=== PATIENT | female | born 1985 ===

== ENCOUNTER 2020-02-26 21:40 | Outpatient (CLI) | payer MEDICAID ==
[~2020-02-26] VITALS: Ht 165.1 cm; Wt 76.5 kg
--- NOTE | 2020-02-26 20:10 | NUR ---
KANNAN YUNG presented to unit via ambulation from ED, accompanied by , with c/o CONTRACTIONS. KANNAN YUNG weighed, gowned, voided, and to bed. EFHM and TOCO applied, VS taken. KANNAN YUNG oriented to bed controls, call light, TV, heat, and A/C controls. Addendum: 02/26/20 at 2244 by PAPA PATEL RN correct time to floor is 2150
[~2020-02-26 21:40] MED LIST: ASPI-586 PO; DOXY25TA56 PO; PREN-8 PO; PYRI100T10 PO
[2020-02-26 22:00] VITALS: BP 110/80
[2020-02-26 22:18] LABS: BILIRUBIN,URINE NEGATIVE (NEGATIVE); CLARITY,URINE CLEAR; COLOR,URINE YELLOW; GLUCOSE, URINE (UA) NEGATIVE (NEGATIVE); KETONES,URINE NEGATIVE (NEGATIVE); LEUKOCYTE ESTERASE ,URINE NEGATIVE (NEGATIVE); NITRITE,URINE NEGATIVE (NEGATIVE); PH,URINE 7.5 (5-9); PROTEIN,URINE NEGATIVE (NEGATIVE)
--- NOTE | 2020-02-26 22:30 | NUR ---
Dr. Rivas notified of patient arrival, complaints, contraction pattern. Orders received to monitor for an hour for cervical change.
[2020-02-26 22:34] LABS: BACTERIA,URINE FEW /HPF
[2020-02-26 22:35] LABS: SQUAMOUS EPITHELIAL CELL,UR 0-2 /HPF
--- NOTE | 2020-02-26 23:40 | NUR ---
Dr. Rivas updated on patient status. Orders received to monitor overnight, give IV fluids, and pain meds.
[2020-02-27] MEDS ORDERED: LACTATED RINGERS 1,000 ML IV ONE
[2020-02-27] MEDS: fentaNYL INJECTION 100 MCG/2 ML AMP IVP PRN ×2 (00:53→05:18)
[2020-02-27] MEDS ORDERED: LACTATED RINGERS 1,000 ML IV SCH (01:00)
[2020-02-27 01:30] VITALS: BP 102/63
[2020-02-27 04:40] VITALS: BP 110/61
--- NOTE | 2020-02-27 06:18 | NUR ---
Dr. Rivas called unit for update on patient. Plans to consult Dr. Mitchell to possibly round on patient.
[2020-02-27 08:20] VITALS: BP 101/60
--- NOTE | 2020-02-27 08:20 | NUR ---
assessment completed, see interventions for further.
--- NOTE | 2020-02-27 08:23 | NUR ---
monitors dc'd. tracing reviewed, FHR 130's. moderate variability present. accels noted. ctx's q 2-8mins.
--- NOTE | 2020-02-27 08:38 | NUR ---
dismissal instructions given, verbalizes understanding. reviewed Sx's to return to clinic. signature page signed, placed on chart.
--- NOTE | 2020-02-27 08:40 | NUR ---
pt ambulated to private vehicle with s/o @ side. pt stable with no sx's of distress.
--- NOTE | 2020-02-27 09:28 | Physician Query-Final Dx ---
ANGELIA VÁSQUEZ 02/27/20 0928: Clinic Account Progress/Dx Physician Query: Please give diagnosis Please include # weeks gestation Date of Service February 26, 2020 at 21:40 BECKY MISTRY DO 02/29/20 0910: Clinic Account Progress/Dx DIAGNOSIS: Diagnosis 38 week GA contractions, not in active labor previous ANGELIA VÁSQUEZ February 27, 2020 09:28 BECKY MISTRY DO February 29, 2020 09:10
== END 2020-02-27 08:50 | disposition home or self-care (01) ==
LOC: WSo 21:40 → LDRP 21:43 → WSo 02-27 08:50
PROVIDERS: ATTEND Family Medicine
DX: O62.9 Abnormality of forces of labor, unspecified (principal); Z3A.38 38 weeks gestation of pregnancy
CPT/HCPCS: 81000; 96361; 96374; 96376; 99214

== ENCOUNTER 2020-02-28 07:25 | Outpatient (RCR) | payer MEDICAID ==
[~2020-02-28] VITALS: Ht 165 cm; Wt 76.3 kg
== END 2020-02-28 15:29 | disposition home or self-care (01) ==
LOC: PREOP 07:25
PROVIDERS: ATTEND Obstetrics & Gynecology
DX: Z01.818 Encounter for other preprocedural examination (principal); Z11.59 Encounter for screening for other viral diseases
CPT/HCPCS: 87635

== ENCOUNTER 2020-02-28 12:35 | Outpatient (CLI) | payer MEDICAID ==
[~2020-02-28] VITALS: Ht 165.1 cm; Wt 77.5 kg
--- NOTE | 2020-02-28 12:29 | NUR ---
KANNAN YUNG presented to unit via wheel chair from ED, accompanied by and and ED staff , with c/o PAIN. KANNAN YUNG weighed, gowned, voided, and to bed. EFHM and TOCO applied, VS taken. KANNAN YUNG oriented to bed controls, call light, TV, heat, and A/C controls.
[2020-02-28 13:08] VITALS: BP 102/66
[2020-02-28 13:17] VITALS: BP 120/66
[2020-02-28 13:38] LABS: BILIRUBIN,URINE NEGATIVE (NEGATIVE); CLARITY,URINE CLEAR; COLOR,URINE YELLOW; GLUCOSE, URINE (UA) NEGATIVE (NEGATIVE); KETONES,URINE 1+ (NEGATIVE); LEUKOCYTE ESTERASE ,URINE NEGATIVE (NEGATIVE); NITRITE,URINE NEGATIVE (NEGATIVE); PH,URINE 7.5 (5-9); PROTEIN,URINE NEGATIVE (NEGATIVE)
--- NOTE | 2020-02-28 13:41 | NUR ---
Notified Dr Rivas of t's mild irregular contractions,SVE 1.5 cm cx post 50% effaced,-2 no change from yesterday. small amount of dark brown blood on exam glove. Pt c/o pain in abdomen,back and legs. Pt rates pain "9". UA sent to lab. "o" Discharge to home for rest, may take tylenol for discomfort, hydration ,labor precautions , and instructions on s/s to return for.
[2020-02-28 14:01] LABS: BACTERIA,URINE TRACE /HPF; RBC,URINE RARE /HPF; WBC,URINE RARE /HPF
--- NOTE | 2020-02-28 14:10 | NUR ---
KANNAN YUNG demonstrates understanding of discharge instructions and accurately returns instructions upon questioning. Copy of Post-Discharge Instructions and Medication Discharge Instructions given to . KANNAN YUNG is able to manage continuing needs after discharge. Patients belongings returned to patient. Skin dry and intact; no breakdown noted. Patient discharged from [facility]- on 02/28/20 at 1410. KANNAN YUNG left floor via wheel chair, accompanied by and women services staff.
--- NOTE | 2020-02-29 08:40 | Physician Query-Final Dx ---
ANGELIA VÁSQUEZ 02/29/20 0840: Clinic Account Progress/Dx Physician Query: Please give diagnosis Please include # weeks gestation Date of Service February 28, 2020 at 12:35 BECKY MISTRY DO 02/29/20 0913: Clinic Account Progress/Dx DIAGNOSIS: Diagnosis 38 week GA contractions, not in active labor previous ANGELIA VÁSQUEZ February 29, 2020 08:40 BECKY MISTRY DO February 29, 2020 09:13
== END 2020-02-28 14:10 | disposition home or self-care (01) ==
LOC: WSo 12:35 → LDRP 12:36 → WSo 14:10
PROVIDERS: ATTEND Family Medicine
DX: O62.9 Abnormality of forces of labor, unspecified (principal); O34.211 Maternal care for low transverse scar from previous cesarean delivery; Z3A.38 38 weeks gestation of pregnancy
CPT/HCPCS: 81000; 99213

== ENCOUNTER 2020-03-03 06:27 | Inpatient (IN) | payer MEDICAID ==
[2020-03-03] VITALS (10 sets, daily range): BP systolic 97–118; BP diastolic 58–97
[~2020-03-03] VITALS: Ht 165.1 cm; Wt 77.3 kg
[2020-03-03] MEDS ORDERED: METOCLOPRAMIDE INJ 10 MG/2 ML (REGLAN) ONE (06:28)
[2020-03-03] MEDS ORDERED: FAMOTIDINE 20MG/2ML IV (PEPCID) ONE (06:29)
[2020-03-03] MEDS ORDERED: CITRIC ACID/SOB CIT (BICITRA) 30 ML UDC ONE (06:29)
[2020-03-03] MEDS ORDERED: ceFAZolin 2 GM IV Premixed 50 ML ONE (06:29)
--- OUTSIDE RECORDS SUMMARY | 2020-03-03 06:34 | XMS REPORT | Clinical Summary ---
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 2.5-0.025 MG ORAL TABLET 2830250 DIPHENOXYLATE-ATROPINE Inactive ZOFRAN 4 MG ORAL TABLET 1 TAB PO Q 6 HRS PRN NAUSEA 07/10/15 ZOFRAN 4 MG ORAL TABLET 533527 ONDANSETRON HCL Inactive CITRATE OF MAGNESIA ORAL SOLUTION 1 bottle today for constipatio n CITRATE OF MAGNESIA ORAL SOLUTION 4612638 MAGNESIUM CITR ATE Inactive PROMETHAZINE HCL 12.5 MG ORAL TABLET 1 tablet by mouth every 6 hours as needed for nausea/vomiting PROMETHAZINE HCL 12.5 MG ORA L TABLET 757444 PROMETHAZINE HCL Inactive PREDNISONE 20 MG ORAL TABLET 1 tablet twice daily for 2 days, then 1 tablet once daily for 2 days PREDNISONE 20 MG ORAL TABLET 468860 PREDNISONE Inactive ALPRAZOLAM 0.25 MG ORAL TABLET 1 tablet by mouth every 8 hours as needed for stress ALPRAZOLAM 0.25 MG ORAL TABLET 001379 ALPRA ZOLAM Inactive FLONASE 50 MCG/ACT NASAL SUSPENSION 1 spray each nostr il twice daily for allergies and runny nose until gone FLON ASE 50 MCG/ACT NASAL SUSPENSION FLUTICASONE PROPIONATE Inactive PREDNISONE 20 MG ORAL TABLET 1 tablet daily for airway inflammat ion PREDNISONE 20 MG ORAL TABLET 030960 PREDNISONE Flomaton ctive NAPROXEN 500 MG ORAL TABLET Take 1 tab BID NAPROXEN 500 MG ORAL TABLET 697221 NAPROXEN Inactive ZOLOFT 50 MG ORAL TABLET 1 tablet by mouth daily 12/08 ZOLOFT 50 MG ORAL TABLET 029943 SERTRALINE HCL Inactive LOMOTIL 2.5-0.025 MG ORAL TABLET 1 tab po four times a day as needed for diarrhea LOMOTIL 2.5-0.025 MG ORAL TABLET 8698655 DIPHENOXYLATE-ATROPINE Inactive CETIRIZINE HCL 10 MG ORAL TABLET 1 po qd PRN Allergies CETIRIZINE HCL 10 MG ORAL TABLET 8724436 CETIRIZINE HCL Inactiv e TUSSIONEX PENNKINETIC ER 10-8 MG/5ML ORAL SUSPENSION E XTENDED RELEASE 5ml po q12hr PRN Cough TUSSIONEX PENNKINETI C ER 10-8 MG/5ML ORAL SUSPENSION EXTENDED RELEASE HYDROCOD POLST-CHLORPHEN POLST I nactive NEXPLANON IMPLANT right arm subcutaneously NEXPLANON IMPLANT ETONOGESTREL IMPL Inactive PROTONIX 40 MG ORAL TABLET DELAYED RELEASE 1 po q a.m. PROTONIX 40 MG ORAL TABLET DELAYED RELEASE 645058 PANTOPRAZOLE SODI UM Inactive CHERATUSSIN AC 100-10 MG/5ML ORAL SYRUP 1 tsp by mouth every 4 hours as needed for cough CHERATUSSIN AC 100-10 MG/5ML ORAL SYRUP 9 70121 GUAIFENESIN-CODEINE Inactive GUAIFENESIN DM 400-20 MG ORAL TABLET 1 pill by mouth t wice daily, if needed for cough GUAIFENESIN DM 400-20 MG ORAL TABLET DEXTROMETHORPHAN-GUAIFENESIN Inactive TUSSIONEX PENNKINETIC ER 10-8 MG/5ML ORAL SUSPENSION E XTENDED RELEASE 5ml po q12hr PRN Cough TUSSIONEX PENNKINETI C ER 10-8 MG/5ML ORAL SUSPENSION EXTENDED RELEASE HYDROCOD POLST-CHLORPHEN POLST I nactive KEFLEX 500 MG ORAL CAPSULE 1 po tid K EFLEX 500 MG ORAL CAPSULE 010664 CEPHALEXIN Inactive DIFLUCAN 100 MG ORAL TABLET 1 tablet by mouth daily, R EPEAT 2ND DOSE IN 7 DAYS IF STILL SYMPTOMATIC DIFLUCAN 100 MG ORAL TABLET 60240 8 FLUCONAZOLE Inactive PROTONIX 40 MG ORAL TABLET DELAYED RELEASE 1 pill by m outh daily, for acid reflux PROTONIX 40 MG ORAL TABLET DELAYED RELEAS E 957272 PANTOPRAZOLE SODIUM Inactive ALPRAZOLAM 0.25 MG ORAL TABLET 1 tablet by mouth twice a day as needed for stress/anxiety ALPRAZOLAM 0.25 MG ORAL TABLET 889162 ALPRAZOLAM Inactive ESCITALOPRAM OXALATE 10 MG ORAL TABLET take 1 tab po qhs for mod ESCITALOPRAM OXALATE 10 MG ORAL TABLET 431940 ESCITALOP JO OXALATE Inactive UNISOM SLEEPTABS 25 MG ORAL TABLET one tab PO qhs 2018 UNISOM SLEEPTABS 25 MG ORAL TABLET DOXYLAMINE SUCCINATE (SLEEP) Flomaton ctive PYRIDOXINE HCL 25 MG ORAL TABLET one tab PO 3-4 times per day 20 12/12/17 PYRIDOXINE HCL 25 MG ORAL TABLET 4855076 PYRIDOXINE HCL Inactive AMOXICILLIN 500 MG ORAL TABLET take 1 tab po TID 08/05 AMOXICILLIN 500 MG ORAL TABLET 998939 AMOXICILLIN Inactive AMOXICILLIN 500 MG ORAL CAPSULE 1 tab by mouth 3 times daily 201 11/24/09 AMOXICILLIN 500 MG ORAL CAPSULE 531424 AMOXICILLIN Inactive ZITHROMAX 250 MG ORAL TABLET 2 po today, then 1 po q days 2-5 20 09/23/25 ZITHROMAX 250 MG ORAL TABLET 435666 AZITHROMYCIN [place] ctive ZITHROMAX 250 MG ORAL TABLET 2 po today, then 1 po q days 2-5 20 10/03/08 ZITHROMAX 250 MG ORAL TABLET 257623 AZITHROMYCIN Arlen ctive AZITHROMYCIN 500 MG ORAL TABLET 1 PO q day x 6 days 03/02/23 AZITHROMYCIN 500 MG ORAL TABLET 573698 AZITHROMYCIN Inactive BACTRIM 400-80 MG ORAL TABLET take one po BID BACTRIM 400- 80 MG ORAL TABLET 599833 SULFAMETHOXAZOLE-TRIMETHOPRIM Inactive AZITHROMYCIN 250 MG ORAL TABLET 2 po qd x 1 day, then 1 po q d x 4 days AZITHROMYCIN 250 MG ORAL TABLET 672931 AZITHROMY ALLISON Inactive PREDNISONE 20 MG ORAL TABLET 2 tabs daily for 3 days, 1 tab daily for 3 days, 1/2 tab daily for 2 days PREDNISONE 20 MG ORAL T ABLET 101270 PREDNISONE Inactive ZITHROMAX 250 MG ORAL TABLET 2 po today, then 1 po q days 2-5 20 06/08/16 ZITHROMAX 250 MG ORAL TABLET 807142 AZITHROMYCIN Arlen ctive FLAGYL 500 MG ORAL TABLET 1 tablet by mouth two times daily 2014 FLAGYL 500 MG ORAL TABLET 104491 METRONIDAZOLE Inacti ve AUGMENTIN 875-125 MG ORAL TABLET 1 tab by mouth twice daily with food AUGMENTIN 875-125 MG ORAL TABLET AMOXICIL ELSA-POT CLAVULANATE Inactive NAPROXEN 500 MG ORAL TABLET one tab PO BID NAPROXEN 500 MG ORAL TABLET 213366 NAPROXEN Inactive PREDNISONE 20 MG ORAL TABLET 2 tabs daily for 3 days, 1 tab daily for 3 days, 1/2 tab daily for 2 days PREDNISONE 20 MG ORAL T ABLET 894699 PREDNISONE Inactive AZITHROMYCIN 250 MG ORAL TABLET 2 po qd x 1 day, then 1 po q d x 4 days AZITHROMYCIN 250 MG ORAL TABLET 419889 AZITHROMY ALLISON Inactive PREDNISONE 20 MG ORAL TABLET 2 tabs daily for 3 days, 1 tab daily for 3 days, 1/2 tab daily for 2 days PREDNISONE 20 MG ORAL T ABLET 839161 PREDNISONE Inactive ZITHROMAX Z-EMIL 250 MG ORAL TABLET 2 today, then 1 daily for 4 d ays ZITHROMAX Z-EMIL 250 MG ORAL TABLET 351113 AZITHROMYCIN Inactive CEFDINIR 300 MG ORAL CAPSULE 1 po BID x 10 days 12/18 CEFDINIR 300 MG ORAL CAPSULE 20030127 CEFDINIR Inactive CEFDINIR 300 MG ORAL CAPSULE 1 po BID x 10 days CEFDINIR 300 MG ORAL CAPSULE 20030127 CEFDINIR Inactive PREDNISONE 20 MG ORAL TABLET 2 tabs daily for 3 days, 1 tab daily for 3 days, 1/2 tab daily for 2 days PREDNISONE 20 MG ORAL T ABLET 047044 PREDNISONE Inactive BACTRIM DS 800-160 MG ORAL TABLET 1 tab by mouth twice daily 201 05/02/30 BACTRIM DS 800-160 MG ORAL TABLET 200308 TRIMETHOPRIM-SULFAMETHOXAZOLE Inactive ZITHROMAX Z-EMIL 250 MG ORAL TABLET 2 today, then 1 daily for 4 d ays ZITHROMAX Z-EMIL 250 MG ORAL TABLET 152283 AZITHROMYCIN Inactive TAMIFLU 75 MG ORAL CAPSULE 1 po BID x 5 days 0 TAMIFLU 75 MG ORAL CAPSULE 244454 OSELTAMIVIR PHOSPHATE Inactive CEFDINIR 300 MG ORAL CAPSULE 1 po BID x 10 days 01/03 CEFDINIR 300 MG ORAL CAPSULE 810243 CEFDINIR Inactive ZITHROMAX Z-EMIL 250 MG TABS Take two tablets today and then 1 tablet daily for 4 days ZITHROMAX Z-EIML 250 MG TABS 809327 AZITHROM YCIN Inactive AMOXICILLIN 875 MG ORAL TABLET 1 tab by mouth twice daily AMOXICILLIN 875 MG ORAL TABLET 401187 AMOXICILLIN Inactive CIPROFLOXACIN HCL 250 MG TABS Take 1 twice a day for 5 days for bladder infection CIPROFLOXACIN HCL 250 MG TABS 277130 CIPROFLOXACIN HCL Inactive TIZANIDINE HCL 4 MG ORAL TABLET Take one tablet by michael th every 8 hours as needed for muscle spasm TIZANIDINE HCL 4 MG ORAL TABLET 03937 3 TIZANIDINE HCL Inactive Advance Directives Directive Description Start Date PERMISSION TO SHARE Immunizations Vaccine Administration Date Value Standard Lance cription hepatitis B vaccine series yes hepat itis B vaccine, unspecified formulation TB-PPD (tuberculin purified protein derivative), intra dermal administration Tubersol TB-PPD (tuberculin purified protein derivative), intra dermal administration Tubersol hepatitis B vaccine #3 Engerix-B Adult hepatitis B vaccine, unspecified formulation dT (Diphtheria and Tetanus) booster given Boostr ix Tdap Td(adult) unspecified formulation hepatitis A immunization #2 Havrix-Adult hepa titis A vaccine, unspecified formulation hepatitis B vaccine #2 given Engerix-B Adult hep atitis B vaccine, unspecified formulation hepatitis B vaccine #1 given Engerix-B Adult hep atitis B vaccine, unspecified formulation hepatitis A immunization #1 Havrix-Adult hepa titis A vaccine, unspecified formulation DPT immunization #5 DTaP MMR (measles, mumps, rubella) virus immunization #2 Historical DPT immunization #4 DTaP oral polio vaccine (OPV) #4 Historical ez ovirus vaccine, unspecified formulation MMR (measles, mumps, rubella) virus immunization #1 Historical DPT immunization #3 DTaP oral polio vaccine (OPV) #3 Historical ze ovirus vaccine, unspecified formulation DPT immunization #2 DTaP oral polio vaccine (OPV) #2 Historical ez ovirus vaccine, unspecified formulation DPT immunization #1 DTaP oral polio vaccine (OPV) #1 Historical ez ovirus vaccine, unspecified formulation Vital Signs Date Name Value Unit Range Description blood pressure, diastolic, repeated by physician 87 BP kennedy blood pressure, diastolic 87 mm[Hg] BP kennedy blood pressure, systolic, repeated by physician 126 BP sys blood pressure, systolic 126 mm[Hg] BP sys height E&M 66 [in_us] Bdy height pulse rate E&M 102 /min Heart rate temperature E&M 98.0 [degF] Body temp erature weight E&M 160.31 [lb_av] Weight Measure d blood pressure, diastolic, repeated by physician 71 BP kennedy blood pressure, diastolic 71 mm[Hg] BP kennedy blood pressure, systolic, repeated by physician 111 BP sys blood pressure, systolic 111 mm[Hg] BP sys height E&M 66 [in_us] Bdy height pulse rate E&M 82 /min Heart rate temperature E&M 98.2 [degF] Body temp erature weight E&M 159 [lb_av] Weight Measure d blood pressure, diastolic 73 mm[Hg] BP kennedy blood pressure, systolic 123 mm[Hg] BP sys height E&M 66 [in_us] Bdy height pulse rate E&M 74 /min Heart rate temperature E&M 99.5 [degF] Body temp erature weight E&M 160 [lb_av] Weight Measure d blood pressure, diastolic 75 mm[Hg] BP kennedy blood pressure, systolic 132 mm[Hg] BP sys height E&M 66 [in_us] Bdy height pulse rate E&M 84 /min Heart rate temperature E&M 99.0 [degF] Body temp erature weight E&M 159 [lb_av] Weight Measure d blood pressure, diastolic 76 mm[Hg] BP kennedy blood pressure, systolic 130 mm[Hg] BP sys height E&M 66 [in_us] Bdy height pulse rate E&M 73 /min Heart rate weight E&M 171 [lb_av] Weight Measure d blood pressure, diastolic 75 mm[Hg] BP kennedy blood pressure, systolic 128 mm[Hg] BP sys height E&M 66 [in_us] Bdy height pulse rate E&M 79 /min Heart rate temperature E&M 99.0 [degF] Body temp erature weight E&M 176.50 [lb_av] Weight Measure d blood pressure, diastolic 86 mm[Hg] BP kennedy blood pressure, systolic 128 mm[Hg] BP sys height E&M 66 [in_us] Bdy height pulse rate E&M 70 /min Heart rate temperature E&M 99.4 [degF] Body temp erature weight E&M 178.50 [lb_av] Weight Measure d Diagnostic Results Date Name Value Unit Range Description Lab Report: ABO GROUP & RH TYPE, ANTIBOD Y SCREEN, RBCW/REFL 1, CBC (INCL ... - Blood bank ABO blood group O Rh antigen RH(D) POSITIVE antibody screen, serum NO ANTIBODIES DETECTED Lab Report: ABO GROUP & RH TYPE, ANTIBOD Y SCREEN, RBCW/REFL 1, CBC (INCL ... - Chemistry hepatitis B surface antigen NON-REACTIVE NON-RE ACTIVE rapid plasma reagin antibody titer NON-REACTIVE NON-REACTIVE Lab Report: ABO GROUP & RH TYPE, ANTIBOD Y SCREEN, RBCW/REFL 1, CBC (INCL ... - Hematology leukocyte count, blood 10.3 THOUSAND/UL 10*3/mm3 3.8-10. 8 erythrocyte (RBC) count 4.77 MILLION/UL 10*6/mm3 3.80-5. 10 hemoglobin, blood 13.1 g/dL 11.7-15.5 hematocrit, blood 40.6 % 35.0-45.0 mean corpuscular volume, RBC 85.1 fL 80.0-10 0.0 mean corpuscular hemoglobin, RBC 27.5 pg 27. 0-33.0 mean corpuscular hemoglobin concentration, RBC 32.3 G/DL % 32.0-36.0 red blood cell distribution width 13.0 % 11 .0-15.0 platelet count 280 THOUSAND/UL 10*3/mm3 877-267 7107/02/18 mean platelet volume 11.6 fL 7.5-12.5 Lab Report: ABO GROUP & RH TYPE, ANTIBOD Y SCREEN, RBCW/REFL 1, CBC (INCL ... - Lab chlamydia DNA probe NOT DETECTED NOT DETECTED Lab Report: ABO GROUP & RH TYPE, ANTIBOD Y SCREEN, RBCW/REFL 1, CBC (INCL ... - Microbiology Neisseria gonorrhoeae DNA probe NOT DETECTED NO T DETECTED Lab Report: ABO GROUP & RH TYPE, ANTIBOD Y SCREEN, RBCW/REFL 1, CBC (INCL ... - Serology rubella antibody, serum, IgG 5.42 Lab Report: CBC W/DIFF - Hematology leukocyte count, blood 8.2 10^3/MM^3 10*3/mm3 4.6-10.2 neutrophils as percent of blood leukocytes 60.4 % 42.2-75.2 monocytes as percent of blood leukocytes 9.0 % 1.7-9.3 lymphocytes as percent of blood leukocytes 26.8 % 20.5-51.1 erythrocyte (RBC) count 4.58 10^6/MM^3 10*6/mm3 3.80-5.8 0 hemoglobin, blood 12.8 g/dL 12.0-16.0 hematocrit, blood 38.4 % 37.0-47.0 mean corpuscular volume, RBC 84 fL 80-97 mean corpuscular hemoglobin, RBC 27.9 pg 27. 0-31.2 mean corpuscular hemoglobin concentration, RBC 33.2 G/DL % 31.8-35.4 red blood cell distribution width 11.5 % 11 .6-14.8 platelet count 245 10^3/MM^3 10*3/mm3 429-502 0817/09/27 hemoglobin, blood 12.2 g/dL 12.0-16.0 hematocrit, blood 39.1 % 37.0-47.0 mean corpuscular volume, RBC 82 fL 80-97 mean corpuscular hemoglobin, RBC 25.6 pg 27. 0-31.2 mean corpuscular hemoglobin concentration, RBC 31.2 G/DL % 31.8-35.4 red blood cell distribution width 12.5 % 11 .6-14.8 platelet count 297 10^3/MM^3 10*3/mm3 503-324 7862/09/27 erythrocyte (RBC) count 4.77 10^6/MM^3 10*6/mm3 3.80-5.8 0 lymphocytes as percent of blood leukocytes 29.2 % 20.5-51.1 monocytes as percent of blood leukocytes 9.7 % 1.7-9.3 neutrophils as percent of blood leukocytes 55.9 % 42.2-75.2 leukocyte count, blood 7.6 10^3/MM^3 10*3/mm3 4.6-10.2 Lab Report: Comp. Metabolic Panel, Thyro id Stimulating Hormone (L) - Chemistry sodium, serum 138 mmol/L 771-845 6597/04/11 carbon dioxide, venous blood 27.1 mmol/L 21.0-32 .0 potassium, serum 4.8 mmol/L 3.5-5.2 chloride, serum 101 mmol/L 98-107 blood glucose 87 mg/dL 65-95 urea nitrogen, blood 8 mg/dL 7-18 creatinine, serum 0.78 mg/dL 0.60-1.30 Estimated Glomerular Filtration Rate (calc) 90 (?) mL/min/1.73m2 = OR > 60 mL/min alanine aminotransferase (SGPT), serum 19 U/L 12-78 aspartate aminotransferase (SGOT), serum 10 U/L 15-37 calcium, serum 9.4 mg/dL 8.5-10.1 bilirubin, serum, total 0.20 mg/dL 0.00-1.00 TSH 1.99 m[iU]/mL 0.36-3.74 Lab Report: Comp. Metabolic Panel, Thyro id Stimulating Hormone (L) - Lab Alkaline phosphatase 77 50-136 Lab Report: Thyroid Stimulating Hormone (L), UADIP W/MICRO, AUTO, Wet Pr ... - Chemistry RBC, urine, dipstick 1+ Negative TSH 1.16 m[iU]/mL 0.36-3.74 protein, total urine random Negative mg/dL Negative Lab Report: Thyroid Stimulating Hormone (L), UADIP W/MICRO, AUTO, Wet Pr ... - Urinalysis glucose, urine, semiquantitative Negative Neg ative ketones, urine, by test strip 4+ Negati ve urine color Yellow Colorless;Lightyellow;St raw;Yellow appearance, urine Clear Clear specific gravity, urine >=1.030 1.000-1.030 pH, urine, semiquantitative 6.0 5.0-8.5 urobilinogen, urine, semiquantitative (dipstick) 0.2 E .U./dL Normal leukocyte esterase, urine, by dipstick Negative Negative nitrite, urine, semiquantitative Negative Neg ative bilirubin, urine Negative Negative Office Visit: Initial OB Visit - Genetic s/fertility test, date 11/29/2018 Office Visit: Initial OB Visit - Microbi ology Herpes Simplex Virus Genital no Office Visit: Initial OB Visit - Urinaly sis protein, urine, semiquantitative (dipstick) UC glucose, urine, semiquantitative UC nitrite, urine, semiquantitative UC Office Visit: possible UTI or yeast infe ction - Chemistry RBC, urine, dipstick hemolyzed trace protein, total urine random negative mg/dL Office Visit: possible UTI or yeast infe ction - Urinalysis pH, urine, semiquantitative 5 specific gravity, urine 1.025 ketones, urine, by test strip trace (5) bilirubin, urine negative glucose, urine, semiquantitative negative urinalysis, routine Clean Catch urine color yellow appearance, urine clear leukocyte esterase, urine, by dipstick negative nitrite, urine, semiquantitative negative urobilinogen, urine, semiquantitative (dipstick) 0.2 Office Visit: vaginal bleeding, nausea 3 06 - Chemistry HDL cholesterol, serum, target level 40 mg/dL cholesterol, target level 200 mg/dL triglyceride, target level 150 mg/dL Encounters Code Encounter Date Provider Facility CPT-28503 Level 3 Est. Patient 16:14:18 [facility] Level 4 Est. Patient 16:18:17 CABINET INSTALLER Myrna maldonado MD [facility] CPT-77440 Level 4 Est. Patient 16:39:44 CABINET INSTALLER Jose Zhong MD [facility] CPT-67978 [id number] Vst-Est Level IV 13:45:[address] Tali Devi PA-C [facility] CPT-72905 [id number] Vst-Est Level III 09:41:31 CDT Arie Casper MD [facility] CPT-61528 [id number] Vst-Est Level III 18:20:11 CDT Me olbito Russ APRN [facility] CPT-37730 [id number] Vst-Est Level III 17:21:41 CDT Me lobito Russ [facility] CPT-72974 [id number] Vst-Est Level IV 13:30:22 C NIC Casper MD [facility] CPT-88960 Level 4 Est. Patient 13:05:26 CDT Myrna Kidd joel ALCALA [facility]-57946 [id number] Vst-Est Level IV 20:50:21 C DT Arie Casper MD [facility] CPT-11705 Level 3 Est. Patient 11:49:34 CABINET INSTALLER Jessica boyd [facility] CPT-55670 Level 3 Est. Patient 14:55:50 CABINET INSTALLER Jose Zhong MD [facility] CPT-99212 Level 3 Est. Patient 10:21:41 CABINET INSTALLER Arie mcqueen MD [facility] CPT-56494 Level 3 Est. Patient 11:35:15 CABINET INSTALLER Arie mcqueen MD [facility] CPT-39556 Level 3 Est. Patient 15:40:28 CDT Brii Are [facility] CPT-25718 Level 3 Est. Patient 16:40:36 CDT Arie mcqueen MD [facility] CPT-32795 Level 4 Est. Patient 15:29:22 CABINET INSTALLER Arie mcqueen MD [facility] CPT-19819 Level 3 Est. Patient 15:18:16 CABINET INSTALLER Jono black DO [facility] CPT-67648 Level 4 Est. Patient 12:08:40 CABINET INSTALLER Brii Are [facility] CPT-62004 Level 3 Est. Patient 09:24:42 CDT Brii Are [facility] CPT-62273 Level 3 Est. Patient 09:12:56 CDT Arie cmqueen MD [facility] CPT-54292 Level 3 Est. Patient 16:40:54 CDT Jose Zhong MD [facility] CPT-81337 Level 2 Est. Patient 13:01:13 CDT Brii Yepez ll [facility] CPT-15965 Level 3 Est. Patient 11:55:30 CABINET INSTALLER Jono black DO [facility] CPT-86492 Level 3 Est. Patient 09:52:36 CABINET INSTALLER Brii Yepez ll [facility] CPT-68805 Level 3 Est. Patient 16:25:33 CABINET INSTALLER Rich Rosales MD [facility] CPT-96375 Level 3 Est. Patient 20:33:55 CDT Arie mcqueen MD [facility] CPT-05319 Level 3 Est. Patient 14:18:20 CDT Rich Rosales MD [facility] CPT-23624 Level 4 Est. Patient 09:34:31 CDT Arie mcqueen MD [facility] CPT-79524 Level 3 Est. Patient 09:08:55 CABINET INSTALLER Liilana vincent MD PhD [facility] CPT-65415 Level 3 Est. Patient 16:44:07 CABINET INSTALLER Arie mcqueen MD [facility] CPT-51622 Level 3 Est. Patient 10:44:27 CDT Arie mcqueen MD [facility] CPT-13875 Level 3 Est. Patient 08:55:41 CDT Jose Zhong MD [facility] CPT-22741 Level 3 Est. Patient 18:37:31 CDT Liliana vincent MD PhD [facility] CPT-81028 Level 3 Est. Patient 14:28:23 CDT Abelardo HERNANDEZ [facility] CPT-56080 Level 3 Est. Patient 15:18:13 CABINET INSTALLER Arie mcqueen MD [facility] CPT-69797 Level 3 Est. Patient 10:11:29 CABINET INSTALLER Arie mcqueen MD [facility] CPT-91332 Level 3 Est. Patient 10:55:57 CABINET INSTALLER Jono black DO [facility] CPT-18552 Level 3 Est. Patient 17:29:05 CDT Arie mcqueen MD [facility] Procedures Code Procedure Name Date Entry Date Standard Desc ription CPT-61943 Venipuncture Draw Fee 17:00:58 CDT CPT-EVST Evisit 13:43:28 CDT CPT-25356 Sono OB transvag XRAY USE ONLY 17:12:53 CS T CPT-62237 Sono OB transvag XRAY USE ONLY 17:11:12 CS T CPT-87177 UHCG Urine - MARC ONLY 12:13:59 CABINET INSTALLER 12/11 CPT-86454 Spec Collection and Handling Fee 12:13:[address] CPT-66786 Visit 12:13:59 CABINET INSTALLER CPT-76433 First Vx - Ix admin via ID I M or jet injects without counseling by physician 13:00:15 CABINET INSTALLER CPT-98126 Flulaval Intramuscular Injectable 13:00:15 CABINET INSTALLER CPT-72858 Urine Dip (Floor Use Only) 12:20:20 CABINET INSTALLER 201 06/03/24 CPT-83063 Sono Soft Tissue Head and Neck - XRAY US E ONLY 17:10:14 CDT CPT-60928 Ear Wash with irrigation 17:21:41 CDT 07/04 CPT-24935 Nexplanon Removal 15:40:28 CDT CPT-23870 Sono transvag pelvis non OB uterus ovari es cervix - XRAY USE ONLY 08:58:14 CABINET INSTALLER CPT-38359 UA w micro - LAB USE ONLY 16:04:56 CABINET INSTALLER 2015 CPT-57556 Wet Prep/GEN - LAB USE ONLY 16:04:56 CABINET INSTALLER 20 08/10/29 CPT-86723 First Vx - Ix admin via ID I M or jet injects without counseling by physician 16:57:10 CDT CPT-35009 Fluzone Preservative Free Intramuscular Suspension 16:57:10 CDT CPT-J0696 Rocephin 1000 mg (Ceftriaxone) 11:49:23 CDT CPT-J1040 Depo Medrol 80 mg (Methyl Prednisolone A cetate) 11:49:23 CDT CPT-J1100 Decadron 8mg (Dexamethasone) 11:49:23 CDT 2 CPT-78435 Abx/Therapy Injection 11:49:23 CDT CPT-15173 Abx/Therapy Injection 11:49:23 CDT CPT-31804 Abd compl w upright 09:07:26 CABINET INSTALLER CPT-63278 Ear Wash 16:12:47 CABINET INSTALLER CPT-OV Office Visit 11:12:01 CDT CPT-OV Office Visit 15:30:23 CDT CPT-27622 Sono pelvis non OB uterus ovaries cervix 15:50:44 CDT CPT-12307 Hand comp min 3V 16:42:32 CDT CPT-20136 Abd compl w upright 12:17:01 CDT CPT-52109 Nexplanon Placement 15:07:39 CABINET INSTALLER CPT-17224 Removal of IUD 15:07:39 CABINET INSTALLER CPT-51150 TB Tubersol 12:09:32 CDT CPT-61450 TB Tubersol 13:55:43 CDT
--- OUTSIDE RECORDS SUMMARY | 2020-03-03 06:35 | XMS REPORT | Clinical Summary ---
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 DO [facility] CPT-76820 Level 4 Est. Patient 12:08:40 MECHANICAL RELIABILITY ENGINEER Brii Are [facility] CPT-70363 Level 3 Est. Patient 09:24:42 CDT Brii Are [facility] CPT-31977 Level 3 Est. Patient 09:12:56 CDT Arie mcqueen MD [facility] CPT-81101 Level 3 Est. Patient 16:40:54 CDT Jose Zhong MD [facility] CPT-92880 Level 2 Est. Patient 13:01:13 CDT Brii Yepez ll [facility] CPT-14053 Level 3 Est. Patient 11:55:30 MECHANICAL RELIABILITY ENGINEER Jono black DO [facility] CPT-37825 Level 3 Est. Patient 09:52:36 MECHANICAL RELIABILITY ENGINEER Brii Yepez ll [facility] CPT-05905 Level 3 Est. Patient 16:25:33 MECHANICAL RELIABILITY ENGINEER Rich Rosales MD [facility] CPT-85117 Level 3 Est. Patient 20:33:55 CDT Arie mcqueen MD [facility] CPT-00046 Level 3 Est. Patient 14:18:20 CDT Rich Rosales MD [facility] CPT-54521 Level 4 Est. Patient 09:34:31 CDT Arie mcqueen MD [facility] CPT-71005 Level 3 Est. Patient 09:08:55 MECHANICAL RELIABILITY ENGINEER Liliana vincent MD PhD [facility] CPT-17542 Level 3 Est. Patient 16:44:07 MECHANICAL RELIABILITY ENGINEER Arie mcqueen MD [facility] CPT-75182 Level 3 Est. Patient 10:44:27 CDT Arie mcqueen MD [facility] CPT-70945 Level 3 Est. Patient 08:55:41 CDT Jose Zhong MD [facility] CPT-44039 Level 3 Est. Patient 18:37:31 CDT Liliana vincent MD PhD [facility] CPT-80090 Level 3 Est. Patient 14:28:23 CDT Abelardo HERNANDEZ [facility] CPT-39507 Level 3 Est. Patient 15:18:13 MECHANICAL RELIABILITY ENGINEER Arie mcqueen MD [facility] CPT-22933 Level 3 Est. Patient 10:11:29 MECHANICAL RELIABILITY ENGINEER Arie mcqueen MD [facility] CPT-74156 Level 3 Est. Patient 10:55:57 MECHANICAL RELIABILITY ENGINEER Jono black DO [facility] CPT-28756 Level 3 Est. Patient 17:29:05 CDT Arie mcqueen MD [facility] Procedures Code Procedure Name Date Entry Date Standard Desc ription CPT-70643 Venipuncture Draw Fee 17:00:58 CDT CPT-EVST Evisit 13:43:28 CDT CPT-79348 Sono OB transvag XRAY USE ONLY 17:12:53 CS T CPT-80057 Sono OB transvag XRAY USE ONLY 17:11:12 CS T CPT-76487 UHCG Urine - MARC ONLY 12:13:59 MECHANICAL RELIABILITY ENGINEER 12/11 CPT-38320 Spec Collection and Handling Fee 12:13:[address] CPT-96636 Visit 12:13:59 MECHANICAL RELIABILITY ENGINEER CPT-04076 First Vx - Ix admin via ID I M or jet injects without counseling by physician 13:00:15 MECHANICAL RELIABILITY ENGINEER CPT-79999 Flulaval Intramuscular Injectable 13:00:15 MECHANICAL RELIABILITY ENGINEER CPT-16291 Urine Dip (Floor Use Only) 12:20:20 MECHANICAL RELIABILITY ENGINEER 201 06/03/24 CPT-24542 Sono Soft Tissue Head and Neck - XRAY US E ONLY 17:10:14 CDT CPT-38662 Ear Wash with irrigation 17:21:41 CDT 07/04 CPT-44940 Nexplanon Removal 15:40:28 CDT CPT-87401 Sono transvag pelvis non OB uterus ovari es cervix - XRAY USE ONLY 08:58:14 MECHANICAL RELIABILITY ENGINEER CPT-66481 UA w micro - LAB USE ONLY 16:04:56 MECHANICAL RELIABILITY ENGINEER 2015 CPT-84054 Wet Prep/GEN - LAB USE ONLY 16:04:56 MECHANICAL RELIABILITY ENGINEER 20 08/10/29 CPT-17584 First Vx - Ix admin via ID I M or jet injects without counseling by physician 16:57:10 CDT CPT-75213 Fluzone Preservative Free Intramuscular Suspension 16:57:10 CDT CPT-J0696 Rocephin 1000 mg (Ceftriaxone) 11:49:23 CDT CPT-J1040 Depo Medrol 80 mg (Methyl Prednisolone A cetate) 11:49:23 CDT CPT-J1100 Decadron 8mg (Dexamethasone) 11:49:23 CDT 2 CPT-54089 Abx/Therapy Injection 11:49:23 CDT CPT-27716 Abx/Therapy Injection 11:49:23 CDT CPT-03670 Abd compl w upright 09:07:26 MECHANICAL RELIABILITY ENGINEER CPT-47010 Ear Wash 16:12:47 MECHANICAL RELIABILITY ENGINEER CPT-OV Office Visit 11:12:01 CDT CPT-OV Office Visit 15:30:23 CDT CPT-97484 Sono pelvis non OB uterus ovaries cervix 15:50:44 CDT CPT-39495 Hand comp min 3V 16:42:32 CDT CPT-57534 Abd compl w upright 12:17:01 CDT CPT-86291 Nexplanon Placement 15:07:39 MECHANICAL RELIABILITY ENGINEER CPT-63648 Removal of IUD 15:07:39 MECHANICAL RELIABILITY ENGINEER CPT-20747 TB Tubersol 12:09:32 CDT CPT-91837 TB Tubersol 13:55:43 CDT
--- OUTSIDE RECORDS SUMMARY | 2020-03-03 06:36 | XMS REPORT | Clinical Summary ---
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 Level 2 Est. Patient 13:01:13 CDT Brii Are ll [facility] CPT-20583 Level 3 Est. Patient 11:55:30 PROGRAM WRITER Jono black [facility] CPT-45372 Level 3 Est. Patient 09:52:36 PROGRAM WRITER Brii Are ll [facility] CPT-08887 Level 3 Est. Patient 16:25:33 PROGRAM WRITER Rich Rosales MD [facility] CPT-53609 Level 3 Est. Patient 20:33:55 CDT Arie mcqueen MD [facility] CPT-51710 Level 3 Est. Patient 14:18:20 CDT Rich Rosales MD [facility] CPT-83834 Level 4 Est. Patient 09:34:31 CDT Arie mcqueen MD [facility] CPT-83909 Level 3 Est. Patient 09:08:55 PROGRAM WRITER Liliana vincent MD PhD [facility] CPT-67116 Level 3 Est. Patient 16:44:07 PROGRAM WRITER Arie mcqueen MD [facility] CPT-47278 Level 3 Est. Patient 10:44:27 CDT Arie mcqueen MD [facility] CPT-42406 Level 3 Est. Patient 08:55:41 CDT Jose Zhong MD [facility] CPT-27676 Level 3 Est. Patient 18:37:31 CDT Liliana vincent MD PhD [facility] CPT-59782 Level 3 Est. Patient 14:28:23 CDT Abelardo HERNANDEZ [facility] CPT-36316 Level 3 Est. Patient 15:18:13 PROGRAM WRITER Arie mcqueen MD [facility] CPT-77802 Level 3 Est. Patient 10:11:29 PROGRAM WRITER Arie mcqueen MD [facility] CPT-19287 Level 3 Est. Patient 10:55:57 PROGRAM WRITER Jono black DO [facility] CPT-34117 Level 3 Est. Patient 17:29:05 CDT Arie mcqueen MD [facility] Procedures Code Procedure Name Date Entry Date Standard Desc ription CPT-EVST Evisit 13:43:28 CDT CPT-59910 Sono OB transvag XRAY USE ONLY 17:12:53 CS T CPT-84695 Sono OB transvag XRAY USE ONLY 17:11:12 CS T CPT-44774 UHCG Urine - MARC ONLY 12:13:59 PROGRAM WRITER 12/11 CPT-33851 Spec Collection and Handling Fee 12:13:[address] CPT-92011 Visit 12:13:59 PROGRAM WRITER CPT-49985 First Vx - Ix admin via ID I M or jet injects without counseling by physician 13:00:15 PROGRAM WRITER CPT-55849 Flulaval Intramuscular Injectable 13:00:15 PROGRAM WRITER CPT-62912 Urine Dip (Floor Use Only) 12:20:20 PROGRAM WRITER 201 06/03/24 CPT-49267 Sono Soft Tissue Head and Neck - XRAY US E ONLY 17:10:14 CDT CPT-08112 Ear Wash with irrigation 17:21:41 CDT 07/04 CPT-31709 Nexplanon Removal 15:40:28 CDT CPT-71926 Sono transvag pelvis non OB uterus ovari es cervix - XRAY USE ONLY 08:58:14 PROGRAM WRITER CPT-33107 UA w micro - LAB USE ONLY 16:04:56 PROGRAM WRITER 2015 CPT-15173 Wet Prep/GEN - LAB USE ONLY 16:04:56 PROGRAM WRITER 20 08/10/29 CPT-07496 First Vx - Ix admin via ID I M or jet injects without counseling by physician 16:57:10 CDT CPT-44431 Fluzone Preservative Free Intramuscular Suspension 16:57:10 CDT CPT-J0696 Rocephin 1000 mg (Ceftriaxone) 11:49:23 CDT CPT-J1040 Depo Medrol 80 mg (Methyl Prednisolone A cetate) 11:49:23 CDT CPT-J1100 Decadron 8mg (Dexamethasone) 11:49:23 CDT 2 CPT-59425 Abx/Therapy Injection 11:49:23 CDT CPT-75975 Abx/Therapy Injection 11:49:23 CDT CPT-65673 Abd compl w upright 09:07:26 PROGRAM WRITER CPT-83059 Ear Wash 16:12:47 PROGRAM WRITER CPT-OV Office Visit 11:12:01 CDT CPT-OV Office Visit 15:30:23 CDT CPT-65122 Sono pelvis non OB uterus ovaries cervix 15:50:44 CDT CPT-74187 Hand comp min 3V 16:42:32 CDT CPT-00790 Abd compl w upright 12:17:01 CDT CPT-72788 Nexplanon Placement 15:07:39 PROGRAM WRITER CPT-99184 Removal of IUD 15:07:39 PROGRAM WRITER CPT-81407 TB Tubersol 12:09:32 CDT CPT-30010 TB Tubersol 13:55:43 CDT
--- OUTSIDE RECORDS SUMMARY | 2020-03-03 06:36 | XMS REPORT | Clinical Summary ---
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 CPT-07602 Level 3 Est. Patient 17:29:05 CDT Arie mcqueen MD [facility] Procedures Code Procedure Name Date Entry Date Standard Desc ription CPT-EVST Evisit 13:43:28 CDT CPT-21197 Sono OB transvag XRAY USE ONLY 17:12:53 CS T CPT-73290 Sono OB transvag XRAY USE ONLY 17:11:12 CS T CPT-95975 UHCG Urine - MARC ONLY 12:13:59 VOCATIONAL REHABILITATION TECHNICIAN 12/11 CPT-11893 Spec Collection and Handling Fee 12:13:[address] CPT-85108 Visit 12:13:59 VOCATIONAL REHABILITATION TECHNICIAN CPT-64053 First Vx - Ix admin via ID I M or jet injects without counseling by physician 13:00:15 VOCATIONAL REHABILITATION TECHNICIAN CPT-63004 Flulaval Intramuscular Injectable 13:00:15 VOCATIONAL REHABILITATION TECHNICIAN CPT-55159 Urine Dip (Floor Use Only) 12:20:20 VOCATIONAL REHABILITATION TECHNICIAN 201 06/03/24 CPT-21134 Sono Soft Tissue Head and Neck - XRAY US E ONLY 17:10:14 CDT CPT-18791 Ear Wash with irrigation 17:21:41 CDT 07/04 CPT-39874 Nexplanon Removal 15:40:28 CDT CPT-90615 Sono transvag pelvis non OB uterus ovari es cervix - XRAY USE ONLY 08:58:14 VOCATIONAL REHABILITATION TECHNICIAN CPT-41255 UA w micro - LAB USE ONLY 16:04:56 VOCATIONAL REHABILITATION TECHNICIAN 2015 CPT-00374 Wet Prep/GEN - LAB USE ONLY 16:04:56 VOCATIONAL REHABILITATION TECHNICIAN 20 08/10/29 CPT-84986 First Vx - Ix admin via ID I M or jet injects without counseling by physician 16:57:10 CDT CPT-44853 Fluzone Preservative Free Intramuscular Suspension 16:57:10 CDT CPT-J0696 Rocephin 1000 mg (Ceftriaxone) 11:49:23 CDT CPT-J1040 Depo Medrol 80 mg (Methyl Prednisolone A cetate) 11:49:23 CDT CPT-J1100 Decadron 8mg (Dexamethasone) 11:49:23 CDT 2 CPT-89495 Abx/Therapy Injection 11:49:23 CDT CPT-16821 Abx/Therapy Injection 11:49:23 CDT CPT-98714 Abd compl w upright 09:07:26 VOCATIONAL REHABILITATION TECHNICIAN CPT-63590 Ear Wash 16:12:47 VOCATIONAL REHABILITATION TECHNICIAN CPT-OV Office Visit 11:12:01 CDT CPT-OV Office Visit 15:30:23 CDT CPT-18834 Sono pelvis non OB uterus ovaries cervix 15:50:44 CDT CPT-55287 Hand comp min 3V 16:42:32 CDT CPT-72458 Abd compl w upright 12:17:01 CDT CPT-27923 Nexplanon Placement 15:07:39 VOCATIONAL REHABILITATION TECHNICIAN CPT-34822 Removal of IUD 15:07:39 VOCATIONAL REHABILITATION TECHNICIAN CPT-92859 TB Tubersol 12:09:32 CDT CPT-27561 TB Tubersol 13:55:43 CDT
--- OUTSIDE RECORDS SUMMARY | 2020-03-03 06:37 | XMS REPORT | Clinical Summary ---
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 12:13:[address] CPT-42116 Visit 12:13:59 RUNNER OUT CPT-43354 First Vx - Ix admin via ID I M or jet injects without counseling by physician 13:00:15 RUNNER OUT CPT-92837 Flulaval Intramuscular Injectable 13:00:15 RUNNER OUT CPT-30294 Urine Dip (Floor Use Only) 12:20:20 RUNNER OUT 201 06/03/24 CPT-44846 Sono Soft Tissue Head and Neck - XRAY US E ONLY 17:10:14 CDT CPT-36663 Ear Wash with irrigation 17:21:41 CDT 07/04 CPT-22284 Nexplanon Removal 15:40:28 CDT CPT-15206 Sono transvag pelvis non OB uterus ovari es cervix - XRAY USE ONLY 08:58:14 RUNNER OUT CPT-35691 UA w micro - LAB USE ONLY 16:04:56 RUNNER OUT 2015 CPT-82330 Wet Prep/GEN - LAB USE ONLY 16:04:56 RUNNER OUT 20 08/10/29 CPT-24817 First Vx - Ix admin via ID I M or jet injects without counseling by physician 16:57:10 CDT CPT-93927 Fluzone Preservative Free Intramuscular Suspension 16:57:10 CDT CPT-J0696 Rocephin 1000 mg (Ceftriaxone) 11:49:23 CDT CPT-J1040 Depo Medrol 80 mg (Methyl Prednisolone A cetate) 11:49:23 CDT CPT-J1100 Decadron 8mg (Dexamethasone) 11:49:23 CDT 2 CPT-66805 Abx/Therapy Injection 11:49:23 CDT CPT-96537 Abx/Therapy Injection 11:49:23 CDT CPT-33500 Abd compl w upright 09:07:26 RUNNER OUT CPT-32275 Ear Wash 16:12:47 RUNNER OUT CPT-OV Office Visit 11:12:01 CDT CPT-OV Office Visit 15:30:23 CDT CPT-10346 Sono pelvis non OB uterus ovaries cervix 15:50:44 CDT CPT-06899 Hand comp min 3V 16:42:32 CDT CPT-53485 Abd compl w upright 12:17:01 CDT CPT-65649 Nexplanon Placement 15:07:39 RUNNER OUT CPT-30766 Removal of IUD 15:07:39 RUNNER OUT CPT-32565 TB Tubersol 12:09:32 CDT CPT-22788 TB Tubersol 13:55:43 CDT
--- NOTE | 2020-03-03 06:38 | NUR ---
KANNAN YUNG presented to unit via wc from ED, accompanied by so , with c/o SCHEDULED SECTION. KANNAN YUNG weighed, gowned, voided, and to bed. EFHM and TOCO applied, VS taken. KANNAN YUNG oriented to bed controls, call light, TV, heat, and A/C controls. Above and further assessments carried out by Christian handley.
--- OUTSIDE RECORDS SUMMARY | 2020-03-03 06:38 | XMS REPORT | Clinical Summary ---
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 3 Est. Patient 10:11:29 PIG MACHINE CRANE OPERATOR Arie mcqueen MD [facility] CPT-52683 Level 3 Est. Patient 10:55:57 PIG MACHINE CRANE OPERATOR Jono black DO [facility] CPT-94760 Level 3 Est. Patient 17:29:05 CDT Arie mcqueen MD [facility] Procedures Code Procedure Name Date Entry Date Standard Desc ription CPT-EVST Evisit 13:43:28 CDT CPT-72421 Sono OB transvag XRAY USE ONLY 17:12:53 CS T CPT-97471 Sono OB transvag XRAY USE ONLY 17:11:12 CS T CPT-13856 UHCG Urine - MARC ONLY 12:13:59 PIG MACHINE CRANE OPERATOR 12/11 CPT-87580 Spec Collection and Handling Fee 12:13:[address] CPT-97560 Visit 12:13:59 PIG MACHINE CRANE OPERATOR CPT-94784 First Vx - Ix admin via ID I M or jet injects without counseling by physician 13:00:15 PIG MACHINE CRANE OPERATOR CPT-72961 Flulaval Intramuscular Injectable 13:00:15 PIG MACHINE CRANE OPERATOR CPT-95849 Urine Dip (Floor Use Only) 12:20:20 PIG MACHINE CRANE OPERATOR 201 06/03/24 CPT-94675 Sono Soft Tissue Head and Neck - XRAY US E ONLY 17:10:14 CDT CPT-37652 Ear Wash with irrigation 17:21:41 CDT 07/04 CPT-27988 Nexplanon Removal 15:40:28 CDT CPT-25509 Sono transvag pelvis non OB uterus ovari es cervix - XRAY USE ONLY 08:58:14 PIG MACHINE CRANE OPERATOR CPT-09145 UA w micro - LAB USE ONLY 16:04:56 PIG MACHINE CRANE OPERATOR 2015 CPT-74194 Wet Prep/GEN - LAB USE ONLY 16:04:56 PIG MACHINE CRANE OPERATOR 20 08/10/29 CPT-99097 First Vx - Ix admin via ID I M or jet injects without counseling by physician 16:57:10 CDT CPT-63729 Fluzone Preservative Free Intramuscular Suspension 16:57:10 CDT CPT-J0696 Rocephin 1000 mg (Ceftriaxone) 11:49:23 CDT CPT-J1040 Depo Medrol 80 mg (Methyl Prednisolone A cetate) 11:49:23 CDT CPT-J1100 Decadron 8mg (Dexamethasone) 11:49:23 CDT 2 CPT-91194 Abx/Therapy Injection 11:49:23 CDT CPT-13259 Abx/Therapy Injection 11:49:23 CDT CPT-50257 Abd compl w upright 09:07:26 PIG MACHINE CRANE OPERATOR CPT-42166 Ear Wash 16:12:47 PIG MACHINE CRANE OPERATOR CPT-OV Office Visit 11:12:01 CDT CPT-OV Office Visit 15:30:23 CDT CPT-24136 Sono pelvis non OB uterus ovaries cervix 15:50:44 CDT CPT-87557 Hand comp min 3V 16:42:32 CDT CPT-57635 Abd compl w upright 12:17:01 CDT CPT-67679 Nexplanon Placement 15:07:39 PIG MACHINE CRANE OPERATOR CPT-90518 Removal of IUD 15:07:39 PIG MACHINE CRANE OPERATOR CPT-39114 TB Tubersol 12:09:32 CDT CPT-37960 TB Tubersol 13:55:43 CDT
--- OUTSIDE RECORDS SUMMARY | 2020-03-03 06:38 | XMS REPORT | Clinical Summary ---
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 MARC ONLY 12:13:59 [employer] 12/11 CPT-69189 Spec Collection and Handling Fee 12:13:[address] CPT-62550 Visit 12:13:59 [employer] CPT-74348 First Vx - Ix admin via ID I M or jet injects without counseling by physician 13:00:15 [employer] CPT-49239 Flulaval Intramuscular Injectable 13:00:15 [employer] CPT-36907 Urine Dip (Floor Use Only) 12:20:20 [employer] 201 06/03/24 CPT-84668 Sono Soft Tissue Head and Neck - XRAY US E ONLY 17:10:14 CDT CPT-72350 Ear Wash with irrigation 17:21:41 CDT 07/04 CPT-48577 Nexplanon Removal 15:40:28 CDT CPT-62948 Sono transvag pelvis non OB uterus ovari es cervix - XRAY USE ONLY 08:58:14 [employer] CPT-28173 UA w micro - LAB USE ONLY 16:04:56 [employer] 2015 CPT-46929 Wet Prep/GEN - LAB USE ONLY 16:04:56 [employer] 20 08/10/29 CPT-03927 First Vx - Ix admin via ID I M or jet injects without counseling by physician 16:57:10 CDT CPT-48441 Fluzone Preservative Free Intramuscular Suspension 16:57:10 CDT CPT-J0696 Rocephin 1000 mg (Ceftriaxone) 11:49:23 CDT CPT-J1040 Depo Medrol 80 mg (Methyl Prednisolone A cetate) 11:49:23 CDT CPT-J1100 Decadron 8mg (Dexamethasone) 11:49:23 CDT 2 CPT-96132 Abx/Therapy Injection 11:49:23 CDT CPT-51926 Abx/Therapy Injection 11:49:23 CDT CPT-01309 Abd compl w upright 09:07:26 [employer] CPT-00722 Ear Wash 16:12:47 [employer] CPT-OV Office Visit 11:12:01 CDT CPT-OV Office Visit 15:30:23 CDT CPT-63191 Sono pelvis non OB uterus ovaries cervix 15:50:44 CDT CPT-09527 Hand comp min 3V 16:42:32 CDT CPT-70020 Abd compl w upright 12:17:01 CDT CPT-34238 Nexplanon Placement 15:07:39 [employer] CPT-81831 Removal of IUD 15:07:39 [employer] CPT-86537 TB Tubersol 12:09:32 CDT CPT-44542 TB Tubersol 13:55:43 CDT
--- OUTSIDE RECORDS SUMMARY | 2020-03-03 06:39 | XMS REPORT | Clinical Summary ---
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 mcqueen MD [facility]-67838 Level 3 Est. Patient 09:08:55 TIER TRUCK DRIVER Liliana vincent MD, PhD [facility] CPT-28211 Level 3 Est. Patient 16:44:07 TIER TRUCK DRIVER Arie mcqueen MD [facility] CPT-42872 Level 3 Est. Patient 10:44:27 CDT Arie mcqueen MD [facility] CPT-98144 Level 3 Est. Patient 08:55:41 CDT Jose Zhong MD [facility] CPT-77521 Level 3 Est. Patient 18:37:31 CDT Liliana vincent MD PhD [facility] CPT-90079 Level 3 Est. Patient 14:28:23 CDT Abelardo HERNANDEZ [facility] CPT-53683 Level 3 Est. Patient 15:18:13 TIER TRUCK DRIVER Arie mcqueen MD [facility] CPT-63900 Level 3 Est. Patient 10:11:29 TIER TRUCK DRIVER Arie mcqueen MD [facility] CPT-99575 Level 3 Est. Patient 10:55:57 TIER TRUCK DRIVER Jono black DO [facility] CPT-58669 Level 3 Est. Patient 17:29:05 CDT Arie mcqueen MD [facility] Procedures Code Procedure Name Date Entry Date Standard Desc ription CPT-EVST Evisit 13:43:28 CDT CPT-73428 Sono OB transvag XRAY USE ONLY 17:12:53 CS T CPT-27137 Sono OB transvag XRAY USE ONLY 17:11:12 CS T CPT-28548 CG Urine - MARC ONLY 12:13:59 TIER TRUCK DRIVER 12/11 CPT-12774 Spec Collection and Handling Fee 12:13:[address] CPT-63943 Visit 12:13:59 TIER TRUCK DRIVER CPT-17585 First Vx - Ix admin via ID I M or jet injects without counseling by physician 13:00:15 TIER TRUCK DRIVER CPT-95243 Flulaval Intramuscular Injectable 13:00:15 TIER TRUCK DRIVER CPT-24076 Urine Dip (Floor Use Only) 12:20:20 TIER TRUCK DRIVER 201 06/03/24 CPT-96334 Sono Soft Tissue Head and Neck - XRAY US E ONLY 17:10:14 CDT CPT-24116 Ear Wash with irrigation 17:21:41 CDT 07/04 CPT-68332 Nexplanon Removal 15:40:28 CDT CPT-46001 Sono transvag pelvis non OB uterus ovari es cervix - XRAY USE ONLY 08:58:14 TIER TRUCK DRIVER CPT-41134 UA w micro - LAB USE ONLY 16:04:56 TIER TRUCK DRIVER 2015 CPT-53038 Wet Prep/GEN - LAB USE ONLY 16:04:56 TIER TRUCK DRIVER 20 08/10/29 CPT-88293 First Vx - Ix admin via ID I M or jet injects without counseling by physician 16:57:10 CDT CPT-97829 Fluzone Preservative Free Intramuscular Suspension 16:57:10 CDT CPT-J0696 Rocephin 1000 mg (Ceftriaxone) 11:49:23 CDT CPT-J1040 Depo Medrol 80 mg (Methyl Prednisolone A cetate) 11:49:23 CDT CPT-J1100 Decadron 8mg (Dexamethasone) 11:49:23 CDT 2 CPT-59295 Abx/Therapy Injection 11:49:23 CDT CPT-47071 Abx/Therapy Injection 11:49:23 CDT CPT-68824 Abd compl w upright 09:07:26 TIER TRUCK DRIVER CPT-29404 Ear Wash 16:12:47 TIER TRUCK DRIVER CPT-OV Office Visit 11:12:01 CDT CPT-OV Office Visit 15:30:23 CDT CPT-97792 Sono pelvis non OB uterus ovaries cervix 15:50:44 CDT CPT-67267 Hand comp min 3V 16:42:32 CDT CPT-33401 Abd compl w upright 12:17:01 CDT CPT-51001 Nexplanon Placement 15:07:39 TIER TRUCK DRIVER CPT-96497 Removal of IUD 15:07:39 TIER TRUCK DRIVER CPT-18223 TB Tubersol 12:09:32 CDT CPT-01067 TB Tubersol 13:55:43 CDT
--- OUTSIDE RECORDS SUMMARY | 2020-03-03 06:40 | XMS REPORT | Clinical Summary ---
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 Procedure Name Date Entry Date Standard Desc ription CPT-EVST Evisit 13:43:28 CDT CPT-05824 Sono OB transvag XRAY USE ONLY 17:12:53 CS T CPT-88689 Sono OB transvag XRAY USE ONLY 17:11:12 CS T CPT-80206 UHCG Urine - MARC ONLY 12:13:59 [employer] 12/11 CPT-07362 Spec Collection and Handling Fee 12:13:[address] CPT-69978 Visit 12:13:59 [employer] CPT-54410 First Vx - Ix admin via ID I M or jet injects without counseling by physician 13:00:15 [employer] CPT-32253 Flulaval Intramuscular Injectable 13:00:15 [employer] CPT-84889 Urine Dip (Floor Use Only) 12:20:20 [employer] 201 06/03/24 CPT-88629 Sono Soft Tissue Head and Neck - XRAY US E ONLY 17:10:14 CDT CPT-48273 Ear Wash with irrigation 17:21:41 CDT 07/04 CPT-64155 Nexplanon Removal 15:40:28 CDT CPT-00088 Sono transvag pelvis non OB uterus ovari es cervix - XRAY USE ONLY 08:58:14 [employer] CPT-45281 UA w micro - LAB USE ONLY 16:04:56 [employer] 2015 CPT-09385 Wet Prep/GEN - LAB USE ONLY 16:04:56 [employer] 20 08/10/29 CPT-56383 First Vx - Ix admin via ID I M or jet injects without counseling by physician 16:57:10 CDT CPT-29548 Fluzone Preservative Free Intramuscular Suspension 16:57:10 CDT CPT-J0696 Rocephin 1000 mg (Ceftriaxone) 11:49:23 CDT CPT-J1040 Depo Medrol 80 mg (Methyl Prednisolone A cetate) 11:49:23 CDT CPT-J1100 Decadron 8mg (Dexamethasone) 11:49:23 CDT 2 CPT-37950 Abx/Therapy Injection 11:49:23 CDT CPT-39001 Abx/Therapy Injection 11:49:23 CDT CPT-19562 Abd compl w upright 09:07:26 [employer] CPT-89741 Ear Wash 16:12:47 [employer] CPT-OV Office Visit 11:12:01 CDT CPT-OV Office Visit 15:30:23 CDT CPT-63400 Sono pelvis non OB uterus ovaries cervix 15:50:44 CDT CPT-33716 Hand comp min 3V 16:42:32 CDT CPT-25556 Abd compl w upright 12:17:01 CDT CPT-85413 Nexplanon Placement 15:07:39 [employer] CPT-25966 Removal of IUD 15:07:39 [employer] CPT-37619 TB Tubersol 12:09:32 CDT CPT-57618 TB Tubersol 13:55:43 CDT
--- OUTSIDE RECORDS SUMMARY | 2020-03-03 06:41 | XMS REPORT | Clinical Summary ---
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 DILAUDID Severe Active Brii MARROQUIN RN Conditions [...] unspecified Health screening V70.0 Active Roseann Crawford Meghan Routine general medical examination at a health [...] quadrant Urinary frequency 788.41 Inactive Roseann Crawford [facility] Urinary frequency Urinary frequency 788.41 Resolved Jose [...] Vaccination for Prophylaxis V04.81 Inactive Brii Russ [employer] Need for prophylactic vaccin ation and inoculation [...] cystitis Active Arie Casper MD Acute cystitis FH BREAST CANCER ICD-V16.3 Inactive Jose Marcelo [...] Fever ICD-780.60 Inactive Liliana Estrada MD PhD 20 08/12/16 Symptom, cough ICD-786.2 Inactive Liliana Estrada MD PhD Vaginal discharge ICD-623.5 Inactive Liliana lares MD PhD Sinusitis, maxillary, acute ICD-461.0 Inactive Myrna Roberto MD Neck pain ICD-723.1 Inactive Jose Zhong MD Dyspareunia ICD-625.0 Inactive oJse Zhong MD Pelvic pain ICD-789.09 Inactive Jose Zhong MD Pharyngitis ICD-462 Inactive Myrna Rboerto MD 2018 Gastroenteritis, acute ICD-558.9 Inactive Sergio [...] DYSPAREUNIA Inactive Jose Zhong MD 20 09/01/01 Supervision high risk , third trimester ICD-V23.9 Inactive Myrna Roberto MD Maternal care for low transverse scar from previous delivery Inactive Myrna Roberto MD Medication List Medication Instructions Start Date Stop Date Generic Name NDC Status Provider Patient Instruction CIPROFLOXACIN HCL 250 MG TABS Take 1 twice a day for 5 days for bladder infection CIPROFLOXACIN HCL 73166362014 Active Arie Casper MD Active PYRIDOXINE HCL 25 MG ORAL TABLET one tab PO 3-4 times per day 12/11 PYRIDOXINE HCL 48627889591 Active Myrna Roberto MD Active UNISOM SLEEPTABS 25 MG ORAL TABLET one tab PO qhs DOXYLAMINE SUCCINATE (SLEEP) 42534618503 Active Myrna Roberto MD Active TYLENOL 325 MG ORAL CAPSULE PRN ACETAMINOPHEN 000 48317761 Active Brii Pacheco Active ESCITALOPRAM OXALATE 10 MG ORAL TABLET take 1 tab po qhs for mod ESCITALOPRAM OXALATE 79892800941 No Longer Active Brii Pacheco Active ALPRAZOLAM 0.25 MG ORAL TABLET 1 tablet by mouth twice a day as needed for stress/anxiety ALPRAZOLAM 26619863149 No Longer Active Brii Pacheco Active PROTONIX 40 MG ORAL TABLET DELAYED RELEASE 1 pill by m outh daily, for acid reflux PANTOPRAZOLE SODIUM 28019026355 No Longer Activ e Brii Pacheco Active DIFLUCAN 100 MG ORAL TABLET 1 tablet by mouth daily, R EPEAT 2ND DOSE IN 7 DAYS IF STILL SYMPTOMATIC FLUCONAZOLE 03427591664 No Long er Active Nilam Weber Active KEFLEX 500 MG ORAL CAPSULE 1 po tid CEPHALEXI N 04277840589 No Longer Active Tali Devi PA-C Active CONCEPT DHA 53.5-38-1 MG ORAL CAPSULE 1 tablet daily [id number] 3 73459908965 Active Oxana Souza LPN Active AMOXICILLIN 875 MG ORAL TABLET 1 tab by mouth twice daily 1 AMOXICILLIN 78744355820 No Longer Active Brii Russ APRN Active TUSSIONEX PENNKINETIC ER 10-8 MG/5ML ORAL SUSPENSION E XTENDED RELEASE 5ml po q12hr PRN Cough HYDROCOD POLST-CHLORPHEN POLST 5 9379323275 No Longer Active Myrna Roberto MD Active ZITHROMAX Z-EMIL 250 MG TABS Take two tablets today and then 1 tablet daily for 4 days AZITHROMYCIN 54232148809 No Longer Active Flaco Rosales MD Active GUAIFENESIN DM 400-20 MG ORAL TABLET 1 pill by mouth t wice daily, if needed for cough DEXTROMETHORPHAN-GUAIFENESIN 08471565778 No Longer Active Rich Rosales MD Active CEFDINIR 300 MG ORAL CAPSULE 1 po BID x 10 days CEFDINIR 55049720569 No Longer Active Jessica Heaton APRN Active CHERATUSSIN AC 100-10 MG/5ML ORAL SYRUP 1 tsp by mouth every 4 hours as needed for cough GUAIFENESIN-CODEINE 69475058137 No Longe r Active Jessica Heaton APRN Active TAMIFLU 75 MG ORAL CAPSULE 1 po BID x 5 days 0 OSELTAMIVIR PHOSPHATE 97957883433 No Longer Active Jose Zhong MD Activ e ZITHROMAX Z-EMIL 250 MG ORAL TABLET 2 today, then 1 daily for 4 d ays AZITHROMYCIN 19800847433 No Longer Active Arie Casper MD Active PROTONIX 40 MG ORAL TABLET DELAYED RELEASE 1 po q a.m. PANTOPRAZOLE SODIUM 66948579950 No Longer Active Arie Casper MD Active BACTRIM DS 800-160 MG ORAL TABLET 1 tab by mouth twice daily 201 05/02/30 TRIMETHOPRIM-SULFAMETHOXAZOLE 59726045220 No Longer Active R [facility] KELLIE Crawford Active NEXPLANON IMPLANT right arm subcutaneously ETONOGESTREL IMPL 28523506876 No Longer Active Brii Arell [employer] Active TUSSIONEX PENNKINETIC ER 10-8 MG/5ML ORAL SUSPENSION E XTENDED RELEASE 5ml po q12hr PRN Cough HYDROCOD POLST-CHLORPHEN POLST 5 4748015279 No Longer Active Brii Arell [employer] Active CETIRIZINE HCL 10 MG ORAL TABLET 1 po qd PRN Allergies CETIRIZINE HCL 21482344146 No Longer Active Brii Areboris [employer] Activ e PREDNISONE 20 MG ORAL TABLET 2 tabs daily for 3 days, 1 tab daily for 3 days, 1/2 tab daily for 2 days PREDNISONE 23466959118 No Longer Active Arie Casper MD Active LOMOTIL 2.5-0.025 MG ORAL TABLET 1 tab po four times a day as needed for diarrhea DIPHENOXYLATE-ATROPINE 85984752049 No Lo nger Active Arie Casper MD Active ZOLOFT 50 MG ORAL TABLET 1 tablet by mouth daily 12/08 SERTRALINE HCL 37366758034 No Longer Active Arie Casper MD Ac tive NAPROXEN 500 MG ORAL TABLET Take 1 tab BID NAPR OXEN 21029926542 No Longer Active Arie Casper MD Active CEFDINIR 300 MG ORAL CAPSULE 1 po BID x 10 days CEFDINIR 79957062360 No Longer Active Brii Areboris [employer] Active PREDNISONE 20 MG ORAL TABLET 1 tablet daily for airway inflammat ion PREDNISONE 04802197606 No Longer Active Brii Arell [employer] A ctive CEFDINIR 300 MG ORAL CAPSULE 1 po BID x 10 days CEFDINIR 67674734868 No Longer Active Jono Gagnon DO Active FLONASE 50 MCG/ACT NASAL SUSPENSION 1 spray each nostr il twice daily for allergies and runny nose until gone FLUT ICASONE PROPIONATE 85305216710 No Longer Active Jono Gagnon DO Active ALPRAZOLAM 0.25 MG ORAL TABLET 1 tablet by mouth every 8 hours as needed for stress ALPRAZOLAM 84736607684 No Longer Active Jono Gagnon DO Active ZITHROMAX Z-EMIL 250 MG ORAL TABLET 2 today, then 1 daily for 4 d ays AZITHROMYCIN 60847246630 No Longer Active Arie Casper MD Active PREDNISONE 20 MG ORAL TABLET 2 tabs daily for 3 days, 1 tab daily for 3 days, 1/2 tab daily for 2 days PREDNISONE 11828925017 No Longer Active Brii Russ APRN Active PREDNISONE 20 MG ORAL TABLET 1 tablet twice daily for 2 days, then 1 tablet once daily for 2 days PREDNISONE 92878805907 No Longer Active Brii Russ APRN Active PROMETHAZINE HCL 12.5 MG ORAL TABLET 1 tablet by mouth every 6 hours as needed for nausea/vomiting PROMETHAZINE HCL 52484102285 No L onger Active Jono Gagnon DO Active CITRATE OF MAGNESIA ORAL SOLUTION 1 bottle today for constipatio n MAGNESIUM CITRATE 91315354117 No Longer Active Jono Gagnon DO Active ZOFRAN 4 MG ORAL TABLET 1 TAB PO Q 6 HRS PRN NAUSEA 07/10/15 ONDANSETRON HCL 28265325738 No Longer Active Brii Russ APRN Acti ve LOMOTIL 2.5-0.025 MG ORAL TABLET 1 to 2 four times a day as needed for diarrhea DIPHENOXYLATE-ATROPINE 07889513207 No Longer Active January Russ APRN Active AMOXICILLIN 500 MG ORAL TABLET 2 tabs twice a day for 10 days 20 07/09/11 AMOXICILLIN 69732270546 No Longer Active Brii Russ APRN Active CYCLOBENZAPRINE HCL 10 MG ORAL TABLET 1/2 - 1 tablet b y mouth three times daily as needed for muscle spasm/pain CYCLOBENZAPRINE HCL 82607907255 No Longer Active Arie Casper MD Active LOMOTIL 2.5-0.025 MG ORAL TABLET 1 to 2 four times a day as needed for diarrhea DIPHENOXYLATE-ATROPINE 06265817826 No Longer Active Fozia Casper MD Active MACROBID 100 MG ORAL CAPSULE 1 cap by mouth twice daily NITROFURANTOIN MONOHYD MACRO 82242500113 No Longer Active Arie Casper MD Active ZYRTEC ALLERGY 10 MG ORAL CAPSULE 1 po qd CE TIRIZINE HCL 95432337322 No Longer Active Arie Casper MD Active AZITHROMYCIN 250 MG ORAL TABLET 2 po qd x 1 day, then 1 po q d x 4 days AZITHROMYCIN 04362337755 No Longer Active Jessica salgado [employer] Active PREDNISONE 20 MG ORAL TABLET 2 tabs daily for 3 days, 1 tab daily for 3 days, 1/2 tab daily for 2 days PREDNISONE 33730386300 No Longer Active Jessica Heaton [employer] Active PROMETHAZINE HCL 25 MG ORAL TABLET 1 four times a day as nee ded for vomiting PROMETHAZINE HCL 41831899580 No Longer Active Myrna Roberto MD Active BACTRIM DS 800-160 MG ORAL TABLET 1 twice a day 05/30 SULFAMETHOXAZOLE-TRIMETHOPRIM 31888591161 No Longer Active Myrna Roberto MD Active VICKS DAYQUIL SEVERE COLD/FLU TABLET 1 tab every 6 hours prn 201 02/22/17 [id number] TABS 30939961215 No Longer Active Chris Roberto MD Active GUAIFENESIN-CODEINE 100-10 MG/5ML ORAL SYRUP 2 tsp every 6 hours prn GUAIFENESIN-CODEINE 91272378908 No Longer Active Myrna Roberto MD Active NAPROXEN 500 MG ORAL TABLET one tab PO BID NAPR OXEN 04583409002 No Longer Active Myrna Roberto MD Active AUGMENTIN 875-125 MG ORAL TABLET 1 tab by mouth twice daily with food AMOXICILLIN-POT CLAVULANATE 36296219587 No Longer Act zaid Liliana Estrada MD PhD Active AMOXICILLIN 500 MG ORAL CAPSULE 1 tab by mouth 3 times daily 201 02/21/05 AMOXICILLIN 06811538791 No Longer Active Liliana Estrada MD PhD Active TESSALON PERLES 100 MG ORAL CAPSULE 1 tablet by mouth 3 times da cory BENZONATATE 80047105911 No Longer Active Liliana Estrada MD PhD Active FLAGYL 500 MG ORAL TABLET 1 tablet by mouth two times daily 2014 METRONIDAZOLE 86481258291 No Longer Active Nilam Weber Ac tive ZITHROMAX 250 MG ORAL TABLET 2 po today, then 1 po q days 2-5 20 06/08/16 AZITHROMYCIN 56698676769 No Longer Active Arie Casper MD Active VITAMINS 0.8 MG ORAL TABLET take 1 tab po qday [id number] 92753566707 No Longer Active Arie Casper MD Active IBUPROFEN 800 MG ORAL TABLET take one po Q 8 hours 201 02/01/16 IBUPROFEN 61253783958 No Longer Active Arie Casper MD Acti ve [facility] TUSSIN COUGH/COLD CF 5-10-100 MG/5ML ORAL LIQUID 2 teasp oons every 4 hours [id number] 67087965359 No Longer Active Blaine Casper MD Active COMTREX COLD/COUGH DAY/NITE MS 5-2-10-325 MG ORAL 2 caps deja ry 4 hours [id number] 01992173081 No Longer Active Landon Casper MD Active CHLORASEPTIC MAX SORE THROAT 15-10 MG MOUTH/THROAT LOZENGE 1 every 2 hours prn BENZOCAINE-MENTHOL 73541888131 No Longer Active Arie Casper MD Active PREDNISONE 20 MG ORAL TABLET 2 tabs daily for 3 days, 1 tab daily for 3 days, 1/2 tab daily for 2 days PREDNISONE 92723784275 No Longer Active Jose Zhong MD Active AZITHROMYCIN 250 MG ORAL TABLET 2 po qd x 1 day, then 1 po q d x 4 days AZITHROMYCIN 94611731544 No Longer Active Jose Mcwilliams MD Active ZOFRAN ODT 4 MG ORAL TABLET DISINTEGRATING 1 po q6hr PRN Nausea ONDANSETRON 80901576381 No Longer Active Rich Rosales MD Active ZOFRAN 4 MG ORAL TABLET 1 tablet every 4 hours ONDANSETRON HCL 37650385292 No Longer Active Rich Rosales MD Activ e MUCINEX 600 MG ORAL TABLET EXTENDED RELEASE 12 HOUR Ta ke 1-2 tablets every 12 hours GUAIFENESIN 03026504076 No Longer Active Rich Rosales MD Active BACTRIM 400-80 MG ORAL TABLET take one po BID SULFAMETHOXAZOLE-TRIMETHOPRIM 60189693382 No Longer Active Abelardo HERNANDEZ Active AZITHROMYCIN 500 MG ORAL TABLET 1 PO q day x 6 days 20 03/02/23 AZITHROMYCIN 05151993266 No Longer Active Tin HERNANDEZ Activ e ZITHROMAX 250 MG ORAL TABLET 2 po today, then 1 po q days 2-5 20 10/03/08 AZITHROMYCIN 58477620155 No Longer Active Arie Casper MD Active ZITHROMAX 250 MG ORAL TABLET 2 po today, then 1 po q days 2-5 20 09/23/25 AZITHROMYCIN 12447411387 No Longer Active Arie Casper MD Active AMOXICILLIN 500 MG ORAL CAPSULE 1 tab by mouth 3 times daily 201 11/24/09 AMOXICILLIN 64884839040 No Longer Active Arie Casper MD Active BACTRIM DS 800-160 MG ORAL TABLET 1 tab by mouth twice daily 201 1/11/15 TRIMETHOPRIM-SULFAMETHOXAZOLE 32155691182 No Longer Active Fozia Casper MD Active AMOXICILLIN 500 MG ORAL TABLET take 1 tab po TID 08/05 AMOXICILLIN 69496228095 No Longer Active Arie Casper MD Acti ve BACTRIM DS 800-160 MG ORAL TABLET 1 tab by mouth twice daily 201 11/03/14 BACTRIM DS 800-160 MG ORAL TABLET 139463 TRIMETHOPRIM-SULFAMETHOXAZOLE Inactive MUCINEX 600 MG ORAL TABLET EXTENDED RELEASE 12 HOUR Ta ke 1-2 tablets every 12 hours MUCINEX 600 MG ORAL TABLET EXTENDED RELEA SE 12 HOUR GUAIFENESIN Inactive ZOFRAN 4 MG ORAL TABLET 1 tablet every 4 hours ZOFRAN 4 MG ORAL TABLET 635871 ONDANSETRON HCL Inactive ZOFRAN ODT 4 MG [...] COLD/COUGH DAY/NITE MS 5-2-10-325 MG ORA L [id number] Inactive [facility] TUSSIN COUGH/COLD CF 5-10-100 MG/5ML ORAL LIQUID 2 teasp oons every 4 hours [facility] TUSSIN COUGH/COLD CF 5-10-100 MG/5ML ORAL LI QUID [id number] Inactive IBUPROFEN 800 MG ORAL TABLET take one po Q 8 hours 201 02/01/16 IBUPROFEN 800 MG ORAL TABLET 016192 IBUPROFEN Inactive VITAMINS 0.8 MG ORAL TABLET take 1 tab po qday VITAMINS 0.8 MG ORAL TABLET [id number] E-FA Inactive TESSALON PERLES 100 MG ORAL CAPSULE 1 tablet by mouth 3 times da cory TESSALON PERLES 100 MG ORAL CAPSULE 337109 BENZONATATE Inactive AMOXICILLIN 500 MG ORAL CAPSULE 1 tab by mouth 3 times daily 201 02/21/05 AMOXICILLIN 500 MG ORAL CAPSULE 339170 AMOXICILLIN Inactive GUAIFENESIN-CODEINE 100-10 MG/5ML ORAL SYRUP 2 tsp every 6 hours prn GUAIFENESIN-CODEINE 100-10 MG/5ML ORAL SYRUP 961639 GUAIFENESIN-CODEINE Inactive VICKS DAYQUIL SEVERE COLD/FLU TABLET 1 tab every 6 hours prn 201 02/22/17 VICKS DAYQUIL SEVERE COLD/FLU TABLET PHENYLEPHRI [id number]-APAP TABS Inactive BACTRIM DS 800-160 MG ORAL TABLET 1 twice a day 05/30 BACTRIM DS 800-160 MG ORAL TABLET 648311 SULFAMETHOXAZOLE-TRIMETHOPRIM Inactiv e PROMETHAZINE HCL 25 MG ORAL TABLET 1 four times a day as nee ded for vomiting PROMETHAZINE HCL 25 MG ORAL TABLET 580762 PROMETHAZINE HCL Inactive ZYRTEC ALLERGY 10 MG ORAL CAPSULE 1 po qd ZYRTEC ALLERGY 10 MG ORAL CAPSULE CETIRIZINE HCL Inactive MACROBID 100 MG ORAL CAPSULE 1 cap by mouth twice daily MACROBID 100 MG ORAL CAPSULE 3631161 NITROFURANTOIN MONOHYD MACRO In active LOMOTIL 2.5-0.025 MG ORAL TABLET 1 to 2 four times a day as needed for diarrhea LOMOTIL 2.5-0.025 MG ORAL TABLET 1352888 DIPHENOXYLATE-ATROPINE Inactive CYCLOBENZAPRINE HCL 10 MG ORAL TABLET 1/2 - 1 tablet b y mouth three times daily as needed for muscle spasm/pain CYCLOBEN ZAPRINE HCL 10 MG ORAL TABLET 478267 CYCLOBENZAPRINE HCL Inactive AMOXICILLIN 500 MG ORAL TABLET 2 tabs twice a day for 10 days 20 07/09/11 AMOXICILLIN 500 MG ORAL TABLET 362628 AMOXICILLIN I nactive LOMOTIL 2.5-0.025 MG ORAL TABLET 1 to 2 four times a day as needed for diarrhea LOMOTIL 2.5-0.025 MG ORAL TABLET 6189196 DIPHENOXYLATE-ATROPINE Inactive ZOFRAN 4 MG ORAL TABLET 1 TAB PO Q 6 HRS PRN NAUSEA 20 07/10/15 ZOFRAN 4 MG ORAL TABLET 603200 ONDANSETRON HCL Inactive CITRATE OF MAGNESIA ORAL SOLUTION 1 bottle today for constipatio n CITRATE OF MAGNESIA ORAL SOLUTION 2176182 MAGNESIUM CITR ATE Inactive PROMETHAZINE HCL 12.5 MG ORAL TABLET 1 tablet by mouth every 6 hours as needed for nausea/vomiting PROMETHAZINE HCL 12.5 MG ORA L TABLET 935454 PROMETHAZINE HCL Inactive PREDNISONE 20 MG ORAL TABLET 1 tablet twice daily for 2 days, then 1 tablet once daily for 2 days PREDNISONE 20 MG ORAL TABLET 619707 PREDNISONE Inactive ALPRAZOLAM 0.25 MG ORAL TABLET 1 tablet by mouth every 8 hours as needed for stress ALPRAZOLAM 0.25 MG ORAL TABLET 850245 ALPRA ZOLAM Inactive FLONASE 50 MCG/ACT NASAL SUSPENSION 1 spray each nostr il twice daily for allergies and runny nose until gone FLON ASE 50 MCG/ACT NASAL SUSPENSION FLUTICASONE PROPIONATE Inactive PREDNISONE 20 MG ORAL TABLET 1 tablet daily for airway inflammat ion PREDNISONE 20 MG ORAL TABLET 748573 PREDNISONE [place] ctive NAPROXEN 500 MG ORAL TABLET Take 1 tab BID NAPROXEN 500 MG ORAL TABLET 683533 NAPROXEN Inactive ZOLOFT 50 MG ORAL TABLET 1 tablet by mouth daily 12/08 ZOLOFT 50 MG ORAL TABLET 281799 SERTRALINE HCL Inactive LOMOTIL 2.5-0.025 MG ORAL TABLET 1 tab po four times a day as needed for diarrhea LOMOTIL 2.5-0.025 MG ORAL TABLET 1234549 DIPHENOXYLATE-ATROPINE Inactive CETIRIZINE HCL 10 MG ORAL TABLET 1 po qd PRN Allergies CETIRIZINE HCL 10 MG ORAL TABLET 7125029 CETIRIZINE HCL Inactiv e TUSSIONEX PENNKINETIC ER 10-8 MG/5ML ORAL SUSPENSION E XTENDED RELEASE 5ml po q12hr PRN Cough TUSSIONEX PENNKINETI C ER 10-8 MG/5ML ORAL SUSPENSION EXTENDED RELEASE HYDROCOD POLST-CHLORPHEN POLST I nactive NEXPLANON IMPLANT right arm subcutaneously NEXPLANON IMPLANT ETONOGESTREL IMPL Inactive PROTONIX 40 MG ORAL TABLET DELAYED RELEASE 1 po q a.m. PROTONIX 40 MG ORAL TABLET DELAYED RELEASE 631554 PANTOPRAZOLE SODI UM Inactive CHERATUSSIN AC 100-10 MG/5ML ORAL SYRUP 1 tsp by mouth every 4 hours as needed for cough CHERATUSSIN AC 100-10 MG/5ML ORAL SYRUP 9 73609 GUAIFENESIN-CODEINE Inactive GUAIFENESIN DM 400-20 MG ORAL [...] tid K EFLEX 500 MG ORAL CAPSULE 212150 CEPHALEXIN Inactive DIFLUCAN 100 MG ORAL TABLET 1 tablet by mouth daily, R EPEAT 2ND DOSE IN 7 DAYS IF STILL SYMPTOMATIC DIFLUCAN 100 MG ORAL TABLET 94282 8 FLUCONAZOLE Inactive PROTONIX 40 MG ORAL TABLET DELAYED RELEASE 1 pill by m outh daily, for acid reflux PROTONIX 40 MG ORAL TABLET DELAYED RELEAS E 769753 PANTOPRAZOLE SODIUM Inactive ALPRAZOLAM 0.25 MG ORAL TABLET 1 tablet by mouth twice a day as needed for stress/anxiety ALPRAZOLAM 0.25 MG ORAL TABLET 737223 ALPRAZOLAM Inactive ESCITALOPRAM OXALATE 10 MG ORAL TABLET take 1 tab po qhs for mod ESCITALOPRAM OXALATE 10 MG ORAL TABLET 934635 ESCITALOP JO OXALATE Inactive AMOXICILLIN 500 MG ORAL TABLET take 1 tab po TID 08/05 AMOXICILLIN 500 MG ORAL TABLET 582293 AMOXICILLIN Inactive AMOXICILLIN 500 MG ORAL CAPSULE 1 tab by mouth 3 times daily 201 11/24/09 AMOXICILLIN 500 MG ORAL CAPSULE 451215 AMOXICILLIN Inactive ZITHROMAX 250 MG ORAL TABLET 2 po today, then 1 po q days 2-5 20 09/23/25 ZITHROMAX 250 MG ORAL TABLET 106280 AZITHROMYCIN [place] ctive ZITHROMAX 250 MG ORAL TABLET 2 po today, then 1 po q days 2-5 20 10/03/08 ZITHROMAX 250 MG ORAL TABLET 440056 AZITHROMYCIN [place] ctive AZITHROMYCIN 500 MG ORAL TABLET 1 PO q day x 6 days 20 03/02/23 AZITHROMYCIN 500 MG ORAL TABLET 131856 AZITHROMYCIN Inactive BACTRIM 400-80 MG ORAL TABLET take one po BID BACTRIM 400- 80 MG ORAL TABLET 016340 SULFAMETHOXAZOLE-TRIMETHOPRIM Inactive AZITHROMYCIN 250 MG ORAL TABLET 2 po qd x 1 day, then 1 po q d x 4 days AZITHROMYCIN 250 MG ORAL TABLET 539521 AZITHROMY ALLISON Inactive PREDNISONE 20 MG ORAL TABLET 2 tabs daily for 3 days, 1 tab daily for 3 days, 1/2 tab daily for 2 days PREDNISONE 20 MG ORAL T ABLET 915939 PREDNISONE Inactive ZITHROMAX 250 MG ORAL TABLET 2 po today, then 1 po q days 2-5 20 06/08/16 ZITHROMAX 250 MG ORAL TABLET 696155 AZITHROMYCIN [place] ctive FLAGYL 500 MG ORAL TABLET 1 tablet by mouth two times daily 2014 FLAGYL 500 MG ORAL TABLET 127807 METRONIDAZOLE Inacti ve AUGMENTIN 875-125 MG ORAL TABLET 1 tab by mouth twice daily with food AUGMENTIN 875-125 MG ORAL TABLET AMOXICIL ELSA-POT CLAVULANATE Inactive NAPROXEN 500 MG ORAL TABLET one tab PO BID NAPROXEN 500 MG ORAL TABLET 700981 NAPROXEN Inactive PREDNISONE 20 MG ORAL TABLET 2 tabs daily for 3 days, 1 tab daily for 3 days, 1/2 tab daily for 2 days PREDNISONE 20 MG ORAL T ABLET 939167 PREDNISONE Inactive AZITHROMYCIN 250 MG ORAL TABLET 2 po qd x 1 day, then 1 po q d x 4 days AZITHROMYCIN 250 MG ORAL TABLET 096694 AZITHROMY ALLISON Inactive PREDNISONE 20 MG ORAL TABLET 2 tabs daily for 3 days, 1 tab daily for 3 days, 1/2 tab daily for 2 days PREDNISONE 20 MG ORAL T ABLET 642790 PREDNISONE Inactive ZITHROMAX Z-EMIL 250 MG ORAL TABLET 2 today, then 1 daily for 4 d ays ZITHROMAX Z-EMIL 250 MG ORAL TABLET 938104 AZITHROMYCIN Inactive CEFDINIR 300 MG ORAL CAPSULE [...] days PREDNISONE 20 MG ORAL T ABLET 371759 PREDNISONE Inactive BACTRIM DS 800-160 MG ORAL TABLET 1 tab by mouth twice daily 201 05/02/30 BACTRIM DS 800-160 MG ORAL TABLET 864672 TRIMETHOPRIM-SULFAMETHOXAZOLE Inactive ZITHROMAX Z-EMIL 250 MG ORAL TABLET 2 today, then 1 daily for 4 d ays ZITHROMAX Z-EMIL 250 MG ORAL TABLET 865415 AZITHROMYCIN Inactive TAMIFLU 75 MG ORAL CAPSULE 1 po BID x 5 days 0 TAMIFLU 75 MG ORAL CAPSULE 696165 OSELTAMIVIR PHOSPHATE Inactive CEFDINIR 300 MG ORAL CAPSULE 1 po BID x 10 days 01/03 CEFDINIR 300 MG ORAL CAPSULE 547399 CEFDINIR Inactive ZITHROMAX Z-EMIL 250 MG TABS Take two tablets today and then 1 tablet daily for 4 days ZITHROMAX Z-EMIL 250 MG TABS 614270 AZITHROM YCIN Inactive AMOXICILLIN 875 MG ORAL TABLET 1 tab by mouth twice daily AMOXICILLIN 875 MG ORAL TABLET 040152 AMOXICILLIN Inactive Advance Directives Directive Description Start Date [...] Description blood pressure, diastolic, repeated by physician 71 [...] 11 .0-15.0 platelet count 280 THOUSAND/UL 10*3/mm3 582-939 8099/02/18 mean platelet volume 11.6 fL 7.5-12.5 Lab [...] 11 .6-14.8 platelet count 245 10^3/MM^3 10*3/mm3 861-103 6624/09/27 leukocyte count, blood 7.6 10^3/MM^3 10*3/mm3 4.6-10.2 [...] (L) - Chemistry sodium, serum 138 mmol/L 322-668 6053/04/11 carbon dioxide, venous blood 27.1 mmol/L 21.0-32 [...] mg/dL Encounters Code Encounter Date Provider Facility CPT-83076 Level 4 Est. Patient 16:18:17 CABIN SERVICE AGENT Myrna maldonado MD [facility] CPT-86982 Level 4 Est. Patient 16:39:44 CABIN SERVICE AGENT Jose Zhong MD [facility]-51165 [id number] Vst-Est Level IV 13:45:38 [facility] [id number] Vst-Est Level III 09:41:31 CDT Arie Casper MD [facility]-35858 54774-Cai Vst-Est Level III 18:20:11 CDT Me lobito Russ [facility]-56193 [id number] Vst-Est Level III 17:21:41 CDT Me lobito Russ [facility] CPT-91039 [id number] Vst-Est Level IV 13:30:22 C DT Arie Casper MD [facility] CPT-07678 Level 4 Est. Patient 13:05:26 CDT Myrna maldonado MD [facility] CPT-90736 [id number] Vst-Est Level IV 20:50:21 C DT Arie Casper MD [facility] CPT-22159 Level 3 Est. Patient 11:49:34 CABIN SERVICE AGENT Jessica boyd [facility] CPT-41408 Level 3 Est. Patient 14:55:50 CABIN SERVICE AGENT Jose Zhong MD [facility] CPT-54135 Level 3 Est. Patient 10:21:41 CABIN SERVICE AGENT Arie mcqueen MD [facility] CPT-71019 Level 3 Est. Patient 11:35:15 CABIN SERVICE AGENT Arie mcqueen MD [facility] CPT-31967 Level 3 Est. Patient 15:40:28 CDT Brii escalante [facility] CPT-96634 Level 3 Est. Patient 16:40:36 CDT Arie mcqueen MD [facility] CPT-25085 Level 4 Est. Patient 15:29:22 CABIN SERVICE AGENT Arie mcqueen MD [facility] CPT-35413 Level 3 Est. Patient 15:18:16 CABIN SERVICE AGENT Jono black [facility] CPT-88826 Level 4 Est. Patient 12:08:40 CABIN SERVICE AGENT Brii Are ll [facility] CPT-50522 Level 3 Est. Patient 09:24:42 CDT Brii Are ll [facility] CPT-26344 Level 3 Est. Patient 09:12:56 CDT Arie mcqueen MD [facility] CPT-39175 Level 3 Est. Patient 16:40:54 CDT Jose Zhong MD [facility] CPT-36934 Level 2 Est. Patient 13:01:13 CDT Brii Are [facility] CPT-24890 Level 3 Est. Patient 11:55:30 CABIN SERVICE AGENT Jono black [facility] CPT-92227 Level 3 Est. Patient 09:52:36 [employer] SERVICE [employer]ENT Brii Are ll [facility] CPT-53449 Level 3 Est. Patient 16:25:33 [employer] SERVICE [employer]ENT Rich Rosales MD [facility] CPT-07294 Level 3 Est. Patient 20:33:55 CDT Arie mcqueen MD [facility] CPT-74215 Level 3 Est. Patient 14:18:20 CDT Rich Rosales MD [facility] CPT-05487 Level 4 Est. Patient 09:34:31 CDT Arie mcqueen MD [facility] CPT-99616 Level 3 Est. Patient 09:08:55 [employer] Liliana vincent MD PhD [facility] CPT-23456 Level 3 Est. Patient 16:44:07 [employer] SERVICE [employer]ENT Arie mcqueen MD [facility] CPT-37905 Level 3 Est. Patient 10:44:27 CDT Arie mcqueen MD [facility] CPT-94654 Level 3 Est. Patient 08:55:41 CDT Jose Zhong MD [facility] CPT-87564 Level 3 Est. Patient 18:37:31 CDT Liliana vincent MD PhD [facility] CPT-54493 Level 3 Est. Patient 14:28:23 CDT Abelardo HERNANDEZ [facility] CPT-20300 Level 3 Est. Patient 15:18:13 [employer] SERVICE [employer] Arie mcqueen MD [facility] CPT-64998 Level 3 Est. Patient 10:11:29 [employer] SERVICE [employer]ENT Arie mcqueen MD [facility] CPT-44770 Level 3 Est. Patient 10:55:57 [employer] SERVICE [employer]ENT Jono black DO [facility] CPT-81289 Level 3 Est. Patient 17:29:05 CDT Arie mcqueen MD [facility] Procedures Code Procedure Name Date Entry Date Standard Desc ription CPT-EVST Evisit 13:43:28 CDT CPT-89564 Sono OB transvag XRAY USE ONLY 17:12:53 CS T CPT-40328 Sono OB transvag XRAY USE ONLY 17:11:12 CS T CPT-53146 UHCG Urine - MARC ONLY 12:13:59 [employer]ICE [employer]ENT 12/11 CPT-81269 Spec Collection and Handling Fee 12:13:[address] CPT-63501 Visit 12:13:59 [employer] CPT-31776 First Vx - Ix admin via ID I M or jet injects without counseling by physician 13:00:15 [employer] SERVICE [employer]ENT CPT-98931 Flulaval Intramuscular Injectable 13:00:15 [employer] SERVICE [employer] CPT-52242 Urine Dip (Floor Use Only) 12:20:20 [employer]IN SERVICE [employer]ENT 201 06/03/24 CPT-22253 Sono Soft Tissue Head and Neck - XRAY US E ONLY 17:10:14 CDT CPT-53999 Ear Wash with irrigation 17:21:41 CDT 07/04 CPT-53244 Nexplanon Removal 15:40:28 CDT CPT-80332 Sono transvag pelvis non OB uterus ovari es cervix - XRAY USE ONLY 08:58:14 [employer] CPT-35451 UA w micro - LAB USE ONLY 16:04:56 [employer] SERVICE [employer]ENT 2015 CPT-89712 Wet Prep/GEN - LAB USE ONLY 16:04:56 [employer] SERVICE [employer]ENT 20 08/10/29 CPT-63828 First Vx - Ix admin via ID I M or jet injects without counseling by physician 16:57:10 CDT CPT-89281 Fluzone Preservative Free Intramuscular Suspension 16:57:10 CDT CPT-J0696 Rocephin 1000 mg (Ceftriaxone) 11:49:23 CDT CPT-J1040 Depo Medrol 80 mg (Methyl Prednisolone A cetate) 11:49:23 CDT CPT-J1100 Decadron 8mg (Dexamethasone) 11:49:23 CDT 2 CPT-51092 Abx/Therapy Injection 11:49:23 CDT CPT-13141 Abx/Therapy Injection 11:49:23 CDT CPT-81784 Abd compl w upright 09:07:26 [employer] CPT-06830 Ear Wash 16:12:47 [employer] SERVICE [employer]ENT CPT-OV Office Visit 11:12:01 CDT CPT-OV Office Visit 15:30:23 CDT CPT-29170 Sono pelvis non OB uterus ovaries cervix 15:50:44 CDT CPT-66119 Hand comp min 3V 16:42:32 CDT CPT-55547 Abd compl w upright 12:17:01 CDT CPT-12325 Nexplanon Placement 15:07:39 [employer] CPT-63868 Removal of IUD 15:07:39 [employer] SERVICE [employer] CPT-30752 TB Tubersol 12:09:32 CDT CPT-27476 TB Tubersol 13:55:43 CDT
--- OUTSIDE RECORDS SUMMARY | 2020-03-03 06:41 | XMS REPORT | Clinical Summary ---
Author Author Admin, Diamante Marcelo Organization [facility] Address Unknown Phone Unavailable Allergies, Adverse Reactions, Alerts Allergy Name Reaction Description Start Date Severity Status Pr ovider PERCOCET Itchy Rash Severe Active Oxana Mina cheema PURCHASING ADMINISTRATOR DILAUDID Severe Active Brii MARROQUIN RN Conditions or Problems Problem Name Problem Code Onset Date Status Entry Date Provider Comment Standard Description Annotate FH BREAST CANCER V16.3 Resolved oJse Zhong MD Family history of malignant neoplasm [...] quadrant Urinary frequency 788.41 Inactive Roseann Crawford [facility] Urinary frequency Urinary frequency 788.41 Resolved [...] Vaccination for Prophylaxis V04.81 Inactive Brii Russ SUPERINTENDENT PRESSURE Need for prophylactic vaccin ation and inoculation [...] of implantable subdermal contraceptiv e Inactive Jose Zhogn MD Vaginal bleeding ICD-623.8 Inactive Jose Mcwilliams [...] 5 days for bladder infection CIPROFLOXACIN HCL 61031694205 Active Arie Casper MD Active PYRIDOXINE HCL 25 MG ORAL TABLET one tab PO 3-4 times per day 12/11 PYRIDOXINE HCL 70108001974 Active Myrna Roberto MD Active UNISOM SLEEPTABS 25 MG ORAL TABLET one tab PO qhs DOXYLAMINE SUCCINATE (SLEEP) 45217873800 Active Myrna Roberto MD Active TYLENOL 325 MG ORAL CAPSULE PRN ACETAMINOPHEN 000 15161324 Active Brii Pacheco Active ESCITALOPRAM OXALATE 10 MG ORAL TABLET take 1 tab po qhs for mod ESCITALOPRAM OXALATE 29446536498 No Longer Active Brii Pacheco Active ALPRAZOLAM 0.25 MG ORAL TABLET 1 tablet by mouth twice a day as needed for stress/anxiety ALPRAZOLAM 39319679270 No Longer Active Brii Pacheco Active PROTONIX 40 MG ORAL TABLET DELAYED RELEASE 1 pill by m outh daily, for acid reflux PANTOPRAZOLE SODIUM 33542572384 No Longer Activ e Brii Pacheco Active DIFLUCAN 100 MG ORAL TABLET 1 tablet by mouth daily, R EPEAT 2ND DOSE IN 7 DAYS IF STILL SYMPTOMATIC FLUCONAZOLE 29196559209 No Long er Active Nilam Raida Active KEFLEX 500 MG ORAL CAPSULE 1 po tid CEPHALEXI N 85910138330 No Longer Active Tali Devi PA-C Active CONCEPT DHA 53.5-38-1 MG ORAL CAPSULE 1 tablet daily [id number] 3 59635522127 Active Oxana Souza LPN Active AMOXICILLIN 875 MG ORAL TABLET 1 tab by mouth twice daily 1 AMOXICILLIN 50967292654 No Longer Active Brii Russ APRN Active TUSSIONEX PENNKINETIC ER 10-8 MG/5ML ORAL SUSPENSION E XTENDED RELEASE 5ml po q12hr PRN Cough HYDROCOD POLST-CHLORPHEN POLST 5 7001841625 No Longer Active Myrna Roberto MD Active ZITHROMAX Z-EMIL 250 MG TABS Take two tablets today and then 1 tablet daily for 4 days AZITHROMYCIN 80814891915 No Longer Active Flaco Rosales MD Active GUAIFENESIN DM 400-20 MG ORAL TABLET 1 pill by mouth t wice daily, if needed for cough DEXTROMETHORPHAN-GUAIFENESIN 35450320677 No Longer Active Rich Rosales MD Active CEFDINIR 300 MG ORAL CAPSULE 1 po BID x 10 days CEFDINIR 32306942614 No Longer Active Jessica Heaton APRN Active CHERATUSSIN AC 100-10 MG/5ML ORAL SYRUP 1 tsp by mouth every 4 hours as needed for cough GUAIFENESIN-CODEINE 99752502620 No Longe r Active Jessica Heaton APRN Active TAMIFLU 75 MG ORAL CAPSULE 1 po BID x 5 days 0 OSELTAMIVIR PHOSPHATE 93997052522 No Longer Active Jose Zhong MD Activ e ZITHROMAX Z-EMIL 250 MG ORAL TABLET 2 today, then 1 daily for 4 d ays AZITHROMYCIN 61127759817 No Longer Active Arie Casper MD Active PROTONIX 40 MG ORAL TABLET DELAYED RELEASE 1 po q a.m. PANTOPRAZOLE SODIUM 64998289403 No Longer Active Arie Casper MD Active BACTRIM DS 800-160 MG ORAL TABLET 1 tab by mouth twice daily 201 05/02/30 TRIMETHOPRIM-SULFAMETHOXAZOLE 13202534789 No Longer Active R [facility] KELLIE Crawford Active NEXPLANON IMPLANT right arm subcutaneously ETONOGESTREL IMPL 12756410069 No Longer Active Brii Areboris SUPERINTENDENT PRESSURE Active TUSSIONEX PENNKINETIC ER 10-8 MG/5ML ORAL SUSPENSION E XTENDED RELEASE 5ml po q12hr PRN Cough HYDROCOD POLST-CHLORPHEN POLST 5 2685372123 No Longer Active Brii Areboris SUPERINTENDENT PRESSURE Active CETIRIZINE HCL 10 MG ORAL TABLET 1 po qd PRN Allergies CETIRIZINE HCL 61959395479 No Longer Active Brii Russ SUPERINTENDENT PRESSURE Activ e PREDNISONE 20 MG ORAL TABLET 2 tabs daily for 3 days, 1 tab daily for 3 days, 1/2 tab daily for 2 days PREDNISONE 11780843548 No Longer Active Arie Casper MD Active LOMOTIL 2.5-0.025 MG ORAL TABLET 1 tab po four times a day as needed for diarrhea DIPHENOXYLATE-ATROPINE 79559593185 No Lo nger Active Arie Casper MD Active ZOLOFT 50 MG ORAL TABLET 1 tablet by mouth daily 12/08 SERTRALINE HCL 27693118262 No Longer Active Arie Casper MD Ac tive NAPROXEN 500 MG ORAL TABLET Take 1 tab BID NAPR OXEN 29680837988 No Longer Active Arie Casper MD Active CEFDINIR 300 MG ORAL CAPSULE 1 po BID x 10 days CEFDINIR 84368009315 No Longer Active Brii Russ SUPERINTENDENT PRESSURE Active PREDNISONE 20 MG ORAL TABLET 1 tablet daily for airway inflammat ion PREDNISONE 15395573986 No Longer Active Briiarnaldo Russ SUPERINTENDENT PRESSURE A ctive CEFDINIR 300 MG ORAL CAPSULE 1 po BID x 10 days CEFDINIR 79820877689 No Longer Active Jono Gagnon DO Active FLONASE 50 MCG/ACT NASAL SUSPENSION 1 spray each nostr il twice daily for allergies and runny nose until gone FLUT ICASONE PROPIONATE 63800431678 No Longer Active Jono Gagnon DO Active ALPRAZOLAM 0.25 MG ORAL TABLET 1 tablet by mouth every 8 hours as needed for stress ALPRAZOLAM 06183026162 No Longer Active Jono Gagnon DO Active ZITHROMAX Z-EMIL 250 MG ORAL TABLET 2 today, then 1 daily for 4 d ays AZITHROMYCIN 60345366141 No Longer Active Arie Casper MD Active PREDNISONE 20 MG ORAL TABLET 2 tabs daily for 3 days, 1 tab daily for 3 days, 1/2 tab daily for 2 days PREDNISONE 78469822845 No Longer Active Brii Russ APRN Active PREDNISONE 20 MG ORAL TABLET 1 tablet twice daily for 2 days, then 1 tablet once daily for 2 days PREDNISONE 19549131301 No Longer Active Brii Russ APRN Active PROMETHAZINE HCL 12.5 MG ORAL TABLET 1 tablet by mouth every 6 hours as needed for nausea/vomiting PROMETHAZINE HCL 97717286707 No L onger Active Jono Gagnon DO Active CITRATE OF MAGNESIA ORAL SOLUTION 1 bottle today for constipatio n MAGNESIUM CITRATE 22665335456 No Longer Active Jono Gagnon DO Active ZOFRAN 4 MG ORAL TABLET 1 TAB PO Q 6 HRS PRN NAUSEA 07/10/15 ONDANSETRON HCL 95242881154 No Longer Active Brii Russ APRN Acti ve LOMOTIL 2.5-0.025 MG ORAL TABLET 1 to 2 four times a day as needed for diarrhea DIPHENOXYLATE-ATROPINE 32613544930 No Longer Active January Russ APRN Active AMOXICILLIN 500 MG ORAL TABLET 2 tabs twice a day for 10 days 20 07/09/11 AMOXICILLIN 37126040296 No Longer Active Brii Russ SUPERINTENDENT PRESSURE Active CYCLOBENZAPRINE HCL 10 MG ORAL TABLET 1/2 - 1 tablet b y mouth three times daily as needed for muscle spasm/pain CYCLOBENZAPRINE HCL 21888908394 No Longer Active Arie Casper MD Active LOMOTIL 2.5-0.025 MG ORAL TABLET 1 to 2 four times a day as needed for diarrhea DIPHENOXYLATE-ATROPINE 73984357417 No Longer Active Fozia Casper MD Active MACROBID 100 MG ORAL CAPSULE 1 cap by mouth twice daily NITROFURANTOIN MONOHYD MACRO 01083476525 No Longer Active Arie Casper MD Active ZYRTEC ALLERGY 10 MG ORAL CAPSULE 1 po qd CE TIRIZINE HCL 45026075943 No Longer Active Arie Casper MD Active AZITHROMYCIN 250 MG ORAL TABLET 2 po qd x 1 day, then 1 po q d x 4 days AZITHROMYCIN 73965168760 No Longer Active Waynellarlen murilloll SUPERINTENDENT PRESSURE Active PREDNISONE 20 MG ORAL TABLET 2 tabs daily for 3 days, 1 tab daily for 3 days, 1/2 tab daily for 2 days PREDNISONE 64068172071 No Longer Active Jillarlen Alcazarl SUPERINTENDENT PRESSURE Active PROMETHAZINE HCL 25 MG ORAL TABLET 1 four times a day as nee ded for vomiting PROMETHAZINE HCL 81623899483 No Longer Active Myrna Roberto MD Active BACTRIM DS 800-160 MG ORAL TABLET 1 twice a day 05/30 SULFAMETHOXAZOLE-TRIMETHOPRIM 21956080329 No Longer Active Myrna Roberto MD Active VICKS DAYQUIL SEVERE COLD/FLU TABLET 1 tab every 6 hours prn 201 02/22/17 [id number]-APAP TABS 22610347311 No Longer Active Chris Roberto MD Active GUAIFENESIN-CODEINE 100-10 MG/5ML ORAL SYRUP 2 tsp every 6 hours prn GUAIFENESIN-CODEINE 26670236575 No Longer Active Myrna Roberto MD Active NAPROXEN 500 MG ORAL TABLET one tab PO BID NAPR OXEN 31017147917 No Longer Active Myrna Roberto MD Active AUGMENTIN 875-125 MG ORAL TABLET 1 tab by mouth twice daily with food AMOXICILLIN-POT CLAVULANATE 70804392836 No Longer Act zaid Liliana Estrada MD PhD Active AMOXICILLIN 500 MG ORAL CAPSULE 1 tab by mouth 3 times daily 201 02/21/05 AMOXICILLIN 11704970181 No Longer Active Liliana Estrada MD PhD Active TESSALON PERLES 100 MG ORAL CAPSULE 1 tablet by mouth 3 times da cory BENZONATATE 88165280308 No Longer Active Liliana Estrada MD PhD Active FLAGYL 500 MG ORAL TABLET 1 tablet by mouth two times daily 2014 METRONIDAZOLE 87419659809 No Longer Active Nilam Plattida Ac tive ZITHROMAX 250 MG ORAL TABLET 2 po today, then 1 po q days 2-5 20 06/08/16 AZITHROMYCIN 27141528570 No Longer Active Arie Casper MD Active VITAMINS 0.8 MG ORAL TABLET take 1 tab po qday [id number] 57492149841 No Longer Active Arie Casper MD Active IBUPROFEN 800 MG ORAL TABLET take one po Q 8 hours 201 02/01/16 IBUPROFEN 82076754511 No Longer Active Arie Casper MD Acti ve [facility] TUSSIN COUGH/COLD CF 5-10-100 MG/5ML ORAL LIQUID 2 teasp oons every 4 hours [id number] 35743433299 No Longer Active Blaine Casper MD Active COMTREX COLD/COUGH DAY/NITE MS 5-2-10-325 MG ORAL 2 caps deja ry 4 hours [id number] 80315276830 No Longer Active Landon Casper MD Active CHLORASEPTIC MAX SORE THROAT 15-10 MG MOUTH/THROAT LOZENGE 1 every 2 hours prn BENZOCAINE-MENTHOL 25205448036 No Longer Active Arie Casper MD Active PREDNISONE 20 MG ORAL TABLET 2 tabs daily for 3 days, 1 tab daily for 3 days, 1/2 tab daily for 2 days PREDNISONE 91541842690 No Longer Active Jose Zhong MD Active AZITHROMYCIN 250 MG ORAL TABLET 2 po qd x 1 day, then 1 po q d x 4 days AZITHROMYCIN 15510150666 No Longer Active Jose Mcwilliams MD Active ZOFRAN ODT 4 MG ORAL TABLET DISINTEGRATING 1 po q6hr PRN Nausea ONDANSETRON 06314708589 No Longer Active Rich Rosales MD Active ZOFRAN 4 MG ORAL TABLET 1 tablet every 4 hours ONDANSETRON HCL 02436569896 No Longer Active Rich Rosales MD Activ e MUCINEX 600 MG ORAL TABLET EXTENDED RELEASE 12 HOUR Ta ke 1-2 tablets every 12 hours GUAIFENESIN 48071265332 No Longer Active Rich Rosales MD Active BACTRIM 400-80 MG ORAL TABLET take one po BID SULFAMETHOXAZOLE-TRIMETHOPRIM 42234618717 No Longer Active Abelardo HERNANDEZ Active AZITHROMYCIN 500 MG ORAL TABLET 1 PO q day x 6 days 20 03/02/23 AZITHROMYCIN 61268117268 No Longer Active Tin HERNANDEZ Activ e ZITHROMAX 250 MG ORAL TABLET 2 po today, then 1 po q days 2-5 20 10/03/08 AZITHROMYCIN 67227454636 No Longer Active Arie Casper MD Active ZITHROMAX 250 MG ORAL TABLET 2 po today, then 1 po q days 2-5 20 09/23/25 AZITHROMYCIN 79233771204 No Longer Active Arie Casper MD Active AMOXICILLIN 500 MG ORAL CAPSULE 1 tab by mouth 3 times daily 201 11/24/09 AMOXICILLIN 00438321631 No Longer Active Arie Casper MD Active BACTRIM DS 800-160 MG ORAL TABLET 1 tab by mouth twice daily 201 11/03/14 TRIMETHOPRIM-SULFAMETHOXAZOLE 98715173172 No Longer Active Fozia Casper MD Active AMOXICILLIN 500 MG ORAL TABLET take 1 tab po TID 08/05 AMOXICILLIN 29313018381 No Longer Active Arie Casper MD Acti ve BACTRIM DS 800-160 MG ORAL TABLET 1 tab by mouth twice daily 201 11/03/14 BACTRIM DS 800-160 MG ORAL TABLET 678614 TRIMETHOPRIM-SULFAMETHOXAZOLE Inactive MUCINEX 600 MG ORAL TABLET EXTENDED RELEASE 12 HOUR Ta ke 1-2 tablets every 12 hours MUCINEX 600 MG ORAL TABLET EXTENDED RELEA SE 12 HOUR GUAIFENESIN Inactive ZOFRAN 4 MG ORAL TABLET 1 tablet every 4 hours ZOFRAN 4 MG ORAL TABLET 136321 ONDANSETRON HCL Inactive ZOFRAN ODT 4 MG [...] COLD/COUGH DAY/NITE MS 5-2-10-325 MG ORA L [id number] Inactive [facility] TUSSIN COUGH/COLD CF 5-10-100 MG/5ML ORAL LIQUID 2 teasp oons every 4 hours [facility] TUSSIN COUGH/COLD CF 5-10-100 MG/5ML ORAL LI QUID [id number] Inactive IBUPROFEN 800 MG ORAL TABLET take one po Q 8 hours 201 02/01/16 IBUPROFEN 800 MG ORAL TABLET 877089 IBUPROFEN Inactive VITAMINS 0.8 MG ORAL TABLET take 1 tab po qday VITAMINS 0.8 MG ORAL TABLET [id number]-FA Inactive TESSALON PERLES 100 MG ORAL CAPSULE 1 tablet by mouth 3 times da cory TESSALON PERLES 100 MG ORAL CAPSULE 236261 BENZONATATE Inactive AMOXICILLIN 500 MG ORAL CAPSULE 1 tab by mouth 3 times daily 201 02/21/05 AMOXICILLIN 500 MG ORAL CAPSULE 930223 AMOXICILLIN Inactive GUAIFENESIN-CODEINE 100-10 MG/5ML ORAL SYRUP 2 tsp every 6 hours prn GUAIFENESIN-CODEINE 100-10 MG/5ML ORAL SYRUP 206737 GUAIFENESIN-CODEINE Inactive VICKS DAYQUIL SEVERE COLD/FLU TABLET 1 tab every 6 hours prn 201 02/22/17 VICKS DAYQUIL SEVERE COLD/FLU TABLET PHENYLEPHRI AL-XO-HP-APAP TABS Inactive BACTRIM DS 800-160 MG ORAL TABLET 1 twice a day 05/30 BACTRIM DS 800-160 MG ORAL TABLET 273698 SULFAMETHOXAZOLE-TRIMETHOPRIM Inactiv e PROMETHAZINE HCL 25 MG ORAL TABLET 1 four times a day as nee ded for vomiting PROMETHAZINE HCL 25 MG ORAL TABLET 781770 PROMETHAZINE HCL Inactive ZYRTEC ALLERGY 10 MG ORAL CAPSULE 1 po qd ZYRTEC ALLERGY 10 MG ORAL CAPSULE CETIRIZINE HCL Inactive MACROBID 100 MG ORAL CAPSULE 1 cap by mouth twice daily MACROBID 100 MG ORAL CAPSULE 3912282 NITROFURANTOIN MONOHYD MACRO In active LOMOTIL 2.5-0.025 MG ORAL TABLET 1 to 2 four times a day as needed for diarrhea LOMOTIL 2.5-0.025 MG ORAL TABLET 5261027 DIPHENOXYLATE-ATROPINE Inactive CYCLOBENZAPRINE HCL 10 MG ORAL TABLET 1/2 - 1 tablet b y mouth three times daily as needed for muscle spasm/pain CYCLOBEN ZAPRINE HCL 10 MG ORAL TABLET 783416 CYCLOBENZAPRINE HCL Inactive AMOXICILLIN 500 MG ORAL TABLET 2 tabs twice a day for 10 days 20 07/09/11 AMOXICILLIN 500 MG ORAL TABLET 060034 AMOXICILLIN I nactive LOMOTIL 2.5-0.025 MG ORAL TABLET 1 to 2 four times a day as needed for diarrhea LOMOTIL 2.5-0.025 MG ORAL TABLET 8377142 DIPHENOXYLATE-ATROPINE Inactive ZOFRAN 4 MG ORAL TABLET 1 TAB PO Q 6 HRS PRN NAUSEA 20 07/10/15 ZOFRAN 4 MG ORAL TABLET 672176 ONDANSETRON HCL Inactive CITRATE OF MAGNESIA ORAL SOLUTION 1 bottle today for constipatio n CITRATE OF MAGNESIA ORAL SOLUTION 5113001 MAGNESIUM CITR ATE Inactive PROMETHAZINE HCL 12.5 MG ORAL TABLET 1 tablet by mouth every 6 hours as needed for nausea/vomiting PROMETHAZINE HCL 12.5 MG ORA L TABLET 016376 PROMETHAZINE HCL Inactive PREDNISONE 20 MG ORAL TABLET 1 tablet twice daily for 2 days, then 1 tablet once daily for 2 days PREDNISONE 20 MG ORAL TABLET 250295 PREDNISONE Inactive ALPRAZOLAM 0.25 MG ORAL TABLET 1 tablet by mouth every 8 hours as needed for stress ALPRAZOLAM 0.25 MG ORAL TABLET 214164 ALPRA ZOLAM Inactive FLONASE 50 MCG/ACT NASAL SUSPENSION 1 spray each nostr il twice daily for allergies and runny nose until gone FLON ASE 50 MCG/ACT NASAL SUSPENSION FLUTICASONE PROPIONATE Inactive PREDNISONE 20 MG ORAL TABLET 1 tablet daily for airway inflammat ion PREDNISONE 20 MG ORAL TABLET 961573 PREDNISONE [place] ctive NAPROXEN 500 MG ORAL TABLET Take 1 tab BID NAPROXEN 500 MG ORAL TABLET 459232 NAPROXEN Inactive ZOLOFT 50 MG ORAL TABLET 1 tablet by mouth daily 12/08 ZOLOFT 50 MG ORAL TABLET 583999 SERTRALINE HCL Inactive LOMOTIL 2.5-0.025 MG ORAL TABLET 1 tab po four times a day as needed for diarrhea LOMOTIL 2.5-0.025 MG ORAL TABLET 4429095 DIPHENOXYLATE-ATROPINE Inactive CETIRIZINE HCL 10 MG ORAL TABLET 1 po qd PRN Allergies CETIRIZINE HCL 10 MG ORAL TABLET 0873366 CETIRIZINE HCL Inactiv e TUSSIONEX PENNKINETIC ER 10-8 MG/5ML ORAL SUSPENSION E XTENDED RELEASE 5ml po q12hr PRN Cough TUSSIONEX PENNKINETI C ER 10-8 MG/5ML ORAL SUSPENSION EXTENDED RELEASE HYDROCOD POLST-CHLORPHEN POLST I nactive NEXPLANON IMPLANT right arm subcutaneously NEXPLANON IMPLANT ETONOGESTREL IMPL Inactive PROTONIX 40 MG ORAL TABLET DELAYED RELEASE 1 po q a.m. PROTONIX 40 MG ORAL TABLET DELAYED RELEASE 505266 PANTOPRAZOLE SODI UM Inactive CHERATUSSIN AC 100-10 MG/5ML ORAL SYRUP 1 tsp by mouth every 4 hours as needed for cough CHERATUSSIN AC 100-10 MG/5ML ORAL SYRUP 9 10523 GUAIFENESIN-CODEINE Inactive GUAIFENESIN DM 400-20 MG ORAL [...] tid K EFLEX 500 MG ORAL CAPSULE 603618 CEPHALEXIN Inactive DIFLUCAN 100 MG ORAL TABLET 1 tablet by mouth daily, R EPEAT 2ND DOSE IN 7 DAYS IF STILL SYMPTOMATIC DIFLUCAN 100 MG ORAL TABLET 57419 8 FLUCONAZOLE Inactive PROTONIX 40 MG ORAL TABLET DELAYED RELEASE 1 pill by m outh daily, for acid reflux PROTONIX 40 MG ORAL TABLET DELAYED RELEAS E 243072 PANTOPRAZOLE SODIUM Inactive ALPRAZOLAM 0.25 MG ORAL TABLET 1 tablet by mouth twice a day as needed for stress/anxiety ALPRAZOLAM 0.25 MG ORAL TABLET 323354 ALPRAZOLAM Inactive ESCITALOPRAM OXALATE 10 MG ORAL TABLET take 1 tab po qhs for mod ESCITALOPRAM OXALATE 10 MG ORAL TABLET 770597 ESCITALOP JO OXALATE Inactive AMOXICILLIN 500 MG ORAL TABLET take 1 tab po TID 08/05 AMOXICILLIN 500 MG ORAL TABLET 787791 AMOXICILLIN Inactive AMOXICILLIN 500 MG ORAL CAPSULE 1 tab by mouth 3 times daily 201 11/24/09 AMOXICILLIN 500 MG ORAL CAPSULE 374006 AMOXICILLIN Inactive ZITHROMAX 250 MG ORAL TABLET 2 po today, then 1 po q days 2-5 20 09/23/25 ZITHROMAX 250 MG ORAL TABLET 365272 AZITHROMYCIN Arlen ctive ZITHROMAX 250 MG ORAL TABLET 2 po today, then 1 po q days 2-5 20 10/03/08 ZITHROMAX 250 MG ORAL TABLET 363256 AZITHROMYCIN Arlen ctive AZITHROMYCIN 500 MG ORAL TABLET 1 PO q day x 6 days 20 03/02/23 AZITHROMYCIN 500 MG ORAL TABLET 170783 AZITHROMYCIN Inactive BACTRIM 400-80 MG ORAL TABLET take one po BID BACTRIM 400- 80 MG ORAL TABLET 721457 SULFAMETHOXAZOLE-TRIMETHOPRIM Inactive AZITHROMYCIN 250 MG ORAL TABLET 2 po qd x 1 day, then 1 po q d x 4 days AZITHROMYCIN 250 MG ORAL TABLET 158665 AZITHROMY ALLISON Inactive PREDNISONE 20 MG ORAL TABLET 2 tabs daily for 3 days, 1 tab daily for 3 days, 1/2 tab daily for 2 days PREDNISONE 20 MG ORAL T ABLET 154679 PREDNISONE Inactive ZITHROMAX 250 MG ORAL TABLET 2 po today, then 1 po q days 2-5 20 06/08/16 ZITHROMAX 250 MG ORAL TABLET 137092 AZITHROMYCIN Arlen ctive FLAGYL 500 MG ORAL TABLET 1 tablet by mouth two times daily 2014 FLAGYL 500 MG ORAL TABLET 681195 METRONIDAZOLE Inacti ve AUGMENTIN 875-125 MG ORAL TABLET 1 tab by mouth twice daily with food AUGMENTIN 875-125 MG ORAL TABLET AMOXICIL ELSA-POT CLAVULANATE Inactive NAPROXEN 500 MG ORAL TABLET one tab PO BID NAPROXEN 500 MG ORAL TABLET 292198 NAPROXEN Inactive PREDNISONE 20 MG ORAL TABLET 2 tabs daily for 3 days, 1 tab daily for 3 days, 1/2 tab daily for 2 days PREDNISONE 20 MG ORAL T ABLET 186664 PREDNISONE Inactive AZITHROMYCIN 250 MG ORAL TABLET 2 po qd x 1 day, then 1 po q d x 4 days AZITHROMYCIN 250 MG ORAL TABLET 373202 AZITHROMY ALLISON Inactive PREDNISONE 20 MG ORAL TABLET 2 tabs daily for 3 days, 1 tab daily for 3 days, 1/2 tab daily for 2 days PREDNISONE 20 MG ORAL T ABLET 207657 PREDNISONE Inactive ZITHROMAX Z-EMIL 250 MG ORAL TABLET 2 today, then 1 daily for 4 d ays ZITHROMAX Z-EMIL 250 MG ORAL TABLET 632581 AZITHROMYCIN Inactive CEFDINIR 300 MG ORAL CAPSULE 1 po BID x 10 days 12/18 CEFDINIR 300 MG ORAL CAPSULE 20030127 CEFDINIR Inactive CEFDINIR 300 MG ORAL CAPSULE 1 po BID x 10 days CEFDINIR 300 MG ORAL CAPSULE 966089 CEFDINIR Inactive PREDNISONE 20 MG ORAL TABLET 2 tabs daily for 3 days, 1 tab daily for 3 days, 1/2 tab daily for 2 days PREDNISONE 20 MG ORAL T ABLET 128444 PREDNISONE Inactive BACTRIM DS 800-160 MG ORAL TABLET 1 tab by mouth twice daily 201 05/02/30 BACTRIM DS 800-160 MG ORAL TABLET 620193 TRIMETHOPRIM-SULFAMETHOXAZOLE Inactive ZITHROMAX Z-EMIL 250 MG ORAL TABLET 2 today, then 1 daily for 4 d ays ZITHROMAX Z-EMIL 250 MG ORAL TABLET 486240 AZITHROMYCIN Inactive TAMIFLU 75 MG ORAL CAPSULE 1 po BID x 5 days 0 TAMIFLU 75 MG ORAL CAPSULE 610725 OSELTAMIVIR PHOSPHATE Inactive CEFDINIR 300 MG ORAL CAPSULE 1 po BID x 10 days 01/03 CEFDINIR 300 MG ORAL CAPSULE 030494 CEFDINIR Inactive ZITHROMAX Z-EMIL 250 MG TABS Take two tablets today and then 1 tablet daily for 4 days ZITHROMAX Z-EMIL 250 MG TABS 497884 AZITHROM YCIN Inactive AMOXICILLIN 875 MG ORAL TABLET 1 tab by mouth twice daily AMOXICILLIN 875 MG ORAL TABLET 034437 AMOXICILLIN Inactive Advance Directives Directive Description Start [...] 11 .0-15.0 platelet count 280 THOUSAND/UL 10*3/mm3 583-500 1049/02/18 mean platelet volume 11.6 fL 7.5-12.5 Lab [...] 11 .6-14.8 platelet count 245 10^3/MM^3 10*3/mm3 764-352 8576/09/27 leukocyte count, blood 7.6 10^3/MM^3 10*3/mm3 4.6-10.2 [...] (L) - Chemistry sodium, serum 138 mmol/L 847-765 8540/04/11 carbon dioxide, venous blood 27.1 mmol/L 21.0-32 [...] mg/dL Encounters Code Encounter Date Provider Facility CPT-03363 Level 4 Est. Patient 16:18:17 WATER PURIFICATION CHEMIST Myrna maldonado MD [facility] CPT-38131 Level 4 Est. Patient 16:39:44 WATER PURIFICATION CHEMIST Jose Zhong MD [facility] CPT-97379 [id number] Vst-Est Level IV 13:45:38 C Talikiya Devi PA-C [facility] CPT-45482 [id number] Vst-Est Level III 09:41:31 CDT Arie Casper MD [facility]-80488 [id number] Vst-Est Level III 18:20:11 CDT Me lobito Russ [facility]-25464 [id number] Vst-Est Level III 17:21:41 CDT Me lobito Russ [facility] [place]-72335 [id number] Vst-Est Level IV 13:30:22 C DT Arie Casper MD [facility] CPT-74931 Level 4 Est. Patient 13:05:26 CDT Myrna maldonado MD [facility]-25392 [id number] Vst-Est Level IV 20:50:21 C DT Arie Casper MD [facility] CPT-15835 Level 3 Est. Patient 11:49:34 WATER PURIFICATION CHEMIST Jessica boyd [facility] CPT-60405 Level 3 Est. Patient 14:55:50 WATER PURIFICATION CHEMIST Jose Zhong MD [facility] CPT-39021 Level 3 Est. Patient 10:21:41 WATER PURIFICATION CHEMIST Arie mcqueen MD [facility] CPT-78551 Level 3 Est. Patient 11:35:15 WATER PURIFICATION CHEMIST Arie mcqueen MD [facility] CPT-25396 Level 3 Est. Patient 15:40:28 CDT Brii escalante [facility] CPT-96452 Level 3 Est. Patient 16:40:36 CDT Aire mcqueen MD [facility] CPT-68395 Level 4 Est. Patient 15:29:22 WATER PURIFICATION CHEMIST Arie mcqueen MD [facility]-34150 Level 3 Est. Patient 15:18:16 WATER PURIFICATION CHEMIST Jono black [facility] CPT-10105 Level 4 Est. Patient 12:08:40 WATER PURIFICATION CHEMIST Brii Are ll [facility] CPT-26719 Level 3 Est. Patient 09:24:42 CDT Brii Are ll [facility] CPT-85959 Level 3 Est. Patient 09:12:56 CDT Arie mcqueen MD [facility]-69595 Level 3 Est. Patient 16:40:54 CDT Jose Zhong MD [facility] CPT-62072 Level 2 Est. Patient 13:01:13 CDT Brii Are ll [facility] CPT-67990 Level 3 Est. Patient 11:55:30 WATER PURIFICATION CHEMIST Jono black [facility] CPT-61805 Level 3 Est. Patient 09:52:36 WATER PURIFICATION CHEMIST Brii Are ll [facility] CPT-10946 Level 3 Est. Patient 16:25:33 WATER PURIFICATION CHEMIST Rich Rosales MD [facility] CPT-77360 Level 3 Est. Patient 20:33:55 CDT Arie mcqueen MD [facility] CPT-59729 Level 3 Est. Patient 14:18:20 CDT Rich Rosales MD [facility] CPT-17177 Level 4 Est. Patient 09:34:31 CDT Arie mcqueen MD [facility]-11582 Level 3 Est. Patient 09:08:55 WATER PURIFICATION CHEMIST Liliana vincent MD, PhD [facility]-64197 Level 3 Est. Patient 16:44:07 WATER PURIFICATION CHEMIST Arie mcqueen MD [facility] CPT-85326 Level 3 Est. Patient 10:44:27 CDT Arie mcqueen MD [facility] CPT-62858 Level 3 Est. Patient 08:55:41 CDT Jose Zhong MD [facility] CPT-14669 Level 3 Est. Patient 18:37:31 CDT Liliana vincent MD PhD [facility] CPT-89468 Level 3 Est. Patient 14:28:23 CDT Abelardo marroquin PA [facility] CPT-08158 Level 3 Est. Patient 15:18:13 WATER PURIFICATION CHEMIST Arie mcqueen MD [facility] CPT-75457 Level 3 Est. Patient 10:11:29 WATER PURIFICATION CHEMIST Arie mcqueen MD [facility] CPT-51088 Level 3 Est. Patient 10:55:57 WATER PURIFICATION CHEMIST Jono black DO [facility] CPT-41945 Level 3 Est. Patient 17:29:05 CDT Arie mcqueen MD [facility] Procedures Code Procedure Name Date Entry Date Standard Desc ription CPT-EVST Evisit 13:43:28 CDT CPT-20655 Sono OB transvag XRAY USE ONLY 17:12:53 CS T CPT-85382 Sono OB transvag XRAY USE ONLY 17:11:12 CS T CPT-75636 UHCG Urine - MARC ONLY 12:13:59 WATER PURIFICATION CHEMIST 12/11 CPT-38032 Spec Collection and Handling Fee 12:13:[address] CPT-86531 Visit 12:13:59 WATER PURIFICATION CHEMIST CPT-61575 First Vx - Ix admin via ID I M or jet injects without counseling by physician 13:00:15 WATER PURIFICATION CHEMIST CPT-44430 Flulaval Intramuscular Injectable 13:00:15 WATER PURIFICATION CHEMIST CPT-68554 Urine Dip (Floor Use Only) 12:20:20 WATER PURIFICATION CHEMIST 201 06/03/24 CPT-92506 Sono Soft Tissue Head and Neck - XRAY US E ONLY 17:10:14 CDT CPT-91607 Ear Wash with irrigation 17:21:41 CDT 07/04 CPT-47023 Nexplanon Removal 15:40:28 CDT CPT-91990 Sono transvag pelvis non OB uterus ovari es cervix - XRAY USE ONLY 08:58:14 WATER PURIFICATION CHEMIST CPT-54578 UA w micro - LAB USE ONLY 16:04:56 WATER PURIFICATION CHEMIST 2015 CPT-39846 Wet Prep/GEN - LAB USE ONLY 16:04:56 WATER PURIFICATION CHEMIST 20 08/10/29 CPT-19848 First Vx - Ix admin via ID I M or jet injects without counseling by physician 16:57:10 CDT CPT-32178 Fluzone Preservative Free Intramuscular Suspension 16:57:10 CDT CPT-J0696 Rocephin 1000 mg (Ceftriaxone) 11:49:23 CDT CPT-J1040 Depo Medrol 80 mg (Methyl Prednisolone A cetate) 11:49:23 CDT CPT-J1100 Decadron 8mg (Dexamethasone) 11:49:23 CDT 2 CPT-77920 Abx/Therapy Injection 11:49:23 CDT CPT-92120 Abx/Therapy Injection 11:49:23 CDT CPT-93347 Abd compl w upright 09:07:26 WATER PURIFICATION CHEMIST CPT-58458 Ear Wash 16:12:47 WATER PURIFICATION CHEMIST CPT-OV Office Visit 11:12:01 CDT CPT-OV Office Visit 15:30:23 CDT CPT-59987 Sono pelvis non OB uterus ovaries cervix 15:50:44 CDT CPT-49962 Hand comp min 3V 16:42:32 CDT CPT-01487 Abd compl w upright 12:17:01 CDT CPT-71490 Nexplanon Placement 15:07:39 WATER PURIFICATION CHEMIST CPT-72761 Removal of IUD 15:07:39 WATER PURIFICATION CHEMIST CPT-02374 TB Tubersol 12:09:32 CDT CPT-25445 TB Tubersol 13:55:43 CDT
--- OUTSIDE RECORDS SUMMARY | 2020-03-03 06:42 | XMS REPORT | Clinical Summary ---
Author Author Dena, Diamante Marcelo Organization [employer] Address Unknown Phone Unavailable Allergies, Adverse Reactions, Alerts Allergy Name Reaction Description Start Date Severity Status Pr ovider PERCOCET Itchy Rash Severe Active Oxana Mina cheema SURFACE BOSS DILAUDID Severe Active Brii MARROQUIN RN Conditions [...] infective Preventive health care V70.0 Active Nilam Chapni a Routine general medical examination at a [...] quadrant Urinary frequency 788.41 Inactive Roseann Crawford [facility] Urinary frequency Urinary frequency 788.41 Resolved Jose [...] Influenza Vaccination for Prophylaxis V04.81 Inactive Brii Petrona [employer]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 Need for prophylactic vaccin ation and inoculation [...] Active Myrna Roberto MD Dizziness and giddiness FH BREAST CANCER ICD-V16.3 Inactive Jose Marcelo [...] Generic Name NDC Status Provider Patient Instruction PYRIDOXINE HCL 25 MG ORAL TABLET one tab PO 3-4 times per day 12/11 PYRIDOXINE HCL 51738790995 Active Myrna Roberto MD Active UNISOM SLEEPTABS 25 MG ORAL TABLET one tab PO qhs DOXYLAMINE SUCCINATE (SLEEP) 15444868754 Active Myrna Roberto MD Active TYLENOL 325 MG ORAL CAPSULE PRN ACETAMINOPHEN 000 56162836 Active Brii Pacheco Active ESCITALOPRAM OXALATE 10 MG ORAL TABLET take 1 tab po qhs for mod ESCITALOPRAM OXALATE 77325304751 No Longer Active Brii Pacheco Active ALPRAZOLAM 0.25 MG ORAL TABLET 1 tablet by mouth twice a day as needed for stress/anxiety ALPRAZOLAM 54270378630 No Longer Active Brii Pacheco Active PROTONIX 40 MG ORAL TABLET DELAYED RELEASE 1 pill by m outh daily, for acid reflux PANTOPRAZOLE SODIUM 39775051885 No Longer Activ e Brii Tara Active DIFLUCAN 100 MG ORAL TABLET 1 tablet by mouth daily, R EPEAT 2ND DOSE IN 7 DAYS IF STILL SYMPTOMATIC FLUCONAZOLE 47227049736 No Long er Active Nilam Raida Active KEFLEX 500 MG ORAL CAPSULE 1 po tid CEPHALEXI N 17912431113 No Longer Active Tali Devi PA-C Active CONCEPT DHA 53.5-38-1 MG ORAL CAPSULE 1 tablet daily [id number] 3 96170839579 Active Oxana Souza LPN Active AMOXICILLIN 875 MG ORAL TABLET 1 tab by mouth twice daily 1 AMOXICILLIN 79766495200 No Longer Active Brii Russ APRN Active TUSSIONEX PENNKINETIC ER 10-8 MG/5ML ORAL SUSPENSION E XTENDED RELEASE 5ml po q12hr PRN Cough HYDROCOD POLST-CHLORPHEN POLST 5 1009379867 No Longer Active Myrna Roberto MD Active ZITHROMAX Z-EMIL 250 MG TABS Take two tablets today and then 1 tablet daily for 4 days AZITHROMYCIN 85875771641 No Longer Active Flaco Rosales MD Active GUAIFENESIN DM 400-20 MG ORAL TABLET 1 pill by mouth t wice daily, if needed for cough DEXTROMETHORPHAN-GUAIFENESIN 72328071152 No Longer Active Rich Rosales MD Active CEFDINIR 300 MG ORAL CAPSULE 1 po BID x 10 days CEFDINIR 40145339137 No Longer Active Jessica Heaton APRN Active CHERATUSSIN AC 100-10 MG/5ML ORAL SYRUP 1 tsp by mouth every 4 hours as needed for cough GUAIFENESIN-CODEINE 47625834030 No Longe r Active Jessica Heaton APRN Active TAMIFLU 75 MG ORAL CAPSULE 1 po BID x 5 days 0 OSELTAMIVIR PHOSPHATE 53023861783 No Longer Active Jose Zhong MD Activ e ZITHROMAX Z-EMIL 250 MG ORAL TABLET 2 today, then 1 daily for 4 d ays AZITHROMYCIN 59567723574 No Longer Active Arie Casper MD Active PROTONIX 40 MG ORAL TABLET DELAYED RELEASE 1 po q a.m. 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 CETIRIZINE HCL 10 MG ORAL TABLET 1 po qd PRN Allergies CETIRIZINE HCL 68929408697 No Longer Active Brii Russ APRN Activ e PREDNISONE 20 MG ORAL TABLET 2 tabs daily for 3 days, 1 tab daily for 3 days, 1/2 tab daily for 2 days PREDNISONE 43573450798 No Longer Active Arie Casper MD Active LOMOTIL 2.5-0.025 MG ORAL TABLET 1 tab po four times a day as needed for diarrhea DIPHENOXYLATE-ATROPINE 67753098866 No Lo nger Active Arie Casper MD Active ZOLOFT 50 MG ORAL TABLET 1 tablet by mouth daily 12/08 SERTRALINE HCL 07884417142 No Longer Active Arie Casper MD Ac tive NAPROXEN 500 MG ORAL TABLET Take 1 tab BID NAPR OXEN 56326514892 No Longer Active Arie Casper MD Active CEFDINIR 300 MG ORAL CAPSULE 1 po BID x 10 days CEFDINIR 31767489256 No Longer Active Brii Russ APRN Active PREDNISONE 20 MG ORAL TABLET 1 tablet daily for airway inflammat ion PREDNISONE 27758774937 No Longer Active Brii Russ APRN A ctive CEFDINIR 300 MG ORAL CAPSULE 1 po BID x 10 days CEFDINIR 48786627735 No Longer Active Jono Gagnon DO Active FLONASE 50 MCG/ACT NASAL SUSPENSION 1 spray each nostr il twice daily for allergies and runny nose until gone FLUT ICASONE PROPIONATE 63964754017 No Longer Active Jono Gagnon DO Active ALPRAZOLAM 0.25 MG ORAL TABLET 1 tablet by mouth every 8 hours as needed for stress ALPRAZOLAM 11545153184 No Longer Active Jono Gagnon DO Active ZITHROMAX Z-EMIL 250 MG ORAL TABLET 2 today, then 1 daily for 4 d ays AZITHROMYCIN 35247281150 No Longer Active Arie Casper MD Active PREDNISONE 20 MG ORAL TABLET 2 tabs daily for 3 days, 1 tab daily for 3 days, 1/2 tab daily for 2 days PREDNISONE 75719457821 No Longer Active Brii Areboris QUALITY ASSUR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 Active PREDNISONE 20 MG ORAL TABLET 1 tablet twice daily for 2 days, then 1 tablet once daily for 2 days PREDNISONE 47531151334 No Longer Active Brii Russ QUALITY ASSUR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 Active PROMETHAZINE HCL 12.5 MG ORAL TABLET 1 tablet by mouth every 6 hours as needed for nausea/vomiting PROMETHAZINE HCL 12928658885 No L onger Active Jono Gagnon DO Active CITRATE OF MAGNESIA ORAL SOLUTION 1 bottle today for constipatio n MAGNESIUM CITRATE 20527434579 No Longer Active Jono Gagnon DO Active ZOFRAN 4 MG ORAL TABLET 1 TAB PO Q 6 HRS PRN NAUSEA 07/10/15 ONDANSETRON HCL 79239198246 No Longer Active Brii Arell QUALITY ASSUR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 Acti ve LOMOTIL 2.5-0.025 MG ORAL TABLET 1 to 2 four times a day as needed for diarrhea DIPHENOXYLATE-ATROPINE 44967988064 No Longer Active January Russ APRN Active AMOXICILLIN 500 MG ORAL TABLET 2 tabs twice a day for 10 days 20 07/09/11 AMOXICILLIN 51638608498 No Longer Active Brii Arell QUALITY ASSUR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 Active CYCLOBENZAPRINE HCL 10 MG ORAL TABLET 1/2 - 1 tablet b y mouth three times daily as needed for muscle spasm/pain CYCLOBENZAPRINE HCL 93136783356 No Longer Active Arie Casper MD Active LOMOTIL 2.5-0.025 MG ORAL TABLET 1 to 2 four times a day as needed for diarrhea DIPHENOXYLATE-ATROPINE 10406895248 No Longer Active Fozia Casper MD Active MACROBID 100 MG ORAL CAPSULE 1 cap by mouth twice daily NITROFURANTOIN MONOHYD MACRO 52889216730 No Longer Active Arie Casper MD Active ZYRTEC ALLERGY 10 MG ORAL CAPSULE 1 po qd CE TIRIZINE HCL 77471640204 No Longer Active Arie Casper MD Active AZITHROMYCIN 250 MG ORAL TABLET 2 po qd x 1 day, then 1 po q d x 4 days AZITHROMYCIN 46354076956 No Longer Active Waynellarlen salgado QUALITY ASSUR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 Active PREDNISONE 20 MG ORAL TABLET 2 tabs daily for 3 days, 1 tab daily for 3 days, 1/2 tab daily for 2 days PREDNISONE 69845565748 No Longer Active Waynellarlen Heaton QUALITY ASSUR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 Active PROMETHAZINE HCL 25 MG ORAL TABLET 1 four times a day as nee ded for vomiting PROMETHAZINE HCL 23620023088 No Longer Active Myrna Roberto MD Active BACTRIM DS 800-160 MG ORAL TABLET 1 twice a day 05/30 SULFAMETHOXAZOLE-TRIMETHOPRIM 92836803468 No Longer Active Myrna Roberto MD Active VICKS DAYQUIL SEVERE COLD/FLU TABLET 1 tab every 6 hours prn 201 02/22/17 [id number] TABS 89971851772 No Longer Active K fany Roberto MD Active GUAIFENESIN-CODEINE 100-10 MG/5ML ORAL SYRUP 2 tsp every 6 hours prn GUAIFENESIN-CODEINE 96134158471 No Longer Active Myrna Roberto MD Active NAPROXEN 500 MG ORAL TABLET one tab PO BID NAPR OXEN 09477052937 No Longer Active Myrna Roberto MD Active AUGMENTIN 875-125 MG ORAL TABLET 1 tab by mouth twice daily with food AMOXICILLIN-POT CLAVULANATE 52587902229 No Longer Act zaid Liliana Estrada MD PhD Active AMOXICILLIN 500 MG ORAL CAPSULE 1 tab by mouth 3 times daily 201 02/21/05 AMOXICILLIN 39661158567 No Longer Active Lilinaa Estrada MD PhD Active TESSALON PERLES 100 MG ORAL CAPSULE 1 tablet by mouth 3 times da cory BENZONATATE 73583115090 No Longer Active Liliana Estrada MD PhD Active FLAGYL 500 MG ORAL TABLET 1 tablet by mouth two times daily 2014 METRONIDAZOLE 23174791045 No Longer Active Nilamnory Plattida Espinoza tive ZITHROMAX 250 MG ORAL TABLET 2 po today, then 1 po q days 2-5 20 06/08/16 AZITHROMYCIN 59269651090 No Longer Active Arie Casper MD Active VITAMINS 0.8 MG ORAL TABLET take 1 tab po qday [id number] 98244691929 No Longer Active Arie Casper MD Active IBUPROFEN 800 MG ORAL TABLET take one po Q 8 hours 201 02/01/16 IBUPROFEN 14865778227 No Longer Active Arie Casper MD Acti ve [facility] TUSSIN COUGH/COLD CF 5-10-100 MG/5ML ORAL LIQUID 2 teasp oons every 4 hours [id number] 95305431211 No Longer Active Blaine Casper MD Active COMTREX COLD/COUGH DAY/NITE MS 5-2-10-325 MG ORAL 2 caps deja ry 4 hours [id number] 46381059290 No Longer Active Landon Casper MD Active CHLORASEPTIC MAX SORE THROAT 15-10 MG MOUTH/THROAT LOZENGE 1 every 2 hours prn BENZOCAINE-MENTHOL 48318712794 No Longer Active Arie Casper MD Active PREDNISONE 20 MG ORAL TABLET 2 tabs daily for 3 days, 1 tab daily for 3 days, 1/2 tab daily for 2 days PREDNISONE 46342667338 No Longer Active Jose Zhong MD Active AZITHROMYCIN 250 MG ORAL TABLET 2 po qd x 1 day, then 1 po q d x 4 days AZITHROMYCIN 24398008235 No Longer Active Jose Mcwilliams MD Active ZOFRAN ODT 4 MG ORAL TABLET DISINTEGRATING 1 po q6hr PRN Nausea ONDANSETRON 40884043020 No Longer Active Rich Rosales MD Active ZOFRAN 4 MG ORAL TABLET 1 tablet every 4 hours ONDANSETRON HCL 55208173183 No Longer Active Rich Rosales MD Activ e MUCINEX 600 MG ORAL TABLET EXTENDED RELEASE 12 HOUR Ta ke 1-2 tablets every 12 hours GUAIFENESIN 89518560450 No Longer Active Rich Rosales MD Active BACTRIM 400-80 MG ORAL TABLET take one po BID SULFAMETHOXAZOLE-TRIMETHOPRIM 30395302458 No Longer Active Abelardo HERNANDEZ Active AZITHROMYCIN 500 MG ORAL TABLET 1 PO q day x 6 days 20 03/02/23 AZITHROMYCIN 68370842337 No Longer Active Tin HERNANDEZ Activ e ZITHROMAX 250 MG ORAL TABLET 2 po today, then 1 po q days 2-5 20 10/03/08 AZITHROMYCIN 98925580879 No Longer Active Arie Casper MD Active ZITHROMAX 250 MG ORAL TABLET 2 po today, then 1 po q days 2-5 20 09/23/25 AZITHROMYCIN 77956288670 No Longer Active Arie Casper MD Active AMOXICILLIN 500 MG ORAL CAPSULE 1 tab by mouth 3 times daily 201 11/24/09 AMOXICILLIN 93060778063 No Longer Active Arie Casper MD Active BACTRIM DS 800-160 MG ORAL TABLET 1 tab by mouth twice daily 201 11/03/14 TRIMETHOPRIM-SULFAMETHOXAZOLE 47708739489 No Longer Active Fozia Casper MD Active AMOXICILLIN 500 MG ORAL TABLET take 1 tab po TID 08/05 AMOXICILLIN 01249614970 No Longer Active Arie Casper MD Acti ve BACTRIM DS 800-160 MG ORAL TABLET 1 tab by mouth twice daily 201 11/03/14 BACTRIM DS 800-160 MG ORAL TABLET 19821226 TRIMETHOPRIM-SULFAMETHOXAZOLE Inactive MUCINEX 600 MG ORAL TABLET EXTENDED RELEASE 12 HOUR Ta ke 1-2 tablets every 12 hours MUCINEX 600 MG ORAL TABLET EXTENDED RELEA SE 12 HOUR GUAIFENESIN Inactive ZOFRAN 4 MG ORAL TABLET 1 tablet every 4 hours ZOFRAN 4 MG ORAL TABLET 142256 ONDANSETRON HCL Inactive ZOFRAN ODT 4 MG [...] COLD/COUGH DAY/NITE MS 5-2-10-325 MG ORA L [id number] Inactive [facility] TUSSIN COUGH/COLD CF 5-10-100 MG/5ML ORAL LIQUID 2 teasp oons every 4 hours [facility] TUSSIN COUGH/COLD CF 5-10-100 MG/5ML ORAL LI QUID [id number] Inactive IBUPROFEN 800 MG ORAL TABLET take one po Q 8 hours 201 02/01/16 IBUPROFEN 800 MG ORAL TABLET IBUPROFEN Inactive VITAMINS 0.8 MG ORAL TABLET take 1 tab po qday VITAMINS 0.8 MG ORAL TABLET [id number] E-FA Inactive TESSALON PERLES 100 MG ORAL CAPSULE 1 tablet by mouth 3 times da cory TESSALON PERLES 100 MG ORAL CAPSULE 19730630 BENZONATATE Inactive AMOXICILLIN 500 MG ORAL CAPSULE 1 tab by mouth 3 times daily 201 02/21/05 AMOXICILLIN 500 MG ORAL CAPSULE 494219 AMOXICILLIN Inactive GUAIFENESIN-CODEINE 100-10 MG/5ML ORAL SYRUP 2 tsp every 6 hours prn GUAIFENESIN-CODEINE 100-10 MG/5ML ORAL SYRUP 535841 GUAIFENESIN-CODEINE Inactive VICKS DAYQUIL SEVERE COLD/FLU TABLET 1 tab every 6 hours prn 201 02/22/17 VICKS DAYQUIL SEVERE COLD/FLU TABLET PHENYLEPHRI [id number]-KR-UI-APAP TABS Inactive BACTRIM DS 800-160 MG ORAL TABLET 1 twice a day 05/30 BACTRIM DS 800-160 MG ORAL TABLET 704221 SULFAMETHOXAZOLE-TRIMETHOPRIM Inactiv e PROMETHAZINE HCL 25 MG ORAL TABLET 1 four times a day as nee ded for vomiting PROMETHAZINE HCL 25 MG ORAL TABLET 072847 PROMETHAZINE HCL Inactive ZYRTEC ALLERGY 10 MG ORAL CAPSULE 1 po qd ZYRTEC ALLERGY 10 MG ORAL CAPSULE CETIRIZINE HCL Inactive MACROBID 100 MG ORAL CAPSULE 1 cap by mouth twice daily MACROBID 100 MG ORAL CAPSULE 7055401 NITROFURANTOIN MONOHYD MACRO In active LOMOTIL 2.5-0.025 MG ORAL TABLET 1 to 2 four times a day as needed for diarrhea LOMOTIL 2.5-0.025 MG ORAL TABLET 9892012 DIPHENOXYLATE-ATROPINE Inactive CYCLOBENZAPRINE HCL 10 MG ORAL TABLET 1/2 - 1 tablet b y mouth three times daily as needed for muscle spasm/pain CYCLOBEN ZAPRINE HCL 10 MG ORAL TABLET 250687 CYCLOBENZAPRINE HCL Inactive AMOXICILLIN 500 MG ORAL TABLET 2 tabs twice a day for 10 days 20 07/09/11 AMOXICILLIN 500 MG ORAL TABLET 340480 AMOXICILLIN I nactive LOMOTIL 2.5-0.025 MG ORAL TABLET 1 to 2 four times a day as needed for diarrhea LOMOTIL 2.5-0.025 MG ORAL TABLET 0664247 DIPHENOXYLATE-ATROPINE Inactive ZOFRAN 4 MG ORAL TABLET 1 TAB PO Q 6 HRS PRN NAUSEA 20 07/10/15 ZOFRAN 4 MG ORAL TABLET 341553 ONDANSETRON HCL Inactive CITRATE OF MAGNESIA ORAL SOLUTION 1 bottle today for constipatio n CITRATE OF MAGNESIA ORAL SOLUTION 2564225 MAGNESIUM CITR ATE Inactive PROMETHAZINE HCL 12.5 MG ORAL TABLET 1 tablet by mouth every 6 hours as needed for nausea/vomiting PROMETHAZINE HCL 12.5 MG ORA L TABLET 126270 PROMETHAZINE HCL Inactive PREDNISONE 20 MG ORAL TABLET 1 tablet twice daily for 2 days, then 1 tablet once daily for 2 days PREDNISONE 20 MG ORAL TABLET 188971 PREDNISONE Inactive ALPRAZOLAM 0.25 MG ORAL TABLET 1 tablet by mouth every 8 hours as needed for stress ALPRAZOLAM 0.25 MG ORAL TABLET 447424 ALPRA ZOLAM Inactive FLONASE 50 MCG/ACT NASAL SUSPENSION 1 spray each nostr il twice daily for allergies and runny nose until gone FLON ASE 50 MCG/ACT NASAL SUSPENSION FLUTICASONE PROPIONATE Inactive PREDNISONE 20 MG ORAL TABLET 1 tablet daily for airway inflammat ion PREDNISONE 20 MG ORAL TABLET 524520 PREDNISONE [place] ctive NAPROXEN 500 MG ORAL TABLET Take 1 tab BID NAPROXEN 500 MG ORAL TABLET 788948 NAPROXEN Inactive ZOLOFT 50 MG ORAL TABLET 1 tablet by mouth daily 12/08 ZOLOFT 50 MG ORAL TABLET 569940 SERTRALINE HCL Inactive LOMOTIL 2.5-0.025 MG ORAL TABLET 1 tab po four times a day as needed for diarrhea LOMOTIL 2.5-0.025 MG ORAL TABLET 7544496 DIPHENOXYLATE-ATROPINE Inactive CETIRIZINE HCL 10 MG ORAL TABLET 1 po qd PRN Allergies CETIRIZINE HCL 10 MG ORAL TABLET 6746487 CETIRIZINE HCL Inactiv e TUSSIONEX PENNKINETIC ER 10-8 MG/5ML ORAL SUSPENSION E XTENDED RELEASE 5ml po q12hr PRN Cough TUSSIONEX PENNKINETI C ER 10-8 MG/5ML ORAL SUSPENSION EXTENDED RELEASE HYDROCOD POLST-CHLORPHEN POLST I nactive NEXPLANON IMPLANT right arm subcutaneously NEXPLANON IMPLANT ETONOGESTREL IMPL Inactive PROTONIX 40 MG ORAL TABLET DELAYED RELEASE 1 po q a.m. PROTONIX 40 MG ORAL TABLET DELAYED RELEASE 289830 PANTOPRAZOLE SODI UM Inactive CHERATUSSIN AC 100-10 MG/5ML ORAL SYRUP 1 tsp by mouth every 4 hours as needed for cough CHERATUSSIN AC 100-10 MG/5ML ORAL SYRUP 9 85941 GUAIFENESIN-CODEINE Inactive GUAIFENESIN DM 400-20 MG ORAL [...] tid K EFLEX 500 MG ORAL CAPSULE 316776 CEPHALEXIN Inactive DIFLUCAN 100 MG ORAL TABLET 1 tablet by mouth daily, R EPEAT 2ND DOSE IN 7 DAYS IF STILL SYMPTOMATIC DIFLUCAN 100 MG ORAL TABLET 80504 8 FLUCONAZOLE Inactive PROTONIX 40 MG ORAL TABLET DELAYED RELEASE 1 pill by m outh daily, for acid reflux PROTONIX 40 MG ORAL TABLET DELAYED RELEAS E 477403 PANTOPRAZOLE SODIUM Inactive ALPRAZOLAM 0.25 MG ORAL TABLET 1 tablet by mouth twice a day as needed for stress/anxiety ALPRAZOLAM 0.25 MG ORAL TABLET 153548 ALPRAZOLAM Inactive ESCITALOPRAM OXALATE 10 MG ORAL TABLET take 1 tab po qhs for mod ESCITALOPRAM OXALATE 10 MG ORAL TABLET 102218 ESCITALOP JO OXALATE Inactive AMOXICILLIN 500 MG ORAL TABLET take 1 tab po TID 08/05 AMOXICILLIN 500 MG ORAL TABLET 174705 AMOXICILLIN Inactive AMOXICILLIN 500 MG ORAL CAPSULE 1 tab by mouth 3 times daily 201 11/24/09 AMOXICILLIN 500 MG ORAL CAPSULE 292593 AMOXICILLIN Inactive ZITHROMAX 250 MG ORAL TABLET 2 po today, then 1 po q days 2-5 20 09/23/25 ZITHROMAX 250 MG ORAL TABLET 976958 AZITHROMYCIN [place] ctive ZITHROMAX 250 MG ORAL TABLET 2 po today, then 1 po q days 2-5 20 10/03/08 ZITHROMAX 250 MG ORAL TABLET 845310 AZITHROMYCIN [place] ctive AZITHROMYCIN 500 MG ORAL TABLET 1 PO q day x 6 days 20 03/02/23 AZITHROMYCIN 500 MG ORAL TABLET 5342408 AZITHROMYCIN Inactive BACTRIM 400-80 MG ORAL TABLET take one po BID BACTRIM 400- 80 MG ORAL TABLET 891577 SULFAMETHOXAZOLE-TRIMETHOPRIM Inactive AZITHROMYCIN 250 MG ORAL TABLET 2 po qd x 1 day, then 1 po q d x 4 days AZITHROMYCIN 250 MG ORAL TABLET 786632 AZITHROMY ALLISON Inactive PREDNISONE 20 MG ORAL TABLET 2 tabs daily for 3 days, 1 tab daily for 3 days, 1/2 tab daily for 2 days PREDNISONE 20 MG ORAL T ABLET 093769 PREDNISONE Inactive ZITHROMAX 250 MG ORAL TABLET 2 po today, then 1 po q days 2-5 20 06/08/16 ZITHROMAX 250 MG ORAL TABLET 437215 AZITHROMYCIN [place] ctive FLAGYL 500 MG ORAL TABLET 1 tablet by mouth two times daily 2014 FLAGYL 500 MG ORAL TABLET 103945 METRONIDAZOLE Inacti ve AUGMENTIN 875-125 MG ORAL TABLET 1 tab by mouth twice daily with food AUGMENTIN 875-125 MG ORAL TABLET 983161 AMOXICIL ELSA-POT CLAVULANATE Inactive NAPROXEN 500 MG ORAL TABLET one tab PO BID NAPROXEN 500 MG ORAL TABLET 883862 NAPROXEN Inactive PREDNISONE 20 MG ORAL TABLET 2 tabs daily for 3 days, 1 tab daily for 3 days, 1/2 tab daily for 2 days PREDNISONE 20 MG ORAL T ABLET 726418 PREDNISONE Inactive AZITHROMYCIN 250 MG ORAL TABLET 2 po qd x 1 day, then 1 po q d x 4 days AZITHROMYCIN 250 MG ORAL TABLET 644894 AZITHROMY ALLISON Inactive PREDNISONE 20 MG ORAL TABLET 2 tabs daily for 3 days, 1 tab daily for 3 days, 1/2 tab daily for 2 days PREDNISONE 20 MG ORAL T ABLET 948667 PREDNISONE Inactive ZITHROMAX Z-EMIL 250 MG ORAL TABLET 2 today, then 1 daily for 4 d ays ZITHROMAX Z-EMIL 250 MG ORAL TABLET 658658 AZITHROMYCIN Inactive CEFDINIR 300 MG ORAL CAPSULE 1 po BID x 10 days 12/18 CEFDINIR 300 MG ORAL CAPSULE 708181 CEFDINIR Inactive CEFDINIR 300 MG ORAL CAPSULE 1 po BID x 10 days CEFDINIR 300 MG ORAL CAPSULE 734338 CEFDINIR Inactive PREDNISONE 20 MG ORAL TABLET 2 tabs daily for 3 days, 1 tab daily for 3 days, 1/2 tab daily for 2 days PREDNISONE 20 MG ORAL T ABLET 539652 PREDNISONE Inactive BACTRIM DS 800-160 MG ORAL TABLET 1 tab by mouth twice daily 201 05/02/30 BACTRIM DS 800-160 MG ORAL TABLET 399249 TRIMETHOPRIM-SULFAMETHOXAZOLE Inactive ZITHROMAX Z-EMIL 250 MG ORAL TABLET 2 today, then 1 daily for 4 d ays ZITHROMAX Z-EMIL 250 MG ORAL TABLET 612512 AZITHROMYCIN Inactive TAMIFLU 75 MG ORAL CAPSULE 1 po BID x 5 days 0 TAMIFLU 75 MG ORAL CAPSULE 998887 OSELTAMIVIR PHOSPHATE Inactive CEFDINIR 300 MG ORAL CAPSULE 1 po BID x 10 days 01/03 CEFDINIR 300 MG ORAL CAPSULE 519359 CEFDINIR Inactive ZITHROMAX Z-EMIL 250 MG TABS Take two tablets today and then 1 tablet daily for 4 days ZITHROMAX Z-EMIL 250 MG TABS 856149 AZITHROM YCIN Inactive AMOXICILLIN 875 MG ORAL TABLET 1 tab by mouth twice daily 1 AMOXICILLIN 875 MG ORAL TABLET 041960 AMOXICILLIN Inactive Advance Directives Directive Description Start [...] weight E&M 173 [lb_av] Weight Measure d blood pressure, diastolic 70 mm[Hg] BP kennedy blood pressure, systolic 113 mm[Hg] BP sys height E&M 66 [in_us] Bdy height pulse rate E&M 71 /min Heart rate temperature E&M 98.7 [degF] Body temp erature weight E&M 172 [lb_av] Weight Measure d blood pressure, diastolic 72 mm[Hg] BP kennedy blood pressure, systolic 139 mm[Hg] BP sys height E&M 66 [in_us] Bdy height pulse rate E&M 78 /min Heart rate temperature E&M 99.7 [degF] Body temp erature weight E&M 172 [lb_av] Weight Measure d blood pressure, diastolic 65 mm[Hg] BP kennedy blood pressure, systolic 119 mm[Hg] BP sys height E&M 66 [in_us] Bdy height pulse rate E&M 82 /min Heart rate temperature E&M 99.2 [degF] Body temp erature weight E&M 173 [...] 11 .0-15.0 platelet count 280 THOUSAND/UL 10*3/mm3 805-260 9415/02/18 mean platelet volume 11.6 fL 7.5-12.5 Lab [...] 11 .6-14.8 platelet count 245 10^3/MM^3 10*3/mm3 500-259 8747/09/27 erythrocyte (RBC) count 4.77 10^6/MM^3 10*6/mm3 3.80-5.8 0 hematocrit, blood 39.1 % 37.0-47.0 mean corpuscular volume, RBC 82 fL 80-97 mean corpuscular hemoglobin, RBC 25.6 pg 27. 0-31.2 mean corpuscular hemoglobin concentration, RBC 31.2 G/DL % 31.8-35.4 red blood cell distribution width 12.5 % 11 .6-14.8 platelet count 297 10^3/MM^3 10*3/mm3 573-738 0121/09/27 lymphocytes as percent of blood leukocytes 29.2 % 20.5-51.1 monocytes as percent of blood leukocytes 9.7 % 1.7-9.3 neutrophils as percent of blood leukocytes 55.9 % 42.2-75.2 leukocyte count, blood 7.6 10^3/MM^3 10*3/mm3 4.6-10.2 hemoglobin, blood 12.2 g/dL 12.0-16.0 Lab Report: Comp. Metabolic Panel, Thyro id Stimulating Hormone (L) - Chemistry sodium, serum 138 mmol/L 528-092 7020/04/11 carbon dioxide, venous blood 27.1 mmol/L 21.0-32 [...] Lab Alkaline phosphatase 77 50-136 Lab Report: FSH/Adult/470, PROLACTIN - C hemistry follicle stimulating hormone, serum 1.4 m[iU]/mL Lab Report: LH/Adult/615 - Chemistry luteinizing hormone, serum 2.7 m[iU]/mL Lab Report: Thyroid Stimulating Hormone (L) - Chemistry TSH 0.95 m[iU]/mL 0.36-3.74 Lab Report: Thyroid Stimulating Hormone (L), UADIP W/MICRO, AUTO, Wet Pr ... - Chemistry protein, total urine random Negative mg/dL Negative TSH 1.16 m[iU]/mL 0.36-3.74 RBC, urine, dipstick 1+ Negative Lab Report: Thyroid Stimulating Hormone (L), UADIP W/MICRO, AUTO, Wet Pr ... - Urinalysis urobilinogen, urine, semiquantitative (dipstick) 0.2 E .U./dL Normal leukocyte esterase, urine, by dipstick Negative Negative nitrite, urine, semiquantitative Negative Neg ative urine color Yellow Colorless;Lightyellow;St raw;Yellow appearance, urine Clear Clear specific gravity, urine >=1.030 1.000-1.030 pH, urine, semiquantitative 6.0 5.0-8.5 glucose, urine, semiquantitative Negative Neg ative ketones, urine, by test strip 4+ Negati ve bilirubin, urine Negative Negative Office Visit: Evaluation for infertility - Chemistry human chorionic gonadotropin , urine, qualitative (urine test) Negative Office Visit: Initial OB Visit - Genetic s/fertility test, date 11/29/2018 Office Visit: Initial OB Visit - Microbi ology Herpes Simplex Virus Genital no Office Visit: Initial OB Visit - Urinaly sis protein, urine, semiquantitative (dipstick) UC glucose, urine, semiquantitative UC nitrite, urine, semiquantitative UC Office Visit: possible UTI or yeast infe ction - Chemistry protein, total urine random negative mg/dL RBC, urine, dipstick hemolyzed trace Office Visit: possible UTI or yeast infe ction - Urinalysis specific gravity, urine 1.025 ketones, urine, by test strip trace (5) bilirubin, urine negative glucose, urine, semiquantitative negative urinalysis, routine Clean Catch urine color yellow appearance, urine clear leukocyte esterase, urine, by dipstick negative nitrite, urine, semiquantitative negative urobilinogen, urine, semiquantitative (dipstick) 0.2 pH, urine, semiquantitative 5 Office Visit: vaginal bleeding, nausea 3 06 - Chemistry HDL cholesterol, serum, target level 40 mg/dL cholesterol, target level 200 mg/dL triglyceride, target level 150 mg/dL Encounters Code Encounter Date Provider Facility CPT-56801 Level 4 Est. Patient 16:18:17 SKEIN BLEACHER Myrna maldonado MD [facility] CPT-48041 Level 4 Est. Patient 16:39:44 SKEIN B[employer]ER Jose Zhong MD [facility] CPT-56444 [id number] Vst-Est Level IV 13:45:[address] Tali Devi PA-C [facility] CPT-77529 [id number] Vst-Est Level III 09:41:31 CDT Arie Casper MD [facility]-86901 38424-Hsb Vst-Est Level III 18:20:11 CDT Me lobito Russ [facility]-50883 23512-Mnw Vst-Est Level III 17:21:41 CDT Me lobito Russ [facility] CPT-59172 21614-Ysi Vst-Est Level IV 13:30:22 C DT Arie Casper MD [facility] CPT-15823 Level 4 Est. Patient 13:05:26 CDT Myrna maldonado [facility]-80270 33703-Tda Vst-Est Level IV 20:50:21 C NIC Casper MD [facility] CPT-65630 Level 3 Est. Patient 11:49:34 SKEIN BLEACHER Jessica boyd [facility] CPT-42418 Level 3 Est. Patient 14:55:50 [employer]KEIN [employer]ER Jose Zhong MD [facility] CPT-55685 Level 3 Est. Patient 10:21:41 SKEIN BLEACHER Arie mcqueen MD [facility] CPT-88651 Level 3 Est. Patient 11:35:15 SKEIN B[employer]ER Arie mcqueen MD [facility] CPT-34482 Level 3 Est. Patient 15:40:28 CDT Brii Yepez [facility] CPT-87880 Level 3 Est. Patient 16:40:36 CDT Arie mcqueen MD [facility] CPT-49134 Level 4 Est. Patient 15:29:22 SKEIN BLE[employer]ER Arie mcqueen MD [facility] CPT-07926 Level 3 Est. Patient 15:18:16 SKEIN B[employer]ER Jono black DO [facility] CPT-68953 Level 4 Est. Patient 12:08:40 SKEIN BLEACHER Brii Are ll [facility] CPT-76107 Level 3 Est. Patient 09:24:42 CDT Brii Are ll [employer]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 [facility] CPT-79747 Level 3 Est. Patient 09:12:56 CDT Arie mcqueen MD [facility] CPT-63157 Level 3 Est. Patient 16:40:54 CDT Jose Zhong MD [facility] CPT-82763 Level 2 Est. Patient 13:01:13 CDT Brii Are ll QUALITY ASSUR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 [facility] CPT-21394 Level 3 Est. Patient 11:55:30 SKEIN BLE[employer]ER Jono black DO [facility] CPT-98084 Level 3 Est. Patient 09:52:36 SKEIN BLEACHER Brii Are ll [facility] CPT-33296 Level 3 Est. Patient 16:25:33 SKEIN BLEACHER Rich Rosales MD [facility] CPT-63243 Level 3 Est. Patient 20:33:55 CDT Arie mcqueen MD [facility] CPT-93157 Level 3 Est. Patient 14:18:20 CDT Rich Rosales MD [facility] CPT-59899 Level 4 Est. Patient 09:34:31 CDT Arie mcqueen MD [facility] CPT-35408 Level 3 Est. Patient 09:08:55 S[employer]IN B[employer]ER Liliana vincent MD PhD [facility] CPT-85914 Level 3 Est. Patient 16:44:07 SKEIN BLEACHER Arie mcqueen MD [facility] CPT-86809 Level 3 Est. Patient 10:44:27 CDT Arie mcqueen MD [facility] CPT-70979 Level 3 Est. Patient 08:55:41 CDT Jose Zhong MD [facility] CPT-82066 Level 3 Est. Patient 18:37:31 CDT Liliana vincent MD PhD [facility] CPT-58832 Level 3 Est. Patient 14:28:23 CDT Abelardo HERNANDEZ [facility] CPT-63068 Level 3 Est. Patient 15:18:13 SKEIN BLE[employer]ER Arie mcqueen MD [facility] CPT-56680 Level 3 Est. Patient 10:11:29 SKEIN BLEACHER Arie mcqueen MD [facility] CPT-66641 Level 3 Est. Patient 10:55:57 SKEIN BLE[employer]ER Jono black DO [facility] CPT-34504 Level 3 Est. Patient 17:29:05 CDT Arie mcqueen MD [facility] Procedures Code Procedure Name Date Entry Date Standard Desc ription CPT-39414 Sono OB transvag XRAY USE ONLY 17:12:53 CS T CPT-47955 Sono OB transvag XRAY USE ONLY 17:11:12 CS T CPT-47674 UHCG Urine - MARC ONLY 12:13:59 SKEIN BLEACHER 12/11 CPT-85226 Spec Collection and Handling Fee 12:13:[address] CPT-75710 Visit 12:13:59 SKEIN BLEACHER CPT-14556 First Vx - Ix admin via ID I M or jet injects without counseling by physician 13:00:15 SKEIN BLEACHER CPT-93834 Flulaval Intramuscular Injectable 13:00:15 SKEIN BLEACHER CPT-69356 Urine Dip (Floor Use Only) 12:20:20 SKEIN BLEACHER 201 06/03/24 CPT-82766 Sono Soft Tissue Head and Neck - XRAY US E ONLY 17:10:14 CDT CPT-42490 Ear Wash with irrigation 17:21:41 CDT 07/04 CPT-77657 Nexplanon Removal 15:40:28 CDT CPT-41753 Sono transvag pelvis non OB uterus ovari es cervix - XRAY USE ONLY 08:58:14 SKEIN BLEACHER CPT-70627 UA w micro - LAB USE ONLY 16:04:56 SKEIN BLEACHER 2015 CPT-99065 Wet Prep/GEN - LAB USE ONLY 16:04:56 SKEIN BLEACHER 20 08/10/29 CPT-15937 First Vx - Ix admin via ID I M or jet injects without counseling by physician 16:57:10 CDT CPT-25687 Fluzone Preservative Free Intramuscular Suspension 16:57:10 CDT CPT-J0696 Rocephin 1000 mg (Ceftriaxone) 11:49:23 CDT CPT-J1040 Depo Medrol 80 mg (Methyl Prednisolone A cetate) 11:49:23 CDT CPT-J1100 Decadron 8mg (Dexamethasone) 11:49:23 CDT 2 CPT-54846 Abx/Therapy Injection 11:49:23 CDT CPT-82774 Abx/Therapy Injection 11:49:23 CDT CPT-02627 Abd compl w upright 09:07:26 SKEIN BLEACHER CPT-12362 Ear Wash 16:12:47 SKEIN BLEACHER CPT-OV Office Visit 11:12:01 CDT CPT-OV Office Visit 15:30:23 CDT CPT-31482 Sono pelvis non OB uterus ovaries cervix 15:50:44 CDT CPT-07799 Hand comp min 3V 16:42:32 CDT CPT-30542 Abd compl w upright 12:17:01 CDT CPT-09801 Nexplanon Placement 15:07:39 SKEIN BLEACHER CPT-35714 Removal of IUD 15:07:39 SKEIN BLEACHER CPT-65372 TB Tubersol 12:09:32 CDT CPT-09209 TB Tubersol 13:55:43 CDT
--- OUTSIDE RECORDS SUMMARY | 2020-03-03 06:42 | XMS REPORT | Clinical Summary ---
Author Author Admin, Diamante Marceol Organization [facility] Address Unknown Phone Unavailable Allergies, Adverse Reactions, Alerts Allergy Name Reaction Description Start Date Severity Status Pr ovider PERCOCET Itchy Rash Severe Active Oxana Mina cheema MEETING FACILITATOR DILAUDID Severe Active Brii MARROQUIN RN Conditions [...] as infective Preventive health care V70.0 Active iNlam Chapin a Routine general medical examination at [...] unspecified site Allergic rhinitis 477.9 Active Brii uRss APRN Allergic rhinitis, cause unspecified Abdominal pain, right lower quadrant 789.03 Resolved Jose Zhong MD Abdominal pain, right lower quadrant Urinary frequency 788.41 Inactive Roseann Crawford [facility] Urinary frequency Urinary frequency 788.41 Resolved [...] Vaccination for Prophylaxis V04.81 Inactive Brii Russ WINDSHIELD REPAIR TECHNICIAN Need for prophylactic vaccin ation and [...] Roberto MD Fibroids, uterus ICD-218.9 Inactive Myrna jessu MD ACCIDENT CAUSED BY HYPODERMIC NEEDLE ICD-E920.5 [...] 5 days for bladder infection CIPROFLOXACIN HCL 44963999205 Active Arie Casper MD Active PYRIDOXINE HCL 25 MG ORAL TABLET one tab PO 3-4 times per day 12/11 PYRIDOXINE HCL 40165902943 Active Myrna Roberto MD Active UNISOM SLEEPTABS 25 MG ORAL TABLET one tab PO qhs DOXYLAMINE SUCCINATE (SLEEP) 88596060969 Active Myrna Roberto MD Active TYLENOL 325 MG ORAL CAPSULE PRN ACETAMINOPHEN 000 96463188 Active Brii Pacheco Active ESCITALOPRAM OXALATE 10 MG ORAL TABLET take 1 tab po qhs for mod ESCITALOPRAM OXALATE 41032904365 No Longer Active Brii Pacheco Active ALPRAZOLAM 0.25 MG ORAL TABLET 1 tablet by mouth twice a day as needed for stress/anxiety ALPRAZOLAM 48769840642 No Longer Active Brii Pacheco Active PROTONIX 40 MG ORAL TABLET DELAYED RELEASE 1 pill by m outh daily, for acid reflux PANTOPRAZOLE SODIUM 83270237950 No Longer Activ e Brii Pacheco Active DIFLUCAN 100 MG ORAL TABLET 1 tablet by mouth daily, R EPEAT 2ND DOSE IN 7 DAYS IF STILL SYMPTOMATIC FLUCONAZOLE 35390754724 No Long er Active Nilam Raida Active KEFLEX 500 MG ORAL CAPSULE 1 po tid CEPHALEXI N 76454480877 No Longer Active Tali Devi PA-C Active CONCEPT DHA 53.5-38-1 MG ORAL CAPSULE 1 tablet daily [id number]-OMEGA 3 32027355565 Active Oxana Souza LPN Active AMOXICILLIN 875 MG ORAL TABLET 1 tab by mouth twice daily 1 AMOXICILLIN 25060391414 No Longer Active Brii Russ APRN Active TUSSIONEX PENNKINETIC ER 10-8 MG/5ML ORAL SUSPENSION E XTENDED RELEASE 5ml po q12hr PRN Cough HYDROCOD POLST-CHLORPHEN POLST 5 1317448346 No Longer Active Myrna Roberto MD Active ZITHROMAX Z-EMIL 250 MG TABS Take two tablets today and then 1 tablet daily for 4 days AZITHROMYCIN 74531532914 No Longer Active Flaco Rosales MD Active GUAIFENESIN DM 400-20 MG ORAL TABLET 1 pill by mouth t wice daily, if needed for cough DEXTROMETHORPHAN-GUAIFENESIN 80860393731 No Longer Active Rich Rosales MD Active CEFDINIR 300 MG ORAL CAPSULE 1 po BID x 10 days CEFDINIR 93354558913 No Longer Active Jessica Heaton APRN Active CHERATUSSIN AC 100-10 MG/5ML ORAL SYRUP 1 tsp by mouth every 4 hours as needed for cough GUAIFENESIN-CODEINE 67108474368 No Longe r Active Jessica Heaton APRN Active TAMIFLU 75 MG ORAL CAPSULE 1 po BID x 5 days 0 OSELTAMIVIR PHOSPHATE 53882901359 No Longer Active Jose Zhong MD Activ e ZITHROMAX Z-EMIL 250 MG ORAL TABLET 2 today, then 1 daily for 4 d ays AZITHROMYCIN 44901394368 No Longer Active Arie Casper MD Active PROTONIX 40 MG ORAL TABLET DELAYED RELEASE 1 po q a.m. PANTOPRAZOLE SODIUM 94833601860 No Longer Active Arie Casper MD Active BACTRIM DS 800-160 MG ORAL TABLET 1 tab by mouth twice daily 201 05/02/30 TRIMETHOPRIM-SULFAMETHOXAZOLE 14783952032 No Longer Active R [facility] KELLIE Crawford Active NEXPLANON IMPLANT right arm subcutaneously ETONOGESTREL IMPL 86460045444 No Longer Active Brii Areboris WINDSHIELD REPAIR TECHNICIAN Active TUSSIONEX PENNKINETIC ER 10-8 MG/5ML ORAL SUSPENSION E XTENDED RELEASE 5ml po q12hr PRN Cough HYDROCOD POLST-CHLORPHEN POLST 5 3588537183 No Longer Active Brii Areboris WINDSHIELD REPAIR TECHNICIAN Active CETIRIZINE HCL 10 MG ORAL TABLET 1 po qd PRN Allergies CETIRIZINE HCL 87373475718 No Longer Active Brii Russ WINDSHIELD REPAIR TECHNICIAN Activ e PREDNISONE 20 MG ORAL TABLET 2 tabs daily for 3 days, 1 tab daily for 3 days, 1/2 tab daily for 2 days PREDNISONE 51913125847 No Longer Active Arie Casper MD Active LOMOTIL 2.5-0.025 MG ORAL TABLET 1 tab po four times a day as needed for diarrhea DIPHENOXYLATE-ATROPINE 44628692783 No Lo nger Active Arie Casper MD Active ZOLOFT 50 MG ORAL TABLET 1 tablet by mouth daily 12/08 SERTRALINE HCL 21742680546 No Longer Active Arie Casper MD Ac tive NAPROXEN 500 MG ORAL TABLET Take 1 tab BID NAPR OXEN 04110593683 No Longer Active Arie Casper MD Active CEFDINIR 300 MG ORAL CAPSULE 1 po BID x 10 days CEFDINIR 13697561397 No Longer Active Brii Russ WINDSHIELD REPAIR TECHNICIAN Active PREDNISONE 20 MG ORAL TABLET 1 tablet daily for airway inflammat ion PREDNISONE 20577515376 No Longer Active Briiarnaldo Russ WINDSHIELD REPAIR TECHNICIAN A ctive CEFDINIR 300 MG ORAL CAPSULE 1 po BID x 10 days CEFDINIR 09752799649 No Longer Active Jono Gagnon DO Active FLONASE 50 MCG/ACT NASAL SUSPENSION 1 spray each nostr il twice daily for allergies and runny nose until gone FLUT ICASONE PROPIONATE 13056037748 No Longer Active Jono Gagnon DO Active ALPRAZOLAM 0.25 MG ORAL TABLET 1 tablet by mouth every 8 hours as needed for stress ALPRAZOLAM 23753467340 No Longer Active Jono Gagnon DO Active ZITHROMAX Z-EMIL 250 MG ORAL TABLET 2 today, then 1 daily for 4 d ays AZITHROMYCIN 02012490396 No Longer Active Arie Casper MD Active PREDNISONE 20 MG ORAL TABLET 2 tabs daily for 3 days, 1 tab daily for 3 days, 1/2 tab daily for 2 days PREDNISONE 75026560480 No Longer Active Brii Russ APRN Active PREDNISONE 20 MG ORAL TABLET 1 tablet twice daily for 2 days, then 1 tablet once daily for 2 days PREDNISONE 69670460055 No Longer Active Brii Russ APRN Active PROMETHAZINE HCL 12.5 MG ORAL TABLET 1 tablet by mouth every 6 hours as needed for nausea/vomiting PROMETHAZINE HCL 75702026887 No L onger Active Jono Gagnon DO Active CITRATE OF MAGNESIA ORAL SOLUTION 1 bottle today for constipatio n MAGNESIUM CITRATE 42870293676 No Longer Active Jono Gagnon DO Active ZOFRAN 4 MG ORAL TABLET 1 TAB PO Q 6 HRS PRN NAUSEA 07/10/15 ONDANSETRON HCL 23899134964 No Longer Active Brii Russ APRN Acti ve LOMOTIL 2.5-0.025 MG ORAL TABLET 1 to 2 four times a day as needed for diarrhea DIPHENOXYLATE-ATROPINE 33437341708 No Longer Active January Russ APRN Active AMOXICILLIN 500 MG ORAL TABLET 2 tabs twice a day for 10 days 20 07/09/11 AMOXICILLIN 12862565172 No Longer Active Brii Russ WINDSHIELD REPAIR TECHNICIAN Active CYCLOBENZAPRINE HCL 10 MG ORAL TABLET 1/2 - 1 tablet b y mouth three times daily as needed for muscle spasm/pain CYCLOBENZAPRINE HCL 34665098553 No Longer Active Arie Casper MD Active LOMOTIL 2.5-0.025 MG ORAL TABLET 1 to 2 four times a day as needed for diarrhea DIPHENOXYLATE-ATROPINE 21940960088 No Longer Active Fozia Casper MD Active MACROBID 100 MG ORAL CAPSULE 1 cap by mouth twice daily NITROFURANTOIN MONOHYD MACRO 41531718494 No Longer Active Arie Casper MD Active ZYRTEC ALLERGY 10 MG ORAL CAPSULE 1 po qd CE TIRIZINE HCL 03113262827 No Longer Active Arie Casper MD Active AZITHROMYCIN 250 MG ORAL TABLET 2 po qd x 1 day, then 1 po q d x 4 days AZITHROMYCIN 61452346568 No Longer Active Waynellarlen murilloll WINDSHIELD REPAIR TECHNICIAN Active PREDNISONE 20 MG ORAL TABLET 2 tabs daily for 3 days, 1 tab daily for 3 days, 1/2 tab daily for 2 days PREDNISONE 89478559870 No Longer Active Jillarlen Alcazarl WINDSHIELD REPAIR TECHNICIAN Active PROMETHAZINE HCL 25 MG ORAL TABLET 1 four times a day as nee ded for vomiting PROMETHAZINE HCL 98205571269 No Longer Active Myrna Roberto MD Active BACTRIM DS 800-160 MG ORAL TABLET 1 twice a day 05/30 SULFAMETHOXAZOLE-TRIMETHOPRIM 14295003412 No Longer Active Myrna Roberto MD Active VICKS DAYQUIL SEVERE COLD/FLU TABLET 1 tab every 6 hours prn 201 02/22/17 [id number] TABS 14796884258 No Longer Active Chris Roberto MD Active GUAIFENESIN-CODEINE 100-10 MG/5ML ORAL SYRUP 2 tsp every 6 hours prn GUAIFENESIN-CODEINE 84683875546 No Longer Active Myrna Roberto MD Active NAPROXEN 500 MG ORAL TABLET one tab PO BID NAPR OXEN 96892322126 No Longer Active Myrna Roberto MD Active AUGMENTIN 875-125 MG ORAL TABLET 1 tab by mouth twice daily with food AMOXICILLIN-POT CLAVULANATE 41481203140 No Longer Act zaid Liliana Estrada MD PhD Active AMOXICILLIN 500 MG ORAL CAPSULE 1 tab by mouth 3 times daily 201 02/21/05 AMOXICILLIN 76347737919 No Longer Active Liliana Estrada MD PhD Active TESSALON PERLES 100 MG ORAL CAPSULE 1 tablet by mouth 3 times da cory BENZONATATE 49637151982 No Longer Active Liliana Estrada MD PhD Active FLAGYL 500 MG ORAL TABLET 1 tablet by mouth two times daily 2014 METRONIDAZOLE 10710924050 No Longer Active Nilam Plattida Ac tive ZITHROMAX 250 MG ORAL TABLET 2 po today, then 1 po q days 2-5 20 06/08/16 AZITHROMYCIN 33801554388 No Longer Active Arie Casper MD Active VITAMINS 0.8 MG ORAL TABLET take 1 tab po qday [id number] 84988691219 No Longer Active Arie Casper MD Active IBUPROFEN 800 MG ORAL TABLET take one po Q 8 hours 201 02/01/16 IBUPROFEN 71314132622 No Longer Active Arie Casper MD Acti ve [facility] TUSSIN COUGH/COLD CF 5-10-100 MG/5ML ORAL LIQUID 2 teasp oons every 4 hours [id number] 84972638949 No Longer Active Blaine Casper MD Active COMTREX COLD/COUGH DAY/NITE MS 5-2-10-325 MG ORAL 2 caps deja ry 4 hours [id number] 54778186163 No Longer Active Landon Casper MD Active CHLORASEPTIC MAX SORE THROAT 15-10 MG MOUTH/THROAT LOZENGE 1 every 2 hours prn BENZOCAINE-MENTHOL 33489637616 No Longer Active Arie Casper MD Active PREDNISONE 20 MG ORAL TABLET 2 tabs daily for 3 days, 1 tab daily for 3 days, 1/2 tab daily for 2 days PREDNISONE 22029765246 No Longer Active Jose Zhong MD Active AZITHROMYCIN 250 MG ORAL TABLET 2 po qd x 1 day, then 1 po q d x 4 days AZITHROMYCIN 62248812761 No Longer Active Jose Mcwilliams MD Active ZOFRAN ODT 4 MG ORAL TABLET DISINTEGRATING 1 po q6hr PRN Nausea ONDANSETRON 13604920069 No Longer Active Rich Rosales MD Active ZOFRAN 4 MG ORAL TABLET 1 tablet every 4 hours ONDANSETRON HCL 03627249022 No Longer Active Rich Rosales MD Activ e MUCINEX 600 MG ORAL TABLET EXTENDED RELEASE 12 HOUR Ta ke 1-2 tablets every 12 hours GUAIFENESIN 53629863963 No Longer Active Rich Rosales MD Active BACTRIM 400-80 MG ORAL TABLET take one po BID SULFAMETHOXAZOLE-TRIMETHOPRIM 19379291053 No Longer Active Abelardo HERNANDEZ Active AZITHROMYCIN 500 MG ORAL TABLET 1 PO q day x 6 days 20 03/02/23 AZITHROMYCIN 70774716664 No Longer Active Tin HERNANDEZ Activ e ZITHROMAX 250 MG ORAL TABLET 2 po today, then 1 po q days 2-5 20 10/03/08 AZITHROMYCIN 23444104096 No Longer Active Arie Casper MD Active ZITHROMAX 250 MG ORAL TABLET 2 po today, then 1 po q days 2-5 20 09/23/25 AZITHROMYCIN 32575768501 No Longer Active Arie Casper MD Active AMOXICILLIN 500 MG ORAL CAPSULE 1 tab by mouth 3 times daily 201 11/24/09 AMOXICILLIN 08531944834 No Longer Active Arie Casper MD Active BACTRIM DS 800-160 MG ORAL TABLET 1 tab by mouth twice daily 201 11/03/14 TRIMETHOPRIM-SULFAMETHOXAZOLE 12294710024 No Longer Active Fozia Casper MD Active AMOXICILLIN 500 MG ORAL TABLET take 1 tab po TID 08/05 AMOXICILLIN 81055112352 No Longer Active Arie Casper MD Acti ve BACTRIM DS 800-160 MG ORAL TABLET 1 tab by mouth twice daily 201 11/03/14 BACTRIM DS 800-160 MG ORAL TABLET 256492 TRIMETHOPRIM-SULFAMETHOXAZOLE Inactive MUCINEX 600 MG ORAL TABLET EXTENDED RELEASE 12 HOUR Ta ke 1-2 tablets every 12 hours MUCINEX 600 MG ORAL TABLET EXTENDED RELEA SE 12 HOUR GUAIFENESIN Inactive ZOFRAN 4 MG ORAL TABLET 1 tablet every 4 hours ZOFRAN 4 MG ORAL TABLET 774047 ONDANSETRON HCL Inactive ZOFRAN ODT 4 MG [...] COLD/COUGH DAY/NITE MS 5-2-10-325 MG ORA L [id number] Inactive [facility] TUSSIN COUGH/COLD CF 5-10-100 MG/5ML ORAL LIQUID 2 teasp oons every 4 hours [facility] TUSSIN COUGH/COLD CF 5-10-100 MG/5ML ORAL LI QUID [id number] Inactive IBUPROFEN 800 MG ORAL TABLET take one po Q 8 hours 201 02/01/16 IBUPROFEN 800 MG ORAL TABLET 695416 IBUPROFEN Inactive VITAMINS 0.8 MG ORAL TABLET take 1 tab po qday VITAMINS 0.8 MG ORAL TABLET [id number] E-FA Inactive TESSALON PERLES 100 MG ORAL CAPSULE 1 tablet by mouth 3 times da cory TESSALON PERLES 100 MG ORAL CAPSULE 726000 BENZONATATE Inactive AMOXICILLIN 500 MG ORAL CAPSULE 1 tab by mouth 3 times daily 201 02/21/05 AMOXICILLIN 500 MG ORAL CAPSULE 701704 AMOXICILLIN Inactive GUAIFENESIN-CODEINE 100-10 MG/5ML ORAL SYRUP 2 tsp every 6 hours prn GUAIFENESIN-CODEINE 100-10 MG/5ML ORAL SYRUP 785575 GUAIFENESIN-CODEINE Inactive VICKS DAYQUIL SEVERE COLD/FLU TABLET 1 tab every 6 hours prn 201 02/22/17 VICKS DAYQUIL SEVERE COLD/FLU TABLET PHENYLEPHRI AY-[id number]-EM-APAP TABS Inactive BACTRIM DS 800-160 MG ORAL TABLET 1 twice a day 05/30 BACTRIM DS 800-160 MG ORAL TABLET 537278 SULFAMETHOXAZOLE-TRIMETHOPRIM Inactiv e PROMETHAZINE HCL 25 MG ORAL TABLET 1 four times a day as nee ded for vomiting PROMETHAZINE HCL 25 MG ORAL TABLET 841295 PROMETHAZINE HCL Inactive ZYRTEC ALLERGY 10 MG ORAL CAPSULE 1 po qd ZYRTEC ALLERGY 10 MG ORAL CAPSULE CETIRIZINE HCL Inactive MACROBID 100 MG ORAL CAPSULE 1 cap by mouth twice daily MACROBID 100 MG ORAL CAPSULE 1853875 NITROFURANTOIN MONOHYD MACRO In active LOMOTIL 2.5-0.025 MG ORAL TABLET 1 to 2 four times a day as needed for diarrhea LOMOTIL 2.5-0.025 MG ORAL TABLET 4868450 DIPHENOXYLATE-ATROPINE Inactive CYCLOBENZAPRINE HCL 10 MG ORAL TABLET 1/2 - 1 tablet b y mouth three times daily as needed for muscle spasm/pain CYCLOBEN ZAPRINE HCL 10 MG ORAL TABLET 522267 CYCLOBENZAPRINE HCL Inactive AMOXICILLIN 500 MG ORAL TABLET 2 tabs twice a day for 10 days 20 07/09/11 AMOXICILLIN 500 MG ORAL TABLET 956271 AMOXICILLIN I nactive LOMOTIL 2.5-0.025 MG ORAL TABLET 1 to 2 four times a day as needed for diarrhea LOMOTIL 2.5-0.025 MG ORAL TABLET 0224144 DIPHENOXYLATE-ATROPINE Inactive ZOFRAN 4 MG ORAL TABLET 1 TAB PO Q 6 HRS PRN NAUSEA 20 07/10/15 ZOFRAN 4 MG ORAL TABLET 622976 ONDANSETRON HCL Inactive CITRATE OF MAGNESIA ORAL SOLUTION 1 bottle today for constipatio n CITRATE OF MAGNESIA ORAL SOLUTION 6420421 MAGNESIUM CITR ATE Inactive PROMETHAZINE HCL 12.5 MG ORAL TABLET 1 tablet by mouth every 6 hours as needed for nausea/vomiting PROMETHAZINE HCL 12.5 MG ORA L TABLET 175307 PROMETHAZINE HCL Inactive PREDNISONE 20 MG ORAL TABLET 1 tablet twice daily for 2 days, then 1 tablet once daily for 2 days PREDNISONE 20 MG ORAL TABLET 610217 PREDNISONE Inactive ALPRAZOLAM 0.25 MG ORAL TABLET 1 tablet by mouth every 8 hours as needed for stress ALPRAZOLAM 0.25 MG ORAL TABLET 565807 ALPRA ZOLAM Inactive FLONASE 50 MCG/ACT NASAL SUSPENSION 1 spray each nostr il twice daily for allergies and runny nose until gone FLON ASE 50 MCG/ACT NASAL SUSPENSION FLUTICASONE PROPIONATE Inactive PREDNISONE 20 MG ORAL TABLET 1 tablet daily for airway inflammat ion PREDNISONE 20 MG ORAL TABLET 905192 PREDNISONE Mobile ctive NAPROXEN 500 MG ORAL TABLET Take 1 tab BID NAPROXEN 500 MG ORAL TABLET 250498 NAPROXEN Inactive ZOLOFT 50 MG ORAL TABLET 1 tablet by mouth daily 12/08 ZOLOFT 50 MG ORAL TABLET 719591 SERTRALINE HCL Inactive LOMOTIL 2.5-0.025 MG ORAL TABLET 1 tab po four times a day as needed for diarrhea LOMOTIL 2.5-0.025 MG ORAL TABLET 9237766 DIPHENOXYLATE-ATROPINE Inactive CETIRIZINE HCL 10 MG ORAL TABLET 1 po qd PRN Allergies CETIRIZINE HCL 10 MG ORAL TABLET 9524148 CETIRIZINE HCL Inactiv e TUSSIONEX PENNKINETIC ER 10-8 MG/5ML ORAL SUSPENSION E XTENDED RELEASE 5ml po q12hr PRN Cough TUSSIONEX PENNKINETI C ER 10-8 MG/5ML ORAL SUSPENSION EXTENDED RELEASE HYDROCOD POLST-CHLORPHEN POLST I nactive NEXPLANON IMPLANT right arm subcutaneously NEXPLANON IMPLANT ETONOGESTREL IMPL Inactive PROTONIX 40 MG ORAL TABLET DELAYED RELEASE 1 po q a.m. PROTONIX 40 MG ORAL TABLET DELAYED RELEASE 435830 PANTOPRAZOLE SODI UM Inactive CHERATUSSIN AC 100-10 MG/5ML ORAL SYRUP 1 tsp by mouth every 4 hours as needed for cough CHERATUSSIN AC 100-10 MG/5ML ORAL SYRUP 9 48548 GUAIFENESIN-CODEINE Inactive GUAIFENESIN DM 400-20 MG ORAL [...] tid K EFLEX 500 MG ORAL CAPSULE 533349 CEPHALEXIN Inactive DIFLUCAN 100 MG ORAL TABLET 1 tablet by mouth daily, R EPEAT 2ND DOSE IN 7 DAYS IF STILL SYMPTOMATIC DIFLUCAN 100 MG ORAL TABLET 00154 8 FLUCONAZOLE Inactive PROTONIX 40 MG ORAL TABLET DELAYED RELEASE 1 pill by m outh daily, for acid reflux PROTONIX 40 MG ORAL TABLET DELAYED RELEAS E 702472 PANTOPRAZOLE SODIUM Inactive ALPRAZOLAM 0.25 MG ORAL TABLET 1 tablet by mouth twice a day as needed for stress/anxiety ALPRAZOLAM 0.25 MG ORAL TABLET 131643 ALPRAZOLAM Inactive ESCITALOPRAM OXALATE 10 MG ORAL TABLET take 1 tab po qhs for mod ESCITALOPRAM OXALATE 10 MG ORAL TABLET 831698 ESCITALOP JO OXALATE Inactive AMOXICILLIN 500 MG ORAL TABLET take 1 tab po TID 08/05 AMOXICILLIN 500 MG ORAL TABLET 772738 AMOXICILLIN Inactive AMOXICILLIN 500 MG ORAL CAPSULE 1 tab by mouth 3 times daily 201 11/24/09 AMOXICILLIN 500 MG ORAL CAPSULE 955864 AMOXICILLIN Inactive ZITHROMAX 250 MG ORAL TABLET 2 po today, then 1 po q days 2-5 20 09/23/25 ZITHROMAX 250 MG ORAL TABLET 155498 AZITHROMYCIN Arlen ctive ZITHROMAX 250 MG ORAL TABLET 2 po today, then 1 po q days 2-5 20 10/03/08 ZITHROMAX 250 MG ORAL TABLET 591554 AZITHROMYCIN Arlen ctive AZITHROMYCIN 500 MG ORAL TABLET 1 PO q day x 6 days 20 03/02/23 AZITHROMYCIN 500 MG ORAL TABLET 104323 AZITHROMYCIN Inactive BACTRIM 400-80 MG ORAL TABLET take one po BID BACTRIM 400- 80 MG ORAL TABLET 868534 SULFAMETHOXAZOLE-TRIMETHOPRIM Inactive AZITHROMYCIN 250 MG ORAL TABLET 2 po qd x 1 day, then 1 po q d x 4 days AZITHROMYCIN 250 MG ORAL TABLET 162528 AZITHROMY ALLISON Inactive PREDNISONE 20 MG ORAL TABLET 2 tabs daily for 3 days, 1 tab daily for 3 days, 1/2 tab daily for 2 days PREDNISONE 20 MG ORAL T ABLET 126270 PREDNISONE Inactive ZITHROMAX 250 MG ORAL TABLET 2 po today, then 1 po q days 2-5 20 06/08/16 ZITHROMAX 250 MG ORAL TABLET 076624 AZITHROMYCIN Arlen ctive FLAGYL 500 MG ORAL TABLET 1 tablet by mouth two times daily 2014 FLAGYL 500 MG ORAL TABLET 617419 METRONIDAZOLE Inacti ve AUGMENTIN 875-125 MG ORAL TABLET 1 tab by mouth twice daily with food AUGMENTIN 875-125 MG ORAL TABLET AMOXICIL ELSA-POT CLAVULANATE Inactive NAPROXEN 500 MG ORAL TABLET one tab PO BID NAPROXEN 500 MG ORAL TABLET 297448 NAPROXEN Inactive PREDNISONE 20 MG ORAL TABLET 2 tabs daily for 3 days, 1 tab daily for 3 days, 1/2 tab daily for 2 days PREDNISONE 20 MG ORAL T ABLET 404165 PREDNISONE Inactive AZITHROMYCIN 250 MG ORAL TABLET 2 po qd x 1 day, then 1 po q d x 4 days AZITHROMYCIN 250 MG ORAL TABLET 444948 AZITHROMY ALLISON Inactive PREDNISONE 20 MG ORAL TABLET 2 tabs daily for 3 days, 1 tab daily for 3 days, 1/2 tab daily for 2 days PREDNISONE 20 MG ORAL T ABLET 429593 PREDNISONE Inactive ZITHROMAX Z-EMIL 250 MG ORAL TABLET 2 today, then 1 daily for 4 d ays ZITHROMAX Z-EMIL 250 MG ORAL TABLET 253864 AZITHROMYCIN Inactive CEFDINIR 300 MG ORAL CAPSULE 1 po BID x 10 days 12/18 CEFDINIR 300 MG ORAL CAPSULE 20030127 CEFDINIR Inactive CEFDINIR 300 MG ORAL CAPSULE 1 po BID x 10 days CEFDINIR 300 MG ORAL CAPSULE 608524 CEFDINIR Inactive PREDNISONE 20 MG ORAL TABLET 2 tabs daily for 3 days, 1 tab daily for 3 days, 1/2 tab daily for 2 days PREDNISONE 20 MG ORAL T ABLET 418398 PREDNISONE Inactive BACTRIM DS 800-160 MG ORAL TABLET 1 tab by mouth twice daily 201 05/02/30 BACTRIM DS 800-160 MG ORAL TABLET 315301 TRIMETHOPRIM-SULFAMETHOXAZOLE Inactive ZITHROMAX Z-EMIL 250 MG ORAL TABLET 2 today, then 1 daily for 4 d ays ZITHROMAX Z-EMIL 250 MG ORAL TABLET 451271 AZITHROMYCIN Inactive TAMIFLU 75 MG ORAL CAPSULE 1 po BID x 5 days 0 TAMIFLU 75 MG ORAL CAPSULE 384858 OSELTAMIVIR PHOSPHATE Inactive CEFDINIR 300 MG ORAL CAPSULE 1 po BID x 10 days 01/03 CEFDINIR 300 MG ORAL CAPSULE 479466 CEFDINIR Inactive ZITHROMAX Z-EMIL 250 MG TABS Take two tablets today and then 1 tablet daily for 4 days ZITHROMAX Z-EMIL 250 MG TABS 477510 AZITHROM YCIN Inactive AMOXICILLIN 875 MG ORAL TABLET 1 tab by mouth twice daily AMOXICILLIN 875 MG ORAL TABLET 634649 AMOXICILLIN Inactive Advance Directives Directive Description Start [...] 11 .0-15.0 platelet count 280 THOUSAND/UL 10*3/mm3 892-152 1258/02/18 mean platelet volume 11.6 fL 7.5-12.5 Lab [...] 11 .6-14.8 platelet count 245 10^3/MM^3 10*3/mm3 570-839 3435/09/27 leukocyte count, blood 7.6 10^3/MM^3 10*3/mm3 4.6-10.2 [...] (L) - Chemistry sodium, serum 138 mmol/L 628-586 9321/04/11 carbon dioxide, venous blood 27.1 mmol/L 21.0-32 [...] mg/dL Encounters Code Encounter Date Provider Facility CPT-70402 Level 4 Est. Patient 16:18:17 [employer]GET[employer] WORKER Myrna maldonado MD [facility] CPT-49245 Level 4 Est. Patient 16:39:44 [employer]GETABLE [employer]ORY WORKER Jose Zhong MD [facility] CPT-39875 [id number] Vst-Est Level IV 13:45:38 C Talikiya Devi PA-C [facility] CPT-89708 [id number] Vst-Est Level III 09:41:31 CDT Arie Casper MD [facility]-29767 [id number] Vst-Est Level III 18:20:11 CDT Me lobito Russ [facility]-49661 [id number] Vst-Est Level III 17:21:41 CDT Me lobito Russ [facility]-91874 [id number] Vst-Est Level IV 13:30:22 C DT Arie Casper MD [facility] CPT-95699 Level 4 Est. Patient 13:05:26 CDT Myrna maldonado MD [facility]-36321 [id number] Vst-Est Level IV 20:50:21 C DT Arie Casper MD [facility] CPT-72845 Level 3 Est. Patient 11:49:34 [employer] AND [employer]GETABLE FACTORY WORKER Jessica boyd [facility] CPT-16264 Level 3 Est. Patient 14:55:50 [employer] AND [employer]GETABLE FACTORY WORKER Jose Zhong MD [facility] CPT-20565 Level 3 Est. Patient 10:21:41 [employer] AND [employer]GETABLE FACTORY WORKER Arie mcqueen MD [facility] CPT-10592 Level 3 Est. Patient 11:35:15 [employer] AND [employer]GETABLE FACTORY WORKER Arie mcqueen MD [facility] CPT-52519 Level 3 Est. Patient 15:40:28 CDT Brii escalante [facility] CPT-66143 Level 3 Est. Patient 16:40:36 CDT Arie mcqueen MD [facility] CPT-31965 Level 4 Est. Patient 15:29:22 [employer] AND [employer]GETABLE FACTORY WORKER Arie mcqueen MD [facility]-52737 Level 3 Est. 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 Patient 12:08:40 FRUIT AND VEGETABLE FACTORY WORKER Brii Are ll [facility] CPT-98282 Level 3 Est. Patient 09:24:42 CDT Brii Are ll [facility] CPT-21796 Level 3 Est. Patient 09:12:56 CDT Arie mcqueen MD [facility]-58015 Level 3 Est. Patient 16:40:54 CDT Jose Zhong MD [facility] CPT-51061 Level 2 Est. Patient 13:01:13 CDT Brii Are ll [facility] CPT-04488 Level 3 Est. Patient 11:55:30 [employer]GETABLE FACTORY WORKER Jono black [facility] CPT-81474 Level 3 Est. 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 Patient 16:25:33 [employer] AND [employer] Rich Rosales MD [facility] CPT-39541 Level 3 Est. Patient 20:33:55 CDT Arie mcqueen MD [facility] CPT-63659 Level 3 Est. Patient 14:18:20 CDT Rich Rosales MD [facility] CPT-78892 Level 4 Est. Patient 09:34:31 CDT Arie mcqueen MD [facility]-67783 Level 3 Est. Patient 09:08:55 [employer] Liliana vincent MD, PhD [facility]-63480 Level 3 Est. Patient 16:44:07 [employer] Arie mcqueen MD [facility] CPT-84589 Level 3 Est. Patient 10:44:27 CDT Arie mcqueen MD [facility] CPT-29047 Level 3 Est. Patient 08:55:41 CDT Jose Zhong MD [facility] [facility] CPT-06792 Level 3 Est. Patient 18:37:31 CDT Liliana vincent MD PhD [facility] CPT-19713 Level 3 Est. Patient 14:28:23 CDT Abelardo marroquin PA [facility] CPT-53882 Level 3 Est. Patient 15:18:13 [employer] Arie mcqueen MD [facility] CPT-89582 Level 3 Est. Patient 10:11:29 [employer] Arie mcqueen MD [facility] CPT-84794 Level 3 Est. Patient 10:55:57 [employer] Jono black DO [facility] CPT-19553 Level 3 Est. Patient 17:29:05 CDT Arie mcqueen MD [facility] Procedures Code Procedure Name Date Entry Date Standard Desc ription CPT-EVST Evisit 13:43:28 CDT CPT-26746 Sono OB transvag XRAY USE ONLY 17:12:53 CS T CPT-68557 Sono OB transvag XRAY USE ONLY 17:11:12 CS T CPT-91324 UHCG Urine - MARC ONLY 12:13:59 [employer] 12/11 CPT-35044 Spec Collection and Handling Fee 12:13:[address] CPT-00546 Visit 12:13:59 [employer] CPT-15582 First Vx - Ix admin via ID I M or jet injects without counseling by physician 13:00:15 [employer] CPT-92171 Flulaval Intramuscular Injectable 13:00:15 [employer] CPT-20271 Urine Dip (Floor Use Only) 12:20:20 [employer]ER 201 06/03/24 CPT-28453 Sono Soft Tissue Head and Neck - XRAY US E ONLY 17:10:14 CDT CPT-03389 Ear Wash with irrigation 17:21:41 CDT 07/04 CPT-50336 Nexplanon Removal 15:40:28 CDT CPT-14394 Sono transvag pelvis non OB uterus ovari es cervix - XRAY USE ONLY 08:58:14 [employer] CPT-90751 UA w micro - LAB USE ONLY 16:04:56 [employer] 2015 CPT-37631 Wet Prep/GEN - LAB USE ONLY 16:04:56 [employer] 20 08/10/29 CPT-78546 First Vx - Ix admin via ID I M or jet injects without counseling by physician 16:57:10 CDT CPT-73634 Fluzone Preservative Free Intramuscular Suspension 16:57:10 CDT CPT-J0696 Rocephin 1000 mg (Ceftriaxone) 11:49:23 CDT CPT-J1040 Depo Medrol 80 mg (Methyl Prednisolone A cetate) 11:49:23 CDT CPT-J1100 Decadron 8mg (Dexamethasone) 11:49:23 CDT 2 CPT-44562 Abx/Therapy Injection 11:49:23 CDT CPT-41483 Abx/Therapy Injection 11:49:23 CDT CPT-64156 Abd compl w upright 09:07:26 [employer] CPT-57375 Ear Wash 16:12:47 [employer] CPT-OV Office Visit 11:12:01 CDT CPT-OV Office Visit 15:30:23 CDT CPT-14254 Sono pelvis non OB uterus ovaries cervix 15:50:44 CDT CPT-96288 Hand comp min 3V 16:42:32 CDT CPT-17095 Abd compl w upright 12:17:01 CDT CPT-67074 Nexplanon Placement 15:07:39 [employer] CPT-31672 Removal of IUD 15:07:39 [employer] CPT-59133 TB Tubersol 12:09:32 CDT CPT-79695 TB Tubersol 13:55:43 CDT
--- OUTSIDE RECORDS SUMMARY | 2020-03-03 06:43 | XMS REPORT | Clinical Summary ---
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 Need for prophylactic vaccin ation and inoculation [...] ICD-V18.0 Inactive Jose Zhong MD 201 01/29/08 CYSTITIS ICD-595.9 Inactive Liliana Estrada MD Ph D SINUSITIS ICD-473.9 Inactive Liliana Estrada MD Ph D CONTRACEPTIVE MANAGEMENT ICD-V25.09 Inactive Myrna Roberto MD IUD removal ICD-V25.42 Inactive Liliana Estrada MD PhD Abdominal pain ICD-789.00 Inactive Jose monreal MD Diarrhea ICD-787.91 Inactive Jose Marcelo Thumb pain, right ICD-729.5 Inactive Jose pelayo MD ACUTE FRONTAL SINUSITIS ICD-461.1 Inactive Ronnie Estrada MD PhD Symptom, cough ICD-786.2 Inactive Liliana Estrada MD [...] MD Sinusitis ICD-461.9 Inactive Jose Zhong MD Sinusitis, acute ICD-461.9 Inactive Liliana cheema MD PhD Fever ICD-780.60 Inactive Liliana Estrada MD PhD 20 08/12/16 Cerumen impaction, right ICD-380.4 Inactive Jose Zhong [...] 3-4 times per day 12/11 PYRIDOXINE HCL 79533975713 Active Myrna Roberto MD Active UNISOM SLEEPTABS 25 MG ORAL TABLET one tab PO qhs DOXYLAMINE SUCCINATE (SLEEP) 52682005874 Active Myrna Roberto MD Active TYLENOL 325 MG ORAL CAPSULE PRN ACETAMINOPHEN 000 15138552 Active Brii Pacheco Active ESCITALOPRAM OXALATE 10 MG ORAL TABLET take 1 tab po qhs for mod ESCITALOPRAM OXALATE 68513824859 No Longer Active Brii Pacheco Active ALPRAZOLAM 0.25 MG ORAL TABLET 1 tablet by mouth twice a day as needed for stress/anxiety ALPRAZOLAM 26430192127 No Longer Active Brii Pacheco Active PROTONIX 40 MG ORAL TABLET DELAYED RELEASE 1 pill by m outh daily, for acid reflux PANTOPRAZOLE SODIUM 55170095720 No Longer Activ e Brii Tara Active DIFLUCAN 100 MG ORAL TABLET 1 tablet by mouth daily, R EPEAT 2ND DOSE IN 7 DAYS IF STILL SYMPTOMATIC FLUCONAZOLE 43134456793 No Long er Active Nilam Raida Active KEFLEX 500 MG ORAL CAPSULE 1 po tid CEPHALEXI N 87450993733 No Longer Active Tali Devi PA-C Active CONCEPT DHA 53.5-38-1 MG ORAL CAPSULE 1 tablet daily [id number]-[id number]-FA-OMEGA 3 00712388463 Active Oxana Souza LPN Active AMOXICILLIN 875 MG ORAL TABLET 1 tab by mouth twice daily 1 AMOXICILLIN 79583742537 No Longer Active Brii Russ APRN Active TUSSIONEX PENNKINETIC ER 10-8 MG/5ML ORAL SUSPENSION E XTENDED RELEASE 5ml po q12hr PRN Cough HYDROCOD POLST-CHLORPHEN POLST 5 1777696150 No Longer Active Myrna Roberto MD Active ZITHROMAX Z-EMIL 250 MG TABS Take two tablets today and then 1 tablet daily for 4 days AZITHROMYCIN 94387842243 No Longer Active Flaco Rosales MD Active GUAIFENESIN DM 400-20 MG ORAL TABLET 1 pill by mouth t wice daily, if needed for cough DEXTROMETHORPHAN-GUAIFENESIN 40428815639 No Longer Active Rich Rosales MD Active CEFDINIR 300 MG ORAL CAPSULE 1 po BID x 10 days CEFDINIR 18662778788 No Longer Active Jessica Heaton APRN Active CHERATUSSIN AC 100-10 MG/5ML ORAL SYRUP 1 tsp by mouth every 4 hours as needed for cough GUAIFENESIN-CODEINE 99046946212 No Longe r Active Jessica Heaton APRN Active TAMIFLU 75 MG ORAL CAPSULE 1 po BID x 5 days 0 OSELTAMIVIR PHOSPHATE 03354711076 No Longer Active Jose Zhong MD Activ e ZITHROMAX Z-EMIL 250 MG ORAL TABLET 2 today, then 1 daily for 4 d ays AZITHROMYCIN 36470814678 No Longer Active Arie Casper MD Active PROTONIX 40 MG ORAL TABLET DELAYED RELEASE 1 po q a.m. PANTOPRAZOLE SODIUM 07174086637 No Longer Active Arie Casper MD Active BACTRIM DS 800-160 MG ORAL TABLET 1 tab by mouth twice daily 201 05/02/30 TRIMETHOPRIM-SULFAMETHOXAZOLE 38165511950 No Longer Active R KELLIE Sandoval Active NEXPLANON IMPLANT right arm subcutaneously ETONOGESTREL IMPL 82609055345 No Longer Active Brii Russ APRN Active TUSSIONEX PENNKINETIC ER 10-8 MG/5ML ORAL SUSPENSION E XTENDED RELEASE 5ml po q12hr PRN Cough HYDROCOD POLST-CHLORPHEN POLST 5 2942265512 No Longer Active Brii Russ APRN Active CETIRIZINE HCL 10 MG ORAL TABLET 1 po qd PRN Allergies CETIRIZINE HCL 89081712127 No Longer Active Brii Russ APRN Activ e PREDNISONE 20 MG ORAL TABLET 2 tabs daily for 3 days, 1 tab daily for 3 days, 1/2 tab daily for 2 days PREDNISONE 22964234190 No Longer Active Arie Casper MD Active LOMOTIL 2.5-0.025 MG ORAL TABLET 1 tab po four times a day as needed for diarrhea DIPHENOXYLATE-ATROPINE 98976340815 No Lo nger Active Arie Casper MD Active ZOLOFT 50 MG ORAL TABLET 1 tablet by mouth daily 12/08 SERTRALINE HCL 50619924452 No Longer Active Arie Casper MD Ac tive NAPROXEN 500 MG ORAL TABLET Take 1 tab BID NAPR OXEN 77567027319 No Longer Active Arie Casper MD Active CEFDINIR 300 MG ORAL CAPSULE 1 po BID x 10 days CEFDINIR 85223509697 No Longer Active Brii Russ APRN Active PREDNISONE 20 MG ORAL TABLET 1 tablet daily for airway inflammat ion PREDNISONE 28512457557 No Longer Active Brii Russ APRN A ctive CEFDINIR 300 MG ORAL CAPSULE 1 po BID x 10 days CEFDINIR 92895986476 No Longer Active Jono Gagnon DO Active FLONASE 50 MCG/ACT NASAL SUSPENSION 1 spray each nostr il twice daily for allergies and runny nose until gone FLUT ICASONE PROPIONATE 00787861426 No Longer Active Jono Gagnon DO Active ALPRAZOLAM 0.25 MG ORAL TABLET 1 tablet by mouth every 8 hours as needed for stress ALPRAZOLAM 73420410912 No Longer Active Jono Gagnon DO Active ZITHROMAX Z-EMIL 250 MG ORAL TABLET 2 today, then 1 daily for 4 d ays AZITHROMYCIN 33208060172 No Longer Active Arie Casper MD Active PREDNISONE 20 MG ORAL TABLET 2 tabs daily for 3 days, 1 tab daily for 3 days, 1/2 tab daily for 2 days PREDNISONE 66581949493 No Longer Active Brii Areboris COKE WHEELER Active PREDNISONE 20 MG ORAL TABLET 1 tablet twice daily for 2 days, then 1 tablet once daily for 2 days PREDNISONE 31468847469 No Longer Active Brii Russ APRN Active PROMETHAZINE HCL 12.5 MG ORAL TABLET 1 tablet by mouth every 6 hours as needed for nausea/vomiting PROMETHAZINE HCL 54417105161 No L onger Active Jono Gagnon DO Active CITRATE OF MAGNESIA ORAL SOLUTION 1 bottle today for constipatio n MAGNESIUM CITRATE 90019441518 No Longer Active Jono Gagnon DO Active ZOFRAN 4 MG ORAL TABLET 1 TAB PO Q 6 HRS PRN NAUSEA 07/10/15 ONDANSETRON HCL 29025345994 No Longer Active Brii Arell [employer]KE WHEELER Acti ve LOMOTIL 2.5-0.025 MG ORAL TABLET 1 to 2 four times a day as needed for diarrhea DIPHENOXYLATE-ATROPINE 87157509666 No Longer Active January Russ APRN Active AMOXICILLIN 500 MG ORAL TABLET 2 tabs twice a day for 10 days 20 07/09/11 AMOXICILLIN 54669647414 No Longer Active Brii Arell [employer]KE WHEELER Active CYCLOBENZAPRINE HCL 10 MG ORAL TABLET 1/2 - 1 tablet b y mouth three times daily as needed for muscle spasm/pain CYCLOBENZAPRINE HCL 81517721576 No Longer Active Arie Casper MD Active LOMOTIL 2.5-0.025 MG ORAL TABLET 1 to 2 four times a day as needed for diarrhea DIPHENOXYLATE-ATROPINE 40499144345 No Longer Active Fozia Casper MD Active MACROBID 100 MG ORAL CAPSULE 1 cap by mouth twice daily NITROFURANTOIN MONOHYD MACRO 14458337901 No Longer Active Arie Casper MD Active ZYRTEC ALLERGY 10 MG ORAL CAPSULE 1 po qd CE TIRIZINE HCL 22651067892 No Longer Active Arie Casper MD Active AZITHROMYCIN 250 MG ORAL TABLET 2 po qd x 1 day, then 1 po q d x 4 days AZITHROMYCIN 22965651912 No Longer Active Waynellarlen salgado COKE WHEELER Active PREDNISONE 20 MG ORAL TABLET 2 tabs daily for 3 days, 1 tab daily for 3 days, 1/2 tab daily for 2 days PREDNISONE 16571989359 No Longer Active Waynellarlen Heaton COKE WHEELER Active PROMETHAZINE HCL 25 MG ORAL TABLET 1 four times a day as nee ded for vomiting PROMETHAZINE HCL 01797731766 No Longer Active Myrna Roberto MD Active BACTRIM DS 800-160 MG ORAL TABLET 1 twice a day 05/30 SULFAMETHOXAZOLE-TRIMETHOPRIM 54060640602 No Longer Active Myrna Roberto MD Active VICKS DAYQUIL SEVERE COLD/FLU TABLET 1 tab every 6 hours prn 201 02/22/17 [id number]-APAP TABS 63043275104 No Longer Active K fany Roberto MD Active GUAIFENESIN-CODEINE 100-10 MG/5ML ORAL SYRUP 2 tsp every 6 hours prn GUAIFENESIN-CODEINE 68583032093 No Longer Active Myrna Roberto MD Active NAPROXEN 500 MG ORAL TABLET one tab PO BID NAPR OXEN 98047667700 No Longer Active Myrna Roberto MD Active AUGMENTIN 875-125 MG ORAL TABLET 1 tab by mouth twice daily with food AMOXICILLIN-POT CLAVULANATE 35432718886 No Longer Act zaid Liliana Estrada MD PhD Active AMOXICILLIN 500 MG ORAL CAPSULE 1 tab by mouth 3 times daily 201 02/21/05 AMOXICILLIN 20163875326 No Longer Active Liliana Estrada MD PhD Active TESSALON PERLES 100 MG ORAL CAPSULE 1 tablet by mouth 3 times da cory BENZONATATE 16853853254 No Longer Active Liliana Estrada MD PhD Active FLAGYL 500 MG ORAL TABLET 1 tablet by mouth two times daily 2014 METRONIDAZOLE 00573485470 No Longer Active Nilamnory Doran tive ZITHROMAX 250 MG ORAL TABLET 2 po today, then 1 po q days 2-5 20 06/08/16 AZITHROMYCIN 32169665273 No Longer Active Arie Casper MD Active VITAMINS 0.8 MG ORAL TABLET take 1 tab po qday [id number]-POM-DG-[id number] 28981929526 No Longer Active Arie Casper MD Active IBUPROFEN 800 MG ORAL TABLET take one po Q 8 hours 201 02/01/16 IBUPROFEN 02385464418 No Longer Active Arie Casper MD Acti ve [facility] TUSSIN COUGH/COLD CF 5-10-100 MG/5ML ORAL LIQUID 2 teasp oons every 4 hours [id number]-KU 55270289573 No Longer Active Blaine Casper MD Active COMTREX COLD/COUGH DAY/NITE MS 5-2-10-325 MG ORAL 2 caps deja ry 4 hours [id number]-APAP 39363488263 No Longer Active Landon Casper MD Active CHLORASEPTIC MAX SORE THROAT 15-10 MG MOUTH/THROAT LOZENGE 1 every 2 hours prn BENZOCAINE-MENTHOL 18617280715 No Longer Active Arie Casper MD Active PREDNISONE 20 MG ORAL TABLET 2 tabs daily for 3 days, 1 tab daily for 3 days, 1/2 tab daily for 2 days PREDNISONE 35177507239 No Longer Active Jose Zhong MD Active AZITHROMYCIN 250 MG ORAL TABLET 2 po qd x 1 day, then 1 po q d x 4 days AZITHROMYCIN 60563028097 No Longer Active Jose Mcwilliams MD Active ZOFRAN ODT 4 MG ORAL TABLET DISINTEGRATING 1 po q6hr PRN Nausea ONDANSETRON 84004815184 No Longer Active Rich Rosales MD Active ZOFRAN 4 MG ORAL TABLET 1 tablet every 4 hours ONDANSETRON HCL 67138856111 No Longer Active Rich Rosales MD Activ e MUCINEX 600 MG ORAL TABLET EXTENDED RELEASE 12 HOUR Ta ke 1-2 tablets every 12 hours GUAIFENESIN 18566305843 No Longer Active Rich Rosales MD Active BACTRIM 400-80 MG ORAL TABLET take one po BID SULFAMETHOXAZOLE-TRIMETHOPRIM 97402141195 No Longer Active Abelardo HERNANDEZ Active AZITHROMYCIN 500 MG ORAL TABLET 1 PO q day x 6 days 20 03/02/23 AZITHROMYCIN 41394614252 No Longer Active Tin HERNANDEZ Activ e ZITHROMAX 250 MG ORAL TABLET 2 po today, then 1 po q days 2-5 20 10/03/08 AZITHROMYCIN 57586976374 No Longer Active Arie Casper MD Active ZITHROMAX 250 MG ORAL TABLET 2 po today, then 1 po q days 2-5 20 09/23/25 AZITHROMYCIN 04529694754 No Longer Active Arie Casper MD Active AMOXICILLIN 500 MG ORAL CAPSULE 1 tab by mouth 3 times daily 201 11/24/09 AMOXICILLIN 89524894081 No Longer Active Arie Casper MD Active BACTRIM DS 800-160 MG ORAL TABLET 1 tab by mouth twice daily 201 11/03/14 TRIMETHOPRIM-SULFAMETHOXAZOLE 48819359712 No Longer Active Fozia Casper MD Active AMOXICILLIN 500 MG ORAL TABLET take 1 tab po TID 08/05 AMOXICILLIN 21841306991 No Longer Active Arie Casper MD Acti [...] 4 hours ZOFRAN 4 MG ORAL TABLET 19800223 ONDANSETRON HCL Inactive ZOFRAN ODT 4 MG [...] COLD/COUGH DAY/NITE MS 5-2-10-325 MG ORA L [id number] Inactive [facility] TUSSIN COUGH/COLD CF 5-10-100 MG/5ML ORAL LIQUID 2 teasp oons every 4 hours [facility] TUSSIN COUGH/COLD CF 5-10-100 MG/5ML ORAL LI QUID [id number]-[id number] Inactive IBUPROFEN 800 MG ORAL TABLET take one po Q 8 hours 201 02/01/16 IBUPROFEN 800 MG ORAL TABLET IBUPROFEN Inactive VITAMINS 0.8 MG ORAL TABLET take 1 tab po qday VITAMINS 0.8 MG ORAL TABLET UPNOHZIA-GMK-[id number] E-FA Inactive TESSALON PERLES 100 MG ORAL CAPSULE 1 tablet by mouth 3 times da cory TESSALON PERLES 100 MG ORAL CAPSULE 19730630 BENZONATATE Inactive AMOXICILLIN 500 MG ORAL CAPSULE 1 tab by mouth 3 times daily 201 02/21/05 AMOXICILLIN 500 MG ORAL CAPSULE 382783 AMOXICILLIN Inactive GUAIFENESIN-CODEINE 100-10 MG/5ML ORAL SYRUP 2 tsp every 6 hours prn GUAIFENESIN-CODEINE 100-10 MG/5ML ORAL SYRUP 879217 GUAIFENESIN-CODEINE Inactive VICKS DAYQUIL SEVERE COLD/FLU TABLET 1 tab every 6 hours prn 201 02/22/17 VICKS DAYQUIL SEVERE COLD/FLU TABLET PHENYLEPHRI WY-SO-HP-APAP TABS Inactive BACTRIM DS 800-160 MG ORAL TABLET 1 twice a day 05/30 BACTRIM DS 800-160 MG ORAL TABLET 768783 SULFAMETHOXAZOLE-TRIMETHOPRIM Inactiv e PROMETHAZINE HCL 25 MG ORAL TABLET 1 four times a day as nee ded for vomiting PROMETHAZINE HCL 25 MG ORAL TABLET 737453 PROMETHAZINE HCL Inactive ZYRTEC ALLERGY 10 MG ORAL CAPSULE 1 po qd ZYRTEC ALLERGY 10 MG ORAL CAPSULE CETIRIZINE HCL Inactive MACROBID 100 MG ORAL CAPSULE 1 cap by mouth twice daily MACROBID 100 MG ORAL CAPSULE 8323396 NITROFURANTOIN MONOHYD MACRO In active LOMOTIL 2.5-0.025 MG ORAL TABLET 1 to 2 four times a day as needed for diarrhea LOMOTIL 2.5-0.025 MG ORAL TABLET 0055326 DIPHENOXYLATE-ATROPINE Inactive CYCLOBENZAPRINE HCL 10 MG ORAL TABLET 1/2 - 1 tablet b y mouth three times daily as needed for muscle spasm/pain CYCLOBEN ZAPRINE HCL 10 MG ORAL TABLET 421007 CYCLOBENZAPRINE HCL Inactive AMOXICILLIN 500 MG ORAL TABLET 2 tabs twice a day for 10 days 20 07/09/11 AMOXICILLIN 500 MG ORAL TABLET 453643 AMOXICILLIN I nactive LOMOTIL 2.5-0.025 MG ORAL TABLET 1 to 2 four times a day as needed for diarrhea LOMOTIL 2.5-0.025 MG ORAL TABLET 6086819 DIPHENOXYLATE-ATROPINE Inactive ZOFRAN 4 MG ORAL TABLET 1 TAB PO Q 6 HRS PRN NAUSEA 20 07/10/15 ZOFRAN 4 MG ORAL TABLET 066188 ONDANSETRON HCL Inactive CITRATE OF MAGNESIA ORAL SOLUTION 1 bottle today for constipatio n CITRATE OF MAGNESIA ORAL SOLUTION 0056944 MAGNESIUM CITR ATE Inactive PROMETHAZINE HCL 12.5 MG ORAL TABLET 1 tablet by mouth every 6 hours as needed for nausea/vomiting PROMETHAZINE HCL 12.5 MG ORA L TABLET 472028 PROMETHAZINE HCL Inactive PREDNISONE 20 MG ORAL TABLET 1 tablet twice daily for 2 days, then 1 tablet once daily for 2 days PREDNISONE 20 MG ORAL TABLET 705772 PREDNISONE Inactive ALPRAZOLAM 0.25 MG ORAL TABLET 1 tablet by mouth every 8 hours as needed for stress ALPRAZOLAM 0.25 MG ORAL TABLET 209157 ALPRA ZOLAM Inactive FLONASE 50 MCG/ACT NASAL SUSPENSION 1 spray each nostr il twice daily for allergies and runny nose until gone FLON ASE 50 MCG/ACT NASAL SUSPENSION FLUTICASONE PROPIONATE Inactive PREDNISONE 20 MG ORAL TABLET 1 tablet daily for airway inflammat ion PREDNISONE 20 MG ORAL TABLET 508516 PREDNISONE [place] ctive NAPROXEN 500 MG ORAL TABLET Take 1 tab BID NAPROXEN 500 MG ORAL TABLET 637849 NAPROXEN Inactive ZOLOFT 50 MG ORAL TABLET 1 tablet by mouth daily 12/08 ZOLOFT 50 MG ORAL TABLET 912075 SERTRALINE HCL Inactive LOMOTIL 2.5-0.025 MG ORAL TABLET 1 tab po four times a day as needed for diarrhea LOMOTIL 2.5-0.025 MG ORAL TABLET 1676891 DIPHENOXYLATE-ATROPINE Inactive CETIRIZINE HCL 10 MG ORAL TABLET 1 po qd PRN Allergies CETIRIZINE HCL 10 MG ORAL TABLET 1634493 CETIRIZINE HCL Inactiv e TUSSIONEX PENNKINETIC ER 10-8 MG/5ML ORAL SUSPENSION E XTENDED RELEASE 5ml po q12hr PRN Cough TUSSIONEX PENNKINETI C ER 10-8 MG/5ML ORAL SUSPENSION EXTENDED RELEASE HYDROCOD POLST-CHLORPHEN POLST I nactive NEXPLANON IMPLANT right arm subcutaneously NEXPLANON IMPLANT ETONOGESTREL IMPL Inactive PROTONIX 40 MG ORAL TABLET DELAYED RELEASE 1 po q a.m. PROTONIX 40 MG ORAL TABLET DELAYED RELEASE 006958 PANTOPRAZOLE SODI UM Inactive CHERATUSSIN AC 100-10 MG/5ML ORAL SYRUP 1 tsp by mouth every 4 hours as needed for cough CHERATUSSIN AC 100-10 MG/5ML ORAL SYRUP 9 01523 GUAIFENESIN-CODEINE Inactive GUAIFENESIN DM 400-20 MG ORAL [...] tid K EFLEX 500 MG ORAL CAPSULE 510267 CEPHALEXIN Inactive DIFLUCAN 100 MG ORAL TABLET 1 tablet by mouth daily, R EPEAT 2ND DOSE IN 7 DAYS IF STILL SYMPTOMATIC DIFLUCAN 100 MG ORAL TABLET 78830 8 FLUCONAZOLE Inactive PROTONIX 40 MG ORAL TABLET DELAYED RELEASE 1 pill by m outh daily, for acid reflux PROTONIX 40 MG ORAL TABLET DELAYED RELEAS E 083393 PANTOPRAZOLE SODIUM Inactive ALPRAZOLAM 0.25 MG ORAL TABLET 1 tablet by mouth twice a day as needed for stress/anxiety ALPRAZOLAM 0.25 MG ORAL TABLET 667518 ALPRAZOLAM Inactive ESCITALOPRAM OXALATE 10 MG ORAL TABLET take 1 tab po qhs for mod ESCITALOPRAM OXALATE 10 MG ORAL TABLET 301900 ESCITALOP JO OXALATE Inactive AMOXICILLIN 500 MG ORAL TABLET take 1 tab po TID 08/05 AMOXICILLIN 500 MG ORAL TABLET 441122 AMOXICILLIN Inactive AMOXICILLIN 500 MG ORAL CAPSULE 1 tab by mouth 3 times daily 201 11/24/09 AMOXICILLIN 500 MG ORAL CAPSULE 969353 AMOXICILLIN Inactive ZITHROMAX 250 MG ORAL TABLET 2 po today, then 1 po q days 2-5 20 09/23/25 ZITHROMAX 250 MG ORAL TABLET 367189 AZITHROMYCIN [place] ctive ZITHROMAX 250 MG ORAL TABLET 2 po today, then 1 po q days 2-5 20 10/03/08 ZITHROMAX 250 MG ORAL TABLET 312393 AZITHROMYCIN [place] ctive AZITHROMYCIN 500 MG ORAL TABLET 1 PO q day x 6 days 20 03/02/23 AZITHROMYCIN 500 MG ORAL TABLET 0483625 AZITHROMYCIN Inactive BACTRIM 400-80 MG ORAL TABLET take one po BID BACTRIM 400- 80 MG ORAL TABLET 778065 SULFAMETHOXAZOLE-TRIMETHOPRIM Inactive AZITHROMYCIN 250 MG ORAL TABLET 2 po qd x 1 day, then 1 po q d x 4 days AZITHROMYCIN 250 MG ORAL TABLET 015325 AZITHROMY ALLISON Inactive PREDNISONE 20 MG ORAL TABLET 2 tabs daily for 3 days, 1 tab daily for 3 days, 1/2 tab daily for 2 days PREDNISONE 20 MG ORAL T ABLET 844820 PREDNISONE Inactive ZITHROMAX 250 MG ORAL TABLET 2 po today, then 1 po q days 2-5 20 06/08/16 ZITHROMAX 250 MG ORAL TABLET 648309 AZITHROMYCIN [place] ctive FLAGYL 500 MG ORAL TABLET 1 tablet by mouth two times daily 2014 FLAGYL 500 MG ORAL TABLET 546643 METRONIDAZOLE Inacti ve AUGMENTIN 875-125 MG ORAL TABLET 1 tab by mouth twice daily with food AUGMENTIN 875-125 MG ORAL TABLET 537817 AMOXICIL ELSA-POT CLAVULANATE Inactive NAPROXEN 500 MG ORAL TABLET one tab PO BID NAPROXEN 500 MG ORAL TABLET 492981 NAPROXEN Inactive PREDNISONE 20 MG ORAL TABLET 2 tabs daily for 3 days, 1 tab daily for 3 days, 1/2 tab daily for 2 days PREDNISONE 20 MG ORAL T ABLET 167202 PREDNISONE Inactive AZITHROMYCIN 250 MG ORAL TABLET 2 po qd x 1 day, then 1 po q d x 4 days AZITHROMYCIN 250 MG ORAL TABLET 189394 AZITHROMY ALLISON Inactive PREDNISONE 20 MG ORAL TABLET 2 tabs daily for 3 days, 1 tab daily for 3 days, 1/2 tab daily for 2 days PREDNISONE 20 MG ORAL T ABLET 021405 PREDNISONE Inactive ZITHROMAX Z-EMIL 250 MG ORAL TABLET 2 today, then 1 daily for 4 d ays ZITHROMAX Z-EMIL 250 MG ORAL TABLET 839890 AZITHROMYCIN Inactive CEFDINIR 300 MG ORAL CAPSULE 1 po BID x 10 days 12/18 CEFDINIR 300 MG ORAL CAPSULE 048256 CEFDINIR Inactive CEFDINIR 300 MG ORAL CAPSULE 1 po BID x 10 days CEFDINIR 300 MG ORAL CAPSULE 516200 CEFDINIR Inactive PREDNISONE 20 MG ORAL TABLET 2 tabs daily for 3 days, 1 tab daily for 3 days, 1/2 tab daily for 2 days PREDNISONE 20 MG ORAL T ABLET 025384 PREDNISONE Inactive BACTRIM DS 800-160 MG ORAL TABLET 1 tab by mouth twice daily 201 05/02/30 BACTRIM DS 800-160 MG ORAL TABLET 978505 TRIMETHOPRIM-SULFAMETHOXAZOLE Inactive ZITHROMAX Z-EMIL 250 MG ORAL TABLET 2 today, then 1 daily for 4 d ays ZITHROMAX Z-EMIL 250 MG ORAL TABLET 690876 AZITHROMYCIN Inactive TAMIFLU 75 MG ORAL CAPSULE 1 po BID x 5 days 0 TAMIFLU 75 MG ORAL CAPSULE 681991 OSELTAMIVIR PHOSPHATE Inactive CEFDINIR 300 MG ORAL CAPSULE 1 po BID x 10 days 01/03 CEFDINIR 300 MG ORAL CAPSULE 793193 CEFDINIR Inactive ZITHROMAX Z-EMIL 250 MG TABS Take two tablets today and then 1 tablet daily for 4 days ZITHROMAX Z-EMIL 250 MG TABS 941040 AZITHROM YCIN Inactive AMOXICILLIN 875 MG ORAL TABLET 1 tab by mouth twice daily 1 AMOXICILLIN 875 MG ORAL TABLET 608664 AMOXICILLIN Inactive Advance Directives Directive Description Start [...] 11 .0-15.0 platelet count 280 THOUSAND/UL 10*3/mm3 198-580 3716/02/18 mean platelet volume 11.6 fL 7.5-12.5 Lab [...] 11 .6-14.8 platelet count 245 10^3/MM^3 10*3/mm3 092-946 6906/09/27 leukocyte count, blood 7.6 10^3/MM^3 10*3/mm3 4.6-10.2 [...] (L) - Chemistry sodium, serum 138 mmol/L 675-132 9894/04/11 carbon dioxide, venous blood 27.1 mmol/L 21.0-32 [...] W/MICRO, AUTO, Wet Pr ... - Chemistry TSH 1.16 m[iU]/mL 0.36-3.74 protein, total urine random Negative mg/dL Negative RBC, urine, dipstick 1+ Negative Lab Report: Thyroid Stimulating Hormone (L), UADIP W/MICRO, AUTO, Wet Pr ... - Urinalysis urobilinogen, urine, semiquantitative (dipstick) 0.2 E .U./dL Normal leukocyte esterase, urine, by dipstick Negative Negative nitrite, urine, semiquantitative Negative Neg ative glucose, urine, semiquantitative Negative Neg ative ketones, urine, by test strip 4+ Negati ve bilirubin, urine Negative Negative urine color Yellow Colorless;Lightyellow;St raw;Yellow appearance, urine Clear Clear specific gravity, urine >=1.030 1.000-1.030 pH, urine, semiquantitative 6.0 5.0-8.5 Office Visit: Evaluation for infertility - Chemistry [...] mg/dL Encounters Code Encounter Date Provider Facility CPT-56122 Level 4 Est. Patient 16:18:17 DRIVER MEDIC Myrna maldonado MD [facility] CPT-46460 Level 4 Est. Patient 16:39:44 DRIVER MEDIC Jose Zhong MD [facility] CPT-48092 [id number] Vst-Est Level IV 13:45:[address] Tali Devi PA-C [facility] CPT-17733 [id number] Vst-Est Level III 09:41:31 CDT Arie Casper MD [facility]-69985 [id number] Vst-Est Level III 18:20:11 CDT Me lobito Russ [facility] [place] CPT-16680 [id number] Vst-Est Level III 17:21:41 CDT Me lobito Russ [facility] [place] CPT-40804 [id number] Vst-Est Level IV 13:30:22 C DT Arie Casper MD [facility] CPT-02730 Level 4 Est. Patient 13:05:26 CDT Myrna maldonado [facility]-73592 [id number] Vst-Est Level IV 20:50:21 C NIC Casper MD [facility] CPT-36265 Level 3 Est. Patient 11:49:34 DRIVER MEDIC Jessica boyd [facility] [place] CPT-08143 Level 3 Est. Patient 14:55:50 DRIVER MEDIC Jose Zhong MD [facility] CPT-05596 Level 3 Est. Patient 10:21:41 DRIVER MEDIC Arie mcqueen MD [facility] CPT-05150 Level 3 Est. Patient 11:35:15 DRIVER MEDIC Arie mcqueen MD [facility] CPT-95327 Level 3 Est. Patient 15:40:28 CDT Brii Yepez [facility] CPT-77861 Level 3 Est. Patient 16:40:36 CDT Arie mcqueen MD [facility] CPT-78263 Level 4 Est. Patient 15:29:22 DRIVER MEDIC Arie mcqueen MD [facility] CPT-91567 Level 3 Est. Patient 15:18:16 DRIVER MEDIC Jono black DO [facility] CPT-48142 Level 4 Est. Patient 12:08:40 DRIVER MEDIC Brii Are ll [facility] [place] CPT-61222 Level 3 Est. Patient 09:24:42 CDT Brii Are ll COKE WHEELER [facility] CPT-94923 Level 3 Est. Patient 09:12:56 CDT Arie mcqueen MD [facility] CPT-32239 Level 3 Est. Patient 16:40:54 CDT Jose Zhong MD [facility] CPT-60611 Level 2 Est. Patient 13:01:13 CDT Brii Are ll COKE WHEELER [facility] CPT-98050 Level 3 Est. Patient 11:55:30 DRIVER MEDIC Jono blcak DO [facility] CPT-03341 Level 3 Est. Patient 09:52:36 [employer]IVER MEDIC [employer] [facility] CPT-26357 Level 3 Est. Patient 16:25:33 DRIVER MEDIC Rich Rosales MD [facility] CPT-[id number] Level 3 Est. Patient 20:33:55 CDT Arie mcqueen MD [facility] CPT-[id number] Level 3 Est. Patient 14:18:20 CDT Rich Rosales MD [facility] CPT-[id number] Level 4 Est. Patient 09:34:31 CDT Arie mcqueen MD [facility] CPT-[id number] Level 3 Est. Patient 09:08:55 DRIVER MEDIC Liliana vincent MD PhD [facility] CPT-76150 Level 3 Est. Patient 16:44:07 DRIVER MEDIC Arie mcqueen MD [facility] CPT-11029 Level 3 Est. Patient 10:44:27 CDT Arie mcqueen MD [facility] CPT-47008 Level 3 Est. Patient 08:55:41 CDT Jose Zhong MD [facility] CPT-32426 Level 3 Est. Patient 18:37:31 CDT Liliana vincent MD PhD [facility] CPT-52165 Level 3 Est. Patient 14:28:23 CDT Abelardo HERNANDEZ [facility] CPT-21105 Level 3 Est. Patient 15:18:13 DRIVER MEDIC Arie mcqueen MD [facility] CPT-64508 Level 3 Est. Patient 10:11:29 DRIVER MEDIC Arie mcqueen MD [facility] CPT-68651 Level 3 Est. Patient 10:55:57 DRIVER MEDIC Jono black DO [facility] CPT-27963 Level 3 Est. Patient 17:29:05 CDT Arie mcqueen MD [facility] Procedures Code Procedure Name Date Entry Date Standard Desc ription CPT-84335 Sono OB transvag XRAY USE ONLY 17:12:53 CS T CPT-12176 Sono OB transvag XRAY USE ONLY 17:11:12 CS T CPT-75211 UHCG Urine - MARC ONLY 12:13:59 DRIVER MEDIC 12/11 CPT-15388 Spec Collection and Handling Fee 12:13:[address] CPT-22404 Visit 12:13:59 DRIVER MEDIC CPT-72858 First Vx - Ix admin via ID I M or jet injects without counseling by physician 13:00:15 DRIVER MEDIC CPT-18748 Flulaval Intramuscular Injectable 13:00:15 DRIVER MEDIC CPT-82251 Urine Dip (Floor Use Only) 12:20:20 DRIVER MEDIC 201 06/03/24 CPT-59117 Sono Soft Tissue Head and Neck - XRAY US E ONLY 17:10:14 CDT CPT-00443 Ear Wash with irrigation 17:21:41 CDT 07/04 CPT-02379 Nexplanon Removal 15:40:28 CDT CPT-79357 Sono transvag pelvis non OB uterus ovari es cervix - XRAY USE ONLY 08:58:14 DRIVER MEDIC CPT-79197 UA w micro - LAB USE ONLY 16:04:56 DRIVER MEDIC 2015 CPT-45389 Wet Prep/GEN - LAB USE ONLY 16:04:56 DRIVER MEDIC 20 08/10/29 CPT-89822 First Vx - Ix admin via ID I M or jet injects without counseling by physician 16:57:10 CDT CPT-51245 Fluzone Preservative Free Intramuscular Suspension 16:57:10 CDT CPT-J0696 Rocephin 1000 mg (Ceftriaxone) 11:49:23 CDT CPT-J1040 Depo Medrol 80 mg (Methyl Prednisolone A cetate) 11:49:23 CDT CPT-J1100 Decadron 8mg (Dexamethasone) 11:49:23 CDT 2 CPT-56621 Abx/Therapy Injection 11:49:23 CDT CPT-09349 Abx/Therapy Injection 11:49:23 CDT CPT-11439 Abd compl w upright 09:07:26 DRIVER MEDIC CPT-48843 Ear Wash 16:12:47 DRIVER MEDIC CPT-OV Office Visit 11:12:01 CDT CPT-OV Office Visit 15:30:23 CDT CPT-97497 Sono pelvis non OB uterus ovaries cervix 15:50:44 CDT CPT-52324 Hand comp min 3V 16:42:32 CDT CPT-60364 Abd compl w upright 12:17:01 CDT CPT-13412 Nexplanon Placement 15:07:39 DRIVER MEDIC CPT-51715 Removal of IUD 15:07:39 DRIVER MEDIC CPT-25634 TB Tubersol 12:09:32 CDT CPT-46770 TB Tubersol 13:55:43 CDT
--- OUTSIDE RECORDS SUMMARY | 2020-03-03 06:44 | XMS REPORT | Clinical Summary ---
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 DILAUDID Severe Active Brii MARROQUIN RN Conditions or Problems Problem Name Problem Code Onset Date Status Entry Date Provider Comment Standard Description Annotate FH BREAST CANCER V16.3 Resolved Jsoe Zhong MD Family history of malignant neoplasm [...] quadrant Urinary frequency 788.41 Inactive Roseann Crawford [facility] Urinary frequency Urinary frequency 788.41 Resolved [...] Vaccination for Prophylaxis V04.81 Inactive Brii Petrona SENIOR ADMINISTRATIVE ASSOCIATE Need for prophylactic vaccin ation and inoculation [...] Myrna Roberto MD Dizziness and giddiness FH COLON CANCER ICD-V16.0 Inactive Jose Zhong MD FH DIABETES ICD-V18.0 Inactive Jose Zhong MD 201 01/29/08 FH BREAST CANCER ICD-V16.3 Inactive Jose Marcelo SINUSITIS ICD-473.9 Inactive Liliana Estrada MD Ph D ACUTE FRONTAL SINUSITIS ICD-461.1 Inactive Meghan Estrada MD PhD IUD removal ICD-V25.42 Inactive Liliana Estrada MD PhD CYSTITIS ICD-595.9 Inactive Liliana Estrada MD Ph D CONTRACEPTIVE MANAGEMENT ICD-V25.09 Inactive Myrna Roberto MD Diarrhea ICD-787.91 Inactive Jose Marcelo Thumb pain, right ICD-729.5 Inactive Jose pelayo MD Abdominal pain ICD-789.00 Inactive Jose monreal MD Sinusitis, acute ICD-461.9 Inactive Liliana cheema MD PhD Symptom, cough ICD-786.2 Inactive Liliana [...] MD Sinusitis ICD-461.9 Inactive Jose Zhong MD Fever ICD-780.60 Inactive Liliana Estrada MD PhD [...] 3-4 times per day 12/11 PYRIDOXINE HCL 30484104732 Active Myrna Roberto MD Active UNISOM SLEEPTABS 25 MG ORAL TABLET one tab PO qhs DOXYLAMINE SUCCINATE (SLEEP) 96793980271 Active Myrna Robetro MD Active TYLENOL 325 MG ORAL CAPSULE PRN ACETAMINOPHEN 000 82668823 Active Brii Pacheco Active ESCITALOPRAM OXALATE 10 MG ORAL TABLET take 1 tab po qhs for mod ESCITALOPRAM OXALATE 36904135015 No Longer Active Brii Pacheco Active ALPRAZOLAM 0.25 MG ORAL TABLET 1 tablet by mouth twice a day as needed for stress/anxiety ALPRAZOLAM 89880472768 No Longer Active Brii Pacheco Active PROTONIX 40 MG ORAL TABLET DELAYED RELEASE 1 pill by m outh daily, for acid reflux PANTOPRAZOLE SODIUM 23659683914 No Longer Activ e Brii Tara Active DIFLUCAN 100 MG ORAL TABLET 1 tablet by mouth daily, R EPEAT 2ND DOSE IN 7 DAYS IF STILL SYMPTOMATIC FLUCONAZOLE 62495222432 No Long er Active Nilam Raida Active KEFLEX 500 MG ORAL CAPSULE 1 po tid CEPHALEXI N 38559273968 No Longer Active Tali Devi PA-C Active CONCEPT DHA 53.5-38-1 MG ORAL CAPSULE 1 tablet daily [id number] 3 56789370095 Active Oxana Souza LPN Active AMOXICILLIN 875 MG ORAL TABLET 1 tab by mouth twice daily 1 AMOXICILLIN 40263356973 No Longer Active Brii Russ APRN Active TUSSIONEX PENNKINETIC ER 10-8 MG/5ML ORAL SUSPENSION E XTENDED RELEASE 5ml po q12hr PRN Cough HYDROCOD POLST-CHLORPHEN POLST 5 0387349809 No Longer Active Myrna Roberto MD Active ZITHROMAX Z-EMIL 250 MG TABS Take two tablets today and then 1 tablet daily for 4 days AZITHROMYCIN 23041960992 No Longer Active Flaco Rosales MD Active GUAIFENESIN DM 400-20 MG ORAL TABLET 1 pill by mouth t wice daily, if needed for cough DEXTROMETHORPHAN-GUAIFENESIN 52312419600 No Longer Active Rich Rosales MD Active CEFDINIR 300 MG ORAL CAPSULE 1 po BID x 10 days CEFDINIR 94312708349 No Longer Active Jessica Heaton APRN Active CHERATUSSIN AC 100-10 MG/5ML ORAL SYRUP 1 tsp by mouth every 4 hours as needed for cough GUAIFENESIN-CODEINE 83607568775 No Longe r Active Jessica Heaton APRN Active TAMIFLU 75 MG ORAL CAPSULE 1 po BID x 5 days 0 OSELTAMIVIR PHOSPHATE 35468393055 No Longer Active Jose Zhong MD Activ e ZITHROMAX Z-EMIL 250 MG ORAL TABLET 2 today, then 1 daily for 4 d ays AZITHROMYCIN 40713025681 No Longer Active Arie Casper MD Active PROTONIX 40 MG ORAL TABLET DELAYED RELEASE 1 po q a.m. PANTOPRAZOLE SODIUM 58429928742 No Longer Active Arie Casper MD Active BACTRIM DS 800-160 MG ORAL TABLET 1 tab by mouth twice daily 201 05/02/30 TRIMETHOPRIM-SULFAMETHOXAZOLE 81120441450 No Longer Active R KELLIE Sandoval Active NEXPLANON IMPLANT right arm subcutaneously ETONOGESTREL IMPL 67733579963 No Longer Active Brii Russ APRN Active TUSSIONEX PENNKINETIC ER 10-8 MG/5ML ORAL SUSPENSION E XTENDED RELEASE 5ml po q12hr PRN Cough HYDROCOD POLST-CHLORPHEN POLST 5 3203064608 No Longer Active Brii Russ SENIOR ADMINISTRATIVE ASSOCIATE Active CETIRIZINE HCL 10 MG ORAL TABLET 1 po qd PRN Allergies CETIRIZINE HCL 13188987255 No Longer Active Brii Russ APRN Activ e PREDNISONE 20 MG ORAL TABLET 2 tabs daily for 3 days, 1 tab daily for 3 days, 1/2 tab daily for 2 days PREDNISONE 29585072675 No Longer Active Arie Casper MD Active LOMOTIL 2.5-0.025 MG ORAL TABLET 1 tab po four times a day as needed for diarrhea DIPHENOXYLATE-ATROPINE 72658697749 No Lo nger Active Arie Casper MD Active ZOLOFT 50 MG ORAL TABLET 1 tablet by mouth daily 12/08 SERTRALINE HCL 73238413496 No Longer Active Arie Casper MD Ac tive NAPROXEN 500 MG ORAL TABLET Take 1 tab BID NAPR OXEN 90239845811 No Longer Active Arie Casper MD Active CEFDINIR 300 MG ORAL CAPSULE 1 po BID x 10 days CEFDINIR 91009304666 No Longer Active Brii Russ APRN Active PREDNISONE 20 MG ORAL TABLET 1 tablet daily for airway inflammat ion PREDNISONE 40968865952 No Longer Active Brii Russ APRN A ctive CEFDINIR 300 MG ORAL CAPSULE 1 po BID x 10 days CEFDINIR 22026973868 No Longer Active Jono Gagnon DO Active FLONASE 50 MCG/ACT NASAL SUSPENSION 1 spray each nostr il twice daily for allergies and runny nose until gone FLUT ICASONE PROPIONATE 93802462085 No Longer Active Jono Gagnon DO Active ALPRAZOLAM 0.25 MG ORAL TABLET 1 tablet by mouth every 8 hours as needed for stress ALPRAZOLAM 87974017767 No Longer Active Jono Gagnon DO Active ZITHROMAX Z-EMIL 250 MG ORAL TABLET 2 today, then 1 daily for 4 d ays AZITHROMYCIN 21244136655 No Longer Active Arie Casper MD Active PREDNISONE 20 MG ORAL TABLET 2 tabs daily for 3 days, 1 tab daily for 3 days, 1/2 tab daily for 2 days PREDNISONE 53476722379 No Longer Active Brii Areboris SENIOR ADMINISTRATIVE ASSOCIATE Active PREDNISONE 20 MG ORAL TABLET 1 tablet twice daily for 2 days, then 1 tablet once daily for 2 days PREDNISONE 99926872975 No Longer Active Brii Russ SENIOR ADMINISTRATIVE ASSOCIATE Active PROMETHAZINE HCL 12.5 MG ORAL TABLET 1 tablet by mouth every 6 hours as needed for nausea/vomiting PROMETHAZINE HCL 49855153992 No L onger Active Jono Gagnon DO Active CITRATE OF MAGNESIA ORAL SOLUTION 1 bottle today for constipatio n MAGNESIUM CITRATE 35142202043 No Longer Active Jono Gagnon DO Active ZOFRAN 4 MG ORAL TABLET 1 TAB PO Q 6 HRS PRN NAUSEA 07/10/15 ONDANSETRON HCL 67976668259 No Longer Active Brii Arell SENIOR ADMINISTRATIVE ASSOCIATE Acti ve LOMOTIL 2.5-0.025 MG ORAL TABLET 1 to 2 four times a day as needed for diarrhea DIPHENOXYLATE-ATROPINE 15014027894 No Longer Active January Russ APRN Active AMOXICILLIN 500 MG ORAL TABLET 2 tabs twice a day for 10 days 20 07/09/11 AMOXICILLIN 40435030648 No Longer Active Brii Arell SENIOR ADMINISTRATIVE ASSOCIATE Active CYCLOBENZAPRINE HCL 10 MG ORAL TABLET 1/2 - 1 tablet b y mouth three times daily as needed for muscle spasm/pain CYCLOBENZAPRINE HCL 05644878112 No Longer Active Arie Casper MD Active LOMOTIL 2.5-0.025 MG ORAL TABLET 1 to 2 four times a day as needed for diarrhea DIPHENOXYLATE-ATROPINE 35997709670 No Longer Active Fozia Casper MD Active MACROBID 100 MG ORAL CAPSULE 1 cap by mouth twice daily NITROFURANTOIN MONOHYD MACRO 55206753111 No Longer Active Arie Casper MD Active ZYRTEC ALLERGY 10 MG ORAL CAPSULE 1 po qd CE TIRIZINE HCL 94254176381 No Longer Active Arie Casper MD Active AZITHROMYCIN 250 MG ORAL TABLET 2 po qd x 1 day, then 1 po q d x 4 days AZITHROMYCIN 37165399608 No Longer Active Waynellarlen salgado SENIOR ADMINISTRATIVE ASSOCIATE Active PREDNISONE 20 MG ORAL TABLET 2 tabs daily for 3 days, 1 tab daily for 3 days, 1/2 tab daily for 2 days PREDNISONE 16422071335 No Longer Active Waynellarlen Heaton SENIOR ADMINISTRATIVE ASSOCIATE Active PROMETHAZINE HCL 25 MG ORAL TABLET 1 four times a day as nee ded for vomiting PROMETHAZINE HCL 29170732857 No Longer Active Myrna Roberto MD Active BACTRIM DS 800-160 MG ORAL TABLET 1 twice a day 05/30 SULFAMETHOXAZOLE-TRIMETHOPRIM 13654749444 No Longer Active Myrna Roberto MD Active VICKS DAYQUIL SEVERE COLD/FLU TABLET 1 tab every 6 hours prn 201 02/22/17 [id number] TABS 43417824704 No Longer Active K fany Roberto MD Active GUAIFENESIN-CODEINE 100-10 MG/5ML ORAL SYRUP 2 tsp every 6 hours prn GUAIFENESIN-CODEINE 80917914836 No Longer Active Myrna Roberto MD Active NAPROXEN 500 MG ORAL TABLET one tab PO BID NAPR OXEN 32420222922 No Longer Active Myrna Roberto MD Active AUGMENTIN 875-125 MG ORAL TABLET 1 tab by mouth twice daily with food AMOXICILLIN-POT CLAVULANATE 33398773220 No Longer Act zaid Liliana Estrada MD PhD Active AMOXICILLIN 500 MG ORAL CAPSULE 1 tab by mouth 3 times daily 201 02/21/05 AMOXICILLIN 50614427994 No Longer Active Liliana Estrada MD PhD Active TESSALON PERLES 100 MG ORAL CAPSULE 1 tablet by mouth 3 times da cory BENZONATATE 87054892805 No Longer Active Liliana Estrada MD PhD Active FLAGYL 500 MG ORAL TABLET 1 tablet by mouth two times daily 2014 METRONIDAZOLE 65595451533 No Longer Active Nilamnory Plattida Espinoza tive ZITHROMAX 250 MG ORAL TABLET 2 po today, then 1 po q days 2-5 20 06/08/16 AZITHROMYCIN 38943908168 No Longer Active Arie Casper MD Active VITAMINS 0.8 MG ORAL TABLET take 1 tab po qday [id number] 42917362992 No Longer Active Arie Casper MD Active IBUPROFEN 800 MG ORAL TABLET take one po Q 8 hours 201 02/01/16 IBUPROFEN 91657773489 No Longer Active Arie Casper MD Acti ve [facility] TUSSIN COUGH/COLD CF 5-10-100 MG/5ML ORAL LIQUID 2 teasp oons every 4 hours [id number] 18097753547 No Longer Active Blaine Casper MD Active COMTREX COLD/COUGH DAY/NITE MS 5-2-10-325 MG ORAL 2 caps deja ry 4 hours [id number]-APAP 33516761789 No Longer Active Landon Casper MD Active CHLORASEPTIC MAX SORE THROAT 15-10 MG MOUTH/THROAT LOZENGE 1 every 2 hours prn BENZOCAINE-MENTHOL 48833953461 No Longer Active Arie Casper MD Active PREDNISONE 20 MG ORAL TABLET 2 tabs daily for 3 days, 1 tab daily for 3 days, 1/2 tab daily for 2 days PREDNISONE 17983497094 No Longer Active Jose Zhong MD Active AZITHROMYCIN 250 MG ORAL TABLET 2 po qd x 1 day, then 1 po q d x 4 days AZITHROMYCIN 75148474372 No Longer Active Jose Mcwilliams MD Active ZOFRAN ODT 4 MG ORAL TABLET DISINTEGRATING 1 po q6hr PRN Nausea ONDANSETRON 39129533253 No Longer Active Rich Rosales MD Active ZOFRAN 4 MG ORAL TABLET 1 tablet every 4 hours ONDANSETRON HCL 11443625717 No Longer Active Rich Rosales MD Activ e MUCINEX 600 MG ORAL TABLET EXTENDED RELEASE 12 HOUR Ta ke 1-2 tablets every 12 hours GUAIFENESIN 59780483206 No Longer Active Rich Rosales MD Active BACTRIM 400-80 MG ORAL TABLET take one po BID SULFAMETHOXAZOLE-TRIMETHOPRIM 18238879783 No Longer Active Abelardo HERNANDEZ Active AZITHROMYCIN 500 MG ORAL TABLET 1 PO q day x 6 days 20 03/02/23 AZITHROMYCIN 31960813860 No Longer Active Tin HERNANDEZ Activ e ZITHROMAX 250 MG ORAL TABLET 2 po today, then 1 po q days 2-5 20 10/03/08 AZITHROMYCIN 14380404043 No Longer Active Arie Casper MD Active ZITHROMAX 250 MG ORAL TABLET 2 po today, then 1 po q days 2-5 20 09/23/25 AZITHROMYCIN 31459325618 No Longer Active Arie Casper MD Active AMOXICILLIN 500 MG ORAL CAPSULE 1 tab by mouth 3 times daily 201 11/24/09 AMOXICILLIN 44389752444 No Longer Active Arie Casper MD Active BACTRIM DS 800-160 MG ORAL TABLET 1 tab by mouth twice daily 201 11/03/14 TRIMETHOPRIM-SULFAMETHOXAZOLE 71863904820 No Longer Active Fozia Casper MD Active AMOXICILLIN 500 MG ORAL TABLET take 1 tab po TID 08/05 AMOXICILLIN 75427876200 No Longer Active Arie Casper MD Acti [...] 4 hours ZOFRAN 4 MG ORAL TABLET 112350 ONDANSETRON HCL Inactive ZOFRAN ODT 4 MG [...] COLD/COUGH DAY/NITE MS 5-2-10-325 MG ORA L [id number] Inactive [facility] TUSSIN COUGH/COLD CF 5-10-100 MG/5ML ORAL LIQUID 2 teasp oons every 4 hours [facility] TUSSIN COUGH/COLD CF 5-10-100 MG/5ML ORAL LI QUID [id number] Inactive IBUPROFEN 800 MG ORAL TABLET take one po Q 8 hours 201 02/01/16 IBUPROFEN 800 MG ORAL TABLET IBUPROFEN Inactive VITAMINS 0.8 MG ORAL TABLET take 1 tab po qday VITAMINS 0.8 MG ORAL TABLET [id number] E-FA Inactive TESSALON PERLES 100 MG ORAL CAPSULE 1 tablet by mouth 3 times da cory TESSALON PERLES 100 MG ORAL CAPSULE 19730630 BENZONATATE Inactive AMOXICILLIN 500 MG ORAL CAPSULE 1 tab by mouth 3 times daily 201 02/21/05 AMOXICILLIN 500 MG ORAL CAPSULE 550708 AMOXICILLIN Inactive GUAIFENESIN-CODEINE 100-10 MG/5ML ORAL SYRUP 2 tsp every 6 hours prn GUAIFENESIN-CODEINE 100-10 MG/5ML ORAL SYRUP 000716 GUAIFENESIN-CODEINE Inactive VICKS DAYQUIL SEVERE COLD/FLU TABLET 1 tab every 6 hours prn 201 02/22/17 VICKS DAYQUIL SEVERE COLD/FLU TABLET PHENYLEPHRI GI-QQ-PI-APAP TABS Inactive BACTRIM DS 800-160 MG ORAL TABLET 1 twice a day 05/30 BACTRIM DS 800-160 MG ORAL TABLET 493371 SULFAMETHOXAZOLE-TRIMETHOPRIM Inactiv e PROMETHAZINE HCL 25 MG ORAL TABLET 1 four times a day as nee ded for vomiting PROMETHAZINE HCL 25 MG ORAL TABLET 720652 PROMETHAZINE HCL Inactive ZYRTEC ALLERGY 10 MG ORAL CAPSULE 1 po qd ZYRTEC ALLERGY 10 MG ORAL CAPSULE CETIRIZINE HCL Inactive MACROBID 100 MG ORAL CAPSULE 1 cap by mouth twice daily MACROBID 100 MG ORAL CAPSULE 5992234 NITROFURANTOIN MONOHYD MACRO In active LOMOTIL 2.5-0.025 MG ORAL TABLET 1 to 2 four times a day as needed for diarrhea LOMOTIL 2.5-0.025 MG ORAL TABLET 5012886 DIPHENOXYLATE-ATROPINE Inactive CYCLOBENZAPRINE HCL 10 MG ORAL TABLET 1/2 - 1 tablet b y mouth three times daily as needed for muscle spasm/pain CYCLOBEN ZAPRINE HCL 10 MG ORAL TABLET 895537 CYCLOBENZAPRINE HCL Inactive AMOXICILLIN 500 MG ORAL TABLET 2 tabs twice a day for 10 days 20 07/09/11 AMOXICILLIN 500 MG ORAL TABLET 035995 AMOXICILLIN I nactive LOMOTIL 2.5-0.025 MG ORAL TABLET 1 to 2 four times a day as needed for diarrhea LOMOTIL 2.5-0.025 MG ORAL TABLET 5668282 DIPHENOXYLATE-ATROPINE Inactive ZOFRAN 4 MG ORAL TABLET 1 TAB PO Q 6 HRS PRN NAUSEA 20 07/10/15 ZOFRAN 4 MG ORAL TABLET 812799 ONDANSETRON HCL Inactive CITRATE OF MAGNESIA ORAL SOLUTION 1 bottle today for constipatio n CITRATE OF MAGNESIA ORAL SOLUTION 2872693 MAGNESIUM CITR ATE Inactive PROMETHAZINE HCL 12.5 MG ORAL TABLET 1 tablet by mouth every 6 hours as needed for nausea/vomiting PROMETHAZINE HCL 12.5 MG ORA L TABLET 267641 PROMETHAZINE HCL Inactive PREDNISONE 20 MG ORAL TABLET 1 tablet twice daily for 2 days, then 1 tablet once daily for 2 days PREDNISONE 20 MG ORAL TABLET 589537 PREDNISONE Inactive ALPRAZOLAM 0.25 MG ORAL TABLET 1 tablet by mouth every 8 hours as needed for stress ALPRAZOLAM 0.25 MG ORAL TABLET 437626 ALPRA ZOLAM Inactive FLONASE 50 MCG/ACT NASAL SUSPENSION 1 spray each nostr il twice daily for allergies and runny nose until gone FLON ASE 50 MCG/ACT NASAL SUSPENSION FLUTICASONE PROPIONATE Inactive PREDNISONE 20 MG ORAL TABLET 1 tablet daily for airway inflammat ion PREDNISONE 20 MG ORAL TABLET 089044 PREDNISONE [place] ctive NAPROXEN 500 MG ORAL TABLET Take 1 tab BID NAPROXEN 500 MG ORAL TABLET 800008 NAPROXEN Inactive ZOLOFT 50 MG ORAL TABLET 1 tablet by mouth daily 12/08 ZOLOFT 50 MG ORAL TABLET 368399 SERTRALINE HCL Inactive LOMOTIL 2.5-0.025 MG ORAL TABLET 1 tab po four times a day as needed for diarrhea LOMOTIL 2.5-0.025 MG ORAL TABLET 2082053 DIPHENOXYLATE-ATROPINE Inactive CETIRIZINE HCL 10 MG ORAL TABLET 1 po qd PRN Allergies CETIRIZINE HCL 10 MG ORAL TABLET 6590328 CETIRIZINE HCL Inactiv e TUSSIONEX PENNKINETIC ER 10-8 MG/5ML ORAL SUSPENSION E XTENDED RELEASE 5ml po q12hr PRN Cough TUSSIONEX PENNKINETI C ER 10-8 MG/5ML ORAL SUSPENSION EXTENDED RELEASE HYDROCOD POLST-CHLORPHEN POLST I nactive NEXPLANON IMPLANT right arm subcutaneously NEXPLANON IMPLANT ETONOGESTREL IMPL Inactive PROTONIX 40 MG ORAL TABLET DELAYED RELEASE 1 po q a.m. PROTONIX 40 MG ORAL TABLET DELAYED RELEASE 198085 PANTOPRAZOLE SODI UM Inactive CHERATUSSIN AC 100-10 MG/5ML ORAL SYRUP 1 tsp by mouth every 4 hours as needed for cough CHERATUSSIN AC 100-10 MG/5ML ORAL SYRUP 9 88262 GUAIFENESIN-CODEINE Inactive GUAIFENESIN DM 400-20 MG ORAL [...] tid K EFLEX 500 MG ORAL CAPSULE 986167 CEPHALEXIN Inactive DIFLUCAN 100 MG ORAL TABLET 1 tablet by mouth daily, R EPEAT 2ND DOSE IN 7 DAYS IF STILL SYMPTOMATIC DIFLUCAN 100 MG ORAL TABLET 25494 8 FLUCONAZOLE Inactive PROTONIX 40 MG ORAL TABLET DELAYED RELEASE 1 pill by m outh daily, for acid reflux PROTONIX 40 MG ORAL TABLET DELAYED RELEAS E 280266 PANTOPRAZOLE SODIUM Inactive ALPRAZOLAM 0.25 MG ORAL TABLET 1 tablet by mouth twice a day as needed for stress/anxiety ALPRAZOLAM 0.25 MG ORAL TABLET 155105 ALPRAZOLAM Inactive ESCITALOPRAM OXALATE 10 MG ORAL TABLET take 1 tab po qhs for mod ESCITALOPRAM OXALATE 10 MG ORAL TABLET 937258 ESCITALOP JO OXALATE Inactive AMOXICILLIN 500 MG ORAL TABLET take 1 tab po TID 08/05 AMOXICILLIN 500 MG ORAL TABLET 842279 AMOXICILLIN Inactive AMOXICILLIN 500 MG ORAL CAPSULE 1 tab by mouth 3 times daily 201 11/24/09 AMOXICILLIN 500 MG ORAL CAPSULE 070768 AMOXICILLIN Inactive ZITHROMAX 250 MG ORAL TABLET 2 po today, then 1 po q days 2-5 20 09/23/25 ZITHROMAX 250 MG ORAL TABLET 334140 AZITHROMYCIN [place] ctive ZITHROMAX 250 MG ORAL TABLET 2 po today, then 1 po q days 2-5 20 10/03/08 ZITHROMAX 250 MG ORAL TABLET 832143 AZITHROMYCIN [place] ctive AZITHROMYCIN 500 MG ORAL TABLET 1 PO q day x 6 days 20 03/02/23 AZITHROMYCIN 500 MG ORAL TABLET 0957987 AZITHROMYCIN Inactive BACTRIM 400-80 MG ORAL TABLET take one po BID BACTRIM 400- 80 MG ORAL TABLET 416703 SULFAMETHOXAZOLE-TRIMETHOPRIM Inactive AZITHROMYCIN 250 MG ORAL TABLET 2 po qd x 1 day, then 1 po q d x 4 days AZITHROMYCIN 250 MG ORAL TABLET 498857 AZITHROMY ALLISON Inactive PREDNISONE 20 MG ORAL TABLET 2 tabs daily for 3 days, 1 tab daily for 3 days, 1/2 tab daily for 2 days PREDNISONE 20 MG ORAL T ABLET 054774 PREDNISONE Inactive ZITHROMAX 250 MG ORAL TABLET 2 po today, then 1 po q days 2-5 20 06/08/16 ZITHROMAX 250 MG ORAL TABLET 701780 AZITHROMYCIN [place] ctive FLAGYL 500 MG ORAL TABLET 1 tablet by mouth two times daily 2014 FLAGYL 500 MG ORAL TABLET 948978 METRONIDAZOLE Inacti ve AUGMENTIN 875-125 MG ORAL TABLET 1 tab by mouth twice daily with food AUGMENTIN 875-125 MG ORAL TABLET 112069 AMOXICIL ELSA-POT CLAVULANATE Inactive NAPROXEN 500 MG ORAL TABLET one tab PO BID NAPROXEN 500 MG ORAL TABLET 526463 NAPROXEN Inactive PREDNISONE 20 MG ORAL TABLET 2 tabs daily for 3 days, 1 tab daily for 3 days, 1/2 tab daily for 2 days PREDNISONE 20 MG ORAL T ABLET 240899 PREDNISONE Inactive AZITHROMYCIN 250 MG ORAL TABLET 2 po qd x 1 day, then 1 po q d x 4 days AZITHROMYCIN 250 MG ORAL TABLET 596395 AZITHROMY ALLISON Inactive PREDNISONE 20 MG ORAL TABLET 2 tabs daily for 3 days, 1 tab daily for 3 days, 1/2 tab daily for 2 days PREDNISONE 20 MG ORAL T ABLET 594640 PREDNISONE Inactive ZITHROMAX Z-EMIL 250 MG ORAL TABLET 2 today, then 1 daily for 4 d ays ZITHROMAX Z-EMIL 250 MG ORAL TABLET 643433 AZITHROMYCIN Inactive CEFDINIR 300 MG ORAL CAPSULE 1 po BID x 10 days 12/18 CEFDINIR 300 MG ORAL CAPSULE 868666 CEFDINIR Inactive CEFDINIR 300 MG ORAL CAPSULE 1 po BID x 10 days CEFDINIR 300 MG ORAL CAPSULE 232612 CEFDINIR Inactive PREDNISONE 20 MG ORAL TABLET 2 tabs daily for 3 days, 1 tab daily for 3 days, 1/2 tab daily for 2 days PREDNISONE 20 MG ORAL T ABLET 034190 PREDNISONE Inactive BACTRIM DS 800-160 MG ORAL TABLET 1 tab by mouth twice daily 201 05/02/30 BACTRIM DS 800-160 MG ORAL TABLET 833116 TRIMETHOPRIM-SULFAMETHOXAZOLE Inactive ZITHROMAX Z-EMIL 250 MG ORAL TABLET 2 today, then 1 daily for 4 d ays ZITHROMAX Z-EMIL 250 MG ORAL TABLET 722765 AZITHROMYCIN Inactive TAMIFLU 75 MG ORAL CAPSULE 1 po BID x 5 days 0 TAMIFLU 75 MG ORAL CAPSULE 182206 OSELTAMIVIR PHOSPHATE Inactive CEFDINIR 300 MG ORAL CAPSULE 1 po BID x 10 days 01/03 CEFDINIR 300 MG ORAL CAPSULE 670561 CEFDINIR Inactive ZITHROMAX Z-EMIL 250 MG TABS Take two tablets today and then 1 tablet daily for 4 days ZITHROMAX Z-EMIL 250 MG TABS 741865 AZITHROM YCIN Inactive AMOXICILLIN 875 MG ORAL TABLET 1 tab by mouth twice daily 1 AMOXICILLIN 875 MG ORAL TABLET 628391 AMOXICILLIN Inactive Advance Directives Directive Description Start [...] A vaccine, unspecified formulation hepatitis B vaccine #1 given Engerix-B Adult hep atitis B vaccine, unspecified formulation DPT immunization #5 DTaP MMR (measles, mumps, rubella) virus immunization #2 Historical oral polio vaccine (OPV) #4 Historical ez ovirus vaccine, unspecified formulation DPT immunization #4 DTaP MMR (measles, mumps, rubella) virus immunization #1 Historical oral polio vaccine (OPV) #3 Historical ez ovirus vaccine, unspecified formulation DPT immunization #3 DTaP oral polio vaccine (OPV) #2 Historical ez ovirus vaccine, unspecified formulation DPT immunization #2 DTaP oral polio vaccine (OPV) #1 Historical ez ovirus vaccine, unspecified formulation DPT immunization #1 DTaP Vital Signs Date Name Value Unit Range [...] 1, CBC (INCL ... - Blood bank antibody screen, serum NO ANTIBODIES DETECTED ABO blood group O Rh antigen RH(D) POSITIVE Lab Report: ABO GROUP & RH TYPE, ANTIBOD Y SCREEN, RBCW/REFL 1, CBC (INCL ... - Chemistry hepatitis B surface antigen NON-REACTIVE NON-RE ACTIVE rapid plasma reagin antibody titer NON-REACTIVE NON-REACTIVE Lab Report: ABO GROUP & RH TYPE, ANTIBOD Y SCREEN, RBCW/REFL 1, CBC (INCL ... - Hematology hematocrit, blood 40.6 % 35.0-45.0 mean corpuscular volume, RBC 85.1 fL 80.0-10 0.0 mean corpuscular hemoglobin, RBC 27.5 pg 27. 0-33.0 mean corpuscular hemoglobin concentration, RBC 32.3 G/DL % 32.0-36.0 red blood cell distribution width 13.0 % 11 .0-15.0 platelet count 280 THOUSAND/UL 10*3/mm3 049-945 4548/02/18 mean platelet volume 11.6 fL 7.5-12.5 hemoglobin, blood 13.1 g/dL 11.7-15.5 leukocyte count, blood 10.3 THOUSAND/UL 10*3/mm3 3.8-10. 8 erythrocyte (RBC) count 4.77 MILLION/UL 10*6/mm3 3.80-5. 10 Lab Report: ABO GROUP & RH TYPE, [...] 5.42 Lab Report: CBC W/DIFF - Hematology erythrocyte (RBC) count 4.77 10^6/MM^3 10*6/mm3 3.80-5.8 0 leukocyte count, blood 8.2 10^3/MM^3 10*3/mm3 4.6-10.2 [...] 11 .6-14.8 platelet count 245 10^3/MM^3 10*3/mm3 185-154 8862/09/27 hemoglobin, blood 12.2 g/dL 12.0-16.0 hematocrit, blood 39.1 % 37.0-47.0 mean corpuscular volume, RBC 82 fL 80-97 mean corpuscular hemoglobin, RBC 25.6 pg 27. 0-31.2 mean corpuscular hemoglobin concentration, RBC 31.2 G/DL % 31.8-35.4 red blood cell distribution width 12.5 % 11 .6-14.8 platelet count 297 10^3/MM^3 10*3/mm3 825-456 6028/09/27 monocytes as percent of blood leukocytes 9.7 % 1.7-9.3 neutrophils as percent of blood leukocytes 55.9 % 42.2-75.2 leukocyte count, blood 7.6 10^3/MM^3 10*3/mm3 4.6-10.2 lymphocytes as percent of blood leukocytes 29.2 % 20.5-51.1 Lab Report: FSH/Adult/470, PROLACTIN - C hemistry follicle stimulating hormone, serum 1.4 m[iU]/mL Lab Report: LH/Adult/615 - Chemistry luteinizing hormone, serum 2.7 m[iU]/mL Lab Report: Thyroid Stimulating Hormone (L) - Chemistry TSH 0.95 m[iU]/mL 0.36-3.74 Lab Report: Thyroid Stimulating Hormone (L), UADIP W/MICRO, AUTO, Wet Pr ... - Chemistry protein, total urine random Negative mg/dL Negative RBC, urine, dipstick 1+ Negative TSH 1.16 m[iU]/mL 0.36-3.74 Lab Report: Thyroid Stimulating Hormone (L), UADIP W/MICRO, AUTO, Wet Pr ... - Urinalysis urine color Yellow Colorless;Lightyellow;St raw;Yellow appearance, urine Clear Clear specific gravity, urine >=1.030 1.000-1.030 urobilinogen, urine, semiquantitative (dipstick) 0.2 E .U./dL Normal leukocyte esterase, urine, by dipstick Negative Negative nitrite, urine, semiquantitative Negative Neg ative glucose, urine, semiquantitative Negative Neg ative ketones, urine, by test strip 4+ Negati ve bilirubin, urine Negative Negative pH, urine, semiquantitative 6.0 5.0-8.5 Office Visit: [...] mg/dL Encounters Code Encounter Date Provider Facility CPT-53776 Level 4 Est. Patient 16:18:17 [employer] Myrna maldonado MD [facility] CPT-42311 Level 4 Est. Patient 16:39:44 [employer] Jose Zhong MD [facility] CPT-49835 [id number] Vst-Est Level IV 13:45:38 C Tali Devi PA-C [facility] CPT-55224 [id number] Vst-Est Level III 09:41:31 CDT Arie Casper MD [facility] CPT-60188 86554-Enu Vst-Est Level III 18:20:11 CDT [facility] CPT-36319 83623-Ecj Vst-Est Level III 17:21:41 CDT [facility] CPT-62693 17530-Fgn Vst-Est Level IV 13:30:22 C DT Arie Casper MD [facility] CPT-96146 Level 4 Est. Patient 13:05:26 CDT Myrna maldonado MD [facility] CPT-48627 65210-Fgh Vst-Est Level IV 20:50:21 C DT Arie Casper MD [facility] CPT-47593 Level 3 Est. Patient 11:49:34 [employer] Jessica boyd [facility] CPT-15224 Level 3 Est. Patient 14:55:50 [employer]BER Jose Zhong MD [facility] CPT-12582 Level 3 Est. Patient 10:21:41 [employer]BER Arie mcqueen MD [facility] CPT-21526 Level 3 Est. Patient 11:35:15 [employer]HOUSE [employer]BER Arie mcqueen MD [facility] CPT-96144 Level 3 Est. Patient 15:40:28 CDT Brii Are ll [facility] CPT-18462 Level 3 Est. Patient 16:40:36 CDT Arie mcqueen MD [facility] CPT-83913 Level 4 Est. Patient 15:29:22 [employer]HOUSE [employer]BER Arie mcqueen MD [facility] CPT-26653 Level 3 Est. Patient 15:18:16 [employer]HOUSE TE[employer]BER Jono black [facility] CPT-73087 Level 4 Est. Patient 12:08:40 [employer]HOUSE TE[employer]BER Brii Are ll [facility] CPT-78910 Level 3 Est. Patient 09:24:42 CDT Brii Are [facility] CPT-95966 Level 3 Est. Patient 09:12:56 CDT Arie mcqueen MD [facility] CPT-34955 Level 3 Est. Patient 16:40:54 CDT Jose Zhong MD [facility] CPT-87140 Level 2 Est. Patient 13:01:13 CDT Brii Are [facility] CPT-58663 Level 3 Est. Patient 11:55:30 [employer]HOUSE [employer]BER Jono black [facility] CPT-52919 Level 3 Est. Patient 09:52:36 W[employer]HOUSE TE[employer] MEMBER Brii Are ll [facility] CPT-78004 Level 3 Est. Patient 16:25:33 [employer]HOUSE TE[employer]BER Rich Rosales MD [facility] CPT-44303 Level 3 Est. Patient 20:33:55 CDT Arie mcqueen MD [facility] CPT-31792 Level 3 Est. Patient 14:18:20 CDT Rich Rosales MD [facility] CPT-61847 Level 4 Est. Patient 09:34:31 CDT Arie mcqueen MD [facility] CPT-84196 Level 3 Est. Patient 09:08:55 [employer]SE [employer]BER Liliana vincent MD PhD [facility] CPT-92607 Level 3 Est. Patient 16:44:07 [employer]HOUSE [employer]BER Arie mcqueen MD [facility] CPT-56840 Level 3 Est. Patient 10:44:27 CDT Arie mcqueen MD [facility] CPT-01549 Level 3 Est. Patient 08:55:41 CDT Jose Zhong MD [facility] CPT-37926 Level 3 Est. Patient 18:37:31 CDT Liliana vincent MD [facility] CPT-48918 Level 3 Est. Patient 14:28:23 CDT Abelardo HERNANDEZ [facility] CPT-49683 Level 3 Est. Patient 15:18:13 [employer]HOUSE [employer]BER Arie mcqueen MD [facility] CPT-96642 Level 3 Est. Patient 10:11:29 [employer]HOUSE [employer]BER Arie mcqueen MD [facility] CPT-44219 Level 3 Est. Patient 10:55:57 [employer]BER Jono black DO [facility] CPT-22348 Level 3 Est. Patient 17:29:05 CDT Arie mcqueen MD [facility] Procedures Code Procedure Name Date Entry Date Standard Desc ription CPT-30827 Sono OB transvag XRAY USE ONLY 17:12:53 CS T CPT-54324 Sono OB transvag XRAY USE ONLY 17:11:12 CS T CPT-80446 UHCG Urine - MARC ONLY 12:13:59 [employer]HOUSE TE[employer]BER 12/11 CPT-89537 Spec Collection and Handling Fee 12:13:[address] CPT-27715 Visit 12:13:59 [employer] CPT-28685 First Vx - Ix admin via ID I M or jet injects without counseling by physician 13:00:15 [employer]HOU[employer]BER CPT-89819 Flulaval Intramuscular Injectable 13:00:15 [employer]HOUSE TE[employer]BER CPT-98506 Urine Dip (Floor Use Only) 12:20:20 [employer]HOUSE TE[employer]BER 201 06/03/24 CPT-82466 Sono Soft Tissue Head and Neck - XRAY US E ONLY 17:10:14 CDT CPT-89410 Ear Wash with irrigation 17:21:41 CDT 07/04 CPT-47979 Nexplanon Removal 15:40:28 CDT CPT-26219 Sono transvag pelvis non OB uterus ovari es cervix - XRAY USE ONLY 08:58:14 [employer] CPT-16208 UA w micro - LAB USE ONLY 16:04:56 [employer]HOUSE TE[employer]BER 2015 CPT-66178 Wet Prep/GEN - LAB USE ONLY 16:04:56 [employer]HOUSE [employer]BER 20 08/10/29 CPT-88076 First Vx - Ix admin via ID I M or jet injects without counseling by physician 16:57:10 CDT CPT-08048 Fluzone Preservative Free Intramuscular Suspension 16:57:10 CDT CPT-J0696 Rocephin 1000 mg (Ceftriaxone) 11:49:23 CDT CPT-J1040 Depo Medrol 80 mg (Methyl Prednisolone A cetate) 11:49:23 CDT CPT-J1100 Decadron 8mg (Dexamethasone) 11:49:23 CDT 2 CPT-68282 Abx/Therapy Injection 11:49:23 CDT CPT-41032 Abx/Therapy Injection 11:49:23 CDT CPT-76201 Abd compl w upright 09:07:26 [employer] CPT-19751 Ear Wash 16:12:47 [employer]SE [employer]BER CPT-OV Office Visit 11:12:01 CDT CPT-OV Office Visit 15:30:23 CDT CPT-90046 Sono pelvis non OB uterus ovaries cervix 15:50:44 CDT CPT-67776 Hand comp min 3V 16:42:32 CDT CPT-17755 Abd compl w upright 12:17:01 CDT CPT-21915 Nexplanon Placement 15:07:39 [employer]SE [employer] CPT-11913 Removal of IUD 15:07:39 [employer]HOUSE [employer] CPT-33295 TB Tubersol 12:09:32 CDT CPT-24380 TB Tubersol 13:55:43 CDT
--- OUTSIDE RECORDS SUMMARY | 2020-03-03 06:44 | XMS REPORT | Clinical Summary ---
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 DILAUDID Severe Active Brii MARROQUIN RN Conditions [...] quadrant Urinary frequency 788.41 Inactive Roseann Crawford [facility] Urinary frequency Urinary frequency 788.41 Resolved Jose [...] Vaccination for Prophylaxis V04.81 Inactive Brii Petrona CHIEF ENGINEER PRODUCTION Need for prophylactic vaccin ation and inoculation [...] Dysuria Pelvic pain, acute 789.09 Resolved Jose erbolledo MD Abdominal pain, other specified site; multiple [...] removal ICD-V25.42 Inactive Liliana Estrada MD PhD Diarrhea ICD-787.91 Inactive Jose Marcelo Thumb pain, [...] ICD-780.79 Inactive Jose Zhong MD 201 06/26/01 Abdominal pain ICD-789.00 Inactive Jose monreal MD Insect bite ICD-919.4 Inactive Jose Zhong MD [...] 3-4 times per day 12/11 PYRIDOXINE HCL 24366730397 Active Myrna Roberto MD Active UNISOM SLEEPTABS 25 MG ORAL TABLET one tab PO qhs DOXYLAMINE SUCCINATE (SLEEP) 53924455606 Active Myrna Roberto MD Active TYLENOL 325 MG ORAL CAPSULE PRN ACETAMINOPHEN 000 67476272 Active Brii Pacheco Active ESCITALOPRAM OXALATE 10 MG ORAL TABLET take 1 tab po qhs for mod ESCITALOPRAM OXALATE 87459746157 No Longer Active Brii Pacheco Active ALPRAZOLAM 0.25 MG ORAL TABLET 1 tablet by mouth twice a day as needed for stress/anxiety ALPRAZOLAM 88306110042 No Longer Active Brii Pacheco Active PROTONIX 40 MG ORAL TABLET DELAYED RELEASE 1 pill by m outh daily, for acid reflux PANTOPRAZOLE SODIUM 04417352151 No Longer Activ e Brii Tara Active DIFLUCAN 100 MG ORAL TABLET 1 tablet by mouth daily, R EPEAT 2ND DOSE IN 7 DAYS IF STILL SYMPTOMATIC FLUCONAZOLE 47123610123 No Long er Active Nilam Raida Active KEFLEX 500 MG ORAL CAPSULE 1 po tid CEPHALEXI N 30658412201 No Longer Active Tali Devi PA-C Active CONCEPT DHA 53.5-38-1 MG ORAL CAPSULE 1 tablet daily [id number] 3 06479594064 Active Oxana Souza LPN Active AMOXICILLIN 875 MG ORAL TABLET 1 tab by mouth twice daily 1 AMOXICILLIN 69911615568 No Longer Active Brii Russ APRN Active TUSSIONEX PENNKINETIC ER 10-8 MG/5ML ORAL SUSPENSION E XTENDED RELEASE 5ml po q12hr PRN Cough HYDROCOD POLST-CHLORPHEN POLST 5 5426434623 No Longer Active Myrna Roberto MD Active ZITHROMAX Z-EMIL 250 MG TABS Take two tablets today and then 1 tablet daily for 4 days AZITHROMYCIN 57448958915 No Longer Active Flaco Rosales MD Active GUAIFENESIN DM 400-20 MG ORAL TABLET 1 pill by mouth t wice daily, if needed for cough DEXTROMETHORPHAN-GUAIFENESIN 50570114747 No Longer Active Rich Rosales MD Active CEFDINIR 300 MG ORAL CAPSULE 1 po BID x 10 days CEFDINIR 80596530174 No Longer Active Jessica Heaton APRN Active CHERATUSSIN AC 100-10 MG/5ML ORAL SYRUP 1 tsp by mouth every 4 hours as needed for cough GUAIFENESIN-CODEINE 32802995680 No Longe r Active Jessica Heaton APRN Active TAMIFLU 75 MG ORAL CAPSULE 1 po BID x 5 days 0 OSELTAMIVIR PHOSPHATE 44639407360 No Longer Active Jose Zhong MD Activ e ZITHROMAX Z-EMIL 250 MG ORAL TABLET 2 today, then 1 daily for 4 d ays AZITHROMYCIN 16154415806 No Longer Active Arie Casper MD Active PROTONIX 40 MG ORAL TABLET DELAYED RELEASE 1 po q a.m. PANTOPRAZOLE SODIUM 41047062542 No Longer Active Arie Casper MD Active BACTRIM DS 800-160 MG ORAL TABLET 1 tab by mouth twice daily 201 05/02/30 TRIMETHOPRIM-SULFAMETHOXAZOLE 55839752159 No Longer Active R KELLIE Sandoval Active NEXPLANON IMPLANT right arm subcutaneously ETONOGESTREL IMPL 57395047325 No Longer Active Brii Russ APRN Active TUSSIONEX PENNKINETIC ER 10-8 MG/5ML ORAL SUSPENSION E XTENDED RELEASE 5ml po q12hr PRN Cough HYDROCOD POLST-CHLORPHEN POLST 5 6550863854 No Longer Active Brii Russ CHIEF ENGINEER PRODUCTION Active CETIRIZINE HCL 10 MG ORAL TABLET 1 po qd PRN Allergies CETIRIZINE HCL 22396996550 No Longer Active Brii Russ APRN Activ e PREDNISONE 20 MG ORAL TABLET 2 tabs daily for 3 days, 1 tab daily for 3 days, 1/2 tab daily for 2 days PREDNISONE 81062729248 No Longer Active Arie Casper MD Active LOMOTIL 2.5-0.025 MG ORAL TABLET 1 tab po four times a day as needed for diarrhea DIPHENOXYLATE-ATROPINE 37348929461 No Lo nger Active Arie Casper MD Active ZOLOFT 50 MG ORAL TABLET 1 tablet by mouth daily 12/08 SERTRALINE HCL 73958655083 No Longer Active Arie Casper MD Ac tive NAPROXEN 500 MG ORAL TABLET Take 1 tab BID NAPR OXEN 02413612951 No Longer Active Arie Casper MD Active CEFDINIR 300 MG ORAL CAPSULE 1 po BID x 10 days CEFDINIR 84504385949 No Longer Active Brii Russ APRN Active PREDNISONE 20 MG ORAL TABLET 1 tablet daily for airway inflammat ion PREDNISONE 71194203770 No Longer Active Brii Russ APRN A ctive CEFDINIR 300 MG ORAL CAPSULE 1 po BID x 10 days CEFDINIR 81046064427 No Longer Active Jono Gagnon DO Active FLONASE 50 MCG/ACT NASAL SUSPENSION 1 spray each nostr il twice daily for allergies and runny nose until gone FLUT ICASONE PROPIONATE 02031548889 No Longer Active Jono Gagnon DO Active ALPRAZOLAM 0.25 MG ORAL TABLET 1 tablet by mouth every 8 hours as needed for stress ALPRAZOLAM 60432825155 No Longer Active Jono Gagnon DO Active ZITHROMAX Z-EMIL 250 MG ORAL TABLET 2 today, then 1 daily for 4 d ays AZITHROMYCIN 85061158419 No Longer Active Arie Casper MD Active PREDNISONE 20 MG ORAL TABLET 2 tabs daily for 3 days, 1 tab daily for 3 days, 1/2 tab daily for 2 days PREDNISONE 97561390137 No Longer Active Brii Areboris CHIEF ENGINEER PRODUCTION Active PREDNISONE 20 MG ORAL TABLET 1 tablet twice daily for 2 days, then 1 tablet once daily for 2 days PREDNISONE 83942999790 No Longer Active Brii Russ CHIEF ENGINEER PRODUCTION Active PROMETHAZINE HCL 12.5 MG ORAL TABLET 1 tablet by mouth every 6 hours as needed for nausea/vomiting PROMETHAZINE HCL 27347171233 No L onger Active Jono Gagnon DO Active CITRATE OF MAGNESIA ORAL SOLUTION 1 bottle today for constipatio n MAGNESIUM CITRATE 49267247960 No Longer Active Jono Gagnon DO Active ZOFRAN 4 MG ORAL TABLET 1 TAB PO Q 6 HRS PRN NAUSEA 07/10/15 ONDANSETRON HCL 98796695137 No Longer Active Brii Arell CHIEF ENGINEER PRODUCTION Acti ve LOMOTIL 2.5-0.025 MG ORAL TABLET 1 to 2 four times a day as needed for diarrhea DIPHENOXYLATE-ATROPINE 43273287884 No Longer Active January Russ APRN Active AMOXICILLIN 500 MG ORAL TABLET 2 tabs twice a day for 10 days 20 07/09/11 AMOXICILLIN 66477557973 No Longer Active Brii Arell CHIEF ENGINEER PRODUCTION Active CYCLOBENZAPRINE HCL 10 MG ORAL TABLET 1/2 - 1 tablet b y mouth three times daily as needed for muscle spasm/pain CYCLOBENZAPRINE HCL 56556061543 No Longer Active Arie Casper MD Active LOMOTIL 2.5-0.025 MG ORAL TABLET 1 to 2 four times a day as needed for diarrhea DIPHENOXYLATE-ATROPINE 00056699004 No Longer Active Fozia Casper MD Active MACROBID 100 MG ORAL CAPSULE 1 cap by mouth twice daily NITROFURANTOIN MONOHYD MACRO 71590520040 No Longer Active Arie Casper MD Active ZYRTEC ALLERGY 10 MG ORAL CAPSULE 1 po qd CE TIRIZINE HCL 86148405550 No Longer Active Arie Casper MD Active AZITHROMYCIN 250 MG ORAL TABLET 2 po qd x 1 day, then 1 po q d x 4 days AZITHROMYCIN 41856107351 No Longer Active Waynellarlen salgado CHIEF ENGINEER PRODUCTION Active PREDNISONE 20 MG ORAL TABLET 2 tabs daily for 3 days, 1 tab daily for 3 days, 1/2 tab daily for 2 days PREDNISONE 29153272574 No Longer Active Waynellarlen Heaton CHIEF ENGINEER PRODUCTION Active PROMETHAZINE HCL 25 MG ORAL TABLET 1 four times a day as nee ded for vomiting PROMETHAZINE HCL 59826658054 No Longer Active Myrna Roberto MD Active BACTRIM DS 800-160 MG ORAL TABLET 1 twice a day 05/30 SULFAMETHOXAZOLE-TRIMETHOPRIM 42241652858 No Longer Active Myrna Roberto MD Active VICKS DAYQUIL SEVERE COLD/FLU TABLET 1 tab every 6 hours prn 201 02/22/17 [id number]-APAP TABS 77653740472 No Longer Active K fany Roberto MD Active GUAIFENESIN-CODEINE 100-10 MG/5ML ORAL SYRUP 2 tsp every 6 hours prn GUAIFENESIN-CODEINE 65008313231 No Longer Active Myrna Roberto MD Active NAPROXEN 500 MG ORAL TABLET one tab PO BID NAPR OXEN 11594471056 No Longer Active Myrna Roberto MD Active AUGMENTIN 875-125 MG ORAL TABLET 1 tab by mouth twice daily with food AMOXICILLIN-POT CLAVULANATE 32135208088 No Longer Act zaid Liliana Estrada MD PhD Active AMOXICILLIN 500 MG ORAL CAPSULE 1 tab by mouth 3 times daily 201 02/21/05 AMOXICILLIN 30609262846 No Longer Active Liliana Estrada MD PhD Active TESSALON PERLES 100 MG ORAL CAPSULE 1 tablet by mouth 3 times da cory BENZONATATE 72197081948 No Longer Active Liliana Estrada MD PhD Active FLAGYL 500 MG ORAL TABLET 1 tablet by mouth two times daily 2014 METRONIDAZOLE 97329705010 No Longer Active Nilamnory Plattida Espinoza tive ZITHROMAX 250 MG ORAL TABLET 2 po today, then 1 po q days 2-5 20 06/08/16 AZITHROMYCIN 28348222623 No Longer Active Arie Casper MD Active VITAMINS 0.8 MG ORAL TABLET take 1 tab po qday [id number] 92411782073 No Longer Active Arie Casper MD Active IBUPROFEN 800 MG ORAL TABLET take one po Q 8 hours 201 02/01/16 IBUPROFEN 36194767860 No Longer Active Arie Casper MD Acti ve [facility] TUSSIN COUGH/COLD CF 5-10-100 MG/5ML ORAL LIQUID 2 teasp oons every 4 hours [id number] 09920483047 No Longer Active Blaine Casper MD Active COMTREX COLD/COUGH DAY/NITE MS 5-2-10-325 MG ORAL 2 caps deja ry 4 hours [id number]-APAP 93964586868 No Longer Active Landon Casper MD Active CHLORASEPTIC MAX SORE THROAT 15-10 MG MOUTH/THROAT LOZENGE 1 every 2 hours prn BENZOCAINE-MENTHOL 84194561820 No Longer Active Arie Casper MD Active PREDNISONE 20 MG ORAL TABLET 2 tabs daily for 3 days, 1 tab daily for 3 days, 1/2 tab daily for 2 days PREDNISONE 47131033105 No Longer Active Jose Zhong MD Active AZITHROMYCIN 250 MG ORAL TABLET 2 po qd x 1 day, then 1 po q d x 4 days AZITHROMYCIN 07984833287 No Longer Active Jose Mcwilliams MD Active ZOFRAN ODT 4 MG ORAL TABLET DISINTEGRATING 1 po q6hr PRN Nausea ONDANSETRON 06430216489 No Longer Active Rich Rosales MD Active ZOFRAN 4 MG ORAL TABLET 1 tablet every 4 hours ONDANSETRON HCL 85292127243 No Longer Active Rich Rosales MD Activ e MUCINEX 600 MG ORAL TABLET EXTENDED RELEASE 12 HOUR Ta ke 1-2 tablets every 12 hours GUAIFENESIN 69044453789 No Longer Active Rich Rosales MD Active BACTRIM 400-80 MG ORAL TABLET take one po BID SULFAMETHOXAZOLE-TRIMETHOPRIM 56695796146 No Longer Active Abelardo HERNANDEZ Active AZITHROMYCIN 500 MG ORAL TABLET 1 PO q day x 6 days 20 03/02/23 AZITHROMYCIN 95184506268 No Longer Active Tin HERNANDEZ Activ e ZITHROMAX 250 MG ORAL TABLET 2 po today, then 1 po q days 2-5 20 10/03/08 AZITHROMYCIN 06469401006 No Longer Active Arie Casper MD Active ZITHROMAX 250 MG ORAL TABLET 2 po today, then 1 po q days 2-5 20 09/23/25 AZITHROMYCIN 99817811970 No Longer Active Arie Casper MD Active AMOXICILLIN 500 MG ORAL CAPSULE 1 tab by mouth 3 times daily 201 11/24/09 AMOXICILLIN 14065181866 No Longer Active Arie Casper MD Active BACTRIM DS 800-160 MG ORAL TABLET 1 tab by mouth twice daily 201 11/03/14 TRIMETHOPRIM-SULFAMETHOXAZOLE 30291300894 No Longer Active Fozia Casper MD Active AMOXICILLIN 500 MG ORAL TABLET take 1 tab po TID 08/05 AMOXICILLIN 45338603261 No Longer Active Arie Casper MD Acti [...] 4 hours ZOFRAN 4 MG ORAL TABLET 898183 ONDANSETRON HCL Inactive ZOFRAN ODT 4 MG [...] COLD/COUGH DAY/NITE MS 5-2-10-325 MG ORA L [id number] Inactive [facility] TUSSIN COUGH/COLD CF 5-10-100 MG/5ML ORAL LIQUID 2 teasp oons every 4 hours [facility] TUSSIN COUGH/COLD CF 5-10-100 MG/5ML ORAL LI QUID [id number] Inactive IBUPROFEN 800 MG ORAL TABLET take one po Q 8 hours 201 02/01/16 IBUPROFEN 800 MG ORAL TABLET IBUPROFEN Inactive VITAMINS 0.8 MG ORAL TABLET take 1 tab po qday VITAMINS 0.8 MG ORAL TABLET [id number] E-FA Inactive TESSALON PERLES 100 MG ORAL CAPSULE 1 tablet by mouth 3 times da cory TESSALON PERLES 100 MG ORAL CAPSULE 19730630 BENZONATATE Inactive AMOXICILLIN 500 MG ORAL CAPSULE 1 tab by mouth 3 times daily 201 02/21/05 AMOXICILLIN 500 MG ORAL CAPSULE 439422 AMOXICILLIN Inactive GUAIFENESIN-CODEINE 100-10 MG/5ML ORAL SYRUP 2 tsp every 6 hours prn GUAIFENESIN-CODEINE 100-10 MG/5ML ORAL SYRUP 011035 GUAIFENESIN-CODEINE Inactive VICKS DAYQUIL SEVERE COLD/FLU TABLET 1 tab every 6 hours prn 201 02/22/17 VICKS DAYQUIL SEVERE COLD/FLU TABLET PHENYLEPHRI [id number]-APAP TABS Inactive BACTRIM DS 800-160 MG ORAL TABLET 1 twice a day 05/30 BACTRIM DS 800-160 MG ORAL TABLET 174048 SULFAMETHOXAZOLE-TRIMETHOPRIM Inactiv e PROMETHAZINE HCL 25 MG ORAL TABLET 1 four times a day as nee ded for vomiting PROMETHAZINE HCL 25 MG ORAL TABLET 700377 PROMETHAZINE HCL Inactive ZYRTEC ALLERGY 10 MG ORAL CAPSULE 1 po qd ZYRTEC ALLERGY 10 MG ORAL CAPSULE CETIRIZINE HCL Inactive MACROBID 100 MG ORAL CAPSULE 1 cap by mouth twice daily MACROBID 100 MG ORAL CAPSULE 7468128 NITROFURANTOIN MONOHYD MACRO In active LOMOTIL 2.5-0.025 MG ORAL TABLET 1 to 2 four times a day as needed for diarrhea LOMOTIL 2.5-0.025 MG ORAL TABLET 9911010 DIPHENOXYLATE-ATROPINE Inactive CYCLOBENZAPRINE HCL 10 MG ORAL TABLET 1/2 - 1 tablet b y mouth three times daily as needed for muscle spasm/pain CYCLOBEN ZAPRINE HCL 10 MG ORAL TABLET 953763 CYCLOBENZAPRINE HCL Inactive AMOXICILLIN 500 MG ORAL TABLET 2 tabs twice a day for 10 days 20 07/09/11 AMOXICILLIN 500 MG ORAL TABLET 598592 AMOXICILLIN I nactive LOMOTIL 2.5-0.025 MG ORAL TABLET 1 to 2 four times a day as needed for diarrhea LOMOTIL 2.5-0.025 MG ORAL TABLET 0950271 DIPHENOXYLATE-ATROPINE Inactive ZOFRAN 4 MG ORAL TABLET 1 TAB PO Q 6 HRS PRN NAUSEA 20 07/10/15 ZOFRAN 4 MG ORAL TABLET 587247 ONDANSETRON HCL Inactive CITRATE OF MAGNESIA ORAL SOLUTION 1 bottle today for constipatio n CITRATE OF MAGNESIA ORAL SOLUTION 0382364 MAGNESIUM CITR ATE Inactive PROMETHAZINE HCL 12.5 MG ORAL TABLET 1 tablet by mouth every 6 hours as needed for nausea/vomiting PROMETHAZINE HCL 12.5 MG ORA L TABLET 655754 PROMETHAZINE HCL Inactive PREDNISONE 20 MG ORAL TABLET 1 tablet twice daily for 2 days, then 1 tablet once daily for 2 days PREDNISONE 20 MG ORAL TABLET 651929 PREDNISONE Inactive ALPRAZOLAM 0.25 MG ORAL TABLET 1 tablet by mouth every 8 hours as needed for stress ALPRAZOLAM 0.25 MG ORAL TABLET 134528 ALPRA ZOLAM Inactive FLONASE 50 MCG/ACT NASAL SUSPENSION 1 spray each nostr il twice daily for allergies and runny nose until gone FLON ASE 50 MCG/ACT NASAL SUSPENSION FLUTICASONE PROPIONATE Inactive PREDNISONE 20 MG ORAL TABLET 1 tablet daily for airway inflammat ion PREDNISONE 20 MG ORAL TABLET 260102 PREDNISONE [place] ctive NAPROXEN 500 MG ORAL TABLET Take 1 tab BID NAPROXEN 500 MG ORAL TABLET 426213 NAPROXEN Inactive ZOLOFT 50 MG ORAL TABLET 1 tablet by mouth daily 12/08 ZOLOFT 50 MG ORAL TABLET 915638 SERTRALINE HCL Inactive LOMOTIL 2.5-0.025 MG ORAL TABLET 1 tab po four times a day as needed for diarrhea LOMOTIL 2.5-0.025 MG ORAL TABLET 2309313 DIPHENOXYLATE-ATROPINE Inactive CETIRIZINE HCL 10 MG ORAL TABLET 1 po qd PRN Allergies CETIRIZINE HCL 10 MG ORAL TABLET 8557744 CETIRIZINE HCL Inactiv e TUSSIONEX PENNKINETIC ER 10-8 MG/5ML ORAL SUSPENSION E XTENDED RELEASE 5ml po q12hr PRN Cough TUSSIONEX PENNKINETI C ER 10-8 MG/5ML ORAL SUSPENSION EXTENDED RELEASE HYDROCOD POLST-CHLORPHEN POLST I nactive NEXPLANON IMPLANT right arm subcutaneously NEXPLANON IMPLANT ETONOGESTREL IMPL Inactive PROTONIX 40 MG ORAL TABLET DELAYED RELEASE 1 po q a.m. PROTONIX 40 MG ORAL TABLET DELAYED RELEASE 053348 PANTOPRAZOLE SODI UM Inactive CHERATUSSIN AC 100-10 MG/5ML ORAL SYRUP 1 tsp by mouth every 4 hours as needed for cough CHERATUSSIN AC 100-10 MG/5ML ORAL SYRUP 9 93129 GUAIFENESIN-CODEINE Inactive GUAIFENESIN DM 400-20 MG ORAL [...] tid K EFLEX 500 MG ORAL CAPSULE 422749 CEPHALEXIN Inactive DIFLUCAN 100 MG ORAL TABLET 1 tablet by mouth daily, R EPEAT 2ND DOSE IN 7 DAYS IF STILL SYMPTOMATIC DIFLUCAN 100 MG ORAL TABLET 25596 8 FLUCONAZOLE Inactive PROTONIX 40 MG ORAL TABLET DELAYED RELEASE 1 pill by m outh daily, for acid reflux PROTONIX 40 MG ORAL TABLET DELAYED RELEAS E 830676 PANTOPRAZOLE SODIUM Inactive ALPRAZOLAM 0.25 MG ORAL TABLET 1 tablet by mouth twice a day as needed for stress/anxiety ALPRAZOLAM 0.25 MG ORAL TABLET 868674 ALPRAZOLAM Inactive ESCITALOPRAM OXALATE 10 MG ORAL TABLET take 1 tab po qhs for mod ESCITALOPRAM OXALATE 10 MG ORAL TABLET 112392 ESCITALOP JO OXALATE Inactive AMOXICILLIN 500 MG ORAL TABLET take 1 tab po TID 08/05 AMOXICILLIN 500 MG ORAL TABLET 790197 AMOXICILLIN Inactive AMOXICILLIN 500 MG ORAL CAPSULE 1 tab by mouth 3 times daily 201 11/24/09 AMOXICILLIN 500 MG ORAL CAPSULE 315960 AMOXICILLIN Inactive ZITHROMAX 250 MG ORAL TABLET 2 po today, then 1 po q days 2-5 20 09/23/25 ZITHROMAX 250 MG ORAL TABLET 254028 AZITHROMYCIN [place] ctive ZITHROMAX 250 MG ORAL TABLET 2 po today, then 1 po q days 2-5 20 10/03/08 ZITHROMAX 250 MG ORAL TABLET 545788 AZITHROMYCIN [place] ctive AZITHROMYCIN 500 MG ORAL TABLET 1 PO q day x 6 days 20 03/02/23 AZITHROMYCIN 500 MG ORAL TABLET 5245754 AZITHROMYCIN Inactive BACTRIM 400-80 MG ORAL TABLET take one po BID BACTRIM 400- 80 MG ORAL TABLET 185046 SULFAMETHOXAZOLE-TRIMETHOPRIM Inactive AZITHROMYCIN 250 MG ORAL TABLET 2 po qd x 1 day, then 1 po q d x 4 days AZITHROMYCIN 250 MG ORAL TABLET 321254 AZITHROMY ALLISON Inactive PREDNISONE 20 MG ORAL TABLET 2 tabs daily for 3 days, 1 tab daily for 3 days, 1/2 tab daily for 2 days PREDNISONE 20 MG ORAL T ABLET 062037 PREDNISONE Inactive ZITHROMAX 250 MG ORAL TABLET 2 po today, then 1 po q days 2-5 20 06/08/16 ZITHROMAX 250 MG ORAL TABLET 241106 AZITHROMYCIN [place] ctive FLAGYL 500 MG ORAL TABLET 1 tablet by mouth two times daily 2014 FLAGYL 500 MG ORAL TABLET 067662 METRONIDAZOLE Inacti ve AUGMENTIN 875-125 MG ORAL TABLET 1 tab by mouth twice daily with food AUGMENTIN 875-125 MG ORAL TABLET 629133 AMOXICIL ELSA-POT CLAVULANATE Inactive NAPROXEN 500 MG ORAL TABLET one tab PO BID NAPROXEN 500 MG ORAL TABLET 408063 NAPROXEN Inactive PREDNISONE 20 MG ORAL TABLET 2 tabs daily for 3 days, 1 tab daily for 3 days, 1/2 tab daily for 2 days PREDNISONE 20 MG ORAL T ABLET 002222 PREDNISONE Inactive AZITHROMYCIN 250 MG ORAL TABLET 2 po qd x 1 day, then 1 po q d x 4 days AZITHROMYCIN 250 MG ORAL TABLET 871410 AZITHROMY ALLISON Inactive PREDNISONE 20 MG ORAL TABLET 2 tabs daily for 3 days, 1 tab daily for 3 days, 1/2 tab daily for 2 days PREDNISONE 20 MG ORAL T ABLET 276282 PREDNISONE Inactive ZITHROMAX Z-EMIL 250 MG ORAL TABLET 2 today, then 1 daily for 4 d ays ZITHROMAX Z-EMIL 250 MG ORAL TABLET 444575 AZITHROMYCIN Inactive CEFDINIR 300 MG ORAL CAPSULE 1 po BID x 10 days 12/18 CEFDINIR 300 MG ORAL CAPSULE 335129 CEFDINIR Inactive CEFDINIR 300 MG ORAL CAPSULE 1 po BID x 10 days CEFDINIR 300 MG ORAL CAPSULE 073314 CEFDINIR Inactive PREDNISONE 20 MG ORAL TABLET 2 tabs daily for 3 days, 1 tab daily for 3 days, 1/2 tab daily for 2 days PREDNISONE 20 MG ORAL T ABLET 096919 PREDNISONE Inactive BACTRIM DS 800-160 MG ORAL TABLET 1 tab by mouth twice daily 201 05/02/30 BACTRIM DS 800-160 MG ORAL TABLET 075796 TRIMETHOPRIM-SULFAMETHOXAZOLE Inactive ZITHROMAX Z-EMIL 250 MG ORAL TABLET 2 today, then 1 daily for 4 d ays ZITHROMAX Z-EMIL 250 MG ORAL TABLET 751853 AZITHROMYCIN Inactive TAMIFLU 75 MG ORAL CAPSULE 1 po BID x 5 days 0 TAMIFLU 75 MG ORAL CAPSULE 484773 OSELTAMIVIR PHOSPHATE Inactive CEFDINIR 300 MG ORAL CAPSULE 1 po BID x 10 days 01/03 CEFDINIR 300 MG ORAL CAPSULE 934677 CEFDINIR Inactive ZITHROMAX Z-EMIL 250 MG TABS Take two tablets today and then 1 tablet daily for 4 days ZITHROMAX Z-EMIL 250 MG TABS 686678 AZITHROM YCIN Inactive AMOXICILLIN 875 MG ORAL TABLET 1 tab by mouth twice daily 1 AMOXICILLIN 875 MG ORAL TABLET 819199 AMOXICILLIN Inactive Advance Directives Directive Description Start [...] 11 .0-15.0 platelet count 280 THOUSAND/UL 10*3/mm3 890-535 6526/02/18 mean platelet volume 11.6 fL 7.5-12.5 Lab [...] 11 .6-14.8 platelet count 245 10^3/MM^3 10*3/mm3 134-343 2516/09/27 leukocyte count, blood 7.6 10^3/MM^3 10*3/mm3 4.6-10.2 [...] (L) - Chemistry sodium, serum 138 mmol/L 200-837 3217/04/11 carbon dioxide, venous blood 27.1 mmol/L 21.0-32 [...] mg/dL Encounters Code Encounter Date Provider Facility CPT-30155 Level 4 Est. Patient 16:18:17 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 OPERATOR Myrna maldonado MD [facility] CPT-90766 Level 4 Est. Patient 16:39:44 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 OPERATOR Jose Zhong MD [facility] CPT-86629 48992-Ons Vst-Est Level IV 13:45:[address] Tali Devi PA-C [facility] CPT-66874 65186-Hgm Vst-Est Level III 09:41:31 CDT Arie Casper MD [facility]-17138 82463-Gbd Vst-Est Level III 18:20:11 CDT Me lobito Russ [facility]-46821 95608-Veh Vst-Est Level III 17:21:41 CDT Me lobito Russ [facility] CPT-58458 92932-Epr Vst-Est Level IV 13:30:22 C DT Arie Casper MD [facility] CPT-88139 Level 4 Est. Patient 13:05:26 CDT Myrna maldonado [facility] [place]-95529 21489-Cpc Vst-Est Level IV 20:50:21 C NIC Casper MD [facility] CPT-28970 Level 3 Est. Patient 11:49:34 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 OPERATOR Jessica boyd [facility] CPT-08566 Level 3 Est. Patient 14:55:50 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 OPERATOR Jose Zhong MD [facility] CPT-84777 Level 3 Est. Patient 10:21:41 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 OPERATOR Arie mcqueen MD [facility] CPT-18491 Level 3 Est. Patient 11:35:15 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 OPERATOR Arie mcqueen MD [facility] CPT-31421 Level 3 Est. Patient 15:40:28 CDT Brii Yepez [facility] CPT-49811 Level 3 Est. Patient 16:40:36 CDT Arie mcqueen MD [facility] CPT-24048 Level 4 Est. Patient 15:29:22 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 OPERATOR Arie mcqueen MD [facility] CPT-74270 Level 3 Est. Patient 15:18:16 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 OPERATOR Jono black DO [facility] CPT-02753 Level 4 Est. Patient 12:08:40 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 OPERATOR Brii Are ll [facility] CPT-49039 Level 3 Est. Patient 09:24:42 CDT Brii Are ll CHIEF ENGINEER PRODUCTION [facility] CPT-12065 Level 3 Est. Patient 09:12:56 CDT Arie mcqueen MD [facility] CPT-49643 Level 3 Est. Patient 16:40:54 CDT Jose Zhong MD [facility] CPT-16817 Level 2 Est. Patient 13:01:13 CDT Brii Are ll CHIEF ENGINEER PRODUCTION [facility] CPT-84496 Level 3 Est. Patient 11:55:30 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 OPERATOR Jono black DO [facility] CPT-44474 Level 3 Est. Patient 09:52:36 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 OPERATOR Brii Are ll [facility] CPT-74794 Level 3 Est. Patient 16:25:33 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 OPERATOR Rich Rosales MD [facility] CPT-10904 Level 3 Est. Patient 20:33:55 CDT Arie mcqueen MD [facility] CPT-83427 Level 3 Est. Patient 14:18:20 CDT Rich Rosales MD [facility] CPT-97968 Level 4 Est. Patient 09:34:31 CDT Arie mcqueen MD [facility] CPT-97745 Level 3 Est. Patient 09:08:55 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 OPERATOR Liliana vincent MD PhD [facility] CPT-37019 Level 3 Est. Patient 16:44:07 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 OPERATOR Arie mcqueen MD [facility] CPT-44841 Level 3 Est. Patient 10:44:27 CDT Arie mcqueen MD [facility] CPT-82001 Level 3 Est. Patient 08:55:41 CDT Jose Zhong MD [facility] CPT-09429 Level 3 Est. Patient 18:37:31 CDT Liliana vincent MD PhD [facility] CPT-56998 Level 3 Est. Patient 14:28:23 CDT Abelardo HERNANDEZ [facility] CPT-96269 Level 3 Est. Patient 15:18:13 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 OPERATOR Arie mcqueen MD [facility] CPT-84008 Level 3 Est. Patient 10:11:29 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 OPERATOR Arie mcqueen MD [facility] CPT-94496 Level 3 Est. Patient 10:55:57 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 OPERATOR Jono black DO [facility] CPT-97726 Level 3 Est. Patient 17:29:05 CDT Arie mcqueen MD [facility] Procedures Code Procedure Name Date Entry Date Standard Desc ription CPT-95104 Sono OB transvag XRAY USE ONLY 17:12:53 CS T CPT-69287 Sono OB transvag XRAY USE ONLY 17:11:12 CS T CPT-63256 UHCG Urine - MARC ONLY 12:13:59 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 OPERATOR 12/11 CPT-38453 Spec Collection and Handling Fee 12:13:[address] CPT-71048 Visit 12:13:59 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 OPERATOR CPT-02779 First Vx - Ix admin via ID I M or jet injects without counseling by physician 13:00:15 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 OPERATOR CPT-12757 Flulaval Intramuscular Injectable 13:00:15 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 OPERATOR CPT-60550 Urine Dip (Floor Use Only) 12:20:20 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 OPERATOR 201 06/03/24 CPT-37281 Sono Soft Tissue Head and Neck - XRAY US E ONLY 17:10:14 CDT CPT-51558 Ear Wash with irrigation 17:21:41 CDT 07/04 CPT-98132 Nexplanon Removal 15:40:28 CDT CPT-82519 Sono transvag pelvis non OB uterus ovari es cervix - XRAY USE ONLY 08:58:14 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 CPT-91526 UA w micro - LAB USE ONLY 16:04:56 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 OPERATOR 2015 CPT-88736 Wet Prep/GEN - LAB USE ONLY 16:04:56 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 OPERATOR 20 08/10/29 CPT-00676 First Vx - Ix admin via ID I M or jet injects without counseling by physician 16:57:10 CDT CPT-64620 Fluzone Preservative Free Intramuscular Suspension 16:57:10 CDT CPT-J0696 Rocephin 1000 mg (Ceftriaxone) 11:49:23 CDT CPT-J1040 Depo Medrol 80 mg (Methyl Prednisolone A cetate) 11:49:23 CDT CPT-J1100 Decadron 8mg (Dexamethasone) 11:49:23 CDT 2 CPT-28726 Abx/Therapy Injection 11:49:23 CDT CPT-77740 Abx/Therapy Injection 11:49:23 CDT CPT-43496 Abd compl w upright 09:07:26 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 OPERATOR CPT-80133 Ear Wash 16:12:47 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 OPERATOR CPT-OV Office Visit 11:12:01 CDT CPT-OV Office Visit 15:30:23 CDT CPT-59323 Sono pelvis non OB uterus ovaries cervix 15:50:44 CDT CPT-46845 Hand comp min 3V 16:42:32 CDT CPT-21372 Abd compl w upright 12:17:01 CDT CPT-21834 Nexplanon Placement 15:07:39 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 OPERATOR CPT-77947 Removal of IUD 15:07:39 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 OPERATOR CPT-50977 TB Tubersol 12:09:32 CDT CPT-51070 TB Tubersol 13:55:43 CDT
[2020-03-03] MEDS ORDERED: CITRIC ACID/SOB CIT (BICITRA) 30 ML UDC PO ONE (06:45)
[2020-03-03] MEDS ORDERED: FAMOTIDINE 20MG/2ML IV (PEPCID) IVP ONE (06:45)
[2020-03-03] MEDS ORDERED: METOCLOPRAMIDE INJ 10 MG/2 ML (REGLAN) IV ONE (06:45)
[2020-03-03] MEDS ORDERED: ceFAZolin 2 GM IV Premixed 50 ML IV ONE (06:45)
--- OUTSIDE RECORDS SUMMARY | 2020-03-03 06:45 | XMS REPORT | Clinical Summary ---
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 SPECIALIST DILAUDID Severe Active Brii MARROQUIN RN Conditions [...] quadrant Urinary frequency 788.41 Inactive Roseann Crawford [facility] Urinary frequency Urinary frequency 788.41 Resolved Jose [...] Influenza Vaccination for Prophylaxis V04.81 Inactive Brii Luchoboris EDUCATIONAL AUDIOLOGIST Need for prophylactic vaccin ation and inoculation [...] Zhong MD FH DIABETES ICD-V18.0 Inactive Jose hZong MD 201 01/29/08 ACUTE FRONTAL SINUSITIS ICD-461.1 [...] 3-4 times per day 12/11 PYRIDOXINE HCL 76873643472 Active Myrna Roberto MD Active UNISOM SLEEPTABS 25 MG ORAL TABLET one tab PO qhs DOXYLAMINE SUCCINATE (SLEEP) 02663566170 Active Myrna Roberto MD Active TYLENOL 325 MG ORAL CAPSULE PRN ACETAMINOPHEN 000 89548955 Active Brii Pacheco Active ESCITALOPRAM OXALATE 10 MG ORAL TABLET take 1 tab po qhs for mod ESCITALOPRAM OXALATE 45893892387 No Longer Active Brii Tara Active ALPRAZOLAM 0.25 MG ORAL TABLET 1 tablet by mouth twice a day as needed for stress/anxiety ALPRAZOLAM 80818726177 No Longer Active Brii Tara Active PROTONIX 40 MG ORAL TABLET DELAYED RELEASE 1 pill by m outh daily, for acid reflux PANTOPRAZOLE SODIUM 46154207740 No Longer Activ e Brii Tara Active DIFLUCAN 100 MG ORAL TABLET 1 tablet by mouth daily, R EPEAT 2ND DOSE IN 7 DAYS IF STILL SYMPTOMATIC FLUCONAZOLE 86080070476 No Long er Active Nilam Raida Active KEFLEX 500 MG ORAL CAPSULE 1 po tid CEPHALEXI N 97189090701 No Longer Active Tali Devi PA-C Active CONCEPT DHA 53.5-38-1 MG ORAL CAPSULE 1 tablet daily [id number]-OMEGA 3 16565312866 Active Oxana Souza LPN Active AMOXICILLIN 875 MG ORAL TABLET 1 tab by mouth twice daily 1 AMOXICILLIN 95032092091 No Longer Active Brii Russ APRN Active TUSSIONEX PENNKINETIC ER 10-8 MG/5ML ORAL SUSPENSION E XTENDED RELEASE 5ml po q12hr PRN Cough HYDROCOD POLST-CHLORPHEN POLST 5 5540973589 No Longer Active Myrna Roberto MD Active ZITHROMAX Z-EMIL 250 MG TABS Take two tablets today and then 1 tablet daily for 4 days AZITHROMYCIN 93964834089 No Longer Active Flaco Rosales MD Active GUAIFENESIN DM 400-20 MG ORAL TABLET 1 pill by mouth t wice daily, if needed for cough DEXTROMETHORPHAN-GUAIFENESIN 05456655643 No Longer Active Rich Rosales MD Active CEFDINIR 300 MG ORAL CAPSULE 1 po BID x 10 days CEFDINIR 89943462434 No Longer Active Jessica Heaton APRN Active CHERATUSSIN AC 100-10 MG/5ML ORAL SYRUP 1 tsp by mouth every 4 hours as needed for cough GUAIFENESIN-CODEINE 52692217090 No Longe r Active Jessica Heaton APRN Active TAMIFLU 75 MG ORAL CAPSULE 1 po BID x 5 days 0 OSELTAMIVIR PHOSPHATE 83250758699 No Longer Active Jose Zhong MD Activ e ZITHROMAX Z-EMIL 250 MG ORAL TABLET 2 today, then 1 daily for 4 d ays AZITHROMYCIN 33807518942 No Longer Active Arie Casper MD Active PROTONIX 40 MG ORAL TABLET DELAYED RELEASE 1 po q a.m. PANTOPRAZOLE SODIUM 22733626410 No Longer Active Arie Casper MD Active BACTRIM DS 800-160 MG ORAL TABLET 1 tab by mouth twice daily 201 05/02/30 TRIMETHOPRIM-SULFAMETHOXAZOLE 44700369131 No Longer Active R KELLIE Sandoval Active NEXPLANON IMPLANT right arm subcutaneously ETONOGESTREL IMPL 48921480469 No Longer Active Brii Russ APRN Active TUSSIONEX PENNKINETIC ER 10-8 MG/5ML ORAL SUSPENSION E XTENDED RELEASE 5ml po q12hr PRN Cough HYDROCOD POLST-CHLORPHEN POLST 5 3665082357 No Longer Active Brii Russ APRN Active CETIRIZINE HCL 10 MG ORAL TABLET 1 po qd PRN Allergies CETIRIZINE HCL 59876017112 No Longer Active Brii Russ APRN Activ e PREDNISONE 20 MG ORAL TABLET 2 tabs daily for 3 days, 1 tab daily for 3 days, 1/2 tab daily for 2 days PREDNISONE 42867676959 No Longer Active Arie Casper MD Active LOMOTIL 2.5-0.025 MG ORAL TABLET 1 tab po four times a day as needed for diarrhea DIPHENOXYLATE-ATROPINE 17732064126 No Lo nger Active Arie Casper MD Active ZOLOFT 50 MG ORAL TABLET 1 tablet by mouth daily 12/08 SERTRALINE HCL 55981003309 No Longer Active Arie Casper MD Ac tive NAPROXEN 500 MG ORAL TABLET Take 1 tab BID NAPR OXEN 72964213553 No Longer Active Arie Casper MD Active CEFDINIR 300 MG ORAL CAPSULE 1 po BID x 10 days CEFDINIR 46235071947 No Longer Active Brii Russ APRN Active PREDNISONE 20 MG ORAL TABLET 1 tablet daily for airway inflammat ion PREDNISONE 30225456034 No Longer Active Brii Russ APRN A ctive CEFDINIR 300 MG ORAL CAPSULE 1 po BID x 10 days CEFDINIR 77984732779 No Longer Active Jono Gagnon DO Active FLONASE 50 MCG/ACT NASAL SUSPENSION 1 spray each nostr il twice daily for allergies and runny nose until gone FLUT ICASONE PROPIONATE 87024382224 No Longer Active Jono Gagnon DO Active ALPRAZOLAM 0.25 MG ORAL TABLET 1 tablet by mouth every 8 hours as needed for stress ALPRAZOLAM 26048404661 No Longer Active Jono Gagnon DO Active ZITHROMAX Z-EMIL 250 MG ORAL TABLET 2 today, then 1 daily for 4 d ays AZITHROMYCIN 78892456378 No Longer Active Arie Casper MD Active PREDNISONE 20 MG ORAL TABLET 2 tabs daily for 3 days, 1 tab daily for 3 days, 1/2 tab daily for 2 days PREDNISONE 04309589196 No Longer Active Brii Russ APRN Active PREDNISONE 20 MG ORAL TABLET 1 tablet twice daily for 2 days, then 1 tablet once daily for 2 days PREDNISONE 17523757542 No Longer Active Brii Russ APRN Active PROMETHAZINE HCL 12.5 MG ORAL TABLET 1 tablet by mouth every 6 hours as needed for nausea/vomiting PROMETHAZINE HCL 80263588491 No L onger Active Jono Gagnon DO Active CITRATE OF MAGNESIA ORAL SOLUTION 1 bottle today for constipatio n MAGNESIUM CITRATE 39119861348 No Longer Active Jono Gagnon DO Active ZOFRAN 4 MG ORAL TABLET 1 TAB PO Q 6 HRS PRN NAUSEA 20 07/10/15 ONDANSETRON HCL 30128537195 No Longer Active Brii Russ APRN Acti ve LOMOTIL 2.5-0.025 MG ORAL TABLET 1 to 2 four times a day as needed for diarrhea DIPHENOXYLATE-ATROPINE 23353643326 No Longer Active January Russ APRN Active AMOXICILLIN 500 MG ORAL TABLET 2 tabs twice a day for 10 days 20 07/09/11 AMOXICILLIN 56578051678 No Longer Active Brii Russ APRN Active CYCLOBENZAPRINE HCL 10 MG ORAL TABLET 1/2 - 1 tablet b y mouth three times daily as needed for muscle spasm/pain CYCLOBENZAPRINE HCL 86820209219 No Longer Active Arie Casper MD Active LOMOTIL 2.5-0.025 MG ORAL TABLET 1 to 2 four times a day as needed for diarrhea DIPHENOXYLATE-ATROPINE 18011714547 No Longer Active Fozia Casper MD Active MACROBID 100 MG ORAL CAPSULE 1 cap by mouth twice daily NITROFURANTOIN MONOHYD MACRO 29878147943 No Longer Active Arie Casper MD Active ZYRTEC ALLERGY 10 MG ORAL CAPSULE 1 po qd CE TIRIZINE HCL 31540125258 No Longer Active Arie Casper MD Active AZITHROMYCIN 250 MG ORAL TABLET 2 po qd x 1 day, then 1 po q d x 4 days AZITHROMYCIN 60364134062 No Longer Active Jessica salgado EDUCATIONAL AUDIOLOGIST Active PREDNISONE 20 MG ORAL TABLET 2 tabs daily for 3 days, 1 tab daily for 3 days, 1/2 tab daily for 2 days PREDNISONE 45957925603 No Longer Active Jessica Heaton EDUCATIONAL AUDIOLOGIST Active PROMETHAZINE HCL 25 MG ORAL TABLET 1 four times a day as nee ded for vomiting PROMETHAZINE HCL 29098406937 No Longer Active Myrna Roberto MD Active BACTRIM DS 800-160 MG ORAL TABLET 1 twice a day 05/30 SULFAMETHOXAZOLE-TRIMETHOPRIM 47342827020 No Longer Active Myrna Roberto MD Active VICKS DAYQUIL SEVERE COLD/FLU TABLET 1 tab every 6 hours prn 201 02/22/17 [id number] TABS 05321170758 No Longer Active Chris Roberto MD Active GUAIFENESIN-CODEINE 100-10 MG/5ML ORAL SYRUP 2 tsp every 6 hours prn GUAIFENESIN-CODEINE 13420370361 No Longer Active Myrna Roberto MD Active NAPROXEN 500 MG ORAL TABLET one tab PO BID NAPR OXEN 28729397199 No Longer Active Myrna Roberto MD Active AUGMENTIN 875-125 MG ORAL TABLET 1 tab by mouth twice daily with food AMOXICILLIN-POT CLAVULANATE 76538501632 No Longer Act zaid Liliana Estrada MD PhD Active AMOXICILLIN 500 MG ORAL CAPSULE 1 tab by mouth 3 times daily 201 02/21/05 AMOXICILLIN 12104358308 No Longer Active Liliana Estrada MD PhD Active TESSALON PERLES 100 MG ORAL CAPSULE 1 tablet by mouth 3 times da cory BENZONATATE 24283841018 No Longer Active Liliana Estrada MD PhD Active FLAGYL 500 MG ORAL TABLET 1 tablet by mouth two times daily 2014 METRONIDAZOLE 82570946729 No Longer Active Nilam Doran tive ZITHROMAX 250 MG ORAL TABLET 2 po today, then 1 po q days 2-5 20 06/08/16 AZITHROMYCIN 00940054279 No Longer Active Arie Casper MD Active VITAMINS 0.8 MG ORAL TABLET take 1 tab po qday [id number] 69555663115 No Longer Active Arie Casper MD Active IBUPROFEN 800 MG ORAL TABLET take one po Q 8 hours 201 02/01/16 IBUPROFEN 55543836287 No Longer Active Arie Casper MD Acti ve [facility] TUSSIN COUGH/COLD CF 5-10-100 MG/5ML ORAL LIQUID 2 teasp oons every 4 hours [id number] 66159122364 No Longer Active Blaine Casper MD Active COMTREX COLD/COUGH DAY/NITE MS 5-2-10-325 MG ORAL 2 caps deja ry 4 hours [id number] 33805051508 No Longer Active Landon Casper MD Active CHLORASEPTIC MAX SORE THROAT 15-10 MG MOUTH/THROAT LOZENGE 1 every 2 hours prn BENZOCAINE-MENTHOL 74466488648 No Longer Active Arie Casper MD Active PREDNISONE 20 MG ORAL TABLET 2 tabs daily for 3 days, 1 tab daily for 3 days, 1/2 tab daily for 2 days PREDNISONE 53083688175 No Longer Active Jose Zhong MD Active AZITHROMYCIN 250 MG ORAL TABLET 2 po qd x 1 day, then 1 po q d x 4 days AZITHROMYCIN 22107611069 No Longer Active Jose Mcwilliams MD Active ZOFRAN ODT 4 MG ORAL TABLET DISINTEGRATING 1 po q6hr PRN Nausea ONDANSETRON 90213135768 No Longer Active Rich Rosales MD Active ZOFRAN 4 MG ORAL TABLET 1 tablet every 4 hours ONDANSETRON HCL 04062399409 No Longer Active Rich Rosales MD Activ e MUCINEX 600 MG ORAL TABLET EXTENDED RELEASE 12 HOUR Ta ke 1-2 tablets every 12 hours GUAIFENESIN 39711169567 No Longer Active Rich Rosales MD Active BACTRIM 400-80 MG ORAL TABLET take one po BID SULFAMETHOXAZOLE-TRIMETHOPRIM 33943557231 No Longer Active Abelardo HERNANDEZ Active AZITHROMYCIN 500 MG ORAL TABLET 1 PO q day x 6 days 20 03/02/23 AZITHROMYCIN 81788270659 No Longer Active Tin HERNANDEZ Activ e ZITHROMAX 250 MG ORAL TABLET 2 po today, then 1 po q days 2-5 20 10/03/08 AZITHROMYCIN 45657362196 No Longer Active Arie Casper MD Active ZITHROMAX 250 MG ORAL TABLET 2 po today, then 1 po q days 2-5 20 09/23/25 AZITHROMYCIN 78677974350 No Longer Active Arie Casper MD Active AMOXICILLIN 500 MG ORAL CAPSULE 1 tab by mouth 3 times daily 201 11/24/09 AMOXICILLIN 92333320608 No Longer Active Arie Casper MD Active BACTRIM DS 800-160 MG ORAL TABLET 1 tab by mouth twice daily 201 11/03/14 TRIMETHOPRIM-SULFAMETHOXAZOLE 39638666965 No Longer Active Fozia Casper MD Active AMOXICILLIN 500 MG ORAL TABLET take 1 tab po TID 08/05 AMOXICILLIN 87259843519 No Longer Active Arie Casper MD Acti [...] 4 hours ZOFRAN 4 MG ORAL TABLET 080674 ONDANSETRON HCL Inactive ZOFRAN ODT 4 MG [...] COLD/COUGH DAY/NITE MS 5-2-10-325 MG ORA L [id number] Inactive [facility] TUSSIN COUGH/COLD CF 5-10-100 MG/5ML ORAL LIQUID 2 teasp oons every 4 hours [facility] TUSSIN COUGH/COLD CF 5-10-100 MG/5ML ORAL LI QUID [id number] Inactive IBUPROFEN 800 MG ORAL TABLET take one po Q 8 hours 201 02/01/16 IBUPROFEN 800 MG ORAL TABLET IBUPROFEN Inactive VITAMINS 0.8 MG ORAL TABLET take 1 tab po qday VITAMINS 0.8 MG ORAL TABLET [id number] E-FA Inactive TESSALON PERLES 100 MG ORAL CAPSULE 1 tablet by mouth 3 times da cory TESSALON PERLES 100 MG ORAL CAPSULE 19730630 BENZONATATE Inactive AMOXICILLIN 500 MG ORAL CAPSULE 1 tab by mouth 3 times daily 201 02/21/05 AMOXICILLIN 500 MG ORAL CAPSULE 727682 AMOXICILLIN Inactive GUAIFENESIN-CODEINE 100-10 MG/5ML ORAL SYRUP 2 tsp every 6 hours prn GUAIFENESIN-CODEINE 100-10 MG/5ML ORAL SYRUP 127418 GUAIFENESIN-CODEINE Inactive VICKS DAYQUIL SEVERE COLD/FLU TABLET 1 tab every 6 hours prn 201 02/22/17 VICKS DAYQUIL SEVERE COLD/FLU TABLET PHENYLEPHRI [id number]-APAP TABS Inactive BACTRIM DS 800-160 MG ORAL TABLET 1 twice a day 05/30 BACTRIM DS 800-160 MG ORAL TABLET 163630 SULFAMETHOXAZOLE-TRIMETHOPRIM Inactiv e PROMETHAZINE HCL 25 MG ORAL TABLET 1 four times a day as nee ded for vomiting PROMETHAZINE HCL 25 MG ORAL TABLET 067729 PROMETHAZINE HCL Inactive ZYRTEC ALLERGY 10 MG ORAL CAPSULE 1 po qd ZYRTEC ALLERGY 10 MG ORAL CAPSULE CETIRIZINE HCL Inactive MACROBID 100 MG ORAL CAPSULE 1 cap by mouth twice daily MACROBID 100 MG ORAL CAPSULE 1806123 NITROFURANTOIN MONOHYD MACRO In active LOMOTIL 2.5-0.025 MG ORAL TABLET 1 to 2 four times a day as needed for diarrhea LOMOTIL 2.5-0.025 MG ORAL TABLET 2000910 DIPHENOXYLATE-ATROPINE Inactive CYCLOBENZAPRINE HCL 10 MG ORAL TABLET 1/2 - 1 tablet b y mouth three times daily as needed for muscle spasm/pain CYCLOBEN ZAPRINE HCL 10 MG ORAL TABLET 755047 CYCLOBENZAPRINE HCL Inactive AMOXICILLIN 500 MG ORAL TABLET 2 tabs twice a day for 10 days 20 07/09/11 AMOXICILLIN 500 MG ORAL TABLET 872318 AMOXICILLIN I nactive LOMOTIL 2.5-0.025 MG ORAL TABLET 1 to 2 four times a day as needed for diarrhea LOMOTIL 2.5-0.025 MG ORAL TABLET 8691703 DIPHENOXYLATE-ATROPINE Inactive ZOFRAN 4 MG ORAL TABLET 1 TAB PO Q 6 HRS PRN NAUSEA 20 07/10/15 ZOFRAN 4 MG ORAL TABLET 053761 ONDANSETRON HCL Inactive CITRATE OF MAGNESIA ORAL SOLUTION 1 bottle today for constipatio n CITRATE OF MAGNESIA ORAL SOLUTION 0398805 MAGNESIUM CITR ATE Inactive PROMETHAZINE HCL 12.5 MG ORAL TABLET 1 tablet by mouth every 6 hours as needed for nausea/vomiting PROMETHAZINE HCL 12.5 MG ORA L TABLET 012800 PROMETHAZINE HCL Inactive PREDNISONE 20 MG ORAL TABLET 1 tablet twice daily for 2 days, then 1 tablet once daily for 2 days PREDNISONE 20 MG ORAL TABLET 855440 PREDNISONE Inactive ALPRAZOLAM 0.25 MG ORAL TABLET 1 tablet by mouth every 8 hours as needed for stress ALPRAZOLAM 0.25 MG ORAL TABLET 421714 ALPRA ZOLAM Inactive FLONASE 50 MCG/ACT NASAL SUSPENSION 1 spray each nostr il twice daily for allergies and runny nose until gone FLON ASE 50 MCG/ACT NASAL SUSPENSION FLUTICASONE PROPIONATE Inactive PREDNISONE 20 MG ORAL TABLET 1 tablet daily for airway inflammat ion PREDNISONE 20 MG ORAL TABLET 045537 PREDNISONE [place] ctive NAPROXEN 500 MG ORAL TABLET Take 1 tab BID NAPROXEN 500 MG ORAL TABLET 168737 NAPROXEN Inactive ZOLOFT 50 MG ORAL TABLET 1 tablet by mouth daily 12/08 ZOLOFT 50 MG ORAL TABLET 409867 SERTRALINE HCL Inactive LOMOTIL 2.5-0.025 MG ORAL TABLET 1 tab po four times a day as needed for diarrhea LOMOTIL 2.5-0.025 MG ORAL TABLET 9074346 DIPHENOXYLATE-ATROPINE Inactive CETIRIZINE HCL 10 MG ORAL TABLET 1 po qd PRN Allergies CETIRIZINE HCL 10 MG ORAL TABLET 7908365 CETIRIZINE HCL Inactiv e TUSSIONEX PENNKINETIC ER 10-8 MG/5ML ORAL SUSPENSION E XTENDED RELEASE 5ml po q12hr PRN Cough TUSSIONEX PENNKINETI C ER 10-8 MG/5ML ORAL SUSPENSION EXTENDED RELEASE HYDROCOD POLST-CHLORPHEN POLST I nactive NEXPLANON IMPLANT right arm subcutaneously NEXPLANON IMPLANT ETONOGESTREL IMPL Inactive PROTONIX 40 MG ORAL TABLET DELAYED RELEASE 1 po q a.m. PROTONIX 40 MG ORAL TABLET DELAYED RELEASE 487517 PANTOPRAZOLE SODI UM Inactive CHERATUSSIN AC 100-10 MG/5ML ORAL SYRUP 1 tsp by mouth every 4 hours as needed for cough CHERATUSSIN AC 100-10 MG/5ML ORAL SYRUP 9 27863 GUAIFENESIN-CODEINE Inactive GUAIFENESIN DM 400-20 MG ORAL [...] tid K EFLEX 500 MG ORAL CAPSULE 020448 CEPHALEXIN Inactive DIFLUCAN 100 MG ORAL TABLET 1 tablet by mouth daily, R EPEAT 2ND DOSE IN 7 DAYS IF STILL SYMPTOMATIC DIFLUCAN 100 MG ORAL TABLET 21670 8 FLUCONAZOLE Inactive PROTONIX 40 MG ORAL TABLET DELAYED RELEASE 1 pill by m outh daily, for acid reflux PROTONIX 40 MG ORAL TABLET DELAYED RELEAS E 882300 PANTOPRAZOLE SODIUM Inactive ALPRAZOLAM 0.25 MG ORAL TABLET 1 tablet by mouth twice a day as needed for stress/anxiety ALPRAZOLAM 0.25 MG ORAL TABLET 400243 ALPRAZOLAM Inactive ESCITALOPRAM OXALATE 10 MG ORAL TABLET take 1 tab po qhs for mod ESCITALOPRAM OXALATE 10 MG ORAL TABLET 600282 ESCITALOP JO OXALATE Inactive AMOXICILLIN 500 MG ORAL TABLET take 1 tab po TID 08/05 AMOXICILLIN 500 MG ORAL TABLET 472169 AMOXICILLIN Inactive AMOXICILLIN 500 MG ORAL CAPSULE 1 tab by mouth 3 times daily 201 11/24/09 AMOXICILLIN 500 MG ORAL CAPSULE 507181 AMOXICILLIN Inactive ZITHROMAX 250 MG ORAL TABLET 2 po today, then 1 po q days 2-5 20 09/23/25 ZITHROMAX 250 MG ORAL TABLET 303439 AZITHROMYCIN [place] ctive ZITHROMAX 250 MG ORAL TABLET 2 po today, then 1 po q days 2-5 20 10/03/08 ZITHROMAX 250 MG ORAL TABLET 622822 AZITHROMYCIN [place] ctive AZITHROMYCIN 500 MG ORAL TABLET 1 PO q day x 6 days 20 03/02/23 AZITHROMYCIN 500 MG ORAL TABLET 7820362 AZITHROMYCIN Inactive BACTRIM 400-80 MG ORAL TABLET take one po BID BACTRIM 400- 80 MG ORAL TABLET 581147 SULFAMETHOXAZOLE-TRIMETHOPRIM Inactive AZITHROMYCIN 250 MG ORAL TABLET 2 po qd x 1 day, then 1 po q d x 4 days AZITHROMYCIN 250 MG ORAL TABLET 681157 AZITHROMY ALLISON Inactive PREDNISONE 20 MG ORAL TABLET 2 tabs daily for 3 days, 1 tab daily for 3 days, 1/2 tab daily for 2 days PREDNISONE 20 MG ORAL T ABLET 493941 PREDNISONE Inactive ZITHROMAX 250 MG ORAL TABLET 2 po today, then 1 po q days 2-5 20 06/08/16 ZITHROMAX 250 MG ORAL TABLET 280939 AZITHROMYCIN [place] ctive FLAGYL 500 MG ORAL TABLET 1 tablet by mouth two times daily 2014 FLAGYL 500 MG ORAL TABLET 868542 METRONIDAZOLE Inacti ve AUGMENTIN 875-125 MG ORAL TABLET 1 tab by mouth twice daily with food AUGMENTIN 875-125 MG ORAL TABLET 696407 AMOXICIL ELSA-POT CLAVULANATE Inactive NAPROXEN 500 MG ORAL TABLET one tab PO BID NAPROXEN 500 MG ORAL TABLET 256965 NAPROXEN Inactive PREDNISONE 20 MG ORAL TABLET 2 tabs daily for 3 days, 1 tab daily for 3 days, 1/2 tab daily for 2 days PREDNISONE 20 MG ORAL T ABLET 162900 PREDNISONE Inactive AZITHROMYCIN 250 MG ORAL TABLET 2 po qd x 1 day, then 1 po q d x 4 days AZITHROMYCIN 250 MG ORAL TABLET 299195 AZITHROMY ALLISON Inactive PREDNISONE 20 MG ORAL TABLET 2 tabs daily for 3 days, 1 tab daily for 3 days, 1/2 tab daily for 2 days PREDNISONE 20 MG ORAL T ABLET 839048 PREDNISONE Inactive ZITHROMAX Z-EMIL 250 MG ORAL TABLET 2 today, then 1 daily for 4 d ays ZITHROMAX Z-EMIL 250 MG ORAL TABLET 584936 AZITHROMYCIN Inactive CEFDINIR 300 MG ORAL CAPSULE 1 po BID x 10 days 12/18 CEFDINIR 300 MG ORAL CAPSULE 716734 CEFDINIR Inactive CEFDINIR 300 MG ORAL CAPSULE 1 po BID x 10 days CEFDINIR 300 MG ORAL CAPSULE 481191 CEFDINIR Inactive PREDNISONE 20 MG ORAL TABLET 2 tabs daily for 3 days, 1 tab daily for 3 days, 1/2 tab daily for 2 days PREDNISONE 20 MG ORAL T ABLET 550051 PREDNISONE Inactive BACTRIM DS 800-160 MG ORAL TABLET 1 tab by mouth twice daily 201 05/02/30 BACTRIM DS 800-160 MG ORAL TABLET 091139 TRIMETHOPRIM-SULFAMETHOXAZOLE Inactive ZITHROMAX Z-EMIL 250 MG ORAL TABLET 2 today, then 1 daily for 4 d ays ZITHROMAX Z-EMIL 250 MG ORAL TABLET 431648 AZITHROMYCIN Inactive TAMIFLU 75 MG ORAL CAPSULE 1 po BID x 5 days 0 TAMIFLU 75 MG ORAL CAPSULE 195954 OSELTAMIVIR PHOSPHATE Inactive CEFDINIR 300 MG ORAL CAPSULE 1 po BID x 10 days 01/03 CEFDINIR 300 MG ORAL CAPSULE 076404 CEFDINIR Inactive ZITHROMAX Z-EMIL 250 MG TABS Take two tablets today and then 1 tablet daily for 4 days ZITHROMAX Z-EMIL 250 MG TABS 071819 AZITHROM YCIN Inactive AMOXICILLIN 875 MG ORAL TABLET 1 tab by mouth twice daily 1 AMOXICILLIN 875 MG ORAL TABLET 128591 AMOXICILLIN Inactive Advance Directives Directive Description Start [...] 11 .0-15.0 platelet count 280 THOUSAND/UL 10*3/mm3 624-879 8631/02/18 mean platelet volume 11.6 fL 7.5-12.5 Lab [...] 11 .6-14.8 platelet count 245 10^3/MM^3 10*3/mm3 528-401 3969/09/27 leukocyte count, blood 7.6 10^3/MM^3 10*3/mm3 4.6-10.2 [...] count 297 10^3/MM^3 10*3/mm3 142-424 Lab Report: [facility]/Adult/470, PROLACTIN - C hemistry [...] mg/dL Encounters Code Encounter Date Provider Facility CPT-32072 Level 4 Est. Patient 16:18:17 QUALITY ASSURANCE TECH Myrna maldonado MD [facility] CPT-11246 Level 4 Est. Patient 16:39:44 QUALITY ASSURANCE TECH Jose Zhong MD [facility]-09951 [id number] Vst-Est Level IV 13:45:38 C Tali Devi PA-C [facility] CPT-09641 [id number] Vst-Est Level III 09:41:31 CDT Arie Casper MD [facility] CPT-96058 [id number] Vst-Est Level III 18:20:11 CDT [facility] [id number] Vst-Est Level III 17:21:41 CDT [facility] CPT-83234 [id number] Vst-Est Level IV 13:30:22 C DT Arie Casper MD [facility] CPT-17063 Level 4 Est. Patient 13:05:26 CDT Myrna maldonado MD [facility]-90833 [id number] Vst-Est Level IV 20:50:21 C DT Arie Casper MD [facility] CPT-36478 Level 3 Est. Patient 11:49:34 QUALITY ASSURANCE TECH Jessica boyd [facility] CPT-75417 Level 3 Est. Patient 14:55:50 QUALITY ASSURANCE TECH Jose Zhong MD [facility] CPT-26400 Level 3 Est. Patient 10:21:41 QUALITY ASSURANCE TECH Arie mcqueen MD [facility] CPT-25511 Level 3 Est. Patient 11:35:15 QUALITY ASSURANCE TECH Arie mcqueen MD [facility] CPT-47322 Level 3 Est. Patient 15:40:28 CDT Brii Are [facility] CPT-27855 Level 3 Est. Patient 16:40:36 CDT Arie mcqueen MD [facility] CPT-31052 Level 4 Est. Patient 15:29:22 QUALITY ASSURANCE TECH Arie mcqueen MD [facility] CPT-63089 Level 3 Est. Patient 15:18:16 QUALITY ASSURANCE TECH Jono black [facility] CPT-23677 Level 4 Est. Patient 12:08:40 QUALITY ASSURANCE TECH Brii Are ll [facility] CPT-37268 Level 3 Est. Patient 09:24:42 CDT Brii Are [facility] CPT-78062 Level 3 Est. Patient 09:12:56 CDT Arie mcqueen MD [facility] CPT-95156 Level 3 Est. Patient 16:40:54 CDT Jose Zhong MD [facility] CPT-56173 Level 2 Est. Patient 13:01:13 CDT Brii Are [facility] CPT-16901 Level 3 Est. Patient 11:55:30 QUALITY ASSURANCE TECH Jono black [facility] CPT-11942 Level 3 Est. Patient 09:52:36 QUALITY ASSURANCE TECH Brii Are ll [facility] CPT-78844 Level 3 Est. Patient 16:25:33 QUALITY ASSURANCE TECH Rich Rosales MD [facility] CPT-38783 Level 3 Est. Patient 20:33:55 CDT Arie mcqueen MD [facility] CPT-32220 Level 3 Est. Patient 14:18:20 CDT Rich Rosales MD [facility] CPT-51375 Level 4 Est. Patient 09:34:31 CDT Arie mcqueen MD [facility] CPT-07228 Level 3 Est. Patient 09:08:55 QUALITY ASSURANCE TECH Liliana vincent MD PhD [facility] CPT-91548 Level 3 Est. Patient 16:44:07 QUALITY ASSURANCE TECH Arie mcqueen MD [facility] CPT-28376 Level 3 Est. Patient 10:44:27 CDT Arie mcqueen MD [facility] CPT-07190 Level 3 Est. Patient 08:55:41 CDT Jose Zhong MD [facility] CPT-65538 Level 3 Est. Patient 18:37:31 CDT Liliana vincent MD PhD [facility] CPT-39880 Level 3 Est. Patient 14:28:23 CDT Abelardo HERNANDEZ [facility] CPT-84327 Level 3 Est. Patient 15:18:13 QUALITY ASSURANCE TECH Arie mcqueen MD [facility] CPT-14167 Level 3 Est. Patient 10:11:29 QUALITY ASSURANCE TECH Arie mcqueen MD [facility] CPT-47725 Level 3 Est. Patient 10:55:57 QUALITY ASSURANCE TECH Jono black DO [facility] CPT-58891 Level 3 Est. Patient 17:29:05 CDT Arie mcqueen MD [facility] Procedures Code Procedure Name Date Entry Date Standard Desc ription CPT-79137 Sono OB transvag XRAY USE ONLY 17:12:53 CS T CPT-77839 Sono OB transvag XRAY USE ONLY 17:11:12 CS T CPT-77584 UHCG Urine - MARC ONLY 12:13:59 QUALITY ASSURANCE TECH 12/11 CPT-46208 Spec Collection and Handling Fee 12:13:[address] CPT-12859 Visit 12:13:59 QUALITY ASSURANCE TECH CPT-25023 First Vx - Ix admin via ID I M or jet injects without counseling by physician 13:00:15 QUALITY ASSURANCE TECH CPT-90868 Flulaval Intramuscular Injectable 13:00:15 QUALITY ASSURANCE TECH CPT-72926 Urine Dip (Floor Use Only) 12:20:20 QUALITY ASSURANCE TECH 201 06/03/24 CPT-15963 Sono Soft Tissue Head and Neck - XRAY US E ONLY 17:10:14 CDT CPT-79022 Ear Wash with irrigation 17:21:41 CDT 07/04 CPT-57886 Nexplanon Removal 15:40:28 CDT CPT-05917 Sono transvag pelvis non OB uterus ovari es cervix - XRAY USE ONLY 08:58:14 QUALITY ASSURANCE TECH CPT-25447 UA w micro - LAB USE ONLY 16:04:56 QUALITY ASSURANCE TECH 2015 CPT-96020 Wet Prep/GEN - LAB USE ONLY 16:04:56 QUALITY ASSURANCE TECH 20 08/10/29 CPT-54248 First Vx - Ix admin via ID I M or jet injects without counseling by physician 16:57:10 CDT CPT-73460 Fluzone Preservative Free Intramuscular Suspension 16:57:10 CDT CPT-J0696 Rocephin 1000 mg (Ceftriaxone) 11:49:23 CDT CPT-J1040 Depo Medrol 80 mg (Methyl Prednisolone A cetate) 11:49:23 CDT CPT-J1100 Decadron 8mg (Dexamethasone) 11:49:23 CDT 2 CPT-04314 Abx/Therapy Injection 11:49:23 CDT CPT-44393 Abx/Therapy Injection 11:49:23 CDT CPT-54123 Abd compl w upright 09:07:26 QUALITY ASSURANCE TECH CPT-05319 Ear Wash 16:12:47 QUALITY ASSURANCE TECH CPT-OV Office Visit 11:12:01 CDT CPT-OV Office Visit 15:30:23 CDT CPT-77259 Sono pelvis non OB uterus ovaries cervix 15:50:44 CDT CPT-89844 Hand comp min 3V 16:42:32 CDT CPT-65645 Abd compl w upright 12:17:01 CDT CPT-73674 Nexplanon Placement 15:07:39 QUALITY ASSURANCE TECH CPT-31532 Removal of IUD 15:07:39 QUALITY ASSURANCE TECH CPT-12871 TB Tubersol 12:09:32 CDT CPT-59872 TB Tubersol 13:55:43 CDT
--- OUTSIDE RECORDS SUMMARY | 2020-03-03 06:46 | XMS REPORT | Clinical Summary ---
Author Author Dena, Diamante Marcelo Organization [employer] Address Unknown Phone Unavailable Allergies, Adverse Reactions, Alerts Allergy Name Reaction Description Start Date Severity Status Pr ovider PERCOCET Itchy Rash Severe Active Oxana Mina cheema JUNIOR BUYER DILAUDID Severe Active Brii MARROQUIN RN Conditions [...] Inactive Roseann Crawford [facility] Urinary frequency Urinary frequency 788.41 Resolved Jose [...] Mass Index 28.0-28.9 Adult Inactive 2017 Arie Caspre MD Body Mass Index 28.0-28.9, adult BMI [...] Vaccination for Prophylaxis V04.81 Inactive Brii Petrona 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 PLANT OPERATOR Need for prophylactic vaccin ation and [...] Roberto MD Supervision of unspecified high -risk FH BREAST CANCER ICD-V16.3 Inactive Jose Marcelo [...] Jose Zhong MD Tonsillar enlargement ICD-474.11 Inactive Gabreilla Zhong MD Influenza Vaccination for Prophylaxis ICD-V04.81 [...] 3-4 times per day 12/11 PYRIDOXINE HCL 09490482119 Active Myrna Roberto MD Active UNISOM SLEEPTABS 25 MG ORAL TABLET one tab PO qhs DOXYLAMINE SUCCINATE (SLEEP) 63114384961 Active Myrna Roberto MD Active TYLENOL 325 MG ORAL CAPSULE PRN ACETAMINOPHEN 000 33822810 Active Brii Pacheco Active ESCITALOPRAM OXALATE 10 MG ORAL TABLET take 1 tab po qhs for mod ESCITALOPRAM OXALATE 02778056302 No Longer Active Brii Pacheco Active ALPRAZOLAM 0.25 MG ORAL TABLET 1 tablet by mouth twice a day as needed for stress/anxiety ALPRAZOLAM 29991175584 No Longer Active rBii Pacheco Active PROTONIX 40 MG ORAL TABLET DELAYED RELEASE 1 pill by m outh daily, for acid reflux PANTOPRAZOLE SODIUM 30312336079 No Longer Activ e Brii Pacheco Active DIFLUCAN 100 MG ORAL TABLET 1 tablet by mouth daily, R EPEAT 2ND DOSE IN 7 DAYS IF STILL SYMPTOMATIC FLUCONAZOLE 29512805133 No Long er Active Nilam Raida Active KEFLEX 500 MG ORAL CAPSULE 1 po tid CEPHALEXI N 77338223841 No Longer Active Tali Devi PA-C Active CONCEPT DHA 53.5-38-1 MG ORAL CAPSULE 1 tablet daily [id number]-[id number] 3 57340016743 Active Oxana Souza JUNIOR BUYER Active AMOXICILLIN 875 MG ORAL TABLET 1 tab by mouth twice daily 1 AMOXICILLIN 43073072732 No Longer Active Briiarnaldo Russ APRN Active TUSSIONEX PENNKINETIC ER 10-8 MG/5ML ORAL SUSPENSION E XTENDED RELEASE 5ml po q12hr PRN Cough HYDROCOD POLST-CHLORPHEN POLST 5 3347869337 No Longer Active Myrna Roberto MD Active ZITHROMAX Z-EMIL 250 MG TABS Take two tablets today and then 1 tablet daily for 4 days AZITHROMYCIN 65544684020 No Longer Active Flaco Rosales MD Active GUAIFENESIN DM 400-20 MG ORAL TABLET 1 pill by mouth t wice daily, if needed for cough DEXTROMETHORPHAN-GUAIFENESIN 88488649485 No Longer Active Rich Rosales MD Active CEFDINIR 300 MG ORAL CAPSULE 1 po BID x 10 days CEFDINIR 60116772077 No Longer Active Jessica Heaton APRN Active CHERATUSSIN AC 100-10 MG/5ML ORAL SYRUP 1 tsp by mouth every 4 hours as needed for cough GUAIFENESIN-CODEINE 03855661599 No Longe r Active Xochiltina Florina CARBERA Active TAMIFLU 75 MG ORAL CAPSULE 1 po BID x 5 days 0 OSELTAMIVIR PHOSPHATE 66197440625 No Longer Active Jose Zhong MD Activ e ZITHROMAX Z-EMIL 250 MG ORAL TABLET 2 today, then 1 daily for 4 d ays AZITHROMYCIN 27635612307 No Longer Active Arie Casper MD Active PROTONIX 40 MG ORAL TABLET DELAYED RELEASE 1 po q a.m. PANTOPRAZOLE SODIUM 26774825667 No Longer Active Arie Casper MD Active BACTRIM DS 800-160 MG ORAL TABLET 1 tab by mouth twice daily 201 05/02/30 TRIMETHOPRIM-SULFAMETHOXAZOLE 86061774053 No Longer Active R KELLIE Sandoval Active NEXPLANON IMPLANT right arm subcutaneously ETONOGESTREL IMPL 63728544451 No Longer Active Brii Russ APRN Active TUSSIONEX PENNKINETIC ER 10-8 MG/5ML ORAL SUSPENSION E XTENDED RELEASE 5ml po q12hr PRN Cough HYDROCOD POLST-CHLORPHEN POLST 5 7906235088 No Longer Active Brii Russ APRN Active CETIRIZINE HCL 10 MG ORAL TABLET 1 po qd PRN Allergies CETIRIZINE HCL 21973621789 No Longer Active Brii Russ APRN Activ e PREDNISONE 20 MG ORAL TABLET 2 tabs daily for 3 days, 1 tab daily for 3 days, 1/2 tab daily for 2 days PREDNISONE 01296778404 No Longer Active Arie Casper MD Active LOMOTIL 2.5-0.025 MG ORAL TABLET 1 tab po four times a day as needed for diarrhea DIPHENOXYLATE-ATROPINE 96845694760 No Lo nger Active Arie Casper MD Active ZOLOFT 50 MG ORAL TABLET 1 tablet by mouth daily 12/08 SERTRALINE HCL 24292454236 No Longer Active Arie Casper MD Ac tive NAPROXEN 500 MG ORAL TABLET Take 1 tab BID NAPR OXEN 46276632936 No Longer Active Arie Casper MD Active CEFDINIR 300 MG ORAL CAPSULE 1 po BID x 10 days CEFDINIR 25786829554 No Longer Active Brii Russ APRN Active PREDNISONE 20 MG ORAL TABLET 1 tablet daily for airway inflammat ion PREDNISONE 15213009235 No Longer Active Brii Russ APRN A ctive CEFDINIR 300 MG ORAL CAPSULE 1 po BID x 10 days CEFDINIR 05226422291 No Longer Active Jono Gagnon DO Active FLONASE 50 MCG/ACT NASAL SUSPENSION 1 spray each nostr il twice daily for allergies and runny nose until gone FLUT ICASONE PROPIONATE 19341753689 No Longer Active Jono Gagnon DO Active ALPRAZOLAM 0.25 MG ORAL TABLET 1 tablet by mouth every 8 hours as needed for stress ALPRAZOLAM 11016775716 No Longer Active Jono Gagnon DO Active ZITHROMAX Z-EMIL 250 MG ORAL TABLET 2 today, then 1 daily for 4 d ays AZITHROMYCIN 65645910961 No Longer Active Arie Casper MD Active PREDNISONE 20 MG ORAL TABLET 2 tabs daily for 3 days, 1 tab daily for 3 days, 1/2 tab daily for 2 days PREDNISONE 79229335822 No Longer Active Brii Russ APRN Active PREDNISONE 20 MG ORAL TABLET 1 tablet twice daily for 2 days, then 1 tablet once daily for 2 days PREDNISONE 97473461371 No Longer Active Brii Russ APRN Active PROMETHAZINE HCL 12.5 MG ORAL TABLET 1 tablet by mouth every 6 hours as needed for nausea/vomiting PROMETHAZINE HCL 81788464494 No L onger Active Jono Gagnon DO Active CITRATE OF MAGNESIA ORAL SOLUTION 1 bottle today for constipatio n MAGNESIUM CITRATE 89185240079 No Longer Active Jono Gagnon DO Active ZOFRAN 4 MG ORAL TABLET 1 TAB PO Q 6 HRS PRN NAUSEA 07/10/15 ONDANSETRON HCL 72444778402 No Longer Active Brii Russ APRN Acti ve LOMOTIL 2.5-0.025 MG ORAL TABLET 1 to 2 four times a day as needed for diarrhea DIPHENOXYLATE-ATROPINE 40087366706 No Longer Active January Russ APRN Active AMOXICILLIN 500 MG ORAL TABLET 2 tabs twice a day for 10 days 20 07/09/11 AMOXICILLIN 12945351504 No Longer Active Brii Russ APRN Active CYCLOBENZAPRINE HCL 10 MG ORAL TABLET 1/2 - 1 tablet b y mouth three times daily as needed for muscle spasm/pain CYCLOBENZAPRINE HCL 98976449515 No Longer Active Arie Casper MD Active LOMOTIL 2.5-0.025 MG ORAL TABLET 1 to 2 four times a day as needed for diarrhea DIPHENOXYLATE-ATROPINE 12337512483 No Longer Active D freddy Casper MD Active MACROBID 100 MG ORAL CAPSULE 1 cap by mouth twice daily NITROFURANTOIN MONOHYD MACRO 03593939410 No Longer Active Arie Casper MD Active ZYRTEC ALLERGY 10 MG ORAL CAPSULE 1 po qd CE TIRIZINE HCL 26033820162 No Longer Active Arie Casper MD Active AZITHROMYCIN 250 MG ORAL TABLET 2 po qd x 1 day, then 1 po q d x 4 days AZITHROMYCIN 89285167827 No Longer Active Jillina Marcell naomi NUCLEAR PLANT OPERATOR Active PREDNISONE 20 MG ORAL TABLET 2 tabs daily for 3 days, 1 tab daily for 3 days, 1/2 tab daily for 2 days PREDNISONE 86387426977 No Longer Active Waynellarlen Heaton NUCLEAR PLANT OPERATOR Active PROMETHAZINE HCL 25 MG ORAL TABLET 1 four times a day as nee ded for vomiting PROMETHAZINE HCL 65015089334 No Longer Active Myrna Roberto MD Active BACTRIM DS 800-160 MG ORAL TABLET 1 twice a day 05/30 SULFAMETHOXAZOLE-TRIMETHOPRIM 21621326549 No Longer Active Myrna Roberto MD Active VICKS DAYQUIL SEVERE COLD/FLU TABLET 1 tab every 6 hours prn 201 02/22/17 [id number]-APAP TABS 50048550584 No Longer Active K fany Roberto MD Active GUAIFENESIN-CODEINE 100-10 MG/5ML ORAL SYRUP 2 tsp every 6 hours prn GUAIFENESIN-CODEINE 44210272622 No Longer Active Myrna Roberto MD Active NAPROXEN 500 MG ORAL TABLET one tab PO BID NAPR OXEN 34253640940 No Longer Active Myrna Roberto MD Active AUGMENTIN 875-125 MG ORAL TABLET 1 tab by mouth twice daily with food AMOXICILLIN-POT CLAVULANATE 25405490450 No Longer Act zaid Liliana Estrada MD PhD Active AMOXICILLIN 500 MG ORAL CAPSULE 1 tab by mouth 3 times daily 201 02/21/05 AMOXICILLIN 23982999905 No Longer Active Liliana Estrada MD PhD Active TESSALON PERLES 100 MG ORAL CAPSULE 1 tablet by mouth 3 times da cory BENZONATATE 53596323645 No Longer Active Liliana Estrada MD PhD Active FLAGYL 500 MG ORAL TABLET 1 tablet by mouth two times daily 2014 METRONIDAZOLE 54155998478 No Longer Active Nilam Plattkatie Ac tive ZITHROMAX 250 MG ORAL TABLET 2 po today, then 1 po q days 2-5 20 06/08/16 AZITHROMYCIN 85953467284 No Longer Active Arie Casper MD Active VITAMINS 0.8 MG ORAL TABLET take 1 tab po qday [id number] 99848260688 No Longer Active Arie Casper MD Active IBUPROFEN 800 MG ORAL TABLET take one po Q 8 hours 201 02/01/16 IBUPROFEN 52862448689 No Longer Active Arie Casper MD Acti ve [facility] TUSSIN COUGH/COLD CF 5-10-100 MG/5ML ORAL LIQUID 2 teasp oons every 4 hours [id number] 29390523796 No Longer Active Blaine Casper MD Active COMTREX COLD/COUGH DAY/NITE MS 5-2-10-325 MG ORAL 2 caps deja ry 4 hours [id number]-APAP 02443068470 No Longer Active Da aleksandra Casper MD Active CHLORASEPTIC MAX SORE THROAT 15-10 MG MOUTH/THROAT LOZENGE 1 every 2 hours prn BENZOCAINE-MENTHOL 88361796241 No Longer Active Arie Casper MD Active PREDNISONE 20 MG ORAL TABLET 2 tabs daily for 3 days, 1 tab daily for 3 days, 1/2 tab daily for 2 days PREDNISONE 23811590801 No Longer Active Jose Zhong MD Active AZITHROMYCIN 250 MG ORAL TABLET 2 po qd x 1 day, then 1 po q d x 4 days AZITHROMYCIN 40503339099 No Longer Active Jose Mcwilliams MD Active ZOFRAN ODT 4 MG ORAL TABLET DISINTEGRATING 1 po q6hr PRN Nausea ONDANSETRON 16125452486 No Longer Active Rich Rosales MD Active ZOFRAN 4 MG ORAL TABLET 1 tablet every 4 hours ONDANSETRON HCL 85816605573 No Longer Active Rich Rosales MD Activ e MUCINEX 600 MG ORAL TABLET EXTENDED RELEASE 12 HOUR Ta ke 1-2 tablets every 12 hours GUAIFENESIN 58561401457 No Longer Active Rich Rosales MD Active BACTRIM 400-80 MG ORAL TABLET take one po BID SULFAMETHOXAZOLE-TRIMETHOPRIM 62863075851 No Longer Active Abelardo HERNANDEZ Active AZITHROMYCIN 500 MG ORAL TABLET 1 PO q day x 6 days 20 03/02/23 AZITHROMYCIN 75927356764 No Longer Active Tin HERNANDEZ Activ e ZITHROMAX 250 MG ORAL TABLET 2 po today, then 1 po q days 2-5 20 10/03/08 AZITHROMYCIN 68377596201 No Longer Active Arie Casper MD Active ZITHROMAX 250 MG ORAL TABLET 2 po today, then 1 po q days 2-5 20 09/23/25 AZITHROMYCIN 01489509326 No Longer Active Arie Casper MD Active AMOXICILLIN 500 MG ORAL CAPSULE 1 tab by mouth 3 times daily 201 11/24/09 AMOXICILLIN 17933028620 No Longer Active Arie Casper MD Active BACTRIM DS 800-160 MG ORAL TABLET 1 tab by mouth twice daily 201 11/03/14 TRIMETHOPRIM-SULFAMETHOXAZOLE 13932847158 No Longer Active Fozia Casper MD Active AMOXICILLIN 500 MG ORAL TABLET take 1 tab po TID 08/05 AMOXICILLIN 06767987340 No Longer Active Arie Casper MD Acti [...] 4 hours ZOFRAN 4 MG ORAL TABLET 667027 ONDANSETRON HCL Inactive ZOFRAN ODT 4 MG [...] COLD/COUGH DAY/NITE MS 5-2-10-325 MG ORA L [id number] Inactive [facility] TUSSIN COUGH/COLD CF 5-10-100 MG/5ML ORAL LIQUID 2 teasp oons every 4 hours [facility] TUSSIN COUGH/COLD CF 5-10-100 MG/5ML ORAL LI QUID [id number] Inactive IBUPROFEN 800 MG ORAL TABLET take one po Q 8 hours 201 02/01/16 IBUPROFEN 800 MG ORAL TABLET IBUPROFEN Inactive VITAMINS 0.8 MG ORAL TABLET take 1 tab po qday VITAMINS 0.8 MG ORAL TABLET [id number]-[id number]-P E-FA Inactive TESSALON PERLES 100 MG ORAL CAPSULE 1 tablet by mouth 3 times da cory TESSALON PERLES 100 MG ORAL CAPSULE 213285 BENZONATATE Inactive AMOXICILLIN 500 MG ORAL CAPSULE 1 tab by mouth 3 times daily 201 02/21/05 AMOXICILLIN 500 MG ORAL CAPSULE 047410 AMOXICILLIN Inactive GUAIFENESIN-CODEINE 100-10 MG/5ML ORAL SYRUP 2 tsp every 6 hours prn GUAIFENESIN-CODEINE 100-10 MG/5ML ORAL SYRUP 058004 GUAIFENESIN-CODEINE Inactive VICKS DAYQUIL SEVERE COLD/FLU TABLET 1 tab every 6 hours prn 201 02/22/17 VICKS DAYQUIL SEVERE COLD/FLU TABLET PHENYLEPHRI [id number]-JG-APAP TABS Inactive BACTRIM DS 800-160 MG ORAL TABLET 1 twice a day 05/30 BACTRIM DS 800-160 MG ORAL TABLET 215010 SULFAMETHOXAZOLE-TRIMETHOPRIM Inactiv e PROMETHAZINE HCL 25 MG ORAL TABLET 1 four times a day as nee ded for vomiting PROMETHAZINE HCL 25 MG ORAL TABLET 965751 PROMETHAZINE HCL Inactive ZYRTEC ALLERGY 10 MG ORAL CAPSULE 1 po qd ZYRTEC ALLERGY 10 MG ORAL CAPSULE CETIRIZINE HCL Inactive MACROBID 100 MG ORAL CAPSULE 1 cap by mouth twice daily MACROBID 100 MG ORAL CAPSULE 1794979 NITROFURANTOIN MONOHYD MACRO In active LOMOTIL 2.5-0.025 MG ORAL TABLET 1 to 2 four times a day as needed for diarrhea LOMOTIL 2.5-0.025 MG ORAL TABLET 6285855 DIPHENOXYLATE-ATROPINE Inactive CYCLOBENZAPRINE HCL 10 MG ORAL TABLET 1/2 - 1 tablet b y mouth three times daily as needed for muscle spasm/pain CYCLOBEN ZAPRINE HCL 10 MG ORAL TABLET 120404 CYCLOBENZAPRINE HCL Inactive AMOXICILLIN 500 MG ORAL TABLET 2 tabs twice a day for 10 days 20 07/09/11 AMOXICILLIN 500 MG ORAL TABLET 259637 AMOXICILLIN I nactive LOMOTIL 2.5-0.025 MG ORAL TABLET 1 to 2 four times a day as needed for diarrhea LOMOTIL 2.5-0.025 MG ORAL TABLET 3458530 DIPHENOXYLATE-ATROPINE Inactive ZOFRAN 4 MG ORAL TABLET 1 TAB PO Q 6 HRS PRN NAUSEA 20 07/10/15 ZOFRAN 4 MG ORAL TABLET 691648 ONDANSETRON HCL Inactive CITRATE OF MAGNESIA ORAL SOLUTION 1 bottle today for constipatio n CITRATE OF MAGNESIA ORAL SOLUTION 8630299 MAGNESIUM CITR ATE Inactive PROMETHAZINE HCL 12.5 MG ORAL TABLET 1 tablet by mouth every 6 hours as needed for nausea/vomiting PROMETHAZINE HCL 12.5 MG ORA L TABLET 896679 PROMETHAZINE HCL Inactive PREDNISONE 20 MG ORAL TABLET 1 tablet twice daily for 2 days, then 1 tablet once daily for 2 days PREDNISONE 20 MG ORAL TABLET 557097 PREDNISONE Inactive ALPRAZOLAM 0.25 MG ORAL TABLET 1 tablet by mouth every 8 hours as needed for stress ALPRAZOLAM 0.25 MG ORAL TABLET 198776 ALPRA ZOLAM Inactive FLONASE 50 MCG/ACT NASAL SUSPENSION 1 spray each nostr il twice daily for allergies and runny nose until gone FLON ASE 50 MCG/ACT NASAL SUSPENSION FLUTICASONE PROPIONATE Inactive PREDNISONE 20 MG ORAL TABLET 1 tablet daily for airway inflammat ion PREDNISONE 20 MG ORAL TABLET 286998 PREDNISONE [place] ctive NAPROXEN 500 MG ORAL TABLET Take 1 tab BID NAPROXEN 500 MG ORAL TABLET 909804 NAPROXEN Inactive ZOLOFT 50 MG ORAL TABLET 1 tablet by mouth daily 12/08 ZOLOFT 50 MG ORAL TABLET 980198 SERTRALINE HCL Inactive LOMOTIL 2.5-0.025 MG ORAL TABLET 1 tab po four times a day as needed for diarrhea LOMOTIL 2.5-0.025 MG ORAL TABLET 2658021 DIPHENOXYLATE-ATROPINE Inactive CETIRIZINE HCL 10 MG ORAL TABLET 1 po qd PRN Allergies CETIRIZINE HCL 10 MG ORAL TABLET 2629357 CETIRIZINE HCL Inactiv e TUSSIONEX PENNKINETIC ER 10-8 MG/5ML ORAL SUSPENSION E XTENDED RELEASE 5ml po q12hr PRN Cough TUSSIONEX PENNKINETI C ER 10-8 MG/5ML ORAL SUSPENSION EXTENDED RELEASE HYDROCOD POLST-CHLORPHEN POLST I nactive NEXPLANON IMPLANT right arm subcutaneously NEXPLANON IMPLANT ETONOGESTREL IMPL Inactive PROTONIX 40 MG ORAL TABLET DELAYED RELEASE 1 po q a.m. PROTONIX 40 MG ORAL TABLET DELAYED RELEASE 580696 PANTOPRAZOLE SODI UM Inactive CHERATUSSIN AC 100-10 MG/5ML ORAL SYRUP 1 tsp by mouth every 4 hours as needed for cough CHERATUSSIN AC 100-10 MG/5ML ORAL SYRUP 9 59819 GUAIFENESIN-CODEINE Inactive GUAIFENESIN DM 400-20 MG ORAL [...] tid K EFLEX 500 MG ORAL CAPSULE 552529 CEPHALEXIN Inactive DIFLUCAN 100 MG ORAL TABLET 1 tablet by mouth daily, R EPEAT 2ND DOSE IN 7 DAYS IF STILL SYMPTOMATIC DIFLUCAN 100 MG ORAL TABLET 82792 8 FLUCONAZOLE Inactive PROTONIX 40 MG ORAL TABLET DELAYED RELEASE 1 pill by m outh daily, for acid reflux PROTONIX 40 MG ORAL TABLET DELAYED RELEAS E 088126 PANTOPRAZOLE SODIUM Inactive ALPRAZOLAM 0.25 MG ORAL TABLET 1 tablet by mouth twice a day as needed for stress/anxiety ALPRAZOLAM 0.25 MG ORAL TABLET 276649 ALPRAZOLAM Inactive ESCITALOPRAM OXALATE 10 MG ORAL TABLET take 1 tab po qhs for mod ESCITALOPRAM OXALATE 10 MG ORAL TABLET 523218 ESCITALOP JO OXALATE Inactive AMOXICILLIN 500 MG ORAL TABLET take 1 tab po TID 08/05 AMOXICILLIN 500 MG ORAL TABLET 246538 AMOXICILLIN Inactive AMOXICILLIN 500 MG ORAL CAPSULE 1 tab by mouth 3 times daily 201 11/24/09 AMOXICILLIN 500 MG ORAL CAPSULE 140570 AMOXICILLIN Inactive ZITHROMAX 250 MG ORAL TABLET 2 po today, then 1 po q days 2-5 20 09/23/25 ZITHROMAX 250 MG ORAL TABLET 361239 AZITHROMYCIN [place] ctive ZITHROMAX 250 MG ORAL TABLET 2 po today, then 1 po q days 2-5 20 10/03/08 ZITHROMAX 250 MG ORAL TABLET 206106 AZITHROMYCIN [place] ctive AZITHROMYCIN 500 MG ORAL TABLET 1 PO q day x 6 days 20 03/02/23 AZITHROMYCIN 500 MG ORAL TABLET 5904730 AZITHROMYCIN Inactive BACTRIM 400-80 MG ORAL TABLET take one po BID BACTRIM 400- 80 MG ORAL TABLET 876127 SULFAMETHOXAZOLE-TRIMETHOPRIM Inactive AZITHROMYCIN 250 MG ORAL TABLET 2 po qd x 1 day, then 1 po q d x 4 days AZITHROMYCIN 250 MG ORAL TABLET 387581 AZITHROMY ALLISON Inactive PREDNISONE 20 MG ORAL TABLET 2 tabs daily for 3 days, 1 tab daily for 3 days, 1/2 tab daily for 2 days PREDNISONE 20 MG ORAL T ABLET 578875 PREDNISONE Inactive ZITHROMAX 250 MG ORAL TABLET 2 po today, then 1 po q days 2-5 20 06/08/16 ZITHROMAX 250 MG ORAL TABLET 092935 AZITHROMYCIN [place] ctive FLAGYL 500 MG ORAL TABLET 1 tablet by mouth two times daily 2014 FLAGYL 500 MG ORAL TABLET 454174 METRONIDAZOLE Inacti ve AUGMENTIN 875-125 MG ORAL TABLET 1 tab by mouth twice daily with food AUGMENTIN 875-125 MG ORAL TABLET 774280 AMOXICIL ELSA-POT CLAVULANATE Inactive NAPROXEN 500 MG ORAL TABLET one tab PO BID NAPROXEN 500 MG ORAL TABLET 225597 NAPROXEN Inactive PREDNISONE 20 MG ORAL TABLET 2 tabs daily for 3 days, 1 tab daily for 3 days, 1/2 tab daily for 2 days PREDNISONE 20 MG ORAL T ABLET 329626 PREDNISONE Inactive AZITHROMYCIN 250 MG ORAL TABLET 2 po qd x 1 day, then 1 po q d x 4 days AZITHROMYCIN 250 MG ORAL TABLET 022716 AZITHROMY ALLISON Inactive PREDNISONE 20 MG ORAL TABLET 2 tabs daily for 3 days, 1 tab daily for 3 days, 1/2 tab daily for 2 days PREDNISONE 20 MG ORAL T ABLET 324891 PREDNISONE Inactive ZITHROMAX Z-EMIL 250 MG ORAL TABLET 2 today, then 1 daily for 4 d ays ZITHROMAX Z-EMIL 250 MG ORAL TABLET 214243 AZITHROMYCIN Inactive CEFDINIR 300 MG ORAL CAPSULE 1 po BID x 10 days 12/18 CEFDINIR 300 MG ORAL CAPSULE 145659 CEFDINIR Inactive CEFDINIR 300 MG ORAL CAPSULE 1 po BID x 10 days CEFDINIR 300 MG ORAL CAPSULE 643562 CEFDINIR Inactive PREDNISONE 20 MG ORAL TABLET 2 tabs daily for 3 days, 1 tab daily for 3 days, 1/2 tab daily for 2 days PREDNISONE 20 MG ORAL T ABLET 297155 PREDNISONE Inactive BACTRIM DS 800-160 MG ORAL TABLET 1 tab by mouth twice daily 201 05/02/30 BACTRIM DS 800-160 MG ORAL TABLET 582945 TRIMETHOPRIM-SULFAMETHOXAZOLE Inactive ZITHROMAX Z-EMIL 250 MG ORAL TABLET 2 today, then 1 daily for 4 d ays ZITHROMAX Z-EMIL 250 MG ORAL TABLET 835148 AZITHROMYCIN Inactive TAMIFLU 75 MG ORAL CAPSULE 1 po BID x 5 days 0 TAMIFLU 75 MG ORAL CAPSULE 523368 OSELTAMIVIR PHOSPHATE Inactive CEFDINIR 300 MG ORAL CAPSULE 1 po BID x 10 days 01/03 CEFDINIR 300 MG ORAL CAPSULE 483187 CEFDINIR Inactive ZITHROMAX Z-EMIL 250 MG TABS Take two tablets today and then 1 tablet daily for 4 days ZITHROMAX Z-EMIL 250 MG TABS 299731 AZITHROM YCIN Inactive AMOXICILLIN 875 MG ORAL TABLET 1 tab by mouth twice daily AMOXICILLIN 875 MG ORAL TABLET 653493 AMOXICILLIN Inactive Advance Directives Directive Description Start [...] Adult hep atitis B vaccine, unspecified formulation MMR (measles, mumps, rubella) virus immunization #2 Historical DPT immunization #5 DTaP oral polio vaccine (OPV) #4 Historical [...] 11 .0-15.0 platelet count 280 THOUSAND/UL 10*3/mm3 802-302 0228/02/18 mean platelet volume 11.6 fL 7.5-12.5 Lab [...] 5.42 Lab Report: CBC W/DIFF - Hematology monocytes as percent of blood leukocytes 9.7 % 1.7-9.3 hematocrit, blood 39.1 % 37.0-47.0 mean corpuscular volume, RBC 82 fL 80-97 mean corpuscular hemoglobin, RBC 25.6 pg 27. 0-31.2 mean corpuscular hemoglobin concentration, RBC 31.2 G/DL % 31.8-35.4 red blood cell distribution width 12.5 % 11 .6-14.8 platelet count 297 10^3/MM^3 10*3/mm3 217-623 7220/09/27 neutrophils as percent of blood leukocytes 55.9 % 42.2-75.2 leukocyte count, blood 7.6 10^3/MM^3 10*3/mm3 4.6-10.2 lymphocytes as percent of blood leukocytes 29.2 % 20.5-51.1 erythrocyte (RBC) count 4.77 10^6/MM^3 10*6/mm3 3.80-5.8 0 hemoglobin, blood 12.2 g/dL 12.0-16.0 Lab Report: [facility]/Adult/470, PROLACTIN - C hemistry [...] mg/dL Encounters Code Encounter Date Provider Facility CPT-12923 Level 4 Est. Patient 16:18:17 SACK KEEPER Myrna maldonado MD [facility] CPT-21544 Level 4 Est. Patient 16:39:44 SACK KEEPER Jose Zhong MD [facility] CPT-85319 [id number] Vst-Est Level IV 13:45:[address] Tali Devi PA-C [facility] CPT-48169 [id number] Vst-Est Level III 09:41:31 CDT Arie Casper MD [facility] CPT-91727 [id number] Vst-Est Level III 18:20:11 CDT Me lobito Russ [facility] CPT-00800 [id number] Vst-Est Level III 17:21:41 CDT Me lobito Russ [facility] CPT-28188 [id number] Vst-Est Level IV 13:30:22 C DT Arie Casper MD [facility] CPT-08586 Level 4 Est. Patient 13:05:26 CDT Myrna amldonado MD [facility]-88244 [id number] Vst-Est Level IV 20:50:21 C DT Arie Casper MD [facility] CPT-81810 Level 3 Est. Patient 11:49:34 SACK KEEPER Jessica boyd [facility] CPT-26185 Level 3 Est. Patient 14:55:50 SACK KEEPER Jose Zhong MD [facility] CPT-80934 Level 3 Est. Patient 10:21:41 SACK KEEPER Arie mcqueen MD [facility]-75807 Level 3 Est. Patient 11:35:15 SACK KEEPER Arie mcqueen MD [facility] CPT-57954 Level 3 Est. Patient 15:40:28 CDT Brii Are [facility] CPT-94995 Level 3 Est. Patient 16:40:36 CDT Arie mcqueen MD [facility] CPT-71703 Level 4 Est. Patient 15:29:22 SACK KEEPER Arie mcqueen MD [facility] CPT-38742 Level 3 Est. Patient 15:18:16 SACK KEEPER Jono black DO [facility] CPT-62002 Level 4 Est. Patient 12:08:40 SACK KEEPER Brii Are ll [facility] CPT-36033 Level 3 Est. Patient 09:24:42 CDT Brii Are ll [facility] CPT-92293 Level 3 Est. Patient 09:12:56 CDT Arie mcqueen MD [facility] CPT-39975 Level 3 Est. Patient 16:40:54 CDT Jose Zhong MD [facility] CPT-87968 Level 2 Est. Patient 13:01:13 CDT Brii Are ll [facility] CPT-33097 Level 3 Est. Patient 11:55:30 SACK KEEPER Jono black -75996 Level 3 Est. Patient 09:52:36 SACK KEEPER Briiarnaldo escalante APRN [facility] CPT-41166 Level 3 Est. Patient 16:25:33 SACK KEEPER Rich Rosales MD [facility]-45438 Level 3 Est. Patient 20:33:55 CDT Arie mcqueen MD [facility]-23906 Level 3 Est. Patient 14:18:20 CDT Rich Rosales MD [facility]-11234 Level 4 Est. Patient 09:34:31 CDT Arie mcqueen MD [facility]-25292 Level 3 Est. Patient 09:08:55 SACK KEEPER Liliana vincent MD PhD [facility]-34732 Level 3 Est. Patient 16:44:07 SACK KEEPER Arie mcqueen MD [facility] CPT-54030 Level 3 Est. Patient 10:44:27 CDT Arie mcqueen MD [facility]-16655 Level 3 Est. Patient 08:55:41 CDT Jose Zhong MD [facility]-75200 Level 3 Est. Patient 18:37:31 CDT Liliana vincent MD PhD [facility]-26615 Level 3 Est. Patient 14:28:23 CDT Abelardo HERNANDEZ [facility]-88256 Level 3 Est. Patient 15:18:13 SACK KEEPER [facility] [facility]-[id number] Level 3 Est. Patient 10:11:29 SACK KEEPER Arie mcqueen MD [facility]-[id number] Level 3 Est. Patient 10:55:57 SACK KEEPER Jono black DO [facility] CPT-19261 Level 3 Est. Patient 17:29:05 CDT Arie mcqueen MD [facility] Procedures Code Procedure Name Date Entry Date Standard Desc ription CPT-35337 Sono OB transvag XRAY USE ONLY 17:12:53 CS T CPT-67639 Sono OB transvag XRAY USE ONLY 17:11:12 CS T CPT-43777 UHCG Urine - MARC ONLY 12:13:59 SACK KEEPER 12/11 CPT-98772 Spec Collection and Handling Fee 12:13:[address] CPT-53337 Visit 12:13:59 SACK KEEPER CPT-42825 First Vx - Ix admin via ID I M or jet injects without counseling by physician 13:00:15 SACK KEEPER CPT-04648 Flulaval Intramuscular Injectable 13:00:15 SACK KEEPER CPT-15384 Urine Dip (Floor Use Only) 12:20:20 SACK KEEPER 201 06/03/24 CPT-38771 Sono Soft Tissue Head and Neck - XRAY US E ONLY 17:10:14 CDT CPT-54878 Ear Wash with irrigation 17:21:41 CDT 07/04 CPT-24998 Nexplanon Removal 15:40:28 CDT CPT-53598 Sono transvag pelvis non OB uterus ovari es cervix - XRAY USE ONLY 08:58:14 SACK KEEPER CPT-83190 UA w micro - LAB USE ONLY 16:04:56 SACK KEEPER 2015 CPT-08060 Wet Prep/GEN - LAB USE ONLY 16:04:56 SACK KEEPER 20 08/10/29 CPT-26180 First Vx - Ix admin via ID I M or jet injects without counseling by physician 16:57:10 CDT CPT-85000 Fluzone Preservative Free Intramuscular Suspension 16:57:10 CDT CPT-J0696 Rocephin 1000 mg (Ceftriaxone) 11:49:23 CDT CPT-J1040 Depo Medrol 80 mg (Methyl Prednisolone A cetate) 11:49:23 CDT CPT-J1100 Decadron 8mg (Dexamethasone) 11:49:23 CDT 2 CPT-37438 Abx/Therapy Injection 11:49:23 CDT CPT-57562 Abx/Therapy Injection 11:49:23 CDT CPT-04078 Abd compl w upright 09:07:26 SACK KEEPER CPT-64578 Ear Wash 16:12:47 SACK KEEPER CPT-OV Office Visit 11:12:01 CDT CPT-OV Office Visit 15:30:23 CDT CPT-52712 Sono pelvis non OB uterus ovaries cervix 15:50:44 CDT CPT-50371 Hand comp min 3V 16:42:32 CDT CPT-03248 Abd compl w upright 12:17:01 CDT CPT-76368 Nexplanon Placement 15:07:39 SACK KEEPER CPT-08388 Removal of IUD 15:07:39 SACK KEEPER CPT-10053 TB Tubersol 12:09:32 CDT CPT-21505 TB Tubersol 13:55:43 CDT
--- OUTSIDE RECORDS SUMMARY | 2020-03-03 06:46 | XMS REPORT | Clinical Summary ---
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 DILAUDID Severe Active Brii MARROQUIN RN [...] quadrant Urinary frequency 788.41 Inactive Roseann Crawford [facility] Urinary frequency Urinary frequency 788.41 Resolved [...] Vaccination for Prophylaxis V04.81 Inactive Brii Luchoboris CALENDER FEEDER Need for prophylactic vaccin ation and inoculation [...] 3-4 times per day 12/11 PYRIDOXINE HCL 95559868355 Active Myrna Roberto MD Active UNISOM SLEEPTABS 25 MG ORAL TABLET one tab PO qhs DOXYLAMINE SUCCINATE (SLEEP) 37159506006 Active Myrna Roberto MD Active TYLENOL 325 MG ORAL CAPSULE PRN ACETAMINOPHEN 000 79777930 Active Brii Pacheco Active ESCITALOPRAM OXALATE 10 MG ORAL TABLET take 1 tab po qhs for mod ESCITALOPRAM OXALATE 42051427852 No Longer Active Brii Tara Active ALPRAZOLAM 0.25 MG ORAL TABLET 1 tablet by mouth twice a day as needed for stress/anxiety ALPRAZOLAM 09883423846 No Longer Active Brii Tara Active PROTONIX 40 MG ORAL TABLET DELAYED RELEASE 1 pill by m outh daily, for acid reflux PANTOPRAZOLE SODIUM 60511205277 No Longer Activ e Brii Tara Active DIFLUCAN 100 MG ORAL TABLET 1 tablet by mouth daily, R EPEAT 2ND DOSE IN 7 DAYS IF STILL SYMPTOMATIC FLUCONAZOLE 27831782789 No Long er Active Nilam Raida Active KEFLEX 500 MG ORAL CAPSULE 1 po tid CEPHALEXI N 15297388273 No Longer Active Tali Devi PA-C Active CONCEPT DHA 53.5-38-1 MG ORAL CAPSULE 1 tablet daily [id number]-OMEGA 3 98530789878 Active Oxana Souza LPN Active AMOXICILLIN 875 MG ORAL TABLET 1 tab by mouth twice daily 1 AMOXICILLIN 04250307231 No Longer Active Brii Russ APRN Active TUSSIONEX PENNKINETIC ER 10-8 MG/5ML ORAL SUSPENSION E XTENDED RELEASE 5ml po q12hr PRN Cough HYDROCOD POLST-CHLORPHEN POLST 5 5193993108 No Longer Active Myrna Roberto MD Active ZITHROMAX Z-EMIL 250 MG TABS Take two tablets today and then 1 tablet daily for 4 days AZITHROMYCIN 99947229341 No Longer Active Flaco Rosales MD Active GUAIFENESIN DM 400-20 MG ORAL TABLET 1 pill by mouth t wice daily, if needed for cough DEXTROMETHORPHAN-GUAIFENESIN 69093709253 No Longer Active Rich Rosales MD Active CEFDINIR 300 MG ORAL CAPSULE 1 po BID x 10 days CEFDINIR 68926279794 No Longer Active Jessica Heaton APRN Active CHERATUSSIN AC 100-10 MG/5ML ORAL SYRUP 1 tsp by mouth every 4 hours as needed for cough GUAIFENESIN-CODEINE 99265129215 No Longe r Active Jessica Heaton APRN Active TAMIFLU 75 MG ORAL CAPSULE 1 po BID x 5 days 0 OSELTAMIVIR PHOSPHATE 13142920703 No Longer Active Jose Zhong MD Activ e ZITHROMAX Z-EMIL 250 MG ORAL TABLET 2 today, then 1 daily for 4 d ays AZITHROMYCIN 57275374388 No Longer Active Arie Casper MD Active PROTONIX 40 MG ORAL TABLET DELAYED RELEASE 1 po q a.m. PANTOPRAZOLE SODIUM 57715438240 No Longer Active Arie Casper MD Active BACTRIM DS 800-160 MG ORAL TABLET 1 tab by mouth twice daily 201 05/02/30 TRIMETHOPRIM-SULFAMETHOXAZOLE 03158703297 No Longer Active R KELLIE Sandoval Active NEXPLANON IMPLANT right arm subcutaneously ETONOGESTREL IMPL 43948950219 No Longer Active Brii Russ APRN Active TUSSIONEX PENNKINETIC ER 10-8 MG/5ML ORAL SUSPENSION E XTENDED RELEASE 5ml po q12hr PRN Cough HYDROCOD POLST-CHLORPHEN POLST 5 5107300277 No Longer Active Brii Russ APRN Active CETIRIZINE HCL 10 MG ORAL TABLET 1 po qd PRN Allergies CETIRIZINE HCL 27549203296 No Longer Active Brii Russ APRN Activ e PREDNISONE 20 MG ORAL TABLET 2 tabs daily for 3 days, 1 tab daily for 3 days, 1/2 tab daily for 2 days PREDNISONE 98606304061 No Longer Active Arie Casper MD Active LOMOTIL 2.5-0.025 MG ORAL TABLET 1 tab po four times a day as needed for diarrhea DIPHENOXYLATE-ATROPINE 78433663730 No Lo nger Active Arie Casper MD Active ZOLOFT 50 MG ORAL TABLET 1 tablet by mouth daily 12/08 SERTRALINE HCL 03968297878 No Longer Active Arie Casper MD Ac tive NAPROXEN 500 MG ORAL TABLET Take 1 tab BID NAPR OXEN 37585298009 No Longer Active Arie Casper MD Active CEFDINIR 300 MG ORAL CAPSULE 1 po BID x 10 days CEFDINIR 64962329379 No Longer Active Brii Russ APRN Active PREDNISONE 20 MG ORAL TABLET 1 tablet daily for airway inflammat ion PREDNISONE 93438316263 No Longer Active Brii Russ APRN A ctive CEFDINIR 300 MG ORAL CAPSULE 1 po BID x 10 days CEFDINIR 94820135504 No Longer Active Jono Gagnon DO Active FLONASE 50 MCG/ACT NASAL SUSPENSION 1 spray each nostr il twice daily for allergies and runny nose until gone FLUT ICASONE PROPIONATE 86496999143 No Longer Active Jono Gagnon DO Active ALPRAZOLAM 0.25 MG ORAL TABLET 1 tablet by mouth every 8 hours as needed for stress ALPRAZOLAM 42215342417 No Longer Active Jono Gagnon DO Active ZITHROMAX Z-EMIL 250 MG ORAL TABLET 2 today, then 1 daily for 4 d ays AZITHROMYCIN 73334442990 No Longer Active Arie Casper MD Active PREDNISONE 20 MG ORAL TABLET 2 tabs daily for 3 days, 1 tab daily for 3 days, 1/2 tab daily for 2 days PREDNISONE 51902968222 No Longer Active Brii Russ APRN Active PREDNISONE 20 MG ORAL TABLET 1 tablet twice daily for 2 days, then 1 tablet once daily for 2 days PREDNISONE 32525029951 No Longer Active Brii Russ APRN Active PROMETHAZINE HCL 12.5 MG ORAL TABLET 1 tablet by mouth every 6 hours as needed for nausea/vomiting PROMETHAZINE HCL 17866057252 No L onger Active Jono Gagnon DO Active CITRATE OF MAGNESIA ORAL SOLUTION 1 bottle today for constipatio n MAGNESIUM CITRATE 79892622196 No Longer Active Jono Gagnon DO Active ZOFRAN 4 MG ORAL TABLET 1 TAB PO Q 6 HRS PRN NAUSEA 20 07/10/15 ONDANSETRON HCL 80868453156 No Longer Active Brii Russ APRN Acti ve LOMOTIL 2.5-0.025 MG ORAL TABLET 1 to 2 four times a day as needed for diarrhea DIPHENOXYLATE-ATROPINE 20021750982 No Longer Active January Russ APRN Active AMOXICILLIN 500 MG ORAL TABLET 2 tabs twice a day for 10 days 20 07/09/11 AMOXICILLIN 35123867916 No Longer Active Brii Russ APRN Active CYCLOBENZAPRINE HCL 10 MG ORAL TABLET 1/2 - 1 tablet b y mouth three times daily as needed for muscle spasm/pain CYCLOBENZAPRINE HCL 14668660741 No Longer Active Arie Casper MD Active LOMOTIL 2.5-0.025 MG ORAL TABLET 1 to 2 four times a day as needed for diarrhea DIPHENOXYLATE-ATROPINE 23732730387 No Longer Active Fozia Casper MD Active MACROBID 100 MG ORAL CAPSULE 1 cap by mouth twice daily NITROFURANTOIN MONOHYD MACRO 56531823155 No Longer Active Arie Casper MD Active ZYRTEC ALLERGY 10 MG ORAL CAPSULE 1 po qd CE TIRIZINE HCL 02272172166 No Longer Active Arie Casper MD Active AZITHROMYCIN 250 MG ORAL TABLET 2 po qd x 1 day, then 1 po q d x 4 days AZITHROMYCIN 69243280474 No Longer Active Jessica salgado CALENDER FEEDER Active PREDNISONE 20 MG ORAL TABLET 2 tabs daily for 3 days, 1 tab daily for 3 days, 1/2 tab daily for 2 days PREDNISONE 92141386151 No Longer Active Jessica Heaton CALENDER FEEDER Active PROMETHAZINE HCL 25 MG ORAL TABLET 1 four times a day as nee ded for vomiting PROMETHAZINE HCL 44095626902 No Longer Active Myrna Roberto MD Active BACTRIM DS 800-160 MG ORAL TABLET 1 twice a day 05/30 SULFAMETHOXAZOLE-TRIMETHOPRIM 80698918581 No Longer Active Myrna Roberto MD Active VICKS DAYQUIL SEVERE COLD/FLU TABLET 1 tab every 6 hours prn 201 02/22/17 [id number]-APAP TABS 16901451015 No Longer Active Chris Roberto MD Active GUAIFENESIN-CODEINE 100-10 MG/5ML ORAL SYRUP 2 tsp every 6 hours prn GUAIFENESIN-CODEINE 63928456304 No Longer Active Myrna Roberto MD Active NAPROXEN 500 MG ORAL TABLET one tab PO BID NAPR OXEN 42104206960 No Longer Active Myrna Roberto MD Active AUGMENTIN 875-125 MG ORAL TABLET 1 tab by mouth twice daily with food AMOXICILLIN-POT CLAVULANATE 08469114945 No Longer Act zaid Liliana Estrada MD PhD Active AMOXICILLIN 500 MG ORAL CAPSULE 1 tab by mouth 3 times daily 201 02/21/05 AMOXICILLIN 01260645374 No Longer Active Liliana Estrada MD PhD Active TESSALON PERLES 100 MG ORAL CAPSULE 1 tablet by mouth 3 times da cory BENZONATATE 35851405452 No Longer Active Liliana Estrada MD PhD Active FLAGYL 500 MG ORAL TABLET 1 tablet by mouth two times daily 2014 METRONIDAZOLE 13755375200 No Longer Active Nilam Doran tive ZITHROMAX 250 MG ORAL TABLET 2 po today, then 1 po q days 2-5 20 06/08/16 AZITHROMYCIN 81212949397 No Longer Active Arie Casper MD Active VITAMINS 0.8 MG ORAL TABLET take 1 tab po qday [id number] 66325775080 No Longer Active Arie Casper MD Active IBUPROFEN 800 MG ORAL TABLET take one po Q 8 hours 201 02/01/16 IBUPROFEN 36236346197 No Longer Active Arie Casper MD Acti ve [facility] TUSSIN COUGH/COLD CF 5-10-100 MG/5ML ORAL LIQUID 2 teasp oons every 4 hours [id number] 34518267282 No Longer Active Blaine Casper MD Active COMTREX COLD/COUGH DAY/NITE MS 5-2-10-325 MG ORAL 2 caps deja ry 4 hours [id number]-APAP 70495386928 No Longer Active Landon Casper MD Active CHLORASEPTIC MAX SORE THROAT 15-10 MG MOUTH/THROAT LOZENGE 1 every 2 hours prn BENZOCAINE-MENTHOL 28292081039 No Longer Active Arie Casper MD Active PREDNISONE 20 MG ORAL TABLET 2 tabs daily for 3 days, 1 tab daily for 3 days, 1/2 tab daily for 2 days PREDNISONE 54669697781 No Longer Active Jose Zhong MD Active AZITHROMYCIN 250 MG ORAL TABLET 2 po qd x 1 day, then 1 po q d x 4 days AZITHROMYCIN 87633781692 No Longer Active Jose Mcwilliams MD Active ZOFRAN ODT 4 MG ORAL TABLET DISINTEGRATING 1 po q6hr PRN Nausea ONDANSETRON 90232233795 No Longer Active Rich Rosales MD Active ZOFRAN 4 MG ORAL TABLET 1 tablet every 4 hours ONDANSETRON HCL 26401405952 No Longer Active Rich Rosales MD Activ e MUCINEX 600 MG ORAL TABLET EXTENDED RELEASE 12 HOUR Ta ke 1-2 tablets every 12 hours GUAIFENESIN 47494101463 No Longer Active Rich Rosales MD Active BACTRIM 400-80 MG ORAL TABLET take one po BID SULFAMETHOXAZOLE-TRIMETHOPRIM 66155443816 No Longer Active Abelardo HERNANDEZ Active AZITHROMYCIN 500 MG ORAL TABLET 1 PO q day x 6 days 20 03/02/23 AZITHROMYCIN 41112158717 No Longer Active Tin HERNANDEZ Activ e ZITHROMAX 250 MG ORAL TABLET 2 po today, then 1 po q days 2-5 20 10/03/08 AZITHROMYCIN 61412739469 No Longer Active Arie Casper MD Active ZITHROMAX 250 MG ORAL TABLET 2 po today, then 1 po q days 2-5 20 09/23/25 AZITHROMYCIN 36860115312 No Longer Active Arie Casper MD Active AMOXICILLIN 500 MG ORAL CAPSULE 1 tab by mouth 3 times daily 201 11/24/09 AMOXICILLIN 22456360548 No Longer Active Arie Casper MD Active BACTRIM DS 800-160 MG ORAL TABLET 1 tab by mouth twice daily 201 11/03/14 TRIMETHOPRIM-SULFAMETHOXAZOLE 79470359409 No Longer Active Fozia Casper MD Active AMOXICILLIN 500 MG ORAL TABLET take 1 tab po TID 08/05 AMOXICILLIN 30608101723 No Longer Active Arie Casper MD Acti [...] 4 hours ZOFRAN 4 MG ORAL TABLET 803667 ONDANSETRON HCL Inactive ZOFRAN ODT 4 MG [...] COLD/COUGH DAY/NITE MS 5-2-10-325 MG ORA L [id number] Inactive [facility] TUSSIN COUGH/COLD CF 5-10-100 MG/5ML ORAL LIQUID 2 teasp oons every 4 hours [facility] TUSSIN COUGH/COLD CF 5-10-100 MG/5ML ORAL LI QUID [id number] Inactive IBUPROFEN 800 MG ORAL TABLET take one po Q 8 hours 201 02/01/16 IBUPROFEN 800 MG ORAL TABLET IBUPROFEN Inactive VITAMINS 0.8 MG ORAL TABLET take 1 tab po qday VITAMINS 0.8 MG ORAL TABLET [id number] E-FA Inactive TESSALON PERLES 100 MG ORAL CAPSULE 1 tablet by mouth 3 times da cory TESSALON PERLES 100 MG ORAL CAPSULE 19730630 BENZONATATE Inactive AMOXICILLIN 500 MG ORAL CAPSULE 1 tab by mouth 3 times daily 201 02/21/05 AMOXICILLIN 500 MG ORAL CAPSULE 822608 AMOXICILLIN Inactive GUAIFENESIN-CODEINE 100-10 MG/5ML ORAL SYRUP 2 tsp every 6 hours prn GUAIFENESIN-CODEINE 100-10 MG/5ML ORAL SYRUP 730742 GUAIFENESIN-CODEINE Inactive VICKS DAYQUIL SEVERE COLD/FLU TABLET 1 tab every 6 hours prn 201 02/22/17 VICKS DAYQUIL SEVERE COLD/FLU TABLET PHENYLEPHRI BB-ZZ-FW-APAP TABS Inactive BACTRIM DS 800-160 MG ORAL TABLET 1 twice a day 05/30 BACTRIM DS 800-160 MG ORAL TABLET 976397 SULFAMETHOXAZOLE-TRIMETHOPRIM Inactiv e PROMETHAZINE HCL 25 MG ORAL TABLET 1 four times a day as nee ded for vomiting PROMETHAZINE HCL 25 MG ORAL TABLET 642194 PROMETHAZINE HCL Inactive ZYRTEC ALLERGY 10 MG ORAL CAPSULE 1 po qd ZYRTEC ALLERGY 10 MG ORAL CAPSULE CETIRIZINE HCL Inactive MACROBID 100 MG ORAL CAPSULE 1 cap by mouth twice daily MACROBID 100 MG ORAL CAPSULE 2810134 NITROFURANTOIN MONOHYD MACRO In active LOMOTIL 2.5-0.025 MG ORAL TABLET 1 to 2 four times a day as needed for diarrhea LOMOTIL 2.5-0.025 MG ORAL TABLET 0958468 DIPHENOXYLATE-ATROPINE Inactive CYCLOBENZAPRINE HCL 10 MG ORAL TABLET 1/2 - 1 tablet b y mouth three times daily as needed for muscle spasm/pain CYCLOBEN ZAPRINE HCL 10 MG ORAL TABLET 166723 CYCLOBENZAPRINE HCL Inactive AMOXICILLIN 500 MG ORAL TABLET 2 tabs twice a day for 10 days 20 07/09/11 AMOXICILLIN 500 MG ORAL TABLET 721983 AMOXICILLIN I nactive LOMOTIL 2.5-0.025 MG ORAL TABLET 1 to 2 four times a day as needed for diarrhea LOMOTIL 2.5-0.025 MG ORAL TABLET 9709498 DIPHENOXYLATE-ATROPINE Inactive ZOFRAN 4 MG ORAL TABLET 1 TAB PO Q 6 HRS PRN NAUSEA 20 07/10/15 ZOFRAN 4 MG ORAL TABLET 292440 ONDANSETRON HCL Inactive CITRATE OF MAGNESIA ORAL SOLUTION 1 bottle today for constipatio n CITRATE OF MAGNESIA ORAL SOLUTION 5756235 MAGNESIUM CITR ATE Inactive PROMETHAZINE HCL 12.5 MG ORAL TABLET 1 tablet by mouth every 6 hours as needed for nausea/vomiting PROMETHAZINE HCL 12.5 MG ORA L TABLET 980346 PROMETHAZINE HCL Inactive PREDNISONE 20 MG ORAL TABLET 1 tablet twice daily for 2 days, then 1 tablet once daily for 2 days PREDNISONE 20 MG ORAL TABLET 478746 PREDNISONE Inactive ALPRAZOLAM 0.25 MG ORAL TABLET 1 tablet by mouth every 8 hours as needed for stress ALPRAZOLAM 0.25 MG ORAL TABLET 957500 ALPRA ZOLAM Inactive FLONASE 50 MCG/ACT NASAL SUSPENSION 1 spray each nostr il twice daily for allergies and runny nose until gone FLON ASE 50 MCG/ACT NASAL SUSPENSION FLUTICASONE PROPIONATE Inactive PREDNISONE 20 MG ORAL TABLET 1 tablet daily for airway inflammat ion PREDNISONE 20 MG ORAL TABLET 521738 PREDNISONE Lomax ctive NAPROXEN 500 MG ORAL TABLET Take 1 tab BID NAPROXEN 500 MG ORAL TABLET 352434 NAPROXEN Inactive ZOLOFT 50 MG ORAL TABLET 1 tablet by mouth daily 12/08 ZOLOFT 50 MG ORAL TABLET 181494 SERTRALINE HCL Inactive LOMOTIL 2.5-0.025 MG ORAL TABLET 1 tab po four times a day as needed for diarrhea LOMOTIL 2.5-0.025 MG ORAL TABLET 0944187 DIPHENOXYLATE-ATROPINE Inactive CETIRIZINE HCL 10 MG ORAL TABLET 1 po qd PRN Allergies CETIRIZINE HCL 10 MG ORAL TABLET 1083994 CETIRIZINE HCL Inactiv e TUSSIONEX PENNKINETIC ER 10-8 MG/5ML ORAL SUSPENSION E XTENDED RELEASE 5ml po q12hr PRN Cough TUSSIONEX PENNKINETI C ER 10-8 MG/5ML ORAL SUSPENSION EXTENDED RELEASE HYDROCOD POLST-CHLORPHEN POLST I nactive NEXPLANON IMPLANT right arm subcutaneously NEXPLANON IMPLANT ETONOGESTREL IMPL Inactive PROTONIX 40 MG ORAL TABLET DELAYED RELEASE 1 po q a.m. PROTONIX 40 MG ORAL TABLET DELAYED RELEASE 366060 PANTOPRAZOLE SODI UM Inactive CHERATUSSIN AC 100-10 MG/5ML ORAL SYRUP 1 tsp by mouth every 4 hours as needed for cough CHERATUSSIN AC 100-10 MG/5ML ORAL SYRUP 9 65465 GUAIFENESIN-CODEINE Inactive GUAIFENESIN DM 400-20 MG ORAL [...] tid K EFLEX 500 MG ORAL CAPSULE 671477 CEPHALEXIN Inactive DIFLUCAN 100 MG ORAL TABLET 1 tablet by mouth daily, R EPEAT 2ND DOSE IN 7 DAYS IF STILL SYMPTOMATIC DIFLUCAN 100 MG ORAL TABLET 15334 8 FLUCONAZOLE Inactive PROTONIX 40 MG ORAL TABLET DELAYED RELEASE 1 pill by m outh daily, for acid reflux PROTONIX 40 MG ORAL TABLET DELAYED RELEAS E 980962 PANTOPRAZOLE SODIUM Inactive ALPRAZOLAM 0.25 MG ORAL TABLET 1 tablet by mouth twice a day as needed for stress/anxiety ALPRAZOLAM 0.25 MG ORAL TABLET 152356 ALPRAZOLAM Inactive ESCITALOPRAM OXALATE 10 MG ORAL TABLET take 1 tab po qhs for mod ESCITALOPRAM OXALATE 10 MG ORAL TABLET 728716 ESCITALOP JO OXALATE Inactive AMOXICILLIN 500 MG ORAL TABLET take 1 tab po TID 08/05 AMOXICILLIN 500 MG ORAL TABLET 486698 AMOXICILLIN Inactive AMOXICILLIN 500 MG ORAL CAPSULE 1 tab by mouth 3 times daily 201 11/24/09 AMOXICILLIN 500 MG ORAL CAPSULE 527226 AMOXICILLIN Inactive ZITHROMAX 250 MG ORAL TABLET 2 po today, then 1 po q days 2-5 20 09/23/25 ZITHROMAX 250 MG ORAL TABLET 640768 AZITHROMYCIN Lomax ctive ZITHROMAX 250 MG ORAL TABLET 2 po today, then 1 po q days 2-5 20 10/03/08 ZITHROMAX 250 MG ORAL TABLET 224094 AZITHROMYCIN Lomax ctive AZITHROMYCIN 500 MG ORAL TABLET 1 PO q day x 6 days 20 03/02/23 AZITHROMYCIN 500 MG ORAL TABLET 6719130 AZITHROMYCIN Inactive BACTRIM 400-80 MG ORAL TABLET take one po BID BACTRIM 400- 80 MG ORAL TABLET 735633 SULFAMETHOXAZOLE-TRIMETHOPRIM Inactive AZITHROMYCIN 250 MG ORAL TABLET 2 po qd x 1 day, then 1 po q d x 4 days AZITHROMYCIN 250 MG ORAL TABLET 129144 AZITHROMY ALLISON Inactive PREDNISONE 20 MG ORAL TABLET 2 tabs daily for 3 days, 1 tab daily for 3 days, 1/2 tab daily for 2 days PREDNISONE 20 MG ORAL T ABLET 446255 PREDNISONE Inactive ZITHROMAX 250 MG ORAL TABLET 2 po today, then 1 po q days 2-5 20 06/08/16 ZITHROMAX 250 MG ORAL TABLET 903648 AZITHROMYCIN Lomax ctive FLAGYL 500 MG ORAL TABLET 1 tablet by mouth two times daily 2014 FLAGYL 500 MG ORAL TABLET 927640 METRONIDAZOLE Inacti ve AUGMENTIN 875-125 MG ORAL TABLET 1 tab by mouth twice daily with food AUGMENTIN 875-125 MG ORAL TABLET 655567 AMOXICIL ELSA-POT CLAVULANATE Inactive NAPROXEN 500 MG ORAL TABLET one tab PO BID NAPROXEN 500 MG ORAL TABLET 944917 NAPROXEN Inactive PREDNISONE 20 MG ORAL TABLET 2 tabs daily for 3 days, 1 tab daily for 3 days, 1/2 tab daily for 2 days PREDNISONE 20 MG ORAL T ABLET 999929 PREDNISONE Inactive AZITHROMYCIN 250 MG ORAL TABLET 2 po qd x 1 day, then 1 po q d x 4 days AZITHROMYCIN 250 MG ORAL TABLET 494513 AZITHROMY ALLISON Inactive PREDNISONE 20 MG ORAL TABLET 2 tabs daily for 3 days, 1 tab daily for 3 days, 1/2 tab daily for 2 days PREDNISONE 20 MG ORAL T ABLET 208798 PREDNISONE Inactive ZITHROMAX Z-EMIL 250 MG ORAL TABLET 2 today, then 1 daily for 4 d ays ZITHROMAX Z-EMIL 250 MG ORAL TABLET 329563 AZITHROMYCIN Inactive CEFDINIR 300 MG ORAL CAPSULE 1 po BID x 10 days 12/18 CEFDINIR 300 MG ORAL CAPSULE 649049 CEFDINIR Inactive CEFDINIR 300 MG ORAL CAPSULE 1 po BID x 10 days CEFDINIR 300 MG ORAL CAPSULE 751780 CEFDINIR Inactive PREDNISONE 20 MG ORAL TABLET 2 tabs daily for 3 days, 1 tab daily for 3 days, 1/2 tab daily for 2 days PREDNISONE 20 MG ORAL T ABLET 058211 PREDNISONE Inactive BACTRIM DS 800-160 MG ORAL TABLET 1 tab by mouth twice daily 201 05/02/30 BACTRIM DS 800-160 MG ORAL TABLET 846085 TRIMETHOPRIM-SULFAMETHOXAZOLE Inactive ZITHROMAX Z-EMIL 250 MG ORAL TABLET 2 today, then 1 daily for 4 d ays ZITHROMAX Z-EMIL 250 MG ORAL TABLET 804738 AZITHROMYCIN Inactive TAMIFLU 75 MG ORAL CAPSULE 1 po BID x 5 days 0 TAMIFLU 75 MG ORAL CAPSULE 538821 OSELTAMIVIR PHOSPHATE Inactive CEFDINIR 300 MG ORAL CAPSULE 1 po BID x 10 days 01/03 CEFDINIR 300 MG ORAL CAPSULE 371171 CEFDINIR Inactive ZITHROMAX Z-EMIL 250 MG TABS Take two tablets today and then 1 tablet daily for 4 days ZITHROMAX Z-EMIL 250 MG TABS 201677 AZITHROM YCIN Inactive AMOXICILLIN 875 MG ORAL TABLET 1 tab by mouth twice daily 1 AMOXICILLIN 875 MG ORAL TABLET 450479 AMOXICILLIN Inactive Advance Directives Directive Description Start [...] 11 .0-15.0 platelet count 280 THOUSAND/UL 10*3/mm3 653-097 7549/02/18 mean platelet volume 11.6 fL 7.5-12.5 Lab [...] 5.42 Lab Report: CBC W/DIFF - Hematology lymphocytes as percent of blood leukocytes 29.2 % 20.5-51.1 hematocrit, blood 39.1 % 37.0-47.0 mean corpuscular volume, RBC 82 fL 80-97 mean corpuscular hemoglobin, RBC 25.6 pg 27. 0-31.2 mean corpuscular hemoglobin concentration, RBC 31.2 G/DL % 31.8-35.4 red blood cell distribution width 12.5 % 11 .6-14.8 platelet count 297 10^3/MM^3 10*3/mm3 038-441 9578/09/27 monocytes as percent of blood leukocytes 9.7 % 1.7-9.3 neutrophils as percent of blood leukocytes 55.9 % 42.2-75.2 leukocyte count, blood 7.6 10^3/MM^3 10*3/mm3 4.6-10.2 erythrocyte (RBC) count 4.77 10^6/MM^3 10*6/mm3 3.80-5.8 [...] urine, semiquantitative negative urinalysis, routine Clean Catch pH, urine, semiquantitative 5 urine color yellow appearance, urine clear leukocyte esterase, urine, by dipstick negative nitrite, urine, semiquantitative negative urobilinogen, urine, semiquantitative (dipstick) 0.2 Office Visit: vaginal bleeding, nausea 3 06 - Chemistry HDL cholesterol, serum, target level 40 mg/dL cholesterol, target level 200 mg/dL triglyceride, target level 150 mg/dL Encounters Code Encounter Date Provider Facility CPT-05034 Level 4 Est. Patient 16:18:17 [employer] Myrna maldonado MD [facility] CPT-75809 Level 4 Est. Patient 16:39:44 [employer] Jose Zhong MD [facility] CPT-24225 [id number] Vst-Est Level IV 13:45:[address] Tali Devi PA-C [facility] CPT-98196 [id number] Vst-Est Level III 09:41:31 CDT Arie Casper MD [facility] CPT-27460 [id number] Vst-Est Level III 18:20:11 CDT Me lobito Russ [facility] CPT-82402 [id number] Vst-Est Level III 17:21:41 CDT Me lobito Russ [facility] CPT-32431 [id number] Vst-Est Level IV 13:30:22 C NIC Casper MD [facility] CPT-25993 Level 4 Est. Patient 13:05:26 CDT Myrna Real Bernabe maldonado MD [facility]-21738 [id number] Vst-Est Level IV 20:50:21 C DT Arie Casper MD [facility] CPT-19544 Level 3 Est. Patient 11:49:34 [employer] Jessica boyd [facility] CPT-44418 Level 3 Est. Patient 14:55:50 [employer] Jose Zhong MD [facility] CPT-61481 Level 3 Est. Patient 10:21:41 [employer] Arie mcqueen MD [facility] CPT-54699 Level 3 Est. Patient 11:35:15 [employer] Arie mcqueen MD [facility] CPT-89659 Level 3 Est. Patient 15:40:28 CDT Brii Are ll [facility] CPT-19207 Level 3 Est. Patient 16:40:36 CDT Arie mcqueen MD [facility] CPT-75888 Level 4 Est. Patient 15:29:22 [employer] Arie mcqueen MD [facility] CPT-97997 Level 3 Est. Patient 15:18:16 [employer] Jono black DO [facility] CPT-85252 Level 4 Est. Patient 12:08:40 [employer] Brii Are ll [facility] CPT-91234 Level 3 Est. Patient 09:24:42 CDT Brii Are ll [facility] CPT-03342 Level 3 Est. Patient 09:12:56 CDT Arie mcqueen MD [facility] CPT-66026 Level 3 Est. Patient 16:40:54 CDT Jose Zhong MD [facility] CPT-71334 Level 2 Est. Patient 13:01:13 CDT Brii Are ll [employer]ER [facility] CPT-56774 Level 3 Est. Patient 11:55:30 [employer] Jono black DO [facility] CPT-19995 Level 3 Est. Patient 09:52:36 [employer] Brii Are ll CALENDER FEEDER [facility] CPT-38289 Level 3 Est. Patient 16:25:33 [employer] Rich Rosales MD [facility] CPT-17965 Level 3 Est. Patient 20:33:55 CDT Arie mcqueen MD [facility]-18496 Level 3 Est. Patient 14:18:20 CDT Rich Rosales MD [facility]-14407 Level 4 Est. Patient 09:34:31 CDT Arie mcqueen MD [facility]-12728 Level 3 Est. Patient 09:08:55 [employer] Liliana vincent MD PhD [facility]-33609 Level 3 Est. Patient 16:44:07 [employer] Arie mcqueen MD [facility]-98304 Level 3 Est. Patient 10:44:27 CDT Arie mcqueen MD [facility]-76316 Level 3 Est. Patient 08:55:41 CDT Jose Zhong MD [facility]-08300 Level 3 Est. Patient 18:37:31 CDT Liliana vincent MD PhD [facility] CPT-[id number] Level 3 Est. Patient 14:28:23 CDT Abelardo HERNANDEZ [facility]-58500 Level 3 Est. Patient 15:18:13 [employer] Arie mcqueen MD [facility]-74828 Level 3 Est. Patient 10:11:29 [employer] Arie mcqueen MD [facility] CPT-56642 Level 3 Est. Patient 10:55:57 [employer] Jono Sarika Eliot black DO [facility] CPT-35588 Level 3 Est. Patient 17:29:05 CDT Arie mcqueen MD [facility] Procedures Code Procedure Name Date Entry Date Standard Desc ription CPT-51053 Sono OB transvag XRAY USE ONLY 17:12:53 CS T CPT-00077 Sono OB transvag XRAY USE ONLY 17:11:12 CS T CPT-02195 UHCG Urine - MARC ONLY 12:13:59 [employer] 12/11 CPT-33439 Spec Collection and Handling Fee 12:13:[address] CPT-39337 Visit 12:13:59 [employer] CPT-41188 First Vx - Ix admin via ID I M or jet injects without counseling by physician 13:00:15 [employer] CPT-48484 Flulaval Intramuscular Injectable 13:00:15 [employer] CPT-21516 Urine Dip (Floor Use Only) 12:20:20 [employer] 201 06/03/24 CPT-63709 Sono Soft Tissue Head and Neck - XRAY US E ONLY 17:10:14 CDT CPT-24868 Ear Wash with irrigation 17:21:41 CDT 07/04 CPT-26781 Nexplanon Removal 15:40:28 CDT CPT-66188 Sono transvag pelvis non OB uterus ovari es cervix - XRAY USE ONLY 08:58:14 [employer] CPT-87727 UA w micro - LAB USE ONLY 16:04:56 [employer] 2015 CPT-01793 Wet Prep/GEN - LAB USE ONLY 16:04:56 [employer] 20 08/10/29 CPT-47488 First Vx - Ix admin via ID I M or jet injects without counseling by physician 16:57:10 CDT CPT-03353 Fluzone Preservative Free Intramuscular Suspension 16:57:10 CDT CPT-J0696 Rocephin 1000 mg (Ceftriaxone) 11:49:23 CDT CPT-J1040 Depo Medrol 80 mg (Methyl Prednisolone A cetate) 11:49:23 CDT CPT-J1100 Decadron 8mg (Dexamethasone) 11:49:23 CDT 2 CPT-76433 Abx/Therapy Injection 11:49:23 CDT CPT-66944 Abx/Therapy Injection 11:49:23 CDT CPT-29942 Abd compl w upright 09:07:26 [employer] CPT-29566 Ear Wash 16:12:47 [employer] CPT-OV Office Visit 11:12:01 CDT CPT-OV Office Visit 15:30:23 CDT CPT-36369 Sono pelvis non OB uterus ovaries cervix 15:50:44 CDT CPT-80112 Hand comp min 3V 16:42:32 CDT CPT-38875 Abd compl w upright 12:17:01 CDT CPT-04778 Nexplanon Placement 15:07:39 [employer] CPT-58220 Removal of IUD 15:07:39 [employer] CPT-09212 TB Tubersol 12:09:32 CDT CPT-84765 TB Tubersol 13:55:43 CDT
--- OUTSIDE RECORDS SUMMARY | 2020-03-03 06:47 | XMS REPORT | Clinical Summary ---
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 DILAUDID Severe Active Brii MARROQUIN RN [...] Vaccination for Prophylaxis V04.81 Inactive Brii Petrona [employer]BER Need for prophylactic vaccin ation and inoculation [...] cheema MD PhD Fever ICD-780.60 Inactive Liliana Esrtada MD PhD 20 08/12/16 Symptom, cough ICD-786.2 [...] Inactive Jose rebolledo MD Constipation ICD-564.00 Inactive oJse rebolledo MD Bronchitis ICD-490 Inactive Jose Zhong [...] Zhong MD 2018 Vaginal bleeding ICD-623.8 Inactive Joes Mcwilliams MD High risk sexual behavior ICD-V69.2 [...] Vaccination for Prophylaxis ICD-V04.81 8 Inactive Nilam eWber Influenza Vaccination for Prophylaxis ICD-V04.81 5 Inactive [...] 3-4 times per day 12/11 PYRIDOXINE HCL 59928277767 Active Myrna Roberto MD Active UNISOM SLEEPTABS 25 MG ORAL TABLET one tab PO qhs DOXYLAMINE SUCCINATE (SLEEP) 07198164492 Active Myrna Roberto MD Active TYLENOL 325 MG ORAL CAPSULE PRN ACETAMINOPHEN 000 28314381 Active Brii Pacheco Active ESCITALOPRAM OXALATE 10 MG ORAL TABLET take 1 tab po qhs for mod ESCITALOPRAM OXALATE 28890504045 No Longer Active Brii Pacheco Active ALPRAZOLAM 0.25 MG ORAL TABLET 1 tablet by mouth twice a day as needed for stress/anxiety ALPRAZOLAM 22899420778 No Longer Active Brii Pacheco Active PROTONIX 40 MG ORAL TABLET DELAYED RELEASE 1 pill by m outh daily, for acid reflux PANTOPRAZOLE SODIUM 76784144221 No Longer Activ e Brii Pacheco Active DIFLUCAN 100 MG ORAL TABLET 1 tablet by mouth daily, R EPEAT 2ND DOSE IN 7 DAYS IF STILL SYMPTOMATIC FLUCONAZOLE 62178207977 No Long er Active Nilam Raida Active KEFLEX 500 MG ORAL CAPSULE 1 po tid CEPHALEXI N 13158756487 No Longer Active Tali Devi PA-C Active CONCEPT DHA 53.5-38-1 MG ORAL CAPSULE 1 tablet daily OLQGYI-YULSM-CMCB-FA-OMEGA 3 36914292549 Active Oxana Souza RELOCATION SERVICES SPECIALIST Active AMOXICILLIN 875 MG ORAL TABLET 1 tab by mouth twice daily 1 AMOXICILLIN 04716934736 No Longer Active Briiarnaldo Russ APRN Active TUSSIONEX PENNKINETIC ER 10-8 MG/5ML ORAL SUSPENSION E XTENDED RELEASE 5ml po q12hr PRN Cough HYDROCOD POLST-CHLORPHEN POLST 5 5734948340 No Longer Active Myrna Roberto MD Active ZITHROMAX Z-EMIL 250 MG TABS Take two tablets today and then 1 tablet daily for 4 days AZITHROMYCIN 20926983055 No Longer Active Flaco Rosales MD Active GUAIFENESIN DM 400-20 MG ORAL TABLET 1 pill by mouth t wice daily, if needed for cough DEXTROMETHORPHAN-GUAIFENESIN 70864528798 No Longer Active Rich Rosales MD Active CEFDINIR 300 MG ORAL CAPSULE 1 po BID x 10 days CEFDINIR 90712206317 No Longer Active Jessica Heaton APRN Active CHERATUSSIN AC 100-10 MG/5ML ORAL SYRUP 1 tsp by mouth every 4 hours as needed for cough GUAIFENESIN-CODEINE 27073692209 No Longe r Active Xochiltina Florina CABRERA Active TAMIFLU 75 MG ORAL CAPSULE 1 po BID x 5 days 0 OSELTAMIVIR PHOSPHATE 43781285589 No Longer Active Jose Zhong MD Activ e ZITHROMAX Z-EMIL 250 MG ORAL TABLET 2 today, then 1 daily for 4 d ays AZITHROMYCIN 44204774130 No Longer Active Arie Casper MD Active PROTONIX 40 MG ORAL TABLET DELAYED RELEASE 1 po q a.m. PANTOPRAZOLE SODIUM 91216675929 No Longer Active Arie Casper MD Active BACTRIM DS 800-160 MG ORAL TABLET 1 tab by mouth twice daily 201 05/02/30 TRIMETHOPRIM-SULFAMETHOXAZOLE 95125826210 No Longer Active R KELLIE Sandoval Active NEXPLANON IMPLANT right arm subcutaneously ETONOGESTREL IMPL 89982957424 No Longer Active Brii Russ APRN Active TUSSIONEX PENNKINETIC ER 10-8 MG/5ML ORAL SUSPENSION E XTENDED RELEASE 5ml po q12hr PRN Cough HYDROCOD POLST-CHLORPHEN POLST 5 4152674497 No Longer Active Brii Russ APRN Active CETIRIZINE HCL 10 MG ORAL TABLET 1 po qd PRN Allergies CETIRIZINE HCL 32114113947 No Longer Active Brii Russ APRN Activ e PREDNISONE 20 MG ORAL TABLET 2 tabs daily for 3 days, 1 tab daily for 3 days, 1/2 tab daily for 2 days PREDNISONE 79392548901 No Longer Active Arie Casper MD Active LOMOTIL 2.5-0.025 MG ORAL TABLET 1 tab po four times a day as needed for diarrhea DIPHENOXYLATE-ATROPINE 89411021233 No Lo nger Active Arie Casper MD Active ZOLOFT 50 MG ORAL TABLET 1 tablet by mouth daily 12/08 SERTRALINE HCL 72397646858 No Longer Active Arie Casper MD Ac tive NAPROXEN 500 MG ORAL TABLET Take 1 tab BID NAPR OXEN 54854230530 No Longer Active Arie Casper MD Active CEFDINIR 300 MG ORAL CAPSULE 1 po BID x 10 days CEFDINIR 95158725570 No Longer Active Brii Russ APRN Active PREDNISONE 20 MG ORAL TABLET 1 tablet daily for airway inflammat ion PREDNISONE 97455949778 No Longer Active Brii Russ APRN A ctive CEFDINIR 300 MG ORAL CAPSULE 1 po BID x 10 days CEFDINIR 81055421762 No Longer Active Jono Gagnon DO Active FLONASE 50 MCG/ACT NASAL SUSPENSION 1 spray each nostr il twice daily for allergies and runny nose until gone FLUT ICASONE PROPIONATE 44407275408 No Longer Active Jono Gagnon DO Active ALPRAZOLAM 0.25 MG ORAL TABLET 1 tablet by mouth every 8 hours as needed for stress ALPRAZOLAM 82794899223 No Longer Active Jono Gagnon DO Active ZITHROMAX Z-EMIL 250 MG ORAL TABLET 2 today, then 1 daily for 4 d ays AZITHROMYCIN 53204470759 No Longer Active Arie Casper MD Active PREDNISONE 20 MG ORAL TABLET 2 tabs daily for 3 days, 1 tab daily for 3 days, 1/2 tab daily for 2 days PREDNISONE 65629289239 No Longer Active Brii Russ APRN Active PREDNISONE 20 MG ORAL TABLET 1 tablet twice daily for 2 days, then 1 tablet once daily for 2 days PREDNISONE 20791981969 No Longer Active Brii Russ APRN Active PROMETHAZINE HCL 12.5 MG ORAL TABLET 1 tablet by mouth every 6 hours as needed for nausea/vomiting PROMETHAZINE HCL 61396465293 No L onger Active Jono Gagnon DO Active CITRATE OF MAGNESIA ORAL SOLUTION 1 bottle today for constipatio n MAGNESIUM CITRATE 95822679332 No Longer Active Jono Gagnon DO Active ZOFRAN 4 MG ORAL TABLET 1 TAB PO Q 6 HRS PRN NAUSEA 07/10/15 ONDANSETRON HCL 43225086899 No Longer Active Brii Russ APRN Acti ve LOMOTIL 2.5-0.025 MG ORAL TABLET 1 to 2 four times a day as needed for diarrhea DIPHENOXYLATE-ATROPINE 04695783164 No Longer Active January Russ APRN Active AMOXICILLIN 500 MG ORAL TABLET 2 tabs twice a day for 10 days 20 07/09/11 AMOXICILLIN 27275052037 No Longer Active Brii Russ APRN Active CYCLOBENZAPRINE HCL 10 MG ORAL TABLET 1/2 - 1 tablet b y mouth three times daily as needed for muscle spasm/pain CYCLOBENZAPRINE HCL 83962439792 No Longer Active Arie Casper MD Active LOMOTIL 2.5-0.025 MG ORAL TABLET 1 to 2 four times a day as needed for diarrhea DIPHENOXYLATE-ATROPINE 75547487790 No Longer Active D freddy Casper MD Active MACROBID 100 MG ORAL CAPSULE 1 cap by mouth twice daily NITROFURANTOIN MONOHYD MACRO 38612972037 No Longer Active Arie Casper MD Active ZYRTEC ALLERGY 10 MG ORAL CAPSULE 1 po qd CE TIRIZINE HCL 20589274951 No Longer Active Arie Casper MD Active AZITHROMYCIN 250 MG ORAL TABLET 2 po qd x 1 day, then 1 po q d x 4 days AZITHROMYCIN 70956574385 No Longer Active Jillina Marcell naomi [employer] TE[employer] MEMBER Active PREDNISONE 20 MG ORAL TABLET 2 tabs daily for 3 days, 1 tab daily for 3 days, 1/2 tab daily for 2 days PREDNISONE 41704364537 No Longer Active Waynellarlen Heaton [employer] TE[employer] MEMBER Active PROMETHAZINE HCL 25 MG ORAL TABLET 1 four times a day as nee ded for vomiting PROMETHAZINE HCL 04893077467 No Longer Active Myrna Roberto MD Active BACTRIM DS 800-160 MG ORAL TABLET 1 twice a day 05/30 SULFAMETHOXAZOLE-TRIMETHOPRIM 49652853187 No Longer Active Myrna Roberto MD Active VICKS DAYQUIL SEVERE COLD/FLU TABLET 1 tab every 6 hours prn 201 02/22/17 VARFCVIVLYBJT-AO-EX-APAP TABS 89605441659 No Longer Active K fany Roberto MD Active GUAIFENESIN-CODEINE 100-10 MG/5ML ORAL SYRUP 2 tsp every 6 hours prn GUAIFENESIN-CODEINE 77040172419 No Longer Active Myrna Roberto MD Active NAPROXEN 500 MG ORAL TABLET one tab PO BID NAPR OXEN 54632142339 No Longer Active Myrna Roberto MD Active AUGMENTIN 875-125 MG ORAL TABLET 1 tab by mouth twice daily with food AMOXICILLIN-POT CLAVULANATE 84280123264 No Longer Act zaid Liliana Estrada MD PhD Active AMOXICILLIN 500 MG ORAL CAPSULE 1 tab by mouth 3 times daily 201 02/21/05 AMOXICILLIN 32250960306 No Longer Active Liliana Estrada MD PhD Active TESSALON PERLES 100 MG ORAL CAPSULE 1 tablet by mouth 3 times da cory BENZONATATE 83224865644 No Longer Active Liliana Estrada MD PhD Active FLAGYL 500 MG ORAL TABLET 1 tablet by mouth two times daily 2014 METRONIDAZOLE 37402302404 No Longer Active Nilam Plattkatie Ac tive ZITHROMAX 250 MG ORAL TABLET 2 po today, then 1 po q days 2-5 20 06/08/16 AZITHROMYCIN 29931941437 No Longer Active Arie Casper MD Active VITAMINS 0.8 MG ORAL TABLET take 1 tab po qday RULFEXBX-[id number]-FA 81322980693 No Longer Active Arie Casper MD Active IBUPROFEN 800 MG ORAL TABLET take one po Q 8 hours 201 02/01/16 IBUPROFEN 23403891692 No Longer Active Arie Casper MD Acti ve [facility] TUSSIN COUGH/COLD CF 5-10-100 MG/5ML ORAL LIQUID 2 teasp oons every 4 hours [id number] 05040385624 No Longer Active Blaine Casper MD Active COMTREX COLD/COUGH DAY/NITE MS 5-2-10-325 MG ORAL 2 caps deja ry 4 hours AHANCMMYF-RIJ-TJ-APAP 59549230160 No Longer Active Da aleksandra Casper MD Active CHLORASEPTIC MAX SORE THROAT 15-10 MG MOUTH/THROAT LOZENGE 1 every 2 hours prn BENZOCAINE-MENTHOL 14727663988 No Longer Active Arie Casper MD Active PREDNISONE 20 MG ORAL TABLET 2 tabs daily for 3 days, 1 tab daily for 3 days, 1/2 tab daily for 2 days PREDNISONE 42846261750 No Longer Active Jose Zhong MD Active AZITHROMYCIN 250 MG ORAL TABLET 2 po qd x 1 day, then 1 po q d x 4 days AZITHROMYCIN 56762042470 No Longer Active Jose Mcwilliams MD Active ZOFRAN ODT 4 MG ORAL TABLET DISINTEGRATING 1 po q6hr PRN Nausea ONDANSETRON 90777765896 No Longer Active Rich Rosales MD Active ZOFRAN 4 MG ORAL TABLET 1 tablet every 4 hours ONDANSETRON HCL 93282048884 No Longer Active Rich Rosales MD Activ e MUCINEX 600 MG ORAL TABLET EXTENDED RELEASE 12 HOUR Ta ke 1-2 tablets every 12 hours GUAIFENESIN 31962629905 No Longer Active Rich Rosales MD Active BACTRIM 400-80 MG ORAL TABLET take one po BID SULFAMETHOXAZOLE-TRIMETHOPRIM 99700065141 No Longer Active Abelardo HERNANDEZ Active AZITHROMYCIN 500 MG ORAL TABLET 1 PO q day x 6 days 20 03/02/23 AZITHROMYCIN 20890561400 No Longer Active Tin HERNANDEZ Activ e ZITHROMAX 250 MG ORAL TABLET 2 po today, then 1 po q days 2-5 20 10/03/08 AZITHROMYCIN 63536458440 No Longer Active Arie Casper MD Active ZITHROMAX 250 MG ORAL TABLET 2 po today, then 1 po q days 2-5 20 09/23/25 AZITHROMYCIN 14404345610 No Longer Active Arie Casper MD Active AMOXICILLIN 500 MG ORAL CAPSULE 1 tab by mouth 3 times daily 201 11/24/09 AMOXICILLIN 80863878509 No Longer Active Arie Casper MD Active BACTRIM DS 800-160 MG ORAL TABLET 1 tab by mouth twice daily 201 11/03/14 TRIMETHOPRIM-SULFAMETHOXAZOLE 83306075255 No Longer Active Fozia Casper MD Active AMOXICILLIN 500 MG ORAL TABLET take 1 tab po TID 08/05 AMOXICILLIN 42131979441 No Longer Active Arie Casper MD Acti [...] 4 hours ZOFRAN 4 MG ORAL TABLET 361660 ONDANSETRON HCL Inactive ZOFRAN ODT 4 MG [...] COLD/COUGH DAY/NITE MS 5-2-10-325 MG ORA L [id number] Inactive [facility] TUSSIN COUGH/COLD CF 5-10-100 MG/5ML ORAL LIQUID 2 teasp oons every 4 hours [facility] TUSSIN COUGH/COLD CF 5-10-100 MG/5ML ORAL LI QUID [id number] Inactive IBUPROFEN 800 MG ORAL TABLET take one po Q 8 hours 201 02/01/16 IBUPROFEN 800 MG ORAL TABLET IBUPROFEN Inactive VITAMINS 0.8 MG ORAL TABLET take 1 tab po qday VITAMINS 0.8 MG ORAL TABLET [id number] E-FA Inactive TESSALON PERLES 100 MG ORAL CAPSULE 1 tablet by mouth 3 times da cory TESSALON PERLES 100 MG ORAL CAPSULE 907724 BENZONATATE Inactive AMOXICILLIN 500 MG ORAL CAPSULE 1 tab by mouth 3 times daily 201 02/21/05 AMOXICILLIN 500 MG ORAL CAPSULE 193166 AMOXICILLIN Inactive GUAIFENESIN-CODEINE 100-10 MG/5ML ORAL SYRUP 2 tsp every 6 hours prn GUAIFENESIN-CODEINE 100-10 MG/5ML ORAL SYRUP 998665 GUAIFENESIN-CODEINE Inactive VICKS DAYQUIL SEVERE COLD/FLU TABLET 1 tab every 6 hours prn 201 02/22/17 VICKS DAYQUIL SEVERE COLD/FLU TABLET PHENYLEPHRI TR-PU-KT-APAP TABS Inactive BACTRIM DS 800-160 MG ORAL TABLET 1 twice a day 05/30 BACTRIM DS 800-160 MG ORAL TABLET 170781 SULFAMETHOXAZOLE-TRIMETHOPRIM Inactiv e PROMETHAZINE HCL 25 MG ORAL TABLET 1 four times a day as nee ded for vomiting PROMETHAZINE HCL 25 MG ORAL TABLET 957083 PROMETHAZINE HCL Inactive ZYRTEC ALLERGY 10 MG ORAL CAPSULE 1 po qd ZYRTEC ALLERGY 10 MG ORAL CAPSULE CETIRIZINE HCL Inactive MACROBID 100 MG ORAL CAPSULE 1 cap by mouth twice daily MACROBID 100 MG ORAL CAPSULE 6460465 NITROFURANTOIN MONOHYD MACRO In active LOMOTIL 2.5-0.025 MG ORAL TABLET 1 to 2 four times a day as needed for diarrhea LOMOTIL 2.5-0.025 MG ORAL TABLET 9888416 DIPHENOXYLATE-ATROPINE Inactive CYCLOBENZAPRINE HCL 10 MG ORAL TABLET 1/2 - 1 tablet b y mouth three times daily as needed for muscle spasm/pain CYCLOBEN ZAPRINE HCL 10 MG ORAL TABLET 219035 CYCLOBENZAPRINE HCL Inactive AMOXICILLIN 500 MG ORAL TABLET 2 tabs twice a day for 10 days 20 07/09/11 AMOXICILLIN 500 MG ORAL TABLET 232979 AMOXICILLIN I nactive LOMOTIL 2.5-0.025 MG ORAL TABLET 1 to 2 four times a day as needed for diarrhea LOMOTIL 2.5-0.025 MG ORAL TABLET 9439493 DIPHENOXYLATE-ATROPINE Inactive ZOFRAN 4 MG ORAL TABLET 1 TAB PO Q 6 HRS PRN NAUSEA 20 07/10/15 ZOFRAN 4 MG ORAL TABLET 537534 ONDANSETRON HCL Inactive CITRATE OF MAGNESIA ORAL SOLUTION 1 bottle today for constipatio n CITRATE OF MAGNESIA ORAL SOLUTION 5419043 MAGNESIUM CITR ATE Inactive PROMETHAZINE HCL 12.5 MG ORAL TABLET 1 tablet by mouth every 6 hours as needed for nausea/vomiting PROMETHAZINE HCL 12.5 MG ORA L TABLET 490729 PROMETHAZINE HCL Inactive PREDNISONE 20 MG ORAL TABLET 1 tablet twice daily for 2 days, then 1 tablet once daily for 2 days PREDNISONE 20 MG ORAL TABLET 926491 PREDNISONE Inactive ALPRAZOLAM 0.25 MG ORAL TABLET 1 tablet by mouth every 8 hours as needed for stress ALPRAZOLAM 0.25 MG ORAL TABLET 728049 ALPRA ZOLAM Inactive FLONASE 50 MCG/ACT NASAL SUSPENSION 1 spray each nostr il twice daily for allergies and runny nose until gone FLON ASE 50 MCG/ACT NASAL SUSPENSION FLUTICASONE PROPIONATE Inactive PREDNISONE 20 MG ORAL TABLET 1 tablet daily for airway inflammat ion PREDNISONE 20 MG ORAL TABLET 932225 PREDNISONE [place] ctive NAPROXEN 500 MG ORAL TABLET Take 1 tab BID NAPROXEN 500 MG ORAL TABLET 026183 NAPROXEN Inactive ZOLOFT 50 MG ORAL TABLET 1 tablet by mouth daily 12/08 ZOLOFT 50 MG ORAL TABLET 088622 SERTRALINE HCL Inactive LOMOTIL 2.5-0.025 MG ORAL TABLET 1 tab po four times a day as needed for diarrhea LOMOTIL 2.5-0.025 MG ORAL TABLET 1263900 DIPHENOXYLATE-ATROPINE Inactive CETIRIZINE HCL 10 MG ORAL TABLET 1 po qd PRN Allergies CETIRIZINE HCL 10 MG ORAL TABLET 1395860 CETIRIZINE HCL Inactiv e TUSSIONEX PENNKINETIC ER 10-8 MG/5ML ORAL SUSPENSION E XTENDED RELEASE 5ml po q12hr PRN Cough TUSSIONEX PENNKINETI C ER 10-8 MG/5ML ORAL SUSPENSION EXTENDED RELEASE HYDROCOD POLST-CHLORPHEN POLST I nactive NEXPLANON IMPLANT right arm subcutaneously NEXPLANON IMPLANT ETONOGESTREL IMPL Inactive PROTONIX 40 MG ORAL TABLET DELAYED RELEASE 1 po q a.m. PROTONIX 40 MG ORAL TABLET DELAYED RELEASE 656890 PANTOPRAZOLE SODI UM Inactive CHERATUSSIN AC 100-10 MG/5ML ORAL SYRUP 1 tsp by mouth every 4 hours as needed for cough CHERATUSSIN AC 100-10 MG/5ML ORAL SYRUP 9 45327 GUAIFENESIN-CODEINE Inactive GUAIFENESIN DM 400-20 MG ORAL [...] tid K EFLEX 500 MG ORAL CAPSULE 695280 CEPHALEXIN Inactive DIFLUCAN 100 MG ORAL TABLET 1 tablet by mouth daily, R EPEAT 2ND DOSE IN 7 DAYS IF STILL SYMPTOMATIC DIFLUCAN 100 MG ORAL TABLET 62909 8 FLUCONAZOLE Inactive PROTONIX 40 MG ORAL TABLET DELAYED RELEASE 1 pill by m outh daily, for acid reflux PROTONIX 40 MG ORAL TABLET DELAYED RELEAS E 619541 PANTOPRAZOLE SODIUM Inactive ALPRAZOLAM 0.25 MG ORAL TABLET 1 tablet by mouth twice a day as needed for stress/anxiety ALPRAZOLAM 0.25 MG ORAL TABLET 006096 ALPRAZOLAM Inactive ESCITALOPRAM OXALATE 10 MG ORAL TABLET take 1 tab po qhs for mod ESCITALOPRAM OXALATE 10 MG ORAL TABLET 219456 ESCITALOP JO OXALATE Inactive AMOXICILLIN 500 MG ORAL TABLET take 1 tab po TID 08/05 AMOXICILLIN 500 MG ORAL TABLET 753271 AMOXICILLIN Inactive AMOXICILLIN 500 MG ORAL CAPSULE 1 tab by mouth 3 times daily 201 11/24/09 AMOXICILLIN 500 MG ORAL CAPSULE 767482 AMOXICILLIN Inactive ZITHROMAX 250 MG ORAL TABLET 2 po today, then 1 po q days 2-5 20 09/23/25 ZITHROMAX 250 MG ORAL TABLET 873662 AZITHROMYCIN [place] ctive ZITHROMAX 250 MG ORAL TABLET 2 po today, then 1 po q days 2-5 20 10/03/08 ZITHROMAX 250 MG ORAL TABLET 432519 AZITHROMYCIN [place] ctive AZITHROMYCIN 500 MG ORAL TABLET 1 PO q day x 6 days 20 03/02/23 AZITHROMYCIN 500 MG ORAL TABLET 6910178 AZITHROMYCIN Inactive BACTRIM 400-80 MG ORAL TABLET take one po BID BACTRIM 400- 80 MG ORAL TABLET 249153 SULFAMETHOXAZOLE-TRIMETHOPRIM Inactive AZITHROMYCIN 250 MG ORAL TABLET 2 po qd x 1 day, then 1 po q d x 4 days AZITHROMYCIN 250 MG ORAL TABLET 751700 AZITHROMY ALLISON Inactive PREDNISONE 20 MG ORAL TABLET 2 tabs daily for 3 days, 1 tab daily for 3 days, 1/2 tab daily for 2 days PREDNISONE 20 MG ORAL T ABLET 438493 PREDNISONE Inactive ZITHROMAX 250 MG ORAL TABLET 2 po today, then 1 po q days 2-5 20 06/08/16 ZITHROMAX 250 MG ORAL TABLET 677603 AZITHROMYCIN [place] ctive FLAGYL 500 MG ORAL TABLET 1 tablet by mouth two times daily 2014 FLAGYL 500 MG ORAL TABLET 312803 METRONIDAZOLE Inacti ve AUGMENTIN 875-125 MG ORAL TABLET 1 tab by mouth twice daily with food AUGMENTIN 875-125 MG ORAL TABLET 572819 AMOXICIL ELSA-POT CLAVULANATE Inactive NAPROXEN 500 MG ORAL TABLET one tab PO BID NAPROXEN 500 MG ORAL TABLET 497018 NAPROXEN Inactive PREDNISONE 20 MG ORAL TABLET 2 tabs daily for 3 days, 1 tab daily for 3 days, 1/2 tab daily for 2 days PREDNISONE 20 MG ORAL T ABLET 917711 PREDNISONE Inactive AZITHROMYCIN 250 MG ORAL TABLET 2 po qd x 1 day, then 1 po q d x 4 days AZITHROMYCIN 250 MG ORAL TABLET 100782 AZITHROMY ALLISON Inactive PREDNISONE 20 MG ORAL TABLET 2 tabs daily for 3 days, 1 tab daily for 3 days, 1/2 tab daily for 2 days PREDNISONE 20 MG ORAL T ABLET 782045 PREDNISONE Inactive ZITHROMAX Z-EMIL 250 MG ORAL TABLET 2 today, then 1 daily for 4 d ays ZITHROMAX Z-EMIL 250 MG ORAL TABLET 254957 AZITHROMYCIN Inactive CEFDINIR 300 MG ORAL CAPSULE 1 po BID x 10 days 12/18 CEFDINIR 300 MG ORAL CAPSULE 254085 CEFDINIR Inactive CEFDINIR 300 MG ORAL CAPSULE 1 po BID x 10 days CEFDINIR 300 MG ORAL CAPSULE 411785 CEFDINIR Inactive PREDNISONE 20 MG ORAL TABLET 2 tabs daily for 3 days, 1 tab daily for 3 days, 1/2 tab daily for 2 days PREDNISONE 20 MG ORAL T ABLET 026846 PREDNISONE Inactive BACTRIM DS 800-160 MG ORAL TABLET 1 tab by mouth twice daily 201 05/02/30 BACTRIM DS 800-160 MG ORAL TABLET 590920 TRIMETHOPRIM-SULFAMETHOXAZOLE Inactive ZITHROMAX Z-EMIL 250 MG ORAL TABLET 2 today, then 1 daily for 4 d ays ZITHROMAX Z-EMIL 250 MG ORAL TABLET 278849 AZITHROMYCIN Inactive TAMIFLU 75 MG ORAL CAPSULE 1 po BID x 5 days 0 TAMIFLU 75 MG ORAL CAPSULE 654536 OSELTAMIVIR PHOSPHATE Inactive CEFDINIR 300 MG ORAL CAPSULE 1 po BID x 10 days 01/03 CEFDINIR 300 MG ORAL CAPSULE 620773 CEFDINIR Inactive ZITHROMAX Z-EMIL 250 MG TABS Take two tablets today and then 1 tablet daily for 4 days ZITHROMAX Z-EMIL 250 MG TABS 427519 AZITHROM YCIN Inactive AMOXICILLIN 875 MG ORAL TABLET 1 tab by mouth twice daily AMOXICILLIN 875 MG ORAL TABLET 151768 AMOXICILLIN Inactive Advance Directives Directive Description Start [...] [lb_av] Weight Measure d blood pressure, diastolic 83 mm[Hg] BP kennedy blood pressure, systolic 118 mm[Hg] BP sys height E&M 66 [in_us] Bdy height pulse rate E&M 80 /min Heart rate temperature E&M 97.7 [degF] Body temp erature weight E&M 173 [...] 11 .0-15.0 platelet count 280 THOUSAND/UL 10*3/mm3 775-883 8738/02/18 mean platelet volume 11.6 fL 7.5-12.5 Lab [...] CBC W/DIFF - Hematology leukocyte count, blood 7.6 10^3/MM^3 10*3/mm3 4.6-10.2 [...] mg/dL Encounters Code Encounter Date Provider Facility CPT-42632 Level 4 Est. Patient 16:18:17 TRACTOR TRAILER OPERATOR yMrna maldonado MD [facility] CPT-22718 Level 4 Est. Patient 16:39:44 TRACTOR TRAILER OPERATOR Jose Zhong MD [facility] CPT-88671 [id number] Vst-Est Level IV 13:45:[address] Tali Devi PA-C [facility] CPT-62103 [id number] Vst-Est Level III 09:41:31 CDT Arie Casper MD [facility] CPT-20144 [id number] Vst-Est Level III 18:20:11 CDT Me lobito Russ [facility] CPT-96249 [id number] Vst-Est Level III 17:21:41 CDT Me lobito Russ [facility]-56054 [id number]-Psu Vst-Est Level IV 13:30:22 C DT Arie Casper MD [facility] CPT-48684 Level 4 Est. Patient 13:05:26 CDT Myrnakhadra maldonado MD [facility]-98424 57785-Pvc Vst-Est Level IV 20:50:21 C DT Arie Casper MD [facility] CPT-50653 Level 3 Est. Patient 11:49:34 TRACTOR TRAILER OPERATOR Jessica boyd [facility] CPT-71216 Level 3 Est. Patient 14:55:50 TRACTOR TRAILER OPERATOR Jose Zhong MD [facility] CPT-35345 Level 3 Est. Patient 10:21:41 TRACTOR TRAILER OPERATOR Arie mcqueen MD [facility] CPT-41364 Level 3 Est. Patient 11:35:15 TRACTOR TRAILER OPERATOR Arie mcqueen MD [facility] CPT-81319 Level 3 Est. Patient 15:40:28 CDT Brii Are [facility] CPT-07687 Level 3 Est. Patient 16:40:36 CDT Arie mcqueen MD [facility] CPT-63251 Level 4 Est. Patient 15:29:22 TRACTOR TRAILER OPERATOR Arie mcqueen MD [facility] CPT-43071 Level 3 Est. Patient 15:18:16 TRACTOR TRAILER OPERATOR Jono black DO [facility] CPT-39418 Level 4 Est. Patient 12:08:40 TRACTOR TRAILER OPERATOR Brii Are ll [facility] CPT-75366 Level 3 Est. Patient 09:24:42 CDT Brii Are [facility] CPT-53754 Level 3 Est. Patient 09:12:56 CDT Arie mcqueen MD [facility] CPT-09345 Level 3 Est. Patient 16:40:54 CDT Jose Zhong MD [facility] CPT-08627 Level 2 Est. Patient 13:01:13 CDT Brii Are ll [facility] CPT-30952 Level 3 Est. Patient 11:55:30 TRACTOR TRAILER OPERATOR Jono black DO [facility] CPT-99943 Level 3 Est. Patient 09:52:36 TRACTOR TRAILER OPERATOR Brii Are ll [facility] CPT-41376 Level 3 Est. Patient 16:25:33 TRACTOR TRAILER OPERATOR Rich Rosales MD [facility]-39033 Level 3 Est. Patient 20:33:55 CDT Arie mcqueen MD [facility]-18525 Level 3 Est. Patient 14:18:20 CDT Rich Rosales MD [facility] CPT-21734 Level 4 Est. Patient 09:34:31 CDT Arie mcqueen MD [facility] CPT-35049 Level 3 Est. Patient 09:08:55 TRACTOR TRAILER OPERATOR Liliana vincent MD [facility]-61066 Level 3 Est. Patient 16:44:07 TRACTOR TRAILER OPERATOR Arie mcqueen MD [facility] CPT-10302 Level 3 Est. Patient 10:44:27 CDT Arie mcqueen MD [facility]-36808 Level 3 Est. Patient 08:55:41 CDT Jose Zhong MD [facility]-62980 Level 3 Est. Patient 18:37:31 CDT Liliana vincent MD PhD [facility]-03805 Level 3 Est. Patient 14:28:23 CDT Abelardo HERNANDEZ [facility] CPT-39722 Level 3 Est. Patient 15:18:13 TRACTOR TRAILER OPERATOR Arie mcqueen MD [facility] CPT-95882 Level 3 Est. Patient 10:11:29 TRACTOR TRAILER OPERATOR Arie mcqueen MD [facility] CPT-43627 Level 3 Est. Patient 10:55:57 TRACTOR TRAILER OPERATOR Jono black DO [facility] CPT-64872 Level 3 Est. Patient 17:29:05 CDT Arie mcqueen MD [facility] Procedures Code Procedure Name Date Entry Date Standard Desc ription CPT-68641 Sono OB transvag XRAY USE ONLY 17:12:53 CS T CPT-12038 Sono OB transvag XRAY USE ONLY 17:11:12 CS T CPT-25767 UHCG Urine - MARC ONLY 12:13:59 TRACTOR TRAILER OPERATOR 12/11 CPT-09728 Spec Collection and Handling Fee 12:13:[address] CPT-08633 Visit 12:13:59 TRACTOR TRAILER OPERATOR CPT-32354 First Vx - Ix admin via ID I M or jet injects without counseling by physician 13:00:15 TRACTOR TRAILER OPERATOR CPT-31696 Flulaval Intramuscular Injectable 13:00:15 TRACTOR TRAILER OPERATOR CPT-08109 Urine Dip (Floor Use Only) 12:20:20 TRACTOR TRAILER OPERATOR 201 06/03/24 CPT-28319 Sono Soft Tissue Head and Neck - XRAY US E ONLY 17:10:14 CDT CPT-67247 Ear Wash with irrigation 17:21:41 CDT 07/04 CPT-09779 Nexplanon Removal 15:40:28 CDT CPT-53986 Sono transvag pelvis non OB uterus ovari es cervix - XRAY USE ONLY 08:58:14 TRACTOR TRAILER OPERATOR CPT-90497 UA w micro - LAB USE ONLY 16:04:56 TRACTOR TRAILER OPERATOR 2015 CPT-90509 Wet Prep/GEN - LAB USE ONLY 16:04:56 TRACTOR TRAILER OPERATOR 20 08/10/29 CPT-62932 First Vx - Ix admin via ID I M or jet injects without counseling by physician 16:57:10 CDT CPT-85024 Fluzone Preservative Free Intramuscular Suspension 16:57:10 CDT CPT-J0696 Rocephin 1000 mg (Ceftriaxone) 11:49:23 CDT CPT-J1040 Depo Medrol 80 mg (Methyl Prednisolone A cetate) 11:49:23 CDT CPT-J1100 Decadron 8mg (Dexamethasone) 11:49:23 CDT 2 CPT-20009 Abx/Therapy Injection 11:49:23 CDT CPT-73414 Abx/Therapy Injection 11:49:23 CDT CPT-96061 Abd compl w upright 09:07:26 TRACTOR TRAILER OPERATOR CPT-32959 Ear Wash 16:12:47 TRACTOR TRAILER OPERATOR CPT-OV Office Visit 11:12:01 CDT CPT-OV Office Visit 15:30:23 CDT CPT-30347 Sono pelvis non OB uterus ovaries cervix 15:50:44 CDT CPT-98820 Hand comp min 3V 16:42:32 CDT CPT-14376 Abd compl w upright 12:17:01 CDT CPT-04187 Nexplanon Placement 15:07:39 TRACTOR TRAILER OPERATOR CPT-18688 Removal of IUD 15:07:39 TRACTOR TRAILER OPERATOR CPT-18238 TB Tubersol 12:09:32 CDT CPT-08224 TB Tubersol 13:55:43 CDT
--- OUTSIDE RECORDS SUMMARY | 2020-03-03 06:48 | XMS REPORT | Clinical Summary ---
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 Need for prophylactic vaccin ation and inoculation [...] multiple sites Vaginal pruritus 698.1 Resolved Jose Zohng MD Pruritus of genital organs DYSPAREUNIA Resolved [...] removal ICD-V25.42 Inactive Liliana Estrada MD PhD ACUTE FRONTAL SINUSITIS ICD-461.1 Inactive Ronnie Estrada MD PhD Diarrhea ICD-787.91 Inactive Jose [...] lower quadrant ICD-789.03 Inactive Jose Zhong MD Sinusitis - acute [...] Zhong MD Cerumen impaction, bilateral ICD-380.4 Inactiv jonathan Zhong MD Tonsillar enlargement ICD-474.11 Inactive Gabriella [...] DYSPAREUNIA Inactive Jose Zhong MD 20 09/01/01 Urinary frequency ICD-788.41 Inactive Jose Zhong MD Supervision high risk , third trimester ICD-V23.9 Inactive Myrna Roberto MD Maternal care for low transverse scar from previous delivery Inactive Myrna Roberto MD Medication List Medication Instructions Start Date Stop Date Generic Name NDC Status Provider Patient Instruction PYRIDOXINE HCL 25 MG ORAL TABLET one tab PO 3-4 times per day 12/11 PYRIDOXINE HCL 51793648030 Active Myrna Roberto MD Active UNISOM SLEEPTABS 25 MG ORAL TABLET one tab PO qhs DOXYLAMINE SUCCINATE (SLEEP) 20643251223 Active Myrna Roberto MD Active TYLENOL 325 MG ORAL CAPSULE PRN ACETAMINOPHEN 000 53369948 Active Brii Pacheco Active ESCITALOPRAM OXALATE 10 MG ORAL TABLET take 1 tab po qhs for mod ESCITALOPRAM OXALATE 24823140650 No Longer Active Brii Pacheco Active ALPRAZOLAM 0.25 MG ORAL TABLET 1 tablet by mouth twice a day as needed for stress/anxiety ALPRAZOLAM 41547665005 No Longer Active Brii Pacheco Active PROTONIX 40 MG ORAL TABLET DELAYED RELEASE 1 pill by m outh daily, for acid reflux PANTOPRAZOLE SODIUM 33537737741 No Longer Activ e Brii Pacheco Active DIFLUCAN 100 MG ORAL TABLET 1 tablet by mouth daily, R EPEAT 2ND DOSE IN 7 DAYS IF STILL SYMPTOMATIC FLUCONAZOLE 55065582472 No Long er Active Nilam Raida Active KEFLEX 500 MG ORAL CAPSULE 1 po tid CEPHALEXI N 16164571043 No Longer Active Tali Devi PA-C Active CONCEPT DHA 53.5-38-1 MG ORAL CAPSULE 1 tablet daily [id number]-[id number]-OMEGA 3 42472607473 Active Oxana Souza 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 AMOXICILLIN 875 MG ORAL TABLET 1 tab by mouth twice daily 1 AMOXICILLIN 44742101732 No Longer Active Brii Russ APRN Active TUSSIONEX PENNKINETIC ER 10-8 MG/5ML ORAL SUSPENSION E XTENDED RELEASE 5ml po q12hr PRN Cough HYDROCOD POLST-CHLORPHEN POLST 5 4389000404 No Longer Active Myrna Roberto MD Active ZITHROMAX Z-EMIL 250 MG TABS Take two tablets today and then 1 tablet daily for 4 days AZITHROMYCIN 63851512049 No Longer Active Flaco Rosales MD Active GUAIFENESIN DM 400-20 MG ORAL TABLET 1 pill by mouth t wice daily, if needed for cough DEXTROMETHORPHAN-GUAIFENESIN 95085702575 No Longer Active Rich Rosales MD Active CEFDINIR 300 MG ORAL CAPSULE 1 po BID x 10 days CEFDINIR 63554836508 No Longer Active Jessica Heaton APRN Active CHERATUSSIN AC 100-10 MG/5ML ORAL SYRUP 1 tsp by mouth every 4 hours as needed for cough GUAIFENESIN-CODEINE 77086358828 No Longe r Active Waynellina Florina CABRERA Active TAMIFLU 75 MG ORAL CAPSULE 1 po BID x 5 days 0 OSELTAMIVIR PHOSPHATE 17623347433 No Longer Active Jose Zhong MD Activ e ZITHROMAX Z-EMIL 250 MG ORAL TABLET 2 today, then 1 daily for 4 d ays AZITHROMYCIN 74394200612 No Longer Active Arie Casper MD Active PROTONIX 40 MG ORAL TABLET DELAYED RELEASE 1 po q a.m. PANTOPRAZOLE SODIUM 59539342895 No Longer Active Arie Casper MD Active BACTRIM DS 800-160 MG ORAL TABLET 1 tab by mouth twice daily 201 05/02/30 TRIMETHOPRIM-SULFAMETHOXAZOLE 69420939129 No Longer Active R KELLIE Sandoval Active NEXPLANON IMPLANT right arm subcutaneously ETONOGESTREL IMPL 17516849458 No Longer Active Brii Russ APRN Active TUSSIONEX PENNKINETIC ER 10-8 MG/5ML ORAL SUSPENSION E XTENDED RELEASE 5ml po q12hr PRN Cough HYDROCOD POLST-CHLORPHEN POLST 5 4326246473 No Longer Active Brii Russ APRN Active CETIRIZINE HCL 10 MG ORAL TABLET 1 po qd PRN Allergies CETIRIZINE HCL 47472939259 No Longer Active Brii Russ APRN Activ e PREDNISONE 20 MG ORAL TABLET 2 tabs daily for 3 days, 1 tab daily for 3 days, 1/2 tab daily for 2 days PREDNISONE 67384392469 No Longer Active Arie Casper MD Active LOMOTIL 2.5-0.025 MG ORAL TABLET 1 tab po four times a day as needed for diarrhea DIPHENOXYLATE-ATROPINE 26465593550 No Lo nger Active Arie Casper MD Active ZOLOFT 50 MG ORAL TABLET 1 tablet by mouth daily 12/08 SERTRALINE HCL 56820006010 No Longer Active Arie Casper MD Ac tive NAPROXEN 500 MG ORAL TABLET Take 1 tab BID NAPR OXEN 73360052727 No Longer Active Arie Casper MD Active CEFDINIR 300 MG ORAL CAPSULE 1 po BID x 10 days CEFDINIR 35515494259 No Longer Active Brii Russ APRN Active PREDNISONE 20 MG ORAL TABLET 1 tablet daily for airway inflammat ion PREDNISONE 57224036493 No Longer Active Brii Russ APRN A ctive CEFDINIR 300 MG ORAL CAPSULE 1 po BID x 10 days CEFDINIR 73725622692 No Longer Active Jono Gagnon DO Active FLONASE 50 MCG/ACT NASAL SUSPENSION 1 spray each nostr il twice daily for allergies and runny nose until gone FLUT ICASONE PROPIONATE 00051327429 No Longer Active Jono Gagnon DO Active ALPRAZOLAM 0.25 MG ORAL TABLET 1 tablet by mouth every 8 hours as needed for stress ALPRAZOLAM 39903599401 No Longer Active Jono Gagnon DO Active ZITHROMAX Z-EMIL 250 MG ORAL TABLET 2 today, then 1 daily for 4 d ays AZITHROMYCIN 63263729295 No Longer Active Arie Casper MD Active PREDNISONE 20 MG ORAL TABLET 2 tabs daily for 3 days, 1 tab daily for 3 days, 1/2 tab daily for 2 days PREDNISONE 63171182655 No Longer Active Brii Petrona PAREKHN Active PREDNISONE 20 MG ORAL TABLET 1 tablet twice daily for 2 days, then 1 tablet once daily for 2 days PREDNISONE 87314400411 No Longer Active Brii Russ APRN Active PROMETHAZINE HCL 12.5 MG ORAL TABLET 1 tablet by mouth every 6 hours as needed for nausea/vomiting PROMETHAZINE HCL 28159531242 No L onger Active Jono Gagnon DO Active CITRATE OF MAGNESIA ORAL SOLUTION 1 bottle today for constipatio n MAGNESIUM CITRATE 65625601361 No Longer Active Jono Gagnon DO Active ZOFRAN 4 MG ORAL TABLET 1 TAB PO Q 6 HRS PRN NAUSEA 07/10/15 ONDANSETRON HCL 93180586826 No Longer Active Brii Russ APRN Acti ve LOMOTIL 2.5-0.025 MG ORAL TABLET 1 to 2 four times a day as needed for diarrhea DIPHENOXYLATE-ATROPINE 53786213487 No Longer Active January Russ APRN Active AMOXICILLIN 500 MG ORAL TABLET 2 tabs twice a day for 10 days 20 07/09/11 AMOXICILLIN 81861281452 No Longer Active Brii Russ APRN Active CYCLOBENZAPRINE HCL 10 MG ORAL TABLET 1/2 - 1 tablet b y mouth three times daily as needed for muscle spasm/pain CYCLOBENZAPRINE HCL 97896831630 No Longer Active Arie Casper MD Active LOMOTIL 2.5-0.025 MG ORAL TABLET 1 to 2 four times a day as needed for diarrhea DIPHENOXYLATE-ATROPINE 32809367154 No Longer Active D freddy Casper MD Active MACROBID 100 MG ORAL CAPSULE 1 cap by mouth twice daily NITROFURANTOIN MONOHYD MACRO 88488274149 No Longer Active Arie Casper MD Active ZYRTEC ALLERGY 10 MG ORAL CAPSULE 1 po qd CE TIRIZINE HCL 03368933308 No Longer Active Arie Casper MD Active AZITHROMYCIN 250 MG ORAL TABLET 2 po qd x 1 day, then 1 po q d x 4 days AZITHROMYCIN 14337514500 No Longer Active Jillarlen salgado 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 PREDNISONE 20 MG ORAL TABLET 2 tabs daily for 3 days, 1 tab daily for 3 days, 1/2 tab daily for 2 days PREDNISONE 22956857946 No Longer Active Waynellarlen Heaton 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 Active PROMETHAZINE HCL 25 MG ORAL TABLET 1 four times a day as nee ded for vomiting PROMETHAZINE HCL 97329065798 No Longer Active Myrna Roberto MD Active BACTRIM DS 800-160 MG ORAL TABLET 1 twice a day 05/30 SULFAMETHOXAZOLE-TRIMETHOPRIM 22308513593 No Longer Active Myrna Roberto MD Active VICKS DAYQUIL SEVERE COLD/FLU TABLET 1 tab every 6 hours prn 201 02/22/17 [id number]-CY-APAP TABS 03521055398 No Longer Active Chris Roberto MD Active GUAIFENESIN-CODEINE 100-10 MG/5ML ORAL SYRUP 2 tsp every 6 hours prn GUAIFENESIN-CODEINE 56464120854 No Longer Active Myrna Roberto MD Active NAPROXEN 500 MG ORAL TABLET one tab PO BID NAPR OXEN 65832986207 No Longer Active Myrna Roberto MD Active AUGMENTIN 875-125 MG ORAL TABLET 1 tab by mouth twice daily with food AMOXICILLIN-POT CLAVULANATE 72694135574 No Longer Act zaid Liliana Estrada MD PhD Active AMOXICILLIN 500 MG ORAL CAPSULE 1 tab by mouth 3 times daily 201 02/21/05 AMOXICILLIN 14362559076 No Longer Active Liliana Estrada MD PhD Active TESSALON PERLES 100 MG ORAL CAPSULE 1 tablet by mouth 3 times da cory BENZONATATE 04252347389 No Longer Active Liliana Estrada MD PhD Active FLAGYL 500 MG ORAL TABLET 1 tablet by mouth two times daily 2014 METRONIDAZOLE 09096401541 No Longer Active Nilam Plattkatie Ac tive ZITHROMAX 250 MG ORAL TABLET 2 po today, then 1 po q days 2-5 20 06/08/16 AZITHROMYCIN 89167849396 No Longer Active Arie Casper MD Active VITAMINS 0.8 MG ORAL TABLET take 1 tab po qday [id number] 18398767888 No Longer Active Arie Casper MD Active IBUPROFEN 800 MG ORAL TABLET take one po Q 8 hours 201 02/01/16 IBUPROFEN 27400441234 No Longer Active Arie Casper MD Acti ve [facility] TUSSIN COUGH/COLD CF 5-10-100 MG/5ML ORAL LIQUID 2 teasp oons every 4 hours [id number] 80210123864 No Longer Active Blaine Casper MD Active COMTREX COLD/COUGH DAY/NITE MS 5-2-10-325 MG ORAL 2 caps deja ry 4 hours [id number] 69701839926 No Longer Active Da aleksandra Casper MD Active CHLORASEPTIC MAX SORE THROAT 15-10 MG MOUTH/THROAT LOZENGE 1 every 2 hours prn BENZOCAINE-MENTHOL 50826070172 No Longer Active Arie Casper MD Active PREDNISONE 20 MG ORAL TABLET 2 tabs daily for 3 days, 1 tab daily for 3 days, 1/2 tab daily for 2 days PREDNISONE 39186191685 No Longer Active Jose Zhong MD Active AZITHROMYCIN 250 MG ORAL TABLET 2 po qd x 1 day, then 1 po q d x 4 days AZITHROMYCIN 21298344460 No Longer Active Jose Mcwilliams MD Active ZOFRAN ODT 4 MG ORAL TABLET DISINTEGRATING 1 po q6hr PRN Nausea ONDANSETRON 24192452848 No Longer Active Rich Rosales MD Active ZOFRAN 4 MG ORAL TABLET 1 tablet every 4 hours ONDANSETRON HCL 91799199886 No Longer Active Rich Rosales MD Activ e MUCINEX 600 MG ORAL TABLET EXTENDED RELEASE 12 HOUR Ta ke 1-2 tablets every 12 hours GUAIFENESIN 45524232728 No Longer Active Rich Rosales MD Active BACTRIM 400-80 MG ORAL TABLET take one po BID SULFAMETHOXAZOLE-TRIMETHOPRIM 96744086445 No Longer Active Abelardo HERNANDEZ Active AZITHROMYCIN 500 MG ORAL TABLET 1 PO q day x 6 days 20 03/02/23 AZITHROMYCIN 62516922742 No Longer Active Tin HERNANDEZ Activ e ZITHROMAX 250 MG ORAL TABLET 2 po today, then 1 po q days 2-5 20 10/03/08 AZITHROMYCIN 39814552331 No Longer Active Arie Casper MD Active ZITHROMAX 250 MG ORAL TABLET 2 po today, then 1 po q days 2-5 20 09/23/25 AZITHROMYCIN 59812181470 No Longer Active Arie Casper MD Active AMOXICILLIN 500 MG ORAL CAPSULE 1 tab by mouth 3 times daily 201 11/24/09 AMOXICILLIN 21066396426 No Longer Active Arie Casper MD Active BACTRIM DS 800-160 MG ORAL TABLET 1 tab by mouth twice daily 201 11/03/14 TRIMETHOPRIM-SULFAMETHOXAZOLE 08408416314 No Longer Active Fozia Casper MD Active AMOXICILLIN 500 MG ORAL TABLET take 1 tab po TID 08/05 AMOXICILLIN 20074201450 No Longer Active Arie Casper MD Acti [...] 4 hours ZOFRAN 4 MG ORAL TABLET 209596 ONDANSETRON HCL Inactive ZOFRAN ODT 4 MG [...] COLD/COUGH DAY/NITE MS 5-2-10-325 MG ORA L [id number] Inactive [facility] TUSSIN COUGH/COLD CF 5-10-100 MG/5ML ORAL LIQUID 2 teasp oons every 4 hours [facility] TUSSIN COUGH/COLD CF 5-10-100 MG/5ML ORAL LI QUID [id number] Inactive IBUPROFEN 800 MG ORAL TABLET take one po Q 8 hours 201 02/01/16 IBUPROFEN 800 MG ORAL TABLET IBUPROFEN Inactive VITAMINS 0.8 MG ORAL TABLET take 1 tab po qday VITAMINS 0.8 MG ORAL TABLET [id number] E-FA Inactive TESSALON PERLES 100 MG ORAL CAPSULE 1 tablet by mouth 3 times da cory TESSALON PERLES 100 MG ORAL CAPSULE 569181 BENZONATATE Inactive AMOXICILLIN 500 MG ORAL CAPSULE 1 tab by mouth 3 times daily 201 02/21/05 AMOXICILLIN 500 MG ORAL CAPSULE 300450 AMOXICILLIN Inactive GUAIFENESIN-CODEINE 100-10 MG/5ML ORAL SYRUP 2 tsp every 6 hours prn GUAIFENESIN-CODEINE 100-10 MG/5ML ORAL SYRUP 343404 GUAIFENESIN-CODEINE Inactive VICKS DAYQUIL SEVERE COLD/FLU TABLET 1 tab every 6 hours prn 201 02/22/17 VICKS DAYQUIL SEVERE COLD/FLU TABLET PHENYLEPHRI [id number] TABS Inactive BACTRIM DS 800-160 MG ORAL TABLET 1 twice a day 05/30 BACTRIM DS 800-160 MG ORAL TABLET 120637 SULFAMETHOXAZOLE-TRIMETHOPRIM Inactiv e PROMETHAZINE HCL 25 MG ORAL TABLET 1 four times a day as nee ded for vomiting PROMETHAZINE HCL 25 MG ORAL TABLET 538758 PROMETHAZINE HCL Inactive ZYRTEC ALLERGY 10 MG ORAL CAPSULE 1 po qd ZYRTEC ALLERGY 10 MG ORAL CAPSULE CETIRIZINE HCL Inactive MACROBID 100 MG ORAL CAPSULE 1 cap by mouth twice daily MACROBID 100 MG ORAL CAPSULE 8725557 NITROFURANTOIN MONOHYD MACRO In active LOMOTIL 2.5-0.025 MG ORAL TABLET 1 to 2 four times a day as needed for diarrhea LOMOTIL 2.5-0.025 MG ORAL TABLET 0237856 DIPHENOXYLATE-ATROPINE Inactive CYCLOBENZAPRINE HCL 10 MG ORAL TABLET 1/2 - 1 tablet b y mouth three times daily as needed for muscle spasm/pain CYCLOBEN ZAPRINE HCL 10 MG ORAL TABLET 250647 CYCLOBENZAPRINE HCL Inactive AMOXICILLIN 500 MG ORAL TABLET 2 tabs twice a day for 10 days 20 07/09/11 AMOXICILLIN 500 MG ORAL TABLET 120211 AMOXICILLIN I nactive LOMOTIL 2.5-0.025 MG ORAL TABLET 1 to 2 four times a day as needed for diarrhea LOMOTIL 2.5-0.025 MG ORAL TABLET 9035448 DIPHENOXYLATE-ATROPINE Inactive ZOFRAN 4 MG ORAL TABLET 1 TAB PO Q 6 HRS PRN NAUSEA 07/10/15 ZOFRAN 4 MG ORAL TABLET 034679 ONDANSETRON HCL Inactive CITRATE OF MAGNESIA ORAL SOLUTION 1 bottle today for constipatio n CITRATE OF MAGNESIA ORAL SOLUTION 2337072 MAGNESIUM CITR ATE Inactive PROMETHAZINE HCL 12.5 MG ORAL TABLET 1 tablet by mouth every 6 hours as needed for nausea/vomiting PROMETHAZINE HCL 12.5 MG ORA L TABLET 166684 PROMETHAZINE HCL Inactive PREDNISONE 20 MG ORAL TABLET 1 tablet twice daily for 2 days, then 1 tablet once daily for 2 days PREDNISONE 20 MG ORAL TABLET 067797 PREDNISONE Inactive ALPRAZOLAM 0.25 MG ORAL TABLET 1 tablet by mouth every 8 hours as needed for stress ALPRAZOLAM 0.25 MG ORAL TABLET 897164 ALPRA ZOLAM Inactive FLONASE 50 MCG/ACT NASAL SUSPENSION 1 spray each nostr il twice daily for allergies and runny nose until gone FLON ASE 50 MCG/ACT NASAL SUSPENSION FLUTICASONE PROPIONATE Inactive PREDNISONE 20 MG ORAL TABLET 1 tablet daily for airway inflammat ion PREDNISONE 20 MG ORAL TABLET 334017 PREDNISONE [place] ctive NAPROXEN 500 MG ORAL TABLET Take 1 tab BID NAPROXEN 500 MG ORAL TABLET 357260 NAPROXEN Inactive ZOLOFT 50 MG ORAL TABLET 1 tablet by mouth daily 12/08 ZOLOFT 50 MG ORAL TABLET 134579 SERTRALINE HCL Inactive LOMOTIL 2.5-0.025 MG ORAL TABLET 1 tab po four times a day as needed for diarrhea LOMOTIL 2.5-0.025 MG ORAL TABLET 1382509 DIPHENOXYLATE-ATROPINE Inactive CETIRIZINE HCL 10 MG ORAL TABLET 1 po qd PRN Allergies CETIRIZINE HCL 10 MG ORAL TABLET 9709703 CETIRIZINE HCL Inactiv e TUSSIONEX PENNKINETIC ER 10-8 MG/5ML ORAL SUSPENSION E XTENDED RELEASE 5ml po q12hr PRN Cough TUSSIONEX PENNKINETI C ER 10-8 MG/5ML ORAL SUSPENSION EXTENDED RELEASE HYDROCOD POLST-CHLORPHEN POLST I nactive NEXPLANON IMPLANT right arm subcutaneously NEXPLANON IMPLANT ETONOGESTREL IMPL Inactive PROTONIX 40 MG ORAL TABLET DELAYED RELEASE 1 po q a.m. PROTONIX 40 MG ORAL TABLET DELAYED RELEASE 743063 PANTOPRAZOLE SODI UM Inactive CHERATUSSIN AC 100-10 MG/5ML ORAL SYRUP 1 tsp by mouth every 4 hours as needed for cough CHERATUSSIN AC 100-10 MG/5ML ORAL SYRUP 9 07099 GUAIFENESIN-CODEINE Inactive GUAIFENESIN DM 400-20 MG ORAL [...] tid K EFLEX 500 MG ORAL CAPSULE 703971 CEPHALEXIN Inactive DIFLUCAN 100 MG ORAL TABLET 1 tablet by mouth daily, R EPEAT 2ND DOSE IN 7 DAYS IF STILL SYMPTOMATIC DIFLUCAN 100 MG ORAL TABLET 04391 8 FLUCONAZOLE Inactive PROTONIX 40 MG ORAL TABLET DELAYED RELEASE 1 pill by m outh daily, for acid reflux PROTONIX 40 MG ORAL TABLET DELAYED RELEAS E 418917 PANTOPRAZOLE SODIUM Inactive ALPRAZOLAM 0.25 MG ORAL TABLET 1 tablet by mouth twice a day as needed for stress/anxiety ALPRAZOLAM 0.25 MG ORAL TABLET 817966 ALPRAZOLAM Inactive ESCITALOPRAM OXALATE 10 MG ORAL TABLET take 1 tab po qhs for mod ESCITALOPRAM OXALATE 10 MG ORAL TABLET 872472 ESCITALOP JO OXALATE Inactive AMOXICILLIN 500 MG ORAL TABLET take 1 tab po TID 08/05 AMOXICILLIN 500 MG ORAL TABLET 476752 AMOXICILLIN Inactive AMOXICILLIN 500 MG ORAL CAPSULE 1 tab by mouth 3 times daily 201 11/24/09 AMOXICILLIN 500 MG ORAL CAPSULE 314797 AMOXICILLIN Inactive ZITHROMAX 250 MG ORAL TABLET 2 po today, then 1 po q days 2-5 20 09/23/25 ZITHROMAX 250 MG ORAL TABLET 613307 AZITHROMYCIN [place] ctive ZITHROMAX 250 MG ORAL TABLET 2 po today, then 1 po q days 2-5 20 10/03/08 ZITHROMAX 250 MG ORAL TABLET 937438 AZITHROMYCIN [place] ctive AZITHROMYCIN 500 MG ORAL TABLET 1 PO q day x 6 days 20 03/02/23 AZITHROMYCIN 500 MG ORAL TABLET 5238224 AZITHROMYCIN Inactive BACTRIM 400-80 MG ORAL TABLET take one po BID BACTRIM 400- 80 MG ORAL TABLET 399290 SULFAMETHOXAZOLE-TRIMETHOPRIM Inactive AZITHROMYCIN 250 MG ORAL TABLET 2 po qd x 1 day, then 1 po q d x 4 days AZITHROMYCIN 250 MG ORAL TABLET 924618 AZITHROMY ALLISON Inactive PREDNISONE 20 MG ORAL TABLET 2 tabs daily for 3 days, 1 tab daily for 3 days, 1/2 tab daily for 2 days PREDNISONE 20 MG ORAL T ABLET 930711 PREDNISONE Inactive ZITHROMAX 250 MG ORAL TABLET 2 po today, then 1 po q days 2-5 20 06/08/16 ZITHROMAX 250 MG ORAL TABLET 197046 AZITHROMYCIN [place] ctive FLAGYL 500 MG ORAL TABLET 1 tablet by mouth two times daily 2014 FLAGYL 500 MG ORAL TABLET 344916 METRONIDAZOLE Inacti ve AUGMENTIN 875-125 MG ORAL TABLET 1 tab by mouth twice daily with food AUGMENTIN 875-125 MG ORAL TABLET 773807 AMOXICIL ELSA-POT CLAVULANATE Inactive NAPROXEN 500 MG ORAL TABLET one tab PO BID NAPROXEN 500 MG ORAL TABLET 770483 NAPROXEN Inactive PREDNISONE 20 MG ORAL TABLET 2 tabs daily for 3 days, 1 tab daily for 3 days, 1/2 tab daily for 2 days PREDNISONE 20 MG ORAL T ABLET 194176 PREDNISONE Inactive AZITHROMYCIN 250 MG ORAL TABLET 2 po qd x 1 day, then 1 po q d x 4 days AZITHROMYCIN 250 MG ORAL TABLET 410750 AZITHROMY ALLISON Inactive PREDNISONE 20 MG ORAL TABLET 2 tabs daily for 3 days, 1 tab daily for 3 days, 1/2 tab daily for 2 days PREDNISONE 20 MG ORAL T ABLET 343631 PREDNISONE Inactive ZITHROMAX Z-EMIL 250 MG ORAL TABLET 2 today, then 1 daily for 4 d ays ZITHROMAX Z-EMIL 250 MG ORAL TABLET 547713 AZITHROMYCIN Inactive CEFDINIR 300 MG ORAL CAPSULE 1 po BID x 10 days 12/18 CEFDINIR 300 MG ORAL CAPSULE 380586 CEFDINIR Inactive CEFDINIR 300 MG ORAL CAPSULE 1 po BID x 10 days CEFDINIR 300 MG ORAL CAPSULE 009106 CEFDINIR Inactive PREDNISONE 20 MG ORAL TABLET 2 tabs daily for 3 days, 1 tab daily for 3 days, 1/2 tab daily for 2 days PREDNISONE 20 MG ORAL T ABLET 098332 PREDNISONE Inactive BACTRIM DS 800-160 MG ORAL TABLET 1 tab by mouth twice daily 201 05/02/30 BACTRIM DS 800-160 MG ORAL TABLET 846666 TRIMETHOPRIM-SULFAMETHOXAZOLE Inactive ZITHROMAX Z-EMIL 250 MG ORAL TABLET 2 today, then 1 daily for 4 d ays ZITHROMAX Z-EMIL 250 MG ORAL TABLET 105593 AZITHROMYCIN Inactive TAMIFLU 75 MG ORAL CAPSULE 1 po BID x 5 days 0 TAMIFLU 75 MG ORAL CAPSULE 178211 OSELTAMIVIR PHOSPHATE Inactive CEFDINIR 300 MG ORAL CAPSULE 1 po BID x 10 days 01/03 CEFDINIR 300 MG ORAL CAPSULE 301825 CEFDINIR Inactive ZITHROMAX Z-EMIL 250 MG TABS Take two tablets today and then 1 tablet daily for 4 days ZITHROMAX Z-EMIL 250 MG TABS 263157 AZITHROM YCIN Inactive AMOXICILLIN 875 MG ORAL TABLET 1 tab by mouth twice daily AMOXICILLIN 875 MG ORAL TABLET 858253 AMOXICILLIN Inactive Advance Directives Directive Description Start [...] #2 Historical ez ovirus vaccine, unspecified formulation oral polio vaccine (OPV) #1 Historical ez [...] 11 .0-15.0 platelet count 280 THOUSAND/UL 10*3/mm3 356-915 9869/02/18 mean platelet volume 11.6 fL 7.5-12.5 Lab [...] mg/dL Encounters Code Encounter Date Provider Facility CPT-69963 Level 4 Est. Patient 16:18:17 HUMAN RELATIONS TEACHER Myrna maldonado MD [facility] CPT-52821 Level 4 Est. Patient 16:39:44 HUMAN RELATIONS TEACHER Jose Zhong MD [facility] CPT-94201 [id number] Vst-Est Level IV 13:45:[address] Tali Devi PA-C [facility] CPT-27913 [id number] Vst-Est Level III 09:41:31 CDT Arie Casper MD [facility] CPT-79210 54932-Ycn Vst-Est Level III 18:20:11 CDT Me lobito Russ [facility] CPT-02725 [id number] Vst-Est Level III 17:21:41 CDT Me lobito Russ [facility]-02729 80129-Drb Vst-Est Level IV 13:30:22 C DT Arie Casper MD [facility] CPT-43626 Level 4 Est. Patient 13:05:26 CDT Myrnakhadra maldonado MD [facility]-47894 17529-Ybd Vst-Est Level IV 20:50:21 C DT Arie Casper MD [facility] CPT-76999 Level 3 Est. Patient 11:49:34 HUMAN RELATIONS TEACHER Jessica boyd [facility] CPT-30871 Level 3 Est. Patient 14:55:50 HUMAN RELATIONS TEACHER Jose Zhong MD [facility] CPT-31815 Level 3 Est. Patient 10:21:41 HUMAN RELATIONS TEACHER Arie mcqueen MD [facility] CPT-00219 Level 3 Est. Patient 11:35:15 HUMAN RELATIONS TEACHER Arie mcqueen MD [facility] CPT-81463 Level 3 Est. Patient 15:40:28 CDT Brii Are [facility] CPT-14728 Level 3 Est. Patient 16:40:36 CDT Arie mcqueen MD [facility] CPT-48477 Level 4 Est. Patient 15:29:22 HUMAN RELATIONS TEACHER Arie mcqueen MD [facility] CPT-95741 Level 3 Est. Patient 15:18:16 HUMAN RELATIONS TEACHER Jono black DO [facility] CPT-72672 Level 4 Est. Patient 12:08:40 HUMAN RELATIONS TEACHER Brii Are ll [facility] CPT-18038 Level 3 Est. Patient 09:24:42 CDT Brii Are [facility] CPT-93710 Level 3 Est. Patient 09:12:56 CDT Arie mcqueen MD [facility] CPT-18835 Level 3 Est. Patient 16:40:54 CDT Jose Zhong MD [facility] CPT-72673 Level 2 Est. Patient 13:01:13 CDT Brii Are ll 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 [facility] CPT-74555 Level 3 Est. Patient 11:55:30 HUMAN RELATIONS TEACHER Jono black DO [facility] CPT-58006 Level 3 Est. Patient 09:52:36 HUMAN RELATIONS TEACHER Brii Are ll [facility] CPT-83260 Level 3 Est. Patient 16:25:33 HUMAN RELATIONS TEACHER Rich Rosales MD [facility] CPT-54576 Level 3 Est. Patient 20:33:55 CDT Arie mcqueen MD [facility] CPT-21738 Level 3 Est. Patient 14:18:20 CDT Rich Rosales MD [facility] CPT-95641 Level 4 Est. Patient 09:34:31 CDT Arie mcqueen MD [facility] CPT-71727 Level 3 Est. Patient 09:08:55 HUMAN RELATIONS TEACHER Liliana vincent MD PhD [facility]-95045 Level 3 Est. Patient 16:44:07 HUMAN RELATIONS TEACHER Arie mcqueen MD [facility] CPT-06497 Level 3 Est. Patient 10:44:27 CDT Arie mcqueen MD [facility] CPT-47318 Level 3 Est. Patient 08:55:41 CDT Jose Zhong MD [facility]-25652 Level 3 Est. Patient 18:37:31 CDT Liliana vincent MD PhD [facility]-19858 Level 3 Est. Patient 14:28:23 CDT Abelardo HERNANDEZ [facility] CPT-92630 Level 3 Est. Patient 15:18:13 HUMAN RELATIONS TEACHER Arie mcqueen MD [facility] CPT-80512 Level 3 Est. Patient 10:11:29 HUMAN RELATIONS TEACHER Arie mcqueen MD [facility] CPT-03006 Level 3 Est. Patient 10:55:57 HUMAN RELATIONS TEACHER Jono black DO [facility] CPT-06298 Level 3 Est. Patient 17:29:05 CDT Arie mcqueen MD [facility] [place] Procedures Code Procedure Name Date Entry Date Standard Desc ription CPT-66874 Sono OB transvag XRAY USE ONLY 17:12:53 CS T CPT-97973 Sono OB transvag XRAY USE ONLY 17:11:12 CS T CPT-56119 UHCG Urine - MARC ONLY 12:13:59 [employer] 12/11 CPT-79252 Spec Collection and Handling Fee 12:13:[address] CPT-37241 Visit 12:13:59 [employer] CPT-71575 First Vx - Ix admin via ID I M or jet injects without counseling by physician 13:00:15 [employer] CPT-19310 Flulaval Intramuscular Injectable 13:00:15 [employer] CPT-32367 Urine Dip (Floor Use Only) 12:20:20 [employer] 201 06/03/24 CPT-85925 Sono Soft Tissue Head and Neck - XRAY US E ONLY 17:10:14 CDT CPT-71708 Ear Wash with irrigation 17:21:41 CDT 07/04 CPT-23089 Nexplanon Removal 15:40:28 CDT CPT-82551 Sono transvag pelvis non OB uterus ovari es cervix - XRAY USE ONLY 08:58:14 [employer] CPT-21389 UA w micro - LAB USE ONLY 16:04:56 [employer] 2015 CPT-05927 Wet Prep/GEN - LAB USE ONLY 16:04:56 [employer] 20 08/10/29 CPT-44192 First Vx - Ix admin via ID I M or jet injects without counseling by physician 16:57:10 CDT CPT-89221 Fluzone Preservative Free Intramuscular Suspension 16:57:10 CDT CPT-J0696 Rocephin 1000 mg (Ceftriaxone) 11:49:23 CDT CPT-J1040 Depo Medrol 80 mg (Methyl Prednisolone A cetate) 11:49:23 CDT CPT-J1100 Decadron 8mg (Dexamethasone) 11:49:23 CDT 2 CPT-24818 Abx/Therapy Injection 11:49:23 CDT CPT-61329 Abx/Therapy Injection 11:49:23 CDT CPT-61602 Abd compl w upright 09:07:26 [employer] CPT-54819 Ear Wash 16:12:47 [employer] CPT-OV Office Visit 11:12:01 CDT CPT-OV Office Visit 15:30:23 CDT CPT-85289 Sono pelvis non OB uterus ovaries cervix 15:50:44 CDT CPT-31253 Hand comp min 3V 16:42:32 CDT CPT-16124 Abd compl w upright 12:17:01 CDT CPT-63036 Nexplanon Placement 15:07:39 [employer] CPT-70846 Removal of IUD 15:07:39 [employer] CPT-12322 TB Tubersol 12:09:32 CDT CPT-36581 TB Tubersol 13:55:43 CDT
--- OUTSIDE RECORDS SUMMARY | 2020-03-03 06:48 | XMS REPORT | Clinical Summary ---
Author Author Admin, Diamante Marcelo Organization [facility] Address Unknown Phone Unavailable Allergies, Adverse Reactions, Alerts Allergy Name Reaction Description Start Date Severity Status Pr ovider DILAUDID Severe Active Brii MARROQUIN RN Conditions [...] lower quadrant Urinary frequency 788.41 Inactive Roseann Crawford, [facility] Urinary frequency Urinary frequency 788.41 Resolved Jose Zhong MD Urinary frequency Sinusitis - acute 461.9 Resolved Jose Zhong MD Acute sinusitis, unspecified Anxiety with depression 300.4 Active Brii cheema [employer] Dysthymic disorder URI 465.9 Resolved Jose Zhong [...] Vaccination for Prophylaxis V04.81 Inactive Brii Russ [employer] Need for prophylactic vaccin ation and inoculation [...] Jose Marcelo [facility] COLON CANCER ICD-V16.0 Inactive Joes Zhong MD [facility] DIABETES ICD-V18.0 Inactive Jose [...] 3-4 times per day 12/11 PYRIDOXINE HCL 01458285519 Active Myrna Roberto MD Active UNISOM SLEEPTABS 25 MG ORAL TABLET one tab PO qhs DOXYLAMINE SUCCINATE (SLEEP) 93446498682 Active Myrna Roberto MD Active TYLENOL 325 MG ORAL CAPSULE PRN ACETAMINOPHEN 000 90136739 Active Brii Tara Active ESCITALOPRAM OXALATE 10 MG ORAL TABLET take 1 tab po qhs for mod ESCITALOPRAM OXALATE 10797133062 No Longer Active Brii Tara Active ALPRAZOLAM 0.25 MG ORAL TABLET 1 tablet by mouth twice a day as needed for stress/anxiety ALPRAZOLAM 46049561264 No Longer Active Brii Tara Active PROTONIX 40 MG ORAL TABLET DELAYED RELEASE 1 pill by m outh daily, for acid reflux PANTOPRAZOLE SODIUM 35716127065 No Longer Activ e Brii Tara Active DIFLUCAN 100 MG ORAL TABLET 1 tablet by mouth daily, R EPEAT 2ND DOSE IN 7 DAYS IF STILL SYMPTOMATIC FLUCONAZOLE 09626143140 No Long er Active Nilam Raida Active KEFLEX 500 MG ORAL CAPSULE 1 po tid CEPHALEXI N 59140050216 No Longer Active Tali Devi PA-C Active CONCEPT DHA 53.5-38-1 MG ORAL CAPSULE 1 tablet daily [id number] 3 55638357928 Active Oxana Souza LPN Active AMOXICILLIN 875 MG ORAL TABLET 1 tab by mouth twice daily 1 AMOXICILLIN 88830554791 No Longer Active Brii Russ [employer] Active TUSSIONEX PENNKINETIC ER 10-8 MG/5ML ORAL SUSPENSION E XTENDED RELEASE 5ml po q12hr PRN Cough HYDROCOD POLST-CHLORPHEN POLST 5 2543073282 No Longer Active Myrna Roberto MD Active ZITHROMAX Z-EMIL 250 MG TABS Take two tablets today and then 1 tablet daily for 4 days AZITHROMYCIN 17579789454 No Longer Active Flaco Rosales MD Active GUAIFENESIN DM 400-20 MG ORAL TABLET 1 pill by mouth t wice daily, if needed for cough DEXTROMETHORPHAN-GUAIFENESIN 64034231968 No Longer Active Rich Rosales MD Active CEFDINIR 300 MG ORAL CAPSULE 1 po BID x 10 days CEFDINIR 04491280582 No Longer Active Jessica Heaton [employer] Active CHERATUSSIN AC 100-10 MG/5ML ORAL SYRUP 1 tsp by mouth every 4 hours as needed for cough GUAIFENESIN-CODEINE 40486267863 No Longe r Active Jessica Heaton [employer] Active TAMIFLU 75 MG ORAL CAPSULE 1 po BID x 5 days 0 OSELTAMIVIR PHOSPHATE 26948755348 No Longer Active Jose Zhong MD Activ e ZITHROMAX Z-EMIL 250 MG ORAL TABLET 2 today, then 1 daily for 4 d ays AZITHROMYCIN 38966544282 No Longer Active Arie Casper MD Active PROTONIX 40 MG ORAL TABLET DELAYED RELEASE 1 po q a.m. PANTOPRAZOLE SODIUM 47710764153 No Longer Active Arie Casper MD Active BACTRIM DS 800-160 MG ORAL TABLET 1 tab by mouth twice daily 201 05/02/30 TRIMETHOPRIM-SULFAMETHOXAZOLE 16671010778 No Longer Active R KELLIE Sandoval Active NEXPLANON IMPLANT right arm subcutaneously ETONOGESTREL IMPL 58898842561 No Longer Active Brii Russ APRN Active TUSSIONEX PENNKINETIC ER 10-8 MG/5ML ORAL SUSPENSION E XTENDED RELEASE 5ml po q12hr PRN Cough HYDROCOD POLST-CHLORPHEN POLST 5 3721151497 No Longer Active Brii Russ APRN Active CETIRIZINE HCL 10 MG ORAL TABLET 1 po qd PRN Allergies CETIRIZINE HCL 28066881414 No Longer Active Brii Russ APRN Activ e PREDNISONE 20 MG ORAL TABLET 2 tabs daily for 3 days, 1 tab daily for 3 days, 1/2 tab daily for 2 days PREDNISONE 58591260756 No Longer Active Arie Casper MD Active LOMOTIL 2.5-0.025 MG ORAL TABLET 1 tab po four times a day as needed for diarrhea DIPHENOXYLATE-ATROPINE 75494118556 No Lo nger Active Arie Casper MD Active ZOLOFT 50 MG ORAL TABLET 1 tablet by mouth daily 12/08 SERTRALINE HCL 92147477703 No Longer Active Arie Casper MD Ac tive NAPROXEN 500 MG ORAL TABLET Take 1 tab BID NAPR OXEN 82367462740 No Longer Active Arie Casper MD Active CEFDINIR 300 MG ORAL CAPSULE 1 po BID x 10 days CEFDINIR 37147282620 No Longer Active Brii Russ APRN Active PREDNISONE 20 MG ORAL TABLET 1 tablet daily for airway inflammat ion PREDNISONE 98513675299 No Longer Active Brii Russ APRN A ctive CEFDINIR 300 MG ORAL CAPSULE 1 po BID x 10 days CEFDINIR 17813923822 No Longer Active Jono Gagnon DO Active FLONASE 50 MCG/ACT NASAL SUSPENSION 1 spray each nostr il twice daily for allergies and runny nose until gone FLUT ICASONE PROPIONATE 34587232153 No Longer Active Jono Gagnon DO Active ALPRAZOLAM 0.25 MG ORAL TABLET 1 tablet by mouth every 8 hours as needed for stress ALPRAZOLAM 15948608789 No Longer Active Jono Gagnon DO Active ZITHROMAX Z-EMIL 250 MG ORAL TABLET 2 today, then 1 daily for 4 d ays AZITHROMYCIN 55464689978 No Longer Active Arie Casper MD Active PREDNISONE 20 MG ORAL TABLET 2 tabs daily for 3 days, 1 tab daily for 3 days, 1/2 tab daily for 2 days PREDNISONE 54143211981 No Longer Active Brii Arell [employer]ER Active PREDNISONE 20 MG ORAL TABLET 1 tablet twice daily for 2 days, then 1 tablet once daily for 2 days PREDNISONE 90919440238 No Longer Active Brii Areboris PAREKHN Active PROMETHAZINE HCL 12.5 MG ORAL TABLET 1 tablet by mouth every 6 hours as needed for nausea/vomiting PROMETHAZINE HCL 13928023078 No L onger Active Jono Gagnon DO Active CITRATE OF MAGNESIA ORAL SOLUTION 1 bottle today for constipatio n MAGNESIUM CITRATE 66616421912 No Longer Active Jono Gagnon DO Active ZOFRAN 4 MG ORAL TABLET 1 TAB PO Q 6 HRS PRN NAUSEA 07/10/15 ONDANSETRON HCL 74715757251 No Longer Active Brii Arell [employer] Acti ve LOMOTIL 2.5-0.025 MG ORAL TABLET 1 to 2 four times a day as needed for diarrhea DIPHENOXYLATE-ATROPINE 96549028083 No Longer Active January Russ APRN Active AMOXICILLIN 500 MG ORAL TABLET 2 tabs twice a day for 10 days 20 07/09/11 AMOXICILLIN 38243184799 No Longer Active Brii Arell [employer]ER Active CYCLOBENZAPRINE HCL 10 MG ORAL TABLET 1/2 - 1 tablet b y mouth three times daily as needed for muscle spasm/pain CYCLOBENZAPRINE HCL 09922195522 No Longer Active Arie Casper MD Active LOMOTIL 2.5-0.025 MG ORAL TABLET 1 to 2 four times a day as needed for diarrhea DIPHENOXYLATE-ATROPINE 38059470348 No Longer Active D freddy Casper MD Active MACROBID 100 MG ORAL CAPSULE 1 cap by mouth twice daily NITROFURANTOIN MONOHYD MACRO 38378784892 No Longer Active Arie Casper MD Active ZYRTEC ALLERGY 10 MG ORAL CAPSULE 1 po qd CE TIRIZINE HCL 18593591995 No Longer Active Arie Casper MD Active AZITHROMYCIN 250 MG ORAL TABLET 2 po qd x 1 day, then 1 po q d x 4 days AZITHROMYCIN 91016154232 No Longer Active Jillina Fra naomi [employer]ED [employer]ER Active PREDNISONE 20 MG ORAL TABLET 2 tabs daily for 3 days, 1 tab daily for 3 days, 1/2 tab daily for 2 days PREDNISONE 11146688910 No Longer Active Jillina Fradeepl [employer]ED [employer]ER Active PROMETHAZINE HCL 25 MG ORAL TABLET 1 four times a day as nee ded for vomiting PROMETHAZINE HCL 96099969765 No Longer Active Myrna Roberto MD Active BACTRIM DS 800-160 MG ORAL TABLET 1 twice a day 05/30 SULFAMETHOXAZOLE-TRIMETHOPRIM 91959078858 No Longer Active Myrna Roberto MD Active VICKS DAYQUIL SEVERE COLD/FLU TABLET 1 tab every 6 hours prn 201 02/22/17 [id number] TABS 16880394118 No Longer Active K fany Roberto MD Active GUAIFENESIN-CODEINE 100-10 MG/5ML ORAL SYRUP 2 tsp every 6 hours prn GUAIFENESIN-CODEINE 63305972063 No Longer Active Myrna Roberto MD Active NAPROXEN 500 MG ORAL TABLET one tab PO BID NAPR OXEN 60670138140 No Longer Active Myrna Roberto MD Active AUGMENTIN 875-125 MG ORAL TABLET 1 tab by mouth twice daily with food AMOXICILLIN-POT CLAVULANATE 99824080809 No Longer Act zaid Liliana Estrada MD PhD Active AMOXICILLIN 500 MG ORAL CAPSULE 1 tab by mouth 3 times daily 201 02/21/05 AMOXICILLIN 82755725992 No Longer Active Liliana Estrada MD PhD Active RADHA PERLES 100 MG ORAL CAPSULE 1 tablet by mouth 3 times da cory BENZONATATE 96283012665 No Longer Active Liliana Estrada MD PhD Active FLAGYL 500 MG ORAL TABLET 1 tablet by mouth two times daily 2014 METRONIDAZOLE 85098975516 No Longer Active Nilamnory Plattida Ac tive ZITHROMAX 250 MG ORAL TABLET 2 po today, then 1 po q days 2-5 20 06/08/16 AZITHROMYCIN 88964668149 No Longer Active Arie Casper MD Active VITAMINS 0.8 MG ORAL TABLET take 1 tab po qday [id number] 74265975749 No Longer Active Arie Casper MD Active IBUPROFEN 800 MG ORAL TABLET take one po Q 8 hours 201 02/01/16 IBUPROFEN 80933724489 No Longer Active Arie Casper MD Acti ve [facility] TUSSIN COUGH/COLD CF 5-10-100 MG/5ML ORAL LIQUID 2 teasp oons every 4 hours [id number] 61938001061 No Longer Active Blaine Casper MD Active COMTREX COLD/COUGH DAY/NITE MS 5-2-10-325 MG ORAL 2 caps deja ry 4 hours [id number] 18235889590 No Longer Active Landon Casper MD Active CHLORASEPTIC MAX SORE THROAT 15-10 MG MOUTH/THROAT LOZENGE 1 every 2 hours prn BENZOCAINE-MENTHOL 18063399612 No Longer Active Arie Casper MD Active PREDNISONE 20 MG ORAL TABLET 2 tabs daily for 3 days, 1 tab daily for 3 days, 1/2 tab daily for 2 days PREDNISONE 85033161731 No Longer Active Jose Zhong MD Active AZITHROMYCIN 250 MG ORAL TABLET 2 po qd x 1 day, then 1 po q d x 4 days AZITHROMYCIN 20378017831 No Longer Active Jose Mcwilliams MD Active ZOFRAN ODT 4 MG ORAL TABLET DISINTEGRATING 1 po q6hr PRN Nausea ONDANSETRON 59419476415 No Longer Active Rich Rosales MD Active ZOFRAN 4 MG ORAL TABLET 1 tablet every 4 hours ONDANSETRON HCL 62893681122 No Longer Active Rich Rosales MD Activ e MUCINEX 600 MG ORAL TABLET EXTENDED RELEASE 12 HOUR Ta ke 1-2 tablets every 12 hours GUAIFENESIN 28737095633 No Longer Active Rich Rosales MD Active BACTRIM 400-80 MG ORAL TABLET take one po BID SULFAMETHOXAZOLE-TRIMETHOPRIM 73601719135 No Longer Active Abelardo HERNANDEZ Active AZITHROMYCIN 500 MG ORAL TABLET 1 PO q day x 6 days 20 03/02/23 AZITHROMYCIN 50551835924 No Longer Active Tin HERNANDEZ Activ e ZITHROMAX 250 MG ORAL TABLET 2 po today, then 1 po q days 2-5 20 10/03/08 AZITHROMYCIN 46966423584 No Longer Active Arie Casper MD Active ZITHROMAX 250 MG ORAL TABLET 2 po today, then 1 po q days 2-5 20 09/23/25 AZITHROMYCIN 03006607389 No Longer Active Arie Casper MD Active AMOXICILLIN 500 MG ORAL CAPSULE 1 tab by mouth 3 times daily 201 11/24/09 AMOXICILLIN 64624589833 No Longer Active Arie Casper MD Active BACTRIM DS 800-160 MG ORAL TABLET 1 tab by mouth twice daily 201 11/03/14 TRIMETHOPRIM-SULFAMETHOXAZOLE 84166140334 No Longer Active Fozia Casper MD Active AMOXICILLIN 500 MG ORAL TABLET take 1 tab po TID 08/05 AMOXICILLIN 82895445880 No Longer Active Arie Casper MD Acti ve BACTRIM DS 800-160 MG ORAL TABLET 1 tab by mouth twice daily 201 11/03/14 BACTRIM DS 800-160 MG ORAL TABLET 549623 TRIMETHOPRIM-SULFAMETHOXAZOLE Inactive MUCINEX 600 MG ORAL TABLET EXTENDED RELEASE 12 HOUR Ta ke 1-2 tablets every 12 hours MUCINEX 600 MG ORAL TABLET EXTENDED RELEA SE 12 HOUR GUAIFENESIN Inactive ZOFRAN 4 MG ORAL TABLET 1 tablet every 4 hours ZOFRAN 4 MG ORAL TABLET 349237 ONDANSETRON HCL Inactive ZOFRAN ODT 4 MG [...] COLD/COUGH DAY/NITE MS 5-2-10-325 MG ORA L [id number] Inactive [facility] TUSSIN COUGH/COLD CF 5-10-100 MG/5ML ORAL LIQUID 2 teasp oons every 4 hours [facility] TUSSIN COUGH/COLD CF 5-10-100 MG/5ML ORAL LI QUID [id number] Inactive IBUPROFEN 800 MG ORAL TABLET take one po Q 8 hours 201 02/01/16 IBUPROFEN 800 MG ORAL TABLET IBUPROFEN Inactive VITAMINS 0.8 MG ORAL TABLET take 1 tab po qday VITAMINS 0.8 MG ORAL TABLET [id number] E-FA Inactive TESSALON PERLES 100 MG ORAL CAPSULE 1 tablet by mouth 3 times da cory TESSALON PERLES 100 MG ORAL CAPSULE 622611 BENZONATATE Inactive AMOXICILLIN 500 MG ORAL CAPSULE 1 tab by mouth 3 times daily 201 02/21/05 AMOXICILLIN 500 MG ORAL CAPSULE 489371 AMOXICILLIN Inactive GUAIFENESIN-CODEINE 100-10 MG/5ML ORAL SYRUP 2 tsp every 6 hours prn GUAIFENESIN-CODEINE 100-10 MG/5ML ORAL SYRUP 394813 GUAIFENESIN-CODEINE Inactive VICKS DAYQUIL SEVERE COLD/FLU TABLET 1 tab every 6 hours prn 201 02/22/17 VICKS DAYQUIL SEVERE COLD/FLU TABLET PHENYLEPHRI [id number] TABS Inactive BACTRIM DS 800-160 MG ORAL TABLET 1 twice a day 05/30 BACTRIM DS 800-160 MG ORAL TABLET 152729 SULFAMETHOXAZOLE-TRIMETHOPRIM Inactiv e PROMETHAZINE HCL 25 MG ORAL TABLET 1 four times a day as nee ded for vomiting PROMETHAZINE HCL 25 MG ORAL TABLET 923149 PROMETHAZINE HCL Inactive ZYRTEC ALLERGY 10 MG ORAL CAPSULE 1 po qd ZYRTEC ALLERGY 10 MG ORAL CAPSULE CETIRIZINE HCL Inactive MACROBID 100 MG ORAL CAPSULE 1 cap by mouth twice daily MACROBID 100 MG ORAL CAPSULE 8482245 NITROFURANTOIN MONOHYD MACRO In active LOMOTIL 2.5-0.025 MG ORAL TABLET 1 to 2 four times a day as needed for diarrhea LOMOTIL 2.5-0.025 MG ORAL TABLET 4260967 DIPHENOXYLATE-ATROPINE Inactive CYCLOBENZAPRINE HCL 10 MG ORAL TABLET 1/2 - 1 tablet b y mouth three times daily as needed for muscle spasm/pain CYCLOBEN ZAPRINE HCL 10 MG ORAL TABLET 039048 CYCLOBENZAPRINE HCL Inactive AMOXICILLIN 500 MG ORAL TABLET 2 tabs twice a day for 10 days 20 07/09/11 AMOXICILLIN 500 MG ORAL TABLET 244962 AMOXICILLIN I nactive LOMOTIL 2.5-0.025 MG ORAL TABLET 1 to 2 four times a day as needed for diarrhea LOMOTIL 2.5-0.025 MG ORAL TABLET 0300507 DIPHENOXYLATE-ATROPINE Inactive ZOFRAN 4 MG ORAL TABLET 1 TAB PO Q 6 HRS PRN NAUSEA 20 07/10/15 ZOFRAN 4 MG ORAL TABLET 036321 ONDANSETRON HCL Inactive CITRATE OF MAGNESIA ORAL SOLUTION 1 bottle today for constipatio n CITRATE OF MAGNESIA ORAL SOLUTION 1269499 MAGNESIUM CITR ATE Inactive PROMETHAZINE HCL 12.5 MG ORAL TABLET 1 tablet by mouth every 6 hours as needed for nausea/vomiting PROMETHAZINE HCL 12.5 MG ORA L TABLET 815590 PROMETHAZINE HCL Inactive PREDNISONE 20 MG ORAL TABLET 1 tablet twice daily for 2 days, then 1 tablet once daily for 2 days PREDNISONE 20 MG ORAL TABLET 150604 PREDNISONE Inactive ALPRAZOLAM 0.25 MG ORAL TABLET 1 tablet by mouth every 8 hours as needed for stress ALPRAZOLAM 0.25 MG ORAL TABLET 579740 ALPRA ZOLAM Inactive FLONASE 50 MCG/ACT NASAL SUSPENSION 1 spray each nostr il twice daily for allergies and runny nose until gone FLON ASE 50 MCG/ACT NASAL SUSPENSION FLUTICASONE PROPIONATE Inactive PREDNISONE 20 MG ORAL TABLET 1 tablet daily for airway inflammat ion PREDNISONE 20 MG ORAL TABLET 701568 PREDNISONE [place] ctive NAPROXEN 500 MG ORAL TABLET Take 1 tab BID NAPROXEN 500 MG ORAL TABLET 542836 NAPROXEN Inactive ZOLOFT 50 MG ORAL TABLET 1 tablet by mouth daily 12/08 ZOLOFT 50 MG ORAL TABLET 146237 SERTRALINE HCL Inactive LOMOTIL 2.5-0.025 MG ORAL TABLET 1 tab po four times a day as needed for diarrhea LOMOTIL 2.5-0.025 MG ORAL TABLET 1282689 DIPHENOXYLATE-ATROPINE Inactive CETIRIZINE HCL 10 MG ORAL TABLET 1 po qd PRN Allergies CETIRIZINE HCL 10 MG ORAL TABLET 0381935 CETIRIZINE HCL Inactiv e TUSSIONEX PENNKINETIC ER 10-8 MG/5ML ORAL SUSPENSION E XTENDED RELEASE 5ml po q12hr PRN Cough TUSSIONEX PENNKINETI C ER 10-8 MG/5ML ORAL SUSPENSION EXTENDED RELEASE HYDROCOD POLST-CHLORPHEN POLST I nactive NEXPLANON IMPLANT right arm subcutaneously NEXPLANON IMPLANT ETONOGESTREL IMPL Inactive PROTONIX 40 MG ORAL TABLET DELAYED RELEASE 1 po q a.m. PROTONIX 40 MG ORAL TABLET DELAYED RELEASE 564788 PANTOPRAZOLE SODI UM Inactive CHERATUSSIN AC 100-10 MG/5ML ORAL SYRUP 1 tsp by mouth every 4 hours as needed for cough CHERATUSSIN AC 100-10 MG/5ML ORAL SYRUP 9 38558 GUAIFENESIN-CODEINE Inactive GUAIFENESIN DM 400-20 MG ORAL [...] tid K EFLEX 500 MG ORAL CAPSULE 043991 CEPHALEXIN Inactive DIFLUCAN 100 MG ORAL TABLET 1 tablet by mouth daily, R EPEAT 2ND DOSE IN 7 DAYS IF STILL SYMPTOMATIC DIFLUCAN 100 MG ORAL TABLET 00896 8 FLUCONAZOLE Inactive PROTONIX 40 MG ORAL TABLET DELAYED RELEASE 1 pill by m outh daily, for acid reflux PROTONIX 40 MG ORAL TABLET DELAYED RELEAS E 013021 PANTOPRAZOLE SODIUM Inactive ALPRAZOLAM 0.25 MG ORAL TABLET 1 tablet by mouth twice a day as needed for stress/anxiety ALPRAZOLAM 0.25 MG ORAL TABLET 792150 ALPRAZOLAM Inactive ESCITALOPRAM OXALATE 10 MG ORAL TABLET take 1 tab po qhs for mod ESCITALOPRAM OXALATE 10 MG ORAL TABLET 084907 ESCITALOP OJ OXALATE Inactive AMOXICILLIN 500 MG ORAL TABLET take 1 tab po TID 08/05 AMOXICILLIN 500 MG ORAL TABLET 585379 AMOXICILLIN Inactive AMOXICILLIN 500 MG ORAL CAPSULE 1 tab by mouth 3 times daily 201 11/24/09 AMOXICILLIN 500 MG ORAL CAPSULE 508295 AMOXICILLIN Inactive ZITHROMAX 250 MG ORAL TABLET 2 po today, then 1 po q days 2-5 20 09/23/25 ZITHROMAX 250 MG ORAL TABLET 861656 AZITHROMYCIN [place] ctive ZITHROMAX 250 MG ORAL TABLET 2 po today, then 1 po q days 2-5 20 10/03/08 ZITHROMAX 250 MG ORAL TABLET 935265 AZITHROMYCIN [place] ctive AZITHROMYCIN 500 MG ORAL TABLET 1 PO q day x 6 days 03/02/23 AZITHROMYCIN 500 MG ORAL TABLET 0993836 AZITHROMYCIN Inactive BACTRIM 400-80 MG ORAL TABLET take one po BID BACTRIM 400- 80 MG ORAL TABLET 625553 SULFAMETHOXAZOLE-TRIMETHOPRIM Inactive AZITHROMYCIN 250 MG ORAL TABLET 2 po qd x 1 day, then 1 po q d x 4 days AZITHROMYCIN 250 MG ORAL TABLET 415460 AZITHROMY ALLISON Inactive PREDNISONE 20 MG ORAL TABLET 2 tabs daily for 3 days, 1 tab daily for 3 days, 1/2 tab daily for 2 days PREDNISONE 20 MG ORAL T ABLET 680919 PREDNISONE Inactive ZITHROMAX 250 MG ORAL TABLET 2 po today, then 1 po q days 2-5 20 06/08/16 ZITHROMAX 250 MG ORAL TABLET 284524 AZITHROMYCIN [place] ctive FLAGYL 500 MG ORAL TABLET 1 tablet by mouth two times daily 2014 FLAGYL 500 MG ORAL TABLET 549576 METRONIDAZOLE Inacti ve AUGMENTIN 875-125 MG ORAL TABLET 1 tab by mouth twice daily with food AUGMENTIN 875-125 MG ORAL TABLET 078408 AMOXICIL ELSA-POT CLAVULANATE Inactive NAPROXEN 500 MG ORAL TABLET one tab PO BID NAPROXEN 500 MG ORAL TABLET 731224 NAPROXEN Inactive PREDNISONE 20 MG ORAL TABLET 2 tabs daily for 3 days, 1 tab daily for 3 days, 1/2 tab daily for 2 days PREDNISONE 20 MG ORAL T ABLET 474032 PREDNISONE Inactive AZITHROMYCIN 250 MG ORAL TABLET 2 po qd x 1 day, then 1 po q d x 4 days AZITHROMYCIN 250 MG ORAL TABLET 130535 AZITHROMY ALLISON Inactive PREDNISONE 20 MG ORAL TABLET 2 tabs daily for 3 days, 1 tab daily for 3 days, 1/2 tab daily for 2 days PREDNISONE 20 MG ORAL T ABLET 423854 PREDNISONE Inactive ZITHROMAX Z-EMIL 250 MG ORAL TABLET 2 today, then 1 daily for 4 d ays ZITHROMAX Z-EMIL 250 MG ORAL TABLET 383721 AZITHROMYCIN Inactive CEFDINIR 300 MG ORAL CAPSULE 1 po BID x 10 days 12/18 CEFDINIR 300 MG ORAL CAPSULE 773222 CEFDINIR Inactive CEFDINIR 300 MG ORAL CAPSULE 1 po BID x 10 days CEFDINIR 300 MG ORAL CAPSULE 689901 CEFDINIR Inactive PREDNISONE 20 MG ORAL TABLET 2 tabs daily for 3 days, 1 tab daily for 3 days, 1/2 tab daily for 2 days PREDNISONE 20 MG ORAL T ABLET 264029 PREDNISONE Inactive BACTRIM DS 800-160 MG ORAL TABLET 1 tab by mouth twice daily 201 05/02/30 BACTRIM DS 800-160 MG ORAL TABLET 908672 TRIMETHOPRIM-SULFAMETHOXAZOLE Inactive ZITHROMAX Z-EMIL 250 MG ORAL TABLET 2 today, then 1 daily for 4 d ays ZITHROMAX Z-EMIL 250 MG ORAL TABLET 944361 AZITHROMYCIN Inactive TAMIFLU 75 MG ORAL CAPSULE 1 po BID x 5 days 0 TAMIFLU 75 MG ORAL CAPSULE 343216 OSELTAMIVIR PHOSPHATE Inactive CEFDINIR 300 MG ORAL CAPSULE 1 po BID x 10 days 01/03 CEFDINIR 300 MG ORAL CAPSULE 022032 CEFDINIR Inactive ZITHROMAX Z-EMIL 250 MG TABS Take two tablets today and then 1 tablet daily for 4 days ZITHROMAX Z-EMIL 250 MG TABS 628083 AZITHROM YCIN Inactive AMOXICILLIN 875 MG ORAL TABLET 1 tab by mouth twice daily AMOXICILLIN 875 MG ORAL TABLET 393430 AMOXICILLIN Inactive Advance Directives Directive Description Start [...] 11 .0-15.0 platelet count 280 THOUSAND/UL 10*3/mm3 749-053 7481/02/18 mean platelet volume 11.6 fL 7.5-12.5 Lab [...] mg/dL Encounters Code Encounter Date Provider Facility CPT-68574 Level 4 Est. Patient 16:18:17 [employer] Myrna maldonado MD [facility] CPT-58951 Level 4 Est. Patient 16:39:44 [employer] Jose Zhong MD [facility] CPT-58817 [id number] Vst-Est Level IV 13:45:[address] Tali Devi PA-C [facility] CPT-70569 [id number] Vst-Est Level III 09:41:31 CDT Arie Casper MD [facility] CPT-61371 [id number] Vst-Est Level III 18:20:11 CDT Me lobito Russ [facility] CPT-99886 [id number] Vst-Est Level III 17:21:41 CDT Me lobito Russ [facility] CPT-28328 [id number] Vst-Est Level IV 13:30:22 C DT Arie Casper MD [facility] CPT-25817 Level 4 Est. Patient 13:05:26 CDT Myrnakhadra maldonado MD [facility] [place]-71037 [id number] Vst-Est Level IV 20:50:21 C DT Arie Casper MD [facility] CPT-04802 Level 3 Est. Patient 11:49:34 [employer] Jessica boyd [facility] CPT-30538 Level 3 Est. Patient 14:55:50 [employer] Jose Zhong MD [facility] CPT-76961 Level 3 Est. Patient 10:21:41 [employer] Arie mcqueen MD [facility] CPT-88488 Level 3 Est. Patient 11:35:15 [employer] Arie mcqueen MD [facility] CPT-76773 Level 3 Est. Patient 15:40:28 CDT Brii Are [facility] CPT-44075 Level 3 Est. Patient 16:40:36 CDT Arie mcqueen MD [facility] CPT-64472 Level 4 Est. Patient 15:29:22 [employer] Arie mcqueen MD [facility] CPT-29831 Level 3 Est. Patient 15:18:16 [employer] Jono black DO [facility] CPT-82700 Level 4 Est. Patient 12:08:40 [employer] Brii Are [facility] CPT-98178 Level 3 Est. Patient 09:24:42 CDT Brii Are [facility] CPT-50232 Level 3 Est. Patient 09:12:56 CDT Arie mcqueen MD [facility] CPT-79605 Level 3 Est. Patient 16:40:54 CDT Jose Zhong MD [facility] CPT-39540 Level 2 Est. Patient 13:01:13 CDT Brii Are ll [employer] [facility] CPT-73293 Level 3 Est. Patient 11:55:30 [employer] Jono black DO [facility] CPT-42194 Level 3 Est. Patient 09:52:36 [employer]CH[employer] Brii Are ll [facility] CPT-76797 Level 3 Est. Patient 16:25:33 [employer] Rich Rosales MD [facility] CPT-11732 Level 3 Est. Patient 20:33:55 CDT Arie mcqueen MD [facility] CPT-89309 Level 3 Est. Patient 14:18:20 CDT Rich Rosales MD [facility] CPT-82525 Level 4 Est. Patient 09:34:31 CDT Arie mcqueen MD [facility] CPT-19326 Level 3 Est. Patient 09:08:55 [employer] Liliana vincent MD PhD [facility] CPT-53844 Level 3 Est. Patient 16:44:07 [employer] Arie mcqueen MD [facility] CPT-31408 Level 3 Est. Patient 10:44:27 CDT Arie mcqueen MD [facility] CPT-59791 Level 3 Est. Patient 08:55:41 CDT Jose Zhong MD [facility] CPT-50578 Level 3 Est. Patient 18:37:31 CDT Liliana vincent MD PhD [facility] CPT-82758 Level 3 Est. Patient 14:28:23 CDT Abelardo HERNANDEZ [facility] CPT-73153 Level 3 Est. Patient 15:18:13 [employer] Arie mcqueen MD [facility] CPT-19043 Level 3 Est. Patient 10:11:29 [employer] Arie mcqueen MD [facility] CPT-34310 Level 3 Est. Patient 10:55:57 [employer] Jono black DO [facility] CPT-94720 Level 3 Est. Patient 17:29:05 CDT Arie mcqueen MD [facility] Procedures Code Procedure Name Date Entry Date Standard Desc ription CPT-03896 Sono OB transvag XRAY USE ONLY 17:12:53 CS T CPT-03825 Sono OB transvag XRAY USE ONLY 17:11:12 CS T CPT-42687 UHCG Urine - MARC ONLY 12:13:59 [employer] 12/11 CPT-00174 Spec Collection and Handling Fee 12:13:[address] CPT-46255 Visit 12:13:59 [employer] CPT-66621 First Vx - Ix admin via ID I M or jet injects without counseling by physician 13:00:15 [employer] CPT-96395 Flulaval Intramuscular Injectable 13:00:15 [employer] CPT-03947 Urine Dip (Floor Use Only) 12:20:20 [employer] 201 06/03/24 CPT-89053 Sono Soft Tissue Head and Neck - XRAY US E ONLY 17:10:14 CDT CPT-28199 Ear Wash with irrigation 17:21:41 CDT 07/04 CPT-88849 Nexplanon Removal 15:40:28 CDT CPT-30262 Sono transvag pelvis non OB uterus ovari es cervix - XRAY USE ONLY 08:58:14 [employer] CPT-48141 UA w micro - LAB USE ONLY 16:04:56 [employer] 2015 CPT-71200 Wet Prep/GEN - LAB USE ONLY 16:04:56 [employer] 20 08/10/29 CPT-71706 First Vx - Ix admin via ID I M or jet injects without counseling by physician 16:57:10 CDT CPT-98658 Fluzone Preservative Free Intramuscular Suspension 16:57:10 CDT CPT-J0696 Rocephin 1000 mg (Ceftriaxone) 11:49:23 CDT CPT-J1040 Depo Medrol 80 mg (Methyl Prednisolone A cetate) 11:49:23 CDT CPT-J1100 Decadron 8mg (Dexamethasone) 11:49:23 CDT 2 CPT-54461 Abx/Therapy Injection 11:49:23 CDT CPT-89071 Abx/Therapy Injection 11:49:23 CDT CPT-38929 Abd compl w upright 09:07:26 [employer] CPT-89496 Ear Wash 16:12:47 [employer] CPT-OV Office Visit 11:12:01 CDT CPT-OV Office Visit 15:30:23 CDT CPT-08388 Sono pelvis non OB uterus ovaries cervix 15:50:44 CDT CPT-24592 Hand comp min 3V 16:42:32 CDT CPT-21325 Abd compl w upright 12:17:01 CDT CPT-61221 Nexplanon Placement 15:07:39 [employer] CPT-96169 Removal of IUD 15:07:39 [employer] CPT-08604 TB Tubersol 12:09:32 CDT CPT-16409 TB Tubersol 13:55:43 CDT
--- OUTSIDE RECORDS SUMMARY | 2020-03-03 06:49 | XMS REPORT | Clinical Summary ---
Author Author Dena, Diamante Marcelo Organization [employer] Address Unknown Phone Unavailable Allergies, Adverse Reactions, Alerts Allergy Name Reaction Description Start Date Severity Status Pr ovider DILAUDID Severe Active Brii MARRQOUIN RN Conditions or Problems Problem Name Problem [...] quadrant Urinary frequency 788.41 Inactive Roseann Crawford, [facility] Urinary frequency Urinary frequency 788.41 Resolved [...] Vaccination for Prophylaxis V04.81 Inactive Brii Russ V BELT BUILDER Need for prophylactic vaccin ation and [...] 3-4 times per day 12/11 PYRIDOXINE HCL 96003696037 Active Myrna Roberto MD Active UNISOM SLEEPTABS 25 MG ORAL TABLET one tab PO qhs DOXYLAMINE SUCCINATE (SLEEP) 19914173782 Active Myrna Roberto MD Active TYLENOL 325 MG ORAL CAPSULE PRN ACETAMINOPHEN 000 28416270 Active Brii Pacheco Active ESCITALOPRAM OXALATE 10 MG ORAL TABLET take 1 tab po qhs for mod ESCITALOPRAM OXALATE 70823954371 No Longer Active Brii Pacheco Active ALPRAZOLAM 0.25 MG ORAL TABLET 1 tablet by mouth twice a day as needed for stress/anxiety ALPRAZOLAM 57049464109 No Longer Active Brii Pacheco Active PROTONIX 40 MG ORAL TABLET DELAYED RELEASE 1 pill by m outh daily, for acid reflux PANTOPRAZOLE SODIUM 17100588838 No Longer Activ e Brii Tara Active DIFLUCAN 100 MG ORAL TABLET 1 tablet by mouth daily, R EPEAT 2ND DOSE IN 7 DAYS IF STILL SYMPTOMATIC FLUCONAZOLE 46499462254 No Long er Active Nilam Weber Active KEFLEX 500 MG ORAL CAPSULE 1 po tid CEPHALEXI N 35686759962 No Longer Active Tali Devi PA-C Active CONCEPT DHA 53.5-38-1 MG ORAL CAPSULE 1 tablet daily [id number]-FA-OMEGA 3 98121225162 Active Oxana Souza DOUBLE SPINDLE SHAPER 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 Active AMOXICILLIN 875 MG ORAL TABLET 1 tab by mouth twice daily 1 AMOXICILLIN 15498282213 No Longer Active Brii Russ V BELT BUILDER Active TUSSIONEX PENNKINETIC ER 10-8 MG/5ML ORAL SUSPENSION E XTENDED RELEASE 5ml po q12hr PRN Cough HYDROCOD POLST-CHLORPHEN POLST 5 2252661940 No Longer Active Myrna Roberto MD Active ZITHROMAX Z-EMIL 250 MG TABS Take two tablets today and then 1 tablet daily for 4 days AZITHROMYCIN 24794840854 No Longer Active Flaco Rosales MD Active GUAIFENESIN DM 400-20 MG ORAL TABLET 1 pill by mouth t wice daily, if needed for cough DEXTROMETHORPHAN-GUAIFENESIN 69644734745 No Longer Active Rich Rosales MD Active CEFDINIR 300 MG ORAL CAPSULE 1 po BID x 10 days CEFDINIR 48666255423 No Longer Active Jessica Heaton V BELT BUILDER Active CHERATUSSIN AC 100-10 MG/5ML ORAL SYRUP 1 tsp by mouth every 4 hours as needed for cough GUAIFENESIN-CODEINE 58819405187 No Longe r Active Jessica Heaton V BELT BUILDER Active TAMIFLU 75 MG ORAL CAPSULE 1 po BID x 5 days 0 OSELTAMIVIR PHOSPHATE 94131166271 No Longer Active Jose Zhong MD Activ e ZITHROMAX Z-EMIL 250 MG ORAL TABLET 2 today, then 1 daily for 4 d ays AZITHROMYCIN 60336962457 No Longer Active Arie Casper MD Active PROTONIX 40 MG ORAL TABLET DELAYED RELEASE 1 po q a.m. PANTOPRAZOLE SODIUM 93650559558 No Longer Active Arie Casper MD Active BACTRIM DS 800-160 MG ORAL TABLET 1 tab by mouth twice daily 201 05/02/30 TRIMETHOPRIM-SULFAMETHOXAZOLE 77019825072 No Longer Active R KELLIE Sandoval Active NEXPLANON IMPLANT right arm subcutaneously ETONOGESTREL IMPL 31600006981 No Longer Active Brii Russ V BELT BUILDER Active TUSSIONEX PENNKINETIC ER 10-8 MG/5ML ORAL SUSPENSION E XTENDED RELEASE 5ml po q12hr PRN Cough HYDROCOD POLST-CHLORPHEN POLST 5 7813780890 No Longer Active Brii Russ APRN Active CETIRIZINE HCL 10 MG ORAL TABLET 1 po qd PRN Allergies CETIRIZINE HCL 33266359518 No Longer Active Brii Russ APRN Activ e PREDNISONE 20 MG ORAL TABLET 2 tabs daily for 3 days, 1 tab daily for 3 days, 1/2 tab daily for 2 days PREDNISONE 55768922901 No Longer Active Arie Casper MD Active LOMOTIL 2.5-0.025 MG ORAL TABLET 1 tab po four times a day as needed for diarrhea DIPHENOXYLATE-ATROPINE 04141848990 No Lo nger Active Arie Casper MD Active ZOLOFT 50 MG ORAL TABLET 1 tablet by mouth daily 12/08 SERTRALINE HCL 88061875778 No Longer Active Arie Casper MD Ac tive NAPROXEN 500 MG ORAL TABLET Take 1 tab BID NAPR OXEN 32841037392 No Longer Active Arie Casper MD Active CEFDINIR 300 MG ORAL CAPSULE 1 po BID x 10 days CEFDINIR 06234186889 No Longer Active Brii Russ APRN Active PREDNISONE 20 MG ORAL TABLET 1 tablet daily for airway inflammat ion PREDNISONE 54593423822 No Longer Active Brii Russ APRN A ctive CEFDINIR 300 MG ORAL CAPSULE 1 po BID x 10 days CEFDINIR 90090980847 No Longer Active Jono Gagnon DO Active FLONASE 50 MCG/ACT NASAL SUSPENSION 1 spray each nostr il twice daily for allergies and runny nose until gone FLUT ICASONE PROPIONATE 67792773124 No Longer Active Jono Gagnon DO Active ALPRAZOLAM 0.25 MG ORAL TABLET 1 tablet by mouth every 8 hours as needed for stress ALPRAZOLAM 35232528445 No Longer Active Jono Gagnon DO Active ZITHROMAX Z-EMIL 250 MG ORAL TABLET 2 today, then 1 daily for 4 d ays AZITHROMYCIN 91140835437 No Longer Active Arie Casper MD Active PREDNISONE 20 MG ORAL TABLET 2 tabs daily for 3 days, 1 tab daily for 3 days, 1/2 tab daily for 2 days PREDNISONE 93545599911 No Longer Active Brii Russ APRN Active PREDNISONE 20 MG ORAL TABLET 1 tablet twice daily for 2 days, then 1 tablet once daily for 2 days PREDNISONE 91028236510 No Longer Active Brii Russ APRN Active PROMETHAZINE HCL 12.5 MG ORAL TABLET 1 tablet by mouth every 6 hours as needed for nausea/vomiting PROMETHAZINE HCL 48016806352 No L onger Active Jono Gagnon DO Active CITRATE OF MAGNESIA ORAL SOLUTION 1 bottle today for constipatio n MAGNESIUM CITRATE 37419454426 No Longer Active Jono Gagnon DO Active ZOFRAN 4 MG ORAL TABLET 1 TAB PO Q 6 HRS PRN NAUSEA 20 07/10/15 ONDANSETRON HCL 58318751118 No Longer Active Brii Russ APRN Acti ve LOMOTIL 2.5-0.025 MG ORAL TABLET 1 to 2 four times a day as needed for diarrhea DIPHENOXYLATE-ATROPINE 93483878900 No Longer Active January Russ APRN Active AMOXICILLIN 500 MG ORAL TABLET 2 tabs twice a day for 10 days 20 07/09/11 AMOXICILLIN 68379272117 No Longer Active Brii Russ APRN Active CYCLOBENZAPRINE HCL 10 MG ORAL TABLET 1/2 - 1 tablet b y mouth three times daily as needed for muscle spasm/pain CYCLOBENZAPRINE HCL 62361376036 No Longer Active Arie Casper MD Active LOMOTIL 2.5-0.025 MG ORAL TABLET 1 to 2 four times a day as needed for diarrhea DIPHENOXYLATE-ATROPINE 64874615720 No Longer Active Fozia Casper MD Active MACROBID 100 MG ORAL CAPSULE 1 cap by mouth twice daily NITROFURANTOIN MONOHYD MACRO 89398352013 No Longer Active Arie Casper MD Active ZYRTEC ALLERGY 10 MG ORAL CAPSULE 1 po qd CE TIRIZINE HCL 42300852328 No Longer Active Arie Casper MD Active AZITHROMYCIN 250 MG ORAL TABLET 2 po qd x 1 day, then 1 po q d x 4 days AZITHROMYCIN 49448173810 No Longer Active Jillina Fra naomi V BELT BUILDER Active PREDNISONE 20 MG ORAL TABLET 2 tabs daily for 3 days, 1 tab daily for 3 days, 1/2 tab daily for 2 days PREDNISONE 01732894040 No Longer Active Jillina Frazell V BELT BUILDER Active PROMETHAZINE HCL 25 MG ORAL TABLET 1 four times a day as nee ded for vomiting PROMETHAZINE HCL 07546463747 No Longer Active Myrna Roberto MD Active BACTRIM DS 800-160 MG ORAL TABLET 1 twice a day 05/30 SULFAMETHOXAZOLE-TRIMETHOPRIM 01011212538 No Longer Active Myrna Roberto MD Active VICKS DAYQUIL SEVERE COLD/FLU TABLET 1 tab every 6 hours prn 201 02/22/17 [id number]-APAP TABS 95780273382 No Longer Active Chris Roberto MD Active GUAIFENESIN-CODEINE 100-10 MG/5ML ORAL SYRUP 2 tsp every 6 hours prn GUAIFENESIN-CODEINE 49843289124 No Longer Active Myrna Roberto MD Active NAPROXEN 500 MG ORAL TABLET one tab PO BID NAPR OXEN 36533743736 No Longer Active Myrna Roberto MD Active AUGMENTIN 875-125 MG ORAL TABLET 1 tab by mouth twice daily with food AMOXICILLIN-POT CLAVULANATE 06758071582 No Longer Act zaid Estrada MD PhD Active AMOXICILLIN 500 MG ORAL CAPSULE 1 tab by mouth 3 times daily 201 02/21/05 AMOXICILLIN 74386942923 No Longer Active Liliana Estrada MD PhD Active TESSALON PERLES 100 MG ORAL CAPSULE 1 tablet by mouth 3 times da cory BENZONATATE 60015680585 No Longer Active Liliana Estrada MD PhD Active FLAGYL 500 MG ORAL TABLET 1 tablet by mouth two times daily 2014 METRONIDAZOLE 42678359030 No Longer Active Nilam Plattida Ac tive ZITHROMAX 250 MG ORAL TABLET 2 po today, then 1 po q days 2-5 20 06/08/16 AZITHROMYCIN 95083886141 No Longer Active Arie Casper MD Active VITAMINS 0.8 MG ORAL TABLET take 1 tab po qday [id number] 90172160900 No Longer Active Arie Casper MD Active IBUPROFEN 800 MG ORAL TABLET take one po Q 8 hours 201 02/01/16 IBUPROFEN 11733988700 No Longer Active Arie Casper MD Acti ve [facility] TUSSIN COUGH/COLD CF 5-10-100 MG/5ML ORAL LIQUID 2 teasp oons every 4 hours [id number] 07758448229 No Longer Active Blaine Casper MD Active COMTREX COLD/COUGH DAY/NITE MS 5-2-10-325 MG ORAL 2 caps deja ry 4 hours GGRQUOUQT-LOU-GN-APAP 38953110122 No Longer Active Landon Casper MD Active CHLORASEPTIC MAX SORE THROAT 15-10 MG MOUTH/THROAT LOZENGE 1 every 2 hours prn BENZOCAINE-MENTHOL 81498486832 No Longer Active Arie Casper MD Active PREDNISONE 20 MG ORAL TABLET 2 tabs daily for 3 days, 1 tab daily for 3 days, 1/2 tab daily for 2 days PREDNISONE 04917258554 No Longer Active Jose Zhong MD Active AZITHROMYCIN 250 MG ORAL TABLET 2 po qd x 1 day, then 1 po q d x 4 days AZITHROMYCIN 73173621892 No Longer Active Jose Mcwilliams MD Active ZOFRAN ODT 4 MG ORAL TABLET DISINTEGRATING 1 po q6hr PRN Nausea ONDANSETRON 35535098893 No Longer Active Rich Rosales MD Active ZOFRAN 4 MG ORAL TABLET 1 tablet every 4 hours ONDANSETRON HCL 69971037843 No Longer Active Rich Rosales MD Activ e MUCINEX 600 MG ORAL TABLET EXTENDED RELEASE 12 HOUR Ta ke 1-2 tablets every 12 hours GUAIFENESIN 29599341551 No Longer Active Rich Rosales MD Active BACTRIM 400-80 MG ORAL TABLET take one po BID SULFAMETHOXAZOLE-TRIMETHOPRIM 52196350075 No Longer Active Abelardo HERNANDEZ Active AZITHROMYCIN 500 MG ORAL TABLET 1 PO q day x 6 days 20 03/02/23 AZITHROMYCIN 26657778930 No Longer Active Tin HERNANDEZ Activ e ZITHROMAX 250 MG ORAL TABLET 2 po today, then 1 po q days 2-5 20 10/03/08 AZITHROMYCIN 97164054723 No Longer Active Arie Casper MD Active ZITHROMAX 250 MG ORAL TABLET 2 po today, then 1 po q days 2-5 20 09/23/25 AZITHROMYCIN 15291616270 No Longer Active Arie Casper MD Active AMOXICILLIN 500 MG ORAL CAPSULE 1 tab by mouth 3 times daily 201 11/24/09 AMOXICILLIN 94104136843 No Longer Active Arie Casper MD Active BACTRIM DS 800-160 MG ORAL TABLET 1 tab by mouth twice daily 201 11/03/14 TRIMETHOPRIM-SULFAMETHOXAZOLE 79637015063 No Longer Active Fozia Casper MD Active AMOXICILLIN 500 MG ORAL TABLET take 1 tab po TID 08/05 AMOXICILLIN 97478881274 No Longer Active Arie Casper MD Acti [...] 4 hours ZOFRAN 4 MG ORAL TABLET 505576 ONDANSETRON HCL Inactive ZOFRAN ODT 4 MG [...] COLD/COUGH DAY/NITE MS 5-2-10-325 MG ORA L [id number] Inactive [facility] TUSSIN COUGH/COLD CF 5-10-100 MG/5ML ORAL LIQUID 2 teasp oons every 4 hours [facility] TUSSIN COUGH/COLD CF 5-10-100 MG/5ML ORAL LI QUID [id number] Inactive IBUPROFEN 800 MG ORAL TABLET take one po Q 8 hours 201 02/01/16 IBUPROFEN 800 MG ORAL TABLET IBUPROFEN Inactive VITAMINS 0.8 MG ORAL TABLET take 1 tab po qday VITAMINS 0.8 MG ORAL TABLET [id number] E-FA Inactive TESSALON PERLES 100 MG ORAL CAPSULE 1 tablet by mouth 3 times da cory TESSALON PERLES 100 MG ORAL CAPSULE 748112 BENZONATATE Inactive AMOXICILLIN 500 MG ORAL CAPSULE 1 tab by mouth 3 times daily 201 02/21/05 AMOXICILLIN 500 MG ORAL CAPSULE 631944 AMOXICILLIN Inactive GUAIFENESIN-CODEINE 100-10 MG/5ML ORAL SYRUP 2 tsp every 6 hours prn GUAIFENESIN-CODEINE 100-10 MG/5ML ORAL SYRUP 245544 GUAIFENESIN-CODEINE Inactive VICKS DAYQUIL SEVERE COLD/FLU TABLET 1 tab every 6 hours prn 201 02/22/17 VICKS DAYQUIL SEVERE COLD/FLU TABLET PHENYLEPHRI MQ-IQ-MC-APAP TABS Inactive BACTRIM DS 800-160 MG ORAL TABLET 1 twice a day 05/30 BACTRIM DS 800-160 MG ORAL TABLET 285571 SULFAMETHOXAZOLE-TRIMETHOPRIM Inactiv e PROMETHAZINE HCL 25 MG ORAL TABLET 1 four times a day as nee ded for vomiting PROMETHAZINE HCL 25 MG ORAL TABLET 622655 PROMETHAZINE HCL Inactive ZYRTEC ALLERGY 10 MG ORAL CAPSULE 1 po qd ZYRTEC ALLERGY 10 MG ORAL CAPSULE CETIRIZINE HCL Inactive MACROBID 100 MG ORAL CAPSULE 1 cap by mouth twice daily MACROBID 100 MG ORAL CAPSULE 2732504 NITROFURANTOIN MONOHYD MACRO In active LOMOTIL 2.5-0.025 MG ORAL TABLET 1 to 2 four times a day as needed for diarrhea LOMOTIL 2.5-0.025 MG ORAL TABLET 6542098 DIPHENOXYLATE-ATROPINE Inactive CYCLOBENZAPRINE HCL 10 MG ORAL TABLET 1/2 - 1 tablet b y mouth three times daily as needed for muscle spasm/pain CYCLOBEN ZAPRINE HCL 10 MG ORAL TABLET 352898 CYCLOBENZAPRINE HCL Inactive AMOXICILLIN 500 MG ORAL TABLET 2 tabs twice a day for 10 days 20 07/09/11 AMOXICILLIN 500 MG ORAL TABLET 612837 AMOXICILLIN I nactive LOMOTIL 2.5-0.025 MG ORAL TABLET 1 to 2 four times a day as needed for diarrhea LOMOTIL 2.5-0.025 MG ORAL TABLET 0137169 DIPHENOXYLATE-ATROPINE Inactive ZOFRAN 4 MG ORAL TABLET 1 TAB PO Q 6 HRS PRN NAUSEA 20 07/10/15 ZOFRAN 4 MG ORAL TABLET 130620 ONDANSETRON HCL Inactive CITRATE OF MAGNESIA ORAL SOLUTION 1 bottle today for constipatio n CITRATE OF MAGNESIA ORAL SOLUTION 5544985 MAGNESIUM CITR ATE Inactive PROMETHAZINE HCL 12.5 MG ORAL TABLET 1 tablet by mouth every 6 hours as needed for nausea/vomiting PROMETHAZINE HCL 12.5 MG ORA L TABLET 476239 PROMETHAZINE HCL Inactive PREDNISONE 20 MG ORAL TABLET 1 tablet twice daily for 2 days, then 1 tablet once daily for 2 days PREDNISONE 20 MG ORAL TABLET 253938 PREDNISONE Inactive ALPRAZOLAM 0.25 MG ORAL TABLET 1 tablet by mouth every 8 hours as needed for stress ALPRAZOLAM 0.25 MG ORAL TABLET 476819 ALPRA ZOLAM Inactive FLONASE 50 MCG/ACT NASAL SUSPENSION 1 spray each nostr il twice daily for allergies and runny nose until gone FLON ASE 50 MCG/ACT NASAL SUSPENSION FLUTICASONE PROPIONATE Inactive PREDNISONE 20 MG ORAL TABLET 1 tablet daily for airway inflammat ion PREDNISONE 20 MG ORAL TABLET 999736 PREDNISONE [place] ctive NAPROXEN 500 MG ORAL TABLET Take 1 tab BID NAPROXEN 500 MG ORAL TABLET 374006 NAPROXEN Inactive ZOLOFT 50 MG ORAL TABLET 1 tablet by mouth daily 12/08 ZOLOFT 50 MG ORAL TABLET 254765 SERTRALINE HCL Inactive LOMOTIL 2.5-0.025 MG ORAL TABLET 1 tab po four times a day as needed for diarrhea LOMOTIL 2.5-0.025 MG ORAL TABLET 0074036 DIPHENOXYLATE-ATROPINE Inactive CETIRIZINE HCL 10 MG ORAL TABLET 1 po qd PRN Allergies CETIRIZINE HCL 10 MG ORAL TABLET 4910659 CETIRIZINE HCL Inactiv e TUSSIONEX PENNKINETIC ER 10-8 MG/5ML ORAL SUSPENSION E XTENDED RELEASE 5ml po q12hr PRN Cough TUSSIONEX PENNKINETI C ER 10-8 MG/5ML ORAL SUSPENSION EXTENDED RELEASE HYDROCOD POLST-CHLORPHEN POLST I nactive NEXPLANON IMPLANT right arm subcutaneously NEXPLANON IMPLANT ETONOGESTREL IMPL Inactive PROTONIX 40 MG ORAL TABLET DELAYED RELEASE 1 po q a.m. PROTONIX 40 MG ORAL TABLET DELAYED RELEASE 130338 PANTOPRAZOLE SODI UM Inactive CHERATUSSIN AC 100-10 MG/5ML ORAL SYRUP 1 tsp by mouth every 4 hours as needed for cough CHERATUSSIN AC 100-10 MG/5ML ORAL SYRUP 9 94450 GUAIFENESIN-CODEINE Inactive GUAIFENESIN DM 400-20 MG ORAL [...] tid K EFLEX 500 MG ORAL CAPSULE 337821 CEPHALEXIN Inactive DIFLUCAN 100 MG ORAL TABLET 1 tablet by mouth daily, R EPEAT 2ND DOSE IN 7 DAYS IF STILL SYMPTOMATIC DIFLUCAN 100 MG ORAL TABLET 49193 8 FLUCONAZOLE Inactive PROTONIX 40 MG ORAL TABLET DELAYED RELEASE 1 pill by m outh daily, for acid reflux PROTONIX 40 MG ORAL TABLET DELAYED RELEAS E 036032 PANTOPRAZOLE SODIUM Inactive ALPRAZOLAM 0.25 MG ORAL TABLET 1 tablet by mouth twice a day as needed for stress/anxiety ALPRAZOLAM 0.25 MG ORAL TABLET 716336 ALPRAZOLAM Inactive ESCITALOPRAM OXALATE 10 MG ORAL TABLET take 1 tab po qhs for mod ESCITALOPRAM OXALATE 10 MG ORAL TABLET 982022 ESCITALOP JO OXALATE Inactive AMOXICILLIN 500 MG ORAL TABLET take 1 tab po TID 08/05 AMOXICILLIN 500 MG ORAL TABLET 753006 AMOXICILLIN Inactive AMOXICILLIN 500 MG ORAL CAPSULE 1 tab by mouth 3 times daily 201 11/24/09 AMOXICILLIN 500 MG ORAL CAPSULE 585014 AMOXICILLIN Inactive ZITHROMAX 250 MG ORAL TABLET 2 po today, then 1 po q days 2-5 20 09/23/25 ZITHROMAX 250 MG ORAL TABLET 206442 AZITHROMYCIN [place] ctive ZITHROMAX 250 MG ORAL TABLET 2 po today, then 1 po q days 2-5 20 10/03/08 ZITHROMAX 250 MG ORAL TABLET 278089 AZITHROMYCIN [place] ctive AZITHROMYCIN 500 MG ORAL TABLET 1 PO q day x 6 days 03/02/23 AZITHROMYCIN 500 MG ORAL TABLET 7335177 AZITHROMYCIN Inactive BACTRIM 400-80 MG ORAL TABLET take one po BID BACTRIM 400- 80 MG ORAL TABLET 696349 SULFAMETHOXAZOLE-TRIMETHOPRIM Inactive AZITHROMYCIN 250 MG ORAL TABLET 2 po qd x 1 day, then 1 po q d x 4 days AZITHROMYCIN 250 MG ORAL TABLET 140816 AZITHROMY ALLISON Inactive PREDNISONE 20 MG ORAL TABLET 2 tabs daily for 3 days, 1 tab daily for 3 days, 1/2 tab daily for 2 days PREDNISONE 20 MG ORAL T ABLET 570014 PREDNISONE Inactive ZITHROMAX 250 MG ORAL TABLET 2 po today, then 1 po q days 2-5 20 06/08/16 ZITHROMAX 250 MG ORAL TABLET 218666 AZITHROMYCIN [place] ctive FLAGYL 500 MG ORAL TABLET 1 tablet by mouth two times daily 2014 FLAGYL 500 MG ORAL TABLET 334214 METRONIDAZOLE Inacti ve AUGMENTIN 875-125 MG ORAL TABLET 1 tab by mouth twice daily with food AUGMENTIN 875-125 MG ORAL TABLET 814693 AMOXICIL ELSA-POT CLAVULANATE Inactive NAPROXEN 500 MG ORAL TABLET one tab PO BID NAPROXEN 500 MG ORAL TABLET 249303 NAPROXEN Inactive PREDNISONE 20 MG ORAL TABLET 2 tabs daily for 3 days, 1 tab daily for 3 days, 1/2 tab daily for 2 days PREDNISONE 20 MG ORAL T ABLET 025261 PREDNISONE Inactive AZITHROMYCIN 250 MG ORAL TABLET 2 po qd x 1 day, then 1 po q d x 4 days AZITHROMYCIN 250 MG ORAL TABLET 441886 AZITHROMY ALLISON Inactive PREDNISONE 20 MG ORAL TABLET 2 tabs daily for 3 days, 1 tab daily for 3 days, 1/2 tab daily for 2 days PREDNISONE 20 MG ORAL T ABLET 224545 PREDNISONE Inactive ZITHROMAX Z-EMIL 250 MG ORAL TABLET 2 today, then 1 daily for 4 d ays ZITHROMAX Z-EMIL 250 MG ORAL TABLET 213652 AZITHROMYCIN Inactive CEFDINIR 300 MG ORAL CAPSULE 1 po BID x 10 days 12/18 CEFDINIR 300 MG ORAL CAPSULE 260153 CEFDINIR Inactive CEFDINIR 300 MG ORAL CAPSULE 1 po BID x 10 days CEFDINIR 300 MG ORAL CAPSULE 140594 CEFDINIR Inactive PREDNISONE 20 MG ORAL TABLET 2 tabs daily for 3 days, 1 tab daily for 3 days, 1/2 tab daily for 2 days PREDNISONE 20 MG ORAL T ABLET 407725 PREDNISONE Inactive BACTRIM DS 800-160 MG ORAL TABLET 1 tab by mouth twice daily 201 05/02/30 BACTRIM DS 800-160 MG ORAL TABLET 458586 TRIMETHOPRIM-SULFAMETHOXAZOLE Inactive ZITHROMAX Z-EMIL 250 MG ORAL TABLET 2 today, then 1 daily for 4 d ays ZITHROMAX Z-EMIL 250 MG ORAL TABLET 170011 AZITHROMYCIN Inactive TAMIFLU 75 MG ORAL CAPSULE 1 po BID x 5 days 0 TAMIFLU 75 MG ORAL CAPSULE 741809 OSELTAMIVIR PHOSPHATE Inactive CEFDINIR 300 MG ORAL CAPSULE 1 po BID x 10 days 01/03 CEFDINIR 300 MG ORAL CAPSULE 627918 CEFDINIR Inactive ZITHROMAX Z-EMIL 250 MG TABS Take two tablets today and then 1 tablet daily for 4 days ZITHROMAX Z-EMIL 250 MG TABS 085530 AZITHROM YCIN Inactive AMOXICILLIN 875 MG ORAL TABLET 1 tab by mouth twice daily AMOXICILLIN 875 MG ORAL TABLET 873384 AMOXICILLIN Inactive Advance Directives Directive Description Start [...] 11 .0-15.0 platelet count 280 THOUSAND/UL 10*3/mm3 530-899 5496/02/18 mean platelet volume 11.6 fL 7.5-12.5 Lab [...] mg/dL Encounters Code Encounter Date Provider Facility CPT-71900 Level 4 Est. Patient 16:18:17 MEDICAL RECEPTIONIST BILLER Myrna maldonado MD [facility] CPT-11989 Level 4 Est. Patient 16:39:44 MEDICAL RECEPTIONIST BILLER Jose Zhong MD [facility] CPT-48845 [id number] Vst-Est Level IV 13:45:[address] Tali Devi PA-C [facility] CPT-98247 [id number] Vst-Est Level III 09:41:31 CDT Arie Casper MD [facility] CPT-38433 [id number] Vst-Est Level III 18:20:11 CDT Me lobito Russ [facility] CPT-84007 [id number] Vst-Est Level III 17:21:41 CDT Me lobito Russ [facility]-30281 65850-Iik Vst-Est Level IV 13:30:22 C NIC Casper MD [facility] CPT-51632 Level 4 Est. Patient 13:05:26 CDT Myrna maldonado MD [facility]-10965 07100-Xqn Vst-Est Level IV 20:50:21 C NIC Casper MD [facility] CPT-05723 Level 3 Est. Patient 11:49:34 MEDICAL RECEPTIONIST BILLER Jessica boyd [facility] CPT-49224 Level 3 Est. Patient 14:55:50 MEDICAL RECEPTIONIST BILLER Jose Zhong MD [facility] CPT-27490 Level 3 Est. Patient 10:21:41 MEDICAL RECEPTIONIST BILLER Arie mcqueen MD [facility] CPT-50688 Level 3 Est. Patient 11:35:15 MEDICAL RECEPTIONIST BILLER Arie mcqueen MD [facility] CPT-07480 Level 3 Est. Patient 15:40:28 CDT Brii Are [facility] CPT-70692 Level 3 Est. Patient 16:40:36 CDT Arie mcqueen MD [facility] CPT-31195 Level 4 Est. Patient 15:29:22 MEDICAL RECEPTIONIST BILLER Arie mcqueen MD [facility] CPT-33907 Level 3 Est. Patient 15:18:16 MEDICAL RECEPTIONIST BILLER Jnoo black DO [facility] CPT-55546 Level 4 Est. Patient 12:08:40 MEDICAL RECEPTIONIST BILLER Brii Are [facility] CPT-92094 Level 3 Est. Patient 09:24:42 CDT Brii Are [facility] CPT-92241 Level 3 Est. Patient 09:12:56 CDT Arie mcqueen MD [facility] CPT-13895 Level 3 Est. Patient 16:40:54 CDT Jose Zhong MD [facility] CPT-24029 Level 2 Est. Patient 13:01:13 CDT Brii Are ll V BELT BUILDER [facility] CPT-12635 Level 3 Est. Patient 11:55:30 MEDICAL RECEPTIONIST BILLER Jono black DO [facility] CPT-51272 Level 3 Est. Patient 09:52:36 MEDICAL RECEPTIONIST BILLER Brii Are ll [facility] CPT-60633 Level 3 Est. Patient 16:25:33 MEDICAL RECEPTIONIST BILLER Rich Rosales MD [facility] CPT-43161 Level 3 Est. Patient 20:33:55 CDT Arie mcqueen MD [facility] CPT-94928 Level 3 Est. Patient 14:18:20 CDT Rich Rosales MD [facility] CPT-45736 Level 4 Est. Patient 09:34:31 CDT Arie mcqueen MD [facility] CPT-94367 Level 3 Est. Patient 09:08:55 MEDICAL RECEPTIONIST BILLER Liliana vincent MD [facility]-46328 Level 3 Est. Patient 16:44:07 MEDICAL RECEPTIONIST BILLER Arie mcqueen MD [facility] CPT-96274 Level 3 Est. Patient 10:44:27 CDT Arie mcqueen MD [facility] CPT-84654 Level 3 Est. Patient 08:55:41 CDT Jose Zhong MD [facility] CPT-84689 Level 3 Est. Patient 18:37:31 CDT Liliana vincent MD [facility] CPT-37832 Level 3 Est. Patient 14:28:23 CDT Abelardo HERNANDEZ [facility] CPT-28478 Level 3 Est. Patient 15:18:13 MEDICAL RECEPTIONIST BILLER Arie mcqueen MD [facility] CPT-74941 Level 3 Est. Patient 10:11:29 MEDICAL RECEPTIONIST BILLER Arie mcqueen MD [facility] CPT-35405 Level 3 Est. Patient 10:55:57 MEDICAL RECEPTIONIST BILLER Jono black DO [facility] CPT-96903 Level 3 Est. Patient 17:29:05 CDT Arie mcqueen MD [facility] Procedures Code Procedure Name Date Entry Date Standard Desc ription CPT-10578 Sono OB transvag XRAY USE ONLY 17:12:53 CS T CPT-63788 Sono OB transvag XRAY USE ONLY 17:11:12 CS T CPT-35654 UHCG Urine - MARC ONLY 12:13:59 MEDICAL RECEPTIONIST BILLER 12/11 CPT-20390 Spec Collection and Handling Fee 12:13:[address] CPT-18291 Visit 12:13:59 MEDICAL RECEPTIONIST BILLER CPT-38384 First Vx - Ix admin via ID I M or jet injects without counseling by physician 13:00:15 MEDICAL RECEPTIONIST BILLER CPT-09580 Flulaval Intramuscular Injectable 13:00:15 MEDICAL RECEPTIONIST BILLER CPT-05494 Urine Dip (Floor Use Only) 12:20:20 MEDICAL RECEPTIONIST BILLER 201 06/03/24 CPT-36282 Sono Soft Tissue Head and Neck - XRAY US E ONLY 17:10:14 CDT CPT-79907 Ear Wash with irrigation 17:21:41 CDT 07/04 CPT-56379 Nexplanon Removal 15:40:28 CDT CPT-05206 Sono transvag pelvis non OB uterus ovari es cervix - XRAY USE ONLY 08:58:14 [employer] CPT-37547 UA w micro - LAB USE ONLY 16:04:56 [employer] 2015 CPT-51659 Wet Prep/GEN - LAB USE ONLY 16:04:56 [employer] 20 08/10/29 CPT-78261 First Vx - Ix admin via ID I M or jet injects without counseling by physician 16:57:10 CDT CPT-69450 Fluzone Preservative Free Intramuscular Suspension 16:57:10 CDT CPT-J0696 Rocephin 1000 mg (Ceftriaxone) 11:49:23 CDT CPT-J1040 Depo Medrol 80 mg (Methyl Prednisolone A cetate) 11:49:23 CDT CPT-J1100 Decadron 8mg (Dexamethasone) 11:49:23 CDT 2 CPT-78790 Abx/Therapy Injection 11:49:23 CDT CPT-00322 Abx/Therapy Injection 11:49:23 CDT CPT-65115 Abd compl w upright 09:07:26 [employer] CPT-96065 Ear Wash 16:12:47 [employer] CPT-OV Office Visit 11:12:01 CDT CPT-OV Office Visit 15:30:23 CDT CPT-82315 Sono pelvis non OB uterus ovaries cervix 15:50:44 CDT CPT-03343 Hand comp min 3V 16:42:32 CDT CPT-79716 Abd compl w upright 12:17:01 CDT CPT-59937 Nexplanon Placement 15:07:39 [employer] CPT-74371 Removal of IUD 15:07:39 [employer] CPT-16219 TB Tubersol 12:09:32 CDT CPT-00320 TB Tubersol 13:55:43 CDT
--- OUTSIDE RECORDS SUMMARY | 2020-03-03 06:50 | XMS REPORT | Clinical Summary ---
Author Author Dena, Diamante Marcelo Organization [employer] [facility] [employer] [facility] Address Unknown Phone Unavailable Allergies, Adverse Reactions, [...] pain, right lower quadrant 789.03 Resolved Jose Zhnog MD Abdominal pain, right lower quadrant Urinary frequency 788.41 Inactive Roseann Crawford, [facility] Urinary frequency Urinary frequency 788.41 Resolved Jose [...] Vaccination for Prophylaxis V04.81 Inactive Brii Russ SWITCH FOREMAN Need for prophylactic vaccin ation and inoculation [...] 3-4 times per day 12/11 PYRIDOXINE HCL 74750388069 Active Myrna Roberto MD Active UNISOM SLEEPTABS 25 MG ORAL TABLET one tab PO qhs DOXYLAMINE SUCCINATE (SLEEP) 05129274622 Active Myrna Roberto MD Active TYLENOL 325 MG ORAL CAPSULE PRN ACETAMINOPHEN 000 10203764 Active Brii Pacheco Active ESCITALOPRAM OXALATE 10 MG ORAL TABLET take 1 tab po qhs for mod ESCITALOPRAM OXALATE 15115654570 No Longer Active Brii Pacheco Active ALPRAZOLAM 0.25 MG ORAL TABLET 1 tablet by mouth twice a day as needed for stress/anxiety ALPRAZOLAM 50047938194 No Longer Active Brii Pacheco Active PROTONIX 40 MG ORAL TABLET DELAYED RELEASE 1 pill by m outh daily, for acid reflux PANTOPRAZOLE SODIUM 91298321843 No Longer Activ e Brii Tara Active DIFLUCAN 100 MG ORAL TABLET 1 tablet by mouth daily, R EPEAT 2ND DOSE IN 7 DAYS IF STILL SYMPTOMATIC FLUCONAZOLE 36349365268 No Long er Active Nilam Weber Active KEFLEX 500 MG ORAL CAPSULE 1 po tid CEPHALEXI N 09446502106 No Longer Active Tali Devi PA-C Active CONCEPT DHA 53.5-38-1 MG ORAL CAPSULE 1 tablet daily [id number]-[id number]-FA-OMEGA 3 85559987278 Active Oxana Souza 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[employer] 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 AMOXICILLIN 875 MG ORAL TABLET 1 tab by mouth twice daily 1 AMOXICILLIN 79830738912 No Longer Active Brii Russ SWITCH FOREMAN Active TUSSIONEX PENNKINETIC ER 10-8 MG/5ML ORAL SUSPENSION E XTENDED RELEASE 5ml po q12hr PRN Cough HYDROCOD POLST-CHLORPHEN POLST 5 7506534994 No Longer Active Myrna Roberto MD Active ZITHROMAX Z-EMIL 250 MG TABS Take two tablets today and then 1 tablet daily for 4 days AZITHROMYCIN 82220683562 No Longer Active Flaco Rosales MD Active GUAIFENESIN DM 400-20 MG ORAL TABLET 1 pill by mouth t wice daily, if needed for cough DEXTROMETHORPHAN-GUAIFENESIN 76789563894 No Longer Active Rich Rosales MD Active CEFDINIR 300 MG ORAL CAPSULE 1 po BID x 10 days CEFDINIR 37250234503 No Longer Active Jessica Heaton SWITCH FOREMAN Active CHERATUSSIN AC 100-10 MG/5ML ORAL SYRUP 1 tsp by mouth every 4 hours as needed for cough GUAIFENESIN-CODEINE 15660726015 No Longe r Active Jessica Heaton SWITCH FOREMAN Active TAMIFLU 75 MG ORAL CAPSULE 1 po BID x 5 days 0 OSELTAMIVIR PHOSPHATE 11498345936 No Longer Active Jose Zhong MD Activ e ZITHROMAX Z-EMIL 250 MG ORAL TABLET 2 today, then 1 daily for 4 d ays AZITHROMYCIN 27339871538 No Longer Active Arie Casper MD Active PROTONIX 40 MG ORAL TABLET DELAYED RELEASE 1 po q a.m. PANTOPRAZOLE SODIUM 06042573053 No Longer Active Arie Casper MD Active BACTRIM DS 800-160 MG ORAL TABLET 1 tab by mouth twice daily 201 05/02/30 TRIMETHOPRIM-SULFAMETHOXAZOLE 86258091911 No Longer Active R KELLIE Sandoval Active NEXPLANON IMPLANT right arm subcutaneously ETONOGESTREL IMPL 09797311719 No Longer Active Brii Russ SWITCH FOREMAN Active TUSSIONEX PENNKINETIC ER 10-8 MG/5ML ORAL SUSPENSION E XTENDED RELEASE 5ml po q12hr PRN Cough HYDROCOD POLST-CHLORPHEN POLST 5 9081494096 No Longer Active Brii Russ APRN Active CETIRIZINE HCL 10 MG ORAL TABLET 1 po qd PRN Allergies CETIRIZINE HCL 32233342196 No Longer Active Brii Russ APRN Activ e PREDNISONE 20 MG ORAL TABLET 2 tabs daily for 3 days, 1 tab daily for 3 days, 1/2 tab daily for 2 days PREDNISONE 55616784549 No Longer Active Arie Casper MD Active LOMOTIL 2.5-0.025 MG ORAL TABLET 1 tab po four times a day as needed for diarrhea DIPHENOXYLATE-ATROPINE 63402541735 No Lo nger Active Arie Casper MD Active ZOLOFT 50 MG ORAL TABLET 1 tablet by mouth daily 12/08 SERTRALINE HCL 58752038446 No Longer Active Arie Casper MD Ac tive NAPROXEN 500 MG ORAL TABLET Take 1 tab BID NAPR OXEN 80346467884 No Longer Active Arie Casper MD Active CEFDINIR 300 MG ORAL CAPSULE 1 po BID x 10 days CEFDINIR 04263012974 No Longer Active Brii Russ APRN Active PREDNISONE 20 MG ORAL TABLET 1 tablet daily for airway inflammat ion PREDNISONE 10621757585 No Longer Active Brii Russ APRN A ctive CEFDINIR 300 MG ORAL CAPSULE 1 po BID x 10 days CEFDINIR 08085023682 No Longer Active Jono Gagnon DO Active FLONASE 50 MCG/ACT NASAL SUSPENSION 1 spray each nostr il twice daily for allergies and runny nose until gone FLUT ICASONE PROPIONATE 67726392123 No Longer Active Jono Gagnon DO Active ALPRAZOLAM 0.25 MG ORAL TABLET 1 tablet by mouth every 8 hours as needed for stress ALPRAZOLAM 44206784346 No Longer Active Jono Gagnon DO Active ZITHROMAX Z-EMIL 250 MG ORAL TABLET 2 today, then 1 daily for 4 d ays AZITHROMYCIN 66223581084 No Longer Active Arie Casper MD Active PREDNISONE 20 MG ORAL TABLET 2 tabs daily for 3 days, 1 tab daily for 3 days, 1/2 tab daily for 2 days PREDNISONE 75253586786 No Longer Active Brii Russ APRN Active PREDNISONE 20 MG ORAL TABLET 1 tablet twice daily for 2 days, then 1 tablet once daily for 2 days PREDNISONE 04983656758 No Longer Active Brii Russ APRN Active PROMETHAZINE HCL 12.5 MG ORAL TABLET 1 tablet by mouth every 6 hours as needed for nausea/vomiting PROMETHAZINE HCL 78900756256 No L onger Active Jono Gagnon DO Active CITRATE OF MAGNESIA ORAL SOLUTION 1 bottle today for constipatio n MAGNESIUM CITRATE 35963617773 No Longer Active Jono Gagnon DO Active ZOFRAN 4 MG ORAL TABLET 1 TAB PO Q 6 HRS PRN NAUSEA 20 07/10/15 ONDANSETRON HCL 19647063944 No Longer Active Brii Russ APRN Acti ve LOMOTIL 2.5-0.025 MG ORAL TABLET 1 to 2 four times a day as needed for diarrhea DIPHENOXYLATE-ATROPINE 54884443948 No Longer Active January Russ APRN Active AMOXICILLIN 500 MG ORAL TABLET 2 tabs twice a day for 10 days 20 07/09/11 AMOXICILLIN 61673505527 No Longer Active Brii Russ APRN Active CYCLOBENZAPRINE HCL 10 MG ORAL TABLET 1/2 - 1 tablet b y mouth three times daily as needed for muscle spasm/pain CYCLOBENZAPRINE HCL 00198907753 No Longer Active Arie Casper MD Active LOMOTIL 2.5-0.025 MG ORAL TABLET 1 to 2 four times a day as needed for diarrhea DIPHENOXYLATE-ATROPINE 58893556516 No Longer Active Fozia Casper MD Active MACROBID 100 MG ORAL CAPSULE 1 cap by mouth twice daily NITROFURANTOIN MONOHYD MACRO 32834343548 No Longer Active Arie Casper MD Active ZYRTEC ALLERGY 10 MG ORAL CAPSULE 1 po qd CE TIRIZINE HCL 17522387183 No Longer Active Arie Casper MD Active AZITHROMYCIN 250 MG ORAL TABLET 2 po qd x 1 day, then 1 po q d x 4 days AZITHROMYCIN 93807054964 No Longer Active Jillina Fra naomi SWITCH FOREMAN Active PREDNISONE 20 MG ORAL TABLET 2 tabs daily for 3 days, 1 tab daily for 3 days, 1/2 tab daily for 2 days PREDNISONE 57392117919 No Longer Active Jillina Frazell SWITCH FOREMAN Active PROMETHAZINE HCL 25 MG ORAL TABLET 1 four times a day as nee ded for vomiting PROMETHAZINE HCL 09163479688 No Longer Active Myrna Roberto MD Active BACTRIM DS 800-160 MG ORAL TABLET 1 twice a day 05/30 SULFAMETHOXAZOLE-TRIMETHOPRIM 81618439739 No Longer Active Myrna Roberto MD Active VICKS DAYQUIL SEVERE COLD/FLU TABLET 1 tab every 6 hours prn 201 02/22/17 [id number]-APAP TABS 22060199458 No Longer Active Chris Roberto MD Active GUAIFENESIN-CODEINE 100-10 MG/5ML ORAL SYRUP 2 tsp every 6 hours prn GUAIFENESIN-CODEINE 26729431816 No Longer Active Myrna Roberto MD Active NAPROXEN 500 MG ORAL TABLET one tab PO BID NAPR OXEN 31678268407 No Longer Active Myrna Roberto MD Active AUGMENTIN 875-125 MG ORAL TABLET 1 tab by mouth twice daily with food AMOXICILLIN-POT CLAVULANATE 17794939549 No Longer Act zaid Estrada MD PhD Active AMOXICILLIN 500 MG ORAL CAPSULE 1 tab by mouth 3 times daily 201 02/21/05 AMOXICILLIN 28827595362 No Longer Active Liliana Estrada MD PhD Active TESSALON PERLES 100 MG ORAL CAPSULE 1 tablet by mouth 3 times da cory BENZONATATE 59991903478 No Longer Active Liliana Estrada MD PhD Active FLAGYL 500 MG ORAL TABLET 1 tablet by mouth two times daily 2014 METRONIDAZOLE 71543860313 No Longer Active Nilam Plattida Ac tive ZITHROMAX 250 MG ORAL TABLET 2 po today, then 1 po q days 2-5 20 06/08/16 AZITHROMYCIN 15800721492 No Longer Active Arie Casper MD Active VITAMINS 0.8 MG ORAL TABLET take 1 tab po qday [id number] 36984445687 No Longer Active Arie Casper MD Active IBUPROFEN 800 MG ORAL TABLET take one po Q 8 hours 201 02/01/16 IBUPROFEN 94860434250 No Longer Active Arie Casper MD Acti ve [facility] TUSSIN COUGH/COLD CF 5-10-100 MG/5ML ORAL LIQUID 2 teasp oons every 4 hours [id number] 23223709018 No Longer Active Blaine Casper MD Active COMTREX COLD/COUGH DAY/NITE MS 5-2-10-325 MG ORAL 2 caps deja ry 4 hours KHRGTASZZ-LGH-IR-APAP 18734569783 No Longer Active Landon Casper MD Active CHLORASEPTIC MAX SORE THROAT 15-10 MG MOUTH/THROAT LOZENGE 1 every 2 hours prn BENZOCAINE-MENTHOL 21419570185 No Longer Active Arie Casper MD Active PREDNISONE 20 MG ORAL TABLET 2 tabs daily for 3 days, 1 tab daily for 3 days, 1/2 tab daily for 2 days PREDNISONE 38843809066 No Longer Active Jose Zhong MD Active AZITHROMYCIN 250 MG ORAL TABLET 2 po qd x 1 day, then 1 po q d x 4 days AZITHROMYCIN 25061359001 No Longer Active Jose Mcwilliams MD Active ZOFRAN ODT 4 MG ORAL TABLET DISINTEGRATING 1 po q6hr PRN Nausea ONDANSETRON 42493473641 No Longer Active Rich Rosales MD Active ZOFRAN 4 MG ORAL TABLET 1 tablet every 4 hours ONDANSETRON HCL 06356755722 No Longer Active Rich Rosales MD Activ e MUCINEX 600 MG ORAL TABLET EXTENDED RELEASE 12 HOUR Ta ke 1-2 tablets every 12 hours GUAIFENESIN 45715947025 No Longer Active Rich Rosales MD Active BACTRIM 400-80 MG ORAL TABLET take one po BID SULFAMETHOXAZOLE-TRIMETHOPRIM 31007882529 No Longer Active Abelardo HERNANDEZ Active AZITHROMYCIN 500 MG ORAL TABLET 1 PO q day x 6 days 20 03/02/23 AZITHROMYCIN 22308199639 No Longer Active Tin HERNANDEZ Activ e ZITHROMAX 250 MG ORAL TABLET 2 po today, then 1 po q days 2-5 20 10/03/08 AZITHROMYCIN 66073162547 No Longer Active Arie Casper MD Active ZITHROMAX 250 MG ORAL TABLET 2 po today, then 1 po q days 2-5 20 09/23/25 AZITHROMYCIN 88801691495 No Longer Active Arie Casper MD Active AMOXICILLIN 500 MG ORAL CAPSULE 1 tab by mouth 3 times daily 201 11/24/09 AMOXICILLIN 00388873823 No Longer Active Arie Casper MD Active BACTRIM DS 800-160 MG ORAL TABLET 1 tab by mouth twice daily 201 11/03/14 TRIMETHOPRIM-SULFAMETHOXAZOLE 75014551386 No Longer Active Fozia Casper MD Active AMOXICILLIN 500 MG ORAL TABLET take 1 tab po TID 08/05 AMOXICILLIN 56626583966 No Longer Active Arie Casper MD Acti ve VICKS DAYQUIL SEVERE COLD/FLU TABLET 1 tab every 6 hours prn 201 02/22/17 VICKS DAYQUIL SEVERE COLD/FLU TABLET PHENYLEPHRI AM-JE-MV-APAP TABS Inactive NEXPLANON IMPLANT right arm subcutaneously NEXPLANON IMPLANT ETONOGESTREL IMPL Inactive ALPRAZOLAM 0.25 MG ORAL TABLET 1 tablet by mouth twice a day as needed for stress/anxiety ALPRAZOLAM 0.25 MG ORAL TABLET 977096 ALPRAZOLAM Inactive ALPRAZOLAM 0.25 MG ORAL TABLET 1 tablet by mouth every 8 hours as needed for stress ALPRAZOLAM 0.25 MG ORAL TABLET 596847 ALPRA ZOLAM Inactive AMOXICILLIN 500 MG ORAL CAPSULE 1 tab by mouth 3 times daily 201 02/21/05 AMOXICILLIN 500 MG ORAL CAPSULE 836275 AMOXICILLIN Inactive AMOXICILLIN 500 MG ORAL CAPSULE 1 tab by mouth 3 times daily 201 11/24/09 AMOXICILLIN 500 MG ORAL CAPSULE 716404 AMOXICILLIN Inactive BACTRIM 400-80 MG ORAL TABLET take one po BID BACTRIM 400- 80 MG ORAL TABLET 854482 SULFAMETHOXAZOLE-TRIMETHOPRIM Inactive BACTRIM DS 800-160 MG ORAL TABLET 1 tab by mouth twice daily 201 05/02/30 BACTRIM DS 800-160 MG ORAL TABLET 649032 TRIMETHOPRIM-SULFAMETHOXAZOLE Inactive BACTRIM DS 800-160 MG ORAL TABLET 1 twice a day 05/30 BACTRIM DS 800-160 MG ORAL TABLET 894212 SULFAMETHOXAZOLE-TRIMETHOPRIM Inactiv e BACTRIM DS 800-160 MG ORAL TABLET 1 tab by mouth twice daily 201 11/03/14 BACTRIM DS 800-160 MG ORAL TABLET 19821226 TRIMETHOPRIM-SULFAMETHOXAZOLE Inactive CHERATUSSIN AC 100-10 MG/5ML ORAL SYRUP 1 tsp by mouth every 4 hours as needed for cough CHERATUSSIN AC 100-10 MG/5ML ORAL SYRUP 9 70491 GUAIFENESIN-CODEINE Inactive CITRATE OF MAGNESIA ORAL SOLUTION 1 bottle today for constipatio n CITRATE OF MAGNESIA ORAL SOLUTION 9409908 MAGNESIUM CITR ATE Inactive CYCLOBENZAPRINE HCL 10 MG ORAL TABLET 1/2 - 1 tablet b y mouth three times daily as needed for muscle spasm/pain CYCLOBEN ZAPRINE HCL 10 MG ORAL TABLET 518861 CYCLOBENZAPRINE HCL Inactive DIFLUCAN 100 MG ORAL TABLET 1 tablet by mouth daily, R EPEAT 2ND DOSE IN 7 DAYS IF STILL SYMPTOMATIC DIFLUCAN 100 MG ORAL TABLET 72957 8 FLUCONAZOLE Inactive FLAGYL 500 MG ORAL TABLET 1 tablet by mouth two times daily 2014 FLAGYL 500 MG ORAL TABLET 507243 METRONIDAZOLE Inacti ve IBUPROFEN 800 MG ORAL TABLET take one po Q 8 hours 201 02/01/16 IBUPROFEN 800 MG ORAL TABLET 792538 IBUPROFEN Inactive KEFLEX 500 MG ORAL CAPSULE 1 po tid K EFLEX 500 MG ORAL CAPSULE 965130 CEPHALEXIN Inactive LOMOTIL 2.5-0.025 MG ORAL TABLET 1 to 2 four times a day as needed for diarrhea LOMOTIL 2.5-0.025 MG ORAL TABLET 8777587 DIPHENOXYLATE-ATROPINE Inactive LOMOTIL 2.5-0.025 MG ORAL TABLET 1 to 2 four times a day as needed for diarrhea LOMOTIL 2.5-0.025 MG ORAL TABLET 5814327 DIPHENOXYLATE-ATROPINE Inactive LOMOTIL 2.5-0.025 MG ORAL TABLET 1 tab po four times a day as needed for diarrhea LOMOTIL 2.5-0.025 MG ORAL TABLET 2398679 DIPHENOXYLATE-ATROPINE Inactive MACROBID 100 MG ORAL CAPSULE 1 cap by mouth twice daily MACROBID 100 MG ORAL CAPSULE 4771200 NITROFURANTOIN MONOHYD MACRO In active NAPROXEN 500 MG ORAL TABLET Take 1 tab BID NAPROXEN 500 MG ORAL TABLET 19791027 NAPROXEN Inactive NAPROXEN 500 MG ORAL TABLET one tab PO BID NAPROXEN 500 MG ORAL TABLET 19791027 NAPROXEN Inactive PREDNISONE 20 MG ORAL TABLET 2 tabs daily for 3 days, 1 tab daily for 3 days, 1/2 tab daily for 2 days PREDNISONE 20 MG ORAL T ABLET 653752 PREDNISONE Inactive PREDNISONE 20 MG ORAL TABLET 2 tabs daily for 3 days, 1 tab daily for 3 days, 1/2 tab daily for 2 days PREDNISONE 20 MG ORAL T ABLET 532371 PREDNISONE Inactive PREDNISONE 20 MG ORAL TABLET 2 tabs daily for 3 days, 1 tab daily for 3 days, 1/2 tab daily for 2 days PREDNISONE 20 MG ORAL T ABLET 674161 PREDNISONE Inactive PREDNISONE 20 MG ORAL TABLET 2 tabs daily for 3 days, 1 tab daily for 3 days, 1/2 tab daily for 2 days PREDNISONE 20 MG ORAL T ABLET 709259 PREDNISONE Inactive PREDNISONE 20 MG ORAL TABLET 1 tablet daily for airway inflammat ion PREDNISONE 20 MG ORAL TABLET 596657 PREDNISONE [place] ctive PREDNISONE 20 MG ORAL TABLET 1 tablet twice daily for 2 days, then 1 tablet once daily for 2 days PREDNISONE 20 MG ORAL TABLET 897511 PREDNISONE Inactive PROMETHAZINE HCL 12.5 MG ORAL TABLET 1 tablet by mouth every 6 hours as needed for nausea/vomiting PROMETHAZINE HCL 12.5 MG ORA L TABLET 905880 PROMETHAZINE HCL Inactive PROMETHAZINE HCL 25 MG ORAL TABLET 1 four times a day as nee ded for vomiting PROMETHAZINE HCL 25 MG ORAL TABLET 440697 PROMETHAZINE HCL Inactive ZOFRAN 4 MG ORAL TABLET 1 tablet every 4 hours ZOFRAN 4 MG ORAL TABLET 441345 ONDANSETRON HCL Inactive ZOFRAN 4 MG ORAL TABLET 1 TAB PO Q 6 HRS PRN NAUSEA 07/10/15 ZOFRAN 4 MG ORAL TABLET 012894 ONDANSETRON HCL Inactive ZOLOFT 50 MG ORAL TABLET 1 tablet by mouth daily 12/08 ZOLOFT 50 MG ORAL TABLET 408687 SERTRALINE HCL Inactive CETIRIZINE HCL 10 MG ORAL TABLET 1 po qd PRN Allergies CETIRIZINE HCL 10 MG ORAL TABLET 8310970 CETIRIZINE HCL Inactiv e TESSALON PERLES 100 MG ORAL CAPSULE 1 tablet by mouth 3 times da cory TESSALON PERLES 100 MG ORAL CAPSULE 392516 BENZONATATE Inactive AUGMENTIN 875-125 MG ORAL TABLET 1 tab by mouth twice daily with food AUGMENTIN 875-125 MG ORAL TABLET 302048 AMOXICIL ELSA-POT CLAVULANATE Inactive AMOXICILLIN 500 MG ORAL TABLET take 1 tab po TID 08/05 AMOXICILLIN 500 MG ORAL TABLET 871655 AMOXICILLIN Inactive AMOXICILLIN 500 MG ORAL TABLET 2 tabs twice a day for 10 days 20 07/09/11 AMOXICILLIN 500 MG ORAL TABLET 100197 AMOXICILLIN I nactive AZITHROMYCIN 500 MG ORAL TABLET 1 PO q day x 6 days 20 03/02/23 AZITHROMYCIN 500 MG ORAL TABLET 0956813 AZITHROMYCIN Inactive ZITHROMAX 250 MG ORAL TABLET 2 po today, then 1 po q days 2-5 20 09/23/25 ZITHROMAX 250 MG ORAL TABLET 510936 AZITHROMYCIN [place] ctive ZITHROMAX 250 MG ORAL TABLET 2 po today, then 1 po q days 2-5 20 10/03/08 ZITHROMAX 250 MG ORAL TABLET 813692 AZITHROMYCIN [place] ctive ZITHROMAX 250 MG ORAL TABLET 2 po today, then 1 po q days 2-5 20 06/08/16 ZITHROMAX 250 MG ORAL TABLET 644521 AZITHROMYCIN [place] ctive AZITHROMYCIN 250 MG ORAL TABLET 2 po qd x 1 day, then 1 po q d x 4 days AZITHROMYCIN 250 MG ORAL TABLET 119862 AZITHROMY ALLISON Inactive AZITHROMYCIN 250 MG ORAL TABLET 2 po qd x 1 day, then 1 po q d x 4 days AZITHROMYCIN 250 MG ORAL TABLET 365145 AZITHROMY ALLISON Inactive CEFDINIR 300 MG ORAL CAPSULE 1 po BID x 10 days 01/03 CEFDINIR 300 MG ORAL CAPSULE 866810 CEFDINIR Inactive CEFDINIR 300 MG ORAL CAPSULE 1 po BID x 10 days 12/18 CEFDINIR 300 MG ORAL CAPSULE 20030127 CEFDINIR Inactive CEFDINIR 300 MG ORAL CAPSULE 1 po BID x 10 days CEFDINIR 300 MG ORAL CAPSULE 137795 CEFDINIR Inactive AMOXICILLIN 875 MG ORAL TABLET 1 tab by mouth twice daily 1 AMOXICILLIN 875 MG ORAL TABLET 975701 AMOXICILLIN Inactive ZOFRAN ODT 4 MG ORAL TABLET DISINTEGRATING 1 po q6hr PRN Nausea ZOFRAN ODT 4 MG ORAL TABLET DISINTEGRATING ONDAN SETRON Inactive TAMIFLU 75 MG ORAL CAPSULE 1 po BID x 5 days 0 TAMIFLU 75 MG ORAL CAPSULE 665005 OSELTAMIVIR PHOSPHATE Inactive PROTONIX 40 MG ORAL TABLET DELAYED RELEASE 1 pill by m outh daily, for acid reflux PROTONIX 40 MG ORAL TABLET DELAYED RELEAS E 789660 PANTOPRAZOLE SODIUM Inactive PROTONIX 40 MG ORAL TABLET DELAYED RELEASE 1 po q a.m. PROTONIX 40 MG ORAL TABLET DELAYED RELEASE 434335 PANTOPRAZOLE SODI UM Inactive ZITHROMAX Z-EMIL 250 MG ORAL TABLET 2 today, then 1 daily for 4 d ays ZITHROMAX Z-EMIL 250 MG ORAL TABLET 528593 AZITHROMYCIN Inactive ZITHROMAX Z-EMIL 250 MG TABS Take two tablets today and then 1 tablet daily for 4 days ZITHROMAX Z-EMIL 250 MG TABS 840031 AZITHROM YCIN Inactive ZITHROMAX Z-EMIL 250 MG ORAL TABLET 2 today, then 1 daily for 4 d ays ZITHROMAX Z-EMIL 250 MG ORAL TABLET 271943 AZITHROMYCIN Inactive FLONASE 50 MCG/ACT NASAL SUSPENSION 1 spray each nostr il twice daily for allergies and runny nose until gone FLON ASE 50 MCG/ACT NASAL SUSPENSION FLUTICASONE PROPIONATE Inactive ESCITALOPRAM OXALATE 10 MG ORAL TABLET take 1 tab po qhs for mod ESCITALOPRAM OXALATE 10 MG ORAL TABLET 331121 ESCITALOP JO OXALATE Inactive MUCINEX 600 MG ORAL TABLET EXTENDED RELEASE 12 HOUR Ta ke 1-2 tablets every 12 hours MUCINEX 600 MG ORAL TABLET EXTENDED RELEA SE 12 HOUR GUAIFENESIN Inactive COMTREX COLD/COUGH DAY/NITE MS 5-2-10-325 MG ORAL 2 caps deja ry 4 hours COMTREX COLD/COUGH DAY/NITE MS 5-2-10-325 MG ORA L [id number] Inactive GUAIFENESIN-CODEINE 100-10 MG/5ML ORAL SYRUP 2 tsp every 6 hours prn GUAIFENESIN-CODEINE 100-10 MG/5ML ORAL SYRUP 743770 GUAIFENESIN-CODEINE Inactive VITAMINS 0.8 MG ORAL TABLET take 1 tab po qday VITAMINS 0.8 MG ORAL TABLET [id number] E-FA Inactive [facility] TUSSIN COUGH/COLD CF 5-10-100 MG/5ML ORAL LIQUID 2 teasp oons every 4 hours [facility] TUSSIN COUGH/COLD CF 5-10-100 MG/5ML ORAL LI QUID [id number] Inactive ZYRTEC ALLERGY 10 MG ORAL CAPSULE [...] RELEASE 5ml po q12hr PRN Cough TUSSIONEX NATASHATI C ER 10-8 MG/5ML ORAL SUSPENSION EXTENDED RELEASE HYDROCOD POLST-CHLORPHEN POLST I nactive Advance Directives Directive Description Start Date PERMISSION [...] 11 .0-15.0 platelet count 280 THOUSAND/UL 10*3/mm3 292-268 9004/02/18 mean platelet volume 11.6 fL 7.5-12.5 Lab [...] mg/dL Encounters Code Encounter Date Provider Facility CPT-33018 Level 4 Est. Patient 16:18:17 GLASS TOUGHENING OPERATOR Myrna maldonado MD [facility] CPT-98431 Level 4 Est. Patient 16:39:44 GLASS TOUGHENING OPERATOR Jose Zhong MD [facility] CPT-59224 [id number] Vst-Est Level IV 13:45:[address] Tali Devi PA-C [facility] CPT-31815 [id number] Vst-Est Level III 09:41:31 CDT Arie Casper MD [facility] CPT-67882 [id number] Vst-Est Level III 18:20:11 CDT Me lobiot Russ [facility] CPT-89207 [id number] Vst-Est Level III 17:21:41 CDT Me lobito Russ [facility]-91856 [id number] Vst-Est Level IV 13:30:22 C NIC Casper MD [facility] CPT-13411 Level 4 Est. Patient 13:05:26 CDT Myrna maldonado MD [facility]-54282 [id number] Vst-Est Level IV 20:50:21 C NIC Casper MD [facility] CPT-51564 Level 3 Est. Patient 11:49:34 GLASS TOUGHENING OPERATOR Jessica boyd [facility] CPT-22302 Level 3 Est. Patient 14:55:50 GLASS TOUGHENING OPERATOR Jose Zhong MD [facility] CPT-62512 Level 3 Est. Patient 10:21:41 GLASS TOUGHENING OPERATOR Arie mcqueen MD [facility] CPT-64703 Level 3 Est. Patient 11:35:15 GLASS TOUGHENING OPERATOR Arie mcqueen MD [facility] CPT-59320 Level 3 Est. Patient 15:40:28 CDT Brii [facility] CPT-97296 Level 3 Est. Patient 16:40:36 CDT Arie mcqueen MD [facility] CPT-07751 Level 4 Est. Patient 15:29:22 GLASS TOUGHENING OPERATOR Arie mcqueen MD [facility] CPT-78743 Level 3 Est. Patient 15:18:16 GLASS TOUGHENING OPERATOR Jono black DO [facility] CPT-21215 Level 4 Est. Patient 12:08:40 GLASS TOUGHENING OPERATOR Brii [facility] CPT-76875 Level 3 Est. Patient 09:24:42 CDT Brii [facility] CPT-97802 Level 3 Est. Patient 09:12:56 CDT Arie mcqueen MD [facility] CPT-34452 Level 3 Est. Patient 16:40:54 CDT Jose Zhong MD [facility] CPT-99857 Level 2 Est. Patient 13:01:13 CDT Brii Are ll SWITCH FOREMAN [facility] CPT-96842 Level 3 Est. Patient 11:55:30 GLASS TOUGHENING OPERATOR oJno black DO [facility] CPT-96105 Level 3 Est. Patient 09:52:36 GLASS TOUGHENING OPERATOR Brii Are ll [facility] CPT-64901 Level 3 Est. Patient 16:25:33 GLASS TOUGHENING OPERATOR Rich Rosales MD [facility] CPT-12239 Level 3 Est. Patient 20:33:55 CDT Arie mcqueen MD [facility] CPT-60613 Level 3 Est. Patient 14:18:20 CDT Rich Rosales MD [facility] CPT-46232 Level 4 Est. Patient 09:34:31 CDT Arie mcqueen MD [facility] CPT-18459 Level 3 Est. Patient 09:08:55 GLASS TOUGHENING OPERATOR Liliana vincent MD [facility]-41001 Level 3 Est. Patient 16:44:07 GLASS TOUGHENING OPERATOR Arie mcqueen MD [facility] CPT-73617 Level 3 Est. Patient 10:44:27 CDT Arie mcqueen MD [facility] CPT-10695 Level 3 Est. Patient 08:55:41 CDT Jose Zhong MD [facility] CPT-26346 Level 3 Est. Patient 18:37:31 CDT Liliana vincent MD [facility] CPT-40627 Level 3 Est. Patient 14:28:23 CDT Abelardo HERNANDEZ [facility] CPT-41701 Level 3 Est. Patient 15:18:13 GLASS TOUGHENING OPERATOR Arie mcqueen MD [facility] CPT-47447 Level 3 Est. Patient 10:11:29 GLASS TOUGHENING OPERATOR Arie mcqueen MD [facility] CPT-32574 Level 3 Est. Patient 10:55:57 GLASS TOUGHENING OPERATOR Jono black DO [facility] CPT-76363 Level 3 Est. Patient 17:29:05 CDT Arie mcqueen MD [facility] Procedures Code Procedure Name Date Entry Date Standard Desc ription CPT-04862 Sono OB transvag XRAY USE ONLY 17:12:53 CS T CPT-60679 Sono OB transvag XRAY USE ONLY 17:11:12 CS T CPT-11893 UHCG Urine - MARC ONLY 12:13:59 GLASS TOUGHENING OPERATOR 12/11 CPT-51505 Spec Collection and Handling Fee 12:13:[address] CPT-18578 Visit 12:13:59 GLASS TOUGHENING OPERATOR CPT-42277 First Vx - Ix admin via ID I M or jet injects without counseling by physician 13:00:15 GLASS TOUGHENING OPERATOR CPT-90261 Flulaval Intramuscular Injectable 13:00:15 GLASS TOUGHENING OPERATOR CPT-43146 Urine Dip (Floor Use Only) 12:20:20 [employer]ASS TOUGHENING OPERATOR 201 06/03/24 CPT-51547 Sono Soft Tissue Head and Neck - XRAY US E ONLY 17:10:14 CDT CPT-59030 Ear Wash with irrigation 17:21:41 CDT 07/04 CPT-98742 Nexplanon Removal 15:40:28 CDT CPT-56022 Sono transvag pelvis non OB uterus ovari es cervix - XRAY USE ONLY 08:58:14 GLASS TOUGHENING OPERATOR CPT-97747 UA w micro - LAB USE ONLY 16:04:56 GLASS TOUGHENING OPERATOR 2015 CPT-19732 Wet Prep/GEN - LAB USE ONLY 16:04:56 GLASS TOUGHENING OPERATOR 20 08/10/29 CPT-97356 First Vx - Ix admin via ID I M or jet injects without counseling by physician 16:57:10 CDT CPT-34641 Fluzone Preservative Free Intramuscular Suspension 16:57:10 CDT CPT-J0696 Rocephin 1000 mg (Ceftriaxone) 11:49:23 CDT CPT-J1040 Depo Medrol 80 mg (Methyl Prednisolone A cetate) 11:49:23 CDT CPT-J1100 Decadron 8mg (Dexamethasone) 11:49:23 CDT 2 CPT-08704 Abx/Therapy Injection 11:49:23 CDT CPT-55688 Abx/Therapy Injection 11:49:23 CDT CPT-89838 Abd compl w upright 09:07:26 [employer]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
--- OUTSIDE RECORDS SUMMARY | 2020-03-03 06:50 | XMS REPORT | Clinical Summary ---
Author Author Admin, Diamante Marcelo Organization [employer] Address Unknown Phone Unavailable Allergies, Adverse Reactions, [...] Vaccination for Prophylaxis V04.81 Inactive Brii Russ UI DEVELOPER Need for prophylactic vaccin ation and inoculation [...] Jose Zhong MD Dyspareunia ICD-625.0 Inactive Jose Zhnog MD Pelvic pain ICD-789.09 Inactive Jose Zhong [...] 3-4 times per day 12/11 PYRIDOXINE HCL 87048862539 Active Myrna Roberto MD Active UNISOM SLEEPTABS 25 MG ORAL TABLET one tab PO qhs DOXYLAMINE SUCCINATE (SLEEP) 15985594484 Active Myrna Roberto MD Active TYLENOL 325 MG ORAL CAPSULE PRN ACETAMINOPHEN 000 74838401 Active Brii Pacheco Active ESCITALOPRAM OXALATE 10 MG ORAL TABLET take 1 tab po qhs for mod ESCITALOPRAM OXALATE 98847039585 No Longer Active Brii Pacheco Active ALPRAZOLAM 0.25 MG ORAL TABLET 1 tablet by mouth twice a day as needed for stress/anxiety ALPRAZOLAM 07837734143 No Longer Active Brii Pacheco Active PROTONIX 40 MG ORAL TABLET DELAYED RELEASE 1 pill by m outh daily, for acid reflux PANTOPRAZOLE SODIUM 64321949712 No Longer Activ e Brii Tara Active DIFLUCAN 100 MG ORAL TABLET 1 tablet by mouth daily, R EPEAT 2ND DOSE IN 7 DAYS IF STILL SYMPTOMATIC FLUCONAZOLE 13837954829 No Long er Active Nilamnory Plattida Active KEFLEX 500 MG ORAL CAPSULE 1 po tid CEPHALEXI N 44074902877 No Longer Active Tali Devi PA-C Active CONCEPT DHA 53.5-38-1 MG ORAL CAPSULE 1 tablet daily [id number] 3 56849765392 Active Oxana Souza [employer] SPEAKING NANNY Active AMOXICILLIN 875 MG ORAL TABLET 1 tab by mouth twice daily 1 AMOXICILLIN 77287567802 No Longer Active Brii Russ UI DEVELOPER Active TUSSIONEX PENNKINETIC ER 10-8 MG/5ML ORAL SUSPENSION E XTENDED RELEASE 5ml po q12hr PRN Cough HYDROCOD POLST-CHLORPHEN POLST 5 0527524612 No Longer Active Myrna Roberto MD Active ZITHROMAX Z-EMIL 250 MG TABS Take two tablets today and then 1 tablet daily for 4 days AZITHROMYCIN 94086189647 No Longer Active Flaco Rosales MD Active GUAIFENESIN DM 400-20 MG ORAL TABLET 1 pill by mouth t wice daily, if needed for cough DEXTROMETHORPHAN-GUAIFENESIN 55391112354 No Longer Active Rich Rosales MD Active CEFDINIR 300 MG ORAL CAPSULE 1 po BID x 10 days CEFDINIR 22677863136 No Longer Active Jessica Heaton UI DEVELOPER Active CHERATUSSIN AC 100-10 MG/5ML ORAL SYRUP 1 tsp by mouth every 4 hours as needed for cough GUAIFENESIN-CODEINE 42518521886 No Longe r Active Jessica Heaton UI DEVELOPER Active TAMIFLU 75 MG ORAL CAPSULE 1 po BID x 5 days 0 OSELTAMIVIR PHOSPHATE 83650728790 No Longer Active Jose Zhong MD Activ e ZITHROMAX Z-EMIL 250 MG ORAL TABLET 2 today, then 1 daily for 4 d ays AZITHROMYCIN 25448532780 No Longer Active Arie Casper MD Active PROTONIX 40 MG ORAL TABLET DELAYED RELEASE 1 po q a.m. PANTOPRAZOLE SODIUM 10472379468 No Longer Active Arie Casper MD Active BACTRIM DS 800-160 MG ORAL TABLET 1 tab by mouth twice daily 201 05/02/30 TRIMETHOPRIM-SULFAMETHOXAZOLE 32965147036 No Longer Active R KELLIE Sandoval Active NEXPLANON IMPLANT right arm subcutaneously ETONOGESTREL IMPL 86703968348 No Longer Active Brii Russ APRN Active TUSSIONEX PENNKINETIC ER 10-8 MG/5ML ORAL SUSPENSION E XTENDED RELEASE 5ml po q12hr PRN Cough HYDROCOD POLST-CHLORPHEN POLST 5 5530275478 No Longer Active Brii Russ APRN Active CETIRIZINE HCL 10 MG ORAL TABLET 1 po qd PRN Allergies CETIRIZINE HCL 60169227650 No Longer Active Brii Russ APRN Activ e PREDNISONE 20 MG ORAL TABLET 2 tabs daily for 3 days, 1 tab daily for 3 days, 1/2 tab daily for 2 days PREDNISONE 78137519718 No Longer Active Arie Casper MD Active LOMOTIL 2.5-0.025 MG ORAL TABLET 1 tab po four times a day as needed for diarrhea DIPHENOXYLATE-ATROPINE 80664792211 No Lo nger Active Arie Casper MD Active ZOLOFT 50 MG ORAL TABLET 1 tablet by mouth daily 12/08 SERTRALINE HCL 78565142666 No Longer Active Arie Casper MD Ac tive NAPROXEN 500 MG ORAL TABLET Take 1 tab BID NAPR OXEN 28450279413 No Longer Active Arie Casper MD Active CEFDINIR 300 MG ORAL CAPSULE 1 po BID x 10 days CEFDINIR 68706551432 No Longer Active Brii Russ APRN Active PREDNISONE 20 MG ORAL TABLET 1 tablet daily for airway inflammat ion PREDNISONE 86501892923 No Longer Active Brii Russ APRN A ctive CEFDINIR 300 MG ORAL CAPSULE 1 po BID x 10 days CEFDINIR 25980047775 No Longer Active Jono Gagnon DO Active FLONASE 50 MCG/ACT NASAL SUSPENSION 1 spray each nostr il twice daily for allergies and runny nose until gone FLUT ICASONE PROPIONATE 54011051245 No Longer Active Jono Gagnon DO Active ALPRAZOLAM 0.25 MG ORAL TABLET 1 tablet by mouth every 8 hours as needed for stress ALPRAZOLAM 17395750810 No Longer Active Jono Gagnon DO Active ZITHROMAX Z-EMIL 250 MG ORAL TABLET 2 today, then 1 daily for 4 d ays AZITHROMYCIN 44734301993 No Longer Active Arie Casper MD Active PREDNISONE 20 MG ORAL TABLET 2 tabs daily for 3 days, 1 tab daily for 3 days, 1/2 tab daily for 2 days PREDNISONE 25722892616 No Longer Active Briiarnaldo Russ UI DEVELOPER Active PREDNISONE 20 MG ORAL TABLET 1 tablet twice daily for 2 days, then 1 tablet once daily for 2 days PREDNISONE 85165348528 No Longer Active Brii Russ APRN Active PROMETHAZINE HCL 12.5 MG ORAL TABLET 1 tablet by mouth every 6 hours as needed for nausea/vomiting PROMETHAZINE HCL 17085744743 No L onger Active Jono Gagnon DO Active CITRATE OF MAGNESIA ORAL SOLUTION 1 bottle today for constipatio n MAGNESIUM CITRATE 75287057278 No Longer Active Jono Gagnon DO Active ZOFRAN 4 MG ORAL TABLET 1 TAB PO Q 6 HRS PRN NAUSEA 20 07/10/15 ONDANSETRON HCL 52307074923 No Longer Active Brii Russ APRN Acti ve LOMOTIL 2.5-0.025 MG ORAL TABLET 1 to 2 four times a day as needed for diarrhea DIPHENOXYLATE-ATROPINE 46020100901 No Longer Active January Russ APRN Active AMOXICILLIN 500 MG ORAL TABLET 2 tabs twice a day for 10 days 20 07/09/11 AMOXICILLIN 34175867151 No Longer Active Brii Russ APRN Active CYCLOBENZAPRINE HCL 10 MG ORAL TABLET 1/2 - 1 tablet b y mouth three times daily as needed for muscle spasm/pain CYCLOBENZAPRINE HCL 49890825406 No Longer Active Arie Casper MD Active LOMOTIL 2.5-0.025 MG ORAL TABLET 1 to 2 four times a day as needed for diarrhea DIPHENOXYLATE-ATROPINE 85962603062 No Longer Active Fozia Casper MD Active MACROBID 100 MG ORAL CAPSULE 1 cap by mouth twice daily NITROFURANTOIN MONOHYD MACRO 11785342528 No Longer Active Arie Casper MD Active ZYRTEC ALLERGY 10 MG ORAL CAPSULE 1 po qd CE TIRIZINE HCL 72145458011 No Longer Active Arie Casper MD Active AZITHROMYCIN 250 MG ORAL TABLET 2 po qd x 1 day, then 1 po q d x 4 days AZITHROMYCIN 41914151741 No Longer Active Jillina Fra naomi UI DEVELOPER Active PREDNISONE 20 MG ORAL TABLET 2 tabs daily for 3 days, 1 tab daily for 3 days, 1/2 tab daily for 2 days PREDNISONE 27458077433 No Longer Active Jillina Frazell UI DEVELOPER Active PROMETHAZINE HCL 25 MG ORAL TABLET 1 four times a day as nee ded for vomiting PROMETHAZINE HCL 34529285819 No Longer Active Myrna Roberto MD Active BACTRIM DS 800-160 MG ORAL TABLET 1 twice a day 05/30 SULFAMETHOXAZOLE-TRIMETHOPRIM 83448693395 No Longer Active Myrna Roberto MD Active VICKS DAYQUIL SEVERE COLD/FLU TABLET 1 tab every 6 hours prn 201 02/22/17 [id number]-APAP TABS 46097575558 No Longer Active Chris Roberto MD Active GUAIFENESIN-CODEINE 100-10 MG/5ML ORAL SYRUP 2 tsp every 6 hours prn GUAIFENESIN-CODEINE 65625082526 No Longer Active Myrna Roberto MD Active NAPROXEN 500 MG ORAL TABLET one tab PO BID NAPR OXEN 02063019977 No Longer Active Myrna Roberto MD Active AUGMENTIN 875-125 MG ORAL TABLET 1 tab by mouth twice daily with food AMOXICILLIN-POT CLAVULANATE 54584412445 No Longer Act zaid Estrada MD PhD Active AMOXICILLIN 500 MG ORAL CAPSULE 1 tab by mouth 3 times daily 201 02/21/05 AMOXICILLIN 00609075284 No Longer Active Liliana Estrada MD PhD Active TESSALON PERLES 100 MG ORAL CAPSULE 1 tablet by mouth 3 times da cory BENZONATATE 66102690827 No Longer Active Liliana Estrada MD PhD Active FLAGYL 500 MG ORAL TABLET 1 tablet by mouth two times daily 2014 METRONIDAZOLE 64982667949 No Longer Active Nilam Plattkatie Ac tive ZITHROMAX 250 MG ORAL TABLET 2 po today, then 1 po q days 2-5 20 06/08/16 AZITHROMYCIN 59177746789 No Longer Active Arie Casper MD Active VITAMINS 0.8 MG ORAL TABLET take 1 tab po qday [id number] 59315876790 No Longer Active Arie Casper MD Active IBUPROFEN 800 MG ORAL TABLET take one po Q 8 hours 201 02/01/16 IBUPROFEN 83684839327 No Longer Active Arie Casper MD Acti ve [facility] TUSSIN COUGH/COLD CF 5-10-100 MG/5ML ORAL LIQUID 2 teasp oons every 4 hours [id number] 26506732821 No Longer Active Blaine Casper MD Active COMTREX COLD/COUGH DAY/NITE MS 5-2-10-325 MG ORAL 2 caps deja ry 4 hours [id number] 50798404465 No Longer Active Landon Casper MD Active CHLORASEPTIC MAX SORE THROAT 15-10 MG MOUTH/THROAT LOZENGE 1 every 2 hours prn BENZOCAINE-MENTHOL 85522092608 No Longer Active Arie Casper MD Active PREDNISONE 20 MG ORAL TABLET 2 tabs daily for 3 days, 1 tab daily for 3 days, 1/2 tab daily for 2 days PREDNISONE 03087746429 No Longer Active Jose Zhong MD Active AZITHROMYCIN 250 MG ORAL TABLET 2 po qd x 1 day, then 1 po q d x 4 days AZITHROMYCIN 10247069950 No Longer Active Jose Mcwilliams MD Active ZOFRAN ODT 4 MG ORAL TABLET DISINTEGRATING 1 po q6hr PRN Nausea ONDANSETRON 86936088169 No Longer Active Rich Rosales MD Active ZOFRAN 4 MG ORAL TABLET 1 tablet every 4 hours ONDANSETRON HCL 51342705421 No Longer Active Rich Rosales MD Activ e MUCINEX 600 MG ORAL TABLET EXTENDED RELEASE 12 HOUR Ta ke 1-2 tablets every 12 hours GUAIFENESIN 53821613086 No Longer Active Rich Rosales MD Active BACTRIM 400-80 MG ORAL TABLET take one po BID SULFAMETHOXAZOLE-TRIMETHOPRIM 41562626780 No Longer Active Abelardo HERNANDEZ Active AZITHROMYCIN 500 MG ORAL TABLET 1 PO q day x 6 days 20 03/02/23 AZITHROMYCIN 05818578190 No Longer Active Tin HERNANDEZ Activ e ZITHROMAX 250 MG ORAL TABLET 2 po today, then 1 po q days 2-5 20 10/03/08 AZITHROMYCIN 52607830863 No Longer Active Arie Casper MD Active ZITHROMAX 250 MG ORAL TABLET 2 po today, then 1 po q days 2-5 20 09/23/25 AZITHROMYCIN 86138260787 No Longer Active Arie Casper MD Active AMOXICILLIN 500 MG ORAL CAPSULE 1 tab by mouth 3 times daily 201 11/24/09 AMOXICILLIN 98713493112 No Longer Active Arie Casper MD Active BACTRIM DS 800-160 MG ORAL TABLET 1 tab by mouth twice daily 201 11/03/14 TRIMETHOPRIM-SULFAMETHOXAZOLE 20614192732 No Longer Active Fozia Casper MD Active AMOXICILLIN 500 MG ORAL TABLET take 1 tab po TID 08/05 AMOXICILLIN 01071272235 No Longer Active Arie Casper MD Acti [...] 4 hours ZOFRAN 4 MG ORAL TABLET 171855 ONDANSETRON HCL Inactive ZOFRAN ODT 4 MG [...] COLD/COUGH DAY/NITE MS 5-2-10-325 MG ORA L [id number] Inactive [facility] TUSSIN COUGH/COLD CF 5-10-100 MG/5ML ORAL LIQUID 2 teasp oons every 4 hours [facility] TUSSIN COUGH/COLD CF 5-10-100 MG/5ML ORAL LI QUID [id number] Inactive IBUPROFEN 800 MG ORAL TABLET take one po Q 8 hours 201 02/01/16 IBUPROFEN 800 MG ORAL TABLET IBUPROFEN Inactive VITAMINS 0.8 MG ORAL TABLET take 1 tab po qday VITAMINS 0.8 MG ORAL TABLET [id number] E-FA Inactive TESSALON PERLES 100 MG ORAL CAPSULE 1 tablet by mouth 3 times da cory TESSALON PERLES 100 MG ORAL CAPSULE 383496 BENZONATATE Inactive AMOXICILLIN 500 MG ORAL CAPSULE 1 tab by mouth 3 times daily 201 02/21/05 AMOXICILLIN 500 MG ORAL CAPSULE 214740 AMOXICILLIN Inactive GUAIFENESIN-CODEINE 100-10 MG/5ML ORAL SYRUP 2 tsp every 6 hours prn GUAIFENESIN-CODEINE 100-10 MG/5ML ORAL SYRUP 967129 GUAIFENESIN-CODEINE Inactive VICKS DAYQUIL SEVERE COLD/FLU TABLET 1 tab every 6 hours prn 201 02/22/17 VICKS DAYQUIL SEVERE COLD/FLU TABLET PHENYLEPHRI EH-[id number]-APAP TABS Inactive BACTRIM DS 800-160 MG ORAL TABLET 1 twice a day 05/30 BACTRIM DS 800-160 MG ORAL TABLET 373395 SULFAMETHOXAZOLE-TRIMETHOPRIM Inactiv e PROMETHAZINE HCL 25 MG ORAL TABLET 1 four times a day as nee ded for vomiting PROMETHAZINE HCL 25 MG ORAL TABLET 543257 PROMETHAZINE HCL Inactive ZYRTEC ALLERGY 10 MG ORAL CAPSULE 1 po qd ZYRTEC ALLERGY 10 MG ORAL CAPSULE CETIRIZINE HCL Inactive MACROBID 100 MG ORAL CAPSULE 1 cap by mouth twice daily MACROBID 100 MG ORAL CAPSULE 1050377 NITROFURANTOIN MONOHYD MACRO In active LOMOTIL 2.5-0.025 MG ORAL TABLET 1 to 2 four times a day as needed for diarrhea LOMOTIL 2.5-0.025 MG ORAL TABLET 8549054 DIPHENOXYLATE-ATROPINE Inactive CYCLOBENZAPRINE HCL 10 MG ORAL TABLET 1/2 - 1 tablet b y mouth three times daily as needed for muscle spasm/pain CYCLOBEN ZAPRINE HCL 10 MG ORAL TABLET 167927 CYCLOBENZAPRINE HCL Inactive AMOXICILLIN 500 MG ORAL TABLET 2 tabs twice a day for 10 days 20 07/09/11 AMOXICILLIN 500 MG ORAL TABLET 304889 AMOXICILLIN I nactive LOMOTIL 2.5-0.025 MG ORAL TABLET 1 to 2 four times a day as needed for diarrhea LOMOTIL 2.5-0.025 MG ORAL TABLET 4593924 DIPHENOXYLATE-ATROPINE Inactive ZOFRAN 4 MG ORAL TABLET 1 TAB PO Q 6 HRS PRN NAUSEA 20 07/10/15 ZOFRAN 4 MG ORAL TABLET 323117 ONDANSETRON HCL Inactive CITRATE OF MAGNESIA ORAL SOLUTION 1 bottle today for constipatio n CITRATE OF MAGNESIA ORAL SOLUTION 5501894 MAGNESIUM CITR ATE Inactive PROMETHAZINE HCL 12.5 MG ORAL TABLET 1 tablet by mouth every 6 hours as needed for nausea/vomiting PROMETHAZINE HCL 12.5 MG ORA L TABLET 393167 PROMETHAZINE HCL Inactive PREDNISONE 20 MG ORAL TABLET 1 tablet twice daily for 2 days, then 1 tablet once daily for 2 days PREDNISONE 20 MG ORAL TABLET 488536 PREDNISONE Inactive ALPRAZOLAM 0.25 MG ORAL TABLET 1 tablet by mouth every 8 hours as needed for stress ALPRAZOLAM 0.25 MG ORAL TABLET 711543 ALPRA ZOLAM Inactive FLONASE 50 MCG/ACT NASAL SUSPENSION 1 spray each nostr il twice daily for allergies and runny nose until gone FLON ASE 50 MCG/ACT NASAL SUSPENSION FLUTICASONE PROPIONATE Inactive PREDNISONE 20 MG ORAL TABLET 1 tablet daily for airway inflammat ion PREDNISONE 20 MG ORAL TABLET 307807 PREDNISONE [place] ctive NAPROXEN 500 MG ORAL TABLET Take 1 tab BID NAPROXEN 500 MG ORAL TABLET 083934 NAPROXEN Inactive ZOLOFT 50 MG ORAL TABLET 1 tablet by mouth daily 12/08 ZOLOFT 50 MG ORAL TABLET 245404 SERTRALINE HCL Inactive LOMOTIL 2.5-0.025 MG ORAL TABLET 1 tab po four times a day as needed for diarrhea LOMOTIL 2.5-0.025 MG ORAL TABLET 0373674 DIPHENOXYLATE-ATROPINE Inactive CETIRIZINE HCL 10 MG ORAL TABLET 1 po qd PRN Allergies CETIRIZINE HCL 10 MG ORAL TABLET 6736417 CETIRIZINE HCL Inactiv e TUSSIONEX PENNKINETIC ER 10-8 MG/5ML ORAL SUSPENSION E XTENDED RELEASE 5ml po q12hr PRN Cough TUSSIONEX PENNKINETI C ER 10-8 MG/5ML ORAL SUSPENSION EXTENDED RELEASE HYDROCOD POLST-CHLORPHEN POLST I nactive NEXPLANON IMPLANT right arm subcutaneously NEXPLANON IMPLANT ETONOGESTREL IMPL Inactive PROTONIX 40 MG ORAL TABLET DELAYED RELEASE 1 po q a.m. PROTONIX 40 MG ORAL TABLET DELAYED RELEASE 023153 PANTOPRAZOLE SODI UM Inactive CHERATUSSIN AC 100-10 MG/5ML ORAL SYRUP 1 tsp by mouth every 4 hours as needed for cough CHERATUSSIN AC 100-10 MG/5ML ORAL SYRUP 9 75277 GUAIFENESIN-CODEINE Inactive GUAIFENESIN DM 400-20 MG ORAL [...] tid K EFLEX 500 MG ORAL CAPSULE 979883 CEPHALEXIN Inactive DIFLUCAN 100 MG ORAL TABLET 1 tablet by mouth daily, R EPEAT 2ND DOSE IN 7 DAYS IF STILL SYMPTOMATIC DIFLUCAN 100 MG ORAL TABLET 40257 8 FLUCONAZOLE Inactive PROTONIX 40 MG ORAL TABLET DELAYED RELEASE 1 pill by m outh daily, for acid reflux PROTONIX 40 MG ORAL TABLET DELAYED RELEAS E 958146 PANTOPRAZOLE SODIUM Inactive ALPRAZOLAM 0.25 MG ORAL TABLET 1 tablet by mouth twice a day as needed for stress/anxiety ALPRAZOLAM 0.25 MG ORAL TABLET 568881 ALPRAZOLAM Inactive ESCITALOPRAM OXALATE 10 MG ORAL TABLET take 1 tab po qhs for mod ESCITALOPRAM OXALATE 10 MG ORAL TABLET 063386 ESCITALOP JO OXALATE Inactive AMOXICILLIN 500 MG ORAL TABLET take 1 tab po TID 08/05 AMOXICILLIN 500 MG ORAL TABLET 106148 AMOXICILLIN Inactive AMOXICILLIN 500 MG ORAL CAPSULE 1 tab by mouth 3 times daily 201 11/24/09 AMOXICILLIN 500 MG ORAL CAPSULE 151619 AMOXICILLIN Inactive ZITHROMAX 250 MG ORAL TABLET 2 po today, then 1 po q days 2-5 20 09/23/25 ZITHROMAX 250 MG ORAL TABLET 353772 AZITHROMYCIN [place] ctive ZITHROMAX 250 MG ORAL TABLET 2 po today, then 1 po q days 2-5 20 10/03/08 ZITHROMAX 250 MG ORAL TABLET 830118 AZITHROMYCIN [place] ctive AZITHROMYCIN 500 MG ORAL TABLET 1 PO q day x 6 days 20 03/02/23 AZITHROMYCIN 500 MG ORAL TABLET 7800827 AZITHROMYCIN Inactive BACTRIM 400-80 MG ORAL TABLET take one po BID BACTRIM 400- 80 MG ORAL TABLET 754872 SULFAMETHOXAZOLE-TRIMETHOPRIM Inactive AZITHROMYCIN 250 MG ORAL TABLET 2 po qd x 1 day, then 1 po q d x 4 days AZITHROMYCIN 250 MG ORAL TABLET 208973 AZITHROMY ALLISON Inactive PREDNISONE 20 MG ORAL TABLET 2 tabs daily for 3 days, 1 tab daily for 3 days, 1/2 tab daily for 2 days PREDNISONE 20 MG ORAL T ABLET 114695 PREDNISONE Inactive ZITHROMAX 250 MG ORAL TABLET 2 po today, then 1 po q days 2-5 20 06/08/16 ZITHROMAX 250 MG ORAL TABLET 226140 AZITHROMYCIN [place] ctive FLAGYL 500 MG ORAL TABLET 1 tablet by mouth two times daily 2014 FLAGYL 500 MG ORAL TABLET 227212 METRONIDAZOLE Inacti ve AUGMENTIN 875-125 MG ORAL TABLET 1 tab by mouth twice daily with food AUGMENTIN 875-125 MG ORAL TABLET 494523 AMOXICIL ELSA-POT CLAVULANATE Inactive NAPROXEN 500 MG ORAL TABLET one tab PO BID NAPROXEN 500 MG ORAL TABLET 467214 NAPROXEN Inactive PREDNISONE 20 MG ORAL TABLET 2 tabs daily for 3 days, 1 tab daily for 3 days, 1/2 tab daily for 2 days PREDNISONE 20 MG ORAL T ABLET 100164 PREDNISONE Inactive AZITHROMYCIN 250 MG ORAL TABLET 2 po qd x 1 day, then 1 po q d x 4 days AZITHROMYCIN 250 MG ORAL TABLET 135242 AZITHROMY ALLISON Inactive PREDNISONE 20 MG ORAL TABLET 2 tabs daily for 3 days, 1 tab daily for 3 days, 1/2 tab daily for 2 days PREDNISONE 20 MG ORAL T ABLET 505851 PREDNISONE Inactive ZITHROMAX Z-EMIL 250 MG ORAL TABLET 2 today, then 1 daily for 4 d ays ZITHROMAX Z-EMIL 250 MG ORAL TABLET 784088 AZITHROMYCIN Inactive CEFDINIR 300 MG ORAL CAPSULE 1 po BID x 10 days 12/18 CEFDINIR 300 MG ORAL CAPSULE 350650 CEFDINIR Inactive CEFDINIR 300 MG ORAL CAPSULE 1 po BID x 10 days CEFDINIR 300 MG ORAL CAPSULE 945662 CEFDINIR Inactive PREDNISONE 20 MG ORAL TABLET 2 tabs daily for 3 days, 1 tab daily for 3 days, 1/2 tab daily for 2 days PREDNISONE 20 MG ORAL T ABLET 350234 PREDNISONE Inactive BACTRIM DS 800-160 MG ORAL TABLET 1 tab by mouth twice daily 201 05/02/30 BACTRIM DS 800-160 MG ORAL TABLET 534811 TRIMETHOPRIM-SULFAMETHOXAZOLE Inactive ZITHROMAX Z-EMIL 250 MG ORAL TABLET 2 today, then 1 daily for 4 d ays ZITHROMAX Z-EMIL 250 MG ORAL TABLET 271510 AZITHROMYCIN Inactive TAMIFLU 75 MG ORAL CAPSULE 1 po BID x 5 days 0 TAMIFLU 75 MG ORAL CAPSULE 921324 OSELTAMIVIR PHOSPHATE Inactive CEFDINIR 300 MG ORAL CAPSULE 1 po BID x 10 days 01/03 CEFDINIR 300 MG ORAL CAPSULE 394727 CEFDINIR Inactive ZITHROMAX Z-MEIL 250 MG TABS Take two tablets today and then 1 tablet daily for 4 days ZITHROMAX Z-EMIL 250 MG TABS 415190 AZITHROM YCIN Inactive AMOXICILLIN 875 MG ORAL TABLET 1 tab by mouth twice daily 1 AMOXICILLIN 875 MG ORAL TABLET 796630 AMOXICILLIN Inactive Advance Directives Directive Description Start [...] 11 .0-15.0 platelet count 280 THOUSAND/UL 10*3/mm3 012-077 1816/02/18 mean platelet volume 11.6 fL 7.5-12.5 Lab [...] mg/dL Encounters Code Encounter Date Provider Facility CPT-21063 Level 4 Est. Patient 16:18:17 MILL OPERATOR HEAD Myrna maldonado MD [facility] CPT-21614 Level 4 Est. Patient 16:39:44 MILL OPERATOR HEAD Jose Zhong MD [facility] CPT-08653 [id number] Vst-Est Level IV 13:45:[address] Tali Devi PA-C [facility] CPT-18001 [id number] Vst-Est Level III 09:41:31 CDT Arie Casper MD [facility] CPT-68878 13339-Alh Vst-Est Level III 18:20:11 CDT Me lobito Russ [facility] CPT-98866 60706-Cun Vst-Est Level III 17:21:41 CDT Me lobito Russ [facility]-49129 23460-Pzt Vst-Est Level IV 13:30:22 C NIC Casper MD [facility] CPT-25077 Level 4 Est. Patient 13:05:26 CDT Myrna maldonado MD [facility]-95917 04535-Geg Vst-Est Level IV 20:50:21 C NIC Casper MD [facility] CPT-10337 Level 3 Est. Patient 11:49:34 MILL OPERATOR HEAD Jessica boyd [facility] CPT-71131 Level 3 Est. Patient 14:55:50 MILL OPERATOR HEAD Jose Zhong MD [facility] CPT-44550 Level 3 Est. Patient 10:21:41 MILL OPERATOR HEAD Arie mcqueen MD [facility] CPT-96905 Level 3 Est. Patient 11:35:15 MILL OPERATOR HEAD Arie mcqueen MD [facility] CPT-39285 Level 3 Est. Patient 15:40:28 CDT Brii Are [facility] CPT-92681 Level 3 Est. Patient 16:40:36 CDT Arie mcqueen MD [facility] CPT-13823 Level 4 Est. Patient 15:29:22 MILL OPERATOR HEAD Arie mcqueen MD [facility] CPT-34024 Level 3 Est. Patient 15:18:16 MILL OPERATOR HEAD Jono black DO [facility] CPT-41700 Level 4 Est. Patient 12:08:40 MILL OPERATOR HEAD Brii Are [facility] CPT-98503 Level 3 Est. Patient 09:24:42 CDT Brii Are [facility] CPT-91134 Level 3 Est. Patient 09:12:56 CDT Arie mcqueen MD [facility] CPT-41105 Level 3 Est. Patient 16:40:54 CDT Jose Zhong MD [facility] CPT-89429 Level 2 Est. Patient 13:01:13 CDT Brii Are ll UI DEVELOPER [facility] CPT-00164 Level 3 Est. Patient 11:55:30 MILL OPERATOR HEAD Jono black DO [facility] CPT-31998 Level 3 Est. Patient 09:52:36 MILL OPERATOR HEAD Brii Are ll UI DEVELOPER [facility] CPT-93812 Level 3 Est. Patient 16:25:33 MILL OPERATOR HEAD Rich Rosales MD [facility] CPT-56087 Level 3 Est. Patient 20:33:55 CDT Arie mcqueen MD [facility] CPT-54748 Level 3 Est. Patient 14:18:20 CDT Rich Rosales MD [facility] CPT-08412 Level 4 Est. Patient 09:34:31 CDT Arie mcqueen MD [facility] CPT-46956 Level 3 Est. Patient 09:08:55 MILL OPERATOR HEAD Liliana vincent MD [facility]-57166 Level 3 Est. Patient 16:44:07 MILL OPERATOR HEAD Arie mcqueen MD [facility] CPT-73118 Level 3 Est. Patient 10:44:27 CDT Arie mcqueen MD [facility] CPT-41322 Level 3 Est. Patient 08:55:41 CDT Jose Zhong MD [facility] CPT-66165 Level 3 Est. Patient 18:37:31 CDT Liliana vincent MD [facility] CPT-03875 Level 3 Est. Patient 14:28:23 CDT Abelardo HERNANDEZ [facility] CPT-68624 Level 3 Est. Patient 15:18:13 MILL OPERATOR HEAD Arie mcqueen MD [facility] CPT-60029 Level 3 Est. Patient 10:11:29 MILL OPERATOR HEAD Arie mcqueen MD [facility] CPT-54489 Level 3 Est. Patient 10:55:57 MILL OPERATOR HEAD Jono Sarika Eliot black DO [facility] CPT-23461 Level 3 Est. 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[employer] HEAD CPT-71223 Urine Dip (Floor Use Only) 12:20:20 M[employer] OPER[employer] HEAD 201 06/03/24 CPT-99916 Sono Soft Tissue Head and Neck - XRAY US E ONLY 17:10:14 CDT CPT-20046 Ear Wash with irrigation 17:21:41 CDT 07/04 CPT-83385 Nexplanon Removal 15:40:28 CDT CPT-91534 Sono transvag pelvis non OB uterus ovari es cervix - XRAY USE ONLY 08:58:14 M[employer] CPT-32444 UA w micro - LAB USE ONLY 16:04:56 M[employer] 2015 CPT-44169 Wet Prep/GEN - LAB USE ONLY 16:04:56 MILL OPER[employer] HEAD 20 08/10/29 CPT-93792 First Vx - Ix admin via ID I M or jet injects without counseling by physician 16:57:10 CDT CPT-72229 Fluzone Preservative Free Intramuscular Suspension 16:57:10 CDT CPT-J0696 Rocephin 1000 mg (Ceftriaxone) 11:49:23 CDT CPT-J1040 Depo Medrol 80 mg (Methyl Prednisolone A cetate) 11:49:23 CDT CPT-J1100 Decadron 8mg (Dexamethasone) 11:49:23 CDT 2 CPT-21339 Abx/Therapy Injection 11:49:23 CDT CPT-07492 Abx/Therapy Injection 11:49:23 CDT CPT-97843 Abd compl w upright 09:07:26 [employer] CPT-92901 Ear Wash 16:12:47 [employer] CPT-OV Office Visit 11:12:01 CDT CPT-OV Office Visit 15:30:23 CDT CPT-37812 Sono pelvis non OB uterus ovaries cervix 15:50:44 CDT CPT-63136 Hand comp min 3V 16:42:32 CDT CPT-03260 Abd compl w upright 12:17:01 CDT CPT-63636 Nexplanon Placement 15:07:39 [employer] CPT-75253 Removal of IUD 15:07:39 [employer] CPT-99986 TB Tubersol 12:09:32 CDT CPT-58652 TB Tubersol 13:55:43 CDT
--- OUTSIDE RECORDS SUMMARY | 2020-03-03 06:51 | XMS REPORT | Clinical Summary ---
Author Author Admin, Diamante Marcelo Organization [facility] Address Unknown Phone Unavailable Allergies, [...] quadrant Urinary frequency 788.41 Inactive Roseann Crawford, [facility] Urinary frequency Urinary frequency 788.41 Resolved Jose Zhong MD Urinary frequency Sinusitis - acute 461.9 Resolved Jose Zhong MD Acute sinusitis, unspecified Anxiety with depression 300.4 Active Brii cheema FAMILY PRACTICE PHYSICIAN Dysthymic disorder URI 465.9 Resolved Jose Zhong [...] Vaccination for Prophylaxis V04.81 Inactive Brii Russ FAMILY PRACTICE PHYSICIAN Need for prophylactic vaccin ation and inoculation [...] 3-4 times per day 12/11 PYRIDOXINE HCL 14393628709 Active Myrna Roberto MD Active UNISOM SLEEPTABS 25 MG ORAL TABLET one tab PO qhs DOXYLAMINE SUCCINATE (SLEEP) 41295523121 Active Myrna Roberto MD Active TYLENOL 325 MG ORAL CAPSULE PRN ACETAMINOPHEN 000 85538085 Active Brii Tara Active ESCITALOPRAM OXALATE 10 MG ORAL TABLET take 1 tab po qhs for mod ESCITALOPRAM OXALATE 28952630419 No Longer Active Brii Tara Active ALPRAZOLAM 0.25 MG ORAL TABLET 1 tablet by mouth twice a day as needed for stress/anxiety ALPRAZOLAM 25652321784 No Longer Active Brii Tara Active PROTONIX 40 MG ORAL TABLET DELAYED RELEASE 1 pill by m outh daily, for acid reflux PANTOPRAZOLE SODIUM 99174042397 No Longer Activ e Brii Tara Active DIFLUCAN 100 MG ORAL TABLET 1 tablet by mouth daily, R EPEAT 2ND DOSE IN 7 DAYS IF STILL SYMPTOMATIC FLUCONAZOLE 65370448243 No Long er Active Nilam Raida Active KEFLEX 500 MG ORAL CAPSULE 1 po tid CEPHALEXI N 92332919025 No Longer Active Tali Devi PA-C Active CONCEPT DHA 53.5-38-1 MG ORAL CAPSULE 1 tablet daily [id number] 3 30716084127 Active Oxana Souza LPN Active AMOXICILLIN 875 MG ORAL TABLET 1 tab by mouth twice daily 1 AMOXICILLIN 83761154569 No Longer Active Brii Russ FAMILY PRACTICE PHYSICIAN Active TUSSIONEX PENNKINETIC ER 10-8 MG/5ML ORAL SUSPENSION E XTENDED RELEASE 5ml po q12hr PRN Cough HYDROCOD POLST-CHLORPHEN POLST 5 3272298326 No Longer Active Myrna Roberto MD Active ZITHROMAX Z-EMIL 250 MG TABS Take two tablets today and then 1 tablet daily for 4 days AZITHROMYCIN 33070315550 No Longer Active Flaco Rosales MD Active GUAIFENESIN DM 400-20 MG ORAL TABLET 1 pill by mouth t wice daily, if needed for cough DEXTROMETHORPHAN-GUAIFENESIN 36473168139 No Longer Active Rich Rosales MD Active CEFDINIR 300 MG ORAL CAPSULE 1 po BID x 10 days CEFDINIR 24308409944 No Longer Active Jessica Heaton FAMILY PRACTICE PHYSICIAN Active CHERATUSSIN AC 100-10 MG/5ML ORAL SYRUP 1 tsp by mouth every 4 hours as needed for cough GUAIFENESIN-CODEINE 56229401630 No Longe r Active Jessica Heaton FAMILY PRACTICE PHYSICIAN Active TAMIFLU 75 MG ORAL CAPSULE 1 po BID x 5 days 0 OSELTAMIVIR PHOSPHATE 86783152214 No Longer Active Jose Zhong MD Activ e ZITHROMAX Z-EMIL 250 MG ORAL TABLET 2 today, then 1 daily for 4 d ays AZITHROMYCIN 78528129529 No Longer Active Arie Casper MD Active PROTONIX 40 MG ORAL TABLET DELAYED RELEASE 1 po q a.m. PANTOPRAZOLE SODIUM 13370317398 No Longer Active Arie Casper MD Active BACTRIM DS 800-160 MG ORAL TABLET 1 tab by mouth twice daily 201 05/02/30 TRIMETHOPRIM-SULFAMETHOXAZOLE 17898131508 No Longer Active R KELLIE Sandoval Active NEXPLANON IMPLANT right arm subcutaneously ETONOGESTREL IMPL 39521701446 No Longer Active Brii Russ APRN Active TUSSIONEX PENNKINETIC ER 10-8 MG/5ML ORAL SUSPENSION E XTENDED RELEASE 5ml po q12hr PRN Cough HYDROCOD POLST-CHLORPHEN POLST 5 8045643811 No Longer Active Brii Russ APRN Active CETIRIZINE HCL 10 MG ORAL TABLET 1 po qd PRN Allergies CETIRIZINE HCL 38401702996 No Longer Active Brii Russ APRN Activ e PREDNISONE 20 MG ORAL TABLET 2 tabs daily for 3 days, 1 tab daily for 3 days, 1/2 tab daily for 2 days PREDNISONE 00406966001 No Longer Active Arie Casper MD Active LOMOTIL 2.5-0.025 MG ORAL TABLET 1 tab po four times a day as needed for diarrhea DIPHENOXYLATE-ATROPINE 63114969523 No Lo nger Active Arie Casper MD Active ZOLOFT 50 MG ORAL TABLET 1 tablet by mouth daily 12/08 SERTRALINE HCL 29998188641 No Longer Active Arie Casper MD Ac tive NAPROXEN 500 MG ORAL TABLET Take 1 tab BID NAPR OXEN 17833984069 No Longer Active Arie Casper MD Active CEFDINIR 300 MG ORAL CAPSULE 1 po BID x 10 days CEFDINIR 53864630089 No Longer Active Brii Russ APRN Active PREDNISONE 20 MG ORAL TABLET 1 tablet daily for airway inflammat ion PREDNISONE 27086117675 No Longer Active Brii Russ APRN A ctive CEFDINIR 300 MG ORAL CAPSULE 1 po BID x 10 days CEFDINIR 31609609739 No Longer Active Jono Gagnon DO Active FLONASE 50 MCG/ACT NASAL SUSPENSION 1 spray each nostr il twice daily for allergies and runny nose until gone FLUT ICASONE PROPIONATE 95325275772 No Longer Active Jono Gagonn DO Active ALPRAZOLAM 0.25 MG ORAL TABLET 1 tablet by mouth every 8 hours as needed for stress ALPRAZOLAM 06818867655 No Longer Active Jono Gagnon DO Active ZITHROMAX Z-EMIL 250 MG ORAL TABLET 2 today, then 1 daily for 4 d ays AZITHROMYCIN 43730363071 No Longer Active Arie Casper MD Active PREDNISONE 20 MG ORAL TABLET 2 tabs daily for 3 days, 1 tab daily for 3 days, 1/2 tab daily for 2 days PREDNISONE 90678498836 No Longer Active Brii Arell FAMILY PRACTICE PHYSICIAN Active PREDNISONE 20 MG ORAL TABLET 1 tablet twice daily for 2 days, then 1 tablet once daily for 2 days PREDNISONE 98139451339 No Longer Active Brii Areboris PAREKHN Active PROMETHAZINE HCL 12.5 MG ORAL TABLET 1 tablet by mouth every 6 hours as needed for nausea/vomiting PROMETHAZINE HCL 16830816064 No L onger Active Jono Gagnon DO Active CITRATE OF MAGNESIA ORAL SOLUTION 1 bottle today for constipatio n MAGNESIUM CITRATE 13659544365 No Longer Active Jono Gagnon DO Active ZOFRAN 4 MG ORAL TABLET 1 TAB PO Q 6 HRS PRN NAUSEA 07/10/15 ONDANSETRON HCL 54057204838 No Longer Active Brii Arell FAMILY PRACTICE PHYSICIAN Acti ve LOMOTIL 2.5-0.025 MG ORAL TABLET 1 to 2 four times a day as needed for diarrhea DIPHENOXYLATE-ATROPINE 17515732432 No Longer Active January Russ APRN Active AMOXICILLIN 500 MG ORAL TABLET 2 tabs twice a day for 10 days 20 07/09/11 AMOXICILLIN 60697270233 No Longer Active Brii Arell FAMILY PRACTICE PHYSICIAN Active CYCLOBENZAPRINE HCL 10 MG ORAL TABLET 1/2 - 1 tablet b y mouth three times daily as needed for muscle spasm/pain CYCLOBENZAPRINE HCL 17528639343 No Longer Active Arie Casper MD Active LOMOTIL 2.5-0.025 MG ORAL TABLET 1 to 2 four times a day as needed for diarrhea DIPHENOXYLATE-ATROPINE 74215611015 No Longer Active D freddy Casper MD Active MACROBID 100 MG ORAL CAPSULE 1 cap by mouth twice daily NITROFURANTOIN MONOHYD MACRO 74036847770 No Longer Active Arie Casper MD Active ZYRTEC ALLERGY 10 MG ORAL CAPSULE 1 po qd CE TIRIZINE HCL 72249654947 No Longer Active Arie Casper MD Active AZITHROMYCIN 250 MG ORAL TABLET 2 po qd x 1 day, then 1 po q d x 4 days AZITHROMYCIN 40601581449 No Longer Active Jillina Fra naomi FAMILY PRACTICE PHYSICIAN Active PREDNISONE 20 MG ORAL TABLET 2 tabs daily for 3 days, 1 tab daily for 3 days, 1/2 tab daily for 2 days PREDNISONE 63711661866 No Longer Active Jillina Fradeepl FAMILY PRACTICE PHYSICIAN Active PROMETHAZINE HCL 25 MG ORAL TABLET 1 four times a day as nee ded for vomiting PROMETHAZINE HCL 51400587965 No Longer Active Myrna Roberto MD Active BACTRIM DS 800-160 MG ORAL TABLET 1 twice a day 05/30 SULFAMETHOXAZOLE-TRIMETHOPRIM 00197593981 No Longer Active Myrna Roberto MD Active VICKS DAYQUIL SEVERE COLD/FLU TABLET 1 tab every 6 hours prn 201 02/22/17 [id number] TABS 60952290791 No Longer Active K fany Roberto MD Active GUAIFENESIN-CODEINE 100-10 MG/5ML ORAL SYRUP 2 tsp every 6 hours prn GUAIFENESIN-CODEINE 73371268929 No Longer Active Myrna Roberto MD Active NAPROXEN 500 MG ORAL TABLET one tab PO BID NAPR OXEN 62426502356 No Longer Active Myrna Roberto MD Active AUGMENTIN 875-125 MG ORAL TABLET 1 tab by mouth twice daily with food AMOXICILLIN-POT CLAVULANATE 61352985162 No Longer Act zaid Liliana Estrada MD PhD Active AMOXICILLIN 500 MG ORAL CAPSULE 1 tab by mouth 3 times daily 201 02/21/05 AMOXICILLIN 51315014127 No Longer Active Liliana Estrada MD PhD Active RADHA PERLES 100 MG ORAL CAPSULE 1 tablet by mouth 3 times da cory BENZONATATE 94239922812 No Longer Active Liliana Estrada MD PhD Active FLAGYL 500 MG ORAL TABLET 1 tablet by mouth two times daily 2014 METRONIDAZOLE 50455817106 No Longer Active Nilamnory Plattida Ac tive ZITHROMAX 250 MG ORAL TABLET 2 po today, then 1 po q days 2-5 20 06/08/16 AZITHROMYCIN 84149111030 No Longer Active Arie Casper MD Active VITAMINS 0.8 MG ORAL TABLET take 1 tab po qday [id number] 45738716264 No Longer Active Arie Casper MD Active IBUPROFEN 800 MG ORAL TABLET take one po Q 8 hours 201 02/01/16 IBUPROFEN 49773330974 No Longer Active Arie Casper MD Acti ve [facility] TUSSIN COUGH/COLD CF 5-10-100 MG/5ML ORAL LIQUID 2 teasp oons every 4 hours [id number] 99363836398 No Longer Active Blaine Casper MD Active COMTREX COLD/COUGH DAY/NITE MS 5-2-10-325 MG ORAL 2 caps deja ry 4 hours [id number] 95511145797 No Longer Active Landon Casper MD Active CHLORASEPTIC MAX SORE THROAT 15-10 MG MOUTH/THROAT LOZENGE 1 every 2 hours prn BENZOCAINE-MENTHOL 64273461336 No Longer Active Arie Casper MD Active PREDNISONE 20 MG ORAL TABLET 2 tabs daily for 3 days, 1 tab daily for 3 days, 1/2 tab daily for 2 days PREDNISONE 76194484213 No Longer Active Jose Zhong MD Active AZITHROMYCIN 250 MG ORAL TABLET 2 po qd x 1 day, then 1 po q d x 4 days AZITHROMYCIN 44508702963 No Longer Active Jose Mcwilliams MD Active ZOFRAN ODT 4 MG ORAL TABLET DISINTEGRATING 1 po q6hr PRN Nausea ONDANSETRON 09414141786 No Longer Active Rich Rosales MD Active ZOFRAN 4 MG ORAL TABLET 1 tablet every 4 hours ONDANSETRON HCL 11924798129 No Longer Active Rich Rosales MD Activ e MUCINEX 600 MG ORAL TABLET EXTENDED RELEASE 12 HOUR Ta ke 1-2 tablets every 12 hours GUAIFENESIN 89042974124 No Longer Active Rich Rosales MD Active BACTRIM 400-80 MG ORAL TABLET take one po BID SULFAMETHOXAZOLE-TRIMETHOPRIM 18224000808 No Longer Active Abelardo HERNANDEZ Active AZITHROMYCIN 500 MG ORAL TABLET 1 PO q day x 6 days 20 03/02/23 AZITHROMYCIN 24886545350 No Longer Active Tin HERNANDEZ Activ e ZITHROMAX 250 MG ORAL TABLET 2 po today, then 1 po q days 2-5 20 10/03/08 AZITHROMYCIN 69038488391 No Longer Active Arie Casper MD Active ZITHROMAX 250 MG ORAL TABLET 2 po today, then 1 po q days 2-5 20 09/23/25 AZITHROMYCIN 64364264212 No Longer Active Arie Casper MD Active AMOXICILLIN 500 MG ORAL CAPSULE 1 tab by mouth 3 times daily 201 11/24/09 AMOXICILLIN 40916013151 No Longer Active Arie Casper MD Active BACTRIM DS 800-160 MG ORAL TABLET 1 tab by mouth twice daily 201 11/03/14 TRIMETHOPRIM-SULFAMETHOXAZOLE 58655477398 No Longer Active Fozia Casper MD Active AMOXICILLIN 500 MG ORAL TABLET take 1 tab po TID 08/05 AMOXICILLIN 96147613691 No Longer Active Arie Casper MD Acti ve BACTRIM DS 800-160 MG ORAL TABLET 1 tab by mouth twice daily 201 11/03/14 BACTRIM DS 800-160 MG ORAL TABLET 700547 TRIMETHOPRIM-SULFAMETHOXAZOLE Inactive MUCINEX 600 MG ORAL TABLET EXTENDED RELEASE 12 HOUR Ta ke 1-2 tablets every 12 hours MUCINEX 600 MG ORAL TABLET EXTENDED RELEA SE 12 HOUR GUAIFENESIN Inactive ZOFRAN 4 MG ORAL TABLET 1 tablet every 4 hours ZOFRAN 4 MG ORAL TABLET 559914 ONDANSETRON HCL Inactive ZOFRAN ODT 4 MG [...] COLD/COUGH DAY/NITE MS 5-2-10-325 MG ORA L [id number] Inactive [facility] TUSSIN COUGH/COLD CF 5-10-100 MG/5ML ORAL LIQUID 2 teasp oons every 4 hours [facility] TUSSIN COUGH/COLD CF 5-10-100 MG/5ML ORAL LI QUID [id number] Inactive IBUPROFEN 800 MG ORAL TABLET take one po Q 8 hours 201 02/01/16 IBUPROFEN 800 MG ORAL TABLET IBUPROFEN Inactive VITAMINS 0.8 MG ORAL TABLET take 1 tab po qday VITAMINS 0.8 MG ORAL TABLET [id number] E-FA Inactive TESSALON PERLES 100 MG ORAL CAPSULE 1 tablet by mouth 3 times da cory TESSALON PERLES 100 MG ORAL CAPSULE 174466 BENZONATATE Inactive AMOXICILLIN 500 MG ORAL CAPSULE 1 tab by mouth 3 times daily 201 02/21/05 AMOXICILLIN 500 MG ORAL CAPSULE 630264 AMOXICILLIN Inactive GUAIFENESIN-CODEINE 100-10 MG/5ML ORAL SYRUP 2 tsp every 6 hours prn GUAIFENESIN-CODEINE 100-10 MG/5ML ORAL SYRUP 830335 GUAIFENESIN-CODEINE Inactive VICKS DAYQUIL SEVERE COLD/FLU TABLET 1 tab every 6 hours prn 201 02/22/17 VICKS DAYQUIL SEVERE COLD/FLU TABLET PHENYLEPHRI [id number]-HA-APAP TABS Inactive BACTRIM DS 800-160 MG ORAL TABLET 1 twice a day 05/30 BACTRIM DS 800-160 MG ORAL TABLET 227478 SULFAMETHOXAZOLE-TRIMETHOPRIM Inactiv e PROMETHAZINE HCL 25 MG ORAL TABLET 1 four times a day as nee ded for vomiting PROMETHAZINE HCL 25 MG ORAL TABLET 173632 PROMETHAZINE HCL Inactive ZYRTEC ALLERGY 10 MG ORAL CAPSULE 1 po qd ZYRTEC ALLERGY 10 MG ORAL CAPSULE CETIRIZINE HCL Inactive MACROBID 100 MG ORAL CAPSULE 1 cap by mouth twice daily MACROBID 100 MG ORAL CAPSULE 7514270 NITROFURANTOIN MONOHYD MACRO In active LOMOTIL 2.5-0.025 MG ORAL TABLET 1 to 2 four times a day as needed for diarrhea LOMOTIL 2.5-0.025 MG ORAL TABLET 0297851 DIPHENOXYLATE-ATROPINE Inactive CYCLOBENZAPRINE HCL 10 MG ORAL TABLET 1/2 - 1 tablet b y mouth three times daily as needed for muscle spasm/pain CYCLOBEN ZAPRINE HCL 10 MG ORAL TABLET 457555 CYCLOBENZAPRINE HCL Inactive AMOXICILLIN 500 MG ORAL TABLET 2 tabs twice a day for 10 days 20 07/09/11 AMOXICILLIN 500 MG ORAL TABLET 817281 AMOXICILLIN I nactive LOMOTIL 2.5-0.025 MG ORAL TABLET 1 to 2 four times a day as needed for diarrhea LOMOTIL 2.5-0.025 MG ORAL TABLET 6841548 DIPHENOXYLATE-ATROPINE Inactive ZOFRAN 4 MG ORAL TABLET 1 TAB PO Q 6 HRS PRN NAUSEA 20 07/10/15 ZOFRAN 4 MG ORAL TABLET 904828 ONDANSETRON HCL Inactive CITRATE OF MAGNESIA ORAL SOLUTION 1 bottle today for constipatio n CITRATE OF MAGNESIA ORAL SOLUTION 1860570 MAGNESIUM CITR ATE Inactive PROMETHAZINE HCL 12.5 MG ORAL TABLET 1 tablet by mouth every 6 hours as needed for nausea/vomiting PROMETHAZINE HCL 12.5 MG ORA L TABLET 636579 PROMETHAZINE HCL Inactive PREDNISONE 20 MG ORAL TABLET 1 tablet twice daily for 2 days, then 1 tablet once daily for 2 days PREDNISONE 20 MG ORAL TABLET 945033 PREDNISONE Inactive ALPRAZOLAM 0.25 MG ORAL TABLET 1 tablet by mouth every 8 hours as needed for stress ALPRAZOLAM 0.25 MG ORAL TABLET 915455 ALPRA ZOLAM Inactive FLONASE 50 MCG/ACT NASAL SUSPENSION 1 spray each nostr il twice daily for allergies and runny nose until gone FLON ASE 50 MCG/ACT NASAL SUSPENSION FLUTICASONE PROPIONATE Inactive PREDNISONE 20 MG ORAL TABLET 1 tablet daily for airway inflammat ion PREDNISONE 20 MG ORAL TABLET 169416 PREDNISONE [place] ctive NAPROXEN 500 MG ORAL TABLET Take 1 tab BID NAPROXEN 500 MG ORAL TABLET 712414 NAPROXEN Inactive ZOLOFT 50 MG ORAL TABLET 1 tablet by mouth daily 12/08 ZOLOFT 50 MG ORAL TABLET 534691 SERTRALINE HCL Inactive LOMOTIL 2.5-0.025 MG ORAL TABLET 1 tab po four times a day as needed for diarrhea LOMOTIL 2.5-0.025 MG ORAL TABLET 9688693 DIPHENOXYLATE-ATROPINE Inactive CETIRIZINE HCL 10 MG ORAL TABLET 1 po qd PRN Allergies CETIRIZINE HCL 10 MG ORAL TABLET 9059386 CETIRIZINE HCL Inactiv e TUSSIONEX PENNKINETIC ER 10-8 MG/5ML ORAL SUSPENSION E XTENDED RELEASE 5ml po q12hr PRN Cough TUSSIONEX PENNKINETI C ER 10-8 MG/5ML ORAL SUSPENSION EXTENDED RELEASE HYDROCOD POLST-CHLORPHEN POLST I nactive NEXPLANON IMPLANT right arm subcutaneously NEXPLANON IMPLANT ETONOGESTREL IMPL Inactive PROTONIX 40 MG ORAL TABLET DELAYED RELEASE 1 po q a.m. PROTONIX 40 MG ORAL TABLET DELAYED RELEASE 332894 PANTOPRAZOLE SODI UM Inactive CHERATUSSIN AC 100-10 MG/5ML ORAL SYRUP 1 tsp by mouth every 4 hours as needed for cough CHERATUSSIN AC 100-10 MG/5ML ORAL SYRUP 9 48689 GUAIFENESIN-CODEINE Inactive GUAIFENESIN DM 400-20 MG ORAL [...] tid K EFLEX 500 MG ORAL CAPSULE 733869 CEPHALEXIN Inactive DIFLUCAN 100 MG ORAL TABLET 1 tablet by mouth daily, R EPEAT 2ND DOSE IN 7 DAYS IF STILL SYMPTOMATIC DIFLUCAN 100 MG ORAL TABLET 55233 8 FLUCONAZOLE Inactive PROTONIX 40 MG ORAL TABLET DELAYED RELEASE 1 pill by m outh daily, for acid reflux PROTONIX 40 MG ORAL TABLET DELAYED RELEAS E 803304 PANTOPRAZOLE SODIUM Inactive ALPRAZOLAM 0.25 MG ORAL TABLET 1 tablet by mouth twice a day as needed for stress/anxiety ALPRAZOLAM 0.25 MG ORAL TABLET 409199 ALPRAZOLAM Inactive ESCITALOPRAM OXALATE 10 MG ORAL TABLET take 1 tab po qhs for mod ESCITALOPRAM OXALATE 10 MG ORAL TABLET 888057 ESCITALOP JO OXALATE Inactive AMOXICILLIN 500 MG ORAL TABLET take 1 tab po TID 08/05 AMOXICILLIN 500 MG ORAL TABLET 032239 AMOXICILLIN Inactive AMOXICILLIN 500 MG ORAL CAPSULE 1 tab by mouth 3 times daily 201 11/24/09 AMOXICILLIN 500 MG ORAL CAPSULE 861968 AMOXICILLIN Inactive ZITHROMAX 250 MG ORAL TABLET 2 po today, then 1 po q days 2-5 20 09/23/25 ZITHROMAX 250 MG ORAL TABLET 481052 AZITHROMYCIN [place] ctive ZITHROMAX 250 MG ORAL TABLET 2 po today, then 1 po q days 2-5 20 10/03/08 ZITHROMAX 250 MG ORAL TABLET 846115 AZITHROMYCIN [place] ctive AZITHROMYCIN 500 MG ORAL TABLET 1 PO q day x 6 days 03/02/23 AZITHROMYCIN 500 MG ORAL TABLET 9476155 AZITHROMYCIN Inactive BACTRIM 400-80 MG ORAL TABLET take one po BID BACTRIM 400- 80 MG ORAL TABLET 850265 SULFAMETHOXAZOLE-TRIMETHOPRIM Inactive AZITHROMYCIN 250 MG ORAL TABLET 2 po qd x 1 day, then 1 po q d x 4 days AZITHROMYCIN 250 MG ORAL TABLET 435520 AZITHROMY ALLISON Inactive PREDNISONE 20 MG ORAL TABLET 2 tabs daily for 3 days, 1 tab daily for 3 days, 1/2 tab daily for 2 days PREDNISONE 20 MG ORAL T ABLET 238136 PREDNISONE Inactive ZITHROMAX 250 MG ORAL TABLET 2 po today, then 1 po q days 2-5 20 06/08/16 ZITHROMAX 250 MG ORAL TABLET 064053 AZITHROMYCIN [place] ctive FLAGYL 500 MG ORAL TABLET 1 tablet by mouth two times daily 2014 FLAGYL 500 MG ORAL TABLET 604195 METRONIDAZOLE Inacti ve AUGMENTIN 875-125 MG ORAL TABLET 1 tab by mouth twice daily with food AUGMENTIN 875-125 MG ORAL TABLET 047666 AMOXICIL ELSA-POT CLAVULANATE Inactive NAPROXEN 500 MG ORAL TABLET one tab PO BID NAPROXEN 500 MG ORAL TABLET 322184 NAPROXEN Inactive PREDNISONE 20 MG ORAL TABLET 2 tabs daily for 3 days, 1 tab daily for 3 days, 1/2 tab daily for 2 days PREDNISONE 20 MG ORAL T ABLET 118865 PREDNISONE Inactive AZITHROMYCIN 250 MG ORAL TABLET 2 po qd x 1 day, then 1 po q d x 4 days AZITHROMYCIN 250 MG ORAL TABLET 888289 AZITHROMY ALLISON Inactive PREDNISONE 20 MG ORAL TABLET 2 tabs daily for 3 days, 1 tab daily for 3 days, 1/2 tab daily for 2 days PREDNISONE 20 MG ORAL T ABLET 970621 PREDNISONE Inactive ZITHROMAX Z-EMIL 250 MG ORAL TABLET 2 today, then 1 daily for 4 d ays ZITHROMAX Z-EMIL 250 MG ORAL TABLET 790505 AZITHROMYCIN Inactive CEFDINIR 300 MG ORAL CAPSULE 1 po BID x 10 days 12/18 CEFDINIR 300 MG ORAL CAPSULE 468435 CEFDINIR Inactive CEFDINIR 300 MG ORAL CAPSULE 1 po BID x 10 days CEFDINIR 300 MG ORAL CAPSULE 216823 CEFDINIR Inactive PREDNISONE 20 MG ORAL TABLET 2 tabs daily for 3 days, 1 tab daily for 3 days, 1/2 tab daily for 2 days PREDNISONE 20 MG ORAL T ABLET 308526 PREDNISONE Inactive BACTRIM DS 800-160 MG ORAL TABLET 1 tab by mouth twice daily 201 05/02/30 BACTRIM DS 800-160 MG ORAL TABLET 374003 TRIMETHOPRIM-SULFAMETHOXAZOLE Inactive ZITHROMAX Z-EMIL 250 MG ORAL TABLET 2 today, then 1 daily for 4 d ays ZITHROMAX Z-EMIL 250 MG ORAL TABLET 389861 AZITHROMYCIN Inactive TAMIFLU 75 MG ORAL CAPSULE 1 po BID x 5 days 0 TAMIFLU 75 MG ORAL CAPSULE 366220 OSELTAMIVIR PHOSPHATE Inactive CEFDINIR 300 MG ORAL CAPSULE 1 po BID x 10 days 01/03 CEFDINIR 300 MG ORAL CAPSULE 622346 CEFDINIR Inactive ZITHROMAX Z-EMIL 250 MG TABS Take two tablets today and then 1 tablet daily for 4 days ZITHROMAX Z-EMIL 250 MG TABS 002915 AZITHROM YCIN Inactive AMOXICILLIN 875 MG ORAL TABLET 1 tab by mouth twice daily AMOXICILLIN 875 MG ORAL TABLET 715050 AMOXICILLIN Inactive Advance Directives Directive Description Start [...] 11 .0-15.0 platelet count 280 THOUSAND/UL 10*3/mm3 000-241 9411/02/18 mean platelet volume 11.6 fL 7.5-12.5 Lab [...] mg/dL Encounters Code Encounter Date Provider Facility CPT-52834 Level 4 Est. Patient 16:18:17 RESIDENT SERVICES MANAGER Myrna maldonado MD [facility] CPT-25068 Level 4 Est. Patient 16:39:44 RESIDENT SERVICES MANAGER Jose Zhong MD [facility] CPT-91319 14512-Fcj Vst-Est Level IV 13:45:[address] Tali Devi PA-C [facility] CPT-28906 51905-Jwg Vst-Est Level III 09:41:31 CDT Arie Casper MD [facility] CPT-91591 28162-Ixy Vst-Est Level III 18:20:11 CDT Me lobito Russ [facility] CPT-72347 78155-Jpi Vst-Est Level III 17:21:41 CDT Me lobito Russ [facility] CPT-48159 59117-Gvm Vst-Est Level IV 13:30:22 C DT Arie Casper MD [facility] CPT-03059 Level 4 Est. Patient 13:05:26 CDT Myrnakhadra maldonado MD [facility]-91951 25187-Moy Vst-Est Level IV 20:50:21 C DT Arie Casper MD [facility] CPT-36251 Level 3 Est. Patient 11:49:34 RESIDENT SERVICES MANAGER Jessica boyd [facility] CPT-75985 Level 3 Est. Patient 14:55:50 RESIDENT SERVICES MANAGER Jose Zohng MD [facility] CPT-30407 Level 3 Est. Patient 10:21:41 RESIDENT SERVICES MANAGER Arie mcqueen MD [facility] CPT-64029 Level 3 Est. Patient 11:35:15 RESIDENT SERVICES MANAGER Arie mcqueen MD [facility] CPT-08759 Level 3 Est. Patient 15:40:28 CDT Brii Are [facility] CPT-99073 Level 3 Est. Patient 16:40:36 CDT Arie mcqueen MD [facility] CPT-71775 Level 4 Est. Patient 15:29:22 RESIDENT SERVICES MANAGER Arie mcqueen MD [facility] CPT-05734 Level 3 Est. Patient 15:18:16 RESIDENT SERVICES MANAGER Jono black DO [facility] CPT-55053 Level 4 Est. Patient 12:08:40 RESIDENT SERVICES MANAGER Brii Are [facility] CPT-99752 Level 3 Est. Patient 09:24:42 CDT Brii Are [facility] CPT-75838 Level 3 Est. Patient 09:12:56 CDT Arie mcqueen MD [facility] CPT-31915 Level 3 Est. Patient 16:40:54 CDT Jose Zhong MD [facility] CPT-92888 Level 2 Est. Patient 13:01:13 CDT Brii Are ll FAMILY PRACTICE PHYSICIAN [facility] CPT-94933 Level 3 Est. Patient 11:55:30 RESIDENT SERVICES MANAGER Jono black DO [facility] CPT-87833 Level 3 Est. Patient 09:52:36 RESIDENT SERVICES MANAGER Brii Are ll [facility] CPT-55410 Level 3 Est. Patient 16:25:33 RESIDENT SERVICES MANAGER Rich Rosales MD [facility] CPT-96185 Level 3 Est. Patient 20:33:55 CDT Arie mcqueen MD [facility] CPT-61681 Level 3 Est. Patient 14:18:20 CDT Rich Rosales MD [facility] CPT-26230 Level 4 Est. Patient 09:34:31 CDT Arie mcqueen MD [facility] CPT-30972 Level 3 Est. Patient 09:08:55 RESIDENT SERVICES MANAGER Liliana vincent MD PhD [facility] CPT-75309 Level 3 Est. Patient 16:44:07 RESIDENT SERVICES MANAGER Arie mcqueen MD [facility] CPT-24120 Level 3 Est. Patient 10:44:27 CDT Arie mcqueen MD [facility] CPT-59606 Level 3 Est. Patient 08:55:41 CDT Jose Zhong MD [facility] CPT-60817 Level 3 Est. Patient 18:37:31 CDT Liliana vincent MD PhD [facility] CPT-00946 Level 3 Est. Patient 14:28:23 CDT Abelardo HERNANDEZ [facility] CPT-29613 Level 3 Est. Patient 15:18:13 RESIDENT SERVICES MANAGER Arie mcqueen MD [facility] CPT-56244 Level 3 Est. Patient 10:11:29 RESIDENT SERVICES MANAGER Arie mcqueen MD [facility] CPT-94425 Level 3 Est. Patient 10:55:57 RESIDENT SERVICES MANAGER Jono black DO [facility] CPT-49296 Level 3 Est. Patient 17:29:05 CDT Arie mcqueen MD [facility] Procedures Code Procedure Name Date Entry Date Standard Desc ription CPT-37891 Sono OB transvag XRAY USE ONLY 17:12:53 CS T CPT-81761 Sono OB transvag XRAY USE ONLY 17:11:12 CS T CPT-74815 UHCG Urine - MARC ONLY 12:13:59 RESIDENT SERVICES MANAGER 12/11 CPT-66198 Spec Collection and Handling Fee 12:13:[address] CPT-49083 Visit 12:13:59 RESIDENT SERVICES MANAGER CPT-26092 First Vx - Ix admin via ID I M or jet injects without counseling by physician 13:00:15 RESIDENT SERVICES MANAGER CPT-39505 Flulaval Intramuscular Injectable 13:00:15 RESIDENT SERVICES MANAGER CPT-90340 Urine Dip (Floor Use Only) 12:20:20 RESIDENT SERVICES MANAGER 201 06/03/24 CPT-87060 Sono Soft Tissue Head and Neck - XRAY US E ONLY 17:10:14 CDT CPT-72748 Ear Wash with irrigation 17:21:41 CDT 07/04 CPT-42166 Nexplanon Removal 15:40:28 CDT CPT-46498 Sono transvag pelvis non OB uterus ovari es cervix - XRAY USE ONLY 08:58:14 RESIDENT SERVICES MANAGER CPT-28154 UA w micro - LAB USE ONLY 16:04:56 RESIDENT SERVICES MANAGER 2015 CPT-71912 Wet Prep/GEN - LAB USE ONLY 16:04:56 RESIDENT SERVICES MANAGER 20 08/10/29 CPT-94007 First Vx - Ix admin via ID I M or jet injects without counseling by physician 16:57:10 CDT CPT-54957 Fluzone Preservative Free Intramuscular Suspension 16:57:10 CDT CPT-J0696 Rocephin 1000 mg (Ceftriaxone) 11:49:23 CDT CPT-J1040 Depo Medrol 80 mg (Methyl Prednisolone A cetate) 11:49:23 CDT CPT-J1100 Decadron 8mg (Dexamethasone) 11:49:23 CDT 2 CPT-32925 Abx/Therapy Injection 11:49:23 CDT CPT-72288 Abx/Therapy Injection 11:49:23 CDT CPT-13999 Abd compl w upright 09:07:26 RESIDENT SERVICES MANAGER CPT-56736 Ear Wash 16:12:47 RESIDENT SERVICES MANAGER CPT-OV Office Visit 11:12:01 CDT CPT-OV Office Visit 15:30:23 CDT CPT-48705 Sono pelvis non OB uterus ovaries cervix 15:50:44 CDT CPT-43521 Hand comp min 3V 16:42:32 CDT CPT-40181 Abd compl w upright 12:17:01 CDT CPT-75805 Nexplanon Placement 15:07:39 RESIDENT SERVICES MANAGER CPT-16816 Removal of IUD 15:07:39 RESIDENT SERVICES MANAGER CPT-81769 TB Tubersol 12:09:32 CDT CPT-47582 TB Tubersol 13:55:43 CDT
--- OUTSIDE RECORDS SUMMARY | 2020-03-03 06:52 | XMS REPORT | Clinical Summary ---
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 Dysthymic disorder URI 465.9 Resolved Jose Zhong [...] Vaccination for Prophylaxis V04.81 Inactive Brii Russ BRIM STRETCHING 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 Need for prophylactic vaccin ation and [...] Zhong MD Vaginal bleeding, first trimester 641.90 Active 20 12/12/17 Myrna Roberto MD Unspecified antepartum hemor rhage, unspecified as to episode of care or not applicable Maternal care for low transverse scar from previous delivery Active Myrna Roberto MD Supervision high risk , third trimester V23.9 12/11 Active Myrna Roberto MD Supervision of unspecified high -risk BREAST CANCER ICD-V16.3 Inactive Jose Marcelo FH [...] DYSPAREUNIA Inactive Jose Zhong MD 20 09/01/01 Medication List Medication Instructions Start Date Stop Date Generic Name NDC Status Provider Patient Instruction PYRIDOXINE HCL 25 MG ORAL TABLET one tab PO 3-4 times per day 12/11 PYRIDOXINE HCL 38441660343 Active Myrna Roberto MD Active UNISOM SLEEPTABS 25 MG ORAL TABLET one tab PO qhs DOXYLAMINE SUCCINATE (SLEEP) 41451481790 Active Myrna Roberto MD Active TYLENOL 325 MG ORAL CAPSULE PRN ACETAMINOPHEN 000 14405444 Active Brii Pacheco Active ESCITALOPRAM OXALATE 10 MG ORAL TABLET take 1 tab po qhs for mod ESCITALOPRAM OXALATE 37042723861 No Longer Active Brii Pacheco Active ALPRAZOLAM 0.25 MG ORAL TABLET 1 tablet by mouth twice a day as needed for stress/anxiety ALPRAZOLAM 57251446392 No Longer Active Brii Pacheco Active PROTONIX 40 MG ORAL TABLET DELAYED RELEASE 1 pill by m outh daily, for acid reflux PANTOPRAZOLE SODIUM 18691368114 No Longer Activ e Brii Pacheco Active DIFLUCAN 100 MG ORAL TABLET 1 tablet by mouth daily, R EPEAT 2ND DOSE IN 7 DAYS IF STILL SYMPTOMATIC FLUCONAZOLE 92829871699 No Long er Active Nilam Weber Active KEFLEX 500 MG ORAL CAPSULE 1 po tid CEPHALEXI N 11980294221 No Longer Active Tali Devi PA-C Active CONCEPT DHA 53.5-38-1 MG ORAL CAPSULE 1 tablet daily [id number]-FA-OMEGA 3 11350526096 Active Oxana Souza LPN Active AMOXICILLIN 875 MG ORAL TABLET 1 tab by mouth twice daily 1 AMOXICILLIN 09100951905 No Longer Active Brii Russ BRIM STRETCHING 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 TUSSIONEX PENNKINETIC ER 10-8 MG/5ML ORAL SUSPENSION E XTENDED RELEASE 5ml po q12hr PRN Cough HYDROCOD POLST-CHLORPHEN POLST 5 4883006555 No Longer Active Myrna Roberto MD Active ZITHROMAX Z-EMIL 250 MG TABS Take two tablets today and then 1 tablet daily for 4 days AZITHROMYCIN 12953495220 No Longer Active Flaco Rosales MD Active GUAIFENESIN DM 400-20 MG ORAL TABLET 1 pill by mouth t wice daily, if needed for cough DEXTROMETHORPHAN-GUAIFENESIN 19251120652 No Longer Active Rich Rosales MD Active CEFDINIR 300 MG ORAL CAPSULE 1 po BID x 10 days CEFDINIR 20435883533 No Longer Active Jessica Heaton BRIM STRETCHING 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 Active CHERATUSSIN AC 100-10 MG/5ML ORAL SYRUP 1 tsp by mouth every 4 hours as needed for cough GUAIFENESIN-CODEINE 75997794901 No Longe r Active Jessica Heaton BRIM STRETCHING 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 Active TAMIFLU 75 MG ORAL CAPSULE 1 po BID x 5 days 0 OSELTAMIVIR PHOSPHATE 89760812024 No Longer Active Jose Zhong MD Activ e ZITHROMAX Z-EMIL 250 MG ORAL TABLET 2 today, then 1 daily for 4 d ays AZITHROMYCIN 47895765045 No Longer Active Arie Casper MD Active PROTONIX 40 MG ORAL TABLET DELAYED RELEASE 1 po q a.m. PANTOPRAZOLE SODIUM 62376186158 No Longer Active Arie Casper MD Active BACTRIM DS 800-160 MG ORAL TABLET 1 tab by mouth twice daily 201 05/02/30 TRIMETHOPRIM-SULFAMETHOXAZOLE 22446114766 No Longer Active R wyKELLIE Marcos Active NEXPLANON IMPLANT right arm subcutaneously ETONOGESTREL IMPL 31502599020 No Longer Active Brii Russ APRN Active TUSSIONEX PENNKINETIC ER 10-8 MG/5ML ORAL SUSPENSION E XTENDED RELEASE 5ml po q12hr PRN Cough HYDROCOD POLST-CHLORPHEN POLST 5 0042999793 No Longer Active Brii Russ APRN Active CETIRIZINE HCL 10 MG ORAL TABLET 1 po qd PRN Allergies CETIRIZINE HCL 64177305191 No Longer Active Brii Russ APRN Activ e PREDNISONE 20 MG ORAL TABLET 2 tabs daily for 3 days, 1 tab daily for 3 days, 1/2 tab daily for 2 days PREDNISONE 22557762391 No Longer Active Arie Casper MD Active LOMOTIL 2.5-0.025 MG ORAL TABLET 1 tab po four times a day as needed for diarrhea DIPHENOXYLATE-ATROPINE 17004575524 No Lo nger Active Arie Casper MD Active ZOLOFT 50 MG ORAL TABLET 1 tablet by mouth daily 12/08 SERTRALINE HCL 95089240221 No Longer Active Arie Casper MD Ac tive NAPROXEN 500 MG ORAL TABLET Take 1 tab BID NAPR OXEN 30815013658 No Longer Active Arie Casper MD Active CEFDINIR 300 MG ORAL CAPSULE 1 po BID x 10 days CEFDINIR 25795284454 No Longer Active Brii Russ APRN Active PREDNISONE 20 MG ORAL TABLET 1 tablet daily for airway inflammat ion PREDNISONE 99551129769 No Longer Active Brii Russ APRN A ctive CEFDINIR 300 MG ORAL CAPSULE 1 po BID x 10 days CEFDINIR 50660606386 No Longer Active Jono Gagnon DO Active FLONASE 50 MCG/ACT NASAL SUSPENSION 1 spray each nostr il twice daily for allergies and runny nose until gone FLUT ICASONE PROPIONATE 36899492921 No Longer Active Jono Gagnon DO Active ALPRAZOLAM 0.25 MG ORAL TABLET 1 tablet by mouth every 8 hours as needed for stress ALPRAZOLAM 87627012946 No Longer Active Jono Gagnon DO Active ZITHROMAX Z-EMIL 250 MG ORAL TABLET 2 today, then 1 daily for 4 d ays AZITHROMYCIN 09970957649 No Longer Active Arie Casper MD Active PREDNISONE 20 MG ORAL TABLET 2 tabs daily for 3 days, 1 tab daily for 3 days, 1/2 tab daily for 2 days PREDNISONE 14539587077 No Longer Active Brii Luchoboris BRIM STRETCHING 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 Active PREDNISONE 20 MG ORAL TABLET 1 tablet twice daily for 2 days, then 1 tablet once daily for 2 days PREDNISONE 32453053827 No Longer Active Brii Luchoboris BRIM STRETCHING 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 Active PROMETHAZINE HCL 12.5 MG ORAL TABLET 1 tablet by mouth every 6 hours as needed for nausea/vomiting PROMETHAZINE HCL 54012361499 No L onger Active Jono Gagnon DO Active CITRATE OF MAGNESIA ORAL SOLUTION 1 bottle today for constipatio n MAGNESIUM CITRATE 63930616236 No Longer Active Jono Gagnon DO Active ZOFRAN 4 MG ORAL TABLET 1 TAB PO Q 6 HRS PRN NAUSEA 07/10/15 ONDANSETRON HCL 83035156802 No Longer Active Brii Russ APRN Acti ve LOMOTIL 2.5-0.025 MG ORAL TABLET 1 to 2 four times a day as needed for diarrhea DIPHENOXYLATE-ATROPINE 42644978327 No Longer Active January Russ APRN Active AMOXICILLIN 500 MG ORAL TABLET 2 tabs twice a day for 10 days 07/09/11 AMOXICILLIN 62296394365 No Longer Active Brii Russ APRN Active CYCLOBENZAPRINE HCL 10 MG ORAL TABLET 1/2 - 1 tablet b y mouth three times daily as needed for muscle spasm/pain CYCLOBENZAPRINE HCL 10215807053 No Longer Active Arie Casper MD Active LOMOTIL 2.5-0.025 MG ORAL TABLET 1 to 2 four times a day as needed for diarrhea DIPHENOXYLATE-ATROPINE 01493446990 No Longer Active Fozia Casper MD Active MACROBID 100 MG ORAL CAPSULE 1 cap by mouth twice daily NITROFURANTOIN MONOHYD MACRO 44676402601 No Longer Active Arie Casper MD Active ZYRTEC ALLERGY 10 MG ORAL CAPSULE 1 po qd CE TIRIZINE HCL 38480934299 No Longer Active Arie Casper MD Active AZITHROMYCIN 250 MG ORAL TABLET 2 po qd x 1 day, then 1 po q d x 4 days AZITHROMYCIN 67578322761 No Longer Active Jessica salgado APRN Active PREDNISONE 20 MG ORAL TABLET 2 tabs daily for 3 days, 1 tab daily for 3 days, 1/2 tab daily for 2 days PREDNISONE 00750126307 No Longer Active Jessica Heaton BRIM STRETCHING 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 Active PROMETHAZINE HCL 25 MG ORAL TABLET 1 four times a day as nee ded for vomiting PROMETHAZINE HCL 04260041448 No Longer Active Myrna Roberto MD Active BACTRIM DS 800-160 MG ORAL TABLET 1 twice a day 05/30 SULFAMETHOXAZOLE-TRIMETHOPRIM 44406686318 No Longer Active Myrna Roberto MD Active VICKS DAYQUIL SEVERE COLD/FLU TABLET 1 tab every 6 hours prn 201 02/22/17 [id number]-SV-[id number]-APAP TABS 85557968684 No Longer Active Chris Roberto MD Active GUAIFENESIN-CODEINE 100-10 MG/5ML ORAL SYRUP 2 tsp every 6 hours prn GUAIFENESIN-CODEINE 24448652644 No Longer Active Myrna Roberto MD Active NAPROXEN 500 MG ORAL TABLET one tab PO BID NAPR OXEN 73925669825 No Longer Active Myrna Roberto MD Active AUGMENTIN 875-125 MG ORAL TABLET 1 tab by mouth twice daily with food AMOXICILLIN-POT CLAVULANATE 23257556249 No Longer Act zaid Liliana Estrada MD PhD Active AMOXICILLIN 500 MG ORAL CAPSULE 1 tab by mouth 3 times daily 201 02/21/05 AMOXICILLIN 06392392828 No Longer Active Liliana Estrada MD PhD Active TESSALON PERLES 100 MG ORAL CAPSULE 1 tablet by mouth 3 times da cory BENZONATATE 56629498649 No Longer Active Liliana Estrada MD PhD Active FLAGYL 500 MG ORAL TABLET 1 tablet by mouth two times daily 2014 METRONIDAZOLE 10073269137 No Longer Active Nilam wilhelm ZITHROMAX 250 MG ORAL TABLET 2 po today, then 1 po q days 2-5 20 06/08/16 AZITHROMYCIN 10117800743 No Longer Active Arie Casper MD Active VITAMINS 0.8 MG ORAL TABLET take 1 tab po qday [id number] 59713650663 No Longer Active Arie Casper MD Active IBUPROFEN 800 MG ORAL TABLET take one po Q 8 hours 201 02/01/16 IBUPROFEN 42199633779 No Longer Active Arie Casper MD Acti ve [facility] TUSSIN COUGH/COLD CF 5-10-100 MG/5ML ORAL LIQUID 2 teasp oons every 4 hours [id number]-[id number] 48932061055 No Longer Active Blaine Casper MD Active COMTREX COLD/COUGH DAY/NITE MS 5-2-10-325 MG ORAL 2 caps deja ry 4 hours [id number]-CIY-[id number]-APAP 72086414215 No Longer Active Da aleksandra Casper MD Active CHLORASEPTIC MAX SORE THROAT 15-10 MG MOUTH/THROAT LOZENGE 1 every 2 hours prn BENZOCAINE-MENTHOL 02812844377 No Longer Active Arie Casper MD Active PREDNISONE 20 MG ORAL TABLET 2 tabs daily for 3 days, 1 tab daily for 3 days, 1/2 tab daily for 2 days PREDNISONE 86608103984 No Longer Active Jose Zhong MD Active AZITHROMYCIN 250 MG ORAL TABLET 2 po qd x 1 day, then 1 po q d x 4 days AZITHROMYCIN 07919451338 No Longer Active Jose Mcwilliams MD Active ZOFRAN ODT 4 MG ORAL TABLET DISINTEGRATING 1 po q6hr PRN Nausea ONDANSETRON 39678386608 No Longer Active iRch Rosales MD Active ZOFRAN 4 MG ORAL TABLET 1 tablet every 4 hours ONDANSETRON HCL 98962833309 No Longer Active Rich Rosales MD Activ e MUCINEX 600 MG ORAL TABLET EXTENDED RELEASE 12 HOUR Ta ke 1-2 tablets every 12 hours GUAIFENESIN 58387713599 No Longer Active Rich Rosales MD Active BACTRIM 400-80 MG ORAL TABLET take one po BID SULFAMETHOXAZOLE-TRIMETHOPRIM 94396710975 No Longer Active Abelardo HERNANDEZ Active AZITHROMYCIN 500 MG ORAL TABLET 1 PO q day x 6 days 03/02/23 AZITHROMYCIN 81660847624 No Longer Active Tin HERNANDEZ Activ e ZITHROMAX 250 MG ORAL TABLET 2 po today, then 1 po q days 2-5 20 10/03/08 AZITHROMYCIN 73351005811 No Longer Active Arie Casper MD Active ZITHROMAX 250 MG ORAL TABLET 2 po today, then 1 po q days 2-5 20 09/23/25 AZITHROMYCIN 46389292678 No Longer Active Arie Casper MD Active AMOXICILLIN 500 MG ORAL CAPSULE 1 tab by mouth 3 times daily 201 11/24/09 AMOXICILLIN 29200007676 No Longer Active Arie Casper MD Active BACTRIM DS 800-160 MG ORAL TABLET 1 tab by mouth twice daily 201 11/03/14 TRIMETHOPRIM-SULFAMETHOXAZOLE 04655844372 No Longer Active Fozia Casper MD Active AMOXICILLIN 500 MG ORAL TABLET take 1 tab po TID 08/05 AMOXICILLIN 76554098411 No Longer Active Arie Casper MD Acti ve BACTRIM DS 800-160 MG ORAL TABLET 1 tab by mouth twice daily 201 11/03/14 BACTRIM DS 800-160 MG ORAL TABLET 019557 TRIMETHOPRIM-SULFAMETHOXAZOLE Inactive MUCINEX 600 MG ORAL TABLET EXTENDED RELEASE 12 HOUR Ta ke 1-2 tablets every 12 hours MUCINEX 600 MG ORAL TABLET EXTENDED RELEA SE 12 HOUR GUAIFENESIN Inactive ZOFRAN 4 MG ORAL TABLET 1 tablet every 4 hours ZOFRAN 4 MG ORAL TABLET 299977 ONDANSETRON HCL Inactive ZOFRAN ODT 4 MG [...] COLD/COUGH DAY/NITE MS 5-2-10-325 MG ORA L [id number] Inactive [facility] TUSSIN COUGH/COLD CF 5-10-100 MG/5ML ORAL LIQUID 2 teasp oons every 4 hours [facility] TUSSIN COUGH/COLD CF 5-10-100 MG/5ML ORAL LI QUID [id number] Inactive IBUPROFEN 800 MG ORAL TABLET take one po Q 8 hours 201 02/01/16 IBUPROFEN 800 MG ORAL TABLET 084313 IBUPROFEN Inactive VITAMINS 0.8 MG ORAL TABLET take 1 tab po qday VITAMINS 0.8 MG ORAL TABLET [id number] E-FA Inactive TESSALON PERLES 100 MG ORAL CAPSULE 1 tablet by mouth 3 times da cory TESSALON PERLES 100 MG ORAL CAPSULE 503015 BENZONATATE Inactive AMOXICILLIN 500 MG ORAL CAPSULE 1 tab by mouth 3 times daily 201 02/21/05 AMOXICILLIN 500 MG ORAL CAPSULE 600931 AMOXICILLIN Inactive GUAIFENESIN-CODEINE 100-10 MG/5ML ORAL SYRUP 2 tsp every 6 hours prn GUAIFENESIN-CODEINE 100-10 MG/5ML ORAL SYRUP 439300 GUAIFENESIN-CODEINE Inactive VICKS DAYQUIL SEVERE COLD/FLU TABLET 1 tab every 6 hours prn 201 02/22/17 VICKS DAYQUIL SEVERE COLD/FLU TABLET PHENYLEPHRI [id number]-JW-APAP TABS Inactive BACTRIM DS 800-160 MG ORAL TABLET 1 twice a day 05/30 BACTRIM DS 800-160 MG ORAL TABLET 583278 SULFAMETHOXAZOLE-TRIMETHOPRIM Inactiv e PROMETHAZINE HCL 25 MG ORAL TABLET 1 four times a day as nee ded for vomiting PROMETHAZINE HCL 25 MG ORAL TABLET 364413 PROMETHAZINE HCL Inactive ZYRTEC ALLERGY 10 MG ORAL CAPSULE 1 po qd ZYRTEC ALLERGY 10 MG ORAL CAPSULE CETIRIZINE HCL Inactive MACROBID 100 MG ORAL CAPSULE 1 cap by mouth twice daily MACROBID 100 MG ORAL CAPSULE 8665848 NITROFURANTOIN MONOHYD MACRO In active LOMOTIL 2.5-0.025 MG ORAL TABLET 1 to 2 four times a day as needed for diarrhea LOMOTIL 2.5-0.025 MG ORAL TABLET 8372303 DIPHENOXYLATE-ATROPINE Inactive CYCLOBENZAPRINE HCL 10 MG ORAL TABLET 1/2 - 1 tablet b y mouth three times daily as needed for muscle spasm/pain CYCLOBEN ZAPRINE HCL 10 MG ORAL TABLET 634796 CYCLOBENZAPRINE HCL Inactive AMOXICILLIN 500 MG ORAL TABLET 2 tabs twice a day for 10 days 20 07/09/11 AMOXICILLIN 500 MG ORAL TABLET 607888 AMOXICILLIN I nactive LOMOTIL 2.5-0.025 MG ORAL TABLET 1 to 2 four times a day as needed for diarrhea LOMOTIL 2.5-0.025 MG ORAL TABLET 2993162 DIPHENOXYLATE-ATROPINE Inactive ZOFRAN 4 MG ORAL TABLET 1 TAB PO Q 6 HRS PRN NAUSEA 07/10/15 ZOFRAN 4 MG ORAL TABLET 584223 ONDANSETRON HCL Inactive CITRATE OF MAGNESIA ORAL SOLUTION 1 bottle today for constipatio n CITRATE OF MAGNESIA ORAL SOLUTION 6843637 MAGNESIUM CITR ATE Inactive PROMETHAZINE HCL 12.5 MG ORAL TABLET 1 tablet by mouth every 6 hours as needed for nausea/vomiting PROMETHAZINE HCL 12.5 MG ORA L TABLET 637091 PROMETHAZINE HCL Inactive PREDNISONE 20 MG ORAL TABLET 1 tablet twice daily for 2 days, then 1 tablet once daily for 2 days PREDNISONE 20 MG ORAL TABLET 001743 PREDNISONE Inactive ALPRAZOLAM 0.25 MG ORAL TABLET 1 tablet by mouth every 8 hours as needed for stress ALPRAZOLAM 0.25 MG ORAL TABLET 790217 ALPRA ZOLAM Inactive FLONASE 50 MCG/ACT NASAL SUSPENSION 1 spray each nostr il twice daily for allergies and runny nose until gone FLON ASE 50 MCG/ACT NASAL SUSPENSION FLUTICASONE PROPIONATE Inactive PREDNISONE 20 MG ORAL TABLET 1 tablet daily for airway inflammat ion PREDNISONE 20 MG ORAL TABLET 891190 PREDNISONE [place] ctive NAPROXEN 500 MG ORAL TABLET Take 1 tab BID NAPROXEN 500 MG ORAL TABLET 628198 NAPROXEN Inactive ZOLOFT 50 MG ORAL TABLET 1 tablet by mouth daily 12/08 ZOLOFT 50 MG ORAL TABLET 801586 SERTRALINE HCL Inactive LOMOTIL 2.5-0.025 MG ORAL TABLET 1 tab po four times a day as needed for diarrhea LOMOTIL 2.5-0.025 MG ORAL TABLET 6679213 DIPHENOXYLATE-ATROPINE Inactive CETIRIZINE HCL 10 MG ORAL TABLET 1 po qd PRN Allergies CETIRIZINE HCL 10 MG ORAL TABLET 2616867 CETIRIZINE HCL Inactiv e TUSSIONEX PENNKINETIC ER 10-8 MG/5ML ORAL SUSPENSION E XTENDED RELEASE 5ml po q12hr PRN Cough TUSSIONEX PENNKINETI C ER 10-8 MG/5ML ORAL SUSPENSION EXTENDED RELEASE HYDROCOD POLST-CHLORPHEN POLST I nactive NEXPLANON IMPLANT right arm subcutaneously NEXPLANON IMPLANT ETONOGESTREL IMPL Inactive PROTONIX 40 MG ORAL TABLET DELAYED RELEASE 1 po q a.m. PROTONIX 40 MG ORAL TABLET DELAYED RELEASE 778674 PANTOPRAZOLE SODI UM Inactive CHERATUSSIN AC 100-10 MG/5ML ORAL SYRUP 1 tsp by mouth every 4 hours as needed for cough CHERATUSSIN AC 100-10 MG/5ML ORAL SYRUP 9 28389 GUAIFENESIN-CODEINE Inactive GUAIFENESIN DM 400-20 MG ORAL [...] tid K EFLEX 500 MG ORAL CAPSULE 957749 CEPHALEXIN Inactive DIFLUCAN 100 MG ORAL TABLET 1 tablet by mouth daily, R EPEAT 2ND DOSE IN 7 DAYS IF STILL SYMPTOMATIC DIFLUCAN 100 MG ORAL TABLET 83050 8 FLUCONAZOLE Inactive PROTONIX 40 MG ORAL TABLET DELAYED RELEASE 1 pill by m outh daily, for acid reflux PROTONIX 40 MG ORAL TABLET DELAYED RELEAS E 600884 PANTOPRAZOLE SODIUM Inactive ALPRAZOLAM 0.25 MG ORAL TABLET 1 tablet by mouth twice a day as needed for stress/anxiety ALPRAZOLAM 0.25 MG ORAL TABLET 827274 ALPRAZOLAM Inactive ESCITALOPRAM OXALATE 10 MG ORAL TABLET take 1 tab po qhs for mod ESCITALOPRAM OXALATE 10 MG ORAL TABLET 235144 ESCITALOP JO OXALATE Inactive AMOXICILLIN 500 MG ORAL TABLET take 1 tab po TID 08/05 AMOXICILLIN 500 MG ORAL TABLET 174093 AMOXICILLIN Inactive AMOXICILLIN 500 MG ORAL CAPSULE 1 tab by mouth 3 times daily 201 11/24/09 AMOXICILLIN 500 MG ORAL CAPSULE 301244 AMOXICILLIN Inactive ZITHROMAX 250 MG ORAL TABLET 2 po today, then 1 po q days 2-5 20 09/23/25 ZITHROMAX 250 MG ORAL TABLET 231698 AZITHROMYCIN [place] ctive ZITHROMAX 250 MG ORAL TABLET 2 po today, then 1 po q days 2-5 20 10/03/08 ZITHROMAX 250 MG ORAL TABLET 019540 AZITHROMYCIN Ar[place] ctive AZITHROMYCIN 500 MG ORAL TABLET 1 PO q day x 6 days 20 03/02/23 AZITHROMYCIN 500 MG ORAL TABLET 5687213 AZITHROMYCIN Inactive BACTRIM 400-80 MG ORAL TABLET take one po BID BACTRIM 400- 80 MG ORAL TABLET 507009 SULFAMETHOXAZOLE-TRIMETHOPRIM Inactive AZITHROMYCIN 250 MG ORAL TABLET 2 po qd x 1 day, then 1 po q d x 4 days AZITHROMYCIN 250 MG ORAL TABLET 096859 AZITHROMY ALLISON Inactive PREDNISONE 20 MG ORAL TABLET 2 tabs daily for 3 days, 1 tab daily for 3 days, 1/2 tab daily for 2 days PREDNISONE 20 MG ORAL T ABLET 834936 PREDNISONE Inactive ZITHROMAX 250 MG ORAL TABLET 2 po today, then 1 po q days 2-5 20 06/08/16 ZITHROMAX 250 MG ORAL TABLET 890479 AZITHROMYCIN [place] ctive FLAGYL 500 MG ORAL TABLET 1 tablet by mouth two times daily 2014 FLAGYL 500 MG ORAL TABLET 250263 METRONIDAZOLE Inacti ve AUGMENTIN 875-125 MG ORAL TABLET 1 tab by mouth twice daily with food AUGMENTIN 875-125 MG ORAL TABLET 672604 AMOXICIL ELSA-POT CLAVULANATE Inactive NAPROXEN 500 MG ORAL TABLET one tab PO BID NAPROXEN 500 MG ORAL TABLET 290892 NAPROXEN Inactive PREDNISONE 20 MG ORAL TABLET 2 tabs daily for 3 days, 1 tab daily for 3 days, 1/2 tab daily for 2 days PREDNISONE 20 MG ORAL T ABLET 665698 PREDNISONE Inactive AZITHROMYCIN 250 MG ORAL TABLET 2 po qd x 1 day, then 1 po q d x 4 days AZITHROMYCIN 250 MG ORAL TABLET 396502 AZITHROMY ALLISON Inactive PREDNISONE 20 MG ORAL TABLET 2 tabs daily for 3 days, 1 tab daily for 3 days, 1/2 tab daily for 2 days PREDNISONE 20 MG ORAL T ABLET 009679 PREDNISONE Inactive ZITHROMAX Z-EMIL 250 MG ORAL TABLET 2 today, then 1 daily for 4 d ays ZITHROMAX Z-EMIL 250 MG ORAL TABLET 712179 AZITHROMYCIN Inactive CEFDINIR 300 MG ORAL CAPSULE 1 po BID x 10 days 12/18 CEFDINIR 300 MG ORAL CAPSULE 429609 CEFDINIR Inactive CEFDINIR 300 MG ORAL CAPSULE 1 po BID x 10 days CEFDINIR 300 MG ORAL CAPSULE 204277 CEFDINIR Inactive PREDNISONE 20 MG ORAL TABLET 2 tabs daily for 3 days, 1 tab daily for 3 days, 1/2 tab daily for 2 days PREDNISONE 20 MG ORAL T ABLET 199210 PREDNISONE Inactive BACTRIM DS 800-160 MG ORAL TABLET 1 tab by mouth twice daily 201 05/02/30 BACTRIM DS 800-160 MG ORAL TABLET 155820 TRIMETHOPRIM-SULFAMETHOXAZOLE Inactive ZITHROMAX Z-EMIL 250 MG ORAL TABLET 2 today, then 1 daily for 4 d ays ZITHROMAX Z-EMIL 250 MG ORAL TABLET 949379 AZITHROMYCIN Inactive TAMIFLU 75 MG ORAL CAPSULE 1 po BID x 5 days 0 TAMIFLU 75 MG ORAL CAPSULE 339297 OSELTAMIVIR PHOSPHATE Inactive CEFDINIR 300 MG ORAL CAPSULE 1 po BID x 10 days 2018/0 01/03 CEFDINIR 300 MG ORAL CAPSULE 824495 CEFDINIR Inactive ZITHROMAX Z-EMIL 250 MG TABS Take two tablets today and then 1 tablet daily for 4 days ZITHROMAX Z-EMIL 250 MG TABS 246000 AZITHROM YCIN Inactive AMOXICILLIN 875 MG ORAL TABLET 1 tab by mouth twice daily 1 AMOXICILLIN 875 MG ORAL TABLET 100739 AMOXICILLIN Inactive Advance Directives Directive Description Start [...] Name Value Unit Range Description blood pressure, diastolic 73 mm[Hg] BP kennedy [...] 11 .0-15.0 platelet count 280 THOUSAND/UL 10*3/mm3 307-717 4648/02/18 mean platelet volume 11.6 fL 7.5-12.5 Lab [...] mg/dL Encounters Code Encounter Date Provider Facility CPT-56775 Level 4 Est. Patient 16:39:44 DATA WAREHOUSE CONSULTANT Jose Zhong MD [facility] CPT-19477 [id number] Vst-Est Level IV 13:45:[address] [facility] [id number] Vst-Est Level III 09:41:31 CDT Arie Casper MD [facility] CPT-18705 38818-Fce Vst-Est Level III 18:20:11 CDT Nd lobito [facility]-33394 72903-Qia Vst-Est Level III 17:21:41 CDT Nd lobito [facility]-07569 40066-Yzy Vst-Est Level IV 13:30:22 C NIC Casper MD [facility]-15850 Level 4 Est. Patient 13:05:26 CDT Myrna maldonado MD [facility]-35991 98549-Zft Vst-Est Level IV 20:50:21 C NIC Casper MD [facility] CPT-50809 Level 3 Est. Patient 11:49:34 DATA WAREHOUSE CONSULTANT Jessica boyd [facility] [place]-92866 Level 3 Est. Patient 14:55:50 DATA WAREHOUSE CONSULTANT Jose Zhong MD [facility]-99227 Level 3 Est. Patient 10:21:41 DATA WAREHOUSE CONSULTANT Arie mcqueen MD [facility] CPT-74075 Level 3 Est. Patient 11:35:15 DATA WAREHOUSE CONSULTANT Arie mcqueen MD [facility] CPT-94707 Level 3 Est. Patient 15:40:28 CDT Brii Are ll [facility] CPT-26525 Level 3 Est. Patient 16:40:36 CDT Arie mcqueen MD [facility] CPT-82118 Level 4 Est. Patient 15:29:22 DATA WAREHOUSE CONSULTANT Arie mcqueen MD [facility] CPT-74957 Level 3 Est. Patient 15:18:16 DATA WAREHOUSE CONSULTANT Jono black [facility] CPT-17113 Level 4 Est. Patient 12:08:40 DATA WAREHOUSE CONSULTANT Brii Are ll [facility] CPT-62347 Level 3 Est. Patient 09:24:42 CDT Brii Are [facility] CPT-77344 Level 3 Est. Patient 09:12:56 CDT Arie mcqueen MD [facility] CPT-43829 Level 3 Est. Patient 16:40:54 CDT Jose Zhong MD [facility] CPT-92024 Level 2 Est. Patient 13:01:13 CDT Brii Are ll [facility] CPT-76483 Level 3 Est. Patient 11:55:30 DATA WAREHOUSE CONSULTANT Jono black [facility] CPT-25269 Level 3 Est. Patient 09:52:36 DATA WAREHOUSE CONSULTANT Brii Are ll [facility] CPT-99063 Level 3 Est. Patient 16:25:33 DATA WAREHOUSE CONSULTANT Rich Rosales MD [facility] CPT-89553 Level 3 Est. Patient 20:33:55 CDT Arie mcqueen MD [facility] CPT-34162 Level 3 Est. Patient 14:18:20 CDT Rich Rosales MD [facility] CPT-15974 Level 4 Est. Patient 09:34:31 CDT Arie mcqueen MD [facility] CPT-37456 Level 3 Est. Patient 09:08:55 DATA WAREHOUSE CONSULTANT Liliana vincent MD PhD [facility] CPT-27052 Level 3 Est. Patient 16:44:07 DATA WAREHOUSE CONSULTANT Arie mcqueen MD [facility] CPT-49141 Level 3 Est. Patient 10:44:27 CDT Arie mcqueen MD [facility] CPT-46295 Level 3 Est. Patient 08:55:41 CDT Jose Zhong MD [facility] CPT-83923 Level 3 Est. Patient 18:37:31 CDT Liliana vincent MD PhD [facility] CPT-43203 Level 3 Est. Patient 14:28:23 CDT Abelardo HERNANDEZ [facility] CPT-00316 Level 3 Est. Patient 15:18:13 DATA WAREHOUSE CONSULTANT Arie mcqueen MD [facility] CPT-71810 Level 3 Est. Patient 10:11:29 DATA [employer]AREHOUSE [employer]ULTANT Arie mcqueen MD [facility] CPT-19484 Level 3 Est. Patient 10:55:57 DATA WAREHOUSE CONSULTANT Jono black DO [facility] CPT-17733 Level 3 Est. 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 CPT-22991 First Vx - Ix admin via ID I M or jet injects without counseling by physician 13:00:15 DATA WAREHOUSE CONSULTANT CPT-32255 Flulaval Intramuscular Injectable 13:00:15 DATA WAREHOUSE CONSULTANT CPT-24460 Urine Dip (Floor Use Only) 12:20:20 DATA WAREHOUSE CONSULTANT 201 06/03/24 CPT-44998 Sono Soft Tissue Head and Neck - XRAY US E ONLY 17:10:14 CDT CPT-89382 Ear Wash with irrigation 17:21:41 CDT 07/04 CPT-71545 Nexplanon Removal 15:40:28 CDT CPT-42296 Sono transvag pelvis non OB uterus ovari es cervix - XRAY USE ONLY 08:58:14 DATA [employer]AREHOU[employer] CONSULTANT CPT-03220 UA w micro - LAB USE ONLY 16:04:56 DATA WAREHOUSE CONSULTANT 2015 CPT-33042 Wet Prep/GEN - LAB USE ONLY 16:04:56 DATA WAREHOUSE CONSULTANT 20 08/10/29 CPT-43181 First Vx - Ix admin via ID I M or jet injects without counseling by physician 16:57:10 CDT CPT-62847 Fluzone Preservative Free Intramuscular Suspension 16:57:10 CDT CPT-J0696 Rocephin 1000 mg (Ceftriaxone) 11:49:23 CDT CPT-J1040 Depo Medrol 80 mg (Methyl Prednisolone A cetate) 11:49:23 CDT CPT-J1100 Decadron 8mg (Dexamethasone) 11:49:23 CDT 2 CPT-60763 Abx/Therapy Injection 11:49:23 CDT CPT-36484 Abx/Therapy Injection 11:49:23 CDT CPT-13149 Abd compl w upright 09:07:26 DATA WAREHOUSE CONSULTANT CPT-97604 Ear Wash 16:12:47 DATA WAREHOUSE CONSULTANT CPT-OV Office Visit 11:12:01 CDT CPT-OV Office Visit 15:30:23 CDT CPT-47172 Sono pelvis non OB uterus ovaries cervix 15:50:44 CDT CPT-93327 Hand comp min 3V 16:42:32 CDT CPT-91180 Abd compl w upright 12:17:01 CDT CPT-86857 Nexplanon Placement 15:07:39 DATA WAREHOUSE CONSULTANT CPT-29805 Removal of IUD 15:07:39 DATA WAREHOUSE CONSULTANT CPT-90396 TB Tubersol 12:09:32 CDT CPT-04250 TB Tubersol 13:55:43 CDT
--- OUTSIDE RECORDS SUMMARY | 2020-03-03 06:52 | XMS REPORT | Clinical Summary ---
Author Author Admin, Diamante Marcelo Organization [facility] Address Unknown Phone Unavailable Allergies, [...] Diarrhea Thumb pain, right 729.5 Resolved Jose hZong MD Pain in limb Sinusitis, acute 461.9 [...] quadrant Urinary frequency 788.41 Inactive Roseann Crawford, [facility] Urinary frequency Urinary frequency 788.41 Resolved Jose Zhong MD Urinary frequency Sinusitis - acute 461.9 Resolved Jose Zhong MD Acute sinusitis, unspecified Anxiety with depression 300.4 Active Brii cheema DISC PAD PLATE FILLER Dysthymic disorder URI 465.9 Resolved Jose Zhong [...] Vaccination for Prophylaxis V04.81 Inactive Brii Russ [employer]C P[employer]ATE FILLER Need for prophylactic vaccin ation and inoculation [...] site; multiple sites Vaginal pruritus 698.1 Resolved Jsoe Zhong MD Pruritus of genital organs DYSPAREUNIA [...] low transverse scar from previous delivery Inactive yMrna Roberto MD Supervision high risk , third trimester ICD-V23.9 Inactive Myrna Roberto MD Medication List Medication Instructions Start Date Stop Date Generic Name NDC Status Provider Patient Instruction PYRIDOXINE HCL 25 MG ORAL TABLET one tab PO 3-4 times per day 12/11 PYRIDOXINE HCL 20486853972 Active Myrna Roberot MD Active UNISOM SLEEPTABS 25 MG ORAL TABLET one tab PO qhs DOXYLAMINE SUCCINATE (SLEEP) 11271096580 Active Myrna Roberto MD Active TYLENOL 325 MG ORAL CAPSULE PRN ACETAMINOPHEN 000 49908933 Active Brii Tara Active ESCITALOPRAM OXALATE 10 MG ORAL TABLET take 1 tab po qhs for mod ESCITALOPRAM OXALATE 69356403882 No Longer Active Brii Tara Active ALPRAZOLAM 0.25 MG ORAL TABLET 1 tablet by mouth twice a day as needed for stress/anxiety ALPRAZOLAM 19302672168 No Longer Active Brii Tara Active PROTONIX 40 MG ORAL TABLET DELAYED RELEASE 1 pill by m outh daily, for acid reflux PANTOPRAZOLE SODIUM 28066779957 No Longer Activ e Brii Tara Active DIFLUCAN 100 MG ORAL TABLET 1 tablet by mouth daily, R EPEAT 2ND DOSE IN 7 DAYS IF STILL SYMPTOMATIC FLUCONAZOLE 73981626209 No Long er Active Nilam Raida Active KEFLEX 500 MG ORAL CAPSULE 1 po tid CEPHALEXI N 66183243556 No Longer Active Tali Devi PA-C Active CONCEPT DHA 53.5-38-1 MG ORAL CAPSULE 1 tablet daily [id number] 3 34368469290 Active Oxana Souza LPN Active AMOXICILLIN 875 MG ORAL TABLET 1 tab by mouth twice daily 1 AMOXICILLIN 27332899066 No Longer Active Brii Russ DISC PAD PLATE FILLER Active TUSSIONEX PENNKINETIC ER 10-8 MG/5ML ORAL SUSPENSION E XTENDED RELEASE 5ml po q12hr PRN Cough HYDROCOD POLST-CHLORPHEN POLST 5 8470190318 No Longer Active Myrna Roberto MD Active ZITHROMAX Z-EMIL 250 MG TABS Take two tablets today and then 1 tablet daily for 4 days AZITHROMYCIN 22158673765 No Longer Active Flaco Rosales MD Active GUAIFENESIN DM 400-20 MG ORAL TABLET 1 pill by mouth t wice daily, if needed for cough DEXTROMETHORPHAN-GUAIFENESIN 99510824290 No Longer Active Rich Rosales MD Active CEFDINIR 300 MG ORAL CAPSULE 1 po BID x 10 days CEFDINIR 13098936161 No Longer Active Jessica Heaton DISC PAD PLATE FILLER Active CHERATUSSIN AC 100-10 MG/5ML ORAL SYRUP 1 tsp by mouth every 4 hours as needed for cough GUAIFENESIN-CODEINE 57784810287 No Longe r Active Jessica Heaton DISC PAD PLATE FILLER Active TAMIFLU 75 MG ORAL CAPSULE 1 po BID x 5 days 0 OSELTAMIVIR PHOSPHATE 88460075542 No Longer Active Jose Zhong MD Activ e ZITHROMAX Z-EMIL 250 MG ORAL TABLET 2 today, then 1 daily for 4 d ays AZITHROMYCIN 22930922824 No Longer Active Arie Casper MD Active PROTONIX 40 MG ORAL TABLET DELAYED RELEASE 1 po q a.m. PANTOPRAZOLE SODIUM 37182609441 No Longer Active Arie Casper MD Active BACTRIM DS 800-160 MG ORAL TABLET 1 tab by mouth twice daily 201 05/02/30 TRIMETHOPRIM-SULFAMETHOXAZOLE 44249668973 No Longer Active R KELLIE Sandoval Active NEXPLANON IMPLANT right arm subcutaneously ETONOGESTREL IMPL 78746315484 No Longer Active Brii Russ APRN Active TUSSIONEX PENNKINETIC ER 10-8 MG/5ML ORAL SUSPENSION E XTENDED RELEASE 5ml po q12hr PRN Cough HYDROCOD POLST-CHLORPHEN POLST 5 2979700775 No Longer Active Brii Russ APRN Active CETIRIZINE HCL 10 MG ORAL TABLET 1 po qd PRN Allergies CETIRIZINE HCL 12991490472 No Longer Active Brii Russ APRN Activ e PREDNISONE 20 MG ORAL TABLET 2 tabs daily for 3 days, 1 tab daily for 3 days, 1/2 tab daily for 2 days PREDNISONE 78465678257 No Longer Active Arie Casper MD Active LOMOTIL 2.5-0.025 MG ORAL TABLET 1 tab po four times a day as needed for diarrhea DIPHENOXYLATE-ATROPINE 96581597846 No Lo nger Active Arie Casper MD Active ZOLOFT 50 MG ORAL TABLET 1 tablet by mouth daily 12/08 SERTRALINE HCL 47018865606 No Longer Active Arie Casper MD Ac tive NAPROXEN 500 MG ORAL TABLET Take 1 tab BID NAPR OXEN 16859102116 No Longer Active Arie Casper MD Active CEFDINIR 300 MG ORAL CAPSULE 1 po BID x 10 days CEFDINIR 93518435880 No Longer Active Brii Russ APRN Active PREDNISONE 20 MG ORAL TABLET 1 tablet daily for airway inflammat ion PREDNISONE 89084161372 No Longer Active Brii Russ APRN A ctive CEFDINIR 300 MG ORAL CAPSULE 1 po BID x 10 days CEFDINIR 42404404009 No Longer Active Jono Gagnon DO Active FLONASE 50 MCG/ACT NASAL SUSPENSION 1 spray each nostr il twice daily for allergies and runny nose until gone FLUT ICASONE PROPIONATE 37008682768 No Longer Active Jono Gagnon DO Active ALPRAZOLAM 0.25 MG ORAL TABLET 1 tablet by mouth every 8 hours as needed for stress ALPRAZOLAM 57269246185 No Longer Active Jono Gagnon DO Active ZITHROMAX Z-EMIL 250 MG ORAL TABLET 2 today, then 1 daily for 4 d ays AZITHROMYCIN 74662825714 No Longer Active Arie Casper MD Active PREDNISONE 20 MG ORAL TABLET 2 tabs daily for 3 days, 1 tab daily for 3 days, 1/2 tab daily for 2 days PREDNISONE 14703953641 No Longer Active Brii Arell DISC PAD PLATE FILLER Active PREDNISONE 20 MG ORAL TABLET 1 tablet twice daily for 2 days, then 1 tablet once daily for 2 days PREDNISONE 20184774061 No Longer Active Brii Areboris PAREKHN Active PROMETHAZINE HCL 12.5 MG ORAL TABLET 1 tablet by mouth every 6 hours as needed for nausea/vomiting PROMETHAZINE HCL 45193566862 No L onger Active Jono Gagnon DO Active CITRATE OF MAGNESIA ORAL SOLUTION 1 bottle today for constipatio n MAGNESIUM CITRATE 03469664848 No Longer Active Jono Gagnon DO Active ZOFRAN 4 MG ORAL TABLET 1 TAB PO Q 6 HRS PRN NAUSEA 07/10/15 ONDANSETRON HCL 63465636105 No Longer Active Brii Arell DISC PAD PLATE FILLER Acti ve LOMOTIL 2.5-0.025 MG ORAL TABLET 1 to 2 four times a day as needed for diarrhea DIPHENOXYLATE-ATROPINE 02384439638 No Longer Active January Russ APRN Active AMOXICILLIN 500 MG ORAL TABLET 2 tabs twice a day for 10 days 20 07/09/11 AMOXICILLIN 81385286133 No Longer Active Brii Arell DISC PAD PLATE FILLER Active CYCLOBENZAPRINE HCL 10 MG ORAL TABLET 1/2 - 1 tablet b y mouth three times daily as needed for muscle spasm/pain CYCLOBENZAPRINE HCL 29623981681 No Longer Active Arie Casper MD Active LOMOTIL 2.5-0.025 MG ORAL TABLET 1 to 2 four times a day as needed for diarrhea DIPHENOXYLATE-ATROPINE 57667209676 No Longer Active D freddy Casper MD Active MACROBID 100 MG ORAL CAPSULE 1 cap by mouth twice daily NITROFURANTOIN MONOHYD MACRO 94627179447 No Longer Active Arie Casper MD Active ZYRTEC ALLERGY 10 MG ORAL CAPSULE 1 po qd CE TIRIZINE HCL 81379249348 No Longer Active Arie Casper MD Active AZITHROMYCIN 250 MG ORAL TABLET 2 po qd x 1 day, then 1 po q d x 4 days AZITHROMYCIN 30955000592 No Longer Active Jillina Fra naomi DISC PAD PLATE FILLER Active PREDNISONE 20 MG ORAL TABLET 2 tabs daily for 3 days, 1 tab daily for 3 days, 1/2 tab daily for 2 days PREDNISONE 35533305570 No Longer Active Jillina Fradeepl DISC PAD PLATE FILLER Active PROMETHAZINE HCL 25 MG ORAL TABLET 1 four times a day as nee ded for vomiting PROMETHAZINE HCL 46313880174 No Longer Active Myrna Roberto MD Active BACTRIM DS 800-160 MG ORAL TABLET 1 twice a day 05/30 SULFAMETHOXAZOLE-TRIMETHOPRIM 62755784007 No Longer Active Myrna Roberto MD Active VICKS DAYQUIL SEVERE COLD/FLU TABLET 1 tab every 6 hours prn 201 02/22/17 [id number] TABS 89749703288 No Longer Active K fany Roberto MD Active GUAIFENESIN-CODEINE 100-10 MG/5ML ORAL SYRUP 2 tsp every 6 hours prn GUAIFENESIN-CODEINE 92745623197 No Longer Active Myrna Roberto MD Active NAPROXEN 500 MG ORAL TABLET one tab PO BID NAPR OXEN 91419870824 No Longer Active Myrna Roberto MD Active AUGMENTIN 875-125 MG ORAL TABLET 1 tab by mouth twice daily with food AMOXICILLIN-POT CLAVULANATE 46871263406 No Longer Act zaid Liliana Estrada MD PhD Active AMOXICILLIN 500 MG ORAL CAPSULE 1 tab by mouth 3 times daily 201 02/21/05 AMOXICILLIN 59802891059 No Longer Active Liliana Estrada MD PhD Active RADHA PERLES 100 MG ORAL CAPSULE 1 tablet by mouth 3 times da cory BENZONATATE 53643380496 No Longer Active Liliana Estrada MD PhD Active FLAGYL 500 MG ORAL TABLET 1 tablet by mouth two times daily 2014 METRONIDAZOLE 03628499257 No Longer Active Nilamnory Plattida Ac tive ZITHROMAX 250 MG ORAL TABLET 2 po today, then 1 po q days 2-5 20 06/08/16 AZITHROMYCIN 86459624298 No Longer Active Arie Casper MD Active VITAMINS 0.8 MG ORAL TABLET take 1 tab po qday [id number] 97153618533 No Longer Active Arie Casper MD Active IBUPROFEN 800 MG ORAL TABLET take one po Q 8 hours 201 02/01/16 IBUPROFEN 68364207782 No Longer Active Arie Casper MD Acti ve [facility] TUSSIN COUGH/COLD CF 5-10-100 MG/5ML ORAL LIQUID 2 teasp oons every 4 hours [id number] 72800310379 No Longer Active Blaine Casper MD Active COMTREX COLD/COUGH DAY/NITE MS 5-2-10-325 MG ORAL 2 caps deja ry 4 hours [id number] 99442066906 No Longer Active Landon Casper MD Active CHLORASEPTIC MAX SORE THROAT 15-10 MG MOUTH/THROAT LOZENGE 1 every 2 hours prn BENZOCAINE-MENTHOL 42873155543 No Longer Active Arie Casper MD Active PREDNISONE 20 MG ORAL TABLET 2 tabs daily for 3 days, 1 tab daily for 3 days, 1/2 tab daily for 2 days PREDNISONE 35450718793 No Longer Active Jose Zhong MD Active AZITHROMYCIN 250 MG ORAL TABLET 2 po qd x 1 day, then 1 po q d x 4 days AZITHROMYCIN 30815417798 No Longer Active Jose Mcwilliams MD Active ZOFRAN ODT 4 MG ORAL TABLET DISINTEGRATING 1 po q6hr PRN Nausea ONDANSETRON 42360428475 No Longer Active Rich Rosales MD Active ZOFRAN 4 MG ORAL TABLET 1 tablet every 4 hours ONDANSETRON HCL 48742482019 No Longer Active Rich Rosales MD Activ e MUCINEX 600 MG ORAL TABLET EXTENDED RELEASE 12 HOUR Ta ke 1-2 tablets every 12 hours GUAIFENESIN 08368656562 No Longer Active Rich Rosales MD Active BACTRIM 400-80 MG ORAL TABLET take one po BID SULFAMETHOXAZOLE-TRIMETHOPRIM 08883361223 No Longer Active Abelardo HERNANDEZ Active AZITHROMYCIN 500 MG ORAL TABLET 1 PO q day x 6 days 20 03/02/23 AZITHROMYCIN 30353704132 No Longer Active Tin HERNANDEZ Activ e ZITHROMAX 250 MG ORAL TABLET 2 po today, then 1 po q days 2-5 20 10/03/08 AZITHROMYCIN 09906727898 No Longer Active Arie Casper MD Active ZITHROMAX 250 MG ORAL TABLET 2 po today, then 1 po q days 2-5 20 09/23/25 AZITHROMYCIN 86942413008 No Longer Active Arie Casper MD Active AMOXICILLIN 500 MG ORAL CAPSULE 1 tab by mouth 3 times daily 201 11/24/09 AMOXICILLIN 36569770776 No Longer Active Arie Casper MD Active BACTRIM DS 800-160 MG ORAL TABLET 1 tab by mouth twice daily 201 11/03/14 TRIMETHOPRIM-SULFAMETHOXAZOLE 89326782366 No Longer Active Fozia Casper MD Active AMOXICILLIN 500 MG ORAL TABLET take 1 tab po TID 08/05 AMOXICILLIN 55045304169 No Longer Active Arie Casper MD Acti ve BACTRIM DS 800-160 MG ORAL TABLET 1 tab by mouth twice daily 201 11/03/14 BACTRIM DS 800-160 MG ORAL TABLET 626708 TRIMETHOPRIM-SULFAMETHOXAZOLE Inactive MUCINEX 600 MG ORAL TABLET EXTENDED RELEASE 12 HOUR Ta ke 1-2 tablets every 12 hours MUCINEX 600 MG ORAL TABLET EXTENDED RELEA SE 12 HOUR GUAIFENESIN Inactive ZOFRAN 4 MG ORAL TABLET 1 tablet every 4 hours ZOFRAN 4 MG ORAL TABLET 083358 ONDANSETRON HCL Inactive ZOFRAN ODT 4 MG [...] COLD/COUGH DAY/NITE MS 5-2-10-325 MG ORA L [id number] Inactive [facility] TUSSIN COUGH/COLD CF 5-10-100 MG/5ML ORAL LIQUID 2 teasp oons every 4 hours [facility] TUSSIN COUGH/COLD CF 5-10-100 MG/5ML ORAL LI QUID [id number] Inactive IBUPROFEN 800 MG ORAL TABLET take one po Q 8 hours 201 02/01/16 IBUPROFEN 800 MG ORAL TABLET IBUPROFEN Inactive VITAMINS 0.8 MG ORAL TABLET take 1 tab po qday VITAMINS 0.8 MG ORAL TABLET [id number] E-FA Inactive TESSALON PERLES 100 MG ORAL CAPSULE 1 tablet by mouth 3 times da cory TESSALON PERLES 100 MG ORAL CAPSULE 344332 BENZONATATE Inactive AMOXICILLIN 500 MG ORAL CAPSULE 1 tab by mouth 3 times daily 201 02/21/05 AMOXICILLIN 500 MG ORAL CAPSULE 142345 AMOXICILLIN Inactive GUAIFENESIN-CODEINE 100-10 MG/5ML ORAL SYRUP 2 tsp every 6 hours prn GUAIFENESIN-CODEINE 100-10 MG/5ML ORAL SYRUP 533006 GUAIFENESIN-CODEINE Inactive VICKS DAYQUIL SEVERE COLD/FLU TABLET 1 tab every 6 hours prn 201 02/22/17 VICKS DAYQUIL SEVERE COLD/FLU TABLET PHENYLEPHRI [id number]-APAP TABS Inactive BACTRIM DS 800-160 MG ORAL TABLET 1 twice a day 05/30 BACTRIM DS 800-160 MG ORAL TABLET 924480 SULFAMETHOXAZOLE-TRIMETHOPRIM Inactiv e PROMETHAZINE HCL 25 MG ORAL TABLET 1 four times a day as nee ded for vomiting PROMETHAZINE HCL 25 MG ORAL TABLET 414779 PROMETHAZINE HCL Inactive ZYRTEC ALLERGY 10 MG ORAL CAPSULE 1 po qd ZYRTEC ALLERGY 10 MG ORAL CAPSULE CETIRIZINE HCL Inactive MACROBID 100 MG ORAL CAPSULE 1 cap by mouth twice daily MACROBID 100 MG ORAL CAPSULE 3370000 NITROFURANTOIN MONOHYD MACRO In active LOMOTIL 2.5-0.025 MG ORAL TABLET 1 to 2 four times a day as needed for diarrhea LOMOTIL 2.5-0.025 MG ORAL TABLET 6186987 DIPHENOXYLATE-ATROPINE Inactive CYCLOBENZAPRINE HCL 10 MG ORAL TABLET 1/2 - 1 tablet b y mouth three times daily as needed for muscle spasm/pain CYCLOBEN ZAPRINE HCL 10 MG ORAL TABLET 940690 CYCLOBENZAPRINE HCL Inactive AMOXICILLIN 500 MG ORAL TABLET 2 tabs twice a day for 10 days 20 07/09/11 AMOXICILLIN 500 MG ORAL TABLET 370559 AMOXICILLIN I nactive LOMOTIL 2.5-0.025 MG ORAL TABLET 1 to 2 four times a day as needed for diarrhea LOMOTIL 2.5-0.025 MG ORAL TABLET 4079336 DIPHENOXYLATE-ATROPINE Inactive ZOFRAN 4 MG ORAL TABLET 1 TAB PO Q 6 HRS PRN NAUSEA 20 07/10/15 ZOFRAN 4 MG ORAL TABLET 903920 ONDANSETRON HCL Inactive CITRATE OF MAGNESIA ORAL SOLUTION 1 bottle today for constipatio n CITRATE OF MAGNESIA ORAL SOLUTION 3324357 MAGNESIUM CITR ATE Inactive PROMETHAZINE HCL 12.5 MG ORAL TABLET 1 tablet by mouth every 6 hours as needed for nausea/vomiting PROMETHAZINE HCL 12.5 MG ORA L TABLET 960504 PROMETHAZINE HCL Inactive PREDNISONE 20 MG ORAL TABLET 1 tablet twice daily for 2 days, then 1 tablet once daily for 2 days PREDNISONE 20 MG ORAL TABLET 186242 PREDNISONE Inactive ALPRAZOLAM 0.25 MG ORAL TABLET 1 tablet by mouth every 8 hours as needed for stress ALPRAZOLAM 0.25 MG ORAL TABLET 654818 ALPRA ZOLAM Inactive FLONASE 50 MCG/ACT NASAL SUSPENSION 1 spray each nostr il twice daily for allergies and runny nose until gone FLON ASE 50 MCG/ACT NASAL SUSPENSION FLUTICASONE PROPIONATE Inactive PREDNISONE 20 MG ORAL TABLET 1 tablet daily for airway inflammat ion PREDNISONE 20 MG ORAL TABLET 867667 PREDNISONE [place] ctive NAPROXEN 500 MG ORAL TABLET Take 1 tab BID NAPROXEN 500 MG ORAL TABLET 008118 NAPROXEN Inactive ZOLOFT 50 MG ORAL TABLET 1 tablet by mouth daily 12/08 ZOLOFT 50 MG ORAL TABLET 621861 SERTRALINE HCL Inactive LOMOTIL 2.5-0.025 MG ORAL TABLET 1 tab po four times a day as needed for diarrhea LOMOTIL 2.5-0.025 MG ORAL TABLET 4517697 DIPHENOXYLATE-ATROPINE Inactive CETIRIZINE HCL 10 MG ORAL TABLET 1 po qd PRN Allergies CETIRIZINE HCL 10 MG ORAL TABLET 0556166 CETIRIZINE HCL Inactiv e TUSSIONEX PENNKINETIC ER 10-8 MG/5ML ORAL SUSPENSION E XTENDED RELEASE 5ml po q12hr PRN Cough TUSSIONEX PENNKINETI C ER 10-8 MG/5ML ORAL SUSPENSION EXTENDED RELEASE HYDROCOD POLST-CHLORPHEN POLST I nactive NEXPLANON IMPLANT right arm subcutaneously NEXPLANON IMPLANT ETONOGESTREL IMPL Inactive PROTONIX 40 MG ORAL TABLET DELAYED RELEASE 1 po q a.m. PROTONIX 40 MG ORAL TABLET DELAYED RELEASE 501006 PANTOPRAZOLE SODI UM Inactive CHERATUSSIN AC 100-10 MG/5ML ORAL SYRUP 1 tsp by mouth every 4 hours as needed for cough CHERATUSSIN AC 100-10 MG/5ML ORAL SYRUP 9 47734 GUAIFENESIN-CODEINE Inactive GUAIFENESIN DM 400-20 MG ORAL [...] tid K EFLEX 500 MG ORAL CAPSULE 710352 CEPHALEXIN Inactive DIFLUCAN 100 MG ORAL TABLET 1 tablet by mouth daily, R EPEAT 2ND DOSE IN 7 DAYS IF STILL SYMPTOMATIC DIFLUCAN 100 MG ORAL TABLET 11671 8 FLUCONAZOLE Inactive PROTONIX 40 MG ORAL TABLET DELAYED RELEASE 1 pill by m outh daily, for acid reflux PROTONIX 40 MG ORAL TABLET DELAYED RELEAS E 986249 PANTOPRAZOLE SODIUM Inactive ALPRAZOLAM 0.25 MG ORAL TABLET 1 tablet by mouth twice a day as needed for stress/anxiety ALPRAZOLAM 0.25 MG ORAL TABLET 322669 ALPRAZOLAM Inactive ESCITALOPRAM OXALATE 10 MG ORAL TABLET take 1 tab po qhs for mod ESCITALOPRAM OXALATE 10 MG ORAL TABLET 477372 ESCITALOP JO OXALATE Inactive AMOXICILLIN 500 MG ORAL TABLET take 1 tab po TID 08/05 AMOXICILLIN 500 MG ORAL TABLET 557988 AMOXICILLIN Inactive AMOXICILLIN 500 MG ORAL CAPSULE 1 tab by mouth 3 times daily 201 11/24/09 AMOXICILLIN 500 MG ORAL CAPSULE 979866 AMOXICILLIN Inactive ZITHROMAX 250 MG ORAL TABLET 2 po today, then 1 po q days 2-5 20 09/23/25 ZITHROMAX 250 MG ORAL TABLET 438770 AZITHROMYCIN [place] ctive ZITHROMAX 250 MG ORAL TABLET 2 po today, then 1 po q days 2-5 20 10/03/08 ZITHROMAX 250 MG ORAL TABLET 874526 AZITHROMYCIN [place] ctive AZITHROMYCIN 500 MG ORAL TABLET 1 PO q day x 6 days 03/02/23 AZITHROMYCIN 500 MG ORAL TABLET 9842718 AZITHROMYCIN Inactive BACTRIM 400-80 MG ORAL TABLET take one po BID BACTRIM 400- 80 MG ORAL TABLET 474419 SULFAMETHOXAZOLE-TRIMETHOPRIM Inactive AZITHROMYCIN 250 MG ORAL TABLET 2 po qd x 1 day, then 1 po q d x 4 days AZITHROMYCIN 250 MG ORAL TABLET 982111 AZITHROMY ALLISON Inactive PREDNISONE 20 MG ORAL TABLET 2 tabs daily for 3 days, 1 tab daily for 3 days, 1/2 tab daily for 2 days PREDNISONE 20 MG ORAL T ABLET 984845 PREDNISONE Inactive ZITHROMAX 250 MG ORAL TABLET 2 po today, then 1 po q days 2-5 20 06/08/16 ZITHROMAX 250 MG ORAL TABLET 286657 AZITHROMYCIN [place] ctive FLAGYL 500 MG ORAL TABLET 1 tablet by mouth two times daily 2014 FLAGYL 500 MG ORAL TABLET 407651 METRONIDAZOLE Inacti ve AUGMENTIN 875-125 MG ORAL TABLET 1 tab by mouth twice daily with food AUGMENTIN 875-125 MG ORAL TABLET 455935 AMOXICIL ELSA-POT CLAVULANATE Inactive NAPROXEN 500 MG ORAL TABLET one tab PO BID NAPROXEN 500 MG ORAL TABLET 884083 NAPROXEN Inactive PREDNISONE 20 MG ORAL TABLET 2 tabs daily for 3 days, 1 tab daily for 3 days, 1/2 tab daily for 2 days PREDNISONE 20 MG ORAL T ABLET 879287 PREDNISONE Inactive AZITHROMYCIN 250 MG ORAL TABLET 2 po qd x 1 day, then 1 po q d x 4 days AZITHROMYCIN 250 MG ORAL TABLET 995658 AZITHROMY ALLISON Inactive PREDNISONE 20 MG ORAL TABLET 2 tabs daily for 3 days, 1 tab daily for 3 days, 1/2 tab daily for 2 days PREDNISONE 20 MG ORAL T ABLET 804032 PREDNISONE Inactive ZITHROMAX Z-EMIL 250 MG ORAL TABLET 2 today, then 1 daily for 4 d ays ZITHROMAX Z-EMIL 250 MG ORAL TABLET 636932 AZITHROMYCIN Inactive CEFDINIR 300 MG ORAL CAPSULE 1 po BID x 10 days 12/18 CEFDINIR 300 MG ORAL CAPSULE 723752 CEFDINIR Inactive CEFDINIR 300 MG ORAL CAPSULE 1 po BID x 10 days CEFDINIR 300 MG ORAL CAPSULE 224244 CEFDINIR Inactive PREDNISONE 20 MG ORAL TABLET 2 tabs daily for 3 days, 1 tab daily for 3 days, 1/2 tab daily for 2 days PREDNISONE 20 MG ORAL T ABLET 779589 PREDNISONE Inactive BACTRIM DS 800-160 MG ORAL TABLET 1 tab by mouth twice daily 201 05/02/30 BACTRIM DS 800-160 MG ORAL TABLET 068482 TRIMETHOPRIM-SULFAMETHOXAZOLE Inactive ZITHROMAX Z-EMIL 250 MG ORAL TABLET 2 today, then 1 daily for 4 d ays ZITHROMAX Z-EMIL 250 MG ORAL TABLET 339910 AZITHROMYCIN Inactive TAMIFLU 75 MG ORAL CAPSULE 1 po BID x 5 days 0 TAMIFLU 75 MG ORAL CAPSULE 425887 OSELTAMIVIR PHOSPHATE Inactive CEFDINIR 300 MG ORAL CAPSULE 1 po BID x 10 days 01/03 CEFDINIR 300 MG ORAL CAPSULE 629766 CEFDINIR Inactive ZITHROMAX Z-EMIL 250 MG TABS Take two tablets today and then 1 tablet daily for 4 days ZITHROMAX Z-EMIL 250 MG TABS 685998 AZITHROM YCIN Inactive AMOXICILLIN 875 MG ORAL TABLET 1 tab by mouth twice daily AMOXICILLIN 875 MG ORAL TABLET 222464 AMOXICILLIN Inactive Advance Directives Directive Description Start [...] 11 .0-15.0 platelet count 280 THOUSAND/UL 10*3/mm3 147-359 9779/02/18 mean platelet volume 11.6 fL 7.5-12.5 Lab [...] mg/dL Encounters Code Encounter Date Provider Facility CPT-40920 Level 4 Est. Patient 16:18:17 SERVICE STATION EQUIPMENT MECHANIC Myrna maldonado MD [facility] CPT-03083 Level 4 Est. Patient 16:39:44 SERVICE STATION EQUIPMENT MECHANIC Jose Zhong MD [facility] CPT-29148 [id number] Vst-Est Level IV 13:45:[address] Tali Devi PA-C [facility] CPT-26307 [id number] Vst-Est Level III 09:41:31 CDT Arie Casper MD [facility] CPT-53970 [id number] Vst-Est Level III 18:20:11 CDT Me lobito Russ [facility] CPT-30738 [id number] Vst-Est Level III 17:21:41 CDT Me lobito Russ [facility] CPT-25871 [id number] Vst-Est Level IV 13:30:22 C DT Arie Casper MD [facility] CPT-28169 Level 4 Est. Patient 13:05:26 CDT Myrnakhadra maldonado MD [facility]-31298 47196-Zxj Vst-Est Level IV 20:50:21 C DT Arie Casper MD [facility] CPT-16451 Level 3 Est. Patient 11:49:34 SERVICE STATION EQUIPMENT MECHANIC Jessica boyd [facility] CPT-52838 Level 3 Est. Patient 14:55:50 SERVICE STATION EQUIPMENT MECHANIC Jose Zhong MD [facility] CPT-38516 Level 3 Est. Patient 10:21:41 SERVICE STATION EQUIPMENT MECHANIC Arie mcqueen MD [facility] CPT-88124 Level 3 Est. Patient 11:35:15 SERVICE STATION EQUIPMENT MECHANIC Arie mcqueen MD [facility] CPT-88233 Level 3 Est. Patient 15:40:28 CDT Brii Are [facility] CPT-96885 Level 3 Est. Patient 16:40:36 CDT Arie mcqueen MD [facility] CPT-66608 Level 4 Est. Patient 15:29:22 SERVICE STATION EQUIPMENT MECHANIC Arie mcqueen MD [facility] CPT-09825 Level 3 Est. Patient 15:18:16 SERVICE STATION EQUIPMENT MECHANIC Jono black DO [facility] CPT-74628 Level 4 Est. Patient 12:08:40 SERVICE STATION EQUIPMENT MECHANIC Brii Are [facility] CPT-83364 Level 3 Est. Patient 09:24:42 CDT Brii Are [facility] CPT-38146 Level 3 Est. Patient 09:12:56 CDT Arie mcqueen MD [facility] CPT-80574 Level 3 Est. Patient 16:40:54 CDT Jose Zhong MD [facility] CPT-26961 Level 2 Est. Patient 13:01:13 CDT Brii Are ll DISC PAD PLATE FILLER [facility] CPT-95643 Level 3 Est. Patient 11:55:30 SERVICE STATION EQUIPMENT MECHANIC Jono black DO [facility] CPT-14016 Level 3 Est. Patient 09:52:36 SERVICE STATION EQUIPMENT MECHANIC Brii Are ll [facility] CPT-45614 Level 3 Est. Patient 16:25:33 SERVICE STATION EQUIPMENT MECHANIC Rich Rosales MD [facility] CPT-10033 Level 3 Est. Patient 20:33:55 CDT Arie mcqueen MD [facility] CPT-04358 Level 3 Est. Patient 14:18:20 CDT Rich Rosales MD [facility] CPT-98049 Level 4 Est. Patient 09:34:31 CDT Arie mcqueen MD [facility] CPT-56637 Level 3 Est. Patient 09:08:55 SERVICE STATION EQUIPMENT MECHANIC Liliana vincent MD PhD [facility] CPT-83685 Level 3 Est. 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 Patient 10:44:27 CDT Arie mcqueen MD [facility] CPT-81154 Level 3 Est. Patient 08:55:41 CDT Jose Zhong MD [facility] CPT-83998 Level 3 Est. Patient 18:37:31 CDT Liliana vincent MD PhD [facility] CPT-54807 Level 3 Est. Patient 14:28:23 CDT Abelardo HERNANDEZ [facility] CPT-16165 Level 3 Est. 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 Patient 10:55:57 [employer] EQUIPMENT MECHANIC Jono black DO [facility] CPT-31143 Level 3 Est. Patient 17:29:05 CDT Arie mcqueen MD [facility] Procedures Code Procedure Name Date Entry Date Standard Desc ription CPT-68811 Sono OB transvag XRAY USE ONLY 17:12:53 CS T CPT-81136 Sono OB transvag XRAY USE ONLY 17:11:12 CS T CPT-04719 UHCG Urine - MARC ONLY 12:13:59 [employer]MENT MECH[employer] 12/11 CPT-73130 Spec Collection and Handling Fee 12:13:[address] CPT-82967 Visit 12:13:59 [employer]QUIPMENT MECHAN[employer] CPT-96229 First Vx - Ix admin via ID I M or jet injects without counseling by physician 13:00:15 [employer]ICE [employer]QUIPMENT MECHANIC CPT-06596 Flulaval Intramuscular Injectable 13:00:15 [employer]ICE [employer]QUIPMENT MECHANIC CPT-04669 Urine Dip (Floor Use Only) 12:20:20 [employer]ICE [employer] EQUIPMENT MECHANIC 201 06/03/24 CPT-09181 Sono Soft Tissue Head and Neck - XRAY US E ONLY 17:10:14 CDT CPT-90039 Ear Wash with irrigation 17:21:41 CDT 07/04 CPT-18384 Nexplanon Removal 15:40:28 CDT CPT-89983 Sono transvag pelvis non OB uterus ovari es cervix - XRAY USE ONLY 08:58:14 [employer] MECH[employer] CPT-68652 UA w micro - LAB USE ONLY 16:04:56 [employer]ICE [employer] EQUIPMENT MECHANIC 2015 CPT-90057 Wet Prep/GEN - LAB USE ONLY 16:04:56 [employer] EQUIPMENT MECHANIC 20 08/10/29 CPT-36817 First Vx - Ix admin via ID I M or jet injects without counseling by physician 16:57:10 CDT CPT-91168 Fluzone Preservative Free Intramuscular Suspension 16:57:10 CDT CPT-J0696 Rocephin 1000 mg (Ceftriaxone) 11:49:23 CDT CPT-J1040 Depo Medrol 80 mg (Methyl Prednisolone A cetate) 11:49:23 CDT CPT-J1100 Decadron 8mg (Dexamethasone) 11:49:23 CDT 2 CPT-50891 Abx/Therapy Injection 11:49:23 CDT CPT-52851 Abx/Therapy Injection 11:49:23 CDT CPT-16812 Abd compl w upright 09:07:26 [employer] MECHAN[employer] CPT-06236 Ear Wash 16:12:47 [employer]ICE [employer] EQUIPMENT MECHANIC CPT-OV Office Visit 11:12:01 CDT CPT-OV Office Visit 15:30:23 CDT CPT-58490 Sono pelvis non OB uterus ovaries cervix 15:50:44 CDT CPT-85461 Hand comp min 3V 16:42:32 CDT CPT-11157 Abd compl w upright 12:17:01 CDT CPT-12785 Nexplanon Placement 15:07:39 [employer]ICE [employer]IPMENT MECHANIC CPT-27180 Removal of IUD 15:07:39 SERVICE [employer]ATION EQUIPMENT MECHANIC CPT-45406 TB Tubersol 12:09:32 CDT CPT-83856 TB Tubersol 13:55:43 CDT
--- OUTSIDE RECORDS SUMMARY | 2020-03-03 06:53 | XMS REPORT | Clinical Summary ---
Author Author Admin, Diamante Marcelo Organization [employer] Address Unknown Phone Unavailable Allergies, Adverse Reactions, [...] quadrant Urinary frequency 788.41 Inactive Roseann Crawford, [facility] Urinary frequency Urinary frequency 788.41 Resolved [...] Influenza Vaccination for Prophylaxis V04.81 Inactive Brii Arell WHITE METAL CORROSION PROOFER Need for prophylactic vaccin ation and inoculation [...] Liliana Gaspar MA Dysuria ICD-788.1 Inactive Jose Zhnog MD 2018 Pelvic pain, acute ICD-789.09 Inactive Jose Zhong MD Vaginal pruritus ICD-698.1 Inactive Jose Mcwilliams MD DYSPAREUNIA Inactive Jose Zhong MD 20 09/01/01 Medication List Medication Instructions Start Date Stop Date Generic Name NDC Status Provider Patient Instruction PYRIDOXINE HCL 25 MG ORAL TABLET one tab PO 3-4 times per day 12/11 PYRIDOXINE HCL 67802757074 Active Myrna Roberto MD Active UNISOM SLEEPTABS 25 MG ORAL TABLET one tab PO qhs DOXYLAMINE SUCCINATE (SLEEP) 27467130722 Active Myrna Roberto MD Active TYLENOL 325 MG ORAL CAPSULE PRN ACETAMINOPHEN 000 52991191 Active Brii Pacheco Active ESCITALOPRAM OXALATE 10 MG ORAL TABLET take 1 tab po qhs for mod ESCITALOPRAM OXALATE 71953607549 No Longer Active Brii Pacheco Active ALPRAZOLAM 0.25 MG ORAL TABLET 1 tablet by mouth twice a day as needed for stress/anxiety ALPRAZOLAM 65466771098 No Longer Active Brii Pacheco Active PROTONIX 40 MG ORAL TABLET DELAYED RELEASE 1 pill by m outh daily, for acid reflux PANTOPRAZOLE SODIUM 85693455845 No Longer Activ e Brii Pacheco Active DIFLUCAN 100 MG ORAL TABLET 1 tablet by mouth daily, R EPEAT 2ND DOSE IN 7 DAYS IF STILL SYMPTOMATIC FLUCONAZOLE 52565387404 No Long er Active Nilamnory Plattida Active KEFLEX 500 MG ORAL CAPSULE 1 po tid CEPHALEXI N 03324375483 No Longer Active Tali Devi PA-C Active CONCEPT DHA 53.5-38-1 MG ORAL CAPSULE 1 tablet daily [id number] 3 31288811084 Active Oxana Souza LPN Active AMOXICILLIN 875 MG ORAL TABLET 1 tab by mouth twice daily 1 AMOXICILLIN 23334792653 No Longer Active Brii Russ WHITE METAL CORROSION PROOFER Active TUSSIONEX PENNKINETIC ER 10-8 MG/5ML ORAL SUSPENSION E XTENDED RELEASE 5ml po q12hr PRN Cough HYDROCOD POLST-CHLORPHEN POLST 5 6287344793 No Longer Active Myrna Roberto MD Active ZITHROMAX Z-EMIL 250 MG TABS Take two tablets today and then 1 tablet daily for 4 days AZITHROMYCIN 55762009682 No Longer Active Flaco Rosales MD Active GUAIFENESIN DM 400-20 MG ORAL TABLET 1 pill by mouth t wice daily, if needed for cough DEXTROMETHORPHAN-GUAIFENESIN 37370618771 No Longer Active Rich Rosales MD Active CEFDINIR 300 MG ORAL CAPSULE 1 po BID x 10 days CEFDINIR 34949182273 No Longer Active Jessica Heaton APRN Active CHERATUSSIN AC 100-10 MG/5ML ORAL SYRUP 1 tsp by mouth every 4 hours as needed for cough GUAIFENESIN-CODEINE 21318246580 No Longe r Active Jessica Heaton APRN Active TAMIFLU 75 MG ORAL CAPSULE 1 po BID x 5 days 0 OSELTAMIVIR PHOSPHATE 47617246900 No Longer Active Jose Zhong MD Activ e ZITHROMAX Z-EMIL 250 MG ORAL TABLET 2 today, then 1 daily for 4 d ays AZITHROMYCIN 33928957095 No Longer Active Arie Casper MD Active PROTONIX 40 MG ORAL TABLET DELAYED RELEASE 1 po q a.m. PANTOPRAZOLE SODIUM 10631379292 No Longer Active Arie Casper MD Active BACTRIM DS 800-160 MG ORAL TABLET 1 tab by mouth twice daily 201 05/02/30 TRIMETHOPRIM-SULFAMETHOXAZOLE 16736166937 No Longer Active R KELLIE Sandoval Active NEXPLANON IMPLANT right arm subcutaneously ETONOGESTREL IMPL 55504309622 No Longer Active Brii Russ APRN Active TUSSIONEX PENNKINETIC ER 10-8 MG/5ML ORAL SUSPENSION E XTENDED RELEASE 5ml po q12hr PRN Cough HYDROCOD POLST-CHLORPHEN POLST 5 9002531837 No Longer Active Brii Russ APRN Active CETIRIZINE HCL 10 MG ORAL TABLET 1 po qd PRN Allergies CETIRIZINE HCL 22337877489 No Longer Active Brii Russ APRN Activ e PREDNISONE 20 MG ORAL TABLET 2 tabs daily for 3 days, 1 tab daily for 3 days, 1/2 tab daily for 2 days PREDNISONE 17034620603 No Longer Active Arie Casper MD Active LOMOTIL 2.5-0.025 MG ORAL TABLET 1 tab po four times a day as needed for diarrhea DIPHENOXYLATE-ATROPINE 24228811263 No Lo nger Active Arie Casper MD Active ZOLOFT 50 MG ORAL TABLET 1 tablet by mouth daily 12/08 SERTRALINE HCL 92143226382 No Longer Active Arie Casper MD Ac tive NAPROXEN 500 MG ORAL TABLET Take 1 tab BID NAPR OXEN 85628234734 No Longer Active Arie Casper MD Active CEFDINIR 300 MG ORAL CAPSULE 1 po BID x 10 days CEFDINIR 00247582784 No Longer Active Brii Russ APRN Active PREDNISONE 20 MG ORAL TABLET 1 tablet daily for airway inflammat ion PREDNISONE 68671609647 No Longer Active Brii Russ APRN A ctive CEFDINIR 300 MG ORAL CAPSULE 1 po BID x 10 days CEFDINIR 44344007425 No Longer Active Jono Gagnon DO Active FLONASE 50 MCG/ACT NASAL SUSPENSION 1 spray each nostr il twice daily for allergies and runny nose until gone FLUT ICASONE PROPIONATE 03744426781 No Longer Active Jono Gagnon DO Active ALPRAZOLAM 0.25 MG ORAL TABLET 1 tablet by mouth every 8 hours as needed for stress ALPRAZOLAM 93117810656 No Longer Active Jono Gagnon DO Active ZITHROMAX Z-EMIL 250 MG ORAL TABLET 2 today, then 1 daily for 4 d ays AZITHROMYCIN 71639878286 No Longer Active Arie Casper MD Active PREDNISONE 20 MG ORAL TABLET 2 tabs daily for 3 days, 1 tab daily for 3 days, 1/2 tab daily for 2 days PREDNISONE 15849901449 No Longer Active Brii Luchoboris WHITE METAL CORROSION PROOFER Active PREDNISONE 20 MG ORAL TABLET 1 tablet twice daily for 2 days, then 1 tablet once daily for 2 days PREDNISONE 88990515220 No Longer Active Brii Luchoboris WHITE METAL CORROSION PROOFER Active PROMETHAZINE HCL 12.5 MG ORAL TABLET 1 tablet by mouth every 6 hours as needed for nausea/vomiting PROMETHAZINE HCL 46711736001 No L onger Active Jono Gagnon DO Active CITRATE OF MAGNESIA ORAL SOLUTION 1 bottle today for constipatio n MAGNESIUM CITRATE 02187244008 No Longer Active Jono Gagnon DO Active ZOFRAN 4 MG ORAL TABLET 1 TAB PO Q 6 HRS PRN NAUSEA 07/10/15 ONDANSETRON HCL 23821942155 No Longer Active Brii Russ APRN Acti ve LOMOTIL 2.5-0.025 MG ORAL TABLET 1 to 2 four times a day as needed for diarrhea DIPHENOXYLATE-ATROPINE 59027860458 No Longer Active January Russ APRN Active AMOXICILLIN 500 MG ORAL TABLET 2 tabs twice a day for 10 days 07/09/11 AMOXICILLIN 15175839490 No Longer Active Brii Russ APRN Active CYCLOBENZAPRINE HCL 10 MG ORAL TABLET 1/2 - 1 tablet b y mouth three times daily as needed for muscle spasm/pain CYCLOBENZAPRINE HCL 81367842268 No Longer Active Arie Casper MD Active LOMOTIL 2.5-0.025 MG ORAL TABLET 1 to 2 four times a day as needed for diarrhea DIPHENOXYLATE-ATROPINE 60532235827 No Longer Active Fozia Casper MD Active MACROBID 100 MG ORAL CAPSULE 1 cap by mouth twice daily NITROFURANTOIN MONOHYD MACRO 74629526516 No Longer Active Arie Casper MD Active ZYRTEC ALLERGY 10 MG ORAL CAPSULE 1 po qd CE TIRIZINE HCL 80183915340 No Longer Active Arie Casper MD Active AZITHROMYCIN 250 MG ORAL TABLET 2 po qd x 1 day, then 1 po q d x 4 days AZITHROMYCIN 74100048949 No Longer Active Jessica salgado APRN Active PREDNISONE 20 MG ORAL TABLET 2 tabs daily for 3 days, 1 tab daily for 3 days, 1/2 tab daily for 2 days PREDNISONE 69927158054 No Longer Active Jessica Heaton APRN Active PROMETHAZINE HCL 25 MG ORAL TABLET 1 four times a day as nee ded for vomiting PROMETHAZINE HCL 47702174448 No Longer Active Myrna Roberto MD Active BACTRIM DS 800-160 MG ORAL TABLET 1 twice a day 05/30 SULFAMETHOXAZOLE-TRIMETHOPRIM 35087974970 No Longer Active Myrna Roberto MD Active VICKS DAYQUIL SEVERE COLD/FLU TABLET 1 tab every 6 hours prn 201 02/22/17 [id number] TABS 77734207906 No Longer Active Chris Roberto MD Active GUAIFENESIN-CODEINE 100-10 MG/5ML ORAL SYRUP 2 tsp every 6 hours prn GUAIFENESIN-CODEINE 55912927196 No Longer Active Myrna Roberto MD Active NAPROXEN 500 MG ORAL TABLET one tab PO BID NAPR OXEN 16094220972 No Longer Active Myrna Roberto MD Active AUGMENTIN 875-125 MG ORAL TABLET 1 tab by mouth twice daily with food AMOXICILLIN-POT CLAVULANATE 10369152956 No Longer Act zaid Liliana Estrada MD PhD Active AMOXICILLIN 500 MG ORAL CAPSULE 1 tab by mouth 3 times daily 201 02/21/05 AMOXICILLIN 79064008445 No Longer Active Liliana Estrada MD PhD Active TESSALON PERLES 100 MG ORAL CAPSULE 1 tablet by mouth 3 times da cory BENZONATATE 00430629547 No Longer Active Liliana Estrada MD PhD Active FLAGYL 500 MG ORAL TABLET 1 tablet by mouth two times daily 2014 METRONIDAZOLE 34350399133 No Longer Active Nilam Doran tive ZITHROMAX 250 MG ORAL TABLET 2 po today, then 1 po q days 2-5 20 06/08/16 AZITHROMYCIN 29244322491 No Longer Active Arie Casper MD Active VITAMINS 0.8 MG ORAL TABLET take 1 tab po qday [id number] 05405051790 No Longer Active Arie Casper MD Active IBUPROFEN 800 MG ORAL TABLET take one po Q 8 hours 201 02/01/16 IBUPROFEN 76093955628 No Longer Active Arie Casper MD Acti ve [facility] TUSSIN COUGH/COLD CF 5-10-100 MG/5ML ORAL LIQUID 2 teasp oons every 4 hours [id number] 92839743495 No Longer Active Blaine Casper MD Active COMTREX COLD/COUGH DAY/NITE MS 5-2-10-325 MG ORAL 2 caps deja ry 4 hours [id number] 65250530530 No Longer Active Da aleksandra Casper MD Active CHLORASEPTIC MAX SORE THROAT 15-10 MG MOUTH/THROAT LOZENGE 1 every 2 hours prn BENZOCAINE-MENTHOL 34282028849 No Longer Active Arie Casper MD Active PREDNISONE 20 MG ORAL TABLET 2 tabs daily for 3 days, 1 tab daily for 3 days, 1/2 tab daily for 2 days PREDNISONE 12869113495 No Longer Active Jose Zhong MD Active AZITHROMYCIN 250 MG ORAL TABLET 2 po qd x 1 day, then 1 po q d x 4 days AZITHROMYCIN 38448773625 No Longer Active Jose Mcwilliams MD Active ZOFRAN ODT 4 MG ORAL TABLET DISINTEGRATING 1 po q6hr PRN Nausea ONDANSETRON 73305024364 No Longer Active Rich Rosales MD Active ZOFRAN 4 MG ORAL TABLET 1 tablet every 4 hours ONDANSETRON HCL 48955597255 No Longer Active Rich Rosales MD Activ e MUCINEX 600 MG ORAL TABLET EXTENDED RELEASE 12 HOUR Ta ke 1-2 tablets every 12 hours GUAIFENESIN 97262366076 No Longer Active Rich Rosales MD Active BACTRIM 400-80 MG ORAL TABLET take one po BID SULFAMETHOXAZOLE-TRIMETHOPRIM 10335514968 No Longer Active Abelardo HERNANDEZ Active AZITHROMYCIN 500 MG ORAL TABLET 1 PO q day x 6 days 03/02/23 AZITHROMYCIN 96361882333 No Longer Active Tin HERNANDEZ Activ e ZITHROMAX 250 MG ORAL TABLET 2 po today, then 1 po q days 2-5 20 10/03/08 AZITHROMYCIN 71319235567 No Longer Active Arie Casper MD Active ZITHROMAX 250 MG ORAL TABLET 2 po today, then 1 po q days 2-5 20 09/23/25 AZITHROMYCIN 40368188079 No Longer Active Arei Casper MD Active AMOXICILLIN 500 MG ORAL CAPSULE 1 tab by mouth 3 times daily 201 11/24/09 AMOXICILLIN 81004148997 No Longer Active Arie Casper MD Active BACTRIM DS 800-160 MG ORAL TABLET 1 tab by mouth twice daily 201 11/03/14 TRIMETHOPRIM-SULFAMETHOXAZOLE 68414565986 No Longer Active Fozia Casper MD Active AMOXICILLIN 500 MG ORAL TABLET take 1 tab po TID 08/05 AMOXICILLIN 63054389156 No Longer Active Arie Casper MD Acti ve BACTRIM DS 800-160 MG ORAL TABLET 1 tab by mouth twice daily 201 11/03/14 BACTRIM DS 800-160 MG ORAL TABLET 329736 TRIMETHOPRIM-SULFAMETHOXAZOLE Inactive MUCINEX 600 MG ORAL TABLET EXTENDED RELEASE 12 HOUR Ta ke 1-2 tablets every 12 hours MUCINEX 600 MG ORAL TABLET EXTENDED RELEA SE 12 HOUR GUAIFENESIN Inactive ZOFRAN 4 MG ORAL TABLET 1 tablet every 4 hours ZOFRAN 4 MG ORAL TABLET 918566 ONDANSETRON HCL Inactive ZOFRAN ODT 4 MG [...] COLD/COUGH DAY/NITE MS 5-2-10-325 MG ORA L [id number] Inactive [facility] TUSSIN COUGH/COLD CF 5-10-100 MG/5ML ORAL LIQUID 2 teasp oons every 4 hours [facility] TUSSIN COUGH/COLD CF 5-10-100 MG/5ML ORAL LI QUID [id number] Inactive IBUPROFEN 800 MG ORAL TABLET take one po Q 8 hours 201 02/01/16 IBUPROFEN 800 MG ORAL TABLET 703822 IBUPROFEN Inactive VITAMINS 0.8 MG ORAL TABLET take 1 tab po qday VITAMINS 0.8 MG ORAL TABLET [id number] E-FA Inactive TESSALON PERLES 100 MG ORAL CAPSULE 1 tablet by mouth 3 times da cory TESSALON PERLES 100 MG ORAL CAPSULE 349809 BENZONATATE Inactive AMOXICILLIN 500 MG ORAL CAPSULE 1 tab by mouth 3 times daily 201 02/21/05 AMOXICILLIN 500 MG ORAL CAPSULE 797518 AMOXICILLIN Inactive GUAIFENESIN-CODEINE 100-10 MG/5ML ORAL SYRUP 2 tsp every 6 hours prn GUAIFENESIN-CODEINE 100-10 MG/5ML ORAL SYRUP 560810 GUAIFENESIN-CODEINE Inactive VICKS DAYQUIL SEVERE COLD/FLU TABLET 1 tab every 6 hours prn 201 02/22/17 VICKS DAYQUIL SEVERE COLD/FLU TABLET PHENYLEPHRI EJ-IB-[id number]-APAP TABS Inactive BACTRIM DS 800-160 MG ORAL TABLET 1 twice a day 05/30 BACTRIM DS 800-160 MG ORAL TABLET 136573 SULFAMETHOXAZOLE-TRIMETHOPRIM Inactiv e PROMETHAZINE HCL 25 MG ORAL TABLET 1 four times a day as nee ded for vomiting PROMETHAZINE HCL 25 MG ORAL TABLET 538233 PROMETHAZINE HCL Inactive ZYRTEC ALLERGY 10 MG ORAL CAPSULE 1 po qd ZYRTEC ALLERGY 10 MG ORAL CAPSULE CETIRIZINE HCL Inactive MACROBID 100 MG ORAL CAPSULE 1 cap by mouth twice daily MACROBID 100 MG ORAL CAPSULE 7275503 NITROFURANTOIN MONOHYD MACRO In active LOMOTIL 2.5-0.025 MG ORAL TABLET 1 to 2 four times a day as needed for diarrhea LOMOTIL 2.5-0.025 MG ORAL TABLET 0891520 DIPHENOXYLATE-ATROPINE Inactive CYCLOBENZAPRINE HCL 10 MG ORAL TABLET 1/2 - 1 tablet b y mouth three times daily as needed for muscle spasm/pain CYCLOBEN ZAPRINE HCL 10 MG ORAL TABLET 500483 CYCLOBENZAPRINE HCL Inactive AMOXICILLIN 500 MG ORAL TABLET 2 tabs twice a day for 10 days 20 07/09/11 AMOXICILLIN 500 MG ORAL TABLET 122473 AMOXICILLIN I nactive LOMOTIL 2.5-0.025 MG ORAL TABLET 1 to 2 four times a day as needed for diarrhea LOMOTIL 2.5-0.025 MG ORAL TABLET 0287369 DIPHENOXYLATE-ATROPINE Inactive ZOFRAN 4 MG ORAL TABLET 1 TAB PO Q 6 HRS PRN NAUSEA 07/10/15 ZOFRAN 4 MG ORAL TABLET 097705 ONDANSETRON HCL Inactive CITRATE OF MAGNESIA ORAL SOLUTION 1 bottle today for constipatio n CITRATE OF MAGNESIA ORAL SOLUTION 6171698 MAGNESIUM CITR ATE Inactive PROMETHAZINE HCL 12.5 MG ORAL TABLET 1 tablet by mouth every 6 hours as needed for nausea/vomiting PROMETHAZINE HCL 12.5 MG ORA L TABLET 286492 PROMETHAZINE HCL Inactive PREDNISONE 20 MG ORAL TABLET 1 tablet twice daily for 2 days, then 1 tablet once daily for 2 days PREDNISONE 20 MG ORAL TABLET 792079 PREDNISONE Inactive ALPRAZOLAM 0.25 MG ORAL TABLET 1 tablet by mouth every 8 hours as needed for stress ALPRAZOLAM 0.25 MG ORAL TABLET 723226 ALPRA ZOLAM Inactive FLONASE 50 MCG/ACT NASAL SUSPENSION 1 spray each nostr il twice daily for allergies and runny nose until gone FLON ASE 50 MCG/ACT NASAL SUSPENSION FLUTICASONE PROPIONATE Inactive PREDNISONE 20 MG ORAL TABLET 1 tablet daily for airway inflammat ion PREDNISONE 20 MG ORAL TABLET 073435 PREDNISONE [place] ctive NAPROXEN 500 MG ORAL TABLET Take 1 tab BID NAPROXEN 500 MG ORAL TABLET 371034 NAPROXEN Inactive ZOLOFT 50 MG ORAL TABLET 1 tablet by mouth daily 12/08 ZOLOFT 50 MG ORAL TABLET 917361 SERTRALINE HCL Inactive LOMOTIL 2.5-0.025 MG ORAL TABLET 1 tab po four times a day as needed for diarrhea LOMOTIL 2.5-0.025 MG ORAL TABLET 3657233 DIPHENOXYLATE-ATROPINE Inactive CETIRIZINE HCL 10 MG ORAL TABLET 1 po qd PRN Allergies CETIRIZINE HCL 10 MG ORAL TABLET 0861689 CETIRIZINE HCL Inactiv e TUSSIONEX PENNKINETIC ER 10-8 MG/5ML ORAL SUSPENSION E XTENDED RELEASE 5ml po q12hr PRN Cough TUSSIONEX PENNKINETI C ER 10-8 MG/5ML ORAL SUSPENSION EXTENDED RELEASE HYDROCOD POLST-CHLORPHEN POLST I nactive NEXPLANON IMPLANT right arm subcutaneously NEXPLANON IMPLANT ETONOGESTREL IMPL Inactive PROTONIX 40 MG ORAL TABLET DELAYED RELEASE 1 po q a.m. PROTONIX 40 MG ORAL TABLET DELAYED RELEASE 416053 PANTOPRAZOLE SODI UM Inactive CHERATUSSIN AC 100-10 MG/5ML ORAL SYRUP 1 tsp by mouth every 4 hours as needed for cough CHERATUSSIN AC 100-10 MG/5ML ORAL SYRUP 9 02404 GUAIFENESIN-CODEINE Inactive GUAIFENESIN DM 400-20 MG ORAL [...] tid K EFLEX 500 MG ORAL CAPSULE 001665 CEPHALEXIN Inactive DIFLUCAN 100 MG ORAL TABLET 1 tablet by mouth daily, R EPEAT 2ND DOSE IN 7 DAYS IF STILL SYMPTOMATIC DIFLUCAN 100 MG ORAL TABLET 64276 8 FLUCONAZOLE Inactive PROTONIX 40 MG ORAL TABLET DELAYED RELEASE 1 pill by m outh daily, for acid reflux PROTONIX 40 MG ORAL TABLET DELAYED RELEAS E 194992 PANTOPRAZOLE SODIUM Inactive ALPRAZOLAM 0.25 MG ORAL TABLET 1 tablet by mouth twice a day as needed for stress/anxiety ALPRAZOLAM 0.25 MG ORAL TABLET 464394 ALPRAZOLAM Inactive ESCITALOPRAM OXALATE 10 MG ORAL TABLET take 1 tab po qhs for mod ESCITALOPRAM OXALATE 10 MG ORAL TABLET 195346 ESCITALOP JO OXALATE Inactive AMOXICILLIN 500 MG ORAL TABLET take 1 tab po TID 08/05 AMOXICILLIN 500 MG ORAL TABLET 771818 AMOXICILLIN Inactive AMOXICILLIN 500 MG ORAL CAPSULE 1 tab by mouth 3 times daily 201 11/24/09 AMOXICILLIN 500 MG ORAL CAPSULE 704211 AMOXICILLIN Inactive ZITHROMAX 250 MG ORAL TABLET 2 po today, then 1 po q days 2-5 20 09/23/25 ZITHROMAX 250 MG ORAL TABLET 564879 AZITHROMYCIN Arlen ctive ZITHROMAX 250 MG ORAL TABLET 2 po today, then 1 po q days 2-5 20 10/03/08 ZITHROMAX 250 MG ORAL TABLET 125725 AZITHROMYCIN Arlen ctive AZITHROMYCIN 500 MG ORAL TABLET 1 PO q day x 6 days 20 03/02/23 AZITHROMYCIN 500 MG ORAL TABLET 4357404 AZITHROMYCIN Inactive BACTRIM 400-80 MG ORAL TABLET take one po BID BACTRIM 400- 80 MG ORAL TABLET 135923 SULFAMETHOXAZOLE-TRIMETHOPRIM Inactive AZITHROMYCIN 250 MG ORAL TABLET 2 po qd x 1 day, then 1 po q d x 4 days AZITHROMYCIN 250 MG ORAL TABLET 341084 AZITHROMY ALLISON Inactive PREDNISONE 20 MG ORAL TABLET 2 tabs daily for 3 days, 1 tab daily for 3 days, 1/2 tab daily for 2 days PREDNISONE 20 MG ORAL T ABLET 394515 PREDNISONE Inactive ZITHROMAX 250 MG ORAL TABLET 2 po today, then 1 po q days 2-5 20 06/08/16 ZITHROMAX 250 MG ORAL TABLET 506035 AZITHROMYCIN Arlen ctive FLAGYL 500 MG ORAL TABLET 1 tablet by mouth two times daily 2014 FLAGYL 500 MG ORAL TABLET 673585 METRONIDAZOLE Inacti ve AUGMENTIN 875-125 MG ORAL TABLET 1 tab by mouth twice daily with food AUGMENTIN 875-125 MG ORAL TABLET 001223 AMOXICIL ELSA-POT CLAVULANATE Inactive NAPROXEN 500 MG ORAL TABLET one tab PO BID NAPROXEN 500 MG ORAL TABLET 376784 NAPROXEN Inactive PREDNISONE 20 MG ORAL TABLET 2 tabs daily for 3 days, 1 tab daily for 3 days, 1/2 tab daily for 2 days PREDNISONE 20 MG ORAL T ABLET 273065 PREDNISONE Inactive AZITHROMYCIN 250 MG ORAL TABLET 2 po qd x 1 day, then 1 po q d x 4 days AZITHROMYCIN 250 MG ORAL TABLET 086127 AZITHROMY ALLISON Inactive PREDNISONE 20 MG ORAL TABLET 2 tabs daily for 3 days, 1 tab daily for 3 days, 1/2 tab daily for 2 days PREDNISONE 20 MG ORAL T ABLET 510323 PREDNISONE Inactive ZITHROMAX Z-EMIL 250 MG ORAL TABLET 2 today, then 1 daily for 4 d ays ZITHROMAX Z-EMIL 250 MG ORAL TABLET 947711 AZITHROMYCIN Inactive CEFDINIR 300 MG ORAL CAPSULE 1 po BID x 10 days 12/18 CEFDINIR 300 MG ORAL CAPSULE 421573 CEFDINIR Inactive CEFDINIR 300 MG ORAL CAPSULE 1 po BID x 10 days CEFDINIR 300 MG ORAL CAPSULE 209836 CEFDINIR Inactive PREDNISONE 20 MG ORAL TABLET 2 tabs daily for 3 days, 1 tab daily for 3 days, 1/2 tab daily for 2 days PREDNISONE 20 MG ORAL T ABLET 655086 PREDNISONE Inactive BACTRIM DS 800-160 MG ORAL TABLET 1 tab by mouth twice daily 201 05/02/30 BACTRIM DS 800-160 MG ORAL TABLET 100201 TRIMETHOPRIM-SULFAMETHOXAZOLE Inactive ZITHROMAX Z-EMIL 250 MG ORAL TABLET 2 today, then 1 daily for 4 d ays ZITHROMAX Z-EMIL 250 MG ORAL TABLET 710937 AZITHROMYCIN Inactive TAMIFLU 75 MG ORAL CAPSULE 1 po BID x 5 days 0 TAMIFLU 75 MG ORAL CAPSULE 908847 OSELTAMIVIR PHOSPHATE Inactive CEFDINIR 300 MG ORAL CAPSULE 1 po BID x 10 days 2018/01/03 CEFDINIR 300 MG ORAL CAPSULE 431091 CEFDINIR Inactive ZITHROMAX Z-EMIL 250 MG TABS Take two tablets today and then 1 tablet daily for 4 days ZITHROMAX Z-EMIL 250 MG TABS 236587 AZITHROM YCIN Inactive AMOXICILLIN 875 MG ORAL TABLET 1 tab by mouth twice daily 1 AMOXICILLIN 875 MG ORAL TABLET 055294 AMOXICILLIN Inactive Advance Directives Directive Description Start [...] 11 .0-15.0 platelet count 280 THOUSAND/UL 10*3/mm3 550-984 6196/02/18 mean platelet volume 11.6 fL 7.5-12.5 Lab [...] mg/dL Encounters Code Encounter Date Provider Facility CPT-93506 Level 4 Est. Patient 16:39:44 ADVERTISING SALES AGENT Jose Zhong MD [facility] CPT-23534 [id number] Vst-Est Level IV 13:45:[address] [facility] [id number] Vst-Est Level III 09:41:31 CDT Arie Casper MD [facility]-70329 [id number] Vst-Est Level III 18:20:[address] [facility]-86932 85421-Ibi Vst-Est Level III 17:21:[address] [facility]-96679 75627-Ilt Vst-Est Level IV 13:30:22 C NIC Casper MD [facility] CPT-95537 Level 4 Est. Patient 13:05:26 CDT Myrna maldonado MD [facility]-28708 39047-Yvi Vst-Est Level IV 20:50:21 C DT Arie Casper MD [facility] CPT-23042 Level 3 Est. Patient 11:49:34 ADVERTISING SALES AGENT Jessica boyd [facility]-91414 Level 3 Est. Patient 14:55:50 ADVERTISING SALES AGENT Jose Zhong MD [facility]-92410 Level 3 Est. Patient 10:21:41 ADVERTISING SALES AGENT Arie mcqueen MD [facility] CPT-31698 Level 3 Est. Patient 11:35:15 ADVERTISING SALES AGENT Arie mcqueen MD [facility] CPT-95784 Level 3 Est. Patient 15:40:28 CDT Brii Are ll [facility] CPT-84348 Level 3 Est. Patient 16:40:36 CDT Arie mcqueen MD [facility] CPT-75076 Level 4 Est. Patient 15:29:22 ADVERTISING SALES AGENT Arie mcqueen MD [facility] CPT-77894 Level 3 Est. Patient 15:18:16 ADVERTISING SALES AGENT Jono black [facility] CPT-51518 Level 4 Est. Patient 12:08:40 ADVERTISING SALES AGENT Brii Are ll [facility] CPT-21982 Level 3 Est. Patient 09:24:42 CDT Brii Are [facility] CPT-97162 Level 3 Est. Patient 09:12:56 CDT Arie mcqueen MD [facility] CPT-55539 Level 3 Est. Patient 16:40:54 CDT Jose Zhong MD [facility] CPT-29106 Level 2 Est. Patient 13:01:13 CDT Brii Are ll [facility] CPT-30856 Level 3 Est. Patient 11:55:30 ADVERTISING SALES AGENT Jono black [facility] CPT-07560 Level 3 Est. Patient 09:52:36 ADVERTISING SALES AGENT Brii Are ll [facility] CPT-86357 Level 3 Est. Patient 16:25:33 ADVERTISING SALES AGENT Rich Rosales MD [facility] CPT-37608 Level 3 Est. Patient 20:33:55 CDT Arie mcqueen MD [facility] CPT-20253 Level 3 Est. Patient 14:18:20 CDT Rich Rosales MD [facility] CPT-73087 Level 4 Est. Patient 09:34:31 CDT Arie mcqueen MD [facility] CPT-70796 Level 3 Est. Patient 09:08:55 ADVERTISING SALES AGENT Liliana vincent MD PhD [facility] CPT-23410 Level 3 Est. Patient 16:44:07 ADVERTISING SALES AGENT Arie mcqueen MD [facility] CPT-54863 Level 3 Est. Patient 10:44:27 CDT Arie mcqueen MD [facility] CPT-22334 Level 3 Est. Patient 08:55:41 CDT Jose Zhong MD [facility] CPT-13299 Level 3 Est. Patient 18:37:31 CDT Liliana vincent MD PhD [facility] CPT-37285 Level 3 Est. Patient 14:28:23 CDT Abelardo HERNANDEZ [facility] CPT-46583 Level 3 Est. Patient 15:18:13 ADVERTISING SALES AGENT Arie mcqueen MD [facility] CPT-21613 Level 3 Est. Patient 10:11:29 ADVERTISING SALES AGENT Arie mcqueen MD [facility] CPT-98203 Level 3 Est. Patient 10:55:57 ADVERTISING SALES AGENT Jono black DO [facility] CPT-12661 Level 3 Est. Patient 17:29:05 CDT Arie mcqueen MD [facility] Procedures Code Procedure Name Date Entry Date Standard Desc ription CPT-87076 Sono OB transvag XRAY USE ONLY 17:12:53 CS T CPT-65118 Sono OB transvag XRAY USE ONLY 17:11:12 CS T CPT-50497 UHCG Urine - MARC ONLY 12:13:59 ADVERTISING SALES AGENT 12/11 CPT-88756 Spec Collection and Handling Fee 12:13:[address] CPT-17481 Visit 12:13:59 ADVERTISING SALES AGENT CPT-93402 First Vx - Ix admin via ID I M or jet injects without counseling by physician 13:00:15 ADVERTISING SALES AGENT CPT-06566 Flulaval Intramuscular Injectable 13:00:15 ADVERTISING SALES AGENT CPT-44055 Urine Dip (Floor Use Only) 12:20:20 ADVERTISING SALES AGENT 201 06/03/24 CPT-96851 Sono Soft Tissue Head and Neck - XRAY US E ONLY 17:10:14 CDT CPT-19889 Ear Wash with irrigation 17:21:41 CDT 07/04 CPT-96178 Nexplanon Removal 15:40:28 CDT CPT-67412 Sono transvag pelvis non OB uterus ovari es cervix - XRAY USE ONLY 08:58:14 ADVERTISING SALES AGENT CPT-55868 UA w micro - LAB USE ONLY 16:04:56 ADVERTISING SALES AGENT 2015 CPT-76534 Wet Prep/GEN - LAB USE ONLY 16:04:56 ADVERTISING SALES AGENT 20 08/10/29 CPT-96704 First Vx - Ix admin via ID I M or jet injects without counseling by physician 16:57:10 CDT CPT-45544 Fluzone Preservative Free Intramuscular Suspension 16:57:10 CDT CPT-J0696 Rocephin 1000 mg (Ceftriaxone) 11:49:23 CDT CPT-J1040 Depo Medrol 80 mg (Methyl Prednisolone A cetate) 11:49:23 CDT CPT-J1100 Decadron 8mg (Dexamethasone) 11:49:23 CDT 2 CPT-27518 Abx/Therapy Injection 11:49:23 CDT CPT-66892 Abx/Therapy Injection 11:49:23 CDT CPT-68224 Abd compl w upright 09:07:26 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
--- OUTSIDE RECORDS SUMMARY | 2020-03-03 06:54 | XMS REPORT | Clinical Summary ---
Author Author Dena, Diamante Marcelo Organization [facility] Address Unknown Phone Unavailable Allergies, Adverse Reactions, [...] acute or chronic Fatigue 780.79 Resolved Jose Zohng MD Other malaise and fatigue Insect bite [...] frequency 788.41 Inactive Roseann Crawford, [facility] Urinary frequency Urinary frequency 788.41 Resolved [...] Vaccination for Prophylaxis V04.81 Inactive Brii Russ CEMETERY MANAGER Need for prophylactic vaccin ation and [...] MD Supervision of unspecified high -risk FH COLON CANCER ICD-V16.0 Inactive Jose Zhong MD FH DIABETES ICD-V18.0 Inactive Jose Zhong MD 201 01/29/08 FH BREAST CANCER ICD-V16.3 Inactive Jose Sin D SINUSITIS ICD-473.9 Inactive Liliana Estrada MD Ph D CONTRACEPTIVE MANAGEMENT ICD-V25.09 Inactive Myrna Roberto MD IUD removal ICD-V25.42 Inactive Liliana Estrada MD PhD ACUTE FRONTAL SINUSITIS ICD-461.1 Inactive Meghan Estrada MD PhD Abdominal pain ICD-789.00 Inactive Jose monreal MD Diarrhea ICD-787.91 Inactive Jose Marcelo Thumb pain, right ICD-729.5 Inactive Jose pelayo MD CYSTITIS ICD-595.9 Inactive Liliana Estrada MD Ph D Fever ICD-780.60 Inactive Liliana Estrada MD PhD [...] acute ICD-461.9 Inactive Liliana cheema MD PhD Cerumen impaction, right ICD-380.4 Inactive Jose Zhong [...] 3-4 times per day 12/11 PYRIDOXINE HCL 52355085391 Active Myrna Roebrto MD Active UNISOM SLEEPTABS 25 MG ORAL TABLET one tab PO qhs DOXYLAMINE SUCCINATE (SLEEP) 34051117792 Active Myrna Roberto MD Active TYLENOL 325 MG ORAL CAPSULE PRN ACETAMINOPHEN 000 44179684 Active Brii Pacheco Active ESCITALOPRAM OXALATE 10 MG ORAL TABLET take 1 tab po qhs for mod ESCITALOPRAM OXALATE 65745738782 No Longer Active Brii Pacheco Active ALPRAZOLAM 0.25 MG ORAL TABLET 1 tablet by mouth twice a day as needed for stress/anxiety ALPRAZOLAM 65010901251 No Longer Active Brii Pacheco Active PROTONIX 40 MG ORAL TABLET DELAYED RELEASE 1 pill by m outh daily, for acid reflux PANTOPRAZOLE SODIUM 27833757275 No Longer Activ e Brii Pacheco Active DIFLUCAN 100 MG ORAL TABLET 1 tablet by mouth daily, R EPEAT 2ND DOSE IN 7 DAYS IF STILL SYMPTOMATIC FLUCONAZOLE 11765325084 No Long er Active Nilam Plattida Active KEFLEX 500 MG ORAL CAPSULE 1 po tid CEPHALEXI N 07394966610 No Longer Active Tali Devi PA-C Active CONCEPT DHA 53.5-38-1 MG ORAL CAPSULE 1 tablet daily [id number] 3 61147123045 Active Oxana Souza LPN Active AMOXICILLIN 875 MG ORAL TABLET 1 tab by mouth twice daily 1 AMOXICILLIN 03036481829 No Longer Active Brii Russ CEMETERY MANAGER Active TUSSIONEX PENNKINETIC ER 10-8 MG/5ML ORAL SUSPENSION E XTENDED RELEASE 5ml po q12hr PRN Cough HYDROCOD POLST-CHLORPHEN POLST 5 4770496837 No Longer Active Myrna Roberto MD Active ZITHROMAX Z-EMIL 250 MG TABS Take two tablets today and then 1 tablet daily for 4 days AZITHROMYCIN 35751718674 No Longer Active Flaco Rosales MD Active GUAIFENESIN DM 400-20 MG ORAL TABLET 1 pill by mouth t wice daily, if needed for cough DEXTROMETHORPHAN-GUAIFENESIN 50677366177 No Longer Active Rich Rosales MD Active CEFDINIR 300 MG ORAL CAPSULE 1 po BID x 10 days CEFDINIR 00494797052 No Longer Active Jessica Heaton APRN Active CHERATUSSIN AC 100-10 MG/5ML ORAL SYRUP 1 tsp by mouth every 4 hours as needed for cough GUAIFENESIN-CODEINE 74984173356 No Longe r Active Jessica Heaton APRN Active TAMIFLU 75 MG ORAL CAPSULE 1 po BID x 5 days 0 OSELTAMIVIR PHOSPHATE 70928300381 No Longer Active Jose Zhong MD Activ e ZITHROMAX Z-EMIL 250 MG ORAL TABLET 2 today, then 1 daily for 4 d ays AZITHROMYCIN 37110052994 No Longer Active Arie Casper MD Active PROTONIX 40 MG ORAL TABLET DELAYED RELEASE 1 po q a.m. PANTOPRAZOLE SODIUM 66114898953 No Longer Active Arie Casper MD Active BACTRIM DS 800-160 MG ORAL TABLET 1 tab by mouth twice daily 201 05/02/30 TRIMETHOPRIM-SULFAMETHOXAZOLE 43058785485 No Longer Active R waKLELIE Marcos Active NEXPLANON IMPLANT right arm subcutaneously ETONOGESTREL IMPL 09677465974 No Longer Active Brii Russ APRN Active TUSSIONEX PENNKINETIC ER 10-8 MG/5ML ORAL SUSPENSION E XTENDED RELEASE 5ml po q12hr PRN Cough HYDROCOD POLST-CHLORPHEN POLST 5 3895708180 No Longer Active Brii Russ APRN Active CETIRIZINE HCL 10 MG ORAL TABLET 1 po qd PRN Allergies CETIRIZINE HCL 12719548156 No Longer Active Brii Russ APRN Activ e PREDNISONE 20 MG ORAL TABLET 2 tabs daily for 3 days, 1 tab daily for 3 days, 1/2 tab daily for 2 days PREDNISONE 03065124868 No Longer Active Arie Casper MD Active LOMOTIL 2.5-0.025 MG ORAL TABLET 1 tab po four times a day as needed for diarrhea DIPHENOXYLATE-ATROPINE 63783969696 No Lo nger Active Arie Casper MD Active ZOLOFT 50 MG ORAL TABLET 1 tablet by mouth daily 12/08 SERTRALINE HCL 95871725153 No Longer Active Arie Casper MD Ac tive NAPROXEN 500 MG ORAL TABLET Take 1 tab BID NAPR OXEN 78575093178 No Longer Active Arie Casper MD Active CEFDINIR 300 MG ORAL CAPSULE 1 po BID x 10 days CEFDINIR 86775496071 No Longer Active Brii Russ APRN Active PREDNISONE 20 MG ORAL TABLET 1 tablet daily for airway inflammat ion PREDNISONE 18034636051 No Longer Active Brii Russ APRN A ctive CEFDINIR 300 MG ORAL CAPSULE 1 po BID x 10 days CEFDINIR 49154770770 No Longer Active Jono Gagnon DO Active FLONASE 50 MCG/ACT NASAL SUSPENSION 1 spray each nostr il twice daily for allergies and runny nose until gone FLUT ICASONE PROPIONATE 50285300644 No Longer Active Jono Gagnon DO Active ALPRAZOLAM 0.25 MG ORAL TABLET 1 tablet by mouth every 8 hours as needed for stress ALPRAZOLAM 37427346117 No Longer Active Jono Gagnon DO Active ZITHROMAX Z-EMIL 250 MG ORAL TABLET 2 today, then 1 daily for 4 d ays AZITHROMYCIN 66651461526 No Longer Active Arie Casper MD Active PREDNISONE 20 MG ORAL TABLET 2 tabs daily for 3 days, 1 tab daily for 3 days, 1/2 tab daily for 2 days PREDNISONE 62552057860 No Longer Active Brii Lucholl CEMETERY MANAGER Active PREDNISONE 20 MG ORAL TABLET 1 tablet twice daily for 2 days, then 1 tablet once daily for 2 days PREDNISONE 87725492488 No Longer Active Brii Luchoboris CEMETERY MANAGER Active PROMETHAZINE HCL 12.5 MG ORAL TABLET 1 tablet by mouth every 6 hours as needed for nausea/vomiting PROMETHAZINE HCL 05900728889 No L onger Active Jono Gagnon DO Active CITRATE OF MAGNESIA ORAL SOLUTION 1 bottle today for constipatio n MAGNESIUM CITRATE 15474889745 No Longer Active Jono Gagnon DO Active ZOFRAN 4 MG ORAL TABLET 1 TAB PO Q 6 HRS PRN NAUSEA 07/10/15 ONDANSETRON HCL 74052756938 No Longer Active Brii Russ APRN Acti ve LOMOTIL 2.5-0.025 MG ORAL TABLET 1 to 2 four times a day as needed for diarrhea DIPHENOXYLATE-ATROPINE 39526826788 No Longer Active January Russ APRN Active AMOXICILLIN 500 MG ORAL TABLET 2 tabs twice a day for 10 days 07/09/11 AMOXICILLIN 59734774292 No Longer Active Brii Russ APRN Active CYCLOBENZAPRINE HCL 10 MG ORAL TABLET 1/2 - 1 tablet b y mouth three times daily as needed for muscle spasm/pain CYCLOBENZAPRINE HCL 35176621451 No Longer Active Arie Casper MD Active LOMOTIL 2.5-0.025 MG ORAL TABLET 1 to 2 four times a day as needed for diarrhea DIPHENOXYLATE-ATROPINE 16868574802 No Longer Active Fozia Casper MD Active MACROBID 100 MG ORAL CAPSULE 1 cap by mouth twice daily NITROFURANTOIN MONOHYD MACRO 35042428822 No Longer Active Arie Casper MD Active ZYRTEC ALLERGY 10 MG ORAL CAPSULE 1 po qd CE TIRIZINE HCL 41043158471 No Longer Active Arie Casper MD Active AZITHROMYCIN 250 MG ORAL TABLET 2 po qd x 1 day, then 1 po q d x 4 days AZITHROMYCIN 19550193755 No Longer Active Jessica salgado APRN Active PREDNISONE 20 MG ORAL TABLET 2 tabs daily for 3 days, 1 tab daily for 3 days, 1/2 tab daily for 2 days PREDNISONE 83287032744 No Longer Active Jessica Heaton APRN Active PROMETHAZINE HCL 25 MG ORAL TABLET 1 four times a day as nee ded for vomiting PROMETHAZINE HCL 81941725354 No Longer Active Myrna Roberto MD Active BACTRIM DS 800-160 MG ORAL TABLET 1 twice a day 05/30 SULFAMETHOXAZOLE-TRIMETHOPRIM 80551737515 No Longer Active Myrna Roberto MD Active VICKS DAYQUIL SEVERE COLD/FLU TABLET 1 tab every 6 hours prn 201 02/22/17 [id number] TABS 94456406928 No Longer Active Chris Roberto MD Active GUAIFENESIN-CODEINE 100-10 MG/5ML ORAL SYRUP 2 tsp every 6 hours prn GUAIFENESIN-CODEINE 06732321720 No Longer Active Myrna Roberto MD Active NAPROXEN 500 MG ORAL TABLET one tab PO BID NAPR OXEN 17793625082 No Longer Active Myrna Roberto MD Active AUGMENTIN 875-125 MG ORAL TABLET 1 tab by mouth twice daily with food AMOXICILLIN-POT CLAVULANATE 96857300323 No Longer Act zaid Liliana Estrada MD PhD Active AMOXICILLIN 500 MG ORAL CAPSULE 1 tab by mouth 3 times daily 201 02/21/05 AMOXICILLIN 43666201500 No Longer Active Liliana Estrada MD PhD Active TESSALON PERLES 100 MG ORAL CAPSULE 1 tablet by mouth 3 times da cory BENZONATATE 46783138253 No Longer Active Liliana Estrada MD PhD Active FLAGYL 500 MG ORAL TABLET 1 tablet by mouth two times daily 2014 METRONIDAZOLE 21939059782 No Longer Active Nilam Doran tive ZITHROMAX 250 MG ORAL TABLET 2 po today, then 1 po q days 2-5 20 06/08/16 AZITHROMYCIN 22726984169 No Longer Active Arie Casper MD Active VITAMINS 0.8 MG ORAL TABLET take 1 tab po qday [id number] 27753814874 No Longer Active Arie Casper MD Active IBUPROFEN 800 MG ORAL TABLET take one po Q 8 hours 201 02/01/16 IBUPROFEN 62503534790 No Longer Active Arie Casper MD Acti ve [facility] TUSSIN COUGH/COLD CF 5-10-100 MG/5ML ORAL LIQUID 2 teasp oons every 4 hours [id number] 49773199588 No Longer Active Blaine Casper MD Active COMTREX COLD/COUGH DAY/NITE MS 5-2-10-325 MG ORAL 2 caps deja ry 4 hours [id number]-APAP 28136228753 No Longer Active Da aleksandra Casper MD Active CHLORASEPTIC MAX SORE THROAT 15-10 MG MOUTH/THROAT LOZENGE 1 every 2 hours prn BENZOCAINE-MENTHOL 20593983392 No Longer Active Arie Casper MD Active PREDNISONE 20 MG ORAL TABLET 2 tabs daily for 3 days, 1 tab daily for 3 days, 1/2 tab daily for 2 days PREDNISONE 48662038358 No Longer Active Jose Zhong MD Active AZITHROMYCIN 250 MG ORAL TABLET 2 po qd x 1 day, then 1 po q d x 4 days AZITHROMYCIN 09839943696 No Longer Active Jose Mcwilliams MD Active ZOFRAN ODT 4 MG ORAL TABLET DISINTEGRATING 1 po q6hr PRN Nausea ONDANSETRON 32322941189 No Longer Active Rich Rosales MD Active ZOFRAN 4 MG ORAL TABLET 1 tablet every 4 hours ONDANSETRON HCL 58811171788 No Longer Active Rich Rosales MD Activ e MUCINEX 600 MG ORAL TABLET EXTENDED RELEASE 12 HOUR Ta ke 1-2 tablets every 12 hours GUAIFENESIN 82586322174 No Longer Active Rich Rosales MD Active BACTRIM 400-80 MG ORAL TABLET take one po BID SULFAMETHOXAZOLE-TRIMETHOPRIM 95478896480 No Longer Active Abelardo HERNANDEZ Active AZITHROMYCIN 500 MG ORAL TABLET 1 PO q day x 6 days 03/02/23 AZITHROMYCIN 55900050563 No Longer Active Tin HERNANDEZ Activ e ZITHROMAX 250 MG ORAL TABLET 2 po today, then 1 po q days 2-5 20 10/03/08 AZITHROMYCIN 02118991915 No Longer Active Arie Casper MD Active ZITHROMAX 250 MG ORAL TABLET 2 po today, then 1 po q days 2-5 20 09/23/25 AZITHROMYCIN 95749245510 No Longer Active Arie Casper MD Active AMOXICILLIN 500 MG ORAL CAPSULE 1 tab by mouth 3 times daily 201 11/24/09 AMOXICILLIN 58476291729 No Longer Active Arie Casper MD Active BACTRIM DS 800-160 MG ORAL TABLET 1 tab by mouth twice daily 201 11/03/14 TRIMETHOPRIM-SULFAMETHOXAZOLE 99570300938 No Longer Active Fozia Casper MD Active AMOXICILLIN 500 MG ORAL TABLET take 1 tab po TID 08/05 AMOXICILLIN 80611579784 No Longer Active Arie Casper MD Acti ve BACTRIM DS 800-160 MG ORAL TABLET 1 tab by mouth twice daily 201 11/03/14 BACTRIM DS 800-160 MG ORAL TABLET 872457 TRIMETHOPRIM-SULFAMETHOXAZOLE Inactive MUCINEX 600 MG ORAL TABLET EXTENDED RELEASE 12 HOUR Ta ke 1-2 tablets every 12 hours MUCINEX 600 MG ORAL TABLET EXTENDED RELEA SE 12 HOUR GUAIFENESIN Inactive ZOFRAN 4 MG ORAL TABLET 1 tablet every 4 hours ZOFRAN 4 MG ORAL TABLET 561448 ONDANSETRON HCL Inactive ZOFRAN ODT 4 MG [...] COLD/COUGH DAY/NITE MS 5-2-10-325 MG ORA L [id number] Inactive [facility] TUSSIN COUGH/COLD CF 5-10-100 MG/5ML ORAL LIQUID 2 teasp oons every 4 hours [facility] TUSSIN COUGH/COLD CF 5-10-100 MG/5ML ORAL LI QUID [id number] Inactive IBUPROFEN 800 MG ORAL TABLET take one po Q 8 hours 201 02/01/16 IBUPROFEN 800 MG ORAL TABLET 142880 IBUPROFEN Inactive VITAMINS 0.8 MG ORAL TABLET take 1 tab po qday VITAMINS 0.8 MG ORAL TABLET [id number] E-FA Inactive TESSALON PERLES 100 MG ORAL CAPSULE 1 tablet by mouth 3 times da cory TESSALON PERLES 100 MG ORAL CAPSULE 272447 BENZONATATE Inactive AMOXICILLIN 500 MG ORAL CAPSULE 1 tab by mouth 3 times daily 201 02/21/05 AMOXICILLIN 500 MG ORAL CAPSULE 886337 AMOXICILLIN Inactive GUAIFENESIN-CODEINE 100-10 MG/5ML ORAL SYRUP 2 tsp every 6 hours prn GUAIFENESIN-CODEINE 100-10 MG/5ML ORAL SYRUP 599821 GUAIFENESIN-CODEINE Inactive VICKS DAYQUIL SEVERE COLD/FLU TABLET 1 tab every 6 hours prn 201 02/22/17 VICKS DAYQUIL SEVERE COLD/FLU TABLET PHENYLEPHRI [id number]-APAP TABS Inactive BACTRIM DS 800-160 MG ORAL TABLET 1 twice a day 05/30 BACTRIM DS 800-160 MG ORAL TABLET 701679 SULFAMETHOXAZOLE-TRIMETHOPRIM Inactiv e PROMETHAZINE HCL 25 MG ORAL TABLET 1 four times a day as nee ded for vomiting PROMETHAZINE HCL 25 MG ORAL TABLET 760734 PROMETHAZINE HCL Inactive ZYRTEC ALLERGY 10 MG ORAL CAPSULE 1 po qd ZYRTEC ALLERGY 10 MG ORAL CAPSULE CETIRIZINE HCL Inactive MACROBID 100 MG ORAL CAPSULE 1 cap by mouth twice daily MACROBID 100 MG ORAL CAPSULE 6610452 NITROFURANTOIN MONOHYD MACRO In active LOMOTIL 2.5-0.025 MG ORAL TABLET 1 to 2 four times a day as needed for diarrhea LOMOTIL 2.5-0.025 MG ORAL TABLET 6133419 DIPHENOXYLATE-ATROPINE Inactive CYCLOBENZAPRINE HCL 10 MG ORAL TABLET 1/2 - 1 tablet b y mouth three times daily as needed for muscle spasm/pain CYCLOBEN ZAPRINE HCL 10 MG ORAL TABLET 737029 CYCLOBENZAPRINE HCL Inactive AMOXICILLIN 500 MG ORAL TABLET 2 tabs twice a day for 10 days 20 07/09/11 AMOXICILLIN 500 MG ORAL TABLET 440788 AMOXICILLIN I nactive LOMOTIL 2.5-0.025 MG ORAL TABLET 1 to 2 four times a day as needed for diarrhea LOMOTIL 2.5-0.025 MG ORAL TABLET 9533760 DIPHENOXYLATE-ATROPINE Inactive ZOFRAN 4 MG ORAL TABLET 1 TAB PO Q 6 HRS PRN NAUSEA 07/10/15 ZOFRAN 4 MG ORAL TABLET 800987 ONDANSETRON HCL Inactive CITRATE OF MAGNESIA ORAL SOLUTION 1 bottle today for constipatio n CITRATE OF MAGNESIA ORAL SOLUTION 0165422 MAGNESIUM CITR ATE Inactive PROMETHAZINE HCL 12.5 MG ORAL TABLET 1 tablet by mouth every 6 hours as needed for nausea/vomiting PROMETHAZINE HCL 12.5 MG ORA L TABLET 292951 PROMETHAZINE HCL Inactive PREDNISONE 20 MG ORAL TABLET 1 tablet twice daily for 2 days, then 1 tablet once daily for 2 days PREDNISONE 20 MG ORAL TABLET 652612 PREDNISONE Inactive ALPRAZOLAM 0.25 MG ORAL TABLET 1 tablet by mouth every 8 hours as needed for stress ALPRAZOLAM 0.25 MG ORAL TABLET 664038 ALPRA ZOLAM Inactive FLONASE 50 MCG/ACT NASAL SUSPENSION 1 spray each nostr il twice daily for allergies and runny nose until gone FLON ASE 50 MCG/ACT NASAL SUSPENSION FLUTICASONE PROPIONATE Inactive PREDNISONE 20 MG ORAL TABLET 1 tablet daily for airway inflammat ion PREDNISONE 20 MG ORAL TABLET 149679 PREDNISONE Makanda ctive NAPROXEN 500 MG ORAL TABLET Take 1 tab BID NAPROXEN 500 MG ORAL TABLET 756735 NAPROXEN Inactive ZOLOFT 50 MG ORAL TABLET 1 tablet by mouth daily 12/08 ZOLOFT 50 MG ORAL TABLET 178343 SERTRALINE HCL Inactive LOMOTIL 2.5-0.025 MG ORAL TABLET 1 tab po four times a day as needed for diarrhea LOMOTIL 2.5-0.025 MG ORAL TABLET 0878846 DIPHENOXYLATE-ATROPINE Inactive CETIRIZINE HCL 10 MG ORAL TABLET 1 po qd PRN Allergies CETIRIZINE HCL 10 MG ORAL TABLET 6586025 CETIRIZINE HCL Inactiv e TUSSIONEX PENNKINETIC ER 10-8 MG/5ML ORAL SUSPENSION E XTENDED RELEASE 5ml po q12hr PRN Cough TUSSIONEX PENNKINETI C ER 10-8 MG/5ML ORAL SUSPENSION EXTENDED RELEASE HYDROCOD POLST-CHLORPHEN POLST I nactive NEXPLANON IMPLANT right arm subcutaneously NEXPLANON IMPLANT ETONOGESTREL IMPL Inactive PROTONIX 40 MG ORAL TABLET DELAYED RELEASE 1 po q a.m. PROTONIX 40 MG ORAL TABLET DELAYED RELEASE 117743 PANTOPRAZOLE SODI UM Inactive CHERATUSSIN AC 100-10 MG/5ML ORAL SYRUP 1 tsp by mouth every 4 hours as needed for cough CHERATUSSIN AC 100-10 MG/5ML ORAL SYRUP 9 34724 GUAIFENESIN-CODEINE Inactive GUAIFENESIN DM 400-20 MG ORAL [...] tid K EFLEX 500 MG ORAL CAPSULE 298192 CEPHALEXIN Inactive DIFLUCAN 100 MG ORAL TABLET 1 tablet by mouth daily, R EPEAT 2ND DOSE IN 7 DAYS IF STILL SYMPTOMATIC DIFLUCAN 100 MG ORAL TABLET 21369 8 FLUCONAZOLE Inactive PROTONIX 40 MG ORAL TABLET DELAYED RELEASE 1 pill by m outh daily, for acid reflux PROTONIX 40 MG ORAL TABLET DELAYED RELEAS E 874259 PANTOPRAZOLE SODIUM Inactive ALPRAZOLAM 0.25 MG ORAL TABLET 1 tablet by mouth twice a day as needed for stress/anxiety ALPRAZOLAM 0.25 MG ORAL TABLET 654016 ALPRAZOLAM Inactive ESCITALOPRAM OXALATE 10 MG ORAL TABLET take 1 tab po qhs for mod ESCITALOPRAM OXALATE 10 MG ORAL TABLET 471935 ESCITALOP JO OXALATE Inactive AMOXICILLIN 500 MG ORAL TABLET take 1 tab po TID 08/05 AMOXICILLIN 500 MG ORAL TABLET 912545 AMOXICILLIN Inactive AMOXICILLIN 500 MG ORAL CAPSULE 1 tab by mouth 3 times daily 201 11/24/09 AMOXICILLIN 500 MG ORAL CAPSULE 236110 AMOXICILLIN Inactive ZITHROMAX 250 MG ORAL TABLET 2 po today, then 1 po q days 2-5 20 09/23/25 ZITHROMAX 250 MG ORAL TABLET 674689 AZITHROMYCIN Arlen ctive ZITHROMAX 250 MG ORAL TABLET 2 po today, then 1 po q days 2-5 20 10/03/08 ZITHROMAX 250 MG ORAL TABLET 703243 AZITHROMYCIN Arlen ctive AZITHROMYCIN 500 MG ORAL TABLET 1 PO q day x 6 days 20 03/02/23 AZITHROMYCIN 500 MG ORAL TABLET 3736466 AZITHROMYCIN Inactive BACTRIM 400-80 MG ORAL TABLET take one po BID BACTRIM 400- 80 MG ORAL TABLET 304449 SULFAMETHOXAZOLE-TRIMETHOPRIM Inactive AZITHROMYCIN 250 MG ORAL TABLET 2 po qd x 1 day, then 1 po q d x 4 days AZITHROMYCIN 250 MG ORAL TABLET 628593 AZITHROMY ALLISON Inactive PREDNISONE 20 MG ORAL TABLET 2 tabs daily for 3 days, 1 tab daily for 3 days, 1/2 tab daily for 2 days PREDNISONE 20 MG ORAL T ABLET 244948 PREDNISONE Inactive ZITHROMAX 250 MG ORAL TABLET 2 po today, then 1 po q days 2-5 20 06/08/16 ZITHROMAX 250 MG ORAL TABLET 009448 AZITHROMYCIN Arlen ctive FLAGYL 500 MG ORAL TABLET 1 tablet by mouth two times daily 2014 FLAGYL 500 MG ORAL TABLET 516227 METRONIDAZOLE Inacti ve AUGMENTIN 875-125 MG ORAL TABLET 1 tab by mouth twice daily with food AUGMENTIN 875-125 MG ORAL TABLET 163835 AMOXICIL ELSA-POT CLAVULANATE Inactive NAPROXEN 500 MG ORAL TABLET one tab PO BID NAPROXEN 500 MG ORAL TABLET 142074 NAPROXEN Inactive PREDNISONE 20 MG ORAL TABLET 2 tabs daily for 3 days, 1 tab daily for 3 days, 1/2 tab daily for 2 days PREDNISONE 20 MG ORAL T ABLET 836823 PREDNISONE Inactive AZITHROMYCIN 250 MG ORAL TABLET 2 po qd x 1 day, then 1 po q d x 4 days AZITHROMYCIN 250 MG ORAL TABLET 078642 AZITHROMY ALLISON Inactive PREDNISONE 20 MG ORAL TABLET 2 tabs daily for 3 days, 1 tab daily for 3 days, 1/2 tab daily for 2 days PREDNISONE 20 MG ORAL T ABLET 386263 PREDNISONE Inactive ZITHROMAX Z-EMIL 250 MG ORAL TABLET 2 today, then 1 daily for 4 d ays ZITHROMAX Z-EMIL 250 MG ORAL TABLET 704333 AZITHROMYCIN Inactive CEFDINIR 300 MG ORAL CAPSULE 1 po BID x 10 days 12/18 CEFDINIR 300 MG ORAL CAPSULE 432340 CEFDINIR Inactive CEFDINIR 300 MG ORAL CAPSULE 1 po BID x 10 days CEFDINIR 300 MG ORAL CAPSULE 226926 CEFDINIR Inactive PREDNISONE 20 MG ORAL TABLET 2 tabs daily for 3 days, 1 tab daily for 3 days, 1/2 tab daily for 2 days PREDNISONE 20 MG ORAL T ABLET 639869 PREDNISONE Inactive BACTRIM DS 800-160 MG ORAL TABLET 1 tab by mouth twice daily 201 05/02/30 BACTRIM DS 800-160 MG ORAL TABLET 422755 TRIMETHOPRIM-SULFAMETHOXAZOLE Inactive ZITHROMAX Z-EMIL 250 MG ORAL TABLET 2 today, then 1 daily for 4 d ays ZITHROMAX Z-EMIL 250 MG ORAL TABLET 812371 AZITHROMYCIN Inactive TAMIFLU 75 MG ORAL CAPSULE 1 po BID x 5 days 0 TAMIFLU 75 MG ORAL CAPSULE 661208 OSELTAMIVIR PHOSPHATE Inactive CEFDINIR 300 MG ORAL CAPSULE 1 po BID x 10 days 2018/01/03 CEFDINIR 300 MG ORAL CAPSULE 001358 CEFDINIR Inactive ZITHROMAX Z-EMIL 250 MG TABS Take two tablets today and then 1 tablet daily for 4 days ZITHROMAX Z-EMIL 250 MG TABS 304403 AZITHROM YCIN Inactive AMOXICILLIN 875 MG ORAL TABLET 1 tab by mouth twice daily 1 AMOXICILLIN 875 MG ORAL TABLET 640075 AMOXICILLIN Inactive Advance Directives Directive Description Start [...] 83 mm[Hg] BP kennedy blood pressure, systolic 119 mm[Hg] BP sys height E&M 66 [in_us] Bdy height pulse rate E&M 85 /min Heart rate temperature E&M 99.3 [degF] Body temp erature weight E&M 175 [lb_av] Weight Measure d Diagnostic Results Date [...] 11 .0-15.0 platelet count 280 THOUSAND/UL 10*3/mm3 077-092 0349/02/18 mean platelet volume 11.6 fL 7.5-12.5 Lab [...] 11 .6-14.8 platelet count 297 10^3/MM^3 10*3/mm3 673-007 5863/09/27 lymphocytes as percent of blood leukocytes 29.2 [...] mg/dL Encounters Code Encounter Date Provider Facility CPT-89176 Level 4 Est. Patient 16:39:44 AGRICULTURAL COMMODITIES INSPECTOR Jose Zhong MD [facility] CPT-66214 [id number] Vst-Est Level IV 13:45:[address] Tali Devi PA-C [facility] CPT-12080 [id number] Vst-Est Level III 09:41:31 CDT Arie Casper MD [facility] CPT-84649 [id number] Vst-Est Level III 18:20:11 CDT Hi lobito Russ [facility] CPT-62575 [id number] Vst-Est Level III 17:21:41 CDT Me lobito Russ [facility] CPT-47825 [id number] Vst-Est Level IV 13:30:22 C NIC Casper MD [facility] CPT-55322 Level 4 Est. Patient 13:05:26 CDT Myrna maldonado MD [facility] CPT-28546 [id number] Vst-Est Level IV 20:50:21 C NIC Casper MD [facility] CPT-56000 Level 3 Est. Patient 11:49:34 AGRICULTURAL COMMODITIES INSPECTOR Jessica boyd [facility] CPT-59136 Level 3 Est. Patient 14:55:50 AGRICULTURAL COMMODITIES INSPECTOR Jose Zhong MD [facility] CPT-16515 Level 3 Est. Patient 10:21:41 AGRICULTURAL COMMODITIES INSPECTOR Arie mcqueen MD [facility] CPT-71716 Level 3 Est. Patient 11:35:15 AGRICULTURAL COMMODITIES INSPECTOR Arie mcqueen MD [facility] CPT-37778 Level 3 Est. Patient 15:40:28 CDT Brii Are ll [facility] CPT-54180 Level 3 Est. Patient 16:40:36 CDT Arie mcqueen MD [facility] CPT-87139 Level 4 Est. Patient 15:29:22 AGRICULTURAL COMMODITIES INSPECTOR Arie mcqueen MD [facility] CPT-37655 Level 3 Est. Patient 15:18:16 AGRICULTURAL COMMODITIES INSPECTOR Jono black [facility] CPT-12337 Level 4 Est. Patient 12:08:40 AGRICULTURAL COMMODITIES INSPECTOR Brii Are ll [facility] CPT-59749 Level 3 Est. Patient 09:24:42 CDT Brii Are ll [facility] CPT-54368 Level 3 Est. Patient 09:12:56 CDT Arie mcqueen MD [facility] CPT-27178 Level 3 Est. Patient 16:40:54 CDT Jose Zhong MD [facility] CPT-62131 Level 2 Est. Patient 13:01:13 CDT Brii Are ll [facility] CPT-91819 Level 3 Est. Patient 11:55:30 AGRICULTURAL COMMODITIES INSPECTOR Jono black [facility] CPT-72096 Level 3 Est. Patient 09:52:36 AGRICULTURAL COMMODITIES INSPECTOR Brii Are [facility] CPT-49405 Level 3 Est. Patient 16:25:33 AGRICULTURAL COMMODITIES INSPECTOR Rich Rosales MD [facility] CPT-75144 Level 3 Est. Patient 20:33:55 CDT Arie mcqueen MD [facility] CPT-45128 Level 3 Est. Patient 14:18:20 CDT Rich Rosales MD [facility] CPT-15512 Level 4 Est. Patient 09:34:31 CDT Arie mcqueen MD [facility] CPT-44574 Level 3 Est. 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 Patient 10:44:27 CDT Arie mcqueen MD [facility] CPT-34154 Level 3 Est. Patient 08:55:41 CDT Jose Zhong MD [facility] CPT-59455 Level 3 Est. Patient 18:37:31 CDT Liliana vincent MD PhD [facility] CPT-79114 Level 3 Est. Patient 14:28:23 CDT Abelardo HERNANDEZ [facility] CPT-77430 Level 3 Est. Patient 15:18:13 [employer] INSPECTOR Arie mcqueen MD [facility] CPT-81270 Level 3 Est. Patient 10:11:29 [employer] INSPECTOR Arie mcqueen MD [facility] CPT-70868 Level 3 Est. Patient 10:55:57 [employer] INSPECTOR Jono black DO [facility] CPT-49788 Level 3 Est. Patient 17:29:05 CDT Arie mcqueen MD [facility] Procedures Code Procedure Name Date Entry Date Standard Desc ription CPT-75376 Sono OB transvag XRAY USE ONLY 17:11:12 CS T CPT-07625 UHCG Urine - MARC ONLY 12:13:59 [employer] INSPECTOR 12/11 CPT-94860 Spec Collection and Handling Fee 12:13:[address] CPT-64897 Visit 12:13:59 [employer] INSPECTOR CPT-64001 First Vx - Ix admin via ID I M or jet injects without counseling by physician 13:00:15 [employer] INSPECTOR CPT-37712 Flulaval Intramuscular Injectable 13:00:15 [employer] INSPECTOR CPT-83338 Urine Dip (Floor Use Only) 12:20:20 [employer] INSPECTOR 201 06/03/24 CPT-50917 Sono Soft Tissue Head and Neck - XRAY US E ONLY 17:10:14 CDT CPT-98877 Ear Wash with irrigation 17:21:41 CDT 07/04 CPT-23883 Nexplanon Removal 15:40:28 CDT CPT-42623 Sono transvag pelvis non OB uterus ovari es cervix - XRAY USE ONLY 08:58:14 [employer] INSPECTOR CPT-16463 UA w micro - LAB USE ONLY 16:04:56 [employer] INSPECTOR 2015 CPT-96125 Wet Prep/GEN - LAB USE ONLY 16:04:56 [employer] INSPECTOR 20 08/10/29 CPT-33661 First Vx - Ix admin via ID I M or jet injects without counseling by physician 16:57:10 CDT CPT-52712 Fluzone Preservative Free Intramuscular Suspension 16:57:10 CDT CPT-J0696 Rocephin 1000 mg (Ceftriaxone) 11:49:23 CDT CPT-J1040 Depo Medrol 80 mg (Methyl Prednisolone A cetate) 11:49:23 CDT CPT-J1100 Decadron 8mg (Dexamethasone) 11:49:23 CDT 2 CPT-40743 Abx/Therapy Injection 11:49:23 CDT CPT-45521 Abx/Therapy Injection 11:49:23 CDT CPT-07877 Abd compl w upright 09:07:26 [employer] INSPECTOR CPT-32705 Ear Wash 16:12:47 [employer] INSPECTOR CPT-OV Office Visit 11:12:01 CDT CPT-OV Office Visit 15:30:23 CDT CPT-82420 Sono pelvis non OB uterus ovaries cervix 15:50:44 CDT CPT-91955 Hand comp min 3V 16:42:32 CDT CPT-18787 Abd compl w upright 12:17:01 CDT CPT-49157 Nexplanon Placement 15:07:39 [employer] INSPECTOR CPT-46006 Removal of IUD 15:07:39 [employer] INSPECTOR CPT-64777 TB Tubersol 12:09:32 CDT CPT-30295 TB Tubersol 13:55:43 CDT
--- OUTSIDE RECORDS SUMMARY | 2020-03-03 06:54 | XMS REPORT | Clinical Summary ---
Author Author Dena, Diamante Marcelo Organization [employer] Address Unknown Phone Unavailable Allergies, Adverse Reactions, [...] MD Nausea alone URI 465.9 Resolved Jose Zhnog MD Acute upper respiratory infections of unspecified [...] Vaccination for Prophylaxis V04.81 Inactive Brii Russ ECONOMETRICIAN Need for prophylactic vaccin ation and inoculation [...] pain, right ICD-729.5 Inactive Jose pelayo MD Fever ICD-780.60 Inactive Liliana Estrada MD [...] Insect bite ICD-919.4 Inactive Jose Zhong MD Sinusitis, acute ICD-461.9 Inactive Liliana cheema MD PhD Sinusitis ICD-461.9 Inactive Jose Zhong MD Cerumen [...] 3-4 times per day 12/11 PYRIDOXINE HCL [id number] Active Myrna Roberto MD Active UNISOM SLEEPTABS 25 MG ORAL TABLET one tab PO qhs DOXYLAMINE SUCCINATE (SLEEP) 12429479186 Active Myrna Roberto MD Active TYLENOL 325 MG ORAL CAPSULE PRN ACETAMINOPHEN 000 50333391 Active Brii Pacheco Active ESCITALOPRAM OXALATE 10 MG ORAL TABLET take 1 tab po qhs for mod ESCITALOPRAM OXALATE 05922698786 No Longer Active Brii Pacheco Active ALPRAZOLAM 0.25 MG ORAL TABLET 1 tablet by mouth twice a day as needed for stress/anxiety ALPRAZOLAM 53991335159 No Longer Active Brii Pacheco Active PROTONIX 40 MG ORAL TABLET DELAYED RELEASE 1 pill by m outh daily, for acid reflux PANTOPRAZOLE SODIUM 78352385930 No Longer Activ e Brii Pacheco Active DIFLUCAN 100 MG ORAL TABLET 1 tablet by mouth daily, R EPEAT 2ND DOSE IN 7 DAYS IF STILL SYMPTOMATIC FLUCONAZOLE 20969102119 No Long er Active Nilam Plattida Active KEFLEX 500 MG ORAL CAPSULE 1 po tid CEPHALEXI N 91374955295 No Longer Active Tali Devi PA-C Active CONCEPT DHA 53.5-38-1 MG ORAL CAPSULE 1 tablet daily IADALG-[id number]-[id number]-FA-OMEGA 3 37641128672 Active Oxana Souza LPN Active AMOXICILLIN 875 MG ORAL TABLET 1 tab by mouth twice daily 1 AMOXICILLIN 38290011488 No Longer Active Brii Russ ECONOMETRICIAN Active TUSSIONEX PENNKINETIC ER 10-8 MG/5ML ORAL SUSPENSION E XTENDED RELEASE 5ml po q12hr PRN Cough HYDROCOD POLST-CHLORPHEN POLST 5 4631791313 No Longer Active Myrna Roberto MD Active ZITHROMAX Z-EMIL 250 MG TABS Take two tablets today and then 1 tablet daily for 4 days AZITHROMYCIN 22473197709 No Longer Active Flaco Rosales MD Active GUAIFENESIN DM 400-20 MG ORAL TABLET 1 pill by mouth t wice daily, if needed for cough DEXTROMETHORPHAN-GUAIFENESIN 56872511232 No Longer Active Rich Rosales MD Active CEFDINIR 300 MG ORAL CAPSULE 1 po BID x 10 days CEFDINIR 59553002006 No Longer Active Jessica Heaton APRN Active CHERATUSSIN AC 100-10 MG/5ML ORAL SYRUP 1 tsp by mouth every 4 hours as needed for cough GUAIFENESIN-CODEINE 30708461508 No Longe r Active Jessica Heaton APRN Active TAMIFLU 75 MG ORAL CAPSULE 1 po BID x 5 days 0 OSELTAMIVIR PHOSPHATE 01798940465 No Longer Active Jose Zhong MD Activ e ZITHROMAX Z-EMIL 250 MG ORAL TABLET 2 today, then 1 daily for 4 d ays AZITHROMYCIN 06831528322 No Longer Active Arie Casper MD Active PROTONIX 40 MG ORAL TABLET DELAYED RELEASE 1 po q a.m. PANTOPRAZOLE SODIUM 12470245075 No Longer Active Arie Casper MD Active BACTRIM DS 800-160 MG ORAL TABLET 1 tab by mouth twice daily 201 05/02/30 TRIMETHOPRIM-SULFAMETHOXAZOLE 55350006919 No Longer Active R nvKELLIE Marcos Active NEXPLANON IMPLANT right arm subcutaneously ETONOGESTREL IMPL 76752752181 No Longer Active Brii Russ APRN Active TUSSIONEX PENNKINETIC ER 10-8 MG/5ML ORAL SUSPENSION E XTENDED RELEASE 5ml po q12hr PRN Cough HYDROCOD POLST-CHLORPHEN POLST 5 4680627990 No Longer Active Brii Russ APRN Active CETIRIZINE HCL 10 MG ORAL TABLET 1 po qd PRN Allergies CETIRIZINE HCL 01627746365 No Longer Active Brii Russ APRN Activ e PREDNISONE 20 MG ORAL TABLET 2 tabs daily for 3 days, 1 tab daily for 3 days, 1/2 tab daily for 2 days PREDNISONE 88281242333 No Longer Active Arie Casper MD Active LOMOTIL 2.5-0.025 MG ORAL TABLET 1 tab po four times a day as needed for diarrhea DIPHENOXYLATE-ATROPINE 23516286490 No Lo nger Active Arie Casper MD Active ZOLOFT 50 MG ORAL TABLET 1 tablet by mouth daily 12/08 SERTRALINE HCL 50062483500 No Longer Active Arie Casper MD Ac tive NAPROXEN 500 MG ORAL TABLET Take 1 tab BID NAPR OXEN 76766021116 No Longer Active Arie Casper MD Active CEFDINIR 300 MG ORAL CAPSULE 1 po BID x 10 days CEFDINIR 63076827553 No Longer Active Brii Russ APRN Active PREDNISONE 20 MG ORAL TABLET 1 tablet daily for airway inflammat ion PREDNISONE 69638816941 No Longer Active Brii Russ APRN A ctive CEFDINIR 300 MG ORAL CAPSULE 1 po BID x 10 days CEFDINIR 75250034504 No Longer Active Jono Gagnon DO Active FLONASE 50 MCG/ACT NASAL SUSPENSION 1 spray each nostr il twice daily for allergies and runny nose until gone FLUT ICASONE PROPIONATE 99422937302 No Longer Active Jono Gagnon DO Active ALPRAZOLAM 0.25 MG ORAL TABLET 1 tablet by mouth every 8 hours as needed for stress ALPRAZOLAM 35151682758 No Longer Active Jono Gagnon DO Active ZITHROMAX Z-EMIL 250 MG ORAL TABLET 2 today, then 1 daily for 4 d ays AZITHROMYCIN 50742961213 No Longer Active Arie Casper MD Active PREDNISONE 20 MG ORAL TABLET 2 tabs daily for 3 days, 1 tab daily for 3 days, 1/2 tab daily for 2 days PREDNISONE 77805791691 No Longer Active Brii Lucholl ECONOMETRICIAN Active PREDNISONE 20 MG ORAL TABLET 1 tablet twice daily for 2 days, then 1 tablet once daily for 2 days PREDNISONE 65411855005 No Longer Active Brii Luchoboris ECONOMETRICIAN Active PROMETHAZINE HCL 12.5 MG ORAL TABLET 1 tablet by mouth every 6 hours as needed for nausea/vomiting PROMETHAZINE HCL 26586147945 No L onger Active Jono Gagnon DO Active CITRATE OF MAGNESIA ORAL SOLUTION 1 bottle today for constipatio n MAGNESIUM CITRATE 08243030000 No Longer Active Jono Gagnon DO Active ZOFRAN 4 MG ORAL TABLET 1 TAB PO Q 6 HRS PRN NAUSEA 07/10/15 ONDANSETRON HCL 26460679896 No Longer Active Brii Russ APRN Acti ve LOMOTIL 2.5-0.025 MG ORAL TABLET 1 to 2 four times a day as needed for diarrhea DIPHENOXYLATE-ATROPINE 01510619838 No Longer Active January Russ APRN Active AMOXICILLIN 500 MG ORAL TABLET 2 tabs twice a day for 10 days 07/09/11 AMOXICILLIN 92052333643 No Longer Active Brii Russ APRN Active CYCLOBENZAPRINE HCL 10 MG ORAL TABLET 1/2 - 1 tablet b y mouth three times daily as needed for muscle spasm/pain CYCLOBENZAPRINE HCL 36297985927 No Longer Active Arie Casper MD Active LOMOTIL 2.5-0.025 MG ORAL TABLET 1 to 2 four times a day as needed for diarrhea DIPHENOXYLATE-ATROPINE 78262077212 No Longer Active Fozia Casper MD Active MACROBID 100 MG ORAL CAPSULE 1 cap by mouth twice daily NITROFURANTOIN MONOHYD MACRO 90119184724 No Longer Active Arie Casper MD Active ZYRTEC ALLERGY 10 MG ORAL CAPSULE 1 po qd CE TIRIZINE HCL 48574422808 No Longer Active Arie Casper MD Active AZITHROMYCIN 250 MG ORAL TABLET 2 po qd x 1 day, then 1 po q d x 4 days AZITHROMYCIN 76462004550 No Longer Active Jessica salgado APRN Active PREDNISONE 20 MG ORAL TABLET 2 tabs daily for 3 days, 1 tab daily for 3 days, 1/2 tab daily for 2 days PREDNISONE 52070023326 No Longer Active Jessica Heaton APRN Active PROMETHAZINE HCL 25 MG ORAL TABLET 1 four times a day as nee ded for vomiting PROMETHAZINE HCL 58101374050 No Longer Active Myrna Roberto MD Active BACTRIM DS 800-160 MG ORAL TABLET 1 twice a day 05/30 SULFAMETHOXAZOLE-TRIMETHOPRIM 40667683592 No Longer Active Myrna Roberto MD Active VICKS DAYQUIL SEVERE COLD/FLU TABLET 1 tab every 6 hours prn 201 02/22/17 MFMVMUTLHOSJL-AR-YI-APAP TABS 85179760372 No Longer Active Chris Roberto MD Active GUAIFENESIN-CODEINE 100-10 MG/5ML ORAL SYRUP 2 tsp every 6 hours prn GUAIFENESIN-CODEINE 07460140449 No Longer Active Myrna Roberto MD Active NAPROXEN 500 MG ORAL TABLET one tab PO BID NAPR OXEN 88395921868 No Longer Active Myrna Roberto MD Active AUGMENTIN 875-125 MG ORAL TABLET 1 tab by mouth twice daily with food AMOXICILLIN-POT CLAVULANATE 48703908649 No Longer Act zaid Liliana Estrada MD PhD Active AMOXICILLIN 500 MG ORAL CAPSULE 1 tab by mouth 3 times daily 201 02/21/05 AMOXICILLIN 42323969561 No Longer Active Liliana Estrada MD PhD Active TESSALON PERLES 100 MG ORAL CAPSULE 1 tablet by mouth 3 times da cory BENZONATATE 81572566245 No Longer Active Liliana Estrada MD PhD Active FLAGYL 500 MG ORAL TABLET 1 tablet by mouth two times daily 2014 METRONIDAZOLE 65794119341 No Longer Active Nilam Doran tive ZITHROMAX 250 MG ORAL TABLET 2 po today, then 1 po q days 2-5 20 06/08/16 AZITHROMYCIN 30957269042 No Longer Active Arie Casper MD Active VITAMINS 0.8 MG ORAL TABLET take 1 tab po qday [id number]-WV-[id number] 11222839627 No Longer Active Arie Casper MD Active IBUPROFEN 800 MG ORAL TABLET take one po Q 8 hours 201 02/01/16 IBUPROFEN 28427678371 No Longer Active Arie Casper MD Acti ve [facility] TUSSIN COUGH/COLD CF 5-10-100 MG/5ML ORAL LIQUID 2 teasp oons every 4 hours [id number] 41315635148 No Longer Active Blaine Casper MD Active COMTREX COLD/COUGH DAY/NITE MS 5-2-10-325 MG ORAL 2 caps deja ry 4 hours [id number]-TAG-JJ-APAP 66386256598 No Longer Active Da aleksandra Casper MD Active CHLORASEPTIC MAX SORE THROAT 15-10 MG MOUTH/THROAT LOZENGE 1 every 2 hours prn BENZOCAINE-MENTHOL 52758596291 No Longer Active Arie Casper MD Active PREDNISONE 20 MG ORAL TABLET 2 tabs daily for 3 days, 1 tab daily for 3 days, 1/2 tab daily for 2 days PREDNISONE 77590397640 No Longer Active Jose Zhong MD Active AZITHROMYCIN 250 MG ORAL TABLET 2 po qd x 1 day, then 1 po q d x 4 days AZITHROMYCIN 01342270887 No Longer Active Jose Mcwilliams MD Active ZOFRAN ODT 4 MG ORAL TABLET DISINTEGRATING 1 po q6hr PRN Nausea ONDANSETRON 51950169636 No Longer Active Rich Rosales MD Active ZOFRAN 4 MG ORAL TABLET 1 tablet every 4 hours ONDANSETRON HCL 61718485147 No Longer Active Rich Rosales MD Activ e MUCINEX 600 MG ORAL TABLET EXTENDED RELEASE 12 HOUR Ta ke 1-2 tablets every 12 hours GUAIFENESIN 42226624879 No Longer Active Rich Rosales MD Active BACTRIM 400-80 MG ORAL TABLET take one po BID SULFAMETHOXAZOLE-TRIMETHOPRIM 82696534294 No Longer Active Abelardo HERNANDEZ Active AZITHROMYCIN 500 MG ORAL TABLET 1 PO q day x 6 days 03/02/23 AZITHROMYCIN 20760355341 No Longer Active Tin HERNANDEZ Activ e ZITHROMAX 250 MG ORAL TABLET 2 po today, then 1 po q days 2-5 20 10/03/08 AZITHROMYCIN 72346974222 No Longer Active rAie Casper MD Active ZITHROMAX 250 MG ORAL TABLET 2 po today, then 1 po q days 2-5 20 09/23/25 AZITHROMYCIN 28289271344 No Longer Active Arie Casper MD Active AMOXICILLIN 500 MG ORAL CAPSULE 1 tab by mouth 3 times daily 201 11/24/09 AMOXICILLIN 42800036251 No Longer Active Arie Casper MD Active BACTRIM DS 800-160 MG ORAL TABLET 1 tab by mouth twice daily 201 11/03/14 TRIMETHOPRIM-SULFAMETHOXAZOLE 89406882751 No Longer Active Fozia Casper MD Active AMOXICILLIN 500 MG ORAL TABLET take 1 tab po TID 08/05 AMOXICILLIN 14145774222 No Longer Active Arie Casper MD Acti ve BACTRIM DS 800-160 MG ORAL TABLET 1 tab by mouth twice daily 201 11/03/14 BACTRIM DS 800-160 MG ORAL TABLET 759278 TRIMETHOPRIM-SULFAMETHOXAZOLE Inactive MUCINEX 600 MG ORAL TABLET EXTENDED RELEASE 12 HOUR Ta ke 1-2 tablets every 12 hours MUCINEX 600 MG ORAL TABLET EXTENDED RELEA SE 12 HOUR GUAIFENESIN Inactive ZOFRAN 4 MG ORAL TABLET 1 tablet every 4 hours ZOFRAN 4 MG ORAL TABLET 394014 ONDANSETRON HCL Inactive ZOFRAN ODT 4 MG [...] COLD/COUGH DAY/NITE MS 5-2-10-325 MG ORA L [id number]-APAP Inactive [facility] TUSSIN COUGH/COLD CF 5-10-100 MG/5ML ORAL LIQUID 2 teasp oons every 4 hours [facility] TUSSIN COUGH/COLD CF 5-10-100 MG/5ML ORAL LI QUID [id number] Inactive IBUPROFEN 800 MG ORAL TABLET take one po Q 8 hours 201 02/01/16 IBUPROFEN 800 MG ORAL TABLET 897822 IBUPROFEN Inactive VITAMINS 0.8 MG ORAL TABLET take 1 tab po qday VITAMINS 0.8 MG ORAL TABLET [id number] E-FA Inactive TESSALON PERLES 100 MG ORAL CAPSULE 1 tablet by mouth 3 times da cory TESSALON PERLES 100 MG ORAL CAPSULE 798725 BENZONATATE Inactive AMOXICILLIN 500 MG ORAL CAPSULE 1 tab by mouth 3 times daily 201 02/21/05 AMOXICILLIN 500 MG ORAL CAPSULE 252054 AMOXICILLIN Inactive GUAIFENESIN-CODEINE 100-10 MG/5ML ORAL SYRUP 2 tsp every 6 hours prn GUAIFENESIN-CODEINE 100-10 MG/5ML ORAL SYRUP 028776 GUAIFENESIN-CODEINE Inactive VICKS DAYQUIL SEVERE COLD/FLU TABLET 1 tab every 6 hours prn 201 02/22/17 VICKS DAYQUIL SEVERE COLD/FLU TABLET PHENYLEPHRI YI-NE-TV-APAP TABS Inactive BACTRIM DS 800-160 MG ORAL TABLET 1 twice a day 05/30 BACTRIM DS 800-160 MG ORAL TABLET 253440 SULFAMETHOXAZOLE-TRIMETHOPRIM Inactiv e PROMETHAZINE HCL 25 MG ORAL TABLET 1 four times a day as nee ded for vomiting PROMETHAZINE HCL 25 MG ORAL TABLET 330946 PROMETHAZINE HCL Inactive ZYRTEC ALLERGY 10 MG ORAL CAPSULE 1 po qd ZYRTEC ALLERGY 10 MG ORAL CAPSULE CETIRIZINE HCL Inactive MACROBID 100 MG ORAL CAPSULE 1 cap by mouth twice daily MACROBID 100 MG ORAL CAPSULE 1905572 NITROFURANTOIN MONOHYD MACRO In active LOMOTIL 2.5-0.025 MG ORAL TABLET 1 to 2 four times a day as needed for diarrhea LOMOTIL 2.5-0.025 MG ORAL TABLET 4314705 DIPHENOXYLATE-ATROPINE Inactive CYCLOBENZAPRINE HCL 10 MG ORAL TABLET 1/2 - 1 tablet b y mouth three times daily as needed for muscle spasm/pain CYCLOBEN ZAPRINE HCL 10 MG ORAL TABLET 141060 CYCLOBENZAPRINE HCL Inactive AMOXICILLIN 500 MG ORAL TABLET 2 tabs twice a day for 10 days 20 07/09/11 AMOXICILLIN 500 MG ORAL TABLET 357098 AMOXICILLIN I nactive LOMOTIL 2.5-0.025 MG ORAL TABLET 1 to 2 four times a day as needed for diarrhea LOMOTIL 2.5-0.025 MG ORAL TABLET 2859052 DIPHENOXYLATE-ATROPINE Inactive ZOFRAN 4 MG ORAL TABLET 1 TAB PO Q 6 HRS PRN NAUSEA 07/10/15 ZOFRAN 4 MG ORAL TABLET 001938 ONDANSETRON HCL Inactive CITRATE OF MAGNESIA ORAL SOLUTION 1 bottle today for constipatio n CITRATE OF MAGNESIA ORAL SOLUTION 3144744 MAGNESIUM CITR ATE Inactive PROMETHAZINE HCL 12.5 MG ORAL TABLET 1 tablet by mouth every 6 hours as needed for nausea/vomiting PROMETHAZINE HCL 12.5 MG ORA L TABLET 529025 PROMETHAZINE HCL Inactive PREDNISONE 20 MG ORAL TABLET 1 tablet twice daily for 2 days, then 1 tablet once daily for 2 days PREDNISONE 20 MG ORAL TABLET 077425 PREDNISONE Inactive ALPRAZOLAM 0.25 MG ORAL TABLET 1 tablet by mouth every 8 hours as needed for stress ALPRAZOLAM 0.25 MG ORAL TABLET 766861 ALPRA ZOLAM Inactive FLONASE 50 MCG/ACT NASAL SUSPENSION 1 spray each nostr il twice daily for allergies and runny nose until gone FLON ASE 50 MCG/ACT NASAL SUSPENSION FLUTICASONE PROPIONATE Inactive PREDNISONE 20 MG ORAL TABLET 1 tablet daily for airway inflammat ion PREDNISONE 20 MG ORAL TABLET 224591 PREDNISONE [place] ctive NAPROXEN 500 MG ORAL TABLET Take 1 tab BID NAPROXEN 500 MG ORAL TABLET 617831 NAPROXEN Inactive ZOLOFT 50 MG ORAL TABLET 1 tablet by mouth daily 12/08 ZOLOFT 50 MG ORAL TABLET 302131 SERTRALINE HCL Inactive LOMOTIL 2.5-0.025 MG ORAL TABLET 1 tab po four times a day as needed for diarrhea LOMOTIL 2.5-0.025 MG ORAL TABLET 3399839 DIPHENOXYLATE-ATROPINE Inactive CETIRIZINE HCL 10 MG ORAL TABLET 1 po qd PRN Allergies CETIRIZINE HCL 10 MG ORAL TABLET 8885781 CETIRIZINE HCL Inactiv e TUSSIONEX PENNKINETIC ER 10-8 MG/5ML ORAL SUSPENSION E XTENDED RELEASE 5ml po q12hr PRN Cough TUSSIONEX PENNKINETI C ER 10-8 MG/5ML ORAL SUSPENSION EXTENDED RELEASE HYDROCOD POLST-CHLORPHEN POLST I nactive NEXPLANON IMPLANT right arm subcutaneously NEXPLANON IMPLANT ETONOGESTREL IMPL Inactive PROTONIX 40 MG ORAL TABLET DELAYED RELEASE 1 po q a.m. PROTONIX 40 MG ORAL TABLET DELAYED RELEASE 312151 PANTOPRAZOLE SODI UM Inactive CHERATUSSIN AC 100-10 MG/5ML ORAL SYRUP 1 tsp by mouth every 4 hours as needed for cough CHERATUSSIN AC 100-10 MG/5ML ORAL SYRUP 9 21040 GUAIFENESIN-CODEINE Inactive GUAIFENESIN DM 400-20 MG ORAL [...] tid K EFLEX 500 MG ORAL CAPSULE 034907 CEPHALEXIN Inactive DIFLUCAN 100 MG ORAL TABLET 1 tablet by mouth daily, R EPEAT 2ND DOSE IN 7 DAYS IF STILL SYMPTOMATIC DIFLUCAN 100 MG ORAL TABLET 15278 8 FLUCONAZOLE Inactive PROTONIX 40 MG ORAL TABLET DELAYED RELEASE 1 pill by m outh daily, for acid reflux PROTONIX 40 MG ORAL TABLET DELAYED RELEAS E 806355 PANTOPRAZOLE SODIUM Inactive ALPRAZOLAM 0.25 MG ORAL TABLET 1 tablet by mouth twice a day as needed for stress/anxiety ALPRAZOLAM 0.25 MG ORAL TABLET 339697 ALPRAZOLAM Inactive ESCITALOPRAM OXALATE 10 MG ORAL TABLET take 1 tab po qhs for mod ESCITALOPRAM OXALATE 10 MG ORAL TABLET 693969 ESCITALOP JO OXALATE Inactive AMOXICILLIN 500 MG ORAL TABLET take 1 tab po TID 08/05 AMOXICILLIN 500 MG ORAL TABLET 753373 AMOXICILLIN Inactive AMOXICILLIN 500 MG ORAL CAPSULE 1 tab by mouth 3 times daily 201 11/24/09 AMOXICILLIN 500 MG ORAL CAPSULE 936998 AMOXICILLIN Inactive ZITHROMAX 250 MG ORAL TABLET 2 po today, then 1 po q days 2-5 20 09/23/25 ZITHROMAX 250 MG ORAL TABLET 771933 AZITHROMYCIN Arlen ctive ZITHROMAX 250 MG ORAL TABLET 2 po today, then 1 po q days 2-5 20 10/03/08 ZITHROMAX 250 MG ORAL TABLET 377742 AZITHROMYCIN Arlen ctive AZITHROMYCIN 500 MG ORAL TABLET 1 PO q day x 6 days 20 03/02/23 AZITHROMYCIN 500 MG ORAL TABLET 1039167 AZITHROMYCIN Inactive BACTRIM 400-80 MG ORAL TABLET take one po BID BACTRIM 400- 80 MG ORAL TABLET 449583 SULFAMETHOXAZOLE-TRIMETHOPRIM Inactive AZITHROMYCIN 250 MG ORAL TABLET 2 po qd x 1 day, then 1 po q d x 4 days AZITHROMYCIN 250 MG ORAL TABLET 650386 AZITHROMY ALLISON Inactive PREDNISONE 20 MG ORAL TABLET 2 tabs daily for 3 days, 1 tab daily for 3 days, 1/2 tab daily for 2 days PREDNISONE 20 MG ORAL T ABLET 775937 PREDNISONE Inactive ZITHROMAX 250 MG ORAL TABLET 2 po today, then 1 po q days 2-5 20 06/08/16 ZITHROMAX 250 MG ORAL TABLET 588238 AZITHROMYCIN Arlen ctive FLAGYL 500 MG ORAL TABLET 1 tablet by mouth two times daily 2014 FLAGYL 500 MG ORAL TABLET 936608 METRONIDAZOLE Inacti ve AUGMENTIN 875-125 MG ORAL TABLET 1 tab by mouth twice daily with food AUGMENTIN 875-125 MG ORAL TABLET 740344 AMOXICIL ELSA-POT CLAVULANATE Inactive NAPROXEN 500 MG ORAL TABLET one tab PO BID NAPROXEN 500 MG ORAL TABLET 049267 NAPROXEN Inactive PREDNISONE 20 MG ORAL TABLET 2 tabs daily for 3 days, 1 tab daily for 3 days, 1/2 tab daily for 2 days PREDNISONE 20 MG ORAL T ABLET 365462 PREDNISONE Inactive AZITHROMYCIN 250 MG ORAL TABLET 2 po qd x 1 day, then 1 po q d x 4 days AZITHROMYCIN 250 MG ORAL TABLET 821954 AZITHROMY ALLISON Inactive PREDNISONE 20 MG ORAL TABLET 2 tabs daily for 3 days, 1 tab daily for 3 days, 1/2 tab daily for 2 days PREDNISONE 20 MG ORAL T ABLET 572216 PREDNISONE Inactive ZITHROMAX Z-EMIL 250 MG ORAL TABLET 2 today, then 1 daily for 4 d ays ZITHROMAX Z-EMIL 250 MG ORAL TABLET 060426 AZITHROMYCIN Inactive CEFDINIR 300 MG ORAL CAPSULE 1 po BID x 10 days 12/18 CEFDINIR 300 MG ORAL CAPSULE 868584 CEFDINIR Inactive CEFDINIR 300 MG ORAL CAPSULE 1 po BID x 10 days CEFDINIR 300 MG ORAL CAPSULE 581803 CEFDINIR Inactive PREDNISONE 20 MG ORAL TABLET 2 tabs daily for 3 days, 1 tab daily for 3 days, 1/2 tab daily for 2 days PREDNISONE 20 MG ORAL T ABLET 488029 PREDNISONE Inactive BACTRIM DS 800-160 MG ORAL TABLET 1 tab by mouth twice daily 201 05/02/30 BACTRIM DS 800-160 MG ORAL TABLET 274955 TRIMETHOPRIM-SULFAMETHOXAZOLE Inactive ZITHROMAX Z-EMIL 250 MG ORAL TABLET 2 today, then 1 daily for 4 d ays ZITHROMAX Z-EMIL 250 MG ORAL TABLET 999222 AZITHROMYCIN Inactive TAMIFLU 75 MG ORAL CAPSULE 1 po BID x 5 days 0 TAMIFLU 75 MG ORAL CAPSULE 700781 OSELTAMIVIR PHOSPHATE Inactive CEFDINIR 300 MG ORAL CAPSULE 1 po BID x 10 days 2018/01/03 CEFDINIR 300 MG ORAL CAPSULE 925059 CEFDINIR Inactive ZITHROMAX Z-EMIL 250 MG TABS Take two tablets today and then 1 tablet daily for 4 days ZITHROMAX Z-EMIL 250 MG TABS 375812 AZITHROM YCIN Inactive AMOXICILLIN 875 MG ORAL TABLET 1 tab by mouth twice daily 1 AMOXICILLIN 875 MG ORAL TABLET 901843 AMOXICILLIN Inactive Advance Directives Directive Description Start [...] 11 .0-15.0 platelet count 280 THOUSAND/UL 10*3/mm3 312-813 2328/02/18 mean platelet volume 11.6 fL 7.5-12.5 Lab [...] mg/dL Encounters Code Encounter Date Provider Facility CPT-23593 Level 4 Est. Patient 16:39:44 LOADER MACHINE Jose Zhong MD [facility] CPT-55658 [id number] Vst-Est Level IV 13:45:[address] [facility] [id number] Vst-Est Level III 09:41:31 CDT Arie Casper MD [facility]-47449 [id number] Vst-Est Level III 18:20:11 CDT [facility]-30830 [id number] Vst-Est Level III 17:21:41 CDT [facility]-77633 69469-Tlx Vst-Est Level IV 13:30:22 C NIC Caspre MD [facility] CPT-48880 Level 4 Est. Patient 13:05:26 CDT Myrna maldonado MD [facility]-19484 [id number] Vst-Est Level IV 20:50:21 C DT Arie Casper MD [facility] CPT-30991 Level 3 Est. Patient 11:49:34 LOADER MACHINE Jessica boyd [facility]-36562 Level 3 Est. Patient 14:55:50 LOADER MACHINE Jose Zhong MD [facility] CPT-26487 Level 3 Est. Patient 10:21:41 LOADER MACHINE Arie mcqueen MD [facility] CPT-07475 Level 3 Est. Patient 11:35:15 LOADER MACHINE Arie mcqueen MD [facility] CPT-81530 Level 3 Est. Patient 15:40:28 CDT [facility] CPT-06684 Level 3 Est. Patient 16:40:36 CDT Arie mcqueen MD [facility] CPT-55617 Level 4 Est. Patient 15:29:22 LOADER MACHINE Arie mcqueen MD [facility] CPT-64143 Level 3 Est. Patient 15:18:16 LOADER MACHINE Jono black [facility] CPT-25995 Level 4 Est. Patient 12:08:40 LOADER MACHINE Brii [facility] CPT-35636 Level 3 Est. Patient 09:24:42 CDT Brii [facility] CPT-33852 Level 3 Est. Patient 09:12:56 CDT Arie mcqueen MD [facility] CPT-13839 Level 3 Est. Patient 16:40:54 CDT Jose Zhong MD [facility] CPT-13922 Level 2 Est. Patient 13:01:13 CDT [facility] CPT-73674 Level 3 Est. Patient 11:55:30 LOADER MACHINE Jono black [facility] CPT-58551 Level 3 Est. Patient 09:52:36 LOADER MACHINE Brii Are [facility] CPT-33788 Level 3 Est. Patient 16:25:33 LOADER MACHINE Rich Rosales MD [facility] CPT-59342 Level 3 Est. Patient 20:33:55 CDT Arie mcqueen MD [facility] CPT-85213 Level 3 Est. Patient 14:18:20 CDT Rich Rosales MD [facility] CPT-28180 Level 4 Est. Patient 09:34:31 CDT Arie mcqueen MD [facility] CPT-35353 Level 3 Est. Patient 09:08:55 LOADER MACHINE Liliana vincent MD PhD [facility] CPT-88756 Level 3 Est. Patient 16:44:07 LOADER MACHINE Arie mcqueen MD [facility] CPT-14579 Level 3 Est. Patient 10:44:27 CDT Arie mcqueen MD [facility] CPT-75871 Level 3 Est. Patient 08:55:41 CDT Jose Zhogn MD [facility] CPT-41957 Level 3 Est. Patient 18:37:31 CDT Liliana vincent MD PhD [facility] CPT-43740 Level 3 Est. Patient 14:28:23 CDT Abelardo HERNANDEZ [facility] CPT-16765 Level 3 Est. Patient 15:18:13 LOADER MACHINE Arie mcqueen MD [facility] CPT-38863 Level 3 Est. Patient 10:11:29 LOADER MACHINE Arie mcqueen MD [facility] CPT-04058 Level 3 Est. Patient 10:55:57 [employer] MACHINE Jono black DO [facility] CPT-41020 Level 3 Est. Patient 17:29:05 CDT Arie mcqueen MD [facility] Procedures Code Procedure Name Date Entry Date Standard Desc ription CPT-85514 Sono OB transvag XRAY USE ONLY 17:11:12 CS T CPT-18722 UHCG Urine - MARC ONLY 12:13:59 LOADER MACHINE 12/11 CPT-61278 Spec Collection and Handling Fee 12:13:[address] CPT-29191 Visit 12:13:59 LOADER MACHINE CPT-81342 First Vx - Ix admin via ID I M or jet injects without counseling by physician 13:00:15 LOADER MACHINE CPT-65636 Flulaval Intramuscular Injectable 13:00:15 LOADER MACHINE CPT-28553 Urine Dip (Floor Use Only) 12:20:20 LOADER MACHINE 201 06/03/24 CPT-46422 Sono Soft Tissue Head and Neck - XRAY US E ONLY 17:10:14 CDT CPT-03202 Ear Wash with irrigation 17:21:41 CDT 07/04 CPT-23714 Nexplanon Removal 15:40:28 CDT CPT-53939 Sono transvag pelvis non OB uterus ovari es cervix - XRAY USE ONLY 08:58:14 LOADER MACHINE CPT-17314 UA w micro - LAB USE ONLY 16:04:56 LOADER MACHINE 2015 CPT-08058 Wet Prep/GEN - LAB USE ONLY 16:04:56 LOADER MACHINE 20 08/10/29 CPT-82504 First Vx - Ix admin via ID I M or jet injects without counseling by physician 16:57:10 CDT CPT-15282 Fluzone Preservative Free Intramuscular Suspension 16:57:10 CDT CPT-J0696 Rocephin 1000 mg (Ceftriaxone) 11:49:23 CDT CPT-J1040 Depo Medrol 80 mg (Methyl Prednisolone A cetate) 11:49:23 CDT CPT-J1100 Decadron 8mg (Dexamethasone) 11:49:23 CDT 2 CPT-87284 Abx/Therapy Injection 11:49:23 CDT CPT-04450 Abx/Therapy Injection 11:49:23 CDT CPT-80140 Abd compl w upright 09:07:26 LOADER MACHINE CPT-55917 Ear Wash 16:12:47 LOADER MACHINE CPT-OV Office Visit 11:12:01 CDT CPT-OV Office Visit 15:30:23 CDT CPT-30191 Sono pelvis non OB uterus ovaries cervix 15:50:44 CDT CPT-25102 Hand comp min 3V 16:42:32 CDT CPT-49879 Abd compl w upright 12:17:01 CDT CPT-58125 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
--- OUTSIDE RECORDS SUMMARY | 2020-03-03 06:55 | XMS REPORT | Clinical Summary ---
Author Author Dena, Diamante Marcelo Organization [employer] Address Unknown Phone Unavailable Allergies, Adverse Reactions, [...] MD Nausea alone URI 465.9 Resolved Jose hZong MD Acute upper respiratory infections of unspecified site Allergic rhinitis 477.9 Active Brii Russ APRN Allergic rhinitis, cause unspecified Abdominal pain, right lower quadrant 789.03 Resolved Jose Zhong MD Abdominal pain, right lower quadrant Urinary frequency 788.41 Inactive Roseann Crawford, [facility] Urinary frequency Urinary frequency 788.41 Resolved Jose [...] Vaccination for Prophylaxis V04.81 Inactive Brii Russ PIPE LAYER HELPER Need for prophylactic vaccin ation and [...] 3-4 times per day 12/11 PYRIDOXINE HCL 44465808343 Active Myrna Roberto MD Active UNISOM SLEEPTABS 25 MG ORAL TABLET one tab PO qhs DOXYLAMINE SUCCINATE (SLEEP) 28790467177 Active Myrna Roberto MD Active TYLENOL 325 MG ORAL CAPSULE PRN ACETAMINOPHEN 000 07967525 Active Brii Pacheco Active ESCITALOPRAM OXALATE 10 MG ORAL TABLET take 1 tab po qhs for mod ESCITALOPRAM OXALATE 46834614414 No Longer Active Brii Pacheco Active ALPRAZOLAM 0.25 MG ORAL TABLET 1 tablet by mouth twice a day as needed for stress/anxiety ALPRAZOLAM 29405876705 No Longer Active Brii Pacheco Active PROTONIX 40 MG ORAL TABLET DELAYED RELEASE 1 pill by m outh daily, for acid reflux PANTOPRAZOLE SODIUM 32858082924 No Longer Activ e Brii Pacheco Active DIFLUCAN 100 MG ORAL TABLET 1 tablet by mouth daily, R EPEAT 2ND DOSE IN 7 DAYS IF STILL SYMPTOMATIC FLUCONAZOLE 73211607162 No Long er Active Nilam Plattida Active KEFLEX 500 MG ORAL CAPSULE 1 po tid CEPHALEXI N 45201804051 No Longer Active Tali Devi PA-C Active CONCEPT DHA 53.5-38-1 MG ORAL CAPSULE 1 tablet daily [id number]-[id number] 3 13868810893 Active Oxana Souza LPN Active AMOXICILLIN 875 MG ORAL TABLET 1 tab by mouth twice daily 1 AMOXICILLIN 52302136810 No Longer Active Brii Russ PIPE LAYER HELPER Active TUSSIONEX PENNKINETIC ER 10-8 MG/5ML ORAL SUSPENSION E XTENDED RELEASE 5ml po q12hr PRN Cough HYDROCOD POLST-CHLORPHEN POLST 5 4374053320 No Longer Active Myrna Roberto MD Active ZITHROMAX Z-EMIL 250 MG TABS Take two tablets today and then 1 tablet daily for 4 days AZITHROMYCIN 27641022377 No Longer Active Flaco Rosales MD Active GUAIFENESIN DM 400-20 MG ORAL TABLET 1 pill by mouth t wice daily, if needed for cough DEXTROMETHORPHAN-GUAIFENESIN 10440870953 No Longer Active Rich Rosales MD Active CEFDINIR 300 MG ORAL CAPSULE 1 po BID x 10 days CEFDINIR 04095227030 No Longer Active Jessica Heaton APRN Active CHERATUSSIN AC 100-10 MG/5ML ORAL SYRUP 1 tsp by mouth every 4 hours as needed for cough GUAIFENESIN-CODEINE 66564568711 No Longe r Active Jessica Heaton APRN Active TAMIFLU 75 MG ORAL CAPSULE 1 po BID x 5 days 0 OSELTAMIVIR PHOSPHATE 18507860757 No Longer Active Jose Zhong MD Activ e ZITHROMAX Z-EMIL 250 MG ORAL TABLET 2 today, then 1 daily for 4 d ays AZITHROMYCIN 99198755773 No Longer Active Arie Casper MD Active PROTONIX 40 MG ORAL TABLET DELAYED RELEASE 1 po q a.m. PANTOPRAZOLE SODIUM 17005997294 No Longer Active Arie Casper MD Active BACTRIM DS 800-160 MG ORAL TABLET 1 tab by mouth twice daily 201 05/02/30 TRIMETHOPRIM-SULFAMETHOXAZOLE 27404160026 No Longer Active R iaKELLIE Marcos Active NEXPLANON IMPLANT right arm subcutaneously ETONOGESTREL IMPL 78510969453 No Longer Active Brii Russ APRN Active TUSSIONEX PENNKINETIC ER 10-8 MG/5ML ORAL SUSPENSION E XTENDED RELEASE 5ml po q12hr PRN Cough HYDROCOD POLST-CHLORPHEN POLST 5 4789661027 No Longer Active Brii Russ APRN Active CETIRIZINE HCL 10 MG ORAL TABLET 1 po qd PRN Allergies CETIRIZINE HCL 58441908868 No Longer Active Brii Russ APRN Activ e PREDNISONE 20 MG ORAL TABLET 2 tabs daily for 3 days, 1 tab daily for 3 days, 1/2 tab daily for 2 days PREDNISONE 31830328073 No Longer Active Arie Casper MD Active LOMOTIL 2.5-0.025 MG ORAL TABLET 1 tab po four times a day as needed for diarrhea DIPHENOXYLATE-ATROPINE 84384479094 No Lo nger Active Arie Casper MD Active ZOLOFT 50 MG ORAL TABLET 1 tablet by mouth daily 12/08 SERTRALINE HCL 35300315222 No Longer Active Arie Casper MD Ac tive NAPROXEN 500 MG ORAL TABLET Take 1 tab BID NAPR OXEN 17238903259 No Longer Active Arie Casper MD Active CEFDINIR 300 MG ORAL CAPSULE 1 po BID x 10 days CEFDINIR 57711059700 No Longer Active Brii Russ APRN Active PREDNISONE 20 MG ORAL TABLET 1 tablet daily for airway inflammat ion PREDNISONE 00546679890 No Longer Active Brii Russ APRN A ctive CEFDINIR 300 MG ORAL CAPSULE 1 po BID x 10 days CEFDINIR 03076415069 No Longer Active Jono Gagnon DO Active FLONASE 50 MCG/ACT NASAL SUSPENSION 1 spray each nostr il twice daily for allergies and runny nose until gone FLUT ICASONE PROPIONATE 06302214593 No Longer Active Jono Gagnon DO Active ALPRAZOLAM 0.25 MG ORAL TABLET 1 tablet by mouth every 8 hours as needed for stress ALPRAZOLAM 52197729317 No Longer Active Jono Gagnon DO Active ZITHROMAX Z-EMIL 250 MG ORAL TABLET 2 today, then 1 daily for 4 d ays AZITHROMYCIN 52787235510 No Longer Active Arie Casper MD Active PREDNISONE 20 MG ORAL TABLET 2 tabs daily for 3 days, 1 tab daily for 3 days, 1/2 tab daily for 2 days PREDNISONE 51622549026 No Longer Active Brii Lucholl PIPE LAYER HELPER Active PREDNISONE 20 MG ORAL TABLET 1 tablet twice daily for 2 days, then 1 tablet once daily for 2 days PREDNISONE 63517548295 No Longer Active Brii Luchoboris PIPE LAYER HELPER Active PROMETHAZINE HCL 12.5 MG ORAL TABLET 1 tablet by mouth every 6 hours as needed for nausea/vomiting PROMETHAZINE HCL 90873003306 No L onger Active Jono Gagnon DO Active CITRATE OF MAGNESIA ORAL SOLUTION 1 bottle today for constipatio n MAGNESIUM CITRATE 90829452430 No Longer Active Jono Gagnon DO Active ZOFRAN 4 MG ORAL TABLET 1 TAB PO Q 6 HRS PRN NAUSEA 07/10/15 ONDANSETRON HCL 02279679985 No Longer Active Brii Russ APRN Acti ve LOMOTIL 2.5-0.025 MG ORAL TABLET 1 to 2 four times a day as needed for diarrhea DIPHENOXYLATE-ATROPINE 00229880954 No Longer Active January Russ APRN Active AMOXICILLIN 500 MG ORAL TABLET 2 tabs twice a day for 10 days 07/09/11 AMOXICILLIN 63855185287 No Longer Active Brii Russ APRN Active CYCLOBENZAPRINE HCL 10 MG ORAL TABLET 1/2 - 1 tablet b y mouth three times daily as needed for muscle spasm/pain CYCLOBENZAPRINE HCL 01770896091 No Longer Active Arie Casper MD Active LOMOTIL 2.5-0.025 MG ORAL TABLET 1 to 2 four times a day as needed for diarrhea DIPHENOXYLATE-ATROPINE 93269848723 No Longer Active Fozia Casper MD Active MACROBID 100 MG ORAL CAPSULE 1 cap by mouth twice daily NITROFURANTOIN MONOHYD MACRO 88748077037 No Longer Active Arie Casper MD Active ZYRTEC ALLERGY 10 MG ORAL CAPSULE 1 po qd CE TIRIZINE HCL 47960828336 No Longer Active Arie Casper MD Active AZITHROMYCIN 250 MG ORAL TABLET 2 po qd x 1 day, then 1 po q d x 4 days AZITHROMYCIN 45159159916 No Longer Active Jessica salgado APRN Active PREDNISONE 20 MG ORAL TABLET 2 tabs daily for 3 days, 1 tab daily for 3 days, 1/2 tab daily for 2 days PREDNISONE 94554035399 No Longer Active Jessica Heaton APRN Active PROMETHAZINE HCL 25 MG ORAL TABLET 1 four times a day as nee ded for vomiting PROMETHAZINE HCL 63538291132 No Longer Active Myrna Roberto MD Active BACTRIM DS 800-160 MG ORAL TABLET 1 twice a day 05/30 SULFAMETHOXAZOLE-TRIMETHOPRIM 89112885686 No Longer Active Myrna Roberto MD Active VICKS DAYQUIL SEVERE COLD/FLU TABLET 1 tab every 6 hours prn 201 02/22/17 SNVZUTVPDUDDE-WW-SY-APAP TABS 09823919407 No Longer Active Chris Roberto MD Active GUAIFENESIN-CODEINE 100-10 MG/5ML ORAL SYRUP 2 tsp every 6 hours prn GUAIFENESIN-CODEINE 57248774672 No Longer Active Myrna Roberto MD Active NAPROXEN 500 MG ORAL TABLET one tab PO BID NAPR OXEN 77281270617 No Longer Active Myrna Roberto MD Active AUGMENTIN 875-125 MG ORAL TABLET 1 tab by mouth twice daily with food AMOXICILLIN-POT CLAVULANATE 59199666668 No Longer Act zaid Liliana Estrada MD PhD Active AMOXICILLIN 500 MG ORAL CAPSULE 1 tab by mouth 3 times daily 201 02/21/05 AMOXICILLIN 16442019398 No Longer Active Liliana Estrada MD PhD Active TESSALON PERLES 100 MG ORAL CAPSULE 1 tablet by mouth 3 times da cory BENZONATATE 65158297987 No Longer Active Liliana Estrada MD PhD Active FLAGYL 500 MG ORAL TABLET 1 tablet by mouth two times daily 2014 METRONIDAZOLE 93226046783 No Longer Active Nilam Doran tive ZITHROMAX 250 MG ORAL TABLET 2 po today, then 1 po q days 2-5 20 06/08/16 AZITHROMYCIN 61148576174 No Longer Active Arie Casper MD Active VITAMINS 0.8 MG ORAL TABLET take 1 tab po qday [id number]-BSR-UJ-FA 24746856682 No Longer Active Arie Casper MD Active IBUPROFEN 800 MG ORAL TABLET take one po Q 8 hours 201 02/01/16 IBUPROFEN 39206405895 No Longer Active Arie Casper MD Acti ve [facility] TUSSIN COUGH/COLD CF 5-10-100 MG/5ML ORAL LIQUID 2 teasp oons every 4 hours [id number] 26726023277 No Longer Active Blaine Casper MD Active COMTREX COLD/COUGH DAY/NITE MS 5-2-10-325 MG ORAL 2 caps deja ry 4 hours OAVTUILBM-SEW-ME-APAP 47202130719 No Longer Active Da aleksandra Casper MD Active CHLORASEPTIC MAX SORE THROAT 15-10 MG MOUTH/THROAT LOZENGE 1 every 2 hours prn BENZOCAINE-MENTHOL 29843190502 No Longer Active Arie Casper MD Active PREDNISONE 20 MG ORAL TABLET 2 tabs daily for 3 days, 1 tab daily for 3 days, 1/2 tab daily for 2 days PREDNISONE 05598140151 No Longer Active Jose Zhong MD Active AZITHROMYCIN 250 MG ORAL TABLET 2 po qd x 1 day, then 1 po q d x 4 days AZITHROMYCIN 62440224500 No Longer Active Jose Mcwilliams MD Active ZOFRAN ODT 4 MG ORAL TABLET DISINTEGRATING 1 po q6hr PRN Nausea ONDANSETRON 57029766405 No Longer Active Rich Rosales MD Active ZOFRAN 4 MG ORAL TABLET 1 tablet every 4 hours ONDANSETRON HCL 42291243336 No Longer Active Rich Rosales MD Activ e MUCINEX 600 MG ORAL TABLET EXTENDED RELEASE 12 HOUR Ta ke 1-2 tablets every 12 hours GUAIFENESIN 66963365104 No Longer Active Rich Rosales MD Active BACTRIM 400-80 MG ORAL TABLET take one po BID SULFAMETHOXAZOLE-TRIMETHOPRIM 22972267963 No Longer Active Abelardo HERNANDEZ Active AZITHROMYCIN 500 MG ORAL TABLET 1 PO q day x 6 days 03/02/23 AZITHROMYCIN 07991182162 No Longer Active Tin HERNANDEZ Activ e ZITHROMAX 250 MG ORAL TABLET 2 po today, then 1 po q days 2-5 20 10/03/08 AZITHROMYCIN 31589556391 No Longer Active Arie Casper MD Active ZITHROMAX 250 MG ORAL TABLET 2 po today, then 1 po q days 2-5 20 09/23/25 AZITHROMYCIN 01267765709 No Longer Active Arie Casper MD Active AMOXICILLIN 500 MG ORAL CAPSULE 1 tab by mouth 3 times daily 201 11/24/09 AMOXICILLIN 77735156264 No Longer Active Arie Casper MD Active BACTRIM DS 800-160 MG ORAL TABLET 1 tab by mouth twice daily 201 11/03/14 TRIMETHOPRIM-SULFAMETHOXAZOLE 79414399636 No Longer Active Fozia Casper MD Active AMOXICILLIN 500 MG ORAL TABLET take 1 tab po TID 08/05 AMOXICILLIN 38177063869 No Longer Active rAie Casper MD Acti ve BACTRIM DS 800-160 MG ORAL TABLET 1 tab by mouth twice daily 201 11/03/14 BACTRIM DS 800-160 MG ORAL TABLET 089262 TRIMETHOPRIM-SULFAMETHOXAZOLE Inactive MUCINEX 600 MG ORAL TABLET EXTENDED RELEASE 12 HOUR Ta ke 1-2 tablets every 12 hours MUCINEX 600 MG ORAL TABLET EXTENDED RELEA SE 12 HOUR GUAIFENESIN Inactive ZOFRAN 4 MG ORAL TABLET 1 tablet every 4 hours ZOFRAN 4 MG ORAL TABLET 535447 ONDANSETRON HCL Inactive ZOFRAN ODT 4 MG [...] COLD/COUGH DAY/NITE MS 5-2-10-325 MG ORA L [id number]-APAP Inactive [facility] TUSSIN COUGH/COLD CF 5-10-100 MG/5ML ORAL LIQUID 2 teasp oons every 4 hours [facility] TUSSIN COUGH/COLD CF 5-10-100 MG/5ML ORAL LI QUID [id number] Inactive IBUPROFEN 800 MG ORAL TABLET take one po Q 8 hours 201 02/01/16 IBUPROFEN 800 MG ORAL TABLET 864866 IBUPROFEN Inactive VITAMINS 0.8 MG ORAL TABLET take 1 tab po qday VITAMINS 0.8 MG ORAL TABLET [id number] E-FA Inactive TESSALON PERLES 100 MG ORAL CAPSULE 1 tablet by mouth 3 times da cory TESSALON PERLES 100 MG ORAL CAPSULE 710510 BENZONATATE Inactive AMOXICILLIN 500 MG ORAL CAPSULE 1 tab by mouth 3 times daily 201 02/21/05 AMOXICILLIN 500 MG ORAL CAPSULE 389658 AMOXICILLIN Inactive GUAIFENESIN-CODEINE 100-10 MG/5ML ORAL SYRUP 2 tsp every 6 hours prn GUAIFENESIN-CODEINE 100-10 MG/5ML ORAL SYRUP 670567 GUAIFENESIN-CODEINE Inactive VICKS DAYQUIL SEVERE COLD/FLU TABLET 1 tab every 6 hours prn 201 02/22/17 VICKS DAYQUIL SEVERE COLD/FLU TABLET PHENYLEPHRI AK-MH-[id number]-APAP TABS Inactive BACTRIM DS 800-160 MG ORAL TABLET 1 twice a day 05/30 BACTRIM DS 800-160 MG ORAL TABLET 719536 SULFAMETHOXAZOLE-TRIMETHOPRIM Inactiv e PROMETHAZINE HCL 25 MG ORAL TABLET 1 four times a day as nee ded for vomiting PROMETHAZINE HCL 25 MG ORAL TABLET 659350 PROMETHAZINE HCL Inactive ZYRTEC ALLERGY 10 MG ORAL CAPSULE 1 po qd ZYRTEC ALLERGY 10 MG ORAL CAPSULE CETIRIZINE HCL Inactive MACROBID 100 MG ORAL CAPSULE 1 cap by mouth twice daily MACROBID 100 MG ORAL CAPSULE 6588013 NITROFURANTOIN MONOHYD MACRO In active LOMOTIL 2.5-0.025 MG ORAL TABLET 1 to 2 four times a day as needed for diarrhea LOMOTIL 2.5-0.025 MG ORAL TABLET 9724704 DIPHENOXYLATE-ATROPINE Inactive CYCLOBENZAPRINE HCL 10 MG ORAL TABLET 1/2 - 1 tablet b y mouth three times daily as needed for muscle spasm/pain CYCLOBEN ZAPRINE HCL 10 MG ORAL TABLET 462960 CYCLOBENZAPRINE HCL Inactive AMOXICILLIN 500 MG ORAL TABLET 2 tabs twice a day for 10 days 20 07/09/11 AMOXICILLIN 500 MG ORAL TABLET 505860 AMOXICILLIN I nactive LOMOTIL 2.5-0.025 MG ORAL TABLET 1 to 2 four times a day as needed for diarrhea LOMOTIL 2.5-0.025 MG ORAL TABLET 2926013 DIPHENOXYLATE-ATROPINE Inactive ZOFRAN 4 MG ORAL TABLET 1 TAB PO Q 6 HRS PRN NAUSEA 07/10/15 ZOFRAN 4 MG ORAL TABLET 579160 ONDANSETRON HCL Inactive CITRATE OF MAGNESIA ORAL SOLUTION 1 bottle today for constipatio n CITRATE OF MAGNESIA ORAL SOLUTION 2891677 MAGNESIUM CITR ATE Inactive PROMETHAZINE HCL 12.5 MG ORAL TABLET 1 tablet by mouth every 6 hours as needed for nausea/vomiting PROMETHAZINE HCL 12.5 MG ORA L TABLET 576955 PROMETHAZINE HCL Inactive PREDNISONE 20 MG ORAL TABLET 1 tablet twice daily for 2 days, then 1 tablet once daily for 2 days PREDNISONE 20 MG ORAL TABLET 526462 PREDNISONE Inactive ALPRAZOLAM 0.25 MG ORAL TABLET 1 tablet by mouth every 8 hours as needed for stress ALPRAZOLAM 0.25 MG ORAL TABLET 008635 ALPRA ZOLAM Inactive FLONASE 50 MCG/ACT NASAL SUSPENSION 1 spray each nostr il twice daily for allergies and runny nose until gone FLON ASE 50 MCG/ACT NASAL SUSPENSION 6110787 FLUTICASONE PROPIONATE Inactive PREDNISONE 20 MG ORAL TABLET 1 tablet daily for airway inflammat ion PREDNISONE 20 MG ORAL TABLET 151828 PREDNISONE Sabine ctive NAPROXEN 500 MG ORAL TABLET Take 1 tab BID NAPROXEN 500 MG ORAL TABLET 617833 NAPROXEN Inactive ZOLOFT 50 MG ORAL TABLET 1 tablet by mouth daily 12/08 ZOLOFT 50 MG ORAL TABLET 579014 SERTRALINE HCL Inactive LOMOTIL 2.5-0.025 MG ORAL TABLET 1 tab po four times a day as needed for diarrhea LOMOTIL 2.5-0.025 MG ORAL TABLET 4882231 DIPHENOXYLATE-ATROPINE Inactive CETIRIZINE HCL 10 MG ORAL TABLET 1 po qd PRN Allergies CETIRIZINE HCL 10 MG ORAL TABLET 3376016 CETIRIZINE HCL Inactiv e TUSSIONEX PENNKINETIC ER 10-8 MG/5ML ORAL SUSPENSION E XTENDED RELEASE 5ml po q12hr PRN Cough TUSSIONEX PENNKINETI C ER 10-8 MG/5ML ORAL SUSPENSION EXTENDED RELEASE HYDROCOD POLST-CHLORPHEN POLST I nactive NEXPLANON IMPLANT right arm subcutaneously NEXPLANON IMPLANT ETONOGESTREL IMPL Inactive PROTONIX 40 MG ORAL TABLET DELAYED RELEASE 1 po q a.m. PROTONIX 40 MG ORAL TABLET DELAYED RELEASE 502021 PANTOPRAZOLE SODI UM Inactive CHERATUSSIN AC 100-10 MG/5ML ORAL SYRUP 1 tsp by mouth every 4 hours as needed for cough CHERATUSSIN AC 100-10 MG/5ML ORAL SYRUP 9 70149 GUAIFENESIN-CODEINE Inactive GUAIFENESIN DM 400-20 MG ORAL TABLET 1 pill by mouth t wice daily, if needed for cough GUAIFENESIN DM 400-20 MG ORAL TABLET 1147 685 DEXTROMETHORPHAN-GUAIFENESIN Inactive TUSSIONEX PENNKINETIC ER 10-8 MG/5ML ORAL SUSPENSION E XTENDED RELEASE 5ml po q12hr PRN Cough TUSSIONEX PENNKINETI C ER 10-8 MG/5ML ORAL SUSPENSION EXTENDED RELEASE HYDROCOD POLST-CHLORPHEN POLST I nactive KEFLEX 500 MG ORAL CAPSULE 1 po tid K EFLEX 500 MG ORAL CAPSULE 801854 CEPHALEXIN Inactive DIFLUCAN 100 MG ORAL TABLET 1 tablet by mouth daily, R EPEAT 2ND DOSE IN 7 DAYS IF STILL SYMPTOMATIC DIFLUCAN 100 MG ORAL TABLET 48551 8 FLUCONAZOLE Inactive PROTONIX 40 MG ORAL TABLET DELAYED RELEASE 1 pill by m outh daily, for acid reflux PROTONIX 40 MG ORAL TABLET DELAYED RELEAS E 246736 PANTOPRAZOLE SODIUM Inactive ALPRAZOLAM 0.25 MG ORAL TABLET 1 tablet by mouth twice a day as needed for stress/anxiety ALPRAZOLAM 0.25 MG ORAL TABLET 980460 ALPRAZOLAM Inactive ESCITALOPRAM OXALATE 10 MG ORAL TABLET take 1 tab po qhs for mod ESCITALOPRAM OXALATE 10 MG ORAL TABLET 672941 ESCITALOP JO OXALATE Inactive AMOXICILLIN 500 MG ORAL TABLET take 1 tab po TID 08/05 AMOXICILLIN 500 MG ORAL TABLET 549386 AMOXICILLIN Inactive AMOXICILLIN 500 MG ORAL CAPSULE 1 tab by mouth 3 times daily 201 11/24/09 AMOXICILLIN 500 MG ORAL CAPSULE 665432 AMOXICILLIN Inactive ZITHROMAX 250 MG ORAL TABLET 2 po today, then 1 po q days 2-5 20 09/23/25 ZITHROMAX 250 MG ORAL TABLET 932300 AZITHROMYCIN Arlen ctive ZITHROMAX 250 MG ORAL TABLET 2 po today, then 1 po q days 2-5 20 10/03/08 ZITHROMAX 250 MG ORAL TABLET 760989 AZITHROMYCIN Sabine ctive AZITHROMYCIN 500 MG ORAL TABLET 1 PO q day x 6 days 20 03/02/23 AZITHROMYCIN 500 MG ORAL TABLET 3610514 AZITHROMYCIN Inactive BACTRIM 400-80 MG ORAL TABLET take one po BID BACTRIM 400- 80 MG ORAL TABLET 183398 SULFAMETHOXAZOLE-TRIMETHOPRIM Inactive AZITHROMYCIN 250 MG ORAL TABLET 2 po qd x 1 day, then 1 po q d x 4 days AZITHROMYCIN 250 MG ORAL TABLET 891490 AZITHROMY ALLISON Inactive PREDNISONE 20 MG ORAL TABLET 2 tabs daily for 3 days, 1 tab daily for 3 days, 1/2 tab daily for 2 days PREDNISONE 20 MG ORAL T ABLET 143408 PREDNISONE Inactive ZITHROMAX 250 MG ORAL TABLET 2 po today, then 1 po q days 2-5 20 06/08/16 ZITHROMAX 250 MG ORAL TABLET 969445 AZITHROMYCIN Arlen ctive FLAGYL 500 MG ORAL TABLET 1 tablet by mouth two times daily 2014 FLAGYL 500 MG ORAL TABLET 585085 METRONIDAZOLE Inacti ve AUGMENTIN 875-125 MG ORAL TABLET 1 tab by mouth twice daily with food AUGMENTIN 875-125 MG ORAL TABLET 171196 AMOXICIL ELSA-POT CLAVULANATE Inactive NAPROXEN 500 MG ORAL TABLET one tab PO BID NAPROXEN 500 MG ORAL TABLET 623777 NAPROXEN Inactive PREDNISONE 20 MG ORAL TABLET 2 tabs daily for 3 days, 1 tab daily for 3 days, 1/2 tab daily for 2 days PREDNISONE 20 MG ORAL T ABLET 402470 PREDNISONE Inactive AZITHROMYCIN 250 MG ORAL TABLET 2 po qd x 1 day, then 1 po q d x 4 days AZITHROMYCIN 250 MG ORAL TABLET 233586 AZITHROMY ALLISON Inactive PREDNISONE 20 MG ORAL TABLET 2 tabs daily for 3 days, 1 tab daily for 3 days, 1/2 tab daily for 2 days PREDNISONE 20 MG ORAL T ABLET 424216 PREDNISONE Inactive ZITHROMAX Z-EMIL 250 MG ORAL TABLET 2 today, then 1 daily for 4 d ays ZITHROMAX Z-EMIL 250 MG ORAL TABLET 445732 AZITHROMYCIN Inactive CEFDINIR 300 MG ORAL CAPSULE 1 po BID x 10 days 12/18 CEFDINIR 300 MG ORAL CAPSULE 790617 CEFDINIR Inactive CEFDINIR 300 MG ORAL CAPSULE 1 po BID x 10 days CEFDINIR 300 MG ORAL CAPSULE 705811 CEFDINIR Inactive PREDNISONE 20 MG ORAL TABLET 2 tabs daily for 3 days, 1 tab daily for 3 days, 1/2 tab daily for 2 days PREDNISONE 20 MG ORAL T ABLET 245004 PREDNISONE Inactive BACTRIM DS 800-160 MG ORAL TABLET 1 tab by mouth twice daily 201 05/02/30 BACTRIM DS 800-160 MG ORAL TABLET 116332 TRIMETHOPRIM-SULFAMETHOXAZOLE Inactive ZITHROMAX Z-EMIL 250 MG ORAL TABLET 2 today, then 1 daily for 4 d ays ZITHROMAX Z-EMIL 250 MG ORAL TABLET 842172 AZITHROMYCIN Inactive TAMIFLU 75 MG ORAL CAPSULE 1 po BID x 5 days 0 TAMIFLU 75 MG ORAL CAPSULE 812783 OSELTAMIVIR PHOSPHATE Inactive CEFDINIR 300 MG ORAL CAPSULE 1 po BID x 10 days 2018/01/03 CEFDINIR 300 MG ORAL CAPSULE 378278 CEFDINIR Inactive ZITHROMAX Z-EMIL 250 MG TABS Take two tablets today and then 1 tablet daily for 4 days ZITHROMAX Z-EMIL 250 MG TABS 414784 AZITHROM YCIN Inactive AMOXICILLIN 875 MG ORAL TABLET 1 tab by mouth twice daily 1 AMOXICILLIN 875 MG ORAL TABLET 116672 AMOXICILLIN Inactive Advance Directives Directive Description Start [...] 11 .0-15.0 platelet count 280 THOUSAND/UL 10*3/mm3 923-008 6088/02/18 mean platelet volume 11.6 fL 7.5-12.5 Lab [...] mg/dL Encounters Code Encounter Date Provider Facility CPT-51369 Level 4 Est. Patient 16:39:44 PROPERTY ANALYST Jose Zhong MD [facility] CPT-22055 [id number] Vst-Est Level IV 13:45:[address] Tali Devi PA-C [facility]-57122 [id number] Vst-Est Level III 09:41:31 CDT Arie Casper MD [facility] CPT-74945 [id number] Vst-Est Level III 18:20:11 CDT Fl lobito Russ [facility]-43974 [id number] Vst-Est Level III 17:21:41 CDT Me lobito Russ [facility] CPT-55134 [id number] Vst-Est Level IV 13:30:22 C NIC Casper MD [facility] CPT-56678 Level 4 Est. Patient 13:05:26 CDT Myrna maldonado MD [facility]-39057 [id number] Vst-Est Level IV 20:50:21 C DT Arie Casper MD [facility] CPT-16378 Level 3 Est. Patient 11:49:34 PROPERTY ANALYST Jessica boyd [facility] CPT-98268 Level 3 Est. Patient 14:55:50 PROPERTY ANALYST Jose Zhong MD [facility] CPT-40596 Level 3 Est. Patient 10:21:41 PROPERTY ANALYST Arie mcqueen MD [facility] CPT-97852 Level 3 Est. Patient 11:35:15 PROPERTY ANALYST Arie mcqueen MD [facility] CPT-46812 Level 3 Est. Patient 15:40:28 CDT Brii [facility] CPT-74933 Level 3 Est. Patient 16:40:36 CDT Arie mcqueen MD [facility] CPT-96518 Level 4 Est. Patient 15:29:22 PROPERTY ANALYST Arie mcqueen MD [facility] CPT-84419 Level 3 Est. Patient 15:18:16 PROPERTY ANALYST Jono black [facility] CPT-82616 Level 4 Est. Patient 12:08:40 PROPERTY ANALYST Brii [facility] CPT-10440 Level 3 Est. Patient 09:24:42 CDT Brii [facility] CPT-45165 Level 3 Est. Patient 09:12:56 CDT Arie mcqueen MD [facility] CPT-81711 Level 3 Est. Patient 16:40:54 CDT Jsoe Zhong MD [facility] CPT-88967 Level 2 Est. Patient 13:01:13 CDT Brii Are ll [facility] CPT-52426 Level 3 Est. Patient 11:55:30 PROPERTY ANALYST Jono black [facility] CPT-28199 Level 3 Est. Patient 09:52:36 PROPERTY ANALYST Brii Are ll [facility] CPT-60050 Level 3 Est. Patient 16:25:33 PROPERTY ANALYST Rich Rosales MD [facility] CPT-94360 Level 3 Est. Patient 20:33:55 CDT Arie mcqueen MD [facility] CPT-30963 Level 3 Est. Patient 14:18:20 CDT Rich Rosales MD [facility] CPT-53431 Level 4 Est. Patient 09:34:31 CDT Arie mcqueen MD [facility]-60776 Level 3 Est. Patient 09:08:55 PROPERTY ANALYST Liliana vincent MD PhD [facility]-53082 Level 3 Est. Patient 16:44:07 PROPERTY ANALYST Arie mcqueen MD [facility] CPT-23755 Level 3 Est. Patient 10:44:27 CDT Arie mcqueen MD [facility] CPT-27452 Level 3 Est. Patient 08:55:41 CDT Jose Zhong MD [facility] CPT-86087 Level 3 Est. Patient 18:37:31 CDT Liliana vincent MD PhD [facility] CPT-70621 Level 3 Est. Patient 14:28:23 CDT Abelardo HERNANDEZ [facility] CPT-20284 Level 3 Est. Patient 15:18:13 PROPERTY ANALYST Arie mcqueen MD [facility] CPT-69148 Level 3 Est. Patient 10:11:29 PROPERTY ANALYST Arie mcqueen MD [facility] CPT-96559 Level 3 Est. Patient 10:55:57 PROPERTY ANALYST Jono black DO [facility] CPT-14328 Level 3 Est. Patient 17:29:05 CDT Arie mcqueen MD [facility] Procedures Code Procedure Name Date Entry Date Standard Desc ription CPT-21144 Sono OB transvag XRAY USE ONLY 17:11:12 CS T CPT-44999 UHCG Urine - MARC ONLY 12:13:59 PROPERTY ANALYST 12/11 CPT-89174 Spec Collection and Handling Fee 12:13:[address] CPT-34285 Visit 12:13:59 PROPERTY ANALYST CPT-55078 First Vx - Ix admin via ID I M or jet injects without counseling by physician 13:00:15 PROPERTY ANALYST CPT-29451 Flulaval Intramuscular Injectable 13:00:15 PROPERTY ANALYST CPT-73583 Urine Dip (Floor Use Only) 12:20:20 PROPERTY ANALYST 201 06/03/24 CPT-04500 Sono Soft Tissue Head and Neck - XRAY US E ONLY 17:10:14 CDT CPT-01726 Ear Wash with irrigation 17:21:41 CDT 07/04 CPT-90013 Nexplanon Removal 15:40:28 CDT CPT-81538 Sono transvag pelvis non OB uterus ovari es cervix - XRAY USE ONLY 08:58:14 PROPERTY ANALYST CPT-11888 UA w micro - LAB USE ONLY 16:04:56 PROPERTY ANALYST 2015 CPT-75740 Wet Prep/GEN - LAB USE ONLY 16:04:56 PROPERTY ANALYST 20 08/10/29 CPT-69054 First Vx - Ix admin via ID I M or jet injects without counseling by physician 16:57:10 CDT CPT-34669 Fluzone Preservative Free Intramuscular Suspension 16:57:10 CDT CPT-J0696 Rocephin 1000 mg (Ceftriaxone) 11:49:23 CDT CPT-J1040 Depo Medrol 80 mg (Methyl Prednisolone A cetate) 11:49:23 CDT CPT-J1100 Decadron 8mg (Dexamethasone) 11:49:23 CDT 2 CPT-06497 Abx/Therapy Injection 11:49:23 CDT CPT-64366 Abx/Therapy Injection 11:49:23 CDT CPT-50100 Abd compl w upright 09:07:26 PROPERTY ANALYST CPT-94864 Ear Wash 16:12:47 PROPERTY ANALYST CPT-OV Office Visit 11:12:01 CDT CPT-OV Office Visit 15:30:23 CDT CPT-31161 Sono pelvis non OB uterus ovaries cervix 15:50:44 CDT CPT-02999 Hand comp min 3V 16:42:32 CDT CPT-38318 Abd compl w upright 12:17:01 CDT CPT-47971 Nexplanon Placement 15:07:39 PROPERTY ANALYST CPT-79075 Removal of IUD 15:07:39 PROPERTY ANALYST CPT-21237 TB Tubersol 12:09:32 CDT CPT-87195 TB Tubersol 13:55:43 CDT
--- OUTSIDE RECORDS SUMMARY | 2020-03-03 06:56 | XMS REPORT | Clinical Summary ---
Author Author Admin, Diamante Marcelo Organization [employer] Address Unknown Phone Unavailable Allergies, Adverse Reactions, [...] quadrant Urinary frequency 788.41 Inactive Roseann Crawford, [facility] Urinary frequency Urinary frequency 788.41 Resolved [...] Jose Zhong MD Vaginal bleeding 623.8 Resolved Joes Zhong MD Other specified noninflammatory disorders of [...] Vaccination for Prophylaxis V04.81 Inactive Brii Arell 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CARDIOPULMONARY SERVICES Need for prophylactic vaccin ation and inoculation [...] ICD-V18.0 Inactive Jose Zhong MD 201 01/29/08 BREAST CANCER ICD-V16.3 Inactive Jose Sin D [...] Pharyngitis ICD-462 Inactive Myrna Roberto MD 2018 ACUTE FRONTAL SINUSITIS ICD-461.1 Inactive Meghan Estrada MD PhD CYSTITIS ICD-595.9 Inactive Liliana Estrada MD Ph D Gastroenteritis, acute ICD-558.9 Inactive Sergio Roberto MD [...] 3-4 times per day 12/11 PYRIDOXINE HCL 43838194319 Active Myrna Roberto MD Active UNISOM SLEEPTABS 25 MG ORAL TABLET one tab PO qhs DOXYLAMINE SUCCINATE (SLEEP) 67118929585 Active Myrna Roberto MD Active TYLENOL 325 MG ORAL CAPSULE PRN ACETAMINOPHEN 000 07655170 Active Brii Pacheco Active ESCITALOPRAM OXALATE 10 MG ORAL TABLET take 1 tab po qhs for mod ESCITALOPRAM OXALATE 53170774603 No Longer Active Brii Pacheco Active ALPRAZOLAM 0.25 MG ORAL TABLET 1 tablet by mouth twice a day as needed for stress/anxiety ALPRAZOLAM 24129104786 No Longer Active Brii Pacheco Active PROTONIX 40 MG ORAL TABLET DELAYED RELEASE 1 pill by m outh daily, for acid reflux PANTOPRAZOLE SODIUM 29776875515 No Longer Activ e Brii Pacheco Active DIFLUCAN 100 MG ORAL TABLET 1 tablet by mouth daily, R EPEAT 2ND DOSE IN 7 DAYS IF STILL SYMPTOMATIC FLUCONAZOLE 02482612431 No Long er Active Nilamnory Plattida Active KEFLEX 500 MG ORAL CAPSULE 1 po tid CEPHALEXI N 04094838697 No Longer Active Tali Devi PA-C Active CONCEPT DHA 53.5-38-1 MG ORAL CAPSULE 1 tablet daily [id number]-[id number]-OMEGA 3 10595410395 Active Oxana Souza LPN Active AMOXICILLIN 875 MG ORAL TABLET 1 tab by mouth twice daily 1 AMOXICILLIN 55000733316 No Longer Active Brii Russ 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CARDIOPULMONARY SERVICES Active TUSSIONEX PENNKINETIC ER 10-8 MG/5ML ORAL SUSPENSION E XTENDED RELEASE 5ml po q12hr PRN Cough HYDROCOD POLST-CHLORPHEN POLST 5 1755413027 No Longer Active Myrna Roberto MD Active ZITHROMAX Z-EMIL 250 MG TABS Take two tablets today and then 1 tablet daily for 4 days AZITHROMYCIN 20583553860 No Longer Active Flaco Rosales MD Active GUAIFENESIN DM 400-20 MG ORAL TABLET 1 pill by mouth t wice daily, if needed for cough DEXTROMETHORPHAN-GUAIFENESIN 00173912220 No Longer Active Rich Rosales MD Active CEFDINIR 300 MG ORAL CAPSULE 1 po BID x 10 days CEFDINIR 10920579401 No Longer Active Jessica Heaton APRN Active CHERATUSSIN AC 100-10 MG/5ML ORAL SYRUP 1 tsp by mouth every 4 hours as needed for cough GUAIFENESIN-CODEINE 53894061629 No Longe r Active Jessica Heaton APRN Active TAMIFLU 75 MG ORAL CAPSULE 1 po BID x 5 days 0 OSELTAMIVIR PHOSPHATE 58376471201 No Longer Active Jose Zhong MD Activ e ZITHROMAX Z-EMIL 250 MG ORAL TABLET 2 today, then 1 daily for 4 d ays AZITHROMYCIN 98799530601 No Longer Active Arie Casper MD Active PROTONIX 40 MG ORAL TABLET DELAYED RELEASE 1 po q a.m. PANTOPRAZOLE SODIUM 66740595276 No Longer Active Arie Casper MD Active BACTRIM DS 800-160 MG ORAL TABLET 1 tab by mouth twice daily 201 05/02/30 TRIMETHOPRIM-SULFAMETHOXAZOLE 38955549866 No Longer Active R KELLIE Sandoval Active NEXPLANON IMPLANT right arm subcutaneously ETONOGESTREL IMPL 01455439967 No Longer Active Brii Russ APRN Active TUSSIONEX PENNKINETIC ER 10-8 MG/5ML ORAL SUSPENSION E XTENDED RELEASE 5ml po q12hr PRN Cough HYDROCOD POLST-CHLORPHEN POLST 5 6235743850 No Longer Active Brii Russ APRN Active CETIRIZINE HCL 10 MG ORAL TABLET 1 po qd PRN Allergies CETIRIZINE HCL 69272331665 No Longer Active Brii Russ APRN Activ e PREDNISONE 20 MG ORAL TABLET 2 tabs daily for 3 days, 1 tab daily for 3 days, 1/2 tab daily for 2 days PREDNISONE 98962135281 No Longer Active Arie Casper MD Active LOMOTIL 2.5-0.025 MG ORAL TABLET 1 tab po four times a day as needed for diarrhea DIPHENOXYLATE-ATROPINE 73453999090 No Lo nger Active Arie Casper MD Active ZOLOFT 50 MG ORAL TABLET 1 tablet by mouth daily 12/08 SERTRALINE HCL 40364907720 No Longer Active Arie Casper MD Ac tive NAPROXEN 500 MG ORAL TABLET Take 1 tab BID NAPR OXEN 99934883366 No Longer Active Arie Casper MD Active CEFDINIR 300 MG ORAL CAPSULE 1 po BID x 10 days CEFDINIR 08797939381 No Longer Active Brii Russ APRN Active PREDNISONE 20 MG ORAL TABLET 1 tablet daily for airway inflammat ion PREDNISONE 75508646805 No Longer Active Brii Russ APRN A ctive CEFDINIR 300 MG ORAL CAPSULE 1 po BID x 10 days CEFDINIR 80879251822 No Longer Active Jono Gagnon DO Active FLONASE 50 MCG/ACT NASAL SUSPENSION 1 spray each nostr il twice daily for allergies and runny nose until gone FLUT ICASONE PROPIONATE 86124387206 No Longer Active Jono Gagnon DO Active ALPRAZOLAM 0.25 MG ORAL TABLET 1 tablet by mouth every 8 hours as needed for stress ALPRAZOLAM 02583657940 No Longer Active Jono Gagnon DO Active ZITHROMAX Z-EMIL 250 MG ORAL TABLET 2 today, then 1 daily for 4 d ays AZITHROMYCIN 25006630741 No Longer Active Arie Casper MD Active PREDNISONE 20 MG ORAL TABLET 2 tabs daily for 3 days, 1 tab daily for 3 days, 1/2 tab daily for 2 days PREDNISONE 25156518082 No Longer Active Brii Luchoboris 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CARDIOPULMONARY SERVICES Active PREDNISONE 20 MG ORAL TABLET 1 tablet twice daily for 2 days, then 1 tablet once daily for 2 days PREDNISONE 09663236374 No Longer Active Brii Luchoboris 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CARDIOPULMONARY SERVICES Active PROMETHAZINE HCL 12.5 MG ORAL TABLET 1 tablet by mouth every 6 hours as needed for nausea/vomiting PROMETHAZINE HCL 64491852831 No L onger Active Jono Gagnon DO Active CITRATE OF MAGNESIA ORAL SOLUTION 1 bottle today for constipatio n MAGNESIUM CITRATE 43055686413 No Longer Active Jono Gagnon DO Active ZOFRAN 4 MG ORAL TABLET 1 TAB PO Q 6 HRS PRN NAUSEA 07/10/15 ONDANSETRON HCL 99872558429 No Longer Active Brii Russ APRN Acti ve LOMOTIL 2.5-0.025 MG ORAL TABLET 1 to 2 four times a day as needed for diarrhea DIPHENOXYLATE-ATROPINE 02926272303 No Longer Active January Russ APRN Active AMOXICILLIN 500 MG ORAL TABLET 2 tabs twice a day for 10 days 07/09/11 AMOXICILLIN 86069230216 No Longer Active Brii Russ APRN Active CYCLOBENZAPRINE HCL 10 MG ORAL TABLET 1/2 - 1 tablet b y mouth three times daily as needed for muscle spasm/pain CYCLOBENZAPRINE HCL 89635103157 No Longer Active Arie Casper MD Active LOMOTIL 2.5-0.025 MG ORAL TABLET 1 to 2 four times a day as needed for diarrhea DIPHENOXYLATE-ATROPINE 21020024592 No Longer Active Fozia Casper MD Active MACROBID 100 MG ORAL CAPSULE 1 cap by mouth twice daily NITROFURANTOIN MONOHYD MACRO 51799198771 No Longer Active Arie Casper MD Active ZYRTEC ALLERGY 10 MG ORAL CAPSULE 1 po qd CE TIRIZINE HCL 20322580141 No Longer Active Arie Casper MD Active AZITHROMYCIN 250 MG ORAL TABLET 2 po qd x 1 day, then 1 po q d x 4 days AZITHROMYCIN 85339396485 No Longer Active Jessica salgado APRN Active PREDNISONE 20 MG ORAL TABLET 2 tabs daily for 3 days, 1 tab daily for 3 days, 1/2 tab daily for 2 days PREDNISONE 88102274911 No Longer Active Jessica Heaton APRN Active PROMETHAZINE HCL 25 MG ORAL TABLET 1 four times a day as nee ded for vomiting PROMETHAZINE HCL 92311004819 No Longer Active Myrna Roberto MD Active BACTRIM DS 800-160 MG ORAL TABLET 1 twice a day 05/30 SULFAMETHOXAZOLE-TRIMETHOPRIM 36472208417 No Longer Active Myrna Roberto MD Active VICKS DAYQUIL SEVERE COLD/FLU TABLET 1 tab every 6 hours prn 201 02/22/17 [id number]-APAP TABS 21834123684 No Longer Active Chris Roberto MD Active GUAIFENESIN-CODEINE 100-10 MG/5ML ORAL SYRUP 2 tsp every 6 hours prn GUAIFENESIN-CODEINE 64264179500 No Longer Active Myrna Roberto MD Active NAPROXEN 500 MG ORAL TABLET one tab PO BID NAPR OXEN 16994301206 No Longer Active Myrna Roberto MD Active AUGMENTIN 875-125 MG ORAL TABLET 1 tab by mouth twice daily with food AMOXICILLIN-POT CLAVULANATE 13472885769 No Longer Act zaid Liliana Estrada MD PhD Active AMOXICILLIN 500 MG ORAL CAPSULE 1 tab by mouth 3 times daily 201 02/21/05 AMOXICILLIN 12382984455 No Longer Active Liliana Estrada MD PhD Active TESSALON PERLES 100 MG ORAL CAPSULE 1 tablet by mouth 3 times da cory BENZONATATE 80074317685 No Longer Active Liliana Estrada MD PhD Active FLAGYL 500 MG ORAL TABLET 1 tablet by mouth two times daily 2014 METRONIDAZOLE 11813525604 No Longer Active Nilam Doran tive ZITHROMAX 250 MG ORAL TABLET 2 po today, then 1 po q days 2-5 20 06/08/16 AZITHROMYCIN 69988859283 No Longer Active Arie Casper MD Active VITAMINS 0.8 MG ORAL TABLET take 1 tab po qday [id number] 05760198668 No Longer Active Arie Casper MD Active IBUPROFEN 800 MG ORAL TABLET take one po Q 8 hours 201 02/01/16 IBUPROFEN 33965635483 No Longer Active Arie Casper MD Acti ve [facility] TUSSIN COUGH/COLD CF 5-10-100 MG/5ML ORAL LIQUID 2 teasp oons every 4 hours [id number] 22565413778 No Longer Active Blaine Casper MD Active COMTREX COLD/COUGH DAY/NITE MS 5-2-10-325 MG ORAL 2 caps deja ry 4 hours [id number] 66112125175 No Longer Active Da aleksandra Casper MD Active CHLORASEPTIC MAX SORE THROAT 15-10 MG MOUTH/THROAT LOZENGE 1 every 2 hours prn BENZOCAINE-MENTHOL 03754714146 No Longer Active Arie Casper MD Active PREDNISONE 20 MG ORAL TABLET 2 tabs daily for 3 days, 1 tab daily for 3 days, 1/2 tab daily for 2 days PREDNISONE 17014861790 No Longer Active Jose Zhong MD Active AZITHROMYCIN 250 MG ORAL TABLET 2 po qd x 1 day, then 1 po q d x 4 days AZITHROMYCIN 51057914514 No Longer Active Jose Mcwilliams MD Active ZOFRAN ODT 4 MG ORAL TABLET DISINTEGRATING 1 po q6hr PRN Nausea ONDANSETRON 26118658408 No Longer Active Rich Rosales MD Active ZOFRAN 4 MG ORAL TABLET 1 tablet every 4 hours ONDANSETRON HCL 16989771859 No Longer Active Rich Rosales MD Activ e MUCINEX 600 MG ORAL TABLET EXTENDED RELEASE 12 HOUR Ta ke 1-2 tablets every 12 hours GUAIFENESIN 95821530142 No Longer Active Rich Rosales MD Active BACTRIM 400-80 MG ORAL TABLET take one po BID SULFAMETHOXAZOLE-TRIMETHOPRIM 25844280442 No Longer Active Abelardo HERNANDEZ Active AZITHROMYCIN 500 MG ORAL TABLET 1 PO q day x 6 days 03/02/23 AZITHROMYCIN 39853939235 No Longer Active Tin HERNANDEZ Activ e ZITHROMAX 250 MG ORAL TABLET 2 po today, then 1 po q days 2-5 20 10/03/08 AZITHROMYCIN 23821504299 No Longer Active Arie Casper MD Active ZITHROMAX 250 MG ORAL TABLET 2 po today, then 1 po q days 2-5 20 09/23/25 AZITHROMYCIN 31355401929 No Longer Active Arie Casper MD Active AMOXICILLIN 500 MG ORAL CAPSULE 1 tab by mouth 3 times daily 201 11/24/09 AMOXICILLIN 64666255019 No Longer Active Arie Casper MD Active BACTRIM DS 800-160 MG ORAL TABLET 1 tab by mouth twice daily 201 11/03/14 TRIMETHOPRIM-SULFAMETHOXAZOLE 46527798266 No Longer Active Fozia Casper MD Active AMOXICILLIN 500 MG ORAL TABLET take 1 tab po TID 08/05 AMOXICILLIN 57218535543 No Longer Active Arie Casper MD Acti ve BACTRIM DS 800-160 MG ORAL TABLET 1 tab by mouth twice daily 201 11/03/14 BACTRIM DS 800-160 MG ORAL TABLET 546149 TRIMETHOPRIM-SULFAMETHOXAZOLE Inactive MUCINEX 600 MG ORAL TABLET EXTENDED RELEASE 12 HOUR Ta ke 1-2 tablets every 12 hours MUCINEX 600 MG ORAL TABLET EXTENDED RELEA SE 12 HOUR GUAIFENESIN Inactive ZOFRAN 4 MG ORAL TABLET 1 tablet every 4 hours ZOFRAN 4 MG ORAL TABLET 730790 ONDANSETRON HCL Inactive ZOFRAN ODT 4 MG [...] COLD/COUGH DAY/NITE MS 5-2-10-325 MG ORA L [id number] Inactive [facility] TUSSIN COUGH/COLD CF 5-10-100 MG/5ML ORAL LIQUID 2 teasp oons every 4 hours [facility] TUSSIN COUGH/COLD CF 5-10-100 MG/5ML ORAL LI QUID [id number] Inactive IBUPROFEN 800 MG ORAL TABLET take one po Q 8 hours 201 02/01/16 IBUPROFEN 800 MG ORAL TABLET 195440 IBUPROFEN Inactive VITAMINS 0.8 MG ORAL TABLET take 1 tab po qday VITAMINS 0.8 MG ORAL TABLET [id number] E-FA Inactive TESSALON PERLES 100 MG ORAL CAPSULE 1 tablet by mouth 3 times da cory TESSALON PERLES 100 MG ORAL CAPSULE 866508 BENZONATATE Inactive AMOXICILLIN 500 MG ORAL CAPSULE 1 tab by mouth 3 times daily 201 02/21/05 AMOXICILLIN 500 MG ORAL CAPSULE 089581 AMOXICILLIN Inactive GUAIFENESIN-CODEINE 100-10 MG/5ML ORAL SYRUP 2 tsp every 6 hours prn GUAIFENESIN-CODEINE 100-10 MG/5ML ORAL SYRUP 257425 GUAIFENESIN-CODEINE Inactive VICKS DAYQUIL SEVERE COLD/FLU TABLET 1 tab every 6 hours prn 201 02/22/17 VICKS DAYQUIL SEVERE COLD/FLU TABLET PHENYLEPHRI [id number]-[id number]-APAP TABS Inactive BACTRIM DS 800-160 MG ORAL TABLET 1 twice a day 05/30 BACTRIM DS 800-160 MG ORAL TABLET 319621 SULFAMETHOXAZOLE-TRIMETHOPRIM Inactiv e PROMETHAZINE HCL 25 MG ORAL TABLET 1 four times a day as nee ded for vomiting PROMETHAZINE HCL 25 MG ORAL TABLET 877009 PROMETHAZINE HCL Inactive ZYRTEC ALLERGY 10 MG ORAL CAPSULE 1 po qd ZYRTEC ALLERGY 10 MG ORAL CAPSULE CETIRIZINE HCL Inactive MACROBID 100 MG ORAL CAPSULE 1 cap by mouth twice daily MACROBID 100 MG ORAL CAPSULE 9510018 NITROFURANTOIN MONOHYD MACRO In active LOMOTIL 2.5-0.025 MG ORAL TABLET 1 to 2 four times a day as needed for diarrhea LOMOTIL 2.5-0.025 MG ORAL TABLET 5028197 DIPHENOXYLATE-ATROPINE Inactive CYCLOBENZAPRINE HCL 10 MG ORAL TABLET 1/2 - 1 tablet b y mouth three times daily as needed for muscle spasm/pain CYCLOBEN ZAPRINE HCL 10 MG ORAL TABLET 919141 CYCLOBENZAPRINE HCL Inactive AMOXICILLIN 500 MG ORAL TABLET 2 tabs twice a day for 10 days 20 07/09/11 AMOXICILLIN 500 MG ORAL TABLET 812769 AMOXICILLIN I nactive LOMOTIL 2.5-0.025 MG ORAL TABLET 1 to 2 four times a day as needed for diarrhea LOMOTIL 2.5-0.025 MG ORAL TABLET 8658597 DIPHENOXYLATE-ATROPINE Inactive ZOFRAN 4 MG ORAL TABLET 1 TAB PO Q 6 HRS PRN NAUSEA 07/10/15 ZOFRAN 4 MG ORAL TABLET 748479 ONDANSETRON HCL Inactive CITRATE OF MAGNESIA ORAL SOLUTION 1 bottle today for constipatio n CITRATE OF MAGNESIA ORAL SOLUTION 0783972 MAGNESIUM CITR ATE Inactive PROMETHAZINE HCL 12.5 MG ORAL TABLET 1 tablet by mouth every 6 hours as needed for nausea/vomiting PROMETHAZINE HCL 12.5 MG ORA L TABLET 581690 PROMETHAZINE HCL Inactive PREDNISONE 20 MG ORAL TABLET 1 tablet twice daily for 2 days, then 1 tablet once daily for 2 days PREDNISONE 20 MG ORAL TABLET 153293 PREDNISONE Inactive ALPRAZOLAM 0.25 MG ORAL TABLET 1 tablet by mouth every 8 hours as needed for stress ALPRAZOLAM 0.25 MG ORAL TABLET 312882 ALPRA ZOLAM Inactive FLONASE 50 MCG/ACT NASAL SUSPENSION 1 spray each nostr il twice daily for allergies and runny nose until gone FLON ASE 50 MCG/ACT NASAL SUSPENSION 1190407 FLUTICASONE PROPIONATE Inactive PREDNISONE 20 MG ORAL TABLET 1 tablet daily for airway inflammat ion PREDNISONE 20 MG ORAL TABLET 948486 PREDNISONE [place] ctive NAPROXEN 500 MG ORAL TABLET Take 1 tab BID NAPROXEN 500 MG ORAL TABLET 999517 NAPROXEN Inactive ZOLOFT 50 MG ORAL TABLET 1 tablet by mouth daily 12/08 ZOLOFT 50 MG ORAL TABLET 664070 SERTRALINE HCL Inactive LOMOTIL 2.5-0.025 MG ORAL TABLET 1 tab po four times a day as needed for diarrhea LOMOTIL 2.5-0.025 MG ORAL TABLET 6418758 DIPHENOXYLATE-ATROPINE Inactive CETIRIZINE HCL 10 MG ORAL TABLET 1 po qd PRN Allergies CETIRIZINE HCL 10 MG ORAL TABLET 0642920 CETIRIZINE HCL Inactiv e TUSSIONEX PENNKINETIC ER 10-8 MG/5ML ORAL SUSPENSION E XTENDED RELEASE 5ml po q12hr PRN Cough TUSSIONEX PENNKINETI C ER 10-8 MG/5ML ORAL SUSPENSION EXTENDED RELEASE HYDROCOD POLST-CHLORPHEN POLST I nactive NEXPLANON IMPLANT right arm subcutaneously NEXPLANON IMPLANT ETONOGESTREL IMPL Inactive PROTONIX 40 MG ORAL TABLET DELAYED RELEASE 1 po q a.m. PROTONIX 40 MG ORAL TABLET DELAYED RELEASE 607171 PANTOPRAZOLE SODI UM Inactive CHERATUSSIN AC 100-10 MG/5ML ORAL SYRUP 1 tsp by mouth every 4 hours as needed for cough CHERATUSSIN AC 100-10 MG/5ML ORAL SYRUP 9 27193 GUAIFENESIN-CODEINE Inactive GUAIFENESIN DM 400-20 MG ORAL [...] tid K EFLEX 500 MG ORAL CAPSULE 317638 CEPHALEXIN Inactive DIFLUCAN 100 MG ORAL TABLET 1 tablet by mouth daily, R EPEAT 2ND DOSE IN 7 DAYS IF STILL SYMPTOMATIC DIFLUCAN 100 MG ORAL TABLET 64379 8 FLUCONAZOLE Inactive PROTONIX 40 MG ORAL TABLET DELAYED RELEASE 1 pill by m outh daily, for acid reflux PROTONIX 40 MG ORAL TABLET DELAYED RELEAS E 801262 PANTOPRAZOLE SODIUM Inactive ALPRAZOLAM 0.25 MG ORAL TABLET 1 tablet by mouth twice a day as needed for stress/anxiety ALPRAZOLAM 0.25 MG ORAL TABLET 797339 ALPRAZOLAM Inactive ESCITALOPRAM OXALATE 10 MG ORAL TABLET take 1 tab po qhs for mod ESCITALOPRAM OXALATE 10 MG ORAL TABLET 235668 ESCITALOP JO OXALATE Inactive AMOXICILLIN 500 MG ORAL TABLET take 1 tab po TID 08/05 AMOXICILLIN 500 MG ORAL TABLET 339088 AMOXICILLIN Inactive AMOXICILLIN 500 MG ORAL CAPSULE 1 tab by mouth 3 times daily 201 11/24/09 AMOXICILLIN 500 MG ORAL CAPSULE 680782 AMOXICILLIN Inactive ZITHROMAX 250 MG ORAL TABLET 2 po today, then 1 po q days 2-5 20 09/23/25 ZITHROMAX 250 MG ORAL TABLET 742779 AZITHROMYCIN Arlen ctive ZITHROMAX 250 MG ORAL TABLET 2 po today, then 1 po q days 2-5 20 10/03/08 ZITHROMAX 250 MG ORAL TABLET 397674 AZITHROMYCIN [place] ctive AZITHROMYCIN 500 MG ORAL TABLET 1 PO q day x 6 days 20 03/02/23 AZITHROMYCIN 500 MG ORAL TABLET 7105811 AZITHROMYCIN Inactive BACTRIM 400-80 MG ORAL TABLET take one po BID BACTRIM 400- 80 MG ORAL TABLET 546337 SULFAMETHOXAZOLE-TRIMETHOPRIM Inactive AZITHROMYCIN 250 MG ORAL TABLET 2 po qd x 1 day, then 1 po q d x 4 days AZITHROMYCIN 250 MG ORAL TABLET 368459 AZITHROMY ALLISON Inactive PREDNISONE 20 MG ORAL TABLET 2 tabs daily for 3 days, 1 tab daily for 3 days, 1/2 tab daily for 2 days PREDNISONE 20 MG ORAL T ABLET 811091 PREDNISONE Inactive ZITHROMAX 250 MG ORAL TABLET 2 po today, then 1 po q days 2-5 20 06/08/16 ZITHROMAX 250 MG ORAL TABLET 635481 AZITHROMYCIN Arlen ctive FLAGYL 500 MG ORAL TABLET 1 tablet by mouth two times daily 2014 FLAGYL 500 MG ORAL TABLET 333702 METRONIDAZOLE Inacti ve AUGMENTIN 875-125 MG ORAL TABLET 1 tab by mouth twice daily with food AUGMENTIN 875-125 MG ORAL TABLET 286370 AMOXICIL ELSA-POT CLAVULANATE Inactive NAPROXEN 500 MG ORAL TABLET one tab PO BID NAPROXEN 500 MG ORAL TABLET 428627 NAPROXEN Inactive PREDNISONE 20 MG ORAL TABLET 2 tabs daily for 3 days, 1 tab daily for 3 days, 1/2 tab daily for 2 days PREDNISONE 20 MG ORAL T ABLET 029484 PREDNISONE Inactive AZITHROMYCIN 250 MG ORAL TABLET 2 po qd x 1 day, then 1 po q d x 4 days AZITHROMYCIN 250 MG ORAL TABLET 307359 AZITHROMY ALLISON Inactive PREDNISONE 20 MG ORAL TABLET 2 tabs daily for 3 days, 1 tab daily for 3 days, 1/2 tab daily for 2 days PREDNISONE 20 MG ORAL T ABLET 568232 PREDNISONE Inactive ZITHROMAX Z-EMIL 250 MG ORAL TABLET 2 today, then 1 daily for 4 d ays ZITHROMAX Z-EMIL 250 MG ORAL TABLET 040215 AZITHROMYCIN Inactive CEFDINIR 300 MG ORAL CAPSULE 1 po BID x 10 days 12/18 CEFDINIR 300 MG ORAL CAPSULE 333542 CEFDINIR Inactive CEFDINIR 300 MG ORAL CAPSULE 1 po BID x 10 days CEFDINIR 300 MG ORAL CAPSULE 981639 CEFDINIR Inactive PREDNISONE 20 MG ORAL TABLET 2 tabs daily for 3 days, 1 tab daily for 3 days, 1/2 tab daily for 2 days PREDNISONE 20 MG ORAL T ABLET 992218 PREDNISONE Inactive BACTRIM DS 800-160 MG ORAL TABLET 1 tab by mouth twice daily 201 05/02/30 BACTRIM DS 800-160 MG ORAL TABLET 165769 TRIMETHOPRIM-SULFAMETHOXAZOLE Inactive ZITHROMAX Z-EMIL 250 MG ORAL TABLET 2 today, then 1 daily for 4 d ays ZITHROMAX Z-EMIL 250 MG ORAL TABLET 896959 AZITHROMYCIN Inactive TAMIFLU 75 MG ORAL CAPSULE 1 po BID x 5 days 0 TAMIFLU 75 MG ORAL CAPSULE 781168 OSELTAMIVIR PHOSPHATE Inactive CEFDINIR 300 MG ORAL CAPSULE 1 po BID x 10 days 2018/01/03 CEFDINIR 300 MG ORAL CAPSULE 070032 CEFDINIR Inactive ZITHROMAX Z-EMIL 250 MG TABS Take two tablets today and then 1 tablet daily for 4 days ZITHROMAX Z-EMIL 250 MG TABS 987584 AZITHROM YCIN Inactive AMOXICILLIN 875 MG ORAL TABLET 1 tab by mouth twice daily 1 AMOXICILLIN 875 MG ORAL TABLET 716940 AMOXICILLIN Inactive Advance Directives Directive Description Start [...] 11 .0-15.0 platelet count 280 THOUSAND/UL 10*3/mm3 296-020 7530/02/18 mean platelet volume 11.6 fL 7.5-12.5 Lab [...] mg/dL Encounters Code Encounter Date Provider Facility CPT-50999 Level 4 Est. Patient 16:39:44 PRECINCT CAPTAIN Jose Zhong MD [facility] CPT-94820 [id number] Vst-Est Level IV 13:45:[address] Tali Devi PA-C [facility]-63379 [id number] Vst-Est Level III 09:41:31 CDT Arie Casper MD [facility] CPT-39027 [id number] Vst-Est Level III 18:20:11 CDT Nh lobito Russ [facility]-36700 [id number] Vst-Est Level III 17:21:41 CDT Me lobito Russ [facility] CPT-57739 [id number] Vst-Est Level IV 13:30:22 C NIC Casper MD [facility] CPT-46363 Level 4 Est. Patient 13:05:26 CDT Myrna maldonado MD [facility] [place]-90675 95314-Gmg Vst-Est Level IV 20:50:21 C DT Arie Casper MD [facility] CPT-17554 Level 3 Est. Patient 11:49:34 PRECINCT CAPTAIN Jessica boyd [facility] CPT-68055 Level 3 Est. Patient 14:55:50 PRECINCT CAPTAIN Jose Zhong MD [facility] CPT-79714 Level 3 Est. Patient 10:21:41 PRECINCT CAPTAIN Arie mcqueen MD [facility] CPT-58507 Level 3 Est. Patient 11:35:15 PRECINCT CAPTAIN Arie mcqueen MD [facility] CPT-26141 Level 3 Est. Patient 15:40:28 CDT Brii Are [facility] CPT-22980 Level 3 Est. Patient 16:40:36 CDT Arie cmqueen MD [facility] CPT-78626 Level 4 Est. Patient 15:29:22 PRECINCT CAPTAIN Arie mcqueen MD [facility] CPT-41934 Level 3 Est. Patient 15:18:16 PRECINCT CAPTAIN Jono black [facility] CPT-56664 Level 4 Est. Patient 12:08:40 PRECINCT CAPTAIN Brii Are ll [facility] CPT-57748 Level 3 Est. Patient 09:24:42 CDT Brii Are [facility] CPT-88692 Level 3 Est. Patient 09:12:56 CDT Arie mcqueen MD [facility] CPT-43241 Level 3 Est. Patient 16:40:54 CDT Jose Zhong MD [facility] CPT-67253 Level 2 Est. Patient 13:01:13 CDT Brii Are ll [facility] CPT-47668 Level 3 Est. Patient 11:55:30 PRECINCT CAPTAIN Jono black [facility] CPT-07488 Level 3 Est. Patient 09:52:36 PRECINCT CAPTAIN Brii Are ll [facility] CPT-07828 Level 3 Est. Patient 16:25:33 PRECINCT CAPTAIN Rich Rosales MD [facility] CPT-14007 Level 3 Est. Patient 20:33:55 CDT Arie mcqueen MD [facility] CPT-34598 Level 3 Est. Patient 14:18:20 CDT Rich Rosales MD [facility] CPT-28800 Level 4 Est. Patient 09:34:31 CDT Arie mcqueen MD [facility] CPT-83615 Level 3 Est. Patient 09:08:55 PRECINCT CAPTAIN Liliana vincent MD PhD [facility] [place]-97717 Level 3 Est. Patient 16:44:07 PRECINCT CAPTAIN Arie mcqueen MD [facility] CPT-25363 Level 3 Est. Patient 10:44:27 CDT Arie mcqueen MD [facility] CPT-25307 Level 3 Est. Patient 08:55:41 CDT Jose Zhong MD [facility] CPT-32466 Level 3 Est. Patient 18:37:31 CDT Liliana vincent MD PhD [facility] CPT-15930 Level 3 Est. Patient 14:28:23 CDT Abelardo HERNANDEZ [facility] CPT-83560 Level 3 Est. Patient 15:18:13 PRECINCT CAPTAIN Arie mcqueen MD [facility] CPT-69599 Level 3 Est. Patient 10:11:29 PRECINCT CAPTAIN Arie mcqueen MD [facility] CPT-93192 Level 3 Est. Patient 10:55:57 PRECINCT CAPTAIN Jono black DO [facility] CPT-27737 Level 3 Est. Patient 17:29:05 CDT Arie mcqueen MD [facility] Procedures Code Procedure Name Date Entry Date Standard Desc ription CPT-45677 Sono OB transvag XRAY USE ONLY 17:11:12 CS T CPT-84187 UHCG Urine - [facility]ARC ONLY 12:13:59 PRECINCT CAPTAIN 12/11 CPT-72961 Spec Collection and Handling Fee 12:13:[address] CPT-27811 Visit 12:13:59 PRECINCT CAPTAIN CPT-62229 First Vx - Ix admin via ID I M or jet injects without counseling by physician 13:00:15 PRECINCT CAPTAIN CPT-51057 Flulaval Intramuscular Injectable 13:00:15 PRECINCT CAPTAIN CPT-28622 Urine Dip (Floor Use Only) 12:20:20 PRECINCT CAPTAIN 201 06/03/24 CPT-71140 Sono Soft Tissue Head and Neck - XRAY US E ONLY 17:10:14 CDT CPT-05115 Ear Wash with irrigation 17:21:41 CDT 07/04 CPT-96025 Nexplanon Removal 15:40:28 CDT CPT-26039 Sono transvag pelvis non OB uterus ovari es cervix - XRAY USE ONLY 08:58:14 PRECINCT CAPTAIN CPT-87114 UA w micro - LAB USE ONLY 16:04:56 PRECINCT CAPTAIN 2015 CPT-64472 Wet Prep/GEN - LAB USE ONLY 16:04:56 PRECINCT CAPTAIN 20 08/10/29 CPT-53071 First Vx - Ix admin via ID I M or jet injects without counseling by physician 16:57:10 CDT CPT-58762 Fluzone Preservative Free Intramuscular Suspension 16:57:10 CDT CPT-J0696 Rocephin 1000 mg (Ceftriaxone) 11:49:23 CDT CPT-J1040 Depo Medrol 80 mg (Methyl Prednisolone A cetate) 11:49:23 CDT CPT-J1100 Decadron 8mg (Dexamethasone) 11:49:23 CDT 2 CPT-52223 Abx/Therapy Injection 11:49:23 CDT CPT-18187 Abx/Therapy Injection 11:49:23 CDT CPT-27395 Abd compl w upright 09:07:26 PRECINCT CAPTAIN CPT-97425 Ear Wash 16:12:47 PRECINCT CAPTAIN CPT-OV Office Visit 11:12:01 CDT CPT-OV Office Visit 15:30:23 CDT CPT-76220 Sono pelvis non OB uterus ovaries cervix 15:50:44 CDT CPT-73378 Hand comp min 3V 16:42:32 CDT CPT-07419 Abd compl w upright 12:17:01 CDT CPT-66678 Nexplanon Placement 15:07:39 PRECINCT CAPTAIN CPT-55206 Removal of IUD 15:07:39 PRECINCT CAPTAIN CPT-44738 TB Tubersol 12:09:32 CDT CPT-84000 TB Tubersol 13:55:43 CDT
--- OUTSIDE RECORDS SUMMARY | 2020-03-03 06:56 | XMS REPORT | Clinical Summary ---
Author Author Dena, Diamante Marcelo Organization [employer] Address Unknown Phone Unavailable Allergies, Adverse Reactions, [...] Abdominal pain, unspecified site Abdominal pain 789.00 Active Brii Russ APRN Abdominal pain, unspecified site Diarrhea 787.91 Resolved [...] MD Acute maxillary sinusitis Neck pain 723.1 Active Liliana Estrada MD PhD Cervicalgia Dyspareunia 625.0 Active Arie Casper MD Dyspareunia Pelvic pain 789.09 Active Arie Casper MD Abdominal pain, other specified site; multiple [...] caused by hypodermic needle Post-op care V67.00 Active Myrna Roberto MD Follow-up examination following surgery, unspecified Constipation 564.00 Active Myrna Roberto MD Constipation, unspecified Bronchitis 490 Active Jessica Heaton APRN Bronchitis, not specified as acute or chronic Fatigue 780.79 Active KELLIE Roberts O ther malaise and fatigue Insect bite 919.4 Active KELLIE Roberts Insect bite, nonvenomous, of other, multiple, and unspecified sites, without mention of infection Sinusitis 461.9 Active Rich Rosales MD Acute sinusitis, unspecified Cerumen impaction, right 380.4 Active Alex Rosales MD Impacted cerumen Sore throat 462 Active Nilam Raida A cute pharyngitis Nausea 787.02 Active Brii Russ APRN N ausea alone URI 465.9 Active Jono Gagnon DO Acu te upper respiratory infections of unspecified site Allergic rhinitis 477.9 Active Brii Russ APRN Allergic rhinitis, cause unspecified Abdominal pain, right lower quadrant 789.03 Active Jose Zhong MD Abdominal pain, right lower quadrant Urinary frequency 788.41 Inactive KELLIE Roberts Urinary frequency Urinary frequency 788.41 Resolved Jose Zhong MD Urinary frequency Sinusitis - acute 461.9 Active Brii Russ APRN Acute sinusitis, unspecified Anxiety with depression 300.4 Active Brii Ramirez l PAPER STACKER Dysthymic disorder URI 465.9 Active Jono Gagnon DO Acu te upper respiratory infections of unspecified site Vaginal bleeding 623.8 Resolved Jose Zhong MD Other specified noninflammatory disorders of vagina High risk sexual behavior V69.2 Active Arie Casper MD High-risk sexual behavior GERD 530.81 Active Arie Casper MD Esophageal reflux Encounter for surveillance of implantable subdermal contraceptiv e Active Brii Russ APRN Vaginal bleeding 623.8 Active Arie Casper MD Other specified noninflammatory disorders of vagina Influenza like illness 487.1 Active Jose Mcwilliams MD Influenza with other respiratory manifestations Sinusitis 473.9 Active Jessica Heaton PAPER STACKER Unspecified sinusitis (chronic) Other mixed anxiety 300.00 [...] 27.0-27.9, adult Counseling for procreative management V26.9 Active Myrna Roberto MD Unspecified procreative management Overweight (BMI 25-29.9) 278.02 Active Myrna maldonado MD Overweight Cerumen impaction, bilateral 380.4 Active Brii Russ APRN Impacted cerumen Tonsillar enlargement 474.11 Active Brii Arell PAPER STACKER Hypertrophy of tonsils alone Influenza Vaccination for Prophylaxis V04.81 Inactive Brii Arell PAPER STACKER Need for prophylactic vaccin ation and inoculation against influenza Submandibular lymph node 785.6 Active Brii Are ll PAPER STACKER Enlargement of lymph nodes Influenza Vaccination for Prophylaxis V04.81 Inactive Arie Casper MD Need for prophylactic vaccin ation and inoculation against influenza Influenza Vaccination for Prophylaxis V04.81 Inactive Tali HERNANDEZ-C Need for prophylactic vaccin ation and inoculation against influenza Dysuria 788.1 Active Tali HERNANDEZ-C Dysuria Pelvic pain, acute 789.09 Active Tali HERNANDEZ-C Abdominal pain, other specified site; multiple sites Vaginal pruritus 698.1 Active Tali HERNANDEZ -C Pruritus of genital organs DYSPAREUNIA Active Tali HERNANDEZ-C Vaginal bleeding, first trimester 641.90 Active 20 [...] maxillary, acute ICD-461.0 Inactive Myrna Roberto MD Pharyngitis ICD-462 Inactive Myrna Roberto MD 2018 Gastroenteritis, acute ICD-558.9 Inactive Sergio Roberto MD Fibroids, uterus ICD-218.9 Inactive Myrna jesus MD ACCIDENT CAUSED BY HYPODERMIC NEEDLE ICD-E920.5 Inactive Myrna Roberto MD Urinary frequency ICD-788.41 Inactive Jose Zhong MD Vaginal bleeding ICD-623.8 Inactive Jose Mcwilliams MD Influenza Vaccination for Prophylaxis ICD-V04.81 6 Inactive Carole HOPKINS Influenza Vaccination for Prophylaxis ICD-V04.81 8 Inactive Nliam Weber Influenza Vaccination for Prophylaxis ICD-V04.81 5 Inactive Liliana Gaspar MA Medication List Medication Instructions Start Date Stop Date Generic Name NDC Status Provider Patient Instruction PYRIDOXINE HCL 25 MG ORAL TABLET one tab PO 3-4 times per day 12/11 PYRIDOXINE HCL 24587911123 Active Myrna Roberto MD Active UNISOM SLEEPTABS 25 MG ORAL TABLET one tab PO qhs DOXYLAMINE SUCCINATE (SLEEP) 35816345566 Active Myrna Roberto MD Active TYLENOL 325 MG ORAL CAPSULE PRN ACETAMINOPHEN 000 89966277 Active Brii Pacheco Active ESCITALOPRAM OXALATE 10 MG ORAL TABLET take 1 tab po qhs for mod ESCITALOPRAM OXALATE 47297401450 No Longer Active Brii Pacheco Active ALPRAZOLAM 0.25 MG ORAL TABLET 1 tablet by mouth twice a day as needed for stress/anxiety ALPRAZOLAM 01212587465 No Longer Active Brii Pacheco Active PROTONIX 40 MG ORAL TABLET DELAYED RELEASE 1 pill by m outh daily, for acid reflux PANTOPRAZOLE SODIUM 44299362420 No Longer Activ e Brii Pacheco Active DIFLUCAN 100 MG ORAL TABLET 1 tablet by mouth daily, R EPEAT 2ND DOSE IN 7 DAYS IF STILL SYMPTOMATIC FLUCONAZOLE 37040020322 No Long er Active Nilam Weber Active KEFLEX 500 MG ORAL CAPSULE 1 po tid CEPHALEXI N 82137929711 No Longer Active Tali Devi PA-C Active CONCEPT DHA 53.5-38-1 MG ORAL CAPSULE 1 tablet daily [id number] 3 56771182723 Active Oxana Souza LPN Active AMOXICILLIN 875 MG ORAL TABLET 1 tab by mouth twice daily 1 AMOXICILLIN 59544708828 No Longer Active Brii Russ APRN Active TUSSIONEX PENNKINETIC ER 10-8 MG/5ML ORAL SUSPENSION E XTENDED RELEASE 5ml po q12hr PRN Cough HYDROCOD POLST-CHLORPHEN POLST 5 0088242214 No Longer Active Myrna Roberto MD Active ZITHROMAX Z-EMIL 250 MG TABS Take two tablets today and then 1 tablet daily for 4 days AZITHROMYCIN 29447169481 No Longer Active Flaco Rosales MD Active GUAIFENESIN DM 400-20 MG ORAL TABLET 1 pill by mouth t wice daily, if needed for cough DEXTROMETHORPHAN-GUAIFENESIN 02810629858 No Longer Active Rich Rosales MD Active CEFDINIR 300 MG ORAL CAPSULE 1 po BID x 10 days CEFDINIR 22417719916 No Longer Active Jessica Heaton APRN Active CHERATUSSIN AC 100-10 MG/5ML ORAL SYRUP 1 tsp by mouth every 4 hours as needed for cough GUAIFENESIN-CODEINE 97110552689 No Longe r Active Jessica Heaton APRN Active TAMIFLU 75 MG ORAL CAPSULE 1 po BID x 5 days 0 OSELTAMIVIR PHOSPHATE 62464766946 No Longer Active Jose Zhong MD Activ e ZITHROMAX Z-EMIL 250 MG ORAL TABLET 2 today, then 1 daily for 4 d ays AZITHROMYCIN 22688409505 No Longer Active Arie Casper MD Active PROTONIX 40 MG ORAL TABLET DELAYED RELEASE 1 po q a.m. PANTOPRAZOLE SODIUM 58746429819 No Longer Active Arie Casper MD Active BACTRIM DS 800-160 MG ORAL TABLET 1 tab by mouth twice daily 201 05/02/30 TRIMETHOPRIM-SULFAMETHOXAZOLE 19889181527 No Longer Active R KELLIE Sandoval Active NEXPLANON IMPLANT right arm subcutaneously ETONOGESTREL IMPL 30615883905 No Longer Active Brii Russ APRN Active TUSSIONEX PENNKINETIC ER 10-8 MG/5ML ORAL SUSPENSION E XTENDED RELEASE 5ml po q12hr PRN Cough HYDROCOD POLST-CHLORPHEN POLST 5 8702705020 No Longer Active Brii Russ APRN Active CETIRIZINE HCL 10 MG ORAL TABLET 1 po qd PRN Allergies CETIRIZINE HCL 54851515337 No Longer Active Brii Russ APRN Activ e PREDNISONE 20 MG ORAL TABLET 2 tabs daily for 3 days, 1 tab daily for 3 days, 1/2 tab daily for 2 days PREDNISONE 24073670009 No Longer Active Arie Casper MD Active LOMOTIL 2.5-0.025 MG ORAL TABLET 1 tab po four times a day as needed for diarrhea DIPHENOXYLATE-ATROPINE 18076959282 No Lo nger Active Arie Casper MD Active ZOLOFT 50 MG ORAL TABLET 1 tablet by mouth daily 12/08 SERTRALINE HCL 29657637584 No Longer Active Arie Casper MD Ac tive NAPROXEN 500 MG ORAL TABLET Take 1 tab BID NAPR OXEN 60846062757 No Longer Active Arie Casper MD Active CEFDINIR 300 MG ORAL CAPSULE 1 po BID x 10 days CEFDINIR 83824400164 No Longer Active Brii Russ APRN Active PREDNISONE 20 MG ORAL TABLET 1 tablet daily for airway inflammat ion PREDNISONE 90926342003 No Longer Active Brii Russ APRN A ctive CEFDINIR 300 MG ORAL CAPSULE 1 po BID x 10 days CEFDINIR 90917603470 No Longer Active Jono Gagnon DO Active FLONASE 50 MCG/ACT NASAL SUSPENSION 1 spray each nostr il twice daily for allergies and runny nose until gone FLUT ICASONE PROPIONATE 55431851152 No Longer Active Jono Gagnon DO Active ALPRAZOLAM 0.25 MG ORAL TABLET 1 tablet by mouth every 8 hours as needed for stress ALPRAZOLAM 95303790902 No Longer Active Jono Gagnon DO Active ZITHROMAX Z-EMIL 250 MG ORAL TABLET 2 today, then 1 daily for 4 d ays AZITHROMYCIN 27494201468 No Longer Active Arie Casper MD Active PREDNISONE 20 MG ORAL TABLET 2 tabs daily for 3 days, 1 tab daily for 3 days, 1/2 tab daily for 2 days PREDNISONE 50854769797 No Longer Active Brii Russ APRN Active PREDNISONE 20 MG ORAL TABLET 1 tablet twice daily for 2 days, then 1 tablet once daily for 2 days PREDNISONE 01943178789 No Longer Active Brii Russ APRN Active PROMETHAZINE HCL 12.5 MG ORAL TABLET 1 tablet by mouth every 6 hours as needed for nausea/vomiting PROMETHAZINE HCL 27776915337 No L onger Active Jono Gagnon DO Active CITRATE OF MAGNESIA ORAL SOLUTION 1 bottle today for constipatio n MAGNESIUM CITRATE 43716209237 No Longer Active Jono Gagnon DO Active ZOFRAN 4 MG ORAL TABLET 1 TAB PO Q 6 HRS PRN NAUSEA 20 07/10/15 ONDANSETRON HCL 10195991959 No Longer Active Brii Russ APRN Acti ve LOMOTIL 2.5-0.025 MG ORAL TABLET 1 to 2 four times a day as needed for diarrhea DIPHENOXYLATE-ATROPINE 45523551804 No Longer Active January Russ APRN Active AMOXICILLIN 500 MG ORAL TABLET 2 tabs twice a day for 10 days 20 07/09/11 AMOXICILLIN 83576029565 No Longer Active Brii Russ APRN Active CYCLOBENZAPRINE HCL 10 MG ORAL TABLET 1/2 - 1 tablet b y mouth three times daily as needed for muscle spasm/pain CYCLOBENZAPRINE HCL 08136488132 No Longer Active Arie Casper MD Active LOMOTIL 2.5-0.025 MG ORAL TABLET 1 to 2 four times a day as needed for diarrhea DIPHENOXYLATE-ATROPINE 11591937796 No Longer Active Fozia Casper MD Active MACROBID 100 MG ORAL CAPSULE 1 cap by mouth twice daily NITROFURANTOIN MONOHYD MACRO 45435715487 No Longer Active Arie Casper MD Active ZYRTEC ALLERGY 10 MG ORAL CAPSULE 1 po qd CE TIRIZINE HCL 11323111112 No Longer Active Arie Casper MD Active AZITHROMYCIN 250 MG ORAL TABLET 2 po qd x 1 day, then 1 po q d x 4 days AZITHROMYCIN 42048482228 No Longer Active Jillina Fra naomi PAPER STACKER Active PREDNISONE 20 MG ORAL TABLET 2 tabs daily for 3 days, 1 tab daily for 3 days, 1/2 tab daily for 2 days PREDNISONE 97309389599 No Longer Active Jillina Ottoniell PAPER STACKER Active PROMETHAZINE HCL 25 MG ORAL TABLET 1 four times a day as nee ded for vomiting PROMETHAZINE HCL 22173426029 No Longer Active Myrna Roberto MD Active BACTRIM DS 800-160 MG ORAL TABLET 1 twice a day 05/30 SULFAMETHOXAZOLE-TRIMETHOPRIM 73704306339 No Longer Active Myrna Roberto MD Active VICKS DAYQUIL SEVERE COLD/FLU TABLET 1 tab every 6 hours prn 201 02/22/17 [id number] TABS 25365608065 No Longer Active K fany Roberto MD Active GUAIFENESIN-CODEINE 100-10 MG/5ML ORAL SYRUP 2 tsp every 6 hours prn GUAIFENESIN-CODEINE 47617429978 No Longer Active Myrna Roberto MD Active NAPROXEN 500 MG ORAL TABLET one tab PO BID NAPR OXEN 32798578661 No Longer Active Myrna Roberto MD Active AUGMENTIN 875-125 MG ORAL TABLET 1 tab by mouth twice daily with food AMOXICILLIN-POT CLAVULANATE 81802899040 No Longer Act zaid Liliana Estrada MD PhD Active AMOXICILLIN 500 MG ORAL CAPSULE 1 tab by mouth 3 times daily 201 02/21/05 AMOXICILLIN 61320332508 No Longer Active Liliana Estrada MD PhD Active TESSALON PERLES 100 MG ORAL CAPSULE 1 tablet by mouth 3 times da cory BENZONATATE 47628940731 No Longer Active Liliana Estrada MD PhD Active FLAGYL 500 MG ORAL TABLET 1 tablet by mouth two times daily 2014 METRONIDAZOLE 97820988783 No Longer Active Nilam Doran tive ZITHROMAX 250 MG ORAL TABLET 2 po today, then 1 po q days 2-5 20 06/08/16 AZITHROMYCIN 64213473242 No Longer Active Arie Casper MD Active VITAMINS 0.8 MG ORAL TABLET take 1 tab po qday [id number] 01612834722 No Longer Active Arie Casper MD Active IBUPROFEN 800 MG ORAL TABLET take one po Q 8 hours 201 02/01/16 IBUPROFEN 59350174022 No Longer Active Arie Casper MD Acti ve [facility] TUSSIN COUGH/COLD CF 5-10-100 MG/5ML ORAL LIQUID 2 teasp oons every 4 hours [id number] 57562258232 No Longer Active Blaine Casper MD Active COMTREX COLD/COUGH DAY/NITE MS 5-2-10-325 MG ORAL 2 caps deja ry 4 hours [id number] 54451552505 No Longer Active Landon Casper MD Active CHLORASEPTIC MAX SORE THROAT 15-10 MG MOUTH/THROAT LOZENGE 1 every 2 hours prn BENZOCAINE-MENTHOL 25970608093 No Longer Active Arie Casper MD Active PREDNISONE 20 MG ORAL TABLET 2 tabs daily for 3 days, 1 tab daily for 3 days, 1/2 tab daily for 2 days PREDNISONE 27176657577 No Longer Active Jose Zhong MD Active AZITHROMYCIN 250 MG ORAL TABLET 2 po qd x 1 day, then 1 po q d x 4 days AZITHROMYCIN 65736700349 No Longer Active Jose Mcwilliams MD Active ZOFRAN ODT 4 MG ORAL TABLET DISINTEGRATING 1 po q6hr PRN Nausea ONDANSETRON 35503068080 No Longer Active Rich Rosales MD Active ZOFRAN 4 MG ORAL TABLET 1 tablet every 4 hours ONDANSETRON HCL 36596699671 No Longer Active Rich Rosales MD Activ e MUCINEX 600 MG ORAL TABLET EXTENDED RELEASE 12 HOUR Ta ke 1-2 tablets every 12 hours GUAIFENESIN 06600215569 No Longer Active Rich Rosales MD Active BACTRIM 400-80 MG ORAL TABLET take one po BID SULFAMETHOXAZOLE-TRIMETHOPRIM 74598333637 No Longer Active Abelardo HERNANDEZ Active AZITHROMYCIN 500 MG ORAL TABLET 1 PO q day x 6 days 20 03/02/23 AZITHROMYCIN 14026122488 No Longer Active Tin HERNANDEZ Activ e ZITHROMAX 250 MG ORAL TABLET 2 po today, then 1 po q days 2-5 20 10/03/08 AZITHROMYCIN 46377733832 No Longer Active Arie Casper MD Active ZITHROMAX 250 MG ORAL TABLET 2 po today, then 1 po q days 2-5 20 09/23/25 AZITHROMYCIN 82835423919 No Longer Active Arie Casper MD Active AMOXICILLIN 500 MG ORAL CAPSULE 1 tab by mouth 3 times daily 201 11/24/09 AMOXICILLIN 55018836702 No Longer Active Arie Casper MD Active BACTRIM DS 800-160 MG ORAL TABLET 1 tab by mouth twice daily 201 11/03/14 TRIMETHOPRIM-SULFAMETHOXAZOLE 59578682543 No Longer Active Fozia Casper MD Active AMOXICILLIN 500 MG ORAL TABLET take 1 tab po TID 08/05 AMOXICILLIN 19495010382 No Longer Active Arie Casper MD Acti [...] 4 hours ZOFRAN 4 MG ORAL TABLET 511588 ONDANSETRON HCL Inactive ZOFRAN ODT 4 MG [...] COLD/COUGH DAY/NITE MS 5-2-10-325 MG ORA L [id number] Inactive [facility] TUSSIN COUGH/COLD CF 5-10-100 MG/5ML ORAL LIQUID 2 teasp oons every 4 hours [facility] TUSSIN COUGH/COLD CF 5-10-100 MG/5ML ORAL LI QUID [id number] Inactive IBUPROFEN 800 MG ORAL TABLET take one po Q 8 hours 201 02/01/16 IBUPROFEN 800 MG ORAL TABLET IBUPROFEN Inactive VITAMINS 0.8 MG ORAL TABLET take 1 tab po qday VITAMINS 0.8 MG ORAL TABLET [id number] E-FA Inactive TESSALON PERLES 100 MG ORAL CAPSULE 1 tablet by mouth 3 times da cory TESSALON PERLES 100 MG ORAL CAPSULE 19730630 BENZONATATE Inactive AMOXICILLIN 500 MG ORAL CAPSULE 1 tab by mouth 3 times daily 201 02/21/05 AMOXICILLIN 500 MG ORAL CAPSULE 039645 AMOXICILLIN Inactive GUAIFENESIN-CODEINE 100-10 MG/5ML ORAL SYRUP 2 tsp every 6 hours prn GUAIFENESIN-CODEINE 100-10 MG/5ML ORAL SYRUP 646404 GUAIFENESIN-CODEINE Inactive VICKS DAYQUIL SEVERE COLD/FLU TABLET 1 tab every 6 hours prn 201 02/22/17 VICKS DAYQUIL SEVERE COLD/FLU TABLET PHENYLEPHRI OO-UE-VO-APAP TABS Inactive BACTRIM DS 800-160 MG ORAL TABLET 1 twice a day 05/30 BACTRIM DS 800-160 MG ORAL TABLET 838404 SULFAMETHOXAZOLE-TRIMETHOPRIM Inactiv e PROMETHAZINE HCL 25 MG ORAL TABLET 1 four times a day as nee ded for vomiting PROMETHAZINE HCL 25 MG ORAL TABLET 504971 PROMETHAZINE HCL Inactive ZYRTEC ALLERGY 10 MG ORAL CAPSULE 1 po qd ZYRTEC ALLERGY 10 MG ORAL CAPSULE CETIRIZINE HCL Inactive MACROBID 100 MG ORAL CAPSULE 1 cap by mouth twice daily MACROBID 100 MG ORAL CAPSULE 5275812 NITROFURANTOIN MONOHYD MACRO In active LOMOTIL 2.5-0.025 MG ORAL TABLET 1 to 2 four times a day as needed for diarrhea LOMOTIL 2.5-0.025 MG ORAL TABLET 9794400 DIPHENOXYLATE-ATROPINE Inactive CYCLOBENZAPRINE HCL 10 MG ORAL TABLET 1/2 - 1 tablet b y mouth three times daily as needed for muscle spasm/pain CYCLOBEN ZAPRINE HCL 10 MG ORAL TABLET 083820 CYCLOBENZAPRINE HCL Inactive AMOXICILLIN 500 MG ORAL TABLET 2 tabs twice a day for 10 days 20 07/09/11 AMOXICILLIN 500 MG ORAL TABLET 377948 AMOXICILLIN I nactive LOMOTIL 2.5-0.025 MG ORAL TABLET 1 to 2 four times a day as needed for diarrhea LOMOTIL 2.5-0.025 MG ORAL TABLET 6230357 DIPHENOXYLATE-ATROPINE Inactive ZOFRAN 4 MG ORAL TABLET 1 TAB PO Q 6 HRS PRN NAUSEA 20 07/10/15 ZOFRAN 4 MG ORAL TABLET 784433 ONDANSETRON HCL Inactive CITRATE OF MAGNESIA ORAL SOLUTION 1 bottle today for constipatio n CITRATE OF MAGNESIA ORAL SOLUTION 2142282 MAGNESIUM CITR ATE Inactive PROMETHAZINE HCL 12.5 MG ORAL TABLET 1 tablet by mouth every 6 hours as needed for nausea/vomiting PROMETHAZINE HCL 12.5 MG ORA L TABLET 132621 PROMETHAZINE HCL Inactive PREDNISONE 20 MG ORAL TABLET 1 tablet twice daily for 2 days, then 1 tablet once daily for 2 days PREDNISONE 20 MG ORAL TABLET 439437 PREDNISONE Inactive ALPRAZOLAM 0.25 MG ORAL TABLET 1 tablet by mouth every 8 hours as needed for stress ALPRAZOLAM 0.25 MG ORAL TABLET 608050 ALPRA ZOLAM Inactive FLONASE 50 MCG/ACT NASAL SUSPENSION 1 spray each nostr il twice daily for allergies and runny nose until gone FLON ASE 50 MCG/ACT NASAL SUSPENSION 8763419 FLUTICASONE PROPIONATE Inactive PREDNISONE 20 MG ORAL TABLET 1 tablet daily for airway inflammat ion PREDNISONE 20 MG ORAL TABLET 706404 PREDNISONE [place] ctive NAPROXEN 500 MG ORAL TABLET Take 1 tab BID NAPROXEN 500 MG ORAL TABLET 392743 NAPROXEN Inactive ZOLOFT 50 MG ORAL TABLET 1 tablet by mouth daily 12/08 ZOLOFT 50 MG ORAL TABLET 454607 SERTRALINE HCL Inactive LOMOTIL 2.5-0.025 MG ORAL TABLET 1 tab po four times a day as needed for diarrhea LOMOTIL 2.5-0.025 MG ORAL TABLET 0905112 DIPHENOXYLATE-ATROPINE Inactive CETIRIZINE HCL 10 MG ORAL TABLET 1 po qd PRN Allergies CETIRIZINE HCL 10 MG ORAL TABLET 7331097 CETIRIZINE HCL Inactiv e TUSSIONEX PENNKINETIC ER 10-8 MG/5ML ORAL SUSPENSION E XTENDED RELEASE 5ml po q12hr PRN Cough TUSSIONEX PENNKINETI C ER 10-8 MG/5ML ORAL SUSPENSION EXTENDED RELEASE HYDROCOD POLST-CHLORPHEN POLST I nactive NEXPLANON IMPLANT right arm subcutaneously NEXPLANON IMPLANT ETONOGESTREL IMPL Inactive PROTONIX 40 MG ORAL TABLET DELAYED RELEASE 1 po q a.m. PROTONIX 40 MG ORAL TABLET DELAYED RELEASE 706520 PANTOPRAZOLE SODI UM Inactive CHERATUSSIN AC 100-10 MG/5ML ORAL SYRUP 1 tsp by mouth every 4 hours as needed for cough CHERATUSSIN AC 100-10 MG/5ML ORAL SYRUP 9 37869 GUAIFENESIN-CODEINE Inactive GUAIFENESIN DM 400-20 MG ORAL [...] tid K EFLEX 500 MG ORAL CAPSULE 678414 CEPHALEXIN Inactive DIFLUCAN 100 MG ORAL TABLET 1 tablet by mouth daily, R EPEAT 2ND DOSE IN 7 DAYS IF STILL SYMPTOMATIC DIFLUCAN 100 MG ORAL TABLET 52523 8 FLUCONAZOLE Inactive PROTONIX 40 MG ORAL TABLET DELAYED RELEASE 1 pill by m outh daily, for acid reflux PROTONIX 40 MG ORAL TABLET DELAYED RELEAS E 728676 PANTOPRAZOLE SODIUM Inactive ALPRAZOLAM 0.25 MG ORAL TABLET 1 tablet by mouth twice a day as needed for stress/anxiety ALPRAZOLAM 0.25 MG ORAL TABLET 926938 ALPRAZOLAM Inactive ESCITALOPRAM OXALATE 10 MG ORAL TABLET take 1 tab po qhs for mod ESCITALOPRAM OXALATE 10 MG ORAL TABLET 450315 ESCITALOP JO OXALATE Inactive AMOXICILLIN 500 MG ORAL TABLET take 1 tab po TID 08/05 AMOXICILLIN 500 MG ORAL TABLET 672525 AMOXICILLIN Inactive AMOXICILLIN 500 MG ORAL CAPSULE 1 tab by mouth 3 times daily 201 11/24/09 AMOXICILLIN 500 MG ORAL CAPSULE 977811 AMOXICILLIN Inactive ZITHROMAX 250 MG ORAL TABLET 2 po today, then 1 po q days 2-5 20 09/23/25 ZITHROMAX 250 MG ORAL TABLET 946096 AZITHROMYCIN Arlen ctive ZITHROMAX 250 MG ORAL TABLET 2 po today, then 1 po q days 2-5 20 10/03/08 ZITHROMAX 250 MG ORAL TABLET 371106 AZITHROMYCIN Arlen ctive AZITHROMYCIN 500 MG ORAL TABLET 1 PO q day x 6 days 20 03/02/23 AZITHROMYCIN 500 MG ORAL TABLET 2002015 AZITHROMYCIN Inactive BACTRIM 400-80 MG ORAL TABLET take one po BID BACTRIM 400- 80 MG ORAL TABLET 380843 SULFAMETHOXAZOLE-TRIMETHOPRIM Inactive AZITHROMYCIN 250 MG ORAL TABLET 2 po qd x 1 day, then 1 po q d x 4 days AZITHROMYCIN 250 MG ORAL TABLET 123699 AZITHROMY ALLISON Inactive PREDNISONE 20 MG ORAL TABLET 2 tabs daily for 3 days, 1 tab daily for 3 days, 1/2 tab daily for 2 days PREDNISONE 20 MG ORAL T ABLET 793918 PREDNISONE Inactive ZITHROMAX 250 MG ORAL TABLET 2 po today, then 1 po q days 2-5 20 06/08/16 ZITHROMAX 250 MG ORAL TABLET 489873 AZITHROMYCIN Arlen ctive FLAGYL 500 MG ORAL TABLET 1 tablet by mouth two times daily 2014 FLAGYL 500 MG ORAL TABLET 198365 METRONIDAZOLE Inacti ve AUGMENTIN 875-125 MG ORAL TABLET 1 tab by mouth twice daily with food AUGMENTIN 875-125 MG ORAL TABLET 088593 AMOXICIL ELSA-POT CLAVULANATE Inactive NAPROXEN 500 MG ORAL TABLET one tab PO BID NAPROXEN 500 MG ORAL TABLET 836923 NAPROXEN Inactive PREDNISONE 20 MG ORAL TABLET 2 tabs daily for 3 days, 1 tab daily for 3 days, 1/2 tab daily for 2 days PREDNISONE 20 MG ORAL T ABLET 688787 PREDNISONE Inactive AZITHROMYCIN 250 MG ORAL TABLET 2 po qd x 1 day, then 1 po q d x 4 days AZITHROMYCIN 250 MG ORAL TABLET 468190 AZITHROMY ALLISON Inactive PREDNISONE 20 MG ORAL TABLET 2 tabs daily for 3 days, 1 tab daily for 3 days, 1/2 tab daily for 2 days PREDNISONE 20 MG ORAL T ABLET 108915 PREDNISONE Inactive ZITHROMAX Z-EMIL 250 MG ORAL TABLET 2 today, then 1 daily for 4 d ays ZITHROMAX Z-EMIL 250 MG ORAL TABLET 079848 AZITHROMYCIN Inactive CEFDINIR 300 MG ORAL CAPSULE 1 po BID x 10 days 12/18 CEFDINIR 300 MG ORAL CAPSULE 782938 CEFDINIR Inactive CEFDINIR 300 MG ORAL CAPSULE 1 po BID x 10 days CEFDINIR 300 MG ORAL CAPSULE 545083 CEFDINIR Inactive PREDNISONE 20 MG ORAL TABLET 2 tabs daily for 3 days, 1 tab daily for 3 days, 1/2 tab daily for 2 days PREDNISONE 20 MG ORAL T ABLET 848861 PREDNISONE Inactive BACTRIM DS 800-160 MG ORAL TABLET 1 tab by mouth twice daily 201 05/02/30 BACTRIM DS 800-160 MG ORAL TABLET 400578 TRIMETHOPRIM-SULFAMETHOXAZOLE Inactive ZITHROMAX Z-EMIL 250 MG ORAL TABLET 2 today, then 1 daily for 4 d ays ZITHROMAX Z-EMIL 250 MG ORAL TABLET 461939 AZITHROMYCIN Inactive TAMIFLU 75 MG ORAL CAPSULE 1 po BID x 5 days 0 TAMIFLU 75 MG ORAL CAPSULE 067264 OSELTAMIVIR PHOSPHATE Inactive CEFDINIR 300 MG ORAL CAPSULE 1 po BID x 10 days 3/13 CEFDINIR 300 MG ORAL CAPSULE 20030127 CEFDINIR Inactive ZITHROMAX Z-EMIL 250 MG TABS Take two tablets today and then 1 tablet daily for 4 days ZITHROMAX Z-EMIL 250 MG TABS 800100 AZITHROM YCIN Inactive AMOXICILLIN 875 MG ORAL TABLET 1 tab by mouth twice daily AMOXICILLIN 875 MG ORAL TABLET 751314 AMOXICILLIN Inactive Advance Directives Directive Description Start [...] Value Unit Range Description blood pressure, diastolic 75 mm[Hg] BP kennedy [...] 11 .0-15.0 platelet count 280 THOUSAND/UL 10*3/mm3 211-021 5927/02/18 mean platelet volume 11.6 fL 7.5-12.5 Lab [...] semiquantitative negative urobilinogen, urine, semiquantitative (dipstick) 0.2 Encounters Code Encounter Date Provider Facility [id number] Vst-Est Level IV 13:45:[address] Tali Devi PA-C [facility]-46229 [id number] Vst-Est Level III 09:41:31 CDT Arie Casper MD [facility]95795 [id number] Vst-Est Level III 18:20:11 CDT Me robin [facility]09320 [id number] Vst-Est Level III 17:21:41 CDT Me robin [facility]67490 [id number] Vst-Est Level IV 13:30:22 C NIC Casper MD [facility]43089 Level 4 Est. Patient 13:05:26 CDT Myrna maldonado MD [facility]36749 52561-May Vst-Est Level IV 20:50:21 C NIC Casper MD [facility] Level 3 Est. 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 Patient 14:55:50 BILLET HEATER Jose Zhong MD [facility] CPT-21780 Level 3 Est. Patient 10:21:41 BILLET HEATER Arie mcqueen MD [facility] CPT-01571 Level 3 Est. Patient 11:35:15 BILLET HEATER Arie mcqueen MD [facility] CPT-21137 Level 3 Est. Patient 15:40:28 CDT Brii Are ll [facility] CPT-57598 Level 3 Est. Patient 16:40:36 CDT Arie mcqueen MD [facility] CPT-76294 Level 4 Est. Patient 15:29:22 BILLET HEATER Arie mcqueen MD [facility] CPT-19446 Level 3 Est. Patient 15:18:16 BILLET HEATER Jono black [facility] CPT-05793 Level 4 Est. Patient 12:08:40 BILLET HEATER Brii Are ll [facility] CPT-80123 Level 3 Est. Patient 09:24:42 CDT Brii Are [facility] CPT-36665 Level 3 Est. Patient 09:12:56 CDT Arie mcqueen MD [facility] CPT-48470 Level 3 Est. Patient 16:40:54 CDT Jose Zhong MD [facility] CPT-95848 Level 2 Est. Patient 13:01:13 CDT Brii Are ll [facility] CPT-49870 Level 3 Est. Patient 11:55:30 BILLET HEATER Jono black [facility] CPT-96168 Level 3 Est. Patient 09:52:36 BILLET HEATER Brii Are ll [facility] CPT-14935 Level 3 Est. Patient 16:25:33 BILLET HEATER Rich Rosales MD [facility] CPT-47390 Level 3 Est. Patient 20:33:55 CDT Arie mcqueen MD [facility] CPT-52353 Level 3 Est. Patient 14:18:20 CDT Rich Rosales MD [facility] CPT-85894 Level 4 Est. Patient 09:34:31 CDT Arie mcqueen MD [facility] CPT-69244 Level 3 Est. Patient 09:08:55 BILLET HEATER Liliana vincent MD PhD [facility] CPT-47784 Level 3 Est. Patient 16:44:07 BILLET HEATER Arie mcqueen MD [facility] CPT-21494 Level 3 Est. Patient 10:44:27 CDT Arie mcqueen MD [facility] CPT-91839 Level 3 Est. Patient 08:55:41 CDT Jose Zhong MD [facility] CPT-83478 Level 3 Est. Patient 18:37:31 CDT Liliana vincent MD PhD [facility] CPT-68710 Level 3 Est. Patient 14:28:23 CDT Abelardo HERNANDEZ [facility] CPT-30090 Level 3 Est. Patient 15:18:13 BILLET HEATER Arie mcqueen MD [facility] CPT-63618 Level 3 Est. Patient 10:11:29 BILLET HEATER Arie mcqueen MD [facility] CPT-60042 Level 3 Est. Patient 10:55:57 BILLET HEATER Jono black DO [facility] CPT-78058 Level 3 Est. Patient 17:29:05 CDT Arie mcqueen MD [facility] Procedures Code Procedure Name Date Entry Date Standard Desc ription CPT-03911 Sono OB transvag XRAY USE ONLY 17:11:12 CS T CPT-03132 UHCG Urine - MARC ONLY 12:13:59 BILLET HEATER 12/11 CPT-79782 Spec Collection and Handling Fee 12:13:[address] CPT-57606 Visit 12:13:59 BILLET HEATER CPT-53397 First Vx - Ix admin via ID I M or jet injects without counseling by physician 13:00:15 BILLET HEATER CPT-83582 Flulaval Intramuscular Injectable 13:00:15 BILLET HEATER CPT-46768 Urine Dip (Floor Use Only) 12:20:20 BILLET HEATER 201 06/03/24 CPT-97473 Sono Soft Tissue Head and Neck - XRAY US E ONLY 17:10:14 CDT CPT-01298 Ear Wash with irrigation 17:21:41 CDT 07/04 CPT-10708 Nexplanon Removal 15:40:28 CDT CPT-57314 Sono transvag pelvis non OB uterus ovari es cervix - XRAY USE ONLY 08:58:14 BILLET HEATER CPT-57893 UA w micro - LAB USE ONLY 16:04:56 BILLET HEATER 2015 CPT-32569 Wet Prep/GEN - LAB USE ONLY 16:04:56 BILLET HEATER 20 08/10/29 CPT-50036 First Vx - Ix admin via ID I M or jet injects without counseling by physician 16:57:10 CDT CPT-92467 Fluzone Preservative Free Intramuscular Suspension 16:57:10 CDT CPT-J0696 Rocephin 1000 mg (Ceftriaxone) 11:49:23 CDT CPT-J1040 Depo Medrol 80 mg (Methyl Prednisolone A cetate) 11:49:23 CDT CPT-J1100 Decadron 8mg (Dexamethasone) 11:49:23 CDT 2 CPT-11448 Abx/Therapy Injection 11:49:23 CDT CPT-36352 Abx/Therapy Injection 11:49:23 CDT CPT-93068 Abd compl w upright 09:07:26 BILLET HEATER CPT-65253 Ear Wash 16:12:47 BILLET HEATER CPT-OV Office Visit 11:12:01 CDT CPT-OV Office Visit 15:30:23 CDT CPT-43798 Sono pelvis non OB uterus ovaries cervix 15:50:44 CDT CPT-01698 Hand comp min 3V 16:42:32 CDT CPT-01528 Abd compl w upright 12:17:01 CDT CPT-07560 Nexplanon Placement 15:07:39 BILLET HEATER CPT-31061 Removal of IUD 15:07:39 BILLET HEATER CPT-97853 TB Tubersol 12:09:32 CDT CPT-72862 TB Tubersol 13:55:43 CDT
--- OUTSIDE RECORDS SUMMARY | 2020-03-03 06:57 | XMS REPORT | Clinical Summary ---
Author Author Admin, Diamante Marcelo Organization [facility] Address Unknown Phone Unavailable [...] infective Preventive health care V70.0 Active Nilam Plattolga a Routine general medical examination at a [...] Brii cheema APRN Dysthymic disorder URI 465.9 Active Jono Gagnon DO Acu te upper respiratory infections of unspecified site Vaginal bleeding 623.8 Resolved Jose Zhong MD Other specified noninflammatory disorders of vagina High risk sexual behavior V69.2 Active Arie Casper MD High-risk sexual behavior GERD 530.81 Active Arie Casper MD Esophageal reflux Encounter for surveillance of implantable subdermal contraceptiv e Active Brii Russ MOLD DESIGN ENGINEER Vaginal bleeding 623.8 Active Arie Casper MD Other specified noninflammatory disorders of vagina Influenza like illness 487.1 Active Jose Mcwilliams MD Influenza with other respiratory manifestations Sinusitis 473.9 Active Jessica Heaton MOLD DESIGN ENGINEER Unspecified sinusitis (chronic) Other mixed anxiety 300.00 [...] Cerumen impaction, bilateral 380.4 Active Brii Russ MOLD DESIGN ENGINEER Impacted cerumen Tonsillar enlargement 474.11 Active Brii Yepezboris MOLD DESIGN ENGINEER Hypertrophy of tonsils alone Influenza Vaccination for Prophylaxis V04.81 Inactive Brii Russ MOLD DESIGN ENGINEER Need for prophylactic vaccin ation and inoculation against influenza Submandibular lymph node 785.6 Active Brii escalante MOLD DESIGN ENGINEER Enlargement of lymph nodes Influenza Vaccination for Prophylaxis V04.81 Inactive Arie Casper MD Need for prophylactic vaccin ation and inoculation against influenza Influenza Vaccination for Prophylaxis V04.81 Inactive Tali Devi PA-C Need for prophylactic vaccin ation and inoculation against influenza Dysuria 788.1 Active Tali Devi PA-C Dysuria Pelvic pain, acute 789.09 Active Tali Devi PA-C Abdominal pain, other specified site; multiple sites [...] 3-4 times per day 12/11 PYRIDOXINE HCL 77713296724 Active Myrna Roberto MD Active UNISOM SLEEPTABS 25 MG ORAL TABLET one tab PO qhs DOXYLAMINE SUCCINATE (SLEEP) 20386383347 Active Myrna Roberto MD Active TYLENOL 325 MG ORAL CAPSULE PRN ACETAMINOPHEN 000 62030676 Active Brii Pacheco Active ESCITALOPRAM OXALATE 10 MG ORAL TABLET take 1 tab po qhs for mod ESCITALOPRAM OXALATE 69207535569 No Longer Active Brii Pacheco Active ALPRAZOLAM 0.25 MG ORAL TABLET 1 tablet by mouth twice a day as needed for stress/anxiety ALPRAZOLAM 53982976753 No Longer Active Brii Pacheco Active PROTONIX 40 MG ORAL TABLET DELAYED RELEASE 1 pill by m outh daily, for acid reflux PANTOPRAZOLE SODIUM 07644399668 No Longer Activ e Brii Chewna Active DIFLUCAN 100 MG ORAL TABLET 1 tablet by mouth daily, R EPEAT 2ND DOSE IN 7 DAYS IF STILL SYMPTOMATIC FLUCONAZOLE 07485929017 No Long er Active Nilam Weber Active KEFLEX 500 MG ORAL CAPSULE 1 po tid CEPHALEXI N 92494748910 No Longer Active Tali Devi PA-C Active CONCEPT DHA 53.5-38-1 MG ORAL CAPSULE 1 tablet daily [id number] 3 68567065356 Active Oxana Souza LPN Active AMOXICILLIN 875 MG ORAL TABLET 1 tab by mouth twice daily 1 AMOXICILLIN 05747387001 No Longer Active Brii Russ APRN Active TUSSIONEX PENNKINETIC ER 10-8 MG/5ML ORAL SUSPENSION E XTENDED RELEASE 5ml po q12hr PRN Cough HYDROCOD POLST-CHLORPHEN POLST 5 5791509943 No Longer Active Myrna Roberto MD Active ZITHROMAX Z-EMIL 250 MG TABS Take two tablets today and then 1 tablet daily for 4 days AZITHROMYCIN 37836290333 No Longer Active Flaco Rosales MD Active GUAIFENESIN DM 400-20 MG ORAL TABLET 1 pill by mouth t wice daily, if needed for cough DEXTROMETHORPHAN-GUAIFENESIN 04356944033 No Longer Active Rich Roasles MD Active CEFDINIR 300 MG ORAL CAPSULE 1 po BID x 10 days CEFDINIR 98825159489 No Longer Active Jessica Heaton APRN Active CHERATUSSIN AC 100-10 MG/5ML ORAL SYRUP 1 tsp by mouth every 4 hours as needed for cough GUAIFENESIN-CODEINE 96451937749 No Longe r Active Jessica Heaton APRN Active TAMIFLU 75 MG ORAL CAPSULE 1 po BID x 5 days 0 OSELTAMIVIR PHOSPHATE 15672857275 No Longer Active Jose Zhong MD Activ e ZITHROMAX Z-EMIL 250 MG ORAL TABLET 2 today, then 1 daily for 4 d ays AZITHROMYCIN 72155877087 No Longer Active Arie Casper MD Active PROTONIX 40 MG ORAL TABLET DELAYED RELEASE 1 po q a.m. PANTOPRAZOLE SODIUM 78629910431 No Longer Active Arie Casper MD Active BACTRIM DS 800-160 MG ORAL TABLET 1 tab by mouth twice daily 201 05/02/30 TRIMETHOPRIM-SULFAMETHOXAZOLE 03144949003 No Longer Active R uth Ty, RMA Active NEXPLANON IMPLANT right arm subcutaneously ETONOGESTREL IMPL 05347998068 No Longer Active Brii Russ APRN Active TUSSIONEX PENNKINETIC ER 10-8 MG/5ML ORAL SUSPENSION E XTENDED RELEASE 5ml po q12hr PRN Cough HYDROCOD POLST-CHLORPHEN POLST 5 9406590189 No Longer Active Brii Russ APRN Active CETIRIZINE HCL 10 MG ORAL TABLET 1 po qd PRN Allergies CETIRIZINE HCL 41738309665 No Longer Active Brii Russ APRN Activ e PREDNISONE 20 MG ORAL TABLET 2 tabs daily for 3 days, 1 tab daily for 3 days, 1/2 tab daily for 2 days PREDNISONE 45641491753 No Longer Active Arie Casper MD Active LOMOTIL 2.5-0.025 MG ORAL TABLET 1 tab po four times a day as needed for diarrhea DIPHENOXYLATE-ATROPINE 21156912504 No Lo nger Active Arie Casper MD Active ZOLOFT 50 MG ORAL TABLET 1 tablet by mouth daily 12/08 SERTRALINE HCL 43254065318 No Longer Active Arie Casper MD Ac tive NAPROXEN 500 MG ORAL TABLET Take 1 tab BID NAPR OXEN 57780361610 No Longer Active Arie Casper MD Active CEFDINIR 300 MG ORAL CAPSULE 1 po BID x 10 days CEFDINIR 03764698183 No Longer Active Brii Russ APRN Active PREDNISONE 20 MG ORAL TABLET 1 tablet daily for airway inflammat ion PREDNISONE 62537305930 No Longer Active Brii Russ APRN A ctive CEFDINIR 300 MG ORAL CAPSULE 1 po BID x 10 days CEFDINIR 99892093083 No Longer Active Jono Gagnon DO Active FLONASE 50 MCG/ACT NASAL SUSPENSION 1 spray each nostr il twice daily for allergies and runny nose until gone FLUT ICASONE PROPIONATE 70716874394 No Longer Active Jono Gagnon DO Active ALPRAZOLAM 0.25 MG ORAL TABLET 1 tablet by mouth every 8 hours as needed for stress ALPRAZOLAM 81552299113 No Longer Active Jono Gagnon DO Active ZITHROMAX Z-EMIL 250 MG ORAL TABLET 2 today, then 1 daily for 4 d ays AZITHROMYCIN 33478323412 No Longer Active Arie Casper MD Active PREDNISONE 20 MG ORAL TABLET 2 tabs daily for 3 days, 1 tab daily for 3 days, 1/2 tab daily for 2 days PREDNISONE 63846294647 No Longer Active Brii Russ APRN Active PREDNISONE 20 MG ORAL TABLET 1 tablet twice daily for 2 days, then 1 tablet once daily for 2 days PREDNISONE 03544580051 No Longer Active Brii Russ APRN Active PROMETHAZINE HCL 12.5 MG ORAL TABLET 1 tablet by mouth every 6 hours as needed for nausea/vomiting PROMETHAZINE HCL 63031493729 No L onger Active Jono Gagnon DO Active CITRATE OF MAGNESIA ORAL SOLUTION 1 bottle today for constipatio n MAGNESIUM CITRATE 24203526938 No Longer Active Jono Gagnon DO Active ZOFRAN 4 MG ORAL TABLET 1 TAB PO Q 6 HRS PRN NAUSEA 20 07/10/15 ONDANSETRON HCL 75396338349 No Longer Active Brii Russ APRN Acti ve LOMOTIL 2.5-0.025 MG ORAL TABLET 1 to 2 four times a day as needed for diarrhea DIPHENOXYLATE-ATROPINE 43239236875 No Longer Active January Russ APRN Active AMOXICILLIN 500 MG ORAL TABLET 2 tabs twice a day for 10 days 20 07/09/11 AMOXICILLIN 81647304225 No Longer Active Brii Russ APRN Active CYCLOBENZAPRINE HCL 10 MG ORAL TABLET 1/2 - 1 tablet b y mouth three times daily as needed for muscle spasm/pain CYCLOBENZAPRINE HCL 60538337536 No Longer Active Arie Casper MD Active LOMOTIL 2.5-0.025 MG ORAL TABLET 1 to 2 four times a day as needed for diarrhea DIPHENOXYLATE-ATROPINE 14584314008 No Longer Active Fozia Casper MD Active MACROBID 100 MG ORAL CAPSULE 1 cap by mouth twice daily NITROFURANTOIN MONOHYD MACRO 08705789451 No Longer Active Arie Casper MD Active ZYRTEC ALLERGY 10 MG ORAL CAPSULE 1 po qd CE TIRIZINE HCL 28365459625 No Longer Active Arie Casper MD Active AZITHROMYCIN 250 MG ORAL TABLET 2 po qd x 1 day, then 1 po q d x 4 days AZITHROMYCIN 28872903461 No Longer Active Jillina Fra naomi MOLD DESIGN ENGINEER Active PREDNISONE 20 MG ORAL TABLET 2 tabs daily for 3 days, 1 tab daily for 3 days, 1/2 tab daily for 2 days PREDNISONE 93977897797 No Longer Active Jillina Frazell MOLD DESIGN ENGINEER Active PROMETHAZINE HCL 25 MG ORAL TABLET 1 four times a day as nee ded for vomiting PROMETHAZINE HCL 28312916342 No Longer Active Myrna Roberto MD Active BACTRIM DS 800-160 MG ORAL TABLET 1 twice a day 05/30 SULFAMETHOXAZOLE-TRIMETHOPRIM 93449693742 No Longer Active Myrna Roberto MD Active VICKS DAYQUIL SEVERE COLD/FLU TABLET 1 tab every 6 hours prn 201 02/22/17 [id number] TABS 43903414308 No Longer Active Chris Roberto MD Active GUAIFENESIN-CODEINE 100-10 MG/5ML ORAL SYRUP 2 tsp every 6 hours prn GUAIFENESIN-CODEINE 34764256813 No Longer Active Myrna Roberto MD Active NAPROXEN 500 MG ORAL TABLET one tab PO BID NAPR OXEN 52009500815 No Longer Active Myrna Roberto MD Active AUGMENTIN 875-125 MG ORAL TABLET 1 tab by mouth twice daily with food AMOXICILLIN-POT CLAVULANATE 00923707861 No Longer Act zaid Liliana Estrada MD PhD Active AMOXICILLIN 500 MG ORAL CAPSULE 1 tab by mouth 3 times daily 201 02/21/05 AMOXICILLIN 85469527616 No Longer Active Liliana Estrada MD PhD Active TESSALON PERLES 100 MG ORAL CAPSULE 1 tablet by mouth 3 times da cory BENZONATATE 15040925623 No Longer Active Liliana Estrada MD PhD Active FLAGYL 500 MG ORAL TABLET 1 tablet by mouth two times daily 2014 METRONIDAZOLE 55319535138 No Longer Active Nilam ida Ac tive ZITHROMAX 250 MG ORAL TABLET 2 po today, then 1 po q days 2-5 20 06/08/16 AZITHROMYCIN 41941222634 No Longer Active Arie Casper MD Active VITAMINS 0.8 MG ORAL TABLET take 1 tab po qday [id number] 08494868287 No Longer Active Arie Casper MD Active IBUPROFEN 800 MG ORAL TABLET take one po Q 8 hours 201 02/01/16 IBUPROFEN 22917351036 No Longer Active Arie Casper MD Acti ve [facility] TUSSIN COUGH/COLD CF 5-10-100 MG/5ML ORAL LIQUID 2 teasp oons every 4 hours [id number] 11737794013 No Longer Active Blaine Casper MD Active COMTREX COLD/COUGH DAY/NITE MS 5-2-10-325 MG ORAL 2 caps deja ry 4 hours [id number] 13939126680 No Longer Active Landon Casper MD Active CHLORASEPTIC MAX SORE THROAT 15-10 MG MOUTH/THROAT LOZENGE 1 every 2 hours prn BENZOCAINE-MENTHOL 11711304520 No Longer Active Arie Casper MD Active PREDNISONE 20 MG ORAL TABLET 2 tabs daily for 3 days, 1 tab daily for 3 days, 1/2 tab daily for 2 days PREDNISONE 41062579008 No Longer Active Jose Zhong MD Active AZITHROMYCIN 250 MG ORAL TABLET 2 po qd x 1 day, then 1 po q d x 4 days AZITHROMYCIN 67089600770 No Longer Active Jose Mcwilliams MD Active ZOFRAN ODT 4 MG ORAL TABLET DISINTEGRATING 1 po q6hr PRN Nausea ONDANSETRON 73254157641 No Longer Active Rich Rosales MD Active ZOFRAN 4 MG ORAL TABLET 1 tablet every 4 hours ONDANSETRON HCL 95552655382 No Longer Active Rich Rosales MD Activ e MUCINEX 600 MG ORAL TABLET EXTENDED RELEASE 12 HOUR Ta ke 1-2 tablets every 12 hours GUAIFENESIN 36488727266 No Longer Active Rich Rosales MD Active BACTRIM 400-80 MG ORAL TABLET take one po BID SULFAMETHOXAZOLE-TRIMETHOPRIM 04663798183 No Longer Active Abelardo HERNANDEZ Active AZITHROMYCIN 500 MG ORAL TABLET 1 PO q day x 6 days 20 03/02/23 AZITHROMYCIN 98256820378 No Longer Active Tin HERNANDEZ Activ e ZITHROMAX 250 MG ORAL TABLET 2 po today, then 1 po q days 2-5 20 10/03/08 AZITHROMYCIN 87277797505 No Longer Active Arie Casper MD Active ZITHROMAX 250 MG ORAL TABLET 2 po today, then 1 po q days 2-5 20 09/23/25 AZITHROMYCIN 09284968510 No Longer Active Arie Casper MD Active AMOXICILLIN 500 MG ORAL CAPSULE 1 tab by mouth 3 times daily 201 11/24/09 AMOXICILLIN 03130633718 No Longer Active Arie Casper MD Active BACTRIM DS 800-160 MG ORAL TABLET 1 tab by mouth twice daily 201 11/03/14 TRIMETHOPRIM-SULFAMETHOXAZOLE 15294562865 No Longer Active Fozia Casper MD Active AMOXICILLIN 500 MG ORAL TABLET take 1 tab po TID 08/05 AMOXICILLIN 20132869014 No Longer Active Arie Casper MD Acti [...] 4 hours ZOFRAN 4 MG ORAL TABLET 289813 ONDANSETRON HCL Inactive ZOFRAN ODT 4 MG [...] COLD/COUGH DAY/NITE MS 5-2-10-325 MG ORA L [id number] Inactive [facility] TUSSIN COUGH/COLD CF 5-10-100 MG/5ML ORAL LIQUID 2 teasp oons every 4 hours [facility] TUSSIN COUGH/COLD CF 5-10-100 MG/5ML ORAL LI QUID [id number] Inactive IBUPROFEN 800 MG ORAL TABLET take one po Q 8 hours 201 02/01/16 IBUPROFEN 800 MG ORAL TABLET IBUPROFEN Inactive VITAMINS 0.8 MG ORAL TABLET take 1 tab po qday VITAMINS 0.8 MG ORAL TABLET [id number] E-FA Inactive TESSALON PERLES 100 MG ORAL CAPSULE 1 tablet by mouth 3 times da cory TESSALON PERLES 100 MG ORAL CAPSULE 19730630 BENZONATATE Inactive AMOXICILLIN 500 MG ORAL CAPSULE 1 tab by mouth 3 times daily 201 02/21/05 AMOXICILLIN 500 MG ORAL CAPSULE 630248 AMOXICILLIN Inactive GUAIFENESIN-CODEINE 100-10 MG/5ML ORAL SYRUP 2 tsp every 6 hours prn GUAIFENESIN-CODEINE 100-10 MG/5ML ORAL SYRUP 727194 GUAIFENESIN-CODEINE Inactive VICKS DAYQUIL SEVERE COLD/FLU TABLET 1 tab every 6 hours prn 201 02/22/17 VICKS DAYQUIL SEVERE COLD/FLU TABLET PHENYLEPHRI [id number]-HB-UT-APAP TABS Inactive BACTRIM DS 800-160 MG ORAL TABLET 1 twice a day 05/30 BACTRIM DS 800-160 MG ORAL TABLET 479098 SULFAMETHOXAZOLE-TRIMETHOPRIM Inactiv e PROMETHAZINE HCL 25 MG ORAL TABLET 1 four times a day as nee ded for vomiting PROMETHAZINE HCL 25 MG ORAL TABLET 329660 PROMETHAZINE HCL Inactive ZYRTEC ALLERGY 10 MG ORAL CAPSULE 1 po qd ZYRTEC ALLERGY 10 MG ORAL CAPSULE CETIRIZINE HCL Inactive MACROBID 100 MG ORAL CAPSULE 1 cap by mouth twice daily MACROBID 100 MG ORAL CAPSULE 9042569 NITROFURANTOIN MONOHYD MACRO In active LOMOTIL 2.5-0.025 MG ORAL TABLET 1 to 2 four times a day as needed for diarrhea LOMOTIL 2.5-0.025 MG ORAL TABLET 2511149 DIPHENOXYLATE-ATROPINE Inactive CYCLOBENZAPRINE HCL 10 MG ORAL TABLET 1/2 - 1 tablet b y mouth three times daily as needed for muscle spasm/pain CYCLOBEN ZAPRINE HCL 10 MG ORAL TABLET 231205 CYCLOBENZAPRINE HCL Inactive AMOXICILLIN 500 MG ORAL TABLET 2 tabs twice a day for 10 days 20 07/09/11 AMOXICILLIN 500 MG ORAL TABLET 735191 AMOXICILLIN I nactive LOMOTIL 2.5-0.025 MG ORAL TABLET 1 to 2 four times a day as needed for diarrhea LOMOTIL 2.5-0.025 MG ORAL TABLET 8952904 DIPHENOXYLATE-ATROPINE Inactive ZOFRAN 4 MG ORAL TABLET 1 TAB PO Q 6 HRS PRN NAUSEA 20 07/10/15 ZOFRAN 4 MG ORAL TABLET 526794 ONDANSETRON HCL Inactive CITRATE OF MAGNESIA ORAL SOLUTION 1 bottle today for constipatio n CITRATE OF MAGNESIA ORAL SOLUTION 1259738 MAGNESIUM CITR ATE Inactive PROMETHAZINE HCL 12.5 MG ORAL TABLET 1 tablet by mouth every 6 hours as needed for nausea/vomiting PROMETHAZINE HCL 12.5 MG ORA L TABLET 702582 PROMETHAZINE HCL Inactive PREDNISONE 20 MG ORAL TABLET 1 tablet twice daily for 2 days, then 1 tablet once daily for 2 days PREDNISONE 20 MG ORAL TABLET 277200 PREDNISONE Inactive ALPRAZOLAM 0.25 MG ORAL TABLET 1 tablet by mouth every 8 hours as needed for stress ALPRAZOLAM 0.25 MG ORAL TABLET 859778 ALPRA ZOLAM Inactive FLONASE 50 MCG/ACT NASAL SUSPENSION 1 spray each nostr il twice daily for allergies and runny nose until gone FLON ASE 50 MCG/ACT NASAL SUSPENSION 2791170 FLUTICASONE PROPIONATE Inactive PREDNISONE 20 MG ORAL TABLET 1 tablet daily for airway inflammat ion PREDNISONE 20 MG ORAL TABLET 979328 PREDNISONE [facility] NAPROXEN 500 MG ORAL TABLET Take 1 tab BID NAPROXEN 500 MG ORAL TABLET 394698 NAPROXEN Inactive ZOLOFT 50 MG ORAL TABLET 1 tablet by mouth daily 12/08 ZOLOFT 50 MG ORAL TABLET 996045 SERTRALINE HCL Inactive LOMOTIL 2.5-0.025 MG ORAL TABLET 1 tab po four times a day as needed for diarrhea LOMOTIL 2.5-0.025 MG ORAL TABLET 2593824 DIPHENOXYLATE-ATROPINE Inactive CETIRIZINE HCL 10 MG ORAL TABLET 1 po qd PRN Allergies CETIRIZINE HCL 10 MG ORAL TABLET 1617981 CETIRIZINE HCL Inactiv e TUSSIONEX PENNKINETIC ER 10-8 MG/5ML ORAL SUSPENSION E XTENDED RELEASE 5ml po q12hr PRN Cough TUSSIONEX PENNKINETI C ER 10-8 MG/5ML ORAL SUSPENSION EXTENDED RELEASE HYDROCOD POLST-CHLORPHEN POLST I nactive NEXPLANON IMPLANT right arm subcutaneously NEXPLANON IMPLANT ETONOGESTREL IMPL Inactive PROTONIX 40 MG ORAL TABLET DELAYED RELEASE 1 po q a.m. PROTONIX 40 MG ORAL TABLET DELAYED RELEASE 829603 PANTOPRAZOLE SODI UM Inactive CHERATUSSIN AC 100-10 MG/5ML ORAL SYRUP 1 tsp by mouth every 4 hours as needed for cough CHERATUSSIN AC 100-10 MG/5ML ORAL SYRUP 9 61140 GUAIFENESIN-CODEINE Inactive GUAIFENESIN DM 400-20 MG ORAL [...] tid K EFLEX 500 MG ORAL CAPSULE 618511 CEPHALEXIN Inactive DIFLUCAN 100 MG ORAL TABLET 1 tablet by mouth daily, R EPEAT 2ND DOSE IN 7 DAYS IF STILL SYMPTOMATIC DIFLUCAN 100 MG ORAL TABLET 12422 8 FLUCONAZOLE Inactive PROTONIX 40 MG ORAL TABLET DELAYED RELEASE 1 pill by m outh daily, for acid reflux PROTONIX 40 MG ORAL TABLET DELAYED RELEAS E 436245 PANTOPRAZOLE SODIUM Inactive ALPRAZOLAM 0.25 MG ORAL TABLET 1 tablet by mouth twice a day as needed for stress/anxiety ALPRAZOLAM 0.25 MG ORAL TABLET 615025 ALPRAZOLAM Inactive ESCITALOPRAM OXALATE 10 MG ORAL TABLET take 1 tab po qhs for mod ESCITALOPRAM OXALATE 10 MG ORAL TABLET 181343 ESCITALOP JO OXALATE Inactive AMOXICILLIN 500 MG ORAL TABLET take 1 tab po TID 08/05 AMOXICILLIN 500 MG ORAL TABLET 472600 AMOXICILLIN Inactive AMOXICILLIN 500 MG ORAL CAPSULE 1 tab by mouth 3 times daily 201 11/24/09 AMOXICILLIN 500 MG ORAL CAPSULE 675094 AMOXICILLIN Inactive ZITHROMAX 250 MG ORAL TABLET 2 po today, then 1 po q days 2-5 20 09/23/25 ZITHROMAX 250 MG ORAL TABLET 031285 AZITHROMYCIN [facility] ZITHROMAX 250 MG ORAL TABLET 2 po today, then 1 po q days 2-5 20 10/03/08 ZITHROMAX 250 MG ORAL TABLET 192688 AZITHROMYCIN [facility] AZITHROMYCIN 500 MG ORAL TABLET 1 PO q day x 6 days 20 03/02/23 AZITHROMYCIN 500 MG ORAL TABLET 2210517 AZITHROMYCIN Inactive BACTRIM 400-80 MG ORAL TABLET take one po BID BACTRIM 400- 80 MG ORAL TABLET 228324 SULFAMETHOXAZOLE-TRIMETHOPRIM Inactive AZITHROMYCIN 250 MG ORAL TABLET 2 po qd x 1 day, then 1 po q d x 4 days AZITHROMYCIN 250 MG ORAL TABLET 725483 AZITHROMY ALLISON Inactive PREDNISONE 20 MG ORAL TABLET 2 tabs daily for 3 days, 1 tab daily for 3 days, 1/2 tab daily for 2 days PREDNISONE 20 MG ORAL T ABLET 075474 PREDNISONE Inactive ZITHROMAX 250 MG ORAL TABLET 2 po today, then 1 po q days 2-5 20 06/08/16 ZITHROMAX 250 MG ORAL TABLET 387604 AZITHROMYCIN [facility] FLAGYL 500 MG ORAL TABLET 1 tablet by mouth two times daily 2014 FLAGYL 500 MG ORAL TABLET 622941 METRONIDAZOLE Inacti ve AUGMENTIN 875-125 MG ORAL TABLET 1 tab by mouth twice daily with food AUGMENTIN 875-125 MG ORAL TABLET 210670 AMOXICIL ELSA-POT CLAVULANATE Inactive NAPROXEN 500 MG ORAL TABLET one tab PO BID NAPROXEN 500 MG ORAL TABLET 108379 NAPROXEN Inactive PREDNISONE 20 MG ORAL TABLET 2 tabs daily for 3 days, 1 tab daily for 3 days, 1/2 tab daily for 2 days PREDNISONE 20 MG ORAL T ABLET 051001 PREDNISONE Inactive AZITHROMYCIN 250 MG ORAL TABLET 2 po qd x 1 day, then 1 po q d x 4 days AZITHROMYCIN 250 MG ORAL TABLET 461017 AZITHROMY ALLISON Inactive PREDNISONE 20 MG ORAL TABLET 2 tabs daily for 3 days, 1 tab daily for 3 days, 1/2 tab daily for 2 days PREDNISONE 20 MG ORAL T ABLET 590431 PREDNISONE Inactive ZITHROMAX Z-EMIL 250 MG ORAL TABLET 2 today, then 1 daily for 4 d ays ZITHROMAX Z-EMIL 250 MG ORAL TABLET 550149 AZITHROMYCIN Inactive CEFDINIR 300 MG ORAL CAPSULE 1 po BID x 10 days 12/18 CEFDINIR 300 MG ORAL CAPSULE 194716 CEFDINIR Inactive CEFDINIR 300 MG ORAL CAPSULE 1 po BID x 10 days CEFDINIR 300 MG ORAL CAPSULE 244232 CEFDINIR Inactive PREDNISONE 20 MG ORAL TABLET 2 tabs daily for 3 days, 1 tab daily for 3 days, 1/2 tab daily for 2 days PREDNISONE 20 MG ORAL T ABLET 997096 PREDNISONE Inactive BACTRIM DS 800-160 MG ORAL TABLET 1 tab by mouth twice daily 201 05/02/30 BACTRIM DS 800-160 MG ORAL TABLET 281228 TRIMETHOPRIM-SULFAMETHOXAZOLE Inactive ZITHROMAX Z-EMIL 250 MG ORAL TABLET 2 today, then 1 daily for 4 d ays ZITHROMAX Z-EMIL 250 MG ORAL TABLET 996330 AZITHROMYCIN Inactive TAMIFLU 75 MG ORAL CAPSULE 1 po BID x 5 days 0 TAMIFLU 75 MG ORAL CAPSULE 626994 OSELTAMIVIR PHOSPHATE Inactive CEFDINIR 300 MG ORAL CAPSULE 1 po BID x 10 days 201801/03 CEFDINIR 300 MG ORAL CAPSULE 873646 CEFDINIR Inactive ZITHROMAX Z-EMIL 250 MG TABS Take two tablets today and then 1 tablet daily for 4 days ZITHROMAX Z-EMIL 250 MG TABS 056899 AZITHROM YCIN Inactive AMOXICILLIN 875 MG ORAL TABLET 1 tab by mouth twice daily AMOXICILLIN 875 MG ORAL TABLET 567768 AMOXICILLIN Inactive Advance Directives Directive Description Start [...] 11 .0-15.0 platelet count 280 THOUSAND/UL 10*3/mm3 698-338 2393/02/18 mean platelet volume 11.6 fL 7.5-12.5 Lab [...] 0.2 Encounters Code Encounter Date Provider Facility [facility]-07337 [id number] Vst-Est Level IV 13:45:[address] Tali Devi PA-C [facility]-25746 [id number] Vst-Est Level III 09:41:31 CDT Arie Casper MD [facility]-54867 [id number] Vst-Est Level III 18:20:11 CDT Me robin [facility], [id number] Vst-Est Level III 17:21:41 CDT [facility]07650 [id number] Vst-Est Level IV 13:30:22 C NIC Casper MD [facility]-12910 Level 4 Est. Patient 13:05:26 CDT Myrna maldonado MD [facility]-69154 [id number] Vst-Est Level IV 20:50:21 C NIC Casper MD [facility]-38208 Level 3 Est. Patient 11:49:34 MICA MINER Jessica boyd [facility] CPT-24291 Level 3 Est. Patient 14:55:50 MICA MINER Jose Zhong MD [facility] CPT-48315 Level 3 Est. Patient 10:21:41 MICA MINER Arie mcqueen MD [facility] CPT-79499 Level 3 Est. Patient 11:35:15 MICA MINER Arie mcqueen MD [facility] CPT-01156 Level 3 Est. Patient 15:40:28 CDT Brii Are ll [facility] CPT-19161 Level 3 Est. Patient 16:40:36 CDT Arie mcqueen MD [facility] CPT-43771 Level 4 Est. Patient 15:29:22 MICA MINER Arie mcqueen MD [facility] CPT-54242 Level 3 Est. Patient 15:18:16 MICA MINER Jono black [facility] CPT-62692 Level 4 Est. Patient 12:08:40 MICA MINER Brii Are ll [facility] CPT-54365 Level 3 Est. Patient 09:24:42 CDT Brii Are ll [facility] CPT-32283 Level 3 Est. Patient 09:12:56 CDT Arie mcqueen MD [facility] CPT-49801 Level 3 Est. Patient 16:40:54 CDT Jose Zhong MD [facility] CPT-99354 Level 2 Est. Patient 13:01:13 CDT Brii Are ll [facility] CPT-93742 Level 3 Est. Patient 11:55:30 MICA MINER Jono black [facility] CPT-66740 Level 3 Est. Patient 09:52:36 MICA MINER Brii Are ll [facility] CPT-62810 Level 3 Est. Patient 16:25:33 MICA MINER Rich Rosales MD [facility] CPT-02698 Level 3 Est. Patient 20:33:55 CDT Arie mcqueen MD [facility] CPT-98620 Level 3 Est. Patient 14:18:20 CDT Rich Rosales MD [facility] CPT-87871 Level 4 Est. Patient 09:34:31 CDT Arie mcqueen MD [facility] CPT-27247 Level 3 Est. Patient 09:08:55 MICA MINER Liliana vincent MD PhD [facility] CPT-12202 Level 3 Est. Patient 16:44:07 MICA MINER Arie mcqueen MD [facility] CPT-82542 Level 3 Est. Patient 10:44:27 CDT Arie mcqueen MD [facility] CPT-78401 Level 3 Est. Patient 08:55:41 CDT Jose Zhong MD [facility] CPT-16201 Level 3 Est. Patient 18:37:31 CDT Liliana vincent MD PhD [facility] CPT-47318 Level 3 Est. Patient 14:28:23 CDT Abelardo HERNANDEZ [facility] CPT-27545 Level 3 Est. Patient 15:18:13 MICA MINER Arie mcqueen MD [facility] CPT-57325 Level 3 Est. Patient 10:11:29 MICA MINER Arie mcqueen MD [facility] CPT-48385 Level 3 Est. Patient 10:55:57 MICA MINER Jono black DO [facility] CPT-05267 Level 3 Est. Patient 17:29:05 CDT Arie mcqueen MD [facility] Procedures Code Procedure Name Date Entry Date Standard Desc ription CPT-66428 Sono OB transvag XRAY USE ONLY 17:11:12 CS T CPT-35919 UHCG Urine - MARC ONLY 12:13:59 MICA MINER 12/11 CPT-06918 Spec Collection and Handling Fee 12:13:[address] CPT-02994 Visit 12:13:59 MICA MINER CPT-54898 First Vx - Ix admin via ID I M or jet injects without counseling by physician 13:00:15 MICA MINER CPT-08617 Flulaval Intramuscular Injectable 13:00:15 MICA MINER CPT-25806 Urine Dip (Floor Use Only) 12:20:20 MICA MINER 201 06/03/24 CPT-87573 Sono Soft Tissue Head and Neck - XRAY US E ONLY 17:10:14 CDT CPT-84686 Ear Wash with irrigation 17:21:41 CDT 07/04 CPT-80615 Nexplanon Removal 15:40:28 CDT CPT-18177 Sono transvag pelvis non OB uterus ovari es cervix - XRAY USE ONLY 08:58:14 MICA MINER CPT-83553 UA w micro - LAB USE ONLY 16:04:56 MICA MINER 2015 CPT-76507 Wet Prep/GEN - LAB USE ONLY 16:04:56 MICA MINER 20 08/10/29 CPT-33124 First Vx - Ix admin via ID I M or jet injects without counseling by physician 16:57:10 CDT CPT-68803 Fluzone Preservative Free Intramuscular Suspension 16:57:10 CDT CPT-J0696 Rocephin 1000 mg (Ceftriaxone) 11:49:23 CDT CPT-J1040 Depo Medrol 80 mg (Methyl Prednisolone A cetate) 11:49:23 CDT CPT-J1100 Decadron 8mg (Dexamethasone) 11:49:23 CDT 2 CPT-31617 Abx/Therapy Injection 11:49:23 CDT CPT-92047 Abx/Therapy Injection 11:49:23 CDT CPT-42238 Abd compl w upright 09:07:26 MICA MINER CPT-19935 Ear Wash 16:12:47 MICA MINER CPT-OV Office Visit 11:12:01 CDT CPT-OV Office Visit 15:30:23 CDT CPT-29508 Sono pelvis non OB uterus ovaries cervix 15:50:44 CDT CPT-20793 Hand comp min 3V 16:42:32 CDT CPT-66021 Abd compl w upright 12:17:01 CDT CPT-41479 Nexplanon Placement 15:07:39 MICA MINER CPT-32395 Removal of IUD 15:07:39 MICA MINER CPT-16585 TB Tubersol 12:09:32 CDT CPT-52866 TB Tubersol 13:55:43 CDT
--- OUTSIDE RECORDS SUMMARY | 2020-03-03 06:58 | XMS REPORT | Clinical Summary ---
Author Author Admin, Diamante Marcelo Organization [facility] Address Unknown Phone Unavailable Allergies, Adverse Reactions, Alerts Allergy Name Reaction Description Start Date Severity Status Pr ovider DILAUDID Severe Active Brii MARROQUIN RN Conditions or Problems Problem Name Problem Code Onset Date Status Entry Date Provider Comment Standard Description Annotate FH BREAST CANCER V16.3 Resolved Jose Zhong MD Family history of malignant neoplasm of breast FH COLON CANCER V16.0 Resolved Jsoe Zhong MD Family history of [...] implantable subdermal contraceptiv e Active Brii Russ PATIENT APPOINTMENT COORDINATOR Vaginal bleeding 623.8 Active Arie Casper MD Other specified noninflammatory disorders of vagina Influenza like illness 487.1 Active Jose Mcwilliams MD Influenza with other respiratory manifestations Sinusitis 473.9 Active Jessica Heaton PATIENT APPOINTMENT COORDINATOR Unspecified sinusitis (chronic) Other mixed anxiety 300.00 [...] Cerumen impaction, bilateral 380.4 Active Brii Russ PATIENT APPOINTMENT COORDINATOR Impacted cerumen Tonsillar enlargement 474.11 Active Brii Yepezboris PATIENT APPOINTMENT COORDINATOR Hypertrophy of tonsils alone Influenza Vaccination for Prophylaxis V04.81 Inactive Brii Russ PATIENT APPOINTMENT COORDINATOR Need for prophylactic vaccin ation and inoculation against influenza Submandibular lymph node 785.6 Active Brii escalante PATIENT APPOINTMENT COORDINATOR Enlargement of lymph nodes Influenza Vaccination for [...] 3-4 times per day 12/11 PYRIDOXINE HCL 83459361741 Active Myrna Roberto MD Active UNISOM SLEEPTABS 25 MG ORAL TABLET one tab PO qhs DOXYLAMINE SUCCINATE (SLEEP) 71191909177 Active Myrna Roberto MD Active TYLENOL 325 MG ORAL CAPSULE PRN ACETAMINOPHEN 000 08572572 Active Brii Pacheco Active ESCITALOPRAM OXALATE 10 MG ORAL TABLET take 1 tab po qhs for mod ESCITALOPRAM OXALATE 58600874353 No Longer Active Brii Pacheco Active ALPRAZOLAM 0.25 MG ORAL TABLET 1 tablet by mouth twice a day as needed for stress/anxiety ALPRAZOLAM 05557895245 No Longer Active Brii Pacheco Active PROTONIX 40 MG ORAL TABLET DELAYED RELEASE 1 pill by m outh daily, for acid reflux PANTOPRAZOLE SODIUM 91351893849 No Longer Activ e Brii Chewna Active DIFLUCAN 100 MG ORAL TABLET 1 tablet by mouth daily, R EPEAT 2ND DOSE IN 7 DAYS IF STILL SYMPTOMATIC FLUCONAZOLE 97850654198 No Long er Active Nilam Weber Active KEFLEX 500 MG ORAL CAPSULE 1 po tid CEPHALEXI N 26657037210 No Longer Active Tali Devi PA-C Active CONCEPT DHA 53.5-38-1 MG ORAL CAPSULE 1 tablet daily [id number]-[id number] 3 14747878453 Active Oxana Souza LPN Active AMOXICILLIN 875 MG ORAL TABLET 1 tab by mouth twice daily 1 AMOXICILLIN 67716796759 No Longer Active Brii Russ APRN Active TUSSIONEX PENNKINETIC ER 10-8 MG/5ML ORAL SUSPENSION E XTENDED RELEASE 5ml po q12hr PRN Cough HYDROCOD POLST-CHLORPHEN POLST 5 7410201861 No Longer Active Myrna Roberto MD Active ZITHROMAX Z-EMIL 250 MG TABS Take two tablets today and then 1 tablet daily for 4 days AZITHROMYCIN 52689719620 No Longer Active Flaco Rosales MD Active GUAIFENESIN DM 400-20 MG ORAL TABLET 1 pill by mouth t wice daily, if needed for cough DEXTROMETHORPHAN-GUAIFENESIN 67345911110 No Longer Active Rich Rosales MD Active CEFDINIR 300 MG ORAL CAPSULE 1 po BID x 10 days CEFDINIR 35715367399 No Longer Active Jessica Heaton APRN Active CHERATUSSIN AC 100-10 MG/5ML ORAL SYRUP 1 tsp by mouth every 4 hours as needed for cough GUAIFENESIN-CODEINE 67030270675 No Longe r Active Jessica Heaton APRN Active TAMIFLU 75 MG ORAL CAPSULE 1 po BID x 5 days 0 OSELTAMIVIR PHOSPHATE 31847700260 No Longer Active Jose Zhong MD Activ e ZITHROMAX Z-EMIL 250 MG ORAL TABLET 2 today, then 1 daily for 4 d ays AZITHROMYCIN 24911661302 No Longer Active Arie Casper MD Active PROTONIX 40 MG ORAL TABLET DELAYED RELEASE 1 po q a.m. PANTOPRAZOLE SODIUM 49295011480 No Longer Active Arie Casper MD Active BACTRIM DS 800-160 MG ORAL TABLET 1 tab by mouth twice daily 201 05/02/30 TRIMETHOPRIM-SULFAMETHOXAZOLE 04937089437 No Longer Active R uth Ty, RMA Active NEXPLANON IMPLANT right arm subcutaneously ETONOGESTREL IMPL 41037724395 No Longer Active Brii Russ APRN Active TUSSIONEX PENNKINETIC ER 10-8 MG/5ML ORAL SUSPENSION E XTENDED RELEASE 5ml po q12hr PRN Cough HYDROCOD POLST-CHLORPHEN POLST 5 4078000596 No Longer Active Brii Russ APRN Active CETIRIZINE HCL 10 MG ORAL TABLET 1 po qd PRN Allergies CETIRIZINE HCL 27509416969 No Longer Active Brii Russ APRN Activ e PREDNISONE 20 MG ORAL TABLET 2 tabs daily for 3 days, 1 tab daily for 3 days, 1/2 tab daily for 2 days PREDNISONE 80845641713 No Longer Active Arie Casper MD Active LOMOTIL 2.5-0.025 MG ORAL TABLET 1 tab po four times a day as needed for diarrhea DIPHENOXYLATE-ATROPINE 36376308598 No Lo nger Active Arie Casper MD Active ZOLOFT 50 MG ORAL TABLET 1 tablet by mouth daily 12/08 SERTRALINE HCL 04614500665 No Longer Active Arie Casper MD Ac tive NAPROXEN 500 MG ORAL TABLET Take 1 tab BID NAPR OXEN 84661341563 No Longer Active Arie Casper MD Active CEFDINIR 300 MG ORAL CAPSULE 1 po BID x 10 days CEFDINIR 47274207061 No Longer Active Brii Russ APRN Active PREDNISONE 20 MG ORAL TABLET 1 tablet daily for airway inflammat ion PREDNISONE 07800764810 No Longer Active rBii Russ APRN A ctive CEFDINIR 300 MG ORAL CAPSULE 1 po BID x 10 days CEFDINIR 11727193796 No Longer Active Jono Gagnon DO Active FLONASE 50 MCG/ACT NASAL SUSPENSION 1 spray each nostr il twice daily for allergies and runny nose until gone FLUT ICASONE PROPIONATE 68742503349 No Longer Active Jono Gagnon DO Active ALPRAZOLAM 0.25 MG ORAL TABLET 1 tablet by mouth every 8 hours as needed for stress ALPRAZOLAM 74072277818 No Longer Active Jono Gagnon DO Active ZITHROMAX Z-EMIL 250 MG ORAL TABLET 2 today, then 1 daily for 4 d ays AZITHROMYCIN 77346885345 No Longer Active rAie Casper MD Active PREDNISONE 20 MG ORAL TABLET 2 tabs daily for 3 days, 1 tab daily for 3 days, 1/2 tab daily for 2 days PREDNISONE 27274956845 No Longer Active Brii Russ APRN Active PREDNISONE 20 MG ORAL TABLET 1 tablet twice daily for 2 days, then 1 tablet once daily for 2 days PREDNISONE 72250690540 No Longer Active Brii Russ APRN Active PROMETHAZINE HCL 12.5 MG ORAL TABLET 1 tablet by mouth every 6 hours as needed for nausea/vomiting PROMETHAZINE HCL 98481657884 No L onger Active Jono Gagnon DO Active CITRATE OF MAGNESIA ORAL SOLUTION 1 bottle today for constipatio n MAGNESIUM CITRATE 16128927739 No Longer Active Jono Gagnon DO Active ZOFRAN 4 MG ORAL TABLET 1 TAB PO Q 6 HRS PRN NAUSEA 20 07/10/15 ONDANSETRON HCL 80274584545 No Longer Active Brii Russ APRN Acti ve LOMOTIL 2.5-0.025 MG ORAL TABLET 1 to 2 four times a day as needed for diarrhea DIPHENOXYLATE-ATROPINE 35457708803 No Longer Active January Russ APRN Active AMOXICILLIN 500 MG ORAL TABLET 2 tabs twice a day for 10 days 20 07/09/11 AMOXICILLIN 54905006125 No Longer Active Brii Russ APRN Active CYCLOBENZAPRINE HCL 10 MG ORAL TABLET 1/2 - 1 tablet b y mouth three times daily as needed for muscle spasm/pain CYCLOBENZAPRINE HCL 16987798842 No Longer Active Arie Casper MD Active LOMOTIL 2.5-0.025 MG ORAL TABLET 1 to 2 four times a day as needed for diarrhea DIPHENOXYLATE-ATROPINE 40162056347 No Longer Active Fozia Casper MD Active MACROBID 100 MG ORAL CAPSULE 1 cap by mouth twice daily NITROFURANTOIN MONOHYD MACRO 20820086997 No Longer Active Arie Casper MD Active ZYRTEC ALLERGY 10 MG ORAL CAPSULE 1 po qd CE TIRIZINE HCL 32141183925 No Longer Active Arie Casper MD Active AZITHROMYCIN 250 MG ORAL TABLET 2 po qd x 1 day, then 1 po q d x 4 days AZITHROMYCIN 96233124031 No Longer Active Jillina Fra naomi PATIENT APPOINTMENT COORDINATOR Active PREDNISONE 20 MG ORAL TABLET 2 tabs daily for 3 days, 1 tab daily for 3 days, 1/2 tab daily for 2 days PREDNISONE 67781706590 No Longer Active Jillina Frazell PATIENT APPOINTMENT COORDINATOR Active PROMETHAZINE HCL 25 MG ORAL TABLET 1 four times a day as nee ded for vomiting PROMETHAZINE HCL 63118693859 No Longer Active Myrna Roberto MD Active BACTRIM DS 800-160 MG ORAL TABLET 1 twice a day 05/30 SULFAMETHOXAZOLE-TRIMETHOPRIM 74911302340 No Longer Active Myrna Roberto MD Active VICKS DAYQUIL SEVERE COLD/FLU TABLET 1 tab every 6 hours prn 201 02/22/17 [id number]-APAP TABS 90905797760 No Longer Active Chris Roberto MD Active GUAIFENESIN-CODEINE 100-10 MG/5ML ORAL SYRUP 2 tsp every 6 hours prn GUAIFENESIN-CODEINE 72839413372 No Longer Active Myrna Roberto MD Active NAPROXEN 500 MG ORAL TABLET one tab PO BID NAPR OXEN 02129690765 No Longer Active Myrna Roberto MD Active AUGMENTIN 875-125 MG ORAL TABLET 1 tab by mouth twice daily with food AMOXICILLIN-POT CLAVULANATE 32957588406 No Longer Act zaid Liliana Estrada MD PhD Active AMOXICILLIN 500 MG ORAL CAPSULE 1 tab by mouth 3 times daily 201 02/21/05 AMOXICILLIN 95285260008 No Longer Active Liliana Estrada MD PhD Active TESSALON PERLES 100 MG ORAL CAPSULE 1 tablet by mouth 3 times da cory BENZONATATE 77459397707 No Longer Active Liliana Estrada MD PhD Active FLAGYL 500 MG ORAL TABLET 1 tablet by mouth two times daily 2014 METRONIDAZOLE 55922625903 No Longer Active Nilam ida Ac tive ZITHROMAX 250 MG ORAL TABLET 2 po today, then 1 po q days 2-5 20 06/08/16 AZITHROMYCIN 28465472230 No Longer Active Arie Casper MD Active VITAMINS 0.8 MG ORAL TABLET take 1 tab po qday [id number] 37012205955 No Longer Active Arie Casper MD Active IBUPROFEN 800 MG ORAL TABLET take one po Q 8 hours 201 02/01/16 IBUPROFEN 02905221873 No Longer Active Arie Casper MD Acti ve [facility] TUSSIN COUGH/COLD CF 5-10-100 MG/5ML ORAL LIQUID 2 teasp oons every 4 hours [id number] 38618154124 No Longer Active Blaine Casper MD Active COMTREX COLD/COUGH DAY/NITE MS 5-2-10-325 MG ORAL 2 caps deja ry 4 hours [id number]-[id number]-APAP 42446157266 No Longer Active Landon Casper MD Active CHLORASEPTIC MAX SORE THROAT 15-10 MG MOUTH/THROAT LOZENGE 1 every 2 hours prn BENZOCAINE-MENTHOL 59489448528 No Longer Active Arie Casper MD Active PREDNISONE 20 MG ORAL TABLET 2 tabs daily for 3 days, 1 tab daily for 3 days, 1/2 tab daily for 2 days PREDNISONE 57144079893 No Longer Active Jose Zhong MD Active AZITHROMYCIN 250 MG ORAL TABLET 2 po qd x 1 day, then 1 po q d x 4 days AZITHROMYCIN 01848926003 No Longer Active Jose Mcwilliams MD Active ZOFRAN ODT 4 MG ORAL TABLET DISINTEGRATING 1 po q6hr PRN Nausea ONDANSETRON 92727909016 No Longer Active Rich Rosales MD Active ZOFRAN 4 MG ORAL TABLET 1 tablet every 4 hours ONDANSETRON HCL 09346987338 No Longer Active Rich Rosales MD Activ e MUCINEX 600 MG ORAL TABLET EXTENDED RELEASE 12 HOUR Ta ke 1-2 tablets every 12 hours GUAIFENESIN 07925641342 No Longer Active Rich Rosales MD Active BACTRIM 400-80 MG ORAL TABLET take one po BID SULFAMETHOXAZOLE-TRIMETHOPRIM 44644790464 No Longer Active Abelardo HERNANDEZ Active AZITHROMYCIN 500 MG ORAL TABLET 1 PO q day x 6 days 20 03/02/23 AZITHROMYCIN 14478070276 No Longer Active Tin HERNANDEZ Activ e ZITHROMAX 250 MG ORAL TABLET 2 po today, then 1 po q days 2-5 20 10/03/08 AZITHROMYCIN 13366821768 No Longer Active Arie Casper MD Active ZITHROMAX 250 MG ORAL TABLET 2 po today, then 1 po q days 2-5 20 09/23/25 AZITHROMYCIN 40195551243 No Longer Active Arie Casper MD Active AMOXICILLIN 500 MG ORAL CAPSULE 1 tab by mouth 3 times daily 201 11/24/09 AMOXICILLIN 58645816033 No Longer Active Arie Casper MD Active BACTRIM DS 800-160 MG ORAL TABLET 1 tab by mouth twice daily 201 11/03/14 TRIMETHOPRIM-SULFAMETHOXAZOLE 29413713252 No Longer Active Fozia Casper MD Active AMOXICILLIN 500 MG ORAL TABLET take 1 tab po TID 08/05 AMOXICILLIN 61582112121 No Longer Active Arie Casper MD Acti [...] 4 hours ZOFRAN 4 MG ORAL TABLET 973434 ONDANSETRON HCL Inactive ZOFRAN ODT 4 MG [...] COLD/COUGH DAY/NITE MS 5-2-10-325 MG ORA L [id number] Inactive [facility] TUSSIN COUGH/COLD CF 5-10-100 MG/5ML ORAL LIQUID 2 teasp oons every 4 hours [facility] TUSSIN COUGH/COLD CF 5-10-100 MG/5ML ORAL LI QUID [id number] Inactive IBUPROFEN 800 MG ORAL TABLET take one po Q 8 hours 201 02/01/16 IBUPROFEN 800 MG ORAL TABLET IBUPROFEN Inactive VITAMINS 0.8 MG ORAL TABLET take 1 tab po qday VITAMINS 0.8 MG ORAL TABLET [id number] E-FA Inactive TESSALON PERLES 100 MG ORAL CAPSULE 1 tablet by mouth 3 times da cory TESSALON PERLES 100 MG ORAL CAPSULE 19730630 BENZONATATE Inactive AMOXICILLIN 500 MG ORAL CAPSULE 1 tab by mouth 3 times daily 201 02/21/05 AMOXICILLIN 500 MG ORAL CAPSULE 717482 AMOXICILLIN Inactive GUAIFENESIN-CODEINE 100-10 MG/5ML ORAL SYRUP 2 tsp every 6 hours prn GUAIFENESIN-CODEINE 100-10 MG/5ML ORAL SYRUP 313366 GUAIFENESIN-CODEINE Inactive VICKS DAYQUIL SEVERE COLD/FLU TABLET 1 tab every 6 hours prn 201 02/22/17 VICKS DAYQUIL SEVERE COLD/FLU TABLET PHENYLEPHRI GV-IA-AZ-APAP TABS Inactive BACTRIM DS 800-160 MG ORAL TABLET 1 twice a day 05/30 BACTRIM DS 800-160 MG ORAL TABLET 901506 SULFAMETHOXAZOLE-TRIMETHOPRIM Inactiv e PROMETHAZINE HCL 25 MG ORAL TABLET 1 four times a day as nee ded for vomiting PROMETHAZINE HCL 25 MG ORAL TABLET 650858 PROMETHAZINE HCL Inactive ZYRTEC ALLERGY 10 MG ORAL CAPSULE 1 po qd ZYRTEC ALLERGY 10 MG ORAL CAPSULE CETIRIZINE HCL Inactive MACROBID 100 MG ORAL CAPSULE 1 cap by mouth twice daily MACROBID 100 MG ORAL CAPSULE 0347024 NITROFURANTOIN MONOHYD MACRO In active LOMOTIL 2.5-0.025 MG ORAL TABLET 1 to 2 four times a day as needed for diarrhea LOMOTIL 2.5-0.025 MG ORAL TABLET 7517486 DIPHENOXYLATE-ATROPINE Inactive CYCLOBENZAPRINE HCL 10 MG ORAL TABLET 1/2 - 1 tablet b y mouth three times daily as needed for muscle spasm/pain CYCLOBEN ZAPRINE HCL 10 MG ORAL TABLET 927083 CYCLOBENZAPRINE HCL Inactive AMOXICILLIN 500 MG ORAL TABLET 2 tabs twice a day for 10 days 20 07/09/11 AMOXICILLIN 500 MG ORAL TABLET 367709 AMOXICILLIN I nactive LOMOTIL 2.5-0.025 MG ORAL TABLET 1 to 2 four times a day as needed for diarrhea LOMOTIL 2.5-0.025 MG ORAL TABLET 5300984 DIPHENOXYLATE-ATROPINE Inactive ZOFRAN 4 MG ORAL TABLET 1 TAB PO Q 6 HRS PRN NAUSEA 20 07/10/15 ZOFRAN 4 MG ORAL TABLET 064561 ONDANSETRON HCL Inactive CITRATE OF MAGNESIA ORAL SOLUTION 1 bottle today for constipatio n CITRATE OF MAGNESIA ORAL SOLUTION 6503276 MAGNESIUM CITR ATE Inactive PROMETHAZINE HCL 12.5 MG ORAL TABLET 1 tablet by mouth every 6 hours as needed for nausea/vomiting PROMETHAZINE HCL 12.5 MG ORA L TABLET 416539 PROMETHAZINE HCL Inactive PREDNISONE 20 MG ORAL TABLET 1 tablet twice daily for 2 days, then 1 tablet once daily for 2 days PREDNISONE 20 MG ORAL TABLET 268623 PREDNISONE Inactive ALPRAZOLAM 0.25 MG ORAL TABLET 1 tablet by mouth every 8 hours as needed for stress ALPRAZOLAM 0.25 MG ORAL TABLET 465846 ALPRA ZOLAM Inactive FLONASE 50 MCG/ACT NASAL SUSPENSION 1 spray each nostr il twice daily for allergies and runny nose until gone FLON ASE 50 MCG/ACT NASAL SUSPENSION 4161549 FLUTICASONE PROPIONATE Inactive PREDNISONE 20 MG ORAL TABLET 1 tablet daily for airway inflammat ion PREDNISONE 20 MG ORAL TABLET 317934 PREDNISONE Bonaire ctive NAPROXEN 500 MG ORAL TABLET Take 1 tab BID NAPROXEN 500 MG ORAL TABLET 569120 NAPROXEN Inactive ZOLOFT 50 MG ORAL TABLET 1 tablet by mouth daily 12/08 ZOLOFT 50 MG ORAL TABLET 327436 SERTRALINE HCL Inactive LOMOTIL 2.5-0.025 MG ORAL TABLET 1 tab po four times a day as needed for diarrhea LOMOTIL 2.5-0.025 MG ORAL TABLET 3673123 DIPHENOXYLATE-ATROPINE Inactive CETIRIZINE HCL 10 MG ORAL TABLET 1 po qd PRN Allergies CETIRIZINE HCL 10 MG ORAL TABLET 5409990 CETIRIZINE HCL Inactiv e TUSSIONEX PENNKINETIC ER 10-8 MG/5ML ORAL SUSPENSION E XTENDED RELEASE 5ml po q12hr PRN Cough TUSSIONEX PENNKINETI C ER 10-8 MG/5ML ORAL SUSPENSION EXTENDED RELEASE HYDROCOD POLST-CHLORPHEN POLST I nactive NEXPLANON IMPLANT right arm subcutaneously NEXPLANON IMPLANT ETONOGESTREL IMPL Inactive PROTONIX 40 MG ORAL TABLET DELAYED RELEASE 1 po q a.m. PROTONIX 40 MG ORAL TABLET DELAYED RELEASE 512558 PANTOPRAZOLE SODI UM Inactive CHERATUSSIN AC 100-10 MG/5ML ORAL SYRUP 1 tsp by mouth every 4 hours as needed for cough CHERATUSSIN AC 100-10 MG/5ML ORAL SYRUP 9 95831 GUAIFENESIN-CODEINE Inactive GUAIFENESIN DM 400-20 MG ORAL [...] tid K EFLEX 500 MG ORAL CAPSULE 897845 CEPHALEXIN Inactive DIFLUCAN 100 MG ORAL TABLET 1 tablet by mouth daily, R EPEAT 2ND DOSE IN 7 DAYS IF STILL SYMPTOMATIC DIFLUCAN 100 MG ORAL TABLET 34745 8 FLUCONAZOLE Inactive PROTONIX 40 MG ORAL TABLET DELAYED RELEASE 1 pill by m outh daily, for acid reflux PROTONIX 40 MG ORAL TABLET DELAYED RELEAS E 176040 PANTOPRAZOLE SODIUM Inactive ALPRAZOLAM 0.25 MG ORAL TABLET 1 tablet by mouth twice a day as needed for stress/anxiety ALPRAZOLAM 0.25 MG ORAL TABLET 006409 ALPRAZOLAM Inactive ESCITALOPRAM OXALATE 10 MG ORAL TABLET take 1 tab po qhs for mod ESCITALOPRAM OXALATE 10 MG ORAL TABLET 896860 ESCITALOP JO OXALATE Inactive AMOXICILLIN 500 MG ORAL TABLET take 1 tab po TID 08/05 AMOXICILLIN 500 MG ORAL TABLET 449234 AMOXICILLIN Inactive AMOXICILLIN 500 MG ORAL CAPSULE 1 tab by mouth 3 times daily 201 11/24/09 AMOXICILLIN 500 MG ORAL CAPSULE 090263 AMOXICILLIN Inactive ZITHROMAX 250 MG ORAL TABLET 2 po today, then 1 po q days 2-5 20 09/23/25 ZITHROMAX 250 MG ORAL TABLET 867051 AZITHROMYCIN Bonaire ctive ZITHROMAX 250 MG ORAL TABLET 2 po today, then 1 po q days 2-5 20 10/03/08 ZITHROMAX 250 MG ORAL TABLET 805912 AZITHROMYCIN Bonaire ctive AZITHROMYCIN 500 MG ORAL TABLET 1 PO q day x 6 days 20 03/02/23 AZITHROMYCIN 500 MG ORAL TABLET 5542079 AZITHROMYCIN Inactive BACTRIM 400-80 MG ORAL TABLET take one po BID BACTRIM 400- 80 MG ORAL TABLET 501889 SULFAMETHOXAZOLE-TRIMETHOPRIM Inactive AZITHROMYCIN 250 MG ORAL TABLET 2 po qd x 1 day, then 1 po q d x 4 days AZITHROMYCIN 250 MG ORAL TABLET 875662 AZITHROMY ALLISON Inactive PREDNISONE 20 MG ORAL TABLET 2 tabs daily for 3 days, 1 tab daily for 3 days, 1/2 tab daily for 2 days PREDNISONE 20 MG ORAL T ABLET 715271 PREDNISONE Inactive ZITHROMAX 250 MG ORAL TABLET 2 po today, then 1 po q days 2-5 20 06/08/16 ZITHROMAX 250 MG ORAL TABLET 921674 AZITHROMYCIN Bonaire ctive FLAGYL 500 MG ORAL TABLET 1 tablet by mouth two times daily 2014 FLAGYL 500 MG ORAL TABLET 799756 METRONIDAZOLE Inacti ve AUGMENTIN 875-125 MG ORAL TABLET 1 tab by mouth twice daily with food AUGMENTIN 875-125 MG ORAL TABLET 508956 AMOXICIL ELSA-POT CLAVULANATE Inactive NAPROXEN 500 MG ORAL TABLET one tab PO BID NAPROXEN 500 MG ORAL TABLET 393485 NAPROXEN Inactive PREDNISONE 20 MG ORAL TABLET 2 tabs daily for 3 days, 1 tab daily for 3 days, 1/2 tab daily for 2 days PREDNISONE 20 MG ORAL T ABLET 174494 PREDNISONE Inactive AZITHROMYCIN 250 MG ORAL TABLET 2 po qd x 1 day, then 1 po q d x 4 days AZITHROMYCIN 250 MG ORAL TABLET 513508 AZITHROMY ALLISON Inactive PREDNISONE 20 MG ORAL TABLET 2 tabs daily for 3 days, 1 tab daily for 3 days, 1/2 tab daily for 2 days PREDNISONE 20 MG ORAL T ABLET 923009 PREDNISONE Inactive ZITHROMAX Z-EMIL 250 MG ORAL TABLET 2 today, then 1 daily for 4 d ays ZITHROMAX Z-EMIL 250 MG ORAL TABLET 011457 AZITHROMYCIN Inactive CEFDINIR 300 MG ORAL CAPSULE 1 po BID x 10 days 12/18 CEFDINIR 300 MG ORAL CAPSULE 030871 CEFDINIR Inactive CEFDINIR 300 MG ORAL CAPSULE 1 po BID x 10 days CEFDINIR 300 MG ORAL CAPSULE 706144 CEFDINIR Inactive PREDNISONE 20 MG ORAL TABLET 2 tabs daily for 3 days, 1 tab daily for 3 days, 1/2 tab daily for 2 days PREDNISONE 20 MG ORAL T ABLET 402360 PREDNISONE Inactive BACTRIM DS 800-160 MG ORAL TABLET 1 tab by mouth twice daily 201 05/02/30 BACTRIM DS 800-160 MG ORAL TABLET 730307 TRIMETHOPRIM-SULFAMETHOXAZOLE Inactive ZITHROMAX Z-EMIL 250 MG ORAL TABLET 2 today, then 1 daily for 4 d ays ZITHROMAX Z-EMIL 250 MG ORAL TABLET 287922 AZITHROMYCIN Inactive TAMIFLU 75 MG ORAL CAPSULE 1 po BID x 5 days 0 TAMIFLU 75 MG ORAL CAPSULE 040632 OSELTAMIVIR PHOSPHATE Inactive CEFDINIR 300 MG ORAL CAPSULE 1 po BID x 10 days 201801/03 CEFDINIR 300 MG ORAL CAPSULE 540046 CEFDINIR Inactive ZITHROMAX Z-EMIL 250 MG TABS Take two tablets today and then 1 tablet daily for 4 days ZITHROMAX Z-EMIL 250 MG TABS 704990 AZITHROM YCIN Inactive AMOXICILLIN 875 MG ORAL TABLET 1 tab by mouth twice daily AMOXICILLIN 875 MG ORAL TABLET 635557 AMOXICILLIN Inactive Advance Directives Directive Description Start [...] DTaP oral polio vaccine (OPV) #4 Historical ze ovirus vaccine, unspecified formulation MMR (measles, mumps, [...] 11 .0-15.0 platelet count 280 THOUSAND/UL 10*3/mm3 077-475 2780/02/18 mean platelet volume 11.6 fL 7.5-12.5 Lab [...] 0.2 Encounters Code Encounter Date Provider Facility [facility]-05354 [id number] Vst-Est Level IV 13:45:[address] Tali Devi PA-C [facility]-44998 52481-Bol Vst-Est Level III 09:41:31 CDT Arie Casper MD [facility]-52094 53991-Zeb Vst-Est Level III 18:20:11 CDT Me robin [facility]-53040 72523-Vxs Vst-Est Level III 17:21:41 CDT [facility]67115 57280-Ubn Vst-Est Level IV 13:30:22 C NIC Casper MD [facility]-40074 Level 4 Est. Patient 13:05:26 CDT Myrna maldonado MD [facility]-63105 96685-Noh Vst-Est Level IV 20:50:21 C NIC Casper MD [facility]-60946 Level 3 Est. Patient 11:49:34 ARCHIVIST MILITARY HISTORY Jessica boyd [facility] CPT-85739 Level 3 Est. Patient 14:55:50 ARCHIVIST MILITARY HISTORY Jose Zhong MD [facility] CPT-35302 Level 3 Est. Patient 10:21:41 ARCHIVIST MILITARY HISTORY Arie mcqueen MD [facility] CPT-58167 Level 3 Est. Patient 11:35:15 ARCHIVIST MILITARY HISTORY Arie mcqueen MD [facility] CPT-39886 Level 3 Est. Patient 15:40:28 CDT Brii Are ll [facility] CPT-75484 Level 3 Est. Patient 16:40:36 CDT Arie mcqueen MD [facility] CPT-35348 Level 4 Est. Patient 15:29:22 ARCHIVIST MILITARY HISTORY Arie mcqueen MD [facility] CPT-69987 Level 3 Est. Patient 15:18:16 ARCHIVIST MILITARY HISTORY Jono black [facility] CPT-56179 Level 4 Est. Patient 12:08:40 ARCHIVIST MILITARY HISTORY Brii Are ll [facility] CPT-93269 Level 3 Est. Patient 09:24:42 CDT Brii Are ll [facility] CPT-29807 Level 3 Est. Patient 09:12:56 CDT Arie mcqueen MD [facility] CPT-91118 Level 3 Est. Patient 16:40:54 CDT Jose Zhong MD [facility] CPT-17967 Level 2 Est. Patient 13:01:13 CDT Brii Are ll [facility] CPT-44009 Level 3 Est. Patient 11:55:30 ARCHIVIST MILITARY HISTORY Jono black [facility] CPT-85925 Level 3 Est. Patient 09:52:36 ARCHIVIST MILITARY HISTORY Brii Are ll [facility] CPT-48491 Level 3 Est. Patient 16:25:33 ARCHIVIST MILITARY HISTORY Rich Rosales MD [facility] CPT-30114 Level 3 Est. Patient 20:33:55 CDT Arie mcqueen MD [facility] CPT-88150 Level 3 Est. Patient 14:18:20 CDT Rich Rosales MD [facility] CPT-99124 Level 4 Est. Patient 09:34:31 CDT Arie mcqueen MD [facility] CPT-70721 Level 3 Est. Patient 09:08:55 ARCHIVIST MILITARY HISTORY Liliana vincent MD PhD [facility] CPT-70873 Level 3 Est. Patient 16:44:07 ARCHIVIST MILITARY HISTORY Arie mcqueen MD [facility] CPT-17201 Level 3 Est. Patient 10:44:27 CDT Arie mcqueen MD [facility] CPT-32296 Level 3 Est. Patient 08:55:41 CDT Jose Zhong MD [facility] CPT-40892 Level 3 Est. Patient 18:37:31 CDT Liliana vincent MD PhD [facility] CPT-40684 Level 3 Est. Patient 14:28:23 CDT Abelardo HERNANDEZ [facility] CPT-34646 Level 3 Est. Patient 15:18:13 ARCHIVIST MILITARY HISTORY Arie mcqueen MD [facility] CPT-95579 Level 3 Est. Patient 10:11:29 ARCHIVIST MILITARY HISTORY Arie mcqueen MD [facility] CPT-92887 Level 3 Est. Patient 10:55:57 ARCHIVIST MILITARY HISTORY Jono black DO [facility] CPT-29367 Level 3 Est. Patient 17:29:05 CDT Arie mcqueen MD [facility] [facility] Procedures Code Procedure Name Date Entry Date Standard Desc ription CPT-70495 Sono OB transvag XRAY USE ONLY 17:11:12 CS T CPT-06569 UHCG Urine - [facility] ONLY 12:13:59 [employer] 12/11 CPT-27101 Spec Collection and Handling Fee 12:13:[address] CPT-59304 Visit 12:13:59 [employer] CPT-51599 First Vx - Ix admin via ID I M or jet injects without counseling by physician 13:00:15 [employer] CPT-38471 Flulaval Intramuscular Injectable 13:00:15 [employer] CPT-69059 Urine Dip (Floor Use Only) 12:20:20 [employer] HISTORY 201 06/03/24 CPT-31956 Sono Soft Tissue Head and Neck - XRAY US E ONLY 17:10:14 CDT CPT-73981 Ear Wash with irrigation 17:21:41 CDT 07/04 CPT-76568 Nexplanon Removal 15:40:28 CDT CPT-47173 Sono transvag pelvis non OB uterus ovari es cervix - XRAY USE ONLY 08:58:14 [employer] CPT-93334 UA w micro - LAB USE ONLY 16:04:56 [employer] H[employer] 2015 CPT-85323 Wet Prep/GEN - LAB USE ONLY 16:04:56 [employer] HIST[employer] 20 08/10/29 CPT-73379 First Vx - Ix admin via ID I M or jet injects without counseling by physician 16:57:10 CDT CPT-98013 Fluzone Preservative Free Intramuscular Suspension 16:57:10 CDT CPT-J0696 Rocephin 1000 mg (Ceftriaxone) 11:49:23 CDT CPT-J1040 Depo Medrol 80 mg (Methyl Prednisolone A cetate) 11:49:23 CDT CPT-J1100 Decadron 8mg (Dexamethasone) 11:49:23 CDT 2 CPT-15126 Abx/Therapy Injection 11:49:23 CDT CPT-02922 Abx/Therapy Injection 11:49:23 CDT CPT-01886 Abd compl w upright 09:07:26 [employer] CPT-85920 Ear Wash 16:12:47 [employer] H[employer] CPT-OV Office Visit 11:12:01 CDT CPT-OV Office Visit 15:30:23 CDT CPT-73058 Sono pelvis non OB uterus ovaries cervix 15:50:44 CDT CPT-93217 Hand comp min 3V 16:42:32 CDT CPT-52048 Abd compl w upright 12:17:01 CDT CPT-65504 Nexplanon Placement 15:07:39 [employer] H[employer] CPT-91259 Removal of IUD 15:07:39 [employer] H[employer] CPT-81422 TB Tubersol 12:09:32 CDT CPT-83712 TB Tubersol 13:55:43 CDT
--- OUTSIDE RECORDS SUMMARY | 2020-03-03 06:58 | XMS REPORT | Clinical Summary ---
Author Author Admin, Diamante Marcelo Organization [facility] Address Unknown Phone Unavailable Allergies, Adverse [...] implantable subdermal contraceptiv e Active Brii Russ PAVER OPERATOR Vaginal bleeding 623.8 Active Arie Casper MD Other specified noninflammatory disorders of vagina Influenza like illness 487.1 Active Jose Mcwilliams MD Influenza with other respiratory manifestations Sinusitis 473.9 Active Jessica Heaton PAVER OPERATOR Unspecified sinusitis (chronic) Other mixed anxiety 300.00 [...] Cerumen impaction, bilateral 380.4 Active Brii Russ PAVER OPERATOR Impacted cerumen Tonsillar enlargement 474.11 Active Brii Yepezboris PAVER OPERATOR Hypertrophy of tonsils alone Influenza Vaccination for Prophylaxis V04.81 Inactive Brii Russ PAVER OPERATOR Need for prophylactic vaccin ation and inoculation against influenza Submandibular lymph node 785.6 Active Brii escalante PAVER OPERATOR Enlargement of lymph nodes Influenza Vaccination for [...] site; multiple sites Vaginal pruritus 698.1 Active Tail HERNANDEZ -C Pruritus of genital organs DYSPAREUNIA [...] 3-4 times per day 12/11 PYRIDOXINE HCL 82065230922 Active Myrna Roberto MD Active UNISOM SLEEPTABS 25 MG ORAL TABLET one tab PO qhs DOXYLAMINE SUCCINATE (SLEEP) 58673615559 Active Myrna Roberto MD Active TYLENOL 325 MG ORAL CAPSULE PRN ACETAMINOPHEN 000 15878184 Active Brii Pacheco Active ESCITALOPRAM OXALATE 10 MG ORAL TABLET take 1 tab po qhs for mod ESCITALOPRAM OXALATE 90507250536 No Longer Active Brii Pacheco Active ALPRAZOLAM 0.25 MG ORAL TABLET 1 tablet by mouth twice a day as needed for stress/anxiety ALPRAZOLAM 35733280022 No Longer Active Brii Pacheco Active PROTONIX 40 MG ORAL TABLET DELAYED RELEASE 1 pill by m outh daily, for acid reflux PANTOPRAZOLE SODIUM 16478237190 No Longer Activ e Brii Chewna Active DIFLUCAN 100 MG ORAL TABLET 1 tablet by mouth daily, R EPEAT 2ND DOSE IN 7 DAYS IF STILL SYMPTOMATIC FLUCONAZOLE 42673407656 No Long er Active Nilam Weber Active KEFLEX 500 MG ORAL CAPSULE 1 po tid CEPHALEXI N 47749803309 No Longer Active Tali Devi PA-C Active CONCEPT DHA 53.5-38-1 MG ORAL CAPSULE 1 tablet daily [id number] 3 28678426250 Active Oxana Souza LPN Active AMOXICILLIN 875 MG ORAL TABLET 1 tab by mouth twice daily 1 AMOXICILLIN 22615064459 No Longer Active Brii Russ APRN Active TUSSIONEX PENNKINETIC ER 10-8 MG/5ML ORAL SUSPENSION E XTENDED RELEASE 5ml po q12hr PRN Cough HYDROCOD POLST-CHLORPHEN POLST 5 4997050919 No Longer Active Myrna Roberto MD Active ZITHROMAX Z-EMIL 250 MG TABS Take two tablets today and then 1 tablet daily for 4 days AZITHROMYCIN 22148735258 No Longer Active Flaco Rosales MD Active GUAIFENESIN DM 400-20 MG ORAL TABLET 1 pill by mouth t wice daily, if needed for cough DEXTROMETHORPHAN-GUAIFENESIN 12443966963 No Longer Active Rich Rosales MD Active CEFDINIR 300 MG ORAL CAPSULE 1 po BID x 10 days CEFDINIR 20617528700 No Longer Active Jessica Heaton APRN Active CHERATUSSIN AC 100-10 MG/5ML ORAL SYRUP 1 tsp by mouth every 4 hours as needed for cough GUAIFENESIN-CODEINE 68669507759 No Longe r Active Jessica Heaton APRN Active TAMIFLU 75 MG ORAL CAPSULE 1 po BID x 5 days 0 OSELTAMIVIR PHOSPHATE 69552702321 No Longer Active Jose Zhong MD Activ e ZITHROMAX Z-EMIL 250 MG ORAL TABLET 2 today, then 1 daily for 4 d ays AZITHROMYCIN 08757849237 No Longer Active Arie Casper MD Active PROTONIX 40 MG ORAL TABLET DELAYED RELEASE 1 po q a.m. PANTOPRAZOLE SODIUM 79227001959 No Longer Active Arie Casper MD Active BACTRIM DS 800-160 MG ORAL TABLET 1 tab by mouth twice daily 201 05/02/30 TRIMETHOPRIM-SULFAMETHOXAZOLE 85137460653 No Longer Active R uth Ty, RMA Active NEXPLANON IMPLANT right arm subcutaneously ETONOGESTREL IMPL 34314430852 No Longer Active Brii Russ APRN Active TUSSIONEX PENNKINETIC ER 10-8 MG/5ML ORAL SUSPENSION E XTENDED RELEASE 5ml po q12hr PRN Cough HYDROCOD POLST-CHLORPHEN POLST 5 8677080349 No Longer Active Brii Russ APRN Active CETIRIZINE HCL 10 MG ORAL TABLET 1 po qd PRN Allergies CETIRIZINE HCL 05632998077 No Longer Active Brii Russ APRN Activ e PREDNISONE 20 MG ORAL TABLET 2 tabs daily for 3 days, 1 tab daily for 3 days, 1/2 tab daily for 2 days PREDNISONE 08506158200 No Longer Active Arie Casper MD Active LOMOTIL 2.5-0.025 MG ORAL TABLET 1 tab po four times a day as needed for diarrhea DIPHENOXYLATE-ATROPINE 41865162341 No Lo nger Active Arie Casper MD Active ZOLOFT 50 MG ORAL TABLET 1 tablet by mouth daily 12/08 SERTRALINE HCL 78947600280 No Longer Active Arie Casper MD Ac tive NAPROXEN 500 MG ORAL TABLET Take 1 tab BID NAPR OXEN 39184476859 No Longer Active Arie Casper MD Active CEFDINIR 300 MG ORAL CAPSULE 1 po BID x 10 days CEFDINIR 49039462196 No Longer Active Brii Russ APRN Active PREDNISONE 20 MG ORAL TABLET 1 tablet daily for airway inflammat ion PREDNISONE 95676395642 No Longer Active Brii Russ APRN A ctive CEFDINIR 300 MG ORAL CAPSULE 1 po BID x 10 days CEFDINIR 76993771823 No Longer Active Jono Gagnon DO Active FLONASE 50 MCG/ACT NASAL SUSPENSION 1 spray each nostr il twice daily for allergies and runny nose until gone FLUT ICASONE PROPIONATE 23033665339 No Longer Active Jono Gagnon DO Active ALPRAZOLAM 0.25 MG ORAL TABLET 1 tablet by mouth every 8 hours as needed for stress ALPRAZOLAM 55092378356 No Longer Active Jono Gagnon DO Active ZITHROMAX Z-EMIL 250 MG ORAL TABLET 2 today, then 1 daily for 4 d ays AZITHROMYCIN 99698084372 No Longer Active Arie Casper MD Active PREDNISONE 20 MG ORAL TABLET 2 tabs daily for 3 days, 1 tab daily for 3 days, 1/2 tab daily for 2 days PREDNISONE 95184631849 No Longer Active Brii Russ APRN Active PREDNISONE 20 MG ORAL TABLET 1 tablet twice daily for 2 days, then 1 tablet once daily for 2 days PREDNISONE 59828634668 No Longer Active Brii Russ APRN Active PROMETHAZINE HCL 12.5 MG ORAL TABLET 1 tablet by mouth every 6 hours as needed for nausea/vomiting PROMETHAZINE HCL 02124522248 No L onger Active Jono Gagnon DO Active CITRATE OF MAGNESIA ORAL SOLUTION 1 bottle today for constipatio n MAGNESIUM CITRATE 91428835374 No Longer Active Jono Gagnon DO Active ZOFRAN 4 MG ORAL TABLET 1 TAB PO Q 6 HRS PRN NAUSEA 20 07/10/15 ONDANSETRON HCL 57153730035 No Longer Active Brii Russ APRN Acti ve LOMOTIL 2.5-0.025 MG ORAL TABLET 1 to 2 four times a day as needed for diarrhea DIPHENOXYLATE-ATROPINE 91511405835 No Longer Active January Russ APRN Active AMOXICILLIN 500 MG ORAL TABLET 2 tabs twice a day for 10 days 20 07/09/11 AMOXICILLIN 72163302185 No Longer Active Brii Russ APRN Active CYCLOBENZAPRINE HCL 10 MG ORAL TABLET 1/2 - 1 tablet b y mouth three times daily as needed for muscle spasm/pain CYCLOBENZAPRINE HCL 05843227561 No Longer Active Arie Casper MD Active LOMOTIL 2.5-0.025 MG ORAL TABLET 1 to 2 four times a day as needed for diarrhea DIPHENOXYLATE-ATROPINE 55461864624 No Longer Active Fozia Casper MD Active MACROBID 100 MG ORAL CAPSULE 1 cap by mouth twice daily NITROFURANTOIN MONOHYD MACRO 59964772077 No Longer Active Arie Casper MD Active ZYRTEC ALLERGY 10 MG ORAL CAPSULE 1 po qd CE TIRIZINE HCL 67737146072 No Longer Active Arie Casper MD Active AZITHROMYCIN 250 MG ORAL TABLET 2 po qd x 1 day, then 1 po q d x 4 days AZITHROMYCIN 93980264002 No Longer Active Jillina Fra naomi PAVER OPERATOR Active PREDNISONE 20 MG ORAL TABLET 2 tabs daily for 3 days, 1 tab daily for 3 days, 1/2 tab daily for 2 days PREDNISONE 90738808772 No Longer Active Jillina Frazell PAVER OPERATOR Active PROMETHAZINE HCL 25 MG ORAL TABLET 1 four times a day as nee ded for vomiting PROMETHAZINE HCL 18178377483 No Longer Active Myrna Roberto MD Active BACTRIM DS 800-160 MG ORAL TABLET 1 twice a day 05/30 SULFAMETHOXAZOLE-TRIMETHOPRIM 35707658010 No Longer Active Myrna Roberto MD Active VICKS DAYQUIL SEVERE COLD/FLU TABLET 1 tab every 6 hours prn 201 02/22/17 [id number] TABS 33320212049 No Longer Active Chris Roberto MD Active GUAIFENESIN-CODEINE 100-10 MG/5ML ORAL SYRUP 2 tsp every 6 hours prn GUAIFENESIN-CODEINE 23101900022 No Longer Active Myrna Roberto MD Active NAPROXEN 500 MG ORAL TABLET one tab PO BID NAPR OXEN 33220934429 No Longer Active Myrna Roberto MD Active AUGMENTIN 875-125 MG ORAL TABLET 1 tab by mouth twice daily with food AMOXICILLIN-POT CLAVULANATE 40294729894 No Longer Act zaid Liliana Estrada MD PhD Active AMOXICILLIN 500 MG ORAL CAPSULE 1 tab by mouth 3 times daily 201 02/21/05 AMOXICILLIN 22466085250 No Longer Active Liliana Estrada MD PhD Active TESSALON PERLES 100 MG ORAL CAPSULE 1 tablet by mouth 3 times da cory BENZONATATE 30505748408 No Longer Active Liliana Estrada MD PhD Active FLAGYL 500 MG ORAL TABLET 1 tablet by mouth two times daily 2014 METRONIDAZOLE 18438757848 No Longer Active Nilam ida Ac tive ZITHROMAX 250 MG ORAL TABLET 2 po today, then 1 po q days 2-5 20 06/08/16 AZITHROMYCIN 10466168837 No Longer Active Arie Casper MD Active VITAMINS 0.8 MG ORAL TABLET take 1 tab po qday [id number] 78401677774 No Longer Active Arie Casper MD Active IBUPROFEN 800 MG ORAL TABLET take one po Q 8 hours 201 02/01/16 IBUPROFEN 61058071196 No Longer Active Arie Casper MD Acti ve [facility] TUSSIN COUGH/COLD CF 5-10-100 MG/5ML ORAL LIQUID 2 teasp oons every 4 hours [id number] 85434592450 No Longer Active Blaine Casper MD Active COMTREX COLD/COUGH DAY/NITE MS 5-2-10-325 MG ORAL 2 caps deja ry 4 hours [id number] 92148820777 No Longer Active Landon Casper MD Active CHLORASEPTIC MAX SORE THROAT 15-10 MG MOUTH/THROAT LOZENGE 1 every 2 hours prn BENZOCAINE-MENTHOL 70651580858 No Longer Active Arie Casper MD Active PREDNISONE 20 MG ORAL TABLET 2 tabs daily for 3 days, 1 tab daily for 3 days, 1/2 tab daily for 2 days PREDNISONE 26424479810 No Longer Active Jose Zhong MD Active AZITHROMYCIN 250 MG ORAL TABLET 2 po qd x 1 day, then 1 po q d x 4 days AZITHROMYCIN 33759257196 No Longer Active Jose Mcwilliams MD Active ZOFRAN ODT 4 MG ORAL TABLET DISINTEGRATING 1 po q6hr PRN Nausea ONDANSETRON 87403805073 No Longer Active Rich Rosales MD Active ZOFRAN 4 MG ORAL TABLET 1 tablet every 4 hours ONDANSETRON HCL 91413158078 No Longer Active Rich Rosales MD Activ e MUCINEX 600 MG ORAL TABLET EXTENDED RELEASE 12 HOUR Ta ke 1-2 tablets every 12 hours GUAIFENESIN 89922385196 No Longer Active Rich Rosales MD Active BACTRIM 400-80 MG ORAL TABLET take one po BID SULFAMETHOXAZOLE-TRIMETHOPRIM 36919901695 No Longer Active Abelardo HERNANDEZ Active AZITHROMYCIN 500 MG ORAL TABLET 1 PO q day x 6 days 20 03/02/23 AZITHROMYCIN 41610892244 No Longer Active Tin HERNANDEZ Activ e ZITHROMAX 250 MG ORAL TABLET 2 po today, then 1 po q days 2-5 20 10/03/08 AZITHROMYCIN 92591403902 No Longer Active Arie Casper MD Active ZITHROMAX 250 MG ORAL TABLET 2 po today, then 1 po q days 2-5 20 09/23/25 AZITHROMYCIN 22003081785 No Longer Active Arie Casper MD Active AMOXICILLIN 500 MG ORAL CAPSULE 1 tab by mouth 3 times daily 201 11/24/09 AMOXICILLIN 19305829522 No Longer Active Arie Casper MD Active BACTRIM DS 800-160 MG ORAL TABLET 1 tab by mouth twice daily 201 11/03/14 TRIMETHOPRIM-SULFAMETHOXAZOLE 44498493090 No Longer Active Fozia Casper MD Active AMOXICILLIN 500 MG ORAL TABLET take 1 tab po TID 08/05 AMOXICILLIN 80795145071 No Longer Active Arie Casper MD Acti [...] 4 hours ZOFRAN 4 MG ORAL TABLET 382773 ONDANSETRON HCL Inactive ZOFRAN ODT 4 MG [...] COLD/COUGH DAY/NITE MS 5-2-10-325 MG ORA L [id number] Inactive [facility] TUSSIN COUGH/COLD CF 5-10-100 MG/5ML ORAL LIQUID 2 teasp oons every 4 hours [facility] TUSSIN COUGH/COLD CF 5-10-100 MG/5ML ORAL LI QUID [id number] Inactive IBUPROFEN 800 MG ORAL TABLET take one po Q 8 hours 201 02/01/16 IBUPROFEN 800 MG ORAL TABLET IBUPROFEN Inactive VITAMINS 0.8 MG ORAL TABLET take 1 tab po qday VITAMINS 0.8 MG ORAL TABLET [id number] E-FA Inactive TESSALON PERLES 100 MG ORAL CAPSULE 1 tablet by mouth 3 times da cory TESSALON PERLES 100 MG ORAL CAPSULE 19730630 BENZONATATE Inactive AMOXICILLIN 500 MG ORAL CAPSULE 1 tab by mouth 3 times daily 201 02/21/05 AMOXICILLIN 500 MG ORAL CAPSULE 486326 AMOXICILLIN Inactive GUAIFENESIN-CODEINE 100-10 MG/5ML ORAL SYRUP 2 tsp every 6 hours prn GUAIFENESIN-CODEINE 100-10 MG/5ML ORAL SYRUP 975762 GUAIFENESIN-CODEINE Inactive VICKS DAYQUIL SEVERE COLD/FLU TABLET 1 tab every 6 hours prn 201 02/22/17 VICKS DAYQUIL SEVERE COLD/FLU TABLET PHENYLEPHRI PG-MD-ZI-APAP TABS Inactive BACTRIM DS 800-160 MG ORAL TABLET 1 twice a day 05/30 BACTRIM DS 800-160 MG ORAL TABLET 450782 SULFAMETHOXAZOLE-TRIMETHOPRIM Inactiv e PROMETHAZINE HCL 25 MG ORAL TABLET 1 four times a day as nee ded for vomiting PROMETHAZINE HCL 25 MG ORAL TABLET 524185 PROMETHAZINE HCL Inactive ZYRTEC ALLERGY 10 MG ORAL CAPSULE 1 po qd ZYRTEC ALLERGY 10 MG ORAL CAPSULE CETIRIZINE HCL Inactive MACROBID 100 MG ORAL CAPSULE 1 cap by mouth twice daily MACROBID 100 MG ORAL CAPSULE 9211148 NITROFURANTOIN MONOHYD MACRO In active LOMOTIL 2.5-0.025 MG ORAL TABLET 1 to 2 four times a day as needed for diarrhea LOMOTIL 2.5-0.025 MG ORAL TABLET 1540624 DIPHENOXYLATE-ATROPINE Inactive CYCLOBENZAPRINE HCL 10 MG ORAL TABLET 1/2 - 1 tablet b y mouth three times daily as needed for muscle spasm/pain CYCLOBEN ZAPRINE HCL 10 MG ORAL TABLET 316220 CYCLOBENZAPRINE HCL Inactive AMOXICILLIN 500 MG ORAL TABLET 2 tabs twice a day for 10 days 20 07/09/11 AMOXICILLIN 500 MG ORAL TABLET 373048 AMOXICILLIN I nactive LOMOTIL 2.5-0.025 MG ORAL TABLET 1 to 2 four times a day as needed for diarrhea LOMOTIL 2.5-0.025 MG ORAL TABLET 7865645 DIPHENOXYLATE-ATROPINE Inactive ZOFRAN 4 MG ORAL TABLET 1 TAB PO Q 6 HRS PRN NAUSEA 20 07/10/15 ZOFRAN 4 MG ORAL TABLET 580875 ONDANSETRON HCL Inactive CITRATE OF MAGNESIA ORAL SOLUTION 1 bottle today for constipatio n CITRATE OF MAGNESIA ORAL SOLUTION 3176044 MAGNESIUM CITR ATE Inactive PROMETHAZINE HCL 12.5 MG ORAL TABLET 1 tablet by mouth every 6 hours as needed for nausea/vomiting PROMETHAZINE HCL 12.5 MG ORA L TABLET 931373 PROMETHAZINE HCL Inactive PREDNISONE 20 MG ORAL TABLET 1 tablet twice daily for 2 days, then 1 tablet once daily for 2 days PREDNISONE 20 MG ORAL TABLET 987972 PREDNISONE Inactive ALPRAZOLAM 0.25 MG ORAL TABLET 1 tablet by mouth every 8 hours as needed for stress ALPRAZOLAM 0.25 MG ORAL TABLET 493907 ALPRA ZOLAM Inactive FLONASE 50 MCG/ACT NASAL SUSPENSION 1 spray each nostr il twice daily for allergies and runny nose until gone FLON ASE 50 MCG/ACT NASAL SUSPENSION 6377660 FLUTICASONE PROPIONATE Inactive PREDNISONE 20 MG ORAL TABLET 1 tablet daily for airway inflammat ion PREDNISONE 20 MG ORAL TABLET 176398 PREDNISONE [place] ctive NAPROXEN 500 MG ORAL TABLET Take 1 tab BID NAPROXEN 500 MG ORAL TABLET 954516 NAPROXEN Inactive ZOLOFT 50 MG ORAL TABLET 1 tablet by mouth daily 12/08 ZOLOFT 50 MG ORAL TABLET 865967 SERTRALINE HCL Inactive LOMOTIL 2.5-0.025 MG ORAL TABLET 1 tab po four times a day as needed for diarrhea LOMOTIL 2.5-0.025 MG ORAL TABLET 9749370 DIPHENOXYLATE-ATROPINE Inactive CETIRIZINE HCL 10 MG ORAL TABLET 1 po qd PRN Allergies CETIRIZINE HCL 10 MG ORAL TABLET 0704225 CETIRIZINE HCL Inactiv e TUSSIONEX PENNKINETIC ER 10-8 MG/5ML ORAL SUSPENSION E XTENDED RELEASE 5ml po q12hr PRN Cough TUSSIONEX PENNKINETI C ER 10-8 MG/5ML ORAL SUSPENSION EXTENDED RELEASE HYDROCOD POLST-CHLORPHEN POLST I nactive NEXPLANON IMPLANT right arm subcutaneously NEXPLANON IMPLANT ETONOGESTREL IMPL Inactive PROTONIX 40 MG ORAL TABLET DELAYED RELEASE 1 po q a.m. PROTONIX 40 MG ORAL TABLET DELAYED RELEASE 541269 PANTOPRAZOLE SODI UM Inactive CHERATUSSIN AC 100-10 MG/5ML ORAL SYRUP 1 tsp by mouth every 4 hours as needed for cough CHERATUSSIN AC 100-10 MG/5ML ORAL SYRUP 9 77868 GUAIFENESIN-CODEINE Inactive GUAIFENESIN DM 400-20 MG ORAL [...] tid K EFLEX 500 MG ORAL CAPSULE 847444 CEPHALEXIN Inactive DIFLUCAN 100 MG ORAL TABLET 1 tablet by mouth daily, R EPEAT 2ND DOSE IN 7 DAYS IF STILL SYMPTOMATIC DIFLUCAN 100 MG ORAL TABLET 51679 8 FLUCONAZOLE Inactive PROTONIX 40 MG ORAL TABLET DELAYED RELEASE 1 pill by m outh daily, for acid reflux PROTONIX 40 MG ORAL TABLET DELAYED RELEAS E 745558 PANTOPRAZOLE SODIUM Inactive ALPRAZOLAM 0.25 MG ORAL TABLET 1 tablet by mouth twice a day as needed for stress/anxiety ALPRAZOLAM 0.25 MG ORAL TABLET 963667 ALPRAZOLAM Inactive ESCITALOPRAM OXALATE 10 MG ORAL TABLET take 1 tab po qhs for mod ESCITALOPRAM OXALATE 10 MG ORAL TABLET 958648 ESCITALOP JO OXALATE Inactive AMOXICILLIN 500 MG ORAL TABLET take 1 tab po TID 08/05 AMOXICILLIN 500 MG ORAL TABLET 362847 AMOXICILLIN Inactive AMOXICILLIN 500 MG ORAL CAPSULE 1 tab by mouth 3 times daily 201 11/24/09 AMOXICILLIN 500 MG ORAL CAPSULE 987490 AMOXICILLIN Inactive ZITHROMAX 250 MG ORAL TABLET 2 po today, then 1 po q days 2-5 20 09/23/25 ZITHROMAX 250 MG ORAL TABLET 553992 AZITHROMYCIN [place] ctive ZITHROMAX 250 MG ORAL TABLET 2 po today, then 1 po q days 2-5 20 10/03/08 ZITHROMAX 250 MG ORAL TABLET 232843 AZITHROMYCIN [place] ctive AZITHROMYCIN 500 MG ORAL TABLET 1 PO q day x 6 days 20 03/02/23 AZITHROMYCIN 500 MG ORAL TABLET 6166538 AZITHROMYCIN Inactive BACTRIM 400-80 MG ORAL TABLET take one po BID BACTRIM 400- 80 MG ORAL TABLET 320931 SULFAMETHOXAZOLE-TRIMETHOPRIM Inactive AZITHROMYCIN 250 MG ORAL TABLET 2 po qd x 1 day, then 1 po q d x 4 days AZITHROMYCIN 250 MG ORAL TABLET 828247 AZITHROMY ALLISON Inactive PREDNISONE 20 MG ORAL TABLET 2 tabs daily for 3 days, 1 tab daily for 3 days, 1/2 tab daily for 2 days PREDNISONE 20 MG ORAL T ABLET 292877 PREDNISONE Inactive ZITHROMAX 250 MG ORAL TABLET 2 po today, then 1 po q days 2-5 20 06/08/16 ZITHROMAX 250 MG ORAL TABLET 100035 AZITHROMYCIN [place] ctive FLAGYL 500 MG ORAL TABLET 1 tablet by mouth two times daily 2014 FLAGYL 500 MG ORAL TABLET 160280 METRONIDAZOLE Inacti ve AUGMENTIN 875-125 MG ORAL TABLET 1 tab by mouth twice daily with food AUGMENTIN 875-125 MG ORAL TABLET 633212 AMOXICIL ELSA-POT CLAVULANATE Inactive NAPROXEN 500 MG ORAL TABLET one tab PO BID NAPROXEN 500 MG ORAL TABLET 056232 NAPROXEN Inactive PREDNISONE 20 MG ORAL TABLET 2 tabs daily for 3 days, 1 tab daily for 3 days, 1/2 tab daily for 2 days PREDNISONE 20 MG ORAL T ABLET 648565 PREDNISONE Inactive AZITHROMYCIN 250 MG ORAL TABLET 2 po qd x 1 day, then 1 po q d x 4 days AZITHROMYCIN 250 MG ORAL TABLET 191541 AZITHROMY ALLISON Inactive PREDNISONE 20 MG ORAL TABLET 2 tabs daily for 3 days, 1 tab daily for 3 days, 1/2 tab daily for 2 days PREDNISONE 20 MG ORAL T ABLET 260029 PREDNISONE Inactive ZITHROMAX Z-EMIL 250 MG ORAL TABLET 2 today, then 1 daily for 4 d ays ZITHROMAX Z-EMIL 250 MG ORAL TABLET 041615 AZITHROMYCIN Inactive CEFDINIR 300 MG ORAL CAPSULE 1 po BID x 10 days 12/18 CEFDINIR 300 MG ORAL CAPSULE 874437 CEFDINIR Inactive CEFDINIR 300 MG ORAL CAPSULE 1 po BID x 10 days CEFDINIR 300 MG ORAL CAPSULE 605151 CEFDINIR Inactive PREDNISONE 20 MG ORAL TABLET 2 tabs daily for 3 days, 1 tab daily for 3 days, 1/2 tab daily for 2 days PREDNISONE 20 MG ORAL T ABLET 606482 PREDNISONE Inactive BACTRIM DS 800-160 MG ORAL TABLET 1 tab by mouth twice daily 201 05/02/30 BACTRIM DS 800-160 MG ORAL TABLET 009303 TRIMETHOPRIM-SULFAMETHOXAZOLE Inactive ZITHROMAX Z-EMIL 250 MG ORAL TABLET 2 today, then 1 daily for 4 d ays ZITHROMAX Z-EMIL 250 MG ORAL TABLET 595611 AZITHROMYCIN Inactive TAMIFLU 75 MG ORAL CAPSULE 1 po BID x 5 days 0 TAMIFLU 75 MG ORAL CAPSULE 880727 OSELTAMIVIR PHOSPHATE Inactive CEFDINIR 300 MG ORAL CAPSULE 1 po BID x 10 days 201801/03 CEFDINIR 300 MG ORAL CAPSULE 791502 CEFDINIR Inactive ZITHROMAX Z-EMIL 250 MG TABS Take two tablets today and then 1 tablet daily for 4 days ZITHROMAX Z-EMIL 250 MG TABS 232560 AZITHROM YCIN Inactive AMOXICILLIN 875 MG ORAL TABLET 1 tab by mouth twice daily AMOXICILLIN 875 MG ORAL TABLET 964942 AMOXICILLIN Inactive Advance Directives Directive Description Start [...] 11 .0-15.0 platelet count 280 THOUSAND/UL 10*3/mm3 541-471 6122/02/18 mean platelet volume 11.6 fL 7.5-12.5 Lab [...] 0.2 Encounters Code Encounter Date Provider Facility [facility]-48645 [id number] Vst-Est Level IV 13:45:[address] Tali Devi PA-C -24380 [id number] Vst-Est Level III 09:41:31 CDT Arie Casper MD -34901 [id number] Vst-Est Level III 18:20:11 CDT [facility] [id number] Vst-Est Level III 17:21:41 CDT [facility]60216 [id number] Vst-Est Level IV 13:30:22 C NIC aCsper MD -98427 Level 4 Est. Patient 13:05:26 CDT Myrna maldonado MD -26738 [id number] Vst-Est Level IV 20:50:21 C NIC Casper MD -71236 Level 3 Est. Patient 11:49:34 EMBALMER APPRENTICE Jessica boyd [facility] CPT-89820 Level 3 Est. Patient 14:55:50 EMBALMER APPRENTICE Jose Zhong MD [facility] CPT-33644 Level 3 Est. Patient 10:21:41 EMBALMER APPRENTICE Arie mcqueen MD [facility] CPT-21014 Level 3 Est. Patient 11:35:15 EMBALMER APPRENTICE Arie mcqueen MD [facility] CPT-37988 Level 3 Est. Patient 15:40:28 CDT Brii Are ll [facility] CPT-38268 Level 3 Est. Patient 16:40:36 CDT Arie mcqueen MD [facility] CPT-44886 Level 4 Est. Patient 15:29:22 EMBALMER APPRENTICE Arie mcqueen MD [facility] CPT-83530 Level 3 Est. Patient 15:18:16 EMBALMER APPRENTICE Jono black [facility] CPT-18684 Level 4 Est. Patient 12:08:40 EMBALMER APPRENTICE Brii Are ll [facility] CPT-84775 Level 3 Est. Patient 09:24:42 CDT Brii Are ll [facility] CPT-77064 Level 3 Est. Patient 09:12:56 CDT Arie mcqueen MD [facility] CPT-36957 Level 3 Est. Patient 16:40:54 CDT Jose Zhong MD [facility] CPT-39281 Level 2 Est. Patient 13:01:13 CDT Brii Are ll [facility] CPT-24311 Level 3 Est. Patient 11:55:30 EMBALMER APPRENTICE Jono black [facility] CPT-75345 Level 3 Est. Patient 09:52:36 EMBALMER APPRENTICE Brii Are ll [facility] CPT-12955 Level 3 Est. Patient 16:25:33 EMBALMER APPRENTICE Rich Rosales MD [facility] CPT-27506 Level 3 Est. Patient 20:33:55 CDT Arie mcqueen MD [facility] CPT-22809 Level 3 Est. Patient 14:18:20 CDT Rich Rosales MD [facility] CPT-70196 Level 4 Est. Patient 09:34:31 CDT Arie mcqueen MD [facility] CPT-33581 Level 3 Est. Patient 09:08:55 EMBALMER APPRENTICE Liliana vincent MD PhD [facility] CPT-01513 Level 3 Est. Patient 16:44:07 EMBALMER APPRENTICE Arie mcqueen MD [facility] CPT-59324 Level 3 Est. Patient 10:44:27 CDT Arie mcqueen MD [facility] CPT-62747 Level 3 Est. Patient 08:55:41 CDT Jose Zhong MD [facility] CPT-31540 Level 3 Est. Patient 18:37:31 CDT Liliana vincent MD PhD [facility] CPT-97167 Level 3 Est. Patient 14:28:23 CDT Abelardo HERNANDEZ [facility] CPT-36395 Level 3 Est. Patient 15:18:13 EMBALMER APPRENTICE Arie mcqueen MD [facility] CPT-37395 Level 3 Est. Patient 10:11:29 EMBALMER APPRENTICE Arie mcqueen MD [facility] CPT-76071 Level 3 Est. Patient 10:55:57 EMBALMER APPRENTICE Jono black DO [facility] CPT-86641 Level 3 Est. Patient 17:29:05 CDT Arie mcqueen MD [facility] Procedures Code Procedure Name Date Entry Date Standard Desc ription CPT-36813 Sono OB transvag XRAY USE ONLY 17:11:12 CS T CPT-88583 UHCG Urine - MARC ONLY 12:13:59 EMBALMER APPRENTICE 12/11 CPT-58390 Spec Collection and Handling Fee 12:13:[address] CPT-30460 Visit 12:13:59 EMBALMER APPRENTICE CPT-07649 First Vx - Ix admin via ID I M or jet injects without counseling by physician 13:00:15 EMBALMER APPRENTICE CPT-97113 Flulaval Intramuscular Injectable 13:00:15 EMBALMER APPRENTICE CPT-50647 Urine Dip (Floor Use Only) 12:20:20 EMBALMER APPRENTICE 201 06/03/24 CPT-68000 Sono Soft Tissue Head and Neck - XRAY US E ONLY 17:10:14 CDT CPT-95032 Ear Wash with irrigation 17:21:41 CDT 07/04 CPT-18499 Nexplanon Removal 15:40:28 CDT CPT-21122 Sono transvag pelvis non OB uterus ovari es cervix - XRAY USE ONLY 08:58:14 EMBALMER APPRENTICE CPT-22146 UA w micro - LAB USE ONLY 16:04:56 EMBALMER APPRENTICE 2015 CPT-85521 Wet Prep/GEN - LAB USE ONLY 16:04:56 EMBALMER APPRENTICE 20 08/10/29 CPT-02532 First Vx - Ix admin via ID I M or jet injects without counseling by physician 16:57:10 CDT CPT-72557 Fluzone Preservative Free Intramuscular Suspension 16:57:10 CDT CPT-J0696 Rocephin 1000 mg (Ceftriaxone) 11:49:23 CDT CPT-J1040 Depo Medrol 80 mg (Methyl Prednisolone A cetate) 11:49:23 CDT CPT-J1100 Decadron 8mg (Dexamethasone) 11:49:23 CDT 2 CPT-19501 Abx/Therapy Injection 11:49:23 CDT CPT-41783 Abx/Therapy Injection 11:49:23 CDT CPT-52369 Abd compl w upright 09:07:26 EMBALMER APPRENTICE CPT-28105 Ear Wash 16:12:47 EMBALMER APPRENTICE CPT-OV Office Visit 11:12:01 CDT CPT-OV Office Visit 15:30:23 CDT CPT-19737 Sono pelvis non OB uterus ovaries cervix 15:50:44 CDT CPT-69629 Hand comp min 3V 16:42:32 CDT CPT-94057 Abd compl w upright 12:17:01 CDT CPT-98602 Nexplanon Placement 15:07:39 EMBALMER APPRENTICE CPT-92634 Removal of IUD 15:07:39 EMBALMER APPRENTICE CPT-23703 TB Tubersol 12:09:32 CDT CPT-81136 TB Tubersol 13:55:43 CDT
--- OUTSIDE RECORDS SUMMARY | 2020-03-03 06:59 | XMS REPORT | Clinical Summary ---
Author Author Admin, Diamante Marcelo Organization [employer] Address Unknown Phone Unavailable Allergies, Adverse [...] unspecified Cerumen impaction, right 380.4 Active Alex isamar Rosales MD Impacted cerumen Sore throat 462 [...] with depression 300.4 Active Brii Ramirez l CST Dysthymic disorder URI 465.9 Active Jono Gagnon DO Acu te upper respiratory infections of unspecified site Vaginal bleeding 623.8 Resolved Jose Zhong MD Other specified noninflammatory disorders of vagina High risk sexual behavior V69.2 Active Arie Casper MD High-risk sexual behavior GERD 530.81 Active Arie aCsper MD Esophageal reflux Encounter for surveillance of implantable subdermal contraceptiv e Active Brii Russ APRN Vaginal bleeding 623.8 Active Arie Casper MD Other specified noninflammatory disorders of vagina Influenza like illness 487.1 Active Jose Mcwilliams MD Influenza with other respiratory manifestations Sinusitis 473.9 Active Jessica Heaton CST Unspecified sinusitis (chronic) Other mixed anxiety 300.00 [...] cerumen Tonsillar enlargement 474.11 Active Brii Arell CST Hypertrophy of tonsils alone Influenza Vaccination for Prophylaxis V04.81 Inactive Brii Arell CST Need for prophylactic vaccin ation and inoculation against influenza Submandibular lymph node 785.6 Active Brii Are ll CST Enlargement of lymph nodes Influenza Vaccination for [...] pelayo MD ACUTE FRONTAL SINUSITIS ICD-461.1 Inactive Meghan Estrada MD PhD CYSTITIS ICD-595.9 Inactive Liliana Estrada MD Ph D Symptom, cough ICD-786.2 Inactive Liliana Estrada MD PhD Vaginal discharge ICD-623.5 Inactive Liliana lares MD PhD Sinusitis, maxillary, acute ICD-461.0 Inactive Myrna Roberto MD Pharyngitis ICD-462 Inactive Myrna Roberto MD 2018 Gastroenteritis, acute ICD-558.9 Inactive Sergio Roberto MD Fibroids, uterus ICD-218.9 Inactive Myrna jesus MD ACCIDENT CAUSED BY HYPODERMIC NEEDLE ICD-E920.5 Inactive Myrna Roberto MD Sinusitis, acute ICD-461.9 Inactive Liliana cheema MD PhD Fever ICD-780.60 Inactive Liliana Estrada MD PhD 20 08/12/16 Vaginal bleeding ICD-623.8 Inactive Jose Mcwilliams MD Influenza Vaccination for Prophylaxis ICD-V04.81 6 Inactive Carole HOPKINS Influenza Vaccination for Prophylaxis ICD-V04.81 8 Inactive Nilam Gus Influenza Vaccination for Prophylaxis ICD-V04.81 5 Inactive Liliana Gaspar MA Urinary frequency ICD-788.41 Inactive Jose Zhong MD Medication List Medication Instructions Start Date Stop Date Generic Name NDC Status Provider Patient Instruction PYRIDOXINE HCL 25 MG ORAL TABLET one tab PO 3-4 times per day 12/11 PYRIDOXINE HCL [id number] Active Myrna Roberto MD Active UNISOM SLEEPTABS 25 MG ORAL TABLET one tab PO qhs DOXYLAMINE SUCCINATE (SLEEP) 68648598263 Active Myrna Roberto MD Active TYLENOL 325 MG ORAL CAPSULE PRN ACETAMINOPHEN 000 46836193 Active Brii Pacheco Active ESCITALOPRAM OXALATE 10 MG ORAL TABLET take 1 tab po qhs for mod ESCITALOPRAM OXALATE 70365327979 No Longer Active Brii Pacheco Active ALPRAZOLAM 0.25 MG ORAL TABLET 1 tablet by mouth twice a day as needed for stress/anxiety ALPRAZOLAM 03244963739 No Longer Active Brii Pacheco Active PROTONIX 40 MG ORAL TABLET DELAYED RELEASE 1 pill by m outh daily, for acid reflux PANTOPRAZOLE SODIUM 39047882957 No Longer Activ e Brii Tara Active DIFLUCAN 100 MG ORAL TABLET 1 tablet by mouth daily, R EPEAT 2ND DOSE IN 7 DAYS IF STILL SYMPTOMATIC FLUCONAZOLE 19587960081 No Long er Active Nilam Weber Active KEFLEX 500 MG ORAL CAPSULE 1 po tid CEPHALEXI N 13055943171 No Longer Active Tali Devi PA-C Active CONCEPT DHA 53.5-38-1 MG ORAL CAPSULE 1 tablet daily [id number] 3 83780181203 Active Oxana Harley INVOICE CONTROL CLERK Active AMOXICILLIN 875 MG ORAL TABLET 1 tab by mouth twice daily 1 AMOXICILLIN 73832811188 No Longer Active Brii Russ CST Active TUSSIONEX PENNKINETIC ER 10-8 MG/5ML ORAL SUSPENSION E XTENDED RELEASE 5ml po q12hr PRN Cough HYDROCOD POLST-CHLORPHEN POLST 5 9557608269 No Longer Active Myrna Roberto MD Active ZITHROMAX Z-EMIL 250 MG TABS Take two tablets today and then 1 tablet daily for 4 days AZITHROMYCIN 65274817313 No Longer Active Flaco Rosales MD Active GUAIFENESIN DM 400-20 MG ORAL TABLET 1 pill by mouth t wice daily, if needed for cough DEXTROMETHORPHAN-GUAIFENESIN 65474638472 No Longer Active Rich Rosales MD Active CEFDINIR 300 MG ORAL CAPSULE 1 po BID x 10 days CEFDINIR 28509434359 No Longer Active Jessica Heaton APRN Active CHERATUSSIN AC 100-10 MG/5ML ORAL SYRUP 1 tsp by mouth every 4 hours as needed for cough GUAIFENESIN-CODEINE 22910821064 No Longe r Active Jessica Heaton APRN Active TAMIFLU 75 MG ORAL CAPSULE 1 po BID x 5 days 0 OSELTAMIVIR PHOSPHATE 49472460054 No Longer Active Jose Zhong MD Activ e ZITHROMAX Z-EMIL 250 MG ORAL TABLET 2 today, then 1 daily for 4 d ays AZITHROMYCIN 68099774520 No Longer Active Arie Casper MD Active PROTONIX 40 MG ORAL TABLET DELAYED RELEASE 1 po q a.m. PANTOPRAZOLE SODIUM 50264260030 No Longer Active Arie Casper MD Active BACTRIM DS 800-160 MG ORAL TABLET 1 tab by mouth twice daily 201 05/02/30 TRIMETHOPRIM-SULFAMETHOXAZOLE 94255075484 No Longer Active R KELLIE Sandoval Active NEXPLANON IMPLANT right arm subcutaneously ETONOGESTREL IMPL 71704071365 No Longer Active Brii Russ APRN Active TUSSIONEX PENNKINETIC ER 10-8 MG/5ML ORAL SUSPENSION E XTENDED RELEASE 5ml po q12hr PRN Cough HYDROCOD POLST-CHLORPHEN POLST 5 9642666710 No Longer Active Brii Russ APRN Active CETIRIZINE HCL 10 MG ORAL TABLET 1 po qd PRN Allergies CETIRIZINE HCL 69919698967 No Longer Active Brii Russ APRN Activ e PREDNISONE 20 MG ORAL TABLET 2 tabs daily for 3 days, 1 tab daily for 3 days, 1/2 tab daily for 2 days PREDNISONE 10606021001 No Longer Active Arie Casper MD Active LOMOTIL 2.5-0.025 MG ORAL TABLET 1 tab po four times a day as needed for diarrhea DIPHENOXYLATE-ATROPINE 40648918886 No Lo nger Active Arie Casper MD Active ZOLOFT 50 MG ORAL TABLET 1 tablet by mouth daily 12/08 SERTRALINE HCL 14097549961 No Longer Active Arie Casper MD Ac tive NAPROXEN 500 MG ORAL TABLET Take 1 tab BID NAPR OXEN 20588913434 No Longer Active Arie Casper MD Active CEFDINIR 300 MG ORAL CAPSULE 1 po BID x 10 days CEFDINIR 13787965879 No Longer Active Brii Russ APRN Active PREDNISONE 20 MG ORAL TABLET 1 tablet daily for airway inflammat ion PREDNISONE 05240815377 No Longer Active Brii Russ APRN A ctive CEFDINIR 300 MG ORAL CAPSULE 1 po BID x 10 days CEFDINIR 19808989246 No Longer Active Jono Gagnon DO Active FLONASE 50 MCG/ACT NASAL SUSPENSION 1 spray each nostr il twice daily for allergies and runny nose until gone FLUT ICASONE PROPIONATE 27770676103 No Longer Active Jono Gagnon DO Active ALPRAZOLAM 0.25 MG ORAL TABLET 1 tablet by mouth every 8 hours as needed for stress ALPRAZOLAM 39687375812 No Longer Active Jono Gagnon DO Active ZITHROMAX Z-EMIL 250 MG ORAL TABLET 2 today, then 1 daily for 4 d ays AZITHROMYCIN 92012223627 No Longer Active Arie Casper MD Active PREDNISONE 20 MG ORAL TABLET 2 tabs daily for 3 days, 1 tab daily for 3 days, 1/2 tab daily for 2 days PREDNISONE 09540933860 No Longer Active Brii Russ APRN Active PREDNISONE 20 MG ORAL TABLET 1 tablet twice daily for 2 days, then 1 tablet once daily for 2 days PREDNISONE 53713597572 No Longer Active Brii Russ APRN Active PROMETHAZINE HCL 12.5 MG ORAL TABLET 1 tablet by mouth every 6 hours as needed for nausea/vomiting PROMETHAZINE HCL 84315316779 No L onger Active Jono Gagnon DO Active CITRATE OF MAGNESIA ORAL SOLUTION 1 bottle today for constipatio n MAGNESIUM CITRATE 06684358943 No Longer Active Jono Gagnon DO Active ZOFRAN 4 MG ORAL TABLET 1 TAB PO Q 6 HRS PRN NAUSEA 20 07/10/15 ONDANSETRON HCL 68871337266 No Longer Active Brii Russ APRN Acti ve LOMOTIL 2.5-0.025 MG ORAL TABLET 1 to 2 four times a day as needed for diarrhea DIPHENOXYLATE-ATROPINE 62797978900 No Longer Active January Russ APRN Active AMOXICILLIN 500 MG ORAL TABLET 2 tabs twice a day for 10 days 20 07/09/11 AMOXICILLIN 35677635735 No Longer Active Brii Russ APRN Active CYCLOBENZAPRINE HCL 10 MG ORAL TABLET 1/2 - 1 tablet b y mouth three times daily as needed for muscle spasm/pain CYCLOBENZAPRINE HCL 90390597812 No Longer Active Arie Casper MD Active LOMOTIL 2.5-0.025 MG ORAL TABLET 1 to 2 four times a day as needed for diarrhea DIPHENOXYLATE-ATROPINE 74152960842 No Longer Active Fozia Casper MD Active MACROBID 100 MG ORAL CAPSULE 1 cap by mouth twice daily NITROFURANTOIN MONOHYD MACRO 29338694118 No Longer Active Arie Casper MD Active ZYRTEC ALLERGY 10 MG ORAL CAPSULE 1 po qd CE TIRIZINE HCL 88114314947 No Longer Active Arie Casper MD Active AZITHROMYCIN 250 MG ORAL TABLET 2 po qd x 1 day, then 1 po q d x 4 days AZITHROMYCIN 42632739652 No Longer Active Jillina Fra naomi CST Active PREDNISONE 20 MG ORAL TABLET 2 tabs daily for 3 days, 1 tab daily for 3 days, 1/2 tab daily for 2 days PREDNISONE 07140295809 No Longer Active Jillina Fradeepl CST Active PROMETHAZINE HCL 25 MG ORAL TABLET 1 four times a day as nee ded for vomiting PROMETHAZINE HCL 55085942101 No Longer Active Myrna Roberto MD Active BACTRIM DS 800-160 MG ORAL TABLET 1 twice a day 05/30 SULFAMETHOXAZOLE-TRIMETHOPRIM 67497224197 No Longer Active Myrna Roberto MD Active VICKS DAYQUIL SEVERE COLD/FLU TABLET 1 tab every 6 hours prn 201 02/22/17 [id number] TABS 50242214641 No Longer Active K fany Roberto MD Active GUAIFENESIN-CODEINE 100-10 MG/5ML ORAL SYRUP 2 tsp every 6 hours prn GUAIFENESIN-CODEINE 98972618544 No Longer Active Myrna Roberto MD Active NAPROXEN 500 MG ORAL TABLET one tab PO BID NAPR OXEN 80175994196 No Longer Active Myrna Roberto MD Active AUGMENTIN 875-125 MG ORAL TABLET 1 tab by mouth twice daily with food AMOXICILLIN-POT CLAVULANATE 98497367062 No Longer Act zaid Liliana Estrada MD PhD Active AMOXICILLIN 500 MG ORAL CAPSULE 1 tab by mouth 3 times daily 201 02/21/05 AMOXICILLIN 78033463493 No Longer Active Liliana Estrada MD PhD Active TESSALON PERLES 100 MG ORAL CAPSULE 1 tablet by mouth 3 times da cory BENZONATATE 62900878682 No Longer Active Liliana Estrada MD PhD Active FLAGYL 500 MG ORAL TABLET 1 tablet by mouth two times daily 2014 METRONIDAZOLE 43324796183 No Longer Active Nilam Doran tive ZITHROMAX 250 MG ORAL TABLET 2 po today, then 1 po q days 2-5 20 06/08/16 AZITHROMYCIN 52975589338 No Longer Active Arie Casper MD Active VITAMINS 0.8 MG ORAL TABLET take 1 tab po qday [id number] 81182798384 No Longer Active Arie Casper MD Active IBUPROFEN 800 MG ORAL TABLET take one po Q 8 hours 201 02/01/16 IBUPROFEN 62534763766 No Longer Active Arie Casper MD Acti ve [facility] TUSSIN COUGH/COLD CF 5-10-100 MG/5ML ORAL LIQUID 2 teasp oons every 4 hours [id number] 56158652221 No Longer Active Blaine Casper MD Active COMTREX COLD/COUGH DAY/NITE MS 5-2-10-325 MG ORAL 2 caps deja ry 4 hours [id number] 33987892488 No Longer Active Landon Casper MD Active CHLORASEPTIC MAX SORE THROAT 15-10 MG MOUTH/THROAT LOZENGE 1 every 2 hours prn BENZOCAINE-MENTHOL 51831892898 No Longer Active Arie Casper MD Active PREDNISONE 20 MG ORAL TABLET 2 tabs daily for 3 days, 1 tab daily for 3 days, 1/2 tab daily for 2 days PREDNISONE 16379737857 No Longer Active Jose Zhong MD Active AZITHROMYCIN 250 MG ORAL TABLET 2 po qd x 1 day, then 1 po q d x 4 days AZITHROMYCIN 49843371550 No Longer Active Jose Mcwilliams MD Active ZOFRAN ODT 4 MG ORAL TABLET DISINTEGRATING 1 po q6hr PRN Nausea ONDANSETRON 85817529197 No Longer Active Rich Rosales MD Active ZOFRAN 4 MG ORAL TABLET 1 tablet every 4 hours ONDANSETRON HCL 73697273524 No Longer Active Rich Rosales MD Activ e MUCINEX 600 MG ORAL TABLET EXTENDED RELEASE 12 HOUR Ta ke 1-2 tablets every 12 hours GUAIFENESIN 47501113217 No Longer Active Rich Rosales MD Active BACTRIM 400-80 MG ORAL TABLET take one po BID SULFAMETHOXAZOLE-TRIMETHOPRIM 77099974364 No Longer Active Abelardo HERNANDEZ Active AZITHROMYCIN 500 MG ORAL TABLET 1 PO q day x 6 days 20 03/02/23 AZITHROMYCIN 28010224182 No Longer Active Tin HERNANDEZ Activ e ZITHROMAX 250 MG ORAL TABLET 2 po today, then 1 po q days 2-5 20 10/03/08 AZITHROMYCIN 10662264597 No Longer Active Arie Casper MD Active ZITHROMAX 250 MG ORAL TABLET 2 po today, then 1 po q days 2-5 20 09/23/25 AZITHROMYCIN 10480109526 No Longer Active Arie Casper MD Active AMOXICILLIN 500 MG ORAL CAPSULE 1 tab by mouth 3 times daily 201 11/24/09 AMOXICILLIN 59837284535 No Longer Active Arie Casper MD Active BACTRIM DS 800-160 MG ORAL TABLET 1 tab by mouth twice daily 201 11/03/14 TRIMETHOPRIM-SULFAMETHOXAZOLE 83760120084 No Longer Active Fozia Casper MD Active AMOXICILLIN 500 MG ORAL TABLET take 1 tab po TID 08/05 AMOXICILLIN 72000839706 No Longer Active Arie Casper MD Acti [...] 4 hours ZOFRAN 4 MG ORAL TABLET 751913 ONDANSETRON HCL Inactive ZOFRAN ODT 4 MG [...] COLD/COUGH DAY/NITE MS 5-2-10-325 MG ORA L [id number] Inactive [facility] TUSSIN COUGH/COLD CF 5-10-100 MG/5ML ORAL LIQUID 2 teasp oons every 4 hours [facility] TUSSIN COUGH/COLD CF 5-10-100 MG/5ML ORAL LI QUID [id number] Inactive IBUPROFEN 800 MG ORAL TABLET take one po Q 8 hours 201 02/01/16 IBUPROFEN 800 MG ORAL TABLET IBUPROFEN Inactive VITAMINS 0.8 MG ORAL TABLET take 1 tab po qday VITAMINS 0.8 MG ORAL TABLET [id number] E-FA Inactive TESSALON PERLES 100 MG ORAL CAPSULE 1 tablet by mouth 3 times da cory TESSALON PERLES 100 MG ORAL CAPSULE 19730630 BENZONATATE Inactive AMOXICILLIN 500 MG ORAL CAPSULE 1 tab by mouth 3 times daily 201 02/21/05 AMOXICILLIN 500 MG ORAL CAPSULE 291734 AMOXICILLIN Inactive GUAIFENESIN-CODEINE 100-10 MG/5ML ORAL SYRUP 2 tsp every 6 hours prn GUAIFENESIN-CODEINE 100-10 MG/5ML ORAL SYRUP 384289 GUAIFENESIN-CODEINE Inactive VICKS DAYQUIL SEVERE COLD/FLU TABLET 1 tab every 6 hours prn 201 02/22/17 VICKS DAYQUIL SEVERE COLD/FLU TABLET PHENYLEPHRI [id number]-APAP TABS Inactive BACTRIM DS 800-160 MG ORAL TABLET 1 twice a day 05/30 BACTRIM DS 800-160 MG ORAL TABLET 663131 SULFAMETHOXAZOLE-TRIMETHOPRIM Inactiv e PROMETHAZINE HCL 25 MG ORAL TABLET 1 four times a day as nee ded for vomiting PROMETHAZINE HCL 25 MG ORAL TABLET 140150 PROMETHAZINE HCL Inactive ZYRTEC ALLERGY 10 MG ORAL CAPSULE 1 po qd ZYRTEC ALLERGY 10 MG ORAL CAPSULE CETIRIZINE HCL Inactive MACROBID 100 MG ORAL CAPSULE 1 cap by mouth twice daily MACROBID 100 MG ORAL CAPSULE 0504881 NITROFURANTOIN MONOHYD MACRO In active LOMOTIL 2.5-0.025 MG ORAL TABLET 1 to 2 four times a day as needed for diarrhea LOMOTIL 2.5-0.025 MG ORAL TABLET 8671370 DIPHENOXYLATE-ATROPINE Inactive CYCLOBENZAPRINE HCL 10 MG ORAL TABLET 1/2 - 1 tablet b y mouth three times daily as needed for muscle spasm/pain CYCLOBEN ZAPRINE HCL 10 MG ORAL TABLET 297446 CYCLOBENZAPRINE HCL Inactive AMOXICILLIN 500 MG ORAL TABLET 2 tabs twice a day for 10 days 20 07/09/11 AMOXICILLIN 500 MG ORAL TABLET 385087 AMOXICILLIN I nactive LOMOTIL 2.5-0.025 MG ORAL TABLET 1 to 2 four times a day as needed for diarrhea LOMOTIL 2.5-0.025 MG ORAL TABLET 1611088 DIPHENOXYLATE-ATROPINE Inactive ZOFRAN 4 MG ORAL TABLET 1 TAB PO Q 6 HRS PRN NAUSEA 20 07/10/15 ZOFRAN 4 MG ORAL TABLET 121941 ONDANSETRON HCL Inactive CITRATE OF MAGNESIA ORAL SOLUTION 1 bottle today for constipatio n CITRATE OF MAGNESIA ORAL SOLUTION 5072952 MAGNESIUM CITR ATE Inactive PROMETHAZINE HCL 12.5 MG ORAL TABLET 1 tablet by mouth every 6 hours as needed for nausea/vomiting PROMETHAZINE HCL 12.5 MG ORA L TABLET 442190 PROMETHAZINE HCL Inactive PREDNISONE 20 MG ORAL TABLET 1 tablet twice daily for 2 days, then 1 tablet once daily for 2 days PREDNISONE 20 MG ORAL TABLET 143214 PREDNISONE Inactive ALPRAZOLAM 0.25 MG ORAL TABLET 1 tablet by mouth every 8 hours as needed for stress ALPRAZOLAM 0.25 MG ORAL TABLET 921802 ALPRA ZOLAM Inactive FLONASE 50 MCG/ACT NASAL SUSPENSION 1 spray each nostr il twice daily for allergies and runny nose until gone FLON ASE 50 MCG/ACT NASAL SUSPENSION 0145397 FLUTICASONE PROPIONATE Inactive PREDNISONE 20 MG ORAL TABLET 1 tablet daily for airway inflammat ion PREDNISONE 20 MG ORAL TABLET 351558 PREDNISONE [place] ctive NAPROXEN 500 MG ORAL TABLET Take 1 tab BID NAPROXEN 500 MG ORAL TABLET 464568 NAPROXEN Inactive ZOLOFT 50 MG ORAL TABLET 1 tablet by mouth daily 12/08 ZOLOFT 50 MG ORAL TABLET 066343 SERTRALINE HCL Inactive LOMOTIL 2.5-0.025 MG ORAL TABLET 1 tab po four times a day as needed for diarrhea LOMOTIL 2.5-0.025 MG ORAL TABLET 0318284 DIPHENOXYLATE-ATROPINE Inactive CETIRIZINE HCL 10 MG ORAL TABLET 1 po qd PRN Allergies CETIRIZINE HCL 10 MG ORAL TABLET 8628635 CETIRIZINE HCL Inactiv e TUSSIONEX PENNKINETIC ER 10-8 MG/5ML ORAL SUSPENSION E XTENDED RELEASE 5ml po q12hr PRN Cough TUSSIONEX PENNKINETI C ER 10-8 MG/5ML ORAL SUSPENSION EXTENDED RELEASE HYDROCOD POLST-CHLORPHEN POLST I nactive NEXPLANON IMPLANT right arm subcutaneously NEXPLANON IMPLANT ETONOGESTREL IMPL Inactive PROTONIX 40 MG ORAL TABLET DELAYED RELEASE 1 po q a.m. PROTONIX 40 MG ORAL TABLET DELAYED RELEASE 143313 PANTOPRAZOLE SODI UM Inactive CHERATUSSIN AC 100-10 MG/5ML ORAL SYRUP 1 tsp by mouth every 4 hours as needed for cough CHERATUSSIN AC 100-10 MG/5ML ORAL SYRUP 9 41917 GUAIFENESIN-CODEINE Inactive GUAIFENESIN DM 400-20 MG ORAL [...] tid K EFLEX 500 MG ORAL CAPSULE 186651 CEPHALEXIN Inactive DIFLUCAN 100 MG ORAL TABLET 1 tablet by mouth daily, R EPEAT 2ND DOSE IN 7 DAYS IF STILL SYMPTOMATIC DIFLUCAN 100 MG ORAL TABLET 26786 8 FLUCONAZOLE Inactive PROTONIX 40 MG ORAL TABLET DELAYED RELEASE 1 pill by m outh daily, for acid reflux PROTONIX 40 MG ORAL TABLET DELAYED RELEAS E 690636 PANTOPRAZOLE SODIUM Inactive ALPRAZOLAM 0.25 MG ORAL TABLET 1 tablet by mouth twice a day as needed for stress/anxiety ALPRAZOLAM 0.25 MG ORAL TABLET 794700 ALPRAZOLAM Inactive ESCITALOPRAM OXALATE 10 MG ORAL TABLET take 1 tab po qhs for mod ESCITALOPRAM OXALATE 10 MG ORAL TABLET 578784 ESCITALOP JO OXALATE Inactive AMOXICILLIN 500 MG ORAL TABLET take 1 tab po TID 08/05 AMOXICILLIN 500 MG ORAL TABLET 368634 AMOXICILLIN Inactive AMOXICILLIN 500 MG ORAL CAPSULE 1 tab by mouth 3 times daily 201 11/24/09 AMOXICILLIN 500 MG ORAL CAPSULE 712466 AMOXICILLIN Inactive ZITHROMAX 250 MG ORAL TABLET 2 po today, then 1 po q days 2-5 20 09/23/25 ZITHROMAX 250 MG ORAL TABLET 244689 AZITHROMYCIN [place] ctive ZITHROMAX 250 MG ORAL TABLET 2 po today, then 1 po q days 2-5 20 10/03/08 ZITHROMAX 250 MG ORAL TABLET 628679 AZITHROMYCIN Arlen ctive AZITHROMYCIN 500 MG ORAL TABLET 1 PO q day x 6 days 20 03/02/23 AZITHROMYCIN 500 MG ORAL TABLET 1394278 AZITHROMYCIN Inactive BACTRIM 400-80 MG ORAL TABLET take one po BID BACTRIM 400- 80 MG ORAL TABLET 659636 SULFAMETHOXAZOLE-TRIMETHOPRIM Inactive AZITHROMYCIN 250 MG ORAL TABLET 2 po qd x 1 day, then 1 po q d x 4 days AZITHROMYCIN 250 MG ORAL TABLET 683576 AZITHROMY ALLISON Inactive PREDNISONE 20 MG ORAL TABLET 2 tabs daily for 3 days, 1 tab daily for 3 days, 1/2 tab daily for 2 days PREDNISONE 20 MG ORAL T ABLET 359259 PREDNISONE Inactive ZITHROMAX 250 MG ORAL TABLET 2 po today, then 1 po q days 2-5 20 06/08/16 ZITHROMAX 250 MG ORAL TABLET 100547 AZITHROMYCIN Arlen ctive FLAGYL 500 MG ORAL TABLET 1 tablet by mouth two times daily 2014 FLAGYL 500 MG ORAL TABLET 173963 METRONIDAZOLE Inacti ve AUGMENTIN 875-125 MG ORAL TABLET 1 tab by mouth twice daily with food AUGMENTIN 875-125 MG ORAL TABLET 980939 AMOXICIL ELSA-POT CLAVULANATE Inactive NAPROXEN 500 MG ORAL TABLET one tab PO BID NAPROXEN 500 MG ORAL TABLET 311952 NAPROXEN Inactive PREDNISONE 20 MG ORAL TABLET 2 tabs daily for 3 days, 1 tab daily for 3 days, 1/2 tab daily for 2 days PREDNISONE 20 MG ORAL T ABLET 436630 PREDNISONE Inactive AZITHROMYCIN 250 MG ORAL TABLET 2 po qd x 1 day, then 1 po q d x 4 days AZITHROMYCIN 250 MG ORAL TABLET 709632 AZITHROMY ALLISON Inactive PREDNISONE 20 MG ORAL TABLET 2 tabs daily for 3 days, 1 tab daily for 3 days, 1/2 tab daily for 2 days PREDNISONE 20 MG ORAL T ABLET 521101 PREDNISONE Inactive ZITHROMAX Z-EMIL 250 MG ORAL TABLET 2 today, then 1 daily for 4 d ays ZITHROMAX Z-EMIL 250 MG ORAL TABLET 057632 AZITHROMYCIN Inactive CEFDINIR 300 MG ORAL CAPSULE 1 po BID x 10 days 12/18 CEFDINIR 300 MG ORAL CAPSULE 539060 CEFDINIR Inactive CEFDINIR 300 MG ORAL CAPSULE 1 po BID x 10 days CEFDINIR 300 MG ORAL CAPSULE 459054 CEFDINIR Inactive PREDNISONE 20 MG ORAL TABLET 2 tabs daily for 3 days, 1 tab daily for 3 days, 1/2 tab daily for 2 days PREDNISONE 20 MG ORAL T ABLET 431777 PREDNISONE Inactive BACTRIM DS 800-160 MG ORAL TABLET 1 tab by mouth twice daily 201 05/02/30 BACTRIM DS 800-160 MG ORAL TABLET 811926 TRIMETHOPRIM-SULFAMETHOXAZOLE Inactive ZITHROMAX Z-EMIL 250 MG ORAL TABLET 2 today, then 1 daily for 4 d ays ZITHROMAX Z-EMIL 250 MG ORAL TABLET 225104 AZITHROMYCIN Inactive TAMIFLU 75 MG ORAL CAPSULE 1 po BID x 5 days 0 TAMIFLU 75 MG ORAL CAPSULE 044751 OSELTAMIVIR PHOSPHATE Inactive CEFDINIR 300 MG ORAL CAPSULE 1 po BID x 10 days 0 3/13 CEFDINIR 300 MG ORAL CAPSULE 20030127 CEFDINIR Inactive ZITHROMAX Z-EMIL 250 MG TABS Take two tablets today and then 1 tablet daily for 4 days ZITHROMAX Z-EMIL 250 MG TABS 155644 AZITHROM YCIN Inactive AMOXICILLIN 875 MG ORAL TABLET 1 tab by mouth twice daily AMOXICILLIN 875 MG ORAL TABLET 698157 AMOXICILLIN Inactive Advance Directives Directive Description Start [...] 11 .0-15.0 platelet count 280 THOUSAND/UL 10*3/mm3 715-119 9883/02/18 mean platelet volume 11.6 fL 7.5-12.5 Lab [...] 11 .6-14.8 platelet count 297 10^3/MM^3 10*3/mm3 891-332 4893/09/27 neutrophils as percent of blood leukocytes 55.9 [...] semiquantitative (dipstick) 0.2 pH, urine, semiquantitative 5 Encounters Code Encounter Date Provider Facility [facility]-89769 [id number] Vst-Est Level IV 13:45:[address] Tali Devi PA-C [facility]-14788 32245-Qpf Vst-Est Level III 09:41:31 CDT Arie Casper MD [facility]-42488 41538-Ijp Vst-Est Level III 18:20:11 [facility]1975-Lqv Vst-Est Level III 17:21:[address] [facility]29443 64192-Hbh Vst-Est Level IV 13:30:22 C NIC Casper MD [facility]-10289 Level 4 Est. Patient 13:05:26 CDT Myrna maldonado MD [facility]-40381 91263-Lcf Vst-Est Level IV 20:50:21 C NIC Casper MD [facility]-28874 Level 3 Est. Patient 11:49:34 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MARKET ANALYSIS Jessica boyd CST [facility] CPT-60314 Level 3 Est. Patient 14:55:50 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MARKET ANALYSIS Jose Zhong MD [facility] CPT-66966 Level 3 Est. Patient 10:21:41 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MARKET ANALYSIS Arie mcqueen MD [facility] CPT-64390 Level 3 Est. Patient 11:35:15 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MARKET ANALYSIS Arie mcqueen MD [facility] CPT-02326 Level 3 Est. Patient 15:40:28 CDT Brii Are ll [facility] CPT-72735 Level 3 Est. Patient 16:40:36 CDT Arie mcqueen MD [facility] CPT-33099 Level 4 Est. Patient 15:29:22 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MARKET ANALYSIS Arie mcqueen MD [facility] CPT-37602 Level 3 Est. Patient 15:18:16 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MARKET ANALYSIS Jono black [facility] CPT-79918 Level 4 Est. Patient 12:08:40 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MARKET ANALYSIS Brii Are [facility] CPT-75928 Level 3 Est. Patient 09:24:42 CDT Brii Are [facility] CPT-55252 Level 3 Est. Patient 09:12:56 CDT Arie mcqueen MD [facility] CPT-14980 Level 3 Est. Patient 16:40:54 CDT Jose Zhong MD [facility] CPT-81822 Level 2 Est. Patient 13:01:13 CDT Brii Are ll [facility] CPT-38954 Level 3 Est. Patient 11:55:30 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MARKET ANALYSIS Jono black [facility] CPT-02346 Level 3 Est. Patient 09:52:36 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MARKET ANALYSIS Brii Are ll [facility] CPT-97739 Level 3 Est. Patient 16:25:33 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MARKET ANALYSIS Rich Rosales MD [facility] CPT-22679 Level 3 Est. Patient 20:33:55 CDT Arie mcqueen MD [facility] CPT-28982 Level 3 Est. Patient 14:18:20 CDT Rich Rosales MD [facility] CPT-84823 Level 4 Est. Patient 09:34:31 CDT Arie mcqueen MD [facility] CPT-88628 Level 3 Est. Patient 09:08:55 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MARKET ANALYSIS Liliana vincent MD PhD [facility] CPT-30903 Level 3 Est. Patient 16:44:07 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MARKET ANALYSIS Arie mcqueen MD [facility] CPT-03682 Level 3 Est. Patient 10:44:27 CDT Arie mcqueen MD [facility] CPT-13839 Level 3 Est. Patient 08:55:41 CDT Jose Zhong MD [facility] CPT-52004 Level 3 Est. Patient 18:37:31 CDT Liliana vincent MD PhD [facility] CPT-61763 Level 3 Est. Patient 14:28:23 CDT Abelardo HERNANDEZ [facility] CPT-96263 Level 3 Est. Patient 15:18:13 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MARKET ANALYSIS Arie mcqueen MD [facility] CPT-42738 Level 3 Est. Patient 10:11:29 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MARKET ANALYSIS Arie mcqueen MD [facility] CPT-58216 Level 3 Est. Patient 10:55:57 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MARKET ANALYSIS Jono black DO [facility] CPT-70309 Level 3 Est. Patient 17:29:05 CDT Arie mcqueen MD [facility] Procedures Code Procedure Name Date Entry Date Standard Desc ription CPT-56256 Sono OB transvag XRAY USE ONLY 17:11:12 CS T CPT-15472 UHCG Urine - MARC ONLY 12:13:59 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MARKET ANALYSIS 12/11 CPT-81297 Spec Collection and Handling Fee 12:13:[address] CPT-67485 Visit 12:13:59 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MARKET ANALYSIS CPT-71444 First Vx - Ix admin via ID I M or jet injects without counseling by physician 13:00:15 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MARKET ANALYSIS CPT-85226 Flulaval Intramuscular Injectable 13:00:15 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MARKET ANALYSIS CPT-25443 Urine Dip (Floor Use Only) 12:20:20 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MARKET ANALYSIS 201 06/03/24 CPT-41159 Sono Soft Tissue Head and Neck - XRAY US E ONLY 17:10:14 CDT CPT-30006 Ear Wash with irrigation 17:21:41 CDT 07/04 CPT-46308 Nexplanon Removal 15:40:28 CDT CPT-46303 Sono transvag pelvis non OB uterus ovari es cervix - XRAY USE ONLY 08:58:14 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MARKET ANALYSIS CPT-53778 UA w micro - LAB USE ONLY 16:04:56 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MARKET ANALYSIS 2015 CPT-55045 Wet Prep/GEN - LAB USE ONLY 16:04:56 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MARKET ANALYSIS 20 08/10/29 CPT-06299 First Vx - Ix admin via ID I M or jet injects without counseling by physician 16:57:10 CDT CPT-62608 Fluzone Preservative Free Intramuscular Suspension 16:57:10 CDT CPT-J0696 Rocephin 1000 mg (Ceftriaxone) 11:49:23 CDT CPT-J1040 Depo Medrol 80 mg (Methyl Prednisolone A cetate) 11:49:23 CDT CPT-J1100 Decadron 8mg (Dexamethasone) 11:49:23 CDT 2 CPT-40315 Abx/Therapy Injection 11:49:23 CDT CPT-03857 Abx/Therapy Injection 11:49:23 CDT CPT-96985 Abd compl w upright 09:07:26 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MARKET ANALYSIS CPT-45864 Ear Wash 16:12:47 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MARKET ANALYSIS CPT-OV Office Visit 11:12:01 CDT CPT-OV Office Visit 15:30:23 CDT CPT-19886 Sono pelvis non OB uterus ovaries cervix 15:50:44 CDT CPT-23627 Hand comp min 3V 16:42:32 CDT CPT-11710 Abd compl w upright 12:17:01 CDT CPT-77687 Nexplanon Placement 15:07:39 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MARKET ANALYSIS CPT-46314 Removal of IUD 15:07:39 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MARKET ANALYSIS CPT-16929 TB Tubersol 12:09:32 CDT CPT-74433 TB Tubersol 13:55:43 CDT
--- OUTSIDE RECORDS SUMMARY | 2020-03-03 07:00 | XMS REPORT | Clinical Summary ---
Author Author Admin, Diamante Marcelo Organization [facility] Address Unknown Phone Unavailable Allergies, Adverse [...] implantable subdermal contraceptiv e Active Brii Russ BUMP GRADER OPERATOR Vaginal bleeding 623.8 Active Arie Casper MD Other specified noninflammatory disorders of vagina Influenza like illness 487.1 Active Jose Mcwilliams MD Influenza with other respiratory manifestations Sinusitis 473.9 Active Jessica Heaton BUMP GRADER OPERATOR Unspecified sinusitis (chronic) Other mixed anxiety [...] Cerumen impaction, bilateral 380.4 Active Brii Russ BUMP GRADER OPERATOR Impacted cerumen Tonsillar enlargement 474.11 Active Brii Yepezboris BUMP GRADER OPERATOR Hypertrophy of tonsils alone Influenza Vaccination for Prophylaxis V04.81 Inactive Brii Russ BUMP GRADER OPERATOR Need for prophylactic vaccin ation and inoculation against influenza Submandibular lymph node 785.6 Active Brii escalante BUMP GRADER OPERATOR Enlargement of lymph nodes Influenza Vaccination [...] 3-4 times per day 12/11 PYRIDOXINE HCL 62941461008 Active Myrna Roberto MD Active UNISOM SLEEPTABS 25 MG ORAL TABLET one tab PO qhs DOXYLAMINE SUCCINATE (SLEEP) 64888008420 Active Myrna Roberto MD Active TYLENOL 325 MG ORAL CAPSULE PRN ACETAMINOPHEN 000 91568544 Active Brii Pacheco Active ESCITALOPRAM OXALATE 10 MG ORAL TABLET take 1 tab po qhs for mod ESCITALOPRAM OXALATE 47894472371 No Longer Active Brii Pacheco Active ALPRAZOLAM 0.25 MG ORAL TABLET 1 tablet by mouth twice a day as needed for stress/anxiety ALPRAZOLAM 95705697025 No Longer Active Brii Pacheco Active PROTONIX 40 MG ORAL TABLET DELAYED RELEASE 1 pill by m outh daily, for acid reflux PANTOPRAZOLE SODIUM 68471343801 No Longer Activ e Brii Chewna Active DIFLUCAN 100 MG ORAL TABLET 1 tablet by mouth daily, R EPEAT 2ND DOSE IN 7 DAYS IF STILL SYMPTOMATIC FLUCONAZOLE 50626485705 No Long er Active Nilam Weber Active KEFLEX 500 MG ORAL CAPSULE 1 po tid CEPHALEXI N 30157577526 No Longer Active Tali Devi PA-C Active CONCEPT DHA 53.5-38-1 MG ORAL CAPSULE 1 tablet daily [id number] 3 97524577978 Active Oxana Souza LPN Active AMOXICILLIN 875 MG ORAL TABLET 1 tab by mouth twice daily 1 AMOXICILLIN 43681762075 No Longer Active Brii Russ APRN Active TUSSIONEX PENNKINETIC ER 10-8 MG/5ML ORAL SUSPENSION E XTENDED RELEASE 5ml po q12hr PRN Cough HYDROCOD POLST-CHLORPHEN POLST 5 4352557337 No Longer Active Myrna Roberto MD Active ZITHROMAX Z-EMIL 250 MG TABS Take two tablets today and then 1 tablet daily for 4 days AZITHROMYCIN 91665420006 No Longer Active Flaco Rosales MD Active GUAIFENESIN DM 400-20 MG ORAL TABLET 1 pill by mouth t wice daily, if needed for cough DEXTROMETHORPHAN-GUAIFENESIN 35748917120 No Longer Active Rich Rosales MD Active CEFDINIR 300 MG ORAL CAPSULE 1 po BID x 10 days CEFDINIR 65480805214 No Longer Active Jessica Heaton APRN Active CHERATUSSIN AC 100-10 MG/5ML ORAL SYRUP 1 tsp by mouth every 4 hours as needed for cough GUAIFENESIN-CODEINE 41278870350 No Longe r Active Jessica Heaton APRN Active TAMIFLU 75 MG ORAL CAPSULE 1 po BID x 5 days 0 OSELTAMIVIR PHOSPHATE 57589072767 No Longer Active Jose Zhong MD Activ e ZITHROMAX Z-EMIL 250 MG ORAL TABLET 2 today, then 1 daily for 4 d ays AZITHROMYCIN 10035796348 No Longer Active Arie Casper MD Active PROTONIX 40 MG ORAL TABLET DELAYED RELEASE 1 po q a.m. PANTOPRAZOLE SODIUM 61100538489 No Longer Active Arie Casper MD Active BACTRIM DS 800-160 MG ORAL TABLET 1 tab by mouth twice daily 201 05/02/30 TRIMETHOPRIM-SULFAMETHOXAZOLE 14340179392 No Longer Active R uth Ty, RMA Active NEXPLANON IMPLANT right arm subcutaneously ETONOGESTREL IMPL 63767464427 No Longer Active Brii Russ APRN Active TUSSIONEX PENNKINETIC ER 10-8 MG/5ML ORAL SUSPENSION E XTENDED RELEASE 5ml po q12hr PRN Cough HYDROCOD POLST-CHLORPHEN POLST 5 6714573904 No Longer Active Brii Russ APRN Active CETIRIZINE HCL 10 MG ORAL TABLET 1 po qd PRN Allergies CETIRIZINE HCL 93887589574 No Longer Active Brii Russ APRN Activ e PREDNISONE 20 MG ORAL TABLET 2 tabs daily for 3 days, 1 tab daily for 3 days, 1/2 tab daily for 2 days PREDNISONE 50967781794 No Longer Active Arie Casper MD Active LOMOTIL 2.5-0.025 MG ORAL TABLET 1 tab po four times a day as needed for diarrhea DIPHENOXYLATE-ATROPINE 33639904846 No Lo nger Active Arie Casper MD Active ZOLOFT 50 MG ORAL TABLET 1 tablet by mouth daily 12/08 SERTRALINE HCL 85452858466 No Longer Active Arie Casper MD Ac tive NAPROXEN 500 MG ORAL TABLET Take 1 tab BID NAPR OXEN 01247772949 No Longer Active Arie Casper MD Active CEFDINIR 300 MG ORAL CAPSULE 1 po BID x 10 days CEFDINIR 23033897376 No Longer Active Brii Russ APRN Active PREDNISONE 20 MG ORAL TABLET 1 tablet daily for airway inflammat ion PREDNISONE 48530043608 No Longer Active Brii Russ APRN A ctive CEFDINIR 300 MG ORAL CAPSULE 1 po BID x 10 days CEFDINIR 71914669218 No Longer Active Jono Gagnon DO Active FLONASE 50 MCG/ACT NASAL SUSPENSION 1 spray each nostr il twice daily for allergies and runny nose until gone FLUT ICASONE PROPIONATE 76256972777 No Longer Active Jono Gagnon DO Active ALPRAZOLAM 0.25 MG ORAL TABLET 1 tablet by mouth every 8 hours as needed for stress ALPRAZOLAM 25301304497 No Longer Active Jono Gagnon DO Active ZITHROMAX Z-EMIL 250 MG ORAL TABLET 2 today, then 1 daily for 4 d ays AZITHROMYCIN 96965202013 No Longer Active Arie Casper MD Active PREDNISONE 20 MG ORAL TABLET 2 tabs daily for 3 days, 1 tab daily for 3 days, 1/2 tab daily for 2 days PREDNISONE 03842894497 No Longer Active Brii Russ APRN Active PREDNISONE 20 MG ORAL TABLET 1 tablet twice daily for 2 days, then 1 tablet once daily for 2 days PREDNISONE 18700813706 No Longer Active Brii Russ APRN Active PROMETHAZINE HCL 12.5 MG ORAL TABLET 1 tablet by mouth every 6 hours as needed for nausea/vomiting PROMETHAZINE HCL 00650763252 No L onger Active Jono Gagnon DO Active CITRATE OF MAGNESIA ORAL SOLUTION 1 bottle today for constipatio n MAGNESIUM CITRATE 87262152804 No Longer Active Jono Gagnon DO Active ZOFRAN 4 MG ORAL TABLET 1 TAB PO Q 6 HRS PRN NAUSEA 20 07/10/15 ONDANSETRON HCL 90099463745 No Longer Active Brii Russ APRN Acti ve LOMOTIL 2.5-0.025 MG ORAL TABLET 1 to 2 four times a day as needed for diarrhea DIPHENOXYLATE-ATROPINE 18178791804 No Longer Active January Russ APRN Active AMOXICILLIN 500 MG ORAL TABLET 2 tabs twice a day for 10 days 20 07/09/11 AMOXICILLIN 90173348369 No Longer Active Brii Russ APRN Active CYCLOBENZAPRINE HCL 10 MG ORAL TABLET 1/2 - 1 tablet b y mouth three times daily as needed for muscle spasm/pain CYCLOBENZAPRINE HCL 77930879515 No Longer Active Arie Casper MD Active LOMOTIL 2.5-0.025 MG ORAL TABLET 1 to 2 four times a day as needed for diarrhea DIPHENOXYLATE-ATROPINE 74019410081 No Longer Active Fozia Casper MD Active MACROBID 100 MG ORAL CAPSULE 1 cap by mouth twice daily NITROFURANTOIN MONOHYD MACRO 83036716205 No Longer Active Arie Casper MD Active ZYRTEC ALLERGY 10 MG ORAL CAPSULE 1 po qd CE TIRIZINE HCL 28490893379 No Longer Active Arie Casper MD Active AZITHROMYCIN 250 MG ORAL TABLET 2 po qd x 1 day, then 1 po q d x 4 days AZITHROMYCIN 61736751177 No Longer Active Jillina Fra naomi BUMP GRADER OPERATOR Active PREDNISONE 20 MG ORAL TABLET 2 tabs daily for 3 days, 1 tab daily for 3 days, 1/2 tab daily for 2 days PREDNISONE 99503459142 No Longer Active Jillina Frazell BUMP GRADER OPERATOR Active PROMETHAZINE HCL 25 MG ORAL TABLET 1 four times a day as nee ded for vomiting PROMETHAZINE HCL 26142558964 No Longer Active Myrna Roberto MD Active BACTRIM DS 800-160 MG ORAL TABLET 1 twice a day 05/30 SULFAMETHOXAZOLE-TRIMETHOPRIM 40320617993 No Longer Active Myrna Roberto MD Active VICKS DAYQUIL SEVERE COLD/FLU TABLET 1 tab every 6 hours prn 201 02/22/17 [id number] TABS 91474767633 No Longer Active Chris Roberto MD Active GUAIFENESIN-CODEINE 100-10 MG/5ML ORAL SYRUP 2 tsp every 6 hours prn GUAIFENESIN-CODEINE 91393752998 No Longer Active Myrna Roberto MD Active NAPROXEN 500 MG ORAL TABLET one tab PO BID NAPR OXEN 75416084343 No Longer Active Myrna Roberto MD Active AUGMENTIN 875-125 MG ORAL TABLET 1 tab by mouth twice daily with food AMOXICILLIN-POT CLAVULANATE 79064614308 No Longer Act zaid Liliana Estrada MD PhD Active AMOXICILLIN 500 MG ORAL CAPSULE 1 tab by mouth 3 times daily 201 02/21/05 AMOXICILLIN 77390231623 No Longer Active Liliana Estrada MD PhD Active TESSALON PERLES 100 MG ORAL CAPSULE 1 tablet by mouth 3 times da cory BENZONATATE 13324223643 No Longer Active Liliana Estrada MD PhD Active FLAGYL 500 MG ORAL TABLET 1 tablet by mouth two times daily 2014 METRONIDAZOLE 73461547906 No Longer Active Nilam ida Ac tive ZITHROMAX 250 MG ORAL TABLET 2 po today, then 1 po q days 2-5 20 06/08/16 AZITHROMYCIN 02484652628 No Longer Active Arie Casper MD Active VITAMINS 0.8 MG ORAL TABLET take 1 tab po qday [id number] 72882513878 No Longer Active Arie Casper MD Active IBUPROFEN 800 MG ORAL TABLET take one po Q 8 hours 201 02/01/16 IBUPROFEN 30551005672 No Longer Active Arie Casper MD Acti ve [facility] TUSSIN COUGH/COLD CF 5-10-100 MG/5ML ORAL LIQUID 2 teasp oons every 4 hours [id number] 89096962765 No Longer Active Blaine Casper MD Active COMTREX COLD/COUGH DAY/NITE MS 5-2-10-325 MG ORAL 2 caps deja ry 4 hours [id number] 74663583055 No Longer Active Landon Casper MD Active CHLORASEPTIC MAX SORE THROAT 15-10 MG MOUTH/THROAT LOZENGE 1 every 2 hours prn BENZOCAINE-MENTHOL 30396380410 No Longer Active Arie Casper MD Active PREDNISONE 20 MG ORAL TABLET 2 tabs daily for 3 days, 1 tab daily for 3 days, 1/2 tab daily for 2 days PREDNISONE 22741023638 No Longer Active Jose Zhong MD Active AZITHROMYCIN 250 MG ORAL TABLET 2 po qd x 1 day, then 1 po q d x 4 days AZITHROMYCIN 02197447503 No Longer Active Jose Mcwilliams MD Active ZOFRAN ODT 4 MG ORAL TABLET DISINTEGRATING 1 po q6hr PRN Nausea ONDANSETRON 53838232264 No Longer Active Rich Rosales MD Active ZOFRAN 4 MG ORAL TABLET 1 tablet every 4 hours ONDANSETRON HCL 45270712388 No Longer Active Rich Rosales MD Activ e MUCINEX 600 MG ORAL TABLET EXTENDED RELEASE 12 HOUR Ta ke 1-2 tablets every 12 hours GUAIFENESIN 13726604480 No Longer Active Rich Rosales MD Active BACTRIM 400-80 MG ORAL TABLET take one po BID SULFAMETHOXAZOLE-TRIMETHOPRIM 86103495292 No Longer Active Abelardo HERNANDEZ Active AZITHROMYCIN 500 MG ORAL TABLET 1 PO q day x 6 days 20 03/02/23 AZITHROMYCIN 34555033217 No Longer Active Tin HERNANDEZ Activ e ZITHROMAX 250 MG ORAL TABLET 2 po today, then 1 po q days 2-5 20 10/03/08 AZITHROMYCIN 90902548590 No Longer Active Arie Casper MD Active ZITHROMAX 250 MG ORAL TABLET 2 po today, then 1 po q days 2-5 20 09/23/25 AZITHROMYCIN 50948012544 No Longer Active Arie Casper MD Active AMOXICILLIN 500 MG ORAL CAPSULE 1 tab by mouth 3 times daily 201 11/24/09 AMOXICILLIN 36642118107 No Longer Active Arie Casper MD Active BACTRIM DS 800-160 MG ORAL TABLET 1 tab by mouth twice daily 201 11/03/14 TRIMETHOPRIM-SULFAMETHOXAZOLE 07495244342 No Longer Active Fozia Casper MD Active AMOXICILLIN 500 MG ORAL TABLET take 1 tab po TID 08/05 AMOXICILLIN 27080457058 No Longer Active Arie Casper MD Acti [...] 4 hours ZOFRAN 4 MG ORAL TABLET 780041 ONDANSETRON HCL Inactive ZOFRAN ODT 4 MG [...] COLD/COUGH DAY/NITE MS 5-2-10-325 MG ORA L [id number] Inactive [facility] TUSSIN COUGH/COLD CF 5-10-100 MG/5ML ORAL LIQUID 2 teasp oons every 4 hours [facility] TUSSIN COUGH/COLD CF 5-10-100 MG/5ML ORAL LI QUID [id number] Inactive IBUPROFEN 800 MG ORAL TABLET take one po Q 8 hours 201 02/01/16 IBUPROFEN 800 MG ORAL TABLET IBUPROFEN Inactive VITAMINS 0.8 MG ORAL TABLET take 1 tab po qday VITAMINS 0.8 MG ORAL TABLET [id number] E-FA Inactive TESSALON PERLES 100 MG ORAL CAPSULE 1 tablet by mouth 3 times da cory TESSALON PERLES 100 MG ORAL CAPSULE 19730630 BENZONATATE Inactive AMOXICILLIN 500 MG ORAL CAPSULE 1 tab by mouth 3 times daily 201 02/21/05 AMOXICILLIN 500 MG ORAL CAPSULE 547295 AMOXICILLIN Inactive GUAIFENESIN-CODEINE 100-10 MG/5ML ORAL SYRUP 2 tsp every 6 hours prn GUAIFENESIN-CODEINE 100-10 MG/5ML ORAL SYRUP 634196 GUAIFENESIN-CODEINE Inactive VICKS DAYQUIL SEVERE COLD/FLU TABLET 1 tab every 6 hours prn 201 02/22/17 VICKS DAYQUIL SEVERE COLD/FLU TABLET PHENYLEPHRI OG-LH-DV-APAP TABS Inactive BACTRIM DS 800-160 MG ORAL TABLET 1 twice a day 05/30 BACTRIM DS 800-160 MG ORAL TABLET 989369 SULFAMETHOXAZOLE-TRIMETHOPRIM Inactiv e PROMETHAZINE HCL 25 MG ORAL TABLET 1 four times a day as nee ded for vomiting PROMETHAZINE HCL 25 MG ORAL TABLET 983708 PROMETHAZINE HCL Inactive ZYRTEC ALLERGY 10 MG ORAL CAPSULE 1 po qd ZYRTEC ALLERGY 10 MG ORAL CAPSULE CETIRIZINE HCL Inactive MACROBID 100 MG ORAL CAPSULE 1 cap by mouth twice daily MACROBID 100 MG ORAL CAPSULE 2870568 NITROFURANTOIN MONOHYD MACRO In active LOMOTIL 2.5-0.025 MG ORAL TABLET 1 to 2 four times a day as needed for diarrhea LOMOTIL 2.5-0.025 MG ORAL TABLET 7243662 DIPHENOXYLATE-ATROPINE Inactive CYCLOBENZAPRINE HCL 10 MG ORAL TABLET 1/2 - 1 tablet b y mouth three times daily as needed for muscle spasm/pain CYCLOBEN ZAPRINE HCL 10 MG ORAL TABLET 320865 CYCLOBENZAPRINE HCL Inactive AMOXICILLIN 500 MG ORAL TABLET 2 tabs twice a day for 10 days 20 07/09/11 AMOXICILLIN 500 MG ORAL TABLET 709300 AMOXICILLIN I nactive LOMOTIL 2.5-0.025 MG ORAL TABLET 1 to 2 four times a day as needed for diarrhea LOMOTIL 2.5-0.025 MG ORAL TABLET 6594496 DIPHENOXYLATE-ATROPINE Inactive ZOFRAN 4 MG ORAL TABLET 1 TAB PO Q 6 HRS PRN NAUSEA 20 07/10/15 ZOFRAN 4 MG ORAL TABLET 017972 ONDANSETRON HCL Inactive CITRATE OF MAGNESIA ORAL SOLUTION 1 bottle today for constipatio n CITRATE OF MAGNESIA ORAL SOLUTION 0189812 MAGNESIUM CITR ATE Inactive PROMETHAZINE HCL 12.5 MG ORAL TABLET 1 tablet by mouth every 6 hours as needed for nausea/vomiting PROMETHAZINE HCL 12.5 MG ORA L TABLET 186408 PROMETHAZINE HCL Inactive PREDNISONE 20 MG ORAL TABLET 1 tablet twice daily for 2 days, then 1 tablet once daily for 2 days PREDNISONE 20 MG ORAL TABLET 627556 PREDNISONE Inactive ALPRAZOLAM 0.25 MG ORAL TABLET 1 tablet by mouth every 8 hours as needed for stress ALPRAZOLAM 0.25 MG ORAL TABLET 856472 ALPRA ZOLAM Inactive FLONASE 50 MCG/ACT NASAL SUSPENSION 1 spray each nostr il twice daily for allergies and runny nose until gone FLON ASE 50 MCG/ACT NASAL SUSPENSION 1789339 FLUTICASONE PROPIONATE Inactive PREDNISONE 20 MG ORAL TABLET 1 tablet daily for airway inflammat ion PREDNISONE 20 MG ORAL TABLET 758619 PREDNISONE Max ctive NAPROXEN 500 MG ORAL TABLET Take 1 tab BID NAPROXEN 500 MG ORAL TABLET 870691 NAPROXEN Inactive ZOLOFT 50 MG ORAL TABLET 1 tablet by mouth daily 12/08 ZOLOFT 50 MG ORAL TABLET 052971 SERTRALINE HCL Inactive LOMOTIL 2.5-0.025 MG ORAL TABLET 1 tab po four times a day as needed for diarrhea LOMOTIL 2.5-0.025 MG ORAL TABLET 3379806 DIPHENOXYLATE-ATROPINE Inactive CETIRIZINE HCL 10 MG ORAL TABLET 1 po qd PRN Allergies CETIRIZINE HCL 10 MG ORAL TABLET 4370918 CETIRIZINE HCL Inactiv e TUSSIONEX PENNKINETIC ER 10-8 MG/5ML ORAL SUSPENSION E XTENDED RELEASE 5ml po q12hr PRN Cough TUSSIONEX PENNKINETI C ER 10-8 MG/5ML ORAL SUSPENSION EXTENDED RELEASE HYDROCOD POLST-CHLORPHEN POLST I nactive NEXPLANON IMPLANT right arm subcutaneously NEXPLANON IMPLANT ETONOGESTREL IMPL Inactive PROTONIX 40 MG ORAL TABLET DELAYED RELEASE 1 po q a.m. PROTONIX 40 MG ORAL TABLET DELAYED RELEASE 197597 PANTOPRAZOLE SODI UM Inactive CHERATUSSIN AC 100-10 MG/5ML ORAL SYRUP 1 tsp by mouth every 4 hours as needed for cough CHERATUSSIN AC 100-10 MG/5ML ORAL SYRUP 9 71444 GUAIFENESIN-CODEINE Inactive GUAIFENESIN DM 400-20 MG ORAL [...] tid K EFLEX 500 MG ORAL CAPSULE 799356 CEPHALEXIN Inactive DIFLUCAN 100 MG ORAL TABLET 1 tablet by mouth daily, R EPEAT 2ND DOSE IN 7 DAYS IF STILL SYMPTOMATIC DIFLUCAN 100 MG ORAL TABLET 84036 8 FLUCONAZOLE Inactive PROTONIX 40 MG ORAL TABLET DELAYED RELEASE 1 pill by m outh daily, for acid reflux PROTONIX 40 MG ORAL TABLET DELAYED RELEAS E 518993 PANTOPRAZOLE SODIUM Inactive ALPRAZOLAM 0.25 MG ORAL TABLET 1 tablet by mouth twice a day as needed for stress/anxiety ALPRAZOLAM 0.25 MG ORAL TABLET 376799 ALPRAZOLAM Inactive ESCITALOPRAM OXALATE 10 MG ORAL TABLET take 1 tab po qhs for mod ESCITALOPRAM OXALATE 10 MG ORAL TABLET 460276 ESCITALOP JO OXALATE Inactive AMOXICILLIN 500 MG ORAL TABLET take 1 tab po TID 08/05 AMOXICILLIN 500 MG ORAL TABLET 328734 AMOXICILLIN Inactive AMOXICILLIN 500 MG ORAL CAPSULE 1 tab by mouth 3 times daily 201 11/24/09 AMOXICILLIN 500 MG ORAL CAPSULE 713325 AMOXICILLIN Inactive ZITHROMAX 250 MG ORAL TABLET 2 po today, then 1 po q days 2-5 20 09/23/25 ZITHROMAX 250 MG ORAL TABLET 157424 AZITHROMYCIN Max ctive ZITHROMAX 250 MG ORAL TABLET 2 po today, then 1 po q days 2-5 20 10/03/08 ZITHROMAX 250 MG ORAL TABLET 734443 AZITHROMYCIN Max ctive AZITHROMYCIN 500 MG ORAL TABLET 1 PO q day x 6 days 20 03/02/23 AZITHROMYCIN 500 MG ORAL TABLET 5881408 AZITHROMYCIN Inactive BACTRIM 400-80 MG ORAL TABLET take one po BID BACTRIM 400- 80 MG ORAL TABLET 674200 SULFAMETHOXAZOLE-TRIMETHOPRIM Inactive AZITHROMYCIN 250 MG ORAL TABLET 2 po qd x 1 day, then 1 po q d x 4 days AZITHROMYCIN 250 MG ORAL TABLET 040732 AZITHROMY ALLISON Inactive PREDNISONE 20 MG ORAL TABLET 2 tabs daily for 3 days, 1 tab daily for 3 days, 1/2 tab daily for 2 days PREDNISONE 20 MG ORAL T ABLET 206135 PREDNISONE Inactive ZITHROMAX 250 MG ORAL TABLET 2 po today, then 1 po q days 2-5 20 06/08/16 ZITHROMAX 250 MG ORAL TABLET 272053 AZITHROMYCIN Max ctive FLAGYL 500 MG ORAL TABLET 1 tablet by mouth two times daily 2014 FLAGYL 500 MG ORAL TABLET 880060 METRONIDAZOLE Inacti ve AUGMENTIN 875-125 MG ORAL TABLET 1 tab by mouth twice daily with food AUGMENTIN 875-125 MG ORAL TABLET 267693 AMOXICIL ELSA-POT CLAVULANATE Inactive NAPROXEN 500 MG ORAL TABLET one tab PO BID NAPROXEN 500 MG ORAL TABLET 934177 NAPROXEN Inactive PREDNISONE 20 MG ORAL TABLET 2 tabs daily for 3 days, 1 tab daily for 3 days, 1/2 tab daily for 2 days PREDNISONE 20 MG ORAL T ABLET 241547 PREDNISONE Inactive AZITHROMYCIN 250 MG ORAL TABLET 2 po qd x 1 day, then 1 po q d x 4 days AZITHROMYCIN 250 MG ORAL TABLET 034261 AZITHROMY ALLISON Inactive PREDNISONE 20 MG ORAL TABLET 2 tabs daily for 3 days, 1 tab daily for 3 days, 1/2 tab daily for 2 days PREDNISONE 20 MG ORAL T ABLET 984830 PREDNISONE Inactive ZITHROMAX Z-EMIL 250 MG ORAL TABLET 2 today, then 1 daily for 4 d ays ZITHROMAX Z-EMIL 250 MG ORAL TABLET 609635 AZITHROMYCIN Inactive CEFDINIR 300 MG ORAL CAPSULE 1 po BID x 10 days 12/18 CEFDINIR 300 MG ORAL CAPSULE 518017 CEFDINIR Inactive CEFDINIR 300 MG ORAL CAPSULE 1 po BID x 10 days CEFDINIR 300 MG ORAL CAPSULE 468760 CEFDINIR Inactive PREDNISONE 20 MG ORAL TABLET 2 tabs daily for 3 days, 1 tab daily for 3 days, 1/2 tab daily for 2 days PREDNISONE 20 MG ORAL T ABLET 929323 PREDNISONE Inactive BACTRIM DS 800-160 MG ORAL TABLET 1 tab by mouth twice daily 201 05/02/30 BACTRIM DS 800-160 MG ORAL TABLET 078478 TRIMETHOPRIM-SULFAMETHOXAZOLE Inactive ZITHROMAX Z-EMIL 250 MG ORAL TABLET 2 today, then 1 daily for 4 d ays ZITHROMAX Z-EMIL 250 MG ORAL TABLET 521043 AZITHROMYCIN Inactive TAMIFLU 75 MG ORAL CAPSULE 1 po BID x 5 days 0 TAMIFLU 75 MG ORAL CAPSULE 033599 OSELTAMIVIR PHOSPHATE Inactive CEFDINIR 300 MG ORAL CAPSULE 1 po BID x 10 days 01/03 CEFDINIR 300 MG ORAL CAPSULE 928145 CEFDINIR Inactive ZITHROMAX Z-EMIL 250 MG TABS Take two tablets today and then 1 tablet daily for 4 days ZITHROMAX Z-EMIL 250 MG TABS 050956 AZITHROM YCIN Inactive AMOXICILLIN 875 MG ORAL TABLET 1 tab by mouth twice daily AMOXICILLIN 875 MG ORAL TABLET 648768 AMOXICILLIN Inactive Advance Directives Directive Description Start [...] 11 .0-15.0 platelet count 280 THOUSAND/UL 10*3/mm3 740-554 1080/02/18 mean platelet volume 11.6 fL 7.5-12.5 Lab [...] 0.2 Encounters Code Encounter Date Provider Facility [facility] [place]-35825 [id number] Vst-Est Level IV 13:45:[address] Tali Devi PA-C [facility]-35589 [id number] Vst-Est Level III 09:41:31 CDT Arie Casper MD [facility]-36751 66183-Avi Vst-Est Level III 18:20:11 CDT Me robin [facility]-31684 [id number]-Tph Vst-Est Level III 17:21:41 CDT [facility] 90445-Nug Vst-Est Level IV 13:30:22 C NIC Casper MD [facility]-09090 Level 4 Est. Patient 13:05:26 CDT Myrna maldonado MD [facility]-20689 10439-Eza Vst-Est Level IV 20:50:21 C NIC Casper MD [facility]-83235 Level 3 Est. Patient 11:49:34 RN REHABILITATION Jessica boyd [facility] CPT-00112 Level 3 Est. Patient 14:55:50 RN REHABILITATION Jose Zhong MD [facility] CPT-86234 Level 3 Est. Patient 10:21:41 RN REHABILITATION Arie mcqueen MD [facility] CPT-35127 Level 3 Est. Patient 11:35:15 RN REHABILITATION Arie mcqueen MD [facility] CPT-31604 Level 3 Est. Patient 15:40:28 CDT Brii Are ll [facility] CPT-36007 Level 3 Est. Patient 16:40:36 CDT Arie mcqueen MD [facility] CPT-98815 Level 4 Est. Patient 15:29:22 RN REHABILITATION Arie mcqueen MD [facility] CPT-81175 Level 3 Est. Patient 15:18:16 RN REHABILITATION Jono black [facility] CPT-40730 Level 4 Est. Patient 12:08:40 RN REHABILITATION Brii Are ll [facility] CPT-94119 Level 3 Est. Patient 09:24:42 CDT Brii Are ll [facility] CPT-94507 Level 3 Est. Patient 09:12:56 CDT Arie mcqueen MD [facility] CPT-86070 Level 3 Est. Patient 16:40:54 CDT Jose Zhong MD [facility] CPT-19435 Level 2 Est. Patient 13:01:13 CDT Brii Are ll [facility] CPT-67629 Level 3 Est. Patient 11:55:30 RN REHABILITATION Jono black [facility] CPT-01394 Level 3 Est. Patient 09:52:36 RN REHABILITATION Brii Are ll [facility] CPT-09944 Level 3 Est. Patient 16:25:33 RN REHABILITATION Rich Rosales MD [facility] CPT-72491 Level 3 Est. Patient 20:33:55 CDT Arie mcqueen MD [facility] CPT-35423 Level 3 Est. Patient 14:18:20 CDT Rich Rosales MD [facility] CPT-73237 Level 4 Est. Patient 09:34:31 CDT Arie mcqueen MD [facility]-82792 Level 3 Est. Patient 09:08:55 RN REHABILITATION Liliana vincent MD PhD [facility] CPT-18455 Level 3 Est. Patient 16:44:07 RN REHABILITATION Arie mcqueen MD [facility] CPT-47405 Level 3 Est. Patient 10:44:27 CDT Arie mcqueen MD [facility] CPT-54608 Level 3 Est. Patient 08:55:41 CDT Jose Zhong MD [facility] CPT-22401 Level 3 Est. Patient 18:37:31 CDT Liliana vincent MD PhD [facility] CPT-05115 Level 3 Est. Patient 14:28:23 CDT Abelardo HERNANDEZ [facility] CPT-21539 Level 3 Est. Patient 15:18:13 RN REHABILITATION Arie mcqueen MD [facility] CPT-45583 Level 3 Est. Patient 10:11:29 RN REHABILITATION Arie mcqueen MD [facility] CPT-48660 Level 3 Est. Patient 10:55:57 RN REHABILITATION Jono black DO [facility] CPT-07325 Level 3 Est. Patient 17:29:05 CDT Arie mcqueen MD [facility] Procedures Code Procedure Name Date Entry Date Standard Desc ription CPT-61282 [facility] Urine - MARC ONLY 12:13:59 RN REHABILITATION 12/11 CPT-28579 Spec Collection and Handling Fee 12:13:[address] CPT-22318 Visit 12:13:59 RN REHABILITATION CPT-28366 First Vx - Ix admin via ID I M or jet injects without counseling by physician 13:00:15 RN REHABILITATION CPT-10009 Flulaval Intramuscular Injectable 13:00:15 RN REHABILITATION CPT-99493 Urine Dip (Floor Use Only) 12:20:20 RN REHABILITATION 201 06/03/24 CPT-06622 Sono Soft Tissue Head and Neck - XRAY US E ONLY 17:10:14 CDT CPT-95824 Ear Wash with irrigation 17:21:41 CDT 07/04 CPT-02405 Nexplanon Removal 15:40:28 CDT CPT-88298 Sono transvag pelvis non OB uterus ovari es cervix - XRAY USE ONLY 08:58:14 RN REHABILITATION CPT-40398 UA w micro - LAB USE ONLY 16:04:56 RN REHABILITATION 2015 CPT-61585 Wet Prep/GEN - LAB USE ONLY 16:04:56 RN REHABILITATION 20 08/10/29 CPT-06024 First Vx - Ix admin via ID I M or jet injects without counseling by physician 16:57:10 CDT CPT-80328 Fluzone Preservative Free Intramuscular Suspension 16:57:10 CDT CPT-J0696 Rocephin 1000 mg (Ceftriaxone) 11:49:23 CDT CPT-J1040 Depo Medrol 80 mg (Methyl Prednisolone A cetate) 11:49:23 CDT CPT-J1100 Decadron 8mg (Dexamethasone) 11:49:23 CDT 2 CPT-24379 Abx/Therapy Injection 11:49:23 CDT CPT-65881 Abx/Therapy Injection 11:49:23 CDT CPT-90400 Abd compl w upright 09:07:26 RN REHABILITATION CPT-60519 Ear Wash 16:12:47 RN REHABILITATION CPT-OV Office Visit 11:12:01 CDT CPT-OV Office Visit 15:30:23 CDT CPT-83653 Sono pelvis non OB uterus ovaries cervix 15:50:44 CDT CPT-51723 Hand comp min 3V 16:42:32 CDT CPT-98332 Abd compl w upright 12:17:01 CDT CPT-09849 Nexplanon Placement 15:07:39 RN REHABILITATION CPT-49661 Removal of IUD 15:07:39 RN REHABILITATION CPT-28065 TB Tubersol 12:09:32 CDT CPT-25414 TB Tubersol 13:55:43 CDT
--- OUTSIDE RECORDS SUMMARY | 2020-03-03 07:00 | XMS REPORT | Clinical Summary ---
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 20 08/10/29 CPT-29306 First Vx - Ix admin via ID I M or jet injects without counseling by physician 16:57:10 CDT CPT-09587 Fluzone Preservative Free Intramuscular Suspension 16:57:10 CDT CPT-J0696 Rocephin 1000 mg (Ceftriaxone) 11:49:23 CDT CPT-J1040 Depo Medrol 80 mg (Methyl Prednisolone A cetate) 11:49:23 CDT CPT-J1100 Decadron 8mg (Dexamethasone) 11:49:23 CDT 2 CPT-52656 Abx/Therapy Injection 11:49:23 CDT CPT-82429 Abx/Therapy Injection 11:49:23 CDT CPT-56914 Abd compl w upright 09:07:26 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
[2020-03-03 07:01] LABS: BASOPHILS % (AUTO) 0 % (0-10); EOSINOPHILS # (AUTO) 0.2 10^3/uL (0.0-0.3); EOSINOPHILS % (AUTO) 2 % (0-10); HEMATOCRIT 34 % (35-52); HEMOGLOBIN 10.8 G/DL (11.5-16.0); LYMPHOCYTES # (AUTO) 2.2 X 10^3 (1.0-4.0); LYMPHOCYTES % (AUTO) 22 % (12-44); MEAN CORPUSCULAR HEMOGLOBIN 26 PG (25-34); MEAN CORPUSCULAR HGB CONC 32 G/DL (32-36); MEAN CORPUSCULAR VOLUME 82 FL (80-99); MEAN PLATELET VOLUME 10.7 FL (7.4-10.4); MONOCYTES % (AUTO) 10 % (0-12); NEUTROPHILS # (AUTO) 6.4 X 10^3 (1.8-7.8); NEUTROPHILS % (AUTO) 66 % (42-75); PLATELET COUNT 179 10^3/uL (130-400); RED CELL DISTRIBUTION WIDTH 13.6 % (10.0-14.5); WHITE BLOOD COUNT 9.7 10^3/uL (4.3-11.0)
--- OUTSIDE RECORDS SUMMARY | 2020-03-03 07:01 | XMS REPORT | Clinical Summary ---
Author Author Admin, Diamante Marcelo Organization [place] Address Unknown Phone Unavailable Allergies, Adverse Reactions, [...] with depression 300.4 Active Brii Ramirez l CATTLE SORTER Dysthymic disorder URI 465.9 Active Jono Gagnon [...] respiratory manifestations Sinusitis 473.9 Active Jessica Heaton CATTLE SORTER Unspecified sinusitis (chronic) Other mixed anxiety 300.00 [...] cerumen Tonsillar enlargement 474.11 Active Brii Arell CATTLE SORTER Hypertrophy of tonsils alone Influenza Vaccination for Prophylaxis V04.81 Inactive Brii Arell CATTLE SORTER Need for prophylactic vaccin ation and inoculation against influenza Submandibular lymph node 785.6 Active Brii Are ll CATTLE SORTER Enlargement of lymph nodes Influenza Vaccination for [...] 3-4 times per day 12/11 PYRIDOXINE HCL 85475036038 Active Myrna Roberto MD Active UNISOM SLEEPTABS 25 MG ORAL TABLET one tab PO qhs DOXYLAMINE SUCCINATE (SLEEP) 71193690582 Active Myrna Roberto MD Active TYLENOL 325 MG ORAL CAPSULE PRN ACETAMINOPHEN 000 44594655 Active Brii Pacheco Active ESCITALOPRAM OXALATE 10 MG ORAL TABLET take 1 tab po qhs for mod ESCITALOPRAM OXALATE 21389561102 No Longer Active Brii Pacheco Active ALPRAZOLAM 0.25 MG ORAL TABLET 1 tablet by mouth twice a day as needed for stress/anxiety ALPRAZOLAM 16710237134 No Longer Active Brii Pacheco Active PROTONIX 40 MG ORAL TABLET DELAYED RELEASE 1 pill by m outh daily, for acid reflux PANTOPRAZOLE SODIUM 86161971960 No Longer Activ e Brii Tara Active DIFLUCAN 100 MG ORAL TABLET 1 tablet by mouth daily, R EPEAT 2ND DOSE IN 7 DAYS IF STILL SYMPTOMATIC FLUCONAZOLE 80660703105 No Long er Active Nilam Weber Active KEFLEX 500 MG ORAL CAPSULE 1 po tid CEPHALEXI N 16804498062 No Longer Active Tali Devi PA-C Active CONCEPT DHA 53.5-38-1 MG ORAL CAPSULE 1 tablet daily [id number] 3 84045329999 Active Oxana Harley LOCK PLATER Active AMOXICILLIN 875 MG ORAL TABLET 1 tab by mouth twice daily 1 AMOXICILLIN 42432350935 No Longer Active Brii Russ CATTLE SORTER Active TUSSIONEX PENNKINETIC ER 10-8 MG/5ML ORAL SUSPENSION E XTENDED RELEASE 5ml po q12hr PRN Cough HYDROCOD POLST-CHLORPHEN POLST 5 0791463353 No Longer Active Myrna Roberto MD Active ZITHROMAX Z-EMIL 250 MG TABS Take two tablets today and then 1 tablet daily for 4 days AZITHROMYCIN 89367099425 No Longer Active Flaco Rosales MD Active GUAIFENESIN DM 400-20 MG ORAL TABLET 1 pill by mouth t wice daily, if needed for cough DEXTROMETHORPHAN-GUAIFENESIN 59690638354 No Longer Active Rich Rosales MD Active CEFDINIR 300 MG ORAL CAPSULE 1 po BID x 10 days CEFDINIR 27562906264 No Longer Active Jessica Heaton APRN Active CHERATUSSIN AC 100-10 MG/5ML ORAL SYRUP 1 tsp by mouth every 4 hours as needed for cough GUAIFENESIN-CODEINE 31340987469 No Longe r Active Jessica Heaton APRN Active TAMIFLU 75 MG ORAL CAPSULE 1 po BID x 5 days 0 OSELTAMIVIR PHOSPHATE 45822169112 No Longer Active Jose Zhong MD Activ e ZITHROMAX Z-EMIL 250 MG ORAL TABLET 2 today, then 1 daily for 4 d ays AZITHROMYCIN 55821230721 No Longer Active Arie Casper MD Active PROTONIX 40 MG ORAL TABLET DELAYED RELEASE 1 po q a.m. PANTOPRAZOLE SODIUM 35462528387 No Longer Active Arie Casper MD Active BACTRIM DS 800-160 MG ORAL TABLET 1 tab by mouth twice daily 201 05/02/30 TRIMETHOPRIM-SULFAMETHOXAZOLE 19040436186 No Longer Active R KELLIE Sandoval Active NEXPLANON IMPLANT right arm subcutaneously ETONOGESTREL IMPL 02003911239 No Longer Active Brii Russ APRN Active TUSSIONEX PENNKINETIC ER 10-8 MG/5ML ORAL SUSPENSION E XTENDED RELEASE 5ml po q12hr PRN Cough HYDROCOD POLST-CHLORPHEN POLST 5 4697165269 No Longer Active Brii Russ APRN Active CETIRIZINE HCL 10 MG ORAL TABLET 1 po qd PRN Allergies CETIRIZINE HCL 29294015294 No Longer Active Brii Russ APRN Activ e PREDNISONE 20 MG ORAL TABLET 2 tabs daily for 3 days, 1 tab daily for 3 days, 1/2 tab daily for 2 days PREDNISONE 43454083711 No Longer Active Arie Casper MD Active LOMOTIL 2.5-0.025 MG ORAL TABLET 1 tab po four times a day as needed for diarrhea DIPHENOXYLATE-ATROPINE 32769323592 No Lo nger Active Arie Casper MD Active ZOLOFT 50 MG ORAL TABLET 1 tablet by mouth daily 12/08 SERTRALINE HCL 42618374643 No Longer Active Arie Casper MD Ac tive NAPROXEN 500 MG ORAL TABLET Take 1 tab BID NAPR OXEN 32107663845 No Longer Active Arie Casper MD Active CEFDINIR 300 MG ORAL CAPSULE 1 po BID x 10 days CEFDINIR 76657510064 No Longer Active Brii Russ APRN Active PREDNISONE 20 MG ORAL TABLET 1 tablet daily for airway inflammat ion PREDNISONE 70553520885 No Longer Active Brii Russ APRN A ctive CEFDINIR 300 MG ORAL CAPSULE 1 po BID x 10 days CEFDINIR 47361374793 No Longer Active Jono Gagnon DO Active FLONASE 50 MCG/ACT NASAL SUSPENSION 1 spray each nostr il twice daily for allergies and runny nose until gone FLUT ICASONE PROPIONATE 14265151670 No Longer Active Jono Gagnon DO Active ALPRAZOLAM 0.25 MG ORAL TABLET 1 tablet by mouth every 8 hours as needed for stress ALPRAZOLAM 63798305405 No Longer Active Jono Gagnon DO Active ZITHROMAX Z-EMIL 250 MG ORAL TABLET 2 today, then 1 daily for 4 d ays AZITHROMYCIN 25307299828 No Longer Active Arie Casper MD Active PREDNISONE 20 MG ORAL TABLET 2 tabs daily for 3 days, 1 tab daily for 3 days, 1/2 tab daily for 2 days PREDNISONE 06818913270 No Longer Active Brii Russ APRN Active PREDNISONE 20 MG ORAL TABLET 1 tablet twice daily for 2 days, then 1 tablet once daily for 2 days PREDNISONE 67196861120 No Longer Active Brii Russ APRN Active PROMETHAZINE HCL 12.5 MG ORAL TABLET 1 tablet by mouth every 6 hours as needed for nausea/vomiting PROMETHAZINE HCL 28358439468 No L onger Active Jono Gagnon DO Active CITRATE OF MAGNESIA ORAL SOLUTION 1 bottle today for constipatio n MAGNESIUM CITRATE 95113962985 No Longer Active Jono Gagnon DO Active ZOFRAN 4 MG ORAL TABLET 1 TAB PO Q 6 HRS PRN NAUSEA 20 07/10/15 ONDANSETRON HCL 04546500897 No Longer Active Brii Russ APRN Acti ve LOMOTIL 2.5-0.025 MG ORAL TABLET 1 to 2 four times a day as needed for diarrhea DIPHENOXYLATE-ATROPINE 89870060685 No Longer Active January Russ APRN Active AMOXICILLIN 500 MG ORAL TABLET 2 tabs twice a day for 10 days 20 07/09/11 AMOXICILLIN 68372467779 No Longer Active Brii Russ APRN Active CYCLOBENZAPRINE HCL 10 MG ORAL TABLET 1/2 - 1 tablet b y mouth three times daily as needed for muscle spasm/pain CYCLOBENZAPRINE HCL 67694437378 No Longer Active Arie Casper MD Active LOMOTIL 2.5-0.025 MG ORAL TABLET 1 to 2 four times a day as needed for diarrhea DIPHENOXYLATE-ATROPINE 23849216480 No Longer Active Fozia Casper MD Active MACROBID 100 MG ORAL CAPSULE 1 cap by mouth twice daily NITROFURANTOIN MONOHYD MACRO 90129294360 No Longer Active Arie Casper MD Active ZYRTEC ALLERGY 10 MG ORAL CAPSULE 1 po qd CE TIRIZINE HCL 38211001179 No Longer Active Arie Casper MD Active AZITHROMYCIN 250 MG ORAL TABLET 2 po qd x 1 day, then 1 po q d x 4 days AZITHROMYCIN 64889848858 No Longer Active Jillina Fra naomi CATTLE SORTER Active PREDNISONE 20 MG ORAL TABLET 2 tabs daily for 3 days, 1 tab daily for 3 days, 1/2 tab daily for 2 days PREDNISONE 77907373039 No Longer Active Jillina Fradeepl CATTLE SORTER Active PROMETHAZINE HCL 25 MG ORAL TABLET 1 four times a day as nee ded for vomiting PROMETHAZINE HCL 04045817177 No Longer Active Myrna Roberto MD Active BACTRIM DS 800-160 MG ORAL TABLET 1 twice a day 05/30 SULFAMETHOXAZOLE-TRIMETHOPRIM 36999912562 No Longer Active Myrna Roberto MD Active VICKS DAYQUIL SEVERE COLD/FLU TABLET 1 tab every 6 hours prn 201 02/22/17 [id number] TABS 27743797583 No Longer Active K fany Roberto MD Active GUAIFENESIN-CODEINE 100-10 MG/5ML ORAL SYRUP 2 tsp every 6 hours prn GUAIFENESIN-CODEINE 21139780470 No Longer Active Myrna Roberto MD Active NAPROXEN 500 MG ORAL TABLET one tab PO BID NAPR OXEN 60236534906 No Longer Active Myrna Roberto MD Active AUGMENTIN 875-125 MG ORAL TABLET 1 tab by mouth twice daily with food AMOXICILLIN-POT CLAVULANATE 29925186379 No Longer Act zaid Liliana Estrada MD PhD Active AMOXICILLIN 500 MG ORAL CAPSULE 1 tab by mouth 3 times daily 201 02/21/05 AMOXICILLIN 14205218888 No Longer Active Liliana Estrada MD PhD Active TESSALON PERLES 100 MG ORAL CAPSULE 1 tablet by mouth 3 times da cory BENZONATATE 03278747022 No Longer Active Liliana Estrada MD PhD Active FLAGYL 500 MG ORAL TABLET 1 tablet by mouth two times daily 2014 METRONIDAZOLE 80671515755 No Longer Active Nilam Doran tive ZITHROMAX 250 MG ORAL TABLET 2 po today, then 1 po q days 2-5 20 06/08/16 AZITHROMYCIN 33618622667 No Longer Active Arie Casper MD Active VITAMINS 0.8 MG ORAL TABLET take 1 tab po qday [id number] 13447454390 No Longer Active Arie Casper MD Active IBUPROFEN 800 MG ORAL TABLET take one po Q 8 hours 201 02/01/16 IBUPROFEN 76475752355 No Longer Active Arie Casper MD Acti ve [facility] TUSSIN COUGH/COLD CF 5-10-100 MG/5ML ORAL LIQUID 2 teasp oons every 4 hours [id number] 98048411447 No Longer Active Blaine Casper MD Active COMTREX COLD/COUGH DAY/NITE MS 5-2-10-325 MG ORAL 2 caps deja ry 4 hours [id number] 85683526223 No Longer Active Landon Casper MD Active CHLORASEPTIC MAX SORE THROAT 15-10 MG MOUTH/THROAT LOZENGE 1 every 2 hours prn BENZOCAINE-MENTHOL 71698447541 No Longer Active Arie Casper MD Active PREDNISONE 20 MG ORAL TABLET 2 tabs daily for 3 days, 1 tab daily for 3 days, 1/2 tab daily for 2 days PREDNISONE 86631131592 No Longer Active Jose Zhong MD Active AZITHROMYCIN 250 MG ORAL TABLET 2 po qd x 1 day, then 1 po q d x 4 days AZITHROMYCIN 44458472324 No Longer Active Jose Mcwilliams MD Active ZOFRAN ODT 4 MG ORAL TABLET DISINTEGRATING 1 po q6hr PRN Nausea ONDANSETRON 61688373030 No Longer Active Rich Rosales MD Active ZOFRAN 4 MG ORAL TABLET 1 tablet every 4 hours ONDANSETRON HCL 08215378914 No Longer Active Rich Rosales MD Activ e MUCINEX 600 MG ORAL TABLET EXTENDED RELEASE 12 HOUR Ta ke 1-2 tablets every 12 hours GUAIFENESIN 25243706359 No Longer Active Rich Rosales MD Active BACTRIM 400-80 MG ORAL TABLET take one po BID SULFAMETHOXAZOLE-TRIMETHOPRIM 31112900116 No Longer Active Abelardo HERNANDEZ Active AZITHROMYCIN 500 MG ORAL TABLET 1 PO q day x 6 days 20 03/02/23 AZITHROMYCIN 92892653614 No Longer Active Tin HERNANDEZ Activ e ZITHROMAX 250 MG ORAL TABLET 2 po today, then 1 po q days 2-5 20 10/03/08 AZITHROMYCIN 96716539597 No Longer Active Arie Casper MD Active ZITHROMAX 250 MG ORAL TABLET 2 po today, then 1 po q days 2-5 20 09/23/25 AZITHROMYCIN 20163519433 No Longer Active Arie Casper MD Active AMOXICILLIN 500 MG ORAL CAPSULE 1 tab by mouth 3 times daily 201 11/24/09 AMOXICILLIN 73590570977 No Longer Active Arie Casper MD Active BACTRIM DS 800-160 MG ORAL TABLET 1 tab by mouth twice daily 201 11/03/14 TRIMETHOPRIM-SULFAMETHOXAZOLE 35307458657 No Longer Active Fozia Casper MD Active AMOXICILLIN 500 MG ORAL TABLET take 1 tab po TID 08/05 AMOXICILLIN 25724510164 No Longer Active Aire Casper MD Acti ve BACTRIM DS 800-160 [...] 4 hours ZOFRAN 4 MG ORAL TABLET 669352 ONDANSETRON HCL Inactive ZOFRAN ODT 4 MG [...] COLD/COUGH DAY/NITE MS 5-2-10-325 MG ORA L [id number] Inactive [facility] TUSSIN COUGH/COLD CF 5-10-100 MG/5ML ORAL LIQUID 2 teasp oons every 4 hours [facility] TUSSIN COUGH/COLD CF 5-10-100 MG/5ML ORAL LI QUID [id number] Inactive IBUPROFEN 800 MG ORAL TABLET take one po Q 8 hours 201 02/01/16 IBUPROFEN 800 MG ORAL TABLET IBUPROFEN Inactive VITAMINS 0.8 MG ORAL TABLET take 1 tab po qday VITAMINS 0.8 MG ORAL TABLET [id number] E-FA Inactive TESSALON PERLES 100 MG ORAL CAPSULE 1 tablet by mouth 3 times da cory TESSALON PERLES 100 MG ORAL CAPSULE 19730630 BENZONATATE Inactive AMOXICILLIN 500 MG ORAL CAPSULE 1 tab by mouth 3 times daily 201 02/21/05 AMOXICILLIN 500 MG ORAL CAPSULE 592311 AMOXICILLIN Inactive GUAIFENESIN-CODEINE 100-10 MG/5ML ORAL SYRUP 2 tsp every 6 hours prn GUAIFENESIN-CODEINE 100-10 MG/5ML ORAL SYRUP 637274 GUAIFENESIN-CODEINE Inactive VICKS DAYQUIL SEVERE COLD/FLU TABLET 1 tab every 6 hours prn 201 02/22/17 VICKS DAYQUIL SEVERE COLD/FLU TABLET PHENYLEPHRI [id number]-AA-SM-APAP TABS Inactive BACTRIM DS 800-160 MG ORAL TABLET 1 twice a day 05/30 BACTRIM DS 800-160 MG ORAL TABLET 793113 SULFAMETHOXAZOLE-TRIMETHOPRIM Inactiv e PROMETHAZINE HCL 25 MG ORAL TABLET 1 four times a day as nee ded for vomiting PROMETHAZINE HCL 25 MG ORAL TABLET 607065 PROMETHAZINE HCL Inactive ZYRTEC ALLERGY 10 MG ORAL CAPSULE 1 po qd ZYRTEC ALLERGY 10 MG ORAL CAPSULE CETIRIZINE HCL Inactive MACROBID 100 MG ORAL CAPSULE 1 cap by mouth twice daily MACROBID 100 MG ORAL CAPSULE 4496531 NITROFURANTOIN MONOHYD MACRO In active LOMOTIL 2.5-0.025 MG ORAL TABLET 1 to 2 four times a day as needed for diarrhea LOMOTIL 2.5-0.025 MG ORAL TABLET 4370269 DIPHENOXYLATE-ATROPINE Inactive CYCLOBENZAPRINE HCL 10 MG ORAL TABLET 1/2 - 1 tablet b y mouth three times daily as needed for muscle spasm/pain CYCLOBEN ZAPRINE HCL 10 MG ORAL TABLET 843349 CYCLOBENZAPRINE HCL Inactive AMOXICILLIN 500 MG ORAL TABLET 2 tabs twice a day for 10 days 20 07/09/11 AMOXICILLIN 500 MG ORAL TABLET 407782 AMOXICILLIN I nactive LOMOTIL 2.5-0.025 MG ORAL TABLET 1 to 2 four times a day as needed for diarrhea LOMOTIL 2.5-0.025 MG ORAL TABLET 0284037 DIPHENOXYLATE-ATROPINE Inactive ZOFRAN 4 MG ORAL TABLET 1 TAB PO Q 6 HRS PRN NAUSEA 20 07/10/15 ZOFRAN 4 MG ORAL TABLET 638109 ONDANSETRON HCL Inactive CITRATE OF MAGNESIA ORAL SOLUTION 1 bottle today for constipatio n CITRATE OF MAGNESIA ORAL SOLUTION 5197644 MAGNESIUM CITR ATE Inactive PROMETHAZINE HCL 12.5 MG ORAL TABLET 1 tablet by mouth every 6 hours as needed for nausea/vomiting PROMETHAZINE HCL 12.5 MG ORA L TABLET 404086 PROMETHAZINE HCL Inactive PREDNISONE 20 MG ORAL TABLET 1 tablet twice daily for 2 days, then 1 tablet once daily for 2 days PREDNISONE 20 MG ORAL TABLET 812376 PREDNISONE Inactive ALPRAZOLAM 0.25 MG ORAL TABLET 1 tablet by mouth every 8 hours as needed for stress ALPRAZOLAM 0.25 MG ORAL TABLET 825866 ALPRA ZOLAM Inactive FLONASE 50 MCG/ACT NASAL SUSPENSION 1 spray each nostr il twice daily for allergies and runny nose until gone FLON ASE 50 MCG/ACT NASAL SUSPENSION 2059714 FLUTICASONE PROPIONATE Inactive PREDNISONE 20 MG ORAL TABLET 1 tablet daily for airway inflammat ion PREDNISONE 20 MG ORAL TABLET 272496 PREDNISONE [place] ctive NAPROXEN 500 MG ORAL TABLET Take 1 tab BID NAPROXEN 500 MG ORAL TABLET 235824 NAPROXEN Inactive ZOLOFT 50 MG ORAL TABLET 1 tablet by mouth daily 12/08 ZOLOFT 50 MG ORAL TABLET 486426 SERTRALINE HCL Inactive LOMOTIL 2.5-0.025 MG ORAL TABLET 1 tab po four times a day as needed for diarrhea LOMOTIL 2.5-0.025 MG ORAL TABLET 2059769 DIPHENOXYLATE-ATROPINE Inactive CETIRIZINE HCL 10 MG ORAL TABLET 1 po qd PRN Allergies CETIRIZINE HCL 10 MG ORAL TABLET 9075735 CETIRIZINE HCL Inactiv e TUSSIONEX PENNKINETIC ER 10-8 MG/5ML ORAL SUSPENSION E XTENDED RELEASE 5ml po q12hr PRN Cough TUSSIONEX PENNKINETI C ER 10-8 MG/5ML ORAL SUSPENSION EXTENDED RELEASE HYDROCOD POLST-CHLORPHEN POLST I nactive NEXPLANON IMPLANT right arm subcutaneously NEXPLANON IMPLANT ETONOGESTREL IMPL Inactive PROTONIX 40 MG ORAL TABLET DELAYED RELEASE 1 po q a.m. PROTONIX 40 MG ORAL TABLET DELAYED RELEASE 849404 PANTOPRAZOLE SODI UM Inactive CHERATUSSIN AC 100-10 MG/5ML ORAL SYRUP 1 tsp by mouth every 4 hours as needed for cough CHERATUSSIN AC 100-10 MG/5ML ORAL SYRUP 9 57349 GUAIFENESIN-CODEINE Inactive GUAIFENESIN DM 400-20 MG ORAL [...] tid K EFLEX 500 MG ORAL CAPSULE 338533 CEPHALEXIN Inactive DIFLUCAN 100 MG ORAL TABLET 1 tablet by mouth daily, R EPEAT 2ND DOSE IN 7 DAYS IF STILL SYMPTOMATIC DIFLUCAN 100 MG ORAL TABLET 45356 8 FLUCONAZOLE Inactive PROTONIX 40 MG ORAL TABLET DELAYED RELEASE 1 pill by m outh daily, for acid reflux PROTONIX 40 MG ORAL TABLET DELAYED RELEAS E 631047 PANTOPRAZOLE SODIUM Inactive ALPRAZOLAM 0.25 MG ORAL TABLET 1 tablet by mouth twice a day as needed for stress/anxiety ALPRAZOLAM 0.25 MG ORAL TABLET 014187 ALPRAZOLAM Inactive ESCITALOPRAM OXALATE 10 MG ORAL TABLET take 1 tab po qhs for mod ESCITALOPRAM OXALATE 10 MG ORAL TABLET 600071 ESCITALOP JO OXALATE Inactive AMOXICILLIN 500 MG ORAL TABLET take 1 tab po TID 08/05 AMOXICILLIN 500 MG ORAL TABLET 056955 AMOXICILLIN Inactive AMOXICILLIN 500 MG ORAL CAPSULE 1 tab by mouth 3 times daily 201 11/24/09 AMOXICILLIN 500 MG ORAL CAPSULE 452282 AMOXICILLIN Inactive ZITHROMAX 250 MG ORAL TABLET 2 po today, then 1 po q days 2-5 20 09/23/25 ZITHROMAX 250 MG ORAL TABLET 892372 AZITHROMYCIN Arlen ctive ZITHROMAX 250 MG ORAL TABLET 2 po today, then 1 po q days 2-5 20 10/03/08 ZITHROMAX 250 MG ORAL TABLET 790696 AZITHROMYCIN Arlen ctive AZITHROMYCIN 500 MG ORAL TABLET 1 PO q day x 6 days 20 03/02/23 AZITHROMYCIN 500 MG ORAL TABLET 2062040 AZITHROMYCIN Inactive BACTRIM 400-80 MG ORAL TABLET take one po BID BACTRIM 400- 80 MG ORAL TABLET 508024 SULFAMETHOXAZOLE-TRIMETHOPRIM Inactive AZITHROMYCIN 250 MG ORAL TABLET 2 po qd x 1 day, then 1 po q d x 4 days AZITHROMYCIN 250 MG ORAL TABLET 648192 AZITHROMY ALLISON Inactive PREDNISONE 20 MG ORAL TABLET 2 tabs daily for 3 days, 1 tab daily for 3 days, 1/2 tab daily for 2 days PREDNISONE 20 MG ORAL T ABLET 075507 PREDNISONE Inactive ZITHROMAX 250 MG ORAL TABLET 2 po today, then 1 po q days 2-5 20 06/08/16 ZITHROMAX 250 MG ORAL TABLET 087266 AZITHROMYCIN Arlen ctive FLAGYL 500 MG ORAL TABLET 1 tablet by mouth two times daily 2014 FLAGYL 500 MG ORAL TABLET 295546 METRONIDAZOLE Inacti ve AUGMENTIN 875-125 MG ORAL TABLET 1 tab by mouth twice daily with food AUGMENTIN 875-125 MG ORAL TABLET 255817 AMOXICIL ELSA-POT CLAVULANATE Inactive NAPROXEN 500 MG ORAL TABLET one tab PO BID NAPROXEN 500 MG ORAL TABLET 103670 NAPROXEN Inactive PREDNISONE 20 MG ORAL TABLET 2 tabs daily for 3 days, 1 tab daily for 3 days, 1/2 tab daily for 2 days PREDNISONE 20 MG ORAL T ABLET 901455 PREDNISONE Inactive AZITHROMYCIN 250 MG ORAL TABLET 2 po qd x 1 day, then 1 po q d x 4 days AZITHROMYCIN 250 MG ORAL TABLET 857106 AZITHROMY ALLISON Inactive PREDNISONE 20 MG ORAL TABLET 2 tabs daily for 3 days, 1 tab daily for 3 days, 1/2 tab daily for 2 days PREDNISONE 20 MG ORAL T ABLET 664011 PREDNISONE Inactive ZITHROMAX Z-EMIL 250 MG ORAL TABLET 2 today, then 1 daily for 4 d ays ZITHROMAX Z-EMIL 250 MG ORAL TABLET 502881 AZITHROMYCIN Inactive CEFDINIR 300 MG ORAL CAPSULE 1 po BID x 10 days 12/18 CEFDINIR 300 MG ORAL CAPSULE 074194 CEFDINIR Inactive CEFDINIR 300 MG ORAL CAPSULE 1 po BID x 10 days CEFDINIR 300 MG ORAL CAPSULE 758546 CEFDINIR Inactive PREDNISONE 20 MG ORAL TABLET 2 tabs daily for 3 days, 1 tab daily for 3 days, 1/2 tab daily for 2 days PREDNISONE 20 MG ORAL T ABLET 642645 PREDNISONE Inactive BACTRIM DS 800-160 MG ORAL TABLET 1 tab by mouth twice daily 201 05/02/30 BACTRIM DS 800-160 MG ORAL TABLET 336091 TRIMETHOPRIM-SULFAMETHOXAZOLE Inactive ZITHROMAX Z-EMIL 250 MG ORAL TABLET 2 today, then 1 daily for 4 d ays ZITHROMAX Z-EMIL 250 MG ORAL TABLET 340302 AZITHROMYCIN Inactive TAMIFLU 75 MG ORAL CAPSULE 1 po BID x 5 days 0 TAMIFLU 75 MG ORAL CAPSULE 090645 OSELTAMIVIR PHOSPHATE Inactive CEFDINIR 300 MG ORAL CAPSULE 1 po BID x 10 days 01/03 CEFDINIR 300 MG ORAL CAPSULE 20030127 CEFDINIR Inactive ZITHROMAX Z-EMIL 250 MG TABS Take two tablets today and then 1 tablet daily for 4 days ZITHROMAX Z-EMIL 250 MG TABS 289539 AZITHROM YCIN Inactive AMOXICILLIN 875 MG ORAL TABLET 1 tab by mouth twice daily AMOXICILLIN 875 MG ORAL TABLET 139462 AMOXICILLIN Inactive Advance Directives Directive Description Start Date PERMISSION TO SHARE Immunizations Vaccine Administration Date Value Standard Lance cription TB-PPD (tuberculin purified protein derivative), intra dermal [...] Value Unit Range Description blood pressure, diastolic 76 mm[Hg] BP kennedy [...] 11 .0-15.0 platelet count 280 THOUSAND/UL 10*3/mm3 163-152 9085/02/18 mean platelet volume 11.6 fL 7.5-12.5 Lab [...] urine, qualitative (urine test) Negative Office Visit: possible UTI or yeast infe [...] 0.2 Encounters Code Encounter Date Provider Facility CPT-14607 [id number] Vst-Est Level IV 13:45:38 C Talikiya Devi PA-C [facility] CPT-93057 [id number] Vst-Est Level III 09:41:31 CDT Arie Casper MD [facility]-72763 [id number] Vst-Est Level III 18:20:11 CDT Me lobito Russ [facility] CPT-20842 [id number] Vst-Est Level III 17:21:41 CDT Me lobito Russ [facility] [place] CPT-33695 [id number] Vst-Est Level IV 13:30:22 C DT Arie Casper MD [facility] CPT-81670 Level 4 Est. Patient 13:05:26 CDT Myrna maldonado MD [facility]-17175 68246-Mtz Vst-Est Level IV 20:50:21 C DT Arie Casper MD [facility] CPT-86300 Level 3 Est. Patient 11:49:34 ASSOCIATE PROFESSOR OF LAW Jessica boyd [facility] [place] CPT-59332 Level 3 Est. Patient 14:55:50 ASSOCIATE PROFESSOR [employer] LAW Jose Zhong MD [facility] CPT-05260 Level 3 Est. Patient 10:21:41 ASSOCIATE PROFESSOR OF LAW Arie mcqueen MD [facility] CPT-28131 Level 3 Est. Patient 11:35:15 ASSOCIATE PROFESSOR OF LAW Arie mcqueen MD [facility] CPT-78481 Level 3 Est. Patient 15:40:28 CDT Brii escalante [facility] [place] CPT-85469 Level 3 Est. Patient 16:40:36 CDT Arie mcqueen MD [facility] CPT-32869 Level 4 Est. Patient 15:29:22 ASSOCIATE PROFESSOR OF LAW Arie mcqueen MD [facility] CPT-81472 Level 3 Est. Patient 15:18:16 ASSOCIATE PROFESSOR OF LAW Jono W L ee [facility] CPT-51175 Level 4 Est. Patient 12:08:40 ASSOCIATE PROFESSOR OF LAW Brii Are ll [facility] [place] CPT-02573 Level 3 Est. Patient 09:24:42 CDT Brii Are ll [facility] [place] CPT-58181 Level 3 Est. Patient 09:12:56 CDT Arie mcqueen MD [facility] CPT-76654 Level 3 Est. Patient 16:40:54 CDT Jose Zhong MD [facility] CPT-59074 Level 2 Est. Patient 13:01:13 CDT Brii Are ll [facility] CPT-48690 Level 3 Est. Patient 11:55:30 ASSOCIATE PROFESSOR OF LAW Jono black [facility] CPT-63626 Level 3 Est. Patient 09:52:36 ASSOCIATE PROFESSOR OF LAW Brii Are ll [facility] CPT-66348 Level 3 Est. Patient 16:25:33 ASSOCIATE PROFESSOR OF LAW Rich Rosales MD [facility] CPT-77268 Level 3 Est. Patient 20:33:55 CDT Arie mcqueen MD [facility] CPT-64471 Level 3 Est. Patient 14:18:20 CDT Rich Rosales MD [facility] CPT-80975 Level 4 Est. Patient 09:34:31 CDT Arie mcqueen MD [facility] CPT-50022 Level 3 Est. Patient 09:08:55 ASSOCIATE PROFESSOR OF LAW Liliana vincent MD PhD [facility]-60287 Level 3 Est. Patient 16:44:07 ASSOCIATE PROFESSOR OF LAW Arie mcqueen MD [facility] CPT-55789 Level 3 Est. Patient 10:44:27 CDT Arie mcqueen MD [facility] CPT-91064 Level 3 Est. Patient 08:55:41 CDT Jose Zhong MD [facility] CPT-43993 Level 3 Est. Patient 18:37:31 CDT Liliana vincent MD PhD [facility] CPT-96604 Level 3 Est. Patient 14:28:23 CDT Abelardo HERNANDEZ [facility] CPT-55192 Level 3 Est. Patient 15:18:13 ASSOCIATE PROFESSOR OF LAW Arie mcqueen MD [facility] CPT-34377 Level 3 Est. Patient 10:11:29 ASSOCIATE PROFESSOR OF LAW Arie mcqueen MD [facility] CPT-59440 Level 3 Est. Patient 10:55:57 ASSOCIATE PROFESSOR OF LAW Jono black DO [facility] CPT-72928 Level 3 Est. 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 CPT-68143 Urine Dip (Floor Use Only) 12:20:20 [employer]OCIATE [employer] 201 06/03/24 CPT-36391 Sono Soft Tissue Head and Neck - XRAY US E ONLY 17:10:14 CDT CPT-38514 Ear Wash with irrigation 17:21:41 CDT 07/04 CPT-39907 Nexplanon Removal 15:40:28 CDT CPT-71175 Sono transvag pelvis non OB uterus ovari es cervix - XRAY USE ONLY 08:58:14 [employer]IATE [employer] CPT-01224 UA w micro - LAB USE ONLY 16:04:56 [employer]IATE [employer] 2015 CPT-33560 Wet Prep/GEN - LAB USE ONLY 16:04:56 [employer]OCIATE [employer] 20 08/10/29 CPT-61045 First Vx - Ix admin via ID I M or jet injects without counseling by physician 16:57:10 CDT CPT-04625 Fluzone Preservative Free Intramuscular Suspension 16:57:10 CDT CPT-J0696 Rocephin 1000 mg (Ceftriaxone) 11:49:23 CDT CPT-J1040 Depo Medrol 80 mg (Methyl Prednisolone A cetate) 11:49:23 CDT CPT-J1100 Decadron 8mg (Dexamethasone) 11:49:23 CDT 2 CPT-53226 Abx/Therapy Injection 11:49:23 CDT CPT-03956 Abx/Therapy Injection 11:49:23 CDT CPT-76877 Abd compl w upright 09:07:26 [employer]IATE [employer] CPT-63124 Ear Wash 16:12:47 [employer]IATE [employer] CPT-OV Office Visit 11:12:01 CDT CPT-OV Office Visit 15:30:23 CDT CPT-96575 Sono pelvis non OB uterus ovaries cervix 15:50:44 CDT CPT-91050 Hand comp min 3V 16:42:32 CDT CPT-49378 Abd compl w upright 12:17:01 CDT CPT-03745 Nexplanon Placement 15:07:39 [employer]OCIATE [employer] CPT-19430 Removal of IUD 15:07:39 [employer]OCIATE [employer] CPT-15591 TB Tubersol 12:09:32 CDT CPT-66434 TB Tubersol 13:55:43 CDT
--- OUTSIDE RECORDS SUMMARY | 2020-03-03 07:02 | XMS REPORT | Clinical Summary ---
Author Author Dena, Diamante Marcelo Organization [facility] [employer] [facility] [employer] Address Unknown Phone Unavailable Allergies, Adverse Reactions, [...] Unspecified sinusitis (chronic) CONTRACEPTIVE MANAGEMENT V25.09 Inactive Oits Roberto MD Encounter for other general counseling [...] with depression 300.4 Active Brii Ramirez l [employer] ENGINE[employer] Dysthymic disorder URI 465.9 Active Jono Gagnon [...] respiratory manifestations Sinusitis 473.9 Active Jessica Heaton [employer] ENGINEER Unspecified sinusitis (chronic) Other mixed anxiety [...] cerumen Tonsillar enlargement 474.11 Active Brii Arell [employer] ENGINEER Hypertrophy of tonsils alone Influenza Vaccination for Prophylaxis V04.81 Inactive Brii Arell [employer] ENGINEER Need for prophylactic vaccin ation and inoculation against influenza Submandibular lymph node 785.6 Active Brii Are ll [employer]ING ENGINEER Enlargement of lymph nodes Influenza Vaccination [...] 3-4 times per day 12/11 PYRIDOXINE HCL 42544056351 Active Myrna Roberto MD Active UNISOM SLEEPTABS 25 MG ORAL TABLET one tab PO qhs DOXYLAMINE SUCCINATE (SLEEP) 84605640918 Active Myrna Roberto MD Active TYLENOL 325 MG ORAL CAPSULE PRN ACETAMINOPHEN 000 23248163 Active Brii Pacheco Active ESCITALOPRAM OXALATE 10 MG ORAL TABLET take 1 tab po qhs for mod ESCITALOPRAM OXALATE 08422448889 No Longer Active Brii Pacheco Active ALPRAZOLAM 0.25 MG ORAL TABLET 1 tablet by mouth twice a day as needed for stress/anxiety ALPRAZOLAM 97339103567 No Longer Active Brii Pacheco Active PROTONIX 40 MG ORAL TABLET DELAYED RELEASE 1 pill by m outh daily, for acid reflux PANTOPRAZOLE SODIUM 58390732030 No Longer Activ e Brii Pacheco Active DIFLUCAN 100 MG ORAL TABLET 1 tablet by mouth daily, R EPEAT 2ND DOSE IN 7 DAYS IF STILL SYMPTOMATIC FLUCONAZOLE 56761573404 No Long er Active Nilam Weber Active KEFLEX 500 MG ORAL CAPSULE 1 po tid CEPHALEXI N 05295926902 No Longer Active Tali Devi PA-C Active CONCEPT DHA 53.5-38-1 MG ORAL CAPSULE 1 tablet daily [id number] 3 78613285343 Active Oxana Souza LPN Active AMOXICILLIN 875 MG ORAL TABLET 1 tab by mouth twice daily 1 AMOXICILLIN 47676316392 No Longer Active Brii Russ APRN Active TUSSIONEX PENNKINETIC ER 10-8 MG/5ML ORAL SUSPENSION E XTENDED RELEASE 5ml po q12hr PRN Cough HYDROCOD POLST-CHLORPHEN POLST 5 4695565255 No Longer Active Myrna Roberto MD Active ZITHROMAX Z-EMIL 250 MG TABS Take two tablets today and then 1 tablet daily for 4 days AZITHROMYCIN 95102551159 No Longer Active Flaco Rosales MD Active GUAIFENESIN DM 400-20 MG ORAL TABLET 1 pill by mouth t wice daily, if needed for cough DEXTROMETHORPHAN-GUAIFENESIN 68346151922 No Longer Active Rich Rosales MD Active CEFDINIR 300 MG ORAL CAPSULE 1 po BID x 10 days CEFDINIR 00126961161 No Longer Active Jesisca Heaton APRN Active CHERATUSSIN AC 100-10 MG/5ML ORAL SYRUP 1 tsp by mouth every 4 hours as needed for cough GUAIFENESIN-CODEINE 11269136381 No Longe r Active Jessica Heaton APRN Active TAMIFLU 75 MG ORAL CAPSULE 1 po BID x 5 days 0 OSELTAMIVIR PHOSPHATE 59349212183 No Longer Active Jose Zhong MD Activ e ZITHROMAX Z-EMIL 250 MG ORAL TABLET 2 today, then 1 daily for 4 d ays AZITHROMYCIN 85837224297 No Longer Active Arie Casper MD Active PROTONIX 40 MG ORAL TABLET DELAYED RELEASE 1 po q a.m. PANTOPRAZOLE SODIUM 68963517707 No Longer Active Arie Casper MD Active BACTRIM DS 800-160 MG ORAL TABLET 1 tab by mouth twice daily 201 05/02/30 TRIMETHOPRIM-SULFAMETHOXAZOLE 28639984037 No Longer Active R KELLIE Sandoval Active NEXPLANON IMPLANT right arm subcutaneously ETONOGESTREL IMPL 54442565041 No Longer Active Brii Russ APRN Active TUSSIONEX PENNKINETIC ER 10-8 MG/5ML ORAL SUSPENSION E XTENDED RELEASE 5ml po q12hr PRN Cough HYDROCOD POLST-CHLORPHEN POLST 5 9764528262 No Longer Active Brii Russ APRN Active CETIRIZINE HCL 10 MG ORAL TABLET 1 po qd PRN Allergies CETIRIZINE HCL 18842728118 No Longer Active Brii Russ APRN Activ e PREDNISONE 20 MG ORAL TABLET 2 tabs daily for 3 days, 1 tab daily for 3 days, 1/2 tab daily for 2 days PREDNISONE 69770064230 No Longer Active Arie Casper MD Active LOMOTIL 2.5-0.025 MG ORAL TABLET 1 tab po four times a day as needed for diarrhea DIPHENOXYLATE-ATROPINE 06007275613 No Lo nger Active Arie Casper MD Active ZOLOFT 50 MG ORAL TABLET 1 tablet by mouth daily 12/08 SERTRALINE HCL 31858560007 No Longer Active Arie Casper MD Ac tive NAPROXEN 500 MG ORAL TABLET Take 1 tab BID NAPR OXEN 13292372939 No Longer Active Arie Casper MD Active CEFDINIR 300 MG ORAL CAPSULE 1 po BID x 10 days CEFDINIR 14485466716 No Longer Active Brii Russ APRN Active PREDNISONE 20 MG ORAL TABLET 1 tablet daily for airway inflammat ion PREDNISONE 40523054770 No Longer Active Brii Russ APRN A ctive CEFDINIR 300 MG ORAL CAPSULE 1 po BID x 10 days CEFDINIR 48190706503 No Longer Active Jono Gagnon DO Active FLONASE 50 MCG/ACT NASAL SUSPENSION 1 spray each nostr il twice daily for allergies and runny nose until gone FLUT ICASONE PROPIONATE 87137580846 No Longer Active Jono Gagnon DO Active ALPRAZOLAM 0.25 MG ORAL TABLET 1 tablet by mouth every 8 hours as needed for stress ALPRAZOLAM 89737077441 No Longer Active Jono Gagnon DO Active ZITHROMAX Z-EMIL 250 MG ORAL TABLET 2 today, then 1 daily for 4 d ays AZITHROMYCIN 35651211292 No Longer Active Arie Casper MD Active PREDNISONE 20 MG ORAL TABLET 2 tabs daily for 3 days, 1 tab daily for 3 days, 1/2 tab daily for 2 days PREDNISONE 57289625484 No Longer Active Brii Russ APRN Active PREDNISONE 20 MG ORAL TABLET 1 tablet twice daily for 2 days, then 1 tablet once daily for 2 days PREDNISONE 97397538337 No Longer Active Biri Russ APRN Active PROMETHAZINE HCL 12.5 MG ORAL TABLET 1 tablet by mouth every 6 hours as needed for nausea/vomiting PROMETHAZINE HCL 21258552577 No L onger Active Jono Gagnon DO Active CITRATE OF MAGNESIA ORAL SOLUTION 1 bottle today for constipatio n MAGNESIUM CITRATE 75548133667 No Longer Active Jono Gagnon DO Active ZOFRAN 4 MG ORAL TABLET 1 TAB PO Q 6 HRS PRN NAUSEA 20 07/10/15 ONDANSETRON HCL 42748591984 No Longer Active Brii uRss APRN Acti ve LOMOTIL 2.5-0.025 MG ORAL TABLET 1 to 2 four times a day as needed for diarrhea DIPHENOXYLATE-ATROPINE 04698634132 No Longer Active January Russ APRN Active AMOXICILLIN 500 MG ORAL TABLET 2 tabs twice a day for 10 days 20 07/09/11 AMOXICILLIN 75659092512 No Longer Active Brii Russ APRN Active CYCLOBENZAPRINE HCL 10 MG ORAL TABLET 1/2 - 1 tablet b y mouth three times daily as needed for muscle spasm/pain CYCLOBENZAPRINE HCL 07472981441 No Longer Active Arie Casper MD Active LOMOTIL 2.5-0.025 MG ORAL TABLET 1 to 2 four times a day as needed for diarrhea DIPHENOXYLATE-ATROPINE 73947176290 No Longer Active Fozia Casper MD Active MACROBID 100 MG ORAL CAPSULE 1 cap by mouth twice daily NITROFURANTOIN MONOHYD MACRO 25434561297 No Longer Active Arie Casper MD Active ZYRTEC ALLERGY 10 MG ORAL CAPSULE 1 po qd CE TIRIZINE HCL 34377930582 No Longer Active Arie Casper MD Active AZITHROMYCIN 250 MG ORAL TABLET 2 po qd x 1 day, then 1 po q d x 4 days AZITHROMYCIN 72904378486 No Longer Active Jillina Fra naomi CREOSOTING ENGINEER Active PREDNISONE 20 MG ORAL TABLET 2 tabs daily for 3 days, 1 tab daily for 3 days, 1/2 tab daily for 2 days PREDNISONE 87112756131 No Longer Active Jillina Ottoniell CREOSOTING ENGINEER Active PROMETHAZINE HCL 25 MG ORAL TABLET 1 four times a day as nee ded for vomiting PROMETHAZINE HCL 57342972261 No Longer Active Myrna Roberto MD Active BACTRIM DS 800-160 MG ORAL TABLET 1 twice a day 05/30 SULFAMETHOXAZOLE-TRIMETHOPRIM 82895088993 No Longer Active Myrna Roberto MD Active VICKS DAYQUIL SEVERE COLD/FLU TABLET 1 tab every 6 hours prn 201 02/22/17 [id number] TABS 01382113357 No Longer Active K fany Roberto MD Active GUAIFENESIN-CODEINE 100-10 MG/5ML ORAL SYRUP 2 tsp every 6 hours prn GUAIFENESIN-CODEINE 20996690837 No Longer Active Myrna Roberto MD Active NAPROXEN 500 MG ORAL TABLET one tab PO BID NAPR OXEN 22965904580 No Longer Active Myrna Roberto MD Active AUGMENTIN 875-125 MG ORAL TABLET 1 tab by mouth twice daily with food AMOXICILLIN-POT CLAVULANATE 63924062698 No Longer Act zaid Liliana Estrada MD PhD Active AMOXICILLIN 500 MG ORAL CAPSULE 1 tab by mouth 3 times daily 201 02/21/05 AMOXICILLIN 91014037195 No Longer Active Liliana Estrada MD PhD Active TESSALON PERLES 100 MG ORAL CAPSULE 1 tablet by mouth 3 times da cory BENZONATATE 10267006360 No Longer Active Liliana Estrada MD PhD Active FLAGYL 500 MG ORAL TABLET 1 tablet by mouth two times daily 2014 METRONIDAZOLE 54789066868 No Longer Active Nilam Doran tive ZITHROMAX 250 MG ORAL TABLET 2 po today, then 1 po q days 2-5 20 06/08/16 AZITHROMYCIN 24395593903 No Longer Active Arie Casper MD Active VITAMINS 0.8 MG ORAL TABLET take 1 tab po qday [id number] 01899035634 No Longer Active Arie Casper MD Active IBUPROFEN 800 MG ORAL TABLET take one po Q 8 hours 201 02/01/16 IBUPROFEN 01340427157 No Longer Active Arie Casper MD Acti ve [facility] TUSSIN COUGH/COLD CF 5-10-100 MG/5ML ORAL LIQUID 2 teasp oons every 4 hours [id number] 81155361455 No Longer Active Blaine Casper MD Active COMTREX COLD/COUGH DAY/NITE MS 5-2-10-325 MG ORAL 2 caps deja ry 4 hours [id number] 99840633277 No Longer Active Landon Casper MD Active CHLORASEPTIC MAX SORE THROAT 15-10 MG MOUTH/THROAT LOZENGE 1 every 2 hours prn BENZOCAINE-MENTHOL 22361696524 No Longer Active Arie Casper MD Active PREDNISONE 20 MG ORAL TABLET 2 tabs daily for 3 days, 1 tab daily for 3 days, 1/2 tab daily for 2 days PREDNISONE 38394476567 No Longer Active Jose Zhogn MD Active AZITHROMYCIN 250 MG ORAL TABLET 2 po qd x 1 day, then 1 po q d x 4 days AZITHROMYCIN 66314105163 No Longer Active Jose Mcwilliams MD Active ZOFRAN ODT 4 MG ORAL TABLET DISINTEGRATING 1 po q6hr PRN Nausea ONDANSETRON 87501206844 No Longer Active Rich Rosales MD Active ZOFRAN 4 MG ORAL TABLET 1 tablet every 4 hours ONDANSETRON HCL 01785764985 No Longer Active Rich Rosales MD Activ e MUCINEX 600 MG ORAL TABLET EXTENDED RELEASE 12 HOUR Ta ke 1-2 tablets every 12 hours GUAIFENESIN 27863816119 No Longer Active Rich Rosales MD Active BACTRIM 400-80 MG ORAL TABLET take one po BID SULFAMETHOXAZOLE-TRIMETHOPRIM 21878008224 No Longer Active Abelardo HERNANDEZ Active AZITHROMYCIN 500 MG ORAL TABLET 1 PO q day x 6 days 20 03/02/23 AZITHROMYCIN 30893149312 No Longer Active Tin HERNANDEZ Activ e ZITHROMAX 250 MG ORAL TABLET 2 po today, then 1 po q days 2-5 20 10/03/08 AZITHROMYCIN 77326598224 No Longer Active Arie Casper MD Active ZITHROMAX 250 MG ORAL TABLET 2 po today, then 1 po q days 2-5 20 09/23/25 AZITHROMYCIN 74943823291 No Longer Active Arie Casper MD Active AMOXICILLIN 500 MG ORAL CAPSULE 1 tab by mouth 3 times daily 201 11/24/09 AMOXICILLIN 62145192838 No Longer Active Arie Casper MD Active BACTRIM DS 800-160 MG ORAL TABLET 1 tab by mouth twice daily 201 11/03/14 TRIMETHOPRIM-SULFAMETHOXAZOLE 53200665551 No Longer Active Fozia Casper MD Active AMOXICILLIN 500 MG ORAL TABLET take 1 tab po TID 08/05 AMOXICILLIN 69939662851 No Longer Active Arie Casper MD Acti [...] 4 hours ZOFRAN 4 MG ORAL TABLET 577043 ONDANSETRON HCL Inactive ZOFRAN ODT 4 MG [...] COLD/COUGH DAY/NITE MS 5-2-10-325 MG ORA L [id number] Inactive [facility] TUSSIN COUGH/COLD CF 5-10-100 MG/5ML ORAL LIQUID 2 teasp oons every 4 hours [facility] TUSSIN COUGH/COLD CF 5-10-100 MG/5ML ORAL LI QUID [id number] Inactive IBUPROFEN 800 MG ORAL TABLET take one po Q 8 hours 201 02/01/16 IBUPROFEN 800 MG ORAL TABLET IBUPROFEN Inactive VITAMINS 0.8 MG ORAL TABLET take 1 tab po qday VITAMINS 0.8 MG ORAL TABLET [id number] E-FA Inactive TESSALON PERLES 100 MG ORAL CAPSULE 1 tablet by mouth 3 times da cory TESSALON PERLES 100 MG ORAL CAPSULE 19730630 BENZONATATE Inactive AMOXICILLIN 500 MG ORAL CAPSULE 1 tab by mouth 3 times daily 201 02/21/05 AMOXICILLIN 500 MG ORAL CAPSULE 091114 AMOXICILLIN Inactive GUAIFENESIN-CODEINE 100-10 MG/5ML ORAL SYRUP 2 tsp every 6 hours prn GUAIFENESIN-CODEINE 100-10 MG/5ML ORAL SYRUP 008279 GUAIFENESIN-CODEINE Inactive VICKS DAYQUIL SEVERE COLD/FLU TABLET 1 tab every 6 hours prn 201 02/22/17 VICKS DAYQUIL SEVERE COLD/FLU TABLET PHENYLEPHRI [id number] TABS Inactive BACTRIM DS 800-160 MG ORAL TABLET 1 twice a day 05/30 BACTRIM DS 800-160 MG ORAL TABLET 520582 SULFAMETHOXAZOLE-TRIMETHOPRIM Inactiv e PROMETHAZINE HCL 25 MG ORAL TABLET 1 four times a day as nee ded for vomiting PROMETHAZINE HCL 25 MG ORAL TABLET 161768 PROMETHAZINE HCL Inactive ZYRTEC ALLERGY 10 MG ORAL CAPSULE 1 po qd ZYRTEC ALLERGY 10 MG ORAL CAPSULE CETIRIZINE HCL Inactive MACROBID 100 MG ORAL CAPSULE 1 cap by mouth twice daily MACROBID 100 MG ORAL CAPSULE 3198975 NITROFURANTOIN MONOHYD MACRO In active LOMOTIL 2.5-0.025 MG ORAL TABLET 1 to 2 four times a day as needed for diarrhea LOMOTIL 2.5-0.025 MG ORAL TABLET 9805485 DIPHENOXYLATE-ATROPINE Inactive CYCLOBENZAPRINE HCL 10 MG ORAL TABLET 1/2 - 1 tablet b y mouth three times daily as needed for muscle spasm/pain CYCLOBEN ZAPRINE HCL 10 MG ORAL TABLET 229826 CYCLOBENZAPRINE HCL Inactive AMOXICILLIN 500 MG ORAL TABLET 2 tabs twice a day for 10 days 20 07/09/11 AMOXICILLIN 500 MG ORAL TABLET 591080 AMOXICILLIN I nactive LOMOTIL 2.5-0.025 MG ORAL TABLET 1 to 2 four times a day as needed for diarrhea LOMOTIL 2.5-0.025 MG ORAL TABLET 6826382 DIPHENOXYLATE-ATROPINE Inactive ZOFRAN 4 MG ORAL TABLET 1 TAB PO Q 6 HRS PRN NAUSEA 20 07/10/15 ZOFRAN 4 MG ORAL TABLET 162361 ONDANSETRON HCL Inactive CITRATE OF MAGNESIA ORAL SOLUTION 1 bottle today for constipatio n CITRATE OF MAGNESIA ORAL SOLUTION 7640507 MAGNESIUM CITR ATE Inactive PROMETHAZINE HCL 12.5 MG ORAL TABLET 1 tablet by mouth every 6 hours as needed for nausea/vomiting PROMETHAZINE HCL 12.5 MG ORA L TABLET 130644 PROMETHAZINE HCL Inactive PREDNISONE 20 MG ORAL TABLET 1 tablet twice daily for 2 days, then 1 tablet once daily for 2 days PREDNISONE 20 MG ORAL TABLET 370546 PREDNISONE Inactive ALPRAZOLAM 0.25 MG ORAL TABLET 1 tablet by mouth every 8 hours as needed for stress ALPRAZOLAM 0.25 MG ORAL TABLET 978040 ALPRA ZOLAM Inactive FLONASE 50 MCG/ACT NASAL SUSPENSION 1 spray each nostr il twice daily for allergies and runny nose until gone FLON ASE 50 MCG/ACT NASAL SUSPENSION 9906487 FLUTICASONE PROPIONATE Inactive PREDNISONE 20 MG ORAL TABLET 1 tablet daily for airway inflammat ion PREDNISONE 20 MG ORAL TABLET 772970 PREDNISONE [place] ctive NAPROXEN 500 MG ORAL TABLET Take 1 tab BID NAPROXEN 500 MG ORAL TABLET 371071 NAPROXEN Inactive ZOLOFT 50 MG ORAL TABLET 1 tablet by mouth daily 12/08 ZOLOFT 50 MG ORAL TABLET 398292 SERTRALINE HCL Inactive LOMOTIL 2.5-0.025 MG ORAL TABLET 1 tab po four times a day as needed for diarrhea LOMOTIL 2.5-0.025 MG ORAL TABLET 8194998 DIPHENOXYLATE-ATROPINE Inactive CETIRIZINE HCL 10 MG ORAL TABLET 1 po qd PRN Allergies CETIRIZINE HCL 10 MG ORAL TABLET 4836477 CETIRIZINE HCL Inactiv e TUSSIONEX PENNKINETIC ER 10-8 MG/5ML ORAL SUSPENSION E XTENDED RELEASE 5ml po q12hr PRN Cough TUSSIONEX PENNKINETI C ER 10-8 MG/5ML ORAL SUSPENSION EXTENDED RELEASE HYDROCOD POLST-CHLORPHEN POLST I nactive NEXPLANON IMPLANT right arm subcutaneously NEXPLANON IMPLANT ETONOGESTREL IMPL Inactive PROTONIX 40 MG ORAL TABLET DELAYED RELEASE 1 po q a.m. PROTONIX 40 MG ORAL TABLET DELAYED RELEASE 606539 PANTOPRAZOLE SODI UM Inactive CHERATUSSIN AC 100-10 MG/5ML ORAL SYRUP 1 tsp by mouth every 4 hours as needed for cough CHERATUSSIN AC 100-10 MG/5ML ORAL SYRUP 9 49032 GUAIFENESIN-CODEINE Inactive GUAIFENESIN DM 400-20 MG ORAL [...] tid K EFLEX 500 MG ORAL CAPSULE 099843 CEPHALEXIN Inactive DIFLUCAN 100 MG ORAL TABLET 1 tablet by mouth daily, R EPEAT 2ND DOSE IN 7 DAYS IF STILL SYMPTOMATIC DIFLUCAN 100 MG ORAL TABLET 01133 8 FLUCONAZOLE Inactive PROTONIX 40 MG ORAL TABLET DELAYED RELEASE 1 pill by m outh daily, for acid reflux PROTONIX 40 MG ORAL TABLET DELAYED RELEAS E 024236 PANTOPRAZOLE SODIUM Inactive ALPRAZOLAM 0.25 MG ORAL TABLET 1 tablet by mouth twice a day as needed for stress/anxiety ALPRAZOLAM 0.25 MG ORAL TABLET 656632 ALPRAZOLAM Inactive ESCITALOPRAM OXALATE 10 MG ORAL TABLET take 1 tab po qhs for mod ESCITALOPRAM OXALATE 10 MG ORAL TABLET 584452 ESCITALOP JO OXALATE Inactive AMOXICILLIN 500 MG ORAL TABLET take 1 tab po TID 08/05 AMOXICILLIN 500 MG ORAL TABLET 138191 AMOXICILLIN Inactive AMOXICILLIN 500 MG ORAL CAPSULE 1 tab by mouth 3 times daily 201 11/24/09 AMOXICILLIN 500 MG ORAL CAPSULE 793583 AMOXICILLIN Inactive ZITHROMAX 250 MG ORAL TABLET 2 po today, then 1 po q days 2-5 20 09/23/25 ZITHROMAX 250 MG ORAL TABLET 830738 AZITHROMYCIN Arlen ctive ZITHROMAX 250 MG ORAL TABLET 2 po today, then 1 po q days 2-5 20 10/03/08 ZITHROMAX 250 MG ORAL TABLET 371549 AZITHROMYCIN Arlen ctive AZITHROMYCIN 500 MG ORAL TABLET 1 PO q day x 6 days 20 03/02/23 AZITHROMYCIN 500 MG ORAL TABLET 6469071 AZITHROMYCIN Inactive BACTRIM 400-80 MG ORAL TABLET take one po BID BACTRIM 400- 80 MG ORAL TABLET 847832 SULFAMETHOXAZOLE-TRIMETHOPRIM Inactive AZITHROMYCIN 250 MG ORAL TABLET 2 po qd x 1 day, then 1 po q d x 4 days AZITHROMYCIN 250 MG ORAL TABLET 586712 AZITHROMY ALLISON Inactive PREDNISONE 20 MG ORAL TABLET 2 tabs daily for 3 days, 1 tab daily for 3 days, 1/2 tab daily for 2 days PREDNISONE 20 MG ORAL T ABLET 163357 PREDNISONE Inactive ZITHROMAX 250 MG ORAL TABLET 2 po today, then 1 po q days 2-5 20 06/08/16 ZITHROMAX 250 MG ORAL TABLET 965785 AZITHROMYCIN Arlen ctive FLAGYL 500 MG ORAL TABLET 1 tablet by mouth two times daily 2014 FLAGYL 500 MG ORAL TABLET 257184 METRONIDAZOLE Inacti ve AUGMENTIN 875-125 MG ORAL TABLET 1 tab by mouth twice daily with food AUGMENTIN 875-125 MG ORAL TABLET 869354 AMOXICIL ELSA-POT CLAVULANATE Inactive NAPROXEN 500 MG ORAL TABLET one tab PO BID NAPROXEN 500 MG ORAL TABLET 420762 NAPROXEN Inactive PREDNISONE 20 MG ORAL TABLET 2 tabs daily for 3 days, 1 tab daily for 3 days, 1/2 tab daily for 2 days PREDNISONE 20 MG ORAL T ABLET 688714 PREDNISONE Inactive AZITHROMYCIN 250 MG ORAL TABLET 2 po qd x 1 day, then 1 po q d x 4 days AZITHROMYCIN 250 MG ORAL TABLET 485938 AZITHROMY ALLISON Inactive PREDNISONE 20 MG ORAL TABLET 2 tabs daily for 3 days, 1 tab daily for 3 days, 1/2 tab daily for 2 days PREDNISONE 20 MG ORAL T ABLET 360023 PREDNISONE Inactive ZITHROMAX Z-EMIL 250 MG ORAL TABLET 2 today, then 1 daily for 4 d ays ZITHROMAX Z-EMIL 250 MG ORAL TABLET 457239 AZITHROMYCIN Inactive CEFDINIR 300 MG ORAL CAPSULE 1 po BID x 10 days 12/18 CEFDINIR 300 MG ORAL CAPSULE 894342 CEFDINIR Inactive CEFDINIR 300 MG ORAL CAPSULE 1 po BID x 10 days CEFDINIR 300 MG ORAL CAPSULE 904593 CEFDINIR Inactive PREDNISONE 20 MG ORAL TABLET 2 tabs daily for 3 days, 1 tab daily for 3 days, 1/2 tab daily for 2 days PREDNISONE 20 MG ORAL T ABLET 096095 PREDNISONE Inactive BACTRIM DS 800-160 MG ORAL TABLET 1 tab by mouth twice daily 201 05/02/30 BACTRIM DS 800-160 MG ORAL TABLET 787550 TRIMETHOPRIM-SULFAMETHOXAZOLE Inactive ZITHROMAX Z-EMIL 250 MG ORAL TABLET 2 today, then 1 daily for 4 d ays ZITHROMAX Z-EMIL 250 MG ORAL TABLET 106686 AZITHROMYCIN Inactive TAMIFLU 75 MG ORAL CAPSULE 1 po BID x 5 days 0 TAMIFLU 75 MG ORAL CAPSULE 540848 OSELTAMIVIR PHOSPHATE Inactive CEFDINIR 300 MG ORAL CAPSULE 1 po BID x 10 days 01/03 CEFDINIR 300 MG ORAL CAPSULE 20030127 CEFDINIR Inactive ZITHROMAX Z-EMIL 250 MG TABS Take two tablets today and then 1 tablet daily for 4 days ZITHROMAX Z-EMIL 250 MG TABS 521910 AZITHROM YCIN Inactive AMOXICILLIN 875 MG ORAL TABLET 1 tab by mouth twice daily AMOXICILLIN 875 MG ORAL TABLET 537296 AMOXICILLIN Inactive Advance Directives Directive Description Start [...] Name Value Unit Range Description Lab Report: CBC W/DIFF - Hematology leukocyte [...] 0.2 Encounters Code Encounter Date Provider Facility CPT-70571 [id number] Vst-Est Level IV 13:45:[address] Tali Devi PA-C [facility] CPT-00039 [id number] Vst-Est Level III 09:41:31 CDT Arie Casper MD [facility] CPT-01661 [id number] Vst-Est Level III 18:20:11 CDT Me lobito Russ [facility] CPT-15051 [id number] Vst-Est Level III 17:21:41 CDT Me lobito Russ [facility]-24123 83410-Rpi Vst-Est Level IV 13:30:22 C DT Arie Casper MD [facility] CPT-42843 Level 4 Est. Patient 13:05:26 CDT Myrna maldonado [facility] CPT-29956 [id number] Vst-Est Level IV 20:50:21 C DT Arie Casper MD [facility] CPT-57011 Level 3 Est. Patient 11:49:34 CHARGE ENTRY SPECIALIST Jessica boyd [facility] CPT-48948 Level 3 Est. Patient 14:55:50 CHARGE ENTRY SPECIALIST Jose Zhong MD [facility] CPT-99240 Level 3 Est. Patient 10:21:41 CHARGE ENTRY SPECIALIST Arie mcqueen MD [facility] CPT-97965 Level 3 Est. Patient 11:35:15 CHARGE ENTRY SPECIALIST Arie mcqueen MD [facility] CPT-66060 Level 3 Est. Patient 15:40:28 CDT Brii escalante [facility] CPT-55462 Level 3 Est. Patient 16:40:36 CDT Arie mcqueen MD [facility] CPT-09470 Level 4 Est. Patient 15:29:22 CHARGE ENTRY SPECIALIST Arie mcqueen MD [facility] CPT-55777 Level 3 Est. Patient 15:18:16 CHARGE ENTRY SPECIALIST Jono black DO [facility] CPT-45418 Level 4 Est. Patient 12:08:40 CHARGE ENTRY SPECIALIST Brii Are ll [facility] CPT-75545 Level 3 Est. Patient 09:24:42 CDT Brii Are ll CREOSOTING ENGINEER [facility] CPT-93626 Level 3 Est. Patient 09:12:56 CDT Arie mcqueen MD [facility] CPT-42743 Level 3 Est. Patient 16:40:54 CDT Jose Zhong MD [facility] CPT-05254 Level 2 Est. Patient 13:01:13 CDT Brii Are ll [facility] CPT-14390 Level 3 Est. Patient 11:55:30 CHARGE ENTRY SPECIALIST Jono black [facility] CPT-71014 Level 3 Est. Patient 09:52:36 CHARGE ENTRY SPECIALIST Brii Are ll [facility] [place] CPT-86301 Level 3 Est. Patient 16:25:33 CHARGE ENTRY SPECIALIST Rich Rosales MD [facility] CPT-69291 Level 3 Est. Patient 20:33:55 CDT Arie mcqueen MD [facility] CPT-60108 Level 3 Est. Patient 14:18:20 CDT Rich Rosales MD [facility] CPT-64099 Level 4 Est. Patient 09:34:31 CDT Arie mcqueen MD [facility] CPT-32128 Level 3 Est. Patient 09:08:55 CHARGE ENTRY SPECIALIST Liliana vincent MD PhD [facility] CPT-40373 Level 3 Est. Patient 16:44:07 CHARGE ENTRY SPECIALIST Arie mcqueen MD [facility] CPT-15698 Level 3 Est. Patient 10:44:27 CDT Arie mcqueen MD [facility] CPT-61475 Level 3 Est. Patient 08:55:41 CDT Jose Zhong MD [facility] CPT-33440 Level 3 Est. Patient 18:37:31 CDT Liliana vincent MD PhD [facility] CPT-46879 Level 3 Est. Patient 14:28:23 CDT Abelardo HERNANDEZ [facility] CPT-92453 Level 3 Est. Patient 15:18:13 CHARGE ENTRY SPECIALIST Arie mcqueen MD [facility] CPT-08246 Level 3 Est. Patient 10:11:29 CHARGE ENTRY SPECIALIST Arie mcqueen MD [facility] CPT-22069 Level 3 Est. Patient 10:55:57 CHARGE ENTRY SPECIALIST Jono black DO [facility] CPT-49389 Level 3 Est. Patient 17:29:05 CDT Arie mcqueen MD [facility] Procedures Code Procedure Name Date Entry Date Standard Desc ription CPT-23003 [facility] Urine - MARC ONLY 12:13:59 CHARGE ENTRY SPECIALIST 12/11 CPT-85373 Spec Collection and Handling Fee 12:13:[address] CPT-98327 Visit 12:13:59 CHARGE ENTRY SPECIALIST CPT-33687 First Vx - Ix admin via ID I M or jet injects without counseling by physician 13:00:15 CHARGE ENTRY SPECIALIST CPT-06556 Flulaval Intramuscular Injectable 13:00:15 CHARGE ENTRY SPECIALIST CPT-17270 Urine Dip (Floor Use Only) 12:20:20 CHARGE ENTRY SPECIALIST 201 06/03/24 CPT-66341 Sono Soft Tissue Head and Neck - XRAY US E ONLY 17:10:14 CDT CPT-49550 Ear Wash with irrigation 17:21:41 CDT 07/04 CPT-33505 Nexplanon Removal 15:40:28 CDT CPT-07524 Sono transvag pelvis non OB uterus ovari es cervix - XRAY USE ONLY 08:58:14 CHARGE ENTRY SPECIALIST CPT-35177 UA w micro - LAB USE ONLY 16:04:56 CHARGE ENTRY SPECIALIST 2015 CPT-46253 Wet Prep/GEN - LAB USE ONLY 16:04:56 CHARGE ENTRY SPECIALIST 20 08/10/29 CPT-75771 First Vx - Ix admin via ID I M or jet injects without counseling by physician 16:57:10 CDT CPT-53406 Fluzone Preservative Free Intramuscular Suspension 16:57:10 CDT CPT-J0696 Rocephin 1000 mg (Ceftriaxone) 11:49:23 CDT CPT-J1040 Depo Medrol 80 mg (Methyl Prednisolone A cetate) 11:49:23 CDT CPT-J1100 Decadron 8mg (Dexamethasone) 11:49:23 CDT 2 CPT-17057 Abx/Therapy Injection 11:49:23 CDT CPT-21453 Abx/Therapy Injection 11:49:23 CDT CPT-53451 Abd compl w upright 09:07:26 CHARGE ENTRY SPECIALIST CPT-12980 Ear Wash 16:12:47 CHARGE ENTRY SPECIALIST CPT-OV Office Visit 11:12:01 CDT CPT-OV Office Visit 15:30:23 CDT CPT-53879 Sono pelvis non OB uterus ovaries cervix 15:50:44 CDT CPT-06866 Hand comp min 3V 16:42:32 CDT CPT-23237 Abd compl w upright 12:17:01 CDT CPT-20158 Nexplanon Placement 15:07:39 CHARGE ENTRY SPECIALIST CPT-66581 Removal of IUD 15:07:39 CHARGE ENTRY SPECIALIST CPT-70581 TB Tubersol 12:09:32 CDT CPT-24156 TB Tubersol 13:55:43 CDT
--- OUTSIDE RECORDS SUMMARY | 2020-03-03 07:02 | XMS REPORT | Clinical Summary ---
Author Author Admin, Diamante Marcelo Organization [employer] Address Unknown Phone Unavailable Allergies, Adverse Reactions, [...] with depression 300.4 Active Brii Ramirez l BRAND ADVISOR Dysthymic disorder URI 465.9 Active Jono Gagnon [...] respiratory manifestations Sinusitis 473.9 Active Jessica Heaton BRAND ADVISOR Unspecified sinusitis (chronic) Other mixed anxiety 300.00 [...] cerumen Tonsillar enlargement 474.11 Active Brii Arell BRAND ADVISOR Hypertrophy of tonsils alone Influenza Vaccination for Prophylaxis V04.81 Inactive Brii Arell BRAND ADVISOR Need for prophylactic vaccin ation and inoculation against influenza Submandibular lymph node 785.6 Active Brii Are ll BRAND ADVISOR Enlargement of lymph nodes Influenza Vaccination for [...] 3-4 times per day 12/11 PYRIDOXINE HCL 60611764518 Active Myrna Roberto MD Active UNISOM SLEEPTABS 25 MG ORAL TABLET one tab PO qhs DOXYLAMINE SUCCINATE (SLEEP) 67632704597 Active Myrna Roberto MD Active TYLENOL 325 MG ORAL CAPSULE PRN ACETAMINOPHEN 000 26796898 Active Brii Pacheco Active ESCITALOPRAM OXALATE 10 MG ORAL TABLET take 1 tab po qhs for mod ESCITALOPRAM OXALATE 84518085809 No Longer Active Brii Pacheco Active ALPRAZOLAM 0.25 MG ORAL TABLET 1 tablet by mouth twice a day as needed for stress/anxiety ALPRAZOLAM 39516214794 No Longer Active Brii Pacheco Active PROTONIX 40 MG ORAL TABLET DELAYED RELEASE 1 pill by m outh daily, for acid reflux PANTOPRAZOLE SODIUM 10176610252 No Longer Activ e Brii Tara Active DIFLUCAN 100 MG ORAL TABLET 1 tablet by mouth daily, R EPEAT 2ND DOSE IN 7 DAYS IF STILL SYMPTOMATIC FLUCONAZOLE 51053348024 No Long er Active Nilam Weber Active KEFLEX 500 MG ORAL CAPSULE 1 po tid CEPHALEXI N 88315426462 No Longer Active Tali Devi PA-C Active CONCEPT DHA 53.5-38-1 MG ORAL CAPSULE 1 tablet daily [id number]-OMEGA 3 21676415955 Active 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 AMOXICILLIN 875 MG ORAL TABLET 1 tab by mouth twice daily 1 AMOXICILLIN 90556353955 No Longer Active Brii Russ BRAND ADVISOR Active TUSSIONEX PENNKINETIC ER 10-8 MG/5ML ORAL SUSPENSION E XTENDED RELEASE 5ml po q12hr PRN Cough HYDROCOD POLST-CHLORPHEN POLST 5 0092055183 No Longer Active Myrna Roberto MD Active ZITHROMAX Z-EMIL 250 MG TABS Take two tablets today and then 1 tablet daily for 4 days AZITHROMYCIN 74633372836 No Longer Active Flaco Rosales MD Active GUAIFENESIN DM 400-20 MG ORAL TABLET 1 pill by mouth t wice daily, if needed for cough DEXTROMETHORPHAN-GUAIFENESIN 44283287541 No Longer Active Rich Rosales MD Active CEFDINIR 300 MG ORAL CAPSULE 1 po BID x 10 days CEFDINIR 02596800731 No Longer Active Jessica Heaton APRN Active CHERATUSSIN AC 100-10 MG/5ML ORAL SYRUP 1 tsp by mouth every 4 hours as needed for cough GUAIFENESIN-CODEINE 94252735704 No Longe r Active Jessica Heaton APRN Active TAMIFLU 75 MG ORAL CAPSULE 1 po BID x 5 days 0 OSELTAMIVIR PHOSPHATE 56324433974 No Longer Active Jose Zhong MD Activ e ZITHROMAX Z-EMIL 250 MG ORAL TABLET 2 today, then 1 daily for 4 d ays AZITHROMYCIN 97260346325 No Longer Active Arie Casper MD Active PROTONIX 40 MG ORAL TABLET DELAYED RELEASE 1 po q a.m. PANTOPRAZOLE SODIUM 93372535029 No Longer Active Arie Casper MD Active BACTRIM DS 800-160 MG ORAL TABLET 1 tab by mouth twice daily 201 05/02/30 TRIMETHOPRIM-SULFAMETHOXAZOLE 85510017827 No Longer Active R KELLIE Sandoval Active NEXPLANON IMPLANT right arm subcutaneously ETONOGESTREL IMPL 39804885542 No Longer Active Brii Russ APRN Active TUSSIONEX PENNKINETIC ER 10-8 MG/5ML ORAL SUSPENSION E XTENDED RELEASE 5ml po q12hr PRN Cough HYDROCOD POLST-CHLORPHEN POLST 5 8059658680 No Longer Active Brii Russ APRN Active CETIRIZINE HCL 10 MG ORAL TABLET 1 po qd PRN Allergies CETIRIZINE HCL 44512137741 No Longer Active Brii Russ APRN Activ e PREDNISONE 20 MG ORAL TABLET 2 tabs daily for 3 days, 1 tab daily for 3 days, 1/2 tab daily for 2 days PREDNISONE 20331303123 No Longer Active Arie Casper MD Active LOMOTIL 2.5-0.025 MG ORAL TABLET 1 tab po four times a day as needed for diarrhea DIPHENOXYLATE-ATROPINE 71363992664 No Lo nger Active Arie Casper MD Active ZOLOFT 50 MG ORAL TABLET 1 tablet by mouth daily 12/08 SERTRALINE HCL 27936687734 No Longer Active Arie Casper MD Ac tive NAPROXEN 500 MG ORAL TABLET Take 1 tab BID NAPR OXEN 64334659335 No Longer Active Arie Casper MD Active CEFDINIR 300 MG ORAL CAPSULE 1 po BID x 10 days CEFDINIR 51070917613 No Longer Active Brii Russ APRN Active PREDNISONE 20 MG ORAL TABLET 1 tablet daily for airway inflammat ion PREDNISONE 96986949668 No Longer Active Brii Russ APRN A ctive CEFDINIR 300 MG ORAL CAPSULE 1 po BID x 10 days CEFDINIR 79604085646 No Longer Active Jono Gagnon DO Active FLONASE 50 MCG/ACT NASAL SUSPENSION 1 spray each nostr il twice daily for allergies and runny nose until gone FLUT ICASONE PROPIONATE 07011153373 No Longer Active Jono Gagnon DO Active ALPRAZOLAM 0.25 MG ORAL TABLET 1 tablet by mouth every 8 hours as needed for stress ALPRAZOLAM 16407485554 No Longer Active Jono Gagnon DO Active ZITHROMAX Z-EMIL 250 MG ORAL TABLET 2 today, then 1 daily for 4 d ays AZITHROMYCIN 42781807435 No Longer Active Arie Casper MD Active PREDNISONE 20 MG ORAL TABLET 2 tabs daily for 3 days, 1 tab daily for 3 days, 1/2 tab daily for 2 days PREDNISONE 71409521788 No Longer Active Brii Russ APRN Active PREDNISONE 20 MG ORAL TABLET 1 tablet twice daily for 2 days, then 1 tablet once daily for 2 days PREDNISONE 20252238273 No Longer Active Brii Russ APRN Active PROMETHAZINE HCL 12.5 MG ORAL TABLET 1 tablet by mouth every 6 hours as needed for nausea/vomiting PROMETHAZINE HCL 69297050522 No L onger Active Jono Gagnon DO Active CITRATE OF MAGNESIA ORAL SOLUTION 1 bottle today for constipatio n MAGNESIUM CITRATE 24190595625 No Longer Active Jono Gagnon DO Active ZOFRAN 4 MG ORAL TABLET 1 TAB PO Q 6 HRS PRN NAUSEA 20 07/10/15 ONDANSETRON HCL 82213362119 No Longer Active Brii Russ APRN Acti ve LOMOTIL 2.5-0.025 MG ORAL TABLET 1 to 2 four times a day as needed for diarrhea DIPHENOXYLATE-ATROPINE 88421657181 No Longer Active January Russ APRN Active AMOXICILLIN 500 MG ORAL TABLET 2 tabs twice a day for 10 days 20 07/09/11 AMOXICILLIN 80024047283 No Longer Active Brii Russ APRN Active CYCLOBENZAPRINE HCL 10 MG ORAL TABLET 1/2 - 1 tablet b y mouth three times daily as needed for muscle spasm/pain CYCLOBENZAPRINE HCL 58054422057 No Longer Active Arie Casper MD Active LOMOTIL 2.5-0.025 MG ORAL TABLET 1 to 2 four times a day as needed for diarrhea DIPHENOXYLATE-ATROPINE 21328932131 No Longer Active Fozia Casper MD Active MACROBID 100 MG ORAL CAPSULE 1 cap by mouth twice daily NITROFURANTOIN MONOHYD MACRO 12577359949 No Longer Active Arie Casper MD Active ZYRTEC ALLERGY 10 MG ORAL CAPSULE 1 po qd CE TIRIZINE HCL 22377989995 No Longer Active Arie Casper MD Active AZITHROMYCIN 250 MG ORAL TABLET 2 po qd x 1 day, then 1 po q d x 4 days AZITHROMYCIN 21115274516 No Longer Active Jillina Fra naomi BRAND ADVISOR Active PREDNISONE 20 MG ORAL TABLET 2 tabs daily for 3 days, 1 tab daily for 3 days, 1/2 tab daily for 2 days PREDNISONE 77461879897 No Longer Active Jillina Fradeepl BRAND ADVISOR Active PROMETHAZINE HCL 25 MG ORAL TABLET 1 four times a day as nee ded for vomiting PROMETHAZINE HCL 58716692423 No Longer Active Myrna Roberto MD Active BACTRIM DS 800-160 MG ORAL TABLET 1 twice a day 05/30 SULFAMETHOXAZOLE-TRIMETHOPRIM 71462257720 No Longer Active Myrna Roberto MD Active VICKS DAYQUIL SEVERE COLD/FLU TABLET 1 tab every 6 hours prn 201 02/22/17 [id number] TABS 95075614020 No Longer Active K fany Roberto MD Active GUAIFENESIN-CODEINE 100-10 MG/5ML ORAL SYRUP 2 tsp every 6 hours prn GUAIFENESIN-CODEINE 79178066254 No Longer Active Myrna Roberto MD Active NAPROXEN 500 MG ORAL TABLET one tab PO BID NAPR OXEN 40168068378 No Longer Active Myrna Roberto MD Active AUGMENTIN 875-125 MG ORAL TABLET 1 tab by mouth twice daily with food AMOXICILLIN-POT CLAVULANATE 54086341007 No Longer Act zaid Liliana Estrada MD PhD Active AMOXICILLIN 500 MG ORAL CAPSULE 1 tab by mouth 3 times daily 201 02/21/05 AMOXICILLIN 11640643689 No Longer Active Liliana Estrada MD PhD Active TESSALON PERLES 100 MG ORAL CAPSULE 1 tablet by mouth 3 times da cory BENZONATATE 98866010335 No Longer Active Liliana Estrada MD PhD Active FLAGYL 500 MG ORAL TABLET 1 tablet by mouth two times daily 2014 METRONIDAZOLE 73232297678 No Longer Active Nilam Doran tive ZITHROMAX 250 MG ORAL TABLET 2 po today, then 1 po q days 2-5 20 06/08/16 AZITHROMYCIN 74570452025 No Longer Active Arie Casper MD Active VITAMINS 0.8 MG ORAL TABLET take 1 tab po qday [id number] 59121060027 No Longer Active Arie Casper MD Active IBUPROFEN 800 MG ORAL TABLET take one po Q 8 hours 201 02/01/16 IBUPROFEN 39310017107 No Longer Active Arie Casper MD Acti ve [facility] TUSSIN COUGH/COLD CF 5-10-100 MG/5ML ORAL LIQUID 2 teasp oons every 4 hours [id number] 44894821538 No Longer Active Blaine Casper MD Active COMTREX COLD/COUGH DAY/NITE MS 5-2-10-325 MG ORAL 2 caps deja ry 4 hours [id number] 24724312921 No Longer Active Landon Casper MD Active CHLORASEPTIC MAX SORE THROAT 15-10 MG MOUTH/THROAT LOZENGE 1 every 2 hours prn BENZOCAINE-MENTHOL 47247262769 No Longer Active Arie Casper MD Active PREDNISONE 20 MG ORAL TABLET 2 tabs daily for 3 days, 1 tab daily for 3 days, 1/2 tab daily for 2 days PREDNISONE 61921955968 No Longer Active Jose Zhong MD Active AZITHROMYCIN 250 MG ORAL TABLET 2 po qd x 1 day, then 1 po q d x 4 days AZITHROMYCIN 27749259098 No Longer Active Jose Mcwilliams MD Active ZOFRAN ODT 4 MG ORAL TABLET DISINTEGRATING 1 po q6hr PRN Nausea ONDANSETRON 08587280117 No Longer Active Rich Rosales MD Active ZOFRAN 4 MG ORAL TABLET 1 tablet every 4 hours ONDANSETRON HCL 44447799048 No Longer Active Rich Rosales MD Activ e MUCINEX 600 MG ORAL TABLET EXTENDED RELEASE 12 HOUR Ta ke 1-2 tablets every 12 hours GUAIFENESIN 72305192659 No Longer Active Rich Rosales MD Active BACTRIM 400-80 MG ORAL TABLET take one po BID SULFAMETHOXAZOLE-TRIMETHOPRIM 47811384161 No Longer Active Abelardo HERNANDEZ Active AZITHROMYCIN 500 MG ORAL TABLET 1 PO q day x 6 days 20 03/02/23 AZITHROMYCIN 88712848797 No Longer Active Tin HERNANDEZ Activ e ZITHROMAX 250 MG ORAL TABLET 2 po today, then 1 po q days 2-5 20 10/03/08 AZITHROMYCIN 90248236974 No Longer Active Arie Casper MD Active ZITHROMAX 250 MG ORAL TABLET 2 po today, then 1 po q days 2-5 20 09/23/25 AZITHROMYCIN 61939845202 No Longer Active Arie Casper MD Active AMOXICILLIN 500 MG ORAL CAPSULE 1 tab by mouth 3 times daily 201 11/24/09 AMOXICILLIN 60348307873 No Longer Active Arie Casper MD Active BACTRIM DS 800-160 MG ORAL TABLET 1 tab by mouth twice daily 201 11/03/14 TRIMETHOPRIM-SULFAMETHOXAZOLE 31892914492 No Longer Active Fozia Casper MD Active AMOXICILLIN 500 MG ORAL TABLET take 1 tab po TID 08/05 AMOXICILLIN 27931296342 No Longer Active Arie Casper MD Acti [...] 4 hours ZOFRAN 4 MG ORAL TABLET 533358 ONDANSETRON HCL Inactive ZOFRAN ODT 4 MG [...] COLD/COUGH DAY/NITE MS 5-2-10-325 MG ORA L [id number] Inactive [facility] TUSSIN COUGH/COLD CF 5-10-100 MG/5ML ORAL LIQUID 2 teasp oons every 4 hours [facility] TUSSIN COUGH/COLD CF 5-10-100 MG/5ML ORAL LI QUID [id number] Inactive IBUPROFEN 800 MG ORAL TABLET take one po Q 8 hours 201 02/01/16 IBUPROFEN 800 MG ORAL TABLET IBUPROFEN Inactive VITAMINS 0.8 MG ORAL TABLET take 1 tab po qday VITAMINS 0.8 MG ORAL TABLET [id number] E-FA Inactive TESSALON PERLES 100 MG ORAL CAPSULE 1 tablet by mouth 3 times da cory TESSALON PERLES 100 MG ORAL CAPSULE 19730630 BENZONATATE Inactive AMOXICILLIN 500 MG ORAL CAPSULE 1 tab by mouth 3 times daily 201 02/21/05 AMOXICILLIN 500 MG ORAL CAPSULE 058260 AMOXICILLIN Inactive GUAIFENESIN-CODEINE 100-10 MG/5ML ORAL SYRUP 2 tsp every 6 hours prn GUAIFENESIN-CODEINE 100-10 MG/5ML ORAL SYRUP 310779 GUAIFENESIN-CODEINE Inactive VICKS DAYQUIL SEVERE COLD/FLU TABLET 1 tab every 6 hours prn 201 02/22/17 VICKS DAYQUIL SEVERE COLD/FLU TABLET PHENYLEPHRI [id number] TABS Inactive BACTRIM DS 800-160 MG ORAL TABLET 1 twice a day 05/30 BACTRIM DS 800-160 MG ORAL TABLET 410466 SULFAMETHOXAZOLE-TRIMETHOPRIM Inactiv e PROMETHAZINE HCL 25 MG ORAL TABLET 1 four times a day as nee ded for vomiting PROMETHAZINE HCL 25 MG ORAL TABLET 207706 PROMETHAZINE HCL Inactive ZYRTEC ALLERGY 10 MG ORAL CAPSULE 1 po qd ZYRTEC ALLERGY 10 MG ORAL CAPSULE CETIRIZINE HCL Inactive MACROBID 100 MG ORAL CAPSULE 1 cap by mouth twice daily MACROBID 100 MG ORAL CAPSULE 0744158 NITROFURANTOIN MONOHYD MACRO In active LOMOTIL 2.5-0.025 MG ORAL TABLET 1 to 2 four times a day as needed for diarrhea LOMOTIL 2.5-0.025 MG ORAL TABLET 8045280 DIPHENOXYLATE-ATROPINE Inactive CYCLOBENZAPRINE HCL 10 MG ORAL TABLET 1/2 - 1 tablet b y mouth three times daily as needed for muscle spasm/pain CYCLOBEN ZAPRINE HCL 10 MG ORAL TABLET 368147 CYCLOBENZAPRINE HCL Inactive AMOXICILLIN 500 MG ORAL TABLET 2 tabs twice a day for 10 days 20 07/09/11 AMOXICILLIN 500 MG ORAL TABLET 042203 AMOXICILLIN I nactive LOMOTIL 2.5-0.025 MG ORAL TABLET 1 to 2 four times a day as needed for diarrhea LOMOTIL 2.5-0.025 MG ORAL TABLET 2112402 DIPHENOXYLATE-ATROPINE Inactive ZOFRAN 4 MG ORAL TABLET 1 TAB PO Q 6 HRS PRN NAUSEA 20 07/10/15 ZOFRAN 4 MG ORAL TABLET 455146 ONDANSETRON HCL Inactive CITRATE OF MAGNESIA ORAL SOLUTION 1 bottle today for constipatio n CITRATE OF MAGNESIA ORAL SOLUTION 7658129 MAGNESIUM CITR ATE Inactive PROMETHAZINE HCL 12.5 MG ORAL TABLET 1 tablet by mouth every 6 hours as needed for nausea/vomiting PROMETHAZINE HCL 12.5 MG ORA L TABLET 581097 PROMETHAZINE HCL Inactive PREDNISONE 20 MG ORAL TABLET 1 tablet twice daily for 2 days, then 1 tablet once daily for 2 days PREDNISONE 20 MG ORAL TABLET 453508 PREDNISONE Inactive ALPRAZOLAM 0.25 MG ORAL TABLET 1 tablet by mouth every 8 hours as needed for stress ALPRAZOLAM 0.25 MG ORAL TABLET 218804 ALPRA ZOLAM Inactive FLONASE 50 MCG/ACT NASAL SUSPENSION 1 spray each nostr il twice daily for allergies and runny nose until gone FLON ASE 50 MCG/ACT NASAL SUSPENSION 4258219 FLUTICASONE PROPIONATE Inactive PREDNISONE 20 MG ORAL TABLET 1 tablet daily for airway inflammat ion PREDNISONE 20 MG ORAL TABLET 818274 PREDNISONE [place] ctive NAPROXEN 500 MG ORAL TABLET Take 1 tab BID NAPROXEN 500 MG ORAL TABLET 455531 NAPROXEN Inactive ZOLOFT 50 MG ORAL TABLET 1 tablet by mouth daily 12/08 ZOLOFT 50 MG ORAL TABLET 451019 SERTRALINE HCL Inactive LOMOTIL 2.5-0.025 MG ORAL TABLET 1 tab po four times a day as needed for diarrhea LOMOTIL 2.5-0.025 MG ORAL TABLET 8333143 DIPHENOXYLATE-ATROPINE Inactive CETIRIZINE HCL 10 MG ORAL TABLET 1 po qd PRN Allergies CETIRIZINE HCL 10 MG ORAL TABLET 6436307 CETIRIZINE HCL Inactiv e TUSSIONEX PENNKINETIC ER 10-8 MG/5ML ORAL SUSPENSION E XTENDED RELEASE 5ml po q12hr PRN Cough TUSSIONEX PENNKINETI C ER 10-8 MG/5ML ORAL SUSPENSION EXTENDED RELEASE HYDROCOD POLST-CHLORPHEN POLST I nactive NEXPLANON IMPLANT right arm subcutaneously NEXPLANON IMPLANT ETONOGESTREL IMPL Inactive PROTONIX 40 MG ORAL TABLET DELAYED RELEASE 1 po q a.m. PROTONIX 40 MG ORAL TABLET DELAYED RELEASE 303134 PANTOPRAZOLE SODI UM Inactive CHERATUSSIN AC 100-10 MG/5ML ORAL SYRUP 1 tsp by mouth every 4 hours as needed for cough CHERATUSSIN AC 100-10 MG/5ML ORAL SYRUP 9 62499 GUAIFENESIN-CODEINE Inactive GUAIFENESIN DM 400-20 MG ORAL [...] tid K EFLEX 500 MG ORAL CAPSULE 140693 CEPHALEXIN Inactive DIFLUCAN 100 MG ORAL TABLET 1 tablet by mouth daily, R EPEAT 2ND DOSE IN 7 DAYS IF STILL SYMPTOMATIC DIFLUCAN 100 MG ORAL TABLET 66100 8 FLUCONAZOLE Inactive PROTONIX 40 MG ORAL TABLET DELAYED RELEASE 1 pill by m outh daily, for acid reflux PROTONIX 40 MG ORAL TABLET DELAYED RELEAS E 058290 PANTOPRAZOLE SODIUM Inactive ALPRAZOLAM 0.25 MG ORAL TABLET 1 tablet by mouth twice a day as needed for stress/anxiety ALPRAZOLAM 0.25 MG ORAL TABLET 967483 ALPRAZOLAM Inactive ESCITALOPRAM OXALATE 10 MG ORAL TABLET take 1 tab po qhs for mod ESCITALOPRAM OXALATE 10 MG ORAL TABLET 575628 ESCITALOP JO OXALATE Inactive AMOXICILLIN 500 MG ORAL TABLET take 1 tab po TID 08/05 AMOXICILLIN 500 MG ORAL TABLET 204109 AMOXICILLIN Inactive AMOXICILLIN 500 MG ORAL CAPSULE 1 tab by mouth 3 times daily 201 11/24/09 AMOXICILLIN 500 MG ORAL CAPSULE 933094 AMOXICILLIN Inactive ZITHROMAX 250 MG ORAL TABLET 2 po today, then 1 po q days 2-5 20 09/23/25 ZITHROMAX 250 MG ORAL TABLET 303199 AZITHROMYCIN Arlen ctive ZITHROMAX 250 MG ORAL TABLET 2 po today, then 1 po q days 2-5 20 10/03/08 ZITHROMAX 250 MG ORAL TABLET 106659 AZITHROMYCIN Arlen ctive AZITHROMYCIN 500 MG ORAL TABLET 1 PO q day x 6 days 20 03/02/23 AZITHROMYCIN 500 MG ORAL TABLET 5620052 AZITHROMYCIN Inactive BACTRIM 400-80 MG ORAL TABLET take one po BID BACTRIM 400- 80 MG ORAL TABLET 496927 SULFAMETHOXAZOLE-TRIMETHOPRIM Inactive AZITHROMYCIN 250 MG ORAL TABLET 2 po qd x 1 day, then 1 po q d x 4 days AZITHROMYCIN 250 MG ORAL TABLET 302095 AZITHROMY ALLISON Inactive PREDNISONE 20 MG ORAL TABLET 2 tabs daily for 3 days, 1 tab daily for 3 days, 1/2 tab daily for 2 days PREDNISONE 20 MG ORAL T ABLET 888677 PREDNISONE Inactive ZITHROMAX 250 MG ORAL TABLET 2 po today, then 1 po q days 2-5 20 06/08/16 ZITHROMAX 250 MG ORAL TABLET 000959 AZITHROMYCIN Arlen ctive FLAGYL 500 MG ORAL TABLET 1 tablet by mouth two times daily 2014 FLAGYL 500 MG ORAL TABLET 879752 METRONIDAZOLE Inacti ve AUGMENTIN 875-125 MG ORAL TABLET 1 tab by mouth twice daily with food AUGMENTIN 875-125 MG ORAL TABLET 230644 AMOXICIL ELSA-POT CLAVULANATE Inactive NAPROXEN 500 MG ORAL TABLET one tab PO BID NAPROXEN 500 MG ORAL TABLET 831962 NAPROXEN Inactive PREDNISONE 20 MG ORAL TABLET 2 tabs daily for 3 days, 1 tab daily for 3 days, 1/2 tab daily for 2 days PREDNISONE 20 MG ORAL T ABLET 739094 PREDNISONE Inactive AZITHROMYCIN 250 MG ORAL TABLET 2 po qd x 1 day, then 1 po q d x 4 days AZITHROMYCIN 250 MG ORAL TABLET 474447 AZITHROMY ALLISON Inactive PREDNISONE 20 MG ORAL TABLET 2 tabs daily for 3 days, 1 tab daily for 3 days, 1/2 tab daily for 2 days PREDNISONE 20 MG ORAL T ABLET 534825 PREDNISONE Inactive ZITHROMAX Z-EMIL 250 MG ORAL TABLET 2 today, then 1 daily for 4 d ays ZITHROMAX Z-EMIL 250 MG ORAL TABLET 720292 AZITHROMYCIN Inactive CEFDINIR 300 MG ORAL CAPSULE 1 po BID x 10 days 12/18 CEFDINIR 300 MG ORAL CAPSULE 379738 CEFDINIR Inactive CEFDINIR 300 MG ORAL CAPSULE 1 po BID x 10 days CEFDINIR 300 MG ORAL CAPSULE 036956 CEFDINIR Inactive PREDNISONE 20 MG ORAL TABLET 2 tabs daily for 3 days, 1 tab daily for 3 days, 1/2 tab daily for 2 days PREDNISONE 20 MG ORAL T ABLET 926401 PREDNISONE Inactive BACTRIM DS 800-160 MG ORAL TABLET 1 tab by mouth twice daily 201 05/02/30 BACTRIM DS 800-160 MG ORAL TABLET 250106 TRIMETHOPRIM-SULFAMETHOXAZOLE Inactive ZITHROMAX Z-EMIL 250 MG ORAL TABLET 2 today, then 1 daily for 4 d ays ZITHROMAX Z-EMIL 250 MG ORAL TABLET 630660 AZITHROMYCIN Inactive TAMIFLU 75 MG ORAL CAPSULE 1 po BID x 5 days 0 TAMIFLU 75 MG ORAL CAPSULE 577593 OSELTAMIVIR PHOSPHATE Inactive CEFDINIR 300 MG ORAL CAPSULE 1 po BID x 10 days 01/03 CEFDINIR 300 MG ORAL CAPSULE 20030127 CEFDINIR Inactive ZITHROMAX Z-EMIL 250 MG TABS Take two tablets today and then 1 tablet daily for 4 days ZITHROMAX Z-EMIL 250 MG TABS 166100 AZITHROM YCIN Inactive AMOXICILLIN 875 MG ORAL TABLET 1 tab by mouth twice daily AMOXICILLIN 875 MG ORAL TABLET 394447 AMOXICILLIN Inactive Advance Directives Directive Description Start [...] 0.2 Encounters Code Encounter Date Provider Facility CPT-89089 [id number] Vst-Est Level IV 13:45:[address] Tali Andersman RANDY [facility] CPT-01565 [id number] Vst-Est Level III 09:41:31 CDT Arie Casper MD [facility] CPT-73647 [id number] Vst-Est Level III 18:20:11 CDT Me lobito Russ [facility] CPT-06606 [id number] Vst-Est Level III 17:21:41 CDT Me lobito Russ [facility]-25190 [id number] Vst-Est Level IV 13:30:22 C DT Arie Casper MD [facility] CPT-78646 Level 4 Est. Patient 13:05:26 CDT Myrna maldonado [facility] CPT-17014 [id number] Vst-Est Level IV 20:50:21 C DT Arie Casper MD [facility] CPT-36648 Level 3 Est. Patient 11:49:34 TRIAL PARALEGAL Jessica boyd [facility] CPT-75323 Level 3 Est. Patient 14:55:50 TRIAL PARALEGAL Jose Zhong MD [facility] CPT-26002 Level 3 Est. Patient 10:21:41 TRIAL PARALEGAL Arie mcqueen MD [facility] CPT-39831 Level 3 Est. Patient 11:35:15 TRIAL PARALEGAL Arie mcqueen MD [facility] CPT-81061 Level 3 Est. Patient 15:40:28 CDT Brii escalante [facility] CPT-01642 Level 3 Est. Patient 16:40:36 CDT Arie mcqueen MD [facility] CPT-90663 Level 4 Est. Patient 15:29:22 TRIAL PARALEGAL Arie mcqueen MD [facility] CPT-85074 Level 3 Est. Patient 15:18:16 TRIAL PARALEGAL Jono black DO [facility] CPT-21634 Level 4 Est. Patient 12:08:40 TRIAL PARALEGAL Brii Are ll [facility] CPT-28852 Level 3 Est. Patient 09:24:42 CDT Brii Are ll BRAND ADVISOR [facility] CPT-03691 Level 3 Est. Patient 09:12:56 CDT Arie mcqueen MD [facility] CPT-09561 Level 3 Est. Patient 16:40:54 CDT Jose Zhong MD [facility] CPT-75481 Level 2 Est. Patient 13:01:13 CDT Biri Are ll [facility] CPT-67297 Level 3 Est. Patient 11:55:30 TRIAL PARALEGAL Jono black [facility] CPT-07391 Level 3 Est. Patient 09:52:36 TRIAL PARALEGAL Brii Are ll [facility] CPT-63902 Level 3 Est. Patient 16:25:33 TRIAL PARALEGAL Rich Rosales MD [facility] CPT-27588 Level 3 Est. Patient 20:33:55 CDT Arie mcqueen MD [facility] CPT-31614 Level 3 Est. Patient 14:18:20 CDT Rich Rosales MD [facility] CPT-74028 Level 4 Est. Patient 09:34:31 CDT Arie mcqueen MD [facility] CPT-47137 Level 3 Est. Patient 09:08:55 TRIAL PARALEGAL Liliana vincent MD PhD [facility] CPT-80557 Level 3 Est. Patient 16:44:07 TRIAL PARALEGAL Arie mcqueen MD [facility] CPT-56017 Level 3 Est. Patient 10:44:27 CDT Arie mcqueen MD [facility] CPT-07694 Level 3 Est. Patient 08:55:41 CDT Jose Zhong MD [facility] CPT-69083 Level 3 Est. Patient 18:37:31 CDT Liliana vincent MD PhD [facility] CPT-25155 Level 3 Est. Patient 14:28:23 CDT Abelardo HERNANDEZ [facility] CPT-48146 Level 3 Est. Patient 15:18:13 TRIAL PARALEGAL Arie mcqueen MD [facility] CPT-63272 Level 3 Est. Patient 10:11:29 TRIAL PARALEGAL Arie mcqueen MD [facility] CPT-00664 Level 3 Est. Patient 10:55:57 TRIAL PARALEGAL Jono black DO [facility] CPT-77706 Level 3 Est. Patient 17:29:05 CDT Arie mcqueen MD [facility] Procedures Code Procedure Name Date Entry Date Standard Desc ription CPT-53333 [facility] [place] - [place] ONLY 12:13:59 TRIAL PARALEGAL 12/11 CPT-46068 Spec Collection and Handling Fee 12:13:[address] CPT-94672 Visit 12:13:59 TRIAL PARALEGAL CPT-26842 First Vx - Ix admin via ID I M or jet injects without counseling by physician 13:00:15 TRIAL PARALEGAL CPT-70048 Flulaval Intramuscular Injectable 13:00:15 TRIAL PARALEGAL CPT-71991 Urine Dip (Floor Use Only) 12:20:20 TRIAL PARALEGAL 201 06/03/24 CPT-66798 Sono Soft Tissue Head and Neck - XRAY US E ONLY 17:10:14 CDT CPT-63610 Ear Wash with irrigation 17:21:41 CDT 07/04 CPT-86434 Nexplanon Removal 15:40:28 CDT CPT-42627 Sono transvag pelvis non OB uterus ovari es cervix - XRAY USE ONLY 08:58:14 TRIAL PAR[place]GAL CPT-49452 UA w micro - LAB USE ONLY 16:04:56 TRIAL PARALEGAL 2015 CPT-19873 Wet Prep/GEN - LAB USE ONLY 16:04:56 TRIAL PARALEGAL 20 08/10/29 CPT-26554 First Vx - Ix admin via ID I M or jet injects without counseling by physician 16:57:10 CDT CPT-59229 Fluzone Preservative Free Intramuscular Suspension 16:57:10 CDT CPT-J0696 Rocephin 1000 mg (Ceftriaxone) 11:49:23 CDT CPT-J1040 Depo Medrol 80 mg (Methyl Prednisolone A cetate) 11:49:23 CDT CPT-J1100 Decadron 8mg (Dexamethasone) 11:49:23 CDT 2 CPT-94292 Abx/Therapy Injection 11:49:23 CDT CPT-61462 Abx/Therapy Injection 11:49:23 CDT CPT-95888 Abd compl w upright 09:07:26 TRIAL PARALEGAL CPT-69072 Ear Wash 16:12:47 TRIAL PARALEGAL CPT-OV Office Visit 11:12:01 CDT CPT-OV Office Visit 15:30:23 CDT CPT-88180 Sono pelvis non OB uterus ovaries cervix 15:50:44 CDT CPT-12554 Hand comp min 3V 16:42:32 CDT CPT-92407 Abd compl w upright 12:17:01 CDT CPT-37041 Nexplanon Placement 15:07:39 TRIAL PARALEGAL CPT-36278 Removal of IUD 15:07:39 TRIAL PARALEGAL CPT-21833 TB Tubersol 12:09:32 CDT CPT-61811 TB Tubersol 13:55:43 CDT
--- OUTSIDE RECORDS SUMMARY | 2020-03-03 07:03 | XMS REPORT | Clinical Summary ---
Author Author Admin, Diamante Marcelo Organization [facility] Address Unknown Phone Unavailable Allergies, Adverse [...] PhD Unspecified sinusitis (chronic) CONTRACEPTIVE MANAGEMENT V25.09 Active Arie Casper MD Encounter for other general counseling a nd advice on contraceptive management IUD removal V25.42 Resolved Liliana Estrada [...] PhD Acute sinusitis, unspecified Fever 780.60 Resolved Liliaan Estrada MD PhD Fever, unspecified Symptom, cough 786.2 Resolved Liliana Estrada MD Ph D Cough Vaginal discharge 623.5 Resolved Liliana Estrada MD PhD Leukorrhea, not specified as infective Preventive health care V70.0 Active Nilam Chapin a Routine general medical examination at a health care facility Sinusitis, maxillary, acute 461.0 Active Liliana Estrada MD PhD Acute maxillary sinusitis Neck pain 723.1 Active Liliana Estrada MD PhD Cervicalgia Dyspareunia 625.0 Active Arie Casper MD Dyspareunia Pelvic pain 789.09 Active Arie Casper MD Abdominal pain, other specified site; multiple sites Pharyngitis 462 Active Rich Rosales MD Acute pharyngitis Gastroenteritis, acute 558.9 Active Rich abebe MD Other and unspecified noninfectious gastroenteritis and colitis Fibroids, uterus 218.9 Active Myrna Roberto MD Leiomyoma of uterus, unspecified Health screening V70.0 Active Roseann Crawford Routine general medical examination at a health care facility ACCIDENT CAUSED BY HYPODERMIC NEEDLE E920.5 Active Roseann Crawford Accidents caused by hypodermic needle Post-op care V67.00 Active Myrna Roberto MD Follow-up examination following surgery, unspecified Constipation 564.00 Active Myrna Roberto MD Constipation, unspecified Bronchitis 490 Active Jessica Heaton APRN Bronchitis, not specified as acute or chronic Fatigue 780.79 Active Roseann Crawford Other m alaise and fatigue Insect bite 919.4 Active Roseann Crawford Ins ect bite, nonvenomous, of other, multiple, and unspecified [...] quadrant Urinary frequency 788.41 Inactive Roseann Crawford Urinary frequency Urinary frequency 788.41 Resolved Jose Zhong MD Urinary frequency Sinusitis - acute 461.9 Active Brii Russ APRN Acute sinusitis, unspecified Anxiety with depression 300.4 Active Brii Ramirez l [employer] Dysthymic disorder URI 465.9 Active Jono Gagnon [...] respiratory manifestations Sinusitis 473.9 Active Jessica Heaton APRN Unspecified sinusitis (chronic) Other mixed anxiety 300.00 [...] abuse Body Mass Index 27.0-27.9 Adult V85.23 Active 2017 Myrna Roberto MD Body Mass Index 27.0-27.9, adult Body Mass Index 28.0-28.9 Adult Inactive 2017 Arie Casper MD Body Mass Index 28.0-28.9, adult Counseling for procreative management V26.9 Active Myrna Roberto MD Unspecified procreative management Overweight (BMI 25-29.9) 278.02 Active Myrna maldonado MD Overweight Cerumen impaction, bilateral 380.4 Active Brii Russ APRN Impacted cerumen Tonsillar enlargement 474.11 Active Brii Russ APRN Hypertrophy of tonsils alone Influenza Vaccination for Prophylaxis V04.81 Inactive Brii Russ APRN Need for prophylactic vaccin ation and inoculation against influenza Submandibular lymph node 785.6 Active Brii Are ll [employer] Enlargement of lymph nodes Influenza Vaccination for [...] multiple sites Vaginal pruritus 698.1 Active Tali Rich Pruritus of genital organs DYSPAREUNIA Active Tali Devi PA-C BREAST CANCER ICD-V16.3 Inactive Jose Marcelo FH COLON CANCER ICD-V16.0 Inactive Jose Zhong MD FH DIABETES ICD-V18.0 Inactive Jose Zhong MD 201 01/29/08 ACUTE FRONTAL SINUSITIS ICD-461.1 Inactive Meghan Estrada MD PhD CYSTITIS ICD-595.9 Inactive Liliana Estrada MD Ph D SINUSITIS ICD-473.9 Inactive Liliana Estrada MD Ph D IUD removal ICD-V25.42 Inactive Liliana Estrada MD PhD Diarrhea ICD-787.91 Inactive Jose Marcelo Thumb pain, right ICD-729.5 Inactive Jose pelayo MD Sinusitis, acute ICD-461.9 Inactive Liliana cheema MD PhD Fever ICD-780.60 Inactive Liliana Estrada MD PhD 20 08/12/16 Symptom, cough ICD-786.2 Inactive Liliana Estrada MD PhD Vaginal discharge ICD-623.5 Inactive Liliana lares MD PhD Urinary frequency ICD-788.41 Inactive Jose Zhong MD Vaginal bleeding ICD-623.8 Inactive Jose Mcwilliams MD Influenza Vaccination for Prophylaxis ICD-V04.81 6 Inactive Carole Valdivia A Influenza Vaccination for Prophylaxis ICD-V04.81 8 Inactive Nilam Weber Influenza Vaccination for Prophylaxis ICD-V04.81 5 Inactive Liliana Gaspar [facility] Medication List Medication Instructions Start Date Stop Date Generic Name NDC Status Provider Patient Instruction DIFLUCAN 100 MG ORAL TABLET 1 tablet by mouth daily, R EPEAT 2ND DOSE IN 7 DAYS IF STILL SYMPTOMATIC FLUCONAZOLE [id number] No Long er Active Nilam Plattkatie Active KEFLEX 500 MG ORAL CAPSULE 1 po tid CEPHALEXI N 89219577375 No Longer Active Tali Devi PA-C Active CONCEPT DHA 53.5-38-1 MG ORAL CAPSULE 1 tablet daily [id number] 3 59220502787 Active Oxana Souza LPN Active PROTONIX 40 MG ORAL TABLET DELAYED RELEASE 1 pill by m out daily, for acid reflux PANTOPRAZOLE SODIUM 27358740210 Active Roseann Crawford Active AMOXICILLIN 875 MG ORAL TABLET 1 tab by mouth twice daily 1 AMOXICILLIN 49223415483 No Longer Active Brii Russ APRN Active ALPRAZOLAM 0.25 MG ORAL TABLET 1 tablet by mouth twice a day as needed for stress/anxiety ALPRAZOLAM 87893958885 Active KELLIE Escobar Active ESCITALOPRAM OXALATE 10 MG ORAL TABLET take 1 tab po qhs for mod 20 10/04/18 ESCITALOPRAM OXALATE 91100682786 Active Arie Casper MD Active TUSSIONEX PENNKINETIC ER 10-8 MG/5ML ORAL SUSPENSION E XTENDED RELEASE 5ml po q12hr PRN Cough HYDROCOD POLST-CHLORPHEN POLST 5 2035459932 No Longer Active Myrna Roberto MD Active ZITHROMAX Z-EMIL 250 MG TABS Take two tablets today and then 1 tablet daily for 4 days AZITHROMYCIN 70445143281 No Longer Active Flaco Rosales MD Active GUAIFENESIN DM 400-20 MG ORAL TABLET 1 pill by mouth t wice daily, if needed for cough DEXTROMETHORPHAN-GUAIFENESIN 07907460768 No Longer Active Rich Rosales MD Active CEFDINIR 300 MG ORAL CAPSULE 1 po BID x 10 days CEFDINIR 22502797321 No Longer Active Jessica Heaton APRN Active CHERATUSSIN AC 100-10 MG/5ML ORAL SYRUP 1 tsp by mouth every 4 hours as needed for cough GUAIFENESIN-CODEINE 52438997059 No Longe r Active Jessica Heaton APRN Active TAMIFLU 75 MG ORAL CAPSULE 1 po BID x 5 days 0 OSELTAMIVIR PHOSPHATE 52777208420 No Longer Active Jose Zhong MD Activ e ZITHROMAX Z-EMIL 250 MG ORAL TABLET 2 today, then 1 daily for 4 d ays AZITHROMYCIN 20108184915 No Longer Active Arie Casper MD Active PROTONIX 40 MG ORAL TABLET DELAYED RELEASE 1 po q a.m. PANTOPRAZOLE SODIUM 21149247289 No Longer Active Arie Casper MD Active BACTRIM DS 800-160 MG ORAL TABLET 1 tab by mouth twice daily 201 05/02/30 TRIMETHOPRIM-SULFAMETHOXAZOLE 67338358716 No Longer Active [facility] Active NEXPLANON IMPLANT right arm subcutaneously ETONOGESTREL IMPL 13344736271 No Longer Active Brii Russ APRN Active TUSSIONEX PENNKINETIC ER 10-8 MG/5ML ORAL SUSPENSION E XTENDED RELEASE 5ml po q12hr PRN Cough HYDROCOD POLST-CHLORPHEN POLST 5 4764180649 No Longer Active Brii Russ [employer] Active CETIRIZINE HCL 10 MG ORAL TABLET 1 po qd PRN Allergies CETIRIZINE HCL 18200637001 No Longer Active Brii Russ [employer] Activ e PREDNISONE 20 MG ORAL TABLET 2 tabs daily for 3 days, 1 tab daily for 3 days, 1/2 tab daily for 2 days PREDNISONE 16810724541 No Longer Active Arie Casper MD Active LOMOTIL 2.5-0.025 MG ORAL TABLET 1 tab po four times a day as needed for diarrhea DIPHENOXYLATE-ATROPINE 67946562159 No Lo nger Active Arie Casper MD Active ZOLOFT 50 MG ORAL TABLET 1 tablet by mouth daily 12/08 SERTRALINE HCL 41816331430 No Longer Active Arie Casper MD Ac tive NAPROXEN 500 MG ORAL TABLET Take 1 tab BID NAPR OXEN 62498101430 No Longer Active Arie Casper MD Active CEFDINIR 300 MG ORAL CAPSULE 1 po BID x 10 days CEFDINIR 03227557677 No Longer Active Brii Russ APRN Active PREDNISONE 20 MG ORAL TABLET 1 tablet daily for airway inflammat ion PREDNISONE 94012338781 No Longer Active Brii Russ APRN A ctive CEFDINIR 300 MG ORAL CAPSULE 1 po BID x 10 days CEFDINIR 59805249908 No Longer Active Jono Gagnon DO Active FLONASE 50 MCG/ACT NASAL SUSPENSION 1 spray each nostr il twice daily for allergies and runny nose until gone FLUT ICASONE PROPIONATE 49769125339 No Longer Active Jono Gagnon DO Active ALPRAZOLAM 0.25 MG ORAL TABLET 1 tablet by mouth every 8 hours as needed for stress ALPRAZOLAM 38946822374 No Longer Active Jono Gagnon DO Active ZITHROMAX Z-EMIL 250 MG ORAL TABLET 2 today, then 1 daily for 4 d ays AZITHROMYCIN 31029598490 No Longer Active Arie Casper MD Active PREDNISONE 20 MG ORAL TABLET 2 tabs daily for 3 days, 1 tab daily for 3 days, 1/2 tab daily for 2 days PREDNISONE 61575784427 No Longer Active Brii Russ APRN Active PREDNISONE 20 MG ORAL TABLET 1 tablet twice daily for 2 days, then 1 tablet once daily for 2 days PREDNISONE 83717865547 No Longer Active Brii Russ APRN Active PROMETHAZINE HCL 12.5 MG ORAL TABLET 1 tablet by mouth every 6 hours as needed for nausea/vomiting PROMETHAZINE HCL 09526724275 No L onger Active Jono Gagnon DO Active CITRATE OF MAGNESIA ORAL SOLUTION 1 bottle today for constipatio n MAGNESIUM CITRATE 63127679360 No Longer Active Jono Gagnon DO Active ZOFRAN 4 MG ORAL TABLET 1 TAB PO Q 6 HRS PRN NAUSEA 07/10/15 ONDANSETRON HCL 69260165285 No Longer Active Brii Russ APRN Acti ve LOMOTIL 2.5-0.025 MG ORAL TABLET 1 to 2 four times a day as needed for diarrhea DIPHENOXYLATE-ATROPINE 07302573830 No Longer Active January Russ APRN Active AMOXICILLIN 500 MG ORAL TABLET 2 tabs twice a day for 10 days 20 07/09/11 AMOXICILLIN 35488725763 No Longer Active Brii Russ APRN Active CYCLOBENZAPRINE HCL 10 MG ORAL TABLET 1/2 - 1 tablet b y mouth three times daily as needed for muscle spasm/pain CYCLOBENZAPRINE HCL 24023069391 No Longer Active Arie Casper MD Active LOMOTIL 2.5-0.025 MG ORAL TABLET 1 to 2 four times a day as needed for diarrhea DIPHENOXYLATE-ATROPINE 38437512605 No Longer Active D freddy Casper MD Active MACROBID 100 MG ORAL CAPSULE 1 cap by mouth twice daily NITROFURANTOIN MONOHYD MACRO 24176353554 No Longer Active Arie Casper MD Active ZYRTEC ALLERGY 10 MG ORAL CAPSULE 1 po qd CE TIRIZINE HCL 34999114927 No Longer Active Arie Casper MD Active AZITHROMYCIN 250 MG ORAL TABLET 2 po qd x 1 day, then 1 po q d x 4 days AZITHROMYCIN 08918137801 No Longer Active Jessica salgado [employer] Active PREDNISONE 20 MG ORAL TABLET 2 tabs daily for 3 days, 1 tab daily for 3 days, 1/2 tab daily for 2 days PREDNISONE 32915085998 No Longer Active Jessica Heaton [employer] Active PROMETHAZINE HCL 25 MG ORAL TABLET 1 four times a day as nee ded for vomiting PROMETHAZINE HCL 66785360614 No Longer Active Myrna Roberto MD Active BACTRIM DS 800-160 MG ORAL TABLET 1 twice a day 05/30 SULFAMETHOXAZOLE-TRIMETHOPRIM 40797601047 No Longer Active Myrna Roberto MD Active VICKS DAYQUIL SEVERE COLD/FLU TABLET 1 tab every 6 hours prn 201 02/22/17 [id number] TABS 25926136427 No Longer Active Chris Roberto MD Active GUAIFENESIN-CODEINE 100-10 MG/5ML ORAL SYRUP 2 tsp every 6 hours prn GUAIFENESIN-CODEINE 44577271178 No Longer Active Myrna Roberto MD Active NAPROXEN 500 MG ORAL TABLET one tab PO BID NAPR OXEN 19804909671 No Longer Active Myrna Roberto MD Active AUGMENTIN 875-125 MG ORAL TABLET 1 tab by mouth twice daily with food AMOXICILLIN-POT CLAVULANATE 12089279226 No Longer Act zaid Liliana Estrada MD PhD Active AMOXICILLIN 500 MG ORAL CAPSULE 1 tab by mouth 3 times daily 201 02/21/05 AMOXICILLIN 66565457244 No Longer Active Liliana Estrada MD PhD Active TESSALON PERLES 100 MG ORAL CAPSULE 1 tablet by mouth 3 times da cory BENZONATATE 31213927165 No Longer Active Liliana Estrada MD PhD Active FLAGYL 500 MG ORAL TABLET 1 tablet by mouth two times daily 2014 METRONIDAZOLE 30199091360 No Longer Active Nilam Doran tive ZITHROMAX 250 MG ORAL TABLET 2 po today, then 1 po q days 2-5 20 06/08/16 AZITHROMYCIN 87219508821 No Longer Active Arie Casper MD Active VITAMINS 0.8 MG ORAL TABLET take 1 tab po qday [id number] 87376152321 No Longer Active Arie Casper MD Active IBUPROFEN 800 MG ORAL TABLET take one po Q 8 hours 201 02/01/16 IBUPROFEN 09811829149 No Longer Active Arie Casper MD Acti ve [facility] TUSSIN COUGH/COLD CF 5-10-100 MG/5ML ORAL LIQUID 2 teasp oons every 4 hours [id number] 73204356976 No Longer Active Blaine Casper MD Active COMTREX COLD/COUGH DAY/NITE MS 5-2-10-325 MG ORAL 2 caps deja ry 4 hours [id number] 89631469019 No Longer Active Da aleksandra Casper MD Active CHLORASEPTIC MAX SORE THROAT 15-10 MG MOUTH/THROAT LOZENGE 1 every 2 hours prn BENZOCAINE-MENTHOL 90039070167 No Longer Active Arie Casper MD Active PREDNISONE 20 MG ORAL TABLET 2 tabs daily for 3 days, 1 tab daily for 3 days, 1/2 tab daily for 2 days PREDNISONE 55266699392 No Longer Active Jose Zhong MD Active AZITHROMYCIN 250 MG ORAL TABLET 2 po qd x 1 day, then 1 po q d x 4 days AZITHROMYCIN 20399903886 No Longer Active Jose Mcwilliams MD Active ZOFRAN ODT 4 MG ORAL TABLET DISINTEGRATING 1 po q6hr PRN Nausea ONDANSETRON 47566885811 No Longer Active Rich Rosales MD Active ZOFRAN 4 MG ORAL TABLET 1 tablet every 4 hours ONDANSETRON HCL 79607591319 No Longer Active Rich Rosales MD Activ e MUCINEX 600 MG ORAL TABLET EXTENDED RELEASE 12 HOUR Ta ke 1-2 tablets every 12 hours GUAIFENESIN 21908540346 No Longer Active Rich Rosales MD Active BACTRIM 400-80 MG ORAL TABLET take one po BID SULFAMETHOXAZOLE-TRIMETHOPRIM 72461552302 No Longer Active Abelardo HERNANDEZ Active AZITHROMYCIN 500 MG ORAL TABLET 1 PO q day x 6 days 20 03/02/23 AZITHROMYCIN 77549065819 No Longer Active Tin HERNANDEZ Activ e ZITHROMAX 250 MG ORAL TABLET 2 po today, then 1 po q days 2-5 20 10/03/08 AZITHROMYCIN 20251841244 No Longer Active Arie Casper MD Active ZITHROMAX 250 MG ORAL TABLET 2 po today, then 1 po q days 2-5 20 09/23/25 AZITHROMYCIN 67140439695 No Longer Active Arie Casper MD Active AMOXICILLIN 500 MG ORAL CAPSULE 1 tab by mouth 3 times daily 201 11/24/09 AMOXICILLIN 20498541250 No Longer Active Arie Casper MD Active BACTRIM DS 800-160 MG ORAL TABLET 1 tab by mouth twice daily 201 11/03/14 TRIMETHOPRIM-SULFAMETHOXAZOLE 39853847007 No Longer Active Fozia Casper MD Active AMOXICILLIN 500 MG ORAL TABLET take 1 tab po TID 08/05 AMOXICILLIN 33079505923 No Longer Active Arie Casper MD Acti ve BACTRIM DS 800-160 MG ORAL TABLET 1 tab by mouth twice daily 201 11/03/14 BACTRIM DS 800-160 MG ORAL TABLET 622881 TRIMETHOPRIM-SULFAMETHOXAZOLE Inactive MUCINEX 600 MG ORAL TABLET EXTENDED RELEASE 12 HOUR Ta ke 1-2 tablets every 12 hours MUCINEX 600 MG ORAL TABLET EXTENDED RELEA SE 12 HOUR GUAIFENESIN Inactive ZOFRAN 4 MG ORAL TABLET 1 tablet every 4 hours ZOFRAN 4 MG ORAL TABLET 988504 ONDANSETRON HCL Inactive ZOFRAN ODT 4 MG [...] COLD/COUGH DAY/NITE MS 5-2-10-325 MG ORA L [id number] Inactive [facility] TUSSIN COUGH/COLD CF 5-10-100 MG/5ML ORAL LIQUID 2 teasp oons every 4 hours [facility] TUSSIN COUGH/COLD CF 5-10-100 MG/5ML ORAL LI QUID [id number] Inactive IBUPROFEN 800 MG ORAL TABLET take one po Q 8 hours 201 02/01/16 IBUPROFEN 800 MG ORAL TABLET IBUPROFEN Inactive VITAMINS 0.8 MG ORAL TABLET take 1 tab po qday VITAMINS 0.8 MG ORAL TABLET [id number] E-FA Inactive TESSALON PERLES 100 MG ORAL CAPSULE 1 tablet by mouth 3 times da cory TESSALON PERLES 100 MG ORAL CAPSULE 699841 BENZONATATE Inactive AMOXICILLIN 500 MG ORAL CAPSULE 1 tab by mouth 3 times daily 201 02/21/05 AMOXICILLIN 500 MG ORAL CAPSULE 238287 AMOXICILLIN Inactive GUAIFENESIN-CODEINE 100-10 MG/5ML ORAL SYRUP 2 tsp every 6 hours prn GUAIFENESIN-CODEINE 100-10 MG/5ML ORAL SYRUP 664237 GUAIFENESIN-CODEINE Inactive VICKS DAYQUIL SEVERE COLD/FLU TABLET 1 tab every 6 hours prn 201 02/22/17 VICKS DAYQUIL SEVERE COLD/FLU TABLET PHENYLEPHRI [id number] TABS Inactive BACTRIM DS 800-160 MG ORAL TABLET 1 twice a day 05/30 BACTRIM DS 800-160 MG ORAL TABLET 131215 SULFAMETHOXAZOLE-TRIMETHOPRIM Inactiv e PROMETHAZINE HCL 25 MG ORAL TABLET 1 four times a day as nee ded for vomiting PROMETHAZINE HCL 25 MG ORAL TABLET 480071 PROMETHAZINE HCL Inactive ZYRTEC ALLERGY 10 MG ORAL CAPSULE 1 po qd ZYRTEC ALLERGY 10 MG ORAL CAPSULE CETIRIZINE HCL Inactive MACROBID 100 MG ORAL CAPSULE 1 cap by mouth twice daily MACROBID 100 MG ORAL CAPSULE 4095053 NITROFURANTOIN MONOHYD MACRO In active LOMOTIL 2.5-0.025 MG ORAL TABLET 1 to 2 four times a day as needed for diarrhea LOMOTIL 2.5-0.025 MG ORAL TABLET 9422149 DIPHENOXYLATE-ATROPINE Inactive CYCLOBENZAPRINE HCL 10 MG ORAL TABLET 1/2 - 1 tablet b y mouth three times daily as needed for muscle spasm/pain CYCLOBEN ZAPRINE HCL 10 MG ORAL TABLET 258242 CYCLOBENZAPRINE HCL Inactive AMOXICILLIN 500 MG ORAL TABLET 2 tabs twice a day for 10 days 20 07/09/11 AMOXICILLIN 500 MG ORAL TABLET 823427 AMOXICILLIN I nactive LOMOTIL 2.5-0.025 MG ORAL TABLET 1 to 2 four times a day as needed for diarrhea LOMOTIL 2.5-0.025 MG ORAL TABLET 9859424 DIPHENOXYLATE-ATROPINE Inactive ZOFRAN 4 MG ORAL TABLET 1 TAB PO Q 6 HRS PRN NAUSEA 20 07/10/15 ZOFRAN 4 MG ORAL TABLET 847371 ONDANSETRON HCL Inactive CITRATE OF MAGNESIA ORAL SOLUTION 1 bottle today for constipatio n CITRATE OF MAGNESIA ORAL SOLUTION 8248088 MAGNESIUM CITR ATE Inactive PROMETHAZINE HCL 12.5 MG ORAL TABLET 1 tablet by mouth every 6 hours as needed for nausea/vomiting PROMETHAZINE HCL 12.5 MG ORA L TABLET 139307 PROMETHAZINE HCL Inactive PREDNISONE 20 MG ORAL TABLET 1 tablet twice daily for 2 days, then 1 tablet once daily for 2 days PREDNISONE 20 MG ORAL TABLET 587571 PREDNISONE Inactive ALPRAZOLAM 0.25 MG ORAL TABLET 1 tablet by mouth every 8 hours as needed for stress ALPRAZOLAM 0.25 MG ORAL TABLET 885627 ALPRA ZOLAM Inactive FLONASE 50 MCG/ACT NASAL SUSPENSION 1 spray each nostr il twice daily for allergies and runny nose until gone FLON ASE 50 MCG/ACT NASAL SUSPENSION 2521200 FLUTICASONE PROPIONATE Inactive PREDNISONE 20 MG ORAL TABLET 1 tablet daily for airway inflammat ion PREDNISONE 20 MG ORAL TABLET 713453 PREDNISONE Arlen ctive NAPROXEN 500 MG ORAL TABLET Take 1 tab BID NAPROXEN 500 MG ORAL TABLET 615913 NAPROXEN Inactive ZOLOFT 50 MG ORAL TABLET 1 tablet by mouth daily 12/08 ZOLOFT 50 MG ORAL TABLET 660772 SERTRALINE HCL Inactive LOMOTIL 2.5-0.025 MG ORAL TABLET 1 tab po four times a day as needed for diarrhea LOMOTIL 2.5-0.025 MG ORAL TABLET 0446961 DIPHENOXYLATE-ATROPINE Inactive CETIRIZINE HCL 10 MG ORAL TABLET 1 po qd PRN Allergies CETIRIZINE HCL 10 MG ORAL TABLET 8911332 CETIRIZINE HCL Inactiv e TUSSIONEX PENNKINETIC ER 10-8 MG/5ML ORAL SUSPENSION E XTENDED RELEASE 5ml po q12hr PRN Cough TUSSIONEX PENNKINETI C ER 10-8 MG/5ML ORAL SUSPENSION EXTENDED RELEASE HYDROCOD POLST-CHLORPHEN POLST I nactive NEXPLANON IMPLANT right arm subcutaneously NEXPLANON IMPLANT ETONOGESTREL IMPL Inactive PROTONIX 40 MG ORAL TABLET DELAYED RELEASE 1 po q a.m. PROTONIX 40 MG ORAL TABLET DELAYED RELEASE 113883 PANTOPRAZOLE SODI UM Inactive CHERATUSSIN AC 100-10 MG/5ML ORAL SYRUP 1 tsp by mouth every 4 hours as needed for cough CHERATUSSIN AC 100-10 MG/5ML ORAL SYRUP 9 46784 GUAIFENESIN-CODEINE Inactive GUAIFENESIN DM 400-20 MG ORAL [...] tid K EFLEX 500 MG ORAL CAPSULE 409163 CEPHALEXIN Inactive DIFLUCAN 100 MG ORAL TABLET 1 tablet by mouth daily, R EPEAT 2ND DOSE IN 7 DAYS IF STILL SYMPTOMATIC DIFLUCAN 100 MG ORAL TABLET 60156 8 FLUCONAZOLE Inactive AMOXICILLIN 500 MG ORAL TABLET take 1 tab po TID 08/05 AMOXICILLIN 500 MG ORAL TABLET 397730 AMOXICILLIN Inactive AMOXICILLIN 500 MG ORAL CAPSULE 1 tab by mouth 3 times daily 201 11/24/09 AMOXICILLIN 500 MG ORAL CAPSULE 960568 AMOXICILLIN Inactive ZITHROMAX 250 MG ORAL TABLET 2 po today, then 1 po q days 2-5 20 09/23/25 ZITHROMAX 250 MG ORAL TABLET 632742 AZITHROMYCIN Arlen ctive ZITHROMAX 250 MG ORAL TABLET 2 po today, then 1 po q days 2-5 20 10/03/08 ZITHROMAX 250 MG ORAL TABLET 355916 AZITHROMYCIN Arlen ctive AZITHROMYCIN 500 MG ORAL TABLET 1 PO q day x 6 days 20 03/02/23 AZITHROMYCIN 500 MG ORAL TABLET 5587138 AZITHROMYCIN Inactive BACTRIM 400-80 MG ORAL TABLET take one po BID BACTRIM 400- 80 MG ORAL TABLET 113469 SULFAMETHOXAZOLE-TRIMETHOPRIM Inactive AZITHROMYCIN 250 MG ORAL TABLET 2 po qd x 1 day, then 1 po q d x 4 days AZITHROMYCIN 250 MG ORAL TABLET 871204 AZITHROMY ALLISON Inactive PREDNISONE 20 MG ORAL TABLET 2 tabs daily for 3 days, 1 tab daily for 3 days, 1/2 tab daily for 2 days PREDNISONE 20 MG ORAL T ABLET 591066 PREDNISONE Inactive ZITHROMAX 250 MG ORAL TABLET 2 po today, then 1 po q days 2-5 20 06/08/16 ZITHROMAX 250 MG ORAL TABLET 047834 AZITHROMYCIN Arlen ctive FLAGYL 500 MG ORAL TABLET 1 tablet by mouth two times daily 2014 FLAGYL 500 MG ORAL TABLET 683296 METRONIDAZOLE Inacti ve AUGMENTIN 875-125 MG ORAL TABLET 1 tab by mouth twice daily with food AUGMENTIN 875-125 MG ORAL TABLET 412846 AMOXICIL ELSA-POT CLAVULANATE Inactive NAPROXEN 500 MG ORAL TABLET one tab PO BID NAPROXEN 500 MG ORAL TABLET 292942 NAPROXEN Inactive PREDNISONE 20 MG ORAL TABLET 2 tabs daily for 3 days, 1 tab daily for 3 days, 1/2 tab daily for 2 days PREDNISONE 20 MG ORAL T ABLET 984861 PREDNISONE Inactive AZITHROMYCIN 250 MG ORAL TABLET 2 po qd x 1 day, then 1 po q d x 4 days AZITHROMYCIN 250 MG ORAL TABLET 551692 AZITHROMY ALLISON Inactive PREDNISONE 20 MG ORAL TABLET 2 tabs daily for 3 days, 1 tab daily for 3 days, 1/2 tab daily for 2 days PREDNISONE 20 MG ORAL T ABLET 134380 PREDNISONE Inactive ZITHROMAX Z-EMIL 250 MG ORAL TABLET 2 today, then 1 daily for 4 d ays ZITHROMAX Z-EMIL 250 MG ORAL TABLET 812358 AZITHROMYCIN Inactive CEFDINIR 300 MG ORAL CAPSULE 1 po BID x 10 days 12/18 CEFDINIR 300 MG ORAL CAPSULE 20030127 CEFDINIR Inactive CEFDINIR 300 MG ORAL CAPSULE 1 po BID x 10 days CEFDINIR 300 MG ORAL CAPSULE 237747 CEFDINIR Inactive PREDNISONE 20 MG ORAL TABLET 2 tabs daily for 3 days, 1 tab daily for 3 days, 1/2 tab daily for 2 days PREDNISONE 20 MG ORAL T ABLET 185755 PREDNISONE Inactive BACTRIM DS 800-160 MG ORAL TABLET 1 tab by mouth twice daily 201 05/02/30 BACTRIM DS 800-160 MG ORAL TABLET 845403 TRIMETHOPRIM-SULFAMETHOXAZOLE Inactive ZITHROMAX Z-EMIL 250 MG ORAL TABLET 2 today, then 1 daily for 4 d ays ZITHROMAX Z-EMIL 250 MG ORAL TABLET 572953 AZITHROMYCIN Inactive TAMIFLU 75 MG ORAL CAPSULE 1 po BID x 5 days 0 TAMIFLU 75 MG ORAL CAPSULE 551408 OSELTAMIVIR PHOSPHATE Inactive CEFDINIR 300 MG ORAL CAPSULE 1 po BID x 10 days 01/03 CEFDINIR 300 MG ORAL CAPSULE 060088 CEFDINIR Inactive ZITHROMAX Z-EMIL 250 MG TABS Take two tablets today and then 1 tablet daily for 4 days ZITHROMAX Z-EMIL 250 MG TABS 468690 AZITHROM YCIN Inactive AMOXICILLIN 875 MG ORAL TABLET 1 tab by mouth twice daily 1 AMOXICILLIN 875 MG ORAL TABLET 340382 AMOXICILLIN Inactive Advance Directives Directive Description Start [...] weight E&M 175 [lb_av] Weight Measure d blood pressure, diastolic 85 mm[Hg] BP kennedy blood pressure, systolic 131 mm[Hg] BP sys height E&M 66 [in_us] Bdy height pulse rate E&M 113 /min Heart rate temperature E&M 102.7 [degF] Body temp erature weight E&M 174.5 [lb_av] Weight Measure d Diagnostic Results Date [...] (L) - Chemistry TSH 0.95 m[iU]/mL 0.36-3.74 Office Visit: Evaluation for infertility - Chemistry [...] 0.2 Encounters Code Encounter Date Provider Facility [facility]-[id number] Vst-Est Level IV 13:45:[address] Tali Devi PA-C [facility]-[id number] 51622-Grl Vst-Est Level III 09:41:31 CDT Arie Casper MD [facility]-82590 [id number]-Cii Vst-Est Level III 18:20:11 CDT Me robin [facility]-76888 18448-Rao Vst-Est Level III 17:21:41 CDT Me lobito Russ [facility]74804 44392-Nas Vst-Est Level IV 13:30:22 C NIC Casper MD [facility]-[id number] Level 4 Est. Patient 13:05:26 CDT Myrna maldonado MD [facility]89131 32613-Ztu Vst-Est Level IV 20:50:21 C NIC Casper MD [facility]68610 Level 3 Est. 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 Patient 14:55:50 SIGN MAINTENANCE Jose Zhong MD [facility] CPT-92698 Level 3 Est. Patient 10:21:41 SIGN MAINTENANCE Arie mcqueen MD [facility] CPT-11679 Level 3 Est. Patient 11:35:15 SIGN MAINTENANCE Arie mcqueen MD [facility] CPT-57280 Level 3 Est. Patient 15:40:28 CDT Brii Are ll [facility] CPT-15565 Level 3 Est. Patient 16:40:36 CDT Arie mcqueen MD [facility] CPT-69004 Level 4 Est. Patient 15:29:22 SIGN MAINTENANCE Arie mcqueen MD [facility] CPT-08970 Level 3 Est. Patient 15:18:16 SIGN MAINTENANCE Jono black [facility] CPT-11769 Level 4 Est. Patient 12:08:40 SIGN MAINTENANCE Brii Are ll [facility] CPT-64560 Level 3 Est. Patient 09:24:42 CDT Brii Are [facility] CPT-05649 Level 3 Est. Patient 09:12:56 CDT Arie mcqueen MD [facility] CPT-18915 Level 3 Est. Patient 16:40:54 CDT Jose Zhong MD [facility] CPT-43806 Level 2 Est. Patient 13:01:13 CDT Brii Are ll [facility] CPT-95411 Level 3 Est. Patient 11:55:30 SIGN MAINTENANCE Jono black [facility] CPT-04033 Level 3 Est. Patient 09:52:36 SIGN MAINTENANCE Brii Are ll [facility] CPT-28132 Level 3 Est. Patient 16:25:33 SIGN MAINTENANCE Rich Rosales MD [facility] CPT-67551 Level 3 Est. Patient 20:33:55 CDT Arie mcqueen MD [facility] CPT-48921 Level 3 Est. Patient 14:18:20 CDT Rich Rosales MD [facility] CPT-36795 Level 4 Est. Patient 09:34:31 CDT Arie mcqueen MD [facility]-11548 Level 3 Est. Patient 09:08:55 SIGN MAINTENANCE Liliana vincent MD [facility]-11130 Level 3 Est. Patient 16:44:07 SIGN MAINTENANCE Arie mcqueen MD [facility] CPT-20910 Level 3 Est. Patient 10:44:27 CDT Arie mcqueen MD [facility]-73361 Level 3 Est. Patient 08:55:41 CDT Jose Zhong MD [facility] CPT-06740 Level 3 Est. Patient 18:37:31 CDT Liliana vincent MD [facility] CPT-95279 Level 3 Est. Patient 14:28:23 CDT Abelardo HERNANDEZ [facility]-51849 Level 3 Est. Patient 15:18:13 SIGN MAINTENANCE Arie mcqueen MD [facility] CPT-39632 Level 3 Est. Patient 10:11:29 SIGN MAINTENANCE Arie mcqueen MD [facility] CPT-67030 Level 3 Est. Patient 10:55:57 SIGN MAINTENANCE Jono black DO [facility] CPT-06597 Level 3 Est. Patient 17:29:05 CDT Arie mcqueen MD [facility] Procedures Code Procedure Name Date Entry Date Standard Desc ription CPT-79143 First Vx - Ix admin via ID I M or jet injects without counseling by physician 13:00:15 SIGN MAINTENANCE CPT-58673 Flulaval Intramuscular Injectable 13:00:15 SIGN MAINTENANCE CPT-39651 Urine Dip (Floor Use Only) 12:20:20 SIGN MAINTENANCE 201 06/03/24 CPT-27370 Sono Soft Tissue Head and Neck - XRAY US E ONLY 17:10:14 CDT CPT-49287 Ear Wash with irrigation 17:21:41 CDT 07/04 CPT-11527 Nexplanon Removal 15:40:28 CDT CPT-16079 Sono transvag pelvis non OB uterus ovari es cervix - XRAY USE ONLY 08:58:14 SIGN MAINTENANCE CPT-54759 UA w micro - LAB USE ONLY 16:04:56 SIGN MAINTENANCE 2015 CPT-82461 Wet Prep/GNE - LAB USE ONLY 16:04:56 SIGN MAINTENANCE 20 08/10/29 CPT-58745 First Vx - Ix admin via ID I M or jet injects without counseling by physician 16:57:10 CDT CPT-91550 Fluzone Preservative Free Intramuscular Suspension 16:57:10 CDT CPT-J0696 Rocephin 1000 mg (Ceftriaxone) 11:49:23 CDT CPT-J1040 Depo Medrol 80 mg (Methyl Prednisolone A cetate) 11:49:23 CDT CPT-J1100 Decadron 8mg (Dexamethasone) 11:49:23 CDT 2 CPT-61144 Abx/Therapy Injection 11:49:23 CDT CPT-61705 Abx/Therapy Injection 11:49:23 CDT CPT-07227 Abd compl w upright 09:07:26 SIGN MAINTENANCE CPT-54415 Ear Wash 16:12:47 SIGN MAINTENANCE CPT-OV Office Visit 11:12:01 CDT CPT-OV Office Visit 15:30:23 CDT CPT-93938 Sono pelvis non OB uterus ovaries cervix 15:50:44 CDT CPT-86889 Hand comp min 3V 16:42:32 CDT CPT-81127 Abd compl w upright 12:17:01 CDT CPT-76060 Nexplanon Placement 15:07:39 SIGN MAINTENANCE CPT-10154 Removal of IUD 15:07:39 SIGN MAINTENANCE CPT-16100 TB Tubersol 12:09:32 CDT CPT-38963 TB Tubersol 13:55:43 CDT
[2020-03-03] MEDS ORDERED: fentaNYL INJECTION 100 MCG/2 ML AMP ONE (07:04)
[2020-03-03] MEDS ORDERED: OXYTOCIN PRE-MIX DRIP 1,000 ML IV ONE (07:04)
[2020-03-03] MEDS ORDERED: BUPIVACAINE 0.5% 30 ML (SENSORCAINE) VIAL ONE (07:04)
--- OUTSIDE RECORDS SUMMARY | 2020-03-03 07:04 | XMS REPORT | Clinical Summary ---
Author Author Admin, Diamante Marcelo Organization [facility] Address Unknown Phone Unavailable Allergies, Adverse Reactions, [...] diabetes mellitus ACUTE FRONTAL SINUSITIS 461.1 Resolved A wendy Estrada MD PhD Acute frontal sinusitis CYSTITIS [...] respiratory manifestations Sinusitis 473.9 Active Jessica Heaton MENDING CARRIER Unspecified sinusitis (chronic) Other mixed anxiety 300.00 [...] Cerumen impaction, bilateral 380.4 Active Brii Russ MENDING CARRIER Impacted cerumen Tonsillar enlargement 474.11 Active Brii Russ APRN Hypertrophy of tonsils alone Influenza Vaccination for Prophylaxis V04.81 Inactive Brii Russ [employer]ENDING CARRIER Need for prophylactic vaccin ation and inoculation against influenza Submandibular lymph node 785.6 Active Brii Are ll MENDING CARRIER Enlargement of lymph nodes Influenza Vaccination for [...] PA-C BREAST CANCER ICD-V16.3 Inactive Jose Marcelo COLON [...] SINUSITIS ICD-461.1 Inactive Meghan Estrada MD PhD Symptom, cough ICD-786.2 Inactive Liliana Estrada MD PhD Vaginal discharge ICD-623.5 Inactive Liliana lares MD PhD Sinusitis, acute ICD-461.9 Inactive Liliana cheema MD PhD Urinary frequency ICD-788.41 Inactive Jose Zhong MD Vaginal bleeding ICD-623.8 Inactive Jose Mcwilliams MD Fever ICD-780.60 Inactive Liliana Estrada MD PhD 20 08/12/16 Influenza Vaccination for Prophylaxis ICD-V04.81 6 Inactive Carole Valdivia A Influenza Vaccination for Prophylaxis ICD-V04.81 8 Inactive Nilam Weber Influenza Vaccination for Prophylaxis ICD-V04.81 5 Inactive Liliana Gaspar Meghan Medication List Medication Instructions Start Date Stop Date Generic Name NDC Status Provider Patient Instruction DIFLUCAN 100 MG ORAL TABLET 1 tablet by mouth daily, R EPEAT 2ND DOSE IN 7 DAYS IF STILL SYMPTOMATIC FLUCONAZOLE 99677264404 Active Nayana Devi PA-C Active KEFLEX 500 MG ORAL CAPSULE 1 po tid CEPHALEXI N 74406106702 No Longer Active Tali Devi PA-C Active CONCEPT DHA 53.5-38-1 MG ORAL CAPSULE 1 tablet daily [id number] 3 03324168711 Active Oxana Souza LPN Active PROTONIX 40 MG ORAL TABLET DELAYED RELEASE 1 pill by m outh daily, for acid reflux PANTOPRAZOLE SODIUM 61923320087 Active Roseann Crawford Active AMOXICILLIN 875 MG ORAL TABLET 1 tab by mouth twice daily 1 AMOXICILLIN 88641052536 No Longer Active Brii Russ APRN Active ALPRAZOLAM 0.25 MG ORAL TABLET 1 tablet by mouth twice a day as needed for stress/anxiety ALPRAZOLAM 19499204089 Active KELLIE Escobar Active ESCITALOPRAM OXALATE 10 MG ORAL TABLET take 1 tab po qhs for mod 20 10/04/18 ESCITALOPRAM OXALATE 13267889409 Active Arie Casper MD Active TUSSIONEX PENNKINETIC ER 10-8 MG/5ML ORAL SUSPENSION E XTENDED RELEASE 5ml po q12hr PRN Cough HYDROCOD POLST-CHLORPHEN POLST 5 2184245970 No Longer Active Myrna Roberto MD Active ZITHROMAX Z-EMIL 250 MG TABS Take two tablets today and then 1 tablet daily for 4 days AZITHROMYCIN 88678585296 No Longer Active Flaco Rosales MD Active GUAIFENESIN DM 400-20 MG ORAL TABLET 1 pill by mouth t wice daily, if needed for cough DEXTROMETHORPHAN-GUAIFENESIN 17619289101 No Longer Active Rich Rosales MD Active CEFDINIR 300 MG ORAL CAPSULE 1 po BID x 10 days CEFDINIR 80306604705 No Longer Active Jillarlen Heaton APRN Active CHERATUSSIN AC 100-10 MG/5ML ORAL SYRUP 1 tsp by mouth every 4 hours as needed for cough GUAIFENESIN-CODEINE 39413827761 No Longe r Active Waynellina Florina MENDING CARRIER Active TAMIFLU 75 MG ORAL CAPSULE 1 po BID x 5 days 0 OSELTAMIVIR PHOSPHATE 85379957851 No Longer Active Jose Zhong MD Activ e ZITHROMAX Z-EMIL 250 MG ORAL TABLET 2 today, then 1 daily for 4 d ays AZITHROMYCIN 51225774294 No Longer Active Arie Casper MD Active PROTONIX 40 MG ORAL TABLET DELAYED RELEASE 1 po q a.m. PANTOPRAZOLE SODIUM 84442437166 No Longer Active Arie Casper MD Active BACTRIM DS 800-160 MG ORAL TABLET 1 tab by mouth twice daily 201 05/02/30 TRIMETHOPRIM-SULFAMETHOXAZOLE 34322877607 No Longer Active R [facility] Ty Active NEXPLANON IMPLANT right arm subcutaneously ETONOGESTREL IMPL 29465427651 No Longer Active Brii Russ APRN Active TUSSIONEX PENNKINETIC ER 10-8 MG/5ML ORAL SUSPENSION E XTENDED RELEASE 5ml po q12hr PRN Cough HYDROCOD POLST-CHLORPHEN POLST 5 8792949178 No Longer Active Brii Russ APRN Active CETIRIZINE HCL 10 MG ORAL TABLET 1 po qd PRN Allergies CETIRIZINE HCL 86519736731 No Longer Active Brii Russ APRN Activ e PREDNISONE 20 MG ORAL TABLET 2 tabs daily for 3 days, 1 tab daily for 3 days, 1/2 tab daily for 2 days PREDNISONE 28708026903 No Longer Active Arie Casper MD Active LOMOTIL 2.5-0.025 MG ORAL TABLET 1 tab po four times a day as needed for diarrhea DIPHENOXYLATE-ATROPINE 92933859221 No Lo nger Active Arie Casper MD Active ZOLOFT 50 MG ORAL TABLET 1 tablet by mouth daily 12/08 SERTRALINE HCL 22353774185 No Longer Active Arie Casper MD Ac tive NAPROXEN 500 MG ORAL TABLET Take 1 tab BID NAPR OXEN 64684307455 No Longer Active Arie Casper MD Active CEFDINIR 300 MG ORAL CAPSULE 1 po BID x 10 days CEFDINIR 36615442151 No Longer Active Brii Russ APRN Active PREDNISONE 20 MG ORAL TABLET 1 tablet daily for airway inflammat ion PREDNISONE 62988847255 No Longer Active Brii Russ APRN A ctive CEFDINIR 300 MG ORAL CAPSULE 1 po BID x 10 days CEFDINIR 78187399339 No Longer Active Jono Gagnon DO Active FLONASE 50 MCG/ACT NASAL SUSPENSION 1 spray each nostr il twice daily for allergies and runny nose until gone FLUT ICASONE PROPIONATE 02007925900 No Longer Active Jono Gagnon DO Active ALPRAZOLAM 0.25 MG ORAL TABLET 1 tablet by mouth every 8 hours as needed for stress ALPRAZOLAM 59864807548 No Longer Active Jono Gagnon DO Active ZITHROMAX Z-EMIL 250 MG ORAL TABLET 2 today, then 1 daily for 4 d ays AZITHROMYCIN 86441127361 No Longer Active Arie Casper MD Active PREDNISONE 20 MG ORAL TABLET 2 tabs daily for 3 days, 1 tab daily for 3 days, 1/2 tab daily for 2 days PREDNISONE 02535676369 No Longer Active Brii Russ APRN Active PREDNISONE 20 MG ORAL TABLET 1 tablet twice daily for 2 days, then 1 tablet once daily for 2 days PREDNISONE 22162098540 No Longer Active Brii Russ APRN Active PROMETHAZINE HCL 12.5 MG ORAL TABLET 1 tablet by mouth every 6 hours as needed for nausea/vomiting PROMETHAZINE HCL 32815983145 No L onger Active Jono Gagnon DO Active CITRATE OF MAGNESIA ORAL SOLUTION 1 bottle today for constipatio n MAGNESIUM CITRATE 08220045669 No Longer Active Jono Gagnon DO Active ZOFRAN 4 MG ORAL TABLET 1 TAB PO Q 6 HRS PRN NAUSEA 07/10/15 ONDANSETRON HCL 07419538404 No Longer Active Brii Russ APRN Acti ve LOMOTIL 2.5-0.025 MG ORAL TABLET 1 to 2 four times a day as needed for diarrhea DIPHENOXYLATE-ATROPINE 00234100533 No Longer Active January Russ APRN Active AMOXICILLIN 500 MG ORAL TABLET 2 tabs twice a day for 10 days 20 07/09/11 AMOXICILLIN 37876164836 No Longer Active Brii Russ APRN Active CYCLOBENZAPRINE HCL 10 MG ORAL TABLET 1/2 - 1 tablet b y mouth three times daily as needed for muscle spasm/pain CYCLOBENZAPRINE HCL 64098483130 No Longer Active Arie Casper MD Active LOMOTIL 2.5-0.025 MG ORAL TABLET 1 to 2 four times a day as needed for diarrhea DIPHENOXYLATE-ATROPINE 90868760397 No Longer Active Fozia Casper MD Active MACROBID 100 MG ORAL CAPSULE 1 cap by mouth twice daily NITROFURANTOIN MONOHYD MACRO 72966658522 No Longer Active Arie Casper MD Active ZYRTEC ALLERGY 10 MG ORAL CAPSULE 1 po qd CE TIRIZINE HCL 39257723415 No Longer Active Arie Casper MD Active AZITHROMYCIN 250 MG ORAL TABLET 2 po qd x 1 day, then 1 po q d x 4 days AZITHROMYCIN 00301297718 No Longer Active Jillina Fra naomi MENDING CARRIER Active PREDNISONE 20 MG ORAL TABLET 2 tabs daily for 3 days, 1 tab daily for 3 days, 1/2 tab daily for 2 days PREDNISONE 56244443096 No Longer Active Jillina Fradeepl MENDING CARRIER Active PROMETHAZINE HCL 25 MG ORAL TABLET 1 four times a day as nee ded for vomiting PROMETHAZINE HCL 69536527508 No Longer Active Myrna Roberto MD Active BACTRIM DS 800-160 MG ORAL TABLET 1 twice a day 05/30 SULFAMETHOXAZOLE-TRIMETHOPRIM 63957021121 No Longer Active Myrna Roberto MD Active VICKS DAYQUIL SEVERE COLD/FLU TABLET 1 tab every 6 hours prn 201 02/22/17 [id number] TABS 24674164272 No Longer Active Chris Roberto MD Active GUAIFENESIN-CODEINE 100-10 MG/5ML ORAL SYRUP 2 tsp every 6 hours prn GUAIFENESIN-CODEINE 83208253499 No Longer Active Myrna Roberto MD Active NAPROXEN 500 MG ORAL TABLET one tab PO BID NAPR OXEN 83865216947 No Longer Active Myrna Roberto MD Active AUGMENTIN 875-125 MG ORAL TABLET 1 tab by mouth twice daily with food AMOXICILLIN-POT CLAVULANATE 03596166070 No Longer Act zaid Liliana Estrada MD PhD Active AMOXICILLIN 500 MG ORAL CAPSULE 1 tab by mouth 3 times daily 201 02/21/05 AMOXICILLIN 33987511639 No Longer Active Liliana Estrada MD PhD Active TESSALON PERLES 100 MG ORAL CAPSULE 1 tablet by mouth 3 times da cory BENZONATATE 60094856112 No Longer Active Liliana Estrada MD PhD Active FLAGYL 500 MG ORAL TABLET 1 tablet by mouth two times daily 2014 METRONIDAZOLE 30087487995 No Longer Active Nilam ida Ac tive ZITHROMAX 250 MG ORAL TABLET 2 po today, then 1 po q days 2-5 20 06/08/16 AZITHROMYCIN 58215565354 No Longer Active Arie Casper MD Active VITAMINS 0.8 MG ORAL TABLET take 1 tab po qday [id number] 46215499023 No Longer Active Arie Casper MD Active IBUPROFEN 800 MG ORAL TABLET take one po Q 8 hours 201 02/01/16 IBUPROFEN 53876036119 No Longer Active Arie Casper MD Acti ve [facility] TUSSIN COUGH/COLD CF 5-10-100 MG/5ML ORAL LIQUID 2 teasp oons every 4 hours [id number] 61660238842 No Longer Active Blaine Casper MD Active COMTREX COLD/COUGH DAY/NITE MS 5-2-10-325 MG ORAL 2 caps deja ry 4 hours [id number] 74994720115 No Longer Active Da aleksandra Casper MD Active CHLORASEPTIC MAX SORE THROAT 15-10 MG MOUTH/THROAT LOZENGE 1 every 2 hours prn BENZOCAINE-MENTHOL 52833812043 No Longer Active Arie Casper MD Active PREDNISONE 20 MG ORAL TABLET 2 tabs daily for 3 days, 1 tab daily for 3 days, 1/2 tab daily for 2 days PREDNISONE 92755873588 No Longer Active Jose Zhong MD Active AZITHROMYCIN 250 MG ORAL TABLET 2 po qd x 1 day, then 1 po q d x 4 days AZITHROMYCIN 33380949248 No Longer Active Jose Mcwilliams MD Active ZOFRAN ODT 4 MG ORAL TABLET DISINTEGRATING 1 po q6hr PRN Nausea ONDANSETRON 29295642600 No Longer Active Rich Rosales MD Active ZOFRAN 4 MG ORAL TABLET 1 tablet every 4 hours ONDANSETRON HCL 85720401847 No Longer Active Rich Rosales MD Activ e MUCINEX 600 MG ORAL TABLET EXTENDED RELEASE 12 HOUR Ta ke 1-2 tablets every 12 hours GUAIFENESIN 85193760885 No Longer Active Rich Rosales MD Active BACTRIM 400-80 MG ORAL TABLET take one po BID SULFAMETHOXAZOLE-TRIMETHOPRIM 37786213324 No Longer Active Abelardo HERNANDEZ Active AZITHROMYCIN 500 MG ORAL TABLET 1 PO q day x 6 days 20 03/02/23 AZITHROMYCIN 52680155266 No Longer Active Tin HERNANDEZ Activ e ZITHROMAX 250 MG ORAL TABLET 2 po today, then 1 po q days 2-5 20 10/03/08 AZITHROMYCIN 64429788615 No Longer Active Arie Casper MD Active ZITHROMAX 250 MG ORAL TABLET 2 po today, then 1 po q days 2-5 20 09/23/25 AZITHROMYCIN 37722058500 No Longer Active Arie Casper MD Active AMOXICILLIN 500 MG ORAL CAPSULE 1 tab by mouth 3 times daily 201 11/24/09 AMOXICILLIN 53492311021 No Longer Active Arie Casper MD Active BACTRIM DS 800-160 MG ORAL TABLET 1 tab by mouth twice daily 201 11/03/14 TRIMETHOPRIM-SULFAMETHOXAZOLE 04504244625 No Longer Active Fozia Casper MD Active AMOXICILLIN 500 MG ORAL TABLET take 1 tab po TID 08/05 AMOXICILLIN 69905184844 No Longer Active Arie Casper MD Acti [...] 4 hours ZOFRAN 4 MG ORAL TABLET 888939 ONDANSETRON HCL Inactive ZOFRAN ODT 4 MG [...] COLD/COUGH DAY/NITE MS 5-2-10-325 MG ORA L [id number] Inactive [facility] TUSSIN COUGH/COLD CF 5-10-100 MG/5ML ORAL LIQUID 2 teasp oons every 4 hours [facility] TUSSIN COUGH/COLD CF 5-10-100 MG/5ML ORAL LI QUID [id number] Inactive IBUPROFEN 800 MG ORAL TABLET take one po Q 8 hours 201 02/01/16 IBUPROFEN 800 MG ORAL TABLET IBUPROFEN Inactive VITAMINS 0.8 MG ORAL TABLET take 1 tab po qday VITAMINS 0.8 MG ORAL TABLET [id number] E-FA Inactive TESSALON PERLES 100 MG ORAL CAPSULE 1 tablet by mouth 3 times da cory TESSALON PERLES 100 MG ORAL CAPSULE 976884 BENZONATATE Inactive AMOXICILLIN 500 MG ORAL CAPSULE 1 tab by mouth 3 times daily 201 02/21/05 AMOXICILLIN 500 MG ORAL CAPSULE 224857 AMOXICILLIN Inactive GUAIFENESIN-CODEINE 100-10 MG/5ML ORAL SYRUP 2 tsp every 6 hours prn GUAIFENESIN-CODEINE 100-10 MG/5ML ORAL SYRUP 140185 GUAIFENESIN-CODEINE Inactive VICKS DAYQUIL SEVERE COLD/FLU TABLET 1 tab every 6 hours prn 201 02/22/17 VICKS DAYQUIL SEVERE COLD/FLU TABLET PHENYLEPHRI SA-GU-OK-APAP TABS Inactive BACTRIM DS 800-160 MG ORAL TABLET 1 twice a day 05/30 BACTRIM DS 800-160 MG ORAL TABLET 211618 SULFAMETHOXAZOLE-TRIMETHOPRIM Inactiv e PROMETHAZINE HCL 25 MG ORAL TABLET 1 four times a day as nee ded for vomiting PROMETHAZINE HCL 25 MG ORAL TABLET 271375 PROMETHAZINE HCL Inactive ZYRTEC ALLERGY 10 MG ORAL CAPSULE 1 po qd ZYRTEC ALLERGY 10 MG ORAL CAPSULE CETIRIZINE HCL Inactive MACROBID 100 MG ORAL CAPSULE 1 cap by mouth twice daily MACROBID 100 MG ORAL CAPSULE 6573187 NITROFURANTOIN MONOHYD MACRO In active LOMOTIL 2.5-0.025 MG ORAL TABLET 1 to 2 four times a day as needed for diarrhea LOMOTIL 2.5-0.025 MG ORAL TABLET 1987160 DIPHENOXYLATE-ATROPINE Inactive CYCLOBENZAPRINE HCL 10 MG ORAL TABLET 1/2 - 1 tablet b y mouth three times daily as needed for muscle spasm/pain CYCLOBEN ZAPRINE HCL 10 MG ORAL TABLET 189159 CYCLOBENZAPRINE HCL Inactive AMOXICILLIN 500 MG ORAL TABLET 2 tabs twice a day for 10 days 20 07/09/11 AMOXICILLIN 500 MG ORAL TABLET 992930 AMOXICILLIN I nactive LOMOTIL 2.5-0.025 MG ORAL TABLET 1 to 2 four times a day as needed for diarrhea LOMOTIL 2.5-0.025 MG ORAL TABLET 5137966 DIPHENOXYLATE-ATROPINE Inactive ZOFRAN 4 MG ORAL TABLET 1 TAB PO Q 6 HRS PRN NAUSEA 20 07/10/15 ZOFRAN 4 MG ORAL TABLET 388064 ONDANSETRON HCL Inactive CITRATE OF MAGNESIA ORAL SOLUTION 1 bottle today for constipatio n CITRATE OF MAGNESIA ORAL SOLUTION 4265331 MAGNESIUM CITR ATE Inactive PROMETHAZINE HCL 12.5 MG ORAL TABLET 1 tablet by mouth every 6 hours as needed for nausea/vomiting PROMETHAZINE HCL 12.5 MG ORA L TABLET 211826 PROMETHAZINE HCL Inactive PREDNISONE 20 MG ORAL TABLET 1 tablet twice daily for 2 days, then 1 tablet once daily for 2 days PREDNISONE 20 MG ORAL TABLET 819205 PREDNISONE Inactive ALPRAZOLAM 0.25 MG ORAL TABLET 1 tablet by mouth every 8 hours as needed for stress ALPRAZOLAM 0.25 MG ORAL TABLET 605606 ALPRA ZOLAM Inactive FLONASE 50 MCG/ACT NASAL SUSPENSION 1 spray each nostr il twice daily for allergies and runny nose until gone FLON ASE 50 MCG/ACT NASAL SUSPENSION 1812557 FLUTICASONE PROPIONATE Inactive PREDNISONE 20 MG ORAL TABLET 1 tablet daily for airway inflammat ion PREDNISONE 20 MG ORAL TABLET 482368 PREDNISONE [place] ctive NAPROXEN 500 MG ORAL TABLET Take 1 tab BID NAPROXEN 500 MG ORAL TABLET 494624 NAPROXEN Inactive ZOLOFT 50 MG ORAL TABLET 1 tablet by mouth daily 12/08 ZOLOFT 50 MG ORAL TABLET 685893 SERTRALINE HCL Inactive LOMOTIL 2.5-0.025 MG ORAL TABLET 1 tab po four times a day as needed for diarrhea LOMOTIL 2.5-0.025 MG ORAL TABLET 0026127 DIPHENOXYLATE-ATROPINE Inactive CETIRIZINE HCL 10 MG ORAL TABLET 1 po qd PRN Allergies CETIRIZINE HCL 10 MG ORAL TABLET 7910581 CETIRIZINE HCL Inactiv e TUSSIONEX PENNKINETIC ER 10-8 MG/5ML ORAL SUSPENSION E XTENDED RELEASE 5ml po q12hr PRN Cough TUSSIONEX PENNKINETI C ER 10-8 MG/5ML ORAL SUSPENSION EXTENDED RELEASE HYDROCOD POLST-CHLORPHEN POLST I nactive NEXPLANON IMPLANT right arm subcutaneously NEXPLANON IMPLANT ETONOGESTREL IMPL Inactive PROTONIX 40 MG ORAL TABLET DELAYED RELEASE 1 po q a.m. PROTONIX 40 MG ORAL TABLET DELAYED RELEASE 431903 PANTOPRAZOLE SODI UM Inactive CHERATUSSIN AC 100-10 MG/5ML ORAL SYRUP 1 tsp by mouth every 4 hours as needed for cough CHERATUSSIN AC 100-10 MG/5ML ORAL SYRUP 9 99405 GUAIFENESIN-CODEINE Inactive GUAIFENESIN DM 400-20 MG ORAL [...] tid K EFLEX 500 MG ORAL CAPSULE 029500 CEPHALEXIN Inactive AMOXICILLIN 500 MG ORAL TABLET take 1 tab po TID 08/05 AMOXICILLIN 500 MG ORAL TABLET 003313 AMOXICILLIN Inactive AMOXICILLIN 500 MG ORAL CAPSULE 1 tab by mouth 3 times daily 201 11/24/09 AMOXICILLIN 500 MG ORAL CAPSULE 301536 AMOXICILLIN Inactive ZITHROMAX 250 MG ORAL TABLET 2 po today, then 1 po q days 2-5 20 09/23/25 ZITHROMAX 250 MG ORAL TABLET 584667 AZITHROMYCIN [place] ctive ZITHROMAX 250 MG ORAL TABLET 2 po today, then 1 po q days 2-5 20 10/03/08 ZITHROMAX 250 MG ORAL TABLET 439567 AZITHROMYCIN [place] ctive AZITHROMYCIN 500 MG ORAL TABLET 1 PO q day x 6 days 20 03/02/23 AZITHROMYCIN 500 MG ORAL TABLET 7950642 AZITHROMYCIN Inactive BACTRIM 400-80 MG ORAL TABLET take one po BID BACTRIM 400- 80 MG ORAL TABLET 974788 SULFAMETHOXAZOLE-TRIMETHOPRIM Inactive AZITHROMYCIN 250 MG ORAL TABLET 2 po qd x 1 day, then 1 po q d x 4 days AZITHROMYCIN 250 MG ORAL TABLET 452833 AZITHROMY ALLISON Inactive PREDNISONE 20 MG ORAL TABLET 2 tabs daily for 3 days, 1 tab daily for 3 days, 1/2 tab daily for 2 days PREDNISONE 20 MG ORAL T ABLET 525074 PREDNISONE Inactive ZITHROMAX 250 MG ORAL TABLET 2 po today, then 1 po q days 2-5 20 06/08/16 ZITHROMAX 250 MG ORAL TABLET 321791 AZITHROMYCIN Ar[place] ctive FLAGYL 500 MG ORAL TABLET 1 tablet by mouth two times daily 2014 FLAGYL 500 MG ORAL TABLET 776226 METRONIDAZOLE Inacti ve AUGMENTIN 875-125 MG ORAL TABLET 1 tab by mouth twice daily with food AUGMENTIN 875-125 MG ORAL TABLET 835582 AMOXICIL ELSA-POT CLAVULANATE Inactive NAPROXEN 500 MG ORAL TABLET one tab PO BID NAPROXEN 500 MG ORAL TABLET 844993 NAPROXEN Inactive PREDNISONE 20 MG ORAL TABLET 2 tabs daily for 3 days, 1 tab daily for 3 days, 1/2 tab daily for 2 days PREDNISONE 20 MG ORAL T ABLET 617496 PREDNISONE Inactive AZITHROMYCIN 250 MG ORAL TABLET 2 po qd x 1 day, then 1 po q d x 4 days AZITHROMYCIN 250 MG ORAL TABLET 824278 AZITHROMY ALLISON Inactive PREDNISONE 20 MG ORAL TABLET 2 tabs daily for 3 days, 1 tab daily for 3 days, 1/2 tab daily for 2 days PREDNISONE 20 MG ORAL T ABLET 256516 PREDNISONE Inactive ZITHROMAX Z-EMIL 250 MG ORAL TABLET 2 today, then 1 daily for 4 d ays ZITHROMAX Z-EMIL 250 MG ORAL TABLET 685648 AZITHROMYCIN Inactive CEFDINIR 300 MG ORAL CAPSULE [...] days PREDNISONE 20 MG ORAL T ABLET 526210 PREDNISONE Inactive BACTRIM DS 800-160 MG ORAL TABLET 1 tab by mouth twice daily 201 05/02/30 BACTRIM DS 800-160 MG ORAL TABLET 971246 TRIMETHOPRIM-SULFAMETHOXAZOLE Inactive ZITHROMAX Z-EMIL 250 MG ORAL TABLET 2 today, then 1 daily for 4 d ays ZITHROMAX Z-EMIL 250 MG ORAL TABLET 095988 AZITHROMYCIN Inactive TAMIFLU 75 MG ORAL CAPSULE 1 po BID x 5 days 0 TAMIFLU 75 MG ORAL CAPSULE 647797 OSELTAMIVIR PHOSPHATE Inactive CEFDINIR 300 MG ORAL CAPSULE 1 po BID x 10 days 2018/01/03 CEFDINIR 300 MG ORAL CAPSULE 404268 CEFDINIR Inactive ZITHROMAX Z-EMIL 250 MG TABS Take two tablets today and then 1 tablet daily for 4 days ZITHROMAX Z-EMIL 250 MG TABS 354511 AZITHROM YCIN Inactive AMOXICILLIN 875 MG ORAL TABLET 1 tab by mouth twice daily AMOXICILLIN 875 MG ORAL TABLET 777983 AMOXICILLIN Inactive Advance Directives Directive Description Start [...] 0.2 Encounters Code Encounter Date Provider Facility [facility]-69253 [id number] Vst-Est Level IV 13:45:[address] Tali Devi PA-C [facility]07505 [id number] Vst-Est Level III 09:41:31 CDT Arie Casper MD [facility]35686 [id number] Vst-Est Level III 18:20:11 CDT [facility]61020 43153-Pzm Vst-Est Level III 17:21:41 CDT [facility]36179 56277-Bvp Vst-Est Level IV 13:30:22 C NIC Casper MD [facility]94862 Level 4 Est. Patient 13:05:26 CDT Myrna maldonado MD [facility]18534 88453-Wgv Vst-Est Level IV 20:50:21 C DT Aire Casper MD [facility]-76072 Level 3 Est. Patient 11:49:34 SENIOR BILLING CONSULTANT Jessica boyd [facility]60434 Level 3 Est. Patient 14:55:50 SENIOR BILLING CONSULTANT Jose Zhong MD [facility]78912 Level 3 Est. Patient 10:21:41 SENIOR BILLING CONSULTANT Arie mcqueen MD [facility] CPT-37467 Level 3 Est. Patient 11:35:15 SENIOR BILLING CONSULTANT Arie mcqueen MD [facility] CPT-17156 Level 3 Est. Patient 15:40:28 CDT Brii Are ll [facility] CPT-13912 Level 3 Est. Patient 16:40:36 CDT Arie mcqueen MD [facility] CPT-42162 Level 4 Est. Patient 15:29:22 SENIOR BILLING CONSULTANT Arie mcqueen MD [facility] CPT-76873 Level 3 Est. Patient 15:18:16 SENIOR BILLING CONSULTANT Jono black [facility] CPT-56260 Level 4 Est. Patient 12:08:40 SENIOR BILLING CONSULTANT Brii Are ll [facility] CPT-04177 Level 3 Est. Patient 09:24:42 CDT Brii Are [facility] CPT-80463 Level 3 Est. Patient 09:12:56 CDT Arie mcqueen MD [facility] CPT-51632 Level 3 Est. Patient 16:40:54 CDT Jose Zhong MD [facility] CPT-01432 Level 2 Est. Patient 13:01:13 CDT Brii Are ll [facility] CPT-78796 Level 3 Est. Patient 11:55:30 SENIOR BILLING CONSULTANT Jono black [facility] CPT-18261 Level 3 Est. Patient 09:52:36 SENIOR BILLING CONSULTANT Brii Are ll [facility] CPT-46432 Level 3 Est. Patient 16:25:33 SENIOR BILLING CONSULTANT Rich Rosales MD [facility] CPT-14266 Level 3 Est. Patient 20:33:55 CDT Arie mcqueen MD [facility] CPT-15900 Level 3 Est. Patient 14:18:20 CDT Rich Rosales MD [facility] CPT-52691 Level 4 Est. Patient 09:34:31 CDT Arie mcqueen MD [facility] CPT-14525 Level 3 Est. Patient 09:08:55 SENIOR BILLING CONSULTANT Liliana vincent MD PhD [facility] CPT-77029 Level 3 Est. Patient 16:44:07 SENIOR BILLING CONSULTANT Arie mcqueen MD [facility] CPT-73067 Level 3 Est. Patient 10:44:27 CDT Arie mcqueen MD [facility] CPT-39140 Level 3 Est. Patient 08:55:41 CDT Jose Zhong MD [facility] CPT-84661 Level 3 Est. Patient 18:37:31 CDT Liliana vincent MD PhD [facility] CPT-37277 Level 3 Est. Patient 14:28:23 CDT Abelardo HERNANDEZ [facility] CPT-42923 Level 3 Est. Patient 15:18:13 SENIOR BILLING CONSULTANT Arie mcqueen MD [facility] CPT-40108 Level 3 Est. Patient 10:11:29 SENIOR BILLING CONSULTANT Arie mcqueen MD [facility] CPT-23137 Level 3 Est. Patient 10:55:57 SENIOR BILLING CONSULTANT Jono black DO [facility] CPT-11995 Level 3 Est. Patient 17:29:05 CDT Arie mcqueen MD [facility] Procedures Code Procedure Name Date Entry Date Standard Desc ription CPT-99211 First Vx - Ix admin via ID I M or jet injects without counseling by physician 13:00:15 SENIOR BILLING CONSULTANT CPT-71315 Flulaval Intramuscular Injectable 13:00:15 SENIOR BILLING CONSULTANT CPT-93413 Urine Dip (Floor Use Only) 12:20:20 SENIOR BILLING CONSULTANT 201 06/03/24 CPT-83548 Sono Soft Tissue Head and Neck - XRAY US E ONLY 17:10:14 CDT CPT-08842 Ear Wash with irrigation 17:21:41 CDT 07/04 CPT-27887 Nexplanon Removal 15:40:28 CDT CPT-88556 Sono transvag pelvis non OB uterus ovari es cervix - XRAY USE ONLY 08:58:14 SENIOR BILLING CONSULTANT CPT-06705 UA w micro - LAB USE ONLY 16:04:56 SENIOR BILLING CONSULTANT 2015 CPT-38023 Wet Prep/GEN - LAB USE ONLY 16:04:56 SENIOR BILLING CONSULTANT 20 08/10/29 CPT-37858 First Vx - Ix admin via ID I M or jet injects without counseling by physician 16:57:10 CDT CPT-50424 Fluzone Preservative Free Intramuscular Suspension 16:57:10 CDT CPT-J0696 Rocephin 1000 mg (Ceftriaxone) 11:49:23 CDT CPT-J1040 Depo Medrol 80 mg (Methyl Prednisolone A cetate) 11:49:23 CDT CPT-J1100 Decadron 8mg (Dexamethasone) 11:49:23 CDT 2 CPT-81848 Abx/Therapy Injection 11:49:23 CDT CPT-62010 Abx/Therapy Injection 11:49:23 CDT CPT-70088 Abd compl w upright 09:07:26 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
--- OUTSIDE RECORDS SUMMARY | 2020-03-03 07:04 | XMS REPORT | Clinical Summary ---
Author Author Admin, Diamante Marcelo Organization [employer] Address Unknown Phone Unavailable Allergies, Adverse Reactions, [...] respiratory manifestations Sinusitis 473.9 Active Jessica Heaton PET CARE ATTENDANT Unspecified sinusitis (chronic) Other mixed anxiety 300.00 [...] Cerumen impaction, bilateral 380.4 Active Brii Russ PET CARE ATTENDANT Impacted cerumen Tonsillar enlargement 474.11 Active Brii Russ APRN Hypertrophy of tonsils alone Influenza Vaccination for Prophylaxis V04.81 Inactive Brii Russ PET CARE ATTENDANT Need for prophylactic vaccin ation and inoculation against influenza Submandibular lymph node 785.6 Active Brii Are ll PET CARE ATTENDANT Enlargement of lymph nodes Influenza Vaccination for [...] genital organs DYSPAREUNIA Active Tali Devi PA-C COLON CANCER ICD-V16.0 Inactive Jose Zhong MD [...] Influenza Vaccination for Prophylaxis ICD-V04.81 5 Inactive KELLIE Summers [facility] BREAST CANCER ICD-V16.3 Inactive Jose Marcelo Medication List Medication Instructions Start Date Stop Date Generic Name NDC Status Provider Patient Instruction DIFLUCAN 100 MG ORAL TABLET 1 tablet by mouth daily, R EPEAT 2ND DOSE IN 7 DAYS IF STILL SYMPTOMATIC FLUCONAZOLE [id number] No Long er Active Nilam Weber Active KEFLEX 500 MG ORAL CAPSULE 1 po tid CEPHALEXI N 24141193204 No Longer Active Tali Devi PA-C Active CONCEPT DHA 53.5-38-1 MG ORAL CAPSULE 1 tablet daily [id number] 3 49166435735 Active Oxana Souza LPN Active PROTONIX 40 MG ORAL TABLET DELAYED RELEASE 1 pill by m outh daily, for acid reflux PANTOPRAZOLE SODIUM 08045314337 Active Roseann Crawford Active AMOXICILLIN 875 MG ORAL TABLET 1 tab by mouth twice daily 1 AMOXICILLIN 76649832093 No Longer Active Brii Russ APRN Active ALPRAZOLAM 0.25 MG ORAL TABLET 1 tablet by mouth twice a day as needed for stress/anxiety ALPRAZOLAM 16900542469 Active KELILE Escobar Active ESCITALOPRAM OXALATE 10 MG ORAL TABLET take 1 tab po qhs for mod 20 10/04/18 ESCITALOPRAM OXALATE 89351358448 Active Arie Casper MD Active TUSSIONEX PENNKINETIC ER 10-8 MG/5ML ORAL SUSPENSION E XTENDED RELEASE 5ml po q12hr PRN Cough HYDROCOD POLST-CHLORPHEN POLST 5 2716428025 No Longer Active Myrna Roberto MD Active ZITHROMAX Z-EMIL 250 MG TABS Take two tablets today and then 1 tablet daily for 4 days AZITHROMYCIN 77461264014 No Longer Active Flaco Rosales MD Active GUAIFENESIN DM 400-20 MG ORAL TABLET 1 pill by mouth t wice daily, if needed for cough DEXTROMETHORPHAN-GUAIFENESIN 47072130529 No Longer Active Rich Rosales MD Active CEFDINIR 300 MG ORAL CAPSULE 1 po BID x 10 days CEFDINIR 20809786952 No Longer Active Jessica Heaton APRN Active CHERATUSSIN AC 100-10 MG/5ML ORAL SYRUP 1 tsp by mouth every 4 hours as needed for cough GUAIFENESIN-CODEINE 31862526268 No Longe r Active Jessica Heaton APRN Active TAMIFLU 75 MG ORAL CAPSULE 1 po BID x 5 days 0 OSELTAMIVIR PHOSPHATE 37464626798 No Longer Active Jose Zhong MD Activ e ZITHROMAX Z-EMIL 250 MG ORAL TABLET 2 today, then 1 daily for 4 d ays AZITHROMYCIN 32679963572 No Longer Active Arie Casper MD Active PROTONIX 40 MG ORAL TABLET DELAYED RELEASE 1 po q a.m. PANTOPRAZOLE SODIUM 90877876448 No Longer Active Arie Casper MD Active BACTRIM DS 800-160 MG ORAL TABLET 1 tab by mouth twice daily 201 05/02/30 TRIMETHOPRIM-SULFAMETHOXAZOLE 55065196587 No Longer Active R [facility] Ty Active NEXPLANON IMPLANT right arm subcutaneously ETONOGESTREL IMPL 72946826674 No Longer Active Brii Russ APRN Active TUSSIONEX PENNKINETIC ER 10-8 MG/5ML ORAL SUSPENSION E XTENDED RELEASE 5ml po q12hr PRN Cough HYDROCOD POLST-CHLORPHEN POLST 5 8529664206 No Longer Active Brii Russ APRN Active CETIRIZINE HCL 10 MG ORAL TABLET 1 po qd PRN Allergies CETIRIZINE HCL 60786970111 No Longer Active Brii Russ APRN Activ e PREDNISONE 20 MG ORAL TABLET 2 tabs daily for 3 days, 1 tab daily for 3 days, 1/2 tab daily for 2 days PREDNISONE 25684265002 No Longer Active Arie Casper MD Active LOMOTIL 2.5-0.025 MG ORAL TABLET 1 tab po four times a day as needed for diarrhea DIPHENOXYLATE-ATROPINE 81475135926 No Lo nger Active Arie Casper MD Active ZOLOFT 50 MG ORAL TABLET 1 tablet by mouth daily 12/08 SERTRALINE HCL 48741997885 No Longer Active Arie Casper MD Ac tive NAPROXEN 500 MG ORAL TABLET Take 1 tab BID NAPR OXEN 17054496906 No Longer Active Arie Casper MD Active CEFDINIR 300 MG ORAL CAPSULE 1 po BID x 10 days CEFDINIR 48246990599 No Longer Active Brii Russ APRN Active PREDNISONE 20 MG ORAL TABLET 1 tablet daily for airway inflammat ion PREDNISONE 64553818635 No Longer Active Brii Russ APRN A ctive CEFDINIR 300 MG ORAL CAPSULE 1 po BID x 10 days CEFDINIR 78756051310 No Longer Active Jono Gagnon DO Active FLONASE 50 MCG/ACT NASAL SUSPENSION 1 spray each nostr il twice daily for allergies and runny nose until gone FLUT ICASONE PROPIONATE 57796534762 No Longer Active Jono Gagnon DO Active ALPRAZOLAM 0.25 MG ORAL TABLET 1 tablet by mouth every 8 hours as needed for stress ALPRAZOLAM 37739531939 No Longer Active Jono Gagnon DO Active ZITHROMAX Z-EMIL 250 MG ORAL TABLET 2 today, then 1 daily for 4 d ays AZITHROMYCIN 10210972092 No Longer Active Arie Casper MD Active PREDNISONE 20 MG ORAL TABLET 2 tabs daily for 3 days, 1 tab daily for 3 days, 1/2 tab daily for 2 days PREDNISONE 41784614040 No Longer Active Brii Russ APRN Active PREDNISONE 20 MG ORAL TABLET 1 tablet twice daily for 2 days, then 1 tablet once daily for 2 days PREDNISONE 90876018742 No Longer Active Brii Russ APRN Active PROMETHAZINE HCL 12.5 MG ORAL TABLET 1 tablet by mouth every 6 hours as needed for nausea/vomiting PROMETHAZINE HCL 90083779028 No L onger Active Jono Gagnon DO Active CITRATE OF MAGNESIA ORAL SOLUTION 1 bottle today for constipatio n MAGNESIUM CITRATE 97704381603 No Longer Active Jono Gagnon DO Active ZOFRAN 4 MG ORAL TABLET 1 TAB PO Q 6 HRS PRN NAUSEA 07/10/15 ONDANSETRON HCL 14661467645 No Longer Active Brii Russ APRN Acti ve LOMOTIL 2.5-0.025 MG ORAL TABLET 1 to 2 four times a day as needed for diarrhea DIPHENOXYLATE-ATROPINE 91004424645 No Longer Active January Russ APRN Active AMOXICILLIN 500 MG ORAL TABLET 2 tabs twice a day for 10 days 20 07/09/11 AMOXICILLIN 14810517379 No Longer Active Brii Russ APRN Active CYCLOBENZAPRINE HCL 10 MG ORAL TABLET 1/2 - 1 tablet b y mouth three times daily as needed for muscle spasm/pain CYCLOBENZAPRINE HCL 45400368750 No Longer Active Arie Casper MD Active LOMOTIL 2.5-0.025 MG ORAL TABLET 1 to 2 four times a day as needed for diarrhea DIPHENOXYLATE-ATROPINE 91511013669 No Longer Active Fozia Casper MD Active MACROBID 100 MG ORAL CAPSULE 1 cap by mouth twice daily NITROFURANTOIN MONOHYD MACRO 44091742462 No Longer Active Arie Casper MD Active ZYRTEC ALLERGY 10 MG ORAL CAPSULE 1 po qd CE TIRIZINE HCL 87021413357 No Longer Active Arie Casper MD Active AZITHROMYCIN 250 MG ORAL TABLET 2 po qd x 1 day, then 1 po q d x 4 days AZITHROMYCIN 55221983754 No Longer Active Jillarlen salgado PET CARE ATTENDANT Active PREDNISONE 20 MG ORAL TABLET 2 tabs daily for 3 days, 1 tab daily for 3 days, 1/2 tab daily for 2 days PREDNISONE 05119554795 No Longer Active Jillarlen Heaton PET CARE ATTENDANT Active PROMETHAZINE HCL 25 MG ORAL TABLET 1 four times a day as nee ded for vomiting PROMETHAZINE HCL 31513807767 No Longer Active Myrna Roberto MD Active BACTRIM DS 800-160 MG ORAL TABLET 1 twice a day 05/30 SULFAMETHOXAZOLE-TRIMETHOPRIM 44534043341 No Longer Active Myrna Roberto MD Active VICKS DAYQUIL SEVERE COLD/FLU TABLET 1 tab every 6 hours prn 201 02/22/17 [id number] TABS 47008702635 No Longer Active Chris Roberto MD Active GUAIFENESIN-CODEINE 100-10 MG/5ML ORAL SYRUP 2 tsp every 6 hours prn GUAIFENESIN-CODEINE 32305795819 No Longer Active Myrna Roberto MD Active NAPROXEN 500 MG ORAL TABLET one tab PO BID NAPR OXEN 76008406504 No Longer Active Myrna Roberto MD Active AUGMENTIN 875-125 MG ORAL TABLET 1 tab by mouth twice daily with food AMOXICILLIN-POT CLAVULANATE 83922851517 No Longer Act zaid Liliana Estrada MD PhD Active AMOXICILLIN 500 MG ORAL CAPSULE 1 tab by mouth 3 times daily 201 02/21/05 AMOXICILLIN 10601651398 No Longer Active Liliana Estrada MD PhD Active TESSALON PERLES 100 MG ORAL CAPSULE 1 tablet by mouth 3 times da cory BENZONATATE 76585385482 No Longer Active Liliana Estrada MD PhD Active FLAGYL 500 MG ORAL TABLET 1 tablet by mouth two times daily 2014 METRONIDAZOLE 21470780100 No Longer Active Nilam Gus Ac tive ZITHROMAX 250 MG ORAL TABLET 2 po today, then 1 po q days 2-5 20 06/08/16 AZITHROMYCIN 19834463644 No Longer Active Arie Casper MD Active VITAMINS 0.8 MG ORAL TABLET take 1 tab po qday [id number] 28257764951 No Longer Active Arie Casper MD Active IBUPROFEN 800 MG ORAL TABLET take one po Q 8 hours 201 02/01/16 IBUPROFEN 64069947804 No Longer Active Arie Casper MD Acti ve [facility] TUSSIN COUGH/COLD CF 5-10-100 MG/5ML ORAL LIQUID 2 teasp oons every 4 hours [id number] 15197662381 No Longer Active Blaine Casper MD Active COMTREX COLD/COUGH DAY/NITE MS 5-2-10-325 MG ORAL 2 caps deja ry 4 hours [id number]-APAP 89853006557 No Longer Active Da aleksandra Casper MD Active CHLORASEPTIC MAX SORE THROAT 15-10 MG MOUTH/THROAT LOZENGE 1 every 2 hours prn BENZOCAINE-MENTHOL 65441925809 No Longer Active Arie Casper MD Active PREDNISONE 20 MG ORAL TABLET 2 tabs daily for 3 days, 1 tab daily for 3 days, 1/2 tab daily for 2 days PREDNISONE 63731126823 No Longer Active Jose Zhong MD Active AZITHROMYCIN 250 MG ORAL TABLET 2 po qd x 1 day, then 1 po q d x 4 days AZITHROMYCIN 76157172601 No Longer Active Jose Mcwilliams MD Active ZOFRAN ODT 4 MG ORAL TABLET DISINTEGRATING 1 po q6hr PRN Nausea ONDANSETRON 66511878675 No Longer Active Rich Rosales MD Active ZOFRAN 4 MG ORAL TABLET 1 tablet every 4 hours ONDANSETRON HCL 55498695899 No Longer Active Rich Rosales MD Activ e MUCINEX 600 MG ORAL TABLET EXTENDED RELEASE 12 HOUR Ta ke 1-2 tablets every 12 hours GUAIFENESIN 56936057183 No Longer Active Rich Rosales MD Active BACTRIM 400-80 MG ORAL TABLET take one po BID SULFAMETHOXAZOLE-TRIMETHOPRIM 82138794991 No Longer Active Abelardo HERNANDEZ Active AZITHROMYCIN 500 MG ORAL TABLET 1 PO q day x 6 days 20 03/02/23 AZITHROMYCIN 29439787563 No Longer Active Tin HERNANDEZ Activ e ZITHROMAX 250 MG ORAL TABLET 2 po today, then 1 po q days 2-5 20 10/03/08 AZITHROMYCIN 22913654778 No Longer Active Arie Casper MD Active ZITHROMAX 250 MG ORAL TABLET 2 po today, then 1 po q days 2-5 20 09/23/25 AZITHROMYCIN 53912161685 No Longer Active Arie Casper MD Active AMOXICILLIN 500 MG ORAL CAPSULE 1 tab by mouth 3 times daily 201 11/24/09 AMOXICILLIN 79705705425 No Longer Active Arie Casper MD Active BACTRIM DS 800-160 MG ORAL TABLET 1 tab by mouth twice daily 201 11/03/14 TRIMETHOPRIM-SULFAMETHOXAZOLE 02370743200 No Longer Active Fozia Casper MD Active AMOXICILLIN 500 MG ORAL TABLET take 1 tab po TID 08/05 AMOXICILLIN 33099371501 No Longer Active Arie Casper MD Acti ve BACTRIM DS 800-160 MG ORAL TABLET 1 tab by mouth twice daily 201 11/03/14 BACTRIM DS 800-160 MG ORAL TABLET 285869 TRIMETHOPRIM-SULFAMETHOXAZOLE Inactive MUCINEX 600 MG ORAL TABLET EXTENDED RELEASE 12 HOUR Ta ke 1-2 tablets every 12 hours MUCINEX 600 MG ORAL TABLET EXTENDED RELEA SE 12 HOUR GUAIFENESIN Inactive ZOFRAN 4 MG ORAL TABLET 1 tablet every 4 hours ZOFRAN 4 MG ORAL TABLET 289400 ONDANSETRON HCL Inactive ZOFRAN ODT 4 MG [...] COLD/COUGH DAY/NITE MS 5-2-10-325 MG ORA L [id number] Inactive [facility] TUSSIN COUGH/COLD CF 5-10-100 MG/5ML ORAL LIQUID 2 teasp oons every 4 hours [facility] TUSSIN COUGH/COLD CF 5-10-100 MG/5ML ORAL LI QUID [id number] Inactive IBUPROFEN 800 MG ORAL TABLET take one po Q 8 hours 201 02/01/16 IBUPROFEN 800 MG ORAL TABLET IBUPROFEN Inactive VITAMINS 0.8 MG ORAL TABLET take 1 tab po qday VITAMINS 0.8 MG ORAL TABLET [id number] E-FA Inactive TESSALON PERLES 100 MG ORAL CAPSULE 1 tablet by mouth 3 times da cory TESSALON PERLES 100 MG ORAL CAPSULE 061984 BENZONATATE Inactive AMOXICILLIN 500 MG ORAL CAPSULE 1 tab by mouth 3 times daily 201 02/21/05 AMOXICILLIN 500 MG ORAL CAPSULE 719062 AMOXICILLIN Inactive GUAIFENESIN-CODEINE 100-10 MG/5ML ORAL SYRUP 2 tsp every 6 hours prn GUAIFENESIN-CODEINE 100-10 MG/5ML ORAL SYRUP 036070 GUAIFENESIN-CODEINE Inactive VICKS DAYQUIL SEVERE COLD/FLU TABLET 1 tab every 6 hours prn 201 02/22/17 VICKS DAYQUIL SEVERE COLD/FLU TABLET PHENYLEPHRI [id number]-APAP TABS Inactive BACTRIM DS 800-160 MG ORAL TABLET 1 twice a day 05/30 BACTRIM DS 800-160 MG ORAL TABLET 195136 SULFAMETHOXAZOLE-TRIMETHOPRIM Inactiv e PROMETHAZINE HCL 25 MG ORAL TABLET 1 four times a day as nee ded for vomiting PROMETHAZINE HCL 25 MG ORAL TABLET 415300 PROMETHAZINE HCL Inactive ZYRTEC ALLERGY 10 MG ORAL CAPSULE 1 po qd ZYRTEC ALLERGY 10 MG ORAL CAPSULE CETIRIZINE HCL Inactive MACROBID 100 MG ORAL CAPSULE 1 cap by mouth twice daily MACROBID 100 MG ORAL CAPSULE 6618872 NITROFURANTOIN MONOHYD MACRO In active LOMOTIL 2.5-0.025 MG ORAL TABLET 1 to 2 four times a day as needed for diarrhea LOMOTIL 2.5-0.025 MG ORAL TABLET 6902480 DIPHENOXYLATE-ATROPINE Inactive CYCLOBENZAPRINE HCL 10 MG ORAL TABLET 1/2 - 1 tablet b y mouth three times daily as needed for muscle spasm/pain CYCLOBEN ZAPRINE HCL 10 MG ORAL TABLET 490846 CYCLOBENZAPRINE HCL Inactive AMOXICILLIN 500 MG ORAL TABLET 2 tabs twice a day for 10 days 20 07/09/11 AMOXICILLIN 500 MG ORAL TABLET 565214 AMOXICILLIN I nactive LOMOTIL 2.5-0.025 MG ORAL TABLET 1 to 2 four times a day as needed for diarrhea LOMOTIL 2.5-0.025 MG ORAL TABLET 4160580 DIPHENOXYLATE-ATROPINE Inactive ZOFRAN 4 MG ORAL TABLET 1 TAB PO Q 6 HRS PRN NAUSEA 20 07/10/15 ZOFRAN 4 MG ORAL TABLET 111627 ONDANSETRON HCL Inactive CITRATE OF MAGNESIA ORAL SOLUTION 1 bottle today for constipatio n CITRATE OF MAGNESIA ORAL SOLUTION 5473040 MAGNESIUM CITR ATE Inactive PROMETHAZINE HCL 12.5 MG ORAL TABLET 1 tablet by mouth every 6 hours as needed for nausea/vomiting PROMETHAZINE HCL 12.5 MG ORA L TABLET 858286 PROMETHAZINE HCL Inactive PREDNISONE 20 MG ORAL TABLET 1 tablet twice daily for 2 days, then 1 tablet once daily for 2 days PREDNISONE 20 MG ORAL TABLET 326091 PREDNISONE Inactive ALPRAZOLAM 0.25 MG ORAL TABLET 1 tablet by mouth every 8 hours as needed for stress ALPRAZOLAM 0.25 MG ORAL TABLET 308046 ALPRA ZOLAM Inactive FLONASE 50 MCG/ACT NASAL SUSPENSION 1 spray each nostr il twice daily for allergies and runny nose until gone FLON ASE 50 MCG/ACT NASAL SUSPENSION 6465310 FLUTICASONE PROPIONATE Inactive PREDNISONE 20 MG ORAL TABLET 1 tablet daily for airway inflammat ion PREDNISONE 20 MG ORAL TABLET 998771 PREDNISONE [place] ctive NAPROXEN 500 MG ORAL TABLET Take 1 tab BID NAPROXEN 500 MG ORAL TABLET 348117 NAPROXEN Inactive ZOLOFT 50 MG ORAL TABLET 1 tablet by mouth daily 12/08 ZOLOFT 50 MG ORAL TABLET 074019 SERTRALINE HCL Inactive LOMOTIL 2.5-0.025 MG ORAL TABLET 1 tab po four times a day as needed for diarrhea LOMOTIL 2.5-0.025 MG ORAL TABLET 5039242 DIPHENOXYLATE-ATROPINE Inactive CETIRIZINE HCL 10 MG ORAL TABLET 1 po qd PRN Allergies CETIRIZINE HCL 10 MG ORAL TABLET 6421364 CETIRIZINE HCL Inactiv e TUSSIONEX PENNKINETIC ER 10-8 MG/5ML ORAL SUSPENSION E XTENDED RELEASE 5ml po q12hr PRN Cough TUSSIONEX PENNKINETI C ER 10-8 MG/5ML ORAL SUSPENSION EXTENDED RELEASE HYDROCOD POLST-CHLORPHEN POLST I nactive NEXPLANON IMPLANT right arm subcutaneously NEXPLANON IMPLANT ETONOGESTREL IMPL Inactive PROTONIX 40 MG ORAL TABLET DELAYED RELEASE 1 po q a.m. PROTONIX 40 MG ORAL TABLET DELAYED RELEASE 631529 PANTOPRAZOLE SODI UM Inactive CHERATUSSIN AC 100-10 MG/5ML ORAL SYRUP 1 tsp by mouth every 4 hours as needed for cough CHERATUSSIN AC 100-10 MG/5ML ORAL SYRUP 9 99279 GUAIFENESIN-CODEINE Inactive GUAIFENESIN DM 400-20 MG ORAL [...] tid K EFLEX 500 MG ORAL CAPSULE 814865 CEPHALEXIN Inactive DIFLUCAN 100 MG ORAL TABLET 1 tablet by mouth daily, R EPEAT 2ND DOSE IN 7 DAYS IF STILL SYMPTOMATIC DIFLUCAN 100 MG ORAL TABLET 88181 8 FLUCONAZOLE Inactive AMOXICILLIN 500 MG ORAL TABLET take 1 tab po TID 08/05 AMOXICILLIN 500 MG ORAL TABLET 174804 AMOXICILLIN Inactive AMOXICILLIN 500 MG ORAL CAPSULE 1 tab by mouth 3 times daily 201 11/24/09 AMOXICILLIN 500 MG ORAL CAPSULE 570588 AMOXICILLIN Inactive ZITHROMAX 250 MG ORAL TABLET 2 po today, then 1 po q days 2-5 20 09/23/25 ZITHROMAX 250 MG ORAL TABLET 685755 AZITHROMYCIN [place] ctive ZITHROMAX 250 MG ORAL TABLET 2 po today, then 1 po q days 2-5 20 10/03/08 ZITHROMAX 250 MG ORAL TABLET 213934 AZITHROMYCIN [place] ctive AZITHROMYCIN 500 MG ORAL TABLET 1 PO q day x 6 days 20 03/02/23 AZITHROMYCIN 500 MG ORAL TABLET 6485111 AZITHROMYCIN Inactive BACTRIM 400-80 MG ORAL TABLET take one po BID BACTRIM 400- 80 MG ORAL TABLET 981715 SULFAMETHOXAZOLE-TRIMETHOPRIM Inactive AZITHROMYCIN 250 MG ORAL TABLET 2 po qd x 1 day, then 1 po q d x 4 days AZITHROMYCIN 250 MG ORAL TABLET 581095 AZITHROMY ALLISON Inactive PREDNISONE 20 MG ORAL TABLET 2 tabs daily for 3 days, 1 tab daily for 3 days, 1/2 tab daily for 2 days PREDNISONE 20 MG ORAL T ABLET 920182 PREDNISONE Inactive ZITHROMAX 250 MG ORAL TABLET 2 po today, then 1 po q days 2-5 20 06/08/16 ZITHROMAX 250 MG ORAL TABLET 689765 AZITHROMYCIN [place] ctive FLAGYL 500 MG ORAL TABLET 1 tablet by mouth two times daily 2014 FLAGYL 500 MG ORAL TABLET 796753 METRONIDAZOLE Inacti ve AUGMENTIN 875-125 MG ORAL TABLET 1 tab by mouth twice daily with food AUGMENTIN 875-125 MG ORAL TABLET 751723 AMOXICIL ELSA-POT CLAVULANATE Inactive NAPROXEN 500 MG ORAL TABLET one tab PO BID NAPROXEN 500 MG ORAL TABLET 782621 NAPROXEN Inactive PREDNISONE 20 MG ORAL TABLET 2 tabs daily for 3 days, 1 tab daily for 3 days, 1/2 tab daily for 2 days PREDNISONE 20 MG ORAL T ABLET 485517 PREDNISONE Inactive AZITHROMYCIN 250 MG ORAL TABLET 2 po qd x 1 day, then 1 po q d x 4 days AZITHROMYCIN 250 MG ORAL TABLET 328613 AZITHROMY ALLISON Inactive PREDNISONE 20 MG ORAL TABLET 2 tabs daily for 3 days, 1 tab daily for 3 days, 1/2 tab daily for 2 days PREDNISONE 20 MG ORAL T ABLET 164387 PREDNISONE Inactive ZITHROMAX Z-EMIL 250 MG ORAL TABLET 2 today, then 1 daily for 4 d ays ZITHROMAX Z-EMIL 250 MG ORAL TABLET 594630 AZITHROMYCIN Inactive CEFDINIR 300 MG ORAL CAPSULE 1 po BID x 10 days 12/18 CEFDINIR 300 MG ORAL CAPSULE 530874 CEFDINIR Inactive CEFDINIR 300 MG ORAL CAPSULE 1 po BID x 10 days CEFDINIR 300 MG ORAL CAPSULE 840404 CEFDINIR Inactive PREDNISONE 20 MG ORAL TABLET 2 tabs daily for 3 days, 1 tab daily for 3 days, 1/2 tab daily for 2 days PREDNISONE 20 MG ORAL T ABLET 241539 PREDNISONE Inactive BACTRIM DS 800-160 MG ORAL TABLET 1 tab by mouth twice daily 201 05/02/30 BACTRIM DS 800-160 MG ORAL TABLET 316189 TRIMETHOPRIM-SULFAMETHOXAZOLE Inactive ZITHROMAX Z-EMIL 250 MG ORAL TABLET 2 today, then 1 daily for 4 d ays ZITHROMAX Z-EMIL 250 MG ORAL TABLET 897300 AZITHROMYCIN Inactive TAMIFLU 75 MG ORAL CAPSULE 1 po BID x 5 days 0 TAMIFLU 75 MG ORAL CAPSULE 007443 OSELTAMIVIR PHOSPHATE Inactive CEFDINIR 300 MG ORAL CAPSULE 1 po BID x 10 days 01/03 CEFDINIR 300 MG ORAL CAPSULE 020094 CEFDINIR Inactive ZITHROMAX Z-EMIL 250 MG TABS Take two tablets today and then 1 tablet daily for 4 days ZITHROMAX Z-EMIL 250 MG TABS 030137 AZITHROM YCIN Inactive AMOXICILLIN 875 MG ORAL TABLET 1 tab by mouth twice daily 1 AMOXICILLIN 875 MG ORAL TABLET 147763 AMOXICILLIN Inactive Advance Directives Directive Description Start [...] 0.2 Encounters Code Encounter Date Provider Facility [facility]-51333 [id number] Vst-Est Level IV 13:45:[address] Tali Devi PA-C [facility]-18380 [id number] Vst-Est Level III 09:41:31 CDT Arie Casper MD [facility]-29742 [id number] Vst-Est Level III 18:20:11 [facility] 96308-Lor Vst-Est Level III 17:21:41 CDT [facility]37733 [id number] Vst-Est Level IV 13:30:22 C NIC Casper MD [facility]-18047 Level 4 Est. Patient 13:05:26 CDT Myrna maldonado MD [facility]-76576 14607-Ecm Vst-Est Level IV 20:50:21 C NIC Casper MD [facility]-50947 Level 3 Est. Patient 11:49:34 SKIP TENDER Jessica boyd [facility]-64047 Level 3 Est. Patient 14:55:50 SKIP TENDER Jose Zhong MD [facility] CPT-84170 Level 3 Est. Patient 10:21:41 SKIP TENDER Arie mcqueen MD [facility] CPT-53124 Level 3 Est. Patient 11:35:15 SKIP TENDER Arie mcqueen MD [facility] CPT-65226 Level 3 Est. Patient 15:40:28 CDT Brii Are ll [facility] CPT-90754 Level 3 Est. Patient 16:40:36 CDT Arie mcqueen MD [facility] CPT-04496 Level 4 Est. Patient 15:29:22 SKIP TENDER Arie mcqueen MD [facility] CPT-26953 Level 3 Est. Patient 15:18:16 SKIP TENDER Jono black [facility] CPT-85987 Level 4 Est. Patient 12:08:40 SKIP TENDER Brii Are ll [facility] CPT-61732 Level 3 Est. Patient 09:24:42 CDT Brii Are ll [facility] CPT-12080 Level 3 Est. Patient 09:12:56 CDT Arie mcqueen MD [facility] CPT-92389 Level 3 Est. Patient 16:40:54 CDT Jose Zhong MD [facility] CPT-40110 Level 2 Est. Patient 13:01:13 CDT Brii Are ll [facility] CPT-29569 Level 3 Est. Patient 11:55:30 SKIP TENDER Jono black [facility] CPT-41013 Level 3 Est. Patient 09:52:36 SKIP TENDER Brii Are ll [facility] CPT-03579 Level 3 Est. Patient 16:25:33 SKIP TENDER Rich Rosales MD [facility] CPT-38937 Level 3 Est. Patient 20:33:55 CDT Arie mcqueen MD [facility] CPT-19236 Level 3 Est. Patient 14:18:20 CDT Rich Rosales MD [facility] CPT-38081 Level 4 Est. Patient 09:34:31 CDT Arie mcqueen MD [facility] CPT-76275 Level 3 Est. Patient 09:08:55 SKIP TENDER Liliana vincent MD [facility] CPT-04811 Level 3 Est. Patient 16:44:07 SKIP TENDER Arie mcqueen MD [facility] CPT-15419 Level 3 Est. Patient 10:44:27 CDT Arie mcqueen MD [facility] CPT-87189 Level 3 Est. Patient 08:55:41 CDT Jose Zhong MD [facility] CPT-12352 Level 3 Est. Patient 18:37:31 CDT Liliana vincent MD [facility] CPT-63492 Level 3 Est. Patient 14:28:23 CDT Abelardo HERNANDEZ [facility] CPT-30536 Level 3 Est. Patient 15:18:13 SKIP TENDER Arie mcqueen MD [facility] CPT-65318 Level 3 Est. Patient 10:11:29 SKIP TENDER Arie mcqueen MD [facility] CPT-02855 Level 3 Est. Patient 10:55:57 SKIP TENDER Jono black DO [facility] CPT-54507 Level 3 Est. Patient 17:29:05 CDT Arie mcqueen MD [facility] Procedures Code Procedure Name Date Entry Date Standard Desc ription CPT-63549 First Vx - Ix admin via ID I M or jet injects without counseling by physician 13:00:15 SKIP TENDER CPT-08162 Flulaval Intramuscular Injectable 13:00:15 SKIP TENDER CPT-50474 Urine Dip (Floor Use Only) 12:20:20 SKIP TENDER 201 06/03/24 CPT-06570 Sono Soft Tissue Head and Neck - XRAY US E ONLY 17:10:14 CDT CPT-00537 Ear Wash with irrigation 17:21:41 CDT 07/04 CPT-67259 Nexplanon Removal 15:40:28 CDT CPT-67057 Sono transvag pelvis non OB uterus ovari es cervix - XRAY USE ONLY 08:58:14 SKIP TENDER CPT-45242 UA w micro - LAB USE ONLY 16:04:56 SKIP TENDER 2015 CPT-22006 Wet Prep/GEN - LAB USE ONLY 16:04:56 SKIP TENDER 20 08/10/29 CPT-52381 First Vx - Ix admin via ID I M or jet injects without counseling by physician 16:57:10 CDT CPT-90985 Fluzone Preservative Free Intramuscular Suspension 16:57:10 CDT CPT-J0696 Rocephin 1000 mg (Ceftriaxone) 11:49:23 CDT CPT-J1040 Depo Medrol 80 mg (Methyl Prednisolone A cetate) 11:49:23 CDT CPT-J1100 Decadron 8mg (Dexamethasone) 11:49:23 CDT 2 CPT-61195 Abx/Therapy Injection 11:49:23 CDT CPT-63577 Abx/Therapy Injection 11:49:23 CDT CPT-89398 Abd compl w upright 09:07:26 SKIP TENDER CPT-66850 Ear Wash 16:12:47 SKIP TENDER CPT-OV Office Visit 11:12:01 CDT CPT-OV Office Visit 15:30:23 CDT CPT-97223 Sono pelvis non OB uterus ovaries cervix 15:50:44 CDT CPT-50133 Hand comp min 3V 16:42:32 CDT CPT-70946 Abd compl w upright 12:17:01 CDT CPT-22785 Nexplanon Placement 15:07:39 SKIP TENDER CPT-03380 Removal of IUD 15:07:39 SKIP TENDER CPT-26805 TB Tubersol 12:09:32 CDT CPT-87005 TB Tubersol 13:55:43 CDT
--- OUTSIDE RECORDS SUMMARY | 2020-03-03 07:05 | XMS REPORT | Clinical Summary ---
Author Author Admin, Diamante Marcelo Organization [facility] Address Unknown Phone Unavailable Allergies, Adverse Reactions, [...] respiratory manifestations Sinusitis 473.9 Active Jessica Heaton [employer] Unspecified sinusitis (chronic) Other mixed anxiety 300.00 [...] Cerumen impaction, bilateral 380.4 Active Brii Russ [employer] Impacted cerumen Tonsillar enlargement 474.11 Active Brii Russ APRN Hypertrophy of tonsils alone Influenza Vaccination for Prophylaxis V04.81 Inactive Brii Russ [employer] Need for prophylactic vaccin ation and inoculation against influenza Submandibular lymph node 785.6 Active Brii Are ll SEC[employer] B[employer]ER Enlargement of lymph nodes Influenza Vaccination for Prophylaxis V04.81 Inactive Arie Casper MD Need for prophylactic vaccin ation and inoculation against influenza Influenza Vaccination for Prophylaxis V04.81 Inactive Tali Devi PA-C Need for prophylactic vaccin ation and inoculation against influenza Dysuria 788.1 Active Tali LOC Dysuria Pelvic pain, acute 789.09 Active Tali [...] IN 7 DAYS IF STILL SYMPTOMATIC FLUCONAZOLE 52345607084 Active Nayana Devi PA-C Active KEFLEX 500 MG ORAL CAPSULE 1 po tid CEPHALEXI N 32438817629 No Longer Active Tali Devi PA-C Active CONCEPT DHA 53.5-38-1 MG ORAL CAPSULE 1 tablet daily [id number] 3 25184284679 Active Oxana Souza LPN Active PROTONIX 40 MG ORAL TABLET DELAYED RELEASE 1 pill by m outh daily, for acid reflux PANTOPRAZOLE SODIUM 39795334797 Active Roseann Crawford Active AMOXICILLIN 875 MG ORAL TABLET 1 tab by mouth twice daily 1 AMOXICILLIN 83103055681 No Longer Active Brii Russ APRN Active ALPRAZOLAM 0.25 MG ORAL TABLET 1 tablet by mouth twice a day as needed for stress/anxiety ALPRAZOLAM 30799377189 Active KELLIE Escobar Active ESCITALOPRAM OXALATE 10 MG ORAL TABLET take 1 tab po qhs for mod 20 10/04/18 ESCITALOPRAM OXALATE 27614710790 Active Arie Casper MD Active TUSSIONEX PENNKINETIC ER 10-8 MG/5ML ORAL SUSPENSION E XTENDED RELEASE 5ml po q12hr PRN Cough HYDROCOD POLST-CHLORPHEN POLST 5 5376219845 No Longer Active Myrna Roberto MD Active ZITHROMAX Z-EMIL 250 MG TABS Take two tablets today and then 1 tablet daily for 4 days AZITHROMYCIN 36080671235 No Longer Active Flaco Rosales MD Active GUAIFENESIN DM 400-20 MG ORAL TABLET 1 pill by mouth t wice daily, if needed for cough DEXTROMETHORPHAN-GUAIFENESIN 17152328421 No Longer Active Rich Rosales MD Active CEFDINIR 300 MG ORAL CAPSULE 1 po BID x 10 days CEFDINIR 06452563428 No Longer Active Jillarlen Heaton APRN Active CHERATUSSIN AC 100-10 MG/5ML ORAL SYRUP 1 tsp by mouth every 4 hours as needed for cough GUAIFENESIN-CODEINE 75973023123 No Longe r Active Waynellina Florina [employer]ER Active TAMIFLU 75 MG ORAL CAPSULE 1 po BID x 5 days 0 OSELTAMIVIR PHOSPHATE 81399934309 No Longer Active Jose Zhong MD Activ e ZITHROMAX Z-EMIL 250 MG ORAL TABLET 2 today, then 1 daily for 4 d ays AZITHROMYCIN 12269624049 No Longer Active Arie Casper MD Active PROTONIX 40 MG ORAL TABLET DELAYED RELEASE 1 po q a.m. PANTOPRAZOLE SODIUM 23591978974 No Longer Active Arie Casper MD Active BACTRIM DS 800-160 MG ORAL TABLET 1 tab by mouth twice daily 201 05/02/30 TRIMETHOPRIM-SULFAMETHOXAZOLE 08338397228 No Longer Active R [facility] Ty Active NEXPLANON IMPLANT right arm subcutaneously ETONOGESTREL IMPL 04410906316 No Longer Active Brii Russ APRN Active TUSSIONEX PENNKINETIC ER 10-8 MG/5ML ORAL SUSPENSION E XTENDED RELEASE 5ml po q12hr PRN Cough HYDROCOD POLST-CHLORPHEN POLST 5 5526984721 No Longer Active Brii Russ APRN Active CETIRIZINE HCL 10 MG ORAL TABLET 1 po qd PRN Allergies CETIRIZINE HCL 58710162100 No Longer Active Brii Russ APRN Activ e PREDNISONE 20 MG ORAL TABLET 2 tabs daily for 3 days, 1 tab daily for 3 days, 1/2 tab daily for 2 days PREDNISONE 34449419691 No Longer Active Arie Casper MD Active LOMOTIL 2.5-0.025 MG ORAL TABLET 1 tab po four times a day as needed for diarrhea DIPHENOXYLATE-ATROPINE 37755096483 No Lo nger Active Arie Casper MD Active ZOLOFT 50 MG ORAL TABLET 1 tablet by mouth daily 12/08 SERTRALINE HCL 43809081352 No Longer Active Arie Casper MD Ac tive NAPROXEN 500 MG ORAL TABLET Take 1 tab BID NAPR OXEN 80835128551 No Longer Active Arie Casper MD Active CEFDINIR 300 MG ORAL CAPSULE 1 po BID x 10 days CEFDINIR 45147110154 No Longer Active Brii Russ APRN Active PREDNISONE 20 MG ORAL TABLET 1 tablet daily for airway inflammat ion PREDNISONE 78971935072 No Longer Active Brii Russ APRN A ctive CEFDINIR 300 MG ORAL CAPSULE 1 po BID x 10 days CEFDINIR 01742475390 No Longer Active Jono Gagnon DO Active FLONASE 50 MCG/ACT NASAL SUSPENSION 1 spray each nostr il twice daily for allergies and runny nose until gone FLUT ICASONE PROPIONATE 75756537946 No Longer Active Jono Gagnon DO Active ALPRAZOLAM 0.25 MG ORAL TABLET 1 tablet by mouth every 8 hours as needed for stress ALPRAZOLAM 01234796560 No Longer Active Jono Gagnon DO Active ZITHROMAX Z-EMIL 250 MG ORAL TABLET 2 today, then 1 daily for 4 d ays AZITHROMYCIN 43526930949 No Longer Active Arie Casper MD Active PREDNISONE 20 MG ORAL TABLET 2 tabs daily for 3 days, 1 tab daily for 3 days, 1/2 tab daily for 2 days PREDNISONE 28080797276 No Longer Active Brii Russ APRN Active PREDNISONE 20 MG ORAL TABLET 1 tablet twice daily for 2 days, then 1 tablet once daily for 2 days PREDNISONE 54424609279 No Longer Active Brii Russ APRN Active PROMETHAZINE HCL 12.5 MG ORAL TABLET 1 tablet by mouth every 6 hours as needed for nausea/vomiting PROMETHAZINE HCL 78048532143 No L onger Active Jono Gagnon DO Active CITRATE OF MAGNESIA ORAL SOLUTION 1 bottle today for constipatio n MAGNESIUM CITRATE 37797752637 No Longer Active Jono Gagnon DO Active ZOFRAN 4 MG ORAL TABLET 1 TAB PO Q 6 HRS PRN NAUSEA 07/10/15 ONDANSETRON HCL 95237543470 No Longer Active Brii Russ APRN Acti ve LOMOTIL 2.5-0.025 MG ORAL TABLET 1 to 2 four times a day as needed for diarrhea DIPHENOXYLATE-ATROPINE 66770240407 No Longer Active January Russ APRN Active AMOXICILLIN 500 MG ORAL TABLET 2 tabs twice a day for 10 days 20 07/09/11 AMOXICILLIN 34753996393 No Longer Active Brii Russ APRN Active CYCLOBENZAPRINE HCL 10 MG ORAL TABLET 1/2 - 1 tablet b y mouth three times daily as needed for muscle spasm/pain CYCLOBENZAPRINE HCL 97466494415 No Longer Active Arie Casper MD Active LOMOTIL 2.5-0.025 MG ORAL TABLET 1 to 2 four times a day as needed for diarrhea DIPHENOXYLATE-ATROPINE 44884404037 No Longer Active Fozia Casper MD Active MACROBID 100 MG ORAL CAPSULE 1 cap by mouth twice daily NITROFURANTOIN MONOHYD MACRO 72364999028 No Longer Active Arie Casper MD Active ZYRTEC ALLERGY 10 MG ORAL CAPSULE 1 po qd CE TIRIZINE HCL 53613980677 No Longer Active Arie Casper MD Active AZITHROMYCIN 250 MG ORAL TABLET 2 po qd x 1 day, then 1 po q d x 4 days AZITHROMYCIN 80457601268 No Longer Active Jillina Fra naomi [employer]ER Active PREDNISONE 20 MG ORAL TABLET 2 tabs daily for 3 days, 1 tab daily for 3 days, 1/2 tab daily for 2 days PREDNISONE 49317491829 No Longer Active Jillina Fradeepl [employer] B[employer]ER Active PROMETHAZINE HCL 25 MG ORAL TABLET 1 four times a day as nee ded for vomiting PROMETHAZINE HCL 67233725258 No Longer Active Myrna Roberto MD Active BACTRIM DS 800-160 MG ORAL TABLET 1 twice a day 05/30 SULFAMETHOXAZOLE-TRIMETHOPRIM 05535891882 No Longer Active Myrna Roberto MD Active VICKS DAYQUIL SEVERE COLD/FLU TABLET 1 tab every 6 hours prn 201 02/22/17 [id number] TABS 13311506454 No Longer Active Chris Roberto MD Active GUAIFENESIN-CODEINE 100-10 MG/5ML ORAL SYRUP 2 tsp every 6 hours prn GUAIFENESIN-CODEINE 52610769844 No Longer Active Myrna Roberto MD Active NAPROXEN 500 MG ORAL TABLET one tab PO BID NAPR OXEN 47602161777 No Longer Active Myrna Roberto MD Active AUGMENTIN 875-125 MG ORAL TABLET 1 tab by mouth twice daily with food AMOXICILLIN-POT CLAVULANATE 21366005629 No Longer Act zaid Liliana Estrada MD PhD Active AMOXICILLIN 500 MG ORAL CAPSULE 1 tab by mouth 3 times daily 201 02/21/05 AMOXICILLIN 67613979699 No Longer Active Liliana Estrada MD PhD Active TESSALON PERLES 100 MG ORAL CAPSULE 1 tablet by mouth 3 times da cory BENZONATATE 82769211756 No Longer Active Liliana Estrada MD PhD Active FLAGYL 500 MG ORAL TABLET 1 tablet by mouth two times daily 2014 METRONIDAZOLE 69796919160 No Longer Active Nilam ida Ac tive ZITHROMAX 250 MG ORAL TABLET 2 po today, then 1 po q days 2-5 20 06/08/16 AZITHROMYCIN 23676422815 No Longer Active Arie Casper MD Active VITAMINS 0.8 MG ORAL TABLET take 1 tab po qday [id number] 65242727585 No Longer Active Arie Casper MD Active IBUPROFEN 800 MG ORAL TABLET take one po Q 8 hours 201 02/01/16 IBUPROFEN 20294632175 No Longer Active Arie Casper MD Acti ve [facility] TUSSIN COUGH/COLD CF 5-10-100 MG/5ML ORAL LIQUID 2 teasp oons every 4 hours [id number]-[id number]-DR 59317582978 No Longer Active Blaine Casper MD Active COMTREX COLD/COUGH DAY/NITE MS 5-2-10-325 MG ORAL 2 caps deja ry 4 hours [id number]-[id number]-RA-APAP 55867893823 No Longer Active Da aleksandra Casper MD Active CHLORASEPTIC MAX SORE THROAT 15-10 MG MOUTH/THROAT LOZENGE 1 every 2 hours prn BENZOCAINE-MENTHOL 18036627087 No Longer Active Arie Casper MD Active PREDNISONE 20 MG ORAL TABLET 2 tabs daily for 3 days, 1 tab daily for 3 days, 1/2 tab daily for 2 days PREDNISONE 07287409479 No Longer Active Jose Zhong MD Active AZITHROMYCIN 250 MG ORAL TABLET 2 po qd x 1 day, then 1 po q d x 4 days AZITHROMYCIN 01503469525 No Longer Active Jose Mcwilliams MD Active ZOFRAN ODT 4 MG ORAL TABLET DISINTEGRATING 1 po q6hr PRN Nausea ONDANSETRON 77446385105 No Longer Active Rich Rosales MD Active ZOFRAN 4 MG ORAL TABLET 1 tablet every 4 hours ONDANSETRON HCL 10822310657 No Longer Active Rich Rosales MD Activ e MUCINEX 600 MG ORAL TABLET EXTENDED RELEASE 12 HOUR Ta ke 1-2 tablets every 12 hours GUAIFENESIN 65917493592 No Longer Active Rich Rosales MD Active BACTRIM 400-80 MG ORAL TABLET take one po BID SULFAMETHOXAZOLE-TRIMETHOPRIM 76242771630 No Longer Active Abelardo HERNANDEZ Active AZITHROMYCIN 500 MG ORAL TABLET 1 PO q day x 6 days 20 03/02/23 AZITHROMYCIN 15931784056 No Longer Active Tin HERNANDEZ Activ e ZITHROMAX 250 MG ORAL TABLET 2 po today, then 1 po q days 2-5 20 10/03/08 AZITHROMYCIN 22302800135 No Longer Active Arie Casper MD Active ZITHROMAX 250 MG ORAL TABLET 2 po today, then 1 po q days 2-5 20 09/23/25 AZITHROMYCIN 34100918775 No Longer Active Arie Casper MD Active AMOXICILLIN 500 MG ORAL CAPSULE 1 tab by mouth 3 times daily 201 11/24/09 AMOXICILLIN 15056455932 No Longer Active Arie Casper MD Active BACTRIM DS 800-160 MG ORAL TABLET 1 tab by mouth twice daily 201 11/03/14 TRIMETHOPRIM-SULFAMETHOXAZOLE 61782534141 No Longer Active Fozia Casper MD Active AMOXICILLIN 500 MG ORAL TABLET take 1 tab po TID 08/05 AMOXICILLIN 33279793942 No Longer Active Arie Casper MD Acti [...] 4 hours ZOFRAN 4 MG ORAL TABLET 271307 ONDANSETRON HCL Inactive ZOFRAN ODT 4 MG [...] COLD/COUGH DAY/NITE MS 5-2-10-325 MG ORA L [id number] Inactive [facility] TUSSIN COUGH/COLD CF 5-10-100 MG/5ML ORAL LIQUID 2 teasp oons every 4 hours [facility] TUSSIN COUGH/COLD CF 5-10-100 MG/5ML ORAL LI QUID [id number] Inactive IBUPROFEN 800 MG ORAL TABLET take one po Q 8 hours 201 02/01/16 IBUPROFEN 800 MG ORAL TABLET IBUPROFEN Inactive VITAMINS 0.8 MG ORAL TABLET take 1 tab po qday VITAMINS 0.8 MG ORAL TABLET [id number] E-FA Inactive TESSALON PERLES 100 MG ORAL CAPSULE 1 tablet by mouth 3 times da cory TESSALON PERLES 100 MG ORAL CAPSULE 948874 BENZONATATE Inactive AMOXICILLIN 500 MG ORAL CAPSULE 1 tab by mouth 3 times daily 201 02/21/05 AMOXICILLIN 500 MG ORAL CAPSULE 814405 AMOXICILLIN Inactive GUAIFENESIN-CODEINE 100-10 MG/5ML ORAL SYRUP 2 tsp every 6 hours prn GUAIFENESIN-CODEINE 100-10 MG/5ML ORAL SYRUP 828137 GUAIFENESIN-CODEINE Inactive VICKS DAYQUIL SEVERE COLD/FLU TABLET 1 tab every 6 hours prn 201 02/22/17 VICKS DAYQUIL SEVERE COLD/FLU TABLET PHENYLEPHRI [id number]-GR-[id number]-APAP TABS Inactive BACTRIM DS 800-160 MG ORAL TABLET 1 twice a day 05/30 BACTRIM DS 800-160 MG ORAL TABLET 737456 SULFAMETHOXAZOLE-TRIMETHOPRIM Inactiv e PROMETHAZINE HCL 25 MG ORAL TABLET 1 four times a day as nee ded for vomiting PROMETHAZINE HCL 25 MG ORAL TABLET 250403 PROMETHAZINE HCL Inactive ZYRTEC ALLERGY 10 MG ORAL CAPSULE 1 po qd ZYRTEC ALLERGY 10 MG ORAL CAPSULE CETIRIZINE HCL Inactive MACROBID 100 MG ORAL CAPSULE 1 cap by mouth twice daily MACROBID 100 MG ORAL CAPSULE 5568491 NITROFURANTOIN MONOHYD MACRO In active LOMOTIL 2.5-0.025 MG ORAL TABLET 1 to 2 four times a day as needed for diarrhea LOMOTIL 2.5-0.025 MG ORAL TABLET 9522897 DIPHENOXYLATE-ATROPINE Inactive CYCLOBENZAPRINE HCL 10 MG ORAL TABLET 1/2 - 1 tablet b y mouth three times daily as needed for muscle spasm/pain CYCLOBEN ZAPRINE HCL 10 MG ORAL TABLET 741419 CYCLOBENZAPRINE HCL Inactive AMOXICILLIN 500 MG ORAL TABLET 2 tabs twice a day for 10 days 20 07/09/11 AMOXICILLIN 500 MG ORAL TABLET 774567 AMOXICILLIN I nactive LOMOTIL 2.5-0.025 MG ORAL TABLET 1 to 2 four times a day as needed for diarrhea LOMOTIL 2.5-0.025 MG ORAL TABLET 9449232 DIPHENOXYLATE-ATROPINE Inactive ZOFRAN 4 MG ORAL TABLET 1 TAB PO Q 6 HRS PRN NAUSEA 20 07/10/15 ZOFRAN 4 MG ORAL TABLET 213129 ONDANSETRON HCL Inactive CITRATE OF MAGNESIA ORAL SOLUTION 1 bottle today for constipatio n CITRATE OF MAGNESIA ORAL SOLUTION 6127076 MAGNESIUM CITR ATE Inactive PROMETHAZINE HCL 12.5 MG ORAL TABLET 1 tablet by mouth every 6 hours as needed for nausea/vomiting PROMETHAZINE HCL 12.5 MG ORA L TABLET 167517 PROMETHAZINE HCL Inactive PREDNISONE 20 MG ORAL TABLET 1 tablet twice daily for 2 days, then 1 tablet once daily for 2 days PREDNISONE 20 MG ORAL TABLET 929567 PREDNISONE Inactive ALPRAZOLAM 0.25 MG ORAL TABLET 1 tablet by mouth every 8 hours as needed for stress ALPRAZOLAM 0.25 MG ORAL TABLET 224608 ALPRA ZOLAM Inactive FLONASE 50 MCG/ACT NASAL SUSPENSION 1 spray each nostr il twice daily for allergies and runny nose until gone FLON ASE 50 MCG/ACT NASAL SUSPENSION 2844310 FLUTICASONE PROPIONATE Inactive PREDNISONE 20 MG ORAL TABLET 1 tablet daily for airway inflammat ion PREDNISONE 20 MG ORAL TABLET 024116 PREDNISONE Sayre ctive NAPROXEN 500 MG ORAL TABLET Take 1 tab BID NAPROXEN 500 MG ORAL TABLET 659083 NAPROXEN Inactive ZOLOFT 50 MG ORAL TABLET 1 tablet by mouth daily 12/08 ZOLOFT 50 MG ORAL TABLET 056768 SERTRALINE HCL Inactive LOMOTIL 2.5-0.025 MG ORAL TABLET 1 tab po four times a day as needed for diarrhea LOMOTIL 2.5-0.025 MG ORAL TABLET 1639148 DIPHENOXYLATE-ATROPINE Inactive CETIRIZINE HCL 10 MG ORAL TABLET 1 po qd PRN Allergies CETIRIZINE HCL 10 MG ORAL TABLET 3325482 CETIRIZINE HCL Inactiv e TUSSIONEX PENNKINETIC ER 10-8 MG/5ML ORAL SUSPENSION E XTENDED RELEASE 5ml po q12hr PRN Cough TUSSIONEX PENNKINETI C ER 10-8 MG/5ML ORAL SUSPENSION EXTENDED RELEASE HYDROCOD POLST-CHLORPHEN POLST I nactive NEXPLANON IMPLANT right arm subcutaneously NEXPLANON IMPLANT ETONOGESTREL IMPL Inactive PROTONIX 40 MG ORAL TABLET DELAYED RELEASE 1 po q a.m. PROTONIX 40 MG ORAL TABLET DELAYED RELEASE 558223 PANTOPRAZOLE SODI UM Inactive CHERATUSSIN AC 100-10 MG/5ML ORAL SYRUP 1 tsp by mouth every 4 hours as needed for cough CHERATUSSIN AC 100-10 MG/5ML ORAL SYRUP 9 51424 GUAIFENESIN-CODEINE Inactive GUAIFENESIN DM 400-20 MG ORAL [...] tid K EFLEX 500 MG ORAL CAPSULE 968731 CEPHALEXIN Inactive AMOXICILLIN 500 MG ORAL TABLET take 1 tab po TID 08/05 AMOXICILLIN 500 MG ORAL TABLET 571648 AMOXICILLIN Inactive AMOXICILLIN 500 MG ORAL CAPSULE 1 tab by mouth 3 times daily 201 11/24/09 AMOXICILLIN 500 MG ORAL CAPSULE 886184 AMOXICILLIN Inactive ZITHROMAX 250 MG ORAL TABLET 2 po today, then 1 po q days 2-5 20 09/23/25 ZITHROMAX 250 MG ORAL TABLET 238038 AZITHROMYCIN Arlen ctive ZITHROMAX 250 MG ORAL TABLET 2 po today, then 1 po q days 2-5 20 10/03/08 ZITHROMAX 250 MG ORAL TABLET 461880 AZITHROMYCIN Sayre ctive AZITHROMYCIN 500 MG ORAL TABLET 1 PO q day x 6 days 20 03/02/23 AZITHROMYCIN 500 MG ORAL TABLET 5474040 AZITHROMYCIN Inactive BACTRIM 400-80 MG ORAL TABLET take one po BID BACTRIM 400- 80 MG ORAL TABLET 673606 SULFAMETHOXAZOLE-TRIMETHOPRIM Inactive AZITHROMYCIN 250 MG ORAL TABLET 2 po qd x 1 day, then 1 po q d x 4 days AZITHROMYCIN 250 MG ORAL TABLET 036424 AZITHROMY ALLISON Inactive PREDNISONE 20 MG ORAL TABLET 2 tabs daily for 3 days, 1 tab daily for 3 days, 1/2 tab daily for 2 days PREDNISONE 20 MG ORAL T ABLET 402703 PREDNISONE Inactive ZITHROMAX 250 MG ORAL TABLET 2 po today, then 1 po q days 2-5 20 06/08/16 ZITHROMAX 250 MG ORAL TABLET 276044 AZITHROMYCIN Arlen ctive FLAGYL 500 MG ORAL TABLET 1 tablet by mouth two times daily 2014 FLAGYL 500 MG ORAL TABLET 311083 METRONIDAZOLE Inacti ve AUGMENTIN 875-125 MG ORAL TABLET 1 tab by mouth twice daily with food AUGMENTIN 875-125 MG ORAL TABLET 488980 AMOXICIL ELSA-POT CLAVULANATE Inactive NAPROXEN 500 MG ORAL TABLET one tab PO BID NAPROXEN 500 MG ORAL TABLET 234736 NAPROXEN Inactive PREDNISONE 20 MG ORAL TABLET 2 tabs daily for 3 days, 1 tab daily for 3 days, 1/2 tab daily for 2 days PREDNISONE 20 MG ORAL T ABLET 229908 PREDNISONE Inactive AZITHROMYCIN 250 MG ORAL TABLET 2 po qd x 1 day, then 1 po q d x 4 days AZITHROMYCIN 250 MG ORAL TABLET 441720 AZITHROMY ALLISON Inactive PREDNISONE 20 MG ORAL TABLET 2 tabs daily for 3 days, 1 tab daily for 3 days, 1/2 tab daily for 2 days PREDNISONE 20 MG ORAL T ABLET 630861 PREDNISONE Inactive ZITHROMAX Z-EMIL 250 MG ORAL TABLET 2 today, then 1 daily for 4 d ays ZITHROMAX Z-EMIL 250 MG ORAL TABLET 720555 AZITHROMYCIN Inactive CEFDINIR 300 MG ORAL CAPSULE [...] days PREDNISONE 20 MG ORAL T ABLET 689410 PREDNISONE Inactive BACTRIM DS 800-160 MG ORAL TABLET 1 tab by mouth twice daily 201 05/02/30 BACTRIM DS 800-160 MG ORAL TABLET 346812 TRIMETHOPRIM-SULFAMETHOXAZOLE Inactive ZITHROMAX Z-EMIL 250 MG ORAL TABLET 2 today, then 1 daily for 4 d ays ZITHROMAX Z-EMIL 250 MG ORAL TABLET 244003 AZITHROMYCIN Inactive TAMIFLU 75 MG ORAL CAPSULE 1 po BID x 5 days 0 TAMIFLU 75 MG ORAL CAPSULE 024092 OSELTAMIVIR PHOSPHATE Inactive CEFDINIR 300 MG ORAL CAPSULE 1 po BID x 10 days 2018/01/03 CEFDINIR 300 MG ORAL CAPSULE 269504 CEFDINIR Inactive ZITHROMAX Z-EMIL 250 MG TABS Take two tablets today and then 1 tablet daily for 4 days ZITHROMAX Z-EMIL 250 MG TABS 527696 AZITHROM YCIN Inactive AMOXICILLIN 875 MG ORAL TABLET 1 tab by mouth twice daily AMOXICILLIN 875 MG ORAL TABLET 761139 AMOXICILLIN Inactive Advance Directives Directive Description Start [...] Code Encounter Date Provider Facility [facility]-[id number] Vst-Est Level IV 13:45:[address] Tali Devi PA-C [facility]08943 [id number] Vst-Est Level III 09:41:31 CDT Arie Casper MD [facility]43640 [id number] Vst-Est Level III 18:20:11 CDT [facility]91870 [id number] Vst-Est Level III 17:21:41 CDT [facility]91297 [id number] Vst-Est Level IV 13:30:22 C NIC Casper MD [facility]73884 Level 4 Est. Patient 13:05:26 CDT Myrna maldonado MD [facility]51319 [id number] Vst-Est Level IV 20:50:21 C DT Arie Casper MD [facility] [place]-43361 Level 3 Est. Patient 11:49:[address] Jessica boyd [facility]73360 Level 3 Est. Patient 14:55:[address] Jose Zhong MD [facility]26315 Level 3 Est. Patient 10:21:[address] Arie mcqueen MD [facility] CPT-39619 Level 3 Est. Patient 11:35:[address] Arie mcqueen MD [facility] CPT-76497 Level 3 Est. Patient 15:40:28 CDT Brii Are ll [facility] CPT-12665 Level 3 Est. Patient 16:40:36 CDT Arie mcqueen MD [facility] CPT-99618 Level 4 Est. Patient 15:29:[address] Arie mcqueen MD [facility] CPT-50945 Level 3 Est. Patient 15:18:[address] Jono black [facility] CPT-63466 Level 4 Est. Patient 12:08:[address] Brii Are ll [facility] CPT-72941 Level 3 Est. Patient 09:24:42 CDT Brii Are [facility] CPT-87202 Level 3 Est. Patient 09:12:56 CDT Arie mcqueen MD [facility] CPT-38730 Level 3 Est. Patient 16:40:54 CDT Jose Zhong MD [facility] CPT-08485 Level 2 Est. Patient 13:01:13 CDT Brii Are ll [facility] CPT-13864 Level 3 Est. Patient 11:55:[address] Jono black [facility] CPT-27279 Level 3 Est. Patient 09:52:[address] Brii Are ll [facility] CPT-85508 Level 3 Est. Patient 16:25:[address] Rich Rosales MD [facility] CPT-43093 Level 3 Est. Patient 20:33:55 CDT Arie mcqueen MD [facility] CPT-09483 Level 3 Est. Patient 14:18:20 CDT Rich Rosales MD [facility] CPT-28652 Level 4 Est. Patient 09:34:31 CDT Arie mcqueen MD [facility] CPT-67371 Level 3 Est. Patient 09:08:[address] Liliana vincent MD PhD [facility] CPT-63347 Level 3 Est. Patient 16:44:[address] Arie mcqueen MD [facility] CPT-86283 Level 3 Est. Patient 10:44:27 CDT Arie mcqueen MD [facility] CPT-41289 Level 3 Est. Patient 08:55:41 CDT Jose Zhong MD [facility] CPT-26000 Level 3 Est. Patient 18:37:31 CDT Liliana vincent MD PhD [facility] CPT-31008 Level 3 Est. Patient 14:28:23 CDT Abelardo HERNANDEZ [facility] CPT-68019 Level 3 Est. Patient 15:18:[address] Arie mcqueen MD [facility] CPT-90662 Level 3 Est. Patient 10:11:[address] Arie mcqueen MD [facility] CPT-33202 Level 3 Est. Patient 10:55:[address] Jono black DO [facility] CPT-25205 Level 3 Est. Patient 17:29:05 CDT Arie mcqueen MD [facility] Procedures Code Procedure Name Date Entry Date Standard Desc ription CPT-06141 First Vx - Ix admin via ID I M or jet injects without counseling by physician 13:00:[address] CPT-74463 Flulaval Intramuscular Injectable 13:00:[address] CPT-33924 Urine Dip (Floor Use Only) 12:20:[address] 201 06/03/24 CPT-84940 Sono Soft Tissue Head and Neck - XRAY US E ONLY 17:10:14 CDT CPT-41093 Ear Wash with irrigation 17:21:41 CDT 07/04 CPT-13047 Nexplanon Removal 15:40:28 CDT CPT-47134 Sono transvag pelvis non OB uterus ovari es cervix - XRAY USE ONLY 08:58:[address] CPT-80920 UA w micro - LAB USE ONLY 16:04:[address] 2015 CPT-87182 Wet Prep/GEN - LAB USE ONLY 16:04:[address] 20 08/10/29 CPT-99954 First Vx - Ix admin via ID I M or jet injects without counseling by physician 16:57:10 CDT CPT-56733 Fluzone Preservative Free Intramuscular Suspension 16:57:10 CDT CPT-J0696 Rocephin 1000 mg (Ceftriaxone) 11:49:23 CDT CPT-J1040 Depo Medrol 80 mg (Methyl Prednisolone A cetate) 11:49:23 CDT CPT-J1100 Decadron 8mg (Dexamethasone) 11:49:23 CDT 2 CPT-57704 Abx/Therapy Injection 11:49:23 CDT CPT-18630 Abx/Therapy Injection 11:49:23 CDT CPT-00037 Abd compl w upright 09:07:[address] CPT-94977 Ear Wash 16:12:[address] CPT-OV Office Visit 11:12:01 CDT CPT-OV Office Visit 15:30:23 CDT CPT-81204 Sono pelvis non OB uterus ovaries cervix 15:50:44 CDT CPT-34729 Hand comp min 3V 16:42:32 CDT CPT-20066 Abd compl w upright 12:17:01 CDT CPT-12230 Nexplanon Placement 15:07:[address] CPT-12365 Removal of IUD 15:07:[address] CPT-74970 TB Tubersol 12:09:32 CDT CPT-07980 TB Tubersol 13:55:43 CDT
--- OUTSIDE RECORDS SUMMARY | 2020-03-03 07:05 | XMS REPORT | Clinical Summary ---
Author Author Admin, Diamante Marcelo Organization [employer] Address Unknown Phone Unavailable Allergies, Adverse Reactions, [...] APRN Dysthymic disorder URI 465.9 Active Jono Gangon DO Acu te upper respiratory infections of [...] respiratory manifestations Sinusitis 473.9 Active Jessica Heaton LABORATORY COORDINATOR Unspecified sinusitis (chronic) Other mixed anxiety [...] Cerumen impaction, bilateral 380.4 Active Brii Russ LABORATORY COORDINATOR Impacted cerumen Tonsillar enlargement 474.11 Active Brii Russ APRN Hypertrophy of tonsils alone Influenza Vaccination for Prophylaxis V04.81 Inactive Brii Russ LABORATORY COORDINATOR Need for prophylactic vaccin ation and inoculation against influenza Submandibular lymph node 785.6 Active Brii Are ll LABORATORY COORDINATOR Enlargement of lymph nodes Influenza Vaccination [...] acute ICD-461.9 Inactive Liliana cheema MD PhD Vaginal bleeding ICD-623.8 Inactive Jose Mcwilliams MD Influenza Vaccination for Prophylaxis ICD-V04.81 6 Inactive Carole HOPKINS Influenza Vaccination for Prophylaxis ICD-V04.81 8 Inactive Nilam Weber Influenza Vaccination for Prophylaxis ICD-V04.81 5 Inactive KELLIE Summers Urinary frequency ICD-788.41 Inactive Jose Zhong MD Medication List Medication Instructions Start Date Stop Date Generic Name NDC Status Provider Patient Instruction DIFLUCAN 100 MG ORAL TABLET 1 tablet by mouth daily, R EPEAT 2ND DOSE IN 7 DAYS IF STILL SYMPTOMATIC FLUCONAZOLE 02722179432 Active Nayana Devi PA-C Active KEFLEX 500 MG ORAL CAPSULE 1 po tid CEPHALEXI N 60949369840 No Longer Active Tali Devi PA-C Active CONCEPT DHA 53.5-38-1 MG ORAL CAPSULE 1 tablet daily [id number] 3 60052408844 Active Oxana Souza LPN Active PROTONIX 40 MG ORAL TABLET DELAYED RELEASE 1 pill by m outh daily, for acid reflux PANTOPRAZOLE SODIUM 96941288659 Active Roseann Crawford Active AMOXICILLIN 875 MG ORAL TABLET 1 tab by mouth twice daily 1 AMOXICILLIN 60799589612 No Longer Active Brii Russ APRN Active ALPRAZOLAM 0.25 MG ORAL TABLET 1 tablet by mouth twice a day as needed for stress/anxiety ALPRAZOLAM 54833946356 Active KELLIE Escobar Active ESCITALOPRAM OXALATE 10 MG ORAL TABLET take 1 tab po qhs for mod 20 10/04/18 ESCITALOPRAM OXALATE 65071215913 Active Arie Casper MD Active TUSSIONEX PENNKINETIC ER 10-8 MG/5ML ORAL SUSPENSION E XTENDED RELEASE 5ml po q12hr PRN Cough HYDROCOD POLST-CHLORPHEN POLST 5 7144825893 No Longer Active Myrna Roberto MD Active ZITHROMAX Z-EMIL 250 MG TABS Take two tablets today and then 1 tablet daily for 4 days AZITHROMYCIN 55294104730 No Longer Active Flaco Rosales MD Active GUAIFENESIN DM 400-20 MG ORAL TABLET 1 pill by mouth t wice daily, if needed for cough DEXTROMETHORPHAN-GUAIFENESIN 42448856686 No Longer Active Rich Rosales MD Active CEFDINIR 300 MG ORAL CAPSULE 1 po BID x 10 days CEFDINIR 47894066508 No Longer Active Jillarlen Heaton APRN Active CHERATUSSIN AC 100-10 MG/5ML ORAL SYRUP 1 tsp by mouth every 4 hours as needed for cough GUAIFENESIN-CODEINE 83630550421 No Longe r Active Waynellina Florina LABORATORY COORDINATOR Active TAMIFLU 75 MG ORAL CAPSULE 1 po BID x 5 days 0 OSELTAMIVIR PHOSPHATE 00461082663 No Longer Active Jose Zhong MD Activ e ZITHROMAX Z-EMIL 250 MG ORAL TABLET 2 today, then 1 daily for 4 d ays AZITHROMYCIN 57849428186 No Longer Active Arie Casper MD Active PROTONIX 40 MG ORAL TABLET DELAYED RELEASE 1 po q a.m. PANTOPRAZOLE SODIUM 25818212264 No Longer Active Arie Casper MD Active BACTRIM DS 800-160 MG ORAL TABLET 1 tab by mouth twice daily 201 05/02/30 TRIMETHOPRIM-SULFAMETHOXAZOLE 11665774298 No Longer Active R [facility] Ty Active NEXPLANON IMPLANT right arm subcutaneously ETONOGESTREL IMPL 95177106394 No Longer Active Brii Russ APRN Active TUSSIONEX PENNKINETIC ER 10-8 MG/5ML ORAL SUSPENSION E XTENDED RELEASE 5ml po q12hr PRN Cough HYDROCOD POLST-CHLORPHEN POLST 5 2561783367 No Longer Active Brii Russ APRN Active CETIRIZINE HCL 10 MG ORAL TABLET 1 po qd PRN Allergies CETIRIZINE HCL 25678465717 No Longer Active Brii Russ APRN Activ e PREDNISONE 20 MG ORAL TABLET 2 tabs daily for 3 days, 1 tab daily for 3 days, 1/2 tab daily for 2 days PREDNISONE 29857063894 No Longer Active Arie Casper MD Active LOMOTIL 2.5-0.025 MG ORAL TABLET 1 tab po four times a day as needed for diarrhea DIPHENOXYLATE-ATROPINE 65671654758 No Lo nger Active Arie Casper MD Active ZOLOFT 50 MG ORAL TABLET 1 tablet by mouth daily 12/08 SERTRALINE HCL 95502983659 No Longer Active Arie Casper MD Ac tive NAPROXEN 500 MG ORAL TABLET Take 1 tab BID NAPR OXEN 25722771284 No Longer Active Arie Casper MD Active CEFDINIR 300 MG ORAL CAPSULE 1 po BID x 10 days CEFDINIR 46360695072 No Longer Active Brii Russ APRN Active PREDNISONE 20 MG ORAL TABLET 1 tablet daily for airway inflammat ion PREDNISONE 09258440247 No Longer Active Brii Russ APRN A ctive CEFDINIR 300 MG ORAL CAPSULE 1 po BID x 10 days CEFDINIR 23891522746 No Longer Active Jono Gagnon DO Active FLONASE 50 MCG/ACT NASAL SUSPENSION 1 spray each nostr il twice daily for allergies and runny nose until gone FLUT ICASONE PROPIONATE 83104599881 No Longer Active Jono Gagnon DO Active ALPRAZOLAM 0.25 MG ORAL TABLET 1 tablet by mouth every 8 hours as needed for stress ALPRAZOLAM 68748793076 No Longer Active Jono Gagnon DO Active ZITHROMAX Z-EMIL 250 MG ORAL TABLET 2 today, then 1 daily for 4 d ays AZITHROMYCIN 91231200586 No Longer Active Arie Casper MD Active PREDNISONE 20 MG ORAL TABLET 2 tabs daily for 3 days, 1 tab daily for 3 days, 1/2 tab daily for 2 days PREDNISONE 75983338006 No Longer Active Brii Russ APRN Active PREDNISONE 20 MG ORAL TABLET 1 tablet twice daily for 2 days, then 1 tablet once daily for 2 days PREDNISONE 52476600107 No Longer Active Brii Russ APRN Active PROMETHAZINE HCL 12.5 MG ORAL TABLET 1 tablet by mouth every 6 hours as needed for nausea/vomiting PROMETHAZINE HCL 50689815432 No L onger Active Jono Gagnon DO Active CITRATE OF MAGNESIA ORAL SOLUTION 1 bottle today for constipatio n MAGNESIUM CITRATE 87379971565 No Longer Active Jono Gagnon DO Active ZOFRAN 4 MG ORAL TABLET 1 TAB PO Q 6 HRS PRN NAUSEA 07/10/15 ONDANSETRON HCL 38011213396 No Longer Active Brii Russ APRN Acti ve LOMOTIL 2.5-0.025 MG ORAL TABLET 1 to 2 four times a day as needed for diarrhea DIPHENOXYLATE-ATROPINE 86105469757 No Longer Active January Russ APRN Active AMOXICILLIN 500 MG ORAL TABLET 2 tabs twice a day for 10 days 20 07/09/11 AMOXICILLIN 87214949078 No Longer Active Brii Russ APRN Active CYCLOBENZAPRINE HCL 10 MG ORAL TABLET 1/2 - 1 tablet b y mouth three times daily as needed for muscle spasm/pain CYCLOBENZAPRINE HCL 36308882471 No Longer Active Arie Casper MD Active LOMOTIL 2.5-0.025 MG ORAL TABLET 1 to 2 four times a day as needed for diarrhea DIPHENOXYLATE-ATROPINE 76796896211 No Longer Active Fozia Casper MD Active MACROBID 100 MG ORAL CAPSULE 1 cap by mouth twice daily NITROFURANTOIN MONOHYD MACRO 67021380630 No Longer Active Arie Casper MD Active ZYRTEC ALLERGY 10 MG ORAL CAPSULE 1 po qd CE TIRIZINE HCL 59007939417 No Longer Active Arie Casper MD Active AZITHROMYCIN 250 MG ORAL TABLET 2 po qd x 1 day, then 1 po q d x 4 days AZITHROMYCIN 47915859012 No Longer Active Jillina Fra naomi LABORATORY COORDINATOR Active PREDNISONE 20 MG ORAL TABLET 2 tabs daily for 3 days, 1 tab daily for 3 days, 1/2 tab daily for 2 days PREDNISONE 74837007700 No Longer Active Jillina Fradeepl LABORATORY COORDINATOR Active PROMETHAZINE HCL 25 MG ORAL TABLET 1 four times a day as nee ded for vomiting PROMETHAZINE HCL 48504465206 No Longer Active Myrna Roberto MD Active BACTRIM DS 800-160 MG ORAL TABLET 1 twice a day 05/30 SULFAMETHOXAZOLE-TRIMETHOPRIM 85222788512 No Longer Active Myrna Roberto MD Active VICKS DAYQUIL SEVERE COLD/FLU TABLET 1 tab every 6 hours prn 201 02/22/17 [id number] TABS 30166199473 No Longer Active Chris Roberto MD Active GUAIFENESIN-CODEINE 100-10 MG/5ML ORAL SYRUP 2 tsp every 6 hours prn GUAIFENESIN-CODEINE 52270630976 No Longer Active Myrna Roberto MD Active NAPROXEN 500 MG ORAL TABLET one tab PO BID NAPR OXEN 80438335761 No Longer Active Myrna Roberto MD Active AUGMENTIN 875-125 MG ORAL TABLET 1 tab by mouth twice daily with food AMOXICILLIN-POT CLAVULANATE 51128435622 No Longer Act zaid Liliana Estrada MD PhD Active AMOXICILLIN 500 MG ORAL CAPSULE 1 tab by mouth 3 times daily 201 02/21/05 AMOXICILLIN 43558901296 No Longer Active Liliana Estrada MD PhD Active TESSALON PERLES 100 MG ORAL CAPSULE 1 tablet by mouth 3 times da cory BENZONATATE 21795525430 No Longer Active Liliana Estrada MD PhD Active FLAGYL 500 MG ORAL TABLET 1 tablet by mouth two times daily 2014 METRONIDAZOLE 41626310893 No Longer Active Nilam ida Ac tive ZITHROMAX 250 MG ORAL TABLET 2 po today, then 1 po q days 2-5 20 06/08/16 AZITHROMYCIN 99481024420 No Longer Active Arie Casper MD Active VITAMINS 0.8 MG ORAL TABLET take 1 tab po qday [id number] 03249177291 No Longer Active Arie Casper MD Active IBUPROFEN 800 MG ORAL TABLET take one po Q 8 hours 201 02/01/16 IBUPROFEN 50155302058 No Longer Active Arie Casper MD Acti ve [facility] TUSSIN COUGH/COLD CF 5-10-100 MG/5ML ORAL LIQUID 2 teasp oons every 4 hours [id number] 56486471025 No Longer Active Blaine Casper MD Active COMTREX COLD/COUGH DAY/NITE MS 5-2-10-325 MG ORAL 2 caps deja ry 4 hours [id number]-APAP 42107992753 No Longer Active Da aleksandra Casper MD Active CHLORASEPTIC MAX SORE THROAT 15-10 MG MOUTH/THROAT LOZENGE 1 every 2 hours prn BENZOCAINE-MENTHOL 00049919079 No Longer Active Arie Casper MD Active PREDNISONE 20 MG ORAL TABLET 2 tabs daily for 3 days, 1 tab daily for 3 days, 1/2 tab daily for 2 days PREDNISONE 44745790585 No Longer Active Jose Zhong MD Active AZITHROMYCIN 250 MG ORAL TABLET 2 po qd x 1 day, then 1 po q d x 4 days AZITHROMYCIN 98342085413 No Longer Active Jose Mcwilliams MD Active ZOFRAN ODT 4 MG ORAL TABLET DISINTEGRATING 1 po q6hr PRN Nausea ONDANSETRON 31575474965 No Longer Active Rich Rosales MD Active ZOFRAN 4 MG ORAL TABLET 1 tablet every 4 hours ONDANSETRON HCL 89087032105 No Longer Active Rich Rosales MD Activ e MUCINEX 600 MG ORAL TABLET EXTENDED RELEASE 12 HOUR Ta ke 1-2 tablets every 12 hours GUAIFENESIN 40366101182 No Longer Active Rich Rosales MD Active BACTRIM 400-80 MG ORAL TABLET take one po BID SULFAMETHOXAZOLE-TRIMETHOPRIM 21844187765 No Longer Active Abelardo HERNANDEZ Active AZITHROMYCIN 500 MG ORAL TABLET 1 PO q day x 6 days 20 03/02/23 AZITHROMYCIN 56462331802 No Longer Active Tin HERNANDEZ Activ e ZITHROMAX 250 MG ORAL TABLET 2 po today, then 1 po q days 2-5 20 10/03/08 AZITHROMYCIN 98288895525 No Longer Active Arie Casper MD Active ZITHROMAX 250 MG ORAL TABLET 2 po today, then 1 po q days 2-5 20 09/23/25 AZITHROMYCIN 57792354703 No Longer Active Arie Casper MD Active AMOXICILLIN 500 MG ORAL CAPSULE 1 tab by mouth 3 times daily 201 11/24/09 AMOXICILLIN 32436320784 No Longer Active Arie Casper MD Active BACTRIM DS 800-160 MG ORAL TABLET 1 tab by mouth twice daily 201 11/03/14 TRIMETHOPRIM-SULFAMETHOXAZOLE 32699116155 No Longer Active Fozia Casper MD Active AMOXICILLIN 500 MG ORAL TABLET take 1 tab po TID 08/05 AMOXICILLIN 54493437772 No Longer Active Arie Casper MD Acti [...] 4 hours ZOFRAN 4 MG ORAL TABLET 629177 ONDANSETRON HCL Inactive ZOFRAN ODT 4 MG [...] COLD/COUGH DAY/NITE MS 5-2-10-325 MG ORA L [id number] Inactive [facility] TUSSIN COUGH/COLD CF 5-10-100 MG/5ML ORAL LIQUID 2 teasp oons every 4 hours [facility] TUSSIN COUGH/COLD CF 5-10-100 MG/5ML ORAL LI QUID [id number] Inactive IBUPROFEN 800 MG ORAL TABLET take one po Q 8 hours 201 02/01/16 IBUPROFEN 800 MG ORAL TABLET IBUPROFEN Inactive VITAMINS 0.8 MG ORAL TABLET take 1 tab po qday VITAMINS 0.8 MG ORAL TABLET [id number] E-FA Inactive TESSALON PERLES 100 MG ORAL CAPSULE 1 tablet by mouth 3 times da cory TESSALON PERLES 100 MG ORAL CAPSULE 040302 BENZONATATE Inactive AMOXICILLIN 500 MG ORAL CAPSULE 1 tab by mouth 3 times daily 201 02/21/05 AMOXICILLIN 500 MG ORAL CAPSULE 297614 AMOXICILLIN Inactive GUAIFENESIN-CODEINE 100-10 MG/5ML ORAL SYRUP 2 tsp every 6 hours prn GUAIFENESIN-CODEINE 100-10 MG/5ML ORAL SYRUP 349337 GUAIFENESIN-CODEINE Inactive VICKS DAYQUIL SEVERE COLD/FLU TABLET 1 tab every 6 hours prn 201 02/22/17 VICKS DAYQUIL SEVERE COLD/FLU TABLET PHENYLEPHRI [id number]-AS-[id number]-APAP TABS Inactive BACTRIM DS 800-160 MG ORAL TABLET 1 twice a day 05/30 BACTRIM DS 800-160 MG ORAL TABLET 518657 SULFAMETHOXAZOLE-TRIMETHOPRIM Inactiv e PROMETHAZINE HCL 25 MG ORAL TABLET 1 four times a day as nee ded for vomiting PROMETHAZINE HCL 25 MG ORAL TABLET 429614 PROMETHAZINE HCL Inactive ZYRTEC ALLERGY 10 MG ORAL CAPSULE 1 po qd ZYRTEC ALLERGY 10 MG ORAL CAPSULE CETIRIZINE HCL Inactive MACROBID 100 MG ORAL CAPSULE 1 cap by mouth twice daily MACROBID 100 MG ORAL CAPSULE 4904673 NITROFURANTOIN MONOHYD MACRO In active LOMOTIL 2.5-0.025 MG ORAL TABLET 1 to 2 four times a day as needed for diarrhea LOMOTIL 2.5-0.025 MG ORAL TABLET 8440347 DIPHENOXYLATE-ATROPINE Inactive CYCLOBENZAPRINE HCL 10 MG ORAL TABLET 1/2 - 1 tablet b y mouth three times daily as needed for muscle spasm/pain CYCLOBEN ZAPRINE HCL 10 MG ORAL TABLET 919634 CYCLOBENZAPRINE HCL Inactive AMOXICILLIN 500 MG ORAL TABLET 2 tabs twice a day for 10 days 20 07/09/11 AMOXICILLIN 500 MG ORAL TABLET 291257 AMOXICILLIN I nactive LOMOTIL 2.5-0.025 MG ORAL TABLET 1 to 2 four times a day as needed for diarrhea LOMOTIL 2.5-0.025 MG ORAL TABLET 9814848 DIPHENOXYLATE-ATROPINE Inactive ZOFRAN 4 MG ORAL TABLET 1 TAB PO Q 6 HRS PRN NAUSEA 20 07/10/15 ZOFRAN 4 MG ORAL TABLET 109745 ONDANSETRON HCL Inactive CITRATE OF MAGNESIA ORAL SOLUTION 1 bottle today for constipatio n CITRATE OF MAGNESIA ORAL SOLUTION 2297025 MAGNESIUM CITR ATE Inactive PROMETHAZINE HCL 12.5 MG ORAL TABLET 1 tablet by mouth every 6 hours as needed for nausea/vomiting PROMETHAZINE HCL 12.5 MG ORA L TABLET 746817 PROMETHAZINE HCL Inactive PREDNISONE 20 MG ORAL TABLET 1 tablet twice daily for 2 days, then 1 tablet once daily for 2 days PREDNISONE 20 MG ORAL TABLET 402419 PREDNISONE Inactive ALPRAZOLAM 0.25 MG ORAL TABLET 1 tablet by mouth every 8 hours as needed for stress ALPRAZOLAM 0.25 MG ORAL TABLET 351448 ALPRA ZOLAM Inactive FLONASE 50 MCG/ACT NASAL SUSPENSION 1 spray each nostr il twice daily for allergies and runny nose until gone FLON ASE 50 MCG/ACT NASAL SUSPENSION 1962621 FLUTICASONE PROPIONATE Inactive PREDNISONE 20 MG ORAL TABLET 1 tablet daily for airway inflammat ion PREDNISONE 20 MG ORAL TABLET 079409 PREDNISONE [place] ctive NAPROXEN 500 MG ORAL TABLET Take 1 tab BID NAPROXEN 500 MG ORAL TABLET 283940 NAPROXEN Inactive ZOLOFT 50 MG ORAL TABLET 1 tablet by mouth daily 12/08 ZOLOFT 50 MG ORAL TABLET 519078 SERTRALINE HCL Inactive LOMOTIL 2.5-0.025 MG ORAL TABLET 1 tab po four times a day as needed for diarrhea LOMOTIL 2.5-0.025 MG ORAL TABLET 2184026 DIPHENOXYLATE-ATROPINE Inactive CETIRIZINE HCL 10 MG ORAL TABLET 1 po qd PRN Allergies CETIRIZINE HCL 10 MG ORAL TABLET 5754503 CETIRIZINE HCL Inactiv e TUSSIONEX PENNKINETIC ER 10-8 MG/5ML ORAL SUSPENSION E XTENDED RELEASE 5ml po q12hr PRN Cough TUSSIONEX PENNKINETI C ER 10-8 MG/5ML ORAL SUSPENSION EXTENDED RELEASE HYDROCOD POLST-CHLORPHEN POLST I nactive NEXPLANON IMPLANT right arm subcutaneously NEXPLANON IMPLANT ETONOGESTREL IMPL Inactive PROTONIX 40 MG ORAL TABLET DELAYED RELEASE 1 po q a.m. PROTONIX 40 MG ORAL TABLET DELAYED RELEASE 942420 PANTOPRAZOLE SODI UM Inactive CHERATUSSIN AC 100-10 MG/5ML ORAL SYRUP 1 tsp by mouth every 4 hours as needed for cough CHERATUSSIN AC 100-10 MG/5ML ORAL SYRUP 9 69724 GUAIFENESIN-CODEINE Inactive GUAIFENESIN DM 400-20 MG ORAL [...] tid K EFLEX 500 MG ORAL CAPSULE 159655 CEPHALEXIN Inactive AMOXICILLIN 500 MG ORAL TABLET take 1 tab po TID 08/05 AMOXICILLIN 500 MG ORAL TABLET 092126 AMOXICILLIN Inactive AMOXICILLIN 500 MG ORAL CAPSULE 1 tab by mouth 3 times daily 201 11/24/09 AMOXICILLIN 500 MG ORAL CAPSULE 854809 AMOXICILLIN Inactive ZITHROMAX 250 MG ORAL TABLET 2 po today, then 1 po q days 2-5 20 09/23/25 ZITHROMAX 250 MG ORAL TABLET 698960 AZITHROMYCIN Arlen ctive ZITHROMAX 250 MG ORAL TABLET 2 po today, then 1 po q days 2-5 20 10/03/08 ZITHROMAX 250 MG ORAL TABLET 783030 AZITHROMYCIN [place] ctive AZITHROMYCIN 500 MG ORAL TABLET 1 PO q day x 6 days 20 03/02/23 AZITHROMYCIN 500 MG ORAL TABLET 6463438 AZITHROMYCIN Inactive BACTRIM 400-80 MG ORAL TABLET take one po BID BACTRIM 400- 80 MG ORAL TABLET 654638 SULFAMETHOXAZOLE-TRIMETHOPRIM Inactive AZITHROMYCIN 250 MG ORAL TABLET 2 po qd x 1 day, then 1 po q d x 4 days AZITHROMYCIN 250 MG ORAL TABLET 301659 AZITHROMY ALLISON Inactive PREDNISONE 20 MG ORAL TABLET 2 tabs daily for 3 days, 1 tab daily for 3 days, 1/2 tab daily for 2 days PREDNISONE 20 MG ORAL T ABLET 129469 PREDNISONE Inactive ZITHROMAX 250 MG ORAL TABLET 2 po today, then 1 po q days 2-5 20 06/08/16 ZITHROMAX 250 MG ORAL TABLET 339137 AZITHROMYCIN Arlen ctive FLAGYL 500 MG ORAL TABLET 1 tablet by mouth two times daily 2014 FLAGYL 500 MG ORAL TABLET 646977 METRONIDAZOLE Inacti ve AUGMENTIN 875-125 MG ORAL TABLET 1 tab by mouth twice daily with food AUGMENTIN 875-125 MG ORAL TABLET 546427 AMOXICIL ELSA-POT CLAVULANATE Inactive NAPROXEN 500 MG ORAL TABLET one tab PO BID NAPROXEN 500 MG ORAL TABLET 112518 NAPROXEN Inactive PREDNISONE 20 MG ORAL TABLET 2 tabs daily for 3 days, 1 tab daily for 3 days, 1/2 tab daily for 2 days PREDNISONE 20 MG ORAL T ABLET 763322 PREDNISONE Inactive AZITHROMYCIN 250 MG ORAL TABLET 2 po qd x 1 day, then 1 po q d x 4 days AZITHROMYCIN 250 MG ORAL TABLET 255641 AZITHROMY ALLISON Inactive PREDNISONE 20 MG ORAL TABLET 2 tabs daily for 3 days, 1 tab daily for 3 days, 1/2 tab daily for 2 days PREDNISONE 20 MG ORAL T ABLET 775246 PREDNISONE Inactive ZITHROMAX Z-EMIL 250 MG ORAL TABLET 2 today, then 1 daily for 4 d ays ZITHROMAX Z-EMIL 250 MG ORAL TABLET 251365 AZITHROMYCIN Inactive CEFDINIR 300 MG ORAL CAPSULE [...] days PREDNISONE 20 MG ORAL T ABLET 137417 PREDNISONE Inactive BACTRIM DS 800-160 MG ORAL TABLET 1 tab by mouth twice daily 201 05/02/30 BACTRIM DS 800-160 MG ORAL TABLET 880952 TRIMETHOPRIM-SULFAMETHOXAZOLE Inactive ZITHROMAX Z-EMIL 250 MG ORAL TABLET 2 today, then 1 daily for 4 d ays ZITHROMAX Z-EMIL 250 MG ORAL TABLET 705181 AZITHROMYCIN Inactive TAMIFLU 75 MG ORAL CAPSULE 1 po BID x 5 days 0 TAMIFLU 75 MG ORAL CAPSULE 358442 OSELTAMIVIR PHOSPHATE Inactive CEFDINIR 300 MG ORAL CAPSULE 1 po BID x 10 days 2018/01/03 CEFDINIR 300 MG ORAL CAPSULE 331094 CEFDINIR Inactive ZITHROMAX Z-EMIL 250 MG TABS Take two tablets today and then 1 tablet daily for 4 days ZITHROMAX Z-EMIL 250 MG TABS 027733 AZITHROM YCIN Inactive AMOXICILLIN 875 MG ORAL TABLET 1 tab by mouth twice daily AMOXICILLIN 875 MG ORAL TABLET 859302 AMOXICILLIN Inactive Advance Directives Directive Description Start [...] Encounters Code Encounter Date Provider Facility [facility]-69664 [id number] Vst-Est Level IV 13:45:[address] Tali Devi PA-C [facility]42861 [id number] Vst-Est Level III 09:41:31 CDT Arie Casper MD [facility]80176 15664-Rkr Vst-Est Level III 18:20:11 CDT [facility]06395 50333-Vbr Vst-Est Level III 17:21:41 CDT [facility]43816 48648-Ebd Vst-Est Level IV 13:30:22 C NIC Casper MD [facility]59752 Level 4 Est. Patient 13:05:26 CDT Myrna maldonado MD [facility]06752 13240-Bml Vst-Est Level IV 20:50:21 C DT Arie Casper MD [facility]-49037 Level 3 Est. Patient 11:49:34 INTERLOCKING PAVEMENT INSTALLER Jessica boyd [facility]08441 Level 3 Est. Patient 14:55:50 INTERLOCKING PAVEMENT INSTALLER Jose Zhong MD [facility]05440 Level 3 Est. Patient 10:21:41 INTERLOCKING PAVEMENT INSTALLER Arie mcqueen MD [facility] CPT-33753 Level 3 Est. Patient 11:35:15 INTERLOCKING PAVEMENT INSTALLER Arie mcqueen MD [facility] CPT-44633 Level 3 Est. Patient 15:40:28 CDT Brii Are ll [facility] CPT-49608 Level 3 Est. Patient 16:40:36 CDT Arie mcqueen MD [facility] CPT-29281 Level 4 Est. Patient 15:29:22 INTERLOCKING PAVEMENT INSTALLER Arie mcqueen MD [facility] CPT-54180 Level 3 Est. Patient 15:18:16 INTERLOCKING PAVEMENT INSTALLER Jono black [facility] CPT-30456 Level 4 Est. Patient 12:08:40 INTERLOCKING PAVEMENT INSTALLER Brii Are ll [facility] CPT-11617 Level 3 Est. Patient 09:24:42 CDT Brii Are [facility] CPT-51433 Level 3 Est. Patient 09:12:56 CDT Arie mcqueen MD [facility] CPT-26102 Level 3 Est. Patient 16:40:54 CDT Jose Zhong MD [facility] CPT-15770 Level 2 Est. Patient 13:01:13 CDT Brii Are [facility] CPT-38501 Level 3 Est. Patient 11:55:30 INTERLOCKING PAVEMENT INSTALLER Jono black [facility] CPT-72401 Level 3 Est. Patient 09:52:36 INTERLOCKING PAVEMENT INSTALLER Brii Are ll [facility] CPT-42413 Level 3 Est. Patient 16:25:33 INTERLOCKING PAVEMENT INSTALLER Rich Rosales MD [facility] CPT-71735 Level 3 Est. Patient 20:33:55 CDT Arie mcqueen MD [facility] CPT-80044 Level 3 Est. Patient 14:18:20 CDT Rich Rosales MD [facility] CPT-29210 Level 4 Est. Patient 09:34:31 CDT Arie mcqueen MD [facility] CPT-40924 Level 3 Est. Patient 09:08:55 INTERLOCKING PAVEMENT INSTALLER Liliana vincent MD PhD [facility] CPT-59345 Level 3 Est. Patient 16:44:07 INTERLOCKING PAVEMENT INSTALLER Arie mcqueen MD [facility] CPT-98085 Level 3 Est. Patient 10:44:27 CDT Arie mcqueen MD [facility] CPT-68664 Level 3 Est. Patient 08:55:41 CDT Jose Zhong MD [facility] CPT-47560 Level 3 Est. Patient 18:37:31 CDT Liliana vincent MD PhD [facility] CPT-33307 Level 3 Est. Patient 14:28:23 CDT Abelardo HERNANDEZ [facility] CPT-10348 Level 3 Est. Patient 15:18:13 INTERLOCKING PAVEMENT INSTALLER Arie mcqueen MD [facility] CPT-58839 Level 3 Est. Patient 10:11:29 INTERLOCKING PAVEMENT INSTALLER Arie mcqueen MD [facility] CPT-10483 Level 3 Est. Patient 10:55:57 INTERLOCKING PAVEMENT INSTALLER Jono black DO [facility] CPT-85556 Level 3 Est. Patient 17:29:05 CDT Arie mcqueen MD [facility] Procedures Code Procedure Name Date Entry Date Standard Desc ription CPT-20888 First Vx - Ix admin via ID I M or jet injects without counseling by physician 13:00:15 INTERLOCKING PAVEMENT INSTALLER CPT-65055 Flulaval Intramuscular Injectable 13:00:15 INTERLOCKING PAVEMENT INSTALLER CPT-19324 Urine Dip (Floor Use Only) 12:20:20 INTERLOCKING PAVEMENT INSTALLER 201 06/03/24 CPT-98088 Sono Soft Tissue Head and Neck - XRAY US E ONLY 17:10:14 CDT CPT-01517 Ear Wash with irrigation 17:21:41 CDT 07/04 CPT-80421 Nexplanon Removal 15:40:28 CDT CPT-56321 Sono transvag pelvis non OB uterus ovari es cervix - XRAY USE ONLY 08:58:14 INTERLOCKING PAVEMENT INSTALLER CPT-42285 UA w micro - LAB USE ONLY 16:04:56 INTERLOCKING PAVEMENT INSTALLER 2015 CPT-35554 Wet Prep/GEN - LAB USE ONLY 16:04:56 INTERLOCKING PAVEMENT INSTALLER 20 08/10/29 CPT-58025 First Vx - Ix admin via ID I M or jet injects without counseling by physician 16:57:10 CDT CPT-27588 Fluzone Preservative Free Intramuscular Suspension 16:57:10 CDT CPT-J0696 Rocephin 1000 mg (Ceftriaxone) 11:49:23 CDT CPT-J1040 Depo Medrol 80 mg (Methyl Prednisolone A cetate) 11:49:23 CDT CPT-J1100 Decadron 8mg (Dexamethasone) 11:49:23 CDT 2 CPT-85733 Abx/Therapy Injection 11:49:23 CDT CPT-79559 Abx/Therapy Injection 11:49:23 CDT CPT-25102 Abd compl w upright 09:07:26 [employer] CPT-76482 Ear Wash 16:12:47 [employer] CPT-OV Office Visit 11:12:01 CDT CPT-OV Office Visit 15:30:23 CDT CPT-38587 Sono pelvis non OB uterus ovaries cervix 15:50:44 CDT CPT-29144 Hand comp min 3V 16:42:32 CDT CPT-70662 Abd compl w upright 12:17:01 CDT CPT-60422 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
--- OUTSIDE RECORDS SUMMARY | 2020-03-03 07:06 | XMS REPORT | Clinical Summary ---
Author Author Admin, Diamante Marcelo Organization [employer] Address Unknown Phone Unavailable Allergies, Adverse Reactions, [...] respiratory manifestations Sinusitis 473.9 Active Jessica Heaton [employer] Unspecified sinusitis (chronic) Other mixed anxiety 300.00 [...] Cerumen impaction, bilateral 380.4 Active Brii Russ [employer] Impacted cerumen Tonsillar enlargement 474.11 Active Brii Russ APRN Hypertrophy of tonsils alone Influenza Vaccination for Prophylaxis V04.81 Inactive Brii Russ [employer] Need for prophylactic vaccin ation and inoculation against influenza Submandibular lymph node 785.6 Active Brii Are ll [employer] Enlargement of lymph nodes Influenza Vaccination for Prophylaxis V04.81 Inactive Arie Casper MD Need for prophylactic vaccin ation and inoculation against influenza Influenza Vaccination for Prophylaxis V04.81 Inactive Tlai Devi PA-C Need for prophylactic vaccin ation [...] discharge ICD-623.5 Inactive Liliana lares MD PhD Vaginal bleeding ICD-623.8 Inactive Jose [...] IN 7 DAYS IF STILL SYMPTOMATIC FLUCONAZOLE 08491316090 Active Nayana Devi PA-C Active KEFLEX 500 MG ORAL CAPSULE 1 po tid CEPHALEXI N 20549580584 No Longer Active Tali Devi PA-C Active CONCEPT DHA 53.5-38-1 MG ORAL CAPSULE 1 tablet daily [id number] 3 53915088096 Active Oxana Souza LPN Active PROTONIX 40 MG ORAL TABLET DELAYED RELEASE 1 pill by m outh daily, for acid reflux PANTOPRAZOLE SODIUM 26334845948 Active Roseann Crawford Active AMOXICILLIN 875 MG ORAL TABLET 1 tab by mouth twice daily 1 AMOXICILLIN 04814057547 No Longer Active Brii Russ APRN Active ALPRAZOLAM 0.25 MG ORAL TABLET 1 tablet by mouth twice a day as needed for stress/anxiety ALPRAZOLAM 75108582193 Active KELLIE Escobar Active ESCITALOPRAM OXALATE 10 MG ORAL TABLET take 1 tab po qhs for mod 20 10/04/18 ESCITALOPRAM OXALATE 99315640786 Active Arie Casper MD Active TUSSIONEX PENNKINETIC ER 10-8 MG/5ML ORAL SUSPENSION E XTENDED RELEASE 5ml po q12hr PRN Cough HYDROCOD POLST-CHLORPHEN POLST 5 2423306867 No Longer Active Myrna Roberto MD Active ZITHROMAX Z-EMIL 250 MG TABS Take two tablets today and then 1 tablet daily for 4 days AZITHROMYCIN 46134588216 No Longer Active Flaco Rosales MD Active GUAIFENESIN DM 400-20 MG ORAL TABLET 1 pill by mouth t wice daily, if needed for cough DEXTROMETHORPHAN-GUAIFENESIN 89241011418 No Longer Active Rich Rosales MD Active CEFDINIR 300 MG ORAL CAPSULE 1 po BID x 10 days CEFDINIR 54797793180 No Longer Active Jillarlen Heaton APRN Active CHERATUSSIN AC 100-10 MG/5ML ORAL SYRUP 1 tsp by mouth every 4 hours as needed for cough GUAIFENESIN-CODEINE 22847510638 No Longe r Active Waynellina Florina [employer] Active TAMIFLU 75 MG ORAL CAPSULE 1 po BID x 5 days 0 OSELTAMIVIR PHOSPHATE 12660350445 No Longer Active Jose Zhong MD Activ e ZITHROMAX Z-EMIL 250 MG ORAL TABLET 2 today, then 1 daily for 4 d ays AZITHROMYCIN 06871903178 No Longer Active Arie Casper MD Active PROTONIX 40 MG ORAL TABLET DELAYED RELEASE 1 po q a.m. PANTOPRAZOLE SODIUM 15453561787 No Longer Active Arie Casper MD Active BACTRIM DS 800-160 MG ORAL TABLET 1 tab by mouth twice daily 201 05/02/30 TRIMETHOPRIM-SULFAMETHOXAZOLE 74149446736 No Longer Active [facility] Active NEXPLANON IMPLANT right arm subcutaneously ETONOGESTREL IMPL 29691057892 No Longer Active Brii Russ APRN Active TUSSIONEX PENNKINETIC ER 10-8 MG/5ML ORAL SUSPENSION E XTENDED RELEASE 5ml po q12hr PRN Cough HYDROCOD POLST-CHLORPHEN POLST 5 2968382671 No Longer Active Brii Russ APRN Active CETIRIZINE HCL 10 MG ORAL TABLET 1 po qd PRN Allergies CETIRIZINE HCL 55069020790 No Longer Active Brii Russ APRN Activ e PREDNISONE 20 MG ORAL TABLET 2 tabs daily for 3 days, 1 tab daily for 3 days, 1/2 tab daily for 2 days PREDNISONE 23505782848 No Longer Active Arie Casper MD Active LOMOTIL 2.5-0.025 MG ORAL TABLET 1 tab po four times a day as needed for diarrhea DIPHENOXYLATE-ATROPINE 74379965097 No Lo nger Active Arie Casper MD Active ZOLOFT 50 MG ORAL TABLET 1 tablet by mouth daily 12/08 SERTRALINE HCL 54943519944 No Longer Active Arie Casper MD Ac tive NAPROXEN 500 MG ORAL TABLET Take 1 tab BID NAPR OXEN 13884037524 No Longer Active Arie Casper MD Active CEFDINIR 300 MG ORAL CAPSULE 1 po BID x 10 days CEFDINIR 23724758464 No Longer Active Brii Russ APRN Active PREDNISONE 20 MG ORAL TABLET 1 tablet daily for airway inflammat ion PREDNISONE 02441983028 No Longer Active Brii Russ APRN A ctive CEFDINIR 300 MG ORAL CAPSULE 1 po BID x 10 days CEFDINIR 55625563472 No Longer Active Jono Gagnon DO Active FLONASE 50 MCG/ACT NASAL SUSPENSION 1 spray each nostr il twice daily for allergies and runny nose until gone FLUT ICASONE PROPIONATE 73111855464 No Longer Active Jono Gagnon DO Active ALPRAZOLAM 0.25 MG ORAL TABLET 1 tablet by mouth every 8 hours as needed for stress ALPRAZOLAM 02566086689 No Longer Active Jono Gagnon DO Active ZITHROMAX Z-EMIL 250 MG ORAL TABLET 2 today, then 1 daily for 4 d ays AZITHROMYCIN 30115699761 No Longer Active Arie Casper MD Active PREDNISONE 20 MG ORAL TABLET 2 tabs daily for 3 days, 1 tab daily for 3 days, 1/2 tab daily for 2 days PREDNISONE 76254340619 No Longer Active Brii Russ APRN Active PREDNISONE 20 MG ORAL TABLET 1 tablet twice daily for 2 days, then 1 tablet once daily for 2 days PREDNISONE 15605752015 No Longer Active Brii Russ APRN Active PROMETHAZINE HCL 12.5 MG ORAL TABLET 1 tablet by mouth every 6 hours as needed for nausea/vomiting PROMETHAZINE HCL 09865739837 No L onger Active Jono Gagnon DO Active CITRATE OF MAGNESIA ORAL SOLUTION 1 bottle today for constipatio n MAGNESIUM CITRATE 64061396534 No Longer Active Jono Gagnon DO Active ZOFRAN 4 MG ORAL TABLET 1 TAB PO Q 6 HRS PRN NAUSEA 07/10/15 ONDANSETRON HCL 70546363781 No Longer Active Brii Russ APRN Acti ve LOMOTIL 2.5-0.025 MG ORAL TABLET 1 to 2 four times a day as needed for diarrhea DIPHENOXYLATE-ATROPINE 00898270345 No Longer Active January Russ APRN Active AMOXICILLIN 500 MG ORAL TABLET 2 tabs twice a day for 10 days 20 07/09/11 AMOXICILLIN 94043669871 No Longer Active Brii Russ APRN Active CYCLOBENZAPRINE HCL 10 MG ORAL TABLET 1/2 - 1 tablet b y mouth three times daily as needed for muscle spasm/pain CYCLOBENZAPRINE HCL 16649148390 No Longer Active Arie Casper MD Active LOMOTIL 2.5-0.025 MG ORAL TABLET 1 to 2 four times a day as needed for diarrhea DIPHENOXYLATE-ATROPINE 81843540535 No Longer Active Fozia Casper MD Active MACROBID 100 MG ORAL CAPSULE 1 cap by mouth twice daily NITROFURANTOIN MONOHYD MACRO 01738468734 No Longer Active Arie Casper MD Active ZYRTEC ALLERGY 10 MG ORAL CAPSULE 1 po qd CE TIRIZINE HCL 79477385878 No Longer Active Arie Casper MD Active AZITHROMYCIN 250 MG ORAL TABLET 2 po qd x 1 day, then 1 po q d x 4 days AZITHROMYCIN 29942086966 No Longer Active Jillina Fra naomi [employer] Active PREDNISONE 20 MG ORAL TABLET 2 tabs daily for 3 days, 1 tab daily for 3 days, 1/2 tab daily for 2 days PREDNISONE 08803255034 No Longer Active Jillina Fradeepl [employer]ER Active PROMETHAZINE HCL 25 MG ORAL TABLET 1 four times a day as nee ded for vomiting PROMETHAZINE HCL 20460051179 No Longer Active Myrna Roberto MD Active BACTRIM DS 800-160 MG ORAL TABLET 1 twice a day 05/30 SULFAMETHOXAZOLE-TRIMETHOPRIM 67345547506 No Longer Active Myrna Roberto MD Active VICKS DAYQUIL SEVERE COLD/FLU TABLET 1 tab every 6 hours prn 201 02/22/17 [id number]-APAP TABS 82365567852 No Longer Active Chris Roberto MD Active GUAIFENESIN-CODEINE 100-10 MG/5ML ORAL SYRUP 2 tsp every 6 hours prn GUAIFENESIN-CODEINE 13631576374 No Longer Active Myrna Roberto MD Active NAPROXEN 500 MG ORAL TABLET one tab PO BID NAPR OXEN 30711210262 No Longer Active Myrna Roberto MD Active AUGMENTIN 875-125 MG ORAL TABLET 1 tab by mouth twice daily with food AMOXICILLIN-POT CLAVULANATE 02944528268 No Longer Act zaid Liliana Estrada MD PhD Active AMOXICILLIN 500 MG ORAL CAPSULE 1 tab by mouth 3 times daily 201 02/21/05 AMOXICILLIN 56817448903 No Longer Active Liliana Estrada MD PhD Active TESSALON PERLES 100 MG ORAL CAPSULE 1 tablet by mouth 3 times da cory BENZONATATE 15373053353 No Longer Active Liliana Estrada MD PhD Active FLAGYL 500 MG ORAL TABLET 1 tablet by mouth two times daily 2014 METRONIDAZOLE 80486018968 No Longer Active Nilam ida Ac tive ZITHROMAX 250 MG ORAL TABLET 2 po today, then 1 po q days 2-5 20 06/08/16 AZITHROMYCIN 16805740979 No Longer Active Arie Casper MD Active VITAMINS 0.8 MG ORAL TABLET take 1 tab po qday [id number]-[id number] 65297908834 No Longer Active Arie Casper MD Active IBUPROFEN 800 MG ORAL TABLET take one po Q 8 hours 201 02/01/16 IBUPROFEN 13071118222 No Longer Active Arie Casper MD Acti ve [facility] TUSSIN COUGH/COLD CF 5-10-100 MG/5ML ORAL LIQUID 2 teasp oons every 4 hours [id number] 84605327946 No Longer Active Blaine Casper MD Active COMTREX COLD/COUGH DAY/NITE MS 5-2-10-325 MG ORAL 2 caps deja ry 4 hours [id number]-RIZ-[id number]-APAP 79858317847 No Longer Active Da aleksandra Casper MD Active CHLORASEPTIC MAX SORE THROAT 15-10 MG MOUTH/THROAT LOZENGE 1 every 2 hours prn BENZOCAINE-MENTHOL 94902544338 No Longer Active Arie Casper MD Active PREDNISONE 20 MG ORAL TABLET 2 tabs daily for 3 days, 1 tab daily for 3 days, 1/2 tab daily for 2 days PREDNISONE 36101041906 No Longer Active Jose Zhong MD Active AZITHROMYCIN 250 MG ORAL TABLET 2 po qd x 1 day, then 1 po q d x 4 days AZITHROMYCIN 12199626024 No Longer Active Jose Mcwilliams MD Active ZOFRAN ODT 4 MG ORAL TABLET DISINTEGRATING 1 po q6hr PRN Nausea ONDANSETRON 58521465626 No Longer Active Rich Rosales MD Active ZOFRAN 4 MG ORAL TABLET 1 tablet every 4 hours ONDANSETRON HCL 26576741802 No Longer Active Rich Rosales MD Activ e MUCINEX 600 MG ORAL TABLET EXTENDED RELEASE 12 HOUR Ta ke 1-2 tablets every 12 hours GUAIFENESIN 89718559160 No Longer Active Rich Rosales MD Active BACTRIM 400-80 MG ORAL TABLET take one po BID SULFAMETHOXAZOLE-TRIMETHOPRIM 30632351498 No Longer Active Abelardo HERNANDEZ Active AZITHROMYCIN 500 MG ORAL TABLET 1 PO q day x 6 days 20 03/02/23 AZITHROMYCIN 62466238695 No Longer Active Tin HERNANDEZ Activ e ZITHROMAX 250 MG ORAL TABLET 2 po today, then 1 po q days 2-5 20 10/03/08 AZITHROMYCIN 50405195981 No Longer Active Arie Casper MD Active ZITHROMAX 250 MG ORAL TABLET 2 po today, then 1 po q days 2-5 20 09/23/25 AZITHROMYCIN 05124840968 No Longer Active Arie Casper MD Active AMOXICILLIN 500 MG ORAL CAPSULE 1 tab by mouth 3 times daily 201 11/24/09 AMOXICILLIN 05046275722 No Longer Active Arie Casper MD Active BACTRIM DS 800-160 MG ORAL TABLET 1 tab by mouth twice daily 201 11/03/14 TRIMETHOPRIM-SULFAMETHOXAZOLE 25620155148 No Longer Active Fozia Casper MD Active AMOXICILLIN 500 MG ORAL TABLET take 1 tab po TID 08/05 AMOXICILLIN 77407449255 No Longer Active Arie Casper MD Acti [...] 4 hours ZOFRAN 4 MG ORAL TABLET 018366 ONDANSETRON HCL Inactive ZOFRAN ODT 4 MG [...] COLD/COUGH DAY/NITE MS 5-2-10-325 MG ORA L [id number] Inactive [facility] TUSSIN COUGH/COLD CF 5-10-100 MG/5ML ORAL LIQUID 2 teasp oons every 4 hours [facility] TUSSIN COUGH/COLD CF 5-10-100 MG/5ML ORAL LI QUID [id number] Inactive IBUPROFEN 800 MG ORAL TABLET take one po Q 8 hours 201 02/01/16 IBUPROFEN 800 MG ORAL TABLET IBUPROFEN Inactive VITAMINS 0.8 MG ORAL TABLET take 1 tab po qday VITAMINS 0.8 MG ORAL TABLET [id number] E-FA Inactive TESSALON PERLES 100 MG ORAL CAPSULE 1 tablet by mouth 3 times da cory TESSALON PERLES 100 MG ORAL CAPSULE 130980 BENZONATATE Inactive AMOXICILLIN 500 MG ORAL CAPSULE 1 tab by mouth 3 times daily 201 02/21/05 AMOXICILLIN 500 MG ORAL CAPSULE 261478 AMOXICILLIN Inactive GUAIFENESIN-CODEINE 100-10 MG/5ML ORAL SYRUP 2 tsp every 6 hours prn GUAIFENESIN-CODEINE 100-10 MG/5ML ORAL SYRUP 571467 GUAIFENESIN-CODEINE Inactive VICKS DAYQUIL SEVERE COLD/FLU TABLET 1 tab every 6 hours prn 201 02/22/17 VICKS DAYQUIL SEVERE COLD/FLU TABLET PHENYLEPHRI [id number]-[id number]-APAP TABS Inactive BACTRIM DS 800-160 MG ORAL TABLET 1 twice a day 05/30 BACTRIM DS 800-160 MG ORAL TABLET 745633 SULFAMETHOXAZOLE-TRIMETHOPRIM Inactiv e PROMETHAZINE HCL 25 MG ORAL TABLET 1 four times a day as nee ded for vomiting PROMETHAZINE HCL 25 MG ORAL TABLET 684734 PROMETHAZINE HCL Inactive ZYRTEC ALLERGY 10 MG ORAL CAPSULE 1 po qd ZYRTEC ALLERGY 10 MG ORAL CAPSULE CETIRIZINE HCL Inactive MACROBID 100 MG ORAL CAPSULE 1 cap by mouth twice daily MACROBID 100 MG ORAL CAPSULE 9236324 NITROFURANTOIN MONOHYD MACRO In active LOMOTIL 2.5-0.025 MG ORAL TABLET 1 to 2 four times a day as needed for diarrhea LOMOTIL 2.5-0.025 MG ORAL TABLET 3315609 DIPHENOXYLATE-ATROPINE Inactive CYCLOBENZAPRINE HCL 10 MG ORAL TABLET 1/2 - 1 tablet b y mouth three times daily as needed for muscle spasm/pain CYCLOBEN ZAPRINE HCL 10 MG ORAL TABLET 926790 CYCLOBENZAPRINE HCL Inactive AMOXICILLIN 500 MG ORAL TABLET 2 tabs twice a day for 10 days 20 07/09/11 AMOXICILLIN 500 MG ORAL TABLET 314273 AMOXICILLIN I nactive LOMOTIL 2.5-0.025 MG ORAL TABLET 1 to 2 four times a day as needed for diarrhea LOMOTIL 2.5-0.025 MG ORAL TABLET 6347541 DIPHENOXYLATE-ATROPINE Inactive ZOFRAN 4 MG ORAL TABLET 1 TAB PO Q 6 HRS PRN NAUSEA 20 07/10/15 ZOFRAN 4 MG ORAL TABLET 641748 ONDANSETRON HCL Inactive CITRATE OF MAGNESIA ORAL SOLUTION 1 bottle today for constipatio n CITRATE OF MAGNESIA ORAL SOLUTION 2929515 MAGNESIUM CITR ATE Inactive PROMETHAZINE HCL 12.5 MG ORAL TABLET 1 tablet by mouth every 6 hours as needed for nausea/vomiting PROMETHAZINE HCL 12.5 MG ORA L TABLET 268304 PROMETHAZINE HCL Inactive PREDNISONE 20 MG ORAL TABLET 1 tablet twice daily for 2 days, then 1 tablet once daily for 2 days PREDNISONE 20 MG ORAL TABLET 393492 PREDNISONE Inactive ALPRAZOLAM 0.25 MG ORAL TABLET 1 tablet by mouth every 8 hours as needed for stress ALPRAZOLAM 0.25 MG ORAL TABLET 174375 ALPRA ZOLAM Inactive FLONASE 50 MCG/ACT NASAL SUSPENSION 1 spray each nostr il twice daily for allergies and runny nose until gone FLON ASE 50 MCG/ACT NASAL SUSPENSION 2566343 FLUTICASONE PROPIONATE Inactive PREDNISONE 20 MG ORAL TABLET 1 tablet daily for airway inflammat ion PREDNISONE 20 MG ORAL TABLET 201953 PREDNISONE [place] ctive NAPROXEN 500 MG ORAL TABLET Take 1 tab BID NAPROXEN 500 MG ORAL TABLET 105732 NAPROXEN Inactive ZOLOFT 50 MG ORAL TABLET 1 tablet by mouth daily 12/08 ZOLOFT 50 MG ORAL TABLET 427253 SERTRALINE HCL Inactive LOMOTIL 2.5-0.025 MG ORAL TABLET 1 tab po four times a day as needed for diarrhea LOMOTIL 2.5-0.025 MG ORAL TABLET 2350056 DIPHENOXYLATE-ATROPINE Inactive CETIRIZINE HCL 10 MG ORAL TABLET 1 po qd PRN Allergies CETIRIZINE HCL 10 MG ORAL TABLET 4275143 CETIRIZINE HCL Inactiv e TUSSIONEX PENNKINETIC ER 10-8 MG/5ML ORAL SUSPENSION E XTENDED RELEASE 5ml po q12hr PRN Cough TUSSIONEX PENNKINETI C ER 10-8 MG/5ML ORAL SUSPENSION EXTENDED RELEASE HYDROCOD POLST-CHLORPHEN POLST I nactive NEXPLANON IMPLANT right arm subcutaneously NEXPLANON IMPLANT ETONOGESTREL IMPL Inactive PROTONIX 40 MG ORAL TABLET DELAYED RELEASE 1 po q a.m. PROTONIX 40 MG ORAL TABLET DELAYED RELEASE 274139 PANTOPRAZOLE SODI UM Inactive CHERATUSSIN AC 100-10 MG/5ML ORAL SYRUP 1 tsp by mouth every 4 hours as needed for cough CHERATUSSIN AC 100-10 MG/5ML ORAL SYRUP 9 11246 GUAIFENESIN-CODEINE Inactive GUAIFENESIN DM 400-20 MG ORAL [...] tid K EFLEX 500 MG ORAL CAPSULE 282641 CEPHALEXIN Inactive AMOXICILLIN 500 MG ORAL TABLET take 1 tab po TID 08/05 AMOXICILLIN 500 MG ORAL TABLET 709143 AMOXICILLIN Inactive AMOXICILLIN 500 MG ORAL CAPSULE 1 tab by mouth 3 times daily 201 11/24/09 AMOXICILLIN 500 MG ORAL CAPSULE 075396 AMOXICILLIN Inactive ZITHROMAX 250 MG ORAL TABLET 2 po today, then 1 po q days 2-5 20 09/23/25 ZITHROMAX 250 MG ORAL TABLET 907845 AZITHROMYCIN [place] ctive ZITHROMAX 250 MG ORAL TABLET 2 po today, then 1 po q days 2-5 20 10/03/08 ZITHROMAX 250 MG ORAL TABLET 522197 AZITHROMYCIN [place] ctive AZITHROMYCIN 500 MG ORAL TABLET 1 PO q day x 6 days 20 03/02/23 AZITHROMYCIN 500 MG ORAL TABLET 4906460 AZITHROMYCIN Inactive BACTRIM 400-80 MG ORAL TABLET take one po BID BACTRIM 400- 80 MG ORAL TABLET 677381 SULFAMETHOXAZOLE-TRIMETHOPRIM Inactive AZITHROMYCIN 250 MG ORAL TABLET 2 po qd x 1 day, then 1 po q d x 4 days AZITHROMYCIN 250 MG ORAL TABLET 693595 AZITHROMY ALLISON Inactive PREDNISONE 20 MG ORAL TABLET 2 tabs daily for 3 days, 1 tab daily for 3 days, 1/2 tab daily for 2 days PREDNISONE 20 MG ORAL T ABLET 308600 PREDNISONE Inactive ZITHROMAX 250 MG ORAL TABLET 2 po today, then 1 po q days 2-5 20 06/08/16 ZITHROMAX 250 MG ORAL TABLET 881282 AZITHROMYCIN [place] ctive FLAGYL 500 MG ORAL TABLET 1 tablet by mouth two times daily 2014 FLAGYL 500 MG ORAL TABLET 592446 METRONIDAZOLE Inacti ve AUGMENTIN 875-125 MG ORAL TABLET 1 tab by mouth twice daily with food AUGMENTIN 875-125 MG ORAL TABLET 385403 AMOXICIL ELSA-POT CLAVULANATE Inactive NAPROXEN 500 MG ORAL TABLET one tab PO BID NAPROXEN 500 MG ORAL TABLET 459779 NAPROXEN Inactive PREDNISONE 20 MG ORAL TABLET 2 tabs daily for 3 days, 1 tab daily for 3 days, 1/2 tab daily for 2 days PREDNISONE 20 MG ORAL T ABLET 895582 PREDNISONE Inactive AZITHROMYCIN 250 MG ORAL TABLET 2 po qd x 1 day, then 1 po q d x 4 days AZITHROMYCIN 250 MG ORAL TABLET 976205 AZITHROMY ALLISON Inactive PREDNISONE 20 MG ORAL TABLET 2 tabs daily for 3 days, 1 tab daily for 3 days, 1/2 tab daily for 2 days PREDNISONE 20 MG ORAL T ABLET 122395 PREDNISONE Inactive ZITHROMAX Z-EMIL 250 MG ORAL TABLET 2 today, then 1 daily for 4 d ays ZITHROMAX Z-EMIL 250 MG ORAL TABLET 908570 AZITHROMYCIN Inactive CEFDINIR 300 MG ORAL CAPSULE [...] days PREDNISONE 20 MG ORAL T ABLET 201285 PREDNISONE Inactive BACTRIM DS 800-160 MG ORAL TABLET 1 tab by mouth twice daily 201 05/02/30 BACTRIM DS 800-160 MG ORAL TABLET 374397 TRIMETHOPRIM-SULFAMETHOXAZOLE Inactive ZITHROMAX Z-EMIL 250 MG ORAL TABLET 2 today, then 1 daily for 4 d ays ZITHROMAX Z-EMIL 250 MG ORAL TABLET 816636 AZITHROMYCIN Inactive TAMIFLU 75 MG ORAL CAPSULE 1 po BID x 5 days 0 TAMIFLU 75 MG ORAL CAPSULE 310934 OSELTAMIVIR PHOSPHATE Inactive CEFDINIR 300 MG ORAL CAPSULE 1 po BID x 10 days 2018/01/03 CEFDINIR 300 MG ORAL CAPSULE 135099 CEFDINIR Inactive ZITHROMAX Z-EMIL 250 MG TABS Take two tablets today and then 1 tablet daily for 4 days ZITHROMAX Z-EMIL 250 MG TABS 398971 AZITHROM YCIN Inactive AMOXICILLIN 875 MG ORAL TABLET 1 tab by mouth twice daily AMOXICILLIN 875 MG ORAL TABLET 214548 AMOXICILLIN Inactive Advance Directives Directive Description Start [...] 0.2 Encounters Code Encounter Date Provider Facility [facility]-91702 [id number] Vst-Est Level IV 13:45:[address] Tali Devi PA-C [facility]74634 [id number] Vst-Est Level III 09:41:31 CDT Arie Casper MD [facility]24891 [id number] Vst-Est Level III 18:20:11 CDT [facility]03315 [id number] Vst-Est Level III 17:21:41 CDT [facility]71941 [id number] Vst-Est Level IV 13:30:22 C NIC Casper MD [facility]47890 Level 4 Est. Patient 13:05:26 CDT Myrna maldonado MD [facility]06425 89443-Mix Vst-Est Level IV 20:50:21 C DT Arie Casper MD [facility]-92875 Level 3 Est. Patient 11:49:34 BUZZLE BUFFER Jessica boyd [facility]29067 Level 3 Est. Patient 14:55:50 BUZZLE BUFFER Jose Zhong MD [facility]57471 Level 3 Est. Patient 10:21:41 BUZZLE BUFFER Arie mcqueen MD [facility] CPT-52290 Level 3 Est. Patient 11:35:15 BUZZLE BUFFER Arie mcqueen MD [facility] CPT-91819 Level 3 Est. Patient 15:40:28 CDT Brii Are ll [facility] CPT-14122 Level 3 Est. Patient 16:40:36 CDT Arie mcqueen MD [facility] CPT-70793 Level 4 Est. Patient 15:29:22 BUZZLE BUFFER Arie mcqueen MD [facility] CPT-54200 Level 3 Est. Patient 15:18:16 BUZZLE BUFFER Jono black [facility] CPT-97774 Level 4 Est. Patient 12:08:40 BUZZLE BUFFER Brii Are ll [facility] CPT-66290 Level 3 Est. Patient 09:24:42 CDT Brii Are [facility] CPT-91605 Level 3 Est. Patient 09:12:56 CDT Arie mcqueen MD [facility] CPT-02388 Level 3 Est. Patient 16:40:54 CDT Jose Zhong MD [facility] CPT-83922 Level 2 Est. Patient 13:01:13 CDT Brii Are ll [facility] CPT-79901 Level 3 Est. Patient 11:55:30 BUZZLE BUFFER Jono black [facility] CPT-50831 Level 3 Est. Patient 09:52:36 BUZZLE BUFFER Brii Are ll [facility] CPT-49467 Level 3 Est. Patient 16:25:33 BUZZLE BUFFER Rich Rosales MD [facility] CPT-95565 Level 3 Est. Patient 20:33:55 CDT Arie mcqueen MD [facility] CPT-81840 Level 3 Est. Patient 14:18:20 CDT Rich Rosales MD [facility] CPT-44331 Level 4 Est. Patient 09:34:31 CDT Arie mcqueen MD [facility] CPT-92583 Level 3 Est. Patient 09:08:55 BUZZLE BUFFER Liliana vincent MD PhD [facility] CPT-87898 Level 3 Est. Patient 16:44:07 BUZZLE BUFFER Arie mcqueen MD [facility] CPT-60524 Level 3 Est. Patient 10:44:27 CDT Arie mcqueen MD [facility] CPT-30717 Level 3 Est. Patient 08:55:41 CDT Jose Zhong MD [facility] CPT-15653 Level 3 Est. Patient 18:37:31 CDT Liliana vincent MD PhD [facility] CPT-26940 Level 3 Est. Patient 14:28:23 CDT Abelardo HERNANDEZ [facility] CPT-79300 Level 3 Est. Patient 15:18:13 BUZZLE BUFFER Arie mcqueen MD [facility] CPT-84407 Level 3 Est. Patient 10:11:29 BUZZLE BUFFER Arie mcqueen MD [facility] CPT-78126 Level 3 Est. Patient 10:55:57 BUZZLE BUFFER Jono black DO [facility] CPT-02410 Level 3 Est. Patient 17:29:05 CDT Arie mcqueen MD [facility] Procedures Code Procedure Name Date Entry Date Standard Desc ription CPT-32580 First Vx - Ix admin via ID I M or jet injects without counseling by physician 13:00:15 BUZZLE BUFFER CPT-81138 Flulaval Intramuscular Injectable 13:00:15 BUZZLE BUFFER CPT-04258 Urine Dip (Floor Use Only) 12:20:20 BUZZLE BUFFER 201 06/03/24 CPT-38657 Sono Soft Tissue Head and Neck - XRAY US E ONLY 17:10:14 CDT CPT-02396 Ear Wash with irrigation 17:21:41 CDT 07/04 CPT-24791 Nexplanon Removal 15:40:28 CDT CPT-16233 Sono transvag pelvis non OB uterus ovari es cervix - XRAY USE ONLY 08:58:14 BUZZLE BUFFER CPT-55396 UA w micro - LAB USE ONLY 16:04:56 BUZZLE BUFFER 2015 CPT-93463 Wet Prep/GEN - LAB USE ONLY 16:04:56 BUZZLE BUFFER 20 08/10/29 CPT-51767 First Vx - Ix admin via ID I M or jet injects without counseling by physician 16:57:10 CDT CPT-64626 Fluzone Preservative Free Intramuscular Suspension 16:57:10 CDT CPT-J0696 Rocephin 1000 mg (Ceftriaxone) 11:49:23 CDT CPT-J1040 Depo Medrol 80 mg (Methyl Prednisolone A cetate) 11:49:23 CDT CPT-J1100 Decadron 8mg (Dexamethasone) 11:49:23 CDT 2 CPT-89306 Abx/Therapy Injection 11:49:23 CDT CPT-86496 Abx/Therapy Injection 11:49:23 CDT CPT-66849 Abd compl w upright 09:07:26 BUZZLE BUFFER CPT-72663 Ear Wash 16:12:47 BUZZLE BUFFER CPT-OV Office Visit 11:12:01 CDT CPT-OV Office Visit 15:30:23 CDT CPT-79021 Sono pelvis non OB uterus ovaries cervix 15:50:44 CDT CPT-00793 Hand comp min 3V 16:42:32 CDT CPT-89591 Abd compl w upright 12:17:01 CDT CPT-12247 Nexplanon Placement 15:07:39 BUZZLE BUFFER CPT-25878 Removal of IUD 15:07:39 BUZZLE BUFFER CPT-33727 TB Tubersol 12:09:32 CDT CPT-15075 TB Tubersol 13:55:43 CDT
--- OUTSIDE RECORDS SUMMARY | 2020-03-03 07:07 | XMS REPORT | Clinical Summary ---
Author Author Admin, Diamante Marcelo Organization [employer] Address Unknown Phone Unavailable Allergies, Adverse Reactions, [...] respiratory manifestations Sinusitis 473.9 Active Jessica Heaton TECHNICAL SERVICE REP Unspecified sinusitis (chronic) Other mixed anxiety 300.00 [...] Cerumen impaction, bilateral 380.4 Active Brii Russ TECHNICAL SERVICE REP Impacted cerumen Tonsillar enlargement 474.11 Active Brii Russ APRN Hypertrophy of tonsils alone Influenza Vaccination for Prophylaxis V04.81 Inactive Brii Russ TECHNICAL SERVICE REP Need for prophylactic vaccin ation and inoculation against influenza Submandibular lymph node 785.6 Active Brii Are ll TECHNICAL SERVICE REP Enlargement of lymph nodes Influenza Vaccination for Prophylaxis V04.81 Inactive Arie Casper MD Need for prophylactic vaccin ation and inoculation against influenza Influenza Vaccination for Prophylaxis V04.81 Active Tali Devi PA-C Need for prophylactic vaccin ation and inoculation against influenza Dysuria 788.1 Active Tali Devi PA-C Dysuria Pelvic pain, acute 789.09 Active Tali Devi PA-C Abdominal pain, other specified site; multiple sites Vaginal pruritus 698.1 Active Tali Rich Pruritus of genital organs BREAST CANCER ICD-V16.3 Inactive Jose Marcelo COLON [...] for Prophylaxis ICD-V04.81 8 Inactive Nilam Gus Medication List Medication Instructions Start Date Stop Date Generic Name NDC Status Provider Patient Instruction DIFLUCAN 100 MG ORAL TABLET 1 tablet by mouth daily, R EPEAT 2ND DOSE IN 7 DAYS IF STILL SYMPTOMATIC FLUCONAZOLE 14459066480 Active Nayana Devi PA-C Active KEFLEX 500 MG ORAL CAPSULE 1 po tid CEPHALEXI N 43526130906 No Longer Active Tali Devi PA-C Active CONCEPT DHA 53.5-38-1 MG ORAL CAPSULE 1 tablet daily [id number] 3 28929398085 Active Oxana Souza LPN Active PROTONIX 40 MG ORAL TABLET DELAYED RELEASE 1 pill by [facility] daily, for acid reflux PANTOPRAZOLE SODIUM 48239714324 Active Roseann Crawford Active AMOXICILLIN 875 MG ORAL TABLET 1 tab by mouth twice daily 1 AMOXICILLIN 93164122382 No Longer Active Brii Russ APRN Active ALPRAZOLAM 0.25 MG ORAL TABLET 1 tablet by mouth twice a day as needed for stress/anxiety ALPRAZOLAM 43027376252 Active KELLIE Escobar Active ESCITALOPRAM OXALATE 10 MG ORAL TABLET take 1 tab po qhs for mod 20 10/04/18 ESCITALOPRAM OXALATE 68518029958 Active Arie Casper MD Active TUSSIONEX PENNKINETIC ER 10-8 MG/5ML ORAL SUSPENSION E XTENDED RELEASE 5ml po q12hr PRN Cough HYDROCOD POLST-CHLORPHEN POLST 5 4230333168 No Longer Active Myrna Roberto MD Active ZITHROMAX Z-EMIL 250 MG TABS Take two tablets today and then 1 tablet daily for 4 days AZITHROMYCIN 54192008863 No Longer Active Flaco Rosales MD Active GUAIFENESIN DM 400-20 MG ORAL TABLET 1 pill by mouth t wice daily, if needed for cough DEXTROMETHORPHAN-GUAIFENESIN 38029736795 No Longer Active Rich Rosales MD Active CEFDINIR 300 MG ORAL CAPSULE 1 po BID x 10 days CEFDINIR 68597267420 No Longer Active Jessica Heaton APRN Active CHERATUSSIN AC 100-10 MG/5ML ORAL SYRUP 1 tsp by mouth every 4 hours as needed for cough GUAIFENESIN-CODEINE 17023347685 No Longe r Active Jessica Heaton APRN Active TAMIFLU 75 MG ORAL CAPSULE 1 po BID x 5 days 0 OSELTAMIVIR PHOSPHATE 09070413765 No Longer Active Jose Zhong MD Activ e ZITHROMAX Z-EMIL 250 MG ORAL TABLET 2 today, then 1 daily for 4 d ays AZITHROMYCIN 71212720010 No Longer Active Arie Casper MD Active PROTONIX 40 MG ORAL TABLET DELAYED RELEASE 1 po q a.m. PANTOPRAZOLE SODIUM 93235332422 No Longer Active Arie Casper MD Active BACTRIM DS 800-160 MG ORAL TABLET 1 tab by mouth twice daily 201 05/02/30 TRIMETHOPRIM-SULFAMETHOXAZOLE 00024840300 No Longer Active R bianca Crawford Active NEXPLANON IMPLANT right arm subcutaneously ETONOGESTREL IMPL 10830489277 No Longer Active Brii Arell TECHNICAL SERVICE REP Active TUSSIONEX PENNKINETIC ER 10-8 MG/5ML ORAL SUSPENSION E XTENDED RELEASE 5ml po q12hr PRN Cough HYDROCOD POLST-CHLORPHEN POLST 5 1833924831 No Longer Active Brii Russ TECHNICAL SERVICE REP Active CETIRIZINE HCL 10 MG ORAL TABLET 1 po qd PRN Allergies CETIRIZINE HCL 88687859120 No Longer Active Brii Russ TECHNICAL SERVICE REP Activ e PREDNISONE 20 MG ORAL TABLET 2 tabs daily for 3 days, 1 tab daily for 3 days, 1/2 tab daily for 2 days PREDNISONE 62124707987 No Longer Active Arie Casper MD Active LOMOTIL 2.5-0.025 MG ORAL TABLET 1 tab po four times a day as needed for diarrhea DIPHENOXYLATE-ATROPINE 70659944597 No Lo nger Active Arie Casper MD Active ZOLOFT 50 MG ORAL TABLET 1 tablet by mouth daily 12/08 SERTRALINE HCL 19786625167 No Longer Active Arie Casper MD Ac tive NAPROXEN 500 MG ORAL TABLET Take 1 tab BID NAPR OXEN 10164130506 No Longer Active Arie Casper MD Active CEFDINIR 300 MG ORAL CAPSULE 1 po BID x 10 days CEFDINIR 16614506652 No Longer Active Brii Russ APRN Active PREDNISONE 20 MG ORAL TABLET 1 tablet daily for airway inflammat ion PREDNISONE 34104101246 No Longer Active Brii Russ APRN A ctive CEFDINIR 300 MG ORAL CAPSULE 1 po BID x 10 days CEFDINIR 77820185107 No Longer Active Jono Gagnon DO Active FLONASE 50 MCG/ACT NASAL SUSPENSION 1 spray each nostr il twice daily for allergies and runny nose until gone FLUT ICASONE PROPIONATE 81643799928 No Longer Active Jono Gagnon DO Active ALPRAZOLAM 0.25 MG ORAL TABLET 1 tablet by mouth every 8 hours as needed for stress ALPRAZOLAM 94968712674 No Longer Active Jono Gagnon DO Active ZITHROMAX Z-EMIL 250 MG ORAL TABLET 2 today, then 1 daily for 4 d ays AZITHROMYCIN 17988527236 No Longer Active Arie Casper MD Active PREDNISONE 20 MG ORAL TABLET 2 tabs daily for 3 days, 1 tab daily for 3 days, 1/2 tab daily for 2 days PREDNISONE 01634137927 No Longer Active Brii Arell TECHNICAL SERVICE REP Active PREDNISONE 20 MG ORAL TABLET 1 tablet twice daily for 2 days, then 1 tablet once daily for 2 days PREDNISONE 20220276829 No Longer Active Brii Russ APRN Active PROMETHAZINE HCL 12.5 MG ORAL TABLET 1 tablet by mouth every 6 hours as needed for nausea/vomiting PROMETHAZINE HCL 30791442294 No L onger Active Jono Gagnon DO Active CITRATE OF MAGNESIA ORAL SOLUTION 1 bottle today for constipatio n MAGNESIUM CITRATE 89898247803 No Longer Active Jono Gagnon DO Active ZOFRAN 4 MG ORAL TABLET 1 TAB PO Q 6 HRS PRN NAUSEA 07/10/15 ONDANSETRON HCL 23406496398 No Longer Active Brii Russ APRN Acti ve LOMOTIL 2.5-0.025 MG ORAL TABLET 1 to 2 four times a day as needed for diarrhea DIPHENOXYLATE-ATROPINE 13687880859 No Longer Active Willa Russ APRN Active AMOXICILLIN 500 MG ORAL TABLET 2 tabs twice a day for 10 days 07/09/11 AMOXICILLIN 57753956109 No Longer Active Brii Areboris CABRERA Active CYCLOBENZAPRINE HCL 10 MG ORAL TABLET 1/2 - 1 tablet b y mouth three times daily as needed for muscle spasm/pain CYCLOBENZAPRINE HCL 62713191322 No Longer Active Arie Casper MD Active LOMOTIL 2.5-0.025 MG ORAL TABLET 1 to 2 four times a day as needed for diarrhea DIPHENOXYLATE-ATROPINE 39791239313 No Longer Active D freddy Casper MD Active MACROBID 100 MG ORAL CAPSULE 1 cap by mouth twice daily NITROFURANTOIN MONOHYD MACRO 64478570195 No Longer Active Arie Casper MD Active ZYRTEC ALLERGY 10 MG ORAL CAPSULE 1 po qd CE TIRIZINE HCL 54921964140 No Longer Active Arie Casper MD Active AZITHROMYCIN 250 MG ORAL TABLET 2 po qd x 1 day, then 1 po q d x 4 days AZITHROMYCIN 35736626825 No Longer Active Jillina Fra naomi TECHNICAL SERVICE REP Active PREDNISONE 20 MG ORAL TABLET 2 tabs daily for 3 days, 1 tab daily for 3 days, 1/2 tab daily for 2 days PREDNISONE 16794044754 No Longer Active Jillina Fradeepl TECHNICAL SERVICE REP Active PROMETHAZINE HCL 25 MG ORAL TABLET 1 four times a day as nee ded for vomiting PROMETHAZINE HCL 19250927800 No Longer Active Myrna Roberto MD Active BACTRIM DS 800-160 MG ORAL TABLET 1 twice a day 05/30 SULFAMETHOXAZOLE-TRIMETHOPRIM 05836133976 No Longer Active Myrna Roberto MD Active VICKS DAYQUIL SEVERE COLD/FLU TABLET 1 tab every 6 hours prn 201 02/22/17 [id number] TABS 94385738539 No Longer Active Chris Roberto MD Active GUAIFENESIN-CODEINE 100-10 MG/5ML ORAL SYRUP 2 tsp every 6 hours prn GUAIFENESIN-CODEINE 94799574331 No Longer Active Myrna Roberto MD Active NAPROXEN 500 MG ORAL TABLET one tab PO BID NAPR OXEN 65863666018 No Longer Active Myrna Roberto MD Active AUGMENTIN 875-125 MG ORAL TABLET 1 tab by mouth twice daily with food AMOXICILLIN-POT CLAVULANATE 82901451322 No Longer Act zaid Liliana C Madril MD PhD Active AMOXICILLIN 500 MG ORAL CAPSULE 1 tab by mouth 3 times daily 201 02/21/05 AMOXICILLIN 87735043311 No Longer Active Liliana Estrada MD PhD Active TESSALON PERLES 100 MG ORAL CAPSULE 1 tablet by mouth 3 times da cory BENZONATATE 56637982979 No Longer Active Liliana Estrada MD PhD Active FLAGYL 500 MG ORAL TABLET 1 tablet by mouth two times daily 2014 METRONIDAZOLE 65395555803 No Longer Active Nilamnory Plattkatie Ac tive ZITHROMAX 250 MG ORAL TABLET 2 po today, then 1 po q days 2-5 20 06/08/16 AZITHROMYCIN 09727902648 No Longer Active Arie Casper MD Active VITAMINS 0.8 MG ORAL TABLET take 1 tab po qday [id number] 10488200545 No Longer Active Arie Casper MD Active IBUPROFEN 800 MG ORAL TABLET take one po Q 8 hours 201 02/01/16 IBUPROFEN 01466701829 No Longer Active Arie Casper MD Acti ve [facility] TUSSIN COUGH/COLD CF 5-10-100 MG/5ML ORAL LIQUID 2 teasp oons every 4 hours [id number] 30136032519 No Longer Active Blaine Casper MD Active COMTREX COLD/COUGH DAY/NITE MS 5-2-10-325 MG ORAL 2 caps deja ry 4 hours [id number] 73674302971 No Longer Active Da aleksandra Casper MD Active CHLORASEPTIC MAX SORE THROAT 15-10 MG MOUTH/THROAT LOZENGE 1 every 2 hours prn BENZOCAINE-MENTHOL 10911556149 No Longer Active Arie Casper MD Active PREDNISONE 20 MG ORAL TABLET 2 tabs daily for 3 days, 1 tab daily for 3 days, 1/2 tab daily for 2 days PREDNISONE 02370519968 No Longer Active Jose Zhong MD Active AZITHROMYCIN 250 MG ORAL TABLET 2 po qd x 1 day, then 1 po q d x 4 days AZITHROMYCIN 88347539174 No Longer Active Jose Mcwilliams MD Active ZOFRAN ODT 4 MG ORAL TABLET DISINTEGRATING 1 po q6hr PRN Nausea ONDANSETRON 65411351279 No Longer Active Rich Rosales MD Active ZOFRAN 4 MG ORAL TABLET 1 tablet every 4 hours ONDANSETRON HCL 55408062128 No Longer Active Rich Rosales MD Activ e MUCINEX 600 MG ORAL TABLET EXTENDED RELEASE 12 HOUR Ta ke 1-2 tablets every 12 hours GUAIFENESIN 10590073070 No Longer Active Rich Rosales MD Active BACTRIM 400-80 MG ORAL TABLET take one po BID SULFAMETHOXAZOLE-TRIMETHOPRIM 69009561234 No Longer Active Abelardo HERNANDEZ Active AZITHROMYCIN 500 MG ORAL TABLET 1 PO q day x 6 days 20 03/02/23 AZITHROMYCIN 16930798018 No Longer Active Tin HERNANDEZ Activ e ZITHROMAX 250 MG ORAL TABLET 2 po today, then 1 po q days 2-5 20 10/03/08 AZITHROMYCIN 92787848167 No Longer Active Arie Casper MD Active ZITHROMAX 250 MG ORAL TABLET 2 po today, then 1 po q days 2-5 20 09/23/25 AZITHROMYCIN 15347975588 No Longer Active Arie Casper MD Active AMOXICILLIN 500 MG ORAL CAPSULE 1 tab by mouth 3 times daily 201 11/24/09 AMOXICILLIN 92220796234 No Longer Active Arie Casper MD Active BACTRIM DS 800-160 MG ORAL TABLET 1 tab by mouth twice daily 201 11/03/14 TRIMETHOPRIM-SULFAMETHOXAZOLE 27415729949 No Longer Active Fozia Casper MD Active AMOXICILLIN 500 MG ORAL TABLET take 1 tab po TID 08/05 AMOXICILLIN 62641561434 No Longer Active Arie Casper MD Acti [...] 4 hours ZOFRAN 4 MG ORAL TABLET 259768 ONDANSETRON HCL Inactive ZOFRAN ODT 4 MG ORAL TABLET DISINTEGRATING 1 po q6hr PRN Nausea ZOFRAN ODT 4 MG ORAL TABLET DISINTEGRATING 190868 ONDAN SETRON Inactive CHLORASEPTIC MAX SORE THROAT 15-10 MG MOUTH/THROAT LOZENGE 1 every 2 hours prn CHLORASEPTIC MAX SORE THROAT 15-10 MG MOUTH/THROAT LOZENGE BENZOCAINE-MENTHOL Inactive COMTREX COLD/COUGH DAY/NITE MS 5-2-10-325 MG ORAL 2 caps deja ry 4 hours COMTREX COLD/COUGH DAY/NITE MS 5-2-10-325 MG ORA L [id number] Inactive [facility] TUSSIN COUGH/COLD CF 5-10-100 MG/5ML ORAL LIQUID 2 teasp oons every 4 hours [facility] TUSSIN COUGH/COLD CF 5-10-100 MG/5ML ORAL LI QUID [id number] Inactive IBUPROFEN 800 MG ORAL TABLET take one po Q 8 hours 201 02/01/16 IBUPROFEN 800 MG ORAL TABLET IBUPROFEN Inactive VITAMINS 0.8 MG ORAL TABLET take 1 tab po qday VITAMINS 0.8 MG ORAL TABLET [id number] E-FA Inactive TESSALON PERLES 100 MG ORAL CAPSULE 1 tablet by mouth 3 times da cory TESSALON PERLES 100 MG ORAL CAPSULE 593607 BENZONATATE Inactive AMOXICILLIN 500 MG ORAL CAPSULE 1 tab by mouth 3 times daily 201 02/21/05 AMOXICILLIN 500 MG ORAL CAPSULE 135377 AMOXICILLIN Inactive GUAIFENESIN-CODEINE 100-10 MG/5ML ORAL SYRUP 2 tsp every 6 hours prn GUAIFENESIN-CODEINE 100-10 MG/5ML ORAL SYRUP 808091 GUAIFENESIN-CODEINE Inactive VICKS DAYQUIL SEVERE COLD/FLU TABLET 1 tab every 6 hours prn 201 02/22/17 VICKS DAYQUIL SEVERE COLD/FLU TABLET PHENYLEPHRI [id number]-[id number]-APAP TABS Inactive BACTRIM DS 800-160 MG ORAL TABLET 1 twice a day 05/30 BACTRIM DS 800-160 MG ORAL TABLET 417931 SULFAMETHOXAZOLE-TRIMETHOPRIM Inactiv e PROMETHAZINE HCL 25 MG ORAL TABLET 1 four times a day as nee ded for vomiting PROMETHAZINE HCL 25 MG ORAL TABLET 721345 PROMETHAZINE HCL Inactive ZYRTEC ALLERGY 10 MG ORAL CAPSULE 1 po qd ZYRTEC ALLERGY 10 MG ORAL CAPSULE CETIRIZINE HCL Inactive MACROBID 100 MG ORAL CAPSULE 1 cap by mouth twice daily MACROBID 100 MG ORAL CAPSULE 7828067 NITROFURANTOIN MONOHYD MACRO In active LOMOTIL 2.5-0.025 MG ORAL TABLET 1 to 2 four times a day as needed for diarrhea LOMOTIL 2.5-0.025 MG ORAL TABLET 9094382 DIPHENOXYLATE-ATROPINE Inactive CYCLOBENZAPRINE HCL 10 MG ORAL TABLET 1/2 - 1 tablet b y mouth three times daily as needed for muscle spasm/pain CYCLOBEN ZAPRINE HCL 10 MG ORAL TABLET 707909 CYCLOBENZAPRINE HCL Inactive AMOXICILLIN 500 MG ORAL TABLET 2 tabs twice a day for 10 days 20 07/09/11 AMOXICILLIN 500 MG ORAL TABLET 485166 AMOXICILLIN I nactive LOMOTIL 2.5-0.025 MG ORAL TABLET 1 to 2 four times a day as needed for diarrhea LOMOTIL 2.5-0.025 MG ORAL TABLET 0894816 DIPHENOXYLATE-ATROPINE Inactive ZOFRAN 4 MG ORAL TABLET 1 TAB PO Q 6 HRS PRN NAUSEA 20 07/10/15 ZOFRAN 4 MG ORAL TABLET 023291 ONDANSETRON HCL Inactive CITRATE OF MAGNESIA ORAL SOLUTION 1 bottle today for constipatio n CITRATE OF MAGNESIA ORAL SOLUTION 3673229 MAGNESIUM CITR ATE Inactive PROMETHAZINE HCL 12.5 MG ORAL TABLET 1 tablet by mouth every 6 hours as needed for nausea/vomiting PROMETHAZINE HCL 12.5 MG ORA L TABLET 667665 PROMETHAZINE HCL Inactive PREDNISONE 20 MG ORAL TABLET 1 tablet twice daily for 2 days, then 1 tablet once daily for 2 days PREDNISONE 20 MG ORAL TABLET 986641 PREDNISONE Inactive ALPRAZOLAM 0.25 MG ORAL TABLET 1 tablet by mouth every 8 hours as needed for stress ALPRAZOLAM 0.25 MG ORAL TABLET 185280 ALPRA ZOLAM Inactive FLONASE 50 MCG/ACT NASAL SUSPENSION 1 spray each nostr il twice daily for allergies and runny nose until gone FLON ASE 50 MCG/ACT NASAL SUSPENSION 0670181 FLUTICASONE PROPIONATE Inactive PREDNISONE 20 MG ORAL TABLET 1 tablet daily for airway inflammat ion PREDNISONE 20 MG ORAL TABLET 580796 PREDNISONE Arlen ctive NAPROXEN 500 MG ORAL TABLET Take 1 tab BID NAPROXEN 500 MG ORAL TABLET 944583 NAPROXEN Inactive ZOLOFT 50 MG ORAL TABLET 1 tablet by mouth daily 12/08 ZOLOFT 50 MG ORAL TABLET 438711 SERTRALINE HCL Inactive LOMOTIL 2.5-0.025 MG ORAL TABLET 1 tab po four times a day as needed for diarrhea LOMOTIL 2.5-0.025 MG ORAL TABLET 5715363 DIPHENOXYLATE-ATROPINE Inactive CETIRIZINE HCL 10 MG ORAL TABLET 1 po qd PRN Allergies CETIRIZINE HCL 10 MG ORAL TABLET 5988604 CETIRIZINE HCL Inactiv e TUSSIONEX PENNKINETIC ER 10-8 MG/5ML ORAL SUSPENSION E XTENDED RELEASE 5ml po q12hr PRN Cough TUSSIONEX PENNKINETI C ER 10-8 MG/5ML ORAL SUSPENSION EXTENDED RELEASE HYDROCOD POLST-CHLORPHEN POLST I nactive NEXPLANON IMPLANT right arm subcutaneously NEXPLANON IMPLANT ETONOGESTREL IMPL Inactive PROTONIX 40 MG ORAL TABLET DELAYED RELEASE 1 po q a.m. PROTONIX 40 MG ORAL TABLET DELAYED RELEASE 274735 PANTOPRAZOLE SODI UM Inactive CHERATUSSIN AC 100-10 MG/5ML ORAL SYRUP 1 tsp by mouth every 4 hours as needed for cough CHERATUSSIN AC 100-10 MG/5ML ORAL SYRUP 9 42422 GUAIFENESIN-CODEINE Inactive GUAIFENESIN DM 400-20 MG ORAL TABLET 1 pill by mouth t wice daily, if needed for cough GUAIFENESIN DM 400-20 MG ORAL TABLET 1143 294 DEXTROMETHORPHAN-GUAIFENESIN Inactive TUSSIONEX PENNKINETIC ER 10-8 MG/5ML ORAL SUSPENSION E XTENDED RELEASE 5ml po q12hr PRN Cough TUSSIONEX PENNKINETI C ER 10-8 MG/5ML ORAL SUSPENSION EXTENDED RELEASE HYDROCOD POLST-CHLORPHEN POLST I nactive KEFLEX 500 MG ORAL CAPSULE 1 po tid K EFLEX 500 MG ORAL CAPSULE 507062 CEPHALEXIN Inactive AMOXICILLIN 500 MG ORAL TABLET take 1 tab po TID 08/05 AMOXICILLIN 500 MG ORAL TABLET 953919 AMOXICILLIN Inactive AMOXICILLIN 500 MG ORAL CAPSULE 1 tab by mouth 3 times daily 201 11/24/09 AMOXICILLIN 500 MG ORAL CAPSULE 551338 AMOXICILLIN Inactive ZITHROMAX 250 MG ORAL TABLET 2 po today, then 1 po q days 2-5 20 09/23/25 ZITHROMAX 250 MG ORAL TABLET 193003 AZITHROMYCIN Semora ctive ZITHROMAX 250 MG ORAL TABLET 2 po today, then 1 po q days 2-5 20 10/03/08 ZITHROMAX 250 MG ORAL TABLET 198209 AZITHROMYCIN Arlen ctive AZITHROMYCIN 500 MG ORAL TABLET 1 PO q day x 6 days 03/02/23 AZITHROMYCIN 500 MG ORAL TABLET 1882403 AZITHROMYCIN Inactive BACTRIM 400-80 MG ORAL TABLET take one po BID BACTRIM 400- 80 MG ORAL TABLET 452349 SULFAMETHOXAZOLE-TRIMETHOPRIM Inactive AZITHROMYCIN 250 MG ORAL TABLET 2 po qd x 1 day, then 1 po q d x 4 days AZITHROMYCIN 250 MG ORAL TABLET 551325 AZITHROMY ALLISON Inactive PREDNISONE 20 MG ORAL TABLET 2 tabs daily for 3 days, 1 tab daily for 3 days, 1/2 tab daily for 2 days PREDNISONE 20 MG ORAL T ABLET 127085 PREDNISONE Inactive ZITHROMAX 250 MG ORAL TABLET 2 po today, then 1 po q days 2-5 20 06/08/16 ZITHROMAX 250 MG ORAL TABLET 375909 AZITHROMYCIN Arlen ctive FLAGYL 500 MG ORAL TABLET 1 tablet by mouth two times daily 2014 FLAGYL 500 MG ORAL TABLET 556585 METRONIDAZOLE Inacti ve AUGMENTIN 875-125 MG ORAL TABLET 1 tab by mouth twice daily with food AUGMENTIN 875-125 MG ORAL TABLET 813567 AMOXICIL ELSA-POT CLAVULANATE Inactive NAPROXEN 500 MG ORAL TABLET one tab PO BID NAPROXEN 500 MG ORAL TABLET 643598 NAPROXEN Inactive PREDNISONE 20 MG ORAL TABLET 2 tabs daily for 3 days, 1 tab daily for 3 days, 1/2 tab daily for 2 days PREDNISONE 20 MG ORAL T ABLET 330149 PREDNISONE Inactive AZITHROMYCIN 250 MG ORAL TABLET 2 po qd x 1 day, then 1 po q d x 4 days AZITHROMYCIN 250 MG ORAL TABLET 400363 AZITHROMY ALLISON Inactive PREDNISONE 20 MG ORAL TABLET 2 tabs daily for 3 days, 1 tab daily for 3 days, 1/2 tab daily for 2 days PREDNISONE 20 MG ORAL T ABLET 642551 PREDNISONE Inactive ZITHROMAX Z-EMIL 250 MG ORAL TABLET 2 today, then 1 daily for 4 d ays ZITHROMAX Z-EMIL 250 MG ORAL TABLET 480964 AZITHROMYCIN Inactive CEFDINIR 300 MG ORAL CAPSULE [...] days PREDNISONE 20 MG ORAL T ABLET 413562 PREDNISONE Inactive BACTRIM DS 800-160 MG ORAL TABLET 1 tab by mouth twice daily 201 05/02/30 BACTRIM DS 800-160 MG ORAL TABLET 265002 TRIMETHOPRIM-SULFAMETHOXAZOLE Inactive ZITHROMAX Z-EMIL 250 MG ORAL TABLET 2 today, then 1 daily for 4 d ays ZITHROMAX Z-EMIL 250 MG ORAL TABLET 346409 AZITHROMYCIN Inactive TAMIFLU 75 MG ORAL CAPSULE 1 po BID x 5 days 0 TAMIFLU 75 MG ORAL CAPSULE 621593 OSELTAMIVIR PHOSPHATE Inactive CEFDINIR 300 MG ORAL CAPSULE 1 po BID x 10 days 01/03 CEFDINIR 300 MG ORAL CAPSULE 613053 CEFDINIR Inactive ZITHROMAX Z-EMIL 250 MG TABS Take two tablets today and then 1 tablet daily for 4 days ZITHROMAX Z-EMIL 250 MG TABS 250976 AZITHROM YCIN Inactive AMOXICILLIN 875 MG ORAL TABLET 1 tab by mouth twice daily AMOXICILLIN 875 MG ORAL TABLET 915978 AMOXICILLIN Inactive Advance Directives Directive Description Start [...] gonadotropin , urine, qualitative (urine test) Negative Encounters Code Encounter Date Provider Facility CPT-21287 [id number] Vst-Est Level III 09:41:31 CDT Arie Casper MD [facility] CPT-39257 [id number] Vst-Est Level III 18:20:11 CDT Me lobito Russ [facility] CPT-01107 [id number] Vst-Est Level III 17:21:41 CDT Me lobito Rsus [facility] [place]-[address] [id number] Vst-Est Level IV 13:30:22 C DT Arie Casper MD [facility] CPT-00892 Level 4 Est. Patient 13:05:26 CDT Myrna maldonado MD [facility]-42253 65651-Srt Vst-Est Level IV 20:50:21 C DT Arie Casper MD [facility] CPT-52082 Level 3 Est. Patient 11:49:34 LIGHTING ENGINEER Jessica boyd [facility] CPT-68817 Level 3 Est. Patient 14:55:50 LIGHTING ENGINEER Jose Zhong MD [facility] CPT-20536 Level 3 Est. Patient 10:21:41 LIGHTING ENGINEER Arie mcqueen MD [facility] CPT-59008 Level 3 Est. Patient 11:35:15 LIGHTING ENGINEER Arie mcqueen MD [facility]-57308 Level 3 Est. Patient 15:40:28 CDT Brii Are ll [facility] CPT-98515 Level 3 Est. Patient 16:40:36 CDT Arie mcqueen MD [facility] CPT-50932 Level 4 Est. Patient 15:29:22 LIGHTING ENGINEER Arie mcqueen MD [facility] CPT-67298 Level 3 Est. Patient 15:18:16 LIGHTING ENGINEER Jono black [facility] CPT-40349 Level 4 Est. Patient 12:08:40 LIGHTING ENGINEER Brii Are ll [facility] CPT-28205 Level 3 Est. Patient 09:24:42 CDT Brii Are [facility] CPT-13697 Level 3 Est. Patient 09:12:56 CDT Arie mcqueen MD [facility] CPT-67184 Level 3 Est. Patient 16:40:54 CDT Jose Zhong MD [facility] CPT-95479 Level 2 Est. Patient 13:01:13 CDT Brii Are ll [facility] CPT-52964 Level 3 Est. Patient 11:55:30 LIGHTING ENGINEER Jono black [facility] CPT-01426 Level 3 Est. Patient 09:52:36 LIGHTING ENGINEER Brii Yepez boris PAREKHN [facility] CPT-94168 Level 3 Est. Patient 16:25:33 LIGHTING ENGINEER Rich Rosales MD [facility]-92329 Level 3 Est. Patient 20:33:55 CDT Arie mcqueen MD [facility]-18590 Level 3 Est. Patient 14:18:20 CDT Rich Rosales MD [facility]-86641 Level 4 Est. Patient 09:34:31 CDT Arie mcqueen MD [facility]-30630 Level 3 Est. Patient 09:08:55 LIGHTING ENGINEER Liliana vincent MD [facility]-62514 Level 3 Est. Patient 16:44:07 LIGHTING ENGINEER Arie mcqueen MD [facility]-71619 Level 3 Est. Patient 10:44:27 CDT Arie mcqueen MD [facility] CPT-06370 Level 3 Est. Patient 08:55:41 CDT Jose Zhong MD [facility]-12280 Level 3 Est. Patient 18:37:31 CDT Liliana vincent MD PhD [facility]-95400 Level 3 Est. Patient 14:28:23 CDT Abelardo HERNANDEZ [facility]-43854 Level 3 Est. Patient 15:18:13 LIGHTING ENGINEER Arie mcqueen MD [facility]-73493 Level 3 Est. Patient 10:11:29 LIGHTING ENGINEER Arie mcqueen MD [facility]-78878 Level 3 Est. Patient 10:55:57 LIGHTING ENGINEER Jono black DO [facility] CPT-23199 Level 3 Est. Patient 17:29:05 CDT Arie mcqueen MD [facility] Procedures Code Procedure Name Date Entry Date Standard Desc ription CPT-90679 First Vx - Ix admin via ID I M or jet injects without counseling by physician 13:00:15 LIGHTING ENGINEER CPT-43130 Flulaval Intramuscular Injectable 13:00:15 LIGHTING ENGINEER CPT-66105 Urine Dip (Floor Use Only) 12:20:20 LIGHTING ENGINEER 201 06/03/24 CPT-18968 Sono Soft Tissue Head and Neck - XRAY US E ONLY 17:10:14 CDT CPT-10361 Ear Wash with irrigation 17:21:41 CDT 07/04 CPT-60513 Nexplanon Removal 15:40:28 CDT CPT-91562 Sono transvag pelvis non OB uterus ovari es cervix - XRAY USE ONLY 08:58:14 LIGHTING ENGINEER CPT-96378 UA w micro - LAB USE ONLY 16:04:56 LIGHTING ENGINEER 2015 CPT-76100 Wet Prep/GEN - LAB USE ONLY 16:04:56 LIGHTING ENGINEER 20 08/10/29 CPT-54303 First Vx - Ix admin via ID I M or jet injects without counseling by physician 16:57:10 CDT CPT-04928 Fluzone Preservative Free Intramuscular Suspension 16:57:10 CDT CPT-J0696 Rocephin 1000 mg (Ceftriaxone) 11:49:23 CDT CPT-J1040 Depo Medrol 80 mg (Methyl Prednisolone A cetate) 11:49:23 CDT CPT-J1100 Decadron 8mg (Dexamethasone) 11:49:23 CDT 2 CPT-21573 Abx/Therapy Injection 11:49:23 CDT CPT-89226 Abx/Therapy Injection 11:49:23 CDT CPT-40865 Abd compl w upright 09:07:26 LIGHTING ENGINEER CPT-38585 Ear Wash 16:12:47 LIGHTING ENGINEER CPT-OV Office Visit 11:12:01 CDT CPT-OV Office Visit 15:30:23 CDT CPT-72953 Sono pelvis non OB uterus ovaries cervix 15:50:44 CDT CPT-64125 Hand comp min 3V 16:42:32 CDT CPT-79597 Abd compl w upright 12:17:01 CDT CPT-28514 Nexplanon Placement 15:07:39 LIGHTING ENGINEER CPT-50064 Removal of IUD 15: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
--- OUTSIDE RECORDS SUMMARY | 2020-03-03 07:07 | XMS REPORT | Clinical Summary ---
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 Enlargement of lymph nodes Influenza Vaccination for Prophylaxis V04.81 Inactive Arie Casper MD Need for prophylactic vaccin ation and inoculation against influenza COLON CANCER ICD-V16.0 Inactive Jose Zhong MD DIABETES ICD-V18.0 Inactive Jose Zhong MD 201 01/29/08 BREAST CANCER ICD-V16.3 Inactive Jose Marcelo SINUSITIS ICD-473.9 Inactive Liliana Estrada MD Ph D IUD removal ICD-V25.42 Inactive Liliana Estrada MD PhD ACUTE FRONTAL SINUSITIS ICD-461.1 Inactive Meghan Estrada MD PhD Diarrhea ICD-787.91 Inactive Jose [...] for Prophylaxis ICD-V04.81 8 Inactive Nilam Weber Urinary frequency ICD-788.41 Inactive Jose Zhong MD Medication List Medication Instructions Start Date Stop Date Generic Name NDC Status Provider Patient Instruction CONCEPT DHA 53.5-38-1 MG ORAL CAPSULE 1 tablet daily [id number]-OMEGA 3 57721970621 Active Oxana Souza LPN Active KEFLEX 500 MG ORAL CAPSULE 1 po tid CEPHALEXIN 224270 01127 Active Brii Russ APRN Active PROTONIX 40 MG ORAL TABLET DELAYED RELEASE 1 pill by willa camarena daily, for acid reflux PANTOPRAZOLE SODIUM 47553261751 Active Roseann Crawford Active AMOXICILLIN 875 MG ORAL TABLET 1 tab by mouth twice daily 1 AMOXICILLIN 27666231191 No Longer Active Brii Russ APRN Active ALPRAZOLAM 0.25 MG ORAL TABLET 1 tablet by mouth twice a day as needed for stress/anxiety ALPRAZOLAM 74621330210 Active KELLIE Escobar Active ESCITALOPRAM OXALATE 10 MG ORAL TABLET take 1 tab po qhs for mod 20 10/04/18 ESCITALOPRAM OXALATE 14286796932 Active Arie Casper MD Active TUSSIONEX PENNKINETIC ER 10-8 MG/5ML ORAL SUSPENSION E XTENDED RELEASE 5ml po q12hr PRN Cough HYDROCOD POLST-CHLORPHEN POLST 5 3157283654 No Longer Active Myrna Roberto MD Active ZITHROMAX Z-EMIL 250 MG TABS Take two tablets today and then 1 tablet daily for 4 days AZITHROMYCIN 10043712814 No Longer Active Flaco Rosales MD Active GUAIFENESIN DM 400-20 MG ORAL TABLET 1 pill by mouth t wice daily, if needed for cough DEXTROMETHORPHAN-GUAIFENESIN 77896037419 No Longer Active Rich Rosales MD Active CEFDINIR 300 MG ORAL CAPSULE 1 po BID x 10 days CEFDINIR 99385763258 No Longer Active Jessica Heaton APRN Active CHERATUSSIN AC 100-10 MG/5ML ORAL SYRUP 1 tsp by mouth every 4 hours as needed for cough GUAIFENESIN-CODEINE 40870341380 No Longe r Active Jessica Heaton APRN Active TAMIFLU 75 MG ORAL CAPSULE 1 po BID x 5 days 0 OSELTAMIVIR PHOSPHATE 49406197548 No Longer Active Jose Zhong MD Activ e ZITHROMAX Z-EMIL 250 MG ORAL TABLET 2 today, then 1 daily for 4 d ays AZITHROMYCIN 63344041549 No Longer Active Arie Casper MD Active PROTONIX 40 MG ORAL TABLET DELAYED RELEASE 1 po q a.m. 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 CETIRIZINE HCL 10 MG ORAL TABLET 1 po qd PRN Allergies CETIRIZINE HCL 93616716401 No Longer Active Brii Arell DELI DEPARTMENT MANAGER Activ e PREDNISONE 20 MG ORAL TABLET 2 tabs daily for 3 days, 1 tab daily for 3 days, 1/2 tab daily for 2 days PREDNISONE 19254634226 No Longer Active Arie Casper MD Active LOMOTIL 2.5-0.025 MG ORAL TABLET 1 tab po four times a day as needed for diarrhea DIPHENOXYLATE-ATROPINE 50891014914 No Lo nger Active Arie Casper MD Active ZOLOFT 50 MG ORAL TABLET 1 tablet by mouth daily 12/08 SERTRALINE HCL 80084737212 No Longer Active Arie Casper MD Ac tive NAPROXEN 500 MG ORAL TABLET Take 1 tab BID NAPR OXEN 61194212425 No Longer Active Arie Casper MD Active CEFDINIR 300 MG ORAL CAPSULE 1 po BID x 10 days CEFDINIR 19422827147 No Longer Active Brii Russ APRN Active PREDNISONE 20 MG ORAL TABLET 1 tablet daily for airway inflammat ion PREDNISONE 39546187032 No Longer Active Brii Russ APRN A ctive CEFDINIR 300 MG ORAL CAPSULE 1 po BID x 10 days CEFDINIR 99428606789 No Longer Active Jono Gagnon DO Active FLONASE 50 MCG/ACT NASAL SUSPENSION 1 spray each nostr il twice daily for allergies and runny nose until gone FLUT ICASONE PROPIONATE 61547971558 No Longer Active Jono Gagnon DO Active ALPRAZOLAM 0.25 MG ORAL TABLET 1 tablet by mouth every 8 hours as needed for stress ALPRAZOLAM 17553440815 No Longer Active Jono Gagnon DO Active ZITHROMAX Z-EMIL 250 MG ORAL TABLET 2 today, then 1 daily for 4 d ays AZITHROMYCIN 68290058147 No Longer Active Arie Casper MD Active PREDNISONE 20 MG ORAL TABLET 2 tabs daily for 3 days, 1 tab daily for 3 days, 1/2 tab daily for 2 days PREDNISONE 41394739013 No Longer Active Brii Russ APRN Active PREDNISONE 20 MG ORAL TABLET 1 tablet twice daily for 2 days, then 1 tablet once daily for 2 days PREDNISONE 18691275900 No Longer Active Brii Russ APRN Active PROMETHAZINE HCL 12.5 MG ORAL TABLET 1 tablet by mouth every 6 hours as needed for nausea/vomiting PROMETHAZINE HCL 57985516307 No L onger Active Jono Gagnon DO Active CITRATE OF MAGNESIA ORAL SOLUTION 1 bottle today for constipatio n MAGNESIUM CITRATE 17598449624 No Longer Active Jono Gagnon DO Active ZOFRAN 4 MG ORAL TABLET 1 TAB PO Q 6 HRS PRN NAUSEA 07/10/15 ONDANSETRON HCL 14795044406 No Longer Active Brii Russ APRN Acti ve LOMOTIL 2.5-0.025 MG ORAL TABLET 1 to 2 four times a day as needed for diarrhea DIPHENOXYLATE-ATROPINE 16628005181 No Longer Active Willa Russ APRN Active AMOXICILLIN 500 MG ORAL TABLET 2 tabs twice a day for 10 days 07/09/11 AMOXICILLIN 51089356408 No Longer Active Brii Russ APRN Active CYCLOBENZAPRINE HCL 10 MG ORAL TABLET 1/2 - 1 tablet b y mouth three times daily as needed for muscle spasm/pain CYCLOBENZAPRINE HCL 03787896613 No Longer Active Arie Casper MD Active LOMOTIL 2.5-0.025 MG ORAL TABLET 1 to 2 four times a day as needed for diarrhea DIPHENOXYLATE-ATROPINE 33600765702 No Longer Active Fozia Casper MD Active MACROBID 100 MG ORAL CAPSULE 1 cap by mouth twice daily NITROFURANTOIN MONOHYD MACRO 43204456133 No Longer Active Arie Casper MD Active ZYRTEC ALLERGY 10 MG ORAL CAPSULE 1 po qd CE TIRIZINE HCL 18673479529 No Longer Active Arie Casper MD Active AZITHROMYCIN 250 MG ORAL TABLET 2 po qd x 1 day, then 1 po q d x 4 days AZITHROMYCIN 55544356224 No Longer Active Jessica salgado APRN Active PREDNISONE 20 MG ORAL TABLET 2 tabs daily for 3 days, 1 tab daily for 3 days, 1/2 tab daily for 2 days PREDNISONE 11603608358 No Longer Active Jessica Heaton APRN Active PROMETHAZINE HCL 25 MG ORAL TABLET 1 four times a day as nee ded for vomiting PROMETHAZINE HCL 91730007907 No Longer Active Myrna Roberto MD Active BACTRIM DS 800-160 MG ORAL TABLET 1 twice a day 05/30 SULFAMETHOXAZOLE-TRIMETHOPRIM 67760964058 No Longer Active Myrna Roberto MD Active VICKS DAYQUIL SEVERE COLD/FLU TABLET 1 tab every 6 hours prn 201 02/22/17 [id number]-APAP TABS 22616545446 No Longer Active Chris Roberto MD Active GUAIFENESIN-CODEINE 100-10 MG/5ML ORAL SYRUP 2 tsp every 6 hours prn GUAIFENESIN-CODEINE 43337085705 No Longer Active Myrna Roberto MD Active NAPROXEN 500 MG ORAL TABLET one tab PO BID NAPR OXEN 16202951058 No Longer Active Myrna Roberto MD Active AUGMENTIN 875-125 MG ORAL TABLET 1 tab by mouth twice daily with food AMOXICILLIN-POT CLAVULANATE 44510370034 No Longer Act zaid Liliana Estrada MD PhD Active AMOXICILLIN 500 MG ORAL CAPSULE 1 tab by mouth 3 times daily 201 02/21/05 AMOXICILLIN 54843065052 No Longer Active Liliana Estrada MD PhD Active TESSALON PERLES 100 MG ORAL CAPSULE 1 tablet by mouth 3 times da cory BENZONATATE 21159550896 No Longer Active Liliana Estrada MD PhD Active FLAGYL 500 MG ORAL TABLET 1 tablet by mouth two times daily 2014 METRONIDAZOLE 50318373443 No Longer Active Nilam Doran tive ZITHROMAX 250 MG ORAL TABLET 2 po today, then 1 po q days 2-5 20 06/08/16 AZITHROMYCIN 55675707117 No Longer Active Arie Casper MD Active VITAMINS 0.8 MG ORAL TABLET take 1 tab po qday [id number] 64895482519 No Longer Active Arie Casper MD Active IBUPROFEN 800 MG ORAL TABLET take one po Q 8 hours 201 02/01/16 IBUPROFEN 65148823564 No Longer Active Arie Casper MD Acti ve [facility] TUSSIN COUGH/COLD CF 5-10-100 MG/5ML ORAL LIQUID 2 teasp oons every 4 hours [id number] 28472612383 No Longer Active Blaine Casper MD Active COMTREX COLD/COUGH DAY/NITE MS 5-2-10-325 MG ORAL 2 caps deja ry 4 hours [id number] 08863388227 No Longer Active Da aleksandra Casper MD Active CHLORASEPTIC MAX SORE THROAT 15-10 MG MOUTH/THROAT LOZENGE 1 every 2 hours prn BENZOCAINE-MENTHOL 88653446486 No Longer Active Arie Casper MD Active PREDNISONE 20 MG ORAL TABLET 2 tabs daily for 3 days, 1 tab daily for 3 days, 1/2 tab daily for 2 days PREDNISONE 55678724174 No Longer Active Jose Zhong MD Active AZITHROMYCIN 250 MG ORAL TABLET 2 po qd x 1 day, then 1 po q d x 4 days AZITHROMYCIN 24898532607 No Longer Active Jose Mcwilliams MD Active ZOFRAN ODT 4 MG ORAL TABLET DISINTEGRATING 1 po q6hr PRN Nausea ONDANSETRON 87931765109 No Longer Active Rich Rosales MD Active ZOFRAN 4 MG ORAL TABLET 1 tablet every 4 hours ONDANSETRON HCL 31149375257 No Longer Active Rich Rosales MD Activ e MUCINEX 600 MG ORAL TABLET EXTENDED RELEASE 12 HOUR Ta ke 1-2 tablets every 12 hours GUAIFENESIN 36713567341 No Longer Active Rich Rosales MD Active BACTRIM 400-80 MG ORAL TABLET take one po BID SULFAMETHOXAZOLE-TRIMETHOPRIM 56631746048 No Longer Active Abelardo HERNANDEZ Active AZITHROMYCIN 500 MG ORAL TABLET 1 PO q day x 6 days 20 03/02/23 AZITHROMYCIN 34034293988 No Longer Active Tin HERNANDEZ Activ e ZITHROMAX 250 MG ORAL TABLET 2 po today, then 1 po q days 2-5 20 10/03/08 AZITHROMYCIN 22302256820 No Longer Active Arie Casper MD Active ZITHROMAX 250 MG ORAL TABLET 2 po today, then 1 po q days 2-5 20 09/23/25 AZITHROMYCIN 70160740559 No Longer Active Arie Casper MD Active AMOXICILLIN 500 MG ORAL CAPSULE 1 tab by mouth 3 times daily 201 11/24/09 AMOXICILLIN 42632820275 No Longer Active Arie Casper MD Active BACTRIM DS 800-160 MG ORAL TABLET 1 tab by mouth twice daily 201 11/03/14 TRIMETHOPRIM-SULFAMETHOXAZOLE 82921399112 No Longer Active Fozia Casper MD Active AMOXICILLIN 500 MG ORAL TABLET take 1 tab po TID 08/05 AMOXICILLIN 06446099825 No Longer Active Aire Casper MD Acti ve BACTRIM DS 800-160 MG ORAL TABLET 1 tab by mouth twice daily 201 11/03/14 BACTRIM DS 800-160 MG ORAL TABLET 477200 TRIMETHOPRIM-SULFAMETHOXAZOLE Inactive MUCINEX 600 MG ORAL TABLET EXTENDED RELEASE 12 HOUR Ta ke 1-2 tablets every 12 hours MUCINEX 600 MG ORAL TABLET EXTENDED RELEA SE 12 HOUR GUAIFENESIN Inactive ZOFRAN 4 MG ORAL TABLET 1 tablet every 4 hours ZOFRAN 4 MG ORAL TABLET 419922 ONDANSETRON HCL Inactive ZOFRAN ODT 4 MG ORAL TABLET DISINTEGRATING 1 po q6hr PRN Nausea ZOFRAN ODT 4 MG ORAL TABLET DISINTEGRATING 087657 ONDAN SETRON Inactive CHLORASEPTIC MAX SORE THROAT 15-10 MG MOUTH/THROAT LOZENGE 1 every 2 hours prn CHLORASEPTIC MAX SORE THROAT 15-10 MG MOUTH/THROAT LOZENGE BENZOCAINE-MENTHOL Inactive COMTREX COLD/COUGH DAY/NITE MS 5-2-10-325 MG ORAL 2 caps deja ry 4 hours COMTREX COLD/COUGH DAY/NITE MS 5-2-10-325 MG ORA L [id number] Inactive [facility] TUSSIN COUGH/COLD CF 5-10-100 MG/5ML ORAL LIQUID 2 teasp oons every 4 hours [facility] TUSSIN COUGH/COLD CF 5-10-100 MG/5ML ORAL LI QUID [id number] Inactive IBUPROFEN 800 MG ORAL TABLET take one po Q 8 hours 201 02/01/16 IBUPROFEN 800 MG ORAL TABLET 061066 IBUPROFEN Inactive VITAMINS 0.8 MG ORAL TABLET take 1 tab po qday VITAMINS 0.8 MG ORAL TABLET [id number] E-FA Inactive TESSALON PERLES 100 MG ORAL CAPSULE 1 tablet by mouth 3 times da cory TESSALON PERLES 100 MG ORAL CAPSULE 874128 BENZONATATE Inactive AMOXICILLIN 500 MG ORAL CAPSULE 1 tab by mouth 3 times daily 201 02/21/05 AMOXICILLIN 500 MG ORAL CAPSULE 722909 AMOXICILLIN Inactive GUAIFENESIN-CODEINE 100-10 MG/5ML ORAL SYRUP 2 tsp every 6 hours prn GUAIFENESIN-CODEINE 100-10 MG/5ML ORAL SYRUP 010849 GUAIFENESIN-CODEINE Inactive VICKS DAYQUIL SEVERE COLD/FLU TABLET 1 tab every 6 hours prn 201 02/22/17 VICKS DAYQUIL SEVERE COLD/FLU TABLET PHENYLEPHRI VM-PI-EU-APAP TABS Inactive BACTRIM DS 800-160 MG ORAL TABLET 1 twice a day 05/30 BACTRIM DS 800-160 MG ORAL TABLET 243869 SULFAMETHOXAZOLE-TRIMETHOPRIM Inactiv e PROMETHAZINE HCL 25 MG ORAL TABLET 1 four times a day as nee ded for vomiting PROMETHAZINE HCL 25 MG ORAL TABLET 046306 PROMETHAZINE HCL Inactive ZYRTEC ALLERGY 10 MG ORAL CAPSULE 1 po qd ZYRTEC ALLERGY 10 MG ORAL CAPSULE CETIRIZINE HCL Inactive MACROBID 100 MG ORAL CAPSULE 1 cap by mouth twice daily MACROBID 100 MG ORAL CAPSULE 9502478 NITROFURANTOIN MONOHYD MACRO In active LOMOTIL 2.5-0.025 MG ORAL TABLET 1 to 2 four times a day as needed for diarrhea LOMOTIL 2.5-0.025 MG ORAL TABLET 3278162 DIPHENOXYLATE-ATROPINE Inactive CYCLOBENZAPRINE HCL 10 MG ORAL TABLET 1/2 - 1 tablet b y mouth three times daily as needed for muscle spasm/pain CYCLOBEN ZAPRINE HCL 10 MG ORAL TABLET 258132 CYCLOBENZAPRINE HCL Inactive AMOXICILLIN 500 MG ORAL TABLET 2 tabs twice a day for 10 days 20 07/09/11 AMOXICILLIN 500 MG ORAL TABLET 087568 AMOXICILLIN I nactive LOMOTIL 2.5-0.025 MG ORAL TABLET 1 to 2 four times a day as needed for diarrhea LOMOTIL 2.5-0.025 MG ORAL TABLET 7775340 DIPHENOXYLATE-ATROPINE Inactive ZOFRAN 4 MG ORAL TABLET 1 TAB PO Q 6 HRS PRN NAUSEA 20 07/10/15 ZOFRAN 4 MG ORAL TABLET 179644 ONDANSETRON HCL Inactive CITRATE OF MAGNESIA ORAL SOLUTION 1 bottle today for constipatio n CITRATE OF MAGNESIA ORAL SOLUTION 3525435 MAGNESIUM CITR ATE Inactive PROMETHAZINE HCL 12.5 MG ORAL TABLET 1 tablet by mouth every 6 hours as needed for nausea/vomiting PROMETHAZINE HCL 12.5 MG ORA L TABLET 910638 PROMETHAZINE HCL Inactive PREDNISONE 20 MG ORAL TABLET 1 tablet twice daily for 2 days, then 1 tablet once daily for 2 days PREDNISONE 20 MG ORAL TABLET 370650 PREDNISONE Inactive ALPRAZOLAM 0.25 MG ORAL TABLET 1 tablet by mouth every 8 hours as needed for stress ALPRAZOLAM 0.25 MG ORAL TABLET 939483 ALPRA ZOLAM Inactive FLONASE 50 MCG/ACT NASAL SUSPENSION 1 spray each nostr il twice daily for allergies and runny nose until gone FLON ASE 50 MCG/ACT NASAL SUSPENSION 0287542 FLUTICASONE PROPIONATE Inactive PREDNISONE 20 MG ORAL TABLET 1 tablet daily for airway inflammat ion PREDNISONE 20 MG ORAL TABLET 218767 PREDNISONE Struthers ctive NAPROXEN 500 MG ORAL TABLET Take 1 tab BID NAPROXEN 500 MG ORAL TABLET 329166 NAPROXEN Inactive ZOLOFT 50 MG ORAL TABLET 1 tablet by mouth daily 12/08 ZOLOFT 50 MG ORAL TABLET 399880 SERTRALINE HCL Inactive LOMOTIL 2.5-0.025 MG ORAL TABLET 1 tab po four times a day as needed for diarrhea LOMOTIL 2.5-0.025 MG ORAL TABLET 6556709 DIPHENOXYLATE-ATROPINE Inactive CETIRIZINE HCL 10 MG ORAL TABLET 1 po qd PRN Allergies CETIRIZINE HCL 10 MG ORAL TABLET 2716157 CETIRIZINE HCL Inactiv e TUSSIONEX PENNKINETIC ER 10-8 MG/5ML ORAL SUSPENSION E XTENDED RELEASE 5ml po q12hr PRN Cough TUSSIONEX PENNKINETI C ER 10-8 MG/5ML ORAL SUSPENSION EXTENDED RELEASE HYDROCOD POLST-CHLORPHEN POLST I nactive NEXPLANON IMPLANT right arm subcutaneously NEXPLANON IMPLANT ETONOGESTREL IMPL Inactive PROTONIX 40 MG ORAL TABLET DELAYED RELEASE 1 po q a.m. PROTONIX 40 MG ORAL TABLET DELAYED RELEASE 223752 PANTOPRAZOLE SODI UM Inactive CHERATUSSIN AC 100-10 MG/5ML ORAL SYRUP 1 tsp by mouth every 4 hours as needed for cough CHERATUSSIN AC 100-10 MG/5ML ORAL SYRUP 9 00275 GUAIFENESIN-CODEINE Inactive GUAIFENESIN DM 400-20 MG ORAL TABLET 1 pill by mouth t wice daily, if needed for cough GUAIFENESIN DM 400-20 MG ORAL TABLET 1147 685 DEXTROMETHORPHAN-GUAIFENESIN Inactive TUSSIONEX PENNKINETIC ER 10-8 MG/5ML ORAL SUSPENSION E XTENDED RELEASE 5ml po q12hr PRN Cough TUSSIONEX PENNKINETI C ER 10-8 MG/5ML ORAL SUSPENSION EXTENDED RELEASE HYDROCOD POLST-CHLORPHEN POLST I nactive AMOXICILLIN 500 MG ORAL TABLET take 1 tab po TID 08/05 AMOXICILLIN 500 MG ORAL TABLET 722350 AMOXICILLIN Inactive AMOXICILLIN 500 MG ORAL CAPSULE 1 tab by mouth 3 times daily 201 11/24/09 AMOXICILLIN 500 MG ORAL CAPSULE 158351 AMOXICILLIN Inactive ZITHROMAX 250 MG ORAL TABLET 2 po today, then 1 po q days 2-5 20 09/23/25 ZITHROMAX 250 MG ORAL TABLET 747075 AZITHROMYCIN Arlen ctive ZITHROMAX 250 MG ORAL TABLET 2 po today, then 1 po q days 2-5 20 10/03/08 ZITHROMAX 250 MG ORAL TABLET 971348 AZITHROMYCIN Struthers ctive AZITHROMYCIN 500 MG ORAL TABLET 1 PO q day x 6 days 20 03/02/23 AZITHROMYCIN 500 MG ORAL TABLET 8472208 AZITHROMYCIN Inactive BACTRIM 400-80 MG ORAL TABLET take one po BID BACTRIM 400- 80 MG ORAL TABLET 939776 SULFAMETHOXAZOLE-TRIMETHOPRIM Inactive AZITHROMYCIN 250 MG ORAL TABLET 2 po qd x 1 day, then 1 po q d x 4 days AZITHROMYCIN 250 MG ORAL TABLET 732852 AZITHROMY ALLISON Inactive PREDNISONE 20 MG ORAL TABLET 2 tabs daily for 3 days, 1 tab daily for 3 days, 1/2 tab daily for 2 days PREDNISONE 20 MG ORAL T ABLET 860268 PREDNISONE Inactive ZITHROMAX 250 MG ORAL TABLET 2 po today, then 1 po q days 2-5 20 06/08/16 ZITHROMAX 250 MG ORAL TABLET 739683 AZITHROMYCIN Struthers ctive FLAGYL 500 MG ORAL TABLET 1 tablet by mouth two times daily 2014 FLAGYL 500 MG ORAL TABLET 812515 METRONIDAZOLE Inacti ve AUGMENTIN 875-125 MG ORAL TABLET 1 tab by mouth twice daily with food AUGMENTIN 875-125 MG ORAL TABLET 983845 AMOXICIL ELSA-POT CLAVULANATE Inactive NAPROXEN 500 MG ORAL TABLET one tab PO BID NAPROXEN 500 MG ORAL TABLET 278395 NAPROXEN Inactive PREDNISONE 20 MG ORAL TABLET 2 tabs daily for 3 days, 1 tab daily for 3 days, 1/2 tab daily for 2 days PREDNISONE 20 MG ORAL T ABLET 172633 PREDNISONE Inactive AZITHROMYCIN 250 MG ORAL TABLET 2 po qd x 1 day, then 1 po q d x 4 days AZITHROMYCIN 250 MG ORAL TABLET 406406 AZITHROMY ALLISON Inactive PREDNISONE 20 MG ORAL TABLET 2 tabs daily for 3 days, 1 tab daily for 3 days, 1/2 tab daily for 2 days PREDNISONE 20 MG ORAL T ABLET 971998 PREDNISONE Inactive ZITHROMAX Z-EMIL 250 MG ORAL TABLET 2 today, then 1 daily for 4 d ays ZITHROMAX Z-EMIL 250 MG ORAL TABLET 410126 AZITHROMYCIN Inactive CEFDINIR 300 MG ORAL CAPSULE 1 po BID x 10 days 12/18 CEFDINIR 300 MG ORAL CAPSULE 140543 CEFDINIR Inactive CEFDINIR 300 MG ORAL CAPSULE 1 po BID x 10 days CEFDINIR 300 MG ORAL CAPSULE 193309 CEFDINIR Inactive PREDNISONE 20 MG ORAL TABLET 2 tabs daily for 3 days, 1 tab daily for 3 days, 1/2 tab daily for 2 days PREDNISONE 20 MG ORAL T ABLET 673527 PREDNISONE Inactive BACTRIM DS 800-160 MG ORAL TABLET 1 tab by mouth twice daily 201 05/02/30 BACTRIM DS 800-160 MG ORAL TABLET 848931 TRIMETHOPRIM-SULFAMETHOXAZOLE Inactive ZITHROMAX Z-EMIL 250 MG ORAL TABLET 2 today, then 1 daily for 4 d ays ZITHROMAX Z-EMIL 250 MG ORAL TABLET 357590 AZITHROMYCIN Inactive TAMIFLU 75 MG ORAL CAPSULE 1 po BID x 5 days 0 TAMIFLU 75 MG ORAL CAPSULE 228487 OSELTAMIVIR PHOSPHATE Inactive CEFDINIR 300 MG ORAL CAPSULE 1 po BID x 10 days 01/03 CEFDINIR 300 MG ORAL CAPSULE 062745 CEFDINIR Inactive ZITHROMAX Z-EMIL 250 MG TABS Take two tablets today and then 1 tablet daily for 4 days ZITHROMAX Z-EMIL 250 MG TABS 916681 AZITHROM YCIN Inactive AMOXICILLIN 875 MG ORAL TABLET 1 tab by mouth twice daily AMOXICILLIN 875 MG ORAL TABLET 531217 AMOXICILLIN Inactive Advance Directives Directive Description Start [...] Negative Encounters Code Encounter Date Provider Facility [facility]-81782 [id number] Vst-Est Level III 09:41:31 CDT Arie Casper MD [facility]-76106 [id number] Vst-Est Level III 18:20:11 CDT Me lobito Yepezboris [facility]-55451 [id number] Vst-Est Level III 17:21:41 CDT Me lobito Russ [facility]-10505 11854-Hpj Vst-Est Level IV 13:30:22 C DT Arie Casper MD [facility] CPT-55636 Level 4 Est. Patient 13:05:26 CDT Myrna maldonado MD [facility]-98665 [id number] Vst-Est Level IV 20:50:21 C DT Arie Casper MD [facility] CPT-71067 Level 3 Est. Patient 11:49:34 CREAM CHEESE [employer]KER Jessica boyd [facility] [place] CPT-51920 Level 3 Est. Patient 14:55:50 CREAM CHEESE MAKER Jose Zhong MD [facility] CPT-19290 Level 3 Est. Patient 10:21:41 CREAM CHEESE MAKER Arie mcqueen MD [facility]-42511 Level 3 Est. Patient 11:35:15 CREAM CHEESE MAKER Arie mcqueen MD [facility] CPT-73228 Level 3 Est. Patient 15:40:28 CDT Brii escalante [facility] [place] CPT-98581 Level 3 Est. Patient 16:40:36 CDT Arie mcqueen MD [facility] CPT-51650 Level 4 Est. Patient 15:29:22 CREAM CHEESE MAKER Arie mcqueen MD [facility] CPT-91375 Level 3 Est. Patient 15:18:16 CREAM CHEESE MAKER Jono black [facility] CPT-90284 Level 4 Est. Patient 12:08:40 CREAM CHEESE MAKER Brii Are ll [facility] [place] CPT-94568 Level 3 Est. Patient 09:24:42 CDT Brii Are [facility] CPT-75246 Level 3 Est. Patient 09:12:56 CDT Arie mcqueen MD [facility]-37726 Level 3 Est. Patient 16:40:54 CDT Jose Zhong MD [facility] CPT-74396 Level 2 Est. Patient 13:01:13 CDT Brii Are ll [facility] [place] CPT-91169 Level 3 Est. Patient 11:55:30 CREAM CHEESE MAKER Jono black [facility] CPT-24534 Level 3 Est. Patient 09:52:36 CREAM CHEESE MAKER Brii Are ll [facility] [place] CPT-84591 Level 3 Est. Patient 16:25:33 CREAM CHEESE MAKER Rich Rosales MD [facility] CPT-39456 Level 3 Est. Patient 20:33:55 CDT Arie mcqueen MD [facility] CPT-39991 Level 3 Est. Patient 14:18:20 CDT Rich Rosales MD [facility] CPT-65932 Level 4 Est. Patient 09:34:31 CDT Arie mcqueen MD [facility]-54545 Level 3 Est. Patient 09:08:55 CREAM CHEESE MAKER Liliana vincent MD, PhD [facility] CPT-57161 Level 3 Est. Patient 16:44:07 CREAM CHEESE MAKER Arie mcqueen MD [facility] CPT-18146 Level 3 Est. Patient 10:44:27 CDT Arie mcqueen MD [facility] CPT-73125 Level 3 Est. Patient 08:55:41 CDT Jose Zhong MD [facility] CPT-78824 Level 3 Est. Patient 18:37:31 CDT Liliana vincent MD PhD [facility] CPT-23725 Level 3 Est. Patient 14:28:23 CDT Abelardo HERNANDEZ [facility] CPT-78530 Level 3 Est. Patient 15:18:13 CREAM CHEESE MAKER Arie mcqueen MD [facility] CPT-94340 Level 3 Est. Patient 10:11:29 CREAM CHEESE MAKER Arie mcqueen MD [facility] CPT-33534 Level 3 Est. Patient 10:55:57 CREAM CHEESE MAKER Jono black DO [facility] CPT-13067 Level 3 Est. Patient 17:29:05 CDT Arie mcqueen MD [facility] Procedures Code Procedure Name Date Entry Date Standard Desc ription CPT-89368 Urine Dip (Floor Use Only) 12:20:20 CREAM CHEESE MAKER 201 06/03/24 CPT-82063 Sono Soft Tissue Head and Neck - XRAY US E ONLY 17:10:14 CDT CPT-05098 Ear Wash with irrigation 17:21:41 CDT 07/04 CPT-95890 Nexplanon Removal 15:40:28 CDT CPT-87655 Sono transvag pelvis non OB uterus ovari es cervix - XRAY USE ONLY 08:58:14 [employer] CPT-27700 UA w micro - LAB USE ONLY 16:04:56 [employer] 2015 CPT-18840 Wet Prep/GEN - LAB USE ONLY 16:04:56 [employer] 20 08/10/29 CPT-24324 First Vx - Ix admin via ID I M or jet injects without counseling by physician 16:57:10 CDT CPT-78573 Fluzone Preservative Free Intramuscular Suspension 16:57:10 CDT CPT-J0696 Rocephin 1000 mg (Ceftriaxone) 11:49:23 CDT CPT-J1040 Depo Medrol 80 mg (Methyl Prednisolone A cetate) 11:49:23 CDT CPT-J1100 Decadron 8mg (Dexamethasone) 11:49:23 CDT 2 CPT-43956 Abx/Therapy Injection 11:49:23 CDT CPT-14179 Abx/Therapy Injection 11:49:23 CDT CPT-20165 Abd compl w upright 09:07:26 [employer] CPT-36809 Ear Wash 16:12:47 [employer] CPT-OV Office Visit 11:12:01 CDT CPT-OV Office Visit 15:30:23 CDT CPT-77321 Sono pelvis non OB uterus ovaries cervix 15:50:44 CDT CPT-79211 Hand comp min 3V 16:42:32 CDT CPT-72088 Abd compl w upright 12:17:01 CDT CPT-32255 Nexplanon Placement 15:07:39 [employer] CPT-59963 Removal of IUD 15:07:39 [employer] CPT-59717 TB Tubersol 12:09:32 CDT CPT-17202 TB Tubersol 13:55:43 CDT
--- OUTSIDE RECORDS SUMMARY | 2020-03-03 07:08 | XMS REPORT | Clinical Summary ---
Author Author Admin, Diamante Marcelo Organization [facility] Address Unknown Phone Unavailable Allergies, Adverse [...] with depression 300.4 Active Brii Ramirez l PHYSICIAN ALLERGIST IMMUNOLOGIST Dysthymic disorder URI 465.9 Active Jono Gagnon [...] lymph node 785.6 Active Brii Are ll PHYSICIAN ALLERGIST IMMUNOLOGIST Enlargement of lymph nodes Influenza Vaccination for Prophylaxis V04.81 Inactive Arie Casper MD Need for prophylactic vaccin ation and inoculation against influenza BREAST CANCER ICD-V16.3 Inactive Jose Marcelo FH [...] MD PhD Vaginal discharge ICD-623.5 Inactive Liliana lraes MD PhD Urinary frequency ICD-788.41 Inactive Jose Zhong MD Vaginal bleeding ICD-623.8 Inactive Jose Mcwilliams MD Influenza Vaccination for Prophylaxis ICD-V04.81 6 Inactive Carole HOPKINS Influenza Vaccination for Prophylaxis ICD-V04.81 8 Inactive Nilam Plattkatie Medication List Medication Instructions Start Date Stop Date Generic Name NDC Status Provider Patient Instruction CONCEPT DHA 53.5-38-1 MG ORAL CAPSULE 1 tablet daily [id number] 3 54082126985 Active Oxana Souza LPN Active KEFLEX 500 MG ORAL CAPSULE 1 po tid CEPHALEXIN 102510 37570 Active Brii Russ APRN Active PROTONIX 40 MG ORAL TABLET DELAYED RELEASE 1 pill by willa camarena daily, for acid reflux PANTOPRAZOLE SODIUM 99252829198 Active Roseann Crawford Active AMOXICILLIN 875 MG ORAL TABLET 1 tab by mouth twice daily AMOXICILLIN 70144372666 No Longer Active Brii Russ APRN Active ALPRAZOLAM 0.25 MG ORAL TABLET 1 tablet by mouth twice a day as needed for stress/anxiety ALPRAZOLAM 88202689131 Active KELLIE Escobar Active ESCITALOPRAM OXALATE 10 MG ORAL TABLET take 1 tab po qhs for mod 20 10/04/18 ESCITALOPRAM OXALATE 18649476268 Active Arie Casper MD Active TUSSIONEX PENNKINETIC ER 10-8 MG/5ML ORAL SUSPENSION E XTENDED RELEASE 5ml po q12hr PRN Cough HYDROCOD POLST-CHLORPHEN POLST 5 4447930013 No Longer Active Myrna Roberto MD Active ZITHROMAX Z-EMIL 250 MG TABS Take two tablets today and then 1 tablet daily for 4 days AZITHROMYCIN 09001440854 No Longer Active Flaco Rosales MD Active GUAIFENESIN DM 400-20 MG ORAL TABLET 1 pill by mouth t wice daily, if needed for cough DEXTROMETHORPHAN-GUAIFENESIN 31700890181 No Longer Active Rich Rosales MD Active CEFDINIR 300 MG ORAL CAPSULE 1 po BID x 10 days CEFDINIR 02213777794 No Longer Active Jessica Heaton APRN Active CHERATUSSIN AC 100-10 MG/5ML ORAL SYRUP 1 tsp by mouth every 4 hours as needed for cough GUAIFENESIN-CODEINE 43902948400 No Longe r Active Jessica Heaton APRN Active TAMIFLU 75 MG ORAL CAPSULE 1 po BID x 5 days 0 OSELTAMIVIR PHOSPHATE 76241992812 No Longer Active Jose Zhong MD Activ e ZITHROMAX Z-EMIL 250 MG ORAL TABLET 2 today, then 1 daily for 4 d ays AZITHROMYCIN 49888518671 No Longer Active Arie Casper MD Active PROTONIX 40 MG ORAL TABLET DELAYED RELEASE 1 po q a.m. PANTOPRAZOLE SODIUM 22191878549 No Longer Active Arie Casper MD Active BACTRIM DS 800-160 MG ORAL TABLET 1 tab by mouth twice daily 201 05/02/30 TRIMETHOPRIM-SULFAMETHOXAZOLE 99959540013 No Longer Active R [facility] Active NEXPLANON IMPLANT right arm subcutaneously ETONOGESTREL IMPL 82448269215 No Longer Active Brii Russ APRN Active TUSSIONEX PENNKINETIC ER 10-8 MG/5ML ORAL SUSPENSION E XTENDED RELEASE 5ml po q12hr PRN Cough HYDROCOD POLST-CHLORPHEN POLST 5 2464413240 No Longer Active Brii Arell PHYSICIAN ALLERGIST IMMUNOLOGIST Active CETIRIZINE HCL 10 MG ORAL TABLET 1 po qd PRN Allergies CETIRIZINE HCL 04471699086 No Longer Active Brii Arell PHYSICIAN ALLERGIST IMMUNOLOGIST Activ e PREDNISONE 20 MG ORAL TABLET 2 tabs daily for 3 days, 1 tab daily for 3 days, 1/2 tab daily for 2 days PREDNISONE 67182504748 No Longer Active Arie Casper MD Active LOMOTIL 2.5-0.025 MG ORAL TABLET 1 tab po four times a day as needed for diarrhea DIPHENOXYLATE-ATROPINE 33022296214 No Lo nger Active Arie Casper MD Active ZOLOFT 50 MG ORAL TABLET 1 tablet by mouth daily 12/08 SERTRALINE HCL 39655547196 No Longer Active Arie Casper MD Ac tive NAPROXEN 500 MG ORAL TABLET Take 1 tab BID NAPR OXEN 84404867555 No Longer Active Arie Casper MD Active CEFDINIR 300 MG ORAL CAPSULE 1 po BID x 10 days CEFDINIR 81243046385 No Longer Active Brii Russ APRN Active PREDNISONE 20 MG ORAL TABLET 1 tablet daily for airway inflammat ion PREDNISONE 47392697110 No Longer Active Brii Russ APRN A ctive CEFDINIR 300 MG ORAL CAPSULE 1 po BID x 10 days CEFDINIR 77101978453 No Longer Active Jono Gagnon DO Active FLONASE 50 MCG/ACT NASAL SUSPENSION 1 spray each nostr il twice daily for allergies and runny nose until gone FLUT ICASONE PROPIONATE 39476563128 No Longer Active Jono Gagnon DO Active ALPRAZOLAM 0.25 MG ORAL TABLET 1 tablet by mouth every 8 hours as needed for stress ALPRAZOLAM 74126987156 No Longer Active Jono Gagnon DO Active ZITHROMAX Z-EMIL 250 MG ORAL TABLET 2 today, then 1 daily for 4 d ays AZITHROMYCIN 23901018026 No Longer Active Arie Casper MD Active PREDNISONE 20 MG ORAL TABLET 2 tabs daily for 3 days, 1 tab daily for 3 days, 1/2 tab daily for 2 days PREDNISONE 91078529521 No Longer Active Brii Russ APRN Active PREDNISONE 20 MG ORAL TABLET 1 tablet twice daily for 2 days, then 1 tablet once daily for 2 days PREDNISONE 63619545770 No Longer Active Brii Russ APRN Active PROMETHAZINE HCL 12.5 MG ORAL TABLET 1 tablet by mouth every 6 hours as needed for nausea/vomiting PROMETHAZINE HCL 88645055342 No L onger Active Jono Gagnon DO Active CITRATE OF MAGNESIA ORAL SOLUTION 1 bottle today for constipatio n MAGNESIUM CITRATE 85293040462 No Longer Active Jono Gagnon DO Active ZOFRAN 4 MG ORAL TABLET 1 TAB PO Q 6 HRS PRN NAUSEA 07/10/15 ONDANSETRON HCL 40524172675 No Longer Active Brii Russ APRN Acti ve LOMOTIL 2.5-0.025 MG ORAL TABLET 1 to 2 four times a day as needed for diarrhea DIPHENOXYLATE-ATROPINE 64561570663 No Longer Active Willa Russ APRN Active AMOXICILLIN 500 MG ORAL TABLET 2 tabs twice a day for 10 days 07/09/11 AMOXICILLIN 26338088663 No Longer Active Brii Russ APRN Active CYCLOBENZAPRINE HCL 10 MG ORAL TABLET 1/2 - 1 tablet b y mouth three times daily as needed for muscle spasm/pain CYCLOBENZAPRINE HCL 59684132340 No Longer Active Arie Casper MD Active LOMOTIL 2.5-0.025 MG ORAL TABLET 1 to 2 four times a day as needed for diarrhea DIPHENOXYLATE-ATROPINE 91117046250 No Longer Active Fozia Casper MD Active MACROBID 100 MG ORAL CAPSULE 1 cap by mouth twice daily NITROFURANTOIN MONOHYD MACRO 97560518518 No Longer Active Arie Casper MD Active ZYRTEC ALLERGY 10 MG ORAL CAPSULE 1 po qd CE TIRIZINE HCL 31154781604 No Longer Active Arie Casper MD Active AZITHROMYCIN 250 MG ORAL TABLET 2 po qd x 1 day, then 1 po q d x 4 days AZITHROMYCIN 76318693533 No Longer Active Jessica salgado APRN Active PREDNISONE 20 MG ORAL TABLET 2 tabs daily for 3 days, 1 tab daily for 3 days, 1/2 tab daily for 2 days PREDNISONE 27459932564 No Longer Active Jessica Heaton APRN Active PROMETHAZINE HCL 25 MG ORAL TABLET 1 four times a day as nee ded for vomiting PROMETHAZINE HCL 55281074457 No Longer Active Myrna Roberto MD Active BACTRIM DS 800-160 MG ORAL TABLET 1 twice a day 05/30 SULFAMETHOXAZOLE-TRIMETHOPRIM 71137496866 No Longer Active Myrna Roberto MD Active VICKS DAYQUIL SEVERE COLD/FLU TABLET 1 tab every 6 hours prn 201 02/22/17 [id number] TABS 61672258650 No Longer Active Chris Roberto MD Active GUAIFENESIN-CODEINE 100-10 MG/5ML ORAL SYRUP 2 tsp every 6 hours prn GUAIFENESIN-CODEINE 37635326563 No Longer Active Myrna Roberto MD Active NAPROXEN 500 MG ORAL TABLET one tab PO BID NAPR OXEN 55556278765 No Longer Active Myrna Roberto MD Active AUGMENTIN 875-125 MG ORAL TABLET 1 tab by mouth twice daily with food AMOXICILLIN-POT CLAVULANATE 80131648888 No Longer Act zaid Liliana Estrada MD PhD Active AMOXICILLIN 500 MG ORAL CAPSULE 1 tab by mouth 3 times daily 201 02/21/05 AMOXICILLIN 19999290084 No Longer Active Liliana Estrada MD PhD Active TESSALON PERLES 100 MG ORAL CAPSULE 1 tablet by mouth 3 times da cory BENZONATATE 32394827358 No Longer Active Liliana Estrada MD PhD Active FLAGYL 500 MG ORAL TABLET 1 tablet by mouth two times daily 2014 METRONIDAZOLE 54870119872 No Longer Active Nilam Doran tive ZITHROMAX 250 MG ORAL TABLET 2 po today, then 1 po q days 2-5 20 06/08/16 AZITHROMYCIN 01176356851 No Longer Active Arie Casper MD Active VITAMINS 0.8 MG ORAL TABLET take 1 tab po qday [id number]-[id number]-FA 33932281635 No Longer Active Arie Casper MD Active IBUPROFEN 800 MG ORAL TABLET take one po Q 8 hours 201 02/01/16 IBUPROFEN 32261696848 No Longer Active Arie Casper MD Acti ve [facility] TUSSIN COUGH/COLD CF 5-10-100 MG/5ML ORAL LIQUID 2 teasp oons every 4 hours [id number] 81436572164 No Longer Active Blaine Casper MD Active COMTREX COLD/COUGH DAY/NITE MS 5-2-10-325 MG ORAL 2 caps deja ry 4 hours [id number] 84280929526 No Longer Active Da aleksandra Casper MD Active CHLORASEPTIC MAX SORE THROAT 15-10 MG MOUTH/THROAT LOZENGE 1 every 2 hours prn BENZOCAINE-MENTHOL 59406882175 No Longer Active Arie Casper MD Active PREDNISONE 20 MG ORAL TABLET 2 tabs daily for 3 days, 1 tab daily for 3 days, 1/2 tab daily for 2 days PREDNISONE 49760222901 No Longer Active Jose Zhong MD Active AZITHROMYCIN 250 MG ORAL TABLET 2 po qd x 1 day, then 1 po q d x 4 days AZITHROMYCIN 27669009627 No Longer Active Jose Mcwilliams MD Active ZOFRAN ODT 4 MG ORAL TABLET DISINTEGRATING 1 po q6hr PRN Nausea ONDANSETRON 80932399435 No Longer Active Rich Rosales MD Active ZOFRAN 4 MG ORAL TABLET 1 tablet every 4 hours ONDANSETRON HCL 54225030392 No Longer Active Rich Rosales MD Activ e MUCINEX 600 MG ORAL TABLET EXTENDED RELEASE 12 HOUR Ta ke 1-2 tablets every 12 hours GUAIFENESIN 55432423970 No Longer Active Rich Rosales MD Active BACTRIM 400-80 MG ORAL TABLET take one po BID SULFAMETHOXAZOLE-TRIMETHOPRIM 33640693387 No Longer Active Abelardo HERNANDEZ Active AZITHROMYCIN 500 MG ORAL TABLET 1 PO q day x 6 days 20 03/02/23 AZITHROMYCIN 05153899203 No Longer Active Tin HERNANDEZ Activ e ZITHROMAX 250 MG ORAL TABLET 2 po today, then 1 po q days 2-5 20 10/03/08 AZITHROMYCIN 26182920909 No Longer Active Arie Casper MD Active ZITHROMAX 250 MG ORAL TABLET 2 po today, then 1 po q days 2-5 20 09/23/25 AZITHROMYCIN 98017562553 No Longer Active Arie Casper MD Active AMOXICILLIN 500 MG ORAL CAPSULE 1 tab by mouth 3 times daily 201 11/24/09 AMOXICILLIN 52892006462 No Longer Active Arie Casper MD Active BACTRIM DS 800-160 MG ORAL TABLET 1 tab by mouth twice daily 201 11/03/14 TRIMETHOPRIM-SULFAMETHOXAZOLE 16633835365 No Longer Active Fozia Casper MD Active AMOXICILLIN 500 MG ORAL TABLET take 1 tab po TID 08/05 AMOXICILLIN 80700103297 No Longer Active Arie Casper MD Acti ve BACTRIM DS 800-160 MG ORAL TABLET 1 tab by mouth twice daily 201 11/03/14 BACTRIM DS 800-160 MG ORAL TABLET 223187 TRIMETHOPRIM-SULFAMETHOXAZOLE Inactive MUCINEX 600 MG ORAL TABLET EXTENDED RELEASE 12 HOUR Ta ke 1-2 tablets every 12 hours MUCINEX 600 MG ORAL TABLET EXTENDED RELEA SE 12 HOUR GUAIFENESIN Inactive ZOFRAN 4 MG ORAL TABLET 1 tablet every 4 hours ZOFRAN 4 MG ORAL TABLET 222130 ONDANSETRON HCL Inactive ZOFRAN ODT 4 MG ORAL TABLET DISINTEGRATING 1 po q6hr PRN Nausea ZOFRAN ODT 4 MG ORAL TABLET DISINTEGRATING 907035 ONDAN SETRON Inactive CHLORASEPTIC MAX SORE THROAT 15-10 MG MOUTH/THROAT LOZENGE 1 every 2 hours prn CHLORASEPTIC MAX SORE THROAT 15-10 MG MOUTH/THROAT LOZENGE BENZOCAINE-MENTHOL Inactive COMTREX COLD/COUGH DAY/NITE MS 5-2-10-325 MG ORAL 2 caps deja ry 4 hours COMTREX COLD/COUGH DAY/NITE MS 5-2-10-325 MG ORA L [id number] Inactive [facility] TUSSIN COUGH/COLD CF 5-10-100 MG/5ML ORAL LIQUID 2 teasp oons every 4 hours [facility] TUSSIN COUGH/COLD CF 5-10-100 MG/5ML ORAL LI QUID [id number] Inactive IBUPROFEN 800 MG ORAL TABLET take one po Q 8 hours 201 02/01/16 IBUPROFEN 800 MG ORAL TABLET 619902 IBUPROFEN Inactive VITAMINS 0.8 MG ORAL TABLET take 1 tab po qday VITAMINS 0.8 MG ORAL TABLET [id number] E-FA Inactive TESSALON PERLES 100 MG ORAL CAPSULE 1 tablet by mouth 3 times da cory TESSALON PERLES 100 MG ORAL CAPSULE 719723 BENZONATATE Inactive AMOXICILLIN 500 MG ORAL CAPSULE 1 tab by mouth 3 times daily 201 02/21/05 AMOXICILLIN 500 MG ORAL CAPSULE 308128 AMOXICILLIN Inactive GUAIFENESIN-CODEINE 100-10 MG/5ML ORAL SYRUP 2 tsp every 6 hours prn GUAIFENESIN-CODEINE 100-10 MG/5ML ORAL SYRUP 793541 GUAIFENESIN-CODEINE Inactive VICKS DAYQUIL SEVERE COLD/FLU TABLET 1 tab every 6 hours prn 201 02/22/17 VICKS DAYQUIL SEVERE COLD/FLU TABLET PHENYLEPHRI [id number]-HN-OP-APAP TABS Inactive BACTRIM DS 800-160 MG ORAL TABLET 1 twice a day 05/30 BACTRIM DS 800-160 MG ORAL TABLET 746291 SULFAMETHOXAZOLE-TRIMETHOPRIM Inactiv e PROMETHAZINE HCL 25 MG ORAL TABLET 1 four times a day as nee ded for vomiting PROMETHAZINE HCL 25 MG ORAL TABLET 157373 PROMETHAZINE HCL Inactive ZYRTEC ALLERGY 10 MG ORAL CAPSULE 1 po qd ZYRTEC ALLERGY 10 MG ORAL CAPSULE CETIRIZINE HCL Inactive MACROBID 100 MG ORAL CAPSULE 1 cap by mouth twice daily MACROBID 100 MG ORAL CAPSULE 3780791 NITROFURANTOIN MONOHYD MACRO In active LOMOTIL 2.5-0.025 MG ORAL TABLET 1 to 2 four times a day as needed for diarrhea LOMOTIL 2.5-0.025 MG ORAL TABLET 1029302 DIPHENOXYLATE-ATROPINE Inactive CYCLOBENZAPRINE HCL 10 MG ORAL TABLET 1/2 - 1 tablet b y mouth three times daily as needed for muscle spasm/pain CYCLOBEN ZAPRINE HCL 10 MG ORAL TABLET 996222 CYCLOBENZAPRINE HCL Inactive AMOXICILLIN 500 MG ORAL TABLET 2 tabs twice a day for 10 days 20 07/09/11 AMOXICILLIN 500 MG ORAL TABLET 650024 AMOXICILLIN I nactive LOMOTIL 2.5-0.025 MG ORAL TABLET 1 to 2 four times a day as needed for diarrhea LOMOTIL 2.5-0.025 MG ORAL TABLET 6585309 DIPHENOXYLATE-ATROPINE Inactive ZOFRAN 4 MG ORAL TABLET 1 TAB PO Q 6 HRS PRN NAUSEA 20 07/10/15 ZOFRAN 4 MG ORAL TABLET 824893 ONDANSETRON HCL Inactive CITRATE OF MAGNESIA ORAL SOLUTION 1 bottle today for constipatio n CITRATE OF MAGNESIA ORAL SOLUTION 1860068 MAGNESIUM CITR ATE Inactive PROMETHAZINE HCL 12.5 MG ORAL TABLET 1 tablet by mouth every 6 hours as needed for nausea/vomiting PROMETHAZINE HCL 12.5 MG ORA L TABLET 731943 PROMETHAZINE HCL Inactive PREDNISONE 20 MG ORAL TABLET 1 tablet twice daily for 2 days, then 1 tablet once daily for 2 days PREDNISONE 20 MG ORAL TABLET 761430 PREDNISONE Inactive ALPRAZOLAM 0.25 MG ORAL TABLET 1 tablet by mouth every 8 hours as needed for stress ALPRAZOLAM 0.25 MG ORAL TABLET 868163 ALPRA ZOLAM Inactive FLONASE 50 MCG/ACT NASAL SUSPENSION 1 spray each nostr il twice daily for allergies and runny nose until gone FLON ASE 50 MCG/ACT NASAL SUSPENSION 7805510 FLUTICASONE PROPIONATE Inactive PREDNISONE 20 MG ORAL TABLET 1 tablet daily for airway inflammat ion PREDNISONE 20 MG ORAL TABLET 452259 PREDNISONE [place] ctive NAPROXEN 500 MG ORAL TABLET Take 1 tab BID NAPROXEN 500 MG ORAL TABLET 708822 NAPROXEN Inactive ZOLOFT 50 MG ORAL TABLET 1 tablet by mouth daily 12/08 ZOLOFT 50 MG ORAL TABLET 700357 SERTRALINE HCL Inactive LOMOTIL 2.5-0.025 MG ORAL TABLET 1 tab po four times a day as needed for diarrhea LOMOTIL 2.5-0.025 MG ORAL TABLET 1805165 DIPHENOXYLATE-ATROPINE Inactive CETIRIZINE HCL 10 MG ORAL TABLET 1 po qd PRN Allergies CETIRIZINE HCL 10 MG ORAL TABLET 4740406 CETIRIZINE HCL Inactiv e TUSSIONEX PENNKINETIC ER 10-8 MG/5ML ORAL SUSPENSION E XTENDED RELEASE 5ml po q12hr PRN Cough TUSSIONEX PENNKINETI C ER 10-8 MG/5ML ORAL SUSPENSION EXTENDED RELEASE HYDROCOD POLST-CHLORPHEN POLST I nactive NEXPLANON IMPLANT right arm subcutaneously NEXPLANON IMPLANT ETONOGESTREL IMPL Inactive PROTONIX 40 MG ORAL TABLET DELAYED RELEASE 1 po q a.m. PROTONIX 40 MG ORAL TABLET DELAYED RELEASE 701264 PANTOPRAZOLE SODI UM Inactive CHERATUSSIN AC 100-10 MG/5ML ORAL SYRUP 1 tsp by mouth every 4 hours as needed for cough CHERATUSSIN AC 100-10 MG/5ML ORAL SYRUP 9 73942 GUAIFENESIN-CODEINE Inactive GUAIFENESIN DM 400-20 MG ORAL [...] TID 08/05 AMOXICILLIN 500 MG ORAL TABLET 901066 AMOXICILLIN Inactive AMOXICILLIN 500 MG ORAL CAPSULE 1 tab by mouth 3 times daily 201 11/24/09 AMOXICILLIN 500 MG ORAL CAPSULE 128270 AMOXICILLIN Inactive ZITHROMAX 250 MG ORAL TABLET 2 po today, then 1 po q days 2-5 20 09/23/25 ZITHROMAX 250 MG ORAL TABLET 300257 AZITHROMYCIN Arlen ctive ZITHROMAX 250 MG ORAL TABLET 2 po today, then 1 po q days 2-5 20 10/03/08 ZITHROMAX 250 MG ORAL TABLET 543191 AZITHROMYCIN [place] ctive AZITHROMYCIN 500 MG ORAL TABLET 1 PO q day x 6 days 20 03/02/23 AZITHROMYCIN 500 MG ORAL TABLET 4028046 AZITHROMYCIN Inactive BACTRIM 400-80 MG ORAL TABLET take one po BID BACTRIM 400- 80 MG ORAL TABLET 859323 SULFAMETHOXAZOLE-TRIMETHOPRIM Inactive AZITHROMYCIN 250 MG ORAL TABLET 2 po qd x 1 day, then 1 po q d x 4 days AZITHROMYCIN 250 MG ORAL TABLET 549915 AZITHROMY ALLISON Inactive PREDNISONE 20 MG ORAL TABLET 2 tabs daily for 3 days, 1 tab daily for 3 days, 1/2 tab daily for 2 days PREDNISONE 20 MG ORAL T ABLET 014730 PREDNISONE Inactive ZITHROMAX 250 MG ORAL TABLET 2 po today, then 1 po q days 2-5 20 06/08/16 ZITHROMAX 250 MG ORAL TABLET 430153 AZITHROMYCIN [place] ctive FLAGYL 500 MG ORAL TABLET 1 tablet by mouth two times daily 2014 FLAGYL 500 MG ORAL TABLET 249833 METRONIDAZOLE Inacti ve AUGMENTIN 875-125 MG ORAL TABLET 1 tab by mouth twice daily with food AUGMENTIN 875-125 MG ORAL TABLET 248599 AMOXICIL ELSA-POT CLAVULANATE Inactive NAPROXEN 500 MG ORAL TABLET one tab PO BID NAPROXEN 500 MG ORAL TABLET 721190 NAPROXEN Inactive PREDNISONE 20 MG ORAL TABLET 2 tabs daily for 3 days, 1 tab daily for 3 days, 1/2 tab daily for 2 days PREDNISONE 20 MG ORAL T ABLET 862741 PREDNISONE Inactive AZITHROMYCIN 250 MG ORAL TABLET 2 po qd x 1 day, then 1 po q d x 4 days AZITHROMYCIN 250 MG ORAL TABLET 396722 AZITHROMY ALLISON Inactive PREDNISONE 20 MG ORAL TABLET 2 tabs daily for 3 days, 1 tab daily for 3 days, 1/2 tab daily for 2 days PREDNISONE 20 MG ORAL T ABLET 562117 PREDNISONE Inactive ZITHROMAX Z-EMIL 250 MG ORAL TABLET 2 today, then 1 daily for 4 d ays ZITHROMAX Z-EMIL 250 MG ORAL TABLET 040832 AZITHROMYCIN Inactive CEFDINIR 300 MG ORAL CAPSULE 1 po BID x 10 days 12/18 CEFDINIR 300 MG ORAL CAPSULE 269093 CEFDINIR Inactive CEFDINIR 300 MG ORAL CAPSULE 1 po BID x 10 days CEFDINIR 300 MG ORAL CAPSULE 996985 CEFDINIR Inactive PREDNISONE 20 MG ORAL TABLET 2 tabs daily for 3 days, 1 tab daily for 3 days, 1/2 tab daily for 2 days PREDNISONE 20 MG ORAL T ABLET 637022 PREDNISONE Inactive BACTRIM DS 800-160 MG ORAL TABLET 1 tab by mouth twice daily 201 05/02/30 BACTRIM DS 800-160 MG ORAL TABLET 081282 TRIMETHOPRIM-SULFAMETHOXAZOLE Inactive ZITHROMAX Z-EMIL 250 MG ORAL TABLET 2 today, then 1 daily for 4 d ays ZITHROMAX Z-EMIL 250 MG ORAL TABLET 308262 AZITHROMYCIN Inactive TAMIFLU 75 MG ORAL CAPSULE 1 po BID x 5 days 0 TAMIFLU 75 MG ORAL CAPSULE 042336 OSELTAMIVIR PHOSPHATE Inactive CEFDINIR 300 MG ORAL CAPSULE 1 po BID x 10 days 01/03 CEFDINIR 300 MG ORAL CAPSULE 939199 CEFDINIR Inactive ZITHROMAX Z-EMIL 250 MG TABS Take two tablets today and then 1 tablet daily for 4 days ZITHROMAX Z-EMIL 250 MG TABS 882828 AZITHROM YCIN Inactive AMOXICILLIN 875 MG ORAL TABLET 1 tab by mouth twice daily AMOXICILLIN 875 MG ORAL TABLET 425281 AMOXICILLIN Inactive Advance Directives Directive Description Start [...] weight E&M 174.5 [lb_av] Weight Measure d blood pressure, diastolic 78 mm[Hg] BP kennedy blood pressure, systolic 133 mm[Hg] BP sys height E&M 66 [in_us] Bdy height pulse rate E&M 87 /min Heart rate temperature E&M 99.0 [degF] Body temp erature weight E&M 172.31 [lb_av] Weight Measure d blood pressure, diastolic 76 mm[Hg] BP kennedy blood pressure, systolic 120 mm[Hg] BP sys pulse rate E&M 77 /min Heart rate temperature E&M 99.1 [degF] Body temp erature weight E&M 171 [lb_av] Weight Measure d Diagnostic Results Date [...] count 297 10^3/MM^3 10*3/mm3 142-424 Lab Report: CBC, [place] [facility] [place] leukocyte count, blood 7.8 10^3/MM^3 10*3/mm3 4.6-10.2 erythrocyte (RBC) count 4.77 10^6/MM^3 10*6/mm3 3.80-5.8 0 hemoglobin, blood 12.7 g/dL 12.0-16.0 hematocrit, blood 39.5 % 37.0-47.0 mean corpuscular volume, RBC 83 fL 80-97 mean corpuscular hemoglobin, RBC 26.7 pg 27. 0-31.2 mean corpuscular hemoglobin concentration, RBC 32.2 G/DL % 31.8-35.4 red blood cell distribution width 13.3 % 11 .6-14.8 platelet count 263 10^3/MM^3 10*3/mm3 142-424 Lab Report: FSH/Adult/470, PROLACTIN - C hemistry follicle stimulating hormone, serum 1.4 m[iU]/mL Lab Report: LH/Adult/615 - Chemistry luteinizing hormone, serum 2.7 m[iU]/mL Lab Report: Thyroid Stimulating Hormone (L) - Chemistry TSH 0.95 m[iU]/mL 0.36-3.74 Office Visit: Evaluation for infertility - Chemistry human chorionic gonadotropin , urine, qualitative (urine test) Negative Encounters Code Encounter Date Provider Facility [id number] Vst-Est Level III 09:41:31 CDT Arie Casper MD [facility]-07878 [id number] Vst-Est Level III 18:20:11 CDT Me lobito Russ [facility]-42721 [id number]-Rce Vst-Est Level III 17:21:41 CDT Me lobito Russ [facility]-99421 [id number] Vst-Est Level IV 13:30:22 C DT Arie Casper MD [facility] CPT-91281 Level 4 Est. Patient 13:05:26 CDT Myrna maldonado MD [facility]-35993 [id number] Vst-Est Level IV 20:50:21 C DT Arie Casper MD [facility] CPT-97592 Level 3 Est. Patient 11:49:34 HEAD AND NECK SURGEON Jessica boyd [facility] CPT-82569 Level 3 Est. Patient 14:55:50 HEAD AND NECK SURGEON Jose Zhong MD [facility] CPT-33848 Level 3 Est. Patient 10:21:41 HEAD AND NECK SURGEON Arie mcqueen MD [facility] CPT-71233 Level 3 Est. Patient 11:35:15 HEAD AND NECK SURGEON Arie mcqueen MD [facility] CPT-91903 Level 3 Est. Patient 15:40:28 CDT Brii escalante [facility] CPT-25327 Level 3 Est. Patient 16:40:36 CDT Arie mcqueen MD [facility] CPT-22772 Level 4 Est. Patient 15:29:22 HEAD AND NECK SURGEON Arie mcqueen MD [facility] CPT-16340 Level 3 Est. Patient 15:18:16 HEAD AND NECK SURGEON Jono black [facility] [address] CPT-64180 Level 4 Est. Patient 12:08:40 HEAD AND NECK SURGEON Brii Are ll [facility] CPT-39806 Level 3 Est. Patient 09:24:42 CDT Brii Are ll [facility] CPT-95638 Level 3 Est. Patient 09:12:56 CDT Arie mcqueen MD [facility] CPT-17941 Level 3 Est. Patient 16:40:54 CDT Jose Zhong MD [facility] CPT-66493 Level 2 Est. Patient 13:01:13 CDT Brii Are ll [facility] CPT-50990 Level 3 Est. Patient 11:55:30 HEAD AND NECK SURGEON Jono black [facility] [address] CPT-17790 Level 3 Est. Patient 09:52:36 HEAD AND NECK SURGEON Brii Are ll [facility] CPT-70785 Level 3 Est. Patient 16:25:33 HEAD AND NECK SURGEON Rich Rosales MD [facility] CPT-24793 Level 3 Est. Patient 20:33:55 CDT Arie mcqueen MD [facility] CPT-26967 Level 3 Est. Patient 14:18:20 CDT Rich Rosales MD [facility] CPT-97756 Level 4 Est. Patient 09:34:31 CDT Arie mcqueen MD [facility]-34453 Level 3 Est. Patient 09:08:55 HEAD AND NECK SURGEON Liliana vincent MD, PhD [facility]-59446 Level 3 Est. Patient 16:44:07 HEAD AND NECK SURGEON Arie mcqueen MD [facility] CPT-18296 Level 3 Est. Patient 10:44:27 CDT Arie mcqueen MD [facility] CPT-15776 Level 3 Est. Patient 08:55:41 CDT Jose Zhong MD [facility] CPT-50529 Level 3 Est. Patient 18:37:31 CDT Liliana vincent MD PhD [facility] CPT-06970 Level 3 Est. Patient 14:28:23 CDT Abelardo HERNANDEZ [facility] CPT-71165 Level 3 Est. Patient 15:18:13 HEAD AND NECK SURGEON Arie mcqueen MD [facility] CPT-44636 Level 3 Est. Patient 10:11:29 HEAD AND NECK SURGEON Arie mcqueen MD [facility] CPT-29363 Level 3 Est. Patient 10:55:57 HEAD AND NECK SURGEON Jono black DO [facility] CPT-85306 Level 3 Est. Patient 17:29:05 CDT Arie mcqueen MD [facility] [facility] Procedures Code Procedure Name Date Entry Date Standard Desc ription CPT-78076 Sono Soft Tissue Head and Neck - XRAY US E ONLY 17:10:14 CDT CPT-11089 Ear Wash with irrigation 17:21:41 CDT 07/04 CPT-52069 Nexplanon Removal 15:40:28 CDT CPT-50248 Sono transvag pelvis non OB uterus ovari es cervix - XRAY USE ONLY 08:58:14 HEAD AND NECK SURGEON CPT-83095 UA w micro - LAB USE ONLY 16:04:56 HEAD AND NECK SURGEON 2015 CPT-58944 Wet Prep/GNE - LAB USE ONLY 16:04:56 HEAD AND NECK SURGEON 20 08/10/29 CPT-68240 First Vx - Ix admin via ID I M or jet injects without counseling by physician 16:57:10 CDT CPT-44480 Fluzone Preservative Free Intramuscular Suspension 16:57:10 CDT CPT-J0696 Rocephin 1000 mg (Ceftriaxone) 11:49:23 CDT CPT-J1040 Depo Medrol 80 mg (Methyl Prednisolone A cetate) 11:49:23 CDT CPT-J1100 Decadron 8mg (Dexamethasone) 11:49:23 CDT 2 CPT-35580 Abx/Therapy Injection 11:49:23 CDT CPT-04399 Abx/Therapy Injection 11:49:23 CDT CPT-12459 Abd compl w upright 09:07:26 HEAD AND NECK SURGEON CPT-11869 Ear Wash 16:12:47 HEAD AND NECK SURGEON CPT-OV Office Visit 11:12:01 CDT CPT-OV Office Visit 15:30:23 CDT CPT-89180 Sono pelvis non OB uterus ovaries cervix 15:50:44 CDT CPT-18503 Hand comp min 3V 16:42:32 CDT CPT-27121 Abd compl w upright 12:17:01 CDT CPT-37264 Nexplanon Placement 15:07:39 HEAD AND NECK SURGEON CPT-93926 Removal of IUD 15:07:39 HEAD AND NECK SURGEON CPT-63755 TB Tubersol 12:09:32 CDT CPT-99914 TB Tubersol 13:55:43 CDT
--- OUTSIDE RECORDS SUMMARY | 2020-03-03 07:08 | XMS REPORT | Clinical Summary ---
Author Author Admin, Diamante Marcelo Organization [employer] Address Unknown Phone Unavailable Allergies, Adverse Reactions, [...] unspecified site Vaginal bleeding 623.8 Resolved Jose hZong MD Other specified noninflammatory disorders of vagina [...] respiratory manifestations Sinusitis 473.9 Active Jessica Heaton MASTER DATA ANALYST Unspecified sinusitis (chronic) Other mixed anxiety 300.00 [...] Cerumen impaction, bilateral 380.4 Active Brii Russ MASTER DATA ANALYST Impacted cerumen Tonsillar enlargement 474.11 Active Brii Russ APRN Hypertrophy of tonsils alone Influenza Vaccination for Prophylaxis V04.81 Inactive Brii Russ MASTER DATA ANALYST Need for prophylactic vaccin ation and inoculation against influenza Submandibular lymph node 785.6 Active Brii Are ll MASTER DATA ANALYST Enlargement of lymph nodes Influenza Vaccination for [...] Generic Name NDC Status Provider Patient Instruction KEFLEX 500 MG ORAL CAPSULE 1 po tid CEPHALEXIN 015877 15347 Active Brii Russ APRN Active PROTONIX 40 MG ORAL TABLET DELAYED RELEASE 1 pill by m outh daily, for acid reflux PANTOPRAZOLE SODIUM 43854735832 Active Roseann Crawford Active AMOXICILLIN 875 MG ORAL TABLET 1 tab by mouth twice daily 1 AMOXICILLIN 47344595654 No Longer Active Brii Russ APRN Active ALPRAZOLAM 0.25 MG ORAL TABLET 1 tablet by mouth twice a day as needed for stress/anxiety ALPRAZOLAM 10168858861 Active KELLIE Escobar Active ESCITALOPRAM OXALATE 10 MG ORAL TABLET take 1 tab po qhs for mod 20 10/04/18 ESCITALOPRAM OXALATE 08056492814 Active Arie Casper MD Active TUSSIONEX PENNKINETIC ER 10-8 MG/5ML ORAL SUSPENSION E XTENDED RELEASE 5ml po q12hr PRN Cough HYDROCOD POLST-CHLORPHEN POLST 5 3556585421 No Longer Active Myrna Roberto MD Active ZITHROMAX Z-EMIL 250 MG TABS Take two tablets today and then 1 tablet daily for 4 days AZITHROMYCIN 11012553511 No Longer Active Flaco Rosales MD Active GUAIFENESIN DM 400-20 MG ORAL TABLET 1 pill by mouth t wice daily, if needed for cough DEXTROMETHORPHAN-GUAIFENESIN 55945011795 No Longer Active Rich Rosales MD Active CEFDINIR 300 MG ORAL CAPSULE 1 po BID x 10 days CEFDINIR 14503593771 No Longer Active Jessica Heaton APRN Active CHERATUSSIN AC 100-10 MG/5ML ORAL SYRUP 1 tsp by mouth every 4 hours as needed for cough GUAIFENESIN-CODEINE 20308334620 No Longe r Active Jessica Heaton APRN Active TAMIFLU 75 MG ORAL CAPSULE 1 po BID x 5 days 0 OSELTAMIVIR PHOSPHATE 03579145981 No Longer Active Jose Zhong MD Activ e ZITHROMAX Z-EMIL 250 MG ORAL TABLET 2 today, then 1 daily for 4 d ays AZITHROMYCIN 11768189353 No Longer Active Arie Casper MD Active PROTONIX 40 MG ORAL TABLET DELAYED RELEASE 1 po q a.m. PANTOPRAZOLE SODIUM 87071705091 No Longer Active Arie Casper MD Active BACTRIM DS 800-160 MG ORAL TABLET 1 tab by mouth twice daily 201 05/02/30 TRIMETHOPRIM-SULFAMETHOXAZOLE 35456946624 No Longer Active R vaalberto Crawford Active NEXPLANON IMPLANT right arm subcutaneously ETONOGESTREL IMPL 35243927180 No Longer Active Brii Areboris MASTER DATA ANALYST Active TUSSIONEX PENNKINETIC ER 10-8 MG/5ML ORAL SUSPENSION E XTENDED RELEASE 5ml po q12hr PRN Cough HYDROCOD POLST-CHLORPHEN POLST 5 2651913261 No Longer Active Brii Arell MASTER DATA ANALYST Active CETIRIZINE HCL 10 MG ORAL TABLET 1 po qd PRN Allergies CETIRIZINE HCL 95446289203 No Longer Active Brii Arell MASTER DATA ANALYST Activ e PREDNISONE 20 MG ORAL TABLET 2 tabs daily for 3 days, 1 tab daily for 3 days, 1/2 tab daily for 2 days PREDNISONE 53040526103 No Longer Active Arie Casper MD Active LOMOTIL 2.5-0.025 MG ORAL TABLET 1 tab po four times a day as needed for diarrhea DIPHENOXYLATE-ATROPINE 84276120665 No Lo nger Active Arie Casper MD Active ZOLOFT 50 MG ORAL TABLET 1 tablet by mouth daily 12/08 SERTRALINE HCL 30212311335 No Longer Active Arie Casper MD Ac tive NAPROXEN 500 MG ORAL TABLET Take 1 tab BID NAPR OXEN 66587561065 No Longer Active Arie Casper MD Active CEFDINIR 300 MG ORAL CAPSULE 1 po BID x 10 days CEFDINIR 78948153868 No Longer Active Brii Russ APRN Active PREDNISONE 20 MG ORAL TABLET 1 tablet daily for airway inflammat ion PREDNISONE 00130555260 No Longer Active Brii Russ APRN A ctive CEFDINIR 300 MG ORAL CAPSULE 1 po BID x 10 days CEFDINIR 75568029286 No Longer Active Jono Gagnon DO Active FLONASE 50 MCG/ACT NASAL SUSPENSION 1 spray each nostr il twice daily for allergies and runny nose until gone FLUT ICASONE PROPIONATE 03244763036 No Longer Active Jono Gagnon DO Active ALPRAZOLAM 0.25 MG ORAL TABLET 1 tablet by mouth every 8 hours as needed for stress ALPRAZOLAM 71652009750 No Longer Active Jono Gagnon DO Active ZITHROMAX Z-EMIL 250 MG ORAL TABLET 2 today, then 1 daily for 4 d ays AZITHROMYCIN 90321180273 No Longer Active Arie Casper MD Active PREDNISONE 20 MG ORAL TABLET 2 tabs daily for 3 days, 1 tab daily for 3 days, 1/2 tab daily for 2 days PREDNISONE 04813783489 No Longer Active Brii Russ APRN Active PREDNISONE 20 MG ORAL TABLET 1 tablet twice daily for 2 days, then 1 tablet once daily for 2 days PREDNISONE 02696347372 No Longer Active Brii Russ APRN Active PROMETHAZINE HCL 12.5 MG ORAL TABLET 1 tablet by mouth every 6 hours as needed for nausea/vomiting PROMETHAZINE HCL 41190959389 No L onger Active Jono Gagnon DO Active CITRATE OF MAGNESIA ORAL SOLUTION 1 bottle today for constipatio n MAGNESIUM CITRATE 49774391336 No Longer Active Jono Gagnon DO Active ZOFRAN 4 MG ORAL TABLET 1 TAB PO Q 6 HRS PRN NAUSEA 07/10/15 ONDANSETRON HCL 34410240377 No Longer Active Brii Russ APRN Acti ve LOMOTIL 2.5-0.025 MG ORAL TABLET 1 to 2 four times a day as needed for diarrhea DIPHENOXYLATE-ATROPINE 16670848790 No Longer Active January Russ APRN Active AMOXICILLIN 500 MG ORAL TABLET 2 tabs twice a day for 10 days 07/09/11 AMOXICILLIN 36964616874 No Longer Active Brii Russ APRN Active CYCLOBENZAPRINE HCL 10 MG ORAL TABLET 1/2 - 1 tablet b y mouth three times daily as needed for muscle spasm/pain CYCLOBENZAPRINE HCL 39843227069 No Longer Active Arie Casper MD Active LOMOTIL 2.5-0.025 MG ORAL TABLET 1 to 2 four times a day as needed for diarrhea DIPHENOXYLATE-ATROPINE 51821896126 No Longer Active Fozia Casper MD Active MACROBID 100 MG ORAL CAPSULE 1 cap by mouth twice daily NITROFURANTOIN MONOHYD MACRO 19170574483 No Longer Active Arie Casper MD Active ZYRTEC ALLERGY 10 MG ORAL CAPSULE 1 po qd CE TIRIZINE HCL 64956119991 No Longer Active Arie Casper MD Active AZITHROMYCIN 250 MG ORAL TABLET 2 po qd x 1 day, then 1 po q d x 4 days AZITHROMYCIN 52331718597 No Longer Active Jessica salgado APRN Active PREDNISONE 20 MG ORAL TABLET 2 tabs daily for 3 days, 1 tab daily for 3 days, 1/2 tab daily for 2 days PREDNISONE 85102421204 No Longer Active Jessica Heaton APRN Active PROMETHAZINE HCL 25 MG ORAL TABLET 1 four times a day as nee ded for vomiting PROMETHAZINE HCL 13232153734 No Longer Active Myrna Roberto MD Active BACTRIM DS 800-160 MG ORAL TABLET 1 twice a day 05/30 SULFAMETHOXAZOLE-TRIMETHOPRIM 16513297401 No Longer Active Myrna Roberto MD Active VICKS DAYQUIL SEVERE COLD/FLU TABLET 1 tab every 6 hours prn 201 02/22/17 [id number] TABS 26592504437 No Longer Active K fany Roberto MD Active GUAIFENESIN-CODEINE 100-10 MG/5ML ORAL SYRUP 2 tsp every 6 hours prn GUAIFENESIN-CODEINE 94972903933 No Longer Active Myrna Roberto MD Active NAPROXEN 500 MG ORAL TABLET one tab PO BID NAPR OXEN 31815367367 No Longer Active Myrna Roberto MD Active AUGMENTIN 875-125 MG ORAL TABLET 1 tab by mouth twice daily with food AMOXICILLIN-POT CLAVULANATE 69450853193 No Longer Act zaid Liliana Estrada MD PhD Active AMOXICILLIN 500 MG ORAL CAPSULE 1 tab by mouth 3 times daily 201 02/21/05 AMOXICILLIN 07377440799 No Longer Active Liliana Estrada MD PhD Active TESSALON PERLES 100 MG ORAL CAPSULE 1 tablet by mouth 3 times da cory BENZONATATE 71253887848 No Longer Active Liliana Estrada MD PhD Active FLAGYL 500 MG ORAL TABLET 1 tablet by mouth two times daily 2014 METRONIDAZOLE 15709908671 No Longer Active Nilam Raida Ac tive ZITHROMAX 250 MG ORAL TABLET 2 po today, then 1 po q days 2-5 20 06/08/16 AZITHROMYCIN 16742184992 No Longer Active Arie Casper MD Active VITAMINS 0.8 MG ORAL TABLET take 1 tab po qday [id number] 56142233212 No Longer Active Arie Casper MD Active IBUPROFEN 800 MG ORAL TABLET take one po Q 8 hours 201 02/01/16 IBUPROFEN 34609019603 No Longer Active Arie Casper MD Acti ve [facility] TUSSIN COUGH/COLD CF 5-10-100 MG/5ML ORAL LIQUID 2 teasp oons every 4 hours [id number] 48593938250 No Longer Active Blaine Casper MD Active COMTREX COLD/COUGH DAY/NITE MS 5-2-10-325 MG ORAL 2 caps deja ry 4 hours [id number] 47616150103 No Longer Active Landon Casper MD Active CHLORASEPTIC MAX SORE THROAT 15-10 MG MOUTH/THROAT LOZENGE 1 every 2 hours prn BENZOCAINE-MENTHOL 38757387407 No Longer Active Arie Casper MD Active PREDNISONE 20 MG ORAL TABLET 2 tabs daily for 3 days, 1 tab daily for 3 days, 1/2 tab daily for 2 days PREDNISONE 06931978872 No Longer Active Jose Zhong MD Active AZITHROMYCIN 250 MG ORAL TABLET 2 po qd x 1 day, then 1 po q d x 4 days AZITHROMYCIN 42377350524 No Longer Active Jose Mcwilliams MD Active ZOFRAN ODT 4 MG ORAL TABLET DISINTEGRATING 1 po q6hr PRN Nausea ONDANSETRON 30406661591 No Longer Active Rich Rosales MD Active ZOFRAN 4 MG ORAL TABLET 1 tablet every 4 hours ONDANSETRON HCL 85996167318 No Longer Active Rich Rosales MD Activ e MUCINEX 600 MG ORAL TABLET EXTENDED RELEASE 12 HOUR Ta ke 1-2 tablets every 12 hours GUAIFENESIN 22538056283 No Longer Active Rich Rosales MD Active BACTRIM 400-80 MG ORAL TABLET take one po BID SULFAMETHOXAZOLE-TRIMETHOPRIM 45596028324 No Longer Active Abelardo HERNANDEZ Active AZITHROMYCIN 500 MG ORAL TABLET 1 PO q day x 6 days 03/02/23 AZITHROMYCIN 33712541004 No Longer Active Tin HERNANDEZ Activ e ZITHROMAX 250 MG ORAL TABLET 2 po today, then 1 po q days 2-5 20 10/03/08 AZITHROMYCIN 96320236794 No Longer Active Arie Casper MD Active ZITHROMAX 250 MG ORAL TABLET 2 po today, then 1 po q days 2-5 20 09/23/25 AZITHROMYCIN 22389944383 No Longer Active Arie Casper MD Active AMOXICILLIN 500 MG ORAL CAPSULE 1 tab by mouth 3 times daily 201 11/24/09 AMOXICILLIN 77283521614 No Longer Active Arie Casper MD Active BACTRIM DS 800-160 MG ORAL TABLET 1 tab by mouth twice daily 201 11/03/14 TRIMETHOPRIM-SULFAMETHOXAZOLE 21203941649 No Longer Active Fozia Casper MD Active AMOXICILLIN 500 MG ORAL TABLET take 1 tab po TID 08/05 AMOXICILLIN 06115055904 No Longer Active Arie Casper MD Acti ve BACTRIM DS 800-160 MG ORAL TABLET 1 tab by mouth twice daily 201 11/03/14 BACTRIM DS 800-160 MG ORAL TABLET 054291 TRIMETHOPRIM-SULFAMETHOXAZOLE Inactive MUCINEX 600 MG ORAL TABLET EXTENDED RELEASE 12 HOUR Ta ke 1-2 tablets every 12 hours MUCINEX 600 MG ORAL TABLET EXTENDED RELEA SE 12 HOUR GUAIFENESIN Inactive ZOFRAN 4 MG ORAL TABLET 1 tablet every 4 hours ZOFRAN 4 MG ORAL TABLET 763606 ONDANSETRON HCL Inactive ZOFRAN ODT 4 MG ORAL TABLET DISINTEGRATING 1 po q6hr PRN Nausea ZOFRAN ODT 4 MG ORAL TABLET DISINTEGRATING 662597 ONDAN SETRON Inactive CHLORASEPTIC MAX SORE THROAT 15-10 MG MOUTH/THROAT LOZENGE 1 every 2 hours prn CHLORASEPTIC MAX SORE THROAT 15-10 MG MOUTH/THROAT LOZENGE BENZOCAINE-MENTHOL Inactive COMTREX COLD/COUGH DAY/NITE MS 5-2-10-325 MG ORAL 2 caps deja ry 4 hours COMTREX COLD/COUGH DAY/NITE MS 5-2-10-325 MG ORA L [id number] Inactive [facility] TUSSIN COUGH/COLD CF 5-10-100 MG/5ML ORAL LIQUID 2 teasp oons every 4 hours [facility] TUSSIN COUGH/COLD CF 5-10-100 MG/5ML ORAL LI QUID [id number] Inactive IBUPROFEN 800 MG ORAL TABLET take one po Q 8 hours 201 02/01/16 IBUPROFEN 800 MG ORAL TABLET 798809 IBUPROFEN Inactive VITAMINS 0.8 MG ORAL TABLET take 1 tab po qday VITAMINS 0.8 MG ORAL TABLET [id number] E-FA Inactive TESSALON PERLES 100 MG ORAL CAPSULE 1 tablet by mouth 3 times da cory TESSALON PERLES 100 MG ORAL CAPSULE 157923 BENZONATATE Inactive AMOXICILLIN 500 MG ORAL CAPSULE 1 tab by mouth 3 times daily 201 02/21/05 AMOXICILLIN 500 MG ORAL CAPSULE 351514 AMOXICILLIN Inactive GUAIFENESIN-CODEINE 100-10 MG/5ML ORAL SYRUP 2 tsp every 6 hours prn GUAIFENESIN-CODEINE 100-10 MG/5ML ORAL SYRUP 204208 GUAIFENESIN-CODEINE Inactive VICKS DAYQUIL SEVERE COLD/FLU TABLET 1 tab every 6 hours prn 201 02/22/17 VICKS DAYQUIL SEVERE COLD/FLU TABLET PHENYLEPHRI [id number]-RI-APAP TABS Inactive BACTRIM DS 800-160 MG ORAL TABLET 1 twice a day 05/30 BACTRIM DS 800-160 MG ORAL TABLET 885264 SULFAMETHOXAZOLE-TRIMETHOPRIM Inactiv e PROMETHAZINE HCL 25 MG ORAL TABLET 1 four times a day as nee ded for vomiting PROMETHAZINE HCL 25 MG ORAL TABLET 736637 PROMETHAZINE HCL Inactive ZYRTEC ALLERGY 10 MG ORAL CAPSULE 1 po qd ZYRTEC ALLERGY 10 MG ORAL CAPSULE CETIRIZINE HCL Inactive MACROBID 100 MG ORAL CAPSULE 1 cap by mouth twice daily MACROBID 100 MG ORAL CAPSULE 2246968 NITROFURANTOIN MONOHYD MACRO In active LOMOTIL 2.5-0.025 MG ORAL TABLET 1 to 2 four times a day as needed for diarrhea LOMOTIL 2.5-0.025 MG ORAL TABLET 5359505 DIPHENOXYLATE-ATROPINE Inactive CYCLOBENZAPRINE HCL 10 MG ORAL TABLET 1/2 - 1 tablet b y mouth three times daily as needed for muscle spasm/pain CYCLOBEN ZAPRINE HCL 10 MG ORAL TABLET 007155 CYCLOBENZAPRINE HCL Inactive AMOXICILLIN 500 MG ORAL TABLET 2 tabs twice a day for 10 days 07/09/11 AMOXICILLIN 500 MG ORAL TABLET 032583 AMOXICILLIN I nactive LOMOTIL 2.5-0.025 MG ORAL TABLET 1 to 2 four times a day as needed for diarrhea LOMOTIL 2.5-0.025 MG ORAL TABLET 7610079 DIPHENOXYLATE-ATROPINE Inactive ZOFRAN 4 MG ORAL TABLET 1 TAB PO Q 6 HRS PRN NAUSEA 07/10/15 ZOFRAN 4 MG ORAL TABLET 475968 ONDANSETRON HCL Inactive CITRATE OF MAGNESIA ORAL SOLUTION 1 bottle today for constipatio n CITRATE OF MAGNESIA ORAL SOLUTION 1185670 MAGNESIUM CITR ATE Inactive PROMETHAZINE HCL 12.5 MG ORAL TABLET 1 tablet by mouth every 6 hours as needed for nausea/vomiting PROMETHAZINE HCL 12.5 MG ORA L TABLET 105626 PROMETHAZINE HCL Inactive PREDNISONE 20 MG ORAL TABLET 1 tablet twice daily for 2 days, then 1 tablet once daily for 2 days PREDNISONE 20 MG ORAL TABLET 105603 PREDNISONE Inactive ALPRAZOLAM 0.25 MG ORAL TABLET 1 tablet by mouth every 8 hours as needed for stress ALPRAZOLAM 0.25 MG ORAL TABLET 348757 ALPRA ZOLAM Inactive FLONASE 50 MCG/ACT NASAL SUSPENSION 1 spray each nostr il twice daily for allergies and runny nose until gone FLON ASE 50 MCG/ACT NASAL SUSPENSION 9336287 FLUTICASONE PROPIONATE Inactive PREDNISONE 20 MG ORAL TABLET 1 tablet daily for airway inflammat ion PREDNISONE 20 MG ORAL TABLET 768576 PREDNISONE Arlen ctive NAPROXEN 500 MG ORAL TABLET Take 1 tab BID NAPROXEN 500 MG ORAL TABLET 698453 NAPROXEN Inactive ZOLOFT 50 MG ORAL TABLET 1 tablet by mouth daily 12/08 ZOLOFT 50 MG ORAL TABLET 161773 SERTRALINE HCL Inactive LOMOTIL 2.5-0.025 MG ORAL TABLET 1 tab po four times a day as needed for diarrhea LOMOTIL 2.5-0.025 MG ORAL TABLET 9165084 DIPHENOXYLATE-ATROPINE Inactive CETIRIZINE HCL 10 MG ORAL TABLET 1 po qd PRN Allergies CETIRIZINE HCL 10 MG ORAL TABLET 0345465 CETIRIZINE HCL Inactiv e TUSSIONEX PENNKINETIC ER 10-8 MG/5ML ORAL SUSPENSION E XTENDED RELEASE 5ml po q12hr PRN Cough TUSSIONEX PENNKINETI C ER 10-8 MG/5ML ORAL SUSPENSION EXTENDED RELEASE HYDROCOD POLST-CHLORPHEN POLST I nactive NEXPLANON IMPLANT right arm subcutaneously NEXPLANON IMPLANT ETONOGESTREL IMPL Inactive PROTONIX 40 MG ORAL TABLET DELAYED RELEASE 1 po q a.m. PROTONIX 40 MG ORAL TABLET DELAYED RELEASE 679886 PANTOPRAZOLE SODI UM Inactive CHERATUSSIN AC 100-10 MG/5ML ORAL SYRUP 1 tsp by mouth every 4 hours as needed for cough CHERATUSSIN AC 100-10 MG/5ML ORAL SYRUP 9 41745 GUAIFENESIN-CODEINE Inactive GUAIFENESIN DM 400-20 MG ORAL TABLET 1 pill by mouth t wice daily, if needed for cough GUAIFENESIN DM 400-20 MG ORAL TABLET 1144 668 DEXTROMETHORPHAN-GUAIFENESIN Inactive TUSSIONEX PENNKINETIC ER 10-8 MG/5ML ORAL SUSPENSION E XTENDED RELEASE 5ml po q12hr PRN Cough TUSSIONEX PENNKINETI C ER 10-8 MG/5ML ORAL SUSPENSION EXTENDED RELEASE HYDROCOD POLST-CHLORPHEN POLST I nactive AMOXICILLIN 500 MG ORAL TABLET take 1 tab po TID 08/05 AMOXICILLIN 500 MG ORAL TABLET 470451 AMOXICILLIN Inactive AMOXICILLIN 500 MG ORAL CAPSULE 1 tab by mouth 3 times daily 201 11/24/09 AMOXICILLIN 500 MG ORAL CAPSULE 406371 AMOXICILLIN Inactive ZITHROMAX 250 MG ORAL TABLET 2 po today, then 1 po q days 2-5 20 09/23/25 ZITHROMAX 250 MG ORAL TABLET 559948 AZITHROMYCIN [place] ctive ZITHROMAX 250 MG ORAL TABLET 2 po today, then 1 po q days 2-5 20 10/03/08 ZITHROMAX 250 MG ORAL TABLET 133589 AZITHROMYCIN [place] ctive AZITHROMYCIN 500 MG ORAL TABLET 1 PO q day x 6 days 20 03/02/23 AZITHROMYCIN 500 MG ORAL TABLET 6446622 AZITHROMYCIN Inactive BACTRIM 400-80 MG ORAL TABLET take one po BID BACTRIM 400- 80 MG ORAL TABLET 563536 SULFAMETHOXAZOLE-TRIMETHOPRIM Inactive AZITHROMYCIN 250 MG ORAL TABLET 2 po qd x 1 day, then 1 po q d x 4 days AZITHROMYCIN 250 MG ORAL TABLET 801621 AZITHROMY ALLISON Inactive PREDNISONE 20 MG ORAL TABLET 2 tabs daily for 3 days, 1 tab daily for 3 days, 1/2 tab daily for 2 days PREDNISONE 20 MG ORAL T ABLET 782191 PREDNISONE Inactive ZITHROMAX 250 MG ORAL TABLET 2 po today, then 1 po q days 2-5 20 06/08/16 ZITHROMAX 250 MG ORAL TABLET 162096 AZITHROMYCIN [place] ctive FLAGYL 500 MG ORAL TABLET 1 tablet by mouth two times daily 2014 FLAGYL 500 MG ORAL TABLET 623652 METRONIDAZOLE Inacti ve AUGMENTIN 875-125 MG ORAL TABLET 1 tab by mouth twice daily with food AUGMENTIN 875-125 MG ORAL TABLET 008723 AMOXICIL ELSA-POT CLAVULANATE Inactive NAPROXEN 500 MG ORAL TABLET one tab PO BID NAPROXEN 500 MG ORAL TABLET 315430 NAPROXEN Inactive PREDNISONE 20 MG ORAL TABLET 2 tabs daily for 3 days, 1 tab daily for 3 days, 1/2 tab daily for 2 days PREDNISONE 20 MG ORAL T ABLET 211214 PREDNISONE Inactive AZITHROMYCIN 250 MG ORAL TABLET 2 po qd x 1 day, then 1 po q d x 4 days AZITHROMYCIN 250 MG ORAL TABLET 679008 AZITHROMY ALLISON Inactive PREDNISONE 20 MG ORAL TABLET 2 tabs daily for 3 days, 1 tab daily for 3 days, 1/2 tab daily for 2 days PREDNISONE 20 MG ORAL T ABLET 921267 PREDNISONE Inactive ZITHROMAX Z-EMIL 250 MG ORAL TABLET 2 today, then 1 daily for 4 d ays ZITHROMAX Z-EMIL 250 MG ORAL TABLET 119293 AZITHROMYCIN Inactive CEFDINIR 300 MG ORAL CAPSULE 1 po BID x 10 days 12/18 CEFDINIR 300 MG ORAL CAPSULE 034253 CEFDINIR Inactive CEFDINIR 300 MG ORAL CAPSULE 1 po BID x 10 days CEFDINIR 300 MG ORAL CAPSULE 270707 CEFDINIR Inactive PREDNISONE 20 MG ORAL TABLET 2 tabs daily for 3 days, 1 tab daily for 3 days, 1/2 tab daily for 2 days PREDNISONE 20 MG ORAL T ABLET 912134 PREDNISONE Inactive BACTRIM DS 800-160 MG ORAL TABLET 1 tab by mouth twice daily 201 05/02/30 BACTRIM DS 800-160 MG ORAL TABLET 735115 TRIMETHOPRIM-SULFAMETHOXAZOLE Inactive ZITHROMAX Z-EMIL 250 MG ORAL TABLET 2 today, then 1 daily for 4 d ays ZITHROMAX Z-EMIL 250 MG ORAL TABLET 812705 AZITHROMYCIN Inactive TAMIFLU 75 MG ORAL CAPSULE 1 po BID x 5 days 0 TAMIFLU 75 MG ORAL CAPSULE 948530 OSELTAMIVIR PHOSPHATE Inactive CEFDINIR 300 MG ORAL CAPSULE 1 po BID x 10 days 01/03 CEFDINIR 300 MG ORAL CAPSULE 456633 CEFDINIR Inactive ZITHROMAX Z-EMIL 250 MG TABS Take two tablets today and then 1 tablet daily for 4 days ZITHROMAX Z-EMIL 250 MG TABS 320933 AZITHROM YCIN Inactive AMOXICILLIN 875 MG ORAL TABLET 1 tab by mouth twice daily AMOXICILLIN 875 MG ORAL TABLET 697851 AMOXICILLIN Inactive Advance Directives Directive Description Start [...] [lb_av] Weight Measure d blood pressure, diastolic 89 mm[Hg] BP kennedy blood pressure, systolic 113 mm[Hg] BP sys height E&M 66 [in_us] Bdy height pulse rate E&M 80 /min Heart rate temperature E&M 98.5 [degF] Body temp erature weight E&M 171 [lb_av] Weight Measure d blood pressure, diastolic 74 mm[Hg] BP kennedy blood pressure, systolic 127 mm[Hg] BP sys height E&M 66 [in_us] Bdy height pulse rate E&M 79 /min Heart rate temperature E&M 99.7 [degF] Body temp erature weight E&M 171 [...] 10^3/MM^3 10*3/mm3 142-424 Lab Report: CBC, Quant BHCG - Hematology leukocyte count, blood 7.8 10^3/MM^3 [...] Chemistry TSH 0.95 m[iU]/mL 0.36-3.74 Lab Report: UADIP W/MICRO, AUTO - Chemis try RBC, urine, dipstick 1+ Negative protein, total urine random Negative mg/dL Negative Lab Report: UADIP W/MICRO, AUTO - Urinal ysis glucose, urine, semiquantitative Negative Neg ative ketones, urine, by test strip Negative Negati ve bilirubin, urine Negative Negative urine color Yellow Colorless;Lightyellow;St raw;Yellow appearance, urine Clear Clear specific gravity, urine 1.020 1.000-1.030 pH, urine, semiquantitative 5.5 5.0-8.5 urobilinogen, urine, semiquantitative (dipstick) 0.2 E .U./dL Normal leukocyte esterase, urine, by dipstick 1+ Negative nitrite, urine, semiquantitative Negative Neg ative Office Visit: Evaluation for infertility - Chemistry human chorionic gonadotropin , urine, qualitative (urine test) Negative Encounters Code Encounter Date Provider Facility CPT-47638 [id number] Vst-Est Level III 09:41:31 CDT Arie Casper MD [facility] CPT-92335 [id number] Vst-Est Level III 18:20:11 CDT Me lobito Russ APRN [facility] CPT-63183 [id number] Vst-Est Level III 17:21:41 CDT Me lobito Russ [facility] CPT-87709 [id number] Vst-Est Level IV 13:30:22 C NIC Casper MD [facility] CPT-89485 Level 4 Est. Patient 13:05:26 CDT Myrna Real Bernabe maldonado MD [facility]-94484 [id number] Vst-Est Level IV 20:50:21 C DT Arie Casper MD [facility] CPT-04063 Level 3 Est. Patient 11:49:34 CHIEF OF HOSPITAL MEDICINE Jessica [facility]-32971 Level 3 Est. Patient 14:55:50 CHIEF OF HOSPITAL MEDICINE Jose Zhong MD [facility] CPT-81735 Level 3 Est. Patient 10:21:41 CHIEF OF HOSPITAL MEDICINE Arie mcqueen MD [facility] CPT-17060 Level 3 Est. Patient 11:35:15 CHIEF OF HOSPITAL MEDICINE Arie mcqueen MD [facility] CPT-55498 Level 3 Est. Patient 15:40:28 CDT Brii Are [facility] CPT-13354 Level 3 Est. Patient 16:40:36 CDT Arie mcqueen MD [facility]-07477 Level 4 Est. Patient 15:29:22 CHIEF OF HOSPITAL MEDICINE Arie mcqueen MD [facility] CPT-66396 Level 3 Est. Patient 15:18:16 CHIEF OF HOSPITAL MEDICINE Jono black DO [facility] CPT-52268 Level 4 Est. Patient 12:08:40 CHIEF OF HOSPITAL MEDICINE Brii Are [facility] CPT-53942 Level 3 Est. Patient 09:24:42 CDT Brii Are [facility] CPT-30338 Level 3 Est. Patient 09:12:56 CDT Arie mcqueen MD [facility] CPT-25648 Level 3 Est. Patient 16:40:54 CDT Jose Zhong MD [facility] CPT-96532 Level 2 Est. Patient 13:01:13 CDT Brii Yepez ll [facility] CPT-86660 Level 3 Est. Patient 11:55:30 CHIEF OF HOSPITAL MEDICINE Jono black DO [facility] CPT-55987 Level 3 Est. Patient 09:52:36 CHIEF OF HOSPITAL MEDICINE Brii Yepez ll [facility] CPT-61941 Level 3 Est. Patient 16:25:33 CHIEF OF HOSPITAL MEDICINE Rich Rosales MD [facility] CPT-88358 Level 3 Est. Patient 20:33:55 CDT Arie mcqueen MD [facility] CPT-60453 Level 3 Est. Patient 14:18:20 CDT Rich Rosales MD [facility] CPT-07938 Level 4 Est. Patient 09:34:31 CDT Arie mcqueen MD [facility] CPT-06191 Level 3 Est. Patient 09:08:55 CHIEF OF HOSPITAL MEDICINE Liliana vincent MD PhD [facility]-13869 Level 3 Est. Patient 16:44:07 CHIEF OF HOSPITAL MEDIC[facility] Arie mcqueen MD [facility] CPT-57964 Level 3 Est. Patient 10:44:27 CDT Arie mcqueen MD [facility] CPT-72435 Level 3 Est. Patient 08:55:41 CDT Jose Zhong MD [facility] CPT-43869 Level 3 Est. Patient 18:37:31 CDT Liliana vincent MD PhD [facility]-37264 Level 3 Est. Patient 14:28:23 CDT Abelardo HERNANDEZ [facility] CPT-31636 Level 3 Est. Patient 15:18:13 [facility]ITAL [facility]IC[facility] Arie mcqueen MD [facility] CPT-79689 Level 3 Est. Patient 10:11:29 [facility] Arie mcqueen MD [facility] CPT-38915 Level 3 Est. Patient 10:55:57 [facility] Jono Cheema sofia DO [facility] CPT-11531 Level 3 Est. Patient 17:29:05 CDT Arie mcqueen MD [facility] Procedures Code Procedure Name Date Entry Date Standard Desc ription CPT-95079 Sono Soft Tissue Head and Neck - XRAY US E ONLY 17:10:14 CDT CPT-12423 Ear Wash with irrigation 17:21:41 CDT 07/04 CPT-23132 Nexplanon Removal 15:40:28 CDT CPT-26593 Sono transvag pelvis non OB uterus ovari es cervix - XRAY USE ONLY 08:58:14 [facility] CPT-27270 UA w micro - LAB USE ONLY 16:04:56 [facility] 2015 CPT-79548 Wet Prep/GEN - LAB USE ONLY 16:04:56 [facility] 20 08/10/29 CPT-07566 First Vx - Ix admin via ID I M or jet injects without counseling by physician 16:57:10 CDT CPT-75298 Fluzone Preservative Free Intramuscular Suspension 16:57:10 CDT CPT-J0696 Rocephin 1000 mg (Ceftriaxone) 11:49:23 CDT CPT-J1040 Depo Medrol 80 mg (Methyl Prednisolone A cetate) 11:49:23 CDT CPT-J1100 Decadron 8mg (Dexamethasone) 11:49:23 CDT 2 CPT-86168 Abx/Therapy Injection 11:49:23 CDT CPT-68038 Abx/Therapy Injection 11:49:23 CDT CPT-34130 Abd compl w upright 09:07:26 [facility] CPT-98978 Ear Wash 16:12:47 [facility] CPT-OV Office Visit 11:12:01 CDT CPT-OV Office Visit 15:30:23 CDT CPT-82566 Sono pelvis non OB uterus ovaries cervix 15:50:44 CDT CPT-21190 Hand comp min 3V 16:42:32 CDT CPT-78440 Abd compl w upright 12:17:01 CDT CPT-94842 Nexplanon Placement 15:07:39 [facility] CPT-73978 Removal of IUD 15:07:39 [facility] CPT-90364 TB Tubersol 12:09:32 CDT CPT-19109 TB Tubersol 13:55:43 CDT
--- OUTSIDE RECORDS SUMMARY | 2020-03-03 07:09 | XMS REPORT | Clinical Summary ---
[...] with depression 300.4 Active Brii Ramirez l [employer] Dysthymic disorder URI 465.9 Active Jono Gagnon [...] lymph node 785.6 Active Brii Are ll [employer] Enlargement of lymph nodes Influenza Vaccination for [...] MG ORAL CAPSULE 1 po tid CEPHALEXIN 844661 63026 Active Brii Russ APRN Active PROTONIX 40 MG ORAL TABLET DELAYED RELEASE 1 pill by m outh daily, for acid reflux PANTOPRAZOLE SODIUM 63635460030 Active Roseann Crawford Active AMOXICILLIN 875 MG ORAL TABLET 1 tab by mouth twice daily 1 AMOXICILLIN 95649963750 No Longer Active Brii Russ APRN Active ALPRAZOLAM 0.25 MG ORAL TABLET 1 tablet by mouth twice a day as needed for stress/anxiety ALPRAZOLAM 57140647822 Active KELLIE Escobar Active ESCITALOPRAM OXALATE 10 MG ORAL TABLET take 1 tab po qhs for mod 20 10/04/18 ESCITALOPRAM OXALATE 56716872547 Active Arie Casper MD Active TUSSIONEX PENNKINETIC ER 10-8 MG/5ML ORAL SUSPENSION E XTENDED RELEASE 5ml po q12hr PRN Cough HYDROCOD POLST-CHLORPHEN POLST 5 8980497047 No Longer Active Myrna Roberto MD Active ZITHROMAX Z-EMIL 250 MG TABS Take two tablets today and then 1 tablet daily for 4 days AZITHROMYCIN 26560143287 No Longer Active Flaco Rosales MD Active GUAIFENESIN DM 400-20 MG ORAL TABLET 1 pill by mouth t wice daily, if needed for cough DEXTROMETHORPHAN-GUAIFENESIN 24076924604 No Longer Active Rich Rosales MD Active CEFDINIR 300 MG ORAL CAPSULE 1 po BID x 10 days CEFDINIR 66861070702 No Longer Active Jillina Frazell [employer] Active CHERATUSSIN AC 100-10 MG/5ML ORAL SYRUP 1 tsp by mouth every 4 hours as needed for cough GUAIFENESIN-CODEINE 74046570244 No Longe r Active Jessica Faithnaomi [employer] Active TAMIFLU 75 MG ORAL CAPSULE 1 po BID x 5 days 0 OSELTAMIVIR PHOSPHATE 65145803171 No Longer Active Jose Zhong MD Activ e ZITHROMAX Z-EMIL 250 MG ORAL TABLET 2 today, then 1 daily for 4 d ays AZITHROMYCIN 50165473825 No Longer Active Arie Casper MD Active PROTONIX 40 MG ORAL TABLET DELAYED RELEASE 1 po q a.m. PANTOPRAZOLE SODIUM 16375559311 No Longer Active Arie Casper MD Active BACTRIM DS 800-160 MG ORAL TABLET 1 tab by mouth twice daily 201 05/02/30 TRIMETHOPRIM-SULFAMETHOXAZOLE 56875387136 No Longer Active [facility] Active NEXPLANON IMPLANT right arm subcutaneously ETONOGESTREL IMPL 62216786240 No Longer Active Brii Arell [employer] Active TUSSIONEX PENNKINETIC ER 10-8 MG/5ML ORAL SUSPENSION E XTENDED RELEASE 5ml po q12hr PRN Cough HYDROCOD POLST-CHLORPHEN POLST 5 7651635644 No Longer Active Brii Arell [employer] Active CETIRIZINE HCL 10 MG ORAL TABLET 1 po qd PRN Allergies CETIRIZINE HCL 85329425331 No Longer Active Brii Arell [employer] Activ e PREDNISONE 20 MG ORAL TABLET 2 tabs daily for 3 days, 1 tab daily for 3 days, 1/2 tab daily for 2 days PREDNISONE 80441988663 No Longer Active Arie Casper MD Active LOMOTIL 2.5-0.025 MG ORAL TABLET 1 tab po four times a day as needed for diarrhea DIPHENOXYLATE-ATROPINE 55796559234 No Lo nger Active Arie Casper MD Active ZOLOFT 50 MG ORAL TABLET 1 tablet by mouth daily 12/08 SERTRALINE HCL 25813150732 No Longer Active Arie Casper MD Ac tive NAPROXEN 500 MG ORAL TABLET Take 1 tab BID NAPR OXEN 24802862609 No Longer Active Arie Casper MD Active CEFDINIR 300 MG ORAL CAPSULE 1 po BID x 10 days CEFDINIR 36574314900 No Longer Active Brii Russ APRN Active PREDNISONE 20 MG ORAL TABLET 1 tablet daily for airway inflammat ion PREDNISONE 62756650241 No Longer Active Brii Russ APRN A ctive CEFDINIR 300 MG ORAL CAPSULE 1 po BID x 10 days CEFDINIR 02110621239 No Longer Active Jono Gagnon DO Active FLONASE 50 MCG/ACT NASAL SUSPENSION 1 spray each nostr il twice daily for allergies and runny nose until gone FLUT ICASONE PROPIONATE 88485472206 No Longer Active Jono Gagnon DO Active ALPRAZOLAM 0.25 MG ORAL TABLET 1 tablet by mouth every 8 hours as needed for stress ALPRAZOLAM 56095991948 No Longer Active Jono Gagnon DO Active ZITHROMAX Z-EMIL 250 MG ORAL TABLET 2 today, then 1 daily for 4 d ays AZITHROMYCIN 69657604854 No Longer Active Arie Casper MD Active PREDNISONE 20 MG ORAL TABLET 2 tabs daily for 3 days, 1 tab daily for 3 days, 1/2 tab daily for 2 days PREDNISONE 93609347122 No Longer Active Brii Russ APRN Active PREDNISONE 20 MG ORAL TABLET 1 tablet twice daily for 2 days, then 1 tablet once daily for 2 days PREDNISONE 90132393080 No Longer Active Brii Russ APRN Active PROMETHAZINE HCL 12.5 MG ORAL TABLET 1 tablet by mouth every 6 hours as needed for nausea/vomiting PROMETHAZINE HCL 09603988228 No L onger Active Jono Gagnon DO Active CITRATE OF MAGNESIA ORAL SOLUTION 1 bottle today for constipatio n MAGNESIUM CITRATE 82588463233 No Longer Active Jono Gagnon DO Active ZOFRAN 4 MG ORAL TABLET 1 TAB PO Q 6 HRS PRN NAUSEA 07/10/15 ONDANSETRON HCL 18988118399 No Longer Active Brii Russ APRN Acti ve LOMOTIL 2.5-0.025 MG ORAL TABLET 1 to 2 four times a day as needed for diarrhea DIPHENOXYLATE-ATROPINE 04276051564 No Longer Active January Russ APRN Active AMOXICILLIN 500 MG ORAL TABLET 2 tabs twice a day for 10 days 07/09/11 AMOXICILLIN 44939899480 No Longer Active Brii Russ APRN Active CYCLOBENZAPRINE HCL 10 MG ORAL TABLET 1/2 - 1 tablet b y mouth three times daily as needed for muscle spasm/pain CYCLOBENZAPRINE HCL 55077371373 No Longer Active Arie Casper MD Active LOMOTIL 2.5-0.025 MG ORAL TABLET 1 to 2 four times a day as needed for diarrhea DIPHENOXYLATE-ATROPINE 92098965344 No Longer Active Fozia Casper MD Active MACROBID 100 MG ORAL CAPSULE 1 cap by mouth twice daily NITROFURANTOIN MONOHYD MACRO 34036605179 No Longer Active Arie Casper MD Active ZYRTEC ALLERGY 10 MG ORAL CAPSULE 1 po qd CE TIRIZINE HCL 87314815018 No Longer Active Arie Casper MD Active AZITHROMYCIN 250 MG ORAL TABLET 2 po qd x 1 day, then 1 po q d x 4 days AZITHROMYCIN 17259263979 No Longer Active Jessica salgado APRN Active PREDNISONE 20 MG ORAL TABLET 2 tabs daily for 3 days, 1 tab daily for 3 days, 1/2 tab daily for 2 days PREDNISONE 31762920089 No Longer Active Jessica Heaton APRN Active PROMETHAZINE HCL 25 MG ORAL TABLET 1 four times a day as nee ded for vomiting PROMETHAZINE HCL 76802967786 No Longer Active Myrna Roberto MD Active BACTRIM DS 800-160 MG ORAL TABLET 1 twice a day 05/30 SULFAMETHOXAZOLE-TRIMETHOPRIM 86487657395 No Longer Active Myrna Roberto MD Active VICKS DAYQUIL SEVERE COLD/FLU TABLET 1 tab every 6 hours prn 201 02/22/17 [id number] TABS 12902150097 No Longer Active Chris Roberto MD Active GUAIFENESIN-CODEINE 100-10 MG/5ML ORAL SYRUP 2 tsp every 6 hours prn GUAIFENESIN-CODEINE 06893564203 No Longer Active Myrna Roberto MD Active NAPROXEN 500 MG ORAL TABLET one tab PO BID NAPR OXEN 98345165090 No Longer Active Myrna Roberto MD Active AUGMENTIN 875-125 MG ORAL TABLET 1 tab by mouth twice daily with food AMOXICILLIN-POT CLAVULANATE 45664866878 No Longer Act zaid Liliana Estrada MD PhD Active AMOXICILLIN 500 MG ORAL CAPSULE 1 tab by mouth 3 times daily 201 02/21/05 AMOXICILLIN 79031188215 No Longer Active Liliana Estrada MD PhD Active TESSALON PERLES 100 MG ORAL CAPSULE 1 tablet by mouth 3 times da cory BENZONATATE 83445518260 No Longer Active Liliana Estrada MD PhD Active FLAGYL 500 MG ORAL TABLET 1 tablet by mouth two times daily 2014 METRONIDAZOLE 60729589971 No Longer Active Nilam Raida Ac tive ZITHROMAX 250 MG ORAL TABLET 2 po today, then 1 po q days 2-5 20 06/08/16 AZITHROMYCIN 44503349470 No Longer Active Arie Casper MD Active VITAMINS 0.8 MG ORAL TABLET take 1 tab po qday [id number] 10158347451 No Longer Active Arie Casper MD Active IBUPROFEN 800 MG ORAL TABLET take one po Q 8 hours 201 02/01/16 IBUPROFEN 47763525461 No Longer Active Arie Casper MD Acti ve [facility] TUSSIN COUGH/COLD CF 5-10-100 MG/5ML ORAL LIQUID 2 teasp oons every 4 hours [id number] 74360312803 No Longer Active Blaine Casper MD Active COMTREX COLD/COUGH DAY/NITE MS 5-2-10-325 MG ORAL 2 caps deja ry 4 hours [id number] 47268423104 No Longer Active Landon Casper MD Active CHLORASEPTIC MAX SORE THROAT 15-10 MG MOUTH/THROAT LOZENGE 1 every 2 hours prn BENZOCAINE-MENTHOL 58504205792 No Longer Active Arie Casper MD Active PREDNISONE 20 MG ORAL TABLET 2 tabs daily for 3 days, 1 tab daily for 3 days, 1/2 tab daily for 2 days PREDNISONE 00779028154 No Longer Active Jose Zhong MD Active AZITHROMYCIN 250 MG ORAL TABLET 2 po qd x 1 day, then 1 po q d x 4 days AZITHROMYCIN 83774252417 No Longer Active Jose Mcwilliams MD Active ZOFRAN ODT 4 MG ORAL TABLET DISINTEGRATING 1 po q6hr PRN Nausea ONDANSETRON 07843296697 No Longer Active Rich Rosales MD Active ZOFRAN 4 MG ORAL TABLET 1 tablet every 4 hours ONDANSETRON HCL 99415089567 No Longer Active Rich Rosales MD Activ e MUCINEX 600 MG ORAL TABLET EXTENDED RELEASE 12 HOUR Ta ke 1-2 tablets every 12 hours GUAIFENESIN 94472630265 No Longer Active Rich Rosales MD Active BACTRIM 400-80 MG ORAL TABLET take one po BID SULFAMETHOXAZOLE-TRIMETHOPRIM 31031335886 No Longer Active Abelardo HERNANDEZ Active AZITHROMYCIN 500 MG ORAL TABLET 1 PO q day x 6 days 03/02/23 AZITHROMYCIN 16107336099 No Longer Active Tin HERNANDEZ Activ e ZITHROMAX 250 MG ORAL TABLET 2 po today, then 1 po q days 2-5 20 10/03/08 AZITHROMYCIN 91293127455 No Longer Active Arie Casper MD Active ZITHROMAX 250 MG ORAL TABLET 2 po today, then 1 po q days 2-5 20 09/23/25 AZITHROMYCIN 90050052641 No Longer Active Arie Casper MD Active AMOXICILLIN 500 MG ORAL CAPSULE 1 tab by mouth 3 times daily 201 11/24/09 AMOXICILLIN 50217826275 No Longer Active Arie Casper MD Active BACTRIM DS 800-160 MG ORAL TABLET 1 tab by mouth twice daily 201 11/03/14 TRIMETHOPRIM-SULFAMETHOXAZOLE 67135155248 No Longer Active Fozia Casper MD Active AMOXICILLIN 500 MG ORAL TABLET take 1 tab po TID 08/05 AMOXICILLIN 81010893596 No Longer Active Arie Casper MD Acti ve BACTRIM DS 800-160 MG ORAL TABLET 1 tab by mouth twice daily 201 11/03/14 BACTRIM DS 800-160 MG ORAL TABLET 662020 TRIMETHOPRIM-SULFAMETHOXAZOLE Inactive MUCINEX 600 MG ORAL TABLET EXTENDED RELEASE 12 HOUR Ta ke 1-2 tablets every 12 hours MUCINEX 600 MG ORAL TABLET EXTENDED RELEA SE 12 HOUR GUAIFENESIN Inactive ZOFRAN 4 MG ORAL TABLET 1 tablet every 4 hours ZOFRAN 4 MG ORAL TABLET 000876 ONDANSETRON HCL Inactive ZOFRAN ODT 4 MG ORAL TABLET DISINTEGRATING 1 po q6hr PRN Nausea ZOFRAN ODT 4 MG ORAL TABLET DISINTEGRATING 190854 ONDAN SETRON Inactive CHLORASEPTIC MAX SORE THROAT 15-10 MG MOUTH/THROAT LOZENGE 1 every 2 hours prn CHLORASEPTIC MAX SORE THROAT 15-10 MG MOUTH/THROAT LOZENGE BENZOCAINE-MENTHOL Inactive COMTREX COLD/COUGH DAY/NITE MS 5-2-10-325 MG ORAL 2 caps deja ry 4 hours COMTREX COLD/COUGH DAY/NITE MS 5-2-10-325 MG ORA L [id number] Inactive [facility] TUSSIN COUGH/COLD CF 5-10-100 MG/5ML ORAL LIQUID 2 teasp oons every 4 hours [facility] TUSSIN COUGH/COLD CF 5-10-100 MG/5ML ORAL LI QUID [id number] Inactive IBUPROFEN 800 MG ORAL TABLET take one po Q 8 hours 201 02/01/16 IBUPROFEN 800 MG ORAL TABLET 515462 IBUPROFEN Inactive VITAMINS 0.8 MG ORAL TABLET take 1 tab po qday VITAMINS 0.8 MG ORAL TABLET [id number] E-FA Inactive TESSALON PERLES 100 MG ORAL CAPSULE 1 tablet by mouth 3 times da cory TESSALON PERLES 100 MG ORAL CAPSULE 761527 BENZONATATE Inactive AMOXICILLIN 500 MG ORAL CAPSULE 1 tab by mouth 3 times daily 201 02/21/05 AMOXICILLIN 500 MG ORAL CAPSULE 318734 AMOXICILLIN Inactive GUAIFENESIN-CODEINE 100-10 MG/5ML ORAL SYRUP 2 tsp every 6 hours prn GUAIFENESIN-CODEINE 100-10 MG/5ML ORAL SYRUP 012344 GUAIFENESIN-CODEINE Inactive VICKS DAYQUIL SEVERE COLD/FLU TABLET 1 tab every 6 hours prn 201 02/22/17 VICKS DAYQUIL SEVERE COLD/FLU TABLET PHENYLEPHRI [id number] TABS Inactive BACTRIM DS 800-160 MG ORAL TABLET 1 twice a day 05/30 BACTRIM DS 800-160 MG ORAL TABLET 961120 SULFAMETHOXAZOLE-TRIMETHOPRIM Inactiv e PROMETHAZINE HCL 25 MG ORAL TABLET 1 four times a day as nee ded for vomiting PROMETHAZINE HCL 25 MG ORAL TABLET 167206 PROMETHAZINE HCL Inactive ZYRTEC ALLERGY 10 MG ORAL CAPSULE 1 po qd ZYRTEC ALLERGY 10 MG ORAL CAPSULE CETIRIZINE HCL Inactive MACROBID 100 MG ORAL CAPSULE 1 cap by mouth twice daily MACROBID 100 MG ORAL CAPSULE 7865209 NITROFURANTOIN MONOHYD MACRO In active LOMOTIL 2.5-0.025 MG ORAL TABLET 1 to 2 four times a day as needed for diarrhea LOMOTIL 2.5-0.025 MG ORAL TABLET 1235002 DIPHENOXYLATE-ATROPINE Inactive CYCLOBENZAPRINE HCL 10 MG ORAL TABLET 1/2 - 1 tablet b y mouth three times daily as needed for muscle spasm/pain CYCLOBEN ZAPRINE HCL 10 MG ORAL TABLET 440828 CYCLOBENZAPRINE HCL Inactive AMOXICILLIN 500 MG ORAL TABLET 2 tabs twice a day for 10 days 07/09/11 AMOXICILLIN 500 MG ORAL TABLET 371656 AMOXICILLIN I nactive LOMOTIL 2.5-0.025 MG ORAL TABLET 1 to 2 four times a day as needed for diarrhea LOMOTIL 2.5-0.025 MG ORAL TABLET 1678257 DIPHENOXYLATE-ATROPINE Inactive ZOFRAN 4 MG ORAL TABLET 1 TAB PO Q 6 HRS PRN NAUSEA 07/10/15 ZOFRAN 4 MG ORAL TABLET 172571 ONDANSETRON HCL Inactive CITRATE OF MAGNESIA ORAL SOLUTION 1 bottle today for constipatio n CITRATE OF MAGNESIA ORAL SOLUTION 9835929 MAGNESIUM CITR ATE Inactive PROMETHAZINE HCL 12.5 MG ORAL TABLET 1 tablet by mouth every 6 hours as needed for nausea/vomiting PROMETHAZINE HCL 12.5 MG ORA L TABLET 565000 PROMETHAZINE HCL Inactive PREDNISONE 20 MG ORAL TABLET 1 tablet twice daily for 2 days, then 1 tablet once daily for 2 days PREDNISONE 20 MG ORAL TABLET 638778 PREDNISONE Inactive ALPRAZOLAM 0.25 MG ORAL TABLET 1 tablet by mouth every 8 hours as needed for stress ALPRAZOLAM 0.25 MG ORAL TABLET 720407 ALPRA ZOLAM Inactive FLONASE 50 MCG/ACT NASAL SUSPENSION 1 spray each nostr il twice daily for allergies and runny nose until gone FLON ASE 50 MCG/ACT NASAL SUSPENSION 9624055 FLUTICASONE PROPIONATE Inactive PREDNISONE 20 MG ORAL TABLET 1 tablet daily for airway inflammat ion PREDNISONE 20 MG ORAL TABLET 163638 PREDNISONE Arlen ctive NAPROXEN 500 MG ORAL TABLET Take 1 tab BID NAPROXEN 500 MG ORAL TABLET 334506 NAPROXEN Inactive ZOLOFT 50 MG ORAL TABLET 1 tablet by mouth daily 12/08 ZOLOFT 50 MG ORAL TABLET 663487 SERTRALINE HCL Inactive LOMOTIL 2.5-0.025 MG ORAL TABLET 1 tab po four times a day as needed for diarrhea LOMOTIL 2.5-0.025 MG ORAL TABLET 2544974 DIPHENOXYLATE-ATROPINE Inactive CETIRIZINE HCL 10 MG ORAL TABLET 1 po qd PRN Allergies CETIRIZINE HCL 10 MG ORAL TABLET 0459083 CETIRIZINE HCL Inactiv e TUSSIONEX PENNKINETIC ER 10-8 MG/5ML ORAL SUSPENSION E XTENDED RELEASE 5ml po q12hr PRN Cough TUSSIONEX PENNKINETI C ER 10-8 MG/5ML ORAL SUSPENSION EXTENDED RELEASE HYDROCOD POLST-CHLORPHEN POLST I nactive NEXPLANON IMPLANT right arm subcutaneously NEXPLANON IMPLANT ETONOGESTREL IMPL Inactive PROTONIX 40 MG ORAL TABLET DELAYED RELEASE 1 po q a.m. PROTONIX 40 MG ORAL TABLET DELAYED RELEASE 785043 PANTOPRAZOLE SODI UM Inactive CHERATUSSIN AC 100-10 MG/5ML ORAL SYRUP 1 tsp by mouth every 4 hours as needed for cough CHERATUSSIN AC 100-10 MG/5ML ORAL SYRUP 9 26781 GUAIFENESIN-CODEINE Inactive GUAIFENESIN DM 400-20 MG ORAL TABLET 1 pill by mouth t wice daily, if needed for cough GUAIFENESIN DM 400-20 MG ORAL TABLET 1147 473 DEXTROMETHORPHAN-GUAIFENESIN Inactive TUSSIONEX PENNKINETIC ER 10-8 MG/5ML ORAL SUSPENSION E XTENDED RELEASE 5ml po q12hr PRN Cough TUSSIONEX PENNKINETI C ER 10-8 MG/5ML ORAL SUSPENSION EXTENDED RELEASE HYDROCOD POLST-CHLORPHEN POLST I nactive AMOXICILLIN 500 MG ORAL TABLET take 1 tab po TID 08/05 AMOXICILLIN 500 MG ORAL TABLET 112228 AMOXICILLIN Inactive AMOXICILLIN 500 MG ORAL CAPSULE 1 tab by mouth 3 times daily 201 11/24/09 AMOXICILLIN 500 MG ORAL CAPSULE 100101 AMOXICILLIN Inactive ZITHROMAX 250 MG ORAL TABLET 2 po today, then 1 po q days 2-5 20 09/23/25 ZITHROMAX 250 MG ORAL TABLET 158161 AZITHROMYCIN Arlen ctive ZITHROMAX 250 MG ORAL TABLET 2 po today, then 1 po q days 2-5 20 10/03/08 ZITHROMAX 250 MG ORAL TABLET 396249 AZITHROMYCIN Arlen ctive AZITHROMYCIN 500 MG ORAL TABLET 1 PO q day x 6 days 03/02/23 AZITHROMYCIN 500 MG ORAL TABLET 8085671 AZITHROMYCIN Inactive BACTRIM 400-80 MG ORAL TABLET take one po BID BACTRIM 400- 80 MG ORAL TABLET 079762 SULFAMETHOXAZOLE-TRIMETHOPRIM Inactive AZITHROMYCIN 250 MG ORAL TABLET 2 po qd x 1 day, then 1 po q d x 4 days AZITHROMYCIN 250 MG ORAL TABLET 328175 AZITHROMY ALLISON Inactive PREDNISONE 20 MG ORAL TABLET 2 tabs daily for 3 days, 1 tab daily for 3 days, 1/2 tab daily for 2 days PREDNISONE 20 MG ORAL T ABLET 149054 PREDNISONE Inactive ZITHROMAX 250 MG ORAL TABLET 2 po today, then 1 po q days 2-5 20 06/08/16 ZITHROMAX 250 MG ORAL TABLET 188028 AZITHROMYCIN [place] ctive FLAGYL 500 MG ORAL TABLET 1 tablet by mouth two times daily 2014 FLAGYL 500 MG ORAL TABLET 466840 METRONIDAZOLE Inacti ve AUGMENTIN 875-125 MG ORAL TABLET 1 tab by mouth twice daily with food AUGMENTIN 875-125 MG ORAL TABLET 344809 AMOXICIL ELSA-POT CLAVULANATE Inactive NAPROXEN 500 MG ORAL TABLET one tab PO BID NAPROXEN 500 MG ORAL TABLET 488593 NAPROXEN Inactive PREDNISONE 20 MG ORAL TABLET 2 tabs daily for 3 days, 1 tab daily for 3 days, 1/2 tab daily for 2 days PREDNISONE 20 MG ORAL T ABLET 170496 PREDNISONE Inactive AZITHROMYCIN 250 MG ORAL TABLET 2 po qd x 1 day, then 1 po q d x 4 days AZITHROMYCIN 250 MG ORAL TABLET 479459 AZITHROMY ALLISON Inactive PREDNISONE 20 MG ORAL TABLET 2 tabs daily for 3 days, 1 tab daily for 3 days, 1/2 tab daily for 2 days PREDNISONE 20 MG ORAL T ABLET 381485 PREDNISONE Inactive ZITHROMAX Z-EMIL 250 MG ORAL TABLET 2 today, then 1 daily for 4 d ays ZITHROMAX Z-EMIL 250 MG ORAL TABLET 299703 AZITHROMYCIN Inactive CEFDINIR 300 MG ORAL CAPSULE 1 po BID x 10 days 12/18 CEFDINIR 300 MG ORAL CAPSULE 436773 CEFDINIR Inactive CEFDINIR 300 MG ORAL CAPSULE 1 po BID x 10 days CEFDINIR 300 MG ORAL CAPSULE 178528 CEFDINIR Inactive PREDNISONE 20 MG ORAL TABLET 2 tabs daily for 3 days, 1 tab daily for 3 days, 1/2 tab daily for 2 days PREDNISONE 20 MG ORAL T ABLET 121886 PREDNISONE Inactive BACTRIM DS 800-160 MG ORAL TABLET 1 tab by mouth twice daily 201 05/02/30 BACTRIM DS 800-160 MG ORAL TABLET 071904 TRIMETHOPRIM-SULFAMETHOXAZOLE Inactive ZITHROMAX Z-EMIL 250 MG ORAL TABLET 2 today, then 1 daily for 4 d ays ZITHROMAX Z-EMIL 250 MG ORAL TABLET 045904 AZITHROMYCIN Inactive TAMIFLU 75 MG ORAL CAPSULE 1 po BID x 5 days 0 TAMIFLU 75 MG ORAL CAPSULE 419064 OSELTAMIVIR PHOSPHATE Inactive CEFDINIR 300 MG ORAL CAPSULE 1 po BID x 10 days 01/03 CEFDINIR 300 MG ORAL CAPSULE 166394 CEFDINIR Inactive ZITHROMAX Z-EMIL 250 MG TABS Take two tablets today and then 1 tablet daily for 4 days ZITHROMAX Z-EMIL 250 MG TABS 171906 AZITHROM YCIN Inactive AMOXICILLIN 875 MG ORAL TABLET 1 tab by mouth twice daily AMOXICILLIN 875 MG ORAL TABLET 006708 AMOXICILLIN Inactive Advance Directives Directive Description Start [...] Negative Encounters Code Encounter Date Provider Facility CPT-62637 [id number] Vst-Est Level III 09:41:31 CDT Arie Casper MD [facility] CPT-20261 [id number] Vst-Est Level III 18:20:11 CDT Me lobito Russ APRN [facility] CPT-49089 [id number] Vst-Est Level III 17:21:41 CDT Me lobito Russ [facility] CPT-37057 [id number] Vst-Est Level IV 13:30:22 C DT Arie Casper MD [facility] CPT-59219 Level 4 Est. Patient 13:05:26 CDT Myrna Real Bernabe maldonado MD [facility]-78513 [id number] Vst-Est Level IV 20:50:21 C DT Arie Casper MD [facility] CPT-43292 Level 3 Est. Patient 11:49:34 SHERIFF Jessica boyd [facility] CPT-14294 Level 3 Est. Patient 14:55:50 SHERIFF Jose Zhong MD [facility] CPT-52889 Level 3 Est. Patient 10:21:41 SHERIFF Arie mcqueen MD [facility] CPT-97216 Level 3 Est. Patient 11:35:15 SHERIFF Arie mcqueen MD [facility] CPT-20771 Level 3 Est. Patient 15:40:28 CDT Brii Are [facility] CPT-27983 Level 3 Est. Patient 16:40:36 CDT Arie mcqueen MD [facility] CPT-41269 Level 4 Est. Patient 15:29:22 SHERIFF Arie mcqueen MD [facility] CPT-41828 Level 3 Est. Patient 15:18:16 SHERIFF Jono black DO [facility] CPT-79934 Level 4 Est. Patient 12:08:40 SHERIFF Brii Are [facility] CPT-82337 Level 3 Est. Patient 09:24:42 CDT Brii Are [facility] CPT-32510 Level 3 Est. Patient 09:12:56 CDT Arie mcqueen MD [facility] CPT-58417 Level 3 Est. Patient 16:40:54 CDT Jose Zhong MD [facility] CPT-47576 Level 2 Est. Patient 13:01:13 CDT Brii Yepez ll [facility] CPT-73086 Level 3 Est. Patient 11:55:30 SHERIFF Jono black DO [facility] CPT-24826 Level 3 Est. Patient 09:52:36 SHERIFF Brii Yepez ll [facility] CPT-10414 Level 3 Est. Patient 16:25:33 SHERIFF Rich Rosales MD [facility]-34757 Level 3 Est. Patient 20:33:55 CDT Arie mcqueen MD [facility] CPT-27529 Level 3 Est. Patient 14:18:20 CDT Rich Rosales MD [facility] CPT-60832 Level 4 Est. Patient 09:34:31 CDT Arie mcqueen MD [facility] CPT-78486 Level 3 Est. Patient 09:08:55 SHERIFF Liliana vincent MD PhD [facility]-29139 Level 3 Est. Patient 16:44:07 SHERIFF Arie mcqueen MD [facility] CPT-14612 Level 3 Est. Patient 10:44:27 CDT Arie mcqueen MD [facility] CPT-13906 Level 3 Est. Patient 08:55:41 CDT Jose Zhong MD [facility] CPT-41252 Level 3 Est. Patient 18:37:31 CDT Liliana vincent MD PhD [facility]-82870 Level 3 Est. Patient 14:28:23 CDT Abelardo HERNANDEZ [facility] CPT-55082 Level 3 Est. Patient 15:18:13 SHERIFF Arie mcqueen MD [facility] CPT-00524 Level 3 Est. Patient 10:11:29 SHERIFF Arie mcqueen MD [facility] CPT-24159 Level 3 Est. Patient 10:55:57 SHERIFF Jono Sarika Eliot sofia DO [facility] CPT-21721 Level 3 Est. Patient 17:29:05 CDT Arie mcqueen MD [facility] Procedures Code Procedure Name Date Entry Date Standard Desc ription CPT-86148 Sono Soft Tissue Head and Neck - XRAY US E ONLY 17:10:14 CDT CPT-08975 Ear Wash with irrigation 17:21:41 CDT 07/04 CPT-29536 Nexplanon Removal 15:40:28 CDT CPT-20852 Sono transvag pelvis non OB uterus ovari es cervix - XRAY USE ONLY 08:58:14 SHERIFF CPT-94599 UA w micro - LAB USE ONLY 16:04:56 SHERIFF 2015 CPT-38644 Wet Prep/GEN - LAB USE ONLY 16:04:56 SHERIFF 20 08/10/29 CPT-95498 First Vx - Ix admin via ID I M or jet injects without counseling by physician 16:57:10 CDT CPT-72478 Fluzone Preservative Free Intramuscular Suspension 16:57:10 CDT CPT-J0696 Rocephin 1000 mg (Ceftriaxone) 11:49:23 CDT CPT-J1040 Depo Medrol 80 mg (Methyl Prednisolone A cetate) 11:49:23 CDT CPT-J1100 Decadron 8mg (Dexamethasone) 11:49:23 CDT 2 CPT-41459 Abx/Therapy Injection 11:49:23 CDT CPT-66940 Abx/Therapy Injection 11:49:23 CDT CPT-06769 Abd compl w upright 09:07:26 SHERIFF CPT-14854 Ear Wash 16:12:47 SHERIFF CPT-OV Office Visit 11:12:01 CDT CPT-OV Office Visit 15:30:23 CDT CPT-92044 Sono pelvis non OB uterus ovaries cervix 15:50:44 CDT CPT-24349 Hand comp min 3V 16:42:32 CDT CPT-72846 Abd compl w upright 12:17:01 CDT CPT-43471 Nexplanon Placement 15:07:39 SHERIFF CPT-14960 Removal of IUD 15:07:39 SHERIFF CPT-98893 TB Tubersol 12:09:32 CDT CPT-32365 TB Tubersol 13:55:43 CDT
--- OUTSIDE RECORDS SUMMARY | 2020-03-03 07:09 | XMS REPORT | Clinical Summary ---
Author Author Admin, Diamante Marcelo Organization [facility] Address Unknown Phone Unavailable Allergies, Adverse Reactions, [...] respiratory manifestations Sinusitis 473.9 Active Jessica Heaton [employer] Unspecified sinusitis (chronic) Other mixed anxiety 300.00 [...] Brii Russ APRN Hypertrophy of tonsils alone FH COLON CANCER ICD-V16.0 Inactive Jose Zhong MD FH DIABETES ICD-V18.0 Inactive Jose Zhong MD 201 01/29/08 ACUTE FRONTAL SINUSITIS ICD-461.1 Inactive Meghan Estrada MD PhD CYSTITIS ICD-595.9 Inactive Liliana Estrada MD Ph D SINUSITIS ICD-473.9 Inactive Liliana Estrada MD Ph D IUD removal ICD-V25.42 Inactive Liliana Estrada MD PhD Diarrhea ICD-787.91 Inactive Jose Marcelo Thumb pain, right ICD-729.5 Inactive Jose pelaoy MD Sinusitis, acute ICD-461.9 Inactive Liliana cheema MD PhD Fever ICD-780.60 Inactive Liliana Estrada MD PhD 20 08/12/16 Symptom, cough ICD-786.2 Inactive Liliana Estrada MD PhD Vaginal discharge ICD-623.5 Inactive Liliana lares MD PhD Urinary frequency ICD-788.41 Inactive Jose Zhong MD Vaginal bleeding ICD-623.8 Cynthia Mcwilliams MD BREAST CANCER ICD-V16.3 Inactive Jose Marcelo Medication List Medication Instructions Start Date Stop Date Generic Name NDC Status Provider Patient Instruction PROTONIX 40 MG ORAL TABLET DELAYED RELEASE 1 pill by m outh daily, for acid reflux PANTOPRAZOLE SODIUM [id number] Active Roseann Crawford Active AMOXICILLIN 875 MG ORAL TABLET 1 tab by mouth twice daily 1 AMOXICILLIN 31116874036 Active Brii Russ APRN Active ALPRAZOLAM 0.25 MG ORAL TABLET 1 tablet by mouth twice a day as needed for stress/anxiety ALPRAZOLAM 52284988407 Active Arie whittington MD Active ESCITALOPRAM OXALATE 10 MG ORAL TABLET take 1 tab po qhs for mod 20 10/04/18 ESCITALOPRAM OXALATE 96746331144 Active Arie Casper MD Active TUSSIONEX PENNKINETIC ER 10-8 MG/5ML ORAL SUSPENSION E XTENDED RELEASE 5ml po q12hr PRN Cough HYDROCOD POLST-CHLORPHEN POLST 5 1812398404 No Longer Active Myrna Roberto MD Active ZITHROMAX Z-EMIL 250 MG TABS Take two tablets today and then 1 tablet daily for 4 days AZITHROMYCIN 44691587652 No Longer Active Flaco Rosales MD Active GUAIFENESIN DM 400-20 MG ORAL TABLET 1 pill by mouth t wice daily, if needed for cough DEXTROMETHORPHAN-GUAIFENESIN 39847007845 No Longer Active Rich Rosales MD Active CEFDINIR 300 MG ORAL CAPSULE 1 po BID x 10 days CEFDINIR 52857308160 No Longer Active Jessica Heaton APRN Active CHERATUSSIN AC 100-10 MG/5ML ORAL SYRUP 1 tsp by mouth every 4 hours as needed for cough GUAIFENESIN-CODEINE 01683287271 No Longe r Active Jessica Heaton APRN Active TAMIFLU 75 MG ORAL CAPSULE 1 po BID x 5 days 0 OSELTAMIVIR PHOSPHATE 83112588167 No Longer Active Jose Zhong MD Activ e ZITHROMAX Z-EMIL 250 MG ORAL TABLET 2 today, then 1 daily for 4 d ays AZITHROMYCIN 81366246091 No Longer Active Arie Casper MD Active PROTONIX 40 MG ORAL TABLET DELAYED RELEASE 1 po q a.m. PANTOPRAZOLE SODIUM 45473367942 No Longer Active Arie Casper MD Active BACTRIM DS 800-160 MG ORAL TABLET 1 tab by mouth twice daily 201 05/02/30 TRIMETHOPRIM-SULFAMETHOXAZOLE 49580197945 No Longer Active R [facility] Active NEXPLANON IMPLANT right arm subcutaneously ETONOGESTREL IMPL 80980319191 No Longer Active Brii Areboris [employer] Active TUSSIONEX PENNKINETIC ER 10-8 MG/5ML ORAL SUSPENSION E XTENDED RELEASE 5ml po q12hr PRN Cough HYDROCOD POLST-CHLORPHEN POLST 5 0003010640 No Longer Active Brii Areboris [employer] Active CETIRIZINE HCL 10 MG ORAL TABLET 1 po qd PRN Allergies CETIRIZINE HCL 33447471985 No Longer Active Brii Russ [employer] Activ e PREDNISONE 20 MG ORAL TABLET 2 tabs daily for 3 days, 1 tab daily for 3 days, 1/2 tab daily for 2 days PREDNISONE 51261644803 No Longer Active Arie Casper MD Active LOMOTIL 2.5-0.025 MG ORAL TABLET 1 tab po four times a day as needed for diarrhea DIPHENOXYLATE-ATROPINE 07569077136 No Lo nger Active Arie Casper MD Active ZOLOFT 50 MG ORAL TABLET 1 tablet by mouth daily 12/08 SERTRALINE HCL 26860848187 No Longer Active Arie Casper MD Ac tive NAPROXEN 500 MG ORAL TABLET Take 1 tab BID NAPR OXEN 93631016746 No Longer Active Arie Casper MD Active CEFDINIR 300 MG ORAL CAPSULE 1 po BID x 10 days CEFDINIR 71308898856 No Longer Active Brii Areboris CABRERA Active PREDNISONE 20 MG ORAL TABLET 1 tablet daily for airway inflammat ion PREDNISONE 10562357934 No Longer Active Brii Russ APRN A ctive CEFDINIR 300 MG ORAL CAPSULE 1 po BID x 10 days CEFDINIR 87628985765 No Longer Active Jono Gagnon DO Active FLONASE 50 MCG/ACT NASAL SUSPENSION 1 spray each nostr il twice daily for allergies and runny nose until gone FLUT ICASONE PROPIONATE 66353041519 No Longer Active Jono Gagnon DO Active ALPRAZOLAM 0.25 MG ORAL TABLET 1 tablet by mouth every 8 hours as needed for stress ALPRAZOLAM 03038285173 No Longer Active Jono Gagnon DO Active ZITHROMAX Z-EMIL 250 MG ORAL TABLET 2 today, then 1 daily for 4 d ays AZITHROMYCIN 55927537288 No Longer Active Arie Casper MD Active PREDNISONE 20 MG ORAL TABLET 2 tabs daily for 3 days, 1 tab daily for 3 days, 1/2 tab daily for 2 days PREDNISONE 18335003284 No Longer Active Brii Russ APRN Active PREDNISONE 20 MG ORAL TABLET 1 tablet twice daily for 2 days, then 1 tablet once daily for 2 days PREDNISONE 68129943437 No Longer Active Brii Russ APRN Active PROMETHAZINE HCL 12.5 MG ORAL TABLET 1 tablet by mouth every 6 hours as needed for nausea/vomiting PROMETHAZINE HCL 96660178174 No L onger Active Jono Gagnon DO Active CITRATE OF MAGNESIA ORAL SOLUTION 1 bottle today for constipatio n MAGNESIUM CITRATE 95026184053 No Longer Active Jono Gagnon DO Active ZOFRAN 4 MG ORAL TABLET 1 TAB PO Q 6 HRS PRN NAUSEA 20 07/10/15 ONDANSETRON HCL 73031231388 No Longer Active Brii Russ APRN Acti ve LOMOTIL 2.5-0.025 MG ORAL TABLET 1 to 2 four times a day as needed for diarrhea DIPHENOXYLATE-ATROPINE 00236681641 No Longer Active January Russ APRN Active AMOXICILLIN 500 MG ORAL TABLET 2 tabs twice a day for 10 days 20 07/09/11 AMOXICILLIN 58871845020 No Longer Active Brii Russ APRN Active CYCLOBENZAPRINE HCL 10 MG ORAL TABLET 1/2 - 1 tablet b y mouth three times daily as needed for muscle spasm/pain CYCLOBENZAPRINE HCL 75093166741 No Longer Active Arie Casper MD Active LOMOTIL 2.5-0.025 MG ORAL TABLET 1 to 2 four times a day as needed for diarrhea DIPHENOXYLATE-ATROPINE 27122725565 No Longer Active Fozia Casper MD Active MACROBID 100 MG ORAL CAPSULE 1 cap by mouth twice daily NITROFURANTOIN MONOHYD MACRO 80948096390 No Longer Active Arie Casper MD Active ZYRTEC ALLERGY 10 MG ORAL CAPSULE 1 po qd CE TIRIZINE HCL 03924793192 No Longer Active Arie Casper MD Active AZITHROMYCIN 250 MG ORAL TABLET 2 po qd x 1 day, then 1 po q d x 4 days AZITHROMYCIN 02565079237 No Longer Active Jillina Marcell salgado [employer] Active PREDNISONE 20 MG ORAL TABLET 2 tabs daily for 3 days, 1 tab daily for 3 days, 1/2 tab daily for 2 days PREDNISONE 34181925429 No Longer Active Jillarlen Heaton [employer] Active PROMETHAZINE HCL 25 MG ORAL TABLET 1 four times a day as nee ded for vomiting PROMETHAZINE HCL 82602601848 No Longer Active Myrna Roberto MD Active BACTRIM DS 800-160 MG ORAL TABLET 1 twice a day 05/30 SULFAMETHOXAZOLE-TRIMETHOPRIM 97993283827 No Longer Active Myrna Roberto MD Active VICKS DAYQUIL SEVERE COLD/FLU TABLET 1 tab every 6 hours prn 201 02/22/17 [id number] TABS 58942724792 No Longer Active Chris Roberto MD Active GUAIFENESIN-CODEINE 100-10 MG/5ML ORAL SYRUP 2 tsp every 6 hours prn GUAIFENESIN-CODEINE 16361705552 No Longer Active Myrna Roberto MD Active NAPROXEN 500 MG ORAL TABLET one tab PO BID NAPR OXEN 15025218401 No Longer Active Myrna Roberto MD Active AUGMENTIN 875-125 MG ORAL TABLET 1 tab by mouth twice daily with food AMOXICILLIN-POT CLAVULANATE 49166831709 No Longer Act zaid Liliana Estrada MD PhD Active AMOXICILLIN 500 MG ORAL CAPSULE 1 tab by mouth 3 times daily 201 02/21/05 AMOXICILLIN 91896525790 No Longer Active Liliana Estrada MD PhD Active TESSALON PERLES 100 MG ORAL CAPSULE 1 tablet by mouth 3 times da cory BENZONATATE 37109493803 No Longer Active Liliana Estrada MD PhD Active FLAGYL 500 MG ORAL TABLET 1 tablet by mouth two times daily 2014 METRONIDAZOLE 48186620066 No Longer Active Nilam Raida Ac tive ZITHROMAX 250 MG ORAL TABLET 2 po today, then 1 po q days 2-5 20 06/08/16 AZITHROMYCIN 01207718867 No Longer Active Arie Casper MD Active VITAMINS 0.8 MG ORAL TABLET take 1 tab po qday [id number] 58251328953 No Longer Active Arie Casper MD Active IBUPROFEN 800 MG ORAL TABLET take one po Q 8 hours 201 02/01/16 IBUPROFEN 96475004452 No Longer Active Arie Casper MD Acti ve [facility] TUSSIN COUGH/COLD CF 5-10-100 MG/5ML ORAL LIQUID 2 teasp oons every 4 hours [id number] 57438923090 No Longer Active Blaine Casper MD Active COMTREX COLD/COUGH DAY/NITE MS 5-2-10-325 MG ORAL 2 caps deja ry 4 hours [id number] 19353911636 No Longer Active Landon Casper MD Active CHLORASEPTIC MAX SORE THROAT 15-10 MG MOUTH/THROAT LOZENGE 1 every 2 hours prn BENZOCAINE-MENTHOL 97800801238 No Longer Active Arie Casper MD Active PREDNISONE 20 MG ORAL TABLET 2 tabs daily for 3 days, 1 tab daily for 3 days, 1/2 tab daily for 2 days PREDNISONE 87942726390 No Longer Active Jose Zhong MD Active AZITHROMYCIN 250 MG ORAL TABLET 2 po qd x 1 day, then 1 po q d x 4 days AZITHROMYCIN 22310706151 No Longer Active Jose Mcwilliams MD Active ZOFRAN ODT 4 MG ORAL TABLET DISINTEGRATING 1 po q6hr PRN Nausea ONDANSETRON 99478847220 No Longer Active Rich Rosales MD Active ZOFRAN 4 MG ORAL TABLET 1 tablet every 4 hours ONDANSETRON HCL 55093207074 No Longer Active Rich Rosales MD Activ e MUCINEX 600 MG ORAL TABLET EXTENDED RELEASE 12 HOUR Ta ke 1-2 tablets every 12 hours GUAIFENESIN 44286866155 No Longer Active Rich Rosales MD Active BACTRIM 400-80 MG ORAL TABLET take one po BID SULFAMETHOXAZOLE-TRIMETHOPRIM 54635893884 No Longer Active Abelardo HERNANDEZ Active AZITHROMYCIN 500 MG ORAL TABLET 1 PO q day x 6 days 20 03/02/23 AZITHROMYCIN 79060466812 No Longer Active Tin HERNANDEZ Activ e ZITHROMAX 250 MG ORAL TABLET 2 po today, then 1 po q days 2-5 20 10/03/08 AZITHROMYCIN 92212622456 No Longer Active Arie Casper MD Active ZITHROMAX 250 MG ORAL TABLET 2 po today, then 1 po q days 2-5 20 09/23/25 AZITHROMYCIN 94674249871 No Longer Active Arie Casper MD Active AMOXICILLIN 500 MG ORAL CAPSULE 1 tab by mouth 3 times daily 201 11/24/09 AMOXICILLIN 99638606129 No Longer Active Arie Casper MD Active BACTRIM DS 800-160 MG ORAL TABLET 1 tab by mouth twice daily 201 11/03/14 TRIMETHOPRIM-SULFAMETHOXAZOLE 13961299968 No Longer Active Fozia Casper MD Active AMOXICILLIN 500 MG ORAL TABLET take 1 tab po TID 08/05 AMOXICILLIN 08320066837 No Longer Active Arie Casper MD Acti [...] 4 hours ZOFRAN 4 MG ORAL TABLET 940026 ONDANSETRON HCL Inactive ZOFRAN ODT 4 MG ORAL TABLET DISINTEGRATING 1 po q6hr PRN Nausea ZOFRAN ODT 4 MG ORAL TABLET DISINTEGRATING 080219 ONDAN SETRON Inactive CHLORASEPTIC MAX SORE THROAT 15-10 MG MOUTH/THROAT LOZENGE 1 every 2 hours prn CHLORASEPTIC MAX SORE THROAT 15-10 MG MOUTH/THROAT LOZENGE BENZOCAINE-MENTHOL Inactive COMTREX COLD/COUGH DAY/NITE MS 5-2-10-325 MG ORAL 2 caps deja ry 4 hours COMTREX COLD/COUGH DAY/NITE MS 5-2-10-325 MG ORA L [id number] Inactive [facility] TUSSIN COUGH/COLD CF 5-10-100 MG/5ML ORAL LIQUID 2 teasp oons every 4 hours [facility] TUSSIN COUGH/COLD CF 5-10-100 MG/5ML ORAL LI QUID [id number] Inactive IBUPROFEN 800 MG ORAL TABLET take one po Q 8 hours 201 02/01/16 IBUPROFEN 800 MG ORAL TABLET IBUPROFEN Inactive VITAMINS 0.8 MG ORAL TABLET take 1 tab po qday VITAMINS 0.8 MG ORAL TABLET [id number] E-FA Inactive TESSALON PERLES 100 MG ORAL CAPSULE 1 tablet by mouth 3 times da cory TESSALON PERLES 100 MG ORAL CAPSULE 992176 BENZONATATE Inactive AMOXICILLIN 500 MG ORAL CAPSULE 1 tab by mouth 3 times daily 201 02/21/05 AMOXICILLIN 500 MG ORAL CAPSULE 230459 AMOXICILLIN Inactive GUAIFENESIN-CODEINE 100-10 MG/5ML ORAL SYRUP 2 tsp every 6 hours prn GUAIFENESIN-CODEINE 100-10 MG/5ML ORAL SYRUP 498596 GUAIFENESIN-CODEINE Inactive VICKS DAYQUIL SEVERE COLD/FLU TABLET 1 tab every 6 hours prn 201 02/22/17 VICKS DAYQUIL SEVERE COLD/FLU TABLET PHENYLEPHRI [id number]-UA-APAP TABS Inactive BACTRIM DS 800-160 MG ORAL TABLET 1 twice a day 05/30 BACTRIM DS 800-160 MG ORAL TABLET 853551 SULFAMETHOXAZOLE-TRIMETHOPRIM Inactiv e PROMETHAZINE HCL 25 MG ORAL TABLET 1 four times a day as nee ded for vomiting PROMETHAZINE HCL 25 MG ORAL TABLET 107088 PROMETHAZINE HCL Inactive ZYRTEC ALLERGY 10 MG ORAL CAPSULE 1 po qd ZYRTEC ALLERGY 10 MG ORAL CAPSULE CETIRIZINE HCL Inactive MACROBID 100 MG ORAL CAPSULE 1 cap by mouth twice daily MACROBID 100 MG ORAL CAPSULE 6807245 NITROFURANTOIN MONOHYD MACRO In active LOMOTIL 2.5-0.025 MG ORAL TABLET 1 to 2 four times a day as needed for diarrhea LOMOTIL 2.5-0.025 MG ORAL TABLET 4891970 DIPHENOXYLATE-ATROPINE Inactive CYCLOBENZAPRINE HCL 10 MG ORAL TABLET 1/2 - 1 tablet b y mouth three times daily as needed for muscle spasm/pain CYCLOBEN ZAPRINE HCL 10 MG ORAL TABLET 235083 CYCLOBENZAPRINE HCL Inactive AMOXICILLIN 500 MG ORAL TABLET 2 tabs twice a day for 10 days 20 07/09/11 AMOXICILLIN 500 MG ORAL TABLET 742868 AMOXICILLIN I nactive LOMOTIL 2.5-0.025 MG ORAL TABLET 1 to 2 four times a day as needed for diarrhea LOMOTIL 2.5-0.025 MG ORAL TABLET 1173859 DIPHENOXYLATE-ATROPINE Inactive ZOFRAN 4 MG ORAL TABLET 1 TAB PO Q 6 HRS PRN NAUSEA 20 07/10/15 ZOFRAN 4 MG ORAL TABLET 709358 ONDANSETRON HCL Inactive CITRATE OF MAGNESIA ORAL SOLUTION 1 bottle today for constipatio n CITRATE OF MAGNESIA ORAL SOLUTION 8226427 MAGNESIUM CITR ATE Inactive PROMETHAZINE HCL 12.5 MG ORAL TABLET 1 tablet by mouth every 6 hours as needed for nausea/vomiting PROMETHAZINE HCL 12.5 MG ORA L TABLET 478546 PROMETHAZINE HCL Inactive PREDNISONE 20 MG ORAL TABLET 1 tablet twice daily for 2 days, then 1 tablet once daily for 2 days PREDNISONE 20 MG ORAL TABLET 747444 PREDNISONE Inactive ALPRAZOLAM 0.25 MG ORAL TABLET 1 tablet by mouth every 8 hours as needed for stress ALPRAZOLAM 0.25 MG ORAL TABLET 609827 ALPRA ZOLAM Inactive FLONASE 50 MCG/ACT NASAL SUSPENSION 1 spray each nostr il twice daily for allergies and runny nose until gone FLON ASE 50 MCG/ACT NASAL SUSPENSION 3176185 FLUTICASONE PROPIONATE Inactive PREDNISONE 20 MG ORAL TABLET 1 tablet daily for airway inflammat ion PREDNISONE 20 MG ORAL TABLET 790616 PREDNISONE Arlen ctive NAPROXEN 500 MG ORAL TABLET Take 1 tab BID NAPROXEN 500 MG ORAL TABLET 201997 NAPROXEN Inactive ZOLOFT 50 MG ORAL TABLET 1 tablet by mouth daily 12/08 ZOLOFT 50 MG ORAL TABLET 680912 SERTRALINE HCL Inactive LOMOTIL 2.5-0.025 MG ORAL TABLET 1 tab po four times a day as needed for diarrhea LOMOTIL 2.5-0.025 MG ORAL TABLET 0571679 DIPHENOXYLATE-ATROPINE Inactive CETIRIZINE HCL 10 MG ORAL TABLET 1 po qd PRN Allergies CETIRIZINE HCL 10 MG ORAL TABLET 1501837 CETIRIZINE HCL Inactiv e TUSSIONEX PENNKINETIC ER 10-8 MG/5ML ORAL SUSPENSION E XTENDED RELEASE 5ml po q12hr PRN Cough TUSSIONEX PENNKINETI C ER 10-8 MG/5ML ORAL SUSPENSION EXTENDED RELEASE HYDROCOD POLST-CHLORPHEN POLST I nactive NEXPLANON IMPLANT right arm subcutaneously NEXPLANON IMPLANT ETONOGESTREL IMPL Inactive PROTONIX 40 MG ORAL TABLET DELAYED RELEASE 1 po q a.m. PROTONIX 40 MG ORAL TABLET DELAYED RELEASE 689849 PANTOPRAZOLE SODI UM Inactive CHERATUSSIN AC 100-10 MG/5ML ORAL SYRUP 1 tsp by mouth every 4 hours as needed for cough CHERATUSSIN AC 100-10 MG/5ML ORAL SYRUP 9 86636 GUAIFENESIN-CODEINE Inactive GUAIFENESIN DM 400-20 MG ORAL [...] TID 08/05 AMOXICILLIN 500 MG ORAL TABLET 502057 AMOXICILLIN Inactive AMOXICILLIN 500 MG ORAL CAPSULE 1 tab by mouth 3 times daily 201 11/24/09 AMOXICILLIN 500 MG ORAL CAPSULE 980039 AMOXICILLIN Inactive ZITHROMAX 250 MG ORAL TABLET 2 po today, then 1 po q days 2-5 20 09/23/25 ZITHROMAX 250 MG ORAL TABLET 405370 AZITHROMYCIN [place] ctive ZITHROMAX 250 MG ORAL TABLET 2 po today, then 1 po q days 2-5 20 10/03/08 ZITHROMAX 250 MG ORAL TABLET 864145 AZITHROMYCIN [place] ctive AZITHROMYCIN 500 MG ORAL TABLET 1 PO q day x 6 days 03/02/23 AZITHROMYCIN 500 MG ORAL TABLET 9517821 AZITHROMYCIN Inactive BACTRIM 400-80 MG ORAL TABLET take one po BID BACTRIM 400- 80 MG ORAL TABLET 874489 SULFAMETHOXAZOLE-TRIMETHOPRIM Inactive AZITHROMYCIN 250 MG ORAL TABLET 2 po qd x 1 day, then 1 po q d x 4 days AZITHROMYCIN 250 MG ORAL TABLET 189052 AZITHROMY ALLISON Inactive PREDNISONE 20 MG ORAL TABLET 2 tabs daily for 3 days, 1 tab daily for 3 days, 1/2 tab daily for 2 days PREDNISONE 20 MG ORAL T ABLET 914963 PREDNISONE Inactive ZITHROMAX 250 MG ORAL TABLET 2 po today, then 1 po q days 2-5 20 06/08/16 ZITHROMAX 250 MG ORAL TABLET 610886 AZITHROMYCIN [place] ctive FLAGYL 500 MG ORAL TABLET 1 tablet by mouth two times daily 2014 FLAGYL 500 MG ORAL TABLET 823903 METRONIDAZOLE Inacti ve AUGMENTIN 875-125 MG ORAL TABLET 1 tab by mouth twice daily with food AUGMENTIN 875-125 MG ORAL TABLET 893046 AMOXICIL ELSA-POT CLAVULANATE Inactive NAPROXEN 500 MG ORAL TABLET one tab PO BID NAPROXEN 500 MG ORAL TABLET 751555 NAPROXEN Inactive PREDNISONE 20 MG ORAL TABLET 2 tabs daily for 3 days, 1 tab daily for 3 days, 1/2 tab daily for 2 days PREDNISONE 20 MG ORAL T ABLET 416458 PREDNISONE Inactive AZITHROMYCIN 250 MG ORAL TABLET 2 po qd x 1 day, then 1 po q d x 4 days AZITHROMYCIN 250 MG ORAL TABLET 931559 AZITHROMY ALLISON Inactive PREDNISONE 20 MG ORAL TABLET 2 tabs daily for 3 days, 1 tab daily for 3 days, 1/2 tab daily for 2 days PREDNISONE 20 MG ORAL T ABLET 399788 PREDNISONE Inactive ZITHROMAX Z-EMIL 250 MG ORAL TABLET 2 today, then 1 daily for 4 d ays ZITHROMAX Z-EMIL 250 MG ORAL TABLET 021200 AZITHROMYCIN Inactive CEFDINIR 300 MG ORAL CAPSULE 1 po BID x 10 days 12/18 CEFDINIR 300 MG ORAL CAPSULE 647132 CEFDINIR Inactive CEFDINIR 300 MG ORAL CAPSULE 1 po BID x 10 days CEFDINIR 300 MG ORAL CAPSULE 20030127 CEFDINIR Inactive PREDNISONE 20 MG ORAL TABLET 2 tabs daily for 3 days, 1 tab daily for 3 days, 1/2 tab daily for 2 days PREDNISONE 20 MG ORAL T ABLET 279882 PREDNISONE Inactive BACTRIM DS 800-160 MG ORAL TABLET 1 tab by mouth twice daily 201 05/02/30 BACTRIM DS 800-160 MG ORAL TABLET 111500 TRIMETHOPRIM-SULFAMETHOXAZOLE Inactive ZITHROMAX Z-EMIL 250 MG ORAL TABLET 2 today, then 1 daily for 4 d ays ZITHROMAX Z-EMIL 250 MG ORAL TABLET 809755 AZITHROMYCIN Inactive TAMIFLU 75 MG ORAL CAPSULE 1 po BID x 5 days 0 TAMIFLU 75 MG ORAL CAPSULE 468448 OSELTAMIVIR PHOSPHATE Inactive CEFDINIR 300 MG ORAL CAPSULE 1 po BID x 10 days 2018/01/03 CEFDINIR 300 MG ORAL CAPSULE 161577 CEFDINIR Inactive ZITHROMAX Z-EMIL 250 MG TABS Take two tablets today and then 1 tablet daily for 4 days ZITHROMAX Z-EMIL 250 MG TABS 199815 AZITHROM YCIN Inactive Advance Directives Directive Description Start Date [...] Value Unit Range Description blood pressure, diastolic 90 mm[Hg] BP kennedy [...] Name Value Unit Range Description Lab Report: CBC, Quant BHCG - Hematology [...] Negative Encounters Code Encounter Date Provider Facility CPT-39555 [id number] Vst-Est Level III 17:21:41 CDT Me lobito Russ [facility]-66148 [id number] Vst-Est Level IV 13:30:22 C NIC Casper MD [facility]-73099 Level 4 Est. Patient 13:05:26 CDT Myrna maldonado MD [facility]-67502 [id number] Vst-Est Level IV 20:50:21 C NIC Casper MD [facility] CPT-47008 Level 3 Est. Patient 11:49:34 DUMPLING 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 Jessica boyd [facility]-37970 Level 3 Est. Patient 14:55:50 DUMPLING 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 Jose Zhong MD [facility]-64136 Level 3 Est. Patient 10:21:41 DUMPLING 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 Arie mcqueen MD [facility]-65436 Level 3 Est. Patient 11:35:15 DUMPLING 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 Arie mcqueen MD [facility]-33724 Level 3 Est. Patient 15:40:28 CDT Brii escalante [facility]-95937 Level 3 Est. Patient 16:40:36 CDT Arie mcqueen MD [facility] CPT-78906 Level 4 Est. Patient 15:29:22 DUMPLING 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 Arie mcqueen MD [facility] CPT-24042 Level 3 Est. Patient 15:18:16 DUMPLING 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 Jono black [facility] CPT-05330 Level 4 Est. Patient 12:08:40 DUMPLING 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 Brii Are [facility] CPT-83480 Level 3 Est. Patient 09:24:42 CDT Brii Are [facility] CPT-02037 Level 3 Est. Patient 09:12:56 CDT Arie mcqueen MD [facility] CPT-21092 Level 3 Est. Patient 16:40:54 CDT Jose Zhong MD [facility]-20404 Level 2 Est. Patient 13:01:13 CDT Brii Are [facility] CPT-61521 Level 3 Est. Patient 11:55:30 DUMPLING 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 Jono black [facility] CPT-56877 Level 3 Est. Patient 09:52:36 DUMPLING 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 Brii Are [facility] CPT-36221 Level 3 Est. Patient 16:25:33 DUMPLING 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 Rich Rosales MD [facility] CPT-06961 Level 3 Est. Patient 20:33:55 CDT Arie mcqueen MD [facility] CPT-17170 Level 3 Est. Patient 14:18:20 CDT Rich Rosales MD [facility] CPT-71186 Level 4 Est. Patient 09:34:31 CDT Arie mcqueen MD [facility]-06867 Level 3 Est. Patient 09:08:55 DUMPLING 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 Liliana vincent MD PhD [facility] CPT-01494 Level 3 Est. Patient 16:44:07 DUMPLING 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 Arie mcqueen MD [facility] CPT-52741 Level 3 Est. Patient 10:44:27 CDT Arie mcqueen MD [facility] CPT-72802 Level 3 Est. Patient 08:55:41 CDT Jose Zhong MD [facility] CPT-68798 Level 3 Est. Patient 18:37:31 CDT Liliana vincent MD PhD [facility] CPT-42304 Level 3 Est. Patient 14:28:23 CDT Abelardo marroquin PA [facility] CPT-35931 Level 3 Est. Patient 15:18:13 DUMPLING 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 Arie mcqueen MD [facility] CPT-05988 Level 3 Est. Patient 10:11:29 DUMPLING 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 Arie mcqueen MD [facility] CPT-21167 Level 3 Est. Patient 10:55:57 DUMPLING 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 Jono black DO [facility] CPT-75850 Level 3 Est. Patient 17:29:05 CDT Arie mcqueen MD [facility] Procedures Code Procedure Name Date Entry Date Standard Desc ription CPT-95116 Ear Wash with irrigation 17:21:41 CDT 07/04 CPT-65338 Nexplanon Removal 15:40:28 CDT CPT-80448 Sono transvag pelvis non OB uterus ovari es cervix - XRAY USE ONLY 08:58:14 DUMPLING 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 CPT-01258 UA w micro - LAB USE ONLY 16:04:56 DUMPLING 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 2015 CPT-10004 Wet Prep/GEN - LAB USE ONLY 16:04:56 DUMPLING 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 20 08/10/29 CPT-46761 First Vx - Ix admin via ID I M or jet injects without counseling by physician 16:57:10 CDT CPT-95722 Fluzone Preservative Free Intramuscular Suspension 16:57:10 CDT CPT-J0696 Rocephin 1000 mg (Ceftriaxone) 11:49:23 CDT CPT-J1040 Depo Medrol 80 mg (Methyl Prednisolone A cetate) 11:49:23 CDT CPT-J1100 Decadron 8mg (Dexamethasone) 11:49:23 CDT 2 CPT-91162 Abx/Therapy Injection 11:49:23 CDT CPT-62455 Abx/Therapy Injection 11:49:23 CDT CPT-73965 Abd compl w upright 09:07:26 DUMPLING 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 CPT-85467 Ear Wash 16:12:47 DUMPLING 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 CPT-OV Office Visit 11:12:01 CDT CPT-OV Office Visit 15:30:23 CDT CPT-44708 Sono pelvis non OB uterus ovaries cervix 15:50:44 CDT CPT-82306 Hand comp min 3V 16:42:32 CDT CPT-04119 Abd compl w upright 12:17:01 CDT CPT-02017 Nexplanon Placement 15:07:39 DUMPLING 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 CPT-51823 Removal of IUD 15:07:39 DUMPLING 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 CPT-30814 TB Tubersol 12:09:32 CDT CPT-99597 TB Tubersol 13:55:43 CDT
--- OUTSIDE RECORDS SUMMARY | 2020-03-03 07:10 | XMS REPORT | Clinical Summary ---
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 Unspecified sinusitis (chronic) Other mixed anxiety 300.00 [...] Russ APRN Hypertrophy of tonsils alone FH BREAST CANCER ICD-V16.3 Inactive Jose Marcelo FH COLON CANCER ICD-V16.0 Inactive Jose Zhong MD FH DIABETES ICD-V18.0 Inactive Jose Zhong MD 201 01/29/08 ACUTE FRONTAL SINUSITIS ICD-461.1 Inactive Meghan Estrada MD PhD CYSTITIS ICD-595.9 Inactive Liliana Estrada MD Ph D SINUSITIS ICD-473.9 Inactive Liliana Estrada MD Ph D IUD removal ICD-V25.42 Inactive Liliana Estrada MD PhD Diarrhea ICD-787.91 Inactive Jose Zhong M D Thumb pain, right ICD-729.5 Inactive Jose pelayo MD Sinusitis, acute ICD-461.9 Inactive Liliana cheema MD PhD Fever ICD-780.60 Inactive Liliana Estrada MD PhD 20 08/12/16 Symptom, cough ICD-786.2 Inactive Liliana Estrada MD PhD Vaginal discharge ICD-623.5 Inactive Liliana lares MD PhD Urinary frequency ICD-788.41 Inactive Jose Zhong MD Vaginal bleeding ICD-623.8 Inactive Jose Mcwilliams MD Medication List Medication Instructions Start Date Stop Date Generic Name NDC Status Provider Patient Instruction PROTONIX 40 MG ORAL TABLET DELAYED RELEASE 1 pill by m outh daily, for acid reflux PANTOPRAZOLE SODIUM 14592531118 Active Roseann Crawford Active AMOXICILLIN 875 MG ORAL TABLET 1 tab by mouth twice daily 1 AMOXICILLIN 69322580454 Active Brii Russ APRN Active ALPRAZOLAM 0.25 MG ORAL TABLET 1 tablet by mouth twice a day as needed for stress/anxiety ALPRAZOLAM 82464169509 Active Arie whittington MD Active ESCITALOPRAM OXALATE 10 MG ORAL TABLET take 1 tab po qhs for mod 20 10/04/18 ESCITALOPRAM OXALATE 81565617245 Active Arie Casper MD Active TUSSIONEX PENNKINETIC ER 10-8 MG/5ML ORAL SUSPENSION E XTENDED RELEASE 5ml po q12hr PRN Cough HYDROCOD POLST-CHLORPHEN POLST 5 0091370586 No Longer Active Myrna Roberto MD Active ZITHROMAX Z-EMIL 250 MG TABS Take two tablets today and then 1 tablet daily for 4 days AZITHROMYCIN 54993854027 No Longer Active Flaco Rosales MD Active GUAIFENESIN DM 400-20 MG ORAL TABLET 1 pill by mouth t wice daily, if needed for cough DEXTROMETHORPHAN-GUAIFENESIN 96967095052 No Longer Active Rich Rosales MD Active CEFDINIR 300 MG ORAL CAPSULE 1 po BID x 10 days CEFDINIR 86422451125 No Longer Active Jessica Heaton APRN Active CHERATUSSIN AC 100-10 MG/5ML ORAL SYRUP 1 tsp by mouth every 4 hours as needed for cough GUAIFENESIN-CODEINE 43147256884 No Longe r Active Jessica Heaton APRN Active TAMIFLU 75 MG ORAL CAPSULE 1 po BID x 5 days 0 OSELTAMIVIR PHOSPHATE 44983871768 No Longer Active Jose Zhong MD Activ e ZITHROMAX Z-EMIL 250 MG ORAL TABLET 2 today, then 1 daily for 4 d ays AZITHROMYCIN 35439871230 No Longer Active Arie Casper MD Active PROTONIX 40 MG ORAL TABLET DELAYED RELEASE 1 po q a.m. PANTOPRAZOLE SODIUM 27066277365 No Longer Active Arie Casper MD Active BACTRIM DS 800-160 MG ORAL TABLET 1 tab by mouth twice daily 201 05/02/30 TRIMETHOPRIM-SULFAMETHOXAZOLE 24267348887 No Longer Active R [facility] Ty Active NEXPLANON IMPLANT right arm subcutaneously ETONOGESTREL IMPL 45860978774 No Longer Active Brii Areboris ANALOG DEVICE DESIGNER Active TUSSIONEX PENNKINETIC ER 10-8 MG/5ML ORAL SUSPENSION E XTENDED RELEASE 5ml po q12hr PRN Cough HYDROCOD POLST-CHLORPHEN POLST 5 9955999759 No Longer Active Brii Areboris ANALOG DEVICE DESIGNER Active CETIRIZINE HCL 10 MG ORAL TABLET 1 po qd PRN Allergies CETIRIZINE HCL 62135256610 No Longer Active Brii Russ ANALOG DEVICE DESIGNER Activ e PREDNISONE 20 MG ORAL TABLET 2 tabs daily for 3 days, 1 tab daily for 3 days, 1/2 tab daily for 2 days PREDNISONE 45180735422 No Longer Active Arie Casper MD Active LOMOTIL 2.5-0.025 MG ORAL TABLET 1 tab po four times a day as needed for diarrhea DIPHENOXYLATE-ATROPINE 24296158146 No Lo nger Active Arie Casper MD Active ZOLOFT 50 MG ORAL TABLET 1 tablet by mouth daily 12/08 SERTRALINE HCL 56024493310 No Longer Active Arie Casper MD Ac tive NAPROXEN 500 MG ORAL TABLET Take 1 tab BID NAPR OXEN 56350034167 No Longer Active Arie Casper MD Active CEFDINIR 300 MG ORAL CAPSULE 1 po BID x 10 days CEFDINIR 94997773695 No Longer Active Brii Areboris CABRERA Active PREDNISONE 20 MG ORAL TABLET 1 tablet daily for airway inflammat ion PREDNISONE 41603129111 No Longer Active Brii Russ APRN A ctive CEFDINIR 300 MG ORAL CAPSULE 1 po BID x 10 days CEFDINIR 58304231466 No Longer Active Jono Gagnon DO Active FLONASE 50 MCG/ACT NASAL SUSPENSION 1 spray each nostr il twice daily for allergies and runny nose until gone FLUT ICASONE PROPIONATE 85203626022 No Longer Active Jono Gagnon DO Active ALPRAZOLAM 0.25 MG ORAL TABLET 1 tablet by mouth every 8 hours as needed for stress ALPRAZOLAM 86117562610 No Longer Active Jono Gagnon DO Active ZITHROMAX Z-EMIL 250 MG ORAL TABLET 2 today, then 1 daily for 4 d ays AZITHROMYCIN 50224213044 No Longer Active Arie Casper MD Active PREDNISONE 20 MG ORAL TABLET 2 tabs daily for 3 days, 1 tab daily for 3 days, 1/2 tab daily for 2 days PREDNISONE 44813684930 No Longer Active Brii Russ APRN Active PREDNISONE 20 MG ORAL TABLET 1 tablet twice daily for 2 days, then 1 tablet once daily for 2 days PREDNISONE 83177367100 No Longer Active Brii Russ APRN Active PROMETHAZINE HCL 12.5 MG ORAL TABLET 1 tablet by mouth every 6 hours as needed for nausea/vomiting PROMETHAZINE HCL 75356368996 No L onger Active Jono Gagnon DO Active CITRATE OF MAGNESIA ORAL SOLUTION 1 bottle today for constipatio n MAGNESIUM CITRATE 55753771227 No Longer Active Jono Gagnon DO Active ZOFRAN 4 MG ORAL TABLET 1 TAB PO Q 6 HRS PRN NAUSEA 20 07/10/15 ONDANSETRON HCL 48501734615 No Longer Active Brii Russ APRN Acti ve LOMOTIL 2.5-0.025 MG ORAL TABLET 1 to 2 four times a day as needed for diarrhea DIPHENOXYLATE-ATROPINE 78556394679 No Longer Active January Russ APRN Active AMOXICILLIN 500 MG ORAL TABLET 2 tabs twice a day for 10 days 20 07/09/11 AMOXICILLIN 71165335910 No Longer Active Brii Russ APRN Active CYCLOBENZAPRINE HCL 10 MG ORAL TABLET 1/2 - 1 tablet b y mouth three times daily as needed for muscle spasm/pain CYCLOBENZAPRINE HCL 36050184385 No Longer Active Arie Casper MD Active LOMOTIL 2.5-0.025 MG ORAL TABLET 1 to 2 four times a day as needed for diarrhea DIPHENOXYLATE-ATROPINE 25799353587 No Longer Active Fozia Casper MD Active MACROBID 100 MG ORAL CAPSULE 1 cap by mouth twice daily NITROFURANTOIN MONOHYD MACRO 08094984750 No Longer Active Arie Casepr MD Active ZYRTEC ALLERGY 10 MG ORAL CAPSULE 1 po qd CE TIRIZINE HCL 97973378398 No Longer Active Arie Casper MD Active AZITHROMYCIN 250 MG ORAL TABLET 2 po qd x 1 day, then 1 po q d x 4 days AZITHROMYCIN 55341644437 No Longer Active Jillina Marcell salgado ANALOG DEVICE DESIGNER Active PREDNISONE 20 MG ORAL TABLET 2 tabs daily for 3 days, 1 tab daily for 3 days, 1/2 tab daily for 2 days PREDNISONE 42043617608 No Longer Active Jillarlen Heaton ANALOG DEVICE DESIGNER Active PROMETHAZINE HCL 25 MG ORAL TABLET 1 four times a day as nee ded for vomiting PROMETHAZINE HCL 11146213288 No Longer Active Myrna Roberto MD Active BACTRIM DS 800-160 MG ORAL TABLET 1 twice a day 05/30 SULFAMETHOXAZOLE-TRIMETHOPRIM 28697795421 No Longer Active Myrna Roberto MD Active VICKS DAYQUIL SEVERE COLD/FLU TABLET 1 tab every 6 hours prn 201 02/22/17 [id number] TABS 38543565862 No Longer Active Chris Roberto MD Active GUAIFENESIN-CODEINE 100-10 MG/5ML ORAL SYRUP 2 tsp every 6 hours prn GUAIFENESIN-CODEINE 40420097473 No Longer Active Myrna Roberto MD Active NAPROXEN 500 MG ORAL TABLET one tab PO BID NAPR OXEN 43346543479 No Longer Active Myrna Roberto MD Active AUGMENTIN 875-125 MG ORAL TABLET 1 tab by mouth twice daily with food AMOXICILLIN-POT CLAVULANATE 95544954333 No Longer Act zaid Liliana Estrada MD PhD Active AMOXICILLIN 500 MG ORAL CAPSULE 1 tab by mouth 3 times daily 201 02/21/05 AMOXICILLIN 58740712056 No Longer Active Liliana Estrada MD PhD Active TESSALON PERLES 100 MG ORAL CAPSULE 1 tablet by mouth 3 times da cory BENZONATATE 91925883380 No Longer Active Liliana Estrada MD PhD Active FLAGYL 500 MG ORAL TABLET 1 tablet by mouth two times daily 2014 METRONIDAZOLE 26574703873 No Longer Active Nilam Raida Ac tive ZITHROMAX 250 MG ORAL TABLET 2 po today, then 1 po q days 2-5 20 06/08/16 AZITHROMYCIN 24192235744 No Longer Active Arie Casper MD Active VITAMINS 0.8 MG ORAL TABLET take 1 tab po qday [id number] 46812425789 No Longer Active Arie Casper MD Active IBUPROFEN 800 MG ORAL TABLET take one po Q 8 hours 201 02/01/16 IBUPROFEN 10949866244 No Longer Active Arie Casper MD Acti ve [facility] TUSSIN COUGH/COLD CF 5-10-100 MG/5ML ORAL LIQUID 2 teasp oons every 4 hours [id number] 07944228681 No Longer Active Blaine Casper MD Active COMTREX COLD/COUGH DAY/NITE MS 5-2-10-325 MG ORAL 2 caps deja ry 4 hours [id number] 76789837989 No Longer Active Landon Casper MD Active CHLORASEPTIC MAX SORE THROAT 15-10 MG MOUTH/THROAT LOZENGE 1 every 2 hours prn BENZOCAINE-MENTHOL 41405729560 No Longer Active Arie Casper MD Active PREDNISONE 20 MG ORAL TABLET 2 tabs daily for 3 days, 1 tab daily for 3 days, 1/2 tab daily for 2 days PREDNISONE 84932218787 No Longer Active Jose Zhong MD Active AZITHROMYCIN 250 MG ORAL TABLET 2 po qd x 1 day, then 1 po q d x 4 days AZITHROMYCIN 54065288201 No Longer Active Jose Mcwilliams MD Active ZOFRAN ODT 4 MG ORAL TABLET DISINTEGRATING 1 po q6hr PRN Nausea ONDANSETRON 27852145937 No Longer Active Rich Rosales MD Active ZOFRAN 4 MG ORAL TABLET 1 tablet every 4 hours ONDANSETRON HCL 95792484155 No Longer Active Rich Rosales MD Activ e MUCINEX 600 MG ORAL TABLET EXTENDED RELEASE 12 HOUR Ta ke 1-2 tablets every 12 hours GUAIFENESIN 25037427835 No Longer Active Rich Rosales MD Active BACTRIM 400-80 MG ORAL TABLET take one po BID SULFAMETHOXAZOLE-TRIMETHOPRIM 84267094772 No Longer Active Abelardo HERNANDEZ Active AZITHROMYCIN 500 MG ORAL TABLET 1 PO q day x 6 days 20 03/02/23 AZITHROMYCIN 43986311920 No Longer Active Tin HERNANDEZ Activ e ZITHROMAX 250 MG ORAL TABLET 2 po today, then 1 po q days 2-5 20 10/03/08 AZITHROMYCIN 16305916518 No Longer Active Arie Casper MD Active ZITHROMAX 250 MG ORAL TABLET 2 po today, then 1 po q days 2-5 20 09/23/25 AZITHROMYCIN 28693793008 No Longer Active Arie Casper MD Active AMOXICILLIN 500 MG ORAL CAPSULE 1 tab by mouth 3 times daily 201 11/24/09 AMOXICILLIN 20129931854 No Longer Active Arie Casper MD Active BACTRIM DS 800-160 MG ORAL TABLET 1 tab by mouth twice daily 201 11/03/14 TRIMETHOPRIM-SULFAMETHOXAZOLE 02043480160 No Longer Active Fozia Casper MD Active AMOXICILLIN 500 MG ORAL TABLET take 1 tab po TID 08/05 AMOXICILLIN 73862615580 No Longer Active Arie Casper MD Acti [...] 4 hours ZOFRAN 4 MG ORAL TABLET 635242 ONDANSETRON HCL Inactive ZOFRAN ODT 4 MG ORAL TABLET DISINTEGRATING 1 po q6hr PRN Nausea ZOFRAN ODT 4 MG ORAL TABLET DISINTEGRATING 920794 ONDAN SETRON Inactive CHLORASEPTIC MAX SORE THROAT 15-10 MG MOUTH/THROAT LOZENGE 1 every 2 hours prn CHLORASEPTIC MAX SORE THROAT 15-10 MG MOUTH/THROAT LOZENGE BENZOCAINE-MENTHOL Inactive COMTREX COLD/COUGH DAY/NITE MS 5-2-10-325 MG ORAL 2 caps deja ry 4 hours COMTREX COLD/COUGH DAY/NITE MS 5-2-10-325 MG ORA L [id number] Inactive [facility] TUSSIN COUGH/COLD CF 5-10-100 MG/5ML ORAL LIQUID 2 teasp oons every 4 hours [facility] TUSSIN COUGH/COLD CF 5-10-100 MG/5ML ORAL LI QUID [id number] Inactive IBUPROFEN 800 MG ORAL TABLET take one po Q 8 hours 201 02/01/16 IBUPROFEN 800 MG ORAL TABLET IBUPROFEN Inactive VITAMINS 0.8 MG ORAL TABLET take 1 tab po qday VITAMINS 0.8 MG ORAL TABLET [id number] E-FA Inactive TESSALON PERLES 100 MG ORAL CAPSULE 1 tablet by mouth 3 times da cory TESSALON PERLES 100 MG ORAL CAPSULE 787999 BENZONATATE Inactive AMOXICILLIN 500 MG ORAL CAPSULE 1 tab by mouth 3 times daily 201 02/21/05 AMOXICILLIN 500 MG ORAL CAPSULE 684245 AMOXICILLIN Inactive GUAIFENESIN-CODEINE 100-10 MG/5ML ORAL SYRUP 2 tsp every 6 hours prn GUAIFENESIN-CODEINE 100-10 MG/5ML ORAL SYRUP 109227 GUAIFENESIN-CODEINE Inactive VICKS DAYQUIL SEVERE COLD/FLU TABLET 1 tab every 6 hours prn 201 02/22/17 VICKS DAYQUIL SEVERE COLD/FLU TABLET PHENYLEPHRI IY-FE-UE-APAP TABS Inactive BACTRIM DS 800-160 MG ORAL TABLET 1 twice a day 05/30 BACTRIM DS 800-160 MG ORAL TABLET 124837 SULFAMETHOXAZOLE-TRIMETHOPRIM Inactiv e PROMETHAZINE HCL 25 MG ORAL TABLET 1 four times a day as nee ded for vomiting PROMETHAZINE HCL 25 MG ORAL TABLET 741910 PROMETHAZINE HCL Inactive ZYRTEC ALLERGY 10 MG ORAL CAPSULE 1 po qd ZYRTEC ALLERGY 10 MG ORAL CAPSULE CETIRIZINE HCL Inactive MACROBID 100 MG ORAL CAPSULE 1 cap by mouth twice daily MACROBID 100 MG ORAL CAPSULE 8336184 NITROFURANTOIN MONOHYD MACRO In active LOMOTIL 2.5-0.025 MG ORAL TABLET 1 to 2 four times a day as needed for diarrhea LOMOTIL 2.5-0.025 MG ORAL TABLET 8199834 DIPHENOXYLATE-ATROPINE Inactive CYCLOBENZAPRINE HCL 10 MG ORAL TABLET 1/2 - 1 tablet b y mouth three times daily as needed for muscle spasm/pain CYCLOBEN ZAPRINE HCL 10 MG ORAL TABLET 544465 CYCLOBENZAPRINE HCL Inactive AMOXICILLIN 500 MG ORAL TABLET 2 tabs twice a day for 10 days 20 07/09/11 AMOXICILLIN 500 MG ORAL TABLET 081252 AMOXICILLIN I nactive LOMOTIL 2.5-0.025 MG ORAL TABLET 1 to 2 four times a day as needed for diarrhea LOMOTIL 2.5-0.025 MG ORAL TABLET 8846924 DIPHENOXYLATE-ATROPINE Inactive ZOFRAN 4 MG ORAL TABLET 1 TAB PO Q 6 HRS PRN NAUSEA 20 07/10/15 ZOFRAN 4 MG ORAL TABLET 534919 ONDANSETRON HCL Inactive CITRATE OF MAGNESIA ORAL SOLUTION 1 bottle today for constipatio n CITRATE OF MAGNESIA ORAL SOLUTION 0937075 MAGNESIUM CITR ATE Inactive PROMETHAZINE HCL 12.5 MG ORAL TABLET 1 tablet by mouth every 6 hours as needed for nausea/vomiting PROMETHAZINE HCL 12.5 MG ORA L TABLET 992568 PROMETHAZINE HCL Inactive PREDNISONE 20 MG ORAL TABLET 1 tablet twice daily for 2 days, then 1 tablet once daily for 2 days PREDNISONE 20 MG ORAL TABLET 498322 PREDNISONE Inactive ALPRAZOLAM 0.25 MG ORAL TABLET 1 tablet by mouth every 8 hours as needed for stress ALPRAZOLAM 0.25 MG ORAL TABLET 979564 ALPRA ZOLAM Inactive FLONASE 50 MCG/ACT NASAL SUSPENSION 1 spray each nostr il twice daily for allergies and runny nose until gone FLON ASE 50 MCG/ACT NASAL SUSPENSION 7149056 FLUTICASONE PROPIONATE Inactive PREDNISONE 20 MG ORAL TABLET 1 tablet daily for airway inflammat ion PREDNISONE 20 MG ORAL TABLET 615098 PREDNISONE [place] ctive NAPROXEN 500 MG ORAL TABLET Take 1 tab BID NAPROXEN 500 MG ORAL TABLET 862440 NAPROXEN Inactive ZOLOFT 50 MG ORAL TABLET 1 tablet by mouth daily 12/08 ZOLOFT 50 MG ORAL TABLET 071232 SERTRALINE HCL Inactive LOMOTIL 2.5-0.025 MG ORAL TABLET 1 tab po four times a day as needed for diarrhea LOMOTIL 2.5-0.025 MG ORAL TABLET 3524087 DIPHENOXYLATE-ATROPINE Inactive CETIRIZINE HCL 10 MG ORAL TABLET 1 po qd PRN Allergies CETIRIZINE HCL 10 MG ORAL TABLET 0426894 CETIRIZINE HCL Inactiv e TUSSIONEX PENNKINETIC ER 10-8 MG/5ML ORAL SUSPENSION E XTENDED RELEASE 5ml po q12hr PRN Cough TUSSIONEX PENNKINETI C ER 10-8 MG/5ML ORAL SUSPENSION EXTENDED RELEASE HYDROCOD POLST-CHLORPHEN POLST I nactive NEXPLANON IMPLANT right arm subcutaneously NEXPLANON IMPLANT ETONOGESTREL IMPL Inactive PROTONIX 40 MG ORAL TABLET DELAYED RELEASE 1 po q a.m. PROTONIX 40 MG ORAL TABLET DELAYED RELEASE 059493 PANTOPRAZOLE SODI UM Inactive CHERATUSSIN AC 100-10 MG/5ML ORAL SYRUP 1 tsp by mouth every 4 hours as needed for cough CHERATUSSIN AC 100-10 MG/5ML ORAL SYRUP 9 21959 GUAIFENESIN-CODEINE Inactive GUAIFENESIN DM 400-20 MG ORAL [...] TID 08/05 AMOXICILLIN 500 MG ORAL TABLET 152971 AMOXICILLIN Inactive AMOXICILLIN 500 MG ORAL CAPSULE 1 tab by mouth 3 times daily 201 11/24/09 AMOXICILLIN 500 MG ORAL CAPSULE 199391 AMOXICILLIN Inactive ZITHROMAX 250 MG ORAL TABLET 2 po today, then 1 po q days 2-5 20 09/23/25 ZITHROMAX 250 MG ORAL TABLET 112437 AZITHROMYCIN [place] ctive ZITHROMAX 250 MG ORAL TABLET 2 po today, then 1 po q days 2-5 20 10/03/08 ZITHROMAX 250 MG ORAL TABLET 992633 AZITHROMYCIN [place] ctive AZITHROMYCIN 500 MG ORAL TABLET 1 PO q day x 6 days 03/02/23 AZITHROMYCIN 500 MG ORAL TABLET 3514145 AZITHROMYCIN Inactive BACTRIM 400-80 MG ORAL TABLET take one po BID BACTRIM 400- 80 MG ORAL TABLET 951251 SULFAMETHOXAZOLE-TRIMETHOPRIM Inactive AZITHROMYCIN 250 MG ORAL TABLET 2 po qd x 1 day, then 1 po q d x 4 days AZITHROMYCIN 250 MG ORAL TABLET 187044 AZITHROMY ALLISON Inactive PREDNISONE 20 MG ORAL TABLET 2 tabs daily for 3 days, 1 tab daily for 3 days, 1/2 tab daily for 2 days PREDNISONE 20 MG ORAL T ABLET 830922 PREDNISONE Inactive ZITHROMAX 250 MG ORAL TABLET 2 po today, then 1 po q days 2-5 20 06/08/16 ZITHROMAX 250 MG ORAL TABLET 611163 AZITHROMYCIN [place] ctive FLAGYL 500 MG ORAL TABLET 1 tablet by mouth two times daily 2014 FLAGYL 500 MG ORAL TABLET 730263 METRONIDAZOLE Inacti ve AUGMENTIN 875-125 MG ORAL TABLET 1 tab by mouth twice daily with food AUGMENTIN 875-125 MG ORAL TABLET 732280 AMOXICIL ELSA-POT CLAVULANATE Inactive NAPROXEN 500 MG ORAL TABLET one tab PO BID NAPROXEN 500 MG ORAL TABLET 655813 NAPROXEN Inactive PREDNISONE 20 MG ORAL TABLET 2 tabs daily for 3 days, 1 tab daily for 3 days, 1/2 tab daily for 2 days PREDNISONE 20 MG ORAL T ABLET 685272 PREDNISONE Inactive AZITHROMYCIN 250 MG ORAL TABLET 2 po qd x 1 day, then 1 po q d x 4 days AZITHROMYCIN 250 MG ORAL TABLET 916358 AZITHROMY ALLISON Inactive PREDNISONE 20 MG ORAL TABLET 2 tabs daily for 3 days, 1 tab daily for 3 days, 1/2 tab daily for 2 days PREDNISONE 20 MG ORAL T ABLET 533445 PREDNISONE Inactive ZITHROMAX Z-EMIL 250 MG ORAL TABLET 2 today, then 1 daily for 4 d ays ZITHROMAX Z-EMIL 250 MG ORAL TABLET 069131 AZITHROMYCIN Inactive CEFDINIR 300 MG ORAL CAPSULE 1 po BID x 10 days 12/18 CEFDINIR 300 MG ORAL CAPSULE 524607 CEFDINIR Inactive CEFDINIR 300 MG ORAL CAPSULE 1 po BID x 10 days CEFDINIR 300 MG ORAL CAPSULE 20030127 CEFDINIR Inactive PREDNISONE 20 MG ORAL TABLET 2 tabs daily for 3 days, 1 tab daily for 3 days, 1/2 tab daily for 2 days PREDNISONE 20 MG ORAL T ABLET 521643 PREDNISONE Inactive BACTRIM DS 800-160 MG ORAL TABLET 1 tab by mouth twice daily 201 05/02/30 BACTRIM DS 800-160 MG ORAL TABLET 414943 TRIMETHOPRIM-SULFAMETHOXAZOLE Inactive ZITHROMAX Z-EMIL 250 MG ORAL TABLET 2 today, then 1 daily for 4 d ays ZITHROMAX Z-EMIL 250 MG ORAL TABLET 725507 AZITHROMYCIN Inactive TAMIFLU 75 MG ORAL CAPSULE 1 po BID x 5 days 0 TAMIFLU 75 MG ORAL CAPSULE 762333 OSELTAMIVIR PHOSPHATE Inactive CEFDINIR 300 MG ORAL CAPSULE 1 po BID x 10 days 2018/01/03 CEFDINIR 300 MG ORAL CAPSULE 869957 CEFDINIR Inactive ZITHROMAX Z-EMIL 250 MG TABS Take two tablets today and then 1 tablet daily for 4 days ZITHROMAX Z-EMIL 250 MG TABS 867334 AZITHROM YCIN Inactive Advance Directives Directive Description [...] Negative Encounters Code Encounter Date Provider Facility CPT-83739 [id number] Vst-Est Level III 17:21:41 CDT Me lobito Russ [facility]-90788 [id number] Vst-Est Level IV 13:30:22 C NIC Casper MD [facility]-56790 Level 4 Est. Patient 13:05:26 CDT Myrna maldonado MD [facility]-08676 [id number] Vst-Est Level IV 20:50:21 C NIC Casper MD [facility] CPT-95451 Level 3 Est. Patient 11:49:34 SNOW REMOVING SUPERVISOR Jessica boyd [facility]-11455 Level 3 Est. Patient 14:55:50 SNOW REMOVING SUPERVISOR Jose Zhong MD [facility]-15245 Level 3 Est. Patient 10:21:41 SNOW REMOVING SUPERVISOR Arie mcqueen MD [facility]-99035 Level 3 Est. Patient 11:35:15 SNOW REMOVING SUPERVISOR Arie mcqueen MD [facility]-86122 Level 3 Est. Patient 15:40:28 CDT Brii escalante [facility]-20125 Level 3 Est. Patient 16:40:36 CDT Arie mcqueen MD [facility] CPT-96761 Level 4 Est. Patient 15:29:22 SNOW REMOVING SUPERVISOR Arie mcqueen MD [facility] CPT-16629 Level 3 Est. Patient 15:18:16 SNOW REMOVING SUPERVISOR Jono black [facility] CPT-30484 Level 4 Est. Patient 12:08:40 SNOW REMOVING SUPERVISOR Brii Are [facility] CPT-96823 Level 3 Est. Patient 09:24:42 CDT Brii Are Formerly named [facility] CPT-99158 Level 3 Est. Patient 09:12:56 CDT Arie mcqueen MD [facility] CPT-48632 Level 3 Est. Patient 16:40:54 CDT Jose Zhong MD [facility]-94089 Level 2 Est. Patient 13:01:13 CDT Brii Are Formerly named [facility] CPT-88942 Level 3 Est. Patient 11:55:30 SNOW REMOVING SUPERVISOR Jono black [facility] CPT-82572 Level 3 Est. Patient 09:52:36 SNOW REMOVING SUPERVISOR Brii Are [facility] CPT-54320 Level 3 Est. Patient 16:25:33 SNOW REMOVING SUPERVISOR Rich Rosales MD [facility] CPT-92986 Level 3 Est. Patient 20:33:55 CDT Arie mcqueen MD [facility] CPT-24308 Level 3 Est. Patient 14:18:20 CDT Rich Rosales MD [facility] CPT-81186 Level 4 Est. Patient 09:34:31 CDT Arie mcqueen MD [facility]-61126 Level 3 Est. Patient 09:08:55 SNOW REMOVING SUPERVISOR Liliana vincent MD PhD [facility] CPT-55582 Level 3 Est. Patient 16:44:07 SNOW REMOVING SUPERVISOR Arie mcqueen MD [facility] CPT-17833 Level 3 Est. Patient 10:44:27 CDT Arie mcqueen MD [facility] CPT-82354 Level 3 Est. Patient 08:55:41 CDT Jose Zhong MD [facility] CPT-11010 Level 3 Est. Patient 18:37:31 CDT Liliana vincent MD PhD [facility] CPT-89365 Level 3 Est. Patient 14:28:23 CDT Abelardo marroquin PA [facility] CPT-80462 Level 3 Est. Patient 15:18:13 SNOW REMOVING SUPERVISOR Arie mcqueen MD [facility] CPT-45637 Level 3 Est. Patient 10:11:29 SNOW REMOVING SUPERVISOR Arie mcqueen MD [facility] CPT-11695 Level 3 Est. Patient 10:55:57 SNOW REMOVING SUPERVISOR Jono black DO [facility] CPT-23048 Level 3 Est. Patient 17:29:05 CDT Arie mcqueen MD [facility] Procedures Code Procedure Name Date Entry Date Standard Desc ription CPT-70550 Ear Wash with irrigation 17:21:41 CDT 07/04 CPT-51189 Nexplanon Removal 15:40:28 CDT CPT-20935 Sono transvag pelvis non OB uterus ovari es cervix - XRAY USE ONLY 08:58:14 SNOW REMOVING SUPERVISOR CPT-44904 UA w micro - LAB USE ONLY 16:04:56 SNOW REMOVING SUPERVISOR 2015 CPT-37958 Wet Prep/GEN - LAB USE ONLY 16:04:56 SNOW REMOVING SUPERVISOR 20 08/10/29 CPT-85416 First Vx - Ix admin via ID I M or jet injects without counseling by physician 16:57:10 CDT CPT-02380 Fluzone Preservative Free Intramuscular Suspension 16:57:10 CDT CPT-J0696 Rocephin 1000 mg (Ceftriaxone) 11:49:23 CDT CPT-J1040 Depo Medrol 80 mg (Methyl Prednisolone A cetate) 11:49:23 CDT CPT-J1100 Decadron 8mg (Dexamethasone) 11:49:23 CDT 2 CPT-62587 Abx/Therapy Injection 11:49:23 CDT CPT-30655 Abx/Therapy Injection 11:49:23 CDT CPT-61228 Abd compl w upright 09:07:26 SNOW REMOVING [employer]PERVISOR CPT-11163 Ear Wash 16:12:47 [employer] REMOVING SUPERVISOR CPT-OV Office Visit 11:12:01 CDT CPT-OV Office Visit 15:30:23 CDT CPT-48713 Sono pelvis non OB uterus ovaries cervix 15:50:44 CDT CPT-59319 Hand comp min 3V 16:42:32 CDT CPT-59377 Abd compl w upright 12:17:01 CDT CPT-21072 Nexplanon Placement 15:07:39 [employer] REMOVING SUPERVISOR CPT-58414 Removal of IUD 15:07:39 [employer] REMOVING SUPERVISOR CPT-75712 TB Tubersol 12:09:32 CDT CPT-63323 TB Tubersol 13:55:43 CDT
--- OUTSIDE RECORDS SUMMARY | 2020-03-03 07:11 | XMS REPORT | Clinical Summary ---
Author Author Admin, Diamante Marcelo Organization [facility] Address Unknown Phone Unavailable Allergies, Adverse [...] specified site; multiple sites Pharyngitis 462 Active iRch Rosales MD Acute pharyngitis Gastroenteritis, acute 558.9 [...] with depression 300.4 Active Brii Ramirez l BAKER APPRENTICE Dysthymic disorder URI 465.9 Active Jono Gagnon [...] respiratory manifestations Sinusitis 473.9 Active Jessica Heaton BAKER APPRENTICE Unspecified sinusitis (chronic) Other mixed anxiety 300.00 [...] Vaginal bleeding ICD-623.8 Inactive Jose Mcwilliams MD Urinary frequency ICD-788.41 Inactive Jose Zhong MD Medication List Medication Instructions Start Date Stop Date Generic Name NDC Status Provider Patient Instruction AMOXICILLIN 875 MG ORAL TABLET 1 tab by mouth twice daily AMOXICILLIN [id number] Active Brii Russ APRN Active ALPRAZOLAM 0.25 MG ORAL TABLET 1 tablet by mouth twice a day as needed for stress/anxiety ALPRAZOLAM 46370245939 Active Arie whittington MD Active ESCITALOPRAM OXALATE 10 MG ORAL TABLET take 1 tab po qhs for mod 20 10/04/18 ESCITALOPRAM OXALATE 14507896664 Active Arie Casper MD Active TUSSIONEX PENNKINETIC ER 10-8 MG/5ML ORAL SUSPENSION E XTENDED RELEASE 5ml po q12hr PRN Cough HYDROCOD POLST-CHLORPHEN POLST 5 3988720653 No Longer Active Myrna Roberto MD Active ZITHROMAX Z-EMIL 250 MG TABS Take two tablets today and then 1 tablet daily for 4 days AZITHROMYCIN 97190525667 No Longer Active Flaco Rosales MD Active GUAIFENESIN DM 400-20 MG ORAL TABLET 1 pill by mouth t wice daily, if needed for cough DEXTROMETHORPHAN-GUAIFENESIN 66593264588 No Longer Active Rich Rosales MD Active CEFDINIR 300 MG ORAL CAPSULE 1 po BID x 10 days CEFDINIR 83942448195 No Longer Active Jillarlen Heaton APRN Active CHERATUSSIN AC 100-10 MG/5ML ORAL SYRUP 1 tsp by mouth every 4 hours as needed for cough GUAIFENESIN-CODEINE 96539922543 No Longe r Active Waynellarlen Heaton APRN Active TAMIFLU 75 MG ORAL CAPSULE 1 po BID x 5 days 0 OSELTAMIVIR PHOSPHATE 58181329005 No Longer Active Jose Zhong MD Activ e ZITHROMAX Z-EMIL 250 MG ORAL TABLET 2 today, then 1 daily for 4 d ays AZITHROMYCIN 71270007572 No Longer Active Arie Casper MD Active PROTONIX 40 MG ORAL TABLET DELAYED RELEASE 1 po q a.m. PANTOPRAZOLE SODIUM 19439368336 No Longer Active Arie Casper MD Active BACTRIM DS 800-160 MG ORAL TABLET 1 tab by mouth twice daily 201 05/02/30 TRIMETHOPRIM-SULFAMETHOXAZOLE 38008541671 No Longer Active R [facility] Active NEXPLANON IMPLANT right arm subcutaneously ETONOGESTREL IMPL 54933516681 No Longer Active Brii Russ APRN Active TUSSIONEX PENNKINETIC ER 10-8 MG/5ML ORAL SUSPENSION E XTENDED RELEASE 5ml po q12hr PRN Cough HYDROCOD POLST-CHLORPHEN POLST 5 3382424351 No Longer Active Brii Russ APRN Active CETIRIZINE HCL 10 MG ORAL TABLET 1 po qd PRN Allergies CETIRIZINE HCL 16689105295 No Longer Active Brii Russ APRN Activ e PREDNISONE 20 MG ORAL TABLET 2 tabs daily for 3 days, 1 tab daily for 3 days, 1/2 tab daily for 2 days PREDNISONE 80667121958 No Longer Active Arie Casper MD Active LOMOTIL 2.5-0.025 MG ORAL TABLET 1 tab po four times a day as needed for diarrhea DIPHENOXYLATE-ATROPINE 53309531370 No Lo nger Active Arie Casper MD Active ZOLOFT 50 MG ORAL TABLET 1 tablet by mouth daily 12/08 SERTRALINE HCL 52557759484 No Longer Active Arie Casper MD Ac tive NAPROXEN 500 MG ORAL TABLET Take 1 tab BID NAPR OXEN 24726839391 No Longer Active Arie Casper MD Active CEFDINIR 300 MG ORAL CAPSULE 1 po BID x 10 days CEFDINIR 08026535726 No Longer Active Brii Russ APRN Active PREDNISONE 20 MG ORAL TABLET 1 tablet daily for airway inflammat ion PREDNISONE 88200269359 No Longer Active Brii Russ APRN A ctive CEFDINIR 300 MG ORAL CAPSULE 1 po BID x 10 days CEFDINIR 58017510057 No Longer Active Jono Gagnon DO Active FLONASE 50 MCG/ACT NASAL SUSPENSION 1 spray each nostr il twice daily for allergies and runny nose until gone FLUT ICASONE PROPIONATE 89940506832 No Longer Active Jono Gagnon DO Active ALPRAZOLAM 0.25 MG ORAL TABLET 1 tablet by mouth every 8 hours as needed for stress ALPRAZOLAM 38866649670 No Longer Active Jono Gagnon DO Active ZITHROMAX Z-EMIL 250 MG ORAL TABLET 2 today, then 1 daily for 4 d ays AZITHROMYCIN 13946309176 No Longer Active Arie Casper MD Active PREDNISONE 20 MG ORAL TABLET 2 tabs daily for 3 days, 1 tab daily for 3 days, 1/2 tab daily for 2 days PREDNISONE 96168488532 No Longer Active Brii Russ APRN Active PREDNISONE 20 MG ORAL TABLET 1 tablet twice daily for 2 days, then 1 tablet once daily for 2 days PREDNISONE 63576366253 No Longer Active Brii Russ APRN Active PROMETHAZINE HCL 12.5 MG ORAL TABLET 1 tablet by mouth every 6 hours as needed for nausea/vomiting PROMETHAZINE HCL 48208838704 No L onger Active Jono Gagnon DO Active CITRATE OF MAGNESIA ORAL SOLUTION 1 bottle today for constipatio n MAGNESIUM CITRATE 67468867050 No Longer Active Jono Gagnon DO Active ZOFRAN 4 MG ORAL TABLET 1 TAB PO Q 6 HRS PRN NAUSEA 20 07/10/15 ONDANSETRON HCL 24047696223 No Longer Active Brii Russ APRN Acti ve LOMOTIL 2.5-0.025 MG ORAL TABLET 1 to 2 four times a day as needed for diarrhea DIPHENOXYLATE-ATROPINE 24274933670 No Longer Active January Russ APRN Active AMOXICILLIN 500 MG ORAL TABLET 2 tabs twice a day for 10 days 20 07/09/11 AMOXICILLIN 42099062268 No Longer Active Brii Russ APRN Active CYCLOBENZAPRINE HCL 10 MG ORAL TABLET 1/2 - 1 tablet b y mouth three times daily as needed for muscle spasm/pain CYCLOBENZAPRINE HCL 59094689040 No Longer Active Arie Casper MD Active LOMOTIL 2.5-0.025 MG ORAL TABLET 1 to 2 four times a day as needed for diarrhea DIPHENOXYLATE-ATROPINE 04111352465 No Longer Active Fozia Casper MD Active MACROBID 100 MG ORAL CAPSULE 1 cap by mouth twice daily NITROFURANTOIN MONOHYD MACRO 59269332072 No Longer Active Arie Casper MD Active ZYRTEC ALLERGY 10 MG ORAL CAPSULE 1 po qd CE TIRIZINE HCL 59348628766 No Longer Active Arie Casper MD Active AZITHROMYCIN 250 MG ORAL TABLET 2 po qd x 1 day, then 1 po q d x 4 days AZITHROMYCIN 68994929825 No Longer Active Jillina Fra naomi BAKER APPRENTICE Active PREDNISONE 20 MG ORAL TABLET 2 tabs daily for 3 days, 1 tab daily for 3 days, 1/2 tab daily for 2 days PREDNISONE 24337519908 No Longer Active Jillina Frazell BAKER APPRENTICE Active PROMETHAZINE HCL 25 MG ORAL TABLET 1 four times a day as nee ded for vomiting PROMETHAZINE HCL 55903361722 No Longer Active Myrna Roberto MD Active BACTRIM DS 800-160 MG ORAL TABLET 1 twice a day 05/30 SULFAMETHOXAZOLE-TRIMETHOPRIM 19986800200 No Longer Active Myrna Roberto MD Active VICKS DAYQUIL SEVERE COLD/FLU TABLET 1 tab every 6 hours prn 201 02/22/17 [id number] TABS 46457696771 No Longer Active K fany Roberto MD Active GUAIFENESIN-CODEINE 100-10 MG/5ML ORAL SYRUP 2 tsp every 6 hours prn GUAIFENESIN-CODEINE 74600874465 No Longer Active Myrna Roberto MD Active NAPROXEN 500 MG ORAL TABLET one tab PO BID NAPR OXEN 31891753719 No Longer Active Myrna Roberto MD Active AUGMENTIN 875-125 MG ORAL TABLET 1 tab by mouth twice daily with food AMOXICILLIN-POT CLAVULANATE 14989444649 No Longer Act zaid Liliana Estrada MD PhD Active AMOXICILLIN 500 MG ORAL CAPSULE 1 tab by mouth 3 times daily 201 02/21/05 AMOXICILLIN 10967685772 No Longer Active Liliana Estrada MD PhD Active TESSALON PERLES 100 MG ORAL CAPSULE 1 tablet by mouth 3 times da cory BENZONATATE 93299007821 No Longer Active Liliana Estrada MD PhD Active FLAGYL 500 MG ORAL TABLET 1 tablet by mouth two times daily 2014 METRONIDAZOLE 56820067622 No Longer Active Nilam Gus Doran tive ZITHROMAX 250 MG ORAL TABLET 2 po today, then 1 po q days 2-5 20 06/08/16 AZITHROMYCIN 25184042429 No Longer Active Arie Casper MD Active VITAMINS 0.8 MG ORAL TABLET take 1 tab po qday [id number] 95739249935 No Longer Active Arie Casper MD Active IBUPROFEN 800 MG ORAL TABLET take one po Q 8 hours 201 02/01/16 IBUPROFEN 28987594450 No Longer Active Arie Casper MD Acti ve [facility] TUSSIN COUGH/COLD CF 5-10-100 MG/5ML ORAL LIQUID 2 teasp oons every 4 hours [id number] 62200149752 No Longer Active Blaine Casper MD Active COMTREX COLD/COUGH DAY/NITE MS 5-2-10-325 MG ORAL 2 caps deja ry 4 hours [id number] 55375957277 No Longer Active Landon Casper MD Active CHLORASEPTIC MAX SORE THROAT 15-10 MG MOUTH/THROAT LOZENGE 1 every 2 hours prn BENZOCAINE-MENTHOL 39504116723 No Longer Active Arie Casper MD Active PREDNISONE 20 MG ORAL TABLET 2 tabs daily for 3 days, 1 tab daily for 3 days, 1/2 tab daily for 2 days PREDNISONE 36819778750 No Longer Active Jose Zhong MD Active AZITHROMYCIN 250 MG ORAL TABLET 2 po qd x 1 day, then 1 po q d x 4 days AZITHROMYCIN 39864253237 No Longer Active Jose Mcwilliams MD Active ZOFRAN ODT 4 MG ORAL TABLET DISINTEGRATING 1 po q6hr PRN Nausea ONDANSETRON 42234861418 No Longer Active Rich Rosales MD Active ZOFRAN 4 MG ORAL TABLET 1 tablet every 4 hours ONDANSETRON HCL 36997262838 No Longer Active Rich Rosales MD Activ e MUCINEX 600 MG ORAL TABLET EXTENDED RELEASE 12 HOUR Ta ke 1-2 tablets every 12 hours GUAIFENESIN 08365185609 No Longer Active Rich Rosales MD Active BACTRIM 400-80 MG ORAL TABLET take one po BID SULFAMETHOXAZOLE-TRIMETHOPRIM 63845884167 No Longer Active Abelardo HERNANDEZ Active AZITHROMYCIN 500 MG ORAL TABLET 1 PO q day x 6 days 20 03/02/23 AZITHROMYCIN 79960537906 No Longer Active Tin HERNANDEZ Activ e ZITHROMAX 250 MG ORAL TABLET 2 po today, then 1 po q days 2-5 20 10/03/08 AZITHROMYCIN 72391056313 No Longer Active Arie Casper MD Active ZITHROMAX 250 MG ORAL TABLET 2 po today, then 1 po q days 2-5 20 09/23/25 AZITHROMYCIN 27581876529 No Longer Active Arie Casper MD Active AMOXICILLIN 500 MG ORAL CAPSULE 1 tab by mouth 3 times daily 201 11/24/09 AMOXICILLIN 44377392977 No Longer Active Arie Casper MD Active BACTRIM DS 800-160 MG ORAL TABLET 1 tab by mouth twice daily 201 11/03/14 TRIMETHOPRIM-SULFAMETHOXAZOLE 86022013141 No Longer Active Fozia Casper MD Active AMOXICILLIN 500 MG ORAL TABLET take 1 tab po TID 08/05 AMOXICILLIN 21531693574 No Longer Active Arie Casper MD Acti [...] 4 hours ZOFRAN 4 MG ORAL TABLET 777308 ONDANSETRON HCL Inactive ZOFRAN ODT 4 MG ORAL TABLET DISINTEGRATING 1 po q6hr PRN Nausea ZOFRAN ODT 4 MG ORAL TABLET DISINTEGRATING 381103 ONDAN SETRON Inactive CHLORASEPTIC MAX SORE THROAT 15-10 MG MOUTH/THROAT LOZENGE 1 every 2 hours prn CHLORASEPTIC MAX SORE THROAT 15-10 MG MOUTH/THROAT LOZENGE BENZOCAINE-MENTHOL Inactive COMTREX COLD/COUGH DAY/NITE MS 5-2-10-325 MG ORAL 2 caps deja ry 4 hours COMTREX COLD/COUGH DAY/NITE MS 5-2-10-325 MG ORA L [id number] Inactive [facility] TUSSIN COUGH/COLD CF 5-10-100 MG/5ML ORAL LIQUID 2 teasp oons every 4 hours [facility] TUSSIN COUGH/COLD CF 5-10-100 MG/5ML ORAL LI QUID [id number] Inactive IBUPROFEN 800 MG ORAL TABLET take one po Q 8 hours 201 02/01/16 IBUPROFEN 800 MG ORAL TABLET IBUPROFEN Inactive VITAMINS 0.8 MG ORAL TABLET take 1 tab po qday VITAMINS 0.8 MG ORAL TABLET [id number] E-FA Inactive TESSALON PERLES 100 MG ORAL CAPSULE 1 tablet by mouth 3 times da cory TESSALON PERLES 100 MG ORAL CAPSULE 19730630 BENZONATATE Inactive AMOXICILLIN 500 MG ORAL CAPSULE 1 tab by mouth 3 times daily 201 02/21/05 AMOXICILLIN 500 MG ORAL CAPSULE 522361 AMOXICILLIN Inactive GUAIFENESIN-CODEINE 100-10 MG/5ML ORAL SYRUP 2 tsp every 6 hours prn GUAIFENESIN-CODEINE 100-10 MG/5ML ORAL SYRUP 656361 GUAIFENESIN-CODEINE Inactive VICKS DAYQUIL SEVERE COLD/FLU TABLET 1 tab every 6 hours prn 201 02/22/17 VICKS DAYQUIL SEVERE COLD/FLU TABLET PHENYLEPHRI QQ-TS-TK-APAP TABS Inactive BACTRIM DS 800-160 MG ORAL TABLET 1 twice a day 05/30 BACTRIM DS 800-160 MG ORAL TABLET 220707 SULFAMETHOXAZOLE-TRIMETHOPRIM Inactiv e PROMETHAZINE HCL 25 MG ORAL TABLET 1 four times a day as nee ded for vomiting PROMETHAZINE HCL 25 MG ORAL TABLET 345275 PROMETHAZINE HCL Inactive ZYRTEC ALLERGY 10 MG ORAL CAPSULE 1 po qd ZYRTEC ALLERGY 10 MG ORAL CAPSULE CETIRIZINE HCL Inactive MACROBID 100 MG ORAL CAPSULE 1 cap by mouth twice daily MACROBID 100 MG ORAL CAPSULE 5863755 NITROFURANTOIN MONOHYD MACRO In active LOMOTIL 2.5-0.025 MG ORAL TABLET 1 to 2 four times a day as needed for diarrhea LOMOTIL 2.5-0.025 MG ORAL TABLET 9513041 DIPHENOXYLATE-ATROPINE Inactive CYCLOBENZAPRINE HCL 10 MG ORAL TABLET 1/2 - 1 tablet b y mouth three times daily as needed for muscle spasm/pain CYCLOBEN ZAPRINE HCL 10 MG ORAL TABLET 097144 CYCLOBENZAPRINE HCL Inactive AMOXICILLIN 500 MG ORAL TABLET 2 tabs twice a day for 10 days 20 07/09/11 AMOXICILLIN 500 MG ORAL TABLET 017332 AMOXICILLIN I nactive LOMOTIL 2.5-0.025 MG ORAL TABLET 1 to 2 four times a day as needed for diarrhea LOMOTIL 2.5-0.025 MG ORAL TABLET 3756712 DIPHENOXYLATE-ATROPINE Inactive ZOFRAN 4 MG ORAL TABLET 1 TAB PO Q 6 HRS PRN NAUSEA 20 07/10/15 ZOFRAN 4 MG ORAL TABLET 595580 ONDANSETRON HCL Inactive CITRATE OF MAGNESIA ORAL SOLUTION 1 bottle today for constipatio n CITRATE OF MAGNESIA ORAL SOLUTION 5962376 MAGNESIUM CITR ATE Inactive PROMETHAZINE HCL 12.5 MG ORAL TABLET 1 tablet by mouth every 6 hours as needed for nausea/vomiting PROMETHAZINE HCL 12.5 MG ORA L TABLET 405714 PROMETHAZINE HCL Inactive PREDNISONE 20 MG ORAL TABLET 1 tablet twice daily for 2 days, then 1 tablet once daily for 2 days PREDNISONE 20 MG ORAL TABLET 853525 PREDNISONE Inactive ALPRAZOLAM 0.25 MG ORAL TABLET 1 tablet by mouth every 8 hours as needed for stress ALPRAZOLAM 0.25 MG ORAL TABLET 000781 ALPRA ZOLAM Inactive FLONASE 50 MCG/ACT NASAL SUSPENSION 1 spray each nostr il twice daily for allergies and runny nose until gone FLON ASE 50 MCG/ACT NASAL SUSPENSION 7429617 FLUTICASONE PROPIONATE Inactive PREDNISONE 20 MG ORAL TABLET 1 tablet daily for airway inflammat ion PREDNISONE 20 MG ORAL TABLET 709307 PREDNISONE [place] ctive NAPROXEN 500 MG ORAL TABLET Take 1 tab BID NAPROXEN 500 MG ORAL TABLET 578356 NAPROXEN Inactive ZOLOFT 50 MG ORAL TABLET 1 tablet by mouth daily 12/08 ZOLOFT 50 MG ORAL TABLET 741491 SERTRALINE HCL Inactive LOMOTIL 2.5-0.025 MG ORAL TABLET 1 tab po four times a day as needed for diarrhea LOMOTIL 2.5-0.025 MG ORAL TABLET 8535807 DIPHENOXYLATE-ATROPINE Inactive CETIRIZINE HCL 10 MG ORAL TABLET 1 po qd PRN Allergies CETIRIZINE HCL 10 MG ORAL TABLET 2273597 CETIRIZINE HCL Inactiv e TUSSIONEX PENNKINETIC ER 10-8 MG/5ML ORAL SUSPENSION E XTENDED RELEASE 5ml po q12hr PRN Cough TUSSIONEX PENNKINETI C ER 10-8 MG/5ML ORAL SUSPENSION EXTENDED RELEASE HYDROCOD POLST-CHLORPHEN POLST I nactive NEXPLANON IMPLANT right arm subcutaneously NEXPLANON IMPLANT ETONOGESTREL IMPL Inactive PROTONIX 40 MG ORAL TABLET DELAYED RELEASE 1 po q a.m. PROTONIX 40 MG ORAL TABLET DELAYED RELEASE 443597 PANTOPRAZOLE SODI UM Inactive CHERATUSSIN AC 100-10 MG/5ML ORAL SYRUP 1 tsp by mouth every 4 hours as needed for cough CHERATUSSIN AC 100-10 MG/5ML ORAL SYRUP 9 84564 GUAIFENESIN-CODEINE Inactive GUAIFENESIN DM 400-20 MG ORAL [...] TID 08/05 AMOXICILLIN 500 MG ORAL TABLET 372062 AMOXICILLIN Inactive AMOXICILLIN 500 MG ORAL CAPSULE 1 tab by mouth 3 times daily 201 11/24/09 AMOXICILLIN 500 MG ORAL CAPSULE 310975 AMOXICILLIN Inactive ZITHROMAX 250 MG ORAL TABLET 2 po today, then 1 po q days 2-5 20 09/23/25 ZITHROMAX 250 MG ORAL TABLET 939130 AZITHROMYCIN [place] ctive ZITHROMAX 250 MG ORAL TABLET 2 po today, then 1 po q days 2-5 20 10/03/08 ZITHROMAX 250 MG ORAL TABLET 415980 AZITHROMYCIN [place] ctive AZITHROMYCIN 500 MG ORAL TABLET 1 PO q day x 6 days 03/02/23 AZITHROMYCIN 500 MG ORAL TABLET 9116070 AZITHROMYCIN Inactive BACTRIM 400-80 MG ORAL TABLET take one po BID BACTRIM 400- 80 MG ORAL TABLET 664659 SULFAMETHOXAZOLE-TRIMETHOPRIM Inactive AZITHROMYCIN 250 MG ORAL TABLET 2 po qd x 1 day, then 1 po q d x 4 days AZITHROMYCIN 250 MG ORAL TABLET 064448 AZITHROMY ALLISON Inactive PREDNISONE 20 MG ORAL TABLET 2 tabs daily for 3 days, 1 tab daily for 3 days, 1/2 tab daily for 2 days PREDNISONE 20 MG ORAL T ABLET 094513 PREDNISONE Inactive ZITHROMAX 250 MG ORAL TABLET 2 po today, then 1 po q days 2-5 20 06/08/16 ZITHROMAX 250 MG ORAL TABLET 959906 AZITHROMYCIN [place] ctive FLAGYL 500 MG ORAL TABLET 1 tablet by mouth two times daily 2014 FLAGYL 500 MG ORAL TABLET 541485 METRONIDAZOLE Inacti ve AUGMENTIN 875-125 MG ORAL TABLET 1 tab by mouth twice daily with food AUGMENTIN 875-125 MG ORAL TABLET 462830 AMOXICIL ELSA-POT CLAVULANATE Inactive NAPROXEN 500 MG ORAL TABLET one tab PO BID NAPROXEN 500 MG ORAL TABLET 021111 NAPROXEN Inactive PREDNISONE 20 MG ORAL TABLET 2 tabs daily for 3 days, 1 tab daily for 3 days, 1/2 tab daily for 2 days PREDNISONE 20 MG ORAL T ABLET 314632 PREDNISONE Inactive AZITHROMYCIN 250 MG ORAL TABLET 2 po qd x 1 day, then 1 po q d x 4 days AZITHROMYCIN 250 MG ORAL TABLET 543941 AZITHROMY ALLISON Inactive PREDNISONE 20 MG ORAL TABLET 2 tabs daily for 3 days, 1 tab daily for 3 days, 1/2 tab daily for 2 days PREDNISONE 20 MG ORAL T ABLET 583018 PREDNISONE Inactive ZITHROMAX Z-EMIL 250 MG ORAL TABLET 2 today, then 1 daily for 4 d ays ZITHROMAX Z-EMIL 250 MG ORAL TABLET 358107 AZITHROMYCIN Inactive CEFDINIR 300 MG ORAL CAPSULE [...] days PREDNISONE 20 MG ORAL T ABLET 990234 PREDNISONE Inactive BACTRIM DS 800-160 MG ORAL TABLET 1 tab by mouth twice daily 201 05/02/30 BACTRIM DS 800-160 MG ORAL TABLET 711574 TRIMETHOPRIM-SULFAMETHOXAZOLE Inactive ZITHROMAX Z-EMIL 250 MG ORAL TABLET 2 today, then 1 daily for 4 d ays ZITHROMAX Z-EMIL 250 MG ORAL TABLET 544904 AZITHROMYCIN Inactive TAMIFLU 75 MG ORAL CAPSULE 1 po BID x 5 days 0 TAMIFLU 75 MG ORAL CAPSULE 722865 OSELTAMIVIR PHOSPHATE Inactive CEFDINIR 300 MG ORAL CAPSULE 1 po BID x 10 days 2018/01/03 CEFDINIR 300 MG ORAL CAPSULE 20030127 CEFDINIR Inactive ZITHROMAX Z-EMIL 250 MG TABS Take two tablets today and then 1 tablet daily for 4 days ZITHROMAX Z-EMIL 250 MG TABS 512147 AZITHROM YCIN Inactive Advance Directives Directive Description [...] Negative Encounters Code Encounter Date Provider Facility CPT-29958 [id number] Vst-Est Level III 17:21:41 CDT Me lobito Russ [facility]-10215 [id number] Vst-Est Level IV 13:30:22 C NIC Casper MD [facility] CPT-48324 Level 4 Est. Patient 13:05:26 CDT Myrna maldonado MD [facility]-27725 [id number] Vst-Est Level IV 20:50:21 C NIC Casper MD [facility] CPT-58829 Level 3 Est. Patient 11:49:34 MARBLE FINISHER Jessica boyd [facility] CPT-47237 Level 3 Est. Patient 14:55:50 MARBLE FINISHER Jose Zhong MD [facility] CPT-33568 Level 3 Est. Patient 10:21:41 MARBLE FINISHER Arie mcqueen MD [facility] CPT-23388 Level 3 Est. Patient 11:35:15 MARBLE FINISHER Arie mcqueen MD [facility]-91843 Level 3 Est. Patient 15:40:28 CDT Brii escalante [facility] CPT-53791 Level 3 Est. Patient 16:40:36 CDT Arie mcqueen MD [facility] CPT-20364 Level 4 Est. Patient 15:29:22 MARBLE FINISHER Arie mcqueen MD [facility] CPT-10307 Level 3 Est. Patient 15:18:16 MARBLE FINISHER Jono black [facility] CPT-12603 Level 4 Est. Patient 12:08:40 MARBLE FINISHER Brii Are ll [facility] CPT-08378 Level 3 Est. Patient 09:24:42 CDT Brii Are ll [facility] CPT-29890 Level 3 Est. Patient 09:12:56 CDT Arie mcqueen MD [facility] CPT-12741 Level 3 Est. Patient 16:40:54 CDT Jose Zhong MD [facility] CPT-54615 Level 2 Est. Patient 13:01:13 CDT Brii Are ll [facility] CPT-08097 Level 3 Est. Patient 11:55:30 MARBLE FINISHER Jono black [facility] CPT-87936 Level 3 Est. Patient 09:52:36 MARBLE FINISHER Brii Are ll [facility] CPT-76261 Level 3 Est. Patient 16:25:33 MARBLE FINISHER Rich Rosales MD [facility] CPT-21657 Level 3 Est. Patient 20:33:55 CDT Arie mcqueen MD [facility] CPT-63562 Level 3 Est. Patient 14:18:20 CDT Rich Rosales MD [facility] CPT-15833 Level 4 Est. Patient 09:34:31 CDT Arie mcuqeen MD [facility] CPT-86179 Level 3 Est. Patient 09:08:55 MARBLE FINISHER Liliana vincent MD PhD [facility]-66291 Level 3 Est. Patient 16:44:07 MARBLE FINISHER Arie mcqueen MD [facility] CPT-33150 Level 3 Est. Patient 10:44:27 CDT Arie mcqueen MD [facility] CPT-32156 Level 3 Est. Patient 08:55:41 CDT Jose Zhong MD [facility] CPT-26955 Level 3 Est. Patient 18:37:31 CDT Liliana vincent MD PhD [facility] CPT-54659 Level 3 Est. Patient 14:28:23 CDT Abelardo marroquin PA [facility] CPT-09789 Level 3 Est. Patient 15:18:13 MARBLE FINISHER Arie mcqueen MD [facility] CPT-53345 Level 3 Est. Patient 10:11:29 MARBLE FINISHER Arie mcqueen MD [facility] CPT-15337 Level 3 Est. Patient 10:55:57 MARBLE FINISHER Jono black DO [facility] CPT-73402 Level 3 Est. Patient 17:29:05 CDT Arie mcqueen MD [facility] Procedures Code Procedure Name Date Entry Date Standard Desc ription CPT-80807 Ear Wash with irrigation 17:21:41 CDT 07/04 CPT-15594 Nexplanon Removal 15:40:28 CDT CPT-71547 Sono transvag pelvis non OB uterus ovari es cervix - XRAY USE ONLY 08:58:14 MARBLE FINISHER CPT-19230 UA w micro - LAB USE ONLY 16:04:56 MARBLE FINISHER 2015 CPT-03338 Wet Prep/GEN - LAB USE ONLY 16:04:56 MARBLE FINISHER 20 08/10/29 CPT-03382 First Vx - Ix admin via ID I M or jet injects without counseling by physician 16:57:10 CDT CPT-70580 Fluzone Preservative Free Intramuscular Suspension 16:57:10 CDT CPT-J0696 Rocephin 1000 mg (Ceftriaxone) 11:49:23 CDT CPT-J1040 Depo Medrol 80 mg (Methyl Prednisolone A cetate) 11:49:23 CDT CPT-J1100 Decadron 8mg (Dexamethasone) 11:49:23 CDT 2 CPT-05025 Abx/Therapy Injection 11:49:23 CDT CPT-23116 Abx/Therapy Injection 11:49:23 CDT CPT-97502 Abd compl w upright 09:07:26 MARBLE FINISHER CPT-48998 Ear Wash 16:12:47 MARBLE FINISHER CPT-OV Office Visit 11:12:01 CDT CPT-OV Office Visit 15:30:23 CDT CPT-62360 Sono pelvis non OB uterus ovaries cervix 15:50:44 CDT CPT-09543 Hand comp min 3V 16:42:32 CDT CPT-92306 Abd compl w upright 12:17:01 CDT CPT-59947 Nexplanon Placement 15:07:39 MARBLE FINISHER CPT-73890 Removal of IUD 15:07:39 MARBLE FINISHER CPT-78303 TB Tubersol 12:09:32 CDT CPT-91326 TB Tubersol 13:55:43 CDT
--- OUTSIDE RECORDS SUMMARY | 2020-03-03 07:11 | XMS REPORT | Clinical Summary ---
Author Author Admin, Diamante Marcelo Organization [facility] Address Unknown Phone Unavailable Allergies, Adverse Reactions, [...] A cute pharyngitis Nausea 787.02 Active Brii Rsus APRN N ausea alone URI 465.9 Active [...] respiratory manifestations Sinusitis 473.9 Active Jessica Heaton HOME OFFICE CLAIMS EXAMINER Unspecified sinusitis (chronic) Other mixed anxiety 300.00 [...] outh daily, for acid reflux PANTOPRAZOLE SODIUM 63420081523 Active Roseann Crawford Active AMOXICILLIN 875 MG ORAL TABLET 1 tab by mouth twice daily 1 AMOXICILLIN 00558908173 Active Brii Russ APRN Active ALPRAZOLAM 0.25 MG ORAL TABLET 1 tablet by mouth twice a day as needed for stress/anxiety ALPRAZOLAM 31339674305 Active Arie whittington MD Active ESCITALOPRAM OXALATE 10 MG ORAL TABLET take 1 tab po qhs for mod 20 10/04/18 ESCITALOPRAM OXALATE 54836101448 Active Arie Casper MD Active TUSSIONEX PENNKINETIC ER 10-8 MG/5ML ORAL SUSPENSION E XTENDED RELEASE 5ml po q12hr PRN Cough HYDROCOD POLST-CHLORPHEN POLST 5 9832568675 No Longer Active Myrna Roberto MD Active ZITHROMAX Z-EMIL 250 MG TABS Take two tablets today and then 1 tablet daily for 4 days AZITHROMYCIN 57771061023 No Longer Active Flaco Rosales MD Active GUAIFENESIN DM 400-20 MG ORAL TABLET 1 pill by mouth t wice daily, if needed for cough DEXTROMETHORPHAN-GUAIFENESIN 78285903200 No Longer Active Rich Rosales MD Active CEFDINIR 300 MG ORAL CAPSULE 1 po BID x 10 days CEFDINIR 06272142204 No Longer Active Jessica Heaton APRN Active CHERATUSSIN AC 100-10 MG/5ML ORAL SYRUP 1 tsp by mouth every 4 hours as needed for cough GUAIFENESIN-CODEINE 42369779940 No Longe r Active Jessica Heaton APRN Active TAMIFLU 75 MG ORAL CAPSULE 1 po BID x 5 days 0 OSELTAMIVIR PHOSPHATE 45476315360 No Longer Active Jose Zhong MD Activ e ZITHROMAX Z-EMIL 250 MG ORAL TABLET 2 today, then 1 daily for 4 d ays AZITHROMYCIN 73499302623 No Longer Active Arie Casper MD Active PROTONIX 40 MG ORAL TABLET DELAYED RELEASE 1 po q a.m. PANTOPRAZOLE SODIUM 68193269533 No Longer Active Arie Casper MD Active BACTRIM DS 800-160 MG ORAL TABLET 1 tab by mouth twice daily 201 05/02/30 TRIMETHOPRIM-SULFAMETHOXAZOLE 46911750934 No Longer Active R [facility] Ty Active NEXPLANON IMPLANT right arm subcutaneously ETONOGESTREL IMPL 28265048590 No Longer Active Brii Areboris HOME OFFICE CLAIMS EXAMINER Active TUSSIONEX PENNKINETIC ER 10-8 MG/5ML ORAL SUSPENSION E XTENDED RELEASE 5ml po q12hr PRN Cough HYDROCOD POLST-CHLORPHEN POLST 5 0703806195 No Longer Active Brii Areboris HOME OFFICE CLAIMS EXAMINER Active CETIRIZINE HCL 10 MG ORAL TABLET 1 po qd PRN Allergies CETIRIZINE HCL 03722365392 No Longer Active Brii Russ HOME OFFICE CLAIMS EXAMINER Activ e PREDNISONE 20 MG ORAL TABLET 2 tabs daily for 3 days, 1 tab daily for 3 days, 1/2 tab daily for 2 days PREDNISONE 30671719072 No Longer Active Arie Casper MD Active LOMOTIL 2.5-0.025 MG ORAL TABLET 1 tab po four times a day as needed for diarrhea DIPHENOXYLATE-ATROPINE 99827902639 No Lo nger Active Arie Casper MD Active ZOLOFT 50 MG ORAL TABLET 1 tablet by mouth daily 12/08 SERTRALINE HCL 27646962521 No Longer Active Arie Casper MD Ac tive NAPROXEN 500 MG ORAL TABLET Take 1 tab BID NAPR OXEN 71582777860 No Longer Active Arie Casper MD Active CEFDINIR 300 MG ORAL CAPSULE 1 po BID x 10 days CEFDINIR 76185938053 No Longer Active Brii Areboris CABRERA Active PREDNISONE 20 MG ORAL TABLET 1 tablet daily for airway inflammat ion PREDNISONE 31657162170 No Longer Active Brii Russ APRN A ctive CEFDINIR 300 MG ORAL CAPSULE 1 po BID x 10 days CEFDINIR 77408613748 No Longer Active Jono Gagnon DO Active FLONASE 50 MCG/ACT NASAL SUSPENSION 1 spray each nostr il twice daily for allergies and runny nose until gone FLUT ICASONE PROPIONATE 28963882142 No Longer Active Jono Gagnon DO Active ALPRAZOLAM 0.25 MG ORAL TABLET 1 tablet by mouth every 8 hours as needed for stress ALPRAZOLAM 33386240966 No Longer Active Jono Gagnon DO Active ZITHROMAX Z-EMIL 250 MG ORAL TABLET 2 today, then 1 daily for 4 d ays AZITHROMYCIN 03099109239 No Longer Active Arie Casper MD Active PREDNISONE 20 MG ORAL TABLET 2 tabs daily for 3 days, 1 tab daily for 3 days, 1/2 tab daily for 2 days PREDNISONE 96602194487 No Longer Active Brii Russ APRN Active PREDNISONE 20 MG ORAL TABLET 1 tablet twice daily for 2 days, then 1 tablet once daily for 2 days PREDNISONE 40255665260 No Longer Active Brii Russ APRN Active PROMETHAZINE HCL 12.5 MG ORAL TABLET 1 tablet by mouth every 6 hours as needed for nausea/vomiting PROMETHAZINE HCL 83090802105 No L onger Active Jono Gagnon DO Active CITRATE OF MAGNESIA ORAL SOLUTION 1 bottle today for constipatio n MAGNESIUM CITRATE 07679132890 No Longer Active Jono Gagnon DO Active ZOFRAN 4 MG ORAL TABLET 1 TAB PO Q 6 HRS PRN NAUSEA 20 07/10/15 ONDANSETRON HCL 52556744805 No Longer Active Brii Russ APRN Acti ve LOMOTIL 2.5-0.025 MG ORAL TABLET 1 to 2 four times a day as needed for diarrhea DIPHENOXYLATE-ATROPINE 39447684542 No Longer Active January Russ APRN Active AMOXICILLIN 500 MG ORAL TABLET 2 tabs twice a day for 10 days 20 07/09/11 AMOXICILLIN 96120498595 No Longer Active Brii Russ APRN Active CYCLOBENZAPRINE HCL 10 MG ORAL TABLET 1/2 - 1 tablet b y mouth three times daily as needed for muscle spasm/pain CYCLOBENZAPRINE HCL 45078085465 No Longer Active Arie Casper MD Active LOMOTIL 2.5-0.025 MG ORAL TABLET 1 to 2 four times a day as needed for diarrhea DIPHENOXYLATE-ATROPINE 20222280906 No Longer Active Fozia Casper MD Active MACROBID 100 MG ORAL CAPSULE 1 cap by mouth twice daily NITROFURANTOIN MONOHYD MACRO 35566749896 No Longer Active Arie Casper MD Active ZYRTEC ALLERGY 10 MG ORAL CAPSULE 1 po qd CE TIRIZINE HCL 71485508898 No Longer Active Arie Casper MD Active AZITHROMYCIN 250 MG ORAL TABLET 2 po qd x 1 day, then 1 po q d x 4 days AZITHROMYCIN 82131311087 No Longer Active Jillina Marcell salgado HOME OFFICE CLAIMS EXAMINER Active PREDNISONE 20 MG ORAL TABLET 2 tabs daily for 3 days, 1 tab daily for 3 days, 1/2 tab daily for 2 days PREDNISONE 02978903777 No Longer Active Jillarlen Heaton HOME OFFICE CLAIMS EXAMINER Active PROMETHAZINE HCL 25 MG ORAL TABLET 1 four times a day as nee ded for vomiting PROMETHAZINE HCL 05757736540 No Longer Active Myrna Roberto MD Active BACTRIM DS 800-160 MG ORAL TABLET 1 twice a day 05/30 SULFAMETHOXAZOLE-TRIMETHOPRIM 01185857733 No Longer Active Myrna Roberto MD Active VICKS DAYQUIL SEVERE COLD/FLU TABLET 1 tab every 6 hours prn 201 02/22/17 [id number] TABS 07340413025 No Longer Active Chris Roberto MD Active GUAIFENESIN-CODEINE 100-10 MG/5ML ORAL SYRUP 2 tsp every 6 hours prn GUAIFENESIN-CODEINE 78438457090 No Longer Active Myrna Roberto MD Active NAPROXEN 500 MG ORAL TABLET one tab PO BID NAPR OXEN 98064255196 No Longer Active Myrna Roberto MD Active AUGMENTIN 875-125 MG ORAL TABLET 1 tab by mouth twice daily with food AMOXICILLIN-POT CLAVULANATE 35038841694 No Longer Act zaid Liliana Estrada MD PhD Active AMOXICILLIN 500 MG ORAL CAPSULE 1 tab by mouth 3 times daily 201 02/21/05 AMOXICILLIN 69184792387 No Longer Active Liliana Estrada MD PhD Active TESSALON PERLES 100 MG ORAL CAPSULE 1 tablet by mouth 3 times da cory BENZONATATE 93887050317 No Longer Active Liliana Estrada MD PhD Active FLAGYL 500 MG ORAL TABLET 1 tablet by mouth two times daily 2014 METRONIDAZOLE 75344257913 No Longer Active Nilam Raida Ac tive ZITHROMAX 250 MG ORAL TABLET 2 po today, then 1 po q days 2-5 20 06/08/16 AZITHROMYCIN 38456205196 No Longer Active Arie Casper MD Active VITAMINS 0.8 MG ORAL TABLET take 1 tab po qday [id number] 25823133819 No Longer Active Arie Casper MD Active IBUPROFEN 800 MG ORAL TABLET take one po Q 8 hours 201 02/01/16 IBUPROFEN 07328911874 No Longer Active Arie Casper MD Acti ve [facility] TUSSIN COUGH/COLD CF 5-10-100 MG/5ML ORAL LIQUID 2 teasp oons every 4 hours [id number] 59910158431 No Longer Active Blaine Casper MD Active COMTREX COLD/COUGH DAY/NITE MS 5-2-10-325 MG ORAL 2 caps deja ry 4 hours [id number] 38193676135 No Longer Active Landon Casper MD Active CHLORASEPTIC MAX SORE THROAT 15-10 MG MOUTH/THROAT LOZENGE 1 every 2 hours prn BENZOCAINE-MENTHOL 11341214124 No Longer Active Arie Casper MD Active PREDNISONE 20 MG ORAL TABLET 2 tabs daily for 3 days, 1 tab daily for 3 days, 1/2 tab daily for 2 days PREDNISONE 74157402753 No Longer Active Jose Zhong MD Active AZITHROMYCIN 250 MG ORAL TABLET 2 po qd x 1 day, then 1 po q d x 4 days AZITHROMYCIN 78044767855 No Longer Active Jose Mcwilliams MD Active ZOFRAN ODT 4 MG ORAL TABLET DISINTEGRATING 1 po q6hr PRN Nausea ONDANSETRON 35314554442 No Longer Active Rich Rosales MD Active ZOFRAN 4 MG ORAL TABLET 1 tablet every 4 hours ONDANSETRON HCL 98218833150 No Longer Active Rich Rosales MD Activ e MUCINEX 600 MG ORAL TABLET EXTENDED RELEASE 12 HOUR Ta ke 1-2 tablets every 12 hours GUAIFENESIN 91693372991 No Longer Active Rich Rosales MD Active BACTRIM 400-80 MG ORAL TABLET take one po BID SULFAMETHOXAZOLE-TRIMETHOPRIM 73050662335 No Longer Active Abelardo HERNANDEZ Active AZITHROMYCIN 500 MG ORAL TABLET 1 PO q day x 6 days 20 03/02/23 AZITHROMYCIN 98574054464 No Longer Active Tin HERNANDEZ Activ e ZITHROMAX 250 MG ORAL TABLET 2 po today, then 1 po q days 2-5 20 10/03/08 AZITHROMYCIN 34282058050 No Longer Active Arie Casper MD Active ZITHROMAX 250 MG ORAL TABLET 2 po today, then 1 po q days 2-5 20 09/23/25 AZITHROMYCIN 01591114599 No Longer Active Arie Casper MD Active AMOXICILLIN 500 MG ORAL CAPSULE 1 tab by mouth 3 times daily 201 11/24/09 AMOXICILLIN 30213546838 No Longer Active Arie Casper MD Active BACTRIM DS 800-160 MG ORAL TABLET 1 tab by mouth twice daily 201 11/03/14 TRIMETHOPRIM-SULFAMETHOXAZOLE 61242584984 No Longer Active Fozia Casper MD Active AMOXICILLIN 500 MG ORAL TABLET take 1 tab po TID 08/05 AMOXICILLIN 60474831828 No Longer Active Arie Casper MD Acti [...] 4 hours ZOFRAN 4 MG ORAL TABLET 265919 ONDANSETRON HCL Inactive ZOFRAN ODT 4 MG ORAL TABLET DISINTEGRATING 1 po q6hr PRN Nausea ZOFRAN ODT 4 MG ORAL TABLET DISINTEGRATING 053187 ONDAN SETRON Inactive CHLORASEPTIC MAX SORE THROAT 15-10 MG MOUTH/THROAT LOZENGE 1 every 2 hours prn CHLORASEPTIC MAX SORE THROAT 15-10 MG MOUTH/THROAT LOZENGE BENZOCAINE-MENTHOL Inactive COMTREX COLD/COUGH DAY/NITE MS 5-2-10-325 MG ORAL 2 caps deja ry 4 hours COMTREX COLD/COUGH DAY/NITE MS 5-2-10-325 MG ORA L [id number] Inactive [facility] TUSSIN COUGH/COLD CF 5-10-100 MG/5ML ORAL LIQUID 2 teasp oons every 4 hours [facility] TUSSIN COUGH/COLD CF 5-10-100 MG/5ML ORAL LI QUID [id number] Inactive IBUPROFEN 800 MG ORAL TABLET take one po Q 8 hours 201 02/01/16 IBUPROFEN 800 MG ORAL TABLET IBUPROFEN Inactive VITAMINS 0.8 MG ORAL TABLET take 1 tab po qday VITAMINS 0.8 MG ORAL TABLET [id number]-FA Inactive TESSALON PERLES 100 MG ORAL CAPSULE 1 tablet by mouth 3 times da cory TESSALON PERLES 100 MG ORAL CAPSULE 455135 BENZONATATE Inactive AMOXICILLIN 500 MG ORAL CAPSULE 1 tab by mouth 3 times daily 201 02/21/05 AMOXICILLIN 500 MG ORAL CAPSULE 257511 AMOXICILLIN Inactive GUAIFENESIN-CODEINE 100-10 MG/5ML ORAL SYRUP 2 tsp every 6 hours prn GUAIFENESIN-CODEINE 100-10 MG/5ML ORAL SYRUP 972483 GUAIFENESIN-CODEINE Inactive VICKS DAYQUIL SEVERE COLD/FLU TABLET 1 tab every 6 hours prn 201 02/22/17 VICKS DAYQUIL SEVERE COLD/FLU TABLET PHENYLEPHRI TC-RI-MD-APAP TABS Inactive BACTRIM DS 800-160 MG ORAL TABLET 1 twice a day 05/30 BACTRIM DS 800-160 MG ORAL TABLET 064252 SULFAMETHOXAZOLE-TRIMETHOPRIM Inactiv e PROMETHAZINE HCL 25 MG ORAL TABLET 1 four times a day as nee ded for vomiting PROMETHAZINE HCL 25 MG ORAL TABLET 582360 PROMETHAZINE HCL Inactive ZYRTEC ALLERGY 10 MG ORAL CAPSULE 1 po qd ZYRTEC ALLERGY 10 MG ORAL CAPSULE CETIRIZINE HCL Inactive MACROBID 100 MG ORAL CAPSULE 1 cap by mouth twice daily MACROBID 100 MG ORAL CAPSULE 4671962 NITROFURANTOIN MONOHYD MACRO In active LOMOTIL 2.5-0.025 MG ORAL TABLET 1 to 2 four times a day as needed for diarrhea LOMOTIL 2.5-0.025 MG ORAL TABLET 8191583 DIPHENOXYLATE-ATROPINE Inactive CYCLOBENZAPRINE HCL 10 MG ORAL TABLET 1/2 - 1 tablet b y mouth three times daily as needed for muscle spasm/pain CYCLOBEN ZAPRINE HCL 10 MG ORAL TABLET 736206 CYCLOBENZAPRINE HCL Inactive AMOXICILLIN 500 MG ORAL TABLET 2 tabs twice a day for 10 days 20 07/09/11 AMOXICILLIN 500 MG ORAL TABLET 313651 AMOXICILLIN I nactive LOMOTIL 2.5-0.025 MG ORAL TABLET 1 to 2 four times a day as needed for diarrhea LOMOTIL 2.5-0.025 MG ORAL TABLET 0718530 DIPHENOXYLATE-ATROPINE Inactive ZOFRAN 4 MG ORAL TABLET 1 TAB PO Q 6 HRS PRN NAUSEA 20 07/10/15 ZOFRAN 4 MG ORAL TABLET 322685 ONDANSETRON HCL Inactive CITRATE OF MAGNESIA ORAL SOLUTION 1 bottle today for constipatio n CITRATE OF MAGNESIA ORAL SOLUTION 8271147 MAGNESIUM CITR ATE Inactive PROMETHAZINE HCL 12.5 MG ORAL TABLET 1 tablet by mouth every 6 hours as needed for nausea/vomiting PROMETHAZINE HCL 12.5 MG ORA L TABLET 943869 PROMETHAZINE HCL Inactive PREDNISONE 20 MG ORAL TABLET 1 tablet twice daily for 2 days, then 1 tablet once daily for 2 days PREDNISONE 20 MG ORAL TABLET 287325 PREDNISONE Inactive ALPRAZOLAM 0.25 MG ORAL TABLET 1 tablet by mouth every 8 hours as needed for stress ALPRAZOLAM 0.25 MG ORAL TABLET 277898 ALPRA ZOLAM Inactive FLONASE 50 MCG/ACT NASAL SUSPENSION 1 spray each nostr il twice daily for allergies and runny nose until gone FLON ASE 50 MCG/ACT NASAL SUSPENSION 2787749 FLUTICASONE PROPIONATE Inactive PREDNISONE 20 MG ORAL TABLET 1 tablet daily for airway inflammat ion PREDNISONE 20 MG ORAL TABLET 606783 PREDNISONE [place] ctive NAPROXEN 500 MG ORAL TABLET Take 1 tab BID NAPROXEN 500 MG ORAL TABLET 451535 NAPROXEN Inactive ZOLOFT 50 MG ORAL TABLET 1 tablet by mouth daily 12/08 ZOLOFT 50 MG ORAL TABLET 095323 SERTRALINE HCL Inactive LOMOTIL 2.5-0.025 MG ORAL TABLET 1 tab po four times a day as needed for diarrhea LOMOTIL 2.5-0.025 MG ORAL TABLET 5225088 DIPHENOXYLATE-ATROPINE Inactive CETIRIZINE HCL 10 MG ORAL TABLET 1 po qd PRN Allergies CETIRIZINE HCL 10 MG ORAL TABLET 8085067 CETIRIZINE HCL Inactiv e TUSSIONEX PENNKINETIC ER 10-8 MG/5ML ORAL SUSPENSION E XTENDED RELEASE 5ml po q12hr PRN Cough TUSSIONEX PENNKINETI C ER 10-8 MG/5ML ORAL SUSPENSION EXTENDED RELEASE HYDROCOD POLST-CHLORPHEN POLST I nactive NEXPLANON IMPLANT right arm subcutaneously NEXPLANON IMPLANT ETONOGESTREL IMPL Inactive PROTONIX 40 MG ORAL TABLET DELAYED RELEASE 1 po q a.m. PROTONIX 40 MG ORAL TABLET DELAYED RELEASE 808354 PANTOPRAZOLE SODI UM Inactive CHERATUSSIN AC 100-10 MG/5ML ORAL SYRUP 1 tsp by mouth every 4 hours as needed for cough CHERATUSSIN AC 100-10 MG/5ML ORAL SYRUP 9 48313 GUAIFENESIN-CODEINE Inactive GUAIFENESIN DM 400-20 MG ORAL [...] TID 08/05 AMOXICILLIN 500 MG ORAL TABLET 232693 AMOXICILLIN Inactive AMOXICILLIN 500 MG ORAL CAPSULE 1 tab by mouth 3 times daily 201 11/24/09 AMOXICILLIN 500 MG ORAL CAPSULE 328789 AMOXICILLIN Inactive ZITHROMAX 250 MG ORAL TABLET 2 po today, then 1 po q days 2-5 20 09/23/25 ZITHROMAX 250 MG ORAL TABLET 783527 AZITHROMYCIN [place] ctive ZITHROMAX 250 MG ORAL TABLET 2 po today, then 1 po q days 2-5 20 10/03/08 ZITHROMAX 250 MG ORAL TABLET 595093 AZITHROMYCIN [place] ctive AZITHROMYCIN 500 MG ORAL TABLET 1 PO q day x 6 days 03/02/23 AZITHROMYCIN 500 MG ORAL TABLET 4326031 AZITHROMYCIN Inactive BACTRIM 400-80 MG ORAL TABLET take one po BID BACTRIM 400- 80 MG ORAL TABLET 411001 SULFAMETHOXAZOLE-TRIMETHOPRIM Inactive AZITHROMYCIN 250 MG ORAL TABLET 2 po qd x 1 day, then 1 po q d x 4 days AZITHROMYCIN 250 MG ORAL TABLET 564463 AZITHROMY ALLISON Inactive PREDNISONE 20 MG ORAL TABLET 2 tabs daily for 3 days, 1 tab daily for 3 days, 1/2 tab daily for 2 days PREDNISONE 20 MG ORAL T ABLET 808899 PREDNISONE Inactive ZITHROMAX 250 MG ORAL TABLET 2 po today, then 1 po q days 2-5 20 06/08/16 ZITHROMAX 250 MG ORAL TABLET 016759 AZITHROMYCIN [place] ctive FLAGYL 500 MG ORAL TABLET 1 tablet by mouth two times daily 2014 FLAGYL 500 MG ORAL TABLET 028153 METRONIDAZOLE Inacti ve AUGMENTIN 875-125 MG ORAL TABLET 1 tab by mouth twice daily with food AUGMENTIN 875-125 MG ORAL TABLET 507333 AMOXICIL ELSA-POT CLAVULANATE Inactive NAPROXEN 500 MG ORAL TABLET one tab PO BID NAPROXEN 500 MG ORAL TABLET 587082 NAPROXEN Inactive PREDNISONE 20 MG ORAL TABLET 2 tabs daily for 3 days, 1 tab daily for 3 days, 1/2 tab daily for 2 days PREDNISONE 20 MG ORAL T ABLET 996159 PREDNISONE Inactive AZITHROMYCIN 250 MG ORAL TABLET 2 po qd x 1 day, then 1 po q d x 4 days AZITHROMYCIN 250 MG ORAL TABLET 857913 AZITHROMY ALLISON Inactive PREDNISONE 20 MG ORAL TABLET 2 tabs daily for 3 days, 1 tab daily for 3 days, 1/2 tab daily for 2 days PREDNISONE 20 MG ORAL T ABLET 265748 PREDNISONE Inactive ZITHROMAX Z-EMIL 250 MG ORAL TABLET 2 today, then 1 daily for 4 d ays ZITHROMAX Z-EMIL 250 MG ORAL TABLET 146846 AZITHROMYCIN Inactive CEFDINIR 300 MG ORAL CAPSULE 1 po BID x 10 days 12/18 CEFDINIR 300 MG ORAL CAPSULE 457629 CEFDINIR Inactive CEFDINIR 300 MG ORAL CAPSULE 1 po BID x 10 days CEFDINIR 300 MG ORAL CAPSULE 20030127 CEFDINIR Inactive PREDNISONE 20 MG ORAL TABLET 2 tabs daily for 3 days, 1 tab daily for 3 days, 1/2 tab daily for 2 days PREDNISONE 20 MG ORAL T ABLET 037570 PREDNISONE Inactive BACTRIM DS 800-160 MG ORAL TABLET 1 tab by mouth twice daily 201 05/02/30 BACTRIM DS 800-160 MG ORAL TABLET 606869 TRIMETHOPRIM-SULFAMETHOXAZOLE Inactive ZITHROMAX Z-EMIL 250 MG ORAL TABLET 2 today, then 1 daily for 4 d ays ZITHROMAX Z-EMIL 250 MG ORAL TABLET 147140 AZITHROMYCIN Inactive TAMIFLU 75 MG ORAL CAPSULE 1 po BID x 5 days 0 TAMIFLU 75 MG ORAL CAPSULE 126084 OSELTAMIVIR PHOSPHATE Inactive CEFDINIR 300 MG ORAL CAPSULE 1 po BID x 10 days 2018/01/03 CEFDINIR 300 MG ORAL CAPSULE 014371 CEFDINIR Inactive ZITHROMAX Z-EMIL 250 MG TABS Take two tablets today and then 1 tablet daily for 4 days ZITHROMAX Z-EMIL 250 MG TABS 749971 AZITHROM YCIN Inactive Advance Directives Directive Description [...] Negative Encounters Code Encounter Date Provider Facility CPT-36720 [id number] Vst-Est Level III 17:21:41 CDT Me lobito Russ [facility]-18526 [id number] Vst-Est Level IV 13:30:22 C NIC Casper MD [facility]-79951 Level 4 Est. Patient 13:05:26 CDT Myrna maldonado MD [facility]-53737 [id number] Vst-Est Level IV 20:50:21 C NIC Casper MD [facility] CPT-32523 Level 3 Est. Patient 11:49:34 INDUSTRIAL CHEMISTRY TEACHER Jessica boyd [facility]-43710 Level 3 Est. Patient 14:55:50 INDUSTRIAL CHEMISTRY TEACHER Jose Zhong MD [facility]-86015 Level 3 Est. Patient 10:21:41 INDUSTRIAL CHEMISTRY TEACHER Arie mcqueen MD [facility]-87476 Level 3 Est. Patient 11:35:15 INDUSTRIAL CHEMISTRY TEACHER Arie mcqueen MD [facility]-41166 Level 3 Est. Patient 15:40:28 CDT Brii escalante [facility]-84291 Level 3 Est. Patient 16:40:36 CDT Arie mcqueen MD [facility] CPT-82024 Level 4 Est. Patient 15:29:22 INDUSTRIAL CHEMISTRY TEACHER Arie mcqueen MD [facility] CPT-23406 Level 3 Est. Patient 15:18:16 INDUSTRIAL CHEMISTRY TEACHER Jono black [facility] CPT-53072 Level 4 Est. Patient 12:08:40 INDUSTRIAL CHEMISTRY TEACHER Brii Are [facility] CPT-17151 Level 3 Est. Patient 09:24:42 CDT Brii Are [facility] CPT-17316 Level 3 Est. Patient 09:12:56 CDT Arie mcqueen MD [facility] CPT-37673 Level 3 Est. Patient 16:40:54 CDT Jose Zhong MD [facility]-42106 Level 2 Est. Patient 13:01:13 CDT Brii Are [facility] CPT-03868 Level 3 Est. Patient 11:55:30 INDUSTRIAL CHEMISTRY TEACHER Jono black [facility] CPT-67230 Level 3 Est. Patient 09:52:36 INDUSTRIAL CHEMISTRY TEACHER Brii Are [facility] CPT-42604 Level 3 Est. Patient 16:25:33 INDUSTRIAL CHEMISTRY TEACHER Rich Rosales MD [facility] CPT-83591 Level 3 Est. Patient 20:33:55 CDT Arie mcqueen MD [facility] CPT-11947 Level 3 Est. Patient 14:18:20 CDT Rich Rosales MD [facility] CPT-88617 Level 4 Est. Patient 09:34:31 CDT Arie mcqueen MD [facility]-83129 Level 3 Est. Patient 09:08:55 INDUSTRIAL CHEMISTRY TEACHER Liliana vincent MD PhD [facility] CPT-32171 Level 3 Est. Patient 16:44:07 INDUSTRIAL CHEMISTRY TEACHER Arie mcqueen MD [facility] CPT-69373 Level 3 Est. Patient 10:44:27 CDT Arie mcqueen MD [facility] CPT-16516 Level 3 Est. Patient 08:55:41 CDT Jose Zhong MD [facility] CPT-26323 Level 3 Est. Patient 18:37:31 CDT Liliana vincent MD PhD [facility] CPT-81950 Level 3 Est. Patient 14:28:23 CDT Abelardo marroquin PA [facility] CPT-45747 Level 3 Est. Patient 15:18:13 INDUSTRIAL CHEMISTRY TEACHER Arie mcqueen MD [facility] CPT-07103 Level 3 Est. Patient 10:11:29 INDUSTRIAL CHEMISTRY TEACHER Arie mcqueen MD [facility] CPT-65186 Level 3 Est. Patient 10:55:57 INDUSTRIAL CHEMISTRY TEACHER Jono black DO [facility] CPT-29270 Level 3 Est. Patient 17:29:05 CDT Arie mcqueen MD [facility] Procedures Code Procedure Name Date Entry Date Standard Desc ription CPT-87064 Ear Wash with irrigation 17:21:41 CDT 07/04 CPT-52256 Nexplanon Removal 15:40:28 CDT CPT-76610 Sono transvag pelvis non OB uterus ovari es cervix - XRAY USE ONLY 08:58:14 INDUSTRIAL CHEMISTRY TEACHER CPT-33383 UA w micro - LAB USE ONLY 16:04:56 INDUSTRIAL CHEMISTRY TEACHER 2015 CPT-89951 Wet Prep/GEN - LAB USE ONLY 16:04:56 INDUSTRIAL CHEMISTRY TEACHER 20 08/10/29 CPT-83983 First Vx - Ix admin via ID I M or jet injects without counseling by physician 16:57:10 CDT CPT-67017 Fluzone Preservative Free Intramuscular Suspension 16:57:10 CDT CPT-J0696 Rocephin 1000 mg (Ceftriaxone) 11:49:23 CDT CPT-J1040 Depo Medrol 80 mg (Methyl Prednisolone A cetate) 11:49:23 CDT CPT-J1100 Decadron 8mg (Dexamethasone) 11:49:23 CDT 2 CPT-34068 Abx/Therapy Injection 11:49:23 CDT CPT-89074 Abx/Therapy Injection 11:49:23 CDT CPT-50848 Abd compl w upright 09:07:26 INDUSTRIAL CHEMISTRY TEACHER CPT-00854 Ear Wash 16:12:47 INDUSTRIAL CHEMISTRY TEACHER CPT-OV Office Visit 11:12:01 CDT CPT-OV Office Visit 15:30:23 CDT CPT-47218 Sono pelvis non OB uterus ovaries cervix 15:50:44 CDT CPT-35611 Hand comp min 3V 16:42:32 CDT CPT-53966 Abd compl w upright 12:17:01 CDT CPT-20215 Nexplanon Placement 15:07:39 INDUSTRIAL CHEMISTRY TEACHER CPT-02038 Removal of IUD 15:07:39 INDUSTRIAL CHEMISTRY TEACHER CPT-14518 TB Tubersol 12:09:32 CDT CPT-84013 TB Tubersol 13:55:43 CDT
--- OUTSIDE RECORDS SUMMARY | 2020-03-03 07:12 | XMS REPORT | Clinical Summary ---
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 Unspecified sinusitis (chronic) Other mixed anxiety 300.00 [...] discharge ICD-623.5 Inactive Liliana lares MD PhD ACUTE FRONTAL SINUSITIS ICD-461.1 Inactive eMghan Estrada MD PhD Urinary frequency ICD-788.41 Inactive Jose Zhong MD Vaginal bleeding ICD-623.8 Inactive Jose Mcwilliams MD Medication List Medication Instructions Start Date Stop Date Generic Name NDC Status Provider Patient Instruction AMOXICILLIN 875 MG ORAL TABLET 1 tab by mouth twice daily AMOXICILLIN [id number] Active Brii Russ APRN Active ALPRAZOLAM 0.25 MG ORAL TABLET 1 tablet by mouth twice a day as needed for stress/anxiety ALPRAZOLAM 27748203231 Active Arie whittington MD Active ESCITALOPRAM OXALATE 10 MG ORAL TABLET take 1 tab po qhs for mod 20 10/04/18 ESCITALOPRAM OXALATE 87194625703 Active Arie Casper MD Active TUSSIONEX PENNKINETIC ER 10-8 MG/5ML ORAL SUSPENSION E XTENDED RELEASE 5ml po q12hr PRN Cough HYDROCOD POLST-CHLORPHEN POLST 5 6463298352 No Longer Active Myrna Roberto MD Active ZITHROMAX Z-EMIL 250 MG TABS Take two tablets today and then 1 tablet daily for 4 days AZITHROMYCIN 04891648378 No Longer Active Flaco Rosales MD Active GUAIFENESIN DM 400-20 MG ORAL TABLET 1 pill by mouth t wice daily, if needed for cough DEXTROMETHORPHAN-GUAIFENESIN 23079234146 No Longer Active Rich Rosales MD Active CEFDINIR 300 MG ORAL CAPSULE 1 po BID x 10 days CEFDINIR 57451254522 No Longer Active Jillina Florina EXCELLENCE LEADER Active CHERATUSSIN AC 100-10 MG/5ML ORAL SYRUP 1 tsp by mouth every 4 hours as needed for cough GUAIFENESIN-CODEINE 01004923584 No Longe r Active Waynellina Ottoniell EXCELLENCE LEADER Active TAMIFLU 75 MG ORAL CAPSULE 1 po BID x 5 days 0 OSELTAMIVIR PHOSPHATE 87675206484 No Longer Active Jose Zhong MD Activ e ZITHROMAX Z-EMIL 250 MG ORAL TABLET 2 today, then 1 daily for 4 d ays AZITHROMYCIN 21722741065 No Longer Active Arie Casper MD Active PROTONIX 40 MG ORAL TABLET DELAYED RELEASE 1 po q a.m. PANTOPRAZOLE SODIUM 45802124432 No Longer Active Arie Casper MD Active BACTRIM DS 800-160 MG ORAL TABLET 1 tab by mouth twice daily 201 05/02/30 TRIMETHOPRIM-SULFAMETHOXAZOLE 86016864724 No Longer Active R [facility] Active NEXPLANON IMPLANT right arm subcutaneously ETONOGESTREL IMPL 54133770484 No Longer Active Brii Russ APRN Active TUSSIONEX PENNKINETIC ER 10-8 MG/5ML ORAL SUSPENSION E XTENDED RELEASE 5ml po q12hr PRN Cough HYDROCOD POLST-CHLORPHEN POLST 5 8098720661 No Longer Active Brii Russ APRN Active CETIRIZINE HCL 10 MG ORAL TABLET 1 po qd PRN Allergies CETIRIZINE HCL 74573039675 No Longer Active Brii Russ APRN Activ e PREDNISONE 20 MG ORAL TABLET 2 tabs daily for 3 days, 1 tab daily for 3 days, 1/2 tab daily for 2 days PREDNISONE 97195684768 No Longer Active Arie Casper MD Active LOMOTIL 2.5-0.025 MG ORAL TABLET 1 tab po four times a day as needed for diarrhea DIPHENOXYLATE-ATROPINE 68195132725 No Lo nger Active Arie Casper MD Active ZOLOFT 50 MG ORAL TABLET 1 tablet by mouth daily 12/08 SERTRALINE HCL 00807097634 No Longer Active Arie Casper MD Ac tive NAPROXEN 500 MG ORAL TABLET Take 1 tab BID NAPR OXEN 37690316372 No Longer Active Arie Casper MD Active CEFDINIR 300 MG ORAL CAPSULE 1 po BID x 10 days CEFDINIR 31681440877 No Longer Active Brii Russ APRN Active PREDNISONE 20 MG ORAL TABLET 1 tablet daily for airway inflammat ion PREDNISONE 71608093804 No Longer Active Brii Russ APRN A ctive CEFDINIR 300 MG ORAL CAPSULE 1 po BID x 10 days CEFDINIR 07862391844 No Longer Active Jono Gagnon DO Active FLONASE 50 MCG/ACT NASAL SUSPENSION 1 spray each nostr il twice daily for allergies and runny nose until gone FLUT ICASONE PROPIONATE 97404517277 No Longer Active Jono Gagnon DO Active ALPRAZOLAM 0.25 MG ORAL TABLET 1 tablet by mouth every 8 hours as needed for stress ALPRAZOLAM 02971979079 No Longer Active Jono Gagnon DO Active ZITHROMAX Z-EMIL 250 MG ORAL TABLET 2 today, then 1 daily for 4 d ays AZITHROMYCIN 68664465983 No Longer Active Arie Casper MD Active PREDNISONE 20 MG ORAL TABLET 2 tabs daily for 3 days, 1 tab daily for 3 days, 1/2 tab daily for 2 days PREDNISONE 64991889360 No Longer Active Brii Russ APRN Active PREDNISONE 20 MG ORAL TABLET 1 tablet twice daily for 2 days, then 1 tablet once daily for 2 days PREDNISONE 70441726134 No Longer Active Brii Russ APRN Active PROMETHAZINE HCL 12.5 MG ORAL TABLET 1 tablet by mouth every 6 hours as needed for nausea/vomiting PROMETHAZINE HCL 45562858723 No L onger Active Jono Gagnon DO Active CITRATE OF MAGNESIA ORAL SOLUTION 1 bottle today for constipatio n MAGNESIUM CITRATE 28077269557 No Longer Active Jono Gagnon DO Active ZOFRAN 4 MG ORAL TABLET 1 TAB PO Q 6 HRS PRN NAUSEA 20 07/10/15 ONDANSETRON HCL 11706676596 No Longer Active Brii Russ APRN Acti ve LOMOTIL 2.5-0.025 MG ORAL TABLET 1 to 2 four times a day as needed for diarrhea DIPHENOXYLATE-ATROPINE 69558898337 No Longer Active January Russ APRN Active AMOXICILLIN 500 MG ORAL TABLET 2 tabs twice a day for 10 days 20 07/09/11 AMOXICILLIN 92891016700 No Longer Active Brii Russ APRN Active CYCLOBENZAPRINE HCL 10 MG ORAL TABLET 1/2 - 1 tablet b y mouth three times daily as needed for muscle spasm/pain CYCLOBENZAPRINE HCL 64565529946 No Longer Active Arie Casper MD Active LOMOTIL 2.5-0.025 MG ORAL TABLET 1 to 2 four times a day as needed for diarrhea DIPHENOXYLATE-ATROPINE 26411981871 No Longer Active Fozia Casper MD Active MACROBID 100 MG ORAL CAPSULE 1 cap by mouth twice daily NITROFURANTOIN MONOHYD MACRO 61344013843 No Longer Active Arie Casper MD Active ZYRTEC ALLERGY 10 MG ORAL CAPSULE 1 po qd CE TIRIZINE HCL 40321941111 No Longer Active Arie Casper MD Active AZITHROMYCIN 250 MG ORAL TABLET 2 po qd x 1 day, then 1 po q d x 4 days AZITHROMYCIN 24500679207 No Longer Active Jillina Fra naomi EXCELLENCE LEADER Active PREDNISONE 20 MG ORAL TABLET 2 tabs daily for 3 days, 1 tab daily for 3 days, 1/2 tab daily for 2 days PREDNISONE 31243864812 No Longer Active Jillina Fradeepl EXCELLENCE LEADER Active PROMETHAZINE HCL 25 MG ORAL TABLET 1 four times a day as nee ded for vomiting PROMETHAZINE HCL 26542118674 No Longer Active Myrna Roberto MD Active BACTRIM DS 800-160 MG ORAL TABLET 1 twice a day 05/30 SULFAMETHOXAZOLE-TRIMETHOPRIM 93263864550 No Longer Active Myrna Roberto MD Active VICKS DAYQUIL SEVERE COLD/FLU TABLET 1 tab every 6 hours prn 201 02/22/17 [id number] TABS 47945067471 No Longer Active Chris Roberto MD Active GUAIFENESIN-CODEINE 100-10 MG/5ML ORAL SYRUP 2 tsp every 6 hours prn GUAIFENESIN-CODEINE 15847918492 No Longer Active Myrna Roberto MD Active NAPROXEN 500 MG ORAL TABLET one tab PO BID NAPR OXEN 54687528586 No Longer Active Myrna Roberto MD Active AUGMENTIN 875-125 MG ORAL TABLET 1 tab by mouth twice daily with food AMOXICILLIN-POT CLAVULANATE 93681441810 No Longer Act zaid Liliana Estrada MD PhD Active AMOXICILLIN 500 MG ORAL CAPSULE 1 tab by mouth 3 times daily 201 02/21/05 AMOXICILLIN 72588096663 No Longer Active Liliana Estrada MD PhD Active TESSALON PERLES 100 MG ORAL CAPSULE 1 tablet by mouth 3 times da cory BENZONATATE 16347123329 No Longer Active Liliana Estrada MD PhD Active FLAGYL 500 MG ORAL TABLET 1 tablet by mouth two times daily 2014 METRONIDAZOLE 48234714444 No Longer Active Nilam Gus Doran tive ZITHROMAX 250 MG ORAL TABLET 2 po today, then 1 po q days 2-5 20 06/08/16 AZITHROMYCIN 12600744977 No Longer Active Arie Casper MD Active VITAMINS 0.8 MG ORAL TABLET take 1 tab po qday [id number]-FA 00860139852 No Longer Active Arie Casper MD Active IBUPROFEN 800 MG ORAL TABLET take one po Q 8 hours 201 02/01/16 IBUPROFEN 01520199841 No Longer Active Arie Casper MD Acti ve [facility] TUSSIN COUGH/COLD CF 5-10-100 MG/5ML ORAL LIQUID 2 teasp oons every 4 hours [id number] 07855642467 No Longer Active Blaine Casper MD Active COMTREX COLD/COUGH DAY/NITE MS 5-2-10-325 MG ORAL 2 caps deja ry 4 hours [id number]-[id number]-APAP 29063373677 No Longer Active Landon Casper MD Active CHLORASEPTIC MAX SORE THROAT 15-10 MG MOUTH/THROAT LOZENGE 1 every 2 hours prn BENZOCAINE-MENTHOL 76492775798 No Longer Active Arie Casper MD Active PREDNISONE 20 MG ORAL TABLET 2 tabs daily for 3 days, 1 tab daily for 3 days, 1/2 tab daily for 2 days PREDNISONE 42370338251 No Longer Active Jose Zhong MD Active AZITHROMYCIN 250 MG ORAL TABLET 2 po qd x 1 day, then 1 po q d x 4 days AZITHROMYCIN 62046331720 No Longer Active Jose Mcwilliams MD Active ZOFRAN ODT 4 MG ORAL TABLET DISINTEGRATING 1 po q6hr PRN Nausea ONDANSETRON 86748520145 No Longer Active Rich Rosales MD Active ZOFRAN 4 MG ORAL TABLET 1 tablet every 4 hours ONDANSETRON HCL 23262955265 No Longer Active Rich Rosales MD Activ e MUCINEX 600 MG ORAL TABLET EXTENDED RELEASE 12 HOUR Ta ke 1-2 tablets every 12 hours GUAIFENESIN 08247800546 No Longer Active Rich Rosales MD Active BACTRIM 400-80 MG ORAL TABLET take one po BID SULFAMETHOXAZOLE-TRIMETHOPRIM 00901748531 No Longer Active Abelardo HERNANDEZ Active AZITHROMYCIN 500 MG ORAL TABLET 1 PO q day x 6 days 20 03/02/23 AZITHROMYCIN 60002575594 No Longer Active iTn HERNANDEZ Activ e ZITHROMAX 250 MG ORAL TABLET 2 po today, then 1 po q days 2-5 20 10/03/08 AZITHROMYCIN 90337424948 No Longer Active Arie Casper MD Active ZITHROMAX 250 MG ORAL TABLET 2 po today, then 1 po q days 2-5 20 09/23/25 AZITHROMYCIN 88631779134 No Longer Active Arie Casper MD Active AMOXICILLIN 500 MG ORAL CAPSULE 1 tab by mouth 3 times daily 201 11/24/09 AMOXICILLIN 01329636449 No Longer Active Arie Casper MD Active BACTRIM DS 800-160 MG ORAL TABLET 1 tab by mouth twice daily 201 11/03/14 TRIMETHOPRIM-SULFAMETHOXAZOLE 77168451457 No Longer Active Fozia Casper MD Active AMOXICILLIN 500 MG ORAL TABLET take 1 tab po TID 08/05 AMOXICILLIN 65344508883 No Longer Active Arie Casper MD Acti [...] 4 hours ZOFRAN 4 MG ORAL TABLET 531229 ONDANSETRON HCL Inactive ZOFRAN ODT 4 MG ORAL TABLET DISINTEGRATING 1 po q6hr PRN Nausea ZOFRAN ODT 4 MG ORAL TABLET DISINTEGRATING 520241 ONDAN SETRON Inactive CHLORASEPTIC MAX SORE THROAT 15-10 MG MOUTH/THROAT LOZENGE 1 every 2 hours prn CHLORASEPTIC MAX SORE THROAT 15-10 MG MOUTH/THROAT LOZENGE BENZOCAINE-MENTHOL Inactive COMTREX COLD/COUGH DAY/NITE MS 5-2-10-325 MG ORAL 2 caps deja ry 4 hours COMTREX COLD/COUGH DAY/NITE MS 5-2-10-325 MG ORA L [id number] Inactive [facility] TUSSIN COUGH/COLD CF 5-10-100 MG/5ML ORAL LIQUID 2 teasp oons every 4 hours [facility] TUSSIN COUGH/COLD CF 5-10-100 MG/5ML ORAL LI QUID [id number] Inactive IBUPROFEN 800 MG ORAL TABLET take one po Q 8 hours 201 02/01/16 IBUPROFEN 800 MG ORAL TABLET IBUPROFEN Inactive VITAMINS 0.8 MG ORAL TABLET take 1 tab po qday VITAMINS 0.8 MG ORAL TABLET [id number] E-FA Inactive TESSALON PERLES 100 MG ORAL CAPSULE 1 tablet by mouth 3 times da cory TESSALON PERLES 100 MG ORAL CAPSULE 19730630 BENZONATATE Inactive AMOXICILLIN 500 MG ORAL CAPSULE 1 tab by mouth 3 times daily 201 02/21/05 AMOXICILLIN 500 MG ORAL CAPSULE 482076 AMOXICILLIN Inactive GUAIFENESIN-CODEINE 100-10 MG/5ML ORAL SYRUP 2 tsp every 6 hours prn GUAIFENESIN-CODEINE 100-10 MG/5ML ORAL SYRUP 966774 GUAIFENESIN-CODEINE Inactive VICKS DAYQUIL SEVERE COLD/FLU TABLET 1 tab every 6 hours prn 201 02/22/17 VICKS DAYQUIL SEVERE COLD/FLU TABLET PHENYLEPHRI HG-PY-DT-APAP TABS Inactive BACTRIM DS 800-160 MG ORAL TABLET 1 twice a day 05/30 BACTRIM DS 800-160 MG ORAL TABLET 034422 SULFAMETHOXAZOLE-TRIMETHOPRIM Inactiv e PROMETHAZINE HCL 25 MG ORAL TABLET 1 four times a day as nee ded for vomiting PROMETHAZINE HCL 25 MG ORAL TABLET 346251 PROMETHAZINE HCL Inactive ZYRTEC ALLERGY 10 MG ORAL CAPSULE 1 po qd ZYRTEC ALLERGY 10 MG ORAL CAPSULE CETIRIZINE HCL Inactive MACROBID 100 MG ORAL CAPSULE 1 cap by mouth twice daily MACROBID 100 MG ORAL CAPSULE 9525193 NITROFURANTOIN MONOHYD MACRO In active LOMOTIL 2.5-0.025 MG ORAL TABLET 1 to 2 four times a day as needed for diarrhea LOMOTIL 2.5-0.025 MG ORAL TABLET 4205965 DIPHENOXYLATE-ATROPINE Inactive CYCLOBENZAPRINE HCL 10 MG ORAL TABLET 1/2 - 1 tablet b y mouth three times daily as needed for muscle spasm/pain CYCLOBEN ZAPRINE HCL 10 MG ORAL TABLET 757417 CYCLOBENZAPRINE HCL Inactive AMOXICILLIN 500 MG ORAL TABLET 2 tabs twice a day for 10 days 20 07/09/11 AMOXICILLIN 500 MG ORAL TABLET 460991 AMOXICILLIN I nactive LOMOTIL 2.5-0.025 MG ORAL TABLET 1 to 2 four times a day as needed for diarrhea LOMOTIL 2.5-0.025 MG ORAL TABLET 4534289 DIPHENOXYLATE-ATROPINE Inactive ZOFRAN 4 MG ORAL TABLET 1 TAB PO Q 6 HRS PRN NAUSEA 07/10/15 ZOFRAN 4 MG ORAL TABLET 528346 ONDANSETRON HCL Inactive CITRATE OF MAGNESIA ORAL SOLUTION 1 bottle today for constipatio n CITRATE OF MAGNESIA ORAL SOLUTION 1059551 MAGNESIUM CITR ATE Inactive PROMETHAZINE HCL 12.5 MG ORAL TABLET 1 tablet by mouth every 6 hours as needed for nausea/vomiting PROMETHAZINE HCL 12.5 MG ORA L TABLET 909687 PROMETHAZINE HCL Inactive PREDNISONE 20 MG ORAL TABLET 1 tablet twice daily for 2 days, then 1 tablet once daily for 2 days PREDNISONE 20 MG ORAL TABLET 737537 PREDNISONE Inactive ALPRAZOLAM 0.25 MG ORAL TABLET 1 tablet by mouth every 8 hours as needed for stress ALPRAZOLAM 0.25 MG ORAL TABLET 983518 ALPRA ZOLAM Inactive FLONASE 50 MCG/ACT NASAL SUSPENSION 1 spray each nostr il twice daily for allergies and runny nose until gone FLON ASE 50 MCG/ACT NASAL SUSPENSION 2208785 FLUTICASONE PROPIONATE Inactive PREDNISONE 20 MG ORAL TABLET 1 tablet daily for airway inflammat ion PREDNISONE 20 MG ORAL TABLET 351830 PREDNISONE Arlen ctive NAPROXEN 500 MG ORAL TABLET Take 1 tab BID NAPROXEN 500 MG ORAL TABLET 581057 NAPROXEN Inactive ZOLOFT 50 MG ORAL TABLET 1 tablet by mouth daily 12/08 ZOLOFT 50 MG ORAL TABLET 981430 SERTRALINE HCL Inactive LOMOTIL 2.5-0.025 MG ORAL TABLET 1 tab po four times a day as needed for diarrhea LOMOTIL 2.5-0.025 MG ORAL TABLET 7865946 DIPHENOXYLATE-ATROPINE Inactive CETIRIZINE HCL 10 MG ORAL TABLET 1 po qd PRN Allergies CETIRIZINE HCL 10 MG ORAL TABLET 8626390 CETIRIZINE HCL Inactiv e TUSSIONEX PENNKINETIC ER 10-8 MG/5ML ORAL SUSPENSION E XTENDED RELEASE 5ml po q12hr PRN Cough TUSSIONEX PENNKINETI C ER 10-8 MG/5ML ORAL SUSPENSION EXTENDED RELEASE HYDROCOD POLST-CHLORPHEN POLST I nactive NEXPLANON IMPLANT right arm subcutaneously NEXPLANON IMPLANT ETONOGESTREL IMPL Inactive PROTONIX 40 MG ORAL TABLET DELAYED RELEASE 1 po q a.m. PROTONIX 40 MG ORAL TABLET DELAYED RELEASE 469665 PANTOPRAZOLE SODI UM Inactive CHERATUSSIN AC 100-10 MG/5ML ORAL SYRUP 1 tsp by mouth every 4 hours as needed for cough CHERATUSSIN AC 100-10 MG/5ML ORAL SYRUP 9 96585 GUAIFENESIN-CODEINE Inactive GUAIFENESIN DM 400-20 MG ORAL [...] TID 08/05 AMOXICILLIN 500 MG ORAL TABLET 312678 AMOXICILLIN Inactive AMOXICILLIN 500 MG ORAL CAPSULE 1 tab by mouth 3 times daily 201 11/24/09 AMOXICILLIN 500 MG ORAL CAPSULE 900074 AMOXICILLIN Inactive ZITHROMAX 250 MG ORAL TABLET 2 po today, then 1 po q days 2-5 20 09/23/25 ZITHROMAX 250 MG ORAL TABLET 545734 AZITHROMYCIN Arlen ctive ZITHROMAX 250 MG ORAL TABLET 2 po today, then 1 po q days 2-5 20 10/03/08 ZITHROMAX 250 MG ORAL TABLET 195003 AZITHROMYCIN [place] ctive AZITHROMYCIN 500 MG ORAL TABLET 1 PO q day x 6 days 03/02/23 AZITHROMYCIN 500 MG ORAL TABLET 7194176 AZITHROMYCIN Inactive BACTRIM 400-80 MG ORAL TABLET take one po BID BACTRIM 400- 80 MG ORAL TABLET 449689 SULFAMETHOXAZOLE-TRIMETHOPRIM Inactive AZITHROMYCIN 250 MG ORAL TABLET 2 po qd x 1 day, then 1 po q d x 4 days AZITHROMYCIN 250 MG ORAL TABLET 689442 AZITHROMY ALLISON Inactive PREDNISONE 20 MG ORAL TABLET 2 tabs daily for 3 days, 1 tab daily for 3 days, 1/2 tab daily for 2 days PREDNISONE 20 MG ORAL T ABLET 891064 PREDNISONE Inactive ZITHROMAX 250 MG ORAL TABLET 2 po today, then 1 po q days 2-5 20 06/08/16 ZITHROMAX 250 MG ORAL TABLET 070823 AZITHROMYCIN [place] ctive FLAGYL 500 MG ORAL TABLET 1 tablet by mouth two times daily 2014 FLAGYL 500 MG ORAL TABLET 123193 METRONIDAZOLE Inacti ve AUGMENTIN 875-125 MG ORAL TABLET 1 tab by mouth twice daily with food AUGMENTIN 875-125 MG ORAL TABLET 686145 AMOXICIL ELSA-POT CLAVULANATE Inactive NAPROXEN 500 MG ORAL TABLET one tab PO BID NAPROXEN 500 MG ORAL TABLET 236838 NAPROXEN Inactive PREDNISONE 20 MG ORAL TABLET 2 tabs daily for 3 days, 1 tab daily for 3 days, 1/2 tab daily for 2 days PREDNISONE 20 MG ORAL T ABLET 048271 PREDNISONE Inactive AZITHROMYCIN 250 MG ORAL TABLET 2 po qd x 1 day, then 1 po q d x 4 days AZITHROMYCIN 250 MG ORAL TABLET 657400 AZITHROMY ALLISON Inactive PREDNISONE 20 MG ORAL TABLET 2 tabs daily for 3 days, 1 tab daily for 3 days, 1/2 tab daily for 2 days PREDNISONE 20 MG ORAL T ABLET 317166 PREDNISONE Inactive ZITHROMAX Z-EMIL 250 MG ORAL TABLET 2 today, then 1 daily for 4 d ays ZITHROMAX Z-EMIL 250 MG ORAL TABLET 373765 AZITHROMYCIN Inactive CEFDINIR 300 MG ORAL CAPSULE [...] days PREDNISONE 20 MG ORAL T ABLET 260002 PREDNISONE Inactive BACTRIM DS 800-160 MG ORAL TABLET 1 tab by mouth twice daily 201 05/02/30 BACTRIM DS 800-160 MG ORAL TABLET 508565 TRIMETHOPRIM-SULFAMETHOXAZOLE Inactive ZITHROMAX Z-EMIL 250 MG ORAL TABLET 2 today, then 1 daily for 4 d ays ZITHROMAX Z-EMIL 250 MG ORAL TABLET 895849 AZITHROMYCIN Inactive TAMIFLU 75 MG ORAL CAPSULE 1 po BID x 5 days 0 TAMIFLU 75 MG ORAL CAPSULE 451312 OSELTAMIVIR PHOSPHATE Inactive CEFDINIR 300 MG ORAL CAPSULE 1 po BID x 10 days 01/03 CEFDINIR 300 MG ORAL CAPSULE 20030127 CEFDINIR Inactive ZITHROMAX Z-EMIL 250 MG TABS Take two tablets today and then 1 tablet daily for 4 days ZITHROMAX Z-EMIL 250 MG TABS 862284 AZITHROM YCIN Inactive Advance Directives Directive Description [...] Report: UADIP W/MICRO, AUTO - Urinal ysis pH, urine, semiquantitative 5.5 5.0-8.5 specific gravity, urine 1.020 1.000-1.030 appearance, urine Clear Clear urine color Yellow Colorless;Lightyellow;St raw;Yellow urobilinogen, urine, semiquantitative (dipstick) 0.2 E .U./dL Normal leukocyte esterase, urine, by dipstick 1+ Negative nitrite, urine, semiquantitative Negative Neg ative glucose, urine, semiquantitative Negative Neg ative ketones, urine, by test strip Negative Negati ve bilirubin, urine Negative Negative Office Visit: Evaluation for infertility - Chemistry human chorionic gonadotropin , urine, qualitative (urine test) Negative Encounters Code Encounter Date Provider Facility CPT-47634 42330-Cop Vst-Est Level III 17:21:41 CDT Me lobito Russ [facility]-02816 73681-Vji Vst-Est Level IV 13:30:22 C NIC Casper MD [facility]-57127 Level 4 Est. Patient 13:05:26 CDT Myrna maldonado MD [facility]-49453 [id number] Vst-Est Level IV 20:50:21 C NIC Casper MD [facility]-43829 Level 3 Est. 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 Patient 14:55:50 [employer] Jose Zhong MD [facility]-94074 Level 3 Est. Patient 10:21:41 INSPECTOR AND AD[employer] Arie mcqueen MD [facility]-05777 Level 3 Est. Patient 11:35:15 INSPECT[employer] Arie mcqueen MD [facility]-58444 Level 3 Est. Patient 15:40:28 CDT Brii escalante [facility] CPT-57920 Level 3 Est. Patient 16:40:36 CDT Arie mcqueen MD [facility]-46490 Level 4 Est. Patient 15:29:22 INSPECTOR AND AD[employer] Arie mcqueen MD [facility] CPT-72247 Level 3 Est. Patient 15:18:16 INSPECTOR AND AD[employer] Jono black [facility] CPT-42542 Level 4 Est. Patient 12:08:40 INSPECTOR [employer] Brii Are ll EXCELLENCE LEADER [facility] CPT-19033 Level 3 Est. Patient 09:24:42 CDT Brii Are ll EXCELLENCE LEADER [facility] CPT-94726 Level 3 Est. Patient 09:12:56 CDT Arie mcqueen MD [facility]-01748 Level 3 Est. Patient 16:40:54 CDT Jose Zhong MD [facility]-20752 Level 2 Est. Patient 13:01:13 CDT Brii Are ll [facility] CPT-14159 Level 3 Est. Patient 11:55:30 INSPECTOR AND AD[employer] Jono black [facility] CPT-54465 Level 3 Est. Patient 09:52:36 INSPECTOR AND [employer] Brii Are ll [facility] CPT-57826 Level 3 Est. Patient 16:25:33 INSPECTOR AND [employer] Rich Rosales MD [facility] CPT-16463 Level 3 Est. Patient 20:33:55 CDT Arie mcqueen MD [facility] CPT-26014 Level 3 Est. Patient 14:18:20 CDT Rich Rosales MD [facility] CPT-12204 Level 4 Est. Patient 09:34:31 CDT Arie mcqueen MD [facility]-74683 Level 3 Est. Patient 09:08:55 INS[employer]OR [employer] Lilinaa vincent MD PhD [facility]-74206 Level 3 Est. Patient 16:44:07 INS[employer] Arie mcqueen MD [facility] CPT-81821 Level 3 Est. Patient 10:44:27 CDT Arie mcqueen MD [facility] CPT-45542 Level 3 Est. Patient 08:55:41 CDT Jose Zhong MD [facility] CPT-81447 Level 3 Est. Patient 18:37:31 CDT Liliana vincent MD PhD [facility] CPT-36535 Level 3 Est. Patient 14:28:23 CDT Abelardo HERNANDEZ [facility] CPT-57553 Level 3 Est. Patient 15:18:13 INS[employer]OR AND [employer] Arie mcqueen MD [facility] CPT-94134 Level 3 Est. Patient 10:11:29 INS[employer]OR AND [employer] Arie mcqueen MD [facility] CPT-77256 Level 3 Est. Patient 10:55:57 INS[employer] Jono black DO [facility] CPT-69291 Level 3 Est. Patient 17:29:05 CDT Arie mcqueen MD [facility] Procedures Code Procedure Name Date Entry Date Standard Desc ription CPT-61778 Ear Wash with irrigation 17:21:41 CDT 07/04 CPT-24554 Nexplanon Removal 15:40:28 CDT CPT-17636 Sono transvag pelvis non OB uterus ovari es cervix - XRAY USE ONLY 08:58:14 [employer] CPT-12289 UA w micro - LAB USE ONLY 16:04:56 [employer] 2015 CPT-73267 Wet Prep/GEN - LAB USE ONLY 16:04:56 [employer] 20 08/10/29 CPT-67846 First Vx - Ix admin via ID I M or jet injects without counseling by physician 16:57:10 CDT CPT-48169 Fluzone Preservative Free Intramuscular Suspension 16:57:10 CDT CPT-J0696 Rocephin 1000 mg (Ceftriaxone) 11:49:23 CDT CPT-J1040 Depo Medrol 80 mg (Methyl Prednisolone A cetate) 11:49:23 CDT CPT-J1100 Decadron 8mg (Dexamethasone) 11:49:23 CDT 2 CPT-40845 Abx/Therapy Injection 11:49:23 CDT CPT-03933 Abx/Therapy Injection 11:49:23 CDT CPT-20106 Abd compl w upright 09:07:26 [employer] CPT-88289 Ear Wash 16:12:47 [employer] CPT-OV Office Visit 11:12:01 CDT CPT-OV Office Visit 15:30:23 CDT CPT-92966 Sono pelvis non OB uterus ovaries cervix 15:50:44 CDT CPT-41121 Hand comp min 3V 16:42:32 CDT CPT-05233 Abd compl w upright 12:17:01 CDT CPT-03722 Nexplanon Placement 15:07:39 [employer] CPT-40842 Removal of IUD 15:07:39 [employer] CPT-03542 TB Tubersol 12:09:32 CDT CPT-84866 TB Tubersol 13:55:43 CDT
--- OUTSIDE RECORDS SUMMARY | 2020-03-03 07:12 | XMS REPORT | Clinical Summary ---
Author Author Admin, Diamante Marcelo Organization [employer] Address Unknown Phone Unavailable Allergies, Adverse Reactions, [...] Roberto MD Constipation, unspecified Bronchitis 490 Active Jsesica Heaton APRN Bronchitis, not specified as acute [...] respiratory manifestations Sinusitis 473.9 Active Jessica Heaton [place] [place] Unspecified sinusitis (chronic) Other mixed anxiety 300.00 [...] 1 tab by mouth twice daily AMOXICILLIN 89427687444 Active Brii Russ APRN Active ALPRAZOLAM 0.25 MG ORAL TABLET 1 tablet by mouth twice a day as needed for stress/anxiety ALPRAZOLAM 49588110634 Active Arie whittington MD Active ESCITALOPRAM OXALATE 10 MG ORAL TABLET take 1 tab po qhs for mod 20 10/04/18 ESCITALOPRAM OXALATE 48645884951 Active Arei Casper MD Active TUSSIONEX PENNKINETIC ER 10-8 MG/5ML ORAL SUSPENSION E XTENDED RELEASE 5ml po q12hr PRN Cough HYDROCOD POLST-CHLORPHEN POLST 5 1345631510 No Longer Active Myrna Roberto MD Active ZITHROMAX Z-EMIL 250 MG TABS Take two tablets today and then 1 tablet daily for 4 days AZITHROMYCIN 97691070156 No Longer Active Flaco Rosales MD Active GUAIFENESIN DM 400-20 MG ORAL TABLET 1 pill by mouth t wice daily, if needed for cough DEXTROMETHORPHAN-GUAIFENESIN 06452064355 No Longer Active Rich Rosales MD Active CEFDINIR 300 MG ORAL CAPSULE 1 po BID x 10 days CEFDINIR 74641567622 No Longer Active Jillina Florina [place] Active CHERATUSSIN AC 100-10 MG/5ML ORAL SYRUP 1 tsp by mouth every 4 hours as needed for cough GUAIFENESIN-CODEINE 63842423908 No Longe r Active Waynellina Ottoniell [place] Active TAMIFLU 75 MG ORAL CAPSULE 1 po BID x 5 days 0 OSELTAMIVIR PHOSPHATE 93753729967 No Longer Active Jose Zhong MD Activ e ZITHROMAX Z-EMIL 250 MG ORAL TABLET 2 today, then 1 daily for 4 d ays AZITHROMYCIN 04491652298 No Longer Active Arie Casper MD Active PROTONIX 40 MG ORAL TABLET DELAYED RELEASE 1 po q a.m. PANTOPRAZOLE SODIUM 63334541220 No Longer Active Arie Casper MD Active BACTRIM DS 800-160 MG ORAL TABLET 1 tab by mouth twice daily 201 05/02/30 TRIMETHOPRIM-SULFAMETHOXAZOLE 67805526530 No Longer Active R [facility] Active NEXPLANON IMPLANT right arm subcutaneously ETONOGESTREL IMPL 52890854105 No Longer Active Brii Russ APRN Active TUSSIONEX PENNKINETIC ER 10-8 MG/5ML ORAL SUSPENSION E XTENDED RELEASE 5ml po q12hr PRN Cough HYDROCOD POLST-CHLORPHEN POLST 5 5403558874 No Longer Active Brii Russ APRN Active CETIRIZINE HCL 10 MG ORAL TABLET 1 po qd PRN Allergies CETIRIZINE HCL 65466262007 No Longer Active Brii Russ APRN Activ e PREDNISONE 20 MG ORAL TABLET 2 tabs daily for 3 days, 1 tab daily for 3 days, 1/2 tab daily for 2 days PREDNISONE 94121790419 No Longer Active Arie Casper MD Active LOMOTIL 2.5-0.025 MG ORAL TABLET 1 tab po four times a day as needed for diarrhea DIPHENOXYLATE-ATROPINE 66983346600 No Lo nger Active Arie Casper MD Active ZOLOFT 50 MG ORAL TABLET 1 tablet by mouth daily 12/08 SERTRALINE HCL 94936046084 No Longer Active Arie Casper MD Ac tive NAPROXEN 500 MG ORAL TABLET Take 1 tab BID NAPR OXEN 53829233649 No Longer Active Arie Casper MD Active CEFDINIR 300 MG ORAL CAPSULE 1 po BID x 10 days CEFDINIR 91116679207 No Longer Active Brii Russ APRN Active PREDNISONE 20 MG ORAL TABLET 1 tablet daily for airway inflammat ion PREDNISONE 10116123931 No Longer Active Brii Russ APRN A ctive CEFDINIR 300 MG ORAL CAPSULE 1 po BID x 10 days CEFDINIR 27786063379 No Longer Active Jono Gagnon DO Active FLONASE 50 MCG/ACT NASAL SUSPENSION 1 spray each nostr il twice daily for allergies and runny nose until gone FLUT ICASONE PROPIONATE 66762176954 No Longer Active Jono Gagnon DO Active ALPRAZOLAM 0.25 MG ORAL TABLET 1 tablet by mouth every 8 hours as needed for stress ALPRAZOLAM 40506143330 No Longer Active Jono Gagnon DO Active ZITHROMAX Z-EMIL 250 MG ORAL TABLET 2 today, then 1 daily for 4 d ays AZITHROMYCIN 41537237662 No Longer Active Arie Casper MD Active PREDNISONE 20 MG ORAL TABLET 2 tabs daily for 3 days, 1 tab daily for 3 days, 1/2 tab daily for 2 days PREDNISONE 82445272423 No Longer Active Brii Russ APRN Active PREDNISONE 20 MG ORAL TABLET 1 tablet twice daily for 2 days, then 1 tablet once daily for 2 days PREDNISONE 23340247324 No Longer Active Brii Russ APRN Active PROMETHAZINE HCL 12.5 MG ORAL TABLET 1 tablet by mouth every 6 hours as needed for nausea/vomiting PROMETHAZINE HCL 15564658342 No L onger Active Jono Gagnon DO Active CITRATE OF MAGNESIA ORAL SOLUTION 1 bottle today for constipatio n MAGNESIUM CITRATE 96630625457 No Longer Active Jono Gagnon DO Active ZOFRAN 4 MG ORAL TABLET 1 TAB PO Q 6 HRS PRN NAUSEA 20 07/10/15 ONDANSETRON HCL 29783803884 No Longer Active Brii Russ APRN Acti ve LOMOTIL 2.5-0.025 MG ORAL TABLET 1 to 2 four times a day as needed for diarrhea DIPHENOXYLATE-ATROPINE 70211999543 No Longer Active January Russ APRN Active AMOXICILLIN 500 MG ORAL TABLET 2 tabs twice a day for 10 days 20 07/09/11 AMOXICILLIN 10684625762 No Longer Active Brii Russ APRN Active CYCLOBENZAPRINE HCL 10 MG ORAL TABLET 1/2 - 1 tablet b y mouth three times daily as needed for muscle spasm/pain CYCLOBENZAPRINE HCL 86317465169 No Longer Active Arie Casper MD Active LOMOTIL 2.5-0.025 MG ORAL TABLET 1 to 2 four times a day as needed for diarrhea DIPHENOXYLATE-ATROPINE 90084118640 No Longer Active Fozia Casper MD Active MACROBID 100 MG ORAL CAPSULE 1 cap by mouth twice daily NITROFURANTOIN MONOHYD MACRO 51657487331 No Longer Active Arie Casper MD Active ZYRTEC ALLERGY 10 MG ORAL CAPSULE 1 po qd CE TIRIZINE HCL 83201938891 No Longer Active Arie Casper MD Active AZITHROMYCIN 250 MG ORAL TABLET 2 po qd x 1 day, then 1 po q d x 4 days AZITHROMYCIN 02106677547 No Longer Active Jillina Fra naomi [place] Active PREDNISONE 20 MG ORAL TABLET 2 tabs daily for 3 days, 1 tab daily for 3 days, 1/2 tab daily for 2 days PREDNISONE 66556765803 No Longer Active Jillina Fradeepl [place] Active PROMETHAZINE HCL 25 MG ORAL TABLET 1 four times a day as nee ded for vomiting PROMETHAZINE HCL 80864530345 No Longer Active Myrna Roberto MD Active BACTRIM DS 800-160 MG ORAL TABLET 1 twice a day 05/30 SULFAMETHOXAZOLE-TRIMETHOPRIM 15523078603 No Longer Active Myrna Roberto MD Active VICKS DAYQUIL SEVERE COLD/FLU TABLET 1 tab every 6 hours prn 201 02/22/17 [id number] TABS 03778859035 No Longer Active Chris Roberto MD Active GUAIFENESIN-CODEINE 100-10 MG/5ML ORAL SYRUP 2 tsp every 6 hours prn GUAIFENESIN-CODEINE 19798070287 No Longer Active Myrna Roberto MD Active NAPROXEN 500 MG ORAL TABLET one tab PO BID NAPR OXEN 19749619402 No Longer Active Myrna Roberto MD Active AUGMENTIN 875-125 MG ORAL TABLET 1 tab by mouth twice daily with food AMOXICILLIN-POT CLAVULANATE 74356171827 No Longer Act zaid Liliana Estrada MD PhD Active AMOXICILLIN 500 MG ORAL CAPSULE 1 tab by mouth 3 times daily 201 02/21/05 AMOXICILLIN 12164366143 No Longer Active Liliana Estrada MD PhD Active TESSALON PERLES 100 MG ORAL CAPSULE 1 tablet by mouth 3 times da cory BENZONATATE 41004161686 No Longer Active Liliana Estrada MD PhD Active FLAGYL 500 MG ORAL TABLET 1 tablet by mouth two times daily 2014 METRONIDAZOLE 59839536629 No Longer Active Nilam Gus Doran tive ZITHROMAX 250 MG ORAL TABLET 2 po today, then 1 po q days 2-5 20 06/08/16 AZITHROMYCIN 23863606950 No Longer Active Arie Casper MD Active VITAMINS 0.8 MG ORAL TABLET take 1 tab po qday [id number] 44555112680 No Longer Active Arie Casper MD Active IBUPROFEN 800 MG ORAL TABLET take one po Q 8 hours 201 02/01/16 IBUPROFEN 23212297735 No Longer Active Arie Casper MD Acti ve [facility] TUSSIN COUGH/COLD CF 5-10-100 MG/5ML ORAL LIQUID 2 teasp oons every 4 hours [id number] 75929889471 No Longer Active Blaine Casper MD Active COMTREX COLD/COUGH DAY/NITE MS 5-2-10-325 MG ORAL 2 caps deja ry 4 hours [id number] 03601563263 No Longer Active Landon Casper MD Active CHLORASEPTIC MAX SORE THROAT 15-10 MG MOUTH/THROAT LOZENGE 1 every 2 hours prn BENZOCAINE-MENTHOL 20323356905 No Longer Active Arie Casper MD Active PREDNISONE 20 MG ORAL TABLET 2 tabs daily for 3 days, 1 tab daily for 3 days, 1/2 tab daily for 2 days PREDNISONE 68345465919 No Longer Active Jose Zhong MD Active AZITHROMYCIN 250 MG ORAL TABLET 2 po qd x 1 day, then 1 po q d x 4 days AZITHROMYCIN 62232946654 No Longer Active Jose Mcwilliams MD Active ZOFRAN ODT 4 MG ORAL TABLET DISINTEGRATING 1 po q6hr PRN Nausea ONDANSETRON 63498810575 No Longer Active Rich Rosales MD Active ZOFRAN 4 MG ORAL TABLET 1 tablet every 4 hours ONDANSETRON HCL 18605173133 No Longer Active Rich Rosales MD Activ e MUCINEX 600 MG ORAL TABLET EXTENDED RELEASE 12 HOUR Ta ke 1-2 tablets every 12 hours GUAIFENESIN 54543756608 No Longer Active Rich Rosales MD Active BACTRIM 400-80 MG ORAL TABLET take one po BID SULFAMETHOXAZOLE-TRIMETHOPRIM 69249336564 No Longer Active Abelardo HERNANDEZ Active AZITHROMYCIN 500 MG ORAL TABLET 1 PO q day x 6 days 20 03/02/23 AZITHROMYCIN 51252164779 No Longer Active Tin HERNANDEZ Activ e ZITHROMAX 250 MG ORAL TABLET 2 po today, then 1 po q days 2-5 20 10/03/08 AZITHROMYCIN 55430895082 No Longer Active Arie Casper MD Active ZITHROMAX 250 MG ORAL TABLET 2 po today, then 1 po q days 2-5 20 09/23/25 AZITHROMYCIN 54203008916 No Longer Active Arie Casper MD Active AMOXICILLIN 500 MG ORAL CAPSULE 1 tab by mouth 3 times daily 201 11/24/09 AMOXICILLIN 02144044347 No Longer Active Arie Casper MD Active BACTRIM DS 800-160 MG ORAL TABLET 1 tab by mouth twice daily 201 11/03/14 TRIMETHOPRIM-SULFAMETHOXAZOLE 31552303844 No Longer Active Fozia Casper MD Active AMOXICILLIN 500 MG ORAL TABLET take 1 tab po TID 08/05 AMOXICILLIN 40131012814 No Longer Active Arie Casper MD Acti [...] 4 hours ZOFRAN 4 MG ORAL TABLET 661083 ONDANSETRON HCL Inactive ZOFRAN ODT 4 MG ORAL TABLET DISINTEGRATING 1 po q6hr PRN Nausea ZOFRAN ODT 4 MG ORAL TABLET DISINTEGRATING 910695 ONDAN SETRON Inactive CHLORASEPTIC MAX SORE THROAT 15-10 MG MOUTH/THROAT LOZENGE 1 every 2 hours prn CHLORASEPTIC MAX SORE THROAT 15-10 MG MOUTH/THROAT LOZENGE BENZOCAINE-MENTHOL Inactive COMTREX COLD/COUGH DAY/NITE MS 5-2-10-325 MG ORAL 2 caps deja ry 4 hours COMTREX COLD/COUGH DAY/NITE MS 5-2-10-325 MG ORA L [id number] Inactive [facility] TUSSIN COUGH/COLD CF 5-10-100 MG/5ML ORAL LIQUID 2 teasp oons every 4 hours [facility] TUSSIN COUGH/COLD CF 5-10-100 MG/5ML ORAL LI QUID [id number] Inactive IBUPROFEN 800 MG ORAL TABLET take one po Q 8 hours 201 02/01/16 IBUPROFEN 800 MG ORAL TABLET IBUPROFEN Inactive VITAMINS 0.8 MG ORAL TABLET take 1 tab po qday VITAMINS 0.8 MG ORAL TABLET [id number] E-FA Inactive TESSALON PERLES 100 MG ORAL CAPSULE 1 tablet by mouth 3 times da cory TESSALON PERLES 100 MG ORAL CAPSULE 19730630 BENZONATATE Inactive AMOXICILLIN 500 MG ORAL CAPSULE 1 tab by mouth 3 times daily 201 02/21/05 AMOXICILLIN 500 MG ORAL CAPSULE 795298 AMOXICILLIN Inactive GUAIFENESIN-CODEINE 100-10 MG/5ML ORAL SYRUP 2 tsp every 6 hours prn GUAIFENESIN-CODEINE 100-10 MG/5ML ORAL SYRUP 894134 GUAIFENESIN-CODEINE Inactive VICKS DAYQUIL SEVERE COLD/FLU TABLET 1 tab every 6 hours prn 201 02/22/17 VICKS DAYQUIL SEVERE COLD/FLU TABLET PHENYLEPHRI [id number] TABS Inactive BACTRIM DS 800-160 MG ORAL TABLET 1 twice a day 05/30 BACTRIM DS 800-160 MG ORAL TABLET 427412 SULFAMETHOXAZOLE-TRIMETHOPRIM Inactiv e PROMETHAZINE HCL 25 MG ORAL TABLET 1 four times a day as nee ded for vomiting PROMETHAZINE HCL 25 MG ORAL TABLET 497299 PROMETHAZINE HCL Inactive ZYRTEC ALLERGY 10 MG ORAL CAPSULE 1 po qd ZYRTEC ALLERGY 10 MG ORAL CAPSULE CETIRIZINE HCL Inactive MACROBID 100 MG ORAL CAPSULE 1 cap by mouth twice daily MACROBID 100 MG ORAL CAPSULE 2955094 NITROFURANTOIN MONOHYD MACRO In active LOMOTIL 2.5-0.025 MG ORAL TABLET 1 to 2 four times a day as needed for diarrhea LOMOTIL 2.5-0.025 MG ORAL TABLET 5616924 DIPHENOXYLATE-ATROPINE Inactive CYCLOBENZAPRINE HCL 10 MG ORAL TABLET 1/2 - 1 tablet b y mouth three times daily as needed for muscle spasm/pain CYCLOBEN ZAPRINE HCL 10 MG ORAL TABLET 960463 CYCLOBENZAPRINE HCL Inactive AMOXICILLIN 500 MG ORAL TABLET 2 tabs twice a day for 10 days 20 07/09/11 AMOXICILLIN 500 MG ORAL TABLET 443250 AMOXICILLIN I nactive LOMOTIL 2.5-0.025 MG ORAL TABLET 1 to 2 four times a day as needed for diarrhea LOMOTIL 2.5-0.025 MG ORAL TABLET 7131518 DIPHENOXYLATE-ATROPINE Inactive ZOFRAN 4 MG ORAL TABLET 1 TAB PO Q 6 HRS PRN NAUSEA 07/10/15 ZOFRAN 4 MG ORAL TABLET 607556 ONDANSETRON HCL Inactive CITRATE OF MAGNESIA ORAL SOLUTION 1 bottle today for constipatio n CITRATE OF MAGNESIA ORAL SOLUTION 5496050 MAGNESIUM CITR ATE Inactive PROMETHAZINE HCL 12.5 MG ORAL TABLET 1 tablet by mouth every 6 hours as needed for nausea/vomiting PROMETHAZINE HCL 12.5 MG ORA L TABLET 089114 PROMETHAZINE HCL Inactive PREDNISONE 20 MG ORAL TABLET 1 tablet twice daily for 2 days, then 1 tablet once daily for 2 days PREDNISONE 20 MG ORAL TABLET 787497 PREDNISONE Inactive ALPRAZOLAM 0.25 MG ORAL TABLET 1 tablet by mouth every 8 hours as needed for stress ALPRAZOLAM 0.25 MG ORAL TABLET 008537 ALPRA ZOLAM Inactive FLONASE 50 MCG/ACT NASAL SUSPENSION 1 spray each nostr il twice daily for allergies and runny nose until gone FLON ASE 50 MCG/ACT NASAL SUSPENSION 9534275 FLUTICASONE PROPIONATE Inactive PREDNISONE 20 MG ORAL TABLET 1 tablet daily for airway inflammat ion PREDNISONE 20 MG ORAL TABLET 549328 PREDNISONE [place] ctive NAPROXEN 500 MG ORAL TABLET Take 1 tab BID NAPROXEN 500 MG ORAL TABLET 291358 NAPROXEN Inactive ZOLOFT 50 MG ORAL TABLET 1 tablet by mouth daily 12/08 ZOLOFT 50 MG ORAL TABLET 366450 SERTRALINE HCL Inactive LOMOTIL 2.5-0.025 MG ORAL TABLET 1 tab po four times a day as needed for diarrhea LOMOTIL 2.5-0.025 MG ORAL TABLET 5459528 DIPHENOXYLATE-ATROPINE Inactive CETIRIZINE HCL 10 MG ORAL TABLET 1 po qd PRN Allergies CETIRIZINE HCL 10 MG ORAL TABLET 0171437 CETIRIZINE HCL Inactiv e TUSSIONEX PENNKINETIC ER 10-8 MG/5ML ORAL SUSPENSION E XTENDED RELEASE 5ml po q12hr PRN Cough TUSSIONEX PENNKINETI C ER 10-8 MG/5ML ORAL SUSPENSION EXTENDED RELEASE HYDROCOD POLST-CHLORPHEN POLST I nactive NEXPLANON IMPLANT right arm subcutaneously NEXPLANON IMPLANT ETONOGESTREL IMPL Inactive PROTONIX 40 MG ORAL TABLET DELAYED RELEASE 1 po q a.m. PROTONIX 40 MG ORAL TABLET DELAYED RELEASE 692178 PANTOPRAZOLE SODI UM Inactive CHERATUSSIN AC 100-10 MG/5ML ORAL SYRUP 1 tsp by mouth every 4 hours as needed for cough CHERATUSSIN AC 100-10 MG/5ML ORAL SYRUP 9 59421 GUAIFENESIN-CODEINE Inactive GUAIFENESIN DM 400-20 MG ORAL [...] TID 08/05 AMOXICILLIN 500 MG ORAL TABLET 289398 AMOXICILLIN Inactive AMOXICILLIN 500 MG ORAL CAPSULE 1 tab by mouth 3 times daily 201 11/24/09 AMOXICILLIN 500 MG ORAL CAPSULE 583389 AMOXICILLIN Inactive ZITHROMAX 250 MG ORAL TABLET 2 po today, then 1 po q days 2-5 20 09/23/25 ZITHROMAX 250 MG ORAL TABLET 752827 AZITHROMYCIN [place] ctive ZITHROMAX 250 MG ORAL TABLET 2 po today, then 1 po q days 2-5 20 10/03/08 ZITHROMAX 250 MG ORAL TABLET 288494 AZITHROMYCIN [place] ctive AZITHROMYCIN 500 MG ORAL TABLET 1 PO q day x 6 days 03/02/23 AZITHROMYCIN 500 MG ORAL TABLET 8696798 AZITHROMYCIN Inactive BACTRIM 400-80 MG ORAL TABLET take one po BID BACTRIM 400- 80 MG ORAL TABLET 390989 SULFAMETHOXAZOLE-TRIMETHOPRIM Inactive AZITHROMYCIN 250 MG ORAL TABLET 2 po qd x 1 day, then 1 po q d x 4 days AZITHROMYCIN 250 MG ORAL TABLET 934437 AZITHROMY ALLISON Inactive PREDNISONE 20 MG ORAL TABLET 2 tabs daily for 3 days, 1 tab daily for 3 days, 1/2 tab daily for 2 days PREDNISONE 20 MG ORAL T ABLET 461785 PREDNISONE Inactive ZITHROMAX 250 MG ORAL TABLET 2 po today, then 1 po q days 2-5 20 06/08/16 ZITHROMAX 250 MG ORAL TABLET 462586 AZITHROMYCIN [place] ctive FLAGYL 500 MG ORAL TABLET 1 tablet by mouth two times daily 2014 FLAGYL 500 MG ORAL TABLET 392112 METRONIDAZOLE Inacti ve AUGMENTIN 875-125 MG ORAL TABLET 1 tab by mouth twice daily with food AUGMENTIN 875-125 MG ORAL TABLET 950968 AMOXICIL ELSA-POT CLAVULANATE Inactive NAPROXEN 500 MG ORAL TABLET one tab PO BID NAPROXEN 500 MG ORAL TABLET 744630 NAPROXEN Inactive PREDNISONE 20 MG ORAL TABLET 2 tabs daily for 3 days, 1 tab daily for 3 days, 1/2 tab daily for 2 days PREDNISONE 20 MG ORAL T ABLET 989092 PREDNISONE Inactive AZITHROMYCIN 250 MG ORAL TABLET 2 po qd x 1 day, then 1 po q d x 4 days AZITHROMYCIN 250 MG ORAL TABLET 633687 AZITHROMY ALLISON Inactive PREDNISONE 20 MG ORAL TABLET 2 tabs daily for 3 days, 1 tab daily for 3 days, 1/2 tab daily for 2 days PREDNISONE 20 MG ORAL T ABLET 573380 PREDNISONE Inactive ZITHROMAX Z-EMIL 250 MG ORAL TABLET 2 today, then 1 daily for 4 d ays ZITHROMAX Z-EMIL 250 MG ORAL TABLET 586682 AZITHROMYCIN Inactive CEFDINIR 300 MG ORAL CAPSULE [...] days PREDNISONE 20 MG ORAL T ABLET 661065 PREDNISONE Inactive BACTRIM DS 800-160 MG ORAL TABLET 1 tab by mouth twice daily 201 05/02/30 BACTRIM DS 800-160 MG ORAL TABLET 244679 TRIMETHOPRIM-SULFAMETHOXAZOLE Inactive ZITHROMAX Z-EMIL 250 MG ORAL TABLET 2 today, then 1 daily for 4 d ays ZITHROMAX Z-EMIL 250 MG ORAL TABLET 770154 AZITHROMYCIN Inactive TAMIFLU 75 MG ORAL CAPSULE 1 po BID x 5 days 0 TAMIFLU 75 MG ORAL CAPSULE 817624 OSELTAMIVIR PHOSPHATE Inactive CEFDINIR 300 MG ORAL CAPSULE 1 po BID x 10 days 01/03 CEFDINIR 300 MG ORAL CAPSULE 20030127 CEFDINIR Inactive ZITHROMAX Z-EMIL 250 MG TABS Take two tablets today and then 1 tablet daily for 4 days ZITHROMAX Z-EMIL 250 MG TABS 100709 AZITHROM YCIN Inactive Advance Directives Directive Description [...] Negative Encounters Code Encounter Date Provider Facility CPT-12490 [id number] Vst-Est Level III 17:21:41 CDT Me lobito Russ [facility]-71421 [id number] Vst-Est Level IV 13:30:22 C NIC Casper MD [facility]-36720 Level 4 Est. Patient 13:05:26 CDT Myrna maldonado MD [facility]-22770 [id number] Vst-Est Level IV 20:50:21 C NIC Casper MD [facility]-54634 Level 3 Est. Patient 11:49:34 STUDIO TECHNICIAN VIDEO OPERATOR Jessica boyd [facility] CPT-08495 Level 3 Est. Patient 14:55:50 STUDIO TECHNICIAN VIDEO OPERATOR Jose Zhong MD [facility]-55427 Level 3 Est. Patient 10:21:41 STUDIO TECHNICIAN VIDEO OPERATOR Arie mcqueen MD [facility]-80476 Level 3 Est. Patient 11:35:15 STUDIO TECHNICIAN VIDEO OPERATOR Arie mcqueen MD [facility]-25285 Level 3 Est. Patient 15:40:28 CDT Brii escalante [facility] CPT-44375 Level 3 Est. Patient 16:40:36 CDT Arie mcqueen MD [facility]-84765 Level 4 Est. Patient 15:29:22 STUDIO TECHNICIAN VIDEO OPERATOR Arie mcqueen MD [facility] CPT-54517 Level 3 Est. Patient 15:18:16 STUDIO TECHNICIAN VIDEO OPERATOR Jono black [facility] CPT-17029 Level 4 Est. Patient 12:08:40 STUDIO TECHNICIAN VIDEO OPERATOR Brii Are ll [employer] CPT-95358 Level 3 Est. Patient 09:24:42 CDT Brii Are ll [employer] CPT-65939 Level 3 Est. Patient 09:12:56 CDT Arie mcqueen MD [facility]-66400 Level 3 Est. Patient 16:40:54 CDT Jose Zhong MD [facility]-57398 Level 2 Est. Patient 13:01:13 CDT Brii Are ll [facility] CPT-72244 Level 3 Est. Patient 11:55:30 STUDIO TECHNICIAN VIDEO OPERATOR Jono black [facility] CPT-13939 Level 3 Est. Patient 09:52:36 STUDIO TECHNICIAN VIDEO OPERATOR Brii Are ll [facility] CPT-11653 Level 3 Est. Patient 16:25:33 STUDIO TECHNICIAN VIDEO OPERATOR Rich Rosales MD [facility] CPT-77783 Level 3 Est. Patient 20:33:55 CDT Arie mcqueen MD [facility] CPT-21304 Level 3 Est. Patient 14:18:20 CDT Rich Rosales MD [facility] CPT-78116 Level 4 Est. Patient 09:34:31 CDT Arie mcqueen MD [facility]-61372 Level 3 Est. Patient 09:08:55 STUDIO TECHNICIAN VIDEO OPERATOR Liliana vincent MD PhD [facility]-09228 Level 3 Est. Patient 16:44:07 STUDIO TECHNICIAN VIDEO OPERATOR Arie mcqueen MD [facility] CPT-45359 Level 3 Est. Patient 10:44:27 CDT Arie mcqueen MD [facility] CPT-63903 Level 3 Est. Patient 08:55:41 CDT Jose Zhong MD [facility] CPT-44453 Level 3 Est. Patient 18:37:31 CDT Liliana vincent MD PhD [facility] CPT-00116 Level 3 Est. Patient 14:28:23 CDT Abelardo HERNANDEZ [facility] CPT-84200 Level 3 Est. Patient 15:18:13 STUDIO TECHNICIAN VIDEO OPERATOR Arie mcqueen MD [facility] CPT-50904 Level 3 Est. Patient 10:11:29 STUDIO TECHNICIAN VIDEO OPERATOR Arie mcqueen MD [facility] CPT-69473 Level 3 Est. Patient 10:55:57 STUDIO TECHNICIAN VIDEO OPERATOR Jono black DO [facility] CPT-85710 Level 3 Est. Patient 17:29:05 CDT Arie mcqueen MD [facility] Procedures Code Procedure Name Date Entry Date Standard Desc ription CPT-24851 Ear Wash with irrigation 17:21:41 CDT 07/04 CPT-59086 Nexplanon Removal 15:40:28 CDT CPT-42175 Sono transvag pelvis non OB uterus ovari es cervix - XRAY USE ONLY 08:58:14 STUDIO TECHNICIAN VIDEO OPERATOR CPT-16772 UA w micro - LAB USE ONLY 16:04:56 STUDIO TECHNICIAN VIDEO OPERATOR 2015 CPT-06774 Wet Prep/GEN - LAB USE ONLY 16:04:56 STUDIO TECHNICIAN VIDEO OPERATOR 20 08/10/29 CPT-09972 First Vx - Ix admin via ID I M or jet injects without counseling by physician 16:57:10 CDT CPT-15716 Fluzone Preservative Free Intramuscular Suspension 16:57:10 CDT CPT-J0696 Rocephin 1000 mg (Ceftriaxone) 11:49:23 CDT CPT-J1040 Depo Medrol 80 mg (Methyl Prednisolone A cetate) 11:49:23 CDT CPT-J1100 Decadron 8mg (Dexamethasone) 11:49:23 CDT 2 CPT-54504 Abx/Therapy Injection 11:49:23 CDT CPT-74868 Abx/Therapy Injection 11:49:23 CDT CPT-48789 Abd compl w upright 09:07:26 STUDIO TECHNICIAN VIDEO OPERATOR CPT-30418 Ear Wash 16:12:47 STUDIO TECHNICIAN VIDEO OPERATOR CPT-OV Office Visit 11:12:01 CDT CPT-OV Office Visit 15:30:23 CDT CPT-48644 Sono pelvis non OB uterus ovaries cervix 15:50:44 CDT CPT-28978 Hand comp min 3V 16:42:32 CDT CPT-53188 Abd compl w upright 12:17:01 CDT CPT-25430 Nexplanon Placement 15:07:39 STUDIO TECHNICIAN VIDEO OPERATOR CPT-03765 Removal of IUD 15:07:39 STUDIO TECHNICIAN VIDEO OPERATOR CPT-47035 TB Tubersol 12:09:32 CDT CPT-14271 TB Tubersol 13:55:43 CDT
--- OUTSIDE RECORDS SUMMARY | 2020-03-03 07:13 | XMS REPORT | Clinical Summary ---
Author Author Admin, Diamante Marcelo Organization [employer] Address Unknown Phone Unavailable Allergies, Adverse Reactions, [...] implantable subdermal contraceptiv e Active Brii Russ [employer] Vaginal bleeding 623.8 Active Arie Casper MD Other specified noninflammatory disorders of vagina Influenza like illness 487.1 Active Jose Mcwilliams MD Influenza with other respiratory manifestations Sinusitis 473.9 Active Jessica Heaton [employer] Unspecified sinusitis (chronic) Other mixed anxiety 300.00 [...] 25-29.9) 278.02 Active Myrna maldonado MD Overweight FH COLON CANCER ICD-V16.0 Inactive Jose Zhong MD FH DIABETES ICD-V18.0 Inactive Jose Zhong MD 201 01/29/08 ACUTE FRONTAL SINUSITIS ICD-461.1 Inactive Meghan Estrada MD PhD CYSTITIS ICD-595.9 Inactive Liliana Estrada MD Ph D SINUSITIS ICD-473.9 Inactive Liliana Estrada MD Ph D IUD removal ICD-V25.42 Inactive Liliana Estrada MD PhD Diarrhea ICD-787.91 Inactive Jose Marcelo Thumb pain, right ICD-729.5 Inactive Jose pelayo MD FH BREAST CANCER ICD-V16.3 Inactive Jose Marcelo Fever ICD-780.60 Inactive Liliana Estrada MD PhD 20 08/12/16 Symptom, cough ICD-786.2 Inactive Liliana Estrada MD PhD Vaginal discharge ICD-623.5 Inactive Liliana lares MD PhD Sinusitis, acute ICD-461.9 Inactive Liliana cheema MD PhD Vaginal bleeding ICD-623.8 Inactive Jose Mcwilliams MD Urinary frequency ICD-788.41 Inactive Jose Zhong MD Medication List Medication Instructions Start Date Stop Date Generic Name ND Status Provider Patient Instruction ALPRAZOLAM 0.25 MG ORAL TABLET 1 tablet by mouth twice a day as needed for stress/anxiety ALPRAZOLAM 78366814346 Active Arie whittington MD Active ESCITALOPRAM OXALATE 10 MG ORAL TABLET take 1 tab po qhs for mod 20 10/04/18 ESCITALOPRAM OXALATE 89528848003 Active Arie Casper MD Active TUSSIONEX PENNKINETIC ER 10-8 MG/5ML ORAL SUSPENSION E XTENDED RELEASE 5ml po q12hr PRN Cough HYDROCOD POLST-CHLORPHEN POLST 5 9946428986 No Longer Active Myrna Roberto MD Active ZITHROMAX Z-EMIL 250 MG TABS Take two tablets today and then 1 tablet daily for 4 days AZITHROMYCIN 43713252495 No Longer Active Flaco Rosales MD Active GUAIFENESIN DM 400-20 MG ORAL TABLET 1 pill by mouth t wice daily, if needed for cough DEXTROMETHORPHAN-GUAIFENESIN 13160859240 No Longer Active Rich Rosales MD Active CEFDINIR 300 MG ORAL CAPSULE 1 po BID x 10 days CEFDINIR 01121319230 No Longer Active Jessica Heaton APRN Active CHERATUSSIN AC 100-10 MG/5ML ORAL SYRUP 1 tsp by mouth every 4 hours as needed for cough GUAIFENESIN-CODEINE 95875249416 No Longe r Active Jessica Heaton APRN Active TAMIFLU 75 MG ORAL CAPSULE 1 po BID x 5 days 0 OSELTAMIVIR PHOSPHATE 45374812374 No Longer Active Jose Zhong MD Activ e ZITHROMAX Z-EMIL 250 MG ORAL TABLET 2 today, then 1 daily for 4 d ays AZITHROMYCIN 28347958457 No Longer Active Arie Casper MD Active PROTONIX 40 MG ORAL TABLET DELAYED RELEASE 1 po q a.m. PANTOPRAZOLE SODIUM 00754750601 No Longer Active Arie Casper MD Active BACTRIM DS 800-160 MG ORAL TABLET 1 tab by mouth twice daily 201 05/02/30 TRIMETHOPRIM-SULFAMETHOXAZOLE 64368556872 No Longer Active R [facility] Active NEXPLANON IMPLANT right arm subcutaneously ETONOGESTREL IMPL 22833070604 No Longer Active Brii Russ APRN Active TUSSIONEX PENNKINETIC ER 10-8 MG/5ML ORAL SUSPENSION E XTENDED RELEASE 5ml po q12hr PRN Cough HYDROCOD POLST-CHLORPHEN POLST 5 9137994163 No Longer Active Brii Russ APRN Active CETIRIZINE HCL 10 MG ORAL TABLET 1 po qd PRN Allergies CETIRIZINE HCL 93627212643 No Longer Active Brii Russ APRN Activ e PREDNISONE 20 MG ORAL TABLET 2 tabs daily for 3 days, 1 tab daily for 3 days, 1/2 tab daily for 2 days PREDNISONE 26002975532 No Longer Active Arie Casper MD Active LOMOTIL 2.5-0.025 MG ORAL TABLET 1 tab po four times a day as needed for diarrhea DIPHENOXYLATE-ATROPINE 51989664607 No Lo nger Active Arie Casper MD Active ZOLOFT 50 MG ORAL TABLET 1 tablet by mouth daily 12/08 SERTRALINE HCL 13130894269 No Longer Active Arie Casper MD Ac tive NAPROXEN 500 MG ORAL TABLET Take 1 tab BID NAPR OXEN 00640480197 No Longer Active Arie Casper MD Active CEFDINIR 300 MG ORAL CAPSULE 1 po BID x 10 days CEFDINIR 45969454179 No Longer Active Brii Russ APRN Active PREDNISONE 20 MG ORAL TABLET 1 tablet daily for airway inflammat ion PREDNISONE 19075188230 No Longer Active Brii Russ APRN A ctive CEFDINIR 300 MG ORAL CAPSULE 1 po BID x 10 days CEFDINIR 11202926150 No Longer Active Jono Gagnon DO Active FLONASE 50 MCG/ACT NASAL SUSPENSION 1 spray each nostr il twice daily for allergies and runny nose until gone FLUT ICASONE PROPIONATE 75691490269 No Longer Active Jono Gagnon DO Active ALPRAZOLAM 0.25 MG ORAL TABLET 1 tablet by mouth every 8 hours as needed for stress ALPRAZOLAM 19943818792 No Longer Active Jono Gagnon DO Active ZITHROMAX Z-EMIL 250 MG ORAL TABLET 2 today, then 1 daily for 4 d ays AZITHROMYCIN 34518225120 No Longer Active Arie Casper MD Active PREDNISONE 20 MG ORAL TABLET 2 tabs daily for 3 days, 1 tab daily for 3 days, 1/2 tab daily for 2 days PREDNISONE 05673872309 No Longer Active Brii Russ APRN Active PREDNISONE 20 MG ORAL TABLET 1 tablet twice daily for 2 days, then 1 tablet once daily for 2 days PREDNISONE 89768354638 No Longer Active Brii Russ APRN Active PROMETHAZINE HCL 12.5 MG ORAL TABLET 1 tablet by mouth every 6 hours as needed for nausea/vomiting PROMETHAZINE HCL 86845501804 No L onger Active Jono Gagnon DO Active CITRATE OF MAGNESIA ORAL SOLUTION 1 bottle today for constipatio n MAGNESIUM CITRATE 27633597992 No Longer Active Jono Gagnon DO Active ZOFRAN 4 MG ORAL TABLET 1 TAB PO Q 6 HRS PRN NAUSEA 07/10/15 ONDANSETRON HCL 42618527619 No Longer Active Brii Russ APRN Acti ve LOMOTIL 2.5-0.025 MG ORAL TABLET 1 to 2 four times a day as needed for diarrhea DIPHENOXYLATE-ATROPINE 70633789588 No Longer Active January Russ APRN Active AMOXICILLIN 500 MG ORAL TABLET 2 tabs twice a day for 10 days 07/09/11 AMOXICILLIN 80365814789 No Longer Active Brii Russ APRN Active CYCLOBENZAPRINE HCL 10 MG ORAL TABLET 1/2 - 1 tablet b y mouth three times daily as needed for muscle spasm/pain CYCLOBENZAPRINE HCL 18340592167 No Longer Active Arie Casper MD Active LOMOTIL 2.5-0.025 MG ORAL TABLET 1 to 2 four times a day as needed for diarrhea DIPHENOXYLATE-ATROPINE 25724318152 No Longer Active Fozia Casper MD Active MACROBID 100 MG ORAL CAPSULE 1 cap by mouth twice daily NITROFURANTOIN MONOHYD MACRO 91791828256 No Longer Active Arie Casper MD Active ZYRTEC ALLERGY 10 MG ORAL CAPSULE 1 po qd CE TIRIZINE HCL 79065855275 No Longer Active Arie Casper MD Active AZITHROMYCIN 250 MG ORAL TABLET 2 po qd x 1 day, then 1 po q d x 4 days AZITHROMYCIN 30412563050 No Longer Active Jessica salgado [employer] Active PREDNISONE 20 MG ORAL TABLET 2 tabs daily for 3 days, 1 tab daily for 3 days, 1/2 tab daily for 2 days PREDNISONE 02150817187 No Longer Active Jillarlen Heaton [employer] Active PROMETHAZINE HCL 25 MG ORAL TABLET 1 four times a day as nee ded for vomiting PROMETHAZINE HCL 93921114249 No Longer Active Myrna Roberto MD Active BACTRIM DS 800-160 MG ORAL TABLET 1 twice a day 05/30 SULFAMETHOXAZOLE-TRIMETHOPRIM 25189868601 No Longer Active Myrna Roberto MD Active VICKS DAYQUIL SEVERE COLD/FLU TABLET 1 tab every 6 hours prn 201 02/22/17 [id number] TABS 39282922061 No Longer Active Chris Roberto MD Active GUAIFENESIN-CODEINE 100-10 MG/5ML ORAL SYRUP 2 tsp every 6 hours prn GUAIFENESIN-CODEINE 95956318667 No Longer Active Myrna Roberto MD Active NAPROXEN 500 MG ORAL TABLET one tab PO BID NAPR OXEN 78425334957 No Longer Active Myrna Roberto MD Active AUGMENTIN 875-125 MG ORAL TABLET 1 tab by mouth twice daily with food AMOXICILLIN-POT CLAVULANATE 87216922855 No Longer Act zaid Liliana Estrada MD PhD Active AMOXICILLIN 500 MG ORAL CAPSULE 1 tab by mouth 3 times daily 201 02/21/05 AMOXICILLIN 57981482007 No Longer Active Liliana Estrada MD PhD Active TESSALON PERLES 100 MG ORAL CAPSULE 1 tablet by mouth 3 times da cory BENZONATATE 07813756955 No Longer Active Liliana Estrada MD PhD Active FLAGYL 500 MG ORAL TABLET 1 tablet by mouth two times daily 2014 METRONIDAZOLE 92269605043 No Longer Active Nilam Doran tive ZITHROMAX 250 MG ORAL TABLET 2 po today, then 1 po q days 2-5 20 06/08/16 AZITHROMYCIN 24701119468 No Longer Active Arie Casper MD Active VITAMINS 0.8 MG ORAL TABLET take 1 tab po qday [id number] 89087065584 No Longer Active Arie Casper MD Active IBUPROFEN 800 MG ORAL TABLET take one po Q 8 hours 201 02/01/16 IBUPROFEN 80893540054 No Longer Active Arie Casper MD Acti ve [facility] TUSSIN COUGH/COLD CF 5-10-100 MG/5ML ORAL LIQUID 2 teasp oons every 4 hours [id number] 11633429642 No Longer Active Blaine Casper MD Active COMTREX COLD/COUGH DAY/NITE MS 5-2-10-325 MG ORAL 2 caps deja ry 4 hours [id number]-APAP 33831426784 No Longer Active Da aleksanrda Casper MD Active CHLORASEPTIC MAX SORE THROAT 15-10 MG MOUTH/THROAT LOZENGE 1 every 2 hours prn BENZOCAINE-MENTHOL 35141849153 No Longer Active Arie Casper MD Active PREDNISONE 20 MG ORAL TABLET 2 tabs daily for 3 days, 1 tab daily for 3 days, 1/2 tab daily for 2 days PREDNISONE 44364672756 No Longer Active Jose Zhong MD Active AZITHROMYCIN 250 MG ORAL TABLET 2 po qd x 1 day, then 1 po q d x 4 days AZITHROMYCIN 66414264673 No Longer Active Jose Mcwilliams MD Active ZOFRAN ODT 4 MG ORAL TABLET DISINTEGRATING 1 po q6hr PRN Nausea ONDANSETRON 68373824572 No Longer Active Rich Rosales MD Active ZOFRAN 4 MG ORAL TABLET 1 tablet every 4 hours ONDANSETRON HCL 72308641623 No Longer Active Rich Rosales MD Activ e MUCINEX 600 MG ORAL TABLET EXTENDED RELEASE 12 HOUR Ta ke 1-2 tablets every 12 hours GUAIFENESIN 54638690879 No Longer Active Rich Rosales MD Active BACTRIM 400-80 MG ORAL TABLET take one po BID SULFAMETHOXAZOLE-TRIMETHOPRIM 70190435404 No Longer Active Abelardo HERNANDEZ Active AZITHROMYCIN 500 MG ORAL TABLET 1 PO q day x 6 days 20 03/02/23 AZITHROMYCIN 82757757048 No Longer Active Tin HERNANDEZ Activ e ZITHROMAX 250 MG ORAL TABLET 2 po today, then 1 po q days 2-5 20 10/03/08 AZITHROMYCIN 56463211470 No Longer Active Arie Casper MD Active ZITHROMAX 250 MG ORAL TABLET 2 po today, then 1 po q days 2-5 20 09/23/25 AZITHROMYCIN 62689731758 No Longer Active Arie Casper MD Active AMOXICILLIN 500 MG ORAL CAPSULE 1 tab by mouth 3 times daily 201 11/24/09 AMOXICILLIN 94010420218 No Longer Active Arie Casper MD Active BACTRIM DS 800-160 MG ORAL TABLET 1 tab by mouth twice daily 201 11/03/14 TRIMETHOPRIM-SULFAMETHOXAZOLE 70500800424 No Longer Active Fozia Casper MD Active AMOXICILLIN 500 MG ORAL TABLET take 1 tab po TID 08/05 AMOXICILLIN 43091999732 No Longer Active Arie Casper MD Acti ve BACTRIM DS 800-160 MG ORAL TABLET 1 tab by mouth twice daily 201 11/03/14 BACTRIM DS 800-160 MG ORAL TABLET 384457 TRIMETHOPRIM-SULFAMETHOXAZOLE Inactive MUCINEX 600 MG ORAL TABLET EXTENDED RELEASE 12 HOUR Ta ke 1-2 tablets every 12 hours MUCINEX 600 MG ORAL TABLET EXTENDED RELEA SE 12 HOUR GUAIFENESIN Inactive ZOFRAN 4 MG ORAL TABLET 1 tablet every 4 hours ZOFRAN 4 MG ORAL TABLET 752770 ONDANSETRON HCL Inactive ZOFRAN ODT 4 MG ORAL TABLET DISINTEGRATING 1 po q6hr PRN Nausea ZOFRAN ODT 4 MG ORAL TABLET DISINTEGRATING 333547 ONDAN SETRON Inactive CHLORASEPTIC MAX SORE THROAT 15-10 MG MOUTH/THROAT LOZENGE 1 every 2 hours prn CHLORASEPTIC MAX SORE THROAT 15-10 MG MOUTH/THROAT LOZENGE BENZOCAINE-MENTHOL Inactive COMTREX COLD/COUGH DAY/NITE MS 5-2-10-325 MG ORAL 2 caps deja ry 4 hours COMTREX COLD/COUGH DAY/NITE MS 5-2-10-325 MG ORA L [id number] Inactive [facility] TUSSIN COUGH/COLD CF 5-10-100 MG/5ML ORAL LIQUID 2 teasp oons every 4 hours [facility] TUSSIN COUGH/COLD CF 5-10-100 MG/5ML ORAL LI QUID [id number] Inactive IBUPROFEN 800 MG ORAL TABLET take one po Q 8 hours 201 02/01/16 IBUPROFEN 800 MG ORAL TABLET 300261 IBUPROFEN Inactive VITAMINS 0.8 MG ORAL TABLET take 1 tab po qday VITAMINS 0.8 MG ORAL TABLET [id number] E-FA Inactive TESSALON PERLES 100 MG ORAL CAPSULE 1 tablet by mouth 3 times da cory TESSALON PERLES 100 MG ORAL CAPSULE 604080 BENZONATATE Inactive AMOXICILLIN 500 MG ORAL CAPSULE 1 tab by mouth 3 times daily 201 02/21/05 AMOXICILLIN 500 MG ORAL CAPSULE 046161 AMOXICILLIN Inactive GUAIFENESIN-CODEINE 100-10 MG/5ML ORAL SYRUP 2 tsp every 6 hours prn GUAIFENESIN-CODEINE 100-10 MG/5ML ORAL SYRUP 235955 GUAIFENESIN-CODEINE Inactive VICKS DAYQUIL SEVERE COLD/FLU TABLET 1 tab every 6 hours prn 201 02/22/17 VICKS DAYQUIL SEVERE COLD/FLU TABLET PHENYLEPHRI HC-AX-RM-APAP TABS Inactive BACTRIM DS 800-160 MG ORAL TABLET 1 twice a day 05/30 BACTRIM DS 800-160 MG ORAL TABLET 524322 SULFAMETHOXAZOLE-TRIMETHOPRIM Inactiv e PROMETHAZINE HCL 25 MG ORAL TABLET 1 four times a day as nee ded for vomiting PROMETHAZINE HCL 25 MG ORAL TABLET 981072 PROMETHAZINE HCL Inactive ZYRTEC ALLERGY 10 MG ORAL CAPSULE 1 po qd ZYRTEC ALLERGY 10 MG ORAL CAPSULE CETIRIZINE HCL Inactive MACROBID 100 MG ORAL CAPSULE 1 cap by mouth twice daily MACROBID 100 MG ORAL CAPSULE 0537781 NITROFURANTOIN MONOHYD MACRO In active LOMOTIL 2.5-0.025 MG ORAL TABLET 1 to 2 four times a day as needed for diarrhea LOMOTIL 2.5-0.025 MG ORAL TABLET 4844841 DIPHENOXYLATE-ATROPINE Inactive CYCLOBENZAPRINE HCL 10 MG ORAL TABLET 1/2 - 1 tablet b y mouth three times daily as needed for muscle spasm/pain CYCLOBEN ZAPRINE HCL 10 MG ORAL TABLET 482083 CYCLOBENZAPRINE HCL Inactive AMOXICILLIN 500 MG ORAL TABLET 2 tabs twice a day for 10 days 20 07/09/11 AMOXICILLIN 500 MG ORAL TABLET 114588 AMOXICILLIN I nactive LOMOTIL 2.5-0.025 MG ORAL TABLET 1 to 2 four times a day as needed for diarrhea LOMOTIL 2.5-0.025 MG ORAL TABLET 1925695 DIPHENOXYLATE-ATROPINE Inactive ZOFRAN 4 MG ORAL TABLET 1 TAB PO Q 6 HRS PRN NAUSEA 07/10/15 ZOFRAN 4 MG ORAL TABLET 118184 ONDANSETRON HCL Inactive CITRATE OF MAGNESIA ORAL SOLUTION 1 bottle today for constipatio n CITRATE OF MAGNESIA ORAL SOLUTION 3231477 MAGNESIUM CITR ATE Inactive PROMETHAZINE HCL 12.5 MG ORAL TABLET 1 tablet by mouth every 6 hours as needed for nausea/vomiting PROMETHAZINE HCL 12.5 MG ORA L TABLET 890084 PROMETHAZINE HCL Inactive PREDNISONE 20 MG ORAL TABLET 1 tablet twice daily for 2 days, then 1 tablet once daily for 2 days PREDNISONE 20 MG ORAL TABLET 664022 PREDNISONE Inactive ALPRAZOLAM 0.25 MG ORAL TABLET 1 tablet by mouth every 8 hours as needed for stress ALPRAZOLAM 0.25 MG ORAL TABLET 580633 ALPRA ZOLAM Inactive FLONASE 50 MCG/ACT NASAL SUSPENSION 1 spray each nostr il twice daily for allergies and runny nose until gone FLON ASE 50 MCG/ACT NASAL SUSPENSION 0832662 FLUTICASONE PROPIONATE Inactive PREDNISONE 20 MG ORAL TABLET 1 tablet daily for airway inflammat ion PREDNISONE 20 MG ORAL TABLET 223381 PREDNISONE Arlen ctive NAPROXEN 500 MG ORAL TABLET Take 1 tab BID NAPROXEN 500 MG ORAL TABLET 509195 NAPROXEN Inactive ZOLOFT 50 MG ORAL TABLET 1 tablet by mouth daily 12/08 ZOLOFT 50 MG ORAL TABLET 516520 SERTRALINE HCL Inactive LOMOTIL 2.5-0.025 MG ORAL TABLET 1 tab po four times a day as needed for diarrhea LOMOTIL 2.5-0.025 MG ORAL TABLET 6857709 DIPHENOXYLATE-ATROPINE Inactive CETIRIZINE HCL 10 MG ORAL TABLET 1 po qd PRN Allergies CETIRIZINE HCL 10 MG ORAL TABLET 2484550 CETIRIZINE HCL Inactiv e TUSSIONEX PENNKINETIC ER 10-8 MG/5ML ORAL SUSPENSION E XTENDED RELEASE 5ml po q12hr PRN Cough TUSSIONEX PENNKINETI C ER 10-8 MG/5ML ORAL SUSPENSION EXTENDED RELEASE HYDROCOD POLST-CHLORPHEN POLST I nactive NEXPLANON IMPLANT right arm subcutaneously NEXPLANON IMPLANT ETONOGESTREL IMPL Inactive PROTONIX 40 MG ORAL TABLET DELAYED RELEASE 1 po q a.m. PROTONIX 40 MG ORAL TABLET DELAYED RELEASE 070893 PANTOPRAZOLE SODI UM Inactive CHERATUSSIN AC 100-10 MG/5ML ORAL SYRUP 1 tsp by mouth every 4 hours as needed for cough CHERATUSSIN AC 100-10 MG/5ML ORAL SYRUP 9 70645 GUAIFENESIN-CODEINE Inactive GUAIFENESIN DM 400-20 MG ORAL [...] TID 08/05 AMOXICILLIN 500 MG ORAL TABLET 320679 AMOXICILLIN Inactive AMOXICILLIN 500 MG ORAL CAPSULE 1 tab by mouth 3 times daily 201 11/24/09 AMOXICILLIN 500 MG ORAL CAPSULE 720981 AMOXICILLIN Inactive ZITHROMAX 250 MG ORAL TABLET 2 po today, then 1 po q days 2-5 20 09/23/25 ZITHROMAX 250 MG ORAL TABLET 031822 AZITHROMYCIN Arlen ctive ZITHROMAX 250 MG ORAL TABLET 2 po today, then 1 po q days 2-5 20 10/03/08 ZITHROMAX 250 MG ORAL TABLET 146841 AZITHROMYCIN Arlen ctive AZITHROMYCIN 500 MG ORAL TABLET 1 PO q day x 6 days 20 03/02/23 AZITHROMYCIN 500 MG ORAL TABLET 4170325 AZITHROMYCIN Inactive BACTRIM 400-80 MG ORAL TABLET take one po BID BACTRIM 400- 80 MG ORAL TABLET 358582 SULFAMETHOXAZOLE-TRIMETHOPRIM Inactive AZITHROMYCIN 250 MG ORAL TABLET 2 po qd x 1 day, then 1 po q d x 4 days AZITHROMYCIN 250 MG ORAL TABLET 407234 AZITHROMY ALLISON Inactive PREDNISONE 20 MG ORAL TABLET 2 tabs daily for 3 days, 1 tab daily for 3 days, 1/2 tab daily for 2 days PREDNISONE 20 MG ORAL T ABLET 629164 PREDNISONE Inactive ZITHROMAX 250 MG ORAL TABLET 2 po today, then 1 po q days 2-5 20 06/08/16 ZITHROMAX 250 MG ORAL TABLET 039836 AZITHROMYCIN Arlen ctive FLAGYL 500 MG ORAL TABLET 1 tablet by mouth two times daily 2014 FLAGYL 500 MG ORAL TABLET 156729 METRONIDAZOLE Inacti ve AUGMENTIN 875-125 MG ORAL TABLET 1 tab by mouth twice daily with food AUGMENTIN 875-125 MG ORAL TABLET 496513 AMOXICIL ELSA-POT CLAVULANATE Inactive NAPROXEN 500 MG ORAL TABLET one tab PO BID NAPROXEN 500 MG ORAL TABLET 329559 NAPROXEN Inactive PREDNISONE 20 MG ORAL TABLET 2 tabs daily for 3 days, 1 tab daily for 3 days, 1/2 tab daily for 2 days PREDNISONE 20 MG ORAL T ABLET 031620 PREDNISONE Inactive AZITHROMYCIN 250 MG ORAL TABLET 2 po qd x 1 day, then 1 po q d x 4 days AZITHROMYCIN 250 MG ORAL TABLET 037093 AZITHROMY ALLISON Inactive PREDNISONE 20 MG ORAL TABLET 2 tabs daily for 3 days, 1 tab daily for 3 days, 1/2 tab daily for 2 days PREDNISONE 20 MG ORAL T ABLET 654438 PREDNISONE Inactive ZITHROMAX Z-EMIL 250 MG ORAL TABLET 2 today, then 1 daily for 4 d ays ZITHROMAX Z-EMIL 250 MG ORAL TABLET 152185 AZITHROMYCIN Inactive CEFDINIR 300 MG ORAL CAPSULE 1 po BID x 10 days 12/18 CEFDINIR 300 MG ORAL CAPSULE 20030127 CEFDINIR Inactive CEFDINIR 300 MG ORAL CAPSULE 1 po BID x 10 days CEFDINIR 300 MG ORAL CAPSULE 522257 CEFDINIR Inactive PREDNISONE 20 MG ORAL TABLET 2 tabs daily for 3 days, 1 tab daily for 3 days, 1/2 tab daily for 2 days PREDNISONE 20 MG ORAL T ABLET 030512 PREDNISONE Inactive BACTRIM DS 800-160 MG ORAL TABLET 1 tab by mouth twice daily 201 05/02/30 BACTRIM DS 800-160 MG ORAL TABLET 279019 TRIMETHOPRIM-SULFAMETHOXAZOLE Inactive ZITHROMAX Z-EMIL 250 MG ORAL TABLET 2 today, then 1 daily for 4 d ays ZITHROMAX Z-EMIL 250 MG ORAL TABLET 750261 AZITHROMYCIN Inactive TAMIFLU 75 MG ORAL CAPSULE 1 po BID x 5 days 0 TAMIFLU 75 MG ORAL CAPSULE 919533 OSELTAMIVIR PHOSPHATE Inactive CEFDINIR 300 MG ORAL CAPSULE 1 po BID x 10 days 01/03 CEFDINIR 300 MG ORAL CAPSULE 015039 CEFDINIR Inactive ZITHROMAX Z-EMIL 250 MG TABS Take two tablets today and then 1 tablet daily for 4 days ZITHROMAX Z-EMIL 250 MG TABS 762096 AZITHROM YCIN Inactive Advance Directives Directive Description [...] Value Unit Range Description blood pressure, diastolic 82 mm[Hg] BP kennedy [...] Unit Range Description Lab Report: CBC, Quant [facility] [place] - Hematology leukocyte count, blood 7.8 10^3/MM^3 [...] Negative Encounters Code Encounter Date Provider Facility CPT-53153 [id number] Vst-Est Level IV 13:30:22 Benedicto Casper MD [facility] CPT-83688 Level 4 Est. Patient 13:05:26 CDT Myrna maldonado MD [facility]-42866 [id number] Vst-Est Level IV 20:50:21 C DT Arie Casper MD [facility]-72408 Level 3 Est. Patient 11:49:34 SOFTWARE LICENSING EXECUTIVE Jessica boyd [facility] CPT-27638 Level 3 Est. Patient 14:55:50 SOFTWARE LICENSING EXECUTIVE Jose Zhong MD [facility]-24615 Level 3 Est. Patient 10:21:41 SOFTWARE LICENSING EXECUTIVE Arie mcqueen MD [facility] CPT-81711 Level 3 Est. Patient 11:35:15 SOFTWARE LICENSING EXECUTIVE Arie mcqueen MD [facility]-94108 Level 3 Est. Patient 15:40:28 CDT Brii Are [facility] CPT-87909 Level 3 Est. Patient 16:40:36 CDT Arie mcqueen MD [facility] CPT-43556 Level 4 Est. Patient 15:29:22 SOFTWARE LICENSING EXECUTIVE Arie mcqueen MD [facility] CPT-69113 Level 3 Est. Patient 15:18:16 SOFTWARE LICENSING EXECUTIVE Jono black [facility] CPT-67526 Level 4 Est. Patient 12:08:40 SOFTWARE LICENSING EXECUTIVE Brii Are ll [facility] CPT-57000 Level 3 Est. Patient 09:24:42 CDT Brii Are ll [facility] CPT-94645 Level 3 Est. Patient 09:12:56 CDT Arie mcqueen MD [facility] CPT-39013 Level 3 Est. Patient 16:40:54 CDT Jose Zhong MD [facility] CPT-70393 Level 2 Est. Patient 13:01:13 CDT Brii Are ll [facility] CPT-13281 Level 3 Est. Patient 11:55:30 SOFTWARE LICENSING EXECUTIVE Jono black [facility] CPT-27805 Level 3 Est. Patient 09:52:36 SOFTWARE LICENSING EXECUTIVE Brii Yepez boris CABRERA [facility] CPT-38978 Level 3 Est. Patient 16:25:33 SOFTWARE LICENSING EXECUTIVE Rich Rosales MD [facility]-91384 Level 3 Est. Patient 20:33:55 CDT Arie mcqueen MD [facility] CPT-35723 Level 3 Est. Patient 14:18:20 CDT Rich Rosales MD [facility] CPT-50496 Level 4 Est. Patient 09:34:31 CDT Arie mcqueen MD [facility]-45982 Level 3 Est. Patient 09:08:55 SOFTWARE LICENSING EXECUTIVE Liliana vincent MD PhD [facility] CPT-77848 Level 3 Est. Patient 16:44:07 SOFTWARE LICENSING EXECUTIVE Arie mcqueen MD [facility] CPT-31884 Level 3 Est. Patient 10:44:27 CDT Arie mcqueen MD [facility] CPT-99337 Level 3 Est. Patient 08:55:41 CDT Jose Zhong MD [facility]-13705 Level 3 Est. Patient 18:37:31 CDT Liliana vincent MD [facility]-56120 Level 3 Est. Patient 14:28:23 CDT Abelardo HERNANDEZ [facility] CPT-75932 Level 3 Est. Patient 15:18:13 SOFTWARE LICENSING EXECUTIVE Arie mcqueen MD [facility] CPT-27688 Level 3 Est. Patient 10:11:29 SOFTWARE LICENSING EXECUTIVE Arie mcqueen MD [facility] CPT-89829 Level 3 Est. Patient 10:55:57 SOFTWARE LICENSING EXECUTIVE Jono black DO [facility] CPT-45754 Level 3 Est. Patient 17:29:05 CDT Arie mcqueen MD [facility] Procedures Code Procedure Name Date Entry Date Standard Desc ription CPT-69707 Nexplanon Removal 15:40:28 CDT CPT-42229 Sono transvag pelvis non OB uterus ovari es cervix - XRAY USE ONLY 08:58:14 SOFTWARE LICENSING EXECUTIVE CPT-28835 UA w micro - LAB USE ONLY 16:04:56 SOFTWARE LICENSING EXECUTIVE 2015 CPT-64618 Wet Prep/GEN - LAB USE ONLY 16:04:56 SOFTWARE LICENSING EXECUTIVE 20 08/10/29 CPT-86362 First Vx - Ix admin via ID I M or jet injects without counseling by physician 16:57:10 CDT CPT-52798 Fluzone Preservative Free Intramuscular Suspension 16:57:10 CDT CPT-J0696 Rocephin 1000 mg (Ceftriaxone) 11:49:23 CDT CPT-J1040 Depo Medrol 80 mg (Methyl Prednisolone A cetate) 11:49:23 CDT CPT-J1100 Decadron 8mg (Dexamethasone) 11:49:23 CDT 2 CPT-38405 Abx/Therapy Injection 11:49:23 CDT CPT-41483 Abx/Therapy Injection 11:49:23 CDT CPT-48015 Abd compl w upright 09:07:26 SOFTWARE [employer]ICENSING EXECUTIVE CPT-68750 Ear Wash 16:12:47 SOFTWARE LICENSING EXECUTIVE CPT-OV Office Visit 11:12:01 CDT CPT-OV Office Visit 15:30:23 CDT CPT-72750 Sono pelvis non OB uterus ovaries cervix 15:50:44 CDT CPT-84951 Hand comp min 3V 16:42:32 CDT CPT-31789 Abd compl w upright 12:17:01 CDT CPT-91224 Nexplanon Placement 15:07:39 SOFTWARE LICENSING EXECUTIVE CPT-13494 Removal of IUD 15:07:39 SOFTWARE LICENSING EXECUTIVE CPT-04158 TB Tubersol 12:09:32 CDT [id number] Tubersol 13:55:43 CDT
--- OUTSIDE RECORDS SUMMARY | 2020-03-03 07:13 | XMS REPORT | Clinical Summary ---
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 Dysthymic disorder URI 465.9 Active Jono Gagnon DO Acu te upper respiratory infections of unspecified site Vaginal bleeding 623.8 Resolved Jose Zhong MD Other specified noninflammatory disorders of vagina High risk sexual behavior V69.2 Active Arie Casper MD High-risk sexual behavior GERD 530.81 Active Arie Casper MD Esophageal reflux Encounter for surveillance of implantable subdermal contraceptiv e Active Brii Russ [employer]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 Vaginal bleeding 623.8 Active Arie Casper MD Other specified noninflammatory disorders of vagina Influenza like illness 487.1 Active Jose Mcwilliams MD Influenza with other respiratory manifestations Sinusitis 473.9 Active Jessica Heaton F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 Unspecified sinusitis (chronic) Other mixed anxiety 300.00 [...] 278.02 Active Myrna maldonado MD Overweight FH BREAST CANCER ICD-V16.3 Inactive Jose Marcelo [...] a day as needed for stress/anxiety ALPRAZOLAM [id number] Active Arie whittington MD Active ESCITALOPRAM OXALATE 10 MG ORAL TABLET take 1 tab po qhs for mod 20 10/04/18 ESCITALOPRAM OXALATE 83799940775 Active Arie Casper MD Active TUSSIONEX PENNKINETIC ER 10-8 MG/5ML ORAL SUSPENSION E XTENDED RELEASE 5ml po q12hr PRN Cough HYDROCOD POLST-CHLORPHEN POLST 5 5339214676 No Longer Active Myrna Roberto MD Active ZITHROMAX Z-EMIL 250 MG TABS Take two tablets today and then 1 tablet daily for 4 days AZITHROMYCIN 88292460784 No Longer Active Flaco Rosales MD Active GUAIFENESIN DM 400-20 MG ORAL TABLET 1 pill by mouth t wice daily, if needed for cough DEXTROMETHORPHAN-GUAIFENESIN 18001507175 No Longer Active Rich Rosales MD Active CEFDINIR 300 MG ORAL CAPSULE 1 po BID x 10 days CEFDINIR 86401654512 No Longer Active Jessica Heaton APRN Active CHERATUSSIN AC 100-10 MG/5ML ORAL SYRUP 1 tsp by mouth every 4 hours as needed for cough GUAIFENESIN-CODEINE 36532568542 No Longe r Active Jessica Heaton APRN Active TAMIFLU 75 MG ORAL CAPSULE 1 po BID x 5 days 0 OSELTAMIVIR PHOSPHATE 30860929938 No Longer Active Jose Zhong MD Activ e ZITHROMAX Z-EMIL 250 MG ORAL TABLET 2 today, then 1 daily for 4 d ays AZITHROMYCIN 96660619984 No Longer Active Arie Casper MD Active PROTONIX 40 MG ORAL TABLET DELAYED RELEASE 1 po q a.m. PANTOPRAZOLE SODIUM 09724647501 No Longer Active Arie Casper MD Active BACTRIM DS 800-160 MG ORAL TABLET 1 tab by mouth twice daily 201 05/02/30 TRIMETHOPRIM-SULFAMETHOXAZOLE 21594876969 No Longer Active R [facility] Ty Active NEXPLANON IMPLANT right arm subcutaneously ETONOGESTREL IMPL 40300374015 No Longer Active Brii Russ APRN Active TUSSIONEX PENNKINETIC ER 10-8 MG/5ML ORAL SUSPENSION E XTENDED RELEASE 5ml po q12hr PRN Cough HYDROCOD POLST-CHLORPHEN POLST 5 4511986183 No Longer Active Brii Russ APRN Active CETIRIZINE HCL 10 MG ORAL TABLET 1 po qd PRN Allergies CETIRIZINE HCL 56281124879 No Longer Active Brii Russ APRN Activ e PREDNISONE 20 MG ORAL TABLET 2 tabs daily for 3 days, 1 tab daily for 3 days, 1/2 tab daily for 2 days PREDNISONE 33771294485 No Longer Active Arie Casper MD Active LOMOTIL 2.5-0.025 MG ORAL TABLET 1 tab po four times a day as needed for diarrhea DIPHENOXYLATE-ATROPINE 81509995934 No Lo nger Active Arie Casper MD Active ZOLOFT 50 MG ORAL TABLET 1 tablet by mouth daily 12/08 SERTRALINE HCL 24173381952 No Longer Active Arie Casper MD Ac tive NAPROXEN 500 MG ORAL TABLET Take 1 tab BID NAPR OXEN 92531056396 No Longer Active Arie Casper MD Active CEFDINIR 300 MG ORAL CAPSULE 1 po BID x 10 days CEFDINIR 23203877628 No Longer Active Brii Russ APRN Active PREDNISONE 20 MG ORAL TABLET 1 tablet daily for airway inflammat ion PREDNISONE 43062391677 No Longer Active Brii Russ APRN A ctive CEFDINIR 300 MG ORAL CAPSULE 1 po BID x 10 days CEFDINIR 90889284728 No Longer Active Jono Gagnon DO Active FLONASE 50 MCG/ACT NASAL SUSPENSION 1 spray each nostr il twice daily for allergies and runny nose until gone FLUT ICASONE PROPIONATE 27951651421 No Longer Active Jono Gagnon DO Active ALPRAZOLAM 0.25 MG ORAL TABLET 1 tablet by mouth every 8 hours as needed for stress ALPRAZOLAM 71604444697 No Longer Active Jono Gagnon DO Active ZITHROMAX Z-EMIL 250 MG ORAL TABLET 2 today, then 1 daily for 4 d ays AZITHROMYCIN 85596667387 No Longer Active Arie Casper MD Active PREDNISONE 20 MG ORAL TABLET 2 tabs daily for 3 days, 1 tab daily for 3 days, 1/2 tab daily for 2 days PREDNISONE 06686581168 No Longer Active Briiarnaldo Russ APRN Active PREDNISONE 20 MG ORAL TABLET 1 tablet twice daily for 2 days, then 1 tablet once daily for 2 days PREDNISONE 34269309824 No Longer Active Brii Russ APRN Active PROMETHAZINE HCL 12.5 MG ORAL TABLET 1 tablet by mouth every 6 hours as needed for nausea/vomiting PROMETHAZINE HCL 94055835881 No L onger Active Jono Gagnon DO Active CITRATE OF MAGNESIA ORAL SOLUTION 1 bottle today for constipatio n MAGNESIUM CITRATE 69665406754 No Longer Active Jono Gagnon DO Active ZOFRAN 4 MG ORAL TABLET 1 TAB PO Q 6 HRS PRN NAUSEA 07/10/15 ONDANSETRON HCL 33712125183 No Longer Active Brii Russ APRN Acti ve LOMOTIL 2.5-0.025 MG ORAL TABLET 1 to 2 four times a day as needed for diarrhea DIPHENOXYLATE-ATROPINE 33088587001 No Longer Active January Russ APRN Active AMOXICILLIN 500 MG ORAL TABLET 2 tabs twice a day for 10 days 20 07/09/11 AMOXICILLIN 00262281779 No Longer Active Brii Russ APRN Active CYCLOBENZAPRINE HCL 10 MG ORAL TABLET 1/2 - 1 tablet b y mouth three times daily as needed for muscle spasm/pain CYCLOBENZAPRINE HCL 03799767918 No Longer Active Arie Casper MD Active LOMOTIL 2.5-0.025 MG ORAL TABLET 1 to 2 four times a day as needed for diarrhea DIPHENOXYLATE-ATROPINE 85797994795 No Longer Active Fozia Casper MD Active MACROBID 100 MG ORAL CAPSULE 1 cap by mouth twice daily NITROFURANTOIN MONOHYD MACRO 17650482894 No Longer Active Arie Casper MD Active ZYRTEC ALLERGY 10 MG ORAL CAPSULE 1 po qd CE TIRIZINE HCL 65078110463 No Longer Active Arie Casper MD Active AZITHROMYCIN 250 MG ORAL TABLET 2 po qd x 1 day, then 1 po q d x 4 days AZITHROMYCIN 86286250680 No Longer Active Jessica salgado F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 Active PREDNISONE 20 MG ORAL TABLET 2 tabs daily for 3 days, 1 tab daily for 3 days, 1/2 tab daily for 2 days PREDNISONE 28284527525 No Longer Active Jessica Heaton APRN Active PROMETHAZINE HCL 25 MG ORAL TABLET 1 four times a day as nee ded for vomiting PROMETHAZINE HCL 40743675267 No Longer Active Myrna Roberto MD Active BACTRIM DS 800-160 MG ORAL TABLET 1 twice a day 05/30 SULFAMETHOXAZOLE-TRIMETHOPRIM 78897236424 No Longer Active Myrna Roberto MD Active VICKS DAYQUIL SEVERE COLD/FLU TABLET 1 tab every 6 hours prn 201 02/22/17 [id number]-AZ-ZS-APAP TABS 29743460211 No Longer Active Chris Roberto MD Active GUAIFENESIN-CODEINE 100-10 MG/5ML ORAL SYRUP 2 tsp every 6 hours prn GUAIFENESIN-CODEINE 06742928770 No Longer Active Myrna Roberto MD Active NAPROXEN 500 MG ORAL TABLET one tab PO BID NAPR OXEN 93658964628 No Longer Active Myrna Roberto MD Active AUGMENTIN 875-125 MG ORAL TABLET 1 tab by mouth twice daily with food AMOXICILLIN-POT CLAVULANATE 63822116490 No Longer Act zaid Liliana Estrada MD PhD Active AMOXICILLIN 500 MG ORAL CAPSULE 1 tab by mouth 3 times daily 201 02/21/05 AMOXICILLIN 81248042852 No Longer Active Liliana Etsrada MD PhD Active TESSALON PERLES 100 MG ORAL CAPSULE 1 tablet by mouth 3 times da cory BENZONATATE 61641727874 No Longer Active Liliana Estrada MD PhD Active FLAGYL 500 MG ORAL TABLET 1 tablet by mouth two times daily 2014 METRONIDAZOLE 40485426059 No Longer Active Nilam Doran tive ZITHROMAX 250 MG ORAL TABLET 2 po today, then 1 po q days 2-5 20 06/08/16 AZITHROMYCIN 14650371063 No Longer Active Arie Casper MD Active VITAMINS 0.8 MG ORAL TABLET take 1 tab po qday [id number] 54487651362 No Longer Active Arie Casper MD Active IBUPROFEN 800 MG ORAL TABLET take one po Q 8 hours 201 02/01/16 IBUPROFEN 78780532300 No Longer Active Arie Casper MD Acti ve [facility] TUSSIN COUGH/COLD CF 5-10-100 MG/5ML ORAL LIQUID 2 teasp oons every 4 hours [id number] 12285213255 No Longer Active Blaine Casper MD Active COMTREX COLD/COUGH DAY/NITE MS 5-2-10-325 MG ORAL 2 caps deja ry 4 hours [id number] 92197874487 No Longer Active Da aleksandra Casper MD Active CHLORASEPTIC MAX SORE THROAT 15-10 MG MOUTH/THROAT LOZENGE 1 every 2 hours prn BENZOCAINE-MENTHOL 84099376901 No Longer Active Arie Casper MD Active PREDNISONE 20 MG ORAL TABLET 2 tabs daily for 3 days, 1 tab daily for 3 days, 1/2 tab daily for 2 days PREDNISONE 76224732585 No Longer Active Jose Zhong MD Active AZITHROMYCIN 250 MG ORAL TABLET 2 po qd x 1 day, then 1 po q d x 4 days AZITHROMYCIN 13562119585 No Longer Active Jose Mcwilliams MD Active ZOFRAN ODT 4 MG ORAL TABLET DISINTEGRATING 1 po q6hr PRN Nausea ONDANSETRON 34070786219 No Longer Active Rich Rosales MD Active ZOFRAN 4 MG ORAL TABLET 1 tablet every 4 hours ONDANSETRON HCL 64595624470 No Longer Active Rich Rosales MD Activ e MUCINEX 600 MG ORAL TABLET EXTENDED RELEASE 12 HOUR Ta ke 1-2 tablets every 12 hours GUAIFENESIN 44923245513 No Longer Active Rich Rosales MD Active BACTRIM 400-80 MG ORAL TABLET take one po BID SULFAMETHOXAZOLE-TRIMETHOPRIM 86544374085 No Longer Active Abelardo HERNANDEZ Active AZITHROMYCIN 500 MG ORAL TABLET 1 PO q day x 6 days 20 03/02/23 AZITHROMYCIN 01335243137 No Longer Active Tin HERNANDEZ Activ e ZITHROMAX 250 MG ORAL TABLET 2 po today, then 1 po q days 2-5 20 10/03/08 AZITHROMYCIN 03489909837 No Longer Active Arie Casper MD Active ZITHROMAX 250 MG ORAL TABLET 2 po today, then 1 po q days 2-5 20 09/23/25 AZITHROMYCIN 75259105581 No Longer Active Arie Casper MD Active AMOXICILLIN 500 MG ORAL CAPSULE 1 tab by mouth 3 times daily 201 11/24/09 AMOXICILLIN 21366092457 No Longer Active Arie Casper MD Active BACTRIM DS 800-160 MG ORAL TABLET 1 tab by mouth twice daily 201 11/03/14 TRIMETHOPRIM-SULFAMETHOXAZOLE 38530105506 No Longer Active Fozia Casper MD Active AMOXICILLIN 500 MG ORAL TABLET take 1 tab po TID 08/05 AMOXICILLIN 49003140130 No Longer Active Arie Casper MD Acti ve BACTRIM DS 800-160 MG ORAL TABLET 1 tab by mouth twice daily 201 11/03/14 BACTRIM DS 800-160 MG ORAL TABLET 518114 TRIMETHOPRIM-SULFAMETHOXAZOLE Inactive MUCINEX 600 MG ORAL TABLET EXTENDED RELEASE 12 HOUR Ta ke 1-2 tablets every 12 hours MUCINEX 600 MG ORAL TABLET EXTENDED RELEA SE 12 HOUR GUAIFENESIN Inactive ZOFRAN 4 MG ORAL TABLET 1 tablet every 4 hours ZOFRAN 4 MG ORAL TABLET 202911 ONDANSETRON HCL Inactive ZOFRAN ODT 4 MG ORAL TABLET DISINTEGRATING 1 po q6hr PRN Nausea ZOFRAN ODT 4 MG ORAL TABLET DISINTEGRATING 766898 ONDAN SETRON Inactive CHLORASEPTIC MAX SORE THROAT 15-10 MG MOUTH/THROAT LOZENGE 1 every 2 hours prn CHLORASEPTIC MAX SORE THROAT 15-10 MG MOUTH/THROAT LOZENGE BENZOCAINE-MENTHOL Inactive COMTREX COLD/COUGH DAY/NITE MS 5-2-10-325 MG ORAL 2 caps deja ry 4 hours COMTREX COLD/COUGH DAY/NITE MS 5-2-10-325 MG ORA L [id number] Inactive [facility] TUSSIN COUGH/COLD CF 5-10-100 MG/5ML ORAL LIQUID 2 teasp oons every 4 hours [facility] TUSSIN COUGH/COLD CF 5-10-100 MG/5ML ORAL LI QUID [id number] Inactive IBUPROFEN 800 MG ORAL TABLET take one po Q 8 hours 201 02/01/16 IBUPROFEN 800 MG ORAL TABLET 991232 IBUPROFEN Inactive VITAMINS 0.8 MG ORAL TABLET take 1 tab po qday VITAMINS 0.8 MG ORAL TABLET [id number] E-FA Inactive TESSALON PERLES 100 MG ORAL CAPSULE 1 tablet by mouth 3 times da cory TESSALON PERLES 100 MG ORAL CAPSULE 160866 BENZONATATE Inactive AMOXICILLIN 500 MG ORAL CAPSULE 1 tab by mouth 3 times daily 201 02/21/05 AMOXICILLIN 500 MG ORAL CAPSULE 716642 AMOXICILLIN Inactive GUAIFENESIN-CODEINE 100-10 MG/5ML ORAL SYRUP 2 tsp every 6 hours prn GUAIFENESIN-CODEINE 100-10 MG/5ML ORAL SYRUP 816477 GUAIFENESIN-CODEINE Inactive VICKS DAYQUIL SEVERE COLD/FLU TABLET 1 tab every 6 hours prn 201 02/22/17 VICKS DAYQUIL SEVERE COLD/FLU TABLET PHENYLEPHRI [id number]-RH-PF-APAP TABS Inactive BACTRIM DS 800-160 MG ORAL TABLET 1 twice a day 05/30 BACTRIM DS 800-160 MG ORAL TABLET 492960 SULFAMETHOXAZOLE-TRIMETHOPRIM Inactiv e PROMETHAZINE HCL 25 MG ORAL TABLET 1 four times a day as nee ded for vomiting PROMETHAZINE HCL 25 MG ORAL TABLET 153789 PROMETHAZINE HCL Inactive ZYRTEC ALLERGY 10 MG ORAL CAPSULE 1 po qd ZYRTEC ALLERGY 10 MG ORAL CAPSULE CETIRIZINE HCL Inactive MACROBID 100 MG ORAL CAPSULE 1 cap by mouth twice daily MACROBID 100 MG ORAL CAPSULE 1271555 NITROFURANTOIN MONOHYD MACRO In active LOMOTIL 2.5-0.025 MG ORAL TABLET 1 to 2 four times a day as needed for diarrhea LOMOTIL 2.5-0.025 MG ORAL TABLET 6151904 DIPHENOXYLATE-ATROPINE Inactive CYCLOBENZAPRINE HCL 10 MG ORAL TABLET 1/2 - 1 tablet b y mouth three times daily as needed for muscle spasm/pain CYCLOBEN ZAPRINE HCL 10 MG ORAL TABLET 818982 CYCLOBENZAPRINE HCL Inactive AMOXICILLIN 500 MG ORAL TABLET 2 tabs twice a day for 10 days 20 07/09/11 AMOXICILLIN 500 MG ORAL TABLET 313469 AMOXICILLIN I nactive LOMOTIL 2.5-0.025 MG ORAL TABLET 1 to 2 four times a day as needed for diarrhea LOMOTIL 2.5-0.025 MG ORAL TABLET 0741611 DIPHENOXYLATE-ATROPINE Inactive ZOFRAN 4 MG ORAL TABLET 1 TAB PO Q 6 HRS PRN NAUSEA 20 07/10/15 ZOFRAN 4 MG ORAL TABLET 554853 ONDANSETRON HCL Inactive CITRATE OF MAGNESIA ORAL SOLUTION 1 bottle today for constipatio n CITRATE OF MAGNESIA ORAL SOLUTION 8660678 MAGNESIUM CITR ATE Inactive PROMETHAZINE HCL 12.5 MG ORAL TABLET 1 tablet by mouth every 6 hours as needed for nausea/vomiting PROMETHAZINE HCL 12.5 MG ORA L TABLET 124935 PROMETHAZINE HCL Inactive PREDNISONE 20 MG ORAL TABLET 1 tablet twice daily for 2 days, then 1 tablet once daily for 2 days PREDNISONE 20 MG ORAL TABLET 271059 PREDNISONE Inactive ALPRAZOLAM 0.25 MG ORAL TABLET 1 tablet by mouth every 8 hours as needed for stress ALPRAZOLAM 0.25 MG ORAL TABLET 095902 ALPRA ZOLAM Inactive FLONASE 50 MCG/ACT NASAL SUSPENSION 1 spray each nostr il twice daily for allergies and runny nose until gone FLON ASE 50 MCG/ACT NASAL SUSPENSION 5633594 FLUTICASONE PROPIONATE Inactive PREDNISONE 20 MG ORAL TABLET 1 tablet daily for airway inflammat ion PREDNISONE 20 MG ORAL TABLET 597626 PREDNISONE [place] ctive NAPROXEN 500 MG ORAL TABLET Take 1 tab BID NAPROXEN 500 MG ORAL TABLET 729067 NAPROXEN Inactive ZOLOFT 50 MG ORAL TABLET 1 tablet by mouth daily 12/08 ZOLOFT 50 MG ORAL TABLET 097944 SERTRALINE HCL Inactive LOMOTIL 2.5-0.025 MG ORAL TABLET 1 tab po four times a day as needed for diarrhea LOMOTIL 2.5-0.025 MG ORAL TABLET 9884960 DIPHENOXYLATE-ATROPINE Inactive CETIRIZINE HCL 10 MG ORAL TABLET 1 po qd PRN Allergies CETIRIZINE HCL 10 MG ORAL TABLET 4114195 CETIRIZINE HCL Inactiv e TUSSIONEX PENNKINETIC ER 10-8 MG/5ML ORAL SUSPENSION E XTENDED RELEASE 5ml po q12hr PRN Cough TUSSIONEX PENNKINETI C ER 10-8 MG/5ML ORAL SUSPENSION EXTENDED RELEASE HYDROCOD POLST-CHLORPHEN POLST I nactive NEXPLANON IMPLANT right arm subcutaneously NEXPLANON IMPLANT ETONOGESTREL IMPL Inactive PROTONIX 40 MG ORAL TABLET DELAYED RELEASE 1 po q a.m. PROTONIX 40 MG ORAL TABLET DELAYED RELEASE 871429 PANTOPRAZOLE SODI UM Inactive CHERATUSSIN AC 100-10 MG/5ML ORAL SYRUP 1 tsp by mouth every 4 hours as needed for cough CHERATUSSIN AC 100-10 MG/5ML ORAL SYRUP 9 11252 GUAIFENESIN-CODEINE Inactive GUAIFENESIN DM 400-20 MG ORAL [...] TID 08/05 AMOXICILLIN 500 MG ORAL TABLET 033519 AMOXICILLIN Inactive AMOXICILLIN 500 MG ORAL CAPSULE 1 tab by mouth 3 times daily 201 11/24/09 AMOXICILLIN 500 MG ORAL CAPSULE 683069 AMOXICILLIN Inactive ZITHROMAX 250 MG ORAL TABLET 2 po today, then 1 po q days 2-5 20 09/23/25 ZITHROMAX 250 MG ORAL TABLET 326071 AZITHROMYCIN [place] ctive ZITHROMAX 250 MG ORAL TABLET 2 po today, then 1 po q days 2-5 20 10/03/08 ZITHROMAX 250 MG ORAL TABLET 479206 AZITHROMYCIN [place] ctive AZITHROMYCIN 500 MG ORAL TABLET 1 PO q day x 6 days 20 03/02/23 AZITHROMYCIN 500 MG ORAL TABLET 8585877 AZITHROMYCIN Inactive BACTRIM 400-80 MG ORAL TABLET take one po BID BACTRIM 400- 80 MG ORAL TABLET 356569 SULFAMETHOXAZOLE-TRIMETHOPRIM Inactive AZITHROMYCIN 250 MG ORAL TABLET 2 po qd x 1 day, then 1 po q d x 4 days AZITHROMYCIN 250 MG ORAL TABLET 758560 AZITHROMY ALLISON Inactive PREDNISONE 20 MG ORAL TABLET 2 tabs daily for 3 days, 1 tab daily for 3 days, 1/2 tab daily for 2 days PREDNISONE 20 MG ORAL T ABLET 000606 PREDNISONE Inactive ZITHROMAX 250 MG ORAL TABLET 2 po today, then 1 po q days 2-5 20 06/08/16 ZITHROMAX 250 MG ORAL TABLET 684770 AZITHROMYCIN [place] ctive FLAGYL 500 MG ORAL TABLET 1 tablet by mouth two times daily 2014 FLAGYL 500 MG ORAL TABLET 504936 METRONIDAZOLE Inacti ve AUGMENTIN 875-125 MG ORAL TABLET 1 tab by mouth twice daily with food AUGMENTIN 875-125 MG ORAL TABLET 801322 AMOXICIL ELSA-POT CLAVULANATE Inactive NAPROXEN 500 MG ORAL TABLET one tab PO BID NAPROXEN 500 MG ORAL TABLET 502188 NAPROXEN Inactive PREDNISONE 20 MG ORAL TABLET 2 tabs daily for 3 days, 1 tab daily for 3 days, 1/2 tab daily for 2 days PREDNISONE 20 MG ORAL T ABLET 110703 PREDNISONE Inactive AZITHROMYCIN 250 MG ORAL TABLET 2 po qd x 1 day, then 1 po q d x 4 days AZITHROMYCIN 250 MG ORAL TABLET 251304 AZITHROMY ALLISON Inactive PREDNISONE 20 MG ORAL TABLET 2 tabs daily for 3 days, 1 tab daily for 3 days, 1/2 tab daily for 2 days PREDNISONE 20 MG ORAL T ABLET 307924 PREDNISONE Inactive ZITHROMAX Z-EMIL 250 MG ORAL TABLET 2 today, then 1 daily for 4 d ays ZITHROMAX Z-EMIL 250 MG ORAL TABLET 909624 AZITHROMYCIN Inactive CEFDINIR 300 MG ORAL CAPSULE [...] days PREDNISONE 20 MG ORAL T ABLET 128883 PREDNISONE Inactive BACTRIM DS 800-160 MG ORAL TABLET 1 tab by mouth twice daily 201 05/02/30 BACTRIM DS 800-160 MG ORAL TABLET 518368 TRIMETHOPRIM-SULFAMETHOXAZOLE Inactive ZITHROMAX Z-EMIL 250 MG ORAL TABLET 2 today, then 1 daily for 4 d ays ZITHROMAX Z-EMIL 250 MG ORAL TABLET 110155 AZITHROMYCIN Inactive TAMIFLU 75 MG ORAL CAPSULE 1 po BID x 5 days 0 TAMIFLU 75 MG ORAL CAPSULE 378477 OSELTAMIVIR PHOSPHATE Inactive CEFDINIR 300 MG ORAL CAPSULE 1 po BID x 10 days 01/03 CEFDINIR 300 MG ORAL CAPSULE 20030127 CEFDINIR Inactive ZITHROMAX Z-EMIL 250 MG TABS Take two tablets today and then 1 tablet daily for 4 days ZITHROMAX Z-EMIL 250 MG TABS 330776 AZITHROM YCIN Inactive Advance Directives Directive Description [...] Unit Range Description Lab Report: CBC, Quant [facility] - Hematology leukocyte count, blood 7.8 10^3/MM^3 [...] Report: UADIP W/MICRO, AUTO - Chemis try protein, total urine random Negative mg/dL Negative RBC, urine, dipstick 1+ Negative Lab Report: UADIP W/MICRO, AUTO - Urinal ysis urobilinogen, urine, semiquantitative (dipstick) 0.2 E .U./dL Normal leukocyte esterase, urine, by dipstick 1+ Negative nitrite, urine, semiquantitative Negative Neg ative pH, urine, semiquantitative 5.5 5.0-8.5 specific gravity, urine 1.020 1.000-1.030 appearance, urine Clear Clear urine color Yellow Colorless;Lightyellow;St raw;Yellow glucose, urine, semiquantitative Negative Neg ative ketones, urine, by test strip Negative Negati ve bilirubin, urine Negative Negative Office Visit: Evaluation for infertility - Chemistry human chorionic gonadotropin , urine, qualitative (urine test) Negative Encounters Code Encounter Date Provider Facility CPT-68018 [id number] Vst-Est Level IV 13:30:22 Benedicto Casper MD [facility] CPT-50256 Level 4 Est. Patient 13:05:26 CDT Myrna maldonado MD [facility]-54359 [id number] Vst-Est Level IV 20:50:21 C DT Arie Casper MD [facility] CPT-82065 Level 3 Est. Patient 11:49:34 LEAD BUSINESS SYSTEMS ANALYST Jessica boyd [facility]-96187 Level 3 Est. Patient 14:55:50 LEAD BUSINESS SYSTEMS ANALYST Jose Zhong MD [facility] CPT-86345 Level 3 Est. Patient 10:21:41 LEAD BUSINESS SYSTEMS ANALYST Arie mcqueen MD [facility] CPT-18914 Level 3 Est. Patient 11:35:15 LEAD BUSINESS SYSTEMS ANALYST Arie mcqueen MD [facility]-32130 Level 3 Est. Patient 15:40:28 CDT Brii Are [facility] CPT-51076 Level 3 Est. Patient 16:40:36 CDT Arie mcqueen MD [facility] CPT-62765 Level 4 Est. Patient 15:29:22 LEAD BUSINESS SYSTEMS ANALYST Arie mcqueen MD [facility] CPT-01204 Level 3 Est. Patient 15:18:16 LEAD BUSINESS SYSTEMS ANALYST Jono black [facility] CPT-68563 Level 4 Est. Patient 12:08:40 LEAD BUSINESS SYSTEMS ANALYST Brii Are ll [facility] CPT-69859 Level 3 Est. Patient 09:24:42 CDT Brii Are ll [facility] CPT-46816 Level 3 Est. Patient 09:12:56 CDT Arie mcqueen MD [facility] CPT-46510 Level 3 Est. Patient 16:40:54 CDT Jose Zhong MD [facility] CPT-00944 Level 2 Est. Patient 13:01:13 CDT Brii Are ll [facility] CPT-23097 Level 3 Est. Patient 11:55:30 LEAD BUSINESS SYSTEMS ANALYST Jono black DO [facility]-75365 Level 3 Est. Patient 09:52:36 LEAD BUSINESS SYSTEMS ANALYST Brii escalante APRN [facility] CPT-27074 Level 3 Est. Patient 16:25:33 LEAD BUSINESS SYSTEMS ANALYST Rich Rosales MD [facility]-16186 Level 3 Est. Patient 20:33:55 CDT Arie mcqueen MD [facility] CPT-95032 Level 3 Est. Patient 14:18:20 CDT Rich Rosales MD [facility] CPT-47241 Level 4 Est. Patient 09:34:31 CDT Arie mcqueen MD [facility]-24805 Level 3 Est. Patient 09:08:55 LEAD BUSINESS SYSTEMS ANALYST Liliana vincent MD PhD [facility]-46467 Level 3 Est. Patient 16:44:07 LEAD BUSINESS SYSTEMS ANALYST Arie mcqueen MD [facility] CPT-27813 Level 3 Est. Patient 10:44:27 CDT Arie mcqueen MD [facility] CPT-01411 Level 3 Est. Patient 08:55:41 CDT Jose Zhong MD [facility]-17256 Level 3 Est. Patient 18:37:31 CDT Liliana vincent MD PhD [facility] CPT-40509 Level 3 Est. Patient 14:28:23 CDT Abelardo HERNANDEZ [facility] CPT-30723 Level 3 Est. Patient 15:18:13 LEAD BUSINESS SYSTEMS ANALYST Arie mcqueen MD [facility]-98795 Level 3 Est. Patient 10:11:29 LEAD BUSINESS SYSTEMS ANALYST Arie mcqueen MD [facility] CPT-74161 Level 3 Est. Patient 10:55:57 LEAD BUSINESS SYSTEMS ANALYST Jono black DO [facility] CPT-46952 Level 3 Est. Patient 17:29:05 CDT Arie mcqueen MD [facility] Procedures Code Procedure Name Date Entry Date Standard Desc ription CPT-73770 Nexplanon Removal 15:40:28 CDT CPT-65762 Sono transvag pelvis non OB uterus ovari es cervix - XRAY USE ONLY 08:58:14 LE[employer]S ANALYST CPT-33744 UA w micro - LAB USE ONLY 16:04:56 LEAD BUSINESS SYSTEMS ANALYST 2015 CPT-31937 Wet Prep/GEN - LAB USE ONLY 16:04:56 LEAD BUSINESS SYSTEMS ANALYST 20 08/10/29 CPT-92904 First Vx - Ix admin via ID I M or jet injects without counseling by physician 16:57:10 CDT CPT-99208 Fluzone Preservative Free Intramuscular Suspension 16:57:10 CDT CPT-J0696 Rocephin 1000 mg (Ceftriaxone) 11:49:23 CDT CPT-J1040 Depo Medrol 80 mg (Methyl Prednisolone A cetate) 11:49:23 CDT CPT-J1100 Decadron 8mg (Dexamethasone) 11:49:23 CDT 2 CPT-74954 Abx/Therapy Injection 11:49:23 CDT CPT-38231 Abx/Therapy Injection 11:49:23 CDT CPT-67102 Abd compl w upright 09:07:26 LEAD BUSINESS SYSTEMS ANALYST CPT-46707 Ear Wash 16:12:47 LEAD BUSINESS SYSTEMS ANALYST CPT-OV Office Visit 11:12:01 CDT CPT-OV Office Visit 15:30:23 CDT CPT-51381 Sono pelvis non OB uterus ovaries cervix 15:50:44 CDT CPT-32668 Hand comp min 3V 16:42:32 CDT CPT-66040 Abd compl w upright 12:17:01 CDT CPT-24852 Nexplanon Placement 15:07:39 [employer] CPT-29921 Removal of IUD 15:07:39 [employer] CPT-99065 TB Tubersol 12:09:32 CDT CPT-47812 TB [facility]ersol 13:55:43 CDT
--- OUTSIDE RECORDS SUMMARY | 2020-03-03 07:14 | XMS REPORT | Clinical Summary ---
Author Author Admin, Diamante Marcelo Organization [employer] Address Unknown Phone Unavailable Allergies, Adverse Reactions, [...] implantable subdermal contraceptiv e Active Brii Russ BOOKKEEPER Vaginal bleeding 623.8 Active Arie Casper MD Other specified noninflammatory disorders of vagina Influenza like illness 487.1 Active Jose Mcwilliams MD Influenza with other respiratory manifestations Sinusitis 473.9 Active Jessica Heaton BOOKKEEPER Unspecified sinusitis (chronic) Other mixed anxiety 300.00 [...] FH BREAST CANCER ICD-V16.3 Inactive Jose Marcelo Symptom, cough ICD-786.2 Inactive Liliana Estrada MD PhD Vaginal discharge ICD-623.5 Inactive Liliana lares MD PhD Sinusitis, acute ICD-461.9 Inactive Liliana cheema MD PhD Urinary frequency ICD-788.41 Inactive Jose Zhong MD Vaginal bleeding ICD-623.8 Inactive Jose Mcwilliams MD Fever ICD-780.60 Inactive Liliana Estrada MD PhD 20 08/12/16 Medication List Medication Instructions Start Date Stop Date Generic Name [facility] Status Provider Patient Instruction ALPRAZOLAM 0.25 MG ORAL TABLET 1 tablet by mouth twice a day as needed for stress/anxiety ALPRAZOLAM 72925604332 Active Arie whittington MD Active ESCITALOPRAM OXALATE 10 MG ORAL TABLET take 1 tab po qhs for mod 20 10/04/18 ESCITALOPRAM OXALATE 75945715103 Active Arie Casper MD Active TUSSIONEX PENNKINETIC ER 10-8 MG/5ML ORAL SUSPENSION E XTENDED RELEASE 5ml po q12hr PRN Cough HYDROCOD POLST-CHLORPHEN POLST 5 5336513637 No Longer Active Myrna Roberto MD Active ZITHROMAX Z-EMIL 250 MG TABS Take two tablets today and then 1 tablet daily for 4 days AZITHROMYCIN 92117077385 No Longer Active Flaco Rosales MD Active GUAIFENESIN DM 400-20 MG ORAL TABLET 1 pill by mouth t wice daily, if needed for cough DEXTROMETHORPHAN-GUAIFENESIN 02194221265 No Longer Active Rich Rosales MD Active CEFDINIR 300 MG ORAL CAPSULE 1 po BID x 10 days CEFDINIR 22249726995 No Longer Active Jessica Heaton APRN Active CHERATUSSIN AC 100-10 MG/5ML ORAL SYRUP 1 tsp by mouth every 4 hours as needed for cough GUAIFENESIN-CODEINE 96788382911 No Longe r Active Jessica Heaton APRN Active TAMIFLU 75 MG ORAL CAPSULE 1 po BID x 5 days 0 OSELTAMIVIR PHOSPHATE 19683109921 No Longer Active Jose Zhong MD Activ e ZITHROMAX Z-EMIL 250 MG ORAL TABLET 2 today, then 1 daily for 4 d ays AZITHROMYCIN 68850173561 No Longer Active Arie Casper MD Active PROTONIX 40 MG ORAL TABLET DELAYED RELEASE 1 po q a.m. PANTOPRAZOLE SODIUM 05014947796 No Longer Active Arie Casper MD Active BACTRIM DS 800-160 MG ORAL TABLET 1 tab by mouth twice daily 201 05/02/30 TRIMETHOPRIM-SULFAMETHOXAZOLE 31058039533 No Longer Active R [facility] Active NEXPLANON IMPLANT right arm subcutaneously ETONOGESTREL IMPL 07235882202 No Longer Active Brii Russ APRN Active TUSSIONEX PENNKINETIC ER 10-8 MG/5ML ORAL SUSPENSION E XTENDED RELEASE 5ml po q12hr PRN Cough HYDROCOD POLST-CHLORPHEN POLST 5 5718818058 No Longer Active Brii Russ APRN Active CETIRIZINE HCL 10 MG ORAL TABLET 1 po qd PRN Allergies CETIRIZINE HCL 01290072655 No Longer Active Brii Russ APRN Activ e PREDNISONE 20 MG ORAL TABLET 2 tabs daily for 3 days, 1 tab daily for 3 days, 1/2 tab daily for 2 days PREDNISONE 13864987156 No Longer Active Arie Casper MD Active LOMOTIL 2.5-0.025 MG ORAL TABLET 1 tab po four times a day as needed for diarrhea DIPHENOXYLATE-ATROPINE 70351240288 No Lo nger Active Arie Casper MD Active ZOLOFT 50 MG ORAL TABLET 1 tablet by mouth daily 12/08 SERTRALINE HCL 10457037273 No Longer Active Arie Casper MD Ac tive NAPROXEN 500 MG ORAL TABLET Take 1 tab BID NAPR OXEN 49886902457 No Longer Active Arie Casper MD Active CEFDINIR 300 MG ORAL CAPSULE 1 po BID x 10 days CEFDINIR 40296980370 No Longer Active Brii Russ APRN Active PREDNISONE 20 MG ORAL TABLET 1 tablet daily for airway inflammat ion PREDNISONE 09707468826 No Longer Active Brii Russ APRN A ctive CEFDINIR 300 MG ORAL CAPSULE 1 po BID x 10 days CEFDINIR 94001103091 No Longer Active Jono Gagnon DO Active FLONASE 50 MCG/ACT NASAL SUSPENSION 1 spray each nostr il twice daily for allergies and runny nose until gone FLUT ICASONE PROPIONATE 77265309965 No Longer Active Jono Gagnon DO Active ALPRAZOLAM 0.25 MG ORAL TABLET 1 tablet by mouth every 8 hours as needed for stress ALPRAZOLAM 89214311153 No Longer Active Jono Gagnon DO Active ZITHROMAX Z-EMIL 250 MG ORAL TABLET 2 today, then 1 daily for 4 d ays AZITHROMYCIN 52394712510 No Longer Active Arie Casper MD Active PREDNISONE 20 MG ORAL TABLET 2 tabs daily for 3 days, 1 tab daily for 3 days, 1/2 tab daily for 2 days PREDNISONE 84512772792 No Longer Active Brii Russ APRN Active PREDNISONE 20 MG ORAL TABLET 1 tablet twice daily for 2 days, then 1 tablet once daily for 2 days PREDNISONE 75206508554 No Longer Active Brii Russ APRN Active PROMETHAZINE HCL 12.5 MG ORAL TABLET 1 tablet by mouth every 6 hours as needed for nausea/vomiting PROMETHAZINE HCL 86135543334 No L onger Active Jono Gagnon DO Active CITRATE OF MAGNESIA ORAL SOLUTION 1 bottle today for constipatio n MAGNESIUM CITRATE 82253669374 No Longer Active Jono Gagnon DO Active ZOFRAN 4 MG ORAL TABLET 1 TAB PO Q 6 HRS PRN NAUSEA 07/10/15 ONDANSETRON HCL 53064846335 No Longer Active Brii Russ APRN Acti ve LOMOTIL 2.5-0.025 MG ORAL TABLET 1 to 2 four times a day as needed for diarrhea DIPHENOXYLATE-ATROPINE 41905740064 No Longer Active January Russ APRN Active AMOXICILLIN 500 MG ORAL TABLET 2 tabs twice a day for 10 days 07/09/11 AMOXICILLIN 46888887056 No Longer Active Brii Russ APRN Active CYCLOBENZAPRINE HCL 10 MG ORAL TABLET 1/2 - 1 tablet b y mouth three times daily as needed for muscle spasm/pain CYCLOBENZAPRINE HCL 41839924923 No Longer Active Arie Casper MD Active LOMOTIL 2.5-0.025 MG ORAL TABLET 1 to 2 four times a day as needed for diarrhea DIPHENOXYLATE-ATROPINE 02577318417 No Longer Active Fozia Casper MD Active MACROBID 100 MG ORAL CAPSULE 1 cap by mouth twice daily NITROFURANTOIN MONOHYD MACRO 03138057476 No Longer Active Arie Casper MD Active ZYRTEC ALLERGY 10 MG ORAL CAPSULE 1 po qd CE TIRIZINE HCL 73114391278 No Longer Active Arie Casper MD Active AZITHROMYCIN 250 MG ORAL TABLET 2 po qd x 1 day, then 1 po q d x 4 days AZITHROMYCIN 59459522783 No Longer Active Jessica salgado BOOKKEEPER Active PREDNISONE 20 MG ORAL TABLET 2 tabs daily for 3 days, 1 tab daily for 3 days, 1/2 tab daily for 2 days PREDNISONE 22389655721 No Longer Active Jillarlen Heaton BOOKKEEPER Active PROMETHAZINE HCL 25 MG ORAL TABLET 1 four times a day as nee ded for vomiting PROMETHAZINE HCL 57139178491 No Longer Active Myrna Roberto MD Active BACTRIM DS 800-160 MG ORAL TABLET 1 twice a day 05/30 SULFAMETHOXAZOLE-TRIMETHOPRIM 77699354902 No Longer Active Myrna Roberto MD Active VICKS DAYQUIL SEVERE COLD/FLU TABLET 1 tab every 6 hours prn 201 02/22/17 [id number]-MY-RM-APAP TABS 89997540706 No Longer Active Chris Roberto MD Active GUAIFENESIN-CODEINE 100-10 MG/5ML ORAL SYRUP 2 tsp every 6 hours prn GUAIFENESIN-CODEINE 80218364049 No Longer Active Myrna Roberto MD Active NAPROXEN 500 MG ORAL TABLET one tab PO BID NAPR OXEN 55003860071 No Longer Active Myrna Roberto MD Active AUGMENTIN 875-125 MG ORAL TABLET 1 tab by mouth twice daily with food AMOXICILLIN-POT CLAVULANATE 69272196881 No Longer Act zaid Liliana Estrada MD PhD Active AMOXICILLIN 500 MG ORAL CAPSULE 1 tab by mouth 3 times daily 201 02/21/05 AMOXICILLIN 38853803243 No Longer Active Liliana Estrada MD PhD Active TESSALON PERLES 100 MG ORAL CAPSULE 1 tablet by mouth 3 times da cory BENZONATATE 00562559622 No Longer Active Liliana Estrada MD PhD Active FLAGYL 500 MG ORAL TABLET 1 tablet by mouth two times daily 2014 METRONIDAZOLE 55393927716 No Longer Active Nilam Doran tive ZITHROMAX 250 MG ORAL TABLET 2 po today, then 1 po q days 2-5 20 06/08/16 AZITHROMYCIN 57501298676 No Longer Active Arie Casper MD Active VITAMINS 0.8 MG ORAL TABLET take 1 tab po qday [id number] 62017369961 No Longer Active Arie Casper MD Active IBUPROFEN 800 MG ORAL TABLET take one po Q 8 hours 201 02/01/16 IBUPROFEN 21112200093 No Longer Active Arie Casper MD Acti ve [facility] TUSSIN COUGH/COLD CF 5-10-100 MG/5ML ORAL LIQUID 2 teasp oons every 4 hours [id number] 41629165515 No Longer Active Blaine Casper MD Active COMTREX COLD/COUGH DAY/NITE MS 5-2-10-325 MG ORAL 2 caps deja ry 4 hours [id number] 16641513818 No Longer Active Da aleksandra Casper MD Active CHLORASEPTIC MAX SORE THROAT 15-10 MG MOUTH/THROAT LOZENGE 1 every 2 hours prn BENZOCAINE-MENTHOL 82891933755 No Longer Active Arie Casper MD Active PREDNISONE 20 MG ORAL TABLET 2 tabs daily for 3 days, 1 tab daily for 3 days, 1/2 tab daily for 2 days PREDNISONE 85905052451 No Longer Active Jose Zhong MD Active AZITHROMYCIN 250 MG ORAL TABLET 2 po qd x 1 day, then 1 po q d x 4 days AZITHROMYCIN 38785253843 No Longer Active Jose Mcwilliams MD Active ZOFRAN ODT 4 MG ORAL TABLET DISINTEGRATING 1 po q6hr PRN Nausea ONDANSETRON 78160823444 No Longer Active Rich Rosales MD Active ZOFRAN 4 MG ORAL TABLET 1 tablet every 4 hours ONDANSETRON HCL 50246342308 No Longer Active Rich Rosales MD Activ e MUCINEX 600 MG ORAL TABLET EXTENDED RELEASE 12 HOUR Ta ke 1-2 tablets every 12 hours GUAIFENESIN 51398400336 No Longer Active Rich Rosales MD Active BACTRIM 400-80 MG ORAL TABLET take one po BID SULFAMETHOXAZOLE-TRIMETHOPRIM 97849796120 No Longer Active Abelardo HERNANDEZ Active AZITHROMYCIN 500 MG ORAL TABLET 1 PO q day x 6 days 20 03/02/23 AZITHROMYCIN 40482667573 No Longer Active iTn HERNANDEZ Activ e ZITHROMAX 250 MG ORAL TABLET 2 po today, then 1 po q days 2-5 20 10/03/08 AZITHROMYCIN 59101924072 No Longer Active Arie Casper MD Active ZITHROMAX 250 MG ORAL TABLET 2 po today, then 1 po q days 2-5 20 09/23/25 AZITHROMYCIN 10618605446 No Longer Active Arie Casper MD Active AMOXICILLIN 500 MG ORAL CAPSULE 1 tab by mouth 3 times daily 201 11/24/09 AMOXICILLIN 50399095295 No Longer Active Arie Casper MD Active BACTRIM DS 800-160 MG ORAL TABLET 1 tab by mouth twice daily 201 11/03/14 TRIMETHOPRIM-SULFAMETHOXAZOLE 73275556389 No Longer Active Fozia Casper MD Active AMOXICILLIN 500 MG ORAL TABLET take 1 tab po TID 08/05 AMOXICILLIN 53661292317 No Longer Active Arie Casper MD Acti ve BACTRIM DS 800-160 MG ORAL TABLET 1 tab by mouth twice daily 201 11/03/14 BACTRIM DS 800-160 MG ORAL TABLET 227935 TRIMETHOPRIM-SULFAMETHOXAZOLE Inactive MUCINEX 600 MG ORAL TABLET EXTENDED RELEASE 12 HOUR Ta ke 1-2 tablets every 12 hours MUCINEX 600 MG ORAL TABLET EXTENDED RELEA SE 12 HOUR GUAIFENESIN Inactive ZOFRAN 4 MG ORAL TABLET 1 tablet every 4 hours ZOFRAN 4 MG ORAL TABLET 961151 ONDANSETRON HCL Inactive ZOFRAN ODT 4 MG ORAL TABLET DISINTEGRATING 1 po q6hr PRN Nausea ZOFRAN ODT 4 MG ORAL TABLET DISINTEGRATING 215375 ONDAN SETRON Inactive CHLORASEPTIC MAX SORE THROAT 15-10 MG MOUTH/THROAT LOZENGE 1 every 2 hours prn CHLORASEPTIC MAX SORE THROAT 15-10 MG MOUTH/THROAT LOZENGE BENZOCAINE-MENTHOL Inactive COMTREX COLD/COUGH DAY/NITE MS 5-2-10-325 MG ORAL 2 caps deja ry 4 hours COMTREX COLD/COUGH DAY/NITE MS 5-2-10-325 MG ORA L [id number] Inactive [facility] TUSSIN COUGH/COLD CF 5-10-100 MG/5ML ORAL LIQUID 2 teasp oons every 4 hours [facility] TUSSIN COUGH/COLD CF 5-10-100 MG/5ML ORAL LI QUID [id number] Inactive IBUPROFEN 800 MG ORAL TABLET take one po Q 8 hours 201 02/01/16 IBUPROFEN 800 MG ORAL TABLET 906177 IBUPROFEN Inactive VITAMINS 0.8 MG ORAL TABLET take 1 tab po qday VITAMINS 0.8 MG ORAL TABLET [id number] E-FA Inactive TESSALON PERLES 100 MG ORAL CAPSULE 1 tablet by mouth 3 times da cory TESSALON PERLES 100 MG ORAL CAPSULE 149225 BENZONATATE Inactive AMOXICILLIN 500 MG ORAL CAPSULE 1 tab by mouth 3 times daily 201 02/21/05 AMOXICILLIN 500 MG ORAL CAPSULE 510911 AMOXICILLIN Inactive GUAIFENESIN-CODEINE 100-10 MG/5ML ORAL SYRUP 2 tsp every 6 hours prn GUAIFENESIN-CODEINE 100-10 MG/5ML ORAL SYRUP 414599 GUAIFENESIN-CODEINE Inactive VICKS DAYQUIL SEVERE COLD/FLU TABLET 1 tab every 6 hours prn 201 02/22/17 VICKS DAYQUIL SEVERE COLD/FLU TABLET PHENYLEPHRI [id number]-[id number]-APAP TABS Inactive BACTRIM DS 800-160 MG ORAL TABLET 1 twice a day 05/30 BACTRIM DS 800-160 MG ORAL TABLET 408674 SULFAMETHOXAZOLE-TRIMETHOPRIM Inactiv e PROMETHAZINE HCL 25 MG ORAL TABLET 1 four times a day as nee ded for vomiting PROMETHAZINE HCL 25 MG ORAL TABLET 028478 PROMETHAZINE HCL Inactive ZYRTEC ALLERGY 10 MG ORAL CAPSULE 1 po qd ZYRTEC ALLERGY 10 MG ORAL CAPSULE CETIRIZINE HCL Inactive MACROBID 100 MG ORAL CAPSULE 1 cap by mouth twice daily MACROBID 100 MG ORAL CAPSULE 8706102 NITROFURANTOIN MONOHYD MACRO In active LOMOTIL 2.5-0.025 MG ORAL TABLET 1 to 2 four times a day as needed for diarrhea LOMOTIL 2.5-0.025 MG ORAL TABLET 8615187 DIPHENOXYLATE-ATROPINE Inactive CYCLOBENZAPRINE HCL 10 MG ORAL TABLET 1/2 - 1 tablet b y mouth three times daily as needed for muscle spasm/pain CYCLOBEN ZAPRINE HCL 10 MG ORAL TABLET 465566 CYCLOBENZAPRINE HCL Inactive AMOXICILLIN 500 MG ORAL TABLET 2 tabs twice a day for 10 days 20 07/09/11 AMOXICILLIN 500 MG ORAL TABLET 502322 AMOXICILLIN I nactive LOMOTIL 2.5-0.025 MG ORAL TABLET 1 to 2 four times a day as needed for diarrhea LOMOTIL 2.5-0.025 MG ORAL TABLET 4454830 DIPHENOXYLATE-ATROPINE Inactive ZOFRAN 4 MG ORAL TABLET 1 TAB PO Q 6 HRS PRN NAUSEA 07/10/15 ZOFRAN 4 MG ORAL TABLET 544656 ONDANSETRON HCL Inactive CITRATE OF MAGNESIA ORAL SOLUTION 1 bottle today for constipatio n CITRATE OF MAGNESIA ORAL SOLUTION 3412403 MAGNESIUM CITR ATE Inactive PROMETHAZINE HCL 12.5 MG ORAL TABLET 1 tablet by mouth every 6 hours as needed for nausea/vomiting PROMETHAZINE HCL 12.5 MG ORA L TABLET 800199 PROMETHAZINE HCL Inactive PREDNISONE 20 MG ORAL TABLET 1 tablet twice daily for 2 days, then 1 tablet once daily for 2 days PREDNISONE 20 MG ORAL TABLET 174033 PREDNISONE Inactive ALPRAZOLAM 0.25 MG ORAL TABLET 1 tablet by mouth every 8 hours as needed for stress ALPRAZOLAM 0.25 MG ORAL TABLET 506307 ALPRA ZOLAM Inactive FLONASE 50 MCG/ACT NASAL SUSPENSION 1 spray each nostr il twice daily for allergies and runny nose until gone FLON ASE 50 MCG/ACT NASAL SUSPENSION 8010534 FLUTICASONE PROPIONATE Inactive PREDNISONE 20 MG ORAL TABLET 1 tablet daily for airway inflammat ion PREDNISONE 20 MG ORAL TABLET 186031 PREDNISONE Arlen ctive NAPROXEN 500 MG ORAL TABLET Take 1 tab BID NAPROXEN 500 MG ORAL TABLET 453573 NAPROXEN Inactive ZOLOFT 50 MG ORAL TABLET 1 tablet by mouth daily 12/08 ZOLOFT 50 MG ORAL TABLET 572263 SERTRALINE HCL Inactive LOMOTIL 2.5-0.025 MG ORAL TABLET 1 tab po four times a day as needed for diarrhea LOMOTIL 2.5-0.025 MG ORAL TABLET 1034038 DIPHENOXYLATE-ATROPINE Inactive CETIRIZINE HCL 10 MG ORAL TABLET 1 po qd PRN Allergies CETIRIZINE HCL 10 MG ORAL TABLET 1346797 CETIRIZINE HCL Inactiv e TUSSIONEX PENNKINETIC ER 10-8 MG/5ML ORAL SUSPENSION E XTENDED RELEASE 5ml po q12hr PRN Cough TUSSIONEX PENNKINETI C ER 10-8 MG/5ML ORAL SUSPENSION EXTENDED RELEASE HYDROCOD POLST-CHLORPHEN POLST I nactive NEXPLANON IMPLANT right arm subcutaneously NEXPLANON IMPLANT ETONOGESTREL IMPL Inactive PROTONIX 40 MG ORAL TABLET DELAYED RELEASE 1 po q a.m. PROTONIX 40 MG ORAL TABLET DELAYED RELEASE 500202 PANTOPRAZOLE SODI UM Inactive CHERATUSSIN AC 100-10 MG/5ML ORAL SYRUP 1 tsp by mouth every 4 hours as needed for cough CHERATUSSIN AC 100-10 MG/5ML ORAL SYRUP 9 20490 GUAIFENESIN-CODEINE Inactive GUAIFENESIN DM 400-20 MG ORAL [...] TID 08/05 AMOXICILLIN 500 MG ORAL TABLET 513425 AMOXICILLIN Inactive AMOXICILLIN 500 MG ORAL CAPSULE 1 tab by mouth 3 times daily 201 11/24/09 AMOXICILLIN 500 MG ORAL CAPSULE 279413 AMOXICILLIN Inactive ZITHROMAX 250 MG ORAL TABLET 2 po today, then 1 po q days 2-5 20 09/23/25 ZITHROMAX 250 MG ORAL TABLET 761279 AZITHROMYCIN Arlen ctive ZITHROMAX 250 MG ORAL TABLET 2 po today, then 1 po q days 2-5 20 10/03/08 ZITHROMAX 250 MG ORAL TABLET 526792 AZITHROMYCIN Arlen ctive AZITHROMYCIN 500 MG ORAL TABLET 1 PO q day x 6 days 20 03/02/23 AZITHROMYCIN 500 MG ORAL TABLET 9316898 AZITHROMYCIN Inactive BACTRIM 400-80 MG ORAL TABLET take one po BID BACTRIM 400- 80 MG ORAL TABLET 303217 SULFAMETHOXAZOLE-TRIMETHOPRIM Inactive AZITHROMYCIN 250 MG ORAL TABLET 2 po qd x 1 day, then 1 po q d x 4 days AZITHROMYCIN 250 MG ORAL TABLET 205310 AZITHROMY ALLISON Inactive PREDNISONE 20 MG ORAL TABLET 2 tabs daily for 3 days, 1 tab daily for 3 days, 1/2 tab daily for 2 days PREDNISONE 20 MG ORAL T ABLET 453082 PREDNISONE Inactive ZITHROMAX 250 MG ORAL TABLET 2 po today, then 1 po q days 2-5 20 06/08/16 ZITHROMAX 250 MG ORAL TABLET 437454 AZITHROMYCIN Arlen ctive FLAGYL 500 MG ORAL TABLET 1 tablet by mouth two times daily 2014 FLAGYL 500 MG ORAL TABLET 403747 METRONIDAZOLE Inacti ve AUGMENTIN 875-125 MG ORAL TABLET 1 tab by mouth twice daily with food AUGMENTIN 875-125 MG ORAL TABLET 591609 AMOXICIL ELSA-POT CLAVULANATE Inactive NAPROXEN 500 MG ORAL TABLET one tab PO BID NAPROXEN 500 MG ORAL TABLET 300446 NAPROXEN Inactive PREDNISONE 20 MG ORAL TABLET 2 tabs daily for 3 days, 1 tab daily for 3 days, 1/2 tab daily for 2 days PREDNISONE 20 MG ORAL T ABLET 413396 PREDNISONE Inactive AZITHROMYCIN 250 MG ORAL TABLET 2 po qd x 1 day, then 1 po q d x 4 days AZITHROMYCIN 250 MG ORAL TABLET 066692 AZITHROMY ALLISON Inactive PREDNISONE 20 MG ORAL TABLET 2 tabs daily for 3 days, 1 tab daily for 3 days, 1/2 tab daily for 2 days PREDNISONE 20 MG ORAL T ABLET 929593 PREDNISONE Inactive ZITHROMAX Z-EMIL 250 MG ORAL TABLET 2 today, then 1 daily for 4 d ays ZITHROMAX Z-EMIL 250 MG ORAL TABLET 258453 AZITHROMYCIN Inactive CEFDINIR 300 MG ORAL CAPSULE 1 po BID x 10 days 12/18 CEFDINIR 300 MG ORAL CAPSULE 20030127 CEFDINIR Inactive CEFDINIR 300 MG ORAL CAPSULE 1 po BID x 10 days CEFDINIR 300 MG ORAL CAPSULE 308492 CEFDINIR Inactive PREDNISONE 20 MG ORAL TABLET 2 tabs daily for 3 days, 1 tab daily for 3 days, 1/2 tab daily for 2 days PREDNISONE 20 MG ORAL T ABLET 325981 PREDNISONE Inactive BACTRIM DS 800-160 MG ORAL TABLET 1 tab by mouth twice daily 201 05/02/30 BACTRIM DS 800-160 MG ORAL TABLET 864045 TRIMETHOPRIM-SULFAMETHOXAZOLE Inactive ZITHROMAX Z-EMIL 250 MG ORAL TABLET 2 today, then 1 daily for 4 d ays ZITHROMAX Z-EMIL 250 MG ORAL TABLET 781978 AZITHROMYCIN Inactive TAMIFLU 75 MG ORAL CAPSULE 1 po BID x 5 days 0 TAMIFLU 75 MG ORAL CAPSULE 413990 OSELTAMIVIR PHOSPHATE Inactive CEFDINIR 300 MG ORAL CAPSULE 1 po BID x 10 days 01/03 CEFDINIR 300 MG ORAL CAPSULE 998444 CEFDINIR Inactive ZITHROMAX Z-EMIL 250 MG TABS Take two tablets today and then 1 tablet daily for 4 days ZITHROMAX Z-EMIL 250 MG TABS 987377 AZITHROM YCIN Inactive Advance Directives Directive Description [...] Unit Range Description Lab Report: CBC, Quant [facility] - Hematology leukocyte count, blood 7.8 10^3/MM^3 [...] Negative Encounters Code Encounter Date Provider Facility CPT-79764 [id number] Vst-Est Level IV 13:30:22 Benedicto Casper MD [facility] CPT-50764 Level 4 Est. Patient 13:05:26 CDT Myrna maldonado MD [facility]-87937 [id number] Vst-Est Level IV 20:50:21 C DT Arie Casper MD [facility]-60658 Level 3 Est. Patient 11:49:34 BINDERY CUTTER OPERATOR Jessica boyd [facility] CPT-63663 Level 3 Est. Patient 14:55:50 BINDERY CUTTER OPERATOR Jose Zhong MD [facility]-72451 Level 3 Est. Patient 10:21:41 BINDERY CUTTER OPERATOR Arie mcqueen MD [facility] CPT-55767 Level 3 Est. Patient 11:35:15 BINDERY CUTTER OPERATOR Arie mcqueen MD [facility]-95419 Level 3 Est. Patient 15:40:28 CDT Brii Are [facility] CPT-62560 Level 3 Est. Patient 16:40:36 CDT Arie mcqueen MD [facility] CPT-21285 Level 4 Est. Patient 15:29:22 BINDERY CUTTER OPERATOR Arie mcqueen MD [facility] CPT-83766 Level 3 Est. Patient 15:18:16 BINDERY CUTTER OPERATOR Jono black [facility] CPT-50124 Level 4 Est. Patient 12:08:40 BINDERY CUTTER OPERATOR Brii Are ll [facility] CPT-17951 Level 3 Est. Patient 09:24:42 CDT Brii Are ll [facility] CPT-28463 Level 3 Est. Patient 09:12:56 CDT Arie mcqueen MD [facility] CPT-94573 Level 3 Est. Patient 16:40:54 CDT Jose Zhong MD [facility] CPT-11852 Level 2 Est. Patient 13:01:13 CDT Brii Are ll [facility] CPT-90563 Level 3 Est. Patient 11:55:30 BINDERY CUTTER OPERATOR Jono black [facility] CPT-31644 Level 3 Est. Patient 09:52:36 BINDERY CUTTER OPERATOR Brii Yepez boris CABRERA [facility] CPT-63726 Level 3 Est. Patient 16:25:33 BINDERY CUTTER OPERATOR Rich Rosales MD [facility]-98241 Level 3 Est. Patient 20:33:55 CDT Arie mcqueen MD [facility] CPT-28069 Level 3 Est. Patient 14:18:20 CDT Rich Rosales MD [facility] CPT-69777 Level 4 Est. Patient 09:34:31 CDT Arie mcqueen MD [facility]-32161 Level 3 Est. Patient 09:08:55 BINDERY CUTTER OPERATOR Liliana vincent MD PhD [facility] CPT-85943 Level 3 Est. Patient 16:44:07 BINDERY CUTTER OPERATOR Arie mcqueen MD [facility] CPT-49934 Level 3 Est. Patient 10:44:27 CDT Arie mcqueen MD [facility] CPT-67800 Level 3 Est. Patient 08:55:41 CDT Jose Zhong MD [facility]-26195 Level 3 Est. Patient 18:37:31 CDT Liliana vincent MD [facility]-93315 Level 3 Est. Patient 14:28:23 CDT Abelardo HERNANDEZ [facility] CPT-40074 Level 3 Est. Patient 15:18:13 BINDERY CUTTER OPERATOR Arie mcqueen MD [facility] CPT-56877 Level 3 Est. Patient 10:11:29 BINDERY CUTTER OPERATOR Arie mcqueen MD [facility] CPT-11452 Level 3 Est. Patient 10:55:57 BINDERY CUTTER OPERATOR Jono black DO [facility] CPT-61699 Level 3 Est. Patient 17:29:05 CDT Arie mcqueen MD [facility] Procedures Code Procedure Name Date Entry Date Standard Desc ription CPT-82249 Nexplanon Removal 15:40:28 CDT CPT-77567 Sono transvag pelvis non OB uterus ovari es cervix - XRAY USE ONLY 08:58:14 BINDERY CUTTER OPERATOR CPT-88525 UA w micro - LAB USE ONLY 16:04:56 BINDERY CUTTER OPERATOR 2015 CPT-80104 Wet Prep/GEN - LAB USE ONLY 16:04:56 BINDERY CUTTER OPERATOR 20 08/10/29 CPT-26886 First Vx - Ix admin via ID I M or jet injects without counseling by physician 16:57:10 CDT CPT-62231 Fluzone Preservative Free Intramuscular Suspension 16:57:10 CDT CPT-J0696 Rocephin 1000 mg (Ceftriaxone) 11:49:23 CDT CPT-J1040 Depo Medrol 80 mg (Methyl Prednisolone A cetate) 11:49:23 CDT CPT-J1100 Decadron 8mg (Dexamethasone) 11:49:23 CDT 2 CPT-13402 Abx/Therapy Injection 11:49:23 CDT CPT-79579 Abx/Therapy Injection 11:49:23 CDT CPT-83766 Abd compl w upright 09:07:26 BINDERY CUTTER OPERATOR CPT-28477 Ear Wash 16:12:47 BINDERY CUTTER OPERATOR CPT-OV Office Visit 11:12:01 CDT CPT-OV Office Visit 15:30:23 CDT CPT-13912 Sono pelvis non OB uterus ovaries cervix 15:50:44 CDT CPT-26079 Hand comp min 3V 16:42:32 CDT CPT-16316 Abd compl w upright 12:17:01 CDT CPT-31815 Nexplanon Placement 15:07:39 BINDERY CUTTER OPERATOR CPT-60220 Removal of IUD 15:07:39 BINDERY CUTTER OPERATOR CPT-79078 TB Tubersol 12:09:32 CDT CPT-88998 TB Tubersol 13:55:43 CDT
--- OUTSIDE RECORDS SUMMARY | 2020-03-03 07:14 | XMS REPORT | Clinical Summary ---
Author Author Admin, Diamante Marcelo Organization [employer] Address Unknown Phone Unavailable Allergies, Adverse Reactions, [...] implantable subdermal contraceptiv e Active Brii Russ [facility]OSP[facility] MEDICAL ASSISTANT Vaginal bleeding 623.8 Active Arie Casper MD Other specified noninflammatory disorders of vagina Influenza like illness 487.1 Active Jose Mcwilliams MD Influenza with other respiratory manifestations Sinusitis 473.9 Active Jessica Heaton HOSPITAL MEDICAL ASSISTANT Unspecified sinusitis (chronic) Other mixed anxiety 300.00 [...] a day as needed for stress/anxiety ALPRAZOLAM 91412373485 Active Arie whittington MD Active ESCITALOPRAM OXALATE 10 MG ORAL TABLET take 1 tab po qhs for mod 20 10/04/18 ESCITALOPRAM OXALATE 85191641287 Active Arie Casper MD Active TUSSIONEX PENNKINETIC ER 10-8 MG/5ML ORAL SUSPENSION E XTENDED RELEASE 5ml po q12hr PRN Cough HYDROCOD POLST-CHLORPHEN POLST 5 3547845940 No Longer Active Myrna Roberto MD Active ZITHROMAX Z-EMIL 250 MG TABS Take two tablets today and then 1 tablet daily for 4 days AZITHROMYCIN 98399384252 No Longer Active Flaco Rosales MD Active GUAIFENESIN DM 400-20 MG ORAL TABLET 1 pill by mouth t wice daily, if needed for cough DEXTROMETHORPHAN-GUAIFENESIN 22282355923 No Longer Active Rich Rosales MD Active CEFDINIR 300 MG ORAL CAPSULE 1 po BID x 10 days CEFDINIR 27773281599 No Longer Active Jessica Heaton APRN Active CHERATUSSIN AC 100-10 MG/5ML ORAL SYRUP 1 tsp by mouth every 4 hours as needed for cough GUAIFENESIN-CODEINE 54592125494 No Longe r Active Jessica Heaton APRN Active TAMIFLU 75 MG ORAL CAPSULE 1 po BID x 5 days 0 OSELTAMIVIR PHOSPHATE 78479184455 No Longer Active Jose Zhong MD Activ e ZITHROMAX Z-EMIL 250 MG ORAL TABLET 2 today, then 1 daily for 4 d ays AZITHROMYCIN 22619817066 No Longer Active Arie Casper MD Active PROTONIX 40 MG ORAL TABLET DELAYED RELEASE 1 po q a.m. PANTOPRAZOLE SODIUM 80984636538 No Longer Active Arie Casper MD Active BACTRIM DS 800-160 MG ORAL TABLET 1 tab by mouth twice daily 201 05/02/30 TRIMETHOPRIM-SULFAMETHOXAZOLE 18525440546 No Longer Active R [facility] Active NEXPLANON IMPLANT right arm subcutaneously ETONOGESTREL IMPL 89833079308 No Longer Active Brii Russ APRN Active TUSSIONEX PENNKINETIC ER 10-8 MG/5ML ORAL SUSPENSION E XTENDED RELEASE 5ml po q12hr PRN Cough HYDROCOD POLST-CHLORPHEN POLST 5 2158452381 No Longer Active Brii Russ APRN Active CETIRIZINE HCL 10 MG ORAL TABLET 1 po qd PRN Allergies CETIRIZINE HCL 70353014997 No Longer Active Brii Russ APRN Activ e PREDNISONE 20 MG ORAL TABLET 2 tabs daily for 3 days, 1 tab daily for 3 days, 1/2 tab daily for 2 days PREDNISONE 39402091908 No Longer Active Arie Casper MD Active LOMOTIL 2.5-0.025 MG ORAL TABLET 1 tab po four times a day as needed for diarrhea DIPHENOXYLATE-ATROPINE 61477118789 No Lo nger Active Arie Casper MD Active ZOLOFT 50 MG ORAL TABLET 1 tablet by mouth daily 12/08 SERTRALINE HCL 38003285131 No Longer Active Arie Casper MD Ac tive NAPROXEN 500 MG ORAL TABLET Take 1 tab BID NAPR OXEN 86473219453 No Longer Active Arie Casper MD Active CEFDINIR 300 MG ORAL CAPSULE 1 po BID x 10 days CEFDINIR 52177019086 No Longer Active Brii Russ APRN Active PREDNISONE 20 MG ORAL TABLET 1 tablet daily for airway inflammat ion PREDNISONE 38554298261 No Longer Active Brii Russ APRN A ctive CEFDINIR 300 MG ORAL CAPSULE 1 po BID x 10 days CEFDINIR 55684663490 No Longer Active Jono Gagnon DO Active FLONASE 50 MCG/ACT NASAL SUSPENSION 1 spray each nostr il twice daily for allergies and runny nose until gone FLUT ICASONE PROPIONATE 94578255718 No Longer Active Jono Gagnon DO Active ALPRAZOLAM 0.25 MG ORAL TABLET 1 tablet by mouth every 8 hours as needed for stress ALPRAZOLAM 72778599480 No Longer Active Jono Gagnon DO Active ZITHROMAX Z-EMIL 250 MG ORAL TABLET 2 today, then 1 daily for 4 d ays AZITHROMYCIN 06864405275 No Longer Active Arie Casper MD Active PREDNISONE 20 MG ORAL TABLET 2 tabs daily for 3 days, 1 tab daily for 3 days, 1/2 tab daily for 2 days PREDNISONE 33118001690 No Longer Active Brii Russ APRN Active PREDNISONE 20 MG ORAL TABLET 1 tablet twice daily for 2 days, then 1 tablet once daily for 2 days PREDNISONE 07190163754 No Longer Active Brii Russ APRN Active PROMETHAZINE HCL 12.5 MG ORAL TABLET 1 tablet by mouth every 6 hours as needed for nausea/vomiting PROMETHAZINE HCL 78679873417 No L onger Active Jono Gagnon DO Active CITRATE OF MAGNESIA ORAL SOLUTION 1 bottle today for constipatio n MAGNESIUM CITRATE 54383659400 No Longer Active Jono Gagnon DO Active ZOFRAN 4 MG ORAL TABLET 1 TAB PO Q 6 HRS PRN NAUSEA 07/10/15 ONDANSETRON HCL 54210750952 No Longer Active Brii Russ APRN Acti ve LOMOTIL 2.5-0.025 MG ORAL TABLET 1 to 2 four times a day as needed for diarrhea DIPHENOXYLATE-ATROPINE 15391062721 No Longer Active January Russ APRN Active AMOXICILLIN 500 MG ORAL TABLET 2 tabs twice a day for 10 days 07/09/11 AMOXICILLIN 11218173809 No Longer Active Brii Russ APRN Active CYCLOBENZAPRINE HCL 10 MG ORAL TABLET 1/2 - 1 tablet b y mouth three times daily as needed for muscle spasm/pain CYCLOBENZAPRINE HCL 39951172510 No Longer Active Arie Casper MD Active LOMOTIL 2.5-0.025 MG ORAL TABLET 1 to 2 four times a day as needed for diarrhea DIPHENOXYLATE-ATROPINE 88835954112 No Longer Active Fozia Casper MD Active MACROBID 100 MG ORAL CAPSULE 1 cap by mouth twice daily NITROFURANTOIN MONOHYD MACRO 69187021715 No Longer Active Arie Casper MD Active ZYRTEC ALLERGY 10 MG ORAL CAPSULE 1 po qd CE TIRIZINE HCL 29803397390 No Longer Active Arie Casper MD Active AZITHROMYCIN 250 MG ORAL TABLET 2 po qd x 1 day, then 1 po q d x 4 days AZITHROMYCIN 78429771917 No Longer Active Jessica salgado HOSPITAL MEDICAL ASSISTANT Active PREDNISONE 20 MG ORAL TABLET 2 tabs daily for 3 days, 1 tab daily for 3 days, 1/2 tab daily for 2 days PREDNISONE 67257464693 No Longer Active Jillarlen Heaton HOSPITAL MEDICAL ASSISTANT Active PROMETHAZINE HCL 25 MG ORAL TABLET 1 four times a day as nee ded for vomiting PROMETHAZINE HCL 72378503791 No Longer Active Myrna Roberto MD Active BACTRIM DS 800-160 MG ORAL TABLET 1 twice a day 05/30 SULFAMETHOXAZOLE-TRIMETHOPRIM 95188292439 No Longer Active Myrna Roberto MD Active VICKS DAYQUIL SEVERE COLD/FLU TABLET 1 tab every 6 hours prn 201 02/22/17 [id number] TABS 71528926255 No Longer Active Chris Roberto MD Active GUAIFENESIN-CODEINE 100-10 MG/5ML ORAL SYRUP 2 tsp every 6 hours prn GUAIFENESIN-CODEINE 09712720390 No Longer Active Myrna Roberto MD Active NAPROXEN 500 MG ORAL TABLET one tab PO BID NAPR OXEN 32053084706 No Longer Active Myrna Roberto MD Active AUGMENTIN 875-125 MG ORAL TABLET 1 tab by mouth twice daily with food AMOXICILLIN-POT CLAVULANATE 68881249054 No Longer Act zaid Liliana Estrada MD PhD Active AMOXICILLIN 500 MG ORAL CAPSULE 1 tab by mouth 3 times daily 201 02/21/05 AMOXICILLIN 33093689966 No Longer Active Liliana Estrada MD PhD Active TESSALON PERLES 100 MG ORAL CAPSULE 1 tablet by mouth 3 times da cory BENZONATATE 53400845385 No Longer Active Liliana Estrada MD PhD Active FLAGYL 500 MG ORAL TABLET 1 tablet by mouth two times daily 2014 METRONIDAZOLE 73327086468 No Longer Active Nilam Doran tive ZITHROMAX 250 MG ORAL TABLET 2 po today, then 1 po q days 2-5 20 06/08/16 AZITHROMYCIN 52867561483 No Longer Active Arie Casper MD Active VITAMINS 0.8 MG ORAL TABLET take 1 tab po qday [id number] 13020180511 No Longer Active Arie Casper MD Active IBUPROFEN 800 MG ORAL TABLET take one po Q 8 hours 201 02/01/16 IBUPROFEN 17661098121 No Longer Active Arie Casper MD Acti ve [facility] TUSSIN COUGH/COLD CF 5-10-100 MG/5ML ORAL LIQUID 2 teasp oons every 4 hours [id number] 12905629611 No Longer Active Blaine Casper MD Active COMTREX COLD/COUGH DAY/NITE MS 5-2-10-325 MG ORAL 2 caps edja ry 4 hours [id number] 72856229062 No Longer Active Da aleksandra Casper MD Active CHLORASEPTIC MAX SORE THROAT 15-10 MG MOUTH/THROAT LOZENGE 1 every 2 hours prn BENZOCAINE-MENTHOL 47100264136 No Longer Active Arie Casper MD Active PREDNISONE 20 MG ORAL TABLET 2 tabs daily for 3 days, 1 tab daily for 3 days, 1/2 tab daily for 2 days PREDNISONE 66460328794 No Longer Active Jose Zhong MD Active AZITHROMYCIN 250 MG ORAL TABLET 2 po qd x 1 day, then 1 po q d x 4 days AZITHROMYCIN 14337217498 No Longer Active Jose Mcwilliams MD Active ZOFRAN ODT 4 MG ORAL TABLET DISINTEGRATING 1 po q6hr PRN Nausea ONDANSETRON 39374711279 No Longer Active Rich Rosales MD Active ZOFRAN 4 MG ORAL TABLET 1 tablet every 4 hours ONDANSETRON HCL 28334604493 No Longer Active Rich Rosales MD Activ e MUCINEX 600 MG ORAL TABLET EXTENDED RELEASE 12 HOUR Ta ke 1-2 tablets every 12 hours GUAIFENESIN 47879610077 No Longer Active Rich Rosales MD Active BACTRIM 400-80 MG ORAL TABLET take one po BID SULFAMETHOXAZOLE-TRIMETHOPRIM 89991565571 No Longer Active Abelardo HERNANDEZ Active AZITHROMYCIN 500 MG ORAL TABLET 1 PO q day x 6 days 20 03/02/23 AZITHROMYCIN 86326874698 No Longer Active Tin HERNANDEZ Activ e ZITHROMAX 250 MG ORAL TABLET 2 po today, then 1 po q days 2-5 20 10/03/08 AZITHROMYCIN 44655959314 No Longer Active Arie Casper MD Active ZITHROMAX 250 MG ORAL TABLET 2 po today, then 1 po q days 2-5 20 09/23/25 AZITHROMYCIN 45746438177 No Longer Active Arie Casper MD Active AMOXICILLIN 500 MG ORAL CAPSULE 1 tab by mouth 3 times daily 201 11/24/09 AMOXICILLIN 32923305932 No Longer Active Arie Casper MD Active BACTRIM DS 800-160 MG ORAL TABLET 1 tab by mouth twice daily 201 11/03/14 TRIMETHOPRIM-SULFAMETHOXAZOLE 88344456306 No Longer Active Fozia Casper MD Active AMOXICILLIN 500 MG ORAL TABLET take 1 tab po TID 08/05 AMOXICILLIN 97330733191 No Longer Active Arie Casper MD Acti ve BACTRIM DS 800-160 MG ORAL TABLET 1 tab by mouth twice daily 201 11/03/14 BACTRIM DS 800-160 MG ORAL TABLET 043725 TRIMETHOPRIM-SULFAMETHOXAZOLE Inactive MUCINEX 600 MG ORAL TABLET EXTENDED RELEASE 12 HOUR Ta ke 1-2 tablets every 12 hours MUCINEX 600 MG ORAL TABLET EXTENDED RELEA SE 12 HOUR GUAIFENESIN Inactive ZOFRAN 4 MG ORAL TABLET 1 tablet every 4 hours ZOFRAN 4 MG ORAL TABLET 938910 ONDANSETRON HCL Inactive ZOFRAN ODT 4 MG ORAL TABLET DISINTEGRATING 1 po q6hr PRN Nausea ZOFRAN ODT 4 MG ORAL TABLET DISINTEGRATING 160726 ONDAN SETRON Inactive CHLORASEPTIC MAX SORE THROAT 15-10 MG MOUTH/THROAT LOZENGE 1 every 2 hours prn CHLORASEPTIC MAX SORE THROAT 15-10 MG MOUTH/THROAT LOZENGE BENZOCAINE-MENTHOL Inactive COMTREX COLD/COUGH DAY/NITE MS 5-2-10-325 MG ORAL 2 caps deja ry 4 hours COMTREX COLD/COUGH DAY/NITE MS 5-2-10-325 MG ORA L [id number] Inactive [facility] TUSSIN COUGH/COLD CF 5-10-100 MG/5ML ORAL LIQUID 2 teasp oons every 4 hours [facility] TUSSIN COUGH/COLD CF 5-10-100 MG/5ML ORAL LI QUID [id number] Inactive IBUPROFEN 800 MG ORAL TABLET take one po Q 8 hours 201 02/01/16 IBUPROFEN 800 MG ORAL TABLET 813168 IBUPROFEN Inactive VITAMINS 0.8 MG ORAL TABLET take 1 tab po qday VITAMINS 0.8 MG ORAL TABLET [id number] E-FA Inactive TESSALON PERLES 100 MG ORAL CAPSULE 1 tablet by mouth 3 times da cory TESSALON PERLES 100 MG ORAL CAPSULE 105473 BENZONATATE Inactive AMOXICILLIN 500 MG ORAL CAPSULE 1 tab by mouth 3 times daily 201 02/21/05 AMOXICILLIN 500 MG ORAL CAPSULE 496487 AMOXICILLIN Inactive GUAIFENESIN-CODEINE 100-10 MG/5ML ORAL SYRUP 2 tsp every 6 hours prn GUAIFENESIN-CODEINE 100-10 MG/5ML ORAL SYRUP 849128 GUAIFENESIN-CODEINE Inactive VICKS DAYQUIL SEVERE COLD/FLU TABLET 1 tab every 6 hours prn 201 02/22/17 VICKS DAYQUIL SEVERE COLD/FLU TABLET PHENYLEPHRI [id number] TABS Inactive BACTRIM DS 800-160 MG ORAL TABLET 1 twice a day 05/30 BACTRIM DS 800-160 MG ORAL TABLET 114402 SULFAMETHOXAZOLE-TRIMETHOPRIM Inactiv e PROMETHAZINE HCL 25 MG ORAL TABLET 1 four times a day as nee ded for vomiting PROMETHAZINE HCL 25 MG ORAL TABLET 267343 PROMETHAZINE HCL Inactive ZYRTEC ALLERGY 10 MG ORAL CAPSULE 1 po qd ZYRTEC ALLERGY 10 MG ORAL CAPSULE CETIRIZINE HCL Inactive MACROBID 100 MG ORAL CAPSULE 1 cap by mouth twice daily MACROBID 100 MG ORAL CAPSULE 9884593 NITROFURANTOIN MONOHYD MACRO In active LOMOTIL 2.5-0.025 MG ORAL TABLET 1 to 2 four times a day as needed for diarrhea LOMOTIL 2.5-0.025 MG ORAL TABLET 4111672 DIPHENOXYLATE-ATROPINE Inactive CYCLOBENZAPRINE HCL 10 MG ORAL TABLET 1/2 - 1 tablet b y mouth three times daily as needed for muscle spasm/pain CYCLOBEN ZAPRINE HCL 10 MG ORAL TABLET 850529 CYCLOBENZAPRINE HCL Inactive AMOXICILLIN 500 MG ORAL TABLET 2 tabs twice a day for 10 days 20 07/09/11 AMOXICILLIN 500 MG ORAL TABLET 934106 AMOXICILLIN I nactive LOMOTIL 2.5-0.025 MG ORAL TABLET 1 to 2 four times a day as needed for diarrhea LOMOTIL 2.5-0.025 MG ORAL TABLET 7493049 DIPHENOXYLATE-ATROPINE Inactive ZOFRAN 4 MG ORAL TABLET 1 TAB PO Q 6 HRS PRN NAUSEA 07/10/15 ZOFRAN 4 MG ORAL TABLET 895132 ONDANSETRON HCL Inactive CITRATE OF MAGNESIA ORAL SOLUTION 1 bottle today for constipatio n CITRATE OF MAGNESIA ORAL SOLUTION 1562617 MAGNESIUM CITR ATE Inactive PROMETHAZINE HCL 12.5 MG ORAL TABLET 1 tablet by mouth every 6 hours as needed for nausea/vomiting PROMETHAZINE HCL 12.5 MG ORA L TABLET 860143 PROMETHAZINE HCL Inactive PREDNISONE 20 MG ORAL TABLET 1 tablet twice daily for 2 days, then 1 tablet once daily for 2 days PREDNISONE 20 MG ORAL TABLET 933212 PREDNISONE Inactive ALPRAZOLAM 0.25 MG ORAL TABLET 1 tablet by mouth every 8 hours as needed for stress ALPRAZOLAM 0.25 MG ORAL TABLET 889845 ALPRA ZOLAM Inactive FLONASE 50 MCG/ACT NASAL SUSPENSION 1 spray each nostr il twice daily for allergies and runny nose until gone FLON ASE 50 MCG/ACT NASAL SUSPENSION 6991221 FLUTICASONE PROPIONATE Inactive PREDNISONE 20 MG ORAL TABLET 1 tablet daily for airway inflammat ion PREDNISONE 20 MG ORAL TABLET 417679 PREDNISONE Arlen ctive NAPROXEN 500 MG ORAL TABLET Take 1 tab BID NAPROXEN 500 MG ORAL TABLET 460030 NAPROXEN Inactive ZOLOFT 50 MG ORAL TABLET 1 tablet by mouth daily 12/08 ZOLOFT 50 MG ORAL TABLET 740810 SERTRALINE HCL Inactive LOMOTIL 2.5-0.025 MG ORAL TABLET 1 tab po four times a day as needed for diarrhea LOMOTIL 2.5-0.025 MG ORAL TABLET 7353941 DIPHENOXYLATE-ATROPINE Inactive CETIRIZINE HCL 10 MG ORAL TABLET 1 po qd PRN Allergies CETIRIZINE HCL 10 MG ORAL TABLET 1998014 CETIRIZINE HCL Inactiv e TUSSIONEX PENNKINETIC ER 10-8 MG/5ML ORAL SUSPENSION E XTENDED RELEASE 5ml po q12hr PRN Cough TUSSIONEX PENNKINETI C ER 10-8 MG/5ML ORAL SUSPENSION EXTENDED RELEASE HYDROCOD POLST-CHLORPHEN POLST I nactive NEXPLANON IMPLANT right arm subcutaneously NEXPLANON IMPLANT ETONOGESTREL IMPL Inactive PROTONIX 40 MG ORAL TABLET DELAYED RELEASE 1 po q a.m. PROTONIX 40 MG ORAL TABLET DELAYED RELEASE 768937 PANTOPRAZOLE SODI UM Inactive CHERATUSSIN AC 100-10 MG/5ML ORAL SYRUP 1 tsp by mouth every 4 hours as needed for cough CHERATUSSIN AC 100-10 MG/5ML ORAL SYRUP 9 83499 GUAIFENESIN-CODEINE Inactive GUAIFENESIN DM 400-20 MG ORAL [...] TID 08/05 AMOXICILLIN 500 MG ORAL TABLET 645307 AMOXICILLIN Inactive AMOXICILLIN 500 MG ORAL CAPSULE 1 tab by mouth 3 times daily 201 11/24/09 AMOXICILLIN 500 MG ORAL CAPSULE 903920 AMOXICILLIN Inactive ZITHROMAX 250 MG ORAL TABLET 2 po today, then 1 po q days 2-5 20 09/23/25 ZITHROMAX 250 MG ORAL TABLET 201761 AZITHROMYCIN Arlen ctive ZITHROMAX 250 MG ORAL TABLET 2 po today, then 1 po q days 2-5 20 10/03/08 ZITHROMAX 250 MG ORAL TABLET 505944 AZITHROMYCIN Arlen ctive AZITHROMYCIN 500 MG ORAL TABLET 1 PO q day x 6 days 20 03/02/23 AZITHROMYCIN 500 MG ORAL TABLET 6868688 AZITHROMYCIN Inactive BACTRIM 400-80 MG ORAL TABLET take one po BID BACTRIM 400- 80 MG ORAL TABLET 247202 SULFAMETHOXAZOLE-TRIMETHOPRIM Inactive AZITHROMYCIN 250 MG ORAL TABLET 2 po qd x 1 day, then 1 po q d x 4 days AZITHROMYCIN 250 MG ORAL TABLET 823150 AZITHROMY ALLISON Inactive PREDNISONE 20 MG ORAL TABLET 2 tabs daily for 3 days, 1 tab daily for 3 days, 1/2 tab daily for 2 days PREDNISONE 20 MG ORAL T ABLET 322705 PREDNISONE Inactive ZITHROMAX 250 MG ORAL TABLET 2 po today, then 1 po q days 2-5 20 06/08/16 ZITHROMAX 250 MG ORAL TABLET 094567 AZITHROMYCIN Arlen ctive FLAGYL 500 MG ORAL TABLET 1 tablet by mouth two times daily 2014 FLAGYL 500 MG ORAL TABLET 535603 METRONIDAZOLE Inacti ve AUGMENTIN 875-125 MG ORAL TABLET 1 tab by mouth twice daily with food AUGMENTIN 875-125 MG ORAL TABLET 439901 AMOXICIL ELSA-POT CLAVULANATE Inactive NAPROXEN 500 MG ORAL TABLET one tab PO BID NAPROXEN 500 MG ORAL TABLET 532808 NAPROXEN Inactive PREDNISONE 20 MG ORAL TABLET 2 tabs daily for 3 days, 1 tab daily for 3 days, 1/2 tab daily for 2 days PREDNISONE 20 MG ORAL T ABLET 035709 PREDNISONE Inactive AZITHROMYCIN 250 MG ORAL TABLET 2 po qd x 1 day, then 1 po q d x 4 days AZITHROMYCIN 250 MG ORAL TABLET 509149 AZITHROMY ALLISON Inactive PREDNISONE 20 MG ORAL TABLET 2 tabs daily for 3 days, 1 tab daily for 3 days, 1/2 tab daily for 2 days PREDNISONE 20 MG ORAL T ABLET 774879 PREDNISONE Inactive ZITHROMAX Z-EMIL 250 MG ORAL TABLET 2 today, then 1 daily for 4 d ays ZITHROMAX Z-EMIL 250 MG ORAL TABLET 962751 AZITHROMYCIN Inactive CEFDINIR 300 MG ORAL CAPSULE 1 po BID x 10 days 12/18 CEFDINIR 300 MG ORAL CAPSULE 20030127 CEFDINIR Inactive CEFDINIR 300 MG ORAL CAPSULE 1 po BID x 10 days CEFDINIR 300 MG ORAL CAPSULE 982262 CEFDINIR Inactive PREDNISONE 20 MG ORAL TABLET 2 tabs daily for 3 days, 1 tab daily for 3 days, 1/2 tab daily for 2 days PREDNISONE 20 MG ORAL T ABLET 274085 PREDNISONE Inactive BACTRIM DS 800-160 MG ORAL TABLET 1 tab by mouth twice daily 201 05/02/30 BACTRIM DS 800-160 MG ORAL TABLET 048591 TRIMETHOPRIM-SULFAMETHOXAZOLE Inactive ZITHROMAX Z-EMIL 250 MG ORAL TABLET 2 today, then 1 daily for 4 d ays ZITHROMAX Z-EMIL 250 MG ORAL TABLET 913983 AZITHROMYCIN Inactive TAMIFLU 75 MG ORAL CAPSULE 1 po BID x 5 days 0 TAMIFLU 75 MG ORAL CAPSULE 559374 OSELTAMIVIR PHOSPHATE Inactive CEFDINIR 300 MG ORAL CAPSULE 1 po BID x 10 days 01/03 CEFDINIR 300 MG ORAL CAPSULE 952683 CEFDINIR Inactive ZITHROMAX Z-EMIL 250 MG TABS Take two tablets today and then 1 tablet daily for 4 days ZITHROMAX Z-EMIL 250 MG TABS 154917 AZITHROM YCIN Inactive Advance Directives Directive Description [...] Unit Range Description Lab Report: CBC, Quant [facility] [place]ology leukocyte count, blood 7.8 10^3/MM^3 [...] Negative Encounters Code Encounter Date Provider Facility CPT-28146 [id number] Vst-Est Level IV 13:30:22 Benedicto Casper MD [facility] CPT-97676 Level 4 Est. Patient 13:05:26 CDT Myrna maldonado MD [facility]-97181 [id number] Vst-Est Level IV 20:50:21 C DT Arie Casper MD [facility]-94452 Level 3 Est. Patient 11:49:34 CUT OFF SAW OPERATOR METAL Jessica boyd [facility] CPT-31229 Level 3 Est. Patient 14:55:50 CUT OFF SAW OPERATOR METAL Jose Zhong MD [facility]-86797 Level 3 Est. Patient 10:21:41 CUT OFF SAW OPERATOR METAL Arie mcqueen MD [facility] CPT-65570 Level 3 Est. Patient 11:35:15 CUT OFF SAW OPERATOR METAL Arie mcqueen MD [facility]-77103 Level 3 Est. Patient 15:40:28 CDT Brii Are [facility] CPT-08558 Level 3 Est. Patient 16:40:36 CDT Arie mcqueen MD [facility] CPT-45744 Level 4 Est. Patient 15:29:22 CUT OFF SAW OPERATOR METAL Arie mcqueen MD [facility] CPT-12651 Level 3 Est. Patient 15:18:16 CUT OFF SAW OPERATOR METAL Jono black [facility] CPT-93600 Level 4 Est. Patient 12:08:40 CUT OFF SAW OPERATOR METAL Brii Are ll [facility] CPT-36978 Level 3 Est. Patient 09:24:42 CDT Brii Are ll [facility] CPT-07722 Level 3 Est. Patient 09:12:56 CDT Arie mcqueen MD [facility] CPT-88415 Level 3 Est. Patient 16:40:54 CDT Jose Zhong MD [facility] CPT-45434 Level 2 Est. Patient 13:01:13 CDT Brii Are ll [facility] CPT-57128 Level 3 Est. Patient 11:55:30 CUT OFF SAW OPERATOR METAL Jono black [facility] CPT-04170 Level 3 Est. Patient 09:52:36 CUT OFF SAW OPERATOR METAL Brii Yepez boris CABRERA [facility] CPT-73712 Level 3 Est. Patient 16:25:33 CUT OFF SAW OPERATOR METAL Rich Rosales MD [facility]-05316 Level 3 Est. Patient 20:33:55 CDT Arie mcqueen MD [facility] CPT-11381 Level 3 Est. Patient 14:18:20 CDT Rich Rosales MD [facility] CPT-55321 Level 4 Est. Patient 09:34:31 CDT Arie mcqueen MD [facility]-37627 Level 3 Est. Patient 09:08:55 CUT OFF SAW OPERATOR METAL Liliana vincent MD PhD [facility] CPT-47300 Level 3 Est. Patient 16:44:07 CUT OFF SAW OPERATOR METAL Arie mcqueen MD [facility] CPT-30936 Level 3 Est. Patient 10:44:27 CDT Arie mcqueen MD [facility] CPT-94477 Level 3 Est. Patient 08:55:41 CDT Jose Zhong MD [facility]-61682 Level 3 Est. Patient 18:37:31 CDT Liliana vincent MD [facility]-93027 Level 3 Est. Patient 14:28:23 CDT Abelardo HERNANDEZ [facility] CPT-73689 Level 3 Est. Patient 15:18:13 CUT OFF SAW OPERATOR METAL Arie mcqueen MD [facility] CPT-28812 Level 3 Est. Patient 10:11:29 CUT OFF SAW OPERATOR METAL Arie mcqueen MD [facility] CPT-17527 Level 3 Est. Patient 10:55:57 CUT OFF SAW OPERATOR METAL Jono black DO [facility] CPT-09444 Level 3 Est. Patient 17:29:05 CDT Arie mcqueen MD [facility] Procedures Code Procedure Name Date Entry Date Standard Desc ription CPT-43835 Nexplanon Removal 15:40:28 CDT CPT-46018 Sono transvag pelvis non OB uterus ovari es cervix - XRAY USE ONLY 08:58:14 CUT OFF SAW OPERATOR METAL CPT-12358 UA w micro - LAB USE ONLY 16:04:56 CUT OFF SAW OPERATOR METAL 2015 CPT-55808 Wet Prep/GEN - LAB USE ONLY 16:04:56 CUT OFF SAW OPERATOR METAL 20 08/10/29 CPT-56726 First Vx - Ix admin via ID I M or jet injects without counseling by physician 16:57:10 CDT CPT-12240 Fluzone Preservative Free Intramuscular Suspension 16:57:10 CDT CPT-J0696 Rocephin 1000 mg (Ceftriaxone) 11:49:23 CDT CPT-J1040 Depo Medrol 80 mg (Methyl Prednisolone A cetate) 11:49:23 CDT CPT-J1100 Decadron 8mg (Dexamethasone) 11:49:23 CDT 2 CPT-56744 Abx/Therapy Injection 11:49:23 CDT CPT-96024 Abx/Therapy Injection 11:49:23 CDT CPT-88727 Abd compl w upright 09:07:26 CUT OFF SAW OPERATOR METAL CPT-94586 Ear Wash 16:12:47 CUT OFF SAW OPERATOR METAL CPT-OV Office Visit 11:12:01 CDT CPT-OV Office Visit 15:30:23 CDT CPT-85598 Sono pelvis non OB uterus ovaries cervix 15:50:44 CDT CPT-20270 Hand comp min 3V 16:42:32 CDT CPT-26258 Abd compl w upright 12:17:01 CDT CPT-98472 Nexplanon Placement 15:07:39 CUT OFF SAW OPERATOR METAL CPT-92145 Removal of IUD 15:07:39 CUT OFF SAW OPERATOR METAL CPT-04204 TB Tubersol 12:09:32 CDT CPT-29628 TB Tubersol 13:55:43 CDT
[2020-03-03] MEDS ORDERED: LACTATED RINGERS 1,000 ML IV SCH (07:15)
--- OUTSIDE RECORDS SUMMARY | 2020-03-03 07:15 | XMS REPORT | Clinical Summary ---
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 Vaginal bleeding 623.8 Active Arie Casper MD Other specified noninflammatory disorders of vagina Influenza like illness 487.1 Active Jose Mcwilliams MD Influenza with other respiratory manifestations Sinusitis 473.9 Active Jessica Heaton HYDRAULIC PRESS OPERATOR Unspecified sinusitis (chronic) Other mixed anxiety [...] a day as needed for stress/anxiety ALPRAZOLAM 55337885914 Active Arie whittington MD Active ESCITALOPRAM OXALATE 10 MG ORAL TABLET take 1 tab po qhs for mod 20 10/04/18 ESCITALOPRAM OXALATE 58896244870 Active Arie Casper MD Active TUSSIONEX PENNKINETIC ER 10-8 MG/5ML ORAL SUSPENSION E XTENDED RELEASE 5ml po q12hr PRN Cough HYDROCOD POLST-CHLORPHEN POLST 5 5848869175 No Longer Active Myrna Roberto MD Active ZITHROMAX Z-EMIL 250 MG TABS Take two tablets today and then 1 tablet daily for 4 days AZITHROMYCIN 15507230957 No Longer Active Flaco Rosales MD Active GUAIFENESIN DM 400-20 MG ORAL TABLET 1 pill by mouth t wice daily, if needed for cough DEXTROMETHORPHAN-GUAIFENESIN 02354296503 No Longer Active Rich Rosales MD Active CEFDINIR 300 MG ORAL CAPSULE 1 po BID x 10 days CEFDINIR 30322039937 No Longer Active Jessica Heaton APRN Active CHERATUSSIN AC 100-10 MG/5ML ORAL SYRUP 1 tsp by mouth every 4 hours as needed for cough GUAIFENESIN-CODEINE 35828978861 No Longe r Active Jessica Heaton APRN Active TAMIFLU 75 MG ORAL CAPSULE 1 po BID x 5 days 0 OSELTAMIVIR PHOSPHATE 15322730998 No Longer Active Jose Zhong MD Activ e ZITHROMAX Z-EMIL 250 MG ORAL TABLET 2 today, then 1 daily for 4 d ays AZITHROMYCIN 89155045209 No Longer Active Arie Casper MD Active PROTONIX 40 MG ORAL TABLET DELAYED RELEASE 1 po q a.m. PANTOPRAZOLE SODIUM 11387737277 No Longer Active Arie Casper MD Active BACTRIM DS 800-160 MG ORAL TABLET 1 tab by mouth twice daily 201 05/02/30 TRIMETHOPRIM-SULFAMETHOXAZOLE 55553466597 No Longer Active R [facility] Ty Active NEXPLANON IMPLANT right arm subcutaneously ETONOGESTREL IMPL 77676698457 No Longer Active Brii Russ APRN Active TUSSIONEX PENNKINETIC ER 10-8 MG/5ML ORAL SUSPENSION E XTENDED RELEASE 5ml po q12hr PRN Cough HYDROCOD POLST-CHLORPHEN POLST 5 3372242704 No Longer Active Brii Russ APRN Active CETIRIZINE HCL 10 MG ORAL TABLET 1 po qd PRN Allergies CETIRIZINE HCL 60057497512 No Longer Active Brii Russ APRN Activ e PREDNISONE 20 MG ORAL TABLET 2 tabs daily for 3 days, 1 tab daily for 3 days, 1/2 tab daily for 2 days PREDNISONE 54923184090 No Longer Active Arie Casper MD Active LOMOTIL 2.5-0.025 MG ORAL TABLET 1 tab po four times a day as needed for diarrhea DIPHENOXYLATE-ATROPINE 82202524119 No Lo nger Active Arie Casper MD Active ZOLOFT 50 MG ORAL TABLET 1 tablet by mouth daily 12/08 SERTRALINE HCL 17313101978 No Longer Active Arie Casper MD Ac tive NAPROXEN 500 MG ORAL TABLET Take 1 tab BID NAPR OXEN 84379996714 No Longer Active Arie Casper MD Active CEFDINIR 300 MG ORAL CAPSULE 1 po BID x 10 days CEFDINIR 95314563751 No Longer Active Brii Rsus APRN Active PREDNISONE 20 MG ORAL TABLET 1 tablet daily for airway inflammat ion PREDNISONE 09332099584 No Longer Active Brii Russ APRN A ctive CEFDINIR 300 MG ORAL CAPSULE 1 po BID x 10 days CEFDINIR 50730430838 No Longer Active Jono Gagnon DO Active FLONASE 50 MCG/ACT NASAL SUSPENSION 1 spray each nostr il twice daily for allergies and runny nose until gone FLUT ICASONE PROPIONATE 92806931740 No Longer Active Jono Gagnon DO Active ALPRAZOLAM 0.25 MG ORAL TABLET 1 tablet by mouth every 8 hours as needed for stress ALPRAZOLAM 85706791335 No Longer Active Jono Gagnon DO Active ZITHROMAX Z-EMIL 250 MG ORAL TABLET 2 today, then 1 daily for 4 d ays AZITHROMYCIN 03208720874 No Longer Active Arie Casper MD Active PREDNISONE 20 MG ORAL TABLET 2 tabs daily for 3 days, 1 tab daily for 3 days, 1/2 tab daily for 2 days PREDNISONE 09634386082 No Longer Active Brii Russ APRN Active PREDNISONE 20 MG ORAL TABLET 1 tablet twice daily for 2 days, then 1 tablet once daily for 2 days PREDNISONE 54604177331 No Longer Active Brii Russ APRN Active PROMETHAZINE HCL 12.5 MG ORAL TABLET 1 tablet by mouth every 6 hours as needed for nausea/vomiting PROMETHAZINE HCL 33740686253 No L onger Active Jono Gagnon DO Active CITRATE OF MAGNESIA ORAL SOLUTION 1 bottle today for constipatio n MAGNESIUM CITRATE 03291347349 No Longer Active Jono Gagnon DO Active ZOFRAN 4 MG ORAL TABLET 1 TAB PO Q 6 HRS PRN NAUSEA 07/10/15 ONDANSETRON HCL 79570237068 No Longer Active Brii Russ APRN Acti ve LOMOTIL 2.5-0.025 MG ORAL TABLET 1 to 2 four times a day as needed for diarrhea DIPHENOXYLATE-ATROPINE 84801668156 No Longer Active January Russ APRN Active AMOXICILLIN 500 MG ORAL TABLET 2 tabs twice a day for 10 days 07/09/11 AMOXICILLIN 65585910669 No Longer Active Brii Russ APRN Active CYCLOBENZAPRINE HCL 10 MG ORAL TABLET 1/2 - 1 tablet b y mouth three times daily as needed for muscle spasm/pain CYCLOBENZAPRINE HCL 34904655661 No Longer Active Arie Casper MD Active LOMOTIL 2.5-0.025 MG ORAL TABLET 1 to 2 four times a day as needed for diarrhea DIPHENOXYLATE-ATROPINE 94893093792 No Longer Active Fozia Casper MD Active MACROBID 100 MG ORAL CAPSULE 1 cap by mouth twice daily NITROFURANTOIN MONOHYD MACRO 25323383089 No Longer Active Arie Casper MD Active ZYRTEC ALLERGY 10 MG ORAL CAPSULE 1 po qd CE TIRIZINE HCL 52583227905 No Longer Active Arie Casper MD Active AZITHROMYCIN 250 MG ORAL TABLET 2 po qd x 1 day, then 1 po q d x 4 days AZITHROMYCIN 15641017997 No Longer Active Jessica salgado HYDRAULIC PRESS OPERATOR Active PREDNISONE 20 MG ORAL TABLET 2 tabs daily for 3 days, 1 tab daily for 3 days, 1/2 tab daily for 2 days PREDNISONE 33287632916 No Longer Active Jillarlen Heaton HYDRAULIC PRESS OPERATOR Active PROMETHAZINE HCL 25 MG ORAL TABLET 1 four times a day as nee ded for vomiting PROMETHAZINE HCL 28651444501 No Longer Active Myrna Roberto MD Active BACTRIM DS 800-160 MG ORAL TABLET 1 twice a day 05/30 SULFAMETHOXAZOLE-TRIMETHOPRIM 41796155100 No Longer Active Myrna Roberto MD Active VICKS DAYQUIL SEVERE COLD/FLU TABLET 1 tab every 6 hours prn 201 02/22/17 [id number] TABS 66134194704 No Longer Active Chris Roberto MD Active GUAIFENESIN-CODEINE 100-10 MG/5ML ORAL SYRUP 2 tsp every 6 hours prn GUAIFENESIN-CODEINE 89836723768 No Longer Active Myrna Roberto MD Active NAPROXEN 500 MG ORAL TABLET one tab PO BID NAPR OXEN 84091679687 No Longer Active Myrna Roberto MD Active AUGMENTIN 875-125 MG ORAL TABLET 1 tab by mouth twice daily with food AMOXICILLIN-POT CLAVULANATE 51649499693 No Longer Act zaid Liliana Estrada MD PhD Active AMOXICILLIN 500 MG ORAL CAPSULE 1 tab by mouth 3 times daily 201 02/21/05 AMOXICILLIN 46439518236 No Longer Active Liliana Estrada MD PhD Active TESSALON PERLES 100 MG ORAL CAPSULE 1 tablet by mouth 3 times da cory BENZONATATE 83913475395 No Longer Active Liliana Estrada MD PhD Active FLAGYL 500 MG ORAL TABLET 1 tablet by mouth two times daily 2014 METRONIDAZOLE 27154089405 No Longer Active Nilam Doran tive ZITHROMAX 250 MG ORAL TABLET 2 po today, then 1 po q days 2-5 20 06/08/16 AZITHROMYCIN 94108794112 No Longer Active Arie Casper MD Active VITAMINS 0.8 MG ORAL TABLET take 1 tab po qday [id number] 41140766146 No Longer Active Arie Casper MD Active IBUPROFEN 800 MG ORAL TABLET take one po Q 8 hours 201 02/01/16 IBUPROFEN 49415466308 No Longer Active Arie Casper MD Acti ve [facility] TUSSIN COUGH/COLD CF 5-10-100 MG/5ML ORAL LIQUID 2 teasp oons every 4 hours [id number] 18756740287 No Longer Active Blaine Casper MD Active COMTREX COLD/COUGH DAY/NITE MS 5-2-10-325 MG ORAL 2 caps deja ry 4 hours [id number] 57495562399 No Longer Active Da aleksandra Casper MD Active CHLORASEPTIC MAX SORE THROAT 15-10 MG MOUTH/THROAT LOZENGE 1 every 2 hours prn BENZOCAINE-MENTHOL 71738863743 No Longer Active Arie Casper MD Active PREDNISONE 20 MG ORAL TABLET 2 tabs daily for 3 days, 1 tab daily for 3 days, 1/2 tab daily for 2 days PREDNISONE 98595519933 No Longer Active Jose Zhong MD Active AZITHROMYCIN 250 MG ORAL TABLET 2 po qd x 1 day, then 1 po q d x 4 days AZITHROMYCIN 27723328691 No Longer Active Jose Mcwilliams MD Active ZOFRAN ODT 4 MG ORAL TABLET DISINTEGRATING 1 po q6hr PRN Nausea ONDANSETRON 86689514466 No Longer Active Rich Rosales MD Active ZOFRAN 4 MG ORAL TABLET 1 tablet every 4 hours ONDANSETRON HCL 98817356765 No Longer Active Rich Rosales MD Activ e MUCINEX 600 MG ORAL TABLET EXTENDED RELEASE 12 HOUR Ta ke 1-2 tablets every 12 hours GUAIFENESIN 79957305043 No Longer Active Rich Rosales MD Active BACTRIM 400-80 MG ORAL TABLET take one po BID SULFAMETHOXAZOLE-TRIMETHOPRIM 32420562850 No Longer Active Abelardo HERNANDEZ Active AZITHROMYCIN 500 MG ORAL TABLET 1 PO q day x 6 days 20 03/02/23 AZITHROMYCIN 96549737855 No Longer Active Tin HERNANDEZ Activ e ZITHROMAX 250 MG ORAL TABLET 2 po today, then 1 po q days 2-5 20 10/03/08 AZITHROMYCIN 99158271876 No Longer Active Arie Casper MD Active ZITHROMAX 250 MG ORAL TABLET 2 po today, then 1 po q days 2-5 20 09/23/25 AZITHROMYCIN 45080756068 No Longer Active Arie Casper MD Active AMOXICILLIN 500 MG ORAL CAPSULE 1 tab by mouth 3 times daily 201 11/24/09 AMOXICILLIN 60979317437 No Longer Active Arie Casper MD Active BACTRIM DS 800-160 MG ORAL TABLET 1 tab by mouth twice daily 201 11/03/14 TRIMETHOPRIM-SULFAMETHOXAZOLE 41402339554 No Longer Active Fozia Casper MD Active AMOXICILLIN 500 MG ORAL TABLET take 1 tab po TID 08/05 AMOXICILLIN 75162686837 No Longer Active Arie Casper MD Acti ve BACTRIM DS 800-160 MG ORAL TABLET 1 tab by mouth twice daily 201 11/03/14 BACTRIM DS 800-160 MG ORAL TABLET 349022 TRIMETHOPRIM-SULFAMETHOXAZOLE Inactive MUCINEX 600 MG ORAL TABLET EXTENDED RELEASE 12 HOUR Ta ke 1-2 tablets every 12 hours MUCINEX 600 MG ORAL TABLET EXTENDED RELEA SE 12 HOUR GUAIFENESIN Inactive ZOFRAN 4 MG ORAL TABLET 1 tablet every 4 hours ZOFRAN 4 MG ORAL TABLET 396122 ONDANSETRON HCL Inactive ZOFRAN ODT 4 MG ORAL TABLET DISINTEGRATING 1 po q6hr PRN Nausea ZOFRAN ODT 4 MG ORAL TABLET DISINTEGRATING 246958 ONDAN SETRON Inactive CHLORASEPTIC MAX SORE THROAT 15-10 MG MOUTH/THROAT LOZENGE 1 every 2 hours prn CHLORASEPTIC MAX SORE THROAT 15-10 MG MOUTH/THROAT LOZENGE BENZOCAINE-MENTHOL Inactive COMTREX COLD/COUGH DAY/NITE MS 5-2-10-325 MG ORAL 2 caps deja ry 4 hours COMTREX COLD/COUGH DAY/NITE MS 5-2-10-325 MG ORA L [id number] Inactive [facility] TUSSIN COUGH/COLD CF 5-10-100 MG/5ML ORAL LIQUID 2 teasp oons every 4 hours [facility] TUSSIN COUGH/COLD CF 5-10-100 MG/5ML ORAL LI QUID [id number] Inactive IBUPROFEN 800 MG ORAL TABLET take one po Q 8 hours 201 02/01/16 IBUPROFEN 800 MG ORAL TABLET 431136 IBUPROFEN Inactive VITAMINS 0.8 MG ORAL TABLET take 1 tab po qday VITAMINS 0.8 MG ORAL TABLET [id number] Inactive TESSALON PERLES 100 MG ORAL CAPSULE 1 tablet by mouth 3 times da cory TESSALON PERLES 100 MG ORAL CAPSULE 901697 BENZONATATE Inactive AMOXICILLIN 500 MG ORAL CAPSULE 1 tab by mouth 3 times daily 201 02/21/05 AMOXICILLIN 500 MG ORAL CAPSULE 837858 AMOXICILLIN Inactive GUAIFENESIN-CODEINE 100-10 MG/5ML ORAL SYRUP 2 tsp every 6 hours prn GUAIFENESIN-CODEINE 100-10 MG/5ML ORAL SYRUP 057212 GUAIFENESIN-CODEINE Inactive VICKS DAYQUIL SEVERE COLD/FLU TABLET 1 tab every 6 hours prn 201 02/22/17 VICKS DAYQUIL SEVERE COLD/FLU TABLET PHENYLEPHRI [id number] TABS Inactive BACTRIM DS 800-160 MG ORAL TABLET 1 twice a day 05/30 BACTRIM DS 800-160 MG ORAL TABLET 717678 SULFAMETHOXAZOLE-TRIMETHOPRIM Inactiv e PROMETHAZINE HCL 25 MG ORAL TABLET 1 four times a day as nee ded for vomiting PROMETHAZINE HCL 25 MG ORAL TABLET 118118 PROMETHAZINE HCL Inactive ZYRTEC ALLERGY 10 MG ORAL CAPSULE 1 po qd ZYRTEC ALLERGY 10 MG ORAL CAPSULE CETIRIZINE HCL Inactive MACROBID 100 MG ORAL CAPSULE 1 cap by mouth twice daily MACROBID 100 MG ORAL CAPSULE 2594348 NITROFURANTOIN MONOHYD MACRO In active LOMOTIL 2.5-0.025 MG ORAL TABLET 1 to 2 four times a day as needed for diarrhea LOMOTIL 2.5-0.025 MG ORAL TABLET 4689971 DIPHENOXYLATE-ATROPINE Inactive CYCLOBENZAPRINE HCL 10 MG ORAL TABLET 1/2 - 1 tablet b y mouth three times daily as needed for muscle spasm/pain CYCLOBEN ZAPRINE HCL 10 MG ORAL TABLET 365230 CYCLOBENZAPRINE HCL Inactive AMOXICILLIN 500 MG ORAL TABLET 2 tabs twice a day for 10 days 20 07/09/11 AMOXICILLIN 500 MG ORAL TABLET 404419 AMOXICILLIN I nactive LOMOTIL 2.5-0.025 MG ORAL TABLET 1 to 2 four times a day as needed for diarrhea LOMOTIL 2.5-0.025 MG ORAL TABLET 3335792 DIPHENOXYLATE-ATROPINE Inactive ZOFRAN 4 MG ORAL TABLET 1 TAB PO Q 6 HRS PRN NAUSEA 07/10/15 ZOFRAN 4 MG ORAL TABLET 099581 ONDANSETRON HCL Inactive CITRATE OF MAGNESIA ORAL SOLUTION 1 bottle today for constipatio n CITRATE OF MAGNESIA ORAL SOLUTION 5905002 MAGNESIUM CITR ATE Inactive PROMETHAZINE HCL 12.5 MG ORAL TABLET 1 tablet by mouth every 6 hours as needed for nausea/vomiting PROMETHAZINE HCL 12.5 MG ORA L TABLET 184954 PROMETHAZINE HCL Inactive PREDNISONE 20 MG ORAL TABLET 1 tablet twice daily for 2 days, then 1 tablet once daily for 2 days PREDNISONE 20 MG ORAL TABLET 079557 PREDNISONE Inactive ALPRAZOLAM 0.25 MG ORAL TABLET 1 tablet by mouth every 8 hours as needed for stress ALPRAZOLAM 0.25 MG ORAL TABLET 231673 ALPRA ZOLAM Inactive FLONASE 50 MCG/ACT NASAL SUSPENSION 1 spray each nostr il twice daily for allergies and runny nose until gone FLON ASE 50 MCG/ACT NASAL SUSPENSION 3281104 FLUTICASONE PROPIONATE Inactive PREDNISONE 20 MG ORAL TABLET 1 tablet daily for airway inflammat ion PREDNISONE 20 MG ORAL TABLET 209339 PREDNISONE Arlen ctive NAPROXEN 500 MG ORAL TABLET Take 1 tab BID NAPROXEN 500 MG ORAL TABLET 026716 NAPROXEN Inactive ZOLOFT 50 MG ORAL TABLET 1 tablet by mouth daily 12/08 ZOLOFT 50 MG ORAL TABLET 837664 SERTRALINE HCL Inactive LOMOTIL 2.5-0.025 MG ORAL TABLET 1 tab po four times a day as needed for diarrhea LOMOTIL 2.5-0.025 MG ORAL TABLET 0777572 DIPHENOXYLATE-ATROPINE Inactive CETIRIZINE HCL 10 MG ORAL TABLET 1 po qd PRN Allergies CETIRIZINE HCL 10 MG ORAL TABLET 2758404 CETIRIZINE HCL Inactiv e TUSSIONEX PENNKINETIC ER 10-8 MG/5ML ORAL SUSPENSION E XTENDED RELEASE 5ml po q12hr PRN Cough TUSSIONEX PENNKINETI C ER 10-8 MG/5ML ORAL SUSPENSION EXTENDED RELEASE HYDROCOD POLST-CHLORPHEN POLST I nactive NEXPLANON IMPLANT right arm subcutaneously NEXPLANON IMPLANT ETONOGESTREL IMPL Inactive PROTONIX 40 MG ORAL TABLET DELAYED RELEASE 1 po q a.m. PROTONIX 40 MG ORAL TABLET DELAYED RELEASE 246965 PANTOPRAZOLE SODI UM Inactive CHERATUSSIN AC 100-10 MG/5ML ORAL SYRUP 1 tsp by mouth every 4 hours as needed for cough CHERATUSSIN AC 100-10 MG/5ML ORAL SYRUP 9 66064 GUAIFENESIN-CODEINE Inactive GUAIFENESIN DM 400-20 MG ORAL [...] TID 08/05 AMOXICILLIN 500 MG ORAL TABLET 236788 AMOXICILLIN Inactive AMOXICILLIN 500 MG ORAL CAPSULE 1 tab by mouth 3 times daily 201 11/24/09 AMOXICILLIN 500 MG ORAL CAPSULE 299591 AMOXICILLIN Inactive ZITHROMAX 250 MG ORAL TABLET 2 po today, then 1 po q days 2-5 20 09/23/25 ZITHROMAX 250 MG ORAL TABLET 041587 AZITHROMYCIN Arlen ctive ZITHROMAX 250 MG ORAL TABLET 2 po today, then 1 po q days 2-5 20 10/03/08 ZITHROMAX 250 MG ORAL TABLET 008676 AZITHROMYCIN Arlen ctive AZITHROMYCIN 500 MG ORAL TABLET 1 PO q day x 6 days 20 03/02/23 AZITHROMYCIN 500 MG ORAL TABLET 1077016 AZITHROMYCIN Inactive BACTRIM 400-80 MG ORAL TABLET take one po BID BACTRIM 400- 80 MG ORAL TABLET 650249 SULFAMETHOXAZOLE-TRIMETHOPRIM Inactive AZITHROMYCIN 250 MG ORAL TABLET 2 po qd x 1 day, then 1 po q d x 4 days AZITHROMYCIN 250 MG ORAL TABLET 398759 AZITHROMY ALLISON Inactive PREDNISONE 20 MG ORAL TABLET 2 tabs daily for 3 days, 1 tab daily for 3 days, 1/2 tab daily for 2 days PREDNISONE 20 MG ORAL T ABLET 834174 PREDNISONE Inactive ZITHROMAX 250 MG ORAL TABLET 2 po today, then 1 po q days 2-5 20 06/08/16 ZITHROMAX 250 MG ORAL TABLET 311195 AZITHROMYCIN Arlen ctive FLAGYL 500 MG ORAL TABLET 1 tablet by mouth two times daily 2014 FLAGYL 500 MG ORAL TABLET 680034 METRONIDAZOLE Inacti ve AUGMENTIN 875-125 MG ORAL TABLET 1 tab by mouth twice daily with food AUGMENTIN 875-125 MG ORAL TABLET 031716 AMOXICIL ELSA-POT CLAVULANATE Inactive NAPROXEN 500 MG ORAL TABLET one tab PO BID NAPROXEN 500 MG ORAL TABLET 947900 NAPROXEN Inactive PREDNISONE 20 MG ORAL TABLET 2 tabs daily for 3 days, 1 tab daily for 3 days, 1/2 tab daily for 2 days PREDNISONE 20 MG ORAL T ABLET 399773 PREDNISONE Inactive AZITHROMYCIN 250 MG ORAL TABLET 2 po qd x 1 day, then 1 po q d x 4 days AZITHROMYCIN 250 MG ORAL TABLET 709353 AZITHROMY ALLISON Inactive PREDNISONE 20 MG ORAL TABLET 2 tabs daily for 3 days, 1 tab daily for 3 days, 1/2 tab daily for 2 days PREDNISONE 20 MG ORAL T ABLET 365423 PREDNISONE Inactive ZITHROMAX Z-EMIL 250 MG ORAL TABLET 2 today, then 1 daily for 4 d ays ZITHROMAX Z-EMIL 250 MG ORAL TABLET 424380 AZITHROMYCIN Inactive CEFDINIR 300 MG ORAL CAPSULE 1 po BID x 10 days 12/18 CEFDINIR 300 MG ORAL CAPSULE 20030127 CEFDINIR Inactive CEFDINIR 300 MG ORAL CAPSULE 1 po BID x 10 days CEFDINIR 300 MG ORAL CAPSULE 098526 CEFDINIR Inactive PREDNISONE 20 MG ORAL TABLET 2 tabs daily for 3 days, 1 tab daily for 3 days, 1/2 tab daily for 2 days PREDNISONE 20 MG ORAL T ABLET 267778 PREDNISONE Inactive BACTRIM DS 800-160 MG ORAL TABLET 1 tab by mouth twice daily 201 05/02/30 BACTRIM DS 800-160 MG ORAL TABLET 800574 TRIMETHOPRIM-SULFAMETHOXAZOLE Inactive ZITHROMAX Z-EMIL 250 MG ORAL TABLET 2 today, then 1 daily for 4 d ays ZITHROMAX Z-EMIL 250 MG ORAL TABLET 215217 AZITHROMYCIN Inactive TAMIFLU 75 MG ORAL CAPSULE 1 po BID x 5 days 0 TAMIFLU 75 MG ORAL CAPSULE 068508 OSELTAMIVIR PHOSPHATE Inactive CEFDINIR 300 MG ORAL CAPSULE 1 po BID x 10 days 01/03 CEFDINIR 300 MG ORAL CAPSULE 079486 CEFDINIR Inactive ZITHROMAX Z-EMIL 250 MG TABS Take two tablets today and then 1 tablet daily for 4 days ZITHROMAX Z-EMIL 250 MG TABS 357103 AZITHROM YCIN Inactive Advance Directives Directive Description [...] Unit Range Description Lab Report: CBC, [place] [facility] [place] leukocyte [place], blood 7.8 10^3/MM^3 [...] Negative Encounters Code Encounter Date Provider Facility CPT-07482 [id number] Vst-Est Level IV 13:30:22 Benedicto Casper MD [facility] CPT-71780 Level 4 Est. Patient 13:05:26 CDT Myrna maldonado MD [facility]-40000 [id number] Vst-Est Level IV 20:50:21 C DT Arie Casper MD [facility]-63136 Level 3 Est. Patient 11:49:34 SENIOR RESEARCH EXECUTIVE Jessica boyd [facility] CPT-81990 Level 3 Est. Patient 14:55:50 SENIOR RESEARCH EXECUTIVE Jose Zhong MD [facility]-74219 Level 3 Est. Patient 10:21:41 SENIOR RESEARCH EXECUTIVE Arie mcqueen MD [facility] CPT-90733 Level 3 Est. Patient 11:35:15 SENIOR RESEARCH EXECUTIVE Arie mcqueen MD [facility]-04380 Level 3 Est. Patient 15:40:28 CDT Brii [facility] CPT-18549 Level 3 Est. Patient 16:40:36 CDT Arie mcqueen MD [facility] CPT-10687 Level 4 Est. Patient 15:29:22 SENIOR RESEARCH EXECUTIVE Arie mcqueen MD [facility] CPT-88913 Level 3 Est. Patient 15:18:16 SENIOR RESEARCH EXECUTIVE Jono black [facility] CPT-63716 Level 4 Est. Patient 12:08:40 SENIOR RESEARCH EXECUTIVE Brii Are ll [facility] CPT-24482 Level 3 Est. Patient 09:24:42 CDT Brii Are ll [facility] CPT-91238 Level 3 Est. Patient 09:12:56 CDT Arie mcqueen MD [facility] CPT-67987 Level 3 Est. Patient 16:40:54 CDT Jose Zhong MD [facility] CPT-36556 Level 2 Est. Patient 13:01:13 CDT Brii Are ll [facility] CPT-26718 Level 3 Est. Patient 11:55:30 SENIOR RESEARCH EXECUTIVE Jono black [facility] CPT-94238 Level 3 Est. Patient 09:52:36 SENIOR RESEARCH EXECUTIVE Brii Yepez boris CABRERA [facility] CPT-02669 Level 3 Est. Patient 16:25:33 SENIOR RESEARCH EXECUTIVE Rich Rosales MD [facility] [place]-04032 Level 3 Est. Patient 20:33:55 CDT Arie mcqueen MD [facility] CPT-43207 Level 3 Est. Patient 14:18:20 CDT Rich Rosales MD [facility] CPT-04560 Level 4 Est. Patient 09:34:31 CDT Arie mcqueen MD [facility]-45278 Level 3 Est. Patient 09:08:55 SENIOR RESEARCH EXECUTIVE Liliana vincent MD PhD [facility] CPT-18611 Level 3 Est. Patient 16:44:07 SENIOR RESEARCH EXECUTIVE Arie mcqueen MD [facility] CPT-37116 Level 3 Est. Patient 10:44:27 CDT Arie mcqueen MD [facility] CPT-54949 Level 3 Est. Patient 08:55:41 CDT Jose Zhong MD [facility] [place]-40133 Level 3 Est. Patient 18:37:31 CDT Liliana vincent MD [facility]-71716 Level 3 Est. Patient 14:28:23 CDT Abelardo HERNANDEZ [facility] CPT-35730 Level 3 Est. Patient 15:18:13 SENIOR RESEARCH EXECUTIVE Arie mcqueen MD [facility] CPT-58293 Level 3 Est. Patient 10:11:29 SENIOR RESEARCH EXECUTIVE Arie mcqueen MD [facility] CPT-64488 Level 3 Est. Patient 10:55:57 SENIOR RESEARCH EXECUTIVE Jono black DO [facility] CPT-75824 Level 3 Est. Patient 17:29:05 CDT Arie mcqueen MD [facility] Procedures Code Procedure Name Date Entry Date Standard Desc ription CPT-68229 Nexplanon Removal 15:40:28 CDT CPT-36981 Sono transvag pelvis non OB uterus ovari es cervix - XRAY USE ONLY 08:58:14 SENIOR RESEARCH EXECUTIVE CPT-14728 UA w micro - LAB USE ONLY 16:04:56 SENIOR RESEARCH EXECUTIVE 2015 CPT-40271 Wet Prep/GEN - LAB USE ONLY 16:04:56 SENIOR RESEARCH EXECUTIVE 20 08/10/29 CPT-31205 First Vx - Ix admin via ID I M or jet injects without counseling by physician 16:57:10 CDT CPT-79405 Fluzone Preservative Free Intramuscular Suspension 16:57:10 CDT CPT-J0696 Rocephin 1000 mg (Ceftriaxone) 11:49:23 CDT CPT-J1040 Depo Medrol 80 mg (Methyl Prednisolone A cetate) 11:49:23 CDT CPT-J1100 Decadron 8mg (Dexamethasone) 11:49:23 CDT 2 CPT-92933 Abx/Therapy Injection 11:49:23 CDT CPT-56013 Abx/Therapy Injection 11:49:23 CDT CPT-70496 Abd compl w upright 09:07:26 SENIOR RESEARCH EXECUTIVE CPT-78340 Ear Wash 16:12:47 SENIOR RESEARCH EXECUTIVE CPT-OV Office Visit 11:12:01 CDT CPT-OV Office Visit 15:30:23 CDT CPT-86401 Sono pelvis non OB uterus ovaries cervix 15:50:44 CDT CPT-07647 Hand comp min 3V 16:42:32 CDT CPT-34051 Abd compl w upright 12:17:01 CDT CPT-38715 Nexplanon Placement 15:07:39 SENIOR RESEARCH EXECUTIVE CPT-54509 Removal of IUD 15:07:39 SENIOR RESEARCH EXECUTIVE CPT-99233 TB Tubersol 12:09:32 CDT CPT-14765 TB Tubersol 13:55:43 CDT
--- OUTSIDE RECORDS SUMMARY | 2020-03-03 07:15 | XMS REPORT | Clinical Summary ---
Author Author Admin, Diamante Marcelo Organization [employer] Address Unknown Phone Unavailable Allergies, Adverse [...] implantable subdermal contraceptiv e Active Brii Russ [employer] Vaginal bleeding 623.8 Active Arie Casper MD Other specified noninflammatory disorders of vagina Influenza like illness 487.1 Active Jose Mcwilliams MD Influenza with other respiratory manifestations Sinusitis 473.9 Active Jessica Heaton [employer] Unspecified sinusitis (chronic) Other mixed anxiety 300.00 [...] a day as needed for stress/anxiety ALPRAZOLAM 20500343070 Active Arie whittington MD Active ESCITALOPRAM OXALATE 10 MG ORAL TABLET take 1 tab po qhs for mod 20 10/04/18 ESCITALOPRAM OXALATE 17504464952 Active Arie Casper MD Active TUSSIONEX PENNKINETIC ER 10-8 MG/5ML ORAL SUSPENSION E XTENDED RELEASE 5ml po q12hr PRN Cough HYDROCOD POLST-CHLORPHEN POLST 5 6834261475 No Longer Active Myrna Roberto MD Active ZITHROMAX Z-EMIL 250 MG TABS Take two tablets today and then 1 tablet daily for 4 days AZITHROMYCIN 12990292473 No Longer Active Flaco Rosales MD Active GUAIFENESIN DM 400-20 MG ORAL TABLET 1 pill by mouth t wice daily, if needed for cough DEXTROMETHORPHAN-GUAIFENESIN 52857433801 No Longer Active Rich Rosales MD Active CEFDINIR 300 MG ORAL CAPSULE 1 po BID x 10 days CEFDINIR 83060375595 No Longer Active Jessica Heaton APRN Active CHERATUSSIN AC 100-10 MG/5ML ORAL SYRUP 1 tsp by mouth every 4 hours as needed for cough GUAIFENESIN-CODEINE 47322478169 No Longe r Active Jessica Heaton APRN Active TAMIFLU 75 MG ORAL CAPSULE 1 po BID x 5 days 0 OSELTAMIVIR PHOSPHATE 07069056515 No Longer Active Jose Zhong MD Activ e ZITHROMAX Z-EMIL 250 MG ORAL TABLET 2 today, then 1 daily for 4 d ays AZITHROMYCIN 25760066446 No Longer Active Arie Casper MD Active PROTONIX 40 MG ORAL TABLET DELAYED RELEASE 1 po q a.m. PANTOPRAZOLE SODIUM 97581715630 No Longer Active Arie Casper MD Active BACTRIM DS 800-160 MG ORAL TABLET 1 tab by mouth twice daily 201 05/02/30 TRIMETHOPRIM-SULFAMETHOXAZOLE 19676280164 No Longer Active R [facility] Ty Active NEXPLANON IMPLANT right arm subcutaneously ETONOGESTREL IMPL 23606369167 No Longer Active Brii Russ APRN Active TUSSIONEX PENNKINETIC ER 10-8 MG/5ML ORAL SUSPENSION E XTENDED RELEASE 5ml po q12hr PRN Cough HYDROCOD POLST-CHLORPHEN POLST 5 0327806812 No Longer Active Brii Russ APRN Active CETIRIZINE HCL 10 MG ORAL TABLET 1 po qd PRN Allergies CETIRIZINE HCL 14555189684 No Longer Active Brii Russ APRN Activ e PREDNISONE 20 MG ORAL TABLET 2 tabs daily for 3 days, 1 tab daily for 3 days, 1/2 tab daily for 2 days PREDNISONE 91698582216 No Longer Active Arie Casper MD Active LOMOTIL 2.5-0.025 MG ORAL TABLET 1 tab po four times a day as needed for diarrhea DIPHENOXYLATE-ATROPINE 67941478269 No Lo nger Active Arie Casper MD Active ZOLOFT 50 MG ORAL TABLET 1 tablet by mouth daily 12/08 SERTRALINE HCL 94474247595 No Longer Active Arie Casper MD Ac tive NAPROXEN 500 MG ORAL TABLET Take 1 tab BID NAPR OXEN 12804383879 No Longer Active Arie Casper MD Active CEFDINIR 300 MG ORAL CAPSULE 1 po BID x 10 days CEFDINIR 58251963558 No Longer Active Brii Russ APRN Active PREDNISONE 20 MG ORAL TABLET 1 tablet daily for airway inflammat ion PREDNISONE 14485339870 No Longer Active Brii Russ APRN A ctive CEFDINIR 300 MG ORAL CAPSULE 1 po BID x 10 days CEFDINIR 78433887620 No Longer Active Jono Gagnon DO Active FLONASE 50 MCG/ACT NASAL SUSPENSION 1 spray each nostr il twice daily for allergies and runny nose until gone FLUT ICASONE PROPIONATE 99178993335 No Longer Active Jono Gagnon DO Active ALPRAZOLAM 0.25 MG ORAL TABLET 1 tablet by mouth every 8 hours as needed for stress ALPRAZOLAM 48408392173 No Longer Active Jono Gagnon DO Active ZITHROMAX Z-EMIL 250 MG ORAL TABLET 2 today, then 1 daily for 4 d ays AZITHROMYCIN 06088066617 No Longer Active Arie Casper MD Active PREDNISONE 20 MG ORAL TABLET 2 tabs daily for 3 days, 1 tab daily for 3 days, 1/2 tab daily for 2 days PREDNISONE 67768320017 No Longer Active Brii Russ APRN Active PREDNISONE 20 MG ORAL TABLET 1 tablet twice daily for 2 days, then 1 tablet once daily for 2 days PREDNISONE 23761221546 No Longer Active Brii Russ APRN Active PROMETHAZINE HCL 12.5 MG ORAL TABLET 1 tablet by mouth every 6 hours as needed for nausea/vomiting PROMETHAZINE HCL 71539767809 No L onger Active Jono Gagnon DO Active CITRATE OF MAGNESIA ORAL SOLUTION 1 bottle today for constipatio n MAGNESIUM CITRATE 83167595626 No Longer Active Jono Gagnon DO Active ZOFRAN 4 MG ORAL TABLET 1 TAB PO Q 6 HRS PRN NAUSEA 07/10/15 ONDANSETRON HCL 12675500404 No Longer Active Brii Russ APRN Acti ve LOMOTIL 2.5-0.025 MG ORAL TABLET 1 to 2 four times a day as needed for diarrhea DIPHENOXYLATE-ATROPINE 68945856287 No Longer Active January Russ APRN Active AMOXICILLIN 500 MG ORAL TABLET 2 tabs twice a day for 10 days 07/09/11 AMOXICILLIN 61501046640 No Longer Active Brii Russ APRN Active CYCLOBENZAPRINE HCL 10 MG ORAL TABLET 1/2 - 1 tablet b y mouth three times daily as needed for muscle spasm/pain CYCLOBENZAPRINE HCL 87091836930 No Longer Active Arie Casper MD Active LOMOTIL 2.5-0.025 MG ORAL TABLET 1 to 2 four times a day as needed for diarrhea DIPHENOXYLATE-ATROPINE 11381680746 No Longer Active Fozia Casper MD Active MACROBID 100 MG ORAL CAPSULE 1 cap by mouth twice daily NITROFURANTOIN MONOHYD MACRO 69484628333 No Longer Active Arie Casper MD Active ZYRTEC ALLERGY 10 MG ORAL CAPSULE 1 po qd CE TIRIZINE HCL 42599163490 No Longer Active Arie Casper MD Active AZITHROMYCIN 250 MG ORAL TABLET 2 po qd x 1 day, then 1 po q d x 4 days AZITHROMYCIN 15000293796 No Longer Active Jessica salgado [employer] Active PREDNISONE 20 MG ORAL TABLET 2 tabs daily for 3 days, 1 tab daily for 3 days, 1/2 tab daily for 2 days PREDNISONE 10477781371 No Longer Active Jillarlen Heaton [employer] Active PROMETHAZINE HCL 25 MG ORAL TABLET 1 four times a day as nee ded for vomiting PROMETHAZINE HCL 41504666564 No Longer Active Myrna Roberto MD Active BACTRIM DS 800-160 MG ORAL TABLET 1 twice a day 05/30 SULFAMETHOXAZOLE-TRIMETHOPRIM 99042903398 No Longer Active Myrna Roberto MD Active VICKS DAYQUIL SEVERE COLD/FLU TABLET 1 tab every 6 hours prn 201 02/22/17 [id number] TABS 98752555030 No Longer Active Chris Roberto MD Active GUAIFENESIN-CODEINE 100-10 MG/5ML ORAL SYRUP 2 tsp every 6 hours prn GUAIFENESIN-CODEINE 09858085237 No Longer Active Myrna Roberto MD Active NAPROXEN 500 MG ORAL TABLET one tab PO BID NAPR OXEN 33126782612 No Longer Active Myrna Roberto MD Active AUGMENTIN 875-125 MG ORAL TABLET 1 tab by mouth twice daily with food AMOXICILLIN-POT CLAVULANATE 15346861687 No Longer Act zaid Liliana Estrada MD PhD Active AMOXICILLIN 500 MG ORAL CAPSULE 1 tab by mouth 3 times daily 201 02/21/05 AMOXICILLIN 52924532253 No Longer Active Liliana Estrada MD PhD Active TESSALON PERLES 100 MG ORAL CAPSULE 1 tablet by mouth 3 times da cory BENZONATATE 59155073033 No Longer Active Liliana Estrada MD PhD Active FLAGYL 500 MG ORAL TABLET 1 tablet by mouth two times daily 2014 METRONIDAZOLE 51312525846 No Longer Active Nilam Doran tive ZITHROMAX 250 MG ORAL TABLET 2 po today, then 1 po q days 2-5 20 06/08/16 AZITHROMYCIN 72043570779 No Longer Active Arie Casper MD Active VITAMINS 0.8 MG ORAL TABLET take 1 tab po qday [id number] 69390363518 No Longer Active Arie Casper MD Active IBUPROFEN 800 MG ORAL TABLET take one po Q 8 hours 201 02/01/16 IBUPROFEN 67663690994 No Longer Active Arie Casper MD Acti ve [facility] TUSSIN COUGH/COLD CF 5-10-100 MG/5ML ORAL LIQUID 2 teasp oons every 4 hours [id number] 61732647552 No Longer Active Blaine Casper MD Active COMTREX COLD/COUGH DAY/NITE MS 5-2-10-325 MG ORAL 2 caps deja ry 4 hours [id number] 73487144060 No Longer Active Da aleksandra Casper MD Active CHLORASEPTIC MAX SORE THROAT 15-10 MG MOUTH/THROAT LOZENGE 1 every 2 hours prn BENZOCAINE-MENTHOL 19226508525 No Longer Active Arie Casper MD Active PREDNISONE 20 MG ORAL TABLET 2 tabs daily for 3 days, 1 tab daily for 3 days, 1/2 tab daily for 2 days PREDNISONE 96176066260 No Longer Active Jose Zhong MD Active AZITHROMYCIN 250 MG ORAL TABLET 2 po qd x 1 day, then 1 po q d x 4 days AZITHROMYCIN 72652906451 No Longer Active Jose Mcwilliams MD Active ZOFRAN ODT 4 MG ORAL TABLET DISINTEGRATING 1 po q6hr PRN Nausea ONDANSETRON 99744933549 No Longer Active Rich Rosales MD Active ZOFRAN 4 MG ORAL TABLET 1 tablet every 4 hours ONDANSETRON HCL 26475191055 No Longer Active Rich Rosales MD Activ e MUCINEX 600 MG ORAL TABLET EXTENDED RELEASE 12 HOUR Ta ke 1-2 tablets every 12 hours GUAIFENESIN 88834013172 No Longer Active Rich Rosales MD Active BACTRIM 400-80 MG ORAL TABLET take one po BID SULFAMETHOXAZOLE-TRIMETHOPRIM 42189796689 No Longer Active Abelardo HERNANDEZ Active AZITHROMYCIN 500 MG ORAL TABLET 1 PO q day x 6 days 20 03/02/23 AZITHROMYCIN 34177413097 No Longer Active Tin HERNANDEZ Activ e ZITHROMAX 250 MG ORAL TABLET 2 po today, then 1 po q days 2-5 20 10/03/08 AZITHROMYCIN 69033218431 No Longer Active Arie Casper MD Active ZITHROMAX 250 MG ORAL TABLET 2 po today, then 1 po q days 2-5 20 09/23/25 AZITHROMYCIN 37577006535 No Longer Active Arie Casper MD Active AMOXICILLIN 500 MG ORAL CAPSULE 1 tab by mouth 3 times daily 201 11/24/09 AMOXICILLIN 96962899808 No Longer Active Arie Casper MD Active BACTRIM DS 800-160 MG ORAL TABLET 1 tab by mouth twice daily 201 11/03/14 TRIMETHOPRIM-SULFAMETHOXAZOLE 12781857267 No Longer Active Fozia Casper MD Active AMOXICILLIN 500 MG ORAL TABLET take 1 tab po TID 08/05 AMOXICILLIN 04561129556 No Longer Active Arie Casper MD Acti ve BACTRIM DS 800-160 MG ORAL TABLET 1 tab by mouth twice daily 201 11/03/14 BACTRIM DS 800-160 MG ORAL TABLET 141452 TRIMETHOPRIM-SULFAMETHOXAZOLE Inactive MUCINEX 600 MG ORAL TABLET EXTENDED RELEASE 12 HOUR Ta ke 1-2 tablets every 12 hours MUCINEX 600 MG ORAL TABLET EXTENDED RELEA SE 12 HOUR GUAIFENESIN Inactive ZOFRAN 4 MG ORAL TABLET 1 tablet every 4 hours ZOFRAN 4 MG ORAL TABLET 481543 ONDANSETRON HCL Inactive ZOFRAN ODT 4 MG ORAL TABLET DISINTEGRATING 1 po q6hr PRN Nausea ZOFRAN ODT 4 MG ORAL TABLET DISINTEGRATING 871106 ONDAN SETRON Inactive CHLORASEPTIC MAX SORE THROAT 15-10 MG MOUTH/THROAT LOZENGE 1 every 2 hours prn CHLORASEPTIC MAX SORE THROAT 15-10 MG MOUTH/THROAT LOZENGE BENZOCAINE-MENTHOL Inactive COMTREX COLD/COUGH DAY/NITE MS 5-2-10-325 MG ORAL 2 caps deja ry 4 hours COMTREX COLD/COUGH DAY/NITE MS 5-2-10-325 MG ORA L [id number] Inactive [facility] TUSSIN COUGH/COLD CF 5-10-100 MG/5ML ORAL LIQUID 2 teasp oons every 4 hours [facility] TUSSIN COUGH/COLD CF 5-10-100 MG/5ML ORAL LI QUID [id number] Inactive IBUPROFEN 800 MG ORAL TABLET take one po Q 8 hours 201 02/01/16 IBUPROFEN 800 MG ORAL TABLET 737257 IBUPROFEN Inactive VITAMINS 0.8 MG ORAL TABLET take 1 tab po qday VITAMINS 0.8 MG ORAL TABLET [id number] E-FA Inactive TESSALON PERLES 100 MG ORAL CAPSULE 1 tablet by mouth 3 times da cory TESSALON PERLES 100 MG ORAL CAPSULE 299170 BENZONATATE Inactive AMOXICILLIN 500 MG ORAL CAPSULE 1 tab by mouth 3 times daily 201 02/21/05 AMOXICILLIN 500 MG ORAL CAPSULE 406947 AMOXICILLIN Inactive GUAIFENESIN-CODEINE 100-10 MG/5ML ORAL SYRUP 2 tsp every 6 hours prn GUAIFENESIN-CODEINE 100-10 MG/5ML ORAL SYRUP 261941 GUAIFENESIN-CODEINE Inactive VICKS DAYQUIL SEVERE COLD/FLU TABLET 1 tab every 6 hours prn 201 02/22/17 VICKS DAYQUIL SEVERE COLD/FLU TABLET PHENYLEPHRI [id number] TABS Inactive BACTRIM DS 800-160 MG ORAL TABLET 1 twice a day 05/30 BACTRIM DS 800-160 MG ORAL TABLET 540511 SULFAMETHOXAZOLE-TRIMETHOPRIM Inactiv e PROMETHAZINE HCL 25 MG ORAL TABLET 1 four times a day as nee ded for vomiting PROMETHAZINE HCL 25 MG ORAL TABLET 288351 PROMETHAZINE HCL Inactive ZYRTEC ALLERGY 10 MG ORAL CAPSULE 1 po qd ZYRTEC ALLERGY 10 MG ORAL CAPSULE CETIRIZINE HCL Inactive MACROBID 100 MG ORAL CAPSULE 1 cap by mouth twice daily MACROBID 100 MG ORAL CAPSULE 8610637 NITROFURANTOIN MONOHYD MACRO In active LOMOTIL 2.5-0.025 MG ORAL TABLET 1 to 2 four times a day as needed for diarrhea LOMOTIL 2.5-0.025 MG ORAL TABLET 7844899 DIPHENOXYLATE-ATROPINE Inactive CYCLOBENZAPRINE HCL 10 MG ORAL TABLET 1/2 - 1 tablet b y mouth three times daily as needed for muscle spasm/pain CYCLOBEN ZAPRINE HCL 10 MG ORAL TABLET 515971 CYCLOBENZAPRINE HCL Inactive AMOXICILLIN 500 MG ORAL TABLET 2 tabs twice a day for 10 days 20 07/09/11 AMOXICILLIN 500 MG ORAL TABLET 600190 AMOXICILLIN I nactive LOMOTIL 2.5-0.025 MG ORAL TABLET 1 to 2 four times a day as needed for diarrhea LOMOTIL 2.5-0.025 MG ORAL TABLET 3440465 DIPHENOXYLATE-ATROPINE Inactive ZOFRAN 4 MG ORAL TABLET 1 TAB PO Q 6 HRS PRN NAUSEA 07/10/15 ZOFRAN 4 MG ORAL TABLET 204589 ONDANSETRON HCL Inactive CITRATE OF MAGNESIA ORAL SOLUTION 1 bottle today for constipatio n CITRATE OF MAGNESIA ORAL SOLUTION 4732662 MAGNESIUM CITR ATE Inactive PROMETHAZINE HCL 12.5 MG ORAL TABLET 1 tablet by mouth every 6 hours as needed for nausea/vomiting PROMETHAZINE HCL 12.5 MG ORA L TABLET 507563 PROMETHAZINE HCL Inactive PREDNISONE 20 MG ORAL TABLET 1 tablet twice daily for 2 days, then 1 tablet once daily for 2 days PREDNISONE 20 MG ORAL TABLET 503556 PREDNISONE Inactive ALPRAZOLAM 0.25 MG ORAL TABLET 1 tablet by mouth every 8 hours as needed for stress ALPRAZOLAM 0.25 MG ORAL TABLET 299309 ALPRA ZOLAM Inactive FLONASE 50 MCG/ACT NASAL SUSPENSION 1 spray each nostr il twice daily for allergies and runny nose until gone FLON ASE 50 MCG/ACT NASAL SUSPENSION 7015619 FLUTICASONE PROPIONATE Inactive PREDNISONE 20 MG ORAL TABLET 1 tablet daily for airway inflammat ion PREDNISONE 20 MG ORAL TABLET 938721 PREDNISONE Arlen ctive NAPROXEN 500 MG ORAL TABLET Take 1 tab BID NAPROXEN 500 MG ORAL TABLET 067063 NAPROXEN Inactive ZOLOFT 50 MG ORAL TABLET 1 tablet by mouth daily 12/08 ZOLOFT 50 MG ORAL TABLET 891467 SERTRALINE HCL Inactive LOMOTIL 2.5-0.025 MG ORAL TABLET 1 tab po four times a day as needed for diarrhea LOMOTIL 2.5-0.025 MG ORAL TABLET 2857369 DIPHENOXYLATE-ATROPINE Inactive CETIRIZINE HCL 10 MG ORAL TABLET 1 po qd PRN Allergies CETIRIZINE HCL 10 MG ORAL TABLET 2021010 CETIRIZINE HCL Inactiv e TUSSIONEX PENNKINETIC ER 10-8 MG/5ML ORAL SUSPENSION E XTENDED RELEASE 5ml po q12hr PRN Cough TUSSIONEX PENNKINETI C ER 10-8 MG/5ML ORAL SUSPENSION EXTENDED RELEASE HYDROCOD POLST-CHLORPHEN POLST I nactive NEXPLANON IMPLANT right arm subcutaneously NEXPLANON IMPLANT ETONOGESTREL IMPL Inactive PROTONIX 40 MG ORAL TABLET DELAYED RELEASE 1 po q a.m. PROTONIX 40 MG ORAL TABLET DELAYED RELEASE 424318 PANTOPRAZOLE SODI UM Inactive CHERATUSSIN AC 100-10 MG/5ML ORAL SYRUP 1 tsp by mouth every 4 hours as needed for cough CHERATUSSIN AC 100-10 MG/5ML ORAL SYRUP 9 11285 GUAIFENESIN-CODEINE Inactive GUAIFENESIN DM 400-20 MG ORAL [...] TID 08/05 AMOXICILLIN 500 MG ORAL TABLET 452031 AMOXICILLIN Inactive AMOXICILLIN 500 MG ORAL CAPSULE 1 tab by mouth 3 times daily 201 11/24/09 AMOXICILLIN 500 MG ORAL CAPSULE 190569 AMOXICILLIN Inactive ZITHROMAX 250 MG ORAL TABLET 2 po today, then 1 po q days 2-5 20 09/23/25 ZITHROMAX 250 MG ORAL TABLET 111466 AZITHROMYCIN Arlen ctive ZITHROMAX 250 MG ORAL TABLET 2 po today, then 1 po q days 2-5 20 10/03/08 ZITHROMAX 250 MG ORAL TABLET 492118 AZITHROMYCIN Arlen ctive AZITHROMYCIN 500 MG ORAL TABLET 1 PO q day x 6 days 20 03/02/23 AZITHROMYCIN 500 MG ORAL TABLET 3913179 AZITHROMYCIN Inactive BACTRIM 400-80 MG ORAL TABLET take one po BID BACTRIM 400- 80 MG ORAL TABLET 192075 SULFAMETHOXAZOLE-TRIMETHOPRIM Inactive AZITHROMYCIN 250 MG ORAL TABLET 2 po qd x 1 day, then 1 po q d x 4 days AZITHROMYCIN 250 MG ORAL TABLET 290251 AZITHROMY ALLISON Inactive PREDNISONE 20 MG ORAL TABLET 2 tabs daily for 3 days, 1 tab daily for 3 days, 1/2 tab daily for 2 days PREDNISONE 20 MG ORAL T ABLET 973117 PREDNISONE Inactive ZITHROMAX 250 MG ORAL TABLET 2 po today, then 1 po q days 2-5 20 06/08/16 ZITHROMAX 250 MG ORAL TABLET 830789 AZITHROMYCIN Arlen ctive FLAGYL 500 MG ORAL TABLET 1 tablet by mouth two times daily 2014 FLAGYL 500 MG ORAL TABLET 079665 METRONIDAZOLE Inacti ve AUGMENTIN 875-125 MG ORAL TABLET 1 tab by mouth twice daily with food AUGMENTIN 875-125 MG ORAL TABLET 016834 AMOXICIL ELSA-POT CLAVULANATE Inactive NAPROXEN 500 MG ORAL TABLET one tab PO BID NAPROXEN 500 MG ORAL TABLET 508576 NAPROXEN Inactive PREDNISONE 20 MG ORAL TABLET 2 tabs daily for 3 days, 1 tab daily for 3 days, 1/2 tab daily for 2 days PREDNISONE 20 MG ORAL T ABLET 302667 PREDNISONE Inactive AZITHROMYCIN 250 MG ORAL TABLET 2 po qd x 1 day, then 1 po q d x 4 days AZITHROMYCIN 250 MG ORAL TABLET 709568 AZITHROMY ALLISON Inactive PREDNISONE 20 MG ORAL TABLET 2 tabs daily for 3 days, 1 tab daily for 3 days, 1/2 tab daily for 2 days PREDNISONE 20 MG ORAL T ABLET 408237 PREDNISONE Inactive ZITHROMAX Z-EMIL 250 MG ORAL TABLET 2 today, then 1 daily for 4 d ays ZITHROMAX Z-EMIL 250 MG ORAL TABLET 129435 AZITHROMYCIN Inactive CEFDINIR 300 MG ORAL CAPSULE 1 po BID x 10 days 12/18 CEFDINIR 300 MG ORAL CAPSULE 20030127 CEFDINIR Inactive CEFDINIR 300 MG ORAL CAPSULE 1 po BID x 10 days CEFDINIR 300 MG ORAL CAPSULE 389493 CEFDINIR Inactive PREDNISONE 20 MG ORAL TABLET 2 tabs daily for 3 days, 1 tab daily for 3 days, 1/2 tab daily for 2 days PREDNISONE 20 MG ORAL T ABLET 277934 PREDNISONE Inactive BACTRIM DS 800-160 MG ORAL TABLET 1 tab by mouth twice daily 201 05/02/30 BACTRIM DS 800-160 MG ORAL TABLET 482082 TRIMETHOPRIM-SULFAMETHOXAZOLE Inactive ZITHROMAX Z-EMIL 250 MG ORAL TABLET 2 today, then 1 daily for 4 d ays ZITHROMAX Z-EMIL 250 MG ORAL TABLET 721160 AZITHROMYCIN Inactive TAMIFLU 75 MG ORAL CAPSULE 1 po BID x 5 days 0 TAMIFLU 75 MG ORAL CAPSULE 651071 OSELTAMIVIR PHOSPHATE Inactive CEFDINIR 300 MG ORAL CAPSULE 1 po BID x 10 days 01/03 CEFDINIR 300 MG ORAL CAPSULE 210023 CEFDINIR Inactive ZITHROMAX Z-EMIL 250 MG TABS Take two tablets today and then 1 tablet daily for 4 days ZITHROMAX Z-EMIL 250 MG TABS 764534 AZITHROM YCIN Inactive Advance Directives Directive Description [...] Unit Range Description Lab Report: CBC, [place] [facility] [place] leukocyte [place], blood 7.8 10^3/MM^3 [...] Negative Encounters Code Encounter Date Provider Facility CPT-03996 [id number] Vst-Est Level IV 13:30:22 Benedicto Casper MD [facility] CPT-38324 Level 4 Est. Patient 13:05:26 CDT Myrna maldonado MD [facility]-97712 [id number] Vst-Est Level IV 20:50:21 C DT Arie Casper MD [facility]-58402 Level 3 Est. Patient 11:49:34 CARPET FLOOR LAYER APPRENTICE Jessica boyd [facility] CPT-28312 Level 3 Est. Patient 14:55:50 CARPET FLOOR LAYER APPRENTICE Jose Zhong MD [facility]-49295 Level 3 Est. Patient 10:21:41 CARPET FLOOR LAYER APPRENTICE Arie mcqueen MD [facility] CPT-01033 Level 3 Est. Patient 11:35:15 CARPET FLOOR LAYER APPRENTICE Arie mcqueen MD [facility]-90880 Level 3 Est. Patient 15:40:28 CDT Brii Are [facility] CPT-02580 Level 3 Est. Patient 16:40:36 CDT Arie mcqueen MD [facility] CPT-68023 Level 4 Est. Patient 15:29:22 CARPET FLOOR LAYER APPRENTICE Arie mcqueen MD [facility] CPT-89049 Level 3 Est. Patient 15:18:16 CARPET FLOOR LAYER APPRENTICE Jono black [facility] CPT-03975 Level 4 Est. Patient 12:08:40 CARPET FLOOR LAYER APPRENTICE Brii Are ll [facility] CPT-35659 Level 3 Est. Patient 09:24:42 CDT Brii Are ll [facility] CPT-85697 Level 3 Est. Patient 09:12:56 CDT Arie mcqueen MD [facility] CPT-22723 Level 3 Est. Patient 16:40:54 CDT Jose Zhong MD [facility] CPT-97750 Level 2 Est. Patient 13:01:13 CDT Brii Are ll [facility] CPT-52506 Level 3 Est. Patient 11:55:30 CARPET FLOOR LAYER APPRENTICE Jono black [facility] CPT-86486 Level 3 Est. Patient 09:52:36 CARPET FLOOR LAYER APPRENTICE Brii Yepez boris CABRERA [facility] CPT-90151 Level 3 Est. Patient 16:25:33 CARPET FLOOR LAYER APPRENTICE Rich Rosales MD [facility]-02377 Level 3 Est. Patient 20:33:55 CDT Arie mcqueen MD [facility] CPT-82714 Level 3 Est. Patient 14:18:20 CDT Rich Rosales MD [facility] CPT-74231 Level 4 Est. Patient 09:34:31 CDT Arie mcqueen MD [facility]-38562 Level 3 Est. Patient 09:08:55 CARPET FLOOR LAYER APPRENTICE Liliana vincent MD PhD [facility] CPT-21501 Level 3 Est. Patient 16:44:07 CARPET FLOOR LAYER APPRENTICE Arie mcqueen MD [facility] CPT-35969 Level 3 Est. Patient 10:44:27 CDT Arie mcqueen MD [facility] CPT-10838 Level 3 Est. Patient 08:55:41 CDT Jose Zhong MD [facility]-54148 Level 3 Est. Patient 18:37:31 CDT Liliana vincent MD [facility]-32234 Level 3 Est. Patient 14:28:23 CDT Abelardo HERNANDEZ [facility] CPT-54162 Level 3 Est. Patient 15:18:13 CARPET FLOOR LAYER APPRENTICE Arie mcqueen MD [facility] CPT-57304 Level 3 Est. Patient 10:11:29 CARPET FLOOR LAYER APPRENTICE Arie mcqueen MD [facility] CPT-63379 Level 3 Est. Patient 10:55:57 CARPET FLOOR LAYER APPRENTICE Jono black DO [facility] CPT-31732 Level 3 Est. Patient 17:29:05 CDT Arie mcqueen MD [facility] Procedures Code Procedure Name Date Entry Date Standard Desc ription CPT-08386 Nexplanon Removal 15:40:28 CDT CPT-43237 Sono transvag pelvis non OB uterus ovari es cervix - XRAY USE ONLY 08:58:14 CARPET FLOOR LAYER APPRENTICE CPT-90436 UA w micro - LAB USE ONLY 16:04:56 CARPET FLOOR LAYER APPRENTICE 2015 CPT-40879 Wet Prep/GEN - LAB USE ONLY 16:04:56 CARPET FLOOR LAYER APPRENTICE 20 08/10/29 CPT-76091 First Vx - Ix admin via ID I M or jet injects without counseling by physician 16:57:10 CDT CPT-41444 Fluzone Preservative Free Intramuscular Suspension 16:57:10 CDT CPT-J0696 Rocephin 1000 mg (Ceftriaxone) 11:49:23 CDT CPT-J1040 Depo Medrol 80 mg (Methyl Prednisolone A cetate) 11:49:23 CDT CPT-J1100 Decadron 8mg (Dexamethasone) 11:49:23 CDT 2 CPT-50332 Abx/Therapy Injection 11:49:23 CDT CPT-10811 Abx/Therapy Injection 11:49:23 CDT CPT-07306 Abd compl w upright 09:07:26 CARPET FLOOR LAYER APPRENTICE CPT-79037 Ear Wash 16:12:47 CARPET FLOOR LAYER APPRENTICE CPT-OV Office Visit 11:12:01 CDT CPT-OV Office Visit 15:30:23 CDT CPT-67259 Sono pelvis non OB uterus ovaries cervix 15:50:44 CDT CPT-62139 Hand comp min 3V 16:42:32 CDT CPT-45543 Abd compl w upright 12:17:01 CDT CPT-51939 Nexplanon Placement 15:07:39 CARPET FLOOR LAYER APPRENTICE CPT-99359 Removal of IUD 15:07:39 CARPET FLOOR LAYER APPRENTICE CPT-68346 TB Tubersol 12:09:32 CDT CPT-32809 TB Tubersol 13:55:43 CDT
--- OUTSIDE RECORDS SUMMARY | 2020-03-03 07:16 | XMS REPORT | Clinical Summary ---
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 Unspecified sinusitis (chronic) Other mixed anxiety 300.00 [...] a day as needed for stress/anxiety ALPRAZOLAM 33468805144 Active Arie whittington MD Active ESCITALOPRAM OXALATE 10 MG ORAL TABLET take 1 tab po qhs for mod 20 10/04/18 ESCITALOPRAM OXALATE 62462479239 Active Arie Casper MD Active TUSSIONEX PENNKINETIC ER 10-8 MG/5ML ORAL SUSPENSION E XTENDED RELEASE 5ml po q12hr PRN Cough HYDROCOD POLST-CHLORPHEN POLST 5 9147031347 No Longer Active Myrna Roberto MD Active ZITHROMAX Z-EMIL 250 MG TABS Take two tablets today and then 1 tablet daily for 4 days AZITHROMYCIN 17732658592 No Longer Active Flaco Rosales MD Active GUAIFENESIN DM 400-20 MG ORAL TABLET 1 pill by mouth t wice daily, if needed for cough DEXTROMETHORPHAN-GUAIFENESIN 49683795086 No Longer Active Rich Rosales MD Active CEFDINIR 300 MG ORAL CAPSULE 1 po BID x 10 days CEFDINIR 54509500486 No Longer Active Jessica Heaton APRN Active CHERATUSSIN AC 100-10 MG/5ML ORAL SYRUP 1 tsp by mouth every 4 hours as needed for cough GUAIFENESIN-CODEINE 29259571913 No Longe r Active Jessica Heaton APRN Active TAMIFLU 75 MG ORAL CAPSULE 1 po BID x 5 days 0 OSELTAMIVIR PHOSPHATE 85049137354 No Longer Active Jose Zhong MD Activ e ZITHROMAX Z-EMIL 250 MG ORAL TABLET 2 today, then 1 daily for 4 d ays AZITHROMYCIN 74246158571 No Longer Active Arie Casper MD Active PROTONIX 40 MG ORAL TABLET DELAYED RELEASE 1 po q a.m. PANTOPRAZOLE SODIUM 28212239198 No Longer Active Arie Casper MD Active BACTRIM DS 800-160 MG ORAL TABLET 1 tab by mouth twice daily 201 05/02/30 TRIMETHOPRIM-SULFAMETHOXAZOLE 18664687917 No Longer Active R [facility] Active NEXPLANON IMPLANT right arm subcutaneously ETONOGESTREL IMPL 33281704823 No Longer Active Brii Russ APRN Active TUSSIONEX PENNKINETIC ER 10-8 MG/5ML ORAL SUSPENSION E XTENDED RELEASE 5ml po q12hr PRN Cough HYDROCOD POLST-CHLORPHEN POLST 5 2200124857 No Longer Active Brii Russ APRN Active CETIRIZINE HCL 10 MG ORAL TABLET 1 po qd PRN Allergies CETIRIZINE HCL 24501729345 No Longer Active Brii Russ APRN Activ e PREDNISONE 20 MG ORAL TABLET 2 tabs daily for 3 days, 1 tab daily for 3 days, 1/2 tab daily for 2 days PREDNISONE 63587890571 No Longer Active Arie Casper MD Active LOMOTIL 2.5-0.025 MG ORAL TABLET 1 tab po four times a day as needed for diarrhea DIPHENOXYLATE-ATROPINE 05640671320 No Lo nger Active Arie Casper MD Active ZOLOFT 50 MG ORAL TABLET 1 tablet by mouth daily 12/08 SERTRALINE HCL 72007818061 No Longer Active Arie Casper MD Ac tive NAPROXEN 500 MG ORAL TABLET Take 1 tab BID NAPR OXEN 49179909132 No Longer Active Arie Casper MD Active CEFDINIR 300 MG ORAL CAPSULE 1 po BID x 10 days CEFDINIR 97621238547 No Longer Active Brii Russ APRN Active PREDNISONE 20 MG ORAL TABLET 1 tablet daily for airway inflammat ion PREDNISONE 98930897801 No Longer Active Brii Russ APRN A ctive CEFDINIR 300 MG ORAL CAPSULE 1 po BID x 10 days CEFDINIR 14576973539 No Longer Active Jono Gagnon DO Active FLONASE 50 MCG/ACT NASAL SUSPENSION 1 spray each nostr il twice daily for allergies and runny nose until gone FLUT ICASONE PROPIONATE 60945898362 No Longer Active Jono Gagnon DO Active ALPRAZOLAM 0.25 MG ORAL TABLET 1 tablet by mouth every 8 hours as needed for stress ALPRAZOLAM 14565984129 No Longer Active Jono Gagnon DO Active ZITHROMAX Z-EMIL 250 MG ORAL TABLET 2 today, then 1 daily for 4 d ays AZITHROMYCIN 01523797603 No Longer Active Arie Casper MD Active PREDNISONE 20 MG ORAL TABLET 2 tabs daily for 3 days, 1 tab daily for 3 days, 1/2 tab daily for 2 days PREDNISONE 81381351463 No Longer Active Brii Russ APRN Active PREDNISONE 20 MG ORAL TABLET 1 tablet twice daily for 2 days, then 1 tablet once daily for 2 days PREDNISONE 21874622454 No Longer Active Brii Russ APRN Active PROMETHAZINE HCL 12.5 MG ORAL TABLET 1 tablet by mouth every 6 hours as needed for nausea/vomiting PROMETHAZINE HCL 93293743977 No L onger Active Jono Gagnon DO Active CITRATE OF MAGNESIA ORAL SOLUTION 1 bottle today for constipatio n MAGNESIUM CITRATE 70697928686 No Longer Active Jono Gagnon DO Active ZOFRAN 4 MG ORAL TABLET 1 TAB PO Q 6 HRS PRN NAUSEA 07/10/15 ONDANSETRON HCL 70912184327 No Longer Active Brii Russ APRN Acti ve LOMOTIL 2.5-0.025 MG ORAL TABLET 1 to 2 four times a day as needed for diarrhea DIPHENOXYLATE-ATROPINE 19204961745 No Longer Active January Russ APRN Active AMOXICILLIN 500 MG ORAL TABLET 2 tabs twice a day for 10 days 07/09/11 AMOXICILLIN 12729863260 No Longer Active Brii Russ APRN Active CYCLOBENZAPRINE HCL 10 MG ORAL TABLET 1/2 - 1 tablet b y mouth three times daily as needed for muscle spasm/pain CYCLOBENZAPRINE HCL 62670377742 No Longer Active Arie Casper MD Active LOMOTIL 2.5-0.025 MG ORAL TABLET 1 to 2 four times a day as needed for diarrhea DIPHENOXYLATE-ATROPINE 85411846249 No Longer Active Fozia Casper MD Active MACROBID 100 MG ORAL CAPSULE 1 cap by mouth twice daily NITROFURANTOIN MONOHYD MACRO 84221351300 No Longer Active Arie Casper MD Active ZYRTEC ALLERGY 10 MG ORAL CAPSULE 1 po qd CE TIRIZINE HCL 67398039658 No Longer Active Arie Casper MD Active AZITHROMYCIN 250 MG ORAL TABLET 2 po qd x 1 day, then 1 po q d x 4 days AZITHROMYCIN 87753506116 No Longer Active Jessica salgado MASTER MECHANIC 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 PREDNISONE 20 MG ORAL TABLET 2 tabs daily for 3 days, 1 tab daily for 3 days, 1/2 tab daily for 2 days PREDNISONE 21282546010 No Longer Active Jillarlen Heaton MASTER MECHANIC Active PROMETHAZINE HCL 25 MG ORAL TABLET 1 four times a day as nee ded for vomiting PROMETHAZINE HCL 04148389496 No Longer Active Myrna Roberto MD Active BACTRIM DS 800-160 MG ORAL TABLET 1 twice a day 05/30 SULFAMETHOXAZOLE-TRIMETHOPRIM 24599625768 No Longer Active Myrna Roberto MD Active VICKS DAYQUIL SEVERE COLD/FLU TABLET 1 tab every 6 hours prn 201 02/22/17 [id number] TABS 77895608506 No Longer Active Chris Roberto MD Active GUAIFENESIN-CODEINE 100-10 MG/5ML ORAL SYRUP 2 tsp every 6 hours prn GUAIFENESIN-CODEINE 29493028553 No Longer Active Myrna Roberto MD Active NAPROXEN 500 MG ORAL TABLET one tab PO BID NAPR OXEN 60230402271 No Longer Active Myrna Roberto MD Active AUGMENTIN 875-125 MG ORAL TABLET 1 tab by mouth twice daily with food AMOXICILLIN-POT CLAVULANATE 02362534808 No Longer Act zaid Liliana Estrada MD PhD Active AMOXICILLIN 500 MG ORAL CAPSULE 1 tab by mouth 3 times daily 201 02/21/05 AMOXICILLIN 75927738399 No Longer Active Liliana Estrada MD PhD Active TESSALON PERLES 100 MG ORAL CAPSULE 1 tablet by mouth 3 times da cory BENZONATATE 34681680494 No Longer Active Liliana Estrada MD PhD Active FLAGYL 500 MG ORAL TABLET 1 tablet by mouth two times daily 2014 METRONIDAZOLE 86335119658 No Longer Active Nilam Doran tive ZITHROMAX 250 MG ORAL TABLET 2 po today, then 1 po q days 2-5 20 06/08/16 AZITHROMYCIN 24086089316 No Longer Active Arie Casper MD Active VITAMINS 0.8 MG ORAL TABLET take 1 tab po qday [id number] 58560378256 No Longer Active Arie Casper MD Active IBUPROFEN 800 MG ORAL TABLET take one po Q 8 hours 201 02/01/16 IBUPROFEN 83137665605 No Longer Active Arie Casper MD Acti ve [facility] TUSSIN COUGH/COLD CF 5-10-100 MG/5ML ORAL LIQUID 2 teasp oons every 4 hours [id number] 26974967611 No Longer Active Blaine Casper MD Active COMTREX COLD/COUGH DAY/NITE MS 5-2-10-325 MG ORAL 2 caps deja ry 4 hours [id number] 23355526832 No Longer Active Da aleksandra Casper MD Active CHLORASEPTIC MAX SORE THROAT 15-10 MG MOUTH/THROAT LOZENGE 1 every 2 hours prn BENZOCAINE-MENTHOL 07189518675 No Longer Active Arie Casper MD Active PREDNISONE 20 MG ORAL TABLET 2 tabs daily for 3 days, 1 tab daily for 3 days, 1/2 tab daily for 2 days PREDNISONE 99932305086 No Longer Active Jose Zhong MD Active AZITHROMYCIN 250 MG ORAL TABLET 2 po qd x 1 day, then 1 po q d x 4 days AZITHROMYCIN 47643469612 No Longer Active Jose Mcwilliams MD Active ZOFRAN ODT 4 MG ORAL TABLET DISINTEGRATING 1 po q6hr PRN Nausea ONDANSETRON 62324308441 No Longer Active Rich Rosales MD Active ZOFRAN 4 MG ORAL TABLET 1 tablet every 4 hours ONDANSETRON HCL 81971635213 No Longer Active Rich Rosales MD Activ e MUCINEX 600 MG ORAL TABLET EXTENDED RELEASE 12 HOUR Ta ke 1-2 tablets every 12 hours GUAIFENESIN 67770069599 No Longer Active Rich Rosales MD Active BACTRIM 400-80 MG ORAL TABLET take one po BID SULFAMETHOXAZOLE-TRIMETHOPRIM 49448127033 No Longer Active Abelardo HERNANDEZ Active AZITHROMYCIN 500 MG ORAL TABLET 1 PO q day x 6 days 20 03/02/23 AZITHROMYCIN 94422848470 No Longer Active Tin HERNANDEZ Activ e ZITHROMAX 250 MG ORAL TABLET 2 po today, then 1 po q days 2-5 20 10/03/08 AZITHROMYCIN 84900038154 No Longer Active Arie Casper MD Active ZITHROMAX 250 MG ORAL TABLET 2 po today, then 1 po q days 2-5 20 09/23/25 AZITHROMYCIN 80065800724 No Longer Active Arie Casper MD Active AMOXICILLIN 500 MG ORAL CAPSULE 1 tab by mouth 3 times daily 201 11/24/09 AMOXICILLIN 95657978922 No Longer Active Arie Casper MD Active BACTRIM DS 800-160 MG ORAL TABLET 1 tab by mouth twice daily 201 11/03/14 TRIMETHOPRIM-SULFAMETHOXAZOLE 41967636978 No Longer Active Fozia Casper MD Active AMOXICILLIN 500 MG ORAL TABLET take 1 tab po TID 08/05 AMOXICILLIN 37547430775 No Longer Active Arie Casper MD Acti ve BACTRIM DS 800-160 MG ORAL TABLET 1 tab by mouth twice daily 201 11/03/14 BACTRIM DS 800-160 MG ORAL TABLET 591235 TRIMETHOPRIM-SULFAMETHOXAZOLE Inactive MUCINEX 600 MG ORAL TABLET EXTENDED RELEASE 12 HOUR Ta ke 1-2 tablets every 12 hours MUCINEX 600 MG ORAL TABLET EXTENDED RELEA SE 12 HOUR GUAIFENESIN Inactive ZOFRAN 4 MG ORAL TABLET 1 tablet every 4 hours ZOFRAN 4 MG ORAL TABLET 708544 ONDANSETRON HCL Inactive ZOFRAN ODT 4 MG ORAL TABLET DISINTEGRATING 1 po q6hr PRN Nausea ZOFRAN ODT 4 MG ORAL TABLET DISINTEGRATING 743563 ONDAN SETRON Inactive CHLORASEPTIC MAX SORE THROAT 15-10 MG MOUTH/THROAT LOZENGE 1 every 2 hours prn CHLORASEPTIC MAX SORE THROAT 15-10 MG MOUTH/THROAT LOZENGE BENZOCAINE-MENTHOL Inactive COMTREX COLD/COUGH DAY/NITE MS 5-2-10-325 MG ORAL 2 caps deja ry 4 hours COMTREX COLD/COUGH DAY/NITE MS 5-2-10-325 MG ORA L [id number] Inactive [facility] TUSSIN COUGH/COLD CF 5-10-100 MG/5ML ORAL LIQUID 2 teasp oons every 4 hours [facility] TUSSIN COUGH/COLD CF 5-10-100 MG/5ML ORAL LI QUID [id number] Inactive IBUPROFEN 800 MG ORAL TABLET take one po Q 8 hours 201 02/01/16 IBUPROFEN 800 MG ORAL TABLET 236347 IBUPROFEN Inactive VITAMINS 0.8 MG ORAL TABLET take 1 tab po qday VITAMINS 0.8 MG ORAL TABLET [id number]-FA Inactive TESSALON PERLES 100 MG ORAL CAPSULE 1 tablet by mouth 3 times da cory TESSALON PERLES 100 MG ORAL CAPSULE 662313 BENZONATATE Inactive AMOXICILLIN 500 MG ORAL CAPSULE 1 tab by mouth 3 times daily 201 02/21/05 AMOXICILLIN 500 MG ORAL CAPSULE 145371 AMOXICILLIN Inactive GUAIFENESIN-CODEINE 100-10 MG/5ML ORAL SYRUP 2 tsp every 6 hours prn GUAIFENESIN-CODEINE 100-10 MG/5ML ORAL SYRUP 084459 GUAIFENESIN-CODEINE Inactive VICKS DAYQUIL SEVERE COLD/FLU TABLET 1 tab every 6 hours prn 201 02/22/17 VICKS DAYQUIL SEVERE COLD/FLU TABLET PHENYLEPHRI [id number] TABS Inactive BACTRIM DS 800-160 MG ORAL TABLET 1 twice a day 05/30 BACTRIM DS 800-160 MG ORAL TABLET 782170 SULFAMETHOXAZOLE-TRIMETHOPRIM Inactiv e PROMETHAZINE HCL 25 MG ORAL TABLET 1 four times a day as nee ded for vomiting PROMETHAZINE HCL 25 MG ORAL TABLET 815742 PROMETHAZINE HCL Inactive ZYRTEC ALLERGY 10 MG ORAL CAPSULE 1 po qd ZYRTEC ALLERGY 10 MG ORAL CAPSULE CETIRIZINE HCL Inactive MACROBID 100 MG ORAL CAPSULE 1 cap by mouth twice daily MACROBID 100 MG ORAL CAPSULE 6336652 NITROFURANTOIN MONOHYD MACRO In active LOMOTIL 2.5-0.025 MG ORAL TABLET 1 to 2 four times a day as needed for diarrhea LOMOTIL 2.5-0.025 MG ORAL TABLET 2380313 DIPHENOXYLATE-ATROPINE Inactive CYCLOBENZAPRINE HCL 10 MG ORAL TABLET 1/2 - 1 tablet b y mouth three times daily as needed for muscle spasm/pain CYCLOBEN ZAPRINE HCL 10 MG ORAL TABLET 564773 CYCLOBENZAPRINE HCL Inactive AMOXICILLIN 500 MG ORAL TABLET 2 tabs twice a day for 10 days 20 07/09/11 AMOXICILLIN 500 MG ORAL TABLET 956380 AMOXICILLIN I nactive LOMOTIL 2.5-0.025 MG ORAL TABLET 1 to 2 four times a day as needed for diarrhea LOMOTIL 2.5-0.025 MG ORAL TABLET 4267876 DIPHENOXYLATE-ATROPINE Inactive ZOFRAN 4 MG ORAL TABLET 1 TAB PO Q 6 HRS PRN NAUSEA 07/10/15 ZOFRAN 4 MG ORAL TABLET 205097 ONDANSETRON HCL Inactive CITRATE OF MAGNESIA ORAL SOLUTION 1 bottle today for constipatio n CITRATE OF MAGNESIA ORAL SOLUTION 7136602 MAGNESIUM CITR ATE Inactive PROMETHAZINE HCL 12.5 MG ORAL TABLET 1 tablet by mouth every 6 hours as needed for nausea/vomiting PROMETHAZINE HCL 12.5 MG ORA L TABLET 333839 PROMETHAZINE HCL Inactive PREDNISONE 20 MG ORAL TABLET 1 tablet twice daily for 2 days, then 1 tablet once daily for 2 days PREDNISONE 20 MG ORAL TABLET 862398 PREDNISONE Inactive ALPRAZOLAM 0.25 MG ORAL TABLET 1 tablet by mouth every 8 hours as needed for stress ALPRAZOLAM 0.25 MG ORAL TABLET 373045 ALPRA ZOLAM Inactive FLONASE 50 MCG/ACT NASAL SUSPENSION 1 spray each nostr il twice daily for allergies and runny nose until gone FLON ASE 50 MCG/ACT NASAL SUSPENSION 2571238 FLUTICASONE PROPIONATE Inactive PREDNISONE 20 MG ORAL TABLET 1 tablet daily for airway inflammat ion PREDNISONE 20 MG ORAL TABLET 186018 PREDNISONE Arlen ctive NAPROXEN 500 MG ORAL TABLET Take 1 tab BID NAPROXEN 500 MG ORAL TABLET 533006 NAPROXEN Inactive ZOLOFT 50 MG ORAL TABLET 1 tablet by mouth daily 12/08 ZOLOFT 50 MG ORAL TABLET 726285 SERTRALINE HCL Inactive LOMOTIL 2.5-0.025 MG ORAL TABLET 1 tab po four times a day as needed for diarrhea LOMOTIL 2.5-0.025 MG ORAL TABLET 2568096 DIPHENOXYLATE-ATROPINE Inactive CETIRIZINE HCL 10 MG ORAL TABLET 1 po qd PRN Allergies CETIRIZINE HCL 10 MG ORAL TABLET 0680685 CETIRIZINE HCL Inactiv e TUSSIONEX PENNKINETIC ER 10-8 MG/5ML ORAL SUSPENSION E XTENDED RELEASE 5ml po q12hr PRN Cough TUSSIONEX PENNKINETI C ER 10-8 MG/5ML ORAL SUSPENSION EXTENDED RELEASE HYDROCOD POLST-CHLORPHEN POLST I nactive NEXPLANON IMPLANT right arm subcutaneously NEXPLANON IMPLANT ETONOGESTREL IMPL Inactive PROTONIX 40 MG ORAL TABLET DELAYED RELEASE 1 po q a.m. PROTONIX 40 MG ORAL TABLET DELAYED RELEASE 701172 PANTOPRAZOLE SODI UM Inactive CHERATUSSIN AC 100-10 MG/5ML ORAL SYRUP 1 tsp by mouth every 4 hours as needed for cough CHERATUSSIN AC 100-10 MG/5ML ORAL SYRUP 9 14646 GUAIFENESIN-CODEINE Inactive GUAIFENESIN DM 400-20 MG ORAL [...] TID 08/05 AMOXICILLIN 500 MG ORAL TABLET 372277 AMOXICILLIN Inactive AMOXICILLIN 500 MG ORAL CAPSULE 1 tab by mouth 3 times daily 201 11/24/09 AMOXICILLIN 500 MG ORAL CAPSULE 563138 AMOXICILLIN Inactive ZITHROMAX 250 MG ORAL TABLET 2 po today, then 1 po q days 2-5 20 09/23/25 ZITHROMAX 250 MG ORAL TABLET 542977 AZITHROMYCIN Arlen ctive ZITHROMAX 250 MG ORAL TABLET 2 po today, then 1 po q days 2-5 20 10/03/08 ZITHROMAX 250 MG ORAL TABLET 345729 AZITHROMYCIN Arlen ctive AZITHROMYCIN 500 MG ORAL TABLET 1 PO q day x 6 days 20 03/02/23 AZITHROMYCIN 500 MG ORAL TABLET 8641690 AZITHROMYCIN Inactive BACTRIM 400-80 MG ORAL TABLET take one po BID BACTRIM 400- 80 MG ORAL TABLET 029264 SULFAMETHOXAZOLE-TRIMETHOPRIM Inactive AZITHROMYCIN 250 MG ORAL TABLET 2 po qd x 1 day, then 1 po q d x 4 days AZITHROMYCIN 250 MG ORAL TABLET 348336 AZITHROMY ALLISON Inactive PREDNISONE 20 MG ORAL TABLET 2 tabs daily for 3 days, 1 tab daily for 3 days, 1/2 tab daily for 2 days PREDNISONE 20 MG ORAL T ABLET 244533 PREDNISONE Inactive ZITHROMAX 250 MG ORAL TABLET 2 po today, then 1 po q days 2-5 20 06/08/16 ZITHROMAX 250 MG ORAL TABLET 805571 AZITHROMYCIN Arlen ctive FLAGYL 500 MG ORAL TABLET 1 tablet by mouth two times daily 2014 FLAGYL 500 MG ORAL TABLET 052851 METRONIDAZOLE Inacti ve AUGMENTIN 875-125 MG ORAL TABLET 1 tab by mouth twice daily with food AUGMENTIN 875-125 MG ORAL TABLET 389317 AMOXICIL ELSA-POT CLAVULANATE Inactive NAPROXEN 500 MG ORAL TABLET one tab PO BID NAPROXEN 500 MG ORAL TABLET 654494 NAPROXEN Inactive PREDNISONE 20 MG ORAL TABLET 2 tabs daily for 3 days, 1 tab daily for 3 days, 1/2 tab daily for 2 days PREDNISONE 20 MG ORAL T ABLET 543624 PREDNISONE Inactive AZITHROMYCIN 250 MG ORAL TABLET 2 po qd x 1 day, then 1 po q d x 4 days AZITHROMYCIN 250 MG ORAL TABLET 007806 AZITHROMY ALLISON Inactive PREDNISONE 20 MG ORAL TABLET 2 tabs daily for 3 days, 1 tab daily for 3 days, 1/2 tab daily for 2 days PREDNISONE 20 MG ORAL T ABLET 718299 PREDNISONE Inactive ZITHROMAX Z-EMIL 250 MG ORAL TABLET 2 today, then 1 daily for 4 d ays ZITHROMAX Z-EMIL 250 MG ORAL TABLET 386446 AZITHROMYCIN Inactive CEFDINIR 300 MG ORAL CAPSULE 1 po BID x 10 days 12/18 CEFDINIR 300 MG ORAL CAPSULE 20030127 CEFDINIR Inactive CEFDINIR 300 MG ORAL CAPSULE 1 po BID x 10 days CEFDINIR 300 MG ORAL CAPSULE 098506 CEFDINIR Inactive PREDNISONE 20 MG ORAL TABLET 2 tabs daily for 3 days, 1 tab daily for 3 days, 1/2 tab daily for 2 days PREDNISONE 20 MG ORAL T ABLET 677231 PREDNISONE Inactive BACTRIM DS 800-160 MG ORAL TABLET 1 tab by mouth twice daily 201 05/02/30 BACTRIM DS 800-160 MG ORAL TABLET 518373 TRIMETHOPRIM-SULFAMETHOXAZOLE Inactive ZITHROMAX Z-EMIL 250 MG ORAL TABLET 2 today, then 1 daily for 4 d ays ZITHROMAX Z-EMIL 250 MG ORAL TABLET 221859 AZITHROMYCIN Inactive TAMIFLU 75 MG ORAL CAPSULE 1 po BID x 5 days 0 TAMIFLU 75 MG ORAL CAPSULE 096196 OSELTAMIVIR PHOSPHATE Inactive CEFDINIR 300 MG ORAL CAPSULE 1 po BID x 10 days 01/03 CEFDINIR 300 MG ORAL CAPSULE 558649 CEFDINIR Inactive ZITHROMAX Z-EMIL 250 MG TABS Take two tablets today and then 1 tablet daily for 4 days ZITHROMAX Z-EMIL 250 MG TABS 966331 AZITHROM YCIN Inactive Advance Directives Directive Description [...] Unit Range Description Lab Report: CBC, Quant [facility] [place] - Hematology leukocyte count, blood 7.8 10^3/MM^3 [...] Negative Encounters Code Encounter Date Provider Facility CPT-45182 [id number] Vst-Est Level IV 13:30:22 Benedicto Casper MD [facility] CPT-61538 Level 4 Est. Patient 13:05:26 CDT Myrna maldonado MD [facility] [id number] [id number] Vst-Est Level IV 20:50:21 C DT Arie Casper MD [facility] [place]-81403 Level 3 Est. Patient 11:49:34 WHISTLE PUNK Jessica boyd [facility] CPT-06939 Level 3 Est. Patient 14:55:50 WHISTLE PUNK Jose Zhong MD [facility] [place]-57508 Level 3 Est. Patient 10:21:41 WHISTLE PUNK Arie mcqueen MD [facility] CPT-03800 Level 3 Est. Patient 11:35:15 WHISTLE PUNK Arie mcqueen MD [facility] [place]-46942 Level 3 Est. Patient 15:40:28 CDT Brii Are [facility] CPT-34542 Level 3 Est. Patient 16:40:36 CDT Arie mcqueen MD [facility] CPT-61391 Level 4 Est. Patient 15:29:22 WHISTLE PUNK Arie mcqueen MD [facility] CPT-09502 Level 3 Est. Patient 15:18:16 WHISTLE PUNK Jono black [facility] CPT-34049 Level 4 Est. Patient 12:08:40 WHISTLE PUNK Brii Are ll [facility] CPT-85697 Level 3 Est. Patient 09:24:42 CDT Brii Are ll [facility] CPT-38098 Level 3 Est. Patient 09:12:56 CDT Arie mcqueen MD [facility] CPT-29558 Level 3 Est. Patient 16:40:54 CDT Jose Zhong MD [facility] CPT-63350 Level 2 Est. Patient 13:01:13 CDT Brii Are ll [facility] CPT-93540 Level 3 Est. Patient 11:55:30 WHISTLE PUNK Jono black [facility] CPT-79884 Level 3 Est. Patient 09:52:36 WHISTLE PUNK Brii Yepez boris CABRERA [facility] CPT-67233 Level 3 Est. Patient 16:25:33 WHISTLE PUNK Rich Rosales MD [facility]-29897 Level 3 Est. Patient 20:33:55 CDT Arie mcqueen MD [facility] CPT-86528 Level 3 Est. Patient 14:18:20 CDT Rich Rosales MD [facility] CPT-26433 Level 4 Est. Patient 09:34:31 CDT Arie mcqueen MD [facility] [place]-79430 Level 3 Est. Patient 09:08:55 WHISTLE PUNK Liliana vincent MD PhD [facility] CPT-16287 Level 3 Est. Patient 16:44:07 WHISTLE PUNK Arie mcqueen MD [facility] CPT-16673 Level 3 Est. Patient 10:44:27 CDT Arie mcqueen MD [facility] CPT-48644 Level 3 Est. Patient 08:55:41 CDT Jose Zhong MD [facility]-19005 Level 3 Est. Patient 18:37:31 CDT Liliana vincent MD [facility]-74198 Level 3 Est. Patient 14:28:23 CDT Abelardo HERNANDEZ [facility] CPT-72859 Level 3 Est. Patient 15:18:13 WHISTLE PUNK Arie mcqueen MD [facility] CPT-61137 Level 3 Est. Patient 10:11:29 WHISTLE PUNK Arie mcqueen MD [facility] CPT-62832 Level 3 Est. Patient 10:55:57 WHISTLE PUNK Jono black DO [facility] CPT-12487 Level 3 Est. Patient 17:29:05 CDT Arie mcqueen MD [facility] Procedures Code Procedure Name Date Entry Date Standard Desc ription CPT-89432 Nexplanon Removal 15:40:28 CDT CPT-66180 Sono transvag pelvis non OB uterus ovari es cervix - XRAY USE ONLY 08:58:14 WHISTLE PUNK CPT-70850 UA w micro - LAB USE ONLY 16:04:56 WHISTLE PUNK 2015 CPT-17578 Wet Prep/GEN - LAB USE ONLY 16:04:56 WHISTLE PUNK 20 08/10/29 CPT-03102 First Vx - Ix admin via ID I M or jet injects without counseling by physician 16:57:10 CDT CPT-95218 Fluzone Preservative Free Intramuscular Suspension 16:57:10 CDT CPT-J0696 Rocephin 1000 mg (Ceftriaxone) 11:49:23 CDT CPT-J1040 Depo Medrol 80 mg (Methyl Prednisolone A cetate) 11:49:23 CDT CPT-J1100 Decadron 8mg (Dexamethasone) 11:49:23 CDT 2 CPT-54750 Abx/Therapy Injection 11:49:23 CDT CPT-76243 Abx/Therapy Injection 11:49:23 CDT CPT-40824 Abd compl w upright 09:07:26 WHISTLE PUNK CPT-73482 Ear Wash 16:12:47 WHISTLE PUNK CPT-OV Office Visit 11:12:01 CDT CPT-OV Office Visit 15:30:23 CDT CPT-13309 Sono pelvis non OB uterus ovaries cervix 15:50:44 CDT CPT-61919 Hand comp min 3V 16:42:32 CDT CPT-64541 Abd compl w upright 12:17:01 CDT CPT-18744 Nexplanon Placement 15:07:39 WHISTLE PUNK CPT-92188 Removal of IUD 15:07:39 WHISTLE PUNK CPT-63717 TB Tubersol 12:09:32 CDT CPT-73169 TB Tubersol 13:55:43 CDT
--- OUTSIDE RECORDS SUMMARY | 2020-03-03 07:16 | XMS REPORT | Clinical Summary ---
Author Author Admin, Diamante Marcelo Organization [facility] Address Unknown Phone Unavailable Allergies, Adverse Reactions, Alerts Allergy Name Reaction Description Start Date Severity Status Pr ovidrosalie DILAUDID Severe Active Brii Larsno APRN Conditions or Problems Problem Name Problem Code [...] unspecified site Abdominal pain 789.00 Active Brii Larson APRN Abdominal pain, unspecified site Diarrhea 787.91 [...] site; multiple sites Pharyngitis 462 Active Rich oRsales MD Acute pharyngitis Gastroenteritis, acute 558.9 Active [...] A cute pharyngitis Nausea 787.[address]ANSCRIBER Nausea alone URI 465.9 Active Jono Gagnon DO Acu te upper respiratory infections of unspecified site Allergic rhinitis 477.9 Active Brii Christianson PRN Allergic rhinitis, cause unspecified Abdominal pain, right lower quadrant 789.03 Active Jose Zhong MD Abdominal pain, right lower quadrant Urinary frequency 788.41 Inactive Roseann Crawford Urinary frequency Sinusitis - acute 461.9 Active Brii Christianson PRN Acute sinusitis, unspecified Anxiety with depression 300.[address] Dysthymic disorder URI 465.9 Active Jono Gagnon DO Acu te upper respiratory infections of unspecified site Vaginal bleeding 623.8 Active Brii MARROQUIN RN Other specified noninflammatory disorders of vagina High risk sexual behavior V69.2 Active Arie Casper MD High-risk sexual behavior GERD 530.81 Active Arie Casper MD Esophageal reflux FH BREAST CANCER ICD-V16.3 Inactive Jose Marcelo FH COLON CANCER ICD-V16.0 Inactive Jose Zhong MD FH DIABETES ICD-V18.0 Inactive Jose Zhong MD 201 01/29/08 ACUTE FRONTAL SINUSITIS ICD-461.1 Inactive Meghan Estrada MD PhD CYSTITIS ICD-595.9 Inactive Liliana Estrada MD Ph D SINUSITIS ICD-473.9 Inactive Liliana Estrada MD Ph D IUD removal ICD-V25.42 Inactive Liliana Estrada MD PhD Diarrhea ICD-787.91 Inactive Jose Sin D Thumb pain, right ICD-729.5 Inactive Jose pelayo MD Sinusitis, acute ICD-461.9 Inactive Liliana cheema MD PhD Fever ICD-780.60 Inactive Liliana Estrada MD PhD 20 08/12/16 Symptom, cough ICD-786.2 Inactive Liliana Estrada MD PhD Vaginal discharge ICD-623.5 Inactive Liliana lares MD PhD Urinary frequency ICD-788.41 Inactive Roseann willett Medication List Medication Instructions Start Date Stop Date Generic Name NDC Status Provider Patient Instruction LOMOTIL 2.5-0.025 MG TAB 1 tab po four times a day as needed for diarrhea DIPHENOXYLATE-ATROPINE 08165695304 No Longer Active Fozia Casper MD Active ZOLOFT 50 MG TAB 1 tablet by mouth daily SERTRA LINE HCL 74444533691 No Longer Active Arie Casper MD Active NAPROXEN 500 MG TAB Take 1 tab BID NAPROXEN 332 58015605 No Longer Active Arie Casper MD Active NEXPLANON IMPL Left arm subcutaneously ETONOGES TREL IMPL 78526091816 Active Brii Larson APRN Active CEFDINIR 300 MG CAPS 1 po BID x 10 days CEFDINI R 32329165924 No Longer Active Brii Larson APRN Active PREDNISONE 20 MG TAB 1 tablet daily for airway inflammation 2015 PREDNISONE 52112320039 No Longer Active Brii Larson APRN Active CEFDINIR 300 MG CAPS 1 po BID x 10 days CEFDINI R 09427380072 No Longer Active Jono Gagnon DO Active FLONASE 50 MCG/ACT SUSP 1 spray each nostril twice d aily for allergies and runny nose until gone FLUTICASONE PROPIONATE No Longe r Active Jono Gagnon DO Active ALPRAZOLAM 0.25 MG TAB 1 tablet by mouth every 8 hours as ne eded for stress ALPRAZOLAM 70867381467 No Longer Active Jono Gagnon DO Active ZITHROMAX Z-EMIL 250 MG TABS 2 today, then 1 daily for 4 days 201 03/31/18 AZITHROMYCIN 72896223288 No Longer Active Arie Casper MD Active PROTONIX 40 MG ORAL TBEC 1 po q a.m. PANTOPRAZO LE SODIUM 55044282674 Active Arie Casper MD Active PREDNISONE 20 MG TAB 2 tabs daily for 3 days, 1 t ab daily for 3 days, 1/2 tab daily for 2 days PREDNISONE 80859811101 No Longer Active Brii Larson APRN Active PREDNISONE 20 MG TAB 1 tablet twice daily for 2 d ays, then 1 tablet once daily for 2 days PREDNISONE 38433194834 No Longer Active Brii Larson APRN Active PROMETHAZINE HCL 12.5 MG TABS 1 tablet by mouth every 6 hours as needed for nausea/vomiting PROMETHAZINE HCL 19602577902 No Longe r Active Jono Gagnon DO Active CITRATE OF MAGNESIA ORAL SOLN 1 bottle today for constipation 20 07/10/15 MAGNESIUM CITRATE 22090594689 No Longer Active Jono Gagnon DO Active ZOFRAN 4 MG ORAL TABS 1 TAB PO Q 6 HRS PRN NAUSEA 2014 ONDANSETRON HCL 65726386971 No Longer Active Brii Larson APRN A ctive LOMOTIL 2.5-0.025 MG TAB 1 to 2 four times a day as needed f or diarrhea DIPHENOXYLATE-ATROPINE 23497721222 No Longer Active January Larson APRN Active AMOXICILLIN 500 MG TABS 2 tabs twice a day for 10 days AMOXICILLIN 59924340630 No Longer Active Brii Larson APRN Acti ve CYCLOBENZAPRINE HCL 10 MG TABS 1/2 - 1 tablet by mouth three times daily as needed for muscle spasm/pain CYCLOBENZAPRINE HCL 57516249939 No Longer Active Arie Casper MD Active LOMOTIL 2.5-0.025 MG TABS 1 to 2 four times a day as needed for diarrhea DIPHENOXYLATE-ATROPINE 46686899813 No Longer Active D freddy Casepr MD Active MACROBID 100 MG CAP 1 cap by mouth twice daily NITROFURANTOIN MONOHYD MACRO 56101973027 No Longer Active Arie Casper MD Active ZYRTEC ALLERGY 10 MG CAPS 1 po qd CETIRIZINE HCL 22177284657 No Longer Active Arie Casper MD Active AZITHROMYCIN 250 MG TABS 2 po qd x 1 day, then 1 po qd x 4 days AZITHROMYCIN 18232789759 No Longer Active Jessica Heaton APRN Active PREDNISONE 20 MG TAB 2 tabs daily for 3 days, 1 t ab daily for 3 days, 1/2 tab daily for 2 days PREDNISONE 32629555446 No Longer Active Jessica Heaton APRN Active PROMETHAZINE HCL 25 MG TABS 1 four times a day as needed for vomiting PROMETHAZINE HCL 85683243384 No Longer Active Myrna Roberto MD Active BACTRIM DS 800-160 MG TABS 1 twice a day SULFAMETHOXAZOLE-TRIMETHOPRIM 90710837184 No Longer Active Myrna Roberto MD Active VICKS DAYQUIL SEVERE COLD/FLU TABS 1 tab every 6 hours prn 12/10 [id number] TABS 89496327970 No Longer Active Myrna leigh MD Active GUAIFENESIN-CODEINE 100-10 MG/5ML ORAL SYRP 2 tsp every 6 hours prn GUAIFENESIN-CODEINE 43962317283 No Longer Active Myrna Roberto MD Active NAPROXEN 500 MG TAB one tab PO BID NAPROXEN 332 52399795 No Longer Active Myrna Roberto MD Active AUGMENTIN 875-125 MG TAB 1 tab by mouth twice daily with food 08/12/16 AMOXICILLIN-POT CLAVULANATE 19464296352 No Longer Active Liliana Estrada MD PhD Active AMOXICILLIN 500 MG CAP 1 tab by mouth 3 times daily 08/12/16 AMOXICILLIN 92335640986 No Longer Active Liliana Estrada MD PhD Acti ve TESSALON PERLES 100 MG CAP 1 tablet by mouth 3 times daily 11/01 BENZONATATE 73447243905 No Longer Active Liliana Estrada MD PhD Active FLAGYL 500 MG TAB 1 tablet by mouth two times daily 07/11/29 METRONIDAZOLE 55348530804 No Longer Active Nilam Raida Active ZITHROMAX 250 MG TAB 2 po today, then 1 po q days 2-5 AZITHROMYCIN 32311719468 No Longer Active Arie Casper MD Acti ve VITAMINS 0.8 MG TABS take 1 tab po qday 08/08 [id number] 88387050003 No Longer Active Arie Casper MD Active IBUPROFEN 800 MG TABS take one po Q 8 hours IBU PROFEN 39284184978 No Longer Active Arie Casper MD Active [facility] TUSSIN COUGH/COLD CF 5-10-100 MG/5ML LIQD 2 teaspoons ev eliud 4 hours [id number] 87846624621 No Longer Active Blaine Casper MD Active COMTREX COLD/COUGH DAY/NITE MS 5-2-10-325 MG MISC 2 caps deja ry 4 hours [id number] 01747412205 No Longer Active Da aleksandra Casper MD Active CHLORASEPTIC MAX SORE THROAT 15-10 MG LOZG 1 every 2 hours prn 2 BENZOCAINE-MENTHOL 57811293380 No Longer Active Arie Marcelo Active PREDNISONE 20 MG TAB 2 tabs daily for 3 days, 1 t ab daily for 3 days, 1/2 tab daily for 2 days PREDNISONE 92142263461 No Longer Active Jose Zhong MD Active AZITHROMYCIN 250 MG TABS 2 po qd x 1 day, then 1 po qd x 4 days AZITHROMYCIN 14912743380 No Longer Active Jose Zhong MD Active ZOFRAN ODT 4 MG TBDP 1 po q6hr PRN Nausea ONDAN SETRON 75455337856 No Longer Active Rich Rosales MD Active ZOFRAN 4 MG TABS 1 tablet every 4 hours ONDANSE JERRELL HCL 58283038288 No Longer Active Rich Rosales MD Active MUCINEX 600 MG [id number] Take 1-2 tablets every 12 hours GUAIFENESIN 97295673245 No Longer Active Rich Rosales MD Activ e BACTRIM 400-80 MG TABS take one po BID SULFAMETHOXAZOLE-TRIMETHOPRIM 70070268628 No Longer Active Abelardo HERNANDEZ Active AZITHROMYCIN 500 MG TABS 1 PO q day x 6 days AZ ITHROMYCIN 53724123517 No Longer Active Tin HERNANDEZ Active ZITHROMAX 250 MG TAB 2 po today, then 1 po q days 2-5 AZITHROMYCIN 57072967761 No Longer Active Arie Casper MD Acti ve ZITHROMAX 250 MG TAB 2 po today, then 1 po q days 2-5 AZITHROMYCIN 45612905990 No Longer Active Arie Casper MD Acti ve AMOXICILLIN 500 MG CAP 1 tab by mouth 3 times daily 20 09/23/20 AMOXICILLIN 14828695404 No Longer Active Arie Casper MD Acti ve BACTRIM DS 800-160 MG TAB 1 tab by mouth twice daily 2 TRIMETHOPRIM-SULFAMETHOXAZOLE 89019213749 No Longer Active Arie Casper MD Active AMOXICILLIN 500 MG TABS take 1 tab po TID AMOXI CILLIN 68947089499 No Longer Active Arie Casper MD Active BACTRIM DS 800-160 MG TAB 1 tab by mouth twice daily 2 BACTRIM DS 800-160 MG TAB 327047 TRIMETHOPRIM-SULFAMETHOXAZOLE Inac tive MUCINEX 600 MG [id number] Take 1-2 tablets every 12 hours MUCINEX 600 MG [id number] GUAIFENESIN Inactive ZOFRAN 4 MG TABS 1 tablet every 4 hours ZOFRAN 4 MG TABS 282582 ONDANSETRON HCL Inactive ZOFRAN ODT 4 MG TBDP 1 po q6hr PRN Nausea ZOFRAN ODT 4 MG TBDP 785778 ONDANSETRON Inactive CHLORASEPTIC MAX SORE THROAT 15-10 MG LOZG 1 every 2 hours prn 2 /04/30 CHLORASEPTIC MAX SORE THROAT 15-10 MG LOZG BENZO ARINA-MENTHOL Inactive COMTREX COLD/COUGH DAY/NITE MS 5-2-10-325 MG MISC 2 caps deja ry 4 hours COMTREX COLD/COUGH DAY/NITE MS 5-2-10-325 MG MIS C [id number] Inactive [facility] TUSSIN COUGH/COLD CF 5-10-100 MG/5ML LIQD 2 teaspoons ev eliud 4 hours [facility] TUSSIN COUGH/COLD CF 5-10-100 MG/5ML LIQD [id number] Inactive IBUPROFEN 800 MG TABS take one po Q 8 hours IBUPROFEN 800 MG TABS IBUPROFEN Inactive VITAMINS 0.8 MG TABS take 1 tab po qday 08/08 VITAMINS 0.8 MG TABS [id number] Inactive TESSALON PERLES 100 MG CAP 1 tablet by mouth 3 times daily 11/01 TESSALON PERLES 100 MG CAP 778320 BENZONATATE Inact zaid AMOXICILLIN 500 MG CAP 1 tab by mouth 3 times daily 08/12/16 AMOXICILLIN 500 MG CAP 053707 AMOXICILLIN Inactive GUAIFENESIN-CODEINE 100-10 MG/5ML ORAL SYRP 2 tsp every 6 hours prn GUAIFENESIN-CODEINE 100-10 MG/5ML ORAL SYRP 648468 GUAIFENESIN-CODEINE Inactive VICKS DAYQUIL SEVERE COLD/FLU TABS 1 tab every 6 hours prn 12/10 VICKS DAYQUIL SEVERE COLD/FLU TABS PHENYLEPHRINE -DM-GG-APAP TABS Inactive BACTRIM DS 800-160 MG TABS 1 twice a day BACTRIM DS 800- 160 MG TABS 329078 SULFAMETHOXAZOLE-TRIMETHOPRIM Inactive PROMETHAZINE HCL 25 MG TABS 1 four times a day as needed for vomiting PROMETHAZINE HCL 25 MG TABS 451519 PROMETHAZINE HCL Inactive ZYRTEC ALLERGY 10 MG CAPS 1 po qd ZY RTEC ALLERGY 10 MG CAPS CETIRIZINE HCL Inactive MACROBID 100 MG CAP 1 cap by mouth twice daily MACROBID 100 MG CAP 7297248 NITROFURANTOIN MONOHYD MACRO Inactive LOMOTIL 2.5-0.025 MG TABS 1 to 2 four times a day as needed for diarrhea LOMOTIL 2.5-0.025 MG TABS 1831248 DIPHENOXYLATE-A TROPINE Inactive CYCLOBENZAPRINE HCL 10 MG TABS 1/2 - 1 tablet by mouth three times daily as needed for muscle spasm/pain CYCLOBENZAP RINE HCL 10 MG TABS 502724 CYCLOBENZAPRINE HCL Inactive AMOXICILLIN 500 MG TABS 2 tabs twice a day for 10 days AMOXICILLIN 500 MG TABS 266946 AMOXICILLIN Inactive LOMOTIL 2.5-0.025 MG TAB 1 to 2 four times a day as needed f or diarrhea LOMOTIL 2.5-0.025 MG TAB 4701819 DIPHENOXYLATE-AT ROPINE Inactive ZOFRAN 4 MG ORAL TABS 1 TAB PO Q 6 HRS PRN NAUSEA 2014 ZOFRAN 4 MG ORAL TABS 709033 ONDANSETRON HCL Inactive CITRATE OF MAGNESIA ORAL SOLN 1 bottle today for constipation 20 07/10/15 CITRATE OF MAGNESIA ORAL SOLN 2564150 MAGNESIUM CITRATE Inactive PROMETHAZINE HCL 12.5 MG TABS 1 tablet by mouth every 6 hours as needed for nausea/vomiting PROMETHAZINE HCL 12.5 MG TABS 843080 PROMETHAZINE HCL Inactive PREDNISONE 20 MG TAB 1 tablet twice daily for 2 d ays, then 1 tablet once daily for 2 days PREDNISONE 20 MG TAB 913876 PREDNISONE Inac tive ALPRAZOLAM 0.25 MG TAB 1 tablet by mouth every 8 hours as ne eded for stress ALPRAZOLAM 0.25 MG TAB 556386 ALPRAZOLAM Inact zaid FLONASE 50 MCG/ACT SUSP 1 spray each nostril twice d aily for allergies and runny nose until gone FLONASE 50 MCG/ACT SUSP F LUTICASONE PROPIONATE Inactive PREDNISONE 20 MG TAB 1 tablet daily for airway inflammation 2015 PREDNISONE 20 MG TAB 543355 PREDNISONE Inactive NAPROXEN 500 MG TAB Take 1 tab BID NAPROXEN 500 MG TAB 493584 NAPROXEN Inactive ZOLOFT 50 MG TAB 1 tablet by mouth daily ZOLOFT 50 MG TAB 788064 SERTRALINE HCL Inactive LOMOTIL 2.5-0.025 MG TAB 1 tab po four times a day as needed for diarrhea LOMOTIL 2.5-0.025 MG TAB 8688501 DIPHENOXYLATE-AT ROPINE Inactive AMOXICILLIN 500 MG TABS take 1 tab po TID AMOXICILLIN 500 MG TABS 798060 AMOXICILLIN Inactive AMOXICILLIN 500 MG CAP 1 tab by mouth 3 times daily 09/23/20 AMOXICILLIN 500 MG CAP 516659 AMOXICILLIN Inactive ZITHROMAX 250 MG TAB 2 po today, then 1 po q days 2-5 ZITHROMAX 250 MG TAB 3776309 AZITHROMYCIN Inactive ZITHROMAX 250 MG TAB 2 po today, then 1 po q days 2-5 ZITHROMAX 250 MG TAB 2386190 AZITHROMYCIN Inactive AZITHROMYCIN 500 MG TABS 1 PO q day x 6 days 3 AZITHROMYCIN 500 MG TABS 7592380 AZITHROMYCIN Inactive BACTRIM 400-80 MG TABS take one po BID BA CTRIM 400-80 MG TABS 964591 SULFAMETHOXAZOLE-TRIMETHOPRIM Inactive AZITHROMYCIN 250 MG TABS 2 po qd x 1 day, then 1 po qd x 4 days AZITHROMYCIN 250 MG TABS 2743927 AZITHROMYCIN Inactiv e PREDNISONE 20 MG TAB 2 tabs daily for 3 days, 1 t ab daily for 3 days, 1/2 tab daily for 2 days PREDNISONE 20 MG TAB 622784 PREDNISON E Inactive ZITHROMAX 250 MG TAB 2 po today, then 1 po q days 2-5 ZITHROMAX 250 MG TAB 0508862 AZITHROMYCIN Inactive FLAGYL 500 MG TAB 1 tablet by mouth two times daily 07/11/29 FLAGYL 500 MG TAB 120869 METRONIDAZOLE Inactive AUGMENTIN 875-125 MG TAB 1 tab by mouth twice daily with food 20 08/12/16 AUGMENTIN 875-125 MG TAB 128210 AMOXICILLIN-POT CLAVULA ANGELO Inactive NAPROXEN 500 MG TAB one tab PO BID NAPROXEN 500 MG TAB 606045 NAPROXEN Inactive PREDNISONE 20 MG TAB 2 tabs daily for 3 days, 1 t ab daily for 3 days, 1/2 tab daily for 2 days PREDNISONE 20 MG TAB 439510 PREDNISON E Inactive AZITHROMYCIN 250 MG TABS 2 po qd x 1 day, then 1 po qd x 4 days AZITHROMYCIN 250 MG TABS 4972910 AZITHROMYCIN Inactiv e PREDNISONE 20 MG TAB 2 tabs daily for 3 days, 1 t ab daily for 3 days, 1/2 tab daily for 2 days PREDNISONE 20 MG TAB 702461 PREDNISON E Inactive ZITHROMAX Z-EMIL 250 MG TABS 2 today, then 1 daily for 4 days 201 03/31/18 ZITHROMAX Z-EMIL 250 MG TABS 9669629 AZITHROMYCIN Inac tive CEFDINIR 300 MG CAPS 1 po BID x 10 days C EFDINIR 300 MG CAPS 301823 CEFDINIR Inactive CEFDINIR 300 MG CAPS 1 po BID x 10 days C EFDINIR 300 MG CAPS 629488 CEFDINIR Inactive Advance Directives Directive Description Start Date [...] Value Unit Range Description blood pressure, diastolic - 8462-4 85 mm[Hg] BP kennedy blood pressure, systolic - 8480-6 114 mm[Hg] BP sys pulse rate E&M - 8867-4 82 /min H eart rate temperature E&M 99.7 [degF] Body temp erature weight E&M - 3141-9 171 [lb_av] Weigh t Measured blood pressure, diastolic - 8462-4 67 mm[Hg] BP kennedy blood pressure, systolic - 8480-6 102 mm[Hg] BP sys pulse rate E&M - 8867-4 73 /min H eart rate temperature E&M 99 [degF] Body temp erature weight E&M - 3141-9 178.5 [lb_av] Weigh t Measured blood pressure, diastolic - 8462-4 70 mm[Hg] BP kennedy blood pressure, systolic - 8480-6 132 mm[Hg] BP sys pulse rate E&M - 8867-4 92 /min H eart rate temperature E&M 98.5 [degF] Body temp erature weight E&M - 3141-9 169 [lb_av] Weigh t Measured blood pressure, diastolic - 8462-4 65 mm[Hg] BP kennedy blood pressure, systolic - 8480-6 124 mm[Hg] BP sys pulse rate E&M - 8867-4 82 /min H eart rate temperature E&M 99.5 [degF] Body temp erature weight E&M - 3141-9 169 [lb_av] Weigh t Measured blood pressure, diastolic - 8462-4 73 mm[Hg] BP kennedy blood pressure, systolic - 8480-6 120 mm[Hg] BP sys pulse rate E&M - 8867-4 76 /min H eart rate temperature E&M 99.5 [degF] Body temp erature weight E&M - 3141-9 183 [lb_av] Weigh t Measured blood pressure, diastolic - 8462-4 81 mm[Hg] BP kennedy blood pressure, systolic - 8480-6 113 mm[Hg] BP sys pulse rate E&M - 8867-4 90 /min H eart rate temperature E&M 98.8 [degF] Body temp erature weight E&M - 3141-9 178 [lb_av] Weigh t Measured Diagnostic Results Date Name Value Unit Range Description Immunizations: TB Skin Test - Challenge tests PPD results in mm 0 mm Lab Report: CBC W/DIFF, Comp. Metabolic Panel - Chemistry sodium, serum 136 mmol/L 770-366 6597/04/26 carbon dioxide, venous blood 29.9 mmol/L 21.0-32 .0 potassium, serum 4.0 mmol/L 3.5-5.2 chloride, serum 100 mmol/L 98-107 blood glucose 76 mg/dL 65-110 urea nitrogen, blood 9 mg/dL 7-18 creatinine, serum 0.84 mg/dL 0.55-1.30 alanine aminotransferase (SGPT), serum 17 U/L 12-78 aspartate aminotransferase (SGOT), serum 10 U/L 15-37 calcium, serum 8.5 mg/dL 8.5-10.1 bilirubin, serum, total 0.30 mg/dL 0.00-1.00 Lab Report: CBC W/DIFF, Comp. Metabolic Panel - Hematology leukocyte count, blood 15.9 10^3/MM^3 10*3/mm3 4.6-10.2 neutrophils as percent of blood leukocytes 67.2 % 42.2-75.2 monocytes as percent of blood leukocytes 7.1 % 1.7-9.3 lymphocytes as percent of blood leukocytes 20.6 % 20.5-51.1 erythrocyte (RBC) count 4.76 10^6/MM^3 10*6/mm3 4.04-5.4 8 hemoglobin, blood 12.8 g/dL 12.0-16.0 hematocrit, blood 39.0 % 36.0-46.0 mean corpuscular volume, RBC 82 fL 80-97 mean corpuscular hemoglobin, RBC 26.9 pg 27. 0-31.2 mean corpuscular hemoglobin concentration, RBC 32.8 G/DL % 31.8-35.4 red blood cell distribution width 14.1 % 11 .6-14.8 platelet count 284 10^3/MM^3 10*3/mm3 142-424 Lab Report: Chlamydia/GC APTIMA/44298 - Lab chlamydia DNA probe NOT DETECTED NOT DETECTED Lab Report: Chlamydia/GC APTIMA/[id number] - Microbiology Neisseria gonorrhoeae DNA probe NOT DETECTED NO T DETECTED Lab Report: UADIP W/MICRO, AUTO - Chemis try RBC, urine, dipstick Negative Negative protein, total urine random Negative mg/dL Negative Lab Report: UADIP W/MICRO, AUTO - Urinal ysis glucose, urine, semiquantitative Negative Neg ative ketones, urine, by test strip Negative Negati ve bilirubin, urine Negative Negative urine color Yellow Colorless;Lightyellow;St raw;Yellow appearance, urine Clear Clear specific gravity, urine 1.025 1.000-1.030 pH, urine, semiquantitative 7.0 5.0-8.5 urobilinogen, urine, semiquantitative (dipstick) 0.2 Normal leukocyte esterase, urine, by dipstick Negative Negative nitrite, urine, semiquantitative Negative Neg ative Lab Report: [facility], UADIP W/MICRO, AUTO - Chemistry protein, total urine random Negative mg/dL Negative RBC, urine, dipstick Trace Negative human chorionic gonadotropin , urine, qualitative (urine test) Negative Negative Lab Report[facility] UADIP W/MICRO, AUTO - Urinalysis urine color Yellow Colorless;Lightyellow;St raw;Yellow appearance, urine Clear Clear specific gravity, urine 1.020 1.000-1.030 pH, urine, semiquantitative 6.0 5.0-8.5 urobilinogen, urine, semiquantitative (dipstick) 0.2 Normal leukocyte esterase, urine, by dipstick Negative Negative nitrite, urine, semiquantitative Negative Neg ative glucose, urine, semiquantitative Negative Neg ative ketones, urine, by test strip Negative Negati ve bilirubin, urine Negative Negative Encounters Code Encounter Date Provider Facility CPT-81026 Level 4 Est. Patient 15:29:22 NIGHT TIME NANNY Arie mcqueen MD [facility] CPT-24200 Level 3 Est. Patient 15:18:16 NIGHT TIME NANNY Jono black [facility] CPT-04252 Level 4 Est. Patient 12:08:40 NIGHT TIME NANNY Steve COURT TRANSCRIBER [facility] CPT-32657 Level 3 Est. Patient 09:24:42 CDT Brii La [facility] CPT-41349 Level 3 Est. Patient 09:12:56 CDT Arie mcqueen MD [facility]-56972 Level 3 Est. Patient 16:40:54 CDT Jose Zhong MD [facility] CPT-13219 Level 2 Est. Patient 13:01:13 CDT Steve [facility] CPT-46949 Level 3 Est. Patient 11:55:30 NIGHT TIME NANNY Jono black [facility] CPT-06031 Level 3 Est. Patient 09:52:36 NIGHT TIME NANNY Steve COURT TRANSCRIBER [facility] CPT-57812 Level 3 Est. Patient 16:25:33 NIGHT TIME NANNY Rich Rosales MD [facility] CPT-82915 Level 3 Est. Patient 20:33:55 CDT Arie mcqueen MD [facility] CPT-83700 Level 3 Est. Patient 14:18:20 CDT Rich Rosales MD [facility] CPT-69975 Level 4 Est. Patient 09:34:31 CDT Arie mcqueen MD [facility] CPT-74267 Level 3 Est. Patient 09:08:55 NIGHT TIME NANNY Liliana vincent MD PhD [facility] CPT-11742 Level 3 Est. Patient 16:44:07 NIGHT TIME NANNY Arie mcqueen MD [facility] CPT-01823 Level 3 Est. Patient 10:44:27 CDT Arie mcqueen MD [facility] CPT-01696 Level 3 Est. Patient 08:55:41 CDT Jose Zhong MD [facility] CPT-50454 Level 3 Est. Patient 18:37:31 CDT Liliana vincent MD PhD [facility] CPT-74643 Level 3 Est. Patient 14:28:23 CDT Abelardo marroquin PA [facility] CPT-96292 Level 3 Est. Patient 15:18:13 NIGHT TIME NANNY Arie mcqueen MD [facility] CPT-82725 Level 3 Est. Patient 10:11:29 NIGHT TIME NANNY Arie mcqueen MD [facility] CPT-47046 Level 3 Est. Patient 10:55:57 NIGHT TIME NANNY Jono black DO [facility] CPT-44674 Level 3 Est. Patient 17:29:05 CDT Arie mcqueen MD [facility] Procedures Code Procedure Name Date Entry Date Standard Desc ription CPT-12706 Sono transvag pelvis non OB uterus ovari es cervix - XRAY USE ONLY 08:58:14 NIGHT TIME NANNY CPT-64996 UA w micro - LAB USE ONLY 16:04:56 NIGHT TIME NANNY 2015 CPT-41154 Wet Prep/GEN - LAB USE ONLY 16:04:56 NIGHT TIME NANNY 20 08/10/29 CPT-97509 First Vx - Ix admin via ID I M or jet injects without counseling by physician 16:57:10 CDT CPT-96462 Fluzone Preservative Free Intramuscular Suspension 16:57:10 CDT CPT-J0696 Rocephin 1000 mg (Ceftriaxone) 11:49:23 CDT CPT-J1040 Depo Medrol 80 mg (Methyl Prednisolone A cetate) 11:49:23 CDT CPT-J1100 Decadron 8mg (Dexamethasone) 11:49:23 CDT 2 CPT-94752 Abx/Therapy Injection 11:49:23 CDT CPT-12532 Abx/Therapy Injection 11:49:23 CDT CPT-55534 Abd compl w upright 09:07:26 NIGHT TIME NANNY CPT-13003 Ear Wash 16:12:47 NIGHT TIME NANNY CPT-OV Office Visit 11:12:01 CDT CPT-OV Office Visit 15:30:23 CDT CPT-60999 Sono pelvis non OB uterus ovaries cervix 15:50:44 CDT CPT-15360 Hand comp min 3V 16:42:32 CDT CPT-99137 Abd compl w upright 12:17:01 CDT CPT-01316 Nexplanon Placement 15:07:39 NIGHT TIME NANNY CPT-72867 Removal of IUD 15:07:39 NIGHT TIME NANNY CPT-85497 TB Tubersol 12:09:32 CDT CPT-14448 TB Tubersol 13:55:43 CDT
--- OUTSIDE RECORDS SUMMARY | 2020-03-03 07:17 | XMS REPORT | Clinical Summary ---
Author Author Admin, Diamante Marcelo Organization [employer] Address Unknown Phone Unavailable Allergies, Adverse Reactions, Alerts Allergy Name Reaction Description Start Date Severity Status Pr ovider DILAUDID Severe Active Brii Larson APRN Conditions or Problems Problem Name Problem [...] site Abdominal pain 789.00 Active Brii Larson BLACK POWDER GLAZING OPERATOR Abdominal pain, unspecified site Diarrhea 787.91 Resolved [...] cute pharyngitis Nausea 787.02 Active Brii Larson BLACK POWDER GLAZING OPERATOR Nausea alone URI 465.9 Active Jono Gagnon DO Acu te upper respiratory infections of unspecified site Allergic rhinitis 477.9 Active Brii Christianson PRN Allergic rhinitis, cause unspecified Abdominal pain, right lower quadrant 789.03 Active Jose Zhong MD Abdominal pain, right lower quadrant Urinary frequency 788.41 Inactive Roseann Crawford Urinary frequency Urinary frequency 788.41 Active 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, 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 Urinary frequency Sinusitis - acute 461.9 Active Brii Christianson PRN Acute sinusitis, unspecified Anxiety with depression 300.4 Active Glenn Larson BLACK POWDER GLAZING OPERATOR Dysthymic disorder URI 465.9 Active Jono Gagnon DO Acu te upper respiratory infections of unspecified site Vaginal bleeding 623.8 Active Brii MARROQUIN RN Other specified noninflammatory disorders of vagina High risk sexual behavior V69.2 Active Arie Casper MD High-risk sexual behavior GERD 530.81 Active Arie Casper MD Esophageal reflux FH COLON CANCER ICD-V16.0 Inactive Jose Zhong MD DIABETES ICD-V18.0 Inactive Jose Zhong MD 201 01/29/08 ACUTE FRONTAL SINUSITIS ICD-461.1 Inactive Meghan Estrada MD PhD CYSTITIS ICD-595.9 Inactive Liliana Estrada MD Ph D SINUSITIS ICD-473.9 Inactive Liliana Estrada MD Ph D IUD removal ICD-V25.42 Inactive Liliana Estrada MD PhD Diarrhea ICD-787.91 Inactive Jose Marcelo Thumb pain, right ICD-729.5 Inactive Jose pelayo MD BREAST CANCER ICD-V16.3 Inactive Jose Marcelo Symptom, cough ICD-786.2 Inactive Liliana Estrada MD PhD Vaginal discharge ICD-623.5 Inactive Liliana lares MD PhD Sinusitis, acute ICD-461.9 Inactive Liliana cheema MD PhD Fever ICD-780.60 Inactive Liliana Estrada MD PhD 08/12/16 Medication List Medication Instructions Start Date Stop Date Generic Name NDC Status Provider Patient Instruction PREDNISONE 20 MG TAB 2 tabs daily for 3 days, 1 t ab daily for 3 days, 1/2 tab daily for 2 days PREDNISONE 67885091554 No Longer Active Arie Casper MD Active TUSSIONEX PENNKINETIC ER 10-8 MG/5ML LQCR 5ml po q12hr PRN Cough 20 07/02/19 HYDROCOD POLST-CHLORPHEN POLST 12297786707 Active Arie Casper MD Active CETIRIZINE HCL 10 MG ORAL TABS 1 po qd PRN Allergies CETIRIZINE HCL 58439455883 Active Arie Casper MD Active NEXPLANON IMPL right arm subcutaneously ETONOGE STREL IMPL 61155331019 Active Arie Casper MD Active LOMOTIL 2.5-0.025 MG TAB 1 tab po four times a day as needed for diarrhea DIPHENOXYLATE-ATROPINE 97374692622 No Longer Active Fozia Casper MD Active ZOLOFT 50 MG TAB 1 tablet by mouth daily SERTRA LINE HCL 00702510439 No Longer Active Arie Casper MD Active NAPROXEN 500 MG TAB Take 1 tab BID NAPROXEN 332 87132696 No Longer Active Arie Casper MD Active CEFDINIR 300 MG CAPS 1 po BID x 10 days CEFDINI R 46280474410 No Longer Active Brii Larson APRN Active PREDNISONE 20 MG TAB 1 tablet daily for airway inflammation 2015 PREDNISONE 20978304514 No Longer Active Brii Larson APRN Active CEFDINIR 300 MG CAPS 1 po BID x 10 days CEFDINI R 48835272087 No Longer Active Jono Gagnon DO Active FLONASE 50 MCG/ACT SUSP 1 spray each nostril twice d aily for allergies and runny nose until gone FLUTICASONE PROPIONATE No Longe r Active Jono Gagnon DO Active ALPRAZOLAM 0.25 MG TAB 1 tablet by mouth every 8 hours as ne eded for stress ALPRAZOLAM 99522335573 No Longer Active Jono Gagnon DO Active ZITHROMAX Z-EMIL 250 MG TABS 2 today, then 1 daily for 4 days 201 03/31/18 AZITHROMYCIN 10323844860 No Longer Active Arie Casper MD Active PROTONIX 40 MG ORAL TBEC 1 po q a.m. PANTOPRAZO LE SODIUM 52606142422 Active Arie Casper MD Active PREDNISONE 20 MG TAB 2 tabs daily for 3 days, 1 t ab daily for 3 days, 1/2 tab daily for 2 days PREDNISONE 26682498525 No Longer Active Brii Larson APRN Active PREDNISONE 20 MG TAB 1 tablet twice daily for 2 d ays, then 1 tablet once daily for 2 days PREDNISONE 02586554746 No Longer Active Brii Larson APRN Active PROMETHAZINE HCL 12.5 MG TABS 1 tablet by mouth every 6 hours as needed for nausea/vomiting PROMETHAZINE HCL 72015095570 No Longe r Active Jono Gagnon DO Active CITRATE OF MAGNESIA ORAL SOLN 1 bottle today for constipation 20 07/10/15 MAGNESIUM CITRATE 62641261100 No Longer Active Jono Gagnon DO Active ZOFRAN 4 MG ORAL TABS 1 TAB PO Q 6 HRS PRN NAUSEA 2014 ONDANSETRON HCL 78187359500 No Longer Active Brii Larson APRN A ctive LOMOTIL 2.5-0.025 MG TAB 1 to 2 four times a day as needed f or diarrhea DIPHENOXYLATE-ATROPINE 78937162665 No Longer Active January Larson APRN Active AMOXICILLIN 500 MG TABS 2 tabs twice a day for 10 days AMOXICILLIN 16022903089 No Longer Active Brii Larson APRN Acti ve CYCLOBENZAPRINE HCL 10 MG TABS 1/2 - 1 tablet by mouth three times daily as needed for muscle spasm/pain CYCLOBENZAPRINE HCL 33897319753 No Longer Active Arei Casper MD Active LOMOTIL 2.5-0.025 MG TABS 1 to 2 four times a day as needed for diarrhea DIPHENOXYLATE-ATROPINE 70240971373 No Longer Active Fozia Casper MD Active MACROBID 100 MG CAP 1 cap by mouth twice daily NITROFURANTOIN MONOHYD MACRO 68205935645 No Longer Active Arie Casper MD Active ZYRTEC ALLERGY 10 MG CAPS 1 po qd CETIRIZINE HCL 10845176509 No Longer Active Arie Casper MD Active AZITHROMYCIN 250 MG TABS 2 po qd x 1 day, then 1 po qd x 4 days AZITHROMYCIN 67054667322 No Longer Active Jillina Frazell BLACK POWDER GLAZING OPERATOR Active PREDNISONE 20 MG TAB 2 tabs daily for 3 days, 1 t ab daily for 3 days, 1/2 tab daily for 2 days PREDNISONE 29486726246 No Longer Active Jillina Frazell BLACK POWDER GLAZING OPERATOR Active PROMETHAZINE HCL 25 MG TABS 1 four times a day as needed for vomiting PROMETHAZINE HCL 96114394250 No Longer Active Myrna Roberto MD Active BACTRIM DS 800-160 MG TABS 1 twice a day SULFAMETHOXAZOLE-TRIMETHOPRIM 29744700293 No Longer Active Myrna Roberto MD Active VICKS DAYQUIL SEVERE COLD/FLU TABS 1 tab every 6 hours prn 12/10 [id number] TABS 04134449539 No Longer Active Myrna leigh MD Active GUAIFENESIN-CODEINE 100-10 MG/5ML ORAL SYRP 2 tsp every 6 hours prn GUAIFENESIN-CODEINE 24842523662 No Longer Active Myrna Roberto MD Active NAPROXEN 500 MG TAB one tab PO BID NAPROXEN 332 43840108 No Longer Active Myrna Roberto MD Active AUGMENTIN 875-125 MG TAB 1 tab by mouth twice daily with food 08/12/16 AMOXICILLIN-POT CLAVULANATE 35257605962 No Longer Active Liliana Estrada MD PhD Active AMOXICILLIN 500 MG CAP 1 tab by mouth 3 times daily 08/12/16 AMOXICILLIN 63921949308 No Longer Active Liliana Estrada MD PhD Acti ve TESSALON PERLES 100 MG CAP 1 tablet by mouth 3 times daily 11/01 BENZONATATE 53587194432 No Longer Active Liliana Estrada MD PhD Active FLAGYL 500 MG TAB 1 tablet by mouth two times daily 07/11/29 METRONIDAZOLE 55415909321 No Longer Active Nilam Weber Active ZITHROMAX 250 MG TAB 2 po today, then 1 po q days 2-5 AZITHROMYCIN 51842755276 No Longer Active Arie Casper MD Acti ve VITAMINS 0.8 MG TABS take 1 tab po qday 08/08 [id number] 79668478789 No Longer Active Arie Casper MD Active IBUPROFEN 800 MG TABS take one po Q 8 hours IBU PROFEN 69515281349 No Longer Active Arie Casper MD Active [facility] TUSSIN COUGH/COLD CF 5-10-100 MG/5ML LIQD 2 teaspoons ev eliud 4 hours [id number] 41300429917 No Longer Active Blaine Casper MD Active COMTREX COLD/COUGH DAY/NITE MS 5-2-10-325 MG MISC 2 caps deja ry 4 hours [id number] 20694469135 No Longer Active Da aleksandra Casper MD Active CHLORASEPTIC MAX SORE THROAT 15-10 MG LOZG 1 every 2 hours prn 2 BENZOCAINE-MENTHOL 25713572255 No Longer Active Arie Marcelo Active PREDNISONE 20 MG TAB 2 tabs daily for 3 days, 1 t ab daily for 3 days, 1/2 tab daily for 2 days PREDNISONE 38170378967 No Longer Active Jose Zhong MD Active AZITHROMYCIN 250 MG TABS 2 po qd x 1 day, then 1 po qd x 4 days AZITHROMYCIN 96108399143 No Longer Active Jose Zhong MD Active ZOFRAN ODT 4 MG TBDP 1 po q6hr PRN Nausea ONDAN SETRON 07901862769 No Longer Active Rich Rosales MD Active ZOFRAN 4 MG TABS 1 tablet every 4 hours ASUNCION ALLAN HCL 97312613370 No Longer Active Rich Rosales MD Active MUCINEX 600 MG [id number] Take 1-2 tablets every 12 hours GUAIFENESIN 16683550848 No Longer Active Rich Rosales MD Activ e BACTRIM 400-80 MG TABS take one po BID SULFAMETHOXAZOLE-TRIMETHOPRIM 92611259306 No Longer Active Abelardo HERNANDEZ Active AZITHROMYCIN 500 MG TABS 1 PO q day x 6 days AZ ITHROMYCIN 02014356292 No Longer Active Tin HERNANDEZ Active ZITHROMAX 250 MG TAB 2 po today, then 1 po q days 2-5 AZITHROMYCIN 77833693609 No Longer Active Arie Casper MD Acti ve ZITHROMAX 250 MG TAB 2 po today, then 1 po q days 2-5 AZITHROMYCIN 66197067561 No Longer Active Arie Casper MD Acti ve AMOXICILLIN 500 MG CAP 1 tab by mouth 3 times daily 09/23/20 AMOXICILLIN 40115141517 No Longer Active Arie Casper MD Acti ve BACTRIM DS 800-160 MG TAB 1 tab by mouth twice daily 2 TRIMETHOPRIM-SULFAMETHOXAZOLE 45569519793 No Longer Active Arie Casper MD Active AMOXICILLIN 500 MG TABS take 1 tab po TID AMOXI CILLIN 19359401087 No Longer Active Arie Casper MD Active BACTRIM DS 800-160 MG TAB 1 tab by mouth twice daily 2 BACTRIM DS 800-160 MG TAB 684130 TRIMETHOPRIM-SULFAMETHOXAZOLE Inac tive MUCINEX 600 MG VQ87K-MGM Take 1-2 tablets every 12 hours MUCINEX 600 MG OR35S-HBO GUAIFENESIN Inactive ZOFRAN 4 MG TABS 1 tablet every 4 hours ZOFRAN 4 MG TABS 878392 ONDANSETRON HCL Inactive ZOFRAN ODT 4 MG TBDP 1 po q6hr PRN Nausea ZOFRAN ODT 4 MG TBDP 673030 ONDANSETRON Inactive CHLORASEPTIC MAX SORE THROAT 15-10 MG LOZG 1 every 2 hours prn 2 CHLORASEPTIC MAX SORE THROAT 15-10 MG LOZG BENZO ARINA-MENTHOL Inactive COMTREX COLD/COUGH DAY/NITE MS 5-2-10-325 MG MISC 2 caps deja ry 4 hours COMTREX COLD/COUGH DAY/NITE MS 5-2-10-325 MG MIS C [id number] Inactive [facility] TUSSIN COUGH/COLD CF 5-10-100 MG/5ML LIQD 2 teaspoons ev eliud 4 hours [facility] TUSSIN COUGH/COLD CF 5-10-100 MG/5ML LIQD [id number] Inactive IBUPROFEN 800 MG TABS take one po Q 8 hours IBUPROFEN 800 MG TABS IBUPROFEN Inactive VITAMINS 0.8 MG TABS take 1 tab po qday 08/08 VITAMINS 0.8 MG TABS [id number] Inactive TESSALON PERLES 100 MG CAP 1 tablet by mouth 3 times daily 11/01 TESSALON PERLES 100 MG CAP 097498 BENZONATATE Inact zaid AMOXICILLIN 500 MG CAP 1 tab by mouth 3 times daily 08/12/16 AMOXICILLIN 500 MG CAP 856127 AMOXICILLIN Inactive GUAIFENESIN-CODEINE 100-10 MG/5ML ORAL SYRP 2 tsp every 6 hours prn GUAIFENESIN-CODEINE 100-10 MG/5ML ORAL SYRP 360289 GUAIFENESIN-CODEINE Inactive VICKS DAYQUIL SEVERE COLD/FLU TABS 1 tab every 6 hours prn 12/10 VICKS DAYQUIL SEVERE COLD/FLU TABS PHENYLEPHRINE -DM-GG-APAP TABS Inactive BACTRIM DS 800-160 MG TABS 1 twice a day BACTRIM DS 800- 160 MG TABS 001670 SULFAMETHOXAZOLE-TRIMETHOPRIM Inactive PROMETHAZINE HCL 25 MG TABS 1 four times a day as needed for vomiting PROMETHAZINE HCL 25 MG TABS 157832 PROMETHAZINE HCL Inactive ZYRTEC ALLERGY 10 MG CAPS 1 po qd ZY RTEC ALLERGY 10 MG CAPS CETIRIZINE HCL Inactive MACROBID 100 MG CAP 1 cap by mouth twice daily MACROBID 100 MG CAP 9587610 NITROFURANTOIN MONOHYD MACRO Inactive LOMOTIL 2.5-0.025 MG TABS 1 to 2 four times a day as needed for diarrhea LOMOTIL 2.5-0.025 MG TABS 4861947 DIPHENOXYLATE-A TROPINE Inactive CYCLOBENZAPRINE HCL 10 MG TABS 1/2 - 1 tablet by mouth three times daily as needed for muscle spasm/pain CYCLOBENZAP RINE HCL 10 MG TABS 820989 CYCLOBENZAPRINE HCL Inactive AMOXICILLIN 500 MG TABS 2 tabs twice a day for 10 days AMOXICILLIN 500 MG TABS 157619 AMOXICILLIN Inactive LOMOTIL 2.5-0.025 MG TAB 1 to 2 four times a day as needed f or diarrhea LOMOTIL 2.5-0.025 MG TAB 6227669 DIPHENOXYLATE-AT ROPINE Inactive ZOFRAN 4 MG ORAL TABS 1 TAB PO Q 6 HRS PRN NAUSEA 2014 ZOFRAN 4 MG ORAL TABS 322676 ONDANSETRON HCL Inactive CITRATE OF MAGNESIA ORAL SOLN 1 bottle today for constipation 20 07/10/15 CITRATE OF MAGNESIA ORAL SOLN 0214740 MAGNESIUM CITRATE Inactive PROMETHAZINE HCL 12.5 MG TABS 1 tablet by mouth every 6 hours as needed for nausea/vomiting PROMETHAZINE HCL 12.5 MG TABS 370163 PROMETHAZINE HCL Inactive PREDNISONE 20 MG TAB 1 tablet twice daily for 2 d ays, then 1 tablet once daily for 2 days PREDNISONE 20 MG TAB 692187 PREDNISONE Inac tive ALPRAZOLAM 0.25 MG TAB 1 tablet by mouth every 8 hours as ne eded for stress ALPRAZOLAM 0.25 MG TAB 665642 ALPRAZOLAM Inact zaid FLONASE 50 MCG/ACT SUSP 1 spray each nostril twice d aily for allergies and runny nose until gone FLONASE 50 MCG/ACT SUSP 6010108 FLUTICASONE PROPIONATE Inactive PREDNISONE 20 MG TAB 1 tablet daily for airway inflammation 2015 PREDNISONE 20 MG TAB 383594 PREDNISONE Inactive NAPROXEN 500 MG TAB Take 1 tab BID NAPROXEN 500 MG TAB 590144 NAPROXEN Inactive ZOLOFT 50 MG TAB 1 tablet by mouth daily ZOLOFT 50 MG TAB 518024 SERTRALINE HCL Inactive LOMOTIL 2.5-0.025 MG TAB 1 tab po four times a day as needed for diarrhea LOMOTIL 2.5-0.025 MG TAB 2798960 DIPHENOXYLATE-AT ROPINE Inactive AMOXICILLIN 500 MG TABS take 1 tab po TID AMOXICILLIN 500 MG TABS 469211 AMOXICILLIN Inactive AMOXICILLIN 500 MG CAP 1 tab by mouth 3 times daily 09/23/20 AMOXICILLIN 500 MG CAP 100087 AMOXICILLIN Inactive ZITHROMAX 250 MG TAB 2 po today, then 1 po q days 2-5 ZITHROMAX 250 MG TAB 9748791 AZITHROMYCIN Inactive ZITHROMAX 250 MG TAB 2 po today, then 1 po q days 2-5 ZITHROMAX 250 MG TAB 2178655 AZITHROMYCIN Inactive AZITHROMYCIN 500 MG TABS 1 PO q day x 6 days 3 AZITHROMYCIN 500 MG TABS 3910574 AZITHROMYCIN Inactive BACTRIM 400-80 MG TABS take one po BID BA CTRIM 400-80 MG TABS 864452 SULFAMETHOXAZOLE-TRIMETHOPRIM Inactive AZITHROMYCIN 250 MG TABS 2 po qd x 1 day, then 1 po qd x 4 days AZITHROMYCIN 250 MG TABS 8364468 AZITHROMYCIN Inactiv e PREDNISONE 20 MG TAB 2 tabs daily for 3 days, 1 t ab daily for 3 days, 1/2 tab daily for 2 days PREDNISONE 20 MG TAB 385282 PREDNISON E Inactive ZITHROMAX 250 MG TAB 2 po today, then 1 po q days 2-5 ZITHROMAX 250 MG TAB 5935242 AZITHROMYCIN Inactive FLAGYL 500 MG TAB 1 tablet by mouth two times daily 07/11/29 FLAGYL 500 MG TAB 374616 METRONIDAZOLE Inactive AUGMENTIN 875-125 MG TAB 1 tab by mouth twice daily with food 20 08/12/16 AUGMENTIN 875-125 MG TAB 606399 AMOXICILLIN-POT CLAVULA ANGELO Inactive NAPROXEN 500 MG TAB one tab PO BID NAPROXEN 500 MG TAB 258485 NAPROXEN Inactive PREDNISONE 20 MG TAB 2 tabs daily for 3 days, 1 t ab daily for 3 days, 1/2 tab daily for 2 days PREDNISONE 20 MG TAB 551862 PREDNISON E Inactive AZITHROMYCIN 250 MG TABS 2 po qd x 1 day, then 1 po qd x 4 days AZITHROMYCIN 250 MG TABS 3926400 AZITHROMYCIN Inactiv e PREDNISONE 20 MG TAB 2 tabs daily for 3 days, 1 t ab daily for 3 days, 1/2 tab daily for 2 days PREDNISONE 20 MG TAB 839229 PREDNISON E Inactive ZITHROMAX Z-EMIL 250 MG TABS 2 today, then 1 daily for 4 days 201 03/31/18 ZITHROMAX Z-EMIL 250 MG TABS 9611401 AZITHROMYCIN Inac tive CEFDINIR 300 MG CAPS 1 po BID x 10 days C EFDINIR 300 MG CAPS 955926 CEFDINIR Inactive CEFDINIR 300 MG CAPS 1 po BID x 10 days C EFDINIR 300 MG CAPS 711007 CEFDINIR Inactive PREDNISONE 20 MG TAB 2 tabs daily for 3 days, 1 t ab daily for 3 days, 1/2 tab daily for 2 days PREDNISONE 20 MG TAB 829681 PREDNISON E Inactive Advance Directives Directive Description Start Date [...] Range Description blood pressure, diastolic - 8462-4 72 mm[Hg] BP kennedy blood pressure, systolic - 8480-6 103 mm[Hg] BP sys height E&M - 8302-2 66 [in_us] Bdy h eight pulse rate E&M - 8867-4 81 /min H eart rate temperature E&M 99.3 [degF] Body temp erature weight E&M - 3141-9 164 [lb_av] Weigh t Measured blood pressure, diastolic - 8462-4 85 mm[Hg] [...] - 3141-9 169 [lb_av] Weigh t Measured Diagnostic Results Date Name Value Unit Range Description Immunizations: TB Skin Test - Challenge tests PPD results in mm 0 mm Lab Report: Chlamydia/GC APTIMA/[id number] - Lab chlamydia DNA probe NOT DETECTED NOT DETECTED Lab Report: Chlamydia/GC APTIMA/36122 - Microbiology Neisseria gonorrhoeae DNA probe NOT [...] Negative nitrite, urine, semiquantitative Negative Neg ative Encounters Code Encounter Date Provider Facility CPT-20567 Level 3 Est. Patient 16:40:36 CDT Arie mcqueen MD [facility] CPT-72648 Level 4 Est. Patient 15:29:22 SYSTEMS SOFTWARE ENGINEER Arie mcqueen MD [facility] CPT-70301 Level 3 Est. Patient 15:18:16 SYSTEMS SOFTWARE ENGINEER Jono black DO [facility] CPT-56451 Level 4 Est. Patient 12:08:40 SYSTEMS SOFTWARE ENGINEER Brii And erson [facility] CPT-38553 Level 3 Est. Patient 09:24:42 CDT Brii And melinaon BLACK POWDER GLAZING OPERATOR [facility] CPT-98073 Level 3 Est. Patient 09:12:56 CDT Arie mcqueen MD [facility] CPT-57400 Level 3 Est. Patient 16:40:54 CDT Jose Zhong MD [facility] CPT-75087 Level 2 Est. Patient 13:01:13 CDT [facility] so [facility] Level 3 Est. Patient 11:55:30 SYSTEMS SOFTWARE ENGINEER Jono black [facility] CPT-03206 Level 3 Est. Patient 09:52:36 SYSTEMS SOFTWARE ENGINEER Brii La so CABRERA [facility] CPT-66978 Level 3 Est. Patient 16:25:33 SYSTEMS SOFTWARE ENGINEER Rich Rosales MD [facility] CPT-88229 Level 3 Est. Patient 20:33:55 CDT Aire mcqueen MD [facility] CPT-31687 Level 3 Est. Patient 14:18:20 CDT Rich Rosales MD [facility] CPT-55462 Level 4 Est. Patient 09:34:31 CDT Arie mcqueen MD [facility]-65184 Level 3 Est. Patient 09:08:55 SYSTEMS SOFTWARE ENGINEER Liliana vincent MD PhD [facility]-28135 Level 3 Est. Patient 16:44:07 SYSTEMS SOFTWARE ENGINEER Arie mcqueen MD [facility] CPT-59906 Level 3 Est. Patient 10:44:27 CDT Arie mcqueen MD [facility]-81476 Level 3 Est. Patient 08:55:41 CDT Jose Zhong MD [facility]-27318 Level 3 Est. Patient 18:37:31 CDT Liliana vincent MD PhD [facility] CPT-83599 Level 3 Est. Patient 14:28:23 CDT Abelardo HERNANDEZ [facility] CPT-82936 Level 3 Est. Patient 15:18:13 SYSTEMS SOFTWARE ENGINEER Arie mcqueen MD [facility] CPT-14502 Level 3 Est. Patient 10:11:29 SYSTEMS SOFTWARE ENGINEER Arie mcqueen MD [facility] CPT-38717 Level 3 Est. Patient 10:55:57 SYSTEMS SOFTWARE ENGINEER Jono Cheema ee DO [facility] CPT-43764 Level 3 Est. Patient 17:29:05 CDT Arie mcqueen MD [facility] Procedures Code Procedure Name Date Entry Date Standard Desc ription CPT-33440 Sono transvag pelvis non OB uterus ovari es cervix - XRAY USE ONLY 08:58:14 SYSTEMS SOFTWARE ENGINEER CPT-55766 UA w micro - LAB USE ONLY 16:04:56 SYSTEMS SOFTWARE ENGINEER 2015 CPT-51955 Wet Prep/GEN - LAB USE ONLY 16:04:56 SYSTEMS SOFTWARE ENGINEER 20 08/10/29 CPT-27837 First Vx - Ix admin via ID I M or jet injects without counseling by physician 16:57:10 CDT CPT-22039 Fluzone Preservative Free Intramuscular Suspension 16:57:10 CDT CPT-J0696 Rocephin 1000 mg (Ceftriaxone) 11:49:23 CDT CPT-J1040 Depo Medrol 80 mg (Methyl Prednisolone A cetate) 11:49:23 CDT CPT-J1100 Decadron 8mg (Dexamethasone) 11:49:23 CDT 2 CPT-44663 Abx/Therapy Injection 11:49:23 CDT CPT-12105 Abx/Therapy Injection 11:49:23 CDT CPT-30282 Abd compl w upright 09:07:26 SYSTEMS SOFTWARE ENGINEER CPT-50905 Ear Wash 16:12:47 SYSTEMS SOFTWARE ENGINEER CPT-OV Office Visit 11:12:01 CDT CPT-OV Office Visit 15:30:23 CDT CPT-20266 Sono pelvis non OB uterus ovaries cervix 15:50:44 CDT CPT-42880 Hand comp min 3V 16:42:32 CDT CPT-06455 Abd compl w upright 12:17:01 CDT CPT-43354 Nexplanon Placement 15:07:39 SYSTEMS SOFTWARE ENGINEER CPT-73732 Removal of IUD 15:07:39 SYSTEMS SOFTWARE ENGINEER CPT-93961 TB Tubersol 12:09:32 CDT CPT-21790 TB Tubersol 13:55:43 CDT
--- OUTSIDE RECORDS SUMMARY | 2020-03-03 07:17 | XMS REPORT | Clinical Summary ---
Author Author Admin, Diamante Marcelo Organization [facility] [employer] Address Unknown Phone Unavailable Allergies, Adverse Reactions, Alerts Allergy Name Reaction Description Start Date Severity Status Pr ovider DILAUDID Severe Active Brii MARROQUIN RN Conditions or Problems Problem Name Problem Code Onset Date Status Entry Date Provider Comment Standard Description Annotate FH BREAST CANCER V16.3 Resolved Jose hZong MD Family history of malignant neoplasm of [...] of uterus, unspecified Health screening V70.0 Active Rosaenn Crawford Routine general medical examination at a [...] implantable subdermal contraceptiv e Active Brii Russ [employer] TE[employer] Vaginal bleeding 623.8 Active Arie Casper MD Other specified noninflammatory disorders of vagina Influenza like illness 487.1 Active Jose Mcwilliams MD Influenza with other respiratory manifestations Sinusitis 473.9 Active Jessica Heaton [employer]OR TE[employer] Unspecified sinusitis (chronic) BREAST CANCER ICD-V16.3 Inactive Jose Marcelo COLON [...] Generic Name NDC Status Provider Patient Instruction TUSSIONEX PENNKINETIC ER 10-8 MG/5ML ORAL SUSPENSION E XTENDED RELEASE 5ml po q12hr PRN Cough HYDROCOD POLST-CHLORPHEN POLST [id number] Active Arie Casper MD Active GUAIFENESIN DM 400-20 MG ORAL TABLET 1 pill by mouth t wice daily, if needed for cough DEXTROMETHORPHAN-GUAIFENESIN 54644901217 Active Jiborisina Florina CABRERA Active CEFDINIR 300 MG ORAL CAPSULE 1 po BID x 10 days CEFDINIR 37942975452 Active Jillina Franaomi PAREKHN Active CHERATUSSIN AC 100-10 MG/5ML ORAL SYRUP 1 tsp by mouth every 4 hours as needed for cough GUAIFENESIN-CODEINE 33540629177 No Longe r Active Waynellina Florina CABRERA Active TAMIFLU 75 MG ORAL CAPSULE 1 po BID x 5 days 0 OSELTAMIVIR PHOSPHATE 62463394986 No Longer Active Jose Zhong MD Activ e ZITHROMAX Z-EMIL 250 MG ORAL TABLET 2 today, then 1 daily for 4 d ays AZITHROMYCIN 62972828006 No Longer Active Arie Casper MD Active PROTONIX 40 MG ORAL TABLET DELAYED RELEASE 1 po q a.m. PANTOPRAZOLE SODIUM 97776027666 No Longer Active Arie Casper MD Active BACTRIM DS 800-160 MG ORAL TABLET 1 tab by mouth twice daily 201 05/02/30 TRIMETHOPRIM-SULFAMETHOXAZOLE 70822239991 No Longer Active R bianca Crawford Active NEXPLANON IMPLANT right arm subcutaneously ETONOGESTREL IMPL 06520931362 No Longer Active Brii Arell MOTOR TESTER Active TUSSIONEX PENNKINETIC ER 10-8 MG/5ML ORAL SUSPENSION E XTENDED RELEASE 5ml po q12hr PRN Cough HYDROCOD POLST-CHLORPHEN POLST 5 8930996357 No Longer Active Brii Russ [employer]OR TE[employer] Active CETIRIZINE HCL 10 MG ORAL TABLET 1 po qd PRN Allergies CETIRIZINE HCL 70640634673 No Longer Active Brii Russ [employer]OR TE[employer] Activ e PREDNISONE 20 MG ORAL TABLET 2 tabs daily for 3 days, 1 tab daily for 3 days, 1/2 tab daily for 2 days PREDNISONE 27853700585 No Longer Active Arie Casper MD Active LOMOTIL 2.5-0.025 MG ORAL TABLET 1 tab po four times a day as needed for diarrhea DIPHENOXYLATE-ATROPINE 37234665408 No Lo nger Active Arie Casper MD Active ZOLOFT 50 MG ORAL TABLET 1 tablet by mouth daily 12/08 SERTRALINE HCL 45918522548 No Longer Active Arie Casper MD Ac tive NAPROXEN 500 MG ORAL TABLET Take 1 tab BID NAPR OXEN 99414880842 No Longer Active Arie Casper MD Active CEFDINIR 300 MG ORAL CAPSULE 1 po BID x 10 days CEFDINIR 91807623982 No Longer Active Brii Russ APRN Active PREDNISONE 20 MG ORAL TABLET 1 tablet daily for airway inflammat ion PREDNISONE 45304659809 No Longer Active Brii Russ APRN A ctive CEFDINIR 300 MG ORAL CAPSULE 1 po BID x 10 days CEFDINIR 99025013826 No Longer Active Jono Gagnon DO Active FLONASE 50 MCG/ACT NASAL SUSPENSION 1 spray each nostr il twice daily for allergies and runny nose until gone FLUT ICASONE PROPIONATE 61410449628 No Longer Active Jono Gagnon DO Active ALPRAZOLAM 0.25 MG ORAL TABLET 1 tablet by mouth every 8 hours as needed for stress ALPRAZOLAM 69031798672 No Longer Active Jono Gagnon DO Active ZITHROMAX Z-EMIL 250 MG ORAL TABLET 2 today, then 1 daily for 4 d ays AZITHROMYCIN 75673278078 No Longer Active Arie Casper MD Active PREDNISONE 20 MG ORAL TABLET 2 tabs daily for 3 days, 1 tab daily for 3 days, 1/2 tab daily for 2 days PREDNISONE 21112551006 No Longer Active Brii Arell [employer]OR TE[employer] Active PREDNISONE 20 MG ORAL TABLET 1 tablet twice daily for 2 days, then 1 tablet once daily for 2 days PREDNISONE 32323520659 No Longer Active Brii Russ APRN Active PROMETHAZINE HCL 12.5 MG ORAL TABLET 1 tablet by mouth every 6 hours as needed for nausea/vomiting PROMETHAZINE HCL 02332704889 No L onger Active Jono Gagnon DO Active CITRATE OF MAGNESIA ORAL SOLUTION 1 bottle today for constipatio n MAGNESIUM CITRATE 19526117604 No Longer Active Jono Gagnon DO Active ZOFRAN 4 MG ORAL TABLET 1 TAB PO Q 6 HRS PRN NAUSEA 07/10/15 ONDANSETRON HCL 64478854059 No Longer Active Brii Russ APRN Acti ve LOMOTIL 2.5-0.025 MG ORAL TABLET 1 to 2 four times a day as needed for diarrhea DIPHENOXYLATE-ATROPINE 50445895630 No Longer Active January Russ APRN Active AMOXICILLIN 500 MG ORAL TABLET 2 tabs twice a day for 10 days 07/09/11 AMOXICILLIN 16350073145 No Longer Active Brii Areboris CABRERA Active CYCLOBENZAPRINE HCL 10 MG ORAL TABLET 1/2 - 1 tablet b y mouth three times daily as needed for muscle spasm/pain CYCLOBENZAPRINE HCL 47661854017 No Longer Active Arie Casper MD Active LOMOTIL 2.5-0.025 MG ORAL TABLET 1 to 2 four times a day as needed for diarrhea DIPHENOXYLATE-ATROPINE 14958255907 No Longer Active D freddy Casper MD Active MACROBID 100 MG ORAL CAPSULE 1 cap by mouth twice daily NITROFURANTOIN MONOHYD MACRO 73725902455 No Longer Active Arie Casper MD Active ZYRTEC ALLERGY 10 MG ORAL CAPSULE 1 po qd CE TIRIZINE HCL 77575742200 No Longer Active Arie Casper MD Active AZITHROMYCIN 250 MG ORAL TABLET 2 po qd x 1 day, then 1 po q d x 4 days AZITHROMYCIN 03116620863 No Longer Active Jillina Fra naomi [employer]OR TE[employer] Active PREDNISONE 20 MG ORAL TABLET 2 tabs daily for 3 days, 1 tab daily for 3 days, 1/2 tab daily for 2 days PREDNISONE 18468225450 No Longer Active Jillina Fradeepl MOTOR TESTER Active PROMETHAZINE HCL 25 MG ORAL TABLET 1 four times a day as nee ded for vomiting PROMETHAZINE HCL 54287891034 No Longer Active Mynra Roberto MD Active BACTRIM DS 800-160 MG ORAL TABLET 1 twice a day 05/30 SULFAMETHOXAZOLE-TRIMETHOPRIM 88764988635 No Longer Active Myrna Roberto MD Active VICKS DAYQUIL SEVERE COLD/FLU TABLET 1 tab every 6 hours prn 201 02/22/17 [id number] TABS 76731073621 No Longer Active Chris Roberto MD Active GUAIFENESIN-CODEINE 100-10 MG/5ML ORAL SYRUP 2 tsp every 6 hours prn GUAIFENESIN-CODEINE 47859247842 No Longer Active Myrna Roberto MD Active NAPROXEN 500 MG ORAL TABLET one tab PO BID NAPR OXEN 50009188420 No Longer Active Myrna Roberto MD Active AUGMENTIN 875-125 MG ORAL TABLET 1 tab by mouth twice daily with food AMOXICILLIN-POT CLAVULANATE 87444469212 No Longer Act zaid Liliana C Madril MD PhD Active AMOXICILLIN 500 MG ORAL CAPSULE 1 tab by mouth 3 times daily 201 02/21/05 AMOXICILLIN 22280274786 No Longer Active Liliana Estrada MD PhD Active TESSALON PERLES 100 MG ORAL CAPSULE 1 tablet by mouth 3 times da cory BENZONATATE 31010101758 No Longer Active Liliana Estrada MD PhD Active FLAGYL 500 MG ORAL TABLET 1 tablet by mouth two times daily 2014 METRONIDAZOLE 55417857946 No Longer Active Nilamnory Plattkatie Ac tive ZITHROMAX 250 MG ORAL TABLET 2 po today, then 1 po q days 2-5 20 06/08/16 AZITHROMYCIN 58303216190 No Longer Active Arie Casper MD Active VITAMINS 0.8 MG ORAL TABLET take 1 tab po qday [id number] 66021423238 No Longer Active Arie Casper MD Active IBUPROFEN 800 MG ORAL TABLET take one po Q 8 hours 201 02/01/16 IBUPROFEN 46713564242 No Longer Active Arie Casper MD Acti ve [facility] TUSSIN COUGH/COLD CF 5-10-100 MG/5ML ORAL LIQUID 2 teasp oons every 4 hours [id number] 36960173460 No Longer Active Blaine Casper MD Active COMTREX COLD/COUGH DAY/NITE MS 5-2-10-325 MG ORAL 2 caps deja ry 4 hours [id number] 12457003326 No Longer Active Da aleksandra Casper MD Active CHLORASEPTIC MAX SORE THROAT 15-10 MG MOUTH/THROAT LOZENGE 1 every 2 hours prn BENZOCAINE-MENTHOL 46526172630 No Longer Active Arie Casper MD Active PREDNISONE 20 MG ORAL TABLET 2 tabs daily for 3 days, 1 tab daily for 3 days, 1/2 tab daily for 2 days PREDNISONE 82527834800 No Longer Active Jose Zhong MD Active AZITHROMYCIN 250 MG ORAL TABLET 2 po qd x 1 day, then 1 po q d x 4 days AZITHROMYCIN 90395144847 No Longer Active Jose Mcwilliams MD Active ZOFRAN ODT 4 MG ORAL TABLET DISINTEGRATING 1 po q6hr PRN Nausea ONDANSETRON 89826236584 No Longer Active Rich Rosales MD Active ZOFRAN 4 MG ORAL TABLET 1 tablet every 4 hours ONDANSETRON HCL 68560294382 No Longer Active Rich Rosales MD Activ e MUCINEX 600 MG ORAL TABLET EXTENDED RELEASE 12 HOUR Ta ke 1-2 tablets every 12 hours GUAIFENESIN 90387790156 No Longer Active Rich Rosales MD Active BACTRIM 400-80 MG ORAL TABLET take one po BID SULFAMETHOXAZOLE-TRIMETHOPRIM 91223210019 No Longer Active Abelardo HERNANDEZ Active AZITHROMYCIN 500 MG ORAL TABLET 1 PO q day x 6 days 20 03/02/23 AZITHROMYCIN 77727628760 No Longer Active Tin HERNANDEZ Activ e ZITHROMAX 250 MG ORAL TABLET 2 po today, then 1 po q days 2-5 20 10/03/08 AZITHROMYCIN 21362747148 No Longer Active Arie Casper MD Active ZITHROMAX 250 MG ORAL TABLET 2 po today, then 1 po q days 2-5 20 09/23/25 AZITHROMYCIN 65636997163 No Longer Active Arie Casper MD Active AMOXICILLIN 500 MG ORAL CAPSULE 1 tab by mouth 3 times daily 201 11/24/09 AMOXICILLIN 78482076958 No Longer Active Arie Casper MD Active BACTRIM DS 800-160 MG ORAL TABLET 1 tab by mouth twice daily 201 11/03/14 TRIMETHOPRIM-SULFAMETHOXAZOLE 13725104699 No Longer Active Fozia Casper MD Active AMOXICILLIN 500 MG ORAL TABLET take 1 tab po TID 08/05 AMOXICILLIN 31635748269 No Longer Active Arie Casper MD Acti [...] 4 hours ZOFRAN 4 MG ORAL TABLET 265471 ONDANSETRON HCL Inactive ZOFRAN ODT 4 MG ORAL TABLET DISINTEGRATING 1 po q6hr PRN Nausea ZOFRAN ODT 4 MG ORAL TABLET DISINTEGRATING 472520 ONDAN SETRON Inactive CHLORASEPTIC MAX SORE THROAT 15-10 MG MOUTH/THROAT LOZENGE 1 every 2 hours prn CHLORASEPTIC MAX SORE THROAT 15-10 MG MOUTH/THROAT LOZENGE BENZOCAINE-MENTHOL Inactive COMTREX COLD/COUGH DAY/NITE MS 5-2-10-325 MG ORAL 2 caps deja ry 4 hours COMTREX COLD/COUGH DAY/NITE MS 5-2-10-325 MG ORA L [id number] Inactive [facility] TUSSIN COUGH/COLD CF 5-10-100 MG/5ML ORAL LIQUID 2 teasp oons every 4 hours [facility] TUSSIN COUGH/COLD CF 5-10-100 MG/5ML ORAL LI QUID [id number] Inactive IBUPROFEN 800 MG ORAL TABLET take one po Q 8 hours 201 02/01/16 IBUPROFEN 800 MG ORAL TABLET IBUPROFEN Inactive VITAMINS 0.8 MG ORAL TABLET take 1 tab po qday VITAMINS 0.8 MG ORAL TABLET [id number] E-FA Inactive TESSALON PERLES 100 MG ORAL CAPSULE 1 tablet by mouth 3 times da cory TESSALON PERLES 100 MG ORAL CAPSULE 399210 BENZONATATE Inactive AMOXICILLIN 500 MG ORAL CAPSULE 1 tab by mouth 3 times daily 201 02/21/05 AMOXICILLIN 500 MG ORAL CAPSULE 729469 AMOXICILLIN Inactive GUAIFENESIN-CODEINE 100-10 MG/5ML ORAL SYRUP 2 tsp every 6 hours prn GUAIFENESIN-CODEINE 100-10 MG/5ML ORAL SYRUP 422928 GUAIFENESIN-CODEINE Inactive VICKS DAYQUIL SEVERE COLD/FLU TABLET 1 tab every 6 hours prn 201 02/22/17 VICKS DAYQUIL SEVERE COLD/FLU TABLET PHENYLEPHRI [id number]-[id number]-APAP TABS Inactive BACTRIM DS 800-160 MG ORAL TABLET 1 twice a day 05/30 BACTRIM DS 800-160 MG ORAL TABLET 306352 SULFAMETHOXAZOLE-TRIMETHOPRIM Inactiv e PROMETHAZINE HCL 25 MG ORAL TABLET 1 four times a day as nee ded for vomiting PROMETHAZINE HCL 25 MG ORAL TABLET 887290 PROMETHAZINE HCL Inactive ZYRTEC ALLERGY 10 MG ORAL CAPSULE 1 po qd ZYRTEC ALLERGY 10 MG ORAL CAPSULE CETIRIZINE HCL Inactive MACROBID 100 MG ORAL CAPSULE 1 cap by mouth twice daily MACROBID 100 MG ORAL CAPSULE 9834060 NITROFURANTOIN MONOHYD MACRO In active LOMOTIL 2.5-0.025 MG ORAL TABLET 1 to 2 four times a day as needed for diarrhea LOMOTIL 2.5-0.025 MG ORAL TABLET 0570952 DIPHENOXYLATE-ATROPINE Inactive CYCLOBENZAPRINE HCL 10 MG ORAL TABLET 1/2 - 1 tablet b y mouth three times daily as needed for muscle spasm/pain CYCLOBEN ZAPRINE HCL 10 MG ORAL TABLET 235309 CYCLOBENZAPRINE HCL Inactive AMOXICILLIN 500 MG ORAL TABLET 2 tabs twice a day for 10 days 20 07/09/11 AMOXICILLIN 500 MG ORAL TABLET 727388 AMOXICILLIN I nactive LOMOTIL 2.5-0.025 MG ORAL TABLET 1 to 2 four times a day as needed for diarrhea LOMOTIL 2.5-0.025 MG ORAL TABLET 7616707 DIPHENOXYLATE-ATROPINE Inactive ZOFRAN 4 MG ORAL TABLET 1 TAB PO Q 6 HRS PRN NAUSEA 20 07/10/15 ZOFRAN 4 MG ORAL TABLET 694523 ONDANSETRON HCL Inactive CITRATE OF MAGNESIA ORAL SOLUTION 1 bottle today for constipatio n CITRATE OF MAGNESIA ORAL SOLUTION 2943633 MAGNESIUM CITR ATE Inactive PROMETHAZINE HCL 12.5 MG ORAL TABLET 1 tablet by mouth every 6 hours as needed for nausea/vomiting PROMETHAZINE HCL 12.5 MG ORA L TABLET 208974 PROMETHAZINE HCL Inactive PREDNISONE 20 MG ORAL TABLET 1 tablet twice daily for 2 days, then 1 tablet once daily for 2 days PREDNISONE 20 MG ORAL TABLET 345390 PREDNISONE Inactive ALPRAZOLAM 0.25 MG ORAL TABLET 1 tablet by mouth every 8 hours as needed for stress ALPRAZOLAM 0.25 MG ORAL TABLET 040862 ALPRA ZOLAM Inactive FLONASE 50 MCG/ACT NASAL SUSPENSION 1 spray each nostr il twice daily for allergies and runny nose until gone FLON ASE 50 MCG/ACT NASAL SUSPENSION 6682455 FLUTICASONE PROPIONATE Inactive PREDNISONE 20 MG ORAL TABLET 1 tablet daily for airway inflammat ion PREDNISONE 20 MG ORAL TABLET 504339 PREDNISONE [facility] ctive NAPROXEN 500 MG ORAL TABLET Take 1 tab BID NAPROXEN 500 MG ORAL TABLET 578670 NAPROXEN Inactive ZOLOFT 50 MG ORAL TABLET 1 tablet by mouth daily 12/08 ZOLOFT 50 MG ORAL TABLET 503583 SERTRALINE HCL Inactive LOMOTIL 2.5-0.025 MG ORAL TABLET 1 tab po four times a day as needed for diarrhea LOMOTIL 2.5-0.025 MG ORAL TABLET 6677145 DIPHENOXYLATE-ATROPINE Inactive CETIRIZINE HCL 10 MG ORAL TABLET 1 po qd PRN Allergies CETIRIZINE HCL 10 MG ORAL TABLET 5051784 CETIRIZINE HCL Inactiv e TUSSIONEX PENNKINETIC ER 10-8 MG/5ML ORAL SUSPENSION E XTENDED RELEASE 5ml po q12hr PRN Cough TUSSIONEX PENNKINETI C ER 10-8 MG/5ML ORAL SUSPENSION EXTENDED RELEASE HYDROCOD POLST-CHLORPHEN POLST I nactive NEXPLANON IMPLANT right arm subcutaneously NEXPLANON IMPLANT ETONOGESTREL IMPL Inactive PROTONIX 40 MG ORAL TABLET DELAYED RELEASE 1 po q a.m. PROTONIX 40 MG ORAL TABLET DELAYED RELEASE 588902 PANTOPRAZOLE SODI UM Inactive CHERATUSSIN AC 100-10 MG/5ML ORAL SYRUP 1 tsp by mouth every 4 hours as needed for cough CHERATUSSIN AC 100-10 MG/5ML ORAL SYRUP 9 99716 GUAIFENESIN-CODEINE Inactive AMOXICILLIN 500 MG ORAL TABLET take 1 tab po TID 08/05 AMOXICILLIN 500 MG ORAL TABLET 415642 AMOXICILLIN Inactive AMOXICILLIN 500 MG ORAL CAPSULE 1 tab by mouth 3 times daily 201 11/24/09 AMOXICILLIN 500 MG ORAL CAPSULE 439635 AMOXICILLIN Inactive ZITHROMAX 250 MG ORAL TABLET 2 po today, then 1 po q days 2-5 20 09/23/25 ZITHROMAX 250 MG ORAL TABLET 594711 AZITHROMYCIN [facility] ctive ZITHROMAX 250 MG ORAL TABLET 2 po today, then 1 po q days 2-5 20 10/03/08 ZITHROMAX 250 MG ORAL TABLET 580557 AZITHROMYCIN [place] ctive AZITHROMYCIN 500 MG ORAL TABLET 1 PO q day x 6 days 03/02/23 AZITHROMYCIN 500 MG ORAL TABLET 2627621 AZITHROMYCIN Inactive BACTRIM 400-80 MG ORAL TABLET take one po BID BACTRIM 400- 80 MG ORAL TABLET 434818 SULFAMETHOXAZOLE-TRIMETHOPRIM Inactive AZITHROMYCIN 250 MG ORAL TABLET 2 po qd x 1 day, then 1 po q d x 4 days AZITHROMYCIN 250 MG ORAL TABLET 067408 AZITHROMY ALLISON Inactive PREDNISONE 20 MG ORAL TABLET 2 tabs daily for 3 days, 1 tab daily for 3 days, 1/2 tab daily for 2 days PREDNISONE 20 MG ORAL T ABLET 037428 PREDNISONE Inactive ZITHROMAX 250 MG ORAL TABLET 2 po today, then 1 po q days 2-5 20 06/08/16 ZITHROMAX 250 MG ORAL TABLET 429884 AZITHROMYCIN [place] ctive FLAGYL 500 MG ORAL TABLET 1 tablet by mouth two times daily 2014 FLAGYL 500 MG ORAL TABLET 384767 METRONIDAZOLE Inacti ve AUGMENTIN 875-125 MG ORAL TABLET 1 tab by mouth twice daily with food AUGMENTIN 875-125 MG ORAL TABLET 147747 AMOXICIL ELSA-POT CLAVULANATE Inactive NAPROXEN 500 MG ORAL TABLET one tab PO BID NAPROXEN 500 MG ORAL TABLET 637311 NAPROXEN Inactive PREDNISONE 20 MG ORAL TABLET 2 tabs daily for 3 days, 1 tab daily for 3 days, 1/2 tab daily for 2 days PREDNISONE 20 MG ORAL T ABLET 628139 PREDNISONE Inactive AZITHROMYCIN 250 MG ORAL TABLET 2 po qd x 1 day, then 1 po q d x 4 days AZITHROMYCIN 250 MG ORAL TABLET 255173 AZITHROMY ALLISON Inactive PREDNISONE 20 MG ORAL TABLET 2 tabs daily for 3 days, 1 tab daily for 3 days, 1/2 tab daily for 2 days PREDNISONE 20 MG ORAL T ABLET 490926 PREDNISONE Inactive ZITHROMAX Z-EMIL 250 MG ORAL TABLET 2 today, then 1 daily for 4 d ays ZITHROMAX Z-EMIL 250 MG ORAL TABLET 742545 AZITHROMYCIN Inactive CEFDINIR 300 MG ORAL CAPSULE 1 po BID x 10 days 12/18 CEFDINIR 300 MG ORAL CAPSULE 546200 CEFDINIR Inactive CEFDINIR 300 MG ORAL CAPSULE 1 po BID x 10 days CEFDINIR 300 MG ORAL CAPSULE 497320 CEFDINIR Inactive PREDNISONE 20 MG ORAL TABLET 2 tabs daily for 3 days, 1 tab daily for 3 days, 1/2 tab daily for 2 days PREDNISONE 20 MG ORAL T ABLET 040410 PREDNISONE Inactive BACTRIM DS 800-160 MG ORAL TABLET 1 tab by mouth twice daily 201 05/02/30 BACTRIM DS 800-160 MG ORAL TABLET 052569 TRIMETHOPRIM-SULFAMETHOXAZOLE Inactive ZITHROMAX Z-EMIL 250 MG ORAL TABLET 2 today, then 1 daily for 4 d ays ZITHROMAX Z-EMIL 250 MG ORAL TABLET 975238 AZITHROMYCIN Inactive TAMIFLU 75 MG ORAL CAPSULE 1 po BID x 5 days 0 TAMIFLU 75 MG ORAL CAPSULE 446586 OSELTAMIVIR PHOSPHATE Inactive Advance Directives Directive Description Start Date [...] Value Unit Range Description blood pressure, diastolic 83 mm[Hg] BP kennedy [...] 72 mm[Hg] BP kennedy blood pressure, systolic 103 mm[Hg] BP sys height E&M 66 [in_us] Bdy height pulse rate E&M 81 /min Heart rate temperature E&M 99.3 [degF] Body temp erature weight E&M 164 [lb_av] Weight Measure d Diagnostic Results Date Name Value Unit Range Description Lab Report: CBC, Quant [facility] - Hematology leukocyte count, blood 7.8 10^3/MM^3 [...] count 263 10^3/MM^3 10*3/mm3 142-424 Lab Report: UADIP W/MICRO, AUTO - Chemis [...] 1.020 1.000-1.030 pH, urine, semiquantitative 5.5 5.0-8.5 Encounters Code Encounter Date Provider Facility CPT-18950 Level 3 Est. Patient 11:49:34 JAVASCRIPT PROGRAMMER Jessica boyd [facility] [place] CPT-23562 Level 3 Est. Patient 14:55:50 JAVASCRIPT PROGRAMMER Jose Zhong MD [facility] CPT-99886 Level 3 Est. Patient 10:21:41 JAVASCRIPT PROGRAMMER Arie mcqueen MD [facility] CPT-03532 Level 3 Est. Patient 11:35:15 JAVASCRIPT PROGRAMMER Arie mcqueen MD [facility] CPT-31101 Level 3 Est. Patient 15:40:28 CDT Brii escalante [facility] [place] CPT-71162 Level 3 Est. Patient 16:40:36 CDT Arie mcqueen MD [facility] CPT-97073 Level 4 Est. Patient 15:29:22 JAVASCRIPT PROGRAMMER Arie mcqueen MD [facility] CPT-98659 Level 3 Est. Patient 15:18:16 JAVASCRIPT PROGRAMMER Jono black DO [facility] CPT-98067 Level 4 Est. Patient 12:08:40 JAVASCRIPT PROGRAMMER Brii Are ll MOTOR TESTER [facility] CPT-00096 Level 3 Est. Patient 09:24:42 CDT Brii Are ll MOTOR TESTER [facility] CPT-16422 Level 3 Est. Patient 09:12:56 CDT Arie mcqueen MD [facility] CPT-45025 Level 3 Est. Patient 16:40:54 CDT Jose Zhong MD [facility] CPT-72317 Level 2 Est. Patient 13:01:13 CDT Brii Are ll [facility] [place] CPT-75596 Level 3 Est. Patient 11:55:30 JAVASCRIPT PROGRAMMER Jono black [facility] CPT-29094 Level 3 Est. Patient 09:52:36 JAVASCRIPT PROGRAMMER Brii Are ll [facility] CPT-61928 Level 3 Est. Patient 16:25:33 JAVASCRIPT PROGRAMMER Rich Rosales MD [facility] CPT-51645 Level 3 Est. Patient 20:33:55 CDT Arie mcqueen MD [facility] CPT-45088 Level 3 Est. Patient 14:18:20 CDT Rich Rosales MD [facility] CPT-38130 Level 4 Est. Patient 09:34:31 CDT Arie mcqueen MD [facility] CPT-01278 Level 3 Est. Patient 09:08:55 JAVASCRIPT PROGRAMMER Liliana vincent MD PhD [facility] CPT-72299 Level 3 Est. Patient 16:44:07 JAVASCRIPT PROGRAMMER Arie mcqueen MD [facility] CPT-34205 Level 3 Est. Patient 10:44:27 CDT Arie mcqueen MD [facility] CPT-38480 Level 3 Est. Patient 08:55:41 CDT Jose Zhong MD [facility] CPT-79448 Level 3 Est. Patient 18:37:31 CDT Liliana vincent MD PhD [facility] CPT-21590 Level 3 Est. Patient 14:28:23 CDT Abelardo HERNANDEZ [facility] CPT-88892 Level 3 Est. Patient 15:18:13 JAVASCRIPT PROGRAMMER Arie mcqueen MD [facility] CPT-14413 Level 3 Est. Patient 10:11:29 JAVASCRIPT PROGRAMMER Arie mcqueen MD [facility] CPT-55123 Level 3 Est. Patient 10:55:57 JAVASCRIPT PROGRAMMER Jono Cheema ee DO [facility] CPT-17403 Level 3 Est. Patient 17:29:05 CDT Arie mcqueen MD [facility] Procedures Code Procedure Name Date Entry Date Standard Desc ription CPT-11594 Nexplanon Removal 15:40:28 CDT CPT-01770 Sono transvag pelvis non OB uterus ovari es cervix - XRAY USE ONLY 08:58:14 JAVASCRIPT PROGRAMMER CPT-12957 UA w micro - LAB USE ONLY 16:04:56 JAVASCRIPT PROGRAMMER 2015 CPT-36029 Wet Prep/GEN - LAB USE ONLY 16:04:56 JAVASCRIPT PROGRAMMER 20 08/10/29 CPT-64994 First Vx - Ix admin via ID I M or jet injects without counseling by physician 16:57:10 CDT CPT-65659 Fluzone Preservative Free Intramuscular Suspension 16:57:10 CDT CPT-J0696 Rocephin 1000 mg (Ceftriaxone) 11:49:23 CDT CPT-J1040 Depo Medrol 80 mg (Methyl Prednisolone A cetate) 11:49:23 CDT CPT-J1100 Decadron 8mg (Dexamethasone) 11:49:23 CDT 2 CPT-00014 Abx/Therapy Injection 11:49:23 CDT CPT-01257 Abx/Therapy Injection 11:49:23 CDT CPT-47329 Abd compl w upright 09:07:26 JAVASCRIPT PROGRAMMER CPT-50330 Ear Wash 16:12:47 JAVASCRIPT PROGRAMMER CPT-OV Office Visit 11:12:01 CDT CPT-OV Office Visit 15:30:23 CDT CPT-43293 Sono pelvis non OB uterus ovaries cervix 15:50:44 CDT CPT-21605 Hand comp min 3V 16:42:32 CDT CPT-09014 Abd compl w upright 12:17:01 CDT CPT-15301 Nexplanon Placement 15:07:39 JAVASCRIPT PROGRAMMER CPT-22346 Removal of IUD 15:07:39 JAVASCRIPT PROGRAMMER CPT-11986 TB Tubersol 12:09:32 CDT CPT-37226 TB Tubersol 13:55:43 CDT
--- OUTSIDE RECORDS SUMMARY | 2020-03-03 07:18 | XMS REPORT | Clinical Summary ---
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 Nausea alone URI 465.9 Active Jono Gagnon DO Acu te upper respiratory infections of unspecified site Allergic rhinitis 477.9 Active Brii Larson A PRN Allergic rhinitis, cause unspecified Abdominal pain, right lower quadrant 789.03 Active Jose Zhong MD Abdominal pain, right lower quadrant Urinary frequency 788.41 Inactive Roseann Crawford Urinary frequency BREAST CANCER ICD-V16.3 Inactive Jose Zhong M D COLON CANCER ICD-V16.0 Inactive Jose Zhong MD DIABETES ICD-V18.0 Inactive Jose Zhong MD 201 01/29/08 ACUTE FRONTAL SINUSITIS ICD-461.1 Inactive Meghan Estrada MD PhD CYSTITIS ICD-595.9 Inactive Liliana Esrtada MD Ph D SINUSITIS ICD-473.9 Inactive Liliana [...] Provider Patient Instruction PROTONIX 40 MG ORAL TBEC 1 po q a.m. PANTOPRAZO LE SODIUM [id number] Active Brii Larson APRN Active PREDNISONE 20 MG TAB 2 tabs daily for 3 days, 1 t ab daily for 3 days, 1/2 tab daily for 2 days PREDNISONE 84335821865 No Longer Active Brii Larson APRN Active PREDNISONE 20 MG TAB 1 tablet twice daily for 2 d ays, then 1 tablet once daily for 2 days PREDNISONE 16555454354 No Longer Active Brii Larson APRN Active FLONASE 50 MCG/ACT SUSP 1 spray each nostril twice d aily for allergies and runny nose until gone FLUTICASONE PROPIONATE Active Jono Gagnon DO Active PROMETHAZINE HCL 12.5 MG TABS 1 tablet by mouth every 6 hours as needed for nausea/vomiting PROMETHAZINE HCL 35358759316 No Longe r Active Jono Gagnon DO Active CITRATE OF MAGNESIA ORAL SOLN 1 bottle today for constipation 20 07/10/15 MAGNESIUM CITRATE 41721890693 No Longer Active Jono Gagnon DO Active ZOFRAN 4 MG ORAL TABS 1 TAB PO Q 6 HRS PRN NAUSEA 2014 ONDANSETRON HCL 61889719709 No Longer Active Brii Larson APRN A ctive LOMOTIL 2.5-0.025 MG TAB 1 to 2 four times a day as needed f or diarrhea DIPHENOXYLATE-ATROPINE 29631909271 No Longer Active January Larson APRN Active AMOXICILLIN 500 MG TABS 2 tabs twice a day for 10 days AMOXICILLIN 31603097922 No Longer Active Brii Larson APRN Acti ve NEXPLANON IMPL ETONOGESTREL IMPL 99509286143 Active Rich Rosales MD Active CYCLOBENZAPRINE HCL 10 MG TABS 1/2 - 1 tablet by mouth three times daily as needed for muscle spasm/pain CYCLOBENZAPRINE HCL 01579533996 No Longer Active Arie Casper MD Active LOMOTIL 2.5-0.025 MG TABS 1 to 2 four times a day as needed for diarrhea DIPHENOXYLATE-ATROPINE 57095838117 No Longer Active D freddy Casper MD Active MACROBID 100 MG CAP 1 cap by mouth twice daily NITROFURANTOIN MONOHYD MACRO 78606433399 No Longer Active Arie Casper MD Active ZYRTEC ALLERGY 10 MG CAPS 1 po qd CETIRIZINE HCL 26545232659 No Longer Active Arie Casper MD Active AZITHROMYCIN 250 MG TABS 2 po qd x 1 day, then 1 po qd x 4 days AZITHROMYCIN 89448725480 No Longer Active Jillina Frazelanette CABRERA Active PREDNISONE 20 MG TAB 2 tabs daily for 3 days, 1 t ab daily for 3 days, 1/2 tab daily for 2 days PREDNISONE 65409126486 No Longer Active Jillina Frazell CASH APPLICATIONS CLERK Active PROMETHAZINE HCL 25 MG TABS 1 four times a day as needed for vomiting PROMETHAZINE HCL 50821632973 No Longer Active Myrna E Drake MD Active BACTRIM DS 800-160 MG TABS 1 twice a day SULFAMETHOXAZOLE-TRIMETHOPRIM 57483172260 No Longer Active Myrna Roberto MD Active VICKS DAYQUIL SEVERE COLD/FLU TABS 1 tab every 6 hours prn 12/10 [id number] TABS 67490726937 No Longer Active Myrna leigh MD Active GUAIFENESIN-CODEINE 100-10 MG/5ML ORAL SYRP 2 tsp every 6 hours prn GUAIFENESIN-CODEINE 95154628143 No Longer Active Myrna Roberto MD Active NAPROXEN 500 MG TAB one tab PO BID NAPROXEN 332 32591661 No Longer Active Myrna Roberto MD Active AUGMENTIN 875-125 MG TAB 1 tab by mouth twice daily with food 08/12/16 AMOXICILLIN-POT CLAVULANATE 34597312716 No Longer Active Liliana Estrada MD PhD Active AMOXICILLIN 500 MG CAP 1 tab by mouth 3 times daily 08/12/16 AMOXICILLIN 89226110020 No Longer Active Liliana Estrada MD PhD Acti ve TESSALON PERLES 100 MG CAP 1 tablet by mouth 3 times daily 11/01 BENZONATATE 18089172023 No Longer Active Liliana Estrada MD PhD Active FLAGYL 500 MG TAB 1 tablet by mouth two times daily 07/11/29 METRONIDAZOLE 23644607389 No Longer Active Nilam Raida Active ZITHROMAX 250 MG TAB 2 po today, then 1 po q days 2-5 AZITHROMYCIN 10741973758 No Longer Active Arie Casper MD Acti ve VITAMINS 0.8 MG TABS take 1 tab po qday 08/08 [id number] 79096258674 No Longer Active Arie Casper MD Active IBUPROFEN 800 MG TABS take one po Q 8 hours IBU PROFEN 19753358319 No Longer Active Arie Casper MD Active [facility] TUSSIN COUGH/COLD CF 5-10-100 MG/5ML LIQD 2 teaspoons ev eliud 4 hours [id number] 79507193844 No Longer Active Blaine Casper MD Active COMTREX COLD/COUGH DAY/NITE MS 5-2-10-325 MG MISC 2 caps deja ry 4 hours [id number] 94105678226 No Longer Active Da aleksandra Casper MD Active CHLORASEPTIC MAX SORE THROAT 15-10 MG LOZG 1 every 2 hours prn 2 BENZOCAINE-MENTHOL 54750197755 No Longer Active Arie Marcelo Active PREDNISONE 20 MG TAB 2 tabs daily for 3 days, 1 t ab daily for 3 days, 1/2 tab daily for 2 days PREDNISONE 78836131068 No Longer Active Jose Zhong MD Active AZITHROMYCIN 250 MG TABS 2 po qd x 1 day, then 1 po qd x 4 days AZITHROMYCIN 40036634060 No Longer Active Jose Zhong MD Active ZOFRAN ODT 4 MG TBDP 1 po q6hr PRN Nausea ONDAN SETRON 69088296290 No Longer Active Rich Rosales MD Active ZOFRAN 4 MG TABS 1 tablet every 4 hours ONDANSE JERRELL HCL 30455013658 No Longer Active Rich Rosales MD Active MUCINEX 600 MG MO90H-RJE Take 1-2 tablets every 12 hours GUAIFENESIN 00725857972 No Longer Active Rich Rosales MD Activ e BACTRIM 400-80 MG TABS take one po BID SULFAMETHOXAZOLE-TRIMETHOPRIM 62630706366 No Longer Active Abelardo HERNANDEZ Active AZITHROMYCIN 500 MG TABS 1 PO q day x 6 days AZ ITHROMYCIN 42579149467 No Longer Active Tin HERNANDEZ Active ZITHROMAX 250 MG TAB 2 po today, then 1 po q days 2-5 AZITHROMYCIN 32122256777 No Longer Active Arie Casper MD Acti ve ZITHROMAX 250 MG TAB 2 po today, then 1 po q days 2-5 AZITHROMYCIN 61740323669 No Longer Active Arie Casper MD Acti ve AMOXICILLIN 500 MG CAP 1 tab by mouth 3 times daily 09/23/20 AMOXICILLIN 55898311063 No Longer Active Arie Casper MD Acti ve BACTRIM DS 800-160 MG TAB 1 tab by mouth twice daily 2 TRIMETHOPRIM-SULFAMETHOXAZOLE 61507085763 No Longer Active Aire Casper MD Active AMOXICILLIN 500 MG TABS take 1 tab po TID AMOXI CILLIN 74861326516 No Longer Active Arie Casper MD Active BACTRIM DS 800-160 MG TAB 1 tab by mouth twice daily 2 BACTRIM DS 800-160 MG TAB 640922 TRIMETHOPRIM-SULFAMETHOXAZOLE Inac tive MUCINEX 600 MG [id number]-KXT Take 1-2 tablets every 12 hours MUCINEX 600 MG [id number]-[id number] GUAIFENESIN Inactive ZOFRAN 4 MG TABS 1 tablet every 4 hours ZOFRAN 4 MG TABS 689531 ONDANSETRON HCL Inactive ZOFRAN ODT 4 MG TBDP 1 po q6hr PRN Nausea ZOFRAN ODT 4 MG TBDP 330279 ONDANSETRON Inactive CHLORASEPTIC MAX SORE THROAT 15-10 MG LOZG 1 every 2 hours prn 2 /04/30 CHLORASEPTIC MAX SORE THROAT 15-10 MG LOZG BENZO ARINA-MENTHOL Inactive COMTREX COLD/COUGH DAY/NITE MS 5-2-10-325 MG MISC 2 caps deja ry 4 hours COMTREX COLD/COUGH DAY/NITE MS 5-2-10-325 MG MIS C [id number] Inactive [facility] TUSSIN COUGH/COLD CF 5-10-100 MG/5ML LIQD 2 teaspoons ev eliud 4 hours [facility] TUSSIN COUGH/COLD CF 5-10-100 MG/5ML LIQD [id number]-OG-US Inactive IBUPROFEN 800 MG TABS take one po Q 8 hours IBUPROFEN 800 MG TABS 417288 IBUPROFEN Inactive VITAMINS 0.8 MG TABS take 1 tab po qday 08/08 VITAMINS 0.8 MG TABS [id number]-FA Inactive TESSALON PERLES 100 MG CAP 1 tablet by mouth 3 times daily 11/01 TESSALON PERLES 100 MG CAP 813209 BENZONATATE Inact zaid AMOXICILLIN 500 MG CAP 1 tab by mouth 3 times daily 08/12/16 AMOXICILLIN 500 MG CAP 250506 AMOXICILLIN Inactive GUAIFENESIN-CODEINE 100-10 MG/5ML ORAL SYRP 2 tsp every 6 hours prn GUAIFENESIN-CODEINE 100-10 MG/5ML ORAL SYRP 906430 GUAIFENESIN-CODEINE Inactive VICKS DAYQUIL SEVERE COLD/FLU TABS 1 tab every 6 hours prn 12/10 VICKS DAYQUIL SEVERE COLD/FLU TABS PHENYLEPHRINE -DM-GG-APAP TABS Inactive BACTRIM DS 800-160 MG TABS 1 twice a day BACTRIM DS 800- 160 MG TABS 707259 SULFAMETHOXAZOLE-TRIMETHOPRIM Inactive PROMETHAZINE HCL 25 MG TABS 1 four times a day as needed for vomiting PROMETHAZINE HCL 25 MG TABS 841871 PROMETHAZINE HCL Inactive ZYRTEC ALLERGY 10 MG CAPS 1 po qd ZY RTEC ALLERGY 10 MG CAPS CETIRIZINE HCL Inactive MACROBID 100 MG CAP 1 cap by mouth twice daily MACROBID 100 MG CAP 9782641 NITROFURANTOIN MONOHYD MACRO Inactive LOMOTIL 2.5-0.025 MG TABS 1 to 2 four times a day as needed for diarrhea LOMOTIL 2.5-0.025 MG TABS 5663976 DIPHENOXYLATE-A TROPINE Inactive CYCLOBENZAPRINE HCL 10 MG TABS 1/2 - 1 tablet by mouth three times daily as needed for muscle spasm/pain CYCLOBENZAP RINE HCL 10 MG TABS 577275 CYCLOBENZAPRINE HCL Inactive AMOXICILLIN 500 MG TABS 2 tabs twice a day for 10 days AMOXICILLIN 500 MG TABS 960580 AMOXICILLIN Inactive LOMOTIL 2.5-0.025 MG TAB 1 to 2 four times a day as needed f or diarrhea LOMOTIL 2.5-0.025 MG TAB 7040438 DIPHENOXYLATE-AT ROPINE Inactive ZOFRAN 4 MG ORAL TABS 1 TAB PO Q 6 HRS PRN NAUSEA 2014 ZOFRAN 4 MG ORAL TABS 879999 ONDANSETRON HCL Inactive CITRATE OF MAGNESIA ORAL SOLN 1 bottle today for constipation 20 07/10/15 CITRATE OF MAGNESIA ORAL SOLN 5425488 MAGNESIUM CITRATE Inactive PROMETHAZINE HCL 12.5 MG TABS 1 tablet by mouth every 6 hours as needed for nausea/vomiting PROMETHAZINE HCL 12.5 MG TABS 865939 PROMETHAZINE HCL Inactive PREDNISONE 20 MG TAB 1 tablet twice daily for 2 d ays, then 1 tablet once daily for 2 days PREDNISONE 20 MG TAB 444343 PREDNISONE Inac tive AMOXICILLIN 500 MG TABS take 1 tab po TID AMOXICILLIN 500 MG TABS 519150 AMOXICILLIN Inactive AMOXICILLIN 500 MG CAP 1 tab by mouth 3 times daily 09/23/20 AMOXICILLIN 500 MG CAP 220394 AMOXICILLIN Inactive ZITHROMAX 250 MG TAB 2 po today, then 1 po q days 2-5 ZITHROMAX 250 MG TAB 3615789 AZITHROMYCIN Inactive ZITHROMAX 250 MG TAB 2 po today, then 1 po q days 2-5 ZITHROMAX 250 MG TAB 2786236 AZITHROMYCIN Inactive AZITHROMYCIN 500 MG TABS 1 PO q day x 6 days 3 AZITHROMYCIN 500 MG TABS 1991379 AZITHROMYCIN Inactive BACTRIM 400-80 MG TABS take one po BID BA CTRIM 400-80 MG TABS 861864 SULFAMETHOXAZOLE-TRIMETHOPRIM Inactive AZITHROMYCIN 250 MG TABS 2 po qd x 1 day, then 1 po qd x 4 days AZITHROMYCIN 250 MG TABS 5843227 AZITHROMYCIN Inactiv e PREDNISONE 20 MG TAB 2 tabs daily for 3 days, 1 t ab daily for 3 days, 1/2 tab daily for 2 days PREDNISONE 20 MG TAB 942291 PREDNISON E Inactive ZITHROMAX 250 MG TAB 2 po today, then 1 po q days 2-5 ZITHROMAX 250 MG TAB 5262847 AZITHROMYCIN Inactive FLAGYL 500 MG TAB 1 tablet by mouth two times daily 07/11/29 FLAGYL 500 MG TAB 164910 METRONIDAZOLE Inactive AUGMENTIN 875-125 MG TAB 1 tab by mouth twice daily with food 20 08/12/16 AUGMENTIN 875-125 MG TAB 390052 AMOXICILLIN-POT CLAVULA ANGELO Inactive NAPROXEN 500 MG TAB one tab PO BID NAPROXEN 500 MG TAB 311318 NAPROXEN Inactive PREDNISONE 20 MG TAB 2 tabs daily for 3 days, 1 t ab daily for 3 days, 1/2 tab daily for 2 days PREDNISONE 20 MG TAB 760055 PREDNISON E Inactive AZITHROMYCIN 250 MG TABS 2 po qd x 1 day, then 1 po qd x 4 days AZITHROMYCIN 250 MG TABS 9181131 AZITHROMYCIN Inactiv e PREDNISONE 20 MG TAB 2 tabs daily for 3 days, 1 t ab daily for 3 days, 1/2 tab daily for 2 days PREDNISONE 20 MG TAB 173366 PREDNISON E Inactive Advance Directives Directive Description [...] Range Description blood pressure, diastolic - 8462-4 73 mm[Hg] [...] - 3141-9 178 [lb_av] Weigh t Measured blood pressure, diastolic - 8462-4 85 mm[Hg] BP kennedy blood pressure, systolic - 8480-6 119 mm[Hg] BP sys pulse rate E&M - 8867-4 94 /min H eart rate temperature E&M 99.2 [degF] Body temp erature weight E&M - 3141-9 176.5 [lb_av] Weigh t Measured blood pressure, diastolic - 8462-4 69 mm[Hg] BP kennedy blood pressure, systolic - 8480-6 112 mm[Hg] BP sys pulse rate E&M - 8867-4 78 /min H eart rate temperature E&M 98.9 [degF] Body temp erature weight E&M - 3141-9 170.5 [lb_av] Weigh t Measured blood pressure, diastolic - 8462-4 87 mm[Hg] BP kennedy blood pressure, systolic - 8480-6 117 mm[Hg] BP sys pulse rate E&M - 8867-4 89 /min H eart rate temperature E&M 98.8 [degF] Body temp erature weight E&M - 3141-9 179.5 [lb_av] Weigh t Measured blood pressure, diastolic - 8462-4 82 mm[Hg] BP kennedy blood pressure, systolic - 8480-6 115 mm[Hg] BP sys pulse rate E&M - 8867-4 92 /min H eart rate temperature E&M 98.4 [degF] Body temp erature weight E&M - 3141-9 172 [lb_av] Weigh t Measured blood pressure, diastolic - 8462-4 81 mm[Hg] BP kennedy blood pressure, systolic - 8480-6 134 mm[Hg] BP sys pulse rate E&M - 8867-4 103 /min H eart rate temperature E&M 100.1 [degF] Body temp erature weight E&M - 3141-9 163 [lb_av] Weigh t Measured blood pressure, diastolic - 8462-4 78 mm[Hg] BP kennedy blood pressure, systolic - 8480-6 142 mm[Hg] BP sys pulse rate E&M - 8867-4 96 /min H eart rate temperature E&M 98.1 [degF] Body temp erature weight E&M - 3141-9 164.4 [lb_av] Weigh t Measured Diagnostic Results Date Name Value Unit Range Description Immunizations: TB Skin Test - Challenge tests PPD results in mm 0 mm Lab Report: CBC - Hematology leukocyte count, blood 10.1 10^3/MM^3 10*3/mm3 4.6-10.2 erythrocyte (RBC) count 4.69 10^6/MM^3 10*6/mm3 4.04-5.4 8 hemoglobin, blood 12.9 g/dL 12.0-16.0 hematocrit, blood 38.7 % 36.0-46.0 mean corpuscular volume, RBC 83 fL 80-97 mean corpuscular hemoglobin, RBC 27.6 pg 27. 0-31.2 mean corpuscular hemoglobin concentration, RBC 33.4 G/DL % 31.8-35.4 red blood cell distribution width 13.9 % 11 .6-14.8 platelet count 277 10^3/MM^3 10*3/mm3 142-424 Lab Report: CBC W/DIFF - Hematology leukocyte count, blood 8.4 10^3/MM^3 10*3/mm3 4.6-10.2 neutrophils as percent of blood leukocytes 64.1 % 42.2-75.2 monocytes as percent of blood leukocytes 8.4 % 1.7-9.3 lymphocytes as percent of blood leukocytes 21.8 % 20.5-51.1 erythrocyte (RBC) count 4.77 10^6/MM^3 10*6/mm3 4.04-5.4 8 hemoglobin, blood 13.0 g/dL 12.0-16.0 hematocrit, blood 38.9 % 36.0-46.0 mean corpuscular volume, RBC 82 fL 80-97 mean corpuscular hemoglobin, RBC 27.3 pg 27. 0-31.2 mean corpuscular hemoglobin concentration, RBC 33.5 G/DL % 31.8-35.4 red blood cell distribution width 14.0 % 11 .6-14.8 platelet count 276 10^3/MM^3 10*3/mm3 142-424 Lab Report: CBC W/DIFF, Comp. Metabolic Panel - Chemistry sodium, serum 136 mmol/L 051-528 8285/04/26 carbon dioxide, venous blood 29.9 mmol/L 21.0-32 [...] count 284 10^3/MM^3 10*3/mm3 142-424 Lab Report: Comp. Metabolic Panel - Chem istry sodium, serum 139 mmol/L 969-910 6674/12/15 carbon dioxide, venous blood 30.2 mmol/L 21.0-32 .0 potassium, serum 3.4 mmol/L 3.5-5.2 chloride, serum 101 mmol/L 98-107 blood glucose 92 mg/dL 65-110 urea nitrogen, blood 5 mg/dL 7-18 creatinine, serum 0.81 mg/dL 0.55-1.30 alanine aminotransferase (SGPT), serum 20 U/L 12-78 aspartate aminotransferase (SGOT), serum 10 U/L 15-37 calcium, serum 8.4 mg/dL 8.5-10.1 bilirubin, serum, total 0.60 mg/dL 0.00-1.00 Lab Report: RapidStrep Rflx/Cx - Lab Microbial identification kit, rapid strep method Negative Negative Lab Report: UADIP W/MICRO, AUTO - Chemis try protein, total urine random Negative mg/dL Negative RBC, urine, dipstick Negative Negative protein, total urine random Negative mg/dL Negative RBC, urine, dipstick Negative Negative Lab Report: UADIP W/MICRO, AUTO - Urinal ysis urobilinogen, urine, semiquantitative (dipstick) 0.2 Normal leukocyte esterase, urine, by dipstick Negative Negative nitrite, urine, semiquantitative Negative Neg ative urine color Yellow Colorless;Lightyellow;St raw;Yellow appearance, urine Clear Clear specific gravity, urine 1.020 1.000-1.030 pH, urine, semiquantitative 6.5 5.0-8.5 glucose, urine, semiquantitative Negative Neg ative ketones, urine, by test strip Negative Negati ve bilirubin, urine Negative Negative urine color Yellow Colorless;Lightyellow;St raw;Yellow appearance, urine Clear Clear specific gravity, urine 1.025 1.000-1.030 pH, urine, semiquantitative 5.5 5.0-8.5 urobilinogen, urine, semiquantitative (dipstick) 0.2 Normal leukocyte esterase, urine, by dipstick Negative Negative nitrite, urine, semiquantitative Negative Neg ative glucose, urine, semiquantitative Negative Neg ative ketones, urine, by test strip Trace Negati ve bilirubin, urine Negative Negative Lab Report: UHCG, UADIP W/MICRO, AUTO - Chemistry human chorionic gonadotropin , urine, qualitative (urine test) Negative Negative protein, total urine random Negative mg/dL Negative RBC, urine, dipstick Trace Negative Lab Report: UHCG, UADIP W/MICRO, AUTO - Urinalysis urobilinogen, urine, semiquantitative (dipstick) 0.2 Normal leukocyte esterase, urine, by dipstick Negative Negative nitrite, urine, semiquantitative Negative Neg ative glucose, urine, semiquantitative Negative Neg ative ketones, urine, by test strip Negative Negati ve bilirubin, urine Negative Negative urine color Yellow Colorless;Lightyellow;St raw;Yellow appearance, urine Clear Clear specific gravity, urine 1.020 1.000-1.030 pH, urine, semiquantitative 6.0 5.0-8.5 Encounters Code Encounter Date Provider Facility CPT-47479 Level 3 Est. Patient 16:40:54 CDT Jose Zhong MD [facility] CPT-92887 Level 2 Est. Patient 13:01:13 CDT Steve CASH APPLICATIONS CLERK [facility] CPT-62603 Level 3 Est. Patient 11:55:30 ELECTRONIC DEVICE REPAIRER Jono black DO [facility] CPT-39742 Level 3 Est. Patient 09:52:36 ELECTRONIC DEVICE REPAIRER Steve CABRERA [facility] CPT-30790 Level 3 Est. Patient 16:25:33 ELECTRONIC DEVICE REPAIRER Rich Rosales MD [facility] CPT-74035 Level 3 Est. Patient 20:33:55 CDT Arie mcqueen MD [facility] CPT-42966 Level 3 Est. Patient 14:18:20 CDT Rich Rosales MD [facility] CPT-96670 Level 4 Est. Patient 09:34:31 CDT Arie mcqueen MD [facility] CPT-55149 Level 3 Est. Patient 09:08:55 ELECTRONIC DEVICE REPAIRER Liliana vincent MD PhD [facility] CPT-94921 Level 3 Est. Patient 16:44:07 ELECTRONIC DEVICE REPAIRER Arie mcqueen MD [facility] CPT-96942 Level 3 Est. Patient 10:44:27 CDT Arie mcqueen MD [facility] CPT-85137 Level 3 Est. Patient 08:55:41 CDT Jose Zhong MD [facility] CPT-14540 Level 3 Est. Patient 18:37:31 CDT Liliana vincent MD PhD [facility] CPT-12800 Level 3 Est. Patient 14:28:23 CDT Abelardo HERNANDEZ [facility] CPT-39476 Level 3 Est. Patient 15:18:13 ELECTRONIC DEVICE REPAIRER Arie mcqueen MD [facility] CPT-88209 Level 3 Est. Patient 10:11:29 ELECTRONIC DEVICE REPAIRER Arie mcqueen MD [facility] CPT-96451 Level 3 Est. Patient 10:55:57 ELECTRONIC DEVICE REPAIRER Jono black DO [facility] CPT-17756 Level 3 Est. Patient 17:29:05 CDT Arie mcqueen MD [facility] Procedures Code Procedure Name Date Entry Date Standard Desc ription CPT-46214 Abd compl w upright 09:07:26 ELECTRONIC DEVICE REPAIRER CPT-33511 Ear Wash 16:12:47 ELECTRONIC DEVICE REPAIRER CPT-OV Office Visit 11:12:01 CDT CPT-OV Office Visit 15:30:23 CDT CPT-84420 Sono pelvis non OB uterus ovaries cervix 15:50:44 CDT CPT-70225 Hand comp min 3V 16:42:32 CDT CPT-56106 Abd compl w upright 12:17:01 CDT CPT-36283 Nexplanon Placement 15:07:39 ELECTRONIC DEVICE REPAIRER CPT-85064 Removal of IUD 15:07:39 ELECTRONIC DEVICE REPAIRER CPT-21334 TB Tubersol 12:09:32 CDT CPT-51118 TB Tubersol 13:55:43 CDT
--- OUTSIDE RECORDS SUMMARY | 2020-03-03 07:18 | XMS REPORT | Clinical Summary ---
Author Author Admin, Diamante Marcelo Organization [employer] Address Unknown Phone Unavailable Allergies, Adverse Reactions, [...] following surgery, unspecified Constipation 564.00 Active Myrna Robreto MD Constipation, unspecified Bronchitis 490 Active Jessica [...] implantable subdermal contraceptiv e Active Brii Russ 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SPECIAL SERVICES Vaginal bleeding 623.8 Active Arie Casper MD Other specified noninflammatory disorders of vagina Influenza like illness 487.1 Active Jose Mcwilliams MD Influenza with other respiratory manifestations Sinusitis 473.9 Active Jessica Heaton 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SPECIAL SERVICES Unspecified sinusitis (chronic) BREAST CANCER ICD-V16.3 Inactive [...] q12hr PRN Cough HYDROCOD POLST-CHLORPHEN POLST 5 [id number] No Longer Active Myrna Roberto MD Active ZITHROMAX Z-EMIL 250 MG TABS Take two tablets today and then 1 tablet daily for 4 days AZITHROMYCIN 77596048169 No Longer Active Flaco Rosales MD Active GUAIFENESIN DM 400-20 MG ORAL TABLET 1 pill by mouth t wice daily, if needed for cough DEXTROMETHORPHAN-GUAIFENESIN 66265711336 No Longer Active Rich Rosales MD Active CEFDINIR 300 MG ORAL CAPSULE 1 po BID x 10 days CEFDINIR 56486683882 No Longer Active Jessica Heaton APRN Active CHERATUSSIN AC 100-10 MG/5ML ORAL SYRUP 1 tsp by mouth every 4 hours as needed for cough GUAIFENESIN-CODEINE 08969573168 No Longe r Active Jessica Heaton APRN Active TAMIFLU 75 MG ORAL CAPSULE 1 po BID x 5 days 0 OSELTAMIVIR PHOSPHATE 63393947929 No Longer Active Jose Zhong MD Activ e ZITHROMAX Z-EMIL 250 MG ORAL TABLET 2 today, then 1 daily for 4 d ays AZITHROMYCIN 27333692576 No Longer Active Arie Casper MD Active PROTONIX 40 MG ORAL TABLET DELAYED RELEASE 1 po q a.m. PANTOPRAZOLE SODIUM 62965329301 No Longer Active Arie Casper MD Active BACTRIM DS 800-160 MG ORAL TABLET 1 tab by mouth twice daily 201 05/02/30 TRIMETHOPRIM-SULFAMETHOXAZOLE 03558614646 No Longer Active R [facility] Ty Active NEXPLANON IMPLANT right arm subcutaneously ETONOGESTREL IMPL 70627321929 No Longer Active Brii Russ APRN Active TUSSIONEX PENNKINETIC ER 10-8 MG/5ML ORAL SUSPENSION E XTENDED RELEASE 5ml po q12hr PRN Cough HYDROCOD POLST-CHLORPHEN POLST 5 5592392709 No Longer Active Brii Russ 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SPECIAL SERVICES Active CETIRIZINE HCL 10 MG ORAL TABLET 1 po qd PRN Allergies CETIRIZINE HCL 85657641049 No Longer Active Brii Russ APRN Activ e PREDNISONE 20 MG ORAL TABLET 2 tabs daily for 3 days, 1 tab daily for 3 days, 1/2 tab daily for 2 days PREDNISONE 11731710780 No Longer Active Arie Casper MD Active LOMOTIL 2.5-0.025 MG ORAL TABLET 1 tab po four times a day as needed for diarrhea DIPHENOXYLATE-ATROPINE 41731934574 No Lo nger Active Arie Casper MD Active ZOLOFT 50 MG ORAL TABLET 1 tablet by mouth daily 12/08 SERTRALINE HCL 10066695740 No Longer Active Arie Casper MD Ac tive NAPROXEN 500 MG ORAL TABLET Take 1 tab BID NAPR OXEN 45569240940 No Longer Active Arie Casper MD Active CEFDINIR 300 MG ORAL CAPSULE 1 po BID x 10 days CEFDINIR 52020365800 No Longer Active Brii Russ APRN Active PREDNISONE 20 MG ORAL TABLET 1 tablet daily for airway inflammat ion PREDNISONE 07887855126 No Longer Active Brii Russ APRN A ctive CEFDINIR 300 MG ORAL CAPSULE 1 po BID x 10 days CEFDINIR 80713254821 No Longer Active Jono Gangon DO Active FLONASE 50 MCG/ACT NASAL SUSPENSION 1 spray each nostr il twice daily for allergies and runny nose until gone FLUT ICASONE PROPIONATE 79096345470 No Longer Active Jono Gagnon DO Active ALPRAZOLAM 0.25 MG ORAL TABLET 1 tablet by mouth every 8 hours as needed for stress ALPRAZOLAM 56558540099 No Longer Active Jono Gagnon DO Active ZITHROMAX Z-EMIL 250 MG ORAL TABLET 2 today, then 1 daily for 4 d ays AZITHROMYCIN 01604794673 No Longer Active Arie Casper MD Active PREDNISONE 20 MG ORAL TABLET 2 tabs daily for 3 days, 1 tab daily for 3 days, 1/2 tab daily for 2 days PREDNISONE 18584830798 No Longer Active Brii Russ APRN Active PREDNISONE 20 MG ORAL TABLET 1 tablet twice daily for 2 days, then 1 tablet once daily for 2 days PREDNISONE 42639320305 No Longer Active Brii Russ APRN Active PROMETHAZINE HCL 12.5 MG ORAL TABLET 1 tablet by mouth every 6 hours as needed for nausea/vomiting PROMETHAZINE HCL 16517515123 No L onger Active Jono Gagnon DO Active CITRATE OF MAGNESIA ORAL SOLUTION 1 bottle today for constipatio n MAGNESIUM CITRATE 36384843104 No Longer Active Jono Gagnon DO Active ZOFRAN 4 MG ORAL TABLET 1 TAB PO Q 6 HRS PRN NAUSEA 07/10/15 ONDANSETRON HCL 20569370149 No Longer Active Brii Russ APRN Acti ve LOMOTIL 2.5-0.025 MG ORAL TABLET 1 to 2 four times a day as needed for diarrhea DIPHENOXYLATE-ATROPINE 53887745829 No Longer Active January Russ APRN Active AMOXICILLIN 500 MG ORAL TABLET 2 tabs twice a day for 10 days 20 07/09/11 AMOXICILLIN 43948951640 No Longer Active Brii Russ APRN Active CYCLOBENZAPRINE HCL 10 MG ORAL TABLET 1/2 - 1 tablet b y mouth three times daily as needed for muscle spasm/pain CYCLOBENZAPRINE HCL 15753671062 No Longer Active Arie Casper MD Active LOMOTIL 2.5-0.025 MG ORAL TABLET 1 to 2 four times a day as needed for diarrhea DIPHENOXYLATE-ATROPINE 43820444033 No Longer Active oFzia Casper MD Active MACROBID 100 MG ORAL CAPSULE 1 cap by mouth twice daily NITROFURANTOIN MONOHYD MACRO 08842078982 No Longer Active Arie Casper MD Active ZYRTEC ALLERGY 10 MG ORAL CAPSULE 1 po qd CE TIRIZINE HCL 88346303412 No Longer Active Arie Casper MD Active AZITHROMYCIN 250 MG ORAL TABLET 2 po qd x 1 day, then 1 po q d x 4 days AZITHROMYCIN 47638617798 No Longer Active Jessica salgado 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SPECIAL SERVICES Active PREDNISONE 20 MG ORAL TABLET 2 tabs daily for 3 days, 1 tab daily for 3 days, 1/2 tab daily for 2 days PREDNISONE 65692777044 No Longer Active Jessica Heaton 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SPECIAL SERVICES Active PROMETHAZINE HCL 25 MG ORAL TABLET 1 four times a day as nee ded for vomiting PROMETHAZINE HCL 80484260685 No Longer Active Myrna Roberto MD Active BACTRIM DS 800-160 MG ORAL TABLET 1 twice a day 05/30 SULFAMETHOXAZOLE-TRIMETHOPRIM 32822924515 No Longer Active Myrna Roberto MD Active VICKS DAYQUIL SEVERE COLD/FLU TABLET 1 tab every 6 hours prn 201 02/22/17 [id number] TABS 46248971438 No Longer Active Chris Roberto MD Active GUAIFENESIN-CODEINE 100-10 MG/5ML ORAL SYRUP 2 tsp every 6 hours prn GUAIFENESIN-CODEINE 63632410919 No Longer Active Myrna Roberto MD Active NAPROXEN 500 MG ORAL TABLET one tab PO BID NAPR OXEN 56926964364 No Longer Active Myrna Roberto MD Active AUGMENTIN 875-125 MG ORAL TABLET 1 tab by mouth twice daily with food AMOXICILLIN-POT CLAVULANATE 75553185921 No Longer Act zaid Liliana Estrada MD PhD Active AMOXICILLIN 500 MG ORAL CAPSULE 1 tab by mouth 3 times daily 201 02/21/05 AMOXICILLIN 60082054129 No Longer Active Liliana Estrada MD PhD Active TESSALON PERLES 100 MG ORAL CAPSULE 1 tablet by mouth 3 times da cory BENZONATATE 15186904322 No Longer Active Liliana Estrada MD PhD Active FLAGYL 500 MG ORAL TABLET 1 tablet by mouth two times daily 2014 METRONIDAZOLE 91708310601 No Longer Active Nilam Doran tive ZITHROMAX 250 MG ORAL TABLET 2 po today, then 1 po q days 2-5 20 06/08/16 AZITHROMYCIN 83658809543 No Longer Active Arie Casper MD Active VITAMINS 0.8 MG ORAL TABLET take 1 tab po qday [id number] 19552222004 No Longer Active Arie Casper MD Active IBUPROFEN 800 MG ORAL TABLET take one po Q 8 hours 201 02/01/16 IBUPROFEN 93019193242 No Longer Active Arie Casper MD Acti ve [facility] TUSSIN COUGH/COLD CF 5-10-100 MG/5ML ORAL LIQUID 2 teasp oons every 4 hours [id number] 95757627520 No Longer Active Blaine Casper MD Active COMTREX COLD/COUGH DAY/NITE MS 5-2-10-325 MG ORAL 2 caps deja ry 4 hours [id number] 21985111402 No Longer Active Da aleksandra Casper MD Active CHLORASEPTIC MAX SORE THROAT 15-10 MG MOUTH/THROAT LOZENGE 1 every 2 hours prn BENZOCAINE-MENTHOL 87281351987 No Longer Active Arie Casper MD Active PREDNISONE 20 MG ORAL TABLET 2 tabs daily for 3 days, 1 tab daily for 3 days, 1/2 tab daily for 2 days PREDNISONE 73223591567 No Longer Active Jose Zhong MD Active AZITHROMYCIN 250 MG ORAL TABLET 2 po qd x 1 day, then 1 po q d x 4 days AZITHROMYCIN 56535840111 No Longer Active Jose Mcwilliams MD Active ZOFRAN ODT 4 MG ORAL TABLET DISINTEGRATING 1 po q6hr PRN Nausea ONDANSETRON 60335294269 No Longer Active Rich Rosales MD Active ZOFRAN 4 MG ORAL TABLET 1 tablet every 4 hours ONDANSETRON HCL 39702144611 No Longer Active Rich Rosales MD Activ e MUCINEX 600 MG ORAL TABLET EXTENDED RELEASE 12 HOUR Ta ke 1-2 tablets every 12 hours GUAIFENESIN 17556560181 No Longer Active Rich Rosales MD Active BACTRIM 400-80 MG ORAL TABLET take one po BID SULFAMETHOXAZOLE-TRIMETHOPRIM 31663481719 No Longer Active Abelardo HERNANDEZ Active AZITHROMYCIN 500 MG ORAL TABLET 1 PO q day x 6 days 20 03/02/23 AZITHROMYCIN 78338119490 No Longer Active Tin HERNANDEZ Activ e ZITHROMAX 250 MG ORAL TABLET 2 po today, then 1 po q days 2-5 20 10/03/08 AZITHROMYCIN 10446738374 No Longer Active Arie Casper MD Active ZITHROMAX 250 MG ORAL TABLET 2 po today, then 1 po q days 2-5 20 09/23/25 AZITHROMYCIN 51247067570 No Longer Active Arie Casper MD Active AMOXICILLIN 500 MG ORAL CAPSULE 1 tab by mouth 3 times daily 201 11/24/09 AMOXICILLIN 22657445252 No Longer Active Arie Casper MD Active BACTRIM DS 800-160 MG ORAL TABLET 1 tab by mouth twice daily 201 11/03/14 TRIMETHOPRIM-SULFAMETHOXAZOLE 71709359137 No Longer Active Fozia Casper MD Active AMOXICILLIN 500 MG ORAL TABLET take 1 tab po TID 08/05 AMOXICILLIN 76162018264 No Longer Active Arie Casper MD Acti ve BACTRIM DS 800-160 MG ORAL TABLET 1 tab by mouth twice daily 201 11/03/14 BACTRIM DS 800-160 MG ORAL TABLET 954260 TRIMETHOPRIM-SULFAMETHOXAZOLE Inactive MUCINEX 600 MG ORAL TABLET EXTENDED RELEASE 12 HOUR Ta ke 1-2 tablets every 12 hours MUCINEX 600 MG ORAL TABLET EXTENDED RELEA SE 12 HOUR GUAIFENESIN Inactive ZOFRAN 4 MG ORAL TABLET 1 tablet every 4 hours ZOFRAN 4 MG ORAL TABLET 875491 ONDANSETRON HCL Inactive ZOFRAN ODT 4 MG ORAL TABLET DISINTEGRATING 1 po q6hr PRN Nausea ZOFRAN ODT 4 MG ORAL TABLET DISINTEGRATING 584670 ONDAN SETRON Inactive CHLORASEPTIC MAX SORE THROAT 15-10 MG MOUTH/THROAT LOZENGE 1 every 2 hours prn CHLORASEPTIC MAX SORE THROAT 15-10 MG MOUTH/THROAT LOZENGE BENZOCAINE-MENTHOL Inactive COMTREX COLD/COUGH DAY/NITE MS 5-2-10-325 MG ORAL 2 caps deja ry 4 hours COMTREX COLD/COUGH DAY/NITE MS 5-2-10-325 MG ORA L [id number] Inactive [facility] TUSSIN COUGH/COLD CF 5-10-100 MG/5ML ORAL LIQUID 2 teasp oons every 4 hours [facility] TUSSIN COUGH/COLD CF 5-10-100 MG/5ML ORAL LI QUID [id number] Inactive IBUPROFEN 800 MG ORAL TABLET take one po Q 8 hours 201 02/01/16 IBUPROFEN 800 MG ORAL TABLET IBUPROFEN Inactive VITAMINS 0.8 MG ORAL TABLET take 1 tab po qday VITAMINS 0.8 MG ORAL TABLET [id number] E-FA Inactive TESSALON PERLES 100 MG ORAL CAPSULE 1 tablet by mouth 3 times da cory TESSALON PERLES 100 MG ORAL CAPSULE 908618 BENZONATATE Inactive AMOXICILLIN 500 MG ORAL CAPSULE 1 tab by mouth 3 times daily 201 02/21/05 AMOXICILLIN 500 MG ORAL CAPSULE 961464 AMOXICILLIN Inactive GUAIFENESIN-CODEINE 100-10 MG/5ML ORAL SYRUP 2 tsp every 6 hours prn GUAIFENESIN-CODEINE 100-10 MG/5ML ORAL SYRUP 800847 GUAIFENESIN-CODEINE Inactive VICKS DAYQUIL SEVERE COLD/FLU TABLET 1 tab every 6 hours prn 201 02/22/17 VICKS DAYQUIL SEVERE COLD/FLU TABLET PHENYLEPHRI [id number] TABS Inactive BACTRIM DS 800-160 MG ORAL TABLET 1 twice a day 05/30 BACTRIM DS 800-160 MG ORAL TABLET 721489 SULFAMETHOXAZOLE-TRIMETHOPRIM Inactiv e PROMETHAZINE HCL 25 MG ORAL TABLET 1 four times a day as nee ded for vomiting PROMETHAZINE HCL 25 MG ORAL TABLET 886062 PROMETHAZINE HCL Inactive ZYRTEC ALLERGY 10 MG ORAL CAPSULE 1 po qd ZYRTEC ALLERGY 10 MG ORAL CAPSULE CETIRIZINE HCL Inactive MACROBID 100 MG ORAL CAPSULE 1 cap by mouth twice daily MACROBID 100 MG ORAL CAPSULE 4439225 NITROFURANTOIN MONOHYD MACRO In active LOMOTIL 2.5-0.025 MG ORAL TABLET 1 to 2 four times a day as needed for diarrhea LOMOTIL 2.5-0.025 MG ORAL TABLET 7695334 DIPHENOXYLATE-ATROPINE Inactive CYCLOBENZAPRINE HCL 10 MG ORAL TABLET 1/2 - 1 tablet b y mouth three times daily as needed for muscle spasm/pain CYCLOBEN ZAPRINE HCL 10 MG ORAL TABLET 103945 CYCLOBENZAPRINE HCL Inactive AMOXICILLIN 500 MG ORAL TABLET 2 tabs twice a day for 10 days 20 07/09/11 AMOXICILLIN 500 MG ORAL TABLET 229050 AMOXICILLIN I nactive LOMOTIL 2.5-0.025 MG ORAL TABLET 1 to 2 four times a day as needed for diarrhea LOMOTIL 2.5-0.025 MG ORAL TABLET 0346114 DIPHENOXYLATE-ATROPINE Inactive ZOFRAN 4 MG ORAL TABLET 1 TAB PO Q 6 HRS PRN NAUSEA 20 07/10/15 ZOFRAN 4 MG ORAL TABLET 724825 ONDANSETRON HCL Inactive CITRATE OF MAGNESIA ORAL SOLUTION 1 bottle today for constipatio n CITRATE OF MAGNESIA ORAL SOLUTION 2354986 MAGNESIUM CITR ATE Inactive PROMETHAZINE HCL 12.5 MG ORAL TABLET 1 tablet by mouth every 6 hours as needed for nausea/vomiting PROMETHAZINE HCL 12.5 MG ORA L TABLET 911918 PROMETHAZINE HCL Inactive PREDNISONE 20 MG ORAL TABLET 1 tablet twice daily for 2 days, then 1 tablet once daily for 2 days PREDNISONE 20 MG ORAL TABLET 886373 PREDNISONE Inactive ALPRAZOLAM 0.25 MG ORAL TABLET 1 tablet by mouth every 8 hours as needed for stress ALPRAZOLAM 0.25 MG ORAL TABLET 575701 ALPRA ZOLAM Inactive FLONASE 50 MCG/ACT NASAL SUSPENSION 1 spray each nostr il twice daily for allergies and runny nose until gone FLON ASE 50 MCG/ACT NASAL SUSPENSION 5276431 FLUTICASONE PROPIONATE Inactive PREDNISONE 20 MG ORAL TABLET 1 tablet daily for airway inflammat ion PREDNISONE 20 MG ORAL TABLET 862890 PREDNISONE [place] ctive NAPROXEN 500 MG ORAL TABLET Take 1 tab BID NAPROXEN 500 MG ORAL TABLET 193163 NAPROXEN Inactive ZOLOFT 50 MG ORAL TABLET 1 tablet by mouth daily 12/08 ZOLOFT 50 MG ORAL TABLET 349973 SERTRALINE HCL Inactive LOMOTIL 2.5-0.025 MG ORAL TABLET 1 tab po four times a day as needed for diarrhea LOMOTIL 2.5-0.025 MG ORAL TABLET 7868318 DIPHENOXYLATE-ATROPINE Inactive CETIRIZINE HCL 10 MG ORAL TABLET 1 po qd PRN Allergies CETIRIZINE HCL 10 MG ORAL TABLET 7565681 CETIRIZINE HCL Inactiv e TUSSIONEX PENNKINETIC ER 10-8 MG/5ML ORAL SUSPENSION E XTENDED RELEASE 5ml po q12hr PRN Cough TUSSIONEX PENNKINETI C ER 10-8 MG/5ML ORAL SUSPENSION EXTENDED RELEASE HYDROCOD POLST-CHLORPHEN POLST I nactive NEXPLANON IMPLANT right arm subcutaneously NEXPLANON IMPLANT ETONOGESTREL IMPL Inactive PROTONIX 40 MG ORAL TABLET DELAYED RELEASE 1 po q a.m. PROTONIX 40 MG ORAL TABLET DELAYED RELEASE 287246 PANTOPRAZOLE SODI UM Inactive CHERATUSSIN AC 100-10 MG/5ML ORAL SYRUP 1 tsp by mouth every 4 hours as needed for cough CHERATUSSIN AC 100-10 MG/5ML ORAL SYRUP 9 50704 GUAIFENESIN-CODEINE Inactive GUAIFENESIN DM 400-20 MG ORAL [...] TID 08/05 AMOXICILLIN 500 MG ORAL TABLET 279016 AMOXICILLIN Inactive AMOXICILLIN 500 MG ORAL CAPSULE 1 tab by mouth 3 times daily 201 11/24/09 AMOXICILLIN 500 MG ORAL CAPSULE 513141 AMOXICILLIN Inactive ZITHROMAX 250 MG ORAL TABLET 2 po today, then 1 po q days 2-5 20 09/23/25 ZITHROMAX 250 MG ORAL TABLET 367909 AZITHROMYCIN [place] ctive ZITHROMAX 250 MG ORAL TABLET 2 po today, then 1 po q days 2-5 20 10/03/08 ZITHROMAX 250 MG ORAL TABLET 491434 AZITHROMYCIN [place] ctive AZITHROMYCIN 500 MG ORAL TABLET 1 PO q day x 6 days 03/02/23 AZITHROMYCIN 500 MG ORAL TABLET 3482395 AZITHROMYCIN Inactive BACTRIM 400-80 MG ORAL TABLET take one po BID BACTRIM 400- 80 MG ORAL TABLET 343856 SULFAMETHOXAZOLE-TRIMETHOPRIM Inactive AZITHROMYCIN 250 MG ORAL TABLET 2 po qd x 1 day, then 1 po q d x 4 days AZITHROMYCIN 250 MG ORAL TABLET 087834 AZITHROMY ALLISON Inactive PREDNISONE 20 MG ORAL TABLET 2 tabs daily for 3 days, 1 tab daily for 3 days, 1/2 tab daily for 2 days PREDNISONE 20 MG ORAL T ABLET 146446 PREDNISONE Inactive ZITHROMAX 250 MG ORAL TABLET 2 po today, then 1 po q days 2-5 20 06/08/16 ZITHROMAX 250 MG ORAL TABLET 270370 AZITHROMYCIN [place] ctive FLAGYL 500 MG ORAL TABLET 1 tablet by mouth two times daily 2014 FLAGYL 500 MG ORAL TABLET 704554 METRONIDAZOLE Inacti ve AUGMENTIN 875-125 MG ORAL TABLET 1 tab by mouth twice daily with food AUGMENTIN 875-125 MG ORAL TABLET 785094 AMOXICIL ELSA-POT CLAVULANATE Inactive NAPROXEN 500 MG ORAL TABLET one tab PO BID NAPROXEN 500 MG ORAL TABLET 758733 NAPROXEN Inactive PREDNISONE 20 MG ORAL TABLET 2 tabs daily for 3 days, 1 tab daily for 3 days, 1/2 tab daily for 2 days PREDNISONE 20 MG ORAL T ABLET 662723 PREDNISONE Inactive AZITHROMYCIN 250 MG ORAL TABLET 2 po qd x 1 day, then 1 po q d x 4 days AZITHROMYCIN 250 MG ORAL TABLET 305406 AZITHROMY ALLISON Inactive PREDNISONE 20 MG ORAL TABLET 2 tabs daily for 3 days, 1 tab daily for 3 days, 1/2 tab daily for 2 days PREDNISONE 20 MG ORAL T ABLET 031640 PREDNISONE Inactive ZITHROMAX Z-EMIL 250 MG ORAL TABLET 2 today, then 1 daily for 4 d ays ZITHROMAX Z-EMIL 250 MG ORAL TABLET 667428 AZITHROMYCIN Inactive CEFDINIR 300 MG ORAL CAPSULE [...] days PREDNISONE 20 MG ORAL T ABLET 381891 PREDNISONE Inactive BACTRIM DS 800-160 MG ORAL TABLET 1 tab by mouth twice daily 201 05/02/30 BACTRIM DS 800-160 MG ORAL TABLET 458228 TRIMETHOPRIM-SULFAMETHOXAZOLE Inactive ZITHROMAX Z-EMIL 250 MG ORAL TABLET 2 today, then 1 daily for 4 d ays ZITHROMAX Z-EMIL 250 MG ORAL TABLET 500910 AZITHROMYCIN Inactive TAMIFLU 75 MG ORAL CAPSULE 1 po BID x 5 days 0 TAMIFLU 75 MG ORAL CAPSULE 307238 OSELTAMIVIR PHOSPHATE Inactive CEFDINIR 300 MG ORAL CAPSULE 1 po BID x 10 days 2018/01/03 CEFDINIR 300 MG ORAL CAPSULE 008308 CEFDINIR Inactive ZITHROMAX Z-EMIL 250 MG TABS Take two tablets today and then 1 tablet daily for 4 days ZITHROMAX Z-EMIL 250 MG TABS 290346 AZITHROM YCIN Inactive Advance Directives Directive Description [...] Value Unit Range Description blood pressure, diastolic 65 mm[Hg] BP kennedy [...] count 263 10^3/MM^3 10*3/mm3 142-424 Lab Report: Thyroid Stimulating Hormone (L) - [...] Negative Encounters Code Encounter Date Provider Facility CPT-90066 Level 3 Est. Patient 11:49:34 LITHOPONE CHARGER Jessica boyd [facility] CPT-47395 Level 3 Est. Patient 14:55:50 LITHOPONE CHARGER Jose Zhong MD [facility] CPT-17562 Level 3 Est. Patient 10:21:41 LITHOPONE CHARGER Arie mcqueen MD [facility]-96221 Level 3 Est. Patient 11:35:15 LITHOPONE CHARGER Arie mcqueen MD [facility]-27468 Level 3 Est. Patient 15:40:28 CDT Brii Are [facility] CPT-19749 Level 3 Est. Patient 16:40:36 CDT Arie mcqueen MD [facility] CPT-78691 Level 4 Est. Patient 15:29:22 LITHOPONE CHARGER Arie mcqueen MD [facility]-45891 Level 3 Est. Patient 15:18:16 LITHOPONE CHARGER Jono black DO [facility] CPT-57771 Level 4 Est. Patient 12:08:40 LITHOPONE CHARGER Brii Are [facility]-17457 Level 3 Est. Patient 09:24:42 CDT Brii Are [facility] CPT-28767 Level 3 Est. Patient 09:12:56 CDT Arie mcqueen MD [facility] CPT-09505 Level 3 Est. Patient 16:40:54 CDT Jose Zhong MD [facility] CPT-19081 Level 2 Est. Patient 13:01:13 CDT Brii Are ll [facility] CPT-72222 Level 3 Est. Patient 11:55:30 LITHOPONE CHARGER Jono Cheema ee DO [facility] CPT-84839 Level 3 Est. Patient 09:52:36 LITHOPONE CHARGER Brii Are ll [facility] CPT-40791 Level 3 Est. Patient 16:25:33 LITHOPONE CHARGER Rich Rosales MD [facility] CPT-86382 Level 3 Est. Patient 20:33:55 CDT Arie mcqueen MD [facility] CPT-21724 Level 3 Est. Patient 14:18:20 CDT Rich Rosales MD [facility] CPT-58336 Level 4 Est. Patient 09:34:31 CDT Arie mcqueen MD [facility] CPT-28116 Level 3 Est. Patient 09:08:55 LITHOPONE CHARGER Liliana vincent MD PhD [facility] CPT-08780 Level 3 Est. Patient 16:44:07 LITHOPONE CHARGER Arie mcqueen MD [facility] CPT-41285 Level 3 Est. Patient 10:44:27 CDT Arie mcqueen MD [facility] CPT-54701 Level 3 Est. Patient 08:55:41 CDT Jose Zhong MD [facility] CPT-53176 Level 3 Est. Patient 18:37:31 CDT Liliana vincent MD PhD [facility] CPT-18876 Level 3 Est. Patient 14:28:23 CDT Abelardo HERNANDEZ [facility] CPT-75500 Level 3 Est. Patient 15:18:13 LITHOPONE CHARGER Arie mcqueen MD [facility] CPT-68295 Level 3 Est. Patient 10:11:29 LITHOPONE CHARGER Arie mcqueen MD [facility] CPT-50212 Level 3 Est. Patient 10:55:57 LITHOPONE CHARGER Jono black DO [facility] CPT-81622 Level 3 Est. Patient 17:29:05 CDT Arie mcqueen MD [facility] Procedures Code Procedure Name Date Entry Date Standard Desc ription CPT-34663 Nexplanon Removal 15:40:28 CDT CPT-31638 Sono transvag pelvis non OB uterus ovari es cervix - XRAY USE ONLY 08:58:14 LITHOPONE CHARGER CPT-43017 UA w micro - LAB USE ONLY 16:04:56 LITHOPONE CHARGER 2015 CPT-81333 Wet Prep/GEN - LAB USE ONLY 16:04:56 LITHOPONE CHARGER 20 08/10/29 CPT-31009 First Vx - Ix admin via ID I M or jet injects without counseling by physician 16:57:10 CDT CPT-08186 Fluzone Preservative Free Intramuscular Suspension 16:57:10 CDT CPT-J0696 Rocephin 1000 mg (Ceftriaxone) 11:49:23 CDT CPT-J1040 Depo Medrol 80 mg (Methyl Prednisolone A cetate) 11:49:23 CDT CPT-J1100 Decadron 8mg (Dexamethasone) 11:49:23 CDT 2 CPT-40514 Abx/Therapy Injection 11:49:23 CDT CPT-69878 Abx/Therapy Injection 11:49:23 CDT CPT-27451 Abd compl w upright 09:07:26 LITHOPONE CHARGER CPT-25883 Ear Wash 16:12:47 LITHOPONE CHARGER CPT-OV Office Visit 11:12:01 CDT CPT-OV Office Visit 15:30:23 CDT CPT-61159 Sono pelvis non OB uterus ovaries cervix 15:50:44 CDT CPT-62614 Hand comp min 3V 16:42:32 CDT CPT-46839 Abd compl w upright 12:17:01 CDT CPT-27503 Nexplanon Placement 15:07:39 LITHOPONE CHARGER CPT-87355 Removal of IUD 15:07:39 LITHOPONE CHARGER CPT-50663 TB Tubersol 12:09:32 CDT CPT-57452 TB Tubersol 13:55:43 CDT
[2020-03-03] MEDS ORDERED: OXYTOCIN PRE-MIX DRIP 500 ML IV SCH (07:19)
--- NOTE | 2020-03-03 07:19 | History & Physical-OB ---
OB - Chief Complaint & HPI Date/Time Date of Admission: Date of Admission: March 03, 2020 at 06:27 Date seen by a Provider: March 03, 2020 Time Seen by a Provider: 07:10 Chief Complaint/History OB-Reason for Admission/Chief: Section Hx : 4 Hx Para: 1 Expected Date of Delivery: March 10, 2020 Gestational Age in Weeks: 39 Gestational Age in Days: 0 Indication for : desires repeat Admission Nurse Assessment Rev: Yes History of Labs O pos Antibody neg RI HBsAg NR HIV NR (see [facility] for further lab results- no GBS given) Allergies and Home Medications Allergies Coded Allergies: acetaminophen (Verified Allergy, Mild, RASH, 02/26/20) hydrocodone (Verified Allergy, Mild, RASH, 02/26/20) hydromorphone (Verified Allergy, Mild, ITCHING, 02/26/20) oxycodone (Verified Allergy, Mild, RASH, 02/26/20) Home Medications Aspirin 81 Mg Tablet.dr, 81 MG PO DAILY, (Reported) Aspirin 81 Mg Tablet.dr, 81 MG PO DAILY, (Reported) Doxylamine Succinate 25 Mg Tablet, 25 MG PO HS PRN for INSOMNIA, (Reported) Vit W-Ca,Fe,FA(<1 mg) 1 Each Tablet, 1 EACH PO DAILY, (Reported) Pyridoxine HCl 100 Mg Tablet, 100 MG PO DAILY, (Reported) Patient Home Medication List Home Medication List Reviewed: Yes OB - History Hx of Present Care: Yes Ultrasounds: Normal mid trimester US Obstetrical Complications: None Medical Complications: None Delivery History Adverse Rxn to Tranfusion: No (N/A) Patient Past Medical History n/a Social History/Family History HIV/AIDS: No Sexually Transmitted Disease: No Alcohol Use: Denies Use Recreational Drug Use: No 2nd Hand Smoke Exposure: No Immunizations Hepatitis A: Yes Hepatitis B: Yes OB - Admission Exam Physical Exam HEENT: NCAT Heart: Rhythm Normal Lungs: Clear Abdomen: Gravid Extremities: Normal Reflexes: Normal Heart Rate: 130's Accelerations: Accelerations Present Decelerations: No Decelerations Short Term Variability: Present Custodial Variability: Average (6-25) Contractions on Admission: >10 Minutes Apart Labs Laboratory Tests Test 03/03/20 06:50 Range/Units White Blood Count 9.7 4.3-11.0 10^3/uL Red Blood Count 4.11 L 4.35-5.85 10^6/uL Hemoglobin 10.8 L 11.5-16.0 G/DL Hematocrit 34 L 35-52 % Mean Corpuscular Volume 82 80-99 FL Mean Corpuscular Hemoglobin 26 25-34 PG Mean Corpuscular Hemoglobin Concent 32 32-36 G/DL Red Cell Distribution Width 13.6 10.0-14.5 % Platelet Count 179 130-400 10^3/uL Mean Platelet Volume 10.7 H 7.4-10.4 FL Neutrophils (%) (Auto) 66 42-75 % Lymphocytes (%) (Auto) 22 12-44 % Monocytes (%) (Auto) 10 0-12 % Eosinophils (%) (Auto) 2 0-10 % Basophils (%) (Auto) 0 0-10 % Neutrophils # (Auto) 6.4 1.8-7.8 X 10^3 Lymphocytes # (Auto) 2.2 1.0-4.0 X 10^3 Monocytes # (Auto) 1.0 0.0-1.0 X 10^3 Eosinophils # (Auto) 0.2 0.0-0.3 10^3/uL Basophils # (Auto) 0.0 0.0-0.1 10^3/uL OB - Assessment/Plan/Diagnosis Assessment Assessment: section Admission Dx 34 yo @ 39 weeks Previous Admission Status: Inpatient Order (span 2 midnights) Reason for Inpatient Admission: Term Repeat Plan Plan: Section MARYANA GARCIA DO March 03, 2020 07:19
--- OUTSIDE RECORDS SUMMARY | 2020-03-03 07:19 | XMS REPORT | Clinical Summary ---
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 Dysthymic disorder URI 465.9 Active Jono Gagnon DO Acu te upper respiratory infections of unspecified site Vaginal bleeding 623.8 Active Brii MARROQUIN RN Other specified noninflammatory disorders of vagina FH COLON CANCER ICD-V16.0 Inactive Jose Zhong [...] ICD-595.9 Inactive Liliana Estrada MD Ph D Urinary frequency ICD-788.41 Inactive Roseann willett Medication List Medication Instructions Start Date Stop Date Generic Name NDC Status Provider Patient Instruction NAPROXEN 500 MG TAB Take 1 tab BID NAPROXEN [id number] 15 Active Brii Larson APRN Active NEXPLANON IMPL Left arm subcutaneously ETONOGES TREL IMPL 33288474345 Active Brii Larson APRN Active CEFDINIR 300 MG CAPS 1 po BID x 10 days CEFDINI R 03507701117 No Longer Active Brii Larson APRN Active PREDNISONE 20 MG TAB 1 tablet daily for airway inflammation 2015 PREDNISONE 05279153922 No Longer Active Brii Larson APRN Active CEFDINIR 300 MG CAPS 1 po BID x 10 days CEFDINI R 98490017569 No Longer Active Jono Gagnon DO Active FLONASE 50 MCG/ACT SUSP 1 spray each nostril twice d aily for allergies and runny nose until gone FLUTICASONE PROPIONATE No Longe r Active Jono Gagnon DO Active ALPRAZOLAM 0.25 MG TAB 1 tablet by mouth every 8 hours as ne eded for stress ALPRAZOLAM 94117950760 No Longer Active Jono Gagnon DO Active ZOLOFT 50 MG TAB 1 tablet by mouth daily SERTRA LINE HCL 46787547116 Active Arie Casper MD Active LOMOTIL 2.5-0.025 MG TAB 1 tab po four times a day as needed for diarrhea DIPHENOXYLATE-ATROPINE 99600652285 Active Brii Lrason APRN Active ZITHROMAX Z-EMIL 250 MG TABS 2 today, then 1 daily for 4 days 201 03/31/18 AZITHROMYCIN 25050116133 No Longer Active Arie Casper MD Active PROTONIX 40 MG ORAL TBEC 1 po q a.m. PANTOPRAZO LE SODIUM 71844769452 Active Arie Casper MD Active PREDNISONE 20 MG TAB 2 tabs daily for 3 days, 1 t ab daily for 3 days, 1/2 tab daily for 2 days PREDNISONE 29764585515 No Longer Active Brii Larson APRN Active PREDNISONE 20 MG TAB 1 tablet twice daily for 2 d ays, then 1 tablet once daily for 2 days PREDNISONE 37732072827 No Longer Active Brii Larson APRN Active PROMETHAZINE HCL 12.5 MG TABS 1 tablet by mouth every 6 hours as needed for nausea/vomiting PROMETHAZINE HCL 45215329309 No Longe r Active Jono Gagnon DO Active CITRATE OF MAGNESIA ORAL SOLN 1 bottle today for constipation 20 07/10/15 MAGNESIUM CITRATE 22550132800 No Longer Active Jono Gagnon DO Active ZOFRAN 4 MG ORAL TABS 1 TAB PO Q 6 HRS PRN NAUSEA 2014 ONDANSETRON HCL 75483293049 No Longer Active Brii Larson APRN A ctive LOMOTIL 2.5-0.025 MG TAB 1 to 2 four times a day as needed f or diarrhea DIPHENOXYLATE-ATROPINE 77639265955 No Longer Active January Larson APRN Active AMOXICILLIN 500 MG TABS 2 tabs twice a day for 10 days AMOXICILLIN 58911461778 No Longer Active Brii Larson APRN Acti ve CYCLOBENZAPRINE HCL 10 MG TABS 1/2 - 1 tablet by mouth three times daily as needed for muscle spasm/pain CYCLOBENZAPRINE HCL 47595974635 No Longer Active Arie Casper MD Active LOMOTIL 2.5-0.025 MG TABS 1 to 2 four times a day as needed for diarrhea DIPHENOXYLATE-ATROPINE 49525174100 No Longer Active D freddy Casper MD Active MACROBID 100 MG CAP 1 cap by mouth twice daily NITROFURANTOIN MONOHYD MACRO 18637777689 No Longer Active Arie Casper MD Active ZYRTEC ALLERGY 10 MG CAPS 1 po qd CETIRIZINE HCL 63925257710 No Longer Active Arie Casper MD Active AZITHROMYCIN 250 MG TABS 2 po qd x 1 day, then 1 po qd x 4 days AZITHROMYCIN 90195651689 No Longer Active Jillisael Frazelanette CABRERA Active PREDNISONE 20 MG TAB 2 tabs daily for 3 days, 1 t ab daily for 3 days, 1/2 tab daily for 2 days PREDNISONE 79214242946 No Longer Active Jillina Frazell RICK Active PROMETHAZINE HCL 25 MG TABS 1 four times a day as needed for vomiting PROMETHAZINE HCL 98893134602 No Longer Active Myrna Roberto MD Active BACTRIM DS 800-160 MG TABS 1 twice a day SULFAMETHOXAZOLE-TRIMETHOPRIM 75627782617 No Longer Active Myrna Roberto MD Active VICKS DAYQUIL SEVERE COLD/FLU TABS 1 tab every 6 hours prn 12/10 [id number]-APAP TABS 62536065816 No Longer Active Myrna leigh MD Active GUAIFENESIN-CODEINE 100-10 MG/5ML ORAL SYRP 2 tsp every 6 hours prn GUAIFENESIN-CODEINE 72440206142 No Longer Active Myrna Roberto MD Active NAPROXEN 500 MG TAB one tab PO BID NAPROXEN 332 04666686 No Longer Active Myrna Roberto MD Active AUGMENTIN 875-125 MG TAB 1 tab by mouth twice daily with food 20 08/12/16 AMOXICILLIN-POT CLAVULANATE 31568023643 No Longer Active Liliana Estrada MD PhD Active AMOXICILLIN 500 MG CAP 1 tab by mouth 3 times daily 08/12/16 AMOXICILLIN 82197008894 No Longer Active Liliana Estrada MD PhD Acti ve TESSALON PERLES 100 MG CAP 1 tablet by mouth 3 times daily 11/01 BENZONATATE 08302674329 No Longer Active Liliana Estrada MD PhD Active FLAGYL 500 MG TAB 1 tablet by mouth two times daily 07/11/29 METRONIDAZOLE 16268120138 No Longer Active Nilam Weber Active ZITHROMAX 250 MG TAB 2 po today, then 1 po q days 2-5 AZITHROMYCIN 04756639698 No Longer Active Arie Casper MD Acti ve VITAMINS 0.8 MG TABS take 1 tab po qday 08/08 [id number] 18503498759 No Longer Active Arie Casper MD Active IBUPROFEN 800 MG TABS take one po Q 8 hours IBU PROFEN 35813084344 No Longer Active Arie Casper MD Active [facility] TUSSIN COUGH/COLD CF 5-10-100 MG/5ML LIQD 2 teaspoons ev eliud 4 hours OUINZHTRADCLN-EK-[id number] 45035164867 No Longer Active Blaine Casper MD Active COMTREX COLD/COUGH DAY/NITE MS 5-2-10-325 MG MISC 2 caps deja ry 4 hours [id number]-APAP 15099703161 No Longer Active Landon Casper MD Active CHLORASEPTIC MAX SORE THROAT 15-10 MG LOZG 1 every 2 hours prn 2 BENZOCAINE-MENTHOL 63513167814 No Longer Active Arie Marcelo Active PREDNISONE 20 MG TAB 2 tabs daily for 3 days, 1 t ab daily for 3 days, 1/2 tab daily for 2 days PREDNISONE 94111835459 No Longer Active Jose Zhong MD Active AZITHROMYCIN 250 MG TABS 2 po qd x 1 day, then 1 po qd x 4 days AZITHROMYCIN 68152691579 No Longer Active Jose Zhong MD Active ZOFRAN ODT 4 MG TBDP 1 po q6hr PRN Nausea ONDAN SETRON 01835677021 No Longer Active Rich Rosales MD Active ZOFRAN 4 MG TABS 1 tablet every 4 hours ONDANSE JERRELL HCL 62201226610 No Longer Active Rich Rosales MD Active MUCINEX 600 MG [id number]-[id number] Take 1-2 tablets every 12 hours GUAIFENESIN 76797957912 No Longer Active Rich Rosales MD Activ e BACTRIM 400-80 MG TABS take one po BID SULFAMETHOXAZOLE-TRIMETHOPRIM 94930537969 No Longer Active Abelardo HERNANDEZ Active AZITHROMYCIN 500 MG TABS 1 PO q day x 6 days AZ ITHROMYCIN 76875746357 No Longer Active Tin HERNANDEZ Active ZITHROMAX 250 MG TAB 2 po today, then 1 po q days 2-5 AZITHROMYCIN 52221846327 No Longer Active Arie Casper MD Acti ve ZITHROMAX 250 MG TAB 2 po today, then 1 po q days 2-5 AZITHROMYCIN 82183248997 No Longer Active Arie Casper MD Acti ve AMOXICILLIN 500 MG CAP 1 tab by mouth 3 times daily 20 09/23/20 AMOXICILLIN 71738024833 No Longer Active Arie Casper MD Acti ve BACTRIM DS 800-160 MG TAB 1 tab by mouth twice daily 2 TRIMETHOPRIM-SULFAMETHOXAZOLE 31848865835 No Longer Active Arie Casper MD Active AMOXICILLIN 500 MG TABS take 1 tab po TID AMOXI CILLIN 42109892210 No Longer Active Arie Casper MD Active BACTRIM DS 800-160 MG TAB 1 tab by mouth twice daily 2 BACTRIM DS 800-160 MG TAB 896194 TRIMETHOPRIM-SULFAMETHOXAZOLE Inac tive MUCINEX 600 MG [id number]-WWT Take 1-2 tablets every 12 hours MUCINEX 600 MG [id number] GUAIFENESIN Inactive ZOFRAN 4 MG TABS 1 tablet every 4 hours ZOFRAN 4 MG TABS 604020 ONDANSETRON HCL Inactive ZOFRAN ODT 4 MG TBDP 1 po q6hr PRN Nausea ZOFRAN ODT 4 MG TBDP 001042 ONDANSETRON Inactive CHLORASEPTIC MAX SORE THROAT 15-10 MG LOZG 1 every 2 hours prn 2 CHLORASEPTIC MAX SORE THROAT 15-10 MG LOZG BENZO ARINA-MENTHOL Inactive COMTREX COLD/COUGH DAY/NITE MS 5-2-10-325 MG MISC 2 caps deja ry 4 hours COMTREX COLD/COUGH DAY/NITE MS 5-2-10-325 MG MIS C [id number] Inactive [facility] TUSSIN COUGH/COLD CF 5-10-100 MG/5ML LIQD 2 teaspoons ev eliud 4 hours [facility] TUSSIN COUGH/COLD CF 5-10-100 MG/5ML LIQD [id number]-[id number] Inactive IBUPROFEN 800 MG TABS take one po Q 8 hours IBUPROFEN 800 MG TABS IBUPROFEN Inactive VITAMINS 0.8 MG TABS take 1 tab po qday 08/08 VITAMINS 0.8 MG TABS [id number]-[id number]-FA Inactive TESSALON PERLES 100 MG CAP 1 tablet by mouth 3 times daily 11/01 TESSALON PERLES 100 MG CAP 595702 BENZONATATE Inact zaid AMOXICILLIN 500 MG CAP 1 tab by mouth 3 times daily 08/12/16 AMOXICILLIN 500 MG CAP 871289 AMOXICILLIN Inactive GUAIFENESIN-CODEINE 100-10 MG/5ML ORAL SYRP 2 tsp every 6 hours prn GUAIFENESIN-CODEINE 100-10 MG/5ML ORAL SYRP 084542 GUAIFENESIN-CODEINE Inactive VICKS DAYQUIL SEVERE COLD/FLU TABS 1 tab every 6 hours prn 12/10 VICKS DAYQUIL SEVERE COLD/FLU TABS PHENYLEPHRINE -DM-GG-APAP TABS Inactive BACTRIM DS 800-160 MG TABS 1 twice a day BACTRIM DS 800- 160 MG TABS 930755 SULFAMETHOXAZOLE-TRIMETHOPRIM Inactive PROMETHAZINE HCL 25 MG TABS 1 four times a day as needed for vomiting PROMETHAZINE HCL 25 MG TABS 707099 PROMETHAZINE HCL Inactive ZYRTEC ALLERGY 10 MG CAPS 1 po qd ZY RTEC ALLERGY 10 MG CAPS CETIRIZINE HCL Inactive MACROBID 100 MG CAP 1 cap by mouth twice daily MACROBID 100 MG CAP 7232606 NITROFURANTOIN MONOHYD MACRO Inactive LOMOTIL 2.5-0.025 MG TABS 1 to 2 four times a day as needed for diarrhea LOMOTIL 2.5-0.025 MG TABS 5994736 DIPHENOXYLATE-A TROPINE Inactive CYCLOBENZAPRINE HCL 10 MG TABS 1/2 - 1 tablet by mouth three times daily as needed for muscle spasm/pain CYCLOBENZAP RINE HCL 10 MG TABS 849516 CYCLOBENZAPRINE HCL Inactive AMOXICILLIN 500 MG TABS 2 tabs twice a day for 10 days AMOXICILLIN 500 MG TABS 706106 AMOXICILLIN Inactive LOMOTIL 2.5-0.025 MG TAB 1 to 2 four times a day as needed f or diarrhea LOMOTIL 2.5-0.025 MG TAB 4333351 DIPHENOXYLATE-AT ROPINE Inactive ZOFRAN 4 MG ORAL TABS 1 TAB PO Q 6 HRS PRN NAUSEA 2014 ZOFRAN 4 MG ORAL TABS 932923 ONDANSETRON HCL Inactive CITRATE OF MAGNESIA ORAL SOLN 1 bottle today for constipation 20 07/10/15 CITRATE OF MAGNESIA ORAL SOLN 7215249 MAGNESIUM CITRATE Inactive PROMETHAZINE HCL 12.5 MG TABS 1 tablet by mouth every 6 hours as needed for nausea/vomiting PROMETHAZINE HCL 12.5 MG TABS 885037 PROMETHAZINE HCL Inactive PREDNISONE 20 MG TAB 1 tablet twice daily for 2 d ays, then 1 tablet once daily for 2 days PREDNISONE 20 MG TAB 025047 PREDNISONE Inac tive ALPRAZOLAM 0.25 MG TAB 1 tablet by mouth every 8 hours as ne eded for stress ALPRAZOLAM 0.25 MG TAB 898907 ALPRAZOLAM Inact zaid FLONASE 50 MCG/ACT SUSP 1 spray each nostril twice d aily for allergies and runny nose until gone FLONASE 50 MCG/ACT SUSP F LUTICASONE PROPIONATE Inactive PREDNISONE 20 MG TAB 1 tablet daily for airway inflammation 2015 PREDNISONE 20 MG TAB 028282 PREDNISONE Inactive AMOXICILLIN 500 MG TABS take 1 tab po TID AMOXICILLIN 500 MG TABS 077069 AMOXICILLIN Inactive AMOXICILLIN 500 MG CAP 1 tab by mouth 3 times daily 09/23/20 AMOXICILLIN 500 MG CAP 394930 AMOXICILLIN Inactive ZITHROMAX 250 MG TAB 2 po today, then 1 po q days 2-5 ZITHROMAX 250 MG TAB 3842954 AZITHROMYCIN Inactive ZITHROMAX 250 MG TAB 2 po today, then 1 po q days 2-5 ZITHROMAX 250 MG TAB 8290953 AZITHROMYCIN Inactive AZITHROMYCIN 500 MG TABS 1 PO q day x 6 days 3 AZITHROMYCIN 500 MG TABS 2156813 AZITHROMYCIN Inactive BACTRIM 400-80 MG TABS take one po BID BA CTRIM 400-80 MG TABS 241331 SULFAMETHOXAZOLE-TRIMETHOPRIM Inactive AZITHROMYCIN 250 MG TABS 2 po qd x 1 day, then 1 po qd x 4 days AZITHROMYCIN 250 MG TABS 7387821 AZITHROMYCIN Inactiv e PREDNISONE 20 MG TAB 2 tabs daily for 3 days, 1 t ab daily for 3 days, 1/2 tab daily for 2 days PREDNISONE 20 MG TAB 596494 PREDNISON E Inactive ZITHROMAX 250 MG TAB 2 po today, then 1 po q days 2-5 ZITHROMAX 250 MG TAB 2971533 AZITHROMYCIN Inactive FLAGYL 500 MG TAB 1 tablet by mouth two times daily 07/11/29 FLAGYL 500 MG TAB 751094 METRONIDAZOLE Inactive AUGMENTIN 875-125 MG TAB 1 tab by mouth twice daily with food 20 08/12/16 AUGMENTIN 875-125 MG TAB 931687 AMOXICILLIN-POT CLAVULA ANGELO Inactive NAPROXEN 500 MG TAB one tab PO BID NAPROXEN 500 MG TAB 519477 NAPROXEN Inactive PREDNISONE 20 MG TAB 2 tabs daily for 3 days, 1 t ab daily for 3 days, 1/2 tab daily for 2 days PREDNISONE 20 MG TAB 933901 PREDNISON E Inactive AZITHROMYCIN 250 MG TABS 2 po qd x 1 day, then 1 po qd x 4 days AZITHROMYCIN 250 MG TABS 4121721 AZITHROMYCIN Inactiv e PREDNISONE 20 MG TAB 2 tabs daily for 3 days, 1 t ab daily for 3 days, 1/2 tab daily for 2 days PREDNISONE 20 MG TAB 665989 PREDNISON E Inactive ZITHROMAX Z-EMIL 250 MG TABS 2 today, then 1 daily for 4 days 201 03/31/18 ZITHROMAX Z-EMIL 250 MG TABS 6590106 AZITHROMYCIN Inac tive CEFDINIR 300 MG CAPS 1 po BID x 10 days C EFDINIR 300 MG CAPS 20030127 CEFDINIR Inactive CEFDINIR 300 MG CAPS 1 po BID x 10 days C EFDINIR 300 MG CAPS 20030127 CEFDINIR Inactive Advance Directives Directive Description Start [...] Range Description blood pressure, diastolic - 8462-4 67 mm[Hg] [...] - 3141-9 176.5 [lb_av] Weigh t Measured Diagnostic Results Date Name Value Unit Range Description Immunizations: TB Skin Test - Challenge tests PPD results in mm 0 mm Lab Report: CBC W/DIFF, Comp. Metabolic Panel - Chemistry sodium, serum 136 mmol/L 479-351 0754/04/26 carbon dioxide, venous blood 29.9 mmol/L 21.0-32 [...] count 284 10^3/MM^3 10*3/mm3 142-424 Lab Report: UADIP W/MICRO, [...] 1.025 1.000-1.030 pH, urine, semiquantitative 7.0 5.0-8.5 Lab Report: UHCG, UADIP W/MICRO, AUTO - Chemistry protein, total urine random Negative mg/dL Negative RBC, urine, dipstick Trace Negative human chorionic gonadotropin , urine, qualitative (urine test) Negative Negative Lab Report: UHCG, UADIP W/MICRO, AUTO - Urinalysis urine color [...] Negative Encounters Code Encounter Date Provider Facility CPT-08712 Level 3 Est. Patient 15:18:16 [employer] Jono black [facility] CPT-03611 Level 4 Est. Patient 12:08:40 [employer] Steve [facility] CPT-43144 Level 3 Est. Patient 09:24:42 CDT Steve [facility] CPT-83308 Level 3 Est. Patient 09:12:56 CDT Arie mcqueen MD [facility] CPT-45026 Level 3 Est. Patient 16:40:54 CDT Jose Zhong MD [facility] CPT-04255 Level 2 Est. Patient 13:01:13 CDT Steve [facility] CPT-05985 Level 3 Est. Patient 11:55:30 [employer] Jono black [facility] CPT-18478 Level 3 Est. Patient 09:52:36 [employer] Steve [facility] CPT-15599 Level 3 Est. Patient 16:25:33 [employer] Rich Rosales MD [facility]-70942 Level 3 Est. Patient 20:33:55 CDT Arie mcqueen MD [facility]-24972 Level 3 Est. Patient 14:18:20 CDT Rich Rosales MD [facility]-99167 Level 4 Est. Patient 09:34:31 CDT Arie mcqueen MD [facility]-05724 Level 3 Est. Patient 09:08:55 [employer] Liliana vincent MD [facility]-43096 Level 3 Est. Patient 16:44:07 [employer] Arie mcqueen MD [facility]-83408 Level 3 Est. Patient 10:44:27 CDT Arie mcqueen MD [facility] CPT-93255 Level 3 Est. Patient 08:55:41 CDT Jose Zhong MD [facility]-38724 Level 3 Est. Patient 18:37:31 CDT Liliana vincent MD PhD [facility]-89051 Level 3 Est. Patient 14:28:23 CDT Abelardo HERNANDEZ [facility]-64119 Level 3 Est. Patient 15:18:13 [employer] Arie mcqueen MD [facility]-52197 Level 3 Est. Patient 10:11:29 [employer] Arie mcqueen MD [facility]-71860 Level 3 Est. Patient 10:55:57 [employer] Jono black DO [facility] CPT-96831 Level 3 Est. Patient 17:29:05 CDT Arie mcqueen MD [facility] Procedures Code Procedure Name Date Entry Date Standard Desc ription CPT-23878 Sono transvag pelvis non OB uterus ovari es cervix - XRAY USE ONLY 08:58:14 [employer] CPT-06241 UA w micro - LAB USE ONLY 16:04:56 [employer] 2015 CPT-72763 Wet Prep/GEN - LAB USE ONLY 16:04:56 [employer] 20 08/10/29 CPT-18116 First Vx - Ix admin via ID I M or jet injects without counseling by physician 16:57:10 CDT CPT-09169 Fluzone Preservative Free Intramuscular Suspension 16:57:10 CDT CPT-J0696 Rocephin 1000 mg (Ceftriaxone) 11:49:23 CDT CPT-J1040 Depo Medrol 80 mg (Methyl Prednisolone A cetate) 11:49:23 CDT CPT-J1100 Decadron 8mg (Dexamethasone) 11:49:23 CDT 2 CPT-59809 Abx/Therapy Injection 11:49:23 CDT CPT-12880 Abx/Therapy Injection 11:49:23 CDT CPT-02018 Abd compl w upright 09:07:26 [employer] CPT-13493 Ear Wash 16:12:47 [employer] CPT-OV Office Visit 11:12:01 CDT CPT-OV Office Visit 15:30:23 CDT CPT-05529 Sono pelvis non OB uterus ovaries cervix 15:50:44 CDT CPT-86905 Hand comp min 3V 16:42:32 CDT CPT-88767 Abd compl w upright 12:17:01 CDT CPT-45337 Nexplanon Placement 15:07:39 [employer] CPT-21154 Removal of IUD 15:07:39 [employer] CPT-38273 TB Tubersol 12:09:32 CDT CPT-20703 TB Tubersol 13:55:43 CDT
--- OUTSIDE RECORDS SUMMARY | 2020-03-03 07:19 | XMS REPORT | Clinical Summary ---
Author Author Admin, Diamante Marcelo Organization [facility] Address Unknown Phone Unavailable Allergies, Adverse Reactions, [...] site Abdominal pain 789.00 Active Brii Larson FINISH PHOTOGRAPHER Abdominal pain, unspecified site Diarrhea 787.91 Resolved [...] cute pharyngitis Nausea 787.02 Active Brii Larson FINISH PHOTOGRAPHER Nausea alone URI 465.9 Active Jono Gagnon [...] Anxiety with depression 300.4 Active Glenn Larson FINISH PHOTOGRAPHER Dysthymic disorder URI 465.9 Active Jono Gagnon DO Acu te upper respiratory infections of unspecified site Vaginal bleeding 623.8 Active Brii MARROQUIN RN Other specified noninflammatory disorders of vagina FH BREAST CANCER ICD-V16.3 Inactive Jose Marcelo [...] MG TAB Take 1 tab BID NAPROXEN 584531328 15 Active Brii Larson APRN Active NEXPLANON IMPL Left arm subcutaneously ETONOGES TREL IMPL 12556769229 Active Brii Larson APRN Active CEFDINIR 300 MG CAPS 1 po BID x 10 days CEFDINI R 93322742162 No Longer Active Brii Larson APRN Active PREDNISONE 20 MG TAB 1 tablet daily for airway inflammation 2015 PREDNISONE 36782782189 No Longer Active Brii Larson APRN Active CEFDINIR 300 MG CAPS 1 po BID x 10 days CEFDINI R 84993866630 No Longer Active Jono W Kalin DO Active FLONASE 50 MCG/ACT SUSP 1 spray each nostril twice d aily for allergies and runny nose until gone FLUTICASONE PROPIONATE No Longe r Active Jono Gagnon DO Active ALPRAZOLAM 0.25 MG TAB 1 tablet by mouth every 8 hours as ne eded for stress ALPRAZOLAM 45489885703 No Longer Active Jono Gagnon DO Active ZOLOFT 50 MG TAB 1 tablet by mouth daily SERTRA LINE HCL 93068718657 Active Arie Casper MD Active LOMOTIL 2.5-0.025 MG TAB 1 tab po four times a day as needed for diarrhea DIPHENOXYLATE-ATROPINE 26395626933 Active Brii Larson APRN Active ZITHROMAX Z-EMIL 250 MG TABS 2 today, then 1 daily for 4 days 201 03/31/18 AZITHROMYCIN 79743897263 No Longer Active Arie Casper MD Active PROTONIX 40 MG ORAL TBEC 1 po q a.m. PANTOPRAZO LE SODIUM 30412585749 Active Carline Ochoa RPT,RMA Active PREDNISONE 20 MG TAB 2 tabs daily for 3 days, 1 t ab daily for 3 days, 1/2 tab daily for 2 days PREDNISONE 40514802805 No Longer Active Brii Larson APRN Active PREDNISONE 20 MG TAB 1 tablet twice daily for 2 d ays, then 1 tablet once daily for 2 days PREDNISONE 61976911343 No Longer Active Brii Larson APRN Active PROMETHAZINE HCL 12.5 MG TABS 1 tablet by mouth every 6 hours as needed for nausea/vomiting PROMETHAZINE HCL 34520724871 No Longe r Active Jono Gagnon DO Active CITRATE OF MAGNESIA ORAL SOLN 1 bottle today for constipation 20 07/10/15 MAGNESIUM CITRATE 49375688819 No Longer Active Jono Gagnon DO Active ZOFRAN 4 MG ORAL TABS 1 TAB PO Q 6 HRS PRN NAUSEA 2014 ONDANSETRON HCL 70028922898 No Longer Active Brii Larson APRN A ctive LOMOTIL 2.5-0.025 MG TAB 1 to 2 four times a day as needed f or diarrhea DIPHENOXYLATE-ATROPINE 39098014238 No Longer Active January Larson APRN Active AMOXICILLIN 500 MG TABS 2 tabs twice a day for 10 days AMOXICILLIN 23905876729 No Longer Active Brii Larson APRN Acti ve CYCLOBENZAPRINE HCL 10 MG TABS 1/2 - 1 tablet by mouth three times daily as needed for muscle spasm/pain CYCLOBENZAPRINE HCL 51993046538 No Longer Active Arie Casper MD Active LOMOTIL 2.5-0.025 MG TABS 1 to 2 four times a day as needed for diarrhea DIPHENOXYLATE-ATROPINE 65889514425 No Longer Active D freddy Casper MD Active MACROBID 100 MG CAP 1 cap by mouth twice daily NITROFURANTOIN MONOHYD MACRO 40048330942 No Longer Active Arie Casper MD Active ZYRTEC ALLERGY 10 MG CAPS 1 po qd CETIRIZINE HCL 44752166626 No Longer Active Arie Casper MD Active AZITHROMYCIN 250 MG TABS 2 po qd x 1 day, then 1 po qd x 4 days AZITHROMYCIN 33127976321 No Longer Active Jillina Franaomi CABRERA Active PREDNISONE 20 MG TAB 2 tabs daily for 3 days, 1 t ab daily for 3 days, 1/2 tab daily for 2 days PREDNISONE 49248904228 No Longer Active Jillina Franaomi CABRERA Active PROMETHAZINE HCL 25 MG TABS 1 four times a day as needed for vomiting PROMETHAZINE HCL 52128166737 No Longer Active Myrna Roberto MD Active BACTRIM DS 800-160 MG TABS 1 twice a day SULFAMETHOXAZOLE-TRIMETHOPRIM 35343503329 No Longer Active Myrna Roberto MD Active VICKS DAYQUIL SEVERE COLD/FLU TABS 1 tab every 6 hours prn 12/10 [id number]-LD-HE-APAP TABS 54925220181 No Longer Active Myrna leigh MD Active GUAIFENESIN-CODEINE 100-10 MG/5ML ORAL SYRP 2 tsp every 6 hours prn GUAIFENESIN-CODEINE 44941742313 No Longer Active Myrna Roberto MD Active NAPROXEN 500 MG TAB one tab PO BID NAPROXEN 332 65410662 No Longer Active Myrna Roberto MD Active AUGMENTIN 875-125 MG TAB 1 tab by mouth twice daily with food 20 08/12/16 AMOXICILLIN-POT CLAVULANATE 01373791655 No Longer Active Liliana Estrada MD PhD Active AMOXICILLIN 500 MG CAP 1 tab by mouth 3 times daily 08/12/16 AMOXICILLIN 60757480101 No Longer Active Liliana Estrada MD PhD Acti ve TESSALON PERLES 100 MG CAP 1 tablet by mouth 3 times daily 11/01 BENZONATATE 60408812043 No Longer Active Liliana Estrada MD PhD Active FLAGYL 500 MG TAB 1 tablet by mouth two times daily 07/11/29 METRONIDAZOLE 50579907793 No Longer Active Nilam Weber Active ZITHROMAX 250 MG TAB 2 po today, then 1 po q days 2-5 AZITHROMYCIN 43332265151 No Longer Active Arie Casper MD Acti ve VITAMINS 0.8 MG TABS take 1 tab po qday 08/08 [id number] 00325305520 No Longer Active Arie Casper MD Active IBUPROFEN 800 MG TABS take one po Q 8 hours IBU PROFEN 21882061486 No Longer Active Arie Casper MD Active [facility] TUSSIN COUGH/COLD CF 5-10-100 MG/5ML LIQD 2 teaspoons ev eliud 4 hours [id number] 72888519104 No Longer Active Blaine Casper MD Active COMTREX COLD/COUGH DAY/NITE MS 5-2-10-325 MG MISC 2 caps deja ry 4 hours [id number] 71972841904 No Longer Active Da aleksandra Casper MD Active CHLORASEPTIC MAX SORE THROAT 15-10 MG LOZG 1 every 2 hours prn 2 BENZOCAINE-MENTHOL 16042382274 No Longer Active Arie Marcelo Active PREDNISONE 20 MG TAB 2 tabs daily for 3 days, 1 t ab daily for 3 days, 1/2 tab daily for 2 days PREDNISONE 99865104836 No Longer Active Jose Zhong MD Active AZITHROMYCIN 250 MG TABS 2 po qd x 1 day, then 1 po qd x 4 days AZITHROMYCIN 56706361702 No Longer Active Jose Zhong MD Active ZOFRAN ODT 4 MG TBDP 1 po q6hr PRN Nausea ONDAN SETRON 11843468653 No Longer Active Rich Rosales MD Active ZOFRAN 4 MG TABS 1 tablet every 4 hours ONDANSE JERRELL HCL 58349214261 No Longer Active Rich Rosales MD Active MUCINEX 600 MG [id number] Take 1-2 tablets every 12 hours GUAIFENESIN 27831954328 No Longer Active Rich Rosales MD Activ e BACTRIM 400-80 MG TABS take one po BID SULFAMETHOXAZOLE-TRIMETHOPRIM 68139571424 No Longer Active Abelardo HERNANDEZ Active AZITHROMYCIN 500 MG TABS 1 PO q day x 6 days AZ ITHROMYCIN 92783093353 No Longer Active Tin HERNANDEZ Active ZITHROMAX 250 MG TAB 2 po today, then 1 po q days 2-5 AZITHROMYCIN 94349600147 No Longer Active Arie Casper MD Acti ve ZITHROMAX 250 MG TAB 2 po today, then 1 po q days 2-5 AZITHROMYCIN 80076644237 No Longer Active Arie Casper MD Acti ve AMOXICILLIN 500 MG CAP 1 tab by mouth 3 times daily 20 09/23/20 AMOXICILLIN 04222657371 No Longer Active Arie Casper MD Acti ve BACTRIM DS 800-160 MG TAB 1 tab by mouth twice daily 2 TRIMETHOPRIM-SULFAMETHOXAZOLE 32623466308 No Longer Active Arie Casper MD Active AMOXICILLIN 500 MG TABS take 1 tab po TID AMOXI CILLIN 97309207944 No Longer Active Arie Casper MD Active BACTRIM DS 800-160 MG TAB 1 tab by mouth twice daily 2 BACTRIM DS 800-160 MG TAB 003146 TRIMETHOPRIM-SULFAMETHOXAZOLE Inac tive MUCINEX 600 MG [id number] Take 1-2 tablets every 12 hours MUCINEX 600 MG [id number] GUAIFENESIN Inactive ZOFRAN 4 MG TABS 1 tablet every 4 hours ZOFRAN 4 MG TABS 590890 ONDANSETRON HCL Inactive ZOFRAN ODT 4 MG TBDP 1 po q6hr PRN Nausea ZOFRAN ODT 4 MG TBDP 329728 ONDANSETRON Inactive CHLORASEPTIC MAX SORE THROAT 15-10 MG LOZG 1 every 2 hours prn 2 CHLORASEPTIC MAX SORE THROAT 15-10 MG LOZG BENZO ARINA-MENTHOL Inactive COMTREX COLD/COUGH DAY/NITE MS 5-2-10-325 MG MISC 2 caps deja ry 4 hours COMTREX COLD/COUGH DAY/NITE MS 5-2-10-325 MG MIS C [id number] Inactive [facility] TUSSIN COUGH/COLD CF 5-10-100 MG/5ML LIQD 2 teaspoons ev eliud 4 hours [facility] TUSSIN COUGH/COLD CF 5-10-100 MG/5ML LIQD [id number] Inactive IBUPROFEN 800 MG TABS take one po Q 8 hours IBUPROFEN 800 MG TABS IBUPROFEN Inactive VITAMINS 0.8 MG TABS take 1 tab po qday 08/08 VITAMINS 0.8 MG TABS [id number] Inactive TESSALON PERLES 100 MG CAP 1 tablet by mouth 3 times daily 11/01 TESSALON PERLES 100 MG CAP 652454 BENZONATATE Inact zaid AMOXICILLIN 500 MG CAP 1 tab by mouth 3 times daily 08/12/16 AMOXICILLIN 500 MG CAP 851996 AMOXICILLIN Inactive GUAIFENESIN-CODEINE 100-10 MG/5ML ORAL SYRP 2 tsp every 6 hours prn GUAIFENESIN-CODEINE 100-10 MG/5ML ORAL SYRP 538829 GUAIFENESIN-CODEINE Inactive VICKS DAYQUIL SEVERE COLD/FLU TABS 1 tab every 6 hours prn 12/10 VICKS DAYQUIL SEVERE COLD/FLU TABS PHENYLEPHRINE -DM-GG-APAP TABS Inactive BACTRIM DS 800-160 MG TABS 1 twice a day BACTRIM DS 800- 160 MG TABS 669454 SULFAMETHOXAZOLE-TRIMETHOPRIM Inactive PROMETHAZINE HCL 25 MG TABS 1 four times a day as needed for vomiting PROMETHAZINE HCL 25 MG TABS 078014 PROMETHAZINE HCL Inactive ZYRTEC ALLERGY 10 MG CAPS 1 po qd ZY RTEC ALLERGY 10 MG CAPS CETIRIZINE HCL Inactive MACROBID 100 MG CAP 1 cap by mouth twice daily MACROBID 100 MG CAP 5091635 NITROFURANTOIN MONOHYD MACRO Inactive LOMOTIL 2.5-0.025 MG TABS 1 to 2 four times a day as needed for diarrhea LOMOTIL 2.5-0.025 MG TABS 2271283 DIPHENOXYLATE-A TROPINE Inactive CYCLOBENZAPRINE HCL 10 MG TABS 1/2 - 1 tablet by mouth three times daily as needed for muscle spasm/pain CYCLOBENZAP RINE HCL 10 MG TABS 977723 CYCLOBENZAPRINE HCL Inactive AMOXICILLIN 500 MG TABS 2 tabs twice a day for 10 days AMOXICILLIN 500 MG TABS 197098 AMOXICILLIN Inactive LOMOTIL 2.5-0.025 MG TAB 1 to 2 four times a day as needed f or diarrhea LOMOTIL 2.5-0.025 MG TAB 9579784 DIPHENOXYLATE-AT ROPINE Inactive ZOFRAN 4 MG ORAL TABS 1 TAB PO Q 6 HRS PRN NAUSEA 2014 ZOFRAN 4 MG ORAL TABS 216335 ONDANSETRON HCL Inactive CITRATE OF MAGNESIA ORAL SOLN 1 bottle today for constipation 20 07/10/15 CITRATE OF MAGNESIA ORAL SOLN 2929095 MAGNESIUM CITRATE Inactive PROMETHAZINE HCL 12.5 MG TABS 1 tablet by mouth every 6 hours as needed for nausea/vomiting PROMETHAZINE HCL 12.5 MG TABS 233858 PROMETHAZINE HCL Inactive PREDNISONE 20 MG TAB 1 tablet twice daily for 2 d ays, then 1 tablet once daily for 2 days PREDNISONE 20 MG TAB 595041 PREDNISONE Inac tive ALPRAZOLAM 0.25 MG TAB 1 tablet by mouth every 8 hours as ne eded for stress ALPRAZOLAM 0.25 MG TAB 312685 ALPRAZOLAM Inact zaid FLONASE 50 MCG/ACT SUSP 1 spray each nostril twice d aily for allergies and runny nose until gone FLONASE 50 MCG/ACT SUSP F LUTICASONE PROPIONATE Inactive PREDNISONE 20 MG TAB 1 tablet daily for airway inflammation 2015 PREDNISONE 20 MG TAB 840697 PREDNISONE Inactive AMOXICILLIN 500 MG TABS take 1 tab po TID AMOXICILLIN 500 MG TABS 567781 AMOXICILLIN Inactive AMOXICILLIN 500 MG CAP 1 tab by mouth 3 times daily 09/23/20 AMOXICILLIN 500 MG CAP 548094 AMOXICILLIN Inactive ZITHROMAX 250 MG TAB 2 po today, then 1 po q days 2-5 ZITHROMAX 250 MG TAB 4918614 AZITHROMYCIN Inactive ZITHROMAX 250 MG TAB 2 po today, then 1 po q days 2-5 ZITHROMAX 250 MG TAB 9058718 AZITHROMYCIN Inactive AZITHROMYCIN 500 MG TABS 1 PO q day x 6 days 3 AZITHROMYCIN 500 MG TABS 8515339 AZITHROMYCIN Inactive BACTRIM 400-80 MG TABS take one po BID BA CTRIM 400-80 MG TABS 939609 SULFAMETHOXAZOLE-TRIMETHOPRIM Inactive AZITHROMYCIN 250 MG TABS 2 po qd x 1 day, then 1 po qd x 4 days AZITHROMYCIN 250 MG TABS 1993911 AZITHROMYCIN Inactiv e PREDNISONE 20 MG TAB 2 tabs daily for 3 days, 1 t ab daily for 3 days, 1/2 tab daily for 2 days PREDNISONE 20 MG TAB 331257 PREDNISON E Inactive ZITHROMAX 250 MG TAB 2 po today, then 1 po q days 2-5 ZITHROMAX 250 MG TAB 5571700 AZITHROMYCIN Inactive FLAGYL 500 MG TAB 1 tablet by mouth two times daily 07/11/29 FLAGYL 500 MG TAB 387183 METRONIDAZOLE Inactive AUGMENTIN 875-125 MG TAB 1 tab by mouth twice daily with food 20 08/12/16 AUGMENTIN 875-125 MG TAB 036724 AMOXICILLIN-POT CLAVULA ANGELO Inactive NAPROXEN 500 MG TAB one tab PO BID NAPROXEN 500 MG TAB 145302 NAPROXEN Inactive PREDNISONE 20 MG TAB 2 tabs daily for 3 days, 1 t ab daily for 3 days, 1/2 tab daily for 2 days PREDNISONE 20 MG TAB 021351 PREDNISON E Inactive AZITHROMYCIN 250 MG TABS 2 po qd x 1 day, then 1 po qd x 4 days AZITHROMYCIN 250 MG TABS 4976413 AZITHROMYCIN Inactiv e PREDNISONE 20 MG TAB 2 tabs daily for 3 days, 1 t ab daily for 3 days, 1/2 tab daily for 2 days PREDNISONE 20 MG TAB 161606 PREDNISON E Inactive ZITHROMAX Z-EMIL 250 MG TABS 2 today, then 1 daily for 4 days 201 03/31/18 ZITHROMAX Z-EMIL 250 MG TABS 9817690 AZITHROMYCIN Inac tive CEFDINIR 300 MG CAPS [...] Panel - Chemistry sodium, serum 136 mmol/L 195-751 7166/04/26 carbon dioxide, venous blood 29.9 mmol/L 21.0-32 [...] Negative Encounters Code Encounter Date Provider Facility CPT-52310 Level 4 Est. Patient 12:08:40 CABLE REELER Steve FINISH PHOTOGRAPHER [facility] CPT-04090 Level 3 Est. Patient 09:24:42 CDT Steve [facility] CPT-45661 Level 3 Est. Patient 09:12:56 CDT Arie mcqueen MD [facility] CPT-89652 Level 3 Est. Patient 16:40:54 CDT Jose Zhong MD [facility] CPT-64502 Level 2 Est. Patient 13:01:13 CDT Steve FINISH PHOTOGRAPHER [facility] CPT-16464 Level 3 Est. Patient 11:55:30 CABLE REELER Jono black DO [facility] CPT-69960 Level 3 Est. Patient 09:52:36 CABLE REELER Steve CABRERA [facility] CPT-75494 Level 3 Est. Patient 16:25:33 CABLE REELER Rich Rosales MD [facility] CPT-25888 Level 3 Est. Patient 20:33:55 CDT Arie mcqueen MD [facility] CPT-86639 Level 3 Est. Patient 14:18:20 CDT Rich Rosales MD [facility] CPT-72494 Level 4 Est. Patient 09:34:31 CDT Arie mcqueen MD [facility]-22152 Level 3 Est. Patient 09:08:55 CABLE REELER Liliana vincent MD PhD [facility]-17277 Level 3 Est. Patient 16:44:07 CABLE REELER Arie mcqueen MD [facility] CPT-76280 Level 3 Est. Patient 10:44:27 CDT Arie mcqueen MD [facility] CPT-59697 Level 3 Est. Patient 08:55:41 CDT Jose Zhong MD [facility] CPT-87812 Level 3 Est. Patient 18:37:31 CDT Liliana vincent MD PhD [facility] CPT-16241 Level 3 Est. Patient 14:28:23 CDT Abelardo HERNANDEZ [facility] CPT-73400 Level 3 Est. Patient 15:18:13 CABLE REELER Arie mcqueen MD [facility] CPT-69628 Level 3 Est. Patient 10:11:29 CABLE REELER Arie mcqueen MD [facility] CPT-15829 Level 3 Est. Patient 10:55:57 CABLE REELER Jono black DO [facility] CPT-10882 Level 3 Est. Patient 17:29:05 CDT Arie mcqueen MD [facility] Procedures Code Procedure Name Date Entry Date Standard Desc ription CPT-22361 Sono transvag pelvis non OB uterus ovari es cervix - XRAY USE ONLY 08:58:14 CABLE REELER CPT-42908 UA w micro - LAB USE ONLY 16:04:56 CABLE REELER 2015 CPT-66629 Wet Prep/GEN - LAB USE ONLY 16:04:56 CABLE REELER 20 08/10/29 CPT-15931 First Vx - Ix admin via ID I M or jet injects without counseling by physician 16:57:10 CDT CPT-06478 Fluzone Preservative Free Intramuscular Suspension 16:57:10 CDT CPT-J0696 Rocephin 1000 mg (Ceftriaxone) 11:49:23 CDT CPT-J1040 Depo Medrol 80 mg (Methyl Prednisolone A cetate) 11:49:23 CDT CPT-J1100 Decadron 8mg (Dexamethasone) 11:49:23 CDT 2 CPT-79374 Abx/Therapy Injection 11:49:23 CDT CPT-51453 Abx/Therapy Injection 11:49:23 CDT CPT-66634 Abd compl w upright 09:07:26 CABLE REELER CPT-62922 Ear Wash 16:12:47 CABLE REELER CPT-OV Office Visit 11:12:01 CDT CPT-OV Office Visit 15:30:23 CDT CPT-76783 Sono pelvis non OB uterus ovaries cervix 15:50:44 CDT CPT-43243 Hand comp min 3V 16:42:32 CDT CPT-62357 Abd compl w upright 12:17:01 CDT CPT-74243 Nexplanon Placement 15:07:39 CABLE REELER CPT-90805 Removal of IUD 15:07:39 CABLE REELER CPT-70928 TB Tubersol 12:09:32 CDT CPT-73810 TB Tubersol 13:55:43 CDT
--- OUTSIDE RECORDS SUMMARY | 2020-03-03 07:19 | XMS REPORT | Clinical Summary ---
Author Author Admin, Diamante Marcelo Organization [employer] Address Unknown Phone Unavailable Allergies, Adverse Reactions, [...] cute pharyngitis Nausea 787.02 Active Brii Larson PERSONAL DRIVER Nausea alone URI 465.9 Active Jono Gagnon DO Acu te upper respiratory infections of unspecified site Allergic rhinitis 477.9 Active Brii Christianson PRN Allergic rhinitis, cause unspecified Abdominal pain, right lower quadrant 789.03 Active Jose Zhong MD Abdominal pain, right lower quadrant Urinary frequency 788.41 Inactive Roseann Crawford Urinary frequency Urinary frequency 788.41 Active 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, 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 Urinary frequency Sinusitis - acute 461.9 Active Brii Christianson PRN Acute sinusitis, unspecified Anxiety with depression 300.4 Active Glenn Larson PERSONAL DRIVER Dysthymic disorder URI 465.9 Active Jono Gagnon DO Acu te upper respiratory infections of unspecified site Vaginal bleeding 623.8 Active Brii MARROQUIN RN Other specified noninflammatory disorders of vagina High risk sexual behavior V69.2 Active Arie Casper MD High-risk sexual behavior GERD 530.81 Active Arie Casper MD Esophageal reflux Encounter for surveillance of implantable subdermal contraceptiv e Active Brii Larson APRN BREAST CANCER ICD-V16.3 Inactive Jose Marcelo COLON [...] discharge ICD-623.5 Inactive Liliana lares MD PhD Medication List Medication Instructions Start Date Stop Date Generic Name NDC Status Provider Patient Instruction BACTRIM DS 800-160 MG TAB 1 tab by mouth twice daily 2 TRIMETHOPRIM-SULFAMETHOXAZOLE 48279236497 Active Roseann Crawford Active NEXPLANON IMPL right arm subcutaneously ETONOGE STREL IMPL 67563952876 No Longer Active Brii Larson APRN Active TUSSIONEX PENNKINETIC ER 10-8 MG/5ML LQCR 5ml po q12hr PRN Cough HYDROCOD POLST-CHLORPHEN POLST 07686737492 No Longer Active Brii Larson APRN Active CETIRIZINE HCL 10 MG ORAL TABS 1 po qd PRN Allergies 2 CETIRIZINE HCL 74667995405 No Longer Active Brii Larson APRN Ac tive PREDNISONE 20 MG TAB 2 tabs daily for 3 days, 1 t ab daily for 3 days, 1/2 tab daily for 2 days PREDNISONE 31620332371 No Longer Active Arie Casper MD Active LOMOTIL 2.5-0.025 MG TAB 1 tab po four times a day as needed for diarrhea DIPHENOXYLATE-ATROPINE 62160254464 No Longer Active D freddy Casper MD Active ZOLOFT 50 MG TAB 1 tablet by mouth daily SERTRA LINE HCL 02925405978 No Longer Active Arie Casper MD Active NAPROXEN 500 MG TAB Take 1 tab BID NAPROXEN 332 16735433 No Longer Active Arie Casper MD Active CEFDINIR 300 MG CAPS 1 po BID x 10 days CEFDINI R 12223208354 No Longer Active Brii Larson APRN Active PREDNISONE 20 MG TAB 1 tablet daily for airway inflammation 2015 PREDNISONE 98668785985 No Longer Active Brii Larson APRN Active CEFDINIR 300 MG CAPS 1 po BID x 10 days CEFDINI R 97598613582 No Longer Active Jono Gagnon DO Active FLONASE 50 MCG/ACT SUSP 1 spray each nostril twice d aily for allergies and runny nose until gone FLUTICASONE PROPIONATE No Longe r Active Jono Gagnon DO Active ALPRAZOLAM 0.25 MG TAB 1 tablet by mouth every 8 hours as ne eded for stress ALPRAZOLAM 95220873710 No Longer Active Jono Gagnon DO Active ZITHROMAX Z-EMIL 250 MG TABS 2 today, then 1 daily for 4 days 201 03/31/18 AZITHROMYCIN 71141586521 No Longer Active Arie Casper MD Active PROTONIX 40 MG ORAL TBEC 1 po q a.m. PANTOPRAZO LE SODIUM 87029124428 Active Arie Casper MD Active PREDNISONE 20 MG TAB 2 tabs daily for 3 days, 1 t ab daily for 3 days, 1/2 tab daily for 2 days PREDNISONE 84620063838 No Longer Active Brii Larson APRN Active PREDNISONE 20 MG TAB 1 tablet twice daily for 2 d ays, then 1 tablet once daily for 2 days PREDNISONE 26575399744 No Longer Active Brii Larson APRN Active PROMETHAZINE HCL 12.5 MG TABS 1 tablet by mouth every 6 hours as needed for nausea/vomiting PROMETHAZINE HCL 02494981690 No Longe r Active Jono Gagnon DO Active CITRATE OF MAGNESIA ORAL SOLN 1 bottle today for constipation 20 07/10/15 MAGNESIUM CITRATE 88829234974 No Longer Active Jono Gagnon DO Active ZOFRAN 4 MG ORAL TABS 1 TAB PO Q 6 HRS PRN NAUSEA 2014 ONDANSETRON HCL 04310175106 No Longer Active Brii Larson APRN A ctive LOMOTIL 2.5-0.025 MG TAB 1 to 2 four times a day as needed f or diarrhea DIPHENOXYLATE-ATROPINE 81266072008 No Longer Active January Larson APRN Active AMOXICILLIN 500 MG TABS 2 tabs twice a day for 10 days AMOXICILLIN 14912535475 No Longer Active Brii Larson APRN Acti ve CYCLOBENZAPRINE HCL 10 MG TABS 1/2 - 1 tablet by mouth three times daily as needed for muscle spasm/pain CYCLOBENZAPRINE HCL 01009830821 No Longer Active Arie Casper MD Active LOMOTIL 2.5-0.025 MG TABS 1 to 2 four times a day as needed for diarrhea DIPHENOXYLATE-ATROPINE 72265365987 No Longer Active Fozia Casper MD Active MACROBID 100 MG CAP 1 cap by mouth twice daily NITROFURANTOIN MONOHYD MACRO 18568781945 No Longer Active Arie Casper MD Active ZYRTEC ALLERGY 10 MG CAPS 1 po qd CETIRIZINE HCL 08294219463 No Longer Active Arie Casper MD Active AZITHROMYCIN 250 MG TABS 2 po qd x 1 day, then 1 po qd x 4 days AZITHROMYCIN 40687601486 No Longer Active Jillina Florina PERSONAL DRIVER Active PREDNISONE 20 MG TAB 2 tabs daily for 3 days, 1 t ab daily for 3 days, 1/2 tab daily for 2 days PREDNISONE 60496627682 No Longer Active Jillina Fradeepl PERSONAL DRIVER Active PROMETHAZINE HCL 25 MG TABS 1 four times a day as needed for vomiting PROMETHAZINE HCL 21369445523 No Longer Active Myrna Roberto MD Active BACTRIM DS 800-160 MG TABS 1 twice a day SULFAMETHOXAZOLE-TRIMETHOPRIM 65307673117 No Longer Active Myrna Roberto MD Active VICKS DAYQUIL SEVERE COLD/FLU TABS 1 tab every 6 hours prn 12/10 [id number] TABS 53336823555 No Longer Active Myrna liegh MD Active GUAIFENESIN-CODEINE 100-10 MG/5ML ORAL SYRP 2 tsp every 6 hours prn GUAIFENESIN-CODEINE 95074758233 No Longer Active Myrna Roberto MD Active NAPROXEN 500 MG TAB one tab PO BID NAPROXEN 332 97860125 No Longer Active Myrna Roberto MD Active AUGMENTIN 875-125 MG TAB 1 tab by mouth twice daily with food 20 08/12/16 AMOXICILLIN-POT CLAVULANATE 65923899781 No Longer Active Liliana Estrada MD PhD Active AMOXICILLIN 500 MG CAP 1 tab by mouth 3 times daily 08/12/16 AMOXICILLIN 04327128340 No Longer Active Liliana Estrada MD PhD Acti ve TESSALON PERLES 100 MG CAP 1 tablet by mouth 3 times daily 11/01 BENZONATATE 72045926100 No Longer Active Liliana Estrada MD PhD Active FLAGYL 500 MG TAB 1 tablet by mouth two times daily 07/11/29 METRONIDAZOLE 71008929597 No Longer Active Nilam Weber Active ZITHROMAX 250 MG TAB 2 po today, then 1 po q days 2-5 AZITHROMYCIN 76472590932 No Longer Active Arie Casper MD Acti ve VITAMINS 0.8 MG TABS take 1 tab po qday 08/08 [id number] 46170361229 No Longer Active Arie Casper MD Active IBUPROFEN 800 MG TABS take one po Q 8 hours IBU PROFEN 75183782457 No Longer Active Arie Casper MD Active [facility] TUSSIN COUGH/COLD CF 5-10-100 MG/5ML LIQD 2 teaspoons ev eliud 4 hours [id number] 94697884142 No Longer Active Blaine Casper MD Active COMTREX COLD/COUGH DAY/NITE MS 5-2-10-325 MG MISC 2 caps deaj ry 4 hours [id number] 84085713577 No Longer Active Da aleksandra Casper MD Active CHLORASEPTIC MAX SORE THROAT 15-10 MG LOZG 1 every 2 hours prn 2 BENZOCAINE-MENTHOL 40314831170 No Longer Active Arie Marcelo Active PREDNISONE 20 MG TAB 2 tabs daily for 3 days, 1 t ab daily for 3 days, 1/2 tab daily for 2 days PREDNISONE 97072824218 No Longer Active Jose Zhong MD Active AZITHROMYCIN 250 MG TABS 2 po qd x 1 day, then 1 po qd x 4 days AZITHROMYCIN 64801158320 No Longer Active Jose Zhong MD Active ZOFRAN ODT 4 MG TBDP 1 po q6hr PRN Nausea ONDAN SETRON 45911697153 No Longer Active Rich Rosales MD Active ZOFRAN 4 MG TABS 1 tablet every 4 hours ONDANSE JERRELL HCL 64995232857 No Longer Active Rich Rosales MD Active MUCINEX 600 MG [id number] Take 1-2 tablets every 12 hours GUAIFENESIN 13345162883 No Longer Active Rich Rosales MD Activ e BACTRIM 400-80 MG TABS take one po BID SULFAMETHOXAZOLE-TRIMETHOPRIM 20557343031 No Longer Active Abelardo HERNANDEZ Active AZITHROMYCIN 500 MG TABS 1 PO q day x 6 days AZ ITHROMYCIN 07818986738 No Longer Active Tin HERNANDEZ Active ZITHROMAX 250 MG TAB 2 po today, then 1 po q days 2-5 AZITHROMYCIN 23310060320 No Longer Active Arie Casper MD Acti ve ZITHROMAX 250 MG TAB 2 po today, then 1 po q days 2-5 AZITHROMYCIN 23957138096 No Longer Active Arie Casper MD Acti ve AMOXICILLIN 500 MG CAP 1 tab by mouth 3 times daily 20 09/23/20 AMOXICILLIN 35599600679 No Longer Active Arie Casper MD Acti ve BACTRIM DS 800-160 MG TAB 1 tab by mouth twice daily 2 TRIMETHOPRIM-SULFAMETHOXAZOLE 40790505002 No Longer Active Arie Casper MD Active AMOXICILLIN 500 MG TABS take 1 tab po TID AMOXI CILLIN 64356356672 No Longer Active Arie Casper MD Active BACTRIM DS 800-160 MG TAB 1 tab by mouth twice daily 2 BACTRIM DS 800-160 MG TAB 19821226 TRIMETHOPRIM-SULFAMETHOXAZOLE Inac tive MUCINEX 600 MG [id number] Take 1-2 tablets every 12 hours MUCINEX 600 MG [id number] GUAIFENESIN Inactive ZOFRAN 4 MG TABS 1 tablet every 4 hours ZOFRAN 4 MG TABS 639112 ONDANSETRON HCL Inactive ZOFRAN ODT 4 MG TBDP 1 po q6hr PRN Nausea ZOFRAN ODT 4 MG TBDP 788892 ONDANSETRON Inactive CHLORASEPTIC MAX SORE THROAT 15-10 MG LOZG 1 every 2 hours prn 2 CHLORASEPTIC MAX SORE THROAT 15-10 MG LOZG BENZO ARINA-MENTHOL Inactive COMTREX COLD/COUGH DAY/NITE MS 5-2-10-325 MG MISC 2 caps deja ry 4 hours COMTREX COLD/COUGH DAY/NITE MS 5-2-10-325 MG MIS C [id number] Inactive [facility] TUSSIN COUGH/COLD CF 5-10-100 MG/5ML LIQD 2 teaspoons ev eliud 4 hours [facility] TUSSIN COUGH/COLD CF 5-10-100 MG/5ML LIQD [id number] Inactive IBUPROFEN 800 MG TABS take one po Q 8 hours IBUPROFEN 800 MG TABS IBUPROFEN Inactive VITAMINS 0.8 MG TABS take 1 tab po qday 08/08 VITAMINS 0.8 MG TABS [id number] Inactive TESSALON PERLES 100 MG CAP 1 tablet by mouth 3 times daily 11/01 TESSALON PERLES 100 MG CAP 424296 BENZONATATE Inact zaid AMOXICILLIN 500 MG CAP 1 tab by mouth 3 times daily 20 08/12/16 AMOXICILLIN 500 MG CAP 561357 AMOXICILLIN Inactive GUAIFENESIN-CODEINE 100-10 MG/5ML ORAL SYRP 2 tsp every 6 hours prn GUAIFENESIN-CODEINE 100-10 MG/5ML ORAL SYRP 860572 GUAIFENESIN-CODEINE Inactive VICKS DAYQUIL SEVERE COLD/FLU TABS 1 tab every 6 hours prn 12/10 VICKS DAYQUIL SEVERE COLD/FLU TABS PHENYLEPHRINE -DM-GG-APAP TABS Inactive BACTRIM DS 800-160 MG TABS 1 twice a day BACTRIM DS 800- 160 MG TABS 845112 SULFAMETHOXAZOLE-TRIMETHOPRIM Inactive PROMETHAZINE HCL 25 MG TABS 1 four times a day as needed for vomiting PROMETHAZINE HCL 25 MG TABS 715166 PROMETHAZINE HCL Inactive ZYRTEC ALLERGY 10 MG CAPS 1 po qd ZY RTEC ALLERGY 10 MG CAPS CETIRIZINE HCL Inactive MACROBID 100 MG CAP 1 cap by mouth twice daily MACROBID 100 MG CAP 9310534 NITROFURANTOIN MONOHYD MACRO Inactive LOMOTIL 2.5-0.025 MG TABS 1 to 2 four times a day as needed for diarrhea LOMOTIL 2.5-0.025 MG TABS 5905769 DIPHENOXYLATE-A TROPINE Inactive CYCLOBENZAPRINE HCL 10 MG TABS 1/2 - 1 tablet by mouth three times daily as needed for muscle spasm/pain CYCLOBENZAP RINE HCL 10 MG TABS 275303 CYCLOBENZAPRINE HCL Inactive AMOXICILLIN 500 MG TABS 2 tabs twice a day for 10 days AMOXICILLIN 500 MG TABS 086617 AMOXICILLIN Inactive LOMOTIL 2.5-0.025 MG TAB 1 to 2 four times a day as needed f or diarrhea LOMOTIL 2.5-0.025 MG TAB 4265385 DIPHENOXYLATE-AT ROPINE Inactive ZOFRAN 4 MG ORAL TABS 1 TAB PO Q 6 HRS PRN NAUSEA 2014 ZOFRAN 4 MG ORAL TABS 140349 ONDANSETRON HCL Inactive CITRATE OF MAGNESIA ORAL SOLN 1 bottle today for constipation 20 07/10/15 CITRATE OF MAGNESIA ORAL SOLN 5455879 MAGNESIUM CITRATE Inactive PROMETHAZINE HCL 12.5 MG TABS 1 tablet by mouth every 6 hours as needed for nausea/vomiting PROMETHAZINE HCL 12.5 MG TABS 645733 PROMETHAZINE HCL Inactive PREDNISONE 20 MG TAB 1 tablet twice daily for 2 d ays, then 1 tablet once daily for 2 days PREDNISONE 20 MG TAB 891044 PREDNISONE Inac tive ALPRAZOLAM 0.25 MG TAB 1 tablet by mouth every 8 hours as ne eded for stress ALPRAZOLAM 0.25 MG TAB 963671 ALPRAZOLAM Inact zaid FLONASE 50 MCG/ACT SUSP 1 spray each nostril twice d aily for allergies and runny nose until gone FLONASE 50 MCG/ACT SUSP 3425579 FLUTICASONE PROPIONATE Inactive PREDNISONE 20 MG TAB 1 tablet daily for airway inflammation 2015 PREDNISONE 20 MG TAB 743794 PREDNISONE Inactive NAPROXEN 500 MG TAB Take 1 tab BID NAPROXEN 500 MG TAB 403537 NAPROXEN Inactive ZOLOFT 50 MG TAB 1 tablet by mouth daily ZOLOFT 50 MG TAB 542613 SERTRALINE HCL Inactive LOMOTIL 2.5-0.025 MG TAB 1 tab po four times a day as needed for diarrhea LOMOTIL 2.5-0.025 MG TAB 8362124 DIPHENOXYLATE-AT ROPINE Inactive CETIRIZINE HCL 10 MG ORAL TABS 1 po qd PRN Allergies 2 CETIRIZINE HCL 10 MG ORAL TABS 2962447 CETIRIZINE HCL Inactive TUSSIONEX PENNKINETIC ER 10-8 MG/5ML LQCR 5ml po q12hr PRN Cough TUSSIONEX PENNKINETIC ER 10-8 MG/5ML LQCR HYDROCOD POLST-CHLORPHEN POLST Inactive NEXPLANON IMPL right arm subcutaneously NEXPLANO N IMPL ETONOGESTREL IMPL Inactive AMOXICILLIN 500 MG TABS take 1 tab po TID AMOXICILLIN 500 MG TABS 549298 AMOXICILLIN Inactive AMOXICILLIN 500 MG CAP 1 tab by mouth 3 times daily 09/23/20 AMOXICILLIN 500 MG CAP 206579 AMOXICILLIN Inactive ZITHROMAX 250 MG TAB 2 po today, then 1 po q days 2-5 ZITHROMAX 250 MG TAB 227263 AZITHROMYCIN Inactive ZITHROMAX 250 MG TAB 2 po today, then 1 po q days 2-5 ZITHROMAX 250 MG TAB 306311 AZITHROMYCIN Inactive AZITHROMYCIN 500 MG TABS 1 PO q day x 6 days 3 AZITHROMYCIN 500 MG TABS 5807291 AZITHROMYCIN Inactive BACTRIM 400-80 MG TABS take one po BID BA CTRIM 400-80 MG TABS 186739 SULFAMETHOXAZOLE-TRIMETHOPRIM Inactive AZITHROMYCIN 250 MG TABS 2 po qd x 1 day, then 1 po qd x 4 days AZITHROMYCIN 250 MG TABS 461229 AZITHROMYCIN Inactiv e PREDNISONE 20 MG TAB 2 tabs daily for 3 days, 1 t ab daily for 3 days, 1/2 tab daily for 2 days PREDNISONE 20 MG TAB 430598 PREDNISON E Inactive ZITHROMAX 250 MG TAB 2 po today, then 1 po q days 2-5 ZITHROMAX 250 MG TAB 389214 AZITHROMYCIN Inactive FLAGYL 500 MG TAB 1 tablet by mouth two times daily 07/11/29 FLAGYL 500 MG TAB 631456 METRONIDAZOLE Inactive AUGMENTIN 875-125 MG TAB 1 tab by mouth twice daily with food 20 08/12/16 AUGMENTIN 875-125 MG TAB 293873 AMOXICILLIN-POT CLAVULA ANGELO Inactive NAPROXEN 500 MG TAB one tab PO BID NAPROXEN 500 MG TAB 210764 NAPROXEN Inactive PREDNISONE 20 MG TAB 2 tabs daily for 3 days, 1 t ab daily for 3 days, 1/2 tab daily for 2 days PREDNISONE 20 MG TAB 133274 PREDNISON E Inactive AZITHROMYCIN 250 MG TABS 2 po qd x 1 day, then 1 po qd x 4 days AZITHROMYCIN 250 MG TABS 268528 AZITHROMYCIN Inactiv e PREDNISONE 20 MG TAB 2 tabs daily for 3 days, 1 t ab daily for 3 days, 1/2 tab daily for 2 days PREDNISONE 20 MG TAB 406441 PREDNISON E Inactive ZITHROMAX Z-EMIL 250 MG TABS 2 today, then 1 daily for 4 days 201 03/31/18 ZITHROMAX Z-EMIL 250 MG TABS 585989 AZITHROMYCIN Inac tive CEFDINIR 300 MG CAPS 1 po BID x 10 days C EFDINIR 300 MG CAPS 20030127 CEFDINIR Inactive CEFDINIR 300 MG CAPS 1 po BID x 10 days C EFDINIR 300 MG CAPS 20030127 CEFDINIR Inactive PREDNISONE 20 MG TAB 2 tabs daily for 3 days, 1 t ab daily for 3 days, 1/2 tab daily for 2 days PREDNISONE 20 MG TAB 949696 PREDNISON E Inactive Advance Directives Directive Description [...] Value Unit Range Description blood pressure, diastolic 89 mm[Hg] BP kennedy [...] weight E&M 164 [lb_av] Weight Measure d blood pressure, diastolic 85 mm[Hg] BP kennedy blood pressure, systolic 114 mm[Hg] BP sys pulse rate E&M 82 /min Heart rate temperature E&M 99.7 [degF] Body temp erature weight E&M 171 [lb_av] Weight Measure d blood pressure, diastolic 67 mm[Hg] BP kennedy blood pressure, systolic 102 mm[Hg] BP sys pulse rate E&M 73 /min Heart rate temperature E&M 99 [degF] Body temp erature weight E&M 178.5 [lb_av] Weight Measure d Diagnostic Results Date Name Value Unit Range Description Lab Report: Chlamydia/GC APTIMA/42133 - Lab chlamydia DNA probe NOT DETECTED NOT DETECTED Lab Report: Chlamydia/GC APTIMA/46186 - Microbiology Neisseria gonorrhoeae DNA probe NOT DETECTED NO T DETECTED Lab Report: UADIP W/MICRO, AUTO - Chemis try RBC, urine, dipstick Negative Negative protein, total urine random Negative mg/dL Negative protein, total urine random Negative mg/dL Negative RBC, urine, dipstick 1+ Negative Lab Report: UADIP W/MICRO, AUTO - Urinal ysis urobilinogen, urine, semiquantitative (dipstick) 0.2 E .U./dL Normal leukocyte esterase, urine, by dipstick 1+ Negative nitrite, urine, semiquantitative Negative Neg ative glucose, urine, semiquantitative Negative Neg ative ketones, urine, by test strip Negative Negati ve bilirubin, urine Negative Negative glucose, urine, semiquantitative Negative Neg ative ketones, [...] 5.0-8.5 Encounters Code Encounter Date Provider Facility CPT-68831 Level 3 Est. Patient 15:40:28 CDT Steve PERSONAL DRIVER [facility] CPT-91359 Level 3 Est. Patient 16:40:36 CDT Arie mcqueen MD [facility] CPT-60981 Level 4 Est. Patient 15:29:22 STROBOROMA OPERATOR Arie mcqueen MD [facility] CPT-10116 Level 3 Est. Patient 15:18:16 STROBOROMA OPERATOR Jono black DO [facility] CPT-06125 Level 4 Est. Patient 12:08:40 STROBOROMA OPERATOR Steve [facility] CPT-27774 Level 3 Est. Patient 09:24:42 CDT Steve PERSONAL DRIVER [facility] CPT-42284 Level 3 Est. Patient 09:12:56 CDT Arie mcqueen MD [facility] CPT-01195 Level 3 Est. Patient 16:40:54 CDT Jose Zhong MD [facility] CPT-63884 Level 2 Est. Patient 13:01:13 CDT Steve [facility] CPT-59273 Level 3 Est. Patient 11:55:30 STROBOROMA OPERATOR Jono black [facility] CPT-03806 Level 3 Est. Patient 09:52:36 STROBOROMA OPERATOR Steve PAREKHN [facility] CPT-70686 Level 3 Est. Patient 16:25:33 STROBOROMA OPERATOR Rich Rosales MD [facility] CPT-20692 Level 3 Est. Patient 20:33:55 CDT Arie mcqueen MD [facility] CPT-40307 Level 3 Est. Patient 14:18:20 CDT Rich Rosales MD [facility] CPT-71643 Level 4 Est. Patient 09:34:31 CDT Arie mcqueen MD [facility]-43261 Level 3 Est. Patient 09:08:55 STROBOROMA OPERATOR Liliana vincent MD PhD [facility] CPT-78687 Level 3 Est. Patient 16:44:07 STROBOROMA OPERATOR Arie mcqueen MD [facility] CPT-19568 Level 3 Est. Patient 10:44:27 CDT Arie mcqueen MD [facility]-93453 Level 3 Est. Patient 08:55:41 CDT Jose Zhong MD [facility] CPT-68527 Level 3 Est. Patient 18:37:31 CDT Liliana vincent MD PhD [facility]-03965 Level 3 Est. Patient 14:28:23 CDT Abelardo HERNANDEZ [facility] CPT-02346 Level 3 Est. Patient 15:18:13 STROBOROMA OPERATOR Arie mcqueen MD [facility]-13202 Level 3 Est. Patient 10:11:29 STROBOROMA OPERATOR Arie mcqueen MD [facility] CPT-74029 Level 3 Est. Patient 10:55:57 STROBOROMA OPERATOR Jono black DO [facility] CPT-92750 Level 3 Est. Patient 17:29:05 CDT Arie mcqueen MD [facility] Procedures Code Procedure Name Date Entry Date Standard Desc ription CPT-23298 Nexplanon Removal 15:40:28 CDT CPT-24901 Sono transvag pelvis non OB uterus ovari es cervix - XRAY USE ONLY 08:58:14 STROBOROMA OPERATOR CPT-66884 UA w micro - LAB USE ONLY 16:04:56 STROBOROMA OPERATOR 2015 CPT-26485 Wet Prep/GEN - LAB USE ONLY 16:04:56 STROBOROMA OPERATOR 20 08/10/29 CPT-11570 First Vx - Ix admin via ID I M or jet injects without counseling by physician 16:57:10 CDT CPT-45951 Fluzone Preservative Free Intramuscular Suspension 16:57:10 CDT CPT-J0696 Rocephin 1000 mg (Ceftriaxone) 11:49:23 CDT CPT-J1040 Depo Medrol 80 mg (Methyl Prednisolone A cetate) 11:49:23 CDT CPT-J1100 Decadron 8mg (Dexamethasone) 11:49:23 CDT 2 CPT-55291 Abx/Therapy Injection 11:49:23 CDT CPT-91595 Abx/Therapy Injection 11:49:23 CDT CPT-43198 Abd compl w upright 09:07:26 STROBOROMA OPERATOR CPT-21889 Ear Wash 16:12:47 STROBOROMA OPERATOR CPT-OV Office Visit 11:12:01 CDT CPT-OV Office Visit 15:30:23 CDT CPT-41242 Sono pelvis non OB uterus ovaries cervix 15:50:44 CDT CPT-05460 Hand comp min 3V 16:42:32 CDT CPT-26526 Abd compl w upright 12:17:01 CDT CPT-01654 Nexplanon Placement 15:07:39 STROBOROMA OPERATOR CPT-87282 Removal of IUD 15:07:39 STROBOROMA OPERATOR CPT-33395 TB Tubersol 12:09:32 CDT CPT-80008 TB Tubersol 13:55:43 CDT
--- OUTSIDE RECORDS SUMMARY | 2020-03-03 07:20 | XMS REPORT | Clinical Summary ---
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 PANTOPRAZO LE SODIUM [id number] Active Jose Zhong MD Active PREDNISONE 20 MG TAB 2 tabs daily for 3 days, 1 t ab daily for 3 days, 1/2 tab daily for 2 days PREDNISONE 53324954131 No Longer Active Brii Larson APRN Active PREDNISONE 20 MG TAB 1 tablet twice daily for 2 d ays, then 1 tablet once daily for 2 days PREDNISONE 41160385732 No Longer Active Brii Larson APRN Active FLONASE 50 MCG/ACT SUSP 1 spray each nostril twice d aily for allergies and runny nose until gone FLUTICASONE PROPIONATE Active Jono Gagnon DO Active PROMETHAZINE HCL 12.5 MG TABS 1 tablet by mouth every 6 hours as needed for nausea/vomiting PROMETHAZINE HCL 64346148160 No Longe r Active Jono Gagnon DO Active CITRATE OF MAGNESIA ORAL SOLN 1 bottle today for constipation 20 07/10/15 MAGNESIUM CITRATE 30260506353 No Longer Active Jono Gagnon DO Active ZOFRAN 4 MG ORAL TABS 1 TAB PO Q 6 HRS PRN NAUSEA 2014 ONDANSETRON HCL 74986901789 No Longer Active Brii Larson APRN A ctive LOMOTIL 2.5-0.025 MG TAB 1 to 2 four times a day as needed f or diarrhea DIPHENOXYLATE-ATROPINE 42755035814 No Longer Active January Larson APRN Active AMOXICILLIN 500 MG TABS 2 tabs twice a day for 10 days AMOXICILLIN 00199454094 No Longer Active Brii Larson APRN Acti ve NEXPLANON IMPL ETONOGESTREL IMPL 44048842592 Active Rich Rosales MD Active CYCLOBENZAPRINE HCL 10 MG TABS 1/2 - 1 tablet by mouth three times daily as needed for muscle spasm/pain CYCLOBENZAPRINE HCL 50997856793 No Longer Active Arie Casper MD Active LOMOTIL 2.5-0.025 MG TABS 1 to 2 four times a day as needed for diarrhea DIPHENOXYLATE-ATROPINE 27237099320 No Longer Active Fozia Casper MD Active MACROBID 100 MG CAP 1 cap by mouth twice daily NITROFURANTOIN MONOHYD MACRO 04318593445 No Longer Active Arie Casper MD Active ZYRTEC ALLERGY 10 MG CAPS 1 po qd CETIRIZINE HCL 47665472126 No Longer Active Arie Casper MD Active AZITHROMYCIN 250 MG TABS 2 po qd x 1 day, then 1 po qd x 4 days AZITHROMYCIN 36598714747 No Longer Active Jillina Franaomi CABRERA Active PREDNISONE 20 MG TAB 2 tabs daily for 3 days, 1 t ab daily for 3 days, 1/2 tab daily for 2 days PREDNISONE 51095390693 No Longer Active Jillina Frazell RICK Active PROMETHAZINE HCL 25 MG TABS 1 four times a day as needed for vomiting PROMETHAZINE HCL 06159724924 No Longer Active Myrna Roberto MD Active BACTRIM DS 800-160 MG TABS 1 twice a day SULFAMETHOXAZOLE-TRIMETHOPRIM 35408336227 No Longer Active Myrna Roberto MD Active VICKS DAYQUIL SEVERE COLD/FLU TABS 1 tab every 6 hours prn 12/10 [id number] TABS 45315240317 No Longer Active Myrna leigh MD Active GUAIFENESIN-CODEINE 100-10 MG/5ML ORAL SYRP 2 tsp every 6 hours prn GUAIFENESIN-CODEINE 36173794347 No Longer Active Myrna Roberto MD Active NAPROXEN 500 MG TAB one tab PO BID NAPROXEN 332 20422188 No Longer Active Myrna Roberto MD Active AUGMENTIN 875-125 MG TAB 1 tab by mouth twice daily with food 20 08/12/16 AMOXICILLIN-POT CLAVULANATE 36249664935 No Longer Active Liliana Estrada MD PhD Active AMOXICILLIN 500 MG CAP 1 tab by mouth 3 times daily 08/12/16 AMOXICILLIN 41698226335 No Longer Active Liliana Estrada MD PhD Acti ve TESSALON PERLES 100 MG CAP 1 tablet by mouth 3 times daily 11/01 BENZONATATE 41500459607 No Longer Active Liliana Estrada MD PhD Active FLAGYL 500 MG TAB 1 tablet by mouth two times daily 07/11/29 METRONIDAZOLE 90311631683 No Longer Active Nilam Weber Active ZITHROMAX 250 MG TAB 2 po today, then 1 po q days 2-5 AZITHROMYCIN 64189987267 No Longer Active Arie Casper MD Acti ve VITAMINS 0.8 MG TABS take 1 tab po qday 08/08 [id number] 33730455399 No Longer Active Arie Casper MD Active IBUPROFEN 800 MG TABS take one po Q 8 hours IBU PROFEN 35515466989 No Longer Active Arie Casper MD Active [facility] TUSSIN COUGH/COLD CF 5-10-100 MG/5ML LIQD 2 teaspoons ev eliud 4 hours [id number] 21167730449 No Longer Active Blaine Casper MD Active COMTREX COLD/COUGH DAY/NITE MS 5-2-10-325 MG MISC 2 caps deja ry 4 hours [id number] 92873239694 No Longer Active Da aleksandra Casper MD Active CHLORASEPTIC MAX SORE THROAT 15-10 MG LOZG 1 every 2 hours prn 2 014/04/30 BENZOCAINE-MENTHOL 22768013153 No Longer Active Arie Marcelo Active PREDNISONE 20 MG TAB 2 tabs daily for 3 days, 1 t ab daily for 3 days, 1/2 tab daily for 2 days PREDNISONE 03561743960 No Longer Active Jose Zhong MD Active AZITHROMYCIN 250 MG TABS 2 po qd x 1 day, then 1 po qd x 4 days AZITHROMYCIN 37507372753 No Longer Active Jose Zhong MD Active ZOFRAN ODT 4 MG TBDP 1 po q6hr PRN Nausea ONDAN SETRON 58810874664 No Longer Active Rich Rosales MD Active ZOFRAN 4 MG TABS 1 tablet every 4 hours ONDANSE JERRELL HCL 71753731857 No Longer Active Rich Rosales MD Active MUCINEX 600 MG [id number] Take 1-2 tablets every 12 hours GUAIFENESIN 15551986128 No Longer Active Rich Rosales MD Activ e BACTRIM 400-80 MG TABS take one po BID SULFAMETHOXAZOLE-TRIMETHOPRIM 81971998111 No Longer Active Abelardo HERNANDEZ Active AZITHROMYCIN 500 MG TABS 1 PO q day x 6 days AZ ITHROMYCIN 16191371135 No Longer Active Tin HERNANDEZ Active ZITHROMAX 250 MG TAB 2 po today, then 1 po q days 2-5 AZITHROMYCIN 32209331947 No Longer Active Arie Casper MD Acti ve ZITHROMAX 250 MG TAB 2 po today, then 1 po q days 2-5 AZITHROMYCIN 51185416037 No Longer Active Arie Casper MD Acti ve AMOXICILLIN 500 MG CAP 1 tab by mouth 3 times daily 20 09/23/20 AMOXICILLIN 23834937688 No Longer Active Arie Casper MD Acti ve BACTRIM DS 800-160 MG TAB 1 tab by mouth twice daily 2 TRIMETHOPRIM-SULFAMETHOXAZOLE 12784583108 No Longer Active Arie Casper MD Active AMOXICILLIN 500 MG TABS take 1 tab po TID AMOXI CILLIN 02488505210 No Longer Active Arie Casper MD Active BACTRIM DS 800-160 MG TAB 1 tab by mouth twice daily 2 BACTRIM DS 800-160 MG TAB 530116 TRIMETHOPRIM-SULFAMETHOXAZOLE Inac tive MUCINEX 600 MG [id number] Take 1-2 tablets every 12 hours MUCINEX 600 MG [id number]-[id number] GUAIFENESIN Inactive ZOFRAN 4 MG TABS 1 tablet every 4 hours ZOFRAN 4 MG TABS 482749 ONDANSETRON HCL Inactive ZOFRAN ODT 4 MG TBDP 1 po q6hr PRN Nausea ZOFRAN ODT 4 MG TBDP 916745 ONDANSETRON Inactive CHLORASEPTIC MAX SORE THROAT 15-10 MG LOZG 1 every 2 hours prn 2 CHLORASEPTIC MAX SORE THROAT 15-10 MG LOZG BENZO ARINA-MENTHOL Inactive COMTREX COLD/COUGH DAY/NITE MS 5-2-10-325 MG MISC 2 caps deja ry 4 hours COMTREX COLD/COUGH DAY/NITE MS 5-2-10-325 MG MIS C [id number] Inactive [facility] TUSSIN COUGH/COLD CF 5-10-100 MG/5ML LIQD 2 teaspoons ev eliud 4 hours [facility] TUSSIN COUGH/COLD CF 5-10-100 MG/5ML LIQD [id number] Inactive IBUPROFEN 800 MG TABS take one po Q 8 hours IBUPROFEN 800 MG TABS IBUPROFEN Inactive VITAMINS 0.8 MG TABS take 1 tab po qday 08/08 VITAMINS 0.8 MG TABS [id number] Inactive TESSALON PERLES 100 MG CAP 1 tablet by mouth 3 times daily 11/01 TESSALON PERLES 100 MG CAP 867634 BENZONATATE Inact zaid AMOXICILLIN 500 MG CAP 1 tab by mouth 3 times daily 08/12/16 AMOXICILLIN 500 MG CAP 775900 AMOXICILLIN Inactive GUAIFENESIN-CODEINE 100-10 MG/5ML ORAL SYRP 2 tsp every 6 hours prn GUAIFENESIN-CODEINE 100-10 MG/5ML ORAL SYRP 465547 GUAIFENESIN-CODEINE Inactive VICKS DAYQUIL SEVERE COLD/FLU TABS 1 tab every 6 hours prn 12/10 VICKS DAYQUIL SEVERE COLD/FLU TABS PHENYLEPHRINE -DM-GG-APAP TABS Inactive BACTRIM DS 800-160 MG TABS 1 twice a day BACTRIM DS 800- 160 MG TABS 172027 SULFAMETHOXAZOLE-TRIMETHOPRIM Inactive PROMETHAZINE HCL 25 MG TABS 1 four times a day as needed for vomiting PROMETHAZINE HCL 25 MG TABS 597865 PROMETHAZINE HCL Inactive ZYRTEC ALLERGY 10 MG CAPS 1 po qd ZY RTEC ALLERGY 10 MG CAPS CETIRIZINE HCL Inactive MACROBID 100 MG CAP 1 cap by mouth twice daily MACROBID 100 MG CAP 8068353 NITROFURANTOIN MONOHYD MACRO Inactive LOMOTIL 2.5-0.025 MG TABS 1 to 2 four times a day as needed for diarrhea LOMOTIL 2.5-0.025 MG TABS 2714684 DIPHENOXYLATE-A TROPINE Inactive CYCLOBENZAPRINE HCL 10 MG TABS 1/2 - 1 tablet by mouth three times daily as needed for muscle spasm/pain CYCLOBENZAP RINE HCL 10 MG TABS 508609 CYCLOBENZAPRINE HCL Inactive AMOXICILLIN 500 MG TABS 2 tabs twice a day for 10 days AMOXICILLIN 500 MG TABS 282234 AMOXICILLIN Inactive LOMOTIL 2.5-0.025 MG TAB 1 to 2 four times a day as needed f or diarrhea LOMOTIL 2.5-0.025 MG TAB 6157647 DIPHENOXYLATE-AT ROPINE Inactive ZOFRAN 4 MG ORAL TABS 1 TAB PO Q 6 HRS PRN NAUSEA 2014 ZOFRAN 4 MG ORAL TABS 566155 ONDANSETRON HCL Inactive CITRATE OF MAGNESIA ORAL SOLN 1 bottle today for constipation 20 07/10/15 CITRATE OF MAGNESIA ORAL SOLN 4764639 MAGNESIUM CITRATE Inactive PROMETHAZINE HCL 12.5 MG TABS 1 tablet by mouth every 6 hours as needed for nausea/vomiting PROMETHAZINE HCL 12.5 MG TABS 931167 PROMETHAZINE HCL Inactive PREDNISONE 20 MG TAB 1 tablet twice daily for 2 d ays, then 1 tablet once daily for 2 days PREDNISONE 20 MG TAB 099917 PREDNISONE Inac tive AMOXICILLIN 500 MG TABS take 1 tab po TID AMOXICILLIN 500 MG TABS 270349 AMOXICILLIN Inactive AMOXICILLIN 500 MG CAP 1 tab by mouth 3 times daily 09/23/20 AMOXICILLIN 500 MG CAP 121332 AMOXICILLIN Inactive ZITHROMAX 250 MG TAB 2 po today, then 1 po q days 2-5 ZITHROMAX 250 MG TAB 0356712 AZITHROMYCIN Inactive ZITHROMAX 250 MG TAB 2 po today, then 1 po q days 2-5 ZITHROMAX 250 MG TAB 4453882 AZITHROMYCIN Inactive AZITHROMYCIN 500 MG TABS 1 PO q day x 6 days 3 AZITHROMYCIN 500 MG TABS 6335692 AZITHROMYCIN Inactive BACTRIM 400-80 MG TABS take one po BID BA CTRIM 400-80 MG TABS 978597 SULFAMETHOXAZOLE-TRIMETHOPRIM Inactive AZITHROMYCIN 250 MG TABS 2 po qd x 1 day, then 1 po qd x 4 days AZITHROMYCIN 250 MG TABS 3181077 AZITHROMYCIN Inactiv e PREDNISONE 20 MG TAB 2 tabs daily for 3 days, 1 t ab daily for 3 days, 1/2 tab daily for 2 days PREDNISONE 20 MG TAB 507209 PREDNISON E Inactive ZITHROMAX 250 MG TAB 2 po today, then 1 po q days 2-5 ZITHROMAX 250 MG TAB 7554559 AZITHROMYCIN Inactive FLAGYL 500 MG TAB 1 tablet by mouth two times daily 07/11/29 FLAGYL 500 MG TAB 754871 METRONIDAZOLE Inactive AUGMENTIN 875-125 MG TAB 1 tab by mouth twice daily with food 20 08/12/16 AUGMENTIN 875-125 MG TAB 863770 AMOXICILLIN-POT CLAVULA ANGELO Inactive NAPROXEN 500 MG TAB one tab PO BID NAPROXEN 500 MG TAB 788312 NAPROXEN Inactive PREDNISONE 20 MG TAB 2 tabs daily for 3 days, 1 t ab daily for 3 days, 1/2 tab daily for 2 days PREDNISONE 20 MG TAB 164224 PREDNISON E Inactive AZITHROMYCIN 250 MG TABS 2 po qd x 1 day, then 1 po qd x 4 days AZITHROMYCIN 250 MG TABS 9921177 AZITHROMYCIN Inactiv e PREDNISONE 20 MG TAB 2 tabs daily for 3 days, 1 t ab daily for 3 days, 1/2 tab daily for 2 days PREDNISONE 20 MG TAB 301029 PREDNISON E Inactive Advance Directives Directive Description [...] - 3141-9 164.4 [lb_av] Weigh t Measured blood pressure, diastolic - 8462-4 77 mm[Hg] BP kennedy blood pressure, systolic - 8480-6 115 mm[Hg] BP sys pulse rate E&M - 8867-4 92 /min H eart rate temperature E&M 98.7 [degF] Body temp erature weight E&M - 3141-9 165 [lb_av] Weigh t Measured blood pressure, diastolic - 8462-4 77 mm[Hg] BP kennedy blood pressure, systolic - 8480-6 113 mm[Hg] BP sys pulse rate E&M - 8867-4 114 /min H eart rate temperature E&M 100.5 [degF] Body temp erature weight E&M - 3141-9 164 [lb_av] Weigh t Measured blood pressure, diastolic - 8462-4 84 mm[Hg] BP kennedy blood pressure, systolic - 8480-6 123 mm[Hg] BP sys pulse rate E&M - 8867-4 90 /min H eart rate temperature E&M 99.2 [degF] Body temp erature weight E&M - 3141-9 161 [lb_av] Weigh t Measured Diagnostic Results Date [...] Panel - Chemistry sodium, serum 136 mmol/L 951-326 3191/04/26 carbon dioxide, venous blood 29.9 mmol/L 21.0-32 [...] 284 10^3/MM^3 10*3/mm3 142-424 Lab Report: Chlamydia/GC APTIMA/[id number] - Lab chlamydia DNA probe NOT DETECTED NOT DETECTED Lab Report: Chlamydia/GC APTIMA/80555 - Microbiology Neisseria gonorrhoeae DNA probe NOT DETECTED NO T DETECTED Lab Report: Comp. Metabolic Panel - Chem istry sodium, serum 139 mmol/L 952-895 0307/12/15 carbon dioxide, venous blood 30.2 mmol/L 21.0-32 .0 potassium, serum 3.4 mmol/L 3.5-5.2 chloride, serum 101 mmol/L 98-107 blood glucose 92 mg/dL 65-110 urea nitrogen, blood 5 mg/dL 7-18 creatinine, serum 0.81 mg/dL 0.55-1.30 alanine aminotransferase (SGPT), serum 20 U/L 12-78 aspartate aminotransferase (SGOT), serum 10 U/L 15-37 calcium, serum 8.4 mg/dL 8.5-10.1 bilirubin, serum, total 0.60 mg/dL 0.00-1.00 Lab Report: HIV-1/2 Agn/Darcy/60166, HEPAT ITIS PANEL, ACUTE W/REFLE - Chemistry hepatitis B surface antigen NON-REACTIVE NON-RE ACTIVE Lab Report: RapidStrep Rflx/Cx - Lab Microbial identification kit, rapid strep method Negative Negative Lab Report: UADIP W/MICRO, AUTO - Chemis try RBC, urine, dipstick 2+ Negative protein, total urine random Negative mg/dL [...] Trace Negati ve bilirubin, urine Negative Negative glucose, urine, semiquantitative Negative Neg ative ketones, urine, by test strip Negative Negati ve bilirubin, urine Negative Negative urobilinogen, urine, semiquantitative (dipstick) 0.2 Normal leukocyte [...] gravity, urine >=1.030 1.000-1.030 pH, urine, semiquantitative 5.5 5.0-8.5 urobilinogen, urine, semiquantitative (dipstick) 0.2 Normal leukocyte esterase, urine, by dipstick Negative Negative nitrite, urine, semiquantitative Negative Neg ative urine color Yellow Colorless;Lightyellow;St raw;Yellow appearance, urine Clear Clear specific gravity, urine 1.025 1.000-1.030 pH, urine, semiquantitative 5.5 5.0-8.5 [facility] W/MICRO, AUTO - Chemistry protein, total [...] Negative Encounters Code Encounter Date Provider Facility CPT-85071 Level 3 Est. Patient 16:40:54 CDT Jose Zhong MD [facility] CPT-62179 Level 2 Est. Patient 13:01:13 CDT Steve [facility] CPT-98527 Level 3 Est. Patient 11:55:30 VICE PRESIDENT OF HUMAN RESOURCES Jono black DO [facility] CPT-59480 Level 3 Est. Patient 09:52:36 VICE PRESIDENT OF HUMAN RESOURCES Steve PRIMARY EDUCATION PROFESSOR [facility] CPT-19440 Level 3 Est. Patient 16:25:33 VICE PRESIDENT OF HUMAN RESOURCES Rich Rosales MD [facility] CPT-23106 Level 3 Est. Patient 20:33:55 CDT Arie mcqueen MD [facility] CPT-75320 Level 3 Est. Patient 14:18:20 CDT Rich Rosales MD [facility] CPT-75256 Level 4 Est. Patient 09:34:31 CDT Arie mcqueen MD [facility] CPT-52354 Level 3 Est. Patient 09:08:55 VICE PRESIDENT OF HUMAN RESOURCES Liliana vincent MD PhD [facility]-04400 Level 3 Est. Patient 16:44:07 VICE PRESIDENT OF HUMAN RESOURCES Arie mcqueen MD [facility] CPT-26515 Level 3 Est. Patient 10:44:27 CDT Arie mcqueen MD [facility] CPT-47948 Level 3 Est. Patient 08:55:41 CDT Jose Zhong MD [facility] CPT-75192 Level 3 Est. Patient 18:37:31 CDT Liliana vincent MD PhD [facility] CPT-70779 Level 3 Est. Patient 14:28:23 CDT Abelardo HERNANDEZ [facility] CPT-30426 Level 3 Est. Patient 15:18:13 VICE PRESIDENT OF HUMAN RESOURCES Arie mcqueen MD [facility] CPT-10068 Level 3 Est. Patient 10:11:29 VICE PRESIDENT OF HUMAN RESOURCES Arie mcqueen MD [facility] CPT-37965 Level 3 Est. Patient 10:55:57 VICE PRESIDENT OF HUMAN RESOURCES Jono black DO [facility] CPT-86951 Level 3 Est. Patient 17:29:05 CDT Arie mcqueen MD [facility] Procedures Code Procedure Name Date Entry Date Standard Desc ription CPT-02846 Abd compl w upright 09:07:26 VICE PRESIDENT [employer] CPT-24358 Ear Wash 16:12:47 VICE PRESIDENT OF H[employer]OURCES CPT-OV Office Visit 11:12:01 CDT CPT-OV Office Visit 15:30:23 CDT CPT-63998 Sono pelvis non OB uterus ovaries cervix 15:50:44 CDT CPT-76043 Hand comp min 3V 16:42:32 CDT CPT-00248 Abd compl w upright 12:17:01 CDT CPT-39845 Nexplanon Placement 15:07:39 [employer]ICE [employer]IDENT [employer] CPT-90294 Removal of IUD 15:07:39 VICE PRESIDENT [employer] H[employer]OURCES CPT-55693 TB Tubersol 12:09:32 CDT CPT-04814 TB Tubersol 13:55:43 CDT
--- OUTSIDE RECORDS SUMMARY | 2020-03-03 07:20 | XMS REPORT | Clinical Summary ---
Author Author Admin, Diamante Marcelo Organization [facility] Address Unknown Phone Unavailable Allergies, Adverse Reactions, [...] cute pharyngitis Nausea 787.02 Active Brii Larson EXPLOSIVE ORDNANCE MANAGER Nausea alone URI 465.9 Active Jono Gagnon DO Acu te upper respiratory infections of unspecified site Allergic rhinitis 477.9 Active Brii Christianson PRN Allergic rhinitis, cause unspecified Abdominal pain, right lower quadrant 789.03 Active Jose Zhong MD Abdominal pain, right lower quadrant Urinary frequency 788.41 Inactive Roseann Crawford Urinary frequency Urinary frequency 788.41 Active 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, 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 Urinary frequency Sinusitis - acute 461.9 Active Brii Christianson PRN Acute sinusitis, unspecified Anxiety with depression 300.4 Active Glenn Larson EXPLOSIVE ORDNANCE MANAGER Dysthymic disorder URI 465.9 Active Jono [...] tab by mouth twice daily 2 TRIMETHOPRIM-SULFAMETHOXAZOLE 33423808585 Active Roseann Crawford Active NEXPLANON IMPL right arm subcutaneously ETONOGE STREL IMPL 75601212212 No Longer Active Brii Larson APRN Active TUSSIONEX PENNKINETIC ER 10-8 MG/5ML LQCR 5ml po q12hr PRN Cough HYDROCOD POLST-CHLORPHEN POLST 16776868887 No Longer Active Brii Larson APRN Active CETIRIZINE HCL 10 MG ORAL TABS 1 po qd PRN Allergies 2 CETIRIZINE HCL 43480552924 No Longer Active Brii Larson APRN Ac tive PREDNISONE 20 MG TAB 2 tabs daily for 3 days, 1 t ab daily for 3 days, 1/2 tab daily for 2 days PREDNISONE 64897696247 No Longer Active Arie Casper MD Active LOMOTIL 2.5-0.025 MG TAB 1 tab po four times a day as needed for diarrhea DIPHENOXYLATE-ATROPINE 48237199639 No Longer Active D freddy Casper MD Active ZOLOFT 50 MG TAB 1 tablet by mouth daily SERTRA LINE HCL 56563625876 No Longer Active Arie Casper MD Active NAPROXEN 500 MG TAB Take 1 tab BID NAPROXEN 332 01499343 No Longer Active Arie Casper MD Active CEFDINIR 300 MG CAPS 1 po BID x 10 days CEFDINI R 61377173086 No Longer Active Brii Larson APRN Active PREDNISONE 20 MG TAB 1 tablet daily for airway inflammation 2015 PREDNISONE 10165513080 No Longer Active Brii Larson APRN Active CEFDINIR 300 MG CAPS 1 po BID x 10 days CEFDINI R 07138470684 No Longer Active Jono Gagnon DO Active FLONASE 50 MCG/ACT SUSP 1 spray each nostril twice d aily for allergies and runny nose until gone FLUTICASONE PROPIONATE No Longe r Active Jono Gagnon DO Active ALPRAZOLAM 0.25 MG TAB 1 tablet by mouth every 8 hours as ne eded for stress ALPRAZOLAM 26150812783 No Longer Active Jono Gagnon DO Active ZITHROMAX Z-EMIL 250 MG TABS 2 today, then 1 daily for 4 days 201 03/31/18 AZITHROMYCIN 83634312776 No Longer Active Arie Casper MD Active PROTONIX 40 MG ORAL TBEC 1 po q a.m. PANTOPRAZO LE SODIUM 24965556027 Active Arie Casper MD Active PREDNISONE 20 MG TAB 2 tabs daily for 3 days, 1 t ab daily for 3 days, 1/2 tab daily for 2 days PREDNISONE 06409841268 No Longer Active Brii Larson APRN Active PREDNISONE 20 MG TAB 1 tablet twice daily for 2 d ays, then 1 tablet once daily for 2 days PREDNISONE 55679012155 No Longer Active Brii Larson APRN Active PROMETHAZINE HCL 12.5 MG TABS 1 tablet by mouth every 6 hours as needed for nausea/vomiting PROMETHAZINE HCL 36890471531 No Longe r Active Jono Gagnon DO Active CITRATE OF MAGNESIA ORAL SOLN 1 bottle today for constipation 20 07/10/15 MAGNESIUM CITRATE 79419065534 No Longer Active Jono Gagnon DO Active ZOFRAN 4 MG ORAL TABS 1 TAB PO Q 6 HRS PRN NAUSEA 2014 ONDANSETRON HCL 66510856434 No Longer Active Brii Larson APRN A ctive LOMOTIL 2.5-0.025 MG TAB 1 to 2 four times a day as needed f or diarrhea DIPHENOXYLATE-ATROPINE 96047711558 No Longer Active January Larson APRN Active AMOXICILLIN 500 MG TABS 2 tabs twice a day for 10 days AMOXICILLIN 33857451949 No Longer Active Brii Larson APRN Acti ve CYCLOBENZAPRINE HCL 10 MG TABS 1/2 - 1 tablet by mouth three times daily as needed for muscle spasm/pain CYCLOBENZAPRINE HCL 68728151256 No Longer Active Arie Casper MD Active LOMOTIL 2.5-0.025 MG TABS 1 to 2 four times a day as needed for diarrhea DIPHENOXYLATE-ATROPINE 78558564006 No Longer Active Fozia Casper MD Active MACROBID 100 MG CAP 1 cap by mouth twice daily NITROFURANTOIN MONOHYD MACRO 35958441663 No Longer Active Arie Casper MD Active ZYRTEC ALLERGY 10 MG CAPS 1 po qd CETIRIZINE HCL 72592848432 No Longer Active Arie Casper MD Active AZITHROMYCIN 250 MG TABS 2 po qd x 1 day, then 1 po qd x 4 days AZITHROMYCIN 42023069901 No Longer Active Jillina Florina EXPLOSIVE ORDNANCE MANAGER Active PREDNISONE 20 MG TAB 2 tabs daily for 3 days, 1 t ab daily for 3 days, 1/2 tab daily for 2 days PREDNISONE 67724402919 No Longer Active Jillina Fradeepl EXPLOSIVE ORDNANCE MANAGER Active PROMETHAZINE HCL 25 MG TABS 1 four times a day as needed for vomiting PROMETHAZINE HCL 12521945681 No Longer Active Myrna Roberto MD Active BACTRIM DS 800-160 MG TABS 1 twice a day SULFAMETHOXAZOLE-TRIMETHOPRIM 57762178820 No Longer Active Myrna Roberto MD Active VICKS DAYQUIL SEVERE COLD/FLU TABS 1 tab every 6 hours prn 12/10 [id number] TABS 11070787256 No Longer Active Myrna leigh MD Active GUAIFENESIN-CODEINE 100-10 MG/5ML ORAL SYRP 2 tsp every 6 hours prn GUAIFENESIN-CODEINE 05415028315 No Longer Active Myrna Roberto MD Active NAPROXEN 500 MG TAB one tab PO BID NAPROXEN 332 90431759 No Longer Active Myrna Roberto MD Active AUGMENTIN 875-125 MG TAB 1 tab by mouth twice daily with food 20 08/12/16 AMOXICILLIN-POT CLAVULANATE 25899898694 No Longer Active Liliana Estrada MD PhD Active AMOXICILLIN 500 MG CAP 1 tab by mouth 3 times daily 08/12/16 AMOXICILLIN 38712209847 No Longer Active Liliana Estrada MD PhD Acti ve TESSALON PERLES 100 MG CAP 1 tablet by mouth 3 times daily 11/01 BENZONATATE 13424961514 No Longer Active Liliana Estrada MD PhD Active FLAGYL 500 MG TAB 1 tablet by mouth two times daily 07/11/29 METRONIDAZOLE 49660602357 No Longer Active Nilam Weber Active ZITHROMAX 250 MG TAB 2 po today, then 1 po q days 2-5 AZITHROMYCIN 40248506394 No Longer Active Arie Casper MD Acti ve VITAMINS 0.8 MG TABS take 1 tab po qday 08/08 [id number] 64331318570 No Longer Active Arie Casper MD Active IBUPROFEN 800 MG TABS take one po Q 8 hours IBU PROFEN 92975731572 No Longer Active Arie Casper MD Active [facility] TUSSIN COUGH/COLD CF 5-10-100 MG/5ML LIQD 2 teaspoons ev eliud 4 hours [id number] 68573305802 No Longer Active Blaine Casper MD Active COMTREX COLD/COUGH DAY/NITE MS 5-2-10-325 MG MISC 2 caps deja ry 4 hours [id number] 41459712511 No Longer Active Da aleksandra Casper MD Active CHLORASEPTIC MAX SORE THROAT 15-10 MG LOZG 1 every 2 hours prn 2 BENZOCAINE-MENTHOL 64242189803 No Longer Active Arie Marcelo Active PREDNISONE 20 MG TAB 2 tabs daily for 3 days, 1 t ab daily for 3 days, 1/2 tab daily for 2 days PREDNISONE 19306623321 No Longer Active Jose Zhong MD Active AZITHROMYCIN 250 MG TABS 2 po qd x 1 day, then 1 po qd x 4 days AZITHROMYCIN 69594049637 No Longer Active Jose Zhong MD Active ZOFRAN ODT 4 MG TBDP 1 po q6hr PRN Nausea ONDAN SETRON 81552380647 No Longer Active Rich Rosales MD Active ZOFRAN 4 MG TABS 1 tablet every 4 hours ONDANSE JERRELL HCL 39301117701 No Longer Active Rich Rosales MD Active MUCINEX 600 MG [id number] Take 1-2 tablets every 12 hours GUAIFENESIN 06524066440 No Longer Active Rich Rosales MD Activ e BACTRIM 400-80 MG TABS take one po BID SULFAMETHOXAZOLE-TRIMETHOPRIM 63193319038 No Longer Active Abelardo HERNANDEZ Active AZITHROMYCIN 500 MG TABS 1 PO q day x 6 days AZ ITHROMYCIN 70183745759 No Longer Active Tin HERNANDEZ Active ZITHROMAX 250 MG TAB 2 po today, then 1 po q days 2-5 AZITHROMYCIN 51837506827 No Longer Active Arei Casper MD Acti ve ZITHROMAX 250 MG TAB 2 po today, then 1 po q days 2-5 AZITHROMYCIN 80310814003 No Longer Active Arie Casper MD Acti ve AMOXICILLIN 500 MG CAP 1 tab by mouth 3 times daily 20 09/23/20 AMOXICILLIN 75962329111 No Longer Active Arie Casper MD Acti ve BACTRIM DS 800-160 MG TAB 1 tab by mouth twice daily 2 TRIMETHOPRIM-SULFAMETHOXAZOLE 07381044605 No Longer Active Arie Casper MD Active AMOXICILLIN 500 MG TABS take 1 tab po TID AMOXI CILLIN 88067392654 No Longer Active Arie Casper MD Active BACTRIM DS 800-160 MG TAB 1 tab by mouth twice daily 2 BACTRIM DS 800-160 MG TAB 19821226 TRIMETHOPRIM-SULFAMETHOXAZOLE Inac tive MUCINEX 600 MG [id number] Take 1-2 tablets every 12 hours MUCINEX 600 MG [id number] GUAIFENESIN Inactive ZOFRAN 4 MG TABS 1 tablet every 4 hours ZOFRAN 4 MG TABS 202381 ONDANSETRON HCL Inactive ZOFRAN ODT 4 MG TBDP 1 po q6hr PRN Nausea ZOFRAN ODT 4 MG TBDP 883081 ONDANSETRON Inactive CHLORASEPTIC MAX SORE THROAT 15-10 MG LOZG 1 every 2 hours prn 2 CHLORASEPTIC MAX SORE THROAT 15-10 MG LOZG BENZO ARINA-MENTHOL Inactive COMTREX COLD/COUGH DAY/NITE MS 5-2-10-325 MG MISC 2 caps deja ry 4 hours COMTREX COLD/COUGH DAY/NITE MS 5-2-10-325 MG MIS C [id number] Inactive [facility] TUSSIN COUGH/COLD CF 5-10-100 MG/5ML LIQD 2 teaspoons ev eliud 4 hours [facility] TUSSIN COUGH/COLD CF 5-10-100 MG/5ML LIQD [id number] Inactive IBUPROFEN 800 MG TABS take one po Q 8 hours IBUPROFEN 800 MG TABS IBUPROFEN Inactive VITAMINS 0.8 MG TABS take 1 tab po qday 08/08 VITAMINS 0.8 MG TABS [id number] Inactive TESSALON PERLES 100 MG CAP 1 tablet by mouth 3 times daily 11/01 TESSALON PERLES 100 MG CAP 679675 BENZONATATE Inact zaid AMOXICILLIN 500 MG CAP 1 tab by mouth 3 times daily 20 08/12/16 AMOXICILLIN 500 MG CAP 508083 AMOXICILLIN Inactive GUAIFENESIN-CODEINE 100-10 MG/5ML ORAL SYRP 2 tsp every 6 hours prn GUAIFENESIN-CODEINE 100-10 MG/5ML ORAL SYRP 175284 GUAIFENESIN-CODEINE Inactive VICKS DAYQUIL SEVERE COLD/FLU TABS 1 tab every 6 hours prn 12/10 VICKS DAYQUIL SEVERE COLD/FLU TABS PHENYLEPHRINE -DM-GG-APAP TABS Inactive BACTRIM DS 800-160 MG TABS 1 twice a day BACTRIM DS 800- 160 MG TABS 249213 SULFAMETHOXAZOLE-TRIMETHOPRIM Inactive PROMETHAZINE HCL 25 MG TABS 1 four times a day as needed for vomiting PROMETHAZINE HCL 25 MG TABS 773385 PROMETHAZINE HCL Inactive ZYRTEC ALLERGY 10 MG CAPS 1 po qd ZY RTEC ALLERGY 10 MG CAPS CETIRIZINE HCL Inactive MACROBID 100 MG CAP 1 cap by mouth twice daily MACROBID 100 MG CAP 6620622 NITROFURANTOIN MONOHYD MACRO Inactive LOMOTIL 2.5-0.025 MG TABS 1 to 2 four times a day as needed for diarrhea LOMOTIL 2.5-0.025 MG TABS 2923225 DIPHENOXYLATE-A TROPINE Inactive CYCLOBENZAPRINE HCL 10 MG TABS 1/2 - 1 tablet by mouth three times daily as needed for muscle spasm/pain CYCLOBENZAP RINE HCL 10 MG TABS 257689 CYCLOBENZAPRINE HCL Inactive AMOXICILLIN 500 MG TABS 2 tabs twice a day for 10 days AMOXICILLIN 500 MG TABS 252236 AMOXICILLIN Inactive LOMOTIL 2.5-0.025 MG TAB 1 to 2 four times a day as needed f or diarrhea LOMOTIL 2.5-0.025 MG TAB 5942163 DIPHENOXYLATE-AT ROPINE Inactive ZOFRAN 4 MG ORAL TABS 1 TAB PO Q 6 HRS PRN NAUSEA 2014 ZOFRAN 4 MG ORAL TABS 863392 ONDANSETRON HCL Inactive CITRATE OF MAGNESIA ORAL SOLN 1 bottle today for constipation 20 07/10/15 CITRATE OF MAGNESIA ORAL SOLN 8419114 MAGNESIUM CITRATE Inactive PROMETHAZINE HCL 12.5 MG TABS 1 tablet by mouth every 6 hours as needed for nausea/vomiting PROMETHAZINE HCL 12.5 MG TABS 777095 PROMETHAZINE HCL Inactive PREDNISONE 20 MG TAB 1 tablet twice daily for 2 d ays, then 1 tablet once daily for 2 days PREDNISONE 20 MG TAB 269524 PREDNISONE Inac tive ALPRAZOLAM 0.25 MG TAB 1 tablet by mouth every 8 hours as ne eded for stress ALPRAZOLAM 0.25 MG TAB 139306 ALPRAZOLAM Inact zaid FLONASE 50 MCG/ACT SUSP 1 spray each nostril twice d aily for allergies and runny nose until gone FLONASE 50 MCG/ACT SUSP 8552286 FLUTICASONE PROPIONATE Inactive PREDNISONE 20 MG TAB 1 tablet daily for airway inflammation 2015 PREDNISONE 20 MG TAB 381105 PREDNISONE Inactive NAPROXEN 500 MG TAB Take 1 tab BID NAPROXEN 500 MG TAB 130582 NAPROXEN Inactive ZOLOFT 50 MG TAB 1 tablet by mouth daily ZOLOFT 50 MG TAB 640231 SERTRALINE HCL Inactive LOMOTIL 2.5-0.025 MG TAB 1 tab po four times a day as needed for diarrhea LOMOTIL 2.5-0.025 MG TAB 3341343 DIPHENOXYLATE-AT ROPINE Inactive CETIRIZINE HCL 10 MG ORAL TABS 1 po qd PRN Allergies 2 CETIRIZINE HCL 10 MG ORAL TABS 4879517 CETIRIZINE HCL Inactive TUSSIONEX PENNKINETIC ER 10-8 MG/5ML LQCR 5ml po q12hr PRN Cough TUSSIONEX PENNKINETIC ER 10-8 MG/5ML LQCR HYDROCOD POLST-CHLORPHEN POLST Inactive NEXPLANON IMPL right arm subcutaneously NEXPLANO N IMPL ETONOGESTREL IMPL Inactive AMOXICILLIN 500 MG TABS take 1 tab po TID AMOXICILLIN 500 MG TABS 964323 AMOXICILLIN Inactive AMOXICILLIN 500 MG CAP 1 tab by mouth 3 times daily 09/23/20 AMOXICILLIN 500 MG CAP 781288 AMOXICILLIN Inactive ZITHROMAX 250 MG TAB 2 po today, then 1 po q days 2-5 ZITHROMAX 250 MG TAB 370788 AZITHROMYCIN Inactive ZITHROMAX 250 MG TAB 2 po today, then 1 po q days 2-5 ZITHROMAX 250 MG TAB 904259 AZITHROMYCIN Inactive AZITHROMYCIN 500 MG TABS 1 PO q day x 6 days 3 AZITHROMYCIN 500 MG TABS 2257932 AZITHROMYCIN Inactive BACTRIM 400-80 MG TABS take one po BID BA CTRIM 400-80 MG TABS 789000 SULFAMETHOXAZOLE-TRIMETHOPRIM Inactive AZITHROMYCIN 250 MG TABS 2 po qd x 1 day, then 1 po qd x 4 days AZITHROMYCIN 250 MG TABS 928991 AZITHROMYCIN Inactiv e PREDNISONE 20 MG TAB 2 tabs daily for 3 days, 1 t ab daily for 3 days, 1/2 tab daily for 2 days PREDNISONE 20 MG TAB 688240 PREDNISON E Inactive ZITHROMAX 250 MG TAB 2 po today, then 1 po q days 2-5 ZITHROMAX 250 MG TAB 446766 AZITHROMYCIN Inactive FLAGYL 500 MG TAB 1 tablet by mouth two times daily 07/11/29 FLAGYL 500 MG TAB 492891 METRONIDAZOLE Inactive AUGMENTIN 875-125 MG TAB 1 tab by mouth twice daily with food 20 08/12/16 AUGMENTIN 875-125 MG TAB 236187 AMOXICILLIN-POT CLAVULA ANGELO Inactive NAPROXEN 500 MG TAB one tab PO BID NAPROXEN 500 MG TAB 001116 NAPROXEN Inactive PREDNISONE 20 MG TAB 2 tabs daily for 3 days, 1 t ab daily for 3 days, 1/2 tab daily for 2 days PREDNISONE 20 MG TAB 706233 PREDNISON E Inactive AZITHROMYCIN 250 MG TABS 2 po qd x 1 day, then 1 po qd x 4 days AZITHROMYCIN 250 MG TABS 518424 AZITHROMYCIN Inactiv e PREDNISONE 20 MG TAB 2 tabs daily for 3 days, 1 t ab daily for 3 days, 1/2 tab daily for 2 days PREDNISONE 20 MG TAB 089141 PREDNISON E Inactive ZITHROMAX Z-EMIL 250 MG TABS 2 today, then 1 daily for 4 days 201 03/31/18 ZITHROMAX Z-EMIL 250 MG TABS 517298 AZITHROMYCIN Inac tive CEFDINIR 300 MG CAPS [...] for 2 days PREDNISONE 20 MG TAB 839624 PREDNISON E Inactive Advance Directives Directive Description [...] Value Unit Range Description Lab Report: Chlamydia/GC APTIMA/35523 - Lab chlamydia DNA probe NOT DETECTED NOT DETECTED Lab Report: Chlamydia/GC APTIMA/38097 - Microbiology Neisseria gonorrhoeae DNA probe NOT [...] 5.0-8.5 Encounters Code Encounter Date Provider Facility CPT-08464 Level 3 Est. Patient 15:40:28 CDT Steve EXPLOSIVE ORDNANCE MANAGER [facility] CPT-57428 Level 3 Est. Patient 16:40:36 CDT Arie mcqueen MD [facility] CPT-99776 Level 4 Est. Patient 15:29:22 STEAM BRUSH OPERATOR Arie mcqueen MD [facility] CPT-43733 Level 3 Est. Patient 15:18:16 STEAM BRUSH OPERATOR Jono black DO [facility] CPT-54628 Level 4 Est. Patient 12:08:40 STEAM BRUSH OPERATOR Steve [facility][note 3] CPT-97697 Level 3 Est. Patient 09:24:42 CDT Steve EXPLOSIVE ORDNANCE MANAGER [facility] CPT-62045 Level 3 Est. Patient 09:12:56 CDT Arie mcqueen MD [facility] CPT-29261 Level 3 Est. Patient 16:40:54 CDT Jose Zhong MD [facility] CPT-42582 Level 2 Est. Patient 13:01:13 CDT Steve [facility][note 3] CPT-35791 Level 3 Est. Patient 11:55:30 STEAM BRUSH OPERATOR Jono black [facility] CPT-68068 Level 3 Est. Patient 09:52:36 STEAM BRUSH OPERATOR Steve [facility]ARE[facility] CPT-76633 Level 3 Est. Patient 16:25:33 STEAM BRUSH OPERATOR Rich Rosales MD [facility] CPT-69909 Level 3 Est. Patient 20:33:55 CDT Arie mcqueen MD [facility] CPT-61399 Level 3 Est. Patient 14:18:20 CDT Rich Rosales MD [facility] CPT-96899 Level 4 Est. Patient 09:34:31 CDT Arie mcqueen MD [facility]-23912 Level 3 Est. Patient 09:08:55 STEAM BRUSH OPERATOR Liliana vincent MD PhD [facility] CPT-02274 Level 3 Est. Patient 16:44:07 STEAM BRUSH OPERATOR Arie mcqueen MD [facility] CPT-91595 Level 3 Est. Patient 10:44:27 CDT Arie mcqueen MD [facility]-39983 Level 3 Est. Patient 08:55:41 CDT Jose Zhong MD [facility] CPT-80601 Level 3 Est. Patient 18:37:31 CDT Liliana vincent MD PhD [facility]-33793 Level 3 Est. Patient 14:28:23 CDT Abelardo HERNANDEZ [facility] CPT-49657 Level 3 Est. Patient 15:18:13 STEAM BRUSH OPERATOR Arie mcqueen MD [facility]-39741 Level 3 Est. Patient 10:11:29 STEAM BRUSH OPERATOR Arie mcqueen MD [facility] CPT-48760 Level 3 Est. Patient 10:55:57 STEAM BRUSH OPERATOR Jono black DO [facility] CPT-18791 Level 3 Est. Patient 17:29:05 CDT Arie mcqueen MD [facility] Procedures Code Procedure Name Date Entry Date Standard Desc ription CPT-21199 Nexplanon Removal 15:40:28 CDT CPT-05349 Sono transvag pelvis non OB uterus ovari es cervix - XRAY USE ONLY 08:58:14 STEAM BRUSH OPERATOR CPT-38599 UA w micro - LAB USE ONLY 16:04:56 STEAM BRUSH OPERATOR 2015 CPT-64996 Wet Prep/GEN - LAB USE ONLY 16:04:56 STEAM BRUSH OPERATOR 20 08/10/29 CPT-73089 First Vx - Ix admin via ID I M or jet injects without counseling by physician 16:57:10 CDT CPT-23931 Fluzone Preservative Free Intramuscular Suspension 16:57:10 CDT CPT-J0696 Rocephin 1000 mg (Ceftriaxone) 11:49:23 CDT CPT-J1040 Depo Medrol 80 mg (Methyl Prednisolone A cetate) 11:49:23 CDT CPT-J1100 Decadron 8mg (Dexamethasone) 11:49:23 CDT 2 CPT-04616 Abx/Therapy Injection 11:49:23 CDT CPT-09586 Abx/Therapy Injection 11:49:23 CDT CPT-64429 Abd compl w upright 09:07:26 STEAM BRUSH OPERATOR CPT-78094 Ear Wash 16:12:47 STEAM BRUSH OPERATOR CPT-OV Office Visit 11:12:01 CDT CPT-OV Office Visit 15:30:23 CDT CPT-92885 Sono pelvis non OB uterus ovaries cervix 15:50:44 CDT CPT-78980 Hand comp min 3V 16:42:32 CDT CPT-67950 Abd compl w upright 12:17:01 CDT CPT-44345 Nexplanon Placement 15:07:39 STEAM BRUSH OPERATOR CPT-81160 Removal of IUD 15:07:39 STEAM BRUSH OPERATOR CPT-34190 TB Tubersol 12:09:32 CDT CPT-05835 TB Tubersol 13:55:43 CDT
--- OUTSIDE RECORDS SUMMARY | 2020-03-03 07:21 | XMS REPORT | Clinical Summary ---
Author Author Admin, Diamante Marcelo Organization [employer] Address Unknown Phone Unavailable Allergies, Adverse Reactions, [...] Impacted cerumen Sore throat 462 Active Nilam Gus A cute pharyngitis Nausea 787.02 Active Brii Larson AIRLINE DISPATCHER Nausea alone URI 465.9 Active Jono Gagnon [...] Anxiety with depression 300.4 Active Glenn Larson AIRLINE DISPATCHER Dysthymic disorder BREAST CANCER ICD-V16.3 Inactive Jose Marcelo FH [...] Generic Name NDC Status Provider Patient Instruction ZOLOFT 50 MG TAB 1 tablet by mouth daily SERTRA LINE HCL 66412317784 Active Brii Larson APRN Active LOMOTIL 2.5-0.025 MG TAB 1 tab po four times a day as needed for diarrhea DIPHENOXYLATE-ATROPINE 23567998290 Active Brii Larson APRN Active ZITHROMAX Z-EMIL 250 MG TABS 2 today, then 1 daily for 4 days 201 03/31/18 AZITHROMYCIN 48133966227 No Longer Active Arie Casper MD Active ALPRAZOLAM 0.25 MG TAB 1 tablet by mouth every 8 hours as ne eded for stress ALPRAZOLAM 58564272643 Active Brii Larson APRN Active PROTONIX 40 MG ORAL TBEC 1 po q a.m. PANTOPRAZO LE SODIUM 93677590745 Active Carline Ochoa RPT,RMA Active PREDNISONE 20 MG TAB 2 tabs daily for 3 days, 1 t ab daily for 3 days, /2 tab daily for 2 days PREDNISONE 62515353313 No Longer Active Brii Larson APRN Active PREDNISONE 20 MG TAB 1 tablet twice daily for 2 d ays, then 1 tablet once daily for 2 days PREDNISONE 60028024323 No Longer Active Brii Larson APRN Active FLONASE 50 MCG/ACT SUSP 1 spray each nostril twice d aily for allergies and runny nose until gone FLUTICASONE PROPIONATE Active Jono Gagnon DO Active PROMETHAZINE HCL 12.5 MG TABS 1 tablet by mouth every 6 hours as needed for nausea/vomiting PROMETHAZINE HCL 66735148737 No Longe r Active Jono Gagnon DO Active CITRATE OF MAGNESIA ORAL SOLN 1 bottle today for constipation 20 07/10/15 MAGNESIUM CITRATE 20549488141 No Longer Active Jono Gagnon DO Active ZOFRAN 4 MG ORAL TABS 1 TAB PO Q 6 HRS PRN NAUSEA 2014 ONDANSETRON HCL 29873526048 No Longer Active Brii Larson APRN A ctive LOMOTIL 2.5-0.025 MG TAB 1 to 2 four times a day as needed f or diarrhea DIPHENOXYLATE-ATROPINE 42532663349 No Longer Active January Larson APRN Active AMOXICILLIN 500 MG TABS 2 tabs twice a day for 10 days AMOXICILLIN 08413840558 No Longer Active Brii Larson APRN Acti ve NEXPLANON IMPL ETONOGESTREL IMPL 52567230718 Active Rich Rosales MD Active CYCLOBENZAPRINE HCL 10 MG TABS 1/2 - 1 tablet by mouth three times daily as needed for muscle spasm/pain CYCLOBENZAPRINE HCL 86305795761 No Longer Active Arie Casper MD Active LOMOTIL 2.5-0.025 MG TABS 1 to 2 four times a day as needed for diarrhea DIPHENOXYLATE-ATROPINE 04217522385 No Longer Active Mason Casper MD Active MACROBID 100 MG CAP 1 cap by mouth twice daily NITROFURANTOIN MONOHYD MACRO 63931510491 No Longer Active Arie Casper MD Active ZYRTEC ALLERGY 10 MG CAPS 1 po qd CETIRIZINE HCL 03128501534 No Longer Active Arie Casper MD Active AZITHROMYCIN 250 MG TABS 2 po qd x 1 day, then 1 po qd x 4 days AZITHROMYCIN 89544490516 No Longer Active Jillina Frazell AIRLINE DISPATCHER Active PREDNISONE 20 MG TAB 2 tabs daily for 3 days, 1 t ab daily for 3 days, 1/2 tab daily for 2 days PREDNISONE 92113008815 No Longer Active Jillina Frazell AIRLINE DISPATCHER Active PROMETHAZINE HCL 25 MG TABS 1 four times a day as needed for vomiting PROMETHAZINE HCL 31561290465 No Longer Active Myrna Roberto MD Active BACTRIM DS 800-160 MG TABS 1 twice a day SULFAMETHOXAZOLE-TRIMETHOPRIM 85354083352 No Longer Active Myrna Roberto MD Active VICKS DAYQUIL SEVERE COLD/FLU TABS 1 tab every 6 hours prn 12/10 [id number] TABS 73109277347 No Longer Active Myrna leigh MD Active GUAIFENESIN-CODEINE 100-10 MG/5ML ORAL SYRP 2 tsp every 6 hours prn GUAIFENESIN-CODEINE 12820227743 No Longer Active Myrna Roberto MD Active NAPROXEN 500 MG TAB one tab PO BID NAPROXEN 332 05950186 No Longer Active Myrna Roberto MD Active AUGMENTIN 875-125 MG TAB 1 tab by mouth twice daily with food 08/12/16 AMOXICILLIN-POT CLAVULANATE 93489876910 No Longer Active Liliana Estrada MD [facility] Active AMOXICILLIN 500 MG CAP 1 tab by mouth 3 times daily 08/12/16 AMOXICILLIN 73090765144 No Longer Active Liliana Estrada MD PhD Acti ve TESSALON PERLES 100 MG CAP 1 tablet by mouth 3 times daily 11/01 BENZONATATE 07586170607 No Longer Active Liliana Estrada MD PhD Active FLAGYL 500 MG TAB 1 tablet by mouth two times daily 20 07/11/29 METRONIDAZOLE 62391804184 No Longer Active Nilam Weber Active ZITHROMAX 250 MG TAB 2 po today, then 1 po q days 2-5 AZITHROMYCIN 31692478777 No Longer Active Arie Casper MD Acti ve VITAMINS 0.8 MG TABS take 1 tab po qday 08/08 [id number] 23671649153 No Longer Active Arie Casper MD Active IBUPROFEN 800 MG TABS take one po Q 8 hours IBU PROFEN 39716162814 No Longer Active Arie Casper MD Active [facility] TUSSIN COUGH/COLD CF 5-10-100 MG/5ML LIQD 2 teaspoons ev eliud 4 hours [id number] 69089651442 No Longer Active Blaine Casper MD Active COMTREX COLD/COUGH DAY/NITE MS 5-2-10-325 MG MISC 2 caps deja ry 4 hours [id number] 30019822458 No Longer Active Da vimason Casper MD Active CHLORASEPTIC MAX SORE THROAT 15-10 MG LOZG 1 every 2 hours prn 2 BENZOCAINE-MENTHOL 90336086450 No Longer Active Arie Marcelo Active PREDNISONE 20 MG TAB 2 tabs daily for 3 days, 1 t ab daily for 3 days, 1/2 tab daily for 2 days PREDNISONE 27840362665 No Longer Active Jose Zhong MD Active AZITHROMYCIN 250 MG TABS 2 po qd x 1 day, then 1 po qd x 4 days AZITHROMYCIN 55518240955 No Longer Active Jose Zhong MD Active ZOFRAN ODT 4 MG TBDP 1 po q6hr PRN Nausea ONDAN SETRON 54812729202 No Longer Active Rich Rosales MD Active ZOFRAN 4 MG TABS 1 tablet every 4 hours ONDANSE JERRELL HCL 84867672465 No Longer Active Rich Rosales MD Active MUCINEX 600 MG [id number]-DQI Take 1-2 tablets every 12 hours GUAIFENESIN 59389406331 No Longer Active Rich Rosales MD Activ e BACTRIM 400-80 MG TABS take one po BID SULFAMETHOXAZOLE-TRIMETHOPRIM 11115450752 No Longer Active Abelardo HERNANDEZ Active AZITHROMYCIN 500 MG TABS 1 PO q day x 6 days AZ ITHROMYCIN 62612411459 No Longer Active Tin HERNANDEZ Active ZITHROMAX 250 MG TAB 2 po today, then 1 po q days 2-5 AZITHROMYCIN 27017208278 No Longer Active Arie Casper MD Acti ve ZITHROMAX 250 MG TAB 2 po today, then 1 po q days 2-5 AZITHROMYCIN 17886436835 No Longer Active Arie Casper MD Acti ve AMOXICILLIN 500 MG CAP 1 tab by mouth 3 times daily 20 09/23/20 AMOXICILLIN 65901667586 No Longer Active Arie Casper MD Acti ve BACTRIM DS 800-160 MG TAB 1 tab by mouth twice daily 2 TRIMETHOPRIM-SULFAMETHOXAZOLE 46316330172 No Longer Active Arie Casper MD Active AMOXICILLIN 500 MG TABS take 1 tab po TID AMOXI CILLIN 72011440408 No Longer Active Arie Casper MD Active BACTRIM DS 800-160 MG TAB 1 tab by mouth twice daily 2 BACTRIM DS 800-160 MG TAB 182678 TRIMETHOPRIM-SULFAMETHOXAZOLE Inac tive MUCINEX 600 MG ST33P-CME Take 1-2 tablets every 12 hours MUCINEX 600 MG [id number] GUAIFENESIN Inactive ZOFRAN 4 MG TABS 1 tablet every 4 hours ZOFRAN 4 MG TABS 436904 ONDANSETRON HCL Inactive ZOFRAN ODT 4 MG TBDP 1 po q6hr PRN Nausea ZOFRAN ODT 4 MG TBDP 504776 ONDANSETRON Inactive CHLORASEPTIC MAX SORE THROAT 15-10 MG LOZG 1 every 2 hours prn 2 /04/30 CHLORASEPTIC MAX SORE THROAT 15-10 MG LOZG BENZO ARINA-MENTHOL Inactive COMTREX COLD/COUGH DAY/NITE MS 5-2-10-325 MG MISC 2 caps deja ry 4 hours COMTREX COLD/COUGH DAY/NITE MS 5-2-10-325 MG MIS C [id number] Inactive [facility] TUSSIN COUGH/COLD CF 5-10-100 MG/5ML LIQD 2 teaspoons ev eliud 4 hours [facility] TUSSIN COUGH/COLD CF 5-10-100 MG/5ML LIQD [id number] Inactive IBUPROFEN 800 MG TABS take one po Q 8 hours IBUPROFEN 800 MG TABS 400025 IBUPROFEN Inactive VITAMINS 0.8 MG TABS take 1 tab po qday 08/08 VITAMINS 0.8 MG TABS [id number] Inactive TESSALON PERLES 100 MG CAP 1 tablet by mouth 3 times daily 11/01 TESSALON PERLES 100 MG CAP 406028 BENZONATATE Inact zaid AMOXICILLIN 500 MG CAP 1 tab by mouth 3 times daily 08/12/16 AMOXICILLIN 500 MG CAP 224094 AMOXICILLIN Inactive GUAIFENESIN-CODEINE 100-10 MG/5ML ORAL SYRP 2 tsp every 6 hours prn GUAIFENESIN-CODEINE 100-10 MG/5ML ORAL SYRP 151908 GUAIFENESIN-CODEINE Inactive VICKS DAYQUIL SEVERE COLD/FLU TABS 1 tab every 6 hours prn 12/10 VICKS DAYQUIL SEVERE COLD/FLU TABS PHENYLEPHRINE -DM-GG-APAP TABS Inactive BACTRIM DS 800-160 MG TABS 1 twice a day BACTRIM DS 800- 160 MG TABS 764352 SULFAMETHOXAZOLE-TRIMETHOPRIM Inactive PROMETHAZINE HCL 25 MG TABS 1 four times a day as needed for vomiting PROMETHAZINE HCL 25 MG TABS 290833 PROMETHAZINE HCL Inactive ZYRTEC ALLERGY 10 MG CAPS 1 po qd ZY RTEC ALLERGY 10 MG CAPS CETIRIZINE HCL Inactive MACROBID 100 MG CAP 1 cap by mouth twice daily MACROBID 100 MG CAP 6044024 NITROFURANTOIN MONOHYD MACRO Inactive LOMOTIL 2.5-0.025 MG TABS 1 to 2 four times a day as needed for diarrhea LOMOTIL 2.5-0.025 MG TABS 7010218 DIPHENOXYLATE-A TROPINE Inactive CYCLOBENZAPRINE HCL 10 MG TABS 1/2 - 1 tablet by mouth three times daily as needed for muscle spasm/pain CYCLOBENZAP RINE HCL 10 MG TABS 699712 CYCLOBENZAPRINE HCL Inactive AMOXICILLIN 500 MG TABS 2 tabs twice a day for 10 days AMOXICILLIN 500 MG TABS 989957 AMOXICILLIN Inactive LOMOTIL 2.5-0.025 MG TAB 1 to 2 four times a day as needed f or diarrhea LOMOTIL 2.5-0.025 MG TAB 9190605 DIPHENOXYLATE-AT ROPINE Inactive ZOFRAN 4 MG ORAL TABS 1 TAB PO Q 6 HRS PRN NAUSEA 2014 ZOFRAN 4 MG ORAL TABS 944976 ONDANSETRON HCL Inactive CITRATE OF MAGNESIA ORAL SOLN 1 bottle today for constipation 20 07/10/15 CITRATE OF MAGNESIA ORAL SOLN 1329140 MAGNESIUM CITRATE Inactive PROMETHAZINE HCL 12.5 MG TABS 1 tablet by mouth every 6 hours as needed for nausea/vomiting PROMETHAZINE HCL 12.5 MG TABS 395377 PROMETHAZINE HCL Inactive PREDNISONE 20 MG TAB 1 tablet twice daily for 2 d ays, then 1 tablet once daily for 2 days PREDNISONE 20 MG TAB 462598 PREDNISONE Inac tive AMOXICILLIN 500 MG TABS take 1 tab po TID AMOXICILLIN 500 MG TABS 984580 AMOXICILLIN Inactive AMOXICILLIN 500 MG CAP 1 tab by mouth 3 times daily 09/23/20 AMOXICILLIN 500 MG CAP 563164 AMOXICILLIN Inactive ZITHROMAX 250 MG TAB 2 po today, then 1 po q days 2-5 ZITHROMAX 250 MG TAB 8249144 AZITHROMYCIN Inactive ZITHROMAX 250 MG TAB 2 po today, then 1 po q days 2-5 ZITHROMAX 250 MG TAB 3958038 AZITHROMYCIN Inactive AZITHROMYCIN 500 MG TABS 1 PO q day x 6 days 3 AZITHROMYCIN 500 MG TABS 9234997 AZITHROMYCIN Inactive BACTRIM 400-80 MG TABS take one po BID BA CTRIM 400-80 MG TABS 641555 SULFAMETHOXAZOLE-TRIMETHOPRIM Inactive AZITHROMYCIN 250 MG TABS 2 po qd x 1 day, then 1 po qd x 4 days AZITHROMYCIN 250 MG TABS 1435443 AZITHROMYCIN Inactiv e PREDNISONE 20 MG TAB 2 tabs daily for 3 days, 1 t ab daily for 3 days, 1/2 tab daily for 2 days PREDNISONE 20 MG TAB 511228 PREDNISON E Inactive ZITHROMAX 250 MG TAB 2 po today, then 1 po q days 2-5 ZITHROMAX 250 MG TAB 5897866 AZITHROMYCIN Inactive FLAGYL 500 MG TAB 1 tablet by mouth two times daily 07/11/29 FLAGYL 500 MG TAB 639516 METRONIDAZOLE Inactive AUGMENTIN 875-125 MG TAB 1 tab by mouth twice daily with food 20 08/12/16 AUGMENTIN 875-125 MG TAB 331274 AMOXICILLIN-POT CLAVULA ANGELO Inactive NAPROXEN 500 MG TAB one tab PO BID NAPROXEN 500 MG TAB 573195 NAPROXEN Inactive PREDNISONE 20 MG TAB 2 tabs daily for 3 days, 1 t ab daily for 3 days, 1/2 tab daily for 2 days PREDNISONE 20 MG TAB 158844 PREDNISON E Inactive AZITHROMYCIN 250 MG TABS 2 po qd x 1 day, then 1 po qd x 4 days AZITHROMYCIN 250 MG TABS 3161844 AZITHROMYCIN Inactiv e PREDNISONE 20 MG TAB 2 tabs daily for 3 days, 1 t ab daily for 3 days, 1/2 tab daily for 2 days PREDNISONE 20 MG TAB 945135 PREDNISON E Inactive ZITHROMAX Z-EMIL 250 MG TABS 2 today, then 1 daily for 4 days 201 03/31/18 ZITHROMAX Z-EMIL 250 MG TABS 3616455 AZITHROMYCIN Inac tive Advance Directives Directive Description Start Date PERMISSION [...] Range Description blood pressure, diastolic - 8462-4 70 mm[Hg] [...] - 3141-9 179.5 [lb_av] Weigh t Measured Diagnostic Results Date Name Value Unit Range Description Immunizations: TB Skin Test - Challenge tests PPD results in mm 0 mm Lab Report: CBC W/DIFF - Hematology leukocyte [...] Panel - Chemistry sodium, serum 136 mmol/L 564-920 9360/04/26 carbon dioxide, venous blood 29.9 mmol/L 21.0-32 [...] - Chem istry sodium, serum 139 mmol/L 136-504 3962/12/15 carbon dioxide, venous blood 30.2 mmol/L 21.0-32 [...] rapid strep method Negative Negative Lab Report: UHCG, UADIP W/MICRO, [...] Negative Encounters Code Encounter Date Provider Facility CPT-71244 Level 3 Est. Patient 09:24:42 CDT Steve AIRLINE DISPATCHER [facility] CPT-94772 Level 3 Est. Patient 09:12:56 CDT Arie mcqueen MD [facility] CPT-73608 Level 3 Est. Patient 16:40:54 CDT Jose Zhong MD [facility] CPT-14509 Level 2 Est. Patient 13:01:13 CDT Steve AIRLINE DISPATCHER [facility] CPT-63267 Level 3 Est. Patient 11:55:30 BREAKER OFF Jono black DO [facility] CPT-71377 Level 3 Est. Patient 09:52:36 BREAKER OFF Steve CABRERA [facility] CPT-42977 Level 3 Est. Patient 16:25:33 BREAKER OFF Rich Rosales MD [facility] CPT-60647 Level 3 Est. Patient 20:33:55 CDT Arie mcqueen MD [facility] CPT-50630 Level 3 Est. Patient 14:18:20 CDT Rich Rosales MD [facility] CPT-09574 Level 4 Est. Patient 09:34:31 CDT Arie mcqueen MD [facility]-77999 Level 3 Est. Patient 09:08:55 BREAKER OFF Liliana vincent MD PhD [facility]-32844 Level 3 Est. Patient 16:44:07 BREAKER OFF Arie mcqueen MD [facility]-27004 Level 3 Est. Patient 10:44:27 CDT Arie mcqueen MD [facility] CPT-73898 Level 3 Est. Patient 08:55:41 CDT Jose Zhong MD [facility] CPT-68993 Level 3 Est. Patient 18:37:31 CDT Liliana vincent MD PhD [facility] CPT-64394 Level 3 Est. Patient 14:28:23 CDT Abelardo HERNANDEZ [facility] CPT-58492 Level 3 Est. Patient 15:18:13 BREAKER OFF Arie mcqueen MD [facility] CPT-22978 Level 3 Est. Patient 10:11:29 BREAKER OFF Arie mcqueen MD [facility] CPT-17517 Level 3 Est. Patient 10:55:57 BREAKER OFF Jono black DO [facility] CPT-82879 Level 3 Est. Patient 17:29:05 CDT Arie mcqueen MD [facility] Procedures Code Procedure Name Date Entry Date Standard Desc ription CPT-24300 First Vx - Ix admin via ID I M or jet injects without counseling by physician 16:57:10 CDT CPT-55991 Fluzone Preservative Free Intramuscular Suspension 16:57:10 CDT CPT-J0696 Rocephin 1000 mg (Ceftriaxone) 11:49:23 CDT CPT-J1040 Depo Medrol 80 mg (Methyl Prednisolone A cetate) 11:49:23 CDT CPT-J1100 Decadron 8mg (Dexamethasone) 11:49:23 CDT 2 CPT-01700 Abx/Therapy Injection 11:49:23 CDT CPT-03047 Abx/Therapy Injection 11:49:23 CDT CPT-20779 Abd compl w upright 09:07:26 BREAKER OFF CPT-41190 Ear Wash 16:12:47 BREAKER OFF CPT-OV Office Visit 11:12:01 CDT CPT-OV Office Visit 15:30:23 CDT CPT-62319 Sono pelvis non OB uterus ovaries cervix 15:50:44 CDT CPT-57431 Hand comp min 3V 16:42:32 CDT CPT-33084 Abd compl w upright 12:17:01 CDT CPT-75119 Nexplanon Placement 15:07:39 BREAKER OFF CPT-26929 Removal of IUD 15:07:39 BREAKER OFF CPT-53573 TB Tubersol 12:09:32 CDT CPT-62485 TB Tubersol 13:55:43 CDT
--- OUTSIDE RECORDS SUMMARY | 2020-03-03 07:21 | XMS REPORT | Clinical Summary ---
Author Author Admin, Diamante Marcelo Organization [employer] Address Unknown Phone Unavailable Allergies, Adverse Reactions, [...] MD Acute pharyngitis Gastroenteritis, acute 558.9 Active Rcih abebe MD Other and unspecified noninfectious gastroenteritis [...] cute pharyngitis Nausea 787.02 Active Brii Larson TOOTH POLISHER Nausea alone URI 465.9 Active Jono Gagnon DO Acu te upper respiratory infections of unspecified site Allergic rhinitis 477.9 Active Brii Christianson PRN Allergic rhinitis, cause unspecified Abdominal pain, right lower quadrant 789.03 Active Jose Zhong MD Abdominal pain, right lower quadrant Urinary frequency 788.41 Inactive Roseann Crawford Urinary frequency Urinary frequency 788.41 Active 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, 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 Urinary frequency Sinusitis - acute 461.9 Active Brii Christianson PRN Acute sinusitis, unspecified Anxiety with depression 300.4 Active Glenn Larson TOOTH POLISHER Dysthymic disorder URI 465.9 Active Jono Gagnon DO Acu te upper respiratory infections of unspecified site Vaginal bleeding 623.8 Active Brii MARROQUIN RN Other specified noninflammatory disorders of vagina High risk sexual behavior V69.2 Active Arie Casper MD High-risk sexual behavior GERD 530.81 Active Arie Casper MD Esophageal reflux Encounter for surveillance of implantable subdermal contraceptiv e Active Brii Larson TOOTH POLISHER Vaginal bleeding 623.8 Active Arie Casper MD Other specified noninflammatory disorders of vagina BREAST CANCER ICD-V16.3 Inactive Jose Marcelo COLON [...] Generic Name NDC Status Provider Patient Instruction CHERATUSSIN AC 100-10 MG/5ML ORAL SYRUP 1 tsp by mouth every 4 hours as needed for cough GUAIFENESIN-CODEINE [id number] Active Blaine Casper MD Active ZITHROMAX Z-EMIL 250 MG ORAL TABLET 2 today, then 1 daily for 4 d ays AZITHROMYCIN 07671220785 No Longer Active Arie Casper MD Active PROTONIX 40 MG ORAL TABLET DELAYED RELEASE 1 po q a.m. PANTOPRAZOLE SODIUM 50366547299 No Longer Active Arie Casper MD Active BACTRIM DS 800-160 MG ORAL TABLET 1 tab by mouth twice daily 201 05/02/30 TRIMETHOPRIM-SULFAMETHOXAZOLE 87692472840 No Longer Active R [facility] Ty Active NEXPLANON IMPLANT right arm subcutaneously ETONOGESTREL IMPL 76428364973 No Longer Active Brii Larson APRN Acti ve TUSSIONEX PENNKINETIC ER 10-8 MG/5ML ORAL SUSPENSION E XTENDED RELEASE 5ml po q12hr PRN Cough HYDROCOD POLST-CHLORPHEN POLST 5 9006552068 No Longer Active Brii Larson APRN Active CETIRIZINE HCL 10 MG ORAL TABLET 1 po qd PRN Allergies CETIRIZINE HCL 55932847863 No Longer Active Brii Larson APRN Ac tive PREDNISONE 20 MG ORAL TABLET 2 tabs daily for 3 days, 1 tab daily for 3 days, 1/2 tab daily for 2 days PREDNISONE 09571606364 No Longer Active Arie Casper MD Active LOMOTIL 2.5-0.025 MG ORAL TABLET 1 tab po four times a day as needed for diarrhea DIPHENOXYLATE-ATROPINE 73851110385 No Lo nger Active Arie Casper MD Active ZOLOFT 50 MG ORAL TABLET 1 tablet by mouth daily 12/08 SERTRALINE HCL 22417620938 No Longer Active Arie Casper MD Ac tive NAPROXEN 500 MG ORAL TABLET Take 1 tab BID NAPR OXEN 57769757772 No Longer Active Arie Casper MD Active CEFDINIR 300 MG ORAL CAPSULE 1 po BID x 10 days CEFDINIR 38881796250 No Longer Active Brii Larson APRN Active PREDNISONE 20 MG ORAL TABLET 1 tablet daily for airway inflammat ion PREDNISONE 25855506060 No Longer Active Brii Larson APRN Active CEFDINIR 300 MG ORAL CAPSULE 1 po BID x 10 days CEFDINIR 97981562515 No Longer Active Jono Gagnon DO Active FLONASE 50 MCG/ACT NASAL SUSPENSION 1 spray each nostr il twice daily for allergies and runny nose until gone FLUT ICASONE PROPIONATE 89890743372 No Longer Active Jono Gagnon DO Active ALPRAZOLAM 0.25 MG ORAL TABLET 1 tablet by mouth every 8 hours as needed for stress ALPRAZOLAM 88442125205 No Longer Active Jono Gagnon DO Active ZITHROMAX Z-EMIL 250 MG ORAL TABLET 2 today, then 1 daily for 4 d ays AZITHROMYCIN 20020571502 No Longer Active Arie Casper MD Active PREDNISONE 20 MG ORAL TABLET 2 tabs daily for 3 days, 1 tab daily for 3 days, 1/2 tab daily for 2 days PREDNISONE 84172401941 No Longer Active Brii Larson APRN Active PREDNISONE 20 MG ORAL TABLET 1 tablet twice daily for 2 days, then 1 tablet once daily for 2 days PREDNISONE 90620439394 No Longer Active Brii Larson APRN Active PROMETHAZINE HCL 12.5 MG ORAL TABLET 1 tablet by mouth every 6 hours as needed for nausea/vomiting PROMETHAZINE HCL 95321286894 No L onger Active Jono Gagnon DO Active CITRATE OF MAGNESIA ORAL SOLUTION 1 bottle today for constipatio n MAGNESIUM CITRATE 24613758418 No Longer Active Jono Gagnon DO Active ZOFRAN 4 MG ORAL TABLET 1 TAB PO Q 6 HRS PRN NAUSEA 07/10/15 ONDANSETRON HCL 67326964004 No Longer Active Brii Larson APRN A ctive LOMOTIL 2.5-0.025 MG ORAL TABLET 1 to 2 four times a day as needed for diarrhea DIPHENOXYLATE-ATROPINE 30376530987 No Longer Active January Larson APRN Active AMOXICILLIN 500 MG ORAL TABLET 2 tabs twice a day for 10 days 20 07/09/11 AMOXICILLIN 42812533414 No Longer Active Brii Larson APRN Active CYCLOBENZAPRINE HCL 10 MG ORAL TABLET 1/2 - 1 tablet b y mouth three times daily as needed for muscle spasm/pain CYCLOBENZAPRINE HCL 68313605370 No Longer Active Arie Casper MD Active LOMOTIL 2.5-0.025 MG ORAL TABLET 1 to 2 four times a day as needed for diarrhea DIPHENOXYLATE-ATROPINE 06199322181 No Longer Active Fozia Casper MD Active MACROBID 100 MG ORAL CAPSULE 1 cap by mouth twice daily NITROFURANTOIN MONOHYD MACRO 37079330136 No Longer Active Arie Casper MD Active ZYRTEC ALLERGY 10 MG ORAL CAPSULE 1 po qd CE TIRIZINE HCL 94972393828 No Longer Active Arie Casper MD Active AZITHROMYCIN 250 MG ORAL TABLET 2 po qd x 1 day, then 1 po q d x 4 days AZITHROMYCIN 19315417483 No Longer Active Jillarlen Fra naomi TOOTH POLISHER Active PREDNISONE 20 MG ORAL TABLET 2 tabs daily for 3 days, 1 tab daily for 3 days, 1/2 tab daily for 2 days PREDNISONE 68655164273 No Longer Active Jillina Fradeepl TOOTH POLISHER Active PROMETHAZINE HCL 25 MG ORAL TABLET 1 four times a day as nee ded for vomiting PROMETHAZINE HCL 68564583559 No Longer Active Myrna Roberto MD Active BACTRIM DS 800-160 MG ORAL TABLET 1 twice a day 05/30 SULFAMETHOXAZOLE-TRIMETHOPRIM 74568309321 No Longer Active Myrna Roberto MD Active VICKS DAYQUIL SEVERE COLD/FLU TABLET 1 tab every 6 hours prn 201 02/22/17 [id number] TABS 11235180527 No Longer Active Chris Roberto MD Active GUAIFENESIN-CODEINE 100-10 MG/5ML ORAL SYRUP 2 tsp every 6 hours prn GUAIFENESIN-CODEINE 69415218891 No Longer Active Myrna Roberto MD Active NAPROXEN 500 MG ORAL TABLET one tab PO BID NAPR OXEN 57321979818 No Longer Active Myrna Roberto MD Active AUGMENTIN 875-125 MG ORAL TABLET 1 tab by mouth twice daily with food AMOXICILLIN-POT CLAVULANATE 80599762931 No Longer Act zaid Liliana Estrada MD PhD Active AMOXICILLIN 500 MG ORAL CAPSULE 1 tab by mouth 3 times daily 201 02/21/05 AMOXICILLIN 79505045290 No Longer Active Liliana Estrada MD PhD Active TESSALON PERLES 100 MG ORAL CAPSULE 1 tablet by mouth 3 times da cory BENZONATATE 41614409815 No Longer Active Liliana Estrada MD PhD Active FLAGYL 500 MG ORAL TABLET 1 tablet by mouth two times daily 2014 METRONIDAZOLE 37475523033 No Longer Active Nilam Doran tive ZITHROMAX 250 MG ORAL TABLET 2 po today, then 1 po q days 2-5 20 06/08/16 AZITHROMYCIN 74142773352 No Longer Active Arie Casper MD Active VITAMINS 0.8 MG ORAL TABLET take 1 tab po qday [id number] 13995487002 No Longer Active Arie Casper MD Active IBUPROFEN 800 MG ORAL TABLET take one po Q 8 hours 201 02/01/16 IBUPROFEN 95504570335 No Longer Active Arie Casper MD Acti ve [facility] TUSSIN COUGH/COLD CF 5-10-100 MG/5ML ORAL LIQUID 2 teasp oons every 4 hours [id number] 68312263181 No Longer Active Blaine Casper MD Active COMTREX COLD/COUGH DAY/NITE MS 5-2-10-325 MG ORAL 2 caps deja ry 4 hours [id number] 53489823876 No Longer Active Landon Casper MD Active CHLORASEPTIC MAX SORE THROAT 15-10 MG MOUTH/THROAT LOZENGE 1 every 2 hours prn BENZOCAINE-MENTHOL 58786781044 No Longer Active Arie Casper MD Active PREDNISONE 20 MG ORAL TABLET 2 tabs daily for 3 days, 1 tab daily for 3 days, 1/2 tab daily for 2 days PREDNISONE 07892321480 No Longer Active Jose Zhong MD Active AZITHROMYCIN 250 MG ORAL TABLET 2 po qd x 1 day, then 1 po q d x 4 days AZITHROMYCIN 60488782822 No Longer Active Jose Mcwilliams MD Active ZOFRAN ODT 4 MG ORAL TABLET DISINTEGRATING 1 po q6hr PRN Nausea ONDANSETRON 56279781962 No Longer Active Rich Rosales MD Active ZOFRAN 4 MG ORAL TABLET 1 tablet every 4 hours ONDANSETRON HCL 56053638788 No Longer Active Rich Rosales MD Activ e MUCINEX 600 MG ORAL TABLET EXTENDED RELEASE 12 HOUR Ta ke 1-2 tablets every 12 hours GUAIFENESIN 24810910202 No Longer Active Rich Rosales MD Active BACTRIM 400-80 MG ORAL TABLET take one po BID SULFAMETHOXAZOLE-TRIMETHOPRIM 95518132195 No Longer Active Abelardo HERNANDEZ Active AZITHROMYCIN 500 MG ORAL TABLET 1 PO q day x 6 days 20 03/02/23 AZITHROMYCIN 75039959374 No Longer Active Tin HERNANDEZ Activ e ZITHROMAX 250 MG ORAL TABLET 2 po today, then 1 po q days 2-5 20 10/03/08 AZITHROMYCIN 22428315059 No Longer Active Arie Casper MD Active ZITHROMAX 250 MG ORAL TABLET 2 po today, then 1 po q days 2-5 20 09/23/25 AZITHROMYCIN 69371553359 No Longer Active Arie Casper MD Active AMOXICILLIN 500 MG ORAL CAPSULE 1 tab by mouth 3 times daily 201 11/24/09 AMOXICILLIN 09288164803 No Longer Active Arie Casper MD Active BACTRIM DS 800-160 MG ORAL TABLET 1 tab by mouth twice daily 201 11/03/14 TRIMETHOPRIM-SULFAMETHOXAZOLE 75488204201 No Longer Active Fozia Casper MD Active AMOXICILLIN 500 MG ORAL TABLET take 1 tab po TID 08/05 AMOXICILLIN 23766050527 No Longer Active Arie Casper MD Acti ve BACTRIM DS 800-160 MG ORAL TABLET 1 tab by mouth twice daily 201 11/03/14 BACTRIM DS 800-160 MG ORAL TABLET 978627 TRIMETHOPRIM-SULFAMETHOXAZOLE Inactive MUCINEX 600 MG ORAL TABLET EXTENDED RELEASE 12 HOUR Ta ke 1-2 tablets every 12 hours MUCINEX 600 MG ORAL TABLET EXTENDED RELEA SE 12 HOUR GUAIFENESIN Inactive ZOFRAN 4 MG ORAL TABLET 1 tablet every 4 hours ZOFRAN 4 MG ORAL TABLET 801142 ONDANSETRON HCL Inactive ZOFRAN ODT 4 MG ORAL TABLET DISINTEGRATING 1 po q6hr PRN Nausea ZOFRAN ODT 4 MG ORAL TABLET DISINTEGRATING 510368 ONDAN SETRON Inactive CHLORASEPTIC MAX SORE THROAT 15-10 MG MOUTH/THROAT LOZENGE 1 every 2 hours prn CHLORASEPTIC MAX SORE THROAT 15-10 MG MOUTH/THROAT LOZENGE BENZOCAINE-MENTHOL Inactive COMTREX COLD/COUGH DAY/NITE MS 5-2-10-325 MG ORAL 2 caps deja ry 4 hours COMTREX COLD/COUGH DAY/NITE MS 5-2-10-325 MG ORA L [id number] Inactive [facility] TUSSIN COUGH/COLD CF 5-10-100 MG/5ML ORAL LIQUID 2 teasp oons every 4 hours [facility] TUSSIN COUGH/COLD CF 5-10-100 MG/5ML ORAL LI QUID [id number] Inactive IBUPROFEN 800 MG ORAL TABLET take one po Q 8 hours 201 02/01/16 IBUPROFEN 800 MG ORAL TABLET 831838 IBUPROFEN Inactive VITAMINS 0.8 MG ORAL TABLET take 1 tab po qday VITAMINS 0.8 MG ORAL TABLET [id number] E-FA Inactive TESSALON PERLES 100 MG ORAL CAPSULE 1 tablet by mouth 3 times da cory TESSALON PERLES 100 MG ORAL CAPSULE 309788 BENZONATATE Inactive AMOXICILLIN 500 MG ORAL CAPSULE 1 tab by mouth 3 times daily 201 02/21/05 AMOXICILLIN 500 MG ORAL CAPSULE 851813 AMOXICILLIN Inactive GUAIFENESIN-CODEINE 100-10 MG/5ML ORAL SYRUP 2 tsp every 6 hours prn GUAIFENESIN-CODEINE 100-10 MG/5ML ORAL SYRUP 600912 GUAIFENESIN-CODEINE Inactive VICKS DAYQUIL SEVERE COLD/FLU TABLET 1 tab every 6 hours prn 201 02/22/17 VICKS DAYQUIL SEVERE COLD/FLU TABLET PHENYLEPHRI IL-PG-GZ-APAP TABS Inactive BACTRIM DS 800-160 MG ORAL TABLET 1 twice a day 05/30 BACTRIM DS 800-160 MG ORAL TABLET 174378 SULFAMETHOXAZOLE-TRIMETHOPRIM Inactiv e PROMETHAZINE HCL 25 MG ORAL TABLET 1 four times a day as nee ded for vomiting PROMETHAZINE HCL 25 MG ORAL TABLET 919955 PROMETHAZINE HCL Inactive ZYRTEC ALLERGY 10 MG ORAL CAPSULE 1 po qd ZYRTEC ALLERGY 10 MG ORAL CAPSULE CETIRIZINE HCL Inactive MACROBID 100 MG ORAL CAPSULE 1 cap by mouth twice daily MACROBID 100 MG ORAL CAPSULE 8388360 NITROFURANTOIN MONOHYD MACRO In active LOMOTIL 2.5-0.025 MG ORAL TABLET 1 to 2 four times a day as needed for diarrhea LOMOTIL 2.5-0.025 MG ORAL TABLET 1778332 DIPHENOXYLATE-ATROPINE Inactive CYCLOBENZAPRINE HCL 10 MG ORAL TABLET 1/2 - 1 tablet b y mouth three times daily as needed for muscle spasm/pain CYCLOBEN ZAPRINE HCL 10 MG ORAL TABLET 806457 CYCLOBENZAPRINE HCL Inactive AMOXICILLIN 500 MG ORAL TABLET 2 tabs twice a day for 10 days 20 07/09/11 AMOXICILLIN 500 MG ORAL TABLET 479221 AMOXICILLIN I nactive LOMOTIL 2.5-0.025 MG ORAL TABLET 1 to 2 four times a day as needed for diarrhea LOMOTIL 2.5-0.025 MG ORAL TABLET 3584645 DIPHENOXYLATE-ATROPINE Inactive ZOFRAN 4 MG ORAL TABLET 1 TAB PO Q 6 HRS PRN NAUSEA 07/10/15 ZOFRAN 4 MG ORAL TABLET 641583 ONDANSETRON HCL Inactive CITRATE OF MAGNESIA ORAL SOLUTION 1 bottle today for constipatio n CITRATE OF MAGNESIA ORAL SOLUTION 3974838 MAGNESIUM CITR ATE Inactive PROMETHAZINE HCL 12.5 MG ORAL TABLET 1 tablet by mouth every 6 hours as needed for nausea/vomiting PROMETHAZINE HCL 12.5 MG ORA L TABLET 423113 PROMETHAZINE HCL Inactive PREDNISONE 20 MG ORAL TABLET 1 tablet twice daily for 2 days, then 1 tablet once daily for 2 days PREDNISONE 20 MG ORAL TABLET 295286 PREDNISONE Inactive ALPRAZOLAM 0.25 MG ORAL TABLET 1 tablet by mouth every 8 hours as needed for stress ALPRAZOLAM 0.25 MG ORAL TABLET 137480 ALPRA ZOLAM Inactive FLONASE 50 MCG/ACT NASAL SUSPENSION 1 spray each nostr il twice daily for allergies and runny nose until gone FLON ASE 50 MCG/ACT NASAL SUSPENSION 6545709 FLUTICASONE PROPIONATE Inactive PREDNISONE 20 MG ORAL TABLET 1 tablet daily for airway inflammat ion PREDNISONE 20 MG ORAL TABLET 928890 PREDNISONE Acton ctive NAPROXEN 500 MG ORAL TABLET Take 1 tab BID NAPROXEN 500 MG ORAL TABLET 257195 NAPROXEN Inactive ZOLOFT 50 MG ORAL TABLET 1 tablet by mouth daily 12/08 ZOLOFT 50 MG ORAL TABLET 402819 SERTRALINE HCL Inactive LOMOTIL 2.5-0.025 MG ORAL TABLET 1 tab po four times a day as needed for diarrhea LOMOTIL 2.5-0.025 MG ORAL TABLET 9838680 DIPHENOXYLATE-ATROPINE Inactive CETIRIZINE HCL 10 MG ORAL TABLET 1 po qd PRN Allergies CETIRIZINE HCL 10 MG ORAL TABLET 3630579 CETIRIZINE HCL Inactiv e TUSSIONEX PENNKINETIC ER 10-8 MG/5ML ORAL SUSPENSION E XTENDED RELEASE 5ml po q12hr PRN Cough TUSSIONEX PENNKINETI C ER 10-8 MG/5ML ORAL SUSPENSION EXTENDED RELEASE HYDROCOD POLST-CHLORPHEN POLST I nactive NEXPLANON IMPLANT right arm subcutaneously NEXPLANON IMPLANT ETONOGESTREL IMPL Inactive PROTONIX 40 MG ORAL TABLET DELAYED RELEASE 1 po q a.m. PROTONIX 40 MG ORAL TABLET DELAYED RELEASE 817506 PANTOPRAZOLE SODI UM Inactive AMOXICILLIN 500 MG ORAL TABLET take 1 tab po TID 08/05 AMOXICILLIN 500 MG ORAL TABLET 363857 AMOXICILLIN Inactive AMOXICILLIN 500 MG ORAL CAPSULE 1 tab by mouth 3 times daily 201 11/24/09 AMOXICILLIN 500 MG ORAL CAPSULE 481399 AMOXICILLIN Inactive ZITHROMAX 250 MG ORAL TABLET 2 po today, then 1 po q days 2-5 20 09/23/25 ZITHROMAX 250 MG ORAL TABLET 859066 AZITHROMYCIN Acton ctive ZITHROMAX 250 MG ORAL TABLET 2 po today, then 1 po q days 2-5 20 10/03/08 ZITHROMAX 250 MG ORAL TABLET 846691 AZITHROMYCIN Arlen ctive AZITHROMYCIN 500 MG ORAL TABLET 1 PO q day x 6 days 20 03/02/23 AZITHROMYCIN 500 MG ORAL TABLET 4507008 AZITHROMYCIN Inactive BACTRIM 400-80 MG ORAL TABLET take one po BID BACTRIM 400- 80 MG ORAL TABLET 390769 SULFAMETHOXAZOLE-TRIMETHOPRIM Inactive AZITHROMYCIN 250 MG ORAL TABLET 2 po qd x 1 day, then 1 po q d x 4 days AZITHROMYCIN 250 MG ORAL TABLET 152925 AZITHROMY ALLISON Inactive PREDNISONE 20 MG ORAL TABLET 2 tabs daily for 3 days, 1 tab daily for 3 days, 1/2 tab daily for 2 days PREDNISONE 20 MG ORAL T ABLET 217770 PREDNISONE Inactive ZITHROMAX 250 MG ORAL TABLET 2 po today, then 1 po q days 2-5 20 06/08/16 ZITHROMAX 250 MG ORAL TABLET 486957 AZITHROMYCIN Arlen ctive FLAGYL 500 MG ORAL TABLET 1 tablet by mouth two times daily 2014 FLAGYL 500 MG ORAL TABLET 915334 METRONIDAZOLE Inacti ve AUGMENTIN 875-125 MG ORAL TABLET 1 tab by mouth twice daily with food AUGMENTIN 875-125 MG ORAL TABLET 884990 AMOXICIL ELSA-POT CLAVULANATE Inactive NAPROXEN 500 MG ORAL TABLET one tab PO BID NAPROXEN 500 MG ORAL TABLET 228658 NAPROXEN Inactive PREDNISONE 20 MG ORAL TABLET 2 tabs daily for 3 days, 1 tab daily for 3 days, 1/2 tab daily for 2 days PREDNISONE 20 MG ORAL T ABLET 787828 PREDNISONE Inactive AZITHROMYCIN 250 MG ORAL TABLET 2 po qd x 1 day, then 1 po q d x 4 days AZITHROMYCIN 250 MG ORAL TABLET 118252 AZITHROMY ALLISON Inactive PREDNISONE 20 MG ORAL TABLET 2 tabs daily for 3 days, 1 tab daily for 3 days, 1/2 tab daily for 2 days PREDNISONE 20 MG ORAL T ABLET 230650 PREDNISONE Inactive ZITHROMAX Z-EMIL 250 MG ORAL TABLET 2 today, then 1 daily for 4 d ays ZITHROMAX Z-EMIL 250 MG ORAL TABLET 616099 AZITHROMYCIN Inactive CEFDINIR 300 MG ORAL CAPSULE 1 po BID x 10 days 12/18 CEFDINIR 300 MG ORAL CAPSULE 755494 CEFDINIR Inactive CEFDINIR 300 MG ORAL CAPSULE 1 po BID x 10 days CEFDINIR 300 MG ORAL CAPSULE 20030127 CEFDINIR Inactive PREDNISONE 20 MG ORAL TABLET 2 tabs daily for 3 days, 1 tab daily for 3 days, 1/2 tab daily for 2 days PREDNISONE 20 MG ORAL T ABLET 473637 PREDNISONE Inactive BACTRIM DS 800-160 MG ORAL TABLET 1 tab by mouth twice daily 201 05/02/30 BACTRIM DS 800-160 MG ORAL TABLET 302581 TRIMETHOPRIM-SULFAMETHOXAZOLE Inactive ZITHROMAX Z-EMIL 250 MG ORAL TABLET 2 today, then 1 daily for 4 d ays ZITHROMAX Z-EMIL 250 MG ORAL TABLET 187792 AZITHROMYCIN Inactive Advance Directives Directive Description Start Date [...] Value Unit Range Description blood pressure, diastolic 78 mm[Hg] BP kennedy [...] Unit Range Description Lab Report: CBC, Quant [facility] - Hematology leukocyte count, blood [...] count 263 10^3/MM^3 10*3/mm3 142-424 Lab Report: Chlamydia/GC APTIMA/[id number] - Lab chlamydia DNA probe NOT DETECTED NOT DETECTED Lab Report: Chlamydia/GC APTIMA/[id number] - Microbiology Neisseria gonorrhoeae DNA probe NOT [...] 5.0-8.5 Encounters Code Encounter Date Provider Facility CPT-26616 Level 3 Est. Patient 10:21:41 RAILWAY SWITCHMAN Arie mcqueen MD [facility] CPT-58332 Level 3 Est. Patient 11:35:15 RAILWAY SWITCHMAN Arie mcqueen MD [facility] CPT-06161 Level 3 Est. Patient 15:40:28 CDT Steve TOOTH POLISHER [facility] CPT-28424 Level 3 Est. Patient 16:40:36 CDT Arie mcqueen MD [facility] CPT-24376 Level 4 Est. Patient 15:29:22 RAILWAY SWITCHMAN Arie mcqueen MD [facility] CPT-93501 Level 3 Est. Patient 15:18:16 RAILWAY SWITCHMAN Jono black [facility] CPT-84455 Level 4 Est. Patient 12:08:40 RAILWAY SWITCHMAN Steve TOOTH POLISHER [facility] CPT-98159 Level 3 Est. Patient 09:24:42 CDT Steve [facility] CPT-07343 Level 3 Est. Patient 09:12:56 CDT Arie mcqueen MD [facility] CPT-71453 Level 3 Est. Patient 16:40:54 CDT Jose Zhong MD [facility] CPT-63951 Level 2 Est. Patient 13:01:13 CDT Steve [facility] CPT-28162 Level 3 Est. Patient 11:55:30 RAILWAY SWITCHMAN Jono black [facility] CPT-96159 Level 3 Est. Patient 09:52:36 RAILWAY SWITCHMAN Steve TOOTH POLISHER [facility] CPT-09927 Level 3 Est. Patient 16:25:33 RAILWAY SWITCHMAN Rich Rosales MD [facility] CPT-01373 Level 3 Est. Patient 20:33:55 CDT Arie mcqueen MD [facility] CPT-81832 Level 3 Est. Patient 14:18:20 CDT Rich Rosales MD [facility] CPT-16459 Level 4 Est. Patient 09:34:31 CDT Arie mcqueen MD [facility] CPT-73156 Level 3 Est. Patient 09:08:55 RAILWAY SWITCHMAN Liliana vincent MD [facility] CPT-68873 Level 3 Est. Patient 16:44:07 RAILWAY SWITCHMAN Arie mcqueen MD [facility] CPT-04454 Level 3 Est. Patient 10:44:27 CDT Arie mcqueen MD [facility] CPT-07290 Level 3 Est. Patient 08:55:41 CDT Jose Zhong MD [facility] CPT-79210 Level 3 Est. Patient 18:37:31 CDT Liliana vincent MD PhD [facility] CPT-64139 Level 3 Est. Patient 14:28:23 CDT Abelardo HERNANDEZ [facility] CPT-76144 Level 3 Est. Patient 15:18:13 RAILWAY SWITCHMAN Arie mcqueen MD [facility] CPT-68442 Level 3 Est. Patient 10:11:29 RAILWAY SWITCHMAN Arie mcqueen MD [facility] CPT-67856 Level 3 Est. Patient 10:55:57 RAILWAY SWITCHMAN Jono black DO [facility] CPT-79582 Level 3 Est. Patient 17:29:05 CDT Arie mcqueen MD [facility] Procedures Code Procedure Name Date Entry Date Standard Desc ription CPT-14960 Nexplanon Removal 15:40:28 CDT CPT-41838 Sono transvag pelvis non OB uterus ovari es cervix - XRAY USE ONLY 08:58:14 RAILWAY SWITCHMAN CPT-14969 UA w micro - LAB USE ONLY 16:04:56 RAILWAY SWITCHMAN 2015 CPT-36370 Wet Prep/GEN - LAB USE ONLY 16:04:56 RAILWAY SWITCHMAN 20 08/10/29 CPT-06225 First Vx - Ix admin via ID I M or jet injects without counseling by physician 16:57:10 CDT CPT-71980 Fluzone Preservative Free Intramuscular Suspension 16:57:10 CDT CPT-J0696 Rocephin 1000 mg (Ceftriaxone) 11:49:23 CDT CPT-J1040 Depo Medrol 80 mg (Methyl Prednisolone A cetate) 11:49:23 CDT CPT-J1100 Decadron 8mg (Dexamethasone) 11:49:23 CDT 2 CPT-98442 Abx/Therapy Injection 11:49:23 CDT CPT-04018 Abx/Therapy Injection 11:49:23 CDT CPT-86205 Abd compl w upright 09:07:26 RAILWAY SWITCHMAN CPT-39526 Ear Wash 16:12:47 RAILWAY SWITCHMAN CPT-OV Office Visit 11:12:01 CDT CPT-OV Office Visit 15:30:23 CDT CPT-85108 Sono pelvis non OB uterus ovaries cervix 15:50:44 CDT CPT-22077 Hand comp min 3V 16:42:32 CDT CPT-87747 Abd compl w upright 12:17:01 CDT CPT-93386 Nexplanon Placement 15:07:39 RAILWAY SWITCHMAN CPT-13830 Removal of IUD 15:07:39 RAILWAY SWITCHMAN CPT-78497 TB Tubersol 12:09:32 CDT CPT-71989 TB Tubersol 13:55:43 CDT
--- OUTSIDE RECORDS SUMMARY | 2020-03-03 07:22 | XMS REPORT | Clinical Summary ---
Author Author Admin, Diamante Marcelo Organization [employer] Address Unknown Phone Unavailable Allergies, Adverse Reactions, [...] implantable subdermal contraceptiv e Active Brii Russ NIGHT ORDER SELECTOR Vaginal bleeding 623.8 Active Arie Casper MD Other specified noninflammatory disorders of vagina Influenza like illness 487.1 Active Jose Mcwilliams MD Influenza with other respiratory manifestations Sinusitis 473.9 Active Jessica Heaton NIGHT ORDER SELECTOR Unspecified sinusitis (chronic) BREAST CANCER ICD-V16.3 Inactive [...] q12hr PRN Cough HYDROCOD POLST-CHLORPHEN POLST 5 [id number] No Longer Active Myrna Roberto MD Active ZITHROMAX Z-EMIL 250 MG TABS Take two tablets today and then 1 tablet daily for 4 days AZITHROMYCIN 20315459604 No Longer Active Flaco Rosales MD Active GUAIFENESIN DM 400-20 MG ORAL TABLET 1 pill by mouth t wice daily, if needed for cough DEXTROMETHORPHAN-GUAIFENESIN 71232132595 No Longer Active Rich Rosales MD Active CEFDINIR 300 MG ORAL CAPSULE 1 po BID x 10 days CEFDINIR 81742012033 No Longer Active Jessica Heaton APRN Active CHERATUSSIN AC 100-10 MG/5ML ORAL SYRUP 1 tsp by mouth every 4 hours as needed for cough GUAIFENESIN-CODEINE 73907279229 No Longe r Active Jessica Heaton APRN Active TAMIFLU 75 MG ORAL CAPSULE 1 po BID x 5 days 0 OSELTAMIVIR PHOSPHATE 11985140901 No Longer Active Jose Zhong MD Activ e ZITHROMAX Z-EMIL 250 MG ORAL TABLET 2 today, then 1 daily for 4 d ays AZITHROMYCIN 23222344450 No Longer Active Arie Casper MD Active PROTONIX 40 MG ORAL TABLET DELAYED RELEASE 1 po q a.m. PANTOPRAZOLE SODIUM 08444533070 No Longer Active Arie Casper MD Active BACTRIM DS 800-160 MG ORAL TABLET 1 tab by mouth twice daily 201 05/02/30 TRIMETHOPRIM-SULFAMETHOXAZOLE 95550510065 No Longer Active R cox monett [place] Active NEXPLANON IMPLANT right arm subcutaneously ETONOGESTREL IMPL 89518896930 No Longer Active Brii Russ APRN Active TUSSIONEX PENNKINETIC ER 10-8 MG/5ML ORAL SUSPENSION E XTENDED RELEASE 5ml po q12hr PRN Cough HYDROCOD POLST-CHLORPHEN POLST 5 1742054775 No Longer Active Brii Russ NIGHT ORDER SELECTOR Active CETIRIZINE HCL 10 MG ORAL TABLET 1 po qd PRN Allergies CETIRIZINE HCL 40009862907 No Longer Active Brii Russ APRN Activ e PREDNISONE 20 MG ORAL TABLET 2 tabs daily for 3 days, 1 tab daily for 3 days, 1/2 tab daily for 2 days PREDNISONE 97088566894 No Longer Active Arie Casper MD Active LOMOTIL 2.5-0.025 MG ORAL TABLET 1 tab po four times a day as needed for diarrhea DIPHENOXYLATE-ATROPINE 31638010849 No Lo nger Active Arie Casper MD Active ZOLOFT 50 MG ORAL TABLET 1 tablet by mouth daily 12/08 SERTRALINE HCL 84632950552 No Longer Active Arie Casper MD Ac tive NAPROXEN 500 MG ORAL TABLET Take 1 tab BID NAPR OXEN 34388146744 No Longer Active Arie Casper MD Active CEFDINIR 300 MG ORAL CAPSULE 1 po BID x 10 days CEFDINIR 84072596070 No Longer Active Brii Russ APRN Active PREDNISONE 20 MG ORAL TABLET 1 tablet daily for airway inflammat ion PREDNISONE 31646441646 No Longer Active Brii Russ APRN A ctive CEFDINIR 300 MG ORAL CAPSULE 1 po BID x 10 days CEFDINIR 92564093538 No Longer Active Jono Gagnon DO Active FLONASE 50 MCG/ACT NASAL SUSPENSION 1 spray each nostr il twice daily for allergies and runny nose until gone FLUT ICASONE PROPIONATE 55126544272 No Longer Active Jono Gagnon DO Active ALPRAZOLAM 0.25 MG ORAL TABLET 1 tablet by mouth every 8 hours as needed for stress ALPRAZOLAM 34362162801 No Longer Active Jono Gagnon DO Active ZITHROMAX Z-EMIL 250 MG ORAL TABLET 2 today, then 1 daily for 4 d ays AZITHROMYCIN 01756565131 No Longer Active Arie Casper MD Active PREDNISONE 20 MG ORAL TABLET 2 tabs daily for 3 days, 1 tab daily for 3 days, 1/2 tab daily for 2 days PREDNISONE 47022543014 No Longer Active Brii Russ APRN Active PREDNISONE 20 MG ORAL TABLET 1 tablet twice daily for 2 days, then 1 tablet once daily for 2 days PREDNISONE 84033867958 No Longer Active Brii Russ APRN Active PROMETHAZINE HCL 12.5 MG ORAL TABLET 1 tablet by mouth every 6 hours as needed for nausea/vomiting PROMETHAZINE HCL 13255940515 No L onger Active Jono Gagnon DO Active CITRATE OF MAGNESIA ORAL SOLUTION 1 bottle today for constipatio n MAGNESIUM CITRATE 33182685645 No Longer Active Jono Gagnon DO Active ZOFRAN 4 MG ORAL TABLET 1 TAB PO Q 6 HRS PRN NAUSEA 07/10/15 ONDANSETRON HCL 60557983084 No Longer Active Brii Russ APRN Acti ve LOMOTIL 2.5-0.025 MG ORAL TABLET 1 to 2 four times a day as needed for diarrhea DIPHENOXYLATE-ATROPINE 92383904634 No Longer Active January Russ APRN Active AMOXICILLIN 500 MG ORAL TABLET 2 tabs twice a day for 10 days 20 07/09/11 AMOXICILLIN 07855020634 No Longer Active Brii Russ APRN Active CYCLOBENZAPRINE HCL 10 MG ORAL TABLET 1/2 - 1 tablet b y mouth three times daily as needed for muscle spasm/pain CYCLOBENZAPRINE HCL 28224299667 No Longer Active Arie Casper MD Active LOMOTIL 2.5-0.025 MG ORAL TABLET 1 to 2 four times a day as needed for diarrhea DIPHENOXYLATE-ATROPINE 45783076662 No Longer Active Fozia Casper MD Active MACROBID 100 MG ORAL CAPSULE 1 cap by mouth twice daily NITROFURANTOIN MONOHYD MACRO 79049503347 No Longer Active Arie Casper MD Active ZYRTEC ALLERGY 10 MG ORAL CAPSULE 1 po qd CE TIRIZINE HCL 43359640735 No Longer Active Arie Casper MD Active AZITHROMYCIN 250 MG ORAL TABLET 2 po qd x 1 day, then 1 po q d x 4 days AZITHROMYCIN 70322791397 No Longer Active Jessica salgado NIGHT ORDER SELECTOR Active PREDNISONE 20 MG ORAL TABLET 2 tabs daily for 3 days, 1 tab daily for 3 days, 1/2 tab daily for 2 days PREDNISONE 73947362168 No Longer Active Jessica Heatno NIGHT ORDER SELECTOR Active PROMETHAZINE HCL 25 MG ORAL TABLET 1 four times a day as nee ded for vomiting PROMETHAZINE HCL 13418566838 No Longer Active Myrna Roberto MD Active BACTRIM DS 800-160 MG ORAL TABLET 1 twice a day 05/30 SULFAMETHOXAZOLE-TRIMETHOPRIM 31249793679 No Longer Active Myrna Roberto MD Active VICKS DAYQUIL SEVERE COLD/FLU TABLET 1 tab every 6 hours prn 201 02/22/17 [id number]-[id number]-APAP TABS 93174072959 No Longer Active Chris Roberto MD Active GUAIFENESIN-CODEINE 100-10 MG/5ML ORAL SYRUP 2 tsp every 6 hours prn GUAIFENESIN-CODEINE 56404553042 No Longer Active Myrna Roberto MD Active NAPROXEN 500 MG ORAL TABLET one tab PO BID NAPR OXEN 77544934410 No Longer Active Myrna Roberto MD Active AUGMENTIN 875-125 MG ORAL TABLET 1 tab by mouth twice daily with food AMOXICILLIN-POT CLAVULANATE 73607371884 No Longer Act zaid Liliana Estrada MD PhD Active AMOXICILLIN 500 MG ORAL CAPSULE 1 tab by mouth 3 times daily 201 02/21/05 AMOXICILLIN 86229707199 No Longer Active Liliana Estrada MD PhD Active TESSALON PERLES 100 MG ORAL CAPSULE 1 tablet by mouth 3 times da cory BENZONATATE 20083005949 No Longer Active Liliana Estrada MD PhD Active FLAGYL 500 MG ORAL TABLET 1 tablet by mouth two times daily 2014 METRONIDAZOLE 18158359652 No Longer Active Nilam Doran tive ZITHROMAX 250 MG ORAL TABLET 2 po today, then 1 po q days 2-5 20 06/08/16 AZITHROMYCIN 36631722046 No Longer Active Arie Casper MD Active VITAMINS 0.8 MG ORAL TABLET take 1 tab po qday [id number] 18047905455 No Longer Active Arie Casper MD Active IBUPROFEN 800 MG ORAL TABLET take one po Q 8 hours 201 02/01/16 IBUPROFEN 18401116593 No Longer Active Arie Casper MD Acti ve [facility] TUSSIN COUGH/COLD CF 5-10-100 MG/5ML ORAL LIQUID 2 teasp oons every 4 hours [id number]-HD-VG 13893771390 No Longer Active Blaine Casper MD Active COMTREX COLD/COUGH DAY/NITE MS 5-2-10-325 MG ORAL 2 caps deja ry 4 hours [id number]-EN-APAP 68677252061 No Longer Active Da aleksandra Casper MD Active CHLORASEPTIC MAX SORE THROAT 15-10 MG MOUTH/THROAT LOZENGE 1 every 2 hours prn BENZOCAINE-MENTHOL 59143306288 No Longer Active Arie Casper MD Active PREDNISONE 20 MG ORAL TABLET 2 tabs daily for 3 days, 1 tab daily for 3 days, 1/2 tab daily for 2 days PREDNISONE 10956632857 No Longer Active Jose Zhong MD Active AZITHROMYCIN 250 MG ORAL TABLET 2 po qd x 1 day, then 1 po q d x 4 days AZITHROMYCIN 98378195232 No Longer Active Jose Mcwilliams MD Active ZOFRAN ODT 4 MG ORAL TABLET DISINTEGRATING 1 po q6hr PRN Nausea ONDANSETRON 38627265246 No Longer Active Rich Rosales MD Active ZOFRAN 4 MG ORAL TABLET 1 tablet every 4 hours ONDANSETRON HCL 72028957914 No Longer Active Rich Rosales MD Activ e MUCINEX 600 MG ORAL TABLET EXTENDED RELEASE 12 HOUR Ta ke 1-2 tablets every 12 hours GUAIFENESIN 64456307346 No Longer Active Rich Rosales MD Active BACTRIM 400-80 MG ORAL TABLET take one po BID SULFAMETHOXAZOLE-TRIMETHOPRIM 99510455833 No Longer Active Abelardo HERNANDEZ Active AZITHROMYCIN 500 MG ORAL TABLET 1 PO q day x 6 days 20 03/02/23 AZITHROMYCIN 51967149649 No Longer Active Tin HERNANDEZ Activ e ZITHROMAX 250 MG ORAL TABLET 2 po today, then 1 po q days 2-5 20 10/03/08 AZITHROMYCIN 83554820101 No Longer Active Arie Casper MD Active ZITHROMAX 250 MG ORAL TABLET 2 po today, then 1 po q days 2-5 20 09/23/25 AZITHROMYCIN 31190855391 No Longer Active Arie Casper MD Active AMOXICILLIN 500 MG ORAL CAPSULE 1 tab by mouth 3 times daily 201 11/24/09 AMOXICILLIN 42262501933 No Longer Active Arie Casper MD Active BACTRIM DS 800-160 MG ORAL TABLET 1 tab by mouth twice daily 201 11/03/14 TRIMETHOPRIM-SULFAMETHOXAZOLE 29918590320 No Longer Active Fozia Casper MD Active AMOXICILLIN 500 MG ORAL TABLET take 1 tab po TID 08/05 AMOXICILLIN 44842748852 No Longer Active Arie Casper MD Acti ve BACTRIM DS 800-160 MG ORAL TABLET 1 tab by mouth twice daily 201 11/03/14 BACTRIM DS 800-160 MG ORAL TABLET 833245 TRIMETHOPRIM-SULFAMETHOXAZOLE Inactive MUCINEX 600 MG ORAL TABLET EXTENDED RELEASE 12 HOUR Ta ke 1-2 tablets every 12 hours MUCINEX 600 MG ORAL TABLET EXTENDED RELEA SE 12 HOUR GUAIFENESIN Inactive ZOFRAN 4 MG ORAL TABLET 1 tablet every 4 hours ZOFRAN 4 MG ORAL TABLET 135576 ONDANSETRON HCL Inactive ZOFRAN ODT 4 MG ORAL TABLET DISINTEGRATING 1 po q6hr PRN Nausea ZOFRAN ODT 4 MG ORAL TABLET DISINTEGRATING 593000 ONDAN SETRON Inactive CHLORASEPTIC MAX SORE THROAT 15-10 MG MOUTH/THROAT LOZENGE 1 every 2 hours prn CHLORASEPTIC MAX SORE THROAT 15-10 MG MOUTH/THROAT LOZENGE BENZOCAINE-MENTHOL Inactive COMTREX COLD/COUGH DAY/NITE MS 5-2-10-325 MG ORAL 2 caps deja ry 4 hours COMTREX COLD/COUGH DAY/NITE MS 5-2-10-325 MG ORA L [id number] Inactive [facility] TUSSIN COUGH/COLD CF 5-10-100 MG/5ML ORAL LIQUID 2 teasp oons every 4 hours [facility] TUSSIN COUGH/COLD CF 5-10-100 MG/5ML ORAL LI QUID [id number] Inactive IBUPROFEN 800 MG ORAL TABLET take one po Q 8 hours 201 02/01/16 IBUPROFEN 800 MG ORAL TABLET IBUPROFEN Inactive VITAMINS 0.8 MG ORAL TABLET take 1 tab po qday VITAMINS 0.8 MG ORAL TABLET [id number] E-FA Inactive TESSALON PERLES 100 MG ORAL CAPSULE 1 tablet by mouth 3 times da cory TESSALON PERLES 100 MG ORAL CAPSULE 751614 BENZONATATE Inactive AMOXICILLIN 500 MG ORAL CAPSULE 1 tab by mouth 3 times daily 201 02/21/05 AMOXICILLIN 500 MG ORAL CAPSULE 011352 AMOXICILLIN Inactive GUAIFENESIN-CODEINE 100-10 MG/5ML ORAL SYRUP 2 tsp every 6 hours prn GUAIFENESIN-CODEINE 100-10 MG/5ML ORAL SYRUP 193742 GUAIFENESIN-CODEINE Inactive VICKS DAYQUIL SEVERE COLD/FLU TABLET 1 tab every 6 hours prn 201 02/22/17 VICKS DAYQUIL SEVERE COLD/FLU TABLET PHENYLEPHRI HI-RF-XV-APAP TABS Inactive BACTRIM DS 800-160 MG ORAL TABLET 1 twice a day 05/30 BACTRIM DS 800-160 MG ORAL TABLET 998851 SULFAMETHOXAZOLE-TRIMETHOPRIM Inactiv e PROMETHAZINE HCL 25 MG ORAL TABLET 1 four times a day as nee ded for vomiting PROMETHAZINE HCL 25 MG ORAL TABLET 232828 PROMETHAZINE HCL Inactive ZYRTEC ALLERGY 10 MG ORAL CAPSULE 1 po qd ZYRTEC ALLERGY 10 MG ORAL CAPSULE CETIRIZINE HCL Inactive MACROBID 100 MG ORAL CAPSULE 1 cap by mouth twice daily MACROBID 100 MG ORAL CAPSULE 3602415 NITROFURANTOIN MONOHYD MACRO In active LOMOTIL 2.5-0.025 MG ORAL TABLET 1 to 2 four times a day as needed for diarrhea LOMOTIL 2.5-0.025 MG ORAL TABLET 1478033 DIPHENOXYLATE-ATROPINE Inactive CYCLOBENZAPRINE HCL 10 MG ORAL TABLET 1/2 - 1 tablet b y mouth three times daily as needed for muscle spasm/pain CYCLOBEN ZAPRINE HCL 10 MG ORAL TABLET 674313 CYCLOBENZAPRINE HCL Inactive AMOXICILLIN 500 MG ORAL TABLET 2 tabs twice a day for 10 days 20 07/09/11 AMOXICILLIN 500 MG ORAL TABLET 766213 AMOXICILLIN I nactive LOMOTIL 2.5-0.025 MG ORAL TABLET 1 to 2 four times a day as needed for diarrhea LOMOTIL 2.5-0.025 MG ORAL TABLET 5927294 DIPHENOXYLATE-ATROPINE Inactive ZOFRAN 4 MG ORAL TABLET 1 TAB PO Q 6 HRS PRN NAUSEA 20 07/10/15 ZOFRAN 4 MG ORAL TABLET 109000 ONDANSETRON HCL Inactive CITRATE OF MAGNESIA ORAL SOLUTION 1 bottle today for constipatio n CITRATE OF MAGNESIA ORAL SOLUTION 7891492 MAGNESIUM CITR ATE Inactive PROMETHAZINE HCL 12.5 MG ORAL TABLET 1 tablet by mouth every 6 hours as needed for nausea/vomiting PROMETHAZINE HCL 12.5 MG ORA L TABLET 722499 PROMETHAZINE HCL Inactive PREDNISONE 20 MG ORAL TABLET 1 tablet twice daily for 2 days, then 1 tablet once daily for 2 days PREDNISONE 20 MG ORAL TABLET 693896 PREDNISONE Inactive ALPRAZOLAM 0.25 MG ORAL TABLET 1 tablet by mouth every 8 hours as needed for stress ALPRAZOLAM 0.25 MG ORAL TABLET 417455 ALPRA ZOLAM Inactive FLONASE 50 MCG/ACT NASAL SUSPENSION 1 spray each nostr il twice daily for allergies and runny nose until gone FLON ASE 50 MCG/ACT NASAL SUSPENSION 0870752 FLUTICASONE PROPIONATE Inactive PREDNISONE 20 MG ORAL TABLET 1 tablet daily for airway inflammat ion PREDNISONE 20 MG ORAL TABLET 883639 PREDNISONE [place] ctive NAPROXEN 500 MG ORAL TABLET Take 1 tab BID NAPROXEN 500 MG ORAL TABLET 114709 NAPROXEN Inactive ZOLOFT 50 MG ORAL TABLET 1 tablet by mouth daily 12/08 ZOLOFT 50 MG ORAL TABLET 446091 SERTRALINE HCL Inactive LOMOTIL 2.5-0.025 MG ORAL TABLET 1 tab po four times a day as needed for diarrhea LOMOTIL 2.5-0.025 MG ORAL TABLET 7741186 DIPHENOXYLATE-ATROPINE Inactive CETIRIZINE HCL 10 MG ORAL TABLET 1 po qd PRN Allergies CETIRIZINE HCL 10 MG ORAL TABLET 6364206 CETIRIZINE HCL Inactiv e TUSSIONEX PENNKINETIC ER 10-8 MG/5ML ORAL SUSPENSION E XTENDED RELEASE 5ml po q12hr PRN Cough TUSSIONEX PENNKINETI C ER 10-8 MG/5ML ORAL SUSPENSION EXTENDED RELEASE HYDROCOD POLST-CHLORPHEN POLST I nactive NEXPLANON IMPLANT right arm subcutaneously NEXPLANON IMPLANT ETONOGESTREL IMPL Inactive PROTONIX 40 MG ORAL TABLET DELAYED RELEASE 1 po q a.m. PROTONIX 40 MG ORAL TABLET DELAYED RELEASE 763889 PANTOPRAZOLE SODI UM Inactive CHERATUSSIN AC 100-10 MG/5ML ORAL SYRUP 1 tsp by mouth every 4 hours as needed for cough CHERATUSSIN AC 100-10 MG/5ML ORAL SYRUP 9 52851 GUAIFENESIN-CODEINE Inactive GUAIFENESIN DM 400-20 MG ORAL [...] TID 08/05 AMOXICILLIN 500 MG ORAL TABLET 768713 AMOXICILLIN Inactive AMOXICILLIN 500 MG ORAL CAPSULE 1 tab by mouth 3 times daily 201 11/24/09 AMOXICILLIN 500 MG ORAL CAPSULE 146433 AMOXICILLIN Inactive ZITHROMAX 250 MG ORAL TABLET 2 po today, then 1 po q days 2-5 20 09/23/25 ZITHROMAX 250 MG ORAL TABLET 994180 AZITHROMYCIN [place] ctive ZITHROMAX 250 MG ORAL TABLET 2 po today, then 1 po q days 2-5 20 10/03/08 ZITHROMAX 250 MG ORAL TABLET 555277 AZITHROMYCIN [place] ctive AZITHROMYCIN 500 MG ORAL TABLET 1 PO q day x 6 days 03/02/23 AZITHROMYCIN 500 MG ORAL TABLET 6336287 AZITHROMYCIN Inactive BACTRIM 400-80 MG ORAL TABLET take one po BID BACTRIM 400- 80 MG ORAL TABLET 655050 SULFAMETHOXAZOLE-TRIMETHOPRIM Inactive AZITHROMYCIN 250 MG ORAL TABLET 2 po qd x 1 day, then 1 po q d x 4 days AZITHROMYCIN 250 MG ORAL TABLET 683270 AZITHROMY ALLISON Inactive PREDNISONE 20 MG ORAL TABLET 2 tabs daily for 3 days, 1 tab daily for 3 days, 1/2 tab daily for 2 days PREDNISONE 20 MG ORAL T ABLET 113239 PREDNISONE Inactive ZITHROMAX 250 MG ORAL TABLET 2 po today, then 1 po q days 2-5 20 06/08/16 ZITHROMAX 250 MG ORAL TABLET 222387 AZITHROMYCIN [place] ctive FLAGYL 500 MG ORAL TABLET 1 tablet by mouth two times daily 2014 FLAGYL 500 MG ORAL TABLET 551379 METRONIDAZOLE Inacti ve AUGMENTIN 875-125 MG ORAL TABLET 1 tab by mouth twice daily with food AUGMENTIN 875-125 MG ORAL TABLET 453865 AMOXICIL ELSA-POT CLAVULANATE Inactive NAPROXEN 500 MG ORAL TABLET one tab PO BID NAPROXEN 500 MG ORAL TABLET 999416 NAPROXEN Inactive PREDNISONE 20 MG ORAL TABLET 2 tabs daily for 3 days, 1 tab daily for 3 days, 1/2 tab daily for 2 days PREDNISONE 20 MG ORAL T ABLET 778461 PREDNISONE Inactive AZITHROMYCIN 250 MG ORAL TABLET 2 po qd x 1 day, then 1 po q d x 4 days AZITHROMYCIN 250 MG ORAL TABLET 215970 AZITHROMY ALLISON Inactive PREDNISONE 20 MG ORAL TABLET 2 tabs daily for 3 days, 1 tab daily for 3 days, 1/2 tab daily for 2 days PREDNISONE 20 MG ORAL T ABLET 554447 PREDNISONE Inactive ZITHROMAX Z-EMIL 250 MG ORAL TABLET 2 today, then 1 daily for 4 d ays ZITHROMAX Z-EMIL 250 MG ORAL TABLET 497745 AZITHROMYCIN Inactive CEFDINIR 300 MG ORAL CAPSULE [...] days PREDNISONE 20 MG ORAL T ABLET 049720 PREDNISONE Inactive BACTRIM DS 800-160 MG ORAL TABLET 1 tab by mouth twice daily 201 05/02/30 BACTRIM DS 800-160 MG ORAL TABLET 516710 TRIMETHOPRIM-SULFAMETHOXAZOLE Inactive ZITHROMAX Z-EMIL 250 MG ORAL TABLET 2 today, then 1 daily for 4 d ays ZITHROMAX Z-EMIL 250 MG ORAL TABLET 797617 AZITHROMYCIN Inactive TAMIFLU 75 MG ORAL CAPSULE 1 po BID x 5 days 0 TAMIFLU 75 MG ORAL CAPSULE 719351 OSELTAMIVIR PHOSPHATE Inactive CEFDINIR 300 MG ORAL CAPSULE 1 po BID x 10 days 2018/01/03 CEFDINIR 300 MG ORAL CAPSULE 300797 CEFDINIR Inactive ZITHROMAX Z-EMIL 250 MG TABS Take two tablets today and then 1 tablet daily for 4 days ZITHROMAX Z-EMIL 250 MG TABS 534130 AZITHROM YCIN Inactive Advance Directives Directive Description [...] Negative Encounters Code Encounter Date Provider Facility CPT-17326 Level 3 Est. Patient 11:49:34 OPERATOR PREFINISH Jessica boyd [facility] CPT-18551 Level 3 Est. Patient 14:55:50 OPERATOR PREFINISH Jose Zhong MD [facility] CPT-39538 Level 3 Est. Patient 10:21:41 OPERATOR PREFINISH Arie mcqueen MD [facility] CPT-27916 Level 3 Est. Patient 11:35:15 OPERATOR PREFINISH Arie mcqueen MD [facility] CPT-08558 Level 3 Est. Patient 15:40:28 CDT Brii escalante [facility] CPT-26687 Level 3 Est. Patient 16:40:36 CDT Arie mcqueen MD [facility] CPT-66141 Level 4 Est. Patient 15:29:22 OPERATOR PREFINISH Arie mcqueen MD [facility] CPT-89626 Level 3 Est. Patient 15:18:16 OPERATOR PREFINISH [facility] CPT-40516 Level 4 Est. Patient 12:08:40 OPERATOR PREFINISH Brii Are ll NIGHT ORDER SELECTOR [facility] CPT-62373 Level 3 Est. Patient 09:24:42 CDT Brii Are ll NIGHT ORDER SELECTOR [facility] CPT-91809 Level 3 Est. Patient 09:12:56 CDT Arie mcqueen MD [facility] CPT-18567 Level 3 Est. Patient 16:40:54 CDT Jose Zhong MD [facility] CPT-78728 Level 2 Est. Patient 13:01:13 CDT Brii Are ll [facility] CPT-06916 Level 3 Est. Patient 11:55:30 OPERATOR PREFINISH Jono Cheema [facility]-[id number] Level 3 Est. Patient 09:52:36 OPERATOR PREFINISH Brii Are ll [facility] CPT-63418 Level 3 Est. Patient 16:25:33 OPERATOR PREFINISH Rich Rosales MD [facility] CPT-09994 Level 3 Est. Patient 20:33:55 CDT Arie mcqueen MD [facility] CPT-96284 Level 3 Est. Patient 14:18:20 CDT Rich Rosales MD [facility] CPT-99546 Level 4 Est. Patient 09:34:31 CDT Arie mcqueen MD [facility] CPT-77903 Level 3 Est. Patient 09:08:55 OPERATOR PREFINISH Liliana vincent MD PhD [facility] CPT-75178 Level 3 Est. Patient 16:44:07 OPERATOR PREFINISH Arie mcqueen MD [facility]-69108 Level 3 Est. Patient 10:44:27 CDT Arie mcqueen MD [facility] CPT-05104 Level 3 Est. Patient 08:55:41 CDT Jose Zhong MD [facility] CPT-50883 Level 3 Est. Patient 18:37:31 CDT Liliana vincent MD PhD [facility] CPT-16299 Level 3 Est. Patient 14:28:23 CDT Abelardo HERNANDEZ [facility] CPT-25131 Level 3 Est. Patient 15:18:13 OPERATOR PREFINISH Arie mcqueen MD [facility] CPT-42673 Level 3 Est. Patient 10:11:29 OPERATOR PREFINISH Arie mcqueen MD [facility] CPT-66697 Level 3 Est. Patient 10:55:57 OPERATOR PREFINISH Jono black DO [facility] CPT-41308 Level 3 Est. Patient 17:29:05 CDT Arie mcqueen MD [facility] Procedures Code Procedure Name Date Entry Date Standard Desc ription CPT-77040 Nexplanon Removal 15:40:28 CDT CPT-83316 Sono transvag pelvis non OB uterus ovari es cervix - XRAY USE ONLY 08:58:14 OPERATOR PREFINISH CPT-52307 UA w micro - LAB USE ONLY 16:04:56 OPERATOR PREFINISH 2015 CPT-14549 Wet Prep/GEN - LAB USE ONLY 16:04:56 OPERATOR PREFINISH 20 08/10/29 CPT-65330 First Vx - Ix admin via ID I M or jet injects without counseling by physician 16:57:10 CDT CPT-16725 Fluzone Preservative Free Intramuscular Suspension 16:57:10 CDT CPT-J0696 Rocephin 1000 mg (Ceftriaxone) 11:49:23 CDT CPT-J1040 Depo Medrol 80 mg (Methyl Prednisolone A cetate) 11:49:23 CDT CPT-J1100 Decadron 8mg (Dexamethasone) 11:49:23 CDT 2 CPT-57998 Abx/Therapy Injection 11:49:23 CDT CPT-29583 Abx/Therapy Injection 11:49:23 CDT CPT-97230 Abd compl w upright 09:07:26 OPERATOR PREFINISH CPT-85661 Ear Wash 16:12:47 OPERATOR PREFINISH CPT-OV Office Visit 11:12:01 CDT CPT-OV Office Visit 15:30:23 CDT CPT-97736 Sono pelvis non OB uterus ovaries cervix 15:50:44 CDT CPT-64171 Hand comp min 3V 16:42:32 CDT CPT-29650 Abd compl w upright 12:17:01 CDT CPT-54961 Nexplanon Placement 15:07:39 OPERATOR PREFINISH CPT-74672 Removal of IUD 15:07:39 OPERATOR PREFINISH CPT-15238 TB Tubersol 12:09:32 CDT CPT-77274 TB Tubersol 13:55:43 CDT
--- OUTSIDE RECORDS SUMMARY | 2020-03-03 07:22 | XMS REPORT | Clinical Summary ---
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 Active Brii MARROQUIN RN Conditions [...] quadrant Urinary frequency 788.41 Inactive Roseann Crawford [facility] Urinary frequency Urinary frequency 788.41 [...] Vaccination for Prophylaxis V04.81 Inactive Brii Russ SOCIOLOGY RESEARCH ASSISTANT Need for prophylactic vaccin ation and inoculation [...] Acute cystitis Cervicalgia 723.1 Active Olga Sheridan SOCIOLOGY RESEARCH ASSISTANT-C Cervicalgia Encounter for examination and observatio n [...] as needed for muscle spasm TIZANIDINE HCL 90158503222 No Longer Active Olga Sheridan APRN-C Active PYRIDOXINE HCL 25 MG ORAL TABLET one tab PO 3-4 times per day 12/12/17 PYRIDOXINE HCL 27358368073 No Longer Active Olga Sheridan SOCIOLOGY RESEARCH ASSISTANT-C Active UNISOM SLEEPTABS 25 MG ORAL TABLET one tab PO qhs 2018 DOXYLAMINE SUCCINATE (SLEEP) 54032483467 No Longer Active Olga Sheridan APR N-C Active CIPROFLOXACIN HCL 250 MG TABS Take 1 twice a day for 5 days for bladder infection CIPROFLOXACIN HCL 55396231648 No Longer Active Arie Casper MD Active TYLENOL 325 MG ORAL CAPSULE PRN ACETAMINOPHEN 000 02963541 Active Brii Pacheco Active ESCITALOPRAM OXALATE 10 MG ORAL TABLET take 1 tab po qhs for mod ESCITALOPRAM OXALATE 42062946811 No Longer Active Brii Pacheco Active ALPRAZOLAM 0.25 MG ORAL TABLET 1 tablet by mouth twice a day as needed for stress/anxiety ALPRAZOLAM 86431284161 No Longer Active Brii Pacheco Active PROTONIX 40 MG ORAL TABLET DELAYED RELEASE 1 pill by cox branson daily, for acid reflux PANTOPRAZOLE SODIUM 36701910297 No Longer Activ e Brii Pacheco Active DIFLUCAN 100 MG ORAL TABLET 1 tablet by mouth daily, R EPEAT 2ND DOSE IN 7 DAYS IF STILL SYMPTOMATIC FLUCONAZOLE 57515332629 No Long er Active Nilam Weber Active KEFLEX 500 MG ORAL CAPSULE 1 po tid CEPHALEXI N 26917632323 No Longer Active Tali Devi PA-C Active CONCEPT DHA 53.5-38-1 MG ORAL CAPSULE 1 tablet daily [id number]-[id number]-OMEGA 3 73527542207 Active Oxana Souza LPN Active AMOXICILLIN 875 MG ORAL TABLET 1 tab by mouth twice daily 1 AMOXICILLIN 06027031525 No Longer Active Brii Russ SOCIOLOGY RESEARCH ASSISTANT Active TUSSIONEX PENNKINETIC ER 10-8 MG/5ML ORAL SUSPENSION E XTENDED RELEASE 5ml po q12hr PRN Cough HYDROCOD POLST-CHLORPHEN POLST 5 4574486250 No Longer Active Myrna Roberto MD Active ZITHROMAX Z-EMIL 250 MG TABS Take two tablets today and then 1 tablet daily for 4 days AZITHROMYCIN 93023537975 No Longer Active Flaco Rosales MD Active GUAIFENESIN DM 400-20 MG ORAL TABLET 1 pill by mouth t wice daily, if needed for cough DEXTROMETHORPHAN-GUAIFENESIN 83207937634 No Longer Active Rich Rosales MD Active CEFDINIR 300 MG ORAL CAPSULE 1 po BID x 10 days CEFDINIR 00834145114 No Longer Active Jessica Heaton APRN Active CHERATUSSIN AC 100-10 MG/5ML ORAL SYRUP 1 tsp by mouth every 4 hours as needed for cough GUAIFENESIN-CODEINE 70164711147 No Longe r Active Waynekaruna Marcellnaomi SOCIOLOGY RESEARCH ASSISTANT Active TAMIFLU 75 MG ORAL CAPSULE 1 po BID x 5 days 0 OSELTAMIVIR PHOSPHATE 34928012454 No Longer Active Jose Zhong MD Activ e ZITHROMAX Z-EMIL 250 MG ORAL TABLET 2 today, then 1 daily for 4 d ays AZITHROMYCIN 14231337389 No Longer Active Arie Casper MD Active PROTONIX 40 MG ORAL TABLET DELAYED RELEASE 1 po q a.m. PANTOPRAZOLE SODIUM 55832522569 No Longer Active Arie Casper MD Active BACTRIM DS 800-160 MG ORAL TABLET 1 tab by mouth twice daily 201 05/02/30 TRIMETHOPRIM-SULFAMETHOXAZOLE 11901949585 No Longer Active R KELLIE Sandoval Active NEXPLANON IMPLANT right arm subcutaneously ETONOGESTREL IMPL 21115883220 No Longer Active Brii Russ SOCIOLOGY RESEARCH ASSISTANT Active TUSSIONEX PENNKINETIC ER 10-8 MG/5ML ORAL SUSPENSION E XTENDED RELEASE 5ml po q12hr PRN Cough HYDROCOD POLST-CHLORPHEN POLST 5 5406487309 No Longer Active Brii Russ SOCIOLOGY RESEARCH ASSISTANT Active CETIRIZINE HCL 10 MG ORAL TABLET 1 po qd PRN Allergies CETIRIZINE HCL 73553874596 No Longer Active Brii Russ APRN Activ e PREDNISONE 20 MG ORAL TABLET 2 tabs daily for 3 days, 1 tab daily for 3 days, 1/2 tab daily for 2 days PREDNISONE 62482411778 No Longer Active Arie Casper MD Active LOMOTIL 2.5-0.025 MG ORAL TABLET 1 tab po four times a day as needed for diarrhea DIPHENOXYLATE-ATROPINE 66449065687 No Lo nger Active Arie Casper MD Active ZOLOFT 50 MG ORAL TABLET 1 tablet by mouth daily 12/08 SERTRALINE HCL 93367060895 No Longer Active Arie Casper MD Ac tive NAPROXEN 500 MG ORAL TABLET Take 1 tab BID NAPR OXEN 54479824440 No Longer Active Arie Casper MD Active CEFDINIR 300 MG ORAL CAPSULE 1 po BID x 10 days CEFDINIR 63562670343 No Longer Active Brii Russ APRN Active PREDNISONE 20 MG ORAL TABLET 1 tablet daily for airway inflammat ion PREDNISONE 95388423224 No Longer Active Brii Russ APRN A ctive CEFDINIR 300 MG ORAL CAPSULE 1 po BID x 10 days CEFDINIR 73540231785 No Longer Active Jono Gagnon DO Active FLONASE 50 MCG/ACT NASAL SUSPENSION 1 spray each nostr il twice daily for allergies and runny nose until gone FLUT ICASONE PROPIONATE 86076892135 No Longer Active Jono Gagnon DO Active ALPRAZOLAM 0.25 MG ORAL TABLET 1 tablet by mouth every 8 hours as needed for stress ALPRAZOLAM 79648894545 No Longer Active Jono Gagnon DO Active ZITHROMAX Z-EMIL 250 MG ORAL TABLET 2 today, then 1 daily for 4 d ays AZITHROMYCIN 08103454892 No Longer Active Arie Casper MD Active PREDNISONE 20 MG ORAL TABLET 2 tabs daily for 3 days, 1 tab daily for 3 days, 1/2 tab daily for 2 days PREDNISONE 77488834970 No Longer Active Brii Russ APRN Active PREDNISONE 20 MG ORAL TABLET 1 tablet twice daily for 2 days, then 1 tablet once daily for 2 days PREDNISONE 21178039455 No Longer Active Brii Russ APRN Active PROMETHAZINE HCL 12.5 MG ORAL TABLET 1 tablet by mouth every 6 hours as needed for nausea/vomiting PROMETHAZINE HCL 29827159020 No L onger Active Jono Gagnon DO Active CITRATE OF MAGNESIA ORAL SOLUTION 1 bottle today for constipatio n MAGNESIUM CITRATE 70265456316 No Longer Active Jono Gagnon DO Active ZOFRAN 4 MG ORAL TABLET 1 TAB PO Q 6 HRS PRN NAUSEA 20 07/10/15 ONDANSETRON HCL 59476198433 No Longer Active Brii Russ APRN Acti ve LOMOTIL 2.5-0.025 MG ORAL TABLET 1 to 2 four times a day as needed for diarrhea DIPHENOXYLATE-ATROPINE 74751582312 No Longer Active January Russ APRN Active AMOXICILLIN 500 MG ORAL TABLET 2 tabs twice a day for 10 days 07/09/11 AMOXICILLIN 47347035099 No Longer Active Brii Russ APRN Active CYCLOBENZAPRINE HCL 10 MG ORAL TABLET 1/2 - 1 tablet b y mouth three times daily as needed for muscle spasm/pain CYCLOBENZAPRINE HCL 67354662448 No Longer Active Arie Casper MD Active LOMOTIL 2.5-0.025 MG ORAL TABLET 1 to 2 four times a day as needed for diarrhea DIPHENOXYLATE-ATROPINE 35217033531 No Longer Active Fozia Casper MD Active MACROBID 100 MG ORAL CAPSULE 1 cap by mouth twice daily NITROFURANTOIN MONOHYD MACRO 54370296205 No Longer Active Arie Casper MD Active ZYRTEC ALLERGY 10 MG ORAL CAPSULE 1 po qd CE TIRIZINE HCL 62489083995 No Longer Active Arie Casper MD Active AZITHROMYCIN 250 MG ORAL TABLET 2 po qd x 1 day, then 1 po q d x 4 days AZITHROMYCIN 35500216435 No Longer Active Jessica salgado APRN Active PREDNISONE 20 MG ORAL TABLET 2 tabs daily for 3 days, 1 tab daily for 3 days, 1/2 tab daily for 2 days PREDNISONE 14899505471 No Longer Active Jessica Heaton APRN Active PROMETHAZINE HCL 25 MG ORAL TABLET 1 four times a day as nee ded for vomiting PROMETHAZINE HCL 49380552440 No Longer Active Myrna Roberto MD Active BACTRIM DS 800-160 MG ORAL TABLET 1 twice a day 05/30 SULFAMETHOXAZOLE-TRIMETHOPRIM 88954514650 No Longer Active Myrna Roberto MD Active VICKS DAYQUIL SEVERE COLD/FLU TABLET 1 tab every 6 hours prn 201 02/22/17 [id number]-APAP TABS 37255450572 No Longer Active Chris Roberto MD Active GUAIFENESIN-CODEINE 100-10 MG/5ML ORAL SYRUP 2 tsp every 6 hours prn GUAIFENESIN-CODEINE 46865381744 No Longer Active Myrna Roberto MD Active NAPROXEN 500 MG ORAL TABLET one tab PO BID NAPR OXEN 93854727893 No Longer Active Myrna Roberto MD Active AUGMENTIN 875-125 MG ORAL TABLET 1 tab by mouth twice daily with food AMOXICILLIN-POT CLAVULANATE 90951263865 No Longer Act zaid Liliana Estrada MD PhD Active AMOXICILLIN 500 MG ORAL CAPSULE 1 tab by mouth 3 times daily 201 02/21/05 AMOXICILLIN 21231387907 No Longer Active Liliana Estrada MD PhD Active TESSALON PERLES 100 MG ORAL CAPSULE 1 tablet by mouth 3 times da cory BENZONATATE 94598140942 No Longer Active Liliana Estrada MD PhD Active FLAGYL 500 MG ORAL TABLET 1 tablet by mouth two times daily 2014 METRONIDAZOLE 36674927156 No Longer Active Nilam Raida Ac tive ZITHROMAX 250 MG ORAL TABLET 2 po today, then 1 po q days 2-5 20 06/08/16 AZITHROMYCIN 75881897518 No Longer Active Arie Casper MD Active VITAMINS 0.8 MG ORAL TABLET take 1 tab po qday [id number] 80984919073 No Longer Active Arie Casper MD Active IBUPROFEN 800 MG ORAL TABLET take one po Q 8 hours 201 02/01/16 IBUPROFEN 14687564519 No Longer Active Arie Casper MD Acti ve [facility] TUSSIN COUGH/COLD CF 5-10-100 MG/5ML ORAL LIQUID 2 teasp oons every 4 hours [id number] 58130994523 No Longer Active Blaine Casper MD Active COMTREX COLD/COUGH DAY/NITE MS 5-2-10-325 MG ORAL 2 caps deja ry 4 hours SARYIBDVY-[id number]-APAP 15691810549 No Longer Active Da aleksandra Casper MD Active CHLORASEPTIC MAX SORE THROAT 15-10 MG MOUTH/THROAT LOZENGE 1 every 2 hours prn BENZOCAINE-MENTHOL 25499772451 No Longer Active Arie Casper MD Active PREDNISONE 20 MG ORAL TABLET 2 tabs daily for 3 days, 1 tab daily for 3 days, 1/2 tab daily for 2 days PREDNISONE 74743297711 No Longer Active Jose Zhong MD Active AZITHROMYCIN 250 MG ORAL TABLET 2 po qd x 1 day, then 1 po q d x 4 days AZITHROMYCIN 57425564160 No Longer Active Jose Mcwilliams MD Active ZOFRAN ODT 4 MG ORAL TABLET DISINTEGRATING 1 po q6hr PRN Nausea ONDANSETRON 10085917071 No Longer Active Rich Rosales MD Active ZOFRAN 4 MG ORAL TABLET 1 tablet every 4 hours ONDANSETRON HCL 51054376058 No Longer Active Rich Rosales MD Activ e MUCINEX 600 MG ORAL TABLET EXTENDED RELEASE 12 HOUR Ta ke 1-2 tablets every 12 hours GUAIFENESIN 22635615040 No Longer Active Rich Rosales MD Active BACTRIM 400-80 MG ORAL TABLET take one po BID SULFAMETHOXAZOLE-TRIMETHOPRIM 40726617992 No Longer Active Abelardo HERNANDEZ Active AZITHROMYCIN 500 MG ORAL TABLET 1 PO q day x 6 days 03/02/23 AZITHROMYCIN 75693288122 No Longer Active Tin HERNANDEZ Activ e ZITHROMAX 250 MG ORAL TABLET 2 po today, then 1 po q days 2-5 20 10/03/08 AZITHROMYCIN 63641189183 No Longer Active Arie Casper MD Active ZITHROMAX 250 MG ORAL TABLET 2 po today, then 1 po q days 2-5 20 09/23/25 AZITHROMYCIN 73812345437 No Longer Active Arie Casper MD Active AMOXICILLIN 500 MG ORAL CAPSULE 1 tab by mouth 3 times daily 201 11/24/09 AMOXICILLIN 47674171170 No Longer Active Arie Casper MD Active BACTRIM DS 800-160 MG ORAL TABLET 1 tab by mouth twice daily 201 11/03/14 TRIMETHOPRIM-SULFAMETHOXAZOLE 90641204720 No Longer Active Fozia Casper MD Active AMOXICILLIN 500 MG ORAL TABLET take 1 tab po TID 08/05 AMOXICILLIN 53428917096 No Longer Active Arie Casper MD Acti ve BACTRIM DS 800-160 MG ORAL TABLET 1 tab by mouth twice daily 201 11/03/14 BACTRIM DS 800-160 MG ORAL TABLET 674187 TRIMETHOPRIM-SULFAMETHOXAZOLE Inactive MUCINEX 600 MG ORAL TABLET EXTENDED RELEASE 12 HOUR Ta ke 1-2 tablets every 12 hours MUCINEX 600 MG ORAL TABLET EXTENDED RELEA SE 12 HOUR GUAIFENESIN Inactive ZOFRAN 4 MG ORAL TABLET 1 tablet every 4 hours ZOFRAN 4 MG ORAL TABLET 579766 ONDANSETRON HCL Inactive ZOFRAN ODT 4 MG [...] COLD/COUGH DAY/NITE MS 5-2-10-325 MG ORA L [id number] Inactive [facility] TUSSIN COUGH/COLD CF 5-10-100 MG/5ML ORAL LIQUID 2 teasp oons every 4 hours [facility] TUSSIN COUGH/COLD CF 5-10-100 MG/5ML ORAL LI QUID [id number] Inactive IBUPROFEN 800 MG ORAL TABLET take one po Q 8 hours 201 02/01/16 IBUPROFEN 800 MG ORAL TABLET 659677 IBUPROFEN Inactive VITAMINS 0.8 MG ORAL TABLET take 1 tab po qday VITAMINS 0.8 MG ORAL TABLET [id number] E-FA Inactive TESSALON PERLES 100 MG ORAL CAPSULE 1 tablet by mouth 3 times da cory TESSALON PERLES 100 MG ORAL CAPSULE 126015 BENZONATATE Inactive AMOXICILLIN 500 MG ORAL CAPSULE 1 tab by mouth 3 times daily 201 02/21/05 AMOXICILLIN 500 MG ORAL CAPSULE 028919 AMOXICILLIN Inactive GUAIFENESIN-CODEINE 100-10 MG/5ML ORAL SYRUP 2 tsp every 6 hours prn GUAIFENESIN-CODEINE 100-10 MG/5ML ORAL SYRUP 113078 GUAIFENESIN-CODEINE Inactive VICKS DAYQUIL SEVERE COLD/FLU TABLET 1 tab every 6 hours prn 201 02/22/17 VICKS DAYQUIL SEVERE COLD/FLU TABLET PHENYLEPHRI [id number]-CM-[id number]-APAP TABS Inactive BACTRIM DS 800-160 MG ORAL TABLET 1 twice a day 05/30 BACTRIM DS 800-160 MG ORAL TABLET 582318 SULFAMETHOXAZOLE-TRIMETHOPRIM Inactiv e PROMETHAZINE HCL 25 MG ORAL TABLET 1 four times a day as nee ded for vomiting PROMETHAZINE HCL 25 MG ORAL TABLET 957715 PROMETHAZINE HCL Inactive ZYRTEC ALLERGY 10 MG ORAL CAPSULE 1 po qd ZYRTEC ALLERGY 10 MG ORAL CAPSULE CETIRIZINE HCL Inactive MACROBID 100 MG ORAL CAPSULE 1 cap by mouth twice daily MACROBID 100 MG ORAL CAPSULE 0219496 NITROFURANTOIN MONOHYD MACRO In active LOMOTIL 2.5-0.025 MG ORAL TABLET 1 to 2 four times a day as needed for diarrhea LOMOTIL 2.5-0.025 MG ORAL TABLET 7299076 DIPHENOXYLATE-ATROPINE Inactive CYCLOBENZAPRINE HCL 10 MG ORAL TABLET 1/2 - 1 tablet b y mouth three times daily as needed for muscle spasm/pain CYCLOBEN ZAPRINE HCL 10 MG ORAL TABLET 576183 CYCLOBENZAPRINE HCL Inactive AMOXICILLIN 500 MG ORAL TABLET 2 tabs twice a day for 10 days 07/09/11 AMOXICILLIN 500 MG ORAL TABLET 186815 AMOXICILLIN I nactive LOMOTIL 2.5-0.025 MG ORAL TABLET 1 to 2 four times a day as needed for diarrhea LOMOTIL 2.5-0.025 MG ORAL TABLET 3436476 DIPHENOXYLATE-ATROPINE Inactive ZOFRAN 4 MG ORAL TABLET 1 TAB PO Q 6 HRS PRN NAUSEA 07/10/15 ZOFRAN 4 MG ORAL TABLET 961933 ONDANSETRON HCL Inactive CITRATE OF MAGNESIA ORAL SOLUTION 1 bottle today for constipatio n CITRATE OF MAGNESIA ORAL SOLUTION 9381120 MAGNESIUM CITR ATE Inactive PROMETHAZINE HCL 12.5 MG ORAL TABLET 1 tablet by mouth every 6 hours as needed for nausea/vomiting PROMETHAZINE HCL 12.5 MG ORA L TABLET 785835 PROMETHAZINE HCL Inactive PREDNISONE 20 MG ORAL TABLET 1 tablet twice daily for 2 days, then 1 tablet once daily for 2 days PREDNISONE 20 MG ORAL TABLET 777732 PREDNISONE Inactive ALPRAZOLAM 0.25 MG ORAL TABLET 1 tablet by mouth every 8 hours as needed for stress ALPRAZOLAM 0.25 MG ORAL TABLET 776781 ALPRA ZOLAM Inactive FLONASE 50 MCG/ACT NASAL SUSPENSION 1 spray each nostr il twice daily for allergies and runny nose until gone FLON ASE 50 MCG/ACT NASAL SUSPENSION FLUTICASONE PROPIONATE Inactive PREDNISONE 20 MG ORAL TABLET 1 tablet daily for airway inflammat ion PREDNISONE 20 MG ORAL TABLET 503595 PREDNISONE [place] ctive NAPROXEN 500 MG ORAL TABLET Take 1 tab BID NAPROXEN 500 MG ORAL TABLET 391074 NAPROXEN Inactive ZOLOFT 50 MG ORAL TABLET 1 tablet by mouth daily 12/08 ZOLOFT 50 MG ORAL TABLET 482400 SERTRALINE HCL Inactive LOMOTIL 2.5-0.025 MG ORAL TABLET 1 tab po four times a day as needed for diarrhea LOMOTIL 2.5-0.025 MG ORAL TABLET 0072608 DIPHENOXYLATE-ATROPINE Inactive CETIRIZINE HCL 10 MG ORAL TABLET 1 po qd PRN Allergies CETIRIZINE HCL 10 MG ORAL TABLET 6029844 CETIRIZINE HCL Inactiv e TUSSIONEX PENNKINETIC ER 10-8 MG/5ML ORAL SUSPENSION E XTENDED RELEASE 5ml po q12hr PRN Cough TUSSIONEX PENNKINETI C ER 10-8 MG/5ML ORAL SUSPENSION EXTENDED RELEASE HYDROCOD POLST-CHLORPHEN POLST I nactive NEXPLANON IMPLANT right arm subcutaneously NEXPLANON IMPLANT ETONOGESTREL IMPL Inactive PROTONIX 40 MG ORAL TABLET DELAYED RELEASE 1 po q a.m. PROTONIX 40 MG ORAL TABLET DELAYED RELEASE 063551 PANTOPRAZOLE SODI UM Inactive CHERATUSSIN AC 100-10 MG/5ML ORAL SYRUP 1 tsp by mouth every 4 hours as needed for cough CHERATUSSIN AC 100-10 MG/5ML ORAL SYRUP 9 81231 GUAIFENESIN-CODEINE Inactive GUAIFENESIN DM 400-20 MG ORAL [...] tid K EFLEX 500 MG ORAL CAPSULE 241665 CEPHALEXIN Inactive DIFLUCAN 100 MG ORAL TABLET 1 tablet by mouth daily, R EPEAT 2ND DOSE IN 7 DAYS IF STILL SYMPTOMATIC DIFLUCAN 100 MG ORAL TABLET 58957 8 FLUCONAZOLE Inactive PROTONIX 40 MG ORAL TABLET DELAYED RELEASE 1 pill by m outh daily, for acid reflux PROTONIX 40 MG ORAL TABLET DELAYED RELEAS E 800211 PANTOPRAZOLE SODIUM Inactive ALPRAZOLAM 0.25 MG ORAL TABLET 1 tablet by mouth twice a day as needed for stress/anxiety ALPRAZOLAM 0.25 MG ORAL TABLET 092267 ALPRAZOLAM Inactive ESCITALOPRAM OXALATE 10 MG ORAL TABLET take 1 tab po qhs for mod ESCITALOPRAM OXALATE 10 MG ORAL TABLET 989040 ESCITALOP JO OXALATE Inactive UNISOM SLEEPTABS 25 MG ORAL TABLET one tab PO qhs 2018 UNISOM SLEEPTABS 25 MG ORAL TABLET DOXYLAMINE SUCCINATE (SLEEP) [place] ctive PYRIDOXINE HCL 25 MG ORAL TABLET one tab PO 3-4 times per day 20 12/12/17 PYRIDOXINE HCL 25 MG ORAL TABLET 5778424 PYRIDOXINE HCL Inactive AMOXICILLIN 500 MG ORAL TABLET take 1 tab po TID 08/05 AMOXICILLIN 500 MG ORAL TABLET 810174 AMOXICILLIN Inactive AMOXICILLIN 500 MG ORAL CAPSULE 1 tab by mouth 3 times daily 201 11/24/09 AMOXICILLIN 500 MG ORAL CAPSULE 137676 AMOXICILLIN Inactive ZITHROMAX 250 MG ORAL TABLET 2 po today, then 1 po q days 2-5 20 09/23/25 ZITHROMAX 250 MG ORAL TABLET 531833 AZITHROMYCIN [place] ctive ZITHROMAX 250 MG ORAL TABLET 2 po today, then 1 po q days 2-5 20 10/03/08 ZITHROMAX 250 MG ORAL TABLET 881811 AZITHROMYCIN [place] ctive AZITHROMYCIN 500 MG ORAL TABLET 1 PO q day x 6 days 03/02/23 AZITHROMYCIN 500 MG ORAL TABLET 213250 AZITHROMYCIN Inactive BACTRIM 400-80 MG ORAL TABLET take one po BID BACTRIM 400- 80 MG ORAL TABLET 753181 SULFAMETHOXAZOLE-TRIMETHOPRIM Inactive AZITHROMYCIN 250 MG ORAL TABLET 2 po qd x 1 day, then 1 po q d x 4 days AZITHROMYCIN 250 MG ORAL TABLET 420943 AZITHROMY ALLISON Inactive PREDNISONE 20 MG ORAL TABLET 2 tabs daily for 3 days, 1 tab daily for 3 days, 1/2 tab daily for 2 days PREDNISONE 20 MG ORAL T ABLET 304392 PREDNISONE Inactive ZITHROMAX 250 MG ORAL TABLET 2 po today, then 1 po q days 2-5 20 06/08/16 ZITHROMAX 250 MG ORAL TABLET 475924 AZITHROMYCIN [place] ctive FLAGYL 500 MG ORAL TABLET 1 tablet by mouth two times daily 2014 FLAGYL 500 MG ORAL TABLET 191160 METRONIDAZOLE Inacti ve AUGMENTIN 875-125 MG ORAL TABLET 1 tab by mouth twice daily with food AUGMENTIN 875-125 MG ORAL TABLET AMOXICIL ELSA-POT CLAVULANATE Inactive NAPROXEN 500 MG ORAL TABLET one tab PO BID NAPROXEN 500 MG ORAL TABLET 102853 NAPROXEN Inactive PREDNISONE 20 MG ORAL TABLET 2 tabs daily for 3 days, 1 tab daily for 3 days, 1/2 tab daily for 2 days PREDNISONE 20 MG ORAL T ABLET 068177 PREDNISONE Inactive AZITHROMYCIN 250 MG ORAL TABLET 2 po qd x 1 day, then 1 po q d x 4 days AZITHROMYCIN 250 MG ORAL TABLET 794791 AZITHROMY ALLISON Inactive PREDNISONE 20 MG ORAL TABLET 2 tabs daily for 3 days, 1 tab daily for 3 days, 1/2 tab daily for 2 days PREDNISONE 20 MG ORAL T ABLET 342518 PREDNISONE Inactive ZITHROMAX Z-EMIL 250 MG ORAL TABLET 2 today, then 1 daily for 4 d ays ZITHROMAX Z-EMIL 250 MG ORAL TABLET 388194 AZITHROMYCIN Inactive CEFDINIR 300 MG ORAL CAPSULE [...] days PREDNISONE 20 MG ORAL T ABLET 811099 PREDNISONE Inactive BACTRIM DS 800-160 MG ORAL TABLET 1 tab by mouth twice daily 201 05/02/30 BACTRIM DS 800-160 MG ORAL TABLET 471332 TRIMETHOPRIM-SULFAMETHOXAZOLE Inactive ZITHROMAX Z-EMIL 250 MG ORAL TABLET 2 today, then 1 daily for 4 d ays ZITHROMAX Z-EMIL 250 MG ORAL TABLET 698373 AZITHROMYCIN Inactive TAMIFLU 75 MG ORAL CAPSULE 1 po BID x 5 days 0 TAMIFLU 75 MG ORAL CAPSULE 973328 OSELTAMIVIR PHOSPHATE Inactive CEFDINIR 300 MG ORAL CAPSULE 1 po BID x 10 days 01/03 CEFDINIR 300 MG ORAL CAPSULE 20030127 CEFDINIR Inactive ZITHROMAX Z-EMIL 250 MG TABS Take two tablets today and then 1 tablet daily for 4 days ZITHROMAX Z-EMIL 250 MG TABS 728511 AZITHROM YCIN Inactive AMOXICILLIN 875 MG ORAL TABLET 1 tab by mouth twice daily AMOXICILLIN 875 MG ORAL TABLET 413507 AMOXICILLIN Inactive CIPROFLOXACIN HCL 250 MG TABS Take 1 twice a day for 5 days for bladder infection CIPROFLOXACIN HCL 250 MG TABS 056493 CIPROFLOXACIN HCL Inactive TIZANIDINE HCL 4 MG ORAL TABLET Take one tablet by michael th every 8 hours as needed for muscle spasm TIZANIDINE HCL 4 MG ORAL TABLET 84969 3 TIZANIDINE HCL Inactive Advance Directives Directive [...] 11 .0-15.0 platelet count 280 THOUSAND/UL 10*3/mm3 909-947 7736/02/18 mean platelet volume 11.6 fL 7.5-12.5 Lab [...] 11 .6-14.8 platelet count 245 10^3/MM^3 10*3/mm3 206-409 4370/09/27 hemoglobin, blood 12.2 g/dL 12.0-16.0 hematocrit, blood 39.1 % 37.0-47.0 mean corpuscular volume, RBC 82 fL 80-97 mean corpuscular hemoglobin, RBC 25.6 pg 27. 0-31.2 mean corpuscular hemoglobin concentration, RBC 31.2 G/DL % 31.8-35.4 red blood cell distribution width 12.5 % 11 .6-14.8 platelet count 297 10^3/MM^3 10*3/mm3 677-507 0285/09/27 erythrocyte (RBC) count 4.77 10^6/MM^3 10*6/mm3 3.80-5.8 0 lymphocytes as percent of blood leukocytes 29.2 % 20.5-51.1 monocytes as percent of blood leukocytes 9.7 % 1.7-9.3 neutrophils as percent of blood leukocytes 55.9 % 42.2-75.2 leukocyte count, blood 7.6 10^3/MM^3 10*3/mm3 4.6-10.2 Lab Report: Comp. Metabolic Panel, Thyro id Stimulating Hormone (L) - Chemistry sodium, serum 138 mmol/L 126-752 2308/04/11 carbon dioxide, venous blood 27.1 mmol/L 21.0-32 [...] mg/dL Encounters Code Encounter Date Provider Facility CPT-13439 Level 3 Est. Patient 16:14:18 [facility] 4 Est[facility] Patient 16:18:17 [employer] Myrna maldonado MD [facility] CPT-04037 Level 4 Est. Patient 16:39:44 [employer] Jose Zhong MD [facility] CPT-75334 [id number] Vst-Est Level IV 13:45:[address] Tali Devi PA-C [facility] CPT-96030 [id number] Vst-Est Level III 09:41:31 CDT Arie Casper MD [facility] CPT-69228 [id number] Vst-Est Level III 18:20:11 CDT Me lobito Russ [facility] CPT-47793 11486-Nes Vst-Est Level III 17:21:41 CDT Me lobito Russ [facility] CPT-18992 11030-Dnk Vst-Est Level IV 13:30:22 C NIC Casper MD [facility] CPT-21656 Level 4 Est. Patient 13:05:26 CDT Myrna Real Bernabe maldonado MD [facility]-90009 30956-Rmg Vst-Est Level IV 20:50:21 C NIC Casper MD [facility] CPT-66109 Level 3 Est. Patient 11:49:34 [employer] Jessica boyd [facility] CPT-16465 Level 3 Est. Patient 14:55:50 [employer] Jose Zhong MD [facility] CPT-05260 Level 3 Est. Patient 10:21:41 VP [employer] Arie mcqueen MD [facility] CPT-12152 Level 3 Est. Patient 11:35:15 VP [employer] Arie mcqueen MD [facility] CPT-19268 Level 3 Est. Patient 15:40:28 CDT Brii Are [facility] CPT-08521 Level 3 Est. Patient 16:40:36 CDT Arie mcqueen MD [facility] CPT-13547 Level 4 Est. Patient 15:29:22 VP [employer] Arie mcqueen MD [facility] CPT-68165 Level 3 Est. Patient 15:18:16 VP [employer] Jono black DO [facility] CPT-67997 Level 4 Est. Patient 12:08:40 VP [employer] Brii Are ll [facility] CPT-50722 Level 3 Est. Patient 09:24:42 CDT Brii Are [facility] CPT-73837 Level 3 Est. Patient 09:12:56 CDT Arie mcqueen MD [facility] CPT-18700 Level 3 Est. Patient 16:40:54 CDT Jose Zhong MD [facility] CPT-71797 Level 2 Est. Patient 13:01:13 CDT Brii Yepez ll [employer] RESEARCH ASSISTANT [facility] CPT-12381 Level 3 Est. Patient 11:55:30 VP [employer] Jono black DO [facility] CPT-04722 Level 3 Est. Patient 09:52:36 VP [employer] Brii Yepez ll SOCIOLOGY RESEARCH ASSISTANT [facility] CPT-25674 Level 3 Est. Patient 16:25:33 VP [employer] Rich Rosales MD [facility] CPT-84871 Level 3 Est. Patient 20:33:55 CDT Arie mcqueen MD [facility] CPT-36009 Level 3 Est. Patient 14:18:20 CDT Rich Rosales MD [facility] CPT-74096 Level 4 Est. Patient 09:34:31 CDT Arie mcqueen MD [facility] CPT-71946 Level 3 Est. Patient 09:08:55 [employer] Liliana vincent MD PhD [facility] CPT-41329 Level 3 Est. Patient 16:44:07 [employer] Arie mcqueen MD [facility] CPT-24574 Level 3 Est. Patient 10:44:27 CDT Arie mcqueen MD [facility] CPT-01523 Level 3 Est. Patient 08:55:41 CDT Jose Zhong MD [facility] CPT-84615 Level 3 Est. Patient 18:37:31 CDT Lliiana vincent MD PhD [facility] CPT-26595 Level 3 Est. Patient 14:28:23 CDT Abelardo HERNANDEZ [facility] CPT-97085 Level 3 Est. Patient 15:18:13 [employer] Arie mcqueen MD [facility] CPT-61902 Level 3 Est. Patient 10:11:29 [employer] Arie mcqueen MD [facility] CPT-72049 Level 3 Est. Patient 10:55:57 [employer] Jono black DO [facility] CPT-51585 Level 3 Est. Patient 17:29:05 CDT Arie mcqueen MD [facility] Procedures Code Procedure Name Date Entry Date Standard Desc ription CPT-39519 Venipuncture Draw Fee 17:00:58 CDT CPT-EVST Evisit 13:43:28 CDT CPT-57198 Sono OB transvag XRAY USE ONLY 17:12:53 CS T CPT-04454 Sono OB transvag XRAY USE ONLY 17:11:12 CS T CPT-51490 UHCG Urine - MARC ONLY 12:13:59 [employer] 12/11 CPT-54928 Spec Collection and Handling Fee 12:13:[address] CPT-83486 Visit 12:13:59 [employer] CPT-17890 First Vx - Ix admin via ID I M or jet injects without counseling by physician 13:00:15 [employer] CPT-68808 Flulaval Intramuscular Injectable 13:00:15 [employer] CPT-09610 Urine Dip (Floor Use Only) 12:20:20 [employer] 201 06/03/24 CPT-64493 Sono Soft Tissue Head and Neck - XRAY US E ONLY 17:10:14 CDT CPT-16474 Ear Wash with irrigation 17:21:41 CDT 07/04 CPT-86243 Nexplanon Removal 15:40:28 CDT CPT-69100 Sono transvag pelvis non OB uterus ovari es cervix - XRAY USE ONLY 08:58:14 [employer] CPT-42411 UA w micro - LAB USE ONLY 16:04:56 [employer] 2015 CPT-50856 Wet Prep/GEN - LAB USE ONLY 16:04:56 [employer] 20 08/10/29 CPT-18962 First Vx - Ix admin via ID I M or jet injects without counseling by physician 16:57:10 CDT CPT-10496 Fluzone Preservative Free Intramuscular Suspension 16:57:10 CDT CPT-J0696 Rocephin 1000 mg (Ceftriaxone) 11:49:23 CDT CPT-J1040 Depo Medrol 80 mg (Methyl Prednisolone A cetate) 11:49:23 CDT CPT-J1100 Decadron 8mg (Dexamethasone) 11:49:23 CDT 2 CPT-30610 Abx/Therapy Injection 11:49:23 CDT CPT-67451 Abx/Therapy Injection 11:49:23 CDT CPT-64878 Abd compl w upright 09:07:26 [employer] CPT-56762 Ear Wash 16:12:47 [employer] CPT-OV Office Visit 11:12:01 CDT CPT-OV Office Visit 15:30:23 CDT CPT-49086 Sono pelvis non OB uterus ovaries cervix 15:50:44 CDT CPT-12345 Hand comp min 3V 16:42:32 CDT CPT-00825 Abd compl w upright 12:17:01 CDT CPT-62602 Nexplanon Placement 15:07:39 [employer] CPT-00726 Removal of IUD 15:07:39 [employer] CPT-50544 TB Tubersol 12:09:32 CDT CPT-14947 TB Tubersol 13:55:43 CDT
--- OUTSIDE RECORDS SUMMARY | 2020-03-03 07:23 | XMS REPORT | Clinical Summary ---
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 Brii MARROQUIN RN Conditions [...] Urinary frequency 788.41 Inactive Roseann Crawford [facility] Urinary frequency Urinary frequency 788.41 Resolved Jose [...] Vaccination for Prophylaxis V04.81 Inactive Brii Russ [employer] Need for prophylactic vaccin ation and inoculation [...] Acute cystitis Cervicalgia 723.1 Active Olga Sheridan [employer]-C Cervicalgia Encounter for examination and observatio n [...] 2018 Pelvic pain, acute ICD-789.09 Inactive Jose Zhogn MD Vaginal pruritus ICD-698.1 Inactive Jose Mcwilliams [...] as needed for muscle spasm TIZANIDINE HCL 17391890922 No Longer Active Olga Sheridan APRN-C Active PYRIDOXINE HCL 25 MG ORAL TABLET one tab PO 3-4 times per day 12/12/17 PYRIDOXINE HCL 65060069748 No Longer Active Olga Sheridan [employer]-C Active UNISOM SLEEPTABS 25 MG ORAL TABLET one tab PO qhs 2018 DOXYLAMINE SUCCINATE (SLEEP) 66879831799 No Longer Active Olga Sheridan APR N-C Active CIPROFLOXACIN HCL 250 MG TABS Take 1 twice a day for 5 days for bladder infection CIPROFLOXACIN HCL 36749306783 No Longer Active Arie Casper MD Active TYLENOL 325 MG ORAL CAPSULE PRN ACETAMINOPHEN 000 33863669 Active Brii Pacheco Active ESCITALOPRAM OXALATE 10 MG ORAL TABLET take 1 tab po qhs for mod ESCITALOPRAM OXALATE 24599382159 No Longer Active Brii Pacheco Active ALPRAZOLAM 0.25 MG ORAL TABLET 1 tablet by mouth twice a day as needed for stress/anxiety ALPRAZOLAM 52390876698 No Longer Active Brii Pacheco Active PROTONIX 40 MG ORAL TABLET DELAYED RELEASE 1 pill by [facility] daily, for acid reflux PANTOPRAZOLE SODIUM 90317285870 No Longer Activ e Brii Pacheco Active DIFLUCAN 100 MG ORAL TABLET 1 tablet by mouth daily, R EPEAT 2ND DOSE IN 7 DAYS IF STILL SYMPTOMATIC FLUCONAZOLE 18919610205 No Long er Active Nilam Weber Active KEFLEX 500 MG ORAL CAPSULE 1 po tid CEPHALEXI N 89684827447 No Longer Active Tali Devi PA-C Active CONCEPT DHA 53.5-38-1 MG ORAL CAPSULE 1 tablet daily [id number] 3 14227861900 Active Oxana Souza LPN Active AMOXICILLIN 875 MG ORAL TABLET 1 tab by mouth twice daily 1 AMOXICILLIN 16941021225 No Longer Active Brii Russ [employer] Active TUSSIONEX PENNKINETIC ER 10-8 MG/5ML ORAL SUSPENSION E XTENDED RELEASE 5ml po q12hr PRN Cough HYDROCOD POLST-CHLORPHEN POLST 5 5006641763 No Longer Active Myrna Roberto MD Active ZITHROMAX Z-EMIL 250 MG TABS Take two tablets today and then 1 tablet daily for 4 days AZITHROMYCIN 23108414554 No Longer Active Flaco Rosales MD Active GUAIFENESIN DM 400-20 MG ORAL TABLET 1 pill by mouth t wice daily, if needed for cough DEXTROMETHORPHAN-GUAIFENESIN 35399004592 No Longer Active Rich Rosales MD Active CEFDINIR 300 MG ORAL CAPSULE 1 po BID x 10 days CEFDINIR 60950842533 No Longer Active Jessica Heaton APRN Active CHERATUSSIN AC 100-10 MG/5ML ORAL SYRUP 1 tsp by mouth every 4 hours as needed for cough GUAIFENESIN-CODEINE 35732100157 No Longe r Active Waynekaruna Marcellnaomi [employer] Active TAMIFLU 75 MG ORAL CAPSULE 1 po BID x 5 days 0 OSELTAMIVIR PHOSPHATE 99623198931 No Longer Active Jose Zhong MD Activ e ZITHROMAX Z-EMIL 250 MG ORAL TABLET 2 today, then 1 daily for 4 d ays AZITHROMYCIN 15103156396 No Longer Active Arie Casper MD Active PROTONIX 40 MG ORAL TABLET DELAYED RELEASE 1 po q a.m. PANTOPRAZOLE SODIUM 08028759613 No Longer Active Arie Casper MD Active BACTRIM DS 800-160 MG ORAL TABLET 1 tab by mouth twice daily 201 05/02/30 TRIMETHOPRIM-SULFAMETHOXAZOLE 10019572481 No Longer Active R KELLIE Sandoval Active NEXPLANON IMPLANT right arm subcutaneously ETONOGESTREL IMPL 00808347293 No Longer Active Brii Russ [employer] Active TUSSIONEX PENNKINETIC ER 10-8 MG/5ML ORAL SUSPENSION E XTENDED RELEASE 5ml po q12hr PRN Cough HYDROCOD POLST-CHLORPHEN POLST 5 9711991082 No Longer Active Brii Russ [employer] Active CETIRIZINE HCL 10 MG ORAL TABLET 1 po qd PRN Allergies CETIRIZINE HCL 96540942715 No Longer Active Brii Russ APRN Activ e PREDNISONE 20 MG ORAL TABLET 2 tabs daily for 3 days, 1 tab daily for 3 days, 1/2 tab daily for 2 days PREDNISONE 36618340128 No Longer Active Arie Casper MD Active LOMOTIL 2.5-0.025 MG ORAL TABLET 1 tab po four times a day as needed for diarrhea DIPHENOXYLATE-ATROPINE 62386315402 No Lo nger Active Arie Casper MD Active ZOLOFT 50 MG ORAL TABLET 1 tablet by mouth daily 12/08 SERTRALINE HCL 38146369847 No Longer Active Arie Casper MD Ac tive NAPROXEN 500 MG ORAL TABLET Take 1 tab BID NAPR OXEN 30994067596 No Longer Active Arie Casper MD Active CEFDINIR 300 MG ORAL CAPSULE 1 po BID x 10 days CEFDINIR 42920849319 No Longer Active Brii Russ APRN Active PREDNISONE 20 MG ORAL TABLET 1 tablet daily for airway inflammat ion PREDNISONE 85713787385 No Longer Active Brii Russ APRN A ctive CEFDINIR 300 MG ORAL CAPSULE 1 po BID x 10 days CEFDINIR 52914522500 No Longer Active Jono Gagnon DO Active FLONASE 50 MCG/ACT NASAL SUSPENSION 1 spray each nostr il twice daily for allergies and runny nose until gone FLUT ICASONE PROPIONATE 11873150928 No Longer Active Jono Gagnon DO Active ALPRAZOLAM 0.25 MG ORAL TABLET 1 tablet by mouth every 8 hours as needed for stress ALPRAZOLAM 72659953731 No Longer Active Joon Gagnon DO Active ZITHROMAX Z-EMIL 250 MG ORAL TABLET 2 today, then 1 daily for 4 d ays AZITHROMYCIN 59746211086 No Longer Active Arie Casper MD Active PREDNISONE 20 MG ORAL TABLET 2 tabs daily for 3 days, 1 tab daily for 3 days, 1/2 tab daily for 2 days PREDNISONE 09696151224 No Longer Active Brii Russ APRN Active PREDNISONE 20 MG ORAL TABLET 1 tablet twice daily for 2 days, then 1 tablet once daily for 2 days PREDNISONE 37011715210 No Longer Active Brii Russ APRN Active PROMETHAZINE HCL 12.5 MG ORAL TABLET 1 tablet by mouth every 6 hours as needed for nausea/vomiting PROMETHAZINE HCL 22479537519 No L onger Active Jono Gagnon DO Active CITRATE OF MAGNESIA ORAL SOLUTION 1 bottle today for constipatio n MAGNESIUM CITRATE 82223495828 No Longer Active Jono Gagnon DO Active ZOFRAN 4 MG ORAL TABLET 1 TAB PO Q 6 HRS PRN NAUSEA 20 07/10/15 ONDANSETRON HCL 86635640045 No Longer Active Brii Russ APRN Acti ve LOMOTIL 2.5-0.025 MG ORAL TABLET 1 to 2 four times a day as needed for diarrhea DIPHENOXYLATE-ATROPINE 61277197909 No Longer Active January Russ APRN Active AMOXICILLIN 500 MG ORAL TABLET 2 tabs twice a day for 10 days 07/09/11 AMOXICILLIN 42752185074 No Longer Active Brii Russ APRN Active CYCLOBENZAPRINE HCL 10 MG ORAL TABLET 1/2 - 1 tablet b y mouth three times daily as needed for muscle spasm/pain CYCLOBENZAPRINE HCL 54864928612 No Longer Active Arie Casper MD Active LOMOTIL 2.5-0.025 MG ORAL TABLET 1 to 2 four times a day as needed for diarrhea DIPHENOXYLATE-ATROPINE 02055456302 No Longer Active Fozia Casper MD Active MACROBID 100 MG ORAL CAPSULE 1 cap by mouth twice daily NITROFURANTOIN MONOHYD MACRO 19187495104 No Longer Active Arie Casper MD Active ZYRTEC ALLERGY 10 MG ORAL CAPSULE 1 po qd CE TIRIZINE HCL 51128397763 No Longer Active Arie Casper MD Active AZITHROMYCIN 250 MG ORAL TABLET 2 po qd x 1 day, then 1 po q d x 4 days AZITHROMYCIN 43868055516 No Longer Active Jessica salgado APRN Active PREDNISONE 20 MG ORAL TABLET 2 tabs daily for 3 days, 1 tab daily for 3 days, 1/2 tab daily for 2 days PREDNISONE 86612264643 No Longer Active Jessica Heaton APRN Active PROMETHAZINE HCL 25 MG ORAL TABLET 1 four times a day as nee ded for vomiting PROMETHAZINE HCL 47267979471 No Longer Active Myrna Roberto MD Active BACTRIM DS 800-160 MG ORAL TABLET 1 twice a day 05/30 SULFAMETHOXAZOLE-TRIMETHOPRIM 22876169581 No Longer Active Myrna Roberto MD Active VICKS DAYQUIL SEVERE COLD/FLU TABLET 1 tab every 6 hours prn 201 02/22/17 [id number]-APAP TABS 42596554073 No Longer Active Chris Roberto MD Active GUAIFENESIN-CODEINE 100-10 MG/5ML ORAL SYRUP 2 tsp every 6 hours prn GUAIFENESIN-CODEINE 84018435776 No Longer Active Myrna Roberto MD Active NAPROXEN 500 MG ORAL TABLET one tab PO BID NAPR OXEN 73750507511 No Longer Active Myrna Roberto MD Active AUGMENTIN 875-125 MG ORAL TABLET 1 tab by mouth twice daily with food AMOXICILLIN-POT CLAVULANATE 70940833578 No Longer Act zaid Liliana Estrada MD PhD Active AMOXICILLIN 500 MG ORAL CAPSULE 1 tab by mouth 3 times daily 201 02/21/05 AMOXICILLIN 76141954936 No Longer Active Liliana Estrada MD PhD Active TESSALON PERLES 100 MG ORAL CAPSULE 1 tablet by mouth 3 times da cory BENZONATATE 34290691930 No Longer Active Liliana Estrada MD PhD Active FLAGYL 500 MG ORAL TABLET 1 tablet by mouth two times daily 2014 METRONIDAZOLE 65355629141 No Longer Active Nilam Raida Ac tive ZITHROMAX 250 MG ORAL TABLET 2 po today, then 1 po q days 2-5 20 06/08/16 AZITHROMYCIN 84972462145 No Longer Active Arie Casper MD Active VITAMINS 0.8 MG ORAL TABLET take 1 tab po qday [id number] 60466935623 No Longer Active Arie Casper MD Active IBUPROFEN 800 MG ORAL TABLET take one po Q 8 hours 201 02/01/16 IBUPROFEN 82411295318 No Longer Active Arie Casper MD Acti ve [facility] TUSSIN COUGH/COLD CF 5-10-100 MG/5ML ORAL LIQUID 2 teasp oons every 4 hours [id number] 83964672553 No Longer Active Blaine Casper MD Active COMTREX COLD/COUGH DAY/NITE MS 5-2-10-325 MG ORAL 2 caps deja ry 4 hours [id number] 63984271600 No Longer Active Da aleksandra Casper MD Active CHLORASEPTIC MAX SORE THROAT 15-10 MG MOUTH/THROAT LOZENGE 1 every 2 hours prn BENZOCAINE-MENTHOL 25645552882 No Longer Active Arie Casper MD Active PREDNISONE 20 MG ORAL TABLET 2 tabs daily for 3 days, 1 tab daily for 3 days, 1/2 tab daily for 2 days PREDNISONE 05579536491 No Longer Active Jose Zhong MD Active AZITHROMYCIN 250 MG ORAL TABLET 2 po qd x 1 day, then 1 po q d x 4 days AZITHROMYCIN 26714970043 No Longer Active Jose Mcwilliams MD Active ZOFRAN ODT 4 MG ORAL TABLET DISINTEGRATING 1 po q6hr PRN Nausea ONDANSETRON 04016226286 No Longer Active Rich Rosales MD Active ZOFRAN 4 MG ORAL TABLET 1 tablet every 4 hours ONDANSETRON HCL 61453207012 No Longer Active Rich Rosales MD Activ e MUCINEX 600 MG ORAL TABLET EXTENDED RELEASE 12 HOUR Ta ke 1-2 tablets every 12 hours GUAIFENESIN 31055771755 No Longer Active Rich Rosales MD Active BACTRIM 400-80 MG ORAL TABLET take one po BID SULFAMETHOXAZOLE-TRIMETHOPRIM 28095519248 No Longer Active Abelardo HERNANDEZ Active AZITHROMYCIN 500 MG ORAL TABLET 1 PO q day x 6 days 03/02/23 AZITHROMYCIN 94930531703 No Longer Active Tin HERNANDEZ Activ e ZITHROMAX 250 MG ORAL TABLET 2 po today, then 1 po q days 2-5 20 10/03/08 AZITHROMYCIN 54085714793 No Longer Active Arie Casper MD Active ZITHROMAX 250 MG ORAL TABLET 2 po today, then 1 po q days 2-5 20 09/23/25 AZITHROMYCIN 64803379712 No Longer Active Arie Casper MD Active AMOXICILLIN 500 MG ORAL CAPSULE 1 tab by mouth 3 times daily 201 11/24/09 AMOXICILLIN 71595736689 No Longer Active Arie Casper MD Active BACTRIM DS 800-160 MG ORAL TABLET 1 tab by mouth twice daily 201 11/03/14 TRIMETHOPRIM-SULFAMETHOXAZOLE 04366787831 No Longer Active Fozia Casper MD Active AMOXICILLIN 500 MG ORAL TABLET take 1 tab po TID 08/05 AMOXICILLIN 01036835235 No Longer Active Arie Casper MD Acti ve BACTRIM DS 800-160 MG ORAL TABLET 1 tab by mouth twice daily 201 11/03/14 BACTRIM DS 800-160 MG ORAL TABLET 842008 TRIMETHOPRIM-SULFAMETHOXAZOLE Inactive MUCINEX 600 MG ORAL TABLET EXTENDED RELEASE 12 HOUR Ta ke 1-2 tablets every 12 hours MUCINEX 600 MG ORAL TABLET EXTENDED RELEA SE 12 HOUR GUAIFENESIN Inactive ZOFRAN 4 MG ORAL TABLET 1 tablet every 4 hours ZOFRAN 4 MG ORAL TABLET 851571 ONDANSETRON HCL Inactive ZOFRAN ODT 4 MG [...] COLD/COUGH DAY/NITE MS 5-2-10-325 MG ORA L [id number] Inactive [facility] TUSSIN COUGH/COLD CF 5-10-100 MG/5ML ORAL LIQUID 2 teasp oons every 4 hours [facility] TUSSIN COUGH/COLD CF 5-10-100 MG/5ML ORAL LI QUID [id number] Inactive IBUPROFEN 800 MG ORAL TABLET take one po Q 8 hours 201 02/01/16 IBUPROFEN 800 MG ORAL TABLET 553903 IBUPROFEN Inactive VITAMINS 0.8 MG ORAL TABLET take 1 tab po qday VITAMINS 0.8 MG ORAL TABLET [id number] E-FA Inactive TESSALON PERLES 100 MG ORAL CAPSULE 1 tablet by mouth 3 times da cory TESSALON PERLES 100 MG ORAL CAPSULE 262269 BENZONATATE Inactive AMOXICILLIN 500 MG ORAL CAPSULE 1 tab by mouth 3 times daily 201 02/21/05 AMOXICILLIN 500 MG ORAL CAPSULE 541230 AMOXICILLIN Inactive GUAIFENESIN-CODEINE 100-10 MG/5ML ORAL SYRUP 2 tsp every 6 hours prn GUAIFENESIN-CODEINE 100-10 MG/5ML ORAL SYRUP 404080 GUAIFENESIN-CODEINE Inactive VICKS DAYQUIL SEVERE COLD/FLU TABLET 1 tab every 6 hours prn 201 02/22/17 VICKS DAYQUIL SEVERE COLD/FLU TABLET PHENYLEPHRI [id number]-[id number]-APAP TABS Inactive BACTRIM DS 800-160 MG ORAL TABLET 1 twice a day 05/30 BACTRIM DS 800-160 MG ORAL TABLET 771978 SULFAMETHOXAZOLE-TRIMETHOPRIM Inactiv e PROMETHAZINE HCL 25 MG ORAL TABLET 1 four times a day as nee ded for vomiting PROMETHAZINE HCL 25 MG ORAL TABLET 523887 PROMETHAZINE HCL Inactive ZYRTEC ALLERGY 10 MG ORAL CAPSULE 1 po qd ZYRTEC ALLERGY 10 MG ORAL CAPSULE CETIRIZINE HCL Inactive MACROBID 100 MG ORAL CAPSULE 1 cap by mouth twice daily MACROBID 100 MG ORAL CAPSULE 8266420 NITROFURANTOIN MONOHYD MACRO In active LOMOTIL 2.5-0.025 MG ORAL TABLET 1 to 2 four times a day as needed for diarrhea LOMOTIL 2.5-0.025 MG ORAL TABLET 7002513 DIPHENOXYLATE-ATROPINE Inactive CYCLOBENZAPRINE HCL 10 MG ORAL TABLET 1/2 - 1 tablet b y mouth three times daily as needed for muscle spasm/pain CYCLOBEN ZAPRINE HCL 10 MG ORAL TABLET 309158 CYCLOBENZAPRINE HCL Inactive AMOXICILLIN 500 MG ORAL TABLET 2 tabs twice a day for 10 days 07/09/11 AMOXICILLIN 500 MG ORAL TABLET 581896 AMOXICILLIN I nactive LOMOTIL 2.5-0.025 MG ORAL TABLET 1 to 2 four times a day as needed for diarrhea LOMOTIL 2.5-0.025 MG ORAL TABLET 6023645 DIPHENOXYLATE-ATROPINE Inactive ZOFRAN 4 MG ORAL TABLET 1 TAB PO Q 6 HRS PRN NAUSEA 07/10/15 ZOFRAN 4 MG ORAL TABLET 062829 ONDANSETRON HCL Inactive CITRATE OF MAGNESIA ORAL SOLUTION 1 bottle today for constipatio n CITRATE OF MAGNESIA ORAL SOLUTION 4168282 MAGNESIUM CITR ATE Inactive PROMETHAZINE HCL 12.5 MG ORAL TABLET 1 tablet by mouth every 6 hours as needed for nausea/vomiting PROMETHAZINE HCL 12.5 MG ORA L TABLET 821708 PROMETHAZINE HCL Inactive PREDNISONE 20 MG ORAL TABLET 1 tablet twice daily for 2 days, then 1 tablet once daily for 2 days PREDNISONE 20 MG ORAL TABLET 890250 PREDNISONE Inactive ALPRAZOLAM 0.25 MG ORAL TABLET 1 tablet by mouth every 8 hours as needed for stress ALPRAZOLAM 0.25 MG ORAL TABLET 223170 ALPRA ZOLAM Inactive FLONASE 50 MCG/ACT NASAL SUSPENSION 1 spray each nostr il twice daily for allergies and runny nose until gone FLON ASE 50 MCG/ACT NASAL SUSPENSION FLUTICASONE PROPIONATE Inactive PREDNISONE 20 MG ORAL TABLET 1 tablet daily for airway inflammat ion PREDNISONE 20 MG ORAL TABLET 611263 PREDNISONE [place] ctive NAPROXEN 500 MG ORAL TABLET Take 1 tab BID NAPROXEN 500 MG ORAL TABLET 510015 NAPROXEN Inactive ZOLOFT 50 MG ORAL TABLET 1 tablet by mouth daily 12/08 ZOLOFT 50 MG ORAL TABLET 318752 SERTRALINE HCL Inactive LOMOTIL 2.5-0.025 MG ORAL TABLET 1 tab po four times a day as needed for diarrhea LOMOTIL 2.5-0.025 MG ORAL TABLET 5837977 DIPHENOXYLATE-ATROPINE Inactive CETIRIZINE HCL 10 MG ORAL TABLET 1 po qd PRN Allergies CETIRIZINE HCL 10 MG ORAL TABLET 5691804 CETIRIZINE HCL Inactiv e TUSSIONEX PENNKINETIC ER 10-8 MG/5ML ORAL SUSPENSION E XTENDED RELEASE 5ml po q12hr PRN Cough TUSSIONEX PENNKINETI C ER 10-8 MG/5ML ORAL SUSPENSION EXTENDED RELEASE HYDROCOD POLST-CHLORPHEN POLST I nactive NEXPLANON IMPLANT right arm subcutaneously NEXPLANON IMPLANT ETONOGESTREL IMPL Inactive PROTONIX 40 MG ORAL TABLET DELAYED RELEASE 1 po q a.m. PROTONIX 40 MG ORAL TABLET DELAYED RELEASE 737323 PANTOPRAZOLE SODI UM Inactive CHERATUSSIN AC 100-10 MG/5ML ORAL SYRUP 1 tsp by mouth every 4 hours as needed for cough CHERATUSSIN AC 100-10 MG/5ML ORAL SYRUP 9 44790 GUAIFENESIN-CODEINE Inactive GUAIFENESIN DM 400-20 MG ORAL [...] tid K EFLEX 500 MG ORAL CAPSULE 768180 CEPHALEXIN Inactive DIFLUCAN 100 MG ORAL TABLET 1 tablet by mouth daily, R EPEAT 2ND DOSE IN 7 DAYS IF STILL SYMPTOMATIC DIFLUCAN 100 MG ORAL TABLET 05580 8 FLUCONAZOLE Inactive PROTONIX 40 MG ORAL TABLET DELAYED RELEASE 1 pill by m outh daily, for acid reflux PROTONIX 40 MG ORAL TABLET DELAYED RELEAS E 188986 PANTOPRAZOLE SODIUM Inactive ALPRAZOLAM 0.25 MG ORAL TABLET 1 tablet by mouth twice a day as needed for stress/anxiety ALPRAZOLAM 0.25 MG ORAL TABLET 339936 ALPRAZOLAM Inactive ESCITALOPRAM OXALATE 10 MG ORAL TABLET take 1 tab po qhs for mod ESCITALOPRAM OXALATE 10 MG ORAL TABLET 210694 ESCITALOP JO OXALATE Inactive UNISOM SLEEPTABS 25 MG ORAL TABLET one tab PO qhs 2018 UNISOM SLEEPTABS 25 MG ORAL TABLET DOXYLAMINE SUCCINATE (SLEEP) [place] ctive PYRIDOXINE HCL 25 MG ORAL TABLET one tab PO 3-4 times per day 20 12/12/17 PYRIDOXINE HCL 25 MG ORAL TABLET 7959172 PYRIDOXINE HCL Inactive AMOXICILLIN 500 MG ORAL TABLET take 1 tab po TID 08/05 AMOXICILLIN 500 MG ORAL TABLET 236025 AMOXICILLIN Inactive AMOXICILLIN 500 MG ORAL CAPSULE 1 tab by mouth 3 times daily 201 11/24/09 AMOXICILLIN 500 MG ORAL CAPSULE 141692 AMOXICILLIN Inactive ZITHROMAX 250 MG ORAL TABLET 2 po today, then 1 po q days 2-5 20 09/23/25 ZITHROMAX 250 MG ORAL TABLET 407443 AZITHROMYCIN [place] ctive ZITHROMAX 250 MG ORAL TABLET 2 po today, then 1 po q days 2-5 20 10/03/08 ZITHROMAX 250 MG ORAL TABLET 085612 AZITHROMYCIN [place] ctive AZITHROMYCIN 500 MG ORAL TABLET 1 PO q day x 6 days 03/02/23 AZITHROMYCIN 500 MG ORAL TABLET 580167 AZITHROMYCIN Inactive BACTRIM 400-80 MG ORAL TABLET take one po BID BACTRIM 400- 80 MG ORAL TABLET 879751 SULFAMETHOXAZOLE-TRIMETHOPRIM Inactive AZITHROMYCIN 250 MG ORAL TABLET 2 po qd x 1 day, then 1 po q d x 4 days AZITHROMYCIN 250 MG ORAL TABLET 575590 AZITHROMY ALLISON Inactive PREDNISONE 20 MG ORAL TABLET 2 tabs daily for 3 days, 1 tab daily for 3 days, 1/2 tab daily for 2 days PREDNISONE 20 MG ORAL T ABLET 067529 PREDNISONE Inactive ZITHROMAX 250 MG ORAL TABLET 2 po today, then 1 po q days 2-5 20 06/08/16 ZITHROMAX 250 MG ORAL TABLET 880535 AZITHROMYCIN [place] ctive FLAGYL 500 MG ORAL TABLET 1 tablet by mouth two times daily 2014 FLAGYL 500 MG ORAL TABLET 898482 METRONIDAZOLE Inacti ve AUGMENTIN 875-125 MG ORAL TABLET 1 tab by mouth twice daily with food AUGMENTIN 875-125 MG ORAL TABLET AMOXICIL ELSA-POT CLAVULANATE Inactive NAPROXEN 500 MG ORAL TABLET one tab PO BID NAPROXEN 500 MG ORAL TABLET 491938 NAPROXEN Inactive PREDNISONE 20 MG ORAL TABLET 2 tabs daily for 3 days, 1 tab daily for 3 days, 1/2 tab daily for 2 days PREDNISONE 20 MG ORAL T ABLET 142818 PREDNISONE Inactive AZITHROMYCIN 250 MG ORAL TABLET 2 po qd x 1 day, then 1 po q d x 4 days AZITHROMYCIN 250 MG ORAL TABLET 655614 AZITHROMY ALLISON Inactive PREDNISONE 20 MG ORAL TABLET 2 tabs daily for 3 days, 1 tab daily for 3 days, 1/2 tab daily for 2 days PREDNISONE 20 MG ORAL T ABLET 890222 PREDNISONE Inactive ZITHROMAX Z-EMIL 250 MG ORAL TABLET 2 today, then 1 daily for 4 d ays ZITHROMAX Z-EMIL 250 MG ORAL TABLET 041291 AZITHROMYCIN Inactive CEFDINIR 300 MG ORAL CAPSULE [...] days PREDNISONE 20 MG ORAL T ABLET 817423 PREDNISONE Inactive BACTRIM DS 800-160 MG ORAL TABLET 1 tab by mouth twice daily 201 05/02/30 BACTRIM DS 800-160 MG ORAL TABLET 705449 TRIMETHOPRIM-SULFAMETHOXAZOLE Inactive ZITHROMAX Z-EMIL 250 MG ORAL TABLET 2 today, then 1 daily for 4 d ays ZITHROMAX Z-EMIL 250 MG ORAL TABLET 775013 AZITHROMYCIN Inactive TAMIFLU 75 MG ORAL CAPSULE 1 po BID x 5 days 0 TAMIFLU 75 MG ORAL CAPSULE 360645 OSELTAMIVIR PHOSPHATE Inactive CEFDINIR 300 MG ORAL CAPSULE 1 po BID x 10 days 01/03 CEFDINIR 300 MG ORAL CAPSULE 20030127 CEFDINIR Inactive ZITHROMAX Z-EMIL 250 MG TABS Take two tablets today and then 1 tablet daily for 4 days ZITHROMAX Z-EMIL 250 MG TABS 590243 AZITHROM YCIN Inactive AMOXICILLIN 875 MG ORAL TABLET 1 tab by mouth twice daily AMOXICILLIN 875 MG ORAL TABLET 345862 AMOXICILLIN Inactive CIPROFLOXACIN HCL 250 MG TABS Take 1 twice a day for 5 days for bladder infection CIPROFLOXACIN HCL 250 MG TABS 061819 CIPROFLOXACIN HCL Inactive TIZANIDINE HCL 4 MG ORAL TABLET Take one tablet by michael th every 8 hours as needed for muscle spasm TIZANIDINE HCL 4 MG ORAL TABLET 65800 3 TIZANIDINE HCL Inactive Advance Directives Directive [...] 11 .0-15.0 platelet count 280 THOUSAND/UL 10*3/mm3 168-683 1824/02/18 mean platelet volume 11.6 fL 7.5-12.5 Lab [...] 11 .6-14.8 platelet count 245 10^3/MM^3 10*3/mm3 763-622 9094/09/27 leukocyte count, blood 7.6 10^3/MM^3 10*3/mm3 4.6-10.2 [...] (L) - Chemistry sodium, serum 138 mmol/L 285-607 9372/04/11 carbon dioxide, venous blood 27.1 mmol/L 21.0-32 [...] mg/dL Encounters Code Encounter Date Provider Facility CPT-56546 Level 3 Est. Patient 16:14:18 [facility] Level 4 Est. Patient 16:18:17 [employer] Myrna maldonado MD [facility] CPT-18035 Level 4 Est. Patient 16:39:44 [employer] Jose Zhong MD [facility] CPT-03960 [id number] Vst-Est Level IV 13:45:[address] Tali Devi PA-C [facility] CPT-11893 [id number] Vst-Est Level III 09:41:31 CDT Arie Casper MD [facility] CPT-89114 [id number] Vst-Est Level III 18:20:11 CDT Me lobito Russ [facility] CPT-79798 [id number] Vst-Est Level III 17:21:41 CDT Me lobito Russ [facility] CPT-33110 [id number] Vst-Est Level IV 13:30:22 C NIC Casper MD [facility] CPT-64465 Level 4 Est. Patient 13:05:26 CDT Myrna Real Bernabe maldonado MD [facility]-57833 [id number] Vst-Est Level IV 20:50:21 C NIC Casper MD [facility] CPT-06278 Level 3 Est. Patient 11:49:34 [employer] Jessica boyd [facility] CPT-14161 Level 3 Est. Patient 14:55:50 [employer] Jose Zhong MD [facility] CPT-03575 Level 3 Est. Patient 10:21:41 [employer] Arie mcqueen MD [facility] CPT-41728 Level 3 Est. Patient 11:35:15 [employer] Arie mcqueen MD [facility] CPT-43759 Level 3 Est. Patient 15:40:28 CDT Brii Are [facility] CPT-30047 Level 3 Est. Patient 16:40:36 CDT Arie mcqueen MD [facility] CPT-54612 Level 4 Est. Patient 15:29:22 [employer] Arie mcqueen MD [facility] CPT-16019 Level 3 Est. Patient 15:18:16 [employer] Jono black DO [facility] CPT-82930 Level 4 Est. Patient 12:08:40 [employer] Brii Are ll [facility] CPT-48105 Level 3 Est. Patient 09:24:42 CDT Brii Are [facility] CPT-57287 Level 3 Est. Patient 09:12:56 CDT Arie mcqueen MD [facility] CPT-83664 Level 3 Est. Patient 16:40:54 CDT Jose Zhong MD [facility] CPT-93392 Level 2 Est. Patient 13:01:13 CDT Brii Yepez ll [employer] [facility] CPT-58049 Level 3 Est. Patient 11:55:30 [employer] Jono black DO [facility] CPT-87892 Level 3 Est. Patient 09:52:36 [employer] Brii Yepez ll [employer] [facility] CPT-75180 Level 3 Est. Patient 16:25:33 [employer] Rich Rosales MD [facility] CPT-25758 Level 3 Est. Patient 20:33:55 CDT Arie mcqueen MD [facility] CPT-63504 Level 3 Est. Patient 14:18:20 CDT Rich Rosales MD [facility] CPT-85341 Level 4 Est. Patient 09:34:31 CDT Arie mcqueen MD [facility] CPT-66858 Level 3 Est. Patient 09:08:55 [employer] Liliana vincent MD PhD [facility] CPT-91224 Level 3 Est. Patient 16:44:07 [employer] Arie mcqueen MD [facility] CPT-50911 Level 3 Est. Patient 10:44:27 CDT Arie mcqueen MD [facility] CPT-98433 Level 3 Est. Patient 08:55:41 CDT Jose Zhong MD [place] [facility] CPT-49046 Level 3 Est. Patient 18:37:31 CDT Liliana vincent MD PhD [facility] CPT-71741 Level 3 Est. Patient 14:28:23 CDT Abelardo HERNANDEZ [facility] CPT-86545 Level 3 Est. Patient 15:18:13 [employer] Arie mcqueen MD [facility] CPT-31783 Level 3 Est. Patient 10:11:29 [employer] Arie mcqueen MD [facility] CPT-65574 Level 3 Est. Patient 10:55:57 [employer] Jono black DO [facility] CPT-14492 Level 3 Est. Patient 17:29:05 CDT Arie mcqueen MD [facility] Procedures Code Procedure Name Date Entry Date Standard Desc ription CPT-65506 Venipuncture Draw Fee 17:00:58 CDT CPT-EVST Evisit 13:43:28 CDT CPT-27894 Sono OB transvag XRAY USE ONLY 17:12:53 CS T CPT-93898 Sono OB transvag XRAY USE ONLY 17:11:12 CS T CPT-02560 UHCG Urine - MARC ONLY 12:13:59 [employer] 12/11 CPT-73705 Spec Collection and Handling Fee 12:13:[address] CPT-43410 Visit 12:13:59 [employer] CPT-76365 First Vx - Ix admin via ID I M or jet injects without counseling by physician 13:00:15 [employer] CPT-31219 Flulaval Intramuscular Injectable 13:00:15 [employer] CPT-83209 Urine Dip (Floor Use Only) 12:20:20 [employer] 201 06/03/24 CPT-72872 Sono Soft Tissue Head and Neck - XRAY US E ONLY 17:10:14 CDT CPT-31398 Ear Wash with irrigation 17:21:41 CDT 07/04 CPT-43493 Nexplanon Removal 15:40:28 CDT CPT-01554 Sono transvag pelvis non OB uterus ovari es cervix - XRAY USE ONLY 08:58:14 [employer] CPT-39319 UA w micro - LAB USE ONLY 16:04:56 [employer] 2015 CPT-40396 Wet Prep/GEN - LAB USE ONLY 16:04:56 [employer] 20 08/10/29 CPT-49964 First Vx - Ix admin via ID I M or jet injects without counseling by physician 16:57:10 CDT CPT-56152 Fluzone Preservative Free Intramuscular Suspension 16:57:10 CDT CPT-J0696 Rocephin 1000 mg (Ceftriaxone) 11:49:23 CDT CPT-J1040 Depo Medrol 80 mg (Methyl Prednisolone A cetate) 11:49:23 CDT CPT-J1100 Decadron 8mg (Dexamethasone) 11:49:23 CDT 2 CPT-10685 Abx/Therapy Injection 11:49:23 CDT CPT-25003 Abx/Therapy Injection 11:49:23 CDT CPT-03723 Abd compl w upright 09:07:26 [employer] CPT-49348 Ear Wash 16:12:47 [employer] CPT-OV Office Visit 11:12:01 CDT CPT-OV Office Visit 15:30:23 CDT CPT-05538 Sono pelvis non OB uterus ovaries cervix 15:50:44 CDT CPT-49075 Hand comp min 3V 16:42:32 CDT CPT-70748 Abd compl w upright 12:17:01 CDT CPT-24760 Nexplanon Placement 15:07:39 [employer] CPT-49420 Removal of IUD 15:07:39 [employer] CPT-94624 TB Tubersol 12:09:32 CDT CPT-00253 TB Tubersol 13:55:43 CDT
--- OUTSIDE RECORDS SUMMARY | 2020-03-03 07:23 | XMS REPORT | Clinical Summary ---
Author Author Admin, Diamante Marcelo Organization [facility] Address Unknown Phone Unavailable Allergies, Adverse Reactions, Alerts Allergy Name Reaction Description Start Date Severity Status Pr ovider No Known Allergies KELLIE Rodrigues Conditions or Problems Problem Name Problem Code [...] Other and unspecified noninfectious gastroenteritis and colitis BREAST CANCER ICD-V16.3 Inactive Jose Zhong M [...] Status Provider Patient Instruction LOMOTIL 2.5-0.025 MG TABS 1 to 2 four times a day as needed for diarrhea DIPHENOXYLATE-ATROPINE 43344539905 Active Rich mcintosh MD Active PROMETHAZINE HCL 25 MG TABS 1 four times a day as needed for vomiting PROMETHAZINE HCL 59348150063 Active Rich Rosales MD Active BACTRIM DS 800-160 MG TABS 1 twice a day SULFAMETHOXAZOLE-TRIMETHOPRIM 06461283926 Active Rich Rosales MD Active AUGMENTIN 875-125 MG TAB 1 tab by mouth twice daily with food 08/12/16 AMOXICILLIN-POT CLAVULANATE 68135241021 No Longer Active Liliana Estrada MD PhD Active CYCLOBENZAPRINE HCL 10 MG TABS 1/2 - 1 tablet by mouth three times daily as needed for muscle spasm/pain CYCLOBENZAPRINE HCL 87013 255063 Active Liliana Estrada MD PhD Active GUAIFENESIN-CODEINE 100-10 MG/5ML ORAL SYRP 2 tsp every 6 hours prn GUAIFENESIN-CODEINE 18978851338 Active Liliana Estrada MD PhD Active VICKS DAYQUIL SEVERE COLD/FLU TABS 1 tab every 6 hours prn [id number] TABS 67550785625 Active Liliana Estrada MD PhD Active AMOXICILLIN 500 MG CAP 1 tab by mouth 3 times daily 08/12/16 AMOXICILLIN 87607765345 No Longer Active Liliana Estrada MD PhD Acti ve TESSALON PERLES 100 MG CAP 1 tablet by mouth 3 times daily 11/01 BENZONATATE 66358289017 No Longer Active Liliana Estrada MD PhD Active FLAGYL 500 MG TAB 1 tablet by mouth two times daily 07/11/29 METRONIDAZOLE 54505113096 No Longer Active Nilam Weber Active ZITHROMAX 250 MG TAB 2 po today, then 1 po q days 2-5 AZITHROMYCIN 82875077173 No Longer Active Arie Casper MD Acti ve VITAMINS 0.8 MG TABS take 1 tab po qday 08/08 [id number] 02451356952 No Longer Active Arie Casper MD Active IBUPROFEN 800 MG TABS take one po Q 8 hours IBU PROFEN 63058425340 No Longer Active Aire Casper MD Active [facility] TUSSIN COUGH/COLD CF 5-10-100 MG/5ML LIQD 2 teaspoons ev eliud 4 hours [id number] 65768886721 No Longer Active Blaine Casper MD Active COMTREX COLD/COUGH DAY/NITE MS 5-2-10-325 MG MISC 2 caps deja ry 4 hours [id number] 22440718757 No Longer Active Da aleksandra Casper MD Active CHLORASEPTIC MAX SORE THROAT 15-10 MG LOZG 1 every 2 hours prn 2 BENZOCAINE-MENTHOL 21783272188 No Longer Active Arie Marcelo Active PREDNISONE 20 MG TAB 2 tabs daily for 3 days, 1 t ab daily for 3 days, 1/2 tab daily for 2 days PREDNISONE 64055834254 No Longer Active Jose Zhong MD Active AZITHROMYCIN 250 MG TABS 2 po qd x 1 day, then 1 po qd x 4 days AZITHROMYCIN 49722898851 No Longer Active Jose Zhong MD Active ZOFRAN ODT 4 MG TBDP 1 po q6hr PRN Nausea ONDAN SETRON 24431124977 No Longer Active Rich Rosales MD Active ZOFRAN 4 MG TABS 1 tablet every 4 hours ONDANSE JERRELL HCL 41290682651 No Longer Active Rich Rosales MD Active MUCINEX 600 MG [id number] Take 1-2 tablets every 12 hours GUAIFENESIN 97894348444 No Longer Active Rich Rosales MD Activ e BACTRIM 400-80 MG TABS take one po BID SULFAMETHOXAZOLE-TRIMETHOPRIM 15046729832 No Longer Active Abelardo HERNANDEZ Active AZITHROMYCIN 500 MG TABS 1 PO q day x 6 days AZ ITHROMYCIN 06219863591 No Longer Active Tin HERNANDEZ Active ZITHROMAX 250 MG TAB 2 po today, then 1 po q days 2-5 AZITHROMYCIN 07732784102 No Longer Active Arie Casper MD Acti ve ZITHROMAX 250 MG TAB 2 po today, then 1 po q days 2-5 AZITHROMYCIN 59050452067 No Longer Active Arie Casper MD Acti ve AMOXICILLIN 500 MG CAP 1 tab by mouth 3 times daily 20 09/23/20 AMOXICILLIN 44682011058 No Longer Active Arie Casper MD Acti ve BACTRIM DS 800-160 MG TAB 1 tab by mouth twice daily 2 TRIMETHOPRIM-SULFAMETHOXAZOLE 20929340507 No Longer Active Arie Casper MD Active AMOXICILLIN 500 MG TABS take 1 tab po TID AMOXI CILLIN 84335924527 No Longer Active Arie Casper MD Active BACTRIM DS 800-160 MG TAB 1 tab by mouth twice daily 2 BACTRIM DS 800-160 MG TAB TRIMETHOPRIM-SULFAMETHOXAZOLE Inac tive MUCINEX 600 MG [id number] Take 1-2 tablets every 12 hours MUCINEX 600 MG [id number] GUAIFENESIN Inactive ZOFRAN 4 MG TABS 1 tablet every 4 hours ZOFRAN 4 MG TABS 749101 ONDANSETRON HCL Inactive ZOFRAN ODT 4 MG TBDP 1 po q6hr PRN Nausea ZOFRAN ODT 4 MG TBDP 626146 ONDANSETRON Inactive CHLORASEPTIC MAX SORE THROAT 15-10 MG LOZG 1 every 2 hours prn 2 014/04/30 CHLORASEPTIC MAX SORE THROAT 15-10 MG LOZG BENZO ARINA-MENTHOL Inactive COMTREX COLD/COUGH DAY/NITE MS 5-2-10-325 MG MISC 2 caps deja ry 4 hours COMTREX COLD/COUGH DAY/NITE MS 5-2-10-325 MG MIS C [id number] Inactive [facility] TUSSIN COUGH/COLD CF 5-10-100 MG/5ML LIQD 2 teaspoons ev eliud 4 hours [facility] TUSSIN COUGH/COLD CF 5-10-100 MG/5ML LIQD [id number] Inactive IBUPROFEN 800 MG TABS take one po Q 8 hours IBUPROFEN 800 MG TABS IBUPROFEN Inactive VITAMINS 0.8 MG TABS take 1 tab po qday 08/08 VITAMINS 0.8 MG TABS [id number] Inactive TESSALON PERLES 100 MG CAP 1 tablet by mouth 3 times daily 11/01 TESSALON PERLES 100 MG CAP 804460 BENZONATATE Inact zaid AMOXICILLIN 500 MG CAP 1 tab by mouth 3 times daily 08/12/16 AMOXICILLIN 500 MG CAP 013877 AMOXICILLIN Inactive AMOXICILLIN 500 MG TABS take 1 tab po TID AMOXICILLIN 500 MG TABS 094907 AMOXICILLIN Inactive AMOXICILLIN 500 MG CAP 1 tab by mouth 3 times daily 09/23/20 AMOXICILLIN 500 MG CAP 087119 AMOXICILLIN Inactive ZITHROMAX 250 MG TAB 2 po today, then 1 po q days 2-5 ZITHROMAX 250 MG TAB 1791296 AZITHROMYCIN Inactive ZITHROMAX 250 MG TAB 2 po today, then 1 po q days 2-5 ZITHROMAX 250 MG TAB 1864746 AZITHROMYCIN Inactive AZITHROMYCIN 500 MG TABS 1 PO q day x 6 days 3 AZITHROMYCIN 500 MG TABS 9438245 AZITHROMYCIN Inactive BACTRIM 400-80 MG TABS take one po BID BA CTRIM 400-80 MG TABS 777343 SULFAMETHOXAZOLE-TRIMETHOPRIM Inactive AZITHROMYCIN 250 MG TABS 2 po qd x 1 day, then 1 po qd x 4 days AZITHROMYCIN 250 MG TABS 0911435 AZITHROMYCIN Inactiv e PREDNISONE 20 MG TAB 2 tabs daily for 3 days, 1 t ab daily for 3 days, 1/2 tab daily for 2 days PREDNISONE 20 MG TAB 384897 PREDNISON E Inactive ZITHROMAX 250 MG TAB 2 po today, then 1 po q days 2-5 ZITHROMAX 250 MG TAB 1421282 AZITHROMYCIN Inactive FLAGYL 500 MG TAB 1 tablet by mouth two times daily 07/11/29 FLAGYL 500 MG TAB 779545 METRONIDAZOLE Inactive AUGMENTIN 875-125 MG TAB 1 tab by mouth twice daily with food 08/12/16 AUGMENTIN 875-125 MG TAB 988301 AMOXICILLIN-POT CLAVULA ANGELO Inactive Advance Directives Directive Description Start Date [...] Range Description blood pressure, diastolic - 8462-4 77 mm[Hg] BP kennedy blood pressure, systolic - 8480-6 113 mm[Hg] BP sys pulse rate E&M - 8867-4 114 /min H eart rate temperature E&M 100.5 [degF] Body temp erature weight E&M - 3141-9 164 [lb_av] Weigh t Measured blood pressure, diastolic - 8462-4 83 mm[Hg] BP kennedy blood pressure, systolic - 8480-6 124 mm[Hg] BP sys pulse rate E&M - 8867-4 103 /min H eart rate temperature E&M 99.5 [degF] Body temp erature weight E&M - 3141-9 160.8 [lb_av] Weigh t Measured blood pressure, diastolic - 8462-4 86 mm[Hg] BP kennedy blood pressure, systolic - 8480-6 121 mm[Hg] BP sys pulse rate E&M - 8867-4 111 /min H eart rate temperature E&M 99.7 [degF] Body temp erature weight E&M - 3141-9 164 [lb_av] Weigh t Measured blood pressure, diastolic - 8462-4 83 mm[Hg] BP kennedy blood pressure, systolic - 8480-6 116 mm[Hg] BP sys pulse rate E&M - 8867-4 88 /min H eart rate temperature E&M 98.2 [degF] Body temp erature weight E&M - 3141-9 167 [lb_av] Weigh t Measured blood pressure, diastolic - 8462-4 76 mm[Hg] BP kennedy blood pressure, systolic - 8480-6 125 mm[Hg] BP sys pulse rate E&M - 8867-4 80 /min H eart rate temperature E&M 98.1 [degF] Body temp erature weight E&M - 3141-9 166.6 [lb_av] Weigh t Measured Diagnostic Results Date Name Value Unit Range Description Immunizations: TB Skin Test - Challenge tests PPD results in mm 00 mm Lab Report: CBC W/DIFF - Hematology leukocyte count, blood 4.4 10^3/MM^3 10*3/mm3 4.6-10.2 neutrophils as percent of blood leukocytes 54.8 % 42.2-75.2 monocytes as percent of blood leukocytes 12.7 % 1.7-9.3 lymphocytes as percent of blood leukocytes 28.4 % 20.5-51.1 erythrocyte (RBC) count 4.92 10^6/MM^3 10*6/mm3 4.04-5.4 8 hemoglobin, blood 13.5 g/dL 12.0-16.0 hematocrit, blood 40.7 % 36.0-46.0 mean corpuscular volume, RBC 83 fL 80-97 mean corpuscular hemoglobin, RBC 27.5 pg 27. 0-31.2 mean corpuscular hemoglobin concentration, RBC 33.2 G/DL % 31.8-35.4 red blood cell distribution width 13.5 % 11 .6-14.8 platelet count 214 10^3/MM^3 10*3/mm3 142-424 Lab Report: LILIA INFLUENZA A/B - [place] log[place] rapid flu test Negative Negative;Positive Encounters Code Encounter Date Provider Facility CPT-02224 Level 3 Est. Patient 14:18:20 CDT Rich Rosales MD [facility] CPT-06213 Level 4 Est. Patient 09:34:31 CDT Arie mcqueen MD [facility] CPT-70284 Level 3 Est. Patient 09:08:55 [employer] Liliana vincent MD PhD [facility] CPT-02475 Level 3 Est. Patient 16:44:07 [employer] Arie mcqueen MD [facility] CPT-46739 Level 3 Est. Patient 10:44:27 CDT Arie mcqueen MD [facility] CPT-84573 Level 3 Est. Patient 08:55:41 CDT Jose Zhong MD [facility] CPT-84753 Level 3 Est. Patient 18:37:31 CDT Liliana vincent MD PhD [facility] CPT-88121 Level 3 Est. Patient 14:28:23 CDT Abelardo HERNANDEZ [facility] CPT-08992 Level 3 Est. Patient 15:18:13 [employer] Arie mcqueen MD [facility] CPT-41950 Level 3 Est. Patient 10:11:29 [employer] Arie mcqueen MD [facility] CPT-70272 Level 3 Est. Patient 10:55:57 [employer] Jono black DO [facility] CPT-61371 Level 3 Est. Patient 17:29:05 CDT Arie mcqueen MD [facility] Procedures Code Procedure Name Date Entry Date Standard Desc ription CPT-18192 Hand comp min 3V 16:42:32 CDT CPT-46132 Abd compl w upright 12:17:01 CDT CPT-31532 Nexplanon Placement 15:07:39 [employer] CPT-73713 Removal of IUD 15:07:39 [employer]CH[employer] CPT-38617 TB Tubersol 12:09:32 CDT CPT-31866 TB Tubersol 13:55:43 CDT
[2020-03-03] MEDS ORDERED: IBUP-1780 PO (07:24)
[2020-03-03] MEDS ORDERED: DOCU-143 PO (07:24)
--- OUTSIDE RECORDS SUMMARY | 2020-03-03 07:24 | XMS REPORT | Clinical Summary ---
Author Author Admin, Diamante Marcelo Organization [employer] Address Unknown Phone Unavailable Allergies, Adverse Reactions, [...] cute pharyngitis Nausea 787.02 Active Brii Larson ROSS FURNACE OPERATOR Nausea alone URI 465.9 Active Jono Gagnon DO Acu te upper respiratory infections of unspecified site Allergic rhinitis 477.9 Active Brii Christianson PRN Allergic rhinitis, cause unspecified Abdominal pain, right lower quadrant 789.03 Active Jose Zhong MD Abdominal pain, right lower quadrant Urinary frequency 788.41 Inactive Roseann Crawford Urinary frequency Urinary frequency 788.41 Active 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, AUTOMATION 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 Urinary frequency Sinusitis - acute 461.9 Active Brii Christianson PRN Acute sinusitis, unspecified Anxiety with depression 300.4 Active Glenn Larson ROSS FURNACE OPERATOR Dysthymic disorder URI 465.9 Active Jono Gagnon DO Acu te upper respiratory infections of unspecified site Vaginal bleeding 623.8 Active Brii MARROQUIN RN Other specified noninflammatory disorders of vagina High risk sexual behavior V69.2 Active Arie Casper MD High-risk sexual behavior GERD 530.81 Active Arie Casper MD Esophageal reflux Encounter for surveillance of implantable subdermal contraceptiv e Active Brii Larson ROSS FURNACE OPERATOR Vaginal bleeding 623.8 Active Arie Casper [...] RELEASE 1 po q a.m. PANTOPRAZOLE SODIUM [id number] No Longer Active Arie Casper MD Active BACTRIM DS 800-160 MG ORAL TABLET 1 tab by mouth twice daily 201 05/02/30 TRIMETHOPRIM-SULFAMETHOXAZOLE 16208978699 No Longer Active R [facility] Active NEXPLANON IMPLANT right arm subcutaneously ETONOGESTREL IMPL 23461886177 No Longer Active Brii Larson APRN Acti ve TUSSIONEX PENNKINETIC ER 10-8 MG/5ML ORAL SUSPENSION E XTENDED RELEASE 5ml po q12hr PRN Cough HYDROCOD POLST-CHLORPHEN POLST 5 8215295322 No Longer Active Brii Larson APRN Active CETIRIZINE HCL 10 MG ORAL TABLET 1 po qd PRN Allergies CETIRIZINE HCL 30211416561 No Longer Active Brii Larson APRN Ac tive PREDNISONE 20 MG ORAL TABLET 2 tabs daily for 3 days, 1 tab daily for 3 days, 1/2 tab daily for 2 days PREDNISONE 91302427020 No Longer Active Arie Casper MD Active LOMOTIL 2.5-0.025 MG ORAL TABLET 1 tab po four times a day as needed for diarrhea DIPHENOXYLATE-ATROPINE 04054794026 No Lo nger Active Arie Casper MD Active ZOLOFT 50 MG ORAL TABLET 1 tablet by mouth daily 12/08 SERTRALINE HCL 16272947101 No Longer Active Arie Casper MD Ac tive NAPROXEN 500 MG ORAL TABLET Take 1 tab BID NAPR OXEN 91913822455 No Longer Active Arie Casper MD Active CEFDINIR 300 MG ORAL CAPSULE 1 po BID x 10 days CEFDINIR 43222087230 No Longer Active Brii Larson APRN Active PREDNISONE 20 MG ORAL TABLET 1 tablet daily for airway inflammat ion PREDNISONE 57130191241 No Longer Active Brii Larson APRN Active CEFDINIR 300 MG ORAL CAPSULE 1 po BID x 10 days CEFDINIR 47328218725 No Longer Active Jono Gganon DO Active FLONASE 50 MCG/ACT NASAL SUSPENSION 1 spray each nostr il twice daily for allergies and runny nose until gone FLUT ICASONE PROPIONATE 63670201786 No Longer Active Jono Gagnon DO Active ALPRAZOLAM 0.25 MG ORAL TABLET 1 tablet by mouth every 8 hours as needed for stress ALPRAZOLAM 47860311322 No Longer Active Jono Gagnon DO Active ZITHROMAX Z-EMIL 250 MG ORAL TABLET 2 today, then 1 daily for 4 d ays AZITHROMYCIN 11540514292 No Longer Active Arie Casper MD Active PREDNISONE 20 MG ORAL TABLET 2 tabs daily for 3 days, 1 tab daily for 3 days, 1/2 tab daily for 2 days PREDNISONE 18814153080 No Longer Active Brii Larson APRN Active PREDNISONE 20 MG ORAL TABLET 1 tablet twice daily for 2 days, then 1 tablet once daily for 2 days PREDNISONE 25926442102 No Longer Active Brii Larson APRN Active PROMETHAZINE HCL 12.5 MG ORAL TABLET 1 tablet by mouth every 6 hours as needed for nausea/vomiting PROMETHAZINE HCL 74644355470 No L onger Active Jono Gagnon DO Active CITRATE OF MAGNESIA ORAL SOLUTION 1 bottle today for constipatio n MAGNESIUM CITRATE 44178018780 No Longer Active Jono Gagnon DO Active ZOFRAN 4 MG ORAL TABLET 1 TAB PO Q 6 HRS PRN NAUSEA 20 07/10/15 ONDANSETRON HCL 34818567873 No Longer Active Brii Larson APRN A ctive LOMOTIL 2.5-0.025 MG ORAL TABLET 1 to 2 four times a day as needed for diarrhea DIPHENOXYLATE-ATROPINE 09950749147 No Longer Active January Larson APRN Active AMOXICILLIN 500 MG ORAL TABLET 2 tabs twice a day for 10 days 20 07/09/11 AMOXICILLIN 97986594147 No Longer Active Brii Larson APRN Active CYCLOBENZAPRINE HCL 10 MG ORAL TABLET 1/2 - 1 tablet b y mouth three times daily as needed for muscle spasm/pain CYCLOBENZAPRINE HCL 97390575342 No Longer Active Arie Casper MD Active LOMOTIL 2.5-0.025 MG ORAL TABLET 1 to 2 four times a day as needed for diarrhea DIPHENOXYLATE-ATROPINE 41650596332 No Longer Active D freddy Casper MD Active MACROBID 100 MG ORAL CAPSULE 1 cap by mouth twice daily NITROFURANTOIN MONOHYD MACRO 74418931776 No Longer Active Arie Casper MD Active ZYRTEC ALLERGY 10 MG ORAL CAPSULE 1 po qd CE TIRIZINE HCL 70088054588 No Longer Active Arie Casper MD Active AZITHROMYCIN 250 MG ORAL TABLET 2 po qd x 1 day, then 1 po q d x 4 days AZITHROMYCIN 08394852893 No Longer Active Jessica salgado APRN Active PREDNISONE 20 MG ORAL TABLET 2 tabs daily for 3 days, 1 tab daily for 3 days, 1/2 tab daily for 2 days PREDNISONE 98328574490 No Longer Active Jessica Heaton ROSS FURNACE OPERATOR Active PROMETHAZINE HCL 25 MG ORAL TABLET 1 four times a day as nee ded for vomiting PROMETHAZINE HCL 96231163191 No Longer Active Myrna Roberto MD Active BACTRIM DS 800-160 MG ORAL TABLET 1 twice a day 05/30 SULFAMETHOXAZOLE-TRIMETHOPRIM 49572748380 No Longer Active Myrna Roberto MD Active VICKS DAYQUIL SEVERE COLD/FLU TABLET 1 tab every 6 hours prn 201 02/22/17 [id number] TABS 61108966792 No Longer Active Chris Roberto MD Active GUAIFENESIN-CODEINE 100-10 MG/5ML ORAL SYRUP 2 tsp every 6 hours prn GUAIFENESIN-CODEINE 34599910596 No Longer Active Myrna Roberto MD Active NAPROXEN 500 MG ORAL TABLET one tab PO BID NAPR OXEN 83113725127 No Longer Active Myrna Roberto MD Active AUGMENTIN 875-125 MG ORAL TABLET 1 tab by mouth twice daily with food AMOXICILLIN-POT CLAVULANATE 78476049749 No Longer Act zaid Liliana Estrada MD PhD Active AMOXICILLIN 500 MG ORAL CAPSULE 1 tab by mouth 3 times daily 201 02/21/05 AMOXICILLIN 97392432197 No Longer Active Liliana Estrada MD PhD Active TESSALON PERLES 100 MG ORAL CAPSULE 1 tablet by mouth 3 times da cory BENZONATATE 53380856261 No Longer Active Liliana Estrada MD PhD Active FLAGYL 500 MG ORAL TABLET 1 tablet by mouth two times daily 2014 METRONIDAZOLE 13020291213 No Longer Active Nilam Doran tive ZITHROMAX 250 MG ORAL TABLET 2 po today, then 1 po q days 2-5 20 06/08/16 AZITHROMYCIN 43395743827 No Longer Active Arie Casper MD Active VITAMINS 0.8 MG ORAL TABLET take 1 tab po qday [id number] 44139710670 No Longer Active Arie Casper MD Active IBUPROFEN 800 MG ORAL TABLET take one po Q 8 hours 201 02/01/16 IBUPROFEN 52657816134 No Longer Active Arie Casper MD Acti ve [facility] TUSSIN COUGH/COLD CF 5-10-100 MG/5ML ORAL LIQUID 2 teasp oons every 4 hours [id number] 24901650176 No Longer Active Blaine Casper MD Active COMTREX COLD/COUGH DAY/NITE MS 5-2-10-325 MG ORAL 2 caps deja ry 4 hours [id number] 56969204010 No Longer Active Da aleksandra Casper MD Active CHLORASEPTIC MAX SORE THROAT 15-10 MG MOUTH/THROAT LOZENGE 1 every 2 hours prn BENZOCAINE-MENTHOL 70695012202 No Longer Active Arie Casper MD Active PREDNISONE 20 MG ORAL TABLET 2 tabs daily for 3 days, 1 tab daily for 3 days, 1/2 tab daily for 2 days PREDNISONE 73352430889 No Longer Active Jose Zhong MD Active AZITHROMYCIN 250 MG ORAL TABLET 2 po qd x 1 day, then 1 po q d x 4 days AZITHROMYCIN 95462017118 No Longer Active Jose Mcwilliams MD Active ZOFRAN ODT 4 MG ORAL TABLET DISINTEGRATING 1 po q6hr PRN Nausea ONDANSETRON 87097297315 No Longer Active Rich Rosales MD Active ZOFRAN 4 MG ORAL TABLET 1 tablet every 4 hours ONDANSETRON HCL 61279850388 No Longer Active Rich Rosales MD Activ e MUCINEX 600 MG ORAL TABLET EXTENDED RELEASE 12 HOUR Ta ke 1-2 tablets every 12 hours GUAIFENESIN 14792860200 No Longer Active Rich Rosales MD Active BACTRIM 400-80 MG ORAL TABLET take one po BID SULFAMETHOXAZOLE-TRIMETHOPRIM 79766745909 No Longer Active Abelardo HERNANDEZ Active AZITHROMYCIN 500 MG ORAL TABLET 1 PO q day x 6 days 20 03/02/23 AZITHROMYCIN 09455359115 No Longer Active Tin HERNANDEZ Activ e ZITHROMAX 250 MG ORAL TABLET 2 po today, then 1 po q days 2-5 20 10/03/08 AZITHROMYCIN 92969110034 No Longer Active Arie Casper MD Active ZITHROMAX 250 MG ORAL TABLET 2 po today, then 1 po q days 2-5 20 09/23/25 AZITHROMYCIN 51910904589 No Longer Active Arie Casper MD Active AMOXICILLIN 500 MG ORAL CAPSULE 1 tab by mouth 3 times daily 201 11/24/09 AMOXICILLIN 08005687434 No Longer Active Arie Casper MD Active BACTRIM DS 800-160 MG ORAL TABLET 1 tab by mouth twice daily 201 11/03/14 TRIMETHOPRIM-SULFAMETHOXAZOLE 87506635642 No Longer Active Fozia Casper MD Active AMOXICILLIN 500 MG ORAL TABLET take 1 tab po TID 08/05 AMOXICILLIN 19354827326 No Longer Active Arie Casper MD Acti ve BACTRIM DS 800-160 MG ORAL TABLET 1 tab by mouth twice daily 201 11/03/14 BACTRIM DS 800-160 MG ORAL TABLET 861829 TRIMETHOPRIM-SULFAMETHOXAZOLE Inactive MUCINEX 600 MG ORAL TABLET EXTENDED RELEASE 12 HOUR Ta ke 1-2 tablets every 12 hours MUCINEX 600 MG ORAL TABLET EXTENDED RELEA SE 12 HOUR GUAIFENESIN Inactive ZOFRAN 4 MG ORAL TABLET 1 tablet every 4 hours ZOFRAN 4 MG ORAL TABLET 369436 ONDANSETRON HCL Inactive ZOFRAN ODT 4 MG ORAL TABLET DISINTEGRATING 1 po q6hr PRN Nausea ZOFRAN ODT 4 MG ORAL TABLET DISINTEGRATING 347809 ONDAN SETRON Inactive CHLORASEPTIC MAX SORE THROAT 15-10 MG MOUTH/THROAT LOZENGE 1 every 2 hours prn CHLORASEPTIC MAX SORE THROAT 15-10 MG MOUTH/THROAT LOZENGE BENZOCAINE-MENTHOL Inactive COMTREX COLD/COUGH DAY/NITE MS 5-2-10-325 MG ORAL 2 caps deja ry 4 hours COMTREX COLD/COUGH DAY/NITE MS 5-2-10-325 MG ORA L [id number] Inactive [facility] TUSSIN COUGH/COLD CF 5-10-100 MG/5ML ORAL LIQUID 2 teasp oons every 4 hours [facility] TUSSIN COUGH/COLD CF 5-10-100 MG/5ML ORAL LI QUID [id number] Inactive IBUPROFEN 800 MG ORAL TABLET take one po Q 8 hours 201 02/01/16 IBUPROFEN 800 MG ORAL TABLET IBUPROFEN Inactive VITAMINS 0.8 MG ORAL TABLET take 1 tab po qday VITAMINS 0.8 MG ORAL TABLET [id number] E-FA Inactive TESSALON PERLES 100 MG ORAL CAPSULE 1 tablet by mouth 3 times da cory TESSALON PERLES 100 MG ORAL CAPSULE 870266 BENZONATATE Inactive AMOXICILLIN 500 MG ORAL CAPSULE 1 tab by mouth 3 times daily 201 02/21/05 AMOXICILLIN 500 MG ORAL CAPSULE 030726 AMOXICILLIN Inactive GUAIFENESIN-CODEINE 100-10 MG/5ML ORAL SYRUP 2 tsp every 6 hours prn GUAIFENESIN-CODEINE 100-10 MG/5ML ORAL SYRUP 516945 GUAIFENESIN-CODEINE Inactive VICKS DAYQUIL SEVERE COLD/FLU TABLET 1 tab every 6 hours prn 201 02/22/17 VICKS DAYQUIL SEVERE COLD/FLU TABLET PHENYLEPHRI [id number]-JZ-APAP TABS Inactive BACTRIM DS 800-160 MG ORAL TABLET 1 twice a day 05/30 BACTRIM DS 800-160 MG ORAL TABLET 697326 SULFAMETHOXAZOLE-TRIMETHOPRIM Inactiv e PROMETHAZINE HCL 25 MG ORAL TABLET 1 four times a day as nee ded for vomiting PROMETHAZINE HCL 25 MG ORAL TABLET 999177 PROMETHAZINE HCL Inactive ZYRTEC ALLERGY 10 MG ORAL CAPSULE 1 po qd ZYRTEC ALLERGY 10 MG ORAL CAPSULE CETIRIZINE HCL Inactive MACROBID 100 MG ORAL CAPSULE 1 cap by mouth twice daily MACROBID 100 MG ORAL CAPSULE 5722183 NITROFURANTOIN MONOHYD MACRO In active LOMOTIL 2.5-0.025 MG ORAL TABLET 1 to 2 four times a day as needed for diarrhea LOMOTIL 2.5-0.025 MG ORAL TABLET 2074660 DIPHENOXYLATE-ATROPINE Inactive CYCLOBENZAPRINE HCL 10 MG ORAL TABLET 1/2 - 1 tablet b y mouth three times daily as needed for muscle spasm/pain CYCLOBEN ZAPRINE HCL 10 MG ORAL TABLET 785184 CYCLOBENZAPRINE HCL Inactive AMOXICILLIN 500 MG ORAL TABLET 2 tabs twice a day for 10 days 20 07/09/11 AMOXICILLIN 500 MG ORAL TABLET 911369 AMOXICILLIN I nactive LOMOTIL 2.5-0.025 MG ORAL TABLET 1 to 2 four times a day as needed for diarrhea LOMOTIL 2.5-0.025 MG ORAL TABLET 1281558 DIPHENOXYLATE-ATROPINE Inactive ZOFRAN 4 MG ORAL TABLET 1 TAB PO Q 6 HRS PRN NAUSEA 20 07/10/15 ZOFRAN 4 MG ORAL TABLET 266099 ONDANSETRON HCL Inactive CITRATE OF MAGNESIA ORAL SOLUTION 1 bottle today for constipatio n CITRATE OF MAGNESIA ORAL SOLUTION 2056287 MAGNESIUM CITR ATE Inactive PROMETHAZINE HCL 12.5 MG ORAL TABLET 1 tablet by mouth every 6 hours as needed for nausea/vomiting PROMETHAZINE HCL 12.5 MG ORA L TABLET 004930 PROMETHAZINE HCL Inactive PREDNISONE 20 MG ORAL TABLET 1 tablet twice daily for 2 days, then 1 tablet once daily for 2 days PREDNISONE 20 MG ORAL TABLET 549453 PREDNISONE Inactive ALPRAZOLAM 0.25 MG ORAL TABLET 1 tablet by mouth every 8 hours as needed for stress ALPRAZOLAM 0.25 MG ORAL TABLET 378435 ALPRA ZOLAM Inactive FLONASE 50 MCG/ACT NASAL SUSPENSION 1 spray each nostr il twice daily for allergies and runny nose until gone FLON ASE 50 MCG/ACT NASAL SUSPENSION 6027157 FLUTICASONE PROPIONATE Inactive PREDNISONE 20 MG ORAL TABLET 1 tablet daily for airway inflammat ion PREDNISONE 20 MG ORAL TABLET 018081 PREDNISONE Arlen ctive NAPROXEN 500 MG ORAL TABLET Take 1 tab BID NAPROXEN 500 MG ORAL TABLET 560748 NAPROXEN Inactive ZOLOFT 50 MG ORAL TABLET 1 tablet by mouth daily 12/08 ZOLOFT 50 MG ORAL TABLET 476079 SERTRALINE HCL Inactive LOMOTIL 2.5-0.025 MG ORAL TABLET 1 tab po four times a day as needed for diarrhea LOMOTIL 2.5-0.025 MG ORAL TABLET 4893290 DIPHENOXYLATE-ATROPINE Inactive CETIRIZINE HCL 10 MG ORAL TABLET 1 po qd PRN Allergies CETIRIZINE HCL 10 MG ORAL TABLET 4979667 CETIRIZINE HCL Inactiv e TUSSIONEX PENNKINETIC ER 10-8 MG/5ML ORAL SUSPENSION E XTENDED RELEASE 5ml po q12hr PRN Cough TUSSIONEX PENNKINETI C ER 10-8 MG/5ML ORAL SUSPENSION EXTENDED RELEASE HYDROCOD POLST-CHLORPHEN POLST I nactive NEXPLANON IMPLANT right arm subcutaneously NEXPLANON IMPLANT ETONOGESTREL IMPL Inactive PROTONIX 40 MG ORAL TABLET DELAYED RELEASE 1 po q a.m. PROTONIX 40 MG ORAL TABLET DELAYED RELEASE 429283 PANTOPRAZOLE SODI UM Inactive AMOXICILLIN 500 MG ORAL TABLET take 1 tab po TID 08/05 AMOXICILLIN 500 MG ORAL TABLET 634441 AMOXICILLIN Inactive AMOXICILLIN 500 MG ORAL CAPSULE 1 tab by mouth 3 times daily 201 11/24/09 AMOXICILLIN 500 MG ORAL CAPSULE 018840 AMOXICILLIN Inactive ZITHROMAX 250 MG ORAL TABLET 2 po today, then 1 po q days 2-5 20 09/23/25 ZITHROMAX 250 MG ORAL TABLET 568230 AZITHROMYCIN Hardin ctive ZITHROMAX 250 MG ORAL TABLET 2 po today, then 1 po q days 2-5 20 10/03/08 ZITHROMAX 250 MG ORAL TABLET 881042 AZITHROMYCIN Arlen ctive AZITHROMYCIN 500 MG ORAL TABLET 1 PO q day x 6 days 20 03/02/23 AZITHROMYCIN 500 MG ORAL TABLET 4940300 AZITHROMYCIN Inactive BACTRIM 400-80 MG ORAL TABLET take one po BID BACTRIM 400- 80 MG ORAL TABLET 987234 SULFAMETHOXAZOLE-TRIMETHOPRIM Inactive AZITHROMYCIN 250 MG ORAL TABLET 2 po qd x 1 day, then 1 po q d x 4 days AZITHROMYCIN 250 MG ORAL TABLET 233810 AZITHROMY ALLISON Inactive PREDNISONE 20 MG ORAL TABLET 2 tabs daily for 3 days, 1 tab daily for 3 days, 1/2 tab daily for 2 days PREDNISONE 20 MG ORAL T ABLET 452635 PREDNISONE Inactive ZITHROMAX 250 MG ORAL TABLET 2 po today, then 1 po q days 2-5 20 06/08/16 ZITHROMAX 250 MG ORAL TABLET 023686 AZITHROMYCIN Hardin ctive FLAGYL 500 MG ORAL TABLET 1 tablet by mouth two times daily 2014 FLAGYL 500 MG ORAL TABLET 825972 METRONIDAZOLE Inacti ve AUGMENTIN 875-125 MG ORAL TABLET 1 tab by mouth twice daily with food AUGMENTIN 875-125 MG ORAL TABLET 080178 AMOXICIL ELSA-POT CLAVULANATE Inactive NAPROXEN 500 MG ORAL TABLET one tab PO BID NAPROXEN 500 MG ORAL TABLET 106177 NAPROXEN Inactive PREDNISONE 20 MG ORAL TABLET 2 tabs daily for 3 days, 1 tab daily for 3 days, 1/2 tab daily for 2 days PREDNISONE 20 MG ORAL T ABLET 543108 PREDNISONE Inactive AZITHROMYCIN 250 MG ORAL TABLET 2 po qd x 1 day, then 1 po q d x 4 days AZITHROMYCIN 250 MG ORAL TABLET 683462 AZITHROMY ALLISON Inactive PREDNISONE 20 MG ORAL TABLET 2 tabs daily for 3 days, 1 tab daily for 3 days, 1/2 tab daily for 2 days PREDNISONE 20 MG ORAL T ABLET 526055 PREDNISONE Inactive ZITHROMAX Z-EMIL 250 MG ORAL TABLET 2 today, then 1 daily for 4 d ays ZITHROMAX Z-EMIL 250 MG ORAL TABLET 127345 AZITHROMYCIN Inactive CEFDINIR 300 MG ORAL CAPSULE 1 po BID x 10 days 12/18 CEFDINIR 300 MG ORAL CAPSULE 419056 CEFDINIR Inactive CEFDINIR 300 MG ORAL CAPSULE 1 po BID x 10 days CEFDINIR 300 MG ORAL CAPSULE 507571 CEFDINIR Inactive PREDNISONE 20 MG ORAL TABLET 2 tabs daily for 3 days, 1 tab daily for 3 days, 1/2 tab daily for 2 days PREDNISONE 20 MG ORAL T ABLET 901632 PREDNISONE Inactive BACTRIM DS 800-160 MG ORAL TABLET 1 tab by mouth twice daily 201 05/02/30 BACTRIM DS 800-160 MG ORAL TABLET 903875 TRIMETHOPRIM-SULFAMETHOXAZOLE Inactive Advance Directives Directive Description Start Date [...] 263 10^3/MM^3 10*3/mm3 142-424 Lab Report: Chlamydia/GC [facility]/80121 - Lab chlamydia DNA probe NOT DETECTED NOT DETECTED Lab Report: Chlamydia/[facility]/10209 - Microbiology Neisseria gonorrhoeae DNA probe NOT [...] 5.0-8.5 Encounters Code Encounter Date Provider Facility CPT-94907 Level 3 Est. Patient 11:35:15 POLISHER BALANCE SCREWHEAD Arie mcqueen MD [facility] CPT-70470 Level 3 Est. Patient 15:40:28 CDT Steve [facility]-30841 Level 3 Est. Patient 16:40:36 CDT Arie mcqueen MD [facility] CPT-34394 Level 4 Est. Patient 15:29:22 POLISHER BALANCE SCREWHEAD Arie mcqueen MD [facility] CPT-65658 Level 3 Est. Patient 15:18:16 POLISHER BALANCE SCREWHEAD Jono black DO [facility] CPT-88634 Level 4 Est. Patient 12:08:40 POLISHER BALANCE SCREWHEAD Steve [facility]-72055 Level 3 Est. Patient 09:24:42 CDT Steve [facility]-31784 Level 3 Est. Patient 09:12:56 CDT Arie mcqueen MD [facility] CPT-76675 Level 3 Est. Patient 16:40:54 CDT Jose Zhong MD [facility] CPT-89729 Level 2 Est. Patient 13:01:13 CDT Steve CABRERA [facility]-03782 Level 3 Est. Patient 11:55:30 POLISHER BALANCE SCREWHEAD Jono black DO [facility] CPT-47923 Level 3 Est. Patient 09:52:36 POLISHER BALANCE SCREWHEAD Brii Abhinav so ROSS FURNACE OPERATOR [facility] CPT-38787 Level 3 Est. Patient 16:25:33 POLISHER BALANCE SCREWHEAD Rich Rosales MD [facility]-76629 Level 3 Est. Patient 20:33:55 CDT Arie mcqueen MD [facility] CPT-60625 Level 3 Est. Patient 14:18:20 CDT Rich Rosales MD [facility] CPT-27728 Level 4 Est. Patient 09:34:31 CDT Arie mcqueen MD [facility]-02188 Level 3 Est. Patient 09:08:55 POLISHER BALANCE SCREWHEAD Liliana vincent MD [facility]-98700 Level 3 Est. Patient 16:44:07 POLISHER BALANCE SCREWHEAD Arie mcqueen MD [facility] CPT-49487 Level 3 Est. Patient 10:44:27 CDT Arie mcqueen MD [facility] CPT-64806 Level 3 Est. Patient 08:55:41 CDT Jose Zhong MD [facility] CPT-90557 Level 3 Est. Patient 18:37:31 CDT Liliana vincent MD [facility]-21956 Level 3 Est. Patient 14:28:23 CDT Abelardo HERNANDEZ [facility]-95906 Level 3 Est. Patient 15:18:13 POLISHER BALANCE SCREWHEAD Arie mcqueen MD [facility] CPT-64566 Level 3 Est. Patient 10:11:29 POLISHER BALANCE SCREWHEAD Arie mcqueen MD [facility] CPT-91978 Level 3 Est. Patient 10:55:57 POLISHER BALANCE SCREWHEAD Jono black DO [facility] CPT-72479 Level 3 Est. Patient 17:29:05 CDT Arie mcqueen MD [facility] Procedures Code Procedure Name Date Entry Date Standard Desc ription CPT-07136 Nexplanon Removal 15:40:28 CDT CPT-08202 Sono transvag pelvis non OB uterus ovari es cervix - XRAY USE ONLY 08:58:14 [employer] SCRE[employer] CPT-39112 UA w micro - LAB USE ONLY 16:04:56 [employer] SCREWHEAD 2015 CPT-29550 Wet Prep/GEN - LAB USE ONLY 16:04:56 POLISHER BALANCE SCREWHEAD 20 08/10/29 CPT-85256 First Vx - Ix admin via ID I M or jet injects without counseling by physician 16:57:10 CDT CPT-83854 Fluzone Preservative Free Intramuscular Suspension 16:57:10 CDT CPT-J0696 Rocephin 1000 mg (Ceftriaxone) 11:49:23 CDT CPT-J1040 Depo Medrol 80 mg (Methyl Prednisolone A cetate) 11:49:23 CDT CPT-J1100 Decadron 8mg (Dexamethasone) 11:49:23 CDT 2 CPT-19791 Abx/Therapy Injection 11:49:23 CDT CPT-62194 Abx/Therapy Injection 11:49:23 CDT CPT-76225 Abd compl w upright 09:07:26 [employer] SCREW[employer] CPT-05448 Ear Wash 16:12:47 [employer]ISHER [employer]ANCE SCREWHEAD CPT-OV Office Visit 11:12:01 CDT CPT-OV Office Visit 15:30:23 CDT CPT-69406 Sono pelvis non OB uterus ovaries cervix 15:50:44 CDT CPT-77429 Hand comp min 3V 16:42:32 CDT CPT-33543 Abd compl w upright 12:17:01 CDT CPT-08605 Nexplanon Placement 15:07:39 [employer]ISHER [employer]ANCE SCREWHEAD CPT-53310 Removal of IUD 15:07:39 POLISHER BALANCE SCREWHEAD CPT-45620 TB Tubersol 12:09:32 CDT CPT-02725 TB Tubersol 13:55:43 CDT
--- OUTSIDE RECORDS SUMMARY | 2020-03-03 07:24 | XMS REPORT | Clinical Summary ---
Author Author Admin, Diamante Marcelo Organization [employer] Address Unknown Phone Unavailable Allergies, Adverse Reactions, [...] implantable subdermal contraceptiv e Active Brii Russ STACKING 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 Vaginal bleeding 623.8 Active Arie Casper MD Other specified noninflammatory disorders of vagina Influenza like illness 487.1 Active Jose Mcwilliams MD Influenza with other respiratory manifestations Sinusitis 473.9 Active Jessica Heaton STACKING 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 Unspecified sinusitis (chronic) BREAST CANCER ICD-V16.3 Inactive [...] Generic Name NDC Status Provider Patient Instruction ZITHROMAX Z-EMIL 250 MG TABS Take two tablets today and then 1 tablet daily for 4 days AZITHROMYCIN 63261391728 Active Rich Marcelo Active GUAIFENESIN DM 400-20 MG ORAL TABLET 1 pill by mouth t wice daily, if needed for cough DEXTROMETHORPHAN-GUAIFENESIN 06967812673 No Longer Active Rich Rosales MD Active TUSSIONEX PENNKINETIC ER 10-8 MG/5ML ORAL SUSPENSION E XTENDED RELEASE 5ml po q12hr PRN Cough HYDROCOD POLST-CHLORPHEN POLST 68599445353 Active Rich Rosales MD Active CEFDINIR 300 MG ORAL CAPSULE 1 po BID x 10 days CEFDINIR 10188986675 No Longer Active Jillina Florina STACKING 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 Active CHERATUSSIN AC 100-10 MG/5ML ORAL SYRUP 1 tsp by mouth every 4 hours as needed for cough GUAIFENESIN-CODEINE 82929093596 No Longe r Active Jillina Fradeepl STACKING 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 Active TAMIFLU 75 MG ORAL CAPSULE 1 po BID x 5 days 0 OSELTAMIVIR PHOSPHATE 54158748314 No Longer Active Jose Zhong MD Activ e ZITHROMAX Z-EMIL 250 MG ORAL TABLET 2 today, then 1 daily for 4 d ays AZITHROMYCIN 79404189704 No Longer Active Arie Casper MD Active PROTONIX 40 MG ORAL TABLET DELAYED RELEASE 1 po q a.m. PANTOPRAZOLE SODIUM 20910150461 No Longer Active Arie Casper MD Active BACTRIM DS 800-160 MG ORAL TABLET 1 tab by mouth twice daily 201 05/02/30 TRIMETHOPRIM-SULFAMETHOXAZOLE 59243879556 No Longer Active R [facility] Active NEXPLANON IMPLANT right arm subcutaneously ETONOGESTREL IMPL 99750875242 No Longer Active Brii Russ APRN Active TUSSIONEX PENNKINETIC ER 10-8 MG/5ML ORAL SUSPENSION E XTENDED RELEASE 5ml po q12hr PRN Cough HYDROCOD POLST-CHLORPHEN POLST 5 0021766709 No Longer Active Brii Russ APRN Active CETIRIZINE HCL 10 MG ORAL TABLET 1 po qd PRN Allergies CETIRIZINE HCL 57155382119 No Longer Active Brii Russ APRN Activ e PREDNISONE 20 MG ORAL TABLET 2 tabs daily for 3 days, 1 tab daily for 3 days, 1/2 tab daily for 2 days PREDNISONE 61047781173 No Longer Active Arie Casper MD Active LOMOTIL 2.5-0.025 MG ORAL TABLET 1 tab po four times a day as needed for diarrhea DIPHENOXYLATE-ATROPINE 80918645240 No Lo nger Active Arie Casper MD Active ZOLOFT 50 MG ORAL TABLET 1 tablet by mouth daily 12/08 SERTRALINE HCL 87393498275 No Longer Active Arie Casper MD Ac tive NAPROXEN 500 MG ORAL TABLET Take 1 tab BID NAPR OXEN 92059521209 No Longer Active Arie Casper MD Active CEFDINIR 300 MG ORAL CAPSULE 1 po BID x 10 days CEFDINIR 00059628326 No Longer Active Brii Russ APRN Active PREDNISONE 20 MG ORAL TABLET 1 tablet daily for airway inflammat ion PREDNISONE 72690589152 No Longer Active Brii Russ APRN A ctive CEFDINIR 300 MG ORAL CAPSULE 1 po BID x 10 days CEFDINIR 40878379076 No Longer Active Jono Gagnon DO Active FLONASE 50 MCG/ACT NASAL SUSPENSION 1 spray each nostr il twice daily for allergies and runny nose until gone FLUT ICASONE PROPIONATE 28381388875 No Longer Active Jono Gagnon DO Active ALPRAZOLAM 0.25 MG ORAL TABLET 1 tablet by mouth every 8 hours as needed for stress ALPRAZOLAM 33586724237 No Longer Active Jono Gagnon DO Active ZITHROMAX Z-EMIL 250 MG ORAL TABLET 2 today, then 1 daily for 4 d ays AZITHROMYCIN 41149752750 No Longer Active Arie Casper MD Active PREDNISONE 20 MG ORAL TABLET 2 tabs daily for 3 days, 1 tab daily for 3 days, 1/2 tab daily for 2 days PREDNISONE 30201625976 No Longer Active Brii Russ APRN Active PREDNISONE 20 MG ORAL TABLET 1 tablet twice daily for 2 days, then 1 tablet once daily for 2 days PREDNISONE 15339811764 No Longer Active Brii Russ APRN Active PROMETHAZINE HCL 12.5 MG ORAL TABLET 1 tablet by mouth every 6 hours as needed for nausea/vomiting PROMETHAZINE HCL 88235511490 No L onger Active Jono Gagnon DO Active CITRATE OF MAGNESIA ORAL SOLUTION 1 bottle today for constipatio n MAGNESIUM CITRATE 33523534263 No Longer Active Jono Gagnon DO Active ZOFRAN 4 MG ORAL TABLET 1 TAB PO Q 6 HRS PRN NAUSEA 07/10/15 ONDANSETRON HCL 26721877163 No Longer Active Brii Russ APRN Acti ve LOMOTIL 2.5-0.025 MG ORAL TABLET 1 to 2 four times a day as needed for diarrhea DIPHENOXYLATE-ATROPINE 17782914541 No Longer Active January Russ APRN Active AMOXICILLIN 500 MG ORAL TABLET 2 tabs twice a day for 10 days 20 07/09/11 AMOXICILLIN 52988489955 No Longer Active Brii Russ APRN Active CYCLOBENZAPRINE HCL 10 MG ORAL TABLET 1/2 - 1 tablet b y mouth three times daily as needed for muscle spasm/pain CYCLOBENZAPRINE HCL 25877059695 No Longer Active Arie Casper MD Active LOMOTIL 2.5-0.025 MG ORAL TABLET 1 to 2 four times a day as needed for diarrhea DIPHENOXYLATE-ATROPINE 34278975950 No Longer Active Fozia Casper MD Active MACROBID 100 MG ORAL CAPSULE 1 cap by mouth twice daily NITROFURANTOIN MONOHYD MACRO 15112114789 No Longer Active Arie Casper MD Active ZYRTEC ALLERGY 10 MG ORAL CAPSULE 1 po qd CE TIRIZINE HCL 26586861450 No Longer Active Arie Casper MD Active AZITHROMYCIN 250 MG ORAL TABLET 2 po qd x 1 day, then 1 po q d x 4 days AZITHROMYCIN 14800370548 No Longer Active Jillina Fra naomi STACKING 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 Active PREDNISONE 20 MG ORAL TABLET 2 tabs daily for 3 days, 1 tab daily for 3 days, 1/2 tab daily for 2 days PREDNISONE 65723343601 No Longer Active Jillina Florina STACKING 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 Active PROMETHAZINE HCL 25 MG ORAL TABLET 1 four times a day as nee ded for vomiting PROMETHAZINE HCL 37243364448 No Longer Active Myrna Roberto MD Active BACTRIM DS 800-160 MG ORAL TABLET 1 twice a day 05/30 SULFAMETHOXAZOLE-TRIMETHOPRIM 60028001226 No Longer Active Myrna Roberto MD Active VICKS DAYQUIL SEVERE COLD/FLU TABLET 1 tab every 6 hours prn 201 02/22/17 [id number] TABS 53961740197 No Longer Active Chris Roberto MD Active GUAIFENESIN-CODEINE 100-10 MG/5ML ORAL SYRUP 2 tsp every 6 hours prn GUAIFENESIN-CODEINE 17896166986 No Longer Active Myrna Roberto MD Active NAPROXEN 500 MG ORAL TABLET one tab PO BID NAPR OXEN 82566667605 No Longer Active Myrna Roberto MD Active AUGMENTIN 875-125 MG ORAL TABLET 1 tab by mouth twice daily with food AMOXICILLIN-POT CLAVULANATE 81195490024 No Longer Act zaid Liliana Estrada MD PhD Active AMOXICILLIN 500 MG ORAL CAPSULE 1 tab by mouth 3 times daily 201 02/21/05 AMOXICILLIN 28419379966 No Longer Active Liliana Estrada MD PhD Active TESSALON PERLES 100 MG ORAL CAPSULE 1 tablet by mouth 3 times da cory BENZONATATE 82536737280 No Longer Active Liliana Estrada MD PhD Active FLAGYL 500 MG ORAL TABLET 1 tablet by mouth two times daily 2014 METRONIDAZOLE 47527959303 No Longer Active Nilam Gus Ac tive ZITHROMAX 250 MG ORAL TABLET 2 po today, then 1 po q days 2-5 20 06/08/16 AZITHROMYCIN 27109671778 No Longer Active Arie Casper MD Active VITAMINS 0.8 MG ORAL TABLET take 1 tab po qday [id number] 77790471519 No Longer Active Arie Casper MD Active IBUPROFEN 800 MG ORAL TABLET take one po Q 8 hours 201 02/01/16 IBUPROFEN 11434335202 No Longer Active Arie Casper MD Acti ve [facility] TUSSIN COUGH/COLD CF 5-10-100 MG/5ML ORAL LIQUID 2 teasp oons every 4 hours [id number] 68091464846 No Longer Active Blaine Casper MD Active COMTREX COLD/COUGH DAY/NITE MS 5-2-10-325 MG ORAL 2 caps deja ry 4 hours [id number] 08817247450 No Longer Active Landon Casper MD Active CHLORASEPTIC MAX SORE THROAT 15-10 MG MOUTH/THROAT LOZENGE 1 every 2 hours prn BENZOCAINE-MENTHOL 71799749560 No Longer Active Arie Casper MD Active PREDNISONE 20 MG ORAL TABLET 2 tabs daily for 3 days, 1 tab daily for 3 days, 1/2 tab daily for 2 days PREDNISONE 54635435471 No Longer Active Jose Zhong MD Active AZITHROMYCIN 250 MG ORAL TABLET 2 po qd x 1 day, then 1 po q d x 4 days AZITHROMYCIN 67898416584 No Longer Active Jose Mcwilliams MD Active ZOFRAN ODT 4 MG ORAL TABLET DISINTEGRATING 1 po q6hr PRN Nausea ONDANSETRON 37286681764 No Longer Active Rich Rosales MD Active ZOFRAN 4 MG ORAL TABLET 1 tablet every 4 hours ONDANSETRON HCL 44992017909 No Longer Active Rich Rosales MD Activ e MUCINEX 600 MG ORAL TABLET EXTENDED RELEASE 12 HOUR Ta ke 1-2 tablets every 12 hours GUAIFENESIN 24066989955 No Longer Active Rich Rosales MD Active BACTRIM 400-80 MG ORAL TABLET take one po BID SULFAMETHOXAZOLE-TRIMETHOPRIM 09128601085 No Longer Active Abelardo HERNANDEZ Active AZITHROMYCIN 500 MG ORAL TABLET 1 PO q day x 6 days 20 03/02/23 AZITHROMYCIN 92840526639 No Longer Active Tin HERNANDEZ Activ e ZITHROMAX 250 MG ORAL TABLET 2 po today, then 1 po q days 2-5 20 10/03/08 AZITHROMYCIN 64706576915 No Longer Active Arie Casper MD Active ZITHROMAX 250 MG ORAL TABLET 2 po today, then 1 po q days 2-5 20 09/23/25 AZITHROMYCIN 02094823586 No Longer Active Arie Casper MD Active AMOXICILLIN 500 MG ORAL CAPSULE 1 tab by mouth 3 times daily 201 11/24/09 AMOXICILLIN 86327874776 No Longer Active Arie Casper MD Active BACTRIM DS 800-160 MG ORAL TABLET 1 tab by mouth twice daily 201 11/03/14 TRIMETHOPRIM-SULFAMETHOXAZOLE 97054378309 No Longer Active Fozia Casper MD Active AMOXICILLIN 500 MG ORAL TABLET take 1 tab po TID 08/05 AMOXICILLIN 02687371564 No Longer Active Arie Casper MD Acti ve BACTRIM DS 800-160 MG ORAL TABLET 1 tab by mouth twice daily 201 11/03/14 BACTRIM DS 800-160 MG ORAL TABLET 691582 TRIMETHOPRIM-SULFAMETHOXAZOLE Inactive MUCINEX 600 MG ORAL TABLET EXTENDED RELEASE 12 HOUR Ta ke 1-2 tablets every 12 hours MUCINEX 600 MG ORAL TABLET EXTENDED RELEA SE 12 HOUR GUAIFENESIN Inactive ZOFRAN 4 MG ORAL TABLET 1 tablet every 4 hours ZOFRAN 4 MG ORAL TABLET 576513 ONDANSETRON HCL Inactive ZOFRAN ODT 4 MG ORAL TABLET DISINTEGRATING 1 po q6hr PRN Nausea ZOFRAN ODT 4 MG ORAL TABLET DISINTEGRATING 297182 ONDAN SETRON Inactive CHLORASEPTIC MAX SORE THROAT 15-10 MG MOUTH/THROAT LOZENGE 1 every 2 hours prn CHLORASEPTIC MAX SORE THROAT 15-10 MG MOUTH/THROAT LOZENGE BENZOCAINE-MENTHOL Inactive COMTREX COLD/COUGH DAY/NITE MS 5-2-10-325 MG ORAL 2 caps deja ry 4 hours COMTREX COLD/COUGH DAY/NITE MS 5-2-10-325 MG ORA L [id number] Inactive [facility] TUSSIN COUGH/COLD CF 5-10-100 MG/5ML ORAL LIQUID 2 teasp oons every 4 hours [facility] TUSSIN COUGH/COLD CF 5-10-100 MG/5ML ORAL LI QUID [id number] Inactive IBUPROFEN 800 MG ORAL TABLET take one po Q 8 hours 201 02/01/16 IBUPROFEN 800 MG ORAL TABLET IBUPROFEN Inactive VITAMINS 0.8 MG ORAL TABLET take 1 tab po qday VITAMINS 0.8 MG ORAL TABLET [id number] Inactive TESSALON PERLES 100 MG ORAL CAPSULE 1 tablet by mouth 3 times da cory TESSALON PERLES 100 MG ORAL CAPSULE 088420 BENZONATATE Inactive AMOXICILLIN 500 MG ORAL CAPSULE 1 tab by mouth 3 times daily 201 02/21/05 AMOXICILLIN 500 MG ORAL CAPSULE 425354 AMOXICILLIN Inactive GUAIFENESIN-CODEINE 100-10 MG/5ML ORAL SYRUP 2 tsp every 6 hours prn GUAIFENESIN-CODEINE 100-10 MG/5ML ORAL SYRUP 563350 GUAIFENESIN-CODEINE Inactive VICKS DAYQUIL SEVERE COLD/FLU TABLET 1 tab every 6 hours prn 201 02/22/17 VICKS DAYQUIL SEVERE COLD/FLU TABLET PHENYLEPHRI [id number] TABS Inactive BACTRIM DS 800-160 MG ORAL TABLET 1 twice a day 05/30 BACTRIM DS 800-160 MG ORAL TABLET 308173 SULFAMETHOXAZOLE-TRIMETHOPRIM Inactiv e PROMETHAZINE HCL 25 MG ORAL TABLET 1 four times a day as nee ded for vomiting PROMETHAZINE HCL 25 MG ORAL TABLET 730805 PROMETHAZINE HCL Inactive ZYRTEC ALLERGY 10 MG ORAL CAPSULE 1 po qd ZYRTEC ALLERGY 10 MG ORAL CAPSULE CETIRIZINE HCL Inactive MACROBID 100 MG ORAL CAPSULE 1 cap by mouth twice daily MACROBID 100 MG ORAL CAPSULE 9589654 NITROFURANTOIN MONOHYD MACRO In active LOMOTIL 2.5-0.025 MG ORAL TABLET 1 to 2 four times a day as needed for diarrhea LOMOTIL 2.5-0.025 MG ORAL TABLET 4232467 DIPHENOXYLATE-ATROPINE Inactive CYCLOBENZAPRINE HCL 10 MG ORAL TABLET 1/2 - 1 tablet b y mouth three times daily as needed for muscle spasm/pain CYCLOBEN ZAPRINE HCL 10 MG ORAL TABLET 354638 CYCLOBENZAPRINE HCL Inactive AMOXICILLIN 500 MG ORAL TABLET 2 tabs twice a day for 10 days 20 07/09/11 AMOXICILLIN 500 MG ORAL TABLET 069152 AMOXICILLIN I nactive LOMOTIL 2.5-0.025 MG ORAL TABLET 1 to 2 four times a day as needed for diarrhea LOMOTIL 2.5-0.025 MG ORAL TABLET 9912411 DIPHENOXYLATE-ATROPINE Inactive ZOFRAN 4 MG ORAL TABLET 1 TAB PO Q 6 HRS PRN NAUSEA 20 07/10/15 ZOFRAN 4 MG ORAL TABLET 005951 ONDANSETRON HCL Inactive CITRATE OF MAGNESIA ORAL SOLUTION 1 bottle today for constipatio n CITRATE OF MAGNESIA ORAL SOLUTION 9944054 MAGNESIUM CITR ATE Inactive PROMETHAZINE HCL 12.5 MG ORAL TABLET 1 tablet by mouth every 6 hours as needed for nausea/vomiting PROMETHAZINE HCL 12.5 MG ORA L TABLET 242096 PROMETHAZINE HCL Inactive PREDNISONE 20 MG ORAL TABLET 1 tablet twice daily for 2 days, then 1 tablet once daily for 2 days PREDNISONE 20 MG ORAL TABLET 574370 PREDNISONE Inactive ALPRAZOLAM 0.25 MG ORAL TABLET 1 tablet by mouth every 8 hours as needed for stress ALPRAZOLAM 0.25 MG ORAL TABLET 290457 ALPRA ZOLAM Inactive FLONASE 50 MCG/ACT NASAL SUSPENSION 1 spray each nostr il twice daily for allergies and runny nose until gone FLON ASE 50 MCG/ACT NASAL SUSPENSION 6104867 FLUTICASONE PROPIONATE Inactive PREDNISONE 20 MG ORAL TABLET 1 tablet daily for airway inflammat ion PREDNISONE 20 MG ORAL TABLET 782682 PREDNISONE Arlen ctive NAPROXEN 500 MG ORAL TABLET Take 1 tab BID NAPROXEN 500 MG ORAL TABLET 859666 NAPROXEN Inactive ZOLOFT 50 MG ORAL TABLET 1 tablet by mouth daily 12/08 ZOLOFT 50 MG ORAL TABLET 827893 SERTRALINE HCL Inactive LOMOTIL 2.5-0.025 MG ORAL TABLET 1 tab po four times a day as needed for diarrhea LOMOTIL 2.5-0.025 MG ORAL TABLET 5411658 DIPHENOXYLATE-ATROPINE Inactive CETIRIZINE HCL 10 MG ORAL TABLET 1 po qd PRN Allergies CETIRIZINE HCL 10 MG ORAL TABLET 5461355 CETIRIZINE HCL Inactiv e TUSSIONEX PENNKINETIC ER 10-8 MG/5ML ORAL SUSPENSION E XTENDED RELEASE 5ml po q12hr PRN Cough TUSSIONEX PENNKINETI C ER 10-8 MG/5ML ORAL SUSPENSION EXTENDED RELEASE HYDROCOD POLST-CHLORPHEN POLST I nactive NEXPLANON IMPLANT right arm subcutaneously NEXPLANON IMPLANT ETONOGESTREL IMPL Inactive PROTONIX 40 MG ORAL TABLET DELAYED RELEASE 1 po q a.m. PROTONIX 40 MG ORAL TABLET DELAYED RELEASE 035727 PANTOPRAZOLE SODI UM Inactive CHERATUSSIN AC 100-10 MG/5ML ORAL SYRUP 1 tsp by mouth every 4 hours as needed for cough CHERATUSSIN AC 100-10 MG/5ML ORAL SYRUP 9 60879 GUAIFENESIN-CODEINE Inactive GUAIFENESIN DM 400-20 MG ORAL TABLET 1 pill by mouth t wice daily, if needed for cough GUAIFENESIN DM 400-20 MG ORAL TABLET 1147 685 DEXTROMETHORPHAN-GUAIFENESIN Inactive AMOXICILLIN 500 MG ORAL TABLET take 1 tab po TID 08/05 AMOXICILLIN 500 MG ORAL TABLET 732797 AMOXICILLIN Inactive AMOXICILLIN 500 MG ORAL CAPSULE 1 tab by mouth 3 times daily 201 11/24/09 AMOXICILLIN 500 MG ORAL CAPSULE 774314 AMOXICILLIN Inactive ZITHROMAX 250 MG ORAL TABLET 2 po today, then 1 po q days 2-5 20 09/23/25 ZITHROMAX 250 MG ORAL TABLET 749042 AZITHROMYCIN Forbes ctive ZITHROMAX 250 MG ORAL TABLET 2 po today, then 1 po q days 2-5 20 10/03/08 ZITHROMAX 250 MG ORAL TABLET 681909 AZITHROMYCIN Forbes ctive AZITHROMYCIN 500 MG ORAL TABLET 1 PO q day x 6 days 20 03/02/23 AZITHROMYCIN 500 MG ORAL TABLET 7903370 AZITHROMYCIN Inactive BACTRIM 400-80 MG ORAL TABLET take one po BID BACTRIM 400- 80 MG ORAL TABLET 766316 SULFAMETHOXAZOLE-TRIMETHOPRIM Inactive AZITHROMYCIN 250 MG ORAL TABLET 2 po qd x 1 day, then 1 po q d x 4 days AZITHROMYCIN 250 MG ORAL TABLET 465849 AZITHROMY ALLISON Inactive PREDNISONE 20 MG ORAL TABLET 2 tabs daily for 3 days, 1 tab daily for 3 days, 1/2 tab daily for 2 days PREDNISONE 20 MG ORAL T ABLET 729862 PREDNISONE Inactive ZITHROMAX 250 MG ORAL TABLET 2 po today, then 1 po q days 2-5 20 06/08/16 ZITHROMAX 250 MG ORAL TABLET 309150 AZITHROMYCIN Arlen ctive FLAGYL 500 MG ORAL TABLET 1 tablet by mouth two times daily 2014 FLAGYL 500 MG ORAL TABLET 961444 METRONIDAZOLE Inacti ve AUGMENTIN 875-125 MG ORAL TABLET 1 tab by mouth twice daily with food AUGMENTIN 875-125 MG ORAL TABLET 683217 AMOXICIL ELSA-POT CLAVULANATE Inactive NAPROXEN 500 MG ORAL TABLET one tab PO BID NAPROXEN 500 MG ORAL TABLET 431511 NAPROXEN Inactive PREDNISONE 20 MG ORAL TABLET 2 tabs daily for 3 days, 1 tab daily for 3 days, 1/2 tab daily for 2 days PREDNISONE 20 MG ORAL T ABLET 906623 PREDNISONE Inactive AZITHROMYCIN 250 MG ORAL TABLET 2 po qd x 1 day, then 1 po q d x 4 days AZITHROMYCIN 250 MG ORAL TABLET 606499 AZITHROMY ALLISON Inactive PREDNISONE 20 MG ORAL TABLET 2 tabs daily for 3 days, 1 tab daily for 3 days, 1/2 tab daily for 2 days PREDNISONE 20 MG ORAL T ABLET 379125 PREDNISONE Inactive ZITHROMAX Z-EMIL 250 MG ORAL TABLET 2 today, then 1 daily for 4 d ays ZITHROMAX Z-EMIL 250 MG ORAL TABLET 478492 AZITHROMYCIN Inactive CEFDINIR 300 MG ORAL CAPSULE 1 po BID x 10 days 12/18 CEFDINIR 300 MG ORAL CAPSULE 092004 CEFDINIR Inactive CEFDINIR 300 MG ORAL CAPSULE 1 po BID x 10 days CEFDINIR 300 MG ORAL CAPSULE 20030127 CEFDINIR Inactive PREDNISONE 20 MG ORAL TABLET 2 tabs daily for 3 days, 1 tab daily for 3 days, 1/2 tab daily for 2 days PREDNISONE 20 MG ORAL T ABLET 450191 PREDNISONE Inactive BACTRIM DS 800-160 MG ORAL TABLET 1 tab by mouth twice daily 201 05/02/30 BACTRIM DS 800-160 MG ORAL TABLET 422143 TRIMETHOPRIM-SULFAMETHOXAZOLE Inactive ZITHROMAX Z-EMIL 250 MG ORAL TABLET 2 today, then 1 daily for 4 d ays ZITHROMAX Z-EMIL 250 MG ORAL TABLET 404517 AZITHROMYCIN Inactive TAMIFLU 75 MG ORAL CAPSULE 1 po BID x 5 days 0 TAMIFLU 75 MG ORAL CAPSULE 575345 OSELTAMIVIR PHOSPHATE Inactive CEFDINIR 300 MG ORAL CAPSULE 1 po BID x 10 days 01/03 CEFDINIR 300 MG ORAL CAPSULE 20030127 CEFDINIR Inactive Advance Directives Directive Description [...] Unit Range Description Lab Report: CBC, [facility] Hematology leukocyte count, blood 7.8 10^3/MM^3 [...] 5.0-8.5 Encounters Code Encounter Date Provider Facility CPT-45861 Level 3 Est. Patient 11:49:34 BRAZING MACHINE TENDER Jessica boyd [facility] [place] CPT-03675 Level 3 Est. Patient 14:55:50 BRAZING MACHINE TENDER Jose Zhong MD [facility] CPT-96347 Level 3 Est. Patient 10:21:41 BRAZING MACHINE TENDER Arie mcqueen MD [facility] CPT-08226 Level 3 Est. Patient 11:35:15 BRAZING MACHINE TENDER Arie mcqueen MD [facility] CPT-62925 Level 3 Est. Patient 15:40:28 CDT Brii Are ll [facility] [place] CPT-11489 Level 3 Est. Patient 16:40:36 CDT Arie mcqueen MD [facility] CPT-19373 Level 4 Est. Patient 15:29:22 BRAZING MACHINE TENDER Arie mcqueen MD [facility] CPT-38137 Level 3 Est. Patient 15:18:16 BRAZING MACHINE TENDER Jono black [facility] CPT-26746 Level 4 Est. Patient 12:08:40 BRAZING MACHINE TENDER Brii Are ll [facility] [place] CPT-69759 Level 3 Est. Patient 09:24:42 CDT Brii Are ll [facility] [place] CPT-56847 Level 3 Est. Patient 09:12:56 CDT Arie mcqueen MD [facility] CPT-48528 Level 3 Est. Patient 16:40:54 CDT Jose Zhong MD [facility] CPT-60822 Level 2 Est. Patient 13:01:13 CDT Brii Are ll [facility] [place] CPT-29939 Level 3 Est. Patient 11:55:30 BRAZING MACHINE TENDER Jono black [facility] CPT-53338 Level 3 Est. Patient 09:52:36 BRAZING MACHINE TENDER Brii Are ll STACKING 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 [facility] CPT-66209 Level 3 Est. Patient 16:25:33 BRAZING MACHINE TENDER Rich Rosales MD [facility] CPT-17273 Level 3 Est. Patient 20:33:55 CDT Arie mcqueen MD [facility] CPT-63959 Level 3 Est. Patient 14:18:20 CDT Rich Rosales MD [facility] CPT-08260 Level 4 Est. Patient 09:34:31 CDT Arie mcqueen MD [facility] CPT-52425 Level 3 Est. Patient 09:08:55 BRAZING MACHINE TENDER Liliana vincent MD PhD [facility] CPT-83227 Level 3 Est. Patient 16:44:07 BRAZING MACHINE TENDER Arie mcqueen MD [facility] CPT-51287 Level 3 Est. Patient 10:44:27 CDT Arei mcqueen MD [facility] CPT-06707 Level 3 Est. Patient 08:55:41 CDT Jose Zhong MD [facility] CPT-27373 Level 3 Est. Patient 18:37:31 CDT Liliana vincent MD [facility] CPT-73796 Level 3 Est. Patient 14:28:23 CDT Abelardo HERNANDEZ [facility] CPT-26474 Level 3 Est. Patient 15:18:13 BRAZING MACHINE TENDER Arie mcqueen MD [facility] CPT-34275 Level 3 Est. Patient 10:11:29 BRAZING MACHINE TENDER Arie mcqueen MD [facility] CPT-22876 Level 3 Est. Patient 10:55:57 BRAZING MACHINE TENDER Jono black DO [facility] CPT-42026 Level 3 Est. Patient 17:29:05 CDT Arie mcqueen MD [facility] Procedures Code Procedure Name Date Entry Date Standard Desc ription CPT-33852 Nexplanon Removal 15:40:28 CDT CPT-51597 Sono transvag pelvis non OB uterus ovari es cervix - XRAY USE ONLY 08:58:14 BRAZING MACHINE TENDER CPT-17401 UA w micro - LAB USE ONLY 16:04:56 BRAZING MACHINE TENDER 2015 CPT-65752 Wet Prep/GEN - LAB USE ONLY 16:04:56 BRAZING MACHINE TENDER 20 08/10/29 CPT-11046 First Vx - Ix admin via ID I M or jet injects without counseling by physician 16:57:10 CDT CPT-97979 Fluzone Preservative Free Intramuscular Suspension 16:57:10 CDT CPT-J0696 Rocephin 1000 mg (Ceftriaxone) 11:49:23 CDT CPT-J1040 Depo Medrol 80 mg (Methyl Prednisolone A cetate) 11:49:23 CDT CPT-J1100 Decadron 8mg (Dexamethasone) 11:49:23 CDT 2 CPT-65601 Abx/Therapy Injection 11:49:23 CDT CPT-42839 Abx/Therapy Injection 11:49:23 CDT CPT-10709 Abd compl w upright 09:07:26 BRAZING MACHINE TENDER CPT-49806 Ear Wash 16:12:47 BRAZING MACHINE TENDER CPT-OV Office Visit 11:12:01 CDT CPT-OV Office Visit 15:30:23 CDT CPT-40024 Sono pelvis non OB uterus ovaries cervix 15:50:44 CDT CPT-87687 Hand comp min 3V 16:42:32 CDT CPT-25913 Abd compl w upright 12:17:01 CDT CPT-86305 Nexplanon Placement 15:07:39 BRAZING MACHINE TENDER CPT-17790 Removal of IUD 15:07:39 BRAZING MACHINE TENDER CPT-95091 TB Tubersol 12:09:32 CDT CPT-26599 TB Tubersol 13:55:43 CDT
--- NOTE | 2020-03-03 07:25 | Discharge Inst-Women's Service ---
Discharge Inst-Women's Serv Depart Medication/Instructions New, Converted or Re-Newed RX: RX on Chart Final Diagnosis POD 2 RLTCS Problems Reviewed?: Yes Consults/Follow Up Additional Follow Up: Yes Orders/Referrals Dr. Mitchell in 7-[address] De Leon in 6 weeks Activity Activity: Activity as Tolerated Driving Instructions: No Driving for 1 Week NO SMOKING: NO SMOKING Nothing Inside Vagina: No Douching, No [place], No Tampons Diet Discharge Diet: No Restrictions Symptoms to Report to : Bleeding Excessive, Pain Increased, Fever Over 101 Degrees F, Vaginal Bleeding Increase, Questions/Concerns For Any Problems or Questions: Contact Your Physician Skin/Wound Care Infection Signs and Symptoms: Increased Redness, Foul Odor of Wound, Increased Drainage, Skin Itchy or Has a Rash, Increased Swelling, Temperature Above 101 F Operative Area Clean and Dry: Keep Incision Clean/Dry Stitches/[place]/Dermabond: Dermabond, Care of Stitches Bathing Instructions: MARYANA Mckeon DO March 03, 2020 07:25
--- OUTSIDE RECORDS SUMMARY | 2020-03-03 07:25 | XMS REPORT | Clinical Summary ---
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 Nausea alone COLON CANCER ICD-V16.0 Inactive Jose Zhong MD [...] Generic Name NDC Status Provider Patient Instruction ZOFRAN 4 MG ORAL TABS 1 TAB PO Q 6 HRS PRN NAUSEA 2014 ONDANSETRON HCL 46409339529 No Longer Active Brii Larson APRN A ctive LOMOTIL 2.5-0.025 MG TAB 1 to 2 four times a day as needed f or diarrhea DIPHENOXYLATE-ATROPINE 69067465536 No Longer Active January carballo Neo CABRERA Active CITRATE OF MAGNESIA ORAL SOLN 1 bottle today for constipation 10/07 MAGNESIUM CITRATE 26330445054 Active Brii Larson APRN Act zaid PROMETHAZINE HCL 12.5 MG TABS 1 tablet by mouth every 6 hours as needed for nausea/vomiting PROMETHAZINE HCL 59880461304 Active Me lobito Larson SWITCHBOARD OPERATOR ASSISTANT Active AMOXICILLIN 500 MG TABS 2 tabs twice a day for 10 days AMOXICILLIN 90556949545 No Longer Active Briiarnaldo Larson APRN Acti ve NEXPLANON IMPL ETONOGESTREL IMPL 92218370012 Active Rich Rosales MD Active CYCLOBENZAPRINE HCL 10 MG TABS 1/2 - 1 tablet by mouth three times daily as needed for muscle spasm/pain CYCLOBENZAPRINE HCL 80175673135 No Longer Active Arie Casper MD Active LOMOTIL 2.5-0.025 MG TABS 1 to 2 four times a day as needed for diarrhea DIPHENOXYLATE-ATROPINE 23307797794 No Longer Active Fozia Casper MD Active MACROBID 100 MG CAP 1 cap by mouth twice daily NITROFURANTOIN MONOHYD MACRO 48911373943 No Longer Active Arie Casper MD Active ZYRTEC ALLERGY 10 MG CAPS 1 po qd CETIRIZINE HCL 63498035741 No Longer Active Arie Casper MD Active AZITHROMYCIN 250 MG TABS 2 po qd x 1 day, then 1 po qd x 4 days AZITHROMYCIN 96852793812 No Longer Active Jillina Florina SWITCHBOARD OPERATOR ASSISTANT Active PREDNISONE 20 MG TAB 2 tabs daily for 3 days, 1 t ab daily for 3 days, 1/2 tab daily for 2 days PREDNISONE 82017412885 No Longer Active Jillina Franaomi SWITCHBOARD OPERATOR ASSISTANT Active PROMETHAZINE HCL 25 MG TABS 1 four times a day as needed for vomiting PROMETHAZINE HCL 22861070405 No Longer Active Myrna Roberto MD Active BACTRIM DS 800-160 MG TABS 1 twice a day SULFAMETHOXAZOLE-TRIMETHOPRIM 70467426294 No Longer Active Myrna Roberto MD Active VICKS DAYQUIL SEVERE COLD/FLU TABS 1 tab every 6 hours prn 12/10 [id number] TABS 20460593172 No Longer Active Myrna leigh MD Active GUAIFENESIN-CODEINE 100-10 MG/5ML ORAL SYRP 2 tsp every 6 hours prn GUAIFENESIN-CODEINE 16948513119 No Longer Active Myrna Roberto MD Active NAPROXEN 500 MG TAB one tab PO BID NAPROXEN 332 58207275 No Longer Active Myrna Roberto MD Active AUGMENTIN 875-125 MG TAB 1 tab by mouth twice daily with food 08/12/16 AMOXICILLIN-POT CLAVULANATE 62744300201 No Longer Active Liliaan Estrada MD PhD Active AMOXICILLIN 500 MG CAP 1 tab by mouth 3 times daily 08/12/16 AMOXICILLIN 08834155335 No Longer Active Liliana Estrada MD PhD Acti ve TESSALON PERLES 100 MG CAP 1 tablet by mouth 3 times daily 11/01 BENZONATATE 36062217615 No Longer Active Liliana Estrada MD PhD Active FLAGYL 500 MG TAB 1 tablet by mouth two times daily 20 07/11/29 METRONIDAZOLE 41594367559 No Longer Active Nilam Weber Active ZITHROMAX 250 MG TAB 2 po today, then 1 po q days 2-5 AZITHROMYCIN 77387167486 No Longer Active Arie Casper MD Acti ve VITAMINS 0.8 MG TABS take 1 tab po qday 08/08 [id number] 17906358096 No Longer Active Arie Casper MD Active IBUPROFEN 800 MG TABS take one po Q 8 hours IBU PROFEN 32067887876 No Longer Active Arie Casper MD Active [facility] TUSSIN COUGH/COLD CF 5-10-100 MG/5ML LIQD 2 teaspoons ev eliud 4 hours [id number] 30406159826 No Longer Active Blaine Casper MD Active COMTREX COLD/COUGH DAY/NITE MS 5-2-10-325 MG MISC 2 caps deja ry 4 hours [id number] 40805017856 No Longer Active Da aleksandra Casper MD Active CHLORASEPTIC MAX SORE THROAT 15-10 MG LOZG 1 every 2 hours prn 2 BENZOCAINE-MENTHOL 16513673106 No Longer Active Arie Marcelo Active PREDNISONE 20 MG TAB 2 tabs daily for 3 days, 1 t ab daily for 3 days, 1/2 tab daily for 2 days PREDNISONE 73553016122 No Longer Active Jose Zhong MD Active AZITHROMYCIN 250 MG TABS 2 po qd x 1 day, then 1 po qd x 4 days AZITHROMYCIN 86902904671 No Longer Active Jose Zhong MD Active ZOFRAN ODT 4 MG TBDP 1 po q6hr PRN Nausea ONDAN SETRON 09139603847 No Longer Active Rich Rosales MD Active ZOFRAN 4 MG TABS 1 tablet every 4 hours ONDAWANDY ALLAN HCL 53416973567 No Longer Active Rich Rosales MD Active MUCINEX 600 MG [id number] Take 1-2 tablets every 12 hours GUAIFENESIN 93984058209 No Longer Active Rich Rosales MD Activ e BACTRIM 400-80 MG TABS take one po BID SULFAMETHOXAZOLE-TRIMETHOPRIM 69813771880 No Longer Active Abelardo HERNANDEZ Active AZITHROMYCIN 500 MG TABS 1 PO q day x 6 days AZ ITHROMYCIN 20126958607 No Longer Active Tin HERNANDEZ Active ZITHROMAX 250 MG TAB 2 po today, then 1 po q days 2-5 AZITHROMYCIN 13197953919 No Longer Active Arie Casper MD Acti ve ZITHROMAX 250 MG TAB 2 po today, then 1 po q days 2-5 AZITHROMYCIN 00600866752 No Longer Active Arie Casper MD Acti ve AMOXICILLIN 500 MG CAP 1 tab by mouth 3 times daily 09/23/20 AMOXICILLIN 58456408018 No Longer Active Arie Casper MD Acti ve BACTRIM DS 800-160 MG TAB 1 tab by mouth twice daily 2 TRIMETHOPRIM-SULFAMETHOXAZOLE 95006691456 No Longer Active Arie Casper MD Active AMOXICILLIN 500 MG TABS take 1 tab po TID AMOXI CILLIN 06633053937 No Longer Active Arie Casper MD Active BACTRIM DS 800-160 MG TAB 1 tab by mouth twice daily 2 BACTRIM DS 800-160 MG TAB 852711 TRIMETHOPRIM-SULFAMETHOXAZOLE Inac tive MUCINEX 600 MG [id number] Take 1-2 tablets every 12 hours MUCINEX 600 MG [id number] GUAIFENESIN Inactive ZOFRAN 4 MG TABS 1 tablet every 4 hours ZOFRAN 4 MG TABS 179213 ONDANSETRON HCL Inactive ZOFRAN ODT 4 MG TBDP 1 po q6hr PRN Nausea ZOFRAN ODT 4 MG TBDP 925617 ONDANSETRON Inactive CHLORASEPTIC MAX SORE THROAT 15-10 MG LOZG 1 every 2 hours prn 2 /04/30 CHLORASEPTIC MAX SORE THROAT 15-10 MG LOZG BENZO ARINA-MENTHOL Inactive COMTREX COLD/COUGH DAY/NITE MS 5-2-10-325 MG MISC 2 caps deja ry 4 hours COMTREX COLD/COUGH DAY/NITE MS 5-2-10-325 MG MIS C [id number] Inactive [facility] TUSSIN COUGH/COLD CF 5-10-100 MG/5ML LIQD 2 teaspoons ev eliud 4 hours [facility] TUSSIN COUGH/COLD CF 5-10-100 MG/5ML LIQD [id number] Inactive IBUPROFEN 800 MG TABS take one po Q 8 hours IBUPROFEN 800 MG TABS IBUPROFEN Inactive VITAMINS 0.8 MG TABS take 1 tab po qday 08/08 VITAMINS 0.8 MG TABS [id number] Inactive TESSALON PERLES 100 MG CAP 1 tablet by mouth 3 times daily 11/01 TESSALON PERLES 100 MG CAP 156915 BENZONATATE Inact zaid AMOXICILLIN 500 MG CAP 1 tab by mouth 3 times daily 08/12/16 AMOXICILLIN 500 MG CAP 699721 AMOXICILLIN Inactive GUAIFENESIN-CODEINE 100-10 MG/5ML ORAL SYRP 2 tsp every 6 hours prn GUAIFENESIN-CODEINE 100-10 MG/5ML ORAL SYRP 523572 GUAIFENESIN-CODEINE Inactive VICKS DAYQUIL SEVERE COLD/FLU TABS 1 tab every 6 hours prn 12/10 VICKS DAYQUIL SEVERE COLD/FLU TABS PHENYLEPHRINE -DM-GG-APAP TABS Inactive BACTRIM DS 800-160 MG TABS 1 twice a day BACTRIM DS 800- 160 MG TABS 507075 SULFAMETHOXAZOLE-TRIMETHOPRIM Inactive PROMETHAZINE HCL 25 MG TABS 1 four times a day as needed for vomiting PROMETHAZINE HCL 25 MG TABS 400764 PROMETHAZINE HCL Inactive ZYRTEC ALLERGY 10 MG CAPS 1 po qd ZY RTEC ALLERGY 10 MG CAPS CETIRIZINE HCL Inactive MACROBID 100 MG CAP 1 cap by mouth twice daily MACROBID 100 MG CAP 9022920 NITROFURANTOIN MONOHYD MACRO Inactive LOMOTIL 2.5-0.025 MG TABS 1 to 2 four times a day as needed for diarrhea LOMOTIL 2.5-0.025 MG TABS 7919543 DIPHENOXYLATE-A TROPINE Inactive CYCLOBENZAPRINE HCL 10 MG TABS 1/2 - 1 tablet by mouth three times daily as needed for muscle spasm/pain CYCLOBENZAP RINE HCL 10 MG TABS 255418 CYCLOBENZAPRINE HCL Inactive AMOXICILLIN 500 MG TABS 2 tabs twice a day for 10 days AMOXICILLIN 500 MG TABS 732383 AMOXICILLIN Inactive LOMOTIL 2.5-0.025 MG TAB 1 to 2 four times a day as needed f or diarrhea LOMOTIL 2.5-0.025 MG TAB 4167217 DIPHENOXYLATE-AT ROPINE Inactive ZOFRAN 4 MG ORAL TABS 1 TAB PO Q 6 HRS PRN NAUSEA 2014 ZOFRAN 4 MG ORAL TABS 654117 ONDANSETRON HCL Inactive AMOXICILLIN 500 MG TABS take 1 tab po TID AMOXICILLIN 500 MG TABS 496540 AMOXICILLIN Inactive AMOXICILLIN 500 MG CAP 1 tab by mouth 3 times daily 09/23/20 AMOXICILLIN 500 MG CAP 053278 AMOXICILLIN Inactive ZITHROMAX 250 MG TAB 2 po today, then 1 po q days 2-5 ZITHROMAX 250 MG TAB 9092280 AZITHROMYCIN Inactive ZITHROMAX 250 MG TAB 2 po today, then 1 po q days 2-5 ZITHROMAX 250 MG TAB 7242543 AZITHROMYCIN Inactive AZITHROMYCIN 500 MG TABS 1 PO q day x 6 days 3 AZITHROMYCIN 500 MG TABS 6509353 AZITHROMYCIN Inactive BACTRIM 400-80 MG TABS take one po BID BA CTRIM 400-80 MG TABS 210836 SULFAMETHOXAZOLE-TRIMETHOPRIM Inactive AZITHROMYCIN 250 MG TABS 2 po qd x 1 day, then 1 po qd x 4 days AZITHROMYCIN 250 MG TABS 3101285 AZITHROMYCIN Inactiv e PREDNISONE 20 MG TAB 2 tabs daily for 3 days, 1 t ab daily for 3 days, 1/2 tab daily for 2 days PREDNISONE 20 MG TAB 309355 PREDNISON E Inactive ZITHROMAX 250 MG TAB 2 po today, then 1 po q days 2-5 ZITHROMAX 250 MG TAB 3257080 AZITHROMYCIN Inactive FLAGYL 500 MG TAB 1 tablet by mouth two times daily 07/11/29 FLAGYL 500 MG TAB 789874 METRONIDAZOLE Inactive AUGMENTIN 875-125 MG TAB 1 tab by mouth twice daily with food 20 08/12/16 AUGMENTIN 875-125 MG TAB 858959 AMOXICILLIN-POT CLAVULA ANGELO Inactive NAPROXEN 500 MG TAB one tab PO BID NAPROXEN 500 MG TAB 107312 NAPROXEN Inactive PREDNISONE 20 MG TAB 2 tabs daily for 3 days, 1 t ab daily for 3 days, 1/2 tab daily for 2 days PREDNISONE 20 MG TAB 988401 PREDNISON E Inactive AZITHROMYCIN 250 MG TABS 2 po qd x 1 day, then 1 po qd x 4 days AZITHROMYCIN 250 MG TABS 7777750 AZITHROMYCIN Inactiv e Advance Directives Directive Description Start Date PERMISSION [...] Range Description blood pressure, diastolic - 8462-4 69 mm[Hg] [...] - 3141-9 161 [lb_av] Weigh t Measured blood pressure, diastolic [...] - 3141-9 164 [lb_av] Weigh t Measured Diagnostic Results Date [...] 11 .6-14.8 platelet count 214 10^3/MM^3 10*3/mm3 181-622 9423/12/15 leukocyte count, blood 8.4 10^3/MM^3 10*3/mm3 4.6-10.2 [...] count 276 10^3/MM^3 10*3/mm3 142-424 Lab Report: Chlamydia/GC APTIMA/94573 - Lab chlamydia DNA probe NOT DETECTED NOT DETECTED Lab Report: Chlamydia/GC APTIMA/93217 - Microbiology Neisseria gonorrhoeae DNA probe NOT DETECTED NO T DETECTED Lab Report: Comp. Metabolic Panel - Chem istry sodium, serum 139 mmol/L 298-097 8913/12/15 carbon dioxide, venous blood 30.2 mmol/L 21.0-32 .0 potassium, serum 3.4 mmol/L 3.5-5.2 chloride, serum 101 mmol/L 98-107 blood glucose 92 mg/dL 65-110 urea nitrogen, blood 5 mg/dL 7-18 creatinine, serum 0.81 mg/dL 0.55-1.30 alanine aminotransferase (SGPT), serum 20 U/L 12-78 aspartate aminotransferase (SGOT), serum 10 U/L 15-37 calcium, serum 8.4 mg/dL 8.5-10.1 bilirubin, serum, total 0.60 mg/dL 0.00-1.00 Lab Report: HIV-1/2 Agn/Darcy/95444, HEPAT ITIS PANEL, ACUTE W/REFLE - Chemistry hepatitis B surface antigen NON-REACTIVE NON-RE ACTIVE Lab Report: RapidStrep Rflx/Cx - Lab Microbial identification kit, rapid strep method Negative Negative Lab Report: LILIA INFLUENZA A/B - [place] rapid flu test Negative Negative;Positive Lab Report: UADIP W/MICRO, AUTO - Chemis try RBC, urine, dipstick Negative Negative protein, total urine random Negative mg/dL Negative RBC, urine, dipstick Negative Negative protein, total urine random Negative mg/dL Negative protein, total urine random Negative mg/dL Negative RBC, urine, dipstick 2+ Negative Lab Report: UADIP W/MICRO, AUTO - [...] 1.025 1.000-1.030 pH, urine, semiquantitative 5.5 5.0-8.5 urine color Yellow Colorless;Lightyellow;St raw;Yellow appearance, urine Clear Clear specific gravity, urine >=1.030 1.000-1.030 pH, urine, semiquantitative 5.5 5.0-8.5 urobilinogen, urine, semiquantitative (dipstick) 0.2 Normal leukocyte esterase, urine, by dipstick Negative Negative nitrite, urine, semiquantitative Negative Neg ative glucose, urine, semiquantitative Negative Neg ative ketones, urine, by test strip Trace Negati ve bilirubin, urine Negative Negative urobilinogen, urine, semiquantitative (dipstick) 0.2 Normal leukocyte esterase, urine, by dipstick Negative Negative nitrite, urine, semiquantitative Negative Neg ative urine color Yellow Colorless;Lightyellow;St raw;Yellow appearance, urine Clear Clear specific gravity, urine 1.020 1.000-1.030 pH, urine, semiquantitative 6.5 5.0-8.5 Encounters Code Encounter Date Provider Facility CPT-62035 Level 3 Est. 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 Patient 16:25:33 GEOTHERMAL PLANT MANAGER Rich Rosales MD [facility] CPT-04836 Level 3 Est. Patient 20:33:55 CDT Arie mcqueen MD [facility] CPT-90401 Level 3 Est. Patient 14:18:20 CDT Rich Rosales MD [facility] CPT-63897 Level 4 Est. Patient 09:34:31 CDT Arie mcqueen MD [facility] CPT-16255 Level 3 Est. Patient 09:08:55 GEOTHERMAL PLANT MANAGER Liliana vincent MD PhD [facility] CPT-26029 Level 3 Est. Patient 16:44:07 GEOTHERMAL PLANT MANAGER Arie mcqueen MD [facility] CPT-32552 Level 3 Est. Patient 10:44:27 CDT Arie mcqueen MD [facility] CPT-75809 Level 3 Est. Patient 08:55:41 CDT Jose Zhong MD [facility] CPT-14430 Level 3 Est. Patient 18:37:31 CDT Liliana vincent MD PhD [facility] CPT-63792 Level 3 Est. Patient 14:28:23 CDT Abelardo HERNANDEZ [facility] CPT-04328 Level 3 Est. Patient 15:18:13 GEOTHERMAL PLANT MANAGER Arie mcqueen MD [facility] CPT-12717 Level 3 Est. Patient 10:11:29 GEOTHERMAL PLANT MANAGER Arie mcqueen MD [facility] CPT-18718 Level 3 Est. Patient 10:55:57 GEOTHERMAL PLANT MANAGER Jono black DO [facility] CPT-71133 Level 3 Est. Patient 17:29:05 CDT Arie mcqueen MD [facility] Procedures Code Procedure Name Date Entry Date Standard Desc ription CPT-23776 Abd compl w upright 09:07:26 [employer]OTHERMAL PLANT MANAGER CPT-63700 Ear Wash 16:12:47 [employer]OTHERMAL PLANT MANAGER CPT-OV Office Visit 11:12:01 CDT CPT-OV Office Visit 15:30:23 CDT CPT-72284 Sono pelvis non OB uterus ovaries cervix 15:50:44 CDT CPT-08164 Hand comp min 3V 16:42:32 CDT CPT-92879 Abd compl w upright 12:17:01 CDT CPT-57634 Nexplanon Placement 15:07:39 [employer]OTHERMAL PLANT MANAGER CPT-29602 Removal of IUD 15:07:39 GEOTHERMAL PLANT MANAGER CPT-36303 TB Tubersol 12:09:32 CDT CPT-46647 TB Tubersol 13:55:43 CDT
--- OUTSIDE RECORDS SUMMARY | 2020-03-03 07:25 | XMS REPORT | Clinical Summary ---
Author Author Admin, Diamante Marcelo Organization [facility] Address Unknown Phone Unavailable Allergies, Adverse Reactions, [...] site Abdominal pain 789.00 Active Brii Larson RADIOISOTOPE TECHNOLOGIST Abdominal pain, unspecified site Diarrhea 787.91 Resolved [...] cute pharyngitis Nausea 787.02 Active Brii Larson RADIOISOTOPE TECHNOLOGIST Nausea alone URI 465.9 Active Jono Gagnon DO Acu te upper respiratory infections of unspecified site Allergic rhinitis 477.9 Active Brii Christianson PRN Allergic rhinitis, cause unspecified Abdominal pain, right lower quadrant 789.03 Active Jose Zhong MD Abdominal pain, right lower quadrant Urinary frequency 788.41 Inactive Roseann Crawford Urinary frequency Urinary frequency 788.41 Active 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, [employer] Urinary frequency Sinusitis - acute 461.9 Active Brii Christianson PRN Acute sinusitis, unspecified Anxiety with depression 300.4 Active Glenn Larson RADIOISOTOPE TECHNOLOGIST Dysthymic disorder URI 465.9 Active Jono Gagnon [...] 1/2 tab daily for 2 days PREDNISONE 57239800155 Active Arie Casper MD Active TUSSIONEX PENNKINETIC ER 10-8 MG/5ML LQCR 5ml po q12hr PRN Cough 20 07/02/19 HYDROCOD POLST-CHLORPHEN POLST 18762056614 Active Arie Casper MD Active CETIRIZINE HCL 10 MG ORAL TABS 1 po qd PRN Allergies CETIRIZINE HCL 69112796662 Active Arie Casper MD Active NEXPLANON IMPL right arm subcutaneously ETONOGE STREL IMPL 27433229943 Active Arie Casper MD Active LOMOTIL 2.5-0.025 MG TAB 1 tab po four times a day as needed for diarrhea DIPHENOXYLATE-ATROPINE 83286758587 No Longer Active Fozia Casper MD Active ZOLOFT 50 MG TAB 1 tablet by mouth daily SERTRA LINE HCL 47055043490 No Longer Active Arie Casper MD Active NAPROXEN 500 MG TAB Take 1 tab BID NAPROXEN 332 46224011 No Longer Active Arie Casper MD Active CEFDINIR 300 MG CAPS 1 po BID x 10 days CEFDINI R 51350393137 No Longer Active Brii Larson APRN Active PREDNISONE 20 MG TAB 1 tablet daily for airway inflammation 2015 PREDNISONE 63698763535 No Longer Active Brii Larson APRN Active CEFDINIR 300 MG CAPS 1 po BID x 10 days CEFDINI R 23404158644 No Longer Active Jono Gagnon DO Active FLONASE 50 MCG/ACT SUSP 1 spray each nostril twice d aily for allergies and runny nose until gone FLUTICASONE PROPIONATE No Longe r Active Jono Gagnon DO Active ALPRAZOLAM 0.25 MG TAB 1 tablet by mouth every 8 hours as ne eded for stress ALPRAZOLAM 28986308662 No Longer Active Jono Gagnon DO Active ZITHROMAX Z-EMIL 250 MG TABS 2 today, then 1 daily for 4 days 201 03/31/18 AZITHROMYCIN 76531817345 No Longer Active Arie Casper MD Active PROTONIX 40 MG ORAL TBEC 1 po q a.m. PANTOPRAZO LE SODIUM 64688943368 Active Arie Casper MD Active PREDNISONE 20 MG TAB 2 tabs daily for 3 days, 1 t ab daily for 3 days, 1/2 tab daily for 2 days PREDNISONE 32602860072 No Longer Active Brii Larson APRN Active PREDNISONE 20 MG TAB 1 tablet twice daily for 2 d ays, then 1 tablet once daily for 2 days PREDNISONE 99579479440 No Longer Active Brii Larson APRN Active PROMETHAZINE HCL 12.5 MG TABS 1 tablet by mouth every 6 hours as needed for nausea/vomiting PROMETHAZINE HCL 23063193570 No Longe r Active Jono Gagnon DO Active CITRATE OF MAGNESIA ORAL SOLN 1 bottle today for constipation 20 07/10/15 MAGNESIUM CITRATE 66964859930 No Longer Active Jono Gagnon DO Active ZOFRAN 4 MG ORAL TABS 1 TAB PO Q 6 HRS PRN NAUSEA 2014 ONDANSETRON HCL 75055209515 No Longer Active Brii Larson APRN A ctive LOMOTIL 2.5-0.025 MG TAB 1 to 2 four times a day as needed f or diarrhea DIPHENOXYLATE-ATROPINE 18588367546 No Longer Active January Larson APRN Active AMOXICILLIN 500 MG TABS 2 tabs twice a day for 10 days AMOXICILLIN 04082005280 No Longer Active Brii Larson APRN Acti ve CYCLOBENZAPRINE HCL 10 MG TABS 1/2 - 1 tablet by mouth three times daily as needed for muscle spasm/pain CYCLOBENZAPRINE HCL 74109553747 No Longer Active Arie Casper MD Active LOMOTIL 2.5-0.025 MG TABS 1 to 2 four times a day as needed for diarrhea DIPHENOXYLATE-ATROPINE 03107025483 No Longer Active Fozia Casper MD Active MACROBID 100 MG CAP 1 cap by mouth twice daily NITROFURANTOIN MONOHYD MACRO 38378657981 No Longer Active Arie Casper MD Active ZYRTEC ALLERGY 10 MG CAPS 1 po qd CETIRIZINE HCL 05139675195 No Longer Active Arie Casper MD Active AZITHROMYCIN 250 MG TABS 2 po qd x 1 day, then 1 po qd x 4 days AZITHROMYCIN 54851416234 No Longer Active Jillina Frazell RADIOISOTOPE TECHNOLOGIST Active PREDNISONE 20 MG TAB 2 tabs daily for 3 days, 1 t ab daily for 3 days, 1/2 tab daily for 2 days PREDNISONE 69882057755 No Longer Active Jillina Frazell RADIOISOTOPE TECHNOLOGIST Active PROMETHAZINE HCL 25 MG TABS 1 four times a day as needed for vomiting PROMETHAZINE HCL 75466536008 No Longer Active Myrna Roberto MD Active BACTRIM DS 800-160 MG TABS 1 twice a day SULFAMETHOXAZOLE-TRIMETHOPRIM 95765752220 No Longer Active Myrna Roberto MD Active VICKS DAYQUIL SEVERE COLD/FLU TABS 1 tab every 6 hours prn 12/10 [id number] TABS 14745176316 No Longer Active Myrna leigh MD Active GUAIFENESIN-CODEINE 100-10 MG/5ML ORAL SYRP 2 tsp every 6 hours prn GUAIFENESIN-CODEINE 61346600897 No Longer Active Myrna Roberto MD Active NAPROXEN 500 MG TAB one tab PO BID NAPROXEN 332 44223400 No Longer Active Myrna Roberto MD Active AUGMENTIN 875-125 MG TAB 1 tab by mouth twice daily with food 08/12/16 AMOXICILLIN-POT CLAVULANATE 30091604740 No Longer Active Liliana Estrada MD PhD Active AMOXICILLIN 500 MG CAP 1 tab by mouth 3 times daily 08/12/16 AMOXICILLIN 48563641731 No Longer Active Liliana Estrada MD PhD Acti ve TESSALON PERLES 100 MG CAP 1 tablet by mouth 3 times daily 11/01 BENZONATATE 27858754463 No Longer Active Liliana Estrada MD PhD Active FLAGYL 500 MG TAB 1 tablet by mouth two times daily 07/11/29 METRONIDAZOLE 15112111547 No Longer Active Nilam Weber Active ZITHROMAX 250 MG TAB 2 po today, then 1 po q days 2-5 AZITHROMYCIN 47659092038 No Longer Active Arie Casper MD Acti ve VITAMINS 0.8 MG TABS take 1 tab po qday 08/08 [id number]-FA 22656453022 No Longer Active Arie Casper MD Active IBUPROFEN 800 MG TABS take one po Q 8 hours IBU PROFEN 36828621160 No Longer Active Arie Casper MD Active [facility] TUSSIN COUGH/COLD CF 5-10-100 MG/5ML LIQD 2 teaspoons ev eliud 4 hours [id number] 13035103595 No Longer Active Blaine Casper MD Active COMTREX COLD/COUGH DAY/NITE MS 5-2-10-325 MG MISC 2 caps deja ry 4 hours [id number]-APAP 02801274555 No Longer Active Landon Casper MD Active CHLORASEPTIC MAX SORE THROAT 15-10 MG LOZG 1 every 2 hours prn 2 BENZOCAINE-MENTHOL 82222417007 No Longer Active Arie Marcelo Active PREDNISONE 20 MG TAB 2 tabs daily for 3 days, 1 t ab daily for 3 days, 1/2 tab daily for 2 days PREDNISONE 27409394254 No Longer Active Jose Zhong MD Active AZITHROMYCIN 250 MG TABS 2 po qd x 1 day, then 1 po qd x 4 days AZITHROMYCIN 71851839484 No Longer Active Jose Zhong MD Active ZOFRAN ODT 4 MG TBDP 1 po q6hr PRN Nausea ONDAN SETRON 40093767327 No Longer Active Rich Rosales MD Active ZOFRAN 4 MG TABS 1 tablet every 4 hours ONDAWANDY ALLAN HCL 95031322514 No Longer Active Rich Rosales MD Active MUCINEX 600 MG [id number] Take 1-2 tablets every 12 hours GUAIFENESIN 74343317013 No Longer Active Rich Rosales MD Activ e BACTRIM 400-80 MG TABS take one po BID SULFAMETHOXAZOLE-TRIMETHOPRIM 04231258258 No Longer Active Abelardo HERNANDEZ Active AZITHROMYCIN 500 MG TABS 1 PO q day x 6 days AZ ITHROMYCIN 71771558734 No Longer Active Tin HERNANDEZ Active ZITHROMAX 250 MG TAB 2 po today, then 1 po q days 2-5 AZITHROMYCIN 91122350420 No Longer Active Arie Casper MD Acti ve ZITHROMAX 250 MG TAB 2 po today, then 1 po q days 2-5 AZITHROMYCIN 14661672311 No Longer Active Arie Casper MD Acti ve AMOXICILLIN 500 MG CAP 1 tab by mouth 3 times daily 09/23/20 AMOXICILLIN 70743314666 No Longer Active Arie Casper MD Acti ve BACTRIM DS 800-160 MG TAB 1 tab by mouth twice daily 2 TRIMETHOPRIM-SULFAMETHOXAZOLE 22542706905 No Longer Active Arie Casper MD Active AMOXICILLIN 500 MG TABS take 1 tab po TID AMOXI CILLIN 74520190106 No Longer Active Arie Casper MD Active BACTRIM DS 800-160 MG TAB 1 tab by mouth twice daily 2 BACTRIM DS 800-160 MG TAB 291236 TRIMETHOPRIM-SULFAMETHOXAZOLE Inac tive MUCINEX 600 MG [id number] Take 1-2 tablets every 12 hours MUCINEX 600 MG [id number] GUAIFENESIN Inactive ZOFRAN 4 MG TABS 1 tablet every 4 hours ZOFRAN 4 MG TABS 330089 ONDANSETRON HCL Inactive ZOFRAN ODT 4 MG TBDP 1 po q6hr PRN Nausea ZOFRAN ODT 4 MG TBDP 405008 ONDANSETRON Inactive CHLORASEPTIC MAX SORE THROAT 15-10 MG LOZG 1 every 2 hours prn 2 CHLORASEPTIC MAX SORE THROAT 15-10 MG LOZG BENZO ARINA-MENTHOL Inactive COMTREX COLD/COUGH DAY/NITE MS 5-2-10-325 MG MISC 2 caps deja ry 4 hours COMTREX COLD/COUGH DAY/NITE MS 5-2-10-325 MG MIS C [id number]-APAP Inactive [facility] TUSSIN COUGH/COLD CF 5-10-100 MG/5ML LIQD 2 teaspoons ev eliud 4 hours [facility] TUSSIN COUGH/COLD CF 5-10-100 MG/5ML LIQD [id number] Inactive IBUPROFEN 800 MG TABS take one po Q 8 hours IBUPROFEN 800 MG TABS IBUPROFEN Inactive VITAMINS 0.8 MG TABS take 1 tab po qday 08/08 VITAMINS 0.8 MG TABS [id number]-[id number]-FA Inactive TESSALON PERLES 100 MG CAP 1 tablet by mouth 3 times daily 11/01 TESSALON PERLES 100 MG CAP 494059 BENZONATATE Inact zaid AMOXICILLIN 500 MG CAP 1 tab by mouth 3 times daily 08/12/16 AMOXICILLIN 500 MG CAP 535338 AMOXICILLIN Inactive GUAIFENESIN-CODEINE 100-10 MG/5ML ORAL SYRP 2 tsp every 6 hours prn GUAIFENESIN-CODEINE 100-10 MG/5ML ORAL SYRP 113082 GUAIFENESIN-CODEINE Inactive VICKS DAYQUIL SEVERE COLD/FLU TABS 1 tab every 6 hours prn 12/10 VICKS DAYQUIL SEVERE COLD/FLU TABS PHENYLEPHRINE -DM-GG-APAP TABS Inactive BACTRIM DS 800-160 MG TABS 1 twice a day BACTRIM DS 800- 160 MG TABS 906802 SULFAMETHOXAZOLE-TRIMETHOPRIM Inactive PROMETHAZINE HCL 25 MG TABS 1 four times a day as needed for vomiting PROMETHAZINE HCL 25 MG TABS 876829 PROMETHAZINE HCL Inactive ZYRTEC ALLERGY 10 MG CAPS 1 po qd ZY RTEC ALLERGY 10 MG CAPS CETIRIZINE HCL Inactive MACROBID 100 MG CAP 1 cap by mouth twice daily MACROBID 100 MG CAP 8756287 NITROFURANTOIN MONOHYD MACRO Inactive LOMOTIL 2.5-0.025 MG TABS 1 to 2 four times a day as needed for diarrhea LOMOTIL 2.5-0.025 MG TABS 4011495 DIPHENOXYLATE-A TROPINE Inactive CYCLOBENZAPRINE HCL 10 MG TABS 1/2 - 1 tablet by mouth three times daily as needed for muscle spasm/pain CYCLOBENZAP RINE HCL 10 MG TABS 254716 CYCLOBENZAPRINE HCL Inactive AMOXICILLIN 500 MG TABS 2 tabs twice a day for 10 days AMOXICILLIN 500 MG TABS 019058 AMOXICILLIN Inactive LOMOTIL 2.5-0.025 MG TAB 1 to 2 four times a day as needed f or diarrhea LOMOTIL 2.5-0.025 MG TAB 4542751 DIPHENOXYLATE-AT ROPINE Inactive ZOFRAN 4 MG ORAL TABS 1 TAB PO Q 6 HRS PRN NAUSEA 2014 ZOFRAN 4 MG ORAL TABS 964714 ONDANSETRON HCL Inactive CITRATE OF MAGNESIA ORAL SOLN 1 bottle today for constipation 20 07/10/15 CITRATE OF MAGNESIA ORAL SOLN 4312657 MAGNESIUM CITRATE Inactive PROMETHAZINE HCL 12.5 MG TABS 1 tablet by mouth every 6 hours as needed for nausea/vomiting PROMETHAZINE HCL 12.5 MG TABS 015787 PROMETHAZINE HCL Inactive PREDNISONE 20 MG TAB 1 tablet twice daily for 2 d ays, then 1 tablet once daily for 2 days PREDNISONE 20 MG TAB 262116 PREDNISONE Inac tive ALPRAZOLAM 0.25 MG TAB 1 tablet by mouth every 8 hours as ne eded for stress ALPRAZOLAM 0.25 MG TAB 617585 ALPRAZOLAM Inact zaid FLONASE 50 MCG/ACT SUSP 1 spray each nostril twice d aily for allergies and runny nose until gone FLONASE 50 MCG/ACT SUSP F LUTICASONE PROPIONATE Inactive PREDNISONE 20 MG TAB 1 tablet daily for airway inflammation 2015 PREDNISONE 20 MG TAB 084076 PREDNISONE Inactive NAPROXEN 500 MG TAB Take 1 tab BID NAPROXEN 500 MG TAB 774511 NAPROXEN Inactive ZOLOFT 50 MG TAB 1 tablet by mouth daily ZOLOFT 50 MG TAB 111154 SERTRALINE HCL Inactive LOMOTIL 2.5-0.025 MG TAB 1 tab po four times a day as needed for diarrhea LOMOTIL 2.5-0.025 MG TAB 5737719 DIPHENOXYLATE-AT ROPINE Inactive AMOXICILLIN 500 MG TABS take 1 tab po TID AMOXICILLIN 500 MG TABS 536870 AMOXICILLIN Inactive AMOXICILLIN 500 MG CAP 1 tab by mouth 3 times daily 09/23/20 AMOXICILLIN 500 MG CAP 379330 AMOXICILLIN Inactive ZITHROMAX 250 MG TAB 2 po today, then 1 po q days 2-5 ZITHROMAX 250 MG TAB 5173982 AZITHROMYCIN Inactive ZITHROMAX 250 MG TAB 2 po today, then 1 po q days 2-5 ZITHROMAX 250 MG TAB 6094300 AZITHROMYCIN Inactive AZITHROMYCIN 500 MG TABS 1 PO q day x 6 days 3 AZITHROMYCIN 500 MG TABS 7705487 AZITHROMYCIN Inactive BACTRIM 400-80 MG TABS take one po BID BA CTRIM 400-80 MG TABS 822884 SULFAMETHOXAZOLE-TRIMETHOPRIM Inactive AZITHROMYCIN 250 MG TABS 2 po qd x 1 day, then 1 po qd x 4 days AZITHROMYCIN 250 MG TABS 2336704 AZITHROMYCIN Inactiv e PREDNISONE 20 MG TAB 2 tabs daily for 3 days, 1 t ab daily for 3 days, 1/2 tab daily for 2 days PREDNISONE 20 MG TAB 692886 PREDNISON E Inactive ZITHROMAX 250 MG TAB 2 po today, then 1 po q days 2-5 ZITHROMAX 250 MG TAB 1707350 AZITHROMYCIN Inactive FLAGYL 500 MG TAB 1 tablet by mouth two times daily 07/11/29 FLAGYL 500 MG TAB 916128 METRONIDAZOLE Inactive AUGMENTIN 875-125 MG TAB 1 tab by mouth twice daily with food 08/12/16 AUGMENTIN 875-125 MG TAB 884123 AMOXICILLIN-POT CLAVULA ANGELO Inactive NAPROXEN 500 MG TAB one tab PO BID NAPROXEN 500 MG TAB 201595 NAPROXEN Inactive PREDNISONE 20 MG TAB 2 tabs daily for 3 days, 1 t ab daily for 3 days, 1/2 tab daily for 2 days PREDNISONE 20 MG TAB 034445 PREDNISON E Inactive AZITHROMYCIN 250 MG TABS 2 po qd x 1 day, then 1 po qd x 4 days AZITHROMYCIN 250 MG TABS 6721046 AZITHROMYCIN Inactiv e PREDNISONE 20 MG TAB 2 tabs daily for 3 days, 1 t ab daily for 3 days, 1/2 tab daily for 2 days PREDNISONE 20 MG TAB 665869 PREDNISON E Inactive ZITHROMAX Z-EMIL 250 MG TABS 2 today, then 1 daily for 4 days 201 03/31/18 ZITHROMAX Z-EMIL 250 MG TABS 5191279 AZITHROMYCIN Inac tive CEFDINIR 300 MG CAPS 1 po BID x 10 days C EFDINIR 300 MG CAPS 687478 CEFDINIR Inactive CEFDINIR 300 MG CAPS 1 po BID x 10 days C EFDINIR 300 MG CAPS 718974 CEFDINIR Inactive Advance Directives Directive Description Start [...] - 3141-9 183 [lb_av] Weigh t Measured Diagnostic Results Date Name Value Unit Range Description Immunizations: TB Skin Test - Challenge tests PPD results in mm 0 mm Lab Report: CBC W/DIFF, Comp. Metabolic Panel - Chemistry sodium, serum 136 mmol/L 747-958 6994/04/26 carbon dioxide, venous blood 29.9 mmol/L 21.0-32 [...] 284 10^3/MM^3 10*3/mm3 142-424 Lab Report: Chlamydia/GC APTIMA/99554 - Lab chlamydia DNA probe NOT DETECTED NOT DETECTED Lab Report: Chlamydia/GC APTIMA/59950 - Microbiology Neisseria gonorrhoeae DNA probe NOT [...] urine, semiquantitative Negative Neg ative Lab Report: [facility] [place], UADIP W/MICRO, AUTO - Chemistry protein, total [...] Negative Encounters Code Encounter Date Provider Facility CPT-86764 Level 3 Est. Patient 16:40:36 CDT Arie mcqueen MD [facility] CPT-69099 Level 4 Est. Patient 15:29:22 ENAMEL SPRAYER Arie mcqueen MD [facility] CPT-65321 Level 3 Est. Patient 15:18:16 ENAMEL SPRAYER Jono black [facility] CPT-74602 Level 4 Est. Patient 12:08:40 ENAMEL SPRAYER [facility] [place] CPT-53694 Level 3 Est. Patient 09:24:42 CDT [facility] [place] CPT-84690 Level 3 Est. Patient 09:12:56 CDT Arie mcqueen MD [facility] CPT-32917 Level 3 Est. Patient 16:40:54 CDT Jose Zhong MD [facility] CPT-42302 Level 2 Est. Patient 13:01:13 CDT [facility] [place] CPT-77642 Level 3 Est. Patient 11:55:30 ENAMEL SPRAYER Jono black [facility] CPT-97198 Level 3 Est. Patient 09:52:36 ENAMEL SPRAYER Steve [facility] CPT-04281 Level 3 Est. Patient 16:25:33 ENAMEL SPRAYER Rich Rosales MD [facility]-43145 Level 3 Est. Patient 20:33:55 CDT Arie mcqueen MD [facility]-10021 Level 3 Est. Patient 14:18:20 CDT Rich Rosales MD [facility]-94294 Level 4 Est. Patient 09:34:31 CDT Arie mcqueen MD [facility]-12658 Level 3 Est. Patient 09:08:55 ENAMEL SPRAYER Liliana vincent MD [facility]-40919 Level 3 Est. Patient 16:44:07 ENAMEL SPRAYER Arie mcqueen MD [facility]-01042 Level 3 Est. Patient 10:44:27 CDT Arie mcqueen MD [facility] CPT-61906 Level 3 Est. Patient 08:55:41 CDT Jose Zhong MD [facility]-75042 Level 3 Est. Patient 18:37:31 CDT Liliana vincent MD PhD [facility]-73088 Level 3 Est. Patient 14:28:23 CDT Abelardo HERNANDEZ [facility]-10921 Level 3 Est. Patient 15:18:13 ENAMEL SPRAYER Arie mcqueen MD [facility]-84978 Level 3 Est. Patient 10:11:29 ENAMEL SPRAYER Arie mcqueen MD [facility]-72217 Level 3 Est. Patient 10:55:57 ENAMEL SPRAYER Jono black DO [facility] CPT-96420 Level 3 Est. Patient 17:29:05 CDT Arie mcqueen MD [facility] Procedures Code Procedure Name Date Entry Date Standard Desc ription CPT-65763 Sono transvag pelvis non OB uterus ovari es cervix - XRAY USE ONLY 08:58:14 ENAMEL SPRAYER CPT-58795 UA w micro - LAB USE ONLY 16:04:56 ENAMEL SPRAYER 2015 CPT-89112 Wet Prep/GEN - LAB USE ONLY 16:04:56 ENAMEL SPRAYER 20 08/10/29 CPT-12801 First Vx - Ix admin via ID I M or jet injects without counseling by physician 16:57:10 CDT CPT-34689 Fluzone Preservative Free Intramuscular Suspension 16:57:10 CDT CPT-J0696 Rocephin 1000 mg (Ceftriaxone) 11:49:23 CDT CPT-J1040 Depo Medrol 80 mg (Methyl Prednisolone A cetate) 11:49:23 CDT CPT-J1100 Decadron 8mg (Dexamethasone) 11:49:23 CDT 2 CPT-79494 Abx/Therapy Injection 11:49:23 CDT CPT-89172 Abx/Therapy Injection 11:49:23 CDT CPT-37502 Abd compl w upright 09:07:26 ENAMEL SPRAYER CPT-39107 Ear Wash 16:12:47 ENAMEL SPRAYER CPT-OV Office Visit 11:12:01 CDT CPT-OV Office Visit 15:30:23 CDT CPT-82156 Sono pelvis non OB uterus ovaries cervix 15:50:44 CDT CPT-61713 Hand comp min 3V 16:42:32 CDT CPT-26408 Abd compl w upright 12:17:01 CDT CPT-15843 Nexplanon Placement 15:07:39 ENAMEL SPRAYER CPT-25824 Removal of IUD 15:07:39 ENAMEL SPRAYER CPT-39232 TB Tubersol 12:09:32 CDT CPT-25811 TB Tubersol 13:55:43 CDT
--- OUTSIDE RECORDS SUMMARY | 2020-03-03 07:25 | XMS REPORT | Clinical Summary ---
Author Author Admin, Diamante Marcelo Organization [facility] Address Unknown Phone Unavailable Allergies, Adverse Reactions, [...] cute pharyngitis Nausea 787.02 Active Brii Larson [employer] Nausea alone URI 465.9 Active Jono Gagnon DO Acu te upper respiratory infections of unspecified site Allergic rhinitis 477.9 Active Brii Christianson PRN Allergic rhinitis, cause unspecified Abdominal pain, right lower quadrant 789.03 Active Jose Zhong MD Abdominal pain, right lower quadrant Urinary frequency 788.41 Inactive Roseann Crawford Urinary frequency Sinusitis - acute 461.9 Active Brii Larson A PRN Acute sinusitis, unspecified Anxiety with depression 300.4 Active Glenn Larson [employer] Dysthymic disorder BREAST CANCER ICD-V16.3 Inactive Jose Marcelo COLON [...] tablet by mouth daily SERTRA LINE HCL 05957985960 Active Brii Larson APRN Active LOMOTIL 2.5-0.025 MG TAB 1 tab po four times a day as needed for diarrhea DIPHENOXYLATE-ATROPINE 71849426225 Active Brii Larson APRN Active ZITHROMAX Z-EMIL 250 MG TABS 2 today, then 1 daily for 4 days 201 03/31/18 AZITHROMYCIN 50198824120 No Longer Active Arie Casper MD Active ALPRAZOLAM 0.25 MG TAB 1 tablet by mouth every 8 hours as ne eded for stress ALPRAZOLAM 82130890559 Active Brii Larson APRN Active PROTONIX 40 MG ORAL TBEC 1 po q a.m. PANTOPRAZO LE SODIUM 98602279434 Active Carline Ochoa RPT,RMA Active PREDNISONE 20 MG TAB 2 tabs daily for 3 days, 1 t ab daily for 3 days, 1/2 tab daily for 2 days PREDNISONE 51599458332 No Longer Active Brii Larson APRN Active PREDNISONE 20 MG TAB 1 tablet twice daily for 2 d ays, then 1 tablet once daily for 2 days PREDNISONE 66899342237 No Longer Active Brii Larson APRN Active FLONASE 50 MCG/ACT SUSP 1 spray each nostril twice d aily for allergies and runny nose until gone FLUTICASONE PROPIONATE Active Jono Gagnon DO Active PROMETHAZINE HCL 12.5 MG TABS 1 tablet by mouth every 6 hours as needed for nausea/vomiting PROMETHAZINE HCL 54238001940 No Longe r Active Jono Gagnon DO Active CITRATE OF MAGNESIA ORAL SOLN 1 bottle today for constipation 20 07/10/15 MAGNESIUM CITRATE 58508738541 No Longer Active Jono Gagnon DO Active ZOFRAN 4 MG ORAL TABS 1 TAB PO Q 6 HRS PRN NAUSEA 2014 ONDANSETRON HCL 76600759039 No Longer Active Brii Larson APRN A ctive LOMOTIL 2.5-0.025 MG TAB 1 to 2 four times a day as needed f or diarrhea DIPHENOXYLATE-ATROPINE 55236743363 No Longer Active January Larson APRN Active AMOXICILLIN 500 MG TABS 2 tabs twice a day for 10 days AMOXICILLIN 38330968924 No Longer Active Brii Larson APRN Acti ve NEXPLANON IMPL ETONOGESTREL IMPL 17293344812 Active Rich Rosales MD Active CYCLOBENZAPRINE HCL 10 MG TABS 1/2 - 1 tablet by mouth three times daily as needed for muscle spasm/pain CYCLOBENZAPRINE HCL 10402709616 No Longer Active Arie Casper MD Active LOMOTIL 2.5-0.025 MG TABS 1 to 2 four times a day as needed for diarrhea DIPHENOXYLATE-ATROPINE 77150654813 No Longer Active Fozia Casper MD Active MACROBID 100 MG CAP 1 cap by mouth twice daily NITROFURANTOIN MONOHYD MACRO 97431418635 No Longer Active Arie Casper MD Active ZYRTEC ALLERGY 10 MG CAPS 1 po qd CETIRIZINE HCL 30635465456 No Longer Active Arie Casper MD Active AZITHROMYCIN 250 MG TABS 2 po qd x 1 day, then 1 po qd x 4 days AZITHROMYCIN 04103210964 No Longer Active Jillina Frazell [employer] Active PREDNISONE 20 MG TAB 2 tabs daily for 3 days, 1 t ab daily for 3 days, 1/2 tab daily for 2 days PREDNISONE 70709258094 No Longer Active Jillina Frazell [employer] Active PROMETHAZINE HCL 25 MG TABS 1 four times a day as needed for vomiting PROMETHAZINE HCL 20000272626 No Longer Active Myrna Roberto MD Active BACTRIM DS 800-160 MG TABS 1 twice a day SULFAMETHOXAZOLE-TRIMETHOPRIM 22554288982 No Longer Active Myrna Roberto MD Active VICKS DAYQUIL SEVERE COLD/FLU TABS 1 tab every 6 hours prn 12/10 [id number]-OK-CE-APAP TABS 95940072250 No Longer Active Myrna leigh MD Active GUAIFENESIN-CODEINE 100-10 MG/5ML ORAL SYRP 2 tsp every 6 hours prn GUAIFENESIN-CODEINE 80402823157 No Longer Active Myrna Roberto MD Active NAPROXEN 500 MG TAB one tab PO BID NAPROXEN 332 90690051 No Longer Active Myrna Roberto MD Active AUGMENTIN 875-125 MG TAB 1 tab by mouth twice daily with food 08/12/16 AMOXICILLIN-POT CLAVULANATE 80779249491 No Longer Active Liliana Estrada MD PhD Active AMOXICILLIN 500 MG CAP 1 tab by mouth 3 times daily 08/12/16 AMOXICILLIN 79165324106 No Longer Active Liliana Estrada MD PhD Acti ve TESSALON PERLES 100 MG CAP 1 tablet by mouth 3 times daily 11/01 BENZONATATE 04352677813 No Longer Active Liliana Estrada MD PhD Active FLAGYL 500 MG TAB 1 tablet by mouth two times daily 20 07/11/29 METRONIDAZOLE 92977069806 No Longer Active Nilam Weber Active ZITHROMAX 250 MG TAB 2 po today, then 1 po q days 2-5 AZITHROMYCIN 23663987966 No Longer Active Arie Casper MD Acti ve VITAMINS 0.8 MG TABS take 1 tab po qday 08/08 [id number] 66142469824 No Longer Active Arie Casper MD Active IBUPROFEN 800 MG TABS take one po Q 8 hours IBU PROFEN 19006633846 No Longer Active Arie Casper MD Active [facility] TUSSIN COUGH/COLD CF 5-10-100 MG/5ML LIQD 2 teaspoons ev eliud 4 hours [id number]-VA 14706006195 No Longer Active Blaine Casper MD Active COMTREX COLD/COUGH DAY/NITE MS 5-2-10-325 MG MISC 2 caps deja ry 4 hours [id number]-APAP 12728715538 No Longer Active Da aleksandra Casper MD Active CHLORASEPTIC MAX SORE THROAT 15-10 MG LOZG 1 every 2 hours prn 2 BENZOCAINE-MENTHOL 06572653874 No Longer Active Arie Marcelo Active PREDNISONE 20 MG TAB 2 tabs daily for 3 days, 1 t ab daily for 3 days, 1/2 tab daily for 2 days PREDNISONE 16782992514 No Longer Active Jose Zhong MD Active AZITHROMYCIN 250 MG TABS 2 po qd x 1 day, then 1 po qd x 4 days AZITHROMYCIN 00205091829 No Longer Active Jose Zhong MD Active ZOFRAN ODT 4 MG TBDP 1 po q6hr PRN Nausea ONDAN SETRON 13103627691 No Longer Active Rich Rosales MD Active ZOFRAN 4 MG TABS 1 tablet every 4 hours ONDANSE JERRELL HCL 81018305361 No Longer Active Rich Rosales MD Active MUCINEX 600 MG [id number]-NPF Take 1-2 tablets every 12 hours GUAIFENESIN 97761662130 No Longer Active Rich Rosales MD Activ e BACTRIM 400-80 MG TABS take one po BID SULFAMETHOXAZOLE-TRIMETHOPRIM 69869440143 No Longer Active Abelardo HERNANDEZ Active AZITHROMYCIN 500 MG TABS 1 PO q day x 6 days AZ ITHROMYCIN 22428827155 No Longer Active Tin HERNANDEZ Active ZITHROMAX 250 MG TAB 2 po today, then 1 po q days 2-5 AZITHROMYCIN 23506163213 No Longer Active Arie Casper MD Acti ve ZITHROMAX 250 MG TAB 2 po today, then 1 po q days 2-5 AZITHROMYCIN 34432655765 No Longer Active Arie Casper MD Acti ve AMOXICILLIN 500 MG CAP 1 tab by mouth 3 times daily 09/23/20 AMOXICILLIN 63996669913 No Longer Active Arie Casper MD Acti ve BACTRIM DS 800-160 MG TAB 1 tab by mouth twice daily 2 TRIMETHOPRIM-SULFAMETHOXAZOLE 96025002990 No Longer Active Arie Casper MD Active AMOXICILLIN 500 MG TABS take 1 tab po TID AMOXI CILLIN 06682237796 No Longer Active Arie Casper MD Active BACTRIM DS 800-160 MG TAB 1 tab by mouth twice daily 2 BACTRIM DS 800-160 MG TAB 986546 TRIMETHOPRIM-SULFAMETHOXAZOLE Inac tive MUCINEX 600 MG [id number] Take 1-2 tablets every 12 hours MUCINEX 600 MG [id number] GUAIFENESIN Inactive ZOFRAN 4 MG TABS 1 tablet every 4 hours ZOFRAN 4 MG TABS 911372 ONDANSETRON HCL Inactive ZOFRAN ODT 4 MG TBDP 1 po q6hr PRN Nausea ZOFRAN ODT 4 MG TBDP 509934 ONDANSETRON Inactive CHLORASEPTIC MAX SORE THROAT 15-10 MG LOZG 1 every 2 hours prn 2 /04/30 CHLORASEPTIC MAX SORE THROAT 15-10 MG LOZG BENZO ARINA-MENTHOL Inactive COMTREX COLD/COUGH DAY/NITE MS 5-2-10-325 MG MISC 2 caps deja ry 4 hours COMTREX COLD/COUGH DAY/NITE MS 5-2-10-325 MG MIS C [id number]-APAP Inactive [facility] TUSSIN COUGH/COLD CF 5-10-100 MG/5ML LIQD 2 teaspoons ev eliud 4 hours [facility] TUSSIN COUGH/COLD CF 5-10-100 MG/5ML LIQD [id number]-PI-VN Inactive IBUPROFEN 800 MG TABS take one po Q 8 hours IBUPROFEN 800 MG TABS 437046 IBUPROFEN Inactive VITAMINS 0.8 MG TABS take 1 tab po qday 08/08 VITAMINS 0.8 MG TABS [id number]-ID-FA Inactive TESSALON PERLES 100 MG CAP 1 tablet by mouth 3 times daily 11/01 TESSALON PERLES 100 MG CAP 454385 BENZONATATE Inact zaid AMOXICILLIN 500 MG CAP 1 tab by mouth 3 times daily 08/12/16 AMOXICILLIN 500 MG CAP 150422 AMOXICILLIN Inactive GUAIFENESIN-CODEINE 100-10 MG/5ML ORAL SYRP 2 tsp every 6 hours prn GUAIFENESIN-CODEINE 100-10 MG/5ML ORAL SYRP 294082 GUAIFENESIN-CODEINE Inactive VICKS DAYQUIL SEVERE COLD/FLU TABS 1 tab every 6 hours prn 12/10 VICKS DAYQUIL SEVERE COLD/FLU TABS PHENYLEPHRINE -DM-GG-APAP TABS Inactive BACTRIM DS 800-160 MG TABS 1 twice a day BACTRIM DS 800- 160 MG TABS 897546 SULFAMETHOXAZOLE-TRIMETHOPRIM Inactive PROMETHAZINE HCL 25 MG TABS 1 four times a day as needed for vomiting PROMETHAZINE HCL 25 MG TABS 065662 PROMETHAZINE HCL Inactive ZYRTEC ALLERGY 10 MG CAPS 1 po qd ZY RTEC ALLERGY 10 MG CAPS CETIRIZINE HCL Inactive MACROBID 100 MG CAP 1 cap by mouth twice daily MACROBID 100 MG CAP 6016056 NITROFURANTOIN MONOHYD MACRO Inactive LOMOTIL 2.5-0.025 MG TABS 1 to 2 four times a day as needed for diarrhea LOMOTIL 2.5-0.025 MG TABS 6530779 DIPHENOXYLATE-A TROPINE Inactive CYCLOBENZAPRINE HCL 10 MG TABS 1/2 - 1 tablet by mouth three times daily as needed for muscle spasm/pain CYCLOBENZAP RINE HCL 10 MG TABS 444012 CYCLOBENZAPRINE HCL Inactive AMOXICILLIN 500 MG TABS 2 tabs twice a day for 10 days AMOXICILLIN 500 MG TABS 782474 AMOXICILLIN Inactive LOMOTIL 2.5-0.025 MG TAB 1 to 2 four times a day as needed f or diarrhea LOMOTIL 2.5-0.025 MG TAB 3084557 DIPHENOXYLATE-AT ROPINE Inactive ZOFRAN 4 MG ORAL TABS 1 TAB PO Q 6 HRS PRN NAUSEA 2014 ZOFRAN 4 MG ORAL TABS 831310 ONDANSETRON HCL Inactive CITRATE OF MAGNESIA ORAL SOLN 1 bottle today for constipation 20 07/10/15 CITRATE OF MAGNESIA ORAL SOLN 7261238 MAGNESIUM CITRATE Inactive PROMETHAZINE HCL 12.5 MG TABS 1 tablet by mouth every 6 hours as needed for nausea/vomiting PROMETHAZINE HCL 12.5 MG TABS 789832 PROMETHAZINE HCL Inactive PREDNISONE 20 MG TAB 1 tablet twice daily for 2 d ays, then 1 tablet once daily for 2 days PREDNISONE 20 MG TAB 903376 PREDNISONE Inac tive AMOXICILLIN 500 MG TABS take 1 tab po TID AMOXICILLIN 500 MG TABS 293391 AMOXICILLIN Inactive AMOXICILLIN 500 MG CAP 1 tab by mouth 3 times daily 09/23/20 AMOXICILLIN 500 MG CAP 176467 AMOXICILLIN Inactive ZITHROMAX 250 MG TAB 2 po today, then 1 po q days 2-5 ZITHROMAX 250 MG TAB 4988208 AZITHROMYCIN Inactive ZITHROMAX 250 MG TAB 2 po today, then 1 po q days 2-5 ZITHROMAX 250 MG TAB 8346267 AZITHROMYCIN Inactive AZITHROMYCIN 500 MG TABS 1 PO q day x 6 days 3 AZITHROMYCIN 500 MG TABS 1283833 AZITHROMYCIN Inactive BACTRIM 400-80 MG TABS take one po BID BA CTRIM 400-80 MG TABS 628572 SULFAMETHOXAZOLE-TRIMETHOPRIM Inactive AZITHROMYCIN 250 MG TABS 2 po qd x 1 day, then 1 po qd x 4 days AZITHROMYCIN 250 MG TABS 4872436 AZITHROMYCIN Inactiv e PREDNISONE 20 MG TAB 2 tabs daily for 3 days, 1 t ab daily for 3 days, 1/2 tab daily for 2 days PREDNISONE 20 MG TAB 178106 PREDNISON E Inactive ZITHROMAX 250 MG TAB 2 po today, then 1 po q days 2-5 ZITHROMAX 250 MG TAB 1219743 AZITHROMYCIN Inactive FLAGYL 500 MG TAB 1 tablet by mouth two times daily 07/11/29 FLAGYL 500 MG TAB 689051 METRONIDAZOLE Inactive AUGMENTIN 875-125 MG TAB 1 tab by mouth twice daily with food 20 08/12/16 AUGMENTIN 875-125 MG TAB 994758 AMOXICILLIN-POT CLAVULA ANGELO Inactive NAPROXEN 500 MG TAB one tab PO BID NAPROXEN 500 MG TAB 853185 NAPROXEN Inactive PREDNISONE 20 MG TAB 2 tabs daily for 3 days, 1 t ab daily for 3 days, 1/2 tab daily for 2 days PREDNISONE 20 MG TAB 965400 PREDNISON E Inactive AZITHROMYCIN 250 MG TABS 2 po qd x 1 day, then 1 po qd x 4 days AZITHROMYCIN 250 MG TABS 2883204 AZITHROMYCIN Inactiv e PREDNISONE 20 MG TAB 2 tabs daily for 3 days, 1 t ab daily for 3 days, 1/2 tab daily for 2 days PREDNISONE 20 MG TAB 136986 PREDNISON E Inactive ZITHROMAX Z-EMIL 250 MG TABS 2 today, then 1 daily for 4 days 201 03/31/18 ZITHROMAX Z-EMIL 250 MG TABS 7827894 AZITHROMYCIN Inac tive Advance Directives Directive Description [...] Panel - Chemistry sodium, serum 136 mmol/L 746-972 7173/04/26 carbon dioxide, venous blood 29.9 mmol/L 21.0-32 [...] - Chem istry sodium, serum 139 mmol/L 881-273 8637/12/15 carbon dioxide, venous blood 30.2 mmol/L 21.0-32 [...] Negative Encounters Code Encounter Date Provider Facility CPT-44625 Level 3 Est. Patient 09:24:42 CDT [facility] CPT-69511 Level 3 Est. Patient 09:12:56 CDT Arie mcqueen MD [facility] CPT-21612 Level 3 Est. Patient 16:40:54 CDT Jose Zhong MD [facility] CPT-57034 Level 2 Est. Patient 13:01:13 CDT [facility] CPT-67814 Level 3 Est. Patient 11:55:30 BIN CLEANER Jono black DO [facility] CPT-77983 Level 3 Est. Patient 09:52:36 BIN CLEANER Steve CABRERA [facility] CPT-49932 Level 3 Est. Patient 16:25:33 BIN CLEANER Rich Rosales MD [facility] CPT-57383 Level 3 Est. Patient 20:33:55 CDT Arie mcqueen MD [facility] CPT-64672 Level 3 Est. Patient 14:18:20 CDT Rich Rosales MD [facility] CPT-52578 Level 4 Est. Patient 09:34:31 CDT Arie mcqueen MD [facility]-78825 Level 3 Est. Patient 09:08:55 BIN CLEANER Liliana vincent MD PhD [facility] CPT-52497 Level 3 Est. Patient 16:44:07 BIN CLEANER Arie mcqueen MD [facility] CPT-79637 Level 3 Est. Patient 10:44:27 CDT Arie mcqueen MD [facility] CPT-05127 Level 3 Est. Patient 08:55:41 CDT Jose Zhong MD [facility] CPT-18764 Level 3 Est. Patient 18:37:31 CDT Liliana vincent MD PhD [facility] CPT-60060 Level 3 Est. Patient 14:28:23 CDT Abelardo HERNANDEZ [facility] CPT-84989 Level 3 Est. Patient 15:18:13 BIN CLEANER Arie mcqueen MD [facility] CPT-71506 Level 3 Est. Patient 10:11:29 BIN CLEANER Arie mcqueen MD [facility] CPT-31788 Level 3 Est. Patient 10:55:57 BIN CLEANER Jono black DO [facility] CPT-48631 Level 3 Est. Patient 17:29:05 CDT Arie mcqueen MD [facility] Procedures Code Procedure Name Date Entry Date Standard Desc ription CPT-69379 First Vx - Ix admin via ID I M or jet injects without counseling by physician 16:57:10 CDT CPT-83399 Fluzone Preservative Free Intramuscular Suspension 16:57:10 CDT CPT-J0696 Rocephin 1000 mg (Ceftriaxone) 11:49:23 CDT CPT-J1040 Depo Medrol 80 mg (Methyl Prednisolone A cetate) 11:49:23 CDT CPT-J1100 Decadron 8mg (Dexamethasone) 11:49:23 CDT 2 CPT-23934 Abx/Therapy Injection 11:49:23 CDT CPT-94954 Abx/Therapy Injection 11:49:23 CDT CPT-03441 Abd compl w upright 09:07:26 BIN CLEANER CPT-67338 Ear Wash 16:12:47 BIN CLEANER CPT-OV Office Visit 11:12:01 CDT CPT-OV Office Visit 15:30:23 CDT CPT-61145 Sono pelvis non OB uterus ovaries cervix 15:50:44 CDT CPT-89711 Hand comp min 3V 16:42:32 CDT CPT-09309 Abd compl w upright 12:17:01 CDT CPT-87758 Nexplanon Placement 15:07:39 BIN CLEANER CPT-51691 Removal of IUD 15:07:39 BIN CLEANER CPT-29610 TB Tubersol 12:09:32 CDT CPT-95150 TB Tubersol 13:55:43 CDT
--- OUTSIDE RECORDS SUMMARY | 2020-03-03 07:26 | XMS REPORT | Clinical Summary ---
Author Author Admin, Diamante Marcelo Organization [facility] Address Unknown Phone Unavailable Allergies, Adverse Reactions, Alerts Allergy Name Reaction Description Start Date Severity Status Pr ovider No Known Allergies Brii Pacheco Conditions or Problems Problem Name Problem Code [...] Myrna Roberto MD Leiomyoma of uterus, unspecified FH BREAST CANCER ICD-V16.3 Inactive Jose Sin D COLON CANCER ICD-V16.0 Inactive Jose Zhong [...] Provider Patient Instruction NAPROXEN 500 MG TAB one tab PO BID NAPROXEN 332 [id number] Active Myrna Roberto MD Active LOMOTIL 2.5-0.025 MG TABS 1 to 2 four times a day as needed for diarrhea DIPHENOXYLATE-ATROPINE 51667392502 Active Rich mcintosh MD Active PROMETHAZINE HCL 25 MG TABS 1 four times a day as needed for vomiting PROMETHAZINE HCL 26622053368 Active Rich Rosales MD Active BACTRIM DS 800-160 MG TABS 1 twice a day SULFAMETHOXAZOLE-TRIMETHOPRIM 84887573941 Active Rich Rosales MD Active AUGMENTIN 875-125 MG TAB 1 tab by mouth twice daily with food 20 08/12/16 AMOXICILLIN-POT CLAVULANATE 19375457740 No Longer Active Liliana Estrada MD PhD Active CYCLOBENZAPRINE HCL 10 MG TABS 1/2 - 1 tablet by mouth three times daily as needed for muscle spasm/pain CYCLOBENZAPRINE HCL 13570 608874 Active Liliana Estrada MD PhD Active GUAIFENESIN-CODEINE 100-10 MG/5ML ORAL SYRP 2 tsp every 6 hours prn GUAIFENESIN-CODEINE 28829607136 Active Liliana Estrada MD PhD Active VICKS DAYQUIL SEVERE COLD/FLU TABS 1 tab every 6 hours prn [id number] TABS 55435926160 Active Liliana Estrada MD PhD Active AMOXICILLIN 500 MG CAP 1 tab by mouth 3 times daily 08/12/16 AMOXICILLIN 13458822466 No Longer Active Liliana Estrada MD PhD Acti ve TESSALON PERLES 100 MG CAP 1 tablet by mouth 3 times daily 11/01 BENZONATATE 90536621593 No Longer Active Liliana Estrada MD PhD Active FLAGYL 500 MG TAB 1 tablet by mouth two times daily 07/11/29 METRONIDAZOLE 37232044737 No Longer Active Nilam Weber Active ZITHROMAX 250 MG TAB 2 po today, then 1 po q days 2-5 AZITHROMYCIN 82111282309 No Longer Active Arie Casper MD Acti ve VITAMINS 0.8 MG TABS take 1 tab po qday 08/08 [id number] 38777564075 No Longer Active Arie Casper MD Active IBUPROFEN 800 MG TABS take one po Q 8 hours IBU PROFEN 96227824726 No Longer Active Arie Casper MD Active [facility] TUSSIN COUGH/COLD CF 5-10-100 MG/5ML LIQD 2 teaspoons ev eliud 4 hours [id number] 06067169350 No Longer Active Blaine Casper MD Active COMTREX COLD/COUGH DAY/NITE MS 5-2-10-325 MG MISC 2 caps deja ry 4 hours [id number] 91270821628 No Longer Active Landon Casper MD Active CHLORASEPTIC MAX SORE THROAT 15-10 MG LOZG 1 every 2 hours prn 2 BENZOCAINE-MENTHOL 56413652643 No Longer Active Arie Marcelo Active PREDNISONE 20 MG TAB 2 tabs daily for 3 days, 1 t ab daily for 3 days, 1/2 tab daily for 2 days PREDNISONE 09600792544 No Longer Active Jose Zhong MD Active AZITHROMYCIN 250 MG TABS 2 po qd x 1 day, then 1 po qd x 4 days AZITHROMYCIN 29351953708 No Longer Active Jose Zhong MD Active ZOFRAN ODT 4 MG TBDP 1 po q6hr PRN Nausea ONDAN SETRON 11191527511 No Longer Active Rich Rosales MD Active ZOFRAN 4 MG TABS 1 tablet every 4 hours ONDANSE JERRELL HCL 03169601259 No Longer Active Rich Rosales MD Active MUCINEX 600 MG [id number] Take 1-2 tablets every 12 hours GUAIFENESIN 47910191143 No Longer Active Rich Rosales MD Activ e BACTRIM 400-80 MG TABS take one po BID SULFAMETHOXAZOLE-TRIMETHOPRIM 45857415829 No Longer Active Abelardo HERNANDEZ Active AZITHROMYCIN 500 MG TABS 1 PO q day x 6 days AZ ITHROMYCIN 97540577902 No Longer Active Tin HERNANDEZ Active ZITHROMAX 250 MG TAB 2 po today, then 1 po q days 2-5 AZITHROMYCIN 19689304426 No Longer Active Arie Casper MD Acti ve ZITHROMAX 250 MG TAB 2 po today, then 1 po q days 2-5 AZITHROMYCIN 94098641101 No Longer Active Arie Casper MD Acti ve AMOXICILLIN 500 MG CAP 1 tab by mouth 3 times daily 09/23/20 AMOXICILLIN 68581590315 No Longer Active Arie Casper MD Acti ve BACTRIM DS 800-160 MG TAB 1 tab by mouth twice daily 2 TRIMETHOPRIM-SULFAMETHOXAZOLE 85495450380 No Longer Active Arie Casper MD Active AMOXICILLIN 500 MG TABS take 1 tab po TID AMOXI CILLIN 51395733433 No Longer Active Arie Casper MD Active BACTRIM DS 800-160 MG TAB 1 tab by mouth twice daily 2 BACTRIM DS 800-160 MG TAB TRIMETHOPRIM-SULFAMETHOXAZOLE Inac tive MUCINEX 600 MG [id number] Take 1-2 tablets every 12 hours MUCINEX 600 MG [id number] GUAIFENESIN Inactive ZOFRAN 4 MG TABS 1 tablet every 4 hours ZOFRAN 4 MG TABS 790647 ONDANSETRON HCL Inactive ZOFRAN ODT 4 MG TBDP 1 po q6hr PRN Nausea ZOFRAN ODT 4 MG TBDP 663531 ONDANSETRON Inactive CHLORASEPTIC MAX SORE THROAT 15-10 MG LOZG 1 every 2 hours prn 2 /04/30 CHLORASEPTIC MAX SORE THROAT 15-10 MG LOZG BENZO ARINA-MENTHOL Inactive COMTREX COLD/COUGH DAY/NITE MS 5-2-10-325 MG MISC 2 caps deja ry 4 hours COMTREX COLD/COUGH DAY/NITE MS 5-2-10-325 MG MIS C [id number] Inactive [facility] TUSSIN COUGH/COLD CF 5-10-100 MG/5ML LIQD 2 teaspoons ev eliud 4 hours [facility] TUSSIN COUGH/COLD CF 5-10-100 MG/5ML LIQD [id number] Inactive IBUPROFEN 800 MG TABS take one po Q 8 hours IBUPROFEN 800 MG TABS 868934 IBUPROFEN Inactive VITAMINS 0.8 MG TABS take 1 tab po qday 08/08 VITAMINS 0.8 MG TABS [id number] Inactive TESSALON PERLES 100 MG CAP 1 tablet by mouth 3 times daily 11/01 TESSALON KIRTI 100 MG CAP 865942 BENZONATATE Inact zaid AMOXICILLIN 500 MG CAP 1 tab by mouth 3 times daily 08/12/16 AMOXICILLIN 500 MG CAP 928250 AMOXICILLIN Inactive AMOXICILLIN 500 MG TABS take 1 tab po TID AMOXICILLIN 500 MG TABS 501157 AMOXICILLIN Inactive AMOXICILLIN 500 MG CAP 1 tab by mouth 3 times daily 09/23/20 AMOXICILLIN 500 MG CAP 617418 AMOXICILLIN Inactive ZITHROMAX 250 MG TAB 2 po today, then 1 po q days 2-5 ZITHROMAX 250 MG TAB 8766700 AZITHROMYCIN Inactive ZITHROMAX 250 MG TAB 2 po today, then 1 po q days 2-5 ZITHROMAX 250 MG TAB 4579124 AZITHROMYCIN Inactive AZITHROMYCIN 500 MG TABS 1 PO q day x 6 days 3 AZITHROMYCIN 500 MG TABS 6192812 AZITHROMYCIN Inactive BACTRIM 400-80 MG TABS take one po BID BA CTRIM 400-80 MG TABS 079106 SULFAMETHOXAZOLE-TRIMETHOPRIM Inactive AZITHROMYCIN 250 MG TABS 2 po qd x 1 day, then 1 po qd x 4 days AZITHROMYCIN 250 MG TABS 7443260 AZITHROMYCIN Inactiv e PREDNISONE 20 MG TAB 2 tabs daily for 3 days, 1 t ab daily for 3 days, 1/2 tab daily for 2 days PREDNISONE 20 MG TAB 884942 PREDNISON E Inactive ZITHROMAX 250 MG TAB 2 po today, then 1 po q days 2-5 ZITHROMAX 250 MG TAB 7753824 AZITHROMYCIN Inactive FLAGYL 500 MG TAB 1 tablet by mouth two times daily 07/11/29 FLAGYL 500 MG TAB 497393 METRONIDAZOLE Inactive AUGMENTIN 875-125 MG TAB 1 tab by mouth twice daily with food 20 08/12/16 AUGMENTIN 875-125 MG TAB 768107 AMOXICILLIN-POT CLAVULA ANGELO Inactive Advance Directives Directive [...] mm Lab Report: CBC W/DIFF - Hematology erythrocyte (RBC) count 4.92 10^6/MM^3 10*6/mm3 4.04-5.4 8 lymphocytes as percent of blood leukocytes 28.4 % 20.5-51.1 monocytes as percent of blood leukocytes 12.7 % 1.7-9.3 neutrophils as percent of blood leukocytes 54.8 % 42.2-75.2 leukocyte count, blood 4.4 10^3/MM^3 10*3/mm3 4.6-10.2 hemoglobin, blood 13.5 g/dL 12.0-16.0 hematocrit, blood 40.7 % 36.0-46.0 mean corpuscular volume, RBC 83 fL 80-97 mean corpuscular hemoglobin, RBC 27.5 pg 27. 0-31.2 mean corpuscular hemoglobin concentration, RBC 33.2 G/DL % 31.8-35.4 red blood cell distribution width 13.5 % 11 .6-14.8 platelet count 214 10^3/MM^3 10*3/mm3 142-424 Lab Report: Chlamydia/GC APTIMA/[id number] - Lab chlamydia DNA probe NOT DETECTED NOT DETECTED Lab Report: Chlamydia/GC APTIMA/[id number] - Microbiology Neisseria gonorrhoeae DNA probe NOT DETECTED NO T DETECTED Lab Report: LILIA INFLUENZA A/B - Toxico [...] >=1.030 1.000-1.030 pH, urine, semiquantitative 5.5 5.0-8.5 Encounters Code Encounter Date Provider Facility CPT-31980 Level 3 Est. Patient 14:18:20 CDT Rich Rosales MD [facility] CPT-30088 Level 4 Est. Patient 09:34:31 CDT Arie mcqueen MD [facility] CPT-62031 Level 3 Est. 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 Patient 16:44:07 MERCERIZER 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 Arie mcqueen MD [facility] CPT-18900 Level 3 Est. Patient 10:44:27 CDT Arie mcqueen MD [facility] CPT-50063 Level 3 Est. Patient 08:55:41 CDT Jose Zhong MD [facility] CPT-49265 Level 3 Est. Patient 18:37:31 CDT Liliana vincent MD PhD [facility] CPT-31889 Level 3 Est. Patient 14:28:23 CDT Abelardo HERNANDEZ [facility] CPT-73980 Level 3 Est. Patient 15:18:13 MERCERIZER 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 Arie mcqueen MD [facility] CPT-88137 Level 3 Est. Patient 10:11:29 MERCERIZER 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 Arie mcqueen MD [facility] CPT-26047 Level 3 Est. Patient 10:55:57 MERCERIZER 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 Jono black DO [facility] CPT-84458 Level 3 Est. Patient 17:29:05 CDT Arie mcqueen MD [facility] Procedures Code Procedure Name Date Entry Date Standard Desc ription CPT-OV Office Visit 15:30:23 CDT CPT-58945 Sono pelvis non OB uterus ovaries cervix 15:50:44 CDT CPT-05647 Hand comp min 3V 16:42:32 CDT CPT-02923 Abd compl w upright 12:17:01 CDT CPT-63350 Nexplanon Placement 15:07:39 MERCERIZER 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 CPT-86539 Removal of IUD 15:07:39 MERCERIZER 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 CPT-79277 TB Tubersol 12:09:32 CDT CPT-21439 TB Tubersol 13:55:43 CDT
--- OUTSIDE RECORDS SUMMARY | 2020-03-03 07:26 | XMS REPORT | Clinical Summary ---
Author Author Admin, Diamante Marcelo Organization [facility] Address Unknown Phone Unavailable Allergies, Adverse Reactions, [...] intrauterine contraceptive device Abdominal pain 789.00 Resolved oJse Zhong MD Abdominal pain, unspecified site Abdominal [...] implantable subdermal contraceptiv e Active Brii Russ [employer] Vaginal bleeding 623.8 Active Arie Casper MD Other specified noninflammatory disorders of vagina Influenza like illness 487.1 Active Jose Mcwilliams MD Influenza with other respiratory manifestations COLON CANCER ICD-V16.0 Inactive Jose Zhong MD [...] MD BREAST CANCER ICD-V16.3 Inactive Jose Marcelo Fever [...] Generic Name NDC Status Provider Patient Instruction TAMIFLU 75 MG ORAL CAPSULE 1 po BID x 5 days 0 OSELTAMIVIR PHOSPHATE [id number] No Longer Active Jose Zhong MD Activ e CHERATUSSIN AC 100-10 MG/5ML ORAL SYRUP 1 tsp by mouth every 4 hours as needed for cough GUAIFENESIN-CODEINE 83229842614 Active Blaine Casper MD Active ZITHROMAX Z-EMIL 250 MG ORAL TABLET 2 today, then 1 daily for 4 d ays AZITHROMYCIN 15763279931 No Longer Active Arie Casper MD Active PROTONIX 40 MG ORAL TABLET DELAYED RELEASE 1 po q a.m. PANTOPRAZOLE SODIUM 32329873989 No Longer Active Arie Casper MD Active BACTRIM DS 800-160 MG ORAL TABLET 1 tab by mouth twice daily 201 05/02/30 TRIMETHOPRIM-SULFAMETHOXAZOLE 73647379254 No Longer Active R [facility] Ty Active NEXPLANON IMPLANT right arm subcutaneously ETONOGESTREL IMPL 97040696265 No Longer Active Brii Russ APRN Active TUSSIONEX PENNKINETIC ER 10-8 MG/5ML ORAL SUSPENSION E XTENDED RELEASE 5ml po q12hr PRN Cough HYDROCOD POLST-CHLORPHEN POLST 5 8721795066 No Longer Active Brii Russ APRN Active CETIRIZINE HCL 10 MG ORAL TABLET 1 po qd PRN Allergies CETIRIZINE HCL 51479949018 No Longer Active Brii Russ APRN Activ e PREDNISONE 20 MG ORAL TABLET 2 tabs daily for 3 days, 1 tab daily for 3 days, 1/2 tab daily for 2 days PREDNISONE 42648540543 No Longer Active Arie Casper MD Active LOMOTIL 2.5-0.025 MG ORAL TABLET 1 tab po four times a day as needed for diarrhea DIPHENOXYLATE-ATROPINE 98256302460 No Lo nger Active Arie Casper MD Active ZOLOFT 50 MG ORAL TABLET 1 tablet by mouth daily 12/08 SERTRALINE HCL 93810936677 No Longer Active Arie Casper MD Ac tive NAPROXEN 500 MG ORAL TABLET Take 1 tab BID NAPR OXEN 86827596800 No Longer Active Arie Casper MD Active CEFDINIR 300 MG ORAL CAPSULE 1 po BID x 10 days CEFDINIR 49096196081 No Longer Active Brii Russ APRN Active PREDNISONE 20 MG ORAL TABLET 1 tablet daily for airway inflammat ion PREDNISONE 63529740525 No Longer Active Brii Russ APRN A ctive CEFDINIR 300 MG ORAL CAPSULE 1 po BID x 10 days CEFDINIR 32597730782 No Longer Active Jono Gagnon DO Active FLONASE 50 MCG/ACT NASAL SUSPENSION 1 spray each nostr il twice daily for allergies and runny nose until gone FLUT ICASONE PROPIONATE 10540830769 No Longer Active Jono Gagnon DO Active ALPRAZOLAM 0.25 MG ORAL TABLET 1 tablet by mouth every 8 hours as needed for stress ALPRAZOLAM 01412601219 No Longer Active Jono Gagnon DO Active ZITHROMAX Z-EMIL 250 MG ORAL TABLET 2 today, then 1 daily for 4 d ays AZITHROMYCIN 50515891488 No Longer Active Arie Casper MD Active PREDNISONE 20 MG ORAL TABLET 2 tabs daily for 3 days, 1 tab daily for 3 days, 1/2 tab daily for 2 days PREDNISONE 31784651475 No Longer Active Brii Russ APRN Active PREDNISONE 20 MG ORAL TABLET 1 tablet twice daily for 2 days, then 1 tablet once daily for 2 days PREDNISONE 88365623243 No Longer Active Brii Russ APRN Active PROMETHAZINE HCL 12.5 MG ORAL TABLET 1 tablet by mouth every 6 hours as needed for nausea/vomiting PROMETHAZINE HCL 56986120625 No L onger Active Jono Gagnon DO Active CITRATE OF MAGNESIA ORAL SOLUTION 1 bottle today for constipatio n MAGNESIUM CITRATE 31976939937 No Longer Active Jono Gagnon DO Active ZOFRAN 4 MG ORAL TABLET 1 TAB PO Q 6 HRS PRN NAUSEA 20 07/10/15 ONDANSETRON HCL 39769252734 No Longer Active Brii Russ APRN Acti ve LOMOTIL 2.5-0.025 MG ORAL TABLET 1 to 2 four times a day as needed for diarrhea DIPHENOXYLATE-ATROPINE 28945015624 No Longer Active January Russ APRN Active AMOXICILLIN 500 MG ORAL TABLET 2 tabs twice a day for 10 days 07/09/11 AMOXICILLIN 20276221094 No Longer Active Brii Russ APRN Active CYCLOBENZAPRINE HCL 10 MG ORAL TABLET 1/2 - 1 tablet b y mouth three times daily as needed for muscle spasm/pain CYCLOBENZAPRINE HCL 29011721825 No Longer Active Arie Casper MD Active LOMOTIL 2.5-0.025 MG ORAL TABLET 1 to 2 four times a day as needed for diarrhea DIPHENOXYLATE-ATROPINE 29106404738 No Longer Active Fozia Casper MD Active MACROBID 100 MG ORAL CAPSULE 1 cap by mouth twice daily NITROFURANTOIN MONOHYD MACRO 28383848796 No Longer Active Arie Casper MD Active ZYRTEC ALLERGY 10 MG ORAL CAPSULE 1 po qd CE TIRIZINE HCL 87792691676 No Longer Active Arie Casper MD Active AZITHROMYCIN 250 MG ORAL TABLET 2 po qd x 1 day, then 1 po q d x 4 days AZITHROMYCIN 13309358717 No Longer Active Jessica salgado APRN Active PREDNISONE 20 MG ORAL TABLET 2 tabs daily for 3 days, 1 tab daily for 3 days, 1/2 tab daily for 2 days PREDNISONE 02596151200 No Longer Active Jessica Heaton APRN Active PROMETHAZINE HCL 25 MG ORAL TABLET 1 four times a day as nee ded for vomiting PROMETHAZINE HCL 01521044500 No Longer Active Myrna Roberto MD Active BACTRIM DS 800-160 MG ORAL TABLET 1 twice a day 05/30 SULFAMETHOXAZOLE-TRIMETHOPRIM 57230412601 No Longer Active Myrna Roberto MD Active VICKS DAYQUIL SEVERE COLD/FLU TABLET 1 tab every 6 hours prn 201 02/22/17 PVQTQUALMEIZI-[id number]-TM-APAP TABS 44630625825 No Longer Active Chris Roberto MD Active GUAIFENESIN-CODEINE 100-10 MG/5ML ORAL SYRUP 2 tsp every 6 hours prn GUAIFENESIN-CODEINE 53194352084 No Longer Active Myrna Roberto MD Active NAPROXEN 500 MG ORAL TABLET one tab PO BID NAPR OXEN 16751248140 No Longer Active Myrna Roberto MD Active AUGMENTIN 875-125 MG ORAL TABLET 1 tab by mouth twice daily with food AMOXICILLIN-POT CLAVULANATE 20075576628 No Longer Act zaid Liliana Estrada MD PhD Active AMOXICILLIN 500 MG ORAL CAPSULE 1 tab by mouth 3 times daily 201 02/21/05 AMOXICILLIN 97508450380 No Longer Active Liliana Estrada MD PhD Active TESSALON PERLES 100 MG ORAL CAPSULE 1 tablet by mouth 3 times da cory BENZONATATE 42648865587 No Longer Active Liliana Estrada MD PhD Active FLAGYL 500 MG ORAL TABLET 1 tablet by mouth two times daily 2014 METRONIDAZOLE 80346084453 No Longer Active Nilam Doran tive ZITHROMAX 250 MG ORAL TABLET 2 po today, then 1 po q days 2-5 20 06/08/16 AZITHROMYCIN 62547228288 No Longer Active Arie Casper MD Active VITAMINS 0.8 MG ORAL TABLET take 1 tab po qday [id number] 79799833426 No Longer Active Arie Casper MD Active IBUPROFEN 800 MG ORAL TABLET take one po Q 8 hours 201 02/01/16 IBUPROFEN 42335191113 No Longer Active Arie Casper MD Acti ve [facility] TUSSIN COUGH/COLD CF 5-10-100 MG/5ML ORAL LIQUID 2 teasp oons every 4 hours [id number]-SH-[id number] 10314677749 No Longer Active Blaine Casper MD Active COMTREX COLD/COUGH DAY/NITE MS 5-2-10-325 MG ORAL 2 caps deja ry 4 hours QFRLSOTDE-BYH-[id number]-APAP 89444878359 No Longer Active Da aleksandra Casper MD Active CHLORASEPTIC MAX SORE THROAT 15-10 MG MOUTH/THROAT LOZENGE 1 every 2 hours prn BENZOCAINE-MENTHOL 64166418840 No Longer Active Arie Casper MD Active PREDNISONE 20 MG ORAL TABLET 2 tabs daily for 3 days, 1 tab daily for 3 days, 1/2 tab daily for 2 days PREDNISONE 74554111022 No Longer Active Jose Zhong MD Active AZITHROMYCIN 250 MG ORAL TABLET 2 po qd x 1 day, then 1 po q d x 4 days AZITHROMYCIN 37885470838 No Longer Active Jose Mcwilliams MD Active ZOFRAN ODT 4 MG ORAL TABLET DISINTEGRATING 1 po q6hr PRN Nausea ONDANSETRON 42762259680 No Longer Active Rich Rosales MD Active ZOFRAN 4 MG ORAL TABLET 1 tablet every 4 hours ONDANSETRON HCL 70650428188 No Longer Active Rich Rosales MD Activ e MUCINEX 600 MG ORAL TABLET EXTENDED RELEASE 12 HOUR Ta ke 1-2 tablets every 12 hours GUAIFENESIN 51593560459 No Longer Active Rich Rosales MD Active BACTRIM 400-80 MG ORAL TABLET take one po BID SULFAMETHOXAZOLE-TRIMETHOPRIM 46422245771 No Longer Active Abelardo HERNANDEZ Active AZITHROMYCIN 500 MG ORAL TABLET 1 PO q day x 6 days 20 03/02/23 AZITHROMYCIN 57875733662 No Longer Active Tin HERNANDEZ Activ e ZITHROMAX 250 MG ORAL TABLET 2 po today, then 1 po q days 2-5 20 10/03/08 AZITHROMYCIN 98008000281 No Longer Active Arie Casper MD Active ZITHROMAX 250 MG ORAL TABLET 2 po today, then 1 po q days 2-5 20 09/23/25 AZITHROMYCIN 99234510206 No Longer Active Arie Casper MD Active AMOXICILLIN 500 MG ORAL CAPSULE 1 tab by mouth 3 times daily 201 11/24/09 AMOXICILLIN 59661834621 No Longer Active Arie Casper MD Active BACTRIM DS 800-160 MG ORAL TABLET 1 tab by mouth twice daily 201 11/03/14 TRIMETHOPRIM-SULFAMETHOXAZOLE 87694938040 No Longer Active Fozia Casper MD Active AMOXICILLIN 500 MG ORAL TABLET take 1 tab po TID 08/05 AMOXICILLIN 19389586872 No Longer Active Arie Casper MD Acti ve BACTRIM DS 800-160 MG ORAL TABLET 1 tab by mouth twice daily 201 11/03/14 BACTRIM DS 800-160 MG ORAL TABLET 839567 TRIMETHOPRIM-SULFAMETHOXAZOLE Inactive MUCINEX 600 MG ORAL TABLET EXTENDED RELEASE 12 HOUR Ta ke 1-2 tablets every 12 hours MUCINEX 600 MG ORAL TABLET EXTENDED RELEA SE 12 HOUR GUAIFENESIN Inactive ZOFRAN 4 MG ORAL TABLET 1 tablet every 4 hours ZOFRAN 4 MG ORAL TABLET 908480 ONDANSETRON HCL Inactive ZOFRAN ODT 4 MG ORAL TABLET DISINTEGRATING 1 po q6hr PRN Nausea ZOFRAN ODT 4 MG ORAL TABLET DISINTEGRATING 711324 ONDAN SETRON Inactive CHLORASEPTIC MAX SORE THROAT 15-10 MG MOUTH/THROAT LOZENGE 1 every 2 hours prn CHLORASEPTIC MAX SORE THROAT 15-10 MG MOUTH/THROAT LOZENGE BENZOCAINE-MENTHOL Inactive COMTREX COLD/COUGH DAY/NITE MS 5-2-10-325 MG ORAL 2 caps deja ry 4 hours COMTREX COLD/COUGH DAY/NITE MS 5-2-10-325 MG ORA L [id number] Inactive [facility] TUSSIN COUGH/COLD CF 5-10-100 MG/5ML ORAL LIQUID 2 teasp oons every 4 hours [facility] TUSSIN COUGH/COLD CF 5-10-100 MG/5ML ORAL LI QUID [id number] Inactive IBUPROFEN 800 MG ORAL TABLET take one po Q 8 hours 201 02/01/16 IBUPROFEN 800 MG ORAL TABLET 637882 IBUPROFEN Inactive VITAMINS 0.8 MG ORAL TABLET take 1 tab po qday VITAMINS 0.8 MG ORAL TABLET [id number]-[id number] E-FA Inactive TESSALON PERLES 100 MG ORAL CAPSULE 1 tablet by mouth 3 times da cory TESSALON PERLES 100 MG ORAL CAPSULE 168113 BENZONATATE Inactive AMOXICILLIN 500 MG ORAL CAPSULE 1 tab by mouth 3 times daily 201 02/21/05 AMOXICILLIN 500 MG ORAL CAPSULE 500534 AMOXICILLIN Inactive GUAIFENESIN-CODEINE 100-10 MG/5ML ORAL SYRUP 2 tsp every 6 hours prn GUAIFENESIN-CODEINE 100-10 MG/5ML ORAL SYRUP 513682 GUAIFENESIN-CODEINE Inactive VICKS DAYQUIL SEVERE COLD/FLU TABLET 1 tab every 6 hours prn 201 02/22/17 VICKS DAYQUIL SEVERE COLD/FLU TABLET PHENYLEPHRI JM-[id number]-APAP TABS Inactive BACTRIM DS 800-160 MG ORAL TABLET 1 twice a day 05/30 BACTRIM DS 800-160 MG ORAL TABLET 135823 SULFAMETHOXAZOLE-TRIMETHOPRIM Inactiv e PROMETHAZINE HCL 25 MG ORAL TABLET 1 four times a day as nee ded for vomiting PROMETHAZINE HCL 25 MG ORAL TABLET 577555 PROMETHAZINE HCL Inactive ZYRTEC ALLERGY 10 MG ORAL CAPSULE 1 po qd ZYRTEC ALLERGY 10 MG ORAL CAPSULE CETIRIZINE HCL Inactive MACROBID 100 MG ORAL CAPSULE 1 cap by mouth twice daily MACROBID 100 MG ORAL CAPSULE 1640758 NITROFURANTOIN MONOHYD MACRO In active LOMOTIL 2.5-0.025 MG ORAL TABLET 1 to 2 four times a day as needed for diarrhea LOMOTIL 2.5-0.025 MG ORAL TABLET 9771624 DIPHENOXYLATE-ATROPINE Inactive CYCLOBENZAPRINE HCL 10 MG ORAL TABLET 1/2 - 1 tablet b y mouth three times daily as needed for muscle spasm/pain CYCLOBEN ZAPRINE HCL 10 MG ORAL TABLET 314952 CYCLOBENZAPRINE HCL Inactive AMOXICILLIN 500 MG ORAL TABLET 2 tabs twice a day for 10 days 07/09/11 AMOXICILLIN 500 MG ORAL TABLET 766551 AMOXICILLIN I nactive LOMOTIL 2.5-0.025 MG ORAL TABLET 1 to 2 four times a day as needed for diarrhea LOMOTIL 2.5-0.025 MG ORAL TABLET 6915111 DIPHENOXYLATE-ATROPINE Inactive ZOFRAN 4 MG ORAL TABLET 1 TAB PO Q 6 HRS PRN NAUSEA 07/10/15 ZOFRAN 4 MG ORAL TABLET 356017 ONDANSETRON HCL Inactive CITRATE OF MAGNESIA ORAL SOLUTION 1 bottle today for constipatio n CITRATE OF MAGNESIA ORAL SOLUTION 0549341 MAGNESIUM CITR ATE Inactive PROMETHAZINE HCL 12.5 MG ORAL TABLET 1 tablet by mouth every 6 hours as needed for nausea/vomiting PROMETHAZINE HCL 12.5 MG ORA L TABLET 549919 PROMETHAZINE HCL Inactive PREDNISONE 20 MG ORAL TABLET 1 tablet twice daily for 2 days, then 1 tablet once daily for 2 days PREDNISONE 20 MG ORAL TABLET 591456 PREDNISONE Inactive ALPRAZOLAM 0.25 MG ORAL TABLET 1 tablet by mouth every 8 hours as needed for stress ALPRAZOLAM 0.25 MG ORAL TABLET 653422 ALPRA ZOLAM Inactive FLONASE 50 MCG/ACT NASAL SUSPENSION 1 spray each nostr il twice daily for allergies and runny nose until gone FLON ASE 50 MCG/ACT NASAL SUSPENSION 5830216 FLUTICASONE PROPIONATE Inactive PREDNISONE 20 MG ORAL TABLET 1 tablet daily for airway inflammat ion PREDNISONE 20 MG ORAL TABLET 620414 PREDNISONE [place] ctive NAPROXEN 500 MG ORAL TABLET Take 1 tab BID NAPROXEN 500 MG ORAL TABLET 236170 NAPROXEN Inactive ZOLOFT 50 MG ORAL TABLET 1 tablet by mouth daily 12/08 ZOLOFT 50 MG ORAL TABLET 431065 SERTRALINE HCL Inactive LOMOTIL 2.5-0.025 MG ORAL TABLET 1 tab po four times a day as needed for diarrhea LOMOTIL 2.5-0.025 MG ORAL TABLET 5462330 DIPHENOXYLATE-ATROPINE Inactive CETIRIZINE HCL 10 MG ORAL TABLET 1 po qd PRN Allergies CETIRIZINE HCL 10 MG ORAL TABLET 2648168 CETIRIZINE HCL Inactiv e TUSSIONEX PENNKINETIC ER 10-8 MG/5ML ORAL SUSPENSION E XTENDED RELEASE 5ml po q12hr PRN Cough TUSSIONEX PENNKINETI C ER 10-8 MG/5ML ORAL SUSPENSION EXTENDED RELEASE HYDROCOD POLST-CHLORPHEN POLST I nactive NEXPLANON IMPLANT right arm subcutaneously NEXPLANON IMPLANT ETONOGESTREL IMPL Inactive PROTONIX 40 MG ORAL TABLET DELAYED RELEASE 1 po q a.m. PROTONIX 40 MG ORAL TABLET DELAYED RELEASE 512117 PANTOPRAZOLE SODI UM Inactive AMOXICILLIN 500 MG ORAL TABLET take 1 tab po TID 08/05 AMOXICILLIN 500 MG ORAL TABLET 032029 AMOXICILLIN Inactive AMOXICILLIN 500 MG ORAL CAPSULE 1 tab by mouth 3 times daily 201 11/24/09 AMOXICILLIN 500 MG ORAL CAPSULE 281611 AMOXICILLIN Inactive ZITHROMAX 250 MG ORAL TABLET 2 po today, then 1 po q days 2-5 20 09/23/25 ZITHROMAX 250 MG ORAL TABLET 602607 AZITHROMYCIN Arlen ctive ZITHROMAX 250 MG ORAL TABLET 2 po today, then 1 po q days 2-5 20 10/03/08 ZITHROMAX 250 MG ORAL TABLET 332750 AZITHROMYCIN Arlen ctive AZITHROMYCIN 500 MG ORAL TABLET 1 PO q day x 6 days 20 03/02/23 AZITHROMYCIN 500 MG ORAL TABLET 5166642 AZITHROMYCIN Inactive BACTRIM 400-80 MG ORAL TABLET take one po BID BACTRIM 400- 80 MG ORAL TABLET 175306 SULFAMETHOXAZOLE-TRIMETHOPRIM Inactive AZITHROMYCIN 250 MG ORAL TABLET 2 po qd x 1 day, then 1 po q d x 4 days AZITHROMYCIN 250 MG ORAL TABLET 297764 AZITHROMY ALLISON Inactive PREDNISONE 20 MG ORAL TABLET 2 tabs daily for 3 days, 1 tab daily for 3 days, 1/2 tab daily for 2 days PREDNISONE 20 MG ORAL T ABLET 787124 PREDNISONE Inactive ZITHROMAX 250 MG ORAL TABLET 2 po today, then 1 po q days 2-5 20 06/08/16 ZITHROMAX 250 MG ORAL TABLET 925295 AZITHROMYCIN Arlen ctive FLAGYL 500 MG ORAL TABLET 1 tablet by mouth two times daily 2014 FLAGYL 500 MG ORAL TABLET 719447 METRONIDAZOLE Inacti ve AUGMENTIN 875-125 MG ORAL TABLET 1 tab by mouth twice daily with food AUGMENTIN 875-125 MG ORAL TABLET 314835 AMOXICIL ELSA-POT CLAVULANATE Inactive NAPROXEN 500 MG ORAL TABLET one tab PO BID NAPROXEN 500 MG ORAL TABLET 676618 NAPROXEN Inactive PREDNISONE 20 MG ORAL TABLET 2 tabs daily for 3 days, 1 tab daily for 3 days, 1/2 tab daily for 2 days PREDNISONE 20 MG ORAL T ABLET 564252 PREDNISONE Inactive AZITHROMYCIN 250 MG ORAL TABLET 2 po qd x 1 day, then 1 po q d x 4 days AZITHROMYCIN 250 MG ORAL TABLET 482670 AZITHROMY ALLISON Inactive PREDNISONE 20 MG ORAL TABLET 2 tabs daily for 3 days, 1 tab daily for 3 days, 1/2 tab daily for 2 days PREDNISONE 20 MG ORAL T ABLET 422922 PREDNISONE Inactive ZITHROMAX Z-EMIL 250 MG ORAL TABLET 2 today, then 1 daily for 4 d ays ZITHROMAX Z-EMIL 250 MG ORAL TABLET 599803 AZITHROMYCIN Inactive CEFDINIR 300 MG ORAL CAPSULE 1 po BID x 10 days 12/18 CEFDINIR 300 MG ORAL CAPSULE 442248 CEFDINIR Inactive CEFDINIR 300 MG ORAL CAPSULE 1 po BID x 10 days CEFDINIR 300 MG ORAL CAPSULE 880901 CEFDINIR Inactive PREDNISONE 20 MG ORAL TABLET 2 tabs daily for 3 days, 1 tab daily for 3 days, 1/2 tab daily for 2 days PREDNISONE 20 MG ORAL T ABLET 279306 PREDNISONE Inactive BACTRIM DS 800-160 MG ORAL TABLET 1 tab by mouth twice daily 201 05/02/30 BACTRIM DS 800-160 MG ORAL TABLET 485927 TRIMETHOPRIM-SULFAMETHOXAZOLE Inactive ZITHROMAX Z-EMIL 250 MG ORAL TABLET 2 today, then 1 daily for 4 d ays ZITHROMAX Z-EMIL 250 MG ORAL TABLET 690805 AZITHROMYCIN Inactive TAMIFLU 75 MG ORAL CAPSULE 1 po BID x 5 days 0 TAMIFLU 75 MG ORAL CAPSULE 264830 OSELTAMIVIR PHOSPHATE Inactive Advance Directives Directive Description [...] Value Unit Range Description blood pressure, diastolic 85 mm[Hg] BP kennedy [...] 263 10^3/MM^3 10*3/mm3 142-424 Lab Report: Chlamydia/GC APTIMA/30514 - Lab chlamydia DNA probe NOT DETECTED NOT DETECTED Lab Report: Chlamydia/GC APTIMA/12677 - Microbiology Neisseria gonorrhoeae DNA probe NOT [...] 5.0-8.5 Encounters Code Encounter Date Provider Facility CPT-88547 Level 3 Est. Patient 14:55:50 TEACHERS AIDE Jose Zhong MD [facility] CPT-55068 Level 3 Est. Patient 10:21:41 TEACHERS AIDE Arie mcqueen MD [facility] CPT-01692 Level 3 Est. Patient 11:35:15 TEACHERS AIDE Arie mcqueen MD [facility] CPT-00452 Level 3 Est. Patient 15:40:28 CDT [facility] CPT-83267 Level 3 Est. Patient 16:40:36 CDT Arie mcqueen MD [facility] CPT-52090 Level 4 Est. Patient 15:29:22 TEACHERS AIDE Arie mcqueen MD [facility] CPT-94993 Level 3 Est. Patient 15:18:16 TEACHERS AIDE Jono black [facility] CPT-71913 Level 4 Est. Patient 12:08:40 TEACHERS AIDE [facility] CPT-89125 Level 3 Est. Patient 09:24:[address] [facility] CPT-46953 Level 3 Est. Patient 09:12:56 CDT Arie mcqueen MD [facility] CPT-35232 Level 3 Est. Patient 16:40:54 CDT Jose Zhong MD [facility] CPT-68621 Level 2 Est. Patient 13:01:13 CDT [facility] CPT-15783 Level 3 Est. Patient 11:55:30 TEACHERS AIDE Jono black [facility] CPT-01493 Level 3 Est. Patient 09:52:36 TEACHERS AIDE Brii Are ll [facility] CPT-74678 Level 3 Est. Patient 16:25:33 TEACHERS AIDE Rich Rosales MD [facility] CPT-75224 Level 3 Est. Patient 20:33:55 CDT Arie mcqueen MD [facility] CPT-13619 Level 3 Est. Patient 14:18:20 CDT Rich Rosales MD [facility] CPT-15958 Level 4 Est. Patient 09:34:31 CDT Arie mcqueen MD [facility] CPT-20373 Level 3 Est. Patient 09:08:55 TEACHERS AIDE Liliana vincent MD [facility] CPT-15870 Level 3 Est. Patient 16:44:07 TEACHERS AIDE Arie mcqueen MD [facility] CPT-02458 Level 3 Est. Patient 10:44:27 CDT Arie mcqueen MD [facility] CPT-12944 Level 3 Est. Patient 08:55:41 CDT Jose Zhong MD [facility] CPT-82929 Level 3 Est. Patient 18:37:31 CDT Liliana vincent MD [facility] CPT-04930 Level 3 Est. Patient 14:28:23 CDT Abelardo HERNANDEZ [facility] CPT-40630 Level 3 Est. Patient 15:18:13 TEACHERS AIDE Arie mcqueen MD [facility] CPT-78969 Level 3 Est. Patient 10:11:29 TEACHERS AIDE Arie mcqueen MD [facility] CPT-29492 Level 3 Est. Patient 10:55:57 TEACHERS AIDE Jono black DO [facility] CPT-25515 Level 3 Est. Patient 17:29:05 CDT Arie mcqueen MD [facility] Procedures Code Procedure Name Date Entry Date Standard Desc ription CPT-10789 Nexplanon Removal 15:40:28 CDT CPT-54754 Sono transvag pelvis non OB uterus ovari es cervix - XRAY USE ONLY 08:58:14 TEACHERS AIDE CPT-44608 UA w micro - LAB USE ONLY 16:04:56 TEACHERS AIDE 2015 CPT-75755 Wet Prep/GEN - LAB USE ONLY 16:04:56 TEACHERS AIDE 20 08/10/29 CPT-42107 First Vx - Ix admin via ID I M or jet injects without counseling by physician 16:57:10 CDT CPT-58592 Fluzone Preservative Free Intramuscular Suspension 16:57:10 CDT CPT-J0696 Rocephin 1000 mg (Ceftriaxone) 11:49:23 CDT CPT-J1040 Depo Medrol 80 mg (Methyl Prednisolone A cetate) 11:49:23 CDT CPT-J1100 Decadron 8mg (Dexamethasone) 11:49:23 CDT 2 CPT-99681 Abx/Therapy Injection 11:49:23 CDT CPT-56128 Abx/Therapy Injection 11:49:23 CDT CPT-89570 Abd compl w upright 09:07:26 TEACHERS AIDE CPT-76357 Ear Wash 16:12:47 TEACHERS AIDE CPT-OV Office Visit 11:12:01 CDT CPT-OV Office Visit 15:30:23 CDT CPT-70981 Sono pelvis non OB uterus ovaries cervix 15:50:44 CDT CPT-88809 Hand comp min 3V 16:42:32 CDT CPT-14180 Abd compl w upright 12:17:01 CDT CPT-06129 Nexplanon Placement 15:07:39 TEACHERS AIDE CPT-44980 Removal of IUD 15:07:39 TEACHERS AIDE CPT-49620 TB Tubersol 12:09:32 CDT CPT-33267 TB Tubersol 13:55:43 CDT
--- OUTSIDE RECORDS SUMMARY | 2020-03-03 07:26 | XMS REPORT | Clinical Summary ---
Author Author Admin, Diamante Marcelo Organization [facility] Address Unknown Phone Unavailable Allergies, Adverse Reactions, Alerts Allergy Name Reaction Description Start Date Severity Status Pr ovider No Known Allergies Oxana Souza LPN Conditions or Problems Problem Name Problem Code [...] 564.00 Active Myrna Roberto MD Constipation, unspecified FH BREAST CANCER ICD-V16.3 Inactive Jose Marcelo [...] Jose monreal MD Diarrhea ICD-787.91 Inactive Jose Sin D Thumb pain, right ICD-729.5 Inactive Jose pelayo MD Sinusitis, acute ICD-461.9 Inactive Liliana cheema MD PhD Fever ICD-780.60 Inactive Liliana Estrada MD PhD 20 08/12/16 Symptom, cough ICD-786.2 Inactive Liliana Estrada MD PhD Vaginal discharge ICD-623.5 Inactive Liliana lares MD PhD Medication List Medication Instructions Start Date Stop Date Generic Name ND Status Provider Patient Instruction MACROBID 100 MG CAP 1 cap by mouth twice daily NITROFURANTOIN MONOHYD MACRO 29342134122 Active Myrna Roberto MD Active PROMETHAZINE HCL 25 MG TABS 1 four times a day as needed for vomiting PROMETHAZINE HCL 84552567841 No Longer Active Myrna Roberto MD Active BACTRIM DS 800-160 MG TABS 1 twice a day SULFAMETHOXAZOLE-TRIMETHOPRIM 87499381898 No Longer Active Myrna Roberto MD Active VICKS DAYQUIL SEVERE COLD/FLU TABS 1 tab every 6 hours prn 12/10 [id number] TABS 66420192372 No Longer Active Myrna leigh MD Active GUAIFENESIN-CODEINE 100-10 MG/5ML ORAL SYRP 2 tsp every 6 hours prn GUAIFENESIN-CODEINE 98403970248 No Longer Active Myrna Roberto MD Active NAPROXEN 500 MG TAB one tab PO BID NAPROXEN 332 24436222 No Longer Active Myrna Roberto MD Active LOMOTIL 2.5-0.025 MG TABS 1 to 2 four times a day as needed for diarrhea DIPHENOXYLATE-ATROPINE 91638573341 Active Rich mcintosh MD Active AUGMENTIN 875-125 MG TAB 1 tab by mouth twice daily with food 08/12/16 AMOXICILLIN-POT CLAVULANATE 14357834294 No Longer Active Liliana Estrada MD PhD Active CYCLOBENZAPRINE HCL 10 MG TABS 1/2 - 1 tablet by mouth three times daily as needed for muscle spasm/pain CYCLOBENZAPRINE HCL 07651 498143 Active Liliana Estrada MD PhD Active AMOXICILLIN 500 MG CAP 1 tab by mouth 3 times daily 08/12/16 AMOXICILLIN 79779038957 No Longer Active Liliana Estrada MD PhD Acti ve TESSALON PERLES 100 MG CAP 1 tablet by mouth 3 times daily 11/01 BENZONATATE 82100495833 No Longer Active Liliana Estrada MD PhD Active FLAGYL 500 MG TAB 1 tablet by mouth two times daily 07/11/29 METRONIDAZOLE 73327170761 No Longer Active Nilam Weber Active ZITHROMAX 250 MG TAB 2 po today, then 1 po q days 2-5 AZITHROMYCIN 68950548839 No Longer Active Arie Casper MD Acti ve VITAMINS 0.8 MG TABS take 1 tab po qday 08/08 [id number] 59193924961 No Longer Active Arie Casper MD Active IBUPROFEN 800 MG TABS take one po Q 8 hours IBU PROFEN 81772646738 No Longer Active Arie Casper MD Active [facility] TUSSIN COUGH/COLD CF 5-10-100 MG/5ML LIQD 2 teaspoons ev eliud 4 hours [id number] 89475476739 No Longer Active Blaine Casper MD Active COMTREX COLD/COUGH DAY/NITE MS 5-2-10-325 MG MISC 2 caps deja ry 4 hours [id number] 61198342091 No Longer Active Da aleksandra Casper MD Active CHLORASEPTIC MAX SORE THROAT 15-10 MG LOZG 1 every 2 hours prn 2 BENZOCAINE-MENTHOL 28966042735 No Longer Active rAie Marcelo Active PREDNISONE 20 MG TAB 2 tabs daily for 3 days, 1 t ab daily for 3 days, 1/2 tab daily for 2 days PREDNISONE 27076903821 No Longer Active Jose Zhong MD Active AZITHROMYCIN 250 MG TABS 2 po qd x 1 day, then 1 po qd x 4 days AZITHROMYCIN 02538928726 No Longer Active Jose Zhong MD Active ZOFRAN ODT 4 MG TBDP 1 po q6hr PRN Nausea ONDAN SETRON 22702381311 No Longer Active Rich Rosales MD Active ZOFRAN 4 MG TABS 1 tablet every 4 hours ONDANSE JERRELL HCL 81027666910 No Longer Active Rich Rosales MD Active MUCINEX 600 MG [id number] Take 1-2 tablets every 12 hours GUAIFENESIN 02794371793 No Longer Active Rich Rosales MD Activ e BACTRIM 400-80 MG TABS take one po BID SULFAMETHOXAZOLE-TRIMETHOPRIM 38279908018 No Longer Active Abelardo HERNANDEZ Active AZITHROMYCIN 500 MG TABS 1 PO q day x 6 days AZ ITHROMYCIN 63781331542 No Longer Active Tin HERNANDEZ Active ZITHROMAX 250 MG TAB 2 po today, then 1 po q days 2-5 AZITHROMYCIN 29443018810 No Longer Active Arie Casper MD Acti ve ZITHROMAX 250 MG TAB 2 po today, then 1 po q days 2-5 AZITHROMYCIN 60149351572 No Longer Active Arie Casper MD Acti ve AMOXICILLIN 500 MG CAP 1 tab by mouth 3 times daily 09/23/20 AMOXICILLIN 51762266713 No Longer Active Arie Casper MD Acti ve BACTRIM DS 800-160 MG TAB 1 tab by mouth twice daily 2 TRIMETHOPRIM-SULFAMETHOXAZOLE 22332138147 No Longer Active Arie Casper MD Active AMOXICILLIN 500 MG TABS take 1 tab po TID AMOXI CILLIN 40072831342 No Longer Active Arie Casper MD Active BACTRIM DS 800-160 MG TAB 1 tab by mouth twice daily 2 BACTRIM DS 800-160 MG TAB TRIMETHOPRIM-SULFAMETHOXAZOLE Inac tive MUCINEX 600 MG [id number] Take 1-2 tablets every 12 hours MUCINEX 600 MG [id number] GUAIFENESIN Inactive ZOFRAN 4 MG TABS 1 tablet every 4 hours ZOFRAN 4 MG TABS 061210 ONDANSETRON HCL Inactive ZOFRAN ODT 4 MG TBDP 1 po q6hr PRN Nausea ZOFRAN ODT 4 MG TBDP 671996 ONDANSETRON Inactive CHLORASEPTIC MAX SORE THROAT 15-10 MG LOZG 1 every 2 hours prn 2 /04/30 CHLORASEPTIC MAX SORE THROAT 15-10 MG LOZG BENZO ARINA-MENTHOL Inactive COMTREX COLD/COUGH DAY/NITE MS 5-2-10-325 MG MISC 2 caps deja ry 4 hours COMTREX COLD/COUGH DAY/NITE MS 5-2-10-325 MG MIS C [id number] Inactive [facility] TUSSIN COUGH/COLD CF 5-10-100 MG/5ML LIQD 2 teaspoons ev eliud 4 hours [facility] TUSSIN COUGH/COLD CF 5-10-100 MG/5ML LIQD [id number] Inactive IBUPROFEN 800 MG TABS take one po Q 8 hours IBUPROFEN 800 MG TABS 349876 IBUPROFEN Inactive VITAMINS 0.8 MG TABS take 1 tab po qday 08/08 VITAMINS 0.8 MG TABS [id number] Inactive TESSALON PERLES 100 MG CAP 1 tablet by mouth 3 times daily 11/01 TESSALON PERLES 100 MG CAP 687622 BENZONATATE Inact zaid AMOXICILLIN 500 MG CAP 1 tab by mouth 3 times daily 08/12/16 AMOXICILLIN 500 MG CAP 771701 AMOXICILLIN Inactive GUAIFENESIN-CODEINE 100-10 MG/5ML ORAL SYRP 2 tsp every 6 hours prn GUAIFENESIN-CODEINE 100-10 MG/5ML ORAL SYRP 702805 GUAIFENESIN-CODEINE Inactive VICKS DAYQUIL SEVERE COLD/FLU TABS 1 tab every 6 hours prn 12/10 VICKS DAYQUIL SEVERE COLD/FLU TABS PHENYLEPHRINE -DM-GG-APAP TABS Inactive BACTRIM DS 800-160 MG TABS 1 twice a day BACTRIM DS 800- 160 MG TABS SULFAMETHOXAZOLE-TRIMETHOPRIM Inactive PROMETHAZINE HCL 25 MG TABS 1 four times a day as needed for vomiting PROMETHAZINE HCL 25 MG TABS 339049 PROMETHAZINE HCL Inactive AMOXICILLIN 500 MG TABS take 1 tab po TID AMOXICILLIN 500 MG TABS 526630 AMOXICILLIN Inactive AMOXICILLIN 500 MG CAP 1 tab by mouth 3 times daily 09/23/20 AMOXICILLIN 500 MG CAP 931244 AMOXICILLIN Inactive ZITHROMAX 250 MG TAB 2 po today, then 1 po q days 2-5 ZITHROMAX 250 MG TAB 7342181 AZITHROMYCIN Inactive ZITHROMAX 250 MG TAB 2 po today, then 1 po q days 2-5 ZITHROMAX 250 MG TAB 2025157 AZITHROMYCIN Inactive AZITHROMYCIN 500 MG TABS 1 PO q day x 6 days 3 AZITHROMYCIN 500 MG TABS 4625206 AZITHROMYCIN Inactive BACTRIM 400-80 MG TABS take one po BID BA CTRIM 400-80 MG TABS 249398 SULFAMETHOXAZOLE-TRIMETHOPRIM Inactive AZITHROMYCIN 250 MG TABS 2 po qd x 1 day, then 1 po qd x 4 days AZITHROMYCIN 250 MG TABS 3632836 AZITHROMYCIN Inactiv e PREDNISONE 20 MG TAB 2 tabs daily for 3 days, 1 t ab daily for 3 days, 1/2 tab daily for 2 days PREDNISONE 20 MG TAB 695447 PREDNISON E Inactive ZITHROMAX 250 MG TAB 2 po today, then 1 po q days 2-5 ZITHROMAX 250 MG TAB 0416042 AZITHROMYCIN Inactive FLAGYL 500 MG TAB 1 tablet by mouth two times daily 07/11/29 FLAGYL 500 MG TAB 789533 METRONIDAZOLE Inactive AUGMENTIN 875-125 MG TAB 1 tab by mouth twice daily with food 08/12/16 AUGMENTIN 875-125 MG TAB 980243 AMOXICILLIN-POT CLAVULA ANGELO Inactive NAPROXEN 500 MG TAB one tab PO BID NAPROXEN 500 MG TAB 153236 NAPROXEN Inactive Advance Directives Directive Description Start Date [...] Range Description blood pressure, diastolic - 8462-4 78 mm[Hg] [...] - 3141-9 167 [lb_av] Weigh t Measured Diagnostic Results Date Name Value Unit Range Description Immunizations: TB Skin Test - Challenge tests PPD results in mm 00 mm PPD results in mm 0 mm Lab [...] 214 10^3/MM^3 10*3/mm3 142-424 Lab Report: Chlamydia/GC APTIMA/32491 - Lab chlamydia DNA probe NOT DETECTED NOT DETECTED Lab Report: Chlamydia/GC APTIMA/79493 - Microbiology Neisseria gonorrhoeae DNA probe NOT DETECTED NO T DETECTED Lab Report: HIV-1/2 Agn/Darcy/84699, HEPAT ITIS PANEL, ACUTE W/REFLE - Chemistry hepatitis B surface antigen NON-REACTIVE NON-RE ACTIVE Lab Report: LILIA INFLUENZA A/B - [place] rapid flu test Negative Negative;Positive Lab Report: UADIP W/MICRO, AUTO - Chemis try protein, total urine random Negative mg/dL Negative protein, total urine random Negative mg/dL Negative RBC, urine, dipstick 2+ Negative RBC, urine, dipstick Negative Negative Lab Report: UADIP W/MICRO, AUTO - Urinal ysis urobilinogen, urine, semiquantitative (dipstick) 0.2 Normal urobilinogen, urine, semiquantitative (dipstick) 0.2 Normal leukocyte esterase, urine, by dipstick Negative Negative nitrite, urine, semiquantitative Negative Neg ative glucose, urine, semiquantitative Negative Neg ative ketones, urine, by test strip Negative Negati ve bilirubin, urine Negative Negative urine color Yellow Colorless;Lightyellow;St raw;Yellow appearance, urine Clear Clear specific gravity, urine >=1.030 1.000-1.030 pH, urine, semiquantitative 5.5 5.0-8.5 glucose, urine, semiquantitative Negative Neg ative ketones, urine, by test strip Negative Negati ve bilirubin, urine Negative Negative leukocyte esterase, urine, by dipstick Negative Negative nitrite, urine, semiquantitative Negative Neg ative urine color Yellow Colorless;Lightyellow;St raw;Yellow appearance, urine Clear Clear specific gravity, urine 1.025 1.000-1.030 pH, urine, semiquantitative 5.5 5.0-8.5 Encounters Code Encounter Date Provider Facility CPT-69713 Level 3 Est. Patient 14:18:20 CDT Rich Rosales MD [facility] CPT-01212 Level 4 Est. Patient 09:34:31 CDT Arie mcqueen MD [facility] CPT-90208 Level 3 Est. Patient 09:08:55 CERTIFIED CODING SPECIALIST Liliana vincent MD PhD [facility] CPT-60422 Level 3 Est. Patient 16:44:07 CERTIFIED CODING SPECIALIST Arie mcqueen MD [facility] CPT-64366 Level 3 Est. Patient 10:44:27 CDT Arie mcqueen MD [facility] CPT-07268 Level 3 Est. Patient 08:55:41 CDT Jose Zhong MD [facility] CPT-52805 Level 3 Est. Patient 18:37:31 CDT Liliana vincent MD PhD [facility] CPT-54685 Level 3 Est. Patient 14:28:23 CDT Abelardo HERNANDEZ [facility] CPT-70089 Level 3 Est. Patient 15:18:13 CERTIFIED CODING SPECIALIST Arie mcqueen MD [facility] CPT-63609 Level 3 Est. Patient 10:11:29 CERTIFIED CODING SPECIALIST rAie mcqueen MD [facility] CPT-15789 Level 3 Est. Patient 10:55:57 CERTIFIED CODING SPECIALIST Jono blakc DO [facility] CPT-44831 Level 3 Est. Patient 17:29:05 CDT Arie mcqueen MD [facility] Procedures Code Procedure Name Date Entry Date Standard Desc ription CPT-OV Office Visit 11:12:01 CDT CPT-OV Office Visit 15:30:23 CDT CPT-21752 Sono pelvis non OB uterus ovaries cervix 15:50:44 CDT CPT-47053 Hand comp min 3V 16:42:32 CDT CPT-49546 Abd compl w upright 12:17:01 CDT CPT-72232 Nexplanon Placement 15:07:39 CERTIFIED CODING SPECIALIST CPT-55315 Removal of IUD 15:07:39 CERTIFIED CODING SPECIALIST CPT-69506 TB Tubersol 12:09:32 CDT CPT-79427 TB Tubersol 13:55:43 CDT
--- OUTSIDE RECORDS SUMMARY | 2020-03-03 07:27 | XMS REPORT | Clinical Summary ---
Author Author Admin, Diamante Marcelo Organization [facility] Address Unknown Phone Unavailable Allergies, Adverse [...] site Abdominal pain 789.00 Active Brii Larson DECK OFFICER Abdominal pain, unspecified site Diarrhea 787.91 Resolved [...] cute pharyngitis Nausea 787.02 Active Brii Larson DECK OFFICER Nausea alone URI 465.9 Active Jono Gagnon DO Acu te upper respiratory infections of unspecified site Allergic rhinitis 477.9 Active Brii Larson A PRN Allergic rhinitis, cause unspecified Abdominal pain, right lower quadrant 789.03 Active Jose Zhong MD Abdominal pain, right lower quadrant FH BREAST CANCER ICD-V16.3 Inactive Jose Marcelo FH COLON CANCER ICD-V16.0 Inactive Jose Zhong MD FH DIABETES ICD-V18.0 Inactive Jose Zhong MD 201 01/29/08 ACUTE FRONTAL SINUSITIS ICD-461.1 Inactive Meghan Estrada MD PhD CYSTITIS ICD-595.9 Inactive Liliana Estrada MD Ph D SINUSITIS ICD-473.9 Inactive Liliana Esrtada MD Ph D IUD removal ICD-V25.42 Inactive [...] 1 po q a.m. PANTOPRAZO LE SODIUM 32559569640 Active Jose Zhong MD Active PREDNISONE 20 MG TAB 2 tabs daily for 3 days, 1 t ab daily for 3 days, 1/2 tab daily for 2 days PREDNISONE 29294274443 No Longer Active Brii Larson APRN Active PREDNISONE 20 MG TAB 1 tablet twice daily for 2 d ays, then 1 tablet once daily for 2 days PREDNISONE 28619455663 No Longer Active Brii Larson APRN Active FLONASE 50 MCG/ACT SUSP 1 spray each nostril twice d aily for allergies and runny nose until gone FLUTICASONE PROPIONATE Active Jono Gagnon DO Active PROMETHAZINE HCL 12.5 MG TABS 1 tablet by mouth every 6 hours as needed for nausea/vomiting PROMETHAZINE HCL 85463069628 No Longe r Active Jono Gagnon DO Active CITRATE OF MAGNESIA ORAL SOLN 1 bottle today for constipation 20 07/10/15 MAGNESIUM CITRATE 52057480534 No Longer Active Jono Gagnon DO Active ZOFRAN 4 MG ORAL TABS 1 TAB PO Q 6 HRS PRN NAUSEA 2014 ONDANSETRON HCL 16872360169 No Longer Active Brii Larson APRN A ctive LOMOTIL 2.5-0.025 MG TAB 1 to 2 four times a day as needed f or diarrhea DIPHENOXYLATE-ATROPINE 60788869630 No Longer Active January Larson APRN Active AMOXICILLIN 500 MG TABS 2 tabs twice a day for 10 days AMOXICILLIN 15649326401 No Longer Active Brii Larson APRN Acti ve NEXPLANON IMPL ETONOGESTREL IMPL 46012199292 Active Rich Rosales MD Active CYCLOBENZAPRINE HCL 10 MG TABS 1/2 - 1 tablet by mouth three times daily as needed for muscle spasm/pain CYCLOBENZAPRINE HCL 92546002118 No Longer Active Arie Casper MD Active LOMOTIL 2.5-0.025 MG TABS 1 to 2 four times a day as needed for diarrhea DIPHENOXYLATE-ATROPINE 30364217537 No Longer Active Fozia Casper MD Active MACROBID 100 MG CAP 1 cap by mouth twice daily NITROFURANTOIN MONOHYD MACRO 05216209873 No Longer Active Arie Casper MD Active ZYRTEC ALLERGY 10 MG CAPS 1 po qd CETIRIZINE HCL 11713681471 No Longer Active Arie Casper MD Active AZITHROMYCIN 250 MG TABS 2 po qd x 1 day, then 1 po qd x 4 days AZITHROMYCIN 92024569034 No Longer Active Jillina Franaomi CABRERA Active PREDNISONE 20 MG TAB 2 tabs daily for 3 days, 1 t ab daily for 3 days, 1/2 tab daily for 2 days PREDNISONE 87149163519 No Longer Active Jillina Frazell RICK Active PROMETHAZINE HCL 25 MG TABS 1 four times a day as needed for vomiting PROMETHAZINE HCL 36391060938 No Longer Active Myrna Roberto MD Active BACTRIM DS 800-160 MG TABS 1 twice a day SULFAMETHOXAZOLE-TRIMETHOPRIM 10328049329 No Longer Active Myrna Roberto MD Active VICKS DAYQUIL SEVERE COLD/FLU TABS 1 tab every 6 hours prn 12/10 [id number] TABS 05894371388 No Longer Active Myrna leigh MD Active GUAIFENESIN-CODEINE 100-10 MG/5ML ORAL SYRP 2 tsp every 6 hours prn GUAIFENESIN-CODEINE 43145679432 No Longer Active Myrna Roberto MD Active NAPROXEN 500 MG TAB one tab PO BID NAPROXEN 332 80457812 No Longer Active Myrna Roberto MD Active AUGMENTIN 875-125 MG TAB 1 tab by mouth twice daily with food 20 08/12/16 AMOXICILLIN-POT CLAVULANATE 12914187091 No Longer Active Liliana Estrada MD PhD Active AMOXICILLIN 500 MG CAP 1 tab by mouth 3 times daily 08/12/16 AMOXICILLIN 82898944237 No Longer Active Liliana Estrada MD PhD Acti ve TESSALON PERLES 100 MG CAP 1 tablet by mouth 3 times daily 11/01 BENZONATATE 42887785455 No Longer Active Liliana Estrada MD PhD Active FLAGYL 500 MG TAB 1 tablet by mouth two times daily 07/11/29 METRONIDAZOLE 25568071350 No Longer Active Nilam Weber Active ZITHROMAX 250 MG TAB 2 po today, then 1 po q days 2-5 AZITHROMYCIN 01113572943 No Longer Active Arie Casper MD Acti ve VITAMINS 0.8 MG TABS take 1 tab po qday 08/08 [id number] 61401436055 No Longer Active Arie Casper MD Active IBUPROFEN 800 MG TABS take one po Q 8 hours IBU PROFEN 72304985014 No Longer Active Arie Casper MD Active [facility] TUSSIN COUGH/COLD CF 5-10-100 MG/5ML LIQD 2 teaspoons ev eliud 4 hours [id number] 36921820359 No Longer Active Blaine Casper MD Active COMTREX COLD/COUGH DAY/NITE MS 5-2-10-325 MG MISC 2 caps deja ry 4 hours [id number] 25158636148 No Longer Active Da aleksandra Casper MD Active CHLORASEPTIC MAX SORE THROAT 15-10 MG LOZG 1 every 2 hours prn 2 014/04/30 BENZOCAINE-MENTHOL 68456311376 No Longer Active Arie Marcelo Active PREDNISONE 20 MG TAB 2 tabs daily for 3 days, 1 t ab daily for 3 days, 1/2 tab daily for 2 days PREDNISONE 97146351241 No Longer Active Jose Zhong MD Active AZITHROMYCIN 250 MG TABS 2 po qd x 1 day, then 1 po qd x 4 days AZITHROMYCIN 14677478737 No Longer Active Jose Zhong MD Active ZOFRAN ODT 4 MG TBDP 1 po q6hr PRN Nausea ONDAN SETRON 29779493943 No Longer Active Rich Rosales MD Active ZOFRAN 4 MG TABS 1 tablet every 4 hours ONDANSE JERRELL HCL 93955591224 No Longer Active Rich Rosales MD Active MUCINEX 600 MG [id number] Take 1-2 tablets every 12 hours GUAIFENESIN 38171175128 No Longer Active Rich Rosales MD Activ e BACTRIM 400-80 MG TABS take one po BID SULFAMETHOXAZOLE-TRIMETHOPRIM 42960513531 No Longer Active Abelardo HERNANDEZ Active AZITHROMYCIN 500 MG TABS 1 PO q day x 6 days AZ ITHROMYCIN 36599225381 No Longer Active Tin HERNANDEZ Active ZITHROMAX 250 MG TAB 2 po today, then 1 po q days 2-5 AZITHROMYCIN 18412534820 No Longer Active Arie Casper MD Acti ve ZITHROMAX 250 MG TAB 2 po today, then 1 po q days 2-5 AZITHROMYCIN 74496853941 No Longer Active Arie Casper MD Acti ve AMOXICILLIN 500 MG CAP 1 tab by mouth 3 times daily 20 09/23/20 AMOXICILLIN 93451141645 No Longer Active Arie Casper MD Acti ve BACTRIM DS 800-160 MG TAB 1 tab by mouth twice daily 2 TRIMETHOPRIM-SULFAMETHOXAZOLE 76369103497 No Longer Active Arie Casper MD Active AMOXICILLIN 500 MG TABS take 1 tab po TID AMOXI CILLIN 66952162116 No Longer Active Arie Casper MD Active BACTRIM DS 800-160 MG TAB 1 tab by mouth twice daily 2 BACTRIM DS 800-160 MG TAB 487065 TRIMETHOPRIM-SULFAMETHOXAZOLE Inac tive MUCINEX 600 MG [id number] Take 1-2 tablets every 12 hours MUCINEX 600 MG [id number]-[id number] GUAIFENESIN Inactive ZOFRAN 4 MG TABS 1 tablet every 4 hours ZOFRAN 4 MG TABS 703772 ONDANSETRON HCL Inactive ZOFRAN ODT 4 MG TBDP 1 po q6hr PRN Nausea ZOFRAN ODT 4 MG TBDP 677909 ONDANSETRON Inactive CHLORASEPTIC MAX SORE THROAT 15-10 MG LOZG 1 every 2 hours prn 2 CHLORASEPTIC MAX SORE THROAT 15-10 MG LOZG BENZO ARINA-MENTHOL Inactive COMTREX COLD/COUGH DAY/NITE MS 5-2-10-325 MG MISC 2 caps deja ry 4 hours COMTREX COLD/COUGH DAY/NITE MS 5-2-10-325 MG MIS C PIRANEOAI-YGB-LQ-APAP Inactive [facility] TUSSIN COUGH/COLD CF 5-10-100 MG/5ML LIQD 2 teaspoons ev eliud 4 hours [facility] TUSSIN COUGH/COLD CF 5-10-100 MG/5ML LIQD [id number]-FX-LK Inactive IBUPROFEN 800 MG TABS take one po Q 8 hours IBUPROFEN 800 MG TABS IBUPROFEN Inactive VITAMINS 0.8 MG TABS take 1 tab po qday 08/08 VITAMINS 0.8 MG TABS [id number] Inactive TESSALON PERLES 100 MG CAP 1 tablet by mouth 3 times daily 11/01 TESSALON PERLES 100 MG CAP 708876 BENZONATATE Inact zaid AMOXICILLIN 500 MG CAP 1 tab by mouth 3 times daily 08/12/16 AMOXICILLIN 500 MG CAP 207261 AMOXICILLIN Inactive GUAIFENESIN-CODEINE 100-10 MG/5ML ORAL SYRP 2 tsp every 6 hours prn GUAIFENESIN-CODEINE 100-10 MG/5ML ORAL SYRP 252471 GUAIFENESIN-CODEINE Inactive VICKS DAYQUIL SEVERE COLD/FLU TABS 1 tab every 6 hours prn 12/10 VICKS DAYQUIL SEVERE COLD/FLU TABS PHENYLEPHRINE -DM-GG-APAP TABS Inactive BACTRIM DS 800-160 MG TABS 1 twice a day BACTRIM DS 800- 160 MG TABS 897744 SULFAMETHOXAZOLE-TRIMETHOPRIM Inactive PROMETHAZINE HCL 25 MG TABS 1 four times a day as needed for vomiting PROMETHAZINE HCL 25 MG TABS 632674 PROMETHAZINE HCL Inactive ZYRTEC ALLERGY 10 MG CAPS 1 po qd ZY RTEC ALLERGY 10 MG CAPS CETIRIZINE HCL Inactive MACROBID 100 MG CAP 1 cap by mouth twice daily MACROBID 100 MG CAP 7829054 NITROFURANTOIN MONOHYD MACRO Inactive LOMOTIL 2.5-0.025 MG TABS 1 to 2 four times a day as needed for diarrhea LOMOTIL 2.5-0.025 MG TABS 6084348 DIPHENOXYLATE-A TROPINE Inactive CYCLOBENZAPRINE HCL 10 MG TABS 1/2 - 1 tablet by mouth three times daily as needed for muscle spasm/pain CYCLOBENZAP RINE HCL 10 MG TABS 580568 CYCLOBENZAPRINE HCL Inactive AMOXICILLIN 500 MG TABS 2 tabs twice a day for 10 days AMOXICILLIN 500 MG TABS 051203 AMOXICILLIN Inactive LOMOTIL 2.5-0.025 MG TAB 1 to 2 four times a day as needed f or diarrhea LOMOTIL 2.5-0.025 MG TAB 1748226 DIPHENOXYLATE-AT ROPINE Inactive ZOFRAN 4 MG ORAL TABS 1 TAB PO Q 6 HRS PRN NAUSEA 2014 ZOFRAN 4 MG ORAL TABS 828686 ONDANSETRON HCL Inactive CITRATE OF MAGNESIA ORAL SOLN 1 bottle today for constipation 20 07/10/15 CITRATE OF MAGNESIA ORAL SOLN 8955054 MAGNESIUM CITRATE Inactive PROMETHAZINE HCL 12.5 MG TABS 1 tablet by mouth every 6 hours as needed for nausea/vomiting PROMETHAZINE HCL 12.5 MG TABS 670174 PROMETHAZINE HCL Inactive PREDNISONE 20 MG TAB 1 tablet twice daily for 2 d ays, then 1 tablet once daily for 2 days PREDNISONE 20 MG TAB 889031 PREDNISONE Inac tive AMOXICILLIN 500 MG TABS take 1 tab po TID AMOXICILLIN 500 MG TABS 469755 AMOXICILLIN Inactive AMOXICILLIN 500 MG CAP 1 tab by mouth 3 times daily 09/23/20 AMOXICILLIN 500 MG CAP 901366 AMOXICILLIN Inactive ZITHROMAX 250 MG TAB 2 po today, then 1 po q days 2-5 ZITHROMAX 250 MG TAB 0350399 AZITHROMYCIN Inactive ZITHROMAX 250 MG TAB 2 po today, then 1 po q days 2-5 ZITHROMAX 250 MG TAB 7640615 AZITHROMYCIN Inactive AZITHROMYCIN 500 MG TABS 1 PO q day x 6 days 3 AZITHROMYCIN 500 MG TABS 7553990 AZITHROMYCIN Inactive BACTRIM 400-80 MG TABS take one po BID BA CTRIM 400-80 MG TABS 506042 SULFAMETHOXAZOLE-TRIMETHOPRIM Inactive AZITHROMYCIN 250 MG TABS 2 po qd x 1 day, then 1 po qd x 4 days AZITHROMYCIN 250 MG TABS 0488703 AZITHROMYCIN Inactiv e PREDNISONE 20 MG TAB 2 tabs daily for 3 days, 1 t ab daily for 3 days, 1/2 tab daily for 2 days PREDNISONE 20 MG TAB 166675 PREDNISON E Inactive ZITHROMAX 250 MG TAB 2 po today, then 1 po q days 2-5 ZITHROMAX 250 MG TAB 0296387 AZITHROMYCIN Inactive FLAGYL 500 MG TAB 1 tablet by mouth two times daily 07/11/29 FLAGYL 500 MG TAB 129444 METRONIDAZOLE Inactive AUGMENTIN 875-125 MG TAB 1 tab by mouth twice daily with food 20 08/12/16 AUGMENTIN 875-125 MG TAB 331997 AMOXICILLIN-POT CLAVULA ANGELO Inactive NAPROXEN 500 MG TAB one tab PO BID NAPROXEN 500 MG TAB 408030 NAPROXEN Inactive PREDNISONE 20 MG TAB 2 tabs daily for 3 days, 1 t ab daily for 3 days, 1/2 tab daily for 2 days PREDNISONE 20 MG TAB 540697 PREDNISON E Inactive AZITHROMYCIN 250 MG TABS 2 po qd x 1 day, then 1 po qd x 4 days AZITHROMYCIN 250 MG TABS 9859027 AZITHROMYCIN Inactiv e PREDNISONE 20 MG TAB 2 tabs daily for 3 days, 1 t ab daily for 3 days, 1/2 tab daily for 2 days PREDNISONE 20 MG TAB 897004 PREDNISON E Inactive Advance Directives Directive Description [...] Panel - Chemistry sodium, serum 136 mmol/L 808-506 1496/04/26 carbon dioxide, venous blood 29.9 mmol/L 21.0-32 [...] 284 10^3/MM^3 10*3/mm3 142-424 Lab Report: Chlamydia/GC APTIMA/[id number] - Lab chlamydia DNA probe NOT DETECTED NOT DETECTED Lab Report: Chlamydia/GC APTIMA/[id number] - Microbiology Neisseria gonorrhoeae DNA probe NOT DETECTED NO T DETECTED Lab Report: Comp. Metabolic Panel - Chem istry sodium, serum 139 mmol/L 045-533 6376/12/15 carbon dioxide, venous blood 30.2 mmol/L 21.0-32 .0 potassium, serum 3.4 mmol/L 3.5-5.2 chloride, serum 101 mmol/L 98-107 blood glucose 92 mg/dL 65-110 urea nitrogen, blood 5 mg/dL 7-18 creatinine, serum 0.81 mg/dL 0.55-1.30 alanine aminotransferase (SGPT), serum 20 U/L 12-78 aspartate aminotransferase (SGOT), serum 10 U/L 15-37 calcium, serum 8.4 mg/dL 8.5-10.1 bilirubin, serum, total 0.60 mg/dL 0.00-1.00 Lab Report: HIV-1/2 Agn/Darcy/75511, HEPAT ITIS PANEL, ACUTE W/REFLE - Chemistry [...] pH, urine, semiquantitative 5.5 5.0-8.5 [facility] AUTO - Chemistry protein, [...] Negative Encounters Code Encounter Date Provider Facility CPT-32726 Level 3 Est. Patient 16:40:54 CDT Jose Zhong MD [facility] CPT-15006 Level 2 Est. Patient 13:01:13 CDT [address] [facility] CPT-37427 Level 3 Est. Patient 11:55:30 RANGE MANAGER Jono black DO [facility] CPT-11937 Level 3 Est. Patient 09:52:36 RANGE MANAGER Steve DECK OFFICER [facility] CPT-86193 Level 3 Est. Patient 16:25:33 RANGE MANAGER Rich Rosales MD [facility] CPT-12459 Level 3 Est. Patient 20:33:55 CDT Arie mcqueen MD [facility] CPT-71688 Level 3 Est. Patient 14:18:20 CDT Rich Rosales MD [facility] CPT-40564 Level 4 Est. Patient 09:34:31 CDT Arie mcqueen MD [facility] CPT-22603 Level 3 Est. Patient 09:08:55 RANGE MANAGER Liliana vincent MD PhD [facility]-12547 Level 3 Est. Patient 16:44:07 RANGE MANAGER Arie mcqueen MD [facility] CPT-20275 Level 3 Est. Patient 10:44:27 CDT Arie mcqueen MD [facility] CPT-11234 Level 3 Est. Patient 08:55:41 CDT Jose Zhong MD [facility] CPT-39610 Level 3 Est. Patient 18:37:31 CDT Liliana vincent MD PhD [facility] CPT-09401 Level 3 Est. Patient 14:28:23 CDT Abelardo HERNANDEZ [facility] CPT-99618 Level 3 Est. Patient 15:18:13 RANGE MANAGER Arie mcqueen MD [facility] CPT-93861 Level 3 Est. Patient 10:11:29 RANGE MANAGER Arie mcqueen MD [facility] CPT-92299 Level 3 Est. Patient 10:55:57 RANGE MANAGER Jono black DO [facility] CPT-36240 Level 3 Est. Patient 17:29:05 CDT Arie mcqueen MD [facility] Procedures Code Procedure Name Date Entry Date Standard Desc ription CPT-33125 Abd compl w upright 09:07:26 RANGE MANAGER CPT-49383 Ear Wash 16:12:47 RANGE MANAGER CPT-OV Office Visit 11:12:01 CDT CPT-OV Office Visit 15:30:23 CDT CPT-43066 Sono pelvis non OB uterus ovaries cervix 15:50:44 CDT CPT-22325 Hand comp min 3V 16:42:32 CDT CPT-91635 Abd compl w upright 12:17:01 CDT CPT-98563 Nexplanon Placement 15:07:39 RANGE MANAGER CPT-18001 Removal of IUD 15:07:39 RANGE MANAGER CPT-27990 TB Tubersol 12:09:32 CDT CPT-46167 TB Tubersol 13:55:43 CDT
--- OUTSIDE RECORDS SUMMARY | 2020-03-03 07:27 | XMS REPORT | Clinical Summary ---
Author Author Admin, Diamante Marcelo Organization [facility] Address Unknown Phone Unavailable Allergies, Adverse Reactions, Alerts Allergy Name Reaction Description Start Date Severity Status Pr ovidrosalie SARMIENTOAUDID Severe Active Brii Larson APRN Conditions or [...] Acute sinusitis, unspecified Fever 780.60 Resolved Liliana Etsrada MD PhD Fever, unspecified Symptom, cough 786.2 [...] cute pharyngitis Nausea 787.02 Active Brii Larson JOURNEYMAN PIPEFITTER Nausea alone URI 465.9 Active Jono Gagnon [...] Anxiety with depression 300.4 Active Glenn Larson JOURNEYMAN PIPEFITTER Dysthymic disorder URI 465.9 Active Jono Gagnon DO Acu te upper respiratory infections of unspecified site Vaginal bleeding 623.8 Resolved Jose Zhong MD Other specified noninflammatory disorders of vagina High risk sexual behavior V69.2 Active Arie Casper MD High-risk sexual behavior GERD 530.81 Active Arie Casper MD Esophageal reflux Encounter for surveillance of implantable subdermal contraceptiv e Active Brii Larson JOURNEYMAN PIPEFITTER Vaginal bleeding 623.8 Active Arie Casper MD Other specified noninflammatory disorders of vagina Influenza like illness 487.1 Active Jose Mcwilliams MD Influenza with other respiratory manifestations FH BREAST CANCER ICD-V16.3 Inactive Jose Marcelo [...] Generic Name ND Status Provider Patient Instruction TAMIFLU 75 MG ORAL CAPSULE 1 po BID x 5 days 0 OSELTAMIVIR PHOSPHATE [id number] Active Jose Zhong MD Active CHERATUSSIN AC 100-10 MG/5ML ORAL SYRUP 1 tsp by mouth every 4 hours as needed for cough GUAIFENESIN-CODEINE 54295024522 Active Blaine Casper MD Active ZITHROMAX Z-EMIL 250 MG ORAL TABLET 2 today, then 1 daily for 4 d ays AZITHROMYCIN 73107649262 No Longer Active Arie Casper MD Active PROTONIX 40 MG ORAL TABLET DELAYED RELEASE 1 po q a.m. PANTOPRAZOLE SODIUM 98745376106 No Longer Active Arie Casper MD Active BACTRIM DS 800-160 MG ORAL TABLET 1 tab by mouth twice daily 201 05/02/30 TRIMETHOPRIM-SULFAMETHOXAZOLE 67628513948 No Longer Active R [facility] Active NEXPLANON IMPLANT right arm subcutaneously ETONOGESTREL IMPL 74364134103 No Longer Active Brii Larson APRN Acti ve TUSSIONEX PENNKINETIC ER 10-8 MG/5ML ORAL SUSPENSION E XTENDED RELEASE 5ml po q12hr PRN Cough HYDROCOD POLST-CHLORPHEN POLST 5 3358106955 No Longer Active Brii Larson APRN Active CETIRIZINE HCL 10 MG ORAL TABLET 1 po qd PRN Allergies CETIRIZINE HCL 98791062325 No Longer Active Brii Larson APRN Ac tive PREDNISONE 20 MG ORAL TABLET 2 tabs daily for 3 days, 1 tab daily for 3 days, 1/2 tab daily for 2 days PREDNISONE 03779261968 No Longer Active Arie Casper MD Active LOMOTIL 2.5-0.025 MG ORAL TABLET 1 tab po four times a day as needed for diarrhea DIPHENOXYLATE-ATROPINE 87228153793 No Lo nger Active Arie Casper MD Active ZOLOFT 50 MG ORAL TABLET 1 tablet by mouth daily 12/08 SERTRALINE HCL 51525990440 No Longer Active Arie Casper MD Ac tive NAPROXEN 500 MG ORAL TABLET Take 1 tab BID NAPR OXEN 08611195157 No Longer Active Arie Casper MD Active CEFDINIR 300 MG ORAL CAPSULE 1 po BID x 10 days CEFDINIR 56366746575 No Longer Active Brii Larson APRN Active PREDNISONE 20 MG ORAL TABLET 1 tablet daily for airway inflammat ion PREDNISONE 64620990743 No Longer Active Brii Larson APRN Active CEFDINIR 300 MG ORAL CAPSULE 1 po BID x 10 days CEFDINIR 83818661534 No Longer Active Jono Gagnon DO Active FLONASE 50 MCG/ACT NASAL SUSPENSION 1 spray each nostr il twice daily for allergies and runny nose until gone FLUT ICASONE PROPIONATE 06432518426 No Longer Active Jono Gagnon DO Active ALPRAZOLAM 0.25 MG ORAL TABLET 1 tablet by mouth every 8 hours as needed for stress ALPRAZOLAM 30213799848 No Longer Active Jono Gagnon DO Active ZITHROMAX Z-EMIL 250 MG ORAL TABLET 2 today, then 1 daily for 4 d ays AZITHROMYCIN 62918615187 No Longer Active Arie Casper MD Active PREDNISONE 20 MG ORAL TABLET 2 tabs daily for 3 days, 1 tab daily for 3 days, 1/2 tab daily for 2 days PREDNISONE 16808631501 No Longer Active Brii Larson APRN Active PREDNISONE 20 MG ORAL TABLET 1 tablet twice daily for 2 days, then 1 tablet once daily for 2 days PREDNISONE 43364023779 No Longer Active Brii Larson APRN Active PROMETHAZINE HCL 12.5 MG ORAL TABLET 1 tablet by mouth every 6 hours as needed for nausea/vomiting PROMETHAZINE HCL 37554049525 No L onger Active Jono Gagnon DO Active CITRATE OF MAGNESIA ORAL SOLUTION 1 bottle today for constipatio n MAGNESIUM CITRATE 05798277810 No Longer Active Jono Gagnon DO Active ZOFRAN 4 MG ORAL TABLET 1 TAB PO Q 6 HRS PRN NAUSEA 20 07/10/15 ONDANSETRON HCL 25976959998 No Longer Active Brii Larson APRN A ctive LOMOTIL 2.5-0.025 MG ORAL TABLET 1 to 2 four times a day as needed for diarrhea DIPHENOXYLATE-ATROPINE 01867169079 No Longer Active January Larson APRN Active AMOXICILLIN 500 MG ORAL TABLET 2 tabs twice a day for 10 days 07/09/11 AMOXICILLIN 65692516755 No Longer Active Brii Larson APRN Active CYCLOBENZAPRINE HCL 10 MG ORAL TABLET 1/2 - 1 tablet b y mouth three times daily as needed for muscle spasm/pain CYCLOBENZAPRINE HCL 95313615990 No Longer Active Arie Casper MD Active LOMOTIL 2.5-0.025 MG ORAL TABLET 1 to 2 four times a day as needed for diarrhea DIPHENOXYLATE-ATROPINE 84843371814 No Longer Active Fozia Casper MD Active MACROBID 100 MG ORAL CAPSULE 1 cap by mouth twice daily NITROFURANTOIN MONOHYD MACRO 89678254296 No Longer Active Arie Casper MD Active ZYRTEC ALLERGY 10 MG ORAL CAPSULE 1 po qd CE TIRIZINE HCL 08398932062 No Longer Active Arie Casper MD Active AZITHROMYCIN 250 MG ORAL TABLET 2 po qd x 1 day, then 1 po q d x 4 days AZITHROMYCIN 82042413142 No Longer Active Jessica salgado APRN Active PREDNISONE 20 MG ORAL TABLET 2 tabs daily for 3 days, 1 tab daily for 3 days, 1/2 tab daily for 2 days PREDNISONE 45024761344 No Longer Active Jessica Heaton APRN Active PROMETHAZINE HCL 25 MG ORAL TABLET 1 four times a day as nee ded for vomiting PROMETHAZINE HCL 12754773515 No Longer Active Myrna Roberto MD Active BACTRIM DS 800-160 MG ORAL TABLET 1 twice a day 05/30 SULFAMETHOXAZOLE-TRIMETHOPRIM 88477254206 No Longer Active Myrna Roberto MD Active VICKS DAYQUIL SEVERE COLD/FLU TABLET 1 tab every 6 hours prn 201 02/22/17 [id number] TABS 58093332122 No Longer Active Chris Roberto MD Active GUAIFENESIN-CODEINE 100-10 MG/5ML ORAL SYRUP 2 tsp every 6 hours prn GUAIFENESIN-CODEINE 73819371695 No Longer Active Myrna Roberto MD Active NAPROXEN 500 MG ORAL TABLET one tab PO BID NAPR OXEN 60284688866 No Longer Active Myrna Roberto MD Active AUGMENTIN 875-125 MG ORAL TABLET 1 tab by mouth twice daily with food AMOXICILLIN-POT CLAVULANATE 75254012738 No Longer Act zaid Liliana Estrada MD PhD Active AMOXICILLIN 500 MG ORAL CAPSULE 1 tab by mouth 3 times daily 201 02/21/05 AMOXICILLIN 13430328060 No Longer Active Liliana Estrada MD PhD Active TESSALON PERLES 100 MG ORAL CAPSULE 1 tablet by mouth 3 times da cory BENZONATATE 31703674158 No Longer Active Liliana Estrada MD PhD Active FLAGYL 500 MG ORAL TABLET 1 tablet by mouth two times daily 2014 METRONIDAZOLE 01524938697 No Longer Active Nilam Weber Ac tive ZITHROMAX 250 MG ORAL TABLET 2 po today, then 1 po q days 2-5 20 06/08/16 AZITHROMYCIN 65324764364 No Longer Active Arie Casper MD Active VITAMINS 0.8 MG ORAL TABLET take 1 tab po qday [id number] 70776765252 No Longer Active Arie Casper MD Active IBUPROFEN 800 MG ORAL TABLET take one po Q 8 hours 201 02/01/16 IBUPROFEN 48203212651 No Longer Active Arie Casper MD Acti ve [facility] TUSSIN COUGH/COLD CF 5-10-100 MG/5ML ORAL LIQUID 2 teasp oons every 4 hours [id number] 53961864552 No Longer Active Blaine Casper MD Active COMTREX COLD/COUGH DAY/NITE MS 5-2-10-325 MG ORAL 2 caps deja ry 4 hours [id number] 14207510613 No Longer Active Landon Casper MD Active CHLORASEPTIC MAX SORE THROAT 15-10 MG MOUTH/THROAT LOZENGE 1 every 2 hours prn BENZOCAINE-MENTHOL 94097248713 No Longer Active Arie Casper MD Active PREDNISONE 20 MG ORAL TABLET 2 tabs daily for 3 days, 1 tab daily for 3 days, 1/2 tab daily for 2 days PREDNISONE 20754553980 No Longer Active Jose Zhong MD Active AZITHROMYCIN 250 MG ORAL TABLET 2 po qd x 1 day, then 1 po q d x 4 days AZITHROMYCIN 33882449391 No Longer Active Jose Mcwilliams MD Active ZOFRAN ODT 4 MG ORAL TABLET DISINTEGRATING 1 po q6hr PRN Nausea ONDANSETRON 15346624238 No Longer Active Rich Rosales MD Active ZOFRAN 4 MG ORAL TABLET 1 tablet every 4 hours ONDANSETRON HCL 85385862803 No Longer Active Rich Rosales MD Activ e MUCINEX 600 MG ORAL TABLET EXTENDED RELEASE 12 HOUR Ta ke 1-2 tablets every 12 hours GUAIFENESIN 59414733525 No Longer Active Rich Rosales MD Active BACTRIM 400-80 MG ORAL TABLET take one po BID SULFAMETHOXAZOLE-TRIMETHOPRIM 67737162407 No Longer Active Abelardo HERNANDEZ Active AZITHROMYCIN 500 MG ORAL TABLET 1 PO q day x 6 days 03/02/23 AZITHROMYCIN 21967015331 No Longer Active Tin HERNANDEZ Activ e ZITHROMAX 250 MG ORAL TABLET 2 po today, then 1 po q days 2-5 20 10/03/08 AZITHROMYCIN 29116341107 No Longer Active Arie Casper MD Active ZITHROMAX 250 MG ORAL TABLET 2 po today, then 1 po q days 2-5 20 09/23/25 AZITHROMYCIN 15201085767 No Longer Active Arie Casper MD Active AMOXICILLIN 500 MG ORAL CAPSULE 1 tab by mouth 3 times daily 201 11/24/09 AMOXICILLIN 50813935779 No Longer Active Arie Casper MD Active BACTRIM DS 800-160 MG ORAL TABLET 1 tab by mouth twice daily 201 11/03/14 TRIMETHOPRIM-SULFAMETHOXAZOLE 83744824955 No Longer Active Fozia Casper MD Active AMOXICILLIN 500 MG ORAL TABLET take 1 tab po TID 08/05 AMOXICILLIN 94757564374 No Longer Active Arie Casper MD Acti ve BACTRIM DS 800-160 MG ORAL TABLET 1 tab by mouth twice daily 201 11/03/14 BACTRIM DS 800-160 MG ORAL TABLET 669296 TRIMETHOPRIM-SULFAMETHOXAZOLE Inactive MUCINEX 600 MG ORAL TABLET EXTENDED RELEASE 12 HOUR Ta ke 1-2 tablets every 12 hours MUCINEX 600 MG ORAL TABLET EXTENDED RELEA SE 12 HOUR GUAIFENESIN Inactive ZOFRAN 4 MG ORAL TABLET 1 tablet every 4 hours ZOFRAN 4 MG ORAL TABLET 447350 ONDANSETRON HCL Inactive ZOFRAN ODT 4 MG ORAL TABLET DISINTEGRATING 1 po q6hr PRN Nausea ZOFRAN ODT 4 MG ORAL TABLET DISINTEGRATING 803226 ONDAN SETRON Inactive CHLORASEPTIC MAX SORE THROAT 15-10 MG MOUTH/THROAT LOZENGE 1 every 2 hours prn CHLORASEPTIC MAX SORE THROAT 15-10 MG MOUTH/THROAT LOZENGE BENZOCAINE-MENTHOL Inactive COMTREX COLD/COUGH DAY/NITE MS 5-2-10-325 MG ORAL 2 caps deja ry 4 hours COMTREX COLD/COUGH DAY/NITE MS 5-2-10-325 MG ORA L [id number] Inactive [facility] TUSSIN COUGH/COLD CF 5-10-100 MG/5ML ORAL LIQUID 2 teasp oons every 4 hours [facility] TUSSIN COUGH/COLD CF 5-10-100 MG/5ML ORAL LI QUID [id number] Inactive IBUPROFEN 800 MG ORAL TABLET take one po Q 8 hours 201 02/01/16 IBUPROFEN 800 MG ORAL TABLET 627596 IBUPROFEN Inactive VITAMINS 0.8 MG ORAL TABLET take 1 tab po qday VITAMINS 0.8 MG ORAL TABLET [id number] E-FA Inactive TESSALON PERLES 100 MG ORAL CAPSULE 1 tablet by mouth 3 times da cory TESSALON PERLES 100 MG ORAL CAPSULE 108149 BENZONATATE Inactive AMOXICILLIN 500 MG ORAL CAPSULE 1 tab by mouth 3 times daily 201 02/21/05 AMOXICILLIN 500 MG ORAL CAPSULE 950873 AMOXICILLIN Inactive GUAIFENESIN-CODEINE 100-10 MG/5ML ORAL SYRUP 2 tsp every 6 hours prn GUAIFENESIN-CODEINE 100-10 MG/5ML ORAL SYRUP 092921 GUAIFENESIN-CODEINE Inactive VICKS DAYQUIL SEVERE COLD/FLU TABLET 1 tab every 6 hours prn 201 02/22/17 VICKS DAYQUIL SEVERE COLD/FLU TABLET PHENYLEPHRI [id number] TABS Inactive BACTRIM DS 800-160 MG ORAL TABLET 1 twice a day 05/30 BACTRIM DS 800-160 MG ORAL TABLET 408747 SULFAMETHOXAZOLE-TRIMETHOPRIM Inactiv e PROMETHAZINE HCL 25 MG ORAL TABLET 1 four times a day as nee ded for vomiting PROMETHAZINE HCL 25 MG ORAL TABLET 155746 PROMETHAZINE HCL Inactive ZYRTEC ALLERGY 10 MG ORAL CAPSULE 1 po qd ZYRTEC ALLERGY 10 MG ORAL CAPSULE CETIRIZINE HCL Inactive MACROBID 100 MG ORAL CAPSULE 1 cap by mouth twice daily MACROBID 100 MG ORAL CAPSULE 6742565 NITROFURANTOIN MONOHYD MACRO In active LOMOTIL 2.5-0.025 MG ORAL TABLET 1 to 2 four times a day as needed for diarrhea LOMOTIL 2.5-0.025 MG ORAL TABLET 4381619 DIPHENOXYLATE-ATROPINE Inactive CYCLOBENZAPRINE HCL 10 MG ORAL TABLET 1/2 - 1 tablet b y mouth three times daily as needed for muscle spasm/pain CYCLOBEN ZAPRINE HCL 10 MG ORAL TABLET 079531 CYCLOBENZAPRINE HCL Inactive AMOXICILLIN 500 MG ORAL TABLET 2 tabs twice a day for 10 days 07/09/11 AMOXICILLIN 500 MG ORAL TABLET 659025 AMOXICILLIN I nactive LOMOTIL 2.5-0.025 MG ORAL TABLET 1 to 2 four times a day as needed for diarrhea LOMOTIL 2.5-0.025 MG ORAL TABLET 2778375 DIPHENOXYLATE-ATROPINE Inactive ZOFRAN 4 MG ORAL TABLET 1 TAB PO Q 6 HRS PRN NAUSEA 07/10/15 ZOFRAN 4 MG ORAL TABLET 786264 ONDANSETRON HCL Inactive CITRATE OF MAGNESIA ORAL SOLUTION 1 bottle today for constipatio n CITRATE OF MAGNESIA ORAL SOLUTION 0629414 MAGNESIUM CITR ATE Inactive PROMETHAZINE HCL 12.5 MG ORAL TABLET 1 tablet by mouth every 6 hours as needed for nausea/vomiting PROMETHAZINE HCL 12.5 MG ORA L TABLET 065271 PROMETHAZINE HCL Inactive PREDNISONE 20 MG ORAL TABLET 1 tablet twice daily for 2 days, then 1 tablet once daily for 2 days PREDNISONE 20 MG ORAL TABLET 984799 PREDNISONE Inactive ALPRAZOLAM 0.25 MG ORAL TABLET 1 tablet by mouth every 8 hours as needed for stress ALPRAZOLAM 0.25 MG ORAL TABLET 254332 ALPRA ZOLAM Inactive FLONASE 50 MCG/ACT NASAL SUSPENSION 1 spray each nostr il twice daily for allergies and runny nose until gone FLON ASE 50 MCG/ACT NASAL SUSPENSION 8298668 FLUTICASONE PROPIONATE Inactive PREDNISONE 20 MG ORAL TABLET 1 tablet daily for airway inflammat ion PREDNISONE 20 MG ORAL TABLET 575145 PREDNISONE [place] ctive NAPROXEN 500 MG ORAL TABLET Take 1 tab BID NAPROXEN 500 MG ORAL TABLET 627469 NAPROXEN Inactive ZOLOFT 50 MG ORAL TABLET 1 tablet by mouth daily 12/08 ZOLOFT 50 MG ORAL TABLET 692492 SERTRALINE HCL Inactive LOMOTIL 2.5-0.025 MG ORAL TABLET 1 tab po four times a day as needed for diarrhea LOMOTIL 2.5-0.025 MG ORAL TABLET 8798609 DIPHENOXYLATE-ATROPINE Inactive CETIRIZINE HCL 10 MG ORAL TABLET 1 po qd PRN Allergies CETIRIZINE HCL 10 MG ORAL TABLET 7971692 CETIRIZINE HCL Inactiv e TUSSIONEX PENNKINETIC ER 10-8 MG/5ML ORAL SUSPENSION E XTENDED RELEASE 5ml po q12hr PRN Cough TUSSIONEX PENNKINETI C ER 10-8 MG/5ML ORAL SUSPENSION EXTENDED RELEASE HYDROCOD POLST-CHLORPHEN POLST I nactive NEXPLANON IMPLANT right arm subcutaneously NEXPLANON IMPLANT ETONOGESTREL IMPL Inactive PROTONIX 40 MG ORAL TABLET DELAYED RELEASE 1 po q a.m. PROTONIX 40 MG ORAL TABLET DELAYED RELEASE 898684 PANTOPRAZOLE SODI UM Inactive AMOXICILLIN 500 MG ORAL TABLET take 1 tab po TID 08/05 AMOXICILLIN 500 MG ORAL TABLET 477281 AMOXICILLIN Inactive AMOXICILLIN 500 MG ORAL CAPSULE 1 tab by mouth 3 times daily 201 11/24/09 AMOXICILLIN 500 MG ORAL CAPSULE 492096 AMOXICILLIN Inactive ZITHROMAX 250 MG ORAL TABLET 2 po today, then 1 po q days 2-5 20 09/23/25 ZITHROMAX 250 MG ORAL TABLET 317530 AZITHROMYCIN [place] ctive ZITHROMAX 250 MG ORAL TABLET 2 po today, then 1 po q days 2-5 20 10/03/08 ZITHROMAX 250 MG ORAL TABLET 550528 AZITHROMYCIN [place] ctive AZITHROMYCIN 500 MG ORAL TABLET 1 PO q day x 6 days 20 03/02/23 AZITHROMYCIN 500 MG ORAL TABLET 5027966 AZITHROMYCIN Inactive BACTRIM 400-80 MG ORAL TABLET take one po BID BACTRIM 400- 80 MG ORAL TABLET 441727 SULFAMETHOXAZOLE-TRIMETHOPRIM Inactive AZITHROMYCIN 250 MG ORAL TABLET 2 po qd x 1 day, then 1 po q d x 4 days AZITHROMYCIN 250 MG ORAL TABLET 826024 AZITHROMY ALLISON Inactive PREDNISONE 20 MG ORAL TABLET 2 tabs daily for 3 days, 1 tab daily for 3 days, 1/2 tab daily for 2 days PREDNISONE 20 MG ORAL T ABLET 180420 PREDNISONE Inactive ZITHROMAX 250 MG ORAL TABLET 2 po today, then 1 po q days 2-5 20 06/08/16 ZITHROMAX 250 MG ORAL TABLET 765944 AZITHROMYCIN [place] ctive FLAGYL 500 MG ORAL TABLET 1 tablet by mouth two times daily 2014 FLAGYL 500 MG ORAL TABLET 054769 METRONIDAZOLE Inacti ve AUGMENTIN 875-125 MG ORAL TABLET 1 tab by mouth twice daily with food AUGMENTIN 875-125 MG ORAL TABLET 683531 AMOXICIL ELSA-POT CLAVULANATE Inactive NAPROXEN 500 MG ORAL TABLET one tab PO BID NAPROXEN 500 MG ORAL TABLET 144720 NAPROXEN Inactive PREDNISONE 20 MG ORAL TABLET 2 tabs daily for 3 days, 1 tab daily for 3 days, 1/2 tab daily for 2 days PREDNISONE 20 MG ORAL T ABLET 000906 PREDNISONE Inactive AZITHROMYCIN 250 MG ORAL TABLET 2 po qd x 1 day, then 1 po q d x 4 days AZITHROMYCIN 250 MG ORAL TABLET 620905 AZITHROMY ALLISON Inactive PREDNISONE 20 MG ORAL TABLET 2 tabs daily for 3 days, 1 tab daily for 3 days, 1/2 tab daily for 2 days PREDNISONE 20 MG ORAL T ABLET 779617 PREDNISONE Inactive ZITHROMAX Z-EMIL 250 MG ORAL TABLET 2 today, then 1 daily for 4 d ays ZITHROMAX Z-EMIL 250 MG ORAL TABLET 979420 AZITHROMYCIN Inactive CEFDINIR 300 MG ORAL CAPSULE 1 po BID x 10 days 12/18 CEFDINIR 300 MG ORAL CAPSULE 614935 CEFDINIR Inactive CEFDINIR 300 MG ORAL CAPSULE 1 po BID x 10 days CEFDINIR 300 MG ORAL CAPSULE 20030127 CEFDINIR Inactive PREDNISONE 20 MG ORAL TABLET 2 tabs daily for 3 days, 1 tab daily for 3 days, 1/2 tab daily for 2 days PREDNISONE 20 MG ORAL T ABLET 790821 PREDNISONE Inactive BACTRIM DS 800-160 MG ORAL TABLET 1 tab by mouth twice daily 201 05/02/30 BACTRIM DS 800-160 MG ORAL TABLET 513538 TRIMETHOPRIM-SULFAMETHOXAZOLE Inactive ZITHROMAX Z-EMIL 250 MG ORAL TABLET 2 today, then 1 daily for 4 d ays ZITHROMAX Z-EMIL 250 MG ORAL TABLET 077239 AZITHROMYCIN Inactive Advance Directives Directive Description Start [...] 263 10^3/MM^3 10*3/mm3 142-424 Lab Report: Chlamydia/GC APTIMA/12435 - Lab chlamydia DNA probe NOT DETECTED NOT DETECTED Lab Report: Chlamydia/GC APTIMA/55157 - Microbiology Neisseria gonorrhoeae DNA probe NOT [...] 5.0-8.5 Encounters Code Encounter Date Provider Facility CPT-65407 Level 3 Est. Patient 14:55:50 PERSONAL COACH Jose Zhong MD [facility] CPT-14840 Level 3 Est. Patient 10:21:41 PERSONAL COACH Arie mcqueen MD [facility] CPT-16755 Level 3 Est. Patient 11:35:15 PERSONAL COACH Arie mcqueen MD [facility] CPT-69290 Level 3 Est. Patient 15:40:28 CDT Brii And erson JOURNEYMAN PIPEFITTER [facility] CPT-88982 Level 3 Est. Patient 16:40:36 CDT Arie mcqueen MD [facility] CPT-09682 Level 4 Est. Patient 15:29:22 PERSONAL COACH Arie mcqueen MD [facility] CPT-07721 Level 3 Est. Patient 15:18:16 PERSONAL COACH Jono black [facility] CPT-25791 Level 4 Est. Patient 12:08:40 PERSONAL COACH Brii And erson JOURNEYMAN PIPEFITTER [facility] CPT-04427 Level 3 Est. Patient 09:24:42 CDT Brii And erson [facility] CPT-40922 Level 3 Est. Patient 09:12:56 CDT Arie mcqueen MD [facility] CPT-80052 Level 3 Est. Patient 16:40:54 CDT Jose Zhong MD [facility] CPT-31522 Level 2 Est. Patient 13:01:13 CDT Brii And erson JOURNEYMAN PIPEFITTER [facility] CPT-39272 Level 3 Est. Patient 11:55:30 PERSONAL COACH Jono black [facility] CPT-16671 Level 3 Est. Patient 09:52:36 PERSONAL COACH Brii And erson JOURNEYMAN PIPEFITTER [facility] CPT-44411 Level 3 Est. Patient 16:25:33 PERSONAL COACH Rich Rosales MD [facility] CPT-67035 Level 3 Est. Patient 20:33:55 CDT Arie mcqueen MD [facility] CPT-41996 Level 3 Est. Patient 14:18:20 CDT Rich Rosales MD [facility] CPT-36869 Level 4 Est. Patient 09:34:31 CDT Arie mcqueen MD [facility] CPT-13205 Level 3 Est. Patient 09:08:55 PERSONAL COACH Liliana vincent MD PhD [facility] CPT-34334 Level 3 Est. Patient 16:44:07 PERSONAL COACH Arie mcqueen MD [facility] CPT-57991 Level 3 Est. Patient 10:44:27 CDT Arie mcqueen MD [facility] CPT-12903 Level 3 Est. Patient 08:55:41 CDT Jose Zhong MD [facility] CPT-71255 Level 3 Est. Patient 18:37:31 CDT Liliana vincent MD PhD [facility] CPT-41393 Level 3 Est. Patient 14:28:23 CDT Abelardo HERNANDEZ [facility] CPT-80934 Level 3 Est. Patient 15:18:13 PERSONAL COACH Arie mcqueen MD [facility] CPT-65161 Level 3 Est. Patient 10:11:29 PERSONAL COACH Arie mcqueen MD [facility] CPT-52301 Level 3 Est. Patient 10:55:57 PERSONAL COACH Jono black DO [facility] CPT-96047 Level 3 Est. Patient 17:29:05 CDT Arie mcqueen MD [facility] Procedures Code Procedure Name Date Entry Date Standard Desc ription CPT-41650 Nexplanon Removal 15:40:28 CDT CPT-50563 Sono transvag pelvis non OB uterus ovari es cervix - XRAY USE ONLY 08:58:14 PERSONAL COACH CPT-18891 UA w micro - LAB USE ONLY 16:04:56 PERSONAL COACH 2015 CPT-83234 Wet Prep/GEN - LAB USE ONLY 16:04:56 PERSONAL COACH 20 08/10/29 CPT-65767 First Vx - Ix admin via ID I M or jet injects without counseling by physician 16:57:10 CDT CPT-45232 Fluzone Preservative Free Intramuscular Suspension 16:57:10 CDT CPT-J0696 Rocephin 1000 mg (Ceftriaxone) 11:49:23 CDT CPT-J1040 Depo Medrol 80 mg (Methyl Prednisolone A cetate) 11:49:23 CDT CPT-J1100 Decadron 8mg (Dexamethasone) 11:49:23 CDT 2 CPT-21263 Abx/Therapy Injection 11:49:23 CDT CPT-58721 Abx/Therapy Injection 11:49:23 CDT CPT-91531 Abd compl w upright 09:07:26 PERSONAL COACH CPT-57568 Ear Wash 16:12:47 PERSONAL COACH CPT-OV Office Visit 11:12:01 CDT CPT-OV Office Visit 15:30:23 CDT CPT-50531 Sono pelvis non OB uterus ovaries cervix 15:50:44 CDT CPT-44257 Hand comp min 3V 16:42:32 CDT CPT-43004 Abd compl w upright 12:17:01 CDT CPT-93675 Nexplanon Placement 15:07:39 PERSONAL COACH CPT-91009 Removal of IUD 15:07:39 PERSONAL COACH CPT-52371 TB Tubersol 12:09:32 CDT CPT-66220 TB Tubersol 13:55:43 CDT
--- OUTSIDE RECORDS SUMMARY | 2020-03-03 07:28 | XMS REPORT | Clinical Summary ---
Author Author Admin, Diamante Marcelo Organization [employer] Address Unknown Phone Unavailable Allergies, Adverse Reactions, [...] pain, unspecified site Abdominal pain 789.00 Active Biri Larson WOMEN DESIGNER Abdominal pain, unspecified site Diarrhea 787.91 Resolved [...] hypodermic needle Post-op care V67.00 Active Myrna Roebrto MD Follow-up examination following surgery, unspecified Constipation [...] cute pharyngitis Nausea 787.02 Active Brii Larson WOMEN DESIGNER Nausea alone URI 465.9 Active Jono Gagnon DO Acu te upper respiratory infections of unspecified site Allergic rhinitis 477.9 Active Brii Christianson PRN Allergic rhinitis, cause unspecified Abdominal pain, right lower quadrant 789.03 Active Jose Zhong MD Abdominal pain, right lower quadrant Urinary frequency 788.41 Inactive Roseann Crawford Urinary frequency Urinary frequency 788.41 Active 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, [employer] Urinary frequency Sinusitis - acute 461.9 Active Brii Christianson PRN Acute sinusitis, unspecified Anxiety with depression 300.4 Active Glenn Larson WOMEN DESIGNER Dysthymic disorder URI 465.9 Active Jono Gagnon [...] Meghan Estrada MD PhD CYSTITIS ICD-595.9 Inactive Lilaina Estrada MD Ph D SINUSITIS ICD-473.9 Inactive [...] discharge ICD-623.5 Inactive Liliana lares MD PhD BREAST CANCER ICD-V16.3 Inactive Jose Marcelo Medication List Medication Instructions Start Date Stop Date Generic Name NDC Status Provider Patient Instruction PREDNISONE 20 MG TAB 2 tabs daily for 3 days, 1 t ab daily for 3 days, 1/2 tab daily for 2 days PREDNISONE 87004887282 No Longer Active Arie Casper MD Active TUSSIONEX PENNKINETIC ER 10-8 MG/5ML LQCR 5ml po q12hr PRN Cough 20 07/02/19 HYDROCOD POLST-CHLORPHEN POLST 52781720863 Active Arie Casper MD Active CETIRIZINE HCL 10 MG ORAL TABS 1 po qd PRN Allergies CETIRIZINE HCL 28831392259 Active Arie Casper MD Active NEXPLANON IMPL right arm subcutaneously ETONOGE STREL IMPL 12901620229 Active Arie Casper MD Active LOMOTIL 2.5-0.025 MG TAB 1 tab po four times a day as needed for diarrhea DIPHENOXYLATE-ATROPINE 80153361446 No Longer Active Fozia Casper MD Active ZOLOFT 50 MG TAB 1 tablet by mouth daily SERTRA LINE HCL 94730949708 No Longer Active Arie Casper MD Active NAPROXEN 500 MG TAB Take 1 tab BID NAPROXEN 332 40712226 No Longer Active Arie Capser MD Active CEFDINIR 300 MG CAPS 1 po BID x 10 days CEFDINI R 98290937194 No Longer Active Brii Larson APRN Active PREDNISONE 20 MG TAB 1 tablet daily for airway inflammation 2015 PREDNISONE 52366439029 No Longer Active Brii Larson APRN Active CEFDINIR 300 MG CAPS 1 po BID x 10 days CEFDINI R 05849573658 No Longer Active Jono Gagnon DO Active FLONASE 50 MCG/ACT SUSP 1 spray each nostril twice d aily for allergies and runny nose until gone FLUTICASONE PROPIONATE No Longe r Active Jono Gagnon DO Active ALPRAZOLAM 0.25 MG TAB 1 tablet by mouth every 8 hours as ne eded for stress ALPRAZOLAM 80900697078 No Longer Active Jono Gagnon DO Active ZITHROMAX Z-EMIL 250 MG TABS 2 today, then 1 daily for 4 days 201 03/31/18 AZITHROMYCIN 56980887483 No Longer Active Arie Casper MD Active PROTONIX 40 MG ORAL TBEC 1 po q a.m. PANTOPRAZO LE SODIUM 70584856656 Active Arie Casper MD Active PREDNISONE 20 MG TAB 2 tabs daily for 3 days, 1 t ab daily for 3 days, 1/2 tab daily for 2 days PREDNISONE 59028591701 No Longer Active Brii Larson APRN Active PREDNISONE 20 MG TAB 1 tablet twice daily for 2 d ays, then 1 tablet once daily for 2 days PREDNISONE 70508890820 No Longer Active Brii Larson APRN Active PROMETHAZINE HCL 12.5 MG TABS 1 tablet by mouth every 6 hours as needed for nausea/vomiting PROMETHAZINE HCL 32520865485 No Longe r Active Jono Gagnon DO Active CITRATE OF MAGNESIA ORAL SOLN 1 bottle today for constipation 20 07/10/15 MAGNESIUM CITRATE 24235155872 No Longer Active Jono Gagnon DO Active ZOFRAN 4 MG ORAL TABS 1 TAB PO Q 6 HRS PRN NAUSEA 2014 ONDANSETRON HCL 80462726792 No Longer Active Brii Larson APRN A ctive LOMOTIL 2.5-0.025 MG TAB 1 to 2 four times a day as needed f or diarrhea DIPHENOXYLATE-ATROPINE 06616981631 No Longer Active January Larson APRN Active AMOXICILLIN 500 MG TABS 2 tabs twice a day for 10 days AMOXICILLIN 75027534433 No Longer Active Brii Larson APRN Acti ve CYCLOBENZAPRINE HCL 10 MG TABS 1/2 - 1 tablet by mouth three times daily as needed for muscle spasm/pain CYCLOBENZAPRINE HCL 03639309699 No Longer Active Arie Casper MD Active LOMOTIL 2.5-0.025 MG TABS 1 to 2 four times a day as needed for diarrhea DIPHENOXYLATE-ATROPINE 15962922213 No Longer Active Fozia Casper MD Active MACROBID 100 MG CAP 1 cap by mouth twice daily NITROFURANTOIN MONOHYD MACRO 20849184965 No Longer Active Arie Casper MD Active ZYRTEC ALLERGY 10 MG CAPS 1 po qd CETIRIZINE HCL 27756498499 No Longer Active Arie Casper MD Active AZITHROMYCIN 250 MG TABS 2 po qd x 1 day, then 1 po qd x 4 days AZITHROMYCIN 70854391285 No Longer Active Jillina Frazell WOMEN DESIGNER Active PREDNISONE 20 MG TAB 2 tabs daily for 3 days, 1 t ab daily for 3 days, 1/2 tab daily for 2 days PREDNISONE 56901383476 No Longer Active Jillina Frazell WOMEN DESIGNER Active PROMETHAZINE HCL 25 MG TABS 1 four times a day as needed for vomiting PROMETHAZINE HCL 15552933350 No Longer Active Myrna Roberto MD Active BACTRIM DS 800-160 MG TABS 1 twice a day SULFAMETHOXAZOLE-TRIMETHOPRIM 66861576921 No Longer Active Myrna Roberto MD Active VICKS DAYQUIL SEVERE COLD/FLU TABS 1 tab every 6 hours prn 12/10 QMCORUAQUKXRP-AS-WN-APAP TABS 64173134195 No Longer Active Myrna leigh MD Active GUAIFENESIN-CODEINE 100-10 MG/5ML ORAL SYRP 2 tsp every 6 hours prn GUAIFENESIN-CODEINE 67558686915 No Longer Active Myrna Roberto MD Active NAPROXEN 500 MG TAB one tab PO BID NAPROXEN 332 38869610 No Longer Active Myrna Roberto MD Active AUGMENTIN 875-125 MG TAB 1 tab by mouth twice daily with food 08/12/16 AMOXICILLIN-POT CLAVULANATE 91642827319 No Longer Active Liliana Estrada MD PhD Active AMOXICILLIN 500 MG CAP 1 tab by mouth 3 times daily 08/12/16 AMOXICILLIN 48279345679 No Longer Active Liliana Estrada MD PhD Acti ve TESSALON PERLES 100 MG CAP 1 tablet by mouth 3 times daily 11/01 BENZONATATE 55452237666 No Longer Active Liliana Estrada MD PhD Active FLAGYL 500 MG TAB 1 tablet by mouth two times daily 07/11/29 METRONIDAZOLE 44264144044 No Longer Active Nilam Weber Active ZITHROMAX 250 MG TAB 2 po today, then 1 po q days 2-5 AZITHROMYCIN 42102350289 No Longer Active Arie Casper MD Acti ve VITAMINS 0.8 MG TABS take 1 tab po qday 08/08 [id number] 13651996401 No Longer Active Arie Casper MD Active IBUPROFEN 800 MG TABS take one po Q 8 hours IBU PROFEN 44991740169 No Longer Active Arie Casper MD Active [facility] TUSSIN COUGH/COLD CF 5-10-100 MG/5ML LIQD 2 teaspoons ev eliud 4 hours HOAZJYOHOIMLZ-[id number]-OY 53573619505 No Longer Active Blaine Casper MD Active COMTREX COLD/COUGH DAY/NITE MS 5-2-10-325 MG MISC 2 caps deja ry 4 hours MYDODYGTQ-QDL-HI-APAP 74160118911 No Longer Active Da aleksandra Casper MD Active CHLORASEPTIC MAX SORE THROAT 15-10 MG LOZG 1 every 2 hours prn 2 BENZOCAINE-MENTHOL 82878848478 No Longer Active Arie Marcelo Active PREDNISONE 20 MG TAB 2 tabs daily for 3 days, 1 t ab daily for 3 days, 1/2 tab daily for 2 days PREDNISONE 53767838774 No Longer Active Jose Zhong MD Active AZITHROMYCIN 250 MG TABS 2 po qd x 1 day, then 1 po qd x 4 days AZITHROMYCIN 62956712365 No Longer Active Jose Zhong MD Active ZOFRAN ODT 4 MG TBDP 1 po q6hr PRN Nausea ONDAN SETRON 58671740549 No Longer Active Rich Rosales MD Active ZOFRAN 4 MG TABS 1 tablet every 4 hours ASUNCION ALLAN HCL 70015083730 No Longer Active Rich Rosales MD Active MUCINEX 600 MG [id number] Take 1-2 tablets every 12 hours GUAIFENESIN 43457422775 No Longer Active Rich Rosales MD Activ e BACTRIM 400-80 MG TABS take one po BID SULFAMETHOXAZOLE-TRIMETHOPRIM 20290404843 No Longer Active Abelardo HERNANDEZ Active AZITHROMYCIN 500 MG TABS 1 PO q day x 6 days AZ ITHROMYCIN 98250522928 No Longer Active Tin HERNANDEZ Active ZITHROMAX 250 MG TAB 2 po today, then 1 po q days 2-5 AZITHROMYCIN 55917800840 No Longer Active Arie Casper MD Acti ve ZITHROMAX 250 MG TAB 2 po today, then 1 po q days 2-5 AZITHROMYCIN 35628845169 No Longer Active Arie Casper MD Acti ve AMOXICILLIN 500 MG CAP 1 tab by mouth 3 times daily 09/23/20 AMOXICILLIN 85388746309 No Longer Active Arie Casper MD Acti ve BACTRIM DS 800-160 MG TAB 1 tab by mouth twice daily 2 TRIMETHOPRIM-SULFAMETHOXAZOLE 83986492121 No Longer Active Arie Casper MD Active AMOXICILLIN 500 MG TABS take 1 tab po TID AMOXI CILLIN 55099493062 No Longer Active Arie Casper MD Active BACTRIM DS 800-160 MG TAB 1 tab by mouth twice daily 2 BACTRIM DS 800-160 MG TAB 183642 TRIMETHOPRIM-SULFAMETHOXAZOLE Inac tive MUCINEX 600 MG [id number] Take 1-2 tablets every 12 hours MUCINEX 600 MG [id number] GUAIFENESIN Inactive ZOFRAN 4 MG TABS 1 tablet every 4 hours ZOFRAN 4 MG TABS 601628 ONDANSETRON HCL Inactive ZOFRAN ODT 4 MG TBDP 1 po q6hr PRN Nausea ZOFRAN ODT 4 MG TBDP 335737 ONDANSETRON Inactive CHLORASEPTIC MAX SORE THROAT 15-10 MG LOZG 1 every 2 hours prn 2 CHLORASEPTIC MAX SORE THROAT 15-10 MG LOZG BENZO ARINA-MENTHOL Inactive COMTREX COLD/COUGH DAY/NITE MS 5-2-10-325 MG MISC 2 caps deja ry 4 hours COMTREX COLD/COUGH DAY/NITE MS 5-2-10-325 MG MIS C [id number]-VE-APAP Inactive [facility] TUSSIN COUGH/COLD CF 5-10-100 MG/5ML LIQD 2 teaspoons ev eliud 4 hours [facility] TUSSIN COUGH/COLD CF 5-10-100 MG/5ML LIQD RDQQARIZULXQV-ER-GR Inactive IBUPROFEN 800 MG TABS take one po Q 8 hours IBUPROFEN 800 MG TABS IBUPROFEN Inactive VITAMINS 0.8 MG TABS take 1 tab po qday 08/08 VITAMINS 0.8 MG TABS [id number] Inactive TESSALON PERLES 100 MG CAP 1 tablet by mouth 3 times daily 11/01 TESSALON PERLES 100 MG CAP 137383 BENZONATATE Inact zaid AMOXICILLIN 500 MG CAP 1 tab by mouth 3 times daily 08/12/16 AMOXICILLIN 500 MG CAP 889056 AMOXICILLIN Inactive GUAIFENESIN-CODEINE 100-10 MG/5ML ORAL SYRP 2 tsp every 6 hours prn GUAIFENESIN-CODEINE 100-10 MG/5ML ORAL SYRP 506660 GUAIFENESIN-CODEINE Inactive VICKS DAYQUIL SEVERE COLD/FLU TABS 1 tab every 6 hours prn 12/10 VICKS DAYQUIL SEVERE COLD/FLU TABS PHENYLEPHRINE -DM-GG-APAP TABS Inactive BACTRIM DS 800-160 MG TABS 1 twice a day BACTRIM DS 800- 160 MG TABS 640353 SULFAMETHOXAZOLE-TRIMETHOPRIM Inactive PROMETHAZINE HCL 25 MG TABS 1 four times a day as needed for vomiting PROMETHAZINE HCL 25 MG TABS 538312 PROMETHAZINE HCL Inactive ZYRTEC ALLERGY 10 MG CAPS 1 po qd ZY RTEC ALLERGY 10 MG CAPS CETIRIZINE HCL Inactive MACROBID 100 MG CAP 1 cap by mouth twice daily MACROBID 100 MG CAP 2867818 NITROFURANTOIN MONOHYD MACRO Inactive LOMOTIL 2.5-0.025 MG TABS 1 to 2 four times a day as needed for diarrhea LOMOTIL 2.5-0.025 MG TABS 6847957 DIPHENOXYLATE-A TROPINE Inactive CYCLOBENZAPRINE HCL 10 MG TABS 1/2 - 1 tablet by mouth three times daily as needed for muscle spasm/pain CYCLOBENZAP RINE HCL 10 MG TABS 737600 CYCLOBENZAPRINE HCL Inactive AMOXICILLIN 500 MG TABS 2 tabs twice a day for 10 days AMOXICILLIN 500 MG TABS 034162 AMOXICILLIN Inactive LOMOTIL 2.5-0.025 MG TAB 1 to 2 four times a day as needed f or diarrhea LOMOTIL 2.5-0.025 MG TAB 8746940 DIPHENOXYLATE-AT ROPINE Inactive ZOFRAN 4 MG ORAL TABS 1 TAB PO Q 6 HRS PRN NAUSEA 2014 ZOFRAN 4 MG ORAL TABS 830380 ONDANSETRON HCL Inactive CITRATE OF MAGNESIA ORAL SOLN 1 bottle today for constipation 20 07/10/15 CITRATE OF MAGNESIA ORAL SOLN 6699003 MAGNESIUM CITRATE Inactive PROMETHAZINE HCL 12.5 MG TABS 1 tablet by mouth every 6 hours as needed for nausea/vomiting PROMETHAZINE HCL 12.5 MG TABS 899031 PROMETHAZINE HCL Inactive PREDNISONE 20 MG TAB 1 tablet twice daily for 2 d ays, then 1 tablet once daily for 2 days PREDNISONE 20 MG TAB 748202 PREDNISONE Inac tive ALPRAZOLAM 0.25 MG TAB 1 tablet by mouth every 8 hours as ne eded for stress ALPRAZOLAM 0.25 MG TAB 001117 ALPRAZOLAM Inact zaid FLONASE 50 MCG/ACT SUSP 1 spray each nostril twice d aily for allergies and runny nose until gone FLONASE 50 MCG/ACT SUSP 3824590 FLUTICASONE PROPIONATE Inactive PREDNISONE 20 MG TAB 1 tablet daily for airway inflammation 2015 PREDNISONE 20 MG TAB 880607 PREDNISONE Inactive NAPROXEN 500 MG TAB Take 1 tab BID NAPROXEN 500 MG TAB 319507 NAPROXEN Inactive ZOLOFT 50 MG TAB 1 tablet by mouth daily ZOLOFT 50 MG TAB 345092 SERTRALINE HCL Inactive LOMOTIL 2.5-0.025 MG TAB 1 tab po four times a day as needed for diarrhea LOMOTIL 2.5-0.025 MG TAB 4742657 DIPHENOXYLATE-AT ROPINE Inactive AMOXICILLIN 500 MG TABS take 1 tab po TID AMOXICILLIN 500 MG TABS 673006 AMOXICILLIN Inactive AMOXICILLIN 500 MG CAP 1 tab by mouth 3 times daily 09/23/20 AMOXICILLIN 500 MG CAP 890814 AMOXICILLIN Inactive ZITHROMAX 250 MG TAB 2 po today, then 1 po q days 2-5 ZITHROMAX 250 MG TAB 9510500 AZITHROMYCIN Inactive ZITHROMAX 250 MG TAB 2 po today, then 1 po q days 2-5 ZITHROMAX 250 MG TAB 6789210 AZITHROMYCIN Inactive AZITHROMYCIN 500 MG TABS 1 PO q day x 6 days 3 AZITHROMYCIN 500 MG TABS 6026041 AZITHROMYCIN Inactive BACTRIM 400-80 MG TABS take one po BID BA CTRIM 400-80 MG TABS 495030 SULFAMETHOXAZOLE-TRIMETHOPRIM Inactive AZITHROMYCIN 250 MG TABS 2 po qd x 1 day, then 1 po qd x 4 days AZITHROMYCIN 250 MG TABS 4361118 AZITHROMYCIN Inactiv e PREDNISONE 20 MG TAB 2 tabs daily for 3 days, 1 t ab daily for 3 days, 1/2 tab daily for 2 days PREDNISONE 20 MG TAB 115760 PREDNISON E Inactive ZITHROMAX 250 MG TAB 2 po today, then 1 po q days 2-5 ZITHROMAX 250 MG TAB 9627453 AZITHROMYCIN Inactive FLAGYL 500 MG TAB 1 tablet by mouth two times daily 07/11/29 FLAGYL 500 MG TAB 014753 METRONIDAZOLE Inactive AUGMENTIN 875-125 MG TAB 1 tab by mouth twice daily with food 20 08/12/16 AUGMENTIN 875-125 MG TAB 651692 AMOXICILLIN-POT CLAVULA ANGELO Inactive NAPROXEN 500 MG TAB one tab PO BID NAPROXEN 500 MG TAB 085960 NAPROXEN Inactive PREDNISONE 20 MG TAB 2 tabs daily for 3 days, 1 t ab daily for 3 days, 1/2 tab daily for 2 days PREDNISONE 20 MG TAB 271061 PREDNISON E Inactive AZITHROMYCIN 250 MG TABS 2 po qd x 1 day, then 1 po qd x 4 days AZITHROMYCIN 250 MG TABS 5597227 AZITHROMYCIN Inactiv e PREDNISONE 20 MG TAB 2 tabs daily for 3 days, 1 t ab daily for 3 days, 1/2 tab daily for 2 days PREDNISONE 20 MG TAB 345931 PREDNISON E Inactive ZITHROMAX Z-EMIL 250 MG TABS 2 today, then 1 daily for 4 days 201 03/31/18 ZITHROMAX Z-EMIL 250 MG TABS 0948473 AZITHROMYCIN Inac tive CEFDINIR 300 MG CAPS 1 po BID x 10 days C EFDINIR 300 MG CAPS 513088 CEFDINIR Inactive CEFDINIR 300 MG CAPS 1 po BID x 10 days C EFDINIR 300 MG CAPS 576555 CEFDINIR Inactive PREDNISONE 20 MG TAB 2 tabs daily for 3 days, 1 t ab daily for 3 days, 1/2 tab daily for 2 days PREDNISONE 20 MG TAB 338370 PREDNISON E Inactive Advance Directives Directive Description [...] in mm 0 mm Lab Report: Chlamydia/GC APTIMA/[id number] - Lab chlamydia DNA probe NOT DETECTED NOT DETECTED Lab Report: Chlamydia/GC APTIMA/[id number] - Microbiology Neisseria gonorrhoeae DNA probe NOT [...] Negative Negati ve bilirubin, urine Negative Negative pH, urine, semiquantitative 7.0 5.0-8.5 specific gravity, urine 1.025 1.000-1.030 appearance, urine Clear Clear urine color Yellow Colorless;Lightyellow;St raw;Yellow Encounters Code Encounter Date Provider Facility CPT-66974 Level 3 Est. Patient 16:40:36 CDT Arie mcqueen MD [facility] CPT-66909 Level 4 Est. Patient 15:29:22 SCARFING 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 Arie mcqueen MD [facility] CPT-10216 Level 3 Est. Patient 15:18:16 SCARFING 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 Jono black DO [facility] CPT-61692 Level 4 Est. Patient 12:08:40 SCARFING 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 Brii And erson [facility] CPT-11346 Level 3 Est. Patient 09:24:42 CDT Brii And melinaon WOMEN DESIGNER [facility] CPT-55619 Level 3 Est. Patient 09:12:56 CDT Arie mcqueen MD [facility] CPT-42849 Level 3 Est. Patient 16:40:54 CDT Jose Zhong MD [facility] CPT-45436 Level 2 Est. Patient 13:01:13 CDT [facility] Level 3 Est. Patient 11:55:30 SCARFING 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 Jono black [facility] CPT-68451 Level 3 Est. Patient 09:52:36 SCARFING 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 Brii La so CABRERA [facility] CPT-52206 Level 3 Est. Patient 16:25:33 SCARFING 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 Rich Rosales MD [facility] CPT-81270 Level 3 Est. Patient 20:33:55 CDT Arie mcqueen MD [facility] CPT-65783 Level 3 Est. Patient 14:18:20 CDT Rich Rosales MD [facility] CPT-82131 Level 4 Est. Patient 09:34:31 CDT Arie mcqueen MD [facility]-34423 Level 3 Est. Patient 09:08:55 SCARFING 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 Liliana vincent MD PhD [facility]-14882 Level 3 Est. Patient 16:44:07 SCARFING 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 Arie mcqueen MD [facility] CPT-50407 Level 3 Est. Patient 10:44:27 CDT Arie mcqueen MD [facility] [place]-47183 Level 3 Est. Patient 08:55:41 CDT Jose Zhong MD [facility] [place]-07951 Level 3 Est. Patient 18:37:31 CDT Liliana vincent MD PhD [facility] CPT-84247 Level 3 Est. Patient 14:28:23 CDT Abelardo HERNANDEZ [facility] CPT-61587 Level 3 Est. Patient 15:18:13 SCARFING 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 Arie mcqueen MD [facility] CPT-32902 Level 3 Est. Patient 10:11:29 SCARFING 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 Arie mcqueen MD [facility] CPT-37277 Level 3 Est. Patient 10:55:57 SCARFING 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 Jono Cheema ee DO [facility] CPT-93334 Level 3 Est. Patient 17:29:05 CDT Arie mcqueen MD [facility] Procedures Code Procedure Name Date Entry Date Standard Desc ription CPT-66713 Sono transvag pelvis non OB uterus ovari es cervix - XRAY USE ONLY 08:58:14 SCARFING 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 CPT-43009 UA w micro - LAB USE ONLY 16:04:56 SCARFING 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 2015 CPT-80896 Wet Prep/GEN - LAB USE ONLY 16:04:56 SCARFING 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 20 08/10/29 CPT-57953 First Vx - Ix admin via ID I M or jet injects without counseling by physician 16:57:10 CDT CPT-88890 Fluzone Preservative Free Intramuscular Suspension 16:57:10 CDT CPT-J0696 Rocephin 1000 mg (Ceftriaxone) 11:49:23 CDT CPT-J1040 Depo Medrol 80 mg (Methyl Prednisolone A cetate) 11:49:23 CDT CPT-J1100 Decadron 8mg (Dexamethasone) 11:49:23 CDT 2 CPT-61184 Abx/Therapy Injection 11:49:23 CDT CPT-39998 Abx/Therapy Injection 11:49:23 CDT CPT-87895 Abd compl w upright 09:07:26 SCARFING 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 CPT-34605 Ear Wash 16:12:47 SCARFING 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 CPT-OV Office Visit 11:12:01 CDT CPT-OV Office Visit 15:30:23 CDT CPT-25003 Sono pelvis non OB uterus ovaries cervix 15:50:44 CDT CPT-93462 Hand comp min 3V 16:42:32 CDT CPT-84992 Abd compl w upright 12:17:01 CDT CPT-59483 Nexplanon Placement 15:07:39 SCARFING 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 CPT-58800 Removal of IUD 15:07:39 SCARFING 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 CPT-27681 TB Tubersol 12:09:32 CDT CPT-03027 TB Tubersol 13:55:43 CDT
--- OUTSIDE RECORDS SUMMARY | 2020-03-03 07:28 | XMS REPORT | Clinical Summary ---
Author Author Admin, Diamante Marcelo Organization [facility] Address Unknown Phone Unavailable Allergies, Adverse Reactions, [...] cute pharyngitis Nausea 787.02 Active Brii Larson HALFTONE OPERATOR Nausea alone URI 465.9 Active Jono Gagnon DO Acu te upper respiratory infections of unspecified site Allergic rhinitis 477.9 Active Brii Christianson PRN Allergic rhinitis, cause unspecified Abdominal pain, right lower quadrant 789.03 Active Jose Zhong MD Abdominal pain, right lower quadrant Urinary frequency 788.41 Inactive Roseann Crawford Urinary frequency Urinary frequency 788.41 Active 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, [employer] Urinary frequency Sinusitis - acute 461.9 Active Brii Christianson PRN Acute sinusitis, unspecified Anxiety with depression 300.4 Active Glenn Larson HALFTONE OPERATOR Dysthymic disorder URI 465.9 Active Jono Gagnon DO Acu te upper respiratory infections of unspecified site Vaginal bleeding 623.8 Active Brii MARROQUIN RN Other specified noninflammatory disorders of vagina High risk sexual behavior V69.2 Active Arie Casper MD High-risk sexual behavior GERD 530.81 Active Arie Casper MD Esophageal reflux Encounter for surveillance of implantable subdermal contraceptiv e Active Brii Larson HALFTONE OPERATOR Vaginal bleeding 623.8 Active Arie Casper MD Other specified noninflammatory disorders of vagina COLON CANCER ICD-V16.0 Inactive Jose Zhong MD [...] acute ICD-461.9 Inactive Liliana cheema MD PhD Medication List Medication Instructions Start Date Stop Date Generic Name NDC Status Provider Patient Instruction CHERATUSSIN AC 100-10 MG/5ML ORAL SYRUP 1 tsp by mouth every 4 hours as needed for cough GUAIFENESIN-CODEINE 51181378666 Active Blaine Casper MD Active ZITHROMAX Z-EMIL 250 MG ORAL TABLET 2 today, then 1 daily for 4 d ays AZITHROMYCIN 89068425096 No Longer Active Arie Casper MD Active PROTONIX 40 MG ORAL TABLET DELAYED RELEASE 1 po q a.m. PANTOPRAZOLE SODIUM 07109488737 No Longer Active Arie Casper MD Active BACTRIM DS 800-160 MG ORAL TABLET 1 tab by mouth twice daily 201 05/02/30 TRIMETHOPRIM-SULFAMETHOXAZOLE 64376322958 No Longer Active R [facility] Active NEXPLANON IMPLANT right arm subcutaneously ETONOGESTREL IMPL 07125241692 No Longer Active Brii Larson APRN Acti ve TUSSIONEX PENNKINETIC ER 10-8 MG/5ML ORAL SUSPENSION E XTENDED RELEASE 5ml po q12hr PRN Cough HYDROCOD POLST-CHLORPHEN POLST 5 8779760411 No Longer Active Brii Larson APRN Active CETIRIZINE HCL 10 MG ORAL TABLET 1 po qd PRN Allergies CETIRIZINE HCL 64168064825 No Longer Active Brii Larson APRN Ac tive PREDNISONE 20 MG ORAL TABLET 2 tabs daily for 3 days, 1 tab daily for 3 days, 1/2 tab daily for 2 days PREDNISONE 79114019655 No Longer Active Arie Casper MD Active LOMOTIL 2.5-0.025 MG ORAL TABLET 1 tab po four times a day as needed for diarrhea DIPHENOXYLATE-ATROPINE 54774018982 No Lo nger Active Arie Casper MD Active ZOLOFT 50 MG ORAL TABLET 1 tablet by mouth daily 12/08 SERTRALINE HCL 90579672205 No Longer Active Arie Casper MD Ac tive NAPROXEN 500 MG ORAL TABLET Take 1 tab BID NAPR OXEN 08636144295 No Longer Active Arie Casper MD Active CEFDINIR 300 MG ORAL CAPSULE 1 po BID x 10 days CEFDINIR 28265076408 No Longer Active Brii Larson APRN Active PREDNISONE 20 MG ORAL TABLET 1 tablet daily for airway inflammat ion PREDNISONE 28736381861 No Longer Active Brii Larson APRN Active CEFDINIR 300 MG ORAL CAPSULE 1 po BID x 10 days CEFDINIR 08622832241 No Longer Active Jono Gagnon DO Active FLONASE 50 MCG/ACT NASAL SUSPENSION 1 spray each nostr il twice daily for allergies and runny nose until gone FLUT ICASONE PROPIONATE 60641884946 No Longer Active Jono Gagnon DO Active ALPRAZOLAM 0.25 MG ORAL TABLET 1 tablet by mouth every 8 hours as needed for stress ALPRAZOLAM 49665413665 No Longer Active Jono Gagnon DO Active ZITHROMAX Z-EMIL 250 MG ORAL TABLET 2 today, then 1 daily for 4 d ays AZITHROMYCIN 29863168302 No Longer Active Arie Casper MD Active PREDNISONE 20 MG ORAL TABLET 2 tabs daily for 3 days, 1 tab daily for 3 days, 1/2 tab daily for 2 days PREDNISONE 79019095524 No Longer Active Brii Larson APRN Active PREDNISONE 20 MG ORAL TABLET 1 tablet twice daily for 2 days, then 1 tablet once daily for 2 days PREDNISONE 33643140062 No Longer Active Brii Larson APRN Active PROMETHAZINE HCL 12.5 MG ORAL TABLET 1 tablet by mouth every 6 hours as needed for nausea/vomiting PROMETHAZINE HCL 95572320744 No L onger Active Jono Gagnon DO Active CITRATE OF MAGNESIA ORAL SOLUTION 1 bottle today for constipatio n MAGNESIUM CITRATE 79043505602 No Longer Active Jono Gagnon DO Active ZOFRAN 4 MG ORAL TABLET 1 TAB PO Q 6 HRS PRN NAUSEA 07/10/15 ONDANSETRON HCL 32659541146 No Longer Active Brii Larson APRN A ctive LOMOTIL 2.5-0.025 MG ORAL TABLET 1 to 2 four times a day as needed for diarrhea DIPHENOXYLATE-ATROPINE 50383175461 No Longer Active January Larson APRN Active AMOXICILLIN 500 MG ORAL TABLET 2 tabs twice a day for 10 days 20 07/09/11 AMOXICILLIN 47214930060 No Longer Active Brii Larson APRN Active CYCLOBENZAPRINE HCL 10 MG ORAL TABLET 1/2 - 1 tablet b y mouth three times daily as needed for muscle spasm/pain CYCLOBENZAPRINE HCL 27316111375 No Longer Active Arie Casper MD Active LOMOTIL 2.5-0.025 MG ORAL TABLET 1 to 2 four times a day as needed for diarrhea DIPHENOXYLATE-ATROPINE 00914062107 No Longer Active Fozia Casper MD Active MACROBID 100 MG ORAL CAPSULE 1 cap by mouth twice daily NITROFURANTOIN MONOHYD MACRO 28770991706 No Longer Active Arie Casper MD Active ZYRTEC ALLERGY 10 MG ORAL CAPSULE 1 po qd CE TIRIZINE HCL 48233917873 No Longer Active Arie Casper MD Active AZITHROMYCIN 250 MG ORAL TABLET 2 po qd x 1 day, then 1 po q d x 4 days AZITHROMYCIN 18733221224 No Longer Active Jillarlen Fra naomi HALFTONE OPERATOR Active PREDNISONE 20 MG ORAL TABLET 2 tabs daily for 3 days, 1 tab daily for 3 days, 1/2 tab daily for 2 days PREDNISONE 01811071963 No Longer Active Jillina Fradeepl HALFTONE OPERATOR Active PROMETHAZINE HCL 25 MG ORAL TABLET 1 four times a day as nee ded for vomiting PROMETHAZINE HCL 64400308458 No Longer Active Myrna Roberto MD Active BACTRIM DS 800-160 MG ORAL TABLET 1 twice a day 05/30 SULFAMETHOXAZOLE-TRIMETHOPRIM 57968481903 No Longer Active Myrna Roberto MD Active VICKS DAYQUIL SEVERE COLD/FLU TABLET 1 tab every 6 hours prn 201 02/22/17 [id number] TABS 93538863689 No Longer Active Chris Roberto MD Active GUAIFENESIN-CODEINE 100-10 MG/5ML ORAL SYRUP 2 tsp every 6 hours prn GUAIFENESIN-CODEINE 70930767923 No Longer Active Myrna Roberto MD Active NAPROXEN 500 MG ORAL TABLET one tab PO BID NAPR OXEN 64635100555 No Longer Active Myrna Roberto MD Active AUGMENTIN 875-125 MG ORAL TABLET 1 tab by mouth twice daily with food AMOXICILLIN-POT CLAVULANATE 83865372668 No Longer Act zaid Liliana Estrada MD PhD Active AMOXICILLIN 500 MG ORAL CAPSULE 1 tab by mouth 3 times daily 201 02/21/05 AMOXICILLIN 98138154148 No Longer Active Liliana Estrada MD PhD Active TESSALON PERLES 100 MG ORAL CAPSULE 1 tablet by mouth 3 times da cory BENZONATATE 05271764833 No Longer Active Liliana Estrada MD PhD Active FLAGYL 500 MG ORAL TABLET 1 tablet by mouth two times daily 2014 METRONIDAZOLE 71588603340 No Longer Active Nilam Doran tive ZITHROMAX 250 MG ORAL TABLET 2 po today, then 1 po q days 2-5 20 06/08/16 AZITHROMYCIN 87146806219 No Longer Active Arie Casper MD Active VITAMINS 0.8 MG ORAL TABLET take 1 tab po qday [id number] 37170306987 No Longer Active Arie Casper MD Active IBUPROFEN 800 MG ORAL TABLET take one po Q 8 hours 201 02/01/16 IBUPROFEN 36828189652 No Longer Active Arie Casper MD Acti ve [facility] TUSSIN COUGH/COLD CF 5-10-100 MG/5ML ORAL LIQUID 2 teasp oons every 4 hours [id number] 68835155639 No Longer Active Blaine Casper MD Active COMTREX COLD/COUGH DAY/NITE MS 5-2-10-325 MG ORAL 2 caps deja ry 4 hours [id number] 25828314556 No Longer Active Landon Casper MD Active CHLORASEPTIC MAX SORE THROAT 15-10 MG MOUTH/THROAT LOZENGE 1 every 2 hours prn BENZOCAINE-MENTHOL 95249528179 No Longer Active Arie Casper MD Active PREDNISONE 20 MG ORAL TABLET 2 tabs daily for 3 days, 1 tab daily for 3 days, 1/2 tab daily for 2 days PREDNISONE 22617749538 No Longer Active Jose Zhong MD Active AZITHROMYCIN 250 MG ORAL TABLET 2 po qd x 1 day, then 1 po q d x 4 days AZITHROMYCIN 48512335396 No Longer Active Jose Mcwilliams MD Active ZOFRAN ODT 4 MG ORAL TABLET DISINTEGRATING 1 po q6hr PRN Nausea ONDANSETRON 37750002877 No Longer Active Rich Rosales MD Active ZOFRAN 4 MG ORAL TABLET 1 tablet every 4 hours ONDANSETRON HCL 90658690452 No Longer Active Rich Rosales MD Activ e MUCINEX 600 MG ORAL TABLET EXTENDED RELEASE 12 HOUR Ta ke 1-2 tablets every 12 hours GUAIFENESIN 63544718271 No Longer Active Rich Rosales MD Active BACTRIM 400-80 MG ORAL TABLET take one po BID SULFAMETHOXAZOLE-TRIMETHOPRIM 89620405318 No Longer Active Abelardo HERNANDEZ Active AZITHROMYCIN 500 MG ORAL TABLET 1 PO q day x 6 days 20 03/02/23 AZITHROMYCIN 25335503399 No Longer Active Tin HERNANDEZ Activ e ZITHROMAX 250 MG ORAL TABLET 2 po today, then 1 po q days 2-5 20 10/03/08 AZITHROMYCIN 75555758585 No Longer Active Arie Casper MD Active ZITHROMAX 250 MG ORAL TABLET 2 po today, then 1 po q days 2-5 20 09/23/25 AZITHROMYCIN 01708169526 No Longer Active Arie Casper MD Active AMOXICILLIN 500 MG ORAL CAPSULE 1 tab by mouth 3 times daily 201 11/24/09 AMOXICILLIN 38991374912 No Longer Active Arie Casper MD Active BACTRIM DS 800-160 MG ORAL TABLET 1 tab by mouth twice daily 201 11/03/14 TRIMETHOPRIM-SULFAMETHOXAZOLE 97591996722 No Longer Active Fozia Casper MD Active AMOXICILLIN 500 MG ORAL TABLET take 1 tab po TID 08/05 AMOXICILLIN 11600091606 No Longer Active Arie Casper MD Acti ve BACTRIM DS 800-160 MG ORAL TABLET 1 tab by mouth twice daily 201 11/03/14 BACTRIM DS 800-160 MG ORAL TABLET 462452 TRIMETHOPRIM-SULFAMETHOXAZOLE Inactive MUCINEX 600 MG ORAL TABLET EXTENDED RELEASE 12 HOUR Ta ke 1-2 tablets every 12 hours MUCINEX 600 MG ORAL TABLET EXTENDED RELEA SE 12 HOUR GUAIFENESIN Inactive ZOFRAN 4 MG ORAL TABLET 1 tablet every 4 hours ZOFRAN 4 MG ORAL TABLET 387343 ONDANSETRON HCL Inactive ZOFRAN ODT 4 MG ORAL TABLET DISINTEGRATING 1 po q6hr PRN Nausea ZOFRAN ODT 4 MG ORAL TABLET DISINTEGRATING 395036 ONDAN SETRON Inactive CHLORASEPTIC MAX SORE THROAT 15-10 MG MOUTH/THROAT LOZENGE 1 every 2 hours prn CHLORASEPTIC MAX SORE THROAT 15-10 MG MOUTH/THROAT LOZENGE BENZOCAINE-MENTHOL Inactive COMTREX COLD/COUGH DAY/NITE MS 5-2-10-325 MG ORAL 2 caps deja ry 4 hours COMTREX COLD/COUGH DAY/NITE MS 5-2-10-325 MG ORA L [id number] Inactive [facility] TUSSIN COUGH/COLD CF 5-10-100 MG/5ML ORAL LIQUID 2 teasp oons every 4 hours [facility] TUSSIN COUGH/COLD CF 5-10-100 MG/5ML ORAL LI QUID [id number] Inactive IBUPROFEN 800 MG ORAL TABLET take one po Q 8 hours 201 02/01/16 IBUPROFEN 800 MG ORAL TABLET 943597 IBUPROFEN Inactive VITAMINS 0.8 MG ORAL TABLET take 1 tab po qday VITAMINS 0.8 MG ORAL TABLET [id number] Inactive TESSALON PERLES 100 MG ORAL CAPSULE 1 tablet by mouth 3 times da cory TESSALON PERLES 100 MG ORAL CAPSULE 815637 BENZONATATE Inactive AMOXICILLIN 500 MG ORAL CAPSULE 1 tab by mouth 3 times daily 201 02/21/05 AMOXICILLIN 500 MG ORAL CAPSULE 456400 AMOXICILLIN Inactive GUAIFENESIN-CODEINE 100-10 MG/5ML ORAL SYRUP 2 tsp every 6 hours prn GUAIFENESIN-CODEINE 100-10 MG/5ML ORAL SYRUP 903429 GUAIFENESIN-CODEINE Inactive VICKS DAYQUIL SEVERE COLD/FLU TABLET 1 tab every 6 hours prn 201 02/22/17 VICKS DAYQUIL SEVERE COLD/FLU TABLET PHENYLEPHRI [id number] TABS Inactive BACTRIM DS 800-160 MG ORAL TABLET 1 twice a day 05/30 BACTRIM DS 800-160 MG ORAL TABLET 996900 SULFAMETHOXAZOLE-TRIMETHOPRIM Inactiv e PROMETHAZINE HCL 25 MG ORAL TABLET 1 four times a day as nee ded for vomiting PROMETHAZINE HCL 25 MG ORAL TABLET 705237 PROMETHAZINE HCL Inactive ZYRTEC ALLERGY 10 MG ORAL CAPSULE 1 po qd ZYRTEC ALLERGY 10 MG ORAL CAPSULE CETIRIZINE HCL Inactive MACROBID 100 MG ORAL CAPSULE 1 cap by mouth twice daily MACROBID 100 MG ORAL CAPSULE 5213757 NITROFURANTOIN MONOHYD MACRO In active LOMOTIL 2.5-0.025 MG ORAL TABLET 1 to 2 four times a day as needed for diarrhea LOMOTIL 2.5-0.025 MG ORAL TABLET 7511706 DIPHENOXYLATE-ATROPINE Inactive CYCLOBENZAPRINE HCL 10 MG ORAL TABLET 1/2 - 1 tablet b y mouth three times daily as needed for muscle spasm/pain CYCLOBEN ZAPRINE HCL 10 MG ORAL TABLET 851772 CYCLOBENZAPRINE HCL Inactive AMOXICILLIN 500 MG ORAL TABLET 2 tabs twice a day for 10 days 20 07/09/11 AMOXICILLIN 500 MG ORAL TABLET 112101 AMOXICILLIN I nactive LOMOTIL 2.5-0.025 MG ORAL TABLET 1 to 2 four times a day as needed for diarrhea LOMOTIL 2.5-0.025 MG ORAL TABLET 6297286 DIPHENOXYLATE-ATROPINE Inactive ZOFRAN 4 MG ORAL TABLET 1 TAB PO Q 6 HRS PRN NAUSEA 07/10/15 ZOFRAN 4 MG ORAL TABLET 111543 ONDANSETRON HCL Inactive CITRATE OF MAGNESIA ORAL SOLUTION 1 bottle today for constipatio n CITRATE OF MAGNESIA ORAL SOLUTION 6445171 MAGNESIUM CITR ATE Inactive PROMETHAZINE HCL 12.5 MG ORAL TABLET 1 tablet by mouth every 6 hours as needed for nausea/vomiting PROMETHAZINE HCL 12.5 MG ORA L TABLET 524851 PROMETHAZINE HCL Inactive PREDNISONE 20 MG ORAL TABLET 1 tablet twice daily for 2 days, then 1 tablet once daily for 2 days PREDNISONE 20 MG ORAL TABLET 685793 PREDNISONE Inactive ALPRAZOLAM 0.25 MG ORAL TABLET 1 tablet by mouth every 8 hours as needed for stress ALPRAZOLAM 0.25 MG ORAL TABLET 700915 ALPRA ZOLAM Inactive FLONASE 50 MCG/ACT NASAL SUSPENSION 1 spray each nostr il twice daily for allergies and runny nose until gone FLON ASE 50 MCG/ACT NASAL SUSPENSION 0826751 FLUTICASONE PROPIONATE Inactive PREDNISONE 20 MG ORAL TABLET 1 tablet daily for airway inflammat ion PREDNISONE 20 MG ORAL TABLET 066948 PREDNISONE [place] ctive NAPROXEN 500 MG ORAL TABLET Take 1 tab BID NAPROXEN 500 MG ORAL TABLET 310094 NAPROXEN Inactive ZOLOFT 50 MG ORAL TABLET 1 tablet by mouth daily 12/08 ZOLOFT 50 MG ORAL TABLET 989163 SERTRALINE HCL Inactive LOMOTIL 2.5-0.025 MG ORAL TABLET 1 tab po four times a day as needed for diarrhea LOMOTIL 2.5-0.025 MG ORAL TABLET 3204594 DIPHENOXYLATE-ATROPINE Inactive CETIRIZINE HCL 10 MG ORAL TABLET 1 po qd PRN Allergies CETIRIZINE HCL 10 MG ORAL TABLET 3864518 CETIRIZINE HCL Inactiv e TUSSIONEX PENNKINETIC ER 10-8 MG/5ML ORAL SUSPENSION E XTENDED RELEASE 5ml po q12hr PRN Cough TUSSIONEX PENNKINETI C ER 10-8 MG/5ML ORAL SUSPENSION EXTENDED RELEASE HYDROCOD POLST-CHLORPHEN POLST I nactive NEXPLANON IMPLANT right arm subcutaneously NEXPLANON IMPLANT ETONOGESTREL IMPL Inactive PROTONIX 40 MG ORAL TABLET DELAYED RELEASE 1 po q a.m. PROTONIX 40 MG ORAL TABLET DELAYED RELEASE 294633 PANTOPRAZOLE SODI UM Inactive AMOXICILLIN 500 MG ORAL TABLET take 1 tab po TID 08/05 AMOXICILLIN 500 MG ORAL TABLET 910558 AMOXICILLIN Inactive AMOXICILLIN 500 MG ORAL CAPSULE 1 tab by mouth 3 times daily 201 11/24/09 AMOXICILLIN 500 MG ORAL CAPSULE 613827 AMOXICILLIN Inactive ZITHROMAX 250 MG ORAL TABLET 2 po today, then 1 po q days 2-5 20 09/23/25 ZITHROMAX 250 MG ORAL TABLET 084247 AZITHROMYCIN [place] ctive ZITHROMAX 250 MG ORAL TABLET 2 po today, then 1 po q days 2-5 20 10/03/08 ZITHROMAX 250 MG ORAL TABLET 027216 AZITHROMYCIN [place] ctive AZITHROMYCIN 500 MG ORAL TABLET 1 PO q day x 6 days 20 03/02/23 AZITHROMYCIN 500 MG ORAL TABLET 1479559 AZITHROMYCIN Inactive BACTRIM 400-80 MG ORAL TABLET take one po BID BACTRIM 400- 80 MG ORAL TABLET 640792 SULFAMETHOXAZOLE-TRIMETHOPRIM Inactive AZITHROMYCIN 250 MG ORAL TABLET 2 po qd x 1 day, then 1 po q d x 4 days AZITHROMYCIN 250 MG ORAL TABLET 503861 AZITHROMY ALLISON Inactive PREDNISONE 20 MG ORAL TABLET 2 tabs daily for 3 days, 1 tab daily for 3 days, 1/2 tab daily for 2 days PREDNISONE 20 MG ORAL T ABLET 207338 PREDNISONE Inactive ZITHROMAX 250 MG ORAL TABLET 2 po today, then 1 po q days 2-5 20 06/08/16 ZITHROMAX 250 MG ORAL TABLET 252136 AZITHROMYCIN [place] ctive FLAGYL 500 MG ORAL TABLET 1 tablet by mouth two times daily 2014 FLAGYL 500 MG ORAL TABLET 379385 METRONIDAZOLE Inacti ve AUGMENTIN 875-125 MG ORAL TABLET 1 tab by mouth twice daily with food AUGMENTIN 875-125 MG ORAL TABLET 670645 AMOXICIL ELSA-POT CLAVULANATE Inactive NAPROXEN 500 MG ORAL TABLET one tab PO BID NAPROXEN 500 MG ORAL TABLET 925577 NAPROXEN Inactive PREDNISONE 20 MG ORAL TABLET 2 tabs daily for 3 days, 1 tab daily for 3 days, 1/2 tab daily for 2 days PREDNISONE 20 MG ORAL T ABLET 380837 PREDNISONE Inactive AZITHROMYCIN 250 MG ORAL TABLET 2 po qd x 1 day, then 1 po q d x 4 days AZITHROMYCIN 250 MG ORAL TABLET 590989 AZITHROMY ALLISON Inactive PREDNISONE 20 MG ORAL TABLET 2 tabs daily for 3 days, 1 tab daily for 3 days, 1/2 tab daily for 2 days PREDNISONE 20 MG ORAL T ABLET 116652 PREDNISONE Inactive ZITHROMAX Z-EMIL 250 MG ORAL TABLET 2 today, then 1 daily for 4 d ays ZITHROMAX Z-EMIL 250 MG ORAL TABLET 863689 AZITHROMYCIN Inactive CEFDINIR 300 MG ORAL CAPSULE 1 po BID x 10 days 12/18 CEFDINIR 300 MG ORAL CAPSULE 234632 CEFDINIR Inactive CEFDINIR 300 MG ORAL CAPSULE 1 po BID x 10 days CEFDINIR 300 MG ORAL CAPSULE 20030127 CEFDINIR Inactive PREDNISONE 20 MG ORAL TABLET 2 tabs daily for 3 days, 1 tab daily for 3 days, 1/2 tab daily for 2 days PREDNISONE 20 MG ORAL T ABLET 151992 PREDNISONE Inactive BACTRIM DS 800-160 MG ORAL TABLET 1 tab by mouth twice daily 201 05/02/30 BACTRIM DS 800-160 MG ORAL TABLET 654582 TRIMETHOPRIM-SULFAMETHOXAZOLE Inactive ZITHROMAX Z-EMIL 250 MG ORAL TABLET 2 today, then 1 daily for 4 d ays ZITHROMAX Z-EMIL 250 MG ORAL TABLET 258563 AZITHROMYCIN Inactive Advance Directives Directive Description Start [...] Unit Range Description Lab Report: CBC, [place] [facility] [place] leukocyte count, blood 7.8 10^3/MM^3 10*3/mm3 4.6-10.2 mean corpuscular volume, RBC 83 fL 80-97 mean corpuscular hemoglobin, RBC 26.7 pg 27. 0-31.2 mean corpuscular hemoglobin concentration, RBC 32.2 G/DL % 31.8-35.4 red blood cell distribution width 13.3 % 11 .6-14.8 platelet count 263 10^3/MM^3 10*3/mm3 059-870 3891/11/09 erythrocyte (RBC) count 4.77 10^6/MM^3 10*6/mm3 3.80-5.8 0 hemoglobin, blood 12.7 g/dL 12.0-16.0 hematocrit, blood 39.5 % 37.0-47.0 Lab Report: Chlamydia/GC APTIMA/91306 - Lab chlamydia DNA probe NOT DETECTED NOT DETECTED Lab Report: Chlamydia/GC APTIMA/90530 - Microbiology Neisseria gonorrhoeae DNA probe NOT [...] Negative nitrite, urine, semiquantitative Negative Neg ative specific gravity, urine 1.025 1.000-1.030 appearance, urine Clear Clear urine color Yellow Colorless;Lightyellow;St raw;Yellow glucose, urine, semiquantitative Negative Neg ative ketones, urine, by test strip Negative Negati ve bilirubin, urine Negative Negative pH, urine, semiquantitative 7.0 5.0-8.5 urine color Yellow Colorless;Lightyellow;St raw;Yellow appearance, urine Clear Clear specific gravity, urine 1.020 1.000-1.030 pH, urine, semiquantitative 5.5 5.0-8.5 urobilinogen, urine, semiquantitative (dipstick) 0.2 Normal leukocyte esterase, urine, by dipstick Negative Negative nitrite, urine, semiquantitative Negative Neg ative glucose, urine, semiquantitative Negative Neg ative ketones, urine, by test strip Negative Negati ve bilirubin, urine Negative Negative Encounters Code Encounter Date Provider Facility CPT-58476 Level 3 Est. Patient 10:21:41 RN CVOR Arie mcqueen MD [facility] CPT-03427 Level 3 Est. Patient 11:35:15 RN CVOR Arie mcqueen MD [facility] CPT-90706 Level 3 Est. Patient 15:40:28 CDT Steve HALFTONE OPERATOR [facility] CPT-53216 Level 3 Est. Patient 16:40:36 CDT Arie mcqueen MD [facility] CPT-45634 Level 4 Est. Patient 15:29:22 RN CVOR Arie mcqueen MD [facility] CPT-71796 Level 3 Est. Patient 15:18:16 RN CVOR Jono black [facility] CPT-91022 Level 4 Est. Patient 12:08:40 RN CVOR Steve HALFTONE OPERATOR [facility] CPT-50176 Level 3 Est. Patient 09:24:42 CDT Steve [facility] CPT-09805 Level 3 Est. Patient 09:12:56 CDT Arie mcqueen MD [facility] CPT-10402 Level 3 Est. Patient 16:40:54 CDT Jose Zhong MD [facility] CPT-97940 Level 2 Est. Patient 13:01:13 CDT Steve [facility] CPT-29242 Level 3 Est. Patient 11:55:30 RN CVOR Jono black [facility] CPT-85159 Level 3 Est. Patient 09:52:36 RN CVOR Steve HALFTONE OPERATOR [facility] CPT-59618 Level 3 Est. Patient 16:25:33 RN CVOR Rich Rosales MD [facility] CPT-74533 Level 3 Est. Patient 20:33:55 CDT Arie mcqueen MD [facility] CPT-08930 Level 3 Est. Patient 14:18:20 CDT Rich Rosales MD [facility] CPT-84021 Level 4 Est. Patient 09:34:31 CDT Arie mcqueen MD [facility] CPT-64710 Level 3 Est. Patient 09:08:55 RN CVOR Liliana vincent MD [facility] CPT-27911 Level 3 Est. Patient 16:44:07 RN CVOR Arie mcqueen MD [facility] CPT-84977 Level 3 Est. Patient 10:44:27 CDT Arie mcqueen MD [facility] CPT-96332 Level 3 Est. Patient 08:55:41 CDT Jose Zhong MD [facility] CPT-10127 Level 3 Est. Patient 18:37:31 CDT Liliana vincent MD PhD [facility] CPT-14849 Level 3 Est. Patient 14:28:23 CDT Abelardo HERNANDEZ [facility] CPT-23382 Level 3 Est. Patient 15:18:13 RN CVOR Arie mcqueen MD [facility] CPT-43904 Level 3 Est. Patient 10:11:29 RN CVOR Arie mcqueen MD [facility] CPT-52948 Level 3 Est. Patient 10:55:57 RN CVOR Jono black DO [facility] CPT-54676 Level 3 Est. Patient 17:29:05 CDT Arie mcqueen MD [facility] Procedures Code Procedure Name Date Entry Date Standard Desc ription CPT-74439 Nexplanon Removal 15:40:28 CDT CPT-82961 Sono transvag pelvis non OB uterus ovari es cervix - XRAY USE ONLY 08:58:14 RN CVOR CPT-67920 UA w micro - LAB USE ONLY 16:04:56 RN CVOR 2015 CPT-65629 Wet Prep/GEN - LAB USE ONLY 16:04:56 RN CVOR 20 08/10/29 CPT-59818 First Vx - Ix admin via ID I M or jet injects without counseling by physician 16:57:10 CDT CPT-04297 Fluzone Preservative Free Intramuscular Suspension 16:57:10 CDT CPT-J0696 Rocephin 1000 mg (Ceftriaxone) 11:49:23 CDT CPT-J1040 Depo Medrol 80 mg (Methyl Prednisolone A cetate) 11:49:23 CDT CPT-J1100 Decadron 8mg (Dexamethasone) 11:49:23 CDT 2 CPT-40106 Abx/Therapy Injection 11:49:23 CDT CPT-78490 Abx/Therapy Injection 11:49:23 CDT CPT-35767 Abd compl w upright 09:07:26 RN CVOR CPT-22543 Ear Wash 16:12:47 RN CVOR CPT-OV Office Visit 11:12:01 CDT CPT-OV Office Visit 15:30:23 CDT CPT-00552 Sono pelvis non OB uterus ovaries cervix 15:50:44 CDT CPT-94368 Hand comp min 3V 16:42:32 CDT CPT-53772 Abd compl w upright 12:17:01 CDT CPT-63472 Nexplanon Placement 15:07:39 RN CVOR CPT-92549 Removal of IUD 15:07:39 RN CVOR CPT-92294 TB Tubersol 12:09:32 CDT CPT-21241 TB Tubersol 13:55:43 CDT
--- OUTSIDE RECORDS SUMMARY | 2020-03-03 07:29 | XMS REPORT | Clinical Summary ---
Author Author Admin, Diamante Marcelo Organization [facility] Address Unknown Phone Unavailable Allergies, Adverse [...] cute pharyngitis Nausea 787.02 Active Brii Larson [employer] Nausea alone URI 465.9 Active Jono Gagnon DO Acu te upper respiratory infections of unspecified site Allergic rhinitis 477.9 Active Brii Christianson PRN Allergic rhinitis, cause unspecified Abdominal pain, right lower quadrant 789.03 Active Jose Zhong MD Abdominal pain, right lower quadrant Urinary frequency 788.41 Inactive Roseann Crawford Urinary frequency Urinary frequency 788.41 Active 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, 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 Urinary frequency Sinusitis - acute 461.9 Active Brii Christianson PRN Acute sinusitis, unspecified Anxiety with depression 300.4 Active Glenn Larson [employer] Dysthymic disorder URI 465.9 Active Jono Gagnon DO Acu te upper respiratory infections of unspecified site Vaginal bleeding 623.8 Active Brii MARROQUIN RN Other specified noninflammatory disorders of vagina High risk sexual behavior V69.2 Active Arie Casper MD High-risk sexual behavior GERD 530.81 Active Arie Casper MD Esophageal reflux Encounter for surveillance of implantable subdermal contraceptiv e Active Brii Larson [employer] Vaginal bleeding 623.8 Active Arie Casper MD [...] 4 hours as needed for cough GUAIFENESIN-CODEINE 27412032987 Active Blaine Casper MD Active ZITHROMAX Z-EMIL 250 MG ORAL TABLET 2 today, then 1 daily for 4 d ays AZITHROMYCIN 19401217477 Active Arie Casper MD Ac tive PROTONIX 40 MG ORAL TABLET DELAYED RELEASE 1 po q a.m. PANTOPRAZOLE SODIUM 07468673033 No Longer Active Arie Casper MD Active BACTRIM DS 800-160 MG ORAL TABLET 1 tab by mouth twice daily 201 05/02/30 TRIMETHOPRIM-SULFAMETHOXAZOLE 85419045082 No Longer Active R [facility] Active NEXPLANON IMPLANT right arm subcutaneously ETONOGESTREL IMPL 59979320829 No Longer Active Brii Larson APRN Acti ve TUSSIONEX PENNKINETIC ER 10-8 MG/5ML ORAL SUSPENSION E XTENDED RELEASE 5ml po q12hr PRN Cough HYDROCOD POLST-CHLORPHEN POLST 5 0134960595 No Longer Active Brii Larson APRN Active CETIRIZINE HCL 10 MG ORAL TABLET 1 po qd PRN Allergies CETIRIZINE HCL 24544337420 No Longer Active Brii Larson APRN Ac tive PREDNISONE 20 MG ORAL TABLET 2 tabs daily for 3 days, 1 tab daily for 3 days, 1/2 tab daily for 2 days PREDNISONE 01241404471 No Longer Active Arie Casper MD Active LOMOTIL 2.5-0.025 MG ORAL TABLET 1 tab po four times a day as needed for diarrhea DIPHENOXYLATE-ATROPINE 83747673591 No Lo nger Active Arie Casper MD Active ZOLOFT 50 MG ORAL TABLET 1 tablet by mouth daily 12/08 SERTRALINE HCL 55611185810 No Longer Active Arie Casper MD Ac tive NAPROXEN 500 MG ORAL TABLET Take 1 tab BID NAPR OXEN 50237632089 No Longer Active Arie Casper MD Active CEFDINIR 300 MG ORAL CAPSULE 1 po BID x 10 days CEFDINIR 92769761717 No Longer Active Brii Larson APRN Active PREDNISONE 20 MG ORAL TABLET 1 tablet daily for airway inflammat ion PREDNISONE 78813666950 No Longer Active Brii Larson APRN Active CEFDINIR 300 MG ORAL CAPSULE 1 po BID x 10 days CEFDINIR 59106446528 No Longer Active Jono Gagnon DO Active FLONASE 50 MCG/ACT NASAL SUSPENSION 1 spray each nostr il twice daily for allergies and runny nose until gone FLUT ICASONE PROPIONATE 75967793190 No Longer Active Jono Gagnon DO Active ALPRAZOLAM 0.25 MG ORAL TABLET 1 tablet by mouth every 8 hours as needed for stress ALPRAZOLAM 73381362900 No Longer Active Jono Gagnon DO Active ZITHROMAX Z-EMIL 250 MG ORAL TABLET 2 today, then 1 daily for 4 d ays AZITHROMYCIN 17305394438 No Longer Active Arie Casper MD Active PREDNISONE 20 MG ORAL TABLET 2 tabs daily for 3 days, 1 tab daily for 3 days, 1/2 tab daily for 2 days PREDNISONE 97500492108 No Longer Active Brii Larson APRN Active PREDNISONE 20 MG ORAL TABLET 1 tablet twice daily for 2 days, then 1 tablet once daily for 2 days PREDNISONE 65000896437 No Longer Active Brii Larson APRN Active PROMETHAZINE HCL 12.5 MG ORAL TABLET 1 tablet by mouth every 6 hours as needed for nausea/vomiting PROMETHAZINE HCL 68043583003 No L onger Active Jono Gagnon DO Active CITRATE OF MAGNESIA ORAL SOLUTION 1 bottle today for constipatio n MAGNESIUM CITRATE 46218544407 No Longer Active Jono Gagnon DO Active ZOFRAN 4 MG ORAL TABLET 1 TAB PO Q 6 HRS PRN NAUSEA 20 07/10/15 ONDANSETRON HCL 75114355730 No Longer Active Brii Larson APRN A ctive LOMOTIL 2.5-0.025 MG ORAL TABLET 1 to 2 four times a day as needed for diarrhea DIPHENOXYLATE-ATROPINE 45937936094 No Longer Active January Larson APRN Active AMOXICILLIN 500 MG ORAL TABLET 2 tabs twice a day for 10 days 20 07/09/11 AMOXICILLIN 81766394379 No Longer Active Brii Larson APRN Active CYCLOBENZAPRINE HCL 10 MG ORAL TABLET 1/2 - 1 tablet b y mouth three times daily as needed for muscle spasm/pain CYCLOBENZAPRINE HCL 31549094864 No Longer Active Arie Casper MD Active LOMOTIL 2.5-0.025 MG ORAL TABLET 1 to 2 four times a day as needed for diarrhea DIPHENOXYLATE-ATROPINE 46474431626 No Longer Active Fozia Casper MD Active MACROBID 100 MG ORAL CAPSULE 1 cap by mouth twice daily NITROFURANTOIN MONOHYD MACRO 44933099198 No Longer Active Arie Casper MD Active ZYRTEC ALLERGY 10 MG ORAL CAPSULE 1 po qd CE TIRIZINE HCL 82102526747 No Longer Active Arie Casper MD Active AZITHROMYCIN 250 MG ORAL TABLET 2 po qd x 1 day, then 1 po q d x 4 days AZITHROMYCIN 30463468792 No Longer Active Jillina Fra naomi [employer] Active PREDNISONE 20 MG ORAL TABLET 2 tabs daily for 3 days, 1 tab daily for 3 days, 1/2 tab daily for 2 days PREDNISONE 22476228475 No Longer Active Jillina Fradeepl [employer] Active PROMETHAZINE HCL 25 MG ORAL TABLET 1 four times a day as nee ded for vomiting PROMETHAZINE HCL 20340261778 No Longer Active Myrna Roberto MD Active BACTRIM DS 800-160 MG ORAL TABLET 1 twice a day 05/30 SULFAMETHOXAZOLE-TRIMETHOPRIM 44166279714 No Longer Active Myrna Roberto MD Active VICKS DAYQUIL SEVERE COLD/FLU TABLET 1 tab every 6 hours prn 201 02/22/17 [id number] TABS 30121900579 No Longer Active Chris Roberto MD Active GUAIFENESIN-CODEINE 100-10 MG/5ML ORAL SYRUP 2 tsp every 6 hours prn GUAIFENESIN-CODEINE 42309813434 No Longer Active Myrna Roberto MD Active NAPROXEN 500 MG ORAL TABLET one tab PO BID NAPR OXEN 14882723342 No Longer Active Myrna Roberto MD Active AUGMENTIN 875-125 MG ORAL TABLET 1 tab by mouth twice daily with food AMOXICILLIN-POT CLAVULANATE 84254640939 No Longer Act zaid Liliana Estrada MD PhD Active AMOXICILLIN 500 MG ORAL CAPSULE 1 tab by mouth 3 times daily 201 02/21/05 AMOXICILLIN 52395986931 No Longer Active Liliana Estrada MD PhD Active TESSALON PERLES 100 MG ORAL CAPSULE 1 tablet by mouth 3 times da cory BENZONATATE 24582553651 No Longer Active Liliana Estrada MD PhD Active FLAGYL 500 MG ORAL TABLET 1 tablet by mouth two times daily 2014 METRONIDAZOLE 29973701699 No Longer Active Nilam Doran tive ZITHROMAX 250 MG ORAL TABLET 2 po today, then 1 po q days 2-5 20 06/08/16 AZITHROMYCIN 81661088784 No Longer Active Arie Casper MD Active VITAMINS 0.8 MG ORAL TABLET take 1 tab po qday [id number] 97620464004 No Longer Active Arie Casper MD Active IBUPROFEN 800 MG ORAL TABLET take one po Q 8 hours 201 02/01/16 IBUPROFEN 38547731980 No Longer Active Arie Casper MD Acti ve [facility] TUSSIN COUGH/COLD CF 5-10-100 MG/5ML ORAL LIQUID 2 teasp oons every 4 hours [id number] 81862969278 No Longer Active Blaine Casper MD Active COMTREX COLD/COUGH DAY/NITE MS 5-2-10-325 MG ORAL 2 caps deja ry 4 hours [id number] 18833623493 No Longer Active Landon Casper MD Active CHLORASEPTIC MAX SORE THROAT 15-10 MG MOUTH/THROAT LOZENGE 1 every 2 hours prn BENZOCAINE-MENTHOL 82731521883 No Longer Active Arie Casper MD Active PREDNISONE 20 MG ORAL TABLET 2 tabs daily for 3 days, 1 tab daily for 3 days, 1/2 tab daily for 2 days PREDNISONE 03875627958 No Longer Active Jose Zhong MD Active AZITHROMYCIN 250 MG ORAL TABLET 2 po qd x 1 day, then 1 po q d x 4 days AZITHROMYCIN 72626595739 No Longer Active Jose Mcwilliams MD Active ZOFRAN ODT 4 MG ORAL TABLET DISINTEGRATING 1 po q6hr PRN Nausea ONDANSETRON 17214312797 No Longer Active Rich Rosales MD Active ZOFRAN 4 MG ORAL TABLET 1 tablet every 4 hours ONDANSETRON HCL 09494666110 No Longer Active Rich Rosales MD Activ e MUCINEX 600 MG ORAL TABLET EXTENDED RELEASE 12 HOUR Ta ke 1-2 tablets every 12 hours GUAIFENESIN 84111287760 No Longer Active Rich Rosales MD Active BACTRIM 400-80 MG ORAL TABLET take one po BID SULFAMETHOXAZOLE-TRIMETHOPRIM 89467224757 No Longer Active Abelardo HERNANDEZ Active AZITHROMYCIN 500 MG ORAL TABLET 1 PO q day x 6 days 20 03/02/23 AZITHROMYCIN 10449394260 No Longer Active Tin HERNANDEZ Activ e ZITHROMAX 250 MG ORAL TABLET 2 po today, then 1 po q days 2-5 20 10/03/08 AZITHROMYCIN 43012051625 No Longer Active Arie Casper MD Active ZITHROMAX 250 MG ORAL TABLET 2 po today, then 1 po q days 2-5 20 09/23/25 AZITHROMYCIN 01874500268 No Longer Active Arie Casper MD Active AMOXICILLIN 500 MG ORAL CAPSULE 1 tab by mouth 3 times daily 201 11/24/09 AMOXICILLIN 38566364081 No Longer Active Arie Casper MD Active BACTRIM DS 800-160 MG ORAL TABLET 1 tab by mouth twice daily 201 11/03/14 TRIMETHOPRIM-SULFAMETHOXAZOLE 78831975556 No Longer Active Fozia Casper MD Active AMOXICILLIN 500 MG ORAL TABLET take 1 tab po TID 08/05 AMOXICILLIN 75679508253 No Longer Active Arie Casper MD Acti ve BACTRIM DS 800-160 MG ORAL TABLET 1 tab by mouth twice daily 201 11/03/14 BACTRIM DS 800-160 MG ORAL TABLET 949690 TRIMETHOPRIM-SULFAMETHOXAZOLE Inactive MUCINEX 600 MG ORAL TABLET EXTENDED RELEASE 12 HOUR Ta ke 1-2 tablets every 12 hours MUCINEX 600 MG ORAL TABLET EXTENDED RELEA SE 12 HOUR GUAIFENESIN Inactive ZOFRAN 4 MG ORAL TABLET 1 tablet every 4 hours ZOFRAN 4 MG ORAL TABLET 030946 ONDANSETRON HCL Inactive ZOFRAN ODT 4 MG ORAL TABLET DISINTEGRATING 1 po q6hr PRN Nausea ZOFRAN ODT 4 MG ORAL TABLET DISINTEGRATING 594745 ONDAN SETRON Inactive CHLORASEPTIC MAX SORE THROAT 15-10 MG MOUTH/THROAT LOZENGE 1 every 2 hours prn CHLORASEPTIC MAX SORE THROAT 15-10 MG MOUTH/THROAT LOZENGE BENZOCAINE-MENTHOL Inactive COMTREX COLD/COUGH DAY/NITE MS 5-2-10-325 MG ORAL 2 caps deja ry 4 hours COMTREX COLD/COUGH DAY/NITE MS 5-2-10-325 MG ORA L [id number] Inactive [facility] TUSSIN COUGH/COLD CF 5-10-100 MG/5ML ORAL LIQUID 2 teasp oons every 4 hours [facility] TUSSIN COUGH/COLD CF 5-10-100 MG/5ML ORAL LI QUID [id number] Inactive IBUPROFEN 800 MG ORAL TABLET take one po Q 8 hours 201 02/01/16 IBUPROFEN 800 MG ORAL TABLET IBUPROFEN Inactive VITAMINS 0.8 MG ORAL TABLET take 1 tab po qday VITAMINS 0.8 MG ORAL TABLET [id number] E-FA Inactive TESSALON PERLES 100 MG ORAL CAPSULE 1 tablet by mouth 3 times da cory TESSALON PERLES 100 MG ORAL CAPSULE 446576 BENZONATATE Inactive AMOXICILLIN 500 MG ORAL CAPSULE 1 tab by mouth 3 times daily 201 02/21/05 AMOXICILLIN 500 MG ORAL CAPSULE 147243 AMOXICILLIN Inactive GUAIFENESIN-CODEINE 100-10 MG/5ML ORAL SYRUP 2 tsp every 6 hours prn GUAIFENESIN-CODEINE 100-10 MG/5ML ORAL SYRUP 841940 GUAIFENESIN-CODEINE Inactive VICKS DAYQUIL SEVERE COLD/FLU TABLET 1 tab every 6 hours prn 201 02/22/17 VICKS DAYQUIL SEVERE COLD/FLU TABLET PHENYLEPHRI [id number] TABS Inactive BACTRIM DS 800-160 MG ORAL TABLET 1 twice a day 05/30 BACTRIM DS 800-160 MG ORAL TABLET 270198 SULFAMETHOXAZOLE-TRIMETHOPRIM Inactiv e PROMETHAZINE HCL 25 MG ORAL TABLET 1 four times a day as nee ded for vomiting PROMETHAZINE HCL 25 MG ORAL TABLET 978353 PROMETHAZINE HCL Inactive ZYRTEC ALLERGY 10 MG ORAL CAPSULE 1 po qd ZYRTEC ALLERGY 10 MG ORAL CAPSULE CETIRIZINE HCL Inactive MACROBID 100 MG ORAL CAPSULE 1 cap by mouth twice daily MACROBID 100 MG ORAL CAPSULE 2456332 NITROFURANTOIN MONOHYD MACRO In active LOMOTIL 2.5-0.025 MG ORAL TABLET 1 to 2 four times a day as needed for diarrhea LOMOTIL 2.5-0.025 MG ORAL TABLET 5173289 DIPHENOXYLATE-ATROPINE Inactive CYCLOBENZAPRINE HCL 10 MG ORAL TABLET 1/2 - 1 tablet b y mouth three times daily as needed for muscle spasm/pain CYCLOBEN ZAPRINE HCL 10 MG ORAL TABLET 934907 CYCLOBENZAPRINE HCL Inactive AMOXICILLIN 500 MG ORAL TABLET 2 tabs twice a day for 10 days 07/09/11 AMOXICILLIN 500 MG ORAL TABLET 112833 AMOXICILLIN I nactive LOMOTIL 2.5-0.025 MG ORAL TABLET 1 to 2 four times a day as needed for diarrhea LOMOTIL 2.5-0.025 MG ORAL TABLET 2207005 DIPHENOXYLATE-ATROPINE Inactive ZOFRAN 4 MG ORAL TABLET 1 TAB PO Q 6 HRS PRN NAUSEA 07/10/15 ZOFRAN 4 MG ORAL TABLET 953664 ONDANSETRON HCL Inactive CITRATE OF MAGNESIA ORAL SOLUTION 1 bottle today for constipatio n CITRATE OF MAGNESIA ORAL SOLUTION 7581834 MAGNESIUM CITR ATE Inactive PROMETHAZINE HCL 12.5 MG ORAL TABLET 1 tablet by mouth every 6 hours as needed for nausea/vomiting PROMETHAZINE HCL 12.5 MG ORA L TABLET 084436 PROMETHAZINE HCL Inactive PREDNISONE 20 MG ORAL TABLET 1 tablet twice daily for 2 days, then 1 tablet once daily for 2 days PREDNISONE 20 MG ORAL TABLET 400931 PREDNISONE Inactive ALPRAZOLAM 0.25 MG ORAL TABLET 1 tablet by mouth every 8 hours as needed for stress ALPRAZOLAM 0.25 MG ORAL TABLET 342744 ALPRA ZOLAM Inactive FLONASE 50 MCG/ACT NASAL SUSPENSION 1 spray each nostr il twice daily for allergies and runny nose until gone FLON ASE 50 MCG/ACT NASAL SUSPENSION 4920433 FLUTICASONE PROPIONATE Inactive PREDNISONE 20 MG ORAL TABLET 1 tablet daily for airway inflammat ion PREDNISONE 20 MG ORAL TABLET 419931 PREDNISONE Arlen ctive NAPROXEN 500 MG ORAL TABLET Take 1 tab BID NAPROXEN 500 MG ORAL TABLET 394794 NAPROXEN Inactive ZOLOFT 50 MG ORAL TABLET 1 tablet by mouth daily 12/08 ZOLOFT 50 MG ORAL TABLET 049784 SERTRALINE HCL Inactive LOMOTIL 2.5-0.025 MG ORAL TABLET 1 tab po four times a day as needed for diarrhea LOMOTIL 2.5-0.025 MG ORAL TABLET 6139329 DIPHENOXYLATE-ATROPINE Inactive CETIRIZINE HCL 10 MG ORAL TABLET 1 po qd PRN Allergies CETIRIZINE HCL 10 MG ORAL TABLET 7844336 CETIRIZINE HCL Inactiv e TUSSIONEX PENNKINETIC ER 10-8 MG/5ML ORAL SUSPENSION E XTENDED RELEASE 5ml po q12hr PRN Cough TUSSIONEX PENNKINETI C ER 10-8 MG/5ML ORAL SUSPENSION EXTENDED RELEASE HYDROCOD POLST-CHLORPHEN POLST I nactive NEXPLANON IMPLANT right arm subcutaneously NEXPLANON IMPLANT ETONOGESTREL IMPL Inactive PROTONIX 40 MG ORAL TABLET DELAYED RELEASE 1 po q a.m. PROTONIX 40 MG ORAL TABLET DELAYED RELEASE 961691 PANTOPRAZOLE SODI UM Inactive AMOXICILLIN 500 MG ORAL TABLET take 1 tab po TID 08/05 AMOXICILLIN 500 MG ORAL TABLET 644435 AMOXICILLIN Inactive AMOXICILLIN 500 MG ORAL CAPSULE 1 tab by mouth 3 times daily 201 11/24/09 AMOXICILLIN 500 MG ORAL CAPSULE 464865 AMOXICILLIN Inactive ZITHROMAX 250 MG ORAL TABLET 2 po today, then 1 po q days 2-5 20 09/23/25 ZITHROMAX 250 MG ORAL TABLET 995729 AZITHROMYCIN Arlen ctive ZITHROMAX 250 MG ORAL TABLET 2 po today, then 1 po q days 2-5 20 10/03/08 ZITHROMAX 250 MG ORAL TABLET 686023 AZITHROMYCIN Arlen ctive AZITHROMYCIN 500 MG ORAL TABLET 1 PO q day x 6 days 20 03/02/23 AZITHROMYCIN 500 MG ORAL TABLET 9425502 AZITHROMYCIN Inactive BACTRIM 400-80 MG ORAL TABLET take one po BID BACTRIM 400- 80 MG ORAL TABLET 795638 SULFAMETHOXAZOLE-TRIMETHOPRIM Inactive AZITHROMYCIN 250 MG ORAL TABLET 2 po qd x 1 day, then 1 po q d x 4 days AZITHROMYCIN 250 MG ORAL TABLET 083143 AZITHROMY ALLISON Inactive PREDNISONE 20 MG ORAL TABLET 2 tabs daily for 3 days, 1 tab daily for 3 days, 1/2 tab daily for 2 days PREDNISONE 20 MG ORAL T ABLET 949459 PREDNISONE Inactive ZITHROMAX 250 MG ORAL TABLET 2 po today, then 1 po q days 2-5 20 06/08/16 ZITHROMAX 250 MG ORAL TABLET 045216 AZITHROMYCIN Arlen ctive FLAGYL 500 MG ORAL TABLET 1 tablet by mouth two times daily 2014 FLAGYL 500 MG ORAL TABLET 802302 METRONIDAZOLE Inacti ve AUGMENTIN 875-125 MG ORAL TABLET 1 tab by mouth twice daily with food AUGMENTIN 875-125 MG ORAL TABLET 470075 AMOXICIL ELSA-POT CLAVULANATE Inactive NAPROXEN 500 MG ORAL TABLET one tab PO BID NAPROXEN 500 MG ORAL TABLET 577276 NAPROXEN Inactive PREDNISONE 20 MG ORAL TABLET 2 tabs daily for 3 days, 1 tab daily for 3 days, 1/2 tab daily for 2 days PREDNISONE 20 MG ORAL T ABLET 158475 PREDNISONE Inactive AZITHROMYCIN 250 MG ORAL TABLET 2 po qd x 1 day, then 1 po q d x 4 days AZITHROMYCIN 250 MG ORAL TABLET 043142 AZITHROMY ALLISON Inactive PREDNISONE 20 MG ORAL TABLET 2 tabs daily for 3 days, 1 tab daily for 3 days, 1/2 tab daily for 2 days PREDNISONE 20 MG ORAL T ABLET 436490 PREDNISONE Inactive ZITHROMAX Z-EMIL 250 MG ORAL TABLET 2 today, then 1 daily for 4 d ays ZITHROMAX Z-EMIL 250 MG ORAL TABLET 621764 AZITHROMYCIN Inactive CEFDINIR 300 MG ORAL CAPSULE 1 po BID x 10 days 12/18 CEFDINIR 300 MG ORAL CAPSULE 809706 CEFDINIR Inactive CEFDINIR 300 MG ORAL CAPSULE 1 po BID x 10 days CEFDINIR 300 MG ORAL CAPSULE 20030127 CEFDINIR Inactive PREDNISONE 20 MG ORAL TABLET 2 tabs daily for 3 days, 1 tab daily for 3 days, 1/2 tab daily for 2 days PREDNISONE 20 MG ORAL T ABLET 725111 PREDNISONE Inactive BACTRIM DS 800-160 MG ORAL TABLET 1 tab by mouth twice daily 201 05/02/30 BACTRIM DS 800-160 MG ORAL TABLET 435150 TRIMETHOPRIM-SULFAMETHOXAZOLE Inactive Advance Directives Directive Description Start [...] 263 10^3/MM^3 10*3/mm3 142-424 Lab Report: Chlamydia/GC APTIMA/97071 - Lab chlamydia DNA probe NOT DETECTED NOT DETECTED Lab Report: Chlamydia/GC APTIMA/93503 - Microbiology Neisseria gonorrhoeae DNA probe NOT DETECTED NO T DETECTED Lab Report: UADIP W/MICRO, AUTO - Chemis try protein, total urine random Negative mg/dL Negative RBC, urine, dipstick Negative Negative RBC, urine, dipstick 1+ Negative protein, total urine random Negative mg/dL Negative Lab Report: UADIP W/MICRO, AUTO - Urinal ysis glucose, urine, semiquantitative Negative Neg ative glucose, urine, semiquantitative Negative Neg ative ketones, urine, by test strip Negative Negati ve bilirubin, urine Negative Negative appearance, urine Clear Clear specific gravity, urine 1.020 1.000-1.030 pH, urine, semiquantitative 5.5 5.0-8.5 urobilinogen, urine, semiquantitative (dipstick) 0.2 E .U./dL Normal leukocyte esterase, urine, by dipstick 1+ Negative nitrite, urine, semiquantitative Negative Neg ative urobilinogen, urine, semiquantitative (dipstick) 0.2 Normal leukocyte esterase, urine, by dipstick Negative Negative nitrite, urine, semiquantitative Negative Neg ative pH, urine, semiquantitative 7.0 5.0-8.5 specific gravity, urine 1.025 1.000-1.030 appearance, urine Clear Clear urine color Yellow Colorless;Lightyellow;St raw;Yellow urine color Yellow Colorless;Lightyellow;St raw;Yellow ketones, urine, by test strip Negative Negati ve bilirubin, urine Negative Negative Encounters Code Encounter Date Provider Facility CPT-83269 Level 3 Est. Patient 10:21:41 FOOD RUNNER Arie mcqueen MD [facility] CPT-77964 Level 3 Est. Patient 11:35:15 FOOD RUNNER Arie mcqueen MD [facility] CPT-91317 Level 3 Est. Patient 15:40:28 CDT Brii And erson [employer] [facility] CPT-43435 Level 3 Est. Patient 16:40:36 CDT Arie mcqueen MD [facility] CPT-18157 Level 4 Est. Patient 15:29:22 FOOD RUNNER Arie mcqueen MD [facility] CPT-04657 Level 3 Est. Patient 15:18:16 FOOD RUNNER Jono black [facility] CPT-20825 Level 4 Est. Patient 12:08:40 FOOD RUNNER Brii And erson [facility] CPT-71665 Level 3 Est. Patient 09:24:42 CDT Brii La erson [facility] CPT-66772 Level 3 Est. Patient 09:12:56 CDT Arie mcqueen MD [facility] CPT-10007 Level 3 Est. Patient 16:40:54 CDT Jose Zhong MD [facility] CPT-70625 Level 2 Est. Patient 13:01:13 CDT Brii La erson [facility] CPT-04154 Level 3 Est. Patient 11:55:30 FOOD RUNNER Jono black [facility] CPT-97610 Level 3 Est. Patient 09:52:36 FOOD RUNNER Steve [employer] [facility] CPT-17763 Level 3 Est. Patient 16:25:33 FOOD RUNNER Rich Rosales MD [facility] CPT-10526 Level 3 Est. Patient 20:33:55 CDT Arie mcqueen MD [facility] CPT-31537 Level 3 Est. Patient 14:18:20 CDT Rich Rosales MD [facility] CPT-64701 Level 4 Est. Patient 09:34:31 CDT Arie mcqueen MD [facility] CPT-51014 Level 3 Est. Patient 09:08:55 FOOD RUNNER Liliana vincent MD PhD [facility] CPT-97422 Level 3 Est. Patient 16:44:07 FOOD RUNNER Arie mcqueen MD [facility] CPT-58992 Level 3 Est. Patient 10:44:27 CDT Arie mcqueen MD [facility] CPT-95524 Level 3 Est. Patient 08:55:41 CDT Jose Zhong MD [facility] CPT-86410 Level 3 Est. Patient 18:37:31 CDT Liliana vincent MD [facility] CPT-70497 Level 3 Est. Patient 14:28:23 CDT Abelardo HERNANDEZ [facility] CPT-19800 Level 3 Est. Patient 15:18:13 FOOD RUNNER Arie mcqueen MD [facility] CPT-57392 Level 3 Est. Patient 10:11:29 FOOD RUNNER Arie mcqueen MD [facility] CPT-41824 Level 3 Est. Patient 10:55:57 FOOD RUNNER Jono black DO [facility] CPT-99499 Level 3 Est. Patient 17:29:05 CDT Arie mcqueen MD [facility] Procedures Code Procedure Name Date Entry Date Standard Desc ription CPT-59690 Nexplanon Removal 15:40:28 CDT CPT-21697 Sono transvag pelvis non OB uterus ovari es cervix - XRAY USE ONLY 08:58:14 FOOD RUNNER CPT-46934 UA w micro - LAB USE ONLY 16:04:56 FOOD RUNNER 2015 CPT-96449 Wet Prep/GEN - LAB USE ONLY 16:04:56 FOOD RUNNER 20 08/10/29 CPT-68741 First Vx - Ix admin via ID I M or jet injects without counseling by physician 16:57:10 CDT CPT-40835 Fluzone Preservative Free Intramuscular Suspension 16:57:10 CDT CPT-J0696 Rocephin 1000 mg (Ceftriaxone) 11:49:23 CDT CPT-J1040 Depo Medrol 80 mg (Methyl Prednisolone A cetate) 11:49:23 CDT CPT-J1100 Decadron 8mg (Dexamethasone) 11:49:23 CDT 2 CPT-48225 Abx/Therapy Injection 11:49:23 CDT CPT-64927 Abx/Therapy Injection 11:49:23 CDT CPT-69966 Abd compl w upright 09:07:26 FOOD RUNNER CPT-89794 Ear Wash 16:12:47 FOOD RUNNER CPT-OV Office Visit 11:12:01 CDT CPT-OV Office Visit 15:30:23 CDT CPT-26711 Sono pelvis non OB uterus ovaries cervix 15:50:44 CDT CPT-24164 Hand comp min 3V 16:42:32 CDT CPT-62307 Abd compl w upright 12:17:01 CDT CPT-46639 Nexplanon Placement 15:07:39 FOOD RUNNER CPT-19867 Removal of IUD 15:07:39 FOOD RUNNER CPT-73876 TB Tubersol 12:09:32 CDT CPT-55358 TB Tubersol 13:55:43 CDT
--- OUTSIDE RECORDS SUMMARY | 2020-03-03 07:29 | XMS REPORT | Clinical Summary ---
Author Author Admin, Diamante Marcelo Organization [facility] Address Unknown Phone Unavailable Allergies, Adverse [...] implantable subdermal contraceptiv e Active Brii Russ [employer] Vaginal bleeding 623.8 Active Arie Casper MD Other specified noninflammatory disorders of vagina Influenza like illness 487.1 Active Jose Mcwilliams MD Influenza with other respiratory manifestations Sinusitis 473.9 Active Jessica Heaton [employer] Unspecified sinusitis (chronic) BREAST CANCER ICD-V16.3 Inactive [...] q12hr PRN Cough HYDROCOD POLST-CHLORPHEN POLST 5 [id number] No Longer Active Myrna Roberto MD Active ZITHROMAX Z-EMIL 250 MG TABS Take two tablets today and then 1 tablet daily for 4 days AZITHROMYCIN 95204981868 No Longer Active Flaco Rosales MD Active GUAIFENESIN DM 400-20 MG ORAL TABLET 1 pill by mouth t wice daily, if needed for cough DEXTROMETHORPHAN-GUAIFENESIN 38590073603 No Longer Active Rich Rosales MD Active CEFDINIR 300 MG ORAL CAPSULE 1 po BID x 10 days CEFDINIR 73467585183 No Longer Active Jessica Heaton APRN Active CHERATUSSIN AC 100-10 MG/5ML ORAL SYRUP 1 tsp by mouth every 4 hours as needed for cough GUAIFENESIN-CODEINE 14968203226 No Longe r Active Jessica Heaton APRN Active TAMIFLU 75 MG ORAL CAPSULE 1 po BID x 5 days 0 OSELTAMIVIR PHOSPHATE 34347938696 No Longer Active Jose Zhong MD Activ e ZITHROMAX Z-EMIL 250 MG ORAL TABLET 2 today, then 1 daily for 4 d ays AZITHROMYCIN 08378636009 No Longer Active Arie Casper MD Active PROTONIX 40 MG ORAL TABLET DELAYED RELEASE 1 po q a.m. PANTOPRAZOLE SODIUM 83082001286 No Longer Active Arie Casper MD Active BACTRIM DS 800-160 MG ORAL TABLET 1 tab by mouth twice daily 201 05/02/30 TRIMETHOPRIM-SULFAMETHOXAZOLE 81461184318 No Longer Active R [facility] Ty Active NEXPLANON IMPLANT right arm subcutaneously ETONOGESTREL IMPL 15692880205 No Longer Active Brii Russ APRN Active TUSSIONEX PENNKINETIC ER 10-8 MG/5ML ORAL SUSPENSION E XTENDED RELEASE 5ml po q12hr PRN Cough HYDROCOD POLST-CHLORPHEN POLST 5 9657132036 No Longer Active Brii Russ [employer] Active CETIRIZINE HCL 10 MG ORAL TABLET 1 po qd PRN Allergies CETIRIZINE HCL 26665346876 No Longer Active Brii Russ APRN Activ e PREDNISONE 20 MG ORAL TABLET 2 tabs daily for 3 days, 1 tab daily for 3 days, 1/2 tab daily for 2 days PREDNISONE 73164851754 No Longer Active Arie Casper MD Active LOMOTIL 2.5-0.025 MG ORAL TABLET 1 tab po four times a day as needed for diarrhea DIPHENOXYLATE-ATROPINE 81788096826 No Lo nger Active Arie Casper MD Active ZOLOFT 50 MG ORAL TABLET 1 tablet by mouth daily 12/08 SERTRALINE HCL 56990874564 No Longer Active Arie Casper MD Ac tive NAPROXEN 500 MG ORAL TABLET Take 1 tab BID NAPR OXEN 34582225538 No Longer Active Arie Casper MD Active CEFDINIR 300 MG ORAL CAPSULE 1 po BID x 10 days CEFDINIR 29280255130 No Longer Active Brii Russ APRN Active PREDNISONE 20 MG ORAL TABLET 1 tablet daily for airway inflammat ion PREDNISONE 10604431204 No Longer Active Brii Russ APRN A ctive CEFDINIR 300 MG ORAL CAPSULE 1 po BID x 10 days CEFDINIR 43371671701 No Longer Active Jono Gagnon DO Active FLONASE 50 MCG/ACT NASAL SUSPENSION 1 spray each nostr il twice daily for allergies and runny nose until gone FLUT ICASONE PROPIONATE 67935039600 No Longer Active Jono Gagnon DO Active ALPRAZOLAM 0.25 MG ORAL TABLET 1 tablet by mouth every 8 hours as needed for stress ALPRAZOLAM 60176698364 No Longer Active Jono Gagnon DO Active ZITHROMAX Z-EMIL 250 MG ORAL TABLET 2 today, then 1 daily for 4 d ays AZITHROMYCIN 80494260858 No Longer Active Arie Casper MD Active PREDNISONE 20 MG ORAL TABLET 2 tabs daily for 3 days, 1 tab daily for 3 days, 1/2 tab daily for 2 days PREDNISONE 69604210981 No Longer Active Brii Russ APRN Active PREDNISONE 20 MG ORAL TABLET 1 tablet twice daily for 2 days, then 1 tablet once daily for 2 days PREDNISONE 52336247363 No Longer Active Brii Russ APRN Active PROMETHAZINE HCL 12.5 MG ORAL TABLET 1 tablet by mouth every 6 hours as needed for nausea/vomiting PROMETHAZINE HCL 87161222041 No L onger Active Jono Gagnon DO Active CITRATE OF MAGNESIA ORAL SOLUTION 1 bottle today for constipatio n MAGNESIUM CITRATE 77316814359 No Longer Active Jono Gagnon DO Active ZOFRAN 4 MG ORAL TABLET 1 TAB PO Q 6 HRS PRN NAUSEA 07/10/15 ONDANSETRON HCL 54972542969 No Longer Active Brii Russ APRN Acti ve LOMOTIL 2.5-0.025 MG ORAL TABLET 1 to 2 four times a day as needed for diarrhea DIPHENOXYLATE-ATROPINE 96894555170 No Longer Active January Russ APRN Active AMOXICILLIN 500 MG ORAL TABLET 2 tabs twice a day for 10 days 20 07/09/11 AMOXICILLIN 76165029305 No Longer Active Brii Russ APRN Active CYCLOBENZAPRINE HCL 10 MG ORAL TABLET 1/2 - 1 tablet b y mouth three times daily as needed for muscle spasm/pain CYCLOBENZAPRINE HCL 15537764591 No Longer Active Arie Casper MD Active LOMOTIL 2.5-0.025 MG ORAL TABLET 1 to 2 four times a day as needed for diarrhea DIPHENOXYLATE-ATROPINE 06083420218 No Longer Active Fozia Casper MD Active MACROBID 100 MG ORAL CAPSULE 1 cap by mouth twice daily NITROFURANTOIN MONOHYD MACRO 78943166219 No Longer Active Arie Casper MD Active ZYRTEC ALLERGY 10 MG ORAL CAPSULE 1 po qd CE TIRIZINE HCL 48999922100 No Longer Active Arie Casper MD Active AZITHROMYCIN 250 MG ORAL TABLET 2 po qd x 1 day, then 1 po q d x 4 days AZITHROMYCIN 18146109378 No Longer Active Jessica salgado [employer] Active PREDNISONE 20 MG ORAL TABLET 2 tabs daily for 3 days, 1 tab daily for 3 days, 1/2 tab daily for 2 days PREDNISONE 22598357637 No Longer Active Jessica Heaton [employer] Active PROMETHAZINE HCL 25 MG ORAL TABLET 1 four times a day as nee ded for vomiting PROMETHAZINE HCL 31464151145 No Longer Active Myrna Roberto MD Active BACTRIM DS 800-160 MG ORAL TABLET 1 twice a day 05/30 SULFAMETHOXAZOLE-TRIMETHOPRIM 34838963683 No Longer Active Myrna Roberto MD Active VICKS DAYQUIL SEVERE COLD/FLU TABLET 1 tab every 6 hours prn 201 02/22/17 [id number] TABS 80678042170 No Longer Active Chris Roberto MD Active GUAIFENESIN-CODEINE 100-10 MG/5ML ORAL SYRUP 2 tsp every 6 hours prn GUAIFENESIN-CODEINE 41046908259 No Longer Active Myrna Roberto MD Active NAPROXEN 500 MG ORAL TABLET one tab PO BID NAPR OXEN 57430587289 No Longer Active Myrna Roberto MD Active AUGMENTIN 875-125 MG ORAL TABLET 1 tab by mouth twice daily with food AMOXICILLIN-POT CLAVULANATE 53248800114 No Longer Act zaid Liliana Estrada MD PhD Active AMOXICILLIN 500 MG ORAL CAPSULE 1 tab by mouth 3 times daily 201 02/21/05 AMOXICILLIN 98759555828 No Longer Active Liliana Estrada MD PhD Active TESSALON PERLES 100 MG ORAL CAPSULE 1 tablet by mouth 3 times da cory BENZONATATE 21089425442 No Longer Active Liliana Estrada MD PhD Active FLAGYL 500 MG ORAL TABLET 1 tablet by mouth two times daily 2014 METRONIDAZOLE 65617096313 No Longer Active Nilam Doran tive ZITHROMAX 250 MG ORAL TABLET 2 po today, then 1 po q days 2-5 20 06/08/16 AZITHROMYCIN 83875303812 No Longer Active Arie Casper MD Active VITAMINS 0.8 MG ORAL TABLET take 1 tab po qday [id number] 37018745987 No Longer Active Arie Casper MD Active IBUPROFEN 800 MG ORAL TABLET take one po Q 8 hours 201 02/01/16 IBUPROFEN 84098073186 No Longer Active Arie Casper MD Acti ve [facility] TUSSIN COUGH/COLD CF 5-10-100 MG/5ML ORAL LIQUID 2 teasp oons every 4 hours [id number] 40833266074 No Longer Active Blaine Capser MD Active COMTREX COLD/COUGH DAY/NITE MS 5-2-10-325 MG ORAL 2 caps deja ry 4 hours [id number]-ECL-DO-APAP 71757904626 No Longer Active Da aleksandra Casper MD Active CHLORASEPTIC MAX SORE THROAT 15-10 MG MOUTH/THROAT LOZENGE 1 every 2 hours prn BENZOCAINE-MENTHOL 93827399145 No Longer Active Arie Casper MD Active PREDNISONE 20 MG ORAL TABLET 2 tabs daily for 3 days, 1 tab daily for 3 days, 1/2 tab daily for 2 days PREDNISONE 42525438470 No Longer Active Jose Zhong MD Active AZITHROMYCIN 250 MG ORAL TABLET 2 po qd x 1 day, then 1 po q d x 4 days AZITHROMYCIN 19889306159 No Longer Active Jose Mcwilliams MD Active ZOFRAN ODT 4 MG ORAL TABLET DISINTEGRATING 1 po q6hr PRN Nausea ONDANSETRON 32987935312 No Longer Active Rich Rosales MD Active ZOFRAN 4 MG ORAL TABLET 1 tablet every 4 hours ONDANSETRON HCL 83470107202 No Longer Active Rich Rosales MD Activ e MUCINEX 600 MG ORAL TABLET EXTENDED RELEASE 12 HOUR Ta ke 1-2 tablets every 12 hours GUAIFENESIN 83977512793 No Longer Active Rich Rosales MD Active BACTRIM 400-80 MG ORAL TABLET take one po BID SULFAMETHOXAZOLE-TRIMETHOPRIM 51903989817 No Longer Active Abelardo HERNANDEZ Active AZITHROMYCIN 500 MG ORAL TABLET 1 PO q day x 6 days 20 03/02/23 AZITHROMYCIN 82540395697 No Longer Active Tin HERNANDEZ Activ e ZITHROMAX 250 MG ORAL TABLET 2 po today, then 1 po q days 2-5 20 10/03/08 AZITHROMYCIN 72546804032 No Longer Active Arie Casper MD Active ZITHROMAX 250 MG ORAL TABLET 2 po today, then 1 po q days 2-5 20 09/23/25 AZITHROMYCIN 91987925126 No Longer Active Arie Casper MD Active AMOXICILLIN 500 MG ORAL CAPSULE 1 tab by mouth 3 times daily 201 11/24/09 AMOXICILLIN 34128718383 No Longer Active Arie Casper MD Active BACTRIM DS 800-160 MG ORAL TABLET 1 tab by mouth twice daily 201 11/03/14 TRIMETHOPRIM-SULFAMETHOXAZOLE 56112648895 No Longer Active Fozia Casper MD Active AMOXICILLIN 500 MG ORAL TABLET take 1 tab po TID 08/05 AMOXICILLIN 16519488120 No Longer Active Arie Casper MD Acti ve BACTRIM DS 800-160 MG ORAL TABLET 1 tab by mouth twice daily 201 11/03/14 BACTRIM DS 800-160 MG ORAL TABLET 467410 TRIMETHOPRIM-SULFAMETHOXAZOLE Inactive MUCINEX 600 MG ORAL TABLET EXTENDED RELEASE 12 HOUR Ta ke 1-2 tablets every 12 hours MUCINEX 600 MG ORAL TABLET EXTENDED RELEA SE 12 HOUR GUAIFENESIN Inactive ZOFRAN 4 MG ORAL TABLET 1 tablet every 4 hours ZOFRAN 4 MG ORAL TABLET 997662 ONDANSETRON HCL Inactive ZOFRAN ODT 4 MG ORAL TABLET DISINTEGRATING 1 po q6hr PRN Nausea ZOFRAN ODT 4 MG ORAL TABLET DISINTEGRATING 505134 ONDAN SETRON Inactive CHLORASEPTIC MAX SORE THROAT 15-10 MG MOUTH/THROAT LOZENGE 1 every 2 hours prn CHLORASEPTIC MAX SORE THROAT 15-10 MG MOUTH/THROAT LOZENGE BENZOCAINE-MENTHOL Inactive COMTREX COLD/COUGH DAY/NITE MS 5-2-10-325 MG ORAL 2 caps deja ry 4 hours COMTREX COLD/COUGH DAY/NITE MS 5-2-10-325 MG ORA L [id number] Inactive [facility] TUSSIN COUGH/COLD CF 5-10-100 MG/5ML ORAL LIQUID 2 teasp oons every 4 hours [facility] TUSSIN COUGH/COLD CF 5-10-100 MG/5ML ORAL LI QUID [id number] Inactive IBUPROFEN 800 MG ORAL TABLET take one po Q 8 hours 201 02/01/16 IBUPROFEN 800 MG ORAL TABLET IBUPROFEN Inactive VITAMINS 0.8 MG ORAL TABLET take 1 tab po qday VITAMINS 0.8 MG ORAL TABLET [id number] E-FA Inactive TESSALON PERLES 100 MG ORAL CAPSULE 1 tablet by mouth 3 times da cory TESSALON PERLES 100 MG ORAL CAPSULE 731084 BENZONATATE Inactive AMOXICILLIN 500 MG ORAL CAPSULE 1 tab by mouth 3 times daily 201 02/21/05 AMOXICILLIN 500 MG ORAL CAPSULE 322534 AMOXICILLIN Inactive GUAIFENESIN-CODEINE 100-10 MG/5ML ORAL SYRUP 2 tsp every 6 hours prn GUAIFENESIN-CODEINE 100-10 MG/5ML ORAL SYRUP 956941 GUAIFENESIN-CODEINE Inactive VICKS DAYQUIL SEVERE COLD/FLU TABLET 1 tab every 6 hours prn 201 02/22/17 VICKS DAYQUIL SEVERE COLD/FLU TABLET PHENYLEPHRI OK-TD-SH-APAP TABS Inactive BACTRIM DS 800-160 MG ORAL TABLET 1 twice a day 05/30 BACTRIM DS 800-160 MG ORAL TABLET 658919 SULFAMETHOXAZOLE-TRIMETHOPRIM Inactiv e PROMETHAZINE HCL 25 MG ORAL TABLET 1 four times a day as nee ded for vomiting PROMETHAZINE HCL 25 MG ORAL TABLET 707579 PROMETHAZINE HCL Inactive ZYRTEC ALLERGY 10 MG ORAL CAPSULE 1 po qd ZYRTEC ALLERGY 10 MG ORAL CAPSULE CETIRIZINE HCL Inactive MACROBID 100 MG ORAL CAPSULE 1 cap by mouth twice daily MACROBID 100 MG ORAL CAPSULE 1536857 NITROFURANTOIN MONOHYD MACRO In active LOMOTIL 2.5-0.025 MG ORAL TABLET 1 to 2 four times a day as needed for diarrhea LOMOTIL 2.5-0.025 MG ORAL TABLET 1735922 DIPHENOXYLATE-ATROPINE Inactive CYCLOBENZAPRINE HCL 10 MG ORAL TABLET 1/2 - 1 tablet b y mouth three times daily as needed for muscle spasm/pain CYCLOBEN ZAPRINE HCL 10 MG ORAL TABLET 388508 CYCLOBENZAPRINE HCL Inactive AMOXICILLIN 500 MG ORAL TABLET 2 tabs twice a day for 10 days 20 07/09/11 AMOXICILLIN 500 MG ORAL TABLET 911897 AMOXICILLIN I nactive LOMOTIL 2.5-0.025 MG ORAL TABLET 1 to 2 four times a day as needed for diarrhea LOMOTIL 2.5-0.025 MG ORAL TABLET 8291584 DIPHENOXYLATE-ATROPINE Inactive ZOFRAN 4 MG ORAL TABLET 1 TAB PO Q 6 HRS PRN NAUSEA 20 07/10/15 ZOFRAN 4 MG ORAL TABLET 720740 ONDANSETRON HCL Inactive CITRATE OF MAGNESIA ORAL SOLUTION 1 bottle today for constipatio n CITRATE OF MAGNESIA ORAL SOLUTION 5364934 MAGNESIUM CITR ATE Inactive PROMETHAZINE HCL 12.5 MG ORAL TABLET 1 tablet by mouth every 6 hours as needed for nausea/vomiting PROMETHAZINE HCL 12.5 MG ORA L TABLET 241687 PROMETHAZINE HCL Inactive PREDNISONE 20 MG ORAL TABLET 1 tablet twice daily for 2 days, then 1 tablet once daily for 2 days PREDNISONE 20 MG ORAL TABLET 708421 PREDNISONE Inactive ALPRAZOLAM 0.25 MG ORAL TABLET 1 tablet by mouth every 8 hours as needed for stress ALPRAZOLAM 0.25 MG ORAL TABLET 211141 ALPRA ZOLAM Inactive FLONASE 50 MCG/ACT NASAL SUSPENSION 1 spray each nostr il twice daily for allergies and runny nose until gone FLON ASE 50 MCG/ACT NASAL SUSPENSION 7917628 FLUTICASONE PROPIONATE Inactive PREDNISONE 20 MG ORAL TABLET 1 tablet daily for airway inflammat ion PREDNISONE 20 MG ORAL TABLET 870196 PREDNISONE [place] ctive NAPROXEN 500 MG ORAL TABLET Take 1 tab BID NAPROXEN 500 MG ORAL TABLET 737656 NAPROXEN Inactive ZOLOFT 50 MG ORAL TABLET 1 tablet by mouth daily 12/08 ZOLOFT 50 MG ORAL TABLET 031627 SERTRALINE HCL Inactive LOMOTIL 2.5-0.025 MG ORAL TABLET 1 tab po four times a day as needed for diarrhea LOMOTIL 2.5-0.025 MG ORAL TABLET 6153171 DIPHENOXYLATE-ATROPINE Inactive CETIRIZINE HCL 10 MG ORAL TABLET 1 po qd PRN Allergies CETIRIZINE HCL 10 MG ORAL TABLET 0273317 CETIRIZINE HCL Inactiv e TUSSIONEX PENNKINETIC ER 10-8 MG/5ML ORAL SUSPENSION E XTENDED RELEASE 5ml po q12hr PRN Cough TUSSIONEX PENNKINETI C ER 10-8 MG/5ML ORAL SUSPENSION EXTENDED RELEASE HYDROCOD POLST-CHLORPHEN POLST I nactive NEXPLANON IMPLANT right arm subcutaneously NEXPLANON IMPLANT ETONOGESTREL IMPL Inactive PROTONIX 40 MG ORAL TABLET DELAYED RELEASE 1 po q a.m. PROTONIX 40 MG ORAL TABLET DELAYED RELEASE 221146 PANTOPRAZOLE SODI UM Inactive CHERATUSSIN AC 100-10 MG/5ML ORAL SYRUP 1 tsp by mouth every 4 hours as needed for cough CHERATUSSIN AC 100-10 MG/5ML ORAL SYRUP 9 15814 GUAIFENESIN-CODEINE Inactive GUAIFENESIN DM 400-20 MG ORAL [...] TID 08/05 AMOXICILLIN 500 MG ORAL TABLET 511647 AMOXICILLIN Inactive AMOXICILLIN 500 MG ORAL CAPSULE 1 tab by mouth 3 times daily 201 11/24/09 AMOXICILLIN 500 MG ORAL CAPSULE 868178 AMOXICILLIN Inactive ZITHROMAX 250 MG ORAL TABLET 2 po today, then 1 po q days 2-5 20 09/23/25 ZITHROMAX 250 MG ORAL TABLET 349993 AZITHROMYCIN [place] ctive ZITHROMAX 250 MG ORAL TABLET 2 po today, then 1 po q days 2-5 20 10/03/08 ZITHROMAX 250 MG ORAL TABLET 339187 AZITHROMYCIN [place] ctive AZITHROMYCIN 500 MG ORAL TABLET 1 PO q day x 6 days 03/02/23 AZITHROMYCIN 500 MG ORAL TABLET 8421263 AZITHROMYCIN Inactive BACTRIM 400-80 MG ORAL TABLET take one po BID BACTRIM 400- 80 MG ORAL TABLET 847862 SULFAMETHOXAZOLE-TRIMETHOPRIM Inactive AZITHROMYCIN 250 MG ORAL TABLET 2 po qd x 1 day, then 1 po q d x 4 days AZITHROMYCIN 250 MG ORAL TABLET 216592 AZITHROMY ALLISON Inactive PREDNISONE 20 MG ORAL TABLET 2 tabs daily for 3 days, 1 tab daily for 3 days, 1/2 tab daily for 2 days PREDNISONE 20 MG ORAL T ABLET 172010 PREDNISONE Inactive ZITHROMAX 250 MG ORAL TABLET 2 po today, then 1 po q days 2-5 20 06/08/16 ZITHROMAX 250 MG ORAL TABLET 751720 AZITHROMYCIN [place] ctive FLAGYL 500 MG ORAL TABLET 1 tablet by mouth two times daily 2014 FLAGYL 500 MG ORAL TABLET 375902 METRONIDAZOLE Inacti ve AUGMENTIN 875-125 MG ORAL TABLET 1 tab by mouth twice daily with food AUGMENTIN 875-125 MG ORAL TABLET 516051 AMOXICIL ELSA-POT CLAVULANATE Inactive NAPROXEN 500 MG ORAL TABLET one tab PO BID NAPROXEN 500 MG ORAL TABLET 814471 NAPROXEN Inactive PREDNISONE 20 MG ORAL TABLET 2 tabs daily for 3 days, 1 tab daily for 3 days, 1/2 tab daily for 2 days PREDNISONE 20 MG ORAL T ABLET 059461 PREDNISONE Inactive AZITHROMYCIN 250 MG ORAL TABLET 2 po qd x 1 day, then 1 po q d x 4 days AZITHROMYCIN 250 MG ORAL TABLET 336239 AZITHROMY ALLISON Inactive PREDNISONE 20 MG ORAL TABLET 2 tabs daily for 3 days, 1 tab daily for 3 days, 1/2 tab daily for 2 days PREDNISONE 20 MG ORAL T ABLET 479990 PREDNISONE Inactive ZITHROMAX Z-EMIL 250 MG ORAL TABLET 2 today, then 1 daily for 4 d ays ZITHROMAX Z-EMIL 250 MG ORAL TABLET 724119 AZITHROMYCIN Inactive CEFDINIR 300 MG ORAL CAPSULE [...] days PREDNISONE 20 MG ORAL T ABLET 914954 PREDNISONE Inactive BACTRIM DS 800-160 MG ORAL TABLET 1 tab by mouth twice daily 201 05/02/30 BACTRIM DS 800-160 MG ORAL TABLET 647168 TRIMETHOPRIM-SULFAMETHOXAZOLE Inactive ZITHROMAX Z-EMIL 250 MG ORAL TABLET 2 today, then 1 daily for 4 d ays ZITHROMAX Z-EMIL 250 MG ORAL TABLET 839361 AZITHROMYCIN Inactive TAMIFLU 75 MG ORAL CAPSULE 1 po BID x 5 days 0 TAMIFLU 75 MG ORAL CAPSULE 021417 OSELTAMIVIR PHOSPHATE Inactive CEFDINIR 300 MG ORAL CAPSULE 1 po BID x 10 days 2018/01/03 CEFDINIR 300 MG ORAL CAPSULE 996635 CEFDINIR Inactive ZITHROMAX Z-EMIL 250 MG TABS Take two tablets today and then 1 tablet daily for 4 days ZITHROMAX Z-EMIL 250 MG TABS 972177 AZITHROM YCIN Inactive Advance Directives Directive Description [...] Negative Encounters Code Encounter Date Provider Facility CPT-22794 Level 3 Est. Patient 11:49:34 HARMONICA MAKER Jessica boyd [facility] CPT-31126 Level 3 Est. Patient 14:55:50 HAR[employer]ICA [employer] Jose Zhong MD [facility] CPT-83681 Level 3 Est. Patient 10:21:41 HARMONICA MAKER Arie mcqueen MD [facility] CPT-47744 Level 3 Est. Patient 11:35:15 HARMONICA MAKER Arie mcqueen MD [facility] CPT-03181 Level 3 Est. Patient 15:40:28 CDT Brii escalante [facility] CPT-70554 Level 3 Est. Patient 16:40:36 CDT Arie mcqueen MD [facility] CPT-51646 Level 4 Est. Patient 15:29:22 HARMONICA MAKER Arie mcqueen MD [facility] CPT-99084 Level 3 Est. Patient 15:18:16 HARMONICA MAKER Jono W L [facility] CPT-94294 Level 4 Est. Patient 12:08:40 HARMONICA MAKER Brii Are ll [employer] [facility] CPT-85841 Level 3 Est. Patient 09:24:42 CDT Brii Are ll [employer] [facility] CPT-67919 Level 3 Est. Patient 09:12:56 CDT Arie mcqueen MD [facility] CPT-73088 Level 3 Est. Patient 16:40:54 CDT Jose Zhong MD [facility] CPT-72728 Level 2 Est. Patient 13:01:13 CDT Brii Are ll [facility] CPT-63607 Level 3 Est. Patient 11:55:30 HARMONICA MAKER Jono Cheema [facility]-17525 Level 3 Est. Patient 09:52:36 HARMONICA MAKER Brii Are ll [facility] CPT-22780 Level 3 Est. Patient 16:25:33 HARMONICA MAKER Rich Rosales MD [facility] CPT-46773 Level 3 Est. Patient 20:33:55 CDT Arie mcqueen MD [facility] CPT-86110 Level 3 Est. Patient 14:18:20 CDT Rich Rosales MD [facility] CPT-29202 Level 4 Est. Patient 09:34:31 CDT Arie mcqueen MD [facility] CPT-52274 Level 3 Est. Patient 09:08:55 HARMONICA MAKER Liliana vincent MD PhD [facility] CPT-68540 Level 3 Est. Patient 16:44:07 HARMONICA MAKER Arie mcqueen MD [facility]-61789 Level 3 Est. Patient 10:44:27 CDT Arie mcqueen MD [facility] CPT-46637 Level 3 Est. Patient 08:55:41 CDT Jose Zhong MD [facility] CPT-51026 Level 3 Est. Patient 18:37:31 CDT Liliana vincent MD PhD [facility] CPT-83642 Level 3 Est. Patient 14:28:23 CDT Abelardo HERNANDEZ [facility] CPT-77160 Level 3 Est. Patient 15:18:13 HARMONICA MAKER Arie mcqueen MD [facility] CPT-29128 Level 3 Est. Patient 10:11:29 HARMONICA MAKER Arie mcqueen MD [facility] CPT-66454 Level 3 Est. Patient 10:55:57 HARMONICA MAKER Jono black DO [facility] CPT-07582 Level 3 Est. Patient 17:29:05 CDT Arie mcqueen MD [facility] Procedures Code Procedure Name Date Entry Date Standard Desc ription CPT-76964 Nexplanon Removal 15:40:28 CDT CPT-12564 Sono transvag pelvis non OB uterus ovari es cervix - XRAY USE ONLY 08:58:14 HARMONICA MAKER CPT-99420 UA w micro - LAB USE ONLY 16:04:56 HARMONICA MAKER 2015 CPT-42576 Wet Prep/GEN - LAB USE ONLY 16:04:56 HARMONICA MAKER 20 08/10/29 CPT-33493 First Vx - Ix admin via ID I M or jet injects without counseling by physician 16:57:10 CDT CPT-48867 Fluzone Preservative Free Intramuscular Suspension 16:57:10 CDT CPT-J0696 Rocephin 1000 mg (Ceftriaxone) 11:49:23 CDT CPT-J1040 Depo Medrol 80 mg (Methyl Prednisolone A cetate) 11:49:23 CDT CPT-J1100 Decadron 8mg (Dexamethasone) 11:49:23 CDT 2 CPT-68509 Abx/Therapy Injection 11:49:23 CDT CPT-08941 Abx/Therapy Injection 11:49:23 CDT CPT-65723 Abd compl w upright 09:07:26 HARMONICA MAKER CPT-86393 Ear Wash 16:12:47 HARMONICA MAKER CPT-OV Office Visit 11:12:01 CDT CPT-OV Office Visit 15:30:23 CDT CPT-05141 Sono pelvis non OB uterus ovaries cervix 15:50:44 CDT CPT-75294 Hand comp min 3V 16:42:32 CDT CPT-36853 Abd compl w upright 12:17:01 CDT CPT-28428 Nexplanon Placement 15:07:39 HARMONICA MAKER CPT-50124 Removal of IUD 15:07:39 HARMONICA MAKER CPT-84908 TB Tubersol 12:09:32 CDT CPT-14746 TB Tubersol 13:55:43 CDT
--- OUTSIDE RECORDS SUMMARY | 2020-03-03 07:29 | XMS REPORT | Clinical Summary ---
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 Nausea alone BREAST CANCER ICD-V16.3 Inactive Jose Marcelo COLON [...] 6 HRS PRN NAUSEA 2014 ONDANSETRON HCL 75080819277 No Longer Active Brii Larson APRN A ctive LOMOTIL 2.5-0.025 MG TAB 1 to 2 four times a day as needed f or diarrhea DIPHENOXYLATE-ATROPINE 24241086275 No Longer Active January carballo Neo CABRERA Active CITRATE OF MAGNESIA ORAL SOLN 1 bottle today for constipation 10/07 MAGNESIUM CITRATE 44337396486 Active Brii Larson APRN Act zaid PROMETHAZINE HCL 12.5 MG TABS 1 tablet by mouth every 6 hours as needed for nausea/vomiting PROMETHAZINE HCL 46337067986 Active Me lobito Larson CONFIGURATION MANAGEMENT ARCHITECT Active AMOXICILLIN 500 MG TABS 2 tabs twice a day for 10 days AMOXICILLIN 79644219552 No Longer Active Briiarnaldo Larson APRN Acti ve NEXPLANON IMPL ETONOGESTREL IMPL 94920182430 Active Rich Rosales MD Active CYCLOBENZAPRINE HCL 10 MG TABS 1/2 - 1 tablet by mouth three times daily as needed for muscle spasm/pain CYCLOBENZAPRINE HCL 46270480012 No Longer Active Arie Casper MD Active LOMOTIL 2.5-0.025 MG TABS 1 to 2 four times a day as needed for diarrhea DIPHENOXYLATE-ATROPINE 65107514653 No Longer Active Fozia Casper MD Active MACROBID 100 MG CAP 1 cap by mouth twice daily NITROFURANTOIN MONOHYD MACRO 95563217298 No Longer Active Arie Casper MD Active ZYRTEC ALLERGY 10 MG CAPS 1 po qd CETIRIZINE HCL 68436501997 No Longer Active Arie Casper MD Active AZITHROMYCIN 250 MG TABS 2 po qd x 1 day, then 1 po qd x 4 days AZITHROMYCIN 38279892647 No Longer Active Jillina Florina CONFIGURATION MANAGEMENT ARCHITECT Active PREDNISONE 20 MG TAB 2 tabs daily for 3 days, 1 t ab daily for 3 days, 1/2 tab daily for 2 days PREDNISONE 86470547548 No Longer Active Jillina Franaomi CONFIGURATION MANAGEMENT ARCHITECT Active PROMETHAZINE HCL 25 MG TABS 1 four times a day as needed for vomiting PROMETHAZINE HCL 56081280739 No Longer Active Myrna Roberto MD Active BACTRIM DS 800-160 MG TABS 1 twice a day SULFAMETHOXAZOLE-TRIMETHOPRIM 01125340048 No Longer Active Myrna Roberto MD Active VICKS DAYQUIL SEVERE COLD/FLU TABS 1 tab every 6 hours prn 12/10 [id number]-APAP TABS 96675758106 No Longer Active Myrna leigh MD Active GUAIFENESIN-CODEINE 100-10 MG/5ML ORAL SYRP 2 tsp every 6 hours prn GUAIFENESIN-CODEINE 79589932950 No Longer Active Myrna Roberto MD Active NAPROXEN 500 MG TAB one tab PO BID NAPROXEN 332 71689511 No Longer Active Myrna Roberto MD Active AUGMENTIN 875-125 MG TAB 1 tab by mouth twice daily with food 08/12/16 AMOXICILLIN-POT CLAVULANATE 04291504412 No Longer Active Liliana Estrada MD PhD Active AMOXICILLIN 500 MG CAP 1 tab by mouth 3 times daily 08/12/16 AMOXICILLIN 16445291048 No Longer Active Liliana Estrada MD PhD Acti ve TESSALON PERLES 100 MG CAP 1 tablet by mouth 3 times daily 11/01 BENZONATATE 22984662290 No Longer Active Liliana Estrada MD PhD Active FLAGYL 500 MG TAB 1 tablet by mouth two times daily 20 07/11/29 METRONIDAZOLE 09707717093 No Longer Active Nilam Weber Active ZITHROMAX 250 MG TAB 2 po today, then 1 po q days 2-5 AZITHROMYCIN 71673414216 No Longer Active Arie Casper MD Acti ve VITAMINS 0.8 MG TABS take 1 tab po qday 08/08 [id number] 29894528746 No Longer Active Arie Casper MD Active IBUPROFEN 800 MG TABS take one po Q 8 hours IBU PROFEN 22204908070 No Longer Active Arie Casper MD Active [facility] TUSSIN COUGH/COLD CF 5-10-100 MG/5ML LIQD 2 teaspoons ev eliud 4 hours [id number] 70957913989 No Longer Active Blaine Casper MD Active COMTREX COLD/COUGH DAY/NITE MS 5-2-10-325 MG MISC 2 caps deja ry 4 hours [id number]-APAP 79934003579 No Longer Active Da aleksandra Casper MD Active CHLORASEPTIC MAX SORE THROAT 15-10 MG LOZG 1 every 2 hours prn 2 BENZOCAINE-MENTHOL 32266658230 No Longer Active Arie Marcelo Active PREDNISONE 20 MG TAB 2 tabs daily for 3 days, 1 t ab daily for 3 days, 1/2 tab daily for 2 days PREDNISONE 14219617571 No Longer Active Jose Zhong MD Active AZITHROMYCIN 250 MG TABS 2 po qd x 1 day, then 1 po qd x 4 days AZITHROMYCIN 29778904204 No Longer Active Jose Zhong MD Active ZOFRAN ODT 4 MG TBDP 1 po q6hr PRN Nausea ONDAN SETRON 94060317699 No Longer Active Rich Rosales MD Active ZOFRAN 4 MG TABS 1 tablet every 4 hours ONDAWANDY ALLAN HCL 08824574834 No Longer Active Rich Rosales MD Active MUCINEX 600 MG [id number] Take 1-2 tablets every 12 hours GUAIFENESIN 88955087647 No Longer Active Rich Rosales MD Activ e BACTRIM 400-80 MG TABS take one po BID SULFAMETHOXAZOLE-TRIMETHOPRIM 65083039900 No Longer Active Abelardo HERNANDEZ Active AZITHROMYCIN 500 MG TABS 1 PO q day x 6 days AZ ITHROMYCIN 72680745152 No Longer Active Tin HERNANDEZ Active ZITHROMAX 250 MG TAB 2 po today, then 1 po q days 2-5 AZITHROMYCIN 87023592441 No Longer Active Arie Casper MD Acti ve ZITHROMAX 250 MG TAB 2 po today, then 1 po q days 2-5 AZITHROMYCIN 20961378896 No Longer Active Arie Casper MD Acti ve AMOXICILLIN 500 MG CAP 1 tab by mouth 3 times daily 09/23/20 AMOXICILLIN 53605423782 No Longer Active Arie Casper MD Acti ve BACTRIM DS 800-160 MG TAB 1 tab by mouth twice daily 2 TRIMETHOPRIM-SULFAMETHOXAZOLE 76604990126 No Longer Active Arie Casper MD Active AMOXICILLIN 500 MG TABS take 1 tab po TID AMOXI CILLIN 71497877365 No Longer Active Arie Casper MD Active BACTRIM DS 800-160 MG TAB 1 tab by mouth twice daily 2 BACTRIM DS 800-160 MG TAB 643919 TRIMETHOPRIM-SULFAMETHOXAZOLE Inac tive MUCINEX 600 MG [id number] Take 1-2 tablets every 12 hours MUCINEX 600 MG [id number] GUAIFENESIN Inactive ZOFRAN 4 MG TABS 1 tablet every 4 hours ZOFRAN 4 MG TABS 401349 ONDANSETRON HCL Inactive ZOFRAN ODT 4 MG TBDP 1 po q6hr PRN Nausea ZOFRAN ODT 4 MG TBDP 492141 ONDANSETRON Inactive CHLORASEPTIC MAX SORE THROAT 15-10 MG LOZG 1 every 2 hours prn 2 /04/30 CHLORASEPTIC MAX SORE THROAT 15-10 MG LOZG BENZO ARINA-MENTHOL Inactive COMTREX COLD/COUGH DAY/NITE MS 5-2-10-325 MG MISC 2 caps deja ry 4 hours COMTREX COLD/COUGH DAY/NITE MS 5-2-10-325 MG MIS C [id number]-APAP Inactive [facility] TUSSIN COUGH/COLD CF 5-10-100 MG/5ML LIQD 2 teaspoons ev eliud 4 hours [facility] TUSSIN COUGH/COLD CF 5-10-100 MG/5ML LIQD [id number] Inactive IBUPROFEN 800 MG TABS take one po Q 8 hours IBUPROFEN 800 MG TABS IBUPROFEN Inactive VITAMINS 0.8 MG TABS take 1 tab po qday 08/08 VITAMINS 0.8 MG TABS [id number] Inactive TESSALON PERLES 100 MG CAP 1 tablet by mouth 3 times daily 11/01 TESSALON PERLES 100 MG CAP 765691 BENZONATATE Inact zaid AMOXICILLIN 500 MG CAP 1 tab by mouth 3 times daily 08/12/16 AMOXICILLIN 500 MG CAP 563339 AMOXICILLIN Inactive GUAIFENESIN-CODEINE 100-10 MG/5ML ORAL SYRP 2 tsp every 6 hours prn GUAIFENESIN-CODEINE 100-10 MG/5ML ORAL SYRP 268612 GUAIFENESIN-CODEINE Inactive VICKS DAYQUIL SEVERE COLD/FLU TABS 1 tab every 6 hours prn 12/10 VICKS DAYQUIL SEVERE COLD/FLU TABS PHENYLEPHRINE -DM-GG-APAP TABS Inactive BACTRIM DS 800-160 MG TABS 1 twice a day BACTRIM DS 800- 160 MG TABS 212048 SULFAMETHOXAZOLE-TRIMETHOPRIM Inactive PROMETHAZINE HCL 25 MG TABS 1 four times a day as needed for vomiting PROMETHAZINE HCL 25 MG TABS 472464 PROMETHAZINE HCL Inactive ZYRTEC ALLERGY 10 MG CAPS 1 po qd ZY RTEC ALLERGY 10 MG CAPS CETIRIZINE HCL Inactive MACROBID 100 MG CAP 1 cap by mouth twice daily MACROBID 100 MG CAP 0432820 NITROFURANTOIN MONOHYD MACRO Inactive LOMOTIL 2.5-0.025 MG TABS 1 to 2 four times a day as needed for diarrhea LOMOTIL 2.5-0.025 MG TABS 6941048 DIPHENOXYLATE-A TROPINE Inactive CYCLOBENZAPRINE HCL 10 MG TABS 1/2 - 1 tablet by mouth three times daily as needed for muscle spasm/pain CYCLOBENZAP RINE HCL 10 MG TABS 682255 CYCLOBENZAPRINE HCL Inactive AMOXICILLIN 500 MG TABS 2 tabs twice a day for 10 days AMOXICILLIN 500 MG TABS 047642 AMOXICILLIN Inactive LOMOTIL 2.5-0.025 MG TAB 1 to 2 four times a day as needed f or diarrhea LOMOTIL 2.5-0.025 MG TAB 5408320 DIPHENOXYLATE-AT ROPINE Inactive ZOFRAN 4 MG ORAL TABS 1 TAB PO Q 6 HRS PRN NAUSEA 2014 ZOFRAN 4 MG ORAL TABS 221518 ONDANSETRON HCL Inactive AMOXICILLIN 500 MG TABS take 1 tab po TID AMOXICILLIN 500 MG TABS 452127 AMOXICILLIN Inactive AMOXICILLIN 500 MG CAP 1 tab by mouth 3 times daily 09/23/20 AMOXICILLIN 500 MG CAP 906315 AMOXICILLIN Inactive ZITHROMAX 250 MG TAB 2 po today, then 1 po q days 2-5 ZITHROMAX 250 MG TAB 5683988 AZITHROMYCIN Inactive ZITHROMAX 250 MG TAB 2 po today, then 1 po q days 2-5 ZITHROMAX 250 MG TAB 3449920 AZITHROMYCIN Inactive AZITHROMYCIN 500 MG TABS 1 PO q day x 6 days 3 AZITHROMYCIN 500 MG TABS 4424891 AZITHROMYCIN Inactive BACTRIM 400-80 MG TABS take one po BID BA CTRIM 400-80 MG TABS 036163 SULFAMETHOXAZOLE-TRIMETHOPRIM Inactive AZITHROMYCIN 250 MG TABS 2 po qd x 1 day, then 1 po qd x 4 days AZITHROMYCIN 250 MG TABS 3106801 AZITHROMYCIN Inactiv e PREDNISONE 20 MG TAB 2 tabs daily for 3 days, 1 t ab daily for 3 days, 1/2 tab daily for 2 days PREDNISONE 20 MG TAB 157105 PREDNISON E Inactive ZITHROMAX 250 MG TAB 2 po today, then 1 po q days 2-5 ZITHROMAX 250 MG TAB 9089615 AZITHROMYCIN Inactive FLAGYL 500 MG TAB 1 tablet by mouth two times daily 07/11/29 FLAGYL 500 MG TAB 559768 METRONIDAZOLE Inactive AUGMENTIN 875-125 MG TAB 1 tab by mouth twice daily with food 20 08/12/16 AUGMENTIN 875-125 MG TAB 562351 AMOXICILLIN-POT CLAVULA ANGELO Inactive NAPROXEN 500 MG TAB one tab PO BID NAPROXEN 500 MG TAB 272759 NAPROXEN Inactive PREDNISONE 20 MG TAB 2 tabs daily for 3 days, 1 t ab daily for 3 days, 1/2 tab daily for 2 days PREDNISONE 20 MG TAB 545851 PREDNISON E Inactive AZITHROMYCIN 250 MG TABS 2 po qd x 1 day, then 1 po qd x 4 days AZITHROMYCIN 250 MG TABS 3449064 AZITHROMYCIN Inactiv e Advance Directives Directive Description [...] 11 .6-14.8 platelet count 214 10^3/MM^3 10*3/mm3 192-903 4029/12/15 leukocyte count, blood 8.4 10^3/MM^3 10*3/mm3 4.6-10.2 [...] 276 10^3/MM^3 10*3/mm3 142-424 Lab Report: Chlamydia/GC APTIMA/[id number] - Lab chlamydia DNA probe NOT DETECTED NOT DETECTED Lab Report: Chlamydia/GC APTIMA/[id number] - Microbiology Neisseria gonorrhoeae DNA probe NOT DETECTED NO T DETECTED Lab Report: Comp. Metabolic Panel - Chem istry sodium, serum 139 mmol/L 212-512 0142/12/15 carbon dioxide, venous blood 30.2 mmol/L 21.0-32 .0 potassium, serum 3.4 mmol/L 3.5-5.2 chloride, serum 101 mmol/L 98-107 blood glucose 92 mg/dL 65-110 urea nitrogen, blood 5 mg/dL 7-18 creatinine, serum 0.81 mg/dL 0.55-1.30 alanine aminotransferase (SGPT), serum 20 U/L 12-78 aspartate aminotransferase (SGOT), serum 10 U/L 15-37 calcium, serum 8.4 mg/dL 8.5-10.1 bilirubin, serum, total 0.60 mg/dL 0.00-1.00 Lab Report: HIV-1/2 Agn/Darcy/04562, HEPAT ITIS PANEL, ACUTE W/REFLE - Chemistry [...] 2+ Negative RBC, urine, dipstick Negative Negative protein, [...] 1.020 1.000-1.030 pH, urine, semiquantitative 6.5 5.0-8.5 urobilinogen, urine, semiquantitative (dipstick) 0.2 Normal [...] 5.0-8.5 Encounters Code Encounter Date Provider Facility CPT-88389 Level 3 Est. Patient 09:52:36 CHEMIC MANGLER Steve CABRERA [facility] CPT-59529 Level 3 Est. Patient 16:25:33 CHEMIC MANGLER Rich Rosales MD [facility] CPT-88698 Level 3 Est. Patient 20:33:55 CDT Arie mcqueen MD [facility] CPT-71657 Level 3 Est. Patient 14:18:20 CDT Rich Rosales MD [facility] CPT-56385 Level 4 Est. Patient 09:34:31 CDT Arie mcqueen MD [facility] CPT-34417 Level 3 Est. Patient 09:08:55 CHEMIC MANGLER Liliana vincent MD PhD [facility] CPT-66694 Level 3 Est. Patient 16:44:07 CHEMIC MANGLER Arie mcqueen MD [facility] CPT-39798 Level 3 Est. Patient 10:44:27 CDT Arie mcqueen MD [facility] CPT-46600 Level 3 Est. Patient 08:55:41 CDT Jose Zhong MD [facility] CPT-93091 Level 3 Est. Patient 18:37:31 CDT Liliana vincent MD PhD [facility] CPT-35230 Level 3 Est. Patient 14:28:23 CDT Abelardo HERNANDEZ [facility] CPT-08831 Level 3 Est. Patient 15:18:13 CHEMIC MANGLER Arie mcqueen MD [facility] CPT-37737 Level 3 Est. Patient 10:11:29 CHEMIC MANGLER Arie mcqueen MD [facility] CPT-07588 Level 3 Est. Patient 10:55:57 CHEMIC MANGLER Jono black DO [facility] CPT-50314 Level 3 Est. Patient 17:29:05 CDT Arie mcqueen MD [facility] Procedures Code Procedure Name Date Entry Date Standard Desc ription CPT-95933 Abd compl w upright 09:07:26 CHEMIC MANGLER CPT-26077 Ear Wash 16:12:47 CHEMIC MANGLER CPT-OV Office Visit 11:12:01 CDT CPT-OV Office Visit 15:30:23 CDT CPT-01865 Sono pelvis non OB uterus ovaries cervix 15:50:44 CDT CPT-91887 Hand comp min 3V 16:42:32 CDT CPT-09134 Abd compl w upright 12:17:01 CDT CPT-86302 Nexplanon Placement 15:07:39 CHEMIC MANGLER CPT-70472 Removal of IUD 15:07:39 CHEMIC MANGLER CPT-14847 TB Tubersol 12:09:32 CDT CPT-81593 TB Tubersol 13:55:43 CDT
[2020-03-03] MEDS ORDERED: MEASLES,MUMPS,RUBELLA 1 EA INJ SC SCH (07:30)
[2020-03-03] MEDS ORDERED: TETANUS,DIPTH,PERTUSS P/F (BOOSTRIX) 0.5 ML VIAL IM SCH (07:30)
[2020-03-03] MEDS ORDERED: ONDANSETRON 4 MG/2 ML (SDV) Z0FRAN IVP PRN (07:30)
--- OUTSIDE RECORDS SUMMARY | 2020-03-03 07:30 | XMS REPORT | Clinical Summary ---
Author Author Admin, Diamante Marcelo Organization [facility] Address Unknown Phone Unavailable Allergies, [...] with depression 300.4 Active Brii Ramirez l COST COORDINATOR Dysthymic disorder URI 465.9 Active Jono Gagnon DO Acu te upper respiratory infections of unspecified site Vaginal bleeding 623.8 Resolved Jose Zhong MD Other specified noninflammatory disorders of vagina High risk sexual behavior V69.2 Active Arie Casper MD High-risk sexual behavior GERD 530.81 Active Arie Casper MD Esophageal reflux Encounter for surveillance of implantable subdermal contraceptiv e Active Brii Petrona COST COORDINATOR Vaginal bleeding 623.8 Active Arie Casper MD Other specified noninflammatory disorders of vagina Influenza like illness 487.1 Active Jose Mcwilliams MD Influenza with other respiratory manifestations Sinusitis 473.9 Active Jessica Heaton COST COORDINATOR Unspecified sinusitis (chronic) BREAST CANCER ICD-V16.3 Inactive [...] 1 tablet daily for 4 days AZITHROMYCIN 23015162960 No Longer Active Flaco Rosales MD Active GUAIFENESIN DM 400-20 MG ORAL TABLET 1 pill by mouth t wice daily, if needed for cough DEXTROMETHORPHAN-GUAIFENESIN 64991590931 No Longer Active Rich Rosales MD Active TUSSIONEX PENNKINETIC ER 10-8 MG/5ML ORAL SUSPENSION E XTENDED RELEASE 5ml po q12hr PRN Cough HYDROCOD POLST-CHLORPHEN POLST 41534344048 Active Rich Rosales MD Active CEFDINIR 300 MG ORAL CAPSULE 1 po BID x 10 days CEFDINIR 73248337483 No Longer Active Waynellarlen Heaton APRN Active CHERATUSSIN AC 100-10 MG/5ML ORAL SYRUP 1 tsp by mouth every 4 hours as needed for cough GUAIFENESIN-CODEINE 91706238037 No Longe r Active Waynellarlen Heaton COST COORDINATOR Active TAMIFLU 75 MG ORAL CAPSULE 1 po BID x 5 days 0 OSELTAMIVIR PHOSPHATE 93630427754 No Longer Active Jose hZong MD Activ e ZITHROMAX Z-EMIL 250 MG ORAL TABLET 2 today, then 1 daily for 4 d ays AZITHROMYCIN 71866566843 No Longer Active Arie Casper MD Active PROTONIX 40 MG ORAL TABLET DELAYED RELEASE 1 po q a.m. PANTOPRAZOLE SODIUM 31479077861 No Longer Active Arie Casper MD Active BACTRIM DS 800-160 MG ORAL TABLET 1 tab by mouth twice daily 201 05/02/30 TRIMETHOPRIM-SULFAMETHOXAZOLE 87349583911 No Longer Active R [facility] Active NEXPLANON IMPLANT right arm subcutaneously ETONOGESTREL IMPL 07320807691 No Longer Active Brii Russ APRN Active TUSSIONEX PENNKINETIC ER 10-8 MG/5ML ORAL SUSPENSION E XTENDED RELEASE 5ml po q12hr PRN Cough HYDROCOD POLST-CHLORPHEN POLST 5 8036423728 No Longer Active Brii Russ APRN Active CETIRIZINE HCL 10 MG ORAL TABLET 1 po qd PRN Allergies CETIRIZINE HCL 66422042869 No Longer Active Brii Russ APRN Activ e PREDNISONE 20 MG ORAL TABLET 2 tabs daily for 3 days, 1 tab daily for 3 days, 1/2 tab daily for 2 days PREDNISONE 28952385665 No Longer Active Arie Casper MD Active LOMOTIL 2.5-0.025 MG ORAL TABLET 1 tab po four times a day as needed for diarrhea DIPHENOXYLATE-ATROPINE 30552991566 No Lo nger Active Arie Casper MD Active ZOLOFT 50 MG ORAL TABLET 1 tablet by mouth daily 12/08 SERTRALINE HCL 15005966949 No Longer Active Arie Casper MD Ac tive NAPROXEN 500 MG ORAL TABLET Take 1 tab BID NAPR OXEN 11981983283 No Longer Active Arie Casper MD Active CEFDINIR 300 MG ORAL CAPSULE 1 po BID x 10 days CEFDINIR 47865803249 No Longer Active Brii Russ APRN Active PREDNISONE 20 MG ORAL TABLET 1 tablet daily for airway inflammat ion PREDNISONE 37685160721 No Longer Active Brii Russ APRN A ctive CEFDINIR 300 MG ORAL CAPSULE 1 po BID x 10 days CEFDINIR 46154989406 No Longer Active Jono Gagnon DO Active FLONASE 50 MCG/ACT NASAL SUSPENSION 1 spray each nostr il twice daily for allergies and runny nose until gone FLUT ICASONE PROPIONATE 48332193345 No Longer Active Jono Gagnon DO Active ALPRAZOLAM 0.25 MG ORAL TABLET 1 tablet by mouth every 8 hours as needed for stress ALPRAZOLAM 84206525708 No Longer Active Jono Gagnon DO Active ZITHROMAX Z-EMIL 250 MG ORAL TABLET 2 today, then 1 daily for 4 d ays AZITHROMYCIN 97033615990 No Longer Active Arie Casper MD Active PREDNISONE 20 MG ORAL TABLET 2 tabs daily for 3 days, 1 tab daily for 3 days, 1/2 tab daily for 2 days PREDNISONE 83238708543 No Longer Active Brii Russ APRN Active PREDNISONE 20 MG ORAL TABLET 1 tablet twice daily for 2 days, then 1 tablet once daily for 2 days PREDNISONE 64042417571 No Longer Active Brii Russ APRN Active PROMETHAZINE HCL 12.5 MG ORAL TABLET 1 tablet by mouth every 6 hours as needed for nausea/vomiting PROMETHAZINE HCL 80279674913 No L onger Active Jono Gagnon DO Active CITRATE OF MAGNESIA ORAL SOLUTION 1 bottle today for constipatio n MAGNESIUM CITRATE 66943963616 No Longer Active Jono Gagnon DO Active ZOFRAN 4 MG ORAL TABLET 1 TAB PO Q 6 HRS PRN NAUSEA 07/10/15 ONDANSETRON HCL 61074820318 No Longer Active Brii Russ APRN Acti ve LOMOTIL 2.5-0.025 MG ORAL TABLET 1 to 2 four times a day as needed for diarrhea DIPHENOXYLATE-ATROPINE 99832624674 No Longer Active January Russ APRN Active AMOXICILLIN 500 MG ORAL TABLET 2 tabs twice a day for 10 days 07/09/11 AMOXICILLIN 76071821269 No Longer Active Brii Russ APRN Active CYCLOBENZAPRINE HCL 10 MG ORAL TABLET 1/2 - 1 tablet b y mouth three times daily as needed for muscle spasm/pain CYCLOBENZAPRINE HCL 48067565857 No Longer Active Arie Casper MD Active LOMOTIL 2.5-0.025 MG ORAL TABLET 1 to 2 four times a day as needed for diarrhea DIPHENOXYLATE-ATROPINE 59464568361 No Longer Active Fozia Caspre MD Active MACROBID 100 MG ORAL CAPSULE 1 cap by mouth twice daily NITROFURANTOIN MONOHYD MACRO 89284173715 No Longer Active Arie Casper MD Active ZYRTEC ALLERGY 10 MG ORAL CAPSULE 1 po qd CE TIRIZINE HCL 03859152002 No Longer Active Arie Casper MD Active AZITHROMYCIN 250 MG ORAL TABLET 2 po qd x 1 day, then 1 po q d x 4 days AZITHROMYCIN 39878299290 No Longer Active Jillarlen salgado COST COORDINATOR Active PREDNISONE 20 MG ORAL TABLET 2 tabs daily for 3 days, 1 tab daily for 3 days, 1/2 tab daily for 2 days PREDNISONE 39461689466 No Longer Active Jillarlen Heaton COST COORDINATOR Active PROMETHAZINE HCL 25 MG ORAL TABLET 1 four times a day as nee ded for vomiting PROMETHAZINE HCL 11289628420 No Longer Active Myrna Roberto MD Active BACTRIM DS 800-160 MG ORAL TABLET 1 twice a day 05/30 SULFAMETHOXAZOLE-TRIMETHOPRIM 38784025513 No Longer Active Myrna Roberto MD Active VICKS DAYQUIL SEVERE COLD/FLU TABLET 1 tab every 6 hours prn 201 02/22/17 [id number] TABS 86456583231 No Longer Active Chris Roberto MD Active GUAIFENESIN-CODEINE 100-10 MG/5ML ORAL SYRUP 2 tsp every 6 hours prn GUAIFENESIN-CODEINE 62295166911 No Longer Active Myrna Roberto MD Active NAPROXEN 500 MG ORAL TABLET one tab PO BID NAPR OXEN 62103017811 No Longer Active Myrna Roberto MD Active AUGMENTIN 875-125 MG ORAL TABLET 1 tab by mouth twice daily with food AMOXICILLIN-POT CLAVULANATE 80530454660 No Longer Act zaid Liliana Estrada MD PhD Active AMOXICILLIN 500 MG ORAL CAPSULE 1 tab by mouth 3 times daily 201 02/21/05 AMOXICILLIN 44936243590 No Longer Active Liliana Estrada MD PhD Active TESSALON PERLES 100 MG ORAL CAPSULE 1 tablet by mouth 3 times da cory BENZONATATE 32494821897 No Longer Active Liliana Estrada MD PhD Active FLAGYL 500 MG ORAL TABLET 1 tablet by mouth two times daily 2014 METRONIDAZOLE 30887204063 No Longer Active Nilam Plattida Ac tive ZITHROMAX 250 MG ORAL TABLET 2 po today, then 1 po q days 2-5 20 06/08/16 AZITHROMYCIN 01607170753 No Longer Active Arie Casper MD Active VITAMINS 0.8 MG ORAL TABLET take 1 tab po qday [id number] 30097307807 No Longer Active Arie Casper MD Active IBUPROFEN 800 MG ORAL TABLET take one po Q 8 hours 201 02/01/16 IBUPROFEN 33843468366 No Longer Active Arie Casper MD Acti ve [facility] TUSSIN COUGH/COLD CF 5-10-100 MG/5ML ORAL LIQUID 2 teasp oons every 4 hours [id number] 61662958443 No Longer Active Blaine Casper MD Active COMTREX COLD/COUGH DAY/NITE MS 5-2-10-325 MG ORAL 2 caps deja ry 4 hours [id number] 10223383010 No Longer Active Da aleksandra Casper MD Active CHLORASEPTIC MAX SORE THROAT 15-10 MG MOUTH/THROAT LOZENGE 1 every 2 hours prn BENZOCAINE-MENTHOL 59140897052 No Longer Active Arie Casper MD Active PREDNISONE 20 MG ORAL TABLET 2 tabs daily for 3 days, 1 tab daily for 3 days, 1/2 tab daily for 2 days PREDNISONE 90710693665 No Longer Active Jose Zhong MD Active AZITHROMYCIN 250 MG ORAL TABLET 2 po qd x 1 day, then 1 po q d x 4 days AZITHROMYCIN 51699441613 No Longer Active Jose Mcwilliams MD Active ZOFRAN ODT 4 MG ORAL TABLET DISINTEGRATING 1 po q6hr PRN Nausea ONDANSETRON 52020078223 No Longer Active Rich Rosales MD Active ZOFRAN 4 MG ORAL TABLET 1 tablet every 4 hours ONDANSETRON HCL 24482646753 No Longer Active Rich Rosales MD Activ e MUCINEX 600 MG ORAL TABLET EXTENDED RELEASE 12 HOUR Ta ke 1-2 tablets every 12 hours GUAIFENESIN 06648947748 No Longer Active Rich Rosales MD Active BACTRIM 400-80 MG ORAL TABLET take one po BID SULFAMETHOXAZOLE-TRIMETHOPRIM 21117331138 No Longer Active Abelardo HERNANDEZ Active AZITHROMYCIN 500 MG ORAL TABLET 1 PO q day x 6 days 20 03/02/23 AZITHROMYCIN 75320079735 No Longer Active Tin HERNANDEZ Activ e ZITHROMAX 250 MG ORAL TABLET 2 po today, then 1 po q days 2-5 20 10/03/08 AZITHROMYCIN 58396218080 No Longer Active Arie Casper MD Active ZITHROMAX 250 MG ORAL TABLET 2 po today, then 1 po q days 2-5 20 09/23/25 AZITHROMYCIN 81241105300 No Longer Active Arie Casper MD Active AMOXICILLIN 500 MG ORAL CAPSULE 1 tab by mouth 3 times daily 201 11/24/09 AMOXICILLIN 64960001248 No Longer Active Arie Casper MD Active BACTRIM DS 800-160 MG ORAL TABLET 1 tab by mouth twice daily 201 11/03/14 TRIMETHOPRIM-SULFAMETHOXAZOLE 98467521614 No Longer Active Fozia Casper MD Active AMOXICILLIN 500 MG ORAL TABLET take 1 tab po TID 08/05 AMOXICILLIN 15386165905 No Longer Active Arie Casper MD Acti ve BACTRIM DS 800-160 MG ORAL TABLET 1 tab by mouth twice daily 201 11/03/14 BACTRIM DS 800-160 MG ORAL TABLET 829666 TRIMETHOPRIM-SULFAMETHOXAZOLE Inactive MUCINEX 600 MG ORAL TABLET EXTENDED RELEASE 12 HOUR Ta ke 1-2 tablets every 12 hours MUCINEX 600 MG ORAL TABLET EXTENDED RELEA SE 12 HOUR GUAIFENESIN Inactive ZOFRAN 4 MG ORAL TABLET 1 tablet every 4 hours ZOFRAN 4 MG ORAL TABLET 425540 ONDANSETRON HCL Inactive ZOFRAN ODT 4 MG ORAL TABLET DISINTEGRATING 1 po q6hr PRN Nausea ZOFRAN ODT 4 MG ORAL TABLET DISINTEGRATING 167730 ONDAN SETRON Inactive CHLORASEPTIC MAX SORE THROAT 15-10 MG MOUTH/THROAT LOZENGE 1 every 2 hours prn CHLORASEPTIC MAX SORE THROAT 15-10 MG MOUTH/THROAT LOZENGE BENZOCAINE-MENTHOL Inactive COMTREX COLD/COUGH DAY/NITE MS 5-2-10-325 MG ORAL 2 caps deja ry 4 hours COMTREX COLD/COUGH DAY/NITE MS 5-2-10-325 MG ORA L [id number] Inactive [facility] TUSSIN COUGH/COLD CF 5-10-100 MG/5ML ORAL LIQUID 2 teasp oons every 4 hours [facility] TUSSIN COUGH/COLD CF 5-10-100 MG/5ML ORAL LI QUID [id number] Inactive IBUPROFEN 800 MG ORAL TABLET take one po Q 8 hours 201 02/01/16 IBUPROFEN 800 MG ORAL TABLET IBUPROFEN Inactive VITAMINS 0.8 MG ORAL TABLET take 1 tab po qday VITAMINS 0.8 MG ORAL TABLET [id number]-FA Inactive TESSALON PERLES 100 MG ORAL CAPSULE 1 tablet by mouth 3 times da cory TESSALON PERLES 100 MG ORAL CAPSULE 676483 BENZONATATE Inactive AMOXICILLIN 500 MG ORAL CAPSULE 1 tab by mouth 3 times daily 201 02/21/05 AMOXICILLIN 500 MG ORAL CAPSULE 040754 AMOXICILLIN Inactive GUAIFENESIN-CODEINE 100-10 MG/5ML ORAL SYRUP 2 tsp every 6 hours prn GUAIFENESIN-CODEINE 100-10 MG/5ML ORAL SYRUP 569193 GUAIFENESIN-CODEINE Inactive VICKS DAYQUIL SEVERE COLD/FLU TABLET 1 tab every 6 hours prn 201 02/22/17 VICKS DAYQUIL SEVERE COLD/FLU TABLET PHENYLEPHRI [id number]-[id number] TABS Inactive BACTRIM DS 800-160 MG ORAL TABLET 1 twice a day 05/30 BACTRIM DS 800-160 MG ORAL TABLET 641994 SULFAMETHOXAZOLE-TRIMETHOPRIM Inactiv e PROMETHAZINE HCL 25 MG ORAL TABLET 1 four times a day as nee ded for vomiting PROMETHAZINE HCL 25 MG ORAL TABLET 656789 PROMETHAZINE HCL Inactive ZYRTEC ALLERGY 10 MG ORAL CAPSULE 1 po qd ZYRTEC ALLERGY 10 MG ORAL CAPSULE CETIRIZINE HCL Inactive MACROBID 100 MG ORAL CAPSULE 1 cap by mouth twice daily MACROBID 100 MG ORAL CAPSULE 1032915 NITROFURANTOIN MONOHYD MACRO In active LOMOTIL 2.5-0.025 MG ORAL TABLET 1 to 2 four times a day as needed for diarrhea LOMOTIL 2.5-0.025 MG ORAL TABLET 0069511 DIPHENOXYLATE-ATROPINE Inactive CYCLOBENZAPRINE HCL 10 MG ORAL TABLET 1/2 - 1 tablet b y mouth three times daily as needed for muscle spasm/pain CYCLOBEN ZAPRINE HCL 10 MG ORAL TABLET 508802 CYCLOBENZAPRINE HCL Inactive AMOXICILLIN 500 MG ORAL TABLET 2 tabs twice a day for 10 days 20 07/09/11 AMOXICILLIN 500 MG ORAL TABLET 164915 AMOXICILLIN I nactive LOMOTIL 2.5-0.025 MG ORAL TABLET 1 to 2 four times a day as needed for diarrhea LOMOTIL 2.5-0.025 MG ORAL TABLET 1426486 DIPHENOXYLATE-ATROPINE Inactive ZOFRAN 4 MG ORAL TABLET 1 TAB PO Q 6 HRS PRN NAUSEA 07/10/15 ZOFRAN 4 MG ORAL TABLET 084289 ONDANSETRON HCL Inactive CITRATE OF MAGNESIA ORAL SOLUTION 1 bottle today for constipatio n CITRATE OF MAGNESIA ORAL SOLUTION 3929995 MAGNESIUM CITR ATE Inactive PROMETHAZINE HCL 12.5 MG ORAL TABLET 1 tablet by mouth every 6 hours as needed for nausea/vomiting PROMETHAZINE HCL 12.5 MG ORA L TABLET 992616 PROMETHAZINE HCL Inactive PREDNISONE 20 MG ORAL TABLET 1 tablet twice daily for 2 days, then 1 tablet once daily for 2 days PREDNISONE 20 MG ORAL TABLET 304138 PREDNISONE Inactive ALPRAZOLAM 0.25 MG ORAL TABLET 1 tablet by mouth every 8 hours as needed for stress ALPRAZOLAM 0.25 MG ORAL TABLET 371064 ALPRA ZOLAM Inactive FLONASE 50 MCG/ACT NASAL SUSPENSION 1 spray each nostr il twice daily for allergies and runny nose until gone FLON ASE 50 MCG/ACT NASAL SUSPENSION 6750570 FLUTICASONE PROPIONATE Inactive PREDNISONE 20 MG ORAL TABLET 1 tablet daily for airway inflammat ion PREDNISONE 20 MG ORAL TABLET 472216 PREDNISONE [place] ctive NAPROXEN 500 MG ORAL TABLET Take 1 tab BID NAPROXEN 500 MG ORAL TABLET 431258 NAPROXEN Inactive ZOLOFT 50 MG ORAL TABLET 1 tablet by mouth daily 12/08 ZOLOFT 50 MG ORAL TABLET 505172 SERTRALINE HCL Inactive LOMOTIL 2.5-0.025 MG ORAL TABLET 1 tab po four times a day as needed for diarrhea LOMOTIL 2.5-0.025 MG ORAL TABLET 8361569 DIPHENOXYLATE-ATROPINE Inactive CETIRIZINE HCL 10 MG ORAL TABLET 1 po qd PRN Allergies CETIRIZINE HCL 10 MG ORAL TABLET 0299324 CETIRIZINE HCL Inactiv e TUSSIONEX PENNKINETIC ER 10-8 MG/5ML ORAL SUSPENSION E XTENDED RELEASE 5ml po q12hr PRN Cough TUSSIONEX PENNKINETI C ER 10-8 MG/5ML ORAL SUSPENSION EXTENDED RELEASE HYDROCOD POLST-CHLORPHEN POLST I nactive NEXPLANON IMPLANT right arm subcutaneously NEXPLANON IMPLANT ETONOGESTREL IMPL Inactive PROTONIX 40 MG ORAL TABLET DELAYED RELEASE 1 po q a.m. PROTONIX 40 MG ORAL TABLET DELAYED RELEASE 374674 PANTOPRAZOLE SODI UM Inactive CHERATUSSIN AC 100-10 MG/5ML ORAL SYRUP 1 tsp by mouth every 4 hours as needed for cough CHERATUSSIN AC 100-10 MG/5ML ORAL SYRUP 9 86562 GUAIFENESIN-CODEINE Inactive GUAIFENESIN DM 400-20 MG ORAL TABLET 1 pill by mouth t wice daily, if needed for cough GUAIFENESIN DM 400-20 MG ORAL TABLET 1147 685 DEXTROMETHORPHAN-GUAIFENESIN Inactive AMOXICILLIN 500 MG ORAL TABLET take 1 tab po TID 08/05 AMOXICILLIN 500 MG ORAL TABLET 581513 AMOXICILLIN Inactive AMOXICILLIN 500 MG ORAL CAPSULE 1 tab by mouth 3 times daily 201 11/24/09 AMOXICILLIN 500 MG ORAL CAPSULE 739628 AMOXICILLIN Inactive ZITHROMAX 250 MG ORAL TABLET 2 po today, then 1 po q days 2-5 20 09/23/25 ZITHROMAX 250 MG ORAL TABLET 713357 AZITHROMYCIN [place] ctive ZITHROMAX 250 MG ORAL TABLET 2 po today, then 1 po q days 2-5 20 10/03/08 ZITHROMAX 250 MG ORAL TABLET 947645 AZITHROMYCIN [place] ctive AZITHROMYCIN 500 MG ORAL TABLET 1 PO q day x 6 days 20 03/02/23 AZITHROMYCIN 500 MG ORAL TABLET 3346944 AZITHROMYCIN Inactive BACTRIM 400-80 MG ORAL TABLET take one po BID BACTRIM 400- 80 MG ORAL TABLET 281620 SULFAMETHOXAZOLE-TRIMETHOPRIM Inactive AZITHROMYCIN 250 MG ORAL TABLET 2 po qd x 1 day, then 1 po q d x 4 days AZITHROMYCIN 250 MG ORAL TABLET 356086 AZITHROMY ALLISON Inactive PREDNISONE 20 MG ORAL TABLET 2 tabs daily for 3 days, 1 tab daily for 3 days, 1/2 tab daily for 2 days PREDNISONE 20 MG ORAL T ABLET 019102 PREDNISONE Inactive ZITHROMAX 250 MG ORAL TABLET 2 po today, then 1 po q days 2-5 20 06/08/16 ZITHROMAX 250 MG ORAL TABLET 537738 AZITHROMYCIN [place] ctive FLAGYL 500 MG ORAL TABLET 1 tablet by mouth two times daily 2014 FLAGYL 500 MG ORAL TABLET 301698 METRONIDAZOLE Inacti ve AUGMENTIN 875-125 MG ORAL TABLET 1 tab by mouth twice daily with food AUGMENTIN 875-125 MG ORAL TABLET 300993 AMOXICIL ELSA-POT CLAVULANATE Inactive NAPROXEN 500 MG ORAL TABLET one tab PO BID NAPROXEN 500 MG ORAL TABLET 918415 NAPROXEN Inactive PREDNISONE 20 MG ORAL TABLET 2 tabs daily for 3 days, 1 tab daily for 3 days, 1/2 tab daily for 2 days PREDNISONE 20 MG ORAL T ABLET 511397 PREDNISONE Inactive AZITHROMYCIN 250 MG ORAL TABLET 2 po qd x 1 day, then 1 po q d x 4 days AZITHROMYCIN 250 MG ORAL TABLET 656271 AZITHROMY ALLISON Inactive PREDNISONE 20 MG ORAL TABLET 2 tabs daily for 3 days, 1 tab daily for 3 days, 1/2 tab daily for 2 days PREDNISONE 20 MG ORAL T ABLET 832686 PREDNISONE Inactive ZITHROMAX Z-EMIL 250 MG ORAL TABLET 2 today, then 1 daily for 4 d ays ZITHROMAX Z-EMIL 250 MG ORAL TABLET 153399 AZITHROMYCIN Inactive CEFDINIR 300 MG ORAL CAPSULE [...] days PREDNISONE 20 MG ORAL T ABLET 770840 PREDNISONE Inactive BACTRIM DS 800-160 MG ORAL TABLET 1 tab by mouth twice daily 201 05/02/30 BACTRIM DS 800-160 MG ORAL TABLET 942026 TRIMETHOPRIM-SULFAMETHOXAZOLE Inactive ZITHROMAX Z-EMIL 250 MG ORAL TABLET 2 today, then 1 daily for 4 d ays ZITHROMAX Z-EMIL 250 MG ORAL TABLET 901537 AZITHROMYCIN Inactive TAMIFLU 75 MG ORAL CAPSULE 1 po BID x 5 days 0 TAMIFLU 75 MG ORAL CAPSULE 572503 OSELTAMIVIR PHOSPHATE Inactive CEFDINIR 300 MG ORAL CAPSULE 1 po BID x 10 days 01/03 CEFDINIR 300 MG ORAL CAPSULE 20030127 CEFDINIR Inactive ZITHROMAX Z-EMIL 250 MG TABS Take two tablets today and then 1 tablet daily for 4 days ZITHROMAX Z-EMIL 250 MG TABS 027532 AZITHROM YCIN Inactive Advance Directives Directive Description [...] 5.0-8.5 Encounters Code Encounter Date Provider Facility CPT-94223 Level 3 Est. Patient 11:49:34 FEATHER SHAPER Jessica boyd [facility] CPT-27034 Level 3 Est. Patient 14:55:50 FEATHER SHAPER Jose Zhong MD [facility] CPT-70310 Level 3 Est. Patient 10:21:41 FEATHER SHAPER Arie mcqueen MD [facility] CPT-29648 Level 3 Est. Patient 11:35:15 FEATHER SHAPER Arie mcqueen MD [facility]-75582 Level 3 Est. Patient 15:40:28 CDT Brii Are [facility] CPT-60877 Level 3 Est. Patient 16:40:36 CDT Arie mcqueen MD [facility] CPT-90618 Level 4 Est. Patient 15:29:22 FEATHER SHAPER Arie mcqueen MD [facility] CPT-00093 Level 3 Est. Patient 15:18:16 FEATHER SHAPER Jono black [facility] CPT-70935 Level 4 Est. Patient 12:08:40 FEATHER SHAPER Brii Are [facility] CPT-08034 Level 3 Est. Patient 09:24:42 CDT Brii Are [facility] CPT-15975 Level 3 Est. Patient 09:12:56 CDT Arie mcqueen MD [facility] CPT-02989 Level 3 Est. Patient 16:40:54 CDT Jose Zhong MD [facility]-08866 Level 2 Est. Patient 13:01:13 CDT Brii Are [facility] CPT-26820 Level 3 Est. Patient 11:55:30 FEATHER SHAPER Jono black [facility] CPT-89021 Level 3 Est. Patient 09:52:36 FEATHER SHAPER Brii escalante COST COORDINATOR [facility] CPT-09381 Level 3 Est. Patient 16:25:33 FEATHER SHAPER Rich Rosales MD [facility]-05476 Level 3 Est. Patient 20:33:55 CDT Arie mcqueen MD [facility]-59912 Level 3 Est. Patient 14:18:20 CDT Rich Rosales MD [facility]-60777 Level 4 Est. Patient 09:34:31 CDT Arie mcqueen MD [facility]-31490 Level 3 Est. Patient 09:08:55 FEATHER SHAPER Liliana vincent MD [facility]-26122 Level 3 Est. Patient 16:44:07 FEATHER SHAPER Arie mcqueen MD [facility]-39493 Level 3 Est. Patient 10:44:27 CDT Arie mcqueen MD [facility] CPT-46845 Level 3 Est. Patient 08:55:41 CDT Jose Zhong MD [facility]-06779 Level 3 Est. Patient 18:37:31 CDT Liliana vincent MD [facility]-39654 Level 3 Est. Patient 14:28:23 CDT Abelardo HERNANDEZ [facility]-98833 Level 3 Est. Patient 15:18:13 FEATHER SHAPER Arie mcqueen MD [facility]-57625 Level 3 Est. Patient 10:11:29 FEATHER SHAPER Arie mcqueen MD [facility]-95355 Level 3 Est. Patient 10:55:57 FEATHER SHAPER Jono black DO [facility] CPT-38359 Level 3 Est. Patient 17:29:05 CDT Arie mcqueen MD [facility] Procedures Code Procedure Name Date Entry Date Standard Desc ription CPT-03473 Nexplanon Removal 15:40:28 CDT CPT-82738 Sono transvag pelvis non OB uterus ovari es cervix - XRAY USE ONLY 08:58:14 FEATHER SHAPER CPT-27118 UA w micro - LAB USE ONLY 16:04:56 FEATHER SHAPER 2015 CPT-84268 Wet Prep/GEN - LAB USE ONLY 16:04:56 FEATHER SHAPER 20 08/10/29 CPT-07841 First Vx - Ix admin via ID I M or jet injects without counseling by physician 16:57:10 CDT CPT-77517 Fluzone Preservative Free Intramuscular Suspension 16:57:10 CDT CPT-J0696 Rocephin 1000 mg (Ceftriaxone) 11:49:23 CDT CPT-J1040 Depo Medrol 80 mg (Methyl Prednisolone A cetate) 11:49:23 CDT CPT-J1100 Decadron 8mg (Dexamethasone) 11:49:23 CDT 2 CPT-06179 Abx/Therapy Injection 11:49:23 CDT CPT-97173 Abx/Therapy Injection 11:49:23 CDT CPT-71432 Abd compl w upright 09:07:26 FEATHER SHAPER CPT-66572 Ear Wash 16:12:47 FEATHER SHAPER CPT-OV Office Visit 11:12:01 CDT CPT-OV Office Visit 15:30:23 CDT CPT-50685 Sono pelvis non OB uterus ovaries cervix 15:50:44 CDT CPT-42187 Hand comp min 3V 16:42:32 CDT CPT-94800 Abd compl w upright 12:17:01 CDT CPT-64546 Nexplanon Placement 15:07:39 FEATHER SHAPER CPT-56288 Removal of IUD 15:07:39 FEATHER SHAPER CPT-40354 TB Tubersol 12:09:32 CDT CPT-82183 TB Tubersol 13:55:43 CDT
--- OUTSIDE RECORDS SUMMARY | 2020-03-03 07:30 | XMS REPORT | Clinical Summary ---
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 Nausea alone URI 465.9 Active Jono Gagnon DO Acu te upper respiratory infections of unspecified site BREAST CANCER ICD-V16.3 Inactive Jose Marcelo COLON [...] Provider Patient Instruction PREDNISONE 20 MG TAB 1 tablet twice daily for 2 d ays, then 1 tablet once daily for 2 days PREDNISONE 26164722464 Active Jono Gagnon DO Active FLONASE 50 MCG/ACT SUSP 1 spray each nostril twice d aily for allergies and runny nose until gone FLUTICASONE PROPIONATE Active Jono Gagnon DO Active PROMETHAZINE HCL 12.5 MG TABS 1 tablet by mouth every 6 hours as needed for nausea/vomiting PROMETHAZINE HCL 65133784151 No Longe r Active Jono Gagnon DO Active CITRATE OF MAGNESIA ORAL SOLN 1 bottle today for constipation 20 07/10/15 MAGNESIUM CITRATE 69868245487 No Longer Active Jono Gagnon DO Active ZOFRAN 4 MG ORAL TABS 1 TAB PO Q 6 HRS PRN NAUSEA 2014 ONDANSETRON HCL 97748788715 No Longer Active Brii Larson APRN A ctive LOMOTIL 2.5-0.025 MG TAB 1 to 2 four times a day as needed f or diarrhea DIPHENOXYLATE-ATROPINE 48546941172 No Longer Active January Larson APRN Active AMOXICILLIN 500 MG TABS 2 tabs twice a day for 10 days AMOXICILLIN 53261697875 No Longer Active Brii Larson APRN Acti ve NEXPLANON IMPL ETONOGESTREL IMPL 31210051973 Active Rich Rosales MD Active CYCLOBENZAPRINE HCL 10 MG TABS 1/2 - 1 tablet by mouth three times daily as needed for muscle spasm/pain CYCLOBENZAPRINE HCL 02622782720 No Longer Active Arie Casper MD Active LOMOTIL 2.5-0.025 MG TABS 1 to 2 four times a day as needed for diarrhea DIPHENOXYLATE-ATROPINE 12621275560 No Longer Active Fozia Casper MD Active MACROBID 100 MG CAP 1 cap by mouth twice daily NITROFURANTOIN MONOHYD MACRO 45325633500 No Longer Active Arie Casper MD Active ZYRTEC ALLERGY 10 MG CAPS 1 po qd CETIRIZINE HCL 49496588369 No Longer Active Arie Casper MD Active AZITHROMYCIN 250 MG TABS 2 po qd x 1 day, then 1 po qd x 4 days AZITHROMYCIN 21135850708 No Longer Active Jillina Frazell INCOMING FREIGHT CLERK Active PREDNISONE 20 MG TAB 2 tabs daily for 3 days, 1 t ab daily for 3 days, 1/2 tab daily for 2 days PREDNISONE 62170769477 No Longer Active Jillina Frazell INCOMING FREIGHT CLERK Active PROMETHAZINE HCL 25 MG TABS 1 four times a day as needed for vomiting PROMETHAZINE HCL 75292430757 No Longer Active Myrna Roberto MD Active BACTRIM DS 800-160 MG TABS 1 twice a day SULFAMETHOXAZOLE-TRIMETHOPRIM 43557061143 No Longer Active Myrna Roberto MD Active VICKS DAYQUIL SEVERE COLD/FLU TABS 1 tab every 6 hours prn 12/10 [id number] TABS 21488365539 No Longer Active Myrna leigh MD Active GUAIFENESIN-CODEINE 100-10 MG/5ML ORAL SYRP 2 tsp every 6 hours prn GUAIFENESIN-CODEINE 21818581428 No Longer Active Myrna Roberto MD Active NAPROXEN 500 MG TAB one tab PO BID NAPROXEN 332 54232258 No Longer Active Myrna Roberto MD Active AUGMENTIN 875-125 MG TAB 1 tab by mouth twice daily with food 20 15/02/17 AMOXICILLIN-POT CLAVULANATE 78803732142 No Longer Active Liliana Estrada MD PhD Active AMOXICILLIN 500 MG CAP 1 tab by mouth 3 times daily 08/12/16 AMOXICILLIN 40829609111 No Longer Active Liliana Estrada MD PhD Acti ve TESSALON PERLES 100 MG CAP 1 tablet by mouth 3 times daily 11/01 BENZONATATE 49023676307 No Longer Active Liliana Estrada MD PhD Active FLAGYL 500 MG TAB 1 tablet by mouth two times daily 07/11/29 METRONIDAZOLE 56948508051 No Longer Active Nilam Weber Active ZITHROMAX 250 MG TAB 2 po today, then 1 po q days 2-5 AZITHROMYCIN 17598406528 No Longer Active Arie Casper MD Acti ve VITAMINS 0.8 MG TABS take 1 tab po qday 08/08 [id number] 18008176974 No Longer Active Arie Casper MD Active IBUPROFEN 800 MG TABS take one po Q 8 hours IBU PROFEN 57989283645 No Longer Active Arie Casper MD Active [facility] TUSSIN COUGH/COLD CF 5-10-100 MG/5ML LIQD 2 teaspoons ev eliud 4 hours [id number] 11888963519 No Longer Active Blaine Casper MD Active COMTREX COLD/COUGH DAY/NITE MS 5-2-10-325 MG MISC 2 caps deja ry 4 hours [id number] 47508608784 No Longer Active Landon Casper MD Active CHLORASEPTIC MAX SORE THROAT 15-10 MG LOZG 1 every 2 hours prn 2 BENZOCAINE-MENTHOL 69352753152 No Longer Active Arie Marcelo Active PREDNISONE 20 MG TAB 2 tabs daily for 3 days, 1 t ab daily for 3 days, 1/2 tab daily for 2 days PREDNISONE 66288718030 No Longer Active Jose Zhong MD Active AZITHROMYCIN 250 MG TABS 2 po qd x 1 day, then 1 po qd x 4 days AZITHROMYCIN 05186798367 No Longer Active Jose Zhong MD Active ZOFRAN ODT 4 MG TBDP 1 po q6hr PRN Nausea ONDAN SETRON 65636013172 No Longer Active Rich Rosales MD Active ZOFRAN 4 MG TABS 1 tablet every 4 hours ONDANSE JERRELL HCL 55197272832 No Longer Active Rich Rosales MD Active MUCINEX 600 MG [id number]-GKA Take 1-2 tablets every 12 hours GUAIFENESIN 29005439922 No Longer Active Rich Rosales MD Activ e BACTRIM 400-80 MG TABS take one po BID SULFAMETHOXAZOLE-TRIMETHOPRIM 10246077537 No Longer Active Abelardo HERNANDEZ Active AZITHROMYCIN 500 MG TABS 1 PO q day x 6 days AZ ITHROMYCIN 76918857768 No Longer Active Tin HERNANDEZ Active ZITHROMAX 250 MG TAB 2 po today, then 1 po q days 2-5 AZITHROMYCIN 47070074467 No Longer Active Arie Casper MD Acti ve ZITHROMAX 250 MG TAB 2 po today, then 1 po q days 2-5 AZITHROMYCIN 98313199448 No Longer Active Arie Casper MD Acti ve AMOXICILLIN 500 MG CAP 1 tab by mouth 3 times daily 20 09/23/20 AMOXICILLIN 67406994045 No Longer Active Arie Casper MD Acti ve BACTRIM DS 800-160 MG TAB 1 tab by mouth twice daily 2 TRIMETHOPRIM-SULFAMETHOXAZOLE 35625865671 No Longer Active Arie Casper MD Active AMOXICILLIN 500 MG TABS take 1 tab po TID AMOXI CILLIN 75064809567 No Longer Active Arie Casper MD Active BACTRIM DS 800-160 MG TAB 1 tab by mouth twice daily 2 BACTRIM DS 800-160 MG TAB 19821226 TRIMETHOPRIM-SULFAMETHOXAZOLE Inac tive MUCINEX 600 MG [id number] Take 1-2 tablets every 12 hours MUCINEX 600 MG [id number] GUAIFENESIN Inactive ZOFRAN 4 MG TABS 1 tablet every 4 hours ZOFRAN 4 MG TABS 908328 ONDANSETRON HCL Inactive ZOFRAN ODT 4 MG TBDP 1 po q6hr PRN Nausea ZOFRAN ODT 4 MG TBDP 206131 ONDANSETRON Inactive CHLORASEPTIC MAX SORE THROAT 15-10 MG LOZG 1 every 2 hours prn 2 014/04/30 CHLORASEPTIC MAX SORE THROAT 15-10 MG LOZG BENZO ARINA-MENTHOL Inactive COMTREX COLD/COUGH DAY/NITE MS 5-2-10-325 MG MISC 2 caps deja ry 4 hours COMTREX COLD/COUGH DAY/NITE MS 5-2-10-325 MG MIS C [id number] Inactive [facility] TUSSIN COUGH/COLD CF 5-10-100 MG/5ML LIQD 2 teaspoons ev eliud 4 hours [facility] TUSSIN COUGH/COLD CF 5-10-100 MG/5ML LIQD [id number] Inactive IBUPROFEN 800 MG TABS take one po Q 8 hours IBUPROFEN 800 MG TABS IBUPROFEN Inactive VITAMINS 0.8 MG TABS take 1 tab po qday 08/08 VITAMINS 0.8 MG TABS [id number] Inactive TESSALON PERLES 100 MG CAP 1 tablet by mouth 3 times daily 11/01 TESSALON PERLES 100 MG CAP 993870 BENZONATATE Inact zaid AMOXICILLIN 500 MG CAP 1 tab by mouth 3 times daily 08/12/16 AMOXICILLIN 500 MG CAP 904701 AMOXICILLIN Inactive GUAIFENESIN-CODEINE 100-10 MG/5ML ORAL SYRP 2 tsp every 6 hours prn GUAIFENESIN-CODEINE 100-10 MG/5ML ORAL SYRP 532302 GUAIFENESIN-CODEINE Inactive VICKS DAYQUIL SEVERE COLD/FLU TABS 1 tab every 6 hours prn 12/10 VICKS DAYQUIL SEVERE COLD/FLU TABS PHENYLEPHRINE -DM-GG-APAP TABS Inactive BACTRIM DS 800-160 MG TABS 1 twice a day BACTRIM DS 800- 160 MG TABS 671892 SULFAMETHOXAZOLE-TRIMETHOPRIM Inactive PROMETHAZINE HCL 25 MG TABS 1 four times a day as needed for vomiting PROMETHAZINE HCL 25 MG TABS 627508 PROMETHAZINE HCL Inactive ZYRTEC ALLERGY 10 MG CAPS 1 po qd ZY RTEC ALLERGY 10 MG CAPS CETIRIZINE HCL Inactive MACROBID 100 MG CAP 1 cap by mouth twice daily MACROBID 100 MG CAP 8757014 NITROFURANTOIN MONOHYD MACRO Inactive LOMOTIL 2.5-0.025 MG TABS 1 to 2 four times a day as needed for diarrhea LOMOTIL 2.5-0.025 MG TABS 6401862 DIPHENOXYLATE-A TROPINE Inactive CYCLOBENZAPRINE HCL 10 MG TABS 1/2 - 1 tablet by mouth three times daily as needed for muscle spasm/pain CYCLOBENZAP RINE HCL 10 MG TABS 842105 CYCLOBENZAPRINE HCL Inactive AMOXICILLIN 500 MG TABS 2 tabs twice a day for 10 days AMOXICILLIN 500 MG TABS 291772 AMOXICILLIN Inactive LOMOTIL 2.5-0.025 MG TAB 1 to 2 four times a day as needed f or diarrhea LOMOTIL 2.5-0.025 MG TAB 2994971 DIPHENOXYLATE-AT ROPINE Inactive ZOFRAN 4 MG ORAL TABS 1 TAB PO Q 6 HRS PRN NAUSEA 2014 ZOFRAN 4 MG ORAL TABS 713812 ONDANSETRON HCL Inactive CITRATE OF MAGNESIA ORAL SOLN 1 bottle today for constipation 20 07/10/15 CITRATE OF MAGNESIA ORAL SOLN 1440498 MAGNESIUM CITRATE Inactive PROMETHAZINE HCL 12.5 MG TABS 1 tablet by mouth every 6 hours as needed for nausea/vomiting PROMETHAZINE HCL 12.5 MG TABS 201233 PROMETHAZINE HCL Inactive AMOXICILLIN 500 MG TABS take 1 tab po TID AMOXICILLIN 500 MG TABS 377852 AMOXICILLIN Inactive AMOXICILLIN 500 MG CAP 1 tab by mouth 3 times daily 09/23/20 AMOXICILLIN 500 MG CAP 009583 AMOXICILLIN Inactive ZITHROMAX 250 MG TAB 2 po today, then 1 po q days 2-5 ZITHROMAX 250 MG TAB 7264611 AZITHROMYCIN Inactive ZITHROMAX 250 MG TAB 2 po today, then 1 po q days 2-5 ZITHROMAX 250 MG TAB 0618788 AZITHROMYCIN Inactive AZITHROMYCIN 500 MG TABS 1 PO q day x 6 days 3 AZITHROMYCIN 500 MG TABS 9635520 AZITHROMYCIN Inactive BACTRIM 400-80 MG TABS take one po BID BA CTRIM 400-80 MG TABS 824371 SULFAMETHOXAZOLE-TRIMETHOPRIM Inactive AZITHROMYCIN 250 MG TABS 2 po qd x 1 day, then 1 po qd x 4 days AZITHROMYCIN 250 MG TABS 1287643 AZITHROMYCIN Inactiv e PREDNISONE 20 MG TAB 2 tabs daily for 3 days, 1 t ab daily for 3 days, 1/2 tab daily for 2 days PREDNISONE 20 MG TAB 569297 PREDNISON E Inactive ZITHROMAX 250 MG TAB 2 po today, then 1 po q days 2-5 ZITHROMAX 250 MG TAB 0224623 AZITHROMYCIN Inactive FLAGYL 500 MG TAB 1 tablet by mouth two times daily 07/11/29 FLAGYL 500 MG TAB 403633 METRONIDAZOLE Inactive AUGMENTIN 875-125 MG TAB 1 tab by mouth twice daily with food 08/12/16 AUGMENTIN 875-125 MG TAB 305308 AMOXICILLIN-POT CLAVULA ANGELO Inactive NAPROXEN 500 MG TAB one tab PO BID NAPROXEN 500 MG TAB 559882 NAPROXEN Inactive PREDNISONE 20 MG TAB 2 tabs daily for 3 days, 1 t ab daily for 3 days, 1/2 tab daily for 2 days PREDNISONE 20 MG TAB 494837 PREDNISON E Inactive AZITHROMYCIN 250 MG TABS 2 po qd x 1 day, then 1 po qd x 4 days AZITHROMYCIN 250 MG TABS 3857975 AZITHROMYCIN Inactiv e Advance Directives Directive Description [...] 276 10^3/MM^3 10*3/mm3 142-424 Lab Report: Chlamydia/GC APTIMA/47656 - Lab chlamydia DNA probe NOT DETECTED NOT DETECTED Lab Report: Chlamydia/GC APTIMA/28066 - Microbiology Neisseria gonorrhoeae DNA probe NOT DETECTED NO T DETECTED Lab Report: Comp. Metabolic Panel - Chem istry sodium, serum 139 mmol/L 820-544 8058/12/15 carbon dioxide, venous blood 30.2 mmol/L 21.0-32 .0 potassium, serum 3.4 mmol/L 3.5-5.2 chloride, serum 101 mmol/L 98-107 blood glucose 92 mg/dL 65-110 urea nitrogen, blood 5 mg/dL 7-18 creatinine, serum 0.81 mg/dL 0.55-1.30 alanine aminotransferase (SGPT), serum 20 U/L 12-78 aspartate aminotransferase (SGOT), serum 10 U/L 15-37 calcium, serum 8.4 mg/dL 8.5-10.1 bilirubin, serum, total 0.60 mg/dL 0.00-1.00 Lab Report: HIV-1/2 Agn/Darcy/36857, HEPAT ITIS PANEL, ACUTE W/REFLE - Chemistry hepatitis B surface antigen NON-REACTIVE NON-RE ACTIVE Lab Report: RapidStrep Rflx/Cx - Lab Microbial identification kit, rapid strep method Negative Negative Lab Report: UADIP W/MICRO, AUTO - Chemis try RBC, urine, dipstick Negative Negative RBC, urine, dipstick 2+ Negative protein, total [...] ative Encounters Code Encounter Date Provider Facility CPT-42674 Level 3 Est. 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 Patient 09:52:36 CARROTING 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 Steve CABRERA [facility] CPT-62312 Level 3 Est. Patient 16:25:33 CARROTING 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 Rich Rosales MD [facility]-84629 Level 3 Est. Patient 20:33:55 CDT Arie mcqueen MD [facility]-07133 Level 3 Est. Patient 14:18:20 CDT Rich Rosales MD [facility] CPT-88752 Level 4 Est. Patient 09:34:31 CDT Arie mcqueen MD [facility]-86385 Level 3 Est. Patient 09:08:55 CARROTING 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 Liliana vincent MD [facility]-02678 Level 3 Est. Patient 16:44:07 CARROTING 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 Arie mcqueen MD [facility]-16860 Level 3 Est. Patient 10:44:27 CDT Arie mcqueen MD [facility]-63342 Level 3 Est. Patient 08:55:41 CDT Jose Zhong MD [facility]-55767 Level 3 Est. Patient 18:37:31 CDT Liliana vincent MD [facility]-28189 Level 3 Est. Patient 14:28:23 CDT Abelardo HERNANDEZ [facility]-03766 Level 3 Est. Patient 15:18:13 CARROTING 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 Arie mcqueen MD [facility] CPT-73674 Level 3 Est. Patient 10:11:29 CARROTING 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 Arie mcqueen MD [facility] CPT-96356 Level 3 Est. Patient 10:55:57 CARROTING 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 Jono black DO [facility] CPT-99698 Level 3 Est. Patient 17:29:05 CDT Arie mcqueen MD [facility] Procedures Code Procedure Name Date Entry Date Standard Desc ription CPT-73454 Abd compl w upright 09:07:26 CARROTING 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 CPT-90035 Ear Wash 16:12:47 CARROTING 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 CPT-OV Office Visit 11:12:01 CDT CPT-OV Office Visit 15:30:23 CDT CPT-48028 Sono pelvis non OB uterus ovaries cervix 15:50:44 CDT CPT-15366 Hand comp min 3V 16:42:32 CDT CPT-41312 Abd compl w upright 12:17:01 CDT CPT-76015 Nexplanon Placement 15:07:39 CARROTING 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 CPT-85631 Removal of IUD 15:07:39 CARROTING 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 CPT-98946 TB Tubersol 12:09:32 CDT CPT-58367 TB Tubersol 13:55:43 CDT
--- OUTSIDE RECORDS SUMMARY | 2020-03-03 07:31 | XMS REPORT | Clinical Summary ---
Author Author Admin, Diamante Marcelo Organization [employer] Address Unknown Phone Unavailable Allergies, Adverse Reactions, [...] cute pharyngitis Nausea 787.02 Active Brii Larson HOG FEEDER Nausea alone URI 465.9 Active Jono Gagnon DO Acu te upper respiratory infections of unspecified site Allergic rhinitis 477.9 Active Brii Christianson PRN Allergic rhinitis, cause unspecified Abdominal pain, right lower quadrant 789.03 Active Jose Zhong MD Abdominal pain, right lower quadrant Urinary frequency 788.41 Inactive Roseann Crawford Urinary frequency Urinary frequency 788.41 Active 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, [employer] Urinary frequency Sinusitis - acute 461.9 Active Brii Christianson PRN Acute sinusitis, unspecified Anxiety with depression 300.4 Active Glenn Larson HOG FEEDER Dysthymic disorder URI 465.9 Active Jono Gagnon DO Acu te upper respiratory infections of unspecified site Vaginal bleeding 623.8 Active Brii MARROQUIN RN Other specified noninflammatory disorders of vagina High risk sexual behavior V69.2 Active Arie Casper MD High-risk sexual behavior GERD 530.81 Active Arie Casper MD Esophageal reflux Encounter for surveillance of implantable subdermal contraceptiv e Active Brii Larson H[employer] FE[employer]ER Vaginal bleeding 623.8 Active Arie Casper MD [...] Liliana Estrada MD PhD Diarrhea ICD-787.91 Inactive oJse Marcelo Thumb pain, right ICD-729.5 Inactive Jose [...] 4 hours as needed for cough GUAIFENESIN-CODEINE 86399095064 Active Blaine Casper MD Active ZITHROMAX Z-EMIL 250 MG ORAL TABLET 2 today, then 1 daily for 4 d ays AZITHROMYCIN 13497067919 No Longer Active Arie Casper MD Active PROTONIX 40 MG ORAL TABLET DELAYED RELEASE 1 po q a.m. PANTOPRAZOLE SODIUM 01864743046 No Longer Active Arie Casper MD Active BACTRIM DS 800-160 MG ORAL TABLET 1 tab by mouth twice daily 201 05/02/30 TRIMETHOPRIM-SULFAMETHOXAZOLE 38176309892 No Longer Active R [facility] Active NEXPLANON IMPLANT right arm subcutaneously ETONOGESTREL IMPL 39628862231 No Longer Active Brii Larson APRN Acti ve TUSSIONEX PENNKINETIC ER 10-8 MG/5ML ORAL SUSPENSION E XTENDED RELEASE 5ml po q12hr PRN Cough HYDROCOD POLST-CHLORPHEN POLST 5 6688516996 No Longer Active Brii Larson APRN Active CETIRIZINE HCL 10 MG ORAL TABLET 1 po qd PRN Allergies CETIRIZINE HCL 34977227585 No Longer Active Brii Larson APRN Ac tive PREDNISONE 20 MG ORAL TABLET 2 tabs daily for 3 days, 1 tab daily for 3 days, 1/2 tab daily for 2 days PREDNISONE 00069593345 No Longer Active Arie Casper MD Active LOMOTIL 2.5-0.025 MG ORAL TABLET 1 tab po four times a day as needed for diarrhea DIPHENOXYLATE-ATROPINE 02059570822 No Lo nger Active Arie Casper MD Active ZOLOFT 50 MG ORAL TABLET 1 tablet by mouth daily 12/08 SERTRALINE HCL 15537058420 No Longer Active Arie Casper MD Ac tive NAPROXEN 500 MG ORAL TABLET Take 1 tab BID NAPR OXEN 07781583983 No Longer Active Arie Casper MD Active CEFDINIR 300 MG ORAL CAPSULE 1 po BID x 10 days CEFDINIR 57927224275 No Longer Active Brii Larson APRN Active PREDNISONE 20 MG ORAL TABLET 1 tablet daily for airway inflammat ion PREDNISONE 09451150228 No Longer Active Brii Larson APRN Active CEFDINIR 300 MG ORAL CAPSULE 1 po BID x 10 days CEFDINIR 90796073094 No Longer Active Jono Gagnon DO Active FLONASE 50 MCG/ACT NASAL SUSPENSION 1 spray each nostr il twice daily for allergies and runny nose until gone FLUT ICASONE PROPIONATE 98964771173 No Longer Active Jono Gagnon DO Active ALPRAZOLAM 0.25 MG ORAL TABLET 1 tablet by mouth every 8 hours as needed for stress ALPRAZOLAM 54522709430 No Longer Active Jono Gagnon DO Active ZITHROMAX Z-EMIL 250 MG ORAL TABLET 2 today, then 1 daily for 4 d ays AZITHROMYCIN 24970134307 No Longer Active Arie Casper MD Active PREDNISONE 20 MG ORAL TABLET 2 tabs daily for 3 days, 1 tab daily for 3 days, 1/2 tab daily for 2 days PREDNISONE 18555239861 No Longer Active Brii Larson APRN Active PREDNISONE 20 MG ORAL TABLET 1 tablet twice daily for 2 days, then 1 tablet once daily for 2 days PREDNISONE 86735325702 No Longer Active Brii Larson APRN Active PROMETHAZINE HCL 12.5 MG ORAL TABLET 1 tablet by mouth every 6 hours as needed for nausea/vomiting PROMETHAZINE HCL 46313024934 No L onger Active Jono Gangon DO Active CITRATE OF MAGNESIA ORAL SOLUTION 1 bottle today for constipatio n MAGNESIUM CITRATE 50098281759 No Longer Active Jono Gagnon DO Active ZOFRAN 4 MG ORAL TABLET 1 TAB PO Q 6 HRS PRN NAUSEA 07/10/15 ONDANSETRON HCL 80567099159 No Longer Active Brii Larson APRN A ctive LOMOTIL 2.5-0.025 MG ORAL TABLET 1 to 2 four times a day as needed for diarrhea DIPHENOXYLATE-ATROPINE 97438354848 No Longer Active January Larson APRN Active AMOXICILLIN 500 MG ORAL TABLET 2 tabs twice a day for 10 days 20 07/09/11 AMOXICILLIN 15328490862 No Longer Active Brii Larson APRN Active CYCLOBENZAPRINE HCL 10 MG ORAL TABLET 1/2 - 1 tablet b y mouth three times daily as needed for muscle spasm/pain CYCLOBENZAPRINE HCL 48694835204 No Longer Active Arie Casper MD Active LOMOTIL 2.5-0.025 MG ORAL TABLET 1 to 2 four times a day as needed for diarrhea DIPHENOXYLATE-ATROPINE 99652518109 No Longer Active Fozia Casper MD Active MACROBID 100 MG ORAL CAPSULE 1 cap by mouth twice daily NITROFURANTOIN MONOHYD MACRO 30787461566 No Longer Active Arie Casper MD Active ZYRTEC ALLERGY 10 MG ORAL CAPSULE 1 po qd CE TIRIZINE HCL 26350449399 No Longer Active Arie Casper MD Active AZITHROMYCIN 250 MG ORAL TABLET 2 po qd x 1 day, then 1 po q d x 4 days AZITHROMYCIN 77873889587 No Longer Active Jillarlen Fra naomi HOG FEEDER Active PREDNISONE 20 MG ORAL TABLET 2 tabs daily for 3 days, 1 tab daily for 3 days, 1/2 tab daily for 2 days PREDNISONE 98225910396 No Longer Active Jillina Fradeepl HOG FEEDER Active PROMETHAZINE HCL 25 MG ORAL TABLET 1 four times a day as nee ded for vomiting PROMETHAZINE HCL 81379871339 No Longer Active Myrna Roberto MD Active BACTRIM DS 800-160 MG ORAL TABLET 1 twice a day 05/30 SULFAMETHOXAZOLE-TRIMETHOPRIM 91179106382 No Longer Active Myrna Roberto MD Active VICKS DAYQUIL SEVERE COLD/FLU TABLET 1 tab every 6 hours prn 201 02/22/17 [id number] TABS 81856549558 No Longer Active Chris Roberto MD Active GUAIFENESIN-CODEINE 100-10 MG/5ML ORAL SYRUP 2 tsp every 6 hours prn GUAIFENESIN-CODEINE 99241568931 No Longer Active Myrna Roberto MD Active NAPROXEN 500 MG ORAL TABLET one tab PO BID NAPR OXEN 88044455178 No Longer Active Myrna Roberto MD Active AUGMENTIN 875-125 MG ORAL TABLET 1 tab by mouth twice daily with food AMOXICILLIN-POT CLAVULANATE 28319553149 No Longer Act zaid Liliana Estrada MD PhD Active AMOXICILLIN 500 MG ORAL CAPSULE 1 tab by mouth 3 times daily 201 02/21/05 AMOXICILLIN 04945528986 No Longer Active Liliana Estrada MD PhD Active TESSALON PERLES 100 MG ORAL CAPSULE 1 tablet by mouth 3 times da cory BENZONATATE 03004543305 No Longer Active Liliana Estrada MD PhD Active FLAGYL 500 MG ORAL TABLET 1 tablet by mouth two times daily 2014 METRONIDAZOLE 67897636767 No Longer Active Nilam Doran tive ZITHROMAX 250 MG ORAL TABLET 2 po today, then 1 po q days 2-5 20 06/08/16 AZITHROMYCIN 90599361067 No Longer Active Arie Casper MD Active VITAMINS 0.8 MG ORAL TABLET take 1 tab po qday [id number] 56384786162 No Longer Active Arie Casper MD Active IBUPROFEN 800 MG ORAL TABLET take one po Q 8 hours 201 02/01/16 IBUPROFEN 22203649784 No Longer Active Arie Casper MD Acti ve [facility] TUSSIN COUGH/COLD CF 5-10-100 MG/5ML ORAL LIQUID 2 teasp oons every 4 hours [id number] 71229162359 No Longer Active Blaine Casper MD Active COMTREX COLD/COUGH DAY/NITE MS 5-2-10-325 MG ORAL 2 caps deja ry 4 hours [id number] 23899049059 No Longer Active Landon Casper MD Active CHLORASEPTIC MAX SORE THROAT 15-10 MG MOUTH/THROAT LOZENGE 1 every 2 hours prn BENZOCAINE-MENTHOL 61636782330 No Longer Active Arie Casper MD Active PREDNISONE 20 MG ORAL TABLET 2 tabs daily for 3 days, 1 tab daily for 3 days, 1/2 tab daily for 2 days PREDNISONE 41023512620 No Longer Active Jose Zhong MD Active AZITHROMYCIN 250 MG ORAL TABLET 2 po qd x 1 day, then 1 po q d x 4 days AZITHROMYCIN 16768330743 No Longer Active Jose Mcwilliams MD Active ZOFRAN ODT 4 MG ORAL TABLET DISINTEGRATING 1 po q6hr PRN Nausea ONDANSETRON 25418097218 No Longer Active Rich Rosales MD Active ZOFRAN 4 MG ORAL TABLET 1 tablet every 4 hours ONDANSETRON HCL 11695784155 No Longer Active Rich Rosales MD Activ e MUCINEX 600 MG ORAL TABLET EXTENDED RELEASE 12 HOUR Ta ke 1-2 tablets every 12 hours GUAIFENESIN 53901290342 No Longer Active Rich Rosales MD Active BACTRIM 400-80 MG ORAL TABLET take one po BID SULFAMETHOXAZOLE-TRIMETHOPRIM 72713179214 No Longer Active Abelardo HERNANDEZ Active AZITHROMYCIN 500 MG ORAL TABLET 1 PO q day x 6 days 20 03/02/23 AZITHROMYCIN 10611259558 No Longer Active Tin HERNANDEZ Activ e ZITHROMAX 250 MG ORAL TABLET 2 po today, then 1 po q days 2-5 20 10/03/08 AZITHROMYCIN 75979959420 No Longer Active Arie Casper MD Active ZITHROMAX 250 MG ORAL TABLET 2 po today, then 1 po q days 2-5 20 09/23/25 AZITHROMYCIN 70278471075 No Longer Active Arie Casper MD Active AMOXICILLIN 500 MG ORAL CAPSULE 1 tab by mouth 3 times daily 201 11/24/09 AMOXICILLIN 84559804357 No Longer Active Arie Casper MD Active BACTRIM DS 800-160 MG ORAL TABLET 1 tab by mouth twice daily 201 11/03/14 TRIMETHOPRIM-SULFAMETHOXAZOLE 96539629193 No Longer Active Fozia Casper MD Active AMOXICILLIN 500 MG ORAL TABLET take 1 tab po TID 08/05 AMOXICILLIN 11958184250 No Longer Active Arie Casper MD Acti ve BACTRIM DS 800-160 MG ORAL TABLET 1 tab by mouth twice daily 201 11/03/14 BACTRIM DS 800-160 MG ORAL TABLET 532133 TRIMETHOPRIM-SULFAMETHOXAZOLE Inactive MUCINEX 600 MG ORAL TABLET EXTENDED RELEASE 12 HOUR Ta ke 1-2 tablets every 12 hours MUCINEX 600 MG ORAL TABLET EXTENDED RELEA SE 12 HOUR GUAIFENESIN Inactive ZOFRAN 4 MG ORAL TABLET 1 tablet every 4 hours ZOFRAN 4 MG ORAL TABLET 697681 ONDANSETRON HCL Inactive ZOFRAN ODT 4 MG ORAL TABLET DISINTEGRATING 1 po q6hr PRN Nausea ZOFRAN ODT 4 MG ORAL TABLET DISINTEGRATING 391016 ONDAN SETRON Inactive CHLORASEPTIC MAX SORE THROAT 15-10 MG MOUTH/THROAT LOZENGE 1 every 2 hours prn CHLORASEPTIC MAX SORE THROAT 15-10 MG MOUTH/THROAT LOZENGE BENZOCAINE-MENTHOL Inactive COMTREX COLD/COUGH DAY/NITE MS 5-2-10-325 MG ORAL 2 caps deja ry 4 hours COMTREX COLD/COUGH DAY/NITE MS 5-2-10-325 MG ORA L [id number] Inactive [facility] TUSSIN COUGH/COLD CF 5-10-100 MG/5ML ORAL LIQUID 2 teasp oons every 4 hours [facility] TUSSIN COUGH/COLD CF 5-10-100 MG/5ML ORAL LI QUID [id number] Inactive IBUPROFEN 800 MG ORAL TABLET take one po Q 8 hours 201 02/01/16 IBUPROFEN 800 MG ORAL TABLET 948542 IBUPROFEN Inactive VITAMINS 0.8 MG ORAL TABLET take 1 tab po qday VITAMINS 0.8 MG ORAL TABLET [id number] E-FA Inactive TESSALON PERLES 100 MG ORAL CAPSULE 1 tablet by mouth 3 times da cory TESSALON PERLES 100 MG ORAL CAPSULE 831770 BENZONATATE Inactive AMOXICILLIN 500 MG ORAL CAPSULE 1 tab by mouth 3 times daily 201 02/21/05 AMOXICILLIN 500 MG ORAL CAPSULE 455880 AMOXICILLIN Inactive GUAIFENESIN-CODEINE 100-10 MG/5ML ORAL SYRUP 2 tsp every 6 hours prn GUAIFENESIN-CODEINE 100-10 MG/5ML ORAL SYRUP 398642 GUAIFENESIN-CODEINE Inactive VICKS DAYQUIL SEVERE COLD/FLU TABLET 1 tab every 6 hours prn 201 02/22/17 VICKS DAYQUIL SEVERE COLD/FLU TABLET PHENYLEPHRI [id number]-TE-NV-APAP TABS Inactive BACTRIM DS 800-160 MG ORAL TABLET 1 twice a day 05/30 BACTRIM DS 800-160 MG ORAL TABLET 944741 SULFAMETHOXAZOLE-TRIMETHOPRIM Inactiv e PROMETHAZINE HCL 25 MG ORAL TABLET 1 four times a day as nee ded for vomiting PROMETHAZINE HCL 25 MG ORAL TABLET 333290 PROMETHAZINE HCL Inactive ZYRTEC ALLERGY 10 MG ORAL CAPSULE 1 po qd ZYRTEC ALLERGY 10 MG ORAL CAPSULE CETIRIZINE HCL Inactive MACROBID 100 MG ORAL CAPSULE 1 cap by mouth twice daily MACROBID 100 MG ORAL CAPSULE 4587079 NITROFURANTOIN MONOHYD MACRO In active LOMOTIL 2.5-0.025 MG ORAL TABLET 1 to 2 four times a day as needed for diarrhea LOMOTIL 2.5-0.025 MG ORAL TABLET 2134221 DIPHENOXYLATE-ATROPINE Inactive CYCLOBENZAPRINE HCL 10 MG ORAL TABLET 1/2 - 1 tablet b y mouth three times daily as needed for muscle spasm/pain CYCLOBEN ZAPRINE HCL 10 MG ORAL TABLET 462000 CYCLOBENZAPRINE HCL Inactive AMOXICILLIN 500 MG ORAL TABLET 2 tabs twice a day for 10 days 20 07/09/11 AMOXICILLIN 500 MG ORAL TABLET 242499 AMOXICILLIN I nactive LOMOTIL 2.5-0.025 MG ORAL TABLET 1 to 2 four times a day as needed for diarrhea LOMOTIL 2.5-0.025 MG ORAL TABLET 3136847 DIPHENOXYLATE-ATROPINE Inactive ZOFRAN 4 MG ORAL TABLET 1 TAB PO Q 6 HRS PRN NAUSEA 07/10/15 ZOFRAN 4 MG ORAL TABLET 780540 ONDANSETRON HCL Inactive CITRATE OF MAGNESIA ORAL SOLUTION 1 bottle today for constipatio n CITRATE OF MAGNESIA ORAL SOLUTION 9804034 MAGNESIUM CITR ATE Inactive PROMETHAZINE HCL 12.5 MG ORAL TABLET 1 tablet by mouth every 6 hours as needed for nausea/vomiting PROMETHAZINE HCL 12.5 MG ORA L TABLET 065468 PROMETHAZINE HCL Inactive PREDNISONE 20 MG ORAL TABLET 1 tablet twice daily for 2 days, then 1 tablet once daily for 2 days PREDNISONE 20 MG ORAL TABLET 153647 PREDNISONE Inactive ALPRAZOLAM 0.25 MG ORAL TABLET 1 tablet by mouth every 8 hours as needed for stress ALPRAZOLAM 0.25 MG ORAL TABLET 105259 ALPRA ZOLAM Inactive FLONASE 50 MCG/ACT NASAL SUSPENSION 1 spray each nostr il twice daily for allergies and runny nose until gone FLON ASE 50 MCG/ACT NASAL SUSPENSION 5711303 FLUTICASONE PROPIONATE Inactive PREDNISONE 20 MG ORAL TABLET 1 tablet daily for airway inflammat ion PREDNISONE 20 MG ORAL TABLET 984145 PREDNISONE Lyman ctive NAPROXEN 500 MG ORAL TABLET Take 1 tab BID NAPROXEN 500 MG ORAL TABLET 324811 NAPROXEN Inactive ZOLOFT 50 MG ORAL TABLET 1 tablet by mouth daily 12/08 ZOLOFT 50 MG ORAL TABLET 977146 SERTRALINE HCL Inactive LOMOTIL 2.5-0.025 MG ORAL TABLET 1 tab po four times a day as needed for diarrhea LOMOTIL 2.5-0.025 MG ORAL TABLET 1176925 DIPHENOXYLATE-ATROPINE Inactive CETIRIZINE HCL 10 MG ORAL TABLET 1 po qd PRN Allergies CETIRIZINE HCL 10 MG ORAL TABLET 3974422 CETIRIZINE HCL Inactiv e TUSSIONEX PENNKINETIC ER 10-8 MG/5ML ORAL SUSPENSION E XTENDED RELEASE 5ml po q12hr PRN Cough TUSSIONEX PENNKINETI C ER 10-8 MG/5ML ORAL SUSPENSION EXTENDED RELEASE HYDROCOD POLST-CHLORPHEN POLST I nactive NEXPLANON IMPLANT right arm subcutaneously NEXPLANON IMPLANT ETONOGESTREL IMPL Inactive PROTONIX 40 MG ORAL TABLET DELAYED RELEASE 1 po q a.m. PROTONIX 40 MG ORAL TABLET DELAYED RELEASE 643708 PANTOPRAZOLE SODI UM Inactive AMOXICILLIN 500 MG ORAL TABLET take 1 tab po TID 08/05 AMOXICILLIN 500 MG ORAL TABLET 157309 AMOXICILLIN Inactive AMOXICILLIN 500 MG ORAL CAPSULE 1 tab by mouth 3 times daily 201 11/24/09 AMOXICILLIN 500 MG ORAL CAPSULE 978800 AMOXICILLIN Inactive ZITHROMAX 250 MG ORAL TABLET 2 po today, then 1 po q days 2-5 20 09/23/25 ZITHROMAX 250 MG ORAL TABLET 308626 AZITHROMYCIN Lyman ctive ZITHROMAX 250 MG ORAL TABLET 2 po today, then 1 po q days 2-5 20 10/03/08 ZITHROMAX 250 MG ORAL TABLET 707949 AZITHROMYCIN Arlen ctive AZITHROMYCIN 500 MG ORAL TABLET 1 PO q day x 6 days 20 03/02/23 AZITHROMYCIN 500 MG ORAL TABLET 0994445 AZITHROMYCIN Inactive BACTRIM 400-80 MG ORAL TABLET take one po BID BACTRIM 400- 80 MG ORAL TABLET 866245 SULFAMETHOXAZOLE-TRIMETHOPRIM Inactive AZITHROMYCIN 250 MG ORAL TABLET 2 po qd x 1 day, then 1 po q d x 4 days AZITHROMYCIN 250 MG ORAL TABLET 369297 AZITHROMY ALLISON Inactive PREDNISONE 20 MG ORAL TABLET 2 tabs daily for 3 days, 1 tab daily for 3 days, 1/2 tab daily for 2 days PREDNISONE 20 MG ORAL T ABLET 334485 PREDNISONE Inactive ZITHROMAX 250 MG ORAL TABLET 2 po today, then 1 po q days 2-5 20 06/08/16 ZITHROMAX 250 MG ORAL TABLET 880565 AZITHROMYCIN Arlen ctive FLAGYL 500 MG ORAL TABLET 1 tablet by mouth two times daily 2014 FLAGYL 500 MG ORAL TABLET 119357 METRONIDAZOLE Inacti ve AUGMENTIN 875-125 MG ORAL TABLET 1 tab by mouth twice daily with food AUGMENTIN 875-125 MG ORAL TABLET 144941 AMOXICIL ELSA-POT CLAVULANATE Inactive NAPROXEN 500 MG ORAL TABLET one tab PO BID NAPROXEN 500 MG ORAL TABLET 725401 NAPROXEN Inactive PREDNISONE 20 MG ORAL TABLET 2 tabs daily for 3 days, 1 tab daily for 3 days, 1/2 tab daily for 2 days PREDNISONE 20 MG ORAL T ABLET 556192 PREDNISONE Inactive AZITHROMYCIN 250 MG ORAL TABLET 2 po qd x 1 day, then 1 po q d x 4 days AZITHROMYCIN 250 MG ORAL TABLET 900797 AZITHROMY ALLISON Inactive PREDNISONE 20 MG ORAL TABLET 2 tabs daily for 3 days, 1 tab daily for 3 days, 1/2 tab daily for 2 days PREDNISONE 20 MG ORAL T ABLET 408104 PREDNISONE Inactive ZITHROMAX Z-EMIL 250 MG ORAL TABLET 2 today, then 1 daily for 4 d ays ZITHROMAX Z-EMIL 250 MG ORAL TABLET 398125 AZITHROMYCIN Inactive CEFDINIR 300 MG ORAL CAPSULE 1 po BID x 10 days 12/18 CEFDINIR 300 MG ORAL CAPSULE 922493 CEFDINIR Inactive CEFDINIR 300 MG ORAL CAPSULE 1 po BID x 10 days CEFDINIR 300 MG ORAL CAPSULE 20030127 CEFDINIR Inactive PREDNISONE 20 MG ORAL TABLET 2 tabs daily for 3 days, 1 tab daily for 3 days, 1/2 tab daily for 2 days PREDNISONE 20 MG ORAL T ABLET 673947 PREDNISONE Inactive BACTRIM DS 800-160 MG ORAL TABLET 1 tab by mouth twice daily 201 05/02/30 BACTRIM DS 800-160 MG ORAL TABLET 227907 TRIMETHOPRIM-SULFAMETHOXAZOLE Inactive ZITHROMAX Z-EMIL 250 MG ORAL TABLET 2 today, then 1 daily for 4 d ays ZITHROMAX Z-EMIL 250 MG ORAL TABLET 510759 AZITHROMYCIN Inactive Advance Directives Directive Description Start [...] Unit Range Description Lab Report: CBC, Quant [facility] [place] Hematology leukocyte count, blood 7.8 10^3/MM^3 [...] 263 10^3/MM^3 10*3/mm3 142-424 Lab Report: Chlamydia/GC APTIMA/91510 - Lab chlamydia DNA probe NOT DETECTED NOT DETECTED Lab Report: Chlamydia/GC APTIMA/80267 - Microbiology Neisseria gonorrhoeae DNA probe NOT [...] 5.0-8.5 Encounters Code Encounter Date Provider Facility CPT-97019 Level 3 Est. Patient 10:21:41 RAIL LAYER Arie mcqueen MD [facility] CPT-45363 Level 3 Est. Patient 11:35:15 RAIL LAYER Arie mcqueen MD [facility] CPT-29030 Level 3 Est. Patient 15:40:28 CDT Steve HOG FEEDER [facility] CPT-31342 Level 3 Est. Patient 16:40:36 CDT Arie mcqueen MD [facility] CPT-75838 Level 4 Est. Patient 15:29:22 RAIL LAYER Arie mcqueen MD [facility] CPT-80026 Level 3 Est. Patient 15:18:16 RAIL LAYER Jono black [facility] CPT-04656 Level 4 Est. Patient 12:08:40 RAIL LAYER Steve H[employer] FEEDER [facility] CPT-41317 Level 3 Est. Patient 09:24:42 CDT Steve [facility] CPT-76580 Level 3 Est. Patient 09:12:56 CDT Arie mcqueen MD [facility] CPT-07118 Level 3 Est. Patient 16:40:54 CDT Jose Zhong MD [facility] CPT-82560 Level 2 Est. Patient 13:01:13 CDT Steve [facility] CPT-71843 Level 3 Est. Patient 11:55:30 RAIL LAYER Jono black [facility] CPT-84311 Level 3 Est. Patient 09:52:36 RAIL LAYER Steve HOG FEEDER [facility] CPT-84848 Level 3 Est. Patient 16:25:33 RAIL LAYER Rich Rosales MD [facility] CPT-40434 Level 3 Est. Patient 20:33:55 CDT Arie mcqueen MD [facility] CPT-98819 Level 3 Est. Patient 14:18:20 CDT Rich Rosales MD [facility] CPT-21068 Level 4 Est. Patient 09:34:31 CDT Arie mcqueen MD [facility] CPT-31569 Level 3 Est. Patient 09:08:55 RAIL LAYER Liliana vincent MD [facility] CPT-50665 Level 3 Est. Patient 16:44:07 RAIL LAYER Arie mcqueen MD [facility] CPT-50083 Level 3 Est. Patient 10:44:27 CDT Arie mcqueen MD [facility] CPT-82685 Level 3 Est. Patient 08:55:41 CDT Jose Zhogn MD [facility] CPT-94289 Level 3 Est. Patient 18:37:31 CDT Liliana vincent MD PhD [facility] CPT-59907 Level 3 Est. Patient 14:28:23 CDT Abelardo HERNANDEZ [facility] CPT-75746 Level 3 Est. Patient 15:18:13 RAIL LAYER Arie mcqueen MD [facility] CPT-74947 Level 3 Est. Patient 10:11:29 RAIL LAYER Arie mcqueen MD [facility] CPT-19586 Level 3 Est. Patient 10:55:57 RAIL LAYER Jono black DO [facility] CPT-92686 Level 3 Est. Patient 17:29:05 CDT Arie mcqueen MD [facility] Procedures Code Procedure Name Date Entry Date Standard Desc ription CPT-16801 Nexplanon Removal 15:40:28 CDT CPT-34285 Sono transvag pelvis non OB uterus ovari es cervix - XRAY USE ONLY 08:58:14 RAIL LAYER CPT-00763 UA w micro - LAB USE ONLY 16:04:56 RAIL LAYER 2015 CPT-30443 Wet Prep/GEN - LAB USE ONLY 16:04:56 RAIL LAYER 20 08/10/29 CPT-94629 First Vx - Ix admin via ID I M or jet injects without counseling by physician 16:57:10 CDT CPT-54241 Fluzone Preservative Free Intramuscular Suspension 16:57:10 CDT CPT-J0696 Rocephin 1000 mg (Ceftriaxone) 11:49:23 CDT CPT-J1040 Depo Medrol 80 mg (Methyl Prednisolone A cetate) 11:49:23 CDT CPT-J1100 Decadron 8mg (Dexamethasone) 11:49:23 CDT 2 CPT-30804 Abx/Therapy Injection 11:49:23 CDT CPT-86865 Abx/Therapy Injection 11:49:23 CDT CPT-78966 Abd compl w upright 09:07:26 RAIL LAYER CPT-70791 Ear Wash 16:12:47 RAIL LAYER CPT-OV Office Visit 11:12:01 CDT CPT-OV Office Visit 15:30:23 CDT CPT-59503 Sono pelvis non OB uterus ovaries cervix 15:50:44 CDT CPT-94991 Hand comp min 3V 16:42:32 CDT CPT-43755 Abd compl w upright 12:17:01 CDT CPT-11457 Nexplanon Placement 15:07:39 RAIL LAYER CPT-25997 Removal of IUD 15:07:39 RAIL LAYER CPT-18178 TB Tubersol 12:09:32 CDT CPT-12906 TB Tubersol 13:55:43 CDT
--- OUTSIDE RECORDS SUMMARY | 2020-03-03 07:31 | XMS REPORT | Clinical Summary ---
Author Author Admin, Diamante Marcelo Organization [facility] Address Unknown Phone Unavailable [...] Zhong M D COLON CANCER ICD-V16.0 Inactive Jsoe Zhong MD DIABETES ICD-V18.0 Inactive Jose Zhong [...] Generic Name ND Status Provider Patient Instruction LOMOTIL 2.5-0.025 MG TABS 1 to 2 four times a day as needed for diarrhea DIPHENOXYLATE-ATROPINE 05616002659 Active Rich mcintosh MD Active PROMETHAZINE HCL 25 MG TABS 1 four times a day as needed for vomiting PROMETHAZINE HCL 79590329942 Active Rich Rosales MD Active BACTRIM DS 800-160 MG TABS 1 twice a day SULFAMETHOXAZOLE-TRIMETHOPRIM 06648477306 Active Rich Rosales MD Active AUGMENTIN 875-125 MG TAB 1 tab by mouth twice daily with food 08/12/16 AMOXICILLIN-POT CLAVULANATE 46124679810 No Longer Active Liliana Estrada MD PhD Active CYCLOBENZAPRINE HCL 10 MG TABS 1/2 - 1 tablet by mouth three times daily as needed for muscle spasm/pain CYCLOBENZAPRINE HCL 53908 434620 Active Liliana Estrada MD PhD Active GUAIFENESIN-CODEINE 100-10 MG/5ML ORAL SYRP 2 tsp every 6 hours prn GUAIFENESIN-CODEINE 96945022433 Active Liliana Estrada MD PhD Active VICKS DAYQUIL SEVERE COLD/FLU TABS 1 tab every 6 hours prn SIDWIELTSWEIW-EJ-XC-APAP TABS 31984057682 Active Liliana Estrada MD PhD Active AMOXICILLIN 500 MG CAP 1 tab by mouth 3 times daily 08/12/16 AMOXICILLIN 47659296170 No Longer Active Liliana Estrada MD PhD Acti ve TESSALON PERLES 100 MG CAP 1 tablet by mouth 3 times daily 11/01 BENZONATATE 23047991169 No Longer Active Liliana Estrada MD PhD Active FLAGYL 500 MG TAB 1 tablet by mouth two times daily 07/11/29 METRONIDAZOLE 88933510015 No Longer Active Nilam Weber Active ZITHROMAX 250 MG TAB 2 po today, then 1 po q days 2-5 AZITHROMYCIN 64570906075 No Longer Active Arie Casper MD Acti ve VITAMINS 0.8 MG TABS take 1 tab po qday 08/08 [id number]-[id number]-FA 83643025461 No Longer Active Arie Casper MD Active IBUPROFEN 800 MG TABS take one po Q 8 hours IBU PROFEN 16489129000 No Longer Active Arie Casper MD Active [facility] TUSSIN COUGH/COLD CF 5-10-100 MG/5ML LIQD 2 teaspoons ev eliud 4 hours [id number]-RN 46955717490 No Longer Active Blaine Casper MD Active COMTREX COLD/COUGH DAY/NITE MS 5-2-10-325 MG MISC 2 caps deja ry 4 hours [id number]-RA-APAP 27077433629 No Longer Active Landon Casper MD Active CHLORASEPTIC MAX SORE THROAT 15-10 MG LOZG 1 every 2 hours prn 2 BENZOCAINE-MENTHOL 77644654289 No Longer Active Arie Marcelo Active PREDNISONE 20 MG TAB 2 tabs daily for 3 days, 1 t ab daily for 3 days, 1/2 tab daily for 2 days PREDNISONE 23545334332 No Longer Active Jose Zhong MD Active AZITHROMYCIN 250 MG TABS 2 po qd x 1 day, then 1 po qd x 4 days AZITHROMYCIN 24590388104 No Longer Active Jose Zhong MD Active ZOFRAN ODT 4 MG TBDP 1 po q6hr PRN Nausea ONDAN SETRON 25029823882 No Longer Active Rich Rosales MD Active ZOFRAN 4 MG TABS 1 tablet every 4 hours ONDANSE JERRELL HCL 98663220001 No Longer Active Rich Rosales MD Active MUCINEX 600 MG XF36Y-IUI Take 1-2 tablets every 12 hours GUAIFENESIN 99987318985 No Longer Active Rich Rosales MD Activ e BACTRIM 400-80 MG TABS take one po BID SULFAMETHOXAZOLE-TRIMETHOPRIM 73527876003 No Longer Active Abelardo HERNANDEZ Active AZITHROMYCIN 500 MG TABS 1 PO q day x 6 days AZ ITHROMYCIN 73781503718 No Longer Active Tin HERNANDEZ Active ZITHROMAX 250 MG TAB 2 po today, then 1 po q days 2-5 AZITHROMYCIN 05232440564 No Longer Active Arie Casper MD Acti ve ZITHROMAX 250 MG TAB 2 po today, then 1 po q days 2-5 AZITHROMYCIN 33369606164 No Longer Active Arie Casper MD Acti ve AMOXICILLIN 500 MG CAP 1 tab by mouth 3 times daily 09/23/20 AMOXICILLIN 72217422042 No Longer Active Arie Casper MD Acti ve BACTRIM DS 800-160 MG TAB 1 tab by mouth twice daily 2 TRIMETHOPRIM-SULFAMETHOXAZOLE 34386875461 No Longer Active Arie Casper MD Active AMOXICILLIN 500 MG TABS take 1 tab po TID AMOXI CILLIN 63967282133 No Longer Active Arie Casper MD Active BACTRIM DS 800-160 MG TAB 1 tab by mouth twice daily 2 BACTRIM DS 800-160 MG TAB TRIMETHOPRIM-SULFAMETHOXAZOLE Inac tive MUCINEX 600 MG [id number] Take 1-2 tablets every 12 hours MUCINEX 600 MG [id number]-LBF GUAIFENESIN Inactive ZOFRAN 4 MG TABS 1 tablet every 4 hours ZOFRAN 4 MG TABS 006258 ONDANSETRON HCL Inactive ZOFRAN ODT 4 MG TBDP 1 po q6hr PRN Nausea ZOFRAN ODT 4 MG TBDP 243450 ONDANSETRON Inactive CHLORASEPTIC MAX SORE THROAT 15-10 MG LOZG 1 every 2 hours prn 2 014/04/30 CHLORASEPTIC MAX SORE THROAT 15-10 MG LOZG BENZO ARINA-MENTHOL Inactive COMTREX COLD/COUGH DAY/NITE MS 5-2-10-325 MG MISC 2 caps deja ry 4 hours COMTREX COLD/COUGH DAY/NITE MS 5-2-10-325 MG MIS C [id number]-ZDY-NP-APAP Inactive [facility] TUSSIN COUGH/COLD CF 5-10-100 MG/5ML LIQD 2 teaspoons ev eliud 4 hours [facility] TUSSIN COUGH/COLD CF 5-10-100 MG/5ML LIQD BGULOBOJFQMES-IJ-CM Inactive IBUPROFEN 800 MG TABS take one po Q 8 hours IBUPROFEN 800 MG TABS IBUPROFEN Inactive VITAMINS 0.8 MG TABS take 1 tab po qday 08/08 VITAMINS 0.8 MG TABS ACHOPABL-DRV-KE-FA Inactive TESSALON PERLES 100 MG CAP 1 tablet by mouth 3 times daily 11/01 TESSALON PERLES 100 MG CAP 209901 BENZONATATE Inact zaid AMOXICILLIN 500 MG CAP 1 tab by mouth 3 times daily 08/12/16 AMOXICILLIN 500 MG CAP 196675 AMOXICILLIN Inactive AMOXICILLIN 500 MG TABS take 1 tab po TID AMOXICILLIN 500 MG TABS 710360 AMOXICILLIN Inactive AMOXICILLIN 500 MG CAP 1 tab by mouth 3 times daily 09/23/20 AMOXICILLIN 500 MG CAP 589438 AMOXICILLIN Inactive ZITHROMAX 250 MG TAB 2 po today, then 1 po q days 2-5 ZITHROMAX 250 MG TAB 0390900 AZITHROMYCIN Inactive ZITHROMAX 250 MG TAB 2 po today, then 1 po q days 2-5 ZITHROMAX 250 MG TAB 2574046 AZITHROMYCIN Inactive AZITHROMYCIN 500 MG TABS 1 PO q day x 6 days 3 AZITHROMYCIN 500 MG TABS 5170216 AZITHROMYCIN Inactive BACTRIM 400-80 MG TABS take one po BID BA CTRIM 400-80 MG TABS 843755 SULFAMETHOXAZOLE-TRIMETHOPRIM Inactive AZITHROMYCIN 250 MG TABS 2 po qd x 1 day, then 1 po qd x 4 days AZITHROMYCIN 250 MG TABS 7351901 AZITHROMYCIN Inactiv e PREDNISONE 20 MG TAB 2 tabs daily for 3 days, 1 t ab daily for 3 days, 1/2 tab daily for 2 days PREDNISONE 20 MG TAB 929993 PREDNISON E Inactive ZITHROMAX 250 MG TAB 2 po today, then 1 po q days 2-5 ZITHROMAX 250 MG TAB 2278145 AZITHROMYCIN Inactive FLAGYL 500 MG TAB 1 tablet by mouth two times daily 07/11/29 FLAGYL 500 MG TAB 394626 METRONIDAZOLE Inactive AUGMENTIN 875-125 MG TAB 1 tab by mouth twice daily with food 08/12/16 AUGMENTIN 875-125 MG TAB 287545 AMOXICILLIN-POT CLAVULA ANGELO Inactive Advance Directives Directive [...] Negative;Positive Encounters Code Encounter Date Provider Facility CPT-10021 Level 3 Est. Patient 14:18:20 CDT Rich Rosales MD [facility] CPT-52757 Level 4 Est. Patient 09:34:31 CDT Arie mcqueen MD [facility] CPT-30638 Level 3 Est. Patient 09:08:55 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EXHIBITS Liliana vincent MD PhD [facility] CPT-34304 Level 3 Est. Patient 16:44:07 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EXHIBITS Arie mcqueen MD [facility] CPT-00699 Level 3 Est. Patient 10:44:27 CDT Arie mcqueen MD [facility] CPT-57759 Level 3 Est. Patient 08:55:41 CDT Jose Zhong MD [facility] CPT-43247 Level 3 Est. Patient 18:37:31 CDT Liliana vincent MD PhD [facility] CPT-51919 Level 3 Est. Patient 14:28:23 CDT Abelardo HERNANDEZ [facility] CPT-11774 Level 3 Est. Patient 15:18:13 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EXHIBITS Arie mcqueen MD [facility] CPT-74572 Level 3 Est. Patient 10:11:29 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EXHIBITS Arie mcqueen MD [facility] CPT-22682 Level 3 Est. Patient 10:55:57 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EXHIBITS Jono black DO [facility] CPT-90931 Level 3 Est. Patient 17:29:05 CDT Arie mcqueen MD [facility] Procedures Code Procedure Name Date Entry Date Standard Desc ription CPT-55867 Sono pelvis non OB uterus ovaries cervix 15:50:44 CDT CPT-77716 Hand comp min 3V 16:42:32 CDT CPT-18708 Abd compl w upright 12:17:01 CDT CPT-21717 Nexplanon Placement 15:07:39 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EXHIBITS CPT-93660 Removal of IUD 15:07:39 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EXHIBITS CPT-77195 TB Tubersol 12:09:32 CDT CPT-15409 TB Tubersol 13:55:43 CDT
--- OUTSIDE RECORDS SUMMARY | 2020-03-03 07:31 | XMS REPORT | Clinical Summary ---
Author Author Admin, Diamante Marcelo Organization [employer] Address Unknown Phone Unavailable Allergies, Adverse Reactions, [...] site Abdominal pain 789.00 Active Brii Larson DOG GROOMER Abdominal pain, unspecified site Diarrhea 787.91 Resolved [...] cute pharyngitis Nausea 787.02 Active Brii Larson DOG GROOMER Nausea alone URI 465.9 Active Jono Gagnon [...] 1 po q a.m. PANTOPRAZO LE SODIUM 44226472570 Active Brii Larson APRN Active PREDNISONE 20 MG TAB 2 tabs daily for 3 days, 1 t ab daily for 3 days, 1/2 tab daily for 2 days PREDNISONE 39045753336 No Longer Active Brii Larson APRN Active PREDNISONE 20 MG TAB 1 tablet twice daily for 2 d ays, then 1 tablet once daily for 2 days PREDNISONE 62459394272 No Longer Active Brii Larson APRN Active FLONASE 50 MCG/ACT SUSP 1 spray each nostril twice d aily for allergies and runny nose until gone FLUTICASONE PROPIONATE Active Jono Gagnon DO Active PROMETHAZINE HCL 12.5 MG TABS 1 tablet by mouth every 6 hours as needed for nausea/vomiting PROMETHAZINE HCL 03732883851 No Longe r Active Jono Gagnon DO Active CITRATE OF MAGNESIA ORAL SOLN 1 bottle today for constipation 20 07/10/15 MAGNESIUM CITRATE 84021643562 No Longer Active Jono Gagnon DO Active ZOFRAN 4 MG ORAL TABS 1 TAB PO Q 6 HRS PRN NAUSEA 2014 ONDANSETRON HCL 71393765875 No Longer Active Brii Larson APRN A ctive LOMOTIL 2.5-0.025 MG TAB 1 to 2 four times a day as needed f or diarrhea DIPHENOXYLATE-ATROPINE 26408570346 No Longer Active January Larson APRN Active AMOXICILLIN 500 MG TABS 2 tabs twice a day for 10 days AMOXICILLIN 25950896283 No Longer Active Brii Larson APRN Acti ve NEXPLANON IMPL ETONOGESTREL IMPL 10465820234 Active Rich Rosales MD Active CYCLOBENZAPRINE HCL 10 MG TABS 1/2 - 1 tablet by mouth three times daily as needed for muscle spasm/pain CYCLOBENZAPRINE HCL 18054256942 No Longer Active Arie Casper MD Active LOMOTIL 2.5-0.025 MG TABS 1 to 2 four times a day as needed for diarrhea DIPHENOXYLATE-ATROPINE 98201006237 No Longer Active Fozia Casper MD Active MACROBID 100 MG CAP 1 cap by mouth twice daily NITROFURANTOIN MONOHYD MACRO 26972233915 No Longer Active Arie Casper MD Active ZYRTEC ALLERGY 10 MG CAPS 1 po qd CETIRIZINE HCL 89550111457 No Longer Active Arie Casper MD Active AZITHROMYCIN 250 MG TABS 2 po qd x 1 day, then 1 po qd x 4 days AZITHROMYCIN 71880074337 No Longer Active Jillina Franaomi CABRERA Active PREDNISONE 20 MG TAB 2 tabs daily for 3 days, 1 t ab daily for 3 days, 1/2 tab daily for 2 days PREDNISONE 95944616273 No Longer Active Jillina Frazell RICK Active PROMETHAZINE HCL 25 MG TABS 1 four times a day as needed for vomiting PROMETHAZINE HCL 39760484381 No Longer Active Myrna Roberto MD Active BACTRIM DS 800-160 MG TABS 1 twice a day SULFAMETHOXAZOLE-TRIMETHOPRIM 78850732320 No Longer Active Myrna Roberto MD Active VICKS DAYQUIL SEVERE COLD/FLU TABS 1 tab every 6 hours prn 12/10 DHVEWJABRMNDZ-BO-VY-APAP TABS 78868613650 No Longer Active Myrna leigh MD Active GUAIFENESIN-CODEINE 100-10 MG/5ML ORAL SYRP 2 tsp every 6 hours prn GUAIFENESIN-CODEINE 53347593120 No Longer Active Myrna Roberto MD Active NAPROXEN 500 MG TAB one tab PO BID NAPROXEN 332 99741963 No Longer Active Myrna Roberto MD Active AUGMENTIN 875-125 MG TAB 1 tab by mouth twice daily with food 20 08/12/16 AMOXICILLIN-POT CLAVULANATE 96889716112 No Longer Active Liliana Estrada MD PhD Active AMOXICILLIN 500 MG CAP 1 tab by mouth 3 times daily 08/12/16 AMOXICILLIN 82630676915 No Longer Active Liliana Estrada MD PhD Acti ve TESSALON PERLES 100 MG CAP 1 tablet by mouth 3 times daily 11/01 BENZONATATE 17949941592 No Longer Active Liliana Estrada MD PhD Active FLAGYL 500 MG TAB 1 tablet by mouth two times daily 07/11/29 METRONIDAZOLE 67581530859 No Longer Active Nilam Weber Active ZITHROMAX 250 MG TAB 2 po today, then 1 po q days 2-5 AZITHROMYCIN 94142865967 No Longer Active Arie Casper MD Acti ve VITAMINS 0.8 MG TABS take 1 tab po qday 08/08 EJLMLVFS-ZWT-MM-FA 69023978433 No Longer Active Arie Casper MD Active IBUPROFEN 800 MG TABS take one po Q 8 hours IBU PROFEN 15939735236 No Longer Active Arie Casper MD Active [facility] TUSSIN COUGH/COLD CF 5-10-100 MG/5ML LIQD 2 teaspoons ev eliud 4 hours GKICVVXEWMBUI-CM-[id number] 84688874827 No Longer Active Blaine Casper MD Active COMTREX COLD/COUGH DAY/NITE MS 5-2-10-325 MG MISC 2 caps deja ry 4 hours DNYPJOHWZ-RIY-DU-APAP 61637873905 No Longer Active Da aleksandra Casper MD Active CHLORASEPTIC MAX SORE THROAT 15-10 MG LOZG 1 every 2 hours prn 2 014/04/30 BENZOCAINE-MENTHOL 59712815812 No Longer Active Arie Marcelo Active PREDNISONE 20 MG TAB 2 tabs daily for 3 days, 1 t ab daily for 3 days, 1/2 tab daily for 2 days PREDNISONE 71961824216 No Longer Active Jose Zhong MD Active AZITHROMYCIN 250 MG TABS 2 po qd x 1 day, then 1 po qd x 4 days AZITHROMYCIN 88549412789 No Longer Active Jose Zhong MD Active ZOFRAN ODT 4 MG TBDP 1 po q6hr PRN Nausea ONDAN SETRON 99636782923 No Longer Active Rich Rosales MD Active ZOFRAN 4 MG TABS 1 tablet every 4 hours ONDANSE JERRELL HCL 07698960134 No Longer Active Rich Rosales MD Active MUCINEX 600 MG [id number]-VWI Take 1-2 tablets every 12 hours GUAIFENESIN 81573534504 No Longer Active Rich Rosales MD Activ e BACTRIM 400-80 MG TABS take one po BID SULFAMETHOXAZOLE-TRIMETHOPRIM 45962423291 No Longer Active Abelardo HERNANDEZ Active AZITHROMYCIN 500 MG TABS 1 PO q day x 6 days AZ ITHROMYCIN 78761189656 No Longer Active Tin HERNANDEZ Active ZITHROMAX 250 MG TAB 2 po today, then 1 po q days 2-5 AZITHROMYCIN 14782063234 No Longer Active Arie Casper MD Acti ve ZITHROMAX 250 MG TAB 2 po today, then 1 po q days 2-5 AZITHROMYCIN 52822489691 No Longer Active Arie Casper MD Acti ve AMOXICILLIN 500 MG CAP 1 tab by mouth 3 times daily 20 09/23/20 AMOXICILLIN 82629517596 No Longer Active Arie Casper MD Acti ve BACTRIM DS 800-160 MG TAB 1 tab by mouth twice daily 2 TRIMETHOPRIM-SULFAMETHOXAZOLE 11328896656 No Longer Active Arie Casper MD Active AMOXICILLIN 500 MG TABS take 1 tab po TID AMOXI CILLIN 96788480876 No Longer Active Arie Casper MD Active BACTRIM DS 800-160 MG TAB 1 tab by mouth twice daily 2 BACTRIM DS 800-160 MG TAB 511979 TRIMETHOPRIM-SULFAMETHOXAZOLE Inac tive MUCINEX 600 MG [id number]-WSS Take 1-2 tablets every 12 hours MUCINEX 600 MG LF64F-UES GUAIFENESIN Inactive ZOFRAN 4 MG TABS 1 tablet every 4 hours ZOFRAN 4 MG TABS 395236 ONDANSETRON HCL Inactive ZOFRAN ODT 4 MG TBDP 1 po q6hr PRN Nausea ZOFRAN ODT 4 MG TBDP 136293 ONDANSETRON Inactive CHLORASEPTIC MAX SORE THROAT 15-10 MG LOZG 1 every 2 hours prn 2 CHLORASEPTIC MAX SORE THROAT 15-10 MG LOZG BENZO ARINA-MENTHOL Inactive COMTREX COLD/COUGH DAY/NITE MS 5-2-10-325 MG MISC 2 caps deja ry 4 hours COMTREX COLD/COUGH DAY/NITE MS 5-2-10-325 MG MIS C [id number]-APAP Inactive [facility] TUSSIN COUGH/COLD CF 5-10-100 MG/5ML LIQD 2 teaspoons ev eliud 4 hours [facility] TUSSIN COUGH/COLD CF 5-10-100 MG/5ML LIQD [id number]-DZ-PD Inactive IBUPROFEN 800 MG TABS take one po Q 8 hours IBUPROFEN 800 MG TABS IBUPROFEN Inactive VITAMINS 0.8 MG TABS take 1 tab po qday 08/08 VITAMINS 0.8 MG TABS MGMLRSVS-VWJ-VW-FA Inactive TESSALON PERLES 100 MG CAP 1 tablet by mouth 3 times daily 11/01 TESSALON PERLES 100 MG CAP 411096 BENZONATATE Inact zaid AMOXICILLIN 500 MG CAP 1 tab by mouth 3 times daily 08/12/16 AMOXICILLIN 500 MG CAP 213124 AMOXICILLIN Inactive GUAIFENESIN-CODEINE 100-10 MG/5ML ORAL SYRP 2 tsp every 6 hours prn GUAIFENESIN-CODEINE 100-10 MG/5ML ORAL SYRP 421763 GUAIFENESIN-CODEINE Inactive VICKS DAYQUIL SEVERE COLD/FLU TABS 1 tab every 6 hours prn 12/10 VICKS DAYQUIL SEVERE COLD/FLU TABS PHENYLEPHRINE -DM-GG-APAP TABS Inactive BACTRIM DS 800-160 MG TABS 1 twice a day BACTRIM DS 800- 160 MG TABS 917050 SULFAMETHOXAZOLE-TRIMETHOPRIM Inactive PROMETHAZINE HCL 25 MG TABS 1 four times a day as needed for vomiting PROMETHAZINE HCL 25 MG TABS 409902 PROMETHAZINE HCL Inactive ZYRTEC ALLERGY 10 MG CAPS 1 po qd ZY RTEC ALLERGY 10 MG CAPS CETIRIZINE HCL Inactive MACROBID 100 MG CAP 1 cap by mouth twice daily MACROBID 100 MG CAP 5993944 NITROFURANTOIN MONOHYD MACRO Inactive LOMOTIL 2.5-0.025 MG TABS 1 to 2 four times a day as needed for diarrhea LOMOTIL 2.5-0.025 MG TABS 0561401 DIPHENOXYLATE-A TROPINE Inactive CYCLOBENZAPRINE HCL 10 MG TABS 1/2 - 1 tablet by mouth three times daily as needed for muscle spasm/pain CYCLOBENZAP RINE HCL 10 MG TABS 080462 CYCLOBENZAPRINE HCL Inactive AMOXICILLIN 500 MG TABS 2 tabs twice a day for 10 days AMOXICILLIN 500 MG TABS 413240 AMOXICILLIN Inactive LOMOTIL 2.5-0.025 MG TAB 1 to 2 four times a day as needed f or diarrhea LOMOTIL 2.5-0.025 MG TAB 5106292 DIPHENOXYLATE-AT ROPINE Inactive ZOFRAN 4 MG ORAL TABS 1 TAB PO Q 6 HRS PRN NAUSEA 2014 ZOFRAN 4 MG ORAL TABS 792325 ONDANSETRON HCL Inactive CITRATE OF MAGNESIA ORAL SOLN 1 bottle today for constipation 20 07/10/15 CITRATE OF MAGNESIA ORAL SOLN 0139240 MAGNESIUM CITRATE Inactive PROMETHAZINE HCL 12.5 MG TABS 1 tablet by mouth every 6 hours as needed for nausea/vomiting PROMETHAZINE HCL 12.5 MG TABS 940014 PROMETHAZINE HCL Inactive PREDNISONE 20 MG TAB 1 tablet twice daily for 2 d ays, then 1 tablet once daily for 2 days PREDNISONE 20 MG TAB 839653 PREDNISONE Inac tive AMOXICILLIN 500 MG TABS take 1 tab po TID AMOXICILLIN 500 MG TABS 627027 AMOXICILLIN Inactive AMOXICILLIN 500 MG CAP 1 tab by mouth 3 times daily 09/23/20 AMOXICILLIN 500 MG CAP 942212 AMOXICILLIN Inactive ZITHROMAX 250 MG TAB 2 po today, then 1 po q days 2-5 ZITHROMAX 250 MG TAB 0681258 AZITHROMYCIN Inactive ZITHROMAX 250 MG TAB 2 po today, then 1 po q days 2-5 ZITHROMAX 250 MG TAB 8360831 AZITHROMYCIN Inactive AZITHROMYCIN 500 MG TABS 1 PO q day x 6 days 3 AZITHROMYCIN 500 MG TABS 2764049 AZITHROMYCIN Inactive BACTRIM 400-80 MG TABS take one po BID BA CTRIM 400-80 MG TABS 426620 SULFAMETHOXAZOLE-TRIMETHOPRIM Inactive AZITHROMYCIN 250 MG TABS 2 po qd x 1 day, then 1 po qd x 4 days AZITHROMYCIN 250 MG TABS 8342093 AZITHROMYCIN Inactiv e PREDNISONE 20 MG TAB 2 tabs daily for 3 days, 1 t ab daily for 3 days, 1/2 tab daily for 2 days PREDNISONE 20 MG TAB 601298 PREDNISON E Inactive ZITHROMAX 250 MG TAB 2 po today, then 1 po q days 2-5 ZITHROMAX 250 MG TAB 7623288 AZITHROMYCIN Inactive FLAGYL 500 MG TAB 1 tablet by mouth two times daily 07/11/29 FLAGYL 500 MG TAB 513172 METRONIDAZOLE Inactive AUGMENTIN 875-125 MG TAB 1 tab by mouth twice daily with food 20 08/12/16 AUGMENTIN 875-125 MG TAB 911635 AMOXICILLIN-POT CLAVULA ANGELO Inactive NAPROXEN 500 MG TAB one tab PO BID NAPROXEN 500 MG TAB 514314 NAPROXEN Inactive PREDNISONE 20 MG TAB 2 tabs daily for 3 days, 1 t ab daily for 3 days, 1/2 tab daily for 2 days PREDNISONE 20 MG TAB 534078 PREDNISON E Inactive AZITHROMYCIN 250 MG TABS 2 po qd x 1 day, then 1 po qd x 4 days AZITHROMYCIN 250 MG TABS 3006817 AZITHROMYCIN Inactiv e PREDNISONE 20 MG TAB 2 tabs daily for 3 days, 1 t ab daily for 3 days, 1/2 tab daily for 2 days PREDNISONE 20 MG TAB 963493 PREDNISON E Inactive Advance Directives Directive Description [...] Panel - Chemistry sodium, serum 136 mmol/L 348-583 0824/04/26 carbon dioxide, venous blood 29.9 mmol/L 21.0-32 [...] 284 10^3/MM^3 10*3/mm3 142-424 Lab Report: Chlamydia/GC APTIMA/[id number] - Lab chlamydia DNA probe NOT DETECTED NOT DETECTED Lab Report: Chlamydia/GC APTIMA/16228 - Microbiology Neisseria gonorrhoeae DNA probe NOT DETECTED NO T DETECTED Lab Report: Comp. Metabolic Panel - Chem istry sodium, serum 139 mmol/L 833-147 7557/12/15 carbon dioxide, venous blood 30.2 mmol/L 21.0-32 .0 potassium, serum 3.4 mmol/L 3.5-5.2 chloride, serum 101 mmol/L 98-107 blood glucose 92 mg/dL 65-110 urea nitrogen, blood 5 mg/dL 7-18 creatinine, serum 0.81 mg/dL 0.55-1.30 alanine aminotransferase (SGPT), serum 20 U/L 12-78 aspartate aminotransferase (SGOT), serum 10 U/L 15-37 calcium, serum 8.4 mg/dL 8.5-10.1 bilirubin, serum, total 0.60 mg/dL 0.00-1.00 Lab Report: HIV-1/2 Agn/Darcy/19465, HEPAT ITIS PANEL, ACUTE W/REFLE - Chemistry [...] pH, urine, semiquantitative 5.5 5.0-8.5 Lab Report: UHCG, UADIP W/MICRO, AUTO [...] Negative Encounters Code Encounter Date Provider Facility CPT-46570 Level 3 Est. Patient 16:40:54 CDT Jose Zhong MD [facility] CPT-69432 Level 2 Est. Patient 13:01:13 CDT Steve DOG GROOMER [facility] CPT-56516 Level 3 Est. Patient 11:55:30 FAILURE ANALYSIS TECHNICIAN Jono black DO [facility] CPT-16848 Level 3 Est. Patient 09:52:36 FAILURE ANALYSIS TECHNICIAN Steve DOG GROOMER [facility] CPT-45047 Level 3 Est. Patient 16:25:33 FAILURE ANALYSIS TECHNICIAN Rich Rosales MD [facility] CPT-98765 Level 3 Est. Patient 20:33:55 CDT Arie mcqueen MD [facility] CPT-73274 Level 3 Est. Patient 14:18:20 CDT Rich Rosales MD [facility] CPT-88536 Level 4 Est. Patient 09:34:31 CDT Arie mcqueen MD [facility] CPT-34493 Level 3 Est. Patient 09:08:55 FAILURE ANALYSIS TECHNICIAN Liliana vincent MD PhD [facility] CPT-77095 Level 3 Est. Patient 16:44:07 FAILURE ANALYSIS TECHNICIAN Arie mcqueen MD [facility] CPT-63728 Level 3 Est. Patient 10:44:27 CDT Arie mcqueen MD [facility] CPT-11034 Level 3 Est. Patient 08:55:41 CDT Jose Zhong MD [facility] CPT-10025 Level 3 Est. Patient 18:37:31 CDT Liliana vincent MD PhD [facility] CPT-91572 Level 3 Est. Patient 14:28:23 CDT Abelardo HERNANDEZ [facility] CPT-91144 Level 3 Est. Patient 15:18:13 FAILURE ANALYSIS TECHNICIAN Arie mcqueen MD [facility] CPT-89152 Level 3 Est. Patient 10:11:29 FAILURE ANALYSIS TECHNICIAN Arie mcqueen MD [facility] CPT-52838 Level 3 Est. Patient 10:55:57 FAILURE ANALYSIS TECHNICIAN Jono black DO [facility] CPT-99683 Level 3 Est. Patient 17:29:05 CDT Arie mcqueen MD [facility] Procedures Code Procedure Name Date Entry Date Standard Desc ription CPT-67478 Abd compl w upright 09:07:26 FAILURE ANALYSIS TECHNICIAN CPT-21261 Ear Wash 16:12:47 FAILURE ANALYSIS TECHNICIAN CPT-OV Office Visit 11:12:01 CDT CPT-OV Office Visit 15:30:23 CDT CPT-56090 Sono pelvis non OB uterus ovaries cervix 15:50:44 CDT CPT-00642 Hand comp min 3V 16:42:32 CDT CPT-39522 Abd compl w upright 12:17:01 CDT CPT-34288 Nexplanon Placement 15:07:39 FAILURE ANALYSIS TECHNICIAN CPT-33826 Removal of IUD 15:07:39 FAILURE ANALYSIS TECHNICIAN CPT-05189 TB Tubersol 12:09:32 CDT CPT-87605 TB Tubersol 13:55:43 CDT
--- OUTSIDE RECORDS SUMMARY | 2020-03-03 07:32 | XMS REPORT | Clinical Summary ---
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 PANTOPRAZO LE SODIUM 42449349814 Active Carline Ochoa RPT,RMA Active PREDNISONE 20 MG TAB 2 tabs daily for 3 days, 1 t ab daily for 3 days, 1/2 tab daily for 2 days PREDNISONE 06100521436 No Longer Active Brii Larson APRN Active PREDNISONE 20 MG TAB 1 tablet twice daily for 2 d ays, then 1 tablet once daily for 2 days PREDNISONE 16933733630 No Longer Active Brii Larson APRN Active FLONASE 50 MCG/ACT SUSP 1 spray each nostril twice d aily for allergies and runny nose until gone FLUTICASONE PROPIONATE Active Jono Gagnon DO Active PROMETHAZINE HCL 12.5 MG TABS 1 tablet by mouth every 6 hours as needed for nausea/vomiting PROMETHAZINE HCL 18485705109 No Longe r Active Jono Gagnon DO Active CITRATE OF MAGNESIA ORAL SOLN 1 bottle today for constipation 20 07/10/15 MAGNESIUM CITRATE 14699747087 No Longer Active Jono Gagnon DO Active ZOFRAN 4 MG ORAL TABS 1 TAB PO Q 6 HRS PRN NAUSEA 2014 ONDANSETRON HCL 24688440132 No Longer Active Brii Larson APRN A ctive LOMOTIL 2.5-0.025 MG TAB 1 to 2 four times a day as needed f or diarrhea DIPHENOXYLATE-ATROPINE 88556635006 No Longer Active January Larson APRN Active AMOXICILLIN 500 MG TABS 2 tabs twice a day for 10 days AMOXICILLIN 33899155547 No Longer Active Brii Larson APRN Acti ve NEXPLANON IMPL ETONOGESTREL IMPL 42325405606 Active Rich Rosales MD Active CYCLOBENZAPRINE HCL 10 MG TABS 1/2 - 1 tablet by mouth three times daily as needed for muscle spasm/pain CYCLOBENZAPRINE HCL 42504060633 No Longer Active Arie Casper MD Active LOMOTIL 2.5-0.025 MG TABS 1 to 2 four times a day as needed for diarrhea DIPHENOXYLATE-ATROPINE 10815081340 No Longer Active Fozia Casper MD Active MACROBID 100 MG CAP 1 cap by mouth twice daily NITROFURANTOIN MONOHYD MACRO 56910796739 No Longer Active Arie Casper MD Active ZYRTEC ALLERGY 10 MG CAPS 1 po qd CETIRIZINE HCL 37281139631 No Longer Active Arie Casper MD Active AZITHROMYCIN 250 MG TABS 2 po qd x 1 day, then 1 po qd x 4 days AZITHROMYCIN 70374306970 No Longer Active Jillina Frazell [employer] CLEANING SUPERVISOR Active PREDNISONE 20 MG TAB 2 tabs daily for 3 days, 1 t ab daily for 3 days, 1/2 tab daily for 2 days PREDNISONE 57391855593 No Longer Active Jillina Frazell [employer] CLEANING SUPERVISOR Active PROMETHAZINE HCL 25 MG TABS 1 four times a day as needed for vomiting PROMETHAZINE HCL 31983336943 No Longer Active Myrna Roberto MD Active BACTRIM DS 800-160 MG TABS 1 twice a day SULFAMETHOXAZOLE-TRIMETHOPRIM 59070257458 No Longer Active Myrna Roberto MD Active VICKS DAYQUIL SEVERE COLD/FLU TABS 1 tab every 6 hours prn 12/10 [id number] TABS 38199446940 No Longer Active Myrna leigh MD Active GUAIFENESIN-CODEINE 100-10 MG/5ML ORAL SYRP 2 tsp every 6 hours prn GUAIFENESIN-CODEINE 39507114848 No Longer Active Myrna Roberto MD Active NAPROXEN 500 MG TAB one tab PO BID NAPROXEN 332 54448343 No Longer Active Myrna Roberto MD Active AUGMENTIN 875-125 MG TAB 1 tab by mouth twice daily with food 08/12/16 AMOXICILLIN-POT CLAVULANATE 68406467471 No Longer Active Liliana Estrada MD PhD Active AMOXICILLIN 500 MG CAP 1 tab by mouth 3 times daily 08/12/16 AMOXICILLIN 45377551291 No Longer Active Liliana Estrada MD PhD Acti ve TESSALON PERLES 100 MG CAP 1 tablet by mouth 3 times daily 11/01 BENZONATATE 07886545150 No Longer Active Liliana Estrada MD PhD Active FLAGYL 500 MG TAB 1 tablet by mouth two times daily 20 07/11/29 METRONIDAZOLE 14386101324 No Longer Active Nilam Weber Active ZITHROMAX 250 MG TAB 2 po today, then 1 po q days 2-5 AZITHROMYCIN 00137027139 No Longer Active Arie Casper MD Acti ve VITAMINS 0.8 MG TABS take 1 tab po qday 08/08 [id number] 82035522914 No Longer Active Arie Casper MD Active IBUPROFEN 800 MG TABS take one po Q 8 hours IBU PROFEN 25852257763 No Longer Active Arie Casper MD Active [facility] TUSSIN COUGH/COLD CF 5-10-100 MG/5ML LIQD 2 teaspoons ev eliud 4 hours [id number] 83076810210 No Longer Active Blaine Casper MD Active COMTREX COLD/COUGH DAY/NITE MS 5-2-10-325 MG MISC 2 caps deja ry 4 hours [id number] 01485951933 No Longer Active Da aleksandra Casper MD Active CHLORASEPTIC MAX SORE THROAT 15-10 MG LOZG 1 every 2 hours prn 2 BENZOCAINE-MENTHOL 16662696900 No Longer Active Arie Marcelo Active PREDNISONE 20 MG TAB 2 tabs daily for 3 days, 1 t ab daily for 3 days, 1/2 tab daily for 2 days PREDNISONE 96748286451 No Longer Active Jose Zhong MD Active AZITHROMYCIN 250 MG TABS 2 po qd x 1 day, then 1 po qd x 4 days AZITHROMYCIN 61486323899 No Longer Active Jose Zhong MD Active ZOFRAN ODT 4 MG TBDP 1 po q6hr PRN Nausea ONDAN SETRON 80410177032 No Longer Active Rich Rosales MD Active ZOFRAN 4 MG TABS 1 tablet every 4 hours ONDANSE JERRELL HCL 27784588698 No Longer Active Rich Rosales MD Active MUCINEX 600 MG [id number] Take 1-2 tablets every 12 hours GUAIFENESIN 74333109792 No Longer Active Rich Rosales MD Activ e BACTRIM 400-80 MG TABS take one po BID SULFAMETHOXAZOLE-TRIMETHOPRIM 23782827374 No Longer Active Abelardo HERNANDEZ Active AZITHROMYCIN 500 MG TABS 1 PO q day x 6 days AZ ITHROMYCIN 76356393246 No Longer Active Tin HERNANDEZ Active ZITHROMAX 250 MG TAB 2 po today, then 1 po q days 2-5 AZITHROMYCIN 05665998258 No Longer Active Arie Casper MD Acti ve ZITHROMAX 250 MG TAB 2 po today, then 1 po q days 2-5 AZITHROMYCIN 82077203369 No Longer Active Arie Casper MD Acti ve AMOXICILLIN 500 MG CAP 1 tab by mouth 3 times daily 09/23/20 AMOXICILLIN 13421955423 No Longer Active Arie Casper MD Acti ve BACTRIM DS 800-160 MG TAB 1 tab by mouth twice daily 2 TRIMETHOPRIM-SULFAMETHOXAZOLE 31743588323 No Longer Active Arie Casper MD Active AMOXICILLIN 500 MG TABS take 1 tab po TID AMOXI CILLIN 73898773044 No Longer Active Arie Casper MD Active BACTRIM DS 800-160 MG TAB 1 tab by mouth twice daily 2 BACTRIM DS 800-160 MG TAB 257349 TRIMETHOPRIM-SULFAMETHOXAZOLE Inac tive MUCINEX 600 MG [id number] Take 1-2 tablets every 12 hours MUCINEX 600 MG [id number] GUAIFENESIN Inactive ZOFRAN 4 MG TABS 1 tablet every 4 hours ZOFRAN 4 MG TABS 730223 ONDANSETRON HCL Inactive ZOFRAN ODT 4 MG TBDP 1 po q6hr PRN Nausea ZOFRAN ODT 4 MG TBDP 348694 ONDANSETRON Inactive CHLORASEPTIC MAX SORE THROAT 15-10 MG LOZG 1 every 2 hours prn 2 /04/30 CHLORASEPTIC MAX SORE THROAT 15-10 MG LOZG BENZO ARINA-MENTHOL Inactive COMTREX COLD/COUGH DAY/NITE MS 5-2-10-325 MG MISC 2 caps deja ry 4 hours COMTREX COLD/COUGH DAY/NITE MS 5-2-10-325 MG MIS C [id number] Inactive [facility] TUSSIN COUGH/COLD CF 5-10-100 MG/5ML LIQD 2 teaspoons ev eliud 4 hours [facility] TUSSIN COUGH/COLD CF 5-10-100 MG/5ML LIQD [id number] Inactive IBUPROFEN 800 MG TABS take one po Q 8 hours IBUPROFEN 800 MG TABS 075922 IBUPROFEN Inactive VITAMINS 0.8 MG TABS take 1 tab po qday 08/08 VITAMINS 0.8 MG TABS [id number] Inactive TESSALON PERLES 100 MG CAP 1 tablet by mouth 3 times daily 11/01 TESSALON PERLES 100 MG CAP 799238 BENZONATATE Inact zaid AMOXICILLIN 500 MG CAP 1 tab by mouth 3 times daily 08/12/16 AMOXICILLIN 500 MG CAP 208690 AMOXICILLIN Inactive GUAIFENESIN-CODEINE 100-10 MG/5ML ORAL SYRP 2 tsp every 6 hours prn GUAIFENESIN-CODEINE 100-10 MG/5ML ORAL SYRP 843076 GUAIFENESIN-CODEINE Inactive VICKS DAYQUIL SEVERE COLD/FLU TABS 1 tab every 6 hours prn 12/10 VICKS DAYQUIL SEVERE COLD/FLU TABS PHENYLEPHRINE -DM-GG-APAP TABS Inactive BACTRIM DS 800-160 MG TABS 1 twice a day BACTRIM DS 800- 160 MG TABS 077480 SULFAMETHOXAZOLE-TRIMETHOPRIM Inactive PROMETHAZINE HCL 25 MG TABS 1 four times a day as needed for vomiting PROMETHAZINE HCL 25 MG TABS 684726 PROMETHAZINE HCL Inactive ZYRTEC ALLERGY 10 MG CAPS 1 po qd ZY RTEC ALLERGY 10 MG CAPS CETIRIZINE HCL Inactive MACROBID 100 MG CAP 1 cap by mouth twice daily MACROBID 100 MG CAP 3732986 NITROFURANTOIN MONOHYD MACRO Inactive LOMOTIL 2.5-0.025 MG TABS 1 to 2 four times a day as needed for diarrhea LOMOTIL 2.5-0.025 MG TABS 3916862 DIPHENOXYLATE-A TROPINE Inactive CYCLOBENZAPRINE HCL 10 MG TABS 1/2 - 1 tablet by mouth three times daily as needed for muscle spasm/pain CYCLOBENZAP RINE HCL 10 MG TABS 591608 CYCLOBENZAPRINE HCL Inactive AMOXICILLIN 500 MG TABS 2 tabs twice a day for 10 days AMOXICILLIN 500 MG TABS 247070 AMOXICILLIN Inactive LOMOTIL 2.5-0.025 MG TAB 1 to 2 four times a day as needed f or diarrhea LOMOTIL 2.5-0.025 MG TAB 4589585 DIPHENOXYLATE-AT ROPINE Inactive ZOFRAN 4 MG ORAL TABS 1 TAB PO Q 6 HRS PRN NAUSEA 2014 ZOFRAN 4 MG ORAL TABS 380717 ONDANSETRON HCL Inactive CITRATE OF MAGNESIA ORAL SOLN 1 bottle today for constipation 20 07/10/15 CITRATE OF MAGNESIA ORAL SOLN 3310032 MAGNESIUM CITRATE Inactive PROMETHAZINE HCL 12.5 MG TABS 1 tablet by mouth every 6 hours as needed for nausea/vomiting PROMETHAZINE HCL 12.5 MG TABS 177330 PROMETHAZINE HCL Inactive PREDNISONE 20 MG TAB 1 tablet twice daily for 2 d ays, then 1 tablet once daily for 2 days PREDNISONE 20 MG TAB 518944 PREDNISONE Inac tive AMOXICILLIN 500 MG TABS take 1 tab po TID AMOXICILLIN 500 MG TABS 892828 AMOXICILLIN Inactive AMOXICILLIN 500 MG CAP 1 tab by mouth 3 times daily 09/23/20 AMOXICILLIN 500 MG CAP 464624 AMOXICILLIN Inactive ZITHROMAX 250 MG TAB 2 po today, then 1 po q days 2-5 ZITHROMAX 250 MG TAB 8472308 AZITHROMYCIN Inactive ZITHROMAX 250 MG TAB 2 po today, then 1 po q days 2-5 ZITHROMAX 250 MG TAB 4356532 AZITHROMYCIN Inactive AZITHROMYCIN 500 MG TABS 1 PO q day x 6 days 3 AZITHROMYCIN 500 MG TABS 5159765 AZITHROMYCIN Inactive BACTRIM 400-80 MG TABS take one po BID BA CTRIM 400-80 MG TABS 417199 SULFAMETHOXAZOLE-TRIMETHOPRIM Inactive AZITHROMYCIN 250 MG TABS 2 po qd x 1 day, then 1 po qd x 4 days AZITHROMYCIN 250 MG TABS 0584899 AZITHROMYCIN Inactiv e PREDNISONE 20 MG TAB 2 tabs daily for 3 days, 1 t ab daily for 3 days, 1/2 tab daily for 2 days PREDNISONE 20 MG TAB 260372 PREDNISON E Inactive ZITHROMAX 250 MG TAB 2 po today, then 1 po q days 2-5 ZITHROMAX 250 MG TAB 2030053 AZITHROMYCIN Inactive FLAGYL 500 MG TAB 1 tablet by mouth two times daily 07/11/29 FLAGYL 500 MG TAB 887790 METRONIDAZOLE Inactive AUGMENTIN 875-125 MG TAB 1 tab by mouth twice daily with food 20 08/12/16 AUGMENTIN 875-125 MG TAB 172229 AMOXICILLIN-POT CLAVULA ANGELO Inactive NAPROXEN 500 MG TAB one tab PO BID NAPROXEN 500 MG TAB 337823 NAPROXEN Inactive PREDNISONE 20 MG TAB 2 tabs daily for 3 days, 1 t ab daily for 3 days, 1/2 tab daily for 2 days PREDNISONE 20 MG TAB 513098 PREDNISON E Inactive AZITHROMYCIN 250 MG TABS 2 po qd x 1 day, then 1 po qd x 4 days AZITHROMYCIN 250 MG TABS 4778767 AZITHROMYCIN Inactiv e PREDNISONE 20 MG TAB 2 tabs daily for 3 days, 1 t ab daily for 3 days, 1/2 tab daily for 2 days PREDNISONE 20 MG TAB 084544 PREDNISON E Inactive ZITHROMAX Z-EMIL 250 MG TABS 2 today, then 1 daily for 4 days 201 03/31/18 ZITHROMAX Z-EMIL 250 MG TABS 8887152 AZITHROMYCIN Inac tive Advance Directives Directive Description [...] Panel - Chemistry sodium, serum 136 mmol/L 532-373 5331/04/26 carbon dioxide, venous blood 29.9 mmol/L 21.0-32 [...] - Chem istry sodium, serum 139 mmol/L 477-864 4773/12/15 carbon dioxide, venous blood 30.2 mmol/L 21.0-32 [...] Negative Encounters Code Encounter Date Provider Facility CPT-[id number] Level 3 Est. Patient 09:24:42 CDT Steve Formerly named [facility] CPT-68162 Level 3 Est. Patient 09:12:56 CDT Arie mcqueen MD [facility] CPT-34968 Level 3 Est. Patient 16:40:54 CDT Jose Zhong MD [facility] CPT-51071 Level 2 Est. Patient 13:01:13 CDT Steve Formerly named [facility] CPT-78419 Level 3 Est. Patient 11:55:30 HAND POLISHER Jono black DO [facility] CPT-79811 Level 3 Est. Patient 09:52:36 HAND POLISHER Steve CABRERA [facility] CPT-76559 Level 3 Est. Patient 16:25:33 HAND POLISHER Rich Rosales MD [facility] CPT-66942 Level 3 Est. Patient 20:33:55 CDT Arie mcqueen MD [facility] CPT-96615 Level 3 Est. Patient 14:18:20 CDT Rich Rosales MD [facility] CPT-54173 Level 4 Est. Patient 09:34:31 CDT Arie mcqueen MD [facility]-20651 Level 3 Est. Patient 09:08:55 HAND POLISHER Liliana vincent MD PhD [facility] CPT-95974 Level 3 Est. Patient 16:44:07 HAND POLISHER Arie mcqueen MD [facility] CPT-47219 Level 3 Est. Patient 10:44:27 CDT Arie mcqueen MD [facility] CPT-69401 Level 3 Est. Patient 08:55:41 CDT Jose Zhong MD [facility] CPT-08555 Level 3 Est. Patient 18:37:31 CDT Liliana vincent MD PhD [facility] CPT-49234 Level 3 Est. Patient 14:28:23 CDT Abelardo HERNANDEZ [facility] CPT-94887 Level 3 Est. Patient 15:18:13 HAND POLISHER Arie mcqueen MD [facility] CPT-14584 Level 3 Est. Patient 10:11:29 HAND POLISHER Arie mcqueen MD [facility] CPT-91657 Level 3 Est. Patient 10:55:57 HAND POLISHER Jono black DO [facility] CPT-82684 Level 3 Est. Patient 17:29:05 CDT Arie mcqueen MD [facility] Procedures Code Procedure Name Date Entry Date Standard Desc ription CPT-02741 First Vx - Ix admin via ID I M or jet injects without counseling by physician 16:57:10 CDT CPT-47066 Fluzone Preservative Free Intramuscular Suspension 16:57:10 CDT CPT-J0696 Rocephin 1000 mg (Ceftriaxone) 11:49:23 CDT CPT-J1040 Depo Medrol 80 mg (Methyl Prednisolone A cetate) 11:49:23 CDT CPT-J1100 Decadron 8mg (Dexamethasone) 11:49:23 CDT 2 CPT-63502 Abx/Therapy Injection 11:49:23 CDT CPT-27828 Abx/Therapy Injection 11:49:23 CDT CPT-18860 Abd compl w upright 09:07:26 HAND POLISHER CPT-55054 Ear Wash 16:12:47 HAND POLISHER CPT-OV Office Visit 11:12:01 CDT CPT-OV Office Visit 15:30:23 CDT CPT-41130 Sono pelvis non OB uterus ovaries cervix 15:50:44 CDT CPT-02186 Hand comp min 3V 16:42:32 CDT CPT-81841 Abd compl w upright 12:17:01 CDT CPT-27514 Nexplanon Placement 15:07:39 HAND POLISHER CPT-16307 Removal of IUD 15:07:39 HAND POLISHER CPT-17217 TB Tubersol 12:09:32 CDT CPT-81916 TB Tubersol 13:55:43 CDT
--- OUTSIDE RECORDS SUMMARY | 2020-03-03 07:32 | XMS REPORT | Clinical Summary ---
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 PANTOPRAZO LE SODIUM 78974793053 Active Jose Zhong MD Active PREDNISONE 20 MG TAB 2 tabs daily for 3 days, 1 t ab daily for 3 days, 1/2 tab daily for 2 days PREDNISONE 43342612380 No Longer Active Brii Larson APRN Active PREDNISONE 20 MG TAB 1 tablet twice daily for 2 d ays, then 1 tablet once daily for 2 days PREDNISONE 14823481142 No Longer Active Brii Larson APRN Active FLONASE 50 MCG/ACT SUSP 1 spray each nostril twice d aily for allergies and runny nose until gone FLUTICASONE PROPIONATE Active Jono Gagnon DO Active PROMETHAZINE HCL 12.5 MG TABS 1 tablet by mouth every 6 hours as needed for nausea/vomiting PROMETHAZINE HCL 27690905507 No Longe r Active Jono Gagnon DO Active CITRATE OF MAGNESIA ORAL SOLN 1 bottle today for constipation 20 07/10/15 MAGNESIUM CITRATE 77383689527 No Longer Active Jono Gagnon DO Active ZOFRAN 4 MG ORAL TABS 1 TAB PO Q 6 HRS PRN NAUSEA 2014 ONDANSETRON HCL 36734638357 No Longer Active Brii Larson APRN A ctive LOMOTIL 2.5-0.025 MG TAB 1 to 2 four times a day as needed f or diarrhea DIPHENOXYLATE-ATROPINE 65046450078 No Longer Active January Larson APRN Active AMOXICILLIN 500 MG TABS 2 tabs twice a day for 10 days AMOXICILLIN 63260844336 No Longer Active Brii Larson APRN Acti ve NEXPLANON IMPL ETONOGESTREL IMPL 68509808913 Active Rich Rosales MD Active CYCLOBENZAPRINE HCL 10 MG TABS 1/2 - 1 tablet by mouth three times daily as needed for muscle spasm/pain CYCLOBENZAPRINE HCL 90196925897 No Longer Active Arie Casper MD Active LOMOTIL 2.5-0.025 MG TABS 1 to 2 four times a day as needed for diarrhea DIPHENOXYLATE-ATROPINE 09745286456 No Longer Active Fozia Casper MD Active MACROBID 100 MG CAP 1 cap by mouth twice daily NITROFURANTOIN MONOHYD MACRO 92469672437 No Longer Active Arie Casper MD Active ZYRTEC ALLERGY 10 MG CAPS 1 po qd CETIRIZINE HCL 42418262409 No Longer Active Arie Casper MD Active AZITHROMYCIN 250 MG TABS 2 po qd x 1 day, then 1 po qd x 4 days AZITHROMYCIN 28776150192 No Longer Active Jillina Franaomi CABRERA Active PREDNISONE 20 MG TAB 2 tabs daily for 3 days, 1 t ab daily for 3 days, 1/2 tab daily for 2 days PREDNISONE 89589818336 No Longer Active Jillina Frazell RICK Active PROMETHAZINE HCL 25 MG TABS 1 four times a day as needed for vomiting PROMETHAZINE HCL 15270316469 No Longer Active Myrna Roberto MD Active BACTRIM DS 800-160 MG TABS 1 twice a day SULFAMETHOXAZOLE-TRIMETHOPRIM 06045597863 No Longer Active Myrna Roberto MD Active VICKS DAYQUIL SEVERE COLD/FLU TABS 1 tab every 6 hours prn 12/10 [id number]-QJ-FL-APAP TABS 99102817750 No Longer Active Myrna leigh MD Active GUAIFENESIN-CODEINE 100-10 MG/5ML ORAL SYRP 2 tsp every 6 hours prn GUAIFENESIN-CODEINE 09219270848 No Longer Active Myrna Roberto MD Active NAPROXEN 500 MG TAB one tab PO BID NAPROXEN 332 98237763 No Longer Active Myrna Roberto MD Active AUGMENTIN 875-125 MG TAB 1 tab by mouth twice daily with food 20 08/12/16 AMOXICILLIN-POT CLAVULANATE 00230101967 No Longer Active Liliana Estrada MD PhD Active AMOXICILLIN 500 MG CAP 1 tab by mouth 3 times daily 08/12/16 AMOXICILLIN 72192858924 No Longer Active Liliana Estrada MD PhD Acti ve TESSALON PERLES 100 MG CAP 1 tablet by mouth 3 times daily 11/01 BENZONATATE 42530674676 No Longer Active Liliana Estrada MD PhD Active FLAGYL 500 MG TAB 1 tablet by mouth two times daily 07/11/29 METRONIDAZOLE 06931164615 No Longer Active Nilamnory Weber Active ZITHROMAX 250 MG TAB 2 po today, then 1 po q days 2-5 AZITHROMYCIN 03473835937 No Longer Active Arie Casper MD Acti ve VITAMINS 0.8 MG TABS take 1 tab po qday 08/08 [id number] 93535224496 No Longer Active Arie Casper MD Active IBUPROFEN 800 MG TABS take one po Q 8 hours IBU PROFEN 25864664679 No Longer Active Arie Casper MD Active [facility] TUSSIN COUGH/COLD CF 5-10-100 MG/5ML LIQD 2 teaspoons ev eliud 4 hours [id number]-FJ-DX 72310723174 No Longer Active Blaine Casper MD Active COMTREX COLD/COUGH DAY/NITE MS 5-2-10-325 MG MISC 2 caps deja ry 4 hours MUWAOEIIA-PUD-KL-APAP 52042867840 No Longer Active Landon Casper MD Active CHLORASEPTIC MAX SORE THROAT 15-10 MG LOZG 1 every 2 hours prn 2 BENZOCAINE-MENTHOL 54361700470 No Longer Active Arie Marcelo Active PREDNISONE 20 MG TAB 2 tabs daily for 3 days, 1 t ab daily for 3 days, 1/2 tab daily for 2 days PREDNISONE 94757245830 No Longer Active Jose Zhong MD Active AZITHROMYCIN 250 MG TABS 2 po qd x 1 day, then 1 po qd x 4 days AZITHROMYCIN 71485493998 No Longer Active Jose Zhong MD Active ZOFRAN ODT 4 MG TBDP 1 po q6hr PRN Nausea ONDAN SETRON 91171695454 No Longer Active Rich Rosales MD Active ZOFRAN 4 MG TABS 1 tablet every 4 hours ONDANSE JERRELL HCL 80711027518 No Longer Active Rich Rosales MD Active MUCINEX 600 MG MI78N-IDI Take 1-2 tablets every 12 hours GUAIFENESIN 98147151007 No Longer Active Rich Rosales MD Activ e BACTRIM 400-80 MG TABS take one po BID SULFAMETHOXAZOLE-TRIMETHOPRIM 75521813367 No Longer Active Abelardo HERNANDEZ Active AZITHROMYCIN 500 MG TABS 1 PO q day x 6 days AZ ITHROMYCIN 32554082221 No Longer Active Tin HERNANDEZ Active ZITHROMAX 250 MG TAB 2 po today, then 1 po q days 2-5 AZITHROMYCIN 75644445453 No Longer Active Arie Casper MD Acti ve ZITHROMAX 250 MG TAB 2 po today, then 1 po q days 2-5 AZITHROMYCIN 32976171682 No Longer Active Arie Casper MD Acti ve AMOXICILLIN 500 MG CAP 1 tab by mouth 3 times daily 20 09/23/20 AMOXICILLIN 93840932068 No Longer Active Arie Casper MD Acti ve BACTRIM DS 800-160 MG TAB 1 tab by mouth twice daily 2 TRIMETHOPRIM-SULFAMETHOXAZOLE 37606125037 No Longer Active Arie Casper MD Active AMOXICILLIN 500 MG TABS take 1 tab po TID AMOXI CILLIN 34985870118 No Longer Active Arie Casper MD Active BACTRIM DS 800-160 MG TAB 1 tab by mouth twice daily 2 BACTRIM DS 800-160 MG TAB 750838 TRIMETHOPRIM-SULFAMETHOXAZOLE Inac tive MUCINEX 600 MG [id number]-DKL Take 1-2 tablets every 12 hours MUCINEX 600 MG [id number] GUAIFENESIN Inactive ZOFRAN 4 MG TABS 1 tablet every 4 hours ZOFRAN 4 MG TABS 944493 ONDANSETRON HCL Inactive ZOFRAN ODT 4 MG TBDP 1 po q6hr PRN Nausea ZOFRAN ODT 4 MG TBDP 181375 ONDANSETRON Inactive CHLORASEPTIC MAX SORE THROAT 15-10 MG LOZG 1 every 2 hours prn 2 CHLORASEPTIC MAX SORE THROAT 15-10 MG LOZG BENZO ARINA-MENTHOL Inactive COMTREX COLD/COUGH DAY/NITE MS 5-2-10-325 MG MISC 2 caps deja ry 4 hours COMTREX COLD/COUGH DAY/NITE MS 5-2-10-325 MG MIS C [id number]-RLN-QW-APAP Inactive [facility] TUSSIN COUGH/COLD CF 5-10-100 MG/5ML LIQD 2 teaspoons ev eliud 4 hours [facility] TUSSIN COUGH/COLD CF 5-10-100 MG/5ML LIQD ILCMUMOVULKUG-PM-UR Inactive IBUPROFEN 800 MG TABS take one po Q 8 hours IBUPROFEN 800 MG TABS IBUPROFEN Inactive VITAMINS 0.8 MG TABS take 1 tab po qday 08/08 VITAMINS 0.8 MG TABS [id number]-RDG-WH-FA Inactive TESSALON PERLES 100 MG CAP 1 tablet by mouth 3 times daily 11/01 TESSALON PERLES 100 MG CAP 868536 BENZONATATE Inact zaid AMOXICILLIN 500 MG CAP 1 tab by mouth 3 times daily 08/12/16 AMOXICILLIN 500 MG CAP 946971 AMOXICILLIN Inactive GUAIFENESIN-CODEINE 100-10 MG/5ML ORAL SYRP 2 tsp every 6 hours prn GUAIFENESIN-CODEINE 100-10 MG/5ML ORAL SYRP 429127 GUAIFENESIN-CODEINE Inactive VICKS DAYQUIL SEVERE COLD/FLU TABS 1 tab every 6 hours prn 12/10 VICKS DAYQUIL SEVERE COLD/FLU TABS PHENYLEPHRINE -DM-GG-APAP TABS Inactive BACTRIM DS 800-160 MG TABS 1 twice a day BACTRIM DS 800- 160 MG TABS 293674 SULFAMETHOXAZOLE-TRIMETHOPRIM Inactive PROMETHAZINE HCL 25 MG TABS 1 four times a day as needed for vomiting PROMETHAZINE HCL 25 MG TABS 027512 PROMETHAZINE HCL Inactive ZYRTEC ALLERGY 10 MG CAPS 1 po qd ZY RTEC ALLERGY 10 MG CAPS CETIRIZINE HCL Inactive MACROBID 100 MG CAP 1 cap by mouth twice daily MACROBID 100 MG CAP 0633197 NITROFURANTOIN MONOHYD MACRO Inactive LOMOTIL 2.5-0.025 MG TABS 1 to 2 four times a day as needed for diarrhea LOMOTIL 2.5-0.025 MG TABS 2656357 DIPHENOXYLATE-A TROPINE Inactive CYCLOBENZAPRINE HCL 10 MG TABS 1/2 - 1 tablet by mouth three times daily as needed for muscle spasm/pain CYCLOBENZAP RINE HCL 10 MG TABS 867286 CYCLOBENZAPRINE HCL Inactive AMOXICILLIN 500 MG TABS 2 tabs twice a day for 10 days AMOXICILLIN 500 MG TABS 817921 AMOXICILLIN Inactive LOMOTIL 2.5-0.025 MG TAB 1 to 2 four times a day as needed f or diarrhea LOMOTIL 2.5-0.025 MG TAB 6714910 DIPHENOXYLATE-AT ROPINE Inactive ZOFRAN 4 MG ORAL TABS 1 TAB PO Q 6 HRS PRN NAUSEA 2014 ZOFRAN 4 MG ORAL TABS 944239 ONDANSETRON HCL Inactive CITRATE OF MAGNESIA ORAL SOLN 1 bottle today for constipation 20 07/10/15 CITRATE OF MAGNESIA ORAL SOLN 4939466 MAGNESIUM CITRATE Inactive PROMETHAZINE HCL 12.5 MG TABS 1 tablet by mouth every 6 hours as needed for nausea/vomiting PROMETHAZINE HCL 12.5 MG TABS 941951 PROMETHAZINE HCL Inactive PREDNISONE 20 MG TAB 1 tablet twice daily for 2 d ays, then 1 tablet once daily for 2 days PREDNISONE 20 MG TAB 522197 PREDNISONE Inac tive AMOXICILLIN 500 MG TABS take 1 tab po TID AMOXICILLIN 500 MG TABS 121541 AMOXICILLIN Inactive AMOXICILLIN 500 MG CAP 1 tab by mouth 3 times daily 09/23/20 AMOXICILLIN 500 MG CAP 012995 AMOXICILLIN Inactive ZITHROMAX 250 MG TAB 2 po today, then 1 po q days 2-5 ZITHROMAX 250 MG TAB 6958556 AZITHROMYCIN Inactive ZITHROMAX 250 MG TAB 2 po today, then 1 po q days 2-5 ZITHROMAX 250 MG TAB 4435286 AZITHROMYCIN Inactive AZITHROMYCIN 500 MG TABS 1 PO q day x 6 days 3 AZITHROMYCIN 500 MG TABS 7162071 AZITHROMYCIN Inactive BACTRIM 400-80 MG TABS take one po BID BA CTRIM 400-80 MG TABS 077229 SULFAMETHOXAZOLE-TRIMETHOPRIM Inactive AZITHROMYCIN 250 MG TABS 2 po qd x 1 day, then 1 po qd x 4 days AZITHROMYCIN 250 MG TABS 6139611 AZITHROMYCIN Inactiv e PREDNISONE 20 MG TAB 2 tabs daily for 3 days, 1 t ab daily for 3 days, 1/2 tab daily for 2 days PREDNISONE 20 MG TAB 242407 PREDNISON E Inactive ZITHROMAX 250 MG TAB 2 po today, then 1 po q days 2-5 ZITHROMAX 250 MG TAB 0717819 AZITHROMYCIN Inactive FLAGYL 500 MG TAB 1 tablet by mouth two times daily 07/11/29 FLAGYL 500 MG TAB 777623 METRONIDAZOLE Inactive AUGMENTIN 875-125 MG TAB 1 tab by mouth twice daily with food 20 08/12/16 AUGMENTIN 875-125 MG TAB 497746 AMOXICILLIN-POT CLAVULA ANGELO Inactive NAPROXEN 500 MG TAB one tab PO BID NAPROXEN 500 MG TAB 578953 NAPROXEN Inactive PREDNISONE 20 MG TAB 2 tabs daily for 3 days, 1 t ab daily for 3 days, 1/2 tab daily for 2 days PREDNISONE 20 MG TAB 963984 PREDNISON E Inactive AZITHROMYCIN 250 MG TABS 2 po qd x 1 day, then 1 po qd x 4 days AZITHROMYCIN 250 MG TABS 7689563 AZITHROMYCIN Inactiv e PREDNISONE 20 MG TAB 2 tabs daily for 3 days, 1 t ab daily for 3 days, 1/2 tab daily for 2 days PREDNISONE 20 MG TAB 205085 PREDNISON E Inactive Advance Directives Directive Description [...] 276 10^3/MM^3 10*3/mm3 142-424 Lab Report: Chlamydia/GC APTIMA/[id number] - Lab chlamydia DNA probe NOT DETECTED NOT DETECTED Lab Report: Chlamydia/GC APTIMA/37285 - Microbiology Neisseria gonorrhoeae DNA probe NOT DETECTED NO T DETECTED Lab Report: Comp. Metabolic Panel - Chem istry sodium, serum 139 mmol/L 877-040 5739/12/15 carbon dioxide, venous blood 30.2 mmol/L 21.0-32 .0 potassium, serum 3.4 mmol/L 3.5-5.2 chloride, serum 101 mmol/L 98-107 blood glucose 92 mg/dL 65-110 urea nitrogen, blood 5 mg/dL 7-18 creatinine, serum 0.81 mg/dL 0.55-1.30 alanine aminotransferase (SGPT), serum 20 U/L 12-78 aspartate aminotransferase (SGOT), serum 10 U/L 15-37 calcium, serum 8.4 mg/dL 8.5-10.1 bilirubin, serum, total 0.60 mg/dL 0.00-1.00 Lab Report: HIV-1/2 Agn/Darcy/37874, HEPAT ITIS PANEL, ACUTE W/REFLE - Chemistry [...] urine, semiquantitative 5.5 5.0-8.5 specific gravity, urine >=1.030 1.000-1.030 appearance, urine Clear Clear urine color Yellow Colorless;Lightyellow;St raw;Yellow leukocyte esterase, urine, by dipstick Negative Negative [...] Negative urobilinogen, urine, semiquantitative (dipstick) 0.2 Normal Encounters Code Encounter Date Provider Facility CPT-02502 Level 3 Est. Patient 16:40:54 CDT Jose Zhong MD [facility] CPT-57176 Level 2 Est. Patient 13:01:13 CDT Steve CABRERA [facility] CPT-51180 Level 3 Est. Patient 11:55:30 [employer] Jono black DO [facility] CPT-75720 Level 3 Est. Patient 09:52:36 [employer] Steve PAREKHN [facility] CPT-02458 Level 3 Est. Patient 16:25:33 [employer] Rich Rosales MD [facility] CPT-59744 Level 3 Est. Patient 20:33:55 CDT Arie mcqueen MD [facility] CPT-48161 Level 3 Est. Patient 14:18:20 CDT Rich Rosales MD [facility]-34508 Level 4 Est. Patient 09:34:31 CDT Arie mcqueen MD [facility] CPT-18463 Level 3 Est. Patient 09:08:55 [employer] Liliana vincent MD [facility]-32985 Level 3 Est. Patient 16:44:07 [employer] Arie mcqueen MD [facility] CPT-30218 Level 3 Est. Patient 10:44:27 CDT Arie mcqueen MD [facility]-36620 Level 3 Est. Patient 08:55:41 CDT Jose Zhong MD [facility]-71847 Level 3 Est. Patient 18:37:31 CDT Liliana vincent MD [facility] CPT-29223 Level 3 Est. Patient 14:28:23 CDT Abelardo HERNANDEZ [facility] CPT-51887 Level 3 Est. Patient 15:18:13 [employer] Arie mcqueen MD [facility]-33780 Level 3 Est. Patient 10:11:29 [employer] Arie mcqueen MD [facility] CPT-10059 Level 3 Est. Patient 10:55:57 [employer] Jono black DO [facility] CPT-75256 Level 3 Est. Patient 17:29:05 CDT Arie mcqueen MD [facility] Procedures Code Procedure Name Date Entry Date Standard Desc ription CPT-15989 Abd compl w upright 09:07:26 [employer]ICK [employer] CPT-66686 Ear Wash 16:12:47 [employer] CPT-OV Office Visit 11:12:01 CDT CPT-OV Office Visit 15:30:23 CDT CPT-75440 Sono pelvis non OB uterus ovaries cervix 15:50:44 CDT CPT-47659 Hand comp min 3V 16:42:32 CDT CPT-66494 Abd compl w upright 12:17:01 CDT CPT-99814 Nexplanon Placement 15:07:39 [employer]ICK [employer] CPT-07711 Removal of IUD 15:07:39 [employer]ICK [employer]EVER[employer] CPT-19470 TB Tubersol 12:09:32 CDT CPT-54275 TB Tubersol 13:55:43 CDT
--- OUTSIDE RECORDS SUMMARY | 2020-03-03 07:32 | XMS REPORT | Clinical Summary ---
[...] TAB one tab PO BID NAPROXEN 332 67158240 Active Myrna Roberto MD Active LOMOTIL 2.5-0.025 MG TABS 1 to 2 four times a day as needed for diarrhea DIPHENOXYLATE-ATROPINE 22700543944 Active Rich mcintosh MD Active PROMETHAZINE HCL 25 MG TABS 1 four times a day as needed for vomiting PROMETHAZINE HCL 54363776441 Active Rich Rosales MD Active BACTRIM DS 800-160 MG TABS 1 twice a day SULFAMETHOXAZOLE-TRIMETHOPRIM 68009889509 Active Rich Rosales MD Active AUGMENTIN 875-125 MG TAB 1 tab by mouth twice daily with food 20 08/12/16 AMOXICILLIN-POT CLAVULANATE 52367660117 No Longer Active Liliana Estrada MD PhD Active CYCLOBENZAPRINE HCL 10 MG TABS 1/2 - 1 tablet by mouth three times daily as needed for muscle spasm/pain CYCLOBENZAPRINE HCL 73936 591129 Active Liliana Estrada MD PhD Active GUAIFENESIN-CODEINE 100-10 MG/5ML ORAL SYRP 2 tsp every 6 hours prn GUAIFENESIN-CODEINE 20696712688 Active Liliana Estrada MD PhD Active VICKS DAYQUIL SEVERE COLD/FLU TABS 1 tab every 6 hours prn HCUDZGXBDFXXE-LI-AS-APAP TABS 09036250903 Active Liliana Estrada MD PhD Active AMOXICILLIN 500 MG CAP 1 tab by mouth 3 times daily 08/12/16 AMOXICILLIN 35788789054 No Longer Active Liliana Estrada MD PhD Acti ve TESSALON PERLES 100 MG CAP 1 tablet by mouth 3 times daily 11/01 BENZONATATE 16418475782 No Longer Active Liliana Estrada MD PhD Active FLAGYL 500 MG TAB 1 tablet by mouth two times daily 07/11/29 METRONIDAZOLE 07425579148 No Longer Active Nilam Weber Active ZITHROMAX 250 MG TAB 2 po today, then 1 po q days 2-5 AZITHROMYCIN 02487127593 No Longer Active Arie Casper MD Acti ve VITAMINS 0.8 MG TABS take 1 tab po qday 08/08 [id number]-TAT-SG-FA 87255382935 No Longer Active Arie Casper MD Active IBUPROFEN 800 MG TABS take one po Q 8 hours IBU PROFEN 39399903454 No Longer Active Arie Casper MD Active [facility] TUSSIN COUGH/COLD CF 5-10-100 MG/5ML LIQD 2 teaspoons ev eliud 4 hours AJNUGHYVEJNKT-VT-UN 15848913950 No Longer Active Blaine Casper MD Active COMTREX COLD/COUGH DAY/NITE MS 5-2-10-325 MG MISC 2 caps deja ry 4 hours MSYMJDKJY-KGR-LP-APAP 21185467297 No Longer Active Da aleksandra Casper MD Active CHLORASEPTIC MAX SORE THROAT 15-10 MG LOZG 1 every 2 hours prn 2 BENZOCAINE-MENTHOL 98378419590 No Longer Active Arie Marcelo Active PREDNISONE 20 MG TAB 2 tabs daily for 3 days, 1 t ab daily for 3 days, 1/2 tab daily for 2 days PREDNISONE 49227199995 No Longer Active Jose Zhong MD Active AZITHROMYCIN 250 MG TABS 2 po qd x 1 day, then 1 po qd x 4 days AZITHROMYCIN 27246272618 No Longer Active Jose Zhong MD Active ZOFRAN ODT 4 MG TBDP 1 po q6hr PRN Nausea ONDAN SETRON 72051766393 No Longer Active Rich Rosales MD Active ZOFRAN 4 MG TABS 1 tablet every 4 hours ONDANSE JERRELL HCL 61067133277 No Longer Active Rich Rosales MD Active MUCINEX 600 MG JZ18A-VIY Take 1-2 tablets every 12 hours GUAIFENESIN 53724489578 No Longer Active Rich Rosales MD Activ e BACTRIM 400-80 MG TABS take one po BID SULFAMETHOXAZOLE-TRIMETHOPRIM 10967624936 No Longer Active Abelardo HERNANDEZ Active AZITHROMYCIN 500 MG TABS 1 PO q day x 6 days AZ ITHROMYCIN 99472566148 No Longer Active Tin HERNANDEZ Active ZITHROMAX 250 MG TAB 2 po today, then 1 po q days 2-5 AZITHROMYCIN 53299489153 No Longer Active Arie Casper MD Acti ve ZITHROMAX 250 MG TAB 2 po today, then 1 po q days 2-5 AZITHROMYCIN 96561191846 No Longer Active Arie Casper MD Acti ve AMOXICILLIN 500 MG CAP 1 tab by mouth 3 times daily 09/23/20 AMOXICILLIN 78905917612 No Longer Active Arie Casper MD Acti ve BACTRIM DS 800-160 MG TAB 1 tab by mouth twice daily 2 TRIMETHOPRIM-SULFAMETHOXAZOLE 62053563212 No Longer Active Arie Casper MD Active AMOXICILLIN 500 MG TABS take 1 tab po TID AMOXI CILLIN 89730889572 No Longer Active Arie Casper MD Active AMOXICILLIN 500 MG CAP 1 tab by mouth 3 times daily 08/12/16 AMOXICILLIN 500 MG CAP 737836 AMOXICILLIN Inactive AMOXICILLIN 500 MG CAP 1 tab by mouth 3 times daily 09/23/20 AMOXICILLIN 500 MG CAP 782899 AMOXICILLIN Inactive BACTRIM 400-80 MG TABS take one po BID BA CTRIM 400-80 MG TABS 287755 SULFAMETHOXAZOLE-TRIMETHOPRIM Inactive BACTRIM DS 800-160 MG TAB 1 tab by mouth twice daily 2 BACTRIM DS 800-160 MG TAB TRIMETHOPRIM-SULFAMETHOXAZOLE Inac tive FLAGYL 500 MG TAB 1 tablet by mouth two times daily 07/11/29 FLAGYL 500 MG TAB 718766 METRONIDAZOLE Inactive IBUPROFEN 800 MG TABS take one po Q 8 hours IBUPROFEN 800 MG TABS 565110 IBUPROFEN Inactive PREDNISONE 20 MG TAB 2 tabs daily for 3 days, 1 t ab daily for 3 days, 1/2 tab daily for 2 days PREDNISONE 20 MG TAB 769153 PREDNISON E Inactive ZOFRAN 4 MG TABS 1 tablet every 4 hours ZOFRAN 4 MG TABS 776156 ONDANSETRON HCL Inactive TESSALON PERLES 100 MG CAP 1 tablet by mouth 3 times daily 11/01 TESSALON PERLES 100 MG CAP 595535 BENZONATATE Inact zaid AUGMENTIN 875-125 MG TAB 1 tab by mouth twice daily with food 20 08/12/16 AUGMENTIN 875-125 MG TAB 649888 AMOXICILLIN-POT CLAVULA ANGELO Inactive AMOXICILLIN 500 MG TABS take 1 tab po TID AMOXICILLIN 500 MG TABS 606680 AMOXICILLIN Inactive AZITHROMYCIN 500 MG TABS 1 PO q day x 6 days 3 AZITHROMYCIN 500 MG TABS 0158082 AZITHROMYCIN Inactive ZITHROMAX 250 MG TAB 2 po today, then 1 po q days 2-5 ZITHROMAX 250 MG TAB 5821612 AZITHROMYCIN Inactive ZITHROMAX 250 MG TAB 2 po today, then 1 po q days 2-5 ZITHROMAX 250 MG TAB 2821138 AZITHROMYCIN Inactive ZITHROMAX 250 MG TAB 2 po today, then 1 po q days 2-5 ZITHROMAX 250 MG TAB 4878119 AZITHROMYCIN Inactive AZITHROMYCIN 250 MG TABS 2 po qd x 1 day, then 1 po qd x 4 days AZITHROMYCIN 250 MG TABS 3715630 AZITHROMYCIN Inactiv e ZOFRAN ODT 4 MG TBDP 1 po q6hr PRN Nausea ZOFRAN ODT 4 MG TBDP 164695 ONDANSETRON Inactive MUCINEX 600 MG HO19S-FAV Take 1-2 tablets every 12 hours MUCINEX 600 MG XT46N-HET GUAIFENESIN Inactive COMTREX COLD/COUGH DAY/NITE MS 5-2-10-325 MG MISC 2 caps deja ry 4 hours COMTREX COLD/COUGH DAY/NITE MS 5-2-10-325 MG MIS C QEVRYJALV-TBA-GY-APAP Inactive VITAMINS 0.8 MG TABS take 1 tab po qday 08/08 VITAMINS 0.8 MG TABS NPSFFHHA-AZM-II-FA Inactive [facility] TUSSIN COUGH/COLD CF 5-10-100 MG/5ML LIQD 2 teaspoons ev eliud 4 hours [facility] TUSSIN COUGH/COLD CF 5-10-100 MG/5ML LIQD [id number]-IR-EQ Inactive CHLORASEPTIC MAX SORE THROAT 15-10 MG LOZG 1 every 2 hours prn 2 /04/30 CHLORASEPTIC MAX SORE THROAT 15-10 MG LOZG BENZO ARINA-MENTHOL Inactive Advance Directives Directive Description Start Date [...] 214 10^3/MM^3 10*3/mm3 142-424 Lab Report: Chlamydia/GC APTIMA/[id number] - Lab chlamydia DNA probe NOT DETECTED NOT DETECTED Lab Report: Chlamydia/GC APTIMA/[id number] - Microbiology Neisseria gonorrhoeae DNA probe NOT [...] 5.0-8.5 Encounters Code Encounter Date Provider Facility CPT-17434 Level 3 Est. Patient 14:18:20 CDT Rich Rosales MD [facility] CPT-77100 Level 4 Est. Patient 09:34:31 CDT Arie mcqueen MD [facility] CPT-13102 Level 3 Est. Patient 09:08:55 REGIONAL 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FINANCE Liliana vincent MD PhD [facility] CPT-55699 Level 3 Est. Patient 16:44:07 REGIONAL 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FINANCE Arie mcqueen MD [facility] CPT-04349 Level 3 Est. Patient 10:44:27 CDT Arie mcqueen MD [facility] CPT-02752 Level 3 Est. Patient 08:55:41 CDT Jose Zhong MD [facility] CPT-17642 Level 3 Est. Patient 18:37:31 CDT Liliana vincent MD PhD [facility] CPT-59647 Level 3 Est. Patient 14:28:23 [address] [facility] CPT-77302 Level 3 Est. Patient 15:18:13 REGIONAL 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FINANCE Arie mcqueen MD [facility] CPT-06725 Level 3 Est. Patient 10:11:29 REGIONAL 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FINANCE Arie mcqueen MD [facility] CPT-50866 Level 3 Est. Patient 10:55:57 REGIONAL 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FINANCE Jono black DO [facility] CPT-55271 Level 3 Est. Patient 17:29:05 CDT Arie mcqueen MD [facility] Procedures Code Procedure Name Date Entry Date Standard Desc ription CPT-OV Office Visit 15:30:23 CDT CPT-54699 Sono pelvis non OB uterus ovaries cervix 15:50:44 CDT CPT-13872 Hand comp min 3V 16:42:32 CDT CPT-28710 Abd compl w upright 12:17:01 CDT CPT-45847 Nexplanon Placement 15:07:39 [employer]IONAL 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FINANCE CPT-91212 Removal of IUD 15:07:39 REGIONAL 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FINANCE CPT-51107 TB Tubersol 12:09:32 CDT CPT-27292 TB Tubersol 13:55:43 CDT
--- OUTSIDE RECORDS SUMMARY | 2020-03-03 07:33 | XMS REPORT | Clinical Summary ---
Author Author Admin, Diamante Marcelo Organization [facility] Address Unknown Phone Unavailable Allergies, Adverse Reactions, [...] with depression 300.4 Active Brii Ramirez l ART PSYCHOTHERAPIST Dysthymic disorder URI 465.9 Active Jono Gangon DO Acu te upper respiratory infections of unspecified site Vaginal bleeding 623.8 Resolved Jose Zhong MD Other specified noninflammatory disorders of vagina High risk sexual behavior V69.2 Active Arie Casper MD High-risk sexual behavior GERD 530.81 Active Arie Casper MD Esophageal reflux Encounter for surveillance of implantable subdermal contraceptiv e Active Brii Petrona ART PSYCHOTHERAPIST Vaginal bleeding 623.8 Active Arie Casper MD Other specified noninflammatory disorders of vagina Influenza like illness 487.1 Active Jose Mcwilliams MD Influenza with other respiratory manifestations Sinusitis 473.9 Active Jessica Heaton ART PSYCHOTHERAPIST Unspecified sinusitis (chronic) BREAST CANCER ICD-V16.3 Inactive [...] 1 tablet daily for 4 days AZITHROMYCIN [id number] No Longer Active Flaco Rosales MD Active GUAIFENESIN DM 400-20 MG ORAL TABLET 1 pill by mouth t wice daily, if needed for cough DEXTROMETHORPHAN-GUAIFENESIN 26683821978 No Longer Active Rich Rosales MD Active TUSSIONEX PENNKINETIC ER 10-8 MG/5ML ORAL SUSPENSION E XTENDED RELEASE 5ml po q12hr PRN Cough HYDROCOD POLST-CHLORPHEN POLST 69726777999 Active Rich Rosales MD Active CEFDINIR 300 MG ORAL CAPSULE 1 po BID x 10 days CEFDINIR 01000838080 No Longer Active Waynellarlen Heaton APRN Active CHERATUSSIN AC 100-10 MG/5ML ORAL SYRUP 1 tsp by mouth every 4 hours as needed for cough GUAIFENESIN-CODEINE 39476858845 No Longe r Active Waynellarlen Heaton ART PSYCHOTHERAPIST Active TAMIFLU 75 MG ORAL CAPSULE 1 po BID x 5 days 0 OSELTAMIVIR PHOSPHATE 99432353014 No Longer Active Jose Zhong MD Activ e ZITHROMAX Z-EMIL 250 MG ORAL TABLET 2 today, then 1 daily for 4 d ays AZITHROMYCIN 63230714016 No Longer Active Arie Casper MD Active PROTONIX 40 MG ORAL TABLET DELAYED RELEASE 1 po q a.m. PANTOPRAZOLE SODIUM 80128783901 No Longer Active Arie Casper MD Active BACTRIM DS 800-160 MG ORAL TABLET 1 tab by mouth twice daily 201 05/02/30 TRIMETHOPRIM-SULFAMETHOXAZOLE 35725458789 No Longer Active R [facility] Active NEXPLANON IMPLANT right arm subcutaneously ETONOGESTREL IMPL 16629651399 No Longer Active Brii Russ APRN Active TUSSIONEX PENNKINETIC ER 10-8 MG/5ML ORAL SUSPENSION E XTENDED RELEASE 5ml po q12hr PRN Cough HYDROCOD POLST-CHLORPHEN POLST 5 4755709189 No Longer Active Brii Russ APRN Active CETIRIZINE HCL 10 MG ORAL TABLET 1 po qd PRN Allergies CETIRIZINE HCL 98599387901 No Longer Active Brii Russ APRN Activ e PREDNISONE 20 MG ORAL TABLET 2 tabs daily for 3 days, 1 tab daily for 3 days, 1/2 tab daily for 2 days PREDNISONE 30163789162 No Longer Active Arie Casper MD Active LOMOTIL 2.5-0.025 MG ORAL TABLET 1 tab po four times a day as needed for diarrhea DIPHENOXYLATE-ATROPINE 78025402965 No Lo nger Active Arie Casper MD Active ZOLOFT 50 MG ORAL TABLET 1 tablet by mouth daily 12/08 SERTRALINE HCL 46300805177 No Longer Active Arie Casper MD Ac tive NAPROXEN 500 MG ORAL TABLET Take 1 tab BID NAPR OXEN 52636172826 No Longer Active Arie Casper MD Active CEFDINIR 300 MG ORAL CAPSULE 1 po BID x 10 days CEFDINIR 55746264871 No Longer Active Brii Russ APRN Active PREDNISONE 20 MG ORAL TABLET 1 tablet daily for airway inflammat ion PREDNISONE 26007721142 No Longer Active Brii Russ APRN A ctive CEFDINIR 300 MG ORAL CAPSULE 1 po BID x 10 days CEFDINIR 03766192062 No Longer Active Jono Gagnon DO Active FLONASE 50 MCG/ACT NASAL SUSPENSION 1 spray each nostr il twice daily for allergies and runny nose until gone FLUT ICASONE PROPIONATE 81991979197 No Longer Active Jono Gagnon DO Active ALPRAZOLAM 0.25 MG ORAL TABLET 1 tablet by mouth every 8 hours as needed for stress ALPRAZOLAM 12283876338 No Longer Active Jono Gagnon DO Active ZITHROMAX Z-EMIL 250 MG ORAL TABLET 2 today, then 1 daily for 4 d ays AZITHROMYCIN 68125388553 No Longer Active Arie Casper MD Active PREDNISONE 20 MG ORAL TABLET 2 tabs daily for 3 days, 1 tab daily for 3 days, 1/2 tab daily for 2 days PREDNISONE 13548043876 No Longer Active Brii Russ APRN Active PREDNISONE 20 MG ORAL TABLET 1 tablet twice daily for 2 days, then 1 tablet once daily for 2 days PREDNISONE 95818347668 No Longer Active Brii Russ APRN Active PROMETHAZINE HCL 12.5 MG ORAL TABLET 1 tablet by mouth every 6 hours as needed for nausea/vomiting PROMETHAZINE HCL 17930230052 No L onger Active Jono Gagnon DO Active CITRATE OF MAGNESIA ORAL SOLUTION 1 bottle today for constipatio n MAGNESIUM CITRATE 49769717321 No Longer Active Jono Gagnon DO Active ZOFRAN 4 MG ORAL TABLET 1 TAB PO Q 6 HRS PRN NAUSEA 07/10/15 ONDANSETRON HCL 66889116684 No Longer Active Brii Russ APRN Acti ve LOMOTIL 2.5-0.025 MG ORAL TABLET 1 to 2 four times a day as needed for diarrhea DIPHENOXYLATE-ATROPINE 58802030088 No Longer Active January Russ APRN Active AMOXICILLIN 500 MG ORAL TABLET 2 tabs twice a day for 10 days 07/09/11 AMOXICILLIN 78294306058 No Longer Active Brii Russ APRN Active CYCLOBENZAPRINE HCL 10 MG ORAL TABLET 1/2 - 1 tablet b y mouth three times daily as needed for muscle spasm/pain CYCLOBENZAPRINE HCL 12352663118 No Longer Active Arie Casper MD Active LOMOTIL 2.5-0.025 MG ORAL TABLET 1 to 2 four times a day as needed for diarrhea DIPHENOXYLATE-ATROPINE 96453422695 No Longer Active Fozia Casper MD Active MACROBID 100 MG ORAL CAPSULE 1 cap by mouth twice daily NITROFURANTOIN MONOHYD MACRO 90266341486 No Longer Active Arie Casper MD Active ZYRTEC ALLERGY 10 MG ORAL CAPSULE 1 po qd CE TIRIZINE HCL 98725345604 No Longer Active Arie Casper MD Active AZITHROMYCIN 250 MG ORAL TABLET 2 po qd x 1 day, then 1 po q d x 4 days AZITHROMYCIN 23430929611 No Longer Active Jillarlen salgado ART PSYCHOTHERAPIST Active PREDNISONE 20 MG ORAL TABLET 2 tabs daily for 3 days, 1 tab daily for 3 days, 1/2 tab daily for 2 days PREDNISONE 09050760674 No Longer Active Jillarlen Heaton ART PSYCHOTHERAPIST Active PROMETHAZINE HCL 25 MG ORAL TABLET 1 four times a day as nee ded for vomiting PROMETHAZINE HCL 90528461759 No Longer Active Myrna Roberto MD Active BACTRIM DS 800-160 MG ORAL TABLET 1 twice a day 05/30 SULFAMETHOXAZOLE-TRIMETHOPRIM 13440131576 No Longer Active Myrna Roberto MD Active VICKS DAYQUIL SEVERE COLD/FLU TABLET 1 tab every 6 hours prn 201 02/22/17 [id number] TABS 29567117088 No Longer Active Chris Roberto MD Active GUAIFENESIN-CODEINE 100-10 MG/5ML ORAL SYRUP 2 tsp every 6 hours prn GUAIFENESIN-CODEINE 05043797904 No Longer Active Mynra Roberto MD Active NAPROXEN 500 MG ORAL TABLET one tab PO BID NAPR OXEN 78699873393 No Longer Active Myrna Roberto MD Active AUGMENTIN 875-125 MG ORAL TABLET 1 tab by mouth twice daily with food AMOXICILLIN-POT CLAVULANATE 90773303858 No Longer Act zaid Liliana Estrada MD PhD Active AMOXICILLIN 500 MG ORAL CAPSULE 1 tab by mouth 3 times daily 201 02/21/05 AMOXICILLIN 37705900321 No Longer Active Liliana Estrada MD PhD Active TESSALON PERLES 100 MG ORAL CAPSULE 1 tablet by mouth 3 times da cory BENZONATATE 61315847020 No Longer Active Liliana Estrada MD PhD Active FLAGYL 500 MG ORAL TABLET 1 tablet by mouth two times daily 2014 METRONIDAZOLE 53855497118 No Longer Active Nilam Plattida Ac tive ZITHROMAX 250 MG ORAL TABLET 2 po today, then 1 po q days 2-5 20 06/08/16 AZITHROMYCIN 57565023155 No Longer Active Arie Casper MD Active VITAMINS 0.8 MG ORAL TABLET take 1 tab po qday [id number] 28748391559 No Longer Active Arie Casper MD Active IBUPROFEN 800 MG ORAL TABLET take one po Q 8 hours 201 02/01/16 IBUPROFEN 32963306734 No Longer Active Arie Casper MD Acti ve [facility] TUSSIN COUGH/COLD CF 5-10-100 MG/5ML ORAL LIQUID 2 teasp oons every 4 hours [id number] 04077158362 No Longer Active Blaine Casper MD Active COMTREX COLD/COUGH DAY/NITE MS 5-2-10-325 MG ORAL 2 caps deja ry 4 hours [id number] 64269343570 No Longer Active Da aleksandra Casper MD Active CHLORASEPTIC MAX SORE THROAT 15-10 MG MOUTH/THROAT LOZENGE 1 every 2 hours prn BENZOCAINE-MENTHOL 67303162198 No Longer Active Arie Casper MD Active PREDNISONE 20 MG ORAL TABLET 2 tabs daily for 3 days, 1 tab daily for 3 days, 1/2 tab daily for 2 days PREDNISONE 72815670034 No Longer Active Jose Zhong MD Active AZITHROMYCIN 250 MG ORAL TABLET 2 po qd x 1 day, then 1 po q d x 4 days AZITHROMYCIN 53230498608 No Longer Active Jose Mcwilliams MD Active ZOFRAN ODT 4 MG ORAL TABLET DISINTEGRATING 1 po q6hr PRN Nausea ONDANSETRON 22280200706 No Longer Active Rich Rosales MD Active ZOFRAN 4 MG ORAL TABLET 1 tablet every 4 hours ONDANSETRON HCL 51402752990 No Longer Active Rich Rosales MD Activ e MUCINEX 600 MG ORAL TABLET EXTENDED RELEASE 12 HOUR Ta ke 1-2 tablets every 12 hours GUAIFENESIN 59563633967 No Longer Active Rich Rosales MD Active BACTRIM 400-80 MG ORAL TABLET take one po BID SULFAMETHOXAZOLE-TRIMETHOPRIM 55860657010 No Longer Active Abelardo HERNANDEZ Active AZITHROMYCIN 500 MG ORAL TABLET 1 PO q day x 6 days 20 03/02/23 AZITHROMYCIN 91115415793 No Longer Active Tin HERNANDEZ Activ e ZITHROMAX 250 MG ORAL TABLET 2 po today, then 1 po q days 2-5 20 10/03/08 AZITHROMYCIN 31997001040 No Longer Active Arie Casper MD Active ZITHROMAX 250 MG ORAL TABLET 2 po today, then 1 po q days 2-5 20 09/23/25 AZITHROMYCIN 94662159108 No Longer Active Arie Casper MD Active AMOXICILLIN 500 MG ORAL CAPSULE 1 tab by mouth 3 times daily 201 11/24/09 AMOXICILLIN 64807326897 No Longer Active Arie Casper MD Active BACTRIM DS 800-160 MG ORAL TABLET 1 tab by mouth twice daily 201 11/03/14 TRIMETHOPRIM-SULFAMETHOXAZOLE 11320103556 No Longer Active Fozia Casper MD Active AMOXICILLIN 500 MG ORAL TABLET take 1 tab po TID 08/05 AMOXICILLIN 63816650005 No Longer Active Arie Casper MD Acti ve BACTRIM DS 800-160 MG ORAL TABLET 1 tab by mouth twice daily 201 11/03/14 BACTRIM DS 800-160 MG ORAL TABLET 358729 TRIMETHOPRIM-SULFAMETHOXAZOLE Inactive MUCINEX 600 MG ORAL TABLET EXTENDED RELEASE 12 HOUR Ta ke 1-2 tablets every 12 hours MUCINEX 600 MG ORAL TABLET EXTENDED RELEA SE 12 HOUR GUAIFENESIN Inactive ZOFRAN 4 MG ORAL TABLET 1 tablet every 4 hours ZOFRAN 4 MG ORAL TABLET 296229 ONDANSETRON HCL Inactive ZOFRAN ODT 4 MG ORAL TABLET DISINTEGRATING 1 po q6hr PRN Nausea ZOFRAN ODT 4 MG ORAL TABLET DISINTEGRATING 235183 ONDAN SETRON Inactive CHLORASEPTIC MAX SORE THROAT 15-10 MG MOUTH/THROAT LOZENGE 1 every 2 hours prn CHLORASEPTIC MAX SORE THROAT 15-10 MG MOUTH/THROAT LOZENGE BENZOCAINE-MENTHOL Inactive COMTREX COLD/COUGH DAY/NITE MS 5-2-10-325 MG ORAL 2 caps deja ry 4 hours COMTREX COLD/COUGH DAY/NITE MS 5-2-10-325 MG ORA L [id number] Inactive [facility] TUSSIN COUGH/COLD CF 5-10-100 MG/5ML ORAL LIQUID 2 teasp oons every 4 hours [facility] TUSSIN COUGH/COLD CF 5-10-100 MG/5ML ORAL LI QUID [id number] Inactive IBUPROFEN 800 MG ORAL TABLET take one po Q 8 hours 201 02/01/16 IBUPROFEN 800 MG ORAL TABLET IBUPROFEN Inactive VITAMINS 0.8 MG ORAL TABLET take 1 tab po qday VITAMINS 0.8 MG ORAL TABLET [id number] E-FA Inactive TESSALON PERLES 100 MG ORAL CAPSULE 1 tablet by mouth 3 times da cory TESSALON PERLES 100 MG ORAL CAPSULE 856475 BENZONATATE Inactive AMOXICILLIN 500 MG ORAL CAPSULE 1 tab by mouth 3 times daily 201 02/21/05 AMOXICILLIN 500 MG ORAL CAPSULE 897039 AMOXICILLIN Inactive GUAIFENESIN-CODEINE 100-10 MG/5ML ORAL SYRUP 2 tsp every 6 hours prn GUAIFENESIN-CODEINE 100-10 MG/5ML ORAL SYRUP 920328 GUAIFENESIN-CODEINE Inactive VICKS DAYQUIL SEVERE COLD/FLU TABLET 1 tab every 6 hours prn 201 02/22/17 VICKS DAYQUIL SEVERE COLD/FLU TABLET PHENYLEPHRI [id number]-APAP TABS Inactive BACTRIM DS 800-160 MG ORAL TABLET 1 twice a day 05/30 BACTRIM DS 800-160 MG ORAL TABLET 350195 SULFAMETHOXAZOLE-TRIMETHOPRIM Inactiv e PROMETHAZINE HCL 25 MG ORAL TABLET 1 four times a day as nee ded for vomiting PROMETHAZINE HCL 25 MG ORAL TABLET 016097 PROMETHAZINE HCL Inactive ZYRTEC ALLERGY 10 MG ORAL CAPSULE 1 po qd ZYRTEC ALLERGY 10 MG ORAL CAPSULE CETIRIZINE HCL Inactive MACROBID 100 MG ORAL CAPSULE 1 cap by mouth twice daily MACROBID 100 MG ORAL CAPSULE 7746597 NITROFURANTOIN MONOHYD MACRO In active LOMOTIL 2.5-0.025 MG ORAL TABLET 1 to 2 four times a day as needed for diarrhea LOMOTIL 2.5-0.025 MG ORAL TABLET 7815148 DIPHENOXYLATE-ATROPINE Inactive CYCLOBENZAPRINE HCL 10 MG ORAL TABLET 1/2 - 1 tablet b y mouth three times daily as needed for muscle spasm/pain CYCLOBEN ZAPRINE HCL 10 MG ORAL TABLET 216274 CYCLOBENZAPRINE HCL Inactive AMOXICILLIN 500 MG ORAL TABLET 2 tabs twice a day for 10 days 20 07/09/11 AMOXICILLIN 500 MG ORAL TABLET 482206 AMOXICILLIN I nactive LOMOTIL 2.5-0.025 MG ORAL TABLET 1 to 2 four times a day as needed for diarrhea LOMOTIL 2.5-0.025 MG ORAL TABLET 6330107 DIPHENOXYLATE-ATROPINE Inactive ZOFRAN 4 MG ORAL TABLET 1 TAB PO Q 6 HRS PRN NAUSEA 07/10/15 ZOFRAN 4 MG ORAL TABLET 882223 ONDANSETRON HCL Inactive CITRATE OF MAGNESIA ORAL SOLUTION 1 bottle today for constipatio n CITRATE OF MAGNESIA ORAL SOLUTION 3646096 MAGNESIUM CITR ATE Inactive PROMETHAZINE HCL 12.5 MG ORAL TABLET 1 tablet by mouth every 6 hours as needed for nausea/vomiting PROMETHAZINE HCL 12.5 MG ORA L TABLET 407480 PROMETHAZINE HCL Inactive PREDNISONE 20 MG ORAL TABLET 1 tablet twice daily for 2 days, then 1 tablet once daily for 2 days PREDNISONE 20 MG ORAL TABLET 663901 PREDNISONE Inactive ALPRAZOLAM 0.25 MG ORAL TABLET 1 tablet by mouth every 8 hours as needed for stress ALPRAZOLAM 0.25 MG ORAL TABLET 279875 ALPRA ZOLAM Inactive FLONASE 50 MCG/ACT NASAL SUSPENSION 1 spray each nostr il twice daily for allergies and runny nose until gone FLON ASE 50 MCG/ACT NASAL SUSPENSION 0758203 FLUTICASONE PROPIONATE Inactive PREDNISONE 20 MG ORAL TABLET 1 tablet daily for airway inflammat ion PREDNISONE 20 MG ORAL TABLET 053675 PREDNISONE Beulah ctive NAPROXEN 500 MG ORAL TABLET Take 1 tab BID NAPROXEN 500 MG ORAL TABLET 795412 NAPROXEN Inactive ZOLOFT 50 MG ORAL TABLET 1 tablet by mouth daily 12/08 ZOLOFT 50 MG ORAL TABLET 532496 SERTRALINE HCL Inactive LOMOTIL 2.5-0.025 MG ORAL TABLET 1 tab po four times a day as needed for diarrhea LOMOTIL 2.5-0.025 MG ORAL TABLET 8724682 DIPHENOXYLATE-ATROPINE Inactive CETIRIZINE HCL 10 MG ORAL TABLET 1 po qd PRN Allergies CETIRIZINE HCL 10 MG ORAL TABLET 2475806 CETIRIZINE HCL Inactiv e TUSSIONEX PENNKINETIC ER 10-8 MG/5ML ORAL SUSPENSION E XTENDED RELEASE 5ml po q12hr PRN Cough TUSSIONEX PENNKINETI C ER 10-8 MG/5ML ORAL SUSPENSION EXTENDED RELEASE HYDROCOD POLST-CHLORPHEN POLST I nactive NEXPLANON IMPLANT right arm subcutaneously NEXPLANON IMPLANT ETONOGESTREL IMPL Inactive PROTONIX 40 MG ORAL TABLET DELAYED RELEASE 1 po q a.m. PROTONIX 40 MG ORAL TABLET DELAYED RELEASE 163632 PANTOPRAZOLE SODI UM Inactive CHERATUSSIN AC 100-10 MG/5ML ORAL SYRUP 1 tsp by mouth every 4 hours as needed for cough CHERATUSSIN AC 100-10 MG/5ML ORAL SYRUP 9 60237 GUAIFENESIN-CODEINE Inactive GUAIFENESIN DM 400-20 MG ORAL TABLET 1 pill by mouth t wice daily, if needed for cough GUAIFENESIN DM 400-20 MG ORAL TABLET 1147 685 DEXTROMETHORPHAN-GUAIFENESIN Inactive AMOXICILLIN 500 MG ORAL TABLET take 1 tab po TID 08/05 AMOXICILLIN 500 MG ORAL TABLET 935078 AMOXICILLIN Inactive AMOXICILLIN 500 MG ORAL CAPSULE 1 tab by mouth 3 times daily 201 11/24/09 AMOXICILLIN 500 MG ORAL CAPSULE 913992 AMOXICILLIN Inactive ZITHROMAX 250 MG ORAL TABLET 2 po today, then 1 po q days 2-5 20 09/23/25 ZITHROMAX 250 MG ORAL TABLET 463535 AZITHROMYCIN Arlen ctive ZITHROMAX 250 MG ORAL TABLET 2 po today, then 1 po q days 2-5 20 10/03/08 ZITHROMAX 250 MG ORAL TABLET 137227 AZITHROMYCIN Beulah ctive AZITHROMYCIN 500 MG ORAL TABLET 1 PO q day x 6 days 20 03/02/23 AZITHROMYCIN 500 MG ORAL TABLET 1759571 AZITHROMYCIN Inactive BACTRIM 400-80 MG ORAL TABLET take one po BID BACTRIM 400- 80 MG ORAL TABLET 291326 SULFAMETHOXAZOLE-TRIMETHOPRIM Inactive AZITHROMYCIN 250 MG ORAL TABLET 2 po qd x 1 day, then 1 po q d x 4 days AZITHROMYCIN 250 MG ORAL TABLET 437686 AZITHROMY ALLISON Inactive PREDNISONE 20 MG ORAL TABLET 2 tabs daily for 3 days, 1 tab daily for 3 days, 1/2 tab daily for 2 days PREDNISONE 20 MG ORAL T ABLET 831255 PREDNISONE Inactive ZITHROMAX 250 MG ORAL TABLET 2 po today, then 1 po q days 2-5 20 06/08/16 ZITHROMAX 250 MG ORAL TABLET 953575 AZITHROMYCIN Beulah ctive FLAGYL 500 MG ORAL TABLET 1 tablet by mouth two times daily 2014 FLAGYL 500 MG ORAL TABLET 656914 METRONIDAZOLE Inacti ve AUGMENTIN 875-125 MG ORAL TABLET 1 tab by mouth twice daily with food AUGMENTIN 875-125 MG ORAL TABLET 886635 AMOXICIL ELSA-POT CLAVULANATE Inactive NAPROXEN 500 MG ORAL TABLET one tab PO BID NAPROXEN 500 MG ORAL TABLET 158665 NAPROXEN Inactive PREDNISONE 20 MG ORAL TABLET 2 tabs daily for 3 days, 1 tab daily for 3 days, 1/2 tab daily for 2 days PREDNISONE 20 MG ORAL T ABLET 557418 PREDNISONE Inactive AZITHROMYCIN 250 MG ORAL TABLET 2 po qd x 1 day, then 1 po q d x 4 days AZITHROMYCIN 250 MG ORAL TABLET 198038 AZITHROMY ALLISON Inactive PREDNISONE 20 MG ORAL TABLET 2 tabs daily for 3 days, 1 tab daily for 3 days, 1/2 tab daily for 2 days PREDNISONE 20 MG ORAL T ABLET 642874 PREDNISONE Inactive ZITHROMAX Z-EMIL 250 MG ORAL TABLET 2 today, then 1 daily for 4 d ays ZITHROMAX Z-EMIL 250 MG ORAL TABLET 949016 AZITHROMYCIN Inactive CEFDINIR 300 MG ORAL CAPSULE [...] days PREDNISONE 20 MG ORAL T ABLET 660509 PREDNISONE Inactive BACTRIM DS 800-160 MG ORAL TABLET 1 tab by mouth twice daily 201 05/02/30 BACTRIM DS 800-160 MG ORAL TABLET 771579 TRIMETHOPRIM-SULFAMETHOXAZOLE Inactive ZITHROMAX Z-EMIL 250 MG ORAL TABLET 2 today, then 1 daily for 4 d ays ZITHROMAX Z-EMIL 250 MG ORAL TABLET 083607 AZITHROMYCIN Inactive TAMIFLU 75 MG ORAL CAPSULE 1 po BID x 5 days 0 TAMIFLU 75 MG ORAL CAPSULE 200649 OSELTAMIVIR PHOSPHATE Inactive CEFDINIR 300 MG ORAL CAPSULE 1 po BID x 10 days 01/03 CEFDINIR 300 MG ORAL CAPSULE 20030127 CEFDINIR Inactive ZITHROMAX Z-EMIL 250 MG TABS Take two tablets today and then 1 tablet daily for 4 days ZITHROMAX Z-EMIL 250 MG TABS 659961 AZITHROM YCIN Inactive Advance Directives Directive Description [...] 5.0-8.5 Encounters Code Encounter Date Provider Facility CPT-69883 Level 3 Est. Patient 11:49:34 GLAZE CARRIER Jessica boyd [facility] CPT-91433 Level 3 Est. Patient 14:55:50 GLAZE CARRIER Jose Zhong MD [facility] CPT-14556 Level 3 Est. Patient 10:21:41 GLAZE CARRIER Arie mcqueen MD [facility] CPT-32128 Level 3 Est. Patient 11:35:15 GLAZE CARRIER Arie mcqueen MD [facility]-03637 Level 3 Est. Patient 15:40:28 CDT Brii Are [facility] CPT-63889 Level 3 Est. Patient 16:40:36 CDT Arie mcqueen MD [facility] CPT-00983 Level 4 Est. Patient 15:29:22 GLAZE CARRIER Arie mcqueen MD [facility] CPT-92735 Level 3 Est. Patient 15:18:16 GLAZE CARRIER Jono black [facility] CPT-09859 Level 4 Est. Patient 12:08:40 GLAZE CARRIER Brii Are [facility] CPT-30035 Level 3 Est. Patient 09:24:42 CDT Brii Are [facility] CPT-27537 Level 3 Est. Patient 09:12:56 CDT Arie mcqueen MD [facility] CPT-72194 Level 3 Est. Patient 16:40:54 CDT Jose Zhong MD [facility]-62933 Level 2 Est. Patient 13:01:13 CDT Brii Are [facility] CPT-30916 Level 3 Est. Patient 11:55:30 GLAZE CARRIER Jono black [facility] CPT-28714 Level 3 Est. Patient 09:52:36 GLAZE CARRIER Brii escalante ART PSYCHOTHERAPIST [facility] CPT-58716 Level 3 Est. Patient 16:25:33 GLAZE CARRIER Rich Rosales MD [facility]-17509 Level 3 Est. Patient 20:33:55 CDT Arie mcqueen MD [facility]-65999 Level 3 Est. Patient 14:18:20 CDT Rich Rosales MD [facility]-80925 Level 4 Est. Patient 09:34:31 CDT Arie mcqueen MD [facility]-42285 Level 3 Est. Patient 09:08:55 GLAZE CARRIER Liliana vincent MD [facility]-99945 Level 3 Est. Patient 16:44:07 GLAZE CARRIER Arie mcqueen MD [facility]-99470 Level 3 Est. Patient 10:44:27 CDT Arie mcqueen MD [facility] CPT-27211 Level 3 Est. Patient 08:55:41 CDT Jose Zhong MD [facility]-27168 Level 3 Est. Patient 18:37:31 CDT Liliana vincent MD [facility]-20014 Level 3 Est. Patient 14:28:23 CDT Abelardo HERNANDEZ [facility]-66389 Level 3 Est. Patient 15:18:13 GLAZE CARRIER Arie mcqueen MD [facility]-59727 Level 3 Est. Patient 10:11:29 GLAZE CARRIER Arie mcqueen MD [facility]-15676 Level 3 Est. Patient 10:55:57 GLAZE CARRIER Jono black DO [facility] CPT-41345 Level 3 Est. Patient 17:29:05 CDT Arie mcqueen MD [facility] Procedures Code Procedure Name Date Entry Date Standard Desc ription CPT-82588 Nexplanon Removal 15:40:28 CDT CPT-95307 Sono transvag pelvis non OB uterus ovari es cervix - XRAY USE ONLY 08:58:14 GLAZE CARRIER CPT-29849 UA w micro - LAB USE ONLY 16:04:56 GLAZE CARRIER 2015 CPT-27949 Wet Prep/GEN - LAB USE ONLY 16:04:56 GLAZE CARRIER 20 08/10/29 CPT-93914 First Vx - Ix admin via ID I M or jet injects without counseling by physician 16:57:10 CDT CPT-01125 Fluzone Preservative Free Intramuscular Suspension 16:57:10 CDT CPT-J0696 Rocephin 1000 mg (Ceftriaxone) 11:49:23 CDT CPT-J1040 Depo Medrol 80 mg (Methyl Prednisolone A cetate) 11:49:23 CDT CPT-J1100 Decadron 8mg (Dexamethasone) 11:49:23 CDT 2 CPT-50150 Abx/Therapy Injection 11:49:23 CDT CPT-85861 Abx/Therapy Injection 11:49:23 CDT CPT-80954 Abd compl w upright 09:07:26 GLAZE CARRIER CPT-17138 Ear Wash 16:12:47 GLAZE CARRIER CPT-OV Office Visit 11:12:01 CDT CPT-OV Office Visit 15:30:23 CDT CPT-59620 Sono pelvis non OB uterus ovaries cervix 15:50:44 CDT CPT-05244 Hand comp min 3V 16:42:32 CDT CPT-56354 Abd compl w upright 12:17:01 CDT CPT-41719 Nexplanon Placement 15:07:39 GLAZE CARRIER CPT-11628 Removal of IUD 15:07:39 GLAZE CARRIER CPT-74541 TB Tubersol 12:09:32 CDT CPT-73541 TB Tubersol 13:55:43 CDT
--- OUTSIDE RECORDS SUMMARY | 2020-03-03 07:33 | XMS REPORT | Clinical Summary ---
Author Author Admin, Diamante Marcelo Organization [email or web address] Address Unknown Phone Unavailable Allergies, Adverse Reactions, [...] site Abdominal pain 789.00 Active Brii Larson CASHIER SUPERVISOR Abdominal pain, unspecified site Diarrhea 787.91 Resolved [...] cute pharyngitis Nausea 787.02 Active Brii Larson CASHIER SUPERVISOR Nausea alone URI 465.9 Active Jono [...] Anxiety with depression 300.4 Active Glenn Larson CASHIER SUPERVISOR Dysthymic disorder URI 465.9 Active Jono Gagnon [...] a day as needed for diarrhea DIPHENOXYLATE-ATROPINE 51370677302 No Longer Active Fozia Casper MD Active ZOLOFT 50 MG TAB 1 tablet by mouth daily SERTRA LINE HCL 44659000718 No Longer Active Arie Casper MD Active NAPROXEN 500 MG TAB Take 1 tab BID NAPROXEN 332 41326683 No Longer Active Arie Casper MD Active NEXPLANON IMPL Left arm subcutaneously ETONOGES TREL IMPL 37637573818 Active Brii Larson APRN Active CEFDINIR 300 MG CAPS 1 po BID x 10 days CEFDINI R 04508557325 No Longer Active Brii Larson APRN Active PREDNISONE 20 MG TAB 1 tablet daily for airway inflammation 2015 PREDNISONE 49459499920 No Longer Active Brii Larson APRN Active CEFDINIR 300 MG CAPS 1 po BID x 10 days CEFDINI R 36980258633 No Longer Active Jono Gagnon DO Active FLONASE 50 MCG/ACT SUSP 1 spray each nostril twice d aily for allergies and runny nose until gone FLUTICASONE PROPIONATE No Longe r Active Jono Gagnon DO Active ALPRAZOLAM 0.25 MG TAB 1 tablet by mouth every 8 hours as ne eded for stress ALPRAZOLAM 63331270406 No Longer Active Jono Gagnon DO Active ZITHROMAX Z-EMIL 250 MG TABS 2 today, then 1 daily for 4 days 201 03/31/18 AZITHROMYCIN 31686969029 No Longer Active Arie Casper MD Active PROTONIX 40 MG ORAL TBEC 1 po q a.m. PANTOPRAZO LE SODIUM 31373157427 Active Arie Casper MD Active PREDNISONE 20 MG TAB 2 tabs daily for 3 days, 1 t ab daily for 3 days, 1/2 tab daily for 2 days PREDNISONE 60228481154 No Longer Active Brii Larson APRN Active PREDNISONE 20 MG TAB 1 tablet twice daily for 2 d ays, then 1 tablet once daily for 2 days PREDNISONE 79519806453 No Longer Active Brii Larson APRN Active PROMETHAZINE HCL 12.5 MG TABS 1 tablet by mouth every 6 hours as needed for nausea/vomiting PROMETHAZINE HCL 10879212988 No Longe r Active Jono Gagnon DO Active CITRATE OF MAGNESIA ORAL SOLN 1 bottle today for constipation 20 07/10/15 MAGNESIUM CITRATE 20112318763 No Longer Active Jono Gagnon DO Active ZOFRAN 4 MG ORAL TABS 1 TAB PO Q 6 HRS PRN NAUSEA 2014 ONDANSETRON HCL 66021939488 No Longer Active Brii Larson APRN A ctive LOMOTIL 2.5-0.025 MG TAB 1 to 2 four times a day as needed f or diarrhea DIPHENOXYLATE-ATROPINE 80183079474 No Longer Active M kait Larson APRN Active AMOXICILLIN 500 MG TABS 2 tabs twice a day for 10 days AMOXICILLIN 63033941640 No Longer Active Brii Larson APRN Acti ve CYCLOBENZAPRINE HCL 10 MG TABS 1/2 - 1 tablet by mouth three times daily as needed for muscle spasm/pain CYCLOBENZAPRINE HCL 61420988597 No Longer Active Arie Casper MD Active LOMOTIL 2.5-0.025 MG TABS 1 to 2 four times a day as needed for diarrhea DIPHENOXYLATE-ATROPINE 57379717903 No Longer Active D freddy Casper MD Active MACROBID 100 MG CAP 1 cap by mouth twice daily NITROFURANTOIN MONOHYD MACRO 51451866456 No Longer Active Arie Casper MD Active ZYRTEC ALLERGY 10 MG CAPS 1 po qd CETIRIZINE HCL 79020124818 No Longer Active Arie Casper MD Active AZITHROMYCIN 250 MG TABS 2 po qd x 1 day, then 1 po qd x 4 days AZITHROMYCIN 88764161549 No Longer Active Jessica Heaton APRN Active PREDNISONE 20 MG TAB 2 tabs daily for 3 days, 1 t ab daily for 3 days, 1/2 tab daily for 2 days PREDNISONE 52462005302 No Longer Active Waynellisael Heaton APRN Active PROMETHAZINE HCL 25 MG TABS 1 four times a day as needed for vomiting PROMETHAZINE HCL 64015572473 No Longer Active Myrna Roberto MD Active BACTRIM DS 800-160 MG TABS 1 twice a day SULFAMETHOXAZOLE-TRIMETHOPRIM 52634253611 No Longer Active Myrna Roberto MD Active VICKS DAYQUIL SEVERE COLD/FLU TABS 1 tab every 6 hours prn 12/10 [id number]-APAP TABS 93035031391 No Longer Active Myrna leigh MD Active GUAIFENESIN-CODEINE 100-10 MG/5ML ORAL SYRP 2 tsp every 6 hours prn GUAIFENESIN-CODEINE 26699287234 No Longer Active Myrna Roberto MD Active NAPROXEN 500 MG TAB one tab PO BID NAPROXEN 332 28821019 No Longer Active Myrna Roberto MD Active AUGMENTIN 875-125 MG TAB 1 tab by mouth twice daily with food 20 08/12/16 AMOXICILLIN-POT CLAVULANATE 60860058312 No Longer Active Liliana Estrada MD PhD Active AMOXICILLIN 500 MG CAP 1 tab by mouth 3 times daily 08/12/16 AMOXICILLIN 48406690939 No Longer Active Liliana Estrada MD PhD Acti ve TESSALON PERLES 100 MG CAP 1 tablet by mouth 3 times daily 11/01 BENZONATATE 50901487303 No Longer Active Liliana Estrada MD PhD Active FLAGYL 500 MG TAB 1 tablet by mouth two times daily 07/11/29 METRONIDAZOLE 94087238638 No Longer Active Nilam Raida Active ZITHROMAX 250 MG TAB 2 po today, then 1 po q days 2-5 AZITHROMYCIN 48889182592 No Longer Active Arie Casper MD Acti ve VITAMINS 0.8 MG TABS take 1 tab po qday 08/08 [id number] 15684733744 No Longer Active Arie Casper MD Active IBUPROFEN 800 MG TABS take one po Q 8 hours IBU PROFEN 15728036216 No Longer Active Arie Casper MD Active [facility] TUSSIN COUGH/COLD CF 5-10-100 MG/5ML LIQD 2 teaspoons ev eliud 4 hours [id number] 33749665524 No Longer Active Blaine Casper MD Active COMTREX COLD/COUGH DAY/NITE MS 5-2-10-325 MG MISC 2 caps deja ry 4 hours [id number] 97308203686 No Longer Active Da aleksandra Casper MD Active CHLORASEPTIC MAX SORE THROAT 15-10 MG LOZG 1 every 2 hours prn 2 BENZOCAINE-MENTHOL 84275561347 No Longer Active Arie Marcelo Active PREDNISONE 20 MG TAB 2 tabs daily for 3 days, 1 t ab daily for 3 days, 1/2 tab daily for 2 days PREDNISONE 54141786686 No Longer Active Jose Zhong MD Active AZITHROMYCIN 250 MG TABS 2 po qd x 1 day, then 1 po qd x 4 days AZITHROMYCIN 84516389460 No Longer Active Jose Zhong MD Active ZOFRAN ODT 4 MG TBDP 1 po q6hr PRN Nausea ONDAN SETRON 11793350488 No Longer Active Rich Rosales MD Active ZOFRAN 4 MG TABS 1 tablet every 4 hours ONDANSE JERRELL HCL 14390763276 No Longer Active Rich Rosales MD Active MUCINEX 600 MG [id number] Take 1-2 tablets every 12 hours GUAIFENESIN 73450211028 No Longer Active Rich Rosales MD Activ e BACTRIM 400-80 MG TABS take one po BID SULFAMETHOXAZOLE-TRIMETHOPRIM 93565956815 No Longer Active Abelardo HERNANDEZ Active AZITHROMYCIN 500 MG TABS 1 PO q day x 6 days AZ ITHROMYCIN 16073406066 No Longer Active Tin HERNANDEZ Active ZITHROMAX 250 MG TAB 2 po today, then 1 po q days 2-5 AZITHROMYCIN 99888445853 No Longer Active Arie Casper MD Acti ve ZITHROMAX 250 MG TAB 2 po today, then 1 po q days 2-5 AZITHROMYCIN 86282469568 No Longer Active Arie Casper MD Acti ve AMOXICILLIN 500 MG CAP 1 tab by mouth 3 times daily 09/23/20 AMOXICILLIN 71923881428 No Longer Active Arie Casper MD Acti ve BACTRIM DS 800-160 MG TAB 1 tab by mouth twice daily 2 TRIMETHOPRIM-SULFAMETHOXAZOLE 19293720862 No Longer Active Arie Casper MD Active AMOXICILLIN 500 MG TABS take 1 tab po TID AMOXI CILLIN 17622521900 No Longer Active Arie Casper MD Active BACTRIM DS 800-160 MG TAB 1 tab by mouth twice daily 2 BACTRIM DS 800-160 MG TAB 547211 TRIMETHOPRIM-SULFAMETHOXAZOLE Inac tive MUCINEX 600 MG [id number] Take 1-2 tablets every 12 hours MUCINEX 600 MG PB52O-LAR GUAIFENESIN Inactive ZOFRAN 4 MG TABS 1 tablet every 4 hours ZOFRAN 4 MG TABS 063087 ONDANSETRON HCL Inactive ZOFRAN ODT 4 MG TBDP 1 po q6hr PRN Nausea ZOFRAN ODT 4 MG TBDP 386524 ONDANSETRON Inactive CHLORASEPTIC MAX SORE THROAT 15-10 MG LOZG 1 every 2 hours prn 2 /04/30 CHLORASEPTIC MAX SORE THROAT 15-10 MG LOZG BENZO ARINA-MENTHOL Inactive COMTREX COLD/COUGH DAY/NITE MS 5-2-10-325 MG MISC 2 caps deja ry 4 hours COMTREX COLD/COUGH DAY/NITE MS 5-2-10-325 MG MIS C [id number]-[id number]-APAP Inactive [facility] TUSSIN COUGH/COLD CF 5-10-100 MG/5ML LIQD 2 teaspoons ev eliud 4 hours [facility] TUSSIN COUGH/COLD CF 5-10-100 MG/5ML LIQD [id number] Inactive IBUPROFEN 800 MG TABS take one po Q 8 hours IBUPROFEN 800 MG TABS IBUPROFEN Inactive VITAMINS 0.8 MG TABS take 1 tab po qday 08/08 VITAMINS 0.8 MG TABS ANIVPCIP-BLH-UB-FA Inactive TESSALON PERLES 100 MG CAP 1 tablet by mouth 3 times daily 11/01 TESSALON PERLES 100 MG CAP 570366 BENZONATATE Inact zaid AMOXICILLIN 500 MG CAP 1 tab by mouth 3 times daily 08/12/16 AMOXICILLIN 500 MG CAP 453659 AMOXICILLIN Inactive GUAIFENESIN-CODEINE 100-10 MG/5ML ORAL SYRP 2 tsp every 6 hours prn GUAIFENESIN-CODEINE 100-10 MG/5ML ORAL SYRP 226972 GUAIFENESIN-CODEINE Inactive VICKS DAYQUIL SEVERE COLD/FLU TABS 1 tab every 6 hours prn 12/10 VICKS DAYQUIL SEVERE COLD/FLU TABS PHENYLEPHRINE -DM-GG-APAP TABS Inactive BACTRIM DS 800-160 MG TABS 1 twice a day BACTRIM DS 800- 160 MG TABS 093874 SULFAMETHOXAZOLE-TRIMETHOPRIM Inactive PROMETHAZINE HCL 25 MG TABS 1 four times a day as needed for vomiting PROMETHAZINE HCL 25 MG TABS 929269 PROMETHAZINE HCL Inactive ZYRTEC ALLERGY 10 MG CAPS 1 po qd ZY RTEC ALLERGY 10 MG CAPS CETIRIZINE HCL Inactive MACROBID 100 MG CAP 1 cap by mouth twice daily MACROBID 100 MG CAP 3334892 NITROFURANTOIN MONOHYD MACRO Inactive LOMOTIL 2.5-0.025 MG TABS 1 to 2 four times a day as needed for diarrhea LOMOTIL 2.5-0.025 MG TABS 1134587 DIPHENOXYLATE-A TROPINE Inactive CYCLOBENZAPRINE HCL 10 MG TABS 1/2 - 1 tablet by mouth three times daily as needed for muscle spasm/pain CYCLOBENZAP RINE HCL 10 MG TABS 828126 CYCLOBENZAPRINE HCL Inactive AMOXICILLIN 500 MG TABS 2 tabs twice a day for 10 days AMOXICILLIN 500 MG TABS 185362 AMOXICILLIN Inactive LOMOTIL 2.5-0.025 MG TAB 1 to 2 four times a day as needed f or diarrhea LOMOTIL 2.5-0.025 MG TAB 6231372 DIPHENOXYLATE-AT ROPINE Inactive ZOFRAN 4 MG ORAL TABS 1 TAB PO Q 6 HRS PRN NAUSEA 2014 ZOFRAN 4 MG ORAL TABS 322324 ONDANSETRON HCL Inactive CITRATE OF MAGNESIA ORAL SOLN 1 bottle today for constipation 20 07/10/15 CITRATE OF MAGNESIA ORAL SOLN 5767399 MAGNESIUM CITRATE Inactive PROMETHAZINE HCL 12.5 MG TABS 1 tablet by mouth every 6 hours as needed for nausea/vomiting PROMETHAZINE HCL 12.5 MG TABS 498893 PROMETHAZINE HCL Inactive PREDNISONE 20 MG TAB 1 tablet twice daily for 2 d ays, then 1 tablet once daily for 2 days PREDNISONE 20 MG TAB 096722 PREDNISONE Inac tive ALPRAZOLAM 0.25 MG TAB 1 tablet by mouth every 8 hours as ne eded for stress ALPRAZOLAM 0.25 MG TAB 656110 ALPRAZOLAM Inact zaid FLONASE 50 MCG/ACT SUSP 1 spray each nostril twice d aily for allergies and runny nose until gone FLONASE 50 MCG/ACT SUSP F LUTICASONE PROPIONATE Inactive PREDNISONE 20 MG TAB 1 tablet daily for airway inflammation 2015 PREDNISONE 20 MG TAB 434558 PREDNISONE Inactive NAPROXEN 500 MG TAB Take 1 tab BID NAPROXEN 500 MG TAB 970283 NAPROXEN Inactive ZOLOFT 50 MG TAB 1 tablet by mouth daily ZOLOFT 50 MG TAB 746756 SERTRALINE HCL Inactive LOMOTIL 2.5-0.025 MG TAB 1 tab po four times a day as needed for diarrhea LOMOTIL 2.5-0.025 MG TAB 5325903 DIPHENOXYLATE-AT ROPINE Inactive AMOXICILLIN 500 MG TABS take 1 tab po TID AMOXICILLIN 500 MG TABS 078365 AMOXICILLIN Inactive AMOXICILLIN 500 MG CAP 1 tab by mouth 3 times daily 09/23/20 AMOXICILLIN 500 MG CAP 500381 AMOXICILLIN Inactive ZITHROMAX 250 MG TAB 2 po today, then 1 po q days 2-5 ZITHROMAX 250 MG TAB 8680460 AZITHROMYCIN Inactive ZITHROMAX 250 MG TAB 2 po today, then 1 po q days 2-5 ZITHROMAX 250 MG TAB 2719708 AZITHROMYCIN Inactive AZITHROMYCIN 500 MG TABS 1 PO q day x 6 days 3 AZITHROMYCIN 500 MG TABS 4016583 AZITHROMYCIN Inactive BACTRIM 400-80 MG TABS take one po BID BA CTRIM 400-80 MG TABS 908096 SULFAMETHOXAZOLE-TRIMETHOPRIM Inactive AZITHROMYCIN 250 MG TABS 2 po qd x 1 day, then 1 po qd x 4 days AZITHROMYCIN 250 MG TABS 7956571 AZITHROMYCIN Inactiv e PREDNISONE 20 MG TAB 2 tabs daily for 3 days, 1 t ab daily for 3 days, 1/2 tab daily for 2 days PREDNISONE 20 MG TAB 168651 PREDNISON E Inactive ZITHROMAX 250 MG TAB 2 po today, then 1 po q days 2-5 ZITHROMAX 250 MG TAB 2741390 AZITHROMYCIN Inactive FLAGYL 500 MG TAB 1 tablet by mouth two times daily 07/11/29 FLAGYL 500 MG TAB 616498 METRONIDAZOLE Inactive AUGMENTIN 875-125 MG TAB 1 tab by mouth twice daily with food 20 08/12/16 AUGMENTIN 875-125 MG TAB 728634 AMOXICILLIN-POT CLAVULA ANGELO Inactive NAPROXEN 500 MG TAB one tab PO BID NAPROXEN 500 MG TAB 855081 NAPROXEN Inactive PREDNISONE 20 MG TAB 2 tabs daily for 3 days, 1 t ab daily for 3 days, 1/2 tab daily for 2 days PREDNISONE 20 MG TAB 099406 PREDNISON E Inactive AZITHROMYCIN 250 MG TABS 2 po qd x 1 day, then 1 po qd x 4 days AZITHROMYCIN 250 MG TABS 0784494 AZITHROMYCIN Inactiv e PREDNISONE 20 MG TAB 2 tabs daily for 3 days, 1 t ab daily for 3 days, 1/2 tab daily for 2 days PREDNISONE 20 MG TAB 584518 PREDNISON E Inactive ZITHROMAX Z-EMIL 250 MG TABS 2 today, then 1 daily for 4 days 201 03/31/18 ZITHROMAX Z-EMIL 250 MG TABS 0471326 AZITHROMYCIN Inac tive CEFDINIR 300 MG CAPS 1 po BID x 10 days C EFDINIR 300 MG CAPS 571325 CEFDINIR Inactive CEFDINIR 300 MG CAPS 1 po BID x 10 days C EFDINIR 300 MG CAPS 122494 CEFDINIR Inactive Advance Directives Directive Description Start [...] Panel - Chemistry sodium, serum 136 mmol/L 306-513 2714/04/26 carbon dioxide, venous blood 29.9 mmol/L 21.0-32 [...] 284 10^3/MM^3 10*3/mm3 142-424 Lab Report: Chlamydia/GC APTIMA/52986 - Lab chlamydia DNA probe NOT DETECTED NOT DETECTED Lab Report: Chlamydia/GC APTIMA/64763 - Microbiology Neisseria gonorrhoeae DNA probe NOT [...] urine, semiquantitative Negative Neg ative [facility] - Chemistry protein, [...] Negative Encounters Code Encounter Date Provider Facility CPT-75034 Level 4 Est. Patient 15:29:22 ICE CREAM VAN VENDOR Arie mcqueen MD [facility] CPT-32683 Level 3 Est. Patient 15:18:16 ICE CREAM VAN VENDOR Jono black [facility] CPT-99876 Level 4 Est. Patient 12:08:40 ICE CREAM VAN VENDOR Steve CASHIER SUPERVISOR [facility] CPT-00317 Level 3 Est. Patient 09:24:42 [facility] CPT-16179 Level 3 Est. Patient 09:12:56 CDT Arie mcqueen MD [facility]-36050 Level 3 Est. Patient 16:40:54 CDT Jose Zhong MD [facility] CPT-15431 Level 2 Est. Patient 13:01:13 CDT [facility]-91229 Level 3 Est. Patient 11:55:30 ICE CREAM VAN VENDOR Jono black [facility] CPT-29665 Level 3 Est. Patient 09:52:36 ICE CREAM VAN VENDOR Steve CASHIER SUPERVISOR [facility] CPT-60399 Level 3 Est. Patient 16:25:33 ICE CREAM VAN VENDOR Rich Rosales MD [facility] CPT-17351 Level 3 Est. Patient 20:33:55 CDT Arie mcqueen MD [facility] CPT-54049 Level 3 Est. Patient 14:18:20 CDT Rich Rosales MD [facility] CPT-00107 Level 4 Est. Patient 09:34:31 CDT Arie mcqueen MD [facility]-14974 Level 3 Est. Patient 09:08:55 ICE CREAM VAN VENDOR Liliana vincent MD PhD [facility] CPT-69673 Level 3 Est. Patient 16:44:07 ICE CREAM VAN VENDOR Arie mcqueen MD [facility] CPT-80548 Level 3 Est. Patient 10:44:27 CDT Arie mcqueen MD [facility] CPT-08684 Level 3 Est. Patient 08:55:41 CDT Jose Zhong MD [facility] CPT-08255 Level 3 Est. Patient 18:37:31 CDT Liliana vincent MD PhD [facility] CPT-09870 Level 3 Est. Patient 14:28:23 CDT Abelardo HERNANDEZ [facility] CPT-51115 Level 3 Est. Patient 15:18:13 ICE CREAM VAN VENDOR Arie mcqueen MD [facility] CPT-87430 Level 3 Est. Patient 10:11:29 ICE CREAM VAN VENDOR Arie mcqueen MD [facility] CPT-69943 Level 3 Est. Patient 10:55:57 ICE CREAM VAN VENDOR Jono black DO [facility] CPT-38769 Level 3 Est. Patient 17:29:05 CDT Arie mcqueen MD [facility] Procedures Code Procedure Name Date Entry Date Standard Desc ription CPT-96068 Sono transvag pelvis non OB uterus ovari es cervix - XRAY USE ONLY 08:58:14 ICE CREAM VAN VENDOR CPT-60150 UA w micro - LAB USE ONLY 16:04:56 ICE CREAM VAN VENDOR 2015 CPT-90047 Wet Prep/GEN - LAB USE ONLY 16:04:56 ICE CREAM VAN VENDOR 20 08/10/29 CPT-34512 First Vx - Ix admin via ID I M or jet injects without counseling by physician 16:57:10 CDT CPT-31954 Fluzone Preservative Free Intramuscular Suspension 16:57:10 CDT CPT-J0696 Rocephin 1000 mg (Ceftriaxone) 11:49:23 CDT CPT-J1040 Depo Medrol 80 mg (Methyl Prednisolone A cetate) 11:49:23 CDT CPT-J1100 Decadron 8mg (Dexamethasone) 11:49:23 CDT 2 CPT-59847 Abx/Therapy Injection 11:49:23 CDT CPT-72029 Abx/Therapy Injection 11:49:23 CDT CPT-48045 Abd compl w upright 09:07:26 ICE CREAM VAN VENDOR CPT-32445 Ear Wash 16:12:47 ICE CREAM VAN VENDOR CPT-OV Office Visit 11:12:01 CDT CPT-OV Office Visit 15:30:23 CDT CPT-12592 Sono pelvis non OB uterus ovaries cervix 15:50:44 CDT CPT-97193 Hand comp min 3V 16:42:32 CDT CPT-60071 Abd compl w upright 12:17:01 CDT CPT-61850 Nexplanon Placement 15:07:39 ICE CREAM VAN VENDOR CPT-85306 Removal of IUD 15:07:39 ICE CREAM VAN VENDOR CPT-97725 TB Tubersol 12:09:32 CDT CPT-14776 TB Tubersol 13:55:43 CDT
--- OUTSIDE RECORDS SUMMARY | 2020-03-03 07:34 | XMS REPORT | Clinical Summary ---
Author Author Admin, Diamante Marcelo Organization [employer] Address Unknown Phone Unavailable Allergies, Adverse Reactions, [...] site Abdominal pain 789.00 Active Brii Larson TILE MECHANIC HELPER Abdominal pain, unspecified site Diarrhea 787.91 Resolved [...] cute pharyngitis Nausea 787.02 Active Brii Larson TILE MECHANIC HELPER Nausea alone URI 465.9 Active Jono Gagnon DO Acu te upper respiratory infections of unspecified site Allergic rhinitis 477.9 Active Brii Larson A PRN Allergic rhinitis, cause unspecified Abdominal pain, right lower quadrant 789.03 Active Jose Zhong MD Abdominal pain, right lower quadrant Urinary frequency 788.41 Inactive Roseann Crawford Urinary frequency BREAST CANCER ICD-V16.3 Inactive Jose Sin D COLON CANCER ICD-V16.0 Inactive Jose Zhong MD DIABETES ICD-V18.0 Inactive Jose Zohng MD 201 01/29/08 ACUTE FRONTAL SINUSITIS ICD-461.1 [...] 1 po q a.m. PANTOPRAZO LE SODIUM 75443105118 Active Brii Larson APRN Active PREDNISONE 20 MG TAB 2 tabs daily for 3 days, 1 t ab daily for 3 days, 1/2 tab daily for 2 days PREDNISONE 73676214826 No Longer Active Brii Larson APRN Active PREDNISONE 20 MG TAB 1 tablet twice daily for 2 d ays, then 1 tablet once daily for 2 days PREDNISONE 26105287560 No Longer Active Brii Larson APRN Active FLONASE 50 MCG/ACT SUSP 1 spray each nostril twice d aily for allergies and runny nose until gone FLUTICASONE PROPIONATE Active Jono Gagnon DO Active PROMETHAZINE HCL 12.5 MG TABS 1 tablet by mouth every 6 hours as needed for nausea/vomiting PROMETHAZINE HCL 62209692483 No Longe r Active Jono Gagnon DO Active CITRATE OF MAGNESIA ORAL SOLN 1 bottle today for constipation 20 07/10/15 MAGNESIUM CITRATE 67637537202 No Longer Active Jono Gagnon DO Active ZOFRAN 4 MG ORAL TABS 1 TAB PO Q 6 HRS PRN NAUSEA 2014 ONDANSETRON HCL 87177250531 No Longer Active Brii Larson APRN A ctive LOMOTIL 2.5-0.025 MG TAB 1 to 2 four times a day as needed f or diarrhea DIPHENOXYLATE-ATROPINE 23801631378 No Longer Active January anguloan Neo CARBERA Active AMOXICILLIN 500 MG TABS 2 tabs twice a day for 10 days AMOXICILLIN 41579104825 No Longer Active Brii Larson APRN Acti ve NEXPLANON IMPL ETONOGESTREL IMPL 39064797206 Active Rich Rosales MD Active CYCLOBENZAPRINE HCL 10 MG TABS 1/2 - 1 tablet by mouth three times daily as needed for muscle spasm/pain CYCLOBENZAPRINE HCL 53086018897 No Longer Active Arie Casper MD Active LOMOTIL 2.5-0.025 MG TABS 1 to 2 four times a day as needed for diarrhea DIPHENOXYLATE-ATROPINE 05323149234 No Longer Active D freddy Casper MD Active MACROBID 100 MG CAP 1 cap by mouth twice daily NITROFURANTOIN MONOHYD MACRO 23180921424 No Longer Active Arie Casper MD Active ZYRTEC ALLERGY 10 MG CAPS 1 po qd CETIRIZINE HCL 05484622251 No Longer Active Arie Casper MD Active AZITHROMYCIN 250 MG TABS 2 po qd x 1 day, then 1 po qd x 4 days AZITHROMYCIN 14262227005 No Longer Active Jillina Frazelanette CABRERA Active PREDNISONE 20 MG TAB 2 tabs daily for 3 days, 1 t ab daily for 3 days, 1/2 tab daily for 2 days PREDNISONE 83579251319 No Longer Active Jillina Frazell RICK Active PROMETHAZINE HCL 25 MG TABS 1 four times a day as needed for vomiting PROMETHAZINE HCL 87050679764 No Longer Active Myrna Roberto MD Active BACTRIM DS 800-160 MG TABS 1 twice a day SULFAMETHOXAZOLE-TRIMETHOPRIM 67493294030 No Longer Active Myrna Roberto MD Active VICKS DAYQUIL SEVERE COLD/FLU TABS 1 tab every 6 hours prn 12/10 [id number] TABS 75140832785 No Longer Active Myrna leigh MD Active GUAIFENESIN-CODEINE 100-10 MG/5ML ORAL SYRP 2 tsp every 6 hours prn GUAIFENESIN-CODEINE 37188674924 No Longer Active Myrna Roberto MD Active NAPROXEN 500 MG TAB one tab PO BID NAPROXEN 332 73293852 No Longer Active Myrna Roberto MD Active AUGMENTIN 875-125 MG TAB 1 tab by mouth twice daily with food 08/12/16 AMOXICILLIN-POT CLAVULANATE 68983447513 No Longer Active Liliana Estrada MD PhD Active AMOXICILLIN 500 MG CAP 1 tab by mouth 3 times daily 08/12/16 AMOXICILLIN 81270219445 No Longer Active Liliana Estrada MD PhD Acti ve TESSALON PERLES 100 MG CAP 1 tablet by mouth 3 times daily 11/01 BENZONATATE 44156005296 No Longer Active Liliana Estrada MD PhD Active FLAGYL 500 MG TAB 1 tablet by mouth two times daily 07/11/29 METRONIDAZOLE 50317179906 No Longer Active Nilam Raida Active ZITHROMAX 250 MG TAB 2 po today, then 1 po q days 2-5 AZITHROMYCIN 98835920726 No Longer Active Arie Casper MD Acti ve VITAMINS 0.8 MG TABS take 1 tab po qday 08/08 [id number] 86725517181 No Longer Active Arie Casper MD Active IBUPROFEN 800 MG TABS take one po Q 8 hours IBU PROFEN 52179681298 No Longer Active Arie Casper MD Active [facility] TUSSIN COUGH/COLD CF 5-10-100 MG/5ML LIQD 2 teaspoons ev eliud 4 hours [id number] 06629603536 No Longer Active Blaine Casper MD Active COMTREX COLD/COUGH DAY/NITE MS 5-2-10-325 MG MISC 2 caps deja ry 4 hours [id number] 31611087470 No Longer Active Da aleksandra Casper MD Active CHLORASEPTIC MAX SORE THROAT 15-10 MG LOZG 1 every 2 hours prn 2 BENZOCAINE-MENTHOL 91526152390 No Longer Active Arie Marcelo Active PREDNISONE 20 MG TAB 2 tabs daily for 3 days, 1 t ab daily for 3 days, 1/2 tab daily for 2 days PREDNISONE 82551428761 No Longer Active Jose Zhong MD Active AZITHROMYCIN 250 MG TABS 2 po qd x 1 day, then 1 po qd x 4 days AZITHROMYCIN 77710709633 No Longer Active Jose Zhong MD Active ZOFRAN ODT 4 MG TBDP 1 po q6hr PRN Nausea ONDAN SETRON 40301455863 No Longer Active Rich Rosales MD Active ZOFRAN 4 MG TABS 1 tablet every 4 hours ONDANSE JERRELL HCL 59029304001 No Longer Active Rich Rosales MD Active MUCINEX 600 MG [id number] Take 1-2 tablets every 12 hours GUAIFENESIN 17624274674 No Longer Active Rich Rosales MD Activ e BACTRIM 400-80 MG TABS take one po BID SULFAMETHOXAZOLE-TRIMETHOPRIM 26201528093 No Longer Active Abelardo HERNANDEZ Active AZITHROMYCIN 500 MG TABS 1 PO q day x 6 days AZ ITHROMYCIN 00499285193 No Longer Active Tin HERNANDEZ Active ZITHROMAX 250 MG TAB 2 po today, then 1 po q days 2-5 AZITHROMYCIN 46291079403 No Longer Active Arie Casper MD Acti ve ZITHROMAX 250 MG TAB 2 po today, then 1 po q days 2-5 AZITHROMYCIN 22245740197 No Longer Active Arie Casper MD Acti ve AMOXICILLIN 500 MG CAP 1 tab by mouth 3 times daily 20 09/23/20 AMOXICILLIN 09067302582 No Longer Active Arie Casper MD Acti ve BACTRIM DS 800-160 MG TAB 1 tab by mouth twice daily 2 TRIMETHOPRIM-SULFAMETHOXAZOLE 29969002865 No Longer Active Arie Casper MD Active AMOXICILLIN 500 MG TABS take 1 tab po TID AMOXI CILLIN 23351043763 No Longer Active Arie Casper MD Active BACTRIM DS 800-160 MG TAB 1 tab by mouth twice daily 2 BACTRIM DS 800-160 MG TAB 043258 TRIMETHOPRIM-SULFAMETHOXAZOLE Inac tive MUCINEX 600 MG [id number] Take 1-2 tablets every 12 hours MUCINEX 600 MG [id number] GUAIFENESIN Inactive ZOFRAN 4 MG TABS 1 tablet every 4 hours ZOFRAN 4 MG TABS 868550 ONDANSETRON HCL Inactive ZOFRAN ODT 4 MG TBDP 1 po q6hr PRN Nausea ZOFRAN ODT 4 MG TBDP 826547 ONDANSETRON Inactive CHLORASEPTIC MAX SORE THROAT 15-10 MG LOZG 1 every 2 hours prn 2 /04/30 CHLORASEPTIC MAX SORE THROAT 15-10 MG LOZG BENZO ARINA-MENTHOL Inactive COMTREX COLD/COUGH DAY/NITE MS 5-2-10-325 MG MISC 2 caps deja ry 4 hours COMTREX COLD/COUGH DAY/NITE MS 5-2-10-325 MG MIS C [id number] Inactive [facility] TUSSIN COUGH/COLD CF 5-10-100 MG/5ML LIQD 2 teaspoons ev eliud 4 hours [facility] TUSSIN COUGH/COLD CF 5-10-100 MG/5ML LIQD [id number] Inactive IBUPROFEN 800 MG TABS take one po Q 8 hours IBUPROFEN 800 MG TABS 285063 IBUPROFEN Inactive VITAMINS 0.8 MG TABS take 1 tab po qday 08/08 VITAMINS 0.8 MG TABS [id number] Inactive TESSALON PERLES 100 MG CAP 1 tablet by mouth 3 times daily 11/01 TESSALON PERLES 100 MG CAP 288970 BENZONATATE Inact zaid AMOXICILLIN 500 MG CAP 1 tab by mouth 3 times daily 08/12/16 AMOXICILLIN 500 MG CAP 479207 AMOXICILLIN Inactive GUAIFENESIN-CODEINE 100-10 MG/5ML ORAL SYRP 2 tsp every 6 hours prn GUAIFENESIN-CODEINE 100-10 MG/5ML ORAL SYRP 837879 GUAIFENESIN-CODEINE Inactive VICKS DAYQUIL SEVERE COLD/FLU TABS 1 tab every 6 hours prn 12/10 VICKS DAYQUIL SEVERE COLD/FLU TABS PHENYLEPHRINE -DM-GG-APAP TABS Inactive BACTRIM DS 800-160 MG TABS 1 twice a day BACTRIM DS 800- 160 MG TABS 370801 SULFAMETHOXAZOLE-TRIMETHOPRIM Inactive PROMETHAZINE HCL 25 MG TABS 1 four times a day as needed for vomiting PROMETHAZINE HCL 25 MG TABS 761911 PROMETHAZINE HCL Inactive ZYRTEC ALLERGY 10 MG CAPS 1 po qd ZY RTEC ALLERGY 10 MG CAPS CETIRIZINE HCL Inactive MACROBID 100 MG CAP 1 cap by mouth twice daily MACROBID 100 MG CAP 6464108 NITROFURANTOIN MONOHYD MACRO Inactive LOMOTIL 2.5-0.025 MG TABS 1 to 2 four times a day as needed for diarrhea LOMOTIL 2.5-0.025 MG TABS 9265002 DIPHENOXYLATE-A TROPINE Inactive CYCLOBENZAPRINE HCL 10 MG TABS 1/2 - 1 tablet by mouth three times daily as needed for muscle spasm/pain CYCLOBENZAP RINE HCL 10 MG TABS 636263 CYCLOBENZAPRINE HCL Inactive AMOXICILLIN 500 MG TABS 2 tabs twice a day for 10 days AMOXICILLIN 500 MG TABS 965212 AMOXICILLIN Inactive LOMOTIL 2.5-0.025 MG TAB 1 to 2 four times a day as needed f or diarrhea LOMOTIL 2.5-0.025 MG TAB 6079882 DIPHENOXYLATE-AT ROPINE Inactive ZOFRAN 4 MG ORAL TABS 1 TAB PO Q 6 HRS PRN NAUSEA 2014 ZOFRAN 4 MG ORAL TABS 035501 ONDANSETRON HCL Inactive CITRATE OF MAGNESIA ORAL SOLN 1 bottle today for constipation 20 07/10/15 CITRATE OF MAGNESIA ORAL SOLN 6468477 MAGNESIUM CITRATE Inactive PROMETHAZINE HCL 12.5 MG TABS 1 tablet by mouth every 6 hours as needed for nausea/vomiting PROMETHAZINE HCL 12.5 MG TABS 544530 PROMETHAZINE HCL Inactive PREDNISONE 20 MG TAB 1 tablet twice daily for 2 d ays, then 1 tablet once daily for 2 days PREDNISONE 20 MG TAB 895820 PREDNISONE Inac tive AMOXICILLIN 500 MG TABS take 1 tab po TID AMOXICILLIN 500 MG TABS 952984 AMOXICILLIN Inactive AMOXICILLIN 500 MG CAP 1 tab by mouth 3 times daily 09/23/20 AMOXICILLIN 500 MG CAP 847910 AMOXICILLIN Inactive ZITHROMAX 250 MG TAB 2 po today, then 1 po q days 2-5 ZITHROMAX 250 MG TAB 5444466 AZITHROMYCIN Inactive ZITHROMAX 250 MG TAB 2 po today, then 1 po q days 2-5 ZITHROMAX 250 MG TAB 5603514 AZITHROMYCIN Inactive AZITHROMYCIN 500 MG TABS 1 PO q day x 6 days 3 AZITHROMYCIN 500 MG TABS 0288970 AZITHROMYCIN Inactive BACTRIM 400-80 MG TABS take one po BID BA CTRIM 400-80 MG TABS 312771 SULFAMETHOXAZOLE-TRIMETHOPRIM Inactive AZITHROMYCIN 250 MG TABS 2 po qd x 1 day, then 1 po qd x 4 days AZITHROMYCIN 250 MG TABS 8182977 AZITHROMYCIN Inactiv e PREDNISONE 20 MG TAB 2 tabs daily for 3 days, 1 t ab daily for 3 days, 1/2 tab daily for 2 days PREDNISONE 20 MG TAB 904957 PREDNISON E Inactive ZITHROMAX 250 MG TAB 2 po today, then 1 po q days 2-5 ZITHROMAX 250 MG TAB 7995713 AZITHROMYCIN Inactive FLAGYL 500 MG TAB 1 tablet by mouth two times daily 07/11/29 FLAGYL 500 MG TAB 682306 METRONIDAZOLE Inactive AUGMENTIN 875-125 MG TAB 1 tab by mouth twice daily with food 20 08/12/16 AUGMENTIN 875-125 MG TAB 764852 AMOXICILLIN-POT CLAVULA ANGELO Inactive NAPROXEN 500 MG TAB one tab PO BID NAPROXEN 500 MG TAB 196284 NAPROXEN Inactive PREDNISONE 20 MG TAB 2 tabs daily for 3 days, 1 t ab daily for 3 days, 1/2 tab daily for 2 days PREDNISONE 20 MG TAB 832937 PREDNISON E Inactive AZITHROMYCIN 250 MG TABS 2 po qd x 1 day, then 1 po qd x 4 days AZITHROMYCIN 250 MG TABS 9329402 AZITHROMYCIN Inactiv e PREDNISONE 20 MG TAB 2 tabs daily for 3 days, 1 t ab daily for 3 days, 1/2 tab daily for 2 days PREDNISONE 20 MG TAB 809950 PREDNISON E Inactive Advance Directives Directive Description [...] Panel - Chemistry sodium, serum 136 mmol/L 633-311 5262/04/26 carbon dioxide, venous blood 29.9 mmol/L 21.0-32 [...] 284 10^3/MM^3 10*3/mm3 142-424 Lab Report: Chlamydia/GC APTIMA/[id number] - Lab chlamydia DNA probe NOT DETECTED NOT DETECTED Lab Report: Chlamydia/GC APTIMA/[id number] - Microbiology Neisseria gonorrhoeae DNA probe NOT DETECTED NO T DETECTED Lab Report: Comp. Metabolic Panel - Chem istry sodium, serum 139 mmol/L 295-110 5546/12/15 carbon dioxide, venous blood 30.2 mmol/L 21.0-32 .0 potassium, serum 3.4 mmol/L 3.5-5.2 chloride, serum 101 mmol/L 98-107 blood glucose 92 mg/dL 65-110 urea nitrogen, blood 5 mg/dL 7-18 creatinine, serum 0.81 mg/dL 0.55-1.30 alanine aminotransferase (SGPT), serum 20 U/L 12-78 aspartate aminotransferase (SGOT), serum 10 U/L 15-37 calcium, serum 8.4 mg/dL 8.5-10.1 bilirubin, serum, total 0.60 mg/dL 0.00-1.00 Lab Report: HIV-1/2 Agn/Darcy/65725, HEPAT ITIS PANEL, ACUTE W/REFLE - Chemistry [...] Negative Encounters Code Encounter Date Provider Facility CPT-09537 Level 3 Est. Patient 16:40:54 CDT Jose Zhong MD [facility] CPT-86597 Level 2 Est. Patient 13:01:[address] [facility] CPT-12466 Level 3 Est. Patient 11:55:30 NETWORK PROGRAM MANAGER Jono black DO [facility] CPT-26932 Level 3 Est. Patient 09:52:36 NETWORK PROGRAM MANAGER Steve TILE MECHANIC HELPER [facility] CPT-66004 Level 3 Est. Patient 16:25:33 NETWORK PROGRAM MANAGER Rich Rosales MD [facility] CPT-69528 Level 3 Est. Patient 20:33:55 CDT Arie mcqueen MD [facility] CPT-15515 Level 3 Est. Patient 14:18:20 CDT Rich Rosales MD [facility] CPT-86969 Level 4 Est. Patient 09:34:31 CDT Arie mcqueen MD [facility] CPT-09980 Level 3 Est. Patient 09:08:55 NETWORK PROGRAM MANAGER Liliana vincent MD PhD [facility] CPT-72487 Level 3 Est. Patient 16:44:07 NETWORK PROGRAM MANAGER Arie mcqueen MD [facility] CPT-54955 Level 3 Est. Patient 10:44:27 CDT Arie mcqueen MD [facility] CPT-78307 Level 3 Est. Patient 08:55:41 CDT Jose Zhong MD [facility] CPT-77728 Level 3 Est. Patient 18:37:31 CDT Liliana vincent MD PhD [facility] CPT-16711 Level 3 Est. Patient 14:28:23 CDT Abelardo HERNANDEZ [facility] CPT-63375 Level 3 Est. Patient 15:18:13 NETWORK PROGRAM MANAGER Arie mcqueen MD [facility] CPT-05743 Level 3 Est. Patient 10:11:29 NETWORK PROGRAM MANAGER Arie mcqueen MD [facility] CPT-47048 Level 3 Est. Patient 10:55:57 NETWORK PROGRAM MANAGER Jono black DO [facility] CPT-47653 Level 3 Est. Patient 17:29:05 CDT Arie mcqueen MD [facility] Procedures Code Procedure Name Date Entry Date Standard Desc ription CPT-89614 Abd compl w upright 09:07:26 NETWORK PROGRAM MANAGER CPT-85121 Ear Wash 16:12:47 NETWORK PROGRAM MANAGER CPT-OV Office Visit 11:12:01 CDT CPT-OV Office Visit 15:30:23 CDT CPT-86722 Sono pelvis non OB uterus ovaries cervix 15:50:44 CDT CPT-89598 Hand comp min 3V 16:42:32 CDT CPT-25191 Abd compl w upright 12:17:01 CDT CPT-56788 Nexplanon Placement 15:07:39 NETWORK PROGRAM MANAGER CPT-49979 Removal of IUD 15:07:39 NETWORK PROGRAM MANAGER CPT-98392 TB Tubersol 12:09:32 CDT CPT-37415 TB Tubersol 13:55:43 CDT
--- OUTSIDE RECORDS SUMMARY | 2020-03-03 07:34 | XMS REPORT | Clinical Summary ---
Author Author Admin, Diamante Marcelo Organization [facility] Address Unknown Phone Unavailable Allergies, Adverse Reactions, Alerts Allergy Name Reaction Description Start Date Severity Status Pr ovider DILAUDID Severe Active Brii Larson APRN Conditions or Problems Problem Name Problem Code Onset Date Status Entry Date Provider Comment Standard Description Annotate FH BREAST CANCER V16.3 Resolved Jose Zhong MD Family history of malignant neoplasm of breast FH COLON CANCER V16.0 Resolved oJse Zhong MD Family history of [...] cute pharyngitis Nausea 787.02 Active Brii Larson PLANT QUALITY MANAGER Nausea alone BREAST CANCER ICD-V16.3 Inactive Jose [...] 6 HRS PRN NAUSEA 2014 ONDANSETRON HCL 90941258341 No Longer Active Brii Larson APRN A ctive LOMOTIL 2.5-0.025 MG TAB 1 to 2 four times a day as needed f or diarrhea DIPHENOXYLATE-ATROPINE 48135352342 No Longer Active January carballo Neo CABRERA Active CITRATE OF MAGNESIA ORAL SOLN 1 bottle today for constipation 10/07 MAGNESIUM CITRATE 62494382730 Active Brii Larson APRN Act zaid PROMETHAZINE HCL 12.5 MG TABS 1 tablet by mouth every 6 hours as needed for nausea/vomiting PROMETHAZINE HCL 49794448908 Active Me lobito Larson PLANT QUALITY MANAGER Active AMOXICILLIN 500 MG TABS 2 tabs twice a day for 10 days AMOXICILLIN 51439245456 No Longer Active Briiarnaldo Larson APRN Acti ve NEXPLANON IMPL ETONOGESTREL IMPL 44928293074 Active Rich Rosales MD Active CYCLOBENZAPRINE HCL 10 MG TABS 1/2 - 1 tablet by mouth three times daily as needed for muscle spasm/pain CYCLOBENZAPRINE HCL 24811782356 No Longer Active Arie Casper MD Active LOMOTIL 2.5-0.025 MG TABS 1 to 2 four times a day as needed for diarrhea DIPHENOXYLATE-ATROPINE 65748062011 No Longer Active Fozia Casper MD Active MACROBID 100 MG CAP 1 cap by mouth twice daily NITROFURANTOIN MONOHYD MACRO 52998097848 No Longer Active Arie Casper MD Active ZYRTEC ALLERGY 10 MG CAPS 1 po qd CETIRIZINE HCL 13432266959 No Longer Active Arie Casper MD Active AZITHROMYCIN 250 MG TABS 2 po qd x 1 day, then 1 po qd x 4 days AZITHROMYCIN 90378842382 No Longer Active Jillina Florina PLANT QUAL[employer] MANAGER Active PREDNISONE 20 MG TAB 2 tabs daily for 3 days, 1 t ab daily for 3 days, 1/2 tab daily for 2 days PREDNISONE 01173273551 No Longer Active Jillina Franaomi PLANT QUALITY MANAGER Active PROMETHAZINE HCL 25 MG TABS 1 four times a day as needed for vomiting PROMETHAZINE HCL 58685340340 No Longer Active Myrna Roberto MD Active BACTRIM DS 800-160 MG TABS 1 twice a day SULFAMETHOXAZOLE-TRIMETHOPRIM 26246509763 No Longer Active Myrna Roberto MD Active VICKS DAYQUIL SEVERE COLD/FLU TABS 1 tab every 6 hours prn 12/10 [id number] TABS 69841405483 No Longer Active Myrna leigh MD Active GUAIFENESIN-CODEINE 100-10 MG/5ML ORAL SYRP 2 tsp every 6 hours prn GUAIFENESIN-CODEINE 34685970046 No Longer Active Myrna Roberto MD Active NAPROXEN 500 MG TAB one tab PO BID NAPROXEN 332 37946274 No Longer Active Myrna Roberto MD Active AUGMENTIN 875-125 MG TAB 1 tab by mouth twice daily with food 08/12/16 AMOXICILLIN-POT CLAVULANATE 33953644654 No Longer Active Liliana Estrada MD PhD Active AMOXICILLIN 500 MG CAP 1 tab by mouth 3 times daily 08/12/16 AMOXICILLIN 74036350774 No Longer Active Liliana Estrada MD PhD Acti ve TESSALON PERLES 100 MG CAP 1 tablet by mouth 3 times daily 11/01 BENZONATATE 88983900695 No Longer Active Liliana Estrada MD PhD Active FLAGYL 500 MG TAB 1 tablet by mouth two times daily 20 07/11/29 METRONIDAZOLE 39653735004 No Longer Active Nilam Weber Active ZITHROMAX 250 MG TAB 2 po today, then 1 po q days 2-5 AZITHROMYCIN 00480598526 No Longer Active Arie Casper MD Acti ve VITAMINS 0.8 MG TABS take 1 tab po qday 08/08 [id number] 67216638915 No Longer Active Arie Casper MD Active IBUPROFEN 800 MG TABS take one po Q 8 hours IBU PROFEN 33791864611 No Longer Active Arie Casper MD Active [facility] TUSSIN COUGH/COLD CF 5-10-100 MG/5ML LIQD 2 teaspoons ev eliud 4 hours [id number] 93375771918 No Longer Active Blaine Casper MD Active COMTREX COLD/COUGH DAY/NITE MS 5-2-10-325 MG MISC 2 caps deja ry 4 hours [id number] 64150514126 No Longer Active Da aleksandra Casper MD Active CHLORASEPTIC MAX SORE THROAT 15-10 MG LOZG 1 every 2 hours prn 2 BENZOCAINE-MENTHOL 81288037460 No Longer Active Arie Marcelo Active PREDNISONE 20 MG TAB 2 tabs daily for 3 days, 1 t ab daily for 3 days, 1/2 tab daily for 2 days PREDNISONE 67737244737 No Longer Active Jose Zhong MD Active AZITHROMYCIN 250 MG TABS 2 po qd x 1 day, then 1 po qd x 4 days AZITHROMYCIN 14718159214 No Longer Active Jose Zhong MD Active ZOFRAN ODT 4 MG TBDP 1 po q6hr PRN Nausea ONDAN SETRON 54110273278 No Longer Active Rich Rosales MD Active ZOFRAN 4 MG TABS 1 tablet every 4 hours ONDAWANDY ALLAN HCL 52911305871 No Longer Active Rich Rosales MD Active MUCINEX 600 MG [id number] Take 1-2 tablets every 12 hours GUAIFENESIN 25707458785 No Longer Active Rich Rosales MD Activ e BACTRIM 400-80 MG TABS take one po BID SULFAMETHOXAZOLE-TRIMETHOPRIM 48385394816 No Longer Active Abelardo HERNANDEZ Active AZITHROMYCIN 500 MG TABS 1 PO q day x 6 days AZ ITHROMYCIN 96484524604 No Longer Active Tin HERNANDEZ Active ZITHROMAX 250 MG TAB 2 po today, then 1 po q days 2-5 AZITHROMYCIN 33139835909 No Longer Active Arie Casper MD Acti ve ZITHROMAX 250 MG TAB 2 po today, then 1 po q days 2-5 AZITHROMYCIN 38576826809 No Longer Active Arie Casper MD Acti ve AMOXICILLIN 500 MG CAP 1 tab by mouth 3 times daily 09/23/20 AMOXICILLIN 43227977321 No Longer Active Arie Casper MD Acti ve BACTRIM DS 800-160 MG TAB 1 tab by mouth twice daily 2 TRIMETHOPRIM-SULFAMETHOXAZOLE 47284832220 No Longer Active Arie Casper MD Active AMOXICILLIN 500 MG TABS take 1 tab po TID AMOXI CILLIN 09835183581 No Longer Active Arie Casper MD Active BACTRIM DS 800-160 MG TAB 1 tab by mouth twice daily 2 BACTRIM DS 800-160 MG TAB 214324 TRIMETHOPRIM-SULFAMETHOXAZOLE Inac tive MUCINEX 600 MG [id number] Take 1-2 tablets every 12 hours MUCINEX 600 MG [id number] GUAIFENESIN Inactive ZOFRAN 4 MG TABS 1 tablet every 4 hours ZOFRAN 4 MG TABS 437310 ONDANSETRON HCL Inactive ZOFRAN ODT 4 MG TBDP 1 po q6hr PRN Nausea ZOFRAN ODT 4 MG TBDP 523957 ONDANSETRON Inactive CHLORASEPTIC MAX SORE THROAT 15-10 MG LOZG 1 every 2 hours prn 2 /04/30 CHLORASEPTIC MAX SORE THROAT 15-10 MG LOZG BENZO ARINA-MENTHOL Inactive COMTREX COLD/COUGH DAY/NITE MS 5-2-10-325 MG MISC 2 caps deja ry 4 hours COMTREX COLD/COUGH DAY/NITE MS 5-2-10-325 MG MIS C [id number] Inactive [facility] TUSSIN COUGH/COLD CF 5-10-100 MG/5ML LIQD 2 teaspoons ev eliud 4 hours [facility] TUSSIN COUGH/COLD CF 5-10-100 MG/5ML LIQD [id number] Inactive IBUPROFEN 800 MG TABS take one po Q 8 hours IBUPROFEN 800 MG TABS IBUPROFEN Inactive VITAMINS 0.8 MG TABS take 1 tab po qday 08/08 VITAMINS 0.8 MG TABS [id number] Inactive TESSALON PERLES 100 MG CAP 1 tablet by mouth 3 times daily 11/01 TESSALON PERLES 100 MG CAP 485079 BENZONATATE Inact zaid AMOXICILLIN 500 MG CAP 1 tab by mouth 3 times daily 08/12/16 AMOXICILLIN 500 MG CAP 269646 AMOXICILLIN Inactive GUAIFENESIN-CODEINE 100-10 MG/5ML ORAL SYRP 2 tsp every 6 hours prn GUAIFENESIN-CODEINE 100-10 MG/5ML ORAL SYRP 236661 GUAIFENESIN-CODEINE Inactive VICKS DAYQUIL SEVERE COLD/FLU TABS 1 tab every 6 hours prn 12/10 VICKS DAYQUIL SEVERE COLD/FLU TABS PHENYLEPHRINE -DM-GG-APAP TABS Inactive BACTRIM DS 800-160 MG TABS 1 twice a day BACTRIM DS 800- 160 MG TABS 444701 SULFAMETHOXAZOLE-TRIMETHOPRIM Inactive PROMETHAZINE HCL 25 MG TABS 1 four times a day as needed for vomiting PROMETHAZINE HCL 25 MG TABS 441094 PROMETHAZINE HCL Inactive ZYRTEC ALLERGY 10 MG CAPS 1 po qd ZY RTEC ALLERGY 10 MG CAPS CETIRIZINE HCL Inactive MACROBID 100 MG CAP 1 cap by mouth twice daily MACROBID 100 MG CAP 7847382 NITROFURANTOIN MONOHYD MACRO Inactive LOMOTIL 2.5-0.025 MG TABS 1 to 2 four times a day as needed for diarrhea LOMOTIL 2.5-0.025 MG TABS 3223365 DIPHENOXYLATE-A TROPINE Inactive CYCLOBENZAPRINE HCL 10 MG TABS 1/2 - 1 tablet by mouth three times daily as needed for muscle spasm/pain CYCLOBENZAP RINE HCL 10 MG TABS 716366 CYCLOBENZAPRINE HCL Inactive AMOXICILLIN 500 MG TABS 2 tabs twice a day for 10 days AMOXICILLIN 500 MG TABS 502992 AMOXICILLIN Inactive LOMOTIL 2.5-0.025 MG TAB 1 to 2 four times a day as needed f or diarrhea LOMOTIL 2.5-0.025 MG TAB 4577305 DIPHENOXYLATE-AT ROPINE Inactive ZOFRAN 4 MG ORAL TABS 1 TAB PO Q 6 HRS PRN NAUSEA 2014 ZOFRAN 4 MG ORAL TABS 700149 ONDANSETRON HCL Inactive AMOXICILLIN 500 MG TABS take 1 tab po TID AMOXICILLIN 500 MG TABS 096420 AMOXICILLIN Inactive AMOXICILLIN 500 MG CAP 1 tab by mouth 3 times daily 09/23/20 AMOXICILLIN 500 MG CAP 044452 AMOXICILLIN Inactive ZITHROMAX 250 MG TAB 2 po today, then 1 po q days 2-5 ZITHROMAX 250 MG TAB 9996486 AZITHROMYCIN Inactive ZITHROMAX 250 MG TAB 2 po today, then 1 po q days 2-5 ZITHROMAX 250 MG TAB 2805307 AZITHROMYCIN Inactive AZITHROMYCIN 500 MG TABS 1 PO q day x 6 days 3 AZITHROMYCIN 500 MG TABS 7938818 AZITHROMYCIN Inactive BACTRIM 400-80 MG TABS take one po BID BA CTRIM 400-80 MG TABS 649544 SULFAMETHOXAZOLE-TRIMETHOPRIM Inactive AZITHROMYCIN 250 MG TABS 2 po qd x 1 day, then 1 po qd x 4 days AZITHROMYCIN 250 MG TABS 3593419 AZITHROMYCIN Inactiv e PREDNISONE 20 MG TAB 2 tabs daily for 3 days, 1 t ab daily for 3 days, 1/2 tab daily for 2 days PREDNISONE 20 MG TAB 312027 PREDNISON E Inactive ZITHROMAX 250 MG TAB 2 po today, then 1 po q days 2-5 ZITHROMAX 250 MG TAB 6773472 AZITHROMYCIN Inactive FLAGYL 500 MG TAB 1 tablet by mouth two times daily 07/11/29 FLAGYL 500 MG TAB 349453 METRONIDAZOLE Inactive AUGMENTIN 875-125 MG TAB 1 tab by mouth twice daily with food 20 08/12/16 AUGMENTIN 875-125 MG TAB 473647 AMOXICILLIN-POT CLAVULA ANGELO Inactive NAPROXEN 500 MG TAB one tab PO BID NAPROXEN 500 MG TAB 615880 NAPROXEN Inactive PREDNISONE 20 MG TAB 2 tabs daily for 3 days, 1 t ab daily for 3 days, 1/2 tab daily for 2 days PREDNISONE 20 MG TAB 335819 PREDNISON E Inactive AZITHROMYCIN 250 MG TABS 2 po qd x 1 day, then 1 po qd x 4 days AZITHROMYCIN 250 MG TABS 5856031 AZITHROMYCIN Inactiv e Advance Directives Directive Description [...] 0 mm Lab Report: CBC - Hematology platelet count 277 10^3/MM^3 10*3/mm3 587-148 1547/09/16 leukocyte count, blood 10.1 10^3/MM^3 10*3/mm3 4.6-10.2 erythrocyte (RBC) count 4.69 10^6/MM^3 10*6/mm3 4.04-5.4 8 hemoglobin, blood 12.9 g/dL 12.0-16.0 hematocrit, blood 38.7 % 36.0-46.0 mean corpuscular volume, RBC 83 fL 80-97 mean corpuscular hemoglobin, RBC 27.6 pg 27. 0-31.2 mean corpuscular hemoglobin concentration, RBC 33.4 G/DL % 31.8-35.4 red blood cell distribution width 13.9 % 11 .6-14.8 Lab Report: CBC W/DIFF - Hematology leukocyte [...] 11 .6-14.8 platelet count 214 10^3/MM^3 10*3/mm3 761-933 0634/12/15 leukocyte count, blood 8.4 10^3/MM^3 10*3/mm3 4.6-10.2 [...] 276 10^3/MM^3 10*3/mm3 142-424 Lab Report: Chlamydia/GC APTIMA/81345 - Lab chlamydia DNA probe NOT DETECTED NOT DETECTED Lab Report: Chlamydia/GC APTIMA/81480 - Microbiology Neisseria gonorrhoeae DNA probe NOT DETECTED NO T DETECTED Lab Report: Comp. Metabolic Panel - Chem istry sodium, serum 139 mmol/L 322-383 5600/12/15 carbon dioxide, venous blood 30.2 mmol/L 21.0-32 .0 potassium, serum 3.4 mmol/L 3.5-5.2 chloride, serum 101 mmol/L 98-107 blood glucose 92 mg/dL 65-110 urea nitrogen, blood 5 mg/dL 7-18 creatinine, serum 0.81 mg/dL 0.55-1.30 alanine aminotransferase (SGPT), serum 20 U/L 12-78 aspartate aminotransferase (SGOT), serum 10 U/L 15-37 calcium, serum 8.4 mg/dL 8.5-10.1 bilirubin, serum, total 0.60 mg/dL 0.00-1.00 Lab Report: HIV-1/2 Agn/Darcy/33551, HEPAT ITIS PANEL, ACUTE W/REFLE - Chemistry [...] 5.0-8.5 Encounters Code Encounter Date Provider Facility CPT-41287 Level 3 Est. Patient 09:52:36 HVAC MECHANICAL ENGINEER Steve CABRERA [facility] CPT-34255 Level 3 Est. Patient 16:25:33 HVAC MECHANICAL ENGINEER Rich Rosales MD [facility] CPT-45429 Level 3 Est. Patient 20:33:55 CDT Arie mcqueen MD [facility] CPT-97761 Level 3 Est. Patient 14:18:20 CDT Rich Rosales MD [facility] CPT-20655 Level 4 Est. Patient 09:34:31 CDT Arie mcqueen MD [facility] CPT-97920 Level 3 Est. Patient 09:08:55 HVAC MECHANICAL ENGINEER Liliana vincent MD PhD [facility] CPT-56813 Level 3 Est. Patient 16:44:07 HVAC MECHANICAL ENGINEER Arie mcqueen MD [facility] CPT-57608 Level 3 Est. Patient 10:44:27 CDT Arie mcqueen MD [facility] CPT-08963 Level 3 Est. Patient 08:55:41 CDT Jose Zhong MD [facility] CPT-87987 Level 3 Est. Patient 18:37:31 CDT Liliana vincent MD PhD [facility] CPT-65134 Level 3 Est. Patient 14:28:23 CDT Abelardo HERNANDEZ [facility] CPT-41370 Level 3 Est. Patient 15:18:13 HVAC MECHANICAL ENGINEER Arie mcqueen MD [facility] CPT-34999 Level 3 Est. Patient 10:11:29 HVAC MECHANICAL ENGINEER Arie mcqueen MD [facility] CPT-99018 Level 3 Est. Patient 10:55:57 HVAC MECHANICAL ENGINEER Jono black DO [facility] CPT-25939 Level 3 Est. Patient 17:29:05 CDT Arie mcqueen MD [facility] Procedures Code Procedure Name Date Entry Date Standard Desc ription CPT-32181 Abd compl w upright 09:07:26 HVAC MECHANICAL ENGINEER CPT-63261 Ear Wash 16:12:47 HVAC MECHANICAL ENGINEER CPT-OV Office Visit 11:12:01 CDT CPT-OV Office Visit 15:30:23 CDT CPT-23814 Sono pelvis non OB uterus ovaries cervix 15:50:44 CDT CPT-52058 Hand comp min 3V 16:42:32 CDT CPT-80488 Abd compl w upright 12:17:01 CDT CPT-81536 Nexplanon Placement 15:07:39 HVAC MECHANICAL ENGINEER CPT-96763 Removal of IUD 15:07:39 HVAC MECHANICAL ENGINEER CPT-64612 TB Tubersol 12:09:32 CDT CPT-50175 TB Tubersol 13:55:43 CDT
--- OUTSIDE RECORDS SUMMARY | 2020-03-03 07:34 | XMS REPORT | Clinical Summary ---
Author Author Admin, Diamante Marcelo Organization [employer] Address Unknown Phone Unavailable Allergies, Adverse Reactions, [...] implantable subdermal contraceptiv e Active Brii Russ SURVEILLANCE MONITOR Vaginal bleeding 623.8 Active Arie Casper MD Other specified noninflammatory disorders of vagina Influenza like illness 487.1 Active Jose Mcwilliams MD Influenza with other respiratory manifestations Sinusitis 473.9 Active Jessica Heaton SURVEILLANCE MONITOR Unspecified sinusitis (chronic) BREAST CANCER ICD-V16.3 Inactive [...] 1 tablet daily for 4 days AZITHROMYCIN 85164139044 Active Rich Marcelo Active GUAIFENESIN DM 400-20 MG ORAL TABLET 1 pill by mouth t wice daily, if needed for cough DEXTROMETHORPHAN-GUAIFENESIN 24567818672 No Longer Active Rich Rosales MD Active TUSSIONEX PENNKINETIC ER 10-8 MG/5ML ORAL SUSPENSION E XTENDED RELEASE 5ml po q12hr PRN Cough HYDROCOD POLST-CHLORPHEN POLST 02069687558 Active Rich Rosales MD Active CEFDINIR 300 MG ORAL CAPSULE 1 po BID x 10 days CEFDINIR 58555286103 No Longer Active Jillina Florina SURVEILLANCE MONITOR Active CHERATUSSIN AC 100-10 MG/5ML ORAL SYRUP 1 tsp by mouth every 4 hours as needed for cough GUAIFENESIN-CODEINE 51177481841 No Longe r Active Jillina Fradeepl SURVEILLANCE MONITOR Active TAMIFLU 75 MG ORAL CAPSULE 1 po BID x 5 days 0 OSELTAMIVIR PHOSPHATE 74886799658 No Longer Active Jose Zhong MD Activ e ZITHROMAX Z-EMIL 250 MG ORAL TABLET 2 today, then 1 daily for 4 d ays AZITHROMYCIN 56264040292 No Longer Active Arie Casper MD Active PROTONIX 40 MG ORAL TABLET DELAYED RELEASE 1 po q a.m. PANTOPRAZOLE SODIUM 34483938213 No Longer Active Arie Casper MD Active BACTRIM DS 800-160 MG ORAL TABLET 1 tab by mouth twice daily 201 05/02/30 TRIMETHOPRIM-SULFAMETHOXAZOLE 82657865213 No Longer Active R [facility] Active NEXPLANON IMPLANT right arm subcutaneously ETONOGESTREL IMPL 37001535106 No Longer Active Brii Russ APRN Active TUSSIONEX PENNKINETIC ER 10-8 MG/5ML ORAL SUSPENSION E XTENDED RELEASE 5ml po q12hr PRN Cough HYDROCOD POLST-CHLORPHEN POLST 5 7093546082 No Longer Active Brii Russ APRN Active CETIRIZINE HCL 10 MG ORAL TABLET 1 po qd PRN Allergies CETIRIZINE HCL 74511224059 No Longer Active Brii Russ APRN Activ e PREDNISONE 20 MG ORAL TABLET 2 tabs daily for 3 days, 1 tab daily for 3 days, 1/2 tab daily for 2 days PREDNISONE 62005143852 No Longer Active Arie Casper MD Active LOMOTIL 2.5-0.025 MG ORAL TABLET 1 tab po four times a day as needed for diarrhea DIPHENOXYLATE-ATROPINE 00063158911 No Lo nger Active Arie Casper MD Active ZOLOFT 50 MG ORAL TABLET 1 tablet by mouth daily 12/08 SERTRALINE HCL 74623170953 No Longer Active Arie Casper MD Ac tive NAPROXEN 500 MG ORAL TABLET Take 1 tab BID NAPR OXEN 71637906814 No Longer Active Arie Casper MD Active CEFDINIR 300 MG ORAL CAPSULE 1 po BID x 10 days CEFDINIR 45126303455 No Longer Active Brii Russ APRN Active PREDNISONE 20 MG ORAL TABLET 1 tablet daily for airway inflammat ion PREDNISONE 52462013906 No Longer Active Brii Russ APRN A ctive CEFDINIR 300 MG ORAL CAPSULE 1 po BID x 10 days CEFDINIR 60430823386 No Longer Active Jono Gagnon DO Active FLONASE 50 MCG/ACT NASAL SUSPENSION 1 spray each nostr il twice daily for allergies and runny nose until gone FLUT ICASONE PROPIONATE 84598800400 No Longer Active Jono Gagnon DO Active ALPRAZOLAM 0.25 MG ORAL TABLET 1 tablet by mouth every 8 hours as needed for stress ALPRAZOLAM 49551469952 No Longer Active Jono Gagnon DO Active ZITHROMAX Z-EMIL 250 MG ORAL TABLET 2 today, then 1 daily for 4 d ays AZITHROMYCIN 96630912683 No Longer Active Arie Casper MD Active PREDNISONE 20 MG ORAL TABLET 2 tabs daily for 3 days, 1 tab daily for 3 days, 1/2 tab daily for 2 days PREDNISONE 13590833888 No Longer Active Brii Russ APRN Active PREDNISONE 20 MG ORAL TABLET 1 tablet twice daily for 2 days, then 1 tablet once daily for 2 days PREDNISONE 63610234787 No Longer Active Brii Russ APRN Active PROMETHAZINE HCL 12.5 MG ORAL TABLET 1 tablet by mouth every 6 hours as needed for nausea/vomiting PROMETHAZINE HCL 69460761982 No L onger Active Jono Gagnon DO Active CITRATE OF MAGNESIA ORAL SOLUTION 1 bottle today for constipatio n MAGNESIUM CITRATE 96931283218 No Longer Active Jono Gagnon DO Active ZOFRAN 4 MG ORAL TABLET 1 TAB PO Q 6 HRS PRN NAUSEA 07/10/15 ONDANSETRON HCL 72756199979 No Longer Active Brii Russ APRN Acti ve LOMOTIL 2.5-0.025 MG ORAL TABLET 1 to 2 four times a day as needed for diarrhea DIPHENOXYLATE-ATROPINE 15088857846 No Longer Active January Russ APRN Active AMOXICILLIN 500 MG ORAL TABLET 2 tabs twice a day for 10 days 20 07/09/11 AMOXICILLIN 15098003681 No Longer Active Brii Russ APRN Active CYCLOBENZAPRINE HCL 10 MG ORAL TABLET 1/2 - 1 tablet b y mouth three times daily as needed for muscle spasm/pain CYCLOBENZAPRINE HCL 96952210280 No Longer Active Arie Casper MD Active LOMOTIL 2.5-0.025 MG ORAL TABLET 1 to 2 four times a day as needed for diarrhea DIPHENOXYLATE-ATROPINE 81530839651 No Longer Active Fozia Casper MD Active MACROBID 100 MG ORAL CAPSULE 1 cap by mouth twice daily NITROFURANTOIN MONOHYD MACRO 94637641492 No Longer Active Arie Casper MD Active ZYRTEC ALLERGY 10 MG ORAL CAPSULE 1 po qd CE TIRIZINE HCL 49582497998 No Longer Active Arie Casper MD Active AZITHROMYCIN 250 MG ORAL TABLET 2 po qd x 1 day, then 1 po q d x 4 days AZITHROMYCIN 87503730414 No Longer Active Jillina Fra naomi SURVEILLANCE MONITOR Active PREDNISONE 20 MG ORAL TABLET 2 tabs daily for 3 days, 1 tab daily for 3 days, 1/2 tab daily for 2 days PREDNISONE 11946249121 No Longer Active Jillina Florina SURVEILLANCE MONITOR Active PROMETHAZINE HCL 25 MG ORAL TABLET 1 four times a day as nee ded for vomiting PROMETHAZINE HCL 61682495685 No Longer Active Myrna Roberto MD Active BACTRIM DS 800-160 MG ORAL TABLET 1 twice a day 05/30 SULFAMETHOXAZOLE-TRIMETHOPRIM 65653458793 No Longer Active Myrna Roberto MD Active VICKS DAYQUIL SEVERE COLD/FLU TABLET 1 tab every 6 hours prn 201 02/22/17 [id number] TABS 78805941117 No Longer Active Chris Roberto MD Active GUAIFENESIN-CODEINE 100-10 MG/5ML ORAL SYRUP 2 tsp every 6 hours prn GUAIFENESIN-CODEINE 37521675656 No Longer Active Myrna Roberto MD Active NAPROXEN 500 MG ORAL TABLET one tab PO BID NAPR OXEN 50005974141 No Longer Active Myrna Roberto MD Active AUGMENTIN 875-125 MG ORAL TABLET 1 tab by mouth twice daily with food AMOXICILLIN-POT CLAVULANATE 67395683008 No Longer Act zaid Liliana Estrada MD PhD Active AMOXICILLIN 500 MG ORAL CAPSULE 1 tab by mouth 3 times daily 201 02/21/05 AMOXICILLIN 00880106981 No Longer Active Liliana Estrada MD PhD Active TESSALON PERLES 100 MG ORAL CAPSULE 1 tablet by mouth 3 times da cory BENZONATATE 20733847456 No Longer Active Liliana Estrada MD PhD Active FLAGYL 500 MG ORAL TABLET 1 tablet by mouth two times daily 2014 METRONIDAZOLE 56443123424 No Longer Active Nilam Gus Ac tive ZITHROMAX 250 MG ORAL TABLET 2 po today, then 1 po q days 2-5 20 06/08/16 AZITHROMYCIN 51857722730 No Longer Active Arie Casper MD Active VITAMINS 0.8 MG ORAL TABLET take 1 tab po qday [id number] 82996169735 No Longer Active Arie Casepr MD Active IBUPROFEN 800 MG ORAL TABLET take one po Q 8 hours 201 02/01/16 IBUPROFEN 82375474317 No Longer Active Arie Casper MD Acti ve [facility] TUSSIN COUGH/COLD CF 5-10-100 MG/5ML ORAL LIQUID 2 teasp oons every 4 hours [id number] 81253851694 No Longer Active Blaine Casper MD Active COMTREX COLD/COUGH DAY/NITE MS 5-2-10-325 MG ORAL 2 caps deja ry 4 hours [id number] 47483951158 No Longer Active Landon Casper MD Active CHLORASEPTIC MAX SORE THROAT 15-10 MG MOUTH/THROAT LOZENGE 1 every 2 hours prn BENZOCAINE-MENTHOL 77552052745 No Longer Active Arie Casper MD Active PREDNISONE 20 MG ORAL TABLET 2 tabs daily for 3 days, 1 tab daily for 3 days, 1/2 tab daily for 2 days PREDNISONE 01836615627 No Longer Active Jose Zhong MD Active AZITHROMYCIN 250 MG ORAL TABLET 2 po qd x 1 day, then 1 po q d x 4 days AZITHROMYCIN 12548578669 No Longer Active Jose Mcwilliams MD Active ZOFRAN ODT 4 MG ORAL TABLET DISINTEGRATING 1 po q6hr PRN Nausea ONDANSETRON 53533430012 No Longer Active Rich Rosales MD Active ZOFRAN 4 MG ORAL TABLET 1 tablet every 4 hours ONDANSETRON HCL 89302166205 No Longer Active Rich Rosales MD Activ e MUCINEX 600 MG ORAL TABLET EXTENDED RELEASE 12 HOUR Ta ke 1-2 tablets every 12 hours GUAIFENESIN 92854996269 No Longer Active Rich Rosales MD Active BACTRIM 400-80 MG ORAL TABLET take one po BID SULFAMETHOXAZOLE-TRIMETHOPRIM 51699729209 No Longer Active Abelardo HERNANDEZ Active AZITHROMYCIN 500 MG ORAL TABLET 1 PO q day x 6 days 20 03/02/23 AZITHROMYCIN 45335780121 No Longer Active Tin HERNANDEZ Activ e ZITHROMAX 250 MG ORAL TABLET 2 po today, then 1 po q days 2-5 20 10/03/08 AZITHROMYCIN 95974710446 No Longer Active Aire Casper MD Active ZITHROMAX 250 MG ORAL TABLET 2 po today, then 1 po q days 2-5 20 09/23/25 AZITHROMYCIN 98553193092 No Longer Active Arie Casper MD Active AMOXICILLIN 500 MG ORAL CAPSULE 1 tab by mouth 3 times daily 201 11/24/09 AMOXICILLIN 14116021669 No Longer Active Arie Casper MD Active BACTRIM DS 800-160 MG ORAL TABLET 1 tab by mouth twice daily 201 11/03/14 TRIMETHOPRIM-SULFAMETHOXAZOLE 41422109381 No Longer Active Fozia Casper MD Active AMOXICILLIN 500 MG ORAL TABLET take 1 tab po TID 08/05 AMOXICILLIN 68682645821 No Longer Active Arie Casper MD Acti ve BACTRIM DS 800-160 MG ORAL TABLET 1 tab by mouth twice daily 201 11/03/14 BACTRIM DS 800-160 MG ORAL TABLET 201367 TRIMETHOPRIM-SULFAMETHOXAZOLE Inactive MUCINEX 600 MG ORAL TABLET EXTENDED RELEASE 12 HOUR Ta ke 1-2 tablets every 12 hours MUCINEX 600 MG ORAL TABLET EXTENDED RELEA SE 12 HOUR GUAIFENESIN Inactive ZOFRAN 4 MG ORAL TABLET 1 tablet every 4 hours ZOFRAN 4 MG ORAL TABLET 448388 ONDANSETRON HCL Inactive ZOFRAN ODT 4 MG ORAL TABLET DISINTEGRATING 1 po q6hr PRN Nausea ZOFRAN ODT 4 MG ORAL TABLET DISINTEGRATING 348169 ONDAN SETRON Inactive CHLORASEPTIC MAX SORE THROAT 15-10 MG MOUTH/THROAT LOZENGE 1 every 2 hours prn CHLORASEPTIC MAX SORE THROAT 15-10 MG MOUTH/THROAT LOZENGE BENZOCAINE-MENTHOL Inactive COMTREX COLD/COUGH DAY/NITE MS 5-2-10-325 MG ORAL 2 caps deja ry 4 hours COMTREX COLD/COUGH DAY/NITE MS 5-2-10-325 MG ORA L [id number] Inactive [facility] TUSSIN COUGH/COLD CF 5-10-100 MG/5ML ORAL LIQUID 2 teasp oons every 4 hours [facility] TUSSIN COUGH/COLD CF 5-10-100 MG/5ML ORAL LI QUID [id number] Inactive IBUPROFEN 800 MG ORAL TABLET take one po Q 8 hours 201 02/01/16 IBUPROFEN 800 MG ORAL TABLET IBUPROFEN Inactive VITAMINS 0.8 MG ORAL TABLET take 1 tab po qday VITAMINS 0.8 MG ORAL TABLET [id number] E-FA Inactive TESSALON PERLES 100 MG ORAL CAPSULE 1 tablet by mouth 3 times da cory TESSALON PERLES 100 MG ORAL CAPSULE 063332 BENZONATATE Inactive AMOXICILLIN 500 MG ORAL CAPSULE 1 tab by mouth 3 times daily 201 02/21/05 AMOXICILLIN 500 MG ORAL CAPSULE 945342 AMOXICILLIN Inactive GUAIFENESIN-CODEINE 100-10 MG/5ML ORAL SYRUP 2 tsp every 6 hours prn GUAIFENESIN-CODEINE 100-10 MG/5ML ORAL SYRUP 332981 GUAIFENESIN-CODEINE Inactive VICKS DAYQUIL SEVERE COLD/FLU TABLET 1 tab every 6 hours prn 201 02/22/17 VICKS DAYQUIL SEVERE COLD/FLU TABLET PHENYLEPHRI [id number] TABS Inactive BACTRIM DS 800-160 MG ORAL TABLET 1 twice a day 05/30 BACTRIM DS 800-160 MG ORAL TABLET 483674 SULFAMETHOXAZOLE-TRIMETHOPRIM Inactiv e PROMETHAZINE HCL 25 MG ORAL TABLET 1 four times a day as nee ded for vomiting PROMETHAZINE HCL 25 MG ORAL TABLET 883022 PROMETHAZINE HCL Inactive ZYRTEC ALLERGY 10 MG ORAL CAPSULE 1 po qd ZYRTEC ALLERGY 10 MG ORAL CAPSULE CETIRIZINE HCL Inactive MACROBID 100 MG ORAL CAPSULE 1 cap by mouth twice daily MACROBID 100 MG ORAL CAPSULE 9253363 NITROFURANTOIN MONOHYD MACRO In active LOMOTIL 2.5-0.025 MG ORAL TABLET 1 to 2 four times a day as needed for diarrhea LOMOTIL 2.5-0.025 MG ORAL TABLET 7497226 DIPHENOXYLATE-ATROPINE Inactive CYCLOBENZAPRINE HCL 10 MG ORAL TABLET 1/2 - 1 tablet b y mouth three times daily as needed for muscle spasm/pain CYCLOBEN ZAPRINE HCL 10 MG ORAL TABLET 726051 CYCLOBENZAPRINE HCL Inactive AMOXICILLIN 500 MG ORAL TABLET 2 tabs twice a day for 10 days 20 07/09/11 AMOXICILLIN 500 MG ORAL TABLET 278513 AMOXICILLIN I nactive LOMOTIL 2.5-0.025 MG ORAL TABLET 1 to 2 four times a day as needed for diarrhea LOMOTIL 2.5-0.025 MG ORAL TABLET 2593827 DIPHENOXYLATE-ATROPINE Inactive ZOFRAN 4 MG ORAL TABLET 1 TAB PO Q 6 HRS PRN NAUSEA 20 07/10/15 ZOFRAN 4 MG ORAL TABLET 295872 ONDANSETRON HCL Inactive CITRATE OF MAGNESIA ORAL SOLUTION 1 bottle today for constipatio n CITRATE OF MAGNESIA ORAL SOLUTION 3521899 MAGNESIUM CITR ATE Inactive PROMETHAZINE HCL 12.5 MG ORAL TABLET 1 tablet by mouth every 6 hours as needed for nausea/vomiting PROMETHAZINE HCL 12.5 MG ORA L TABLET 309999 PROMETHAZINE HCL Inactive PREDNISONE 20 MG ORAL TABLET 1 tablet twice daily for 2 days, then 1 tablet once daily for 2 days PREDNISONE 20 MG ORAL TABLET 397651 PREDNISONE Inactive ALPRAZOLAM 0.25 MG ORAL TABLET 1 tablet by mouth every 8 hours as needed for stress ALPRAZOLAM 0.25 MG ORAL TABLET 137981 ALPRA ZOLAM Inactive FLONASE 50 MCG/ACT NASAL SUSPENSION 1 spray each nostr il twice daily for allergies and runny nose until gone FLON ASE 50 MCG/ACT NASAL SUSPENSION 7346097 FLUTICASONE PROPIONATE Inactive PREDNISONE 20 MG ORAL TABLET 1 tablet daily for airway inflammat ion PREDNISONE 20 MG ORAL TABLET 923795 PREDNISONE [place] ctive NAPROXEN 500 MG ORAL TABLET Take 1 tab BID NAPROXEN 500 MG ORAL TABLET 821460 NAPROXEN Inactive ZOLOFT 50 MG ORAL TABLET 1 tablet by mouth daily 12/08 ZOLOFT 50 MG ORAL TABLET 424704 SERTRALINE HCL Inactive LOMOTIL 2.5-0.025 MG ORAL TABLET 1 tab po four times a day as needed for diarrhea LOMOTIL 2.5-0.025 MG ORAL TABLET 5026884 DIPHENOXYLATE-ATROPINE Inactive CETIRIZINE HCL 10 MG ORAL TABLET 1 po qd PRN Allergies CETIRIZINE HCL 10 MG ORAL TABLET 9237752 CETIRIZINE HCL Inactiv e TUSSIONEX PENNKINETIC ER 10-8 MG/5ML ORAL SUSPENSION E XTENDED RELEASE 5ml po q12hr PRN Cough TUSSIONEX PENNKINETI C ER 10-8 MG/5ML ORAL SUSPENSION EXTENDED RELEASE HYDROCOD POLST-CHLORPHEN POLST I nactive NEXPLANON IMPLANT right arm subcutaneously NEXPLANON IMPLANT ETONOGESTREL IMPL Inactive PROTONIX 40 MG ORAL TABLET DELAYED RELEASE 1 po q a.m. PROTONIX 40 MG ORAL TABLET DELAYED RELEASE 037599 PANTOPRAZOLE SODI UM Inactive CHERATUSSIN AC 100-10 MG/5ML ORAL SYRUP 1 tsp by mouth every 4 hours as needed for cough CHERATUSSIN AC 100-10 MG/5ML ORAL SYRUP 9 46245 GUAIFENESIN-CODEINE Inactive GUAIFENESIN DM 400-20 MG ORAL TABLET 1 pill by mouth t wice daily, if needed for cough GUAIFENESIN DM 400-20 MG ORAL TABLET 1147 685 DEXTROMETHORPHAN-GUAIFENESIN Inactive AMOXICILLIN 500 MG ORAL TABLET take 1 tab po TID 08/05 AMOXICILLIN 500 MG ORAL TABLET 821098 AMOXICILLIN Inactive AMOXICILLIN 500 MG ORAL CAPSULE 1 tab by mouth 3 times daily 201 11/24/09 AMOXICILLIN 500 MG ORAL CAPSULE 574389 AMOXICILLIN Inactive ZITHROMAX 250 MG ORAL TABLET 2 po today, then 1 po q days 2-5 20 09/23/25 ZITHROMAX 250 MG ORAL TABLET 106749 AZITHROMYCIN [place] ctive ZITHROMAX 250 MG ORAL TABLET 2 po today, then 1 po q days 2-5 20 10/03/08 ZITHROMAX 250 MG ORAL TABLET 950451 AZITHROMYCIN [place] ctive AZITHROMYCIN 500 MG ORAL TABLET 1 PO q day x 6 days 20 03/02/23 AZITHROMYCIN 500 MG ORAL TABLET 4527319 AZITHROMYCIN Inactive BACTRIM 400-80 MG ORAL TABLET take one po BID BACTRIM 400- 80 MG ORAL TABLET 211787 SULFAMETHOXAZOLE-TRIMETHOPRIM Inactive AZITHROMYCIN 250 MG ORAL TABLET 2 po qd x 1 day, then 1 po q d x 4 days AZITHROMYCIN 250 MG ORAL TABLET 785002 AZITHROMY ALLISON Inactive PREDNISONE 20 MG ORAL TABLET 2 tabs daily for 3 days, 1 tab daily for 3 days, 1/2 tab daily for 2 days PREDNISONE 20 MG ORAL T ABLET 129940 PREDNISONE Inactive ZITHROMAX 250 MG ORAL TABLET 2 po today, then 1 po q days 2-5 20 06/08/16 ZITHROMAX 250 MG ORAL TABLET 144272 AZITHROMYCIN [place] ctive FLAGYL 500 MG ORAL TABLET 1 tablet by mouth two times daily 2014 FLAGYL 500 MG ORAL TABLET 745134 METRONIDAZOLE Inacti ve AUGMENTIN 875-125 MG ORAL TABLET 1 tab by mouth twice daily with food AUGMENTIN 875-125 MG ORAL TABLET 037176 AMOXICIL ELSA-POT CLAVULANATE Inactive NAPROXEN 500 MG ORAL TABLET one tab PO BID NAPROXEN 500 MG ORAL TABLET 938491 NAPROXEN Inactive PREDNISONE 20 MG ORAL TABLET 2 tabs daily for 3 days, 1 tab daily for 3 days, 1/2 tab daily for 2 days PREDNISONE 20 MG ORAL T ABLET 823953 PREDNISONE Inactive AZITHROMYCIN 250 MG ORAL TABLET 2 po qd x 1 day, then 1 po q d x 4 days AZITHROMYCIN 250 MG ORAL TABLET 544452 AZITHROMY ALLISON Inactive PREDNISONE 20 MG ORAL TABLET 2 tabs daily for 3 days, 1 tab daily for 3 days, 1/2 tab daily for 2 days PREDNISONE 20 MG ORAL T ABLET 163376 PREDNISONE Inactive ZITHROMAX Z-EMIL 250 MG ORAL TABLET 2 today, then 1 daily for 4 d ays ZITHROMAX Z-EMIL 250 MG ORAL TABLET 385941 AZITHROMYCIN Inactive CEFDINIR 300 MG ORAL CAPSULE 1 po BID x 10 days 12/18 CEFDINIR 300 MG ORAL CAPSULE 032031 CEFDINIR Inactive CEFDINIR 300 MG ORAL CAPSULE 1 po BID x 10 days CEFDINIR 300 MG ORAL CAPSULE 20030127 CEFDINIR Inactive PREDNISONE 20 MG ORAL TABLET 2 tabs daily for 3 days, 1 tab daily for 3 days, 1/2 tab daily for 2 days PREDNISONE 20 MG ORAL T ABLET 988803 PREDNISONE Inactive BACTRIM DS 800-160 MG ORAL TABLET 1 tab by mouth twice daily 201 05/02/30 BACTRIM DS 800-160 MG ORAL TABLET 023293 TRIMETHOPRIM-SULFAMETHOXAZOLE Inactive ZITHROMAX Z-EMIL 250 MG ORAL TABLET 2 today, then 1 daily for 4 d ays ZITHROMAX Z-EMIL 250 MG ORAL TABLET 748424 AZITHROMYCIN Inactive TAMIFLU 75 MG ORAL CAPSULE 1 po BID x 5 days 0 TAMIFLU 75 MG ORAL CAPSULE 677280 OSELTAMIVIR PHOSPHATE Inactive CEFDINIR 300 MG ORAL [...] Range Description Lab Report: CBC, Quant [facility] [place] - Hematology leukocyte count, blood 7.8 10^3/MM^3 [...] 5.0-8.5 Encounters Code Encounter Date Provider Facility CPT-18191 Level 3 Est. Patient 11:49:34 COILER OPERATOR Jessica boyd [facility] CPT-48988 Level 3 Est. Patient 14:55:50 COILER OPERATOR Jose Zhong MD [facility] CPT-00187 Level 3 Est. Patient 10:21:41 COILER OPERATOR Arie mcqueen MD [facility] CPT-96295 Level 3 Est. Patient 11:35:15 COILER OPERATOR Arie mcqueen MD [facility] CPT-12276 Level 3 Est. Patient 15:40:28 CDT Brii Are ll [facility] CPT-04736 Level 3 Est. Patient 16:40:36 CDT Arie mcqueen MD [facility] CPT-44404 Level 4 Est. Patient 15:29:22 COILER OPERATOR Arie mcqueen MD [facility] CPT-26025 Level 3 Est. Patient 15:18:16 COILER OPERATOR Jono black [facility] CPT-98815 Level 4 Est. Patient 12:08:40 COILER OPERATOR Brii Are ll [facility] CPT-53655 Level 3 Est. Patient 09:24:42 CDT Brii Are ll [facility] CPT-55290 Level 3 Est. Patient 09:12:56 CDT Arie mcqueen MD [facility] CPT-40700 Level 3 Est. Patient 16:40:54 CDT Jose Zhong MD [facility] CPT-48979 Level 2 Est. Patient 13:01:13 CDT Brii Are ll [facility] CPT-26456 Level 3 Est. Patient 11:55:30 COILER OPERATOR Jono black [facility] CPT-78600 Level 3 Est. Patient 09:52:36 COILER OPERATOR Brii Are ll SURVEILLANCE MONITOR [facility] CPT-42776 Level 3 Est. Patient 16:25:33 COILER OPERATOR Rich Rosales MD [facility] CPT-75777 Level 3 Est. Patient 20:33:55 CDT Arie mcqueen MD [facility] CPT-45664 Level 3 Est. Patient 14:18:20 CDT Rich Rosales MD [facility] CPT-05302 Level 4 Est. Patient 09:34:31 CDT Arie mcqueen MD [facility] CPT-56448 Level 3 Est. Patient 09:08:55 COILER OPERATOR Liliana vincent MD PhD [facility] CPT-57994 Level 3 Est. Patient 16:44:07 COILER OPERATOR Arie mcqueen MD [facility] CPT-63794 Level 3 Est. Patient 10:44:27 CDT Arie mcqueen MD [facility] CPT-21129 Level 3 Est. Patient 08:55:41 CDT Jose Zhong MD [facility] CPT-68581 Level 3 Est. Patient 18:37:31 CDT Liliana vincent MD [facility] CPT-76175 Level 3 Est. Patient 14:28:23 CDT Abelardo HERNANDEZ [facility] CPT-32405 Level 3 Est. Patient 15:18:13 COILER OPERATOR Arie mcqueen MD [facility] CPT-41644 Level 3 Est. Patient 10:11:29 COILER OPERATOR Arie mcqueen MD [facility] CPT-60227 Level 3 Est. Patient 10:55:57 COILER OPERATOR Jono black DO [facility] CPT-11918 Level 3 Est. Patient 17:29:05 CDT Arie mcqueen MD [facility] Procedures Code Procedure Name Date Entry Date Standard Desc ription CPT-44533 Nexplanon Removal 15:40:28 CDT CPT-25039 Sono transvag pelvis non OB uterus ovari es cervix - XRAY USE ONLY 08:58:14 COILER OPERATOR CPT-64199 UA w micro - LAB USE ONLY 16:04:56 COILER OPERATOR 2015 CPT-12143 Wet Prep/GEN - LAB USE ONLY 16:04:56 COILER OPERATOR 20 08/10/29 CPT-40125 First Vx - Ix admin via ID I M or jet injects without counseling by physician 16:57:10 CDT CPT-59024 Fluzone Preservative Free Intramuscular Suspension 16:57:10 CDT CPT-J0696 Rocephin 1000 mg (Ceftriaxone) 11:49:23 CDT CPT-J1040 Depo Medrol 80 mg (Methyl Prednisolone A cetate) 11:49:23 CDT CPT-J1100 Decadron 8mg (Dexamethasone) 11:49:23 CDT 2 CPT-50883 Abx/Therapy Injection 11:49:23 CDT CPT-04006 Abx/Therapy Injection 11:49:23 CDT CPT-89161 Abd compl w upright 09:07:26 COILER OPERATOR CPT-20570 Ear Wash 16:12:47 COILER OPERATOR CPT-OV Office Visit 11:12:01 CDT CPT-OV Office Visit 15:30:23 CDT CPT-84837 Sono pelvis non OB uterus ovaries cervix 15:50:44 CDT CPT-02729 Hand comp min 3V 16:42:32 CDT CPT-84749 Abd compl w upright 12:17:01 CDT CPT-96379 Nexplanon Placement 15:07:39 COILER OPERATOR CPT-58991 Removal of IUD 15:07:39 COILER OPERATOR CPT-41988 TB Tubersol 12:09:32 CDT CPT-84112 TB Tubersol 13:55:43 CDT
--- OUTSIDE RECORDS SUMMARY | 2020-03-03 07:35 | XMS REPORT | Clinical Summary ---
Author Author Admin, Diamante Marcelo Organization [employer] Address Unknown Phone Unavailable Allergies, Adverse Reactions, [...] cute pharyngitis Nausea 787.02 Active Brii Larson ORIENTOR Nausea alone URI 465.9 Active Jono Gagnon [...] Anxiety with depression 300.4 Active Glenn Larson ORIENTOR Dysthymic disorder BREAST CANCER ICD-V16.3 Inactive Jose [...] tablet by mouth daily SERTRA LINE HCL 97475425215 Active Brii Larson APRN Active LOMOTIL 2.5-0.025 MG TAB 1 tab po four times a day as needed for diarrhea DIPHENOXYLATE-ATROPINE 72742931519 Active Brii Larson APRN Active ZITHROMAX Z-EMIL 250 MG TABS 2 today, then 1 daily for 4 days 201 03/31/18 AZITHROMYCIN 14884647195 No Longer Active Arie Casper MD Active ALPRAZOLAM 0.25 MG TAB 1 tablet by mouth every 8 hours as ne eded for stress ALPRAZOLAM 28748705229 Active Brii Larson APRN Active PROTONIX 40 MG ORAL TBEC 1 po q a.m. PANTOPRAZO LE SODIUM 43305668969 Active Carline Ochoa RPT,RMA Active PREDNISONE 20 MG TAB 2 tabs daily for 3 days, 1 t ab daily for 3 days, /2 tab daily for 2 days PREDNISONE 71042839437 No Longer Active Brii Larson APRN Active PREDNISONE 20 MG TAB 1 tablet twice daily for 2 d ays, then 1 tablet once daily for 2 days PREDNISONE 72768184400 No Longer Active Brii Larson APRN Active FLONASE 50 MCG/ACT SUSP 1 spray each nostril twice d aily for allergies and runny nose until gone FLUTICASONE PROPIONATE Active Jono Gagnon DO Active PROMETHAZINE HCL 12.5 MG TABS 1 tablet by mouth every 6 hours as needed for nausea/vomiting PROMETHAZINE HCL 92689334920 No Longe r Active Jono Gagnon DO Active CITRATE OF MAGNESIA ORAL SOLN 1 bottle today for constipation 20 07/10/15 MAGNESIUM CITRATE 08606932103 No Longer Active Jono Gagnon DO Active ZOFRAN 4 MG ORAL TABS 1 TAB PO Q 6 HRS PRN NAUSEA 2014 ONDANSETRON HCL 64190593038 No Longer Active Brii Larson APRN A ctive LOMOTIL 2.5-0.025 MG TAB 1 to 2 four times a day as needed f or diarrhea DIPHENOXYLATE-ATROPINE 99674886473 No Longer Active January Larson APRN Active AMOXICILLIN 500 MG TABS 2 tabs twice a day for 10 days AMOXICILLIN 82981389006 No Longer Active Brii Larson APRN Acti ve NEXPLANON IMPL ETONOGESTREL IMPL 49296355262 Active Rich Rosales MD Active CYCLOBENZAPRINE HCL 10 MG TABS 1/2 - 1 tablet by mouth three times daily as needed for muscle spasm/pain CYCLOBENZAPRINE HCL 57125697177 No Longer Active Arie Casper MD Active LOMOTIL 2.5-0.025 MG TABS 1 to 2 four times a day as needed for diarrhea DIPHENOXYLATE-ATROPINE 72940133579 No Longer Active Mason Casper MD Active MACROBID 100 MG CAP 1 cap by mouth twice daily NITROFURANTOIN MONOHYD MACRO 50220509351 No Longer Active Arie Casper MD Active ZYRTEC ALLERGY 10 MG CAPS 1 po qd CETIRIZINE HCL 77473098777 No Longer Active Arie Casper MD Active AZITHROMYCIN 250 MG TABS 2 po qd x 1 day, then 1 po qd x 4 days AZITHROMYCIN 45617014535 No Longer Active Jillina Frazell ORIENTOR Active PREDNISONE 20 MG TAB 2 tabs daily for 3 days, 1 t ab daily for 3 days, 1/2 tab daily for 2 days PREDNISONE 63927209421 No Longer Active Jillina Frazell ORIENTOR Active PROMETHAZINE HCL 25 MG TABS 1 four times a day as needed for vomiting PROMETHAZINE HCL 84047647086 No Longer Active Myrna Roberto MD Active BACTRIM DS 800-160 MG TABS 1 twice a day SULFAMETHOXAZOLE-TRIMETHOPRIM 90409252103 No Longer Active Myrna Roberto MD Active VICKS DAYQUIL SEVERE COLD/FLU TABS 1 tab every 6 hours prn 12/10 ZAGUVFZHKEPIN-QT-SS-APAP TABS 32061544784 No Longer Active Myrna leigh MD Active GUAIFENESIN-CODEINE 100-10 MG/5ML ORAL SYRP 2 tsp every 6 hours prn GUAIFENESIN-CODEINE 60250109654 No Longer Active Myrna Roberto MD Active NAPROXEN 500 MG TAB one tab PO BID NAPROXEN 332 87497483 No Longer Active Myrna Roberto MD Active AUGMENTIN 875-125 MG TAB 1 tab by mouth twice daily with food 08/12/16 AMOXICILLIN-POT CLAVULANATE 49402750187 No Longer Active Liliana Estrada MD [facility] Active AMOXICILLIN 500 MG CAP 1 tab by mouth 3 times daily 08/12/16 AMOXICILLIN 65758871004 No Longer Active Liliana Estrada MD PhD Acti ve TESSALON PERLES 100 MG CAP 1 tablet by mouth 3 times daily 11/01 BENZONATATE 11149521447 No Longer Active Liliana Estrada MD PhD Active FLAGYL 500 MG TAB 1 tablet by mouth two times daily 20 07/11/29 METRONIDAZOLE 65258110623 No Longer Active Nilam Weber Active ZITHROMAX 250 MG TAB 2 po today, then 1 po q days 2-5 AZITHROMYCIN 16039284162 No Longer Active Arie Casper MD Acti ve VITAMINS 0.8 MG TABS take 1 tab po qday 08/08 PHOCOLEV-CLE-CS-FA 23145200208 No Longer Active Arie Casper MD Active IBUPROFEN 800 MG TABS take one po Q 8 hours IBU PROFEN 37353450491 No Longer Active Arie Casper MD Active [facility] TUSSIN COUGH/COLD CF 5-10-100 MG/5ML LIQD 2 teaspoons ev eliud 4 hours [id number] 71808724139 No Longer Active Blaine Casper MD Active COMTREX COLD/COUGH DAY/NITE MS 5-2-10-325 MG MISC 2 caps deja ry 4 hours XFAOEKROV-UBO-GJ-APAP 93115010985 No Longer Active Da vimason Casper MD Active CHLORASEPTIC MAX SORE THROAT 15-10 MG LOZG 1 every 2 hours prn 2 BENZOCAINE-MENTHOL 35588088848 No Longer Active Arie Marcelo Active PREDNISONE 20 MG TAB 2 tabs daily for 3 days, 1 t ab daily for 3 days, 1/2 tab daily for 2 days PREDNISONE 19997505598 No Longer Active Jose Zhong MD Active AZITHROMYCIN 250 MG TABS 2 po qd x 1 day, then 1 po qd x 4 days AZITHROMYCIN 79443328599 No Longer Active Jose Zhong MD Active ZOFRAN ODT 4 MG TBDP 1 po q6hr PRN Nausea ONDAN SETRON 82899754285 No Longer Active Rich Rosales MD Active ZOFRAN 4 MG TABS 1 tablet every 4 hours ONDANSE JERRELL HCL 33625415614 No Longer Active Rich Rosales MD Active MUCINEX 600 MG [id number]-ZIX Take 1-2 tablets every 12 hours GUAIFENESIN 15837463584 No Longer Active Rich Rosales MD Activ e BACTRIM 400-80 MG TABS take one po BID SULFAMETHOXAZOLE-TRIMETHOPRIM 57740222223 No Longer Active Abelardo HERNANDEZ Active AZITHROMYCIN 500 MG TABS 1 PO q day x 6 days AZ ITHROMYCIN 48283562550 No Longer Active Tin HERNANDEZ Active ZITHROMAX 250 MG TAB 2 po today, then 1 po q days 2-5 AZITHROMYCIN 88731989338 No Longer Active Arie Casper MD Acti ve ZITHROMAX 250 MG TAB 2 po today, then 1 po q days 2-5 AZITHROMYCIN 62415217454 No Longer Active Arie Casper MD Acti ve AMOXICILLIN 500 MG CAP 1 tab by mouth 3 times daily 20 09/23/20 AMOXICILLIN 35371469252 No Longer Active Arie Casper MD Acti ve BACTRIM DS 800-160 MG TAB 1 tab by mouth twice daily 2 TRIMETHOPRIM-SULFAMETHOXAZOLE 90209623157 No Longer Active Arie Casper MD Active AMOXICILLIN 500 MG TABS take 1 tab po TID AMOXI CILLIN 83205770457 No Longer Active Arie Casper MD Active BACTRIM DS 800-160 MG TAB 1 tab by mouth twice daily 2 BACTRIM DS 800-160 MG TAB 694111 TRIMETHOPRIM-SULFAMETHOXAZOLE Inac tive MUCINEX 600 MG AP74Y-GFY Take 1-2 tablets every 12 hours MUCINEX 600 MG PR41Y-NDL GUAIFENESIN Inactive ZOFRAN 4 MG TABS 1 tablet every 4 hours ZOFRAN 4 MG TABS 664988 ONDANSETRON HCL Inactive ZOFRAN ODT 4 MG TBDP 1 po q6hr PRN Nausea ZOFRAN ODT 4 MG TBDP 504588 ONDANSETRON Inactive CHLORASEPTIC MAX SORE THROAT 15-10 MG LOZG 1 every 2 hours prn 2 /04/30 CHLORASEPTIC MAX SORE THROAT 15-10 MG LOZG BENZO ARINA-MENTHOL Inactive COMTREX COLD/COUGH DAY/NITE MS 5-2-10-325 MG MISC 2 caps deja ry 4 hours COMTREX COLD/COUGH DAY/NITE MS 5-2-10-325 MG MIS C [id number]-[id number]-APAP Inactive [facility] TUSSIN COUGH/COLD CF 5-10-100 MG/5ML LIQD 2 teaspoons ev eliud 4 hours [facility] TUSSIN COUGH/COLD CF 5-10-100 MG/5ML LIQD [id number] Inactive IBUPROFEN 800 MG TABS take one po Q 8 hours IBUPROFEN 800 MG TABS 650400 IBUPROFEN Inactive VITAMINS 0.8 MG TABS take 1 tab po qday 08/08 VITAMINS 0.8 MG TABS [id number] Inactive TESSALON PERLES 100 MG CAP 1 tablet by mouth 3 times daily 11/01 TESSALON PERLES 100 MG CAP 006155 BENZONATATE Inact zaid AMOXICILLIN 500 MG CAP 1 tab by mouth 3 times daily 08/12/16 AMOXICILLIN 500 MG CAP 458546 AMOXICILLIN Inactive GUAIFENESIN-CODEINE 100-10 MG/5ML ORAL SYRP 2 tsp every 6 hours prn GUAIFENESIN-CODEINE 100-10 MG/5ML ORAL SYRP 502162 GUAIFENESIN-CODEINE Inactive VICKS DAYQUIL SEVERE COLD/FLU TABS 1 tab every 6 hours prn 12/10 VICKS DAYQUIL SEVERE COLD/FLU TABS PHENYLEPHRINE -DM-GG-APAP TABS Inactive BACTRIM DS 800-160 MG TABS 1 twice a day BACTRIM DS 800- 160 MG TABS 960204 SULFAMETHOXAZOLE-TRIMETHOPRIM Inactive PROMETHAZINE HCL 25 MG TABS 1 four times a day as needed for vomiting PROMETHAZINE HCL 25 MG TABS 425388 PROMETHAZINE HCL Inactive ZYRTEC ALLERGY 10 MG CAPS 1 po qd ZY RTEC ALLERGY 10 MG CAPS CETIRIZINE HCL Inactive MACROBID 100 MG CAP 1 cap by mouth twice daily MACROBID 100 MG CAP 9851735 NITROFURANTOIN MONOHYD MACRO Inactive LOMOTIL 2.5-0.025 MG TABS 1 to 2 four times a day as needed for diarrhea LOMOTIL 2.5-0.025 MG TABS 4102045 DIPHENOXYLATE-A TROPINE Inactive CYCLOBENZAPRINE HCL 10 MG TABS 1/2 - 1 tablet by mouth three times daily as needed for muscle spasm/pain CYCLOBENZAP RINE HCL 10 MG TABS 292037 CYCLOBENZAPRINE HCL Inactive AMOXICILLIN 500 MG TABS 2 tabs twice a day for 10 days AMOXICILLIN 500 MG TABS 106572 AMOXICILLIN Inactive LOMOTIL 2.5-0.025 MG TAB 1 to 2 four times a day as needed f or diarrhea LOMOTIL 2.5-0.025 MG TAB 4816266 DIPHENOXYLATE-AT ROPINE Inactive ZOFRAN 4 MG ORAL TABS 1 TAB PO Q 6 HRS PRN NAUSEA 2014 ZOFRAN 4 MG ORAL TABS 830231 ONDANSETRON HCL Inactive CITRATE OF MAGNESIA ORAL SOLN 1 bottle today for constipation 20 07/10/15 CITRATE OF MAGNESIA ORAL SOLN 2871006 MAGNESIUM CITRATE Inactive PROMETHAZINE HCL 12.5 MG TABS 1 tablet by mouth every 6 hours as needed for nausea/vomiting PROMETHAZINE HCL 12.5 MG TABS 126005 PROMETHAZINE HCL Inactive PREDNISONE 20 MG TAB 1 tablet twice daily for 2 d ays, then 1 tablet once daily for 2 days PREDNISONE 20 MG TAB 739318 PREDNISONE Inac tive AMOXICILLIN 500 MG TABS take 1 tab po TID AMOXICILLIN 500 MG TABS 501369 AMOXICILLIN Inactive AMOXICILLIN 500 MG CAP 1 tab by mouth 3 times daily 09/23/20 AMOXICILLIN 500 MG CAP 664741 AMOXICILLIN Inactive ZITHROMAX 250 MG TAB 2 po today, then 1 po q days 2-5 ZITHROMAX 250 MG TAB 3338345 AZITHROMYCIN Inactive ZITHROMAX 250 MG TAB 2 po today, then 1 po q days 2-5 ZITHROMAX 250 MG TAB 1779860 AZITHROMYCIN Inactive AZITHROMYCIN 500 MG TABS 1 PO q day x 6 days 3 AZITHROMYCIN 500 MG TABS 3799906 AZITHROMYCIN Inactive BACTRIM 400-80 MG TABS take one po BID BA CTRIM 400-80 MG TABS 006046 SULFAMETHOXAZOLE-TRIMETHOPRIM Inactive AZITHROMYCIN 250 MG TABS 2 po qd x 1 day, then 1 po qd x 4 days AZITHROMYCIN 250 MG TABS 6798498 AZITHROMYCIN Inactiv e PREDNISONE 20 MG TAB 2 tabs daily for 3 days, 1 t ab daily for 3 days, 1/2 tab daily for 2 days PREDNISONE 20 MG TAB 547758 PREDNISON E Inactive ZITHROMAX 250 MG TAB 2 po today, then 1 po q days 2-5 ZITHROMAX 250 MG TAB 6211335 AZITHROMYCIN Inactive FLAGYL 500 MG TAB 1 tablet by mouth two times daily 07/11/29 FLAGYL 500 MG TAB 345659 METRONIDAZOLE Inactive AUGMENTIN 875-125 MG TAB 1 tab by mouth twice daily with food 20 08/12/16 AUGMENTIN 875-125 MG TAB 713501 AMOXICILLIN-POT CLAVULA ANGELO Inactive NAPROXEN 500 MG TAB one tab PO BID NAPROXEN 500 MG TAB 922835 NAPROXEN Inactive PREDNISONE 20 MG TAB 2 tabs daily for 3 days, 1 t ab daily for 3 days, 1/2 tab daily for 2 days PREDNISONE 20 MG TAB 950559 PREDNISON E Inactive AZITHROMYCIN 250 MG TABS 2 po qd x 1 day, then 1 po qd x 4 days AZITHROMYCIN 250 MG TABS 4864042 AZITHROMYCIN Inactiv e PREDNISONE 20 MG TAB 2 tabs daily for 3 days, 1 t ab daily for 3 days, 1/2 tab daily for 2 days PREDNISONE 20 MG TAB 564278 PREDNISON E Inactive ZITHROMAX Z-EMIL 250 MG TABS 2 today, then 1 daily for 4 days 201 03/31/18 ZITHROMAX Z-EMIL 250 MG TABS 4940789 AZITHROMYCIN Inac tive Advance Directives Directive Description [...] Range Description blood pressure, diastolic - 8462-4 65 mm[Hg] [...] - 3141-9 172 [lb_av] Weigh t Measured Diagnostic Results Date [...] Panel - Chemistry sodium, serum 136 mmol/L 194-234 4385/04/26 carbon dioxide, venous blood 29.9 mmol/L 21.0-32 [...] - Chem istry sodium, serum 139 mmol/L 373-529 5652/12/15 carbon dioxide, venous blood 30.2 mmol/L 21.0-32 [...] rapid strep method Negative Negative Lab Report: [facility] [place], UADIP W/MICRO, AUTO - Chemistry human chorionic gonadotropin , urine, qualitative (urine test) Negative Negative protein, total urine random Negative mg/dL Negative RBC, urine, dipstick Trace Negative Lab Report: [facility] [place], UADIP W/MICRO, AUTO - Urinalysis urobilinogen, urine, [...] 5.0-8.5 Encounters Code Encounter Date Provider Facility CPT-92937 Level 3 Est. Patient 09:12:56 CDT Arie mcqueen MD [facility] CPT-32659 Level 3 Est. Patient 16:40:54 CDT Jose Zhong MD [facility] CPT-61743 Level 2 Est. Patient 13:01:13 CDT Brii Sylwia PAREKHN [facility]-57706 Level 3 Est. Patient 11:55:30 HOMOEOPATH Jono black DO [facility] CPT-17413 Level 3 Est. Patient 09:52:36 HOMOEOPATH Brii Sylwia PAREKHN [facility] CPT-13068 Level 3 Est. Patient 16:25:33 HOMOEOPATH Rich Rosales MD [facility] CPT-51928 Level 3 Est. Patient 20:33:55 CDT Arie mcqueen MD [facility] CPT-17783 Level 3 Est. Patient 14:18:20 CDT Rich Rosales MD [facility] CPT-02597 Level 4 Est. Patient 09:34:31 CDT Arie mcqueen MD [facility]-33195 Level 3 Est. Patient 09:08:55 HOMOEOPATH Liliana vincent MD PhD [facility] CPT-22480 Level 3 Est. Patient 16:44:07 HOMOEOPATH Arie mcqueen MD [facility] CPT-23414 Level 3 Est. Patient 10:44:27 CDT Arie mcqueen MD [facility] CPT-35324 Level 3 Est. Patient 08:55:41 CDT Jose Zhong MD [facility] CPT-78836 Level 3 Est. Patient 18:37:31 CDT Liliana vincent MD PhD [facility] CPT-17707 Level 3 Est. Patient 14:28:23 CDT Abelardo HERNANDEZ [facility] CPT-44319 Level 3 Est. Patient 15:18:13 HOMOEOPATH Arie mcqueen MD [facility] CPT-97702 Level 3 Est. Patient 10:11:29 HOMOEOPATH Arie mcqueen MD [facility] CPT-65582 Level 3 Est. Patient 10:55:57 HOMOEOPATH Jono black DO [facility] CPT-74676 Level 3 Est. Patient 17:29:05 CDT Arie mcqueen MD [facility] Procedures Code Procedure Name Date Entry Date Standard Desc ription CPT-56003 Abd compl w upright 09:07:26 HOMOEOPATH CPT-12402 Ear Wash 16:12:47 HOMOEOPATH CPT-OV Office Visit 11:12:01 CDT CPT-OV Office Visit 15:30:23 CDT CPT-80327 Sono pelvis non OB uterus ovaries cervix 15:50:44 CDT CPT-59262 Hand comp min 3V 16:42:32 CDT CPT-28626 Abd compl w upright 12:17:01 CDT CPT-59474 Nexplanon Placement 15:07:39 HOMOEOPATH CPT-88419 Removal of IUD 15:07:39 HOMOEOPATH CPT-44446 TB Tubersol 12:09:32 CDT CPT-21911 TB Tubersol 13:55:43 CDT
--- OUTSIDE RECORDS SUMMARY | 2020-03-03 07:35 | XMS REPORT | Clinical Summary ---
Author Author Admin, Diamante Marcelo Organization [facility] Address Unknown Phone Unavailable Allergies, Adverse [...] Bronchitis, not specified as acute or chronic FH BREAST CANCER ICD-V16.3 Inactive Jose Marcelo [...] Jose monreal MD Diarrhea ICD-787.91 Inactive Jose Zhong M D Thumb pain, right ICD-729.5 Inactive Jose pelayo MD Sinusitis, acute ICD-461.9 Inactive Liliana cheema MD PhD Fever ICD-780.60 Inactive Liliana Estrada MD PhD 20 08/12/16 Symptom, cough ICD-786.2 Inactive Liliana Estrada MD PhD Vaginal discharge ICD-623.5 Inactive Liliana lares MD PhD Medication List Medication Instructions Start Date Stop Date Generic Name NDC Status Provider Patient Instruction ZYRTEC ALLERGY 10 MG CAPS 1 po qd CETIRIZINE HC L 50674962317 Active Jillina Frazell [employer] Active AZITHROMYCIN 250 MG TABS 2 po qd x 1 day, then 1 po qd x 4 days AZITHROMYCIN 26432159506 Active Jillina Frazell [employer] A ctive PREDNISONE 20 MG TAB 2 tabs daily for 3 days, 1 t ab daily for 3 days, 1/2 tab daily for 2 days PREDNISONE 58640878945 Active Jessica Alcazaranette PAREKHN Active MACROBID 100 MG CAP 1 cap by mouth twice daily NITROFURANTOIN MONOHYD MACRO 51372109312 Active Myrna Roberto MD Active PROMETHAZINE HCL 25 MG TABS 1 four times a day as needed for vomiting PROMETHAZINE HCL 50802491937 No Longer Active Myrna Roberto MD Active BACTRIM DS 800-160 MG TABS 1 twice a day SULFAMETHOXAZOLE-TRIMETHOPRIM 00848162182 No Longer Active Myrna Roberto MD Active VICKS DAYQUIL SEVERE COLD/FLU TABS 1 tab every 6 hours prn 12/10 [id number]-APAP TABS 34136387472 No Longer Active Myrna leigh MD Active GUAIFENESIN-CODEINE 100-10 MG/5ML ORAL SYRP 2 tsp every 6 hours prn GUAIFENESIN-CODEINE 17493843829 No Longer Active Myrna Roberto MD Active NAPROXEN 500 MG TAB one tab PO BID NAPROXEN 332 03812697 No Longer Active Myrna Roberto MD Active LOMOTIL 2.5-0.025 MG TABS 1 to 2 four times a day as needed for diarrhea DIPHENOXYLATE-ATROPINE 75301830293 Active Rich mcintosh MD Active AUGMENTIN 875-125 MG TAB 1 tab by mouth twice daily with food 08/12/16 AMOXICILLIN-POT CLAVULANATE 56549119059 No Longer Active Liliana Estrada MD PhD Active CYCLOBENZAPRINE HCL 10 MG TABS 1/2 - 1 tablet by mouth three times daily as needed for muscle spasm/pain CYCLOBENZAPRINE HCL 37957 604556 Active Liliana Estrada MD PhD Active AMOXICILLIN 500 MG CAP 1 tab by mouth 3 times daily 08/12/16 AMOXICILLIN 84623326889 No Longer Active Liliana Estrada MD PhD Acti ve TESSALON PERLES 100 MG CAP 1 tablet by mouth 3 times daily 11/01 BENZONATATE 81188618992 No Longer Active Liliana Estrada MD PhD Active FLAGYL 500 MG TAB 1 tablet by mouth two times daily 07/11/29 METRONIDAZOLE 90584968944 No Longer Active Nilam Weber Active ZITHROMAX 250 MG TAB 2 po today, then 1 po q days 2-5 AZITHROMYCIN 82413860547 No Longer Active Arie Casper MD Acti ve VITAMINS 0.8 MG TABS take 1 tab po qday 08/08 [id number] 24643177467 No Longer Active Arie Casper MD Active IBUPROFEN 800 MG TABS take one po Q 8 hours IBU PROFEN 45493249288 No Longer Active Arie Casper MD Active [facility] TUSSIN COUGH/COLD CF 5-10-100 MG/5ML LIQD 2 teaspoons ev eliud 4 hours GBRLBCPXRCBNX-HC-YZ 19145693338 No Longer Active Blaine Casper MD Active COMTREX COLD/COUGH DAY/NITE MS 5-2-10-325 MG MISC 2 caps deja ry 4 hours [id number]-SRS-ZG-APAP 46855742455 No Longer Active Da vimason Casper MD Active CHLORASEPTIC MAX SORE THROAT 15-10 MG LOZG 1 every 2 hours prn 2 BENZOCAINE-MENTHOL 59979144834 No Longer Active Arie Marcelo Active PREDNISONE 20 MG TAB 2 tabs daily for 3 days, 1 t ab daily for 3 days, 1/2 tab daily for 2 days PREDNISONE 97953105642 No Longer Active Jose Zhong MD Active AZITHROMYCIN 250 MG TABS 2 po qd x 1 day, then 1 po qd x 4 days AZITHROMYCIN 22097241897 No Longer Active Jose Zhong MD Active ZOFRAN ODT 4 MG TBDP 1 po q6hr PRN Nausea ONDAN SETRON 53472219607 No Longer Active Rich Rosales MD Active ZOFRAN 4 MG TABS 1 tablet every 4 hours ONDANSE JERRELL HCL 71327424813 No Longer Active Rich Rosales MD Active MUCINEX 600 MG [id number] Take 1-2 tablets every 12 hours GUAIFENESIN 94795642212 No Longer Active Rich Rosales MD Activ e BACTRIM 400-80 MG TABS take one po BID SULFAMETHOXAZOLE-TRIMETHOPRIM 30534341186 No Longer Active Abelardo HERNANDEZ Active AZITHROMYCIN 500 MG TABS 1 PO q day x 6 days AZ ITHROMYCIN 77295752557 No Longer Active Tin HERNANDEZ Active ZITHROMAX 250 MG TAB 2 po today, then 1 po q days 2-5 AZITHROMYCIN 91014001674 No Longer Active Arie Casper MD Acti ve ZITHROMAX 250 MG TAB 2 po today, then 1 po q days 2-5 AZITHROMYCIN 94566738807 No Longer Active Arie Casper MD Acti ve AMOXICILLIN 500 MG CAP 1 tab by mouth 3 times daily 09/23/20 AMOXICILLIN 36484791470 No Longer Active Arie Casper MD Acti ve BACTRIM DS 800-160 MG TAB 1 tab by mouth twice daily 2 TRIMETHOPRIM-SULFAMETHOXAZOLE 38045486963 No Longer Active Arie Casper MD Active AMOXICILLIN 500 MG TABS take 1 tab po TID AMOXI CILLIN 05190903119 No Longer Active Arie Casper MD Active BACTRIM DS 800-160 MG TAB 1 tab by mouth twice daily 2 BACTRIM DS 800-160 MG TAB TRIMETHOPRIM-SULFAMETHOXAZOLE Inac tive MUCINEX 600 MG [id number] Take 1-2 tablets every 12 hours MUCINEX 600 MG [id number] GUAIFENESIN Inactive ZOFRAN 4 MG TABS 1 tablet every 4 hours ZOFRAN 4 MG TABS 558395 ONDANSETRON HCL Inactive ZOFRAN ODT 4 MG TBDP 1 po q6hr PRN Nausea ZOFRAN ODT 4 MG TBDP 941362 ONDANSETRON Inactive CHLORASEPTIC MAX SORE THROAT 15-10 MG LOZG 1 every 2 hours prn 2 CHLORASEPTIC MAX SORE THROAT 15-10 MG LOZG BENZO ARINA-MENTHOL Inactive COMTREX COLD/COUGH DAY/NITE MS 5-2-10-325 MG MISC 2 caps deja ry 4 hours COMTREX COLD/COUGH DAY/NITE MS 5-2-10-325 MG MIS C [id number]-[id number]-APAP Inactive [facility] TUSSIN COUGH/COLD CF 5-10-100 MG/5ML LIQD 2 teaspoons ev eliud 4 hours [facility] TUSSIN COUGH/COLD CF 5-10-100 MG/5ML LIQD [id number] Inactive IBUPROFEN 800 MG TABS take one po Q 8 hours IBUPROFEN 800 MG TABS IBUPROFEN Inactive VITAMINS 0.8 MG TABS take 1 tab po qday 08/08 VITAMINS 0.8 MG TABS [id number]-[id number]-AT-FA Inactive TESSALON PERLES 100 MG CAP 1 tablet by mouth 3 times daily 11/01 TESSALON PERLES 100 MG CAP 334033 BENZONATATE Inact zaid AMOXICILLIN 500 MG CAP 1 tab by mouth 3 times daily 08/12/16 AMOXICILLIN 500 MG CAP 848555 AMOXICILLIN Inactive GUAIFENESIN-CODEINE 100-10 MG/5ML ORAL SYRP 2 tsp every 6 hours prn GUAIFENESIN-CODEINE 100-10 MG/5ML ORAL SYRP 849468 GUAIFENESIN-CODEINE Inactive VICKS DAYQUIL SEVERE COLD/FLU TABS 1 tab every 6 hours prn 12/10 VICKS DAYQUIL SEVERE COLD/FLU TABS PHENYLEPHRINE -DM-GG-APAP TABS Inactive BACTRIM DS 800-160 MG TABS 1 twice a day BACTRIM DS 800- 160 MG TABS SULFAMETHOXAZOLE-TRIMETHOPRIM Inactive PROMETHAZINE HCL 25 MG TABS 1 four times a day as needed for vomiting PROMETHAZINE HCL 25 MG TABS 616218 PROMETHAZINE HCL Inactive AMOXICILLIN 500 MG TABS take 1 tab po TID AMOXICILLIN 500 MG TABS 750969 AMOXICILLIN Inactive AMOXICILLIN 500 MG CAP 1 tab by mouth 3 times daily 09/23/20 AMOXICILLIN 500 MG CAP 410145 AMOXICILLIN Inactive ZITHROMAX 250 MG TAB 2 po today, then 1 po q days 2-5 ZITHROMAX 250 MG TAB 0452294 AZITHROMYCIN Inactive ZITHROMAX 250 MG TAB 2 po today, then 1 po q days 2-5 ZITHROMAX 250 MG TAB 6046039 AZITHROMYCIN Inactive AZITHROMYCIN 500 MG TABS 1 PO q day x 6 days 3 AZITHROMYCIN 500 MG TABS 9669661 AZITHROMYCIN Inactive BACTRIM 400-80 MG TABS take one po BID BA CTRIM 400-80 MG TABS 031959 SULFAMETHOXAZOLE-TRIMETHOPRIM Inactive AZITHROMYCIN 250 MG TABS 2 po qd x 1 day, then 1 po qd x 4 days AZITHROMYCIN 250 MG TABS 0169012 AZITHROMYCIN Inactiv e PREDNISONE 20 MG TAB 2 tabs daily for 3 days, 1 t ab daily for 3 days, 1/2 tab daily for 2 days PREDNISONE 20 MG TAB 954376 PREDNISON E Inactive ZITHROMAX 250 MG TAB 2 po today, then 1 po q days 2-5 ZITHROMAX 250 MG TAB 3821886 AZITHROMYCIN Inactive FLAGYL 500 MG TAB 1 tablet by mouth two times daily 07/11/29 FLAGYL 500 MG TAB 911838 METRONIDAZOLE Inactive AUGMENTIN 875-125 MG TAB 1 tab by mouth twice daily with food 08/12/16 AUGMENTIN 875-125 MG TAB 461210 AMOXICILLIN-POT CLAVULA ANGELO Inactive NAPROXEN 500 MG TAB one tab PO BID NAPROXEN 500 MG TAB 375117 NAPROXEN Inactive Advance Directives Directive Description Start [...] 214 10^3/MM^3 10*3/mm3 142-424 Lab Report: Chlamydia/GC APTIMA/[id number] - Lab chlamydia DNA probe NOT DETECTED NOT DETECTED Lab Report: Chlamydia/GC APTIMA/[id number] - Microbiology Neisseria gonorrhoeae DNA probe NOT DETECTED NO T DETECTED Lab Report: HIV-1/2 Agn/Darcy/21095, HEPAT ITIS PANEL, ACUTE W/REFLE - Chemistry [...] 5.0-8.5 Encounters Code Encounter Date Provider Facility CPT-66373 Level 3 Est. Patient 14:18:20 CDT Rich Rosales MD [facility] CPT-43306 Level 4 Est. Patient 09:34:31 CDT Arie mcqueen MD [facility] CPT-05522 Level 3 Est. Patient 09:08:55 [address] [employer] Liliana vincent MD PhD [facility] CPT-18060 Level 3 Est. 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 Patient 10:44:27 CDT Arie mcqueen MD [facility] CPT-46999 Level 3 Est. Patient 08:55:41 CDT Jose Zhong MD [facility] CPT-87782 Level 3 Est. Patient 18:37:31 CDT Liliana vincent MD PhD [facility] CPT-17451 Level 3 Est. Patient 14:28:23 CDT Abelardo marroquin PA [facility] CPT-58154 Level 3 Est. 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 Patient 10:55:57 [address] [employer] TR[employer] DRIVER Jono black DO [facility] CPT-95139 Level 3 Est. 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
--- OUTSIDE RECORDS SUMMARY | 2020-03-03 07:35 | XMS REPORT | Clinical Summary ---
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 Nausea alone URI 465.9 Active Jono Gagnon DO Acu te upper respiratory infections of unspecified site Allergic rhinitis 477.9 Active Brii Christianson PRN Allergic rhinitis, cause unspecified Abdominal pain, right lower quadrant 789.03 Active Jose Zhong MD Abdominal pain, right lower quadrant Urinary frequency 788.41 Inactive Roseann Crawford Urinary frequency Urinary frequency 788.41 Active 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, 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 Urinary frequency Sinusitis - acute 461.9 Active Brii Christianson PRN Acute sinusitis, unspecified Anxiety with depression 300.4 Active Glenn Larson 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 [employer]RI[employer] Dysthymic disorder URI 465.9 Active Jono Gagnon [...] Generic Name NDC Status Provider Patient Instruction NEXPLANON IMPL right arm subcutaneously ETONOGE STREL IMPL [id number] No Longer Active Brii Larson APRN Active TUSSIONEX PENNKINETIC ER 10-8 MG/5ML LQCR 5ml po q12hr PRN Cough HYDROCOD POLST-CHLORPHEN POLST 39022207639 No Longer Active Brii Larson APRN Active CETIRIZINE HCL 10 MG ORAL TABS 1 po qd PRN Allergies 2 CETIRIZINE HCL 11957457605 No Longer Active Brii Larson APRN Ac tive PREDNISONE 20 MG TAB 2 tabs daily for 3 days, 1 t ab daily for 3 days, 1/2 tab daily for 2 days PREDNISONE 84213640803 No Longer Active Arie Casper MD Active LOMOTIL 2.5-0.025 MG TAB 1 tab po four times a day as needed for diarrhea DIPHENOXYLATE-ATROPINE 38472892360 No Longer Active Mason Casper MD Active ZOLOFT 50 MG TAB 1 tablet by mouth daily SERTRA LINE HCL 18646573488 No Longer Active Arie Casper MD Active NAPROXEN 500 MG TAB Take 1 tab BID NAPROXEN 332 93568785 No Longer Active Arie Casper MD Active CEFDINIR 300 MG CAPS 1 po BID x 10 days CEFDINI R 36627779761 No Longer Active Brii Larson APRN Active PREDNISONE 20 MG TAB 1 tablet daily for airway inflammation 2015 PREDNISONE 58214953747 No Longer Active Brii Larson APRN Active CEFDINIR 300 MG CAPS 1 po BID x 10 days CEFDINI R 84707021080 No Longer Active Jono Gagnon DO Active FLONASE 50 MCG/ACT SUSP 1 spray each nostril twice d aily for allergies and runny nose until gone FLUTICASONE PROPIONATE No Longe r Active Jono Gagnon DO Active ALPRAZOLAM 0.25 MG TAB 1 tablet by mouth every 8 hours as ne eded for stress ALPRAZOLAM 19537006582 No Longer Active Jono Gagnon DO Active ZITHROMAX Z-EMIL 250 MG TABS 2 today, then 1 daily for 4 days 201 03/31/18 AZITHROMYCIN 08993500784 No Longer Active Arie Casper MD Active PROTONIX 40 MG ORAL TBEC 1 po q a.m. PANTOPRAZO LE SODIUM 27604592960 Active Arie Casper MD Active PREDNISONE 20 MG TAB 2 tabs daily for 3 days, 1 t ab daily for 3 days, 1/2 tab daily for 2 days PREDNISONE 18320052844 No Longer Active Brii Larson APRN Active PREDNISONE 20 MG TAB 1 tablet twice daily for 2 d ays, then 1 tablet once daily for 2 days PREDNISONE 42893271585 No Longer Active Brii Larson APRN Active PROMETHAZINE HCL 12.5 MG TABS 1 tablet by mouth every 6 hours as needed for nausea/vomiting PROMETHAZINE HCL 11989178023 No Longe r Active Jono Gagnon DO Active CITRATE OF MAGNESIA ORAL SOLN 1 bottle today for constipation 20 07/10/15 MAGNESIUM CITRATE 27097091683 No Longer Active Jono Gagnon DO Active ZOFRAN 4 MG ORAL TABS 1 TAB PO Q 6 HRS PRN NAUSEA 2014 ONDANSETRON HCL 65977792439 No Longer Active Brii Larson APRN A ctive LOMOTIL 2.5-0.025 MG TAB 1 to 2 four times a day as needed f or diarrhea DIPHENOXYLATE-ATROPINE 10278185061 No Longer Active January Larson APRN Active AMOXICILLIN 500 MG TABS 2 tabs twice a day for 10 days AMOXICILLIN 75851788378 No Longer Active Brii Larson APRN Acti ve CYCLOBENZAPRINE HCL 10 MG TABS 1/2 - 1 tablet by mouth three times daily as needed for muscle spasm/pain CYCLOBENZAPRINE HCL 99582707944 No Longer Active Arie Casper MD Active LOMOTIL 2.5-0.025 MG TABS 1 to 2 four times a day as needed for diarrhea DIPHENOXYLATE-ATROPINE 69881474732 No Longer Active Mason Casper MD Active MACROBID 100 MG CAP 1 cap by mouth twice daily NITROFURANTOIN MONOHYD MACRO 65124545632 No Longer Active Arie Casper MD Active ZYRTEC ALLERGY 10 MG CAPS 1 po qd CETIRIZINE HCL 64557666875 No Longer Active Arie Casper MD Active AZITHROMYCIN 250 MG TABS 2 po qd x 1 day, then 1 po qd x 4 days AZITHROMYCIN 94259438089 No Longer Active Jillina Frazell 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 [employer]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 Active PREDNISONE 20 MG TAB 2 tabs daily for 3 days, 1 t ab daily for 3 days, 1/2 tab daily for 2 days PREDNISONE 37413560308 No Longer Active Jillina Frazell 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 [employer]RI[employer]INESS Active PROMETHAZINE HCL 25 MG TABS 1 four times a day as needed for vomiting PROMETHAZINE HCL 57082623971 No Longer Active Myrna Roberto MD Active BACTRIM DS 800-160 MG TABS 1 twice a day SULFAMETHOXAZOLE-TRIMETHOPRIM 76876600822 No Longer Active Myrna Roberto MD Active VICKS DAYQUIL SEVERE COLD/FLU TABS 1 tab every 6 hours prn 12/10 [id number] TABS 64852102506 No Longer Active Myrna leigh MD Active GUAIFENESIN-CODEINE 100-10 MG/5ML ORAL SYRP 2 tsp every 6 hours prn GUAIFENESIN-CODEINE 93377841655 No Longer Active Myrna Roberto MD Active NAPROXEN 500 MG TAB one tab PO BID NAPROXEN 332 63427487 No Longer Active Myrna Roberto MD Active AUGMENTIN 875-125 MG TAB 1 tab by mouth twice daily with food 20 08/12/16 AMOXICILLIN-POT CLAVULANATE 62494331750 No Longer Active Liliana Estrada MD [facility] Active AMOXICILLIN 500 MG CAP 1 tab by mouth 3 times daily 08/12/16 AMOXICILLIN 23584798563 No Longer Active Liliana Estrada MD PhD Acti ve TESSALON PERLES 100 MG CAP 1 tablet by mouth 3 times daily 11/01 BENZONATATE 83555944973 No Longer Active Liliana Estrada MD PhD Active FLAGYL 500 MG TAB 1 tablet by mouth two times daily 20 07/11/29 METRONIDAZOLE 83368162567 No Longer Active Nilam Weber Active ZITHROMAX 250 MG TAB 2 po today, then 1 po q days 2-5 AZITHROMYCIN 29993622593 No Longer Active Arie Casper MD Acti ve VITAMINS 0.8 MG TABS take 1 tab po qday 08/08 [id number] 72699048908 No Longer Active Arie Casper MD Active IBUPROFEN 800 MG TABS take one po Q 8 hours IBU PROFEN 23152752781 No Longer Active Arie Casper MD Active [facility] TUSSIN COUGH/COLD CF 5-10-100 MG/5ML LIQD 2 teaspoons ev eliud 4 hours [id number] 13092363593 No Longer Active Blaine Casper MD Active COMTREX COLD/COUGH DAY/NITE MS 5-2-10-325 MG MISC 2 caps deja ry 4 hours [id number] 07178753938 No Longer Active Da vimason Casper MD Active CHLORASEPTIC MAX SORE THROAT 15-10 MG LOZG 1 every 2 hours prn 2 BENZOCAINE-MENTHOL 50162490162 No Longer Active Arie Marcelo Active PREDNISONE 20 MG TAB 2 tabs daily for 3 days, 1 t ab daily for 3 days, 1/2 tab daily for 2 days PREDNISONE 21251095713 No Longer Active Jose Zhong MD Active AZITHROMYCIN 250 MG TABS 2 po qd x 1 day, then 1 po qd x 4 days AZITHROMYCIN 80642538471 No Longer Active Jose Zhong MD Active ZOFRAN ODT 4 MG TBDP 1 po q6hr PRN Nausea ONDAN SETRON 54961058828 No Longer Active Rich Rosales MD Active ZOFRAN 4 MG TABS 1 tablet every 4 hours ONDANSE JERRELL HCL 25231217534 No Longer Active Rich Rosales MD Active MUCINEX 600 MG [id number] Take 1-2 tablets every 12 hours GUAIFENESIN 85617240018 No Longer Active Rich Rosales MD Activ e BACTRIM 400-80 MG TABS take one po BID SULFAMETHOXAZOLE-TRIMETHOPRIM 56125537406 No Longer Active Abelardo HERNANDEZ Active AZITHROMYCIN 500 MG TABS 1 PO q day x 6 days AZ ITHROMYCIN 19278139251 No Longer Active Tin HERNANDEZ Active ZITHROMAX 250 MG TAB 2 po today, then 1 po q days 2-5 AZITHROMYCIN 67933424345 No Longer Active Arie Casper MD Acti ve ZITHROMAX 250 MG TAB 2 po today, then 1 po q days 2-5 AZITHROMYCIN 04135375092 No Longer Active Arie Casper MD Acti ve AMOXICILLIN 500 MG CAP 1 tab by mouth 3 times daily 20 09/23/20 AMOXICILLIN 92260883850 No Longer Active Arie Casper MD Acti ve BACTRIM DS 800-160 MG TAB 1 tab by mouth twice daily 2 TRIMETHOPRIM-SULFAMETHOXAZOLE 15066766224 No Longer Active Arie Casper MD Active AMOXICILLIN 500 MG TABS take 1 tab po TID AMOXI CILLIN 45036948277 No Longer Active Arie Casper MD Active BACTRIM DS 800-160 MG TAB 1 tab by mouth twice daily 2 BACTRIM DS 800-160 MG TAB 834702 TRIMETHOPRIM-SULFAMETHOXAZOLE Inac tive MUCINEX 600 MG [id number]-[id number] Take 1-2 tablets every 12 hours MUCINEX 600 MG [id number]-POR GUAIFENESIN Inactive ZOFRAN 4 MG TABS 1 tablet every 4 hours ZOFRAN 4 MG TABS 548591 ONDANSETRON HCL Inactive ZOFRAN ODT 4 MG TBDP 1 po q6hr PRN Nausea ZOFRAN ODT 4 MG TBDP 682648 ONDANSETRON Inactive CHLORASEPTIC MAX SORE THROAT 15-10 MG LOZG 1 every 2 hours prn 2 CHLORASEPTIC MAX SORE THROAT 15-10 MG LOZG BENZO ARINA-MENTHOL Inactive COMTREX COLD/COUGH DAY/NITE MS 5-2-10-325 MG MISC 2 caps deja ry 4 hours COMTREX COLD/COUGH DAY/NITE MS 5-2-10-325 MG MIS C [id number] Inactive [facility] TUSSIN COUGH/COLD CF 5-10-100 MG/5ML LIQD 2 teaspoons ev eliud 4 hours [facility] TUSSIN COUGH/COLD CF 5-10-100 MG/5ML LIQD [id number] Inactive IBUPROFEN 800 MG TABS take one po Q 8 hours IBUPROFEN 800 MG TABS IBUPROFEN Inactive VITAMINS 0.8 MG TABS take 1 tab po qday 08/08 VITAMINS 0.8 MG TABS [id number] Inactive TESSALON PERLES 100 MG CAP 1 tablet by mouth 3 times daily 11/01 TESSALON PERLES 100 MG CAP 183509 BENZONATATE Inact zaid AMOXICILLIN 500 MG CAP 1 tab by mouth 3 times daily 08/12/16 AMOXICILLIN 500 MG CAP 685109 AMOXICILLIN Inactive GUAIFENESIN-CODEINE 100-10 MG/5ML ORAL SYRP 2 tsp every 6 hours prn GUAIFENESIN-CODEINE 100-10 MG/5ML ORAL SYRP 707449 GUAIFENESIN-CODEINE Inactive VICKS DAYQUIL SEVERE COLD/FLU TABS 1 tab every 6 hours prn 12/10 VICKS DAYQUIL SEVERE COLD/FLU TABS PHENYLEPHRINE -DM-GG-APAP TABS Inactive BACTRIM DS 800-160 MG TABS 1 twice a day BACTRIM DS 800- 160 MG TABS 650972 SULFAMETHOXAZOLE-TRIMETHOPRIM Inactive PROMETHAZINE HCL 25 MG TABS 1 four times a day as needed for vomiting PROMETHAZINE HCL 25 MG TABS 717944 PROMETHAZINE HCL Inactive ZYRTEC ALLERGY 10 MG CAPS 1 po qd ZY RTEC ALLERGY 10 MG CAPS CETIRIZINE HCL Inactive MACROBID 100 MG CAP 1 cap by mouth twice daily MACROBID 100 MG CAP 9146809 NITROFURANTOIN MONOHYD MACRO Inactive LOMOTIL 2.5-0.025 MG TABS 1 to 2 four times a day as needed for diarrhea LOMOTIL 2.5-0.025 MG TABS 2943523 DIPHENOXYLATE-A TROPINE Inactive CYCLOBENZAPRINE HCL 10 MG TABS 1/2 - 1 tablet by mouth three times daily as needed for muscle spasm/pain CYCLOBENZAP RINE HCL 10 MG TABS 099238 CYCLOBENZAPRINE HCL Inactive AMOXICILLIN 500 MG TABS 2 tabs twice a day for 10 days AMOXICILLIN 500 MG TABS 717215 AMOXICILLIN Inactive LOMOTIL 2.5-0.025 MG TAB 1 to 2 four times a day as needed f or diarrhea LOMOTIL 2.5-0.025 MG TAB 9260685 DIPHENOXYLATE-AT ROPINE Inactive ZOFRAN 4 MG ORAL TABS 1 TAB PO Q 6 HRS PRN NAUSEA 2014 ZOFRAN 4 MG ORAL TABS 349169 ONDANSETRON HCL Inactive CITRATE OF MAGNESIA ORAL SOLN 1 bottle today for constipation 20 07/10/15 CITRATE OF MAGNESIA ORAL SOLN 6843968 MAGNESIUM CITRATE Inactive PROMETHAZINE HCL 12.5 MG TABS 1 tablet by mouth every 6 hours as needed for nausea/vomiting PROMETHAZINE HCL 12.5 MG TABS 484002 PROMETHAZINE HCL Inactive PREDNISONE 20 MG TAB 1 tablet twice daily for 2 d ays, then 1 tablet once daily for 2 days PREDNISONE 20 MG TAB 947651 PREDNISONE Inac tive ALPRAZOLAM 0.25 MG TAB 1 tablet by mouth every 8 hours as ne eded for stress ALPRAZOLAM 0.25 MG TAB 617016 ALPRAZOLAM Inact zaid FLONASE 50 MCG/ACT SUSP 1 spray each nostril twice d aily for allergies and runny nose until gone FLONASE 50 MCG/ACT SUSP 9925998 FLUTICASONE PROPIONATE Inactive PREDNISONE 20 MG TAB 1 tablet daily for airway inflammation 2015 PREDNISONE 20 MG TAB 846167 PREDNISONE Inactive NAPROXEN 500 MG TAB Take 1 tab BID NAPROXEN 500 MG TAB 793067 NAPROXEN Inactive ZOLOFT 50 MG TAB 1 tablet by mouth daily ZOLOFT 50 MG TAB 970519 SERTRALINE HCL Inactive LOMOTIL 2.5-0.025 MG TAB 1 tab po four times a day as needed for diarrhea LOMOTIL 2.5-0.025 MG TAB 1669083 DIPHENOXYLATE-AT ROPINE Inactive CETIRIZINE HCL 10 MG ORAL TABS 1 po qd PRN Allergies 2 CETIRIZINE HCL 10 MG ORAL TABS 2299578 CETIRIZINE HCL Inactive TUSSIONEX PENNKINETIC ER 10-8 MG/5ML LQCR 5ml po q12hr PRN Cough TUSSIONEX PENNKINETIC ER 10-8 MG/5ML LQCR HYDROCOD POLST-CHLORPHEN POLST Inactive NEXPLANON IMPL right arm subcutaneously NEXPLANO N IMPL ETONOGESTREL IMPL Inactive AMOXICILLIN 500 MG TABS take 1 tab po TID AMOXICILLIN 500 MG TABS 609212 AMOXICILLIN Inactive AMOXICILLIN 500 MG CAP 1 tab by mouth 3 times daily 09/23/20 AMOXICILLIN 500 MG CAP 107362 AMOXICILLIN Inactive ZITHROMAX 250 MG TAB 2 po today, then 1 po q days 2-5 ZITHROMAX 250 MG TAB 076496 AZITHROMYCIN Inactive ZITHROMAX 250 MG TAB 2 po today, then 1 po q days 2-5 ZITHROMAX 250 MG TAB 562869 AZITHROMYCIN Inactive AZITHROMYCIN 500 MG TABS 1 PO q day x 6 days 3 AZITHROMYCIN 500 MG TABS 8908329 AZITHROMYCIN Inactive BACTRIM 400-80 MG TABS take one po BID BA CTRIM 400-80 MG TABS 501972 SULFAMETHOXAZOLE-TRIMETHOPRIM Inactive AZITHROMYCIN 250 MG TABS 2 po qd x 1 day, then 1 po qd x 4 days AZITHROMYCIN 250 MG TABS 830005 AZITHROMYCIN Inactiv e PREDNISONE 20 MG TAB 2 tabs daily for 3 days, 1 t ab daily for 3 days, 1/2 tab daily for 2 days PREDNISONE 20 MG TAB 903526 PREDNISON E Inactive ZITHROMAX 250 MG TAB 2 po today, then 1 po q days 2-5 ZITHROMAX 250 MG TAB 888154 AZITHROMYCIN Inactive FLAGYL 500 MG TAB 1 tablet by mouth two times daily 07/11/29 FLAGYL 500 MG TAB 398068 METRONIDAZOLE Inactive AUGMENTIN 875-125 MG TAB 1 tab by mouth twice daily with food 08/12/16 AUGMENTIN 875-125 MG TAB 218154 AMOXICILLIN-POT CLAVULA ANGELO Inactive NAPROXEN 500 MG TAB one tab PO BID NAPROXEN 500 MG TAB 450116 NAPROXEN Inactive PREDNISONE 20 MG TAB 2 tabs daily for 3 days, 1 t ab daily for 3 days, 1/2 tab daily for 2 days PREDNISONE 20 MG TAB 839114 PREDNISON E Inactive AZITHROMYCIN 250 MG TABS 2 po qd x 1 day, then 1 po qd x 4 days AZITHROMYCIN 250 MG TABS 385709 AZITHROMYCIN Inactiv e PREDNISONE 20 MG TAB 2 tabs daily for 3 days, 1 t ab daily for 3 days, 1/2 tab daily for 2 days PREDNISONE 20 MG TAB 933111 PREDNISON E Inactive ZITHROMAX Z-EMIL 250 MG TABS 2 today, then 1 daily for 4 days 201 03/31/18 ZITHROMAX Z-EMIL 250 MG TABS 913381 AZITHROMYCIN Inac tive CEFDINIR 300 MG CAPS [...] for 2 days PREDNISONE 20 MG TAB 036607 PREDNISON E Inactive Advance Directives Directive Description [...] Value Unit Range Description Lab Report: Chlamydia/GC APTIMA/09212 - Lab chlamydia DNA probe NOT DETECTED NOT DETECTED Lab Report: Chlamydia/GC APTIMA/15386 - Microbiology Neisseria gonorrhoeae DNA probe NOT [...] ative Encounters Code Encounter Date Provider Facility CPT-54378 Level 3 Est. Patient 15:40:28 RENAE Wilson APRN [facility] CPT-26611 Level 3 Est. Patient 16:40:36 CDT Arie mcqueen MD [facility] CPT-20358 Level 4 Est. Patient 15:29:22 VENEER JOINTER OPERATOR Arie mcqueen MD [facility] CPT-28928 Level 3 Est. Patient 15:18:16 VENEER JOINTER OPERATOR Jono black [facility] CPT-65042 Level 4 Est. Patient 12:08:40 VENEER JOINTER OPERATOR Steve 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 [employer]RI[employer]INESS [facility] CPT-66516 Level 3 Est. Patient 09:24:42 CDT Steve 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 [employer] [facility] CPT-26509 Level 3 Est. Patient 09:12:56 CDT Arie mcqueen MD [facility]-44505 Level 3 Est. Patient 16:40:54 CDT Jose Zhong MD [facility] CPT-84453 Level 2 Est. Patient 13:01:13 CDT Steve [facility]-01004 Level 3 Est. Patient 11:55:30 VENEER JOINTER OPERATOR Jono black [facility] CPT-41669 Level 3 Est. Patient 09:52:36 VENEER JOINTER OPERATOR Steve CABRERA [facility] CPT-81861 Level 3 Est. Patient 16:25:33 VENEER JOINTER OPERATOR Rich Rosales MD [facility] CPT-70251 Level 3 Est. Patient 20:33:55 CDT Arie mcqueen MD [facility] CPT-85047 Level 3 Est. Patient 14:18:20 CDT Rich Rosales MD [facility] CPT-38276 Level 4 Est. Patient 09:34:31 CDT Arie mcqueen MD [facility]-21622 Level 3 Est. Patient 09:08:55 VENEER JOINTER OPERATOR Liliana vincent MD, PhD [facility] CPT-35926 Level 3 Est. Patient 16:44:07 VENEER JOINTER OPERATOR Arie mcqueen MD [facility] CPT-93333 Level 3 Est. Patient 10:44:27 CDT Arei mcqueen MD [facility] CPT-00152 Level 3 Est. Patient 08:55:41 CDT Jose Zhong MD [facility] CPT-93096 Level 3 Est. Patient 18:37:31 CDT Liliana vincent MD PhD [facility] CPT-39379 Level 3 Est. Patient 14:28:23 CDT Abelardo HERNANDEZ [facility] CPT-44273 Level 3 Est. Patient 15:18:13 VENEER JOINTER OPERATOR Arie mcqueen MD [facility] CPT-90612 Level 3 Est. Patient 10:11:29 VENEER JOINTER OPERATOR Arie mcqueen MD [facility] CPT-28717 Level 3 Est. Patient 10:55:57 VENEER JOINTER OPERATOR Jono black DO [facility] CPT-65822 Level 3 Est. Patient 17:29:05 CDT Arie mcqueen MD [facility] Procedures Code Procedure Name Date Entry Date Standard Desc ription CPT-48279 Nexplanon Removal 15:40:28 CDT CPT-59013 Sono transvag pelvis non OB uterus ovari es cervix - XRAY USE ONLY 08:58:14 VENEER JOINTER OPERATOR CPT-36660 UA w micro - LAB USE ONLY 16:04:56 VENEER JOINTER OPERATOR 2015 CPT-85900 Wet Prep/GEN - LAB USE ONLY 16:04:56 VENEER JOINTER OPERATOR 20 08/10/29 CPT-26375 First Vx - Ix admin via ID I M or jet injects without counseling by physician 16:57:10 CDT CPT-29954 Fluzone Preservative Free Intramuscular Suspension 16:57:10 CDT CPT-J0696 Rocephin 1000 mg (Ceftriaxone) 11:49:23 CDT CPT-J1040 Depo Medrol 80 mg (Methyl Prednisolone A cetate) 11:49:23 CDT CPT-J1100 Decadron 8mg (Dexamethasone) 11:49:23 CDT 2 CPT-76874 Abx/Therapy Injection 11:49:23 CDT CPT-58142 Abx/Therapy Injection 11:49:23 CDT CPT-55481 Abd compl w upright 09:07:26 VENEER JOINTER OPERATOR CPT-01786 Ear Wash 16:12:47 VENEER JOINTER OPERATOR CPT-OV Office Visit 11:12:01 CDT CPT-OV Office Visit 15:30:23 CDT CPT-87822 Sono pelvis non OB uterus ovaries cervix 15:50:44 CDT CPT-16465 Hand comp min 3V 16:42:32 CDT CPT-56871 Abd compl w upright 12:17:01 CDT CPT-96305 Nexplanon Placement 15:07:39 VENEER JOINTER OPERATOR CPT-67295 Removal of IUD 15:07:39 VENEER JOINTER OPERATOR CPT-20980 TB Tubersol 12:09:32 CDT CPT-61075 TB Tubersol 13:55:43 CDT
--- OUTSIDE RECORDS SUMMARY | 2020-03-03 07:36 | XMS REPORT | Clinical Summary ---
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, 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 Urinary frequency Sinusitis - acute 461.9 Active Brii Christianson PRN Acute sinusitis, unspecified Anxiety with depression 300.4 Active Glenn 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 Dysthymic disorder URI 465.9 Active Jono [...] 1/2 tab daily for 2 days PREDNISONE 66581881432 Active Arie Casper MD Active TUSSIONEX PENNKINETIC ER 10-8 MG/5ML LQCR 5ml po q12hr PRN Cough 20 07/02/19 HYDROCOD POLST-CHLORPHEN POLST 64500879478 Active Arie Casper MD Active CETIRIZINE HCL 10 MG ORAL TABS 1 po qd PRN Allergies CETIRIZINE HCL 70970654817 Active Arie Casper MD Active NEXPLANON IMPL right arm subcutaneously ETONOGE STREL IMPL 44788976007 Active Arie Casper MD Active LOMOTIL 2.5-0.025 MG TAB 1 tab po four times a day as needed for diarrhea DIPHENOXYLATE-ATROPINE 85180920788 No Longer Active Fozia Casper MD Active ZOLOFT 50 MG TAB 1 tablet by mouth daily SERTRA LINE HCL 37465981122 No Longer Active Arie Casper MD Active NAPROXEN 500 MG TAB Take 1 tab BID NAPROXEN 332 37659287 No Longer Active Arie Casper MD Active CEFDINIR 300 MG CAPS 1 po BID x 10 days CEFDINI R 87807750415 No Longer Active Brii Larson APRN Active PREDNISONE 20 MG TAB 1 tablet daily for airway inflammation 2015 PREDNISONE 71892015367 No Longer Active Brii Larson APRN Active CEFDINIR 300 MG CAPS 1 po BID x 10 days CEFDINI R 25493679991 No Longer Active Jono Gagnon DO Active FLONASE 50 MCG/ACT SUSP 1 spray each nostril twice d aily for allergies and runny nose until gone FLUTICASONE PROPIONATE No Longe r Active Jono Gagnon DO Active ALPRAZOLAM 0.25 MG TAB 1 tablet by mouth every 8 hours as ne eded for stress ALPRAZOLAM 24209120041 No Longer Active Jono Gagnon DO Active ZITHROMAX Z-EMIL 250 MG TABS 2 today, then 1 daily for 4 days 201 03/31/18 AZITHROMYCIN 71334993449 No Longer Active Arie Casper MD Active PROTONIX 40 MG ORAL TBEC 1 po q a.m. PANTOPRAZO LE SODIUM 04468409977 Active Arie Casper MD Active PREDNISONE 20 MG TAB 2 tabs daily for 3 days, 1 t ab daily for 3 days, 1/2 tab daily for 2 days PREDNISONE 21722787524 No Longer Active Brii Larson APRN Active PREDNISONE 20 MG TAB 1 tablet twice daily for 2 d ays, then 1 tablet once daily for 2 days PREDNISONE 67816075531 No Longer Active Brii Larson APRN Active PROMETHAZINE HCL 12.5 MG TABS 1 tablet by mouth every 6 hours as needed for nausea/vomiting PROMETHAZINE HCL 23490465781 No Longe r Active Jono Gagnon DO Active CITRATE OF MAGNESIA ORAL SOLN 1 bottle today for constipation 20 07/10/15 MAGNESIUM CITRATE 13145461423 No Longer Active Jono Gagnon DO Active ZOFRAN 4 MG ORAL TABS 1 TAB PO Q 6 HRS PRN NAUSEA 2014 ONDANSETRON HCL 13145493397 No Longer Active Brii Larson APRN A ctive LOMOTIL 2.5-0.025 MG TAB 1 to 2 four times a day as needed f or diarrhea DIPHENOXYLATE-ATROPINE 76773313487 No Longer Active January Larson APRN Active AMOXICILLIN 500 MG TABS 2 tabs twice a day for 10 days AMOXICILLIN 46692141546 No Longer Active Brii Larson APRN Acti ve CYCLOBENZAPRINE HCL 10 MG TABS 1/2 - 1 tablet by mouth three times daily as needed for muscle spasm/pain CYCLOBENZAPRINE HCL 23402088178 No Longer Active Arie Casper MD Active LOMOTIL 2.5-0.025 MG TABS 1 to 2 four times a day as needed for diarrhea DIPHENOXYLATE-ATROPINE 69775894136 No Longer Active D freddy Casper MD Active MACROBID 100 MG CAP 1 cap by mouth twice daily NITROFURANTOIN MONOHYD MACRO 53095018004 No Longer Active Arie Casper MD Active ZYRTEC ALLERGY 10 MG CAPS 1 po qd CETIRIZINE HCL 51288478338 No Longer Active Arie Casper MD Active AZITHROMYCIN 250 MG TABS 2 po qd x 1 day, then 1 po qd x 4 days AZITHROMYCIN 79111408112 No Longer Active Jillina Frazell BLEACHING 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 Active PREDNISONE 20 MG TAB 2 tabs daily for 3 days, 1 t ab daily for 3 days, 1/2 tab daily for 2 days PREDNISONE 70398754592 No Longer Active Jillina Frazell 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 Active PROMETHAZINE HCL 25 MG TABS 1 four times a day as needed for vomiting PROMETHAZINE HCL 88055153315 No Longer Active Myrna Roberto MD Active BACTRIM DS 800-160 MG TABS 1 twice a day SULFAMETHOXAZOLE-TRIMETHOPRIM 69372274968 No Longer Active Myrna Roberto MD Active VICKS DAYQUIL SEVERE COLD/FLU TABS 1 tab every 6 hours prn 12/10 [id number] TABS 91112733515 No Longer Active Myrna leigh MD Active GUAIFENESIN-CODEINE 100-10 MG/5ML ORAL SYRP 2 tsp every 6 hours prn GUAIFENESIN-CODEINE 63836764927 No Longer Active Myrna Roberto MD Active NAPROXEN 500 MG TAB one tab PO BID NAPROXEN 332 38645464 No Longer Active Myrna Roberto MD Active AUGMENTIN 875-125 MG TAB 1 tab by mouth twice daily with food 08/12/16 AMOXICILLIN-POT CLAVULANATE 18748104837 No Longer Active Liliana Estrada MD PhD Active AMOXICILLIN 500 MG CAP 1 tab by mouth 3 times daily 08/12/16 AMOXICILLIN 29489036846 No Longer Active Liliana Estrada MD PhD Acti ve TESSALON PERLES 100 MG CAP 1 tablet by mouth 3 times daily 11/01 BENZONATATE 90272420357 No Longer Active Liliana Estrada MD PhD Active FLAGYL 500 MG TAB 1 tablet by mouth two times daily 07/11/29 METRONIDAZOLE 30944242763 No Longer Active Nilam Weber Active ZITHROMAX 250 MG TAB 2 po today, then 1 po q days 2-5 AZITHROMYCIN 91578375923 No Longer Active Arie Casper MD Acti ve VITAMINS 0.8 MG TABS take 1 tab po qday 08/08 [id number] 77836713550 No Longer Active Arie Casper MD Active IBUPROFEN 800 MG TABS take one po Q 8 hours IBU PROFEN 63448650573 No Longer Active Arie Casper MD Active [facility] TUSSIN COUGH/COLD CF 5-10-100 MG/5ML LIQD 2 teaspoons ev eliud 4 hours [id number] 44823236540 No Longer Active Blaine Casper MD Active COMTREX COLD/COUGH DAY/NITE MS 5-2-10-325 MG MISC 2 caps deja ry 4 hours [id number] 76399037560 No Longer Active Landon Casper MD Active CHLORASEPTIC MAX SORE THROAT 15-10 MG LOZG 1 every 2 hours prn 2 BENZOCAINE-MENTHOL 64418072009 No Longer Active Arie Marcelo Active PREDNISONE 20 MG TAB 2 tabs daily for 3 days, 1 t ab daily for 3 days, 1/2 tab daily for 2 days PREDNISONE 17744155004 No Longer Active Jose Zhong MD Active AZITHROMYCIN 250 MG TABS 2 po qd x 1 day, then 1 po qd x 4 days AZITHROMYCIN 75545983500 No Longer Active Jose Zhong MD Active ZOFRAN ODT 4 MG TBDP 1 po q6hr PRN Nausea ONDAN SETRON 22510976109 No Longer Active Rich Rosales MD Active ZOFRAN 4 MG TABS 1 tablet every 4 hours ONDAWANDY ALLAN HCL 78752664474 No Longer Active Rich Rosales MD Active MUCINEX 600 MG [id number] Take 1-2 tablets every 12 hours GUAIFENESIN 17663553983 No Longer Active Rich Rosales MD Activ e BACTRIM 400-80 MG TABS take one po BID SULFAMETHOXAZOLE-TRIMETHOPRIM 02532402896 No Longer Active Abelardo HERNANDEZ Active AZITHROMYCIN 500 MG TABS 1 PO q day x 6 days AZ ITHROMYCIN 87245247745 No Longer Active Tin HERNANDEZ Active ZITHROMAX 250 MG TAB 2 po today, then 1 po q days 2-5 AZITHROMYCIN 22837765662 No Longer Active Arie Casper MD Acti ve ZITHROMAX 250 MG TAB 2 po today, then 1 po q days 2-5 AZITHROMYCIN 84508663204 No Longer Active Arie Casper MD Acti ve AMOXICILLIN 500 MG CAP 1 tab by mouth 3 times daily 09/23/20 AMOXICILLIN 45111923179 No Longer Active Arie Casper MD Acti ve BACTRIM DS 800-160 MG TAB 1 tab by mouth twice daily 2 TRIMETHOPRIM-SULFAMETHOXAZOLE 15162555845 No Longer Active Arie Casper MD Active AMOXICILLIN 500 MG TABS take 1 tab po TID AMOXI CILLIN 80058490353 No Longer Active Arie Casper MD Active BACTRIM DS 800-160 MG TAB 1 tab by mouth twice daily 2 BACTRIM DS 800-160 MG TAB 740728 TRIMETHOPRIM-SULFAMETHOXAZOLE Inac tive MUCINEX 600 MG [id number] Take 1-2 tablets every 12 hours MUCINEX 600 MG [id number] GUAIFENESIN Inactive ZOFRAN 4 MG TABS 1 tablet every 4 hours ZOFRAN 4 MG TABS 011714 ONDANSETRON HCL Inactive ZOFRAN ODT 4 MG TBDP 1 po q6hr PRN Nausea ZOFRAN ODT 4 MG TBDP 143595 ONDANSETRON Inactive CHLORASEPTIC MAX SORE THROAT 15-10 MG LOZG 1 every 2 hours prn 2 /04/30 CHLORASEPTIC MAX SORE THROAT 15-10 MG LOZG BENZO ARINA-MENTHOL Inactive COMTREX COLD/COUGH DAY/NITE MS 5-2-10-325 MG MISC 2 caps deja ry 4 hours COMTREX COLD/COUGH DAY/NITE MS 5-2-10-325 MG MIS C [id number] Inactive [facility] TUSSIN COUGH/COLD CF 5-10-100 MG/5ML LIQD 2 teaspoons ev eliud 4 hours [facility] TUSSIN COUGH/COLD CF 5-10-100 MG/5ML LIQD [id number] Inactive IBUPROFEN 800 MG TABS take one po Q 8 hours IBUPROFEN 800 MG TABS IBUPROFEN Inactive VITAMINS 0.8 MG TABS take 1 tab po qday 08/08 VITAMINS 0.8 MG TABS [id number] Inactive TESSALON PERLES 100 MG CAP 1 tablet by mouth 3 times daily 11/01 TESSALON PERLES 100 MG CAP 759411 BENZONATATE Inact zaid AMOXICILLIN 500 MG CAP 1 tab by mouth 3 times daily 08/12/16 AMOXICILLIN 500 MG CAP 911842 AMOXICILLIN Inactive GUAIFENESIN-CODEINE 100-10 MG/5ML ORAL SYRP 2 tsp every 6 hours prn GUAIFENESIN-CODEINE 100-10 MG/5ML ORAL SYRP 805357 GUAIFENESIN-CODEINE Inactive VICKS DAYQUIL SEVERE COLD/FLU TABS 1 tab every 6 hours prn 12/10 VICKS DAYQUIL SEVERE COLD/FLU TABS PHENYLEPHRINE -DM-GG-APAP TABS Inactive BACTRIM DS 800-160 MG TABS 1 twice a day BACTRIM DS 800- 160 MG TABS 017418 SULFAMETHOXAZOLE-TRIMETHOPRIM Inactive PROMETHAZINE HCL 25 MG TABS 1 four times a day as needed for vomiting PROMETHAZINE HCL 25 MG TABS 285625 PROMETHAZINE HCL Inactive ZYRTEC ALLERGY 10 MG CAPS 1 po qd ZY RTEC ALLERGY 10 MG CAPS CETIRIZINE HCL Inactive MACROBID 100 MG CAP 1 cap by mouth twice daily MACROBID 100 MG CAP 7936698 NITROFURANTOIN MONOHYD MACRO Inactive LOMOTIL 2.5-0.025 MG TABS 1 to 2 four times a day as needed for diarrhea LOMOTIL 2.5-0.025 MG TABS 9870496 DIPHENOXYLATE-A TROPINE Inactive CYCLOBENZAPRINE HCL 10 MG TABS 1/2 - 1 tablet by mouth three times daily as needed for muscle spasm/pain CYCLOBENZAP RINE HCL 10 MG TABS 248042 CYCLOBENZAPRINE HCL Inactive AMOXICILLIN 500 MG TABS 2 tabs twice a day for 10 days AMOXICILLIN 500 MG TABS 777534 AMOXICILLIN Inactive LOMOTIL 2.5-0.025 MG TAB 1 to 2 four times a day as needed f or diarrhea LOMOTIL 2.5-0.025 MG TAB 9648144 DIPHENOXYLATE-AT ROPINE Inactive ZOFRAN 4 MG ORAL TABS 1 TAB PO Q 6 HRS PRN NAUSEA 2014 ZOFRAN 4 MG ORAL TABS 748163 ONDANSETRON HCL Inactive CITRATE OF MAGNESIA ORAL SOLN 1 bottle today for constipation 20 07/10/15 CITRATE OF MAGNESIA ORAL SOLN 6823107 MAGNESIUM CITRATE Inactive PROMETHAZINE HCL 12.5 MG TABS 1 tablet by mouth every 6 hours as needed for nausea/vomiting PROMETHAZINE HCL 12.5 MG TABS 692543 PROMETHAZINE HCL Inactive PREDNISONE 20 MG TAB 1 tablet twice daily for 2 d ays, then 1 tablet once daily for 2 days PREDNISONE 20 MG TAB 182801 PREDNISONE Inac tive ALPRAZOLAM 0.25 MG TAB 1 tablet by mouth every 8 hours as ne eded for stress ALPRAZOLAM 0.25 MG TAB 045792 ALPRAZOLAM Inact zaid FLONASE 50 MCG/ACT SUSP 1 spray each nostril twice d aily for allergies and runny nose until gone FLONASE 50 MCG/ACT SUSP F LUTICASONE PROPIONATE Inactive PREDNISONE 20 MG TAB 1 tablet daily for airway inflammation 2015 PREDNISONE 20 MG TAB 753890 PREDNISONE Inactive NAPROXEN 500 MG TAB Take 1 tab BID NAPROXEN 500 MG TAB 976803 NAPROXEN Inactive ZOLOFT 50 MG TAB 1 tablet by mouth daily ZOLOFT 50 MG TAB 417200 SERTRALINE HCL Inactive LOMOTIL 2.5-0.025 MG TAB 1 tab po four times a day as needed for diarrhea LOMOTIL 2.5-0.025 MG TAB 9893777 DIPHENOXYLATE-AT ROPINE Inactive AMOXICILLIN 500 MG TABS take 1 tab po TID AMOXICILLIN 500 MG TABS 505840 AMOXICILLIN Inactive AMOXICILLIN 500 MG CAP 1 tab by mouth 3 times daily 09/23/20 AMOXICILLIN 500 MG CAP 053898 AMOXICILLIN Inactive ZITHROMAX 250 MG TAB 2 po today, then 1 po q days 2-5 ZITHROMAX 250 MG TAB 9910935 AZITHROMYCIN Inactive ZITHROMAX 250 MG TAB 2 po today, then 1 po q days 2-5 ZITHROMAX 250 MG TAB 4220820 AZITHROMYCIN Inactive AZITHROMYCIN 500 MG TABS 1 PO q day x 6 days 3 AZITHROMYCIN 500 MG TABS 3162835 AZITHROMYCIN Inactive BACTRIM 400-80 MG TABS take one po BID BA CTRIM 400-80 MG TABS 299189 SULFAMETHOXAZOLE-TRIMETHOPRIM Inactive AZITHROMYCIN 250 MG TABS 2 po qd x 1 day, then 1 po qd x 4 days AZITHROMYCIN 250 MG TABS 2150554 AZITHROMYCIN Inactiv e PREDNISONE 20 MG TAB 2 tabs daily for 3 days, 1 t ab daily for 3 days, 1/2 tab daily for 2 days PREDNISONE 20 MG TAB 703809 PREDNISON E Inactive ZITHROMAX 250 MG TAB 2 po today, then 1 po q days 2-5 ZITHROMAX 250 MG TAB 2923274 AZITHROMYCIN Inactive FLAGYL 500 MG TAB 1 tablet by mouth two times daily 07/11/29 FLAGYL 500 MG TAB 047140 METRONIDAZOLE Inactive AUGMENTIN 875-125 MG TAB 1 tab by mouth twice daily with food 20 08/12/16 AUGMENTIN 875-125 MG TAB 764111 AMOXICILLIN-POT CLAVULA ANGELO Inactive NAPROXEN 500 MG TAB one tab PO BID NAPROXEN 500 MG TAB 509616 NAPROXEN Inactive PREDNISONE 20 MG TAB 2 tabs daily for 3 days, 1 t ab daily for 3 days, 1/2 tab daily for 2 days PREDNISONE 20 MG TAB 921104 PREDNISON E Inactive AZITHROMYCIN 250 MG TABS 2 po qd x 1 day, then 1 po qd x 4 days AZITHROMYCIN 250 MG TABS 6990907 AZITHROMYCIN Inactiv e PREDNISONE 20 MG TAB 2 tabs daily for 3 days, 1 t ab daily for 3 days, 1/2 tab daily for 2 days PREDNISONE 20 MG TAB 021376 PREDNISON E Inactive ZITHROMAX Z-EMIL 250 MG TABS 2 today, then 1 daily for 4 days 201 03/31/18 ZITHROMAX Z-EMIL 250 MG TABS 7286318 AZITHROMYCIN Inac tive CEFDINIR 300 MG CAPS 1 po BID x 10 days C EFDINIR 300 MG CAPS 20030127 CEFDINIR Inactive CEFDINIR 300 MG CAPS 1 po BID x 10 days C EFDINIR 300 MG CAPS 982430 CEFDINIR Inactive Advance Directives Directive Description Start [...] Panel - Chemistry sodium, serum 136 mmol/L 235-316 8742/04/26 carbon dioxide, venous blood 29.9 mmol/L 21.0-32 [...] 284 10^3/MM^3 10*3/mm3 142-424 Lab Report: Chlamydia/GC APTIMA/32630 - Lab chlamydia DNA probe NOT DETECTED NOT DETECTED Lab Report: Chlamydia/GC APTIMA/24778 - Microbiology Neisseria gonorrhoeae DNA probe NOT [...] urine, semiquantitative Negative Neg ative Lab Report: [facility], UADIP W/MICRO, AUTO - Chemistry protein, total [...] Negative Encounters Code Encounter Date Provider Facility CPT-48446 Level 3 Est. Patient 16:40:36 CDT Arie mcqueen MD [facility] CPT-68871 Level 4 Est. Patient 15:29:22 DEFENCE INTELLIGENCE ANALYST Arie mcqueen MD [facility] CPT-76540 Level 3 Est. Patient 15:18:16 DEFENCE INTELLIGENCE ANALYST Jono black [facility] CPT-00820 Level 4 Est. Patient 12:08:40 DEFENCE INTELLIGENCE ANALYST [facility] CPT-97451 Level 3 Est. Patient 09:24:42 CDT [facility] CPT-35601 Level 3 Est. Patient 09:12:56 CDT Arie mcqueen MD [facility] CPT-18730 Level 3 Est. Patient 16:40:54 CDT Jose Zhong MD [facility] CPT-86633 Level 2 Est. Patient 13:01:13 CDT [facility] CPT-86032 Level 3 Est. Patient 11:55:30 DEFENCE INTELLIGENCE ANALYST Jono black [facility] CPT-57688 Level 3 Est. Patient 09:52:36 DEFENCE INTELLIGENCE ANALYST Steve RICK [facility] CPT-80776 Level 3 Est. Patient 16:25:33 DEFENCE INTELLIGENCE ANALYST Rich Rosales MD [facility]-67021 Level 3 Est. Patient 20:33:55 CDT Arie mcqueen MD [facility]-27863 Level 3 Est. Patient 14:18:20 CDT Rich Rosales MD [facility]-91402 Level 4 Est. Patient 09:34:31 CDT Arie mcqueen MD [facility]-82900 Level 3 Est. Patient 09:08:55 DEFENCE INTELLIGENCE ANALYST Liliana vincent MD [facility]-27195 Level 3 Est. Patient 16:44:07 DEFENCE INTELLIGENCE ANALYST Arie mcqueen MD [facility]-71528 Level 3 Est. Patient 10:44:27 CDT Arie mcqueen MD [facility]-94462 Level 3 Est. Patient 08:55:41 CDT Jose Zhong MD [facility]-09461 Level 3 Est. Patient 18:37:31 CDT Liliana vincent MD PhD [facility]-23142 Level 3 Est. Patient 14:28:23 CDT Abelardo HERNANDEZ [facility]-31957 Level 3 Est. Patient 15:18:13 DEFENCE INTELLIGENCE ANALYST Arie mcqueen MD [facility]-37028 Level 3 Est. Patient 10:11:29 DEFENCE INTELLIGENCE ANALYST Arie mcqueen MD [facility]-68072 Level 3 Est. Patient 10:55:57 DEFENCE INTELLIGENCE ANALYST Jono black DO [facility] CPT-14735 Level 3 Est. Patient 17:29:05 CDT Arie mcqueen MD [facility] Procedures Code Procedure Name Date Entry Date Standard Desc ription CPT-38068 Sono transvag pelvis non OB uterus ovari es cervix - XRAY USE ONLY 08:58:14 DEFENCE INTELLIGENCE ANALYST CPT-18948 UA w micro - LAB USE ONLY 16:04:56 DEFENCE INTELLIGENCE ANALYST 2015 CPT-82971 Wet Prep/GEN - LAB USE ONLY 16:04:56 DEFENCE INTELLIGENCE ANALYST 20 08/10/29 CPT-74950 First Vx - Ix admin via ID I M or jet injects without counseling by physician 16:57:10 CDT CPT-55412 Fluzone Preservative Free Intramuscular Suspension 16:57:10 CDT CPT-J0696 Rocephin 1000 mg (Ceftriaxone) 11:49:23 CDT CPT-J1040 Depo Medrol 80 mg (Methyl Prednisolone A cetate) 11:49:23 CDT CPT-J1100 Decadron 8mg (Dexamethasone) 11:49:23 CDT 2 CPT-07979 Abx/Therapy Injection 11:49:23 CDT CPT-27683 Abx/Therapy Injection 11:49:23 CDT CPT-42531 Abd compl w upright 09:07:26 DEFENCE INTELLIGENCE ANALYST CPT-45267 Ear Wash 16:12:47 DEFENCE INTELLIGENCE ANALYST CPT-OV Office Visit 11:12:01 CDT CPT-OV Office Visit 15:30:23 CDT CPT-96803 Sono pelvis non OB uterus ovaries cervix 15:50:44 CDT CPT-81405 Hand comp min 3V 16:42:32 CDT CPT-82027 Abd compl w upright 12:17:01 CDT CPT-23451 Nexplanon Placement 15:07:39 DEFENCE INTELLIGENCE ANALYST CPT-54493 Removal of IUD 15:07:39 DEFENCE INTELLIGENCE ANALYST CPT-72005 TB Tubersol 12:09:32 CDT CPT-43291 TB Tubersol 13:55:43 CDT
--- OUTSIDE RECORDS SUMMARY | 2020-03-03 07:36 | XMS REPORT | Clinical Summary ---
Author Author Admin, Diamante Marcelo Organization [facility] Address Unknown Phone Unavailable Allergies, [...] TAB one tab PO BID NAPROXEN 332 [id number] Active Myrna Roberto MD Active LOMOTIL 2.5-0.025 MG TABS 1 to 2 four times a day as needed for diarrhea DIPHENOXYLATE-ATROPINE 38557815146 Active Rich mcintosh MD Active PROMETHAZINE HCL 25 MG TABS 1 four times a day as needed for vomiting PROMETHAZINE HCL 45578740306 Active Rich Rosales MD Active BACTRIM DS 800-160 MG TABS 1 twice a day SULFAMETHOXAZOLE-TRIMETHOPRIM 79755404212 Active Rich Rosales MD Active AUGMENTIN 875-125 MG TAB 1 tab by mouth twice daily with food 20 08/12/16 AMOXICILLIN-POT CLAVULANATE 71848201837 No Longer Active Liliana Estrada MD PhD Active CYCLOBENZAPRINE HCL 10 MG TABS 1/2 - 1 tablet by mouth three times daily as needed for muscle spasm/pain CYCLOBENZAPRINE HCL 89200 423034 Active Liliana Estrada MD PhD Active GUAIFENESIN-CODEINE 100-10 MG/5ML ORAL SYRP 2 tsp every 6 hours prn GUAIFENESIN-CODEINE 14798527377 Active Liliana Estrada MD PhD Active VICKS DAYQUIL SEVERE COLD/FLU TABS 1 tab every 6 hours prn FLLYONIOXFBNY-RB-XI-APAP TABS 79250681362 Active Liliana Estrada MD PhD Active AMOXICILLIN 500 MG CAP 1 tab by mouth 3 times daily 08/12/16 AMOXICILLIN 25054035157 No Longer Active Liliana Estrada MD PhD Acti ve TESSALON PERLES 100 MG CAP 1 tablet by mouth 3 times daily 11/01 BENZONATATE 25669395171 No Longer Active Liliana Estrada MD PhD Active FLAGYL 500 MG TAB 1 tablet by mouth two times daily 07/11/29 METRONIDAZOLE 96970776110 No Longer Active Nilam Weber Active ZITHROMAX 250 MG TAB 2 po today, then 1 po q days 2-5 AZITHROMYCIN 57264740270 No Longer Active Arie Casper MD Acti ve VITAMINS 0.8 MG TABS take 1 tab po qday 08/08 [id number]-DXJ-MU-FA 94929139876 No Longer Active Arie Casper MD Active IBUPROFEN 800 MG TABS take one po Q 8 hours IBU PROFEN 71856425766 No Longer Active Arie Casper MD Active [facility]S TUSSIN COUGH/COLD CF 5-10-100 MG/5ML LIQD 2 teaspoons ev eliud 4 hours BVQRFRDMXPIYZ-DE-TX 11111705427 No Longer Active Blaine Casper MD Active COMTREX COLD/COUGH DAY/NITE MS 5-2-10-325 MG MISC 2 caps deja ry 4 hours YAFIAAFNV-YOO-FO-APAP 66354722946 No Longer Active Da aleksandra Casper MD Active CHLORASEPTIC MAX SORE THROAT 15-10 MG LOZG 1 every 2 hours prn 2 BENZOCAINE-MENTHOL 25457321157 No Longer Active Arie Marcelo Active PREDNISONE 20 MG TAB 2 tabs daily for 3 days, 1 t ab daily for 3 days, 1/2 tab daily for 2 days PREDNISONE 84231421083 No Longer Active Jose Zhong MD Active AZITHROMYCIN 250 MG TABS 2 po qd x 1 day, then 1 po qd x 4 days AZITHROMYCIN 55165986648 No Longer Active Jose Zhong MD Active ZOFRAN ODT 4 MG TBDP 1 po q6hr PRN Nausea ONDAN SETRON 58319597782 No Longer Active Rich Rosales MD Active ZOFRAN 4 MG TABS 1 tablet every 4 hours ONDANSE JERRELL HCL 82021707788 No Longer Active Rich Rosales MD Active MUCINEX 600 MG HY87O-HPT Take 1-2 tablets every 12 hours GUAIFENESIN 27920289961 No Longer Active Rich Rosales MD Activ e BACTRIM 400-80 MG TABS take one po BID SULFAMETHOXAZOLE-TRIMETHOPRIM 55856465682 No Longer Active Abelardo HERNANDEZ Active AZITHROMYCIN 500 MG TABS 1 PO q day x 6 days AZ ITHROMYCIN 11275849327 No Longer Active Tin HERNANDEZ Active ZITHROMAX 250 MG TAB 2 po today, then 1 po q days 2-5 AZITHROMYCIN 28053710536 No Longer Active Arie Casper MD Acti ve ZITHROMAX 250 MG TAB 2 po today, then 1 po q days 2-5 AZITHROMYCIN 48423811255 No Longer Active Arie Casper MD Acti ve AMOXICILLIN 500 MG CAP 1 tab by mouth 3 times daily 09/23/20 AMOXICILLIN 68332815814 No Longer Active Arie Casper MD Acti ve BACTRIM DS 800-160 MG TAB 1 tab by mouth twice daily 2 TRIMETHOPRIM-SULFAMETHOXAZOLE 44731463973 No Longer Active Arie Casper MD Active AMOXICILLIN 500 MG TABS take 1 tab po TID AMOXI CILLIN 46534376961 No Longer Active Arie Casper MD Active BACTRIM DS 800-160 MG TAB 1 tab by mouth twice daily 2 BACTRIM DS 800-160 MG TAB TRIMETHOPRIM-SULFAMETHOXAZOLE Inac tive MUCINEX 600 MG [id number] Take 1-2 tablets every 12 hours MUCINEX 600 MG [id number] GUAIFENESIN Inactive ZOFRAN 4 MG TABS 1 tablet every 4 hours ZOFRAN 4 MG TABS 669324 ONDANSETRON HCL Inactive ZOFRAN ODT 4 MG TBDP 1 po q6hr PRN Nausea ZOFRAN ODT 4 MG TBDP 542332 ONDANSETRON Inactive CHLORASEPTIC MAX SORE THROAT 15-10 MG LOZG 1 every 2 hours prn 2 014/04/30 CHLORASEPTIC MAX SORE THROAT 15-10 MG LOZG BENZO ARINA-MENTHOL Inactive COMTREX COLD/COUGH DAY/NITE MS 5-2-10-325 MG MISC 2 caps deja ry 4 hours COMTREX COLD/COUGH DAY/NITE MS 5-2-10-325 MG MIS C [id number]-APAP Inactive CVS TUSSIN COUGH/COLD CF 5-10-100 MG/5ML LIQD 2 teaspoons ev eliud 4 hours CVS TUSSIN COUGH/COLD CF 5-10-100 MG/5ML LIQD [id number] Inactive IBUPROFEN 800 MG TABS take one po Q 8 hours IBUPROFEN 800 MG TABS 608043 IBUPROFEN Inactive VITAMINS 0.8 MG TABS take 1 tab po qday 08/08 VITAMINS 0.8 MG TABS LITUNMRP-UFK-CU-FA Inactive TESSALON PERLES 100 MG CAP 1 tablet by mouth 3 times daily 11/01 TESSALON PERLES 100 MG CAP 976737 BENZONATATE Inact zaid AMOXICILLIN 500 MG CAP 1 tab by mouth 3 times daily 08/12/16 AMOXICILLIN 500 MG CAP 395053 AMOXICILLIN Inactive AMOXICILLIN 500 MG TABS take 1 tab po TID AMOXICILLIN 500 MG TABS 878502 AMOXICILLIN Inactive AMOXICILLIN 500 MG CAP 1 tab by mouth 3 times daily 09/23/20 AMOXICILLIN 500 MG CAP 610789 AMOXICILLIN Inactive ZITHROMAX 250 MG TAB 2 po today, then 1 po q days 2-5 ZITHROMAX 250 MG TAB 7292538 AZITHROMYCIN Inactive ZITHROMAX 250 MG TAB 2 po today, then 1 po q days 2-5 ZITHROMAX 250 MG TAB 9505346 AZITHROMYCIN Inactive AZITHROMYCIN 500 MG TABS 1 PO q day x 6 days 3 AZITHROMYCIN 500 MG TABS 1714982 AZITHROMYCIN Inactive BACTRIM 400-80 MG TABS take one po BID BA CTRIM 400-80 MG TABS 018676 SULFAMETHOXAZOLE-TRIMETHOPRIM Inactive AZITHROMYCIN 250 MG TABS 2 po qd x 1 day, then 1 po qd x 4 days AZITHROMYCIN 250 MG TABS 9002590 AZITHROMYCIN Inactiv e PREDNISONE 20 MG TAB 2 tabs daily for 3 days, 1 t ab daily for 3 days, 1/2 tab daily for 2 days PREDNISONE 20 MG TAB 898102 PREDNISON E Inactive ZITHROMAX 250 MG TAB 2 po today, then 1 po q days 2-5 ZITHROMAX 250 MG TAB 4850988 AZITHROMYCIN Inactive FLAGYL 500 MG TAB 1 tablet by mouth two times daily 07/11/29 FLAGYL 500 MG TAB 745745 METRONIDAZOLE Inactive AUGMENTIN 875-125 MG TAB 1 tab by mouth twice daily with food 20 08/12/16 AUGMENTIN 875-125 MG TAB 832615 AMOXICILLIN-POT CLAVULA ANGELO Inactive Advance Directives Directive [...] mm Lab Report: CBC W/DIFF - Hematology red blood cell distribution width 13.5 % 11 .6-14.8 platelet count 214 10^3/MM^3 10*3/mm3 859-729 1165/01/08 erythrocyte (RBC) count 4.92 10^6/MM^3 10*6/mm3 4.04-5.4 8 lymphocytes as percent of blood leukocytes 28.4 % 20.5-51.1 monocytes as percent of blood leukocytes 12.7 % 1.7-9.3 neutrophils as percent of blood leukocytes 54.8 % 42.2-75.2 leukocyte count, blood 4.4 10^3/MM^3 10*3/mm3 4.6-10.2 mean corpuscular hemoglobin concentration, RBC 33.2 G/DL % 31.8-35.4 mean corpuscular hemoglobin, RBC 27.5 pg 27. 0-31.2 mean corpuscular volume, RBC 83 fL 80-97 hematocrit, blood 40.7 % 36.0-46.0 hemoglobin, blood 13.5 g/dL 12.0-16.0 Lab Report: Chlamydia/GC APTIMA/[id number] - Lab chlamydia DNA probe NOT DETECTED NOT DETECTED Lab Report: Chlamydia/GC APTIMA/66483 - Microbiology Neisseria gonorrhoeae DNA probe NOT [...] ative Encounters Code Encounter Date Provider Facility CPT-20347 Level 3 Est. Patient 14:18:20 CDT Rich Rosales MD [facility] CPT-78633 Level 4 Est. Patient 09:34:31 CDT Arie mcqueen MD [facility] CPT-80416 Level 3 Est. 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 Patient 16:44:07 AGRICULTURAL EQUIPMENT SALES MANAGER Arie mcqueen MD [facility] CPT-81243 Level 3 Est. Patient 10:44:27 CDT Arie mcqueen MD [facility] CPT-96874 Level 3 Est. Patient 08:55:41 CDT Jose Zhong MD [facility] CPT-67784 Level 3 Est. Patient 18:37:31 CDT Liliana vincent MD PhD [facility] CPT-79023 Level 3 Est. Patient 14:28:23 CDT Abelardo HERNANDEZ [facility] CPT-07421 Level 3 Est. Patient 15:18:13 A[employer]IC[employer]URAL EQUIPMENT SALES MANAGER Arie mcqueen MD [facility] CPT-55500 Level 3 Est. Patient 10:11:29 AGRICULTURAL EQUIPMENT SALES MANAGER Arie mcqueen MD [facility] CPT-38941 Level 3 Est. Patient 10:55:57 [employer]URAL EQUIPMENT SALES MANAGER Jono black DO [facility] CPT-25232 Level 3 Est. Patient 17:29:05 CDT Arie mcqueen MD [facility] Procedures Code Procedure Name Date Entry Date Standard Desc ription CPT-OV Office Visit 15:30:23 CDT CPT-44922 Sono pelvis non OB uterus ovaries cervix 15:50:44 CDT CPT-47663 Hand comp min 3V 16:42:32 CDT CPT-85450 Abd compl w upright 12:17:01 CDT CPT-58242 Nexplanon Placement 15:07:39 A[employer]ICULTURAL EQUIPMENT SALES MANAGER CPT-16740 Removal of IUD 15:07:39 A[employer]ICULTURAL EQUIPMENT SALES MANAGER CPT-20767 TB Tubersol 12:09:32 CDT CPT-77804 TB Tubersol 13:55:43 CDT
--- OUTSIDE RECORDS SUMMARY | 2020-03-03 07:37 | XMS REPORT | Clinical Summary ---
Author Author Admin, Diamante Marcelo Organization [facility] Address Unknown Phone Unavailable Allergies, Adverse Reactions, [...] Instructions Start Date Stop Date Generic Name [facility] Status Provider Patient Instruction MACROBID 100 MG CAP 1 cap by mouth twice daily NITROFURANTOIN MONOHYD MACRO 72896271173 Active Myrna Roberto MD Active PROMETHAZINE HCL 25 MG TABS 1 four times a day as needed for vomiting PROMETHAZINE HCL 12534273702 No Longer Active Myrna Roberto MD Active BACTRIM DS 800-160 MG TABS 1 twice a day SULFAMETHOXAZOLE-TRIMETHOPRIM 89531906308 No Longer Active Myrna Roberto MD Active VICKS DAYQUIL SEVERE COLD/FLU TABS 1 tab every 6 hours prn 12/10 AFWADLXHJAIMU-QZ-YT-APAP TABS 87415793176 No Longer Active Myrna leigh MD Active GUAIFENESIN-CODEINE 100-10 MG/5ML ORAL SYRP 2 tsp every 6 hours prn GUAIFENESIN-CODEINE 89475837354 No Longer Active Myrna oRberto MD Active NAPROXEN 500 MG TAB one tab PO BID NAPROXEN 332 64536171 No Longer Active Myrna Roberto MD Active LOMOTIL 2.5-0.025 MG TABS 1 to 2 four times a day as needed for diarrhea DIPHENOXYLATE-ATROPINE 58261458839 Active Rich mcintosh MD Active AUGMENTIN 875-125 MG TAB 1 tab by mouth twice daily with food 20 08/12/16 AMOXICILLIN-POT CLAVULANATE 26204189335 No Longer Active Liliana Estrada MD PhD Active CYCLOBENZAPRINE HCL 10 MG TABS 1/2 - 1 tablet by mouth three times daily as needed for muscle spasm/pain CYCLOBENZAPRINE HCL 49926 381723 Active Liliana Estrada MD PhD Active AMOXICILLIN 500 MG CAP 1 tab by mouth 3 times daily 08/12/16 AMOXICILLIN 69381629871 No Longer Active Liliana Estrada MD PhD Acti ve TESSALON PERLES 100 MG CAP 1 tablet by mouth 3 times daily 11/01 BENZONATATE 76610473509 No Longer Active Liliana Estrada MD PhD Active FLAGYL 500 MG TAB 1 tablet by mouth two times daily 07/11/29 METRONIDAZOLE 76970889549 No Longer Active Nilam Rakatie Active ZITHROMAX 250 MG TAB 2 po today, then 1 po q days 2-5 AZITHROMYCIN 84889483431 No Longer Active Arie Casper MD Acti ve VITAMINS 0.8 MG TABS take 1 tab po qday 08/08 AZHGRRQL-GDU-LH-FA 13445250317 No Longer Active Arie Casper MD Active IBUPROFEN 800 MG TABS take one po Q 8 hours IBU PROFEN 70367810792 No Longer Active Arie Casper MD Active [facility] TUSSIN COUGH/COLD CF 5-10-100 MG/5ML LIQD 2 teaspoons ev eliud 4 hours PDQZKOZHBYHSR-OO-TG 37026054938 No Longer Active Blaine Casper MD Active COMTREX COLD/COUGH DAY/NITE MS 5-2-10-325 MG MISC 2 caps deja ry 4 hours XJVPFKGFI-AUB-JT-APAP 75343943636 No Longer Active Landon Casper MD Active CHLORASEPTIC MAX SORE THROAT 15-10 MG LOZG 1 every 2 hours prn 2 BENZOCAINE-MENTHOL 00162329832 No Longer Active Arie Marcelo Active PREDNISONE 20 MG TAB 2 tabs daily for 3 days, 1 t ab daily for 3 days, 1/2 tab daily for 2 days PREDNISONE 85623330202 No Longer Active Jose Zhong MD Active AZITHROMYCIN 250 MG TABS 2 po qd x 1 day, then 1 po qd x 4 days AZITHROMYCIN 57385596109 No Longer Active Jose Zhong MD Active ZOFRAN ODT 4 MG TBDP 1 po q6hr PRN Nausea ONDAN SETRON 86142207731 No Longer Active Rich Rosales MD Active ZOFRAN 4 MG TABS 1 tablet every 4 hours ONDANSE JERRELL HCL 93171354965 No Longer Active Rich Rosales MD Active MUCINEX 600 MG ZE90I-YPM Take 1-2 tablets every 12 hours GUAIFENESIN 41629920144 No Longer Active Rich Rosales MD Activ e BACTRIM 400-80 MG TABS take one po BID SULFAMETHOXAZOLE-TRIMETHOPRIM 49166636058 No Longer Active Abelardo HERNANDEZ Active AZITHROMYCIN 500 MG TABS 1 PO q day x 6 days AZ ITHROMYCIN 88649575892 No Longer Active Tin HERNANDEZ Active ZITHROMAX 250 MG TAB 2 po today, then 1 po q days 2-5 AZITHROMYCIN 58475846173 No Longer Active Arie Casper MD Acti ve ZITHROMAX 250 MG TAB 2 po today, then 1 po q days 2-5 AZITHROMYCIN 60704245260 No Longer Active Arie Casper MD Acti ve AMOXICILLIN 500 MG CAP 1 tab by mouth 3 times daily 09/23/20 AMOXICILLIN 78383341086 No Longer Active Arie Casper MD Acti ve BACTRIM DS 800-160 MG TAB 1 tab by mouth twice daily 2 TRIMETHOPRIM-SULFAMETHOXAZOLE 75056445894 No Longer Active Arie Casper MD Active AMOXICILLIN 500 MG TABS take 1 tab po TID AMOXI CILLIN 29361274850 No Longer Active Arie Casper MD Active BACTRIM DS 800-160 MG TAB 1 tab by mouth twice daily 2 BACTRIM DS 800-160 MG TAB TRIMETHOPRIM-SULFAMETHOXAZOLE Inac tive MUCINEX 600 MG [id number]-HSK Take 1-2 tablets every 12 hours MUCINEX 600 MG [id number]-GDP GUAIFENESIN Inactive ZOFRAN 4 MG TABS 1 tablet every 4 hours ZOFRAN 4 MG TABS 159942 ONDANSETRON HCL Inactive ZOFRAN ODT 4 MG TBDP 1 po q6hr PRN Nausea ZOFRAN ODT 4 MG TBDP 508490 ONDANSETRON Inactive CHLORASEPTIC MAX SORE THROAT 15-10 MG LOZG 1 every 2 hours prn 2 /04/30 CHLORASEPTIC MAX SORE THROAT 15-10 MG LOZG BENZO ARINA-MENTHOL Inactive COMTREX COLD/COUGH DAY/NITE MS 5-2-10-325 MG MISC 2 caps deja ry 4 hours COMTREX COLD/COUGH DAY/NITE MS 5-2-10-325 MG MIS C [id number]-FW-APAP Inactive [facility]S TUSSIN COUGH/COLD CF 5-10-100 MG/5ML LIQD 2 teaspoons ev eliud 4 hours [facility]S TUSSIN COUGH/COLD CF 5-10-100 MG/5ML LIQD [id number] Inactive IBUPROFEN 800 MG TABS take one po Q 8 hours IBUPROFEN 800 MG TABS 626315 IBUPROFEN Inactive VITAMINS 0.8 MG TABS take 1 tab po qday 08/08 VITAMINS 0.8 MG TABS [id number]-[id number]-FA Inactive TESSALON PERLES 100 MG CAP 1 tablet by mouth 3 times daily 11/01 TESSALON PERLES 100 MG CAP 496733 BENZONATATE Inact zaid AMOXICILLIN 500 MG CAP 1 tab by mouth 3 times daily 08/12/16 AMOXICILLIN 500 MG CAP 052284 AMOXICILLIN Inactive GUAIFENESIN-CODEINE 100-10 MG/5ML ORAL SYRP 2 tsp every 6 hours prn GUAIFENESIN-CODEINE 100-10 MG/5ML ORAL SYRP 144066 GUAIFENESIN-CODEINE Inactive VICKS DAYQUIL SEVERE COLD/FLU TABS 1 tab every 6 hours prn 12/10 VICKS DAYQUIL SEVERE COLD/FLU TABS PHENYLEPHRINE -DM-GG-APAP TABS Inactive BACTRIM DS 800-160 MG TABS 1 twice a day BACTRIM DS 800- 160 MG TABS SULFAMETHOXAZOLE-TRIMETHOPRIM Inactive PROMETHAZINE HCL 25 MG TABS 1 four times a day as needed for vomiting PROMETHAZINE HCL 25 MG TABS 189705 PROMETHAZINE HCL Inactive AMOXICILLIN 500 MG TABS take 1 tab po TID AMOXICILLIN 500 MG TABS 701403 AMOXICILLIN Inactive AMOXICILLIN 500 MG CAP 1 tab by mouth 3 times daily 09/23/20 AMOXICILLIN 500 MG CAP 717399 AMOXICILLIN Inactive ZITHROMAX 250 MG TAB 2 po today, then 1 po q days 2-5 ZITHROMAX 250 MG TAB 5772050 AZITHROMYCIN Inactive ZITHROMAX 250 MG TAB 2 po today, then 1 po q days 2-5 ZITHROMAX 250 MG TAB 1820069 AZITHROMYCIN Inactive AZITHROMYCIN 500 MG TABS 1 PO q day x 6 days 3 AZITHROMYCIN 500 MG TABS 1631420 AZITHROMYCIN Inactive BACTRIM 400-80 MG TABS take one po BID BA CTRIM 400-80 MG TABS 944012 SULFAMETHOXAZOLE-TRIMETHOPRIM Inactive AZITHROMYCIN 250 MG TABS 2 po qd x 1 day, then 1 po qd x 4 days AZITHROMYCIN 250 MG TABS 2209026 AZITHROMYCIN Inactiv e PREDNISONE 20 MG TAB 2 tabs daily for 3 days, 1 t ab daily for 3 days, 1/2 tab daily for 2 days PREDNISONE 20 MG TAB 921428 PREDNISON E Inactive ZITHROMAX 250 MG TAB 2 po today, then 1 po q days 2-5 ZITHROMAX 250 MG TAB 5978170 AZITHROMYCIN Inactive FLAGYL 500 MG TAB 1 tablet by mouth two times daily 07/11/29 FLAGYL 500 MG TAB 517660 METRONIDAZOLE Inactive AUGMENTIN 875-125 MG TAB 1 tab by mouth twice daily with food 20 08/12/16 AUGMENTIN 875-125 MG TAB 670561 AMOXICILLIN-POT CLAVULA ANGELO Inactive NAPROXEN 500 MG TAB one tab PO BID NAPROXEN 500 MG TAB 187014 NAPROXEN Inactive Advance Directives Directive Description Start [...] 214 10^3/MM^3 10*3/mm3 142-424 Lab Report: Chlamydia/GC APTIMA/69331 - Lab chlamydia DNA probe NOT DETECTED NOT DETECTED Lab Report: Chlamydia/GC APTIMA/92143 - Microbiology Neisseria gonorrhoeae DNA probe NOT DETECTED NO T DETECTED Lab Report: HIV-1/2 Agn/Darcy/17841, HEPAT ITIS PANEL, ACUTE W/REFLE - Chemistry hepatitis B surface antigen NON-REACTIVE NON-RE ACTIVE Lab Report: LILIA INFLUENZA A/B - [place] rapid flu test Negative Negative;Positive Lab Report: UADIP W/MICRO, AUTO - Chemis try protein, total urine random Negative mg/dL Negative RBC, urine, dipstick 2+ Negative protein, [...] 5.0-8.5 Encounters Code Encounter Date Provider Facility CPT-65504 Level 3 Est. Patient 14:18:20 CDT Rich Rosales MD [facility] CPT-86842 Level 4 Est. Patient 09:34:31 CDT Arie mcqueen MD [facility] CPT-92875 Level 3 Est. Patient 09:08:55 MIS DIRECTOR Liliana vincent MD PhD [facility] CPT-88171 Level 3 Est. Patient 16:44:07 MIS DIRECTOR Arie mcqueen MD [facility] CPT-91770 Level 3 Est. Patient 10:44:27 CDT Arie mcqueen MD [facility] CPT-69363 Level 3 Est. Patient 08:55:41 CDT Jose Zhong MD [facility] CPT-43989 Level 3 Est. Patient 18:37:31 CDT Liliana vincent MD PhD [facility] CPT-89584 Level 3 Est. Patient 14:28:23 CDT Abelardo marroquin PA [facility] CPT-18258 Level 3 Est. Patient 15:18:13 MIS DIRECTOR Arie mcqueen MD [facility] CPT-40764 Level 3 Est. Patient 10:11:29 MIS DIRECTOR Arie mcqueen MD [facility] CPT-21075 Level 3 Est. Patient 10:55:57 MIS DIRECTOR Jono black DO [facility] CPT-54233 Level 3 Est. Patient 17:29:05 CDT Arie mcqueen MD [facility] Procedures Code Procedure Name Date Entry Date Standard Desc ription CPT-OV Office Visit 11:12:01 CDT CPT-OV Office Visit 15:30:23 CDT CPT-80026 Sono pelvis non OB uterus ovaries cervix 15:50:44 CDT CPT-15655 Hand comp min 3V 16:42:32 CDT CPT-56181 Abd compl w upright 12:17:01 CDT CPT-20791 Nexplanon Placement 15:07:39 MIS DIRECTOR CPT-04197 Removal of IUD 15:07:39 MIS DIRECTOR CPT-93976 TB Tubersol 12:09:32 CDT CPT-02790 TB Tubersol 13:55:43 CDT
--- OUTSIDE RECORDS SUMMARY | 2020-03-03 07:37 | XMS REPORT | Clinical Summary ---
Author Author Admin, Diamante Marcelo Organization [employer] Address Unknown Phone Unavailable Allergies, Adverse Reactions, [...] site Abdominal pain 789.00 Active Biri Larson APRN Abdominal pain, unspecified site Diarrhea [...] by hypodermic needle Post-op care V67.00 Active Mryna Roberto MD Follow-up examination following surgery, unspecified [...] cute pharyngitis Nausea 787.02 Active Brii Larson INCLUSION SPECIALIST Nausea alone URI 465.9 Active Jono Gagnon [...] 1 po q a.m. PANTOPRAZO LE SODIUM 24524406861 Active Jose Zhong MD Active PREDNISONE 20 MG TAB 2 tabs daily for 3 days, 1 t ab daily for 3 days, 1/2 tab daily for 2 days PREDNISONE 93424937809 No Longer Active Brii Larson APRN Active PREDNISONE 20 MG TAB 1 tablet twice daily for 2 d ays, then 1 tablet once daily for 2 days PREDNISONE 60917562320 No Longer Active Brii Larson APRN Active FLONASE 50 MCG/ACT SUSP 1 spray each nostril twice d aily for allergies and runny nose until gone FLUTICASONE PROPIONATE Active Jono Gagnon DO Active PROMETHAZINE HCL 12.5 MG TABS 1 tablet by mouth every 6 hours as needed for nausea/vomiting PROMETHAZINE HCL 15124453697 No Longe r Active Jono Gagnon DO Active CITRATE OF MAGNESIA ORAL SOLN 1 bottle today for constipation 20 07/10/15 MAGNESIUM CITRATE 45227088021 No Longer Active Jono Gagnon DO Active ZOFRAN 4 MG ORAL TABS 1 TAB PO Q 6 HRS PRN NAUSEA 2014 ONDANSETRON HCL 10422942513 No Longer Active Brii Larson APRN A ctive LOMOTIL 2.5-0.025 MG TAB 1 to 2 four times a day as needed f or diarrhea DIPHENOXYLATE-ATROPINE 40114581427 No Longer Active January Larson APRN Active AMOXICILLIN 500 MG TABS 2 tabs twice a day for 10 days AMOXICILLIN 74436328587 No Longer Active Brii Larson APRN Acti ve NEXPLANON IMPL ETONOGESTREL IMPL 80376814920 Active Rich Rosales MD Active CYCLOBENZAPRINE HCL 10 MG TABS 1/2 - 1 tablet by mouth three times daily as needed for muscle spasm/pain CYCLOBENZAPRINE HCL 30998457917 No Longer Active Arie Casper MD Active LOMOTIL 2.5-0.025 MG TABS 1 to 2 four times a day as needed for diarrhea DIPHENOXYLATE-ATROPINE 52305363352 No Longer Active Fozia Casper MD Active MACROBID 100 MG CAP 1 cap by mouth twice daily NITROFURANTOIN MONOHYD MACRO 30852285573 No Longer Active Arie Casper MD Active ZYRTEC ALLERGY 10 MG CAPS 1 po qd CETIRIZINE HCL 14093021493 No Longer Active Arie Casper MD Active AZITHROMYCIN 250 MG TABS 2 po qd x 1 day, then 1 po qd x 4 days AZITHROMYCIN 42127579234 No Longer Active Jillina Franaomi CABRERA Active PREDNISONE 20 MG TAB 2 tabs daily for 3 days, 1 t ab daily for 3 days, 1/2 tab daily for 2 days PREDNISONE 51066916913 No Longer Active Jillina Frazell RICK Active PROMETHAZINE HCL 25 MG TABS 1 four times a day as needed for vomiting PROMETHAZINE HCL 01712846815 No Longer Active Myrna Roberto MD Active BACTRIM DS 800-160 MG TABS 1 twice a day SULFAMETHOXAZOLE-TRIMETHOPRIM 82264536403 No Longer Active Myrna Roberto MD Active VICKS DAYQUIL SEVERE COLD/FLU TABS 1 tab every 6 hours prn 12/10 [id number] TABS 14118241790 No Longer Active Myrna leigh MD Active GUAIFENESIN-CODEINE 100-10 MG/5ML ORAL SYRP 2 tsp every 6 hours prn GUAIFENESIN-CODEINE 87025821044 No Longer Active Myrna Roberto MD Active NAPROXEN 500 MG TAB one tab PO BID NAPROXEN 332 91097748 No Longer Active Myrna Roberto MD Active AUGMENTIN 875-125 MG TAB 1 tab by mouth twice daily with food 20 08/12/16 AMOXICILLIN-POT CLAVULANATE 75648869863 No Longer Active Liliana Estrada MD PhD Active AMOXICILLIN 500 MG CAP 1 tab by mouth 3 times daily 08/12/16 AMOXICILLIN 34517315010 No Longer Active Liliana Estrada MD PhD Acti ve TESSALON PERLES 100 MG CAP 1 tablet by mouth 3 times daily 11/01 BENZONATATE 53557912086 No Longer Active Liliana Estrada MD PhD Active FLAGYL 500 MG TAB 1 tablet by mouth two times daily 07/11/29 METRONIDAZOLE 30676203348 No Longer Active Nilam Weber Active ZITHROMAX 250 MG TAB 2 po today, then 1 po q days 2-5 AZITHROMYCIN 43431825683 No Longer Active Arie Casper MD Acti ve VITAMINS 0.8 MG TABS take 1 tab po qday 08/08 [id number] 07017233218 No Longer Active Arie Casper MD Active IBUPROFEN 800 MG TABS take one po Q 8 hours IBU PROFEN 05884523467 No Longer Active Arie Casper MD Active [facility] TUSSIN COUGH/COLD CF 5-10-100 MG/5ML LIQD 2 teaspoons ev eliud 4 hours [id number] 83590697559 No Longer Active Blaine Casper MD Active COMTREX COLD/COUGH DAY/NITE MS 5-2-10-325 MG MISC 2 caps deja ry 4 hours [id number]-APAP 31615339257 No Longer Active Da aleksandra Casper MD Active CHLORASEPTIC MAX SORE THROAT 15-10 MG LOZG 1 every 2 hours prn 2 /04/30 BENZOCAINE-MENTHOL 39116987096 No Longer Active Arie Marcelo Active PREDNISONE 20 MG TAB 2 tabs daily for 3 days, 1 t ab daily for 3 days, 1/2 tab daily for 2 days PREDNISONE 21603794262 No Longer Active Jose Zhong MD Active AZITHROMYCIN 250 MG TABS 2 po qd x 1 day, then 1 po qd x 4 days AZITHROMYCIN 02676268936 No Longer Active Jose Zhong MD Active ZOFRAN ODT 4 MG TBDP 1 po q6hr PRN Nausea ONDAN SETRON 41678645164 No Longer Active iRch Rosales MD Active ZOFRAN 4 MG TABS 1 tablet every 4 hours ONDANSE JERRELL HCL 75652364299 No Longer Active Rich Rosales MD Active MUCINEX 600 MG [id number] Take 1-2 tablets every 12 hours GUAIFENESIN 17888548522 No Longer Active Rich Rosales MD Activ e BACTRIM 400-80 MG TABS take one po BID SULFAMETHOXAZOLE-TRIMETHOPRIM 38092364408 No Longer Active Abelardo HERNANDEZ Active AZITHROMYCIN 500 MG TABS 1 PO q day x 6 days AZ ITHROMYCIN 69759978085 No Longer Active Tin HERNANDEZ Active ZITHROMAX 250 MG TAB 2 po today, then 1 po q days 2-5 AZITHROMYCIN 35932679935 No Longer Active Arie Casper MD Acti ve ZITHROMAX 250 MG TAB 2 po today, then 1 po q days 2-5 AZITHROMYCIN 14589176605 No Longer Active Arie Casper MD Acti ve AMOXICILLIN 500 MG CAP 1 tab by mouth 3 times daily 20 09/23/20 AMOXICILLIN 22263233686 No Longer Active Arie Casper MD Acti ve BACTRIM DS 800-160 MG TAB 1 tab by mouth twice daily 2 TRIMETHOPRIM-SULFAMETHOXAZOLE 30124379976 No Longer Active Arie Casper MD Active AMOXICILLIN 500 MG TABS take 1 tab po TID AMOXI CILLIN 12489807113 No Longer Active Arie Casper MD Active BACTRIM DS 800-160 MG TAB 1 tab by mouth twice daily 2 BACTRIM DS 800-160 MG TAB 110794 TRIMETHOPRIM-SULFAMETHOXAZOLE Inac tive MUCINEX 600 MG [id number] Take 1-2 tablets every 12 hours MUCINEX 600 MG [id number] GUAIFENESIN Inactive ZOFRAN 4 MG TABS 1 tablet every 4 hours ZOFRAN 4 MG TABS 544480 ONDANSETRON HCL Inactive ZOFRAN ODT 4 MG TBDP 1 po q6hr PRN Nausea ZOFRAN ODT 4 MG TBDP 849007 ONDANSETRON Inactive CHLORASEPTIC MAX SORE THROAT 15-10 MG LOZG 1 every 2 hours prn 2 /04/30 CHLORASEPTIC MAX SORE THROAT 15-10 MG LOZG BENZO ARINA-MENTHOL Inactive COMTREX COLD/COUGH DAY/NITE MS 5-2-10-325 MG MISC 2 caps deja ry 4 hours COMTREX COLD/COUGH DAY/NITE MS 5-2-10-325 MG MIS C [id number]-IGE-QS-APAP Inactive [facility] TUSSIN COUGH/COLD CF 5-10-100 MG/5ML LIQD 2 teaspoons ev eliud 4 hours [facility] TUSSIN COUGH/COLD CF 5-10-100 MG/5ML LIQD [id number] Inactive IBUPROFEN 800 MG TABS take one po Q 8 hours IBUPROFEN 800 MG TABS IBUPROFEN Inactive VITAMINS 0.8 MG TABS take 1 tab po qday 08/08 VITAMINS 0.8 MG TABS [id number]-EVV-WV-FA Inactive TESSALON PERLES 100 MG CAP 1 tablet by mouth 3 times daily 11/01 TESSALON PERLES 100 MG CAP 337091 BENZONATATE Inact zaid AMOXICILLIN 500 MG CAP 1 tab by mouth 3 times daily 08/12/16 AMOXICILLIN 500 MG CAP 045798 AMOXICILLIN Inactive GUAIFENESIN-CODEINE 100-10 MG/5ML ORAL SYRP 2 tsp every 6 hours prn GUAIFENESIN-CODEINE 100-10 MG/5ML ORAL SYRP 463551 GUAIFENESIN-CODEINE Inactive VICKS DAYQUIL SEVERE COLD/FLU TABS 1 tab every 6 hours prn 12/10 VICKS DAYQUIL SEVERE COLD/FLU TABS PHENYLEPHRINE -DM-GG-APAP TABS Inactive BACTRIM DS 800-160 MG TABS 1 twice a day BACTRIM DS 800- 160 MG TABS 550935 SULFAMETHOXAZOLE-TRIMETHOPRIM Inactive PROMETHAZINE HCL 25 MG TABS 1 four times a day as needed for vomiting PROMETHAZINE HCL 25 MG TABS 715017 PROMETHAZINE HCL Inactive ZYRTEC ALLERGY 10 MG CAPS 1 po qd ZY RTEC ALLERGY 10 MG CAPS CETIRIZINE HCL Inactive MACROBID 100 MG CAP 1 cap by mouth twice daily MACROBID 100 MG CAP 8815754 NITROFURANTOIN MONOHYD MACRO Inactive LOMOTIL 2.5-0.025 MG TABS 1 to 2 four times a day as needed for diarrhea LOMOTIL 2.5-0.025 MG TABS 7415090 DIPHENOXYLATE-A TROPINE Inactive CYCLOBENZAPRINE HCL 10 MG TABS 1/2 - 1 tablet by mouth three times daily as needed for muscle spasm/pain CYCLOBENZAP RINE HCL 10 MG TABS 464516 CYCLOBENZAPRINE HCL Inactive AMOXICILLIN 500 MG TABS 2 tabs twice a day for 10 days AMOXICILLIN 500 MG TABS 184570 AMOXICILLIN Inactive LOMOTIL 2.5-0.025 MG TAB 1 to 2 four times a day as needed f or diarrhea LOMOTIL 2.5-0.025 MG TAB 4401241 DIPHENOXYLATE-AT ROPINE Inactive ZOFRAN 4 MG ORAL TABS 1 TAB PO Q 6 HRS PRN NAUSEA 2014 ZOFRAN 4 MG ORAL TABS 583735 ONDANSETRON HCL Inactive CITRATE OF MAGNESIA ORAL SOLN 1 bottle today for constipation 20 07/10/15 CITRATE OF MAGNESIA ORAL SOLN 4761151 MAGNESIUM CITRATE Inactive PROMETHAZINE HCL 12.5 MG TABS 1 tablet by mouth every 6 hours as needed for nausea/vomiting PROMETHAZINE HCL 12.5 MG TABS 773780 PROMETHAZINE HCL Inactive PREDNISONE 20 MG TAB 1 tablet twice daily for 2 d ays, then 1 tablet once daily for 2 days PREDNISONE 20 MG TAB 184111 PREDNISONE Inac tive AMOXICILLIN 500 MG TABS take 1 tab po TID AMOXICILLIN 500 MG TABS 679300 AMOXICILLIN Inactive AMOXICILLIN 500 MG CAP 1 tab by mouth 3 times daily 09/23/20 AMOXICILLIN 500 MG CAP 266080 AMOXICILLIN Inactive ZITHROMAX 250 MG TAB 2 po today, then 1 po q days 2-5 ZITHROMAX 250 MG TAB 0360141 AZITHROMYCIN Inactive ZITHROMAX 250 MG TAB 2 po today, then 1 po q days 2-5 ZITHROMAX 250 MG TAB 6489600 AZITHROMYCIN Inactive AZITHROMYCIN 500 MG TABS 1 PO q day x 6 days 3 AZITHROMYCIN 500 MG TABS 0972885 AZITHROMYCIN Inactive BACTRIM 400-80 MG TABS take one po BID BA CTRIM 400-80 MG TABS 765164 SULFAMETHOXAZOLE-TRIMETHOPRIM Inactive AZITHROMYCIN 250 MG TABS 2 po qd x 1 day, then 1 po qd x 4 days AZITHROMYCIN 250 MG TABS 1461836 AZITHROMYCIN Inactiv e PREDNISONE 20 MG TAB 2 tabs daily for 3 days, 1 t ab daily for 3 days, 1/2 tab daily for 2 days PREDNISONE 20 MG TAB 422892 PREDNISON E Inactive ZITHROMAX 250 MG TAB 2 po today, then 1 po q days 2-5 ZITHROMAX 250 MG TAB 3721350 AZITHROMYCIN Inactive FLAGYL 500 MG TAB 1 tablet by mouth two times daily 07/11/29 FLAGYL 500 MG TAB 528119 METRONIDAZOLE Inactive AUGMENTIN 875-125 MG TAB 1 tab by mouth twice daily with food 20 08/12/16 AUGMENTIN 875-125 MG TAB 163702 AMOXICILLIN-POT CLAVULA ANGELO Inactive NAPROXEN 500 MG TAB one tab PO BID NAPROXEN 500 MG TAB 186812 NAPROXEN Inactive PREDNISONE 20 MG TAB 2 tabs daily for 3 days, 1 t ab daily for 3 days, 1/2 tab daily for 2 days PREDNISONE 20 MG TAB 395428 PREDNISON E Inactive AZITHROMYCIN 250 MG TABS 2 po qd x 1 day, then 1 po qd x 4 days AZITHROMYCIN 250 MG TABS 9406221 AZITHROMYCIN Inactiv e PREDNISONE 20 MG TAB 2 tabs daily for 3 days, 1 t ab daily for 3 days, 1/2 tab daily for 2 days PREDNISONE 20 MG TAB 609988 PREDNISON E Inactive Advance Directives Directive Description [...] Panel - Chemistry sodium, serum 136 mmol/L 191-132 1659/04/26 carbon dioxide, venous blood 29.9 mmol/L 21.0-32 [...] 284 10^3/MM^3 10*3/mm3 142-424 Lab Report: Chlamydia/GC APTIMA/[id number] - Lab chlamydia DNA probe NOT DETECTED NOT DETECTED Lab Report: Chlamydia/GC APTIMA/[id number] - Microbiology Neisseria gonorrhoeae DNA probe NOT DETECTED NO T DETECTED Lab Report: Comp. Metabolic Panel - Chem istry sodium, serum 139 mmol/L 807-533 6696/12/15 carbon dioxide, venous blood 30.2 mmol/L 21.0-32 .0 potassium, serum 3.4 mmol/L 3.5-5.2 chloride, serum 101 mmol/L 98-107 blood glucose 92 mg/dL 65-110 urea nitrogen, blood 5 mg/dL 7-18 creatinine, serum 0.81 mg/dL 0.55-1.30 alanine aminotransferase (SGPT), serum 20 U/L 12-78 aspartate aminotransferase (SGOT), serum 10 U/L 15-37 calcium, serum 8.4 mg/dL 8.5-10.1 bilirubin, serum, total 0.60 mg/dL 0.00-1.00 Lab Report: HIV-1/2 Agn/Darcy/70997, HEPAT ITIS PANEL, ACUTE W/REFLE - Chemistry [...] Negative Encounters Code Encounter Date Provider Facility CPT-40494 Level 3 Est. Patient 16:40:54 CDT Jose Zhong MD [facility] CPT-56020 Level 2 Est. Patient 13:01:13 CDT Steve INCLUSION SPECIALIST [facility] CPT-15429 Level 3 Est. Patient 11:55:30 [employer] Jono black DO [facility] CPT-85632 Level 3 Est. Patient 09:52:36 [employer] Steve INCLUSION SPECIALIST [facility] CPT-32629 Level 3 Est. Patient 16:25:33 COMMERCIAL L[employer]ER Rich Rosales MD [facility] CPT-22922 Level 3 Est. Patient 20:33:55 CDT Arie mcqueen MD [facility] CPT-01796 Level 3 Est. Patient 14:18:20 CDT Rich Rosales MD [facility] CPT-15698 Level 4 Est. Patient 09:34:31 CDT Arie mcqueen MD [facility] CPT-39948 Level 3 Est. Patient 09:08:55 [employer]ERCIAL [employer]ER Liliana vincent MD PhD [facility] CPT-61769 Level 3 Est. Patient 16:44:07 COMMERCIAL LENDER Arie mcqueen MD [facility] CPT-90967 Level 3 Est. Patient 10:44:27 CDT Arie mcqueen MD [facility] CPT-78758 Level 3 Est. Patient 08:55:41 CDT Jose Zhong MD [facility] CPT-01970 Level 3 Est. Patient 18:37:31 CDT Liliana vincent MD PhD [facility] CPT-08550 Level 3 Est. Patient 14:28:23 CDT Abelardo HERNANDEZ [facility] CPT-38199 Level 3 Est. Patient 15:18:13 [employer]ERCIAL [employer]ER Arie mcqueen MD [facility] CPT-12648 Level 3 Est. Patient 10:11:29 COMMERCIAL LENDER Arie mcqueen MD [facility] CPT-90540 Level 3 Est. Patient 10:55:57 COMMERCIAL LENDER Jono black DO [facility] CPT-39393 Level 3 Est. Patient 17:29:05 CDT Arie mcqueen MD [facility] Procedures Code Procedure Name Date Entry Date Standard Desc ription CPT-73631 Abd compl w upright 09:07:26 [employer]CIAL LEND[employer] CPT-09982 Ear Wash 16:12:47 [employer]ERCIAL LENDER CPT-OV Office Visit 11:12:01 CDT CPT-OV Office Visit 15:30:23 CDT CPT-15720 Sono pelvis non OB uterus ovaries cervix 15:50:44 CDT CPT-90064 Hand comp min 3V 16:42:32 CDT CPT-59301 Abd compl w upright 12:17:01 CDT CPT-21272 Nexplanon Placement 15:07:39 COMMERCIAL LENDER CPT-63898 Removal of IUD 15:07:39 COMMERCIAL LENDER CPT-72732 TB Tubersol 12:09:32 CDT CPT-94021 TB Tubersol 13:55:43 CDT
--- OUTSIDE RECORDS SUMMARY | 2020-03-03 07:37 | XMS REPORT | Clinical Summary ---
Author Author Admin, Diamante Marcelo Organization [facility] Address Unknown Phone Unavailable Allergies, [...] CAPS 1 po qd CETIRIZINE HC L 92408561259 Active Jillina Frazell SNOW REMOVAL/PLOWING Active AZITHROMYCIN 250 MG TABS 2 po qd x 1 day, then 1 po qd x 4 days AZITHROMYCIN 90609434365 Active Jillina Frazell SNOW REMOVAL/PLOWING A ctive PREDNISONE 20 MG TAB 2 tabs daily for 3 days, 1 t ab daily for 3 days, 1/2 tab daily for 2 days PREDNISONE 09524120436 Active Jessica Heaton SNOW REMOVAL/PLOWING Active MACROBID 100 MG CAP 1 cap by mouth twice daily NITROFURANTOIN MONOHYD MACRO 42823350633 Active Myrna Roberto MD Active PROMETHAZINE HCL 25 MG TABS 1 four times a day as needed for vomiting PROMETHAZINE HCL 44049067865 No Longer Active Myrna Roberto MD Active BACTRIM DS 800-160 MG TABS 1 twice a day SULFAMETHOXAZOLE-TRIMETHOPRIM 09737797746 No Longer Active Myrna Roberto MD Active VICKS DAYQUIL SEVERE COLD/FLU TABS 1 tab every 6 hours prn 12/10 CIXXHFENDAVAO-YP-PJ-APAP TABS 43883743992 No Longer Active Myrna leigh MD Active GUAIFENESIN-CODEINE 100-10 MG/5ML ORAL SYRP 2 tsp every 6 hours prn GUAIFENESIN-CODEINE 32868003615 No Longer Active Myrna Roberto MD Active NAPROXEN 500 MG TAB one tab PO BID NAPROXEN 332 68395268 No Longer Active Myrna Roberto MD Active LOMOTIL 2.5-0.025 MG TABS 1 to 2 four times a day as needed for diarrhea DIPHENOXYLATE-ATROPINE 85544370739 Active Rich mcintosh MD Active AUGMENTIN 875-125 MG TAB 1 tab by mouth twice daily with food 08/12/16 AMOXICILLIN-POT CLAVULANATE 04664060448 No Longer Active Liliana Estrada MD PhD Active CYCLOBENZAPRINE HCL 10 MG TABS 1/2 - 1 tablet by mouth three times daily as needed for muscle spasm/pain CYCLOBENZAPRINE HCL 21495 784054 Active Liliana Estrada MD PhD Active AMOXICILLIN 500 MG CAP 1 tab by mouth 3 times daily 08/12/16 AMOXICILLIN 19731409152 No Longer Active Liliana Estrada MD PhD Acti ve TESSALON PERLES 100 MG CAP 1 tablet by mouth 3 times daily 11/01 BENZONATATE 94941146734 No Longer Active Liliana Estrada MD PhD Active FLAGYL 500 MG TAB 1 tablet by mouth two times daily 20 07/11/29 METRONIDAZOLE 79595432960 No Longer Active Nilam Weber Active ZITHROMAX 250 MG TAB 2 po today, then 1 po q days 2-5 AZITHROMYCIN 94575543709 No Longer Active Arie Casper MD Acti ve VITAMINS 0.8 MG TABS take 1 tab po qday 08/08 [id number]-FES-PZ-FA 91739516344 No Longer Active Arie Casper MD Active IBUPROFEN 800 MG TABS take one po Q 8 hours IBU PROFEN 80175872864 No Longer Active Arie Casper MD Active [facility] TUSSIN COUGH/COLD CF 5-10-100 MG/5ML LIQD 2 teaspoons ev eliud 4 hours NUXFAQFPIDMOT-UQ-YD 07376732654 No Longer Active Blaine Casper MD Active COMTREX COLD/COUGH DAY/NITE MS 5-2-10-325 MG MISC 2 caps deja ry 4 hours [id number]-PP-APAP 18831471209 No Longer Active Da vimason Casper MD Active CHLORASEPTIC MAX SORE THROAT 15-10 MG LOZG 1 every 2 hours prn 2 BENZOCAINE-MENTHOL 57396076092 No Longer Active Arie Marcelo Active PREDNISONE 20 MG TAB 2 tabs daily for 3 days, 1 t ab daily for 3 days, 1/2 tab daily for 2 days PREDNISONE 81409935329 No Longer Active Jose Zhong MD Active AZITHROMYCIN 250 MG TABS 2 po qd x 1 day, then 1 po qd x 4 days AZITHROMYCIN 17277891452 No Longer Active Jose Zhong MD Active ZOFRAN ODT 4 MG TBDP 1 po q6hr PRN Nausea ONDAN SETRON 59589545281 No Longer Active Rich Rosales MD Active ZOFRAN 4 MG TABS 1 tablet every 4 hours ONDANSE JERRELL HCL 12771055746 No Longer Active Rich Rosales MD Active MUCINEX 600 MG [id number] Take 1-2 tablets every 12 hours GUAIFENESIN 11191164571 No Longer Active Rich Rosales MD Activ e BACTRIM 400-80 MG TABS take one po BID SULFAMETHOXAZOLE-TRIMETHOPRIM 61358568657 No Longer Active Abelardo HERNANDEZ Active AZITHROMYCIN 500 MG TABS 1 PO q day x 6 days AZ ITHROMYCIN 16343452345 No Longer Active Tin HERNANDEZ Active ZITHROMAX 250 MG TAB 2 po today, then 1 po q days 2-5 AZITHROMYCIN 95100234092 No Longer Active Arie Casper MD Acti ve ZITHROMAX 250 MG TAB 2 po today, then 1 po q days 2-5 AZITHROMYCIN 03403209895 No Longer Active Arie Casper MD Acti ve AMOXICILLIN 500 MG CAP 1 tab by mouth 3 times daily 20 09/23/20 AMOXICILLIN 32389216814 No Longer Active Arie Casper MD Acti ve BACTRIM DS 800-160 MG TAB 1 tab by mouth twice daily 2 TRIMETHOPRIM-SULFAMETHOXAZOLE 75676532289 No Longer Active Arie Casper MD Active AMOXICILLIN 500 MG TABS take 1 tab po TID AMOXI CILLIN 45971765414 No Longer Active Arie Casper MD Active BACTRIM DS 800-160 MG TAB 1 tab by mouth twice daily 2 BACTRIM DS 800-160 MG TAB TRIMETHOPRIM-SULFAMETHOXAZOLE Inac tive MUCINEX 600 MG [id number] Take 1-2 tablets every 12 hours MUCINEX 600 MG [id number] GUAIFENESIN Inactive ZOFRAN 4 MG TABS 1 tablet every 4 hours ZOFRAN 4 MG TABS 707918 ONDANSETRON HCL Inactive ZOFRAN ODT 4 MG TBDP 1 po q6hr PRN Nausea ZOFRAN ODT 4 MG TBDP 364054 ONDANSETRON Inactive CHLORASEPTIC MAX SORE THROAT 15-10 MG LOZG 1 every 2 hours prn 2 /04/30 CHLORASEPTIC MAX SORE THROAT 15-10 MG LOZG BENZO ARINA-MENTHOL Inactive COMTREX COLD/COUGH DAY/NITE MS 5-2-10-325 MG MISC 2 caps deja ry 4 hours COMTREX COLD/COUGH DAY/NITE MS 5-2-10-325 MG MIS C [id number]-[id number]-APAP Inactive [facility] TUSSIN COUGH/COLD CF 5-10-100 MG/5ML LIQD 2 teaspoons ev eliud 4 hours [facility] TUSSIN COUGH/COLD CF 5-10-100 MG/5ML LIQD [id number] Inactive IBUPROFEN 800 MG TABS take one po Q 8 hours IBUPROFEN 800 MG TABS 276175 IBUPROFEN Inactive VITAMINS 0.8 MG TABS take 1 tab po qday 08/08 VITAMINS 0.8 MG TABS [id number] Inactive TESSALON PERLES 100 MG CAP 1 tablet by mouth 3 times daily 11/01 TESSALON PERLES 100 MG CAP 632007 BENZONATATE Inact zaid AMOXICILLIN 500 MG CAP 1 tab by mouth 3 times daily 08/12/16 AMOXICILLIN 500 MG CAP 594142 AMOXICILLIN Inactive GUAIFENESIN-CODEINE 100-10 MG/5ML ORAL SYRP 2 tsp every 6 hours prn GUAIFENESIN-CODEINE 100-10 MG/5ML ORAL SYRP 232870 GUAIFENESIN-CODEINE Inactive VICKS DAYQUIL SEVERE COLD/FLU TABS 1 tab every 6 hours prn 12/10 VICKS DAYQUIL SEVERE COLD/FLU TABS PHENYLEPHRINE -DM-GG-APAP TABS Inactive BACTRIM DS 800-160 MG TABS 1 twice a day BACTRIM DS 800- 160 MG TABS SULFAMETHOXAZOLE-TRIMETHOPRIM Inactive PROMETHAZINE HCL 25 MG TABS 1 four times a day as needed for vomiting PROMETHAZINE HCL 25 MG TABS 261883 PROMETHAZINE HCL Inactive AMOXICILLIN 500 MG TABS take 1 tab po TID AMOXICILLIN 500 MG TABS 607295 AMOXICILLIN Inactive AMOXICILLIN 500 MG CAP 1 tab by mouth 3 times daily 09/23/20 AMOXICILLIN 500 MG CAP 503374 AMOXICILLIN Inactive ZITHROMAX 250 MG TAB 2 po today, then 1 po q days 2-5 ZITHROMAX 250 MG TAB 1083661 AZITHROMYCIN Inactive ZITHROMAX 250 MG TAB 2 po today, then 1 po q days 2-5 ZITHROMAX 250 MG TAB 8937186 AZITHROMYCIN Inactive AZITHROMYCIN 500 MG TABS 1 PO q day x 6 days 3 AZITHROMYCIN 500 MG TABS 7442281 AZITHROMYCIN Inactive BACTRIM 400-80 MG TABS take one po BID BA CTRIM 400-80 MG TABS 450837 SULFAMETHOXAZOLE-TRIMETHOPRIM Inactive AZITHROMYCIN 250 MG TABS 2 po qd x 1 day, then 1 po qd x 4 days AZITHROMYCIN 250 MG TABS 4522857 AZITHROMYCIN Inactiv e PREDNISONE 20 MG TAB 2 tabs daily for 3 days, 1 t ab daily for 3 days, 1/2 tab daily for 2 days PREDNISONE 20 MG TAB 833249 PREDNISON E Inactive ZITHROMAX 250 MG TAB 2 po today, then 1 po q days 2-5 ZITHROMAX 250 MG TAB 2790423 AZITHROMYCIN Inactive FLAGYL 500 MG TAB 1 tablet by mouth two times daily 07/11/29 FLAGYL 500 MG TAB 581032 METRONIDAZOLE Inactive AUGMENTIN 875-125 MG TAB 1 tab by mouth twice daily with food 08/12/16 AUGMENTIN 875-125 MG TAB 832705 AMOXICILLIN-POT CLAVULA ANGELO Inactive NAPROXEN 500 MG TAB one tab PO BID NAPROXEN 500 MG TAB 451676 NAPROXEN Inactive Advance Directives Directive Description Start [...] 214 10^3/MM^3 10*3/mm3 142-424 Lab Report: Chlamydia/GC APTIMA/31042 - Lab chlamydia DNA probe NOT DETECTED NOT DETECTED Lab Report: Chlamydia/GC APTIMA/58562 - Microbiology Neisseria gonorrhoeae DNA probe NOT DETECTED NO T DETECTED Lab Report: HIV-1/2 Agn/Darcy/65906, HEPAT ITIS PANEL, ACUTE W/REFLE - Chemistry [...] 5.0-8.5 Encounters Code Encounter Date Provider Facility CPT-43476 Level 3 Est. Patient 14:18:20 CDT Rich Rosales MD [facility] CPT-24951 Level 4 Est. Patient 09:34:31 CDT Arie mcqueen MD [facility] CPT-53295 Level 3 Est. Patient 09:08:55 NURSE MIDWIFE/CLINICAL INSTRUCTOR Liliana vincent MD PhD [facility] CPT-54453 Level 3 Est. Patient 16:44:07 NURSE MIDWIFE/CLINICAL INSTRUCTOR Arie mcqueen MD [facility] CPT-03012 Level 3 Est. Patient 10:44:27 CDT Arie mcqueen MD [facility] CPT-82411 Level 3 Est. Patient 08:55:41 CDT Jose Zhong MD [facility] CPT-04189 Level 3 Est. Patient 18:37:31 CDT Liliana vincent MD PhD [facility] CPT-35527 Level 3 Est. Patient 14:28:23 CDT Abelardo HERNANDEZ [facility] CPT-28007 Level 3 Est. Patient 15:18:13 NURSE MIDWIFE/CLINICAL INSTRUCTOR Arie mcqueen MD [facility] CPT-75971 Level 3 Est. Patient 10:11:29 NURSE MIDWIFE/CLINICAL INSTRUCTOR Arie mcqueen MD [facility] CPT-10767 Level 3 Est. Patient 10:55:57 NURSE MIDWIFE/CLINICAL INSTRUCTOR Jono black DO [facility] CPT-12661 Level 3 Est. Patient 17:29:05 CDT Arie mcqueen MD [facility] Procedures Code Procedure Name Date Entry Date Standard Desc ription CPT-OV Office Visit 11:12:01 CDT CPT-OV Office Visit 15:30:23 CDT CPT-26422 Sono pelvis non OB uterus ovaries cervix 15:50:44 CDT CPT-59591 Hand comp min 3V 16:42:32 CDT CPT-36678 Abd compl w upright 12:17:01 CDT CPT-38406 Nexplanon Placement 15:07:39 NURSE MIDWIFE/CLINICAL INSTRUCTOR CPT-17327 Removal of IUD 15:07:39 NURSE MIDWIFE/CLINICAL INSTRUCTOR CPT-91108 TB Tubersol 12:09:32 CDT CPT-49919 TB Tubersol 13:55:43 CDT
--- OUTSIDE RECORDS SUMMARY | 2020-03-03 07:38 | XMS REPORT | Clinical Summary ---
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 Vaginal bleeding 623.8 Active Arie Casper MD Other specified noninflammatory disorders of vagina Influenza like illness 487.1 Active Jose Mcwilliams MD Influenza with other respiratory manifestations Sinusitis 473.9 Active Jessica Heaton [employer]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 Unspecified sinusitis (chronic) BREAST CANCER ICD-V16.3 Inactive [...] q12hr PRN Cough HYDROCOD POLST-CHLORPHEN POLST 5 [id number] No Longer Active Myrna Roberto MD Active ZITHROMAX Z-EMIL 250 MG TABS Take two tablets today and then 1 tablet daily for 4 days AZITHROMYCIN 75163797394 No Longer Active Flaco Rosales MD Active GUAIFENESIN DM 400-20 MG ORAL TABLET 1 pill by mouth t wice daily, if needed for cough DEXTROMETHORPHAN-GUAIFENESIN 20248596119 No Longer Active Rich Rosales MD Active CEFDINIR 300 MG ORAL CAPSULE 1 po BID x 10 days CEFDINIR 72297164051 No Longer Active Jessica Heaton APRN Active CHERATUSSIN AC 100-10 MG/5ML ORAL SYRUP 1 tsp by mouth every 4 hours as needed for cough GUAIFENESIN-CODEINE 61711627862 No Longe r Active Jessica Heaton APRN Active TAMIFLU 75 MG ORAL CAPSULE 1 po BID x 5 days 0 OSELTAMIVIR PHOSPHATE 98740063061 No Longer Active Jose Zhong MD Activ e ZITHROMAX Z-EMIL 250 MG ORAL TABLET 2 today, then 1 daily for 4 d ays AZITHROMYCIN 91712033851 No Longer Active Arie Casper MD Active PROTONIX 40 MG ORAL TABLET DELAYED RELEASE 1 po q a.m. 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 CETIRIZINE HCL 10 MG ORAL TABLET 1 po qd PRN Allergies CETIRIZINE HCL 01487040725 No Longer Active Brii Russ APRN Activ e PREDNISONE 20 MG ORAL TABLET 2 tabs daily for 3 days, 1 tab daily for 3 days, 1/2 tab daily for 2 days PREDNISONE 27685139249 No Longer Active Arie Casper MD Active LOMOTIL 2.5-0.025 MG ORAL TABLET 1 tab po four times a day as needed for diarrhea DIPHENOXYLATE-ATROPINE 56795362961 No Lo nger Active Arie Casper MD Active ZOLOFT 50 MG ORAL TABLET 1 tablet by mouth daily 12/08 SERTRALINE HCL 18977769429 No Longer Active Arie Casper MD Ac tive NAPROXEN 500 MG ORAL TABLET Take 1 tab BID NAPR OXEN 52790677505 No Longer Active Arie Casper MD Active CEFDINIR 300 MG ORAL CAPSULE 1 po BID x 10 days CEFDINIR 11199330119 No Longer Active Brii Russ APRN Active PREDNISONE 20 MG ORAL TABLET 1 tablet daily for airway inflammat ion PREDNISONE 82840814627 No Longer Active Brii Russ APRN A ctive CEFDINIR 300 MG ORAL CAPSULE 1 po BID x 10 days CEFDINIR 66753783989 No Longer Active Jono Gagnon DO Active FLONASE 50 MCG/ACT NASAL SUSPENSION 1 spray each nostr il twice daily for allergies and runny nose until gone FLUT ICASONE PROPIONATE 75276618151 No Longer Active Jono Gagnon DO Active ALPRAZOLAM 0.25 MG ORAL TABLET 1 tablet by mouth every 8 hours as needed for stress ALPRAZOLAM 08039251976 No Longer Active Jono Gagnon DO Active ZITHROMAX Z-EMIL 250 MG ORAL TABLET 2 today, then 1 daily for 4 d ays AZITHROMYCIN 55387506894 No Longer Active Arie Casper MD Active PREDNISONE 20 MG ORAL TABLET 2 tabs daily for 3 days, 1 tab daily for 3 days, 1/2 tab daily for 2 days PREDNISONE 35161075736 No Longer Active Brii Russ APRN Active PREDNISONE 20 MG ORAL TABLET 1 tablet twice daily for 2 days, then 1 tablet once daily for 2 days PREDNISONE 24176595264 No Longer Active Brii Russ APRN Active PROMETHAZINE HCL 12.5 MG ORAL TABLET 1 tablet by mouth every 6 hours as needed for nausea/vomiting PROMETHAZINE HCL 81078716081 No L onger Active Jono Gagnon DO Active CITRATE OF MAGNESIA ORAL SOLUTION 1 bottle today for constipatio n MAGNESIUM CITRATE 50929857655 No Longer Active Jono Gagnon DO Active ZOFRAN 4 MG ORAL TABLET 1 TAB PO Q 6 HRS PRN NAUSEA 07/10/15 ONDANSETRON HCL 60894992972 No Longer Active Brii Russ APRN Acti ve LOMOTIL 2.5-0.025 MG ORAL TABLET 1 to 2 four times a day as needed for diarrhea DIPHENOXYLATE-ATROPINE 34061644693 No Longer Active January Russ APRN Active AMOXICILLIN 500 MG ORAL TABLET 2 tabs twice a day for 10 days 20 07/09/11 AMOXICILLIN 22351120784 No Longer Active Brii Russ APRN Active CYCLOBENZAPRINE HCL 10 MG ORAL TABLET 1/2 - 1 tablet b y mouth three times daily as needed for muscle spasm/pain CYCLOBENZAPRINE HCL 42317227512 No Longer Active Arie Casper MD Active LOMOTIL 2.5-0.025 MG ORAL TABLET 1 to 2 four times a day as needed for diarrhea DIPHENOXYLATE-ATROPINE 34013851687 No Longer Active Fozia Casper MD Active MACROBID 100 MG ORAL CAPSULE 1 cap by mouth twice daily NITROFURANTOIN MONOHYD MACRO 46019322232 No Longer Active rAie Casper MD Active ZYRTEC ALLERGY 10 MG ORAL CAPSULE 1 po qd CE TIRIZINE HCL 40468540697 No Longer Active Arie Casper MD Active AZITHROMYCIN 250 MG ORAL TABLET 2 po qd x 1 day, then 1 po q d x 4 days AZITHROMYCIN 00061575971 No Longer Active Jessica salgado [employer]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 PREDNISONE 20 MG ORAL TABLET 2 tabs daily for 3 days, 1 tab daily for 3 days, 1/2 tab daily for 2 days PREDNISONE 18708366032 No Longer Active 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 PROMETHAZINE HCL 25 MG ORAL TABLET 1 four times a day as nee ded for vomiting PROMETHAZINE HCL 82132378329 No Longer Active Myrna Roberto MD Active BACTRIM DS 800-160 MG ORAL TABLET 1 twice a day 05/30 SULFAMETHOXAZOLE-TRIMETHOPRIM 49694878400 No Longer Active Myrna Roberto MD Active VICKS DAYQUIL SEVERE COLD/FLU TABLET 1 tab every 6 hours prn 201 02/22/17 [id number] TABS 91547301519 No Longer Active Chris Roberto MD Active GUAIFENESIN-CODEINE 100-10 MG/5ML ORAL SYRUP 2 tsp every 6 hours prn GUAIFENESIN-CODEINE 67447418695 No Longer Active Myrna Roberto MD Active NAPROXEN 500 MG ORAL TABLET one tab PO BID NAPR OXEN 28164012566 No Longer Active Myrna Roberto MD Active AUGMENTIN 875-125 MG ORAL TABLET 1 tab by mouth twice daily with food AMOXICILLIN-POT CLAVULANATE 69226899760 No Longer Act zaid Liliana Estrada MD PhD Active AMOXICILLIN 500 MG ORAL CAPSULE 1 tab by mouth 3 times daily 201 02/21/05 AMOXICILLIN 42533618970 No Longer Active Liliana Estrada MD PhD Active TESSALON PERLES 100 MG ORAL CAPSULE 1 tablet by mouth 3 times da cory BENZONATATE 14524821693 No Longer Active Liliana Estrada MD PhD Active FLAGYL 500 MG ORAL TABLET 1 tablet by mouth two times daily 2014 METRONIDAZOLE 87047223776 No Longer Active Nilam Doran tive ZITHROMAX 250 MG ORAL TABLET 2 po today, then 1 po q days 2-5 20 06/08/16 AZITHROMYCIN 94343177747 No Longer Active Arie Casper MD Active VITAMINS 0.8 MG ORAL TABLET take 1 tab po qday [id number] 32802016124 No Longer Active Arie Casper MD Active IBUPROFEN 800 MG ORAL TABLET take one po Q 8 hours 201 02/01/16 IBUPROFEN 79854735220 No Longer Active Arie Casper MD Acti ve [facility] TUSSIN COUGH/COLD CF 5-10-100 MG/5ML ORAL LIQUID 2 teasp oons every 4 hours [id number] 28314998929 No Longer Active Blaine Casper MD Active COMTREX COLD/COUGH DAY/NITE MS 5-2-10-325 MG ORAL 2 caps deja ry 4 hours [id number] 02654083274 No Longer Active Da aleksandra Casper MD Active CHLORASEPTIC MAX SORE THROAT 15-10 MG MOUTH/THROAT LOZENGE 1 every 2 hours prn BENZOCAINE-MENTHOL 37806484468 No Longer Active Arie Casper MD Active PREDNISONE 20 MG ORAL TABLET 2 tabs daily for 3 days, 1 tab daily for 3 days, 1/2 tab daily for 2 days PREDNISONE 42948989611 No Longer Active Jose Zhong MD Active AZITHROMYCIN 250 MG ORAL TABLET 2 po qd x 1 day, then 1 po q d x 4 days AZITHROMYCIN 48549165098 No Longer Active Jose Mcwilliams MD Active ZOFRAN ODT 4 MG ORAL TABLET DISINTEGRATING 1 po q6hr PRN Nausea ONDANSETRON 55056793066 No Longer Active Rich Rosales MD Active ZOFRAN 4 MG ORAL TABLET 1 tablet every 4 hours ONDANSETRON HCL 36110491991 No Longer Active Rich Rosales MD Activ e MUCINEX 600 MG ORAL TABLET EXTENDED RELEASE 12 HOUR Ta ke 1-2 tablets every 12 hours GUAIFENESIN 37356417612 No Longer Active Rich Rosales MD Active BACTRIM 400-80 MG ORAL TABLET take one po BID SULFAMETHOXAZOLE-TRIMETHOPRIM 62413583624 No Longer Active Abelardo HERNANDEZ Active AZITHROMYCIN 500 MG ORAL TABLET 1 PO q day x 6 days 20 03/02/23 AZITHROMYCIN 59034061410 No Longer Active Tin HERNANDEZ Activ e ZITHROMAX 250 MG ORAL TABLET 2 po today, then 1 po q days 2-5 20 10/03/08 AZITHROMYCIN 00803149676 No Longer Active Arie Casper MD Active ZITHROMAX 250 MG ORAL TABLET 2 po today, then 1 po q days 2-5 20 09/23/25 AZITHROMYCIN 39712482780 No Longer Active rAie Casper MD Active AMOXICILLIN 500 MG ORAL CAPSULE 1 tab by mouth 3 times daily 201 11/24/09 AMOXICILLIN 10058587701 No Longer Active Arie Casper MD Active BACTRIM DS 800-160 MG ORAL TABLET 1 tab by mouth twice daily 201 11/03/14 TRIMETHOPRIM-SULFAMETHOXAZOLE 73864801138 No Longer Active Fozia Casper MD Active AMOXICILLIN 500 MG ORAL TABLET take 1 tab po TID 08/05 AMOXICILLIN 01416369184 No Longer Active Arie Casper MD Acti ve VICKS DAYQUIL SEVERE COLD/FLU TABLET 1 tab every 6 hours prn 201 02/22/17 VICKS DAYQUIL SEVERE COLD/FLU TABLET PHENYLEPHRI [id number] TABS Inactive NEXPLANON IMPLANT right arm subcutaneously NEXPLANON IMPLANT ETONOGESTREL IMPL Inactive ALPRAZOLAM 0.25 MG ORAL TABLET 1 tablet by mouth every 8 hours as needed for stress ALPRAZOLAM 0.25 MG ORAL TABLET 373756 ALPRA ZOLAM Inactive AMOXICILLIN 500 MG ORAL CAPSULE 1 tab by mouth 3 times daily 201 02/21/05 AMOXICILLIN 500 MG ORAL CAPSULE 989903 AMOXICILLIN Inactive AMOXICILLIN 500 MG ORAL CAPSULE 1 tab by mouth 3 times daily 201 11/24/09 AMOXICILLIN 500 MG ORAL CAPSULE 229490 AMOXICILLIN Inactive BACTRIM 400-80 MG ORAL TABLET take one po BID BACTRIM 400- 80 MG ORAL TABLET 986853 SULFAMETHOXAZOLE-TRIMETHOPRIM Inactive BACTRIM DS 800-160 MG ORAL TABLET 1 tab by mouth twice daily 201 05/02/30 BACTRIM DS 800-160 MG ORAL TABLET 722631 TRIMETHOPRIM-SULFAMETHOXAZOLE Inactive BACTRIM DS 800-160 MG ORAL TABLET 1 twice a day 05/30 BACTRIM DS 800-160 MG ORAL TABLET 236986 SULFAMETHOXAZOLE-TRIMETHOPRIM Inactiv e BACTRIM DS 800-160 MG ORAL TABLET 1 tab by mouth twice daily 201 11/03/14 BACTRIM DS 800-160 MG ORAL TABLET 739094 TRIMETHOPRIM-SULFAMETHOXAZOLE Inactive CHERATUSSIN AC 100-10 MG/5ML ORAL SYRUP 1 tsp by mouth every 4 hours as needed for cough CHERATUSSIN AC 100-10 MG/5ML ORAL SYRUP 9 58265 GUAIFENESIN-CODEINE Inactive CITRATE OF MAGNESIA ORAL SOLUTION 1 bottle today for constipatio n CITRATE OF MAGNESIA ORAL SOLUTION 3149227 MAGNESIUM CITR ATE Inactive CYCLOBENZAPRINE HCL 10 MG ORAL TABLET 1/2 - 1 tablet b y mouth three times daily as needed for muscle spasm/pain CYCLOBEN ZAPRINE HCL 10 MG ORAL TABLET 131830 CYCLOBENZAPRINE HCL Inactive FLAGYL 500 MG ORAL TABLET 1 tablet by mouth two times daily 2014 FLAGYL 500 MG ORAL TABLET 405600 METRONIDAZOLE Inacti ve IBUPROFEN 800 MG ORAL TABLET take one po Q 8 hours 201 02/01/16 IBUPROFEN 800 MG ORAL TABLET 314196 IBUPROFEN Inactive LOMOTIL 2.5-0.025 MG ORAL TABLET 1 to 2 four times a day as needed for diarrhea LOMOTIL 2.5-0.025 MG ORAL TABLET 1946174 DIPHENOXYLATE-ATROPINE Inactive LOMOTIL 2.5-0.025 MG ORAL TABLET 1 to 2 four times a day as needed for diarrhea LOMOTIL 2.5-0.025 MG ORAL TABLET 1960869 DIPHENOXYLATE-ATROPINE Inactive LOMOTIL 2.5-0.025 MG ORAL TABLET 1 tab po four times a day as needed for diarrhea LOMOTIL 2.5-0.025 MG ORAL TABLET 6848752 DIPHENOXYLATE-ATROPINE Inactive MACROBID 100 MG ORAL CAPSULE 1 cap by mouth twice daily MACROBID 100 MG ORAL CAPSULE 2244783 NITROFURANTOIN MONOHYD MACRO In active NAPROXEN 500 [...] days PREDNISONE 20 MG ORAL T ABLET 342179 PREDNISONE Inactive PREDNISONE 20 MG ORAL TABLET 2 tabs daily for 3 days, 1 tab daily for 3 days, 1/2 tab daily for 2 days PREDNISONE 20 MG ORAL T ABLET 815934 PREDNISONE Inactive PREDNISONE 20 MG ORAL TABLET 2 tabs daily for 3 days, 1 tab daily for 3 days, 1/2 tab daily for 2 days PREDNISONE 20 MG ORAL T ABLET 132440 PREDNISONE Inactive PREDNISONE 20 MG ORAL TABLET 2 tabs daily for 3 days, 1 tab daily for 3 days, 1/2 tab daily for 2 days PREDNISONE 20 MG ORAL T ABLET 614605 PREDNISONE Inactive PREDNISONE 20 MG ORAL TABLET 1 tablet daily for airway inflammat ion PREDNISONE 20 MG ORAL TABLET 012601 PREDNISONE [place] ctive PREDNISONE 20 MG ORAL TABLET 1 tablet twice daily for 2 days, then 1 tablet once daily for 2 days PREDNISONE 20 MG ORAL TABLET 311612 PREDNISONE Inactive PROMETHAZINE HCL 12.5 MG ORAL TABLET 1 tablet by mouth every 6 hours as needed for nausea/vomiting PROMETHAZINE HCL 12.5 MG ORA L TABLET 837688 PROMETHAZINE HCL Inactive PROMETHAZINE HCL 25 MG ORAL TABLET 1 four times a day as nee ded for vomiting PROMETHAZINE HCL 25 MG ORAL TABLET 161015 PROMETHAZINE HCL Inactive ZOFRAN 4 MG ORAL TABLET 1 tablet every 4 hours ZOFRAN 4 MG ORAL TABLET 668013 ONDANSETRON HCL Inactive ZOFRAN 4 MG ORAL TABLET 1 TAB PO Q 6 HRS PRN NAUSEA 07/10/15 ZOFRAN 4 MG ORAL TABLET 283522 ONDANSETRON HCL Inactive ZOLOFT 50 MG ORAL TABLET 1 tablet by mouth daily 12/08 ZOLOFT 50 MG ORAL TABLET 717798 SERTRALINE HCL Inactive CETIRIZINE HCL 10 MG ORAL TABLET 1 po qd PRN Allergies CETIRIZINE HCL 10 MG ORAL TABLET 6331261 CETIRIZINE HCL Inactiv e TESSALON PERLES 100 MG ORAL CAPSULE 1 tablet by mouth 3 times da cory TESSALON PERLES 100 MG ORAL CAPSULE 639459 BENZONATATE Inactive AUGMENTIN 875-125 MG ORAL TABLET 1 tab by mouth twice daily with food AUGMENTIN 875-125 MG ORAL TABLET 723723 AMOXICIL ELSA-POT CLAVULANATE Inactive AMOXICILLIN 500 MG ORAL TABLET take 1 tab po TID 08/05 AMOXICILLIN 500 MG ORAL TABLET 774109 AMOXICILLIN Inactive AMOXICILLIN 500 MG ORAL TABLET 2 tabs twice a day for 10 days 20 07/09/11 AMOXICILLIN 500 MG ORAL TABLET 629707 AMOXICILLIN I nactive AZITHROMYCIN 500 MG ORAL TABLET 1 PO q day x 6 days 03/02/23 AZITHROMYCIN 500 MG ORAL TABLET 8693997 AZITHROMYCIN Inactive ZITHROMAX 250 MG ORAL TABLET 2 po today, then 1 po q days 2-5 20 09/23/25 ZITHROMAX 250 MG ORAL TABLET 307538 AZITHROMYCIN [place] ctive ZITHROMAX 250 MG ORAL TABLET 2 po today, then 1 po q days 2-5 20 10/03/08 ZITHROMAX 250 MG ORAL TABLET 857009 AZITHROMYCIN [place] ctive ZITHROMAX 250 MG ORAL TABLET 2 po today, then 1 po q days 2-5 20 06/08/16 ZITHROMAX 250 MG ORAL TABLET 825554 AZITHROMYCIN [place] ctive AZITHROMYCIN 250 MG ORAL TABLET 2 po qd x 1 day, then 1 po q d x 4 days AZITHROMYCIN 250 MG ORAL TABLET 649210 AZITHROMY ALLISON Inactive AZITHROMYCIN 250 MG ORAL TABLET 2 po qd x 1 day, then 1 po q d x 4 days AZITHROMYCIN 250 MG ORAL TABLET 597473 AZITHROMY ALLISON Inactive CEFDINIR 300 MG ORAL CAPSULE 1 po BID x 10 days 12/18 CEFDINIR 300 MG ORAL CAPSULE 20030127 CEFDINIR Inactive CEFDINIR 300 MG ORAL CAPSULE 1 po BID x 10 days CEFDINIR 300 MG ORAL CAPSULE 20030127 CEFDINIR Inactive CEFDINIR 300 MG ORAL CAPSULE 1 po BID x 10 days 01/03 CEFDINIR 300 MG ORAL CAPSULE 20030127 CEFDINIR Inactive ZOFRAN ODT 4 MG ORAL TABLET DISINTEGRATING 1 po q6hr PRN Nausea ZOFRAN ODT 4 MG ORAL TABLET DISINTEGRATING 931196 ONDAN SETRON Inactive TAMIFLU 75 MG ORAL CAPSULE 1 po BID x 5 days 0 TAMIFLU 75 MG ORAL CAPSULE 343965 OSELTAMIVIR PHOSPHATE Inactive PROTONIX 40 MG ORAL TABLET DELAYED RELEASE 1 po q a.m. PROTONIX 40 MG ORAL TABLET DELAYED RELEASE 583956 PANTOPRAZOLE SODI UM Inactive ZITHROMAX Z-EMIL 250 MG ORAL TABLET 2 today, then 1 daily for 4 d ays ZITHROMAX Z-EMIL 250 MG ORAL TABLET 654204 AZITHROMYCIN Inactive ZITHROMAX Z-EMIL 250 MG TABS Take two tablets today and then 1 tablet daily for 4 days ZITHROMAX Z-EMIL 250 MG TABS 743474 AZITHROM YCIN Inactive ZITHROMAX Z-EMIL 250 MG ORAL TABLET 2 today, then 1 daily for 4 d ays ZITHROMAX Z-EMIL 250 MG ORAL TABLET 162243 AZITHROMYCIN Inactive FLONASE 50 MCG/ACT NASAL SUSPENSION 1 spray each nostr il twice daily for allergies and runny nose until gone FLON ASE 50 MCG/ACT NASAL SUSPENSION 1409813 FLUTICASONE PROPIONATE Inactive MUCINEX 600 MG ORAL TABLET EXTENDED RELEASE 12 HOUR Ta ke 1-2 tablets every 12 hours MUCINEX 600 MG ORAL TABLET EXTENDED RELEA SE 12 HOUR GUAIFENESIN Inactive COMTREX COLD/COUGH DAY/NITE MS 5-2-10-325 MG ORAL 2 caps deja ry 4 hours COMTREX COLD/COUGH DAY/NITE MS 5-2-10-325 MG ORA L [id number] Inactive GUAIFENESIN-CODEINE 100-10 MG/5ML ORAL SYRUP 2 tsp every 6 hours prn GUAIFENESIN-CODEINE 100-10 MG/5ML ORAL SYRUP 119566 GUAIFENESIN-CODEINE Inactive VITAMINS 0.8 MG ORAL TABLET take 1 tab po qday VITAMINS 0.8 MG ORAL TABLET [id number] E-FA Inactive [facility] TUSSIN COUGH/COLD CF 5-10-100 MG/5ML ORAL LIQUID 2 teasp oons every 4 hours [facility] TUSSIN COUGH/COLD CF 5-10-100 MG/5ML ORAL LI QUID [id number] Inactive ZYRTEC ALLERGY 10 MG ORAL CAPSULE [...] Lab Report: CBC, Quant BHCG - Hematology mean corpuscular hemoglobin, RBC 26.7 pg 27. 0-31.2 mean corpuscular hemoglobin concentration, RBC 32.2 G/DL % 31.8-35.4 red blood cell distribution width 13.3 % 11 .6-14.8 platelet count 263 10^3/MM^3 10*3/mm3 967-248 4880/11/09 leukocyte count, blood 7.8 10^3/MM^3 10*3/mm3 4.6-10.2 erythrocyte (RBC) count 4.77 10^6/MM^3 10*6/mm3 3.80-5.8 0 hemoglobin, blood 12.7 g/dL 12.0-16.0 hematocrit, blood 39.5 % 37.0-47.0 mean corpuscular volume, RBC 83 fL 80-97 Lab Report: [facility]/Adult/470, PROLACTIN - C hemistry [...] Negative Encounters Code Encounter Date Provider Facility CPT-74506 Level 3 Est. Patient 11:49:34 CALL OR CONTACT CENTRE OPERATOR Jessica boyd [facility] CPT-01597 Level 3 Est. Patient 14:55:50 CALL OR CONTACT CENTRE OPERATOR Jose Zhong MD [facility] CPT-80293 Level 3 Est. Patient 10:21:41 CALL OR CONTACT CENTRE OPERATOR Arie mcqueen MD [facility] CPT-75442 Level 3 Est. Patient 11:35:15 CALL OR CONTACT CENTRE OPERATOR Arie mcqueen MD [facility] CPT-72146 Level 3 Est. Patient 15:40:28 CDT Brii escalante [facility] CPT-95945 Level 3 Est. Patient 16:40:36 CDT Arie mcqueen MD [facility] CPT-24207 Level 4 Est. Patient 15:29:22 CALL OR CONTACT CENTRE OPERATOR Arie mcqueen MD [facility] CPT-05397 Level 3 Est. Patient 15:18:16 CALL OR CONTACT CENTRE OPERATOR Jono W L [facility] CPT-30971 Level 4 Est. Patient 12:08:40 CALL OR CONTACT CENTRE OPERATOR Brii Are ll 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 [facility] CPT-50307 Level 3 Est. Patient 09:24:42 CDT Brii Are ll 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 [facility] CPT-71961 Level 3 Est. Patient 09:12:56 CDT Arie mcqueen MD [facility] CPT-56928 Level 3 Est. Patient 16:40:54 CDT Jose Zhong MD [facility] CPT-70172 Level 2 Est. Patient 13:01:13 CDT Brii Are ll [facility] CPT-39703 Level 3 Est. Patient 11:55:30 CALL OR CONTACT CENTRE OPERATOR Jono Cheema [facility]-16142 Level 3 Est. Patient 09:52:36 CALL OR CONTACT CENTRE OPERATOR Brii Are ll [facility] CPT-28367 Level 3 Est. Patient 16:25:33 CALL OR CONTACT CENTRE OPERATOR Rich Rosales MD [facility] CPT-79298 Level 3 Est. Patient 20:33:55 CDT Arie mcqueen MD [facility] CPT-46397 Level 3 Est. Patient 14:18:20 CDT Rich Rosales MD [facility] CPT-61692 Level 4 Est. Patient 09:34:31 CDT Arie mcqueen MD [facility] CPT-49047 Level 3 Est. Patient 09:08:55 CALL OR CONTACT CENTRE OPERATOR Liliana vincent MD PhD [facility] CPT-08963 Level 3 Est. Patient 16:44:07 CALL OR CONTACT CENTRE OPERATOR Arie mcqueen MD [facility] [place][note 2]-07502 Level 3 Est. Patient 10:44:27 CDT Arie mcqueen MD [facility] CPT-56635 Level 3 Est. Patient 08:55:41 CDT Jose Zhong MD [facility] CPT-51035 Level 3 Est. Patient 18:37:31 CDT Liliana vincent MD PhD [facility] CPT-98168 Level 3 Est. Patient 14:28:23 CDT Abelardo HERNANDEZ [facility] CPT-01324 Level 3 Est. Patient 15:18:13 CALL OR CONTACT CENTRE OPERATOR Arie mcqueen MD [facility] CPT-17025 Level 3 Est. Patient 10:11:29 CALL OR CONTACT CENTRE OPERATOR Arie mcqueen MD [facility] CPT-38395 Level 3 Est. Patient 10:55:57 CALL OR CONTACT CENTRE OPERATOR Jono black DO [facility] CPT-24611 Level 3 Est. Patient 17:29:05 CDT Arie mcqueen MD [facility] Procedures Code Procedure Name Date Entry Date Standard Desc ription CPT-38811 Nexplanon Removal 15:40:28 CDT CPT-89918 Sono transvag pelvis non OB uterus ovari es cervix - XRAY USE ONLY 08:58:14 CALL OR CONTACT CENTRE OPERATOR CPT-61895 UA w micro - LAB USE ONLY 16:04:56 CALL OR CONTACT CENTRE OPERATOR 2015 CPT-81810 Wet Prep/GEN - LAB USE ONLY 16:04:56 CALL OR CONTACT CENTRE OPERATOR 20 08/10/29 CPT-92658 First Vx - Ix admin via ID I M or jet injects without counseling by physician 16:57:10 CDT CPT-35679 Fluzone Preservative Free Intramuscular Suspension 16:57:10 CDT CPT-J0696 Rocephin 1000 mg (Ceftriaxone) 11:49:23 CDT CPT-J1040 Depo Medrol 80 mg (Methyl Prednisolone A cetate) 11:49:23 CDT CPT-J1100 Decadron 8mg (Dexamethasone) 11:49:23 CDT 2 CPT-24634 Abx/Therapy Injection 11:49:23 CDT CPT-96839 Abx/Therapy Injection 11:49:23 CDT CPT-99041 Abd compl w upright 09:07:26 CALL OR CONTACT CENTRE OPERATOR CPT-05995 Ear Wash 16:12:47 CALL OR CONTACT CENTRE OPERATOR CPT-OV Office Visit 11:12:01 CDT CPT-OV Office Visit 15:30:23 CDT CPT-27131 Sono pelvis non OB uterus ovaries cervix 15:50:44 CDT CPT-48668 Hand comp min 3V 16:42:32 CDT CPT-59569 Abd compl w upright 12:17:01 CDT CPT-07490 Nexplanon Placement 15:07:39 CALL OR CONTACT CENTRE OPERATOR CPT-64890 Removal of IUD 15:07:39 CALL OR CONTACT CENTRE OPERATOR CPT-45858 TB Tubersol 12:09:32 CDT CPT-29163 TB Tubersol 13:55:43 CDT
--- OUTSIDE RECORDS SUMMARY | 2020-03-03 07:38 | XMS REPORT | Clinical Summary ---
Author Author Admin, Diamante Marcelo Organization [facility] Address Unknown Phone Unavailable Allergies, [...] of uterus, unspecified Health screening V70.0 Active Rosenan Crawford Routine general medical examination at a [...] Instructions Start Date Stop Date Generic Name [facility] Status Provider Patient Instruction MACROBID 100 MG CAP 1 cap by mouth twice daily NITROFURANTOIN MONOHYD MACRO [id number] Active Myrna Roberto MD Active PROMETHAZINE HCL 25 MG TABS 1 four times a day as needed for vomiting PROMETHAZINE HCL 50344640434 No Longer Active Myrna Roberto MD Active BACTRIM DS 800-160 MG TABS 1 twice a day SULFAMETHOXAZOLE-TRIMETHOPRIM 10788162306 No Longer Active Myrna Roberto MD Active VICKS DAYQUIL SEVERE COLD/FLU TABS 1 tab every 6 hours prn 12/10 [id number]-WB-APAP TABS 84974979339 No Longer Active Myrna leigh MD Active GUAIFENESIN-CODEINE 100-10 MG/5ML ORAL SYRP 2 tsp every 6 hours prn GUAIFENESIN-CODEINE 41090129860 No Longer Active Myrna Roberto MD Active NAPROXEN 500 MG TAB one tab PO BID NAPROXEN 332 15324443 No Longer Active Myrna Roberto MD Active LOMOTIL 2.5-0.025 MG TABS 1 to 2 four times a day as needed for diarrhea DIPHENOXYLATE-ATROPINE 28527629295 Active Rich mcintosh MD Active AUGMENTIN 875-125 MG TAB 1 tab by mouth twice daily with food 20 08/12/16 AMOXICILLIN-POT CLAVULANATE 08345333038 No Longer Active Liliana Estrada MD PhD Active CYCLOBENZAPRINE HCL 10 MG TABS 1/2 - 1 tablet by mouth three times daily as needed for muscle spasm/pain CYCLOBENZAPRINE HCL 12514 492709 Active Liliana Estrada MD PhD Active AMOXICILLIN 500 MG CAP 1 tab by mouth 3 times daily 08/12/16 AMOXICILLIN 58979856579 No Longer Active Liliana Estrada MD PhD Acti ve TESSALON PERLES 100 MG CAP 1 tablet by mouth 3 times daily 11/01 BENZONATATE 77806022276 No Longer Active Liliana Estrada MD PhD Active FLAGYL 500 MG TAB 1 tablet by mouth two times daily 07/11/29 METRONIDAZOLE 62747508941 No Longer Active Nilam Rakatie Active ZITHROMAX 250 MG TAB 2 po today, then 1 po q days 2-5 AZITHROMYCIN 27723815852 No Longer Active Arie Casper MD Acti ve VITAMINS 0.8 MG TABS take 1 tab po qday 08/08 [id number]-FUP-QM-FA 53203656297 No Longer Active Arie Casper MD Active IBUPROFEN 800 MG TABS take one po Q 8 hours IBU PROFEN 19336435597 No Longer Active Arie Casper MD Active [facility] TUSSIN COUGH/COLD CF 5-10-100 MG/5ML LIQD 2 teaspoons ev eliud 4 hours [id number]-IF-LL 96281746839 No Longer Active Blaine Casper MD Active COMTREX COLD/COUGH DAY/NITE MS 5-2-10-325 MG MISC 2 caps deja ry 4 hours HNQOFVJSF-AYQ-FH-APAP 61957782417 No Longer Active Landon Casper MD Active CHLORASEPTIC MAX SORE THROAT 15-10 MG LOZG 1 every 2 hours prn 2 BENZOCAINE-MENTHOL 24114138053 No Longer Active Arie Marcelo Active PREDNISONE 20 MG TAB 2 tabs daily for 3 days, 1 t ab daily for 3 days, 1/2 tab daily for 2 days PREDNISONE 88237928488 No Longer Active Jose Zhong MD Active AZITHROMYCIN 250 MG TABS 2 po qd x 1 day, then 1 po qd x 4 days AZITHROMYCIN 99950342796 No Longer Active Jose Zhong MD Active ZOFRAN ODT 4 MG TBDP 1 po q6hr PRN Nausea ONDAN SETRON 93992879975 No Longer Active Rich Rosales MD Active ZOFRAN 4 MG TABS 1 tablet every 4 hours ONDANSE JERRELL HCL 56085893965 No Longer Active Rich Rosales MD Active MUCINEX 600 MG [id number] Take 1-2 tablets every 12 hours GUAIFENESIN 06794549187 No Longer Active Rich Rosales MD Activ e BACTRIM 400-80 MG TABS take one po BID SULFAMETHOXAZOLE-TRIMETHOPRIM 73000706514 No Longer Active Abelardo HERNANDEZ Active AZITHROMYCIN 500 MG TABS 1 PO q day x 6 days AZ ITHROMYCIN 12316805755 No Longer Active Tin HERNANEDZ Active ZITHROMAX 250 MG TAB 2 po today, then 1 po q days 2-5 AZITHROMYCIN 52256034561 No Longer Active Arie Casper MD Acti ve ZITHROMAX 250 MG TAB 2 po today, then 1 po q days 2-5 AZITHROMYCIN 30036098826 No Longer Active Arie Casper MD Acti ve AMOXICILLIN 500 MG CAP 1 tab by mouth 3 times daily 09/23/20 AMOXICILLIN 42208357096 No Longer Active Arie Casper MD Acti ve BACTRIM DS 800-160 MG TAB 1 tab by mouth twice daily 2 TRIMETHOPRIM-SULFAMETHOXAZOLE 38990009455 No Longer Active Arie Casper MD Active AMOXICILLIN 500 MG TABS take 1 tab po TID AMOXI CILLIN 66818820657 No Longer Active Arie Casper MD Active BACTRIM DS 800-160 MG TAB 1 tab by mouth twice daily 2 BACTRIM DS 800-160 MG TAB TRIMETHOPRIM-SULFAMETHOXAZOLE Inac tive MUCINEX 600 MG [id number] Take 1-2 tablets every 12 hours MUCINEX 600 MG QF72H-CIN GUAIFENESIN Inactive ZOFRAN 4 MG TABS 1 tablet every 4 hours ZOFRAN 4 MG TABS 601340 ONDANSETRON HCL Inactive ZOFRAN ODT 4 MG TBDP 1 po q6hr PRN Nausea ZOFRAN ODT 4 MG TBDP 411749 ONDANSETRON Inactive CHLORASEPTIC MAX SORE THROAT 15-10 MG LOZG 1 every 2 hours prn 2 /04/30 CHLORASEPTIC MAX SORE THROAT 15-10 MG LOZG BENZO ARINA-MENTHOL Inactive COMTREX COLD/COUGH DAY/NITE MS 5-2-10-325 MG MISC 2 caps deja ry 4 hours COMTREX COLD/COUGH DAY/NITE MS 5-2-10-325 MG MIS C [id number]-[id number]-APAP Inactive [facility] TUSSIN COUGH/COLD CF 5-10-100 MG/5ML LIQD 2 teaspoons ev eliud 4 hours [facility] TUSSIN COUGH/COLD CF 5-10-100 MG/5ML LIQD [id number]-[id number] Inactive IBUPROFEN 800 MG TABS take one po Q 8 hours IBUPROFEN 800 MG TABS 159606 IBUPROFEN Inactive VITAMINS 0.8 MG TABS take 1 tab po qday 08/08 VITAMINS 0.8 MG TABS [id number]-GYT-LX-FA Inactive TESSALON PERLES 100 MG CAP 1 tablet by mouth 3 times daily 11/01 TESSALON PERLES 100 MG CAP 242862 BENZONATATE Inact zaid AMOXICILLIN 500 MG CAP 1 tab by mouth 3 times daily 08/12/16 AMOXICILLIN 500 MG CAP 357708 AMOXICILLIN Inactive GUAIFENESIN-CODEINE 100-10 MG/5ML ORAL SYRP 2 tsp every 6 hours prn GUAIFENESIN-CODEINE 100-10 MG/5ML ORAL SYRP 016889 GUAIFENESIN-CODEINE Inactive VICKS DAYQUIL SEVERE COLD/FLU TABS 1 tab every 6 hours prn 12/10 VICKS DAYQUIL SEVERE COLD/FLU TABS PHENYLEPHRINE -DM-GG-APAP TABS Inactive BACTRIM DS 800-160 MG TABS 1 twice a day BACTRIM DS 800- 160 MG TABS SULFAMETHOXAZOLE-TRIMETHOPRIM Inactive PROMETHAZINE HCL 25 MG TABS 1 four times a day as needed for vomiting PROMETHAZINE HCL 25 MG TABS 943075 PROMETHAZINE HCL Inactive AMOXICILLIN 500 MG TABS take 1 tab po TID AMOXICILLIN 500 MG TABS 252449 AMOXICILLIN Inactive AMOXICILLIN 500 MG CAP 1 tab by mouth 3 times daily 09/23/20 AMOXICILLIN 500 MG CAP 276135 AMOXICILLIN Inactive ZITHROMAX 250 MG TAB 2 po today, then 1 po q days 2-5 ZITHROMAX 250 MG TAB 6259458 AZITHROMYCIN Inactive ZITHROMAX 250 MG TAB 2 po today, then 1 po q days 2-5 ZITHROMAX 250 MG TAB 5165017 AZITHROMYCIN Inactive AZITHROMYCIN 500 MG TABS 1 PO q day x 6 days 3 AZITHROMYCIN 500 MG TABS 9142739 AZITHROMYCIN Inactive BACTRIM 400-80 MG TABS take one po BID BA CTRIM 400-80 MG TABS 196117 SULFAMETHOXAZOLE-TRIMETHOPRIM Inactive AZITHROMYCIN 250 MG TABS 2 po qd x 1 day, then 1 po qd x 4 days AZITHROMYCIN 250 MG TABS 5767068 AZITHROMYCIN Inactiv e PREDNISONE 20 MG TAB 2 tabs daily for 3 days, 1 t ab daily for 3 days, 1/2 tab daily for 2 days PREDNISONE 20 MG TAB 156850 PREDNISON E Inactive ZITHROMAX 250 MG TAB 2 po today, then 1 po q days 2-5 ZITHROMAX 250 MG TAB 5784256 AZITHROMYCIN Inactive FLAGYL 500 MG TAB 1 tablet by mouth two times daily 07/11/29 FLAGYL 500 MG TAB 332825 METRONIDAZOLE Inactive AUGMENTIN 875-125 MG TAB 1 tab by mouth twice daily with food 20 08/12/16 AUGMENTIN 875-125 MG TAB 704052 AMOXICILLIN-POT CLAVULA ANGELO Inactive NAPROXEN 500 MG TAB one tab PO BID NAPROXEN 500 MG TAB 386765 NAPROXEN Inactive Advance Directives Directive Description Start [...] 214 10^3/MM^3 10*3/mm3 142-424 Lab Report: Chlamydia/GC APTIMA/[id number] - Lab chlamydia DNA probe NOT DETECTED NOT DETECTED Lab Report: Chlamydia/GC APTIMA/[id number] - Microbiology Neisseria gonorrhoeae DNA probe NOT DETECTED NO T DETECTED Lab Report: HIV-1/2 Agn/Darcy/67386, HEPAT ITIS PANEL, ACUTE W/REFLE - Chemistry [...] 5.0-8.5 Encounters Code Encounter Date Provider Facility CPT-21927 Level 3 Est. Patient 14:18:20 CDT Rich Rosales MD [facility] CPT-37329 Level 4 Est. Patient 09:34:31 CDT Arie mcqueen MD [facility] CPT-21851 Level 3 Est. Patient 09:08:55 PAVER L[employer]ER Liliana vincent MD PhD [facility] CPT-80385 Level 3 Est. Patient 16:44:07 PAVER LAYER Arie mcqueen MD [facility] CPT-81355 Level 3 Est. Patient 10:44:27 CDT Arie mcqueen MD [facility] CPT-56162 Level 3 Est. Patient 08:55:41 CDT Jose Zhong MD [facility] CPT-31799 Level 3 Est. Patient 18:37:31 CDT Liliana vincent MD PhD [facility] CPT-92936 Level 3 Est. Patient 14:28:23 CDT Abelardo marroquin PA [facility] CPT-78269 Level 3 Est. Patient 15:18:13 PAVER LAYER Arie mcqueen MD [facility] CPT-84239 Level 3 Est. Patient 10:11:29 PAVER LAYER Arie mcqueen MD [facility] CPT-15774 Level 3 Est. Patient 10:55:57 P[employer]ER L[employer]ER Jono black DO [facility] CPT-05770 Level 3 Est. Patient 17:29:05 CDT Arie mcqueen MD [facility] Procedures Code Procedure Name Date Entry Date Standard Desc ription CPT-OV Office Visit 11:12:01 CDT CPT-OV Office Visit 15:30:23 CDT CPT-76930 Sono pelvis non OB uterus ovaries cervix 15:50:44 CDT CPT-33609 Hand comp min 3V 16:42:32 CDT CPT-79199 Abd compl w upright 12:17:01 CDT CPT-02454 Nexplanon Placement 15:07:39 PAVER LAYER CPT-22353 Removal of IUD 15:07:39 PAVER LAYER CPT-55620 TB Tubersol 12:09:32 CDT CPT-80781 TB Tubersol 13:55:43 CDT
--- OUTSIDE RECORDS SUMMARY | 2020-03-03 07:38 | XMS REPORT | Clinical Summary ---
Author Author Admin, Diamante Marcelo Organization [facility] Address Unknown Phone Unavailable Allergies, Adverse Reactions, [...] Acute pharyngitis Gastroenteritis, acute 558.9 Active Rich baebe MD Other and unspecified noninfectious gastroenteritis and [...] implantable subdermal contraceptiv e Active Brii Russ [employer] Vaginal bleeding 623.8 Active Arie Casper MD Other specified noninflammatory disorders of vagina Influenza like illness 487.1 Active Jose Mcwilliams MD Influenza with other respiratory manifestations Sinusitis 473.9 Active Jessica Heaton [employer] Unspecified sinusitis (chronic) BREAST CANCER ICD-V16.3 Inactive [...] 1 tablet daily for 4 days AZITHROMYCIN 20563082123 Active Rich Marcelo Active GUAIFENESIN DM 400-20 MG ORAL TABLET 1 pill by mouth t wice daily, if needed for cough DEXTROMETHORPHAN-GUAIFENESIN 97774598508 No Longer Active Rich Rosales MD Active TUSSIONEX PENNKINETIC ER 10-8 MG/5ML ORAL SUSPENSION E XTENDED RELEASE 5ml po q12hr PRN Cough HYDROCOD POLST-CHLORPHEN POLST 35040374322 Active Rich Rosales MD Active CEFDINIR 300 MG ORAL CAPSULE 1 po BID x 10 days CEFDINIR 19177179571 No Longer Active Jillina Florina [employer] Active CHERATUSSIN AC 100-10 MG/5ML ORAL SYRUP 1 tsp by mouth every 4 hours as needed for cough GUAIFENESIN-CODEINE 10700336006 No Longe r Active Jillina Fradeepl [employer] Active TAMIFLU 75 MG ORAL CAPSULE 1 po BID x 5 days 0 OSELTAMIVIR PHOSPHATE 08361885252 No Longer Active Jose Zhong MD Activ e ZITHROMAX Z-EMIL 250 MG ORAL TABLET 2 today, then 1 daily for 4 d ays AZITHROMYCIN 40408536234 No Longer Active Arie Casper MD Active PROTONIX 40 MG ORAL TABLET DELAYED RELEASE 1 po q a.m. PANTOPRAZOLE SODIUM 05191508348 No Longer Active Arie Casper MD Active BACTRIM DS 800-160 MG ORAL TABLET 1 tab by mouth twice daily 201 05/02/30 TRIMETHOPRIM-SULFAMETHOXAZOLE 39435037695 No Longer Active R [facility] Active NEXPLANON IMPLANT right arm subcutaneously ETONOGESTREL IMPL 99721081232 No Longer Active Brii Russ APRN Active TUSSIONEX PENNKINETIC ER 10-8 MG/5ML ORAL SUSPENSION E XTENDED RELEASE 5ml po q12hr PRN Cough HYDROCOD POLST-CHLORPHEN POLST 5 4815098727 No Longer Active Brii Russ APRN Active CETIRIZINE HCL 10 MG ORAL TABLET 1 po qd PRN Allergies CETIRIZINE HCL 62439431533 No Longer Active Brii Russ APRN Activ e PREDNISONE 20 MG ORAL TABLET 2 tabs daily for 3 days, 1 tab daily for 3 days, 1/2 tab daily for 2 days PREDNISONE 76929119546 No Longer Active Arie Casper MD Active LOMOTIL 2.5-0.025 MG ORAL TABLET 1 tab po four times a day as needed for diarrhea DIPHENOXYLATE-ATROPINE 34068871890 No Lo nger Active Arie Casper MD Active ZOLOFT 50 MG ORAL TABLET 1 tablet by mouth daily 12/08 SERTRALINE HCL 83495954102 No Longer Active Arie Casper MD Ac tive NAPROXEN 500 MG ORAL TABLET Take 1 tab BID NAPR OXEN 31301337610 No Longer Active Arie Casper MD Active CEFDINIR 300 MG ORAL CAPSULE 1 po BID x 10 days CEFDINIR 69614596609 No Longer Active Brii Russ APRN Active PREDNISONE 20 MG ORAL TABLET 1 tablet daily for airway inflammat ion PREDNISONE 76173725592 No Longer Active Brii Russ APRN A ctive CEFDINIR 300 MG ORAL CAPSULE 1 po BID x 10 days CEFDINIR 66502104913 No Longer Active Jono Gagnon DO Active FLONASE 50 MCG/ACT NASAL SUSPENSION 1 spray each nostr il twice daily for allergies and runny nose until gone FLUT ICASONE PROPIONATE 68185198629 No Longer Active Jono Gagnon DO Active ALPRAZOLAM 0.25 MG ORAL TABLET 1 tablet by mouth every 8 hours as needed for stress ALPRAZOLAM 26952979774 No Longer Active Jono Gagnon DO Active ZITHROMAX Z-EMIL 250 MG ORAL TABLET 2 today, then 1 daily for 4 d ays AZITHROMYCIN 81944500133 No Longer Active Arie Casper MD Active PREDNISONE 20 MG ORAL TABLET 2 tabs daily for 3 days, 1 tab daily for 3 days, 1/2 tab daily for 2 days PREDNISONE 06548875909 No Longer Active Brii Russ APRN Active PREDNISONE 20 MG ORAL TABLET 1 tablet twice daily for 2 days, then 1 tablet once daily for 2 days PREDNISONE 94200569533 No Longer Active Brii Russ APRN Active PROMETHAZINE HCL 12.5 MG ORAL TABLET 1 tablet by mouth every 6 hours as needed for nausea/vomiting PROMETHAZINE HCL 82655175685 No L onger Active Jono Gagnon DO Active CITRATE OF MAGNESIA ORAL SOLUTION 1 bottle today for constipatio n MAGNESIUM CITRATE 52960249696 No Longer Active Jono Gagnon DO Active ZOFRAN 4 MG ORAL TABLET 1 TAB PO Q 6 HRS PRN NAUSEA 07/10/15 ONDANSETRON HCL 69527923333 No Longer Active Brii Russ APRN Acti ve LOMOTIL 2.5-0.025 MG ORAL TABLET 1 to 2 four times a day as needed for diarrhea DIPHENOXYLATE-ATROPINE 62276693793 No Longer Active January Russ APRN Active AMOXICILLIN 500 MG ORAL TABLET 2 tabs twice a day for 10 days 20 07/09/11 AMOXICILLIN 91950308419 No Longer Active Brii Russ APRN Active CYCLOBENZAPRINE HCL 10 MG ORAL TABLET 1/2 - 1 tablet b y mouth three times daily as needed for muscle spasm/pain CYCLOBENZAPRINE HCL 21361341931 No Longer Active Arie Casper MD Active LOMOTIL 2.5-0.025 MG ORAL TABLET 1 to 2 four times a day as needed for diarrhea DIPHENOXYLATE-ATROPINE 05549417262 No Longer Active Fozia Casper MD Active MACROBID 100 MG ORAL CAPSULE 1 cap by mouth twice daily NITROFURANTOIN MONOHYD MACRO 79544746693 No Longer Active Arie Casper MD Active ZYRTEC ALLERGY 10 MG ORAL CAPSULE 1 po qd CE TIRIZINE HCL 21522365826 No Longer Active Arie Casper MD Active AZITHROMYCIN 250 MG ORAL TABLET 2 po qd x 1 day, then 1 po q d x 4 days AZITHROMYCIN 20966236182 No Longer Active Jillina Fra naomi [employer] Active PREDNISONE 20 MG ORAL TABLET 2 tabs daily for 3 days, 1 tab daily for 3 days, 1/2 tab daily for 2 days PREDNISONE 42148798311 No Longer Active Jillina Florina [employer] Active PROMETHAZINE HCL 25 MG ORAL TABLET 1 four times a day as nee ded for vomiting PROMETHAZINE HCL 35824760914 No Longer Active Myrna Roberto MD Active BACTRIM DS 800-160 MG ORAL TABLET 1 twice a day 05/30 SULFAMETHOXAZOLE-TRIMETHOPRIM 70304883447 No Longer Active Myrna Roberto MD Active VICKS DAYQUIL SEVERE COLD/FLU TABLET 1 tab every 6 hours prn 201 02/22/17 [id number] TABS 53694150188 No Longer Active Chris Roberto MD Active GUAIFENESIN-CODEINE 100-10 MG/5ML ORAL SYRUP 2 tsp every 6 hours prn GUAIFENESIN-CODEINE 98823004481 No Longer Active Myrna Roberto MD Active NAPROXEN 500 MG ORAL TABLET one tab PO BID NAPR OXEN 92884033213 No Longer Active Myrna Roberto MD Active AUGMENTIN 875-125 MG ORAL TABLET 1 tab by mouth twice daily with food AMOXICILLIN-POT CLAVULANATE 61428150094 No Longer Act zaid Liliana Estrada MD PhD Active AMOXICILLIN 500 MG ORAL CAPSULE 1 tab by mouth 3 times daily 201 02/21/05 AMOXICILLIN 66220768219 No Longer Active Liliana Estrada MD PhD Active TESSALON PERLES 100 MG ORAL CAPSULE 1 tablet by mouth 3 times da cory BENZONATATE 66446641867 No Longer Active Liliana Estrada MD PhD Active FLAGYL 500 MG ORAL TABLET 1 tablet by mouth two times daily 2014 METRONIDAZOLE 78885929383 No Longer Active Nilam Gus Ac tive ZITHROMAX 250 MG ORAL TABLET 2 po today, then 1 po q days 2-5 20 06/08/16 AZITHROMYCIN 41310400833 No Longer Active Arie Casper MD Active VITAMINS 0.8 MG ORAL TABLET take 1 tab po qday [id number] 00650997802 No Longer Active Arie Casper MD Active IBUPROFEN 800 MG ORAL TABLET take one po Q 8 hours 201 02/01/16 IBUPROFEN 46655887129 No Longer Active Arie Casper MD Acti ve [facility] TUSSIN COUGH/COLD CF 5-10-100 MG/5ML ORAL LIQUID 2 teasp oons every 4 hours [id number] 72994751180 No Longer Active Blaine Casper MD Active COMTREX COLD/COUGH DAY/NITE MS 5-2-10-325 MG ORAL 2 caps deja ry 4 hours [id number] 88026468622 No Longer Active Landon Casper MD Active CHLORASEPTIC MAX SORE THROAT 15-10 MG MOUTH/THROAT LOZENGE 1 every 2 hours prn BENZOCAINE-MENTHOL 35308524601 No Longer Active Arie Casper MD Active PREDNISONE 20 MG ORAL TABLET 2 tabs daily for 3 days, 1 tab daily for 3 days, 1/2 tab daily for 2 days PREDNISONE 00127105532 No Longer Active Jose Zhong MD Active AZITHROMYCIN 250 MG ORAL TABLET 2 po qd x 1 day, then 1 po q d x 4 days AZITHROMYCIN 78899144778 No Longer Active Jose Mcwilliams MD Active ZOFRAN ODT 4 MG ORAL TABLET DISINTEGRATING 1 po q6hr PRN Nausea ONDANSETRON 44331514556 No Longer Active Rich Rosales MD Active ZOFRAN 4 MG ORAL TABLET 1 tablet every 4 hours ONDANSETRON HCL 06143495309 No Longer Active Rich Rosales MD Activ e MUCINEX 600 MG ORAL TABLET EXTENDED RELEASE 12 HOUR Ta ke 1-2 tablets every 12 hours GUAIFENESIN 86108262287 No Longer Active Rich Rosales MD Active BACTRIM 400-80 MG ORAL TABLET take one po BID SULFAMETHOXAZOLE-TRIMETHOPRIM 33763605209 No Longer Active Abelardo HERNANDEZ Active AZITHROMYCIN 500 MG ORAL TABLET 1 PO q day x 6 days 20 03/02/23 AZITHROMYCIN 39729188071 No Longer Active Tin HERNANDEZ Activ e ZITHROMAX 250 MG ORAL TABLET 2 po today, then 1 po q days 2-5 20 10/03/08 AZITHROMYCIN 46692431161 No Longer Active Arie Casper MD Active ZITHROMAX 250 MG ORAL TABLET 2 po today, then 1 po q days 2-5 20 09/23/25 AZITHROMYCIN 88330317470 No Longer Active Arie Casper MD Active AMOXICILLIN 500 MG ORAL CAPSULE 1 tab by mouth 3 times daily 201 11/24/09 AMOXICILLIN 78984328503 No Longer Active Arie Casper MD Active BACTRIM DS 800-160 MG ORAL TABLET 1 tab by mouth twice daily 201 11/03/14 TRIMETHOPRIM-SULFAMETHOXAZOLE 61445227267 No Longer Active Fozia Casper MD Active AMOXICILLIN 500 MG ORAL TABLET take 1 tab po TID 08/05 AMOXICILLIN 08875090579 No Longer Active Arie Casper MD Acti ve BACTRIM DS 800-160 MG ORAL TABLET 1 tab by mouth twice daily 201 11/03/14 BACTRIM DS 800-160 MG ORAL TABLET 359254 TRIMETHOPRIM-SULFAMETHOXAZOLE Inactive MUCINEX 600 MG ORAL TABLET EXTENDED RELEASE 12 HOUR Ta ke 1-2 tablets every 12 hours MUCINEX 600 MG ORAL TABLET EXTENDED RELEA SE 12 HOUR GUAIFENESIN Inactive ZOFRAN 4 MG ORAL TABLET 1 tablet every 4 hours ZOFRAN 4 MG ORAL TABLET 225488 ONDANSETRON HCL Inactive ZOFRAN ODT 4 MG ORAL TABLET DISINTEGRATING 1 po q6hr PRN Nausea ZOFRAN ODT 4 MG ORAL TABLET DISINTEGRATING 519480 ONDAN SETRON Inactive CHLORASEPTIC MAX SORE THROAT 15-10 MG MOUTH/THROAT LOZENGE 1 every 2 hours prn CHLORASEPTIC MAX SORE THROAT 15-10 MG MOUTH/THROAT LOZENGE BENZOCAINE-MENTHOL Inactive COMTREX COLD/COUGH DAY/NITE MS 5-2-10-325 MG ORAL 2 caps deja ry 4 hours COMTREX COLD/COUGH DAY/NITE MS 5-2-10-325 MG ORA L [id number] Inactive [facility] TUSSIN COUGH/COLD CF 5-10-100 MG/5ML ORAL LIQUID 2 teasp oons every 4 hours [facility] TUSSIN COUGH/COLD CF 5-10-100 MG/5ML ORAL LI QUID [id number] Inactive IBUPROFEN 800 MG ORAL TABLET take one po Q 8 hours 201 02/01/16 IBUPROFEN 800 MG ORAL TABLET IBUPROFEN Inactive VITAMINS 0.8 MG ORAL TABLET take 1 tab po qday VITAMINS 0.8 MG ORAL TABLET [id number] E-FA Inactive TESSALON PERLES 100 MG ORAL CAPSULE 1 tablet by mouth 3 times da cory TESSALON PERLES 100 MG ORAL CAPSULE 485383 BENZONATATE Inactive AMOXICILLIN 500 MG ORAL CAPSULE 1 tab by mouth 3 times daily 201 02/21/05 AMOXICILLIN 500 MG ORAL CAPSULE 351302 AMOXICILLIN Inactive GUAIFENESIN-CODEINE 100-10 MG/5ML ORAL SYRUP 2 tsp every 6 hours prn GUAIFENESIN-CODEINE 100-10 MG/5ML ORAL SYRUP 038351 GUAIFENESIN-CODEINE Inactive VICKS DAYQUIL SEVERE COLD/FLU TABLET 1 tab every 6 hours prn 201 02/22/17 VICKS DAYQUIL SEVERE COLD/FLU TABLET PHENYLEPHRI [id number]-APAP TABS Inactive BACTRIM DS 800-160 MG ORAL TABLET 1 twice a day 05/30 BACTRIM DS 800-160 MG ORAL TABLET 508783 SULFAMETHOXAZOLE-TRIMETHOPRIM Inactiv e PROMETHAZINE HCL 25 MG ORAL TABLET 1 four times a day as nee ded for vomiting PROMETHAZINE HCL 25 MG ORAL TABLET 071553 PROMETHAZINE HCL Inactive ZYRTEC ALLERGY 10 MG ORAL CAPSULE 1 po qd ZYRTEC ALLERGY 10 MG ORAL CAPSULE CETIRIZINE HCL Inactive MACROBID 100 MG ORAL CAPSULE 1 cap by mouth twice daily MACROBID 100 MG ORAL CAPSULE 1692580 NITROFURANTOIN MONOHYD MACRO In active LOMOTIL 2.5-0.025 MG ORAL TABLET 1 to 2 four times a day as needed for diarrhea LOMOTIL 2.5-0.025 MG ORAL TABLET 5515047 DIPHENOXYLATE-ATROPINE Inactive CYCLOBENZAPRINE HCL 10 MG ORAL TABLET 1/2 - 1 tablet b y mouth three times daily as needed for muscle spasm/pain CYCLOBEN ZAPRINE HCL 10 MG ORAL TABLET 333460 CYCLOBENZAPRINE HCL Inactive AMOXICILLIN 500 MG ORAL TABLET 2 tabs twice a day for 10 days 20 07/09/11 AMOXICILLIN 500 MG ORAL TABLET 327295 AMOXICILLIN I nactive LOMOTIL 2.5-0.025 MG ORAL TABLET 1 to 2 four times a day as needed for diarrhea LOMOTIL 2.5-0.025 MG ORAL TABLET 3068110 DIPHENOXYLATE-ATROPINE Inactive ZOFRAN 4 MG ORAL TABLET 1 TAB PO Q 6 HRS PRN NAUSEA 20 07/10/15 ZOFRAN 4 MG ORAL TABLET 097844 ONDANSETRON HCL Inactive CITRATE OF MAGNESIA ORAL SOLUTION 1 bottle today for constipatio n CITRATE OF MAGNESIA ORAL SOLUTION 4744178 MAGNESIUM CITR ATE Inactive PROMETHAZINE HCL 12.5 MG ORAL TABLET 1 tablet by mouth every 6 hours as needed for nausea/vomiting PROMETHAZINE HCL 12.5 MG ORA L TABLET 437823 PROMETHAZINE HCL Inactive PREDNISONE 20 MG ORAL TABLET 1 tablet twice daily for 2 days, then 1 tablet once daily for 2 days PREDNISONE 20 MG ORAL TABLET 660571 PREDNISONE Inactive ALPRAZOLAM 0.25 MG ORAL TABLET 1 tablet by mouth every 8 hours as needed for stress ALPRAZOLAM 0.25 MG ORAL TABLET 538018 ALPRA ZOLAM Inactive FLONASE 50 MCG/ACT NASAL SUSPENSION 1 spray each nostr il twice daily for allergies and runny nose until gone FLON ASE 50 MCG/ACT NASAL SUSPENSION 4768223 FLUTICASONE PROPIONATE Inactive PREDNISONE 20 MG ORAL TABLET 1 tablet daily for airway inflammat ion PREDNISONE 20 MG ORAL TABLET 505012 PREDNISONE Arlen ctive NAPROXEN 500 MG ORAL TABLET Take 1 tab BID NAPROXEN 500 MG ORAL TABLET 411021 NAPROXEN Inactive ZOLOFT 50 MG ORAL TABLET 1 tablet by mouth daily 12/08 ZOLOFT 50 MG ORAL TABLET 736571 SERTRALINE HCL Inactive LOMOTIL 2.5-0.025 MG ORAL TABLET 1 tab po four times a day as needed for diarrhea LOMOTIL 2.5-0.025 MG ORAL TABLET 2672071 DIPHENOXYLATE-ATROPINE Inactive CETIRIZINE HCL 10 MG ORAL TABLET 1 po qd PRN Allergies CETIRIZINE HCL 10 MG ORAL TABLET 9793172 CETIRIZINE HCL Inactiv e TUSSIONEX PENNKINETIC ER 10-8 MG/5ML ORAL SUSPENSION E XTENDED RELEASE 5ml po q12hr PRN Cough TUSSIONEX PENNKINETI C ER 10-8 MG/5ML ORAL SUSPENSION EXTENDED RELEASE HYDROCOD POLST-CHLORPHEN POLST I nactive NEXPLANON IMPLANT right arm subcutaneously NEXPLANON IMPLANT ETONOGESTREL IMPL Inactive PROTONIX 40 MG ORAL TABLET DELAYED RELEASE 1 po q a.m. PROTONIX 40 MG ORAL TABLET DELAYED RELEASE 506864 PANTOPRAZOLE SODI UM Inactive CHERATUSSIN AC 100-10 MG/5ML ORAL SYRUP 1 tsp by mouth every 4 hours as needed for cough CHERATUSSIN AC 100-10 MG/5ML ORAL SYRUP 9 11456 GUAIFENESIN-CODEINE Inactive GUAIFENESIN DM 400-20 MG ORAL TABLET 1 pill by mouth t wice daily, if needed for cough GUAIFENESIN DM 400-20 MG ORAL TABLET 1147 685 DEXTROMETHORPHAN-GUAIFENESIN Inactive AMOXICILLIN 500 MG ORAL TABLET take 1 tab po TID 08/05 AMOXICILLIN 500 MG ORAL TABLET 490362 AMOXICILLIN Inactive AMOXICILLIN 500 MG ORAL CAPSULE 1 tab by mouth 3 times daily 201 11/24/09 AMOXICILLIN 500 MG ORAL CAPSULE 704896 AMOXICILLIN Inactive ZITHROMAX 250 MG ORAL TABLET 2 po today, then 1 po q days 2-5 20 09/23/25 ZITHROMAX 250 MG ORAL TABLET 165543 AZITHROMYCIN Amorita ctive ZITHROMAX 250 MG ORAL TABLET 2 po today, then 1 po q days 2-5 20 10/03/08 ZITHROMAX 250 MG ORAL TABLET 164204 AZITHROMYCIN Amorita ctive AZITHROMYCIN 500 MG ORAL TABLET 1 PO q day x 6 days 20 03/02/23 AZITHROMYCIN 500 MG ORAL TABLET 8482834 AZITHROMYCIN Inactive BACTRIM 400-80 MG ORAL TABLET take one po BID BACTRIM 400- 80 MG ORAL TABLET 752496 SULFAMETHOXAZOLE-TRIMETHOPRIM Inactive AZITHROMYCIN 250 MG ORAL TABLET 2 po qd x 1 day, then 1 po q d x 4 days AZITHROMYCIN 250 MG ORAL TABLET 015720 AZITHROMY ALLISON Inactive PREDNISONE 20 MG ORAL TABLET 2 tabs daily for 3 days, 1 tab daily for 3 days, 1/2 tab daily for 2 days PREDNISONE 20 MG ORAL T ABLET 128736 PREDNISONE Inactive ZITHROMAX 250 MG ORAL TABLET 2 po today, then 1 po q days 2-5 20 06/08/16 ZITHROMAX 250 MG ORAL TABLET 756078 AZITHROMYCIN Arlen ctive FLAGYL 500 MG ORAL TABLET 1 tablet by mouth two times daily 2014 FLAGYL 500 MG ORAL TABLET 533057 METRONIDAZOLE Inacti ve AUGMENTIN 875-125 MG ORAL TABLET 1 tab by mouth twice daily with food AUGMENTIN 875-125 MG ORAL TABLET 053613 AMOXICIL ELSA-POT CLAVULANATE Inactive NAPROXEN 500 MG ORAL TABLET one tab PO BID NAPROXEN 500 MG ORAL TABLET 297941 NAPROXEN Inactive PREDNISONE 20 MG ORAL TABLET 2 tabs daily for 3 days, 1 tab daily for 3 days, 1/2 tab daily for 2 days PREDNISONE 20 MG ORAL T ABLET 037790 PREDNISONE Inactive AZITHROMYCIN 250 MG ORAL TABLET 2 po qd x 1 day, then 1 po q d x 4 days AZITHROMYCIN 250 MG ORAL TABLET 202869 AZITHROMY ALLISON Inactive PREDNISONE 20 MG ORAL TABLET 2 tabs daily for 3 days, 1 tab daily for 3 days, 1/2 tab daily for 2 days PREDNISONE 20 MG ORAL T ABLET 290988 PREDNISONE Inactive ZITHROMAX Z-EMIL 250 MG ORAL TABLET 2 today, then 1 daily for 4 d ays ZITHROMAX Z-EMIL 250 MG ORAL TABLET 900704 AZITHROMYCIN Inactive CEFDINIR 300 MG ORAL CAPSULE 1 po BID x 10 days 12/18 CEFDINIR 300 MG ORAL CAPSULE 145102 CEFDINIR Inactive CEFDINIR 300 MG ORAL CAPSULE 1 po BID x 10 days CEFDINIR 300 MG ORAL CAPSULE 20030127 CEFDINIR Inactive PREDNISONE 20 MG ORAL TABLET 2 tabs daily for 3 days, 1 tab daily for 3 days, 1/2 tab daily for 2 days PREDNISONE 20 MG ORAL T ABLET 792139 PREDNISONE Inactive BACTRIM DS 800-160 MG ORAL TABLET 1 tab by mouth twice daily 201 05/02/30 BACTRIM DS 800-160 MG ORAL TABLET 345011 TRIMETHOPRIM-SULFAMETHOXAZOLE Inactive ZITHROMAX Z-EMIL 250 MG ORAL TABLET 2 today, then 1 daily for 4 d ays ZITHROMAX Z-EMIL 250 MG ORAL TABLET 138168 AZITHROMYCIN Inactive TAMIFLU 75 MG ORAL CAPSULE 1 po BID x 5 days 0 TAMIFLU 75 MG ORAL CAPSULE 452577 OSELTAMIVIR PHOSPHATE Inactive CEFDINIR 300 MG ORAL [...] Range Description Lab Report: [facility], [facility] H[facility] leukocyte count, blood 7.8 10^3/MM^3 [...] 5.0-8.5 Encounters Code Encounter Date Provider Facility CPT-42888 Level 3 Est. Patient 11:49:34 NEW CAR SALESPERSON Jessica boyd [facility] [place] 2] CPT-97334 Level 3 Est. Patient 14:55:50 NEW CAR SALESPERSON Jose Zhong MD [facility] CPT-95104 Level 3 Est. Patient 10:21:41 NEW CAR SALESPERSON Arie mcqueen MD [facility] CPT-46060 Level 3 Est. Patient 11:35:15 NEW CAR SALESPERSON Arie mcqueen MD [facility] CPT-37809 Level 3 Est. Patient 15:40:28 CDT Brii Are ll [facility] [place][note 2] CPT-12630 Level 3 Est. Patient 16:40:36 CDT Arie mcqueen MD [facility] CPT-70513 Level 4 Est. Patient 15:29:22 NEW CAR SALESPERSON Arie mqcueen MD [facility] CPT-08793 Level 3 Est. Patient 15:18:16 NEW CAR SALESPERSON Jono black [facility] CPT-29067 Level 4 Est. Patient 12:08:40 NEW CAR SALESPERSON Brii Are ll [facility] [place][note 2] CPT-39105 Level 3 Est. Patient 09:24:42 CDT Brii Are ll [facility] [place][note 2] CPT-59389 Level 3 Est. Patient 09:12:56 CDT Arie mcqueen MD [facility] CPT-82073 Level 3 Est. Patient 16:40:54 CDT Jose Zhong MD [facility] CPT-14856 Level 2 Est. Patient 13:01:13 CDT Brii Are ll [facility] [place][note 2] CPT-10499 Level 3 Est. Patient 11:55:30 NEW CAR SALESPERSON Jono black [facility] CPT-88217 Level 3 Est. Patient 09:52:36 NEW CAR SALESPERSON Brii Are ll [employer] [facility] CPT-43288 Level 3 Est. Patient 16:25:33 NEW CAR SALESPERSON Rich Rosales MD [facility] CPT-76523 Level 3 Est. Patient 20:33:55 CDT Arie mcqueen MD [facility] CPT-59056 Level 3 Est. Patient 14:18:20 CDT Rich Rosales MD [facility] CPT-71384 Level 4 Est. Patient 09:34:31 CDT Arie mcqueen MD [facility] CPT-83505 Level 3 Est. Patient 09:08:55 NEW CAR SALESPERSON Liliana vincnet MD PhD [facility] CPT-00031 Level 3 Est. Patient 16:44:07 NEW CAR SALESPERSON Arie mcqueen MD [facility] CPT-98410 Level 3 Est. Patient 10:44:27 CDT Arie mcqueen MD [facility] CPT-85426 Level 3 Est. Patient 08:55:41 CDT Jose Zhong MD [facility] CPT-99463 Level 3 Est. Patient 18:37:31 CDT Liliana vincent MD [facility] CPT-00193 Level 3 Est. Patient 14:28:23 CDT Abelardo HERNANDEZ [facility] CPT-26029 Level 3 Est. Patient 15:18:13 NEW CAR SALESPERSON Arie mcqueen MD [facility] CPT-84341 Level 3 Est. Patient 10:11:29 NEW CAR SALESPERSON Arie mcqueen MD [facility] CPT-36084 Level 3 Est. Patient 10:55:57 NEW CAR SALESPERSON Jono black DO [facility] CPT-90297 Level 3 Est. Patient 17:29:05 CDT Arie mcqueen MD [facility] Procedures Code Procedure Name Date Entry Date Standard Desc ription CPT-39894 Nexplanon Removal 15:40:28 CDT CPT-79242 Sono transvag pelvis non OB uterus ovari es cervix - XRAY USE ONLY 08:58:14 NEW CAR SALESPERSON CPT-80650 UA w micro - LAB USE ONLY 16:04:56 NEW CAR SALESPERSON 2015 CPT-67297 Wet Prep/GEN - LAB USE ONLY 16:04:56 NEW CAR SALESPERSON 20 08/10/29 CPT-37809 First Vx - Ix admin via ID I M or jet injects without counseling by physician 16:57:10 CDT CPT-21556 Fluzone Preservative Free Intramuscular Suspension 16:57:10 CDT CPT-J0696 Rocephin 1000 mg (Ceftriaxone) 11:49:23 CDT CPT-J1040 Depo Medrol 80 mg (Methyl Prednisolone A cetate) 11:49:23 CDT CPT-J1100 Decadron 8mg (Dexamethasone) 11:49:23 CDT 2 CPT-60369 Abx/Therapy Injection 11:49:23 CDT CPT-29748 Abx/Therapy Injection 11:49:23 CDT CPT-70554 Abd compl w upright 09:07:26 NEW CAR SALESPERSON CPT-41012 Ear Wash 16:12:47 NEW CAR SALESPERSON CPT-OV Office Visit 11:12:01 CDT CPT-OV Office Visit 15:30:23 CDT CPT-08503 Sono pelvis non OB uterus ovaries cervix 15:50:44 CDT CPT-58385 Hand comp min 3V 16:42:32 CDT CPT-54162 Abd compl w upright 12:17:01 CDT CPT-75973 Nexplanon Placement 15:07:39 NEW CAR SALESPERSON CPT-00559 Removal of IUD 15:07:39 NEW CAR SALESPERSON CPT-96438 TB Tubersol 12:09:32 CDT CPT-13380 TB Tubersol 13:55:43 CDT
--- OUTSIDE RECORDS SUMMARY | 2020-03-03 07:39 | XMS REPORT | Clinical Summary ---
Author Author Admin, Diamante Marcelo Organization [employer] Address Unknown Phone Unavailable Allergies, Adverse Reactions, [...] mellitus ACUTE FRONTAL SINUSITIS 461.1 Resolved A wedny Estrada MD PhD Acute frontal sinusitis CYSTITIS [...] cute pharyngitis Nausea 787.02 Active Brii Larson FISHING VESSEL OPERATOR Nausea alone URI 465.9 Active Jono Gagnon DO Acu te upper respiratory infections of unspecified site Allergic rhinitis 477.9 Active Brii Christianson PRN Allergic rhinitis, cause unspecified Abdominal pain, right lower quadrant 789.03 Active Joes Zhong MD Abdominal pain, right lower quadrant Urinary frequency 788.41 Inactive Roseann Crawford Urinary frequency Urinary frequency 788.41 Active 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, PAYROLL DIRECTOR Urinary frequency Sinusitis - acute 461.9 Active Brii Christianson PRN Acute sinusitis, unspecified Anxiety with depression 300.4 Active Glenn Larson FISHING VESSEL OPERATOR Dysthymic disorder URI 465.9 Active Jono Gagnon DO Acu te upper respiratory infections of unspecified site Vaginal bleeding 623.8 Active Brii MARROQUIN RN Other specified noninflammatory disorders of vagina High risk sexual behavior V69.2 Active Arie Casper MD High-risk sexual behavior GERD 530.81 Active Arie Casper MD Esophageal reflux Encounter for surveillance of implantable subdermal contraceptiv e Active Brii Larson FISHING VESSEL OPERATOR Vaginal bleeding 623.8 Active Arie Casper [...] 4 hours as needed for cough GUAIFENESIN-CODEINE 23471380734 Active Blaine Casper MD Active ZITHROMAX Z-EMIL 250 MG ORAL TABLET 2 today, then 1 daily for 4 d ays AZITHROMYCIN 93374120580 No Longer Active Arie Casper MD Active PROTONIX 40 MG ORAL TABLET DELAYED RELEASE 1 po q a.m. PANTOPRAZOLE SODIUM 01184586732 No Longer Active Arie Casper MD Active BACTRIM DS 800-160 MG ORAL TABLET 1 tab by mouth twice daily 201 05/02/30 TRIMETHOPRIM-SULFAMETHOXAZOLE 50710482357 No Longer Active R [facility] Active NEXPLANON IMPLANT right arm subcutaneously ETONOGESTREL IMPL 47740268612 No Longer Active Brii Larson APRN Acti ve TUSSIONEX PENNKINETIC ER 10-8 MG/5ML ORAL SUSPENSION E XTENDED RELEASE 5ml po q12hr PRN Cough HYDROCOD POLST-CHLORPHEN POLST 5 5447507399 No Longer Active Brii Larson APRN Active CETIRIZINE HCL 10 MG ORAL TABLET 1 po qd PRN Allergies CETIRIZINE HCL 51776877091 No Longer Active Brii Larson APRN Ac tive PREDNISONE 20 MG ORAL TABLET 2 tabs daily for 3 days, 1 tab daily for 3 days, 1/2 tab daily for 2 days PREDNISONE 00993498158 No Longer Active Arie Casper MD Active LOMOTIL 2.5-0.025 MG ORAL TABLET 1 tab po four times a day as needed for diarrhea DIPHENOXYLATE-ATROPINE 85519837290 No Lo nger Active Arie Casper MD Active ZOLOFT 50 MG ORAL TABLET 1 tablet by mouth daily 12/08 SERTRALINE HCL 37287102163 No Longer Active Arie Casper MD Ac tive NAPROXEN 500 MG ORAL TABLET Take 1 tab BID NAPR OXEN 01121982591 No Longer Active Arie Casper MD Active CEFDINIR 300 MG ORAL CAPSULE 1 po BID x 10 days CEFDINIR 62340621664 No Longer Active Brii Larson APRN Active PREDNISONE 20 MG ORAL TABLET 1 tablet daily for airway inflammat ion PREDNISONE 79359920817 No Longer Active Brii Larson APRN Active CEFDINIR 300 MG ORAL CAPSULE 1 po BID x 10 days CEFDINIR 21990200875 No Longer Active Jono Gagnon DO Active FLONASE 50 MCG/ACT NASAL SUSPENSION 1 spray each nostr il twice daily for allergies and runny nose until gone FLUT ICASONE PROPIONATE 78219143177 No Longer Active Jono Gagnon DO Active ALPRAZOLAM 0.25 MG ORAL TABLET 1 tablet by mouth every 8 hours as needed for stress ALPRAZOLAM 23534693171 No Longer Active Jono Gagnon DO Active ZITHROMAX Z-EMIL 250 MG ORAL TABLET 2 today, then 1 daily for 4 d ays AZITHROMYCIN 55205956945 No Longer Active Arie Casper MD Active PREDNISONE 20 MG ORAL TABLET 2 tabs daily for 3 days, 1 tab daily for 3 days, 1/2 tab daily for 2 days PREDNISONE 17197667687 No Longer Active Brii Larson APRN Active PREDNISONE 20 MG ORAL TABLET 1 tablet twice daily for 2 days, then 1 tablet once daily for 2 days PREDNISONE 70476228319 No Longer Active Brii Larson APRN Active PROMETHAZINE HCL 12.5 MG ORAL TABLET 1 tablet by mouth every 6 hours as needed for nausea/vomiting PROMETHAZINE HCL 67501111544 No L onger Active Jono Gagnon DO Active CITRATE OF MAGNESIA ORAL SOLUTION 1 bottle today for constipatio n MAGNESIUM CITRATE 49729343704 No Longer Active Jono Gagnon DO Active ZOFRAN 4 MG ORAL TABLET 1 TAB PO Q 6 HRS PRN NAUSEA 07/10/15 ONDANSETRON HCL 08640543809 No Longer Active Brii Larson APRN A ctive LOMOTIL 2.5-0.025 MG ORAL TABLET 1 to 2 four times a day as needed for diarrhea DIPHENOXYLATE-ATROPINE 42008580514 No Longer Active January Larson APRN Active AMOXICILLIN 500 MG ORAL TABLET 2 tabs twice a day for 10 days 20 07/09/11 AMOXICILLIN 75416580360 No Longer Active Brii Larson APRN Active CYCLOBENZAPRINE HCL 10 MG ORAL TABLET 1/2 - 1 tablet b y mouth three times daily as needed for muscle spasm/pain CYCLOBENZAPRINE HCL 83598670767 No Longer Active Arie Casper MD Active LOMOTIL 2.5-0.025 MG ORAL TABLET 1 to 2 four times a day as needed for diarrhea DIPHENOXYLATE-ATROPINE 88785495038 No Longer Active Fozia Casper MD Active MACROBID 100 MG ORAL CAPSULE 1 cap by mouth twice daily NITROFURANTOIN MONOHYD MACRO 27680331266 No Longer Active Arie Casper MD Active ZYRTEC ALLERGY 10 MG ORAL CAPSULE 1 po qd CE TIRIZINE HCL 44604697091 No Longer Active Arie Casper MD Active AZITHROMYCIN 250 MG ORAL TABLET 2 po qd x 1 day, then 1 po q d x 4 days AZITHROMYCIN 81023382404 No Longer Active Jillarlen Fra naomi FISHING VESSEL OPERATOR Active PREDNISONE 20 MG ORAL TABLET 2 tabs daily for 3 days, 1 tab daily for 3 days, 1/2 tab daily for 2 days PREDNISONE 52560404782 No Longer Active Jillina Fradeepl FISHING VESSEL OPERATOR Active PROMETHAZINE HCL 25 MG ORAL TABLET 1 four times a day as nee ded for vomiting PROMETHAZINE HCL 53401839377 No Longer Active Myrna Roberto MD Active BACTRIM DS 800-160 MG ORAL TABLET 1 twice a day 05/30 SULFAMETHOXAZOLE-TRIMETHOPRIM 11708522831 No Longer Active Myrna Roberto MD Active VICKS DAYQUIL SEVERE COLD/FLU TABLET 1 tab every 6 hours prn 201 02/22/17 QEEGOIFZEHEON-TR-PR-APAP TABS 93878376203 No Longer Active Chris Roberto MD Active GUAIFENESIN-CODEINE 100-10 MG/5ML ORAL SYRUP 2 tsp every 6 hours prn GUAIFENESIN-CODEINE 47638376234 No Longer Active Myrna Roberto MD Active NAPROXEN 500 MG ORAL TABLET one tab PO BID NAPR OXEN 19231580533 No Longer Active Myrna Roberto MD Active AUGMENTIN 875-125 MG ORAL TABLET 1 tab by mouth twice daily with food AMOXICILLIN-POT CLAVULANATE 54918946668 No Longer Act zaid Liliana Estrada MD PhD Active AMOXICILLIN 500 MG ORAL CAPSULE 1 tab by mouth 3 times daily 201 02/21/05 AMOXICILLIN 55336211663 No Longer Active Liliana Estrada MD PhD Active TESSALON PERLES 100 MG ORAL CAPSULE 1 tablet by mouth 3 times da cory BENZONATATE 53138391049 No Longer Active Liliana Estrada MD PhD Active FLAGYL 500 MG ORAL TABLET 1 tablet by mouth two times daily 2014 METRONIDAZOLE 23804182435 No Longer Active Nilam Doran tive ZITHROMAX 250 MG ORAL TABLET 2 po today, then 1 po q days 2-5 20 06/08/16 AZITHROMYCIN 56865806720 No Longer Active Arie Casper MD Active VITAMINS 0.8 MG ORAL TABLET take 1 tab po qday [id number] 39630837645 No Longer Active Arie Casper MD Active IBUPROFEN 800 MG ORAL TABLET take one po Q 8 hours 201 02/01/16 IBUPROFEN 41400882324 No Longer Active Arie Casper MD Acti ve [facility] TUSSIN COUGH/COLD CF 5-10-100 MG/5ML ORAL LIQUID 2 teasp oons every 4 hours [id number] 72910803484 No Longer Active Blaine Casper MD Active COMTREX COLD/COUGH DAY/NITE MS 5-2-10-325 MG ORAL 2 caps deja ry 4 hours [id number] 86464574810 No Longer Active Landon Casper MD Active CHLORASEPTIC MAX SORE THROAT 15-10 MG MOUTH/THROAT LOZENGE 1 every 2 hours prn BENZOCAINE-MENTHOL 22905971818 No Longer Active Arie Casper MD Active PREDNISONE 20 MG ORAL TABLET 2 tabs daily for 3 days, 1 tab daily for 3 days, 1/2 tab daily for 2 days PREDNISONE 01119481758 No Longer Active Jose Zhong MD Active AZITHROMYCIN 250 MG ORAL TABLET 2 po qd x 1 day, then 1 po q d x 4 days AZITHROMYCIN 81198239686 No Longer Active Jose Mcwilliams MD Active ZOFRAN ODT 4 MG ORAL TABLET DISINTEGRATING 1 po q6hr PRN Nausea ONDANSETRON 64424163845 No Longer Active Rich Rosales MD Active ZOFRAN 4 MG ORAL TABLET 1 tablet every 4 hours ONDANSETRON HCL 36745974220 No Longer Active Rich Rosales MD Activ e MUCINEX 600 MG ORAL TABLET EXTENDED RELEASE 12 HOUR Ta ke 1-2 tablets every 12 hours GUAIFENESIN 57224161303 No Longer Active Rich Rosales MD Active BACTRIM 400-80 MG ORAL TABLET take one po BID SULFAMETHOXAZOLE-TRIMETHOPRIM 65738576850 No Longer Active Abelardo HERNANDEZ Active AZITHROMYCIN 500 MG ORAL TABLET 1 PO q day x 6 days 20 03/02/23 AZITHROMYCIN 18186513873 No Longer Active Tin HERNANDEZ Activ e ZITHROMAX 250 MG ORAL TABLET 2 po today, then 1 po q days 2-5 20 10/03/08 AZITHROMYCIN 80001254437 No Longer Active Arie Casper MD Active ZITHROMAX 250 MG ORAL TABLET 2 po today, then 1 po q days 2-5 20 09/23/25 AZITHROMYCIN 40816904321 No Longer Active Arie Casper MD Active AMOXICILLIN 500 MG ORAL CAPSULE 1 tab by mouth 3 times daily 201 11/24/09 AMOXICILLIN 78851325512 No Longer Active Arie Casper MD Active BACTRIM DS 800-160 MG ORAL TABLET 1 tab by mouth twice daily 201 11/03/14 TRIMETHOPRIM-SULFAMETHOXAZOLE 66906768151 No Longer Active Fozia Casper MD Active AMOXICILLIN 500 MG ORAL TABLET take 1 tab po TID 08/05 AMOXICILLIN 83360193672 No Longer Active Arie Casper MD Acti ve VICKS DAYQUIL SEVERE COLD/FLU TABLET 1 tab every 6 hours prn 201 02/22/17 VICKS DAYQUIL SEVERE COLD/FLU TABLET PHENYLEPHRI [id number] TABS Inactive NEXPLANON IMPLANT right arm subcutaneously NEXPLANON IMPLANT ETONOGESTREL IMPL Inactive ALPRAZOLAM 0.25 MG ORAL TABLET 1 tablet by mouth every 8 hours as needed for stress ALPRAZOLAM 0.25 MG ORAL TABLET 092473 ALPRA ZOLAM Inactive AMOXICILLIN 500 MG ORAL CAPSULE 1 tab by mouth 3 times daily 201 02/21/05 AMOXICILLIN 500 MG ORAL CAPSULE 268061 AMOXICILLIN Inactive AMOXICILLIN 500 MG ORAL CAPSULE 1 tab by mouth 3 times daily 201 11/24/09 AMOXICILLIN 500 MG ORAL CAPSULE 322093 AMOXICILLIN Inactive BACTRIM 400-80 MG ORAL TABLET take one po BID BACTRIM 400- 80 MG ORAL TABLET 529365 SULFAMETHOXAZOLE-TRIMETHOPRIM Inactive BACTRIM DS 800-160 MG ORAL TABLET 1 tab by mouth twice daily 201 05/02/30 BACTRIM DS 800-160 MG ORAL TABLET 831060 TRIMETHOPRIM-SULFAMETHOXAZOLE Inactive BACTRIM DS 800-160 MG ORAL TABLET 1 twice a day 05/30 BACTRIM DS 800-160 MG ORAL TABLET 19821226 SULFAMETHOXAZOLE-TRIMETHOPRIM Inactiv e BACTRIM DS 800-160 MG ORAL TABLET 1 tab by mouth twice daily 201 11/03/14 BACTRIM DS 800-160 MG ORAL TABLET 591870 TRIMETHOPRIM-SULFAMETHOXAZOLE Inactive CITRATE OF MAGNESIA ORAL SOLUTION 1 bottle today for constipatio n CITRATE OF MAGNESIA ORAL SOLUTION 0847509 MAGNESIUM CITR ATE Inactive CYCLOBENZAPRINE HCL 10 MG ORAL TABLET 1/2 - 1 tablet b y mouth three times daily as needed for muscle spasm/pain CYCLOBEN ZAPRINE HCL 10 MG ORAL TABLET 469758 CYCLOBENZAPRINE HCL Inactive FLAGYL 500 MG ORAL TABLET 1 tablet by mouth two times daily 2014 FLAGYL 500 MG ORAL TABLET 496450 METRONIDAZOLE Inacti ve IBUPROFEN 800 MG ORAL TABLET take one po Q 8 hours 201 02/01/16 IBUPROFEN 800 MG ORAL TABLET 078908 IBUPROFEN Inactive LOMOTIL 2.5-0.025 MG ORAL TABLET 1 to 2 four times a day as needed for diarrhea LOMOTIL 2.5-0.025 MG ORAL TABLET 4923512 DIPHENOXYLATE-ATROPINE Inactive LOMOTIL 2.5-0.025 MG ORAL TABLET 1 to 2 four times a day as needed for diarrhea LOMOTIL 2.5-0.025 MG ORAL TABLET 7461214 DIPHENOXYLATE-ATROPINE Inactive LOMOTIL 2.5-0.025 MG ORAL TABLET 1 tab po four times a day as needed for diarrhea LOMOTIL 2.5-0.025 MG ORAL TABLET 7841228 DIPHENOXYLATE-ATROPINE Inactive MACROBID 100 MG ORAL CAPSULE 1 cap by mouth twice daily MACROBID 100 MG ORAL CAPSULE 6213507 NITROFURANTOIN MONOHYD MACRO In active NAPROXEN 500 [...] days PREDNISONE 20 MG ORAL T ABLET 397360 PREDNISONE Inactive PREDNISONE 20 MG ORAL TABLET 2 tabs daily for 3 days, 1 tab daily for 3 days, 1/2 tab daily for 2 days PREDNISONE 20 MG ORAL T ABLET 551150 PREDNISONE Inactive PREDNISONE 20 MG ORAL TABLET 2 tabs daily for 3 days, 1 tab daily for 3 days, 1/2 tab daily for 2 days PREDNISONE 20 MG ORAL T ABLET 091465 PREDNISONE Inactive PREDNISONE 20 MG ORAL TABLET 2 tabs daily for 3 days, 1 tab daily for 3 days, 1/2 tab daily for 2 days PREDNISONE 20 MG ORAL T ABLET 371849 PREDNISONE Inactive PREDNISONE 20 MG ORAL TABLET 1 tablet daily for airway inflammat ion PREDNISONE 20 MG ORAL TABLET 494459 PREDNISONE Amigo ctive PREDNISONE 20 MG ORAL TABLET 1 tablet twice daily for 2 days, then 1 tablet once daily for 2 days PREDNISONE 20 MG ORAL TABLET 906601 PREDNISONE Inactive PROMETHAZINE HCL 12.5 MG ORAL TABLET 1 tablet by mouth every 6 hours as needed for nausea/vomiting PROMETHAZINE HCL 12.5 MG ORA L TABLET 125957 PROMETHAZINE HCL Inactive PROMETHAZINE HCL 25 MG ORAL TABLET 1 four times a day as nee ded for vomiting PROMETHAZINE HCL 25 MG ORAL TABLET 036656 PROMETHAZINE HCL Inactive ZOFRAN 4 MG ORAL TABLET 1 tablet every 4 hours ZOFRAN 4 MG ORAL TABLET 035095 ONDANSETRON HCL Inactive ZOFRAN 4 MG ORAL TABLET 1 TAB PO Q 6 HRS PRN NAUSEA 07/10/15 ZOFRAN 4 MG ORAL TABLET 337881 ONDANSETRON HCL Inactive ZOLOFT 50 MG ORAL TABLET 1 tablet by mouth daily 12/08 ZOLOFT 50 MG ORAL TABLET 140921 SERTRALINE HCL Inactive CETIRIZINE HCL 10 MG ORAL TABLET 1 po qd PRN Allergies CETIRIZINE HCL 10 MG ORAL TABLET 6749289 CETIRIZINE HCL Inactiv e TESSALON PERLES 100 MG ORAL CAPSULE 1 tablet by mouth 3 times da cory TESSALON PERLES 100 MG ORAL CAPSULE 634000 BENZONATATE Inactive AUGMENTIN 875-125 MG ORAL TABLET 1 tab by mouth twice daily with food AUGMENTIN 875-125 MG ORAL TABLET 054836 AMOXICIL ELSA-POT CLAVULANATE Inactive AMOXICILLIN 500 MG ORAL TABLET take 1 tab po TID 08/05 AMOXICILLIN 500 MG ORAL TABLET 212912 AMOXICILLIN Inactive AMOXICILLIN 500 MG ORAL TABLET 2 tabs twice a day for 10 days 20 07/09/11 AMOXICILLIN 500 MG ORAL TABLET 752764 AMOXICILLIN I nactive AZITHROMYCIN 500 MG ORAL TABLET 1 PO q day x 6 days 03/02/23 AZITHROMYCIN 500 MG ORAL TABLET 3926782 AZITHROMYCIN Inactive ZITHROMAX 250 MG ORAL TABLET 2 po today, then 1 po q days 2-5 20 09/23/25 ZITHROMAX 250 MG ORAL TABLET 255329 AZITHROMYCIN Amigo ctive ZITHROMAX 250 MG ORAL TABLET 2 po today, then 1 po q days 2-5 20 10/03/08 ZITHROMAX 250 MG ORAL TABLET 575566 AZITHROMYCIN Arlen ctive ZITHROMAX 250 MG ORAL TABLET 2 po today, then 1 po q days 2-5 20 06/08/16 ZITHROMAX 250 MG ORAL TABLET 871600 AZITHROMYCIN Amigo ctive AZITHROMYCIN 250 MG ORAL TABLET 2 po qd x 1 day, then 1 po q d x 4 days AZITHROMYCIN 250 MG ORAL TABLET 624600 AZITHROMY ALLISON Inactive AZITHROMYCIN 250 MG ORAL TABLET 2 po qd x 1 day, then 1 po q d x 4 days AZITHROMYCIN 250 MG ORAL TABLET 886090 AZITHROMY ALLISON Inactive CEFDINIR 300 MG ORAL CAPSULE 1 po BID x 10 days 12/18 CEFDINIR 300 MG ORAL CAPSULE 20030127 CEFDINIR Inactive CEFDINIR 300 MG ORAL CAPSULE 1 po BID x 10 days CEFDINIR 300 MG ORAL CAPSULE 20030127 CEFDINIR Inactive ZOFRAN ODT 4 MG ORAL TABLET DISINTEGRATING 1 po q6hr PRN Nausea ZOFRAN ODT 4 MG ORAL TABLET DISINTEGRATING 079809 ONDAN SETRON Inactive PROTONIX 40 MG ORAL TABLET DELAYED RELEASE 1 po q a.m. PROTONIX 40 MG ORAL TABLET DELAYED RELEASE 049160 PANTOPRAZOLE SODI UM Inactive ZITHROMAX Z-EMIL 250 MG ORAL TABLET 2 today, then 1 daily for 4 d ays ZITHROMAX Z-EMIL 250 MG ORAL TABLET 819367 AZITHROMYCIN Inactive ZITHROMAX Z-EMIL 250 MG ORAL TABLET 2 today, then 1 daily for 4 d ays ZITHROMAX Z-EMIL 250 MG ORAL TABLET 378310 AZITHROMYCIN Inactive FLONASE 50 MCG/ACT NASAL SUSPENSION 1 spray each nostr il twice daily for allergies and runny nose until gone FLON ASE 50 MCG/ACT NASAL SUSPENSION 4655936 FLUTICASONE PROPIONATE Inactive MUCINEX 600 MG ORAL TABLET EXTENDED RELEASE 12 HOUR Ta ke 1-2 tablets every 12 hours MUCINEX 600 MG ORAL TABLET EXTENDED RELEA SE 12 HOUR GUAIFENESIN Inactive COMTREX COLD/COUGH DAY/NITE MS 5-2-10-325 MG ORAL 2 caps deja ry 4 hours COMTREX COLD/COUGH DAY/NITE MS 5-2-10-325 MG ORA L [id number] Inactive GUAIFENESIN-CODEINE 100-10 MG/5ML ORAL SYRUP 2 tsp every 6 hours prn GUAIFENESIN-CODEINE 100-10 MG/5ML ORAL SYRUP 477243 GUAIFENESIN-CODEINE Inactive VITAMINS 0.8 MG ORAL TABLET take 1 tab po qday VITAMINS 0.8 MG ORAL TABLET [id number] E-FA Inactive [facility] TUSSIN COUGH/COLD CF 5-10-100 MG/5ML ORAL LIQUID 2 teasp oons every 4 hours [facility] TUSSIN COUGH/COLD CF 5-10-100 MG/5ML ORAL LI QUID SOBOQBYFNYPIC-VL-YT Inactive ZYRTEC ALLERGY 10 MG ORAL CAPSULE 1 po qd ZYRTEC ALLERGY 10 MG ORAL CAPSULE CETIRIZINE HCL Inactive CHLORASEPTIC MAX SORE THROAT 15-10 MG MOUTH/THROAT LOZENGE 1 every 2 hours prn CHLORASEPTIC MAX SORE THROAT 15-10 MG MOUTH/THROAT LOZENGE BENZOCAINE-MENTHOL Inactive TUSSIONEX PENNKINETIC ER 10-8 MG/5ML ORAL [...] Unit Range Description Lab Report: CBC, Quant [facility] [place] - Hematology leukocyte count, blood 7.8 10^3/MM^3 [...] 263 10^3/MM^3 10*3/mm3 142-424 Lab Report: Chlamydia/GC APTIMA/16621 - Lab chlamydia DNA probe NOT DETECTED NOT DETECTED Lab Report: Chlamydia/GC APTIMA/73970 - Microbiology Neisseria gonorrhoeae DNA probe NOT DETECTED NO T DETECTED Lab Report: UADIP W/MICRO, AUTO - Chemis try RBC, urine, dipstick Negative Negative protein, total urine random Negative mg/dL Negative RBC, urine, dipstick 1+ Negative protein, total urine random Negative mg/dL Negative Lab Report: UADIP W/MICRO, AUTO - Urinal ysis pH, urine, semiquantitative 7.0 5.0-8.5 specific gravity, urine 1.025 1.000-1.030 appearance, urine Clear Clear urine color Yellow Colorless;Lightyellow;St raw;Yellow glucose, urine, semiquantitative Negative Neg ative ketones, urine, by test strip Negative Negati ve bilirubin, urine Negative Negative urobilinogen, urine, semiquantitative (dipstick) 0.2 E .U./dL [...] 5.0-8.5 Encounters Code Encounter Date Provider Facility CPT-86875 Level 3 Est. Patient 10:21:41 REGIONAL SAFETY MANAGER Arie mcqueen MD [facility] CPT-20927 Level 3 Est. Patient 11:35:15 REGIONAL SAFETY MANAGER Arie mcqueen MD [facility] CPT-27467 Level 3 Est. Patient 15:40:28 CDT Steve FISHING VESSEL OPERATOR [facility] CPT-33053 Level 3 Est. Patient 16:40:36 CDT Arie mcqueen MD [facility] CPT-63405 Level 4 Est. Patient 15:29:22 REGIONAL SAFETY MANAGER Arie mcqueen MD [facility] CPT-65984 Level 3 Est. Patient 15:18:16 REGIONAL SAFETY MANAGER Jono black [facility] CPT-42057 Level 4 Est. Patient 12:08:40 REGIONAL SAFETY MANAGER Steve FISHING VESSEL OPERATOR [facility] CPT-09677 Level 3 Est. Patient 09:24:42 CDT Steve [facility] [place] CPT-01314 Level 3 Est. Patient 09:12:56 CDT Arie mcqueen MD [facility] CPT-18657 Level 3 Est. Patient 16:40:54 CDT Jose Zhong MD [facility] CPT-73847 Level 2 Est. Patient 13:01:13 CDT [facility] [place] CPT-79924 Level 3 Est. Patient 11:55:30 REGIONAL SAFETY MANAGER Jono black [facility] CPT-73027 Level 3 Est. Patient 09:52:36 REGIONAL SAFETY MANAGER Steve FISHING VESSEL OPERATOR [facility] CPT-26498 Level 3 Est. Patient 16:25:33 REGIONAL SAFETY MANAGER Rich oRsales MD [facility] CPT-06035 Level 3 Est. Patient 20:33:55 CDT Arie mcqueen MD [facility] CPT-70030 Level 3 Est. Patient 14:18:20 CDT Rich Rosales MD [facility] CPT-58407 Level 4 Est. Patient 09:34:31 CDT Arie mcqueen MD [facility] CPT-81583 Level 3 Est. Patient 09:08:55 REGIONAL SAFETY MANAGER Liliana vincent MD [facility] CPT-08743 Level 3 Est. Patient 16:44:07 REGIONAL SAFETY MANAGER Arie mcqueen MD [facility] CPT-91727 Level 3 Est. Patient 10:44:27 CDT Arie mcqueen MD [facility] CPT-03596 Level 3 Est. Patient 08:55:41 CDT Jose Zhong MD [facility] CPT-16448 Level 3 Est. Patient 18:37:31 CDT Liliana vinecnt MD PhD [facility] CPT-27640 Level 3 Est. Patient 14:28:23 CDT Abelardo HERNANDEZ [facility] CPT-03456 Level 3 Est. Patient 15:18:13 REGIONAL SAFETY MANAGER Arie mcqueen MD [facility] CPT-29618 Level 3 Est. Patient 10:11:29 REGIONAL SAFETY MANAGER Arie mcqueen MD [facility] CPT-90076 Level 3 Est. Patient 10:55:57 REGIONAL SAFETY MANAGER Jono black DO [facility] CPT-03362 Level 3 Est. Patient 17:29:05 CDT Arie mcqueen MD [facility] Procedures Code Procedure Name Date Entry Date Standard Desc ription CPT-27997 Nexplanon Removal 15:40:28 CDT CPT-74601 Sono transvag pelvis non OB uterus ovari es cervix - XRAY USE ONLY 08:58:14 REGIONAL SAFETY MANAGER CPT-50475 UA w micro - LAB USE ONLY 16:04:56 REGIONAL SAFETY MANAGER 2015 CPT-13550 Wet Prep/GEN - LAB USE ONLY 16:04:56 REGIONAL SAFETY MANAGER 20 08/10/29 CPT-63715 First Vx - Ix admin via ID I M or jet injects without counseling by physician 16:57:10 CDT CPT-57382 Fluzone Preservative Free Intramuscular Suspension 16:57:10 CDT CPT-J0696 Rocephin 1000 mg (Ceftriaxone) 11:49:23 CDT CPT-J1040 Depo Medrol 80 mg (Methyl Prednisolone A cetate) 11:49:23 CDT CPT-J1100 Decadron 8mg (Dexamethasone) 11:49:23 CDT 2 CPT-45188 Abx/Therapy Injection 11:49:23 CDT CPT-52113 Abx/Therapy Injection 11:49:23 CDT CPT-91902 Abd compl w upright 09:07:26 REGIONAL SAFETY MANAGER CPT-43942 Ear Wash 16:12:47 REGIONAL SAFETY MANAGER CPT-OV Office Visit 11:12:01 CDT CPT-OV Office Visit 15:30:23 CDT CPT-68628 Sono pelvis non OB uterus ovaries cervix 15:50:44 CDT CPT-98590 Hand comp min 3V 16:42:32 CDT CPT-23888 Abd compl w upright 12:17:01 CDT CPT-32722 Nexplanon Placement 15:07:39 REGIONAL SAFETY MANAGER CPT-01557 Removal of IUD 15:07:39 REGIONAL SAFETY MANAGER CPT-08589 TB Tubersol 12:09:32 CDT CPT-54211 TB Tubersol 13:55:43 CDT
--- OUTSIDE RECORDS SUMMARY | 2020-03-03 07:39 | XMS REPORT | Clinical Summary ---
Author Author Admin, Diamante Marcelo Organization [employer] Address Unknown Phone Unavailable Allergies, Adverse Reactions, [...] of unspecified site Allergic rhinitis 477.9 Active Biri Russ APRN Allergic rhinitis, cause unspecified Abdominal [...] implantable subdermal contraceptiv e Active Brii Russ [employer]UE [employer]ICER Vaginal bleeding 623.8 Active Arie Casper MD Other specified noninflammatory disorders of vagina Influenza like illness 487.1 Active Jose Mcwilliams MD Influenza with other respiratory manifestations Sinusitis 473.9 Active Jessica Heaton [employer]IEF REVENUE OFFICER Unspecified sinusitis (chronic) BREAST CANCER ICD-V16.3 Inactive [...] po q12hr PRN Cough HYDROCOD POLST-CHLORPHEN POLST 57029290657 Active Arie Casper MD Active GUAIFENESIN DM 400-20 MG ORAL TABLET 1 pill by mouth t wice daily, if needed for cough DEXTROMETHORPHAN-GUAIFENESIN 81326194431 Active Jiborisina Florina CABRERA Active CEFDINIR 300 MG ORAL CAPSULE 1 po BID x 10 days CEFDINIR 03402305982 Active Jillina Franaomi PAREKHN Active CHERATUSSIN AC 100-10 MG/5ML ORAL SYRUP 1 tsp by mouth every 4 hours as needed for cough GUAIFENESIN-CODEINE 49402093571 No Longe r Active Waynellina Florina CABRERA Active TAMIFLU 75 MG ORAL CAPSULE 1 po BID x 5 days 0 OSELTAMIVIR PHOSPHATE 86131005138 No Longer Active Jose Zhong MD Activ e ZITHROMAX Z-EMIL 250 MG ORAL TABLET 2 today, then 1 daily for 4 d ays AZITHROMYCIN 26199078622 No Longer Active Arie Casper MD Active PROTONIX 40 MG ORAL TABLET DELAYED RELEASE 1 po q a.m. PANTOPRAZOLE SODIUM 03865571043 No Longer Active Arie Casper MD Active BACTRIM DS 800-160 MG ORAL TABLET 1 tab by mouth twice daily 201 05/02/30 TRIMETHOPRIM-SULFAMETHOXAZOLE 36556014448 No Longer Active R bianca Crawford Active NEXPLANON IMPLANT right arm subcutaneously ETONOGESTREL IMPL 35336795394 No Longer Active Brii Arell [employer]F REVENUE OFFICER Active TUSSIONEX PENNKINETIC ER 10-8 MG/5ML ORAL SUSPENSION E XTENDED RELEASE 5ml po q12hr PRN Cough HYDROCOD POLST-CHLORPHEN POLST 5 3032289684 No Longer Active Brii Russ [employer]IEF REVENUE OFFICER Active CETIRIZINE HCL 10 MG ORAL TABLET 1 po qd PRN Allergies CETIRIZINE HCL 40171297180 No Longer Active Brii Russ [employer]IEF REVENUE OFFICER Activ e PREDNISONE 20 MG ORAL TABLET 2 tabs daily for 3 days, 1 tab daily for 3 days, 1/2 tab daily for 2 days PREDNISONE 50715843209 No Longer Active Arie Casper MD Active LOMOTIL 2.5-0.025 MG ORAL TABLET 1 tab po four times a day as needed for diarrhea DIPHENOXYLATE-ATROPINE 09179827995 No Lo nger Active Arie Casper MD Active ZOLOFT 50 MG ORAL TABLET 1 tablet by mouth daily 12/08 SERTRALINE HCL 28704740454 No Longer Active Arie Casper MD Ac tive NAPROXEN 500 MG ORAL TABLET Take 1 tab BID NAPR OXEN 92227446227 No Longer Active Arie Casper MD Active CEFDINIR 300 MG ORAL CAPSULE 1 po BID x 10 days CEFDINIR 05643682383 No Longer Active Brii Russ APRN Active PREDNISONE 20 MG ORAL TABLET 1 tablet daily for airway inflammat ion PREDNISONE 02173231793 No Longer Active Brii Russ APRN A ctive CEFDINIR 300 MG ORAL CAPSULE 1 po BID x 10 days CEFDINIR 59973548500 No Longer Active Jono Gagnon DO Active FLONASE 50 MCG/ACT NASAL SUSPENSION 1 spray each nostr il twice daily for allergies and runny nose until gone FLUT ICASONE PROPIONATE 65604860450 No Longer Active Jono Gagnon DO Active ALPRAZOLAM 0.25 MG ORAL TABLET 1 tablet by mouth every 8 hours as needed for stress ALPRAZOLAM 30473448022 No Longer Active Jono Gagnon DO Active ZITHROMAX Z-EMIL 250 MG ORAL TABLET 2 today, then 1 daily for 4 d ays AZITHROMYCIN 08788197342 No Longer Active Arie Casper MD Active PREDNISONE 20 MG ORAL TABLET 2 tabs daily for 3 days, 1 tab daily for 3 days, 1/2 tab daily for 2 days PREDNISONE 00669168731 No Longer Active Brii Arell [employer]IEF REVENUE OFFICER Active PREDNISONE 20 MG ORAL TABLET 1 tablet twice daily for 2 days, then 1 tablet once daily for 2 days PREDNISONE 11581124039 No Longer Active Brii Russ APRN Active PROMETHAZINE HCL 12.5 MG ORAL TABLET 1 tablet by mouth every 6 hours as needed for nausea/vomiting PROMETHAZINE HCL 87923323594 No L onger Active Jono Gagnon DO Active CITRATE OF MAGNESIA ORAL SOLUTION 1 bottle today for constipatio n MAGNESIUM CITRATE 32040620828 No Longer Active Jono Gagnon DO Active ZOFRAN 4 MG ORAL TABLET 1 TAB PO Q 6 HRS PRN NAUSEA 07/10/15 ONDANSETRON HCL 72773472351 No Longer Active Brii Russ APRN Acti ve LOMOTIL 2.5-0.025 MG ORAL TABLET 1 to 2 four times a day as needed for diarrhea DIPHENOXYLATE-ATROPINE 51775061275 No Longer Active January Russ APRN Active AMOXICILLIN 500 MG ORAL TABLET 2 tabs twice a day for 10 days 07/09/11 AMOXICILLIN 19858574851 No Longer Active Brii Areboris CABRERA Active CYCLOBENZAPRINE HCL 10 MG ORAL TABLET 1/2 - 1 tablet b y mouth three times daily as needed for muscle spasm/pain CYCLOBENZAPRINE HCL 93279881692 No Longer Active Arie Casper MD Active LOMOTIL 2.5-0.025 MG ORAL TABLET 1 to 2 four times a day as needed for diarrhea DIPHENOXYLATE-ATROPINE 58568617609 No Longer Active D freddy Casper MD Active MACROBID 100 MG ORAL CAPSULE 1 cap by mouth twice daily NITROFURANTOIN MONOHYD MACRO 26612835975 No Longer Active Arie Casper MD Active ZYRTEC ALLERGY 10 MG ORAL CAPSULE 1 po qd CE TIRIZINE HCL 05093036949 No Longer Active Arie Casper MD Active AZITHROMYCIN 250 MG ORAL TABLET 2 po qd x 1 day, then 1 po q d x 4 days AZITHROMYCIN 00867693005 No Longer Active Jillina Fra naomi [employer]IEF REVENUE OFFICER Active PREDNISONE 20 MG ORAL TABLET 2 tabs daily for 3 days, 1 tab daily for 3 days, 1/2 tab daily for 2 days PREDNISONE 18812359600 No Longer Active Jillina Fradeepl [employer]IEF REVENUE OFFICER Active PROMETHAZINE HCL 25 MG ORAL TABLET 1 four times a day as nee ded for vomiting PROMETHAZINE HCL 01513978169 No Longer Active Myrna Roberto MD Active BACTRIM DS 800-160 MG ORAL TABLET 1 twice a day 05/30 SULFAMETHOXAZOLE-TRIMETHOPRIM 30464865882 No Longer Active Myrna Roberto MD Active VICKS DAYQUIL SEVERE COLD/FLU TABLET 1 tab every 6 hours prn 201 02/22/17 [id number] TABS 99009364880 No Longer Active Chris Roberto MD Active GUAIFENESIN-CODEINE 100-10 MG/5ML ORAL SYRUP 2 tsp every 6 hours prn GUAIFENESIN-CODEINE 16326283511 No Longer Active Myrna Roberto MD Active NAPROXEN 500 MG ORAL TABLET one tab PO BID NAPR OXEN 71617328635 No Longer Active Myrna Roberto MD Active AUGMENTIN 875-125 MG ORAL TABLET 1 tab by mouth twice daily with food AMOXICILLIN-POT CLAVULANATE 83833048671 No Longer Act zaid Liliana C Madril MD PhD Active AMOXICILLIN 500 MG ORAL CAPSULE 1 tab by mouth 3 times daily 201 02/21/05 AMOXICILLIN 09246263050 No Longer Active Liliana Estrada MD PhD Active TESSALON PERLES 100 MG ORAL CAPSULE 1 tablet by mouth 3 times da cory BENZONATATE 99083528443 No Longer Active Liliana Estrada MD PhD Active FLAGYL 500 MG ORAL TABLET 1 tablet by mouth two times daily 2014 METRONIDAZOLE 34096207462 No Longer Active Nilamnory Plattkatie Ac tive ZITHROMAX 250 MG ORAL TABLET 2 po today, then 1 po q days 2-5 20 06/08/16 AZITHROMYCIN 51056383744 No Longer Active Arie Casper MD Active VITAMINS 0.8 MG ORAL TABLET take 1 tab po qday [id number] 40237649398 No Longer Active Arie Casper MD Active IBUPROFEN 800 MG ORAL TABLET take one po Q 8 hours 201 02/01/16 IBUPROFEN 83998558373 No Longer Active Arie Casper MD Acti ve [facility] TUSSIN COUGH/COLD CF 5-10-100 MG/5ML ORAL LIQUID 2 teasp oons every 4 hours [id number] 87136875612 No Longer Active Blaine Casper MD Active COMTREX COLD/COUGH DAY/NITE MS 5-2-10-325 MG ORAL 2 caps deja ry 4 hours [id number]-[id number]-APAP 64881167715 No Longer Active Da aleksandra Casper MD Active CHLORASEPTIC MAX SORE THROAT 15-10 MG MOUTH/THROAT LOZENGE 1 every 2 hours prn BENZOCAINE-MENTHOL 68731614573 No Longer Active Arie Casper MD Active PREDNISONE 20 MG ORAL TABLET 2 tabs daily for 3 days, 1 tab daily for 3 days, 1/2 tab daily for 2 days PREDNISONE 55643655399 No Longer Active Jose Zhong MD Active AZITHROMYCIN 250 MG ORAL TABLET 2 po qd x 1 day, then 1 po q d x 4 days AZITHROMYCIN 63875842211 No Longer Active Jose Mcwilliams MD Active ZOFRAN ODT 4 MG ORAL TABLET DISINTEGRATING 1 po q6hr PRN Nausea ONDANSETRON 65602753942 No Longer Active Rich Rosales MD Active ZOFRAN 4 MG ORAL TABLET 1 tablet every 4 hours ONDANSETRON HCL 62996334877 No Longer Active Rich Rosales MD Activ e MUCINEX 600 MG ORAL TABLET EXTENDED RELEASE 12 HOUR Ta ke 1-2 tablets every 12 hours GUAIFENESIN 40199708611 No Longer Active Rich Rosales MD Active BACTRIM 400-80 MG ORAL TABLET take one po BID SULFAMETHOXAZOLE-TRIMETHOPRIM 20985374476 No Longer Active Abelardo HERNANDEZ Active AZITHROMYCIN 500 MG ORAL TABLET 1 PO q day x 6 days 20 03/02/23 AZITHROMYCIN 72515994117 No Longer Active Tin HERNANDEZ Activ e ZITHROMAX 250 MG ORAL TABLET 2 po today, then 1 po q days 2-5 20 10/03/08 AZITHROMYCIN 01708729411 No Longer Active Arie Casper MD Active ZITHROMAX 250 MG ORAL TABLET 2 po today, then 1 po q days 2-5 20 09/23/25 AZITHROMYCIN 78211114793 No Longer Active Arie Casper MD Active AMOXICILLIN 500 MG ORAL CAPSULE 1 tab by mouth 3 times daily 201 11/24/09 AMOXICILLIN 98322972242 No Longer Active Arie Casper MD Active BACTRIM DS 800-160 MG ORAL TABLET 1 tab by mouth twice daily 201 11/03/14 TRIMETHOPRIM-SULFAMETHOXAZOLE 37450931781 No Longer Active Fozia Casper MD Active AMOXICILLIN 500 MG ORAL TABLET take 1 tab po TID 08/05 AMOXICILLIN 31966366799 No Longer Active Arie Casper MD Acti [...] 4 hours ZOFRAN 4 MG ORAL TABLET 701350 ONDANSETRON HCL Inactive ZOFRAN ODT 4 MG ORAL TABLET DISINTEGRATING 1 po q6hr PRN Nausea ZOFRAN ODT 4 MG ORAL TABLET DISINTEGRATING 333165 ONDAN SETRON Inactive CHLORASEPTIC MAX SORE THROAT 15-10 MG MOUTH/THROAT LOZENGE 1 every 2 hours prn CHLORASEPTIC MAX SORE THROAT 15-10 MG MOUTH/THROAT LOZENGE BENZOCAINE-MENTHOL Inactive COMTREX COLD/COUGH DAY/NITE MS 5-2-10-325 MG ORAL 2 caps deja ry 4 hours COMTREX COLD/COUGH DAY/NITE MS 5-2-10-325 MG ORA L [id number] Inactive [facility] TUSSIN COUGH/COLD CF 5-10-100 MG/5ML ORAL LIQUID 2 teasp oons every 4 hours [facility] TUSSIN COUGH/COLD CF 5-10-100 MG/5ML ORAL LI QUID [id number] Inactive IBUPROFEN 800 MG ORAL TABLET take one po Q 8 hours 201 02/01/16 IBUPROFEN 800 MG ORAL TABLET IBUPROFEN Inactive VITAMINS 0.8 MG ORAL TABLET take 1 tab po qday VITAMINS 0.8 MG ORAL TABLET [id number] E-FA Inactive TESSALON PERLES 100 MG ORAL CAPSULE 1 tablet by mouth 3 times da cory TESSALON PERLES 100 MG ORAL CAPSULE 793307 BENZONATATE Inactive AMOXICILLIN 500 MG ORAL CAPSULE 1 tab by mouth 3 times daily 201 02/21/05 AMOXICILLIN 500 MG ORAL CAPSULE 622258 AMOXICILLIN Inactive GUAIFENESIN-CODEINE 100-10 MG/5ML ORAL SYRUP 2 tsp every 6 hours prn GUAIFENESIN-CODEINE 100-10 MG/5ML ORAL SYRUP 233103 GUAIFENESIN-CODEINE Inactive VICKS DAYQUIL SEVERE COLD/FLU TABLET 1 tab every 6 hours prn 201 02/22/17 VICKS DAYQUIL SEVERE COLD/FLU TABLET PHENYLEPHRI [id number]-GV-APAP TABS Inactive BACTRIM DS 800-160 MG ORAL TABLET 1 twice a day 05/30 BACTRIM DS 800-160 MG ORAL TABLET 142511 SULFAMETHOXAZOLE-TRIMETHOPRIM Inactiv e PROMETHAZINE HCL 25 MG ORAL TABLET 1 four times a day as nee ded for vomiting PROMETHAZINE HCL 25 MG ORAL TABLET 815642 PROMETHAZINE HCL Inactive ZYRTEC ALLERGY 10 MG ORAL CAPSULE 1 po qd ZYRTEC ALLERGY 10 MG ORAL CAPSULE CETIRIZINE HCL Inactive MACROBID 100 MG ORAL CAPSULE 1 cap by mouth twice daily MACROBID 100 MG ORAL CAPSULE 8939847 NITROFURANTOIN MONOHYD MACRO In active LOMOTIL 2.5-0.025 MG ORAL TABLET 1 to 2 four times a day as needed for diarrhea LOMOTIL 2.5-0.025 MG ORAL TABLET 4496096 DIPHENOXYLATE-ATROPINE Inactive CYCLOBENZAPRINE HCL 10 MG ORAL TABLET 1/2 - 1 tablet b y mouth three times daily as needed for muscle spasm/pain CYCLOBEN ZAPRINE HCL 10 MG ORAL TABLET 096261 CYCLOBENZAPRINE HCL Inactive AMOXICILLIN 500 MG ORAL TABLET 2 tabs twice a day for 10 days 20 07/09/11 AMOXICILLIN 500 MG ORAL TABLET 229346 AMOXICILLIN I nactive LOMOTIL 2.5-0.025 MG ORAL TABLET 1 to 2 four times a day as needed for diarrhea LOMOTIL 2.5-0.025 MG ORAL TABLET 1191745 DIPHENOXYLATE-ATROPINE Inactive ZOFRAN 4 MG ORAL TABLET 1 TAB PO Q 6 HRS PRN NAUSEA 20 07/10/15 ZOFRAN 4 MG ORAL TABLET 197724 ONDANSETRON HCL Inactive CITRATE OF MAGNESIA ORAL SOLUTION 1 bottle today for constipatio n CITRATE OF MAGNESIA ORAL SOLUTION 4171553 MAGNESIUM CITR ATE Inactive PROMETHAZINE HCL 12.5 MG ORAL TABLET 1 tablet by mouth every 6 hours as needed for nausea/vomiting PROMETHAZINE HCL 12.5 MG ORA L TABLET 564198 PROMETHAZINE HCL Inactive PREDNISONE 20 MG ORAL TABLET 1 tablet twice daily for 2 days, then 1 tablet once daily for 2 days PREDNISONE 20 MG ORAL TABLET 268110 PREDNISONE Inactive ALPRAZOLAM 0.25 MG ORAL TABLET 1 tablet by mouth every 8 hours as needed for stress ALPRAZOLAM 0.25 MG ORAL TABLET 497283 ALPRA ZOLAM Inactive FLONASE 50 MCG/ACT NASAL SUSPENSION 1 spray each nostr il twice daily for allergies and runny nose until gone FLON ASE 50 MCG/ACT NASAL SUSPENSION 5909032 FLUTICASONE PROPIONATE Inactive PREDNISONE 20 MG ORAL TABLET 1 tablet daily for airway inflammat ion PREDNISONE 20 MG ORAL TABLET 689844 PREDNISONE [place] ctive NAPROXEN 500 MG ORAL TABLET Take 1 tab BID NAPROXEN 500 MG ORAL TABLET 394076 NAPROXEN Inactive ZOLOFT 50 MG ORAL TABLET 1 tablet by mouth daily 12/08 ZOLOFT 50 MG ORAL TABLET 135883 SERTRALINE HCL Inactive LOMOTIL 2.5-0.025 MG ORAL TABLET 1 tab po four times a day as needed for diarrhea LOMOTIL 2.5-0.025 MG ORAL TABLET 7374570 DIPHENOXYLATE-ATROPINE Inactive CETIRIZINE HCL 10 MG ORAL TABLET 1 po qd PRN Allergies CETIRIZINE HCL 10 MG ORAL TABLET 1433011 CETIRIZINE HCL Inactiv e TUSSIONEX PENNKINETIC ER 10-8 MG/5ML ORAL SUSPENSION E XTENDED RELEASE 5ml po q12hr PRN Cough TUSSIONEX PENNKINETI C ER 10-8 MG/5ML ORAL SUSPENSION EXTENDED RELEASE HYDROCOD POLST-CHLORPHEN POLST I nactive NEXPLANON IMPLANT right arm subcutaneously NEXPLANON IMPLANT ETONOGESTREL IMPL Inactive PROTONIX 40 MG ORAL TABLET DELAYED RELEASE 1 po q a.m. PROTONIX 40 MG ORAL TABLET DELAYED RELEASE 255374 PANTOPRAZOLE SODI UM Inactive CHERATUSSIN AC 100-10 MG/5ML ORAL SYRUP 1 tsp by mouth every 4 hours as needed for cough CHERATUSSIN AC 100-10 MG/5ML ORAL SYRUP 9 83426 GUAIFENESIN-CODEINE Inactive AMOXICILLIN 500 MG ORAL TABLET take 1 tab po TID 08/05 AMOXICILLIN 500 MG ORAL TABLET 587094 AMOXICILLIN Inactive AMOXICILLIN 500 MG ORAL CAPSULE 1 tab by mouth 3 times daily 201 11/24/09 AMOXICILLIN 500 MG ORAL CAPSULE 873777 AMOXICILLIN Inactive ZITHROMAX 250 MG ORAL TABLET 2 po today, then 1 po q days 2-5 20 09/23/25 ZITHROMAX 250 MG ORAL TABLET 507177 AZITHROMYCIN [place] ctive ZITHROMAX 250 MG ORAL TABLET 2 po today, then 1 po q days 2-5 20 10/03/08 ZITHROMAX 250 MG ORAL TABLET 196261 AZITHROMYCIN [place] ctive AZITHROMYCIN 500 MG ORAL TABLET 1 PO q day x 6 days 03/02/23 AZITHROMYCIN 500 MG ORAL TABLET 7658386 AZITHROMYCIN Inactive BACTRIM 400-80 MG ORAL TABLET take one po BID BACTRIM 400- 80 MG ORAL TABLET 631036 SULFAMETHOXAZOLE-TRIMETHOPRIM Inactive AZITHROMYCIN 250 MG ORAL TABLET 2 po qd x 1 day, then 1 po q d x 4 days AZITHROMYCIN 250 MG ORAL TABLET 042202 AZITHROMY ALLISON Inactive PREDNISONE 20 MG ORAL TABLET 2 tabs daily for 3 days, 1 tab daily for 3 days, 1/2 tab daily for 2 days PREDNISONE 20 MG ORAL T ABLET 042789 PREDNISONE Inactive ZITHROMAX 250 MG ORAL TABLET 2 po today, then 1 po q days 2-5 20 06/08/16 ZITHROMAX 250 MG ORAL TABLET 860523 AZITHROMYCIN [place] ctive FLAGYL 500 MG ORAL TABLET 1 tablet by mouth two times daily 2014 FLAGYL 500 MG ORAL TABLET 189708 METRONIDAZOLE Inacti ve AUGMENTIN 875-125 MG ORAL TABLET 1 tab by mouth twice daily with food AUGMENTIN 875-125 MG ORAL TABLET 334606 AMOXICIL ELSA-POT CLAVULANATE Inactive NAPROXEN 500 MG ORAL TABLET one tab PO BID NAPROXEN 500 MG ORAL TABLET 224154 NAPROXEN Inactive PREDNISONE 20 MG ORAL TABLET 2 tabs daily for 3 days, 1 tab daily for 3 days, 1/2 tab daily for 2 days PREDNISONE 20 MG ORAL T ABLET 901173 PREDNISONE Inactive AZITHROMYCIN 250 MG ORAL TABLET 2 po qd x 1 day, then 1 po q d x 4 days AZITHROMYCIN 250 MG ORAL TABLET 989266 AZITHROMY ALLISON Inactive PREDNISONE 20 MG ORAL TABLET 2 tabs daily for 3 days, 1 tab daily for 3 days, 1/2 tab daily for 2 days PREDNISONE 20 MG ORAL T ABLET 106172 PREDNISONE Inactive ZITHROMAX Z-EMIL 250 MG ORAL TABLET 2 today, then 1 daily for 4 d ays ZITHROMAX Z-EMIL 250 MG ORAL TABLET 492931 AZITHROMYCIN Inactive CEFDINIR 300 MG ORAL CAPSULE 1 po BID x 10 days 12/18 CEFDINIR 300 MG ORAL CAPSULE 388411 CEFDINIR Inactive CEFDINIR 300 MG ORAL CAPSULE 1 po BID x 10 days CEFDINIR 300 MG ORAL CAPSULE 010311 CEFDINIR Inactive PREDNISONE 20 MG ORAL TABLET 2 tabs daily for 3 days, 1 tab daily for 3 days, 1/2 tab daily for 2 days PREDNISONE 20 MG ORAL T ABLET 006000 PREDNISONE Inactive BACTRIM DS 800-160 MG ORAL TABLET 1 tab by mouth twice daily 201 05/02/30 BACTRIM DS 800-160 MG ORAL TABLET 534080 TRIMETHOPRIM-SULFAMETHOXAZOLE Inactive ZITHROMAX Z-EMIL 250 MG ORAL TABLET 2 today, then 1 daily for 4 d ays ZITHROMAX Z-EMIL 250 MG ORAL TABLET 190898 AZITHROMYCIN Inactive TAMIFLU 75 MG ORAL CAPSULE 1 po BID x 5 days 0 TAMIFLU 75 MG ORAL CAPSULE 270337 OSELTAMIVIR PHOSPHATE Inactive Advance Directives Directive Description [...] Unit Range Description Lab Report: CBC, Quant [facility] - Hematology leukocyte count, blood 7.8 10^3/MM^3 [...] 5.0-8.5 Encounters Code Encounter Date Provider Facility CPT-48624 Level 3 Est. Patient 11:49:34 SUPPORT CLERK Jessica boyd [facility] CPT-79283 Level 3 Est. Patient 14:55:50 SUPPORT CLERK Jose Zhong MD [facility] CPT-89716 Level 3 Est. Patient 10:21:41 SUPPORT CLERK Arie mcqueen MD [facility] CPT-23333 Level 3 Est. Patient 11:35:15 SUPPORT CLERK Arie mcqueen MD [facility] CPT-47055 Level 3 Est. Patient 15:40:28 CDT Brii escalante [facility] CPT-22466 Level 3 Est. Patient 16:40:36 CDT Arie mcqueen MD [facility] CPT-88861 Level 4 Est. Patient 15:29:22 SUPPORT CLERK Arie mcqueen MD [facility] CPT-36776 Level 3 Est. Patient 15:18:16 SUPPORT CLERK Jono black DO [facility] CPT-70562 Level 4 Est. Patient 12:08:40 SUPPORT CLERK Rbii Are ll [employer]UE OFFICER [facility] CPT-47991 Level 3 Est. Patient 09:24:42 CDT Brii Are ll [employer]IE[employer]UE OFFICER [facility] CPT-70413 Level 3 Est. Patient 09:12:56 CDT Arie mcqueen MD [facility] CPT-91396 Level 3 Est. Patient 16:40:54 CDT Jose Zhong MD [facility] CPT-04878 Level 2 Est. Patient 13:01:13 CDT Brii Are ll [facility] CPT-06363 Level 3 Est. Patient 11:55:30 SUPPORT CLERK Jono black [facility] CPT-79005 Level 3 Est. Patient 09:52:36 SUPPORT CLERK Brii Are ll [facility] CPT-50430 Level 3 Est. Patient 16:25:33 SUPPORT CLERK Rich Rosales MD [facility] CPT-10816 Level 3 Est. Patient 20:33:55 CDT Arie mcqueen MD [facility] CPT-70831 Level 3 Est. Patient 14:18:20 CDT Rich Rosales MD [facility] CPT-03066 Level 4 Est. Patient 09:34:31 CDT Arie mcqueen MD [facility] CPT-31524 Level 3 Est. Patient 09:08:55 SUPPORT CLERK Liliana vincent MD PhD [facility] CPT-50475 Level 3 Est. Patient 16:44:07 SUPPORT CLERK Arie mcqueen MD [facility] CPT-80736 Level 3 Est. Patient 10:44:27 CDT Arie mcqueen MD [facility] CPT-62381 Level 3 Est. Patient 08:55:41 CDT Jose Zhong MD [facility] CPT-18498 Level 3 Est. Patient 18:37:31 CDT Liliana vincent MD PhD [facility] CPT-81286 Level 3 Est. Patient 14:28:23 CDT Abelardo HERNANDEZ [facility] CPT-23406 Level 3 Est. Patient 15:18:13 SUPPORT CLERK Arie mcqueen MD [facility] CPT-60452 Level 3 Est. Patient 10:11:29 SUPPORT CLERK Arie mcqueen MD [facility] CPT-09224 Level 3 Est. Patient 10:55:57 SUPPORT CLERK Jono Cheema ee DO [facility] CPT-28341 Level 3 Est. Patient 17:29:05 CDT Arie mcqueen MD [facility] Procedures Code Procedure Name Date Entry Date Standard Desc ription CPT-38966 Nexplanon Removal 15:40:28 CDT CPT-55573 Sono transvag pelvis non OB uterus ovari es cervix - XRAY USE ONLY 08:58:14 SUPPORT CLERK CPT-31500 UA w micro - LAB USE ONLY 16:04:56 SUPPORT CLERK 2015 CPT-10581 Wet Prep/GEN - LAB USE ONLY 16:04:56 SUPPORT CLERK 20 08/10/29 CPT-95626 First Vx - Ix admin via ID I M or jet injects without counseling by physician 16:57:10 CDT CPT-45883 Fluzone Preservative Free Intramuscular Suspension 16:57:10 CDT CPT-J0696 Rocephin 1000 mg (Ceftriaxone) 11:49:23 CDT CPT-J1040 Depo Medrol 80 mg (Methyl Prednisolone A cetate) 11:49:23 CDT CPT-J1100 Decadron 8mg (Dexamethasone) 11:49:23 CDT 2 CPT-52610 Abx/Therapy Injection 11:49:23 CDT CPT-91903 Abx/Therapy Injection 11:49:23 CDT CPT-51635 Abd compl w upright 09:07:26 SUPPORT CLERK CPT-80297 Ear Wash 16:12:47 SUPPORT CLERK CPT-OV Office Visit 11:12:01 CDT CPT-OV Office Visit 15:30:23 CDT CPT-16550 Sono pelvis non OB uterus ovaries cervix 15:50:44 CDT CPT-17100 Hand comp min 3V 16:42:32 CDT CPT-82356 Abd compl w upright 12:17:01 CDT CPT-29553 Nexplanon Placement 15:07:39 SUPPORT CLERK CPT-96735 Removal of IUD 15:07:39 SUPPORT CLERK CPT-89016 TB Tubersol 12:09:32 CDT CPT-94020 TB Tubersol 13:55:43 CDT
--- OUTSIDE RECORDS SUMMARY | 2020-03-03 07:40 | XMS REPORT | Clinical Summary ---
Author Author Admin, Diamante Marcelo Organization [facility] Address Unknown Phone Unavailable Allergies, [...] cute pharyngitis Nausea 787.02 Active Brii Larson RESTORATION TECHNICIAN Nausea alone URI 465.9 Active Jono Gagnon [...] Anxiety with depression 300.4 Active Glenn Larson RESTORATION TECHNICIAN Dysthymic disorder URI 465.9 Active Jono Gagnon [...] a day as needed for diarrhea DIPHENOXYLATE-ATROPINE 89634046725 No Longer Active Fozia Casper MD Active ZOLOFT 50 MG TAB 1 tablet by mouth daily SERTRA LINE HCL 53027005199 No Longer Active Arie Casper MD Active NAPROXEN 500 MG TAB Take 1 tab BID NAPROXEN 332 59619784 No Longer Active Arie Casper MD Active NEXPLANON IMPL Left arm subcutaneously ETONOGES TREL IMPL 81392186174 Active Brii Larson APRN Active CEFDINIR 300 MG CAPS 1 po BID x 10 days CEFDINI R 31665362803 No Longer Active Brii Larson APRN Active PREDNISONE 20 MG TAB 1 tablet daily for airway inflammation 2015 PREDNISONE 28003749021 No Longer Active Brii Larson APRN Active CEFDINIR 300 MG CAPS 1 po BID x 10 days CEFDINI R 21328739478 No Longer Active Jono Gagnon DO Active FLONASE 50 MCG/ACT SUSP 1 spray each nostril twice d aily for allergies and runny nose until gone FLUTICASONE PROPIONATE No Longe r Active Jono Gagnon DO Active ALPRAZOLAM 0.25 MG TAB 1 tablet by mouth every 8 hours as ne eded for stress ALPRAZOLAM 53507238989 No Longer Active Jono Gagnon DO Active ZITHROMAX Z-EMIL 250 MG TABS 2 today, then 1 daily for 4 days 201 03/31/18 AZITHROMYCIN 94878210419 No Longer Active Arie Casper MD Active PROTONIX 40 MG ORAL TBEC 1 po q a.m. PANTOPRAZO LE SODIUM 45602155594 Active Arie Casper MD Active PREDNISONE 20 MG TAB 2 tabs daily for 3 days, 1 t ab daily for 3 days, 1/2 tab daily for 2 days PREDNISONE 16778708695 No Longer Active Brii Larson APRN Active PREDNISONE 20 MG TAB 1 tablet twice daily for 2 d ays, then 1 tablet once daily for 2 days PREDNISONE 82253836231 No Longer Active Brii Larson APRN Active PROMETHAZINE HCL 12.5 MG TABS 1 tablet by mouth every 6 hours as needed for nausea/vomiting PROMETHAZINE HCL 37071138708 No Longe r Active Jono Gagnon DO Active CITRATE OF MAGNESIA ORAL SOLN 1 bottle today for constipation 20 07/10/15 MAGNESIUM CITRATE 20900878598 No Longer Active Jono Gagnon DO Active ZOFRAN 4 MG ORAL TABS 1 TAB PO Q 6 HRS PRN NAUSEA 2014 ONDANSETRON HCL 53509673095 No Longer Active Brii Larson APRN A ctive LOMOTIL 2.5-0.025 MG TAB 1 to 2 four times a day as needed f or diarrhea DIPHENOXYLATE-ATROPINE 77280254629 No Longer Active January Larson APRN Active AMOXICILLIN 500 MG TABS 2 tabs twice a day for 10 days AMOXICILLIN 67601770015 No Longer Active Brii Larson APRN Acti ve CYCLOBENZAPRINE HCL 10 MG TABS 1/2 - 1 tablet by mouth three times daily as needed for muscle spasm/pain CYCLOBENZAPRINE HCL 65075961663 No Longer Active Arie Casper MD Active LOMOTIL 2.5-0.025 MG TABS 1 to 2 four times a day as needed for diarrhea DIPHENOXYLATE-ATROPINE 97960484818 No Longer Active D freddy Casper MD Active MACROBID 100 MG CAP 1 cap by mouth twice daily NITROFURANTOIN MONOHYD MACRO 45453157051 No Longer Active Arie Casper MD Active ZYRTEC ALLERGY 10 MG CAPS 1 po qd CETIRIZINE HCL 29509928743 No Longer Active Arie Casper MD Active AZITHROMYCIN 250 MG TABS 2 po qd x 1 day, then 1 po qd x 4 days AZITHROMYCIN 72564810873 No Longer Active Jessica Heaton APRN Active PREDNISONE 20 MG TAB 2 tabs daily for 3 days, 1 t ab daily for 3 days, 1/2 tab daily for 2 days PREDNISONE 94464032213 No Longer Active Jessica Heaton APRN Active PROMETHAZINE HCL 25 MG TABS 1 four times a day as needed for vomiting PROMETHAZINE HCL 27859353412 No Longer Active Myrna Roberto MD Active BACTRIM DS 800-160 MG TABS 1 twice a day SULFAMETHOXAZOLE-TRIMETHOPRIM 03642197281 No Longer Active Myrna Roberto MD Active VICKS DAYQUIL SEVERE COLD/FLU TABS 1 tab every 6 hours prn 12/10 [id number] TABS 21712749999 No Longer Active Myrna leigh MD Active GUAIFENESIN-CODEINE 100-10 MG/5ML ORAL SYRP 2 tsp every 6 hours prn GUAIFENESIN-CODEINE 42171707524 No Longer Active Myrna Roberto MD Active NAPROXEN 500 MG TAB one tab PO BID NAPROXEN 332 60137873 No Longer Active Myrna Roberto MD Active AUGMENTIN 875-125 MG TAB 1 tab by mouth twice daily with food 08/12/16 AMOXICILLIN-POT CLAVULANATE 02192486605 No Longer Active Liliana Estrada MD PhD Active AMOXICILLIN 500 MG CAP 1 tab by mouth 3 times daily 08/12/16 AMOXICILLIN 83875982234 No Longer Active Liliana Estrada MD PhD Acti ve TESSALON PERLES 100 MG CAP 1 tablet by mouth 3 times daily 11/01 BENZONATATE 55788757583 No Longer Active Liliana Estrada MD PhD Active FLAGYL 500 MG TAB 1 tablet by mouth two times daily 07/11/29 METRONIDAZOLE 82597421315 No Longer Active Nilam Raida Active ZITHROMAX 250 MG TAB 2 po today, then 1 po q days 2-5 AZITHROMYCIN 35820307935 No Longer Active Arie Casper MD Acti ve VITAMINS 0.8 MG TABS take 1 tab po qday 08/08 [id number] 52579457694 No Longer Active Arie Casper MD Active IBUPROFEN 800 MG TABS take one po Q 8 hours IBU PROFEN 62103415010 No Longer Active Arie Casper MD Active [facility] TUSSIN COUGH/COLD CF 5-10-100 MG/5ML LIQD 2 teaspoons ev eliud 4 hours [id number] 51888760016 No Longer Active Blaine Casper MD Active COMTREX COLD/COUGH DAY/NITE MS 5-2-10-325 MG MISC 2 caps deja ry 4 hours [id number] 82041038675 No Longer Active Da aleksandra Casper MD Active CHLORASEPTIC MAX SORE THROAT 15-10 MG LOZG 1 every 2 hours prn 2 BENZOCAINE-MENTHOL 74266578997 No Longer Active Arie Marcelo Active PREDNISONE 20 MG TAB 2 tabs daily for 3 days, 1 t ab daily for 3 days, 1/2 tab daily for 2 days PREDNISONE 84551986496 No Longer Active Jose Zhong MD Active AZITHROMYCIN 250 MG TABS 2 po qd x 1 day, then 1 po qd x 4 days AZITHROMYCIN 17992530851 No Longer Active Jose Zhong MD Active ZOFRAN ODT 4 MG TBDP 1 po q6hr PRN Nausea ONDAN SETRON 94488302203 No Longer Active Rich Rosales MD Active ZOFRAN 4 MG TABS 1 tablet every 4 hours ONDANSE JERRELL HCL 83145576816 No Longer Active Rich Rosales MD Active MUCINEX 600 MG [id number]-VEP Take 1-2 tablets every 12 hours GUAIFENESIN 84528220682 No Longer Active Rich Rosales MD Activ e BACTRIM 400-80 MG TABS take one po BID SULFAMETHOXAZOLE-TRIMETHOPRIM 31353299620 No Longer Active Abelardo HERNANDEZ Active AZITHROMYCIN 500 MG TABS 1 PO q day x 6 days AZ ITHROMYCIN 28758536175 No Longer Active Tin HERNANDEZ Active ZITHROMAX 250 MG TAB 2 po today, then 1 po q days 2-5 AZITHROMYCIN 46269751599 No Longer Active Arie Casper MD Acti ve ZITHROMAX 250 MG TAB 2 po today, then 1 po q days 2-5 AZITHROMYCIN 34809009797 No Longer Active Arie Casper MD Acti ve AMOXICILLIN 500 MG CAP 1 tab by mouth 3 times daily 20 09/23/20 AMOXICILLIN 46629110999 No Longer Active Arie Casper MD Acti ve BACTRIM DS 800-160 MG TAB 1 tab by mouth twice daily 2 TRIMETHOPRIM-SULFAMETHOXAZOLE 16624329568 No Longer Active Arie Casper MD Active AMOXICILLIN 500 MG TABS take 1 tab po TID AMOXI CILLIN 24522799768 No Longer Active Arie Casper MD Active BACTRIM DS 800-160 MG TAB 1 tab by mouth twice daily 2 BACTRIM DS 800-160 MG TAB 996747 TRIMETHOPRIM-SULFAMETHOXAZOLE Inac tive MUCINEX 600 MG [id number] Take 1-2 tablets every 12 hours MUCINEX 600 MG [id number]-CAP GUAIFENESIN Inactive ZOFRAN 4 MG TABS 1 tablet every 4 hours ZOFRAN 4 MG TABS 280394 ONDANSETRON HCL Inactive ZOFRAN ODT 4 MG TBDP 1 po q6hr PRN Nausea ZOFRAN ODT 4 MG TBDP 014259 ONDANSETRON Inactive CHLORASEPTIC MAX SORE THROAT 15-10 MG LOZG 1 every 2 hours prn 2 /04/30 CHLORASEPTIC MAX SORE THROAT 15-10 MG LOZG BENZO ARINA-MENTHOL Inactive COMTREX COLD/COUGH DAY/NITE MS 5-2-10-325 MG MISC 2 caps deja ry 4 hours COMTREX COLD/COUGH DAY/NITE MS 5-2-10-325 MG MIS C [id number] Inactive [facility] TUSSIN COUGH/COLD CF 5-10-100 MG/5ML LIQD 2 teaspoons ev eliud 4 hours [facility] TUSSIN COUGH/COLD CF 5-10-100 MG/5ML LIQD [id number] Inactive IBUPROFEN 800 MG TABS take one po Q 8 hours IBUPROFEN 800 MG TABS IBUPROFEN Inactive VITAMINS 0.8 MG TABS take 1 tab po qday 08/08 VITAMINS 0.8 MG TABS [id number] Inactive TESSALON PERLES 100 MG CAP 1 tablet by mouth 3 times daily 11/01 TESSALON PERLES 100 MG CAP 118861 BENZONATATE Inact zaid AMOXICILLIN 500 MG CAP 1 tab by mouth 3 times daily 08/12/16 AMOXICILLIN 500 MG CAP 774668 AMOXICILLIN Inactive GUAIFENESIN-CODEINE 100-10 MG/5ML ORAL SYRP 2 tsp every 6 hours prn GUAIFENESIN-CODEINE 100-10 MG/5ML ORAL SYRP 339859 GUAIFENESIN-CODEINE Inactive VICKS DAYQUIL SEVERE COLD/FLU TABS 1 tab every 6 hours prn 12/10 VICKS DAYQUIL SEVERE COLD/FLU TABS PHENYLEPHRINE -DM-GG-APAP TABS Inactive BACTRIM DS 800-160 MG TABS 1 twice a day BACTRIM DS 800- 160 MG TABS 842666 SULFAMETHOXAZOLE-TRIMETHOPRIM Inactive PROMETHAZINE HCL 25 MG TABS 1 four times a day as needed for vomiting PROMETHAZINE HCL 25 MG TABS 385607 PROMETHAZINE HCL Inactive ZYRTEC ALLERGY 10 MG CAPS 1 po qd ZY RTEC ALLERGY 10 MG CAPS CETIRIZINE HCL Inactive MACROBID 100 MG CAP 1 cap by mouth twice daily MACROBID 100 MG CAP 8644902 NITROFURANTOIN MONOHYD MACRO Inactive LOMOTIL 2.5-0.025 MG TABS 1 to 2 four times a day as needed for diarrhea LOMOTIL 2.5-0.025 MG TABS 3206366 DIPHENOXYLATE-A TROPINE Inactive CYCLOBENZAPRINE HCL 10 MG TABS 1/2 - 1 tablet by mouth three times daily as needed for muscle spasm/pain CYCLOBENZAP RINE HCL 10 MG TABS 808343 CYCLOBENZAPRINE HCL Inactive AMOXICILLIN 500 MG TABS 2 tabs twice a day for 10 days AMOXICILLIN 500 MG TABS 214236 AMOXICILLIN Inactive LOMOTIL 2.5-0.025 MG TAB 1 to 2 four times a day as needed f or diarrhea LOMOTIL 2.5-0.025 MG TAB 0195881 DIPHENOXYLATE-AT ROPINE Inactive ZOFRAN 4 MG ORAL TABS 1 TAB PO Q 6 HRS PRN NAUSEA 2014 ZOFRAN 4 MG ORAL TABS 291666 ONDANSETRON HCL Inactive CITRATE OF MAGNESIA ORAL SOLN 1 bottle today for constipation 20 07/10/15 CITRATE OF MAGNESIA ORAL SOLN 3313502 MAGNESIUM CITRATE Inactive PROMETHAZINE HCL 12.5 MG TABS 1 tablet by mouth every 6 hours as needed for nausea/vomiting PROMETHAZINE HCL 12.5 MG TABS 916912 PROMETHAZINE HCL Inactive PREDNISONE 20 MG TAB 1 tablet twice daily for 2 d ays, then 1 tablet once daily for 2 days PREDNISONE 20 MG TAB 448388 PREDNISONE Inac tive ALPRAZOLAM 0.25 MG TAB 1 tablet by mouth every 8 hours as ne eded for stress ALPRAZOLAM 0.25 MG TAB 376285 ALPRAZOLAM Inact zaid FLONASE 50 MCG/ACT SUSP 1 spray each nostril twice d aily for allergies and runny nose until gone FLONASE 50 MCG/ACT SUSP F LUTICASONE PROPIONATE Inactive PREDNISONE 20 MG TAB 1 tablet daily for airway inflammation 2015 PREDNISONE 20 MG TAB 275484 PREDNISONE Inactive NAPROXEN 500 MG TAB Take 1 tab BID NAPROXEN 500 MG TAB 592244 NAPROXEN Inactive ZOLOFT 50 MG TAB 1 tablet by mouth daily ZOLOFT 50 MG TAB 276627 SERTRALINE HCL Inactive LOMOTIL 2.5-0.025 MG TAB 1 tab po four times a day as needed for diarrhea LOMOTIL 2.5-0.025 MG TAB 5137635 DIPHENOXYLATE-AT ROPINE Inactive AMOXICILLIN 500 MG TABS take 1 tab po TID AMOXICILLIN 500 MG TABS 936740 AMOXICILLIN Inactive AMOXICILLIN 500 MG CAP 1 tab by mouth 3 times daily 09/23/20 AMOXICILLIN 500 MG CAP 246263 AMOXICILLIN Inactive ZITHROMAX 250 MG TAB 2 po today, then 1 po q days 2-5 ZITHROMAX 250 MG TAB 2597280 AZITHROMYCIN Inactive ZITHROMAX 250 MG TAB 2 po today, then 1 po q days 2-5 ZITHROMAX 250 MG TAB 5501007 AZITHROMYCIN Inactive AZITHROMYCIN 500 MG TABS 1 PO q day x 6 days 3 AZITHROMYCIN 500 MG TABS 1120339 AZITHROMYCIN Inactive BACTRIM 400-80 MG TABS take one po BID BA CTRIM 400-80 MG TABS 751114 SULFAMETHOXAZOLE-TRIMETHOPRIM Inactive AZITHROMYCIN 250 MG TABS 2 po qd x 1 day, then 1 po qd x 4 days AZITHROMYCIN 250 MG TABS 2994826 AZITHROMYCIN Inactiv e PREDNISONE 20 MG TAB 2 tabs daily for 3 days, 1 t ab daily for 3 days, 1/2 tab daily for 2 days PREDNISONE 20 MG TAB 397727 PREDNISON E Inactive ZITHROMAX 250 MG TAB 2 po today, then 1 po q days 2-5 ZITHROMAX 250 MG TAB 1268365 AZITHROMYCIN Inactive FLAGYL 500 MG TAB 1 tablet by mouth two times daily 07/11/29 FLAGYL 500 MG TAB 401310 METRONIDAZOLE Inactive AUGMENTIN 875-125 MG TAB 1 tab by mouth twice daily with food 20 08/12/16 AUGMENTIN 875-125 MG TAB 645505 AMOXICILLIN-POT CLAVULA ANGELO Inactive NAPROXEN 500 MG TAB one tab PO BID NAPROXEN 500 MG TAB 111657 NAPROXEN Inactive PREDNISONE 20 MG TAB 2 tabs daily for 3 days, 1 t ab daily for 3 days, 1/2 tab daily for 2 days PREDNISONE 20 MG TAB 617035 PREDNISON E Inactive AZITHROMYCIN 250 MG TABS 2 po qd x 1 day, then 1 po qd x 4 days AZITHROMYCIN 250 MG TABS 5062235 AZITHROMYCIN Inactiv e PREDNISONE 20 MG TAB 2 tabs daily for 3 days, 1 t ab daily for 3 days, 1/2 tab daily for 2 days PREDNISONE 20 MG TAB 422268 PREDNISON E Inactive ZITHROMAX Z-EMIL 250 MG TABS 2 today, then 1 daily for 4 days 201 03/31/18 ZITHROMAX Z-EMIL 250 MG TABS 0073971 AZITHROMYCIN Inac tive CEFDINIR 300 MG CAPS 1 po BID x 10 days C EFDINIR 300 MG CAPS 606275 CEFDINIR Inactive CEFDINIR 300 MG CAPS 1 po BID x 10 days C EFDINIR 300 MG CAPS 944317 CEFDINIR Inactive Advance Directives Directive Description Start [...] Panel - Chemistry sodium, serum 136 mmol/L 263-115 2799/04/26 carbon dioxide, venous blood 29.9 mmol/L 21.0-32 [...] CBC W/DIFF, Comp. Metabolic Panel - Hematology hemoglobin, blood 12.8 g/dL 12.0-16.0 hematocrit, blood 39.0 % 36.0-46.0 mean corpuscular volume, RBC 82 fL 80-97 mean corpuscular hemoglobin, RBC 26.9 pg 27. 0-31.2 mean corpuscular hemoglobin concentration, RBC 32.8 G/DL % 31.8-35.4 red blood cell distribution width 14.1 % 11 .6-14.8 platelet count 284 10^3/MM^3 10*3/mm3 936-285 1117/04/26 erythrocyte (RBC) count 4.76 10^6/MM^3 10*6/mm3 4.04-5.4 8 lymphocytes as percent of blood leukocytes 20.6 % 20.5-51.1 monocytes as percent of blood leukocytes 7.1 % 1.7-9.3 neutrophils as percent of blood leukocytes 67.2 % 42.2-75.2 leukocyte count, blood 15.9 10^3/MM^3 10*3/mm3 4.6-10.2 Lab Report: UADIP W/MICRO, AUTO - Chemis [...] Report: UHCG, UADIP W/MICRO, AUTO - Chemistry RBC, urine, dipstick Trace Negative protein, total urine random Negative mg/dL Negative human chorionic gonadotropin , urine, qualitative (urine test) Negative Negative Lab Report: UHCG, UADIP W/MICRO, AUTO - Urinalysis urine color Yellow Colorless;Lightyellow;St raw;Yellow appearance, urine Clear Clear specific gravity, urine 1.020 1.000-1.030 pH, urine, semiquantitative 6.0 5.0-8.5 glucose, urine, semiquantitative Negative Neg ative ketones, urine, by test strip Negative Negati ve bilirubin, urine Negative Negative urobilinogen, urine, semiquantitative (dipstick) 0.2 Normal leukocyte esterase, urine, by dipstick Negative Negative nitrite, urine, semiquantitative Negative Neg ative Encounters Code Encounter Date Provider Facility CPT-67524 Level 4 Est. Patient 15:29:22 MULTICRAFT OPERATOR Arie mcqueen MD [facility] CPT-17174 Level 3 Est. Patient 15:18:16 MULTICRAFT OPERATOR Jono lback [facility] CPT-85439 Level 4 Est. Patient 12:08:40 MULTICRAFT OPERATOR Steve RESTORATION TECHNICIAN [facility] CPT-90618 Level 3 Est. Patient 09:24:42 CDT Brii [facility]-57571 Level 3 Est. Patient 09:12:56 CDT Arie mcqueen MD [facility]-54097 Level 3 Est. Patient 16:40:54 CDT Jose Zhong MD [facility] CPT-76477 Level 2 Est. Patient 13:01:13 CDT Steve [facility]-49686 Level 3 Est. Patient 11:55:30 MULTICRAFT OPERATOR Jono black [facility] CPT-57228 Level 3 Est. Patient 09:52:36 MULTICRAFT OPERATOR Steve RESTORATION TECHNICIAN [facility] CPT-04279 Level 3 Est. Patient 16:25:33 MULTICRAFT OPERATOR Rich Rosales MD [facility] CPT-81761 Level 3 Est. Patient 20:33:55 CDT Arie mcqueen MD [facility] CPT-79258 Level 3 Est. Patient 14:18:20 CDT Rich Rosales MD [facility] CPT-82987 Level 4 Est. Patient 09:34:31 CDT Arie mcqueen MD [facility] CPT-57903 Level 3 Est. Patient 09:08:55 MULTICRAFT OPERATOR Liliana vincent MD PhD [facility] CPT-61977 Level 3 Est. Patient 16:44:07 MULTICRAFT OPERATOR Arie mcqueen MD [facility] CPT-63276 Level 3 Est. Patient 10:44:27 CDT Arie mcqueen MD [facility] CPT-87393 Level 3 Est. Patient 08:55:41 CDT Jose Zhong MD [facility] CPT-28391 Level 3 Est. Patient 18:37:31 CDT Liliana vincent MD PhD [facility] CPT-75612 Level 3 Est. Patient 14:28:23 CDT Abelardo HERNANDEZ [facility] CPT-45970 Level 3 Est. Patient 15:18:13 MULTICRAFT OPERATOR Arie mcqueen MD [facility] CPT-45379 Level 3 Est. Patient 10:11:29 MULTICRAFT OPERATOR Arie mcqueen MD [facility] CPT-95187 Level 3 Est. Patient 10:55:57 MULTICRAFT OPERATOR Jono black DO [facility] CPT-31182 Level 3 Est. Patient 17:29:05 CDT Arie mcqueen MD [facility] Procedures Code Procedure Name Date Entry Date Standard Desc ription CPT-48001 Sono transvag pelvis non OB uterus ovari es cervix - XRAY USE ONLY 08:58:14 MULTICRAFT OPERATOR CPT-35700 UA w micro - LAB USE ONLY 16:04:56 MULTICRAFT OPERATOR 2015 CPT-43145 Wet Prep/GEN - LAB USE ONLY 16:04:56 MULTICRAFT OPERATOR 20 08/10/29 CPT-27554 First Vx - Ix admin via ID I M or jet injects without counseling by physician 16:57:10 CDT CPT-45074 Fluzone Preservative Free Intramuscular Suspension 16:57:10 CDT CPT-J0696 Rocephin 1000 mg (Ceftriaxone) 11:49:23 CDT CPT-J1040 Depo Medrol 80 mg (Methyl Prednisolone A cetate) 11:49:23 CDT CPT-J1100 Decadron 8mg (Dexamethasone) 11:49:23 CDT 2 CPT-12409 Abx/Therapy Injection 11:49:23 CDT CPT-54598 Abx/Therapy Injection 11:49:23 CDT CPT-08168 Abd compl w upright 09:07:26 MULTICRAFT OPERATOR CPT-35235 Ear Wash 16:12:47 MULTICRAFT OPERATOR CPT-OV Office Visit 11:12:01 CDT CPT-OV Office Visit 15:30:23 CDT CPT-12662 Sono pelvis non OB uterus ovaries cervix 15:50:44 CDT CPT-70488 Hand comp min 3V 16:42:32 CDT CPT-19430 Abd compl w upright 12:17:01 CDT CPT-46278 Nexplanon Placement 15:07:39 MULTICRAFT OPERATOR CPT-90356 Removal of IUD 15:07:39 MULTICRAFT OPERATOR CPT-20318 TB Tubersol 12:09:32 CDT CPT-90313 TB Tubersol 13:55:43 CDT
--- OUTSIDE RECORDS SUMMARY | 2020-03-03 07:40 | XMS REPORT | Clinical Summary ---
Author Author Admin, Diamante Marcelo Organization [facility] Address Unknown Phone Unavailable Allergies, Adverse Reactions, [...] with depression 300.4 Active Brii Ramirez l BREASTER Dysthymic disorder URI 465.9 Active Jono Gagnon DO Acu te upper respiratory infections of unspecified site Vaginal bleeding 623.8 Resolved Jose Zhong MD Other specified noninflammatory disorders of vagina High risk sexual behavior V69.2 Active Arie Casper MD High-risk sexual behavior GERD 530.81 Active Arie Casper MD Esophageal reflux Encounter for surveillance of implantable subdermal contraceptiv e Active Brii Petrona BREASTER Vaginal bleeding 623.8 Active Arie Casper MD Other specified noninflammatory disorders of vagina Influenza like illness 487.1 Active Jose Mcwilliams MD Influenza with other respiratory manifestations Sinusitis 473.9 Active Jessica Heaton BREASTER Unspecified sinusitis (chronic) BREAST CANCER ICD-V16.3 Inactive [...] Liliana cheema MD PhD Fever ICD-780.60 Inactive Lilinaa Estrada MD PhD 08/12/16 Symptom, cough ICD-786.2 [...] 1 tablet daily for 4 days AZITHROMYCIN [id number] No Longer Active Flaco Rosales MD Active GUAIFENESIN DM 400-20 MG ORAL TABLET 1 pill by mouth t wice daily, if needed for cough DEXTROMETHORPHAN-GUAIFENESIN 63739038162 No Longer Active Rich Rosales MD Active TUSSIONEX PENNKINETIC ER 10-8 MG/5ML ORAL SUSPENSION E XTENDED RELEASE 5ml po q12hr PRN Cough HYDROCOD POLST-CHLORPHEN POLST 16530111638 Active iRch Rosales MD Active CEFDINIR 300 MG ORAL CAPSULE 1 po BID x 10 days CEFDINIR 03247886369 No Longer Active Waynellarlen Heaton APRN Active CHERATUSSIN AC 100-10 MG/5ML ORAL SYRUP 1 tsp by mouth every 4 hours as needed for cough GUAIFENESIN-CODEINE 89336703641 No Longe r Active Waynellarlen Heaton BREASTER Active TAMIFLU 75 MG ORAL CAPSULE 1 po BID x 5 days 0 OSELTAMIVIR PHOSPHATE 32321545579 No Longer Active Jose Zhong MD Activ e ZITHROMAX Z-EMIL 250 MG ORAL TABLET 2 today, then 1 daily for 4 d ays AZITHROMYCIN 91856263309 No Longer Active Arie Casper MD Active PROTONIX 40 MG ORAL TABLET DELAYED RELEASE 1 po q a.m. PANTOPRAZOLE SODIUM 37384594195 No Longer Active Arie Casper MD Active BACTRIM DS 800-160 MG ORAL TABLET 1 tab by mouth twice daily 201 05/02/30 TRIMETHOPRIM-SULFAMETHOXAZOLE 47459205874 No Longer Active [facility] Active NEXPLANON IMPLANT right arm subcutaneously ETONOGESTREL IMPL 10157285817 No Longer Active Brii Russ APRN Active TUSSIONEX PENNKINETIC ER 10-8 MG/5ML ORAL SUSPENSION E XTENDED RELEASE 5ml po q12hr PRN Cough HYDROCOD POLST-CHLORPHEN POLST 5 3677456623 No Longer Active Brii Russ APRN Active CETIRIZINE HCL 10 MG ORAL TABLET 1 po qd PRN Allergies CETIRIZINE HCL 67743527699 No Longer Active Brii Russ APRN Activ e PREDNISONE 20 MG ORAL TABLET 2 tabs daily for 3 days, 1 tab daily for 3 days, 1/2 tab daily for 2 days PREDNISONE 99059310430 No Longer Active Arie Casper MD Active LOMOTIL 2.5-0.025 MG ORAL TABLET 1 tab po four times a day as needed for diarrhea DIPHENOXYLATE-ATROPINE 63761464101 No Lo nger Active Arie Casper MD Active ZOLOFT 50 MG ORAL TABLET 1 tablet by mouth daily 12/08 SERTRALINE HCL 44449937100 No Longer Active Arie Casper MD Ac tive NAPROXEN 500 MG ORAL TABLET Take 1 tab BID NAPR OXEN 25123806796 No Longer Active Arie Casper MD Active CEFDINIR 300 MG ORAL CAPSULE 1 po BID x 10 days CEFDINIR 33823983568 No Longer Active Brii Russ APRN Active PREDNISONE 20 MG ORAL TABLET 1 tablet daily for airway inflammat ion PREDNISONE 71310171280 No Longer Active Brii Russ APRN A ctive CEFDINIR 300 MG ORAL CAPSULE 1 po BID x 10 days CEFDINIR 70346582158 No Longer Active Jono Gagnon DO Active FLONASE 50 MCG/ACT NASAL SUSPENSION 1 spray each nostr il twice daily for allergies and runny nose until gone FLUT ICASONE PROPIONATE 15560511197 No Longer Active Jono Gagnon DO Active ALPRAZOLAM 0.25 MG ORAL TABLET 1 tablet by mouth every 8 hours as needed for stress ALPRAZOLAM 43400156588 No Longer Active Jono Gagnon DO Active ZITHROMAX Z-EMIL 250 MG ORAL TABLET 2 today, then 1 daily for 4 d ays AZITHROMYCIN 86706073549 No Longer Active Arie Casper MD Active PREDNISONE 20 MG ORAL TABLET 2 tabs daily for 3 days, 1 tab daily for 3 days, 1/2 tab daily for 2 days PREDNISONE 64433249985 No Longer Active Brii Russ APRN Active PREDNISONE 20 MG ORAL TABLET 1 tablet twice daily for 2 days, then 1 tablet once daily for 2 days PREDNISONE 39734282989 No Longer Active Brii Russ APRN Active PROMETHAZINE HCL 12.5 MG ORAL TABLET 1 tablet by mouth every 6 hours as needed for nausea/vomiting PROMETHAZINE HCL 89409467666 No L onger Active Jono Gagnon DO Active CITRATE OF MAGNESIA ORAL SOLUTION 1 bottle today for constipatio n MAGNESIUM CITRATE 75170403958 No Longer Active Jono Gagnon DO Active ZOFRAN 4 MG ORAL TABLET 1 TAB PO Q 6 HRS PRN NAUSEA 07/10/15 ONDANSETRON HCL 16321183048 No Longer Active Brii Russ APRN Acti ve LOMOTIL 2.5-0.025 MG ORAL TABLET 1 to 2 four times a day as needed for diarrhea DIPHENOXYLATE-ATROPINE 85917235964 No Longer Active January Russ APRN Active AMOXICILLIN 500 MG ORAL TABLET 2 tabs twice a day for 10 days 07/09/11 AMOXICILLIN 67634641633 No Longer Active Brii Russ APRN Active CYCLOBENZAPRINE HCL 10 MG ORAL TABLET 1/2 - 1 tablet b y mouth three times daily as needed for muscle spasm/pain CYCLOBENZAPRINE HCL 30696282857 No Longer Active Arie Casper MD Active LOMOTIL 2.5-0.025 MG ORAL TABLET 1 to 2 four times a day as needed for diarrhea DIPHENOXYLATE-ATROPINE 64501649635 No Longer Active Fozia Casper MD Active MACROBID 100 MG ORAL CAPSULE 1 cap by mouth twice daily NITROFURANTOIN MONOHYD MACRO 31697533116 No Longer Active Arie Casper MD Active ZYRTEC ALLERGY 10 MG ORAL CAPSULE 1 po qd CE TIRIZINE HCL 67026953396 No Longer Active Arie Casper MD Active AZITHROMYCIN 250 MG ORAL TABLET 2 po qd x 1 day, then 1 po q d x 4 days AZITHROMYCIN 57937154318 No Longer Active Jillarlen salgado BREASTER Active PREDNISONE 20 MG ORAL TABLET 2 tabs daily for 3 days, 1 tab daily for 3 days, 1/2 tab daily for 2 days PREDNISONE 40122161738 No Longer Active Jillarlen Heaton BREASTER Active PROMETHAZINE HCL 25 MG ORAL TABLET 1 four times a day as nee ded for vomiting PROMETHAZINE HCL 73596788421 No Longer Active Myrna Roberto MD Active BACTRIM DS 800-160 MG ORAL TABLET 1 twice a day 05/30 SULFAMETHOXAZOLE-TRIMETHOPRIM 96429911575 No Longer Active Myrna Roberto MD Active VICKS DAYQUIL SEVERE COLD/FLU TABLET 1 tab every 6 hours prn 201 02/22/17 [id number] TABS 06682634636 No Longer Active Chris Roberto MD Active GUAIFENESIN-CODEINE 100-10 MG/5ML ORAL SYRUP 2 tsp every 6 hours prn GUAIFENESIN-CODEINE 44970497048 No Longer Active Myrna Roberto MD Active NAPROXEN 500 MG ORAL TABLET one tab PO BID NAPR OXEN 45221199676 No Longer Active Myrna Roberto MD Active AUGMENTIN 875-125 MG ORAL TABLET 1 tab by mouth twice daily with food AMOXICILLIN-POT CLAVULANATE 61103244191 No Longer Act zaid Liliana Estrada MD PhD Active AMOXICILLIN 500 MG ORAL CAPSULE 1 tab by mouth 3 times daily 201 02/21/05 AMOXICILLIN 78060429247 No Longer Active Liliana Estrada MD PhD Active TESSALON PERLES 100 MG ORAL CAPSULE 1 tablet by mouth 3 times da cory BENZONATATE 19079592463 No Longer Active Liliana Estrada MD PhD Active FLAGYL 500 MG ORAL TABLET 1 tablet by mouth two times daily 2014 METRONIDAZOLE 51078676543 No Longer Active Nilam Plattida Ac tive ZITHROMAX 250 MG ORAL TABLET 2 po today, then 1 po q days 2-5 20 06/08/16 AZITHROMYCIN 22156931818 No Longer Active Arie Casper MD Active VITAMINS 0.8 MG ORAL TABLET take 1 tab po qday [id number] 99994411253 No Longer Active Arie Casper MD Active IBUPROFEN 800 MG ORAL TABLET take one po Q 8 hours 201 02/01/16 IBUPROFEN 96485511425 No Longer Active Arie Casper MD Acti ve [facility] TUSSIN COUGH/COLD CF 5-10-100 MG/5ML ORAL LIQUID 2 teasp oons every 4 hours [id number] 04007468172 No Longer Active Blaine Casper MD Active COMTREX COLD/COUGH DAY/NITE MS 5-2-10-325 MG ORAL 2 caps deja ry 4 hours [id number] 64311579970 No Longer Active Da aleksandra Casper MD Active CHLORASEPTIC MAX SORE THROAT 15-10 MG MOUTH/THROAT LOZENGE 1 every 2 hours prn BENZOCAINE-MENTHOL 44711761465 No Longer Active Arie Casper MD Active PREDNISONE 20 MG ORAL TABLET 2 tabs daily for 3 days, 1 tab daily for 3 days, 1/2 tab daily for 2 days PREDNISONE 55124310300 No Longer Active Jose Zhong MD Active AZITHROMYCIN 250 MG ORAL TABLET 2 po qd x 1 day, then 1 po q d x 4 days AZITHROMYCIN 38281108532 No Longer Active Jose Mcwilliams MD Active ZOFRAN ODT 4 MG ORAL TABLET DISINTEGRATING 1 po q6hr PRN Nausea ONDANSETRON 29250259553 No Longer Active Rich Rosales MD Active ZOFRAN 4 MG ORAL TABLET 1 tablet every 4 hours ONDANSETRON HCL 06244529121 No Longer Active Rich Rosales MD Activ e MUCINEX 600 MG ORAL TABLET EXTENDED RELEASE 12 HOUR Ta ke 1-2 tablets every 12 hours GUAIFENESIN 92856808049 No Longer Active Rich Rosales MD Active BACTRIM 400-80 MG ORAL TABLET take one po BID SULFAMETHOXAZOLE-TRIMETHOPRIM 77939601208 No Longer Active Abelardo HERNANDEZ Active AZITHROMYCIN 500 MG ORAL TABLET 1 PO q day x 6 days 20 03/02/23 AZITHROMYCIN 71751454624 No Longer Active Tin HERNANDEZ Activ e ZITHROMAX 250 MG ORAL TABLET 2 po today, then 1 po q days 2-5 20 10/03/08 AZITHROMYCIN 33597783982 No Longer Active Arie Casper MD Active ZITHROMAX 250 MG ORAL TABLET 2 po today, then 1 po q days 2-5 20 09/23/25 AZITHROMYCIN 31442588813 No Longer Active Arie Casper MD Active AMOXICILLIN 500 MG ORAL CAPSULE 1 tab by mouth 3 times daily 201 11/24/09 AMOXICILLIN 50304656855 No Longer Active Arie Casper MD Active BACTRIM DS 800-160 MG ORAL TABLET 1 tab by mouth twice daily 201 11/03/14 TRIMETHOPRIM-SULFAMETHOXAZOLE 85857716956 No Longer Active Fozia Casper MD Active AMOXICILLIN 500 MG ORAL TABLET take 1 tab po TID 08/05 AMOXICILLIN 24661096213 No Longer Active Arie Casper MD Acti ve BACTRIM DS 800-160 MG ORAL TABLET 1 tab by mouth twice daily 201 11/03/14 BACTRIM DS 800-160 MG ORAL TABLET 410901 TRIMETHOPRIM-SULFAMETHOXAZOLE Inactive MUCINEX 600 MG ORAL TABLET EXTENDED RELEASE 12 HOUR Ta ke 1-2 tablets every 12 hours MUCINEX 600 MG ORAL TABLET EXTENDED RELEA SE 12 HOUR GUAIFENESIN Inactive ZOFRAN 4 MG ORAL TABLET 1 tablet every 4 hours ZOFRAN 4 MG ORAL TABLET 442463 ONDANSETRON HCL Inactive ZOFRAN ODT 4 MG ORAL TABLET DISINTEGRATING 1 po q6hr PRN Nausea ZOFRAN ODT 4 MG ORAL TABLET DISINTEGRATING 214976 ONDAN SETRON Inactive CHLORASEPTIC MAX SORE THROAT 15-10 MG MOUTH/THROAT LOZENGE 1 every 2 hours prn CHLORASEPTIC MAX SORE THROAT 15-10 MG MOUTH/THROAT LOZENGE BENZOCAINE-MENTHOL Inactive COMTREX COLD/COUGH DAY/NITE MS 5-2-10-325 MG ORAL 2 caps deja ry 4 hours COMTREX COLD/COUGH DAY/NITE MS 5-2-10-325 MG ORA L [id number] Inactive [facility] TUSSIN COUGH/COLD CF 5-10-100 MG/5ML ORAL LIQUID 2 teasp oons every 4 hours [facility] TUSSIN COUGH/COLD CF 5-10-100 MG/5ML ORAL LI QUID [id number] Inactive IBUPROFEN 800 MG ORAL TABLET take one po Q 8 hours 201 02/01/16 IBUPROFEN 800 MG ORAL TABLET IBUPROFEN Inactive VITAMINS 0.8 MG ORAL TABLET take 1 tab po qday VITAMINS 0.8 MG ORAL TABLET [id number]-FA Inactive TESSALON PERLES 100 MG ORAL CAPSULE 1 tablet by mouth 3 times da cory TESSALON PERLES 100 MG ORAL CAPSULE 763852 BENZONATATE Inactive AMOXICILLIN 500 MG ORAL CAPSULE 1 tab by mouth 3 times daily 201 02/21/05 AMOXICILLIN 500 MG ORAL CAPSULE 346359 AMOXICILLIN Inactive GUAIFENESIN-CODEINE 100-10 MG/5ML ORAL SYRUP 2 tsp every 6 hours prn GUAIFENESIN-CODEINE 100-10 MG/5ML ORAL SYRUP 858663 GUAIFENESIN-CODEINE Inactive VICKS DAYQUIL SEVERE COLD/FLU TABLET 1 tab every 6 hours prn 201 02/22/17 VICKS DAYQUIL SEVERE COLD/FLU TABLET PHENYLEPHRI [id number] TABS Inactive BACTRIM DS 800-160 MG ORAL TABLET 1 twice a day 05/30 BACTRIM DS 800-160 MG ORAL TABLET 816312 SULFAMETHOXAZOLE-TRIMETHOPRIM Inactiv e PROMETHAZINE HCL 25 MG ORAL TABLET 1 four times a day as nee ded for vomiting PROMETHAZINE HCL 25 MG ORAL TABLET 722018 PROMETHAZINE HCL Inactive ZYRTEC ALLERGY 10 MG ORAL CAPSULE 1 po qd ZYRTEC ALLERGY 10 MG ORAL CAPSULE CETIRIZINE HCL Inactive MACROBID 100 MG ORAL CAPSULE 1 cap by mouth twice daily MACROBID 100 MG ORAL CAPSULE 3114105 NITROFURANTOIN MONOHYD MACRO In active LOMOTIL 2.5-0.025 MG ORAL TABLET 1 to 2 four times a day as needed for diarrhea LOMOTIL 2.5-0.025 MG ORAL TABLET 5831800 DIPHENOXYLATE-ATROPINE Inactive CYCLOBENZAPRINE HCL 10 MG ORAL TABLET 1/2 - 1 tablet b y mouth three times daily as needed for muscle spasm/pain CYCLOBEN ZAPRINE HCL 10 MG ORAL TABLET 390729 CYCLOBENZAPRINE HCL Inactive AMOXICILLIN 500 MG ORAL TABLET 2 tabs twice a day for 10 days 20 07/09/11 AMOXICILLIN 500 MG ORAL TABLET 403693 AMOXICILLIN I nactive LOMOTIL 2.5-0.025 MG ORAL TABLET 1 to 2 four times a day as needed for diarrhea LOMOTIL 2.5-0.025 MG ORAL TABLET 4195098 DIPHENOXYLATE-ATROPINE Inactive ZOFRAN 4 MG ORAL TABLET 1 TAB PO Q 6 HRS PRN NAUSEA 07/10/15 ZOFRAN 4 MG ORAL TABLET 676515 ONDANSETRON HCL Inactive CITRATE OF MAGNESIA ORAL SOLUTION 1 bottle today for constipatio n CITRATE OF MAGNESIA ORAL SOLUTION 0669020 MAGNESIUM CITR ATE Inactive PROMETHAZINE HCL 12.5 MG ORAL TABLET 1 tablet by mouth every 6 hours as needed for nausea/vomiting PROMETHAZINE HCL 12.5 MG ORA L TABLET 474407 PROMETHAZINE HCL Inactive PREDNISONE 20 MG ORAL TABLET 1 tablet twice daily for 2 days, then 1 tablet once daily for 2 days PREDNISONE 20 MG ORAL TABLET 829733 PREDNISONE Inactive ALPRAZOLAM 0.25 MG ORAL TABLET 1 tablet by mouth every 8 hours as needed for stress ALPRAZOLAM 0.25 MG ORAL TABLET 846349 ALPRA ZOLAM Inactive FLONASE 50 MCG/ACT NASAL SUSPENSION 1 spray each nostr il twice daily for allergies and runny nose until gone FLON ASE 50 MCG/ACT NASAL SUSPENSION 9477442 FLUTICASONE PROPIONATE Inactive PREDNISONE 20 MG ORAL TABLET 1 tablet daily for airway inflammat ion PREDNISONE 20 MG ORAL TABLET 660200 PREDNISONE [place] ctive NAPROXEN 500 MG ORAL TABLET Take 1 tab BID NAPROXEN 500 MG ORAL TABLET 833561 NAPROXEN Inactive ZOLOFT 50 MG ORAL TABLET 1 tablet by mouth daily 12/08 ZOLOFT 50 MG ORAL TABLET 487230 SERTRALINE HCL Inactive LOMOTIL 2.5-0.025 MG ORAL TABLET 1 tab po four times a day as needed for diarrhea LOMOTIL 2.5-0.025 MG ORAL TABLET 1245015 DIPHENOXYLATE-ATROPINE Inactive CETIRIZINE HCL 10 MG ORAL TABLET 1 po qd PRN Allergies CETIRIZINE HCL 10 MG ORAL TABLET 3689668 CETIRIZINE HCL Inactiv e TUSSIONEX PENNKINETIC ER 10-8 MG/5ML ORAL SUSPENSION E XTENDED RELEASE 5ml po q12hr PRN Cough TUSSIONEX PENNKINETI C ER 10-8 MG/5ML ORAL SUSPENSION EXTENDED RELEASE HYDROCOD POLST-CHLORPHEN POLST I nactive NEXPLANON IMPLANT right arm subcutaneously NEXPLANON IMPLANT ETONOGESTREL IMPL Inactive PROTONIX 40 MG ORAL TABLET DELAYED RELEASE 1 po q a.m. PROTONIX 40 MG ORAL TABLET DELAYED RELEASE 120525 PANTOPRAZOLE SODI UM Inactive CHERATUSSIN AC 100-10 MG/5ML ORAL SYRUP 1 tsp by mouth every 4 hours as needed for cough CHERATUSSIN AC 100-10 MG/5ML ORAL SYRUP 9 82096 GUAIFENESIN-CODEINE Inactive GUAIFENESIN DM 400-20 MG ORAL TABLET 1 pill by mouth t wice daily, if needed for cough GUAIFENESIN DM 400-20 MG ORAL TABLET 1147 685 DEXTROMETHORPHAN-GUAIFENESIN Inactive AMOXICILLIN 500 MG ORAL TABLET take 1 tab po TID 08/05 AMOXICILLIN 500 MG ORAL TABLET 185877 AMOXICILLIN Inactive AMOXICILLIN 500 MG ORAL CAPSULE 1 tab by mouth 3 times daily 201 11/24/09 AMOXICILLIN 500 MG ORAL CAPSULE 996188 AMOXICILLIN Inactive ZITHROMAX 250 MG ORAL TABLET 2 po today, then 1 po q days 2-5 20 09/23/25 ZITHROMAX 250 MG ORAL TABLET 956568 AZITHROMYCIN [place] ctive ZITHROMAX 250 MG ORAL TABLET 2 po today, then 1 po q days 2-5 20 10/03/08 ZITHROMAX 250 MG ORAL TABLET 341364 AZITHROMYCIN [place] ctive AZITHROMYCIN 500 MG ORAL TABLET 1 PO q day x 6 days 20 03/02/23 AZITHROMYCIN 500 MG ORAL TABLET 2107476 AZITHROMYCIN Inactive BACTRIM 400-80 MG ORAL TABLET take one po BID BACTRIM 400- 80 MG ORAL TABLET 264673 SULFAMETHOXAZOLE-TRIMETHOPRIM Inactive AZITHROMYCIN 250 MG ORAL TABLET 2 po qd x 1 day, then 1 po q d x 4 days AZITHROMYCIN 250 MG ORAL TABLET 524564 AZITHROMY ALLISON Inactive PREDNISONE 20 MG ORAL TABLET 2 tabs daily for 3 days, 1 tab daily for 3 days, 1/2 tab daily for 2 days PREDNISONE 20 MG ORAL T ABLET 819108 PREDNISONE Inactive ZITHROMAX 250 MG ORAL TABLET 2 po today, then 1 po q days 2-5 20 06/08/16 ZITHROMAX 250 MG ORAL TABLET 379404 AZITHROMYCIN [place] ctive FLAGYL 500 MG ORAL TABLET 1 tablet by mouth two times daily 2014 FLAGYL 500 MG ORAL TABLET 975194 METRONIDAZOLE Inacti ve AUGMENTIN 875-125 MG ORAL TABLET 1 tab by mouth twice daily with food AUGMENTIN 875-125 MG ORAL TABLET 135549 AMOXICIL ELSA-POT CLAVULANATE Inactive NAPROXEN 500 MG ORAL TABLET one tab PO BID NAPROXEN 500 MG ORAL TABLET 825482 NAPROXEN Inactive PREDNISONE 20 MG ORAL TABLET 2 tabs daily for 3 days, 1 tab daily for 3 days, 1/2 tab daily for 2 days PREDNISONE 20 MG ORAL T ABLET 959073 PREDNISONE Inactive AZITHROMYCIN 250 MG ORAL TABLET 2 po qd x 1 day, then 1 po q d x 4 days AZITHROMYCIN 250 MG ORAL TABLET 878064 AZITHROMY ALLISON Inactive PREDNISONE 20 MG ORAL TABLET 2 tabs daily for 3 days, 1 tab daily for 3 days, 1/2 tab daily for 2 days PREDNISONE 20 MG ORAL T ABLET 441481 PREDNISONE Inactive ZITHROMAX Z-EMIL 250 MG ORAL TABLET 2 today, then 1 daily for 4 d ays ZITHROMAX Z-EMIL 250 MG ORAL TABLET 121296 AZITHROMYCIN Inactive CEFDINIR 300 MG ORAL CAPSULE [...] days PREDNISONE 20 MG ORAL T ABLET 079053 PREDNISONE Inactive BACTRIM DS 800-160 MG ORAL TABLET 1 tab by mouth twice daily 201 05/02/30 BACTRIM DS 800-160 MG ORAL TABLET 911628 TRIMETHOPRIM-SULFAMETHOXAZOLE Inactive ZITHROMAX Z-EMIL 250 MG ORAL TABLET 2 today, then 1 daily for 4 d ays ZITHROMAX Z-EMIL 250 MG ORAL TABLET 831930 AZITHROMYCIN Inactive TAMIFLU 75 MG ORAL CAPSULE 1 po BID x 5 days 0 TAMIFLU 75 MG ORAL CAPSULE 503175 OSELTAMIVIR PHOSPHATE Inactive CEFDINIR 300 MG ORAL CAPSULE 1 po BID x 10 days 01/03 CEFDINIR 300 MG ORAL CAPSULE 20030127 CEFDINIR Inactive ZITHROMAX Z-EMIL 250 MG TABS Take two tablets today and then 1 tablet daily for 4 days ZITHROMAX Z-EMIL 250 MG TABS 859717 AZITHROM YCIN Inactive Advance Directives Directive Description [...] 5.0-8.5 Encounters Code Encounter Date Provider Facility CPT-45464 Level 3 Est. Patient 11:49:34 BUSINESS DEVELOPMENT PROFESSIONAL Jessica boyd [facility] CPT-91106 Level 3 Est. Patient 14:55:50 BUSINESS DEVELOPMENT PROFESSIONAL Jose Zhong MD [facility] CPT-86938 Level 3 Est. Patient 10:21:41 BUSINESS DEVELOPMENT PROFESSIONAL Arie mcqueen MD [facility] CPT-87746 Level 3 Est. Patient 11:35:15 BUSINESS DEVELOPMENT PROFESSIONAL Arie mcqueen MD [facility]-10999 Level 3 Est. Patient 15:40:28 CDT [facility] CPT-05850 Level 3 Est. Patient 16:40:36 CDT Arie mcqueen MD [facility] CPT-87216 Level 4 Est. Patient 15:29:22 BUSINESS DEVELOPMENT PROFESSIONAL Arie mcqueen MD [facility] CPT-28561 Level 3 Est. Patient 15:18:16 BUSINESS DEVELOPMENT PROFESSIONAL Jono black [facility] CPT-33846 Level 4 Est. Patient 12:08:40 BUSINESS DEVELOPMENT PROFESSIONAL [facility] CPT-46822 Level 3 Est. Patient 09:24:42 CDT [facility] CPT-86098 Level 3 Est. Patient 09:12:56 CDT Arie mcqueen MD [facility] CPT-71521 Level 3 Est. Patient 16:40:54 CDT Jose Zhong MD [facility]-23623 Level 2 Est. Patient 13:01:13 CDT [facility] CPT-97023 Level 3 Est. Patient 11:55:30 BUSINESS DEVELOPMENT PROFESSIONAL Jono black [facility] CPT-88139 Level 3 Est. Patient 09:52:36 BUSINESS DEVELOPMENT PROFESSIONAL Brii escalante BREASTER [facility] CPT-46261 Level 3 Est. Patient 16:25:33 BUSINESS DEVELOPMENT PROFESSIONAL Rich Rosales MD [facility]-45788 Level 3 Est. Patient 20:33:55 CDT Arie mcqueen MD [facility]-54588 Level 3 Est. Patient 14:18:20 CDT Rich Rosales MD [facility]-28779 Level 4 Est. Patient 09:34:31 CDT Arie mcqueen MD [facility]-54852 Level 3 Est. Patient 09:08:55 BUSINESS DEVELOPMENT PROFESSIONAL Liliana vincent MD [facility]-71337 Level 3 Est. Patient 16:44:07 BUSINESS DEVELOPMENT PROFESSIONAL Arie mcqueen MD [facility]-83386 Level 3 Est. Patient 10:44:27 CDT Arie mcqueen MD [facility] CPT-85098 Level 3 Est. Patient 08:55:41 CDT Jose Zhong MD [facility]-27756 Level 3 Est. Patient 18:37:31 CDT Liliana vincent MD [facility]-68970 Level 3 Est. Patient 14:28:23 CDT Abelardo HERNANDEZ [facility]-31921 Level 3 Est. Patient 15:18:13 BUSINESS DEVELOPMENT PROFESSIONAL Arie mcqueen MD [facility]-03128 Level 3 Est. Patient 10:11:29 BUSINESS DEVELOPMENT PROFESSIONAL Arie mcqueen MD [facility]-07061 Level 3 Est. Patient 10:55:57 BUSINESS DEVELOPMENT PROFESSIONAL Jono black DO [facility] CPT-42530 Level 3 Est. Patient 17:29:05 CDT Arie mcqueen MD [facility] Procedures Code Procedure Name Date Entry Date Standard Desc ription CPT-20003 Nexplanon Removal 15:40:28 CDT CPT-57114 Sono transvag pelvis non OB uterus ovari es cervix - XRAY USE ONLY 08:58:14 BUSINESS DEVELOPMENT PROFESSIONAL CPT-37571 UA w micro - LAB USE ONLY 16:04:56 BUSINESS DEVELOPMENT PROFESSIONAL 2015 CPT-73284 Wet Prep/GEN - LAB USE ONLY 16:04:56 BUSINESS DEVELOPMENT PROFESSIONAL 20 08/10/29 CPT-33913 First Vx - Ix admin via ID I M or jet injects without counseling by physician 16:57:10 CDT CPT-42417 Fluzone Preservative Free Intramuscular Suspension 16:57:10 CDT CPT-J0696 Rocephin 1000 mg (Ceftriaxone) 11:49:23 CDT CPT-J1040 Depo Medrol 80 mg (Methyl Prednisolone A cetate) 11:49:23 CDT CPT-J1100 Decadron 8mg (Dexamethasone) 11:49:23 CDT 2 CPT-93046 Abx/Therapy Injection 11:49:23 CDT CPT-26630 Abx/Therapy Injection 11:49:23 CDT CPT-44103 Abd compl w upright 09:07:26 BUSINESS DEVELOPMENT PROFESSIONAL CPT-24341 Ear Wash 16:12:47 BUSINESS DEVELOPMENT PROFESSIONAL CPT-OV Office Visit 11:12:01 CDT CPT-OV Office Visit 15:30:23 CDT CPT-01285 Sono pelvis non OB uterus ovaries cervix 15:50:44 CDT CPT-89042 Hand comp min 3V 16:42:32 CDT CPT-47799 Abd compl w upright 12:17:01 CDT CPT-52051 Nexplanon Placement 15:07:39 BUSINESS DEVELOPMENT PROFESSIONAL CPT-86115 Removal of IUD 15:07:39 BUSINESS DEVELOPMENT PROFESSIONAL CPT-83958 TB Tubersol 12:09:32 CDT CPT-72281 TB Tubersol 13:55:43 CDT
--- OUTSIDE RECORDS SUMMARY | 2020-03-03 07:41 | XMS REPORT | Clinical Summary ---
Author Author Admin, Diamante Marcelo Organization [facility] Address Unknown Phone Unavailable Allergies, [...] Estrada MD PhD Abdominal pain ICD-789.00 Inactive oJse monreal MD Diarrhea ICD-787.91 Inactive Jose Marcelo [...] a day as needed for diarrhea DIPHENOXYLATE-ATROPINE 11916307711 Active Rich mcintosh MD Active PROMETHAZINE HCL 25 MG TABS 1 four times a day as needed for vomiting PROMETHAZINE HCL 67536665741 Active Rich Rosales MD Active BACTRIM DS 800-160 MG TABS 1 twice a day SULFAMETHOXAZOLE-TRIMETHOPRIM 85889771373 Active Rich Rosales MD Active AUGMENTIN 875-125 MG TAB 1 tab by mouth twice daily with food 08/12/16 AMOXICILLIN-POT CLAVULANATE 72557073915 No Longer Active Liliana Estrada MD PhD Active CYCLOBENZAPRINE HCL 10 MG TABS 1/2 - 1 tablet by mouth three times daily as needed for muscle spasm/pain CYCLOBENZAPRINE HCL 49236 741198 Active Liliana Estrada MD PhD Active GUAIFENESIN-CODEINE 100-10 MG/5ML ORAL SYRP 2 tsp every 6 hours prn GUAIFENESIN-CODEINE 02831980157 Active Liliana Estrada MD PhD Active VICKS DAYQUIL SEVERE COLD/FLU TABS 1 tab every 6 hours prn [id number] TABS 87410874723 Active Liliana Estrada MD PhD Active AMOXICILLIN 500 MG CAP 1 tab by mouth 3 times daily 08/12/16 AMOXICILLIN 07275001497 No Longer Active Liliana Estrada MD PhD Acti ve TESSALON PERLES 100 MG CAP 1 tablet by mouth 3 times daily 11/01 BENZONATATE 66494679424 No Longer Active Liliana Estrada MD PhD Active FLAGYL 500 MG TAB 1 tablet by mouth two times daily 07/11/29 METRONIDAZOLE 30738427053 No Longer Active Nilam Weber Active ZITHROMAX 250 MG TAB 2 po today, then 1 po q days 2-5 AZITHROMYCIN 39875444918 No Longer Active Arie Casper MD Acti ve VITAMINS 0.8 MG TABS take 1 tab po qday 08/08 [id number] 42842950321 No Longer Active Arie Casper MD Active IBUPROFEN 800 MG TABS take one po Q 8 hours IBU PROFEN 06898910276 No Longer Active Arie Casper MD Active [facility] TUSSIN COUGH/COLD CF 5-10-100 MG/5ML LIQD 2 teaspoons ev eliud 4 hours [id number] 94634721094 No Longer Active Blaine Casper MD Active COMTREX COLD/COUGH DAY/NITE MS 5-2-10-325 MG MISC 2 caps deja ry 4 hours [id number] 28597500456 No Longer Active Landon Casper MD Active CHLORASEPTIC MAX SORE THROAT 15-10 MG LOZG 1 every 2 hours prn 2 BENZOCAINE-MENTHOL 86071093847 No Longer Active Arie Marcelo Active PREDNISONE 20 MG TAB 2 tabs daily for 3 days, 1 t ab daily for 3 days, 1/2 tab daily for 2 days PREDNISONE 88450036534 No Longer Active Jose Zhong MD Active AZITHROMYCIN 250 MG TABS 2 po qd x 1 day, then 1 po qd x 4 days AZITHROMYCIN 98128016197 No Longer Active Jose Zhong MD Active ZOFRAN ODT 4 MG TBDP 1 po q6hr PRN Nausea ONDAN SETRON 70332462885 No Longer Active Rich Rosales MD Active ZOFRAN 4 MG TABS 1 tablet every 4 hours ONDANSE JERRELL HCL 06949958267 No Longer Active Rich Rosales MD Active MUCINEX 600 MG [id number] Take 1-2 tablets every 12 hours GUAIFENESIN 68052044388 No Longer Active Rich Rosales MD Activ e BACTRIM 400-80 MG TABS take one po BID SULFAMETHOXAZOLE-TRIMETHOPRIM 52353559552 No Longer Active Abelardo HERNANDEZ Active AZITHROMYCIN 500 MG TABS 1 PO q day x 6 days AZ ITHROMYCIN 59755035286 No Longer Active Tin HERNANDEZ Active ZITHROMAX 250 MG TAB 2 po today, then 1 po q days 2-5 AZITHROMYCIN 26067418235 No Longer Active Arie Casper MD Acti ve ZITHROMAX 250 MG TAB 2 po today, then 1 po q days 2-5 AZITHROMYCIN 45833049083 No Longer Active Arie Casper MD Acti ve AMOXICILLIN 500 MG CAP 1 tab by mouth 3 times daily 09/23/20 AMOXICILLIN 32945190703 No Longer Active Arie Casper MD Acti ve BACTRIM DS 800-160 MG TAB 1 tab by mouth twice daily 2 TRIMETHOPRIM-SULFAMETHOXAZOLE 77858882696 No Longer Active Arie Casper MD Active AMOXICILLIN 500 MG TABS take 1 tab po TID AMOXI CILLIN 40859271380 No Longer Active Arie Casper MD Active BACTRIM DS 800-160 MG TAB 1 tab by mouth twice daily 2 BACTRIM DS 800-160 MG TAB TRIMETHOPRIM-SULFAMETHOXAZOLE Inac tive MUCINEX 600 MG [id number] Take 1-2 tablets every 12 hours MUCINEX 600 MG [id number] GUAIFENESIN Inactive ZOFRAN 4 MG TABS 1 tablet every 4 hours ZOFRAN 4 MG TABS 061315 ONDANSETRON HCL Inactive ZOFRAN ODT 4 MG TBDP 1 po q6hr PRN Nausea ZOFRAN ODT 4 MG TBDP 294222 ONDANSETRON Inactive CHLORASEPTIC MAX SORE THROAT 15-10 MG LOZG 1 every 2 hours prn 2 014/04/30 CHLORASEPTIC MAX SORE THROAT 15-10 MG LOZG BENZO ARINA-MENTHOL Inactive COMTREX COLD/COUGH DAY/NITE MS 5-2-10-325 MG MISC 2 caps deja ry 4 hours COMTREX COLD/COUGH DAY/NITE MS 5-2-10-325 MG MIS C [id number] Inactive [facility] TUSSIN COUGH/COLD CF 5-10-100 MG/5ML LIQD 2 teaspoons ev eliud 4 hours [facility] TUSSIN COUGH/COLD CF 5-10-100 MG/5ML LIQD [id number] Inactive IBUPROFEN 800 MG TABS take one po Q 8 hours IBUPROFEN 800 MG TABS IBUPROFEN Inactive VITAMINS 0.8 MG TABS take 1 tab po qday 08/08 VITAMINS 0.8 MG TABS [id number] Inactive TESSALON PERLES 100 MG CAP 1 tablet by mouth 3 times daily 11/01 TESSALON PERLES 100 MG CAP 561992 BENZONATATE Inact zaid AMOXICILLIN 500 MG CAP 1 tab by mouth 3 times daily 08/12/16 AMOXICILLIN 500 MG CAP 929833 AMOXICILLIN Inactive AMOXICILLIN 500 MG TABS take 1 tab po TID AMOXICILLIN 500 MG TABS 606495 AMOXICILLIN Inactive AMOXICILLIN 500 MG CAP 1 tab by mouth 3 times daily 09/23/20 AMOXICILLIN 500 MG CAP 906101 AMOXICILLIN Inactive ZITHROMAX 250 MG TAB 2 po today, then 1 po q days 2-5 ZITHROMAX 250 MG TAB 2398468 AZITHROMYCIN Inactive ZITHROMAX 250 MG TAB 2 po today, then 1 po q days 2-5 ZITHROMAX 250 MG TAB 3129346 AZITHROMYCIN Inactive AZITHROMYCIN 500 MG TABS 1 PO q day x 6 days 3 AZITHROMYCIN 500 MG TABS 5091899 AZITHROMYCIN Inactive BACTRIM 400-80 MG TABS take one po BID BA CTRIM 400-80 MG TABS 718048 SULFAMETHOXAZOLE-TRIMETHOPRIM Inactive AZITHROMYCIN 250 MG TABS 2 po qd x 1 day, then 1 po qd x 4 days AZITHROMYCIN 250 MG TABS 5320491 AZITHROMYCIN Inactiv e PREDNISONE 20 MG TAB 2 tabs daily for 3 days, 1 t ab daily for 3 days, 1/2 tab daily for 2 days PREDNISONE 20 MG TAB 226598 PREDNISON E Inactive ZITHROMAX 250 MG TAB 2 po today, then 1 po q days 2-5 ZITHROMAX 250 MG TAB 4473043 AZITHROMYCIN Inactive FLAGYL 500 MG TAB 1 tablet by mouth two times daily 07/11/29 FLAGYL 500 MG TAB 057278 METRONIDAZOLE Inactive AUGMENTIN 875-125 MG TAB 1 tab by mouth twice daily with food 08/12/16 AUGMENTIN 875-125 MG TAB 613743 AMOXICILLIN-POT CLAVULA ANGELO Inactive Advance Directives Directive [...] Negative;Positive Encounters Code Encounter Date Provider Facility CPT-52866 Level 3 Est. Patient 14:18:20 CDT Rich Rosales MD [facility] CPT-57208 Level 4 Est. Patient 09:34:31 CDT Arie mcqueen MD [facility] [place] CPT-54554 Level 3 Est. Patient 09:08:55 DEVELOPMENT TECHNOLOGIST Liliana vincent MD PhD [facility] [place] CPT-31433 Level 3 Est. Patient 16:44:07 DEVELOPMENT TECHNOLOGIST Arie mcqueen MD [facility] CPT-03888 Level 3 Est. Patient 10:44:27 CDT Arie mcqueen MD [facility] CPT-49899 Level 3 Est. Patient 08:55:41 CDT Jose Zhong MD [facility] CPT-21304 Level 3 Est. Patient 18:37:31 CDT Liliana vincent MD PhD [facility] CPT-99998 Level 3 Est. Patient 14:28:23 CDT Abelardo HERNANDEZ [facility] CPT-89891 Level 3 Est. Patient 15:18:13 DEVELOPMENT TECHNOLOGIST Arie mcqueen MD [facility] CPT-32320 Level 3 Est. Patient 10:11:29 DEVELOPMENT TECHNOLOGIST Arie mcqueen MD [facility] CPT-27455 Level 3 Est. Patient 10:55:57 DEVELOPMENT TECHNOLOGIST Jono black DO [facility] CPT-88060 Level 3 Est. Patient 17:29:05 CDT Arie mcqueen MD [facility] Procedures Code Procedure Name Date Entry Date Standard Desc ription CPT-32893 Sono pelvis non OB uterus ovaries cervix 15:50:44 CDT CPT-57843 Hand comp min 3V 16:42:32 CDT CPT-38974 Abd compl w upright 12:17:01 CDT CPT-42747 Nexplanon Placement 15:07:39 DEVELOPMENT TECHNOLOGIST CPT-56865 Removal of IUD 15:07:39 DEVELOPMENT TECHNOLOGIST CPT-94862 TB Tubersol 12:09:32 CDT CPT-56207 TB Tubersol 13:55:43 CDT
--- OUTSIDE RECORDS SUMMARY | 2020-03-03 07:41 | XMS REPORT | Clinical Summary ---
Author Author Admin, Diamante Marcelo Organization [employer] Address Unknown Phone Unavailable Allergies, Adverse Reactions, [...] implantable subdermal contraceptiv e Active Brii Russ ACCOUNTING LECTURER Vaginal bleeding 623.8 Active Arie Casper MD Other specified noninflammatory disorders of vagina Influenza like illness 487.1 Active Jose Mcwilliams MD Influenza with other respiratory manifestations Sinusitis 473.9 Active Jessica Heaton ACCOUNTING LECTURER Unspecified sinusitis (chronic) BREAST CANCER ICD-V16.3 Inactive [...] q12hr PRN Cough HYDROCOD POLST-CHLORPHEN POLST 5 [id number] No Longer Active Myrna Roberto MD Active ZITHROMAX Z-EMIL 250 MG TABS Take two tablets today and then 1 tablet daily for 4 days AZITHROMYCIN 69691267251 No Longer Active Flaco Rosales MD Active GUAIFENESIN DM 400-20 MG ORAL TABLET 1 pill by mouth t wice daily, if needed for cough DEXTROMETHORPHAN-GUAIFENESIN 88179576211 No Longer Active Rich Rosales MD Active CEFDINIR 300 MG ORAL CAPSULE 1 po BID x 10 days CEFDINIR 25905429110 No Longer Active Jessica Heaton APRN Active CHERATUSSIN AC 100-10 MG/5ML ORAL SYRUP 1 tsp by mouth every 4 hours as needed for cough GUAIFENESIN-CODEINE 43339985097 No Longe r Active Jessica Heaton APRN Active TAMIFLU 75 MG ORAL CAPSULE 1 po BID x 5 days 0 OSELTAMIVIR PHOSPHATE 95382877317 No Longer Active Jose Zhong MD Activ e ZITHROMAX Z-EMIL 250 MG ORAL TABLET 2 today, then 1 daily for 4 d ays AZITHROMYCIN 84896294677 No Longer Active Arie Casper MD Active PROTONIX 40 MG ORAL TABLET DELAYED RELEASE 1 po q a.m. PANTOPRAZOLE SODIUM 71068663657 No Longer Active Arie Casper MD Active BACTRIM DS 800-160 MG ORAL TABLET 1 tab by mouth twice daily 201 05/02/30 TRIMETHOPRIM-SULFAMETHOXAZOLE 02440553807 No Longer Active R [facility] Ty Active NEXPLANON IMPLANT right arm subcutaneously ETONOGESTREL IMPL 53681623512 No Longer Active Brii Russ APRN Active TUSSIONEX PENNKINETIC ER 10-8 MG/5ML ORAL SUSPENSION E XTENDED RELEASE 5ml po q12hr PRN Cough HYDROCOD POLST-CHLORPHEN POLST 5 4400887147 No Longer Active Brii Russ ACCOUNTING LECTURER Active CETIRIZINE HCL 10 MG ORAL TABLET 1 po qd PRN Allergies CETIRIZINE HCL 36694433624 No Longer Active Brii Russ APRN Activ e PREDNISONE 20 MG ORAL TABLET 2 tabs daily for 3 days, 1 tab daily for 3 days, 1/2 tab daily for 2 days PREDNISONE 47477777642 No Longer Active Arie Casper MD Active LOMOTIL 2.5-0.025 MG ORAL TABLET 1 tab po four times a day as needed for diarrhea DIPHENOXYLATE-ATROPINE 32740213016 No Lo nger Active Arie Casper MD Active ZOLOFT 50 MG ORAL TABLET 1 tablet by mouth daily 12/08 SERTRALINE HCL 70739100432 No Longer Active Arie Casper MD Ac tive NAPROXEN 500 MG ORAL TABLET Take 1 tab BID NAPR OXEN 75838955904 No Longer Active Arie Casper MD Active CEFDINIR 300 MG ORAL CAPSULE 1 po BID x 10 days CEFDINIR 90841634147 No Longer Active Brii Russ APRN Active PREDNISONE 20 MG ORAL TABLET 1 tablet daily for airway inflammat ion PREDNISONE 59817118661 No Longer Active Brii Russ APRN A ctive CEFDINIR 300 MG ORAL CAPSULE 1 po BID x 10 days CEFDINIR 79020337703 No Longer Active Jono Gagnon DO Active FLONASE 50 MCG/ACT NASAL SUSPENSION 1 spray each nostr il twice daily for allergies and runny nose until gone FLUT ICASONE PROPIONATE 39201100970 No Longer Active Jono Gagnon DO Active ALPRAZOLAM 0.25 MG ORAL TABLET 1 tablet by mouth every 8 hours as needed for stress ALPRAZOLAM 82384116519 No Longer Active Jono Gagnon DO Active ZITHROMAX Z-EMIL 250 MG ORAL TABLET 2 today, then 1 daily for 4 d ays AZITHROMYCIN 46361962273 No Longer Active Arie Casper MD Active PREDNISONE 20 MG ORAL TABLET 2 tabs daily for 3 days, 1 tab daily for 3 days, 1/2 tab daily for 2 days PREDNISONE 37279037103 No Longer Active Brii Russ APRN Active PREDNISONE 20 MG ORAL TABLET 1 tablet twice daily for 2 days, then 1 tablet once daily for 2 days PREDNISONE 43396330139 No Longer Active Brii Russ APRN Active PROMETHAZINE HCL 12.5 MG ORAL TABLET 1 tablet by mouth every 6 hours as needed for nausea/vomiting PROMETHAZINE HCL 52876775690 No L onger Active Jono Gagnon DO Active CITRATE OF MAGNESIA ORAL SOLUTION 1 bottle today for constipatio n MAGNESIUM CITRATE 25614856376 No Longer Active Jono Gagnon DO Active ZOFRAN 4 MG ORAL TABLET 1 TAB PO Q 6 HRS PRN NAUSEA 07/10/15 ONDANSETRON HCL 05001037343 No Longer Active Brii Russ APRN Acti ve LOMOTIL 2.5-0.025 MG ORAL TABLET 1 to 2 four times a day as needed for diarrhea DIPHENOXYLATE-ATROPINE 05363228586 No Longer Active January Russ APRN Active AMOXICILLIN 500 MG ORAL TABLET 2 tabs twice a day for 10 days 20 07/09/11 AMOXICILLIN 00415329922 No Longer Active Brii Russ APRN Active CYCLOBENZAPRINE HCL 10 MG ORAL TABLET 1/2 - 1 tablet b y mouth three times daily as needed for muscle spasm/pain CYCLOBENZAPRINE HCL 82944188748 No Longer Active Arie Casper MD Active LOMOTIL 2.5-0.025 MG ORAL TABLET 1 to 2 four times a day as needed for diarrhea DIPHENOXYLATE-ATROPINE 68816209284 No Longer Active Fozia Casper MD Active MACROBID 100 MG ORAL CAPSULE 1 cap by mouth twice daily NITROFURANTOIN MONOHYD MACRO 54919893749 No Longer Active Arie Casper MD Active ZYRTEC ALLERGY 10 MG ORAL CAPSULE 1 po qd CE TIRIZINE HCL 98988820596 No Longer Active Arie Casper MD Active AZITHROMYCIN 250 MG ORAL TABLET 2 po qd x 1 day, then 1 po q d x 4 days AZITHROMYCIN 21074407844 No Longer Active Jessica salgado ACCOUNTING LECTURER Active PREDNISONE 20 MG ORAL TABLET 2 tabs daily for 3 days, 1 tab daily for 3 days, 1/2 tab daily for 2 days PREDNISONE 38440944673 No Longer Active Jessica Heaton ACCOUNTING LECTURER Active PROMETHAZINE HCL 25 MG ORAL TABLET 1 four times a day as nee ded for vomiting PROMETHAZINE HCL 89833089895 No Longer Active Myrna Roberto MD Active BACTRIM DS 800-160 MG ORAL TABLET 1 twice a day 05/30 SULFAMETHOXAZOLE-TRIMETHOPRIM 00661121212 No Longer Active Myrna Roberto MD Active VICKS DAYQUIL SEVERE COLD/FLU TABLET 1 tab every 6 hours prn 201 02/22/17 [id number] TABS 18182009716 No Longer Active Chris Roberto MD Active GUAIFENESIN-CODEINE 100-10 MG/5ML ORAL SYRUP 2 tsp every 6 hours prn GUAIFENESIN-CODEINE 32513189655 No Longer Active Myrna Roberto MD Active NAPROXEN 500 MG ORAL TABLET one tab PO BID NAPR OXEN 93582456245 No Longer Active Myrna Roberto MD Active AUGMENTIN 875-125 MG ORAL TABLET 1 tab by mouth twice daily with food AMOXICILLIN-POT CLAVULANATE 73812434974 No Longer Act zaid Liliana Estrada MD PhD Active AMOXICILLIN 500 MG ORAL CAPSULE 1 tab by mouth 3 times daily 201 02/21/05 AMOXICILLIN 46902182634 No Longer Active Liliana Estrada MD PhD Active TESSALON PERLES 100 MG ORAL CAPSULE 1 tablet by mouth 3 times da cory BENZONATATE 66842310879 No Longer Active Liliana Estrada MD PhD Active FLAGYL 500 MG ORAL TABLET 1 tablet by mouth two times daily 2014 METRONIDAZOLE 00642751002 No Longer Active Nilam Doran tive ZITHROMAX 250 MG ORAL TABLET 2 po today, then 1 po q days 2-5 20 06/08/16 AZITHROMYCIN 84346701802 No Longer Active Arie Casper MD Active VITAMINS 0.8 MG ORAL TABLET take 1 tab po qday [id number] 47397859959 No Longer Active Arie Casper MD Active IBUPROFEN 800 MG ORAL TABLET take one po Q 8 hours 201 02/01/16 IBUPROFEN 51329617872 No Longer Active Arie Casper MD Acti ve [facility] TUSSIN COUGH/COLD CF 5-10-100 MG/5ML ORAL LIQUID 2 teasp oons every 4 hours [id number] 87430834185 No Longer Active Blaine Casper MD Active COMTREX COLD/COUGH DAY/NITE MS 5-2-10-325 MG ORAL 2 caps deja ry 4 hours [id number] 71963059715 No Longer Active Da aleksandra Casper MD Active CHLORASEPTIC MAX SORE THROAT 15-10 MG MOUTH/THROAT LOZENGE 1 every 2 hours prn BENZOCAINE-MENTHOL 74962550471 No Longer Active Arie Casper MD Active PREDNISONE 20 MG ORAL TABLET 2 tabs daily for 3 days, 1 tab daily for 3 days, 1/2 tab daily for 2 days PREDNISONE 84763624101 No Longer Active Jose Zhong MD Active AZITHROMYCIN 250 MG ORAL TABLET 2 po qd x 1 day, then 1 po q d x 4 days AZITHROMYCIN 18663323479 No Longer Active Jose Mcwilliams MD Active ZOFRAN ODT 4 MG ORAL TABLET DISINTEGRATING 1 po q6hr PRN Nausea ONDANSETRON 80030658519 No Longer Active Rich Rosales MD Active ZOFRAN 4 MG ORAL TABLET 1 tablet every 4 hours ONDANSETRON HCL 41062280199 No Longer Active Rich Rosales MD Activ e MUCINEX 600 MG ORAL TABLET EXTENDED RELEASE 12 HOUR Ta ke 1-2 tablets every 12 hours GUAIFENESIN 10491329225 No Longer Active Rich Rosales MD Active BACTRIM 400-80 MG ORAL TABLET take one po BID SULFAMETHOXAZOLE-TRIMETHOPRIM 54904717151 No Longer Active Abelardo HERNANDEZ Active AZITHROMYCIN 500 MG ORAL TABLET 1 PO q day x 6 days 20 03/02/23 AZITHROMYCIN 99810946193 No Longer Active Tin HERNANDEZ Activ e ZITHROMAX 250 MG ORAL TABLET 2 po today, then 1 po q days 2-5 20 10/03/08 AZITHROMYCIN 26097622902 No Longer Active Arie Casper MD Active ZITHROMAX 250 MG ORAL TABLET 2 po today, then 1 po q days 2-5 20 09/23/25 AZITHROMYCIN 00045609046 No Longer Active Arie Casper MD Active AMOXICILLIN 500 MG ORAL CAPSULE 1 tab by mouth 3 times daily 201 11/24/09 AMOXICILLIN 33699245593 No Longer Active Arie Casper MD Active BACTRIM DS 800-160 MG ORAL TABLET 1 tab by mouth twice daily 201 11/03/14 TRIMETHOPRIM-SULFAMETHOXAZOLE 32179648303 No Longer Active Fozia Casper MD Active AMOXICILLIN 500 MG ORAL TABLET take 1 tab po TID 08/05 AMOXICILLIN 10807344111 No Longer Active Arie Casper MD Acti ve BACTRIM DS 800-160 MG ORAL TABLET 1 tab by mouth twice daily 201 11/03/14 BACTRIM DS 800-160 MG ORAL TABLET 548362 TRIMETHOPRIM-SULFAMETHOXAZOLE Inactive MUCINEX 600 MG ORAL TABLET EXTENDED RELEASE 12 HOUR Ta ke 1-2 tablets every 12 hours MUCINEX 600 MG ORAL TABLET EXTENDED RELEA SE 12 HOUR GUAIFENESIN Inactive ZOFRAN 4 MG ORAL TABLET 1 tablet every 4 hours ZOFRAN 4 MG ORAL TABLET 117955 ONDANSETRON HCL Inactive ZOFRAN ODT 4 MG ORAL TABLET DISINTEGRATING 1 po q6hr PRN Nausea ZOFRAN ODT 4 MG ORAL TABLET DISINTEGRATING 613265 ONDAN SETRON Inactive CHLORASEPTIC MAX SORE THROAT 15-10 MG MOUTH/THROAT LOZENGE 1 every 2 hours prn CHLORASEPTIC MAX SORE THROAT 15-10 MG MOUTH/THROAT LOZENGE BENZOCAINE-MENTHOL Inactive COMTREX COLD/COUGH DAY/NITE MS 5-2-10-325 MG ORAL 2 caps deja ry 4 hours COMTREX COLD/COUGH DAY/NITE MS 5-2-10-325 MG ORA L [id number] Inactive [facility] TUSSIN COUGH/COLD CF 5-10-100 MG/5ML ORAL LIQUID 2 teasp oons every 4 hours [facility] TUSSIN COUGH/COLD CF 5-10-100 MG/5ML ORAL LI QUID [id number] Inactive IBUPROFEN 800 MG ORAL TABLET take one po Q 8 hours 201 02/01/16 IBUPROFEN 800 MG ORAL TABLET IBUPROFEN Inactive VITAMINS 0.8 MG ORAL TABLET take 1 tab po qday VITAMINS 0.8 MG ORAL TABLET [id number] E-FA Inactive TESSALON PERLES 100 MG ORAL CAPSULE 1 tablet by mouth 3 times da cory TESSALON PERLES 100 MG ORAL CAPSULE 021199 BENZONATATE Inactive AMOXICILLIN 500 MG ORAL CAPSULE 1 tab by mouth 3 times daily 201 02/21/05 AMOXICILLIN 500 MG ORAL CAPSULE 382292 AMOXICILLIN Inactive GUAIFENESIN-CODEINE 100-10 MG/5ML ORAL SYRUP 2 tsp every 6 hours prn GUAIFENESIN-CODEINE 100-10 MG/5ML ORAL SYRUP 823164 GUAIFENESIN-CODEINE Inactive VICKS DAYQUIL SEVERE COLD/FLU TABLET 1 tab every 6 hours prn 201 02/22/17 VICKS DAYQUIL SEVERE COLD/FLU TABLET PHENYLEPHRI [id number] TABS Inactive BACTRIM DS 800-160 MG ORAL TABLET 1 twice a day 05/30 BACTRIM DS 800-160 MG ORAL TABLET 692974 SULFAMETHOXAZOLE-TRIMETHOPRIM Inactiv e PROMETHAZINE HCL 25 MG ORAL TABLET 1 four times a day as nee ded for vomiting PROMETHAZINE HCL 25 MG ORAL TABLET 852140 PROMETHAZINE HCL Inactive ZYRTEC ALLERGY 10 MG ORAL CAPSULE 1 po qd ZYRTEC ALLERGY 10 MG ORAL CAPSULE CETIRIZINE HCL Inactive MACROBID 100 MG ORAL CAPSULE 1 cap by mouth twice daily MACROBID 100 MG ORAL CAPSULE 8139277 NITROFURANTOIN MONOHYD MACRO In active LOMOTIL 2.5-0.025 MG ORAL TABLET 1 to 2 four times a day as needed for diarrhea LOMOTIL 2.5-0.025 MG ORAL TABLET 4527766 DIPHENOXYLATE-ATROPINE Inactive CYCLOBENZAPRINE HCL 10 MG ORAL TABLET 1/2 - 1 tablet b y mouth three times daily as needed for muscle spasm/pain CYCLOBEN ZAPRINE HCL 10 MG ORAL TABLET 834019 CYCLOBENZAPRINE HCL Inactive AMOXICILLIN 500 MG ORAL TABLET 2 tabs twice a day for 10 days 20 07/09/11 AMOXICILLIN 500 MG ORAL TABLET 472919 AMOXICILLIN I nactive LOMOTIL 2.5-0.025 MG ORAL TABLET 1 to 2 four times a day as needed for diarrhea LOMOTIL 2.5-0.025 MG ORAL TABLET 0595517 DIPHENOXYLATE-ATROPINE Inactive ZOFRAN 4 MG ORAL TABLET 1 TAB PO Q 6 HRS PRN NAUSEA 20 07/10/15 ZOFRAN 4 MG ORAL TABLET 292965 ONDANSETRON HCL Inactive CITRATE OF MAGNESIA ORAL SOLUTION 1 bottle today for constipatio n CITRATE OF MAGNESIA ORAL SOLUTION 6960066 MAGNESIUM CITR ATE Inactive PROMETHAZINE HCL 12.5 MG ORAL TABLET 1 tablet by mouth every 6 hours as needed for nausea/vomiting PROMETHAZINE HCL 12.5 MG ORA L TABLET 487913 PROMETHAZINE HCL Inactive PREDNISONE 20 MG ORAL TABLET 1 tablet twice daily for 2 days, then 1 tablet once daily for 2 days PREDNISONE 20 MG ORAL TABLET 156932 PREDNISONE Inactive ALPRAZOLAM 0.25 MG ORAL TABLET 1 tablet by mouth every 8 hours as needed for stress ALPRAZOLAM 0.25 MG ORAL TABLET 119069 ALPRA ZOLAM Inactive FLONASE 50 MCG/ACT NASAL SUSPENSION 1 spray each nostr il twice daily for allergies and runny nose until gone FLON ASE 50 MCG/ACT NASAL SUSPENSION 0962442 FLUTICASONE PROPIONATE Inactive PREDNISONE 20 MG ORAL TABLET 1 tablet daily for airway inflammat ion PREDNISONE 20 MG ORAL TABLET 567829 PREDNISONE [place] ctive NAPROXEN 500 MG ORAL TABLET Take 1 tab BID NAPROXEN 500 MG ORAL TABLET 111506 NAPROXEN Inactive ZOLOFT 50 MG ORAL TABLET 1 tablet by mouth daily 12/08 ZOLOFT 50 MG ORAL TABLET 802125 SERTRALINE HCL Inactive LOMOTIL 2.5-0.025 MG ORAL TABLET 1 tab po four times a day as needed for diarrhea LOMOTIL 2.5-0.025 MG ORAL TABLET 8030373 DIPHENOXYLATE-ATROPINE Inactive CETIRIZINE HCL 10 MG ORAL TABLET 1 po qd PRN Allergies CETIRIZINE HCL 10 MG ORAL TABLET 8838332 CETIRIZINE HCL Inactiv e TUSSIONEX PENNKINETIC ER 10-8 MG/5ML ORAL SUSPENSION E XTENDED RELEASE 5ml po q12hr PRN Cough TUSSIONEX PENNKINETI C ER 10-8 MG/5ML ORAL SUSPENSION EXTENDED RELEASE HYDROCOD POLST-CHLORPHEN POLST I nactive NEXPLANON IMPLANT right arm subcutaneously NEXPLANON IMPLANT ETONOGESTREL IMPL Inactive PROTONIX 40 MG ORAL TABLET DELAYED RELEASE 1 po q a.m. PROTONIX 40 MG ORAL TABLET DELAYED RELEASE 506675 PANTOPRAZOLE SODI UM Inactive CHERATUSSIN AC 100-10 MG/5ML ORAL SYRUP 1 tsp by mouth every 4 hours as needed for cough CHERATUSSIN AC 100-10 MG/5ML ORAL SYRUP 9 58819 GUAIFENESIN-CODEINE Inactive GUAIFENESIN DM 400-20 MG ORAL [...] TID 08/05 AMOXICILLIN 500 MG ORAL TABLET 725683 AMOXICILLIN Inactive AMOXICILLIN 500 MG ORAL CAPSULE 1 tab by mouth 3 times daily 201 11/24/09 AMOXICILLIN 500 MG ORAL CAPSULE 138593 AMOXICILLIN Inactive ZITHROMAX 250 MG ORAL TABLET 2 po today, then 1 po q days 2-5 20 09/23/25 ZITHROMAX 250 MG ORAL TABLET 356087 AZITHROMYCIN [place] ctive ZITHROMAX 250 MG ORAL TABLET 2 po today, then 1 po q days 2-5 20 10/03/08 ZITHROMAX 250 MG ORAL TABLET 921446 AZITHROMYCIN [place] ctive AZITHROMYCIN 500 MG ORAL TABLET 1 PO q day x 6 days 03/02/23 AZITHROMYCIN 500 MG ORAL TABLET 8846120 AZITHROMYCIN Inactive BACTRIM 400-80 MG ORAL TABLET take one po BID BACTRIM 400- 80 MG ORAL TABLET 061266 SULFAMETHOXAZOLE-TRIMETHOPRIM Inactive AZITHROMYCIN 250 MG ORAL TABLET 2 po qd x 1 day, then 1 po q d x 4 days AZITHROMYCIN 250 MG ORAL TABLET 009554 AZITHROMY ALLISON Inactive PREDNISONE 20 MG ORAL TABLET 2 tabs daily for 3 days, 1 tab daily for 3 days, 1/2 tab daily for 2 days PREDNISONE 20 MG ORAL T ABLET 828693 PREDNISONE Inactive ZITHROMAX 250 MG ORAL TABLET 2 po today, then 1 po q days 2-5 20 06/08/16 ZITHROMAX 250 MG ORAL TABLET 053151 AZITHROMYCIN [place] ctive FLAGYL 500 MG ORAL TABLET 1 tablet by mouth two times daily 2014 FLAGYL 500 MG ORAL TABLET 922815 METRONIDAZOLE Inacti ve AUGMENTIN 875-125 MG ORAL TABLET 1 tab by mouth twice daily with food AUGMENTIN 875-125 MG ORAL TABLET 012666 AMOXICIL ELSA-POT CLAVULANATE Inactive NAPROXEN 500 MG ORAL TABLET one tab PO BID NAPROXEN 500 MG ORAL TABLET 409615 NAPROXEN Inactive PREDNISONE 20 MG ORAL TABLET 2 tabs daily for 3 days, 1 tab daily for 3 days, 1/2 tab daily for 2 days PREDNISONE 20 MG ORAL T ABLET 199869 PREDNISONE Inactive AZITHROMYCIN 250 MG ORAL TABLET 2 po qd x 1 day, then 1 po q d x 4 days AZITHROMYCIN 250 MG ORAL TABLET 295465 AZITHROMY ALLISON Inactive PREDNISONE 20 MG ORAL TABLET 2 tabs daily for 3 days, 1 tab daily for 3 days, 1/2 tab daily for 2 days PREDNISONE 20 MG ORAL T ABLET 485182 PREDNISONE Inactive ZITHROMAX Z-EMIL 250 MG ORAL TABLET 2 today, then 1 daily for 4 d ays ZITHROMAX Z-EMIL 250 MG ORAL TABLET 096970 AZITHROMYCIN Inactive CEFDINIR 300 MG ORAL CAPSULE [...] days PREDNISONE 20 MG ORAL T ABLET 618437 PREDNISONE Inactive BACTRIM DS 800-160 MG ORAL TABLET 1 tab by mouth twice daily 201 05/02/30 BACTRIM DS 800-160 MG ORAL TABLET 190280 TRIMETHOPRIM-SULFAMETHOXAZOLE Inactive ZITHROMAX Z-EMIL 250 MG ORAL TABLET 2 today, then 1 daily for 4 d ays ZITHROMAX Z-EMIL 250 MG ORAL TABLET 426482 AZITHROMYCIN Inactive TAMIFLU 75 MG ORAL CAPSULE 1 po BID x 5 days 0 TAMIFLU 75 MG ORAL CAPSULE 451647 OSELTAMIVIR PHOSPHATE Inactive CEFDINIR 300 MG ORAL CAPSULE 1 po BID x 10 days 2018/01/03 CEFDINIR 300 MG ORAL CAPSULE 190148 CEFDINIR Inactive ZITHROMAX Z-EMIL 250 MG TABS Take two tablets today and then 1 tablet daily for 4 days ZITHROMAX Z-EMIL 250 MG TABS 787739 AZITHROM YCIN Inactive Advance Directives Directive Description [...] d blood pressure, diastolic 78 mm[Hg] BP kenndey blood pressure, systolic 133 mm[Hg] BP sys [...] Negative Encounters Code Encounter Date Provider Facility CPT-49849 Level 3 Est. Patient 11:49:34 TRANSPORTATION MAINTENANCE SUPERVISOR Jessica boyd Formerly named [facility] CPT-92588 Level 3 Est. Patient 14:55:50 TRANSPORTATION MAINTENANCE SUPERVISOR Jose Zhong MD [facility] CPT-25562 Level 3 Est. Patient 10:21:41 TRANSPORTATION MAINTENANCE SUPERVISOR Arie mcqueen MD [facility] CPT-08707 Level 3 Est. Patient 11:35:15 TRANSPORTATION MAINTENANCE SUPERVISOR Arie mcqueen MD [facility] CPT-62315 Level 3 Est. Patient 15:40:28 CDT Brii escalante Formerly named [facility] CPT-49898 Level 3 Est. Patient 16:40:36 CDT Arie mcqueen MD [facility] CPT-50871 Level 4 Est. Patient 15:29:22 TRANSPORTATION MAINTENANCE SUPERVISOR Arie mcqueen MD [facility] CPT-43146 Level 3 Est. Patient 15:18:16 TRANSPORTATION MAINTENANCE SUPERVISOR Jono [facility] CPT-55981 Level 4 Est. Patient 12:08:40 TRANSPORTATION MAINTENANCE SUPERVISOR Brii Are ll ACCOUNTING LECTURER [facility] CPT-38499 Level 3 Est. Patient 09:24:42 CDT Brii Are ll ACCOUNTING LECTURER [facility] CPT-80436 Level 3 Est. Patient 09:12:56 CDT Arie mcqueen MD [facility] CPT-89841 Level 3 Est. Patient 16:40:54 CDT Jose Zhong MD [facility] CPT-15028 Level 2 Est. Patient 13:01:13 CDT Brii Are ll Formerly named [facility] CPT-16917 Level 3 Est. Patient 11:55:30 TRANSPORTATION MAINTENANCE SUPERVISOR Jono Cheema [facility]-18212 Level 3 Est. Patient 09:52:36 TRANSPORTATION MAINTENANCE SUPERVISOR Brii Are ll [facility] CPT-07952 Level 3 Est. Patient 16:25:33 TRANSPORTATION MAINTENANCE SUPERVISOR Rich Rosales MD [facility] CPT-00204 Level 3 Est. Patient 20:33:55 CDT Arie mcqueen MD [facility] CPT-71948 Level 3 Est. Patient 14:18:20 CDT Rich Rosales MD [facility] CPT-98478 Level 4 Est. Patient 09:34:31 CDT Aire mcqueen MD [facility] CPT-23051 Level 3 Est. Patient 09:08:55 TRANSPORTATION MAINTENANCE SUPERVISOR Liliana vincent MD PhD [facility] CPT-97145 Level 3 Est. Patient 16:44:07 TRANSPORTATION MAINTENANCE SUPERVISOR Arie mcqueen MD [facility]-90140 Level 3 Est. Patient 10:44:27 CDT Arie mcqueen MD [facility] CPT-41530 Level 3 Est. Patient 08:55:41 CDT Jose Zhong MD [facility] CPT-90248 Level 3 Est. Patient 18:37:31 CDT Liliana vincent MD PhD [facility] CPT-92714 Level 3 Est. Patient 14:28:23 CDT Abelardo HERNANDEZ [facility] CPT-36398 Level 3 Est. Patient 15:18:13 TRANSPORTATION MAINTENANCE SUPERVISOR Arie mcqueen MD [facility] CPT-26234 Level 3 Est. Patient 10:11:29 TRANSPORTATION MAINTENANCE SUPERVISOR Arie mcqueen MD [facility] CPT-85770 Level 3 Est. Patient 10:55:57 TRANSPORTATION MAINTENANCE SUPERVISOR Jono black DO [facility] CPT-59878 Level 3 Est. Patient 17:29:05 CDT Arie mcqueen MD [facility] Procedures Code Procedure Name Date Entry Date Standard Desc ription CPT-47888 Nexplanon Removal 15:40:28 CDT CPT-76976 Sono transvag pelvis non OB uterus ovari es cervix - XRAY USE ONLY 08:58:14 TRANSPORTATION MAINTENANCE SUPERVISOR CPT-01353 UA w micro - LAB USE ONLY 16:04:56 TRANSPORTATION MAINTENANCE SUPERVISOR 2015 CPT-90121 Wet Prep/GEN - LAB USE ONLY 16:04:56 TRANSPORTATION MAINTENANCE SUPERVISOR 20 08/10/29 CPT-70705 First Vx - Ix admin via ID I M or jet injects without counseling by physician 16:57:10 CDT CPT-22277 Fluzone Preservative Free Intramuscular Suspension 16:57:10 CDT CPT-J0696 Rocephin 1000 mg (Ceftriaxone) 11:49:23 CDT CPT-J1040 Depo Medrol 80 mg (Methyl Prednisolone A cetate) 11:49:23 CDT CPT-J1100 Decadron 8mg (Dexamethasone) 11:49:23 CDT 2 CPT-21876 Abx/Therapy Injection 11:49:23 CDT CPT-11681 Abx/Therapy Injection 11:49:23 CDT CPT-27349 Abd compl w upright 09:07:26 TRANSPORTATION MAINTENANCE SUPERVISOR CPT-92564 Ear Wash 16:12:47 TRANSPORTATION MAINTENANCE SUPERVISOR CPT-OV Office Visit 11:12:01 CDT CPT-OV Office Visit 15:30:23 CDT CPT-68591 Sono pelvis non OB uterus ovaries cervix 15:50:44 CDT CPT-55684 Hand comp min 3V 16:42:32 CDT CPT-67776 Abd compl w upright 12:17:01 CDT CPT-78599 Nexplanon Placement 15:07:39 TRANSPORTATION MAINTENANCE SUPERVISOR CPT-70825 Removal of IUD 15:07:39 TRANSPORTATION MAINTENANCE SUPERVISOR CPT-91975 TB Tubersol 12:09:32 CDT CPT-95417 TB Tubersol 13:55:43 CDT
--- OUTSIDE RECORDS SUMMARY | 2020-03-03 07:41 | XMS REPORT | Clinical Summary ---
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 PANTOPRAZO LE SODIUM [id number] Active Jose Zhong MD Active PREDNISONE 20 MG TAB 2 tabs daily for 3 days, 1 t ab daily for 3 days, 1/2 tab daily for 2 days PREDNISONE 03234505275 No Longer Active Brii Larson APRN Active PREDNISONE 20 MG TAB 1 tablet twice daily for 2 d ays, then 1 tablet once daily for 2 days PREDNISONE 00645677422 No Longer Active Brii Larson APRN Active FLONASE 50 MCG/ACT SUSP 1 spray each nostril twice d aily for allergies and runny nose until gone FLUTICASONE PROPIONATE Active Jono Gagnon DO Active PROMETHAZINE HCL 12.5 MG TABS 1 tablet by mouth every 6 hours as needed for nausea/vomiting PROMETHAZINE HCL 43110926798 No Longe r Active Jono Gagnon DO Active CITRATE OF MAGNESIA ORAL SOLN 1 bottle today for constipation 20 07/10/15 MAGNESIUM CITRATE [id number] No Longer Active Jono Gagnon DO Active ZOFRAN 4 MG ORAL TABS 1 TAB PO Q 6 HRS PRN NAUSEA 2014 ONDANSETRON HCL 37053023221 No Longer Active Brii Larson APRN A ctive LOMOTIL 2.5-0.025 MG TAB 1 to 2 four times a day as needed f or diarrhea DIPHENOXYLATE-ATROPINE 63138987052 No Longer Active January Larson APRN Active AMOXICILLIN 500 MG TABS 2 tabs twice a day for 10 days AMOXICILLIN 43035453502 No Longer Active Brii Larson APRN Acti ve NEXPLANON IMPL ETONOGESTREL IMPL 86579951930 Active Rich Rosales MD Active CYCLOBENZAPRINE HCL 10 MG TABS 1/2 - 1 tablet by mouth three times daily as needed for muscle spasm/pain CYCLOBENZAPRINE HCL 54913843726 No Longer Active Arie Casper MD Active LOMOTIL 2.5-0.025 MG TABS 1 to 2 four times a day as needed for diarrhea DIPHENOXYLATE-ATROPINE 63947169068 No Longer Active Fozia Casper MD Active MACROBID 100 MG CAP 1 cap by mouth twice daily NITROFURANTOIN MONOHYD MACRO 98600908183 No Longer Active Arie Casper MD Active ZYRTEC ALLERGY 10 MG CAPS 1 po qd CETIRIZINE HCL 83081143702 No Longer Active Arie Casper MD Active AZITHROMYCIN 250 MG TABS 2 po qd x 1 day, then 1 po qd x 4 days AZITHROMYCIN 21722031220 No Longer Active Jillina Franaomi CABRERA Active PREDNISONE 20 MG TAB 2 tabs daily for 3 days, 1 t ab daily for 3 days, 1/2 tab daily for 2 days PREDNISONE 15253939229 No Longer Active Jillina Frazell RICK Active PROMETHAZINE HCL 25 MG TABS 1 four times a day as needed for vomiting PROMETHAZINE HCL 03837555609 No Longer Active Myrna Roberto MD Active BACTRIM DS 800-160 MG TABS 1 twice a day SULFAMETHOXAZOLE-TRIMETHOPRIM 13015903900 No Longer Active Myrna Roberto MD Active VICKS DAYQUIL SEVERE COLD/FLU TABS 1 tab every 6 hours prn 12/10 [id number] TABS 30639589096 No Longer Active Myrna leigh MD Active GUAIFENESIN-CODEINE 100-10 MG/5ML ORAL SYRP 2 tsp every 6 hours prn GUAIFENESIN-CODEINE 68291836894 No Longer Active Myrna Roberto MD Active NAPROXEN 500 MG TAB one tab PO BID NAPROXEN 332 65732332 No Longer Active Myrna Roberto MD Active AUGMENTIN 875-125 MG TAB 1 tab by mouth twice daily with food 20 08/12/16 AMOXICILLIN-POT CLAVULANATE 98417377053 No Longer Active Liliana Estrada MD PhD Active AMOXICILLIN 500 MG CAP 1 tab by mouth 3 times daily 08/12/16 AMOXICILLIN 39693669806 No Longer Active Liliana Estrada MD PhD Acti ve TESSALON PERLES 100 MG CAP 1 tablet by mouth 3 times daily 11/01 BENZONATATE 85082593894 No Longer Active Liliana Estrada MD PhD Active FLAGYL 500 MG TAB 1 tablet by mouth two times daily 07/11/29 METRONIDAZOLE 49923940541 No Longer Active Nilamnory Weber Active ZITHROMAX 250 MG TAB 2 po today, then 1 po q days 2-5 AZITHROMYCIN 47816649997 No Longer Active Arie Casper MD Acti ve VITAMINS 0.8 MG TABS take 1 tab po qday 08/08 [id number] 85274241128 No Longer Active Arie Casper MD Active IBUPROFEN 800 MG TABS take one po Q 8 hours IBU PROFEN 80733449670 No Longer Active Arie Casper MD Active [facility] TUSSIN COUGH/COLD CF 5-10-100 MG/5ML LIQD 2 teaspoons ev eliud 4 hours [id number] 32678142006 No Longer Active Blaine Casper MD Active COMTREX COLD/COUGH DAY/NITE MS 5-2-10-325 MG MISC 2 caps deja ry 4 hours [id number]-APAP 02998073182 No Longer Active Landon Casper MD Active CHLORASEPTIC MAX SORE THROAT 15-10 MG LOZG 1 every 2 hours prn 2 BENZOCAINE-MENTHOL 45769863358 No Longer Active Arie Marcelo Active PREDNISONE 20 MG TAB 2 tabs daily for 3 days, 1 t ab daily for 3 days, 1/2 tab daily for 2 days PREDNISONE 28815216658 No Longer Active Jose Zhong MD Active AZITHROMYCIN 250 MG TABS 2 po qd x 1 day, then 1 po qd x 4 days AZITHROMYCIN 98430659901 No Longer Active Jose Zhong MD Active ZOFRAN ODT 4 MG TBDP 1 po q6hr PRN Nausea ONDAN SETRON 34245981014 No Longer Active Rich Rosales MD Active ZOFRAN 4 MG TABS 1 tablet every 4 hours ONDANSE JERRELL HCL 15116559876 No Longer Active Rich Rosales MD Active MUCINEX 600 MG [id number]-TAD Take 1-2 tablets every 12 hours GUAIFENESIN 91776392814 No Longer Active Rich Rosales MD Activ e BACTRIM 400-80 MG TABS take one po BID SULFAMETHOXAZOLE-TRIMETHOPRIM 56167670905 No Longer Active Abelardo HERNANDEZ Active AZITHROMYCIN 500 MG TABS 1 PO q day x 6 days AZ ITHROMYCIN 21858684719 No Longer Active Tin HERNANDEZ Active ZITHROMAX 250 MG TAB 2 po today, then 1 po q days 2-5 AZITHROMYCIN 27049135117 No Longer Active Arie Casper MD Acti ve ZITHROMAX 250 MG TAB 2 po today, then 1 po q days 2-5 AZITHROMYCIN 50617502114 No Longer Active Arie Casper MD Acti ve AMOXICILLIN 500 MG CAP 1 tab by mouth 3 times daily 20 09/23/20 AMOXICILLIN 00455672056 No Longer Active Arie Casper MD Acti ve BACTRIM DS 800-160 MG TAB 1 tab by mouth twice daily 2 TRIMETHOPRIM-SULFAMETHOXAZOLE 77132980917 No Longer Active Arie Casper MD Active AMOXICILLIN 500 MG TABS take 1 tab po TID AMOXI CILLIN 49039608533 No Longer Active Arie Casper MD Active BACTRIM DS 800-160 MG TAB 1 tab by mouth twice daily 2 BACTRIM DS 800-160 MG TAB 964560 TRIMETHOPRIM-SULFAMETHOXAZOLE Inac tive MUCINEX 600 MG [id number] Take 1-2 tablets every 12 hours MUCINEX 600 MG [id number] GUAIFENESIN Inactive ZOFRAN 4 MG TABS 1 tablet every 4 hours ZOFRAN 4 MG TABS 589983 ONDANSETRON HCL Inactive ZOFRAN ODT 4 MG TBDP 1 po q6hr PRN Nausea ZOFRAN ODT 4 MG TBDP 814195 ONDANSETRON Inactive CHLORASEPTIC MAX SORE THROAT 15-10 MG LOZG 1 every 2 hours prn 2 CHLORASEPTIC MAX SORE THROAT 15-10 MG LOZG BENZO ARINA-MENTHOL Inactive COMTREX COLD/COUGH DAY/NITE MS 5-2-10-325 MG MISC 2 caps deja ry 4 hours COMTREX COLD/COUGH DAY/NITE MS 5-2-10-325 MG MIS C [id number] Inactive [facility] TUSSIN COUGH/COLD CF 5-10-100 MG/5ML LIQD 2 teaspoons ev eliud 4 hours [facility] TUSSIN COUGH/COLD CF 5-10-100 MG/5ML LIQD [id number] Inactive IBUPROFEN 800 MG TABS take one po Q 8 hours IBUPROFEN 800 MG TABS IBUPROFEN Inactive VITAMINS 0.8 MG TABS take 1 tab po qday 08/08 VITAMINS 0.8 MG TABS [id number] Inactive TESSALON PERLES 100 MG CAP 1 tablet by mouth 3 times daily 11/01 TESSALON PERLES 100 MG CAP 536748 BENZONATATE Inact zaid AMOXICILLIN 500 MG CAP 1 tab by mouth 3 times daily 08/12/16 AMOXICILLIN 500 MG CAP 241868 AMOXICILLIN Inactive GUAIFENESIN-CODEINE 100-10 MG/5ML ORAL SYRP 2 tsp every 6 hours prn GUAIFENESIN-CODEINE 100-10 MG/5ML ORAL SYRP 348418 GUAIFENESIN-CODEINE Inactive VICKS DAYQUIL SEVERE COLD/FLU TABS 1 tab every 6 hours prn 12/10 VICKS DAYQUIL SEVERE COLD/FLU TABS PHENYLEPHRINE -DM-GG-APAP TABS Inactive BACTRIM DS 800-160 MG TABS 1 twice a day BACTRIM DS 800- 160 MG TABS 169069 SULFAMETHOXAZOLE-TRIMETHOPRIM Inactive PROMETHAZINE HCL 25 MG TABS 1 four times a day as needed for vomiting PROMETHAZINE HCL 25 MG TABS 399688 PROMETHAZINE HCL Inactive ZYRTEC ALLERGY 10 MG CAPS 1 po qd ZY RTEC ALLERGY 10 MG CAPS CETIRIZINE HCL Inactive MACROBID 100 MG CAP 1 cap by mouth twice daily MACROBID 100 MG CAP 0385381 NITROFURANTOIN MONOHYD MACRO Inactive LOMOTIL 2.5-0.025 MG TABS 1 to 2 four times a day as needed for diarrhea LOMOTIL 2.5-0.025 MG TABS 1184869 DIPHENOXYLATE-A TROPINE Inactive CYCLOBENZAPRINE HCL 10 MG TABS 1/2 - 1 tablet by mouth three times daily as needed for muscle spasm/pain CYCLOBENZAP RINE HCL 10 MG TABS 773255 CYCLOBENZAPRINE HCL Inactive AMOXICILLIN 500 MG TABS 2 tabs twice a day for 10 days AMOXICILLIN 500 MG TABS 115343 AMOXICILLIN Inactive LOMOTIL 2.5-0.025 MG TAB 1 to 2 four times a day as needed f or diarrhea LOMOTIL 2.5-0.025 MG TAB 0941674 DIPHENOXYLATE-AT ROPINE Inactive ZOFRAN 4 MG ORAL TABS 1 TAB PO Q 6 HRS PRN NAUSEA 2014 ZOFRAN 4 MG ORAL TABS 186923 ONDANSETRON HCL Inactive CITRATE OF MAGNESIA ORAL SOLN 1 bottle today for constipation 20 07/10/15 CITRATE OF MAGNESIA ORAL SOLN 4435331 MAGNESIUM CITRATE Inactive PROMETHAZINE HCL 12.5 MG TABS 1 tablet by mouth every 6 hours as needed for nausea/vomiting PROMETHAZINE HCL 12.5 MG TABS 554117 PROMETHAZINE HCL Inactive PREDNISONE 20 MG TAB 1 tablet twice daily for 2 d ays, then 1 tablet once daily for 2 days PREDNISONE 20 MG TAB 816484 PREDNISONE Inac tive AMOXICILLIN 500 MG TABS take 1 tab po TID AMOXICILLIN 500 MG TABS 506337 AMOXICILLIN Inactive AMOXICILLIN 500 MG CAP 1 tab by mouth 3 times daily 09/23/20 AMOXICILLIN 500 MG CAP 682339 AMOXICILLIN Inactive ZITHROMAX 250 MG TAB 2 po today, then 1 po q days 2-5 ZITHROMAX 250 MG TAB 4842836 AZITHROMYCIN Inactive ZITHROMAX 250 MG TAB 2 po today, then 1 po q days 2-5 ZITHROMAX 250 MG TAB 7804090 AZITHROMYCIN Inactive AZITHROMYCIN 500 MG TABS 1 PO q day x 6 days 3 AZITHROMYCIN 500 MG TABS 5800447 AZITHROMYCIN Inactive BACTRIM 400-80 MG TABS take one po BID BA CTRIM 400-80 MG TABS 814808 SULFAMETHOXAZOLE-TRIMETHOPRIM Inactive AZITHROMYCIN 250 MG TABS 2 po qd x 1 day, then 1 po qd x 4 days AZITHROMYCIN 250 MG TABS 8980741 AZITHROMYCIN Inactiv e PREDNISONE 20 MG TAB 2 tabs daily for 3 days, 1 t ab daily for 3 days, 1/2 tab daily for 2 days PREDNISONE 20 MG TAB 208415 PREDNISON E Inactive ZITHROMAX 250 MG TAB 2 po today, then 1 po q days 2-5 ZITHROMAX 250 MG TAB 9981675 AZITHROMYCIN Inactive FLAGYL 500 MG TAB 1 tablet by mouth two times daily 07/11/29 FLAGYL 500 MG TAB 090665 METRONIDAZOLE Inactive AUGMENTIN 875-125 MG TAB 1 tab by mouth twice daily with food 20 08/12/16 AUGMENTIN 875-125 MG TAB 990871 AMOXICILLIN-POT CLAVULA ANGELO Inactive NAPROXEN 500 MG TAB one tab PO BID NAPROXEN 500 MG TAB 767112 NAPROXEN Inactive PREDNISONE 20 MG TAB 2 tabs daily for 3 days, 1 t ab daily for 3 days, 1/2 tab daily for 2 days PREDNISONE 20 MG TAB 001076 PREDNISON E Inactive AZITHROMYCIN 250 MG TABS 2 po qd x 1 day, then 1 po qd x 4 days AZITHROMYCIN 250 MG TABS 8997401 AZITHROMYCIN Inactiv e PREDNISONE 20 MG TAB 2 tabs daily for 3 days, 1 t ab daily for 3 days, 1/2 tab daily for 2 days PREDNISONE 20 MG TAB 922870 PREDNISON E Inactive Advance Directives Directive Description [...] Panel - Chemistry sodium, serum 136 mmol/L 308-664 6360/04/26 carbon dioxide, venous blood 29.9 mmol/L 21.0-32 [...] 284 10^3/MM^3 10*3/mm3 142-424 Lab Report: Chlamydia/GC APTIMA/[id number] - Lab chlamydia DNA probe NOT DETECTED NOT DETECTED Lab Report: Chlamydia/GC APTIMA/[id number] - Microbiology Neisseria gonorrhoeae DNA probe NOT DETECTED NO T DETECTED Lab Report: Comp. Metabolic Panel - Chem istry sodium, serum 139 mmol/L 461-743 6331/12/15 carbon dioxide, venous blood 30.2 mmol/L 21.0-32 .0 potassium, serum 3.4 mmol/L 3.5-5.2 chloride, serum 101 mmol/L 98-107 blood glucose 92 mg/dL 65-110 urea nitrogen, blood 5 mg/dL 7-18 creatinine, serum 0.81 mg/dL 0.55-1.30 alanine aminotransferase (SGPT), serum 20 U/L 12-78 aspartate aminotransferase (SGOT), serum 10 U/L 15-37 calcium, serum 8.4 mg/dL 8.5-10.1 bilirubin, serum, total 0.60 mg/dL 0.00-1.00 Lab Report: HIV-1/2 Agn/Darcy/53740, HEPAT ITIS PANEL, ACUTE W/REFLE - Chemistry [...] pH, urine, semiquantitative 5.5 5.0-8.5 Lab Report: CG, UADIP W/MICRO, AUTO - Chemistry protein, total [...] Negative Encounters Code Encounter Date Provider Facility CPT-51686 Level 3 Est. Patient 16:40:54 CDT Jose Zhong MD [facility] CPT-25141 Level 2 Est. Patient 13:01:13 CDT Steve [facility] CPT-43037 Level 3 Est. Patient 11:55:30 INSTRUCTIONAL CONSULTANT Jono black DO [facility] CPT-15974 Level 3 Est. 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 CPT-21906 Level 3 Est. Patient 16:25:33 INSTRUCTIONAL CONSULTANT Rich Rosales MD [facility] CPT-79270 Level 3 Est. Patient 20:33:55 CDT Arie mcqueen MD [facility] CPT-36019 Level 3 Est. Patient 14:18:20 CDT Rich Rosales MD [facility] CPT-74994 Level 4 Est. Patient 09:34:31 CDT Arie mcqueen MD [facility] CPT-89550 Level 3 Est. Patient 09:08:55 INSTRUCTIONAL CONSULTANT Liliana vincent MD PhD [facility] CPT-62708 Level 3 Est. Patient 16:44:07 INSTRUCTIONAL CONSULTANT Arie mcqueen MD [facility] CPT-27311 Level 3 Est. Patient 10:44:27 CDT Arie mcqueen MD [facility] CPT-92104 Level 3 Est. Patient 08:55:41 CDT Jose Zhong MD [facility] CPT-07440 Level 3 Est. Patient 18:37:31 CDT Liliana vincent MD PhD [facility] CPT-28492 Level 3 Est. Patient 14:28:23 CDT [address] [facility] CPT-90162 Level 3 Est. Patient 15:18:13 INSTRUCTIONAL CONSULTANT Arie mcqueen MD [facility] CPT-92314 Level 3 Est. Patient 10:11:29 INSTRUCTIONAL CONSULTANT Arie mcqueen MD [facility] CPT-30392 Level 3 Est. Patient 10:55:57 INSTRUCTIONAL CONSULTANT Jono black DO [facility] CPT-88588 Level 3 Est. Patient 17:29:05 CDT Arie mcqueen MD [facility] Procedures Code Procedure Name Date Entry Date Standard Desc ription CPT-17580 Abd compl w upright 09:07:26 INSTRUCTIONAL CONSULTANT CPT-16369 Ear Wash 16:12:47 INSTRUCTIONAL CONSULTANT CPT-OV Office Visit 11:12:01 CDT CPT-OV Office Visit 15:30:23 CDT CPT-78790 Sono pelvis non OB uterus ovaries cervix 15:50:44 CDT CPT-42990 Hand comp min 3V 16:42:32 CDT CPT-73600 Abd compl w upright 12:17:01 CDT CPT-42069 Nexplanon Placement 15:07:39 INSTRUCTIONAL CONSULTANT CPT-09470 Removal of IUD 15:07:39 INSTRUCTIONAL CONSULTANT CPT-60275 TB Tubersol 12:09:32 CDT CPT-02937 TB Tubersol 13:55:43 CDT
--- OUTSIDE RECORDS SUMMARY | 2020-03-03 07:42 | XMS REPORT | Clinical Summary ---
Author Author Admin, Diamante Marcelo Organization [facility] [employer] Address Unknown Phone Unavailable Allergies, Adverse Reactions, [...] site Abdominal pain 789.00 Active Brii Larson WEEKEND ANCHOR Abdominal pain, unspecified site Diarrhea 787.91 Resolved [...] cute pharyngitis Nausea 787.02 Active Brii Larson WEEKEND ANCHOR Nausea alone URI 465.9 Active Jono Gagnon [...] Anxiety with depression 300.4 Active Glenn Larson WEEKEND ANCHOR Dysthymic disorder URI 465.9 Active Jono Gagnon [...] cheema MD PhD Urinary frequency ICD-788.41 Inactive Roseann willett Medication List Medication Instructions Start Date Stop Date Generic Name NDC Status Provider Patient Instruction NAPROXEN 500 MG TAB Take 1 tab BID NAPROXEN [id number] 15 Active Brii Larson APRN Active NEXPLANON IMPL Left arm subcutaneously ETONOGES TREL IMPL 14420692742 Active Brii Larson APRN Active CEFDINIR 300 MG CAPS 1 po BID x 10 days CEFDINI R 92871669329 No Longer Active Brii Larson APRN Active PREDNISONE 20 MG TAB 1 tablet daily for airway inflammation 2015 PREDNISONE 88706485582 No Longer Active Brii Larson APRN Active CEFDINIR 300 MG CAPS 1 po BID x 10 days CEFDINI R 57763283234 No Longer Active Jono W Kalin DO Active FLONASE 50 MCG/ACT SUSP 1 spray each nostril twice d aily for allergies and runny nose until gone FLUTICASONE PROPIONATE No Longe r Active Jono Gagnon DO Active ALPRAZOLAM 0.25 MG TAB 1 tablet by mouth every 8 hours as ne eded for stress ALPRAZOLAM 56276116583 No Longer Active Jono Gagnon DO Active ZOLOFT 50 MG TAB 1 tablet by mouth daily SERTRA LINE HCL 12072539514 Active Arie Casper MD Active LOMOTIL 2.5-0.025 MG TAB 1 tab po four times a day as needed for diarrhea DIPHENOXYLATE-ATROPINE 46663838831 Active Brii Larson APRN Active ZITHROMAX Z-EMIL 250 MG TABS 2 today, then 1 daily for 4 days 201 03/31/18 AZITHROMYCIN 28221611713 No Longer Active Arie Casper MD Active PROTONIX 40 MG ORAL TBEC 1 po q a.m. PANTOPRAZO LE SODIUM 03640315163 Active Arie Casper MD Active PREDNISONE 20 MG TAB 2 tabs daily for 3 days, 1 t ab daily for 3 days, 1/2 tab daily for 2 days PREDNISONE 71944063470 No Longer Active Brii Larson APRN Active PREDNISONE 20 MG TAB 1 tablet twice daily for 2 d ays, then 1 tablet once daily for 2 days PREDNISONE 40884092027 No Longer Active Brii Larson APRN Active PROMETHAZINE HCL 12.5 MG TABS 1 tablet by mouth every 6 hours as needed for nausea/vomiting PROMETHAZINE HCL 89245606559 No Longe r Active Jono Gagnon DO Active CITRATE OF MAGNESIA ORAL SOLN 1 bottle today for constipation 20 07/10/15 MAGNESIUM CITRATE 88677084107 No Longer Active Jono Gagnon DO Active ZOFRAN 4 MG ORAL TABS 1 TAB PO Q 6 HRS PRN NAUSEA 2014 ONDANSETRON HCL 97342455301 No Longer Active Brii Larson APRN A ctive LOMOTIL 2.5-0.025 MG TAB 1 to 2 four times a day as needed f or diarrhea DIPHENOXYLATE-ATROPINE 50985684580 No Longer Active January Larson APRN Active AMOXICILLIN 500 MG TABS 2 tabs twice a day for 10 days AMOXICILLIN 56447364572 No Longer Active Brii Larson APRN Acti ve CYCLOBENZAPRINE HCL 10 MG TABS 1/2 - 1 tablet by mouth three times daily as needed for muscle spasm/pain CYCLOBENZAPRINE HCL 40245256199 No Longer Active Arie Casper MD Active LOMOTIL 2.5-0.025 MG TABS 1 to 2 four times a day as needed for diarrhea DIPHENOXYLATE-ATROPINE 47492815310 No Longer Active D freddy Casper MD Active MACROBID 100 MG CAP 1 cap by mouth twice daily NITROFURANTOIN MONOHYD MACRO 72452372034 No Longer Active Arie Casper MD Active ZYRTEC ALLERGY 10 MG CAPS 1 po qd CETIRIZINE HCL 57508720970 No Longer Active Arie Casper MD Active AZITHROMYCIN 250 MG TABS 2 po qd x 1 day, then 1 po qd x 4 days AZITHROMYCIN 97713487001 No Longer Active Jillina Frazelanette CABRERA Active PREDNISONE 20 MG TAB 2 tabs daily for 3 days, 1 t ab daily for 3 days, 1/2 tab daily for 2 days PREDNISONE 16628882587 No Longer Active Jillina Frazell RICK Active PROMETHAZINE HCL 25 MG TABS 1 four times a day as needed for vomiting PROMETHAZINE HCL 60591772141 No Longer Active Myrna Roberto MD Active BACTRIM DS 800-160 MG TABS 1 twice a day SULFAMETHOXAZOLE-TRIMETHOPRIM 94589897128 No Longer Active Myrna Roberto MD Active VICKS DAYQUIL SEVERE COLD/FLU TABS 1 tab every 6 hours prn 12/10 [id number] TABS 25587219022 No Longer Active Myrna leigh MD Active GUAIFENESIN-CODEINE 100-10 MG/5ML ORAL SYRP 2 tsp every 6 hours prn GUAIFENESIN-CODEINE 08689845667 No Longer Active Myrna Roberto MD Active NAPROXEN 500 MG TAB one tab PO BID NAPROXEN 332 29377476 No Longer Active Myrna Roberto MD Active AUGMENTIN 875-125 MG TAB 1 tab by mouth twice daily with food 20 08/12/16 AMOXICILLIN-POT CLAVULANATE 63123172673 No Longer Active Liliana Estrada MD PhD Active AMOXICILLIN 500 MG CAP 1 tab by mouth 3 times daily 08/12/16 AMOXICILLIN 76086227648 No Longer Active Liliana Estrada MD PhD Acti ve TESSALON PERLES 100 MG CAP 1 tablet by mouth 3 times daily 11/01 BENZONATATE 31294041534 No Longer Active Liliana Estrada MD PhD Active FLAGYL 500 MG TAB 1 tablet by mouth two times daily 07/11/29 METRONIDAZOLE 67878576299 No Longer Active Nilam Weber Active ZITHROMAX 250 MG TAB 2 po today, then 1 po q days 2-5 AZITHROMYCIN 93890114789 No Longer Active Arie Casper MD Acti ve VITAMINS 0.8 MG TABS take 1 tab po qday 08/08 [id number] 90437862863 No Longer Active Arie Casper MD Active IBUPROFEN 800 MG TABS take one po Q 8 hours IBU PROFEN 60129620740 No Longer Active Arie Casper MD Active [facility] TUSSIN COUGH/COLD CF 5-10-100 MG/5ML LIQD 2 teaspoons ev eliud 4 hours [id number] 07171034476 No Longer Active Blaine Casper MD Active COMTREX COLD/COUGH DAY/NITE MS 5-2-10-325 MG MISC 2 caps deja ry 4 hours [id number] 75702146650 No Longer Active Da aleksandra Casper MD Active CHLORASEPTIC MAX SORE THROAT 15-10 MG LOZG 1 every 2 hours prn 2 BENZOCAINE-MENTHOL 64760871223 No Longer Active Arie Marcelo Active PREDNISONE 20 MG TAB 2 tabs daily for 3 days, 1 t ab daily for 3 days, 1/2 tab daily for 2 days PREDNISONE 05842939839 No Longer Active Jose Zhong MD Active AZITHROMYCIN 250 MG TABS 2 po qd x 1 day, then 1 po qd x 4 days AZITHROMYCIN 90596638873 No Longer Active Jose Zhong MD Active ZOFRAN ODT 4 MG TBDP 1 po q6hr PRN Nausea ONDAN SETRON 70297999291 No Longer Active Rich Rosales MD Active ZOFRAN 4 MG TABS 1 tablet every 4 hours ONDANSE JERRELL HCL 90579158860 No Longer Active Rich Rosales MD Active MUCINEX 600 MG HE96W-QDB Take 1-2 tablets every 12 hours GUAIFENESIN 01060601621 No Longer Active Rich Rosales MD Activ e BACTRIM 400-80 MG TABS take one po BID SULFAMETHOXAZOLE-TRIMETHOPRIM 58616548669 No Longer Active Abelardo HERNANDEZ Active AZITHROMYCIN 500 MG TABS 1 PO q day x 6 days AZ ITHROMYCIN 67483946858 No Longer Active Tin HERNANDEZ Active ZITHROMAX 250 MG TAB 2 po today, then 1 po q days 2-5 AZITHROMYCIN 40221990088 No Longer Active Arie Casper MD Acti ve ZITHROMAX 250 MG TAB 2 po today, then 1 po q days 2-5 AZITHROMYCIN 81440209917 No Longer Active Arie Casper MD Acti ve AMOXICILLIN 500 MG CAP 1 tab by mouth 3 times daily 20 09/23/20 AMOXICILLIN 89995744472 No Longer Active Arie Casper MD Acti ve BACTRIM DS 800-160 MG TAB 1 tab by mouth twice daily 2 TRIMETHOPRIM-SULFAMETHOXAZOLE 65924960840 No Longer Active Arie Casper MD Active AMOXICILLIN 500 MG TABS take 1 tab po TID AMOXI CILLIN 54745470506 No Longer Active Arie Casper MD Active BACTRIM DS 800-160 MG TAB 1 tab by mouth twice daily 2 BACTRIM DS 800-160 MG TAB 704808 TRIMETHOPRIM-SULFAMETHOXAZOLE Inac tive MUCINEX 600 MG [id number] Take 1-2 tablets every 12 hours MUCINEX 600 MG [id number] GUAIFENESIN Inactive ZOFRAN 4 MG TABS 1 tablet every 4 hours ZOFRAN 4 MG TABS 229413 ONDANSETRON HCL Inactive ZOFRAN ODT 4 MG TBDP 1 po q6hr PRN Nausea ZOFRAN ODT 4 MG TBDP 933300 ONDANSETRON Inactive CHLORASEPTIC MAX SORE THROAT 15-10 MG LOZG 1 every 2 hours prn 2 CHLORASEPTIC MAX SORE THROAT 15-10 MG LOZG BENZO ARINA-MENTHOL Inactive COMTREX COLD/COUGH DAY/NITE MS 5-2-10-325 MG MISC 2 caps deja ry 4 hours COMTREX COLD/COUGH DAY/NITE MS 5-2-10-325 MG MIS C [id number]-VTY-MO-APAP Inactive [facility] TUSSIN COUGH/COLD CF 5-10-100 MG/5ML LIQD 2 teaspoons ev eliud 4 hours [facility] TUSSIN COUGH/COLD CF 5-10-100 MG/5ML LIQD [id number]-SQ Inactive IBUPROFEN 800 MG TABS take one po Q 8 hours IBUPROFEN 800 MG TABS IBUPROFEN Inactive VITAMINS 0.8 MG TABS take 1 tab po qday 08/08 VITAMINS 0.8 MG TABS [id number] Inactive TESSALON PERLES 100 MG CAP 1 tablet by mouth 3 times daily 11/01 TESSALON PERLES 100 MG CAP 409332 BENZONATATE Inact zaid AMOXICILLIN 500 MG CAP 1 tab by mouth 3 times daily 08/12/16 AMOXICILLIN 500 MG CAP 724303 AMOXICILLIN Inactive GUAIFENESIN-CODEINE 100-10 MG/5ML ORAL SYRP 2 tsp every 6 hours prn GUAIFENESIN-CODEINE 100-10 MG/5ML ORAL SYRP 186834 GUAIFENESIN-CODEINE Inactive VICKS DAYQUIL SEVERE COLD/FLU TABS 1 tab every 6 hours prn 12/10 VICKS DAYQUIL SEVERE COLD/FLU TABS PHENYLEPHRINE -DM-GG-APAP TABS Inactive BACTRIM DS 800-160 MG TABS 1 twice a day BACTRIM DS 800- 160 MG TABS 379603 SULFAMETHOXAZOLE-TRIMETHOPRIM Inactive PROMETHAZINE HCL 25 MG TABS 1 four times a day as needed for vomiting PROMETHAZINE HCL 25 MG TABS 446476 PROMETHAZINE HCL Inactive ZYRTEC ALLERGY 10 MG CAPS 1 po qd ZY RTEC ALLERGY 10 MG CAPS CETIRIZINE HCL Inactive MACROBID 100 MG CAP 1 cap by mouth twice daily MACROBID 100 MG CAP 0228631 NITROFURANTOIN MONOHYD MACRO Inactive LOMOTIL 2.5-0.025 MG TABS 1 to 2 four times a day as needed for diarrhea LOMOTIL 2.5-0.025 MG TABS 6069888 DIPHENOXYLATE-A TROPINE Inactive CYCLOBENZAPRINE HCL 10 MG TABS 1/2 - 1 tablet by mouth three times daily as needed for muscle spasm/pain CYCLOBENZAP RINE HCL 10 MG TABS 377974 CYCLOBENZAPRINE HCL Inactive AMOXICILLIN 500 MG TABS 2 tabs twice a day for 10 days AMOXICILLIN 500 MG TABS 670005 AMOXICILLIN Inactive LOMOTIL 2.5-0.025 MG TAB 1 to 2 four times a day as needed f or diarrhea LOMOTIL 2.5-0.025 MG TAB 6710404 DIPHENOXYLATE-AT ROPINE Inactive ZOFRAN 4 MG ORAL TABS 1 TAB PO Q 6 HRS PRN NAUSEA 2014 ZOFRAN 4 MG ORAL TABS 962671 ONDANSETRON HCL Inactive CITRATE OF MAGNESIA ORAL SOLN 1 bottle today for constipation 20 07/10/15 CITRATE OF MAGNESIA ORAL SOLN 9419335 MAGNESIUM CITRATE Inactive PROMETHAZINE HCL 12.5 MG TABS 1 tablet by mouth every 6 hours as needed for nausea/vomiting PROMETHAZINE HCL 12.5 MG TABS 631128 PROMETHAZINE HCL Inactive PREDNISONE 20 MG TAB 1 tablet twice daily for 2 d ays, then 1 tablet once daily for 2 days PREDNISONE 20 MG TAB 044578 PREDNISONE Inac tive ALPRAZOLAM 0.25 MG TAB 1 tablet by mouth every 8 hours as ne eded for stress ALPRAZOLAM 0.25 MG TAB 963237 ALPRAZOLAM Inact zaid FLONASE 50 MCG/ACT SUSP 1 spray each nostril twice d aily for allergies and runny nose until gone FLONASE 50 MCG/ACT SUSP F LUTICASONE PROPIONATE Inactive PREDNISONE 20 MG TAB 1 tablet daily for airway inflammation 2015 PREDNISONE 20 MG TAB 189430 PREDNISONE Inactive AMOXICILLIN 500 MG TABS take 1 tab po TID AMOXICILLIN 500 MG TABS 688160 AMOXICILLIN Inactive AMOXICILLIN 500 MG CAP 1 tab by mouth 3 times daily 09/23/20 AMOXICILLIN 500 MG CAP 829364 AMOXICILLIN Inactive ZITHROMAX 250 MG TAB 2 po today, then 1 po q days 2-5 ZITHROMAX 250 MG TAB 7398166 AZITHROMYCIN Inactive ZITHROMAX 250 MG TAB 2 po today, then 1 po q days 2-5 ZITHROMAX 250 MG TAB 4693103 AZITHROMYCIN Inactive AZITHROMYCIN 500 MG TABS 1 PO q day x 6 days 3 AZITHROMYCIN 500 MG TABS 6387292 AZITHROMYCIN Inactive BACTRIM 400-80 MG TABS take one po BID BA CTRIM 400-80 MG TABS 325840 SULFAMETHOXAZOLE-TRIMETHOPRIM Inactive AZITHROMYCIN 250 MG TABS 2 po qd x 1 day, then 1 po qd x 4 days AZITHROMYCIN 250 MG TABS 3100475 AZITHROMYCIN Inactiv e PREDNISONE 20 MG TAB 2 tabs daily for 3 days, 1 t ab daily for 3 days, 1/2 tab daily for 2 days PREDNISONE 20 MG TAB 274059 PREDNISON E Inactive ZITHROMAX 250 MG TAB 2 po today, then 1 po q days 2-5 ZITHROMAX 250 MG TAB 0762196 AZITHROMYCIN Inactive FLAGYL 500 MG TAB 1 tablet by mouth two times daily 07/11/29 FLAGYL 500 MG TAB 624701 METRONIDAZOLE Inactive AUGMENTIN 875-125 MG TAB 1 tab by mouth twice daily with food 20 08/12/16 AUGMENTIN 875-125 MG TAB 186597 AMOXICILLIN-POT CLAVULA ANGELO Inactive NAPROXEN 500 MG TAB one tab PO BID NAPROXEN 500 MG TAB 124736 NAPROXEN Inactive PREDNISONE 20 MG TAB 2 tabs daily for 3 days, 1 t ab daily for 3 days, 1/2 tab daily for 2 days PREDNISONE 20 MG TAB 537736 PREDNISON E Inactive AZITHROMYCIN 250 MG TABS 2 po qd x 1 day, then 1 po qd x 4 days AZITHROMYCIN 250 MG TABS 8681457 AZITHROMYCIN Inactiv e PREDNISONE 20 MG TAB 2 tabs daily for 3 days, 1 t ab daily for 3 days, 1/2 tab daily for 2 days PREDNISONE 20 MG TAB 482102 PREDNISON E Inactive ZITHROMAX Z-EMIL 250 MG TABS 2 today, then 1 daily for 4 days 201 03/31/18 ZITHROMAX Z-EMIL 250 MG TABS 5941986 AZITHROMYCIN Inac tive CEFDINIR 300 MG CAPS [...] Panel - Chemistry sodium, serum 136 mmol/L 541-944 8741/04/26 carbon dioxide, venous blood 29.9 mmol/L 21.0-32 [...] 11 .6-14.8 platelet count 284 10^3/MM^3 10*3/mm3 864-996 7219/04/26 erythrocyte (RBC) count 4.76 10^6/MM^3 10*6/mm3 4.04-5.4 [...] 1.025 1.000-1.030 pH, urine, semiquantitative 7.0 5.0-8.5 glucose, urine, semiquantitative Negative Neg ative ketones, urine, by test strip Negative Negati ve bilirubin, urine Negative Negative Lab [...] ative Encounters Code Encounter Date Provider Facility CPT-96563 Level 3 Est. Patient 15:18:16 COMPUTER EQUIPMENT INSTALLER Jono black [facility] CPT-58328 Level 4 Est. Patient 12:08:40 COMPUTER EQUIPMENT INSTALLER [facility] CPT-27933 Level 3 Est. Patient 09:24:[address] [facility] CPT-75939 Level 3 Est. Patient 09:12:56 CDT Arie mcqueen MD [facility] CPT-22822 Level 3 Est. Patient 16:40:54 CDT Jose Zhong MD [facility] CPT-82639 Level 2 Est. Patient 13:01:[address] [facility] CPT-68676 Level 3 Est. Patient 11:55:30 COMPUTER EQUIPMENT INSTALLER Jono black [facility] CPT-48635 Level 3 Est. Patient 09:52:36 COMPUTER EQUIPMENT INSTALLER Steve PAREKHN [facility] CPT-94470 Level 3 Est. Patient 16:25:33 COMPUTER EQUIPMENT INSTALLER Rich Rosales MD [facility]-59387 Level 3 Est. Patient 20:33:55 CDT Arie mcqueen MD [facility]-12102 Level 3 Est. Patient 14:18:20 CDT Rich Rosales MD [facility]-47370 Level 4 Est. Patient 09:34:31 CDT Arie mcqueen MD [facility]-07982 Level 3 Est. Patient 09:08:55 COMPUTER EQUIPMENT INSTALLER Liliana vincent MD [facility]-12921 Level 3 Est. Patient 16:44:07 COMPUTER EQUIPMENT INSTALLER Arie mcqueen MD [facility]-38282 Level 3 Est. Patient 10:44:27 CDT Arie mcqueen MD [facility]-13528 Level 3 Est. Patient 08:55:41 CDT Jose Zhong MD [facility]-59834 Level 3 Est. Patient 18:37:31 CDT Liliana vincent MD [facility]-87963 Level 3 Est. Patient 14:28:23 CDT Abelardo HERNANDEZ [facility]-27663 Level 3 Est. Patient 15:18:13 COMPUTER EQUIPMENT INSTALLER Arie mcqueen MD [facility]-45025 Level 3 Est. Patient 10:11:29 COMPUTER EQUIPMENT INSTALLER Arie mcqueen MD [facility]-64781 Level 3 Est. Patient 10:55:57 COMPUTER EQUIPMENT INSTALLER Jono black DO [facility]-38952 Level 3 Est. Patient 17:29:05 CDT Arie mcqueen MD [facility] Procedures Code Procedure Name Date Entry Date Standard Desc ription CPT-62817 Sono transvag pelvis non OB uterus ovari es cervix - XRAY USE ONLY 08:58:14 COMPUTER EQUIPMENT INSTALLER CPT-79136 UA w micro - LAB USE ONLY 16:04:56 COMPUTER EQUIPMENT INSTALLER 2015 CPT-69110 Wet Prep/GEN - LAB USE ONLY 16:04:56 COMPUTER EQUIPMENT INSTALLER 20 08/10/29 CPT-80343 First Vx - Ix admin via ID I M or jet injects without counseling by physician 16:57:10 CDT CPT-73038 Fluzone Preservative Free Intramuscular Suspension 16:57:10 CDT CPT-J0696 Rocephin 1000 mg (Ceftriaxone) 11:49:23 CDT CPT-J1040 Depo Medrol 80 mg (Methyl Prednisolone A cetate) 11:49:23 CDT CPT-J1100 Decadron 8mg (Dexamethasone) 11:49:23 CDT 2 CPT-07838 Abx/Therapy Injection 11:49:23 CDT CPT-25978 Abx/Therapy Injection 11:49:23 CDT CPT-78772 Abd compl w upright 09:07:26 COMPUTER EQUIPMENT INSTALLER CPT-16600 Ear Wash 16:12:47 COMPUTER EQUIPMENT INSTALLER CPT-OV Office Visit 11:12:01 CDT CPT-OV Office Visit 15:30:23 CDT CPT-70257 Sono pelvis non OB uterus ovaries cervix 15:50:44 CDT CPT-87048 Hand comp min 3V 16:42:32 CDT CPT-28333 Abd compl w upright 12:17:01 CDT CPT-84404 Nexplanon Placement 15:07:39 COMPUTER EQUIPMENT INSTALLER CPT-70544 Removal of IUD 15:07:39 COMPUTER EQUIPMENT INSTALLER CPT-03309 TB Tubersol 12:09:32 CDT CPT-20272 TB Tubersol 13:55:43 CDT
--- OUTSIDE RECORDS SUMMARY | 2020-03-03 07:42 | XMS REPORT | Clinical Summary ---
Author Author Admin, Diamante Marcelo Organization [facility] Address Unknown Phone Unavailable Allergies, [...] cute pharyngitis Nausea 787.02 Active Brii Larson AUTOMATION/CONTROLS MANAGER Nausea alone URI 465.9 Active Jono Gagnon DO Acu te upper respiratory infections of unspecified site Allergic rhinitis 477.9 Active Brii Christianson PRN Allergic rhinitis, cause unspecified Abdominal pain, right lower quadrant 789.03 Active Jose Zhong MD Abdominal pain, right lower quadrant Urinary frequency 788.41 Inactive Roseann Crawford Urinary frequency Urinary frequency 788.41 Active 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, UNDERLINER Urinary frequency Sinusitis - acute 461.9 Active Brii Christianson PRN Acute sinusitis, unspecified Anxiety with depression 300.4 Active Glenn Larson AUTOMATION/CONTROLS MANAGER Dysthymic disorder URI 465.9 Active Jono Gagnon DO Acu te upper respiratory infections of unspecified site Vaginal bleeding 623.8 Active Brii MARROQUIN RN Other specified noninflammatory disorders of vagina High risk sexual behavior V69.2 Active Arie Casper MD High-risk sexual behavior GERD 530.81 Active Arie Casper MD Esophageal reflux Encounter for surveillance of implantable subdermal contraceptiv e Active Brii Neo AUTOMATION/CONTROLS MANAGER Vaginal bleeding 623.8 Active Arie Casper MD [...] RELEASE 1 po q a.m. PANTOPRAZOLE SODIUM 49424488348 No Longer Active Arie Casper MD Active BACTRIM DS 800-160 MG ORAL TABLET 1 tab by mouth twice daily 201 05/02/30 TRIMETHOPRIM-SULFAMETHOXAZOLE 79259124096 No Longer Active R [facility] Ty Active NEXPLANON IMPLANT right arm subcutaneously ETONOGESTREL IMPL 46656476887 No Longer Active Brii Larson APRN Acti ve TUSSIONEX PENNKINETIC ER 10-8 MG/5ML ORAL SUSPENSION E XTENDED RELEASE 5ml po q12hr PRN Cough HYDROCOD POLST-CHLORPHEN POLST 5 7282568533 No Longer Active Brii Larson APRN Active CETIRIZINE HCL 10 MG ORAL TABLET 1 po qd PRN Allergies CETIRIZINE HCL 06857849381 No Longer Active Brii Larson APRN Ac tive PREDNISONE 20 MG ORAL TABLET 2 tabs daily for 3 days, 1 tab daily for 3 days, 1/2 tab daily for 2 days PREDNISONE 67314031376 No Longer Active Arie Casper MD Active LOMOTIL 2.5-0.025 MG ORAL TABLET 1 tab po four times a day as needed for diarrhea DIPHENOXYLATE-ATROPINE 83384685586 No Lo nger Active Arie Casper MD Active ZOLOFT 50 MG ORAL TABLET 1 tablet by mouth daily 12/08 SERTRALINE HCL 60519934883 No Longer Active Arie Casper MD Ac tive NAPROXEN 500 MG ORAL TABLET Take 1 tab BID NAPR OXEN 65843062164 No Longer Active Arie Casper MD Active CEFDINIR 300 MG ORAL CAPSULE 1 po BID x 10 days CEFDINIR 38756002996 No Longer Active Brii Larson APRN Active PREDNISONE 20 MG ORAL TABLET 1 tablet daily for airway inflammat ion PREDNISONE 06045285917 No Longer Active Brii Larson APRN Active CEFDINIR 300 MG ORAL CAPSULE 1 po BID x 10 days CEFDINIR 24917409066 No Longer Active Jono Gagnon DO Active FLONASE 50 MCG/ACT NASAL SUSPENSION 1 spray each nostr il twice daily for allergies and runny nose until gone FLUT ICASONE PROPIONATE 19132173061 No Longer Active Jono Gagnon DO Active ALPRAZOLAM 0.25 MG ORAL TABLET 1 tablet by mouth every 8 hours as needed for stress ALPRAZOLAM 57101951327 No Longer Active Jono Gagnon DO Active ZITHROMAX Z-EMIL 250 MG ORAL TABLET 2 today, then 1 daily for 4 d ays AZITHROMYCIN 89204705826 No Longer Active Arie Casper MD Active PREDNISONE 20 MG ORAL TABLET 2 tabs daily for 3 days, 1 tab daily for 3 days, 1/2 tab daily for 2 days PREDNISONE 06340020086 No Longer Active Brii Larson APRN Active PREDNISONE 20 MG ORAL TABLET 1 tablet twice daily for 2 days, then 1 tablet once daily for 2 days PREDNISONE 02665077780 No Longer Active Brii Larson APRN Active PROMETHAZINE HCL 12.5 MG ORAL TABLET 1 tablet by mouth every 6 hours as needed for nausea/vomiting PROMETHAZINE HCL 41722071250 No L onger Active Jono Gagnon DO Active CITRATE OF MAGNESIA ORAL SOLUTION 1 bottle today for constipatio n MAGNESIUM CITRATE 45685785452 No Longer Active Jono Gagnon DO Active ZOFRAN 4 MG ORAL TABLET 1 TAB PO Q 6 HRS PRN NAUSEA 07/10/15 ONDANSETRON HCL 34597185639 No Longer Active Brii Larson APRN A ctive LOMOTIL 2.5-0.025 MG ORAL TABLET 1 to 2 four times a day as needed for diarrhea DIPHENOXYLATE-ATROPINE 17245423813 No Longer Active January Larson APRN Active AMOXICILLIN 500 MG ORAL TABLET 2 tabs twice a day for 10 days 20 07/09/11 AMOXICILLIN 05810653181 No Longer Active Brii Larson APRN Active CYCLOBENZAPRINE HCL 10 MG ORAL TABLET 1/2 - 1 tablet b y mouth three times daily as needed for muscle spasm/pain CYCLOBENZAPRINE HCL 02688131443 No Longer Active Arie Casper MD Active LOMOTIL 2.5-0.025 MG ORAL TABLET 1 to 2 four times a day as needed for diarrhea DIPHENOXYLATE-ATROPINE 50444823129 No Longer Active D freddy Casper MD Active MACROBID 100 MG ORAL CAPSULE 1 cap by mouth twice daily NITROFURANTOIN MONOHYD MACRO 00809942437 No Longer Active Arie Casper MD Active ZYRTEC ALLERGY 10 MG ORAL CAPSULE 1 po qd CE TIRIZINE HCL 33700498396 No Longer Active Arie Casper MD Active AZITHROMYCIN 250 MG ORAL TABLET 2 po qd x 1 day, then 1 po q d x 4 days AZITHROMYCIN 91308342013 No Longer Active Jessica salgado AUTOMATION/CONTROLS MANAGER Active PREDNISONE 20 MG ORAL TABLET 2 tabs daily for 3 days, 1 tab daily for 3 days, 1/2 tab daily for 2 days PREDNISONE 47020353239 No Longer Active Jessica Heaton AUTOMATION/CONTROLS MANAGER Active PROMETHAZINE HCL 25 MG ORAL TABLET 1 four times a day as nee ded for vomiting PROMETHAZINE HCL 83377126120 No Longer Active Myrna Roberto MD Active BACTRIM DS 800-160 MG ORAL TABLET 1 twice a day 05/30 SULFAMETHOXAZOLE-TRIMETHOPRIM 31546905376 No Longer Active Myrna Roberto MD Active VICKS DAYQUIL SEVERE COLD/FLU TABLET 1 tab every 6 hours prn 201 02/22/17 [id number] TABS 83675770344 No Longer Active Chris Roberto MD Active GUAIFENESIN-CODEINE 100-10 MG/5ML ORAL SYRUP 2 tsp every 6 hours prn GUAIFENESIN-CODEINE 14094112793 No Longer Active Myrna Roberto MD Active NAPROXEN 500 MG ORAL TABLET one tab PO BID NAPR OXEN 15150720830 No Longer Active Myrna Roberto MD Active AUGMENTIN 875-125 MG ORAL TABLET 1 tab by mouth twice daily with food AMOXICILLIN-POT CLAVULANATE 00932602581 No Longer Act zaid Liliana Estrada MD PhD Active AMOXICILLIN 500 MG ORAL CAPSULE 1 tab by mouth 3 times daily 201 02/21/05 AMOXICILLIN 03166807990 No Longer Active Liliana Estrada MD PhD Active TESSALON PERLES 100 MG ORAL CAPSULE 1 tablet by mouth 3 times da cory BENZONATATE 57884223031 No Longer Active Liliana Estrada MD PhD Active FLAGYL 500 MG ORAL TABLET 1 tablet by mouth two times daily 2014 METRONIDAZOLE 83955961604 No Longer Active Nilam Weber Ac tive ZITHROMAX 250 MG ORAL TABLET 2 po today, then 1 po q days 2-5 20 06/08/16 AZITHROMYCIN 10218547442 No Longer Active Arie Casper MD Active VITAMINS 0.8 MG ORAL TABLET take 1 tab po qday [id number] 60813259934 No Longer Active Arie Casper MD Active IBUPROFEN 800 MG ORAL TABLET take one po Q 8 hours 201 02/01/16 IBUPROFEN 76146142647 No Longer Active Arie Casper MD Acti ve [facility] TUSSIN COUGH/COLD CF 5-10-100 MG/5ML ORAL LIQUID 2 teasp oons every 4 hours [id number] 08371221311 No Longer Active Blaine Casper MD Active COMTREX COLD/COUGH DAY/NITE MS 5-2-10-325 MG ORAL 2 caps deja ry 4 hours [id number] 38123882176 No Longer Active Landon Casper MD Active CHLORASEPTIC MAX SORE THROAT 15-10 MG MOUTH/THROAT LOZENGE 1 every 2 hours prn BENZOCAINE-MENTHOL 32460535084 No Longer Active Arie Casper MD Active PREDNISONE 20 MG ORAL TABLET 2 tabs daily for 3 days, 1 tab daily for 3 days, 1/2 tab daily for 2 days PREDNISONE 31483294997 No Longer Active Jose Zhong MD Active AZITHROMYCIN 250 MG ORAL TABLET 2 po qd x 1 day, then 1 po q d x 4 days AZITHROMYCIN 29791669209 No Longer Active Jose Mcwilliams MD Active ZOFRAN ODT 4 MG ORAL TABLET DISINTEGRATING 1 po q6hr PRN Nausea ONDANSETRON 32649481583 No Longer Active Rich Rosales MD Active ZOFRAN 4 MG ORAL TABLET 1 tablet every 4 hours ONDANSETRON HCL 45289521055 No Longer Active Rich Rosales MD Activ e MUCINEX 600 MG ORAL TABLET EXTENDED RELEASE 12 HOUR Ta ke 1-2 tablets every 12 hours GUAIFENESIN 65389999469 No Longer Active Rich Rosales MD Active BACTRIM 400-80 MG ORAL TABLET take one po BID SULFAMETHOXAZOLE-TRIMETHOPRIM 33921166378 No Longer Active Abelardo HERNANDEZ Active AZITHROMYCIN 500 MG ORAL TABLET 1 PO q day x 6 days 20 03/02/23 AZITHROMYCIN 21691294539 No Longer Active Tin HERNANDEZ Activ e ZITHROMAX 250 MG ORAL TABLET 2 po today, then 1 po q days 2-5 20 10/03/08 AZITHROMYCIN 53473262729 No Longer Active Arie Casper MD Active ZITHROMAX 250 MG ORAL TABLET 2 po today, then 1 po q days 2-5 20 09/23/25 AZITHROMYCIN 86990830980 No Longer Active Arie Casper MD Active AMOXICILLIN 500 MG ORAL CAPSULE 1 tab by mouth 3 times daily 201 11/24/09 AMOXICILLIN 65152613806 No Longer Active Arie Casper MD Active BACTRIM DS 800-160 MG ORAL TABLET 1 tab by mouth twice daily 201 11/03/14 TRIMETHOPRIM-SULFAMETHOXAZOLE 04491780125 No Longer Active Fozai Casper MD Active AMOXICILLIN 500 MG ORAL TABLET take 1 tab po TID 08/05 AMOXICILLIN 92182925119 No Longer Active Arie Casper MD Acti ve BACTRIM DS 800-160 MG ORAL TABLET 1 tab by mouth twice daily 201 11/03/14 BACTRIM DS 800-160 MG ORAL TABLET 595872 TRIMETHOPRIM-SULFAMETHOXAZOLE Inactive MUCINEX 600 MG ORAL TABLET EXTENDED RELEASE 12 HOUR Ta ke 1-2 tablets every 12 hours MUCINEX 600 MG ORAL TABLET EXTENDED RELEA SE 12 HOUR GUAIFENESIN Inactive ZOFRAN 4 MG ORAL TABLET 1 tablet every 4 hours ZOFRAN 4 MG ORAL TABLET 060255 ONDANSETRON HCL Inactive ZOFRAN ODT 4 MG ORAL TABLET DISINTEGRATING 1 po q6hr PRN Nausea ZOFRAN ODT 4 MG ORAL TABLET DISINTEGRATING 909832 ONDAN SETRON Inactive CHLORASEPTIC MAX SORE THROAT 15-10 MG MOUTH/THROAT LOZENGE 1 every 2 hours prn CHLORASEPTIC MAX SORE THROAT 15-10 MG MOUTH/THROAT LOZENGE BENZOCAINE-MENTHOL Inactive COMTREX COLD/COUGH DAY/NITE MS 5-2-10-325 MG ORAL 2 caps deja ry 4 hours COMTREX COLD/COUGH DAY/NITE MS 5-2-10-325 MG ORA L [id number] Inactive [facility] TUSSIN COUGH/COLD CF 5-10-100 MG/5ML ORAL LIQUID 2 teasp oons every 4 hours [facility] TUSSIN COUGH/COLD CF 5-10-100 MG/5ML ORAL LI QUID [id number] Inactive IBUPROFEN 800 MG ORAL TABLET take one po Q 8 hours 201 02/01/16 IBUPROFEN 800 MG ORAL TABLET IBUPROFEN Inactive VITAMINS 0.8 MG ORAL TABLET take 1 tab po qday VITAMINS 0.8 MG ORAL TABLET [id number] E-FA Inactive TESSALON PERLES 100 MG ORAL CAPSULE 1 tablet by mouth 3 times da cory TESSALON PERLES 100 MG ORAL CAPSULE 240866 BENZONATATE Inactive AMOXICILLIN 500 MG ORAL CAPSULE 1 tab by mouth 3 times daily 201 02/21/05 AMOXICILLIN 500 MG ORAL CAPSULE 002437 AMOXICILLIN Inactive GUAIFENESIN-CODEINE 100-10 MG/5ML ORAL SYRUP 2 tsp every 6 hours prn GUAIFENESIN-CODEINE 100-10 MG/5ML ORAL SYRUP 566995 GUAIFENESIN-CODEINE Inactive VICKS DAYQUIL SEVERE COLD/FLU TABLET 1 tab every 6 hours prn 201 02/22/17 VICKS DAYQUIL SEVERE COLD/FLU TABLET PHENYLEPHRI ZP-JV-[id number]-APAP TABS Inactive BACTRIM DS 800-160 MG ORAL TABLET 1 twice a day 05/30 BACTRIM DS 800-160 MG ORAL TABLET 106447 SULFAMETHOXAZOLE-TRIMETHOPRIM Inactiv e PROMETHAZINE HCL 25 MG ORAL TABLET 1 four times a day as nee ded for vomiting PROMETHAZINE HCL 25 MG ORAL TABLET 281066 PROMETHAZINE HCL Inactive ZYRTEC ALLERGY 10 MG ORAL CAPSULE 1 po qd ZYRTEC ALLERGY 10 MG ORAL CAPSULE CETIRIZINE HCL Inactive MACROBID 100 MG ORAL CAPSULE 1 cap by mouth twice daily MACROBID 100 MG ORAL CAPSULE 9611555 NITROFURANTOIN MONOHYD MACRO In active LOMOTIL 2.5-0.025 MG ORAL TABLET 1 to 2 four times a day as needed for diarrhea LOMOTIL 2.5-0.025 MG ORAL TABLET 5079591 DIPHENOXYLATE-ATROPINE Inactive CYCLOBENZAPRINE HCL 10 MG ORAL TABLET 1/2 - 1 tablet b y mouth three times daily as needed for muscle spasm/pain CYCLOBEN ZAPRINE HCL 10 MG ORAL TABLET 003653 CYCLOBENZAPRINE HCL Inactive AMOXICILLIN 500 MG ORAL TABLET 2 tabs twice a day for 10 days 20 07/09/11 AMOXICILLIN 500 MG ORAL TABLET 647392 AMOXICILLIN I nactive LOMOTIL 2.5-0.025 MG ORAL TABLET 1 to 2 four times a day as needed for diarrhea LOMOTIL 2.5-0.025 MG ORAL TABLET 8460675 DIPHENOXYLATE-ATROPINE Inactive ZOFRAN 4 MG ORAL TABLET 1 TAB PO Q 6 HRS PRN NAUSEA 20 07/10/15 ZOFRAN 4 MG ORAL TABLET 994522 ONDANSETRON HCL Inactive CITRATE OF MAGNESIA ORAL SOLUTION 1 bottle today for constipatio n CITRATE OF MAGNESIA ORAL SOLUTION 6488180 MAGNESIUM CITR ATE Inactive PROMETHAZINE HCL 12.5 MG ORAL TABLET 1 tablet by mouth every 6 hours as needed for nausea/vomiting PROMETHAZINE HCL 12.5 MG ORA L TABLET 364117 PROMETHAZINE HCL Inactive PREDNISONE 20 MG ORAL TABLET 1 tablet twice daily for 2 days, then 1 tablet once daily for 2 days PREDNISONE 20 MG ORAL TABLET 516194 PREDNISONE Inactive ALPRAZOLAM 0.25 MG ORAL TABLET 1 tablet by mouth every 8 hours as needed for stress ALPRAZOLAM 0.25 MG ORAL TABLET 690118 ALPRA ZOLAM Inactive FLONASE 50 MCG/ACT NASAL SUSPENSION 1 spray each nostr il twice daily for allergies and runny nose until gone FLON ASE 50 MCG/ACT NASAL SUSPENSION 2615355 FLUTICASONE PROPIONATE Inactive PREDNISONE 20 MG ORAL TABLET 1 tablet daily for airway inflammat ion PREDNISONE 20 MG ORAL TABLET 742301 PREDNISONE [place] ctive NAPROXEN 500 MG ORAL TABLET Take 1 tab BID NAPROXEN 500 MG ORAL TABLET 270122 NAPROXEN Inactive ZOLOFT 50 MG ORAL TABLET 1 tablet by mouth daily 12/08 ZOLOFT 50 MG ORAL TABLET 616590 SERTRALINE HCL Inactive LOMOTIL 2.5-0.025 MG ORAL TABLET 1 tab po four times a day as needed for diarrhea LOMOTIL 2.5-0.025 MG ORAL TABLET 9181014 DIPHENOXYLATE-ATROPINE Inactive CETIRIZINE HCL 10 MG ORAL TABLET 1 po qd PRN Allergies CETIRIZINE HCL 10 MG ORAL TABLET 6337608 CETIRIZINE HCL Inactiv e TUSSIONEX PENNKINETIC ER 10-8 MG/5ML ORAL SUSPENSION E XTENDED RELEASE 5ml po q12hr PRN Cough TUSSIONEX PENNKINETI C ER 10-8 MG/5ML ORAL SUSPENSION EXTENDED RELEASE HYDROCOD POLST-CHLORPHEN POLST I nactive NEXPLANON IMPLANT right arm subcutaneously NEXPLANON IMPLANT ETONOGESTREL IMPL Inactive PROTONIX 40 MG ORAL TABLET DELAYED RELEASE 1 po q a.m. PROTONIX 40 MG ORAL TABLET DELAYED RELEASE 051520 PANTOPRAZOLE SODI UM Inactive AMOXICILLIN 500 MG ORAL TABLET take 1 tab po TID 08/05 AMOXICILLIN 500 MG ORAL TABLET 560647 AMOXICILLIN Inactive AMOXICILLIN 500 MG ORAL CAPSULE 1 tab by mouth 3 times daily 201 11/24/09 AMOXICILLIN 500 MG ORAL CAPSULE 448711 AMOXICILLIN Inactive ZITHROMAX 250 MG ORAL TABLET 2 po today, then 1 po q days 2-5 20 09/23/25 ZITHROMAX 250 MG ORAL TABLET 136793 AZITHROMYCIN [place] ctive ZITHROMAX 250 MG ORAL TABLET 2 po today, then 1 po q days 2-5 20 10/03/08 ZITHROMAX 250 MG ORAL TABLET 236404 AZITHROMYCIN [place] ctive AZITHROMYCIN 500 MG ORAL TABLET 1 PO q day x 6 days 20 03/02/23 AZITHROMYCIN 500 MG ORAL TABLET 1529764 AZITHROMYCIN Inactive BACTRIM 400-80 MG ORAL TABLET take one po BID BACTRIM 400- 80 MG ORAL TABLET 684742 SULFAMETHOXAZOLE-TRIMETHOPRIM Inactive AZITHROMYCIN 250 MG ORAL TABLET 2 po qd x 1 day, then 1 po q d x 4 days AZITHROMYCIN 250 MG ORAL TABLET 367224 AZITHROMY ALLISON Inactive PREDNISONE 20 MG ORAL TABLET 2 tabs daily for 3 days, 1 tab daily for 3 days, 1/2 tab daily for 2 days PREDNISONE 20 MG ORAL T ABLET 437568 PREDNISONE Inactive ZITHROMAX 250 MG ORAL TABLET 2 po today, then 1 po q days 2-5 20 06/08/16 ZITHROMAX 250 MG ORAL TABLET 072094 AZITHROMYCIN [place] ctive FLAGYL 500 MG ORAL TABLET 1 tablet by mouth two times daily 2014 FLAGYL 500 MG ORAL TABLET 588951 METRONIDAZOLE Inacti ve AUGMENTIN 875-125 MG ORAL TABLET 1 tab by mouth twice daily with food AUGMENTIN 875-125 MG ORAL TABLET 618708 AMOXICIL ELSA-POT CLAVULANATE Inactive NAPROXEN 500 MG ORAL TABLET one tab PO BID NAPROXEN 500 MG ORAL TABLET 132714 NAPROXEN Inactive PREDNISONE 20 MG ORAL TABLET 2 tabs daily for 3 days, 1 tab daily for 3 days, 1/2 tab daily for 2 days PREDNISONE 20 MG ORAL T ABLET 765607 PREDNISONE Inactive AZITHROMYCIN 250 MG ORAL TABLET 2 po qd x 1 day, then 1 po q d x 4 days AZITHROMYCIN 250 MG ORAL TABLET 866395 AZITHROMY ALLISON Inactive PREDNISONE 20 MG ORAL TABLET 2 tabs daily for 3 days, 1 tab daily for 3 days, 1/2 tab daily for 2 days PREDNISONE 20 MG ORAL T ABLET 650905 PREDNISONE Inactive ZITHROMAX Z-EMIL 250 MG ORAL TABLET 2 today, then 1 daily for 4 d ays ZITHROMAX Z-EMIL 250 MG ORAL TABLET 362919 AZITHROMYCIN Inactive CEFDINIR 300 MG ORAL CAPSULE 1 po BID x 10 days 12/18 CEFDINIR 300 MG ORAL CAPSULE 658861 CEFDINIR Inactive CEFDINIR 300 MG ORAL CAPSULE 1 po BID x 10 days CEFDINIR 300 MG ORAL CAPSULE 955138 CEFDINIR Inactive PREDNISONE 20 MG ORAL TABLET 2 tabs daily for 3 days, 1 tab daily for 3 days, 1/2 tab daily for 2 days PREDNISONE 20 MG ORAL T ABLET 401087 PREDNISONE Inactive BACTRIM DS 800-160 MG ORAL TABLET 1 tab by mouth twice daily 201 05/02/30 BACTRIM DS 800-160 MG ORAL TABLET 765395 TRIMETHOPRIM-SULFAMETHOXAZOLE Inactive Advance Directives Directive Description Start [...] 263 10^3/MM^3 10*3/mm3 142-424 Lab Report: Chlamydia/GC APTIMA/38054 - Lab chlamydia DNA probe NOT DETECTED NOT DETECTED Lab Report: Chlamydia/GC APTIMA/62943 - Microbiology Neisseria gonorrhoeae DNA probe NOT [...] 5.0-8.5 Encounters Code Encounter Date Provider Facility CPT-56085 Level 3 Est. Patient 11:35:15 FULL CHARGE BOOKKEEPER Arie mcqueen MD [facility] CPT-49598 Level 3 Est. Patient 15:40:28 CDT Steve [facility] CPT-17559 Level 3 Est. Patient 16:40:36 CDT Arie mcqueen MD [facility] CPT-72954 Level 4 Est. Patient 15:29:22 FULL CHARGE BOOKKEEPER Arie mcqueen MD [facility] CPT-63625 Level 3 Est. Patient 15:18:16 FULL CHARGE BOOKKEEPER Jono black DO [facility] CPT-54723 Level 4 Est. Patient 12:08:40 FULL CHARGE BOOKKEEPER Steve [facility] CPT-93250 Level 3 Est. Patient 09:24:42 CDT Steve [facility] CPT-07937 Level 3 Est. Patient 09:12:56 CDT Arie mcqueen MD [facility] CPT-81959 Level 3 Est. Patient 16:40:54 CDT Jose Zhong MD [facility] CPT-13248 Level 2 Est. Patient 13:01:13 CDT Brii Sylwia PAREKHN [facility] CPT-02075 Level 3 Est. Patient 11:55:30 FULL CHARGE BOOKKEEPER Jono black DO [facility] CPT-98614 Level 3 Est. Patient 09:52:36 FULL CHARGE BOOKKEEPER Brii Sylwia PAREKHN [facility] CPT-82507 Level 3 Est. Patient 16:25:33 FULL CHARGE BOOKKEEPER Rich Rosales MD [facility]-36650 Level 3 Est. Patient 20:33:55 CDT Arie mcqueen MD [facility] CPT-06273 Level 3 Est. Patient 14:18:20 CDT Rich Rosales MD [facility] CPT-59216 Level 4 Est. Patient 09:34:31 CDT Arie mcqueen MD [facility] CPT-74279 Level 3 Est. Patient 09:08:55 FULL CHARGE BOOKKEEPER Liliana vincent MD PhD [facility]-79305 Level 3 Est. Patient 16:44:07 FULL CHARGE BOOKKEEPER Arie mcqueen MD [facility] CPT-03524 Level 3 Est. Patient 10:44:27 CDT Arie mcqueen MD [facility] CPT-52715 Level 3 Est. Patient 08:55:41 CDT Jose Zhong MD [facility] CPT-51791 Level 3 Est. Patient 18:37:31 CDT Liliana vincent MD PhD [facility] CPT-27532 Level 3 Est. Patient 14:28:23 CDT Abelardo HERNANDEZ [facility] CPT-64619 Level 3 Est. Patient 15:18:13 FULL CHARGE BOOKKEEPER Arie mcqueen MD [facility] CPT-79751 Level 3 Est. Patient 10:11:29 FULL CHARGE BOOKKEEPER Arie mcqueen MD [facility] CPT-15870 Level 3 Est. Patient 10:55:57 FULL CHARGE BOOKKEEPER Jono black DO [facility] CPT-34607 Level 3 Est. Patient 17:29:05 CDT Arie mcqueen MD [facility] Procedures Code Procedure Name Date Entry Date Standard Desc ription CPT-97396 Nexplanon Removal 15:40:28 CDT CPT-87129 Sono transvag pelvis non OB uterus ovari es cervix - XRAY USE ONLY 08:58:14 FULL CHARGE BOOKKEEPER CPT-44576 UA w micro - LAB USE ONLY 16:04:56 FULL CHARGE BOOKKEEPER 2015 CPT-53457 Wet Prep/GEN - LAB USE ONLY 16:04:56 FULL CHARGE BOOKKEEPER 20 08/10/29 CPT-74080 First Vx - Ix admin via ID I M or jet injects without counseling by physician 16:57:10 CDT CPT-85465 Fluzone Preservative Free Intramuscular Suspension 16:57:10 CDT CPT-J0696 Rocephin 1000 mg (Ceftriaxone) 11:49:23 CDT CPT-J1040 Depo Medrol 80 mg (Methyl Prednisolone A cetate) 11:49:23 CDT CPT-J1100 Decadron 8mg (Dexamethasone) 11:49:23 CDT 2 CPT-12233 Abx/Therapy Injection 11:49:23 CDT CPT-24547 Abx/Therapy Injection 11:49:23 CDT CPT-15968 Abd compl w upright 09:07:26 FULL CHARGE BOOKKEEPER CPT-68574 Ear Wash 16:12:47 FULL CHARGE BOOKKEEPER CPT-OV Office Visit 11:12:01 CDT CPT-OV Office Visit 15:30:23 CDT CPT-41868 Sono pelvis non OB uterus ovaries cervix 15:50:44 CDT CPT-02058 Hand comp min 3V 16:42:32 CDT CPT-31751 Abd compl w upright 12:17:01 CDT CPT-93254 Nexplanon Placement 15:07:39 FULL CHARGE BOOKKEEPER CPT-54366 Removal of IUD 15:07:39 FULL CHARGE BOOKKEEPER CPT-64903 TB Tubersol 12:09:32 CDT CPT-28732 TB Tubersol 13:55:43 CDT
--- OUTSIDE RECORDS SUMMARY | 2020-03-03 07:43 | XMS REPORT | Clinical Summary ---
Author Author Admin, Diamante Marcelo Organization [facility] Address Unknown Phone Unavailable Allergies, Adverse Reactions, [...] Acute pharyngitis Gastroenteritis, acute 558.9 Active Rich aebbe MD Other and unspecified noninfectious gastroenteritis and [...] TAB one tab PO BID NAPROXEN 332 [id number] Active Myrna Roberto MD Active LOMOTIL 2.5-0.025 MG TABS 1 to 2 four times a day as needed for diarrhea DIPHENOXYLATE-ATROPINE 17584143055 Active Rich mcintosh MD Active PROMETHAZINE HCL 25 MG TABS 1 four times a day as needed for vomiting PROMETHAZINE HCL 67578372180 Active Rich Rosales MD Active BACTRIM DS 800-160 MG TABS 1 twice a day SULFAMETHOXAZOLE-TRIMETHOPRIM 06017699300 Active Rich Rosales MD Active AUGMENTIN 875-125 MG TAB 1 tab by mouth twice daily with food 20 08/12/16 AMOXICILLIN-POT CLAVULANATE 23122495234 No Longer Active Liliana Estrada MD PhD Active CYCLOBENZAPRINE HCL 10 MG TABS 1/2 - 1 tablet by mouth three times daily as needed for muscle spasm/pain CYCLOBENZAPRINE HCL 81290 235742 Active Liliana Estrada MD PhD Active GUAIFENESIN-CODEINE 100-10 MG/5ML ORAL SYRP 2 tsp every 6 hours prn GUAIFENESIN-CODEINE 21103119583 Active Liliana Estrada MD PhD Active VICKS DAYQUIL SEVERE COLD/FLU TABS 1 tab every 6 hours prn [id number] TABS 95515559350 Active Liliana Estrada MD PhD Active AMOXICILLIN 500 MG CAP 1 tab by mouth 3 times daily 08/12/16 AMOXICILLIN 88214417214 No Longer Active Liliana Estrada MD PhD Acti ve TESSALON PERLES 100 MG CAP 1 tablet by mouth 3 times daily 11/01 BENZONATATE 77986540769 No Longer Active Liliana Estrada MD PhD Active FLAGYL 500 MG TAB 1 tablet by mouth two times daily 07/11/29 METRONIDAZOLE 68571002926 No Longer Active Nilam Weber Active ZITHROMAX 250 MG TAB 2 po today, then 1 po q days 2-5 AZITHROMYCIN 04454267550 No Longer Active Arie Casper MD Acti ve VITAMINS 0.8 MG TABS take 1 tab po qday 08/08 [id number] 82121633242 No Longer Active Arie Casper MD Active IBUPROFEN 800 MG TABS take one po Q 8 hours IBU PROFEN 02507976245 No Longer Active Arie Casper MD Active [facility] TUSSIN COUGH/COLD CF 5-10-100 MG/5ML LIQD 2 teaspoons ev eliud 4 hours [id number] 51951846199 No Longer Active lBaine Casper MD Active COMTREX COLD/COUGH DAY/NITE MS 5-2-10-325 MG MISC 2 caps deja ry 4 hours [id number]-APAP 20461511225 No Longer Active Da aleksandra Casper MD Active CHLORASEPTIC MAX SORE THROAT 15-10 MG LOZG 1 every 2 hours prn 2 BENZOCAINE-MENTHOL 36268648616 No Longer Active Arie Marcelo Active PREDNISONE 20 MG TAB 2 tabs daily for 3 days, 1 t ab daily for 3 days, 1/2 tab daily for 2 days PREDNISONE 83085487475 No Longer Active Jose Zhong MD Active AZITHROMYCIN 250 MG TABS 2 po qd x 1 day, then 1 po qd x 4 days AZITHROMYCIN 37937333278 No Longer Active Jose Zhong MD Active ZOFRAN ODT 4 MG TBDP 1 po q6hr PRN Nausea ONDAN SETRON 44927964232 No Longer Active Rich Rosales MD Active ZOFRAN 4 MG TABS 1 tablet every 4 hours ONDANSE JERRELL HCL 24200708234 No Longer Active Rich Rosales MD Active MUCINEX 600 MG [id number] Take 1-2 tablets every 12 hours GUAIFENESIN 94772725050 No Longer Active Rich Rosales MD Activ e BACTRIM 400-80 MG TABS take one po BID SULFAMETHOXAZOLE-TRIMETHOPRIM 49295763934 No Longer Active Abelardo HERNANDEZ Active AZITHROMYCIN 500 MG TABS 1 PO q day x 6 days AZ ITHROMYCIN 33447774767 No Longer Active Tin HERNANDEZ Active ZITHROMAX 250 MG TAB 2 po today, then 1 po q days 2-5 AZITHROMYCIN 84821365263 No Longer Active Arie Casper MD Acti ve ZITHROMAX 250 MG TAB 2 po today, then 1 po q days 2-5 AZITHROMYCIN 12852709316 No Longer Active Arie Casper MD Acti ve AMOXICILLIN 500 MG CAP 1 tab by mouth 3 times daily 09/23/20 AMOXICILLIN 08508666347 No Longer Active Arie Casper MD Acti ve BACTRIM DS 800-160 MG TAB 1 tab by mouth twice daily 2 TRIMETHOPRIM-SULFAMETHOXAZOLE 72298203277 No Longer Active Arie Casper MD Active AMOXICILLIN 500 MG TABS take 1 tab po TID AMOXI CILLIN 83122439561 No Longer Active Arie Casper MD Active BACTRIM DS 800-160 MG TAB 1 tab by mouth twice daily 2 BACTRIM DS 800-160 MG TAB TRIMETHOPRIM-SULFAMETHOXAZOLE Inac tive MUCINEX 600 MG [id number] Take 1-2 tablets every 12 hours MUCINEX 600 MG [id number] GUAIFENESIN Inactive ZOFRAN 4 MG TABS 1 tablet every 4 hours ZOFRAN 4 MG TABS 876434 ONDANSETRON HCL Inactive ZOFRAN ODT 4 MG TBDP 1 po q6hr PRN Nausea ZOFRAN ODT 4 MG TBDP 528381 ONDANSETRON Inactive CHLORASEPTIC MAX SORE THROAT 15-10 MG LOZG 1 every 2 hours prn 2 /04/30 CHLORASEPTIC MAX SORE THROAT 15-10 MG LOZG BENZO ARINA-MENTHOL Inactive COMTREX COLD/COUGH DAY/NITE MS 5-2-10-325 MG MISC 2 caps deja ry 4 hours COMTREX COLD/COUGH DAY/NITE MS 5-2-10-325 MG MIS C [id number] Inactive [facility] TUSSIN COUGH/COLD CF 5-10-100 MG/5ML LIQD 2 teaspoons ev eliud 4 hours [facility] TUSSIN COUGH/COLD CF 5-10-100 MG/5ML LIQD [id number] Inactive IBUPROFEN 800 MG TABS take one po Q 8 hours IBUPROFEN 800 MG TABS 767803 IBUPROFEN Inactive VITAMINS 0.8 MG TABS take 1 tab po qday 08/08 VITAMINS 0.8 MG TABS [id number] Inactive TESSALON PERLES 100 MG CAP 1 tablet by mouth 3 times daily 11/01 TESSALON PERLES 100 MG CAP 718593 BENZONATATE Inact zaid AMOXICILLIN 500 MG CAP 1 tab by mouth 3 times daily 08/12/16 AMOXICILLIN 500 MG CAP 526163 AMOXICILLIN Inactive AMOXICILLIN 500 MG TABS take 1 tab po TID AMOXICILLIN 500 MG TABS 042272 AMOXICILLIN Inactive AMOXICILLIN 500 MG CAP 1 tab by mouth 3 times daily 09/23/20 AMOXICILLIN 500 MG CAP 657083 AMOXICILLIN Inactive ZITHROMAX 250 MG TAB 2 po today, then 1 po q days 2-5 ZITHROMAX 250 MG TAB 2202644 AZITHROMYCIN Inactive ZITHROMAX 250 MG TAB 2 po today, then 1 po q days 2-5 ZITHROMAX 250 MG TAB 6595428 AZITHROMYCIN Inactive AZITHROMYCIN 500 MG TABS 1 PO q day x 6 days 3 AZITHROMYCIN 500 MG TABS 8528658 AZITHROMYCIN Inactive BACTRIM 400-80 MG TABS take one po BID BA CTRIM 400-80 MG TABS 968980 SULFAMETHOXAZOLE-TRIMETHOPRIM Inactive AZITHROMYCIN 250 MG TABS 2 po qd x 1 day, then 1 po qd x 4 days AZITHROMYCIN 250 MG TABS 1773216 AZITHROMYCIN Inactiv e PREDNISONE 20 MG TAB 2 tabs daily for 3 days, 1 t ab daily for 3 days, 1/2 tab daily for 2 days PREDNISONE 20 MG TAB 148998 PREDNISON E Inactive ZITHROMAX 250 MG TAB 2 po today, then 1 po q days 2-5 ZITHROMAX 250 MG TAB 1636163 AZITHROMYCIN Inactive FLAGYL 500 MG TAB 1 tablet by mouth two times daily 07/11/29 FLAGYL 500 MG TAB 079994 METRONIDAZOLE Inactive AUGMENTIN 875-125 MG TAB 1 tab by mouth twice daily with food 20 08/12/16 AUGMENTIN 875-125 MG TAB 440588 AMOXICILLIN-POT CLAVULA ANGELO Inactive Advance Directives Directive [...] 214 10^3/MM^3 10*3/mm3 142-424 Lab Report: Chlamydia/GC APTIMA/[id number] - Lab chlamydia DNA probe NOT DETECTED NOT DETECTED Lab Report: Chlamydia/GC APTIMA/[id number] - Microbiology Neisseria gonorrhoeae DNA probe NOT [...] 5.0-8.5 Encounters Code Encounter Date Provider Facility CPT-89921 Level 3 Est. Patient 14:18:20 CDT Rich Rosales MD [facility] CPT-92239 Level 4 Est. Patient 09:34:31 CDT Arie mcqueen MD [facility] CPT-95337 Level 3 Est. Patient 09:08:55 INVESTMENT ACCOUNTING CLERK Liliana vincent MD PhD [facility] CPT-61697 Level 3 Est. Patient 16:44:07 INVESTMENT ACCOUNTING CLERK Arie mcqueen MD [facility] CPT-05549 Level 3 Est. Patient 10:44:27 CDT Arie mcqueen MD [facility] CPT-12942 Level 3 Est. Patient 08:55:41 CDT Jose Zhong MD [facility] CPT-41776 Level 3 Est. Patient 18:37:31 CDT Liliana vincent MD PhD [facility] CPT-62766 Level 3 Est. Patient 14:28:23 CDT Abelardo HERNANDEZ [facility] CPT-89340 Level 3 Est. Patient 15:18:13 INVESTMENT ACCOUNTING CLERK Arie mcqueen MD [facility] CPT-45181 Level 3 Est. Patient 10:11:29 INVESTMENT ACCOUNTING CLERK Arie mcqueen MD [facility] CPT-66993 Level 3 Est. Patient 10:55:57 INVESTMENT ACCOUNTING CLERK Jono black DO [facility] CPT-12308 Level 3 Est. Patient 17:29:05 CDT Arie mcqueen MD [facility] Procedures Code Procedure Name Date Entry Date Standard Desc ription CPT-OV Office Visit 15:30:23 CDT CPT-35320 Sono pelvis non OB uterus ovaries cervix 15:50:44 CDT CPT-48946 Hand comp min 3V 16:42:32 CDT CPT-86603 Abd compl w upright 12:17:01 CDT CPT-07055 Nexplanon Placement 15:07:39 INVESTMENT ACCOUNTING CLERK CPT-69744 Removal of IUD 15:07:39 INVESTMENT ACCOUNTING CLERK CPT-12802 TB Tubersol 12:09:32 CDT CPT-13715 TB Tubersol 13:55:43 CDT
--- OUTSIDE RECORDS SUMMARY | 2020-03-03 07:43 | XMS REPORT | Clinical Summary ---
Author Author Admin, Diamante Marcelo Organization [employer] Address Unknown Phone Unavailable Allergies, Adverse Reactions, [...] of gastrointestinal tract FH DIABETES V18.0 Resolved Joes Zhong MD Family history of diabetes mellitus [...] implantable subdermal contraceptiv e Active Brii Russ [employer] Vaginal bleeding 623.8 Active Arie Casper MD Other specified noninflammatory disorders of vagina Influenza like illness 487.1 Active Jose Mcwilliams MD Influenza with other respiratory manifestations Sinusitis 473.9 Active Jessica Heaton [employer] Unspecified sinusitis (chronic) BREAST CANCER ICD-V16.3 Inactive [...] po q12hr PRN Cough HYDROCOD POLST-CHLORPHEN POLST [id number] Active Arie Casper MD Active GUAIFENESIN DM 400-20 MG ORAL TABLET 1 pill by mouth t wice daily, if needed for cough DEXTROMETHORPHAN-GUAIFENESIN 90339757321 Active Jiborisina Florina CABRERA Active CEFDINIR 300 MG ORAL CAPSULE 1 po BID x 10 days CEFDINIR 23665972572 Active Jillina Franaomi PAREKHN Active CHERATUSSIN AC 100-10 MG/5ML ORAL SYRUP 1 tsp by mouth every 4 hours as needed for cough GUAIFENESIN-CODEINE 54193225940 No Longe r Active Waynellina Florina CABRERA Active TAMIFLU 75 MG ORAL CAPSULE 1 po BID x 5 days 0 OSELTAMIVIR PHOSPHATE 27130393333 No Longer Active Jose Zhong MD Activ e ZITHROMAX Z-EMIL 250 MG ORAL TABLET 2 today, then 1 daily for 4 d ays AZITHROMYCIN 30074789901 No Longer Active Arie Casper MD Active PROTONIX 40 MG ORAL TABLET DELAYED RELEASE 1 po q a.m. PANTOPRAZOLE SODIUM 00896580523 No Longer Active Arie Casper MD Active BACTRIM DS 800-160 MG ORAL TABLET 1 tab by mouth twice daily 201 05/02/30 TRIMETHOPRIM-SULFAMETHOXAZOLE 86094626878 No Longer Active R bianca Crawford Active NEXPLANON IMPLANT right arm subcutaneously ETONOGESTREL IMPL 61969352037 No Longer Active Brii Arell [employer]ER Active TUSSIONEX PENNKINETIC ER 10-8 MG/5ML ORAL SUSPENSION E XTENDED RELEASE 5ml po q12hr PRN Cough HYDROCOD POLST-CHLORPHEN POLST 5 1163955666 No Longer Active Brii Russ [employer] Active CETIRIZINE HCL 10 MG ORAL TABLET 1 po qd PRN Allergies CETIRIZINE HCL 80639065963 No Longer Active Brii Russ [employer]ER Activ e PREDNISONE 20 MG ORAL TABLET 2 tabs daily for 3 days, 1 tab daily for 3 days, 1/2 tab daily for 2 days PREDNISONE 98850210384 No Longer Active Arie Casper MD Active LOMOTIL 2.5-0.025 MG ORAL TABLET 1 tab po four times a day as needed for diarrhea DIPHENOXYLATE-ATROPINE 21617198040 No Lo nger Active Arie Casper MD Active ZOLOFT 50 MG ORAL TABLET 1 tablet by mouth daily 12/08 SERTRALINE HCL 46776081478 No Longer Active Arie Casper MD Ac tive NAPROXEN 500 MG ORAL TABLET Take 1 tab BID NAPR OXEN 74864347441 No Longer Active Arie Casper MD Active CEFDINIR 300 MG ORAL CAPSULE 1 po BID x 10 days CEFDINIR 34524314719 No Longer Active Brii Russ APRN Active PREDNISONE 20 MG ORAL TABLET 1 tablet daily for airway inflammat ion PREDNISONE 72100440553 No Longer Active Brii Russ APRN A ctive CEFDINIR 300 MG ORAL CAPSULE 1 po BID x 10 days CEFDINIR 41963297234 No Longer Active Jono Gagnon DO Active FLONASE 50 MCG/ACT NASAL SUSPENSION 1 spray each nostr il twice daily for allergies and runny nose until gone FLUT ICASONE PROPIONATE 97770491301 No Longer Active Jono Gagnon DO Active ALPRAZOLAM 0.25 MG ORAL TABLET 1 tablet by mouth every 8 hours as needed for stress ALPRAZOLAM 95590041462 No Longer Active Jono Gagnon DO Active ZITHROMAX Z-EMIL 250 MG ORAL TABLET 2 today, then 1 daily for 4 d ays AZITHROMYCIN 89451628592 No Longer Active Arie Casper MD Active PREDNISONE 20 MG ORAL TABLET 2 tabs daily for 3 days, 1 tab daily for 3 days, 1/2 tab daily for 2 days PREDNISONE 67526294731 No Longer Active Brii Arell [employer]ONER Active PREDNISONE 20 MG ORAL TABLET 1 tablet twice daily for 2 days, then 1 tablet once daily for 2 days PREDNISONE 19208758748 No Longer Active Brii Russ APRN Active PROMETHAZINE HCL 12.5 MG ORAL TABLET 1 tablet by mouth every 6 hours as needed for nausea/vomiting PROMETHAZINE HCL 61643313184 No L onger Active Jono Gagnon DO Active CITRATE OF MAGNESIA ORAL SOLUTION 1 bottle today for constipatio n MAGNESIUM CITRATE 42347750922 No Longer Active Jono Gagnon DO Active ZOFRAN 4 MG ORAL TABLET 1 TAB PO Q 6 HRS PRN NAUSEA 07/10/15 ONDANSETRON HCL 17404200788 No Longer Active Brii Russ APRN Acti ve LOMOTIL 2.5-0.025 MG ORAL TABLET 1 to 2 four times a day as needed for diarrhea DIPHENOXYLATE-ATROPINE 68889468640 No Longer Active January Russ APRN Active AMOXICILLIN 500 MG ORAL TABLET 2 tabs twice a day for 10 days 07/09/11 AMOXICILLIN 13734760950 No Longer Active Brii Areboris CABRERA Active CYCLOBENZAPRINE HCL 10 MG ORAL TABLET 1/2 - 1 tablet b y mouth three times daily as needed for muscle spasm/pain CYCLOBENZAPRINE HCL 88619624446 No Longer Active Arie Casper MD Active LOMOTIL 2.5-0.025 MG ORAL TABLET 1 to 2 four times a day as needed for diarrhea DIPHENOXYLATE-ATROPINE 88687249355 No Longer Active D freddy Casper MD Active MACROBID 100 MG ORAL CAPSULE 1 cap by mouth twice daily NITROFURANTOIN MONOHYD MACRO 31234625221 No Longer Active Arie Casper MD Active ZYRTEC ALLERGY 10 MG ORAL CAPSULE 1 po qd CE TIRIZINE HCL 83027033237 No Longer Active Arie Casper MD Active AZITHROMYCIN 250 MG ORAL TABLET 2 po qd x 1 day, then 1 po q d x 4 days AZITHROMYCIN 44381557403 No Longer Active Jillina Fra naomi [employer] Active PREDNISONE 20 MG ORAL TABLET 2 tabs daily for 3 days, 1 tab daily for 3 days, 1/2 tab daily for 2 days PREDNISONE 22716077388 No Longer Active Jillina Fradeepl [employer] Active PROMETHAZINE HCL 25 MG ORAL TABLET 1 four times a day as nee ded for vomiting PROMETHAZINE HCL 92389473568 No Longer Active Myran Roberto MD Active BACTRIM DS 800-160 MG ORAL TABLET 1 twice a day 05/30 SULFAMETHOXAZOLE-TRIMETHOPRIM 84956911167 No Longer Active Myrna Roberto MD Active VICKS DAYQUIL SEVERE COLD/FLU TABLET 1 tab every 6 hours prn 201 02/22/17 [id number] TABS 77987410431 No Longer Active Chris Roberto MD Active GUAIFENESIN-CODEINE 100-10 MG/5ML ORAL SYRUP 2 tsp every 6 hours prn GUAIFENESIN-CODEINE 29844136963 No Longer Active Myrna Roberto MD Active NAPROXEN 500 MG ORAL TABLET one tab PO BID NAPR OXEN 24959494457 No Longer Active Myrna Roberto MD Active AUGMENTIN 875-125 MG ORAL TABLET 1 tab by mouth twice daily with food AMOXICILLIN-POT CLAVULANATE 48156104763 No Longer Act zaid Liliana C Madril MD PhD Active AMOXICILLIN 500 MG ORAL CAPSULE 1 tab by mouth 3 times daily 201 02/21/05 AMOXICILLIN 18048280235 No Longer Active Liliana Estrada MD PhD Active TESSALON PERLES 100 MG ORAL CAPSULE 1 tablet by mouth 3 times da cory BENZONATATE 83537627337 No Longer Active Liliana Estrada MD PhD Active FLAGYL 500 MG ORAL TABLET 1 tablet by mouth two times daily 2014 METRONIDAZOLE 52867242683 No Longer Active Nilamnory Plattkatie Ac tive ZITHROMAX 250 MG ORAL TABLET 2 po today, then 1 po q days 2-5 20 06/08/16 AZITHROMYCIN 80072414299 No Longer Active Arie Casper MD Active VITAMINS 0.8 MG ORAL TABLET take 1 tab po qday [id number] 90171189018 No Longer Active Arie Casper MD Active IBUPROFEN 800 MG ORAL TABLET take one po Q 8 hours 201 02/01/16 IBUPROFEN 41110447313 No Longer Active Arie Casper MD Acti ve [facility] TUSSIN COUGH/COLD CF 5-10-100 MG/5ML ORAL LIQUID 2 teasp oons every 4 hours [id number] 96202291217 No Longer Active Blaine Casper MD Active COMTREX COLD/COUGH DAY/NITE MS 5-2-10-325 MG ORAL 2 caps deja ry 4 hours [id number] 69691136768 No Longer Active Da aleksandra Casper MD Active CHLORASEPTIC MAX SORE THROAT 15-10 MG MOUTH/THROAT LOZENGE 1 every 2 hours prn BENZOCAINE-MENTHOL 42559434661 No Longer Active Arie Casper MD Active PREDNISONE 20 MG ORAL TABLET 2 tabs daily for 3 days, 1 tab daily for 3 days, 1/2 tab daily for 2 days PREDNISONE 30922134415 No Longer Active Jose Zhong MD Active AZITHROMYCIN 250 MG ORAL TABLET 2 po qd x 1 day, then 1 po q d x 4 days AZITHROMYCIN 96113343184 No Longer Active Jose Mcwilliams MD Active ZOFRAN ODT 4 MG ORAL TABLET DISINTEGRATING 1 po q6hr PRN Nausea ONDANSETRON 93698159772 No Longer Active Rich Rosales MD Active ZOFRAN 4 MG ORAL TABLET 1 tablet every 4 hours ONDANSETRON HCL 79393572865 No Longer Active Rihc Rosales MD Activ e MUCINEX 600 MG ORAL TABLET EXTENDED RELEASE 12 HOUR Ta ke 1-2 tablets every 12 hours GUAIFENESIN 41669294951 No Longer Active Rich Rosales MD Active BACTRIM 400-80 MG ORAL TABLET take one po BID SULFAMETHOXAZOLE-TRIMETHOPRIM 85752020049 No Longer Active Abelardo HERNANDEZ Active AZITHROMYCIN 500 MG ORAL TABLET 1 PO q day x 6 days 20 03/02/23 AZITHROMYCIN 03108072668 No Longer Active Tin HERNANDEZ Activ e ZITHROMAX 250 MG ORAL TABLET 2 po today, then 1 po q days 2-5 20 10/03/08 AZITHROMYCIN 67817803468 No Longer Active Arie Casper MD Active ZITHROMAX 250 MG ORAL TABLET 2 po today, then 1 po q days 2-5 20 09/23/25 AZITHROMYCIN 86803431963 No Longer Active Arie Casper MD Active AMOXICILLIN 500 MG ORAL CAPSULE 1 tab by mouth 3 times daily 201 11/24/09 AMOXICILLIN 43881998748 No Longer Active Arie Casper MD Active BACTRIM DS 800-160 MG ORAL TABLET 1 tab by mouth twice daily 201 11/03/14 TRIMETHOPRIM-SULFAMETHOXAZOLE 67486260597 No Longer Active Fozia Casper MD Active AMOXICILLIN 500 MG ORAL TABLET take 1 tab po TID 08/05 AMOXICILLIN 89368179358 No Longer Active Arie Casper MD Acti [...] 4 hours ZOFRAN 4 MG ORAL TABLET 324368 ONDANSETRON HCL Inactive ZOFRAN ODT 4 MG ORAL TABLET DISINTEGRATING 1 po q6hr PRN Nausea ZOFRAN ODT 4 MG ORAL TABLET DISINTEGRATING 048883 ONDAN SETRON Inactive CHLORASEPTIC MAX SORE THROAT 15-10 MG MOUTH/THROAT LOZENGE 1 every 2 hours prn CHLORASEPTIC MAX SORE THROAT 15-10 MG MOUTH/THROAT LOZENGE BENZOCAINE-MENTHOL Inactive COMTREX COLD/COUGH DAY/NITE MS 5-2-10-325 MG ORAL 2 caps deja ry 4 hours COMTREX COLD/COUGH DAY/NITE MS 5-2-10-325 MG ORA L [id number] Inactive [facility] TUSSIN COUGH/COLD CF 5-10-100 MG/5ML ORAL LIQUID 2 teasp oons every 4 hours [facility] TUSSIN COUGH/COLD CF 5-10-100 MG/5ML ORAL LI QUID [id number] Inactive IBUPROFEN 800 MG ORAL TABLET take one po Q 8 hours 201 02/01/16 IBUPROFEN 800 MG ORAL TABLET IBUPROFEN Inactive VITAMINS 0.8 MG ORAL TABLET take 1 tab po qday VITAMINS 0.8 MG ORAL TABLET [id number]-T E-FA Inactive TESSALON PERLES 100 MG ORAL CAPSULE 1 tablet by mouth 3 times da cory TESSALON PERLES 100 MG ORAL CAPSULE 065052 BENZONATATE Inactive AMOXICILLIN 500 MG ORAL CAPSULE 1 tab by mouth 3 times daily 201 02/21/05 AMOXICILLIN 500 MG ORAL CAPSULE 511676 AMOXICILLIN Inactive GUAIFENESIN-CODEINE 100-10 MG/5ML ORAL SYRUP 2 tsp every 6 hours prn GUAIFENESIN-CODEINE 100-10 MG/5ML ORAL SYRUP 807668 GUAIFENESIN-CODEINE Inactive VICKS DAYQUIL SEVERE COLD/FLU TABLET 1 tab every 6 hours prn 201 02/22/17 VICKS DAYQUIL SEVERE COLD/FLU TABLET PHENYLEPHRI [id number]-IL-APAP TABS Inactive BACTRIM DS 800-160 MG ORAL TABLET 1 twice a day 05/30 BACTRIM DS 800-160 MG ORAL TABLET 051652 SULFAMETHOXAZOLE-TRIMETHOPRIM Inactiv e PROMETHAZINE HCL 25 MG ORAL TABLET 1 four times a day as nee ded for vomiting PROMETHAZINE HCL 25 MG ORAL TABLET 150577 PROMETHAZINE HCL Inactive ZYRTEC ALLERGY 10 MG ORAL CAPSULE 1 po qd ZYRTEC ALLERGY 10 MG ORAL CAPSULE CETIRIZINE HCL Inactive MACROBID 100 MG ORAL CAPSULE 1 cap by mouth twice daily MACROBID 100 MG ORAL CAPSULE 4316217 NITROFURANTOIN MONOHYD MACRO In active LOMOTIL 2.5-0.025 MG ORAL TABLET 1 to 2 four times a day as needed for diarrhea LOMOTIL 2.5-0.025 MG ORAL TABLET 7829048 DIPHENOXYLATE-ATROPINE Inactive CYCLOBENZAPRINE HCL 10 MG ORAL TABLET 1/2 - 1 tablet b y mouth three times daily as needed for muscle spasm/pain CYCLOBEN ZAPRINE HCL 10 MG ORAL TABLET 351068 CYCLOBENZAPRINE HCL Inactive AMOXICILLIN 500 MG ORAL TABLET 2 tabs twice a day for 10 days 20 07/09/11 AMOXICILLIN 500 MG ORAL TABLET 444462 AMOXICILLIN I nactive LOMOTIL 2.5-0.025 MG ORAL TABLET 1 to 2 four times a day as needed for diarrhea LOMOTIL 2.5-0.025 MG ORAL TABLET 5020196 DIPHENOXYLATE-ATROPINE Inactive ZOFRAN 4 MG ORAL TABLET 1 TAB PO Q 6 HRS PRN NAUSEA 20 07/10/15 ZOFRAN 4 MG ORAL TABLET 617397 ONDANSETRON HCL Inactive CITRATE OF MAGNESIA ORAL SOLUTION 1 bottle today for constipatio n CITRATE OF MAGNESIA ORAL SOLUTION 8094611 MAGNESIUM CITR ATE Inactive PROMETHAZINE HCL 12.5 MG ORAL TABLET 1 tablet by mouth every 6 hours as needed for nausea/vomiting PROMETHAZINE HCL 12.5 MG ORA L TABLET 266550 PROMETHAZINE HCL Inactive PREDNISONE 20 MG ORAL TABLET 1 tablet twice daily for 2 days, then 1 tablet once daily for 2 days PREDNISONE 20 MG ORAL TABLET 817834 PREDNISONE Inactive ALPRAZOLAM 0.25 MG ORAL TABLET 1 tablet by mouth every 8 hours as needed for stress ALPRAZOLAM 0.25 MG ORAL TABLET 567647 ALPRA ZOLAM Inactive FLONASE 50 MCG/ACT NASAL SUSPENSION 1 spray each nostr il twice daily for allergies and runny nose until gone FLON ASE 50 MCG/ACT NASAL SUSPENSION 9491153 FLUTICASONE PROPIONATE Inactive PREDNISONE 20 MG ORAL TABLET 1 tablet daily for airway inflammat ion PREDNISONE 20 MG ORAL TABLET 810894 PREDNISONE Lapoint ctive NAPROXEN 500 MG ORAL TABLET Take 1 tab BID NAPROXEN 500 MG ORAL TABLET 505058 NAPROXEN Inactive ZOLOFT 50 MG ORAL TABLET 1 tablet by mouth daily 12/08 ZOLOFT 50 MG ORAL TABLET 448292 SERTRALINE HCL Inactive LOMOTIL 2.5-0.025 MG ORAL TABLET 1 tab po four times a day as needed for diarrhea LOMOTIL 2.5-0.025 MG ORAL TABLET 7346789 DIPHENOXYLATE-ATROPINE Inactive CETIRIZINE HCL 10 MG ORAL TABLET 1 po qd PRN Allergies CETIRIZINE HCL 10 MG ORAL TABLET 3202967 CETIRIZINE HCL Inactiv e TUSSIONEX PENNKINETIC ER 10-8 MG/5ML ORAL SUSPENSION E XTENDED RELEASE 5ml po q12hr PRN Cough TUSSIONEX PENNKINETI C ER 10-8 MG/5ML ORAL SUSPENSION EXTENDED RELEASE HYDROCOD POLST-CHLORPHEN POLST I nactive NEXPLANON IMPLANT right arm subcutaneously NEXPLANON IMPLANT ETONOGESTREL IMPL Inactive PROTONIX 40 MG ORAL TABLET DELAYED RELEASE 1 po q a.m. PROTONIX 40 MG ORAL TABLET DELAYED RELEASE 895175 PANTOPRAZOLE SODI UM Inactive CHERATUSSIN AC 100-10 MG/5ML ORAL SYRUP 1 tsp by mouth every 4 hours as needed for cough CHERATUSSIN AC 100-10 MG/5ML ORAL SYRUP 9 34304 GUAIFENESIN-CODEINE Inactive AMOXICILLIN 500 MG ORAL TABLET take 1 tab po TID 08/05 AMOXICILLIN 500 MG ORAL TABLET 116772 AMOXICILLIN Inactive AMOXICILLIN 500 MG ORAL CAPSULE 1 tab by mouth 3 times daily 201 11/24/09 AMOXICILLIN 500 MG ORAL CAPSULE 778716 AMOXICILLIN Inactive ZITHROMAX 250 MG ORAL TABLET 2 po today, then 1 po q days 2-5 20 09/23/25 ZITHROMAX 250 MG ORAL TABLET 286664 AZITHROMYCIN Lapoint ctive ZITHROMAX 250 MG ORAL TABLET 2 po today, then 1 po q days 2-5 20 10/03/08 ZITHROMAX 250 MG ORAL TABLET 730969 AZITHROMYCIN Arlen ctive AZITHROMYCIN 500 MG ORAL TABLET 1 PO q day x 6 days 03/02/23 AZITHROMYCIN 500 MG ORAL TABLET 0208382 AZITHROMYCIN Inactive BACTRIM 400-80 MG ORAL TABLET take one po BID BACTRIM 400- 80 MG ORAL TABLET 028865 SULFAMETHOXAZOLE-TRIMETHOPRIM Inactive AZITHROMYCIN 250 MG ORAL TABLET 2 po qd x 1 day, then 1 po q d x 4 days AZITHROMYCIN 250 MG ORAL TABLET 614622 AZITHROMY ALLISON Inactive PREDNISONE 20 MG ORAL TABLET 2 tabs daily for 3 days, 1 tab daily for 3 days, 1/2 tab daily for 2 days PREDNISONE 20 MG ORAL T ABLET 491406 PREDNISONE Inactive ZITHROMAX 250 MG ORAL TABLET 2 po today, then 1 po q days 2-5 20 06/08/16 ZITHROMAX 250 MG ORAL TABLET 969330 AZITHROMYCIN Arlen ctive FLAGYL 500 MG ORAL TABLET 1 tablet by mouth two times daily 2014 FLAGYL 500 MG ORAL TABLET 369717 METRONIDAZOLE Inacti ve AUGMENTIN 875-125 MG ORAL TABLET 1 tab by mouth twice daily with food AUGMENTIN 875-125 MG ORAL TABLET 920467 AMOXICIL ELSA-POT CLAVULANATE Inactive NAPROXEN 500 MG ORAL TABLET one tab PO BID NAPROXEN 500 MG ORAL TABLET 243861 NAPROXEN Inactive PREDNISONE 20 MG ORAL TABLET 2 tabs daily for 3 days, 1 tab daily for 3 days, 1/2 tab daily for 2 days PREDNISONE 20 MG ORAL T ABLET 145149 PREDNISONE Inactive AZITHROMYCIN 250 MG ORAL TABLET 2 po qd x 1 day, then 1 po q d x 4 days AZITHROMYCIN 250 MG ORAL TABLET 048286 AZITHROMY ALLISON Inactive PREDNISONE 20 MG ORAL TABLET 2 tabs daily for 3 days, 1 tab daily for 3 days, 1/2 tab daily for 2 days PREDNISONE 20 MG ORAL T ABLET 985780 PREDNISONE Inactive ZITHROMAX Z-EMIL 250 MG ORAL TABLET 2 today, then 1 daily for 4 d ays ZITHROMAX Z-EMIL 250 MG ORAL TABLET 041611 AZITHROMYCIN Inactive CEFDINIR 300 MG ORAL CAPSULE 1 po BID x 10 days 12/18 CEFDINIR 300 MG ORAL CAPSULE 026940 CEFDINIR Inactive CEFDINIR 300 MG ORAL CAPSULE 1 po BID x 10 days CEFDINIR 300 MG ORAL CAPSULE 844320 CEFDINIR Inactive PREDNISONE 20 MG ORAL TABLET 2 tabs daily for 3 days, 1 tab daily for 3 days, 1/2 tab daily for 2 days PREDNISONE 20 MG ORAL T ABLET 418966 PREDNISONE Inactive BACTRIM DS 800-160 MG ORAL TABLET 1 tab by mouth twice daily 201 05/02/30 BACTRIM DS 800-160 MG ORAL TABLET 672647 TRIMETHOPRIM-SULFAMETHOXAZOLE Inactive ZITHROMAX Z-EMIL 250 MG ORAL TABLET 2 today, then 1 daily for 4 d ays ZITHROMAX Z-EMIL 250 MG ORAL TABLET 089472 AZITHROMYCIN Inactive TAMIFLU 75 MG ORAL CAPSULE 1 po BID x 5 days 0 TAMIFLU 75 MG ORAL CAPSULE 162482 OSELTAMIVIR PHOSPHATE Inactive Advance Directives Directive Description [...] Unit Range Description Lab Report: CBC, Quant [facility] Hematology leukocyte count, blood 7.8 10^3/MM^3 [...] 5.0-8.5 Encounters Code Encounter Date Provider Facility CPT-45441 Level 3 Est. Patient 11:49:34 COMPUTER NUMERICAL CONTROL MACHINIST Jessica boyd [facility] [place] CPT-47582 Level 3 Est. Patient 14:55:50 COMPUTER NUMERICAL CONTROL MACHINIST [facility] CPT-15909 Level 3 Est. Patient 10:21:41 COMPUTER NUMERICAL CONTROL MACHINIST Arie mcqueen MD [facility] CPT-82680 Level 3 Est. Patient 11:35:15 COMPUTER NUMERICAL CONTROL MACHINIST Arie mcqueen MD [facility] CPT-87573 Level 3 Est. Patient 15:40:28 CDT Brii escalante [facility] [place] CPT-20079 Level 3 Est. Patient 16:40:36 CDT Arie mcqueen MD [facility] CPT-45875 Level 4 Est. Patient 15:29:22 COMPUTER NUMERICAL CONTROL MACHINIST Arie mcqueen MD [facility] CPT-22406 Level 3 Est. Patient 15:18:16 COMPUTER NUMERICAL CONTROL MACHINIST Jono black DO [facility] CPT-74773 Level 4 Est. Patient 12:08:40 COMPUTER NUMERICAL CONTROL MACHINIST Brii Are ll [facility] CPT-27050 Level 3 Est. Patient 09:24:42 CDT Brii Are ll [facility] CPT-30798 Level 3 Est. Patient 09:12:56 CDT Arie mcqueen MD [facility] CPT-09011 Level 3 Est. Patient 16:40:54 CDT Jose Zhong MD [facility] CPT-71720 Level 2 Est. Patient 13:01:13 CDT Brii Are ll [facility] [place] CPT-91207 Level 3 Est. Patient 11:55:30 COMPUTER NUMERICAL CONTROL MACHINIST Jono black [facility] CPT-83901 Level 3 Est. Patient 09:52:36 COMPUTER NUMERICAL CONTROL MACHINIST Brii Are ll [facility] CPT-67803 Level 3 Est. Patient 16:25:33 COMPUTER NUMERICAL CONTROL MACHINIST Rich Rosales MD [facility] CPT-19839 Level 3 Est. Patient 20:33:55 CDT Arie mcqueen MD [facility] CPT-25273 Level 3 Est. Patient 14:18:20 CDT Rich Rosales MD [facility] CPT-80056 Level 4 Est. Patient 09:34:31 CDT Arie mcqueen MD [facility] CPT-22733 Level 3 Est. Patient 09:08:55 COMPUTER NUMERICAL CONTROL MACHINIST Liliana vincent MD [facility] CPT-29772 Level 3 Est. Patient 16:44:07 COMPUTER NUMERICAL CONTROL MACHINIST Arie mcqueen MD [facility] CPT-94044 Level 3 Est. Patient 10:44:27 CDT Arie mcqueen MD [facility] CPT-01443 Level 3 Est. Patient 08:55:41 CDT Jose Zhong MD [facility] CPT-29792 Level 3 Est. Patient 18:37:31 CDT Liliana vincent MD PhD [facility] CPT-26689 Level 3 Est. Patient 14:28:23 CDT Abelardo HERNANDEZ [facility] CPT-34847 Level 3 Est. Patient 15:18:13 COMPUTER NUMERICAL CONTROL MACHINIST Arie mcqueen MD [facility] CPT-79248 Level 3 Est. Patient 10:11:29 COMPUTER NUMERICAL CONTROL MACHINIST Arie mcqueen MD [facility] CPT-91791 Level 3 Est. Patient 10:55:57 COMPUTER NUMERICAL CONTROL MACHINIST Jono Cheema ee DO [facility] CPT-47984 Level 3 Est. Patient 17:29:05 CDT Arie mcqueen MD [facility] Procedures Code Procedure Name Date Entry Date Standard Desc ription CPT-03323 Nexplanon Removal 15:40:28 CDT CPT-58744 Sono transvag pelvis non OB uterus ovari es cervix - XRAY USE ONLY 08:58:14 COMPUTER NUMERICAL CONTROL MACHINIST CPT-08851 UA w micro - LAB USE ONLY 16:04:56 COMPUTER NUMERICAL CONTROL MACHINIST 2015 CPT-76342 Wet Prep/GEN - LAB USE ONLY 16:04:56 COMPUTER NUMERICAL CONTROL MACHINIST 20 08/10/29 CPT-55072 First Vx - Ix admin via ID I M or jet injects without counseling by physician 16:57:10 CDT CPT-62452 Fluzone Preservative Free Intramuscular Suspension 16:57:10 CDT CPT-J0696 Rocephin 1000 mg (Ceftriaxone) 11:49:23 CDT CPT-J1040 Depo Medrol 80 mg (Methyl Prednisolone A cetate) 11:49:23 CDT CPT-J1100 Decadron 8mg (Dexamethasone) 11:49:23 CDT 2 CPT-28859 Abx/Therapy Injection 11:49:23 CDT CPT-09020 Abx/Therapy Injection 11:49:23 CDT CPT-95691 Abd compl w upright 09:07:26 COMPUTER NUMERICAL CONTROL MACHINIST CPT-40899 Ear Wash 16:12:47 COMPUTER NUMERICAL CONTROL MACHINIST CPT-OV Office Visit 11:12:01 CDT CPT-OV Office Visit 15:30:23 CDT CPT-19759 Sono pelvis non OB uterus ovaries cervix 15:50:44 CDT CPT-51824 Hand comp min 3V 16:42:32 CDT CPT-99264 Abd compl w upright 12:17:01 CDT CPT-36986 Nexplanon Placement 15:07:39 COMPUTER NUMERICAL CONTROL MACHINIST CPT-59388 Removal of IUD 15:07:39 COMPUTER NUMERICAL CONTROL MACHINIST CPT-15336 TB Tubersol 12:09:32 CDT CPT-02426 TB Tubersol 13:55:43 CDT
--- OUTSIDE RECORDS SUMMARY | 2020-03-03 07:43 | XMS REPORT | Clinical Summary ---
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 PANTOPRAZO LE SODIUM 30105710053 Active Carline Ochoa RPT,RMA Active PREDNISONE 20 MG TAB 2 tabs daily for 3 days, 1 t ab daily for 3 days, 1/2 tab daily for 2 days PREDNISONE 01675944412 No Longer Active Brii Larson APRN Active PREDNISONE 20 MG TAB 1 tablet twice daily for 2 d ays, then 1 tablet once daily for 2 days PREDNISONE 64285710429 No Longer Active Brii Larson APRN Active FLONASE 50 MCG/ACT SUSP 1 spray each nostril twice d aily for allergies and runny nose until gone FLUTICASONE PROPIONATE Active Jono Gagnon DO Active PROMETHAZINE HCL 12.5 MG TABS 1 tablet by mouth every 6 hours as needed for nausea/vomiting PROMETHAZINE HCL 06137148958 No Longe r Active Jono Gagnon DO Active CITRATE OF MAGNESIA ORAL SOLN 1 bottle today for constipation 20 15/12/15 MAGNESIUM CITRATE 25433617691 No Longer Active Jono Gagnon DO Active ZOFRAN 4 MG ORAL TABS 1 TAB PO Q 6 HRS PRN NAUSEA 2014 ONDANSETRON HCL 34224871079 No Longer Active Brii Larson APRN A ctive LOMOTIL 2.5-0.025 MG TAB 1 to 2 four times a day as needed f or diarrhea DIPHENOXYLATE-ATROPINE 40281579161 No Longer Active January Larson APRN Active AMOXICILLIN 500 MG TABS 2 tabs twice a day for 10 days AMOXICILLIN 54333468729 No Longer Active Brii Larson APRN Acti ve NEXPLANON IMPL ETONOGESTREL IMPL 16107943726 Active Rich Rosales MD Active CYCLOBENZAPRINE HCL 10 MG TABS 1/2 - 1 tablet by mouth three times daily as needed for muscle spasm/pain CYCLOBENZAPRINE HCL 01673664069 No Longer Active Arie Casper MD Active LOMOTIL 2.5-0.025 MG TABS 1 to 2 four times a day as needed for diarrhea DIPHENOXYLATE-ATROPINE 62131931556 No Longer Active Fozia Casper MD Active MACROBID 100 MG CAP 1 cap by mouth twice daily NITROFURANTOIN MONOHYD MACRO 43752463343 No Longer Active Arie Casper MD Active ZYRTEC ALLERGY 10 MG CAPS 1 po qd CETIRIZINE HCL 00537644955 No Longer Active Arie Casper MD Active AZITHROMYCIN 250 MG TABS 2 po qd x 1 day, then 1 po qd x 4 days AZITHROMYCIN 16143287136 No Longer Active Jessica Heaton APRN Active PREDNISONE 20 MG TAB 2 tabs daily for 3 days, 1 t ab daily for 3 days, 1/2 tab daily for 2 days PREDNISONE 70512505315 No Longer Active Jillina Frazell [employer]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 PROMETHAZINE HCL 25 MG TABS 1 four times a day as needed for vomiting PROMETHAZINE HCL 56001511861 No Longer Active Myrna Roberto MD Active BACTRIM DS 800-160 MG TABS 1 twice a day SULFAMETHOXAZOLE-TRIMETHOPRIM 72130635613 No Longer Active Myrna Roberto MD Active VICKS DAYQUIL SEVERE COLD/FLU TABS 1 tab every 6 hours prn 12/10 [id number] TABS 04699222180 No Longer Active Myrna leigh MD Active GUAIFENESIN-CODEINE 100-10 MG/5ML ORAL SYRP 2 tsp every 6 hours prn GUAIFENESIN-CODEINE 74234463562 No Longer Active Myrna Roberto MD Active NAPROXEN 500 MG TAB one tab PO BID NAPROXEN 332 91897077 No Longer Active Myrna Roberto MD Active AUGMENTIN 875-125 MG TAB 1 tab by mouth twice daily with food 08/12/16 AMOXICILLIN-POT CLAVULANATE 37310835102 No Longer Active Liliana Estrada MD PhD Active AMOXICILLIN 500 MG CAP 1 tab by mouth 3 times daily 08/12/16 AMOXICILLIN 60936499342 No Longer Active Liliana Estrada MD PhD Acti ve TESSALON PERLES 100 MG CAP 1 tablet by mouth 3 times daily 11/01 BENZONATATE 59526630687 No Longer Active Liliana Estrada MD PhD Active FLAGYL 500 MG TAB 1 tablet by mouth two times daily 07/11/29 METRONIDAZOLE 63278468943 No Longer Active Nilam Raida Active ZITHROMAX 250 MG TAB 2 po today, then 1 po q days 2-5 AZITHROMYCIN 04769224788 No Longer Active Arie Casper MD Acti ve VITAMINS 0.8 MG TABS take 1 tab po qday 08/08 [id number] 64819401267 No Longer Active Arie Casper MD Active IBUPROFEN 800 MG TABS take one po Q 8 hours IBU PROFEN 68647037974 No Longer Active Arie Casper MD Active [facility] TUSSIN COUGH/COLD CF 5-10-100 MG/5ML LIQD 2 teaspoons ev eliud 4 hours [id number] 18077299039 No Longer Active Blaine Casper MD Active COMTREX COLD/COUGH DAY/NITE MS 5-2-10-325 MG MISC 2 caps deja ry 4 hours [id number] 18816095246 No Longer Active Landon Casper MD Active CHLORASEPTIC MAX SORE THROAT 15-10 MG LOZG 1 every 2 hours prn 2 BENZOCAINE-MENTHOL 74314217835 No Longer Active Arie Marcelo Active PREDNISONE 20 MG TAB 2 tabs daily for 3 days, 1 t ab daily for 3 days, 1/2 tab daily for 2 days PREDNISONE 08852438593 No Longer Active Jose Zhong MD Active AZITHROMYCIN 250 MG TABS 2 po qd x 1 day, then 1 po qd x 4 days AZITHROMYCIN 98648840704 No Longer Active Jose Zhong MD Active ZOFRAN ODT 4 MG TBDP 1 po q6hr PRN Nausea ONDAN SETRON 22390007261 No Longer Active Rich Rosales MD Active ZOFRAN 4 MG TABS 1 tablet every 4 hours ONDANSE JERRELL HCL 81082645613 No Longer Active Rich Rosales MD Active MUCINEX 600 MG [id number] Take 1-2 tablets every 12 hours GUAIFENESIN 62140285583 No Longer Active Rich Rosales MD Activ e BACTRIM 400-80 MG TABS take one po BID SULFAMETHOXAZOLE-TRIMETHOPRIM 25332061371 No Longer Active Abelardo HERNANDEZ Active AZITHROMYCIN 500 MG TABS 1 PO q day x 6 days AZ ITHROMYCIN 22043679556 No Longer Active Tin HERNANDEZ Active ZITHROMAX 250 MG TAB 2 po today, then 1 po q days 2-5 AZITHROMYCIN 46697877956 No Longer Active Arie Casper MD Acti ve ZITHROMAX 250 MG TAB 2 po today, then 1 po q days 2-5 AZITHROMYCIN 45098141008 No Longer Active Arie Casper MD Acti ve AMOXICILLIN 500 MG CAP 1 tab by mouth 3 times daily 09/23/20 AMOXICILLIN 33210048100 No Longer Active Arie Casper MD Acti ve BACTRIM DS 800-160 MG TAB 1 tab by mouth twice daily 2 TRIMETHOPRIM-SULFAMETHOXAZOLE 30515544236 No Longer Active Arie Casper MD Active AMOXICILLIN 500 MG TABS take 1 tab po TID AMOXI CILLIN 91514808365 No Longer Active Arie Casper MD Active BACTRIM DS 800-160 MG TAB 1 tab by mouth twice daily 2 BACTRIM DS 800-160 MG TAB 190271 TRIMETHOPRIM-SULFAMETHOXAZOLE Inac tive MUCINEX 600 MG [id number] Take 1-2 tablets every 12 hours MUCINEX 600 MG [id number] GUAIFENESIN Inactive ZOFRAN 4 MG TABS 1 tablet every 4 hours ZOFRAN 4 MG TABS 838978 ONDANSETRON HCL Inactive ZOFRAN ODT 4 MG TBDP 1 po q6hr PRN Nausea ZOFRAN ODT 4 MG TBDP 334881 ONDANSETRON Inactive CHLORASEPTIC MAX SORE THROAT 15-10 MG LOZG 1 every 2 hours prn 2 /04/30 CHLORASEPTIC MAX SORE THROAT 15-10 MG LOZG BENZO ARINA-MENTHOL Inactive COMTREX COLD/COUGH DAY/NITE MS 5-2-10-325 MG MISC 2 caps deja ry 4 hours COMTREX COLD/COUGH DAY/NITE MS 5-2-10-325 MG MIS C [id number] Inactive [facility] TUSSIN COUGH/COLD CF 5-10-100 MG/5ML LIQD 2 teaspoons ev eliud 4 hours [facility] TUSSIN COUGH/COLD CF 5-10-100 MG/5ML LIQD DZZITHSTHEPIY-QQ-AU Inactive IBUPROFEN 800 MG TABS take one po Q 8 hours IBUPROFEN 800 MG TABS IBUPROFEN Inactive VITAMINS 0.8 MG TABS take 1 tab po qday 08/08 VITAMINS 0.8 MG TABS [id number] Inactive TESSALON PERLES 100 MG CAP 1 tablet by mouth 3 times daily 11/01 TESSALON PERLES 100 MG CAP 483191 BENZONATATE Inact zaid AMOXICILLIN 500 MG CAP 1 tab by mouth 3 times daily 08/12/16 AMOXICILLIN 500 MG CAP 283506 AMOXICILLIN Inactive GUAIFENESIN-CODEINE 100-10 MG/5ML ORAL SYRP 2 tsp every 6 hours prn GUAIFENESIN-CODEINE 100-10 MG/5ML ORAL SYRP 396440 GUAIFENESIN-CODEINE Inactive VICKS DAYQUIL SEVERE COLD/FLU TABS 1 tab every 6 hours prn 12/10 VICKS DAYQUIL SEVERE COLD/FLU TABS PHENYLEPHRINE -DM-GG-APAP TABS Inactive BACTRIM DS 800-160 MG TABS 1 twice a day BACTRIM DS 800- 160 MG TABS 444083 SULFAMETHOXAZOLE-TRIMETHOPRIM Inactive PROMETHAZINE HCL 25 MG TABS 1 four times a day as needed for vomiting PROMETHAZINE HCL 25 MG TABS 248627 PROMETHAZINE HCL Inactive ZYRTEC ALLERGY 10 MG CAPS 1 po qd ZY RTEC ALLERGY 10 MG CAPS CETIRIZINE HCL Inactive MACROBID 100 MG CAP 1 cap by mouth twice daily MACROBID 100 MG CAP 4624867 NITROFURANTOIN MONOHYD MACRO Inactive LOMOTIL 2.5-0.025 MG TABS 1 to 2 four times a day as needed for diarrhea LOMOTIL 2.5-0.025 MG TABS 6014693 DIPHENOXYLATE-A TROPINE Inactive CYCLOBENZAPRINE HCL 10 MG TABS 1/2 - 1 tablet by mouth three times daily as needed for muscle spasm/pain CYCLOBENZAP RINE HCL 10 MG TABS 876170 CYCLOBENZAPRINE HCL Inactive AMOXICILLIN 500 MG TABS 2 tabs twice a day for 10 days AMOXICILLIN 500 MG TABS 928075 AMOXICILLIN Inactive LOMOTIL 2.5-0.025 MG TAB 1 to 2 four times a day as needed f or diarrhea LOMOTIL 2.5-0.025 MG TAB 3390361 DIPHENOXYLATE-AT ROPINE Inactive ZOFRAN 4 MG ORAL TABS 1 TAB PO Q 6 HRS PRN NAUSEA 2014 ZOFRAN 4 MG ORAL TABS 338587 ONDANSETRON HCL Inactive CITRATE OF MAGNESIA ORAL SOLN 1 bottle today for constipation 20 07/10/15 CITRATE OF MAGNESIA ORAL SOLN 5461221 MAGNESIUM CITRATE Inactive PROMETHAZINE HCL 12.5 MG TABS 1 tablet by mouth every 6 hours as needed for nausea/vomiting PROMETHAZINE HCL 12.5 MG TABS 634945 PROMETHAZINE HCL Inactive PREDNISONE 20 MG TAB 1 tablet twice daily for 2 d ays, then 1 tablet once daily for 2 days PREDNISONE 20 MG TAB 924868 PREDNISONE Inac tive AMOXICILLIN 500 MG TABS take 1 tab po TID AMOXICILLIN 500 MG TABS 730113 AMOXICILLIN Inactive AMOXICILLIN 500 MG CAP 1 tab by mouth 3 times daily 09/23/20 AMOXICILLIN 500 MG CAP 760805 AMOXICILLIN Inactive ZITHROMAX 250 MG TAB 2 po today, then 1 po q days 2-5 ZITHROMAX 250 MG TAB 0021004 AZITHROMYCIN Inactive ZITHROMAX 250 MG TAB 2 po today, then 1 po q days 2-5 ZITHROMAX 250 MG TAB 9530263 AZITHROMYCIN Inactive AZITHROMYCIN 500 MG TABS 1 PO q day x 6 days 3 AZITHROMYCIN 500 MG TABS 4080777 AZITHROMYCIN Inactive BACTRIM 400-80 MG TABS take one po BID BA CTRIM 400-80 MG TABS 658007 SULFAMETHOXAZOLE-TRIMETHOPRIM Inactive AZITHROMYCIN 250 MG TABS 2 po qd x 1 day, then 1 po qd x 4 days AZITHROMYCIN 250 MG TABS 4248948 AZITHROMYCIN Inactiv e PREDNISONE 20 MG TAB 2 tabs daily for 3 days, 1 t ab daily for 3 days, 1/2 tab daily for 2 days PREDNISONE 20 MG TAB 273640 PREDNISON E Inactive ZITHROMAX 250 MG TAB 2 po today, then 1 po q days 2-5 ZITHROMAX 250 MG TAB 2070861 AZITHROMYCIN Inactive FLAGYL 500 MG TAB 1 tablet by mouth two times daily 07/11/29 FLAGYL 500 MG TAB 196846 METRONIDAZOLE Inactive AUGMENTIN 875-125 MG TAB 1 tab by mouth twice daily with food 20 08/12/16 AUGMENTIN 875-125 MG TAB 480685 AMOXICILLIN-POT CLAVULA ANGELO Inactive NAPROXEN 500 MG TAB one tab PO BID NAPROXEN 500 MG TAB 108589 NAPROXEN Inactive PREDNISONE 20 MG TAB 2 tabs daily for 3 days, 1 t ab daily for 3 days, 1/2 tab daily for 2 days PREDNISONE 20 MG TAB 951643 PREDNISON E Inactive AZITHROMYCIN 250 MG TABS 2 po qd x 1 day, then 1 po qd x 4 days AZITHROMYCIN 250 MG TABS 6787380 AZITHROMYCIN Inactiv e PREDNISONE 20 MG TAB 2 tabs daily for 3 days, 1 t ab daily for 3 days, 1/2 tab daily for 2 days PREDNISONE 20 MG TAB 113115 PREDNISON E Inactive Advance Directives Directive Description [...] Panel - Chemistry sodium, serum 136 mmol/L 390-540 8116/04/26 carbon dioxide, venous blood 29.9 mmol/L 21.0-32 [...] - Chem istry sodium, serum 139 mmol/L 863-916 1638/12/15 carbon dioxide, venous blood 30.2 mmol/L 21.0-32 [...] 5.0-8.5 Encounters Code Encounter Date Provider Facility CPT-70632 Level 3 Est. Patient 16:40:54 CDT Jose Zhong MD [facility] CPT-35353 Level 2 Est. Patient 13:01:13 CDT [facility] CPT-66058 Level 3 Est. Patient 11:55:30 2ND PRESSMAN Jono black DO [facility] CPT-38689 Level 3 Est. Patient 09:52:36 2ND PRESSMAN [facility] CPT-43235 Level 3 Est. Patient 16:25:33 2ND PRESSMAN [facility] CPT-96540 Level 3 Est. Patient 20:33:55 CDT Arie mcqueen [facility] CPT-17201 Level 3 Est. Patient 14:18:20 CDT Rich Rosales [facility] CPT-70605 Level 4 Est. Patient 09:34:31 CDT Arie mcqueen MD [facility] CPT-77580 Level 3 Est. Patient 09:08:55 2ND PRESSMAN Liliana vincent MD PhD [facility] CPT-75952 Level 3 Est. Patient 16:44:07 2ND PRESSMAN Arie mcqueen MD [facility] CPT-91747 Level 3 Est. Patient 10:44:27 CDT Arie mcqueen MD [facility] CPT-58858 Level 3 Est. Patient 08:55:41 CDT Jose Zhong MD [facility] CPT-73495 Level 3 Est. Patient 18:37:31 CDT Liliana vincent MD [facility] CPT-31398 Level 3 Est. Patient 14:28:23 CDT Abelardo HERNANDEZ [facility] CPT-27003 Level 3 Est. Patient 15:18:13 2ND PRESSMAN Arie mcqueen MD [facility] CPT-70801 Level 3 Est. Patient 10:11:29 2ND PRESSMAN Arie mcqueen MD [facility] CPT-01473 Level 3 Est. Patient 10:55:57 2ND PRESSMAN Jono black DO [facility] CPT-56485 Level 3 Est. Patient 17:29:05 CDT Arie mcqueen MD [facility] Procedures Code Procedure Name Date Entry Date Standard Desc ription CPT-56946 Abd compl w upright 09:07:26 2ND PRESSMAN CPT-32754 Ear Wash 16:12:47 2ND PRESSMAN CPT-OV Office Visit 11:12:01 CDT CPT-OV Office Visit 15:30:23 CDT CPT-08564 Sono pelvis non OB uterus ovaries cervix 15:50:44 CDT CPT-17299 Hand comp min 3V 16:42:32 CDT CPT-38370 Abd compl w upright 12:17:01 CDT CPT-28953 Nexplanon Placement 15:07:39 2ND PRESSMAN CPT-38022 Removal of IUD 15:07:39 2ND PRESSMAN CPT-41531 TB Tubersol 12:09:32 CDT CPT-02319 TB Tubersol 13:55:43 CDT
--- OUTSIDE RECORDS SUMMARY | 2020-03-03 07:44 | XMS REPORT | Clinical Summary ---
Author Author Admin, Diamante Marcelo Organization [facility] Address Unknown Phone Unavailable Allergies, Adverse Reactions, [...] cute pharyngitis Nausea 787.02 Active Brii Larson BEEF SPECIALIST Nausea alone URI 465.9 Active Jono [...] Anxiety with depression 300.4 Active Glenn Larson BEEF SPECIALIST Dysthymic disorder URI 465.9 Active Jono Gagnon [...] MG TAB Take 1 tab BID NAPROXEN 773019101 15 Active Brii Larson APRN Active NEXPLANON IMPL Left arm subcutaneously ETONOGES TREL IMPL 99740910060 Active Brii Larson APRN Active CEFDINIR 300 MG CAPS 1 po BID x 10 days CEFDINI R 63994746348 No Longer Active Brii Larson APRN Active PREDNISONE 20 MG TAB 1 tablet daily for airway inflammation 2015 PREDNISONE 71137392315 No Longer Active Brii Larson APRN Active CEFDINIR 300 MG CAPS 1 po BID x 10 days CEFDINI R 07053341876 No Longer Active Jono Gagnon DO Active FLONASE 50 MCG/ACT SUSP 1 spray each nostril twice d aily for allergies and runny nose until gone FLUTICASONE PROPIONATE No Longe r Active Jono Gagnon DO Active ALPRAZOLAM 0.25 MG TAB 1 tablet by mouth every 8 hours as ne eded for stress ALPRAZOLAM 41641142594 No Longer Active Jono Gagnon DO Active ZOLOFT 50 MG TAB 1 tablet by mouth daily SERTRA LINE HCL 26003865091 Active Arie Casper MD Active LOMOTIL 2.5-0.025 MG TAB 1 tab po four times a day as needed for diarrhea DIPHENOXYLATE-ATROPINE 31901334245 Active Brii Larson APRN Active ZITHROMAX Z-EMIL 250 MG TABS 2 today, then 1 daily for 4 days 201 03/31/18 AZITHROMYCIN 99298205649 No Longer Active Arie Casper MD Active PROTONIX 40 MG ORAL TBEC 1 po q a.m. PANTOPRAZO LE SODIUM 32547224787 Active Carline Ochoa RPT,RMA Active PREDNISONE 20 MG TAB 2 tabs daily for 3 days, 1 t ab daily for 3 days, 1/2 tab daily for 2 days PREDNISONE 43929175110 No Longer Active Brii Larson APRN Active PREDNISONE 20 MG TAB 1 tablet twice daily for 2 d ays, then 1 tablet once daily for 2 days PREDNISONE 89758947505 No Longer Active Brii Larson APRN Active PROMETHAZINE HCL 12.5 MG TABS 1 tablet by mouth every 6 hours as needed for nausea/vomiting PROMETHAZINE HCL 33355763070 No Longe r Active Jono Gagnon DO Active CITRATE OF MAGNESIA ORAL SOLN 1 bottle today for constipation 20 07/10/15 MAGNESIUM CITRATE 73863935152 No Longer Active Jono Gagnon DO Active ZOFRAN 4 MG ORAL TABS 1 TAB PO Q 6 HRS PRN NAUSEA 2014 ONDANSETRON HCL 23430007632 No Longer Active Brii Larson APRN A ctive LOMOTIL 2.5-0.025 MG TAB 1 to 2 four times a day as needed f or diarrhea DIPHENOXYLATE-ATROPINE 67041633849 No Longer Active January Larson APRN Active AMOXICILLIN 500 MG TABS 2 tabs twice a day for 10 days AMOXICILLIN 73809560422 No Longer Active Brii Larson APRN Acti ve CYCLOBENZAPRINE HCL 10 MG TABS 1/2 - 1 tablet by mouth three times daily as needed for muscle spasm/pain CYCLOBENZAPRINE HCL 92225875770 No Longer Active Arie Casper MD Active LOMOTIL 2.5-0.025 MG TABS 1 to 2 four times a day as needed for diarrhea DIPHENOXYLATE-ATROPINE 97043120643 No Longer Active D freddy Casper MD Active MACROBID 100 MG CAP 1 cap by mouth twice daily NITROFURANTOIN MONOHYD MACRO 77825826503 No Longer Active Arie Casper MD Active ZYRTEC ALLERGY 10 MG CAPS 1 po qd CETIRIZINE HCL 69466989745 No Longer Active Arie Casper MD Active AZITHROMYCIN 250 MG TABS 2 po qd x 1 day, then 1 po qd x 4 days AZITHROMYCIN 80192098454 No Longer Active Jillina Franaomi CABRERA Active PREDNISONE 20 MG TAB 2 tabs daily for 3 days, 1 t ab daily for 3 days, 1/2 tab daily for 2 days PREDNISONE 22178524846 No Longer Active Jillina Frazell RICK Active PROMETHAZINE HCL 25 MG TABS 1 four times a day as needed for vomiting PROMETHAZINE HCL 39441661722 No Longer Active Myrna Roberto MD Active BACTRIM DS 800-160 MG TABS 1 twice a day SULFAMETHOXAZOLE-TRIMETHOPRIM 98975019077 No Longer Active Myrna Roberto MD Active VICKS DAYQUIL SEVERE COLD/FLU TABS 1 tab every 6 hours prn 12/10 [id number] TABS 63710640276 No Longer Active Myrna leigh MD Active GUAIFENESIN-CODEINE 100-10 MG/5ML ORAL SYRP 2 tsp every 6 hours prn GUAIFENESIN-CODEINE 41855744322 No Longer Active Myrna Roberto MD Active NAPROXEN 500 MG TAB one tab PO BID NAPROXEN 332 35365857 No Longer Active Myrna Roberto MD Active AUGMENTIN 875-125 MG TAB 1 tab by mouth twice daily with food 20 08/12/16 AMOXICILLIN-POT CLAVULANATE 37648154681 No Longer Active Liliana Etsrada MD PhD Active AMOXICILLIN 500 MG CAP 1 tab by mouth 3 times daily 08/12/16 AMOXICILLIN 93679402475 No Longer Active Liliana Estrada MD PhD Acti ve TESSALON PERLES 100 MG CAP 1 tablet by mouth 3 times daily 11/01 BENZONATATE 98751257539 No Longer Active Liliana Estrada MD PhD Active FLAGYL 500 MG TAB 1 tablet by mouth two times daily 07/11/29 METRONIDAZOLE 35649960063 No Longer Active Nilamnory Weber Active ZITHROMAX 250 MG TAB 2 po today, then 1 po q days 2-5 AZITHROMYCIN 70208707310 No Longer Active Arie Casper MD Acti ve VITAMINS 0.8 MG TABS take 1 tab po qday 08/08 [id number] 58579042507 No Longer Active Arie Casper MD Active IBUPROFEN 800 MG TABS take one po Q 8 hours IBU PROFEN 34235099178 No Longer Active Arie Casper MD Active [facility] TUSSIN COUGH/COLD CF 5-10-100 MG/5ML LIQD 2 teaspoons ev eliud 4 hours [id number] 45981812725 No Longer Active Blaine Casper MD Active COMTREX COLD/COUGH DAY/NITE MS 5-2-10-325 MG MISC 2 caps deja ry 4 hours [id number] 66859074943 No Longer Active Da aleksandra Casper MD Active CHLORASEPTIC MAX SORE THROAT 15-10 MG LOZG 1 every 2 hours prn 2 BENZOCAINE-MENTHOL 12571183527 No Longer Active Arie Marcelo Active PREDNISONE 20 MG TAB 2 tabs daily for 3 days, 1 t ab daily for 3 days, 1/2 tab daily for 2 days PREDNISONE 55623680049 No Longer Active Jose Zhong MD Active AZITHROMYCIN 250 MG TABS 2 po qd x 1 day, then 1 po qd x 4 days AZITHROMYCIN 04446043491 No Longer Active Jose Zhong MD Active ZOFRAN ODT 4 MG TBDP 1 po q6hr PRN Nausea ONDAN SETRON 01355978886 No Longer Active Rich Rosales MD Active ZOFRAN 4 MG TABS 1 tablet every 4 hours ONDANSE JERRELL HCL 28403492582 No Longer Active Rich Rosales MD Active MUCINEX 600 MG [id number]-MGG Take 1-2 tablets every 12 hours GUAIFENESIN 94580704704 No Longer Active Rich Rosales MD Activ e BACTRIM 400-80 MG TABS take one po BID SULFAMETHOXAZOLE-TRIMETHOPRIM 93558209314 No Longer Active Abelardo HERNANDEZ Active AZITHROMYCIN 500 MG TABS 1 PO q day x 6 days AZ ITHROMYCIN 70492070069 No Longer Active Tin HERNANDEZ Active ZITHROMAX 250 MG TAB 2 po today, then 1 po q days 2-5 AZITHROMYCIN 45540020532 No Longer Active Arie Casper MD Acti ve ZITHROMAX 250 MG TAB 2 po today, then 1 po q days 2-5 AZITHROMYCIN 59026244382 No Longer Active Arie Casper MD Acti ve AMOXICILLIN 500 MG CAP 1 tab by mouth 3 times daily 20 09/23/20 AMOXICILLIN 83855513114 No Longer Active Arie Casper MD Acti ve BACTRIM DS 800-160 MG TAB 1 tab by mouth twice daily 2 TRIMETHOPRIM-SULFAMETHOXAZOLE 13301934159 No Longer Active Arie Casper MD Active AMOXICILLIN 500 MG TABS take 1 tab po TID AMOXI CILLIN 55019248614 No Longer Active Arie Casper MD Active BACTRIM DS 800-160 MG TAB 1 tab by mouth twice daily 2 BACTRIM DS 800-160 MG TAB 061730 TRIMETHOPRIM-SULFAMETHOXAZOLE Inac tive MUCINEX 600 MG [id number] Take 1-2 tablets every 12 hours MUCINEX 600 MG [id number] GUAIFENESIN Inactive ZOFRAN 4 MG TABS 1 tablet every 4 hours ZOFRAN 4 MG TABS 917704 ONDANSETRON HCL Inactive ZOFRAN ODT 4 MG TBDP 1 po q6hr PRN Nausea ZOFRAN ODT 4 MG TBDP 655777 ONDANSETRON Inactive CHLORASEPTIC MAX SORE THROAT 15-10 MG LOZG 1 every 2 hours prn 2 CHLORASEPTIC MAX SORE THROAT 15-10 MG LOZG BENZO ARINA-MENTHOL Inactive COMTREX COLD/COUGH DAY/NITE MS 5-2-10-325 MG MISC 2 caps deja ry 4 hours COMTREX COLD/COUGH DAY/NITE MS 5-2-10-325 MG MIS C [id number] Inactive [facility] TUSSIN COUGH/COLD CF 5-10-100 MG/5ML LIQD 2 teaspoons ev eliud 4 hours [facility] TUSSIN COUGH/COLD CF 5-10-100 MG/5ML LIQD [id number] Inactive IBUPROFEN 800 MG TABS take one po Q 8 hours IBUPROFEN 800 MG TABS IBUPROFEN Inactive VITAMINS 0.8 MG TABS take 1 tab po qday 08/08 VITAMINS 0.8 MG TABS [id number] Inactive TESSALON PERLES 100 MG CAP 1 tablet by mouth 3 times daily 11/01 TESSALON PERLES 100 MG CAP 972535 BENZONATATE Inact zaid AMOXICILLIN 500 MG CAP 1 tab by mouth 3 times daily 08/12/16 AMOXICILLIN 500 MG CAP 407981 AMOXICILLIN Inactive GUAIFENESIN-CODEINE 100-10 MG/5ML ORAL SYRP 2 tsp every 6 hours prn GUAIFENESIN-CODEINE 100-10 MG/5ML ORAL SYRP 912827 GUAIFENESIN-CODEINE Inactive VICKS DAYQUIL SEVERE COLD/FLU TABS 1 tab every 6 hours prn 12/10 VICKS DAYQUIL SEVERE COLD/FLU TABS PHENYLEPHRINE -DM-GG-APAP TABS Inactive BACTRIM DS 800-160 MG TABS 1 twice a day BACTRIM DS 800- 160 MG TABS 688164 SULFAMETHOXAZOLE-TRIMETHOPRIM Inactive PROMETHAZINE HCL 25 MG TABS 1 four times a day as needed for vomiting PROMETHAZINE HCL 25 MG TABS 489534 PROMETHAZINE HCL Inactive ZYRTEC ALLERGY 10 MG CAPS 1 po qd ZY RTEC ALLERGY 10 MG CAPS CETIRIZINE HCL Inactive MACROBID 100 MG CAP 1 cap by mouth twice daily MACROBID 100 MG CAP 9064480 NITROFURANTOIN MONOHYD MACRO Inactive LOMOTIL 2.5-0.025 MG TABS 1 to 2 four times a day as needed for diarrhea LOMOTIL 2.5-0.025 MG TABS 2122190 DIPHENOXYLATE-A TROPINE Inactive CYCLOBENZAPRINE HCL 10 MG TABS 1/2 - 1 tablet by mouth three times daily as needed for muscle spasm/pain CYCLOBENZAP RINE HCL 10 MG TABS 536949 CYCLOBENZAPRINE HCL Inactive AMOXICILLIN 500 MG TABS 2 tabs twice a day for 10 days AMOXICILLIN 500 MG TABS 238249 AMOXICILLIN Inactive LOMOTIL 2.5-0.025 MG TAB 1 to 2 four times a day as needed f or diarrhea LOMOTIL 2.5-0.025 MG TAB 0454461 DIPHENOXYLATE-AT ROPINE Inactive ZOFRAN 4 MG ORAL TABS 1 TAB PO Q 6 HRS PRN NAUSEA 2014 ZOFRAN 4 MG ORAL TABS 666499 ONDANSETRON HCL Inactive CITRATE OF MAGNESIA ORAL SOLN 1 bottle today for constipation 20 07/10/15 CITRATE OF MAGNESIA ORAL SOLN 1005504 MAGNESIUM CITRATE Inactive PROMETHAZINE HCL 12.5 MG TABS 1 tablet by mouth every 6 hours as needed for nausea/vomiting PROMETHAZINE HCL 12.5 MG TABS 328260 PROMETHAZINE HCL Inactive PREDNISONE 20 MG TAB 1 tablet twice daily for 2 d ays, then 1 tablet once daily for 2 days PREDNISONE 20 MG TAB 098759 PREDNISONE Inac tive ALPRAZOLAM 0.25 MG TAB 1 tablet by mouth every 8 hours as ne eded for stress ALPRAZOLAM 0.25 MG TAB 770686 ALPRAZOLAM Inact zaid FLONASE 50 MCG/ACT SUSP 1 spray each nostril twice d aily for allergies and runny nose until gone FLONASE 50 MCG/ACT SUSP F LUTICASONE PROPIONATE Inactive PREDNISONE 20 MG TAB 1 tablet daily for airway inflammation 2015 PREDNISONE 20 MG TAB 523019 PREDNISONE Inactive AMOXICILLIN 500 MG TABS take 1 tab po TID AMOXICILLIN 500 MG TABS 091184 AMOXICILLIN Inactive AMOXICILLIN 500 MG CAP 1 tab by mouth 3 times daily 09/23/20 AMOXICILLIN 500 MG CAP 568044 AMOXICILLIN Inactive ZITHROMAX 250 MG TAB 2 po today, then 1 po q days 2-5 ZITHROMAX 250 MG TAB 5868254 AZITHROMYCIN Inactive ZITHROMAX 250 MG TAB 2 po today, then 1 po q days 2-5 ZITHROMAX 250 MG TAB 8517931 AZITHROMYCIN Inactive AZITHROMYCIN 500 MG TABS 1 PO q day x 6 days 3 AZITHROMYCIN 500 MG TABS 5007025 AZITHROMYCIN Inactive BACTRIM 400-80 MG TABS take one po BID BA CTRIM 400-80 MG TABS 551284 SULFAMETHOXAZOLE-TRIMETHOPRIM Inactive AZITHROMYCIN 250 MG TABS 2 po qd x 1 day, then 1 po qd x 4 days AZITHROMYCIN 250 MG TABS 0546428 AZITHROMYCIN Inactiv e PREDNISONE 20 MG TAB 2 tabs daily for 3 days, 1 t ab daily for 3 days, 1/2 tab daily for 2 days PREDNISONE 20 MG TAB 600737 PREDNISON E Inactive ZITHROMAX 250 MG TAB 2 po today, then 1 po q days 2-5 ZITHROMAX 250 MG TAB 1080911 AZITHROMYCIN Inactive FLAGYL 500 MG TAB 1 tablet by mouth two times daily 07/11/29 FLAGYL 500 MG TAB 877294 METRONIDAZOLE Inactive AUGMENTIN 875-125 MG TAB 1 tab by mouth twice daily with food 20 08/12/16 AUGMENTIN 875-125 MG TAB 860740 AMOXICILLIN-POT CLAVULA ANGELO Inactive NAPROXEN 500 MG TAB one tab PO BID NAPROXEN 500 MG TAB 628873 NAPROXEN Inactive PREDNISONE 20 MG TAB 2 tabs daily for 3 days, 1 t ab daily for 3 days, 1/2 tab daily for 2 days PREDNISONE 20 MG TAB 392308 PREDNISON E Inactive AZITHROMYCIN 250 MG TABS 2 po qd x 1 day, then 1 po qd x 4 days AZITHROMYCIN 250 MG TABS 6913941 AZITHROMYCIN Inactiv e PREDNISONE 20 MG TAB 2 tabs daily for 3 days, 1 t ab daily for 3 days, 1/2 tab daily for 2 days PREDNISONE 20 MG TAB 961920 PREDNISON E Inactive ZITHROMAX Z-EMIL 250 MG TABS 2 today, then 1 daily for 4 days 201 03/31/18 ZITHROMAX Z-EMIL 250 MG TABS 3208616 AZITHROMYCIN Inac tive CEFDINIR 300 MG CAPS 1 po BID x 10 days C EFDINIR 300 MG CAPS 678703 CEFDINIR Inactive CEFDINIR 300 MG CAPS 1 [...] Panel - Chemistry sodium, serum 136 mmol/L 225-043 4559/04/26 carbon dioxide, venous blood 29.9 mmol/L 21.0-32 [...] Negative Encounters Code Encounter Date Provider Facility CPT-17853 Level 4 Est. Patient 12:08:40 COAL TRIMMER Steve BEEF SPECIALIST [facility] CPT-99445 Level 3 Est. Patient 09:24:42 CDT Steve [facility] CPT-53409 Level 3 Est. Patient 09:12:56 CDT Arie mcqueen MD [facility] CPT-50488 Level 3 Est. Patient 16:40:54 CDT Jose Zhong MD [facility] CPT-14506 Level 2 Est. Patient 13:01:13 CDT Steve BEEF SPECIALIST [facility] CPT-79544 Level 3 Est. Patient 11:55:30 COAL TRIMMER Jono black DO [facility] CPT-73061 Level 3 Est. Patient 09:52:36 COAL TRIMMER Steve CABRERA [facility] CPT-86154 Level 3 Est. Patient 16:25:33 COAL TRIMMER Rich Rosales MD [facility] CPT-62771 Level 3 Est. Patient 20:33:55 CDT Arie mcqueen MD [facility] CPT-93570 Level 3 Est. Patient 14:18:20 CDT Rich Rosales MD [facility] CPT-07084 Level 4 Est. Patient 09:34:31 CDT Arie mcqueen MD [facility] CPT-20790 Level 3 Est. Patient 09:08:55 COAL TRIMMER Liliana vincent MD PhD [facility] CPT-44137 Level 3 Est. Patient 16:44:07 COAL TRIMMER Arie mcqueen MD [facility] CPT-80497 Level 3 Est. Patient 10:44:27 CDT Arie mcqueen MD [facility] CPT-84711 Level 3 Est. Patient 08:55:41 CDT Jsoe Zhong MD [facility] CPT-16200 Level 3 Est. Patient 18:37:31 CDT Liliana vincent MD PhD [facility] CPT-28215 Level 3 Est. Patient 14:28:23 CDT Abelardo HERNANDEZ [facility] CPT-46647 Level 3 Est. Patient 15:18:13 COAL TRIMMER Arie mcqueen MD [facility] CPT-32293 Level 3 Est. Patient 10:11:29 COAL TRIMMER Arie mcqueen MD [facility] CPT-50242 Level 3 Est. Patient 10:55:57 COAL TRIMMER Jono black DO [facility] CPT-56139 Level 3 Est. Patient 17:29:05 CDT Arie mcqueen MD [facility] Procedures Code Procedure Name Date Entry Date Standard Desc ription CPT-71126 Sono transvag pelvis non OB uterus ovari es cervix - XRAY USE ONLY 08:58:14 COAL TRIMMER CPT-29672 UA w micro - LAB USE ONLY 16:04:56 COAL TRIMMER 2015 CPT-91925 Wet Prep/GEN - LAB USE ONLY 16:04:56 COAL TRIMMER 20 08/10/29 CPT-32977 First Vx - Ix admin via ID I M or jet injects without counseling by physician 16:57:10 CDT CPT-02317 Fluzone Preservative Free Intramuscular Suspension 16:57:10 CDT CPT-J0696 Rocephin 1000 mg (Ceftriaxone) 11:49:23 CDT CPT-J1040 Depo Medrol 80 mg (Methyl Prednisolone A cetate) 11:49:23 CDT CPT-J1100 Decadron 8mg (Dexamethasone) 11:49:23 CDT 2 CPT-78121 Abx/Therapy Injection 11:49:23 CDT CPT-34964 Abx/Therapy Injection 11:49:23 CDT CPT-88058 Abd compl w upright 09:07:26 COAL TRIMMER CPT-89909 Ear Wash 16:12:47 COAL TRIMMER CPT-OV Office Visit 11:12:01 CDT CPT-OV Office Visit 15:30:23 CDT CPT-91366 Sono pelvis non OB uterus ovaries cervix 15:50:44 CDT CPT-94548 Hand comp min 3V 16:42:32 CDT CPT-81884 Abd compl w upright 12:17:01 CDT CPT-87651 Nexplanon Placement 15:07:39 COAL TRIMMER CPT-67956 Removal of IUD 15:07:39 COAL TRIMMER CPT-57455 TB Tubersol 12:09:32 CDT CPT-79853 TB Tubersol 13:55:43 CDT
--- OUTSIDE RECORDS SUMMARY | 2020-03-03 07:44 | XMS REPORT | Clinical Summary ---
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 PANTOPRAZO LE SODIUM 34806378591 Active Carline Ochoa RPT,RMA Active PREDNISONE 20 MG TAB 2 tabs daily for 3 days, 1 t ab daily for 3 days, 1/2 tab daily for 2 days PREDNISONE 51129042726 No Longer Active Brii Larson APRN Active PREDNISONE 20 MG TAB 1 tablet twice daily for 2 d ays, then 1 tablet once daily for 2 days PREDNISONE 85843555834 No Longer Active Brii Larson APRN Active FLONASE 50 MCG/ACT SUSP 1 spray each nostril twice d aily for allergies and runny nose until gone FLUTICASONE PROPIONATE Active Jono Gagnon DO Active PROMETHAZINE HCL 12.5 MG TABS 1 tablet by mouth every 6 hours as needed for nausea/vomiting PROMETHAZINE HCL 60796617696 No Longe r Active Jono W Kalin DO Active CITRATE OF MAGNESIA ORAL SOLN 1 bottle today for constipation 20 07/10/15 MAGNESIUM CITRATE 33564386860 No Longer Active Jono Gagnon DO Active ZOFRAN 4 MG ORAL TABS 1 TAB PO Q 6 HRS PRN NAUSEA 2014 ONDANSETRON HCL 35276703828 No Longer Active Brii Larson APRN A ctive LOMOTIL 2.5-0.025 MG TAB 1 to 2 four times a day as needed f or diarrhea DIPHENOXYLATE-ATROPINE 79829538175 No Longer Active January Larson SURGICAL PROCESSOR Active AMOXICILLIN 500 MG TABS 2 tabs twice a day for 10 days AMOXICILLIN 88570230396 No Longer Active Brii Larson APRN Acti ve NEXPLANON IMPL ETONOGESTREL IMPL 57190945557 Active Rich oRsales MD Active CYCLOBENZAPRINE HCL 10 MG TABS 1/2 - 1 tablet by mouth three times daily as needed for muscle spasm/pain CYCLOBENZAPRINE HCL 63531855212 No Longer Active Arie Casper MD Active LOMOTIL 2.5-0.025 MG TABS 1 to 2 four times a day as needed for diarrhea DIPHENOXYLATE-ATROPINE 13042263075 No Longer Active Fozia Casper MD Active MACROBID 100 MG CAP 1 cap by mouth twice daily NITROFURANTOIN MONOHYD MACRO 66735615684 No Longer Active Arie Casper MD Active ZYRTEC ALLERGY 10 MG CAPS 1 po qd CETIRIZINE HCL 33782890168 No Longer Active Arie Casper MD Active AZITHROMYCIN 250 MG TABS 2 po qd x 1 day, then 1 po qd x 4 days AZITHROMYCIN 61417990814 No Longer Active Jessica Heaton APRN Active PREDNISONE 20 MG TAB 2 tabs daily for 3 days, 1 t ab daily for 3 days, 1/2 tab daily for 2 days PREDNISONE 59078026120 No Longer Active Jessica Heaton SURGICAL PROCESSOR Active PROMETHAZINE HCL 25 MG TABS 1 four times a day as needed for vomiting PROMETHAZINE HCL 43132699638 No Longer Active Myrna Roberto MD Active BACTRIM DS 800-160 MG TABS 1 twice a day SULFAMETHOXAZOLE-TRIMETHOPRIM 35514514166 No Longer Active Myrna Roberto MD Active VICKS DAYQUIL SEVERE COLD/FLU TABS 1 tab every 6 hours prn 12/10 [id number] TABS 75272766952 No Longer Active Myrna leigh MD Active GUAIFENESIN-CODEINE 100-10 MG/5ML ORAL SYRP 2 tsp every 6 hours prn GUAIFENESIN-CODEINE 52689797467 No Longer Active Myrna Roberto MD Active NAPROXEN 500 MG TAB one tab PO BID NAPROXEN 332 52329629 No Longer Active Myrna Roberto MD Active AUGMENTIN 875-125 MG TAB 1 tab by mouth twice daily with food 20 08/12/16 AMOXICILLIN-POT CLAVULANATE 22486008522 No Longer Active Liliana Estrada MD PhD Active AMOXICILLIN 500 MG CAP 1 tab by mouth 3 times daily 08/12/16 AMOXICILLIN 06846366475 No Longer Active Liliana Estrada MD PhD Acti ve TESSALON PERLES 100 MG CAP 1 tablet by mouth 3 times daily 11/01 BENZONATATE 53531056701 No Longer Active Liliana Estrada MD PhD Active FLAGYL 500 MG TAB 1 tablet by mouth two times daily 07/11/29 METRONIDAZOLE 52194943542 No Longer Active Nilam Raida Active ZITHROMAX 250 MG TAB 2 po today, then 1 po q days 2-5 AZITHROMYCIN 11565516460 No Longer Active Arie Casper MD Acti ve VITAMINS 0.8 MG TABS take 1 tab po qday 08/08 [id number] 33479149174 No Longer Active Arie Casper MD Active IBUPROFEN 800 MG TABS take one po Q 8 hours IBU PROFEN 16986213808 No Longer Active Arie Casper MD Active [facility] TUSSIN COUGH/COLD CF 5-10-100 MG/5ML LIQD 2 teaspoons ev eliud 4 hours [id number] 73909931691 No Longer Active Blaine Casper MD Active COMTREX COLD/COUGH DAY/NITE MS 5-2-10-325 MG MISC 2 caps deja ry 4 hours [id number] 15503064433 No Longer Active Landon Casper MD Active CHLORASEPTIC MAX SORE THROAT 15-10 MG LOZG 1 every 2 hours prn 2 BENZOCAINE-MENTHOL 27301796055 No Longer Active Arie Marcelo Active PREDNISONE 20 MG TAB 2 tabs daily for 3 days, 1 t ab daily for 3 days, 1/2 tab daily for 2 days PREDNISONE 51425192126 No Longer Active Jose Zhong MD Active AZITHROMYCIN 250 MG TABS 2 po qd x 1 day, then 1 po qd x 4 days AZITHROMYCIN 34301422185 No Longer Active Jose Zhong MD Active ZOFRAN ODT 4 MG TBDP 1 po q6hr PRN Nausea ONDAN SETRON 52713477328 No Longer Active Rich Rosales MD Active ZOFRAN 4 MG TABS 1 tablet every 4 hours ONDANSE JERRELL HCL 37280226229 No Longer Active Rich Rosales MD Active MUCINEX 600 MG QQ78M-MLH Take 1-2 tablets every 12 hours GUAIFENESIN 44793369307 No Longer Active Rich Rosales MD Activ e BACTRIM 400-80 MG TABS take one po BID SULFAMETHOXAZOLE-TRIMETHOPRIM 26969189606 No Longer Active Abelardo HERNANDEZ Active AZITHROMYCIN 500 MG TABS 1 PO q day x 6 days AZ ITHROMYCIN 21252533690 No Longer Active Tin HERNANDEZ Active ZITHROMAX 250 MG TAB 2 po today, then 1 po q days 2-5 AZITHROMYCIN 98381718514 No Longer Active Arie Casper MD Acti ve ZITHROMAX 250 MG TAB 2 po today, then 1 po q days 2-5 AZITHROMYCIN 20378974241 No Longer Active Arie Casper MD Acti ve AMOXICILLIN 500 MG CAP 1 tab by mouth 3 times daily 09/23/20 AMOXICILLIN 84713988075 No Longer Active Arie Casper MD Acti ve BACTRIM DS 800-160 MG TAB 1 tab by mouth twice daily 2 TRIMETHOPRIM-SULFAMETHOXAZOLE 64794306059 No Longer Active Arie Casper MD Active AMOXICILLIN 500 MG TABS take 1 tab po TID AMOXI CILLIN 66633340120 No Longer Active Arie Casper MD Active BACTRIM DS 800-160 MG TAB 1 tab by mouth twice daily 2 BACTRIM DS 800-160 MG TAB 112976 TRIMETHOPRIM-SULFAMETHOXAZOLE Inac tive MUCINEX 600 MG [id number] Take 1-2 tablets every 12 hours MUCINEX 600 MG [id number] GUAIFENESIN Inactive ZOFRAN 4 MG TABS 1 tablet every 4 hours ZOFRAN 4 MG TABS 047018 ONDANSETRON HCL Inactive ZOFRAN ODT 4 MG TBDP 1 po q6hr PRN Nausea ZOFRAN ODT 4 MG TBDP 737394 ONDANSETRON Inactive CHLORASEPTIC MAX SORE THROAT 15-10 MG LOZG 1 every 2 hours prn 2 /04/30 CHLORASEPTIC MAX SORE THROAT 15-10 MG LOZG BENZO ARINA-MENTHOL Inactive COMTREX COLD/COUGH DAY/NITE MS 5-2-10-325 MG MISC 2 caps deja ry 4 hours COMTREX COLD/COUGH DAY/NITE MS 5-2-10-325 MG MIS C LCBVAURIE-TEC-FL-APAP Inactive [facility] TUSSIN COUGH/COLD CF 5-10-100 MG/5ML LIQD 2 teaspoons ev eliud 4 hours [facility] TUSSIN COUGH/COLD CF 5-10-100 MG/5ML LIQD [id number] Inactive IBUPROFEN 800 MG TABS take one po Q 8 hours IBUPROFEN 800 MG TABS IBUPROFEN Inactive VITAMINS 0.8 MG TABS take 1 tab po qday 08/08 VITAMINS 0.8 MG TABS [id number] Inactive TESSALON PERLES 100 MG CAP 1 tablet by mouth 3 times daily 11/01 TESSALON PERLES 100 MG CAP 174718 BENZONATATE Inact zaid AMOXICILLIN 500 MG CAP 1 tab by mouth 3 times daily 08/12/16 AMOXICILLIN 500 MG CAP 801401 AMOXICILLIN Inactive GUAIFENESIN-CODEINE 100-10 MG/5ML ORAL SYRP 2 tsp every 6 hours prn GUAIFENESIN-CODEINE 100-10 MG/5ML ORAL SYRP 289291 GUAIFENESIN-CODEINE Inactive VICKS DAYQUIL SEVERE COLD/FLU TABS 1 tab every 6 hours prn 12/10 VICKS DAYQUIL SEVERE COLD/FLU TABS PHENYLEPHRINE -DM-GG-APAP TABS Inactive BACTRIM DS 800-160 MG TABS 1 twice a day BACTRIM DS 800- 160 MG TABS 535444 SULFAMETHOXAZOLE-TRIMETHOPRIM Inactive PROMETHAZINE HCL 25 MG TABS 1 four times a day as needed for vomiting PROMETHAZINE HCL 25 MG TABS 879651 PROMETHAZINE HCL Inactive ZYRTEC ALLERGY 10 MG CAPS 1 po qd ZY RTEC ALLERGY 10 MG CAPS CETIRIZINE HCL Inactive MACROBID 100 MG CAP 1 cap by mouth twice daily MACROBID 100 MG CAP 6243636 NITROFURANTOIN MONOHYD MACRO Inactive LOMOTIL 2.5-0.025 MG TABS 1 to 2 four times a day as needed for diarrhea LOMOTIL 2.5-0.025 MG TABS 4389144 DIPHENOXYLATE-A TROPINE Inactive CYCLOBENZAPRINE HCL 10 MG TABS 1/2 - 1 tablet by mouth three times daily as needed for muscle spasm/pain CYCLOBENZAP RINE HCL 10 MG TABS 067702 CYCLOBENZAPRINE HCL Inactive AMOXICILLIN 500 MG TABS 2 tabs twice a day for 10 days AMOXICILLIN 500 MG TABS 964423 AMOXICILLIN Inactive LOMOTIL 2.5-0.025 MG TAB 1 to 2 four times a day as needed f or diarrhea LOMOTIL 2.5-0.025 MG TAB 4008387 DIPHENOXYLATE-AT ROPINE Inactive ZOFRAN 4 MG ORAL TABS 1 TAB PO Q 6 HRS PRN NAUSEA 2014 ZOFRAN 4 MG ORAL TABS 643667 ONDANSETRON HCL Inactive CITRATE OF MAGNESIA ORAL SOLN 1 bottle today for constipation 20 07/10/15 CITRATE OF MAGNESIA ORAL SOLN 8866345 MAGNESIUM CITRATE Inactive PROMETHAZINE HCL 12.5 MG TABS 1 tablet by mouth every 6 hours as needed for nausea/vomiting PROMETHAZINE HCL 12.5 MG TABS 907296 PROMETHAZINE HCL Inactive PREDNISONE 20 MG TAB 1 tablet twice daily for 2 d ays, then 1 tablet once daily for 2 days PREDNISONE 20 MG TAB 679276 PREDNISONE Inac tive AMOXICILLIN 500 MG TABS take 1 tab po TID AMOXICILLIN 500 MG TABS 212975 AMOXICILLIN Inactive AMOXICILLIN 500 MG CAP 1 tab by mouth 3 times daily 20 09/23/20 AMOXICILLIN 500 MG CAP 209953 AMOXICILLIN Inactive ZITHROMAX 250 MG TAB 2 po today, then 1 po q days 2-5 ZITHROMAX 250 MG TAB 3700099 AZITHROMYCIN Inactive ZITHROMAX 250 MG TAB 2 po today, then 1 po q days 2-5 ZITHROMAX 250 MG TAB 4922249 AZITHROMYCIN Inactive AZITHROMYCIN 500 MG TABS 1 PO q day x 6 days 3 AZITHROMYCIN 500 MG TABS 4157904 AZITHROMYCIN Inactive BACTRIM 400-80 MG TABS take one po BID BA CTRIM 400-80 MG TABS 925352 SULFAMETHOXAZOLE-TRIMETHOPRIM Inactive AZITHROMYCIN 250 MG TABS 2 po qd x 1 day, then 1 po qd x 4 days AZITHROMYCIN 250 MG TABS 0411537 AZITHROMYCIN Inactiv e PREDNISONE 20 MG TAB 2 tabs daily for 3 days, 1 t ab daily for 3 days, 1/2 tab daily for 2 days PREDNISONE 20 MG TAB 832938 PREDNISON E Inactive ZITHROMAX 250 MG TAB 2 po today, then 1 po q days 2-5 ZITHROMAX 250 MG TAB 8271674 AZITHROMYCIN Inactive FLAGYL 500 MG TAB 1 tablet by mouth two times daily 07/11/29 FLAGYL 500 MG TAB 585209 METRONIDAZOLE Inactive AUGMENTIN 875-125 MG TAB 1 tab by mouth twice daily with food 20 08/12/16 AUGMENTIN 875-125 MG TAB 753453 AMOXICILLIN-POT CLAVULA ANGELO Inactive NAPROXEN 500 MG TAB one tab PO BID NAPROXEN 500 MG TAB 435118 NAPROXEN Inactive PREDNISONE 20 MG TAB 2 tabs daily for 3 days, 1 t ab daily for 3 days, 1/2 tab daily for 2 days PREDNISONE 20 MG TAB 323382 PREDNISON E Inactive AZITHROMYCIN 250 MG TABS 2 po qd x 1 day, then 1 po qd x 4 days AZITHROMYCIN 250 MG TABS 2859418 AZITHROMYCIN Inactiv e PREDNISONE 20 MG TAB 2 tabs daily for 3 days, 1 t ab daily for 3 days, 1/2 tab daily for 2 days PREDNISONE 20 MG TAB 510882 PREDNISON E Inactive Advance Directives Directive Description [...] Panel - Chemistry sodium, serum 136 mmol/L 833-003 1900/04/26 carbon dioxide, venous blood 29.9 mmol/L 21.0-32 [...] - Chem istry sodium, serum 139 mmol/L 918-402 8786/12/15 carbon dioxide, venous blood 30.2 mmol/L 21.0-32 [...] urine, semiquantitative 5.5 5.0-8.5 specific gravity, urine 1.025 1.000-1.030 appearance, urine Clear Clear urine color Yellow Colorless;Lightyellow;St raw;Yellow urobilinogen, urine, semiquantitative (dipstick) 0.2 Normal leukocyte [...] Negative Encounters Code Encounter Date Provider Facility CPT-43189 Level 3 Est. Patient 16:40:54 CDT Jose Zhong MD [facility] CPT-53441 Level 2 Est. Patient 13:01:13 CDT Steve SURGICAL PROCESSOR [facility] CPT-50110 Level 3 Est. Patient 11:55:30 [employer] Jono black DO [facility] CPT-45591 Level 3 Est. Patient 09:52:36 [employer] DIRECTOR Steve CABRERA [facility] CPT-10779 Level 3 Est. Patient 16:25:33 [employer] DIRECTOR Rich Rosales MD [facility] CPT-08842 Level 3 Est. Patient 20:33:55 CDT Arie mcqueen MD [facility] CPT-00334 Level 3 Est. Patient 14:18:20 CDT Rich Rosales MD [facility] CPT-01650 Level 4 Est. Patient 09:34:31 CDT Arie mcqueen MD [facility] CPT-06429 Level 3 Est. Patient 09:08:55 [employer] DIRECTOR Liliana vincent MD PhD [facility] CPT-01878 Level 3 Est. Patient 16:44:07 [employer] DIRECTOR Arie mcqueen MD [facility] CPT-81478 Level 3 Est. Patient 10:44:27 CDT Arie mcqueen MD [facility] CPT-61942 Level 3 Est. Patient 08:55:41 CDT Jose Zhong MD [facility] CPT-85638 Level 3 Est. Patient 18:37:31 CDT Liliana vincent MD PhD [facility] CPT-88584 Level 3 Est. Patient 14:28:23 CDT Abelardo HERNANDEZ [facility] CPT-97051 Level 3 Est. Patient 15:18:13 [employer] DIRECTOR Arie mcqueen MD [facility] CPT-05052 Level 3 Est. Patient 10:11:29 [employer]LE[employer] B[employer] DIRECTOR Arie mcqueen MD [facility] CPT-62311 Level 3 Est. Patient 10:55:57 [employer]LE[employer] B[employer] DIRECTOR Jono black DO [facility] CPT-88460 Level 3 Est. Patient 17:29:05 CDT Arie mcqueen MD [facility] Procedures Code Procedure Name Date Entry Date Standard Desc ription CPT-35732 Abd compl w upright 09:07:26 [employer] CPT-41383 Ear Wash 16:12:47 [employer] DIRECT[employer] CPT-OV Office Visit 11:12:01 CDT CPT-OV Office Visit 15:30:23 CDT CPT-05077 Sono pelvis non OB uterus ovaries cervix 15:50:44 CDT CPT-50138 Hand comp min 3V 16:42:32 CDT CPT-80111 Abd compl w upright 12:17:01 CDT CPT-40499 Nexplanon Placement 15:07:39 [employer] CPT-17304 Removal of IUD 15:07:39 [employer] DIRECT[employer] CPT-29238 TB Tubersol 12:09:32 CDT CPT-90722 TB Tubersol 13:55:43 CDT
--- OUTSIDE RECORDS SUMMARY | 2020-03-03 07:45 | XMS REPORT | Clinical Summary ---
Author Author Admin, Diamante Marcelo Organization [employer] Address Unknown Phone Unavailable Allergies, Adverse Reactions, [...] cute pharyngitis Nausea 787.02 Active Brii Larson RISK ANALYST Nausea alone URI 465.9 Active Jono Gagnon [...] Anxiety with depression 300.4 Active Glenn Larson RISK ANALYST Dysthymic disorder URI 465.9 Active Jono Gagnon DO Acu te upper respiratory infections of unspecified site Vaginal bleeding 623.8 Resolved Jose Zhong MD Other specified noninflammatory disorders of vagina High risk sexual behavior V69.2 Active Arie Casper MD High-risk sexual behavior GERD 530.81 Active Arie Casper MD Esophageal reflux Encounter for surveillance of implantable subdermal contraceptiv e Active Brii Neo RISK ANALYST Vaginal bleeding 623.8 Active Arie Casper MD Other specified noninflammatory disorders of vagina Influenza like illness 487.1 Active Jose Mcwilliams MD Influenza with other respiratory manifestations FH BREAST CANCER ICD-V16.3 Inactive Jose Marcelo FH COLON CANCER ICD-V16.0 Inactive Jose Zhong MD FH DIABETES ICD-V18.0 Inactive Jose Zhong MD 201 01/29/08 CYSTITIS ICD-595.9 Inactive Liliana Estrada MD Ph D SINUSITIS ICD-473.9 Inactive Liilana Estrada MD Ph D IUD removal ICD-V25.42 [...] Vaginal bleeding ICD-623.8 Inactive Jose Mcwilliams MD ACUTE FRONTAL SINUSITIS ICD-461.1 Inactive Meghan Estrada MD PhD Medication List Medication Instructions Start Date Stop Date Generic Name NDC Status Provider Patient Instruction TAMIFLU 75 MG ORAL CAPSULE 1 po BID x 5 days 0 OSELTAMIVIR PHOSPHATE 23220135328 Active Jose Zhong MD Active CHERATUSSIN AC 100-10 MG/5ML ORAL SYRUP 1 tsp by mouth every 4 hours as needed for cough GUAIFENESIN-CODEINE 27731529532 Active Blaine Casper MD Active ZITHROMAX Z-EMIL 250 MG ORAL TABLET 2 today, then 1 daily for 4 d ays AZITHROMYCIN 03031227291 No Longer Active Arie Casper MD Active PROTONIX 40 MG ORAL TABLET DELAYED RELEASE 1 po q a.m. PANTOPRAZOLE SODIUM 32010554272 No Longer Active Arie Casper MD Active BACTRIM DS 800-160 MG ORAL TABLET 1 tab by mouth twice daily 201 05/02/30 TRIMETHOPRIM-SULFAMETHOXAZOLE 00851901721 No Longer Active R [facility] Ty Active NEXPLANON IMPLANT right arm subcutaneously ETONOGESTREL IMPL 39895070558 No Longer Active Brii Larson APRN Acti ve TUSSIONEX PENNKINETIC ER 10-8 MG/5ML ORAL SUSPENSION E XTENDED RELEASE 5ml po q12hr PRN Cough HYDROCOD POLST-CHLORPHEN POLST 5 2763719994 No Longer Active Brii Larson APRN Active CETIRIZINE HCL 10 MG ORAL TABLET 1 po qd PRN Allergies CETIRIZINE HCL 22411130444 No Longer Active Brii Larson APRN Ac tive PREDNISONE 20 MG ORAL TABLET 2 tabs daily for 3 days, 1 tab daily for 3 days, 1/2 tab daily for 2 days PREDNISONE 14844835927 No Longer Active Arie Casper MD Active LOMOTIL 2.5-0.025 MG ORAL TABLET 1 tab po four times a day as needed for diarrhea DIPHENOXYLATE-ATROPINE 91328744003 No Lo nger Active Arie Casper MD Active ZOLOFT 50 MG ORAL TABLET 1 tablet by mouth daily 12/08 SERTRALINE HCL 92809405527 No Longer Active Arie Casper MD Ac tive NAPROXEN 500 MG ORAL TABLET Take 1 tab BID NAPR OXEN 88856875656 No Longer Active Arie Casper MD Active CEFDINIR 300 MG ORAL CAPSULE 1 po BID x 10 days CEFDINIR 79306980770 No Longer Active Brii Larson APRN Active PREDNISONE 20 MG ORAL TABLET 1 tablet daily for airway inflammat ion PREDNISONE 80948365621 No Longer Active Brii Larson APRN Active CEFDINIR 300 MG ORAL CAPSULE 1 po BID x 10 days CEFDINIR 84372833671 No Longer Active Jono Gagnon DO Active FLONASE 50 MCG/ACT NASAL SUSPENSION 1 spray each nostr il twice daily for allergies and runny nose until gone FLUT ICASONE PROPIONATE 00676202872 No Longer Active Jono Gagnon DO Active ALPRAZOLAM 0.25 MG ORAL TABLET 1 tablet by mouth every 8 hours as needed for stress ALPRAZOLAM 31694769792 No Longer Active Jono Gagnon DO Active ZITHROMAX Z-EMIL 250 MG ORAL TABLET 2 today, then 1 daily for 4 d ays AZITHROMYCIN 06176729276 No Longer Active Arie Casper MD Active PREDNISONE 20 MG ORAL TABLET 2 tabs daily for 3 days, 1 tab daily for 3 days, 1/2 tab daily for 2 days PREDNISONE 43851722349 No Longer Active Brii Larson APRN Active PREDNISONE 20 MG ORAL TABLET 1 tablet twice daily for 2 days, then 1 tablet once daily for 2 days PREDNISONE 74228891584 No Longer Active Brii Larson APRN Active PROMETHAZINE HCL 12.5 MG ORAL TABLET 1 tablet by mouth every 6 hours as needed for nausea/vomiting PROMETHAZINE HCL 57521783350 No L onger Active Jono Gagnon DO Active CITRATE OF MAGNESIA ORAL SOLUTION 1 bottle today for constipatio n MAGNESIUM CITRATE 53433700586 No Longer Active Jono Gagnon DO Active ZOFRAN 4 MG ORAL TABLET 1 TAB PO Q 6 HRS PRN NAUSEA 20 07/10/15 ONDANSETRON HCL 11211673209 No Longer Active Brii Larson APRN A ctive LOMOTIL 2.5-0.025 MG ORAL TABLET 1 to 2 four times a day as needed for diarrhea DIPHENOXYLATE-ATROPINE 22806101379 No Longer Active January Larson APRN Active AMOXICILLIN 500 MG ORAL TABLET 2 tabs twice a day for 10 days 07/09/11 AMOXICILLIN 25223817594 No Longer Active Brii Larson APRN Active CYCLOBENZAPRINE HCL 10 MG ORAL TABLET 1/2 - 1 tablet b y mouth three times daily as needed for muscle spasm/pain CYCLOBENZAPRINE HCL 09383799536 No Longer Active Arie Casper MD Active LOMOTIL 2.5-0.025 MG ORAL TABLET 1 to 2 four times a day as needed for diarrhea DIPHENOXYLATE-ATROPINE 66801562184 No Longer Active Foiza Casper MD Active MACROBID 100 MG ORAL CAPSULE 1 cap by mouth twice daily NITROFURANTOIN MONOHYD MACRO 19843685224 No Longer Active Arie Casper MD Active ZYRTEC ALLERGY 10 MG ORAL CAPSULE 1 po qd CE TIRIZINE HCL 66654132047 No Longer Active Arie Casper MD Active AZITHROMYCIN 250 MG ORAL TABLET 2 po qd x 1 day, then 1 po q d x 4 days AZITHROMYCIN 67943962560 No Longer Active Jessica salgado APRN Active PREDNISONE 20 MG ORAL TABLET 2 tabs daily for 3 days, 1 tab daily for 3 days, 1/2 tab daily for 2 days PREDNISONE 88206757917 No Longer Active Jessica Heaton APRN Active PROMETHAZINE HCL 25 MG ORAL TABLET 1 four times a day as nee ded for vomiting PROMETHAZINE HCL 30624174327 No Longer Active Myrna Roberto MD Active BACTRIM DS 800-160 MG ORAL TABLET 1 twice a day 05/30 SULFAMETHOXAZOLE-TRIMETHOPRIM 86456631834 No Longer Active Myrna Roberto MD Active VICKS DAYQUIL SEVERE COLD/FLU TABLET 1 tab every 6 hours prn 201 02/22/17 [id number] TABS 91700466312 No Longer Active K fany Roberto MD Active GUAIFENESIN-CODEINE 100-10 MG/5ML ORAL SYRUP 2 tsp every 6 hours prn GUAIFENESIN-CODEINE 71156709002 No Longer Active Myrna Roberto MD Active NAPROXEN 500 MG ORAL TABLET one tab PO BID NAPR OXEN 98794761191 No Longer Active Myrna Roberto MD Active AUGMENTIN 875-125 MG ORAL TABLET 1 tab by mouth twice daily with food AMOXICILLIN-POT CLAVULANATE 07867558689 No Longer Act zaid Liliana Estrada MD PhD Active AMOXICILLIN 500 MG ORAL CAPSULE 1 tab by mouth 3 times daily 201 02/21/05 AMOXICILLIN 18435708919 No Longer Active Liliana Estrada MD PhD Active TESSALON PERLES 100 MG ORAL CAPSULE 1 tablet by mouth 3 times da cory BENZONATATE 58430184380 No Longer Active Liliana Estrada MD PhD Active FLAGYL 500 MG ORAL TABLET 1 tablet by mouth two times daily 2014 METRONIDAZOLE 75003417468 No Longer Active Nilam Doran tive ZITHROMAX 250 MG ORAL TABLET 2 po today, then 1 po q days 2-5 20 06/08/16 AZITHROMYCIN 33163550106 No Longer Active Arie Casper MD Active VITAMINS 0.8 MG ORAL TABLET take 1 tab po qday [id number] 38737707497 No Longer Active Arie Casper MD Active IBUPROFEN 800 MG ORAL TABLET take one po Q 8 hours 201 02/01/16 IBUPROFEN 90947873652 No Longer Active Arie Casper MD Acti ve [facility] TUSSIN COUGH/COLD CF 5-10-100 MG/5ML ORAL LIQUID 2 teasp oons every 4 hours [id number] 19577092589 No Longer Active Blaine Casper MD Active COMTREX COLD/COUGH DAY/NITE MS 5-2-10-325 MG ORAL 2 caps deja ry 4 hours [id number] 80423121147 No Longer Active Landon Casper MD Active CHLORASEPTIC MAX SORE THROAT 15-10 MG MOUTH/THROAT LOZENGE 1 every 2 hours prn BENZOCAINE-MENTHOL 23386262756 No Longer Active Arie Casper MD Active PREDNISONE 20 MG ORAL TABLET 2 tabs daily for 3 days, 1 tab daily for 3 days, 1/2 tab daily for 2 days PREDNISONE 63375153317 No Longer Active Jose Zhong MD Active AZITHROMYCIN 250 MG ORAL TABLET 2 po qd x 1 day, then 1 po q d x 4 days AZITHROMYCIN 20559831892 No Longer Active Jose Mcwilliams MD Active ZOFRAN ODT 4 MG ORAL TABLET DISINTEGRATING 1 po q6hr PRN Nausea ONDANSETRON 12650498756 No Longer Active Rich Rosales MD Active ZOFRAN 4 MG ORAL TABLET 1 tablet every 4 hours ONDANSETRON HCL 35580629771 No Longer Active Rich Rosales MD Activ e MUCINEX 600 MG ORAL TABLET EXTENDED RELEASE 12 HOUR Ta ke 1-2 tablets every 12 hours GUAIFENESIN 41122379803 No Longer Active Rich Rosales MD Active BACTRIM 400-80 MG ORAL TABLET take one po BID SULFAMETHOXAZOLE-TRIMETHOPRIM 17377704946 No Longer Active Demie Ahlquist PA Active AZITHROMYCIN 500 MG ORAL TABLET 1 PO q day x 6 days 03/02/23 AZITHROMYCIN 65069381129 No Longer Active Tin HERNANDEZ Activ e ZITHROMAX 250 MG ORAL TABLET 2 po today, then 1 po q days 2-5 20 10/03/08 AZITHROMYCIN 15296830140 No Longer Active Arie Casper MD Active ZITHROMAX 250 MG ORAL TABLET 2 po today, then 1 po q days 2-5 20 09/23/25 AZITHROMYCIN 77651968248 No Longer Active Arie Casper MD Active AMOXICILLIN 500 MG ORAL CAPSULE 1 tab by mouth 3 times daily 201 11/24/09 AMOXICILLIN 36119684685 No Longer Active Arie Casper MD Active BACTRIM DS 800-160 MG ORAL TABLET 1 tab by mouth twice daily 201 11/03/14 TRIMETHOPRIM-SULFAMETHOXAZOLE 40595150559 No Longer Active Fozia Casper MD Active AMOXICILLIN 500 MG ORAL TABLET take 1 tab po TID 08/05 AMOXICILLIN 44033488878 No Longer Active Arie Casper MD Acti ve BACTRIM DS 800-160 MG ORAL TABLET 1 tab by mouth twice daily 201 11/03/14 BACTRIM DS 800-160 MG ORAL TABLET 640220 TRIMETHOPRIM-SULFAMETHOXAZOLE Inactive MUCINEX 600 MG ORAL TABLET EXTENDED RELEASE 12 HOUR Ta ke 1-2 tablets every 12 hours MUCINEX 600 MG ORAL TABLET EXTENDED RELEA SE 12 HOUR GUAIFENESIN Inactive ZOFRAN 4 MG ORAL TABLET 1 tablet every 4 hours ZOFRAN 4 MG ORAL TABLET 072037 ONDANSETRON HCL Inactive ZOFRAN ODT 4 MG ORAL TABLET DISINTEGRATING 1 po q6hr PRN Nausea ZOFRAN ODT 4 MG ORAL TABLET DISINTEGRATING 330775 ONDAN SETRON Inactive CHLORASEPTIC MAX SORE THROAT 15-10 MG MOUTH/THROAT LOZENGE 1 every 2 hours prn CHLORASEPTIC MAX SORE THROAT 15-10 MG MOUTH/THROAT LOZENGE BENZOCAINE-MENTHOL Inactive COMTREX COLD/COUGH DAY/NITE MS 5-2-10-325 MG ORAL 2 caps deja ry 4 hours COMTREX COLD/COUGH DAY/NITE MS 5-2-10-325 MG ORA L [id number] Inactive [facility] TUSSIN COUGH/COLD CF 5-10-100 MG/5ML ORAL LIQUID 2 teasp oons every 4 hours [facility] TUSSIN COUGH/COLD CF 5-10-100 MG/5ML ORAL LI QUID [id number] Inactive IBUPROFEN 800 MG ORAL TABLET take one po Q 8 hours 201 02/01/16 IBUPROFEN 800 MG ORAL TABLET 553974 IBUPROFEN Inactive VITAMINS 0.8 MG ORAL TABLET take 1 tab po qday VITAMINS 0.8 MG ORAL TABLET [id number] E-FA Inactive TESSALON PERLES 100 MG ORAL CAPSULE 1 tablet by mouth 3 times da cory TESSALON PERLES 100 MG ORAL CAPSULE 020426 BENZONATATE Inactive AMOXICILLIN 500 MG ORAL CAPSULE 1 tab by mouth 3 times daily 201 02/21/05 AMOXICILLIN 500 MG ORAL CAPSULE 909145 AMOXICILLIN Inactive GUAIFENESIN-CODEINE 100-10 MG/5ML ORAL SYRUP 2 tsp every 6 hours prn GUAIFENESIN-CODEINE 100-10 MG/5ML ORAL SYRUP 390016 GUAIFENESIN-CODEINE Inactive VICKS DAYQUIL SEVERE COLD/FLU TABLET 1 tab every 6 hours prn 201 02/22/17 VICKS DAYQUIL SEVERE COLD/FLU TABLET PHENYLEPHRI OS-RF-[id number]-APAP TABS Inactive BACTRIM DS 800-160 MG ORAL TABLET 1 twice a day 05/30 BACTRIM DS 800-160 MG ORAL TABLET 168646 SULFAMETHOXAZOLE-TRIMETHOPRIM Inactiv e PROMETHAZINE HCL 25 MG ORAL TABLET 1 four times a day as nee ded for vomiting PROMETHAZINE HCL 25 MG ORAL TABLET 905217 PROMETHAZINE HCL Inactive ZYRTEC ALLERGY 10 MG ORAL CAPSULE 1 po qd ZYRTEC ALLERGY 10 MG ORAL CAPSULE CETIRIZINE HCL Inactive MACROBID 100 MG ORAL CAPSULE 1 cap by mouth twice daily MACROBID 100 MG ORAL CAPSULE 4838318 NITROFURANTOIN MONOHYD MACRO In active LOMOTIL 2.5-0.025 MG ORAL TABLET 1 to 2 four times a day as needed for diarrhea LOMOTIL 2.5-0.025 MG ORAL TABLET 9086098 DIPHENOXYLATE-ATROPINE Inactive CYCLOBENZAPRINE HCL 10 MG ORAL TABLET 1/2 - 1 tablet b y mouth three times daily as needed for muscle spasm/pain CYCLOBEN ZAPRINE HCL 10 MG ORAL TABLET 168734 CYCLOBENZAPRINE HCL Inactive AMOXICILLIN 500 MG ORAL TABLET 2 tabs twice a day for 10 days 07/09/11 AMOXICILLIN 500 MG ORAL TABLET 007133 AMOXICILLIN I nactive LOMOTIL 2.5-0.025 MG ORAL TABLET 1 to 2 four times a day as needed for diarrhea LOMOTIL 2.5-0.025 MG ORAL TABLET 3565252 DIPHENOXYLATE-ATROPINE Inactive ZOFRAN 4 MG ORAL TABLET 1 TAB PO Q 6 HRS PRN NAUSEA 07/10/15 ZOFRAN 4 MG ORAL TABLET 856996 ONDANSETRON HCL Inactive CITRATE OF MAGNESIA ORAL SOLUTION 1 bottle today for constipatio n CITRATE OF MAGNESIA ORAL SOLUTION 6309175 MAGNESIUM CITR ATE Inactive PROMETHAZINE HCL 12.5 MG ORAL TABLET 1 tablet by mouth every 6 hours as needed for nausea/vomiting PROMETHAZINE HCL 12.5 MG ORA L TABLET 637088 PROMETHAZINE HCL Inactive PREDNISONE 20 MG ORAL TABLET 1 tablet twice daily for 2 days, then 1 tablet once daily for 2 days PREDNISONE 20 MG ORAL TABLET 061573 PREDNISONE Inactive ALPRAZOLAM 0.25 MG ORAL TABLET 1 tablet by mouth every 8 hours as needed for stress ALPRAZOLAM 0.25 MG ORAL TABLET 735823 ALPRA ZOLAM Inactive FLONASE 50 MCG/ACT NASAL SUSPENSION 1 spray each nostr il twice daily for allergies and runny nose until gone FLON ASE 50 MCG/ACT NASAL SUSPENSION 4260530 FLUTICASONE PROPIONATE Inactive PREDNISONE 20 MG ORAL TABLET 1 tablet daily for airway inflammat ion PREDNISONE 20 MG ORAL TABLET 715302 PREDNISONE [place] ctive NAPROXEN 500 MG ORAL TABLET Take 1 tab BID NAPROXEN 500 MG ORAL TABLET 017562 NAPROXEN Inactive ZOLOFT 50 MG ORAL TABLET 1 tablet by mouth daily 12/08 ZOLOFT 50 MG ORAL TABLET 218110 SERTRALINE HCL Inactive LOMOTIL 2.5-0.025 MG ORAL TABLET 1 tab po four times a day as needed for diarrhea LOMOTIL 2.5-0.025 MG ORAL TABLET 3563960 DIPHENOXYLATE-ATROPINE Inactive CETIRIZINE HCL 10 MG ORAL TABLET 1 po qd PRN Allergies CETIRIZINE HCL 10 MG ORAL TABLET 1457922 CETIRIZINE HCL Inactiv e TUSSIONEX PENNKINETIC ER 10-8 MG/5ML ORAL SUSPENSION E XTENDED RELEASE 5ml po q12hr PRN Cough TUSSIONEX PENNKINETI C ER 10-8 MG/5ML ORAL SUSPENSION EXTENDED RELEASE HYDROCOD POLST-CHLORPHEN POLST I nactive NEXPLANON IMPLANT right arm subcutaneously NEXPLANON IMPLANT ETONOGESTREL IMPL Inactive PROTONIX 40 MG ORAL TABLET DELAYED RELEASE 1 po q a.m. PROTONIX 40 MG ORAL TABLET DELAYED RELEASE 933737 PANTOPRAZOLE SODI UM Inactive AMOXICILLIN 500 MG ORAL TABLET take 1 tab po TID 08/05 AMOXICILLIN 500 MG ORAL TABLET 048342 AMOXICILLIN Inactive AMOXICILLIN 500 MG ORAL CAPSULE 1 tab by mouth 3 times daily 201 11/24/09 AMOXICILLIN 500 MG ORAL CAPSULE 749857 AMOXICILLIN Inactive ZITHROMAX 250 MG ORAL TABLET 2 po today, then 1 po q days 2-5 20 09/23/25 ZITHROMAX 250 MG ORAL TABLET 040748 AZITHROMYCIN [place] ctive ZITHROMAX 250 MG ORAL TABLET 2 po today, then 1 po q days 2-5 20 10/03/08 ZITHROMAX 250 MG ORAL TABLET 662093 AZITHROMYCIN [place] ctive AZITHROMYCIN 500 MG ORAL TABLET 1 PO q day x 6 days 20 03/02/23 AZITHROMYCIN 500 MG ORAL TABLET 3524607 AZITHROMYCIN Inactive BACTRIM 400-80 MG ORAL TABLET take one po BID BACTRIM 400- 80 MG ORAL TABLET 508579 SULFAMETHOXAZOLE-TRIMETHOPRIM Inactive AZITHROMYCIN 250 MG ORAL TABLET 2 po qd x 1 day, then 1 po q d x 4 days AZITHROMYCIN 250 MG ORAL TABLET 344004 AZITHROMY ALLISON Inactive PREDNISONE 20 MG ORAL TABLET 2 tabs daily for 3 days, 1 tab daily for 3 days, 1/2 tab daily for 2 days PREDNISONE 20 MG ORAL T ABLET 160057 PREDNISONE Inactive ZITHROMAX 250 MG ORAL TABLET 2 po today, then 1 po q days 2-5 20 06/08/16 ZITHROMAX 250 MG ORAL TABLET 295326 AZITHROMYCIN [place] ctive FLAGYL 500 MG ORAL TABLET 1 tablet by mouth two times daily 2014 FLAGYL 500 MG ORAL TABLET 344777 METRONIDAZOLE Inacti ve AUGMENTIN 875-125 MG ORAL TABLET 1 tab by mouth twice daily with food AUGMENTIN 875-125 MG ORAL TABLET 542212 AMOXICIL ELSA-POT CLAVULANATE Inactive NAPROXEN 500 MG ORAL TABLET one tab PO BID NAPROXEN 500 MG ORAL TABLET 803528 NAPROXEN Inactive PREDNISONE 20 MG ORAL TABLET 2 tabs daily for 3 days, 1 tab daily for 3 days, 1/2 tab daily for 2 days PREDNISONE 20 MG ORAL T ABLET 712285 PREDNISONE Inactive AZITHROMYCIN 250 MG ORAL TABLET 2 po qd x 1 day, then 1 po q d x 4 days AZITHROMYCIN 250 MG ORAL TABLET 516239 AZITHROMY ALLISON Inactive PREDNISONE 20 MG ORAL TABLET 2 tabs daily for 3 days, 1 tab daily for 3 days, 1/2 tab daily for 2 days PREDNISONE 20 MG ORAL T ABLET 317763 PREDNISONE Inactive ZITHROMAX Z-EMIL 250 MG ORAL TABLET 2 today, then 1 daily for 4 d ays ZITHROMAX Z-EMIL 250 MG ORAL TABLET 445448 AZITHROMYCIN Inactive CEFDINIR 300 MG ORAL CAPSULE [...] days PREDNISONE 20 MG ORAL T ABLET 388566 PREDNISONE Inactive BACTRIM DS 800-160 MG ORAL TABLET 1 tab by mouth twice daily 201 05/02/30 BACTRIM DS 800-160 MG ORAL TABLET 058072 TRIMETHOPRIM-SULFAMETHOXAZOLE Inactive ZITHROMAX Z-EMIL 250 MG ORAL TABLET 2 today, then 1 daily for 4 d ays ZITHROMAX Z-EMIL 250 MG ORAL TABLET 159838 AZITHROMYCIN Inactive Advance Directives Directive Description Start [...] 263 10^3/MM^3 10*3/mm3 142-424 Lab Report: Chlamydia/GC APTIMA/94802 - Lab chlamydia DNA probe NOT DETECTED NOT DETECTED Lab Report: Chlamydia/GC APTIMA/04014 - Microbiology Neisseria gonorrhoeae DNA probe NOT [...] 5.0-8.5 Encounters Code Encounter Date Provider Facility CPT-97452 Level 3 Est. Patient 14:55:50 FINANCIAL AID DIRECTOR Jose Zhong MD [facility] CPT-46319 Level 3 Est. Patient 10:21:41 FINANCIAL AID DIRECTOR Arie mcqueen MD [facility] CPT-43659 Level 3 Est. Patient 11:35:15 FINANCIAL AID DIRECTOR Arie mcqueen MD [facility] CPT-94041 Level 3 Est. Patient 15:40:28 CDT Brii And erson RISK ANALYST [facility] CPT-40071 Level 3 Est. Patient 16:40:36 CDT Arie mcqueen MD [facility] CPT-47106 Level 4 Est. Patient 15:29:22 FINANCIAL AID DIRECTOR Arie mcqueen MD [facility] CPT-22983 Level 3 Est. Patient 15:18:16 FINANCIAL AID DIRECTOR Jono black [facility] CPT-86533 Level 4 Est. Patient 12:08:40 FINANCIAL AID DIRECTOR Brii And erson [facility] CPT-77562 Level 3 Est. Patient 09:24:42 CDT Brii And erson [facility] CPT-52444 Level 3 Est. Patient 09:12:56 CDT Arie mcqueen MD [facility] CPT-02137 Level 3 Est. Patient 16:40:54 CDT Jose Zhong MD [facility] CPT-03441 Level 2 Est. Patient 13:01:13 CDT Brii And erson RISK ANALYST [facility] CPT-50730 Level 3 Est. Patient 11:55:30 FINANCIAL AID DIRECTOR Jono black [facility] CPT-55491 Level 3 Est. Patient 09:52:36 FINANCIAL AID DIRECTOR Brii And erson RISK ANALYST [facility] CPT-77201 Level 3 Est. Patient 16:25:33 FINANCIAL AID DIRECTOR Rich Rosales MD [facility] CPT-71319 Level 3 Est. Patient 20:33:55 CDT Arie mcqueen MD [facility] CPT-82863 Level 3 Est. Patient 14:18:20 CDT Rich Rosales MD [facility] CPT-65801 Level 4 Est. Patient 09:34:31 CDT Arie mcqueen MD [facility] CPT-13370 Level 3 Est. Patient 09:08:55 FINANCIAL AID DIRECTOR Liliana vincent MD PhD [facility] CPT-44568 Level 3 Est. Patient 16:44:07 FINANCIAL AID DIRECTOR Arie mcqueen MD [facility] CPT-40065 Level 3 Est. Patient 10:44:27 CDT Arie mcqueen MD [facility] CPT-21235 Level 3 Est. Patient 08:55:41 CDT Jose Zhong MD [facility] CPT-13064 Level 3 Est. Patient 18:37:31 CDT Liliana vincent MD PhD [facility] CPT-20614 Level 3 Est. Patient 14:28:23 CDT Abelardo HERNANDEZ [facility] CPT-99739 Level 3 Est. Patient 15:18:13 FINANCIAL AID DIRECTOR Arie mcqueen MD [facility] CPT-14543 Level 3 Est. Patient 10:11:29 FINANCIAL AID DIRECTOR Arie mcqueen MD [facility] CPT-89731 Level 3 Est. Patient 10:55:57 FINANCIAL AID DIRECTOR Jono black DO [facility] CPT-65392 Level 3 Est. Patient 17:29:05 CDT Arie mcqueen MD [facility] Procedures Code Procedure Name Date Entry Date Standard Desc ription CPT-66451 Nexplanon Removal 15:40:28 CDT CPT-32581 Sono transvag pelvis non OB uterus ovari es cervix - XRAY USE ONLY 08:58:14 FINANCIAL AID DIRECTOR CPT-25290 UA w micro - LAB USE ONLY 16:04:56 FINANCIAL AID DIRECTOR 2015 CPT-05684 Wet Prep/GEN - LAB USE ONLY 16:04:56 FINANCIAL AID DIRECTOR 20 08/10/29 CPT-20310 First Vx - Ix admin via ID I M or jet injects without counseling by physician 16:57:10 CDT CPT-47495 Fluzone Preservative Free Intramuscular Suspension 16:57:10 CDT CPT-J0696 Rocephin 1000 mg (Ceftriaxone) 11:49:23 CDT CPT-J1040 Depo Medrol 80 mg (Methyl Prednisolone A cetate) 11:49:23 CDT CPT-J1100 Decadron 8mg (Dexamethasone) 11:49:23 CDT 2 CPT-75792 Abx/Therapy Injection 11:49:23 CDT CPT-11522 Abx/Therapy Injection 11:49:23 CDT CPT-28552 Abd compl w upright 09:07:26 FINANCIAL AID DIRECTOR CPT-61413 Ear Wash 16:12:47 FINANCIAL AID DIRECTOR CPT-OV Office Visit 11:12:01 CDT CPT-OV Office Visit 15:30:23 CDT CPT-23897 Sono pelvis non OB uterus ovaries cervix 15:50:44 CDT CPT-39993 Hand comp min 3V 16:42:32 CDT CPT-05881 Abd compl w upright 12:17:01 CDT CPT-51792 Nexplanon Placement 15:07:39 FINANCIAL AID DIRECTOR CPT-12455 Removal of IUD 15:07:39 FINANCIAL AID DIRECTOR CPT-78713 TB Tubersol 12:09:32 CDT CPT-60523 TB Tubersol 13:55:43 CDT
--- OUTSIDE RECORDS SUMMARY | 2020-03-03 07:45 | XMS REPORT | Clinical Summary ---
Author Author Admin, Diamante Marcelo Organization [email or web address] Address Unknown Phone Unavailable Allergies, Adverse Reactions, [...] cute pharyngitis Nausea 787.02 Active Brii Larson [employer] Nausea alone URI 465.9 Active Jono [...] Anxiety with depression 300.4 Active Glenn Larson [employer] Dysthymic disorder URI 465.9 Active Jono Gagnon [...] MG TAB Take 1 tab BID NAPROXEN 459545620 15 Active Brii Larson APRN Active NEXPLANON IMPL Left arm subcutaneously ETONOGES TREL IMPL 70416081925 Active Brii Larson APRN Active CEFDINIR 300 MG CAPS 1 po BID x 10 days CEFDINI R 42258592100 No Longer Active Brii Larson APRN Active PREDNISONE 20 MG TAB 1 tablet daily for airway inflammation 2015 PREDNISONE 20401207946 No Longer Active Brii Larson APRN Active CEFDINIR 300 MG CAPS 1 po BID x 10 days CEFDINI R 30501323527 No Longer Active Jono Gagnon DO Active FLONASE 50 MCG/ACT SUSP 1 spray each nostril twice d aily for allergies and runny nose until gone FLUTICASONE PROPIONATE No Longe r Active Jono Gagnon DO Active ALPRAZOLAM 0.25 MG TAB 1 tablet by mouth every 8 hours as ne eded for stress ALPRAZOLAM 49195031793 No Longer Active Jono Gagnon DO Active ZOLOFT 50 MG TAB 1 tablet by mouth daily SERTRA LINE HCL 33965782147 Active Arie Casper MD Active LOMOTIL 2.5-0.025 MG TAB 1 tab po four times a day as needed for diarrhea DIPHENOXYLATE-ATROPINE 90612479473 Active Brii Larson APRN Active ZITHROMAX Z-EMIL 250 MG TABS 2 today, then 1 daily for 4 days 201 03/31/18 AZITHROMYCIN 64048013938 No Longer Active Arie Casper MD Active PROTONIX 40 MG ORAL TBEC 1 po q a.m. PANTOPRAZO LE SODIUM 94955401564 Active Arie Casper MD Active PREDNISONE 20 MG TAB 2 tabs daily for 3 days, 1 t ab daily for 3 days, 1/2 tab daily for 2 days PREDNISONE 30773490114 No Longer Active Brii Larson APRN Active PREDNISONE 20 MG TAB 1 tablet twice daily for 2 d ays, then 1 tablet once daily for 2 days PREDNISONE 93869331089 No Longer Active Brii Larson APRN Active PROMETHAZINE HCL 12.5 MG TABS 1 tablet by mouth every 6 hours as needed for nausea/vomiting PROMETHAZINE HCL 65656834749 No Longe r Active Jono Gagnon DO Active CITRATE OF MAGNESIA ORAL SOLN 1 bottle today for constipation 20 07/10/15 MAGNESIUM CITRATE 81677114825 No Longer Active Jono Gagnon DO Active ZOFRAN 4 MG ORAL TABS 1 TAB PO Q 6 HRS PRN NAUSEA 2014 ONDANSETRON HCL 02804484130 No Longer Active Brii Larson APRN A ctive LOMOTIL 2.5-0.025 MG TAB 1 to 2 four times a day as needed f or diarrhea DIPHENOXYLATE-ATROPINE 76427123642 No Longer Active January Larson APRN Active AMOXICILLIN 500 MG TABS 2 tabs twice a day for 10 days AMOXICILLIN 70887812742 No Longer Active Brii Larson APRN Acti ve CYCLOBENZAPRINE HCL 10 MG TABS 1/2 - 1 tablet by mouth three times daily as needed for muscle spasm/pain CYCLOBENZAPRINE HCL 95670815961 No Longer Active Arie Casper MD Active LOMOTIL 2.5-0.025 MG TABS 1 to 2 four times a day as needed for diarrhea DIPHENOXYLATE-ATROPINE 20916829638 No Longer Active D freddy Casper MD Active MACROBID 100 MG CAP 1 cap by mouth twice daily NITROFURANTOIN MONOHYD MACRO 44327019374 No Longer Active Arie Casper MD Active ZYRTEC ALLERGY 10 MG CAPS 1 po qd CETIRIZINE HCL 66511594345 No Longer Active Arie Casper MD Active AZITHROMYCIN 250 MG TABS 2 po qd x 1 day, then 1 po qd x 4 days AZITHROMYCIN 98955173156 No Longer Active Jillisael Frazelanette CABRERA Active PREDNISONE 20 MG TAB 2 tabs daily for 3 days, 1 t ab daily for 3 days, 1/2 tab daily for 2 days PREDNISONE 00292224778 No Longer Active Jillina Frazell RICK Active PROMETHAZINE HCL 25 MG TABS 1 four times a day as needed for vomiting PROMETHAZINE HCL 52494294831 No Longer Active Myrna Roberto MD Active BACTRIM DS 800-160 MG TABS 1 twice a day SULFAMETHOXAZOLE-TRIMETHOPRIM 09829250712 No Longer Active Myrna Roberto MD Active VICKS DAYQUIL SEVERE COLD/FLU TABS 1 tab every 6 hours prn 12/10 [id number] TABS 12153772111 No Longer Active Myrna leigh MD Active GUAIFENESIN-CODEINE 100-10 MG/5ML ORAL SYRP 2 tsp every 6 hours prn GUAIFENESIN-CODEINE 49115039541 No Longer Active Myrna Roberto MD Active NAPROXEN 500 MG TAB one tab PO BID NAPROXEN 332 03785908 No Longer Active Myrna Roberto MD Active AUGMENTIN 875-125 MG TAB 1 tab by mouth twice daily with food 20 08/12/16 AMOXICILLIN-POT CLAVULANATE 23931526943 No Longer Active Liliana Estrada MD PhD Active AMOXICILLIN 500 MG CAP 1 tab by mouth 3 times daily 08/12/16 AMOXICILLIN 07537389653 No Longer Active Liliana Estrada MD PhD Acti ve TESSALON PERLES 100 MG CAP 1 tablet by mouth 3 times daily 11/01 BENZONATATE 71258157006 No Longer Active Liliana Estrada MD PhD Active FLAGYL 500 MG TAB 1 tablet by mouth two times daily 07/11/29 METRONIDAZOLE 89126473198 No Longer Active Nilam Weber Active ZITHROMAX 250 MG TAB 2 po today, then 1 po q days 2-5 AZITHROMYCIN 98399157317 No Longer Active Arie Casper MD Acti ve VITAMINS 0.8 MG TABS take 1 tab po qday 08/08 [id number] 10366950047 No Longer Active Arie Casper MD Active IBUPROFEN 800 MG TABS take one po Q 8 hours IBU PROFEN 75220156708 No Longer Active Arie Casper MD Active [facility] TUSSIN COUGH/COLD CF 5-10-100 MG/5ML LIQD 2 teaspoons ev eliud 4 hours [id number] 86204127256 No Longer Active Blaine Casper MD Active COMTREX COLD/COUGH DAY/NITE MS 5-2-10-325 MG MISC 2 caps deja ry 4 hours [id number] 60719281437 No Longer Active Landon Casper MD Active CHLORASEPTIC MAX SORE THROAT 15-10 MG LOZG 1 every 2 hours prn 2 BENZOCAINE-MENTHOL 65347826116 No Longer Active Arie Marcelo Active PREDNISONE 20 MG TAB 2 tabs daily for 3 days, 1 t ab daily for 3 days, 1/2 tab daily for 2 days PREDNISONE 87641801919 No Longer Active Jose Zhong MD Active AZITHROMYCIN 250 MG TABS 2 po qd x 1 day, then 1 po qd x 4 days AZITHROMYCIN 05846861982 No Longer Active Jose Zhong MD Active ZOFRAN ODT 4 MG TBDP 1 po q6hr PRN Nausea ONDAN SETRON 56620311547 No Longer Active Rich Rosales MD Active ZOFRAN 4 MG TABS 1 tablet every 4 hours ONDANSE JERRELL HCL 13467091773 No Longer Active Rich Rosales MD Active MUCINEX 600 MG [id number] Take 1-2 tablets every 12 hours GUAIFENESIN 45871921957 No Longer Active Rich Rosales MD Activ e BACTRIM 400-80 MG TABS take one po BID SULFAMETHOXAZOLE-TRIMETHOPRIM 54862719365 No Longer Active Abelardo HERNANDEZ Active AZITHROMYCIN 500 MG TABS 1 PO q day x 6 days AZ ITHROMYCIN 66287365272 No Longer Active Tin HERNANDEZ Active ZITHROMAX 250 MG TAB 2 po today, then 1 po q days 2-5 AZITHROMYCIN 02602673365 No Longer Active Arie Casper MD Acti ve ZITHROMAX 250 MG TAB 2 po today, then 1 po q days 2-5 AZITHROMYCIN 74922612207 No Longer Active Arie Casper MD Acti ve AMOXICILLIN 500 MG CAP 1 tab by mouth 3 times daily 20 09/23/20 AMOXICILLIN 82661463365 No Longer Active Arie Casper MD Acti ve BACTRIM DS 800-160 MG TAB 1 tab by mouth twice daily 2 TRIMETHOPRIM-SULFAMETHOXAZOLE 83618229067 No Longer Active Arie Casper MD Active AMOXICILLIN 500 MG TABS take 1 tab po TID AMOXI CILLIN 02649393922 No Longer Active Arie Casper MD Active BACTRIM DS 800-160 MG TAB 1 tab by mouth twice daily 2 BACTRIM DS 800-160 MG TAB 591680 TRIMETHOPRIM-SULFAMETHOXAZOLE Inac tive MUCINEX 600 MG [id number] Take 1-2 tablets every 12 hours MUCINEX 600 MG [id number] GUAIFENESIN Inactive ZOFRAN 4 MG TABS 1 tablet every 4 hours ZOFRAN 4 MG TABS 997453 ONDANSETRON HCL Inactive ZOFRAN ODT 4 MG TBDP 1 po q6hr PRN Nausea ZOFRAN ODT 4 MG TBDP 442962 ONDANSETRON Inactive CHLORASEPTIC MAX SORE THROAT 15-10 MG LOZG 1 every 2 hours prn 2 CHLORASEPTIC MAX SORE THROAT 15-10 MG LOZG BENZO ARINA-MENTHOL Inactive COMTREX COLD/COUGH DAY/NITE MS 5-2-10-325 MG MISC 2 caps deja ry 4 hours COMTREX COLD/COUGH DAY/NITE MS 5-2-10-325 MG MIS C [id number] Inactive [facility] TUSSIN COUGH/COLD CF 5-10-100 MG/5ML LIQD 2 teaspoons ev eliud 4 hours [facility] TUSSIN COUGH/COLD CF 5-10-100 MG/5ML LIQD [id number] Inactive IBUPROFEN 800 MG TABS take one po Q 8 hours IBUPROFEN 800 MG TABS IBUPROFEN Inactive VITAMINS 0.8 MG TABS take 1 tab po qday 08/08 VITAMINS 0.8 MG TABS [id number] Inactive TESSALON PERLES 100 MG CAP 1 tablet by mouth 3 times daily 11/01 TESSALON PERLES 100 MG CAP 432387 BENZONATATE Inact zaid AMOXICILLIN 500 MG CAP 1 tab by mouth 3 times daily 08/12/16 AMOXICILLIN 500 MG CAP 372884 AMOXICILLIN Inactive GUAIFENESIN-CODEINE 100-10 MG/5ML ORAL SYRP 2 tsp every 6 hours prn GUAIFENESIN-CODEINE 100-10 MG/5ML ORAL SYRP 058756 GUAIFENESIN-CODEINE Inactive VICKS DAYQUIL SEVERE COLD/FLU TABS 1 tab every 6 hours prn 12/10 VICKS DAYQUIL SEVERE COLD/FLU TABS PHENYLEPHRINE -DM-GG-APAP TABS Inactive BACTRIM DS 800-160 MG TABS 1 twice a day BACTRIM DS 800- 160 MG TABS 581240 SULFAMETHOXAZOLE-TRIMETHOPRIM Inactive PROMETHAZINE HCL 25 MG TABS 1 four times a day as needed for vomiting PROMETHAZINE HCL 25 MG TABS 377938 PROMETHAZINE HCL Inactive ZYRTEC ALLERGY 10 MG CAPS 1 po qd ZY RTEC ALLERGY 10 MG CAPS CETIRIZINE HCL Inactive MACROBID 100 MG CAP 1 cap by mouth twice daily MACROBID 100 MG CAP 8521633 NITROFURANTOIN MONOHYD MACRO Inactive LOMOTIL 2.5-0.025 MG TABS 1 to 2 four times a day as needed for diarrhea LOMOTIL 2.5-0.025 MG TABS 1196045 DIPHENOXYLATE-A TROPINE Inactive CYCLOBENZAPRINE HCL 10 MG TABS 1/2 - 1 tablet by mouth three times daily as needed for muscle spasm/pain CYCLOBENZAP RINE HCL 10 MG TABS 636501 CYCLOBENZAPRINE HCL Inactive AMOXICILLIN 500 MG TABS 2 tabs twice a day for 10 days AMOXICILLIN 500 MG TABS 727078 AMOXICILLIN Inactive LOMOTIL 2.5-0.025 MG TAB 1 to 2 four times a day as needed f or diarrhea LOMOTIL 2.5-0.025 MG TAB 1209376 DIPHENOXYLATE-AT ROPINE Inactive ZOFRAN 4 MG ORAL TABS 1 TAB PO Q 6 HRS PRN NAUSEA 2014 ZOFRAN 4 MG ORAL TABS 075784 ONDANSETRON HCL Inactive CITRATE OF MAGNESIA ORAL SOLN 1 bottle today for constipation 20 07/10/15 CITRATE OF MAGNESIA ORAL SOLN 9561231 MAGNESIUM CITRATE Inactive PROMETHAZINE HCL 12.5 MG TABS 1 tablet by mouth every 6 hours as needed for nausea/vomiting PROMETHAZINE HCL 12.5 MG TABS 965072 PROMETHAZINE HCL Inactive PREDNISONE 20 MG TAB 1 tablet twice daily for 2 d ays, then 1 tablet once daily for 2 days PREDNISONE 20 MG TAB 176208 PREDNISONE Inac tive ALPRAZOLAM 0.25 MG TAB 1 tablet by mouth every 8 hours as ne eded for stress ALPRAZOLAM 0.25 MG TAB 386532 ALPRAZOLAM Inact zaid FLONASE 50 MCG/ACT SUSP 1 spray each nostril twice d aily for allergies and runny nose until gone FLONASE 50 MCG/ACT SUSP F LUTICASONE PROPIONATE Inactive PREDNISONE 20 MG TAB 1 tablet daily for airway inflammation 2015 PREDNISONE 20 MG TAB 466051 PREDNISONE Inactive AMOXICILLIN 500 MG TABS take 1 tab po TID AMOXICILLIN 500 MG TABS 451010 AMOXICILLIN Inactive AMOXICILLIN 500 MG CAP 1 tab by mouth 3 times daily 09/23/20 AMOXICILLIN 500 MG CAP 265625 AMOXICILLIN Inactive ZITHROMAX 250 MG TAB 2 po today, then 1 po q days 2-5 ZITHROMAX 250 MG TAB 0626327 AZITHROMYCIN Inactive ZITHROMAX 250 MG TAB 2 po today, then 1 po q days 2-5 ZITHROMAX 250 MG TAB 2831197 AZITHROMYCIN Inactive AZITHROMYCIN 500 MG TABS 1 PO q day x 6 days 3 AZITHROMYCIN 500 MG TABS 2776882 AZITHROMYCIN Inactive BACTRIM 400-80 MG TABS take one po BID BA CTRIM 400-80 MG TABS 334279 SULFAMETHOXAZOLE-TRIMETHOPRIM Inactive AZITHROMYCIN 250 MG TABS 2 po qd x 1 day, then 1 po qd x 4 days AZITHROMYCIN 250 MG TABS 5650502 AZITHROMYCIN Inactiv e PREDNISONE 20 MG TAB 2 tabs daily for 3 days, 1 t ab daily for 3 days, 1/2 tab daily for 2 days PREDNISONE 20 MG TAB 533703 PREDNISON E Inactive ZITHROMAX 250 MG TAB 2 po today, then 1 po q days 2-5 ZITHROMAX 250 MG TAB 0586559 AZITHROMYCIN Inactive FLAGYL 500 MG TAB 1 tablet by mouth two times daily 07/11/29 FLAGYL 500 MG TAB 458997 METRONIDAZOLE Inactive AUGMENTIN 875-125 MG TAB 1 tab by mouth twice daily with food 20 08/12/16 AUGMENTIN 875-125 MG TAB 447905 AMOXICILLIN-POT CLAVULA ANGELO Inactive NAPROXEN 500 MG TAB one tab PO BID NAPROXEN 500 MG TAB 040179 NAPROXEN Inactive PREDNISONE 20 MG TAB 2 tabs daily for 3 days, 1 t ab daily for 3 days, 1/2 tab daily for 2 days PREDNISONE 20 MG TAB 021847 PREDNISON E Inactive AZITHROMYCIN 250 MG TABS 2 po qd x 1 day, then 1 po qd x 4 days AZITHROMYCIN 250 MG TABS 3829621 AZITHROMYCIN Inactiv e PREDNISONE 20 MG TAB 2 tabs daily for 3 days, 1 t ab daily for 3 days, 1/2 tab daily for 2 days PREDNISONE 20 MG TAB 945476 PREDNISON E Inactive ZITHROMAX Z-EMIL 250 MG TABS 2 today, then 1 daily for 4 days 201 03/31/18 ZITHROMAX Z-EMIL 250 MG TABS 3030624 AZITHROMYCIN Inac tive CEFDINIR 300 MG CAPS [...] Panel - Chemistry sodium, serum 136 mmol/L 678-978 1014/04/26 carbon dioxide, venous blood 29.9 mmol/L 21.0-32 [...] Negative Encounters Code Encounter Date Provider Facility CPT-56073 Level 3 Est. Patient 15:18:16 TOPOGRAPHICAL DRAFTER Jono black [facility] [address] CPT-11571 Level 4 Est. Patient 12:08:40 TOPOGRAPHICAL DRAFTER Steve [facility] CPT-46468 Level 3 Est. Patient 09:24:42 CDT Steve [facility] CPT-22685 Level 3 Est. Patient 09:12:56 CDT Arie mcqueen MD [facility] CPT-10898 Level 3 Est. Patient 16:40:54 CDT Jose Zhong MD [facility] CPT-53952 Level 2 Est. Patient 13:01:13 CDT Steve [facility] CPT-74390 Level 3 Est. Patient 11:55:30 TOPOGRAPHICAL DRAFTER Jono black [facility] [address] CPT-04204 Level 3 Est. Patient 09:52:36 TOPOGRAPHICAL DRAFTER Steve [facility] CPT-26213 Level 3 Est. Patient 16:25:33 TOPOGRAPHICAL DRAFTER Rich Rosales MD [facility]-41269 Level 3 Est. Patient 20:33:55 CDT Arie mcqueen MD [facility]-10760 Level 3 Est. Patient 14:18:20 CDT Rich Rosales MD [facility]-35933 Level 4 Est. Patient 09:34:31 CDT Arie mcqueen MD [facility]-29857 Level 3 Est. Patient 09:08:55 TOPOGRAPHICAL DRAFTER Liliana vincent MD [facility]-41891 Level 3 Est. Patient 16:44:07 TOPOGRAPHICAL DRAFTER Arie mcqueen MD [facility]-20128 Level 3 Est. Patient 10:44:27 CDT Arie mcqueen MD [facility] CPT-65173 Level 3 Est. Patient 08:55:41 CDT Jose Zhong MD [facility]-53466 Level 3 Est. Patient 18:37:31 CDT Liliana vincent MD PhD [facility]-71252 Level 3 Est. Patient 14:28:23 CDT Abelardo HERNANDEZ [facility]-10790 Level 3 Est. Patient 15:18:13 TOPOGRAPHICAL DRAFTER Arie mcqueen MD [facility]-69545 Level 3 Est. Patient 10:11:29 TOPOGRAPHICAL DRAFTER Arie mcqueen MD [facility]-09352 Level 3 Est. Patient 10:55:57 TOPOGRAPHICAL DRAFTER Jono black DO [facility] CPT-22611 Level 3 Est. Patient 17:29:05 CDT Arie mcqueen MD [facility] Procedures Code Procedure Name Date Entry Date Standard Desc ription CPT-00299 Sono transvag pelvis non OB uterus ovari es cervix - XRAY USE ONLY 08:58:14 TOPOGRAPHICAL DRAFTER CPT-87455 UA w micro - LAB USE ONLY 16:04:56 TOPOGRAPHICAL DRAFTER 2015 CPT-12264 Wet Prep/GEN - LAB USE ONLY 16:04:56 TOPOGRAPHICAL DRAFTER 20 08/10/29 CPT-66295 First Vx - Ix admin via ID I M or jet injects without counseling by physician 16:57:10 CDT CPT-25752 Fluzone Preservative Free Intramuscular Suspension 16:57:10 CDT CPT-J0696 Rocephin 1000 mg (Ceftriaxone) 11:49:23 CDT CPT-J1040 Depo Medrol 80 mg (Methyl Prednisolone A cetate) 11:49:23 CDT CPT-J1100 Decadron 8mg (Dexamethasone) 11:49:23 CDT 2 CPT-73109 Abx/Therapy Injection 11:49:23 CDT CPT-92870 Abx/Therapy Injection 11:49:23 CDT CPT-24351 Abd compl w upright 09:07:26 TOPOGRAPHICAL DRAFTER CPT-90769 Ear Wash 16:12:47 TOPOGRAPHICAL DRAFTER CPT-OV Office Visit 11:12:01 CDT CPT-OV Office Visit 15:30:23 CDT CPT-55169 Sono pelvis non OB uterus ovaries cervix 15:50:44 CDT CPT-50432 Hand comp min 3V 16:42:32 CDT CPT-17658 Abd compl w upright 12:17:01 CDT CPT-92745 Nexplanon Placement 15:07:39 TOPOGRAPHICAL DRAFTER CPT-62776 Removal of IUD 15:07:39 TOPOGRAPHICAL DRAFTER CPT-31784 TB Tubersol 12:09:32 CDT CPT-33812 TB Tubersol 13:55:43 CDT
--- OUTSIDE RECORDS SUMMARY | 2020-03-03 07:45 | XMS REPORT | Clinical Summary ---
Author Author Admin, Diamante Marcelo Organization [employer] Address Unknown Phone Unavailable Allergies, Adverse [...] alaise and fatigue Insect bite 919.4 Active Rosaenn Crawford Ins ect bite, nonvenomous, of other, multiple, and unspecified sites, without mention of infection Sinusitis 461.9 Active Rich Rosales MD Acute sinusitis, unspecified Cerumen impaction, right 380.4 Active Alex isamar Rosales MD Impacted cerumen Sore throat 462 Active Nilam Raida A cute pharyngitis Nausea 787.02 Active Brii Larson COUNTRY SALES MANAGER Nausea alone URI 465.9 Active Jono Gagnon DO Acu te upper respiratory infections of unspecified site Allergic rhinitis 477.9 Active Brii Christianson PRN Allergic rhinitis, cause unspecified Abdominal pain, right lower quadrant 789.03 Active Jose Zhong MD Abdominal pain, right lower quadrant Urinary frequency 788.41 Inactive Roseann Crawford Urinary frequency Urinary frequency 788.41 Active 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, TRANSPORTATION OPERATIONS MANAGER Urinary frequency Sinusitis - acute 461.9 Active Brii Christianson PRN Acute sinusitis, unspecified Anxiety with depression 300.4 Active Glenn Larson COUNTRY SALES MANAGER Dysthymic disorder URI 465.9 Active Jono [...] IMPL right arm subcutaneously ETONOGE STREL IMPL 00493603590 No Longer Active Brii Larson APRN Active TUSSIONEX PENNKINETIC ER 10-8 MG/5ML LQCR 5ml po q12hr PRN Cough HYDROCOD POLST-CHLORPHEN POLST 10152315625 No Longer Active Brii Larson APRN Active CETIRIZINE HCL 10 MG ORAL TABS 1 po qd PRN Allergies 2 CETIRIZINE HCL 69622101510 No Longer Active Brii Larson APRN Ac tive PREDNISONE 20 MG TAB 2 tabs daily for 3 days, 1 t ab daily for 3 days, 1/2 tab daily for 2 days PREDNISONE 22327712909 No Longer Active Arie Casper MD Active LOMOTIL 2.5-0.025 MG TAB 1 tab po four times a day as needed for diarrhea DIPHENOXYLATE-ATROPINE 12025513959 No Longer Active Mason Casper MD Active ZOLOFT 50 MG TAB 1 tablet by mouth daily SERTRA LINE HCL 77053953101 No Longer Active Arie Casper MD Active NAPROXEN 500 MG TAB Take 1 tab BID NAPROXEN 332 28388535 No Longer Active Arie Casper MD Active CEFDINIR 300 MG CAPS 1 po BID x 10 days CEFDINI R 69656258320 No Longer Active Brii Larson APRN Active PREDNISONE 20 MG TAB 1 tablet daily for airway inflammation 2015 PREDNISONE 89583365677 No Longer Active Brii Larson APRN Active CEFDINIR 300 MG CAPS 1 po BID x 10 days CEFDINI R 61534582194 No Longer Active Jono Gagnon DO Active FLONASE 50 MCG/ACT SUSP 1 spray each nostril twice d aily for allergies and runny nose until gone FLUTICASONE PROPIONATE No Longe r Active Jono Gagnon DO Active ALPRAZOLAM 0.25 MG TAB 1 tablet by mouth every 8 hours as ne eded for stress ALPRAZOLAM 70841093834 No Longer Active Jono Gagnon DO Active ZITHROMAX Z-EMIL 250 MG TABS 2 today, then 1 daily for 4 days 201 03/31/18 AZITHROMYCIN 80699234695 No Longer Active Arie Casper MD Active PROTONIX 40 MG ORAL TBEC 1 po q a.m. PANTOPRAZO LE SODIUM 59023995986 Active Arie Casper MD Active PREDNISONE 20 MG TAB 2 tabs daily for 3 days, 1 t ab daily for 3 days, 1/2 tab daily for 2 days PREDNISONE 99673139311 No Longer Active Brii Larson APRN Active PREDNISONE 20 MG TAB 1 tablet twice daily for 2 d ays, then 1 tablet once daily for 2 days PREDNISONE 24192388306 No Longer Active Brii Larson APRN Active PROMETHAZINE HCL 12.5 MG TABS 1 tablet by mouth every 6 hours as needed for nausea/vomiting PROMETHAZINE HCL 71208582534 No Longe r Active Jono Gagnon DO Active CITRATE OF MAGNESIA ORAL SOLN 1 bottle today for constipation 20 07/10/15 MAGNESIUM CITRATE 37636821378 No Longer Active Jono Gagnon DO Active ZOFRAN 4 MG ORAL TABS 1 TAB PO Q 6 HRS PRN NAUSEA 2014 ONDANSETRON HCL 45988986886 No Longer Active Brii Larson APRN A ctive LOMOTIL 2.5-0.025 MG TAB 1 to 2 four times a day as needed f or diarrhea DIPHENOXYLATE-ATROPINE 58349475738 No Longer Active January Larson APRN Active AMOXICILLIN 500 MG TABS 2 tabs twice a day for 10 days AMOXICILLIN 85420709907 No Longer Active Brii Larson APRN Acti ve CYCLOBENZAPRINE HCL 10 MG TABS 1/2 - 1 tablet by mouth three times daily as needed for muscle spasm/pain CYCLOBENZAPRINE HCL 52178816022 No Longer Active Arie Casper MD Active LOMOTIL 2.5-0.025 MG TABS 1 to 2 four times a day as needed for diarrhea DIPHENOXYLATE-ATROPINE 82637771587 No Longer Active Mason Casper MD Active MACROBID 100 MG CAP 1 cap by mouth twice daily NITROFURANTOIN MONOHYD MACRO 79820765345 No Longer Active Arie Casper MD Active ZYRTEC ALLERGY 10 MG CAPS 1 po qd CETIRIZINE HCL 62056379226 No Longer Active Arie Casper MD Active AZITHROMYCIN 250 MG TABS 2 po qd x 1 day, then 1 po qd x 4 days AZITHROMYCIN 90625134797 No Longer Active Jillina Frazell COUNTRY SALES MANAGER Active PREDNISONE 20 MG TAB 2 tabs daily for 3 days, 1 t ab daily for 3 days, 1/2 tab daily for 2 days PREDNISONE 21575985893 No Longer Active Jillina Frazell COUNTRY SALES MANAGER Active PROMETHAZINE HCL 25 MG TABS 1 four times a day as needed for vomiting PROMETHAZINE HCL 71222318160 No Longer Active Myrna Roberto MD Active BACTRIM DS 800-160 MG TABS 1 twice a day SULFAMETHOXAZOLE-TRIMETHOPRIM 45362025276 No Longer Active Myrna Roberto MD Active VICKS DAYQUIL SEVERE COLD/FLU TABS 1 tab every 6 hours prn 12/10 [id number] TABS 08631187812 No Longer Active Myrna leigh MD Active GUAIFENESIN-CODEINE 100-10 MG/5ML ORAL SYRP 2 tsp every 6 hours prn GUAIFENESIN-CODEINE 79722247515 No Longer Active Myrna Roberto MD Active NAPROXEN 500 MG TAB one tab PO BID NAPROXEN 332 18978010 No Longer Active Myrna Roberto MD Active AUGMENTIN 875-125 MG TAB 1 tab by mouth twice daily with food 20 08/12/16 AMOXICILLIN-POT CLAVULANATE 02204417762 No Longer Active Liliana Estrada MD [facility] Active AMOXICILLIN 500 MG CAP 1 tab by mouth 3 times daily 08/12/16 AMOXICILLIN 13995160665 No Longer Active Liliana Estrada MD PhD Acti ve TESSALON PERLES 100 MG CAP 1 tablet by mouth 3 times daily 11/01 BENZONATATE 92061491070 No Longer Active Liliana Estrada MD PhD Active FLAGYL 500 MG TAB 1 tablet by mouth two times daily 20 07/11/29 METRONIDAZOLE 99891837564 No Longer Active Nilam Weber Active ZITHROMAX 250 MG TAB 2 po today, then 1 po q days 2-5 AZITHROMYCIN 77566353053 No Longer Active Arie Casper MD Acti ve VITAMINS 0.8 MG TABS take 1 tab po qday 08/08 [id number] 71036693258 No Longer Active Arie Casper MD Active IBUPROFEN 800 MG TABS take one po Q 8 hours IBU PROFEN 79843209689 No Longer Active Arie Casper MD Active [facility] TUSSIN COUGH/COLD CF 5-10-100 MG/5ML LIQD 2 teaspoons ev eliud 4 hours [id number] 79638043868 No Longer Active Blaine Casper MD Active COMTREX COLD/COUGH DAY/NITE MS 5-2-10-325 MG MISC 2 caps deja ry 4 hours [id number] 32600073523 No Longer Active Da vimason Casper MD Active CHLORASEPTIC MAX SORE THROAT 15-10 MG LOZG 1 every 2 hours prn 2 BENZOCAINE-MENTHOL 58106414886 No Longer Active Arie Marcelo Active PREDNISONE 20 MG TAB 2 tabs daily for 3 days, 1 t ab daily for 3 days, 1/2 tab daily for 2 days PREDNISONE 21910687752 No Longer Active Jose Zhong MD Active AZITHROMYCIN 250 MG TABS 2 po qd x 1 day, then 1 po qd x 4 days AZITHROMYCIN 43798541702 No Longer Active Jose Zhong MD Active ZOFRAN ODT 4 MG TBDP 1 po q6hr PRN Nausea ONDAN SETRON 62623918864 No Longer Active Rich Rosales MD Active ZOFRAN 4 MG TABS 1 tablet every 4 hours ONDANSE JERRELL HCL 65887028278 No Longer Active Rich Rosales MD Active MUCINEX 600 MG [id number] Take 1-2 tablets every 12 hours GUAIFENESIN 90542617691 No Longer Active Rich Rosales MD Activ e BACTRIM 400-80 MG TABS take one po BID SULFAMETHOXAZOLE-TRIMETHOPRIM 11534225829 No Longer Active Abelardo HERNANDEZ Active AZITHROMYCIN 500 MG TABS 1 PO q day x 6 days AZ ITHROMYCIN 20856163698 No Longer Active Tin HERNANDEZ Active ZITHROMAX 250 MG TAB 2 po today, then 1 po q days 2-5 AZITHROMYCIN 98515446429 No Longer Active Arie Casper MD Acti ve ZITHROMAX 250 MG TAB 2 po today, then 1 po q days 2-5 AZITHROMYCIN 04486507331 No Longer Active Arie Casper MD Acti ve AMOXICILLIN 500 MG CAP 1 tab by mouth 3 times daily 20 09/23/20 AMOXICILLIN 08407038981 No Longer Active Arie Casper MD Acti ve BACTRIM DS 800-160 MG TAB 1 tab by mouth twice daily 2 TRIMETHOPRIM-SULFAMETHOXAZOLE 60466319215 No Longer Active Arie Casper MD Active AMOXICILLIN 500 MG TABS take 1 tab po TID AMOXI CILLIN 50244684864 No Longer Active Arie Casper MD Active BACTRIM DS 800-160 MG TAB 1 tab by mouth twice daily 2 BACTRIM DS 800-160 MG TAB 595887 TRIMETHOPRIM-SULFAMETHOXAZOLE Inac tive MUCINEX 600 MG [id number] Take 1-2 tablets every 12 hours MUCINEX 600 MG [id number] GUAIFENESIN Inactive ZOFRAN 4 MG TABS 1 tablet every 4 hours ZOFRAN 4 MG TABS 682551 ONDANSETRON HCL Inactive ZOFRAN ODT 4 MG TBDP 1 po q6hr PRN Nausea ZOFRAN ODT 4 MG TBDP 894935 ONDANSETRON Inactive CHLORASEPTIC MAX SORE THROAT 15-10 MG LOZG 1 every 2 hours prn 2 CHLORASEPTIC MAX SORE THROAT 15-10 MG LOZG BENZO ARINA-MENTHOL Inactive COMTREX COLD/COUGH DAY/NITE MS 5-2-10-325 MG MISC 2 caps deja ry 4 hours COMTREX COLD/COUGH DAY/NITE MS 5-2-10-325 MG MIS C [id number] Inactive [facility] TUSSIN COUGH/COLD CF 5-10-100 MG/5ML LIQD 2 teaspoons ev eliud 4 hours [facility] TUSSIN COUGH/COLD CF 5-10-100 MG/5ML LIQD [id number] Inactive IBUPROFEN 800 MG TABS take one po Q 8 hours IBUPROFEN 800 MG TABS IBUPROFEN Inactive VITAMINS 0.8 MG TABS take 1 tab po qday 08/08 VITAMINS 0.8 MG TABS [id number] Inactive TESSALON PERLES 100 MG CAP 1 tablet by mouth 3 times daily 11/01 TESSALON PERLES 100 MG CAP 814128 BENZONATATE Inact zaid AMOXICILLIN 500 MG CAP 1 tab by mouth 3 times daily 08/12/16 AMOXICILLIN 500 MG CAP 254896 AMOXICILLIN Inactive GUAIFENESIN-CODEINE 100-10 MG/5ML ORAL SYRP 2 tsp every 6 hours prn GUAIFENESIN-CODEINE 100-10 MG/5ML ORAL SYRP 415606 GUAIFENESIN-CODEINE Inactive VICKS DAYQUIL SEVERE COLD/FLU TABS 1 tab every 6 hours prn 12/10 VICKS DAYQUIL SEVERE COLD/FLU TABS PHENYLEPHRINE -DM-GG-APAP TABS Inactive BACTRIM DS 800-160 MG TABS 1 twice a day BACTRIM DS 800- 160 MG TABS 152167 SULFAMETHOXAZOLE-TRIMETHOPRIM Inactive PROMETHAZINE HCL 25 MG TABS 1 four times a day as needed for vomiting PROMETHAZINE HCL 25 MG TABS 329291 PROMETHAZINE HCL Inactive ZYRTEC ALLERGY 10 MG CAPS 1 po qd ZY RTEC ALLERGY 10 MG CAPS CETIRIZINE HCL Inactive MACROBID 100 MG CAP 1 cap by mouth twice daily MACROBID 100 MG CAP 4497251 NITROFURANTOIN MONOHYD MACRO Inactive LOMOTIL 2.5-0.025 MG TABS 1 to 2 four times a day as needed for diarrhea LOMOTIL 2.5-0.025 MG TABS 4512957 DIPHENOXYLATE-A TROPINE Inactive CYCLOBENZAPRINE HCL 10 MG TABS 1/2 - 1 tablet by mouth three times daily as needed for muscle spasm/pain CYCLOBENZAP RINE HCL 10 MG TABS 258033 CYCLOBENZAPRINE HCL Inactive AMOXICILLIN 500 MG TABS 2 tabs twice a day for 10 days AMOXICILLIN 500 MG TABS 767595 AMOXICILLIN Inactive LOMOTIL 2.5-0.025 MG TAB 1 to 2 four times a day as needed f or diarrhea LOMOTIL 2.5-0.025 MG TAB 3969485 DIPHENOXYLATE-AT ROPINE Inactive ZOFRAN 4 MG ORAL TABS 1 TAB PO Q 6 HRS PRN NAUSEA 2014 ZOFRAN 4 MG ORAL TABS 856815 ONDANSETRON HCL Inactive CITRATE OF MAGNESIA ORAL SOLN 1 bottle today for constipation 20 07/10/15 CITRATE OF MAGNESIA ORAL SOLN 8869926 MAGNESIUM CITRATE Inactive PROMETHAZINE HCL 12.5 MG TABS 1 tablet by mouth every 6 hours as needed for nausea/vomiting PROMETHAZINE HCL 12.5 MG TABS 821247 PROMETHAZINE HCL Inactive PREDNISONE 20 MG TAB 1 tablet twice daily for 2 d ays, then 1 tablet once daily for 2 days PREDNISONE 20 MG TAB 626618 PREDNISONE Inac tive ALPRAZOLAM 0.25 MG TAB 1 tablet by mouth every 8 hours as ne eded for stress ALPRAZOLAM 0.25 MG TAB 236552 ALPRAZOLAM Inact zaid FLONASE 50 MCG/ACT SUSP 1 spray each nostril twice d aily for allergies and runny nose until gone FLONASE 50 MCG/ACT SUSP 2628777 FLUTICASONE PROPIONATE Inactive PREDNISONE 20 MG TAB 1 tablet daily for airway inflammation 2015 PREDNISONE 20 MG TAB 186095 PREDNISONE Inactive NAPROXEN 500 MG TAB Take 1 tab BID NAPROXEN 500 MG TAB 346531 NAPROXEN Inactive ZOLOFT 50 MG TAB 1 tablet by mouth daily ZOLOFT 50 MG TAB 426364 SERTRALINE HCL Inactive LOMOTIL 2.5-0.025 MG TAB 1 tab po four times a day as needed for diarrhea LOMOTIL 2.5-0.025 MG TAB 3846548 DIPHENOXYLATE-AT ROPINE Inactive CETIRIZINE HCL 10 MG ORAL TABS 1 po qd PRN Allergies 2 CETIRIZINE HCL 10 MG ORAL TABS 3868400 CETIRIZINE HCL Inactive TUSSIONEX PENNKINETIC ER 10-8 MG/5ML LQCR 5ml po q12hr PRN Cough TUSSIONEX PENNKINETIC ER 10-8 MG/5ML LQCR HYDROCOD POLST-CHLORPHEN POLST Inactive NEXPLANON IMPL right arm subcutaneously NEXPLANO N IMPL ETONOGESTREL IMPL Inactive AMOXICILLIN 500 MG TABS take 1 tab po TID AMOXICILLIN 500 MG TABS 705092 AMOXICILLIN Inactive AMOXICILLIN 500 MG CAP 1 tab by mouth 3 times daily 09/23/20 AMOXICILLIN 500 MG CAP 705625 AMOXICILLIN Inactive ZITHROMAX 250 MG TAB 2 po today, then 1 po q days 2-5 ZITHROMAX 250 MG TAB 538781 AZITHROMYCIN Inactive ZITHROMAX 250 MG TAB 2 po today, then 1 po q days 2-5 ZITHROMAX 250 MG TAB 728583 AZITHROMYCIN Inactive AZITHROMYCIN 500 MG TABS 1 PO q day x 6 days 3 AZITHROMYCIN 500 MG TABS 6105807 AZITHROMYCIN Inactive BACTRIM 400-80 MG TABS take one po BID BA CTRIM 400-80 MG TABS 816727 SULFAMETHOXAZOLE-TRIMETHOPRIM Inactive AZITHROMYCIN 250 MG TABS 2 po qd x 1 day, then 1 po qd x 4 days AZITHROMYCIN 250 MG TABS 236712 AZITHROMYCIN Inactiv e PREDNISONE 20 MG TAB 2 tabs daily for 3 days, 1 t ab daily for 3 days, 1/2 tab daily for 2 days PREDNISONE 20 MG TAB 906290 PREDNISON E Inactive ZITHROMAX 250 MG TAB 2 po today, then 1 po q days 2-5 ZITHROMAX 250 MG TAB 389873 AZITHROMYCIN Inactive FLAGYL 500 MG TAB 1 tablet by mouth two times daily 07/11/29 FLAGYL 500 MG TAB 367999 METRONIDAZOLE Inactive AUGMENTIN 875-125 MG TAB 1 tab by mouth twice daily with food 08/12/16 AUGMENTIN 875-125 MG TAB 305188 AMOXICILLIN-POT CLAVULA ANGELO Inactive NAPROXEN 500 MG TAB one tab PO BID NAPROXEN 500 MG TAB 953022 NAPROXEN Inactive PREDNISONE 20 MG TAB 2 tabs daily for 3 days, 1 t ab daily for 3 days, 1/2 tab daily for 2 days PREDNISONE 20 MG TAB 338156 PREDNISON E Inactive AZITHROMYCIN 250 MG TABS 2 po qd x 1 day, then 1 po qd x 4 days AZITHROMYCIN 250 MG TABS 659843 AZITHROMYCIN Inactiv e PREDNISONE 20 MG TAB 2 tabs daily for 3 days, 1 t ab daily for 3 days, 1/2 tab daily for 2 days PREDNISONE 20 MG TAB 102320 PREDNISON E Inactive ZITHROMAX Z-EMIL 250 MG TABS 2 today, then 1 daily for 4 days 201 03/31/18 ZITHROMAX Z-EMIL 250 MG TABS 578475 AZITHROMYCIN Inac tive CEFDINIR 300 MG CAPS [...] for 2 days PREDNISONE 20 MG TAB 182186 PREDNISON E Inactive Advance Directives Directive Description [...] Value Unit Range Description Lab Report: Chlamydia/GC APTIMA/81011 - Lab chlamydia DNA probe NOT DETECTED NOT DETECTED Lab Report: Chlamydia/GC APTIMA/[id number] - Microbiology Neisseria gonorrhoeae DNA probe NOT [...] 5.0-8.5 Encounters Code Encounter Date Provider Facility CPT-12971 Level 3 Est. Patient 15:40:28 CDT Steve COUNTRY SALES MANAGER [facility] CPT-38124 Level 3 Est. Patient 16:40:36 CDT Arie mcqueen MD [facility] CPT-72272 Level 4 Est. Patient 15:29:22 [employer]LE [employer] Arie mcqueen MD [facility] CPT-00084 Level 3 Est. Patient 15:18:16 [employer] Jono black [facility] CPT-69430 Level 4 Est. Patient 12:08:40 [employer] Steve COUN[employer] SALES MANAGER [facility] CPT-18616 Level 3 Est. Patient 09:24:[address] [facility] CPT-19736 Level 3 Est. Patient 09:12:56 CDT Arie mcqueen MD [facility] CPT-79627 Level 3 Est. Patient 16:40:54 CDT Jose Zhong MD [facility] CPT-51035 Level 2 Est. Patient 13:01:13 CDT Steve COUNTRY SALES MANAGER [facility] CPT-58173 Level 3 Est. Patient 11:55:30 [employer] Jono black [facility] CPT-94541 Level 3 Est. Patient 09:52:36 [employer] CARVER Steve IRCK [facility] CPT-02746 Level 3 Est. Patient 16:25:33 [employer] Rich Rosales MD [facility] CPT-14761 Level 3 Est. Patient 20:33:55 CDT Arie mcqueen MD [facility] CPT-62083 Level 3 Est. Patient 14:18:20 CDT Rich Rosales MD [facility] CPT-34813 Level 4 Est. Patient 09:34:31 CDT Arie mcqueen MD [facility] CPT-57202 Level 3 Est. Patient 09:08:55 [employer] Liliana vincent MD PhD [facility]-61874 Level 3 Est. Patient 16:44:07 [employer] Arie mcqueen MD [facility] CPT-44989 Level 3 Est. Patient 10:44:27 CDT Arie mcqueen MD [facility] CPT-57190 Level 3 Est. Patient 08:55:41 CDT Jose Zhong MD [facility] CPT-75368 Level 3 Est. Patient 18:37:31 CDT Liliana vincent MD PhD [facility] CPT-17920 Level 3 Est. Patient 14:28:23 CDT Abelardo HERNANDEZ [facility] CPT-24499 Level 3 Est. Patient 15:18:13 [employer] Arie mcqueen MD [facility] CPT-46822 Level 3 Est. Patient 10:11:29 [employer] Arie mcqueen MD [facility] CPT-82211 Level 3 Est. Patient 10:55:57 [employer]VER Jono black DO [facility] CPT-70477 Level 3 Est. Patient 17:29:05 CDT Arie mcqueen MD [facility] Procedures Code Procedure Name Date Entry Date Standard Desc ription CPT-84818 Nexplanon Removal 15:40:28 CDT CPT-32105 Sono transvag pelvis non OB uterus ovari es cervix - XRAY USE ONLY 08:58:14 [employer] CPT-80306 UA w micro - LAB USE ONLY 16:04:56 [employer]LE [employer]VER 2015 CPT-72043 Wet Prep/GEN - LAB USE ONLY 16:04:56 [employer]LE [employer] CARVER 20 08/10/29 CPT-95855 First Vx - Ix admin via ID I M or jet injects without counseling by physician 16:57:10 CDT CPT-74665 Fluzone Preservative Free Intramuscular Suspension 16:57:10 CDT CPT-J0696 Rocephin 1000 mg (Ceftriaxone) 11:49:23 CDT CPT-J1040 Depo Medrol 80 mg (Methyl Prednisolone A cetate) 11:49:23 CDT CPT-J1100 Decadron 8mg (Dexamethasone) 11:49:23 CDT 2 CPT-38111 Abx/Therapy Injection 11:49:23 CDT CPT-23236 Abx/Therapy Injection 11:49:23 CDT CPT-71158 Abd compl w upright 09:07:26 [employer] CPT-81943 Ear Wash 16:12:47 [employer] CPT-OV Office Visit 11:12:01 CDT CPT-OV Office Visit 15:30:23 CDT CPT-67765 Sono pelvis non OB uterus ovaries cervix 15:50:44 CDT CPT-85889 Hand comp min 3V 16:42:32 CDT CPT-12708 Abd compl w upright 12:17:01 CDT CPT-49124 Nexplanon Placement 15:07:39 [employer] CPT-12037 Removal of IUD 15:07:39 [employer] CPT-01904 TB Tubersol 12:09:32 CDT CPT-87160 TB Tubersol 13:55:43 CDT
--- OUTSIDE RECORDS SUMMARY | 2020-03-03 07:46 | XMS REPORT | Clinical Summary ---
Author Author Admin, Diamante Marcelo Organization [facility] Address Unknown Phone Unavailable Allergies, [...] with depression 300.4 Active Brii Ramirez l [employer]PER[employer] Dysthymic disorder URI 465.9 Active Jono Gagnon DO Acu te upper respiratory infections of unspecified site Vaginal bleeding 623.8 Resolved Jose Zhong MD Other specified noninflammatory disorders of vagina High risk sexual behavior V69.2 Active Arie Casper MD High-risk sexual behavior GERD 530.81 Active Arie Casper MD Esophageal reflux Encounter for surveillance of implantable subdermal contraceptiv e Active Brii Petrona [employer] OPER[employer] Vaginal bleeding 623.8 Active Arie Casper MD Other specified noninflammatory disorders of vagina Influenza like illness 487.1 Active Jose Mcwilliams MD Influenza with other respiratory manifestations Sinusitis 473.9 Active Jessica Heaton [employer]PERATOR Unspecified sinusitis (chronic) BREAST CANCER ICD-V16.3 [...] PhD 08/12/16 Symptom, cough ICD-786.2 Inactive Liliana sEtrada MD PhD Vaginal discharge ICD-623.5 Inactive Liliana lares MD PhD Urinary frequency ICD-788.41 Inactive Jose Zhong MD Vaginal bleeding ICD-623.8 Inactive Jose Mcwilliams MD Medication List Medication Instructions Start Date Stop Date Generic Name NDC Status Provider Patient Instruction ZITHROMAX Z-EMIL 250 MG TABS Take two tablets today and then 1 tablet daily for 4 days AZITHROMYCIN [id number] Active Rich Marcelo Active GUAIFENESIN DM 400-20 MG ORAL TABLET 1 pill by mouth t wice daily, if needed for cough DEXTROMETHORPHAN-GUAIFENESIN 20842744289 No Longer Active Rich Rosales MD Active TUSSIONEX PENNKINETIC ER 10-8 MG/5ML ORAL SUSPENSION E XTENDED RELEASE 5ml po q12hr PRN Cough HYDROCOD POLST-CHLORPHEN POLST 53056786092 Active Rich Rosales MD Active CEFDINIR 300 MG ORAL CAPSULE 1 po BID x 10 days CEFDINIR 19968486058 No Longer Active Jillina Franaomi [employer] OPERATOR Active CHERATUSSIN AC 100-10 MG/5ML ORAL SYRUP 1 tsp by mouth every 4 hours as needed for cough GUAIFENESIN-CODEINE 58038785494 No Longe r Active Jillina Ottoniell [employer] OPERATOR Active TAMIFLU 75 MG ORAL CAPSULE 1 po BID x 5 days 0 OSELTAMIVIR PHOSPHATE 79393974142 No Longer Active Jose Zhong MD Activ e ZITHROMAX Z-EMIL 250 MG ORAL TABLET 2 today, then 1 daily for 4 d ays AZITHROMYCIN 92047905577 No Longer Active Arie Casper MD Active PROTONIX 40 MG ORAL TABLET DELAYED RELEASE 1 po q a.m. PANTOPRAZOLE SODIUM 53822636278 No Longer Active Arie Casper MD Active BACTRIM DS 800-160 MG ORAL TABLET 1 tab by mouth twice daily 201 05/02/30 TRIMETHOPRIM-SULFAMETHOXAZOLE 69921733119 No Longer Active R [facility] Ty Active NEXPLANON IMPLANT right arm subcutaneously ETONOGESTREL IMPL 12406909936 No Longer Active Brii Russ APRN Active TUSSIONEX PENNKINETIC ER 10-8 MG/5ML ORAL SUSPENSION E XTENDED RELEASE 5ml po q12hr PRN Cough HYDROCOD POLST-CHLORPHEN POLST 5 3883667419 No Longer Active Brii Russ APRN Active CETIRIZINE HCL 10 MG ORAL TABLET 1 po qd PRN Allergies CETIRIZINE HCL 16576412190 No Longer Active Brii Russ APRN Activ e PREDNISONE 20 MG ORAL TABLET 2 tabs daily for 3 days, 1 tab daily for 3 days, 1/2 tab daily for 2 days PREDNISONE 71559360040 No Longer Active Arie Casper MD Active LOMOTIL 2.5-0.025 MG ORAL TABLET 1 tab po four times a day as needed for diarrhea DIPHENOXYLATE-ATROPINE 68317162161 No Lo nger Active Arie Casper MD Active ZOLOFT 50 MG ORAL TABLET 1 tablet by mouth daily 12/08 SERTRALINE HCL 57474351398 No Longer Active Arie Casper MD Ac tive NAPROXEN 500 MG ORAL TABLET Take 1 tab BID NAPR OXEN 28677119198 No Longer Active Arie Casper MD Active CEFDINIR 300 MG ORAL CAPSULE 1 po BID x 10 days CEFDINIR 42446876808 No Longer Active Brii Russ APRN Active PREDNISONE 20 MG ORAL TABLET 1 tablet daily for airway inflammat ion PREDNISONE 71120643385 No Longer Active Brii Russ APRN A ctive CEFDINIR 300 MG ORAL CAPSULE 1 po BID x 10 days CEFDINIR 94471656327 No Longer Active Jono Gagnon DO Active FLONASE 50 MCG/ACT NASAL SUSPENSION 1 spray each nostr il twice daily for allergies and runny nose until gone FLUT ICASONE PROPIONATE 06109573466 No Longer Active Jono Gagnon DO Active ALPRAZOLAM 0.25 MG ORAL TABLET 1 tablet by mouth every 8 hours as needed for stress ALPRAZOLAM 57083739747 No Longer Active Jono Gagnon DO Active ZITHROMAX Z-EMIL 250 MG ORAL TABLET 2 today, then 1 daily for 4 d ays AZITHROMYCIN 23660051556 No Longer Active Arie Casper MD Active PREDNISONE 20 MG ORAL TABLET 2 tabs daily for 3 days, 1 tab daily for 3 days, 1/2 tab daily for 2 days PREDNISONE 37734037774 No Longer Active Brii Russ APRN Active PREDNISONE 20 MG ORAL TABLET 1 tablet twice daily for 2 days, then 1 tablet once daily for 2 days PREDNISONE 98447606490 No Longer Active Brii Russ APRN Active PROMETHAZINE HCL 12.5 MG ORAL TABLET 1 tablet by mouth every 6 hours as needed for nausea/vomiting PROMETHAZINE HCL 88499712406 No L onger Active Jono Gagnon DO Active CITRATE OF MAGNESIA ORAL SOLUTION 1 bottle today for constipatio n MAGNESIUM CITRATE 43445756205 No Longer Active Jono Gagnon DO Active ZOFRAN 4 MG ORAL TABLET 1 TAB PO Q 6 HRS PRN NAUSEA 07/10/15 ONDANSETRON HCL 22391999886 No Longer Active Brii Russ APRN Acti ve LOMOTIL 2.5-0.025 MG ORAL TABLET 1 to 2 four times a day as needed for diarrhea DIPHENOXYLATE-ATROPINE 96340215455 No Longer Active January Russ APRN Active AMOXICILLIN 500 MG ORAL TABLET 2 tabs twice a day for 10 days 20 07/09/11 AMOXICILLIN 73267355806 No Longer Active Brii Russ APRN Active CYCLOBENZAPRINE HCL 10 MG ORAL TABLET 1/2 - 1 tablet b y mouth three times daily as needed for muscle spasm/pain CYCLOBENZAPRINE HCL 26581169194 No Longer Active Arie Casper MD Active LOMOTIL 2.5-0.025 MG ORAL TABLET 1 to 2 four times a day as needed for diarrhea DIPHENOXYLATE-ATROPINE 59777581387 No Longer Active Fozia Casper MD Active MACROBID 100 MG ORAL CAPSULE 1 cap by mouth twice daily NITROFURANTOIN MONOHYD MACRO 24814236556 No Longer Active Arie Casper MD Active ZYRTEC ALLERGY 10 MG ORAL CAPSULE 1 po qd CE TIRIZINE HCL 47463305115 No Longer Active Arie Casper MD Active AZITHROMYCIN 250 MG ORAL TABLET 2 po qd x 1 day, then 1 po q d x 4 days AZITHROMYCIN 99250308100 No Longer Active Jillina Fra naomi [employer] V[employer]SEL OPERATOR Active PREDNISONE 20 MG ORAL TABLET 2 tabs daily for 3 days, 1 tab daily for 3 days, 1/2 tab daily for 2 days PREDNISONE 91251589920 No Longer Active Jillina Franaomi [employer] V[employer]SEL OPERATOR Active PROMETHAZINE HCL 25 MG ORAL TABLET 1 four times a day as nee ded for vomiting PROMETHAZINE HCL 02417057905 No Longer Active Myrna Roberto MD Active BACTRIM DS 800-160 MG ORAL TABLET 1 twice a day 05/30 SULFAMETHOXAZOLE-TRIMETHOPRIM 43795213603 No Longer Active Myrna Roberto MD Active VICKS DAYQUIL SEVERE COLD/FLU TABLET 1 tab every 6 hours prn 201 02/22/17 [id number] TABS 85231491616 No Longer Active Chris Roberto MD Active GUAIFENESIN-CODEINE 100-10 MG/5ML ORAL SYRUP 2 tsp every 6 hours prn GUAIFENESIN-CODEINE 49230560817 No Longer Active Myrna Roberto MD Active NAPROXEN 500 MG ORAL TABLET one tab PO BID NAPR OXEN 84311239124 No Longer Active Myrna Roberto MD Active AUGMENTIN 875-125 MG ORAL TABLET 1 tab by mouth twice daily with food AMOXICILLIN-POT CLAVULANATE 17106327052 No Longer Act zaid Liliana Estrada MD PhD Active AMOXICILLIN 500 MG ORAL CAPSULE 1 tab by mouth 3 times daily 201 02/21/05 AMOXICILLIN 58465476944 No Longer Active Liliana Estrada MD PhD Active TESSALON PERLES 100 MG ORAL CAPSULE 1 tablet by mouth 3 times da cory BENZONATATE 79913516916 No Longer Active Liliana Estrada MD PhD Active FLAGYL 500 MG ORAL TABLET 1 tablet by mouth two times daily 2014 METRONIDAZOLE 26533049263 No Longer Active Nilam Gus Doran tive ZITHROMAX 250 MG ORAL TABLET 2 po today, then 1 po q days 2-5 20 06/08/16 AZITHROMYCIN 54830222634 No Longer Active Arie Casper MD Active VITAMINS 0.8 MG ORAL TABLET take 1 tab po qday [id number] 44349079968 No Longer Active Arie Casper MD Active IBUPROFEN 800 MG ORAL TABLET take one po Q 8 hours 201 02/01/16 IBUPROFEN 29417431831 No Longer Active Arie Casper MD Acti ve [facility] TUSSIN COUGH/COLD CF 5-10-100 MG/5ML ORAL LIQUID 2 teasp oons every 4 hours [id number] 69798739825 No Longer Active Blaine Casper MD Active COMTREX COLD/COUGH DAY/NITE MS 5-2-10-325 MG ORAL 2 caps deja ry 4 hours [id number] 55121905871 No Longer Active Da aleksandra Casper MD Active CHLORASEPTIC MAX SORE THROAT 15-10 MG MOUTH/THROAT LOZENGE 1 every 2 hours prn BENZOCAINE-MENTHOL 35443952396 No Longer Active Arie Casper MD Active PREDNISONE 20 MG ORAL TABLET 2 tabs daily for 3 days, 1 tab daily for 3 days, 1/2 tab daily for 2 days PREDNISONE 47311218911 No Longer Active Jose Zhong MD Active AZITHROMYCIN 250 MG ORAL TABLET 2 po qd x 1 day, then 1 po q d x 4 days AZITHROMYCIN 90183932917 No Longer Active Jose Mcwilliams MD Active ZOFRAN ODT 4 MG ORAL TABLET DISINTEGRATING 1 po q6hr PRN Nausea ONDANSETRON 37646043286 No Longer Active Rich Rosales MD Active ZOFRAN 4 MG ORAL TABLET 1 tablet every 4 hours ONDANSETRON HCL 92066643927 No Longer Active Rich Rosales MD Activ e MUCINEX 600 MG ORAL TABLET EXTENDED RELEASE 12 HOUR Ta ke 1-2 tablets every 12 hours GUAIFENESIN 82040031844 No Longer Active Rich Rosales MD Active BACTRIM 400-80 MG ORAL TABLET take one po BID SULFAMETHOXAZOLE-TRIMETHOPRIM 64384321254 No Longer Active Abelardo HERNANDEZ Active AZITHROMYCIN 500 MG ORAL TABLET 1 PO q day x 6 days 20 03/02/23 AZITHROMYCIN 37113930661 No Longer Active Tin HERNANDEZ Activ e ZITHROMAX 250 MG ORAL TABLET 2 po today, then 1 po q days 2-5 20 10/03/08 AZITHROMYCIN 93430727740 No Longer Active Arie Casper MD Active ZITHROMAX 250 MG ORAL TABLET 2 po today, then 1 po q days 2-5 20 09/23/25 AZITHROMYCIN 62916933696 No Longer Active Arie Casper MD Active AMOXICILLIN 500 MG ORAL CAPSULE 1 tab by mouth 3 times daily 201 11/24/09 AMOXICILLIN 52821069484 No Longer Active Arie Casper MD Active BACTRIM DS 800-160 MG ORAL TABLET 1 tab by mouth twice daily 201 11/03/14 TRIMETHOPRIM-SULFAMETHOXAZOLE 48363732092 No Longer Active Fozia Casper MD Active AMOXICILLIN 500 MG ORAL TABLET take 1 tab po TID 08/05 AMOXICILLIN 25124370706 No Longer Active Arie Casper MD Acti [...] 4 hours ZOFRAN 4 MG ORAL TABLET 696546 ONDANSETRON HCL Inactive ZOFRAN ODT 4 MG ORAL TABLET DISINTEGRATING 1 po q6hr PRN Nausea ZOFRAN ODT 4 MG ORAL TABLET DISINTEGRATING 014416 ONDAN SETRON Inactive CHLORASEPTIC MAX SORE THROAT 15-10 MG MOUTH/THROAT LOZENGE 1 every 2 hours prn CHLORASEPTIC MAX SORE THROAT 15-10 MG MOUTH/THROAT LOZENGE BENZOCAINE-MENTHOL Inactive COMTREX COLD/COUGH DAY/NITE MS 5-2-10-325 MG ORAL 2 caps deja ry 4 hours COMTREX COLD/COUGH DAY/NITE MS 5-2-10-325 MG ORA L [id number] Inactive [facility] TUSSIN COUGH/COLD CF 5-10-100 MG/5ML ORAL LIQUID 2 teasp oons every 4 hours [facility] TUSSIN COUGH/COLD CF 5-10-100 MG/5ML ORAL LI QUID [id number] Inactive IBUPROFEN 800 MG ORAL TABLET take one po Q 8 hours 201 02/01/16 IBUPROFEN 800 MG ORAL TABLET IBUPROFEN Inactive VITAMINS 0.8 MG ORAL TABLET take 1 tab po qday VITAMINS 0.8 MG ORAL TABLET [id number] E-FA Inactive TESSALON PERLES 100 MG ORAL CAPSULE 1 tablet by mouth 3 times da cory TESSALON PERLES 100 MG ORAL CAPSULE 485123 BENZONATATE Inactive AMOXICILLIN 500 MG ORAL CAPSULE 1 tab by mouth 3 times daily 201 02/21/05 AMOXICILLIN 500 MG ORAL CAPSULE 826120 AMOXICILLIN Inactive GUAIFENESIN-CODEINE 100-10 MG/5ML ORAL SYRUP 2 tsp every 6 hours prn GUAIFENESIN-CODEINE 100-10 MG/5ML ORAL SYRUP 974670 GUAIFENESIN-CODEINE Inactive VICKS DAYQUIL SEVERE COLD/FLU TABLET 1 tab every 6 hours prn 201 02/22/17 VICKS DAYQUIL SEVERE COLD/FLU TABLET PHENYLEPHRI [id number]-TK-APAP TABS Inactive BACTRIM DS 800-160 MG ORAL TABLET 1 twice a day 05/30 BACTRIM DS 800-160 MG ORAL TABLET 447717 SULFAMETHOXAZOLE-TRIMETHOPRIM Inactiv e PROMETHAZINE HCL 25 MG ORAL TABLET 1 four times a day as nee ded for vomiting PROMETHAZINE HCL 25 MG ORAL TABLET 965112 PROMETHAZINE HCL Inactive ZYRTEC ALLERGY 10 MG ORAL CAPSULE 1 po qd ZYRTEC ALLERGY 10 MG ORAL CAPSULE CETIRIZINE HCL Inactive MACROBID 100 MG ORAL CAPSULE 1 cap by mouth twice daily MACROBID 100 MG ORAL CAPSULE 8899280 NITROFURANTOIN MONOHYD MACRO In active LOMOTIL 2.5-0.025 MG ORAL TABLET 1 to 2 four times a day as needed for diarrhea LOMOTIL 2.5-0.025 MG ORAL TABLET 7726656 DIPHENOXYLATE-ATROPINE Inactive CYCLOBENZAPRINE HCL 10 MG ORAL TABLET 1/2 - 1 tablet b y mouth three times daily as needed for muscle spasm/pain CYCLOBEN ZAPRINE HCL 10 MG ORAL TABLET 884077 CYCLOBENZAPRINE HCL Inactive AMOXICILLIN 500 MG ORAL TABLET 2 tabs twice a day for 10 days 20 07/09/11 AMOXICILLIN 500 MG ORAL TABLET 064294 AMOXICILLIN I nactive LOMOTIL 2.5-0.025 MG ORAL TABLET 1 to 2 four times a day as needed for diarrhea LOMOTIL 2.5-0.025 MG ORAL TABLET 2571702 DIPHENOXYLATE-ATROPINE Inactive ZOFRAN 4 MG ORAL TABLET 1 TAB PO Q 6 HRS PRN NAUSEA 20 07/10/15 ZOFRAN 4 MG ORAL TABLET 210567 ONDANSETRON HCL Inactive CITRATE OF MAGNESIA ORAL SOLUTION 1 bottle today for constipatio n CITRATE OF MAGNESIA ORAL SOLUTION 2348176 MAGNESIUM CITR ATE Inactive PROMETHAZINE HCL 12.5 MG ORAL TABLET 1 tablet by mouth every 6 hours as needed for nausea/vomiting PROMETHAZINE HCL 12.5 MG ORA L TABLET 317002 PROMETHAZINE HCL Inactive PREDNISONE 20 MG ORAL TABLET 1 tablet twice daily for 2 days, then 1 tablet once daily for 2 days PREDNISONE 20 MG ORAL TABLET 483708 PREDNISONE Inactive ALPRAZOLAM 0.25 MG ORAL TABLET 1 tablet by mouth every 8 hours as needed for stress ALPRAZOLAM 0.25 MG ORAL TABLET 539016 ALPRA ZOLAM Inactive FLONASE 50 MCG/ACT NASAL SUSPENSION 1 spray each nostr il twice daily for allergies and runny nose until gone FLON ASE 50 MCG/ACT NASAL SUSPENSION 9691261 FLUTICASONE PROPIONATE Inactive PREDNISONE 20 MG ORAL TABLET 1 tablet daily for airway inflammat ion PREDNISONE 20 MG ORAL TABLET 195122 PREDNISONE Odell ctive NAPROXEN 500 MG ORAL TABLET Take 1 tab BID NAPROXEN 500 MG ORAL TABLET 806206 NAPROXEN Inactive ZOLOFT 50 MG ORAL TABLET 1 tablet by mouth daily 12/08 ZOLOFT 50 MG ORAL TABLET 162299 SERTRALINE HCL Inactive LOMOTIL 2.5-0.025 MG ORAL TABLET 1 tab po four times a day as needed for diarrhea LOMOTIL 2.5-0.025 MG ORAL TABLET 1381842 DIPHENOXYLATE-ATROPINE Inactive CETIRIZINE HCL 10 MG ORAL TABLET 1 po qd PRN Allergies CETIRIZINE HCL 10 MG ORAL TABLET 4372646 CETIRIZINE HCL Inactiv e TUSSIONEX PENNKINETIC ER 10-8 MG/5ML ORAL SUSPENSION E XTENDED RELEASE 5ml po q12hr PRN Cough TUSSIONEX PENNKINETI C ER 10-8 MG/5ML ORAL SUSPENSION EXTENDED RELEASE HYDROCOD POLST-CHLORPHEN POLST I nactive NEXPLANON IMPLANT right arm subcutaneously NEXPLANON IMPLANT ETONOGESTREL IMPL Inactive PROTONIX 40 MG ORAL TABLET DELAYED RELEASE 1 po q a.m. PROTONIX 40 MG ORAL TABLET DELAYED RELEASE 510284 PANTOPRAZOLE SODI UM Inactive CHERATUSSIN AC 100-10 MG/5ML ORAL SYRUP 1 tsp by mouth every 4 hours as needed for cough CHERATUSSIN AC 100-10 MG/5ML ORAL SYRUP 9 99595 GUAIFENESIN-CODEINE Inactive GUAIFENESIN DM 400-20 MG ORAL TABLET 1 pill by mouth t wice daily, if needed for cough GUAIFENESIN DM 400-20 MG ORAL TABLET 1147 685 DEXTROMETHORPHAN-GUAIFENESIN Inactive AMOXICILLIN 500 MG ORAL TABLET take 1 tab po TID 08/05 AMOXICILLIN 500 MG ORAL TABLET 977481 AMOXICILLIN Inactive AMOXICILLIN 500 MG ORAL CAPSULE 1 tab by mouth 3 times daily 201 11/24/09 AMOXICILLIN 500 MG ORAL CAPSULE 774053 AMOXICILLIN Inactive ZITHROMAX 250 MG ORAL TABLET 2 po today, then 1 po q days 2-5 20 09/23/25 ZITHROMAX 250 MG ORAL TABLET 204216 AZITHROMYCIN Arlen ctive ZITHROMAX 250 MG ORAL TABLET 2 po today, then 1 po q days 2-5 20 10/03/08 ZITHROMAX 250 MG ORAL TABLET 473623 AZITHROMYCIN Odell ctive AZITHROMYCIN 500 MG ORAL TABLET 1 PO q day x 6 days 20 03/02/23 AZITHROMYCIN 500 MG ORAL TABLET 2848747 AZITHROMYCIN Inactive BACTRIM 400-80 MG ORAL TABLET take one po BID BACTRIM 400- 80 MG ORAL TABLET 793001 SULFAMETHOXAZOLE-TRIMETHOPRIM Inactive AZITHROMYCIN 250 MG ORAL TABLET 2 po qd x 1 day, then 1 po q d x 4 days AZITHROMYCIN 250 MG ORAL TABLET 747685 AZITHROMY ALLISON Inactive PREDNISONE 20 MG ORAL TABLET 2 tabs daily for 3 days, 1 tab daily for 3 days, 1/2 tab daily for 2 days PREDNISONE 20 MG ORAL T ABLET 125473 PREDNISONE Inactive ZITHROMAX 250 MG ORAL TABLET 2 po today, then 1 po q days 2-5 20 06/08/16 ZITHROMAX 250 MG ORAL TABLET 525641 AZITHROMYCIN Arlen ctive FLAGYL 500 MG ORAL TABLET 1 tablet by mouth two times daily 2014 FLAGYL 500 MG ORAL TABLET 215601 METRONIDAZOLE Inacti ve AUGMENTIN 875-125 MG ORAL TABLET 1 tab by mouth twice daily with food AUGMENTIN 875-125 MG ORAL TABLET 450427 AMOXICIL ELSA-POT CLAVULANATE Inactive NAPROXEN 500 MG ORAL TABLET one tab PO BID NAPROXEN 500 MG ORAL TABLET 134893 NAPROXEN Inactive PREDNISONE 20 MG ORAL TABLET 2 tabs daily for 3 days, 1 tab daily for 3 days, 1/2 tab daily for 2 days PREDNISONE 20 MG ORAL T ABLET 260252 PREDNISONE Inactive AZITHROMYCIN 250 MG ORAL TABLET 2 po qd x 1 day, then 1 po q d x 4 days AZITHROMYCIN 250 MG ORAL TABLET 557325 AZITHROMY ALLISON Inactive PREDNISONE 20 MG ORAL TABLET 2 tabs daily for 3 days, 1 tab daily for 3 days, 1/2 tab daily for 2 days PREDNISONE 20 MG ORAL T ABLET 574006 PREDNISONE Inactive ZITHROMAX Z-EMIL 250 MG ORAL TABLET 2 today, then 1 daily for 4 d ays ZITHROMAX Z-EMIL 250 MG ORAL TABLET 171480 AZITHROMYCIN Inactive CEFDINIR 300 MG ORAL CAPSULE 1 po BID x 10 days 12/18 CEFDINIR 300 MG ORAL CAPSULE 434030 CEFDINIR Inactive CEFDINIR 300 MG ORAL CAPSULE 1 po BID x 10 days CEFDINIR 300 MG ORAL CAPSULE 20030127 CEFDINIR Inactive PREDNISONE 20 MG ORAL TABLET 2 tabs daily for 3 days, 1 tab daily for 3 days, 1/2 tab daily for 2 days PREDNISONE 20 MG ORAL T ABLET 020475 PREDNISONE Inactive BACTRIM DS 800-160 MG ORAL TABLET 1 tab by mouth twice daily 201 05/02/30 BACTRIM DS 800-160 MG ORAL TABLET 870410 TRIMETHOPRIM-SULFAMETHOXAZOLE Inactive ZITHROMAX Z-EMIL 250 MG ORAL TABLET 2 today, then 1 daily for 4 d ays ZITHROMAX Z-EMIL 250 MG ORAL TABLET 754495 AZITHROMYCIN Inactive TAMIFLU 75 MG ORAL CAPSULE 1 po BID x 5 days 0 TAMIFLU 75 MG ORAL CAPSULE 658202 OSELTAMIVIR PHOSPHATE Inactive CEFDINIR 300 MG ORAL CAPSULE 1 po BID x 10 days 01/03 CEFDINIR 300 MG ORAL CAPSULE 089112 CEFDINIR Inactive Advance Directives Directive Description Start [...] 5.0-8.5 Encounters Code Encounter Date Provider Facility CPT-45709 Level 3 Est. Patient 11:49:34 MANAGER PUBLIC Jessica boyd [facility] CPT-33005 Level 3 Est. Patient 14:55:50 MANAGER PUBLIC Jose Zhong MD [facility] CPT-65527 Level 3 Est. Patient 10:21:41 MANAGER PUBLIC Arie mcqueen MD [facility] CPT-68165 Level 3 Est. Patient 11:35:15 MANAGER PUBLIC Arie mcqueen MD [facility] CPT-97607 Level 3 Est. Patient 15:40:28 CDT Brii Are ll [facility] CPT-13444 Level 3 Est. Patient 16:40:36 CDT Arie mcqueen MD [facility] CPT-14152 Level 4 Est. Patient 15:29:22 MANAGER PUBLIC Arie mcqueen MD [facility] CPT-40564 Level 3 Est. Patient 15:18:16 MANAGER PUBLIC Jono black [facility] CPT-77316 Level 4 Est. Patient 12:08:40 MANAGER PUBLIC Brii Are ll [facility] CPT-91185 Level 3 Est. Patient 09:24:42 CDT Brii Are ll [facility] CPT-55336 Level 3 Est. Patient 09:12:56 CDT Arie mcqueen MD [facility] CPT-74674 Level 3 Est. Patient 16:40:54 CDT Jose Zhong MD [facility] CPT-15186 Level 2 Est. Patient 13:01:13 CDT Brii Are ll [facility] CPT-67132 Level 3 Est. Patient 11:55:30 MANAGER PUBLIC Jono black [facility] CPT-86623 Level 3 Est. Patient 09:52:36 MANAGER PUBLIC Brii Are ll [facility] CPT-53954 Level 3 Est. Patient 16:25:33 MANAGER PUBLIC Rich Rosales MD [facility] CPT-69214 Level 3 Est. Patient 20:33:55 CDT Arie mcqueen MD [facility] CPT-54319 Level 3 Est. Patient 14:18:20 CDT Rich Rosales MD [facility] CPT-79600 Level 4 Est. Patient 09:34:31 CDT Arie mcqueen MD [facility] CPT-17143 Level 3 Est. Patient 09:08:55 MANAGER PUBLIC Liliana vincent MD PhD [facility] CPT-10413 Level 3 Est. Patient 16:44:07 MANAGER PUBLIC Arie mcqueen MD [facility] CPT-29439 Level 3 Est. Patient 10:44:27 CDT Arie mcqueen MD [facility] CPT-86934 Level 3 Est. Patient 08:55:41 CDT Jose Zhong MD [facility] CPT-41342 Level 3 Est. Patient 18:37:31 CDT Liliana vincent MD PhD [facility] CPT-58573 Level 3 Est. Patient 14:28:23 CDT Abelardo HERNANDEZ [facility] CPT-08589 Level 3 Est. Patient 15:18:13 MANAGER PUBLIC Arie mcqueen MD [facility] CPT-63280 Level 3 Est. Patient 10:11:29 MANAGER PUBLIC Arie mcqueen MD [facility] CPT-87929 Level 3 Est. Patient 10:55:57 MANAGER PUBLIC Jono black DO [facility] CPT-01012 Level 3 Est. Patient 17:29:05 CDT Arie mcqueen MD [facility] Procedures Code Procedure Name Date Entry Date Standard Desc ription CPT-70141 Nexplanon Removal 15:40:28 CDT CPT-96101 Sono transvag pelvis non OB uterus ovari es cervix - XRAY USE ONLY 08:58:14 MANAGER PUBLIC CPT-35607 UA w micro - LAB USE ONLY 16:04:56 MANAGER PUBLIC 2015 CPT-08131 Wet Prep/GEN - LAB USE ONLY 16:04:56 MANAGER PUBLIC 20 08/10/29 CPT-64222 First Vx - Ix admin via ID I M or jet injects without counseling by physician 16:57:10 CDT CPT-81718 Fluzone Preservative Free Intramuscular Suspension 16:57:10 CDT CPT-J0696 Rocephin 1000 mg (Ceftriaxone) 11:49:23 CDT CPT-J1040 Depo Medrol 80 mg (Methyl Prednisolone A cetate) 11:49:23 CDT CPT-J1100 Decadron 8mg (Dexamethasone) 11:49:23 CDT 2 CPT-29790 Abx/Therapy Injection 11:49:23 CDT CPT-64544 Abx/Therapy Injection 11:49:23 CDT CPT-38940 Abd compl w upright 09:07:26 MANAGER PUBLIC CPT-43047 Ear Wash 16:12:47 MANAGER PUBLIC CPT-OV Office Visit 11:12:01 CDT CPT-OV Office Visit 15:30:23 CDT CPT-97978 Sono pelvis non OB uterus ovaries cervix 15:50:44 CDT CPT-58714 Hand comp min 3V 16:42:32 CDT CPT-27373 Abd compl w upright 12:17:01 CDT CPT-01310 Nexplanon Placement 15:07:39 MANAGER PUBLIC CPT-85733 Removal of IUD 15:07:39 MANAGER PUBLIC CPT-42023 TB Tubersol 12:09:32 CDT CPT-76369 TB Tubersol 13:55:43 CDT
--- OUTSIDE RECORDS SUMMARY | 2020-03-03 07:46 | XMS REPORT | Clinical Summary ---
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 PANTOPRAZOLE SODIUM 18751910321 No Longer Active Arie Casper MD Active BACTRIM DS 800-160 MG ORAL TABLET 1 tab by mouth twice daily 201 05/02/30 TRIMETHOPRIM-SULFAMETHOXAZOLE 78561311947 No Longer Active R [facility] Active NEXPLANON IMPLANT right arm subcutaneously ETONOGESTREL IMPL 97824914369 No Longer Active Brii Russ APRN Active TUSSIONEX PENNKINETIC ER 10-8 MG/5ML ORAL SUSPENSION E XTENDED RELEASE 5ml po q12hr PRN Cough HYDROCOD POLST-CHLORPHEN POLST 5 3926318003 No Longer Active Brii Russ APRN Active CETIRIZINE HCL 10 MG ORAL TABLET 1 po qd PRN Allergies CETIRIZINE HCL 83003201407 No Longer Active Brii Russ APRN Activ e PREDNISONE 20 MG ORAL TABLET 2 tabs daily for 3 days, 1 tab daily for 3 days, 1/2 tab daily for 2 days PREDNISONE 22209602938 No Longer Active Arie Casper MD Active LOMOTIL 2.5-0.025 MG ORAL TABLET 1 tab po four times a day as needed for diarrhea DIPHENOXYLATE-ATROPINE 11564863135 No Lo nger Active Arie Casper MD Active ZOLOFT 50 MG ORAL TABLET 1 tablet by mouth daily 12/08 SERTRALINE HCL 72720886696 No Longer Active Arie Casper MD Ac tive NAPROXEN 500 MG ORAL TABLET Take 1 tab BID NAPR OXEN 57151457434 No Longer Active Arie Casper MD Active CEFDINIR 300 MG ORAL CAPSULE 1 po BID x 10 days CEFDINIR 75393924553 No Longer Active Brii Russ APRN Active PREDNISONE 20 MG ORAL TABLET 1 tablet daily for airway inflammat ion PREDNISONE 89140183674 No Longer Active Brii Russ APRN A ctive CEFDINIR 300 MG ORAL CAPSULE 1 po BID x 10 days CEFDINIR 63996233850 No Longer Active Jono Gagnon DO Active FLONASE 50 MCG/ACT NASAL SUSPENSION 1 spray each nostr il twice daily for allergies and runny nose until gone FLUT ICASONE PROPIONATE 99354935516 No Longer Active Jono Gagnon DO Active ALPRAZOLAM 0.25 MG ORAL TABLET 1 tablet by mouth every 8 hours as needed for stress ALPRAZOLAM 59034788042 No Longer Active Jono Gagnon DO Active ZITHROMAX Z-EMIL 250 MG ORAL TABLET 2 today, then 1 daily for 4 d ays AZITHROMYCIN 65174874460 No Longer Active Arie Casper MD Active PREDNISONE 20 MG ORAL TABLET 2 tabs daily for 3 days, 1 tab daily for 3 days, 1/2 tab daily for 2 days PREDNISONE 89942812487 No Longer Active Brii Russ APRN Active PREDNISONE 20 MG ORAL TABLET 1 tablet twice daily for 2 days, then 1 tablet once daily for 2 days PREDNISONE 17880399973 No Longer Active Brii Russ APRN Active PROMETHAZINE HCL 12.5 MG ORAL TABLET 1 tablet by mouth every 6 hours as needed for nausea/vomiting PROMETHAZINE HCL 87580559195 No L onger Active Jono Gagnon DO Active CITRATE OF MAGNESIA ORAL SOLUTION 1 bottle today for constipatio n MAGNESIUM CITRATE 07303230905 No Longer Active Jono Gagnon DO Active ZOFRAN 4 MG ORAL TABLET 1 TAB PO Q 6 HRS PRN NAUSEA 20 07/10/15 ONDANSETRON HCL 29969484997 No Longer Active Brii Russ APRN Acti ve LOMOTIL 2.5-0.025 MG ORAL TABLET 1 to 2 four times a day as needed for diarrhea DIPHENOXYLATE-ATROPINE 84744561615 No Longer Active January Russ APRN Active AMOXICILLIN 500 MG ORAL TABLET 2 tabs twice a day for 10 days 07/09/11 AMOXICILLIN 59685344063 No Longer Active Brii Russ APRN Active CYCLOBENZAPRINE HCL 10 MG ORAL TABLET 1/2 - 1 tablet b y mouth three times daily as needed for muscle spasm/pain CYCLOBENZAPRINE HCL 13947404475 No Longer Active Arie Casper MD Active LOMOTIL 2.5-0.025 MG ORAL TABLET 1 to 2 four times a day as needed for diarrhea DIPHENOXYLATE-ATROPINE 85755920892 No Longer Active Fozia Casper MD Active MACROBID 100 MG ORAL CAPSULE 1 cap by mouth twice daily NITROFURANTOIN MONOHYD MACRO 11541524970 No Longer Active Arie Casper MD Active ZYRTEC ALLERGY 10 MG ORAL CAPSULE 1 po qd CE TIRIZINE HCL 21673368748 No Longer Active Arie Casper MD Active AZITHROMYCIN 250 MG ORAL TABLET 2 po qd x 1 day, then 1 po q d x 4 days AZITHROMYCIN 35733061007 No Longer Active Jessica salgado APRN Active PREDNISONE 20 MG ORAL TABLET 2 tabs daily for 3 days, 1 tab daily for 3 days, 1/2 tab daily for 2 days PREDNISONE 87925776691 No Longer Active Jessica Heaton APRN Active PROMETHAZINE HCL 25 MG ORAL TABLET 1 four times a day as nee ded for vomiting PROMETHAZINE HCL 24979464968 No Longer Active Myrna Roberto MD Active BACTRIM DS 800-160 MG ORAL TABLET 1 twice a day 05/30 SULFAMETHOXAZOLE-TRIMETHOPRIM 61085123840 No Longer Active Myrna Roberto MD Active VICKS DAYQUIL SEVERE COLD/FLU TABLET 1 tab every 6 hours prn 201 02/22/17 [id number] TABS 87012926765 No Longer Active Chris Roberto MD Active GUAIFENESIN-CODEINE 100-10 MG/5ML ORAL SYRUP 2 tsp every 6 hours prn GUAIFENESIN-CODEINE 28282779298 No Longer Active Myrna Roberto MD Active NAPROXEN 500 MG ORAL TABLET one tab PO BID NAPR OXEN 95208490845 No Longer Active Myrna Roberto MD Active AUGMENTIN 875-125 MG ORAL TABLET 1 tab by mouth twice daily with food AMOXICILLIN-POT CLAVULANATE 78074304972 No Longer Act zaid Liliana Estrada MD PhD Active AMOXICILLIN 500 MG ORAL CAPSULE 1 tab by mouth 3 times daily 201 02/21/05 AMOXICILLIN 63578842824 No Longer Active Liliana Estrada MD PhD Active TESSALON PERLES 100 MG ORAL CAPSULE 1 tablet by mouth 3 times da cory BENZONATATE 56110966983 No Longer Active Liliana Estrada MD PhD Active FLAGYL 500 MG ORAL TABLET 1 tablet by mouth two times daily 2014 METRONIDAZOLE 59187990731 No Longer Active Nilam Doran tive ZITHROMAX 250 MG ORAL TABLET 2 po today, then 1 po q days 2-5 20 06/08/16 AZITHROMYCIN 86977227838 No Longer Active Arie Casper MD Active VITAMINS 0.8 MG ORAL TABLET take 1 tab po qday [id number] 79730748568 No Longer Active Arie Casper MD Active IBUPROFEN 800 MG ORAL TABLET take one po Q 8 hours 201 02/01/16 IBUPROFEN 49836100975 No Longer Active Arie Casper MD Acti ve [facility] TUSSIN COUGH/COLD CF 5-10-100 MG/5ML ORAL LIQUID 2 teasp oons every 4 hours [id number] 85282763705 No Longer Active Blaine Casper MD Active COMTREX COLD/COUGH DAY/NITE MS 5-2-10-325 MG ORAL 2 caps deja ry 4 hours [id number] 17731381965 No Longer Active Da aleksandra Casper MD Active CHLORASEPTIC MAX SORE THROAT 15-10 MG MOUTH/THROAT LOZENGE 1 every 2 hours prn BENZOCAINE-MENTHOL 88738397513 No Longer Active Arie Casper MD Active PREDNISONE 20 MG ORAL TABLET 2 tabs daily for 3 days, 1 tab daily for 3 days, 1/2 tab daily for 2 days PREDNISONE 98893206796 No Longer Active Jose Zhong MD Active AZITHROMYCIN 250 MG ORAL TABLET 2 po qd x 1 day, then 1 po q d x 4 days AZITHROMYCIN 59591764627 No Longer Active Jose Mcwilliams MD Active ZOFRAN ODT 4 MG ORAL TABLET DISINTEGRATING 1 po q6hr PRN Nausea ONDANSETRON 79700474649 No Longer Active Rich Rosales MD Active ZOFRAN 4 MG ORAL TABLET 1 tablet every 4 hours ONDANSETRON HCL 40079558629 No Longer Active Rich Rosales MD Activ e MUCINEX 600 MG ORAL TABLET EXTENDED RELEASE 12 HOUR Ta ke 1-2 tablets every 12 hours GUAIFENESIN 91161507118 No Longer Active Rich Rosales MD Active BACTRIM 400-80 MG ORAL TABLET take one po BID SULFAMETHOXAZOLE-TRIMETHOPRIM 59053186697 No Longer Active Abelardo HERNANDEZ Active AZITHROMYCIN 500 MG ORAL TABLET 1 PO q day x 6 days 20 03/02/23 AZITHROMYCIN 24003640136 No Longer Active Tin HERNANDEZ Activ e ZITHROMAX 250 MG ORAL TABLET 2 po today, then 1 po q days 2-5 20 10/03/08 AZITHROMYCIN 05307514774 No Longer Active Arie Casper MD Active ZITHROMAX 250 MG ORAL TABLET 2 po today, then 1 po q days 2-5 20 09/23/25 AZITHROMYCIN 32807744016 No Longer Active Arie Casper MD Active AMOXICILLIN 500 MG ORAL CAPSULE 1 tab by mouth 3 times daily 201 11/24/09 AMOXICILLIN 96437404793 No Longer Active Arie Casper MD Active BACTRIM DS 800-160 MG ORAL TABLET 1 tab by mouth twice daily 201 11/03/14 TRIMETHOPRIM-SULFAMETHOXAZOLE 19923586071 No Longer Active Fozia Casper MD Active AMOXICILLIN 500 MG ORAL TABLET take 1 tab po TID 08/05 AMOXICILLIN 10166788886 No Longer Active Arie Casper MD Acti ve BACTRIM DS 800-160 MG ORAL TABLET 1 tab by mouth twice daily 201 11/03/14 BACTRIM DS 800-160 MG ORAL TABLET 859446 TRIMETHOPRIM-SULFAMETHOXAZOLE Inactive MUCINEX 600 MG ORAL TABLET EXTENDED RELEASE 12 HOUR Ta ke 1-2 tablets every 12 hours MUCINEX 600 MG ORAL TABLET EXTENDED RELEA SE 12 HOUR GUAIFENESIN Inactive ZOFRAN 4 MG ORAL TABLET 1 tablet every 4 hours ZOFRAN 4 MG ORAL TABLET 516492 ONDANSETRON HCL Inactive ZOFRAN ODT 4 MG ORAL TABLET DISINTEGRATING 1 po q6hr PRN Nausea ZOFRAN ODT 4 MG ORAL TABLET DISINTEGRATING 114314 ONDAN SETRON Inactive CHLORASEPTIC MAX SORE THROAT 15-10 MG MOUTH/THROAT LOZENGE 1 every 2 hours prn CHLORASEPTIC MAX SORE THROAT 15-10 MG MOUTH/THROAT LOZENGE BENZOCAINE-MENTHOL Inactive COMTREX COLD/COUGH DAY/NITE MS 5-2-10-325 MG ORAL 2 caps deja ry 4 hours COMTREX COLD/COUGH DAY/NITE MS 5-2-10-325 MG ORA L [id number] Inactive [facility] TUSSIN COUGH/COLD CF 5-10-100 MG/5ML ORAL LIQUID 2 teasp oons every 4 hours [facility] TUSSIN COUGH/COLD CF 5-10-100 MG/5ML ORAL LI QUID [id number] Inactive IBUPROFEN 800 MG ORAL TABLET take one po Q 8 hours 201 02/01/16 IBUPROFEN 800 MG ORAL TABLET 968739 IBUPROFEN Inactive VITAMINS 0.8 MG ORAL TABLET take 1 tab po qday VITAMINS 0.8 MG ORAL TABLET [id number] E-FA Inactive TESSALON PERLES 100 MG ORAL CAPSULE 1 tablet by mouth 3 times da cory TESSALON PERLES 100 MG ORAL CAPSULE 261444 BENZONATATE Inactive AMOXICILLIN 500 MG ORAL CAPSULE 1 tab by mouth 3 times daily 201 02/21/05 AMOXICILLIN 500 MG ORAL CAPSULE 146868 AMOXICILLIN Inactive GUAIFENESIN-CODEINE 100-10 MG/5ML ORAL SYRUP 2 tsp every 6 hours prn GUAIFENESIN-CODEINE 100-10 MG/5ML ORAL SYRUP 972503 GUAIFENESIN-CODEINE Inactive VICKS DAYQUIL SEVERE COLD/FLU TABLET 1 tab every 6 hours prn 201 02/22/17 VICKS DAYQUIL SEVERE COLD/FLU TABLET PHENYLEPHRI [id number] TABS Inactive BACTRIM DS 800-160 MG ORAL TABLET 1 twice a day 05/30 BACTRIM DS 800-160 MG ORAL TABLET 101436 SULFAMETHOXAZOLE-TRIMETHOPRIM Inactiv e PROMETHAZINE HCL 25 MG ORAL TABLET 1 four times a day as nee ded for vomiting PROMETHAZINE HCL 25 MG ORAL TABLET 457824 PROMETHAZINE HCL Inactive ZYRTEC ALLERGY 10 MG ORAL CAPSULE 1 po qd ZYRTEC ALLERGY 10 MG ORAL CAPSULE CETIRIZINE HCL Inactive MACROBID 100 MG ORAL CAPSULE 1 cap by mouth twice daily MACROBID 100 MG ORAL CAPSULE 3779875 NITROFURANTOIN MONOHYD MACRO In active LOMOTIL 2.5-0.025 MG ORAL TABLET 1 to 2 four times a day as needed for diarrhea LOMOTIL 2.5-0.025 MG ORAL TABLET 0687332 DIPHENOXYLATE-ATROPINE Inactive CYCLOBENZAPRINE HCL 10 MG ORAL TABLET 1/2 - 1 tablet b y mouth three times daily as needed for muscle spasm/pain CYCLOBEN ZAPRINE HCL 10 MG ORAL TABLET 172987 CYCLOBENZAPRINE HCL Inactive AMOXICILLIN 500 MG ORAL TABLET 2 tabs twice a day for 10 days 07/09/11 AMOXICILLIN 500 MG ORAL TABLET 574830 AMOXICILLIN I nactive LOMOTIL 2.5-0.025 MG ORAL TABLET 1 to 2 four times a day as needed for diarrhea LOMOTIL 2.5-0.025 MG ORAL TABLET 4661152 DIPHENOXYLATE-ATROPINE Inactive ZOFRAN 4 MG ORAL TABLET 1 TAB PO Q 6 HRS PRN NAUSEA 07/10/15 ZOFRAN 4 MG ORAL TABLET 689010 ONDANSETRON HCL Inactive CITRATE OF MAGNESIA ORAL SOLUTION 1 bottle today for constipatio n CITRATE OF MAGNESIA ORAL SOLUTION 3891535 MAGNESIUM CITR ATE Inactive PROMETHAZINE HCL 12.5 MG ORAL TABLET 1 tablet by mouth every 6 hours as needed for nausea/vomiting PROMETHAZINE HCL 12.5 MG ORA L TABLET 278957 PROMETHAZINE HCL Inactive PREDNISONE 20 MG ORAL TABLET 1 tablet twice daily for 2 days, then 1 tablet once daily for 2 days PREDNISONE 20 MG ORAL TABLET 205864 PREDNISONE Inactive ALPRAZOLAM 0.25 MG ORAL TABLET 1 tablet by mouth every 8 hours as needed for stress ALPRAZOLAM 0.25 MG ORAL TABLET 954553 ALPRA ZOLAM Inactive FLONASE 50 MCG/ACT NASAL SUSPENSION 1 spray each nostr il twice daily for allergies and runny nose until gone FLON ASE 50 MCG/ACT NASAL SUSPENSION 1596645 FLUTICASONE PROPIONATE Inactive PREDNISONE 20 MG ORAL TABLET 1 tablet daily for airway inflammat ion PREDNISONE 20 MG ORAL TABLET 545610 PREDNISONE [place] ctive NAPROXEN 500 MG ORAL TABLET Take 1 tab BID NAPROXEN 500 MG ORAL TABLET 921953 NAPROXEN Inactive ZOLOFT 50 MG ORAL TABLET 1 tablet by mouth daily 12/08 ZOLOFT 50 MG ORAL TABLET 665754 SERTRALINE HCL Inactive LOMOTIL 2.5-0.025 MG ORAL TABLET 1 tab po four times a day as needed for diarrhea LOMOTIL 2.5-0.025 MG ORAL TABLET 2565686 DIPHENOXYLATE-ATROPINE Inactive CETIRIZINE HCL 10 MG ORAL TABLET 1 po qd PRN Allergies CETIRIZINE HCL 10 MG ORAL TABLET 4998784 CETIRIZINE HCL Inactiv e TUSSIONEX PENNKINETIC ER 10-8 MG/5ML ORAL SUSPENSION E XTENDED RELEASE 5ml po q12hr PRN Cough TUSSIONEX PENNKINETI C ER 10-8 MG/5ML ORAL SUSPENSION EXTENDED RELEASE HYDROCOD POLST-CHLORPHEN POLST I nactive NEXPLANON IMPLANT right arm subcutaneously NEXPLANON IMPLANT ETONOGESTREL IMPL Inactive PROTONIX 40 MG ORAL TABLET DELAYED RELEASE 1 po q a.m. PROTONIX 40 MG ORAL TABLET DELAYED RELEASE 456373 PANTOPRAZOLE SODI UM Inactive AMOXICILLIN 500 MG ORAL TABLET take 1 tab po TID 08/05 AMOXICILLIN 500 MG ORAL TABLET 747841 AMOXICILLIN Inactive AMOXICILLIN 500 MG ORAL CAPSULE 1 tab by mouth 3 times daily 201 11/24/09 AMOXICILLIN 500 MG ORAL CAPSULE 885855 AMOXICILLIN Inactive ZITHROMAX 250 MG ORAL TABLET 2 po today, then 1 po q days 2-5 20 09/23/25 ZITHROMAX 250 MG ORAL TABLET 086627 AZITHROMYCIN [place] ctive ZITHROMAX 250 MG ORAL TABLET 2 po today, then 1 po q days 2-5 20 10/03/08 ZITHROMAX 250 MG ORAL TABLET 034866 AZITHROMYCIN [place] ctive AZITHROMYCIN 500 MG ORAL TABLET 1 PO q day x 6 days 20 03/02/23 AZITHROMYCIN 500 MG ORAL TABLET 2122067 AZITHROMYCIN Inactive BACTRIM 400-80 MG ORAL TABLET take one po BID BACTRIM 400- 80 MG ORAL TABLET 860997 SULFAMETHOXAZOLE-TRIMETHOPRIM Inactive AZITHROMYCIN 250 MG ORAL TABLET 2 po qd x 1 day, then 1 po q d x 4 days AZITHROMYCIN 250 MG ORAL TABLET 807039 AZITHROMY ALLISON Inactive PREDNISONE 20 MG ORAL TABLET 2 tabs daily for 3 days, 1 tab daily for 3 days, 1/2 tab daily for 2 days PREDNISONE 20 MG ORAL T ABLET 078162 PREDNISONE Inactive ZITHROMAX 250 MG ORAL TABLET 2 po today, then 1 po q days 2-5 20 06/08/16 ZITHROMAX 250 MG ORAL TABLET 215020 AZITHROMYCIN [place] ctive FLAGYL 500 MG ORAL TABLET 1 tablet by mouth two times daily 2014 FLAGYL 500 MG ORAL TABLET 069858 METRONIDAZOLE Inacti ve AUGMENTIN 875-125 MG ORAL TABLET 1 tab by mouth twice daily with food AUGMENTIN 875-125 MG ORAL TABLET 138789 AMOXICIL ELSA-POT CLAVULANATE Inactive NAPROXEN 500 MG ORAL TABLET one tab PO BID NAPROXEN 500 MG ORAL TABLET 133183 NAPROXEN Inactive PREDNISONE 20 MG ORAL TABLET 2 tabs daily for 3 days, 1 tab daily for 3 days, 1/2 tab daily for 2 days PREDNISONE 20 MG ORAL T ABLET 326750 PREDNISONE Inactive AZITHROMYCIN 250 MG ORAL TABLET 2 po qd x 1 day, then 1 po q d x 4 days AZITHROMYCIN 250 MG ORAL TABLET 138710 AZITHROMY ALLISON Inactive PREDNISONE 20 MG ORAL TABLET 2 tabs daily for 3 days, 1 tab daily for 3 days, 1/2 tab daily for 2 days PREDNISONE 20 MG ORAL T ABLET 705771 PREDNISONE Inactive ZITHROMAX Z-EMIL 250 MG ORAL TABLET 2 today, then 1 daily for 4 d ays ZITHROMAX Z-EMIL 250 MG ORAL TABLET 591912 AZITHROMYCIN Inactive CEFDINIR 300 MG ORAL CAPSULE 1 po BID x 10 days 12/18 CEFDINIR 300 MG ORAL CAPSULE 539433 CEFDINIR Inactive CEFDINIR 300 MG ORAL CAPSULE 1 po BID x 10 days CEFDINIR 300 MG ORAL CAPSULE 665845 CEFDINIR Inactive PREDNISONE 20 MG ORAL TABLET 2 tabs daily for 3 days, 1 tab daily for 3 days, 1/2 tab daily for 2 days PREDNISONE 20 MG ORAL T ABLET 734163 PREDNISONE Inactive BACTRIM DS 800-160 MG ORAL TABLET 1 tab by mouth twice daily 201 05/02/30 BACTRIM DS 800-160 MG ORAL TABLET 650097 TRIMETHOPRIM-SULFAMETHOXAZOLE Inactive ZITHROMAX Z-EMIL 250 MG ORAL TABLET 2 today, then 1 daily for 4 d ays ZITHROMAX Z-EMIL 250 MG ORAL TABLET 087903 AZITHROMYCIN Inactive TAMIFLU 75 MG ORAL CAPSULE 1 po BID x 5 days 0 TAMIFLU 75 MG ORAL CAPSULE 359707 OSELTAMIVIR PHOSPHATE Inactive Advance Directives Directive Description [...] Description Lab Report: [facility], [facility] H[facility] leukocyte count, blood 7.8 [...] bilirubin, urine Negative Negative pH, urine, semiquantitative 5.5 5.0-8.5 specific gravity, urine 1.020 1.000-1.030 appearance, urine Clear Clear urine color Yellow Colorless;Lightyellow;St raw;Yellow Encounters Code Encounter Date Provider Facility CPT-95968 Level 3 Est. Patient 14:55:50 GRAPHIC USER INTERFACE DESIGNER Jose Zhong MD [facility] CPT-76247 Level 3 Est. Patient 10:21:41 GRAPHIC USER INTERFACE DESIGNER Arie mcqueen MD [facility] CPT-71430 Level 3 Est. Patient 11:35:15 GRAPHIC USER INTERFACE DESIGNER Arie mcqueen MD [facility] CPT-33734 Level 3 Est. Patient 15:40:28 RENAE escalante APRN [facility] CPT-38527 Level 3 Est. Patient 16:40:36 CDT Arie mcqueen MD [facility] CPT-34942 Level 4 Est. Patient 15:29:22 GRAPHIC USER INTERFACE DESIGNER Arie mcqueen MD [facility] CPT-50270 Level 3 Est. Patient 15:18:16 GRAPHIC USER INTERFACE DESIGNER Jono black [facility] CPT-64225 Level 4 Est. Patient 12:08:40 GRAPHIC USER INTERFACE DESIGNER Brii Are ll [facility] [place][note 2] CPT-06555 Level 3 Est. Patient 09:24:42 CDT Brii Are [facility] CPT-01763 Level 3 Est. Patient 09:12:56 CDT Arie mcqueen MD [facility] CPT-32543 Level 3 Est. Patient 16:40:54 CDT Jose Zhong MD [facility] CPT-33914 Level 2 Est. Patient 13:01:13 CDT Brii Are ll [facility] [place][note 2] CPT-11070 Level 3 Est. Patient 11:55:30 GRAPHIC USER INTERFACE DESIGNER Jono black [facility] CPT-38589 Level 3 Est. Patient 09:52:36 GRAPHIC USER INTERFACE DESIGNER Brii Are ll [facility] CPT-74928 Level 3 Est. Patient 16:25:33 GRAPHIC USER INTERFACE DESIGNER Rich Rosales MD [facility] CPT-93481 Level 3 Est. Patient 20:33:55 CDT Arie mcqueen MD [facility] CPT-35347 Level 3 Est. Patient 14:18:20 CDT Rich Rosales MD [facility] CPT-36981 Level 4 Est. Patient 09:34:31 CDT Arie mcqueen MD [facility] CPT-50558 Level 3 Est. Patient 09:08:55 GRAPHIC USER INTERFACE DESIGNER Liliana vincent MD PhD [facility] CPT-02897 Level 3 Est. Patient 16:44:07 GRAPHIC USER INTERFACE DESIGNER Arie mcqueen MD [facility] CPT-16662 Level 3 Est. Patient 10:44:27 CDT Arie mcqueen MD [facility] CPT-51534 Level 3 Est. Patient 08:55:41 CDT Jose Zhong MD [facility] CPT-10937 Level 3 Est. Patient 18:37:31 CDT Liliana vincent MD PhD [facility] CPT-67240 Level 3 Est. Patient 14:28:23 CDT Abelardo HERNANDEZ [facility] CPT-61988 Level 3 Est. Patient 15:18:13 GRAPHIC USER INTERFACE DESIGNER Arie mcqueen MD [facility] CPT-13135 Level 3 Est. Patient 10:11:29 GRAPHIC USER INTERFACE DESIGNER Arie mcqueen MD [facility] CPT-13925 Level 3 Est. Patient 10:55:57 GRAPHIC USER INTERFACE DESIGNER Jono black DO [facility] CPT-14799 Level 3 Est. Patient 17:29:05 CDT Arie mcqueen MD [facility] Procedures Code Procedure Name Date Entry Date Standard Desc ription CPT-69888 Nexplanon Removal 15:40:28 CDT CPT-94619 Sono transvag pelvis non OB uterus ovari es cervix - XRAY USE ONLY 08:58:14 GRAPHIC USER INTERFACE DESIGNER CPT-21127 UA w micro - LAB USE ONLY 16:04:56 GRAPHIC USER INTERFACE DESIGNER 2015 CPT-30637 Wet Prep/GEN - LAB USE ONLY 16:04:56 GRAPHIC USER INTERFACE DESIGNER 20 08/10/29 CPT-01093 First Vx - Ix admin via ID I M or jet injects without counseling by physician 16:57:10 CDT CPT-29936 Fluzone Preservative Free Intramuscular Suspension 16:57:10 CDT CPT-J0696 Rocephin 1000 mg (Ceftriaxone) 11:49:23 CDT CPT-J1040 Depo Medrol 80 mg (Methyl Prednisolone A cetate) 11:49:23 CDT CPT-J1100 Decadron 8mg (Dexamethasone) 11:49:23 CDT 2 CPT-91130 Abx/Therapy Injection 11:49:23 CDT CPT-93647 Abx/Therapy Injection 11:49:23 CDT CPT-80529 Abd compl w upright 09:07:26 GRAPHIC USER INTERFACE DESIGNER CPT-29972 Ear Wash 16:12:47 GRAPHIC USER INTERFACE DESIGNER CPT-OV Office Visit 11:12:01 CDT CPT-OV Office Visit 15:30:23 CDT CPT-45132 Sono pelvis non OB uterus ovaries cervix 15:50:44 CDT CPT-58953 Hand comp min 3V 16:42:32 CDT CPT-16274 Abd compl w upright 12:17:01 CDT CPT-63291 Nexplanon Placement 15:07:39 GRAPHIC USER INTERFACE DESIGNER CPT-04384 Removal of IUD 15:07:39 GRAPHIC USER INTERFACE DESIGNER CPT-88087 TB Tubersol 12:09:32 CDT CPT-86560 TB Tubersol 13:55:43 CDT
--- OUTSIDE RECORDS SUMMARY | 2020-03-03 07:47 | XMS REPORT | Clinical Summary ---
Author Author Admin, Diamante Marcelo Organization [facility] Address Unknown Phone Unavailable Allergies, Adverse [...] TAB one tab PO BID NAPROXEN [id number] Active Myrna Roberto MD Active LOMOTIL 2.5-0.025 MG TABS 1 to 2 four times a day as needed for diarrhea DIPHENOXYLATE-ATROPINE [id number] Active Rich mcintosh MD Active PROMETHAZINE HCL 25 MG TABS 1 four times a day as needed for vomiting PROMETHAZINE HCL 00882544797 Active Rich Rosales MD Active BACTRIM DS 800-160 MG TABS 1 twice a day SULFAMETHOXAZOLE-TRIMETHOPRIM 05664070431 Active Rich Rosales MD Active AUGMENTIN 875-125 MG TAB 1 tab by mouth twice daily with food 20 08/12/16 AMOXICILLIN-POT CLAVULANATE 48464591067 No Longer Active Liliana Estrada MD PhD Active CYCLOBENZAPRINE HCL 10 MG TABS 1/2 - 1 tablet by mouth three times daily as needed for muscle spasm/pain CYCLOBENZAPRINE HCL 40131 037905 Active Liliana Estrada MD PhD Active GUAIFENESIN-CODEINE 100-10 MG/5ML ORAL SYRP 2 tsp every 6 hours prn GUAIFENESIN-CODEINE 78525003991 Active Liliana Estrada MD PhD Active VICKS DAYQUIL SEVERE COLD/FLU TABS 1 tab every 6 hours prn [id number] TABS 68816123271 Active Liliana Estrada MD PhD Active AMOXICILLIN 500 MG CAP 1 tab by mouth 3 times daily 08/12/16 AMOXICILLIN 92198939502 No Longer Active Liliana Estrada MD PhD Acti ve TESSALON PERLES 100 MG CAP 1 tablet by mouth 3 times daily 11/01 BENZONATATE 99774621081 No Longer Active Liliana Estrada MD PhD Active FLAGYL 500 MG TAB 1 tablet by mouth two times daily 07/11/29 METRONIDAZOLE 20481592099 No Longer Active Nilam Weber Active ZITHROMAX 250 MG TAB 2 po today, then 1 po q days 2-5 AZITHROMYCIN 43581929320 No Longer Active Arie Casper MD Acti ve VITAMINS 0.8 MG TABS take 1 tab po qday 08/08 [id number] 67953319446 No Longer Active Arie Casper MD Active IBUPROFEN 800 MG TABS take one po Q 8 hours IBU PROFEN 79988847360 No Longer Active Arie Casper MD Active [facility] TUSSIN COUGH/COLD CF 5-10-100 MG/5ML LIQD 2 teaspoons ev eliud 4 hours [id number]-HY-GF 11133966816 No Longer Active Blaine Casper MD Active COMTREX COLD/COUGH DAY/NITE MS 5-2-10-325 MG MISC 2 caps deja ry 4 hours [id number] 98348844684 No Longer Active Da aleksandra Casper MD Active CHLORASEPTIC MAX SORE THROAT 15-10 MG LOZG 1 every 2 hours prn 2 BENZOCAINE-MENTHOL 76466488073 No Longer Active Arie Marcelo Active PREDNISONE 20 MG TAB 2 tabs daily for 3 days, 1 t ab daily for 3 days, 1/2 tab daily for 2 days PREDNISONE 31222408708 No Longer Active Jose Zhong MD Active AZITHROMYCIN 250 MG TABS 2 po qd x 1 day, then 1 po qd x 4 days AZITHROMYCIN 26738526825 No Longer Active Jose Zhong MD Active ZOFRAN ODT 4 MG TBDP 1 po q6hr PRN Nausea ONDAN SETRON 86324996716 No Longer Active Rich Rosales MD Active ZOFRAN 4 MG TABS 1 tablet every 4 hours ONDANSE JERRELL HCL 13663914302 No Longer Active Rich Rosales MD Active MUCINEX 600 MG [id number] Take 1-2 tablets every 12 hours GUAIFENESIN 76248855112 No Longer Active Rich Rosales MD Activ e BACTRIM 400-80 MG TABS take one po BID SULFAMETHOXAZOLE-TRIMETHOPRIM 61095854463 No Longer Active Abelardo HERNANDEZ Active AZITHROMYCIN 500 MG TABS 1 PO q day x 6 days AZ ITHROMYCIN 68811217671 No Longer Active Tin HERNANDEZ Active ZITHROMAX 250 MG TAB 2 po today, then 1 po q days 2-5 AZITHROMYCIN 74284459621 No Longer Active Arie Casper MD Acti ve ZITHROMAX 250 MG TAB 2 po today, then 1 po q days 2-5 AZITHROMYCIN 05896003591 No Longer Active Arie Casper MD Acti ve AMOXICILLIN 500 MG CAP 1 tab by mouth 3 times daily 09/23/20 AMOXICILLIN 93954923897 No Longer Active Arie Casper MD Acti ve BACTRIM DS 800-160 MG TAB 1 tab by mouth twice daily 2 TRIMETHOPRIM-SULFAMETHOXAZOLE 52062608148 No Longer Active Arie Casper MD Active AMOXICILLIN 500 MG TABS take 1 tab po TID AMOXI CILLIN 65607515337 No Longer Active Arie Casper MD Active BACTRIM DS 800-160 MG TAB 1 tab by mouth twice daily 2 BACTRIM DS 800-160 MG TAB TRIMETHOPRIM-SULFAMETHOXAZOLE Inac tive MUCINEX 600 MG [id number]-SOD Take 1-2 tablets every 12 hours MUCINEX 600 MG [id number] GUAIFENESIN Inactive ZOFRAN 4 MG TABS 1 tablet every 4 hours ZOFRAN 4 MG TABS 961880 ONDANSETRON HCL Inactive ZOFRAN ODT 4 MG TBDP 1 po q6hr PRN Nausea ZOFRAN ODT 4 MG TBDP 475538 ONDANSETRON Inactive CHLORASEPTIC MAX SORE THROAT 15-10 MG LOZG 1 every 2 hours prn 2 014/04/30 CHLORASEPTIC MAX SORE THROAT 15-10 MG LOZG BENZO ARINA-MENTHOL Inactive COMTREX COLD/COUGH DAY/NITE MS 5-2-10-325 MG MISC 2 caps deja ry 4 hours COMTREX COLD/COUGH DAY/NITE MS 5-2-10-325 MG MIS C [id number] Inactive [facility] TUSSIN COUGH/COLD CF 5-10-100 MG/5ML LIQD 2 teaspoons ev eliud 4 hours [facility] TUSSIN COUGH/COLD CF 5-10-100 MG/5ML LIQD [id number] Inactive IBUPROFEN 800 MG TABS take one po Q 8 hours IBUPROFEN 800 MG TABS 575219 IBUPROFEN Inactive VITAMINS 0.8 MG TABS take 1 tab po qday 08/08 VITAMINS 0.8 MG TABS [id number] Inactive TESSALON PERLES 100 MG CAP 1 tablet by mouth 3 times daily 11/01 TESSALON PERLES 100 MG CAP 214437 BENZONATATE Inact zaid AMOXICILLIN 500 MG CAP 1 tab by mouth 3 times daily 08/12/16 AMOXICILLIN 500 MG CAP 641128 AMOXICILLIN Inactive AMOXICILLIN 500 MG TABS take 1 tab po TID AMOXICILLIN 500 MG TABS 250279 AMOXICILLIN Inactive AMOXICILLIN 500 MG CAP 1 tab by mouth 3 times daily 09/23/20 AMOXICILLIN 500 MG CAP 005176 AMOXICILLIN Inactive ZITHROMAX 250 MG TAB 2 po today, then 1 po q days 2-5 ZITHROMAX 250 MG TAB 5533504 AZITHROMYCIN Inactive ZITHROMAX 250 MG TAB 2 po today, then 1 po q days 2-5 ZITHROMAX 250 MG TAB 2748449 AZITHROMYCIN Inactive AZITHROMYCIN 500 MG TABS 1 PO q day x 6 days 3 AZITHROMYCIN 500 MG TABS 1378825 AZITHROMYCIN Inactive BACTRIM 400-80 MG TABS take one po BID BA CTRIM 400-80 MG TABS 105030 SULFAMETHOXAZOLE-TRIMETHOPRIM Inactive AZITHROMYCIN 250 MG TABS 2 po qd x 1 day, then 1 po qd x 4 days AZITHROMYCIN 250 MG TABS 6966780 AZITHROMYCIN Inactiv e PREDNISONE 20 MG TAB 2 tabs daily for 3 days, 1 t ab daily for 3 days, 1/2 tab daily for 2 days PREDNISONE 20 MG TAB 309131 PREDNISON E Inactive ZITHROMAX 250 MG TAB 2 po today, then 1 po q days 2-5 ZITHROMAX 250 MG TAB 5060803 AZITHROMYCIN Inactive FLAGYL 500 MG TAB 1 tablet by mouth two times daily 07/11/29 FLAGYL 500 MG TAB 497547 METRONIDAZOLE Inactive AUGMENTIN 875-125 MG TAB 1 tab by mouth twice daily with food 20 08/12/16 AUGMENTIN 875-125 MG TAB 628861 AMOXICILLIN-POT CLAVULA ANGELO Inactive Advance Directives Directive [...] 214 10^3/MM^3 10*3/mm3 142-424 Lab Report: Chlamydia/GC APTIMA/[id number] - Lab chlamydia DNA probe NOT DETECTED NOT DETECTED Lab Report: Chlamydia/GC APTIMA/[id number] - Microbiology Neisseria gonorrhoeae DNA probe NOT [...] 5.0-8.5 Encounters Code Encounter Date Provider Facility CPT-[id number] Level 3 Est. Patient 14:18:20 CDT Rich Rosales MD [facility] CPT-22501 Level 4 Est. Patient 09:34:31 CDT Arie mcqueen MD [facility]-41129 Level 3 Est. Patient 09:08:55 [employer] Liliana vincent MD PhD 13453 Level 3 Est. Patient 16:44:07 [employer] Arie mcqueen MD [facility] CPT-93935 Level 3 Est. Patient 10:44:27 CDT Arie mcqueen MD [facility] CPT-28381 Level 3 Est. Patient 08:55:41 CDT Jose Zhong MD [facility]-57074 Level 3 Est. Patient 18:37:31 CDT Liliana vincent MD PhD [facility]-44638 Level 3 Est. Patient 14:28:23 CDT Abelardo HERNANDEZ [facility]-40675 Level 3 Est. Patient 15:18:13 [employer] Arie mcqueen MD [facility]-85649 Level 3 Est. Patient 10:11:29 [employer] Arie mcqueen MD [facility]-33477 Level 3 Est. Patient 10:55:57 [employer] Jono black DO [facility] CPT-33259 Level 3 Est. Patient 17:29:05 CDT Arie mcqueen MD [facility] Procedures Code Procedure Name Date Entry Date Standard Desc ription CPT-OV Office Visit 15:30:23 CDT CPT-66210 Sono pelvis non OB uterus ovaries cervix 15:50:44 CDT CPT-80179 Hand comp min 3V 16:42:32 CDT CPT-17003 Abd compl w upright 12:17:01 CDT CPT-54029 Nexplanon Placement 15:07:39 [employer] CPT-35114 Removal of IUD 15:07:39 [employer] CPT-02690 TB Tubersol 12:09:32 CDT CPT-30967 TB Tubersol 13:55:43 CDT
--- OUTSIDE RECORDS SUMMARY | 2020-03-03 07:47 | XMS REPORT | Clinical Summary ---
Author Author Admin, Diamante Marcelo Organization [employer] Address Unknown Phone Unavailable Allergies, Adverse [...] site Abdominal pain 789.00 Active Brii Larson SPICE FUMIGATOR Abdominal pain, unspecified site Diarrhea 787.91 Resolved [...] cute pharyngitis Nausea 787.02 Active Brii Larson SPICE FUMIGATOR Nausea alone URI 465.9 Active Jono Gagnon [...] Anxiety with depression 300.4 Active Glenn Larson SPICE FUMIGATOR Dysthymic disorder URI 465.9 Active Jono Gagnon [...] MG TAB Take 1 tab BID NAPROXEN 450471656 15 Active Brii Larson APRN Active NEXPLANON IMPL Left arm subcutaneously ETONOGES TREL IMPL 92303921140 Active Brii Larson APRN Active CEFDINIR 300 MG CAPS 1 po BID x 10 days CEFDINI R 97098420955 No Longer Active Brii Larson APRN Active PREDNISONE 20 MG TAB 1 tablet daily for airway inflammation 2015 PREDNISONE 03378845730 No Longer Active Brii Larson APRN Active CEFDINIR 300 MG CAPS 1 po BID x 10 days CEFDINI R 71433789174 No Longer Active Jono W Kalin DO Active FLONASE 50 MCG/ACT SUSP 1 spray each nostril twice d aily for allergies and runny nose until gone FLUTICASONE PROPIONATE No Longe r Active Jono Gagnon DO Active ALPRAZOLAM 0.25 MG TAB 1 tablet by mouth every 8 hours as ne eded for stress ALPRAZOLAM 02194981054 No Longer Active Jono Gagnon DO Active ZOLOFT 50 MG TAB 1 tablet by mouth daily SERTRA LINE HCL 17711720714 Active Arie Casper MD Active LOMOTIL 2.5-0.025 MG TAB 1 tab po four times a day as needed for diarrhea DIPHENOXYLATE-ATROPINE 70817261451 Active Brii Larson APRN Active ZITHROMAX Z-EMIL 250 MG TABS 2 today, then 1 daily for 4 days 201 03/31/18 AZITHROMYCIN 72524251577 No Longer Active Arie Casper MD Active PROTONIX 40 MG ORAL TBEC 1 po q a.m. PANTOPRAZO LE SODIUM 38278164884 Active Arie Casper MD Active PREDNISONE 20 MG TAB 2 tabs daily for 3 days, 1 t ab daily for 3 days, 1/2 tab daily for 2 days PREDNISONE 87202151454 No Longer Active Brii Larson APRN Active PREDNISONE 20 MG TAB 1 tablet twice daily for 2 d ays, then 1 tablet once daily for 2 days PREDNISONE 16067181294 No Longer Active Brii Larson APRN Active PROMETHAZINE HCL 12.5 MG TABS 1 tablet by mouth every 6 hours as needed for nausea/vomiting PROMETHAZINE HCL 06194220912 No Longe r Active Jono Gagnon DO Active CITRATE OF MAGNESIA ORAL SOLN 1 bottle today for constipation 20 07/10/15 MAGNESIUM CITRATE 64393640113 No Longer Active Jono Gagnon DO Active ZOFRAN 4 MG ORAL TABS 1 TAB PO Q 6 HRS PRN NAUSEA 2014 ONDANSETRON HCL 32378458806 No Longer Active Brii Larson APRN A ctive LOMOTIL 2.5-0.025 MG TAB 1 to 2 four times a day as needed f or diarrhea DIPHENOXYLATE-ATROPINE 40435627130 No Longer Active January Larson APRN Active AMOXICILLIN 500 MG TABS 2 tabs twice a day for 10 days AMOXICILLIN 77424237854 No Longer Active Brii Larson APRN Acti ve CYCLOBENZAPRINE HCL 10 MG TABS 1/2 - 1 tablet by mouth three times daily as needed for muscle spasm/pain CYCLOBENZAPRINE HCL 05330337654 No Longer Active Arie Casper MD Active LOMOTIL 2.5-0.025 MG TABS 1 to 2 four times a day as needed for diarrhea DIPHENOXYLATE-ATROPINE 41667848446 No Longer Active D freddy Casper MD Active MACROBID 100 MG CAP 1 cap by mouth twice daily NITROFURANTOIN MONOHYD MACRO 35620016327 No Longer Active Arie Casper MD Active ZYRTEC ALLERGY 10 MG CAPS 1 po qd CETIRIZINE HCL 59858313050 No Longer Active Arie Casper MD Active AZITHROMYCIN 250 MG TABS 2 po qd x 1 day, then 1 po qd x 4 days AZITHROMYCIN 56892269122 No Longer Active Jillina Frazelanette CABRERA Active PREDNISONE 20 MG TAB 2 tabs daily for 3 days, 1 t ab daily for 3 days, 1/2 tab daily for 2 days PREDNISONE 89964014668 No Longer Active Jillina Frazell RICK Active PROMETHAZINE HCL 25 MG TABS 1 four times a day as needed for vomiting PROMETHAZINE HCL 57479810499 No Longer Active Myrna Roberto MD Active BACTRIM DS 800-160 MG TABS 1 twice a day SULFAMETHOXAZOLE-TRIMETHOPRIM 37974738425 No Longer Active Myrna Roberto MD Active VICKS DAYQUIL SEVERE COLD/FLU TABS 1 tab every 6 hours prn 12/10 [id number]-IS-APAP TABS 67533627427 No Longer Active Myrna leigh MD Active GUAIFENESIN-CODEINE 100-10 MG/5ML ORAL SYRP 2 tsp every 6 hours prn GUAIFENESIN-CODEINE 87483046777 No Longer Active Myrna Roebrto MD Active NAPROXEN 500 MG TAB one tab PO BID NAPROXEN 332 24001388 No Longer Active Myrna Roberto MD Active AUGMENTIN 875-125 MG TAB 1 tab by mouth twice daily with food 20 08/12/16 AMOXICILLIN-POT CLAVULANATE 73003583019 No Longer Active Liliana Estrada MD PhD Active AMOXICILLIN 500 MG CAP 1 tab by mouth 3 times daily 08/12/16 AMOXICILLIN 02476352132 No Longer Active Liliana Estrada MD PhD Acti ve TESSALON PERLES 100 MG CAP 1 tablet by mouth 3 times daily 11/01 BENZONATATE 95746893318 No Longer Active Liliana Estrada MD PhD Active FLAGYL 500 MG TAB 1 tablet by mouth two times daily 07/11/29 METRONIDAZOLE 52390274059 No Longer Active Nilam Weber Active ZITHROMAX 250 MG TAB 2 po today, then 1 po q days 2-5 AZITHROMYCIN 15847426025 No Longer Active Arie Casper MD Acti ve VITAMINS 0.8 MG TABS take 1 tab po qday 08/08 [id number] 72875411367 No Longer Active Arie Casper MD Active IBUPROFEN 800 MG TABS take one po Q 8 hours IBU PROFEN 26248095262 No Longer Active Arie Casper MD Active [facility] TUSSIN COUGH/COLD CF 5-10-100 MG/5ML LIQD 2 teaspoons ev eliud 4 hours [id number] 71227833954 No Longer Active Blaine Casper MD Active COMTREX COLD/COUGH DAY/NITE MS 5-2-10-325 MG MISC 2 caps deja ry 4 hours [id number] 42018303023 No Longer Active Da aleksandra Casper MD Active CHLORASEPTIC MAX SORE THROAT 15-10 MG LOZG 1 every 2 hours prn 2 BENZOCAINE-MENTHOL 10538719150 No Longer Active Arie Marcelo Active PREDNISONE 20 MG TAB 2 tabs daily for 3 days, 1 t ab daily for 3 days, 1/2 tab daily for 2 days PREDNISONE 39838351646 No Longer Active Jose Zhong MD Active AZITHROMYCIN 250 MG TABS 2 po qd x 1 day, then 1 po qd x 4 days AZITHROMYCIN 27938078200 No Longer Active Jose Zhong MD Active ZOFRAN ODT 4 MG TBDP 1 po q6hr PRN Nausea ONDAN SETRON 78925668552 No Longer Active Rich Rosales MD Active ZOFRAN 4 MG TABS 1 tablet every 4 hours ONDANSE JERRELL HCL 81734773250 No Longer Active Rich Rosales MD Active MUCINEX 600 MG [id number] Take 1-2 tablets every 12 hours GUAIFENESIN 16997726254 No Longer Active Rich Rosales MD Activ e BACTRIM 400-80 MG TABS take one po BID SULFAMETHOXAZOLE-TRIMETHOPRIM 44644483324 No Longer Active Abelardo HERNANDEZ Active AZITHROMYCIN 500 MG TABS 1 PO q day x 6 days AZ ITHROMYCIN 04172509646 No Longer Active Tin HERNANDEZ Active ZITHROMAX 250 MG TAB 2 po today, then 1 po q days 2-5 AZITHROMYCIN 36907837082 No Longer Active Arie Casper MD Acti ve ZITHROMAX 250 MG TAB 2 po today, then 1 po q days 2-5 AZITHROMYCIN 09281290319 No Longer Active Arie Casper MD Acti ve AMOXICILLIN 500 MG CAP 1 tab by mouth 3 times daily 20 09/23/20 AMOXICILLIN 77049712309 No Longer Active Arie Casper MD Acti ve BACTRIM DS 800-160 MG TAB 1 tab by mouth twice daily 2 TRIMETHOPRIM-SULFAMETHOXAZOLE 51851609657 No Longer Active Arie Casper MD Active AMOXICILLIN 500 MG TABS take 1 tab po TID AMOXI CILLIN 34212400123 No Longer Active Arie Casper MD Active BACTRIM DS 800-160 MG TAB 1 tab by mouth twice daily 2 BACTRIM DS 800-160 MG TAB 283282 TRIMETHOPRIM-SULFAMETHOXAZOLE Inac tive MUCINEX 600 MG [id number] Take 1-2 tablets every 12 hours MUCINEX 600 MG [id number] GUAIFENESIN Inactive ZOFRAN 4 MG TABS 1 tablet every 4 hours ZOFRAN 4 MG TABS 070668 ONDANSETRON HCL Inactive ZOFRAN ODT 4 MG TBDP 1 po q6hr PRN Nausea ZOFRAN ODT 4 MG TBDP 363523 ONDANSETRON Inactive CHLORASEPTIC MAX SORE THROAT 15-10 MG LOZG 1 every 2 hours prn 2 CHLORASEPTIC MAX SORE THROAT 15-10 MG LOZG BENZO ARINA-MENTHOL Inactive COMTREX COLD/COUGH DAY/NITE MS 5-2-10-325 MG MISC 2 caps deja ry 4 hours COMTREX COLD/COUGH DAY/NITE MS 5-2-10-325 MG MIS C RAVEIBWIO-DCU-TY-APAP Inactive [facility] TUSSIN COUGH/COLD CF 5-10-100 MG/5ML LIQD 2 teaspoons ev eliud 4 hours [facility] TUSSIN COUGH/COLD CF 5-10-100 MG/5ML LIQD [id number] Inactive IBUPROFEN 800 MG TABS take one po Q 8 hours IBUPROFEN 800 MG TABS IBUPROFEN Inactive VITAMINS 0.8 MG TABS take 1 tab po qday 08/08 VITAMINS 0.8 MG TABS DRUURIFI-EOR-YL-FA Inactive TESSALON PERLES 100 MG CAP 1 tablet by mouth 3 times daily 11/01 TESSALON PERLES 100 MG CAP 626549 BENZONATATE Inact zaid AMOXICILLIN 500 MG CAP 1 tab by mouth 3 times daily 08/12/16 AMOXICILLIN 500 MG CAP 881277 AMOXICILLIN Inactive GUAIFENESIN-CODEINE 100-10 MG/5ML ORAL SYRP 2 tsp every 6 hours prn GUAIFENESIN-CODEINE 100-10 MG/5ML ORAL SYRP 658498 GUAIFENESIN-CODEINE Inactive VICKS DAYQUIL SEVERE COLD/FLU TABS 1 tab every 6 hours prn 12/10 VICKS DAYQUIL SEVERE COLD/FLU TABS PHENYLEPHRINE -DM-GG-APAP TABS Inactive BACTRIM DS 800-160 MG TABS 1 twice a day BACTRIM DS 800- 160 MG TABS 661646 SULFAMETHOXAZOLE-TRIMETHOPRIM Inactive PROMETHAZINE HCL 25 MG TABS 1 four times a day as needed for vomiting PROMETHAZINE HCL 25 MG TABS 097993 PROMETHAZINE HCL Inactive ZYRTEC ALLERGY 10 MG CAPS 1 po qd ZY RTEC ALLERGY 10 MG CAPS CETIRIZINE HCL Inactive MACROBID 100 MG CAP 1 cap by mouth twice daily MACROBID 100 MG CAP 6614527 NITROFURANTOIN MONOHYD MACRO Inactive LOMOTIL 2.5-0.025 MG TABS 1 to 2 four times a day as needed for diarrhea LOMOTIL 2.5-0.025 MG TABS 9050504 DIPHENOXYLATE-A TROPINE Inactive CYCLOBENZAPRINE HCL 10 MG TABS 1/2 - 1 tablet by mouth three times daily as needed for muscle spasm/pain CYCLOBENZAP RINE HCL 10 MG TABS 376064 CYCLOBENZAPRINE HCL Inactive AMOXICILLIN 500 MG TABS 2 tabs twice a day for 10 days AMOXICILLIN 500 MG TABS 558251 AMOXICILLIN Inactive LOMOTIL 2.5-0.025 MG TAB 1 to 2 four times a day as needed f or diarrhea LOMOTIL 2.5-0.025 MG TAB 6023025 DIPHENOXYLATE-AT ROPINE Inactive ZOFRAN 4 MG ORAL TABS 1 TAB PO Q 6 HRS PRN NAUSEA 2014 ZOFRAN 4 MG ORAL TABS 406131 ONDANSETRON HCL Inactive CITRATE OF MAGNESIA ORAL SOLN 1 bottle today for constipation 20 07/10/15 CITRATE OF MAGNESIA ORAL SOLN 8256849 MAGNESIUM CITRATE Inactive PROMETHAZINE HCL 12.5 MG TABS 1 tablet by mouth every 6 hours as needed for nausea/vomiting PROMETHAZINE HCL 12.5 MG TABS 017984 PROMETHAZINE HCL Inactive PREDNISONE 20 MG TAB 1 tablet twice daily for 2 d ays, then 1 tablet once daily for 2 days PREDNISONE 20 MG TAB 489820 PREDNISONE Inac tive ALPRAZOLAM 0.25 MG TAB 1 tablet by mouth every 8 hours as ne eded for stress ALPRAZOLAM 0.25 MG TAB 274021 ALPRAZOLAM Inact zaid FLONASE 50 MCG/ACT SUSP 1 spray each nostril twice d aily for allergies and runny nose until gone FLONASE 50 MCG/ACT SUSP F LUTICASONE PROPIONATE Inactive PREDNISONE 20 MG TAB 1 tablet daily for airway inflammation 2015 PREDNISONE 20 MG TAB 797119 PREDNISONE Inactive AMOXICILLIN 500 MG TABS take 1 tab po TID AMOXICILLIN 500 MG TABS 818985 AMOXICILLIN Inactive AMOXICILLIN 500 MG CAP 1 tab by mouth 3 times daily 09/23/20 AMOXICILLIN 500 MG CAP 696306 AMOXICILLIN Inactive ZITHROMAX 250 MG TAB 2 po today, then 1 po q days 2-5 ZITHROMAX 250 MG TAB 9279433 AZITHROMYCIN Inactive ZITHROMAX 250 MG TAB 2 po today, then 1 po q days 2-5 ZITHROMAX 250 MG TAB 4891898 AZITHROMYCIN Inactive AZITHROMYCIN 500 MG TABS 1 PO q day x 6 days 3 AZITHROMYCIN 500 MG TABS 6006887 AZITHROMYCIN Inactive BACTRIM 400-80 MG TABS take one po BID BA CTRIM 400-80 MG TABS 455483 SULFAMETHOXAZOLE-TRIMETHOPRIM Inactive AZITHROMYCIN 250 MG TABS 2 po qd x 1 day, then 1 po qd x 4 days AZITHROMYCIN 250 MG TABS 1305696 AZITHROMYCIN Inactiv e PREDNISONE 20 MG TAB 2 tabs daily for 3 days, 1 t ab daily for 3 days, 1/2 tab daily for 2 days PREDNISONE 20 MG TAB 826018 PREDNISON E Inactive ZITHROMAX 250 MG TAB 2 po today, then 1 po q days 2-5 ZITHROMAX 250 MG TAB 2683579 AZITHROMYCIN Inactive FLAGYL 500 MG TAB 1 tablet by mouth two times daily 07/11/29 FLAGYL 500 MG TAB 632617 METRONIDAZOLE Inactive AUGMENTIN 875-125 MG TAB 1 tab by mouth twice daily with food 20 08/12/16 AUGMENTIN 875-125 MG TAB 071296 AMOXICILLIN-POT CLAVULA ANGELO Inactive NAPROXEN 500 MG TAB one tab PO BID NAPROXEN 500 MG TAB 197970 NAPROXEN Inactive PREDNISONE 20 MG TAB 2 tabs daily for 3 days, 1 t ab daily for 3 days, 1/2 tab daily for 2 days PREDNISONE 20 MG TAB 562759 PREDNISON E Inactive AZITHROMYCIN 250 MG TABS 2 po qd x 1 day, then 1 po qd x 4 days AZITHROMYCIN 250 MG TABS 1941732 AZITHROMYCIN Inactiv e PREDNISONE 20 MG TAB 2 tabs daily for 3 days, 1 t ab daily for 3 days, 1/2 tab daily for 2 days PREDNISONE 20 MG TAB 085384 PREDNISON E Inactive ZITHROMAX Z-EMIL 250 MG TABS 2 today, then 1 daily for 4 days 201 03/31/18 ZITHROMAX Z-EMIL 250 MG TABS 0814643 AZITHROMYCIN Inac tive CEFDINIR 300 MG CAPS [...] Panel - Chemistry sodium, serum 136 mmol/L 317-812 8890/04/26 carbon dioxide, venous blood 29.9 mmol/L 21.0-32 [...] CBC W/DIFF, Comp. Metabolic Panel - Hematology erythrocyte (RBC) count 4.76 10^6/MM^3 10*6/mm3 4.04-5.4 8 lymphocytes as percent of blood leukocytes 20.6 % 20.5-51.1 monocytes as percent of blood leukocytes 7.1 % 1.7-9.3 neutrophils as percent of blood leukocytes 67.2 % 42.2-75.2 leukocyte count, blood 15.9 10^3/MM^3 10*3/mm3 4.6-10.2 hemoglobin, blood 12.8 g/dL 12.0-16.0 hematocrit, blood [...] ysis glucose, urine, semiquantitative Negative Neg ative urobilinogen, urine, semiquantitative (dipstick) 0.2 Normal leukocyte esterase, urine, by dipstick Negative Negative nitrite, urine, semiquantitative Negative Neg ative appearance, urine Clear Clear specific gravity, urine 1.025 1.000-1.030 pH, urine, semiquantitative 7.0 5.0-8.5 urine color Yellow Colorless;Lightyellow;St raw;Yellow ketones, urine, by test strip Negative Negati ve bilirubin, urine Negative Negative Lab Report: UHCG, UADIP W/MICRO, AUTO - Chemistry protein, total urine random Negative mg/dL Negative human chorionic gonadotropin , urine, qualitative (urine test) Negative Negative RBC, urine, dipstick Trace Negative Lab [...] Negative Encounters Code Encounter Date Provider Facility CPT-21229 Level 3 Est. Patient 15:18:16 [employer] SWITCHBOARD OPERATOR Jono black [facility] CPT-34437 Level 4 Est. Patient 12:08:40 [employer] SWITCHBOARD OPERATOR Steve [facility] CPT-94263 Level 3 Est. Patient 09:24:42 CDT Steve [facility] CPT-34976 Level 3 Est. Patient 09:12:56 CDT Arie mcqueen MD [facility] CPT-15769 Level 3 Est. Patient 16:40:54 CDT Jose Zhong MD [facility] CPT-55889 Level 2 Est. Patient 13:01:13 CDT Steve [facility] CPT-84011 Level 3 Est. Patient 11:55:30 [employer] SWITCHBOARD OPERATOR Jono black [facility] CPT-25651 Level 3 Est. Patient 09:52:36 [employer]ICE [employer] SWITCHBOARD OPERATOR Steve PAREKHN [facility] CPT-79689 Level 3 Est. Patient 16:25:33 [employer]ICE [employer] SWITCHBOARD OPERATOR Rich Rosales MD [facility]-15324 Level 3 Est. Patient 20:33:55 CDT Arie mqcueen MD [facility]-67257 Level 3 Est. Patient 14:18:20 CDT Rich Rosales MD [facility]-42873 Level 4 Est. Patient 09:34:31 CDT Arie mcqueen MD [facility]-16269 Level 3 Est. Patient 09:08:55 [employer]ICE [employer] SWITCHBOARD OPERATOR Liliana vincent MD [facility]-52314 Level 3 Est. Patient 16:44:07 POLICE [employer] SWITCHBOARD OPERATOR rAie mcqueen MD [facility]-60277 Level 3 Est. Patient 10:44:27 CDT Arie mcqueen MD [facility]-66822 Level 3 Est. Patient 08:55:41 CDT Jose Zhong MD [facility]-82004 Level 3 Est. Patient 18:37:31 CDT Liliana vincent MD [facility] [place][note 2]-99462 Level 3 Est. Patient 14:28:23 CDT Abelardo HERNANDEZ [facility]-24759 Level 3 Est. Patient 15:18:13 [employer] SWITCHBOARD OPERATOR Arie mcqueen MD [facility]-45531 Level 3 Est. Patient 10:11:29 [employer]ICE [employer] SWITCHBOARD OPERATOR Arie mcqueen MD [facility]-13856 Level 3 Est. Patient 10:55:57 [employer] SWITCHBOARD OPERATOR Jono black DO [facility]-72580 Level 3 Est. Patient 17:29:05 CDT Arie mcqueen MD [facility] Procedures Code Procedure Name Date Entry Date Standard Desc ription CPT-75827 Sono transvag pelvis non OB uterus ovari es cervix - XRAY USE ONLY 08:58:14 [employer] OPERATOR CPT-50098 UA w micro - LAB USE ONLY 16:04:56 [employer] SWITCHBOARD OPERATOR 2015 CPT-78634 Wet Prep/GEN - LAB USE ONLY 16:04:56 [employer] SWITCHBOARD OPERATOR 20 08/10/29 CPT-81908 First Vx - Ix admin via ID I M or jet injects without counseling by physician 16:57:10 CDT CPT-48764 Fluzone Preservative Free Intramuscular Suspension 16:57:10 CDT CPT-J0696 Rocephin 1000 mg (Ceftriaxone) 11:49:23 CDT CPT-J1040 Depo Medrol 80 mg (Methyl Prednisolone A cetate) 11:49:23 CDT CPT-J1100 Decadron 8mg (Dexamethasone) 11:49:23 CDT 2 CPT-13926 Abx/Therapy Injection 11:49:23 CDT CPT-18717 Abx/Therapy Injection 11:49:23 CDT CPT-09156 Abd compl w upright 09:07:26 [employer] SWITCHBOARD OPERATOR CPT-17604 Ear Wash 16:12:47 [employer] SWITCHBOARD OPERATOR CPT-OV Office Visit 11:12:01 CDT CPT-OV Office Visit 15:30:23 CDT CPT-81379 Sono pelvis non OB uterus ovaries cervix 15:50:44 CDT CPT-09293 Hand comp min 3V 16:42:32 CDT CPT-25510 Abd compl w upright 12:17:01 CDT CPT-59919 Nexplanon Placement 15:07:39 [employer] SWITCHBOARD OPERATOR CPT-55512 Removal of IUD 15:07:39 [employer] SWITCHBOARD OPERATOR CPT-80577 TB Tubersol 12:09:32 CDT CPT-34160 TB Tubersol 13:55:43 CDT
--- OUTSIDE RECORDS SUMMARY | 2020-03-03 07:48 | XMS REPORT | Clinical Summary ---
Author Author Admin, Diamante Marcelo Organization [address] Address Unknown Phone Unavailable Allergies, Adverse Reactions, [...] of gastrointestinal tract FH DIABETES V18.0 Resolved oJse Zhong MD Family history of diabetes mellitus [...] respiratory manifestations Sinusitis 473.9 Active Jessica Heaton REHABILITATION NURSE Unspecified sinusitis (chronic) Other mixed anxiety 300.00 [...] Cerumen impaction, bilateral 380.4 Active Brii Russ REHABILITATION NURSE Impacted cerumen Tonsillar enlargement 474.11 Active rBii Russ APRN Hypertrophy of tonsils alone Influenza Vaccination for Prophylaxis V04.81 Inactive Brii Russ REHABILITATION NURSE Need for prophylactic vaccin ation and inoculation against influenza Submandibular lymph node 785.6 Active Brii Are ll REHABILITATION NURSE Enlargement of lymph nodes Influenza Vaccination for [...] MG ORAL CAPSULE 1 po tid CEPHALEXIN 153663 69206 Active Brii Russ APRN Active PROTONIX 40 MG ORAL TABLET DELAYED RELEASE 1 pill by m outh daily, for acid reflux PANTOPRAZOLE SODIUM 03626123062 Active Roseann Crawford Active AMOXICILLIN 875 MG ORAL TABLET 1 tab by mouth twice daily 1 AMOXICILLIN 26995557838 No Longer Active Brii Russ APRN Active ALPRAZOLAM 0.25 MG ORAL TABLET 1 tablet by mouth twice a day as needed for stress/anxiety ALPRAZOLAM 64313138793 Active KELLIE Escobar Active ESCITALOPRAM OXALATE 10 MG ORAL TABLET take 1 tab po qhs for mod 20 10/04/18 ESCITALOPRAM OXALATE 46383428406 Active Arie Casper MD Active TUSSIONEX PENNKINETIC ER 10-8 MG/5ML ORAL SUSPENSION E XTENDED RELEASE 5ml po q12hr PRN Cough HYDROCOD POLST-CHLORPHEN POLST 5 9623014225 No Longer Active Myrna Roberto MD Active ZITHROMAX Z-EMIL 250 MG TABS Take two tablets today and then 1 tablet daily for 4 days AZITHROMYCIN 78950176275 No Longer Active Flaco Rosales MD Active GUAIFENESIN DM 400-20 MG ORAL TABLET 1 pill by mouth t wice daily, if needed for cough DEXTROMETHORPHAN-GUAIFENESIN 57962181276 No Longer Active Rich Rosales MD Active CEFDINIR 300 MG ORAL CAPSULE 1 po BID x 10 days CEFDINIR 55338876939 No Longer Active Jessica Heaton APRN Active CHERATUSSIN AC 100-10 MG/5ML ORAL SYRUP 1 tsp by mouth every 4 hours as needed for cough GUAIFENESIN-CODEINE 11307076005 No Longe r Active Jessica Heaton APRN Active TAMIFLU 75 MG ORAL CAPSULE 1 po BID x 5 days 0 OSELTAMIVIR PHOSPHATE 34291945081 No Longer Active Jose Zhong MD Activ e ZITHROMAX Z-EMIL 250 MG ORAL TABLET 2 today, then 1 daily for 4 d ays AZITHROMYCIN 15894932491 No Longer Active Arie Casper MD Active PROTONIX 40 MG ORAL TABLET DELAYED RELEASE 1 po q a.m. PANTOPRAZOLE SODIUM 16392817847 No Longer Active Arie Casper MD Active BACTRIM DS 800-160 MG ORAL TABLET 1 tab by mouth twice daily 201 05/02/30 TRIMETHOPRIM-SULFAMETHOXAZOLE 16659928998 No Longer Active R maalberto Crawford Active NEXPLANON IMPLANT right arm subcutaneously ETONOGESTREL IMPL 30498318671 No Longer Active Brii Areboris REHABILITATION NURSE Active TUSSIONEX PENNKINETIC ER 10-8 MG/5ML ORAL SUSPENSION E XTENDED RELEASE 5ml po q12hr PRN Cough HYDROCOD POLST-CHLORPHEN POLST 5 4465744717 No Longer Active Brii Arell REHABILITATION NURSE Active CETIRIZINE HCL 10 MG ORAL TABLET 1 po qd PRN Allergies CETIRIZINE HCL 71982469748 No Longer Active Brii Arell REHABILITATION NURSE Activ e PREDNISONE 20 MG ORAL TABLET 2 tabs daily for 3 days, 1 tab daily for 3 days, 1/2 tab daily for 2 days PREDNISONE 03150389449 No Longer Active Arie Casper MD Active LOMOTIL 2.5-0.025 MG ORAL TABLET 1 tab po four times a day as needed for diarrhea DIPHENOXYLATE-ATROPINE 73978752039 No Lo nger Active Arie Casper MD Active ZOLOFT 50 MG ORAL TABLET 1 tablet by mouth daily 12/08 SERTRALINE HCL 51481546958 No Longer Active Arie Casper MD Ac tive NAPROXEN 500 MG ORAL TABLET Take 1 tab BID NAPR OXEN 76682489977 No Longer Active Arie Casper MD Active CEFDINIR 300 MG ORAL CAPSULE 1 po BID x 10 days CEFDINIR 82765138317 No Longer Active Brii Russ APRN Active PREDNISONE 20 MG ORAL TABLET 1 tablet daily for airway inflammat ion PREDNISONE 76554176604 No Longer Active Brii Russ APRN A ctive CEFDINIR 300 MG ORAL CAPSULE 1 po BID x 10 days CEFDINIR 28815399853 No Longer Active Jono Gagnon DO Active FLONASE 50 MCG/ACT NASAL SUSPENSION 1 spray each nostr il twice daily for allergies and runny nose until gone FLUT ICASONE PROPIONATE 76634999923 No Longer Active Jono Gagnon DO Active ALPRAZOLAM 0.25 MG ORAL TABLET 1 tablet by mouth every 8 hours as needed for stress ALPRAZOLAM 89070862175 No Longer Active Jono Gagnon DO Active ZITHROMAX Z-EMIL 250 MG ORAL TABLET 2 today, then 1 daily for 4 d ays AZITHROMYCIN 40231853994 No Longer Active Arie Casper MD Active PREDNISONE 20 MG ORAL TABLET 2 tabs daily for 3 days, 1 tab daily for 3 days, 1/2 tab daily for 2 days PREDNISONE 38700589179 No Longer Active Brii Russ APRN Active PREDNISONE 20 MG ORAL TABLET 1 tablet twice daily for 2 days, then 1 tablet once daily for 2 days PREDNISONE 26064887246 No Longer Active Brii Russ APRN Active PROMETHAZINE HCL 12.5 MG ORAL TABLET 1 tablet by mouth every 6 hours as needed for nausea/vomiting PROMETHAZINE HCL 41851806375 No L onger Active Jono Gagnon DO Active CITRATE OF MAGNESIA ORAL SOLUTION 1 bottle today for constipatio n MAGNESIUM CITRATE 33402669442 No Longer Active Jono Gagnon DO Active ZOFRAN 4 MG ORAL TABLET 1 TAB PO Q 6 HRS PRN NAUSEA 07/10/15 ONDANSETRON HCL 38710637259 No Longer Active Brii Russ APRN Acti ve LOMOTIL 2.5-0.025 MG ORAL TABLET 1 to 2 four times a day as needed for diarrhea DIPHENOXYLATE-ATROPINE 50259003374 No Longer Active January Russ APRN Active AMOXICILLIN 500 MG ORAL TABLET 2 tabs twice a day for 10 days 07/09/11 AMOXICILLIN 11544752721 No Longer Active Brii Russ APRN Active CYCLOBENZAPRINE HCL 10 MG ORAL TABLET 1/2 - 1 tablet b y mouth three times daily as needed for muscle spasm/pain CYCLOBENZAPRINE HCL 93677018485 No Longer Active Arie Casper MD Active LOMOTIL 2.5-0.025 MG ORAL TABLET 1 to 2 four times a day as needed for diarrhea DIPHENOXYLATE-ATROPINE 62199792273 No Longer Active Fozia Casper MD Active MACROBID 100 MG ORAL CAPSULE 1 cap by mouth twice daily NITROFURANTOIN MONOHYD MACRO 52505338251 No Longer Active Arie Casper MD Active ZYRTEC ALLERGY 10 MG ORAL CAPSULE 1 po qd CE TIRIZINE HCL 46109818251 No Longer Active Arie Casper MD Active AZITHROMYCIN 250 MG ORAL TABLET 2 po qd x 1 day, then 1 po q d x 4 days AZITHROMYCIN 71547411243 No Longer Active Jessica salgado APRN Active PREDNISONE 20 MG ORAL TABLET 2 tabs daily for 3 days, 1 tab daily for 3 days, 1/2 tab daily for 2 days PREDNISONE 05516925373 No Longer Active Jessica Heaton APRN Active PROMETHAZINE HCL 25 MG ORAL TABLET 1 four times a day as nee ded for vomiting PROMETHAZINE HCL 46704302501 No Longer Active Myrna Roberto MD Active BACTRIM DS 800-160 MG ORAL TABLET 1 twice a day 05/30 SULFAMETHOXAZOLE-TRIMETHOPRIM 13661703890 No Longer Active Myrna Roberto MD Active VICKS DAYQUIL SEVERE COLD/FLU TABLET 1 tab every 6 hours prn 201 02/22/17 [id number] TABS 21734757812 No Longer Active K fany Roberto MD Active GUAIFENESIN-CODEINE 100-10 MG/5ML ORAL SYRUP 2 tsp every 6 hours prn GUAIFENESIN-CODEINE 28358511544 No Longer Active Myrna Roberto MD Active NAPROXEN 500 MG ORAL TABLET one tab PO BID NAPR OXEN 75099355309 No Longer Active Myrna Roberto MD Active AUGMENTIN 875-125 MG ORAL TABLET 1 tab by mouth twice daily with food AMOXICILLIN-POT CLAVULANATE 24275424317 No Longer Act zaid Liliana Estrada MD PhD Active AMOXICILLIN 500 MG ORAL CAPSULE 1 tab by mouth 3 times daily 201 02/21/05 AMOXICILLIN 24741607889 No Longer Active Liliana Estrada MD PhD Active TESSALON PERLES 100 MG ORAL CAPSULE 1 tablet by mouth 3 times da cory BENZONATATE 78801435365 No Longer Active Liliana Estrada MD PhD Active FLAGYL 500 MG ORAL TABLET 1 tablet by mouth two times daily 2014 METRONIDAZOLE 97363977017 No Longer Active Nilam Raida Ac tive ZITHROMAX 250 MG ORAL TABLET 2 po today, then 1 po q days 2-5 20 06/08/16 AZITHROMYCIN 73241801358 No Longer Active Arie Casper MD Active VITAMINS 0.8 MG ORAL TABLET take 1 tab po qday [id number] 32487979158 No Longer Active Arie Casper MD Active IBUPROFEN 800 MG ORAL TABLET take one po Q 8 hours 201 02/01/16 IBUPROFEN 88760903967 No Longer Active Arie Casper MD Acti ve [facility] TUSSIN COUGH/COLD CF 5-10-100 MG/5ML ORAL LIQUID 2 teasp oons every 4 hours [id number] 60775816468 No Longer Active Blaine Casper MD Active COMTREX COLD/COUGH DAY/NITE MS 5-2-10-325 MG ORAL 2 caps deja ry 4 hours [id number] 04949654899 No Longer Active Landon Casper MD Active CHLORASEPTIC MAX SORE THROAT 15-10 MG MOUTH/THROAT LOZENGE 1 every 2 hours prn BENZOCAINE-MENTHOL 29783714153 No Longer Active Arie Casper MD Active PREDNISONE 20 MG ORAL TABLET 2 tabs daily for 3 days, 1 tab daily for 3 days, 1/2 tab daily for 2 days PREDNISONE 82376780898 No Longer Active Jose Zhong MD Active AZITHROMYCIN 250 MG ORAL TABLET 2 po qd x 1 day, then 1 po q d x 4 days AZITHROMYCIN 71914140584 No Longer Active Jose Mcwilliams MD Active ZOFRAN ODT 4 MG ORAL TABLET DISINTEGRATING 1 po q6hr PRN Nausea ONDANSETRON 18526840708 No Longer Active Rich Rosales MD Active ZOFRAN 4 MG ORAL TABLET 1 tablet every 4 hours ONDANSETRON HCL 74280080935 No Longer Active Rich Rosales MD Activ e MUCINEX 600 MG ORAL TABLET EXTENDED RELEASE 12 HOUR Ta ke 1-2 tablets every 12 hours GUAIFENESIN 53957161841 No Longer Active Rich Rosales MD Active BACTRIM 400-80 MG ORAL TABLET take one po BID SULFAMETHOXAZOLE-TRIMETHOPRIM 62123859498 No Longer Active Abelardo HERNANDEZ Active AZITHROMYCIN 500 MG ORAL TABLET 1 PO q day x 6 days 03/02/23 AZITHROMYCIN 59096581431 No Longer Active Tin HERNANDEZ Activ e ZITHROMAX 250 MG ORAL TABLET 2 po today, then 1 po q days 2-5 20 10/03/08 AZITHROMYCIN 72779606639 No Longer Active Arie Casper MD Active ZITHROMAX 250 MG ORAL TABLET 2 po today, then 1 po q days 2-5 20 09/23/25 AZITHROMYCIN 29141218983 No Longer Active Arie Casper MD Active AMOXICILLIN 500 MG ORAL CAPSULE 1 tab by mouth 3 times daily 201 11/24/09 AMOXICILLIN 97424738221 No Longer Active Arie Casper MD Active BACTRIM DS 800-160 MG ORAL TABLET 1 tab by mouth twice daily 201 11/03/14 TRIMETHOPRIM-SULFAMETHOXAZOLE 50561414407 No Longer Active Fozia Casper MD Active AMOXICILLIN 500 MG ORAL TABLET take 1 tab po TID 08/05 AMOXICILLIN 08854481719 No Longer Active Arie Casper MD Acti ve BACTRIM DS 800-160 MG ORAL TABLET 1 tab by mouth twice daily 201 11/03/14 BACTRIM DS 800-160 MG ORAL TABLET 028295 TRIMETHOPRIM-SULFAMETHOXAZOLE Inactive MUCINEX 600 MG ORAL TABLET EXTENDED RELEASE 12 HOUR Ta ke 1-2 tablets every 12 hours MUCINEX 600 MG ORAL TABLET EXTENDED RELEA SE 12 HOUR GUAIFENESIN Inactive ZOFRAN 4 MG ORAL TABLET 1 tablet every 4 hours ZOFRAN 4 MG ORAL TABLET 770199 ONDANSETRON HCL Inactive ZOFRAN ODT 4 MG ORAL TABLET DISINTEGRATING 1 po q6hr PRN Nausea ZOFRAN ODT 4 MG ORAL TABLET DISINTEGRATING 577059 ONDAN SETRON Inactive CHLORASEPTIC MAX SORE THROAT 15-10 MG MOUTH/THROAT LOZENGE 1 every 2 hours prn CHLORASEPTIC MAX SORE THROAT 15-10 MG MOUTH/THROAT LOZENGE BENZOCAINE-MENTHOL Inactive COMTREX COLD/COUGH DAY/NITE MS 5-2-10-325 MG ORAL 2 caps deja ry 4 hours COMTREX COLD/COUGH DAY/NITE MS 5-2-10-325 MG ORA L [id number] Inactive [facility] TUSSIN COUGH/COLD CF 5-10-100 MG/5ML ORAL LIQUID 2 teasp oons every 4 hours [facility] TUSSIN COUGH/COLD CF 5-10-100 MG/5ML ORAL LI QUID [id number] Inactive IBUPROFEN 800 MG ORAL TABLET take one po Q 8 hours 201 02/01/16 IBUPROFEN 800 MG ORAL TABLET 078006 IBUPROFEN Inactive VITAMINS 0.8 MG ORAL TABLET take 1 tab po qday VITAMINS 0.8 MG ORAL TABLET [id number] E-FA Inactive TESSALON PERLES 100 MG ORAL CAPSULE 1 tablet by mouth 3 times da cory TESSALON PERLES 100 MG ORAL CAPSULE 264515 BENZONATATE Inactive AMOXICILLIN 500 MG ORAL CAPSULE 1 tab by mouth 3 times daily 201 02/21/05 AMOXICILLIN 500 MG ORAL CAPSULE 761803 AMOXICILLIN Inactive GUAIFENESIN-CODEINE 100-10 MG/5ML ORAL SYRUP 2 tsp every 6 hours prn GUAIFENESIN-CODEINE 100-10 MG/5ML ORAL SYRUP 268488 GUAIFENESIN-CODEINE Inactive VICKS DAYQUIL SEVERE COLD/FLU TABLET 1 tab every 6 hours prn 201 02/22/17 VICKS DAYQUIL SEVERE COLD/FLU TABLET PHENYLEPHRI NP-NA-TV-APAP TABS Inactive BACTRIM DS 800-160 MG ORAL TABLET 1 twice a day 05/30 BACTRIM DS 800-160 MG ORAL TABLET 487478 SULFAMETHOXAZOLE-TRIMETHOPRIM Inactiv e PROMETHAZINE HCL 25 MG ORAL TABLET 1 four times a day as nee ded for vomiting PROMETHAZINE HCL 25 MG ORAL TABLET 254641 PROMETHAZINE HCL Inactive ZYRTEC ALLERGY 10 MG ORAL CAPSULE 1 po qd ZYRTEC ALLERGY 10 MG ORAL CAPSULE CETIRIZINE HCL Inactive MACROBID 100 MG ORAL CAPSULE 1 cap by mouth twice daily MACROBID 100 MG ORAL CAPSULE 6649541 NITROFURANTOIN MONOHYD MACRO In active LOMOTIL 2.5-0.025 MG ORAL TABLET 1 to 2 four times a day as needed for diarrhea LOMOTIL 2.5-0.025 MG ORAL TABLET 9880018 DIPHENOXYLATE-ATROPINE Inactive CYCLOBENZAPRINE HCL 10 MG ORAL TABLET 1/2 - 1 tablet b y mouth three times daily as needed for muscle spasm/pain CYCLOBEN ZAPRINE HCL 10 MG ORAL TABLET 463661 CYCLOBENZAPRINE HCL Inactive AMOXICILLIN 500 MG ORAL TABLET 2 tabs twice a day for 10 days 07/09/11 AMOXICILLIN 500 MG ORAL TABLET 289915 AMOXICILLIN I nactive LOMOTIL 2.5-0.025 MG ORAL TABLET 1 to 2 four times a day as needed for diarrhea LOMOTIL 2.5-0.025 MG ORAL TABLET 1182224 DIPHENOXYLATE-ATROPINE Inactive ZOFRAN 4 MG ORAL TABLET 1 TAB PO Q 6 HRS PRN NAUSEA 07/10/15 ZOFRAN 4 MG ORAL TABLET 748136 ONDANSETRON HCL Inactive CITRATE OF MAGNESIA ORAL SOLUTION 1 bottle today for constipatio n CITRATE OF MAGNESIA ORAL SOLUTION 3439285 MAGNESIUM CITR ATE Inactive PROMETHAZINE HCL 12.5 MG ORAL TABLET 1 tablet by mouth every 6 hours as needed for nausea/vomiting PROMETHAZINE HCL 12.5 MG ORA L TABLET 210757 PROMETHAZINE HCL Inactive PREDNISONE 20 MG ORAL TABLET 1 tablet twice daily for 2 days, then 1 tablet once daily for 2 days PREDNISONE 20 MG ORAL TABLET 653421 PREDNISONE Inactive ALPRAZOLAM 0.25 MG ORAL TABLET 1 tablet by mouth every 8 hours as needed for stress ALPRAZOLAM 0.25 MG ORAL TABLET 112177 ALPRA ZOLAM Inactive FLONASE 50 MCG/ACT NASAL SUSPENSION 1 spray each nostr il twice daily for allergies and runny nose until gone FLON ASE 50 MCG/ACT NASAL SUSPENSION 0271736 FLUTICASONE PROPIONATE Inactive PREDNISONE 20 MG ORAL TABLET 1 tablet daily for airway inflammat ion PREDNISONE 20 MG ORAL TABLET 942126 PREDNISONE Arlen ctive NAPROXEN 500 MG ORAL TABLET Take 1 tab BID NAPROXEN 500 MG ORAL TABLET 586733 NAPROXEN Inactive ZOLOFT 50 MG ORAL TABLET 1 tablet by mouth daily 12/08 ZOLOFT 50 MG ORAL TABLET 160351 SERTRALINE HCL Inactive LOMOTIL 2.5-0.025 MG ORAL TABLET 1 tab po four times a day as needed for diarrhea LOMOTIL 2.5-0.025 MG ORAL TABLET 1786250 DIPHENOXYLATE-ATROPINE Inactive CETIRIZINE HCL 10 MG ORAL TABLET 1 po qd PRN Allergies CETIRIZINE HCL 10 MG ORAL TABLET 2041093 CETIRIZINE HCL Inactiv e TUSSIONEX PENNKINETIC ER 10-8 MG/5ML ORAL SUSPENSION E XTENDED RELEASE 5ml po q12hr PRN Cough TUSSIONEX PENNKINETI C ER 10-8 MG/5ML ORAL SUSPENSION EXTENDED RELEASE HYDROCOD POLST-CHLORPHEN POLST I nactive NEXPLANON IMPLANT right arm subcutaneously NEXPLANON IMPLANT ETONOGESTREL IMPL Inactive PROTONIX 40 MG ORAL TABLET DELAYED RELEASE 1 po q a.m. PROTONIX 40 MG ORAL TABLET DELAYED RELEASE 674023 PANTOPRAZOLE SODI UM Inactive CHERATUSSIN AC 100-10 MG/5ML ORAL SYRUP 1 tsp by mouth every 4 hours as needed for cough CHERATUSSIN AC 100-10 MG/5ML ORAL SYRUP 9 85651 GUAIFENESIN-CODEINE Inactive GUAIFENESIN DM 400-20 MG ORAL TABLET 1 pill by mouth t wice daily, if needed for cough GUAIFENESIN DM 400-20 MG ORAL TABLET 1141 214 DEXTROMETHORPHAN-GUAIFENESIN Inactive TUSSIONEX PENNKINETIC ER 10-8 MG/5ML ORAL SUSPENSION E XTENDED RELEASE 5ml po q12hr PRN Cough TUSSIONEX PENNKINETI C ER 10-8 MG/5ML ORAL SUSPENSION EXTENDED RELEASE HYDROCOD POLST-CHLORPHEN POLST I nactive AMOXICILLIN 500 MG ORAL TABLET take 1 tab po TID 08/05 AMOXICILLIN 500 MG ORAL TABLET 719895 AMOXICILLIN Inactive AMOXICILLIN 500 MG ORAL CAPSULE 1 tab by mouth 3 times daily 201 11/24/09 AMOXICILLIN 500 MG ORAL CAPSULE 296351 AMOXICILLIN Inactive ZITHROMAX 250 MG ORAL TABLET 2 po today, then 1 po q days 2-5 20 09/23/25 ZITHROMAX 250 MG ORAL TABLET 394077 AZITHROMYCIN Arlen ctive ZITHROMAX 250 MG ORAL TABLET 2 po today, then 1 po q days 2-5 20 10/03/08 ZITHROMAX 250 MG ORAL TABLET 208601 AZITHROMYCIN Jeanerette ctive AZITHROMYCIN 500 MG ORAL TABLET 1 PO q day x 6 days 20 03/02/23 AZITHROMYCIN 500 MG ORAL TABLET 7609680 AZITHROMYCIN Inactive BACTRIM 400-80 MG ORAL TABLET take one po BID BACTRIM 400- 80 MG ORAL TABLET 401842 SULFAMETHOXAZOLE-TRIMETHOPRIM Inactive AZITHROMYCIN 250 MG ORAL TABLET 2 po qd x 1 day, then 1 po q d x 4 days AZITHROMYCIN 250 MG ORAL TABLET 647362 AZITHROMY ALLISON Inactive PREDNISONE 20 MG ORAL TABLET 2 tabs daily for 3 days, 1 tab daily for 3 days, 1/2 tab daily for 2 days PREDNISONE 20 MG ORAL T ABLET 585552 PREDNISONE Inactive ZITHROMAX 250 MG ORAL TABLET 2 po today, then 1 po q days 2-5 20 06/08/16 ZITHROMAX 250 MG ORAL TABLET 622243 AZITHROMYCIN Jeanerette ctive FLAGYL 500 MG ORAL TABLET 1 tablet by mouth two times daily 2014 FLAGYL 500 MG ORAL TABLET 347509 METRONIDAZOLE Inacti ve AUGMENTIN 875-125 MG ORAL TABLET 1 tab by mouth twice daily with food AUGMENTIN 875-125 MG ORAL TABLET 165570 AMOXICIL ELSA-POT CLAVULANATE Inactive NAPROXEN 500 MG ORAL TABLET one tab PO BID NAPROXEN 500 MG ORAL TABLET 442662 NAPROXEN Inactive PREDNISONE 20 MG ORAL TABLET 2 tabs daily for 3 days, 1 tab daily for 3 days, 1/2 tab daily for 2 days PREDNISONE 20 MG ORAL T ABLET 372612 PREDNISONE Inactive AZITHROMYCIN 250 MG ORAL TABLET 2 po qd x 1 day, then 1 po q d x 4 days AZITHROMYCIN 250 MG ORAL TABLET 801325 AZITHROMY ALLISON Inactive PREDNISONE 20 MG ORAL TABLET 2 tabs daily for 3 days, 1 tab daily for 3 days, 1/2 tab daily for 2 days PREDNISONE 20 MG ORAL T ABLET 636971 PREDNISONE Inactive ZITHROMAX Z-EMIL 250 MG ORAL TABLET 2 today, then 1 daily for 4 d ays ZITHROMAX Z-EMIL 250 MG ORAL TABLET 622050 AZITHROMYCIN Inactive CEFDINIR 300 MG ORAL CAPSULE 1 po BID x 10 days 12/18 CEFDINIR 300 MG ORAL CAPSULE 190080 CEFDINIR Inactive CEFDINIR 300 MG ORAL CAPSULE 1 po BID x 10 days CEFDINIR 300 MG ORAL CAPSULE 757411 CEFDINIR Inactive PREDNISONE 20 MG ORAL TABLET 2 tabs daily for 3 days, 1 tab daily for 3 days, 1/2 tab daily for 2 days PREDNISONE 20 MG ORAL T ABLET 824235 PREDNISONE Inactive BACTRIM DS 800-160 MG ORAL TABLET 1 tab by mouth twice daily 201 05/02/30 BACTRIM DS 800-160 MG ORAL TABLET 544252 TRIMETHOPRIM-SULFAMETHOXAZOLE Inactive ZITHROMAX Z-EMIL 250 MG ORAL TABLET 2 today, then 1 daily for 4 d ays ZITHROMAX Z-EMIL 250 MG ORAL TABLET 419191 AZITHROMYCIN Inactive TAMIFLU 75 MG ORAL CAPSULE 1 po BID x 5 days 0 TAMIFLU 75 MG ORAL CAPSULE 106041 OSELTAMIVIR PHOSPHATE Inactive CEFDINIR 300 MG ORAL CAPSULE 1 po BID x 10 days 01/03 CEFDINIR 300 MG ORAL CAPSULE 510726 CEFDINIR Inactive ZITHROMAX Z-EMIL 250 MG TABS Take two tablets today and then 1 tablet daily for 4 days ZITHROMAX Z-EMIL 250 MG TABS 780562 AZITHROM YCIN Inactive AMOXICILLIN 875 MG ORAL TABLET 1 tab by mouth twice daily AMOXICILLIN 875 MG ORAL TABLET 657616 AMOXICILLIN Inactive Advance Directives Directive Description Start [...] Negative Encounters Code Encounter Date Provider Facility CPT-23394 [id number] Vst-Est Level III 09:41:31 CDT Arie Casper MD [facility] CPT-66816 [id number] Vst-Est Level III 18:20:11 CDT Me lobito Russ APRN [facility] CPT-83456 [id number] Vst-Est Level III 17:21:41 CDT Me lobito Russ [facility] CPT-93525 [id number] Vst-Est Level IV 13:30:22 C NIC Casper MD [facility] CPT-12482 Level 4 Est. Patient 13:05:26 CDT Myrna Real Bernabe maldonado MD [facility]-79124 [id number] Vst-Est Level IV 20:50:21 C DT Arie Casper MD [facility] CPT-40488 Level 3 Est. Patient 11:49:34 SYSTEMS PROTECTION TECHNICIAN Jessica boyd [facility]-23735 Level 3 Est. Patient 14:55:50 SYSTEMS PROTECTION TECHNICIAN Jose Zhong MD [facility] CPT-33600 Level 3 Est. Patient 10:21:41 SYSTEMS PROTECTION TECHNICIAN Arie mcqueen MD [facility] CPT-45002 Level 3 Est. Patient 11:35:15 SYSTEMS PROTECTION TECHNICIAN Arie mcqueen MD [facility] CPT-62052 Level 3 Est. Patient 15:40:28 CDT Brii Are [facility] CPT-64460 Level 3 Est. Patient 16:40:36 CDT Arie mcqueen MD [facility]-08773 Level 4 Est. Patient 15:29:22 SYSTEMS PROTECTION TECHNICIAN Arie mcqueen MD [facility] CPT-41676 Level 3 Est. Patient 15:18:16 SYSTEMS PROTECTION TECHNICIAN Jono black DO [facility] CPT-17502 Level 4 Est. Patient 12:08:40 SYSTEMS PROTECTION TECHNICIAN Brii Are [facility] CPT-84709 Level 3 Est. Patient 09:24:42 CDT Brii Are [facility] CPT-09601 Level 3 Est. Patient 09:12:56 CDT Arie mcqueen MD [facility] CPT-55752 Level 3 Est. Patient 16:40:54 CDT oJse Zhong MD [facility] CPT-16348 Level 2 Est. Patient 13:01:13 CDT Brii Yepez ll [facility] CPT-73499 Level 3 Est. Patient 11:55:30 SYSTEMS PROTECTION TECHNICIAN Jono black DO [facility] CPT-10204 Level 3 Est. Patient 09:52:36 SYSTEMS PROTECTION TECHNICIAN Brii Yepez ll [facility] CPT-59875 Level 3 Est. Patient 16:25:33 SYSTEMS PROTECTION TECHNICIAN Rich Rosales MD [facility] CPT-98730 Level 3 Est. Patient 20:33:55 CDT Arie mcqueen MD [facility] CPT-47478 Level 3 Est. Patient 14:18:20 CDT Rich Rosales MD [facility] CPT-74045 Level 4 Est. Patient 09:34:31 CDT Arie mcqueen MD [facility] CPT-43496 Level 3 Est. Patient 09:08:55 SYSTEMS PROTECTION TECHNICIAN Liliana vincent MD PhD [facility]-79581 Level 3 Est. Patient 16:44:07 SYSTEMS PROTECTION TECHNICIAN Arie mcqueen MD [facility] CPT-52469 Level 3 Est. Patient 10:44:27 CDT Arie mcqueen MD [facility] CPT-54186 Level 3 Est. Patient 08:55:41 CDT Jose Zhong MD [facility] CPT-36250 Level 3 Est. Patient 18:37:31 CDT Liliana vincent MD PhD [facility]-32957 Level 3 Est. Patient 14:28:23 CDT Abelardo HERNANDEZ [facility] CPT-43694 Level 3 Est. Patient 15:18:13 SYSTEMS PROTECTION TECHNICIAN Arie mcqueen MD [facility] CPT-92667 Level 3 Est. Patient 10:11:29 SYSTEMS PROTECTION TECHNICIAN Arie mcqueen MD [facility] CPT-79676 Level 3 Est. Patient 10:55:57 SYSTEMS PROTECTION TECHNICIAN Jono Cheema sofia DO [facility] CPT-47508 Level 3 Est. Patient 17:29:05 CDT Arie mcqueen MD [facility] Procedures Code Procedure Name Date Entry Date Standard Desc ription CPT-13863 Sono Soft Tissue Head and Neck - XRAY US E ONLY 17:10:14 CDT CPT-82361 Ear Wash with irrigation 17:21:41 CDT 07/04 CPT-70467 Nexplanon Removal 15:40:28 CDT CPT-92185 Sono transvag pelvis non OB uterus ovari es cervix - XRAY USE ONLY 08:58:14 SYSTEMS PROTECTION TECHNICIAN CPT-55474 UA w micro - LAB USE ONLY 16:04:56 SYSTEMS PROTECTION TECHNICIAN 2015 CPT-42102 Wet Prep/GEN - LAB USE ONLY 16:04:56 SYSTEMS PROTECTION TECHNICIAN 20 08/10/29 CPT-63432 First Vx - Ix admin via ID I M or jet injects without counseling by physician 16:57:10 CDT CPT-81354 Fluzone Preservative Free Intramuscular Suspension 16:57:10 CDT CPT-J0696 Rocephin 1000 mg (Ceftriaxone) 11:49:23 CDT CPT-J1040 Depo Medrol 80 mg (Methyl Prednisolone A cetate) 11:49:23 CDT CPT-J1100 Decadron 8mg (Dexamethasone) 11:49:23 CDT 2 CPT-72674 Abx/Therapy Injection 11:49:23 CDT CPT-54193 Abx/Therapy Injection 11:49:23 CDT CPT-14897 Abd compl w upright 09:07:26 SYSTEMS PROTECTION TECHNICIAN CPT-13204 Ear Wash 16:12:47 SYSTEMS PROTECTION TECHNICIAN CPT-OV Office Visit 11:12:01 CDT CPT-OV Office Visit 15:30:23 CDT CPT-45795 Sono pelvis non OB uterus ovaries cervix 15:50:44 CDT CPT-18110 Hand comp min 3V 16:42:32 CDT CPT-22330 Abd compl w upright 12:17:01 CDT CPT-71262 Nexplanon Placement 15:07:39 SYSTEMS PROTECTION TECHNICIAN CPT-08082 Removal of IUD 15:07:39 SYSTEMS PROTECTION TECHNICIAN CPT-33781 TB Tubersol 12:09:32 CDT CPT-32903 TB Tubersol 13:55:43 CDT
--- OUTSIDE RECORDS SUMMARY | 2020-03-03 07:48 | XMS REPORT | Clinical Summary ---
Author Author Admin, Diamante Marcelo Organization [employer] Address Unknown Phone Unavailable Allergies, Adverse Reactions, [...] respiratory manifestations Sinusitis 473.9 Active Jessica Heaton [employer] Unspecified sinusitis (chronic) Other mixed anxiety 300.00 [...] Cerumen impaction, bilateral 380.4 Active Brii Russ [employer] Impacted cerumen Tonsillar enlargement 474.11 Active Brii Russ APRN Hypertrophy of tonsils alone Influenza Vaccination for Prophylaxis V04.81 Inactive Brii Russ [employer] Need for prophylactic vaccin ation and inoculation against influenza Submandibular lymph node 785.6 Active Brii Are ll [employer] Enlargement of lymph nodes Influenza Vaccination for [...] for Prophylaxis ICD-V04.81 8 Inactive Nilam Weber Fever ICD-780.60 Inactive Liliana Estrada MD PhD 20 08/12/16 Medication List Medication Instructions Start Date Stop Date Generic Name NDC Status Provider Patient Instruction KEFLEX 500 MG ORAL CAPSULE 1 po tid CEPHALEXIN [id number] Active Brii Russ APRN Active PROTONIX 40 MG ORAL TABLET DELAYED RELEASE 1 pill by m outh daily, for acid reflux PANTOPRAZOLE SODIUM 47991156720 Active Roseann Ty Active AMOXICILLIN 875 MG ORAL TABLET 1 tab by mouth twice daily 1 AMOXICILLIN 34439699837 No Longer Active Brii Russ APRN Active ALPRAZOLAM 0.25 MG ORAL TABLET 1 tablet by mouth twice a day as needed for stress/anxiety ALPRAZOLAM 60525675605 Active KELLIE Escobar Active ESCITALOPRAM OXALATE 10 MG ORAL TABLET take 1 tab po qhs for mod 20 10/04/18 ESCITALOPRAM OXALATE 33035297544 Active Arie Casper MD Active TUSSIONEX PENNKINETIC ER 10-8 MG/5ML ORAL SUSPENSION E XTENDED RELEASE 5ml po q12hr PRN Cough HYDROCOD POLST-CHLORPHEN POLST 5 7530645504 No Longer Active Myrna Roberto MD Active ZITHROMAX Z-EMIL 250 MG TABS Take two tablets today and then 1 tablet daily for 4 days AZITHROMYCIN 35764707358 No Longer Active Flaco Rosales MD Active GUAIFENESIN DM 400-20 MG ORAL TABLET 1 pill by mouth t wice daily, if needed for cough DEXTROMETHORPHAN-GUAIFENESIN 85785962464 No Longer Active Rich Rosales MD Active CEFDINIR 300 MG ORAL CAPSULE 1 po BID x 10 days CEFDINIR 16341795844 No Longer Active Jessica Heaton APRN Active CHERATUSSIN AC 100-10 MG/5ML ORAL SYRUP 1 tsp by mouth every 4 hours as needed for cough GUAIFENESIN-CODEINE 43556518937 No Longe r Active Jessica Heaton APRN Active TAMIFLU 75 MG ORAL CAPSULE 1 po BID x 5 days 0 OSELTAMIVIR PHOSPHATE 30215068422 No Longer Active Jose Zhong MD Activ e ZITHROMAX Z-EMIL 250 MG ORAL TABLET 2 today, then 1 daily for 4 d ays AZITHROMYCIN 95362399628 No Longer Active Arie Casper MD Active PROTONIX 40 MG ORAL TABLET DELAYED RELEASE 1 po q a.m. PANTOPRAZOLE SODIUM 08145633186 No Longer Active Arie Casper MD Active BACTRIM DS 800-160 MG ORAL TABLET 1 tab by mouth twice daily 201 05/02/30 TRIMETHOPRIM-SULFAMETHOXAZOLE 76523050579 No Longer Active R wialberto Crawford Active NEXPLANON IMPLANT right arm subcutaneously ETONOGESTREL IMPL 68460902235 No Longer Active Brii Areboris [employer] Active TUSSIONEX PENNKINETIC ER 10-8 MG/5ML ORAL SUSPENSION E XTENDED RELEASE 5ml po q12hr PRN Cough HYDROCOD POLST-CHLORPHEN POLST 5 8656420558 No Longer Active Brii Arell [employer] Active CETIRIZINE HCL 10 MG ORAL TABLET 1 po qd PRN Allergies CETIRIZINE HCL 33909336037 No Longer Active Brii Arell [employer] Activ e PREDNISONE 20 MG ORAL TABLET 2 tabs daily for 3 days, 1 tab daily for 3 days, 1/2 tab daily for 2 days PREDNISONE 92425172646 No Longer Active Arie Casper MD Active LOMOTIL 2.5-0.025 MG ORAL TABLET 1 tab po four times a day as needed for diarrhea DIPHENOXYLATE-ATROPINE 35692772276 No Lo nger Active Arie Casper MD Active ZOLOFT 50 MG ORAL TABLET 1 tablet by mouth daily 12/08 SERTRALINE HCL 05033933271 No Longer Active Arie Casper MD Ac tive NAPROXEN 500 MG ORAL TABLET Take 1 tab BID NAPR OXEN 87647371560 No Longer Active Arie Casper MD Active CEFDINIR 300 MG ORAL CAPSULE 1 po BID x 10 days CEFDINIR 49460487859 No Longer Active Brii Russ APRN Active PREDNISONE 20 MG ORAL TABLET 1 tablet daily for airway inflammat ion PREDNISONE 49493242703 No Longer Active Brii Russ APRN A ctive CEFDINIR 300 MG ORAL CAPSULE 1 po BID x 10 days CEFDINIR 05454775544 No Longer Active Jono Gagnon DO Active FLONASE 50 MCG/ACT NASAL SUSPENSION 1 spray each nostr il twice daily for allergies and runny nose until gone FLUT ICASONE PROPIONATE 72823704367 No Longer Active Jono Gagnon DO Active ALPRAZOLAM 0.25 MG ORAL TABLET 1 tablet by mouth every 8 hours as needed for stress ALPRAZOLAM 09330708053 No Longer Active Jono Gagnon DO Active ZITHROMAX Z-EMIL 250 MG ORAL TABLET 2 today, then 1 daily for 4 d ays AZITHROMYCIN 24319936501 No Longer Active Arie Casper MD Active PREDNISONE 20 MG ORAL TABLET 2 tabs daily for 3 days, 1 tab daily for 3 days, 1/2 tab daily for 2 days PREDNISONE 95137329804 No Longer Active Brii Russ APRN Active PREDNISONE 20 MG ORAL TABLET 1 tablet twice daily for 2 days, then 1 tablet once daily for 2 days PREDNISONE 85818274338 No Longer Active Brii Russ APRN Active PROMETHAZINE HCL 12.5 MG ORAL TABLET 1 tablet by mouth every 6 hours as needed for nausea/vomiting PROMETHAZINE HCL 02215902929 No L onger Active Jono Gagnon DO Active CITRATE OF MAGNESIA ORAL SOLUTION 1 bottle today for constipatio n MAGNESIUM CITRATE 59600909886 No Longer Active Jono Gagnon DO Active ZOFRAN 4 MG ORAL TABLET 1 TAB PO Q 6 HRS PRN NAUSEA 07/10/15 ONDANSETRON HCL 94680939249 No Longer Active Brii Russ APRN Acti ve LOMOTIL 2.5-0.025 MG ORAL TABLET 1 to 2 four times a day as needed for diarrhea DIPHENOXYLATE-ATROPINE 98495372760 No Longer Active January Russ APRN Active AMOXICILLIN 500 MG ORAL TABLET 2 tabs twice a day for 10 days 07/09/11 AMOXICILLIN 97406938520 No Longer Active Brii Russ APRN Active CYCLOBENZAPRINE HCL 10 MG ORAL TABLET 1/2 - 1 tablet b y mouth three times daily as needed for muscle spasm/pain CYCLOBENZAPRINE HCL 61676114943 No Longer Active Arie Casper MD Active LOMOTIL 2.5-0.025 MG ORAL TABLET 1 to 2 four times a day as needed for diarrhea DIPHENOXYLATE-ATROPINE 31902162175 No Longer Active Fozia Casper MD Active MACROBID 100 MG ORAL CAPSULE 1 cap by mouth twice daily NITROFURANTOIN MONOHYD MACRO 17935444965 No Longer Active Arie Casper MD Active ZYRTEC ALLERGY 10 MG ORAL CAPSULE 1 po qd CE TIRIZINE HCL 03493000098 No Longer Active Arie Casper MD Active AZITHROMYCIN 250 MG ORAL TABLET 2 po qd x 1 day, then 1 po q d x 4 days AZITHROMYCIN 34245885109 No Longer Active Jessica salgado APRN Active PREDNISONE 20 MG ORAL TABLET 2 tabs daily for 3 days, 1 tab daily for 3 days, 1/2 tab daily for 2 days PREDNISONE 01769617874 No Longer Active Jessica Heaton APRN Active PROMETHAZINE HCL 25 MG ORAL TABLET 1 four times a day as nee ded for vomiting PROMETHAZINE HCL 22531855218 No Longer Active Myrna Roberto MD Active BACTRIM DS 800-160 MG ORAL TABLET 1 twice a day 05/30 SULFAMETHOXAZOLE-TRIMETHOPRIM 29501807180 No Longer Active Myrna Roberto MD Active VICKS DAYQUIL SEVERE COLD/FLU TABLET 1 tab every 6 hours prn 201 02/22/17 [id number] TABS 44444296043 No Longer Active K fany Roberto MD Active GUAIFENESIN-CODEINE 100-10 MG/5ML ORAL SYRUP 2 tsp every 6 hours prn GUAIFENESIN-CODEINE 45832421076 No Longer Active Myrna Roberto MD Active NAPROXEN 500 MG ORAL TABLET one tab PO BID NAPR OXEN 73330743413 No Longer Active Myrna Roberto MD Active AUGMENTIN 875-125 MG ORAL TABLET 1 tab by mouth twice daily with food AMOXICILLIN-POT CLAVULANATE 11228950153 No Longer Act zaid Liliana Estrada MD PhD Active AMOXICILLIN 500 MG ORAL CAPSULE 1 tab by mouth 3 times daily 201 02/21/05 AMOXICILLIN 70130894927 No Longer Active Liliana Estrada MD PhD Active TESSALON PERLES 100 MG ORAL CAPSULE 1 tablet by mouth 3 times da cory BENZONATATE 96386417787 No Longer Active Liliana Estrada MD PhD Active FLAGYL 500 MG ORAL TABLET 1 tablet by mouth two times daily 2014 METRONIDAZOLE 56383385372 No Longer Active Nilam Raida Ac tive ZITHROMAX 250 MG ORAL TABLET 2 po today, then 1 po q days 2-5 20 06/08/16 AZITHROMYCIN 20274714961 No Longer Active Arie Casper MD Active VITAMINS 0.8 MG ORAL TABLET take 1 tab po qday [id number] 12762779450 No Longer Active Arie Casper MD Active IBUPROFEN 800 MG ORAL TABLET take one po Q 8 hours 201 02/01/16 IBUPROFEN 72489643768 No Longer Active Arie Casper MD Acti ve [facility] TUSSIN COUGH/COLD CF 5-10-100 MG/5ML ORAL LIQUID 2 teasp oons every 4 hours [id number] 74731033807 No Longer Active Blaine Casper MD Active COMTREX COLD/COUGH DAY/NITE MS 5-2-10-325 MG ORAL 2 caps deja ry 4 hours [id number] 01464535272 No Longer Active Landon Casper MD Active CHLORASEPTIC MAX SORE THROAT 15-10 MG MOUTH/THROAT LOZENGE 1 every 2 hours prn BENZOCAINE-MENTHOL 10290476421 No Longer Active Arie Casper MD Active PREDNISONE 20 MG ORAL TABLET 2 tabs daily for 3 days, 1 tab daily for 3 days, 1/2 tab daily for 2 days PREDNISONE 07749741574 No Longer Active Jose Zhong MD Active AZITHROMYCIN 250 MG ORAL TABLET 2 po qd x 1 day, then 1 po q d x 4 days AZITHROMYCIN 98230892123 No Longer Active Jose Mcwilliams MD Active ZOFRAN ODT 4 MG ORAL TABLET DISINTEGRATING 1 po q6hr PRN Nausea ONDANSETRON 61070058327 No Longer Active Rich Rosales MD Active ZOFRAN 4 MG ORAL TABLET 1 tablet every 4 hours ONDANSETRON HCL 37646739462 No Longer Active Rich Rosales MD Activ e MUCINEX 600 MG ORAL TABLET EXTENDED RELEASE 12 HOUR Ta ke 1-2 tablets every 12 hours GUAIFENESIN 64487058772 No Longer Active Rich Rosales MD Active BACTRIM 400-80 MG ORAL TABLET take one po BID SULFAMETHOXAZOLE-TRIMETHOPRIM 20645907490 No Longer Active Abelardo HERNANDEZ Active AZITHROMYCIN 500 MG ORAL TABLET 1 PO q day x 6 days 03/02/23 AZITHROMYCIN 23823453899 No Longer Active Tin HERNANDEZ Activ e ZITHROMAX 250 MG ORAL TABLET 2 po today, then 1 po q days 2-5 20 10/03/08 AZITHROMYCIN 85297821194 No Longer Active Arie Casper MD Active ZITHROMAX 250 MG ORAL TABLET 2 po today, then 1 po q days 2-5 20 09/23/25 AZITHROMYCIN 55174302959 No Longer Active Arie Casper MD Active AMOXICILLIN 500 MG ORAL CAPSULE 1 tab by mouth 3 times daily 201 11/24/09 AMOXICILLIN 78518695013 No Longer Active Arie Casper MD Active BACTRIM DS 800-160 MG ORAL TABLET 1 tab by mouth twice daily 201 11/03/14 TRIMETHOPRIM-SULFAMETHOXAZOLE 45337247662 No Longer Active Fozia Casper MD Active AMOXICILLIN 500 MG ORAL TABLET take 1 tab po TID 08/05 AMOXICILLIN 14685809803 No Longer Active Arie Casper MD Acti ve BACTRIM DS 800-160 MG ORAL TABLET 1 tab by mouth twice daily 201 11/03/14 BACTRIM DS 800-160 MG ORAL TABLET 728910 TRIMETHOPRIM-SULFAMETHOXAZOLE Inactive MUCINEX 600 MG ORAL TABLET EXTENDED RELEASE 12 HOUR Ta ke 1-2 tablets every 12 hours MUCINEX 600 MG ORAL TABLET EXTENDED RELEA SE 12 HOUR GUAIFENESIN Inactive ZOFRAN 4 MG ORAL TABLET 1 tablet every 4 hours ZOFRAN 4 MG ORAL TABLET 297243 ONDANSETRON HCL Inactive ZOFRAN ODT 4 MG ORAL TABLET DISINTEGRATING 1 po q6hr PRN Nausea ZOFRAN ODT 4 MG ORAL TABLET DISINTEGRATING 704657 ONDAN SETRON Inactive CHLORASEPTIC MAX SORE THROAT 15-10 MG MOUTH/THROAT LOZENGE 1 every 2 hours prn CHLORASEPTIC MAX SORE THROAT 15-10 MG MOUTH/THROAT LOZENGE BENZOCAINE-MENTHOL Inactive COMTREX COLD/COUGH DAY/NITE MS 5-2-10-325 MG ORAL 2 caps deja ry 4 hours COMTREX COLD/COUGH DAY/NITE MS 5-2-10-325 MG ORA L [id number] Inactive [facility] TUSSIN COUGH/COLD CF 5-10-100 MG/5ML ORAL LIQUID 2 teasp oons every 4 hours [facility] TUSSIN COUGH/COLD CF 5-10-100 MG/5ML ORAL LI QUID [id number] Inactive IBUPROFEN 800 MG ORAL TABLET take one po Q 8 hours 201 02/01/16 IBUPROFEN 800 MG ORAL TABLET 938561 IBUPROFEN Inactive VITAMINS 0.8 MG ORAL TABLET take 1 tab po qday VITAMINS 0.8 MG ORAL TABLET [id number] E-FA Inactive TESSALON PERLES 100 MG ORAL CAPSULE 1 tablet by mouth 3 times da cory TESSALON PERLES 100 MG ORAL CAPSULE 471765 BENZONATATE Inactive AMOXICILLIN 500 MG ORAL CAPSULE 1 tab by mouth 3 times daily 201 02/21/05 AMOXICILLIN 500 MG ORAL CAPSULE 057535 AMOXICILLIN Inactive GUAIFENESIN-CODEINE 100-10 MG/5ML ORAL SYRUP 2 tsp every 6 hours prn GUAIFENESIN-CODEINE 100-10 MG/5ML ORAL SYRUP 219964 GUAIFENESIN-CODEINE Inactive VICKS DAYQUIL SEVERE COLD/FLU TABLET 1 tab every 6 hours prn 201 02/22/17 VICKS DAYQUIL SEVERE COLD/FLU TABLET PHENYLEPHRI [id number] TABS Inactive BACTRIM DS 800-160 MG ORAL TABLET 1 twice a day 05/30 BACTRIM DS 800-160 MG ORAL TABLET 650748 SULFAMETHOXAZOLE-TRIMETHOPRIM Inactiv e PROMETHAZINE HCL 25 MG ORAL TABLET 1 four times a day as nee ded for vomiting PROMETHAZINE HCL 25 MG ORAL TABLET 395726 PROMETHAZINE HCL Inactive ZYRTEC ALLERGY 10 MG ORAL CAPSULE 1 po qd ZYRTEC ALLERGY 10 MG ORAL CAPSULE CETIRIZINE HCL Inactive MACROBID 100 MG ORAL CAPSULE 1 cap by mouth twice daily MACROBID 100 MG ORAL CAPSULE 6567589 NITROFURANTOIN MONOHYD MACRO In active LOMOTIL 2.5-0.025 MG ORAL TABLET 1 to 2 four times a day as needed for diarrhea LOMOTIL 2.5-0.025 MG ORAL TABLET 9967821 DIPHENOXYLATE-ATROPINE Inactive CYCLOBENZAPRINE HCL 10 MG ORAL TABLET 1/2 - 1 tablet b y mouth three times daily as needed for muscle spasm/pain CYCLOBEN ZAPRINE HCL 10 MG ORAL TABLET 922499 CYCLOBENZAPRINE HCL Inactive AMOXICILLIN 500 MG ORAL TABLET 2 tabs twice a day for 10 days 07/09/11 AMOXICILLIN 500 MG ORAL TABLET 222079 AMOXICILLIN I nactive LOMOTIL 2.5-0.025 MG ORAL TABLET 1 to 2 four times a day as needed for diarrhea LOMOTIL 2.5-0.025 MG ORAL TABLET 2081998 DIPHENOXYLATE-ATROPINE Inactive ZOFRAN 4 MG ORAL TABLET 1 TAB PO Q 6 HRS PRN NAUSEA 07/10/15 ZOFRAN 4 MG ORAL TABLET 174709 ONDANSETRON HCL Inactive CITRATE OF MAGNESIA ORAL SOLUTION 1 bottle today for constipatio n CITRATE OF MAGNESIA ORAL SOLUTION 9300193 MAGNESIUM CITR ATE Inactive PROMETHAZINE HCL 12.5 MG ORAL TABLET 1 tablet by mouth every 6 hours as needed for nausea/vomiting PROMETHAZINE HCL 12.5 MG ORA L TABLET 121561 PROMETHAZINE HCL Inactive PREDNISONE 20 MG ORAL TABLET 1 tablet twice daily for 2 days, then 1 tablet once daily for 2 days PREDNISONE 20 MG ORAL TABLET 002778 PREDNISONE Inactive ALPRAZOLAM 0.25 MG ORAL TABLET 1 tablet by mouth every 8 hours as needed for stress ALPRAZOLAM 0.25 MG ORAL TABLET 230479 ALPRA ZOLAM Inactive FLONASE 50 MCG/ACT NASAL SUSPENSION 1 spray each nostr il twice daily for allergies and runny nose until gone FLON ASE 50 MCG/ACT NASAL SUSPENSION 8479511 FLUTICASONE PROPIONATE Inactive PREDNISONE 20 MG ORAL TABLET 1 tablet daily for airway inflammat ion PREDNISONE 20 MG ORAL TABLET 762266 PREDNISONE Arlen ctive NAPROXEN 500 MG ORAL TABLET Take 1 tab BID NAPROXEN 500 MG ORAL TABLET 444768 NAPROXEN Inactive ZOLOFT 50 MG ORAL TABLET 1 tablet by mouth daily 12/08 ZOLOFT 50 MG ORAL TABLET 876924 SERTRALINE HCL Inactive LOMOTIL 2.5-0.025 MG ORAL TABLET 1 tab po four times a day as needed for diarrhea LOMOTIL 2.5-0.025 MG ORAL TABLET 4180047 DIPHENOXYLATE-ATROPINE Inactive CETIRIZINE HCL 10 MG ORAL TABLET 1 po qd PRN Allergies CETIRIZINE HCL 10 MG ORAL TABLET 8879959 CETIRIZINE HCL Inactiv e TUSSIONEX PENNKINETIC ER 10-8 MG/5ML ORAL SUSPENSION E XTENDED RELEASE 5ml po q12hr PRN Cough TUSSIONEX PENNKINETI C ER 10-8 MG/5ML ORAL SUSPENSION EXTENDED RELEASE HYDROCOD POLST-CHLORPHEN POLST I nactive NEXPLANON IMPLANT right arm subcutaneously NEXPLANON IMPLANT ETONOGESTREL IMPL Inactive PROTONIX 40 MG ORAL TABLET DELAYED RELEASE 1 po q a.m. PROTONIX 40 MG ORAL TABLET DELAYED RELEASE 828864 PANTOPRAZOLE SODI UM Inactive CHERATUSSIN AC 100-10 MG/5ML ORAL SYRUP 1 tsp by mouth every 4 hours as needed for cough CHERATUSSIN AC 100-10 MG/5ML ORAL SYRUP 9 10664 GUAIFENESIN-CODEINE Inactive GUAIFENESIN DM 400-20 MG ORAL TABLET 1 pill by mouth t wice daily, if needed for cough GUAIFENESIN DM 400-20 MG ORAL TABLET 1147 797 DEXTROMETHORPHAN-GUAIFENESIN Inactive TUSSIONEX PENNKINETIC ER 10-8 MG/5ML ORAL SUSPENSION E XTENDED RELEASE 5ml po q12hr PRN Cough TUSSIONEX PENNKINETI C ER 10-8 MG/5ML ORAL SUSPENSION EXTENDED RELEASE HYDROCOD POLST-CHLORPHEN POLST I nactive AMOXICILLIN 500 MG ORAL TABLET take 1 tab po TID 08/05 AMOXICILLIN 500 MG ORAL TABLET 978743 AMOXICILLIN Inactive AMOXICILLIN 500 MG ORAL CAPSULE 1 tab by mouth 3 times daily 201 11/24/09 AMOXICILLIN 500 MG ORAL CAPSULE 618131 AMOXICILLIN Inactive ZITHROMAX 250 MG ORAL TABLET 2 po today, then 1 po q days 2-5 20 09/23/25 ZITHROMAX 250 MG ORAL TABLET 195936 AZITHROMYCIN Arlen ctive ZITHROMAX 250 MG ORAL TABLET 2 po today, then 1 po q days 2-5 20 10/03/08 ZITHROMAX 250 MG ORAL TABLET 375976 AZITHROMYCIN Napanoch ctive AZITHROMYCIN 500 MG ORAL TABLET 1 PO q day x 6 days 20 03/02/23 AZITHROMYCIN 500 MG ORAL TABLET 3112754 AZITHROMYCIN Inactive BACTRIM 400-80 MG ORAL TABLET take one po BID BACTRIM 400- 80 MG ORAL TABLET 171852 SULFAMETHOXAZOLE-TRIMETHOPRIM Inactive AZITHROMYCIN 250 MG ORAL TABLET 2 po qd x 1 day, then 1 po q d x 4 days AZITHROMYCIN 250 MG ORAL TABLET 466690 AZITHROMY ALLISON Inactive PREDNISONE 20 MG ORAL TABLET 2 tabs daily for 3 days, 1 tab daily for 3 days, 1/2 tab daily for 2 days PREDNISONE 20 MG ORAL T ABLET 596389 PREDNISONE Inactive ZITHROMAX 250 MG ORAL TABLET 2 po today, then 1 po q days 2-5 20 06/08/16 ZITHROMAX 250 MG ORAL TABLET 285838 AZITHROMYCIN Napanoch ctive FLAGYL 500 MG ORAL TABLET 1 tablet by mouth two times daily 2014 FLAGYL 500 MG ORAL TABLET 972028 METRONIDAZOLE Inacti ve AUGMENTIN 875-125 MG ORAL TABLET 1 tab by mouth twice daily with food AUGMENTIN 875-125 MG ORAL TABLET 153636 AMOXICIL ELSA-POT CLAVULANATE Inactive NAPROXEN 500 MG ORAL TABLET one tab PO BID NAPROXEN 500 MG ORAL TABLET 800778 NAPROXEN Inactive PREDNISONE 20 MG ORAL TABLET 2 tabs daily for 3 days, 1 tab daily for 3 days, 1/2 tab daily for 2 days PREDNISONE 20 MG ORAL T ABLET 361993 PREDNISONE Inactive AZITHROMYCIN 250 MG ORAL TABLET 2 po qd x 1 day, then 1 po q d x 4 days AZITHROMYCIN 250 MG ORAL TABLET 009219 AZITHROMY ALLISON Inactive PREDNISONE 20 MG ORAL TABLET 2 tabs daily for 3 days, 1 tab daily for 3 days, 1/2 tab daily for 2 days PREDNISONE 20 MG ORAL T ABLET 939242 PREDNISONE Inactive ZITHROMAX Z-EMIL 250 MG ORAL TABLET 2 today, then 1 daily for 4 d ays ZITHROMAX Z-EMIL 250 MG ORAL TABLET 611192 AZITHROMYCIN Inactive CEFDINIR 300 MG ORAL CAPSULE 1 po BID x 10 days 12/18 CEFDINIR 300 MG ORAL CAPSULE 780998 CEFDINIR Inactive CEFDINIR 300 MG ORAL CAPSULE 1 po BID x 10 days CEFDINIR 300 MG ORAL CAPSULE 779276 CEFDINIR Inactive PREDNISONE 20 MG ORAL TABLET 2 tabs daily for 3 days, 1 tab daily for 3 days, 1/2 tab daily for 2 days PREDNISONE 20 MG ORAL T ABLET 680360 PREDNISONE Inactive BACTRIM DS 800-160 MG ORAL TABLET 1 tab by mouth twice daily 201 05/02/30 BACTRIM DS 800-160 MG ORAL TABLET 389696 TRIMETHOPRIM-SULFAMETHOXAZOLE Inactive ZITHROMAX Z-EMIL 250 MG ORAL TABLET 2 today, then 1 daily for 4 d ays ZITHROMAX Z-EMIL 250 MG ORAL TABLET 752665 AZITHROMYCIN Inactive TAMIFLU 75 MG ORAL CAPSULE 1 po BID x 5 days 0 TAMIFLU 75 MG ORAL CAPSULE 136815 OSELTAMIVIR PHOSPHATE Inactive CEFDINIR 300 MG ORAL CAPSULE 1 po BID x 10 days 01/03 CEFDINIR 300 MG ORAL CAPSULE 259292 CEFDINIR Inactive ZITHROMAX Z-EMIL 250 MG TABS Take two tablets today and then 1 tablet daily for 4 days ZITHROMAX Z-EMIL 250 MG TABS 680486 AZITHROM YCIN Inactive AMOXICILLIN 875 MG ORAL TABLET 1 tab by mouth twice daily AMOXICILLIN 875 MG ORAL TABLET 823711 AMOXICILLIN Inactive Advance Directives Directive Description Start [...] Negative Encounters Code Encounter Date Provider Facility CPT-35066 [id number] Vst-Est Level III 09:41:31 CDT Arie Casper MD [facility] CPT-35215 [id number] Vst-Est Level III 18:20:11 CDT Me lobito Russ APRN [facility] CPT-82555 [id number] Vst-Est Level III 17:21:41 CDT Me lobito Russ [facility] CPT-08524 [id number] Vst-Est Level IV 13:30:22 C NIC Casper MD [facility] CPT-19142 Level 4 Est. Patient 13:05:26 CDT Myrna Real Bernabe maldonado MD [facility]-66484 [id number] Vst-Est Level IV 20:50:21 C DT Arie Casper MD [facility] CPT-73415 Level 3 Est. Patient 11:49:34 CORE MICROARCHITECT Jessica boyd [facility]-72828 Level 3 Est. Patient 14:55:50 CORE MICROARCHITECT Jose Zhong MD [facility] CPT-82681 Level 3 Est. Patient 10:21:41 CORE MICROARCHITECT Arie mcqueen MD [facility] CPT-96919 Level 3 Est. Patient 11:35:15 CORE MICROARCHITECT Arie mcqueen MD [facility] CPT-68680 Level 3 Est. Patient 15:40:28 CDT Brii Are [facility] CPT-76606 Level 3 Est. Patient 16:40:36 CDT Arie mcqueen MD [facility]-46090 Level 4 Est. Patient 15:29:22 CORE MICROARCHITECT Arie mcqueen MD [facility] CPT-16773 Level 3 Est. Patient 15:18:16 CORE MICROARCHITECT Jono black DO [facility] CPT-08174 Level 4 Est. Patient 12:08:40 CORE MICROARCHITECT Brii Are [facility] CPT-19018 Level 3 Est. Patient 09:24:42 CDT Brii Are [facility] CPT-96827 Level 3 Est. Patient 09:12:56 CDT Arie mcqueen MD [facility] CPT-38822 Level 3 Est. Patient 16:40:54 CDT Jose Zhong MD [facility] CPT-29701 Level 2 Est. Patient 13:01:13 CDT Brii Yepez ll [facility] CPT-67178 Level 3 Est. Patient 11:55:30 CORE MICROARCHITECT Jono black DO [facility] CPT-28940 Level 3 Est. Patient 09:52:36 CORE MICROARCHITECT Brii Yepez ll [facility] CPT-59313 Level 3 Est. Patient 16:25:33 CORE MICROARCHITECT Rich Rosales MD [facility] CPT-89917 Level 3 Est. Patient 20:33:55 CDT Arie mcqueen MD [facility] CPT-05909 Level 3 Est. Patient 14:18:20 CDT Rich Rosales MD [facility] CPT-65121 Level 4 Est. Patient 09:34:31 CDT Arie mcqueen MD [facility] CPT-83463 Level 3 Est. Patient 09:08:55 CORE MICROARCHITECT Liliana vincent MD PhD [facility]-37092 Level 3 Est. Patient 16:44:07 CORE MICROARCHITECT Arie mcqueen MD [facility] CPT-14391 Level 3 Est. Patient 10:44:27 CDT Arie mcqueen MD [facility] CPT-25619 Level 3 Est. Patient 08:55:41 CDT Jose Zhong MD [facility] CPT-82362 Level 3 Est. Patient 18:37:31 CDT Liliana vincent MD PhD [facility]-33183 Level 3 Est. Patient 14:28:23 CDT Abelardo HERNANDEZ [facility] CPT-08627 Level 3 Est. Patient 15:18:13 CORE MICROARCHITECT Arie mcqueen MD [facility] CPT-42179 Level 3 Est. Patient 10:11:29 CORE MICROARCHITECT Arie mcqueen MD [facility] CPT-22269 Level 3 Est. Patient 10:55:57 CORE MICROARCHITECT Jono Cheema sofia DO [facility] CPT-06027 Level 3 Est. Patient 17:29:05 CDT Arie mcqueen MD [facility] Procedures Code Procedure Name Date Entry Date Standard Desc ription CPT-84466 Sono Soft Tissue Head and Neck - XRAY US E ONLY 17:10:14 CDT CPT-17864 Ear Wash with irrigation 17:21:41 CDT 07/04 CPT-31800 Nexplanon Removal 15:40:28 CDT CPT-25464 Sono transvag pelvis non OB uterus ovari es cervix - XRAY USE ONLY 08:58:14 CORE MICROARCHITECT CPT-27408 UA w micro - LAB USE ONLY 16:04:56 CORE MICROARCHITECT 2015 CPT-72860 Wet Prep/GEN - LAB USE ONLY 16:04:56 CORE MICROARCHITECT 20 08/10/29 CPT-79889 First Vx - Ix admin via ID I M or jet injects without counseling by physician 16:57:10 CDT CPT-42924 Fluzone Preservative Free Intramuscular Suspension 16:57:10 CDT CPT-J0696 Rocephin 1000 mg (Ceftriaxone) 11:49:23 CDT CPT-J1040 Depo Medrol 80 mg (Methyl Prednisolone A cetate) 11:49:23 CDT CPT-J1100 Decadron 8mg (Dexamethasone) 11:49:23 CDT 2 CPT-92135 Abx/Therapy Injection 11:49:23 CDT CPT-53094 Abx/Therapy Injection 11:49:23 CDT CPT-71826 Abd compl w upright 09:07:26 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
--- OUTSIDE RECORDS SUMMARY | 2020-03-03 07:49 | XMS REPORT | Clinical Summary ---
Author Author Admin, Diamante Marcelo Organization [employer] Address Unknown Phone Unavailable Allergies, Adverse Reactions, [...] respiratory manifestations Sinusitis 473.9 Active Jessica Heaton [employer] SAL[employer] REPRESENTATIVE Unspecified sinusitis (chronic) Other mixed anxiety 300.00 [...] Cerumen impaction, bilateral 380.4 Active Brii Russ [employer] SAL[employer] REPRESENTATIVE Impacted cerumen Tonsillar enlargement 474.11 Active Brii Russ APRN Hypertrophy of tonsils alone Influenza Vaccination for Prophylaxis V04.81 Inactive Brii Russ [employer] REPRESENTATIVE Need for prophylactic vaccin ation and inoculation against influenza Submandibular lymph node 785.6 Active Brii Are ll [employer] SAL[employer] REPRESENTATIVE Enlargement of lymph nodes Influenza Vaccination for [...] MG ORAL CAPSULE 1 po tid CEPHALEXIN 266536 27529 Active Brii Russ APRN Active PROTONIX 40 MG ORAL TABLET DELAYED RELEASE 1 pill by m outh daily, for acid reflux PANTOPRAZOLE SODIUM 42796877704 Active Roseann Crawford Active AMOXICILLIN 875 MG ORAL TABLET 1 tab by mouth twice daily 1 AMOXICILLIN 78589364896 No Longer Active Brii Russ APRN Active ALPRAZOLAM 0.25 MG ORAL TABLET 1 tablet by mouth twice a day as needed for stress/anxiety ALPRAZOLAM 69731421310 Active KELLIE Escobar Active ESCITALOPRAM OXALATE 10 MG ORAL TABLET take 1 tab po qhs for mod 20 10/04/18 ESCITALOPRAM OXALATE 24350129883 Active Arie Casper MD Active TUSSIONEX PENNKINETIC ER 10-8 MG/5ML ORAL SUSPENSION E XTENDED RELEASE 5ml po q12hr PRN Cough HYDROCOD POLST-CHLORPHEN POLST 5 9421774200 No Longer Active Myrna Roberto MD Active ZITHROMAX Z-EMIL 250 MG TABS Take two tablets today and then 1 tablet daily for 4 days AZITHROMYCIN 24497760016 No Longer Active Flaco Rosales MD Active GUAIFENESIN DM 400-20 MG ORAL TABLET 1 pill by mouth t wice daily, if needed for cough DEXTROMETHORPHAN-GUAIFENESIN 98860169396 No Longer Active Rich Rosales MD Active CEFDINIR 300 MG ORAL CAPSULE 1 po BID x 10 days CEFDINIR 96632050412 No Longer Active Jessica Heaton APRN Active CHERATUSSIN AC 100-10 MG/5ML ORAL SYRUP 1 tsp by mouth every 4 hours as needed for cough GUAIFENESIN-CODEINE 33115104296 No Longe r Active Jessica Heaton APRN Active TAMIFLU 75 MG ORAL CAPSULE 1 po BID x 5 days 0 OSELTAMIVIR PHOSPHATE 30975949239 No Longer Active Jose Zhong MD Activ e ZITHROMAX Z-EMIL 250 MG ORAL TABLET 2 today, then 1 daily for 4 d ays AZITHROMYCIN 32385276392 No Longer Active Arie Casper MD Active PROTONIX 40 MG ORAL TABLET DELAYED RELEASE 1 po q a.m. PANTOPRAZOLE SODIUM 29943719562 No Longer Active Arie Casper MD Active BACTRIM DS 800-160 MG ORAL TABLET 1 tab by mouth twice daily 201 05/02/30 TRIMETHOPRIM-SULFAMETHOXAZOLE 69079531923 No Longer Active R mdalberto Crawford Active NEXPLANON IMPLANT right arm subcutaneously ETONOGESTREL IMPL 84653931853 No Longer Active Brii Areboris [employer] SAL[employer] REPRESENTATIVE Active TUSSIONEX PENNKINETIC ER 10-8 MG/5ML ORAL SUSPENSION E XTENDED RELEASE 5ml po q12hr PRN Cough HYDROCOD POLST-CHLORPHEN POLST 5 0220969687 No Longer Active Brii Arell [employer] SAL[employer] REPRESENTATIVE Active CETIRIZINE HCL 10 MG ORAL TABLET 1 po qd PRN Allergies CETIRIZINE HCL 31690942218 No Longer Active Brii Arell [employer] SAL[employer] REPRESENTATIVE Activ e PREDNISONE 20 MG ORAL TABLET 2 tabs daily for 3 days, 1 tab daily for 3 days, 1/2 tab daily for 2 days PREDNISONE 58302311807 No Longer Active Arie Casper MD Active LOMOTIL 2.5-0.025 MG ORAL TABLET 1 tab po four times a day as needed for diarrhea DIPHENOXYLATE-ATROPINE 18152717423 No Lo nger Active Arie Casper MD Active ZOLOFT 50 MG ORAL TABLET 1 tablet by mouth daily 12/08 SERTRALINE HCL 59927219801 No Longer Active Arie Casper MD Ac tive NAPROXEN 500 MG ORAL TABLET Take 1 tab BID NAPR OXEN 88981269321 No Longer Active Arie Casper MD Active CEFDINIR 300 MG ORAL CAPSULE 1 po BID x 10 days CEFDINIR 30543201895 No Longer Active Brii Russ APRN Active PREDNISONE 20 MG ORAL TABLET 1 tablet daily for airway inflammat ion PREDNISONE 37217544303 No Longer Active Brii Russ APRN A ctive CEFDINIR 300 MG ORAL CAPSULE 1 po BID x 10 days CEFDINIR 72921207332 No Longer Active Jono Gagnon DO Active FLONASE 50 MCG/ACT NASAL SUSPENSION 1 spray each nostr il twice daily for allergies and runny nose until gone FLUT ICASONE PROPIONATE 00343171795 No Longer Active Jono Gagnon DO Active ALPRAZOLAM 0.25 MG ORAL TABLET 1 tablet by mouth every 8 hours as needed for stress ALPRAZOLAM 51891804722 No Longer Active Jono Gagnon DO Active ZITHROMAX Z-EMIL 250 MG ORAL TABLET 2 today, then 1 daily for 4 d ays AZITHROMYCIN 53856888507 No Longer Active Arie Casper MD Active PREDNISONE 20 MG ORAL TABLET 2 tabs daily for 3 days, 1 tab daily for 3 days, 1/2 tab daily for 2 days PREDNISONE 71680474236 No Longer Active Brii Russ APRN Active PREDNISONE 20 MG ORAL TABLET 1 tablet twice daily for 2 days, then 1 tablet once daily for 2 days PREDNISONE 85217557743 No Longer Active Brii Russ APRN Active PROMETHAZINE HCL 12.5 MG ORAL TABLET 1 tablet by mouth every 6 hours as needed for nausea/vomiting PROMETHAZINE HCL 85443141513 No L onger Active Jono Gagnon DO Active CITRATE OF MAGNESIA ORAL SOLUTION 1 bottle today for constipatio n MAGNESIUM CITRATE 76337217381 No Longer Active Jono Gagnon DO Active ZOFRAN 4 MG ORAL TABLET 1 TAB PO Q 6 HRS PRN NAUSEA 07/10/15 ONDANSETRON HCL 93190166781 No Longer Active Brii Russ APRN Acti ve LOMOTIL 2.5-0.025 MG ORAL TABLET 1 to 2 four times a day as needed for diarrhea DIPHENOXYLATE-ATROPINE 83998000207 No Longer Active January Russ APRN Active AMOXICILLIN 500 MG ORAL TABLET 2 tabs twice a day for 10 days 07/09/11 AMOXICILLIN 35624676966 No Longer Active Brii Russ APRN Active CYCLOBENZAPRINE HCL 10 MG ORAL TABLET 1/2 - 1 tablet b y mouth three times daily as needed for muscle spasm/pain CYCLOBENZAPRINE HCL 66244586886 No Longer Active Arie Casper MD Active LOMOTIL 2.5-0.025 MG ORAL TABLET 1 to 2 four times a day as needed for diarrhea DIPHENOXYLATE-ATROPINE 37552840809 No Longer Active Fozia Casper MD Active MACROBID 100 MG ORAL CAPSULE 1 cap by mouth twice daily NITROFURANTOIN MONOHYD MACRO 44753033612 No Longer Active Arie Casper MD Active ZYRTEC ALLERGY 10 MG ORAL CAPSULE 1 po qd CE TIRIZINE HCL 62177669600 No Longer Active Arie Casper MD Active AZITHROMYCIN 250 MG ORAL TABLET 2 po qd x 1 day, then 1 po q d x 4 days AZITHROMYCIN 27752276198 No Longer Active Jessica salgado APRN Active PREDNISONE 20 MG ORAL TABLET 2 tabs daily for 3 days, 1 tab daily for 3 days, 1/2 tab daily for 2 days PREDNISONE 27000190131 No Longer Active Jessica Heaton APRN Active PROMETHAZINE HCL 25 MG ORAL TABLET 1 four times a day as nee ded for vomiting PROMETHAZINE HCL 33082564976 No Longer Active Myrna Roberto MD Active BACTRIM DS 800-160 MG ORAL TABLET 1 twice a day 05/30 SULFAMETHOXAZOLE-TRIMETHOPRIM 02620081760 No Longer Active Myrna Roberto MD Active VICKS DAYQUIL SEVERE COLD/FLU TABLET 1 tab every 6 hours prn 201 02/22/17 [id number] TABS 98357553493 No Longer Active K fany Roberto MD Active GUAIFENESIN-CODEINE 100-10 MG/5ML ORAL SYRUP 2 tsp every 6 hours prn GUAIFENESIN-CODEINE 80151295398 No Longer Active Myrna Roberto MD Active NAPROXEN 500 MG ORAL TABLET one tab PO BID NAPR OXEN 74040558415 No Longer Active Myrna Roberto MD Active AUGMENTIN 875-125 MG ORAL TABLET 1 tab by mouth twice daily with food AMOXICILLIN-POT CLAVULANATE 28708891789 No Longer Act zaid Liliana Estrada MD PhD Active AMOXICILLIN 500 MG ORAL CAPSULE 1 tab by mouth 3 times daily 201 02/21/05 AMOXICILLIN 99861583017 No Longer Active Liliana Estrada MD PhD Active TESSALON PERLES 100 MG ORAL CAPSULE 1 tablet by mouth 3 times da cory BENZONATATE 27343988074 No Longer Active Liliana Estrada MD PhD Active FLAGYL 500 MG ORAL TABLET 1 tablet by mouth two times daily 2014 METRONIDAZOLE 29332591115 No Longer Active Nilam Raida Ac tive ZITHROMAX 250 MG ORAL TABLET 2 po today, then 1 po q days 2-5 20 06/08/16 AZITHROMYCIN 69486923299 No Longer Active Arie Casper MD Active VITAMINS 0.8 MG ORAL TABLET take 1 tab po qday [id number] 42711376554 No Longer Active Arie Casper MD Active IBUPROFEN 800 MG ORAL TABLET take one po Q 8 hours 201 02/01/16 IBUPROFEN 83057712001 No Longer Active Arie Casper MD Acti ve [facility] TUSSIN COUGH/COLD CF 5-10-100 MG/5ML ORAL LIQUID 2 teasp oons every 4 hours [id number] 50989314887 No Longer Active Blaine Casper MD Active COMTREX COLD/COUGH DAY/NITE MS 5-2-10-325 MG ORAL 2 caps deja ry 4 hours [id number] 38801099621 No Longer Active Landon Casper MD Active CHLORASEPTIC MAX SORE THROAT 15-10 MG MOUTH/THROAT LOZENGE 1 every 2 hours prn BENZOCAINE-MENTHOL 66456052877 No Longer Active Arie Casper MD Active PREDNISONE 20 MG ORAL TABLET 2 tabs daily for 3 days, 1 tab daily for 3 days, 1/2 tab daily for 2 days PREDNISONE 77914121548 No Longer Active Jose Zhong MD Active AZITHROMYCIN 250 MG ORAL TABLET 2 po qd x 1 day, then 1 po q d x 4 days AZITHROMYCIN 81759661881 No Longer Active Jose Mcwilliams MD Active ZOFRAN ODT 4 MG ORAL TABLET DISINTEGRATING 1 po q6hr PRN Nausea ONDANSETRON 65249863583 No Longer Active Rich Rosales MD Active ZOFRAN 4 MG ORAL TABLET 1 tablet every 4 hours ONDANSETRON HCL 85858825183 No Longer Active iRch Rosales MD Activ e MUCINEX 600 MG ORAL TABLET EXTENDED RELEASE 12 HOUR Ta ke 1-2 tablets every 12 hours GUAIFENESIN 32413277553 No Longer Active Rich Rosales MD Active BACTRIM 400-80 MG ORAL TABLET take one po BID SULFAMETHOXAZOLE-TRIMETHOPRIM 50567404473 No Longer Active Abelardo HERNANDEZ Active AZITHROMYCIN 500 MG ORAL TABLET 1 PO q day x 6 days 03/02/23 AZITHROMYCIN 09541616753 No Longer Active Tin HERNANDEZ Activ e ZITHROMAX 250 MG ORAL TABLET 2 po today, then 1 po q days 2-5 20 10/03/08 AZITHROMYCIN 60279871170 No Longer Active Arie Casper MD Active ZITHROMAX 250 MG ORAL TABLET 2 po today, then 1 po q days 2-5 20 09/23/25 AZITHROMYCIN 60108823985 No Longer Active Arie Casper MD Active AMOXICILLIN 500 MG ORAL CAPSULE 1 tab by mouth 3 times daily 201 11/24/09 AMOXICILLIN 39505340850 No Longer Active Arie Casper MD Active BACTRIM DS 800-160 MG ORAL TABLET 1 tab by mouth twice daily 201 11/03/14 TRIMETHOPRIM-SULFAMETHOXAZOLE 11968069538 No Longer Active Fozia Casper MD Active AMOXICILLIN 500 MG ORAL TABLET take 1 tab po TID 08/05 AMOXICILLIN 18872347954 No Longer Active Arie Casper MD Acti ve BACTRIM DS 800-160 MG ORAL TABLET 1 tab by mouth twice daily 201 11/03/14 BACTRIM DS 800-160 MG ORAL TABLET 230208 TRIMETHOPRIM-SULFAMETHOXAZOLE Inactive MUCINEX 600 MG ORAL TABLET EXTENDED RELEASE 12 HOUR Ta ke 1-2 tablets every 12 hours MUCINEX 600 MG ORAL TABLET EXTENDED RELEA SE 12 HOUR GUAIFENESIN Inactive ZOFRAN 4 MG ORAL TABLET 1 tablet every 4 hours ZOFRAN 4 MG ORAL TABLET 635865 ONDANSETRON HCL Inactive ZOFRAN ODT 4 MG ORAL TABLET DISINTEGRATING 1 po q6hr PRN Nausea ZOFRAN ODT 4 MG ORAL TABLET DISINTEGRATING 152890 ONDAN SETRON Inactive CHLORASEPTIC MAX SORE THROAT 15-10 MG MOUTH/THROAT LOZENGE 1 every 2 hours prn CHLORASEPTIC MAX SORE THROAT 15-10 MG MOUTH/THROAT LOZENGE BENZOCAINE-MENTHOL Inactive COMTREX COLD/COUGH DAY/NITE MS 5-2-10-325 MG ORAL 2 caps deja ry 4 hours COMTREX COLD/COUGH DAY/NITE MS 5-2-10-325 MG ORA L [id number] Inactive [facility] TUSSIN COUGH/COLD CF 5-10-100 MG/5ML ORAL LIQUID 2 teasp oons every 4 hours [facility] TUSSIN COUGH/COLD CF 5-10-100 MG/5ML ORAL LI QUID [id number] Inactive IBUPROFEN 800 MG ORAL TABLET take one po Q 8 hours 201 02/01/16 IBUPROFEN 800 MG ORAL TABLET 293812 IBUPROFEN Inactive VITAMINS 0.8 MG ORAL TABLET take 1 tab po qday VITAMINS 0.8 MG ORAL TABLET [id number] E-FA Inactive TESSALON PERLES 100 MG ORAL CAPSULE 1 tablet by mouth 3 times da cory TESSALON PERLES 100 MG ORAL CAPSULE 561696 BENZONATATE Inactive AMOXICILLIN 500 MG ORAL CAPSULE 1 tab by mouth 3 times daily 201 02/21/05 AMOXICILLIN 500 MG ORAL CAPSULE 811520 AMOXICILLIN Inactive GUAIFENESIN-CODEINE 100-10 MG/5ML ORAL SYRUP 2 tsp every 6 hours prn GUAIFENESIN-CODEINE 100-10 MG/5ML ORAL SYRUP 473749 GUAIFENESIN-CODEINE Inactive VICKS DAYQUIL SEVERE COLD/FLU TABLET 1 tab every 6 hours prn 201 02/22/17 VICKS DAYQUIL SEVERE COLD/FLU TABLET PHENYLEPHRI [id number]-APAP TABS Inactive BACTRIM DS 800-160 MG ORAL TABLET 1 twice a day 05/30 BACTRIM DS 800-160 MG ORAL TABLET 195163 SULFAMETHOXAZOLE-TRIMETHOPRIM Inactiv e PROMETHAZINE HCL 25 MG ORAL TABLET 1 four times a day as nee ded for vomiting PROMETHAZINE HCL 25 MG ORAL TABLET 586019 PROMETHAZINE HCL Inactive ZYRTEC ALLERGY 10 MG ORAL CAPSULE 1 po qd ZYRTEC ALLERGY 10 MG ORAL CAPSULE CETIRIZINE HCL Inactive MACROBID 100 MG ORAL CAPSULE 1 cap by mouth twice daily MACROBID 100 MG ORAL CAPSULE 4735989 NITROFURANTOIN MONOHYD MACRO In active LOMOTIL 2.5-0.025 MG ORAL TABLET 1 to 2 four times a day as needed for diarrhea LOMOTIL 2.5-0.025 MG ORAL TABLET 3416353 DIPHENOXYLATE-ATROPINE Inactive CYCLOBENZAPRINE HCL 10 MG ORAL TABLET 1/2 - 1 tablet b y mouth three times daily as needed for muscle spasm/pain CYCLOBEN ZAPRINE HCL 10 MG ORAL TABLET 046897 CYCLOBENZAPRINE HCL Inactive AMOXICILLIN 500 MG ORAL TABLET 2 tabs twice a day for 10 days 07/09/11 AMOXICILLIN 500 MG ORAL TABLET 544988 AMOXICILLIN I nactive LOMOTIL 2.5-0.025 MG ORAL TABLET 1 to 2 four times a day as needed for diarrhea LOMOTIL 2.5-0.025 MG ORAL TABLET 0433828 DIPHENOXYLATE-ATROPINE Inactive ZOFRAN 4 MG ORAL TABLET 1 TAB PO Q 6 HRS PRN NAUSEA 07/10/15 ZOFRAN 4 MG ORAL TABLET 868716 ONDANSETRON HCL Inactive CITRATE OF MAGNESIA ORAL SOLUTION 1 bottle today for constipatio n CITRATE OF MAGNESIA ORAL SOLUTION 9135196 MAGNESIUM CITR ATE Inactive PROMETHAZINE HCL 12.5 MG ORAL TABLET 1 tablet by mouth every 6 hours as needed for nausea/vomiting PROMETHAZINE HCL 12.5 MG ORA L TABLET 270711 PROMETHAZINE HCL Inactive PREDNISONE 20 MG ORAL TABLET 1 tablet twice daily for 2 days, then 1 tablet once daily for 2 days PREDNISONE 20 MG ORAL TABLET 372719 PREDNISONE Inactive ALPRAZOLAM 0.25 MG ORAL TABLET 1 tablet by mouth every 8 hours as needed for stress ALPRAZOLAM 0.25 MG ORAL TABLET 208566 ALPRA ZOLAM Inactive FLONASE 50 MCG/ACT NASAL SUSPENSION 1 spray each nostr il twice daily for allergies and runny nose until gone FLON ASE 50 MCG/ACT NASAL SUSPENSION 1228248 FLUTICASONE PROPIONATE Inactive PREDNISONE 20 MG ORAL TABLET 1 tablet daily for airway inflammat ion PREDNISONE 20 MG ORAL TABLET 665958 PREDNISONE Arlen ctive NAPROXEN 500 MG ORAL TABLET Take 1 tab BID NAPROXEN 500 MG ORAL TABLET 147807 NAPROXEN Inactive ZOLOFT 50 MG ORAL TABLET 1 tablet by mouth daily 12/08 ZOLOFT 50 MG ORAL TABLET 968123 SERTRALINE HCL Inactive LOMOTIL 2.5-0.025 MG ORAL TABLET 1 tab po four times a day as needed for diarrhea LOMOTIL 2.5-0.025 MG ORAL TABLET 3901282 DIPHENOXYLATE-ATROPINE Inactive CETIRIZINE HCL 10 MG ORAL TABLET 1 po qd PRN Allergies CETIRIZINE HCL 10 MG ORAL TABLET 4104380 CETIRIZINE HCL Inactiv e TUSSIONEX PENNKINETIC ER 10-8 MG/5ML ORAL SUSPENSION E XTENDED RELEASE 5ml po q12hr PRN Cough TUSSIONEX PENNKINETI C ER 10-8 MG/5ML ORAL SUSPENSION EXTENDED RELEASE HYDROCOD POLST-CHLORPHEN POLST I nactive NEXPLANON IMPLANT right arm subcutaneously NEXPLANON IMPLANT ETONOGESTREL IMPL Inactive PROTONIX 40 MG ORAL TABLET DELAYED RELEASE 1 po q a.m. PROTONIX 40 MG ORAL TABLET DELAYED RELEASE 438206 PANTOPRAZOLE SODI UM Inactive CHERATUSSIN AC 100-10 MG/5ML ORAL SYRUP 1 tsp by mouth every 4 hours as needed for cough CHERATUSSIN AC 100-10 MG/5ML ORAL SYRUP 9 35496 GUAIFENESIN-CODEINE Inactive GUAIFENESIN DM 400-20 MG ORAL TABLET 1 pill by mouth t wice daily, if needed for cough GUAIFENESIN DM 400-20 MG ORAL TABLET 1141 762 DEXTROMETHORPHAN-GUAIFENESIN Inactive TUSSIONEX PENNKINETIC ER 10-8 MG/5ML ORAL SUSPENSION E XTENDED RELEASE 5ml po q12hr PRN Cough TUSSIONEX PENNKINETI C ER 10-8 MG/5ML ORAL SUSPENSION EXTENDED RELEASE HYDROCOD POLST-CHLORPHEN POLST I nactive AMOXICILLIN 500 MG ORAL TABLET take 1 tab po TID 08/05 AMOXICILLIN 500 MG ORAL TABLET 657138 AMOXICILLIN Inactive AMOXICILLIN 500 MG ORAL CAPSULE 1 tab by mouth 3 times daily 201 11/24/09 AMOXICILLIN 500 MG ORAL CAPSULE 162641 AMOXICILLIN Inactive ZITHROMAX 250 MG ORAL TABLET 2 po today, then 1 po q days 2-5 20 09/23/25 ZITHROMAX 250 MG ORAL TABLET 455107 AZITHROMYCIN Arlen ctive ZITHROMAX 250 MG ORAL TABLET 2 po today, then 1 po q days 2-5 20 10/03/08 ZITHROMAX 250 MG ORAL TABLET 997722 AZITHROMYCIN Cunningham ctive AZITHROMYCIN 500 MG ORAL TABLET 1 PO q day x 6 days 20 03/02/23 AZITHROMYCIN 500 MG ORAL TABLET 9593062 AZITHROMYCIN Inactive BACTRIM 400-80 MG ORAL TABLET take one po BID BACTRIM 400- 80 MG ORAL TABLET 998533 SULFAMETHOXAZOLE-TRIMETHOPRIM Inactive AZITHROMYCIN 250 MG ORAL TABLET 2 po qd x 1 day, then 1 po q d x 4 days AZITHROMYCIN 250 MG ORAL TABLET 310898 AZITHROMY ALLISON Inactive PREDNISONE 20 MG ORAL TABLET 2 tabs daily for 3 days, 1 tab daily for 3 days, 1/2 tab daily for 2 days PREDNISONE 20 MG ORAL T ABLET 156959 PREDNISONE Inactive ZITHROMAX 250 MG ORAL TABLET 2 po today, then 1 po q days 2-5 20 06/08/16 ZITHROMAX 250 MG ORAL TABLET 104386 AZITHROMYCIN Cunningham ctive FLAGYL 500 MG ORAL TABLET 1 tablet by mouth two times daily 2014 FLAGYL 500 MG ORAL TABLET 311780 METRONIDAZOLE Inacti ve AUGMENTIN 875-125 MG ORAL TABLET 1 tab by mouth twice daily with food AUGMENTIN 875-125 MG ORAL TABLET 740077 AMOXICIL ELSA-POT CLAVULANATE Inactive NAPROXEN 500 MG ORAL TABLET one tab PO BID NAPROXEN 500 MG ORAL TABLET 826152 NAPROXEN Inactive PREDNISONE 20 MG ORAL TABLET 2 tabs daily for 3 days, 1 tab daily for 3 days, 1/2 tab daily for 2 days PREDNISONE 20 MG ORAL T ABLET 020510 PREDNISONE Inactive AZITHROMYCIN 250 MG ORAL TABLET 2 po qd x 1 day, then 1 po q d x 4 days AZITHROMYCIN 250 MG ORAL TABLET 209410 AZITHROMY ALLISON Inactive PREDNISONE 20 MG ORAL TABLET 2 tabs daily for 3 days, 1 tab daily for 3 days, 1/2 tab daily for 2 days PREDNISONE 20 MG ORAL T ABLET 851577 PREDNISONE Inactive ZITHROMAX Z-EMIL 250 MG ORAL TABLET 2 today, then 1 daily for 4 d ays ZITHROMAX Z-EMIL 250 MG ORAL TABLET 609158 AZITHROMYCIN Inactive CEFDINIR 300 MG ORAL CAPSULE 1 po BID x 10 days 12/18 CEFDINIR 300 MG ORAL CAPSULE 996003 CEFDINIR Inactive CEFDINIR 300 MG ORAL CAPSULE 1 po BID x 10 days CEFDINIR 300 MG ORAL CAPSULE 246387 CEFDINIR Inactive PREDNISONE 20 MG ORAL TABLET 2 tabs daily for 3 days, 1 tab daily for 3 days, 1/2 tab daily for 2 days PREDNISONE 20 MG ORAL T ABLET 759063 PREDNISONE Inactive BACTRIM DS 800-160 MG ORAL TABLET 1 tab by mouth twice daily 201 05/02/30 BACTRIM DS 800-160 MG ORAL TABLET 719430 TRIMETHOPRIM-SULFAMETHOXAZOLE Inactive ZITHROMAX Z-EMIL 250 MG ORAL TABLET 2 today, then 1 daily for 4 d ays ZITHROMAX Z-EMIL 250 MG ORAL TABLET 959121 AZITHROMYCIN Inactive TAMIFLU 75 MG ORAL CAPSULE 1 po BID x 5 days 0 TAMIFLU 75 MG ORAL CAPSULE 435479 OSELTAMIVIR PHOSPHATE Inactive CEFDINIR 300 MG ORAL CAPSULE 1 po BID x 10 days 01/03 CEFDINIR 300 MG ORAL CAPSULE 820797 CEFDINIR Inactive ZITHROMAX Z-EMIL 250 MG TABS Take two tablets today and then 1 tablet daily for 4 days ZITHROMAX Z-EMIL 250 MG TABS 535225 AZITHROM YCIN Inactive AMOXICILLIN 875 MG ORAL TABLET 1 tab by mouth twice daily AMOXICILLIN 875 MG ORAL TABLET 275528 AMOXICILLIN Inactive Advance Directives Directive Description Start [...] Negative Encounters Code Encounter Date Provider Facility CPT-45259 [id number] Vst-Est Level III 09:41:31 CDT Arie Casper MD [facility] CPT-47678 [id number] Vst-Est Level III 18:20:11 CDT Me lobito Russ APRN [facility] CPT-31451 [id number] Vst-Est Level III 17:21:41 CDT Me lobito Russ [facility] [place] CPT-06221 [id number] Vst-Est Level IV 13:30:22 C NIC Casper MD [facility] CPT-87784 Level 4 Est. Patient 13:05:26 CDT Myrna Real Bernabe maldonado MD [facility]-27899 [id number] Vst-Est Level IV 20:50:21 C DT Arie Casper MD [facility] CPT-92152 Level 3 Est. Patient 11:49:34 SWIM COACH Jessica boyd [facility]-97981 Level 3 Est. Patient 14:55:50 SWIM COACH Jose Zhong MD [facility] CPT-94897 Level 3 Est. Patient 10:21:41 SWIM COACH Arie mcqueen MD [facility] CPT-70185 Level 3 Est. Patient 11:35:15 SWIM COACH Arie mcqueen MD [facility] CPT-29322 Level 3 Est. Patient 15:40:28 CDT Brii Are [facility] CPT-36075 Level 3 Est. Patient 16:40:36 CDT Arie mcqueen MD [facility]-19125 Level 4 Est. Patient 15:29:22 SWIM COACH Arie mcqueen MD [facility] CPT-24402 Level 3 Est. Patient 15:18:16 SWIM COACH Jono black DO [facility] CPT-57364 Level 4 Est. Patient 12:08:40 SWIM COACH Brii Are [facility] CPT-06819 Level 3 Est. Patient 09:24:42 CDT Brii Are [facility] CPT-76295 Level 3 Est. Patient 09:12:56 CDT Arie mcqueen MD [facility] CPT-32091 Level 3 Est. Patient 16:40:54 CDT Jose Zhong MD [facility] CPT-81820 Level 2 Est. Patient 13:01:13 CDT Brii Yepez ll [facility] [place] CPT-61149 Level 3 Est. Patient 11:55:30 SWIM COACH Jono black DO [facility] CPT-63128 Level 3 Est. Patient 09:52:36 SWIM COACH Brii Yepez ll [facility] CPT-82085 Level 3 Est. Patient 16:25:33 SWIM COACH Rich Rosales MD [facility] CPT-01437 Level 3 Est. Patient 20:33:55 CDT Arie mcqueen MD [facility] CPT-17214 Level 3 Est. Patient 14:18:20 CDT Rich Rosales MD [facility] CPT-76683 Level 4 Est. Patient 09:34:31 CDT Arie mcqueen MD [facility] CPT-88936 Level 3 Est. Patient 09:08:55 SWIM COACH Liliana vincent MD PhD [facility]-44392 Level 3 Est. Patient 16:44:07 SWIM COACH Arie mcqueen MD [facility] CPT-73835 Level 3 Est. Patient 10:44:27 CDT Arie mcqueen MD [facility] CPT-14840 Level 3 Est. Patient 08:55:41 CDT Jose Zhong MD [facility] CPT-07965 Level 3 Est. Patient 18:37:31 CDT Liliana vincent MD PhD [facility]-99400 Level 3 Est. Patient 14:28:23 CDT Abelardo HERNANDEZ [facility] CPT-13194 Level 3 Est. Patient 15:18:13 SWIM COACH Arie mcqueen MD [facility] CPT-08362 Level 3 Est. Patient 10:11:29 SWIM COACH Arie mcqueen MD [facility] CPT-48766 Level 3 Est. Patient 10:55:57 SWIM COACH Jono Cheema sofia DO [facility] CPT-53114 Level 3 Est. Patient 17:29:05 CDT Arie mcqueen MD [facility] Procedures Code Procedure Name Date Entry Date Standard Desc ription CPT-86655 Sono Soft Tissue Head and Neck - XRAY US E ONLY 17:10:14 CDT CPT-64153 Ear Wash with irrigation 17:21:41 CDT 07/04 CPT-54442 Nexplanon Removal 15:40:28 CDT CPT-12201 Sono transvag pelvis non OB uterus ovari es cervix - XRAY USE ONLY 08:58:14 SWIM COACH CPT-39335 UA w micro - LAB USE ONLY 16:04:56 SWIM COACH 2015 CPT-12707 Wet Prep/GEN - LAB USE ONLY 16:04:56 SWIM COACH 20 08/10/29 CPT-89957 First Vx - Ix admin via ID I M or jet injects without counseling by physician 16:57:10 CDT CPT-97799 Fluzone Preservative Free Intramuscular Suspension 16:57:10 CDT CPT-J0696 Rocephin 1000 mg (Ceftriaxone) 11:49:23 CDT CPT-J1040 Depo Medrol 80 mg (Methyl Prednisolone A cetate) 11:49:23 CDT CPT-J1100 Decadron 8mg (Dexamethasone) 11:49:23 CDT 2 CPT-46464 Abx/Therapy Injection 11:49:23 CDT CPT-30975 Abx/Therapy Injection 11:49:23 CDT CPT-79466 Abd compl w upright 09:07:26 SWIM COACH CPT-49094 Ear Wash 16:12:47 SWIM COACH CPT-OV Office Visit 11:12:01 CDT CPT-OV Office Visit 15:30:23 CDT CPT-49743 Sono pelvis non OB uterus ovaries cervix 15:50:44 CDT CPT-92400 Hand comp min 3V 16:42:32 CDT CPT-30178 Abd compl w upright 12:17:01 CDT CPT-43065 Nexplanon Placement 15:07:39 SWIM COACH CPT-63680 Removal of IUD 15:07:39 SWIM COACH CPT-04791 TB Tubersol 12:09:32 CDT CPT-27371 TB Tubersol 13:55:43 CDT
--- OUTSIDE RECORDS SUMMARY | 2020-03-03 07:49 | XMS REPORT | Clinical Summary ---
Author Author Admin, Diamante Marcelo Organization [employer] Address Unknown Phone Unavailable Allergies, Adverse Reactions, [...] respiratory manifestations Sinusitis 473.9 Active Jessica Heaton REALTIME REPORTER Unspecified sinusitis (chronic) Other mixed anxiety 300.00 [...] Cerumen impaction, bilateral 380.4 Active Brii Russ REALTIME REPORTER Impacted cerumen Tonsillar enlargement 474.11 Active Brii Russ APRN Hypertrophy of tonsils alone Influenza Vaccination for Prophylaxis V04.81 Inactive Brii Russ REALTIME REPORTER Need for prophylactic vaccin ation and inoculation against influenza Submandibular lymph node 785.6 Active Brii Are ll REALTIME REPORTER Enlargement of lymph nodes Influenza Vaccination for [...] MG ORAL CAPSULE 1 po tid CEPHALEXIN 779423 30503 Active Brii Russ APRN Active PROTONIX 40 MG ORAL TABLET DELAYED RELEASE 1 pill by m outh daily, for acid reflux PANTOPRAZOLE SODIUM 10132012736 Active Roseann Crawford Active AMOXICILLIN 875 MG ORAL TABLET 1 tab by mouth twice daily 1 AMOXICILLIN 02333623443 No Longer Active Brii Russ APRN Active ALPRAZOLAM 0.25 MG ORAL TABLET 1 tablet by mouth twice a day as needed for stress/anxiety ALPRAZOLAM 77878589197 Active KELLIE Escobar Active ESCITALOPRAM OXALATE 10 MG ORAL TABLET take 1 tab po qhs for mod 20 10/04/18 ESCITALOPRAM OXALATE 77582771752 Active Arie Casper MD Active TUSSIONEX PENNKINETIC ER 10-8 MG/5ML ORAL SUSPENSION E XTENDED RELEASE 5ml po q12hr PRN Cough HYDROCOD POLST-CHLORPHEN POLST 5 1048177412 No Longer Active Myrna Roberto MD Active ZITHROMAX Z-EMIL 250 MG TABS Take two tablets today and then 1 tablet daily for 4 days AZITHROMYCIN 58259343271 No Longer Active Flaco Rosales MD Active GUAIFENESIN DM 400-20 MG ORAL TABLET 1 pill by mouth t wice daily, if needed for cough DEXTROMETHORPHAN-GUAIFENESIN 07895521764 No Longer Active Rich Rosales MD Active CEFDINIR 300 MG ORAL CAPSULE 1 po BID x 10 days CEFDINIR 63021579108 No Longer Active Jessica Heaton APRN Active CHERATUSSIN AC 100-10 MG/5ML ORAL SYRUP 1 tsp by mouth every 4 hours as needed for cough GUAIFENESIN-CODEINE 83379400369 No Longe r Active Jessica Heaton APRN Active TAMIFLU 75 MG ORAL CAPSULE 1 po BID x 5 days 0 OSELTAMIVIR PHOSPHATE 04650476008 No Longer Active Jose Zhong MD Activ e ZITHROMAX Z-EMIL 250 MG ORAL TABLET 2 today, then 1 daily for 4 d ays AZITHROMYCIN 98721768080 No Longer Active Arie Casper MD Active PROTONIX 40 MG ORAL TABLET DELAYED RELEASE 1 po q a.m. PANTOPRAZOLE SODIUM 23004472422 No Longer Active Arie Casper MD Active BACTRIM DS 800-160 MG ORAL TABLET 1 tab by mouth twice daily 201 05/02/30 TRIMETHOPRIM-SULFAMETHOXAZOLE 07135340512 No Longer Active R flalberto Crawford Active NEXPLANON IMPLANT right arm subcutaneously ETONOGESTREL IMPL 59444104164 No Longer Active Rbii Areboris REALTIME REPORTER Active TUSSIONEX PENNKINETIC ER 10-8 MG/5ML ORAL SUSPENSION E XTENDED RELEASE 5ml po q12hr PRN Cough HYDROCOD POLST-CHLORPHEN POLST 5 4469534401 No Longer Active Brii Arell REALTIME REPORTER Active CETIRIZINE HCL 10 MG ORAL TABLET 1 po qd PRN Allergies CETIRIZINE HCL 22645423233 No Longer Active Brii Arell REALTIME REPORTER Activ e PREDNISONE 20 MG ORAL TABLET 2 tabs daily for 3 days, 1 tab daily for 3 days, 1/2 tab daily for 2 days PREDNISONE 50714604968 No Longer Active Arie Casper MD Active LOMOTIL 2.5-0.025 MG ORAL TABLET 1 tab po four times a day as needed for diarrhea DIPHENOXYLATE-ATROPINE 28835563776 No Lo nger Active Arie Casper MD Active ZOLOFT 50 MG ORAL TABLET 1 tablet by mouth daily 12/08 SERTRALINE HCL 17239922144 No Longer Active Arie Casper MD Ac tive NAPROXEN 500 MG ORAL TABLET Take 1 tab BID NAPR OXEN 13827203250 No Longer Active Arie Casper MD Active CEFDINIR 300 MG ORAL CAPSULE 1 po BID x 10 days CEFDINIR 40900260523 No Longer Active Brii Russ APRN Active PREDNISONE 20 MG ORAL TABLET 1 tablet daily for airway inflammat ion PREDNISONE 34653081797 No Longer Active Brii Russ APRN A ctive CEFDINIR 300 MG ORAL CAPSULE 1 po BID x 10 days CEFDINIR 21700266775 No Longer Active Jono Gagnon DO Active FLONASE 50 MCG/ACT NASAL SUSPENSION 1 spray each nostr il twice daily for allergies and runny nose until gone FLUT ICASONE PROPIONATE 04291836758 No Longer Active Jono Gagnon DO Active ALPRAZOLAM 0.25 MG ORAL TABLET 1 tablet by mouth every 8 hours as needed for stress ALPRAZOLAM 52916562721 No Longer Active Jono Gagnon DO Active ZITHROMAX Z-EMIL 250 MG ORAL TABLET 2 today, then 1 daily for 4 d ays AZITHROMYCIN 95563243676 No Longer Active Arie Casper MD Active PREDNISONE 20 MG ORAL TABLET 2 tabs daily for 3 days, 1 tab daily for 3 days, 1/2 tab daily for 2 days PREDNISONE 67358786790 No Longer Active Brii Russ APRN Active PREDNISONE 20 MG ORAL TABLET 1 tablet twice daily for 2 days, then 1 tablet once daily for 2 days PREDNISONE 37974464171 No Longer Active Brii Russ APRN Active PROMETHAZINE HCL 12.5 MG ORAL TABLET 1 tablet by mouth every 6 hours as needed for nausea/vomiting PROMETHAZINE HCL 73330858792 No L onger Active Jono Gagnon DO Active CITRATE OF MAGNESIA ORAL SOLUTION 1 bottle today for constipatio n MAGNESIUM CITRATE 73769380761 No Longer Active Jono Gagnon DO Active ZOFRAN 4 MG ORAL TABLET 1 TAB PO Q 6 HRS PRN NAUSEA 07/10/15 ONDANSETRON HCL 90776642657 No Longer Active Brii Russ APRN Acti ve LOMOTIL 2.5-0.025 MG ORAL TABLET 1 to 2 four times a day as needed for diarrhea DIPHENOXYLATE-ATROPINE 86699882351 No Longer Active January Russ APRN Active AMOXICILLIN 500 MG ORAL TABLET 2 tabs twice a day for 10 days 07/09/11 AMOXICILLIN 74961281137 No Longer Active Brii Russ APRN Active CYCLOBENZAPRINE HCL 10 MG ORAL TABLET 1/2 - 1 tablet b y mouth three times daily as needed for muscle spasm/pain CYCLOBENZAPRINE HCL 94466237659 No Longer Active Arie Casper MD Active LOMOTIL 2.5-0.025 MG ORAL TABLET 1 to 2 four times a day as needed for diarrhea DIPHENOXYLATE-ATROPINE 45376185891 No Longer Active Fozia Casper MD Active MACROBID 100 MG ORAL CAPSULE 1 cap by mouth twice daily NITROFURANTOIN MONOHYD MACRO 46187944956 No Longer Active Arie Casper MD Active ZYRTEC ALLERGY 10 MG ORAL CAPSULE 1 po qd CE TIRIZINE HCL 39027956266 No Longer Active Arie Casper MD Active AZITHROMYCIN 250 MG ORAL TABLET 2 po qd x 1 day, then 1 po q d x 4 days AZITHROMYCIN 84034498453 No Longer Active Jessica salgado APRN Active PREDNISONE 20 MG ORAL TABLET 2 tabs daily for 3 days, 1 tab daily for 3 days, 1/2 tab daily for 2 days PREDNISONE 25584866757 No Longer Active Jessica Heaton APRN Active PROMETHAZINE HCL 25 MG ORAL TABLET 1 four times a day as nee ded for vomiting PROMETHAZINE HCL 10617272197 No Longer Active Myrna Roberto MD Active BACTRIM DS 800-160 MG ORAL TABLET 1 twice a day 05/30 SULFAMETHOXAZOLE-TRIMETHOPRIM 58038594155 No Longer Active Myrna Roberto MD Active VICKS DAYQUIL SEVERE COLD/FLU TABLET 1 tab every 6 hours prn 201 02/22/17 [id number] TABS 49759472962 No Longer Active K fany Roberto MD Active GUAIFENESIN-CODEINE 100-10 MG/5ML ORAL SYRUP 2 tsp every 6 hours prn GUAIFENESIN-CODEINE 16948412403 No Longer Active Myrna Roberto MD Active NAPROXEN 500 MG ORAL TABLET one tab PO BID NAPR OXEN 57118121345 No Longer Active Myrna Roberto MD Active AUGMENTIN 875-125 MG ORAL TABLET 1 tab by mouth twice daily with food AMOXICILLIN-POT CLAVULANATE 91522262386 No Longer Act zaid Liliana Estrada MD PhD Active AMOXICILLIN 500 MG ORAL CAPSULE 1 tab by mouth 3 times daily 201 02/21/05 AMOXICILLIN 99968470328 No Longer Active Liliana Estrada MD PhD Active TESSALON PERLES 100 MG ORAL CAPSULE 1 tablet by mouth 3 times da cory BENZONATATE 72503179655 No Longer Active Liliana Estrada MD PhD Active FLAGYL 500 MG ORAL TABLET 1 tablet by mouth two times daily 2014 METRONIDAZOLE 24605065042 No Longer Active Nilam Raida Ac tive ZITHROMAX 250 MG ORAL TABLET 2 po today, then 1 po q days 2-5 20 06/08/16 AZITHROMYCIN 13797709907 No Longer Active Arie Casper MD Active VITAMINS 0.8 MG ORAL TABLET take 1 tab po qday [id number] 67495985928 No Longer Active Arei Casper MD Active IBUPROFEN 800 MG ORAL TABLET take one po Q 8 hours 201 02/01/16 IBUPROFEN 78100226214 No Longer Active Arie Casper MD Acti ve [facility] TUSSIN COUGH/COLD CF 5-10-100 MG/5ML ORAL LIQUID 2 teasp oons every 4 hours [id number] 89312134860 No Longer Active Blaine Casper MD Active COMTREX COLD/COUGH DAY/NITE MS 5-2-10-325 MG ORAL 2 caps deja ry 4 hours [id number] 16440938970 No Longer Active Landon Casper MD Active CHLORASEPTIC MAX SORE THROAT 15-10 MG MOUTH/THROAT LOZENGE 1 every 2 hours prn BENZOCAINE-MENTHOL 11398475759 No Longer Active Arie Casper MD Active PREDNISONE 20 MG ORAL TABLET 2 tabs daily for 3 days, 1 tab daily for 3 days, 1/2 tab daily for 2 days PREDNISONE 91820973349 No Longer Active Jose Zhong MD Active AZITHROMYCIN 250 MG ORAL TABLET 2 po qd x 1 day, then 1 po q d x 4 days AZITHROMYCIN 91526996179 No Longer Active Jose Mcwilliams MD Active ZOFRAN ODT 4 MG ORAL TABLET DISINTEGRATING 1 po q6hr PRN Nausea ONDANSETRON 65504499338 No Longer Active Rich Rosales MD Active ZOFRAN 4 MG ORAL TABLET 1 tablet every 4 hours ONDANSETRON HCL 28179891616 No Longer Active Rich Rosales MD Activ e MUCINEX 600 MG ORAL TABLET EXTENDED RELEASE 12 HOUR Ta ke 1-2 tablets every 12 hours GUAIFENESIN 38739856382 No Longer Active Rich Rosales MD Active BACTRIM 400-80 MG ORAL TABLET take one po BID SULFAMETHOXAZOLE-TRIMETHOPRIM 46245513470 No Longer Active Abelardo HERNANDEZ Active AZITHROMYCIN 500 MG ORAL TABLET 1 PO q day x 6 days 03/02/23 AZITHROMYCIN 63214392251 No Longer Active Tin HERNANDEZ Activ e ZITHROMAX 250 MG ORAL TABLET 2 po today, then 1 po q days 2-5 20 10/03/08 AZITHROMYCIN 30095336413 No Longer Active Arie Casper MD Active ZITHROMAX 250 MG ORAL TABLET 2 po today, then 1 po q days 2-5 20 09/23/25 AZITHROMYCIN 30316591059 No Longer Active Arie Casper MD Active AMOXICILLIN 500 MG ORAL CAPSULE 1 tab by mouth 3 times daily 201 11/24/09 AMOXICILLIN 97008124527 No Longer Active Arie Casper MD Active BACTRIM DS 800-160 MG ORAL TABLET 1 tab by mouth twice daily 201 11/03/14 TRIMETHOPRIM-SULFAMETHOXAZOLE 11873767020 No Longer Active Fozia Casper MD Active AMOXICILLIN 500 MG ORAL TABLET take 1 tab po TID 08/05 AMOXICILLIN 56738721326 No Longer Active Arie Casper MD Acti ve BACTRIM DS 800-160 MG ORAL TABLET 1 tab by mouth twice daily 201 11/03/14 BACTRIM DS 800-160 MG ORAL TABLET 117529 TRIMETHOPRIM-SULFAMETHOXAZOLE Inactive MUCINEX 600 MG ORAL TABLET EXTENDED RELEASE 12 HOUR Ta ke 1-2 tablets every 12 hours MUCINEX 600 MG ORAL TABLET EXTENDED RELEA SE 12 HOUR GUAIFENESIN Inactive ZOFRAN 4 MG ORAL TABLET 1 tablet every 4 hours ZOFRAN 4 MG ORAL TABLET 251589 ONDANSETRON HCL Inactive ZOFRAN ODT 4 MG ORAL TABLET DISINTEGRATING 1 po q6hr PRN Nausea ZOFRAN ODT 4 MG ORAL TABLET DISINTEGRATING 594955 ONDAN SETRON Inactive CHLORASEPTIC MAX SORE THROAT 15-10 MG MOUTH/THROAT LOZENGE 1 every 2 hours prn CHLORASEPTIC MAX SORE THROAT 15-10 MG MOUTH/THROAT LOZENGE BENZOCAINE-MENTHOL Inactive COMTREX COLD/COUGH DAY/NITE MS 5-2-10-325 MG ORAL 2 caps deja ry 4 hours COMTREX COLD/COUGH DAY/NITE MS 5-2-10-325 MG ORA L [id number] Inactive [facility] TUSSIN COUGH/COLD CF 5-10-100 MG/5ML ORAL LIQUID 2 teasp oons every 4 hours [facility] TUSSIN COUGH/COLD CF 5-10-100 MG/5ML ORAL LI QUID [id number] Inactive IBUPROFEN 800 MG ORAL TABLET take one po Q 8 hours 201 02/01/16 IBUPROFEN 800 MG ORAL TABLET 402386 IBUPROFEN Inactive VITAMINS 0.8 MG ORAL TABLET take 1 tab po qday VITAMINS 0.8 MG ORAL TABLET [id number] E-FA Inactive TESSALON PERLES 100 MG ORAL CAPSULE 1 tablet by mouth 3 times da cory TESSALON PERLES 100 MG ORAL CAPSULE 737497 BENZONATATE Inactive AMOXICILLIN 500 MG ORAL CAPSULE 1 tab by mouth 3 times daily 201 02/21/05 AMOXICILLIN 500 MG ORAL CAPSULE 611808 AMOXICILLIN Inactive GUAIFENESIN-CODEINE 100-10 MG/5ML ORAL SYRUP 2 tsp every 6 hours prn GUAIFENESIN-CODEINE 100-10 MG/5ML ORAL SYRUP 283553 GUAIFENESIN-CODEINE Inactive VICKS DAYQUIL SEVERE COLD/FLU TABLET 1 tab every 6 hours prn 201 02/22/17 VICKS DAYQUIL SEVERE COLD/FLU TABLET PHENYLEPHRI [id number] TABS Inactive BACTRIM DS 800-160 MG ORAL TABLET 1 twice a day 05/30 BACTRIM DS 800-160 MG ORAL TABLET 245925 SULFAMETHOXAZOLE-TRIMETHOPRIM Inactiv e PROMETHAZINE HCL 25 MG ORAL TABLET 1 four times a day as nee ded for vomiting PROMETHAZINE HCL 25 MG ORAL TABLET 617208 PROMETHAZINE HCL Inactive ZYRTEC ALLERGY 10 MG ORAL CAPSULE 1 po qd ZYRTEC ALLERGY 10 MG ORAL CAPSULE CETIRIZINE HCL Inactive MACROBID 100 MG ORAL CAPSULE 1 cap by mouth twice daily MACROBID 100 MG ORAL CAPSULE 8921196 NITROFURANTOIN MONOHYD MACRO In active LOMOTIL 2.5-0.025 MG ORAL TABLET 1 to 2 four times a day as needed for diarrhea LOMOTIL 2.5-0.025 MG ORAL TABLET 8050713 DIPHENOXYLATE-ATROPINE Inactive CYCLOBENZAPRINE HCL 10 MG ORAL TABLET 1/2 - 1 tablet b y mouth three times daily as needed for muscle spasm/pain CYCLOBEN ZAPRINE HCL 10 MG ORAL TABLET 454649 CYCLOBENZAPRINE HCL Inactive AMOXICILLIN 500 MG ORAL TABLET 2 tabs twice a day for 10 days 07/09/11 AMOXICILLIN 500 MG ORAL TABLET 725770 AMOXICILLIN I nactive LOMOTIL 2.5-0.025 MG ORAL TABLET 1 to 2 four times a day as needed for diarrhea LOMOTIL 2.5-0.025 MG ORAL TABLET 0908062 DIPHENOXYLATE-ATROPINE Inactive ZOFRAN 4 MG ORAL TABLET 1 TAB PO Q 6 HRS PRN NAUSEA 07/10/15 ZOFRAN 4 MG ORAL TABLET 895263 ONDANSETRON HCL Inactive CITRATE OF MAGNESIA ORAL SOLUTION 1 bottle today for constipatio n CITRATE OF MAGNESIA ORAL SOLUTION 5818285 MAGNESIUM CITR ATE Inactive PROMETHAZINE HCL 12.5 MG ORAL TABLET 1 tablet by mouth every 6 hours as needed for nausea/vomiting PROMETHAZINE HCL 12.5 MG ORA L TABLET 017825 PROMETHAZINE HCL Inactive PREDNISONE 20 MG ORAL TABLET 1 tablet twice daily for 2 days, then 1 tablet once daily for 2 days PREDNISONE 20 MG ORAL TABLET 288363 PREDNISONE Inactive ALPRAZOLAM 0.25 MG ORAL TABLET 1 tablet by mouth every 8 hours as needed for stress ALPRAZOLAM 0.25 MG ORAL TABLET 719907 ALPRA ZOLAM Inactive FLONASE 50 MCG/ACT NASAL SUSPENSION 1 spray each nostr il twice daily for allergies and runny nose until gone FLON ASE 50 MCG/ACT NASAL SUSPENSION 5693989 FLUTICASONE PROPIONATE Inactive PREDNISONE 20 MG ORAL TABLET 1 tablet daily for airway inflammat ion PREDNISONE 20 MG ORAL TABLET 500412 PREDNISONE Arlen ctive NAPROXEN 500 MG ORAL TABLET Take 1 tab BID NAPROXEN 500 MG ORAL TABLET 123048 NAPROXEN Inactive ZOLOFT 50 MG ORAL TABLET 1 tablet by mouth daily 12/08 ZOLOFT 50 MG ORAL TABLET 560885 SERTRALINE HCL Inactive LOMOTIL 2.5-0.025 MG ORAL TABLET 1 tab po four times a day as needed for diarrhea LOMOTIL 2.5-0.025 MG ORAL TABLET 1488216 DIPHENOXYLATE-ATROPINE Inactive CETIRIZINE HCL 10 MG ORAL TABLET 1 po qd PRN Allergies CETIRIZINE HCL 10 MG ORAL TABLET 3870253 CETIRIZINE HCL Inactiv e TUSSIONEX PENNKINETIC ER 10-8 MG/5ML ORAL SUSPENSION E XTENDED RELEASE 5ml po q12hr PRN Cough TUSSIONEX PENNKINETI C ER 10-8 MG/5ML ORAL SUSPENSION EXTENDED RELEASE HYDROCOD POLST-CHLORPHEN POLST I nactive NEXPLANON IMPLANT right arm subcutaneously NEXPLANON IMPLANT ETONOGESTREL IMPL Inactive PROTONIX 40 MG ORAL TABLET DELAYED RELEASE 1 po q a.m. PROTONIX 40 MG ORAL TABLET DELAYED RELEASE 515566 PANTOPRAZOLE SODI UM Inactive CHERATUSSIN AC 100-10 MG/5ML ORAL SYRUP 1 tsp by mouth every 4 hours as needed for cough CHERATUSSIN AC 100-10 MG/5ML ORAL SYRUP 9 76494 GUAIFENESIN-CODEINE Inactive GUAIFENESIN DM 400-20 MG ORAL TABLET 1 pill by mouth t wice daily, if needed for cough GUAIFENESIN DM 400-20 MG ORAL TABLET 1140 254 DEXTROMETHORPHAN-GUAIFENESIN Inactive TUSSIONEX PENNKINETIC ER 10-8 MG/5ML ORAL SUSPENSION E XTENDED RELEASE 5ml po q12hr PRN Cough TUSSIONEX PENNKINETI C ER 10-8 MG/5ML ORAL SUSPENSION EXTENDED RELEASE HYDROCOD POLST-CHLORPHEN POLST I nactive AMOXICILLIN 500 MG ORAL TABLET take 1 tab po TID 08/05 AMOXICILLIN 500 MG ORAL TABLET 668983 AMOXICILLIN Inactive AMOXICILLIN 500 MG ORAL CAPSULE 1 tab by mouth 3 times daily 201 11/24/09 AMOXICILLIN 500 MG ORAL CAPSULE 747428 AMOXICILLIN Inactive ZITHROMAX 250 MG ORAL TABLET 2 po today, then 1 po q days 2-5 20 09/23/25 ZITHROMAX 250 MG ORAL TABLET 787476 AZITHROMYCIN Arlen ctive ZITHROMAX 250 MG ORAL TABLET 2 po today, then 1 po q days 2-5 20 10/03/08 ZITHROMAX 250 MG ORAL TABLET 822399 AZITHROMYCIN Damon ctive AZITHROMYCIN 500 MG ORAL TABLET 1 PO q day x 6 days 20 03/02/23 AZITHROMYCIN 500 MG ORAL TABLET 6496598 AZITHROMYCIN Inactive BACTRIM 400-80 MG ORAL TABLET take one po BID BACTRIM 400- 80 MG ORAL TABLET 502935 SULFAMETHOXAZOLE-TRIMETHOPRIM Inactive AZITHROMYCIN 250 MG ORAL TABLET 2 po qd x 1 day, then 1 po q d x 4 days AZITHROMYCIN 250 MG ORAL TABLET 030772 AZITHROMY ALLISON Inactive PREDNISONE 20 MG ORAL TABLET 2 tabs daily for 3 days, 1 tab daily for 3 days, 1/2 tab daily for 2 days PREDNISONE 20 MG ORAL T ABLET 469951 PREDNISONE Inactive ZITHROMAX 250 MG ORAL TABLET 2 po today, then 1 po q days 2-5 20 06/08/16 ZITHROMAX 250 MG ORAL TABLET 719866 AZITHROMYCIN Damon ctive FLAGYL 500 MG ORAL TABLET 1 tablet by mouth two times daily 2014 FLAGYL 500 MG ORAL TABLET 544453 METRONIDAZOLE Inacti ve AUGMENTIN 875-125 MG ORAL TABLET 1 tab by mouth twice daily with food AUGMENTIN 875-125 MG ORAL TABLET 477504 AMOXICIL ELSA-POT CLAVULANATE Inactive NAPROXEN 500 MG ORAL TABLET one tab PO BID NAPROXEN 500 MG ORAL TABLET 321952 NAPROXEN Inactive PREDNISONE 20 MG ORAL TABLET 2 tabs daily for 3 days, 1 tab daily for 3 days, 1/2 tab daily for 2 days PREDNISONE 20 MG ORAL T ABLET 472598 PREDNISONE Inactive AZITHROMYCIN 250 MG ORAL TABLET 2 po qd x 1 day, then 1 po q d x 4 days AZITHROMYCIN 250 MG ORAL TABLET 919069 AZITHROMY ALLISON Inactive PREDNISONE 20 MG ORAL TABLET 2 tabs daily for 3 days, 1 tab daily for 3 days, 1/2 tab daily for 2 days PREDNISONE 20 MG ORAL T ABLET 774283 PREDNISONE Inactive ZITHROMAX Z-EMIL 250 MG ORAL TABLET 2 today, then 1 daily for 4 d ays ZITHROMAX Z-EMIL 250 MG ORAL TABLET 721785 AZITHROMYCIN Inactive CEFDINIR 300 MG ORAL CAPSULE 1 po BID x 10 days 12/18 CEFDINIR 300 MG ORAL CAPSULE 802489 CEFDINIR Inactive CEFDINIR 300 MG ORAL CAPSULE 1 po BID x 10 days CEFDINIR 300 MG ORAL CAPSULE 494960 CEFDINIR Inactive PREDNISONE 20 MG ORAL TABLET 2 tabs daily for 3 days, 1 tab daily for 3 days, 1/2 tab daily for 2 days PREDNISONE 20 MG ORAL T ABLET 843602 PREDNISONE Inactive BACTRIM DS 800-160 MG ORAL TABLET 1 tab by mouth twice daily 201 05/02/30 BACTRIM DS 800-160 MG ORAL TABLET 365240 TRIMETHOPRIM-SULFAMETHOXAZOLE Inactive ZITHROMAX Z-EMIL 250 MG ORAL TABLET 2 today, then 1 daily for 4 d ays ZITHROMAX Z-EMIL 250 MG ORAL TABLET 096150 AZITHROMYCIN Inactive TAMIFLU 75 MG ORAL CAPSULE 1 po BID x 5 days 0 TAMIFLU 75 MG ORAL CAPSULE 536915 OSELTAMIVIR PHOSPHATE Inactive CEFDINIR 300 MG ORAL CAPSULE 1 po BID x 10 days 01/03 CEFDINIR 300 MG ORAL CAPSULE 149865 CEFDINIR Inactive ZITHROMAX Z-EMIL 250 MG TABS Take two tablets today and then 1 tablet daily for 4 days ZITHROMAX Z-EMIL 250 MG TABS 004034 AZITHROM YCIN Inactive AMOXICILLIN 875 MG ORAL TABLET 1 tab by mouth twice daily AMOXICILLIN 875 MG ORAL TABLET 520879 AMOXICILLIN Inactive Advance Directives Directive Description Start [...] Description blood pressure, diastolic 75 mm[Hg] BP kenndey blood pressure, systolic 128 mm[Hg] BP sys [...] Negative Encounters Code Encounter Date Provider Facility CPT-16611 [id number] Vst-Est Level III 09:41:31 CDT Arie Casper MD [facility] CPT-02579 [id number] Vst-Est Level III 18:20:11 CDT Me lobito Russ APRN [facility] CPT-92302 [id number] Vst-Est Level III 17:21:41 CDT Me lobito Russ [facility] [place] CPT-05928 [id number] Vst-Est Level IV 13:30:22 C NIC Casper MD [facility] CPT-86510 Level 4 Est. Patient 13:05:26 CDT Myrna Real Bernabe maldonado MD [facility]-98559 [id number] Vst-Est Level IV 20:50:21 C DT Arie Casper MD [facility] CPT-82356 Level 3 Est. Patient 11:49:34 NURSE PRACTITIONER PER DIEM Jessica boyd [facility]-82515 Level 3 Est. Patient 14:55:50 NURSE PRACTITIONER PER DIEM Jose Zhong MD [facility] CPT-63087 Level 3 Est. Patient 10:21:41 NURSE PRACTITIONER PER DIEM Arie mcqueen MD [facility] CPT-49776 Level 3 Est. Patient 11:35:15 NURSE PRACTITIONER PER DIEM Arie mcqueen MD [facility] CPT-15494 Level 3 Est. Patient 15:40:28 CDT Brii Are [facility] CPT-64896 Level 3 Est. Patient 16:40:36 CDT Arie mcqueen MD [facility]-68657 Level 4 Est. Patient 15:29:22 NURSE PRACTITIONER PER DIEM Arie mcqueen MD [facility] CPT-21573 Level 3 Est. Patient 15:18:16 NURSE PRACTITIONER PER DIEM Jono black DO [facility] CPT-45856 Level 4 Est. Patient 12:08:40 NURSE PRACTITIONER PER DIEM Brii Are [facility] CPT-23402 Level 3 Est. Patient 09:24:42 CDT Brii Are [facility] CPT-55661 Level 3 Est. Patient 09:12:56 CDT Arie mcqueen MD [facility] CPT-34168 Level 3 Est. Patient 16:40:54 CDT Jose Zhong MD [facility] CPT-04594 Level 2 Est. Patient 13:01:13 CDT Brii Yepez ll [facility] [place] CPT-44498 Level 3 Est. Patient 11:55:30 NURSE PRACTITIONER PER DIEM Jono black DO [facility] CPT-36316 Level 3 Est. Patient 09:52:36 NURSE PRACTITIONER PER DIEM Brii Yepez ll [facility] CPT-64218 Level 3 Est. Patient 16:25:33 NURSE PRACTITIONER PER DIEM Rich Rosales MD [facility] CPT-44643 Level 3 Est. Patient 20:33:55 CDT Arie mcqueen MD [facility] CPT-30965 Level 3 Est. Patient 14:18:20 CDT Rich Rosales MD [facility] CPT-91232 Level 4 Est. Patient 09:34:31 CDT Arie mcqueen MD [facility] CPT-87422 Level 3 Est. Patient 09:08:55 NURSE PRACTITIONER PER DIEM Liliana vincent MD PhD [facility]-66153 Level 3 Est. Patient 16:44:07 NURSE PRACTITIONER PER DIEM Arie mcqueen MD [facility] CPT-50245 Level 3 Est. Patient 10:44:27 CDT Arie mcqueen MD [facility] CPT-81215 Level 3 Est. Patient 08:55:41 CDT Jose Zhong MD [facility] CPT-95612 Level 3 Est. Patient 18:37:31 CDT Liliana vincent MD PhD [facility]-00089 Level 3 Est. Patient 14:28:23 CDT Abelardo HERNANDEZ [facility] CPT-94604 Level 3 Est. Patient 15:18:13 NURSE PRACTITIONER PER DIEM Arie mcqueen MD [facility] CPT-27533 Level 3 Est. Patient 10:11:29 NURSE PRACTITIONER PER DIEM Arie mcqueen MD [facility] CPT-85082 Level 3 Est. Patient 10:55:57 NURSE PRACTITIONER PER DIEM Jono Cheema sofia DO [facility] CPT-64071 Level 3 Est. Patient 17:29:05 CDT Arie mcqueen MD [facility] Procedures Code Procedure Name Date Entry Date Standard Desc ription CPT-48134 Sono Soft Tissue Head and Neck - XRAY US E ONLY 17:10:14 CDT CPT-71329 Ear Wash with irrigation 17:21:41 CDT 07/04 CPT-77269 Nexplanon Removal 15:40:28 CDT CPT-88895 Sono transvag pelvis non OB uterus ovari es cervix - XRAY USE ONLY 08:58:14 NURSE PRACTITIONER PER DIEM CPT-95082 UA w micro - LAB USE ONLY 16:04:56 NURSE PRACTITIONER PER DIEM 2015 CPT-99695 Wet Prep/GEN - LAB USE ONLY 16:04:56 NURSE PRACTITIONER PER DIEM 20 08/10/29 CPT-28133 First Vx - Ix admin via ID I M or jet injects without counseling by physician 16:57:10 CDT CPT-65274 Fluzone Preservative Free Intramuscular Suspension 16:57:10 CDT CPT-J0696 Rocephin 1000 mg (Ceftriaxone) 11:49:23 CDT CPT-J1040 Depo Medrol 80 mg (Methyl Prednisolone A cetate) 11:49:23 CDT CPT-J1100 Decadron 8mg (Dexamethasone) 11:49:23 CDT 2 CPT-53768 Abx/Therapy Injection 11:49:23 CDT CPT-67966 Abx/Therapy Injection 11:49:23 CDT CPT-07656 Abd compl w upright 09:07:26 NURSE PRACTITIONER PER DIEM CPT-36877 Ear Wash 16:12:47 NURSE PRACTITIONER PER DIEM CPT-OV Office Visit 11:12:01 CDT CPT-OV Office Visit 15:30:23 CDT CPT-09334 Sono pelvis non OB uterus ovaries cervix 15:50:44 CDT CPT-22517 Hand comp min 3V 16:42:32 CDT CPT-81624 Abd compl w upright 12:17:01 CDT CPT-41142 Nexplanon Placement 15:07:39 NURSE PRACTITIONER PER DIEM CPT-65010 Removal of IUD 15:07:39 NURSE PRACTITIONER PER DIEM CPT-75991 TB Tubersol 12:09:32 CDT CPT-49620 TB Tubersol 13:55:43 CDT
--- OUTSIDE RECORDS SUMMARY | 2020-03-03 07:50 | XMS REPORT | Clinical Summary ---
[...] Roberto MD Constipation, unspecified Bronchitis 490 Active Jesisca Heaton APRN Bronchitis, not specified as acute [...] with depression 300.4 Active Brii Ramirez l [employer] Dysthymic disorder URI 465.9 Active Jono Gagnon [...] lymph node 785.6 Active Brii Are ll [employer] Enlargement of lymph nodes Influenza Vaccination for [...] MG ORAL CAPSULE 1 po tid CEPHALEXIN 288421 24924 Active Brii Russ APRN Active PROTONIX 40 MG ORAL TABLET DELAYED RELEASE 1 pill by m outh daily, for acid reflux PANTOPRAZOLE SODIUM 32525728898 Active Roseann Crawford Active AMOXICILLIN 875 MG ORAL TABLET 1 tab by mouth twice daily 1 AMOXICILLIN 35570873459 No Longer Active Brii Russ APRN Active ALPRAZOLAM 0.25 MG ORAL TABLET 1 tablet by mouth twice a day as needed for stress/anxiety ALPRAZOLAM 64960674386 Active KELLIE Escobar Active ESCITALOPRAM OXALATE 10 MG ORAL TABLET take 1 tab po qhs for mod 20 10/04/18 ESCITALOPRAM OXALATE 83908106880 Active Arie Casper MD Active TUSSIONEX PENNKINETIC ER 10-8 MG/5ML ORAL SUSPENSION E XTENDED RELEASE 5ml po q12hr PRN Cough HYDROCOD POLST-CHLORPHEN POLST 5 6002003193 No Longer Active Myrna Roberto MD Active ZITHROMAX Z-EMIL 250 MG TABS Take two tablets today and then 1 tablet daily for 4 days AZITHROMYCIN 32303986708 No Longer Active Flaco Rosales MD Active GUAIFENESIN DM 400-20 MG ORAL TABLET 1 pill by mouth t wice daily, if needed for cough DEXTROMETHORPHAN-GUAIFENESIN 61185679158 No Longer Active Rich Rosales MD Active CEFDINIR 300 MG ORAL CAPSULE 1 po BID x 10 days CEFDINIR 45535384086 No Longer Active Jillina Frazell [employer] Active CHERATUSSIN AC 100-10 MG/5ML ORAL SYRUP 1 tsp by mouth every 4 hours as needed for cough GUAIFENESIN-CODEINE 95909475695 No Longe r Active Jessica Faithnaomi [employer] Active TAMIFLU 75 MG ORAL CAPSULE 1 po BID x 5 days 0 OSELTAMIVIR PHOSPHATE 24293936300 No Longer Active Jose Zhong MD Activ e ZITHROMAX Z-EMIL 250 MG ORAL TABLET 2 today, then 1 daily for 4 d ays AZITHROMYCIN 31427203652 No Longer Active Arie Casper MD Active PROTONIX 40 MG ORAL TABLET DELAYED RELEASE 1 po q a.m. PANTOPRAZOLE SODIUM 41529740741 No Longer Active Arie Casper MD Active BACTRIM DS 800-160 MG ORAL TABLET 1 tab by mouth twice daily 201 05/02/30 TRIMETHOPRIM-SULFAMETHOXAZOLE 56403799456 No Longer Active R [facility] Active NEXPLANON IMPLANT right arm subcutaneously ETONOGESTREL IMPL 62627946355 No Longer Active Brii Arell [employer]ER Active TUSSIONEX PENNKINETIC ER 10-8 MG/5ML ORAL SUSPENSION E XTENDED RELEASE 5ml po q12hr PRN Cough HYDROCOD POLST-CHLORPHEN POLST 5 6334400347 No Longer Active Brii Arell [employer] Active CETIRIZINE HCL 10 MG ORAL TABLET 1 po qd PRN Allergies CETIRIZINE HCL 75831590933 No Longer Active Brii Arell [employer] Activ e PREDNISONE 20 MG ORAL TABLET 2 tabs daily for 3 days, 1 tab daily for 3 days, 1/2 tab daily for 2 days PREDNISONE 13985254904 No Longer Active Arie Casper MD Active LOMOTIL 2.5-0.025 MG ORAL TABLET 1 tab po four times a day as needed for diarrhea DIPHENOXYLATE-ATROPINE 60489551084 No Lo nger Active Arie Casper MD Active ZOLOFT 50 MG ORAL TABLET 1 tablet by mouth daily 12/08 SERTRALINE HCL 60614526217 No Longer Active Arie Casper MD Ac tive NAPROXEN 500 MG ORAL TABLET Take 1 tab BID NAPR OXEN 17590802103 No Longer Active Arie Casper MD Active CEFDINIR 300 MG ORAL CAPSULE 1 po BID x 10 days CEFDINIR 59625614755 No Longer Active Brii Russ APRN Active PREDNISONE 20 MG ORAL TABLET 1 tablet daily for airway inflammat ion PREDNISONE 88465428253 No Longer Active Brii Russ APRN A ctive CEFDINIR 300 MG ORAL CAPSULE 1 po BID x 10 days CEFDINIR 85350616357 No Longer Active Jono Gagnon DO Active FLONASE 50 MCG/ACT NASAL SUSPENSION 1 spray each nostr il twice daily for allergies and runny nose until gone FLUT ICASONE PROPIONATE 90318098313 No Longer Active Jono Gagnon DO Active ALPRAZOLAM 0.25 MG ORAL TABLET 1 tablet by mouth every 8 hours as needed for stress ALPRAZOLAM 11069693385 No Longer Active Jono Gagnon DO Active ZITHROMAX Z-EMIL 250 MG ORAL TABLET 2 today, then 1 daily for 4 d ays AZITHROMYCIN 62930417299 No Longer Active Arie Casper MD Active PREDNISONE 20 MG ORAL TABLET 2 tabs daily for 3 days, 1 tab daily for 3 days, 1/2 tab daily for 2 days PREDNISONE 52098018728 No Longer Active Brii Russ APRN Active PREDNISONE 20 MG ORAL TABLET 1 tablet twice daily for 2 days, then 1 tablet once daily for 2 days PREDNISONE 27535752065 No Longer Active Brii Russ APRN Active PROMETHAZINE HCL 12.5 MG ORAL TABLET 1 tablet by mouth every 6 hours as needed for nausea/vomiting PROMETHAZINE HCL 70951030831 No L onger Active Jono Gagnon DO Active CITRATE OF MAGNESIA ORAL SOLUTION 1 bottle today for constipatio n MAGNESIUM CITRATE 06457017990 No Longer Active Jono Gagnon DO Active ZOFRAN 4 MG ORAL TABLET 1 TAB PO Q 6 HRS PRN NAUSEA 07/10/15 ONDANSETRON HCL 30019308155 No Longer Active Brii Russ APRN Acti ve LOMOTIL 2.5-0.025 MG ORAL TABLET 1 to 2 four times a day as needed for diarrhea DIPHENOXYLATE-ATROPINE 45488653219 No Longer Active January Russ APRN Active AMOXICILLIN 500 MG ORAL TABLET 2 tabs twice a day for 10 days 07/09/11 AMOXICILLIN 70655604178 No Longer Active Brii Russ APRN Active CYCLOBENZAPRINE HCL 10 MG ORAL TABLET 1/2 - 1 tablet b y mouth three times daily as needed for muscle spasm/pain CYCLOBENZAPRINE HCL 25534772685 No Longer Active Arie Casper MD Active LOMOTIL 2.5-0.025 MG ORAL TABLET 1 to 2 four times a day as needed for diarrhea DIPHENOXYLATE-ATROPINE 08006400378 No Longer Active Fozia Casper MD Active MACROBID 100 MG ORAL CAPSULE 1 cap by mouth twice daily NITROFURANTOIN MONOHYD MACRO 42135194286 No Longer Active Arie Casper MD Active ZYRTEC ALLERGY 10 MG ORAL CAPSULE 1 po qd CE TIRIZINE HCL 58279835960 No Longer Active Arie Casper MD Active AZITHROMYCIN 250 MG ORAL TABLET 2 po qd x 1 day, then 1 po q d x 4 days AZITHROMYCIN 84776272322 No Longer Active Jessica salgado APRN Active PREDNISONE 20 MG ORAL TABLET 2 tabs daily for 3 days, 1 tab daily for 3 days, 1/2 tab daily for 2 days PREDNISONE 48132118827 No Longer Active Jessica Heaton APRN Active PROMETHAZINE HCL 25 MG ORAL TABLET 1 four times a day as nee ded for vomiting PROMETHAZINE HCL 80240971901 No Longer Active Myrna Roberto MD Active BACTRIM DS 800-160 MG ORAL TABLET 1 twice a day 05/30 SULFAMETHOXAZOLE-TRIMETHOPRIM 94199379601 No Longer Active Myrna Roberto MD Active VICKS DAYQUIL SEVERE COLD/FLU TABLET 1 tab every 6 hours prn 201 02/22/17 [id number] TABS 53813654869 No Longer Active Chris Roberto MD Active GUAIFENESIN-CODEINE 100-10 MG/5ML ORAL SYRUP 2 tsp every 6 hours prn GUAIFENESIN-CODEINE 46381467101 No Longer Active Myrna Roberto MD Active NAPROXEN 500 MG ORAL TABLET one tab PO BID NAPR OXEN 49771442150 No Longer Active Myrna Roberto MD Active AUGMENTIN 875-125 MG ORAL TABLET 1 tab by mouth twice daily with food AMOXICILLIN-POT CLAVULANATE 25669080103 No Longer Act zaid Liliana Estrada MD PhD Active AMOXICILLIN 500 MG ORAL CAPSULE 1 tab by mouth 3 times daily 201 02/21/05 AMOXICILLIN 51810016103 No Longer Active Liliana Estrada MD PhD Active TESSALON PERLES 100 MG ORAL CAPSULE 1 tablet by mouth 3 times da cory BENZONATATE 47752509437 No Longer Active Liliana Estrada MD PhD Active FLAGYL 500 MG ORAL TABLET 1 tablet by mouth two times daily 2014 METRONIDAZOLE 71790852875 No Longer Active Nilam Raida Ac tive ZITHROMAX 250 MG ORAL TABLET 2 po today, then 1 po q days 2-5 20 06/08/16 AZITHROMYCIN 12989408857 No Longer Active Arie Casper MD Active VITAMINS 0.8 MG ORAL TABLET take 1 tab po qday [id number] 02253981533 No Longer Active Arie Casper MD Active IBUPROFEN 800 MG ORAL TABLET take one po Q 8 hours 201 02/01/16 IBUPROFEN 40068234929 No Longer Active Arie Casper MD Acti ve [facility] TUSSIN COUGH/COLD CF 5-10-100 MG/5ML ORAL LIQUID 2 teasp oons every 4 hours [id number] 80610685471 No Longer Active Blaine Casper MD Active COMTREX COLD/COUGH DAY/NITE MS 5-2-10-325 MG ORAL 2 caps deja ry 4 hours [id number] 22912017941 No Longer Active Landon Casper MD Active CHLORASEPTIC MAX SORE THROAT 15-10 MG MOUTH/THROAT LOZENGE 1 every 2 hours prn BENZOCAINE-MENTHOL 74269841536 No Longer Active Arie Casper MD Active PREDNISONE 20 MG ORAL TABLET 2 tabs daily for 3 days, 1 tab daily for 3 days, 1/2 tab daily for 2 days PREDNISONE 67255162830 No Longer Active Jose Zhong MD Active AZITHROMYCIN 250 MG ORAL TABLET 2 po qd x 1 day, then 1 po q d x 4 days AZITHROMYCIN 14640676415 No Longer Active Jose Mcwilliams MD Active ZOFRAN ODT 4 MG ORAL TABLET DISINTEGRATING 1 po q6hr PRN Nausea ONDANSETRON 22016993699 No Longer Active Rich Rosales MD Active ZOFRAN 4 MG ORAL TABLET 1 tablet every 4 hours ONDANSETRON HCL 51805776845 No Longer Active Rich Rosales MD Activ e MUCINEX 600 MG ORAL TABLET EXTENDED RELEASE 12 HOUR Ta ke 1-2 tablets every 12 hours GUAIFENESIN 48626186658 No Longer Active Rich Rosales MD Active BACTRIM 400-80 MG ORAL TABLET take one po BID SULFAMETHOXAZOLE-TRIMETHOPRIM 20624447760 No Longer Active Abelardo HERNANDEZ Active AZITHROMYCIN 500 MG ORAL TABLET 1 PO q day x 6 days 03/02/23 AZITHROMYCIN 29202310216 No Longer Active Tin HERNANDEZ Activ e ZITHROMAX 250 MG ORAL TABLET 2 po today, then 1 po q days 2-5 20 10/03/08 AZITHROMYCIN 26710919222 No Longer Active Arie Casper MD Active ZITHROMAX 250 MG ORAL TABLET 2 po today, then 1 po q days 2-5 20 09/23/25 AZITHROMYCIN 73079291257 No Longer Active Arie Casper MD Active AMOXICILLIN 500 MG ORAL CAPSULE 1 tab by mouth 3 times daily 201 11/24/09 AMOXICILLIN 93507138299 No Longer Active Arie Casper MD Active BACTRIM DS 800-160 MG ORAL TABLET 1 tab by mouth twice daily 201 11/03/14 TRIMETHOPRIM-SULFAMETHOXAZOLE 57103483758 No Longer Active Fozia Casper MD Active AMOXICILLIN 500 MG ORAL TABLET take 1 tab po TID 08/05 AMOXICILLIN 69009201775 No Longer Active Arie Casper MD Acti ve BACTRIM DS 800-160 MG ORAL TABLET 1 tab by mouth twice daily 201 11/03/14 BACTRIM DS 800-160 MG ORAL TABLET 636715 TRIMETHOPRIM-SULFAMETHOXAZOLE Inactive MUCINEX 600 MG ORAL TABLET EXTENDED RELEASE 12 HOUR Ta ke 1-2 tablets every 12 hours MUCINEX 600 MG ORAL TABLET EXTENDED RELEA SE 12 HOUR GUAIFENESIN Inactive ZOFRAN 4 MG ORAL TABLET 1 tablet every 4 hours ZOFRAN 4 MG ORAL TABLET 490709 ONDANSETRON HCL Inactive ZOFRAN ODT 4 MG ORAL TABLET DISINTEGRATING 1 po q6hr PRN Nausea ZOFRAN ODT 4 MG ORAL TABLET DISINTEGRATING 529320 ONDAN SETRON Inactive CHLORASEPTIC MAX SORE THROAT 15-10 MG MOUTH/THROAT LOZENGE 1 every 2 hours prn CHLORASEPTIC MAX SORE THROAT 15-10 MG MOUTH/THROAT LOZENGE BENZOCAINE-MENTHOL Inactive COMTREX COLD/COUGH DAY/NITE MS 5-2-10-325 MG ORAL 2 caps deja ry 4 hours COMTREX COLD/COUGH DAY/NITE MS 5-2-10-325 MG ORA L [id number] Inactive [facility] TUSSIN COUGH/COLD CF 5-10-100 MG/5ML ORAL LIQUID 2 teasp oons every 4 hours [facility] TUSSIN COUGH/COLD CF 5-10-100 MG/5ML ORAL LI QUID [id number] Inactive IBUPROFEN 800 MG ORAL TABLET take one po Q 8 hours 201 02/01/16 IBUPROFEN 800 MG ORAL TABLET 344681 IBUPROFEN Inactive VITAMINS 0.8 MG ORAL TABLET take 1 tab po qday VITAMINS 0.8 MG ORAL TABLET [id number] E-FA Inactive TESSALON PERLES 100 MG ORAL CAPSULE 1 tablet by mouth 3 times da cory TESSALON PERLES 100 MG ORAL CAPSULE 468306 BENZONATATE Inactive AMOXICILLIN 500 MG ORAL CAPSULE 1 tab by mouth 3 times daily 201 02/21/05 AMOXICILLIN 500 MG ORAL CAPSULE 989070 AMOXICILLIN Inactive GUAIFENESIN-CODEINE 100-10 MG/5ML ORAL SYRUP 2 tsp every 6 hours prn GUAIFENESIN-CODEINE 100-10 MG/5ML ORAL SYRUP 072945 GUAIFENESIN-CODEINE Inactive VICKS DAYQUIL SEVERE COLD/FLU TABLET 1 tab every 6 hours prn 201 02/22/17 VICKS DAYQUIL SEVERE COLD/FLU TABLET PHENYLEPHRI [id number]-APAP TABS Inactive BACTRIM DS 800-160 MG ORAL TABLET 1 twice a day 05/30 BACTRIM DS 800-160 MG ORAL TABLET 508780 SULFAMETHOXAZOLE-TRIMETHOPRIM Inactiv e PROMETHAZINE HCL 25 MG ORAL TABLET 1 four times a day as nee ded for vomiting PROMETHAZINE HCL 25 MG ORAL TABLET 632744 PROMETHAZINE HCL Inactive ZYRTEC ALLERGY 10 MG ORAL CAPSULE 1 po qd ZYRTEC ALLERGY 10 MG ORAL CAPSULE CETIRIZINE HCL Inactive MACROBID 100 MG ORAL CAPSULE 1 cap by mouth twice daily MACROBID 100 MG ORAL CAPSULE 1578619 NITROFURANTOIN MONOHYD MACRO In active LOMOTIL 2.5-0.025 MG ORAL TABLET 1 to 2 four times a day as needed for diarrhea LOMOTIL 2.5-0.025 MG ORAL TABLET 3153237 DIPHENOXYLATE-ATROPINE Inactive CYCLOBENZAPRINE HCL 10 MG ORAL TABLET 1/2 - 1 tablet b y mouth three times daily as needed for muscle spasm/pain CYCLOBEN ZAPRINE HCL 10 MG ORAL TABLET 435066 CYCLOBENZAPRINE HCL Inactive AMOXICILLIN 500 MG ORAL TABLET 2 tabs twice a day for 10 days 07/09/11 AMOXICILLIN 500 MG ORAL TABLET 693109 AMOXICILLIN I nactive LOMOTIL 2.5-0.025 MG ORAL TABLET 1 to 2 four times a day as needed for diarrhea LOMOTIL 2.5-0.025 MG ORAL TABLET 3173539 DIPHENOXYLATE-ATROPINE Inactive ZOFRAN 4 MG ORAL TABLET 1 TAB PO Q 6 HRS PRN NAUSEA 07/10/15 ZOFRAN 4 MG ORAL TABLET 536890 ONDANSETRON HCL Inactive CITRATE OF MAGNESIA ORAL SOLUTION 1 bottle today for constipatio n CITRATE OF MAGNESIA ORAL SOLUTION 5674850 MAGNESIUM CITR ATE Inactive PROMETHAZINE HCL 12.5 MG ORAL TABLET 1 tablet by mouth every 6 hours as needed for nausea/vomiting PROMETHAZINE HCL 12.5 MG ORA L TABLET 115190 PROMETHAZINE HCL Inactive PREDNISONE 20 MG ORAL TABLET 1 tablet twice daily for 2 days, then 1 tablet once daily for 2 days PREDNISONE 20 MG ORAL TABLET 408771 PREDNISONE Inactive ALPRAZOLAM 0.25 MG ORAL TABLET 1 tablet by mouth every 8 hours as needed for stress ALPRAZOLAM 0.25 MG ORAL TABLET 008236 ALPRA ZOLAM Inactive FLONASE 50 MCG/ACT NASAL SUSPENSION 1 spray each nostr il twice daily for allergies and runny nose until gone FLON ASE 50 MCG/ACT NASAL SUSPENSION 4528892 FLUTICASONE PROPIONATE Inactive PREDNISONE 20 MG ORAL TABLET 1 tablet daily for airway inflammat ion PREDNISONE 20 MG ORAL TABLET 537374 PREDNISONE Arlen ctive NAPROXEN 500 MG ORAL TABLET Take 1 tab BID NAPROXEN 500 MG ORAL TABLET 046571 NAPROXEN Inactive ZOLOFT 50 MG ORAL TABLET 1 tablet by mouth daily 12/08 ZOLOFT 50 MG ORAL TABLET 374321 SERTRALINE HCL Inactive LOMOTIL 2.5-0.025 MG ORAL TABLET 1 tab po four times a day as needed for diarrhea LOMOTIL 2.5-0.025 MG ORAL TABLET 1582767 DIPHENOXYLATE-ATROPINE Inactive CETIRIZINE HCL 10 MG ORAL TABLET 1 po qd PRN Allergies CETIRIZINE HCL 10 MG ORAL TABLET 7337309 CETIRIZINE HCL Inactiv e TUSSIONEX PENNKINETIC ER 10-8 MG/5ML ORAL SUSPENSION E XTENDED RELEASE 5ml po q12hr PRN Cough TUSSIONEX PENNKINETI C ER 10-8 MG/5ML ORAL SUSPENSION EXTENDED RELEASE HYDROCOD POLST-CHLORPHEN POLST I nactive NEXPLANON IMPLANT right arm subcutaneously NEXPLANON IMPLANT ETONOGESTREL IMPL Inactive PROTONIX 40 MG ORAL TABLET DELAYED RELEASE 1 po q a.m. PROTONIX 40 MG ORAL TABLET DELAYED RELEASE 783577 PANTOPRAZOLE SODI UM Inactive CHERATUSSIN AC 100-10 MG/5ML ORAL SYRUP 1 tsp by mouth every 4 hours as needed for cough CHERATUSSIN AC 100-10 MG/5ML ORAL SYRUP 9 76754 GUAIFENESIN-CODEINE Inactive GUAIFENESIN DM 400-20 MG ORAL TABLET 1 pill by mouth t wice daily, if needed for cough GUAIFENESIN DM 400-20 MG ORAL TABLET 1141 505 DEXTROMETHORPHAN-GUAIFENESIN Inactive TUSSIONEX PENNKINETIC ER 10-8 MG/5ML ORAL SUSPENSION E XTENDED RELEASE 5ml po q12hr PRN Cough TUSSIONEX PENNKINETI C ER 10-8 MG/5ML ORAL SUSPENSION EXTENDED RELEASE HYDROCOD POLST-CHLORPHEN POLST I nactive AMOXICILLIN 500 MG ORAL TABLET take 1 tab po TID 08/05 AMOXICILLIN 500 MG ORAL TABLET 846220 AMOXICILLIN Inactive AMOXICILLIN 500 MG ORAL CAPSULE 1 tab by mouth 3 times daily 201 11/24/09 AMOXICILLIN 500 MG ORAL CAPSULE 525430 AMOXICILLIN Inactive ZITHROMAX 250 MG ORAL TABLET 2 po today, then 1 po q days 2-5 20 09/23/25 ZITHROMAX 250 MG ORAL TABLET 213428 AZITHROMYCIN Arlen ctive ZITHROMAX 250 MG ORAL TABLET 2 po today, then 1 po q days 2-5 20 10/03/08 ZITHROMAX 250 MG ORAL TABLET 702751 AZITHROMYCIN Arlen ctive AZITHROMYCIN 500 MG ORAL TABLET 1 PO q day x 6 days 03/02/23 AZITHROMYCIN 500 MG ORAL TABLET 2636373 AZITHROMYCIN Inactive BACTRIM 400-80 MG ORAL TABLET take one po BID BACTRIM 400- 80 MG ORAL TABLET 440734 SULFAMETHOXAZOLE-TRIMETHOPRIM Inactive AZITHROMYCIN 250 MG ORAL TABLET 2 po qd x 1 day, then 1 po q d x 4 days AZITHROMYCIN 250 MG ORAL TABLET 511118 AZITHROMY ALLISON Inactive PREDNISONE 20 MG ORAL TABLET 2 tabs daily for 3 days, 1 tab daily for 3 days, 1/2 tab daily for 2 days PREDNISONE 20 MG ORAL T ABLET 854736 PREDNISONE Inactive ZITHROMAX 250 MG ORAL TABLET 2 po today, then 1 po q days 2-5 20 06/08/16 ZITHROMAX 250 MG ORAL TABLET 041330 AZITHROMYCIN Rosman ctive FLAGYL 500 MG ORAL TABLET 1 tablet by mouth two times daily 2014 FLAGYL 500 MG ORAL TABLET 155706 METRONIDAZOLE Inacti ve AUGMENTIN 875-125 MG ORAL TABLET 1 tab by mouth twice daily with food AUGMENTIN 875-125 MG ORAL TABLET 409416 AMOXICIL ELSA-POT CLAVULANATE Inactive NAPROXEN 500 MG ORAL TABLET one tab PO BID NAPROXEN 500 MG ORAL TABLET 141495 NAPROXEN Inactive PREDNISONE 20 MG ORAL TABLET 2 tabs daily for 3 days, 1 tab daily for 3 days, 1/2 tab daily for 2 days PREDNISONE 20 MG ORAL T ABLET 851103 PREDNISONE Inactive AZITHROMYCIN 250 MG ORAL TABLET 2 po qd x 1 day, then 1 po q d x 4 days AZITHROMYCIN 250 MG ORAL TABLET 365880 AZITHROMY ALLISON Inactive PREDNISONE 20 MG ORAL TABLET 2 tabs daily for 3 days, 1 tab daily for 3 days, 1/2 tab daily for 2 days PREDNISONE 20 MG ORAL T ABLET 554774 PREDNISONE Inactive ZITHROMAX Z-EMIL 250 MG ORAL TABLET 2 today, then 1 daily for 4 d ays ZITHROMAX Z-EMIL 250 MG ORAL TABLET 132475 AZITHROMYCIN Inactive CEFDINIR 300 MG ORAL CAPSULE 1 po BID x 10 days 12/18 CEFDINIR 300 MG ORAL CAPSULE 799126 CEFDINIR Inactive CEFDINIR 300 MG ORAL CAPSULE 1 po BID x 10 days CEFDINIR 300 MG ORAL CAPSULE 797752 CEFDINIR Inactive PREDNISONE 20 MG ORAL TABLET 2 tabs daily for 3 days, 1 tab daily for 3 days, 1/2 tab daily for 2 days PREDNISONE 20 MG ORAL T ABLET 939050 PREDNISONE Inactive BACTRIM DS 800-160 MG ORAL TABLET 1 tab by mouth twice daily 201 05/02/30 BACTRIM DS 800-160 MG ORAL TABLET 427435 TRIMETHOPRIM-SULFAMETHOXAZOLE Inactive ZITHROMAX Z-EMIL 250 MG ORAL TABLET 2 today, then 1 daily for 4 d ays ZITHROMAX Z-EMIL 250 MG ORAL TABLET 470572 AZITHROMYCIN Inactive TAMIFLU 75 MG ORAL CAPSULE 1 po BID x 5 days 0 TAMIFLU 75 MG ORAL CAPSULE 669248 OSELTAMIVIR PHOSPHATE Inactive CEFDINIR 300 MG ORAL CAPSULE 1 po BID x 10 days 01/03 CEFDINIR 300 MG ORAL CAPSULE 205602 CEFDINIR Inactive ZITHROMAX Z-EMIL 250 MG TABS Take two tablets today and then 1 tablet daily for 4 days ZITHROMAX Z-EMIL 250 MG TABS 604296 AZITHROM YCIN Inactive AMOXICILLIN 875 MG ORAL TABLET 1 tab by mouth twice daily AMOXICILLIN 875 MG ORAL TABLET 140154 AMOXICILLIN Inactive Advance Directives Directive Description Start [...] Negative Encounters Code Encounter Date Provider Facility CPT-73500 [id number] Vst-Est Level III 09:41:31 CDT Arie Casper MD [facility] CPT-04016 [id number] Vst-Est Level III 18:20:11 CDT Me lobito Russ APRN [facility] CPT-26544 [id number] Vst-Est Level III 17:21:41 CDT Me lobito Russ [facility] [place] [facility] CPT-75447 [id number] Vst-Est Level IV 13:30:22 C DT Arie Casper MD [facility] CPT-28544 Level 4 Est. Patient 13:05:26 CDT Myrna Real Bernabe maldonado MD [facility]-52009 [id number] Vst-Est Level IV 20:50:21 C DT Arie Casper MD [facility] CPT-73593 Level 3 Est. Patient 11:49:34 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CAMPUS RECREATION Jessica boyd [facility] [place] CPT-65452 Level 3 Est. Patient 14:55:50 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CAMPUS RECREATION Jose Zhong MD [facility] CPT-04887 Level 3 Est. Patient 10:21:41 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CAMPUS RECREATION Arie mcqueen MD [facility] CPT-07367 Level 3 Est. Patient 11:35:15 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CAMPUS RECREATION Arie mcqueen MD [facility] CPT-67537 Level 3 Est. Patient 15:40:28 CDT Brii Are [facility] CPT-97238 Level 3 Est. Patient 16:40:36 CDT Arie mcqueen MD [facility] CPT-16435 Level 4 Est. Patient 15:29:22 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CAMPUS RECREATION Arie mcqueen MD [facility] CPT-37587 Level 3 Est. Patient 15:18:16 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CAMPUS RECREATION Jono black DO [facility] CPT-88659 Level 4 Est. Patient 12:08:40 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CAMPUS RECREATION Brii Are [facility] CPT-59239 Level 3 Est. Patient 09:24:42 CDT Brii Are [facility] CPT-75020 Level 3 Est. Patient 09:12:56 CDT Arie mcqueen MD [facility] CPT-20382 Level 3 Est. Patient 16:40:54 CDT Jose Zhong MD [facility] CPT-69606 Level 2 Est. Patient 13:01:13 CDT Brii Yepez ll [facility] [place] [facility] CPT-55065 Level 3 Est. Patient 11:55:30 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CAMPUS RECREATION Jono black DO [facility] CPT-06449 Level 3 Est. Patient 09:52:36 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CAMPUS RECREATION Brii Yepez ll [facility] CPT-91756 Level 3 Est. Patient 16:25:33 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CAMPUS RECREATION Rich Rosales MD [facility]-38594 Level 3 Est. Patient 20:33:55 CDT Arie mcqueen MD [facility] CPT-74203 Level 3 Est. Patient 14:18:20 CDT Rich Rosales MD [facility] CPT-22629 Level 4 Est. Patient 09:34:31 CDT Arie mcqueen MD [facility] CPT-95582 Level 3 Est. Patient 09:08:55 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CAMPUS RECREATION Liliana vincent MD PhD [facility]-16106 Level 3 Est. Patient 16:44:07 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CAMPUS RECREATION Arie mcqueen MD [facility] CPT-88676 Level 3 Est. Patient 10:44:27 CDT Arie mcqueen MD [facility] CPT-80921 Level 3 Est. Patient 08:55:41 CDT Jose Zhong MD [facility] CPT-50580 Level 3 Est. Patient 18:37:31 CDT Liliana vincent MD PhD [facility]-34849 Level 3 Est. Patient 14:28:23 CDT Abelardo HERNANDEZ [facility] CPT-51988 Level 3 Est. Patient 15:18:13 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CAMPUS RECREATION Arie mcqueen MD [facility] CPT-29881 Level 3 Est. Patient 10:11:29 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CAMPUS RECREATION Arie mcqueen MD [facility] CPT-19522 Level 3 Est. Patient 10:55:57 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CAMPUS RECREATION Jono Sarika Eliot sofia DO [facility] CPT-72484 Level 3 Est. Patient 17:29:05 CDT Arie mcqueen MD [facility] Procedures Code Procedure Name Date Entry Date Standard Desc ription CPT-66726 Sono Soft Tissue Head and Neck - XRAY US E ONLY 17:10:14 CDT CPT-29193 Ear Wash with irrigation 17:21:41 CDT 07/04 CPT-36528 Nexplanon Removal 15:40:28 CDT CPT-89818 Sono transvag pelvis non OB uterus ovari es cervix - XRAY USE ONLY 08:58:14 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CAMPUS RECREATION CPT-68029 UA w micro - LAB USE ONLY 16:04:56 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CAMPUS RECREATION 2015 CPT-41012 Wet Prep/GEN - LAB USE ONLY 16:04:56 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CAMPUS RECREATION 20 08/10/29 CPT-85328 First Vx - Ix admin via ID I M or jet injects without counseling by physician 16:57:10 CDT CPT-85245 Fluzone Preservative Free Intramuscular Suspension 16:57:10 CDT CPT-J0696 Rocephin 1000 mg (Ceftriaxone) 11:49:23 CDT CPT-J1040 Depo Medrol 80 mg (Methyl Prednisolone A cetate) 11:49:23 CDT CPT-J1100 Decadron 8mg (Dexamethasone) 11:49:23 CDT 2 CPT-62055 Abx/Therapy Injection 11:49:23 CDT CPT-57208 Abx/Therapy Injection 11:49:23 CDT CPT-68273 Abd compl w upright 09:07:26 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CAMPUS RECREATION CPT-12180 Ear Wash 16:12:47 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CAMPUS RECREATION CPT-OV Office Visit 11:12:01 CDT CPT-OV Office Visit 15:30:23 CDT CPT-62351 Sono pelvis non OB uterus ovaries cervix 15:50:44 CDT CPT-60811 Hand comp min 3V 16:42:32 CDT CPT-15820 Abd compl w upright 12:17:01 CDT CPT-32142 Nexplanon Placement 15:07:39 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CAMPUS RECREATION CPT-85251 Removal of IUD 15:07:39 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CAMPUS RECREATION CPT-76956 TB Tubersol 12:09:32 CDT CPT-98601 TB Tubersol 13:55:43 CDT
--- OUTSIDE RECORDS SUMMARY | 2020-03-03 07:50 | XMS REPORT | Clinical Summary ---
Author Author Admin, Diamatne Marcelo Organization [employer] Address Unknown Phone Unavailable Allergies, Adverse Reactions, [...] respiratory manifestations Sinusitis 473.9 Active Jessica Heaton [employer] Unspecified sinusitis (chronic) Other mixed anxiety 300.00 [...] Cerumen impaction, bilateral 380.4 Active Brii Russ [employer] Impacted cerumen Tonsillar enlargement 474.11 Active Brii Russ APRN Hypertrophy of tonsils alone Influenza Vaccination for Prophylaxis V04.81 Inactive Brii Russ [employer] Need for prophylactic vaccin ation and inoculation against influenza Submandibular lymph node 785.6 Active Brii Are ll [employer] Enlargement of lymph nodes Influenza Vaccination for [...] MG ORAL CAPSULE 1 po tid CEPHALEXIN 289142 20576 Active Brii Russ APRN Active PROTONIX 40 MG ORAL TABLET DELAYED RELEASE 1 pill by m outh daily, for acid reflux PANTOPRAZOLE SODIUM 42629666195 Active Roseann Crawford Active AMOXICILLIN 875 MG ORAL TABLET 1 tab by mouth twice daily 1 AMOXICILLIN 38258191429 No Longer Active Brii Russ APRN Active ALPRAZOLAM 0.25 MG ORAL TABLET 1 tablet by mouth twice a day as needed for stress/anxiety ALPRAZOLAM 27829213366 Active KELLIE Escobar Active ESCITALOPRAM OXALATE 10 MG ORAL TABLET take 1 tab po qhs for mod 20 10/04/18 ESCITALOPRAM OXALATE 42581368922 Active Arie Casper MD Active TUSSIONEX PENNKINETIC ER 10-8 MG/5ML ORAL SUSPENSION E XTENDED RELEASE 5ml po q12hr PRN Cough HYDROCOD POLST-CHLORPHEN POLST 5 2635295021 No Longer Active Myrna Roberto MD Active ZITHROMAX Z-EMIL 250 MG TABS Take two tablets today and then 1 tablet daily for 4 days AZITHROMYCIN 92351168599 No Longer Active Falco Rosales MD Active GUAIFENESIN DM 400-20 MG ORAL TABLET 1 pill by mouth t wice daily, if needed for cough DEXTROMETHORPHAN-GUAIFENESIN 49870293836 No Longer Active Rich Rosales MD Active CEFDINIR 300 MG ORAL CAPSULE 1 po BID x 10 days CEFDINIR 11726184009 No Longer Active Jessica Heaton APRN Active CHERATUSSIN AC 100-10 MG/5ML ORAL SYRUP 1 tsp by mouth every 4 hours as needed for cough GUAIFENESIN-CODEINE 20598442963 No Longe r Active Jessica Heaton APRN Active TAMIFLU 75 MG ORAL CAPSULE 1 po BID x 5 days 0 OSELTAMIVIR PHOSPHATE 79344732669 No Longer Active Jose Zhong MD Activ e ZITHROMAX Z-EMIL 250 MG ORAL TABLET 2 today, then 1 daily for 4 d ays AZITHROMYCIN 84248670415 No Longer Active Arie Casper MD Active PROTONIX 40 MG ORAL TABLET DELAYED RELEASE 1 po q a.m. PANTOPRAZOLE SODIUM 25408347525 No Longer Active Arie Casper MD Active BACTRIM DS 800-160 MG ORAL TABLET 1 tab by mouth twice daily 201 05/02/30 TRIMETHOPRIM-SULFAMETHOXAZOLE 64191767674 No Longer Active R ncalberto Crawford Active NEXPLANON IMPLANT right arm subcutaneously ETONOGESTREL IMPL 48129496088 No Longer Active Brii Areboris [employer] Active TUSSIONEX PENNKINETIC ER 10-8 MG/5ML ORAL SUSPENSION E XTENDED RELEASE 5ml po q12hr PRN Cough HYDROCOD POLST-CHLORPHEN POLST 5 9752470667 No Longer Active Brii Arell [employer] Active CETIRIZINE HCL 10 MG ORAL TABLET 1 po qd PRN Allergies CETIRIZINE HCL 86625938274 No Longer Active Brii Arell [employer] Activ e PREDNISONE 20 MG ORAL TABLET 2 tabs daily for 3 days, 1 tab daily for 3 days, 1/2 tab daily for 2 days PREDNISONE 95279789146 No Longer Active Arie Casper MD Active LOMOTIL 2.5-0.025 MG ORAL TABLET 1 tab po four times a day as needed for diarrhea DIPHENOXYLATE-ATROPINE 46135329083 No Lo nger Active Arie Casper MD Active ZOLOFT 50 MG ORAL TABLET 1 tablet by mouth daily 12/08 SERTRALINE HCL 62888047904 No Longer Active Arie Casper MD Ac tive NAPROXEN 500 MG ORAL TABLET Take 1 tab BID NAPR OXEN 83451800893 No Longer Active Arie Casper MD Active CEFDINIR 300 MG ORAL CAPSULE 1 po BID x 10 days CEFDINIR 80075472639 No Longer Active Brii Russ APRN Active PREDNISONE 20 MG ORAL TABLET 1 tablet daily for airway inflammat ion PREDNISONE 86109761644 No Longer Active Brii Russ APRN A ctive CEFDINIR 300 MG ORAL CAPSULE 1 po BID x 10 days CEFDINIR 04975353407 No Longer Active Jono Gagnon DO Active FLONASE 50 MCG/ACT NASAL SUSPENSION 1 spray each nostr il twice daily for allergies and runny nose until gone FLUT ICASONE PROPIONATE 76161343599 No Longer Active Jono Gagnon DO Active ALPRAZOLAM 0.25 MG ORAL TABLET 1 tablet by mouth every 8 hours as needed for stress ALPRAZOLAM 28314260292 No Longer Active Jono Gagnon DO Active ZITHROMAX Z-EMIL 250 MG ORAL TABLET 2 today, then 1 daily for 4 d ays AZITHROMYCIN 89234885432 No Longer Active Arie Casper MD Active PREDNISONE 20 MG ORAL TABLET 2 tabs daily for 3 days, 1 tab daily for 3 days, 1/2 tab daily for 2 days PREDNISONE 26201103125 No Longer Active Brii Russ APRN Active PREDNISONE 20 MG ORAL TABLET 1 tablet twice daily for 2 days, then 1 tablet once daily for 2 days PREDNISONE 04107625308 No Longer Active Brii Russ APRN Active PROMETHAZINE HCL 12.5 MG ORAL TABLET 1 tablet by mouth every 6 hours as needed for nausea/vomiting PROMETHAZINE HCL 78591423497 No L onger Active Jono Gagnon DO Active CITRATE OF MAGNESIA ORAL SOLUTION 1 bottle today for constipatio n MAGNESIUM CITRATE 85862279849 No Longer Active Jono Gagnon DO Active ZOFRAN 4 MG ORAL TABLET 1 TAB PO Q 6 HRS PRN NAUSEA 07/10/15 ONDANSETRON HCL 54606190345 No Longer Active Brii Russ APRN Acti ve LOMOTIL 2.5-0.025 MG ORAL TABLET 1 to 2 four times a day as needed for diarrhea DIPHENOXYLATE-ATROPINE 80884246180 No Longer Active January Russ APRN Active AMOXICILLIN 500 MG ORAL TABLET 2 tabs twice a day for 10 days 07/09/11 AMOXICILLIN 23138062695 No Longer Active Brii Russ APRN Active CYCLOBENZAPRINE HCL 10 MG ORAL TABLET 1/2 - 1 tablet b y mouth three times daily as needed for muscle spasm/pain CYCLOBENZAPRINE HCL 32268041458 No Longer Active Arie Casper MD Active LOMOTIL 2.5-0.025 MG ORAL TABLET 1 to 2 four times a day as needed for diarrhea DIPHENOXYLATE-ATROPINE 76174942382 No Longer Active Fozia Casper MD Active MACROBID 100 MG ORAL CAPSULE 1 cap by mouth twice daily NITROFURANTOIN MONOHYD MACRO 79922009300 No Longer Active Arie Casper MD Active ZYRTEC ALLERGY 10 MG ORAL CAPSULE 1 po qd CE TIRIZINE HCL 30839999904 No Longer Active Arie Casper MD Active AZITHROMYCIN 250 MG ORAL TABLET 2 po qd x 1 day, then 1 po q d x 4 days AZITHROMYCIN 73712053766 No Longer Active Jessica salgado APRN Active PREDNISONE 20 MG ORAL TABLET 2 tabs daily for 3 days, 1 tab daily for 3 days, 1/2 tab daily for 2 days PREDNISONE 61048018960 No Longer Active Jessica Heaton APRN Active PROMETHAZINE HCL 25 MG ORAL TABLET 1 four times a day as nee ded for vomiting PROMETHAZINE HCL 02534439845 No Longer Active Myrna Roberto MD Active BACTRIM DS 800-160 MG ORAL TABLET 1 twice a day 05/30 SULFAMETHOXAZOLE-TRIMETHOPRIM 32720396540 No Longer Active Myrna Roberto MD Active VICKS DAYQUIL SEVERE COLD/FLU TABLET 1 tab every 6 hours prn 201 02/22/17 [id number] TABS 40382217139 No Longer Active K fany Roberto MD Active GUAIFENESIN-CODEINE 100-10 MG/5ML ORAL SYRUP 2 tsp every 6 hours prn GUAIFENESIN-CODEINE 77589756896 No Longer Active Myrna Roberto MD Active NAPROXEN 500 MG ORAL TABLET one tab PO BID NAPR OXEN 01477834488 No Longer Active Myrna Roberto MD Active AUGMENTIN 875-125 MG ORAL TABLET 1 tab by mouth twice daily with food AMOXICILLIN-POT CLAVULANATE 42979274210 No Longer Act zaid Liliana Estrada MD PhD Active AMOXICILLIN 500 MG ORAL CAPSULE 1 tab by mouth 3 times daily 201 02/21/05 AMOXICILLIN 12788804504 No Longer Active Liliana Estrada MD PhD Active TESSALON PERLES 100 MG ORAL CAPSULE 1 tablet by mouth 3 times da cory BENZONATATE 44003057312 No Longer Active Liliana Estrada MD PhD Active FLAGYL 500 MG ORAL TABLET 1 tablet by mouth two times daily 2014 METRONIDAZOLE 03144931380 No Longer Active Nilam Raida Ac tive ZITHROMAX 250 MG ORAL TABLET 2 po today, then 1 po q days 2-5 20 06/08/16 AZITHROMYCIN 23466405253 No Longer Active Arie Casper MD Active VITAMINS 0.8 MG ORAL TABLET take 1 tab po qday [id number] 51995276446 No Longer Active Arie Casper MD Active IBUPROFEN 800 MG ORAL TABLET take one po Q 8 hours 201 02/01/16 IBUPROFEN 01661559939 No Longer Active Arie Casper MD Acti ve [facility] TUSSIN COUGH/COLD CF 5-10-100 MG/5ML ORAL LIQUID 2 teasp oons every 4 hours [id number] 17166141929 No Longer Active Blaine Casper MD Active COMTREX COLD/COUGH DAY/NITE MS 5-2-10-325 MG ORAL 2 caps deja ry 4 hours [id number] 68790850709 No Longer Active Landon Casper MD Active CHLORASEPTIC MAX SORE THROAT 15-10 MG MOUTH/THROAT LOZENGE 1 every 2 hours prn BENZOCAINE-MENTHOL 52149627356 No Longer Active Arie Casper MD Active PREDNISONE 20 MG ORAL TABLET 2 tabs daily for 3 days, 1 tab daily for 3 days, 1/2 tab daily for 2 days PREDNISONE 60159958515 No Longer Active Jose Zhong MD Active AZITHROMYCIN 250 MG ORAL TABLET 2 po qd x 1 day, then 1 po q d x 4 days AZITHROMYCIN 91914609468 No Longer Active Jose Mcwilliams MD Active ZOFRAN ODT 4 MG ORAL TABLET DISINTEGRATING 1 po q6hr PRN Nausea ONDANSETRON 14068491449 No Longer Active Rich Rosales MD Active ZOFRAN 4 MG ORAL TABLET 1 tablet every 4 hours ONDANSETRON HCL 94511919927 No Longer Active Rich Rosales MD Activ e MUCINEX 600 MG ORAL TABLET EXTENDED RELEASE 12 HOUR Ta ke 1-2 tablets every 12 hours GUAIFENESIN 82400075923 No Longer Active Rich Rosales MD Active BACTRIM 400-80 MG ORAL TABLET take one po BID SULFAMETHOXAZOLE-TRIMETHOPRIM 72531377365 No Longer Active Abelardo HERNANDEZ Active AZITHROMYCIN 500 MG ORAL TABLET 1 PO q day x 6 days 03/02/23 AZITHROMYCIN 70035423702 No Longer Active Tin HERNANDEZ Activ e ZITHROMAX 250 MG ORAL TABLET 2 po today, then 1 po q days 2-5 20 10/03/08 AZITHROMYCIN 83495089678 No Longer Active Arie Casper MD Active ZITHROMAX 250 MG ORAL TABLET 2 po today, then 1 po q days 2-5 20 09/23/25 AZITHROMYCIN 20535540097 No Longer Active Arie Casper MD Active AMOXICILLIN 500 MG ORAL CAPSULE 1 tab by mouth 3 times daily 201 11/24/09 AMOXICILLIN 28691714506 No Longer Active Arie Casper MD Active BACTRIM DS 800-160 MG ORAL TABLET 1 tab by mouth twice daily 201 11/03/14 TRIMETHOPRIM-SULFAMETHOXAZOLE 32684521577 No Longer Active Fozia Casper MD Active AMOXICILLIN 500 MG ORAL TABLET take 1 tab po TID 08/05 AMOXICILLIN 59674462108 No Longer Active Arie Casper MD Acti ve BACTRIM DS 800-160 MG ORAL TABLET 1 tab by mouth twice daily 201 11/03/14 BACTRIM DS 800-160 MG ORAL TABLET 946176 TRIMETHOPRIM-SULFAMETHOXAZOLE Inactive MUCINEX 600 MG ORAL TABLET EXTENDED RELEASE 12 HOUR Ta ke 1-2 tablets every 12 hours MUCINEX 600 MG ORAL TABLET EXTENDED RELEA SE 12 HOUR GUAIFENESIN Inactive ZOFRAN 4 MG ORAL TABLET 1 tablet every 4 hours ZOFRAN 4 MG ORAL TABLET 987640 ONDANSETRON HCL Inactive ZOFRAN ODT 4 MG ORAL TABLET DISINTEGRATING 1 po q6hr PRN Nausea ZOFRAN ODT 4 MG ORAL TABLET DISINTEGRATING 926924 ONDAN SETRON Inactive CHLORASEPTIC MAX SORE THROAT 15-10 MG MOUTH/THROAT LOZENGE 1 every 2 hours prn CHLORASEPTIC MAX SORE THROAT 15-10 MG MOUTH/THROAT LOZENGE BENZOCAINE-MENTHOL Inactive COMTREX COLD/COUGH DAY/NITE MS 5-2-10-325 MG ORAL 2 caps deja ry 4 hours COMTREX COLD/COUGH DAY/NITE MS 5-2-10-325 MG ORA L [id number] Inactive [facility] TUSSIN COUGH/COLD CF 5-10-100 MG/5ML ORAL LIQUID 2 teasp oons every 4 hours [facility] TUSSIN COUGH/COLD CF 5-10-100 MG/5ML ORAL LI QUID [id number] Inactive IBUPROFEN 800 MG ORAL TABLET take one po Q 8 hours 201 02/01/16 IBUPROFEN 800 MG ORAL TABLET 663328 IBUPROFEN Inactive VITAMINS 0.8 MG ORAL TABLET take 1 tab po qday VITAMINS 0.8 MG ORAL TABLET [id number] E-FA Inactive TESSALON PERLES 100 MG ORAL CAPSULE 1 tablet by mouth 3 times da cory TESSALON PERLES 100 MG ORAL CAPSULE 095149 BENZONATATE Inactive AMOXICILLIN 500 MG ORAL CAPSULE 1 tab by mouth 3 times daily 201 02/21/05 AMOXICILLIN 500 MG ORAL CAPSULE 335518 AMOXICILLIN Inactive GUAIFENESIN-CODEINE 100-10 MG/5ML ORAL SYRUP 2 tsp every 6 hours prn GUAIFENESIN-CODEINE 100-10 MG/5ML ORAL SYRUP 726695 GUAIFENESIN-CODEINE Inactive VICKS DAYQUIL SEVERE COLD/FLU TABLET 1 tab every 6 hours prn 201 02/22/17 VICKS DAYQUIL SEVERE COLD/FLU TABLET PHENYLEPHRI [id number]-APAP TABS Inactive BACTRIM DS 800-160 MG ORAL TABLET 1 twice a day 05/30 BACTRIM DS 800-160 MG ORAL TABLET 013498 SULFAMETHOXAZOLE-TRIMETHOPRIM Inactiv e PROMETHAZINE HCL 25 MG ORAL TABLET 1 four times a day as nee ded for vomiting PROMETHAZINE HCL 25 MG ORAL TABLET 730597 PROMETHAZINE HCL Inactive ZYRTEC ALLERGY 10 MG ORAL CAPSULE 1 po qd ZYRTEC ALLERGY 10 MG ORAL CAPSULE CETIRIZINE HCL Inactive MACROBID 100 MG ORAL CAPSULE 1 cap by mouth twice daily MACROBID 100 MG ORAL CAPSULE 6251105 NITROFURANTOIN MONOHYD MACRO In active LOMOTIL 2.5-0.025 MG ORAL TABLET 1 to 2 four times a day as needed for diarrhea LOMOTIL 2.5-0.025 MG ORAL TABLET 2054407 DIPHENOXYLATE-ATROPINE Inactive CYCLOBENZAPRINE HCL 10 MG ORAL TABLET 1/2 - 1 tablet b y mouth three times daily as needed for muscle spasm/pain CYCLOBEN ZAPRINE HCL 10 MG ORAL TABLET 767598 CYCLOBENZAPRINE HCL Inactive AMOXICILLIN 500 MG ORAL TABLET 2 tabs twice a day for 10 days 07/09/11 AMOXICILLIN 500 MG ORAL TABLET 537350 AMOXICILLIN I nactive LOMOTIL 2.5-0.025 MG ORAL TABLET 1 to 2 four times a day as needed for diarrhea LOMOTIL 2.5-0.025 MG ORAL TABLET 2313735 DIPHENOXYLATE-ATROPINE Inactive ZOFRAN 4 MG ORAL TABLET 1 TAB PO Q 6 HRS PRN NAUSEA 07/10/15 ZOFRAN 4 MG ORAL TABLET 783423 ONDANSETRON HCL Inactive CITRATE OF MAGNESIA ORAL SOLUTION 1 bottle today for constipatio n CITRATE OF MAGNESIA ORAL SOLUTION 7458745 MAGNESIUM CITR ATE Inactive PROMETHAZINE HCL 12.5 MG ORAL TABLET 1 tablet by mouth every 6 hours as needed for nausea/vomiting PROMETHAZINE HCL 12.5 MG ORA L TABLET 624237 PROMETHAZINE HCL Inactive PREDNISONE 20 MG ORAL TABLET 1 tablet twice daily for 2 days, then 1 tablet once daily for 2 days PREDNISONE 20 MG ORAL TABLET 788697 PREDNISONE Inactive ALPRAZOLAM 0.25 MG ORAL TABLET 1 tablet by mouth every 8 hours as needed for stress ALPRAZOLAM 0.25 MG ORAL TABLET 710039 ALPRA ZOLAM Inactive FLONASE 50 MCG/ACT NASAL SUSPENSION 1 spray each nostr il twice daily for allergies and runny nose until gone FLON ASE 50 MCG/ACT NASAL SUSPENSION 7804131 FLUTICASONE PROPIONATE Inactive PREDNISONE 20 MG ORAL TABLET 1 tablet daily for airway inflammat ion PREDNISONE 20 MG ORAL TABLET 984651 PREDNISONE Arlen ctive NAPROXEN 500 MG ORAL TABLET Take 1 tab BID NAPROXEN 500 MG ORAL TABLET 182305 NAPROXEN Inactive ZOLOFT 50 MG ORAL TABLET 1 tablet by mouth daily 12/08 ZOLOFT 50 MG ORAL TABLET 356087 SERTRALINE HCL Inactive LOMOTIL 2.5-0.025 MG ORAL TABLET 1 tab po four times a day as needed for diarrhea LOMOTIL 2.5-0.025 MG ORAL TABLET 4178837 DIPHENOXYLATE-ATROPINE Inactive CETIRIZINE HCL 10 MG ORAL TABLET 1 po qd PRN Allergies CETIRIZINE HCL 10 MG ORAL TABLET 2749312 CETIRIZINE HCL Inactiv e TUSSIONEX PENNKINETIC ER 10-8 MG/5ML ORAL SUSPENSION E XTENDED RELEASE 5ml po q12hr PRN Cough TUSSIONEX PENNKINETI C ER 10-8 MG/5ML ORAL SUSPENSION EXTENDED RELEASE HYDROCOD POLST-CHLORPHEN POLST I nactive NEXPLANON IMPLANT right arm subcutaneously NEXPLANON IMPLANT ETONOGESTREL IMPL Inactive PROTONIX 40 MG ORAL TABLET DELAYED RELEASE 1 po q a.m. PROTONIX 40 MG ORAL TABLET DELAYED RELEASE 752828 PANTOPRAZOLE SODI UM Inactive CHERATUSSIN AC 100-10 MG/5ML ORAL SYRUP 1 tsp by mouth every 4 hours as needed for cough CHERATUSSIN AC 100-10 MG/5ML ORAL SYRUP 9 40751 GUAIFENESIN-CODEINE Inactive GUAIFENESIN DM 400-20 MG ORAL TABLET 1 pill by mouth t wice daily, if needed for cough GUAIFENESIN DM 400-20 MG ORAL TABLET 1145 908 DEXTROMETHORPHAN-GUAIFENESIN Inactive TUSSIONEX PENNKINETIC ER 10-8 MG/5ML ORAL SUSPENSION E XTENDED RELEASE 5ml po q12hr PRN Cough TUSSIONEX PENNKINETI C ER 10-8 MG/5ML ORAL SUSPENSION EXTENDED RELEASE HYDROCOD POLST-CHLORPHEN POLST I nactive AMOXICILLIN 500 MG ORAL TABLET take 1 tab po TID 08/05 AMOXICILLIN 500 MG ORAL TABLET 205874 AMOXICILLIN Inactive AMOXICILLIN 500 MG ORAL CAPSULE 1 tab by mouth 3 times daily 201 11/24/09 AMOXICILLIN 500 MG ORAL CAPSULE 199386 AMOXICILLIN Inactive ZITHROMAX 250 MG ORAL TABLET 2 po today, then 1 po q days 2-5 20 09/23/25 ZITHROMAX 250 MG ORAL TABLET 790935 AZITHROMYCIN Arlen ctive ZITHROMAX 250 MG ORAL TABLET 2 po today, then 1 po q days 2-5 20 10/03/08 ZITHROMAX 250 MG ORAL TABLET 784117 AZITHROMYCIN Alborn ctive AZITHROMYCIN 500 MG ORAL TABLET 1 PO q day x 6 days 20 03/02/23 AZITHROMYCIN 500 MG ORAL TABLET 3608404 AZITHROMYCIN Inactive BACTRIM 400-80 MG ORAL TABLET take one po BID BACTRIM 400- 80 MG ORAL TABLET 095955 SULFAMETHOXAZOLE-TRIMETHOPRIM Inactive AZITHROMYCIN 250 MG ORAL TABLET 2 po qd x 1 day, then 1 po q d x 4 days AZITHROMYCIN 250 MG ORAL TABLET 746660 AZITHROMY ALLISON Inactive PREDNISONE 20 MG ORAL TABLET 2 tabs daily for 3 days, 1 tab daily for 3 days, 1/2 tab daily for 2 days PREDNISONE 20 MG ORAL T ABLET 495870 PREDNISONE Inactive ZITHROMAX 250 MG ORAL TABLET 2 po today, then 1 po q days 2-5 20 06/08/16 ZITHROMAX 250 MG ORAL TABLET 103350 AZITHROMYCIN Alborn ctive FLAGYL 500 MG ORAL TABLET 1 tablet by mouth two times daily 2014 FLAGYL 500 MG ORAL TABLET 621632 METRONIDAZOLE Inacti ve AUGMENTIN 875-125 MG ORAL TABLET 1 tab by mouth twice daily with food AUGMENTIN 875-125 MG ORAL TABLET 410576 AMOXICIL ELSA-POT CLAVULANATE Inactive NAPROXEN 500 MG ORAL TABLET one tab PO BID NAPROXEN 500 MG ORAL TABLET 477454 NAPROXEN Inactive PREDNISONE 20 MG ORAL TABLET 2 tabs daily for 3 days, 1 tab daily for 3 days, 1/2 tab daily for 2 days PREDNISONE 20 MG ORAL T ABLET 667148 PREDNISONE Inactive AZITHROMYCIN 250 MG ORAL TABLET 2 po qd x 1 day, then 1 po q d x 4 days AZITHROMYCIN 250 MG ORAL TABLET 055811 AZITHROMY ALLISON Inactive PREDNISONE 20 MG ORAL TABLET 2 tabs daily for 3 days, 1 tab daily for 3 days, 1/2 tab daily for 2 days PREDNISONE 20 MG ORAL T ABLET 677826 PREDNISONE Inactive ZITHROMAX Z-EMIL 250 MG ORAL TABLET 2 today, then 1 daily for 4 d ays ZITHROMAX Z-EMIL 250 MG ORAL TABLET 633920 AZITHROMYCIN Inactive CEFDINIR 300 MG ORAL CAPSULE 1 po BID x 10 days 12/18 CEFDINIR 300 MG ORAL CAPSULE 209357 CEFDINIR Inactive CEFDINIR 300 MG ORAL CAPSULE 1 po BID x 10 days CEFDINIR 300 MG ORAL CAPSULE 971256 CEFDINIR Inactive PREDNISONE 20 MG ORAL TABLET 2 tabs daily for 3 days, 1 tab daily for 3 days, 1/2 tab daily for 2 days PREDNISONE 20 MG ORAL T ABLET 099917 PREDNISONE Inactive BACTRIM DS 800-160 MG ORAL TABLET 1 tab by mouth twice daily 201 05/02/30 BACTRIM DS 800-160 MG ORAL TABLET 787183 TRIMETHOPRIM-SULFAMETHOXAZOLE Inactive ZITHROMAX Z-EMIL 250 MG ORAL TABLET 2 today, then 1 daily for 4 d ays ZITHROMAX Z-EMIL 250 MG ORAL TABLET 145239 AZITHROMYCIN Inactive TAMIFLU 75 MG ORAL CAPSULE 1 po BID x 5 days 0 TAMIFLU 75 MG ORAL CAPSULE 183695 OSELTAMIVIR PHOSPHATE Inactive CEFDINIR 300 MG ORAL CAPSULE 1 po BID x 10 days 01/03 CEFDINIR 300 MG ORAL CAPSULE 430885 CEFDINIR Inactive ZITHROMAX Z-EMIL 250 MG TABS Take two tablets today and then 1 tablet daily for 4 days ZITHROMAX Z-EMIL 250 MG TABS 323438 AZITHROM YCIN Inactive AMOXICILLIN 875 MG ORAL TABLET 1 tab by mouth twice daily AMOXICILLIN 875 MG ORAL TABLET 192021 AMOXICILLIN Inactive Advance Directives Directive Description Start [...] Negative Encounters Code Encounter Date Provider Facility CPT-48432 [id number] Vst-Est Level III 09:41:31 CDT Arie Casper MD [facility] CPT-96649 [id number] Vst-Est Level III 18:20:11 CDT Me lobito Russ APRN [facility] CPT-18426 [id number] Vst-Est Level III 17:21:41 CDT Me lobito Russ [facility] [place] CPT-51632 [id number] Vst-Est Level IV 13:30:22 C NIC Casper MD [facility] CPT-81984 Level 4 Est. Patient 13:05:26 CDT Myrna Real Bernabe maldonado MD [facility]-36883 86381-Daf Vst-Est Level IV 20:50:21 C DT Arie Casper MD [facility] CPT-76739 Level 3 Est. Patient 11:49:34 ROOM SERVICE [facility] Jessica boyd [facility]-52595 Level 3 Est. Patient 14:55:50 ROOM SERVICE [facility]LLHOP Jose Zhong MD [facility] CPT-51181 Level 3 Est. Patient 10:21:41 ROOM SERVICE BELLHOP Arie mcqueen MD [facility] CPT-88949 Level 3 Est. Patient 11:35:15 ROOM SERVICE BELLHOP Arie mcqueen MD [facility] CPT-26436 Level 3 Est. Patient 15:40:28 CDT Brii Are [facility][note 3] CPT-61082 Level 3 Est. Patient 16:40:36 CDT Arie mcqueen MD [facility]-34935 Level 4 Est. Patient 15:29:22 ROOM SERVICE BELLHOP Arie mcqueen MD [facility] CPT-29414 Level 3 Est. Patient 15:18:16 ROOM SERVICE BELLHOP Jono black DO [facility] CPT-82274 Level 4 Est. Patient 12:08:40 ROOM SERVICE BELLHOP Brii Are [facility][note 3] CPT-10377 Level 3 Est. Patient 09:24:42 CDT Brii Are [facility][note 3] CPT-51811 Level 3 Est. Patient 09:12:56 CDT Arie mcqueen MD [facility] CPT-47960 Level 3 Est. Patient 16:40:54 CDT Jose Zhong MD [facility] CPT-64587 Level 2 Est. Patient 13:01:13 CDT Brii Yepez ll [facility] [place] CPT-26551 Level 3 Est. Patient 11:55:30 ROOM SERVICE BELLHOP Jono black DO [facility] CPT-97478 Level 3 Est. Patient 09:52:36 ROOM SERVICE BELLHOP Brii Yepez ll [facility] CPT-34932 Level 3 Est. Patient 16:25:33 ROOM SERVICE BELLHOP Rich Rosales MD [facility] CPT-21202 Level 3 Est. Patient 20:33:55 CDT Arie mcqueen MD [facility] CPT-10179 Level 3 Est. Patient 14:18:20 CDT Rich Rosales MD [facility] CPT-31083 Level 4 Est. Patient 09:34:31 CDT Arie mcqueen MD [facility] CPT-73454 Level 3 Est. Patient 09:08:55 ROOM SERVICE BELLHOP Liliana vincent MD PhD [facility]-54587 Level 3 Est. Patient 16:44:07 ROOM SERVICE BELLHOP Arie mcqueen MD [facility] CPT-56972 Level 3 Est. Patient 10:44:27 CDT Arie mcqueen MD [facility] CPT-35260 Level 3 Est. Patient 08:55:41 CDT Jose Zhong MD [facility] CPT-08553 Level 3 Est. Patient 18:37:31 CDT Liliana vincent MD PhD [facility]-00745 Level 3 Est. Patient 14:28:23 CDT Abelardo HERNANDEZ [facility] CPT-40463 Level 3 Est. Patient 15:18:13 ROOM SERVICE BELLHOP Arie mcqueen MD [facility] CPT-43296 Level 3 Est. Patient 10:11:29 ROOM SERVICE BELLHOP Arie mcqueen MD [facility] CPT-70829 Level 3 Est. Patient 10:55:57 ROOM SERVICE BELLHOP Jono Cheema sofia DO [facility] CPT-70497 Level 3 Est. Patient 17:29:05 CDT Arie mcqueen MD [facility] Procedures Code Procedure Name Date Entry Date Standard Desc ription CPT-06751 Sono Soft Tissue Head and Neck - XRAY US E ONLY 17:10:14 CDT CPT-59866 Ear Wash with irrigation 17:21:41 CDT 07/04 CPT-05520 Nexplanon Removal 15:40:28 CDT CPT-39347 Sono transvag pelvis non OB uterus ovari es cervix - XRAY USE ONLY 08:58:14 ROOM SERVICE BELLHOP CPT-21144 UA w micro - LAB USE ONLY 16:04:56 ROOM SERVICE BELLHOP 2015 CPT-02159 Wet Prep/GEN - LAB USE ONLY 16:04:56 ROOM SERVICE BELLHOP 20 08/10/29 CPT-03072 First Vx - Ix admin via ID I M or jet injects without counseling by physician 16:57:10 CDT CPT-90985 Fluzone Preservative Free Intramuscular Suspension 16:57:10 CDT CPT-J0696 Rocephin 1000 mg (Ceftriaxone) 11:49:23 CDT CPT-J1040 Depo Medrol 80 mg (Methyl Prednisolone A cetate) 11:49:23 CDT CPT-J1100 Decadron 8mg (Dexamethasone) 11:49:23 CDT 2 CPT-96955 Abx/Therapy Injection 11:49:23 CDT CPT-91675 Abx/Therapy Injection 11:49:23 CDT CPT-14701 Abd compl w upright 09:07:26 ROOM SERVICE [facility] CPT-19499 Ear Wash 16:12:47 RO[facility] SERVICE [facility] CPT-OV Office Visit 11:12:01 CDT CPT-OV Office Visit 15:30:23 CDT CPT-56969 Sono pelvis non OB uterus ovaries cervix 15:50:44 CDT CPT-40744 Hand comp min 3V 16:42:32 CDT CPT-07945 Abd compl w upright 12:17:01 CDT CPT-23297 Nexplanon Placement 15:07:39 ROOM SERVICE [facility] CPT-73461 Removal of IUD 15:07:39 ROOM SERVICE [facility] CPT-74656 TB Tubersol 12:09:32 CDT CPT-03348 [facility] [employer] 13:[id number] CDT
--- OUTSIDE RECORDS SUMMARY | 2020-03-03 07:51 | XMS REPORT | Clinical Summary ---
Author Author Admin, Diamante Marcelo Organization [employer] Address Unknown Phone Unavailable Allergies, Adverse Reactions, [...] respiratory manifestations Sinusitis 473.9 Active Jessica Heaton CAN CRIMPER Unspecified sinusitis (chronic) Other mixed anxiety 300.00 [...] Cerumen impaction, bilateral 380.4 Active Brii Russ CAN CRIMPER Impacted cerumen Tonsillar enlargement 474.11 Active Brii Russ APRN Hypertrophy of tonsils alone Influenza Vaccination for Prophylaxis V04.81 Inactive Brii Russ CAN CRIMPER Need for prophylactic vaccin ation and inoculation against influenza Submandibular lymph node 785.6 Active Brii Are ll CAN CRIMPER Enlargement of lymph nodes Influenza Vaccination for [...] discharge ICD-623.5 Inactive Liliana lares MD PhD CYSTITIS ICD-595.9 Inactive Liliana Estrada MD Ph D Urinary frequency ICD-788.41 Inactive Jose Zhong MD Vaginal bleeding ICD-623.8 Inactive Jose Mcwilliams MD Influenza Vaccination for Prophylaxis ICD-V04.81 6 Inactive Carole HOPKINS Influenza Vaccination for Prophylaxis ICD-V04.81 8 Inactive Nilam Gus Medication List Medication Instructions Start Date Stop Date Generic Name NDC Status Provider Patient Instruction KEFLEX 500 MG ORAL CAPSULE 1 po tid CEPHALEXIN 744832 39423 Active Brii Russ APRN Active PROTONIX 40 MG ORAL TABLET DELAYED RELEASE 1 pill by m outh daily, for acid reflux PANTOPRAZOLE SODIUM 52651522697 Active Roseann Crawford Active AMOXICILLIN 875 MG ORAL TABLET 1 tab by mouth twice daily 1 AMOXICILLIN 90057685209 No Longer Active Brii Russ APRN Active ALPRAZOLAM 0.25 MG ORAL TABLET 1 tablet by mouth twice a day as needed for stress/anxiety ALPRAZOLAM 12634374284 Active KELLIE Escobar Active ESCITALOPRAM OXALATE 10 MG ORAL TABLET take 1 tab po qhs for mod 20 10/04/18 ESCITALOPRAM OXALATE 93695571426 Active Arie Casper MD Active TUSSIONEX PENNKINETIC ER 10-8 MG/5ML ORAL SUSPENSION E XTENDED RELEASE 5ml po q12hr PRN Cough HYDROCOD POLST-CHLORPHEN POLST 5 7290275310 No Longer Active Myrna Roberto MD Active ZITHROMAX Z-EMIL 250 MG TABS Take two tablets today and then 1 tablet daily for 4 days AZITHROMYCIN 37644784500 No Longer Active Flaco Rosales MD Active GUAIFENESIN DM 400-20 MG ORAL TABLET 1 pill by mouth t wice daily, if needed for cough DEXTROMETHORPHAN-GUAIFENESIN 48474713564 No Longer Active Rich Rosales MD Active CEFDINIR 300 MG ORAL CAPSULE 1 po BID x 10 days CEFDINIR 36849476375 No Longer Active Jessica Heaton APRN Active CHERATUSSIN AC 100-10 MG/5ML ORAL SYRUP 1 tsp by mouth every 4 hours as needed for cough GUAIFENESIN-CODEINE 11050538171 No Longe r Active Jessica Heaton APRN Active TAMIFLU 75 MG ORAL CAPSULE 1 po BID x 5 days 0 OSELTAMIVIR PHOSPHATE 35329987414 No Longer Active Jose Zhong MD Activ e ZITHROMAX Z-EMIL 250 MG ORAL TABLET 2 today, then 1 daily for 4 d ays AZITHROMYCIN 71629326048 No Longer Active Arie Casper MD Active PROTONIX 40 MG ORAL TABLET DELAYED RELEASE 1 po q a.m. PANTOPRAZOLE SODIUM 65794776481 No Longer Active Arie Casper MD Active BACTRIM DS 800-160 MG ORAL TABLET 1 tab by mouth twice daily 201 05/02/30 TRIMETHOPRIM-SULFAMETHOXAZOLE 47155348984 No Longer Active R laalberto Crawford Active NEXPLANON IMPLANT right arm subcutaneously ETONOGESTREL IMPL 11467893519 No Longer Active Brii Areboris CAN CRIMPER Active TUSSIONEX PENNKINETIC ER 10-8 MG/5ML ORAL SUSPENSION E XTENDED RELEASE 5ml po q12hr PRN Cough HYDROCOD POLST-CHLORPHEN POLST 5 4826378581 No Longer Active Brii Arell CAN CRIMPER Active CETIRIZINE HCL 10 MG ORAL TABLET 1 po qd PRN Allergies CETIRIZINE HCL 53301416476 No Longer Active Brii Arell CAN CRIMPER Activ e PREDNISONE 20 MG ORAL TABLET 2 tabs daily for 3 days, 1 tab daily for 3 days, 1/2 tab daily for 2 days PREDNISONE 30146316936 No Longer Active Arie Casper MD Active LOMOTIL 2.5-0.025 MG ORAL TABLET 1 tab po four times a day as needed for diarrhea DIPHENOXYLATE-ATROPINE 98344036373 No Lo nger Active Arie Casper MD Active ZOLOFT 50 MG ORAL TABLET 1 tablet by mouth daily 12/08 SERTRALINE HCL 97974110005 No Longer Active Arie Casper MD Ac tive NAPROXEN 500 MG ORAL TABLET Take 1 tab BID NAPR OXEN 75974248125 No Longer Active Arie Casper MD Active CEFDINIR 300 MG ORAL CAPSULE 1 po BID x 10 days CEFDINIR 49910355244 No Longer Active Brii Russ APRN Active PREDNISONE 20 MG ORAL TABLET 1 tablet daily for airway inflammat ion PREDNISONE 89070483938 No Longer Active Brii Russ APRN A ctive CEFDINIR 300 MG ORAL CAPSULE 1 po BID x 10 days CEFDINIR 84812487949 No Longer Active Jono Gagnon DO Active FLONASE 50 MCG/ACT NASAL SUSPENSION 1 spray each nostr il twice daily for allergies and runny nose until gone FLUT ICASONE PROPIONATE 00949457667 No Longer Active Jono Gagnon DO Active ALPRAZOLAM 0.25 MG ORAL TABLET 1 tablet by mouth every 8 hours as needed for stress ALPRAZOLAM 78604123325 No Longer Active Jono Gagnon DO Active ZITHROMAX Z-EMIL 250 MG ORAL TABLET 2 today, then 1 daily for 4 d ays AZITHROMYCIN 41674507786 No Longer Active Arie Casper MD Active PREDNISONE 20 MG ORAL TABLET 2 tabs daily for 3 days, 1 tab daily for 3 days, 1/2 tab daily for 2 days PREDNISONE 12068195976 No Longer Active Brii Russ APRN Active PREDNISONE 20 MG ORAL TABLET 1 tablet twice daily for 2 days, then 1 tablet once daily for 2 days PREDNISONE 36850683914 No Longer Active Brii Russ APRN Active PROMETHAZINE HCL 12.5 MG ORAL TABLET 1 tablet by mouth every 6 hours as needed for nausea/vomiting PROMETHAZINE HCL 64400083509 No L onger Active Jono Gagnon DO Active CITRATE OF MAGNESIA ORAL SOLUTION 1 bottle today for constipatio n MAGNESIUM CITRATE 21328832381 No Longer Active Jono Gagnon DO Active ZOFRAN 4 MG ORAL TABLET 1 TAB PO Q 6 HRS PRN NAUSEA 07/10/15 ONDANSETRON HCL 21903247651 No Longer Active Brii Russ APRN Acti ve LOMOTIL 2.5-0.025 MG ORAL TABLET 1 to 2 four times a day as needed for diarrhea DIPHENOXYLATE-ATROPINE 73362098473 No Longer Active January Russ APRN Active AMOXICILLIN 500 MG ORAL TABLET 2 tabs twice a day for 10 days 07/09/11 AMOXICILLIN 67228401046 No Longer Active Brii Russ APRN Active CYCLOBENZAPRINE HCL 10 MG ORAL TABLET 1/2 - 1 tablet b y mouth three times daily as needed for muscle spasm/pain CYCLOBENZAPRINE HCL 17383866124 No Longer Active Arie Casper MD Active LOMOTIL 2.5-0.025 MG ORAL TABLET 1 to 2 four times a day as needed for diarrhea DIPHENOXYLATE-ATROPINE 51484232563 No Longer Active Fozia Casper MD Active MACROBID 100 MG ORAL CAPSULE 1 cap by mouth twice daily NITROFURANTOIN MONOHYD MACRO 86248883904 No Longer Active Arie Casper MD Active ZYRTEC ALLERGY 10 MG ORAL CAPSULE 1 po qd CE TIRIZINE HCL 45339394645 No Longer Active Arie Casper MD Active AZITHROMYCIN 250 MG ORAL TABLET 2 po qd x 1 day, then 1 po q d x 4 days AZITHROMYCIN 29194218585 No Longer Active Jessica salgado APRN Active PREDNISONE 20 MG ORAL TABLET 2 tabs daily for 3 days, 1 tab daily for 3 days, 1/2 tab daily for 2 days PREDNISONE 49335782130 No Longer Active Jessica Heaton APRN Active PROMETHAZINE HCL 25 MG ORAL TABLET 1 four times a day as nee ded for vomiting PROMETHAZINE HCL 74629837529 No Longer Active Myrna Roberto MD Active BACTRIM DS 800-160 MG ORAL TABLET 1 twice a day 05/30 SULFAMETHOXAZOLE-TRIMETHOPRIM 11271547182 No Longer Active Myrna Roberto MD Active VICKS DAYQUIL SEVERE COLD/FLU TABLET 1 tab every 6 hours prn 201 02/22/17 [id number]-MG-APAP TABS 71234228259 No Longer Active K fany Roberto MD Active GUAIFENESIN-CODEINE 100-10 MG/5ML ORAL SYRUP 2 tsp every 6 hours prn GUAIFENESIN-CODEINE 72212242080 No Longer Active Myrna Roberto MD Active NAPROXEN 500 MG ORAL TABLET one tab PO BID NAPR OXEN 93996822243 No Longer Active Myrna Roberto MD Active AUGMENTIN 875-125 MG ORAL TABLET 1 tab by mouth twice daily with food AMOXICILLIN-POT CLAVULANATE 54386193828 No Longer Act zaid Liliana Estrada MD PhD Active AMOXICILLIN 500 MG ORAL CAPSULE 1 tab by mouth 3 times daily 201 02/21/05 AMOXICILLIN 73160907430 No Longer Active Liliana Estrada MD PhD Active TESSALON PERLES 100 MG ORAL CAPSULE 1 tablet by mouth 3 times da cory BENZONATATE 85187179798 No Longer Active Liliana Estrada MD PhD Active FLAGYL 500 MG ORAL TABLET 1 tablet by mouth two times daily 2014 METRONIDAZOLE 95424864666 No Longer Active Nilam Raida Ac tive ZITHROMAX 250 MG ORAL TABLET 2 po today, then 1 po q days 2-5 20 06/08/16 AZITHROMYCIN 76393987934 No Longer Active Arie Casper MD Active VITAMINS 0.8 MG ORAL TABLET take 1 tab po qday [id number] 54975507538 No Longer Active Arie Casper MD Active IBUPROFEN 800 MG ORAL TABLET take one po Q 8 hours 201 02/01/16 IBUPROFEN 99302403991 No Longer Active Arie Casper MD Acti ve [facility] TUSSIN COUGH/COLD CF 5-10-100 MG/5ML ORAL LIQUID 2 teasp oons every 4 hours [id number] 58924594883 No Longer Active Blaine Casper MD Active COMTREX COLD/COUGH DAY/NITE MS 5-2-10-325 MG ORAL 2 caps deja ry 4 hours [id number] 30338545791 No Longer Active Landon Casper MD Active CHLORASEPTIC MAX SORE THROAT 15-10 MG MOUTH/THROAT LOZENGE 1 every 2 hours prn BENZOCAINE-MENTHOL 06305800721 No Longer Active Arie Casper MD Active PREDNISONE 20 MG ORAL TABLET 2 tabs daily for 3 days, 1 tab daily for 3 days, 1/2 tab daily for 2 days PREDNISONE 81386856490 No Longer Active Jose Zhong MD Active AZITHROMYCIN 250 MG ORAL TABLET 2 po qd x 1 day, then 1 po q d x 4 days AZITHROMYCIN 86863216451 No Longer Active Jose Mcwilliams MD Active ZOFRAN ODT 4 MG ORAL TABLET DISINTEGRATING 1 po q6hr PRN Nausea ONDANSETRON 55623588874 No Longer Active Rich Rosales MD Active ZOFRAN 4 MG ORAL TABLET 1 tablet every 4 hours ONDANSETRON HCL 81826347704 No Longer Active Rich Rosales MD Activ e MUCINEX 600 MG ORAL TABLET EXTENDED RELEASE 12 HOUR Ta ke 1-2 tablets every 12 hours GUAIFENESIN 73865383005 No Longer Active Rich Rosales MD Active BACTRIM 400-80 MG ORAL TABLET take one po BID SULFAMETHOXAZOLE-TRIMETHOPRIM 23289622611 No Longer Active Abelardo HERNANDEZ Active AZITHROMYCIN 500 MG ORAL TABLET 1 PO q day x 6 days 03/02/23 AZITHROMYCIN 78117270022 No Longer Active Tin HERNANDEZ Activ e ZITHROMAX 250 MG ORAL TABLET 2 po today, then 1 po q days 2-5 20 10/03/08 AZITHROMYCIN 75115980463 No Longer Active Arie Casper MD Active ZITHROMAX 250 MG ORAL TABLET 2 po today, then 1 po q days 2-5 20 09/23/25 AZITHROMYCIN 96294518306 No Longer Active Arie Casper MD Active AMOXICILLIN 500 MG ORAL CAPSULE 1 tab by mouth 3 times daily 201 11/24/09 AMOXICILLIN 97814562814 No Longer Active Arie Casper MD Active BACTRIM DS 800-160 MG ORAL TABLET 1 tab by mouth twice daily 201 11/03/14 TRIMETHOPRIM-SULFAMETHOXAZOLE 35894888561 No Longer Active Fozia Casper MD Active AMOXICILLIN 500 MG ORAL TABLET take 1 tab po TID 08/05 AMOXICILLIN 07851609760 No Longer Active Arie Casper MD Acti ve BACTRIM DS 800-160 MG ORAL TABLET 1 tab by mouth twice daily 201 11/03/14 BACTRIM DS 800-160 MG ORAL TABLET 203555 TRIMETHOPRIM-SULFAMETHOXAZOLE Inactive MUCINEX 600 MG ORAL TABLET EXTENDED RELEASE 12 HOUR Ta ke 1-2 tablets every 12 hours MUCINEX 600 MG ORAL TABLET EXTENDED RELEA SE 12 HOUR GUAIFENESIN Inactive ZOFRAN 4 MG ORAL TABLET 1 tablet every 4 hours ZOFRAN 4 MG ORAL TABLET 949969 ONDANSETRON HCL Inactive ZOFRAN ODT 4 MG ORAL TABLET DISINTEGRATING 1 po q6hr PRN Nausea ZOFRAN ODT 4 MG ORAL TABLET DISINTEGRATING 252871 ONDAN SETRON Inactive CHLORASEPTIC MAX SORE THROAT 15-10 MG MOUTH/THROAT LOZENGE 1 every 2 hours prn CHLORASEPTIC MAX SORE THROAT 15-10 MG MOUTH/THROAT LOZENGE BENZOCAINE-MENTHOL Inactive COMTREX COLD/COUGH DAY/NITE MS 5-2-10-325 MG ORAL 2 caps deja ry 4 hours COMTREX COLD/COUGH DAY/NITE MS 5-2-10-325 MG ORA L [id number] Inactive [facility] TUSSIN COUGH/COLD CF 5-10-100 MG/5ML ORAL LIQUID 2 teasp oons every 4 hours [facility] TUSSIN COUGH/COLD CF 5-10-100 MG/5ML ORAL LI QUID [id number] Inactive IBUPROFEN 800 MG ORAL TABLET take one po Q 8 hours 201 02/01/16 IBUPROFEN 800 MG ORAL TABLET 896808 IBUPROFEN Inactive VITAMINS 0.8 MG ORAL TABLET take 1 tab po qday VITAMINS 0.8 MG ORAL TABLET SICTIPNX-EEN-H E-FA Inactive TESSALON PERLES 100 MG ORAL CAPSULE 1 tablet by mouth 3 times da cory TESSALON PERLES 100 MG ORAL CAPSULE 564825 BENZONATATE Inactive AMOXICILLIN 500 MG ORAL CAPSULE 1 tab by mouth 3 times daily 201 02/21/05 AMOXICILLIN 500 MG ORAL CAPSULE 498711 AMOXICILLIN Inactive GUAIFENESIN-CODEINE 100-10 MG/5ML ORAL SYRUP 2 tsp every 6 hours prn GUAIFENESIN-CODEINE 100-10 MG/5ML ORAL SYRUP 300618 GUAIFENESIN-CODEINE Inactive VICKS DAYQUIL SEVERE COLD/FLU TABLET 1 tab every 6 hours prn 201 02/22/17 VICKS DAYQUIL SEVERE COLD/FLU TABLET PHENYLEPHRI VE-FF-AK-APAP TABS Inactive BACTRIM DS 800-160 MG ORAL TABLET 1 twice a day 05/30 BACTRIM DS 800-160 MG ORAL TABLET 737692 SULFAMETHOXAZOLE-TRIMETHOPRIM Inactiv e PROMETHAZINE HCL 25 MG ORAL TABLET 1 four times a day as nee ded for vomiting PROMETHAZINE HCL 25 MG ORAL TABLET 657585 PROMETHAZINE HCL Inactive ZYRTEC ALLERGY 10 MG ORAL CAPSULE 1 po qd ZYRTEC ALLERGY 10 MG ORAL CAPSULE CETIRIZINE HCL Inactive MACROBID 100 MG ORAL CAPSULE 1 cap by mouth twice daily MACROBID 100 MG ORAL CAPSULE 7281853 NITROFURANTOIN MONOHYD MACRO In active LOMOTIL 2.5-0.025 MG ORAL TABLET 1 to 2 four times a day as needed for diarrhea LOMOTIL 2.5-0.025 MG ORAL TABLET 6677702 DIPHENOXYLATE-ATROPINE Inactive CYCLOBENZAPRINE HCL 10 MG ORAL TABLET 1/2 - 1 tablet b y mouth three times daily as needed for muscle spasm/pain CYCLOBEN ZAPRINE HCL 10 MG ORAL TABLET 207489 CYCLOBENZAPRINE HCL Inactive AMOXICILLIN 500 MG ORAL TABLET 2 tabs twice a day for 10 days 07/09/11 AMOXICILLIN 500 MG ORAL TABLET 004223 AMOXICILLIN I nactive LOMOTIL 2.5-0.025 MG ORAL TABLET 1 to 2 four times a day as needed for diarrhea LOMOTIL 2.5-0.025 MG ORAL TABLET 2733343 DIPHENOXYLATE-ATROPINE Inactive ZOFRAN 4 MG ORAL TABLET 1 TAB PO Q 6 HRS PRN NAUSEA 07/10/15 ZOFRAN 4 MG ORAL TABLET 263246 ONDANSETRON HCL Inactive CITRATE OF MAGNESIA ORAL SOLUTION 1 bottle today for constipatio n CITRATE OF MAGNESIA ORAL SOLUTION 1093018 MAGNESIUM CITR ATE Inactive PROMETHAZINE HCL 12.5 MG ORAL TABLET 1 tablet by mouth every 6 hours as needed for nausea/vomiting PROMETHAZINE HCL 12.5 MG ORA L TABLET 710011 PROMETHAZINE HCL Inactive PREDNISONE 20 MG ORAL TABLET 1 tablet twice daily for 2 days, then 1 tablet once daily for 2 days PREDNISONE 20 MG ORAL TABLET 798599 PREDNISONE Inactive ALPRAZOLAM 0.25 MG ORAL TABLET 1 tablet by mouth every 8 hours as needed for stress ALPRAZOLAM 0.25 MG ORAL TABLET 004050 ALPRA ZOLAM Inactive FLONASE 50 MCG/ACT NASAL SUSPENSION 1 spray each nostr il twice daily for allergies and runny nose until gone FLON ASE 50 MCG/ACT NASAL SUSPENSION 3375422 FLUTICASONE PROPIONATE Inactive PREDNISONE 20 MG ORAL TABLET 1 tablet daily for airway inflammat ion PREDNISONE 20 MG ORAL TABLET 224000 PREDNISONE [place] ctive NAPROXEN 500 MG ORAL TABLET Take 1 tab BID NAPROXEN 500 MG ORAL TABLET 958632 NAPROXEN Inactive ZOLOFT 50 MG ORAL TABLET 1 tablet by mouth daily 12/08 ZOLOFT 50 MG ORAL TABLET 834152 SERTRALINE HCL Inactive LOMOTIL 2.5-0.025 MG ORAL TABLET 1 tab po four times a day as needed for diarrhea LOMOTIL 2.5-0.025 MG ORAL TABLET 3899698 DIPHENOXYLATE-ATROPINE Inactive CETIRIZINE HCL 10 MG ORAL TABLET 1 po qd PRN Allergies CETIRIZINE HCL 10 MG ORAL TABLET 7463535 CETIRIZINE HCL Inactiv e TUSSIONEX PENNKINETIC ER 10-8 MG/5ML ORAL SUSPENSION E XTENDED RELEASE 5ml po q12hr PRN Cough TUSSIONEX PENNKINETI C ER 10-8 MG/5ML ORAL SUSPENSION EXTENDED RELEASE HYDROCOD POLST-CHLORPHEN POLST I nactive NEXPLANON IMPLANT right arm subcutaneously NEXPLANON IMPLANT ETONOGESTREL IMPL Inactive PROTONIX 40 MG ORAL TABLET DELAYED RELEASE 1 po q a.m. PROTONIX 40 MG ORAL TABLET DELAYED RELEASE 027992 PANTOPRAZOLE SODI UM Inactive CHERATUSSIN AC 100-10 MG/5ML ORAL SYRUP 1 tsp by mouth every 4 hours as needed for cough CHERATUSSIN AC 100-10 MG/5ML ORAL SYRUP 9 89818 GUAIFENESIN-CODEINE Inactive GUAIFENESIN DM 400-20 MG ORAL TABLET 1 pill by mouth t wice daily, if needed for cough GUAIFENESIN DM 400-20 MG ORAL TABLET 1144 013 DEXTROMETHORPHAN-GUAIFENESIN Inactive TUSSIONEX PENNKINETIC ER 10-8 MG/5ML ORAL SUSPENSION E XTENDED RELEASE 5ml po q12hr PRN Cough TUSSIONEX PENNKINETI C ER 10-8 MG/5ML ORAL SUSPENSION EXTENDED RELEASE HYDROCOD POLST-CHLORPHEN POLST I nactive AMOXICILLIN 500 MG ORAL TABLET take 1 tab po TID 08/05 AMOXICILLIN 500 MG ORAL TABLET 704891 AMOXICILLIN Inactive AMOXICILLIN 500 MG ORAL CAPSULE 1 tab by mouth 3 times daily 201 11/24/09 AMOXICILLIN 500 MG ORAL CAPSULE 120977 AMOXICILLIN Inactive ZITHROMAX 250 MG ORAL TABLET 2 po today, then 1 po q days 2-5 20 09/23/25 ZITHROMAX 250 MG ORAL TABLET 928179 AZITHROMYCIN [place] ctive ZITHROMAX 250 MG ORAL TABLET 2 po today, then 1 po q days 2-5 20 10/03/08 ZITHROMAX 250 MG ORAL TABLET 423007 AZITHROMYCIN [place] ctive AZITHROMYCIN 500 MG ORAL TABLET 1 PO q day x 6 days 20 03/02/23 AZITHROMYCIN 500 MG ORAL TABLET 0656752 AZITHROMYCIN Inactive BACTRIM 400-80 MG ORAL TABLET take one po BID BACTRIM 400- 80 MG ORAL TABLET 224141 SULFAMETHOXAZOLE-TRIMETHOPRIM Inactive AZITHROMYCIN 250 MG ORAL TABLET 2 po qd x 1 day, then 1 po q d x 4 days AZITHROMYCIN 250 MG ORAL TABLET 713766 AZITHROMY ALLISON Inactive PREDNISONE 20 MG ORAL TABLET 2 tabs daily for 3 days, 1 tab daily for 3 days, 1/2 tab daily for 2 days PREDNISONE 20 MG ORAL T ABLET 173610 PREDNISONE Inactive ZITHROMAX 250 MG ORAL TABLET 2 po today, then 1 po q days 2-5 20 06/08/16 ZITHROMAX 250 MG ORAL TABLET 426653 AZITHROMYCIN [place] ctive FLAGYL 500 MG ORAL TABLET 1 tablet by mouth two times daily 2014 FLAGYL 500 MG ORAL TABLET 765479 METRONIDAZOLE Inacti ve AUGMENTIN 875-125 MG ORAL TABLET 1 tab by mouth twice daily with food AUGMENTIN 875-125 MG ORAL TABLET 176941 AMOXICIL ELSA-POT CLAVULANATE Inactive NAPROXEN 500 MG ORAL TABLET one tab PO BID NAPROXEN 500 MG ORAL TABLET 795009 NAPROXEN Inactive PREDNISONE 20 MG ORAL TABLET 2 tabs daily for 3 days, 1 tab daily for 3 days, 1/2 tab daily for 2 days PREDNISONE 20 MG ORAL T ABLET 556649 PREDNISONE Inactive AZITHROMYCIN 250 MG ORAL TABLET 2 po qd x 1 day, then 1 po q d x 4 days AZITHROMYCIN 250 MG ORAL TABLET 499272 AZITHROMY ALLISON Inactive PREDNISONE 20 MG ORAL TABLET 2 tabs daily for 3 days, 1 tab daily for 3 days, 1/2 tab daily for 2 days PREDNISONE 20 MG ORAL T ABLET 740409 PREDNISONE Inactive ZITHROMAX Z-EMIL 250 MG ORAL TABLET 2 today, then 1 daily for 4 d ays ZITHROMAX Z-EMIL 250 MG ORAL TABLET 670472 AZITHROMYCIN Inactive CEFDINIR 300 MG ORAL CAPSULE 1 po BID x 10 days 12/18 CEFDINIR 300 MG ORAL CAPSULE 120553 CEFDINIR Inactive CEFDINIR 300 MG ORAL CAPSULE 1 po BID x 10 days CEFDINIR 300 MG ORAL CAPSULE 257541 CEFDINIR Inactive PREDNISONE 20 MG ORAL TABLET 2 tabs daily for 3 days, 1 tab daily for 3 days, 1/2 tab daily for 2 days PREDNISONE 20 MG ORAL T ABLET 021932 PREDNISONE Inactive BACTRIM DS 800-160 MG ORAL TABLET 1 tab by mouth twice daily 201 05/02/30 BACTRIM DS 800-160 MG ORAL TABLET 180835 TRIMETHOPRIM-SULFAMETHOXAZOLE Inactive ZITHROMAX Z-EMIL 250 MG ORAL TABLET 2 today, then 1 daily for 4 d ays ZITHROMAX Z-EMIL 250 MG ORAL TABLET 114887 AZITHROMYCIN Inactive TAMIFLU 75 MG ORAL CAPSULE 1 po BID x 5 days 0 TAMIFLU 75 MG ORAL CAPSULE 907472 OSELTAMIVIR PHOSPHATE Inactive CEFDINIR 300 MG ORAL CAPSULE 1 po BID x 10 days 201801/03 CEFDINIR 300 MG ORAL CAPSULE 720958 CEFDINIR Inactive ZITHROMAX Z-EMIL 250 MG TABS Take two tablets today and then 1 tablet daily for 4 days ZITHROMAX Z-EMIL 250 MG TABS 993301 AZITHROM YCIN Inactive AMOXICILLIN 875 MG ORAL TABLET 1 tab by mouth twice daily AMOXICILLIN 875 MG ORAL TABLET 679547 AMOXICILLIN Inactive Advance Directives Directive Description Start [...] Negative Encounters Code Encounter Date Provider Facility CPT-27386 [id number] Vst-Est Level III 09:41:31 CDT Arie Casper MD [facility] CPT-90872 [id number] Vst-Est Level III 18:20:11 CDT Me lobito Russ APRN [facility] CPT-72282 [id number] Vst-Est Level III 17:21:41 CDT Me lobito Russ [facility] CPT-09659 43570-Mix Vst-Est Level IV 13:30:22 C NIC Casper MD [facility] CPT-75205 Level 4 Est. Patient 13:05:26 CDT Myrna Real Bernabe maldonado MD [facility]-03171 79541-Ldn Vst-Est Level IV 20:50:21 C DT Arie Casper MD [facility] CPT-23867 Level 3 Est. Patient 11:49:34 [employer] Jessica boyd [facility] [place]-98619 Level 3 Est. Patient 14:55:50 [employer] Jose Zhong MD [facility] CPT-26360 Level 3 Est. Patient 10:21:41 [employer] Arie mcqueen MD [facility] CPT-56279 Level 3 Est. Patient 11:35:15 [employer] Arie mcqueen MD [facility] CPT-68569 Level 3 Est. Patient 15:40:28 CDT Brii Are [facility] CPT-16506 Level 3 Est. Patient 16:40:36 CDT Arie mcqueen MD [facility]-85565 Level 4 Est. Patient 15:29:22 [employer] Arie mcqueen MD [facility] CPT-73574 Level 3 Est. Patient 15:18:16 [employer] Jono black DO [facility] CPT-61261 Level 4 Est. Patient 12:08:40 [employer] Brii Are [facility] CPT-54395 Level 3 Est. Patient 09:24:42 CDT Brii Are [facility] CPT-35824 Level 3 Est. Patient 09:12:56 CDT Arie mcqueen MD [facility] CPT-38003 Level 3 Est. Patient 16:40:54 CDT Jose Zhong MD [facility] CPT-12937 Level 2 Est. Patient 13:01:13 CDT Brii Yepez ll [facility] CPT-67538 Level 3 Est. Patient 11:55:30 [employer] Jono black DO [facility] CPT-75151 Level 3 Est. Patient 09:52:36 [employer] Brii Yepez ll [facility] [place] CPT-58065 Level 3 Est. Patient 16:25:33 [employer] Rich Rosales MD [facility] CPT-51882 Level 3 Est. Patient 20:33:55 CDT Arie mcqueen MD [facility] CPT-57770 Level 3 Est. Patient 14:18:20 CDT Rich Rosales MD [facility] CPT-97730 Level 4 Est. Patient 09:34:31 CDT Arie mcqueen MD [facility] CPT-85294 Level 3 Est. Patient 09:08:55 [employer] Liliana vincent MD PhD [facility]-64983 Level 3 Est. Patient 16:44:07 [employer] Arie mcqueen MD [facility] CPT-61556 Level 3 Est. Patient 10:44:27 CDT Arie mcqueen MD [facility] CPT-29012 Level 3 Est. Patient 08:55:41 CDT Jose Zhong MD [facility] CPT-63636 Level 3 Est. Patient 18:37:31 CDT Liliana vincent MD PhD [facility]-49089 Level 3 Est. Patient 14:28:23 CDT Abelardo HERNANDEZ [facility] CPT-18411 Level 3 Est. Patient 15:18:13 [employer] Arie mcqueen MD [facility] CPT-36387 Level 3 Est. Patient 10:11:29 [employer] Arie mcqueen MD [facility] CPT-88420 Level 3 Est. Patient 10:55:57 [employer] Jono Cheema sofia DO [facility] CPT-42256 Level 3 Est. Patient 17:29:05 CDT Arie mcqueen MD [facility] Procedures Code Procedure Name Date Entry Date Standard Desc ription CPT-80176 Sono Soft Tissue Head and Neck - XRAY US E ONLY 17:10:14 CDT CPT-37108 Ear Wash with irrigation 17:21:41 CDT 07/04 CPT-47765 Nexplanon Removal 15:40:28 CDT CPT-42198 Sono transvag pelvis non OB uterus ovari es cervix - XRAY USE ONLY 08:58:14 [employer] CPT-41947 UA w micro - LAB USE ONLY 16:04:56 [employer] 2015 CPT-13775 Wet Prep/GEN - LAB USE ONLY 16:04:56 [employer] 20 08/10/29 CPT-09962 First Vx - Ix admin via ID I M or jet injects without counseling by physician 16:57:10 CDT CPT-40417 Fluzone Preservative Free Intramuscular Suspension 16:57:10 CDT CPT-J0696 Rocephin 1000 mg (Ceftriaxone) 11:49:23 CDT CPT-J1040 Depo Medrol 80 mg (Methyl Prednisolone A cetate) 11:49:23 CDT CPT-J1100 Decadron 8mg (Dexamethasone) 11:49:23 CDT 2 CPT-05383 Abx/Therapy Injection 11:49:23 CDT CPT-39064 Abx/Therapy Injection 11:49:23 CDT CPT-59151 Abd compl w upright 09:07:26 [employer] CPT-91315 Ear Wash 16:12:47 [employer] CPT-OV Office Visit 11:12:01 CDT CPT-OV Office Visit 15:30:23 CDT CPT-70928 Sono pelvis non OB uterus ovaries cervix 15:50:44 CDT CPT-51627 Hand comp min 3V 16:42:32 CDT CPT-68034 Abd compl w upright 12:17:01 CDT CPT-20792 Nexplanon Placement 15:07:39 [employer] CPT-26821 Removal of IUD 15:07:39 [employer] CPT-10718 TB Tubersol 12:09:32 CDT CPT-92572 TB Tubersol 13:55:43 CDT
--- OUTSIDE RECORDS SUMMARY | 2020-03-03 07:51 | XMS REPORT | Clinical Summary ---
Author Author Admin, Diamante Marcelo Organization [facility] Address Unknown Phone Unavailable Allergies, Adverse [...] with depression 300.4 Active Brii Ramirez l [employer] Dysthymic disorder URI 465.9 Active Jono Gagnon [...] lymph node 785.6 Active Brii Are ll [employer] Enlargement of lymph nodes Influenza Vaccination for [...] Inactive Jose Marcelo Fever ICD-780.60 Inactive Liliana Etsrada MD PhD 20 08/12/16 Symptom, cough ICD-786.2 [...] MG ORAL CAPSULE 1 po tid CEPHALEXIN 051375 19968 Active Brii Russ APRN Active PROTONIX 40 MG ORAL TABLET DELAYED RELEASE 1 pill by m outh daily, for acid reflux PANTOPRAZOLE SODIUM 05206510246 Active Roseann Crawford Active AMOXICILLIN 875 MG ORAL TABLET 1 tab by mouth twice daily 1 AMOXICILLIN 05376510067 No Longer Active Brii Russ APRN Active ALPRAZOLAM 0.25 MG ORAL TABLET 1 tablet by mouth twice a day as needed for stress/anxiety ALPRAZOLAM 48924688389 Active [facility] Active ESCITALOPRAM OXALATE 10 MG ORAL TABLET take 1 tab po qhs for mod 20 10/04/18 ESCITALOPRAM OXALATE 50056295428 Active Arie Casper MD Active TUSSIONEX PENNKINETIC ER 10-8 MG/5ML ORAL SUSPENSION E XTENDED RELEASE 5ml po q12hr PRN Cough HYDROCOD POLST-CHLORPHEN POLST 5 8440208650 No Longer Active Myrna Roberto MD Active ZITHROMAX Z-EMIL 250 MG TABS Take two tablets today and then 1 tablet daily for 4 days AZITHROMYCIN 15775720138 No Longer Active Flaco Rosales MD Active GUAIFENESIN DM 400-20 MG ORAL TABLET 1 pill by mouth t wice daily, if needed for cough DEXTROMETHORPHAN-GUAIFENESIN 00909501671 No Longer Active Rich Rosales MD Active CEFDINIR 300 MG ORAL CAPSULE 1 po BID x 10 days CEFDINIR 93100060198 No Longer Active Jillina Frazell [employer] Active CHERATUSSIN AC 100-10 MG/5ML ORAL SYRUP 1 tsp by mouth every 4 hours as needed for cough GUAIFENESIN-CODEINE 02897430502 No Longe r Active Jessica Faithnaomi [employer] Active TAMIFLU 75 MG ORAL CAPSULE 1 po BID x 5 days 0 OSELTAMIVIR PHOSPHATE 99681264779 No Longer Active Jose Zhong MD Activ e ZITHROMAX Z-EMIL 250 MG ORAL TABLET 2 today, then 1 daily for 4 d ays AZITHROMYCIN 04417245700 No Longer Active Arie Casper MD Active PROTONIX 40 MG ORAL TABLET DELAYED RELEASE 1 po q a.m. PANTOPRAZOLE SODIUM 29200337617 No Longer Active Arie Casper MD Active BACTRIM DS 800-160 MG ORAL TABLET 1 tab by mouth twice daily 201 05/02/30 TRIMETHOPRIM-SULFAMETHOXAZOLE 26066075002 No Longer Active R [facility] Active NEXPLANON IMPLANT right arm subcutaneously ETONOGESTREL IMPL 76153496111 No Longer Active Brii Arell [employer] Active TUSSIONEX PENNKINETIC ER 10-8 MG/5ML ORAL SUSPENSION E XTENDED RELEASE 5ml po q12hr PRN Cough HYDROCOD POLST-CHLORPHEN POLST 5 9280359978 No Longer Active Brii Arell [employer] Active CETIRIZINE HCL 10 MG ORAL TABLET 1 po qd PRN Allergies CETIRIZINE HCL 49917963832 No Longer Active Brii Arell [employer] Activ e PREDNISONE 20 MG ORAL TABLET 2 tabs daily for 3 days, 1 tab daily for 3 days, 1/2 tab daily for 2 days PREDNISONE 30350991081 No Longer Active Arie Casper MD Active LOMOTIL 2.5-0.025 MG ORAL TABLET 1 tab po four times a day as needed for diarrhea DIPHENOXYLATE-ATROPINE 64115637067 No Lo nger Active Arie Casper MD Active ZOLOFT 50 MG ORAL TABLET 1 tablet by mouth daily 12/08 SERTRALINE HCL 46421890635 No Longer Active Arie Casper MD Ac tive NAPROXEN 500 MG ORAL TABLET Take 1 tab BID NAPR OXEN 98553365172 No Longer Active Arie Casper MD Active CEFDINIR 300 MG ORAL CAPSULE 1 po BID x 10 days CEFDINIR 68886672916 No Longer Active Brii Russ APRN Active PREDNISONE 20 MG ORAL TABLET 1 tablet daily for airway inflammat ion PREDNISONE 85477623006 No Longer Active Brii Russ APRN A ctive CEFDINIR 300 MG ORAL CAPSULE 1 po BID x 10 days CEFDINIR 79842262212 No Longer Active Jono Gagnno DO Active FLONASE 50 MCG/ACT NASAL SUSPENSION 1 spray each nostr il twice daily for allergies and runny nose until gone FLUT ICASONE PROPIONATE 35655002088 No Longer Active Jono Gagnon DO Active ALPRAZOLAM 0.25 MG ORAL TABLET 1 tablet by mouth every 8 hours as needed for stress ALPRAZOLAM 91053871341 No Longer Active Jono Gagnon DO Active ZITHROMAX Z-EMIL 250 MG ORAL TABLET 2 today, then 1 daily for 4 d ays AZITHROMYCIN 31001219625 No Longer Active Arie Casper MD Active PREDNISONE 20 MG ORAL TABLET 2 tabs daily for 3 days, 1 tab daily for 3 days, 1/2 tab daily for 2 days PREDNISONE 09287034941 No Longer Active Brii Russ APRN Active PREDNISONE 20 MG ORAL TABLET 1 tablet twice daily for 2 days, then 1 tablet once daily for 2 days PREDNISONE 63048475586 No Longer Active Brii Russ APRN Active PROMETHAZINE HCL 12.5 MG ORAL TABLET 1 tablet by mouth every 6 hours as needed for nausea/vomiting PROMETHAZINE HCL 39336129169 No L onger Active Jono Gagnon DO Active CITRATE OF MAGNESIA ORAL SOLUTION 1 bottle today for constipatio n MAGNESIUM CITRATE 19681927035 No Longer Active Jono Gagnon DO Active ZOFRAN 4 MG ORAL TABLET 1 TAB PO Q 6 HRS PRN NAUSEA 07/10/15 ONDANSETRON HCL 54437552425 No Longer Active Brii Russ APRN Acti ve LOMOTIL 2.5-0.025 MG ORAL TABLET 1 to 2 four times a day as needed for diarrhea DIPHENOXYLATE-ATROPINE 99724058143 No Longer Active January Russ APRN Active AMOXICILLIN 500 MG ORAL TABLET 2 tabs twice a day for 10 days 07/09/11 AMOXICILLIN 48993309858 No Longer Active Brii Russ APRN Active CYCLOBENZAPRINE HCL 10 MG ORAL TABLET 1/2 - 1 tablet b y mouth three times daily as needed for muscle spasm/pain CYCLOBENZAPRINE HCL 32440918524 No Longer Active Arie Casper MD Active LOMOTIL 2.5-0.025 MG ORAL TABLET 1 to 2 four times a day as needed for diarrhea DIPHENOXYLATE-ATROPINE 40292579936 No Longer Active Fozia Casper MD Active MACROBID 100 MG ORAL CAPSULE 1 cap by mouth twice daily NITROFURANTOIN MONOHYD MACRO 21282692909 No Longer Active Arie Casper MD Active ZYRTEC ALLERGY 10 MG ORAL CAPSULE 1 po qd CE TIRIZINE HCL 97654241806 No Longer Active Arie Casper MD Active AZITHROMYCIN 250 MG ORAL TABLET 2 po qd x 1 day, then 1 po q d x 4 days AZITHROMYCIN 27531664184 No Longer Active Jessica salgado APRN Active PREDNISONE 20 MG ORAL TABLET 2 tabs daily for 3 days, 1 tab daily for 3 days, 1/2 tab daily for 2 days PREDNISONE 03641851758 No Longer Active Jessica Heaton APRN Active PROMETHAZINE HCL 25 MG ORAL TABLET 1 four times a day as nee ded for vomiting PROMETHAZINE HCL 90926930511 No Longer Active Myrna Roberto MD Active BACTRIM DS 800-160 MG ORAL TABLET 1 twice a day 05/30 SULFAMETHOXAZOLE-TRIMETHOPRIM 98208290110 No Longer Active Myrna Roberto MD Active VICKS DAYQUIL SEVERE COLD/FLU TABLET 1 tab every 6 hours prn 201 02/22/17 [id number] TABS 03559876071 No Longer Active Chris Roberto MD Active GUAIFENESIN-CODEINE 100-10 MG/5ML ORAL SYRUP 2 tsp every 6 hours prn GUAIFENESIN-CODEINE 32260956993 No Longer Active Myrna Roberto MD Active NAPROXEN 500 MG ORAL TABLET one tab PO BID NAPR OXEN 31311459445 No Longer Active Myrna Roberto MD Active AUGMENTIN 875-125 MG ORAL TABLET 1 tab by mouth twice daily with food AMOXICILLIN-POT CLAVULANATE 24870829701 No Longer Act zaid Liliana Estrada MD PhD Active AMOXICILLIN 500 MG ORAL CAPSULE 1 tab by mouth 3 times daily 201 02/21/05 AMOXICILLIN 92469559335 No Longer Active Liliana Estrada MD PhD Active TESSALON PERLES 100 MG ORAL CAPSULE 1 tablet by mouth 3 times da cory BENZONATATE 38144501460 No Longer Active Liliana Estrada MD PhD Active FLAGYL 500 MG ORAL TABLET 1 tablet by mouth two times daily 2014 METRONIDAZOLE 13838578082 No Longer Active Nilam Raida Ac tive ZITHROMAX 250 MG ORAL TABLET 2 po today, then 1 po q days 2-5 20 06/08/16 AZITHROMYCIN 71989434852 No Longer Active Arie Casper MD Active VITAMINS 0.8 MG ORAL TABLET take 1 tab po qday [id number] 60012542076 No Longer Active Arie Casper MD Active IBUPROFEN 800 MG ORAL TABLET take one po Q 8 hours 201 02/01/16 IBUPROFEN 65921386162 No Longer Active Arie Casper MD Acti ve [facility] TUSSIN COUGH/COLD CF 5-10-100 MG/5ML ORAL LIQUID 2 teasp oons every 4 hours [id number] 35077105580 No Longer Active Blaine Casper MD Active COMTREX COLD/COUGH DAY/NITE MS 5-2-10-325 MG ORAL 2 caps deja ry 4 hours [id number] 77429413516 No Longer Active Landon Casper MD Active CHLORASEPTIC MAX SORE THROAT 15-10 MG MOUTH/THROAT LOZENGE 1 every 2 hours prn BENZOCAINE-MENTHOL 90087557943 No Longer Active Arie Casper MD Active PREDNISONE 20 MG ORAL TABLET 2 tabs daily for 3 days, 1 tab daily for 3 days, 1/2 tab daily for 2 days PREDNISONE 41659062919 No Longer Active Jose Zhong MD Active AZITHROMYCIN 250 MG ORAL TABLET 2 po qd x 1 day, then 1 po q d x 4 days AZITHROMYCIN 28330316736 No Longer Active Jose Mcwilliams MD Active ZOFRAN ODT 4 MG ORAL TABLET DISINTEGRATING 1 po q6hr PRN Nausea ONDANSETRON 14390657772 No Longer Active Rich Rosales MD Active ZOFRAN 4 MG ORAL TABLET 1 tablet every 4 hours ONDANSETRON HCL 72284436179 No Longer Active Rich Rosaels MD Activ e MUCINEX 600 MG ORAL TABLET EXTENDED RELEASE 12 HOUR Ta ke 1-2 tablets every 12 hours GUAIFENESIN 51170781514 No Longer Active Rich Rosales MD Active BACTRIM 400-80 MG ORAL TABLET take one po BID SULFAMETHOXAZOLE-TRIMETHOPRIM 63127708154 No Longer Active Abelardo HERNANDEZ Active AZITHROMYCIN 500 MG ORAL TABLET 1 PO q day x 6 days 03/02/23 AZITHROMYCIN 58881802337 No Longer Active Tin HERNANDEZ Activ e ZITHROMAX 250 MG ORAL TABLET 2 po today, then 1 po q days 2-5 20 10/03/08 AZITHROMYCIN 88155473261 No Longer Active Arie Casper MD Active ZITHROMAX 250 MG ORAL TABLET 2 po today, then 1 po q days 2-5 20 09/23/25 AZITHROMYCIN 91672498807 No Longer Active Arie Casper MD Active AMOXICILLIN 500 MG ORAL CAPSULE 1 tab by mouth 3 times daily 201 11/24/09 AMOXICILLIN 62027869843 No Longer Active Arie Casper MD Active BACTRIM DS 800-160 MG ORAL TABLET 1 tab by mouth twice daily 201 11/03/14 TRIMETHOPRIM-SULFAMETHOXAZOLE 75065581013 No Longer Active Fozia Casper MD Active AMOXICILLIN 500 MG ORAL TABLET take 1 tab po TID 08/05 AMOXICILLIN 54308803672 No Longer Active Arie Casper MD Acti ve BACTRIM DS 800-160 MG ORAL TABLET 1 tab by mouth twice daily 201 11/03/14 BACTRIM DS 800-160 MG ORAL TABLET 860692 TRIMETHOPRIM-SULFAMETHOXAZOLE Inactive MUCINEX 600 MG ORAL TABLET EXTENDED RELEASE 12 HOUR Ta ke 1-2 tablets every 12 hours MUCINEX 600 MG ORAL TABLET EXTENDED RELEA SE 12 HOUR GUAIFENESIN Inactive ZOFRAN 4 MG ORAL TABLET 1 tablet every 4 hours ZOFRAN 4 MG ORAL TABLET 907674 ONDANSETRON HCL Inactive ZOFRAN ODT 4 MG ORAL TABLET DISINTEGRATING 1 po q6hr PRN Nausea ZOFRAN ODT 4 MG ORAL TABLET DISINTEGRATING 691361 ONDAN SETRON Inactive CHLORASEPTIC MAX SORE THROAT 15-10 MG MOUTH/THROAT LOZENGE 1 every 2 hours prn CHLORASEPTIC MAX SORE THROAT 15-10 MG MOUTH/THROAT LOZENGE BENZOCAINE-MENTHOL Inactive COMTREX COLD/COUGH DAY/NITE MS 5-2-10-325 MG ORAL 2 caps deja ry 4 hours COMTREX COLD/COUGH DAY/NITE MS 5-2-10-325 MG ORA L [id number] Inactive [facility] TUSSIN COUGH/COLD CF 5-10-100 MG/5ML ORAL LIQUID 2 teasp oons every 4 hours [facility] TUSSIN COUGH/COLD CF 5-10-100 MG/5ML ORAL LI QUID [id number] Inactive IBUPROFEN 800 MG ORAL TABLET take one po Q 8 hours 201 02/01/16 IBUPROFEN 800 MG ORAL TABLET 171713 IBUPROFEN Inactive VITAMINS 0.8 MG ORAL TABLET take 1 tab po qday VITAMINS 0.8 MG ORAL TABLET [id number] E-FA Inactive TESSALON PERLES 100 MG ORAL CAPSULE 1 tablet by mouth 3 times da cory TESSALON PERLES 100 MG ORAL CAPSULE 527639 BENZONATATE Inactive AMOXICILLIN 500 MG ORAL CAPSULE 1 tab by mouth 3 times daily 201 02/21/05 AMOXICILLIN 500 MG ORAL CAPSULE 952176 AMOXICILLIN Inactive GUAIFENESIN-CODEINE 100-10 MG/5ML ORAL SYRUP 2 tsp every 6 hours prn GUAIFENESIN-CODEINE 100-10 MG/5ML ORAL SYRUP 397507 GUAIFENESIN-CODEINE Inactive VICKS DAYQUIL SEVERE COLD/FLU TABLET 1 tab every 6 hours prn 201 02/22/17 VICKS DAYQUIL SEVERE COLD/FLU TABLET PHENYLEPHRI [id number] TABS Inactive BACTRIM DS 800-160 MG ORAL TABLET 1 twice a day 05/30 BACTRIM DS 800-160 MG ORAL TABLET 397180 SULFAMETHOXAZOLE-TRIMETHOPRIM Inactiv e PROMETHAZINE HCL 25 MG ORAL TABLET 1 four times a day as nee ded for vomiting PROMETHAZINE HCL 25 MG ORAL TABLET 532635 PROMETHAZINE HCL Inactive ZYRTEC ALLERGY 10 MG ORAL CAPSULE 1 po qd ZYRTEC ALLERGY 10 MG ORAL CAPSULE CETIRIZINE HCL Inactive MACROBID 100 MG ORAL CAPSULE 1 cap by mouth twice daily MACROBID 100 MG ORAL CAPSULE 8790194 NITROFURANTOIN MONOHYD MACRO In active LOMOTIL 2.5-0.025 MG ORAL TABLET 1 to 2 four times a day as needed for diarrhea LOMOTIL 2.5-0.025 MG ORAL TABLET 0378136 DIPHENOXYLATE-ATROPINE Inactive CYCLOBENZAPRINE HCL 10 MG ORAL TABLET 1/2 - 1 tablet b y mouth three times daily as needed for muscle spasm/pain CYCLOBEN ZAPRINE HCL 10 MG ORAL TABLET 559302 CYCLOBENZAPRINE HCL Inactive AMOXICILLIN 500 MG ORAL TABLET 2 tabs twice a day for 10 days 07/09/11 AMOXICILLIN 500 MG ORAL TABLET 296608 AMOXICILLIN I nactive LOMOTIL 2.5-0.025 MG ORAL TABLET 1 to 2 four times a day as needed for diarrhea LOMOTIL 2.5-0.025 MG ORAL TABLET 3773473 DIPHENOXYLATE-ATROPINE Inactive ZOFRAN 4 MG ORAL TABLET 1 TAB PO Q 6 HRS PRN NAUSEA 07/10/15 ZOFRAN 4 MG ORAL TABLET 653305 ONDANSETRON HCL Inactive CITRATE OF MAGNESIA ORAL SOLUTION 1 bottle today for constipatio n CITRATE OF MAGNESIA ORAL SOLUTION 1967835 MAGNESIUM CITR ATE Inactive PROMETHAZINE HCL 12.5 MG ORAL TABLET 1 tablet by mouth every 6 hours as needed for nausea/vomiting PROMETHAZINE HCL 12.5 MG ORA L TABLET 830775 PROMETHAZINE HCL Inactive PREDNISONE 20 MG ORAL TABLET 1 tablet twice daily for 2 days, then 1 tablet once daily for 2 days PREDNISONE 20 MG ORAL TABLET 606310 PREDNISONE Inactive ALPRAZOLAM 0.25 MG ORAL TABLET 1 tablet by mouth every 8 hours as needed for stress ALPRAZOLAM 0.25 MG ORAL TABLET 503521 ALPRA ZOLAM Inactive FLONASE 50 MCG/ACT NASAL SUSPENSION 1 spray each nostr il twice daily for allergies and runny nose until gone FLON ASE 50 MCG/ACT NASAL SUSPENSION 6238410 FLUTICASONE PROPIONATE Inactive PREDNISONE 20 MG ORAL TABLET 1 tablet daily for airway inflammat ion PREDNISONE 20 MG ORAL TABLET 500449 PREDNISONE Arlen ctive NAPROXEN 500 MG ORAL TABLET Take 1 tab BID NAPROXEN 500 MG ORAL TABLET 401420 NAPROXEN Inactive ZOLOFT 50 MG ORAL TABLET 1 tablet by mouth daily 12/08 ZOLOFT 50 MG ORAL TABLET 898795 SERTRALINE HCL Inactive LOMOTIL 2.5-0.025 MG ORAL TABLET 1 tab po four times a day as needed for diarrhea LOMOTIL 2.5-0.025 MG ORAL TABLET 7028467 DIPHENOXYLATE-ATROPINE Inactive CETIRIZINE HCL 10 MG ORAL TABLET 1 po qd PRN Allergies CETIRIZINE HCL 10 MG ORAL TABLET 4723175 CETIRIZINE HCL Inactiv e TUSSIONEX PENNKINETIC ER 10-8 MG/5ML ORAL SUSPENSION E XTENDED RELEASE 5ml po q12hr PRN Cough TUSSIONEX PENNKINETI C ER 10-8 MG/5ML ORAL SUSPENSION EXTENDED RELEASE HYDROCOD POLST-CHLORPHEN POLST I nactive NEXPLANON IMPLANT right arm subcutaneously NEXPLANON IMPLANT ETONOGESTREL IMPL Inactive PROTONIX 40 MG ORAL TABLET DELAYED RELEASE 1 po q a.m. PROTONIX 40 MG ORAL TABLET DELAYED RELEASE 726849 PANTOPRAZOLE SODI UM Inactive CHERATUSSIN AC 100-10 MG/5ML ORAL SYRUP 1 tsp by mouth every 4 hours as needed for cough CHERATUSSIN AC 100-10 MG/5ML ORAL SYRUP 9 55558 GUAIFENESIN-CODEINE Inactive GUAIFENESIN DM 400-20 MG ORAL TABLET 1 pill by mouth t wice daily, if needed for cough GUAIFENESIN DM 400-20 MG ORAL TABLET 1140 021 DEXTROMETHORPHAN-GUAIFENESIN Inactive TUSSIONEX PENNKINETIC ER 10-8 MG/5ML ORAL SUSPENSION E XTENDED RELEASE 5ml po q12hr PRN Cough TUSSIONEX PENNKINETI C ER 10-8 MG/5ML ORAL SUSPENSION EXTENDED RELEASE HYDROCOD POLST-CHLORPHEN POLST I nactive AMOXICILLIN 500 MG ORAL TABLET take 1 tab po TID 08/05 AMOXICILLIN 500 MG ORAL TABLET 811641 AMOXICILLIN Inactive AMOXICILLIN 500 MG ORAL CAPSULE 1 tab by mouth 3 times daily 201 11/24/09 AMOXICILLIN 500 MG ORAL CAPSULE 253487 AMOXICILLIN Inactive ZITHROMAX 250 MG ORAL TABLET 2 po today, then 1 po q days 2-5 20 09/23/25 ZITHROMAX 250 MG ORAL TABLET 440409 AZITHROMYCIN Arlen ctive ZITHROMAX 250 MG ORAL TABLET 2 po today, then 1 po q days 2-5 20 10/03/08 ZITHROMAX 250 MG ORAL TABLET 328112 AZITHROMYCIN Arlen ctive AZITHROMYCIN 500 MG ORAL TABLET 1 PO q day x 6 days 03/02/23 AZITHROMYCIN 500 MG ORAL TABLET 5412636 AZITHROMYCIN Inactive BACTRIM 400-80 MG ORAL TABLET take one po BID BACTRIM 400- 80 MG ORAL TABLET 871254 SULFAMETHOXAZOLE-TRIMETHOPRIM Inactive AZITHROMYCIN 250 MG ORAL TABLET 2 po qd x 1 day, then 1 po q d x 4 days AZITHROMYCIN 250 MG ORAL TABLET 260951 AZITHROMY ALLISON Inactive PREDNISONE 20 MG ORAL TABLET 2 tabs daily for 3 days, 1 tab daily for 3 days, 1/2 tab daily for 2 days PREDNISONE 20 MG ORAL T ABLET 557771 PREDNISONE Inactive ZITHROMAX 250 MG ORAL TABLET 2 po today, then 1 po q days 2-5 20 06/08/16 ZITHROMAX 250 MG ORAL TABLET 093169 AZITHROMYCIN Mather ctive FLAGYL 500 MG ORAL TABLET 1 tablet by mouth two times daily 2014 FLAGYL 500 MG ORAL TABLET 299598 METRONIDAZOLE Inacti ve AUGMENTIN 875-125 MG ORAL TABLET 1 tab by mouth twice daily with food AUGMENTIN 875-125 MG ORAL TABLET 661375 AMOXICIL ELSA-POT CLAVULANATE Inactive NAPROXEN 500 MG ORAL TABLET one tab PO BID NAPROXEN 500 MG ORAL TABLET 131940 NAPROXEN Inactive PREDNISONE 20 MG ORAL TABLET 2 tabs daily for 3 days, 1 tab daily for 3 days, 1/2 tab daily for 2 days PREDNISONE 20 MG ORAL T ABLET 753862 PREDNISONE Inactive AZITHROMYCIN 250 MG ORAL TABLET 2 po qd x 1 day, then 1 po q d x 4 days AZITHROMYCIN 250 MG ORAL TABLET 436485 AZITHROMY ALLISON Inactive PREDNISONE 20 MG ORAL TABLET 2 tabs daily for 3 days, 1 tab daily for 3 days, 1/2 tab daily for 2 days PREDNISONE 20 MG ORAL T ABLET 993344 PREDNISONE Inactive ZITHROMAX Z-EMIL 250 MG ORAL TABLET 2 today, then 1 daily for 4 d ays ZITHROMAX Z-EMIL 250 MG ORAL TABLET 672049 AZITHROMYCIN Inactive CEFDINIR 300 MG ORAL CAPSULE 1 po BID x 10 days 12/18 CEFDINIR 300 MG ORAL CAPSULE 918571 CEFDINIR Inactive CEFDINIR 300 MG ORAL CAPSULE 1 po BID x 10 days CEFDINIR 300 MG ORAL CAPSULE 100908 CEFDINIR Inactive PREDNISONE 20 MG ORAL TABLET 2 tabs daily for 3 days, 1 tab daily for 3 days, 1/2 tab daily for 2 days PREDNISONE 20 MG ORAL T ABLET 341794 PREDNISONE Inactive BACTRIM DS 800-160 MG ORAL TABLET 1 tab by mouth twice daily 201 05/02/30 BACTRIM DS 800-160 MG ORAL TABLET 598063 TRIMETHOPRIM-SULFAMETHOXAZOLE Inactive ZITHROMAX Z-EMIL 250 MG ORAL TABLET 2 today, then 1 daily for 4 d ays ZITHROMAX Z-EMIL 250 MG ORAL TABLET 844362 AZITHROMYCIN Inactive TAMIFLU 75 MG ORAL CAPSULE 1 po BID x 5 days 0 TAMIFLU 75 MG ORAL CAPSULE 611630 OSELTAMIVIR PHOSPHATE Inactive CEFDINIR 300 MG ORAL CAPSULE 1 po BID x 10 days 01/03 CEFDINIR 300 MG ORAL CAPSULE 619638 CEFDINIR Inactive ZITHROMAX Z-EMIL 250 MG TABS Take two tablets today and then 1 tablet daily for 4 days ZITHROMAX Z-EMIL 250 MG TABS 448829 AZITHROM YCIN Inactive AMOXICILLIN 875 MG ORAL TABLET 1 tab by mouth twice daily AMOXICILLIN 875 MG ORAL TABLET 174678 AMOXICILLIN Inactive Advance Directives Directive Description Start [...] d blood pressure, diastolic 70 mm[Hg] BP kenndey blood pressure, systolic 113 mm[Hg] BP sys [...] Negative Encounters Code Encounter Date Provider Facility CPT-63200 [id number] Vst-Est Level III 09:41:31 CDT Arie Casper MD [facility] CPT-28506 [id number] Vst-Est Level III 18:20:11 CDT Me lobito Russ APRN [facility] CPT-59061 [id number] Vst-Est Level III 17:21:41 CDT Me lobito Russ [facility] CPT-47966 [id number] Vst-Est Level IV 13:30:22 C DT Arie Casper MD [facility] CPT-69165 Level 4 Est. Patient 13:05:26 CDT Myrna Real Bernabe maldonado MD [facility] [place]-66904 [id number] Vst-Est Level IV 20:50:21 C DT Arie Casper MD [facility] CPT-26247 Level 3 Est. Patient 11:49:34 CONTINUOUS CONVEYOR SCREEN DRIER Jessica boyd [facility] CPT-00675 Level 3 Est. Patient 14:55:50 CONTINUOUS CONVEYOR SCREEN DRIER Jose Zhong MD [facility] CPT-70435 Level 3 Est. Patient 10:21:41 CONTINUOUS CONVEYOR SCREEN DRIER Arie mcqueen MD [facility] CPT-78463 Level 3 Est. Patient 11:35:15 CONTINUOUS CONVEYOR SCREEN DRIER Arie mcqueen MD [facility] CPT-61722 Level 3 Est. Patient 15:40:28 CDT Brii Are [facility] [place] CPT-38111 Level 3 Est. Patient 16:40:36 CDT Arie mcqueen MD [facility] CPT-92742 Level 4 Est. Patient 15:29:22 CONTINUOUS CONVEYOR SCREEN DRIER Arie mcqueen MD [facility] CPT-14211 Level 3 Est. Patient 15:18:16 CONTINUOUS CONVEYOR SCREEN DRIER Jono black DO [facility] CPT-24483 Level 4 Est. Patient 12:08:40 CONTINUOUS CONVEYOR SCREEN DRIER Brii Are [facility] [place] CPT-47237 Level 3 Est. Patient 09:24:42 CDT Brii Are [facility] [place] CPT-62643 Level 3 Est. Patient 09:12:56 CDT Arie mcqueen MD [facility] CPT-96734 Level 3 Est. Patient 16:40:54 CDT Jose Zhong MD [facility] CPT-75737 Level 2 Est. Patient 13:01:13 CDT Brii Yepez ll [facility] CPT-70194 Level 3 Est. Patient 11:55:30 CONTINUOUS CONVEYOR SCREEN DRIER Jono black DO [facility] CPT-32327 Level 3 Est. Patient 09:52:36 CONTINUOUS CONVEYOR SCREEN DRIER Brii Yepez ll [facility] CPT-22480 Level 3 Est. Patient 16:25:33 CONTINUOUS CONVEYOR SCREEN DRIER Rich Rosales MD Formerly named [facility]-44743 Level 3 Est. Patient 20:33:55 CDT Arie mcqueen MD [facility] CPT-18570 Level 3 Est. Patient 14:18:20 CDT Rich Rosales MD [facility] CPT-77732 Level 4 Est. Patient 09:34:31 CDT Arie mcqueen MD [facility] CPT-85473 Level 3 Est. Patient 09:08:55 CONTINUOUS CONVEYOR SCREEN DRIER Liliana vincent MD PhD [facility] [place]-78176 Level 3 Est. Patient 16:44:07 CONTINUOUS CONVEYOR SCREEN DRIER Arie mcqueen MD [facility] CPT-86629 Level 3 Est. Patient 10:44:27 CDT Arie mcqueen MD [facility] CPT-40514 Level 3 Est. Patient 08:55:41 CDT Jose Zhong MD [facility] CPT-57157 Level 3 Est. Patient 18:37:31 CDT Liliana vincent MD PhD [facility]-62006 Level 3 Est. Patient 14:28:23 CDT Abelardo HERNANDEZ [facility] CPT-37750 Level 3 Est. Patient 15:18:13 CONTINUOUS CONVEYOR SCREEN DRIER Arie mcqueen MD [facility] CPT-64768 Level 3 Est. Patient 10:11:29 CONTINUOUS CONVEYOR SCREEN DRIER Arie mcqueen MD [facility] CPT-58543 Level 3 Est. Patient 10:55:57 CONTINUOUS CONVEYOR SCREEN DRIER Jono Sarika Eliot sofia DO [facility] CPT-32816 Level 3 Est. Patient 17:29:05 CDT Arie mcqueen MD [facility] Procedures Code Procedure Name Date Entry Date Standard Desc ription CPT-30612 Sono Soft Tissue Head and Neck - XRAY US E ONLY 17:10:14 CDT CPT-96757 Ear Wash with irrigation 17:21:41 CDT 07/04 CPT-83918 Nexplanon Removal 15:40:28 CDT CPT-34448 Sono transvag pelvis non OB uterus ovari es cervix - XRAY USE ONLY 08:58:14 CONTINUOUS CONVEYOR SCREEN DRIER CPT-48645 UA w micro - LAB USE ONLY 16:04:56 CONTINUOUS CONVEYOR SCREEN DRIER 2015 CPT-73686 Wet Prep/GEN - LAB USE ONLY 16:04:56 CONTINUOUS CONVEYOR SCREEN DRIER 20 08/10/29 CPT-98879 First Vx - Ix admin via ID I M or jet injects without counseling by physician 16:57:10 CDT CPT-08485 Fluzone Preservative Free Intramuscular Suspension 16:57:10 CDT CPT-J0696 Rocephin 1000 mg (Ceftriaxone) 11:49:23 CDT CPT-J1040 Depo Medrol 80 mg (Methyl Prednisolone A cetate) 11:49:23 CDT CPT-J1100 Decadron 8mg (Dexamethasone) 11:49:23 CDT 2 CPT-62361 Abx/Therapy Injection 11:49:23 CDT CPT-48359 Abx/Therapy Injection 11:49:23 CDT CPT-26674 Abd compl w upright 09:07:26 CONTINUOUS CONVEYOR SCREEN DRIER CPT-58728 Ear Wash 16:12:47 CONTINUOUS CONVEYOR SCREEN DRIER CPT-OV Office Visit 11:12:01 CDT CPT-OV Office Visit 15:30:23 CDT CPT-75690 Sono pelvis non OB uterus ovaries cervix 15:50:44 CDT CPT-10829 Hand comp min 3V 16:42:32 CDT CPT-44029 Abd compl w upright 12:17:01 CDT CPT-74783 Nexplanon Placement 15:07:39 CONTINUOUS CONVEYOR SCREEN DRIER CPT-66435 Removal of IUD 15:07:39 CONTINUOUS CONVEYOR SCREEN DRIER CPT-09116 TB Tubersol 12:09:32 CDT CPT-21163 TB Tubersol 13:55:43 CDT
--- OUTSIDE RECORDS SUMMARY | 2020-03-03 07:52 | XMS REPORT | Clinical Summary ---
Author Author Admin, Diamante Marcelo Organization [facility] Address Unknown Phone Unavailable Allergies, Adverse [...] with depression 300.4 Active Brii Ramirez l CORE PILER Dysthymic disorder URI 465.9 Active Jono Gagnon [...] lymph node 785.6 Active Brii Are ll CORE PILER Enlargement of lymph nodes Influenza Vaccination for [...] Estrada MD PhD Vaginal discharge ICD-623.5 Inactive Lilinaa lares MD PhD Urinary frequency ICD-788.41 Inactive Jose Zhong MD Vaginal bleeding ICD-623.8 Inactive Jose Mcwilliams MD Influenza Vaccination for Prophylaxis ICD-V04.81 6 Inactive Carole HOPKINS Influenza Vaccination for Prophylaxis ICD-V04.81 8 Inactive Nilam Plattkatie Medication List Medication Instructions Start Date Stop Date Generic Name NDC Status Provider Patient Instruction KEFLEX 500 MG ORAL CAPSULE 1 po tid CEPHALEXIN [id number] Active Brii Russ APRN Active PROTONIX 40 MG ORAL TABLET DELAYED RELEASE 1 pill by m outh daily, for acid reflux PANTOPRAZOLE SODIUM 91099961455 Active Roseann Crawford Active AMOXICILLIN 875 MG ORAL TABLET 1 tab by mouth twice daily 1 AMOXICILLIN 64467865512 No Longer Active Brii Russ APRN Active ALPRAZOLAM 0.25 MG ORAL TABLET 1 tablet by mouth twice a day as needed for stress/anxiety ALPRAZOLAM 27881889157 Active KELLIE Escobar Active ESCITALOPRAM OXALATE 10 MG ORAL TABLET take 1 tab po qhs for mod 20 10/04/18 ESCITALOPRAM OXALATE 66130180599 Active Arie Casper MD Active TUSSIONEX PENNKINETIC ER 10-8 MG/5ML ORAL SUSPENSION E XTENDED RELEASE 5ml po q12hr PRN Cough HYDROCOD POLST-CHLORPHEN POLST 5 7628983378 No Longer Active Myrna Roberto MD Active ZITHROMAX Z-EMIL 250 MG TABS Take two tablets today and then 1 tablet daily for 4 days AZITHROMYCIN 57189376617 No Longer Active Flaco Rosales MD Active GUAIFENESIN DM 400-20 MG ORAL TABLET 1 pill by mouth t wice daily, if needed for cough DEXTROMETHORPHAN-GUAIFENESIN 18849486047 No Longer Active Rich Rosales MD Active CEFDINIR 300 MG ORAL CAPSULE 1 po BID x 10 days CEFDINIR 99790287909 No Longer Active Jillina Frazell CORE PILER Active CHERATUSSIN AC 100-10 MG/5ML ORAL SYRUP 1 tsp by mouth every 4 hours as needed for cough GUAIFENESIN-CODEINE 26890478167 No Longe r Active Jessica Faithnaomi CORE PILER Active TAMIFLU 75 MG ORAL CAPSULE 1 po BID x 5 days 0 OSELTAMIVIR PHOSPHATE 29897641714 No Longer Active Jose Zhong MD Activ e ZITHROMAX Z-EMIL 250 MG ORAL TABLET 2 today, then 1 daily for 4 d ays AZITHROMYCIN 09431599325 No Longer Active Arie Casper MD Active PROTONIX 40 MG ORAL TABLET DELAYED RELEASE 1 po q a.m. PANTOPRAZOLE SODIUM 91333121715 No Longer Active Arie Casper MD Active BACTRIM DS 800-160 MG ORAL TABLET 1 tab by mouth twice daily 201 05/02/30 TRIMETHOPRIM-SULFAMETHOXAZOLE 38843147901 No Longer Active R [facility] Active NEXPLANON IMPLANT right arm subcutaneously ETONOGESTREL IMPL 28280303106 No Longer Active Brii Arell CORE PILER Active TUSSIONEX PENNKINETIC ER 10-8 MG/5ML ORAL SUSPENSION E XTENDED RELEASE 5ml po q12hr PRN Cough HYDROCOD POLST-CHLORPHEN POLST 5 7606277435 No Longer Active Brii Arell CORE PILER Active CETIRIZINE HCL 10 MG ORAL TABLET 1 po qd PRN Allergies CETIRIZINE HCL 57516622889 No Longer Active Brii Arell CORE PILER Activ e PREDNISONE 20 MG ORAL TABLET 2 tabs daily for 3 days, 1 tab daily for 3 days, 1/2 tab daily for 2 days PREDNISONE 30956079905 No Longer Active Arie Casper MD Active LOMOTIL 2.5-0.025 MG ORAL TABLET 1 tab po four times a day as needed for diarrhea DIPHENOXYLATE-ATROPINE 84509981707 No Lo nger Active Arie Casper MD Active ZOLOFT 50 MG ORAL TABLET 1 tablet by mouth daily 12/08 SERTRALINE HCL 12542366411 No Longer Active Arie Casper MD Ac tive NAPROXEN 500 MG ORAL TABLET Take 1 tab BID NAPR OXEN 33840452951 No Longer Active Arie Casper MD Active CEFDINIR 300 MG ORAL CAPSULE 1 po BID x 10 days CEFDINIR 20536051167 No Longer Active Brii Russ APRN Active PREDNISONE 20 MG ORAL TABLET 1 tablet daily for airway inflammat ion PREDNISONE 16174101014 No Longer Active Brii Russ APRN A ctive CEFDINIR 300 MG ORAL CAPSULE 1 po BID x 10 days CEFDINIR 36232288976 No Longer Active Jono Gagnon DO Active FLONASE 50 MCG/ACT NASAL SUSPENSION 1 spray each nostr il twice daily for allergies and runny nose until gone FLUT ICASONE PROPIONATE 77193002528 No Longer Active Jono Gagnon DO Active ALPRAZOLAM 0.25 MG ORAL TABLET 1 tablet by mouth every 8 hours as needed for stress ALPRAZOLAM 29767757697 No Longer Active Jono Gagnon DO Active ZITHROMAX Z-EMIL 250 MG ORAL TABLET 2 today, then 1 daily for 4 d ays AZITHROMYCIN 20790436605 No Longer Active Arie Casper MD Active PREDNISONE 20 MG ORAL TABLET 2 tabs daily for 3 days, 1 tab daily for 3 days, 1/2 tab daily for 2 days PREDNISONE 39257608624 No Longer Active Brii Russ APRN Active PREDNISONE 20 MG ORAL TABLET 1 tablet twice daily for 2 days, then 1 tablet once daily for 2 days PREDNISONE 43122319088 No Longer Active Brii Russ APRN Active PROMETHAZINE HCL 12.5 MG ORAL TABLET 1 tablet by mouth every 6 hours as needed for nausea/vomiting PROMETHAZINE HCL 93625350686 No L onger Active Jono Gagnon DO Active CITRATE OF MAGNESIA ORAL SOLUTION 1 bottle today for constipatio n MAGNESIUM CITRATE 24195899849 No Longer Active Jono Gagnon DO Active ZOFRAN 4 MG ORAL TABLET 1 TAB PO Q 6 HRS PRN NAUSEA 07/10/15 ONDANSETRON HCL 53871026072 No Longer Active Brii Russ APRN Acti ve LOMOTIL 2.5-0.025 MG ORAL TABLET 1 to 2 four times a day as needed for diarrhea DIPHENOXYLATE-ATROPINE 75879744105 No Longer Active January Russ APRN Active AMOXICILLIN 500 MG ORAL TABLET 2 tabs twice a day for 10 days 07/09/11 AMOXICILLIN 44398576928 No Longer Active Brii Russ APRN Active CYCLOBENZAPRINE HCL 10 MG ORAL TABLET 1/2 - 1 tablet b y mouth three times daily as needed for muscle spasm/pain CYCLOBENZAPRINE HCL 00156151516 No Longer Active Arie Casper MD Active LOMOTIL 2.5-0.025 MG ORAL TABLET 1 to 2 four times a day as needed for diarrhea DIPHENOXYLATE-ATROPINE 93706272439 No Longer Active Fozia Casper MD Active MACROBID 100 MG ORAL CAPSULE 1 cap by mouth twice daily NITROFURANTOIN MONOHYD MACRO 00698553195 No Longer Active Arie Casper MD Active ZYRTEC ALLERGY 10 MG ORAL CAPSULE 1 po qd CE TIRIZINE HCL 99921906613 No Longer Active Arie Casper MD Active AZITHROMYCIN 250 MG ORAL TABLET 2 po qd x 1 day, then 1 po q d x 4 days AZITHROMYCIN 66169813178 No Longer Active Jessica salgado APRN Active PREDNISONE 20 MG ORAL TABLET 2 tabs daily for 3 days, 1 tab daily for 3 days, 1/2 tab daily for 2 days PREDNISONE 26351307674 No Longer Active Jessica Heaton APRN Active PROMETHAZINE HCL 25 MG ORAL TABLET 1 four times a day as nee ded for vomiting PROMETHAZINE HCL 32994640740 No Longer Active Myrna Roberto MD Active BACTRIM DS 800-160 MG ORAL TABLET 1 twice a day 05/30 SULFAMETHOXAZOLE-TRIMETHOPRIM 02709576216 No Longer Active Myrna Roberto MD Active VICKS DAYQUIL SEVERE COLD/FLU TABLET 1 tab every 6 hours prn 201 02/22/17 [id number] TABS 75757252130 No Longer Active Chris Roberto MD Active GUAIFENESIN-CODEINE 100-10 MG/5ML ORAL SYRUP 2 tsp every 6 hours prn GUAIFENESIN-CODEINE 87693971423 No Longer Active Myrna Roberto MD Active NAPROXEN 500 MG ORAL TABLET one tab PO BID NAPR OXEN 01901766124 No Longer Active Myrna Roberto MD Active AUGMENTIN 875-125 MG ORAL TABLET 1 tab by mouth twice daily with food AMOXICILLIN-POT CLAVULANATE 07963197441 No Longer Act zaid Liliana Estrada MD PhD Active AMOXICILLIN 500 MG ORAL CAPSULE 1 tab by mouth 3 times daily 201 02/21/05 AMOXICILLIN 98389718016 No Longer Active Liliana Estrada MD PhD Active TESSALON PERLES 100 MG ORAL CAPSULE 1 tablet by mouth 3 times da cory BENZONATATE 59193415850 No Longer Active Liliana Estrada MD PhD Active FLAGYL 500 MG ORAL TABLET 1 tablet by mouth two times daily 2014 METRONIDAZOLE 79728362309 No Longer Active Nilam Raida Ac tive ZITHROMAX 250 MG ORAL TABLET 2 po today, then 1 po q days 2-5 20 06/08/16 AZITHROMYCIN 78489975150 No Longer Active Arie Casper MD Active VITAMINS 0.8 MG ORAL TABLET take 1 tab po qday [id number] 59177359550 No Longer Active Arie Casper MD Active IBUPROFEN 800 MG ORAL TABLET take one po Q 8 hours 201 02/01/16 IBUPROFEN 05499121941 No Longer Active Arie Casper MD Acti ve [facility] TUSSIN COUGH/COLD CF 5-10-100 MG/5ML ORAL LIQUID 2 teasp oons every 4 hours [id number] 66544054568 No Longer Active Blaine Casper MD Active COMTREX COLD/COUGH DAY/NITE MS 5-2-10-325 MG ORAL 2 caps deja ry 4 hours [id number] 43525601963 No Longer Active Landon Casper MD Active CHLORASEPTIC MAX SORE THROAT 15-10 MG MOUTH/THROAT LOZENGE 1 every 2 hours prn BENZOCAINE-MENTHOL 94340624436 No Longer Active Arie Casper MD Active PREDNISONE 20 MG ORAL TABLET 2 tabs daily for 3 days, 1 tab daily for 3 days, 1/2 tab daily for 2 days PREDNISONE 95778256567 No Longer Active Jose Zhong MD Active AZITHROMYCIN 250 MG ORAL TABLET 2 po qd x 1 day, then 1 po q d x 4 days AZITHROMYCIN 19178578946 No Longer Active Jose Mcwilliams MD Active ZOFRAN ODT 4 MG ORAL TABLET DISINTEGRATING 1 po q6hr PRN Nausea ONDANSETRON 07354063645 No Longer Active Rich Rosales MD Active ZOFRAN 4 MG ORAL TABLET 1 tablet every 4 hours ONDANSETRON HCL 94705933243 No Longer Active Rich Rosales MD Activ e MUCINEX 600 MG ORAL TABLET EXTENDED RELEASE 12 HOUR Ta ke 1-2 tablets every 12 hours GUAIFENESIN 21581728354 No Longer Active Rich Rosales MD Active BACTRIM 400-80 MG ORAL TABLET take one po BID SULFAMETHOXAZOLE-TRIMETHOPRIM 06060849096 No Longer Active Abelardo HERNANDEZ Active AZITHROMYCIN 500 MG ORAL TABLET 1 PO q day x 6 days 03/02/23 AZITHROMYCIN 58265182739 No Longer Active Tin HERNANDEZ Activ e ZITHROMAX 250 MG ORAL TABLET 2 po today, then 1 po q days 2-5 20 10/03/08 AZITHROMYCIN 88211580153 No Longer Active Arie Casper MD Active ZITHROMAX 250 MG ORAL TABLET 2 po today, then 1 po q days 2-5 20 09/23/25 AZITHROMYCIN 65957464922 No Longer Active Arie Casper MD Active AMOXICILLIN 500 MG ORAL CAPSULE 1 tab by mouth 3 times daily 201 11/24/09 AMOXICILLIN 80084714973 No Longer Active Arie Casper MD Active BACTRIM DS 800-160 MG ORAL TABLET 1 tab by mouth twice daily 201 11/03/14 TRIMETHOPRIM-SULFAMETHOXAZOLE 39257396485 No Longer Active Fozia Casper MD Active AMOXICILLIN 500 MG ORAL TABLET take 1 tab po TID 08/05 AMOXICILLIN 33117593026 No Longer Active Arie Casper MD Acti ve BACTRIM DS 800-160 MG ORAL TABLET 1 tab by mouth twice daily 201 11/03/14 BACTRIM DS 800-160 MG ORAL TABLET 807694 TRIMETHOPRIM-SULFAMETHOXAZOLE Inactive MUCINEX 600 MG ORAL TABLET EXTENDED RELEASE 12 HOUR Ta ke 1-2 tablets every 12 hours MUCINEX 600 MG ORAL TABLET EXTENDED RELEA SE 12 HOUR GUAIFENESIN Inactive ZOFRAN 4 MG ORAL TABLET 1 tablet every 4 hours ZOFRAN 4 MG ORAL TABLET 338456 ONDANSETRON HCL Inactive ZOFRAN ODT 4 MG ORAL TABLET DISINTEGRATING 1 po q6hr PRN Nausea ZOFRAN ODT 4 MG ORAL TABLET DISINTEGRATING 147021 ONDAN SETRON Inactive CHLORASEPTIC MAX SORE THROAT 15-10 MG MOUTH/THROAT LOZENGE 1 every 2 hours prn CHLORASEPTIC MAX SORE THROAT 15-10 MG MOUTH/THROAT LOZENGE BENZOCAINE-MENTHOL Inactive COMTREX COLD/COUGH DAY/NITE MS 5-2-10-325 MG ORAL 2 caps deja ry 4 hours COMTREX COLD/COUGH DAY/NITE MS 5-2-10-325 MG ORA L [id number] Inactive [facility] TUSSIN COUGH/COLD CF 5-10-100 MG/5ML ORAL LIQUID 2 teasp oons every 4 hours [facility] TUSSIN COUGH/COLD CF 5-10-100 MG/5ML ORAL LI QUID [id number] Inactive IBUPROFEN 800 MG ORAL TABLET take one po Q 8 hours 201 02/01/16 IBUPROFEN 800 MG ORAL TABLET 529454 IBUPROFEN Inactive VITAMINS 0.8 MG ORAL TABLET take 1 tab po qday VITAMINS 0.8 MG ORAL TABLET [id number] E-FA Inactive TESSALON PERLES 100 MG ORAL CAPSULE 1 tablet by mouth 3 times da cory TESSALON PERLES 100 MG ORAL CAPSULE 263006 BENZONATATE Inactive AMOXICILLIN 500 MG ORAL CAPSULE 1 tab by mouth 3 times daily 201 02/21/05 AMOXICILLIN 500 MG ORAL CAPSULE 507932 AMOXICILLIN Inactive GUAIFENESIN-CODEINE 100-10 MG/5ML ORAL SYRUP 2 tsp every 6 hours prn GUAIFENESIN-CODEINE 100-10 MG/5ML ORAL SYRUP 700811 GUAIFENESIN-CODEINE Inactive VICKS DAYQUIL SEVERE COLD/FLU TABLET 1 tab every 6 hours prn 201 02/22/17 VICKS DAYQUIL SEVERE COLD/FLU TABLET PHENYLEPHRI [id number]-APAP TABS Inactive BACTRIM DS 800-160 MG ORAL TABLET 1 twice a day 05/30 BACTRIM DS 800-160 MG ORAL TABLET 518753 SULFAMETHOXAZOLE-TRIMETHOPRIM Inactiv e PROMETHAZINE HCL 25 MG ORAL TABLET 1 four times a day as nee ded for vomiting PROMETHAZINE HCL 25 MG ORAL TABLET 594865 PROMETHAZINE HCL Inactive ZYRTEC ALLERGY 10 MG ORAL CAPSULE 1 po qd ZYRTEC ALLERGY 10 MG ORAL CAPSULE CETIRIZINE HCL Inactive MACROBID 100 MG ORAL CAPSULE 1 cap by mouth twice daily MACROBID 100 MG ORAL CAPSULE 2861657 NITROFURANTOIN MONOHYD MACRO In active LOMOTIL 2.5-0.025 MG ORAL TABLET 1 to 2 four times a day as needed for diarrhea LOMOTIL 2.5-0.025 MG ORAL TABLET 1872277 DIPHENOXYLATE-ATROPINE Inactive CYCLOBENZAPRINE HCL 10 MG ORAL TABLET 1/2 - 1 tablet b y mouth three times daily as needed for muscle spasm/pain CYCLOBEN ZAPRINE HCL 10 MG ORAL TABLET 096309 CYCLOBENZAPRINE HCL Inactive AMOXICILLIN 500 MG ORAL TABLET 2 tabs twice a day for 10 days 07/09/11 AMOXICILLIN 500 MG ORAL TABLET 820668 AMOXICILLIN I nactive LOMOTIL 2.5-0.025 MG ORAL TABLET 1 to 2 four times a day as needed for diarrhea LOMOTIL 2.5-0.025 MG ORAL TABLET 0235082 DIPHENOXYLATE-ATROPINE Inactive ZOFRAN 4 MG ORAL TABLET 1 TAB PO Q 6 HRS PRN NAUSEA 07/10/15 ZOFRAN 4 MG ORAL TABLET 610608 ONDANSETRON HCL Inactive CITRATE OF MAGNESIA ORAL SOLUTION 1 bottle today for constipatio n CITRATE OF MAGNESIA ORAL SOLUTION 0827126 MAGNESIUM CITR ATE Inactive PROMETHAZINE HCL 12.5 MG ORAL TABLET 1 tablet by mouth every 6 hours as needed for nausea/vomiting PROMETHAZINE HCL 12.5 MG ORA L TABLET 313680 PROMETHAZINE HCL Inactive PREDNISONE 20 MG ORAL TABLET 1 tablet twice daily for 2 days, then 1 tablet once daily for 2 days PREDNISONE 20 MG ORAL TABLET 816622 PREDNISONE Inactive ALPRAZOLAM 0.25 MG ORAL TABLET 1 tablet by mouth every 8 hours as needed for stress ALPRAZOLAM 0.25 MG ORAL TABLET 534482 ALPRA ZOLAM Inactive FLONASE 50 MCG/ACT NASAL SUSPENSION 1 spray each nostr il twice daily for allergies and runny nose until gone FLON ASE 50 MCG/ACT NASAL SUSPENSION 7857059 FLUTICASONE PROPIONATE Inactive PREDNISONE 20 MG ORAL TABLET 1 tablet daily for airway inflammat ion PREDNISONE 20 MG ORAL TABLET 785963 PREDNISONE Arlen ctive NAPROXEN 500 MG ORAL TABLET Take 1 tab BID NAPROXEN 500 MG ORAL TABLET 667751 NAPROXEN Inactive ZOLOFT 50 MG ORAL TABLET 1 tablet by mouth daily 12/08 ZOLOFT 50 MG ORAL TABLET 064327 SERTRALINE HCL Inactive LOMOTIL 2.5-0.025 MG ORAL TABLET 1 tab po four times a day as needed for diarrhea LOMOTIL 2.5-0.025 MG ORAL TABLET 2131939 DIPHENOXYLATE-ATROPINE Inactive CETIRIZINE HCL 10 MG ORAL TABLET 1 po qd PRN Allergies CETIRIZINE HCL 10 MG ORAL TABLET 8791509 CETIRIZINE HCL Inactiv e TUSSIONEX PENNKINETIC ER 10-8 MG/5ML ORAL SUSPENSION E XTENDED RELEASE 5ml po q12hr PRN Cough TUSSIONEX PENNKINETI C ER 10-8 MG/5ML ORAL SUSPENSION EXTENDED RELEASE HYDROCOD POLST-CHLORPHEN POLST I nactive NEXPLANON IMPLANT right arm subcutaneously NEXPLANON IMPLANT ETONOGESTREL IMPL Inactive PROTONIX 40 MG ORAL TABLET DELAYED RELEASE 1 po q a.m. PROTONIX 40 MG ORAL TABLET DELAYED RELEASE 246700 PANTOPRAZOLE SODI UM Inactive CHERATUSSIN AC 100-10 MG/5ML ORAL SYRUP 1 tsp by mouth every 4 hours as needed for cough CHERATUSSIN AC 100-10 MG/5ML ORAL SYRUP 9 18711 GUAIFENESIN-CODEINE Inactive GUAIFENESIN DM 400-20 MG ORAL TABLET 1 pill by mouth t wice daily, if needed for cough GUAIFENESIN DM 400-20 MG ORAL TABLET 1147 676 DEXTROMETHORPHAN-GUAIFENESIN Inactive TUSSIONEX PENNKINETIC ER 10-8 MG/5ML ORAL SUSPENSION E XTENDED RELEASE 5ml po q12hr PRN Cough TUSSIONEX PENNKINETI C ER 10-8 MG/5ML ORAL SUSPENSION EXTENDED RELEASE HYDROCOD POLST-CHLORPHEN POLST I nactive AMOXICILLIN 500 MG ORAL TABLET take 1 tab po TID 08/05 AMOXICILLIN 500 MG ORAL TABLET 065865 AMOXICILLIN Inactive AMOXICILLIN 500 MG ORAL CAPSULE 1 tab by mouth 3 times daily 201 11/24/09 AMOXICILLIN 500 MG ORAL CAPSULE 285062 AMOXICILLIN Inactive ZITHROMAX 250 MG ORAL TABLET 2 po today, then 1 po q days 2-5 20 09/23/25 ZITHROMAX 250 MG ORAL TABLET 020947 AZITHROMYCIN [place]len ctive ZITHROMAX 250 MG ORAL TABLET 2 po today, then 1 po q days 2-5 20 10/03/08 ZITHROMAX 250 MG ORAL TABLET 888543 AZITHROMYCIN Arlen ctive AZITHROMYCIN 500 MG ORAL TABLET 1 PO q day x 6 days 03/02/23 AZITHROMYCIN 500 MG ORAL TABLET 4028024 AZITHROMYCIN Inactive BACTRIM 400-80 MG ORAL TABLET take one po BID BACTRIM 400- 80 MG ORAL TABLET 876281 SULFAMETHOXAZOLE-TRIMETHOPRIM Inactive AZITHROMYCIN 250 MG ORAL TABLET 2 po qd x 1 day, then 1 po q d x 4 days AZITHROMYCIN 250 MG ORAL TABLET 991153 AZITHROMY ALLISON Inactive PREDNISONE 20 MG ORAL TABLET 2 tabs daily for 3 days, 1 tab daily for 3 days, 1/2 tab daily for 2 days PREDNISONE 20 MG ORAL T ABLET 464218 PREDNISONE Inactive ZITHROMAX 250 MG ORAL TABLET 2 po today, then 1 po q days 2-5 20 06/08/16 ZITHROMAX 250 MG ORAL TABLET 025619 AZITHROMYCIN [place] ctive FLAGYL 500 MG ORAL TABLET 1 tablet by mouth two times daily 2014 FLAGYL 500 MG ORAL TABLET 429070 METRONIDAZOLE Inacti ve AUGMENTIN 875-125 MG ORAL TABLET 1 tab by mouth twice daily with food AUGMENTIN 875-125 MG ORAL TABLET 451113 AMOXICIL ELSA-POT CLAVULANATE Inactive NAPROXEN 500 MG ORAL TABLET one tab PO BID NAPROXEN 500 MG ORAL TABLET 204038 NAPROXEN Inactive PREDNISONE 20 MG ORAL TABLET 2 tabs daily for 3 days, 1 tab daily for 3 days, 1/2 tab daily for 2 days PREDNISONE 20 MG ORAL T ABLET 154983 PREDNISONE Inactive AZITHROMYCIN 250 MG ORAL TABLET 2 po qd x 1 day, then 1 po q d x 4 days AZITHROMYCIN 250 MG ORAL TABLET 378189 AZITHROMY ALLISON Inactive PREDNISONE 20 MG ORAL TABLET 2 tabs daily for 3 days, 1 tab daily for 3 days, 1/2 tab daily for 2 days PREDNISONE 20 MG ORAL T ABLET 393762 PREDNISONE Inactive ZITHROMAX Z-EMIL 250 MG ORAL TABLET 2 today, then 1 daily for 4 d ays ZITHROMAX Z-EMIL 250 MG ORAL TABLET 706462 AZITHROMYCIN Inactive CEFDINIR 300 MG ORAL CAPSULE 1 po BID x 10 days 12/18 CEFDINIR 300 MG ORAL CAPSULE 602438 CEFDINIR Inactive CEFDINIR 300 MG ORAL CAPSULE 1 po BID x 10 days CEFDINIR 300 MG ORAL CAPSULE 331859 CEFDINIR Inactive PREDNISONE 20 MG ORAL TABLET 2 tabs daily for 3 days, 1 tab daily for 3 days, 1/2 tab daily for 2 days PREDNISONE 20 MG ORAL T ABLET 162109 PREDNISONE Inactive BACTRIM DS 800-160 MG ORAL TABLET 1 tab by mouth twice daily 201 05/02/30 BACTRIM DS 800-160 MG ORAL TABLET 641669 TRIMETHOPRIM-SULFAMETHOXAZOLE Inactive ZITHROMAX Z-EMIL 250 MG ORAL TABLET 2 today, then 1 daily for 4 d ays ZITHROMAX Z-EMIL 250 MG ORAL TABLET 356088 AZITHROMYCIN Inactive TAMIFLU 75 MG ORAL CAPSULE 1 po BID x 5 days 0 TAMIFLU 75 MG ORAL CAPSULE 633387 OSELTAMIVIR PHOSPHATE Inactive CEFDINIR 300 MG ORAL CAPSULE 1 po BID x 10 days 01/03 CEFDINIR 300 MG ORAL CAPSULE 000167 CEFDINIR Inactive ZITHROMAX Z-EMIL 250 MG TABS Take two tablets today and then 1 tablet daily for 4 days ZITHROMAX Z-EMIL 250 MG TABS 558493 AZITHROM YCIN Inactive AMOXICILLIN 875 MG ORAL TABLET 1 tab by mouth twice daily AMOXICILLIN 875 MG ORAL TABLET 537532 AMOXICILLIN Inactive Advance Directives Directive Description Start [...] Negative Encounters Code Encounter Date Provider Facility CPT-90177 [id number] Vst-Est Level III 09:41:31 CDT Arie Casper MD [facility] CPT-73193 [id number] Vst-Est Level III 18:20:11 CDT Me lobito Russ APRN [facility] CPT-84523 [id number] Vst-Est Level III 17:21:41 CDT Me lobito Russ [facility] CPT-74335 [id number] Vst-Est Level IV 13:30:22 C DT Arie Casper MD [facility] CPT-45119 Level 4 Est. Patient 13:05:26 CDT Myrna Real Bernabe maldonado MD [facility]-35941 [id number] Vst-Est Level IV 20:50:21 C DT Arie Casper MD [facility] CPT-65881 Level 3 Est. Patient 11:49:34 SENIOR EMBEDDED SOFTWARE ENGINEER Jessica boyd [facility] CPT-49946 Level 3 Est. Patient 14:55:50 SENIOR EMBEDDED SOFTWARE ENGINEER Jose Zhong MD [facility] CPT-46872 Level 3 Est. Patient 10:21:41 SENIOR EMBEDDED SOFTWARE ENGINEER Arie mcqueen MD [facility] CPT-69619 Level 3 Est. Patient 11:35:15 SENIOR EMBEDDED SOFTWARE ENGINEER Arie mcqueen MD [facility] CPT-82906 Level 3 Est. Patient 15:40:28 CDT Brii Are [facility] CPT-18406 Level 3 Est. Patient 16:40:36 CDT Arie mcqueen MD [facility] CPT-43608 Level 4 Est. Patient 15:29:22 SENIOR EMBEDDED SOFTWARE ENGINEER Arie mcqueen MD [facility] CPT-17028 Level 3 Est. Patient 15:18:16 SENIOR EMBEDDED SOFTWARE ENGINEER Jono black DO [facility] CPT-68420 Level 4 Est. Patient 12:08:40 SENIOR EMBEDDED SOFTWARE ENGINEER Brii Are [facility] CPT-73517 Level 3 Est. Patient 09:24:42 CDT Brii Are [facility] CPT-05810 Level 3 Est. Patient 09:12:56 CDT Arie mcqueen MD [facility] CPT-47740 Level 3 Est. Patient 16:40:54 CDT Jose Zhong MD [facility] CPT-76720 Level 2 Est. Patient 13:01:13 CDT Brii Yepez ll [facility] CPT-23699 Level 3 Est. Patient 11:55:30 SENIOR EMBEDDED SOFTWARE ENGINEER Jono black DO [facility] CPT-70653 Level 3 Est. Patient 09:52:36 SENIOR EMBEDDED SOFTWARE ENGINEER Brii Yepez ll [facility] CPT-54739 Level 3 Est. Patient 16:25:33 SENIOR EMBEDDED SOFTWARE ENGINEER Rich Rosales MD [facility]-18734 Level 3 Est. Patient 20:33:55 CDT Arie mcqueen MD [facility] CPT-97065 Level 3 Est. Patient 14:18:20 CDT Rich Rosales MD [facility] CPT-35938 Level 4 Est. Patient 09:34:31 CDT Arie mcqueen MD [facility] CPT-07854 Level 3 Est. Patient 09:08:55 SENIOR EMBEDDED SOFTWARE ENGINEER Liliana vincent MD PhD [facility]-63149 Level 3 Est. Patient 16:44:07 SENIOR EMBEDDED SOFTWARE ENGINEER Arie mcqueen MD [facility] CPT-70619 Level 3 Est. Patient 10:44:27 CDT Arie mcqueen MD [facility] CPT-17353 Level 3 Est. Patient 08:55:41 CDT Jose Zhong MD [facility] CPT-92259 Level 3 Est. Patient 18:37:31 CDT Liliana vincent MD PhD [facility]-36299 Level 3 Est. Patient 14:28:23 CDT Abelardo HERNANDEZ [facility] CPT-43913 Level 3 Est. Patient 15:18:13 SENIOR EMBEDDED SOFTWARE ENGINEER Arie mcqueen MD [facility] CPT-18620 Level 3 Est. Patient 10:11:29 SENIOR EMBEDDED SOFTWARE ENGINEER Arie mcqueen MD [facility] CPT-12564 Level 3 Est. Patient 10:55:57 SENIOR EMBEDDED SOFTWARE ENGINEER Jono Sarika Eliot sofia DO [facility] CPT-78736 Level 3 Est. Patient 17:29:05 CDT Arie mcqueen MD [facility] Procedures Code Procedure Name Date Entry Date Standard Desc ription CPT-66710 Sono Soft Tissue Head and Neck - XRAY US E ONLY 17:10:14 CDT CPT-32407 Ear Wash with irrigation 17:21:41 CDT 07/04 CPT-99145 Nexplanon Removal 15:40:28 CDT CPT-97313 Sono transvag pelvis non OB uterus ovari es cervix - XRAY USE ONLY 08:58:14 SENIOR EMBEDDED SOFTWARE ENGINEER CPT-40138 UA w micro - LAB USE ONLY 16:04:56 SENIOR [employer]MB[employer] SOFTWARE ENGINEER 2015 CPT-05471 Wet Prep/GEN - LAB USE ONLY 16:04:56 SENIOR [employer]MB[employer] SOFTWARE ENGINEER 20 08/10/29 CPT-23079 First Vx - Ix admin via ID I M or jet injects without counseling by physician 16:57:10 CDT CPT-89192 Fluzone Preservative Free Intramuscular Suspension 16:57:10 CDT CPT-J0696 Rocephin 1000 mg (Ceftriaxone) 11:49:23 CDT CPT-J1040 Depo Medrol 80 mg (Methyl Prednisolone A cetate) 11:49:23 CDT CPT-J1100 Decadron 8mg (Dexamethasone) 11:49:23 CDT 2 CPT-14004 Abx/Therapy Injection 11:49:23 CDT CPT-93917 Abx/Therapy Injection 11:49:23 CDT CPT-25637 Abd compl w upright 09:07:26 [employer]IOR [employer] SOFTWARE ENGINEER CPT-96302 Ear Wash 16:12:47 SENIOR [employer] SOFTWARE ENGINEER CPT-OV Office Visit 11:12:01 CDT CPT-OV Office Visit 15:30:23 CDT CPT-03462 Sono pelvis non OB uterus ovaries cervix 15:50:44 CDT CPT-05731 Hand comp min 3V 16:42:32 CDT CPT-47665 Abd compl w upright 12:17:01 CDT CPT-51006 Nexplanon Placement 15:07:39 SENIOR EMBEDDED SOFTWARE ENGINEER CPT-79856 Removal of IUD 15:07:39 SENIOR EMBEDDED SOFTWARE ENGINEER CPT-08078 TB Tubersol 12:09:32 CDT CPT-88552 TB Tubersol 13:55:43 CDT
--- OUTSIDE RECORDS SUMMARY | 2020-03-03 07:52 | XMS REPORT | Clinical Summary ---
Author Author Admin, Diamante Marcelo Organization [employer] Address Unknown Phone Unavailable Allergies, Adverse [...] respiratory manifestations Sinusitis 473.9 Active Jessica Heaton LATHE SETUP OPERATOR Unspecified sinusitis (chronic) Other mixed anxiety [...] Cerumen impaction, bilateral 380.4 Active Brii Russ LATHE SETUP OPERATOR Impacted cerumen Tonsillar enlargement 474.11 Active Brii Russ APRN Hypertrophy of tonsils alone Influenza Vaccination for Prophylaxis V04.81 Inactive Brii Russ LATHE SETUP OPERATOR Need for prophylactic vaccin ation and inoculation against influenza Submandibular lymph node 785.6 Active Brii Are ll LATHE SETUP OPERATOR Enlargement of lymph nodes Influenza Vaccination [...] MG ORAL CAPSULE 1 po tid CEPHALEXIN 403746 56959 Active Brii Russ APRN Active PROTONIX 40 MG ORAL TABLET DELAYED RELEASE 1 pill by m outh daily, for acid reflux PANTOPRAZOLE SODIUM 51712556235 Active Roseann Crawford Active AMOXICILLIN 875 MG ORAL TABLET 1 tab by mouth twice daily 1 AMOXICILLIN 93258802444 No Longer Active Brii Russ APRN Active ALPRAZOLAM 0.25 MG ORAL TABLET 1 tablet by mouth twice a day as needed for stress/anxiety ALPRAZOLAM 61663842537 Active KELLIE Escobar Active ESCITALOPRAM OXALATE 10 MG ORAL TABLET take 1 tab po qhs for mod 20 10/04/18 ESCITALOPRAM OXALATE 65928811264 Active Arie Casper MD Active TUSSIONEX PENNKINETIC ER 10-8 MG/5ML ORAL SUSPENSION E XTENDED RELEASE 5ml po q12hr PRN Cough HYDROCOD POLST-CHLORPHEN POLST 5 7873233559 No Longer Active Myrna Roberto MD Active ZITHROMAX Z-EMIL 250 MG TABS Take two tablets today and then 1 tablet daily for 4 days AZITHROMYCIN 46774016942 No Longer Active Flaco Rosales MD Active GUAIFENESIN DM 400-20 MG ORAL TABLET 1 pill by mouth t wice daily, if needed for cough DEXTROMETHORPHAN-GUAIFENESIN 77162178603 No Longer Active Rich Rosales MD Active CEFDINIR 300 MG ORAL CAPSULE 1 po BID x 10 days CEFDINIR 94568185670 No Longer Active Jessica Heaton APRN Active CHERATUSSIN AC 100-10 MG/5ML ORAL SYRUP 1 tsp by mouth every 4 hours as needed for cough GUAIFENESIN-CODEINE 57504879223 No Longe r Active Jessica Heaton APRN Active TAMIFLU 75 MG ORAL CAPSULE 1 po BID x 5 days 0 OSELTAMIVIR PHOSPHATE 99795475741 No Longer Active Jose Zhong MD Activ e ZITHROMAX Z-EMIL 250 MG ORAL TABLET 2 today, then 1 daily for 4 d ays AZITHROMYCIN 01923573074 No Longer Active Arie Casper MD Active PROTONIX 40 MG ORAL TABLET DELAYED RELEASE 1 po q a.m. PANTOPRAZOLE SODIUM 98144247942 No Longer Active Arie Casper MD Active BACTRIM DS 800-160 MG ORAL TABLET 1 tab by mouth twice daily 201 05/02/30 TRIMETHOPRIM-SULFAMETHOXAZOLE 40887692330 No Longer Active R vaalberto Crawford Active NEXPLANON IMPLANT right arm subcutaneously ETONOGESTREL IMPL 38122984167 No Longer Active Brii Areboris LATHE SETUP OPERATOR Active TUSSIONEX PENNKINETIC ER 10-8 MG/5ML ORAL SUSPENSION E XTENDED RELEASE 5ml po q12hr PRN Cough HYDROCOD POLST-CHLORPHEN POLST 5 1607673008 No Longer Active Brii Arell LATHE SETUP OPERATOR Active CETIRIZINE HCL 10 MG ORAL TABLET 1 po qd PRN Allergies CETIRIZINE HCL 83006748668 No Longer Active Brii Arell LATHE SETUP OPERATOR Activ e PREDNISONE 20 MG ORAL TABLET 2 tabs daily for 3 days, 1 tab daily for 3 days, 1/2 tab daily for 2 days PREDNISONE 82788216292 No Longer Active Arie Casper MD Active LOMOTIL 2.5-0.025 MG ORAL TABLET 1 tab po four times a day as needed for diarrhea DIPHENOXYLATE-ATROPINE 02734748092 No Lo nger Active Arie Casper MD Active ZOLOFT 50 MG ORAL TABLET 1 tablet by mouth daily 12/08 SERTRALINE HCL 36002541076 No Longer Active Arie Casper MD Ac tive NAPROXEN 500 MG ORAL TABLET Take 1 tab BID NAPR OXEN 16456882437 No Longer Active Arie Casper MD Active CEFDINIR 300 MG ORAL CAPSULE 1 po BID x 10 days CEFDINIR 91544935698 No Longer Active Brii Russ APRN Active PREDNISONE 20 MG ORAL TABLET 1 tablet daily for airway inflammat ion PREDNISONE 63667776501 No Longer Active Brii Russ APRN A ctive CEFDINIR 300 MG ORAL CAPSULE 1 po BID x 10 days CEFDINIR 15555528741 No Longer Active Jono Gagnon DO Active FLONASE 50 MCG/ACT NASAL SUSPENSION 1 spray each nostr il twice daily for allergies and runny nose until gone FLUT ICASONE PROPIONATE 93456852564 No Longer Active Jono Gagnon DO Active ALPRAZOLAM 0.25 MG ORAL TABLET 1 tablet by mouth every 8 hours as needed for stress ALPRAZOLAM 74227203758 No Longer Active Jono Gagnon DO Active ZITHROMAX Z-EMIL 250 MG ORAL TABLET 2 today, then 1 daily for 4 d ays AZITHROMYCIN 09807644791 No Longer Active Arie Casper MD Active PREDNISONE 20 MG ORAL TABLET 2 tabs daily for 3 days, 1 tab daily for 3 days, 1/2 tab daily for 2 days PREDNISONE 08812574119 No Longer Active Brii Russ APRN Active PREDNISONE 20 MG ORAL TABLET 1 tablet twice daily for 2 days, then 1 tablet once daily for 2 days PREDNISONE 26383503240 No Longer Active Brii Russ APRN Active PROMETHAZINE HCL 12.5 MG ORAL TABLET 1 tablet by mouth every 6 hours as needed for nausea/vomiting PROMETHAZINE HCL 46416039218 No L onger Active Jono Gagnon DO Active CITRATE OF MAGNESIA ORAL SOLUTION 1 bottle today for constipatio n MAGNESIUM CITRATE 54130745244 No Longer Active Jono Gagnon DO Active ZOFRAN 4 MG ORAL TABLET 1 TAB PO Q 6 HRS PRN NAUSEA 07/10/15 ONDANSETRON HCL 38768146272 No Longer Active Brii Russ APRN Acti ve LOMOTIL 2.5-0.025 MG ORAL TABLET 1 to 2 four times a day as needed for diarrhea DIPHENOXYLATE-ATROPINE 18558664647 No Longer Active January Russ APRN Active AMOXICILLIN 500 MG ORAL TABLET 2 tabs twice a day for 10 days 07/09/11 AMOXICILLIN 71515377450 No Longer Active Brii Russ APRN Active CYCLOBENZAPRINE HCL 10 MG ORAL TABLET 1/2 - 1 tablet b y mouth three times daily as needed for muscle spasm/pain CYCLOBENZAPRINE HCL 98150591376 No Longer Active Arie Casper MD Active LOMOTIL 2.5-0.025 MG ORAL TABLET 1 to 2 four times a day as needed for diarrhea DIPHENOXYLATE-ATROPINE 67511560812 No Longer Active Fozia Casper MD Active MACROBID 100 MG ORAL CAPSULE 1 cap by mouth twice daily NITROFURANTOIN MONOHYD MACRO 61801339646 No Longer Active Arie Casper MD Active ZYRTEC ALLERGY 10 MG ORAL CAPSULE 1 po qd CE TIRIZINE HCL 01524120030 No Longer Active Arie Casper MD Active AZITHROMYCIN 250 MG ORAL TABLET 2 po qd x 1 day, then 1 po q d x 4 days AZITHROMYCIN 59113983206 No Longer Active Jessica slagado APRN Active PREDNISONE 20 MG ORAL TABLET 2 tabs daily for 3 days, 1 tab daily for 3 days, 1/2 tab daily for 2 days PREDNISONE 40216117686 No Longer Active Jessica Heaton APRN Active PROMETHAZINE HCL 25 MG ORAL TABLET 1 four times a day as nee ded for vomiting PROMETHAZINE HCL 26806480026 No Longer Active Myrna Roberto MD Active BACTRIM DS 800-160 MG ORAL TABLET 1 twice a day 05/30 SULFAMETHOXAZOLE-TRIMETHOPRIM 24325142629 No Longer Active Myrna Roberto MD Active VICKS DAYQUIL SEVERE COLD/FLU TABLET 1 tab every 6 hours prn 201 02/22/17 [id number] TABS 40032009705 No Longer Active K fany Roberto MD Active GUAIFENESIN-CODEINE 100-10 MG/5ML ORAL SYRUP 2 tsp every 6 hours prn GUAIFENESIN-CODEINE 80776701096 No Longer Active Myrna Roberto MD Active NAPROXEN 500 MG ORAL TABLET one tab PO BID NAPR OXEN 32596666530 No Longer Active Myrna Roberto MD Active AUGMENTIN 875-125 MG ORAL TABLET 1 tab by mouth twice daily with food AMOXICILLIN-POT CLAVULANATE 97100642828 No Longer Act zaid Liliana Estrada MD PhD Active AMOXICILLIN 500 MG ORAL CAPSULE 1 tab by mouth 3 times daily 201 02/21/05 AMOXICILLIN 01137177169 No Longer Active Liliana Estrada MD PhD Active TESSALON PERLES 100 MG ORAL CAPSULE 1 tablet by mouth 3 times da cory BENZONATATE 16219374459 No Longer Active Liliana Estrada MD PhD Active FLAGYL 500 MG ORAL TABLET 1 tablet by mouth two times daily 2014 METRONIDAZOLE 25698693139 No Longer Active Nilam Raida Ac tive ZITHROMAX 250 MG ORAL TABLET 2 po today, then 1 po q days 2-5 20 06/08/16 AZITHROMYCIN 70401188929 No Longer Active Arie Casper MD Active VITAMINS 0.8 MG ORAL TABLET take 1 tab po qday [id number] 12998976841 No Longer Active Arie Casper MD Active IBUPROFEN 800 MG ORAL TABLET take one po Q 8 hours 201 02/01/16 IBUPROFEN 68219731171 No Longer Active Arie Casper MD Acti ve [facility] TUSSIN COUGH/COLD CF 5-10-100 MG/5ML ORAL LIQUID 2 teasp oons every 4 hours [id number] 94084650228 No Longer Active Blaine Casper MD Active COMTREX COLD/COUGH DAY/NITE MS 5-2-10-325 MG ORAL 2 caps deja ry 4 hours [id number] 69136843112 No Longer Active Landon Casper MD Active CHLORASEPTIC MAX SORE THROAT 15-10 MG MOUTH/THROAT LOZENGE 1 every 2 hours prn BENZOCAINE-MENTHOL 79030201765 No Longer Active Arie Casper MD Active PREDNISONE 20 MG ORAL TABLET 2 tabs daily for 3 days, 1 tab daily for 3 days, 1/2 tab daily for 2 days PREDNISONE 61039141608 No Longer Active Jose Zhong MD Active AZITHROMYCIN 250 MG ORAL TABLET 2 po qd x 1 day, then 1 po q d x 4 days AZITHROMYCIN 26249705757 No Longer Active Jose Mcwilliams MD Active ZOFRAN ODT 4 MG ORAL TABLET DISINTEGRATING 1 po q6hr PRN Nausea ONDANSETRON 19208162764 No Longer Active Rich Rosales MD Active ZOFRAN 4 MG ORAL TABLET 1 tablet every 4 hours ONDANSETRON HCL 70160619773 No Longer Active Rich Rosales MD Activ e MUCINEX 600 MG ORAL TABLET EXTENDED RELEASE 12 HOUR Ta ke 1-2 tablets every 12 hours GUAIFENESIN 74825196453 No Longer Active Rich Rosales MD Active BACTRIM 400-80 MG ORAL TABLET take one po BID SULFAMETHOXAZOLE-TRIMETHOPRIM 14967545869 No Longer Active Abelardo HERNANDEZ Active AZITHROMYCIN 500 MG ORAL TABLET 1 PO q day x 6 days 03/02/23 AZITHROMYCIN 58160219492 No Longer Active Tin HERNANDEZ Activ e ZITHROMAX 250 MG ORAL TABLET 2 po today, then 1 po q days 2-5 20 10/03/08 AZITHROMYCIN 75003460604 No Longer Active Arie Casper MD Active ZITHROMAX 250 MG ORAL TABLET 2 po today, then 1 po q days 2-5 20 09/23/25 AZITHROMYCIN 45341357986 No Longer Active Arie Casper MD Active AMOXICILLIN 500 MG ORAL CAPSULE 1 tab by mouth 3 times daily 201 11/24/09 AMOXICILLIN 16020089979 No Longer Active Arie Casper MD Active BACTRIM DS 800-160 MG ORAL TABLET 1 tab by mouth twice daily 201 11/03/14 TRIMETHOPRIM-SULFAMETHOXAZOLE 87556455666 No Longer Active Fozia Casper MD Active AMOXICILLIN 500 MG ORAL TABLET take 1 tab po TID 08/05 AMOXICILLIN 85498680695 No Longer Active Arie Casper MD Acti ve BACTRIM DS 800-160 MG ORAL TABLET 1 tab by mouth twice daily 201 11/03/14 BACTRIM DS 800-160 MG ORAL TABLET 364179 TRIMETHOPRIM-SULFAMETHOXAZOLE Inactive MUCINEX 600 MG ORAL TABLET EXTENDED RELEASE 12 HOUR Ta ke 1-2 tablets every 12 hours MUCINEX 600 MG ORAL TABLET EXTENDED RELEA SE 12 HOUR GUAIFENESIN Inactive ZOFRAN 4 MG ORAL TABLET 1 tablet every 4 hours ZOFRAN 4 MG ORAL TABLET 754240 ONDANSETRON HCL Inactive ZOFRAN ODT 4 MG ORAL TABLET DISINTEGRATING 1 po q6hr PRN Nausea ZOFRAN ODT 4 MG ORAL TABLET DISINTEGRATING 016757 ONDAN SETRON Inactive CHLORASEPTIC MAX SORE THROAT 15-10 MG MOUTH/THROAT LOZENGE 1 every 2 hours prn CHLORASEPTIC MAX SORE THROAT 15-10 MG MOUTH/THROAT LOZENGE BENZOCAINE-MENTHOL Inactive COMTREX COLD/COUGH DAY/NITE MS 5-2-10-325 MG ORAL 2 caps deja ry 4 hours COMTREX COLD/COUGH DAY/NITE MS 5-2-10-325 MG ORA L [id number] Inactive [facility] TUSSIN COUGH/COLD CF 5-10-100 MG/5ML ORAL LIQUID 2 teasp oons every 4 hours [facility] TUSSIN COUGH/COLD CF 5-10-100 MG/5ML ORAL LI QUID [id number] Inactive IBUPROFEN 800 MG ORAL TABLET take one po Q 8 hours 201 02/01/16 IBUPROFEN 800 MG ORAL TABLET 446759 IBUPROFEN Inactive VITAMINS 0.8 MG ORAL TABLET take 1 tab po qday VITAMINS 0.8 MG ORAL TABLET [id number] E-FA Inactive TESSALON PERLES 100 MG ORAL CAPSULE 1 tablet by mouth 3 times da cory TESSALON PERLES 100 MG ORAL CAPSULE 679563 BENZONATATE Inactive AMOXICILLIN 500 MG ORAL CAPSULE 1 tab by mouth 3 times daily 201 02/21/05 AMOXICILLIN 500 MG ORAL CAPSULE 610216 AMOXICILLIN Inactive GUAIFENESIN-CODEINE 100-10 MG/5ML ORAL SYRUP 2 tsp every 6 hours prn GUAIFENESIN-CODEINE 100-10 MG/5ML ORAL SYRUP 396695 GUAIFENESIN-CODEINE Inactive VICKS DAYQUIL SEVERE COLD/FLU TABLET 1 tab every 6 hours prn 201 02/22/17 VICKS DAYQUIL SEVERE COLD/FLU TABLET PHENYLEPHRI [id number]-[id number]-APAP TABS Inactive BACTRIM DS 800-160 MG ORAL TABLET 1 twice a day 05/30 BACTRIM DS 800-160 MG ORAL TABLET 970270 SULFAMETHOXAZOLE-TRIMETHOPRIM Inactiv e PROMETHAZINE HCL 25 MG ORAL TABLET 1 four times a day as nee ded for vomiting PROMETHAZINE HCL 25 MG ORAL TABLET 001654 PROMETHAZINE HCL Inactive ZYRTEC ALLERGY 10 MG ORAL CAPSULE 1 po qd ZYRTEC ALLERGY 10 MG ORAL CAPSULE CETIRIZINE HCL Inactive MACROBID 100 MG ORAL CAPSULE 1 cap by mouth twice daily MACROBID 100 MG ORAL CAPSULE 2979769 NITROFURANTOIN MONOHYD MACRO In active LOMOTIL 2.5-0.025 MG ORAL TABLET 1 to 2 four times a day as needed for diarrhea LOMOTIL 2.5-0.025 MG ORAL TABLET 3843313 DIPHENOXYLATE-ATROPINE Inactive CYCLOBENZAPRINE HCL 10 MG ORAL TABLET 1/2 - 1 tablet b y mouth three times daily as needed for muscle spasm/pain CYCLOBEN ZAPRINE HCL 10 MG ORAL TABLET 982477 CYCLOBENZAPRINE HCL Inactive AMOXICILLIN 500 MG ORAL TABLET 2 tabs twice a day for 10 days 07/09/11 AMOXICILLIN 500 MG ORAL TABLET 931962 AMOXICILLIN I nactive LOMOTIL 2.5-0.025 MG ORAL TABLET 1 to 2 four times a day as needed for diarrhea LOMOTIL 2.5-0.025 MG ORAL TABLET 2725038 DIPHENOXYLATE-ATROPINE Inactive ZOFRAN 4 MG ORAL TABLET 1 TAB PO Q 6 HRS PRN NAUSEA 07/10/15 ZOFRAN 4 MG ORAL TABLET 265667 ONDANSETRON HCL Inactive CITRATE OF MAGNESIA ORAL SOLUTION 1 bottle today for constipatio n CITRATE OF MAGNESIA ORAL SOLUTION 4643612 MAGNESIUM CITR ATE Inactive PROMETHAZINE HCL 12.5 MG ORAL TABLET 1 tablet by mouth every 6 hours as needed for nausea/vomiting PROMETHAZINE HCL 12.5 MG ORA L TABLET 913803 PROMETHAZINE HCL Inactive PREDNISONE 20 MG ORAL TABLET 1 tablet twice daily for 2 days, then 1 tablet once daily for 2 days PREDNISONE 20 MG ORAL TABLET 932800 PREDNISONE Inactive ALPRAZOLAM 0.25 MG ORAL TABLET 1 tablet by mouth every 8 hours as needed for stress ALPRAZOLAM 0.25 MG ORAL TABLET 782993 ALPRA ZOLAM Inactive FLONASE 50 MCG/ACT NASAL SUSPENSION 1 spray each nostr il twice daily for allergies and runny nose until gone FLON ASE 50 MCG/ACT NASAL SUSPENSION 2576567 FLUTICASONE PROPIONATE Inactive PREDNISONE 20 MG ORAL TABLET 1 tablet daily for airway inflammat ion PREDNISONE 20 MG ORAL TABLET 239369 PREDNISONE Arlen ctive NAPROXEN 500 MG ORAL TABLET Take 1 tab BID NAPROXEN 500 MG ORAL TABLET 822202 NAPROXEN Inactive ZOLOFT 50 MG ORAL TABLET 1 tablet by mouth daily 12/08 ZOLOFT 50 MG ORAL TABLET 307373 SERTRALINE HCL Inactive LOMOTIL 2.5-0.025 MG ORAL TABLET 1 tab po four times a day as needed for diarrhea LOMOTIL 2.5-0.025 MG ORAL TABLET 5763597 DIPHENOXYLATE-ATROPINE Inactive CETIRIZINE HCL 10 MG ORAL TABLET 1 po qd PRN Allergies CETIRIZINE HCL 10 MG ORAL TABLET 3368089 CETIRIZINE HCL Inactiv e TUSSIONEX PENNKINETIC ER 10-8 MG/5ML ORAL SUSPENSION E XTENDED RELEASE 5ml po q12hr PRN Cough TUSSIONEX PENNKINETI C ER 10-8 MG/5ML ORAL SUSPENSION EXTENDED RELEASE HYDROCOD POLST-CHLORPHEN POLST I nactive NEXPLANON IMPLANT right arm subcutaneously NEXPLANON IMPLANT ETONOGESTREL IMPL Inactive PROTONIX 40 MG ORAL TABLET DELAYED RELEASE 1 po q a.m. PROTONIX 40 MG ORAL TABLET DELAYED RELEASE 873727 PANTOPRAZOLE SODI UM Inactive CHERATUSSIN AC 100-10 MG/5ML ORAL SYRUP 1 tsp by mouth every 4 hours as needed for cough CHERATUSSIN AC 100-10 MG/5ML ORAL SYRUP 9 60881 GUAIFENESIN-CODEINE Inactive GUAIFENESIN DM 400-20 MG ORAL TABLET 1 pill by mouth t wice daily, if needed for cough GUAIFENESIN DM 400-20 MG ORAL TABLET 1142 739 DEXTROMETHORPHAN-GUAIFENESIN Inactive TUSSIONEX PENNKINETIC ER 10-8 MG/5ML ORAL SUSPENSION E XTENDED RELEASE 5ml po q12hr PRN Cough TUSSIONEX PENNKINETI C ER 10-8 MG/5ML ORAL SUSPENSION EXTENDED RELEASE HYDROCOD POLST-CHLORPHEN POLST I nactive AMOXICILLIN 500 MG ORAL TABLET take 1 tab po TID 08/05 AMOXICILLIN 500 MG ORAL TABLET 731263 AMOXICILLIN Inactive AMOXICILLIN 500 MG ORAL CAPSULE 1 tab by mouth 3 times daily 201 11/24/09 AMOXICILLIN 500 MG ORAL CAPSULE 550693 AMOXICILLIN Inactive ZITHROMAX 250 MG ORAL TABLET 2 po today, then 1 po q days 2-5 20 09/23/25 ZITHROMAX 250 MG ORAL TABLET 161784 AZITHROMYCIN [place] ctive ZITHROMAX 250 MG ORAL TABLET 2 po today, then 1 po q days 2-5 20 10/03/08 ZITHROMAX 250 MG ORAL TABLET 552802 AZITHROMYCIN [place] ctive AZITHROMYCIN 500 MG ORAL TABLET 1 PO q day x 6 days 20 03/02/23 AZITHROMYCIN 500 MG ORAL TABLET 4099928 AZITHROMYCIN Inactive BACTRIM 400-80 MG ORAL TABLET take one po BID BACTRIM 400- 80 MG ORAL TABLET 160473 SULFAMETHOXAZOLE-TRIMETHOPRIM Inactive AZITHROMYCIN 250 MG ORAL TABLET 2 po qd x 1 day, then 1 po q d x 4 days AZITHROMYCIN 250 MG ORAL TABLET 885272 AZITHROMY ALLISON Inactive PREDNISONE 20 MG ORAL TABLET 2 tabs daily for 3 days, 1 tab daily for 3 days, 1/2 tab daily for 2 days PREDNISONE 20 MG ORAL T ABLET 165861 PREDNISONE Inactive ZITHROMAX 250 MG ORAL TABLET 2 po today, then 1 po q days 2-5 20 06/08/16 ZITHROMAX 250 MG ORAL TABLET 637113 AZITHROMYCIN [place] ctive FLAGYL 500 MG ORAL TABLET 1 tablet by mouth two times daily 2014 FLAGYL 500 MG ORAL TABLET 109057 METRONIDAZOLE Inacti ve AUGMENTIN 875-125 MG ORAL TABLET 1 tab by mouth twice daily with food AUGMENTIN 875-125 MG ORAL TABLET 773252 AMOXICIL ELSA-POT CLAVULANATE Inactive NAPROXEN 500 MG ORAL TABLET one tab PO BID NAPROXEN 500 MG ORAL TABLET 014238 NAPROXEN Inactive PREDNISONE 20 MG ORAL TABLET 2 tabs daily for 3 days, 1 tab daily for 3 days, 1/2 tab daily for 2 days PREDNISONE 20 MG ORAL T ABLET 414289 PREDNISONE Inactive AZITHROMYCIN 250 MG ORAL TABLET 2 po qd x 1 day, then 1 po q d x 4 days AZITHROMYCIN 250 MG ORAL TABLET 326598 AZITHROMY ALLISON Inactive PREDNISONE 20 MG ORAL TABLET 2 tabs daily for 3 days, 1 tab daily for 3 days, 1/2 tab daily for 2 days PREDNISONE 20 MG ORAL T ABLET 520305 PREDNISONE Inactive ZITHROMAX Z-EMIL 250 MG ORAL TABLET 2 today, then 1 daily for 4 d ays ZITHROMAX Z-EMIL 250 MG ORAL TABLET 286138 AZITHROMYCIN Inactive CEFDINIR 300 MG ORAL CAPSULE 1 po BID x 10 days 12/18 CEFDINIR 300 MG ORAL CAPSULE 456112 CEFDINIR Inactive CEFDINIR 300 MG ORAL CAPSULE 1 po BID x 10 days CEFDINIR 300 MG ORAL CAPSULE 412316 CEFDINIR Inactive PREDNISONE 20 MG ORAL TABLET 2 tabs daily for 3 days, 1 tab daily for 3 days, 1/2 tab daily for 2 days PREDNISONE 20 MG ORAL T ABLET 102607 PREDNISONE Inactive BACTRIM DS 800-160 MG ORAL TABLET 1 tab by mouth twice daily 201 05/02/30 BACTRIM DS 800-160 MG ORAL TABLET 964284 TRIMETHOPRIM-SULFAMETHOXAZOLE Inactive ZITHROMAX Z-EMIL 250 MG ORAL TABLET 2 today, then 1 daily for 4 d ays ZITHROMAX Z-EMIL 250 MG ORAL TABLET 341281 AZITHROMYCIN Inactive TAMIFLU 75 MG ORAL CAPSULE 1 po BID x 5 days 0 TAMIFLU 75 MG ORAL CAPSULE 102321 OSELTAMIVIR PHOSPHATE Inactive CEFDINIR 300 MG ORAL CAPSULE 1 po BID x 10 days 01/03 CEFDINIR 300 MG ORAL CAPSULE 518410 CEFDINIR Inactive ZITHROMAX Z-EMIL 250 MG TABS Take two tablets today and then 1 tablet daily for 4 days ZITHROMAX Z-EMIL 250 MG TABS 356764 AZITHROM YCIN Inactive AMOXICILLIN 875 MG ORAL TABLET 1 tab by mouth twice daily AMOXICILLIN 875 MG ORAL TABLET 788100 AMOXICILLIN Inactive Advance Directives Directive Description Start [...] Negative Encounters Code Encounter Date Provider Facility CPT-22832 [id number] Vst-Est Level III 09:41:31 CDT Arie Casper MD [facility] CPT-40280 [id number] Vst-Est Level III 18:20:11 CDT Me lobito Russ APRN [facility] CPT-11131 [id number] Vst-Est Level III 17:21:41 CDT Me lobito Russ [facility] CPT-41424 [id number] Vst-Est Level IV 13:30:22 C NIC Casper MD [facility] CPT-04813 Level 4 Est. Patient 13:05:26 CDT Myrna Real Bernabe maldonado MD [facility] [place]-11381 [id number] Vst-Est Level IV 20:50:21 C DT Arie Casper MD [facility] CPT-18294 Level 3 Est. Patient 11:49:34 MEDICAL OFFICER PSYCHIATRY Jessica boyd [facility]-93531 Level 3 Est. Patient 14:55:50 MEDICAL OFFICER PSYCHIATRY Jose Zhong MD [facility] CPT-00893 Level 3 Est. Patient 10:21:41 MEDICAL OFFICER PSYCHIATRY Arie mcqueen MD [facility] CPT-03569 Level 3 Est. Patient 11:35:15 MEDICAL OFFICER PSYCHIATRY Arie mcqueen MD [facility] CPT-39617 Level 3 Est. Patient 15:40:28 CDT Brii Are [facility] CPT-90587 Level 3 Est. Patient 16:40:36 CDT Arie mcqueen MD [facility] [place]-33934 Level 4 Est. Patient 15:29:22 MEDICAL OFFICER PSYCHIATRY Arie mcqueen MD [facility] CPT-67759 Level 3 Est. Patient 15:18:16 MEDICAL OFFICER PSYCHIATRY Jono black DO [facility] CPT-82602 Level 4 Est. Patient 12:08:40 MEDICAL OFFICER PSYCHIATRY Brii Are [facility] CPT-21705 Level 3 Est. Patient 09:24:42 CDT Brii Are [facility] CPT-86632 Level 3 Est. Patient 09:12:56 CDT Arie mcqueen MD [facility] CPT-99901 Level 3 Est. Patient 16:40:54 CDT Jose Zhong MD [facility] CPT-00874 Level 2 Est. Patient 13:01:13 CDT Brii Yepez ll [facility] CPT-59591 Level 3 Est. Patient 11:55:30 MEDICAL OFFICER PSYCHIATRY Jono black DO [facility] CPT-84411 Level 3 Est. Patient 09:52:36 MEDICAL OFFICER PSYCHIATRY Brii Yepez ll [facility] CPT-88565 Level 3 Est. Patient 16:25:33 MEDICAL OFFICER PSYCHIATRY Rich Rosales MD [facility] CPT-18365 Level 3 Est. Patient 20:33:55 CDT Arie mcqueen MD [facility] CPT-62265 Level 3 Est. Patient 14:18:20 CDT Rich Rosales MD [facility] CPT-16458 Level 4 Est. Patient 09:34:31 CDT Arie mcqueen MD [facility] CPT-81442 Level 3 Est. Patient 09:08:55 MEDICAL OFFICER PSYCHIATRY Liliana vincent MD PhD [facility] [place]-20784 Level 3 Est. Patient 16:44:07 MEDICAL OFFICER PSYCHIATRY Arie mcqueen MD [facility] CPT-79328 Level 3 Est. Patient 10:44:27 CDT Arie mcqueen MD [facility] CPT-25762 Level 3 Est. Patient 08:55:41 CDT Jose Zhong MD [facility] CPT-39990 Level 3 Est. Patient 18:37:31 CDT Liliana vincent MD PhD [facility]-49193 Level 3 Est. Patient 14:28:23 CDT Abelardo HERNANDEZ [facility] CPT-09844 Level 3 Est. Patient 15:18:13 MEDICAL OFFICER PSYCHIATRY Arie mcqueen MD [facility] CPT-56153 Level 3 Est. Patient 10:11:29 MEDICAL OFFICER PSYCHIATRY Arie mcqueen MD [facility] CPT-33355 Level 3 Est. Patient 10:55:57 MEDICAL OFFICER PSYCHIATRY Jono Cheema sofia DO [facility] CPT-67136 Level 3 Est. Patient 17:29:05 CDT Arie mcqueen MD [facility] Procedures Code Procedure Name Date Entry Date Standard Desc ription CPT-81416 Sono Soft Tissue Head and Neck - XRAY US E ONLY 17:10:14 CDT CPT-74062 Ear Wash with irrigation 17:21:41 CDT 07/04 CPT-30588 Nexplanon Removal 15:40:28 CDT CPT-30030 Sono transvag pelvis non OB uterus ovari es cervix - XRAY USE ONLY 08:58:14 MEDICAL OFFICER PSYCHIATRY CPT-19367 UA w micro - LAB USE ONLY 16:04:56 MEDICAL OFFICER PSYCHIATRY 2015 CPT-95347 Wet Prep/GEN - LAB USE ONLY 16:04:56 MEDICAL OFFICER PSYCHIATRY 20 08/10/29 CPT-44029 First Vx - Ix admin via ID I M or jet injects without counseling by physician 16:57:10 CDT CPT-82529 Fluzone Preservative Free Intramuscular Suspension 16:57:10 CDT CPT-J0696 Rocephin 1000 mg (Ceftriaxone) 11:49:23 CDT CPT-J1040 Depo Medrol 80 mg (Methyl Prednisolone A cetate) 11:49:23 CDT CPT-J1100 Decadron 8mg (Dexamethasone) 11:49:23 CDT 2 CPT-84418 Abx/Therapy Injection 11:49:23 CDT CPT-27359 Abx/Therapy Injection 11:49:23 CDT CPT-51517 Abd compl w upright 09:07:26 [facility] CPT-60458 Ear Wash 16:12:47 [facility] CPT-OV Office Visit 11:12:01 CDT CPT-OV Office Visit 15:30:23 CDT CPT-25995 Sono pelvis non OB uterus ovaries cervix 15:50:44 CDT CPT-21457 Hand comp min 3V 16:42:32 CDT CPT-89110 Abd compl w upright 12:17:01 CDT CPT-06242 Nexplanon Placement 15:07:39 [facility] CPT-72797 Removal of IUD 15:07:39 [facility] CPT-82785 [facility] Tubersol 12:09:32 CDT CPT-63935 [facility] Tubersol 13:55:43 CDT
--- OUTSIDE RECORDS SUMMARY | 2020-03-03 07:53 | XMS REPORT | Clinical Summary ---
Author Author Admin, Diamante Marcelo Organization [facility] Address Unknown Phone Unavailable Allergies, Adverse Reactions, [...] Unspecified sinusitis (chronic) CONTRACEPTIVE MANAGEMENT V25.09 Active Aire Casper MD Encounter for other general counseling [...] Fever, unspecified Symptom, cough 786.2 Resolved Liliana Etsrada MD Ph D Cough Vaginal discharge 623.5 [...] with depression 300.4 Active Brii Ramirez l BRANDING SPECIALIST Dysthymic disorder URI 465.9 Active Jono [...] lymph node 785.6 Active Brii Are ll BRANDING SPECIALIST Enlargement of lymph nodes Influenza Vaccination for [...] MD Ph D SINUSITIS ICD-473.9 Inactive Liliana Estrdaa MD Ph D IUD removal ICD-V25.42 Inactive [...] MG ORAL CAPSULE 1 po tid CEPHALEXIN 193534 99705 Active Brii Russ APRN Active PROTONIX 40 MG ORAL TABLET DELAYED RELEASE 1 pill by m outh daily, for acid reflux PANTOPRAZOLE SODIUM 54463061488 Active Roseann Crawford Active AMOXICILLIN 875 MG ORAL TABLET 1 tab by mouth twice daily 1 AMOXICILLIN 03788408284 No Longer Active Brii Russ APRN Active ALPRAZOLAM 0.25 MG ORAL TABLET 1 tablet by mouth twice a day as needed for stress/anxiety ALPRAZOLAM 54812383213 Active KELLIE Escobar Active ESCITALOPRAM OXALATE 10 MG ORAL TABLET take 1 tab po qhs for mod 20 10/04/18 ESCITALOPRAM OXALATE 75683603506 Active Arie Casper MD Active TUSSIONEX PENNKINETIC ER 10-8 MG/5ML ORAL SUSPENSION E XTENDED RELEASE 5ml po q12hr PRN Cough HYDROCOD POLST-CHLORPHEN POLST 5 8893885759 No Longer Active Myrna Roberto MD Active ZITHROMAX Z-EMIL 250 MG TABS Take two tablets today and then 1 tablet daily for 4 days AZITHROMYCIN 70692281627 No Longer Active Flaco Rosales MD Active GUAIFENESIN DM 400-20 MG ORAL TABLET 1 pill by mouth t wice daily, if needed for cough DEXTROMETHORPHAN-GUAIFENESIN 63904624379 No Longer Active Rich Rosales MD Active CEFDINIR 300 MG ORAL CAPSULE 1 po BID x 10 days CEFDINIR 52526323569 No Longer Active Jillina Frazell BRANDING SPECIALIST Active CHERATUSSIN AC 100-10 MG/5ML ORAL SYRUP 1 tsp by mouth every 4 hours as needed for cough GUAIFENESIN-CODEINE 99438023680 No Longe r Active Jessica Faithnaomi BRANDING SPECIALIST Active TAMIFLU 75 MG ORAL CAPSULE 1 po BID x 5 days 0 OSELTAMIVIR PHOSPHATE 75227986255 No Longer Active Jose Zhong MD Activ e ZITHROMAX Z-EMIL 250 MG ORAL TABLET 2 today, then 1 daily for 4 d ays AZITHROMYCIN 98460224541 No Longer Active Arie Casper MD Active PROTONIX 40 MG ORAL TABLET DELAYED RELEASE 1 po q a.m. PANTOPRAZOLE SODIUM 50821057548 No Longer Active Arie Casper MD Active BACTRIM DS 800-160 MG ORAL TABLET 1 tab by mouth twice daily 201 05/02/30 TRIMETHOPRIM-SULFAMETHOXAZOLE 63305987988 No Longer Active R [facility] Active NEXPLANON IMPLANT right arm subcutaneously ETONOGESTREL IMPL 77193415328 No Longer Active Brii Arell BRANDING SPECIALIST Active TUSSIONEX PENNKINETIC ER 10-8 MG/5ML ORAL SUSPENSION E XTENDED RELEASE 5ml po q12hr PRN Cough HYDROCOD POLST-CHLORPHEN POLST 5 2422457247 No Longer Active Brii Arell BRANDING SPECIALIST Active CETIRIZINE HCL 10 MG ORAL TABLET 1 po qd PRN Allergies CETIRIZINE HCL 08947989167 No Longer Active Brii Arell BRANDING SPECIALIST Activ e PREDNISONE 20 MG ORAL TABLET 2 tabs daily for 3 days, 1 tab daily for 3 days, 1/2 tab daily for 2 days PREDNISONE 93716006120 No Longer Active Arie Casper MD Active LOMOTIL 2.5-0.025 MG ORAL TABLET 1 tab po four times a day as needed for diarrhea DIPHENOXYLATE-ATROPINE 98842168270 No Lo nger Active Arie Casper MD Active ZOLOFT 50 MG ORAL TABLET 1 tablet by mouth daily 12/08 SERTRALINE HCL 84050752324 No Longer Active Arie Casper MD Ac tive NAPROXEN 500 MG ORAL TABLET Take 1 tab BID NAPR OXEN 65257694061 No Longer Active Arie Casper MD Active CEFDINIR 300 MG ORAL CAPSULE 1 po BID x 10 days CEFDINIR 71474412613 No Longer Active Brii Russ APRN Active PREDNISONE 20 MG ORAL TABLET 1 tablet daily for airway inflammat ion PREDNISONE 46156511278 No Longer Active Brii Russ APRN A ctive CEFDINIR 300 MG ORAL CAPSULE 1 po BID x 10 days CEFDINIR 81855090462 No Longer Active Jono Gagnon DO Active FLONASE 50 MCG/ACT NASAL SUSPENSION 1 spray each nostr il twice daily for allergies and runny nose until gone FLUT ICASONE PROPIONATE 99711523103 No Longer Active Jono Gagnon DO Active ALPRAZOLAM 0.25 MG ORAL TABLET 1 tablet by mouth every 8 hours as needed for stress ALPRAZOLAM 73100229309 No Longer Active Jono Gagnon DO Active ZITHROMAX Z-EMIL 250 MG ORAL TABLET 2 today, then 1 daily for 4 d ays AZITHROMYCIN 21199687592 No Longer Active Arie Casper MD Active PREDNISONE 20 MG ORAL TABLET 2 tabs daily for 3 days, 1 tab daily for 3 days, 1/2 tab daily for 2 days PREDNISONE 85014207199 No Longer Active Brii Russ APRN Active PREDNISONE 20 MG ORAL TABLET 1 tablet twice daily for 2 days, then 1 tablet once daily for 2 days PREDNISONE 25889499169 No Longer Active Brii Russ APRN Active PROMETHAZINE HCL 12.5 MG ORAL TABLET 1 tablet by mouth every 6 hours as needed for nausea/vomiting PROMETHAZINE HCL 17205574753 No L onger Active Jono Gagnon DO Active CITRATE OF MAGNESIA ORAL SOLUTION 1 bottle today for constipatio n MAGNESIUM CITRATE 18560674126 No Longer Active Jono Gagnon DO Active ZOFRAN 4 MG ORAL TABLET 1 TAB PO Q 6 HRS PRN NAUSEA 07/10/15 ONDANSETRON HCL 17815581143 No Longer Active Brii Russ APRN Acti ve LOMOTIL 2.5-0.025 MG ORAL TABLET 1 to 2 four times a day as needed for diarrhea DIPHENOXYLATE-ATROPINE 01314768682 No Longer Active January Russ APRN Active AMOXICILLIN 500 MG ORAL TABLET 2 tabs twice a day for 10 days 07/09/11 AMOXICILLIN 13551078243 No Longer Active Brii Russ APRN Active CYCLOBENZAPRINE HCL 10 MG ORAL TABLET 1/2 - 1 tablet b y mouth three times daily as needed for muscle spasm/pain CYCLOBENZAPRINE HCL 10915086441 No Longer Active Arie Casper MD Active LOMOTIL 2.5-0.025 MG ORAL TABLET 1 to 2 four times a day as needed for diarrhea DIPHENOXYLATE-ATROPINE 02297014171 No Longer Active Fozia Casper MD Active MACROBID 100 MG ORAL CAPSULE 1 cap by mouth twice daily NITROFURANTOIN MONOHYD MACRO 05813362896 No Longer Active Arie Casper MD Active ZYRTEC ALLERGY 10 MG ORAL CAPSULE 1 po qd CE TIRIZINE HCL 26322297673 No Longer Active Arie Casper MD Active AZITHROMYCIN 250 MG ORAL TABLET 2 po qd x 1 day, then 1 po q d x 4 days AZITHROMYCIN 16327214456 No Longer Active Jessica salgado APRN Active PREDNISONE 20 MG ORAL TABLET 2 tabs daily for 3 days, 1 tab daily for 3 days, 1/2 tab daily for 2 days PREDNISONE 86654747619 No Longer Active Jessica Heaton APRN Active PROMETHAZINE HCL 25 MG ORAL TABLET 1 four times a day as nee ded for vomiting PROMETHAZINE HCL 89395914358 No Longer Active Myrna Roberto MD Active BACTRIM DS 800-160 MG ORAL TABLET 1 twice a day 05/30 SULFAMETHOXAZOLE-TRIMETHOPRIM 57209022321 No Longer Active Myrna Roberto MD Active VICKS DAYQUIL SEVERE COLD/FLU TABLET 1 tab every 6 hours prn 201 02/22/17 [id number] TABS 39110626019 No Longer Active Chris Roberto MD Active GUAIFENESIN-CODEINE 100-10 MG/5ML ORAL SYRUP 2 tsp every 6 hours prn GUAIFENESIN-CODEINE 60364542252 No Longer Active Myrna Roberto MD Active NAPROXEN 500 MG ORAL TABLET one tab PO BID NAPR OXEN 96262921831 No Longer Active Myrna Roberto MD Active AUGMENTIN 875-125 MG ORAL TABLET 1 tab by mouth twice daily with food AMOXICILLIN-POT CLAVULANATE 62411725355 No Longer Act zaid Liliana Estrada MD PhD Active AMOXICILLIN 500 MG ORAL CAPSULE 1 tab by mouth 3 times daily 201 02/21/05 AMOXICILLIN 91169733446 No Longer Active Liliana Estrada MD PhD Active TESSALON PERLES 100 MG ORAL CAPSULE 1 tablet by mouth 3 times da cory BENZONATATE 73804432642 No Longer Active Liliana Estrada MD PhD Active FLAGYL 500 MG ORAL TABLET 1 tablet by mouth two times daily 2014 METRONIDAZOLE 15945034792 No Longer Active Nilam Raida Ac tive ZITHROMAX 250 MG ORAL TABLET 2 po today, then 1 po q days 2-5 20 06/08/16 AZITHROMYCIN 66034853032 No Longer Active Arie Casper MD Active VITAMINS 0.8 MG ORAL TABLET take 1 tab po qday IREMERPT-[id number]-[id number] 01223805409 No Longer Active Arie Casper MD Active IBUPROFEN 800 MG ORAL TABLET take one po Q 8 hours 201 02/01/16 IBUPROFEN 23904287351 No Longer Active Arie Casper MD Acti ve [facility] TUSSIN COUGH/COLD CF 5-10-100 MG/5ML ORAL LIQUID 2 teasp oons every 4 hours [id number] 40386080858 No Longer Active Blaine Casper MD Active COMTREX COLD/COUGH DAY/NITE MS 5-2-10-325 MG ORAL 2 caps deja ry 4 hours [id number] 93007308565 No Longer Active Landon Casper MD Active CHLORASEPTIC MAX SORE THROAT 15-10 MG MOUTH/THROAT LOZENGE 1 every 2 hours prn BENZOCAINE-MENTHOL 75123791199 No Longer Active Arie Casper MD Active PREDNISONE 20 MG ORAL TABLET 2 tabs daily for 3 days, 1 tab daily for 3 days, 1/2 tab daily for 2 days PREDNISONE 77120057225 No Longer Active Jose Zhong MD Active AZITHROMYCIN 250 MG ORAL TABLET 2 po qd x 1 day, then 1 po q d x 4 days AZITHROMYCIN 33733590754 No Longer Active Jose Mcwilliams MD Active ZOFRAN ODT 4 MG ORAL TABLET DISINTEGRATING 1 po q6hr PRN Nausea ONDANSETRON 03960601308 No Longer Active Rich Rosales MD Active ZOFRAN 4 MG ORAL TABLET 1 tablet every 4 hours ONDANSETRON HCL 67862313156 No Longer Active Rich Rosales MD Activ e MUCINEX 600 MG ORAL TABLET EXTENDED RELEASE 12 HOUR Ta ke 1-2 tablets every 12 hours GUAIFENESIN 72192114150 No Longer Active Rich Rosales MD Active BACTRIM 400-80 MG ORAL TABLET take one po BID SULFAMETHOXAZOLE-TRIMETHOPRIM 76817665590 No Longer Active Abelardo HERNANDEZ Active AZITHROMYCIN 500 MG ORAL TABLET 1 PO q day x 6 days 03/02/23 AZITHROMYCIN 53472073371 No Longer Active Tin HERNANDEZ Activ e ZITHROMAX 250 MG ORAL TABLET 2 po today, then 1 po q days 2-5 20 10/03/08 AZITHROMYCIN 71544574723 No Longer Active Arie Casper MD Active ZITHROMAX 250 MG ORAL TABLET 2 po today, then 1 po q days 2-5 20 09/23/25 AZITHROMYCIN 33104069448 No Longer Active Arie Casper MD Active AMOXICILLIN 500 MG ORAL CAPSULE 1 tab by mouth 3 times daily 201 11/24/09 AMOXICILLIN 88747259579 No Longer Active Arie Casper MD Active BACTRIM DS 800-160 MG ORAL TABLET 1 tab by mouth twice daily 201 11/03/14 TRIMETHOPRIM-SULFAMETHOXAZOLE 56195293128 No Longer Active Fozia Casper MD Active AMOXICILLIN 500 MG ORAL TABLET take 1 tab po TID 08/05 AMOXICILLIN 37139119374 No Longer Active Arie Casper MD Acti ve BACTRIM DS 800-160 MG ORAL TABLET 1 tab by mouth twice daily 201 11/03/14 BACTRIM DS 800-160 MG ORAL TABLET 384807 TRIMETHOPRIM-SULFAMETHOXAZOLE Inactive MUCINEX 600 MG ORAL TABLET EXTENDED RELEASE 12 HOUR Ta ke 1-2 tablets every 12 hours MUCINEX 600 MG ORAL TABLET EXTENDED RELEA SE 12 HOUR GUAIFENESIN Inactive ZOFRAN 4 MG ORAL TABLET 1 tablet every 4 hours ZOFRAN 4 MG ORAL TABLET 999644 ONDANSETRON HCL Inactive ZOFRAN ODT 4 MG ORAL TABLET DISINTEGRATING 1 po q6hr PRN Nausea ZOFRAN ODT 4 MG ORAL TABLET DISINTEGRATING 268345 ONDAN SETRON Inactive CHLORASEPTIC MAX SORE THROAT 15-10 MG MOUTH/THROAT LOZENGE 1 every 2 hours prn CHLORASEPTIC MAX SORE THROAT 15-10 MG MOUTH/THROAT LOZENGE BENZOCAINE-MENTHOL Inactive COMTREX COLD/COUGH DAY/NITE MS 5-2-10-325 MG ORAL 2 caps deja ry 4 hours COMTREX COLD/COUGH DAY/NITE MS 5-2-10-325 MG ORA L [id number] Inactive [facility] TUSSIN COUGH/COLD CF 5-10-100 MG/5ML ORAL LIQUID 2 teasp oons every 4 hours [facility] TUSSIN COUGH/COLD CF 5-10-100 MG/5ML ORAL LI QUID [id number] Inactive IBUPROFEN 800 MG ORAL TABLET take one po Q 8 hours 201 02/01/16 IBUPROFEN 800 MG ORAL TABLET 872645 IBUPROFEN Inactive VITAMINS 0.8 MG ORAL TABLET take 1 tab po qday VITAMINS 0.8 MG ORAL TABLET [id number] E-FA Inactive TESSALON PERLES 100 MG ORAL CAPSULE 1 tablet by mouth 3 times da cory TESSALON PERLES 100 MG ORAL CAPSULE 726397 BENZONATATE Inactive AMOXICILLIN 500 MG ORAL CAPSULE 1 tab by mouth 3 times daily 201 02/21/05 AMOXICILLIN 500 MG ORAL CAPSULE 903299 AMOXICILLIN Inactive GUAIFENESIN-CODEINE 100-10 MG/5ML ORAL SYRUP 2 tsp every 6 hours prn GUAIFENESIN-CODEINE 100-10 MG/5ML ORAL SYRUP 975506 GUAIFENESIN-CODEINE Inactive VICKS DAYQUIL SEVERE COLD/FLU TABLET 1 tab every 6 hours prn 201 02/22/17 VICKS DAYQUIL SEVERE COLD/FLU TABLET PHENYLEPHRI [id number] TABS Inactive BACTRIM DS 800-160 MG ORAL TABLET 1 twice a day 05/30 BACTRIM DS 800-160 MG ORAL TABLET 773989 SULFAMETHOXAZOLE-TRIMETHOPRIM Inactiv e PROMETHAZINE HCL 25 MG ORAL TABLET 1 four times a day as nee ded for vomiting PROMETHAZINE HCL 25 MG ORAL TABLET 229575 PROMETHAZINE HCL Inactive ZYRTEC ALLERGY 10 MG ORAL CAPSULE 1 po qd ZYRTEC ALLERGY 10 MG ORAL CAPSULE CETIRIZINE HCL Inactive MACROBID 100 MG ORAL CAPSULE 1 cap by mouth twice daily MACROBID 100 MG ORAL CAPSULE 6531421 NITROFURANTOIN MONOHYD MACRO In active LOMOTIL 2.5-0.025 MG ORAL TABLET 1 to 2 four times a day as needed for diarrhea LOMOTIL 2.5-0.025 MG ORAL TABLET 4765141 DIPHENOXYLATE-ATROPINE Inactive CYCLOBENZAPRINE HCL 10 MG ORAL TABLET 1/2 - 1 tablet b y mouth three times daily as needed for muscle spasm/pain CYCLOBEN ZAPRINE HCL 10 MG ORAL TABLET 598518 CYCLOBENZAPRINE HCL Inactive AMOXICILLIN 500 MG ORAL TABLET 2 tabs twice a day for 10 days 07/09/11 AMOXICILLIN 500 MG ORAL TABLET 760036 AMOXICILLIN I nactive LOMOTIL 2.5-0.025 MG ORAL TABLET 1 to 2 four times a day as needed for diarrhea LOMOTIL 2.5-0.025 MG ORAL TABLET 8049445 DIPHENOXYLATE-ATROPINE Inactive ZOFRAN 4 MG ORAL TABLET 1 TAB PO Q 6 HRS PRN NAUSEA 07/10/15 ZOFRAN 4 MG ORAL TABLET 186408 ONDANSETRON HCL Inactive CITRATE OF MAGNESIA ORAL SOLUTION 1 bottle today for constipatio n CITRATE OF MAGNESIA ORAL SOLUTION 4763975 MAGNESIUM CITR ATE Inactive PROMETHAZINE HCL 12.5 MG ORAL TABLET 1 tablet by mouth every 6 hours as needed for nausea/vomiting PROMETHAZINE HCL 12.5 MG ORA L TABLET 510253 PROMETHAZINE HCL Inactive PREDNISONE 20 MG ORAL TABLET 1 tablet twice daily for 2 days, then 1 tablet once daily for 2 days PREDNISONE 20 MG ORAL TABLET 693986 PREDNISONE Inactive ALPRAZOLAM 0.25 MG ORAL TABLET 1 tablet by mouth every 8 hours as needed for stress ALPRAZOLAM 0.25 MG ORAL TABLET 991815 ALPRA ZOLAM Inactive FLONASE 50 MCG/ACT NASAL SUSPENSION 1 spray each nostr il twice daily for allergies and runny nose until gone FLON ASE 50 MCG/ACT NASAL SUSPENSION 1859431 FLUTICASONE PROPIONATE Inactive PREDNISONE 20 MG ORAL TABLET 1 tablet daily for airway inflammat ion PREDNISONE 20 MG ORAL TABLET 705225 PREDNISONE Arlen ctive NAPROXEN 500 MG ORAL TABLET Take 1 tab BID NAPROXEN 500 MG ORAL TABLET 523318 NAPROXEN Inactive ZOLOFT 50 MG ORAL TABLET 1 tablet by mouth daily 12/08 ZOLOFT 50 MG ORAL TABLET 196992 SERTRALINE HCL Inactive LOMOTIL 2.5-0.025 MG ORAL TABLET 1 tab po four times a day as needed for diarrhea LOMOTIL 2.5-0.025 MG ORAL TABLET 3109549 DIPHENOXYLATE-ATROPINE Inactive CETIRIZINE HCL 10 MG ORAL TABLET 1 po qd PRN Allergies CETIRIZINE HCL 10 MG ORAL TABLET 9599374 CETIRIZINE HCL Inactiv e TUSSIONEX PENNKINETIC ER 10-8 MG/5ML ORAL SUSPENSION E XTENDED RELEASE 5ml po q12hr PRN Cough TUSSIONEX PENNKINETI C ER 10-8 MG/5ML ORAL SUSPENSION EXTENDED RELEASE HYDROCOD POLST-CHLORPHEN POLST I nactive NEXPLANON IMPLANT right arm subcutaneously NEXPLANON IMPLANT ETONOGESTREL IMPL Inactive PROTONIX 40 MG ORAL TABLET DELAYED RELEASE 1 po q a.m. PROTONIX 40 MG ORAL TABLET DELAYED RELEASE 636402 PANTOPRAZOLE SODI UM Inactive CHERATUSSIN AC 100-10 MG/5ML ORAL SYRUP 1 tsp by mouth every 4 hours as needed for cough CHERATUSSIN AC 100-10 MG/5ML ORAL SYRUP 9 62429 GUAIFENESIN-CODEINE Inactive GUAIFENESIN DM 400-20 MG ORAL TABLET 1 pill by mouth t wice daily, if needed for cough GUAIFENESIN DM 400-20 MG ORAL TABLET 1149 865 DEXTROMETHORPHAN-GUAIFENESIN Inactive TUSSIONEX PENNKINETIC ER 10-8 MG/5ML ORAL SUSPENSION E XTENDED RELEASE 5ml po q12hr PRN Cough TUSSIONEX PENNKINETI C ER 10-8 MG/5ML ORAL SUSPENSION EXTENDED RELEASE HYDROCOD POLST-CHLORPHEN POLST I nactive AMOXICILLIN 500 MG ORAL TABLET take 1 tab po TID 08/05 AMOXICILLIN 500 MG ORAL TABLET 937459 AMOXICILLIN Inactive AMOXICILLIN 500 MG ORAL CAPSULE 1 tab by mouth 3 times daily 201 11/24/09 AMOXICILLIN 500 MG ORAL CAPSULE 001613 AMOXICILLIN Inactive ZITHROMAX 250 MG ORAL TABLET 2 po today, then 1 po q days 2-5 20 09/23/25 ZITHROMAX 250 MG ORAL TABLET 882767 AZITHROMYCIN Arlen ctive ZITHROMAX 250 MG ORAL TABLET 2 po today, then 1 po q days 2-5 20 10/03/08 ZITHROMAX 250 MG ORAL TABLET 852564 AZITHROMYCIN Arlen ctive AZITHROMYCIN 500 MG ORAL TABLET 1 PO q day x 6 days 03/02/23 AZITHROMYCIN 500 MG ORAL TABLET 9668932 AZITHROMYCIN Inactive BACTRIM 400-80 MG ORAL TABLET take one po BID BACTRIM 400- 80 MG ORAL TABLET 032135 SULFAMETHOXAZOLE-TRIMETHOPRIM Inactive AZITHROMYCIN 250 MG ORAL TABLET 2 po qd x 1 day, then 1 po q d x 4 days AZITHROMYCIN 250 MG ORAL TABLET 930451 AZITHROMY ALLISON Inactive PREDNISONE 20 MG ORAL TABLET 2 tabs daily for 3 days, 1 tab daily for 3 days, 1/2 tab daily for 2 days PREDNISONE 20 MG ORAL T ABLET 827571 PREDNISONE Inactive ZITHROMAX 250 MG ORAL TABLET 2 po today, then 1 po q days 2-5 20 06/08/16 ZITHROMAX 250 MG ORAL TABLET 682311 AZITHROMYCIN [place] ctive FLAGYL 500 MG ORAL TABLET 1 tablet by mouth two times daily 2014 FLAGYL 500 MG ORAL TABLET 562522 METRONIDAZOLE Inacti ve AUGMENTIN 875-125 MG ORAL TABLET 1 tab by mouth twice daily with food AUGMENTIN 875-125 MG ORAL TABLET 442260 AMOXICIL ELSA-POT CLAVULANATE Inactive NAPROXEN 500 MG ORAL TABLET one tab PO BID NAPROXEN 500 MG ORAL TABLET 113913 NAPROXEN Inactive PREDNISONE 20 MG ORAL TABLET 2 tabs daily for 3 days, 1 tab daily for 3 days, 1/2 tab daily for 2 days PREDNISONE 20 MG ORAL T ABLET 110892 PREDNISONE Inactive AZITHROMYCIN 250 MG ORAL TABLET 2 po qd x 1 day, then 1 po q d x 4 days AZITHROMYCIN 250 MG ORAL TABLET 675491 AZITHROMY ALLISON Inactive PREDNISONE 20 MG ORAL TABLET 2 tabs daily for 3 days, 1 tab daily for 3 days, 1/2 tab daily for 2 days PREDNISONE 20 MG ORAL T ABLET 283188 PREDNISONE Inactive ZITHROMAX Z-EMIL 250 MG ORAL TABLET 2 today, then 1 daily for 4 d ays ZITHROMAX Z-EMIL 250 MG ORAL TABLET 185336 AZITHROMYCIN Inactive CEFDINIR 300 MG ORAL CAPSULE 1 po BID x 10 days 12/18 CEFDINIR 300 MG ORAL CAPSULE 798728 CEFDINIR Inactive CEFDINIR 300 MG ORAL CAPSULE 1 po BID x 10 days CEFDINIR 300 MG ORAL CAPSULE 349026 CEFDINIR Inactive PREDNISONE 20 MG ORAL TABLET 2 tabs daily for 3 days, 1 tab daily for 3 days, 1/2 tab daily for 2 days PREDNISONE 20 MG ORAL T ABLET 210911 PREDNISONE Inactive BACTRIM DS 800-160 MG ORAL TABLET 1 tab by mouth twice daily 201 05/02/30 BACTRIM DS 800-160 MG ORAL TABLET 652064 TRIMETHOPRIM-SULFAMETHOXAZOLE Inactive ZITHROMAX Z-EMIL 250 MG ORAL TABLET 2 today, then 1 daily for 4 d ays ZITHROMAX Z-EMIL 250 MG ORAL TABLET 174557 AZITHROMYCIN Inactive TAMIFLU 75 MG ORAL CAPSULE 1 po BID x 5 days 0 TAMIFLU 75 MG ORAL CAPSULE 534010 OSELTAMIVIR PHOSPHATE Inactive CEFDINIR 300 MG ORAL CAPSULE 1 po BID x 10 days 01/03 CEFDINIR 300 MG ORAL CAPSULE 234772 CEFDINIR Inactive ZITHROMAX Z-EMIL 250 MG TABS Take two tablets today and then 1 tablet daily for 4 days ZITHROMAX Z-EMIL 250 MG TABS 980097 AZITHROM YCIN Inactive AMOXICILLIN 875 MG ORAL TABLET 1 tab by mouth twice daily AMOXICILLIN 875 MG ORAL TABLET 860486 AMOXICILLIN Inactive Advance Directives Directive Description Start [...] Negative Encounters Code Encounter Date Provider Facility CPT-97213 [id number] Vst-Est Level III 09:41:31 CDT Arie Casper MD [facility] CPT-51093 [id number] Vst-Est Level III 18:20:11 CDT Me lobito Russ APRN [facility] CPT-92635 [id number] Vst-Est Level III 17:21:41 CDT Me lobito Russ [facility] CPT-47091 [id number] Vst-Est Level IV 13:30:22 C DT Arie Casper MD [facility] CPT-82679 Level 4 Est. Patient 13:05:26 CDT Myrna Real Bernabe maldonado MD [facility]-00538 [id number] Vst-Est Level IV 20:50:21 C DT Arie Casper MD [facility] CPT-27741 Level 3 Est. Patient 11:49:34 WASTE SALVAGER Jessica boyd [facility] CPT-49549 Level 3 Est. Patient 14:55:50 WASTE SALVAGER Jose Zhong MD [facility] CPT-62259 Level 3 Est. Patient 10:21:41 WASTE SALVAGER Arie mcqueen MD [facility] CPT-80607 Level 3 Est. Patient 11:35:15 WASTE SALVAGER Arie mcqueen MD [facility] CPT-08276 Level 3 Est. Patient 15:40:28 CDT Brii Are [facility] CPT-43435 Level 3 Est. Patient 16:40:36 CDT Arie mcqueen MD [facility] CPT-36317 Level 4 Est. Patient 15:29:22 WASTE SALVAGER Arie mcqueen MD [facility] CPT-92228 Level 3 Est. Patient 15:18:16 WASTE SALVAGER Jono black DO [facility] CPT-50623 Level 4 Est. Patient 12:08:40 WASTE SALVAGER Brii Are [facility] CPT-06694 Level 3 Est. Patient 09:24:42 CDT Brii Are [facility] CPT-76240 Level 3 Est. Patient 09:12:56 CDT Arie mcqueen MD [facility] CPT-69862 Level 3 Est. Patient 16:40:54 CDT Jose Zhong MD [facility] CPT-56739 Level 2 Est. Patient 13:01:13 CDT Brii Yepez ll [facility] CPT-28538 Level 3 Est. Patient 11:55:30 WASTE SALVAGER Jono black DO [facility] CPT-38543 Level 3 Est. Patient 09:52:36 WASTE SALVAGER Brii Yepez ll [facility] CPT-71175 Level 3 Est. Patient 16:25:33 WASTE SALVAGER Rich Rosales MD [facility]-90883 Level 3 Est. Patient 20:33:55 CDT Arie mcqueen MD [facility] CPT-51869 Level 3 Est. Patient 14:18:20 CDT Rich Rosales MD [facility] CPT-53103 Level 4 Est. Patient 09:34:31 CDT Arie mcqueen MD [facility] CPT-84037 Level 3 Est. Patient 09:08:55 WASTE SALVAGER Liliana vincent MD PhD [facility]-77021 Level 3 Est. Patient 16:44:07 WASTE SALVAGER Arie mcqueen MD [facility] CPT-50347 Level 3 Est. Patient 10:44:27 CDT Arie mcqueen MD [facility] CPT-92904 Level 3 Est. Patient 08:55:41 CDT Jose Zhong MD [facility] CPT-10641 Level 3 Est. Patient 18:37:31 CDT Liliana vincent MD PhD [facility]-93413 Level 3 Est. Patient 14:28:23 CDT Abelardo HERNANDEZ [facility] CPT-26933 Level 3 Est. Patient 15:18:13 WASTE SALVAGER Arie mcqueen MD [facility] CPT-30593 Level 3 Est. Patient 10:11:29 WASTE SALVAGER Arie mcqueen MD [facility] CPT-44662 Level 3 Est. Patient 10:55:57 WASTE SALVAGER Jono black DO [facility] CPT-22943 Level 3 Est. Patient 17:29:05 CDT Arie mcqueen MD [facility] Procedures Code Procedure Name Date Entry Date Standard Desc ription CPT-64795 Ear Wash with irrigation 17:21:41 CDT 07/04 CPT-93559 Nexplanon Removal 15:40:28 CDT CPT-28733 Sono transvag pelvis non OB uterus ovari es cervix - XRAY USE ONLY 08:58:14 WASTE SALVAGER CPT-84077 UA w micro - LAB USE ONLY 16:04:56 WASTE SALVAGER 2015 CPT-55061 Wet Prep/GEN - LAB USE ONLY 16:04:56 WASTE SALVAGER 20 08/10/29 CPT-04862 First Vx - Ix admin via ID I M or jet injects without counseling by physician 16:57:10 CDT CPT-30343 Fluzone Preservative Free Intramuscular Suspension 16:57:10 CDT CPT-J0696 Rocephin 1000 mg (Ceftriaxone) 11:49:23 CDT CPT-J1040 Depo Medrol 80 mg (Methyl Prednisolone A cetate) 11:49:23 CDT CPT-J1100 Decadron 8mg (Dexamethasone) 11:49:23 CDT 2 CPT-78520 Abx/Therapy Injection 11:49:23 CDT CPT-20933 Abx/Therapy Injection 11:49:23 CDT CPT-39704 Abd compl w upright 09:07:26 WASTE [facility]AGER CPT-54095 Ear Wash 16:12:47 WASTE SAL[facility]AGER CPT-OV Office Visit 11:12:01 CDT CPT-OV Office Visit 15:30:23 CDT CPT-12381 Sono pelvis non OB uterus ovaries cervix 15:50:44 CDT CPT-12778 Hand comp min 3V 16:42:32 CDT CPT-80279 Abd compl w upright 12:17:01 CDT CPT-50654 Nexplanon Placement 15:07:39 WASTE SALVAGER CPT-60295 Removal of IUD 15:07:39 WASTE SALVAGER CPT-41066 TB Tubersol 12:09:32 CDT CPT-00207 TB Tubersol 13:55:43 CDT
--- OUTSIDE RECORDS SUMMARY | 2020-03-03 07:53 | XMS REPORT | Clinical Summary ---
Author Author Admin, Diamante Marcelo Organization [employer] Address Unknown Phone Unavailable Allergies, Adverse Reactions, [...] respiratory manifestations Sinusitis 473.9 Active Jessica Heaton HONE OPERATOR Unspecified sinusitis (chronic) Other mixed anxiety [...] Cerumen impaction, bilateral 380.4 Active Brii Russ HONE OPERATOR Impacted cerumen Tonsillar enlargement 474.11 Active Brii Russ APRN Hypertrophy of tonsils alone Influenza Vaccination for Prophylaxis V04.81 Inactive Brii Russ HONE OPERATOR Need for prophylactic vaccin ation and inoculation against influenza Submandibular lymph node 785.6 Active Brii Are ll HONE OPERATOR Enlargement of lymph nodes Influenza Vaccination [...] MG ORAL CAPSULE 1 po tid CEPHALEXIN 002968 98347 Active Brii Russ APRN Active PROTONIX 40 MG ORAL TABLET DELAYED RELEASE 1 pill by m outh daily, for acid reflux PANTOPRAZOLE SODIUM 07438399223 Active Roseann Crawford Active AMOXICILLIN 875 MG ORAL TABLET 1 tab by mouth twice daily 1 AMOXICILLIN 26751716075 No Longer Active Brii Russ APRN Active ALPRAZOLAM 0.25 MG ORAL TABLET 1 tablet by mouth twice a day as needed for stress/anxiety ALPRAZOLAM 84381661753 Active KELLIE Escobar Active ESCITALOPRAM OXALATE 10 MG ORAL TABLET take 1 tab po qhs for mod 20 10/04/18 ESCITALOPRAM OXALATE 55050107557 Active Arie Casper MD Active TUSSIONEX PENNKINETIC ER 10-8 MG/5ML ORAL SUSPENSION E XTENDED RELEASE 5ml po q12hr PRN Cough HYDROCOD POLST-CHLORPHEN POLST 5 2488415365 No Longer Active Myrna Roberto MD Active ZITHROMAX Z-EMIL 250 MG TABS Take two tablets today and then 1 tablet daily for 4 days AZITHROMYCIN 87525226784 No Longer Active Flaco Rosales MD Active GUAIFENESIN DM 400-20 MG ORAL TABLET 1 pill by mouth t wice daily, if needed for cough DEXTROMETHORPHAN-GUAIFENESIN 33529106562 No Longer Active Rich Rosales MD Active CEFDINIR 300 MG ORAL CAPSULE 1 po BID x 10 days CEFDINIR 68171747431 No Longer Active Jessica Heaton APRN Active CHERATUSSIN AC 100-10 MG/5ML ORAL SYRUP 1 tsp by mouth every 4 hours as needed for cough GUAIFENESIN-CODEINE 76631395023 No Longe r Active Jessica Heaton APRN Active TAMIFLU 75 MG ORAL CAPSULE 1 po BID x 5 days 0 OSELTAMIVIR PHOSPHATE 55517816840 No Longer Active Jose Zhong MD Activ e ZITHROMAX Z-EMIL 250 MG ORAL TABLET 2 today, then 1 daily for 4 d ays AZITHROMYCIN 34455534853 No Longer Active Arie Casper MD Active PROTONIX 40 MG ORAL TABLET DELAYED RELEASE 1 po q a.m. PANTOPRAZOLE SODIUM 14887633542 No Longer Active Arie Casper MD Active BACTRIM DS 800-160 MG ORAL TABLET 1 tab by mouth twice daily 201 05/02/30 TRIMETHOPRIM-SULFAMETHOXAZOLE 13714815437 No Longer Active R wyablerto Crawford Active NEXPLANON IMPLANT right arm subcutaneously ETONOGESTREL IMPL 60953423370 No Longer Active Brii Areboris HONE OPERATOR Active TUSSIONEX PENNKINETIC ER 10-8 MG/5ML ORAL SUSPENSION E XTENDED RELEASE 5ml po q12hr PRN Cough HYDROCOD POLST-CHLORPHEN POLST 5 3895105899 No Longer Active Brii Arell HONE OPERATOR Active CETIRIZINE HCL 10 MG ORAL TABLET 1 po qd PRN Allergies CETIRIZINE HCL 89571956152 No Longer Active Brii Arell HONE OPERATOR Activ e PREDNISONE 20 MG ORAL TABLET 2 tabs daily for 3 days, 1 tab daily for 3 days, 1/2 tab daily for 2 days PREDNISONE 02436911680 No Longer Active Arie Casper MD Active LOMOTIL 2.5-0.025 MG ORAL TABLET 1 tab po four times a day as needed for diarrhea DIPHENOXYLATE-ATROPINE 64527578229 No Lo nger Active Arie Casper MD Active ZOLOFT 50 MG ORAL TABLET 1 tablet by mouth daily 12/08 SERTRALINE HCL 24479838605 No Longer Active Arie Casper MD Ac tive NAPROXEN 500 MG ORAL TABLET Take 1 tab BID NAPR OXEN 59013688817 No Longer Active Arie Casper MD Active CEFDINIR 300 MG ORAL CAPSULE 1 po BID x 10 days CEFDINIR 30224101846 No Longer Active Brii Russ APRN Active PREDNISONE 20 MG ORAL TABLET 1 tablet daily for airway inflammat ion PREDNISONE 11574212754 No Longer Active Brii Russ APRN A ctive CEFDINIR 300 MG ORAL CAPSULE 1 po BID x 10 days CEFDINIR 31461369956 No Longer Active Jono Gagnon DO Active FLONASE 50 MCG/ACT NASAL SUSPENSION 1 spray each nostr il twice daily for allergies and runny nose until gone FLUT ICASONE PROPIONATE 22225838400 No Longer Active Jono Gagnon DO Active ALPRAZOLAM 0.25 MG ORAL TABLET 1 tablet by mouth every 8 hours as needed for stress ALPRAZOLAM 44371924854 No Longer Active Jono Gagnon DO Active ZITHROMAX Z-EMIL 250 MG ORAL TABLET 2 today, then 1 daily for 4 d ays AZITHROMYCIN 46374305128 No Longer Active Arie Casper MD Active PREDNISONE 20 MG ORAL TABLET 2 tabs daily for 3 days, 1 tab daily for 3 days, 1/2 tab daily for 2 days PREDNISONE 07341923424 No Longer Active Brii Russ APRN Active PREDNISONE 20 MG ORAL TABLET 1 tablet twice daily for 2 days, then 1 tablet once daily for 2 days PREDNISONE 10041332977 No Longer Active Brii Russ APRN Active PROMETHAZINE HCL 12.5 MG ORAL TABLET 1 tablet by mouth every 6 hours as needed for nausea/vomiting PROMETHAZINE HCL 63348953995 No L onger Active Jono Gagnon DO Active CITRATE OF MAGNESIA ORAL SOLUTION 1 bottle today for constipatio n MAGNESIUM CITRATE 49347560813 No Longer Active Jono Gagnon DO Active ZOFRAN 4 MG ORAL TABLET 1 TAB PO Q 6 HRS PRN NAUSEA 07/10/15 ONDANSETRON HCL 81813698820 No Longer Active Brii Russ APRN Acti ve LOMOTIL 2.5-0.025 MG ORAL TABLET 1 to 2 four times a day as needed for diarrhea DIPHENOXYLATE-ATROPINE 57391769682 No Longer Active January Russ APRN Active AMOXICILLIN 500 MG ORAL TABLET 2 tabs twice a day for 10 days 07/09/11 AMOXICILLIN 11104050056 No Longer Active Brii Russ APRN Active CYCLOBENZAPRINE HCL 10 MG ORAL TABLET 1/2 - 1 tablet b y mouth three times daily as needed for muscle spasm/pain CYCLOBENZAPRINE HCL 31903719426 No Longer Active Arie Casper MD Active LOMOTIL 2.5-0.025 MG ORAL TABLET 1 to 2 four times a day as needed for diarrhea DIPHENOXYLATE-ATROPINE 39997967744 No Longer Active Fozia Casper MD Active MACROBID 100 MG ORAL CAPSULE 1 cap by mouth twice daily NITROFURANTOIN MONOHYD MACRO 83432998342 No Longer Active Arie Casper MD Active ZYRTEC ALLERGY 10 MG ORAL CAPSULE 1 po qd CE TIRIZINE HCL 93131265877 No Longer Active Arie Casper MD Active AZITHROMYCIN 250 MG ORAL TABLET 2 po qd x 1 day, then 1 po q d x 4 days AZITHROMYCIN 73427840637 No Longer Active Jessica salgado APRN Active PREDNISONE 20 MG ORAL TABLET 2 tabs daily for 3 days, 1 tab daily for 3 days, 1/2 tab daily for 2 days PREDNISONE 54842800028 No Longer Active Jessica Heaton APRN Active PROMETHAZINE HCL 25 MG ORAL TABLET 1 four times a day as nee ded for vomiting PROMETHAZINE HCL 15308097063 No Longer Active Myrna Roberto MD Active BACTRIM DS 800-160 MG ORAL TABLET 1 twice a day 05/30 SULFAMETHOXAZOLE-TRIMETHOPRIM 87123618958 No Longer Active Myrna Roberto MD Active VICKS DAYQUIL SEVERE COLD/FLU TABLET 1 tab every 6 hours prn 201 02/22/17 [id number] TABS 59810139960 No Longer Active K fany Roberto MD Active GUAIFENESIN-CODEINE 100-10 MG/5ML ORAL SYRUP 2 tsp every 6 hours prn GUAIFENESIN-CODEINE 04052543665 No Longer Active Myrna Roberto MD Active NAPROXEN 500 MG ORAL TABLET one tab PO BID NAPR OXEN 27679101667 No Longer Active Myrna Roberto MD Active AUGMENTIN 875-125 MG ORAL TABLET 1 tab by mouth twice daily with food AMOXICILLIN-POT CLAVULANATE 31620701318 No Longer Act zaid Liliana Estrada MD PhD Active AMOXICILLIN 500 MG ORAL CAPSULE 1 tab by mouth 3 times daily 201 02/21/05 AMOXICILLIN 07698982695 No Longer Active Liliana Estrada MD PhD Active TESSALON PERLES 100 MG ORAL CAPSULE 1 tablet by mouth 3 times da cory BENZONATATE 33891898788 No Longer Active Liliana Estrada MD PhD Active FLAGYL 500 MG ORAL TABLET 1 tablet by mouth two times daily 2014 METRONIDAZOLE 64930222302 No Longer Active Nilam Raida Ac tive ZITHROMAX 250 MG ORAL TABLET 2 po today, then 1 po q days 2-5 20 06/08/16 AZITHROMYCIN 54690244834 No Longer Active Arie Casper MD Active VITAMINS 0.8 MG ORAL TABLET take 1 tab po qday [id number] 81368988650 No Longer Active Arie Casper MD Active IBUPROFEN 800 MG ORAL TABLET take one po Q 8 hours 201 02/01/16 IBUPROFEN 81819919100 No Longer Active Arie Casper MD Acti ve [facility] TUSSIN COUGH/COLD CF 5-10-100 MG/5ML ORAL LIQUID 2 teasp oons every 4 hours [id number] 09730900401 No Longer Active Blaine Casper MD Active COMTREX COLD/COUGH DAY/NITE MS 5-2-10-325 MG ORAL 2 caps deja ry 4 hours [id number] 95190041133 No Longer Active Landon Casper MD Active CHLORASEPTIC MAX SORE THROAT 15-10 MG MOUTH/THROAT LOZENGE 1 every 2 hours prn BENZOCAINE-MENTHOL 67296958824 No Longer Active Arie Casper MD Active PREDNISONE 20 MG ORAL TABLET 2 tabs daily for 3 days, 1 tab daily for 3 days, 1/2 tab daily for 2 days PREDNISONE 22058418484 No Longer Active Jose Zhong MD Active AZITHROMYCIN 250 MG ORAL TABLET 2 po qd x 1 day, then 1 po q d x 4 days AZITHROMYCIN 63019749256 No Longer Active Jose Mcwilliams MD Active ZOFRAN ODT 4 MG ORAL TABLET DISINTEGRATING 1 po q6hr PRN Nausea ONDANSETRON 50069878927 No Longer Active Rich Rosales MD Active ZOFRAN 4 MG ORAL TABLET 1 tablet every 4 hours ONDANSETRON HCL 88094882757 No Longer Active Rich Rosales MD Activ e MUCINEX 600 MG ORAL TABLET EXTENDED RELEASE 12 HOUR Ta ke 1-2 tablets every 12 hours GUAIFENESIN 72960988410 No Longer Active Rich Rosales MD Active BACTRIM 400-80 MG ORAL TABLET take one po BID SULFAMETHOXAZOLE-TRIMETHOPRIM 63018001028 No Longer Active Abelardo HERNANDEZ Active AZITHROMYCIN 500 MG ORAL TABLET 1 PO q day x 6 days 03/02/23 AZITHROMYCIN 68531906905 No Longer Active Tin HERNANDEZ Activ e ZITHROMAX 250 MG ORAL TABLET 2 po today, then 1 po q days 2-5 20 10/03/08 AZITHROMYCIN 63601507211 No Longer Active Arie Casper MD Active ZITHROMAX 250 MG ORAL TABLET 2 po today, then 1 po q days 2-5 20 09/23/25 AZITHROMYCIN 79426625379 No Longer Active Arie Casper MD Active AMOXICILLIN 500 MG ORAL CAPSULE 1 tab by mouth 3 times daily 201 11/24/09 AMOXICILLIN 19370226496 No Longer Active Arie Casper MD Active BACTRIM DS 800-160 MG ORAL TABLET 1 tab by mouth twice daily 201 11/03/14 TRIMETHOPRIM-SULFAMETHOXAZOLE 94559908484 No Longer Active Fozia Casper MD Active AMOXICILLIN 500 MG ORAL TABLET take 1 tab po TID 08/05 AMOXICILLIN 02075331462 No Longer Active Arie Casper MD Acti ve BACTRIM DS 800-160 MG ORAL TABLET 1 tab by mouth twice daily 201 11/03/14 BACTRIM DS 800-160 MG ORAL TABLET 069962 TRIMETHOPRIM-SULFAMETHOXAZOLE Inactive MUCINEX 600 MG ORAL TABLET EXTENDED RELEASE 12 HOUR Ta ke 1-2 tablets every 12 hours MUCINEX 600 MG ORAL TABLET EXTENDED RELEA SE 12 HOUR GUAIFENESIN Inactive ZOFRAN 4 MG ORAL TABLET 1 tablet every 4 hours ZOFRAN 4 MG ORAL TABLET 488930 ONDANSETRON HCL Inactive ZOFRAN ODT 4 MG ORAL TABLET DISINTEGRATING 1 po q6hr PRN Nausea ZOFRAN ODT 4 MG ORAL TABLET DISINTEGRATING 480557 ONDAN SETRON Inactive CHLORASEPTIC MAX SORE THROAT 15-10 MG MOUTH/THROAT LOZENGE 1 every 2 hours prn CHLORASEPTIC MAX SORE THROAT 15-10 MG MOUTH/THROAT LOZENGE BENZOCAINE-MENTHOL Inactive COMTREX COLD/COUGH DAY/NITE MS 5-2-10-325 MG ORAL 2 caps deja ry 4 hours COMTREX COLD/COUGH DAY/NITE MS 5-2-10-325 MG ORA L [id number] Inactive [facility] TUSSIN COUGH/COLD CF 5-10-100 MG/5ML ORAL LIQUID 2 teasp oons every 4 hours [facility] TUSSIN COUGH/COLD CF 5-10-100 MG/5ML ORAL LI QUID [id number] Inactive IBUPROFEN 800 MG ORAL TABLET take one po Q 8 hours 201 02/01/16 IBUPROFEN 800 MG ORAL TABLET 143061 IBUPROFEN Inactive VITAMINS 0.8 MG ORAL TABLET take 1 tab po qday VITAMINS 0.8 MG ORAL TABLET [id number] Inactive TESSALON PERLES 100 MG ORAL CAPSULE 1 tablet by mouth 3 times da cory TESSALON PERLES 100 MG ORAL CAPSULE 339009 BENZONATATE Inactive AMOXICILLIN 500 MG ORAL CAPSULE 1 tab by mouth 3 times daily 201 02/21/05 AMOXICILLIN 500 MG ORAL CAPSULE 710745 AMOXICILLIN Inactive GUAIFENESIN-CODEINE 100-10 MG/5ML ORAL SYRUP 2 tsp every 6 hours prn GUAIFENESIN-CODEINE 100-10 MG/5ML ORAL SYRUP 406162 GUAIFENESIN-CODEINE Inactive VICKS DAYQUIL SEVERE COLD/FLU TABLET 1 tab every 6 hours prn 201 02/22/17 VICKS DAYQUIL SEVERE COLD/FLU TABLET PHENYLEPHRI [id number]-GV-APAP TABS Inactive BACTRIM DS 800-160 MG ORAL TABLET 1 twice a day 05/30 BACTRIM DS 800-160 MG ORAL TABLET 156546 SULFAMETHOXAZOLE-TRIMETHOPRIM Inactiv e PROMETHAZINE HCL 25 MG ORAL TABLET 1 four times a day as nee ded for vomiting PROMETHAZINE HCL 25 MG ORAL TABLET 665731 PROMETHAZINE HCL Inactive ZYRTEC ALLERGY 10 MG ORAL CAPSULE 1 po qd ZYRTEC ALLERGY 10 MG ORAL CAPSULE CETIRIZINE HCL Inactive MACROBID 100 MG ORAL CAPSULE 1 cap by mouth twice daily MACROBID 100 MG ORAL CAPSULE 5493554 NITROFURANTOIN MONOHYD MACRO In active LOMOTIL 2.5-0.025 MG ORAL TABLET 1 to 2 four times a day as needed for diarrhea LOMOTIL 2.5-0.025 MG ORAL TABLET 2654156 DIPHENOXYLATE-ATROPINE Inactive CYCLOBENZAPRINE HCL 10 MG ORAL TABLET 1/2 - 1 tablet b y mouth three times daily as needed for muscle spasm/pain CYCLOBEN ZAPRINE HCL 10 MG ORAL TABLET 199316 CYCLOBENZAPRINE HCL Inactive AMOXICILLIN 500 MG ORAL TABLET 2 tabs twice a day for 10 days 07/09/11 AMOXICILLIN 500 MG ORAL TABLET 501376 AMOXICILLIN I nactive LOMOTIL 2.5-0.025 MG ORAL TABLET 1 to 2 four times a day as needed for diarrhea LOMOTIL 2.5-0.025 MG ORAL TABLET 6833817 DIPHENOXYLATE-ATROPINE Inactive ZOFRAN 4 MG ORAL TABLET 1 TAB PO Q 6 HRS PRN NAUSEA 07/10/15 ZOFRAN 4 MG ORAL TABLET 032331 ONDANSETRON HCL Inactive CITRATE OF MAGNESIA ORAL SOLUTION 1 bottle today for constipatio n CITRATE OF MAGNESIA ORAL SOLUTION 1174484 MAGNESIUM CITR ATE Inactive PROMETHAZINE HCL 12.5 MG ORAL TABLET 1 tablet by mouth every 6 hours as needed for nausea/vomiting PROMETHAZINE HCL 12.5 MG ORA L TABLET 144551 PROMETHAZINE HCL Inactive PREDNISONE 20 MG ORAL TABLET 1 tablet twice daily for 2 days, then 1 tablet once daily for 2 days PREDNISONE 20 MG ORAL TABLET 459100 PREDNISONE Inactive ALPRAZOLAM 0.25 MG ORAL TABLET 1 tablet by mouth every 8 hours as needed for stress ALPRAZOLAM 0.25 MG ORAL TABLET 942649 ALPRA ZOLAM Inactive FLONASE 50 MCG/ACT NASAL SUSPENSION 1 spray each nostr il twice daily for allergies and runny nose until gone FLON ASE 50 MCG/ACT NASAL SUSPENSION 2634026 FLUTICASONE PROPIONATE Inactive PREDNISONE 20 MG ORAL TABLET 1 tablet daily for airway inflammat ion PREDNISONE 20 MG ORAL TABLET 505595 PREDNISONE Arlen ctive NAPROXEN 500 MG ORAL TABLET Take 1 tab BID NAPROXEN 500 MG ORAL TABLET 499209 NAPROXEN Inactive ZOLOFT 50 MG ORAL TABLET 1 tablet by mouth daily 12/08 ZOLOFT 50 MG ORAL TABLET 984301 SERTRALINE HCL Inactive LOMOTIL 2.5-0.025 MG ORAL TABLET 1 tab po four times a day as needed for diarrhea LOMOTIL 2.5-0.025 MG ORAL TABLET 5754947 DIPHENOXYLATE-ATROPINE Inactive CETIRIZINE HCL 10 MG ORAL TABLET 1 po qd PRN Allergies CETIRIZINE HCL 10 MG ORAL TABLET 3999610 CETIRIZINE HCL Inactiv e TUSSIONEX PENNKINETIC ER 10-8 MG/5ML ORAL SUSPENSION E XTENDED RELEASE 5ml po q12hr PRN Cough TUSSIONEX PENNKINETI C ER 10-8 MG/5ML ORAL SUSPENSION EXTENDED RELEASE HYDROCOD POLST-CHLORPHEN POLST I nactive NEXPLANON IMPLANT right arm subcutaneously NEXPLANON IMPLANT ETONOGESTREL IMPL Inactive PROTONIX 40 MG ORAL TABLET DELAYED RELEASE 1 po q a.m. PROTONIX 40 MG ORAL TABLET DELAYED RELEASE 309690 PANTOPRAZOLE SODI UM Inactive CHERATUSSIN AC 100-10 MG/5ML ORAL SYRUP 1 tsp by mouth every 4 hours as needed for cough CHERATUSSIN AC 100-10 MG/5ML ORAL SYRUP 9 23967 GUAIFENESIN-CODEINE Inactive GUAIFENESIN DM 400-20 MG ORAL TABLET 1 pill by mouth t wice daily, if needed for cough GUAIFENESIN DM 400-20 MG ORAL TABLET 1140 222 DEXTROMETHORPHAN-GUAIFENESIN Inactive TUSSIONEX PENNKINETIC ER 10-8 MG/5ML ORAL SUSPENSION E XTENDED RELEASE 5ml po q12hr PRN Cough TUSSIONEX PENNKINETI C ER 10-8 MG/5ML ORAL SUSPENSION EXTENDED RELEASE HYDROCOD POLST-CHLORPHEN POLST I nactive AMOXICILLIN 500 MG ORAL TABLET take 1 tab po TID 08/05 AMOXICILLIN 500 MG ORAL TABLET 528454 AMOXICILLIN Inactive AMOXICILLIN 500 MG ORAL CAPSULE 1 tab by mouth 3 times daily 201 11/24/09 AMOXICILLIN 500 MG ORAL CAPSULE 858453 AMOXICILLIN Inactive ZITHROMAX 250 MG ORAL TABLET 2 po today, then 1 po q days 2-5 20 09/23/25 ZITHROMAX 250 MG ORAL TABLET 687462 AZITHROMYCIN [place] ctive ZITHROMAX 250 MG ORAL TABLET 2 po today, then 1 po q days 2-5 20 10/03/08 ZITHROMAX 250 MG ORAL TABLET 189654 AZITHROMYCIN [place] ctive AZITHROMYCIN 500 MG ORAL TABLET 1 PO q day x 6 days 20 03/02/23 AZITHROMYCIN 500 MG ORAL TABLET 0063676 AZITHROMYCIN Inactive BACTRIM 400-80 MG ORAL TABLET take one po BID BACTRIM 400- 80 MG ORAL TABLET 519618 SULFAMETHOXAZOLE-TRIMETHOPRIM Inactive AZITHROMYCIN 250 MG ORAL TABLET 2 po qd x 1 day, then 1 po q d x 4 days AZITHROMYCIN 250 MG ORAL TABLET 007782 AZITHROMY ALLISON Inactive PREDNISONE 20 MG ORAL TABLET 2 tabs daily for 3 days, 1 tab daily for 3 days, 1/2 tab daily for 2 days PREDNISONE 20 MG ORAL T ABLET 566790 PREDNISONE Inactive ZITHROMAX 250 MG ORAL TABLET 2 po today, then 1 po q days 2-5 20 06/08/16 ZITHROMAX 250 MG ORAL TABLET 160507 AZITHROMYCIN [place] ctive FLAGYL 500 MG ORAL TABLET 1 tablet by mouth two times daily 2014 FLAGYL 500 MG ORAL TABLET 709048 METRONIDAZOLE Inacti ve AUGMENTIN 875-125 MG ORAL TABLET 1 tab by mouth twice daily with food AUGMENTIN 875-125 MG ORAL TABLET 298753 AMOXICIL ELSA-POT CLAVULANATE Inactive NAPROXEN 500 MG ORAL TABLET one tab PO BID NAPROXEN 500 MG ORAL TABLET 422084 NAPROXEN Inactive PREDNISONE 20 MG ORAL TABLET 2 tabs daily for 3 days, 1 tab daily for 3 days, 1/2 tab daily for 2 days PREDNISONE 20 MG ORAL T ABLET 700821 PREDNISONE Inactive AZITHROMYCIN 250 MG ORAL TABLET 2 po qd x 1 day, then 1 po q d x 4 days AZITHROMYCIN 250 MG ORAL TABLET 745920 AZITHROMY ALLISON Inactive PREDNISONE 20 MG ORAL TABLET 2 tabs daily for 3 days, 1 tab daily for 3 days, 1/2 tab daily for 2 days PREDNISONE 20 MG ORAL T ABLET 422285 PREDNISONE Inactive ZITHROMAX Z-EMIL 250 MG ORAL TABLET 2 today, then 1 daily for 4 d ays ZITHROMAX Z-EMIL 250 MG ORAL TABLET 435831 AZITHROMYCIN Inactive CEFDINIR 300 MG ORAL CAPSULE 1 po BID x 10 days 12/18 CEFDINIR 300 MG ORAL CAPSULE 162507 CEFDINIR Inactive CEFDINIR 300 MG ORAL CAPSULE 1 po BID x 10 days CEFDINIR 300 MG ORAL CAPSULE 450706 CEFDINIR Inactive PREDNISONE 20 MG ORAL TABLET 2 tabs daily for 3 days, 1 tab daily for 3 days, 1/2 tab daily for 2 days PREDNISONE 20 MG ORAL T ABLET 512224 PREDNISONE Inactive BACTRIM DS 800-160 MG ORAL TABLET 1 tab by mouth twice daily 201 05/02/30 BACTRIM DS 800-160 MG ORAL TABLET 387227 TRIMETHOPRIM-SULFAMETHOXAZOLE Inactive ZITHROMAX Z-EMIL 250 MG ORAL TABLET 2 today, then 1 daily for 4 d ays ZITHROMAX Z-EMIL 250 MG ORAL TABLET 632208 AZITHROMYCIN Inactive TAMIFLU 75 MG ORAL CAPSULE 1 po BID x 5 days 0 TAMIFLU 75 MG ORAL CAPSULE 495940 OSELTAMIVIR PHOSPHATE Inactive CEFDINIR 300 MG ORAL CAPSULE 1 po BID x 10 days 01/03 CEFDINIR 300 MG ORAL CAPSULE 047146 CEFDINIR Inactive ZITHROMAX Z-EMIL 250 MG TABS Take two tablets today and then 1 tablet daily for 4 days ZITHROMAX Z-EMIL 250 MG TABS 550731 AZITHROM YCIN Inactive AMOXICILLIN 875 MG ORAL TABLET 1 tab by mouth twice daily AMOXICILLIN 875 MG ORAL TABLET 641015 AMOXICILLIN Inactive Advance Directives Directive Description Start [...] Negative Encounters Code Encounter Date Provider Facility CPT-93702 [id number] Vst-Est Level III 09:41:31 CDT Arie Casper MD [facility] CPT-16457 [id number] Vst-Est Level III 18:20:11 CDT Me lobito Russ APRN [facility] CPT-41472 [id number] Vst-Est Level III 17:21:41 CDT Me lobito Russ Formerly named [facility] CPT-68711 [id number] Vst-Est Level IV 13:30:22 C NIC Casper MD [facility] CPT-53301 Level 4 Est. Patient 13:05:26 CDT Myrna Real Bernabe maldonado MD [facility]-24993 [id number] Vst-Est Level IV 20:50:21 C DT Arie Casper MD [facility] CPT-05303 Level 3 Est. Patient 11:49:34 HAND PACKAGER Jessica boyd [facility]-92594 Level 3 Est. Patient 14:55:50 HAND PACKAGER Jose Zhong MD [facility] CPT-79912 Level 3 Est. Patient 10:21:41 HAND PACKAGER Arie mcqueen MD [facility] CPT-56994 Level 3 Est. Patient 11:35:15 HAND PACKAGER Arie mcqueen MD [facility] CPT-07421 Level 3 Est. Patient 15:40:28 CDT Brii Are [facility] CPT-03199 Level 3 Est. Patient 16:40:36 CDT Arie mcqueen MD [facility]-99114 Level 4 Est. Patient 15:29:22 HAND PACKAGER Arie mcqueen MD [facility] CPT-21886 Level 3 Est. Patient 15:18:16 HAND PACKAGER Jono black DO [facility] CPT-63279 Level 4 Est. Patient 12:08:40 HAND PACKAGER Brii Are [facility] CPT-15976 Level 3 Est. Patient 09:24:42 CDT Brii Are [facility] CPT-58548 Level 3 Est. Patient 09:12:56 CDT Arie mcqueen MD [facility] CPT-66945 Level 3 Est. Patient 16:40:54 CDT Jose Zhong MD [facility] CPT-82006 Level 2 Est. Patient 13:01:13 CDT Brii Yepez ll Formerly named [facility] CPT-22189 Level 3 Est. Patient 11:55:30 HAND PACKAGER Jono black DO [facility] CPT-77101 Level 3 Est. Patient 09:52:36 HAND PACKAGER Brii Yepez ll [facility] CPT-73017 Level 3 Est. Patient 16:25:33 HAND PACKAGER Rich Rosales MD [facility] CPT-76413 Level 3 Est. Patient 20:33:55 CDT Arie mcqueen MD [facility] CPT-13153 Level 3 Est. Patient 14:18:20 CDT Rich Rosales MD [facility] CPT-78744 Level 4 Est. Patient 09:34:31 CDT Arie mcqueen MD [facility] CPT-49577 Level 3 Est. Patient 09:08:55 HAND PACKAGER Liliana vincent MD PhD [facility]-68439 Level 3 Est. Patient 16:44:07 HAND PACKAGER Arie mcqueen MD [facility] CPT-90794 Level 3 Est. Patient 10:44:27 CDT Arie mcqueen MD [facility] CPT-09943 Level 3 Est. Patient 08:55:41 CDT Jose Zhong MD [facility] CPT-88231 Level 3 Est. Patient 18:37:31 CDT Liliana vincent MD PhD [facility]-41565 Level 3 Est. Patient 14:28:23 CDT Abelardo HERNANDEZ [facility] CPT-90519 Level 3 Est. Patient 15:18:13 HAND PACKAGER Arie mcqueen MD [facility] CPT-51483 Level 3 Est. Patient 10:11:29 HAND PACKAGER Arie mcqueen MD [facility] CPT-53706 Level 3 Est. Patient 10:55:57 HAND PACKAGER Jono Cheema sofia DO [facility] CPT-13004 Level 3 Est. Patient 17:29:05 CDT Arie mcqueen MD [facility] Procedures Code Procedure Name Date Entry Date Standard Desc ription CPT-10676 Sono Soft Tissue Head and Neck - XRAY US E ONLY 17:10:14 CDT CPT-22673 Ear Wash with irrigation 17:21:41 CDT 07/04 CPT-81369 Nexplanon Removal 15:40:28 CDT CPT-10885 Sono transvag pelvis non OB uterus ovari es cervix - XRAY USE ONLY 08:58:14 HAND PACKAGER CPT-35982 UA w micro - LAB USE ONLY 16:04:56 HAND PACKAGER 2015 CPT-40239 Wet Prep/GEN - LAB USE ONLY 16:04:56 HAND PACKAGER 20 08/10/29 CPT-15002 First Vx - Ix admin via ID I M or jet injects without counseling by physician 16:57:10 CDT CPT-51238 Fluzone Preservative Free Intramuscular Suspension 16:57:10 CDT CPT-J0696 Rocephin 1000 mg (Ceftriaxone) 11:49:23 CDT CPT-J1040 Depo Medrol 80 mg (Methyl Prednisolone A cetate) 11:49:23 CDT CPT-J1100 Decadron 8mg (Dexamethasone) 11:49:23 CDT 2 CPT-26689 Abx/Therapy Injection 11:49:23 CDT CPT-27268 Abx/Therapy Injection 11:49:23 CDT CPT-15898 Abd compl w upright 09:07:26 HAND PACKAGER CPT-13686 Ear Wash 16:12:47 HAND PACKAGER CPT-OV Office Visit 11:12:01 CDT CPT-OV Office Visit 15:30:23 CDT CPT-23871 Sono pelvis non OB uterus ovaries cervix 15:50:44 CDT CPT-66697 Hand comp min 3V 16:42:32 CDT CPT-72438 Abd compl w upright 12:17:01 CDT CPT-47329 Nexplanon Placement 15:07:39 HAND PACKAGER CPT-29222 Removal of IUD 15:07:39 HAND PACKAGER CPT-35610 TB Tubersol 12:09:32 CDT CPT-29030 TB Tubersol 13:55:43 CDT
--- OUTSIDE RECORDS SUMMARY | 2020-03-03 07:54 | XMS REPORT | Clinical Summary ---
Author Author Admin, Diamante Marcelo Organization [facility] Address Unknown Phone Unavailable Allergies, Adverse Reactions, [...] Acute maxillary sinusitis Neck pain 723.1 Active Liilana Estrada MD PhD Cervicalgia Dyspareunia 625.0 Active [...] with depression 300.4 Active Brii Ramirez l [employer] Dysthymic disorder URI 465.9 Active Jono [...] lymph node 785.6 Active Brii Are ll [employer] Enlargement of lymph nodes Influenza Vaccination for [...] MG ORAL CAPSULE 1 po tid CEPHALEXIN 911517 85946 Active Brii Russ APRN Active PROTONIX 40 MG ORAL TABLET DELAYED RELEASE 1 pill by m outh daily, for acid reflux PANTOPRAZOLE SODIUM 39037002854 Active Roseann Crawford Active AMOXICILLIN 875 MG ORAL TABLET 1 tab by mouth twice daily 1 AMOXICILLIN 05478037306 No Longer Active Brii Russ APRN Active ALPRAZOLAM 0.25 MG ORAL TABLET 1 tablet by mouth twice a day as needed for stress/anxiety ALPRAZOLAM 64625218849 Active KELLIE Escobar Active ESCITALOPRAM OXALATE 10 MG ORAL TABLET take 1 tab po qhs for mod 20 10/04/18 ESCITALOPRAM OXALATE 65302991878 Active Arie Casper MD Active TUSSIONEX PENNKINETIC ER 10-8 MG/5ML ORAL SUSPENSION E XTENDED RELEASE 5ml po q12hr PRN Cough HYDROCOD POLST-CHLORPHEN POLST 5 3179626958 No Longer Active Myrna Roberto MD Active ZITHROMAX Z-EMIL 250 MG TABS Take two tablets today and then 1 tablet daily for 4 days AZITHROMYCIN 11708080497 No Longer Active Flaco Rosales MD Active GUAIFENESIN DM 400-20 MG ORAL TABLET 1 pill by mouth t wice daily, if needed for cough DEXTROMETHORPHAN-GUAIFENESIN 24185720420 No Longer Active Rich Rosales MD Active CEFDINIR 300 MG ORAL CAPSULE 1 po BID x 10 days CEFDINIR 41498569641 No Longer Active Jillina Frazell [employer] Active CHERATUSSIN AC 100-10 MG/5ML ORAL SYRUP 1 tsp by mouth every 4 hours as needed for cough GUAIFENESIN-CODEINE 27035841483 No Longe r Active Jessica Faithnaomi [employer] Active TAMIFLU 75 MG ORAL CAPSULE 1 po BID x 5 days 0 OSELTAMIVIR PHOSPHATE 98758976984 No Longer Active Jose Zhong MD Activ e ZITHROMAX Z-EMIL 250 MG ORAL TABLET 2 today, then 1 daily for 4 d ays AZITHROMYCIN 91638323995 No Longer Active Arie Casper MD Active PROTONIX 40 MG ORAL TABLET DELAYED RELEASE 1 po q a.m. PANTOPRAZOLE SODIUM 65500986135 No Longer Active Arie Casper MD Active BACTRIM DS 800-160 MG ORAL TABLET 1 tab by mouth twice daily 201 05/02/30 TRIMETHOPRIM-SULFAMETHOXAZOLE 13681466136 No Longer Active R [facility] Ty Active NEXPLANON IMPLANT right arm subcutaneously ETONOGESTREL IMPL 42865926527 No Longer Active Brii Arell [employer] Active TUSSIONEX PENNKINETIC ER 10-8 MG/5ML ORAL SUSPENSION E XTENDED RELEASE 5ml po q12hr PRN Cough HYDROCOD POLST-CHLORPHEN POLST 5 1863526294 No Longer Active Brii Arell [employer] Active CETIRIZINE HCL 10 MG ORAL TABLET 1 po qd PRN Allergies CETIRIZINE HCL 05527041850 No Longer Active Brii Arell [employer] Activ e PREDNISONE 20 MG ORAL TABLET 2 tabs daily for 3 days, 1 tab daily for 3 days, 1/2 tab daily for 2 days PREDNISONE 68579545408 No Longer Active Arie Casper MD Active LOMOTIL 2.5-0.025 MG ORAL TABLET 1 tab po four times a day as needed for diarrhea DIPHENOXYLATE-ATROPINE 65350901420 No Lo nger Active Arie Casper MD Active ZOLOFT 50 MG ORAL TABLET 1 tablet by mouth daily 12/08 SERTRALINE HCL 10307210097 No Longer Active Arie Casper MD Ac tive NAPROXEN 500 MG ORAL TABLET Take 1 tab BID NAPR OXEN 70369472140 No Longer Active Arie Casper MD Active CEFDINIR 300 MG ORAL CAPSULE 1 po BID x 10 days CEFDINIR 15478708223 No Longer Active Brii Russ APRN Active PREDNISONE 20 MG ORAL TABLET 1 tablet daily for airway inflammat ion PREDNISONE 77042256497 No Longer Active Brii Russ APRN A ctive CEFDINIR 300 MG ORAL CAPSULE 1 po BID x 10 days CEFDINIR 17164987797 No Longer Active Jono Gagnon DO Active FLONASE 50 MCG/ACT NASAL SUSPENSION 1 spray each nostr il twice daily for allergies and runny nose until gone FLUT ICASONE PROPIONATE 84022278210 No Longer Active Jono Gagnon DO Active ALPRAZOLAM 0.25 MG ORAL TABLET 1 tablet by mouth every 8 hours as needed for stress ALPRAZOLAM 11881098033 No Longer Active Jono Gagnon DO Active ZITHROMAX Z-EMIL 250 MG ORAL TABLET 2 today, then 1 daily for 4 d ays AZITHROMYCIN 79990635666 No Longer Active Arie Casper MD Active PREDNISONE 20 MG ORAL TABLET 2 tabs daily for 3 days, 1 tab daily for 3 days, 1/2 tab daily for 2 days PREDNISONE 79925749309 No Longer Active Brii Russ APRN Active PREDNISONE 20 MG ORAL TABLET 1 tablet twice daily for 2 days, then 1 tablet once daily for 2 days PREDNISONE 13497900346 No Longer Active Brii Russ APRN Active PROMETHAZINE HCL 12.5 MG ORAL TABLET 1 tablet by mouth every 6 hours as needed for nausea/vomiting PROMETHAZINE HCL 86628944209 No L onger Active Jono Gagnon DO Active CITRATE OF MAGNESIA ORAL SOLUTION 1 bottle today for constipatio n MAGNESIUM CITRATE 91723298342 No Longer Active Jono Gagnon DO Active ZOFRAN 4 MG ORAL TABLET 1 TAB PO Q 6 HRS PRN NAUSEA 07/10/15 ONDANSETRON HCL 56665187776 No Longer Active Brii Russ APRN Acti ve LOMOTIL 2.5-0.025 MG ORAL TABLET 1 to 2 four times a day as needed for diarrhea DIPHENOXYLATE-ATROPINE 75534211058 No Longer Active January Russ APRN Active AMOXICILLIN 500 MG ORAL TABLET 2 tabs twice a day for 10 days 07/09/11 AMOXICILLIN 84190628629 No Longer Active Brii Russ APRN Active CYCLOBENZAPRINE HCL 10 MG ORAL TABLET 1/2 - 1 tablet b y mouth three times daily as needed for muscle spasm/pain CYCLOBENZAPRINE HCL 48491784136 No Longer Active Arie Casper MD Active LOMOTIL 2.5-0.025 MG ORAL TABLET 1 to 2 four times a day as needed for diarrhea DIPHENOXYLATE-ATROPINE 51922520874 No Longer Active Fozia Casper MD Active MACROBID 100 MG ORAL CAPSULE 1 cap by mouth twice daily NITROFURANTOIN MONOHYD MACRO 55549766077 No Longer Active Arie Casper MD Active ZYRTEC ALLERGY 10 MG ORAL CAPSULE 1 po qd CE TIRIZINE HCL 71313946180 No Longer Active Arie Casper MD Active AZITHROMYCIN 250 MG ORAL TABLET 2 po qd x 1 day, then 1 po q d x 4 days AZITHROMYCIN 18029745549 No Longer Active Jessica salgado APRN Active PREDNISONE 20 MG ORAL TABLET 2 tabs daily for 3 days, 1 tab daily for 3 days, 1/2 tab daily for 2 days PREDNISONE 78875146777 No Longer Active Jessica Heaton APRN Active PROMETHAZINE HCL 25 MG ORAL TABLET 1 four times a day as nee ded for vomiting PROMETHAZINE HCL 81802894102 No Longer Active Myrna Roberto MD Active BACTRIM DS 800-160 MG ORAL TABLET 1 twice a day 05/30 SULFAMETHOXAZOLE-TRIMETHOPRIM 12760950258 No Longer Active Myrna Roberto MD Active VICKS DAYQUIL SEVERE COLD/FLU TABLET 1 tab every 6 hours prn 201 02/22/17 [id number] TABS 03393687038 No Longer Active Chris Roberto MD Active GUAIFENESIN-CODEINE 100-10 MG/5ML ORAL SYRUP 2 tsp every 6 hours prn GUAIFENESIN-CODEINE 50797867301 No Longer Active Myrna Roberto MD Active NAPROXEN 500 MG ORAL TABLET one tab PO BID NAPR OXEN 45937332957 No Longer Active Myrna Roberto MD Active AUGMENTIN 875-125 MG ORAL TABLET 1 tab by mouth twice daily with food AMOXICILLIN-POT CLAVULANATE 09001628148 No Longer Act zaid Liliana Estrada MD PhD Active AMOXICILLIN 500 MG ORAL CAPSULE 1 tab by mouth 3 times daily 201 02/21/05 AMOXICILLIN 19732916432 No Longer Active Liliana Estrada MD PhD Active TESSALON PERLES 100 MG ORAL CAPSULE 1 tablet by mouth 3 times da cory BENZONATATE 22056541684 No Longer Active Liliana Estrada MD PhD Active FLAGYL 500 MG ORAL TABLET 1 tablet by mouth two times daily 2014 METRONIDAZOLE 25684603441 No Longer Active Nilam Raida Ac tive ZITHROMAX 250 MG ORAL TABLET 2 po today, then 1 po q days 2-5 20 06/08/16 AZITHROMYCIN 30093836553 No Longer Active Arie Casper MD Active VITAMINS 0.8 MG ORAL TABLET take 1 tab po qday [id number] 05937047757 No Longer Active Arie Casper MD Active IBUPROFEN 800 MG ORAL TABLET take one po Q 8 hours 201 02/01/16 IBUPROFEN 75252403568 No Longer Active Arie Casper MD Acti ve [facility] TUSSIN COUGH/COLD CF 5-10-100 MG/5ML ORAL LIQUID 2 teasp oons every 4 hours [id number] 79831411538 No Longer Active Blaine Casper MD Active COMTREX COLD/COUGH DAY/NITE MS 5-2-10-325 MG ORAL 2 caps deja ry 4 hours [id number] 92637470334 No Longer Active Landon Casper MD Active CHLORASEPTIC MAX SORE THROAT 15-10 MG MOUTH/THROAT LOZENGE 1 every 2 hours prn BENZOCAINE-MENTHOL 24134829723 No Longer Active Arie Casper MD Active PREDNISONE 20 MG ORAL TABLET 2 tabs daily for 3 days, 1 tab daily for 3 days, 1/2 tab daily for 2 days PREDNISONE 05131796953 No Longer Active Jose Zhong MD Active AZITHROMYCIN 250 MG ORAL TABLET 2 po qd x 1 day, then 1 po q d x 4 days AZITHROMYCIN 72055070030 No Longer Active Jose Mcwilliams MD Active ZOFRAN ODT 4 MG ORAL TABLET DISINTEGRATING 1 po q6hr PRN Nausea ONDANSETRON 81638078971 No Longer Active Rich Rosales MD Active ZOFRAN 4 MG ORAL TABLET 1 tablet every 4 hours ONDANSETRON HCL 98230872818 No Longer Active Rich Rosales MD Activ e MUCINEX 600 MG ORAL TABLET EXTENDED RELEASE 12 HOUR Ta ke 1-2 tablets every 12 hours GUAIFENESIN 62528521780 No Longer Active Rich Rosales MD Active BACTRIM 400-80 MG ORAL TABLET take one po BID SULFAMETHOXAZOLE-TRIMETHOPRIM 71456476600 No Longer Active Abelardo HERNANDEZ Active AZITHROMYCIN 500 MG ORAL TABLET 1 PO q day x 6 days 03/02/23 AZITHROMYCIN 77360120006 No Longer Active Tin HERNANDEZ Activ e ZITHROMAX 250 MG ORAL TABLET 2 po today, then 1 po q days 2-5 20 10/03/08 AZITHROMYCIN 45334353674 No Longer Active Arie Casper MD Active ZITHROMAX 250 MG ORAL TABLET 2 po today, then 1 po q days 2-5 20 09/23/25 AZITHROMYCIN 59707581525 No Longer Active Arie Casper MD Active AMOXICILLIN 500 MG ORAL CAPSULE 1 tab by mouth 3 times daily 201 11/24/09 AMOXICILLIN 25707661670 No Longer Active Arie Casper MD Active BACTRIM DS 800-160 MG ORAL TABLET 1 tab by mouth twice daily 201 11/03/14 TRIMETHOPRIM-SULFAMETHOXAZOLE 34656692611 No Longer Active Fozia Casper MD Active AMOXICILLIN 500 MG ORAL TABLET take 1 tab po TID 08/05 AMOXICILLIN 19049573763 No Longer Active Arie Casper MD Acti ve BACTRIM DS 800-160 MG ORAL TABLET 1 tab by mouth twice daily 201 11/03/14 BACTRIM DS 800-160 MG ORAL TABLET 178230 TRIMETHOPRIM-SULFAMETHOXAZOLE Inactive MUCINEX 600 MG ORAL TABLET EXTENDED RELEASE 12 HOUR Ta ke 1-2 tablets every 12 hours MUCINEX 600 MG ORAL TABLET EXTENDED RELEA SE 12 HOUR GUAIFENESIN Inactive ZOFRAN 4 MG ORAL TABLET 1 tablet every 4 hours ZOFRAN 4 MG ORAL TABLET 866500 ONDANSETRON HCL Inactive ZOFRAN ODT 4 MG ORAL TABLET DISINTEGRATING 1 po q6hr PRN Nausea ZOFRAN ODT 4 MG ORAL TABLET DISINTEGRATING 214035 ONDAN SETRON Inactive CHLORASEPTIC MAX SORE THROAT 15-10 MG MOUTH/THROAT LOZENGE 1 every 2 hours prn CHLORASEPTIC MAX SORE THROAT 15-10 MG MOUTH/THROAT LOZENGE BENZOCAINE-MENTHOL Inactive COMTREX COLD/COUGH DAY/NITE MS 5-2-10-325 MG ORAL 2 caps deja ry 4 hours COMTREX COLD/COUGH DAY/NITE MS 5-2-10-325 MG ORA L [id number] Inactive [facility] TUSSIN COUGH/COLD CF 5-10-100 MG/5ML ORAL LIQUID 2 teasp oons every 4 hours [facility] TUSSIN COUGH/COLD CF 5-10-100 MG/5ML ORAL LI QUID [id number] Inactive IBUPROFEN 800 MG ORAL TABLET take one po Q 8 hours 201 02/01/16 IBUPROFEN 800 MG ORAL TABLET 226691 IBUPROFEN Inactive VITAMINS 0.8 MG ORAL TABLET take 1 tab po qday VITAMINS 0.8 MG ORAL TABLET [id number] E-FA Inactive TESSALON PERLES 100 MG ORAL CAPSULE 1 tablet by mouth 3 times da cory TESSALON PERLES 100 MG ORAL CAPSULE 487743 BENZONATATE Inactive AMOXICILLIN 500 MG ORAL CAPSULE 1 tab by mouth 3 times daily 201 02/21/05 AMOXICILLIN 500 MG ORAL CAPSULE 992026 AMOXICILLIN Inactive GUAIFENESIN-CODEINE 100-10 MG/5ML ORAL SYRUP 2 tsp every 6 hours prn GUAIFENESIN-CODEINE 100-10 MG/5ML ORAL SYRUP 922049 GUAIFENESIN-CODEINE Inactive VICKS DAYQUIL SEVERE COLD/FLU TABLET 1 tab every 6 hours prn 201 02/22/17 VICKS DAYQUIL SEVERE COLD/FLU TABLET PHENYLEPHRI GL-AZ-OS-APAP TABS Inactive BACTRIM DS 800-160 MG ORAL TABLET 1 twice a day 05/30 BACTRIM DS 800-160 MG ORAL TABLET 973345 SULFAMETHOXAZOLE-TRIMETHOPRIM Inactiv e PROMETHAZINE HCL 25 MG ORAL TABLET 1 four times a day as nee ded for vomiting PROMETHAZINE HCL 25 MG ORAL TABLET 124450 PROMETHAZINE HCL Inactive ZYRTEC ALLERGY 10 MG ORAL CAPSULE 1 po qd ZYRTEC ALLERGY 10 MG ORAL CAPSULE CETIRIZINE HCL Inactive MACROBID 100 MG ORAL CAPSULE 1 cap by mouth twice daily MACROBID 100 MG ORAL CAPSULE 8094266 NITROFURANTOIN MONOHYD MACRO In active LOMOTIL 2.5-0.025 MG ORAL TABLET 1 to 2 four times a day as needed for diarrhea LOMOTIL 2.5-0.025 MG ORAL TABLET 7425752 DIPHENOXYLATE-ATROPINE Inactive CYCLOBENZAPRINE HCL 10 MG ORAL TABLET 1/2 - 1 tablet b y mouth three times daily as needed for muscle spasm/pain CYCLOBEN ZAPRINE HCL 10 MG ORAL TABLET 016563 CYCLOBENZAPRINE HCL Inactive AMOXICILLIN 500 MG ORAL TABLET 2 tabs twice a day for 10 days 07/09/11 AMOXICILLIN 500 MG ORAL TABLET 754767 AMOXICILLIN I nactive LOMOTIL 2.5-0.025 MG ORAL TABLET 1 to 2 four times a day as needed for diarrhea LOMOTIL 2.5-0.025 MG ORAL TABLET 0712510 DIPHENOXYLATE-ATROPINE Inactive ZOFRAN 4 MG ORAL TABLET 1 TAB PO Q 6 HRS PRN NAUSEA 07/10/15 ZOFRAN 4 MG ORAL TABLET 945975 ONDANSETRON HCL Inactive CITRATE OF MAGNESIA ORAL SOLUTION 1 bottle today for constipatio n CITRATE OF MAGNESIA ORAL SOLUTION 3588104 MAGNESIUM CITR ATE Inactive PROMETHAZINE HCL 12.5 MG ORAL TABLET 1 tablet by mouth every 6 hours as needed for nausea/vomiting PROMETHAZINE HCL 12.5 MG ORA L TABLET 101411 PROMETHAZINE HCL Inactive PREDNISONE 20 MG ORAL TABLET 1 tablet twice daily for 2 days, then 1 tablet once daily for 2 days PREDNISONE 20 MG ORAL TABLET 706974 PREDNISONE Inactive ALPRAZOLAM 0.25 MG ORAL TABLET 1 tablet by mouth every 8 hours as needed for stress ALPRAZOLAM 0.25 MG ORAL TABLET 399351 ALPRA ZOLAM Inactive FLONASE 50 MCG/ACT NASAL SUSPENSION 1 spray each nostr il twice daily for allergies and runny nose until gone FLON ASE 50 MCG/ACT NASAL SUSPENSION 8021562 FLUTICASONE PROPIONATE Inactive PREDNISONE 20 MG ORAL TABLET 1 tablet daily for airway inflammat ion PREDNISONE 20 MG ORAL TABLET 187967 PREDNISONE Arlen ctive NAPROXEN 500 MG ORAL TABLET Take 1 tab BID NAPROXEN 500 MG ORAL TABLET 751013 NAPROXEN Inactive ZOLOFT 50 MG ORAL TABLET 1 tablet by mouth daily 12/08 ZOLOFT 50 MG ORAL TABLET 191577 SERTRALINE HCL Inactive LOMOTIL 2.5-0.025 MG ORAL TABLET 1 tab po four times a day as needed for diarrhea LOMOTIL 2.5-0.025 MG ORAL TABLET 1245521 DIPHENOXYLATE-ATROPINE Inactive CETIRIZINE HCL 10 MG ORAL TABLET 1 po qd PRN Allergies CETIRIZINE HCL 10 MG ORAL TABLET 6103556 CETIRIZINE HCL Inactiv e TUSSIONEX PENNKINETIC ER 10-8 MG/5ML ORAL SUSPENSION E XTENDED RELEASE 5ml po q12hr PRN Cough TUSSIONEX PENNKINETI C ER 10-8 MG/5ML ORAL SUSPENSION EXTENDED RELEASE HYDROCOD POLST-CHLORPHEN POLST I nactive NEXPLANON IMPLANT right arm subcutaneously NEXPLANON IMPLANT ETONOGESTREL IMPL Inactive PROTONIX 40 MG ORAL TABLET DELAYED RELEASE 1 po q a.m. PROTONIX 40 MG ORAL TABLET DELAYED RELEASE 082594 PANTOPRAZOLE SODI UM Inactive CHERATUSSIN AC 100-10 MG/5ML ORAL SYRUP 1 tsp by mouth every 4 hours as needed for cough CHERATUSSIN AC 100-10 MG/5ML ORAL SYRUP 9 02996 GUAIFENESIN-CODEINE Inactive GUAIFENESIN DM 400-20 MG ORAL TABLET 1 pill by mouth t wice daily, if needed for cough GUAIFENESIN DM 400-20 MG ORAL TABLET 1143 988 DEXTROMETHORPHAN-GUAIFENESIN Inactive TUSSIONEX PENNKINETIC ER 10-8 MG/5ML ORAL SUSPENSION E XTENDED RELEASE 5ml po q12hr PRN Cough TUSSIONEX PENNKINETI C ER 10-8 MG/5ML ORAL SUSPENSION EXTENDED RELEASE HYDROCOD POLST-CHLORPHEN POLST I nactive AMOXICILLIN 500 MG ORAL TABLET take 1 tab po TID 08/05 AMOXICILLIN 500 MG ORAL TABLET 662206 AMOXICILLIN Inactive AMOXICILLIN 500 MG ORAL CAPSULE 1 tab by mouth 3 times daily 201 11/24/09 AMOXICILLIN 500 MG ORAL CAPSULE 810524 AMOXICILLIN Inactive ZITHROMAX 250 MG ORAL TABLET 2 po today, then 1 po q days 2-5 20 09/23/25 ZITHROMAX 250 MG ORAL TABLET 725744 AZITHROMYCIN Arlen ctive ZITHROMAX 250 MG ORAL TABLET 2 po today, then 1 po q days 2-5 20 10/03/08 ZITHROMAX 250 MG ORAL TABLET 198443 AZITHROMYCIN Arlen ctive AZITHROMYCIN 500 MG ORAL TABLET 1 PO q day x 6 days 03/02/23 AZITHROMYCIN 500 MG ORAL TABLET 1542303 AZITHROMYCIN Inactive BACTRIM 400-80 MG ORAL TABLET take one po BID BACTRIM 400- 80 MG ORAL TABLET 829424 SULFAMETHOXAZOLE-TRIMETHOPRIM Inactive AZITHROMYCIN 250 MG ORAL TABLET 2 po qd x 1 day, then 1 po q d x 4 days AZITHROMYCIN 250 MG ORAL TABLET 992813 AZITHROMY ALLISON Inactive PREDNISONE 20 MG ORAL TABLET 2 tabs daily for 3 days, 1 tab daily for 3 days, 1/2 tab daily for 2 days PREDNISONE 20 MG ORAL T ABLET 897345 PREDNISONE Inactive ZITHROMAX 250 MG ORAL TABLET 2 po today, then 1 po q days 2-5 20 06/08/16 ZITHROMAX 250 MG ORAL TABLET 926785 AZITHROMYCIN [place] ctive FLAGYL 500 MG ORAL TABLET 1 tablet by mouth two times daily 2014 FLAGYL 500 MG ORAL TABLET 363131 METRONIDAZOLE Inacti ve AUGMENTIN 875-125 MG ORAL TABLET 1 tab by mouth twice daily with food AUGMENTIN 875-125 MG ORAL TABLET 464295 AMOXICIL ELSA-POT CLAVULANATE Inactive NAPROXEN 500 MG ORAL TABLET one tab PO BID NAPROXEN 500 MG ORAL TABLET 751478 NAPROXEN Inactive PREDNISONE 20 MG ORAL TABLET 2 tabs daily for 3 days, 1 tab daily for 3 days, 1/2 tab daily for 2 days PREDNISONE 20 MG ORAL T ABLET 078373 PREDNISONE Inactive AZITHROMYCIN 250 MG ORAL TABLET 2 po qd x 1 day, then 1 po q d x 4 days AZITHROMYCIN 250 MG ORAL TABLET 942390 AZITHROMY ALLISON Inactive PREDNISONE 20 MG ORAL TABLET 2 tabs daily for 3 days, 1 tab daily for 3 days, 1/2 tab daily for 2 days PREDNISONE 20 MG ORAL T ABLET 743909 PREDNISONE Inactive ZITHROMAX Z-EMIL 250 MG ORAL TABLET 2 today, then 1 daily for 4 d ays ZITHROMAX Z-EMIL 250 MG ORAL TABLET 444360 AZITHROMYCIN Inactive CEFDINIR 300 MG ORAL CAPSULE 1 po BID x 10 days 12/18 CEFDINIR 300 MG ORAL CAPSULE 703138 CEFDINIR Inactive CEFDINIR 300 MG ORAL CAPSULE 1 po BID x 10 days CEFDINIR 300 MG ORAL CAPSULE 653899 CEFDINIR Inactive PREDNISONE 20 MG ORAL TABLET 2 tabs daily for 3 days, 1 tab daily for 3 days, 1/2 tab daily for 2 days PREDNISONE 20 MG ORAL T ABLET 884811 PREDNISONE Inactive BACTRIM DS 800-160 MG ORAL TABLET 1 tab by mouth twice daily 201 05/02/30 BACTRIM DS 800-160 MG ORAL TABLET 167254 TRIMETHOPRIM-SULFAMETHOXAZOLE Inactive ZITHROMAX Z-EMIL 250 MG ORAL TABLET 2 today, then 1 daily for 4 d ays ZITHROMAX Z-EMIL 250 MG ORAL TABLET 161026 AZITHROMYCIN Inactive TAMIFLU 75 MG ORAL CAPSULE 1 po BID x 5 days 0 TAMIFLU 75 MG ORAL CAPSULE 027926 OSELTAMIVIR PHOSPHATE Inactive CEFDINIR 300 MG ORAL CAPSULE 1 po BID x 10 days 01/03 CEFDINIR 300 MG ORAL CAPSULE 038506 CEFDINIR Inactive ZITHROMAX Z-EMIL 250 MG TABS Take two tablets today and then 1 tablet daily for 4 days ZITHROMAX Z-EMIL 250 MG TABS 863746 AZITHROM YCIN Inactive AMOXICILLIN 875 MG ORAL TABLET 1 tab by mouth twice daily AMOXICILLIN 875 MG ORAL TABLET 703362 AMOXICILLIN Inactive Advance Directives Directive Description Start [...] Negative Encounters Code Encounter Date Provider Facility [facility]-97688 [id number]-Hoz Vst-Est Level III 09:41:31 CDT Arie Casper MD [facility]-80630 52463-Fyx Vst-Est Level III 18:20:11 CDT [facility] 37277-Pna Vst-Est Level III 17:21:41 CDT [facility] 12833-Hus Vst-Est Level IV 13:30:22 C DT Arie Casper MD [facility]-07550 Level 4 Est. Patient 13:05:26 CDT Myrna maldonado MD [facility]-21084 77406-Gyk Vst-Est Level IV 20:50:21 C DT Arie Casper MD [facility]-42258 Level 3 Est. Patient 11:49:34 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 Jessica boyd [facility]-70543 Level 3 Est. Patient 14:55:50 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 Jose Zhong MD [facility]-44114 Level 3 Est. Patient 10:21:41 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 Arie mcqueen MD [facility]-31435 Level 3 Est. Patient 11:35:15 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 Arie mcqueen MD [facility]-87173 Level 3 Est. Patient 15:40:28 CDT Brii Are ll [facility] CPT-28313 Level 3 Est. Patient 16:40:36 CDT Arie mcqueen MD [facility]-31947 Level 4 Est. Patient 15:29:22 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 Arie mcqueen MD [facility] CPT-03233 Level 3 Est. Patient 15:18:16 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 Jono black [facility] CPT-58308 Level 4 Est. Patient 12:08:40 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 Brii Are ll [facility] CPT-04474 Level 3 Est. Patient 09:24:42 CDT Brii Are [facility] CPT-67434 Level 3 Est. Patient 09:12:56 CDT Arie mcqueen MD [facility] CPT-60546 Level 3 Est. Patient 16:40:54 CDT Jose Zhong MD [facility] CPT-21320 Level 2 Est. Patient 13:01:13 CDT Brii Are ll [facility] CPT-17044 Level 3 Est. Patient 11:55:30 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 Jono black [facility] CPT-48844 Level 3 Est. Patient 09:52:36 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 Brii Are ll [facility] CPT-41800 Level 3 Est. Patient 16:25:33 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 Rich Rosales MD [facility] CPT-76151 Level 3 Est. Patient 20:33:55 CDT Arie mcqueen MD [facility] CPT-15841 Level 3 Est. Patient 14:18:20 CDT Rich Rosales MD [facility] CPT-18289 Level 4 Est. Patient 09:34:31 CDT Arie mcqueen MD [facility]-15842 Level 3 Est. Patient 09:08:55 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 Liliana vincent MD PhD [facility] CPT-82993 Level 3 Est. Patient 16:44:07 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 Arie mcqueen MD [facility] CPT-35978 Level 3 Est. Patient 10:44:27 CDT Arie mcqueen MD [facility] CPT-70194 Level 3 Est. Patient 08:55:41 CDT Jose Zhong MD [facility] CPT-57868 Level 3 Est. Patient 18:37:31 CDT Liliana vincent MD PhD [facility] CPT-47696 Level 3 Est. Patient 14:28:23 CDT Abelardo HERNANDEZ [facility] CPT-11091 Level 3 Est. Patient 15:18:13 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 Arie mcqueen MD [facility] CPT-77137 Level 3 Est. Patient 10:11:29 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 Arie mcqueen MD [facility] CPT-12006 Level 3 Est. Patient 10:55:57 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 Jono black DO [facility] CPT-72112 Level 3 Est. Patient 17:29:05 CDT Arie mcqueen MD [facility] Procedures Code Procedure Name Date Entry Date Standard Desc ription CPT-20237 Ear Wash with irrigation 17:21:41 CDT 07/04 CPT-85643 Nexplanon Removal 15:40:28 CDT CPT-15862 Sono transvag pelvis non OB uterus ovari es cervix - XRAY USE ONLY 08:58:14 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 CPT-82982 UA w micro - LAB USE ONLY 16:04:56 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 2015 CPT-42065 Wet Prep/GEN - LAB USE ONLY 16:04:56 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 20 08/10/29 CPT-94197 First Vx - Ix admin via ID I M or jet injects without counseling by physician 16:57:10 CDT CPT-86177 Fluzone Preservative Free Intramuscular Suspension 16:57:10 CDT CPT-J0696 Rocephin 1000 mg (Ceftriaxone) 11:49:23 CDT CPT-J1040 Depo Medrol 80 mg (Methyl Prednisolone A cetate) 11:49:23 CDT CPT-J1100 Decadron 8mg (Dexamethasone) 11:49:23 CDT 2 CPT-39159 Abx/Therapy Injection 11:49:23 CDT CPT-99469 Abx/Therapy Injection 11:49:23 CDT CPT-54892 Abd compl w upright 09:07:26 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[facility] CPT-08151 Ear Wash 16:12:47 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[facility] CPT-OV Office Visit 11:12:01 CDT CPT-OV Office Visit 15:30:23 CDT CPT-68685 Sono pelvis non OB uterus ovaries cervix 15:50:44 CDT CPT-14654 Hand comp min 3V 16:42:32 CDT CPT-78458 Abd compl w upright 12:17:01 CDT CPT-46411 Nexplanon Placement 15:07:39 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[facility] CPT-24439 Removal of IUD 15:07:39 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 CPT-79276 TB Tubersol 12:09:32 CDT CPT-05256 [facility] Tubersol 13:55:43 CDT
--- OUTSIDE RECORDS SUMMARY | 2020-03-03 07:55 | XMS REPORT | Clinical Summary ---
Author Author Admin, Diamante Marcelo Organization [email or web address] Address Unknown Phone Unavailable Allergies, Adverse Reactions, [...] respiratory manifestations Sinusitis 473.9 Active Jessica Heaton [employer] Unspecified sinusitis (chronic) Other mixed anxiety [...] Cerumen impaction, bilateral 380.4 Active Brii Russ [employer] Impacted cerumen Tonsillar enlargement 474.11 Active Brii Rsus APRN Hypertrophy of tonsils alone Influenza Vaccination for Prophylaxis V04.81 Inactive Brii Russ [employer] Need for prophylactic vaccin ation and inoculation against influenza Submandibular lymph node 785.6 Active Brii Are ll [employer] CLE[employer] Enlargement of lymph nodes Influenza Vaccination for [...] MG ORAL CAPSULE 1 po tid CEPHALEXIN [id number] 81356 Active Brii Russ APRN Active PROTONIX 40 MG ORAL TABLET DELAYED RELEASE 1 pill by m outh daily, for acid reflux PANTOPRAZOLE SODIUM 46073493909 Active Roseann Crawford Active AMOXICILLIN 875 MG ORAL TABLET 1 tab by mouth twice daily 1 AMOXICILLIN 99704135065 No Longer Active Brii Russ APRN Active ALPRAZOLAM 0.25 MG ORAL TABLET 1 tablet by mouth twice a day as needed for stress/anxiety ALPRAZOLAM 66729616334 Active KELLIE Escobar Active ESCITALOPRAM OXALATE 10 MG ORAL TABLET take 1 tab po qhs for mod 20 10/04/18 ESCITALOPRAM OXALATE 30845598920 Active Arie Casper MD Active TUSSIONEX PENNKINETIC ER 10-8 MG/5ML ORAL SUSPENSION E XTENDED RELEASE 5ml po q12hr PRN Cough HYDROCOD POLST-CHLORPHEN POLST 5 6798920921 No Longer Active Myrna Roberto MD Active ZITHROMAX Z-EMIL 250 MG TABS Take two tablets today and then 1 tablet daily for 4 days AZITHROMYCIN 43933807642 No Longer Active Flaco Rosales MD Active GUAIFENESIN DM 400-20 MG ORAL TABLET 1 pill by mouth t wice daily, if needed for cough DEXTROMETHORPHAN-GUAIFENESIN 73458519810 No Longer Active Rich Rosales MD Active CEFDINIR 300 MG ORAL CAPSULE 1 po BID x 10 days CEFDINIR 45496503405 No Longer Active Jessica Heaton APRN Active CHERATUSSIN AC 100-10 MG/5ML ORAL SYRUP 1 tsp by mouth every 4 hours as needed for cough GUAIFENESIN-CODEINE 00337187779 No Longe r Active Jessica Heaton APRN Active TAMIFLU 75 MG ORAL CAPSULE 1 po BID x 5 days 0 OSELTAMIVIR PHOSPHATE 11971376965 No Longer Active Jose Zhong MD Activ e ZITHROMAX Z-EMIL 250 MG ORAL TABLET 2 today, then 1 daily for 4 d ays AZITHROMYCIN 75289708469 No Longer Active Arie Casper MD Active PROTONIX 40 MG ORAL TABLET DELAYED RELEASE 1 po q a.m. PANTOPRAZOLE SODIUM 97871135883 No Longer Active Arie Casper MD Active BACTRIM DS 800-160 MG ORAL TABLET 1 tab by mouth twice daily 201 05/02/30 TRIMETHOPRIM-SULFAMETHOXAZOLE 39559001537 No Longer Active R okalberto Crawford Active NEXPLANON IMPLANT right arm subcutaneously ETONOGESTREL IMPL 92734244221 No Longer Active Brii Areboris [employer]ER Active TUSSIONEX PENNKINETIC ER 10-8 MG/5ML ORAL SUSPENSION E XTENDED RELEASE 5ml po q12hr PRN Cough HYDROCOD POLST-CHLORPHEN POLST 5 9434289931 No Longer Active Brii Arell [employer] CLE[employer]ER Active CETIRIZINE HCL 10 MG ORAL TABLET 1 po qd PRN Allergies CETIRIZINE HCL 02739901723 No Longer Active Brii Arell [employer] Activ e PREDNISONE 20 MG ORAL TABLET 2 tabs daily for 3 days, 1 tab daily for 3 days, 1/2 tab daily for 2 days PREDNISONE 08233789819 No Longer Active Arie Casper MD Active LOMOTIL 2.5-0.025 MG ORAL TABLET 1 tab po four times a day as needed for diarrhea DIPHENOXYLATE-ATROPINE 36622345253 No Lo nger Active Arie Casper MD Active ZOLOFT 50 MG ORAL TABLET 1 tablet by mouth daily 12/08 SERTRALINE HCL 58120099584 No Longer Active Arie Casper MD Ac tive NAPROXEN 500 MG ORAL TABLET Take 1 tab BID NAPR OXEN 53812904943 No Longer Active Arie Casper MD Active CEFDINIR 300 MG ORAL CAPSULE 1 po BID x 10 days CEFDINIR 10044578683 No Longer Active Brii Russ APRN Active PREDNISONE 20 MG ORAL TABLET 1 tablet daily for airway inflammat ion PREDNISONE 05636774433 No Longer Active Brii Russ APRN A ctive CEFDINIR 300 MG ORAL CAPSULE 1 po BID x 10 days CEFDINIR 34497019560 No Longer Active Jono Gagnon DO Active FLONASE 50 MCG/ACT NASAL SUSPENSION 1 spray each nostr il twice daily for allergies and runny nose until gone FLUT ICASONE PROPIONATE 59187488171 No Longer Active Jono Gagnon DO Active ALPRAZOLAM 0.25 MG ORAL TABLET 1 tablet by mouth every 8 hours as needed for stress ALPRAZOLAM 09435651023 No Longer Active Jono Gagnon DO Active ZITHROMAX Z-EMIL 250 MG ORAL TABLET 2 today, then 1 daily for 4 d ays AZITHROMYCIN 49194875076 No Longer Active Arie Casper MD Active PREDNISONE 20 MG ORAL TABLET 2 tabs daily for 3 days, 1 tab daily for 3 days, 1/2 tab daily for 2 days PREDNISONE 75182146951 No Longer Active Brii Russ APRN Active PREDNISONE 20 MG ORAL TABLET 1 tablet twice daily for 2 days, then 1 tablet once daily for 2 days PREDNISONE 32887770710 No Longer Active Brii Russ APRN Active PROMETHAZINE HCL 12.5 MG ORAL TABLET 1 tablet by mouth every 6 hours as needed for nausea/vomiting PROMETHAZINE HCL 24020327695 No L onger Active Jono Gagnon DO Active CITRATE OF MAGNESIA ORAL SOLUTION 1 bottle today for constipatio n MAGNESIUM CITRATE 51848357231 No Longer Active Jono Gagnon DO Active ZOFRAN 4 MG ORAL TABLET 1 TAB PO Q 6 HRS PRN NAUSEA 07/10/15 ONDANSETRON HCL 32086584685 No Longer Active Brii Russ APRN Acti ve LOMOTIL 2.5-0.025 MG ORAL TABLET 1 to 2 four times a day as needed for diarrhea DIPHENOXYLATE-ATROPINE 12317997183 No Longer Active January Russ APRN Active AMOXICILLIN 500 MG ORAL TABLET 2 tabs twice a day for 10 days 07/09/11 AMOXICILLIN 31219997833 No Longer Active Brii Russ APRN Active CYCLOBENZAPRINE HCL 10 MG ORAL TABLET 1/2 - 1 tablet b y mouth three times daily as needed for muscle spasm/pain CYCLOBENZAPRINE HCL 45810813712 No Longer Active Arie Casper MD Active LOMOTIL 2.5-0.025 MG ORAL TABLET 1 to 2 four times a day as needed for diarrhea DIPHENOXYLATE-ATROPINE 12877623255 No Longer Active Fozia Casper MD Active MACROBID 100 MG ORAL CAPSULE 1 cap by mouth twice daily NITROFURANTOIN MONOHYD MACRO 06966449781 No Longer Active Arie Casper MD Active ZYRTEC ALLERGY 10 MG ORAL CAPSULE 1 po qd CE TIRIZINE HCL 04610664928 No Longer Active Arie Casper MD Active AZITHROMYCIN 250 MG ORAL TABLET 2 po qd x 1 day, then 1 po q d x 4 days AZITHROMYCIN 18691395145 No Longer Active Jessica salgado APRN Active PREDNISONE 20 MG ORAL TABLET 2 tabs daily for 3 days, 1 tab daily for 3 days, 1/2 tab daily for 2 days PREDNISONE 02089883382 No Longer Active Jessica Heaton APRN Active PROMETHAZINE HCL 25 MG ORAL TABLET 1 four times a day as nee ded for vomiting PROMETHAZINE HCL 94518754753 No Longer Active Myrna Roberto MD Active BACTRIM DS 800-160 MG ORAL TABLET 1 twice a day 05/30 SULFAMETHOXAZOLE-TRIMETHOPRIM 90872681201 No Longer Active Myrna Roberto MD Active VICKS DAYQUIL SEVERE COLD/FLU TABLET 1 tab every 6 hours prn 201 02/22/17 [id number] TABS 87553108528 No Longer Active K fany Roberto MD Active GUAIFENESIN-CODEINE 100-10 MG/5ML ORAL SYRUP 2 tsp every 6 hours prn GUAIFENESIN-CODEINE 23325142261 No Longer Active Myrna Roberto MD Active NAPROXEN 500 MG ORAL TABLET one tab PO BID NAPR OXEN 43293211975 No Longer Active Myrna Roberto MD Active AUGMENTIN 875-125 MG ORAL TABLET 1 tab by mouth twice daily with food AMOXICILLIN-POT CLAVULANATE 78283101547 No Longer Act zaid Liliana Estrada MD PhD Active AMOXICILLIN 500 MG ORAL CAPSULE 1 tab by mouth 3 times daily 201 02/21/05 AMOXICILLIN 20681257588 No Longer Active Liliana Estrada MD PhD Active TESSALON PERLES 100 MG ORAL CAPSULE 1 tablet by mouth 3 times da cory BENZONATATE 08064004269 No Longer Active Liliana Estrada MD PhD Active FLAGYL 500 MG ORAL TABLET 1 tablet by mouth two times daily 2014 METRONIDAZOLE 00926926314 No Longer Active Nilam Raida Ac tive ZITHROMAX 250 MG ORAL TABLET 2 po today, then 1 po q days 2-5 20 06/08/16 AZITHROMYCIN 81863715124 No Longer Active Arie Casper MD Active VITAMINS 0.8 MG ORAL TABLET take 1 tab po qday [id number] 23385362810 No Longer Active Arie Casper MD Active IBUPROFEN 800 MG ORAL TABLET take one po Q 8 hours 201 02/01/16 IBUPROFEN 23218621891 No Longer Active Arie Casper MD Acti ve [facility] TUSSIN COUGH/COLD CF 5-10-100 MG/5ML ORAL LIQUID 2 teasp oons every 4 hours [id number] 00522107430 No Longer Active Blaine Casper MD Active COMTREX COLD/COUGH DAY/NITE MS 5-2-10-325 MG ORAL 2 caps deja ry 4 hours [id number] 11808626848 No Longer Active Landon Casper MD Active CHLORASEPTIC MAX SORE THROAT 15-10 MG MOUTH/THROAT LOZENGE 1 every 2 hours prn BENZOCAINE-MENTHOL 68113571273 No Longer Active Arie Casper MD Active PREDNISONE 20 MG ORAL TABLET 2 tabs daily for 3 days, 1 tab daily for 3 days, 1/2 tab daily for 2 days PREDNISONE 11976720038 No Longer Active Jose Zhong MD Active AZITHROMYCIN 250 MG ORAL TABLET 2 po qd x 1 day, then 1 po q d x 4 days AZITHROMYCIN 85037039677 No Longer Active Jose Mcwilliams MD Active ZOFRAN ODT 4 MG ORAL TABLET DISINTEGRATING 1 po q6hr PRN Nausea ONDANSETRON 64504208831 No Longer Active Rich Rosales MD Active ZOFRAN 4 MG ORAL TABLET 1 tablet every 4 hours ONDANSETRON HCL 03656099303 No Longer Active Rich Rosales MD Activ e MUCINEX 600 MG ORAL TABLET EXTENDED RELEASE 12 HOUR Ta ke 1-2 tablets every 12 hours GUAIFENESIN 88680275382 No Longer Active Rich Rosales MD Active BACTRIM 400-80 MG ORAL TABLET take one po BID SULFAMETHOXAZOLE-TRIMETHOPRIM 87581128929 No Longer Active Abelardo HERNANDEZ Active AZITHROMYCIN 500 MG ORAL TABLET 1 PO q day x 6 days 03/02/23 AZITHROMYCIN 15720034221 No Longer Active Tin HERNANDEZ Activ e ZITHROMAX 250 MG ORAL TABLET 2 po today, then 1 po q days 2-5 20 10/03/08 AZITHROMYCIN 21954411827 No Longer Active Arie Casper MD Active ZITHROMAX 250 MG ORAL TABLET 2 po today, then 1 po q days 2-5 20 09/23/25 AZITHROMYCIN 42617867974 No Longer Active Arie Casper MD Active AMOXICILLIN 500 MG ORAL CAPSULE 1 tab by mouth 3 times daily 201 11/24/09 AMOXICILLIN 12828814014 No Longer Active Arie Casper MD Active BACTRIM DS 800-160 MG ORAL TABLET 1 tab by mouth twice daily 201 11/03/14 TRIMETHOPRIM-SULFAMETHOXAZOLE 41587745139 No Longer Active Fozia Casper MD Active AMOXICILLIN 500 MG ORAL TABLET take 1 tab po TID 08/05 AMOXICILLIN 97129348846 No Longer Active Arie Casper MD Acti ve BACTRIM DS 800-160 MG ORAL TABLET 1 tab by mouth twice daily 201 11/03/14 BACTRIM DS 800-160 MG ORAL TABLET 861448 TRIMETHOPRIM-SULFAMETHOXAZOLE Inactive MUCINEX 600 MG ORAL TABLET EXTENDED RELEASE 12 HOUR Ta ke 1-2 tablets every 12 hours MUCINEX 600 MG ORAL TABLET EXTENDED RELEA SE 12 HOUR GUAIFENESIN Inactive ZOFRAN 4 MG ORAL TABLET 1 tablet every 4 hours ZOFRAN 4 MG ORAL TABLET 567146 ONDANSETRON HCL Inactive ZOFRAN ODT 4 MG ORAL TABLET DISINTEGRATING 1 po q6hr PRN Nausea ZOFRAN ODT 4 MG ORAL TABLET DISINTEGRATING 048733 ONDAN SETRON Inactive CHLORASEPTIC MAX SORE THROAT 15-10 MG MOUTH/THROAT LOZENGE 1 every 2 hours prn CHLORASEPTIC MAX SORE THROAT 15-10 MG MOUTH/THROAT LOZENGE BENZOCAINE-MENTHOL Inactive COMTREX COLD/COUGH DAY/NITE MS 5-2-10-325 MG ORAL 2 caps deja ry 4 hours COMTREX COLD/COUGH DAY/NITE MS 5-2-10-325 MG ORA L [id number] Inactive [facility] TUSSIN COUGH/COLD CF 5-10-100 MG/5ML ORAL LIQUID 2 teasp oons every 4 hours [facility] TUSSIN COUGH/COLD CF 5-10-100 MG/5ML ORAL LI QUID [id number] Inactive IBUPROFEN 800 MG ORAL TABLET take one po Q 8 hours 201 02/01/16 IBUPROFEN 800 MG ORAL TABLET 389858 IBUPROFEN Inactive VITAMINS 0.8 MG ORAL TABLET take 1 tab po qday VITAMINS 0.8 MG ORAL TABLET [id number]-FA Inactive TESSALON PERLES 100 MG ORAL CAPSULE 1 tablet by mouth 3 times da cory TESSALON PERLES 100 MG ORAL CAPSULE 730997 BENZONATATE Inactive AMOXICILLIN 500 MG ORAL CAPSULE 1 tab by mouth 3 times daily 201 02/21/05 AMOXICILLIN 500 MG ORAL CAPSULE 398453 AMOXICILLIN Inactive GUAIFENESIN-CODEINE 100-10 MG/5ML ORAL SYRUP 2 tsp every 6 hours prn GUAIFENESIN-CODEINE 100-10 MG/5ML ORAL SYRUP 431432 GUAIFENESIN-CODEINE Inactive VICKS DAYQUIL SEVERE COLD/FLU TABLET 1 tab every 6 hours prn 201 02/22/17 VICKS DAYQUIL SEVERE COLD/FLU TABLET PHENYLEPHRI [id number] TABS Inactive BACTRIM DS 800-160 MG ORAL TABLET 1 twice a day 05/30 BACTRIM DS 800-160 MG ORAL TABLET 888733 SULFAMETHOXAZOLE-TRIMETHOPRIM Inactiv e PROMETHAZINE HCL 25 MG ORAL TABLET 1 four times a day as nee ded for vomiting PROMETHAZINE HCL 25 MG ORAL TABLET 350953 PROMETHAZINE HCL Inactive ZYRTEC ALLERGY 10 MG ORAL CAPSULE 1 po qd ZYRTEC ALLERGY 10 MG ORAL CAPSULE CETIRIZINE HCL Inactive MACROBID 100 MG ORAL CAPSULE 1 cap by mouth twice daily MACROBID 100 MG ORAL CAPSULE 0275722 NITROFURANTOIN MONOHYD MACRO In active LOMOTIL 2.5-0.025 MG ORAL TABLET 1 to 2 four times a day as needed for diarrhea LOMOTIL 2.5-0.025 MG ORAL TABLET 4991900 DIPHENOXYLATE-ATROPINE Inactive CYCLOBENZAPRINE HCL 10 MG ORAL TABLET 1/2 - 1 tablet b y mouth three times daily as needed for muscle spasm/pain CYCLOBEN ZAPRINE HCL 10 MG ORAL TABLET 856227 CYCLOBENZAPRINE HCL Inactive AMOXICILLIN 500 MG ORAL TABLET 2 tabs twice a day for 10 days 07/09/11 AMOXICILLIN 500 MG ORAL TABLET 124365 AMOXICILLIN I nactive LOMOTIL 2.5-0.025 MG ORAL TABLET 1 to 2 four times a day as needed for diarrhea LOMOTIL 2.5-0.025 MG ORAL TABLET 8580702 DIPHENOXYLATE-ATROPINE Inactive ZOFRAN 4 MG ORAL TABLET 1 TAB PO Q 6 HRS PRN NAUSEA 07/10/15 ZOFRAN 4 MG ORAL TABLET 746588 ONDANSETRON HCL Inactive CITRATE OF MAGNESIA ORAL SOLUTION 1 bottle today for constipatio n CITRATE OF MAGNESIA ORAL SOLUTION 8548046 MAGNESIUM CITR ATE Inactive PROMETHAZINE HCL 12.5 MG ORAL TABLET 1 tablet by mouth every 6 hours as needed for nausea/vomiting PROMETHAZINE HCL 12.5 MG ORA L TABLET 823102 PROMETHAZINE HCL Inactive PREDNISONE 20 MG ORAL TABLET 1 tablet twice daily for 2 days, then 1 tablet once daily for 2 days PREDNISONE 20 MG ORAL TABLET 328308 PREDNISONE Inactive ALPRAZOLAM 0.25 MG ORAL TABLET 1 tablet by mouth every 8 hours as needed for stress ALPRAZOLAM 0.25 MG ORAL TABLET 992158 ALPRA ZOLAM Inactive FLONASE 50 MCG/ACT NASAL SUSPENSION 1 spray each nostr il twice daily for allergies and runny nose until gone FLON ASE 50 MCG/ACT NASAL SUSPENSION 4478482 FLUTICASONE PROPIONATE Inactive PREDNISONE 20 MG ORAL TABLET 1 tablet daily for airway inflammat ion PREDNISONE 20 MG ORAL TABLET 920334 PREDNISONE [place] ctive NAPROXEN 500 MG ORAL TABLET Take 1 tab BID NAPROXEN 500 MG ORAL TABLET 224595 NAPROXEN Inactive ZOLOFT 50 MG ORAL TABLET 1 tablet by mouth daily 12/08 ZOLOFT 50 MG ORAL TABLET 794642 SERTRALINE HCL Inactive LOMOTIL 2.5-0.025 MG ORAL TABLET 1 tab po four times a day as needed for diarrhea LOMOTIL 2.5-0.025 MG ORAL TABLET 9058369 DIPHENOXYLATE-ATROPINE Inactive CETIRIZINE HCL 10 MG ORAL TABLET 1 po qd PRN Allergies CETIRIZINE HCL 10 MG ORAL TABLET 2578249 CETIRIZINE HCL Inactiv e TUSSIONEX PENNKINETIC ER 10-8 MG/5ML ORAL SUSPENSION E XTENDED RELEASE 5ml po q12hr PRN Cough TUSSIONEX PENNKINETI C ER 10-8 MG/5ML ORAL SUSPENSION EXTENDED RELEASE HYDROCOD POLST-CHLORPHEN POLST I nactive NEXPLANON IMPLANT right arm subcutaneously NEXPLANON IMPLANT ETONOGESTREL IMPL Inactive PROTONIX 40 MG ORAL TABLET DELAYED RELEASE 1 po q a.m. PROTONIX 40 MG ORAL TABLET DELAYED RELEASE 579137 PANTOPRAZOLE SODI UM Inactive CHERATUSSIN AC 100-10 MG/5ML ORAL SYRUP 1 tsp by mouth every 4 hours as needed for cough CHERATUSSIN AC 100-10 MG/5ML ORAL SYRUP 9 01060 GUAIFENESIN-CODEINE Inactive GUAIFENESIN DM 400-20 MG ORAL TABLET 1 pill by mouth t wice daily, if needed for cough GUAIFENESIN DM 400-20 MG ORAL TABLET 1149 105 DEXTROMETHORPHAN-GUAIFENESIN Inactive TUSSIONEX PENNKINETIC ER 10-8 MG/5ML ORAL SUSPENSION E XTENDED RELEASE 5ml po q12hr PRN Cough TUSSIONEX PENNKINETI C ER 10-8 MG/5ML ORAL SUSPENSION EXTENDED RELEASE HYDROCOD POLST-CHLORPHEN POLST I nactive AMOXICILLIN 500 MG ORAL TABLET take 1 tab po TID 08/05 AMOXICILLIN 500 MG ORAL TABLET 817806 AMOXICILLIN Inactive AMOXICILLIN 500 MG ORAL CAPSULE 1 tab by mouth 3 times daily 201 11/24/09 AMOXICILLIN 500 MG ORAL CAPSULE 598258 AMOXICILLIN Inactive ZITHROMAX 250 MG ORAL TABLET 2 po today, then 1 po q days 2-5 20 09/23/25 ZITHROMAX 250 MG ORAL TABLET 280856 AZITHROMYCIN [place] ctive ZITHROMAX 250 MG ORAL TABLET 2 po today, then 1 po q days 2-5 20 10/03/08 ZITHROMAX 250 MG ORAL TABLET 743345 AZITHROMYCIN [place] ctive AZITHROMYCIN 500 MG ORAL TABLET 1 PO q day x 6 days 20 03/02/23 AZITHROMYCIN 500 MG ORAL TABLET 4514723 AZITHROMYCIN Inactive BACTRIM 400-80 MG ORAL TABLET take one po BID BACTRIM 400- 80 MG ORAL TABLET 225575 SULFAMETHOXAZOLE-TRIMETHOPRIM Inactive AZITHROMYCIN 250 MG ORAL TABLET 2 po qd x 1 day, then 1 po q d x 4 days AZITHROMYCIN 250 MG ORAL TABLET 373758 AZITHROMY ALLISON Inactive PREDNISONE 20 MG ORAL TABLET 2 tabs daily for 3 days, 1 tab daily for 3 days, 1/2 tab daily for 2 days PREDNISONE 20 MG ORAL T ABLET 078427 PREDNISONE Inactive ZITHROMAX 250 MG ORAL TABLET 2 po today, then 1 po q days 2-5 20 06/08/16 ZITHROMAX 250 MG ORAL TABLET 748243 AZITHROMYCIN [place] ctive FLAGYL 500 MG ORAL TABLET 1 tablet by mouth two times daily 2014 FLAGYL 500 MG ORAL TABLET 038819 METRONIDAZOLE Inacti ve AUGMENTIN 875-125 MG ORAL TABLET 1 tab by mouth twice daily with food AUGMENTIN 875-125 MG ORAL TABLET 278451 AMOXICIL ELSA-POT CLAVULANATE Inactive NAPROXEN 500 MG ORAL TABLET one tab PO BID NAPROXEN 500 MG ORAL TABLET 231701 NAPROXEN Inactive PREDNISONE 20 MG ORAL TABLET 2 tabs daily for 3 days, 1 tab daily for 3 days, 1/2 tab daily for 2 days PREDNISONE 20 MG ORAL T ABLET 306216 PREDNISONE Inactive AZITHROMYCIN 250 MG ORAL TABLET 2 po qd x 1 day, then 1 po q d x 4 days AZITHROMYCIN 250 MG ORAL TABLET 162652 AZITHROMY ALLISON Inactive PREDNISONE 20 MG ORAL TABLET 2 tabs daily for 3 days, 1 tab daily for 3 days, 1/2 tab daily for 2 days PREDNISONE 20 MG ORAL T ABLET 449868 PREDNISONE Inactive ZITHROMAX Z-EMIL 250 MG ORAL TABLET 2 today, then 1 daily for 4 d ays ZITHROMAX Z-EMIL 250 MG ORAL TABLET 865104 AZITHROMYCIN Inactive CEFDINIR 300 MG ORAL CAPSULE 1 po BID x 10 days 12/18 CEFDINIR 300 MG ORAL CAPSULE 410494 CEFDINIR Inactive CEFDINIR 300 MG ORAL CAPSULE 1 po BID x 10 days CEFDINIR 300 MG ORAL CAPSULE 046466 CEFDINIR Inactive PREDNISONE 20 MG ORAL TABLET 2 tabs daily for 3 days, 1 tab daily for 3 days, 1/2 tab daily for 2 days PREDNISONE 20 MG ORAL T ABLET 628717 PREDNISONE Inactive BACTRIM DS 800-160 MG ORAL TABLET 1 tab by mouth twice daily 201 05/02/30 BACTRIM DS 800-160 MG ORAL TABLET 146588 TRIMETHOPRIM-SULFAMETHOXAZOLE Inactive ZITHROMAX Z-EMIL 250 MG ORAL TABLET 2 today, then 1 daily for 4 d ays ZITHROMAX Z-EMIL 250 MG ORAL TABLET 263946 AZITHROMYCIN Inactive TAMIFLU 75 MG ORAL CAPSULE 1 po BID x 5 days 0 TAMIFLU 75 MG ORAL CAPSULE 259202 OSELTAMIVIR PHOSPHATE Inactive CEFDINIR 300 MG ORAL CAPSULE 1 po BID x 10 days 01/03 CEFDINIR 300 MG ORAL CAPSULE 764298 CEFDINIR Inactive ZITHROMAX Z-EMIL 250 MG TABS Take two tablets today and then 1 tablet daily for 4 days ZITHROMAX Z-EMIL 250 MG TABS 390638 AZITHROM YCIN Inactive AMOXICILLIN 875 MG ORAL TABLET 1 tab by mouth twice daily AMOXICILLIN 875 MG ORAL TABLET 990399 AMOXICILLIN Inactive Advance Directives Directive Description Start [...] 11 .6-14.8 platelet count 263 10^3/MM^3 10*3/mm3 133-477 7106/11/09 leukocyte count, blood 7.8 10^3/MM^3 10*3/mm3 4.6-10.2 [...] Negative Encounters Code Encounter Date Provider Facility [facility]-[id number] Vst-Est Level III 09:41:31 CDT Arie Casper MD [facility]-94572 [id number] Vst-Est Level III 18:20:11 CDT Me lobito Russ [facility]-00971 26727-Cmu Vst-Est Level III 17:21:41 CDT Ri lobito Russ [facility]-67917 12617-Sis Vst-Est Level IV 13:30:22 C DT Arie Casper MD [facility]-23719 Level 4 Est. Patient 13:05:26 CDT Myrna maldonado MD [facility]-35912 53126-Jjt Vst-Est Level IV 20:50:21 C DT Arie Casper MD [facility]-39947 Level 3 Est. Patient 11:49:34 RN ORTHOPAEDIC Jessica boyd [facility]-87959 Level 3 Est. Patient 14:55:50 RN ORTHOPAEDIC Jose Zhong MD [facility]-55749 Level 3 Est. Patient 10:21:41 RN ORTHOPAEDIC Arie mcqueen MD [facility]-28049 Level 3 Est. Patient 11:35:15 RN ORTHOPAEDIC Arie mcqueen MD [facility]-62988 Level 3 Est. Patient 15:40:28 CDT Brii Are ll [facility] CPT-02041 Level 3 Est. Patient 16:40:36 CDT Arie mcqueen MD [facility] CPT-77969 Level 4 Est. Patient 15:29:22 RN ORTHOPAEDIC Arie mcqueen MD [facility] CPT-36070 Level 3 Est. Patient 15:18:16 RN ORTHOPAEDIC Jono black [facility] CPT-32390 Level 4 Est. Patient 12:08:40 RN ORTHOPAEDIC Brii Are ll [facility] CPT-94179 Level 3 Est. Patient 09:24:42 CDT Brii Are ll [facility] CPT-36586 Level 3 Est. Patient 09:12:56 CDT Arie mcqueen MD [facility] CPT-90353 Level 3 Est. Patient 16:40:54 CDT Jose Zhong MD [facility] CPT-96816 Level 2 Est. Patient 13:01:13 CDT Brii Are ll [facility] CPT-53515 Level 3 Est. Patient 11:55:30 RN ORTHOPAEDIC Jono black [facility] CPT-68398 Level 3 Est. Patient 09:52:36 RN ORTHOPAEDIC Brii Are ll [facility] CPT-14153 Level 3 Est. Patient 16:25:33 RN ORTHOPAEDIC Rich Rosales MD [facility] CPT-58269 Level 3 Est. Patient 20:33:55 CDT Arie mcqueen MD [facility] CPT-95406 Level 3 Est. Patient 14:18:20 CDT Rich Rosales MD [facility] CPT-47482 Level 4 Est. Patient 09:34:31 CDT Arie mcqueen MD [facility] CPT-69831 Level 3 Est. Patient 09:08:55 RN ORTHOPAEDIC Liliana vincent MD PhD [facility] CPT-01215 Level 3 Est. Patient 16:44:07 RN ORTHOPAEDIC Arie mcqueen MD [facility] CPT-58445 Level 3 Est. Patient 10:44:27 CDT Arie mcqueen MD [facility] CPT-82772 Level 3 Est. Patient 08:55:41 CDT Jose Zhong MD [facility] CPT-21807 Level 3 Est. Patient 18:37:31 CDT Liliana vincent MD PhD [facility] CPT-91885 Level 3 Est. Patient 14:28:23 CDT Abelardo HERNANDEZ [facility] CPT-11625 Level 3 Est. Patient 15:18:13 RN ORTHOPAEDIC Arie mcqueen MD [facility] CPT-08580 Level 3 Est. Patient 10:11:29 RN ORTHOPAEDIC Arie mcqueen MD [facility] CPT-38248 Level 3 Est. Patient 10:55:57 RN ORTHOPAEDIC Jono black DO [facility] CPT-31341 Level 3 Est. Patient 17:29:05 CDT Arie mcqueen MD [facility] Procedures Code Procedure Name Date Entry Date Standard Desc ription CPT-95151 Ear Wash with irrigation 17:21:41 CDT 07/04 CPT-02077 Nexplanon Removal 15:40:28 CDT CPT-56185 Sono transvag pelvis non OB uterus ovari es cervix - XRAY USE ONLY 08:58:14 RN ORTHOPAEDIC CPT-87803 UA w micro - LAB USE ONLY 16:04:56 RN ORTHOPAEDIC 2015 CPT-60333 Wet Prep/GEN - LAB USE ONLY 16:04:56 RN ORTHOPAEDIC 20 08/10/29 CPT-31073 First Vx - Ix admin via ID I M or jet injects without counseling by physician 16:57:10 CDT CPT-46001 Fluzone Preservative Free Intramuscular Suspension 16:57:10 CDT CPT-J0696 Rocephin 1000 mg (Ceftriaxone) 11:49:23 CDT CPT-J1040 Depo Medrol 80 mg (Methyl Prednisolone A cetate) 11:49:23 CDT CPT-J1100 Decadron 8mg (Dexamethasone) 11:49:23 CDT 2 CPT-47307 Abx/Therapy Injection 11:49:23 CDT CPT-59352 Abx/Therapy Injection 11:49:23 CDT CPT-23721 Abd compl w upright 09:07:26 RN ORTHOPAEDIC CPT-87109 Ear Wash 16:12:47 RN ORTHOPAEDIC CPT-OV Office Visit 11:12:01 CDT CPT-OV Office Visit 15:30:23 CDT CPT-59492 Sono pelvis non OB uterus ovaries cervix 15:50:44 CDT CPT-69289 Hand comp min 3V 16:42:32 CDT CPT-85831 Abd compl w upright 12:17:01 CDT CPT-69415 Nexplanon Placement 15:07:39 RN ORTHOPAEDIC CPT-97136 Removal of IUD 15:07:39 RN ORTHOPAEDIC CPT-70340 TB Tubersol 12:09:32 CDT CPT-84067 TB Tubersol 13:55:43 CDT
--- OUTSIDE RECORDS SUMMARY | 2020-03-03 07:55 | XMS REPORT | Clinical Summary ---
Author Author Admin, Diamante Marcelo Organization [facility] Address Unknown Phone Unavailable Allergies, Adverse [...] without mention of infection Sinusitis 461.9 Active Rihc Rosales MD Acute sinusitis, unspecified Cerumen impaction, [...] with depression 300.4 Active Brii Ramirez l LAW CLERK Dysthymic disorder URI 465.9 Active Jono Gagnon [...] lymph node 785.6 Active Brii Are ll LAW CLERK Enlargement of lymph nodes Influenza Vaccination for Prophylaxis V04.81 Inactive Arie Casper MD Need for prophylactic vaccin ation and inoculation against influenza BREAST CANCER ICD-V16.3 Inactive Jose Marcelo FH COLON CANCER ICD-V16.0 Inactive Jose Zhong MD DIABETES ICD-V18.0 Inactive Jose Zhnog MD 201 01/29/08 ACUTE FRONTAL SINUSITIS ICD-461.1 [...] MG ORAL CAPSULE 1 po tid CEPHALEXIN 321639 93294 Active Brii Russ APRN Active PROTONIX 40 MG ORAL TABLET DELAYED RELEASE 1 pill by m outh daily, for acid reflux PANTOPRAZOLE SODIUM 86456873829 Active Roseann Crawford Active AMOXICILLIN 875 MG ORAL TABLET 1 tab by mouth twice daily 1 AMOXICILLIN 30086539521 No Longer Active Brii Russ APRN Active ALPRAZOLAM 0.25 MG ORAL TABLET 1 tablet by mouth twice a day as needed for stress/anxiety ALPRAZOLAM 66833999553 Active KELLIE Escobar Active ESCITALOPRAM OXALATE 10 MG ORAL TABLET take 1 tab po qhs for mod 20 10/04/18 ESCITALOPRAM OXALATE 31919597902 Active Arie Casper MD Active TUSSIONEX PENNKINETIC ER 10-8 MG/5ML ORAL SUSPENSION E XTENDED RELEASE 5ml po q12hr PRN Cough HYDROCOD POLST-CHLORPHEN POLST 5 8526507788 No Longer Active Myrna Roberto MD Active ZITHROMAX Z-EMIL 250 MG TABS Take two tablets today and then 1 tablet daily for 4 days AZITHROMYCIN 64287741664 No Longer Active Flaco Rosales MD Active GUAIFENESIN DM 400-20 MG ORAL TABLET 1 pill by mouth t wice daily, if needed for cough DEXTROMETHORPHAN-GUAIFENESIN 14018192171 No Longer Active Rich Rosales MD Active CEFDINIR 300 MG ORAL CAPSULE 1 po BID x 10 days CEFDINIR 10869139085 No Longer Active Jillina Frazell LAW CLERK Active CHERATUSSIN AC 100-10 MG/5ML ORAL SYRUP 1 tsp by mouth every 4 hours as needed for cough GUAIFENESIN-CODEINE 84497054161 No Longe r Active Jessica Faithnaomi LAW CLERK Active TAMIFLU 75 MG ORAL CAPSULE 1 po BID x 5 days 0 OSELTAMIVIR PHOSPHATE 11835192795 No Longer Active Jose Zhong MD Activ e ZITHROMAX Z-EMIL 250 MG ORAL TABLET 2 today, then 1 daily for 4 d ays AZITHROMYCIN 56043346756 No Longer Active Arie Casper MD Active PROTONIX 40 MG ORAL TABLET DELAYED RELEASE 1 po q a.m. PANTOPRAZOLE SODIUM 05518178479 No Longer Active Arie Casper MD Active BACTRIM DS 800-160 MG ORAL TABLET 1 tab by mouth twice daily 201 05/02/30 TRIMETHOPRIM-SULFAMETHOXAZOLE 35815443845 No Longer Active R [facility] Active NEXPLANON IMPLANT right arm subcutaneously ETONOGESTREL IMPL 10113230325 No Longer Active Brii Arell LAW CLERK Active TUSSIONEX PENNKINETIC ER 10-8 MG/5ML ORAL SUSPENSION E XTENDED RELEASE 5ml po q12hr PRN Cough HYDROCOD POLST-CHLORPHEN POLST 5 1546130440 No Longer Active Brii Arell LAW CLERK Active CETIRIZINE HCL 10 MG ORAL TABLET 1 po qd PRN Allergies CETIRIZINE HCL 16300421531 No Longer Active Brii Arell LAW CLERK Activ e PREDNISONE 20 MG ORAL TABLET 2 tabs daily for 3 days, 1 tab daily for 3 days, 1/2 tab daily for 2 days PREDNISONE 94881971943 No Longer Active Arie Casper MD Active LOMOTIL 2.5-0.025 MG ORAL TABLET 1 tab po four times a day as needed for diarrhea DIPHENOXYLATE-ATROPINE 59853033801 No Lo nger Active Arie Casper MD Active ZOLOFT 50 MG ORAL TABLET 1 tablet by mouth daily 12/08 SERTRALINE HCL 89155586885 No Longer Active Arie Casper MD Ac tive NAPROXEN 500 MG ORAL TABLET Take 1 tab BID NAPR OXEN 16085909452 No Longer Active Arie Casper MD Active CEFDINIR 300 MG ORAL CAPSULE 1 po BID x 10 days CEFDINIR 34690375821 No Longer Active Brii Russ APRN Active PREDNISONE 20 MG ORAL TABLET 1 tablet daily for airway inflammat ion PREDNISONE 86218857828 No Longer Active Brii Russ APRN A ctive CEFDINIR 300 MG ORAL CAPSULE 1 po BID x 10 days CEFDINIR 50621534195 No Longer Active Jono Gagnon DO Active FLONASE 50 MCG/ACT NASAL SUSPENSION 1 spray each nostr il twice daily for allergies and runny nose until gone FLUT ICASONE PROPIONATE 69492513093 No Longer Active Jono Gagnon DO Active ALPRAZOLAM 0.25 MG ORAL TABLET 1 tablet by mouth every 8 hours as needed for stress ALPRAZOLAM 66579511283 No Longer Active Jono Gagnon DO Active ZITHROMAX Z-EMIL 250 MG ORAL TABLET 2 today, then 1 daily for 4 d ays AZITHROMYCIN 81129970615 No Longer Active Arie Casper MD Active PREDNISONE 20 MG ORAL TABLET 2 tabs daily for 3 days, 1 tab daily for 3 days, 1/2 tab daily for 2 days PREDNISONE 41526411660 No Longer Active Brii Russ APRN Active PREDNISONE 20 MG ORAL TABLET 1 tablet twice daily for 2 days, then 1 tablet once daily for 2 days PREDNISONE 11206670768 No Longer Active Brii Russ APRN Active PROMETHAZINE HCL 12.5 MG ORAL TABLET 1 tablet by mouth every 6 hours as needed for nausea/vomiting PROMETHAZINE HCL 48833216071 No L onger Active Jono Gagnon DO Active CITRATE OF MAGNESIA ORAL SOLUTION 1 bottle today for constipatio n MAGNESIUM CITRATE 26526943985 No Longer Active Jono Gagnon DO Active ZOFRAN 4 MG ORAL TABLET 1 TAB PO Q 6 HRS PRN NAUSEA 07/10/15 ONDANSETRON HCL 19649717629 No Longer Active Brii Russ APRN Acti ve LOMOTIL 2.5-0.025 MG ORAL TABLET 1 to 2 four times a day as needed for diarrhea DIPHENOXYLATE-ATROPINE 32332566799 No Longer Active January Russ APRN Active AMOXICILLIN 500 MG ORAL TABLET 2 tabs twice a day for 10 days 07/09/11 AMOXICILLIN 56440018753 No Longer Active Brii Russ APRN Active CYCLOBENZAPRINE HCL 10 MG ORAL TABLET 1/2 - 1 tablet b y mouth three times daily as needed for muscle spasm/pain CYCLOBENZAPRINE HCL 55278382032 No Longer Active Arie Casper MD Active LOMOTIL 2.5-0.025 MG ORAL TABLET 1 to 2 four times a day as needed for diarrhea DIPHENOXYLATE-ATROPINE 88828144534 No Longer Active Fozia Casper MD Active MACROBID 100 MG ORAL CAPSULE 1 cap by mouth twice daily NITROFURANTOIN MONOHYD MACRO 18041177053 No Longer Active Arie Casper MD Active ZYRTEC ALLERGY 10 MG ORAL CAPSULE 1 po qd CE TIRIZINE HCL 34346193503 No Longer Active Arie Casper MD Active AZITHROMYCIN 250 MG ORAL TABLET 2 po qd x 1 day, then 1 po q d x 4 days AZITHROMYCIN 86876690186 No Longer Active Jessica salgado APRN Active PREDNISONE 20 MG ORAL TABLET 2 tabs daily for 3 days, 1 tab daily for 3 days, 1/2 tab daily for 2 days PREDNISONE 45455267492 No Longer Active Jessica Heaton APRN Active PROMETHAZINE HCL 25 MG ORAL TABLET 1 four times a day as nee ded for vomiting PROMETHAZINE HCL 71600155580 No Longer Active Myrna Roberto MD Active BACTRIM DS 800-160 MG ORAL TABLET 1 twice a day 05/30 SULFAMETHOXAZOLE-TRIMETHOPRIM 63338446251 No Longer Active Myrna Roberto MD Active VICKS DAYQUIL SEVERE COLD/FLU TABLET 1 tab every 6 hours prn 201 02/22/17 [id number] TABS 70217797367 No Longer Active Chris Roberto MD Active GUAIFENESIN-CODEINE 100-10 MG/5ML ORAL SYRUP 2 tsp every 6 hours prn GUAIFENESIN-CODEINE 97316307517 No Longer Active Myrna Roberto MD Active NAPROXEN 500 MG ORAL TABLET one tab PO BID NAPR OXEN 71227897899 No Longer Active Myrna Roberto MD Active AUGMENTIN 875-125 MG ORAL TABLET 1 tab by mouth twice daily with food AMOXICILLIN-POT CLAVULANATE 53488705505 No Longer Act zaid Liliana Estrada MD PhD Active AMOXICILLIN 500 MG ORAL CAPSULE 1 tab by mouth 3 times daily 201 02/21/05 AMOXICILLIN 30087901782 No Longer Active Liliana Estrada MD PhD Active TESSALON PERLES 100 MG ORAL CAPSULE 1 tablet by mouth 3 times da cory BENZONATATE 05702846095 No Longer Active Liliana Estrada MD PhD Active FLAGYL 500 MG ORAL TABLET 1 tablet by mouth two times daily 2014 METRONIDAZOLE 43027486117 No Longer Active Nilam Raida Ac tive ZITHROMAX 250 MG ORAL TABLET 2 po today, then 1 po q days 2-5 20 06/08/16 AZITHROMYCIN 73250110994 No Longer Active Arie Casper MD Active VITAMINS 0.8 MG ORAL TABLET take 1 tab po qday [id number] 14073273428 No Longer Active Arie Casper MD Active IBUPROFEN 800 MG ORAL TABLET take one po Q 8 hours 201 02/01/16 IBUPROFEN 64158319948 No Longer Active Arie Casper MD Acti ve [facility] TUSSIN COUGH/COLD CF 5-10-100 MG/5ML ORAL LIQUID 2 teasp oons every 4 hours [id number] 27898098982 No Longer Active Blaine Casper MD Active COMTREX COLD/COUGH DAY/NITE MS 5-2-10-325 MG ORAL 2 caps deja ry 4 hours [id number] 97908074411 No Longer Active Landon Casper MD Active CHLORASEPTIC MAX SORE THROAT 15-10 MG MOUTH/THROAT LOZENGE 1 every 2 hours prn BENZOCAINE-MENTHOL 33641832050 No Longer Active Arie Casper MD Active PREDNISONE 20 MG ORAL TABLET 2 tabs daily for 3 days, 1 tab daily for 3 days, 1/2 tab daily for 2 days PREDNISONE 44222140648 No Longer Active Jose Zhong MD Active AZITHROMYCIN 250 MG ORAL TABLET 2 po qd x 1 day, then 1 po q d x 4 days AZITHROMYCIN 62923806260 No Longer Active Jose Mcwilliams MD Active ZOFRAN ODT 4 MG ORAL TABLET DISINTEGRATING 1 po q6hr PRN Nausea ONDANSETRON 54510638087 No Longer Active Rich Rosales MD Active ZOFRAN 4 MG ORAL TABLET 1 tablet every 4 hours ONDANSETRON HCL 68397786955 No Longer Active Rich Rosales MD Activ e MUCINEX 600 MG ORAL TABLET EXTENDED RELEASE 12 HOUR Ta ke 1-2 tablets every 12 hours GUAIFENESIN 52314348407 No Longer Active Rich Rosales MD Active BACTRIM 400-80 MG ORAL TABLET take one po BID SULFAMETHOXAZOLE-TRIMETHOPRIM 90389547379 No Longer Active Abelardo HERNANDEZ Active AZITHROMYCIN 500 MG ORAL TABLET 1 PO q day x 6 days 03/02/23 AZITHROMYCIN 33145011678 No Longer Active Tin HERNANDEZ Activ e ZITHROMAX 250 MG ORAL TABLET 2 po today, then 1 po q days 2-5 20 10/03/08 AZITHROMYCIN 50811263063 No Longer Active Arie Casper MD Active ZITHROMAX 250 MG ORAL TABLET 2 po today, then 1 po q days 2-5 20 09/23/25 AZITHROMYCIN 12887241757 No Longer Active Arie Casper MD Active AMOXICILLIN 500 MG ORAL CAPSULE 1 tab by mouth 3 times daily 201 11/24/09 AMOXICILLIN 30780871234 No Longer Active Arie Casper MD Active BACTRIM DS 800-160 MG ORAL TABLET 1 tab by mouth twice daily 201 11/03/14 TRIMETHOPRIM-SULFAMETHOXAZOLE 78930017478 No Longer Active Fozia Casper MD Active AMOXICILLIN 500 MG ORAL TABLET take 1 tab po TID 08/05 AMOXICILLIN 71329906591 No Longer Active Arie Casper MD Acti ve BACTRIM DS 800-160 MG ORAL TABLET 1 tab by mouth twice daily 201 11/03/14 BACTRIM DS 800-160 MG ORAL TABLET 568337 TRIMETHOPRIM-SULFAMETHOXAZOLE Inactive MUCINEX 600 MG ORAL TABLET EXTENDED RELEASE 12 HOUR Ta ke 1-2 tablets every 12 hours MUCINEX 600 MG ORAL TABLET EXTENDED RELEA SE 12 HOUR GUAIFENESIN Inactive ZOFRAN 4 MG ORAL TABLET 1 tablet every 4 hours ZOFRAN 4 MG ORAL TABLET 515860 ONDANSETRON HCL Inactive ZOFRAN ODT 4 MG ORAL TABLET DISINTEGRATING 1 po q6hr PRN Nausea ZOFRAN ODT 4 MG ORAL TABLET DISINTEGRATING 611840 ONDAN SETRON Inactive CHLORASEPTIC MAX SORE THROAT 15-10 MG MOUTH/THROAT LOZENGE 1 every 2 hours prn CHLORASEPTIC MAX SORE THROAT 15-10 MG MOUTH/THROAT LOZENGE BENZOCAINE-MENTHOL Inactive COMTREX COLD/COUGH DAY/NITE MS 5-2-10-325 MG ORAL 2 caps deja ry 4 hours COMTREX COLD/COUGH DAY/NITE MS 5-2-10-325 MG ORA L [id number] Inactive [facility] TUSSIN COUGH/COLD CF 5-10-100 MG/5ML ORAL LIQUID 2 teasp oons every 4 hours [facility] TUSSIN COUGH/COLD CF 5-10-100 MG/5ML ORAL LI QUID [id number] Inactive IBUPROFEN 800 MG ORAL TABLET take one po Q 8 hours 201 02/01/16 IBUPROFEN 800 MG ORAL TABLET 777497 IBUPROFEN Inactive VITAMINS 0.8 MG ORAL TABLET take 1 tab po qday VITAMINS 0.8 MG ORAL TABLET [id number] E-FA Inactive TESSALON PERLES 100 MG ORAL CAPSULE 1 tablet by mouth 3 times da cory TESSALON PERLES 100 MG ORAL CAPSULE 930154 BENZONATATE Inactive AMOXICILLIN 500 MG ORAL CAPSULE 1 tab by mouth 3 times daily 201 02/21/05 AMOXICILLIN 500 MG ORAL CAPSULE 530354 AMOXICILLIN Inactive GUAIFENESIN-CODEINE 100-10 MG/5ML ORAL SYRUP 2 tsp every 6 hours prn GUAIFENESIN-CODEINE 100-10 MG/5ML ORAL SYRUP 499717 GUAIFENESIN-CODEINE Inactive VICKS DAYQUIL SEVERE COLD/FLU TABLET 1 tab every 6 hours prn 201 02/22/17 VICKS DAYQUIL SEVERE COLD/FLU TABLET PHENYLEPHRI [id number]-APAP TABS Inactive BACTRIM DS 800-160 MG ORAL TABLET 1 twice a day 05/30 BACTRIM DS 800-160 MG ORAL TABLET 281663 SULFAMETHOXAZOLE-TRIMETHOPRIM Inactiv e PROMETHAZINE HCL 25 MG ORAL TABLET 1 four times a day as nee ded for vomiting PROMETHAZINE HCL 25 MG ORAL TABLET 001432 PROMETHAZINE HCL Inactive ZYRTEC ALLERGY 10 MG ORAL CAPSULE 1 po qd ZYRTEC ALLERGY 10 MG ORAL CAPSULE CETIRIZINE HCL Inactive MACROBID 100 MG ORAL CAPSULE 1 cap by mouth twice daily MACROBID 100 MG ORAL CAPSULE 5319626 NITROFURANTOIN MONOHYD MACRO In active LOMOTIL 2.5-0.025 MG ORAL TABLET 1 to 2 four times a day as needed for diarrhea LOMOTIL 2.5-0.025 MG ORAL TABLET 7310674 DIPHENOXYLATE-ATROPINE Inactive CYCLOBENZAPRINE HCL 10 MG ORAL TABLET 1/2 - 1 tablet b y mouth three times daily as needed for muscle spasm/pain CYCLOBEN ZAPRINE HCL 10 MG ORAL TABLET 842048 CYCLOBENZAPRINE HCL Inactive AMOXICILLIN 500 MG ORAL TABLET 2 tabs twice a day for 10 days 07/09/11 AMOXICILLIN 500 MG ORAL TABLET 937729 AMOXICILLIN I nactive LOMOTIL 2.5-0.025 MG ORAL TABLET 1 to 2 four times a day as needed for diarrhea LOMOTIL 2.5-0.025 MG ORAL TABLET 8274611 DIPHENOXYLATE-ATROPINE Inactive ZOFRAN 4 MG ORAL TABLET 1 TAB PO Q 6 HRS PRN NAUSEA 07/10/15 ZOFRAN 4 MG ORAL TABLET 804535 ONDANSETRON HCL Inactive CITRATE OF MAGNESIA ORAL SOLUTION 1 bottle today for constipatio n CITRATE OF MAGNESIA ORAL SOLUTION 9470181 MAGNESIUM CITR ATE Inactive PROMETHAZINE HCL 12.5 MG ORAL TABLET 1 tablet by mouth every 6 hours as needed for nausea/vomiting PROMETHAZINE HCL 12.5 MG ORA L TABLET 347526 PROMETHAZINE HCL Inactive PREDNISONE 20 MG ORAL TABLET 1 tablet twice daily for 2 days, then 1 tablet once daily for 2 days PREDNISONE 20 MG ORAL TABLET 492263 PREDNISONE Inactive ALPRAZOLAM 0.25 MG ORAL TABLET 1 tablet by mouth every 8 hours as needed for stress ALPRAZOLAM 0.25 MG ORAL TABLET 433465 ALPRA ZOLAM Inactive FLONASE 50 MCG/ACT NASAL SUSPENSION 1 spray each nostr il twice daily for allergies and runny nose until gone FLON ASE 50 MCG/ACT NASAL SUSPENSION 2507844 FLUTICASONE PROPIONATE Inactive PREDNISONE 20 MG ORAL TABLET 1 tablet daily for airway inflammat ion PREDNISONE 20 MG ORAL TABLET 045686 PREDNISONE Arlen ctive NAPROXEN 500 MG ORAL TABLET Take 1 tab BID NAPROXEN 500 MG ORAL TABLET 629621 NAPROXEN Inactive ZOLOFT 50 MG ORAL TABLET 1 tablet by mouth daily 12/08 ZOLOFT 50 MG ORAL TABLET 132793 SERTRALINE HCL Inactive LOMOTIL 2.5-0.025 MG ORAL TABLET 1 tab po four times a day as needed for diarrhea LOMOTIL 2.5-0.025 MG ORAL TABLET 8736350 DIPHENOXYLATE-ATROPINE Inactive CETIRIZINE HCL 10 MG ORAL TABLET 1 po qd PRN Allergies CETIRIZINE HCL 10 MG ORAL TABLET 2571157 CETIRIZINE HCL Inactiv e TUSSIONEX PENNKINETIC ER 10-8 MG/5ML ORAL SUSPENSION E XTENDED RELEASE 5ml po q12hr PRN Cough TUSSIONEX PENNKINETI C ER 10-8 MG/5ML ORAL SUSPENSION EXTENDED RELEASE HYDROCOD POLST-CHLORPHEN POLST I nactive NEXPLANON IMPLANT right arm subcutaneously NEXPLANON IMPLANT ETONOGESTREL IMPL Inactive PROTONIX 40 MG ORAL TABLET DELAYED RELEASE 1 po q a.m. PROTONIX 40 MG ORAL TABLET DELAYED RELEASE 142625 PANTOPRAZOLE SODI UM Inactive CHERATUSSIN AC 100-10 MG/5ML ORAL SYRUP 1 tsp by mouth every 4 hours as needed for cough CHERATUSSIN AC 100-10 MG/5ML ORAL SYRUP 9 29686 GUAIFENESIN-CODEINE Inactive GUAIFENESIN DM 400-20 MG ORAL TABLET 1 pill by mouth t wice daily, if needed for cough GUAIFENESIN DM 400-20 MG ORAL TABLET 1149 061 DEXTROMETHORPHAN-GUAIFENESIN Inactive TUSSIONEX PENNKINETIC ER 10-8 MG/5ML ORAL SUSPENSION E XTENDED RELEASE 5ml po q12hr PRN Cough TUSSIONEX PENNKINETI C ER 10-8 MG/5ML ORAL SUSPENSION EXTENDED RELEASE HYDROCOD POLST-CHLORPHEN POLST I nactive AMOXICILLIN 500 MG ORAL TABLET take 1 tab po TID 08/05 AMOXICILLIN 500 MG ORAL TABLET 436236 AMOXICILLIN Inactive AMOXICILLIN 500 MG ORAL CAPSULE 1 tab by mouth 3 times daily 201 11/24/09 AMOXICILLIN 500 MG ORAL CAPSULE 056140 AMOXICILLIN Inactive ZITHROMAX 250 MG ORAL TABLET 2 po today, then 1 po q days 2-5 20 09/23/25 ZITHROMAX 250 MG ORAL TABLET 044574 AZITHROMYCIN Arlen ctive ZITHROMAX 250 MG ORAL TABLET 2 po today, then 1 po q days 2-5 20 10/03/08 ZITHROMAX 250 MG ORAL TABLET 861994 AZITHROMYCIN Arlen ctive AZITHROMYCIN 500 MG ORAL TABLET 1 PO q day x 6 days 03/02/23 AZITHROMYCIN 500 MG ORAL TABLET 9543228 AZITHROMYCIN Inactive BACTRIM 400-80 MG ORAL TABLET take one po BID BACTRIM 400- 80 MG ORAL TABLET 251728 SULFAMETHOXAZOLE-TRIMETHOPRIM Inactive AZITHROMYCIN 250 MG ORAL TABLET 2 po qd x 1 day, then 1 po q d x 4 days AZITHROMYCIN 250 MG ORAL TABLET 443575 AZITHROMY ALLISON Inactive PREDNISONE 20 MG ORAL TABLET 2 tabs daily for 3 days, 1 tab daily for 3 days, 1/2 tab daily for 2 days PREDNISONE 20 MG ORAL T ABLET 320696 PREDNISONE Inactive ZITHROMAX 250 MG ORAL TABLET 2 po today, then 1 po q days 2-5 20 06/08/16 ZITHROMAX 250 MG ORAL TABLET 957625 AZITHROMYCIN [place] ctive FLAGYL 500 MG ORAL TABLET 1 tablet by mouth two times daily 2014 FLAGYL 500 MG ORAL TABLET 973765 METRONIDAZOLE Inacti ve AUGMENTIN 875-125 MG ORAL TABLET 1 tab by mouth twice daily with food AUGMENTIN 875-125 MG ORAL TABLET 682180 AMOXICIL ELSA-POT CLAVULANATE Inactive NAPROXEN 500 MG ORAL TABLET one tab PO BID NAPROXEN 500 MG ORAL TABLET 151215 NAPROXEN Inactive PREDNISONE 20 MG ORAL TABLET 2 tabs daily for 3 days, 1 tab daily for 3 days, 1/2 tab daily for 2 days PREDNISONE 20 MG ORAL T ABLET 367578 PREDNISONE Inactive AZITHROMYCIN 250 MG ORAL TABLET 2 po qd x 1 day, then 1 po q d x 4 days AZITHROMYCIN 250 MG ORAL TABLET 308391 AZITHROMY ALLISON Inactive PREDNISONE 20 MG ORAL TABLET 2 tabs daily for 3 days, 1 tab daily for 3 days, 1/2 tab daily for 2 days PREDNISONE 20 MG ORAL T ABLET 205156 PREDNISONE Inactive ZITHROMAX Z-EMIL 250 MG ORAL TABLET 2 today, then 1 daily for 4 d ays ZITHROMAX Z-EMIL 250 MG ORAL TABLET 901086 AZITHROMYCIN Inactive CEFDINIR 300 MG ORAL CAPSULE 1 po BID x 10 days 12/18 CEFDINIR 300 MG ORAL CAPSULE 786445 CEFDINIR Inactive CEFDINIR 300 MG ORAL CAPSULE 1 po BID x 10 days CEFDINIR 300 MG ORAL CAPSULE 456047 CEFDINIR Inactive PREDNISONE 20 MG ORAL TABLET 2 tabs daily for 3 days, 1 tab daily for 3 days, 1/2 tab daily for 2 days PREDNISONE 20 MG ORAL T ABLET 887043 PREDNISONE Inactive BACTRIM DS 800-160 MG ORAL TABLET 1 tab by mouth twice daily 201 05/02/30 BACTRIM DS 800-160 MG ORAL TABLET 081948 TRIMETHOPRIM-SULFAMETHOXAZOLE Inactive ZITHROMAX Z-EMIL 250 MG ORAL TABLET 2 today, then 1 daily for 4 d ays ZITHROMAX Z-EMIL 250 MG ORAL TABLET 674858 AZITHROMYCIN Inactive TAMIFLU 75 MG ORAL CAPSULE 1 po BID x 5 days 0 TAMIFLU 75 MG ORAL CAPSULE 859583 OSELTAMIVIR PHOSPHATE Inactive CEFDINIR 300 MG ORAL CAPSULE 1 po BID x 10 days 01/03 CEFDINIR 300 MG ORAL CAPSULE 923043 CEFDINIR Inactive ZITHROMAX Z-EMIL 250 MG TABS Take two tablets today and then 1 tablet daily for 4 days ZITHROMAX Z-EMIL 250 MG TABS 125890 AZITHROM YCIN Inactive AMOXICILLIN 875 MG ORAL TABLET 1 tab by mouth twice daily AMOXICILLIN 875 MG ORAL TABLET 237403 AMOXICILLIN Inactive Advance Directives Directive Description Start [...] Negative Encounters Code Encounter Date Provider Facility [facility]-10459 [id number] Vst-Est Level III 09:41:31 CDT Arie Casper MD [facility]-57386 54091-Zrl Vst-Est Level III 18:20:11 CDT [facility] 51289-Rhw Vst-Est Level III 17:21:41 CDT [facility] 75234-Chg Vst-Est Level IV 13:30:22 C DT Arie Casper MD [facility]-51417 Level 4 Est. Patient 13:05:26 CDT Myrna maldonado MD [facility]-57844 06273-Ztr Vst-Est Level IV 20:50:21 C DT Arie Casper MD [facility]-55025 Level 3 Est. Patient 11:49:34 RN IMAGING Jessica boyd [facility]-32274 Level 3 Est. Patient 14:55:50 RN IMAGING Jose Zhong MD [facility]-47081 Level 3 Est. Patient 10:21:41 RN IMAGING Arie mcqueen MD [facility]-78743 Level 3 Est. Patient 11:35:15 RN IMAGING Arie mcqueen MD [facility]-88240 Level 3 Est. Patient 15:40:28 CDT Brii Are ll [facility] CPT-78851 Level 3 Est. Patient 16:40:36 CDT Arie mcqueen MD [facility]-96564 Level 4 Est. Patient 15:29:22 RN IMAGING Arie mcqueen MD [facility] CPT-71118 Level 3 Est. Patient 15:18:16 RN IMAGING Jono black [facility] CPT-97459 Level 4 Est. Patient 12:08:40 RN IMAGING Brii Are ll [facility] CPT-14122 Level 3 Est. Patient 09:24:42 CDT Brii Are [facility] CPT-61845 Level 3 Est. Patient 09:12:56 CDT Arie mcqueen MD [facility] CPT-23733 Level 3 Est. Patient 16:40:54 CDT Jose Zhong MD [facility] CPT-53555 Level 2 Est. Patient 13:01:13 CDT Brii Are ll [facility] CPT-02432 Level 3 Est. Patient 11:55:30 RN IMAGING Jono black [facility] CPT-14500 Level 3 Est. Patient 09:52:36 RN IMAGING Brii Are ll [facility][note 3] CPT-72280 Level 3 Est. Patient 16:25:33 RN IMAGING Rich Rosales MD [facility] CPT-59823 Level 3 Est. Patient 20:33:55 CDT Arie mcqueen MD [facility] CPT-10188 Level 3 Est. Patient 14:18:20 CDT Rich Rosales MD [facility] CPT-92476 Level 4 Est. Patient 09:34:31 CDT Arie mcqueen MD [facility]-26500 Level 3 Est. Patient 09:08:55 RN IMAGING Liliana vincent MD PhD [facility] CPT-27015 Level 3 Est. Patient 16:44:07 RN IMAGING Arie mcqueen MD [facility] CPT-72161 Level 3 Est. Patient 10:44:27 CDT Arie mcqueen MD [facility] CPT-51356 Level 3 Est. Patient 08:55:41 CDT Jose Zhong MD [facility] CPT-16704 Level 3 Est. Patient 18:37:31 CDT Liliana vincent MD PhD [facility] CPT-75557 Level 3 Est. Patient 14:28:23 CDT Abelardo HERNANDEZ [facility] CPT-35020 Level 3 Est. Patient 15:18:13 RN IMAGING Arie mcqueen MD [facility] CPT-26458 Level 3 Est. Patient 10:11:29 RN IMAGING Arie mcqueen MD [facility] CPT-26486 Level 3 Est. Patient 10:55:57 RN IMAGING Jono black DO [facility] CPT-46673 Level 3 Est. Patient 17:29:05 CDT Arie mcqueen MD [facility] Procedures Code Procedure Name Date Entry Date Standard Desc ription CPT-97516 Ear Wash with irrigation 17:21:41 CDT 07/04 CPT-89064 Nexplanon Removal 15:40:28 CDT CPT-79995 Sono transvag pelvis non OB uterus ovari es cervix - XRAY USE ONLY 08:58:14 RN IMAGING CPT-42665 UA w micro - LAB USE ONLY 16:04:56 RN IMAGING 2015 CPT-41973 Wet Prep/GEN - LAB USE ONLY 16:04:56 RN IMAGING 20 08/10/29 CPT-37399 First Vx - Ix admin via ID I M or jet injects without counseling by physician 16:57:10 CDT CPT-28982 Fluzone Preservative Free Intramuscular Suspension 16:57:10 CDT CPT-J0696 Rocephin 1000 mg (Ceftriaxone) 11:49:23 CDT CPT-J1040 Depo Medrol 80 mg (Methyl Prednisolone A cetate) 11:49:23 CDT CPT-J1100 Decadron 8mg (Dexamethasone) 11:49:23 CDT 2 CPT-96458 Abx/Therapy Injection 11:49:23 CDT CPT-31926 Abx/Therapy Injection 11:49:23 CDT CPT-38482 Abd compl w upright 09:07:26 RN IMAGING CPT-14713 Ear Wash 16:12:47 RN IMAGING CPT-OV Office Visit 11:12:01 CDT CPT-OV Office Visit 15:30:23 CDT CPT-06412 Sono pelvis non OB uterus ovaries cervix 15:50:44 CDT CPT-93319 Hand comp min 3V 16:42:32 CDT CPT-62689 Abd compl w upright 12:17:01 CDT CPT-19822 Nexplanon Placement 15:07:39 RN IMAGING CPT-81226 Removal of IUD 15:07:39 RN IMAGING CPT-83673 TB Tubersol 12:09:32 CDT CPT-98105 TB Tubersol 13:55:43 CDT
--- OUTSIDE RECORDS SUMMARY | 2020-03-03 07:56 | XMS REPORT | Clinical Summary ---
Author Author Admin, Diamante Marcelo Organization [facility] Address Unknown Phone Unavailable Allergies, Adverse Reactions, [...] with depression 300.4 Active Brii Ramirez l [employer] Dysthymic disorder URI 465.9 Active Jono [...] lymph node 785.6 Active Brii Are ll [employer] Enlargement of lymph nodes FH BREAST CANCER ICD-V16.3 Inactive Jose Marcelo FH COLON CANCER ICD-V16.0 Inactive Jose Zhong MD FH DIABETES ICD-V18.0 Inactive Jose Zhong MD 201 01/29/08 ACUTE FRONTAL SINUSITIS ICD-461.1 Inactive eMghan Estrada MD PhD CYSTITIS ICD-595.9 Inactive Liliana [...] for Prophylaxis ICD-V04.81 6 Inactive Carole HOPKINS Medication List Medication Instructions Start Date Stop Date Generic Name NDC Status Provider Patient Instruction KEFLEX 500 MG ORAL CAPSULE 1 po tid CEPHALEXIN 290892 80502 Active Brii Russ APRN Active PROTONIX 40 MG ORAL TABLET DELAYED RELEASE 1 pill by m outh daily, for acid reflux PANTOPRAZOLE SODIUM 37482416372 Active Roseann Ty Active AMOXICILLIN 875 MG ORAL TABLET 1 tab by mouth twice daily 1 AMOXICILLIN 01851570073 No Longer Active Brii Russ APRN Active ALPRAZOLAM 0.25 MG ORAL TABLET 1 tablet by mouth twice a day as needed for stress/anxiety ALPRAZOLAM 45176101650 Active KELLIE Escobar Active ESCITALOPRAM OXALATE 10 MG ORAL TABLET take 1 tab po qhs for mod 20 10/04/18 ESCITALOPRAM OXALATE 96530546047 Active Arie Casper MD Active TUSSIONEX PENNKINETIC ER 10-8 MG/5ML ORAL SUSPENSION E XTENDED RELEASE 5ml po q12hr PRN Cough HYDROCOD POLST-CHLORPHEN POLST 5 6550032957 No Longer Active Myrna Roberto MD Active ZITHROMAX Z-EMIL 250 MG TABS Take two tablets today and then 1 tablet daily for 4 days AZITHROMYCIN 55324697141 No Longer Active Flaco Rosales MD Active GUAIFENESIN DM 400-20 MG ORAL TABLET 1 pill by mouth t wice daily, if needed for cough DEXTROMETHORPHAN-GUAIFENESIN 92095403394 No Longer Active Rich Rosales MD Active CEFDINIR 300 MG ORAL CAPSULE 1 po BID x 10 days CEFDINIR 38302296980 No Longer Active Jessica Heaton APRN Active CHERATUSSIN AC 100-10 MG/5ML ORAL SYRUP 1 tsp by mouth every 4 hours as needed for cough GUAIFENESIN-CODEINE 49802030912 No Longe r Active Jessica Heaton APRN Active TAMIFLU 75 MG ORAL CAPSULE 1 po BID x 5 days 0 OSELTAMIVIR PHOSPHATE 97908799059 No Longer Active Jose Zhong MD Activ e ZITHROMAX Z-EMIL 250 MG ORAL TABLET 2 today, then 1 daily for 4 d ays AZITHROMYCIN 57770440958 No Longer Active Arie Casper MD Active PROTONIX 40 MG ORAL TABLET DELAYED RELEASE 1 po q a.m. 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 CETIRIZINE HCL 10 MG ORAL TABLET 1 po qd PRN Allergies CETIRIZINE HCL 42195111389 No Longer Active 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ctiv e PREDNISONE 20 MG ORAL TABLET 2 tabs daily for 3 days, 1 tab daily for 3 days, 1/2 tab daily for 2 days PREDNISONE 90742470263 No Longer Active Arie Casper MD Active LOMOTIL 2.5-0.025 MG ORAL TABLET 1 tab po four times a day as needed for diarrhea DIPHENOXYLATE-ATROPINE 40245536837 No Lo nger Active Arie Casper MD Active ZOLOFT 50 MG ORAL TABLET 1 tablet by mouth daily 12/08 SERTRALINE HCL 08795267244 No Longer Active Arie Casper MD Ac tive NAPROXEN 500 MG ORAL TABLET Take 1 tab BID NAPR OXEN 23938974080 No Longer Active Arie Casper MD Active CEFDINIR 300 MG ORAL CAPSULE 1 po BID x 10 days CEFDINIR 99813327343 No Longer Active 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 PREDNISONE 20 MG ORAL TABLET 1 tablet daily for airway inflammat ion PREDNISONE 92300608971 No Longer Active 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 Arell 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 ctive CEFDINIR 300 MG ORAL CAPSULE 1 po BID x 10 days CEFDINIR 49957565368 No Longer Active Jono Gagnon DO Active FLONASE 50 MCG/ACT NASAL SUSPENSION 1 spray each nostr il twice daily for allergies and runny nose until gone FLUT ICASONE PROPIONATE 17538110911 No Longer Active Jono Gagnon DO Active ALPRAZOLAM 0.25 MG ORAL TABLET 1 tablet by mouth every 8 hours as needed for stress ALPRAZOLAM 41250963330 No Longer Active Jono Gagnon DO Active ZITHROMAX Z-EMIL 250 MG ORAL TABLET 2 today, then 1 daily for 4 d ays AZITHROMYCIN 50263064720 No Longer Active Arie Casper MD Active PREDNISONE 20 MG ORAL TABLET 2 tabs daily for 3 days, 1 tab daily for 3 days, 1/2 tab daily for 2 days PREDNISONE 71431714039 No Longer Active 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 PREDNISONE 20 MG ORAL TABLET 1 tablet twice daily for 2 days, then 1 tablet once daily for 2 days PREDNISONE 35444528972 No Longer Active 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 PROMETHAZINE HCL 12.5 MG ORAL TABLET 1 tablet by mouth every 6 hours as needed for nausea/vomiting PROMETHAZINE HCL 81363535903 No L onger Active Jono Gagnon DO Active CITRATE OF MAGNESIA ORAL SOLUTION 1 bottle today for constipatio n MAGNESIUM CITRATE 31663158884 No Longer Active Jono Gagnon DO Active ZOFRAN 4 MG ORAL TABLET 1 TAB PO Q 6 HRS PRN NAUSEA 07/10/15 ONDANSETRON HCL 68297717379 No Longer Active Brii Russ APRN Acti ve LOMOTIL 2.5-0.025 MG ORAL TABLET 1 to 2 four times a day as needed for diarrhea DIPHENOXYLATE-ATROPINE 38134083364 No Longer Active January Russ APRN Active AMOXICILLIN 500 MG ORAL TABLET 2 tabs twice a day for 10 days 07/09/11 AMOXICILLIN 77791602620 No Longer Active Brii Russ APRN Active CYCLOBENZAPRINE HCL 10 MG ORAL TABLET 1/2 - 1 tablet b y mouth three times daily as needed for muscle spasm/pain CYCLOBENZAPRINE HCL 02861470550 No Longer Active Arie Casper MD Active LOMOTIL 2.5-0.025 MG ORAL TABLET 1 to 2 four times a day as needed for diarrhea DIPHENOXYLATE-ATROPINE 54566695826 No Longer Active Fozia Casper MD Active MACROBID 100 MG ORAL CAPSULE 1 cap by mouth twice daily NITROFURANTOIN MONOHYD MACRO 48271885520 No Longer Active Arie Casper MD Active ZYRTEC ALLERGY 10 MG ORAL CAPSULE 1 po qd CE TIRIZINE HCL 36860639394 No Longer Active Arie Casper MD Active AZITHROMYCIN 250 MG ORAL TABLET 2 po qd x 1 day, then 1 po q d x 4 days AZITHROMYCIN 85866204727 No Longer Active Jessica salgado APRN Active PREDNISONE 20 MG ORAL TABLET 2 tabs daily for 3 days, 1 tab daily for 3 days, 1/2 tab daily for 2 days PREDNISONE 02359604448 No Longer Active Jessica Heaton APRN Active PROMETHAZINE HCL 25 MG ORAL TABLET 1 four times a day as nee ded for vomiting PROMETHAZINE HCL 30487543884 No Longer Active Myrna Roberto MD Active BACTRIM DS 800-160 MG ORAL TABLET 1 twice a day 05/30 SULFAMETHOXAZOLE-TRIMETHOPRIM 80839247152 No Longer Active Myrna Roberto MD Active VICKS DAYQUIL SEVERE COLD/FLU TABLET 1 tab every 6 hours prn 201 02/22/17 [id number] TABS 46354904996 No Longer Active Chris Roberto MD Active GUAIFENESIN-CODEINE 100-10 MG/5ML ORAL SYRUP 2 tsp every 6 hours prn GUAIFENESIN-CODEINE 65136754784 No Longer Active Myrna Roberto MD Active NAPROXEN 500 MG ORAL TABLET one tab PO BID NAPR OXEN 94119758763 No Longer Active Myrna Roberto MD Active AUGMENTIN 875-125 MG ORAL TABLET 1 tab by mouth twice daily with food AMOXICILLIN-POT CLAVULANATE 95220788880 No Longer Act zaid Liliana Estrada MD PhD Active AMOXICILLIN 500 MG ORAL CAPSULE 1 tab by mouth 3 times daily 201 02/21/05 AMOXICILLIN 65041069726 No Longer Active Liliana Estrada MD PhD Active TESSALON PERLES 100 MG ORAL CAPSULE 1 tablet by mouth 3 times da cory BENZONATATE 68601215223 No Longer Active Liliana Estrada MD PhD Active FLAGYL 500 MG ORAL TABLET 1 tablet by mouth two times daily 2014 METRONIDAZOLE 68945645611 No Longer Active Nilam Doran tive ZITHROMAX 250 MG ORAL TABLET 2 po today, then 1 po q days 2-5 20 06/08/16 AZITHROMYCIN 55670470749 No Longer Active Arie Casper MD Active VITAMINS 0.8 MG ORAL TABLET take 1 tab po qday [id number] 12007370380 No Longer Active Arie Casper MD Active IBUPROFEN 800 MG ORAL TABLET take one po Q 8 hours 201 02/01/16 IBUPROFEN 51375172717 No Longer Active Arie Casper MD Acti ve [facility] TUSSIN COUGH/COLD CF 5-10-100 MG/5ML ORAL LIQUID 2 teasp oons every 4 hours [id number] 95564814977 No Longer Active Blaine Casper MD Active COMTREX COLD/COUGH DAY/NITE MS 5-2-10-325 MG ORAL 2 caps deja ry 4 hours [id number] 18121366040 No Longer Active Da aleksandra Casper MD Active CHLORASEPTIC MAX SORE THROAT 15-10 MG MOUTH/THROAT LOZENGE 1 every 2 hours prn BENZOCAINE-MENTHOL 94534526013 No Longer Active Arie Casper MD Active PREDNISONE 20 MG ORAL TABLET 2 tabs daily for 3 days, 1 tab daily for 3 days, 1/2 tab daily for 2 days PREDNISONE 37310142315 No Longer Active Jose Zhong MD Active AZITHROMYCIN 250 MG ORAL TABLET 2 po qd x 1 day, then 1 po q d x 4 days AZITHROMYCIN 75387770122 No Longer Active Jose Mcwilliams MD Active ZOFRAN ODT 4 MG ORAL TABLET DISINTEGRATING 1 po q6hr PRN Nausea ONDANSETRON 84204275320 No Longer Active Rich Rosales MD Active ZOFRAN 4 MG ORAL TABLET 1 tablet every 4 hours ONDANSETRON HCL 55160582750 No Longer Active Rich Rosales MD Activ e MUCINEX 600 MG ORAL TABLET EXTENDED RELEASE 12 HOUR Ta ke 1-2 tablets every 12 hours GUAIFENESIN 63383007213 No Longer Active Rich Rosales MD Active BACTRIM 400-80 MG ORAL TABLET take one po BID SULFAMETHOXAZOLE-TRIMETHOPRIM 16137453796 No Longer Active Abelardo HERNANDEZ Active AZITHROMYCIN 500 MG ORAL TABLET 1 PO q day x 6 days 20 03/02/23 AZITHROMYCIN 44410925375 No Longer Active Tin HERNANDEZ Activ e ZITHROMAX 250 MG ORAL TABLET 2 po today, then 1 po q days 2-5 20 10/03/08 AZITHROMYCIN 79172803179 No Longer Active Arie Casper MD Active ZITHROMAX 250 MG ORAL TABLET 2 po today, then 1 po q days 2-5 09/23/25 AZITHROMYCIN 34436474130 No Longer Active Arie Casper MD Active AMOXICILLIN 500 MG ORAL CAPSULE 1 tab by mouth 3 times daily 201 11/24/09 AMOXICILLIN 59772254593 No Longer Active Arie Casper MD Active BACTRIM DS 800-160 MG ORAL TABLET 1 tab by mouth twice daily 201 11/03/14 TRIMETHOPRIM-SULFAMETHOXAZOLE 31440548566 No Longer Active Fozia Casper MD Active AMOXICILLIN 500 MG ORAL TABLET take 1 tab po TID 08/05 AMOXICILLIN 56224255202 No Longer Active Arie Casper MD Acti ve BACTRIM DS 800-160 MG ORAL TABLET 1 tab by mouth twice daily 201 11/03/14 BACTRIM DS 800-160 MG ORAL TABLET 363864 TRIMETHOPRIM-SULFAMETHOXAZOLE Inactive MUCINEX 600 MG ORAL TABLET EXTENDED RELEASE 12 HOUR Ta ke 1-2 tablets every 12 hours MUCINEX 600 MG ORAL TABLET EXTENDED RELEA SE 12 HOUR GUAIFENESIN Inactive ZOFRAN 4 MG ORAL TABLET 1 tablet every 4 hours ZOFRAN 4 MG ORAL TABLET 413751 ONDANSETRON HCL Inactive ZOFRAN ODT 4 MG ORAL TABLET DISINTEGRATING 1 po q6hr PRN Nausea ZOFRAN ODT 4 MG ORAL TABLET DISINTEGRATING 451071 ONDAN SETRON Inactive CHLORASEPTIC MAX SORE THROAT 15-10 MG MOUTH/THROAT LOZENGE 1 every 2 hours prn CHLORASEPTIC MAX SORE THROAT 15-10 MG MOUTH/THROAT LOZENGE BENZOCAINE-MENTHOL Inactive COMTREX COLD/COUGH DAY/NITE MS 5-2-10-325 MG ORAL 2 caps deja ry 4 hours COMTREX COLD/COUGH DAY/NITE MS 5-2-10-325 MG ORA L [id number] Inactive [facility] TUSSIN COUGH/COLD CF 5-10-100 MG/5ML ORAL LIQUID 2 teasp oons every 4 hours [facility] TUSSIN COUGH/COLD CF 5-10-100 MG/5ML ORAL LI QUID [id number] Inactive IBUPROFEN 800 MG ORAL TABLET take one po Q 8 hours 201 02/01/16 IBUPROFEN 800 MG ORAL TABLET 211218 IBUPROFEN Inactive VITAMINS 0.8 MG ORAL TABLET take 1 tab po qday VITAMINS 0.8 MG ORAL TABLET [id number] E-FA Inactive TESSALON PERLES 100 MG ORAL CAPSULE 1 tablet by mouth 3 times da cory TESSALON PERLES 100 MG ORAL CAPSULE 062461 BENZONATATE Inactive AMOXICILLIN 500 MG ORAL CAPSULE 1 tab by mouth 3 times daily 201 02/21/05 AMOXICILLIN 500 MG ORAL CAPSULE 953896 AMOXICILLIN Inactive GUAIFENESIN-CODEINE 100-10 MG/5ML ORAL SYRUP 2 tsp every 6 hours prn GUAIFENESIN-CODEINE 100-10 MG/5ML ORAL SYRUP 820042 GUAIFENESIN-CODEINE Inactive VICKS DAYQUIL SEVERE COLD/FLU TABLET 1 tab every 6 hours prn 201 02/22/17 VICKS DAYQUIL SEVERE COLD/FLU TABLET PHENYLEPHRI [id number]-APAP TABS Inactive BACTRIM DS 800-160 MG ORAL TABLET 1 twice a day 05/30 BACTRIM DS 800-160 MG ORAL TABLET 091926 SULFAMETHOXAZOLE-TRIMETHOPRIM Inactiv e PROMETHAZINE HCL 25 MG ORAL TABLET 1 four times a day as nee ded for vomiting PROMETHAZINE HCL 25 MG ORAL TABLET 444364 PROMETHAZINE HCL Inactive ZYRTEC ALLERGY 10 MG ORAL CAPSULE 1 po qd ZYRTEC ALLERGY 10 MG ORAL CAPSULE CETIRIZINE HCL Inactive MACROBID 100 MG ORAL CAPSULE 1 cap by mouth twice daily MACROBID 100 MG ORAL CAPSULE 2997610 NITROFURANTOIN MONOHYD MACRO In active LOMOTIL 2.5-0.025 MG ORAL TABLET 1 to 2 four times a day as needed for diarrhea LOMOTIL 2.5-0.025 MG ORAL TABLET 7312377 DIPHENOXYLATE-ATROPINE Inactive CYCLOBENZAPRINE HCL 10 MG ORAL TABLET 1/2 - 1 tablet b y mouth three times daily as needed for muscle spasm/pain CYCLOBEN ZAPRINE HCL 10 MG ORAL TABLET 287680 CYCLOBENZAPRINE HCL Inactive AMOXICILLIN 500 MG ORAL TABLET 2 tabs twice a day for 10 days 20 07/09/11 AMOXICILLIN 500 MG ORAL TABLET 616350 AMOXICILLIN I nactive LOMOTIL 2.5-0.025 MG ORAL TABLET 1 to 2 four times a day as needed for diarrhea LOMOTIL 2.5-0.025 MG ORAL TABLET 9284777 DIPHENOXYLATE-ATROPINE Inactive ZOFRAN 4 MG ORAL TABLET 1 TAB PO Q 6 HRS PRN NAUSEA 07/10/15 ZOFRAN 4 MG ORAL TABLET 526453 ONDANSETRON HCL Inactive CITRATE OF MAGNESIA ORAL SOLUTION 1 bottle today for constipatio n CITRATE OF MAGNESIA ORAL SOLUTION 9175831 MAGNESIUM CITR ATE Inactive PROMETHAZINE HCL 12.5 MG ORAL TABLET 1 tablet by mouth every 6 hours as needed for nausea/vomiting PROMETHAZINE HCL 12.5 MG ORA L TABLET 217370 PROMETHAZINE HCL Inactive PREDNISONE 20 MG ORAL TABLET 1 tablet twice daily for 2 days, then 1 tablet once daily for 2 days PREDNISONE 20 MG ORAL TABLET 299557 PREDNISONE Inactive ALPRAZOLAM 0.25 MG ORAL TABLET 1 tablet by mouth every 8 hours as needed for stress ALPRAZOLAM 0.25 MG ORAL TABLET 090601 ALPRA ZOLAM Inactive FLONASE 50 MCG/ACT NASAL SUSPENSION 1 spray each nostr il twice daily for allergies and runny nose until gone FLON ASE 50 MCG/ACT NASAL SUSPENSION 6174938 FLUTICASONE PROPIONATE Inactive PREDNISONE 20 MG ORAL TABLET 1 tablet daily for airway inflammat ion PREDNISONE 20 MG ORAL TABLET 570923 PREDNISONE Arlen ctive NAPROXEN 500 MG ORAL TABLET Take 1 tab BID NAPROXEN 500 MG ORAL TABLET 410216 NAPROXEN Inactive ZOLOFT 50 MG ORAL TABLET 1 tablet by mouth daily 12/08 ZOLOFT 50 MG ORAL TABLET 135723 SERTRALINE HCL Inactive LOMOTIL 2.5-0.025 MG ORAL TABLET 1 tab po four times a day as needed for diarrhea LOMOTIL 2.5-0.025 MG ORAL TABLET 7176269 DIPHENOXYLATE-ATROPINE Inactive CETIRIZINE HCL 10 MG ORAL TABLET 1 po qd PRN Allergies CETIRIZINE HCL 10 MG ORAL TABLET 5833115 CETIRIZINE HCL Inactiv e TUSSIONEX PENNKINETIC ER 10-8 MG/5ML ORAL SUSPENSION E XTENDED RELEASE 5ml po q12hr PRN Cough TUSSIONEX PENNKINETI C ER 10-8 MG/5ML ORAL SUSPENSION EXTENDED RELEASE HYDROCOD POLST-CHLORPHEN POLST I nactive NEXPLANON IMPLANT right arm subcutaneously NEXPLANON IMPLANT ETONOGESTREL IMPL Inactive PROTONIX 40 MG ORAL TABLET DELAYED RELEASE 1 po q a.m. PROTONIX 40 MG ORAL TABLET DELAYED RELEASE 876382 PANTOPRAZOLE SODI UM Inactive CHERATUSSIN AC 100-10 MG/5ML ORAL SYRUP 1 tsp by mouth every 4 hours as needed for cough CHERATUSSIN AC 100-10 MG/5ML ORAL SYRUP 9 50538 GUAIFENESIN-CODEINE Inactive GUAIFENESIN DM 400-20 MG ORAL TABLET 1 pill by mouth t wice daily, if needed for cough GUAIFENESIN DM 400-20 MG ORAL TABLET 1143 68 DEXTROMETHORPHAN-GUAIFENESIN Inactive TUSSIONEX PENNKINETIC ER 10-8 MG/5ML ORAL SUSPENSION E XTENDED RELEASE 5ml po q12hr PRN Cough TUSSIONEX PENNKINETI C ER 10-8 MG/5ML ORAL SUSPENSION EXTENDED RELEASE HYDROCOD POLST-CHLORPHEN POLST I nactive AMOXICILLIN 500 MG ORAL TABLET take 1 tab po TID 08/05 AMOXICILLIN 500 MG ORAL TABLET 007902 AMOXICILLIN Inactive AMOXICILLIN 500 MG ORAL CAPSULE 1 tab by mouth 3 times daily 201 11/24/09 AMOXICILLIN 500 MG ORAL CAPSULE 279451 AMOXICILLIN Inactive ZITHROMAX 250 MG ORAL TABLET 2 po today, then 1 po q days 2-5 20 09/23/25 ZITHROMAX 250 MG ORAL TABLET 925322 AZITHROMYCIN Arlen ctive ZITHROMAX 250 MG ORAL TABLET 2 po today, then 1 po q days 2-5 20 10/03/08 ZITHROMAX 250 MG ORAL TABLET 535534 AZITHROMYCIN [place] ctive AZITHROMYCIN 500 MG ORAL TABLET 1 PO q day x 6 days 20 03/02/23 AZITHROMYCIN 500 MG ORAL TABLET 4394103 AZITHROMYCIN Inactive BACTRIM 400-80 MG ORAL TABLET take one po BID BACTRIM 400- 80 MG ORAL TABLET 758875 SULFAMETHOXAZOLE-TRIMETHOPRIM Inactive AZITHROMYCIN 250 MG ORAL TABLET 2 po qd x 1 day, then 1 po q d x 4 days AZITHROMYCIN 250 MG ORAL TABLET 607111 AZITHROMY ALLISON Inactive PREDNISONE 20 MG ORAL TABLET 2 tabs daily for 3 days, 1 tab daily for 3 days, 1/2 tab daily for 2 days PREDNISONE 20 MG ORAL T ABLET 811959 PREDNISONE Inactive ZITHROMAX 250 MG ORAL TABLET 2 po today, then 1 po q days 2-5 20 06/08/16 ZITHROMAX 250 MG ORAL TABLET 150620 AZITHROMYCIN Arlen ctive FLAGYL 500 MG ORAL TABLET 1 tablet by mouth two times daily 2014 FLAGYL 500 MG ORAL TABLET 898319 METRONIDAZOLE Inacti ve AUGMENTIN 875-125 MG ORAL TABLET 1 tab by mouth twice daily with food AUGMENTIN 875-125 MG ORAL TABLET 989197 AMOXICIL ELSA-POT CLAVULANATE Inactive NAPROXEN 500 MG ORAL TABLET one tab PO BID NAPROXEN 500 MG ORAL TABLET 147530 NAPROXEN Inactive PREDNISONE 20 MG ORAL TABLET 2 tabs daily for 3 days, 1 tab daily for 3 days, 1/2 tab daily for 2 days PREDNISONE 20 MG ORAL T ABLET 962380 PREDNISONE Inactive AZITHROMYCIN 250 MG ORAL TABLET 2 po qd x 1 day, then 1 po q d x 4 days AZITHROMYCIN 250 MG ORAL TABLET 593705 AZITHROMY ALLISON Inactive PREDNISONE 20 MG ORAL TABLET 2 tabs daily for 3 days, 1 tab daily for 3 days, 1/2 tab daily for 2 days PREDNISONE 20 MG ORAL T ABLET 877178 PREDNISONE Inactive ZITHROMAX Z-EMIL 250 MG ORAL TABLET 2 today, then 1 daily for 4 d ays ZITHROMAX Z-EMIL 250 MG ORAL TABLET 006160 AZITHROMYCIN Inactive CEFDINIR 300 MG ORAL CAPSULE 1 po BID x 10 days 12/18 CEFDINIR 300 MG ORAL CAPSULE 036581 CEFDINIR Inactive CEFDINIR 300 MG ORAL CAPSULE 1 po BID x 10 days CEFDINIR 300 MG ORAL CAPSULE 994921 CEFDINIR Inactive PREDNISONE 20 MG ORAL TABLET 2 tabs daily for 3 days, 1 tab daily for 3 days, 1/2 tab daily for 2 days PREDNISONE 20 MG ORAL T ABLET 132634 PREDNISONE Inactive BACTRIM DS 800-160 MG ORAL TABLET 1 tab by mouth twice daily 201 05/02/30 BACTRIM DS 800-160 MG ORAL TABLET 278087 TRIMETHOPRIM-SULFAMETHOXAZOLE Inactive ZITHROMAX Z-EMIL 250 MG ORAL TABLET 2 today, then 1 daily for 4 d ays ZITHROMAX Z-EMIL 250 MG ORAL TABLET 000946 AZITHROMYCIN Inactive TAMIFLU 75 MG ORAL CAPSULE 1 po BID x 5 days 0 TAMIFLU 75 MG ORAL CAPSULE 107568 OSELTAMIVIR PHOSPHATE Inactive CEFDINIR 300 MG ORAL CAPSULE 1 po BID x 10 days 01/03 CEFDINIR 300 MG ORAL CAPSULE 505872 CEFDINIR Inactive ZITHROMAX Z-EMIL 250 MG TABS Take two tablets today and then 1 tablet daily for 4 days ZITHROMAX Z-EMIL 250 MG TABS 495581 AZITHROM YCIN Inactive AMOXICILLIN 875 MG ORAL TABLET 1 tab by mouth twice daily AMOXICILLIN 875 MG ORAL TABLET 314474 AMOXICILLIN Inactive Advance Directives Directive Description Start [...] Value Unit Range Description blood pressure, diastolic 86 mm[Hg] BP kennedy [...] d blood pressure, diastolic 76 mm[Hg] BP kenneyd blood pressure, systolic 120 mm[Hg] BP sys [...] Negative Encounters Code Encounter Date Provider Facility CPT-51361 [id number] Vst-Est Level III 18:20:11 CDT Me lobito Russ APRN [facility] CPT-18699 [id number] Vst-Est Level III 17:21:41 CDT Me lobito Russ [facility]-05820 [id number] Vst-Est Level IV 13:30:22 C NIC Casper MD [facility] CPT-22177 Level 4 Est. Patient 13:05:26 CDT Myrna Real Bernabe maldonado MD [facility]-48001 [id number] Vst-Est Level IV 20:50:21 C DT Arie Casper MD [facility] CPT-34093 Level 3 Est. Patient 11:49:34 FAMILY MEMBER CARETAKER Jessica boyd [facility] CPT-77012 Level 3 Est. Patient 14:55:50 FAMILY MEMBER CARETAKER Jose Zhong MD [facility] CPT-82457 Level 3 Est. Patient 10:21:41 FAMILY MEMBER CARETAKER Arie mcqueen MD [facility] CPT-01970 Level 3 Est. Patient 11:35:15 FAMILY MEMBER CARETAKER Arie mcqueen MD [facility] CPT-12798 Level 3 Est. Patient 15:40:28 CDT Brii Are [facility] CPT-11149 Level 3 Est. Patient 16:40:36 CDT Arie mcqueen MD [facility] CPT-91778 Level 4 Est. Patient 15:29:22 FAMILY MEMBER CARETAKER Arie mcqueen MD [facility] CPT-60649 Level 3 Est. Patient 15:18:16 FAMILY MEMBER CARETAKER Jono black DO [facility] CPT-51181 Level 4 Est. Patient 12:08:40 FAMILY MEMBER CARETAKER Brii Are [facility] CPT-21955 Level 3 Est. Patient 09:24:42 CDT Brii Are [facility] CPT-44940 Level 3 Est. Patient 09:12:56 CDT Arie mcqueen MD [facility] CPT-65551 Level 3 Est. Patient 16:40:54 CDT Jose Zhong MD [facility] CPT-99253 Level 2 Est. 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 Patient 11:55:30 FAMILY MEMBER CARETAKER Jono black DO [facility] CPT-10640 Level 3 Est. Patient 09:52:36 FAMILY MEMBER CARETAKER Brii escalante [facility] CPT-41392 Level 3 Est. Patient 16:25:33 FAMILY MEMBER CARETAKER Rich Rosales MD [facility] CPT-84563 Level 3 Est. Patient 20:33:55 CDT Aire mcqueen MD [facility] CPT-89775 Level 3 Est. Patient 14:18:20 CDT Rich Rosales MD [facility] CPT-92268 Level 4 Est. Patient 09:34:31 CDT Arie mcqueen MD [facility] CPT-96165 Level 3 Est. Patient 09:08:55 FAMILY MEMBER CARETAKER Liliana vincent MD PhD [facility] CPT-22217 Level 3 Est. Patient 16:44:07 FAMILY MEMBER CARETAKER Arie mcqueen MD [facility] CPT-89815 Level 3 Est. Patient 10:44:27 CDT Arie mcqueen MD [facility] CPT-37278 Level 3 Est. Patient 08:55:41 CDT Jose Zhong MD [facility] CPT-56268 Level 3 Est. Patient 18:37:31 CDT Liliana vincent MD PhD [facility] CPT-73778 Level 3 Est. Patient 14:28:23 CDT Abelardo HERNANDEZ [facility] CPT-17839 Level 3 Est. Patient 15:18:13 FAMILY MEMBER CARETAKER Arie mcqueen MD [facility] CPT-83641 Level 3 Est. Patient 10:11:29 FAMILY MEMBER CARETAKER Arie mcqueen MD [facility] CPT-06035 Level 3 Est. Patient 10:55:57 FAMILY MEMBER CARETAKER Jono black DO [facility] CPT-08693 Level 3 Est. Patient 17:29:05 CDT Arie mcqueen MD [facility] Procedures Code Procedure Name Date Entry Date Standard Desc ription CPT-97379 Ear Wash with irrigation 17:21:41 CDT 07/04 CPT-47086 Nexplanon Removal 15:40:28 CDT CPT-60960 Sono transvag pelvis non OB uterus ovari es cervix - XRAY USE ONLY 08:58:14 FAMILY MEMBER CARETAKER CPT-51175 UA w micro - LAB USE ONLY 16:04:56 FAMILY MEMBER CARETAKER 2015 CPT-97505 Wet Prep/GEN - LAB USE ONLY 16:04:56 [employer] 20 08/10/29 CPT-25273 First Vx - Ix admin via ID I M or jet injects without counseling by physician 16:57:10 CDT CPT-88757 Fluzone Preservative Free Intramuscular Suspension 16:57:10 CDT CPT-J0696 Rocephin 1000 mg (Ceftriaxone) 11:49:23 CDT CPT-J1040 Depo Medrol 80 mg (Methyl Prednisolone A cetate) 11:49:23 CDT CPT-J1100 Decadron 8mg (Dexamethasone) 11:49:23 CDT 2 CPT-67842 Abx/Therapy Injection 11:49:23 CDT CPT-42705 Abx/Therapy Injection 11:49:23 CDT CPT-46175 Abd compl w upright 09:07:26 [employer] CPT-29698 Ear Wash 16:12:47 [employer] CPT-OV Office Visit 11:12:01 CDT CPT-OV Office Visit 15:30:23 CDT CPT-07538 Sono pelvis non OB uterus ovaries cervix 15:50:44 CDT CPT-32814 Hand comp min 3V 16:42:32 CDT CPT-57519 Abd compl w upright 12:17:01 CDT CPT-51857 Nexplanon Placement 15:07:39 [employer] CPT-08975 Removal of IUD 15:07:39 [employer] CPT-13946 TB Tubersol 12:09:32 CDT CPT-81459 TB Tubersol 13:55:43 CDT
--- OUTSIDE RECORDS SUMMARY | 2020-03-03 07:56 | XMS REPORT | Clinical Summary ---
[...] with depression 300.4 Active Brii Ramirez l [employer] Dysthymic disorder URI 465.9 Active Jono Gagnon [...] lymph node 785.6 Active Brii Are ll [employer] Enlargement of lymph nodes FH BREAST CANCER [...] MG ORAL CAPSULE 1 po tid CEPHALEXIN 327521 40043 Active Brii Russ APRN Active PROTONIX 40 MG ORAL TABLET DELAYED RELEASE 1 pill by m outh daily, for acid reflux PANTOPRAZOLE SODIUM 13107902231 Active Roseann Ty Active AMOXICILLIN 875 MG ORAL TABLET 1 tab by mouth twice daily 1 AMOXICILLIN 18782683734 No Longer Active Brii Russ APRN Active ALPRAZOLAM 0.25 MG ORAL TABLET 1 tablet by mouth twice a day as needed for stress/anxiety ALPRAZOLAM 39141685635 Active KELLIE Escobar Active ESCITALOPRAM OXALATE 10 MG ORAL TABLET take 1 tab po qhs for mod 20 10/04/18 ESCITALOPRAM OXALATE 63041174353 Active Arie Casper MD Active TUSSIONEX PENNKINETIC ER 10-8 MG/5ML ORAL SUSPENSION E XTENDED RELEASE 5ml po q12hr PRN Cough HYDROCOD POLST-CHLORPHEN POLST 5 7443832224 No Longer Active Myrna Roberto MD Active ZITHROMAX Z-EMIL 250 MG TABS Take two tablets today and then 1 tablet daily for 4 days AZITHROMYCIN 92536568926 No Longer Active Flaco Rosales MD Active GUAIFENESIN DM 400-20 MG ORAL TABLET 1 pill by mouth t wice daily, if needed for cough DEXTROMETHORPHAN-GUAIFENESIN 50468509174 No Longer Active Rich Rosales MD Active CEFDINIR 300 MG ORAL CAPSULE 1 po BID x 10 days CEFDINIR 23572247318 No Longer Active Jessica Heaton APRN Active CHERATUSSIN AC 100-10 MG/5ML ORAL SYRUP 1 tsp by mouth every 4 hours as needed for cough GUAIFENESIN-CODEINE 93961308281 No Longe r Active Jessica Heaton APRN Active TAMIFLU 75 MG ORAL CAPSULE 1 po BID x 5 days 0 OSELTAMIVIR PHOSPHATE 35165522544 No Longer Active Jose Zhong MD Activ e ZITHROMAX Z-EMIL 250 MG ORAL TABLET 2 today, then 1 daily for 4 d ays AZITHROMYCIN 13467790396 No Longer Active Arie Casper MD Active PROTONIX 40 MG ORAL TABLET DELAYED RELEASE 1 po q a.m. PANTOPRAZOLE SODIUM 06696329784 No Longer Active Arie Casper MD Active BACTRIM DS 800-160 MG ORAL TABLET 1 tab by mouth twice daily 201 05/02/30 TRIMETHOPRIM-SULFAMETHOXAZOLE 37987520545 No Longer Active R [facility] Active NEXPLANON IMPLANT right arm subcutaneously ETONOGESTREL IMPL 50976184404 No Longer Active Brii Arell [employer] Active TUSSIONEX PENNKINETIC ER 10-8 MG/5ML ORAL SUSPENSION E XTENDED RELEASE 5ml po q12hr PRN Cough HYDROCOD POLST-CHLORPHEN POLST 5 5148601939 No Longer Active Brii Arell [employer] Active CETIRIZINE HCL 10 MG ORAL TABLET 1 po qd PRN Allergies CETIRIZINE HCL 00017647959 No Longer Active Brii Arell [employer] Activ e PREDNISONE 20 MG ORAL TABLET 2 tabs daily for 3 days, 1 tab daily for 3 days, 1/2 tab daily for 2 days PREDNISONE 89924690868 No Longer Active Arie Casper MD Active LOMOTIL 2.5-0.025 MG ORAL TABLET 1 tab po four times a day as needed for diarrhea DIPHENOXYLATE-ATROPINE 21575297638 No Lo nger Active Arie Casper MD Active ZOLOFT 50 MG ORAL TABLET 1 tablet by mouth daily 12/08 SERTRALINE HCL 88018335570 No Longer Active Arie Casper MD Ac tive NAPROXEN 500 MG ORAL TABLET Take 1 tab BID NAPR OXEN 68774962327 No Longer Active Arie Casper MD Active CEFDINIR 300 MG ORAL CAPSULE 1 po BID x 10 days CEFDINIR 16847117390 No Longer Active Brii Arell [employer] Active PREDNISONE 20 MG ORAL TABLET 1 tablet daily for airway inflammat ion PREDNISONE 73679866583 No Longer Active Brii Arell [employer] A ctive CEFDINIR 300 MG ORAL CAPSULE 1 po BID x 10 days CEFDINIR 32719851046 No Longer Active Jono Gagnon DO Active FLONASE 50 MCG/ACT NASAL SUSPENSION 1 spray each nostr il twice daily for allergies and runny nose until gone FLUT ICASONE PROPIONATE 14073596437 No Longer Active Jono Gagnon DO Active ALPRAZOLAM 0.25 MG ORAL TABLET 1 tablet by mouth every 8 hours as needed for stress ALPRAZOLAM 50724747879 No Longer Active Jono Gagnon DO Active ZITHROMAX Z-EMIL 250 MG ORAL TABLET 2 today, then 1 daily for 4 d ays AZITHROMYCIN 40579774070 No Longer Active Arie Casper MD Active PREDNISONE 20 MG ORAL TABLET 2 tabs daily for 3 days, 1 tab daily for 3 days, 1/2 tab daily for 2 days PREDNISONE 99396164076 No Longer Active Brii Arell [employer] Active PREDNISONE 20 MG ORAL TABLET 1 tablet twice daily for 2 days, then 1 tablet once daily for 2 days PREDNISONE 04159675440 No Longer Active Brii Arell [employer] Active PROMETHAZINE HCL 12.5 MG ORAL TABLET 1 tablet by mouth every 6 hours as needed for nausea/vomiting PROMETHAZINE HCL 16243220704 No L onger Active Jono Gagnon DO Active CITRATE OF MAGNESIA ORAL SOLUTION 1 bottle today for constipatio n MAGNESIUM CITRATE 02156033847 No Longer Active Jono Gagnon DO Active ZOFRAN 4 MG ORAL TABLET 1 TAB PO Q 6 HRS PRN NAUSEA 07/10/15 ONDANSETRON HCL 40015418836 No Longer Active Brii Russ APRN Acti ve LOMOTIL 2.5-0.025 MG ORAL TABLET 1 to 2 four times a day as needed for diarrhea DIPHENOXYLATE-ATROPINE 81926729672 No Longer Active January Russ APRN Active AMOXICILLIN 500 MG ORAL TABLET 2 tabs twice a day for 10 days 07/09/11 AMOXICILLIN 76730972868 No Longer Active Brii Russ APRN Active CYCLOBENZAPRINE HCL 10 MG ORAL TABLET 1/2 - 1 tablet b y mouth three times daily as needed for muscle spasm/pain CYCLOBENZAPRINE HCL 19295863636 No Longer Active Arie Casper MD Active LOMOTIL 2.5-0.025 MG ORAL TABLET 1 to 2 four times a day as needed for diarrhea DIPHENOXYLATE-ATROPINE 54083273458 No Longer Active Fozia Casper MD Active MACROBID 100 MG ORAL CAPSULE 1 cap by mouth twice daily NITROFURANTOIN MONOHYD MACRO 21154176202 No Longer Active Arie Casper MD Active ZYRTEC ALLERGY 10 MG ORAL CAPSULE 1 po qd CE TIRIZINE HCL 51781011743 No Longer Active Arie Casper MD Active AZITHROMYCIN 250 MG ORAL TABLET 2 po qd x 1 day, then 1 po q d x 4 days AZITHROMYCIN 96474306041 No Longer Active Jessica salgado APRN Active PREDNISONE 20 MG ORAL TABLET 2 tabs daily for 3 days, 1 tab daily for 3 days, 1/2 tab daily for 2 days PREDNISONE 05669105841 No Longer Active Jessica Heaton APRN Active PROMETHAZINE HCL 25 MG ORAL TABLET 1 four times a day as nee ded for vomiting PROMETHAZINE HCL 10262293539 No Longer Active Myrna Roberto MD Active BACTRIM DS 800-160 MG ORAL TABLET 1 twice a day 05/30 SULFAMETHOXAZOLE-TRIMETHOPRIM 07988107241 No Longer Active Myrna Roberto MD Active VICKS DAYQUIL SEVERE COLD/FLU TABLET 1 tab every 6 hours prn 201 02/22/17 [id number]-IN-CH-APAP TABS 69119661046 No Longer Active Chris Roberto MD Active GUAIFENESIN-CODEINE 100-10 MG/5ML ORAL SYRUP 2 tsp every 6 hours prn GUAIFENESIN-CODEINE 53904805216 No Longer Active Myrna Roberto MD Active NAPROXEN 500 MG ORAL TABLET one tab PO BID NAPR OXEN 07284618878 No Longer Active Myrna Roberto MD Active AUGMENTIN 875-125 MG ORAL TABLET 1 tab by mouth twice daily with food AMOXICILLIN-POT CLAVULANATE 88242510621 No Longer Act zaid Liliana Estrada MD PhD Active AMOXICILLIN 500 MG ORAL CAPSULE 1 tab by mouth 3 times daily 201 02/21/05 AMOXICILLIN 88385025429 No Longer Active Liliana Estrada MD PhD Active TESSALON PERLES 100 MG ORAL CAPSULE 1 tablet by mouth 3 times da cory BENZONATATE 23627121571 No Longer Active Liliana Estrada MD PhD Active FLAGYL 500 MG ORAL TABLET 1 tablet by mouth two times daily 2014 METRONIDAZOLE 95168279585 No Longer Active Nilam Doran tive ZITHROMAX 250 MG ORAL TABLET 2 po today, then 1 po q days 2-5 20 06/08/16 AZITHROMYCIN 42074709766 No Longer Active Arie Casper MD Active VITAMINS 0.8 MG ORAL TABLET take 1 tab po qday [id number] 18816461681 No Longer Active Arie Casper MD Active IBUPROFEN 800 MG ORAL TABLET take one po Q 8 hours 201 02/01/16 IBUPROFEN 78562298707 No Longer Active Arie Casper MD Acti ve [facility] TUSSIN COUGH/COLD CF 5-10-100 MG/5ML ORAL LIQUID 2 teasp oons every 4 hours [id number] 47718195683 No Longer Active Blaine Casper MD Active COMTREX COLD/COUGH DAY/NITE MS 5-2-10-325 MG ORAL 2 caps deja ry 4 hours [id number] 86729451888 No Longer Active Da aleksandra Casper MD Active CHLORASEPTIC MAX SORE THROAT 15-10 MG MOUTH/THROAT LOZENGE 1 every 2 hours prn BENZOCAINE-MENTHOL 22596827330 No Longer Active Arie Casper MD Active PREDNISONE 20 MG ORAL TABLET 2 tabs daily for 3 days, 1 tab daily for 3 days, 1/2 tab daily for 2 days PREDNISONE 09975328739 No Longer Active Jose Zhong MD Active AZITHROMYCIN 250 MG ORAL TABLET 2 po qd x 1 day, then 1 po q d x 4 days AZITHROMYCIN 78603242918 No Longer Active Jose Mcwilliams MD Active ZOFRAN ODT 4 MG ORAL TABLET DISINTEGRATING 1 po q6hr PRN Nausea ONDANSETRON 58152656672 No Longer Active Rich Rosales MD Active ZOFRAN 4 MG ORAL TABLET 1 tablet every 4 hours ONDANSETRON HCL 03421522527 No Longer Active Rich Rosales MD Activ e MUCINEX 600 MG ORAL TABLET EXTENDED RELEASE 12 HOUR Ta ke 1-2 tablets every 12 hours GUAIFENESIN 78981560247 No Longer Active Rich Rosales MD Active BACTRIM 400-80 MG ORAL TABLET take one po BID SULFAMETHOXAZOLE-TRIMETHOPRIM 18207452123 No Longer Active Abelardo HERNANDEZ Active AZITHROMYCIN 500 MG ORAL TABLET 1 PO q day x 6 days 20 03/02/23 AZITHROMYCIN 47002525446 No Longer Active Tin HERNANDEZ Activ e ZITHROMAX 250 MG ORAL TABLET 2 po today, then 1 po q days 2-5 20 10/03/08 AZITHROMYCIN 84816261931 No Longer Active Arie Casper MD Active ZITHROMAX 250 MG ORAL TABLET 2 po today, then 1 po q days 2-5 09/23/25 AZITHROMYCIN 17510058876 No Longer Active Arie Casper MD Active AMOXICILLIN 500 MG ORAL CAPSULE 1 tab by mouth 3 times daily 201 11/24/09 AMOXICILLIN 01151151167 No Longer Active Arie Casper MD Active BACTRIM DS 800-160 MG ORAL TABLET 1 tab by mouth twice daily 201 11/03/14 TRIMETHOPRIM-SULFAMETHOXAZOLE 86293798657 No Longer Active Fozia Casper MD Active AMOXICILLIN 500 MG ORAL TABLET take 1 tab po TID 08/05 AMOXICILLIN 92497322584 No Longer Active Arie Casper MD Acti ve BACTRIM DS 800-160 MG ORAL TABLET 1 tab by mouth twice daily 201 11/03/14 BACTRIM DS 800-160 MG ORAL TABLET 183971 TRIMETHOPRIM-SULFAMETHOXAZOLE Inactive MUCINEX 600 MG ORAL TABLET EXTENDED RELEASE 12 HOUR Ta ke 1-2 tablets every 12 hours MUCINEX 600 MG ORAL TABLET EXTENDED RELEA SE 12 HOUR GUAIFENESIN Inactive ZOFRAN 4 MG ORAL TABLET 1 tablet every 4 hours ZOFRAN 4 MG ORAL TABLET 705854 ONDANSETRON HCL Inactive ZOFRAN ODT 4 MG ORAL TABLET DISINTEGRATING 1 po q6hr PRN Nausea ZOFRAN ODT 4 MG ORAL TABLET DISINTEGRATING 624257 ONDAN SETRON Inactive CHLORASEPTIC MAX SORE THROAT 15-10 MG MOUTH/THROAT LOZENGE 1 every 2 hours prn CHLORASEPTIC MAX SORE THROAT 15-10 MG MOUTH/THROAT LOZENGE BENZOCAINE-MENTHOL Inactive COMTREX COLD/COUGH DAY/NITE MS 5-2-10-325 MG ORAL 2 caps deja ry 4 hours COMTREX COLD/COUGH DAY/NITE MS 5-2-10-325 MG ORA L [id number] Inactive [facility] TUSSIN COUGH/COLD CF 5-10-100 MG/5ML ORAL LIQUID 2 teasp oons every 4 hours [facility] TUSSIN COUGH/COLD CF 5-10-100 MG/5ML ORAL LI QUID [id number] Inactive IBUPROFEN 800 MG ORAL TABLET take one po Q 8 hours 201 02/01/16 IBUPROFEN 800 MG ORAL TABLET 605749 IBUPROFEN Inactive VITAMINS 0.8 MG ORAL TABLET take 1 tab po qday VITAMINS 0.8 MG ORAL TABLET [id number] E-FA Inactive TESSALON PERLES 100 MG ORAL CAPSULE 1 tablet by mouth 3 times da cory TESSALON PERLES 100 MG ORAL CAPSULE 094332 BENZONATATE Inactive AMOXICILLIN 500 MG ORAL CAPSULE 1 tab by mouth 3 times daily 201 02/21/05 AMOXICILLIN 500 MG ORAL CAPSULE 405666 AMOXICILLIN Inactive GUAIFENESIN-CODEINE 100-10 MG/5ML ORAL SYRUP 2 tsp every 6 hours prn GUAIFENESIN-CODEINE 100-10 MG/5ML ORAL SYRUP 622647 GUAIFENESIN-CODEINE Inactive VICKS DAYQUIL SEVERE COLD/FLU TABLET 1 tab every 6 hours prn 201 02/22/17 VICKS DAYQUIL SEVERE COLD/FLU TABLET PHENYLEPHRI [id number]-OS-EH-APAP TABS Inactive BACTRIM DS 800-160 MG ORAL TABLET 1 twice a day 05/30 BACTRIM DS 800-160 MG ORAL TABLET 083451 SULFAMETHOXAZOLE-TRIMETHOPRIM Inactiv e PROMETHAZINE HCL 25 MG ORAL TABLET 1 four times a day as nee ded for vomiting PROMETHAZINE HCL 25 MG ORAL TABLET 397222 PROMETHAZINE HCL Inactive ZYRTEC ALLERGY 10 MG ORAL CAPSULE 1 po qd ZYRTEC ALLERGY 10 MG ORAL CAPSULE CETIRIZINE HCL Inactive MACROBID 100 MG ORAL CAPSULE 1 cap by mouth twice daily MACROBID 100 MG ORAL CAPSULE 2983212 NITROFURANTOIN MONOHYD MACRO In active LOMOTIL 2.5-0.025 MG ORAL TABLET 1 to 2 four times a day as needed for diarrhea LOMOTIL 2.5-0.025 MG ORAL TABLET 2119196 DIPHENOXYLATE-ATROPINE Inactive CYCLOBENZAPRINE HCL 10 MG ORAL TABLET 1/2 - 1 tablet b y mouth three times daily as needed for muscle spasm/pain CYCLOBEN ZAPRINE HCL 10 MG ORAL TABLET 364389 CYCLOBENZAPRINE HCL Inactive AMOXICILLIN 500 MG ORAL TABLET 2 tabs twice a day for 10 days 20 07/09/11 AMOXICILLIN 500 MG ORAL TABLET 119498 AMOXICILLIN I nactive LOMOTIL 2.5-0.025 MG ORAL TABLET 1 to 2 four times a day as needed for diarrhea LOMOTIL 2.5-0.025 MG ORAL TABLET 8961324 DIPHENOXYLATE-ATROPINE Inactive ZOFRAN 4 MG ORAL TABLET 1 TAB PO Q 6 HRS PRN NAUSEA 07/10/15 ZOFRAN 4 MG ORAL TABLET 367397 ONDANSETRON HCL Inactive CITRATE OF MAGNESIA ORAL SOLUTION 1 bottle today for constipatio n CITRATE OF MAGNESIA ORAL SOLUTION 7719585 MAGNESIUM CITR ATE Inactive PROMETHAZINE HCL 12.5 MG ORAL TABLET 1 tablet by mouth every 6 hours as needed for nausea/vomiting PROMETHAZINE HCL 12.5 MG ORA L TABLET 693732 PROMETHAZINE HCL Inactive PREDNISONE 20 MG ORAL TABLET 1 tablet twice daily for 2 days, then 1 tablet once daily for 2 days PREDNISONE 20 MG ORAL TABLET 741607 PREDNISONE Inactive ALPRAZOLAM 0.25 MG ORAL TABLET 1 tablet by mouth every 8 hours as needed for stress ALPRAZOLAM 0.25 MG ORAL TABLET 836053 ALPRA ZOLAM Inactive FLONASE 50 MCG/ACT NASAL SUSPENSION 1 spray each nostr il twice daily for allergies and runny nose until gone FLON ASE 50 MCG/ACT NASAL SUSPENSION 9418141 FLUTICASONE PROPIONATE Inactive PREDNISONE 20 MG ORAL TABLET 1 tablet daily for airway inflammat ion PREDNISONE 20 MG ORAL TABLET 310175 PREDNISONE Arlen ctive NAPROXEN 500 MG ORAL TABLET Take 1 tab BID NAPROXEN 500 MG ORAL TABLET 420069 NAPROXEN Inactive ZOLOFT 50 MG ORAL TABLET 1 tablet by mouth daily 12/08 ZOLOFT 50 MG ORAL TABLET 438954 SERTRALINE HCL Inactive LOMOTIL 2.5-0.025 MG ORAL TABLET 1 tab po four times a day as needed for diarrhea LOMOTIL 2.5-0.025 MG ORAL TABLET 9818695 DIPHENOXYLATE-ATROPINE Inactive CETIRIZINE HCL 10 MG ORAL TABLET 1 po qd PRN Allergies CETIRIZINE HCL 10 MG ORAL TABLET 0483363 CETIRIZINE HCL Inactiv e TUSSIONEX PENNKINETIC ER 10-8 MG/5ML ORAL SUSPENSION E XTENDED RELEASE 5ml po q12hr PRN Cough TUSSIONEX PENNKINETI C ER 10-8 MG/5ML ORAL SUSPENSION EXTENDED RELEASE HYDROCOD POLST-CHLORPHEN POLST I nactive NEXPLANON IMPLANT right arm subcutaneously NEXPLANON IMPLANT ETONOGESTREL IMPL Inactive PROTONIX 40 MG ORAL TABLET DELAYED RELEASE 1 po q a.m. PROTONIX 40 MG ORAL TABLET DELAYED RELEASE 000596 PANTOPRAZOLE SODI UM Inactive CHERATUSSIN AC 100-10 MG/5ML ORAL SYRUP 1 tsp by mouth every 4 hours as needed for cough CHERATUSSIN AC 100-10 MG/5ML ORAL SYRUP 9 30043 GUAIFENESIN-CODEINE Inactive GUAIFENESIN DM 400-20 MG ORAL TABLET 1 pill by mouth t wice daily, if needed for cough GUAIFENESIN DM 400-20 MG ORAL TABLET 1144 683 DEXTROMETHORPHAN-GUAIFENESIN Inactive TUSSIONEX PENNKINETIC ER 10-8 MG/5ML ORAL SUSPENSION E XTENDED RELEASE 5ml po q12hr PRN Cough TUSSIONEX PENNKINETI C ER 10-8 MG/5ML ORAL SUSPENSION EXTENDED RELEASE HYDROCOD POLST-CHLORPHEN POLST I nactive AMOXICILLIN 500 MG ORAL TABLET take 1 tab po TID 08/05 AMOXICILLIN 500 MG ORAL TABLET 862741 AMOXICILLIN Inactive AMOXICILLIN 500 MG ORAL CAPSULE 1 tab by mouth 3 times daily 201 11/24/09 AMOXICILLIN 500 MG ORAL CAPSULE 660460 AMOXICILLIN Inactive ZITHROMAX 250 MG ORAL TABLET 2 po today, then 1 po q days 2-5 20 09/23/25 ZITHROMAX 250 MG ORAL TABLET 920186 AZITHROMYCIN Arlen ctive ZITHROMAX 250 MG ORAL TABLET 2 po today, then 1 po q days 2-5 20 10/03/08 ZITHROMAX 250 MG ORAL TABLET 240654 AZITHROMYCIN [place] ctive AZITHROMYCIN 500 MG ORAL TABLET 1 PO q day x 6 days 20 03/02/23 AZITHROMYCIN 500 MG ORAL TABLET 2663351 AZITHROMYCIN Inactive BACTRIM 400-80 MG ORAL TABLET take one po BID BACTRIM 400- 80 MG ORAL TABLET 365149 SULFAMETHOXAZOLE-TRIMETHOPRIM Inactive AZITHROMYCIN 250 MG ORAL TABLET 2 po qd x 1 day, then 1 po q d x 4 days AZITHROMYCIN 250 MG ORAL TABLET 426483 AZITHROMY ALLISON Inactive PREDNISONE 20 MG ORAL TABLET 2 tabs daily for 3 days, 1 tab daily for 3 days, 1/2 tab daily for 2 days PREDNISONE 20 MG ORAL T ABLET 566768 PREDNISONE Inactive ZITHROMAX 250 MG ORAL TABLET 2 po today, then 1 po q days 2-5 20 06/08/16 ZITHROMAX 250 MG ORAL TABLET 289956 AZITHROMYCIN Arlen ctive FLAGYL 500 MG ORAL TABLET 1 tablet by mouth two times daily 2014 FLAGYL 500 MG ORAL TABLET 132729 METRONIDAZOLE Inacti ve AUGMENTIN 875-125 MG ORAL TABLET 1 tab by mouth twice daily with food AUGMENTIN 875-125 MG ORAL TABLET 746294 AMOXICIL ELSA-POT CLAVULANATE Inactive NAPROXEN 500 MG ORAL TABLET one tab PO BID NAPROXEN 500 MG ORAL TABLET 385673 NAPROXEN Inactive PREDNISONE 20 MG ORAL TABLET 2 tabs daily for 3 days, 1 tab daily for 3 days, 1/2 tab daily for 2 days PREDNISONE 20 MG ORAL T ABLET 893855 PREDNISONE Inactive AZITHROMYCIN 250 MG ORAL TABLET 2 po qd x 1 day, then 1 po q d x 4 days AZITHROMYCIN 250 MG ORAL TABLET 540215 AZITHROMY ALLISON Inactive PREDNISONE 20 MG ORAL TABLET 2 tabs daily for 3 days, 1 tab daily for 3 days, 1/2 tab daily for 2 days PREDNISONE 20 MG ORAL T ABLET 859076 PREDNISONE Inactive ZITHROMAX Z-EMIL 250 MG ORAL TABLET 2 today, then 1 daily for 4 d ays ZITHROMAX Z-EMIL 250 MG ORAL TABLET 785892 AZITHROMYCIN Inactive CEFDINIR 300 MG ORAL CAPSULE 1 po BID x 10 days 12/18 CEFDINIR 300 MG ORAL CAPSULE 515782 CEFDINIR Inactive CEFDINIR 300 MG ORAL CAPSULE 1 po BID x 10 days CEFDINIR 300 MG ORAL CAPSULE 183741 CEFDINIR Inactive PREDNISONE 20 MG ORAL TABLET 2 tabs daily for 3 days, 1 tab daily for 3 days, 1/2 tab daily for 2 days PREDNISONE 20 MG ORAL T ABLET 471182 PREDNISONE Inactive BACTRIM DS 800-160 MG ORAL TABLET 1 tab by mouth twice daily 201 05/02/30 BACTRIM DS 800-160 MG ORAL TABLET 257269 TRIMETHOPRIM-SULFAMETHOXAZOLE Inactive ZITHROMAX Z-EMIL 250 MG ORAL TABLET 2 today, then 1 daily for 4 d ays ZITHROMAX Z-EMIL 250 MG ORAL TABLET 955753 AZITHROMYCIN Inactive TAMIFLU 75 MG ORAL CAPSULE 1 po BID x 5 days 0 TAMIFLU 75 MG ORAL CAPSULE 274201 OSELTAMIVIR PHOSPHATE Inactive CEFDINIR 300 MG ORAL CAPSULE 1 po BID x 10 days 01/03 CEFDINIR 300 MG ORAL CAPSULE 576618 CEFDINIR Inactive ZITHROMAX Z-EMIL 250 MG TABS Take two tablets today and then 1 tablet daily for 4 days ZITHROMAX Z-EMIL 250 MG TABS 452558 AZITHROM YCIN Inactive AMOXICILLIN 875 MG ORAL TABLET 1 tab by mouth twice daily AMOXICILLIN 875 MG ORAL TABLET 295452 AMOXICILLIN Inactive Advance Directives Directive Description Start [...] Unit Range Description Lab Report: CBC, Quant [facility] - Hematology leukocyte count, blood [...] Negative Encounters Code Encounter Date Provider Facility CPT-[id number] Vst-Est Level III 18:20:11 CDT Me lobito Russ APRN [facility] CPT-89138 [id number] Vst-Est Level III 17:21:41 CDT Me lobito Russ [facility]-05296 [id number] Vst-Est Level IV 13:30:22 C NIC Casper MD [facility] CPT-60008 Level 4 Est. Patient 13:05:26 CDT Myrna Real Bernabe maldonado MD [facility]-02566 [id number] Vst-Est Level IV 20:50:21 C DT Arie Casper MD [facility] CPT-68992 Level 3 Est. Patient 11:49:34 OIL HEATER INSTALLER Jessica boyd [facility] CPT-56489 Level 3 Est. Patient 14:55:50 OIL HEATER INSTALLER Jose Zhong MD [facility] CPT-54828 Level 3 Est. Patient 10:21:41 OIL HEATER INSTALLER Arie mcqueen MD [facility] CPT-98255 Level 3 Est. Patient 11:35:15 OIL HEATER INSTALLER Arie mcqueen MD [facility] CPT-74738 Level 3 Est. Patient 15:40:28 CDT Brii Are [facility] CPT-94328 Level 3 Est. Patient 16:40:36 CDT Arie mcqueen MD [facility] CPT-45860 Level 4 Est. Patient 15:29:22 OIL HEATER INSTALLER Arie mcqueen MD [facility] CPT-02275 Level 3 Est. Patient 15:18:16 OIL HEATER INSTALLER Jono black DO [facility] CPT-33987 Level 4 Est. Patient 12:08:40 OIL HEATER INSTALLER Brii Are [facility] CPT-92970 Level 3 Est. Patient 09:24:42 CDT Brii Are [facility] CPT-16758 Level 3 Est. Patient 09:12:56 CDT Arie mcqueen MD [facility] CPT-92616 Level 3 Est. Patient 16:40:54 CDT Jose Zhong MD [facility] CPT-78830 Level 2 Est. Patient 13:01:13 CDT Brii Yepez ll SINGLE RESOURCE BOSS [facility] CPT-49224 Level 3 Est. Patient 11:55:30 OIL HEATER INSTALLER Jono black DO [facility] CPT-92384 Level 3 Est. Patient 09:52:36 OIL HEATER INSTALLER Brii escalante [facility] CPT-28273 Level 3 Est. Patient 16:25:33 OIL HEATER INSTALLER Rich Rosales MD [facility] CPT-27713 Level 3 Est. Patient 20:33:55 CDT Arie mcqueen MD [facility] CPT-30717 Level 3 Est. Patient 14:18:20 CDT Rich Rosales MD [facility] CPT-35661 Level 4 Est. Patient 09:34:31 CDT Arie mcqueen MD [facility] CPT-38402 Level 3 Est. Patient 09:08:55 OIL HEATER INSTALLER Liliana vincent MD PhD [facility] CPT-84466 Level 3 Est. Patient 16:44:07 OIL HEATER INSTALLER Arie mcqueen MD [facility] CPT-69738 Level 3 Est. Patient 10:44:27 CDT Arie mcqueen MD [facility] CPT-70490 Level 3 Est. Patient 08:55:41 CDT Jose Zhong MD [facility] CPT-64159 Level 3 Est. Patient 18:37:31 CDT Liliana vincent MD PhD [facility] CPT-88143 Level 3 Est. Patient 14:28:23 CDT Abelardo HERNANDEZ [facility] CPT-16141 Level 3 Est. Patient 15:18:13 OIL HEATER INSTALLER Arie mcqueen MD [facility] CPT-68002 Level 3 Est. Patient 10:11:29 OIL HEATER INSTALLER Arie mcqueen MD [facility] CPT-78111 Level 3 Est. Patient 10:55:57 OIL HEATER INSTALLER Jono black DO [facility] CPT-54643 Level 3 Est. Patient 17:29:05 CDT Arie mcqueen MD [facility] Procedures Code Procedure Name Date Entry Date Standard Desc ription CPT-28694 Ear Wash with irrigation 17:21:41 CDT 07/04 CPT-44564 Nexplanon Removal 15:40:28 CDT CPT-27660 Sono transvag pelvis non OB uterus ovari es cervix - XRAY USE ONLY 08:58:14 OIL HEATER INSTALLER CPT-36890 UA w micro - LAB USE ONLY 16:04:56 OIL HEATER INSTALLER 2015 CPT-52125 Wet Prep/GEN - LAB USE ONLY 16:04:56 OIL HEATER INSTALLER 20 08/10/29 CPT-53769 First Vx - Ix admin via ID I M or jet injects without counseling by physician 16:57:10 CDT CPT-00087 Fluzone Preservative Free Intramuscular Suspension 16:57:10 CDT CPT-J0696 Rocephin 1000 mg (Ceftriaxone) 11:49:23 CDT CPT-J1040 Depo Medrol 80 mg (Methyl Prednisolone A cetate) 11:49:23 CDT CPT-J1100 Decadron 8mg (Dexamethasone) 11:49:23 CDT 2 CPT-47912 Abx/Therapy Injection 11:49:23 CDT CPT-68843 Abx/Therapy Injection 11:49:23 CDT CPT-93986 Abd compl w upright 09:07:26 [employer] CPT-42366 Ear Wash 16:12:47 [employer] CPT-OV Office Visit 11:12:01 CDT CPT-OV Office Visit 15:30:23 CDT CPT-27425 Sono pelvis non OB uterus ovaries cervix 15:50:44 CDT CPT-24424 Hand comp min 3V 16:42:32 CDT CPT-84481 Abd compl w upright 12:17:01 CDT CPT-52465 Nexplanon Placement 15:07:39 [employer] CPT-79333 Removal of IUD 15:07:39 [employer] HE[employer] IN[employer] CPT-57422 TB Tubersol 12:09:32 CDT CPT-55151 TB Tubersol 13:55:43 CDT
--- OUTSIDE RECORDS SUMMARY | 2020-03-03 07:57 | XMS REPORT | Clinical Summary ---
Author Author Admin, Diamante Marcelo Organization [employer] Address Unknown Phone Unavailable Allergies, Adverse Reactions, Alerts Allergy Name Reaction Description Start Date Severity Status Pr ovider DILAUDID Severe Active Brii MARROQUIN RN Conditions or Problems Problem Name Problem Code Onset Date Status Entry Date Provider Comment Standard Description Annotate FH BREAST CANCER V16.3 Resolved Jose Zhong MD Family history of malignant neoplasm of breast FH COLON CANCER V16.0 Resolved Jose Zhogn MD Family history of malignant neoplasm of [...] respiratory manifestations Sinusitis 473.9 Active Jessica Heaton TIRE FINISHER Unspecified sinusitis (chronic) Other mixed anxiety [...] Cerumen impaction, bilateral 380.4 Active Brii Russ TIRE FINISHER Impacted cerumen Tonsillar enlargement 474.11 Active Brii Russ APRN Hypertrophy of tonsils alone Influenza Vaccination for Prophylaxis V04.81 Inactive Brii Russ TIRE FINISHER Need for prophylactic vaccin ation and inoculation against influenza Submandibular lymph node 785.6 Active Brii Are ll TIRE FINISHER Enlargement of lymph nodes BREAST CANCER ICD-V16.3 Inactive Jose Marcelo FH [...] for Prophylaxis ICD-V04.81 6 Inactive Carole HOPKINS Urinary frequency ICD-788.41 Inactive Jose Zhong MD Medication List Medication Instructions Start Date Stop Date Generic Name NDC Status Provider Patient Instruction KEFLEX 500 MG ORAL CAPSULE 1 po tid CEPHALEXIN 512187 20435 Active Brii Russ APRN Active PROTONIX 40 MG ORAL TABLET DELAYED RELEASE 1 pill by m out daily, for acid reflux PANTOPRAZOLE SODIUM 70484245738 Active Roseann Crawford Active AMOXICILLIN 875 MG ORAL TABLET 1 tab by mouth twice daily 1 AMOXICILLIN 20708082185 No Longer Active Brii Russ APRN Active ALPRAZOLAM 0.25 MG ORAL TABLET 1 tablet by mouth twice a day as needed for stress/anxiety ALPRAZOLAM 93298968511 Active Arie whittington MD Active ESCITALOPRAM OXALATE 10 MG ORAL TABLET take 1 tab po qhs for mod 20 10/04/18 ESCITALOPRAM OXALATE 44276979504 Active Arie Casper MD Active TUSSIONEX PENNKINETIC ER 10-8 MG/5ML ORAL SUSPENSION E XTENDED RELEASE 5ml po q12hr PRN Cough HYDROCOD POLST-CHLORPHEN POLST 5 4700945479 No Longer Active Myrna Roberto MD Active ZITHROMAX Z-EMIL 250 MG TABS Take two tablets today and then 1 tablet daily for 4 days AZITHROMYCIN 77041772482 No Longer Active Flaco Rosales MD Active GUAIFENESIN DM 400-20 MG ORAL TABLET 1 pill by mouth t wice daily, if needed for cough DEXTROMETHORPHAN-GUAIFENESIN 09489065251 No Longer Active Rich Rosales MD Active CEFDINIR 300 MG ORAL CAPSULE 1 po BID x 10 days CEFDINIR 69170664224 No Longer Active Jessica Heaton APRN Active CHERATUSSIN AC 100-10 MG/5ML ORAL SYRUP 1 tsp by mouth every 4 hours as needed for cough GUAIFENESIN-CODEINE 15127046639 No Longe r Active Jessica Heaton APRN Active TAMIFLU 75 MG ORAL CAPSULE 1 po BID x 5 days 0 OSELTAMIVIR PHOSPHATE 22648092558 No Longer Active Jose Zhong MD Activ e ZITHROMAX Z-EMIL 250 MG ORAL TABLET 2 today, then 1 daily for 4 d ays AZITHROMYCIN 33893285040 No Longer Active Arie Casper MD Active PROTONIX 40 MG ORAL TABLET DELAYED RELEASE 1 po q a.m. PANTOPRAZOLE SODIUM 31347112518 No Longer Active Arie Casper MD Active BACTRIM DS 800-160 MG ORAL TABLET 1 tab by mouth twice daily 201 05/02/30 TRIMETHOPRIM-SULFAMETHOXAZOLE 01762476765 No Longer Active R [facility] Active NEXPLANON IMPLANT right arm subcutaneously ETONOGESTREL IMPL 68950410273 No Longer Active Brii Arell TIRE FINISHER Active TUSSIONEX PENNKINETIC ER 10-8 MG/5ML ORAL SUSPENSION E XTENDED RELEASE 5ml po q12hr PRN Cough HYDROCOD POLST-CHLORPHEN POLST 5 2575691844 No Longer Active Brii Arell TIRE FINISHER Active CETIRIZINE HCL 10 MG ORAL TABLET 1 po qd PRN Allergies CETIRIZINE HCL 40457848439 No Longer Active Brii Arell TIRE FINISHER Activ e PREDNISONE 20 MG ORAL TABLET 2 tabs daily for 3 days, 1 tab daily for 3 days, 1/2 tab daily for 2 days PREDNISONE 92687552788 No Longer Active Arie Casper MD Active LOMOTIL 2.5-0.025 MG ORAL TABLET 1 tab po four times a day as needed for diarrhea DIPHENOXYLATE-ATROPINE 72150056734 No Lo nger Active Arie Casper MD Active ZOLOFT 50 MG ORAL TABLET 1 tablet by mouth daily 12/08 SERTRALINE HCL 76374894610 No Longer Active Arie Casper MD Ac tive NAPROXEN 500 MG ORAL TABLET Take 1 tab BID NAPR OXEN 03301703976 No Longer Active Arie Casper MD Active CEFDINIR 300 MG ORAL CAPSULE 1 po BID x 10 days CEFDINIR 97451505120 No Longer Active Brii Areboris TIRE FINISHER Active PREDNISONE 20 MG ORAL TABLET 1 tablet daily for airway inflammat ion PREDNISONE 72511942352 No Longer Active Brii Russ TIRE FINISHER A ctive CEFDINIR 300 MG ORAL CAPSULE 1 po BID x 10 days CEFDINIR 41458457705 No Longer Active Jono Gagnon DO Active FLONASE 50 MCG/ACT NASAL SUSPENSION 1 spray each nostr il twice daily for allergies and runny nose until gone FLUT ICASONE PROPIONATE 89689712370 No Longer Active Jono Gagnon DO Active ALPRAZOLAM 0.25 MG ORAL TABLET 1 tablet by mouth every 8 hours as needed for stress ALPRAZOLAM 24625539032 No Longer Active Jono Gagnon DO Active ZITHROMAX Z-EMIL 250 MG ORAL TABLET 2 today, then 1 daily for 4 d ays AZITHROMYCIN 80219862672 No Longer Active Arie Casper MD Active PREDNISONE 20 MG ORAL TABLET 2 tabs daily for 3 days, 1 tab daily for 3 days, 1/2 tab daily for 2 days PREDNISONE 77417970913 No Longer Active Brii Arell TIRE FINISHER Active PREDNISONE 20 MG ORAL TABLET 1 tablet twice daily for 2 days, then 1 tablet once daily for 2 days PREDNISONE 50695253996 No Longer Active Brii Arell TIRE FINISHER Active PROMETHAZINE HCL 12.5 MG ORAL TABLET 1 tablet by mouth every 6 hours as needed for nausea/vomiting PROMETHAZINE HCL 72807798622 No L onger Active Jono Gagnon DO Active CITRATE OF MAGNESIA ORAL SOLUTION 1 bottle today for constipatio n MAGNESIUM CITRATE 66490855680 No Longer Active Jono Gagnon DO Active ZOFRAN 4 MG ORAL TABLET 1 TAB PO Q 6 HRS PRN NAUSEA 20 07/10/15 ONDANSETRON HCL 36608130816 No Longer Active Brii Russ APRN Acti ve LOMOTIL 2.5-0.025 MG ORAL TABLET 1 to 2 four times a day as needed for diarrhea DIPHENOXYLATE-ATROPINE 64732149757 No Longer Active January Russ APRN Active AMOXICILLIN 500 MG ORAL TABLET 2 tabs twice a day for 10 days 20 07/09/11 AMOXICILLIN 04837024168 No Longer Active Brii Russ APRN Active CYCLOBENZAPRINE HCL 10 MG ORAL TABLET 1/2 - 1 tablet b y mouth three times daily as needed for muscle spasm/pain CYCLOBENZAPRINE HCL 70080081629 No Longer Active Arie Casper MD Active LOMOTIL 2.5-0.025 MG ORAL TABLET 1 to 2 four times a day as needed for diarrhea DIPHENOXYLATE-ATROPINE 08326895988 No Longer Active Fozia Casper MD Active MACROBID 100 MG ORAL CAPSULE 1 cap by mouth twice daily NITROFURANTOIN MONOHYD MACRO 04147714676 No Longer Active Arie Casper MD Active ZYRTEC ALLERGY 10 MG ORAL CAPSULE 1 po qd CE TIRIZINE HCL 36053285800 No Longer Active Arie Casper MD Active AZITHROMYCIN 250 MG ORAL TABLET 2 po qd x 1 day, then 1 po q d x 4 days AZITHROMYCIN 15877478754 No Longer Active Jessica salgado APRN Active PREDNISONE 20 MG ORAL TABLET 2 tabs daily for 3 days, 1 tab daily for 3 days, 1/2 tab daily for 2 days PREDNISONE 32290287751 No Longer Active Jessica Heaton APRN Active PROMETHAZINE HCL 25 MG ORAL TABLET 1 four times a day as nee ded for vomiting PROMETHAZINE HCL 37196169942 No Longer Active Myrna Roberto MD Active BACTRIM DS 800-160 MG ORAL TABLET 1 twice a day 05/30 SULFAMETHOXAZOLE-TRIMETHOPRIM 30333446349 No Longer Active Myrna Roberto MD Active VICKS DAYQUIL SEVERE COLD/FLU TABLET 1 tab every 6 hours prn 201 02/22/17 [id number] TABS 93872492710 No Longer Active Chris Roberto MD Active GUAIFENESIN-CODEINE 100-10 MG/5ML ORAL SYRUP 2 tsp every 6 hours prn GUAIFENESIN-CODEINE 02518275392 No Longer Active Myrna Roberto MD Active NAPROXEN 500 MG ORAL TABLET one tab PO BID NAPR OXEN 16256152714 No Longer Active Myrna Roberto MD Active AUGMENTIN 875-125 MG ORAL TABLET 1 tab by mouth twice daily with food AMOXICILLIN-POT CLAVULANATE 55513628455 No Longer Act zaid Liliana Estrada MD PhD Active AMOXICILLIN 500 MG ORAL CAPSULE 1 tab by mouth 3 times daily 201 02/21/05 AMOXICILLIN 11789497533 No Longer Active Liliana Estrada MD PhD Active TESSALON PERLES 100 MG ORAL CAPSULE 1 tablet by mouth 3 times da cory BENZONATATE 91104738656 No Longer Active Liliana Estrada MD PhD Active FLAGYL 500 MG ORAL TABLET 1 tablet by mouth two times daily 2014 METRONIDAZOLE 04704294304 No Longer Active Nilam Doran tive ZITHROMAX 250 MG ORAL TABLET 2 po today, then 1 po q days 2-5 20 06/08/16 AZITHROMYCIN 77711085856 No Longer Active Arie Casper MD Active VITAMINS 0.8 MG ORAL TABLET take 1 tab po qday [id number] 09822880438 No Longer Active Arie Casper MD Active IBUPROFEN 800 MG ORAL TABLET take one po Q 8 hours 201 02/01/16 IBUPROFEN 26901569259 No Longer Active Arie Casper MD Acti ve [facility] TUSSIN COUGH/COLD CF 5-10-100 MG/5ML ORAL LIQUID 2 teasp oons every 4 hours [id number] 20283009918 No Longer Active Blaine aCsper MD Active COMTREX COLD/COUGH DAY/NITE MS 5-2-10-325 MG ORAL 2 caps deja ry 4 hours [id number] 11874823269 No Longer Active Da aleksandra Casper MD Active CHLORASEPTIC MAX SORE THROAT 15-10 MG MOUTH/THROAT LOZENGE 1 every 2 hours prn BENZOCAINE-MENTHOL 34028555222 No Longer Active Arie Casper MD Active PREDNISONE 20 MG ORAL TABLET 2 tabs daily for 3 days, 1 tab daily for 3 days, 1/2 tab daily for 2 days PREDNISONE 48107401957 No Longer Active Jose Zhong MD Active AZITHROMYCIN 250 MG ORAL TABLET 2 po qd x 1 day, then 1 po q d x 4 days AZITHROMYCIN 69769666398 No Longer Active Jose Mcwilliams MD Active ZOFRAN ODT 4 MG ORAL TABLET DISINTEGRATING 1 po q6hr PRN Nausea ONDANSETRON 69024777816 No Longer Active Rich Rosales MD Active ZOFRAN 4 MG ORAL TABLET 1 tablet every 4 hours ONDANSETRON HCL 93500940414 No Longer Active Rich Rosales MD Activ e MUCINEX 600 MG ORAL TABLET EXTENDED RELEASE 12 HOUR Ta ke 1-2 tablets every 12 hours GUAIFENESIN 20433104648 No Longer Active Rich Rosales MD Active BACTRIM 400-80 MG ORAL TABLET take one po BID SULFAMETHOXAZOLE-TRIMETHOPRIM 10855771684 No Longer Active Abelardo HERNANDEZ Active AZITHROMYCIN 500 MG ORAL TABLET 1 PO q day x 6 days 20 03/02/23 AZITHROMYCIN 09837496000 No Longer Active Tin HERNANDEZ Activ e ZITHROMAX 250 MG ORAL TABLET 2 po today, then 1 po q days 2-5 20 10/03/08 AZITHROMYCIN 68397439472 No Longer Active Arie Casper MD Active ZITHROMAX 250 MG ORAL TABLET 2 po today, then 1 po q days 2-5 20 09/23/25 AZITHROMYCIN 23320087141 No Longer Active Arie Casper MD Active AMOXICILLIN 500 MG ORAL CAPSULE 1 tab by mouth 3 times daily 201 11/24/09 AMOXICILLIN 12932828068 No Longer Active Aire Casper MD Active BACTRIM DS 800-160 MG ORAL TABLET 1 tab by mouth twice daily 201 11/03/14 TRIMETHOPRIM-SULFAMETHOXAZOLE 42314983015 No Longer Active Fozia Casper MD Active AMOXICILLIN 500 MG ORAL TABLET take 1 tab po TID 08/05 AMOXICILLIN 06880954359 No Longer Active Arie Casper MD Acti ve BACTRIM DS 800-160 MG ORAL TABLET 1 tab by mouth twice daily 201 11/03/14 BACTRIM DS 800-160 MG ORAL TABLET 096303 TRIMETHOPRIM-SULFAMETHOXAZOLE Inactive MUCINEX 600 MG ORAL TABLET EXTENDED RELEASE 12 HOUR Ta ke 1-2 tablets every 12 hours MUCINEX 600 MG ORAL TABLET EXTENDED RELEA SE 12 HOUR GUAIFENESIN Inactive ZOFRAN 4 MG ORAL TABLET 1 tablet every 4 hours ZOFRAN 4 MG ORAL TABLET 188731 ONDANSETRON HCL Inactive ZOFRAN ODT 4 MG ORAL TABLET DISINTEGRATING 1 po q6hr PRN Nausea ZOFRAN ODT 4 MG ORAL TABLET DISINTEGRATING 818906 ONDAN SETRON Inactive CHLORASEPTIC MAX SORE THROAT 15-10 MG MOUTH/THROAT LOZENGE 1 every 2 hours prn CHLORASEPTIC MAX SORE THROAT 15-10 MG MOUTH/THROAT LOZENGE BENZOCAINE-MENTHOL Inactive COMTREX COLD/COUGH DAY/NITE MS 5-2-10-325 MG ORAL 2 caps djea ry 4 hours COMTREX COLD/COUGH DAY/NITE MS 5-2-10-325 MG ORA L [id number] Inactive [facility] TUSSIN COUGH/COLD CF 5-10-100 MG/5ML ORAL LIQUID 2 teasp oons every 4 hours [facility] TUSSIN COUGH/COLD CF 5-10-100 MG/5ML ORAL LI QUID [id number] Inactive IBUPROFEN 800 MG ORAL TABLET take one po Q 8 hours 201 02/01/16 IBUPROFEN 800 MG ORAL TABLET 727748 IBUPROFEN Inactive VITAMINS 0.8 MG ORAL TABLET take 1 tab po qday VITAMINS 0.8 MG ORAL TABLET [id number] E-FA Inactive TESSALON PERLES 100 MG ORAL CAPSULE 1 tablet by mouth 3 times da cory TESSALON PERLES 100 MG ORAL CAPSULE 759188 BENZONATATE Inactive AMOXICILLIN 500 MG ORAL CAPSULE 1 tab by mouth 3 times daily 201 02/21/05 AMOXICILLIN 500 MG ORAL CAPSULE 721053 AMOXICILLIN Inactive GUAIFENESIN-CODEINE 100-10 MG/5ML ORAL SYRUP 2 tsp every 6 hours prn GUAIFENESIN-CODEINE 100-10 MG/5ML ORAL SYRUP 848194 GUAIFENESIN-CODEINE Inactive VICKS DAYQUIL SEVERE COLD/FLU TABLET 1 tab every 6 hours prn 201 02/22/17 VICKS DAYQUIL SEVERE COLD/FLU TABLET PHENYLEPHRI AY-GH-NS-APAP TABS Inactive BACTRIM DS 800-160 MG ORAL TABLET 1 twice a day 05/30 BACTRIM DS 800-160 MG ORAL TABLET 516646 SULFAMETHOXAZOLE-TRIMETHOPRIM Inactiv e PROMETHAZINE HCL 25 MG ORAL TABLET 1 four times a day as nee ded for vomiting PROMETHAZINE HCL 25 MG ORAL TABLET 950433 PROMETHAZINE HCL Inactive ZYRTEC ALLERGY 10 MG ORAL CAPSULE 1 po qd ZYRTEC ALLERGY 10 MG ORAL CAPSULE CETIRIZINE HCL Inactive MACROBID 100 MG ORAL CAPSULE 1 cap by mouth twice daily MACROBID 100 MG ORAL CAPSULE 8428539 NITROFURANTOIN MONOHYD MACRO In active LOMOTIL 2.5-0.025 MG ORAL TABLET 1 to 2 four times a day as needed for diarrhea LOMOTIL 2.5-0.025 MG ORAL TABLET 7027084 DIPHENOXYLATE-ATROPINE Inactive CYCLOBENZAPRINE HCL 10 MG ORAL TABLET 1/2 - 1 tablet b y mouth three times daily as needed for muscle spasm/pain CYCLOBEN ZAPRINE HCL 10 MG ORAL TABLET 424887 CYCLOBENZAPRINE HCL Inactive AMOXICILLIN 500 MG ORAL TABLET 2 tabs twice a day for 10 days 20 07/09/11 AMOXICILLIN 500 MG ORAL TABLET 049199 AMOXICILLIN I nactive LOMOTIL 2.5-0.025 MG ORAL TABLET 1 to 2 four times a day as needed for diarrhea LOMOTIL 2.5-0.025 MG ORAL TABLET 1120221 DIPHENOXYLATE-ATROPINE Inactive ZOFRAN 4 MG ORAL TABLET 1 TAB PO Q 6 HRS PRN NAUSEA 07/10/15 ZOFRAN 4 MG ORAL TABLET 356143 ONDANSETRON HCL Inactive CITRATE OF MAGNESIA ORAL SOLUTION 1 bottle today for constipatio n CITRATE OF MAGNESIA ORAL SOLUTION 5909598 MAGNESIUM CITR ATE Inactive PROMETHAZINE HCL 12.5 MG ORAL TABLET 1 tablet by mouth every 6 hours as needed for nausea/vomiting PROMETHAZINE HCL 12.5 MG ORA L TABLET 870091 PROMETHAZINE HCL Inactive PREDNISONE 20 MG ORAL TABLET 1 tablet twice daily for 2 days, then 1 tablet once daily for 2 days PREDNISONE 20 MG ORAL TABLET 138908 PREDNISONE Inactive ALPRAZOLAM 0.25 MG ORAL TABLET 1 tablet by mouth every 8 hours as needed for stress ALPRAZOLAM 0.25 MG ORAL TABLET 144563 ALPRA ZOLAM Inactive FLONASE 50 MCG/ACT NASAL SUSPENSION 1 spray each nostr il twice daily for allergies and runny nose until gone FLON ASE 50 MCG/ACT NASAL SUSPENSION 5478023 FLUTICASONE PROPIONATE Inactive PREDNISONE 20 MG ORAL TABLET 1 tablet daily for airway inflammat ion PREDNISONE 20 MG ORAL TABLET 251050 PREDNISONE Hardin ctive NAPROXEN 500 MG ORAL TABLET Take 1 tab BID NAPROXEN 500 MG ORAL TABLET 139119 NAPROXEN Inactive ZOLOFT 50 MG ORAL TABLET 1 tablet by mouth daily 12/08 ZOLOFT 50 MG ORAL TABLET 594096 SERTRALINE HCL Inactive LOMOTIL 2.5-0.025 MG ORAL TABLET 1 tab po four times a day as needed for diarrhea LOMOTIL 2.5-0.025 MG ORAL TABLET 4617585 DIPHENOXYLATE-ATROPINE Inactive CETIRIZINE HCL 10 MG ORAL TABLET 1 po qd PRN Allergies CETIRIZINE HCL 10 MG ORAL TABLET 9153846 CETIRIZINE HCL Inactiv e TUSSIONEX PENNKINETIC ER 10-8 MG/5ML ORAL SUSPENSION E XTENDED RELEASE 5ml po q12hr PRN Cough TUSSIONEX PENNKINETI C ER 10-8 MG/5ML ORAL SUSPENSION EXTENDED RELEASE HYDROCOD POLST-CHLORPHEN POLST I nactive NEXPLANON IMPLANT right arm subcutaneously NEXPLANON IMPLANT ETONOGESTREL IMPL Inactive PROTONIX 40 MG ORAL TABLET DELAYED RELEASE 1 po q a.m. PROTONIX 40 MG ORAL TABLET DELAYED RELEASE 207202 PANTOPRAZOLE SODI UM Inactive CHERATUSSIN AC 100-10 MG/5ML ORAL SYRUP 1 tsp by mouth every 4 hours as needed for cough CHERATUSSIN AC 100-10 MG/5ML ORAL SYRUP 9 69217 GUAIFENESIN-CODEINE Inactive GUAIFENESIN DM 400-20 MG ORAL TABLET 1 pill by mouth t wice daily, if needed for cough GUAIFENESIN DM 400-20 MG ORAL TABLET 1143 682 DEXTROMETHORPHAN-GUAIFENESIN Inactive TUSSIONEX PENNKINETIC ER 10-8 MG/5ML ORAL SUSPENSION E XTENDED RELEASE 5ml po q12hr PRN Cough TUSSIONEX PENNKINETI C ER 10-8 MG/5ML ORAL SUSPENSION EXTENDED RELEASE HYDROCOD POLST-CHLORPHEN POLST I nactive AMOXICILLIN 500 MG ORAL TABLET take 1 tab po TID 08/05 AMOXICILLIN 500 MG ORAL TABLET 116167 AMOXICILLIN Inactive AMOXICILLIN 500 MG ORAL CAPSULE 1 tab by mouth 3 times daily 201 11/24/09 AMOXICILLIN 500 MG ORAL CAPSULE 654951 AMOXICILLIN Inactive ZITHROMAX 250 MG ORAL TABLET 2 po today, then 1 po q days 2-5 20 09/23/25 ZITHROMAX 250 MG ORAL TABLET 137027 AZITHROMYCIN Hardin ctive ZITHROMAX 250 MG ORAL TABLET 2 po today, then 1 po q days 2-5 20 10/03/08 ZITHROMAX 250 MG ORAL TABLET 949754 AZITHROMYCIN Arlen ctive AZITHROMYCIN 500 MG ORAL TABLET 1 PO q day x 6 days 20 03/02/23 AZITHROMYCIN 500 MG ORAL TABLET 0216123 AZITHROMYCIN Inactive BACTRIM 400-80 MG ORAL TABLET take one po BID BACTRIM 400- 80 MG ORAL TABLET 572710 SULFAMETHOXAZOLE-TRIMETHOPRIM Inactive AZITHROMYCIN 250 MG ORAL TABLET 2 po qd x 1 day, then 1 po q d x 4 days AZITHROMYCIN 250 MG ORAL TABLET 037345 AZITHROMY ALLISON Inactive PREDNISONE 20 MG ORAL TABLET 2 tabs daily for 3 days, 1 tab daily for 3 days, 1/2 tab daily for 2 days PREDNISONE 20 MG ORAL T ABLET 671368 PREDNISONE Inactive ZITHROMAX 250 MG ORAL TABLET 2 po today, then 1 po q days 2-5 20 06/08/16 ZITHROMAX 250 MG ORAL TABLET 982075 AZITHROMYCIN Arlen ctive FLAGYL 500 MG ORAL TABLET 1 tablet by mouth two times daily 2014 FLAGYL 500 MG ORAL TABLET 274515 METRONIDAZOLE Inacti ve AUGMENTIN 875-125 MG ORAL TABLET 1 tab by mouth twice daily with food AUGMENTIN 875-125 MG ORAL TABLET 124170 AMOXICIL ELSA-POT CLAVULANATE Inactive NAPROXEN 500 MG ORAL TABLET one tab PO BID NAPROXEN 500 MG ORAL TABLET 161560 NAPROXEN Inactive PREDNISONE 20 MG ORAL TABLET 2 tabs daily for 3 days, 1 tab daily for 3 days, 1/2 tab daily for 2 days PREDNISONE 20 MG ORAL T ABLET 386652 PREDNISONE Inactive AZITHROMYCIN 250 MG ORAL TABLET 2 po qd x 1 day, then 1 po q d x 4 days AZITHROMYCIN 250 MG ORAL TABLET 356264 AZITHROMY ALLISON Inactive PREDNISONE 20 MG ORAL TABLET 2 tabs daily for 3 days, 1 tab daily for 3 days, 1/2 tab daily for 2 days PREDNISONE 20 MG ORAL T ABLET 272979 PREDNISONE Inactive ZITHROMAX Z-EMIL 250 MG ORAL TABLET 2 today, then 1 daily for 4 d ays ZITHROMAX Z-EMIL 250 MG ORAL TABLET 973651 AZITHROMYCIN Inactive CEFDINIR 300 MG ORAL CAPSULE 1 po BID x 10 days 12/18 CEFDINIR 300 MG ORAL CAPSULE 702927 CEFDINIR Inactive CEFDINIR 300 MG ORAL CAPSULE 1 po BID x 10 days CEFDINIR 300 MG ORAL CAPSULE 701681 CEFDINIR Inactive PREDNISONE 20 MG ORAL TABLET 2 tabs daily for 3 days, 1 tab daily for 3 days, 1/2 tab daily for 2 days PREDNISONE 20 MG ORAL T ABLET 491740 PREDNISONE Inactive BACTRIM DS 800-160 MG ORAL TABLET 1 tab by mouth twice daily 201 05/02/30 BACTRIM DS 800-160 MG ORAL TABLET 166019 TRIMETHOPRIM-SULFAMETHOXAZOLE Inactive ZITHROMAX Z-EMIL 250 MG ORAL TABLET 2 today, then 1 daily for 4 d ays ZITHROMAX Z-EMIL 250 MG ORAL TABLET 758328 AZITHROMYCIN Inactive TAMIFLU 75 MG ORAL CAPSULE 1 po BID x 5 days 0 TAMIFLU 75 MG ORAL CAPSULE 358060 OSELTAMIVIR PHOSPHATE Inactive CEFDINIR 300 MG ORAL CAPSULE 1 po BID x 10 days 01/03 CEFDINIR 300 MG ORAL CAPSULE 241518 CEFDINIR Inactive ZITHROMAX Z-EMIL 250 MG TABS Take two tablets today and then 1 tablet daily for 4 days ZITHROMAX Z-EMIL 250 MG TABS 501081 AZITHROM YCIN Inactive AMOXICILLIN 875 MG ORAL TABLET 1 tab by mouth twice daily AMOXICILLIN 875 MG ORAL TABLET 947020 AMOXICILLIN Inactive Advance Directives Directive Description Start [...] d blood pressure, diastolic 76 mm[Hg] BP kenendy blood pressure, systolic 120 mm[Hg] BP sys [...] Unit Range Description Lab Report: CBC, Quant BHG - Hematology mean corpuscular hemoglobin, RBC 26.7 pg 27. 0-31.2 mean corpuscular hemoglobin concentration, RBC 32.2 G/DL % 31.8-35.4 red blood cell distribution width 13.3 % 11 .6-14.8 platelet count 263 10^3/MM^3 10*3/mm3 593-278 6226/11/09 leukocyte count, blood 7.8 10^3/MM^3 10*3/mm3 4.6-10.2 [...] Negative Encounters Code Encounter Date Provider Facility CPT-75436 [id number] Vst-Est Level III 18:20:11 CDT Me lobito Russ APRN [facility] CPT-84946 [id number] Vst-Est Level III 17:21:41 CDT Me lobito Russ [facility] CPT-80181 [id number] Vst-Est Level IV 13:30:22 C NIC Casper MD [facility] CPT-64006 Level 4 Est. Patient 13:05:26 CDT Myrna Real Bernabe maldonado MD [facility]-22346 [id number] Vst-Est Level IV 20:50:21 C DT Arie Casper MD [facility] CPT-66301 Level 3 Est. Patient 11:49:34 MUSIC TYPOGRAPHER Jessica boyd [facility]-52342 Level 3 Est. Patient 14:55:50 MUSIC TYPOGRAPHER Jose Zhong [facility] CPT-70122 Level 3 Est. Patient 10:21:41 MUSIC TYPOGRAPHER Arie mcqueen MD [facility] CPT-62590 Level 3 Est. Patient 11:35:15 MUSIC TYPOGRAPHER Arie mcqueen MD [facility] CPT-05591 Level 3 Est. Patient 15:40:28 CDT Brii Are [facility] CPT-02413 Level 3 Est. Patient 16:40:36 CDT Arie mcqueen MD [facility] CPT-64680 Level 4 Est. Patient 15:29:22 MUSIC TYPOGRAPHER Arie mcqueen MD [facility] CPT-04183 Level 3 Est. Patient 15:18:16 MUSIC TYPOGRAPHER Jono black DO [facility] CPT-92097 Level 4 Est. Patient 12:08:40 MUSIC TYPOGRAPHER Brii Are ll [facility] CPT-52136 Level 3 Est. Patient 09:24:42 CDT Brii Are [facility] CPT-04850 Level 3 Est. Patient 09:12:56 CDT Arie mcqueen MD [facility] CPT-10746 Level 3 Est. Patient 16:40:54 CDT Jose Zhong MD [facility] CPT-22172 Level 2 Est. Patient 13:01:13 CDT Brii Yepez ll [facility] CPT-90996 Level 3 Est. Patient 11:55:30 MUSIC TYPOGRAPHER Jono black DO [facility] CPT-03013 Level 3 Est. Patient 09:52:36 MUSIC TYPOGRAPHER Brii Yepez ll [facility] CPT-85007 Level 3 Est. Patient 16:25:33 MUSIC TYPOGRAPHER Rich Rosales MD [facility] CPT-57241 Level 3 Est. Patient 20:33:55 CDT Arie mcqueen MD [facility] CPT-27436 Level 3 Est. Patient 14:18:20 CDT Rich Rosales MD [facility] CPT-49700 Level 4 Est. Patient 09:34:31 CDT Arie mcqueen MD [facility] CPT-92132 Level 3 Est. Patient 09:08:55 MUSIC TYPOGRAPHER Liliana vincent MD PhD [facility]-25602 Level 3 Est. Patient 16:44:07 MUSIC TYPOGRAPHER Arie mcqueen MD [facility] CPT-66849 Level 3 Est. Patient 10:44:27 CDT Arie mcqueen MD [facility] CPT-64267 Level 3 Est. Patient 08:55:41 CDT Jose Zhong MD [facility] CPT-73530 Level 3 Est. Patient 18:37:31 CDT Liliana vincent MD PhD [facility]-16296 Level 3 Est. Patient 14:28:23 CDT Abelardo HERNANDEZ [facility] CPT-59503 Level 3 Est. Patient 15:18:13 MUSIC TYPOGRAPHER Arie mcqueen MD [facility] CPT-50641 Level 3 Est. Patient 10:11:29 MUSIC TYPOGRAPHER Arie mcqueen MD [facility] CPT-28565 Level 3 Est. Patient 10:55:57 MUSIC TYPOGRAPHER Jono black DO [facility] CPT-55629 Level 3 Est. Patient 17:29:05 CDT Arie mcqueen MD [facility] Procedures Code Procedure Name Date Entry Date Standard Desc ription CPT-45024 Ear Wash with irrigation 17:21:41 CDT 07/04 CPT-46269 Nexplanon Removal 15:40:28 CDT CPT-52304 Sono transvag pelvis non OB uterus ovari es cervix - XRAY USE ONLY 08:58:14 MUSIC TYPOGRAPHER CPT-00017 UA w micro - LAB USE ONLY 16:04:56 MUSIC TYPOGRAPHER 2015 CPT-66896 Wet Prep/GEN - LAB USE ONLY 16:04:56 MUSIC TYPOGRAPHER 20 08/10/29 CPT-06345 First Vx - Ix admin via ID I M or jet injects without counseling by physician 16:57:10 CDT CPT-72921 Fluzone Preservative Free Intramuscular Suspension 16:57:10 CDT CPT-J0696 Rocephin 1000 mg (Ceftriaxone) 11:49:23 CDT CPT-J1040 Depo Medrol 80 mg (Methyl Prednisolone A cetate) 11:49:23 CDT CPT-J1100 Decadron 8mg (Dexamethasone) 11:49:23 CDT 2 CPT-33786 Abx/Therapy Injection 11:49:23 CDT CPT-09743 Abx/Therapy Injection 11:49:23 CDT CPT-18692 Abd compl w upright 09:07:26 MUSIC TYPOGRAPHER CPT-83679 Ear Wash 16:12:47 MUSIC TYPOGRAPHER CPT-OV Office Visit 11:12:01 CDT CPT-OV Office Visit 15:30:23 CDT CPT-86913 Sono pelvis non OB uterus ovaries cervix 15:50:44 CDT CPT-82298 Hand comp min 3V 16:42:32 CDT CPT-84809 Abd compl w upright 12:17:01 CDT CPT-63450 Nexplanon Placement 15:07:39 MUSIC TYPOGRAPHER CPT-61239 Removal of IUD 15:07:39 MUSIC TYPOGRAPHER CPT-59664 TB Tubersol 12:09:32 CDT CPT-19805 TB Tubersol 13:55:43 CDT
--- OUTSIDE RECORDS SUMMARY | 2020-03-03 07:57 | XMS REPORT | Clinical Summary ---
Author Author Admin, Diamante Marcelo Organization [employer] Address Unknown Phone Unavailable Allergies, Adverse Reactions, [...] respiratory manifestations Sinusitis 473.9 Active Jessica Heaton SOFTWARE ENGINEERING ANALYST Unspecified sinusitis (chronic) Other mixed anxiety [...] Cerumen impaction, bilateral 380.4 Active Brii Russ SOFTWARE ENGINEERING ANALYST Impacted cerumen Tonsillar enlargement 474.11 Active Brii Russ APRN Hypertrophy of tonsils alone Influenza Vaccination for Prophylaxis V04.81 Active Brii Russ SOFTWARE ENGINEERING ANALYST Need for prophylactic vaccin ation and inoculation against influenza Submandibular lymph node 785.6 Active Brii Are ll SOFTWARE ENGINEERING ANALYST Enlargement of lymph nodes BREAST CANCER ICD-V16.3 [...] MG ORAL CAPSULE 1 po tid CEPHALEXIN 091078 46877 Active Brii Russ APRN Active PROTONIX 40 MG ORAL TABLET DELAYED RELEASE 1 pill by m outh daily, for acid reflux PANTOPRAZOLE SODIUM 76281348230 Active Roseann Crawford Active AMOXICILLIN 875 MG ORAL TABLET 1 tab by mouth twice daily 1 AMOXICILLIN 52946483838 No Longer Active Brii Arell SOFTWARE ENGINEERING ANALYST Active ALPRAZOLAM 0.25 MG ORAL TABLET 1 tablet by mouth twice a day as needed for stress/anxiety ALPRAZOLAM 50592270903 Active Arie whittington MD Active ESCITALOPRAM OXALATE 10 MG ORAL TABLET take 1 tab po qhs for mod 20 10/04/18 ESCITALOPRAM OXALATE 90716605791 Active Arie Casper MD Active TUSSIONEX PENNKINETIC ER 10-8 MG/5ML ORAL SUSPENSION E XTENDED RELEASE 5ml po q12hr PRN Cough HYDROCOD POLST-CHLORPHEN POLST 5 5195023888 No Longer Active Myrna Roberto MD Active ZITHROMAX Z-EMIL 250 MG TABS Take two tablets today and then 1 tablet daily for 4 days AZITHROMYCIN 95377795714 No Longer Active Flaco Rosales MD Active GUAIFENESIN DM 400-20 MG ORAL TABLET 1 pill by mouth t wice daily, if needed for cough DEXTROMETHORPHAN-GUAIFENESIN 83875850884 No Longer Active Rich Rosales MD Active CEFDINIR 300 MG ORAL CAPSULE 1 po BID x 10 days CEFDINIR 85130219935 No Longer Active Jessica Heaton APRN Active CHERATUSSIN AC 100-10 MG/5ML ORAL SYRUP 1 tsp by mouth every 4 hours as needed for cough GUAIFENESIN-CODEINE 13055482123 No Longe r Active Jessica Heaton APRN Active TAMIFLU 75 MG ORAL CAPSULE 1 po BID x 5 days 0 OSELTAMIVIR PHOSPHATE 73174441864 No Longer Active Jose Zhong MD Activ e ZITHROMAX Z-EMIL 250 MG ORAL TABLET 2 today, then 1 daily for 4 d ays AZITHROMYCIN 25255833635 No Longer Active Arie Casper MD Active PROTONIX 40 MG ORAL TABLET DELAYED RELEASE 1 po q a.m. PANTOPRAZOLE SODIUM 19153134427 No Longer Active Arie Casper MD Active BACTRIM DS 800-160 MG ORAL TABLET 1 tab by mouth twice daily 201 05/02/30 TRIMETHOPRIM-SULFAMETHOXAZOLE 77788469991 No Longer Active R [facility] Active NEXPLANON IMPLANT right arm subcutaneously ETONOGESTREL IMPL 69407404926 No Longer Active Brii Russ SOFTWARE ENGINEERING ANALYST Active TUSSIONEX PENNKINETIC ER 10-8 MG/5ML ORAL SUSPENSION E XTENDED RELEASE 5ml po q12hr PRN Cough HYDROCOD POLST-CHLORPHEN POLST 5 1652763885 No Longer Active Brii Russ SOFTWARE ENGINEERING ANALYST Active CETIRIZINE HCL 10 MG ORAL TABLET 1 po qd PRN Allergies CETIRIZINE HCL 27948011785 No Longer Active Brii Russ SOFTWARE ENGINEERING ANALYST Activ e PREDNISONE 20 MG ORAL TABLET 2 tabs daily for 3 days, 1 tab daily for 3 days, 1/2 tab daily for 2 days PREDNISONE 57490249681 No Longer Active Arie Casper MD Active LOMOTIL 2.5-0.025 MG ORAL TABLET 1 tab po four times a day as needed for diarrhea DIPHENOXYLATE-ATROPINE 48501614479 No Lo nger Active Arie Casper MD Active ZOLOFT 50 MG ORAL TABLET 1 tablet by mouth daily 12/08 SERTRALINE HCL 58396024869 No Longer Active Arie Casper MD Ac tive NAPROXEN 500 MG ORAL TABLET Take 1 tab BID NAPR OXEN 20132880234 No Longer Active Arie Casper MD Active CEFDINIR 300 MG ORAL CAPSULE 1 po BID x 10 days CEFDINIR 73596225884 No Longer Active Brii Russ SOFTWARE ENGINEERING ANALYST Active PREDNISONE 20 MG ORAL TABLET 1 tablet daily for airway inflammat ion PREDNISONE 01175950094 No Longer Active Brii Russ APRN A ctive CEFDINIR 300 MG ORAL CAPSULE 1 po BID x 10 days CEFDINIR 77017914499 No Longer Active Jono Gagnon DO Active FLONASE 50 MCG/ACT NASAL SUSPENSION 1 spray each nostr il twice daily for allergies and runny nose until gone FLUT ICASONE PROPIONATE 00770312952 No Longer Active Jono Gagnon DO Active ALPRAZOLAM 0.25 MG ORAL TABLET 1 tablet by mouth every 8 hours as needed for stress ALPRAZOLAM 51019359951 No Longer Active Jono Gagnon DO Active ZITHROMAX Z-EMIL 250 MG ORAL TABLET 2 today, then 1 daily for 4 d ays AZITHROMYCIN 42359865684 No Longer Active Arie Casper MD Active PREDNISONE 20 MG ORAL TABLET 2 tabs daily for 3 days, 1 tab daily for 3 days, 1/2 tab daily for 2 days PREDNISONE 59314042643 No Longer Active Brii Russ SOFTWARE ENGINEERING ANALYST Active PREDNISONE 20 MG ORAL TABLET 1 tablet twice daily for 2 days, then 1 tablet once daily for 2 days PREDNISONE 48110945289 No Longer Active Brii Russ SOFTWARE ENGINEERING ANALYST Active PROMETHAZINE HCL 12.5 MG ORAL TABLET 1 tablet by mouth every 6 hours as needed for nausea/vomiting PROMETHAZINE HCL 99621319973 No L onger Active Jono Gagnon DO Active CITRATE OF MAGNESIA ORAL SOLUTION 1 bottle today for constipatio n MAGNESIUM CITRATE 51701462049 No Longer Active Jono Gagnon DO Active ZOFRAN 4 MG ORAL TABLET 1 TAB PO Q 6 HRS PRN NAUSEA 07/10/15 ONDANSETRON HCL 69151883244 No Longer Active Brii Russ APRN Acti ve LOMOTIL 2.5-0.025 MG ORAL TABLET 1 to 2 four times a day as needed for diarrhea DIPHENOXYLATE-ATROPINE 16443587808 No Longer Active January Russ APRN Active AMOXICILLIN 500 MG ORAL TABLET 2 tabs twice a day for 10 days 20 07/09/11 AMOXICILLIN 41078727356 No Longer Active Brii Russ APRN Active CYCLOBENZAPRINE HCL 10 MG ORAL TABLET 1/2 - 1 tablet b y mouth three times daily as needed for muscle spasm/pain CYCLOBENZAPRINE HCL 61282989837 No Longer Active Arie Casper MD Active LOMOTIL 2.5-0.025 MG ORAL TABLET 1 to 2 four times a day as needed for diarrhea DIPHENOXYLATE-ATROPINE 06409866163 No Longer Active Fozia Casper MD Active MACROBID 100 MG ORAL CAPSULE 1 cap by mouth twice daily NITROFURANTOIN MONOHYD MACRO 33651349106 No Longer Active Arie Casper MD Active ZYRTEC ALLERGY 10 MG ORAL CAPSULE 1 po qd CE TIRIZINE HCL 74842909897 No Longer Active Arie Casper MD Active AZITHROMYCIN 250 MG ORAL TABLET 2 po qd x 1 day, then 1 po q d x 4 days AZITHROMYCIN 64496669564 No Longer Active Waynellarlen Faith naomi SOFTWARE ENGINEERING ANALYST Active PREDNISONE 20 MG ORAL TABLET 2 tabs daily for 3 days, 1 tab daily for 3 days, 1/2 tab daily for 2 days PREDNISONE 03387779673 No Longer Active Jillina Fradeepl SOFTWARE ENGINEERING ANALYST Active PROMETHAZINE HCL 25 MG ORAL TABLET 1 four times a day as nee ded for vomiting PROMETHAZINE HCL 42402569970 No Longer Active Myrna Roberto MD Active BACTRIM DS 800-160 MG ORAL TABLET 1 twice a day 05/30 SULFAMETHOXAZOLE-TRIMETHOPRIM 90080298841 No Longer Active Myrna Roberto MD Active VICKS DAYQUIL SEVERE COLD/FLU TABLET 1 tab every 6 hours prn 201 02/22/17 [id number] TABS 64846401341 No Longer Active Chris Roberto MD Active GUAIFENESIN-CODEINE 100-10 MG/5ML ORAL SYRUP 2 tsp every 6 hours prn GUAIFENESIN-CODEINE 45838404309 No Longer Active Myrna Roberto MD Active NAPROXEN 500 MG ORAL TABLET one tab PO BID NAPR OXEN 16882984870 No Longer Active Myrna Roberto MD Active AUGMENTIN 875-125 MG ORAL TABLET 1 tab by mouth twice daily with food AMOXICILLIN-POT CLAVULANATE 30038787918 No Longer Act zaid Liliana Estrada MD PhD Active AMOXICILLIN 500 MG ORAL CAPSULE 1 tab by mouth 3 times daily 201 02/21/05 AMOXICILLIN 98787707397 No Longer Active Liliana Estrada MD PhD Active TESSALON PERLES 100 MG ORAL CAPSULE 1 tablet by mouth 3 times da cory BENZONATATE 03026864172 No Longer Active Liliana Estrada MD PhD Active FLAGYL 500 MG ORAL TABLET 1 tablet by mouth two times daily 2014 METRONIDAZOLE 70459085380 No Longer Active Nilam Doran tive ZITHROMAX 250 MG ORAL TABLET 2 po today, then 1 po q days 2-5 20 06/08/16 AZITHROMYCIN 66705295061 No Longer Active Arie Casper MD Active VITAMINS 0.8 MG ORAL TABLET take 1 tab po qday [id number] 04003521002 No Longer Active Arie Casper MD Active IBUPROFEN 800 MG ORAL TABLET take one po Q 8 hours 201 02/01/16 IBUPROFEN 70081757123 No Longer Active Arie Casper MD Acti ve [facility] TUSSIN COUGH/COLD CF 5-10-100 MG/5ML ORAL LIQUID 2 teasp oons every 4 hours [id number] 96907251145 No Longer Active Blaine Casper MD Active COMTREX COLD/COUGH DAY/NITE MS 5-2-10-325 MG ORAL 2 caps deja ry 4 hours [id number] 78623599472 No Longer Active Landon Casper MD Active CHLORASEPTIC MAX SORE THROAT 15-10 MG MOUTH/THROAT LOZENGE 1 every 2 hours prn BENZOCAINE-MENTHOL 15737958390 No Longer Active Arie Casper MD Active PREDNISONE 20 MG ORAL TABLET 2 tabs daily for 3 days, 1 tab daily for 3 days, 1/2 tab daily for 2 days PREDNISONE 81137126223 No Longer Active Jose Zhong MD Active AZITHROMYCIN 250 MG ORAL TABLET 2 po qd x 1 day, then 1 po q d x 4 days AZITHROMYCIN 94558941958 No Longer Active Jose Mcwilliams MD Active ZOFRAN ODT 4 MG ORAL TABLET DISINTEGRATING 1 po q6hr PRN Nausea ONDANSETRON 58023526732 No Longer Active Rich Rosales MD Active ZOFRAN 4 MG ORAL TABLET 1 tablet every 4 hours ONDANSETRON HCL 33113830810 No Longer Active Rich Rosales MD Activ e MUCINEX 600 MG ORAL TABLET EXTENDED RELEASE 12 HOUR Ta ke 1-2 tablets every 12 hours GUAIFENESIN 01088135380 No Longer Active Rich Rosales MD Active BACTRIM 400-80 MG ORAL TABLET take one po BID SULFAMETHOXAZOLE-TRIMETHOPRIM 45549738873 No Longer Active Abelardo HERNANDEZ Active AZITHROMYCIN 500 MG ORAL TABLET 1 PO q day x 6 days 20 03/02/23 AZITHROMYCIN 11327590723 No Longer Active Tin HERNANDEZ Activ e ZITHROMAX 250 MG ORAL TABLET 2 po today, then 1 po q days 2-5 20 10/03/08 AZITHROMYCIN 23934583169 No Longer Active Arie Casper MD Active ZITHROMAX 250 MG ORAL TABLET 2 po today, then 1 po q days 2-5 20 09/23/25 AZITHROMYCIN 88288904315 No Longer Active Arie Casper MD Active AMOXICILLIN 500 MG ORAL CAPSULE 1 tab by mouth 3 times daily 201 11/24/09 AMOXICILLIN 09998675332 No Longer Active Arie Casper MD Active BACTRIM DS 800-160 MG ORAL TABLET 1 tab by mouth twice daily 201 11/03/14 TRIMETHOPRIM-SULFAMETHOXAZOLE 41285038153 No Longer Active Fozia Casper MD Active AMOXICILLIN 500 MG ORAL TABLET take 1 tab po TID 08/05 AMOXICILLIN 26502787294 No Longer Active Arie Casper MD Acti ve BACTRIM DS 800-160 MG ORAL TABLET 1 tab by mouth twice daily 201 11/03/14 BACTRIM DS 800-160 MG ORAL TABLET 173974 TRIMETHOPRIM-SULFAMETHOXAZOLE Inactive MUCINEX 600 MG ORAL TABLET EXTENDED RELEASE 12 HOUR Ta ke 1-2 tablets every 12 hours MUCINEX 600 MG ORAL TABLET EXTENDED RELEA SE 12 HOUR GUAIFENESIN Inactive ZOFRAN 4 MG ORAL TABLET 1 tablet every 4 hours ZOFRAN 4 MG ORAL TABLET 917464 ONDANSETRON HCL Inactive ZOFRAN ODT 4 MG ORAL TABLET DISINTEGRATING 1 po q6hr PRN Nausea ZOFRAN ODT 4 MG ORAL TABLET DISINTEGRATING 345629 ONDAN SETRON Inactive CHLORASEPTIC MAX SORE THROAT 15-10 MG MOUTH/THROAT LOZENGE 1 every 2 hours prn CHLORASEPTIC MAX SORE THROAT 15-10 MG MOUTH/THROAT LOZENGE BENZOCAINE-MENTHOL Inactive COMTREX COLD/COUGH DAY/NITE MS 5-2-10-325 MG ORAL 2 caps deja ry 4 hours COMTREX COLD/COUGH DAY/NITE MS 5-2-10-325 MG ORA L [id number] Inactive [facility] TUSSIN COUGH/COLD CF 5-10-100 MG/5ML ORAL LIQUID 2 teasp oons every 4 hours [facility] TUSSIN COUGH/COLD CF 5-10-100 MG/5ML ORAL LI QUID [id number] Inactive IBUPROFEN 800 MG ORAL TABLET take one po Q 8 hours 201 02/01/16 IBUPROFEN 800 MG ORAL TABLET IBUPROFEN Inactive VITAMINS 0.8 MG ORAL TABLET take 1 tab po qday VITAMINS 0.8 MG ORAL TABLET [id number] E-FA Inactive TESSALON PERLES 100 MG ORAL CAPSULE 1 tablet by mouth 3 times da cory TESSALON PERLES 100 MG ORAL CAPSULE 696542 BENZONATATE Inactive AMOXICILLIN 500 MG ORAL CAPSULE 1 tab by mouth 3 times daily 201 02/21/05 AMOXICILLIN 500 MG ORAL CAPSULE 708627 AMOXICILLIN Inactive GUAIFENESIN-CODEINE 100-10 MG/5ML ORAL SYRUP 2 tsp every 6 hours prn GUAIFENESIN-CODEINE 100-10 MG/5ML ORAL SYRUP 647399 GUAIFENESIN-CODEINE Inactive VICKS DAYQUIL SEVERE COLD/FLU TABLET 1 tab every 6 hours prn 201 02/22/17 VICKS DAYQUIL SEVERE COLD/FLU TABLET PHENYLEPHRI [id number] TABS Inactive BACTRIM DS 800-160 MG ORAL TABLET 1 twice a day 05/30 BACTRIM DS 800-160 MG ORAL TABLET 919520 SULFAMETHOXAZOLE-TRIMETHOPRIM Inactiv e PROMETHAZINE HCL 25 MG ORAL TABLET 1 four times a day as nee ded for vomiting PROMETHAZINE HCL 25 MG ORAL TABLET 509477 PROMETHAZINE HCL Inactive ZYRTEC ALLERGY 10 MG ORAL CAPSULE 1 po qd ZYRTEC ALLERGY 10 MG ORAL CAPSULE CETIRIZINE HCL Inactive MACROBID 100 MG ORAL CAPSULE 1 cap by mouth twice daily MACROBID 100 MG ORAL CAPSULE 7163670 NITROFURANTOIN MONOHYD MACRO In active LOMOTIL 2.5-0.025 MG ORAL TABLET 1 to 2 four times a day as needed for diarrhea LOMOTIL 2.5-0.025 MG ORAL TABLET 7784669 DIPHENOXYLATE-ATROPINE Inactive CYCLOBENZAPRINE HCL 10 MG ORAL TABLET 1/2 - 1 tablet b y mouth three times daily as needed for muscle spasm/pain CYCLOBEN ZAPRINE HCL 10 MG ORAL TABLET 335712 CYCLOBENZAPRINE HCL Inactive AMOXICILLIN 500 MG ORAL TABLET 2 tabs twice a day for 10 days 07/09/11 AMOXICILLIN 500 MG ORAL TABLET 613592 AMOXICILLIN I nactive LOMOTIL 2.5-0.025 MG ORAL TABLET 1 to 2 four times a day as needed for diarrhea LOMOTIL 2.5-0.025 MG ORAL TABLET 5432236 DIPHENOXYLATE-ATROPINE Inactive ZOFRAN 4 MG ORAL TABLET 1 TAB PO Q 6 HRS PRN NAUSEA 07/10/15 ZOFRAN 4 MG ORAL TABLET 250445 ONDANSETRON HCL Inactive CITRATE OF MAGNESIA ORAL SOLUTION 1 bottle today for constipatio n CITRATE OF MAGNESIA ORAL SOLUTION 3379475 MAGNESIUM CITR ATE Inactive PROMETHAZINE HCL 12.5 MG ORAL TABLET 1 tablet by mouth every 6 hours as needed for nausea/vomiting PROMETHAZINE HCL 12.5 MG ORA L TABLET 665817 PROMETHAZINE HCL Inactive PREDNISONE 20 MG ORAL TABLET 1 tablet twice daily for 2 days, then 1 tablet once daily for 2 days PREDNISONE 20 MG ORAL TABLET 561211 PREDNISONE Inactive ALPRAZOLAM 0.25 MG ORAL TABLET 1 tablet by mouth every 8 hours as needed for stress ALPRAZOLAM 0.25 MG ORAL TABLET 197468 ALPRA ZOLAM Inactive FLONASE 50 MCG/ACT NASAL SUSPENSION 1 spray each nostr il twice daily for allergies and runny nose until gone FLON ASE 50 MCG/ACT NASAL SUSPENSION 1855753 FLUTICASONE PROPIONATE Inactive PREDNISONE 20 MG ORAL TABLET 1 tablet daily for airway inflammat ion PREDNISONE 20 MG ORAL TABLET 244219 PREDNISONE Arlen ctive NAPROXEN 500 MG ORAL TABLET Take 1 tab BID NAPROXEN 500 MG ORAL TABLET 189440 NAPROXEN Inactive ZOLOFT 50 MG ORAL TABLET 1 tablet by mouth daily 12/08 ZOLOFT 50 MG ORAL TABLET 180197 SERTRALINE HCL Inactive LOMOTIL 2.5-0.025 MG ORAL TABLET 1 tab po four times a day as needed for diarrhea LOMOTIL 2.5-0.025 MG ORAL TABLET 8489040 DIPHENOXYLATE-ATROPINE Inactive CETIRIZINE HCL 10 MG ORAL TABLET 1 po qd PRN Allergies CETIRIZINE HCL 10 MG ORAL TABLET 3570833 CETIRIZINE HCL Inactiv e TUSSIONEX PENNKINETIC ER 10-8 MG/5ML ORAL SUSPENSION E XTENDED RELEASE 5ml po q12hr PRN Cough TUSSIONEX PENNKINETI C ER 10-8 MG/5ML ORAL SUSPENSION EXTENDED RELEASE HYDROCOD POLST-CHLORPHEN POLST I nactive NEXPLANON IMPLANT right arm subcutaneously NEXPLANON IMPLANT ETONOGESTREL IMPL Inactive PROTONIX 40 MG ORAL TABLET DELAYED RELEASE 1 po q a.m. PROTONIX 40 MG ORAL TABLET DELAYED RELEASE 580484 PANTOPRAZOLE SODI UM Inactive CHERATUSSIN AC 100-10 MG/5ML ORAL SYRUP 1 tsp by mouth every 4 hours as needed for cough CHERATUSSIN AC 100-10 MG/5ML ORAL SYRUP 9 54146 GUAIFENESIN-CODEINE Inactive GUAIFENESIN DM 400-20 MG ORAL [...] ORAL TABLET take 1 tab po TID 2011/ 10/13 AMOXICILLIN 500 MG ORAL TABLET 804908 AMOXICILLIN Inactive AMOXICILLIN 500 MG ORAL CAPSULE 1 tab by mouth 3 times daily 201 11/24/09 AMOXICILLIN 500 MG ORAL CAPSULE 512678 AMOXICILLIN Inactive ZITHROMAX 250 MG ORAL TABLET 2 po today, then 1 po q days 2-5 20 09/23/25 ZITHROMAX 250 MG ORAL TABLET 677441 AZITHROMYCIN Ebony ctive ZITHROMAX 250 MG ORAL TABLET 2 po today, then 1 po q days 2-5 20 10/03/08 ZITHROMAX 250 MG ORAL TABLET 545385 AZITHROMYCIN Arlen ctive AZITHROMYCIN 500 MG ORAL TABLET 1 PO q day x 6 days 03/02/23 AZITHROMYCIN 500 MG ORAL TABLET 2308143 AZITHROMYCIN Inactive BACTRIM 400-80 MG ORAL TABLET take one po BID BACTRIM 400- 80 MG ORAL TABLET 646796 SULFAMETHOXAZOLE-TRIMETHOPRIM Inactive AZITHROMYCIN 250 MG ORAL TABLET 2 po qd x 1 day, then 1 po q d x 4 days AZITHROMYCIN 250 MG ORAL TABLET 085344 AZITHROMY ALLISON Inactive PREDNISONE 20 MG ORAL TABLET 2 tabs daily for 3 days, 1 tab daily for 3 days, 1/2 tab daily for 2 days PREDNISONE 20 MG ORAL T ABLET 670834 PREDNISONE Inactive ZITHROMAX 250 MG ORAL TABLET 2 po today, then 1 po q days 2-5 20 06/08/16 ZITHROMAX 250 MG ORAL TABLET 296572 AZITHROMYCIN Arlen ctive FLAGYL 500 MG ORAL TABLET 1 tablet by mouth two times daily 2014 FLAGYL 500 MG ORAL TABLET 433496 METRONIDAZOLE Inacti ve AUGMENTIN 875-125 MG ORAL TABLET 1 tab by mouth twice daily with food AUGMENTIN 875-125 MG ORAL TABLET 074776 AMOXICIL ELSA-POT CLAVULANATE Inactive NAPROXEN 500 MG ORAL TABLET one tab PO BID NAPROXEN 500 MG ORAL TABLET 598995 NAPROXEN Inactive PREDNISONE 20 MG ORAL TABLET 2 tabs daily for 3 days, 1 tab daily for 3 days, 1/2 tab daily for 2 days PREDNISONE 20 MG ORAL T ABLET 831733 PREDNISONE Inactive AZITHROMYCIN 250 MG ORAL TABLET 2 po qd x 1 day, then 1 po q d x 4 days AZITHROMYCIN 250 MG ORAL TABLET 261371 AZITHROMY ALLISON Inactive PREDNISONE 20 MG ORAL TABLET 2 tabs daily for 3 days, 1 tab daily for 3 days, 1/2 tab daily for 2 days PREDNISONE 20 MG ORAL T ABLET 829244 PREDNISONE Inactive ZITHROMAX Z-EMIL 250 MG ORAL TABLET 2 today, then 1 daily for 4 d ays ZITHROMAX Z-EMIL 250 MG ORAL TABLET 720675 AZITHROMYCIN Inactive CEFDINIR 300 MG ORAL CAPSULE 1 po BID x 10 days 12/18 CEFDINIR 300 MG ORAL CAPSULE 014894 CEFDINIR Inactive CEFDINIR 300 MG ORAL CAPSULE 1 po BID x 10 days CEFDINIR 300 MG ORAL CAPSULE 391399 CEFDINIR Inactive PREDNISONE 20 MG ORAL TABLET 2 tabs daily for 3 days, 1 tab daily for 3 days, 1/2 tab daily for 2 days PREDNISONE 20 MG ORAL T ABLET 742254 PREDNISONE Inactive BACTRIM DS 800-160 MG ORAL TABLET 1 tab by mouth twice daily 201 05/02/30 BACTRIM DS 800-160 MG ORAL TABLET 499606 TRIMETHOPRIM-SULFAMETHOXAZOLE Inactive ZITHROMAX Z-EMIL 250 MG ORAL TABLET 2 today, then 1 daily for 4 d ays ZITHROMAX Z-EMIL 250 MG ORAL TABLET 492562 AZITHROMYCIN Inactive TAMIFLU 75 MG ORAL CAPSULE 1 po BID x 5 days 0 TAMIFLU 75 MG ORAL CAPSULE 941594 OSELTAMIVIR PHOSPHATE Inactive CEFDINIR 300 MG ORAL CAPSULE 1 po BID x 10 days 01/03 CEFDINIR 300 MG ORAL CAPSULE 063905 CEFDINIR Inactive ZITHROMAX Z-EMIL 250 MG TABS Take two tablets today and then 1 tablet daily for 4 days ZITHROMAX Z-EMIL 250 MG TABS 504896 AZITHROM YCIN Inactive AMOXICILLIN 875 MG ORAL TABLET 1 tab by mouth twice daily 1 AMOXICILLIN 875 MG ORAL TABLET 397269 AMOXICILLIN Inactive Advance Directives Directive Description Start [...] Unit Range Description Lab Report: CBC, Quant [facility] - Hematology leukocyte count, blood 7.8 10^3/MM^3 [...] Negative Encounters Code Encounter Date Provider Facility CPT-88965 [id number] Vst-Est Level III 18:20:11 CDT Mo lobito Russ [facility] CPT-38251 [id number] Vst-Est Level III 17:21:41 CDT Mo lobito Russ [facility] CPT-56148 [id number] Vst-Est Level IV 13:30:22 C NIC Casper MD [facility] CPT-93493 Level 4 Est. Patient 13:05:26 CDT Myrna Real Bernabe maldonado MD [facility]-40922 [id number] Vst-Est Level IV 20:50:21 C NIC Casper MD [facility] CPT-23998 Level 3 Est. Patient 11:49:34 BLOCK OUT 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 Jessica boyd [facility] CPT-90044 Level 3 Est. Patient 14:55:50 BLOCK OUT 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 Jose Zhong MD [facility] CPT-28386 Level 3 Est. Patient 10:21:41 BLOCK OUT 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 Arie mcqueen MD [facility] CPT-20791 Level 3 Est. Patient 11:35:15 BLOCK OUT 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 Arie mcqueen MD [facility] CPT-65628 Level 3 Est. Patient 15:40:28 CDT Brii Are ll [facility] CPT-48651 Level 3 Est. Patient 16:40:36 CDT Arie mcqueen MD [facility] CPT-15285 Level 4 Est. Patient 15:29:22 BLOCK OUT 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 Arie mcqueen MD [facility] CPT-35469 Level 3 Est. Patient 15:18:16 BLOCK OUT 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 Jono black DO [facility] CPT-81618 Level 4 Est. Patient 12:08:40 BLOCK OUT 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 Brii Are ll [facility] CPT-07827 Level 3 Est. Patient 09:24:42 CDT Brii Are ll [facility] CPT-01400 Level 3 Est. Patient 09:12:56 CDT Arie mcqueen MD [facility] CPT-67455 Level 3 Est. Patient 16:40:54 CDT Jose Zhong MD [facility] CPT-48284 Level 2 Est. Patient 13:01:13 CDT Brii Are ll SOFTWARE ENGINEERING ANALYST [facility] CPT-35247 Level 3 Est. Patient 11:55:30 BLOCK OUT 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 Jono black DO [facility] CPT-18961 Level 3 Est. Patient 09:52:36 BLOCK OUT 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 Brii Are ll SOFTWARE ENGINEERING ANALYST [facility] CPT-43000 Level 3 Est. Patient 16:25:33 BLOCK OUT 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 Rich Rosales MD [facility] CPT-14298 Level 3 Est. Patient 20:33:55 CDT Arie mcqueen MD [facility] CPT-31330 Level 3 Est. Patient 14:18:20 CDT Rich Rosales MD [facility] CPT-40313 Level 4 Est. Patient 09:34:31 CDT Arie mcqueen MD [facility] CPT-18901 Level 3 Est. Patient 09:08:55 BLOCK OUT 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 Liliana vincent MD [facility] CPT-08127 Level 3 Est. Patient 16:44:07 BLOCK OUT 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 Arie mcqueen MD [facility] CPT-22366 Level 3 Est. Patient 10:44:27 CDT Arie mcqueen MD [facility] CPT-05137 Level 3 Est. Patient 08:55:41 CDT Jose Zhong MD [facility] CPT-60565 Level 3 Est. Patient 18:37:31 CDT Liliana vincent MD PhD [facility] CPT-05515 Level 3 Est. Patient 14:28:23 CDT Abelardo HERNANDEZ [facility] CPT-94382 Level 3 Est. Patient 15:18:13 BLOCK OUT 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 Arie mcqueen MD [facility] CPT-77933 Level 3 Est. Patient 10:11:29 BLOCK OUT 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 Arie mcqueen MD [facility] CPT-12528 Level 3 Est. Patient 10:55:57 BLOCK OUT 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 Jono Cheema ee DO [facility] CPT-99759 Level 3 Est. Patient 17:29:05 CDT Arie mcqueen MD [facility] Procedures Code Procedure Name Date Entry Date Standard Desc ription CPT-91690 Ear Wash with irrigation 17:21:41 CDT 07/04 CPT-03001 Nexplanon Removal 15:40:28 CDT CPT-67586 Sono transvag pelvis non OB uterus ovari es cervix - XRAY USE ONLY 08:58:14 BLOCK OUT 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 CPT-97416 UA w micro - LAB USE ONLY 16:04:56 BLOCK OUT 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 2015 CPT-27196 Wet Prep/GEN - LAB USE ONLY 16:04:56 BLOCK OUT 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 20 08/10/29 CPT-73732 First Vx - Ix admin via ID I M or jet injects without counseling by physician 16:57:10 CDT CPT-23132 Fluzone Preservative Free Intramuscular Suspension 16:57:10 CDT CPT-J0696 Rocephin 1000 mg (Ceftriaxone) 11:49:23 CDT CPT-J1040 Depo Medrol 80 mg (Methyl Prednisolone A cetate) 11:49:23 CDT CPT-J1100 Decadron 8mg (Dexamethasone) 11:49:23 CDT 2 CPT-48687 Abx/Therapy Injection 11:49:23 CDT CPT-39878 Abx/Therapy Injection 11:49:23 CDT CPT-97870 Abd compl w upright 09:07:26 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
--- OUTSIDE RECORDS SUMMARY | 2020-03-03 07:58 | XMS REPORT | Clinical Summary ---
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 Unspecified sinusitis (chronic) Other mixed anxiety 300.00 [...] outh daily, for acid reflux PANTOPRAZOLE SODIUM [id number] Active Roseann Crawford Active AMOXICILLIN 875 MG ORAL TABLET 1 tab by mouth twice daily 1 AMOXICILLIN 88486051504 Active Brii Russ APRN Active ALPRAZOLAM 0.25 MG ORAL TABLET 1 tablet by mouth twice a day as needed for stress/anxiety ALPRAZOLAM 76720089534 Active Arie whittington MD Active ESCITALOPRAM OXALATE 10 MG ORAL TABLET take 1 tab po qhs for mod 20 10/04/18 ESCITALOPRAM OXALATE 53596660359 Active Arie Casper MD Active TUSSIONEX PENNKINETIC ER 10-8 MG/5ML ORAL SUSPENSION E XTENDED RELEASE 5ml po q12hr PRN Cough HYDROCOD POLST-CHLORPHEN POLST 5 9213797093 No Longer Active Myrna Roberto MD Active ZITHROMAX Z-EMIL 250 MG TABS Take two tablets today and then 1 tablet daily for 4 days AZITHROMYCIN 24396329930 No Longer Active Flaco Rosales MD Active GUAIFENESIN DM 400-20 MG ORAL TABLET 1 pill by mouth t wice daily, if needed for cough DEXTROMETHORPHAN-GUAIFENESIN 14170603537 No Longer Active Rich Rosales MD Active CEFDINIR 300 MG ORAL CAPSULE 1 po BID x 10 days CEFDINIR 61903289172 No Longer Active Jessica Heaton APRN Active CHERATUSSIN AC 100-10 MG/5ML ORAL SYRUP 1 tsp by mouth every 4 hours as needed for cough GUAIFENESIN-CODEINE 17365081644 No Longe r Active Jessica Heaton APRN Active TAMIFLU 75 MG ORAL CAPSULE 1 po BID x 5 days 0 OSELTAMIVIR PHOSPHATE 46642950901 No Longer Active Jose Zhong MD Activ e ZITHROMAX Z-EMIL 250 MG ORAL TABLET 2 today, then 1 daily for 4 d ays AZITHROMYCIN 21631318402 No Longer Active Arie Casper MD Active PROTONIX 40 MG ORAL TABLET DELAYED RELEASE 1 po q a.m. 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 CETIRIZINE HCL 10 MG ORAL TABLET 1 po qd PRN Allergies CETIRIZINE HCL 71946641485 No Longer Active Brii Russ [employer]ITCH SE[employer]ER Activ e PREDNISONE 20 MG ORAL TABLET 2 tabs daily for 3 days, 1 tab daily for 3 days, 1/2 tab daily for 2 days PREDNISONE 74891181282 No Longer Active Arie Casper MD Active LOMOTIL 2.5-0.025 MG ORAL TABLET 1 tab po four times a day as needed for diarrhea DIPHENOXYLATE-ATROPINE 23839571674 No Lo nger Active Arie Casper MD Active ZOLOFT 50 MG ORAL TABLET 1 tablet by mouth daily 12/08 SERTRALINE HCL 87242615537 No Longer Active Aire Casper MD Ac tive NAPROXEN 500 MG ORAL TABLET Take 1 tab BID NAPR OXEN 19326496032 No Longer Active Arie Casper MD Active CEFDINIR 300 MG ORAL CAPSULE 1 po BID x 10 days CEFDINIR 14854603074 No Longer Active Brii Areboris CABRERA Active PREDNISONE 20 MG ORAL TABLET 1 tablet daily for airway inflammat ion PREDNISONE 77490938789 No Longer Active Brii Russ APRN A ctive CEFDINIR 300 MG ORAL CAPSULE 1 po BID x 10 days CEFDINIR 32767593631 No Longer Active Jono Gagnon DO Active FLONASE 50 MCG/ACT NASAL SUSPENSION 1 spray each nostr il twice daily for allergies and runny nose until gone FLUT ICASONE PROPIONATE 21443910910 No Longer Active Jono Gagnon DO Active ALPRAZOLAM 0.25 MG ORAL TABLET 1 tablet by mouth every 8 hours as needed for stress ALPRAZOLAM 50674917400 No Longer Active Jono Gagnon DO Active ZITHROMAX Z-EMIL 250 MG ORAL TABLET 2 today, then 1 daily for 4 d ays AZITHROMYCIN 30497957663 No Longer Active Arie Casper MD Active PREDNISONE 20 MG ORAL TABLET 2 tabs daily for 3 days, 1 tab daily for 3 days, 1/2 tab daily for 2 days PREDNISONE 27047123476 No Longer Active Brii Russ APRN Active PREDNISONE 20 MG ORAL TABLET 1 tablet twice daily for 2 days, then 1 tablet once daily for 2 days PREDNISONE 43019321216 No Longer Active Brii Russ APRN Active PROMETHAZINE HCL 12.5 MG ORAL TABLET 1 tablet by mouth every 6 hours as needed for nausea/vomiting PROMETHAZINE HCL 39457502675 No L onger Active Jono Gagnon DO Active CITRATE OF MAGNESIA ORAL SOLUTION 1 bottle today for constipatio n MAGNESIUM CITRATE 76481144711 No Longer Active Jono Gagnon DO Active ZOFRAN 4 MG ORAL TABLET 1 TAB PO Q 6 HRS PRN NAUSEA 20 07/10/15 ONDANSETRON HCL 22852434140 No Longer Active Brii Russ APRN Acti ve LOMOTIL 2.5-0.025 MG ORAL TABLET 1 to 2 four times a day as needed for diarrhea DIPHENOXYLATE-ATROPINE 83004758191 No Longer Active January Russ APRN Active AMOXICILLIN 500 MG ORAL TABLET 2 tabs twice a day for 10 days 20 07/09/11 AMOXICILLIN 56628124578 No Longer Active Brii Russ APRN Active CYCLOBENZAPRINE HCL 10 MG ORAL TABLET 1/2 - 1 tablet b y mouth three times daily as needed for muscle spasm/pain CYCLOBENZAPRINE HCL 14874520447 No Longer Active Arie Casper MD Active LOMOTIL 2.5-0.025 MG ORAL TABLET 1 to 2 four times a day as needed for diarrhea DIPHENOXYLATE-ATROPINE 96550516018 No Longer Active Fozia Casper MD Active MACROBID 100 MG ORAL CAPSULE 1 cap by mouth twice daily NITROFURANTOIN MONOHYD MACRO 00030819005 No Longer Active Arie Casper MD Active ZYRTEC ALLERGY 10 MG ORAL CAPSULE 1 po qd CE TIRIZINE HCL 87492050967 No Longer Active Arie Casper MD Active AZITHROMYCIN 250 MG ORAL TABLET 2 po qd x 1 day, then 1 po q d x 4 days AZITHROMYCIN 44261597575 No Longer Active Jillina Marcell salgado [employer] Active PREDNISONE 20 MG ORAL TABLET 2 tabs daily for 3 days, 1 tab daily for 3 days, 1/2 tab daily for 2 days PREDNISONE 00303656662 No Longer Active Jillarlen Heaton [employer]ITCH SE[employer] Active PROMETHAZINE HCL 25 MG ORAL TABLET 1 four times a day as nee ded for vomiting PROMETHAZINE HCL 14853863050 No Longer Active Myrna Roberto MD Active BACTRIM DS 800-160 MG ORAL TABLET 1 twice a day 05/30 SULFAMETHOXAZOLE-TRIMETHOPRIM 19906311676 No Longer Active Myrna Roberto MD Active VICKS DAYQUIL SEVERE COLD/FLU TABLET 1 tab every 6 hours prn 201 02/22/17 [id number] TABS 19637589455 No Longer Active Chris Roberto MD Active GUAIFENESIN-CODEINE 100-10 MG/5ML ORAL SYRUP 2 tsp every 6 hours prn GUAIFENESIN-CODEINE 89549100692 No Longer Active Myrna Roberto MD Active NAPROXEN 500 MG ORAL TABLET one tab PO BID NAPR OXEN 98248523574 No Longer Active Myrna Roberto MD Active AUGMENTIN 875-125 MG ORAL TABLET 1 tab by mouth twice daily with food AMOXICILLIN-POT CLAVULANATE 31792089167 No Longer Act zaid Liliana Estrada MD PhD Active AMOXICILLIN 500 MG ORAL CAPSULE 1 tab by mouth 3 times daily 201 02/21/05 AMOXICILLIN 18402724964 No Longer Active Liliana Estrada MD PhD Active TESSALON PERLES 100 MG ORAL CAPSULE 1 tablet by mouth 3 times da cory BENZONATATE 35053306356 No Longer Active Liliana Estrada MD PhD Active FLAGYL 500 MG ORAL TABLET 1 tablet by mouth two times daily 2014 METRONIDAZOLE 43107022592 No Longer Active Nilam Raida Ac tive ZITHROMAX 250 MG ORAL TABLET 2 po today, then 1 po q days 2-5 20 06/08/16 AZITHROMYCIN 19370162251 No Longer Active Arie Casper MD Active VITAMINS 0.8 MG ORAL TABLET take 1 tab po qday [id number] 00559507896 No Longer Active Arie Casper MD Active IBUPROFEN 800 MG ORAL TABLET take one po Q 8 hours 201 02/01/16 IBUPROFEN 93763678557 No Longer Active Arie Casper MD Acti ve [facility] TUSSIN COUGH/COLD CF 5-10-100 MG/5ML ORAL LIQUID 2 teasp oons every 4 hours [id number] 98678947280 No Longer Active Blaine Casper MD Active COMTREX COLD/COUGH DAY/NITE MS 5-2-10-325 MG ORAL 2 caps deja ry 4 hours [id number] 71637196923 No Longer Active Landon Casper MD Active CHLORASEPTIC MAX SORE THROAT 15-10 MG MOUTH/THROAT LOZENGE 1 every 2 hours prn BENZOCAINE-MENTHOL 96261383535 No Longer Active Arie Casper MD Active PREDNISONE 20 MG ORAL TABLET 2 tabs daily for 3 days, 1 tab daily for 3 days, 1/2 tab daily for 2 days PREDNISONE 23015614401 No Longer Active Jose Zhong MD Active AZITHROMYCIN 250 MG ORAL TABLET 2 po qd x 1 day, then 1 po q d x 4 days AZITHROMYCIN 49756646387 No Longer Active Jose Mcwilliams MD Active ZOFRAN ODT 4 MG ORAL TABLET DISINTEGRATING 1 po q6hr PRN Nausea ONDANSETRON 28037145828 No Longer Active Rich Rosales MD Active ZOFRAN 4 MG ORAL TABLET 1 tablet every 4 hours ONDANSETRON HCL 07651206920 No Longer Active Rich Rosales MD Activ e MUCINEX 600 MG ORAL TABLET EXTENDED RELEASE 12 HOUR Ta ke 1-2 tablets every 12 hours GUAIFENESIN 78440253473 No Longer Active Rich Rosales MD Active BACTRIM 400-80 MG ORAL TABLET take one po BID SULFAMETHOXAZOLE-TRIMETHOPRIM 39508362055 No Longer Active Abelardo HERNANDEZ Active AZITHROMYCIN 500 MG ORAL TABLET 1 PO q day x 6 days 20 03/02/23 AZITHROMYCIN 82969133494 No Longer Active Tin HERNANDEZ Activ e ZITHROMAX 250 MG ORAL TABLET 2 po today, then 1 po q days 2-5 20 10/03/08 AZITHROMYCIN 17216368028 No Longer Active Arie Casper MD Active ZITHROMAX 250 MG ORAL TABLET 2 po today, then 1 po q days 2-5 20 09/23/25 AZITHROMYCIN 10294258365 No Longer Active Arie Casper MD Active AMOXICILLIN 500 MG ORAL CAPSULE 1 tab by mouth 3 times daily 201 11/24/09 AMOXICILLIN 21277815757 No Longer Active Arie Casper MD Active BACTRIM DS 800-160 MG ORAL TABLET 1 tab by mouth twice daily 201 11/03/14 TRIMETHOPRIM-SULFAMETHOXAZOLE 66044119939 No Longer Active Fozia Casper MD Active AMOXICILLIN 500 MG ORAL TABLET take 1 tab po TID 08/05 AMOXICILLIN 30424822130 No Longer Active Arie Casper MD Acti ve VICKS DAYQUIL SEVERE COLD/FLU TABLET 1 tab every 6 hours prn 201 02/22/17 VICKS DAYQUIL SEVERE COLD/FLU TABLET PHENYLEPHRI AV-IT-IO-APAP TABS Inactive NEXPLANON IMPLANT right arm subcutaneously NEXPLANON IMPLANT ETONOGESTREL IMPL Inactive ALPRAZOLAM 0.25 MG ORAL TABLET 1 tablet by mouth every 8 hours as needed for stress ALPRAZOLAM 0.25 MG ORAL TABLET 406728 ALPRA ZOLAM Inactive AMOXICILLIN 500 MG ORAL CAPSULE 1 tab by mouth 3 times daily 201 02/21/05 AMOXICILLIN 500 MG ORAL CAPSULE 407099 AMOXICILLIN Inactive AMOXICILLIN 500 MG ORAL CAPSULE 1 tab by mouth 3 times daily 201 11/24/09 AMOXICILLIN 500 MG ORAL CAPSULE 573016 AMOXICILLIN Inactive BACTRIM 400-80 MG ORAL TABLET take one po BID BACTRIM 400- 80 MG ORAL TABLET 243117 SULFAMETHOXAZOLE-TRIMETHOPRIM Inactive BACTRIM DS 800-160 MG ORAL TABLET 1 tab by mouth twice daily 201 05/02/30 BACTRIM DS 800-160 MG ORAL TABLET 489902 TRIMETHOPRIM-SULFAMETHOXAZOLE Inactive BACTRIM DS 800-160 MG ORAL TABLET 1 twice a day 05/30 BACTRIM DS 800-160 MG ORAL TABLET 173005 SULFAMETHOXAZOLE-TRIMETHOPRIM Inactiv e BACTRIM DS 800-160 MG ORAL TABLET 1 tab by mouth twice daily 201 11/03/14 BACTRIM DS 800-160 MG ORAL TABLET 301336 TRIMETHOPRIM-SULFAMETHOXAZOLE Inactive CHERATUSSIN AC 100-10 MG/5ML ORAL SYRUP 1 tsp by mouth every 4 hours as needed for cough CHERATUSSIN AC 100-10 MG/5ML ORAL SYRUP 9 03511 GUAIFENESIN-CODEINE Inactive CITRATE OF MAGNESIA ORAL SOLUTION 1 bottle today for constipatio n CITRATE OF MAGNESIA ORAL SOLUTION 5268793 MAGNESIUM CITR ATE Inactive CYCLOBENZAPRINE HCL 10 MG ORAL TABLET 1/2 - 1 tablet b y mouth three times daily as needed for muscle spasm/pain CYCLOBEN ZAPRINE HCL 10 MG ORAL TABLET 252274 CYCLOBENZAPRINE HCL Inactive FLAGYL 500 MG ORAL TABLET 1 tablet by mouth two times daily 2014 FLAGYL 500 MG ORAL TABLET 444741 METRONIDAZOLE Inacti ve IBUPROFEN 800 MG ORAL TABLET take one po Q 8 hours 201 02/01/16 IBUPROFEN 800 MG ORAL TABLET 926862 IBUPROFEN Inactive LOMOTIL 2.5-0.025 MG ORAL TABLET 1 to 2 four times a day as needed for diarrhea LOMOTIL 2.5-0.025 MG ORAL TABLET 8993045 DIPHENOXYLATE-ATROPINE Inactive LOMOTIL 2.5-0.025 MG ORAL TABLET 1 to 2 four times a day as needed for diarrhea LOMOTIL 2.5-0.025 MG ORAL TABLET 6494848 DIPHENOXYLATE-ATROPINE Inactive LOMOTIL 2.5-0.025 MG ORAL TABLET 1 tab po four times a day as needed for diarrhea LOMOTIL 2.5-0.025 MG ORAL TABLET 0746159 DIPHENOXYLATE-ATROPINE Inactive MACROBID 100 MG ORAL CAPSULE 1 cap by mouth twice daily MACROBID 100 MG ORAL CAPSULE 6304224 NITROFURANTOIN MONOHYD MACRO In active NAPROXEN 500 [...] days PREDNISONE 20 MG ORAL T ABLET 245160 PREDNISONE Inactive PREDNISONE 20 MG ORAL TABLET 2 tabs daily for 3 days, 1 tab daily for 3 days, 1/2 tab daily for 2 days PREDNISONE 20 MG ORAL T ABLET 388893 PREDNISONE Inactive PREDNISONE 20 MG ORAL TABLET 2 tabs daily for 3 days, 1 tab daily for 3 days, 1/2 tab daily for 2 days PREDNISONE 20 MG ORAL T ABLET 355147 PREDNISONE Inactive PREDNISONE 20 MG ORAL TABLET 2 tabs daily for 3 days, 1 tab daily for 3 days, 1/2 tab daily for 2 days PREDNISONE 20 MG ORAL T ABLET 737949 PREDNISONE Inactive PREDNISONE 20 MG ORAL TABLET 1 tablet daily for airway inflammat ion PREDNISONE 20 MG ORAL TABLET 047828 PREDNISONE [place] ctive PREDNISONE 20 MG ORAL TABLET 1 tablet twice daily for 2 days, then 1 tablet once daily for 2 days PREDNISONE 20 MG ORAL TABLET 118255 PREDNISONE Inactive PROMETHAZINE HCL 12.5 MG ORAL TABLET 1 tablet by mouth every 6 hours as needed for nausea/vomiting PROMETHAZINE HCL 12.5 MG ORA L TABLET 465124 PROMETHAZINE HCL Inactive PROMETHAZINE HCL 25 MG ORAL TABLET 1 four times a day as nee ded for vomiting PROMETHAZINE HCL 25 MG ORAL TABLET 143890 PROMETHAZINE HCL Inactive ZOFRAN 4 MG ORAL TABLET 1 tablet every 4 hours ZOFRAN 4 MG ORAL TABLET 551961 ONDANSETRON HCL Inactive ZOFRAN 4 MG ORAL TABLET 1 TAB PO Q 6 HRS PRN NAUSEA 07/10/15 ZOFRAN 4 MG ORAL TABLET 068209 ONDANSETRON HCL Inactive ZOLOFT 50 MG ORAL TABLET 1 tablet by mouth daily 12/08 ZOLOFT 50 MG ORAL TABLET 532135 SERTRALINE HCL Inactive CETIRIZINE HCL 10 MG ORAL TABLET 1 po qd PRN Allergies CETIRIZINE HCL 10 MG ORAL TABLET 2069289 CETIRIZINE HCL Inactiv e TESSALON PERLES 100 MG ORAL CAPSULE 1 tablet by mouth 3 times da cory TESSALON PERLES 100 MG ORAL CAPSULE 980936 BENZONATATE Inactive AUGMENTIN 875-125 MG ORAL TABLET 1 tab by mouth twice daily with food AUGMENTIN 875-125 MG ORAL TABLET 012427 AMOXICIL ELSA-POT CLAVULANATE Inactive AMOXICILLIN 500 MG ORAL TABLET take 1 tab po TID 08/05 AMOXICILLIN 500 MG ORAL TABLET 882699 AMOXICILLIN Inactive AMOXICILLIN 500 MG ORAL TABLET 2 tabs twice a day for 10 days 20 07/09/11 AMOXICILLIN 500 MG ORAL TABLET 179721 AMOXICILLIN I nactive AZITHROMYCIN 500 MG ORAL TABLET 1 PO q day x 6 days 03/02/23 AZITHROMYCIN 500 MG ORAL TABLET 3660863 AZITHROMYCIN Inactive ZITHROMAX 250 MG ORAL TABLET 2 po today, then 1 po q days 2-5 20 09/23/25 ZITHROMAX 250 MG ORAL TABLET 833322 AZITHROMYCIN Arlen ctive ZITHROMAX 250 MG ORAL TABLET 2 po today, then 1 po q days 2-5 20 10/03/08 ZITHROMAX 250 MG ORAL TABLET 008174 AZITHROMYCIN Arlen ctive ZITHROMAX 250 MG ORAL TABLET 2 po today, then 1 po q days 2-5 20 06/08/16 ZITHROMAX 250 MG ORAL TABLET 872653 AZITHROMYCIN Arlen ctive AZITHROMYCIN 250 MG ORAL TABLET 2 po qd x 1 day, then 1 po q d x 4 days AZITHROMYCIN 250 MG ORAL TABLET 309367 AZITHROMY ALLISON Inactive AZITHROMYCIN 250 MG ORAL TABLET 2 po qd x 1 day, then 1 po q d x 4 days AZITHROMYCIN 250 MG ORAL TABLET 298281 AZITHROMY ALLISON Inactive CEFDINIR 300 MG ORAL CAPSULE 1 po BID x 10 days 12/18 CEFDINIR 300 MG ORAL CAPSULE 20030127 CEFDINIR Inactive CEFDINIR 300 MG ORAL CAPSULE 1 po BID x 10 days CEFDINIR 300 MG ORAL CAPSULE 157273 CEFDINIR Inactive CEFDINIR 300 MG ORAL CAPSULE 1 po BID x 10 days 01/03 CEFDINIR 300 MG ORAL CAPSULE 20030127 CEFDINIR Inactive ZOFRAN ODT 4 MG ORAL TABLET DISINTEGRATING 1 po q6hr PRN Nausea ZOFRAN ODT 4 MG ORAL TABLET DISINTEGRATING 745307 ONDAN SETRON Inactive TAMIFLU 75 MG ORAL CAPSULE 1 po BID x 5 days 0 TAMIFLU 75 MG ORAL CAPSULE 704938 OSELTAMIVIR PHOSPHATE Inactive PROTONIX 40 MG ORAL TABLET DELAYED RELEASE 1 po q a.m. PROTONIX 40 MG ORAL TABLET DELAYED RELEASE 435139 PANTOPRAZOLE SODI UM Inactive ZITHROMAX Z-EMIL 250 MG ORAL TABLET 2 today, then 1 daily for 4 d ays ZITHROMAX Z-EMIL 250 MG ORAL TABLET 065311 AZITHROMYCIN Inactive ZITHROMAX Z-EMIL 250 MG TABS Take two tablets today and then 1 tablet daily for 4 days ZITHROMAX Z-EMIL 250 MG TABS 820201 AZITHROM YCIN Inactive ZITHROMAX Z-EMIL 250 MG ORAL TABLET 2 today, then 1 daily for 4 d ays ZITHROMAX Z-EMIL 250 MG ORAL TABLET 953575 AZITHROMYCIN Inactive FLONASE 50 MCG/ACT NASAL SUSPENSION 1 spray each nostr il twice daily for allergies and runny nose until gone FLON ASE 50 MCG/ACT NASAL SUSPENSION 3819213 FLUTICASONE PROPIONATE Inactive MUCINEX 600 MG ORAL TABLET EXTENDED RELEASE 12 HOUR Ta ke 1-2 tablets every 12 hours MUCINEX 600 MG ORAL TABLET EXTENDED RELEA SE 12 HOUR GUAIFENESIN Inactive COMTREX COLD/COUGH DAY/NITE MS 5-2-10-325 MG ORAL 2 caps deja ry 4 hours COMTREX COLD/COUGH DAY/NITE MS 5-2-10-325 MG ORA L [id number] Inactive GUAIFENESIN-CODEINE 100-10 MG/5ML ORAL SYRUP 2 tsp every 6 hours prn GUAIFENESIN-CODEINE 100-10 MG/5ML ORAL SYRUP 375583 GUAIFENESIN-CODEINE Inactive VITAMINS 0.8 MG ORAL TABLET take 1 tab po qday VITAMINS 0.8 MG ORAL TABLET [id number] E-FA Inactive [facility] TUSSIN COUGH/COLD CF 5-10-100 MG/5ML ORAL LIQUID 2 teasp oons every 4 hours [facility] TUSSIN COUGH/COLD CF 5-10-100 MG/5ML ORAL LI QUID [id number] Inactive ZYRTEC ALLERGY 10 MG ORAL CAPSULE [...] Negative Encounters Code Encounter Date Provider Facility CPT-76524 [id number] Vst-Est Level III 17:21:41 CDT Me lobito Russ [facility]-85759 35639-Vui Vst-Est Level IV 13:30:22 C NIC Casper MD [facility]-13451 Level 4 Est. Patient 13:05:26 CDT Myrna maldonado MD [facility]-00889 [id number] Vst-Est Level IV 20:50:21 C NIC Casper MD [facility] CPT-46711 Level 3 Est. Patient 11:49:34 MATERIAL MANAGER Jessica boyd [facility]-91825 Level 3 Est. Patient 14:55:50 MATERIAL MANAGER Jose Zhong MD [facility]-45638 Level 3 Est. Patient 10:21:41 MATERIAL MANAGER Arie mcqueen MD [facility]-16436 Level 3 Est. Patient 11:35:15 MATERIAL MANAGER Arie mcqueen MD [facility]-60735 Level 3 Est. Patient 15:40:28 CDT Brii escalante [facility]-30113 Level 3 Est. Patient 16:40:36 CDT Arie mcqueen MD [facility] CPT-80866 Level 4 Est. Patient 15:29:22 MATERIAL MANAGER Arie mcqueen MD [facility] CPT-82937 Level 3 Est. Patient 15:18:16 MATERIAL MANAGER Jono black [facility] CPT-54639 Level 4 Est. Patient 12:08:40 MATERIAL MANAGER Brii Are [facility] CPT-96772 Level 3 Est. Patient 09:24:42 CDT Brii Are [facility] CPT-25130 Level 3 Est. Patient 09:12:56 CDT Arie mcqueen MD [facility] CPT-69882 Level 3 Est. Patient 16:40:54 CDT Jose Zhong MD [facility]-42534 Level 2 Est. Patient 13:01:13 CDT Brii Are [facility] CPT-39304 Level 3 Est. Patient 11:55:30 MATERIAL MANAGER Jono black [facility] CPT-45349 Level 3 Est. Patient 09:52:36 MATERIAL MANAGER Brii Are [facility] CPT-32272 Level 3 Est. Patient 16:25:33 MATERIAL MANAGER Rich Rosales MD [facility] CPT-88634 Level 3 Est. Patient 20:33:55 CDT Arie mcqueen MD [facility] CPT-10918 Level 3 Est. Patient 14:18:20 CDT Rich Rosales MD [facility] CPT-81427 Level 4 Est. Patient 09:34:31 CDT Arie mcqueen MD [facility]-22182 Level 3 Est. Patient 09:08:55 MATERIAL MANAGER Liliana vincent MD PhD [facility] CPT-59217 Level 3 Est. Patient 16:44:07 MATERIAL MANAGER Arie mcqueen MD [facility] CPT-23242 Level 3 Est. Patient 10:44:27 CDT Arie mcqueen MD [facility] CPT-81716 Level 3 Est. Patient 08:55:41 CDT Jose Zhong MD [facility] CPT-78925 Level 3 Est. Patient 18:37:31 CDT Liliana vincent MD PhD [facility] CPT-36266 Level 3 Est. Patient 14:28:23 CDT Abelardo marroquin PA [facility] CPT-00490 Level 3 Est. Patient 15:18:13 MATERIAL MANAGER Arie mcqueen MD [facility] CPT-80359 Level 3 Est. Patient 10:11:29 MATERIAL MANAGER Arie mcqueen MD [facility] CPT-60319 Level 3 Est. Patient 10:55:57 MATERIAL MANAGER Jono black DO [facility] CPT-63932 Level 3 Est. Patient 17:29:05 CDT Arie mcqueen MD [facility] Procedures Code Procedure Name Date Entry Date Standard Desc ription CPT-96089 Ear Wash with irrigation 17:21:41 CDT 07/04 CPT-49617 Nexplanon Removal 15:40:28 CDT CPT-39043 Sono transvag pelvis non OB uterus ovari es cervix - XRAY USE ONLY 08:58:14 MATERIAL MANAGER CPT-63956 UA w micro - LAB USE ONLY 16:04:56 MATERIAL MANAGER 2015 CPT-93834 Wet Prep/GEN - LAB USE ONLY 16:04:56 MATERIAL MANAGER 20 08/10/29 CPT-66325 First Vx - Ix admin via ID I M or jet injects without counseling by physician 16:57:10 CDT CPT-76799 Fluzone Preservative Free Intramuscular Suspension 16:57:10 CDT CPT-J0696 Rocephin 1000 mg (Ceftriaxone) 11:49:23 CDT CPT-J1040 Depo Medrol 80 mg (Methyl Prednisolone A cetate) 11:49:23 CDT CPT-J1100 Decadron 8mg (Dexamethasone) 11:49:23 CDT 2 CPT-22606 Abx/Therapy Injection 11:49:23 CDT CPT-68080 Abx/Therapy Injection 11:49:23 CDT CPT-91828 Abd compl w upright 09:07:26 MATERIAL MANAGER CPT-66706 Ear Wash 16:12:47 MATERIAL MANAGER CPT-OV Office Visit 11:12:01 CDT CPT-OV Office Visit 15:30:23 CDT CPT-34265 Sono pelvis non OB uterus ovaries cervix 15:50:44 CDT CPT-01763 Hand comp min 3V 16:42:32 CDT CPT-67972 Abd compl w upright 12:17:01 CDT CPT-03567 Nexplanon Placement 15:07:39 MATERIAL MANAGER CPT-54191 Removal of IUD 15:07:39 MATERIAL MANAGER CPT-25431 TB Tubersol 12:09:32 CDT CPT-13593 TB Tubersol 13:55:43 CDT
--- OUTSIDE RECORDS SUMMARY | 2020-03-03 07:58 | XMS REPORT | Clinical Summary ---
Author Author Admin, Diamante Marcelo Organization [employer] Address Unknown Phone Unavailable Allergies, Adverse Reactions, [...] respiratory manifestations Sinusitis 473.9 Active Jessica Heaton [employer] Unspecified sinusitis (chronic) Other mixed anxiety 300.00 [...] Cerumen impaction, bilateral 380.4 Active Brii Russ [employer] Impacted cerumen Tonsillar enlargement 474.11 Active Brii Russ APRN Hypertrophy of tonsils alone Influenza Vaccination for Prophylaxis V04.81 Active Brii Russ [employer] Need for prophylactic vaccin ation and inoculation against influenza Submandibular lymph node 785.6 Active Brii Are ll [employer] Enlargement of lymph nodes BREAST CANCER ICD-V16.3 [...] MG ORAL CAPSULE 1 po tid CEPHALEXIN 816055 12483 Active Brii Russ APRN Active PROTONIX 40 MG ORAL TABLET DELAYED RELEASE 1 pill by m outh daily, for acid reflux PANTOPRAZOLE SODIUM 91998110384 Active Roseann Crawford Active AMOXICILLIN 875 MG ORAL TABLET 1 tab by mouth twice daily 1 AMOXICILLIN 69768163064 No Longer Active Brii Arell [employer] Active ALPRAZOLAM 0.25 MG ORAL TABLET 1 tablet by mouth twice a day as needed for stress/anxiety ALPRAZOLAM 69070231023 Active Arie whittington MD Active ESCITALOPRAM OXALATE 10 MG ORAL TABLET take 1 tab po qhs for mod 20 10/04/18 ESCITALOPRAM OXALATE 59055959114 Active Arie Casper MD Active TUSSIONEX PENNKINETIC ER 10-8 MG/5ML ORAL SUSPENSION E XTENDED RELEASE 5ml po q12hr PRN Cough HYDROCOD POLST-CHLORPHEN POLST 5 2722781982 No Longer Active Myrna Roberto MD Active ZITHROMAX Z-EMIL 250 MG TABS Take two tablets today and then 1 tablet daily for 4 days AZITHROMYCIN 86250939350 No Longer Active Flaco Rosales MD Active GUAIFENESIN DM 400-20 MG ORAL TABLET 1 pill by mouth t wice daily, if needed for cough DEXTROMETHORPHAN-GUAIFENESIN 59394246534 No Longer Active Rich Rosales MD Active CEFDINIR 300 MG ORAL CAPSULE 1 po BID x 10 days CEFDINIR 94311204689 No Longer Active Jessica Heaton APRN Active CHERATUSSIN AC 100-10 MG/5ML ORAL SYRUP 1 tsp by mouth every 4 hours as needed for cough GUAIFENESIN-CODEINE 04646993738 No Longe r Active Jessica Heaton APRN Active TAMIFLU 75 MG ORAL CAPSULE 1 po BID x 5 days 0 OSELTAMIVIR PHOSPHATE 91125448718 No Longer Active Jose Zhong MD Activ e ZITHROMAX Z-EMIL 250 MG ORAL TABLET 2 today, then 1 daily for 4 d ays AZITHROMYCIN 48649223015 No Longer Active Arie Casper MD Active PROTONIX 40 MG ORAL TABLET DELAYED RELEASE 1 po q a.m. PANTOPRAZOLE SODIUM 72253714826 No Longer Active Arie Casper MD Active BACTRIM DS 800-160 MG ORAL TABLET 1 tab by mouth twice daily 201 05/02/30 TRIMETHOPRIM-SULFAMETHOXAZOLE 73785081467 No Longer Active R [facility] Active NEXPLANON IMPLANT right arm subcutaneously ETONOGESTREL IMPL 75260049004 No Longer Active Brii Russ [employer]ING [employer] Active TUSSIONEX PENNKINETIC ER 10-8 MG/5ML ORAL SUSPENSION E XTENDED RELEASE 5ml po q12hr PRN Cough HYDROCOD POLST-CHLORPHEN POLST 5 8463286092 No Longer Active Brii Russ ENG[employer]ING [employer]GER [employer] Active CETIRIZINE HCL 10 MG ORAL TABLET 1 po qd PRN Allergies CETIRIZINE HCL 86373251877 No Longer Active Brii Russ [employer]ING [employer] Activ e PREDNISONE 20 MG ORAL TABLET 2 tabs daily for 3 days, 1 tab daily for 3 days, 1/2 tab daily for 2 days PREDNISONE 60834506642 No Longer Active Arie Casper MD Active LOMOTIL 2.5-0.025 MG ORAL TABLET 1 tab po four times a day as needed for diarrhea DIPHENOXYLATE-ATROPINE 33711869140 No Lo nger Active Arie Casper MD Active ZOLOFT 50 MG ORAL TABLET 1 tablet by mouth daily 12/08 SERTRALINE HCL 06916039032 No Longer Active Arie Casper MD Ac tive NAPROXEN 500 MG ORAL TABLET Take 1 tab BID NAPR OXEN 60234157129 No Longer Active Arie Casper MD Active CEFDINIR 300 MG ORAL CAPSULE 1 po BID x 10 days CEFDINIR 44149347724 No Longer Active Brii Russ ENG[employer]ERING MA[employer]GER [employer] Active PREDNISONE 20 MG ORAL TABLET 1 tablet daily for airway inflammat ion PREDNISONE 95167251267 No Longer Active Brii Russ APRN A ctive CEFDINIR 300 MG ORAL CAPSULE 1 po BID x 10 days CEFDINIR 77480634165 No Longer Active Jono Gagnon DO Active FLONASE 50 MCG/ACT NASAL SUSPENSION 1 spray each nostr il twice daily for allergies and runny nose until gone FLUT ICASONE PROPIONATE 88508392644 No Longer Active Jono Gagnon DO Active ALPRAZOLAM 0.25 MG ORAL TABLET 1 tablet by mouth every 8 hours as needed for stress ALPRAZOLAM 15636596335 No Longer Active Jono Gagnon DO Active ZITHROMAX Z-EMIL 250 MG ORAL TABLET 2 today, then 1 daily for 4 d ays AZITHROMYCIN 41647396545 No Longer Active Arie Casper MD Active PREDNISONE 20 MG ORAL TABLET 2 tabs daily for 3 days, 1 tab daily for 3 days, 1/2 tab daily for 2 days PREDNISONE 78238960151 No Longer Active Brii Russ ENG[employer]ERING MA[employer]GER [employer] Active PREDNISONE 20 MG ORAL TABLET 1 tablet twice daily for 2 days, then 1 tablet once daily for 2 days PREDNISONE 56665036094 No Longer Active Brii Russ ENG[employer]ERING MA[employer]GER [employer] Active PROMETHAZINE HCL 12.5 MG ORAL TABLET 1 tablet by mouth every 6 hours as needed for nausea/vomiting PROMETHAZINE HCL 99888216919 No L onger Active Jono Gagnon DO Active CITRATE OF MAGNESIA ORAL SOLUTION 1 bottle today for constipatio n MAGNESIUM CITRATE 55227163805 No Longer Active Jono Gagnon DO Active ZOFRAN 4 MG ORAL TABLET 1 TAB PO Q 6 HRS PRN NAUSEA 07/10/15 ONDANSETRON HCL 99012578695 No Longer Active Brii Russ APRN Acti ve LOMOTIL 2.5-0.025 MG ORAL TABLET 1 to 2 four times a day as needed for diarrhea DIPHENOXYLATE-ATROPINE 40437639214 No Longer Active January Russ APRN Active AMOXICILLIN 500 MG ORAL TABLET 2 tabs twice a day for 10 days 20 07/09/11 AMOXICILLIN 75341131536 No Longer Active Brii Russ APRN Active CYCLOBENZAPRINE HCL 10 MG ORAL TABLET 1/2 - 1 tablet b y mouth three times daily as needed for muscle spasm/pain CYCLOBENZAPRINE HCL 61567478943 No Longer Active Arie Casper MD Active LOMOTIL 2.5-0.025 MG ORAL TABLET 1 to 2 four times a day as needed for diarrhea DIPHENOXYLATE-ATROPINE 01130480643 No Longer Active Fozia Casper MD Active MACROBID 100 MG ORAL CAPSULE 1 cap by mouth twice daily NITROFURANTOIN MONOHYD MACRO 70470678071 No Longer Active Arie Casper MD Active ZYRTEC ALLERGY 10 MG ORAL CAPSULE 1 po qd CE TIRIZINE HCL 46457537608 No Longer Active Arie Casper MD Active AZITHROMYCIN 250 MG ORAL TABLET 2 po qd x 1 day, then 1 po q d x 4 days AZITHROMYCIN 05943685706 No Longer Active Waynellarlen 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 PREDNISONE 20 MG ORAL TABLET 2 tabs daily for 3 days, 1 tab daily for 3 days, 1/2 tab daily for 2 days PREDNISONE 66017680479 No Longer Active Jillina Fradeepl ENGINEERING MA[employer]GER [employer] Active PROMETHAZINE HCL 25 MG ORAL TABLET 1 four times a day as nee ded for vomiting PROMETHAZINE HCL 46950541906 No Longer Active Myrna Roberto MD Active BACTRIM DS 800-160 MG ORAL TABLET 1 twice a day 05/30 SULFAMETHOXAZOLE-TRIMETHOPRIM 74668184213 No Longer Active Myrna Roberto MD Active VICKS DAYQUIL SEVERE COLD/FLU TABLET 1 tab every 6 hours prn 201 02/22/17 [id number] TABS 24948386331 No Longer Active Chris Roberto MD Active GUAIFENESIN-CODEINE 100-10 MG/5ML ORAL SYRUP 2 tsp every 6 hours prn GUAIFENESIN-CODEINE 34377471099 No Longer Active Myrna Roberto MD Active NAPROXEN 500 MG ORAL TABLET one tab PO BID NAPR OXEN 39248410275 No Longer Active Myrna Roberto MD Active AUGMENTIN 875-125 MG ORAL TABLET 1 tab by mouth twice daily with food AMOXICILLIN-POT CLAVULANATE 41492752521 No Longer Act zaid Liliana Estrada MD PhD Active AMOXICILLIN 500 MG ORAL CAPSULE 1 tab by mouth 3 times daily 201 02/21/05 AMOXICILLIN 04344360579 No Longer Active Liliana Estrada MD PhD Active TESSALON PERLES 100 MG ORAL CAPSULE 1 tablet by mouth 3 times da cory BENZONATATE 40596329298 No Longer Active Liliana Estrada MD PhD Active FLAGYL 500 MG ORAL TABLET 1 tablet by mouth two times daily 2014 METRONIDAZOLE 56196128218 No Longer Active Nilam Doran tive ZITHROMAX 250 MG ORAL TABLET 2 po today, then 1 po q days 2-5 20 06/08/16 AZITHROMYCIN 23856404765 No Longer Active Arie Casper MD Active VITAMINS 0.8 MG ORAL TABLET take 1 tab po qday [id number] 07822958921 No Longer Active Arie Casper MD Active IBUPROFEN 800 MG ORAL TABLET take one po Q 8 hours 201 02/01/16 IBUPROFEN 80053513962 No Longer Active Arie Casper MD Acti ve [facility] TUSSIN COUGH/COLD CF 5-10-100 MG/5ML ORAL LIQUID 2 teasp oons every 4 hours [id number] 46840468595 No Longer Active Blaine Casper MD Active COMTREX COLD/COUGH DAY/NITE MS 5-2-10-325 MG ORAL 2 caps deja ry 4 hours [id number] 05382355544 No Longer Active Landon Casper MD Active CHLORASEPTIC MAX SORE THROAT 15-10 MG MOUTH/THROAT LOZENGE 1 every 2 hours prn BENZOCAINE-MENTHOL 39246977289 No Longer Active Arie Casper MD Active PREDNISONE 20 MG ORAL TABLET 2 tabs daily for 3 days, 1 tab daily for 3 days, 1/2 tab daily for 2 days PREDNISONE 12354928786 No Longer Active Jose Zhong MD Active AZITHROMYCIN 250 MG ORAL TABLET 2 po qd x 1 day, then 1 po q d x 4 days AZITHROMYCIN 77136836078 No Longer Active Jose Mcwilliams MD Active ZOFRAN ODT 4 MG ORAL TABLET DISINTEGRATING 1 po q6hr PRN Nausea ONDANSETRON 95048984694 No Longer Active Rich Rosales MD Active ZOFRAN 4 MG ORAL TABLET 1 tablet every 4 hours ONDANSETRON HCL 08294142798 No Longer Active Rich Rosales MD Activ e MUCINEX 600 MG ORAL TABLET EXTENDED RELEASE 12 HOUR Ta ke 1-2 tablets every 12 hours GUAIFENESIN 96565160235 No Longer Active Rich Rosales MD Active BACTRIM 400-80 MG ORAL TABLET take one po BID SULFAMETHOXAZOLE-TRIMETHOPRIM 88605382943 No Longer Active Abelardo HERNANDEZ Active AZITHROMYCIN 500 MG ORAL TABLET 1 PO q day x 6 days 20 03/02/23 AZITHROMYCIN 98270297926 No Longer Active Tin HERNANDEZ Activ e ZITHROMAX 250 MG ORAL TABLET 2 po today, then 1 po q days 2-5 20 10/03/08 AZITHROMYCIN 44985970837 No Longer Active Arie Casper MD Active ZITHROMAX 250 MG ORAL TABLET 2 po today, then 1 po q days 2-5 20 09/23/25 AZITHROMYCIN 48830965205 No Longer Active Arie Casper MD Active AMOXICILLIN 500 MG ORAL CAPSULE 1 tab by mouth 3 times daily 201 11/24/09 AMOXICILLIN 23594886646 No Longer Active Arie Casper MD Active BACTRIM DS 800-160 MG ORAL TABLET 1 tab by mouth twice daily 201 11/03/14 TRIMETHOPRIM-SULFAMETHOXAZOLE 68159551454 No Longer Active Fozia Casper MD Active AMOXICILLIN 500 MG ORAL TABLET take 1 tab po TID 08/05 AMOXICILLIN 11341623083 No Longer Active Arie Casper MD Acti ve BACTRIM DS 800-160 MG ORAL TABLET 1 tab by mouth twice daily 201 11/03/14 BACTRIM DS 800-160 MG ORAL TABLET 373106 TRIMETHOPRIM-SULFAMETHOXAZOLE Inactive MUCINEX 600 MG ORAL TABLET EXTENDED RELEASE 12 HOUR Ta ke 1-2 tablets every 12 hours MUCINEX 600 MG ORAL TABLET EXTENDED RELEA SE 12 HOUR GUAIFENESIN Inactive ZOFRAN 4 MG ORAL TABLET 1 tablet every 4 hours ZOFRAN 4 MG ORAL TABLET 190000 ONDANSETRON HCL Inactive ZOFRAN ODT 4 MG ORAL TABLET DISINTEGRATING 1 po q6hr PRN Nausea ZOFRAN ODT 4 MG ORAL TABLET DISINTEGRATING 830354 ONDAN SETRON Inactive CHLORASEPTIC MAX SORE THROAT 15-10 MG MOUTH/THROAT LOZENGE 1 every 2 hours prn CHLORASEPTIC MAX SORE THROAT 15-10 MG MOUTH/THROAT LOZENGE BENZOCAINE-MENTHOL Inactive COMTREX COLD/COUGH DAY/NITE MS 5-2-10-325 MG ORAL 2 caps deja ry 4 hours COMTREX COLD/COUGH DAY/NITE MS 5-2-10-325 MG ORA L [id number] Inactive [facility] TUSSIN COUGH/COLD CF 5-10-100 MG/5ML ORAL LIQUID 2 teasp oons every 4 hours [facility] TUSSIN COUGH/COLD CF 5-10-100 MG/5ML ORAL LI QUID [id number] Inactive IBUPROFEN 800 MG ORAL TABLET take one po Q 8 hours 201 02/01/16 IBUPROFEN 800 MG ORAL TABLET IBUPROFEN Inactive VITAMINS 0.8 MG ORAL TABLET take 1 tab po qday VITAMINS 0.8 MG ORAL TABLET [id number]-FA Inactive TESSALON PERLES 100 MG ORAL CAPSULE 1 tablet by mouth 3 times da cory TESSALON PERLES 100 MG ORAL CAPSULE 308628 BENZONATATE Inactive AMOXICILLIN 500 MG ORAL CAPSULE 1 tab by mouth 3 times daily 201 02/21/05 AMOXICILLIN 500 MG ORAL CAPSULE 492186 AMOXICILLIN Inactive GUAIFENESIN-CODEINE 100-10 MG/5ML ORAL SYRUP 2 tsp every 6 hours prn GUAIFENESIN-CODEINE 100-10 MG/5ML ORAL SYRUP 893010 GUAIFENESIN-CODEINE Inactive VICKS DAYQUIL SEVERE COLD/FLU TABLET 1 tab every 6 hours prn 201 02/22/17 VICKS DAYQUIL SEVERE COLD/FLU TABLET PHENYLEPHRI [id number]-[id number] TABS Inactive BACTRIM DS 800-160 MG ORAL TABLET 1 twice a day 05/30 BACTRIM DS 800-160 MG ORAL TABLET 687029 SULFAMETHOXAZOLE-TRIMETHOPRIM Inactiv e PROMETHAZINE HCL 25 MG ORAL TABLET 1 four times a day as nee ded for vomiting PROMETHAZINE HCL 25 MG ORAL TABLET 996213 PROMETHAZINE HCL Inactive ZYRTEC ALLERGY 10 MG ORAL CAPSULE 1 po qd ZYRTEC ALLERGY 10 MG ORAL CAPSULE CETIRIZINE HCL Inactive MACROBID 100 MG ORAL CAPSULE 1 cap by mouth twice daily MACROBID 100 MG ORAL CAPSULE 4312526 NITROFURANTOIN MONOHYD MACRO In active LOMOTIL 2.5-0.025 MG ORAL TABLET 1 to 2 four times a day as needed for diarrhea LOMOTIL 2.5-0.025 MG ORAL TABLET 0350163 DIPHENOXYLATE-ATROPINE Inactive CYCLOBENZAPRINE HCL 10 MG ORAL TABLET 1/2 - 1 tablet b y mouth three times daily as needed for muscle spasm/pain CYCLOBEN ZAPRINE HCL 10 MG ORAL TABLET 533989 CYCLOBENZAPRINE HCL Inactive AMOXICILLIN 500 MG ORAL TABLET 2 tabs twice a day for 10 days 07/09/11 AMOXICILLIN 500 MG ORAL TABLET 096504 AMOXICILLIN I nactive LOMOTIL 2.5-0.025 MG ORAL TABLET 1 to 2 four times a day as needed for diarrhea LOMOTIL 2.5-0.025 MG ORAL TABLET 5351515 DIPHENOXYLATE-ATROPINE Inactive ZOFRAN 4 MG ORAL TABLET 1 TAB PO Q 6 HRS PRN NAUSEA 07/10/15 ZOFRAN 4 MG ORAL TABLET 302742 ONDANSETRON HCL Inactive CITRATE OF MAGNESIA ORAL SOLUTION 1 bottle today for constipatio n CITRATE OF MAGNESIA ORAL SOLUTION 1209493 MAGNESIUM CITR ATE Inactive PROMETHAZINE HCL 12.5 MG ORAL TABLET 1 tablet by mouth every 6 hours as needed for nausea/vomiting PROMETHAZINE HCL 12.5 MG ORA L TABLET 382879 PROMETHAZINE HCL Inactive PREDNISONE 20 MG ORAL TABLET 1 tablet twice daily for 2 days, then 1 tablet once daily for 2 days PREDNISONE 20 MG ORAL TABLET 985370 PREDNISONE Inactive ALPRAZOLAM 0.25 MG ORAL TABLET 1 tablet by mouth every 8 hours as needed for stress ALPRAZOLAM 0.25 MG ORAL TABLET 834444 ALPRA ZOLAM Inactive FLONASE 50 MCG/ACT NASAL SUSPENSION 1 spray each nostr il twice daily for allergies and runny nose until gone FLON ASE 50 MCG/ACT NASAL SUSPENSION 1457905 FLUTICASONE PROPIONATE Inactive PREDNISONE 20 MG ORAL TABLET 1 tablet daily for airway inflammat ion PREDNISONE 20 MG ORAL TABLET 306157 PREDNISONE Arlen ctive NAPROXEN 500 MG ORAL TABLET Take 1 tab BID NAPROXEN 500 MG ORAL TABLET 114600 NAPROXEN Inactive ZOLOFT 50 MG ORAL TABLET 1 tablet by mouth daily 12/08 ZOLOFT 50 MG ORAL TABLET 062600 SERTRALINE HCL Inactive LOMOTIL 2.5-0.025 MG ORAL TABLET 1 tab po four times a day as needed for diarrhea LOMOTIL 2.5-0.025 MG ORAL TABLET 3257535 DIPHENOXYLATE-ATROPINE Inactive CETIRIZINE HCL 10 MG ORAL TABLET 1 po qd PRN Allergies CETIRIZINE HCL 10 MG ORAL TABLET 3377291 CETIRIZINE HCL Inactiv e TUSSIONEX PENNKINETIC ER 10-8 MG/5ML ORAL SUSPENSION E XTENDED RELEASE 5ml po q12hr PRN Cough TUSSIONEX PENNKINETI C ER 10-8 MG/5ML ORAL SUSPENSION EXTENDED RELEASE HYDROCOD POLST-CHLORPHEN POLST I nactive NEXPLANON IMPLANT right arm subcutaneously NEXPLANON IMPLANT ETONOGESTREL IMPL Inactive PROTONIX 40 MG ORAL TABLET DELAYED RELEASE 1 po q a.m. PROTONIX 40 MG ORAL TABLET DELAYED RELEASE 377202 PANTOPRAZOLE SODI UM Inactive CHERATUSSIN AC 100-10 MG/5ML ORAL SYRUP 1 tsp by mouth every 4 hours as needed for cough CHERATUSSIN AC 100-10 MG/5ML ORAL SYRUP 9 54739 GUAIFENESIN-CODEINE Inactive GUAIFENESIN DM 400-20 MG ORAL [...] 2011/ 10/13 AMOXICILLIN 500 MG ORAL TABLET 540322 AMOXICILLIN Inactive AMOXICILLIN 500 MG ORAL CAPSULE 1 tab by mouth 3 times daily 201 11/24/09 AMOXICILLIN 500 MG ORAL CAPSULE 830608 AMOXICILLIN Inactive ZITHROMAX 250 MG ORAL TABLET 2 po today, then 1 po q days 2-5 20 09/23/25 ZITHROMAX 250 MG ORAL TABLET 818291 AZITHROMYCIN [place] ctive ZITHROMAX 250 MG ORAL TABLET 2 po today, then 1 po q days 2-5 20 10/03/08 ZITHROMAX 250 MG ORAL TABLET 613143 AZITHROMYCIN [place] ctive AZITHROMYCIN 500 MG ORAL TABLET 1 PO q day x 6 days 03/02/23 AZITHROMYCIN 500 MG ORAL TABLET 7182899 AZITHROMYCIN Inactive BACTRIM 400-80 MG ORAL TABLET take one po BID BACTRIM 400- 80 MG ORAL TABLET 030072 SULFAMETHOXAZOLE-TRIMETHOPRIM Inactive AZITHROMYCIN 250 MG ORAL TABLET 2 po qd x 1 day, then 1 po q d x 4 days AZITHROMYCIN 250 MG ORAL TABLET 309574 AZITHROMY ALLISON Inactive PREDNISONE 20 MG ORAL TABLET 2 tabs daily for 3 days, 1 tab daily for 3 days, 1/2 tab daily for 2 days PREDNISONE 20 MG ORAL T ABLET 933754 PREDNISONE Inactive ZITHROMAX 250 MG ORAL TABLET 2 po today, then 1 po q days 2-5 20 06/08/16 ZITHROMAX 250 MG ORAL TABLET 502099 AZITHROMYCIN Arlen ctive FLAGYL 500 MG ORAL TABLET 1 tablet by mouth two times daily 2014 FLAGYL 500 MG ORAL TABLET 119290 METRONIDAZOLE Inacti ve AUGMENTIN 875-125 MG ORAL TABLET 1 tab by mouth twice daily with food AUGMENTIN 875-125 MG ORAL TABLET 945206 AMOXICIL ELSA-POT CLAVULANATE Inactive NAPROXEN 500 MG ORAL TABLET one tab PO BID NAPROXEN 500 MG ORAL TABLET 558547 NAPROXEN Inactive PREDNISONE 20 MG ORAL TABLET 2 tabs daily for 3 days, 1 tab daily for 3 days, 1/2 tab daily for 2 days PREDNISONE 20 MG ORAL T ABLET 132407 PREDNISONE Inactive AZITHROMYCIN 250 MG ORAL TABLET 2 po qd x 1 day, then 1 po q d x 4 days AZITHROMYCIN 250 MG ORAL TABLET 852453 AZITHROMY ALLISON Inactive PREDNISONE 20 MG ORAL TABLET 2 tabs daily for 3 days, 1 tab daily for 3 days, 1/2 tab daily for 2 days PREDNISONE 20 MG ORAL T ABLET 409993 PREDNISONE Inactive ZITHROMAX Z-EMIL 250 MG ORAL TABLET 2 today, then 1 daily for 4 d ays ZITHROMAX Z-EMIL 250 MG ORAL TABLET 362658 AZITHROMYCIN Inactive CEFDINIR 300 MG ORAL CAPSULE 1 po BID x 10 days 12/18 CEFDINIR 300 MG ORAL CAPSULE 548470 CEFDINIR Inactive CEFDINIR 300 MG ORAL CAPSULE 1 po BID x 10 days CEFDINIR 300 MG ORAL CAPSULE 192444 CEFDINIR Inactive PREDNISONE 20 MG ORAL TABLET 2 tabs daily for 3 days, 1 tab daily for 3 days, 1/2 tab daily for 2 days PREDNISONE 20 MG ORAL T ABLET 150341 PREDNISONE Inactive BACTRIM DS 800-160 MG ORAL TABLET 1 tab by mouth twice daily 201 05/02/30 BACTRIM DS 800-160 MG ORAL TABLET 696628 TRIMETHOPRIM-SULFAMETHOXAZOLE Inactive ZITHROMAX Z-EMIL 250 MG ORAL TABLET 2 today, then 1 daily for 4 d ays ZITHROMAX Z-EMIL 250 MG ORAL TABLET 571324 AZITHROMYCIN Inactive TAMIFLU 75 MG ORAL CAPSULE 1 po BID x 5 days 0 TAMIFLU 75 MG ORAL CAPSULE 725078 OSELTAMIVIR PHOSPHATE Inactive CEFDINIR 300 MG ORAL CAPSULE 1 po BID x 10 days 01/03 CEFDINIR 300 MG ORAL CAPSULE 710503 CEFDINIR Inactive ZITHROMAX Z-EMIL 250 MG TABS Take two tablets today and then 1 tablet daily for 4 days ZITHROMAX Z-EMIL 250 MG TABS 924482 AZITHROM YCIN Inactive AMOXICILLIN 875 MG ORAL TABLET 1 tab by mouth twice daily 1 AMOXICILLIN 875 MG ORAL TABLET 543329 AMOXICILLIN Inactive Advance Directives Directive Description Start [...] Range Description Lab Report: CBC, [place] [facility] [place], blood 7.8 10^3/MM^3 [...] Negative Encounters Code Encounter Date Provider Facility CPT-35331 [id number] Vst-Est Level III 18:20:11 CDT Ri lobito Russ [facility] CPT-86056 [id number] Vst-Est Level III 17:21:41 CDT Ri lobito Russ [facility] CPT-12262 [id number] Vst-Est Level IV 13:30:22 C NIC Casper MD [facility] CPT-60148 Level 4 Est. Patient 13:05:26 CDT Myrna Real Bernabe maldonado MD [facility]-24005 [id number] Vst-Est Level IV 20:50:21 C NIC Casper MD [facility] CPT-92550 Level 3 Est. Patient 11:49:34 [employer] Jessica boyd [facility] CPT-69830 Level 3 Est. Patient 14:55:50 [employer] Jose Zhong MD [facility] CPT-61182 Level 3 Est. Patient 10:21:41 [employer] Arie mcqueen MD [facility] CPT-90305 Level 3 Est. Patient 11:35:15 [employer] Arie mcqueen MD [facility] CPT-88589 Level 3 Est. Patient 15:40:28 CDT Brii Are ll [facility] CPT-27884 Level 3 Est. Patient 16:40:36 CDT Arie mcqueen MD [facility] CPT-97622 Level 4 Est. Patient 15:29:22 [employer] Arie mcqueen MD [facility] CPT-61343 Level 3 Est. Patient 15:18:16 [employer] Jono black DO [facility] CPT-05602 Level 4 Est. Patient 12:08:40 [employer] Brii Are ll [facility] CPT-39623 Level 3 Est. Patient 09:24:42 CDT Brii Are ll [facility] CPT-66973 Level 3 Est. Patient 09:12:56 CDT Arie mcqueen MD [facility] CPT-99716 Level 3 Est. Patient 16:40:54 CDT Jose Zhong MD [facility] CPT-33273 Level 2 Est. Patient 13:01:13 CDT Brii Are ll [employer] [facility] CPT-04843 Level 3 Est. Patient 11:55:30 [employer] Jono black DO [facility] CPT-51633 Level 3 Est. Patient 09:52:36 [employer] Brii Are ll [employer] [facility] CPT-08172 Level 3 Est. Patient 16:25:33 [employer] Rich Rosales MD [facility] CPT-18540 Level 3 Est. Patient 20:33:55 CDT Arie mcqueen MD [facility] CPT-38427 Level 3 Est. Patient 14:18:20 CDT Rich Rosales MD [facility] CPT-78195 Level 4 Est. Patient 09:34:31 CDT Arie mcqueen MD [facility] CPT-74767 Level 3 Est. Patient 09:08:55 [employer] Liliana vincent MD [facility] CPT-93770 Level 3 Est. Patient 16:44:07 [employer] Arie mcqueen MD [facility] CPT-24992 Level 3 Est. Patient 10:44:27 CDT Arie mcqueen MD [facility] CPT-30883 Level 3 Est. Patient 08:55:41 CDT Jose Zhong MD [facility] CPT-27626 Level 3 Est. Patient 18:37:31 CDT Liliana vincent MD PhD [facility] CPT-26163 Level 3 Est. Patient 14:28:23 CDT Abelardo HERNANDEZ [facility] CPT-85033 Level 3 Est. Patient 15:18:13 [employer] Arie mcqueen MD [facility] CPT-61751 Level 3 Est. Patient 10:11:29 [employer] Arie mcqueen MD [facility] CPT-18918 Level 3 Est. Patient 10:55:57 [employer] Jono Cheema ee DO [facility] CPT-98454 Level 3 Est. Patient 17:29:05 CDT Arie mcqueen MD [facility] Procedures Code Procedure Name Date Entry Date Standard Desc ription CPT-40103 Ear Wash with irrigation 17:21:41 CDT 07/04 CPT-19635 Nexplanon Removal 15:40:28 CDT CPT-56180 Sono transvag pelvis non OB uterus ovari es cervix - XRAY USE ONLY 08:58:14 [employer] CPT-69278 UA w micro - LAB USE ONLY 16:04:56 [employer] 2015 CPT-83614 Wet Prep/GEN - LAB USE ONLY 16:04:56 [employer] 20 08/10/29 CPT-92261 First Vx - Ix admin via ID I M or jet injects without counseling by physician 16:57:10 CDT CPT-39154 Fluzone Preservative Free Intramuscular Suspension 16:57:10 CDT CPT-J0696 Rocephin 1000 mg (Ceftriaxone) 11:49:23 CDT CPT-J1040 Depo Medrol 80 mg (Methyl Prednisolone A cetate) 11:49:23 CDT CPT-J1100 Decadron 8mg (Dexamethasone) 11:49:23 CDT 2 CPT-07754 Abx/Therapy Injection 11:49:23 CDT CPT-15243 Abx/Therapy Injection 11:49:23 CDT CPT-13833 Abd compl w upright 09:07:26 [employer] CPT-40059 Ear Wash 16:12:47 [employer] CPT-OV Office Visit 11:12:01 CDT CPT-OV Office Visit 15:30:23 CDT CPT-97622 Sono pelvis non OB uterus ovaries cervix 15:50:44 CDT CPT-89991 Hand comp min 3V 16:42:32 CDT CPT-45500 Abd compl w upright 12:17:01 CDT CPT-74121 Nexplanon Placement 15:07:39 [employer] CPT-77779 Removal of IUD 15:07:39 WHEAT AND [facility] CPT-58339 TB Tubersol 12:09:32 CDT CPT-04924 TB Tubersol 13:55:43 CDT
--- OUTSIDE RECORDS SUMMARY | 2020-03-03 07:59 | XMS REPORT | Clinical Summary ---
Author Author Admin, Diamante Marcelo Organization [facility] Address Unknown Phone Unavailable Allergies, Adverse Reactions, [...] cute pharyngitis Nausea 787.02 Active Brii Larson ACCOUNTS ADJUSTABLE CLERK Nausea alone URI 465.9 Active Jono Gagnon DO Acu te upper respiratory infections of unspecified site Allergic rhinitis 477.9 Active Brii Christianson PRN Allergic rhinitis, cause unspecified Abdominal pain, right lower quadrant 789.03 Active Jose Zhong MD Abdominal pain, right lower quadrant Urinary frequency 788.41 Inactive Roseann Crawford Urinary frequency Urinary frequency 788.41 Active 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, [employer] WORK[employer] Urinary frequency Sinusitis - acute 461.9 Active Brii Christianson PRN Acute sinusitis, unspecified Anxiety with depression 300.4 Active Glenn Larson ACCOUNTS ADJUSTABLE CLERK Dysthymic disorder URI 465.9 Active Jono [...] IMPL right arm subcutaneously ETONOGE STREL IMPL 68545004079 No Longer Active Brii Larson APRN Active TUSSIONEX PENNKINETIC ER 10-8 MG/5ML LQCR 5ml po q12hr PRN Cough HYDROCOD POLST-CHLORPHEN POLST 70677699712 No Longer Active Brii Larson APRN Active CETIRIZINE HCL 10 MG ORAL TABS 1 po qd PRN Allergies 2 CETIRIZINE HCL 69009851167 No Longer Active Brii Larson APRN Ac tive PREDNISONE 20 MG TAB 2 tabs daily for 3 days, 1 t ab daily for 3 days, 1/2 tab daily for 2 days PREDNISONE 43944833637 No Longer Active Arie Casper MD Active LOMOTIL 2.5-0.025 MG TAB 1 tab po four times a day as needed for diarrhea DIPHENOXYLATE-ATROPINE 29141208153 No Longer Active Mason Casper MD Active ZOLOFT 50 MG TAB 1 tablet by mouth daily SERTRA LINE HCL 79970906842 No Longer Active Arie Casper MD Active NAPROXEN 500 MG TAB Take 1 tab BID NAPROXEN 332 87013516 No Longer Active Arie Casper MD Active CEFDINIR 300 MG CAPS 1 po BID x 10 days CEFDINI R 35898106915 No Longer Active Brii Larson APRN Active PREDNISONE 20 MG TAB 1 tablet daily for airway inflammation 2015 PREDNISONE 00146683311 No Longer Active Brii Larson APRN Active CEFDINIR 300 MG CAPS 1 po BID x 10 days CEFDINI R 28160882281 No Longer Active Jono Gagnon DO Active FLONASE 50 MCG/ACT SUSP 1 spray each nostril twice d aily for allergies and runny nose until gone FLUTICASONE PROPIONATE No Longe r Active Jono Gagnon DO Active ALPRAZOLAM 0.25 MG TAB 1 tablet by mouth every 8 hours as ne eded for stress ALPRAZOLAM 05744022106 No Longer Active Jono Gagnon DO Active ZITHROMAX Z-EMIL 250 MG TABS 2 today, then 1 daily for 4 days 201 03/31/18 AZITHROMYCIN 28154743837 No Longer Active Arie Casper MD Active PROTONIX 40 MG ORAL TBEC 1 po q a.m. PANTOPRAZO LE SODIUM 64759470670 Active Arie Casper MD Active PREDNISONE 20 MG TAB 2 tabs daily for 3 days, 1 t ab daily for 3 days, 1/2 tab daily for 2 days PREDNISONE 78772458378 No Longer Active Brii Larson APRN Active PREDNISONE 20 MG TAB 1 tablet twice daily for 2 d ays, then 1 tablet once daily for 2 days PREDNISONE 07775086807 No Longer Active Brii Larson APRN Active PROMETHAZINE HCL 12.5 MG TABS 1 tablet by mouth every 6 hours as needed for nausea/vomiting PROMETHAZINE HCL 90455095604 No Longe r Active Jono Gagnon DO Active CITRATE OF MAGNESIA ORAL SOLN 1 bottle today for constipation 20 07/10/15 MAGNESIUM CITRATE 19193507924 No Longer Active Jono Gagnon DO Active ZOFRAN 4 MG ORAL TABS 1 TAB PO Q 6 HRS PRN NAUSEA 2014 ONDANSETRON HCL 83946093657 No Longer Active Brii Larson APRN A ctive LOMOTIL 2.5-0.025 MG TAB 1 to 2 four times a day as needed f or diarrhea DIPHENOXYLATE-ATROPINE 10803070094 No Longer Active January Larson APRN Active AMOXICILLIN 500 MG TABS 2 tabs twice a day for 10 days AMOXICILLIN 26333836823 No Longer Active Brii Larson APRN Acti ve CYCLOBENZAPRINE HCL 10 MG TABS 1/2 - 1 tablet by mouth three times daily as needed for muscle spasm/pain CYCLOBENZAPRINE HCL 94761748371 No Longer Active Arie Casper MD Active LOMOTIL 2.5-0.025 MG TABS 1 to 2 four times a day as needed for diarrhea DIPHENOXYLATE-ATROPINE 45037899926 No Longer Active Mason Casper MD Active MACROBID 100 MG CAP 1 cap by mouth twice daily NITROFURANTOIN MONOHYD MACRO 46649851072 No Longer Active Arie Casper MD Active ZYRTEC ALLERGY 10 MG CAPS 1 po qd CETIRIZINE HCL 78426924838 No Longer Active Arie Casper MD Active AZITHROMYCIN 250 MG TABS 2 po qd x 1 day, then 1 po qd x 4 days AZITHROMYCIN 07372357650 No Longer Active Jillina Frazell ACCOUNTS ADJUSTABLE CLERK Active PREDNISONE 20 MG TAB 2 tabs daily for 3 days, 1 t ab daily for 3 days, 1/2 tab daily for 2 days PREDNISONE 55039588334 No Longer Active Jillina Frazell ACCOUNTS ADJUSTABLE CLERK Active PROMETHAZINE HCL 25 MG TABS 1 four times a day as needed for vomiting PROMETHAZINE HCL 43404662938 No Longer Active Myrna Roberto MD Active BACTRIM DS 800-160 MG TABS 1 twice a day SULFAMETHOXAZOLE-TRIMETHOPRIM 54587509042 No Longer Active Myrna Roberto MD Active VICKS DAYQUIL SEVERE COLD/FLU TABS 1 tab every 6 hours prn 12/10 [id number] TABS 75935378290 No Longer Active Myrna leigh MD Active GUAIFENESIN-CODEINE 100-10 MG/5ML ORAL SYRP 2 tsp every 6 hours prn GUAIFENESIN-CODEINE 86971368290 No Longer Active Myrna Roberto MD Active NAPROXEN 500 MG TAB one tab PO BID NAPROXEN 332 89266827 No Longer Active Myrna Roberto MD Active AUGMENTIN 875-125 MG TAB 1 tab by mouth twice daily with food 20 08/12/16 AMOXICILLIN-POT CLAVULANATE 95161740954 No Longer Active Liliana Estrada MD [facility] Active AMOXICILLIN 500 MG CAP 1 tab by mouth 3 times daily 08/12/16 AMOXICILLIN 94101080002 No Longer Active Liliana Estrada MD PhD Acti ve TESSALON PERLES 100 MG CAP 1 tablet by mouth 3 times daily 11/01 BENZONATATE 46963702941 No Longer Active Liliana Estrada MD PhD Active FLAGYL 500 MG TAB 1 tablet by mouth two times daily 20 07/11/29 METRONIDAZOLE 88607632183 No Longer Active Nilam Weber Active ZITHROMAX 250 MG TAB 2 po today, then 1 po q days 2-5 AZITHROMYCIN 53397455592 No Longer Active Arie Casper MD Acti ve VITAMINS 0.8 MG TABS take 1 tab po qday 08/08 [id number] 15519848076 No Longer Active Arie Casper MD Active IBUPROFEN 800 MG TABS take one po Q 8 hours IBU PROFEN 33779055327 No Longer Active Arie Casper MD Active [facility] TUSSIN COUGH/COLD CF 5-10-100 MG/5ML LIQD 2 teaspoons ev eliud 4 hours [id number] 20874965548 No Longer Active Blaine Casper MD Active COMTREX COLD/COUGH DAY/NITE MS 5-2-10-325 MG MISC 2 caps deja ry 4 hours [id number] 07531797926 No Longer Active Da vimason Casper MD Active CHLORASEPTIC MAX SORE THROAT 15-10 MG LOZG 1 every 2 hours prn 2 BENZOCAINE-MENTHOL 95190974452 No Longer Active Arie Marcelo Active PREDNISONE 20 MG TAB 2 tabs daily for 3 days, 1 t ab daily for 3 days, 1/2 tab daily for 2 days PREDNISONE 22846553459 No Longer Active Jose Zhong MD Active AZITHROMYCIN 250 MG TABS 2 po qd x 1 day, then 1 po qd x 4 days AZITHROMYCIN 30175461582 No Longer Active Jose Zhong MD Active ZOFRAN ODT 4 MG TBDP 1 po q6hr PRN Nausea ONDAN SETRON 31375286118 No Longer Active Rich Rosales MD Active ZOFRAN 4 MG TABS 1 tablet every 4 hours ONDANSE JERRELL HCL 70217083619 No Longer Active Rich Rosales MD Active MUCINEX 600 MG [id number] Take 1-2 tablets every 12 hours GUAIFENESIN 48794699200 No Longer Active Rich Rosales MD Activ e BACTRIM 400-80 MG TABS take one po BID SULFAMETHOXAZOLE-TRIMETHOPRIM 25067017819 No Longer Active Abelardo HERNANDEZ Active AZITHROMYCIN 500 MG TABS 1 PO q day x 6 days AZ ITHROMYCIN 02057318491 No Longer Active Tin HERNANDEZ Active ZITHROMAX 250 MG TAB 2 po today, then 1 po q days 2-5 AZITHROMYCIN 02686273714 No Longer Active Arie Casper MD Acti ve ZITHROMAX 250 MG TAB 2 po today, then 1 po q days 2-5 AZITHROMYCIN 86480213670 No Longer Active Arie Casper MD Acti ve AMOXICILLIN 500 MG CAP 1 tab by mouth 3 times daily 20 09/23/20 AMOXICILLIN 88725687739 No Longer Active Arie Casper MD Acti ve BACTRIM DS 800-160 MG TAB 1 tab by mouth twice daily 2 TRIMETHOPRIM-SULFAMETHOXAZOLE 14731755483 No Longer Active Arie Casper MD Active AMOXICILLIN 500 MG TABS take 1 tab po TID AMOXI CILLIN 79118513324 No Longer Active Arie Casper MD Active BACTRIM DS 800-160 MG TAB 1 tab by mouth twice daily 2 BACTRIM DS 800-160 MG TAB 886428 TRIMETHOPRIM-SULFAMETHOXAZOLE Inac tive MUCINEX 600 MG [id number] Take 1-2 tablets every 12 hours MUCINEX 600 MG [id number] GUAIFENESIN Inactive ZOFRAN 4 MG TABS 1 tablet every 4 hours ZOFRAN 4 MG TABS 205422 ONDANSETRON HCL Inactive ZOFRAN ODT 4 MG TBDP 1 po q6hr PRN Nausea ZOFRAN ODT 4 MG TBDP 322871 ONDANSETRON Inactive CHLORASEPTIC MAX SORE THROAT 15-10 MG LOZG 1 every 2 hours prn 2 CHLORASEPTIC MAX SORE THROAT 15-10 MG LOZG BENZO ARINA-MENTHOL Inactive COMTREX COLD/COUGH DAY/NITE MS 5-2-10-325 MG MISC 2 caps deja ry 4 hours COMTREX COLD/COUGH DAY/NITE MS 5-2-10-325 MG MIS C [id number] Inactive [facility] TUSSIN COUGH/COLD CF 5-10-100 MG/5ML LIQD 2 teaspoons ev eliud 4 hours [facility] TUSSIN COUGH/COLD CF 5-10-100 MG/5ML LIQD [id number] Inactive IBUPROFEN 800 MG TABS take one po Q 8 hours IBUPROFEN 800 MG TABS IBUPROFEN Inactive VITAMINS 0.8 MG TABS take 1 tab po qday 08/08 VITAMINS 0.8 MG TABS [id number] Inactive TESSALON PERLES 100 MG CAP 1 tablet by mouth 3 times daily 11/01 TESSALON PERLES 100 MG CAP 149714 BENZONATATE Inact zaid AMOXICILLIN 500 MG CAP 1 tab by mouth 3 times daily 08/12/16 AMOXICILLIN 500 MG CAP 267472 AMOXICILLIN Inactive GUAIFENESIN-CODEINE 100-10 MG/5ML ORAL SYRP 2 tsp every 6 hours prn GUAIFENESIN-CODEINE 100-10 MG/5ML ORAL SYRP 830167 GUAIFENESIN-CODEINE Inactive VICKS DAYQUIL SEVERE COLD/FLU TABS 1 tab every 6 hours prn 12/10 VICKS DAYQUIL SEVERE COLD/FLU TABS PHENYLEPHRINE -DM-GG-APAP TABS Inactive BACTRIM DS 800-160 MG TABS 1 twice a day BACTRIM DS 800- 160 MG TABS 175387 SULFAMETHOXAZOLE-TRIMETHOPRIM Inactive PROMETHAZINE HCL 25 MG TABS 1 four times a day as needed for vomiting PROMETHAZINE HCL 25 MG TABS 045962 PROMETHAZINE HCL Inactive ZYRTEC ALLERGY 10 MG CAPS 1 po qd ZY RTEC ALLERGY 10 MG CAPS CETIRIZINE HCL Inactive MACROBID 100 MG CAP 1 cap by mouth twice daily MACROBID 100 MG CAP 4482020 NITROFURANTOIN MONOHYD MACRO Inactive LOMOTIL 2.5-0.025 MG TABS 1 to 2 four times a day as needed for diarrhea LOMOTIL 2.5-0.025 MG TABS 8929911 DIPHENOXYLATE-A TROPINE Inactive CYCLOBENZAPRINE HCL 10 MG TABS 1/2 - 1 tablet by mouth three times daily as needed for muscle spasm/pain CYCLOBENZAP RINE HCL 10 MG TABS 168659 CYCLOBENZAPRINE HCL Inactive AMOXICILLIN 500 MG TABS 2 tabs twice a day for 10 days AMOXICILLIN 500 MG TABS 645915 AMOXICILLIN Inactive LOMOTIL 2.5-0.025 MG TAB 1 to 2 four times a day as needed f or diarrhea LOMOTIL 2.5-0.025 MG TAB 5383510 DIPHENOXYLATE-AT ROPINE Inactive ZOFRAN 4 MG ORAL TABS 1 TAB PO Q 6 HRS PRN NAUSEA 2014 ZOFRAN 4 MG ORAL TABS 695538 ONDANSETRON HCL Inactive CITRATE OF MAGNESIA ORAL SOLN 1 bottle today for constipation 20 07/10/15 CITRATE OF MAGNESIA ORAL SOLN 6452621 MAGNESIUM CITRATE Inactive PROMETHAZINE HCL 12.5 MG TABS 1 tablet by mouth every 6 hours as needed for nausea/vomiting PROMETHAZINE HCL 12.5 MG TABS 784561 PROMETHAZINE HCL Inactive PREDNISONE 20 MG TAB 1 tablet twice daily for 2 d ays, then 1 tablet once daily for 2 days PREDNISONE 20 MG TAB 178851 PREDNISONE Inac tive ALPRAZOLAM 0.25 MG TAB 1 tablet by mouth every 8 hours as ne eded for stress ALPRAZOLAM 0.25 MG TAB 260003 ALPRAZOLAM Inact zaid FLONASE 50 MCG/ACT SUSP 1 spray each nostril twice d aily for allergies and runny nose until gone FLONASE 50 MCG/ACT SUSP 2758950 FLUTICASONE PROPIONATE Inactive PREDNISONE 20 MG TAB 1 tablet daily for airway inflammation 2015 PREDNISONE 20 MG TAB 634844 PREDNISONE Inactive NAPROXEN 500 MG TAB Take 1 tab BID NAPROXEN 500 MG TAB 212670 NAPROXEN Inactive ZOLOFT 50 MG TAB 1 tablet by mouth daily ZOLOFT 50 MG TAB 289634 SERTRALINE HCL Inactive LOMOTIL 2.5-0.025 MG TAB 1 tab po four times a day as needed for diarrhea LOMOTIL 2.5-0.025 MG TAB 0784406 DIPHENOXYLATE-AT ROPINE Inactive CETIRIZINE HCL 10 MG ORAL TABS 1 po qd PRN Allergies 2 CETIRIZINE HCL 10 MG ORAL TABS 8948461 CETIRIZINE HCL Inactive TUSSIONEX PENNKINETIC ER 10-8 MG/5ML LQCR 5ml po q12hr PRN Cough TUSSIONEX PENNKINETIC ER 10-8 MG/5ML LQCR HYDROCOD POLST-CHLORPHEN POLST Inactive NEXPLANON IMPL right arm subcutaneously NEXPLANO N IMPL ETONOGESTREL IMPL Inactive AMOXICILLIN 500 MG TABS take 1 tab po TID AMOXICILLIN 500 MG TABS 474425 AMOXICILLIN Inactive AMOXICILLIN 500 MG CAP 1 tab by mouth 3 times daily 09/23/20 AMOXICILLIN 500 MG CAP 203922 AMOXICILLIN Inactive ZITHROMAX 250 MG TAB 2 po today, then 1 po q days 2-5 ZITHROMAX 250 MG TAB 521697 AZITHROMYCIN Inactive ZITHROMAX 250 MG TAB 2 po today, then 1 po q days 2-5 ZITHROMAX 250 MG TAB 533092 AZITHROMYCIN Inactive AZITHROMYCIN 500 MG TABS 1 PO q day x 6 days 3 AZITHROMYCIN 500 MG TABS 7123417 AZITHROMYCIN Inactive BACTRIM 400-80 MG TABS take one po BID BA CTRIM 400-80 MG TABS 865018 SULFAMETHOXAZOLE-TRIMETHOPRIM Inactive AZITHROMYCIN 250 MG TABS 2 po qd x 1 day, then 1 po qd x 4 days AZITHROMYCIN 250 MG TABS 073629 AZITHROMYCIN Inactiv e PREDNISONE 20 MG TAB 2 tabs daily for 3 days, 1 t ab daily for 3 days, 1/2 tab daily for 2 days PREDNISONE 20 MG TAB 683683 PREDNISON E Inactive ZITHROMAX 250 MG TAB 2 po today, then 1 po q days 2-5 ZITHROMAX 250 MG TAB 433991 AZITHROMYCIN Inactive FLAGYL 500 MG TAB 1 tablet by mouth two times daily 07/11/29 FLAGYL 500 MG TAB 343475 METRONIDAZOLE Inactive AUGMENTIN 875-125 MG TAB 1 tab by mouth twice daily with food 08/12/16 AUGMENTIN 875-125 MG TAB 617560 AMOXICILLIN-POT CLAVULA ANGELO Inactive NAPROXEN 500 MG TAB one tab PO BID NAPROXEN 500 MG TAB 143149 NAPROXEN Inactive PREDNISONE 20 MG TAB 2 tabs daily for 3 days, 1 t ab daily for 3 days, 1/2 tab daily for 2 days PREDNISONE 20 MG TAB 778919 PREDNISON E Inactive AZITHROMYCIN 250 MG TABS 2 po qd x 1 day, then 1 po qd x 4 days AZITHROMYCIN 250 MG TABS 286495 AZITHROMYCIN Inactiv e PREDNISONE 20 MG TAB 2 tabs daily for 3 days, 1 t ab daily for 3 days, 1/2 tab daily for 2 days PREDNISONE 20 MG TAB 881097 PREDNISON E Inactive ZITHROMAX Z-EMIL 250 MG TABS 2 today, then 1 daily for 4 days 201 03/31/18 ZITHROMAX Z-EMIL 250 MG TABS 787359 AZITHROMYCIN Inac tive CEFDINIR 300 MG CAPS [...] for 2 days PREDNISONE 20 MG TAB 010086 PREDNISON E Inactive Advance Directives Directive Description [...] Value Unit Range Description Lab Report: Chlamydia/GC APTIMA/39090 - Lab chlamydia DNA probe NOT DETECTED NOT DETECTED Lab Report: Chlamydia/GC APTIMA/49034 - Microbiology Neisseria gonorrhoeae DNA probe NOT [...] 5.0-8.5 Encounters Code Encounter Date Provider Facility CPT-63353 Level 3 Est. Patient 15:40:28 CDT Steve ACCOUNTS ADJUSTABLE CLERK [facility] CPT-80661 Level 3 Est. Patient 16:40:36 CDT Arie mcqueen MD [facility] CPT-31623 Level 4 Est. Patient 15:29:22 GENERATOR MECHANIC Arie mcqueen MD [facility] CPT-27567 Level 3 Est. Patient 15:18:16 GENERATOR MECHANIC Jono black [facility] CPT-03378 Level 4 Est. Patient 12:08:40 GENERATOR MECHANIC Steve ACCOUNTS ADJUSTABLE CLERK [facility] CPT-25292 Level 3 Est. Patient 09:24:42 CDT Steve Formerly named [facility] CPT-70152 Level 3 Est. Patient 09:12:56 CDT Arie mcqueen MD [facility] CPT-35628 Level 3 Est. Patient 16:40:54 CDT Jose Zhong MD [facility] CPT-04335 Level 2 Est. Patient 13:01:13 CDT Steve ACCOUNTS ADJUSTABLE CLERK [facility] CPT-63778 Level 3 Est. Patient 11:55:30 GENERATOR MECHANIC Jono black [facility] CPT-40431 Level 3 Est. Patient 09:52:36 GENERATOR MECHANIC Steve RICK [facility] CPT-97683 Level 3 Est. Patient 16:25:33 GENERATOR MECHANIC Rich Rosales MD [facility] CPT-84909 Level 3 Est. Patient 20:33:55 CDT Arie mcqueen MD [facility] CPT-04390 Level 3 Est. Patient 14:18:20 CDT Rich Rosales MD [facility] CPT-68481 Level 4 Est. Patient 09:34:31 CDT Arie mcqueen MD [facility] CPT-14500 Level 3 Est. Patient 09:08:55 GENERATOR MECHANIC Liliana vincent MD PhD [facility]-38573 Level 3 Est. Patient 16:44:07 GENERATOR MECHANIC Arie mcqueen MD [facility] CPT-84600 Level 3 Est. Patient 10:44:27 CDT Arie mcqueen MD [facility] CPT-36536 Level 3 Est. Patient 08:55:41 CDT Jose Zhong MD [facility] CPT-33461 Level 3 Est. Patient 18:37:31 CDT Liliana vincent MD PhD [facility] CPT-41535 Level 3 Est. Patient 14:28:23 CDT Abelardo HERNANDEZ [facility] CPT-55887 Level 3 Est. Patient 15:18:13 GENERATOR MECHANIC Arie mcqueen MD [facility] CPT-89004 Level 3 Est. Patient 10:11:29 GENERATOR MECHANIC Arie mcqueen MD [facility] CPT-85304 Level 3 Est. Patient 10:55:57 GENERATOR MECHANIC Jono black DO [facility] CPT-30148 Level 3 Est. Patient 17:29:05 CDT Arie mcqueen MD [facility] Procedures Code Procedure Name Date Entry Date Standard Desc ription CPT-10325 Nexplanon Removal 15:40:28 CDT CPT-91320 Sono transvag pelvis non OB uterus ovari es cervix - XRAY USE ONLY 08:58:14 GENERATOR MECHANIC CPT-44092 UA w micro - LAB USE ONLY 16:04:56 GENERATOR MECHANIC 2015 CPT-18273 Wet Prep/GEN - LAB USE ONLY 16:04:56 GENERATOR MECHANIC 20 08/10/29 CPT-71734 First Vx - Ix admin via ID I M or jet injects without counseling by physician 16:57:10 CDT CPT-49972 Fluzone Preservative Free Intramuscular Suspension 16:57:10 CDT CPT-J0696 Rocephin 1000 mg (Ceftriaxone) 11:49:23 CDT CPT-J1040 Depo Medrol 80 mg (Methyl Prednisolone A cetate) 11:49:23 CDT CPT-J1100 Decadron 8mg (Dexamethasone) 11:49:23 CDT 2 CPT-28673 Abx/Therapy Injection 11:49:23 CDT CPT-61712 Abx/Therapy Injection 11:49:23 CDT CPT-56618 Abd compl w upright 09:07:26 GENERATOR MECHANIC CPT-80262 Ear Wash 16:12:47 GENERATOR MECHANIC CPT-OV Office Visit 11:12:01 CDT CPT-OV Office Visit 15:30:23 CDT CPT-17042 Sono pelvis non OB uterus ovaries cervix 15:50:44 CDT CPT-79064 Hand comp min 3V 16:42:32 CDT CPT-58346 Abd compl w upright 12:17:01 CDT CPT-52466 Nexplanon Placement 15:07:39 GENERATOR MECHANIC CPT-87870 Removal of IUD 15:07:39 GENERATOR MECHANIC CPT-44958 TB Tubersol 12:09:32 CDT CPT-35029 TB Tubersol 13:55:43 CDT
--- OUTSIDE RECORDS SUMMARY | 2020-03-03 07:59 | XMS REPORT | Clinical Summary ---
Author Author Admin, Diamante Marcelo Organization [employer] Address Unknown Phone Unavailable Allergies, Adverse Reactions, [...] PhD Cystitis, unspecified SINUSITIS 473.9 Resolved Liliana sEtrada MD PhD Unspecified sinusitis (chronic) CONTRACEPTIVE MANAGEMENT [...] respiratory manifestations Sinusitis 473.9 Active Jessica Heaton [employer] Unspecified sinusitis (chronic) Other mixed anxiety 300.00 [...] outh daily, for acid reflux PANTOPRAZOLE SODIUM [id number] Active Roseann Crawford Active AMOXICILLIN 875 MG ORAL TABLET 1 tab by mouth twice daily 1 AMOXICILLIN 18338848106 Active Brii Russ APRN Active ALPRAZOLAM 0.25 MG ORAL TABLET 1 tablet by mouth twice a day as needed for stress/anxiety ALPRAZOLAM 69538228756 Active Arie whittington MD Active ESCITALOPRAM OXALATE 10 MG ORAL TABLET take 1 tab po qhs for mod 20 10/04/18 ESCITALOPRAM OXALATE 28410907945 Active Arie Casper MD Active TUSSIONEX PENNKINETIC ER 10-8 MG/5ML ORAL SUSPENSION E XTENDED RELEASE 5ml po q12hr PRN Cough HYDROCOD POLST-CHLORPHEN POLST 5 8383744728 No Longer Active Myrna Roberto MD Active ZITHROMAX Z-EMIL 250 MG TABS Take two tablets today and then 1 tablet daily for 4 days AZITHROMYCIN 24604532629 No Longer Active Flaco Rosales MD Active GUAIFENESIN DM 400-20 MG ORAL TABLET 1 pill by mouth t wice daily, if needed for cough DEXTROMETHORPHAN-GUAIFENESIN 53405819467 No Longer Active Rich Rosales MD Active CEFDINIR 300 MG ORAL CAPSULE 1 po BID x 10 days CEFDINIR 75754020981 No Longer Active Jessica Heaton APRN Active CHERATUSSIN AC 100-10 MG/5ML ORAL SYRUP 1 tsp by mouth every 4 hours as needed for cough GUAIFENESIN-CODEINE 48246182045 No Longe r Active Jessica Heaton APRN Active TAMIFLU 75 MG ORAL CAPSULE 1 po BID x 5 days 0 OSELTAMIVIR PHOSPHATE 27277882844 No Longer Active Jose Zhong MD Activ e ZITHROMAX Z-EMIL 250 MG ORAL TABLET 2 today, then 1 daily for 4 d ays AZITHROMYCIN 60793763372 No Longer Active Arie Casper MD Active PROTONIX 40 MG ORAL TABLET DELAYED RELEASE 1 po q a.m. PANTOPRAZOLE SODIUM 84182577115 No Longer Active Arie Casper MD Active BACTRIM DS 800-160 MG ORAL TABLET 1 tab by mouth twice daily 201 05/02/30 TRIMETHOPRIM-SULFAMETHOXAZOLE 98042705204 No Longer Active R [facility] Active NEXPLANON IMPLANT right arm subcutaneously ETONOGESTREL IMPL 92425574956 No Longer Active Brii Areboris [employer] Active TUSSIONEX PENNKINETIC ER 10-8 MG/5ML ORAL SUSPENSION E XTENDED RELEASE 5ml po q12hr PRN Cough HYDROCOD POLST-CHLORPHEN POLST 5 8672970335 No Longer Active Brii Areboris [employer] Active CETIRIZINE HCL 10 MG ORAL TABLET 1 po qd PRN Allergies CETIRIZINE HCL 71590155609 No Longer Active Brii Russ [employer] Activ e PREDNISONE 20 MG ORAL TABLET 2 tabs daily for 3 days, 1 tab daily for 3 days, 1/2 tab daily for 2 days PREDNISONE 48771531395 No Longer Active Arie Casper MD Active LOMOTIL 2.5-0.025 MG ORAL TABLET 1 tab po four times a day as needed for diarrhea DIPHENOXYLATE-ATROPINE 83061547939 No Lo nger Active Arie Casper MD Active ZOLOFT 50 MG ORAL TABLET 1 tablet by mouth daily 12/08 SERTRALINE HCL 31432602574 No Longer Active Arie Casper MD Ac tive NAPROXEN 500 MG ORAL TABLET Take 1 tab BID NAPR OXEN 57434398936 No Longer Active Arie Casper MD Active CEFDINIR 300 MG ORAL CAPSULE 1 po BID x 10 days CEFDINIR 49640539383 No Longer Active Brii Areboris CABRERA Active PREDNISONE 20 MG ORAL TABLET 1 tablet daily for airway inflammat ion PREDNISONE 90685405884 No Longer Active Brii Russ APRN A ctive CEFDINIR 300 MG ORAL CAPSULE 1 po BID x 10 days CEFDINIR 19544098397 No Longer Active Jono Gagnon DO Active FLONASE 50 MCG/ACT NASAL SUSPENSION 1 spray each nostr il twice daily for allergies and runny nose until gone FLUT ICASONE PROPIONATE 97045599222 No Longer Active Jono Gagnon DO Active ALPRAZOLAM 0.25 MG ORAL TABLET 1 tablet by mouth every 8 hours as needed for stress ALPRAZOLAM 55751675756 No Longer Active Jono Gagnon DO Active ZITHROMAX Z-EMIL 250 MG ORAL TABLET 2 today, then 1 daily for 4 d ays AZITHROMYCIN 39256210377 No Longer Active Arie Casper MD Active PREDNISONE 20 MG ORAL TABLET 2 tabs daily for 3 days, 1 tab daily for 3 days, 1/2 tab daily for 2 days PREDNISONE 46948801651 No Longer Active Brii Russ APRN Active PREDNISONE 20 MG ORAL TABLET 1 tablet twice daily for 2 days, then 1 tablet once daily for 2 days PREDNISONE 74691281658 No Longer Active Brii Russ APRN Active PROMETHAZINE HCL 12.5 MG ORAL TABLET 1 tablet by mouth every 6 hours as needed for nausea/vomiting PROMETHAZINE HCL 96235615872 No L onger Active Jono Gagnon DO Active CITRATE OF MAGNESIA ORAL SOLUTION 1 bottle today for constipatio n MAGNESIUM CITRATE 58342894484 No Longer Active Joon Gagnon DO Active ZOFRAN 4 MG ORAL TABLET 1 TAB PO Q 6 HRS PRN NAUSEA 20 07/10/15 ONDANSETRON HCL 99520441131 No Longer Active Brii Russ APRN Acti ve LOMOTIL 2.5-0.025 MG ORAL TABLET 1 to 2 four times a day as needed for diarrhea DIPHENOXYLATE-ATROPINE 35310962180 No Longer Active January Russ APRN Active AMOXICILLIN 500 MG ORAL TABLET 2 tabs twice a day for 10 days 20 07/09/11 AMOXICILLIN 96073643238 No Longer Active Brii Russ APRN Active CYCLOBENZAPRINE HCL 10 MG ORAL TABLET 1/2 - 1 tablet b y mouth three times daily as needed for muscle spasm/pain CYCLOBENZAPRINE HCL 62781402635 No Longer Active Arie Casper MD Active LOMOTIL 2.5-0.025 MG ORAL TABLET 1 to 2 four times a day as needed for diarrhea DIPHENOXYLATE-ATROPINE 46708953644 No Longer Active Fozia Casper MD Active MACROBID 100 MG ORAL CAPSULE 1 cap by mouth twice daily NITROFURANTOIN MONOHYD MACRO 33060892543 No Longer Active Arie Casper MD Active ZYRTEC ALLERGY 10 MG ORAL CAPSULE 1 po qd CE TIRIZINE HCL 21731964529 No Longer Active Arie Casper MD Active AZITHROMYCIN 250 MG ORAL TABLET 2 po qd x 1 day, then 1 po q d x 4 days AZITHROMYCIN 47031172961 No Longer Active Jillina Marcell salgado [employer] Active PREDNISONE 20 MG ORAL TABLET 2 tabs daily for 3 days, 1 tab daily for 3 days, 1/2 tab daily for 2 days PREDNISONE 61164081708 No Longer Active Jillarlen Heaton [employer] Active PROMETHAZINE HCL 25 MG ORAL TABLET 1 four times a day as nee ded for vomiting PROMETHAZINE HCL 27556330616 No Longer Active Myrna Roberto MD Active BACTRIM DS 800-160 MG ORAL TABLET 1 twice a day 05/30 SULFAMETHOXAZOLE-TRIMETHOPRIM 73511959050 No Longer Active Myrna Roberto MD Active VICKS DAYQUIL SEVERE COLD/FLU TABLET 1 tab every 6 hours prn 201 02/22/17 [id number] TABS 11855344301 No Longer Active Chris Roberto MD Active GUAIFENESIN-CODEINE 100-10 MG/5ML ORAL SYRUP 2 tsp every 6 hours prn GUAIFENESIN-CODEINE 29672587602 No Longer Active Myrna Roberto MD Active NAPROXEN 500 MG ORAL TABLET one tab PO BID NAPR OXEN 53131555467 No Longer Active Myrna Roberto MD Active AUGMENTIN 875-125 MG ORAL TABLET 1 tab by mouth twice daily with food AMOXICILLIN-POT CLAVULANATE 10579942679 No Longer Act zaid Liliana Estrada MD PhD Active AMOXICILLIN 500 MG ORAL CAPSULE 1 tab by mouth 3 times daily 201 02/21/05 AMOXICILLIN 53539859455 No Longer Active Liliana Estrada MD PhD Active TESSALON PERLES 100 MG ORAL CAPSULE 1 tablet by mouth 3 times da cory BENZONATATE 15958447409 No Longer Active Liliana Estrada MD PhD Active FLAGYL 500 MG ORAL TABLET 1 tablet by mouth two times daily 2014 METRONIDAZOLE 01012047907 No Longer Active Nilam Raida Ac tive ZITHROMAX 250 MG ORAL TABLET 2 po today, then 1 po q days 2-5 20 06/08/16 AZITHROMYCIN 44551351373 No Longer Active Arie Casper MD Active VITAMINS 0.8 MG ORAL TABLET take 1 tab po qday [id number] 65520770007 No Longer Active Arie Casper MD Active IBUPROFEN 800 MG ORAL TABLET take one po Q 8 hours 201 02/01/16 IBUPROFEN 67964484185 No Longer Active Arie Casper MD Acti ve [facility] TUSSIN COUGH/COLD CF 5-10-100 MG/5ML ORAL LIQUID 2 teasp oons every 4 hours [id number] 79246710506 No Longer Active Blaine Casper MD Active COMTREX COLD/COUGH DAY/NITE MS 5-2-10-325 MG ORAL 2 caps deja ry 4 hours [id number] 74422882347 No Longer Active Landon Casper MD Active CHLORASEPTIC MAX SORE THROAT 15-10 MG MOUTH/THROAT LOZENGE 1 every 2 hours prn BENZOCAINE-MENTHOL 24305527245 No Longer Active Arie Casper MD Active PREDNISONE 20 MG ORAL TABLET 2 tabs daily for 3 days, 1 tab daily for 3 days, 1/2 tab daily for 2 days PREDNISONE 91860376652 No Longer Active Jose Zhong MD Active AZITHROMYCIN 250 MG ORAL TABLET 2 po qd x 1 day, then 1 po q d x 4 days AZITHROMYCIN 68072388562 No Longer Active Jose Mcwilliams MD Active ZOFRAN ODT 4 MG ORAL TABLET DISINTEGRATING 1 po q6hr PRN Nausea ONDANSETRON 14548263560 No Longer Active Rich Rosales MD Active ZOFRAN 4 MG ORAL TABLET 1 tablet every 4 hours ONDANSETRON HCL 39848693975 No Longer Active Rich Rosales MD Activ e MUCINEX 600 MG ORAL TABLET EXTENDED RELEASE 12 HOUR Ta ke 1-2 tablets every 12 hours GUAIFENESIN 06265905424 No Longer Active Rich Rosales MD Active BACTRIM 400-80 MG ORAL TABLET take one po BID SULFAMETHOXAZOLE-TRIMETHOPRIM 22922696411 No Longer Active Abelardo HERNANDEZ Active AZITHROMYCIN 500 MG ORAL TABLET 1 PO q day x 6 days 20 03/02/23 AZITHROMYCIN 38757428456 No Longer Active Tin HERNANDEZ Activ e ZITHROMAX 250 MG ORAL TABLET 2 po today, then 1 po q days 2-5 20 10/03/08 AZITHROMYCIN 78346999810 No Longer Active Arie Casper MD Active ZITHROMAX 250 MG ORAL TABLET 2 po today, then 1 po q days 2-5 20 09/23/25 AZITHROMYCIN 86526743738 No Longer Active Arie Casper MD Active AMOXICILLIN 500 MG ORAL CAPSULE 1 tab by mouth 3 times daily 201 11/24/09 AMOXICILLIN 29253929032 No Longer Active Arie Casper MD Active BACTRIM DS 800-160 MG ORAL TABLET 1 tab by mouth twice daily 201 11/03/14 TRIMETHOPRIM-SULFAMETHOXAZOLE 12121114641 No Longer Active Fozia Casper MD Active AMOXICILLIN 500 MG ORAL TABLET take 1 tab po TID 08/05 AMOXICILLIN 03131576588 No Longer Active Arie Casper MD Acti ve VICKS DAYQUIL SEVERE COLD/FLU TABLET 1 tab every 6 hours prn 201 02/22/17 VICKS DAYQUIL SEVERE COLD/FLU TABLET PHENYLEPHRI [id number] TABS Inactive NEXPLANON IMPLANT right arm subcutaneously NEXPLANON IMPLANT ETONOGESTREL IMPL Inactive ALPRAZOLAM 0.25 MG ORAL TABLET 1 tablet by mouth every 8 hours as needed for stress ALPRAZOLAM 0.25 MG ORAL TABLET 821080 ALPRA ZOLAM Inactive AMOXICILLIN 500 MG ORAL CAPSULE 1 tab by mouth 3 times daily 201 02/21/05 AMOXICILLIN 500 MG ORAL CAPSULE 519833 AMOXICILLIN Inactive AMOXICILLIN 500 MG ORAL CAPSULE 1 tab by mouth 3 times daily 201 11/24/09 AMOXICILLIN 500 MG ORAL CAPSULE 869831 AMOXICILLIN Inactive BACTRIM 400-80 MG ORAL TABLET take one po BID BACTRIM 400- 80 MG ORAL TABLET 434438 SULFAMETHOXAZOLE-TRIMETHOPRIM Inactive BACTRIM DS 800-160 MG ORAL TABLET 1 tab by mouth twice daily 201 05/02/30 BACTRIM DS 800-160 MG ORAL TABLET 906597 TRIMETHOPRIM-SULFAMETHOXAZOLE Inactive BACTRIM DS 800-160 MG ORAL TABLET 1 twice a day 05/30 BACTRIM DS 800-160 MG ORAL TABLET 211507 SULFAMETHOXAZOLE-TRIMETHOPRIM Inactiv e BACTRIM DS 800-160 MG ORAL TABLET 1 tab by mouth twice daily 201 11/03/14 BACTRIM DS 800-160 MG ORAL TABLET 322819 TRIMETHOPRIM-SULFAMETHOXAZOLE Inactive CHERATUSSIN AC 100-10 MG/5ML ORAL SYRUP 1 tsp by mouth every 4 hours as needed for cough CHERATUSSIN AC 100-10 MG/5ML ORAL SYRUP 9 26508 GUAIFENESIN-CODEINE Inactive CITRATE OF MAGNESIA ORAL SOLUTION 1 bottle today for constipatio n CITRATE OF MAGNESIA ORAL SOLUTION 6031488 MAGNESIUM CITR ATE Inactive CYCLOBENZAPRINE HCL 10 MG ORAL TABLET 1/2 - 1 tablet b y mouth three times daily as needed for muscle spasm/pain CYCLOBEN ZAPRINE HCL 10 MG ORAL TABLET 103717 CYCLOBENZAPRINE HCL Inactive FLAGYL 500 MG ORAL TABLET 1 tablet by mouth two times daily 2014 FLAGYL 500 MG ORAL TABLET 280119 METRONIDAZOLE Inacti ve IBUPROFEN 800 MG ORAL TABLET take one po Q 8 hours 201 02/01/16 IBUPROFEN 800 MG ORAL TABLET 658530 IBUPROFEN Inactive LOMOTIL 2.5-0.025 MG ORAL TABLET 1 to 2 four times a day as needed for diarrhea LOMOTIL 2.5-0.025 MG ORAL TABLET 3493904 DIPHENOXYLATE-ATROPINE Inactive LOMOTIL 2.5-0.025 MG ORAL TABLET 1 to 2 four times a day as needed for diarrhea LOMOTIL 2.5-0.025 MG ORAL TABLET 1315766 DIPHENOXYLATE-ATROPINE Inactive LOMOTIL 2.5-0.025 MG ORAL TABLET 1 tab po four times a day as needed for diarrhea LOMOTIL 2.5-0.025 MG ORAL TABLET 9263799 DIPHENOXYLATE-ATROPINE Inactive MACROBID 100 MG ORAL CAPSULE 1 cap by mouth twice daily MACROBID 100 MG ORAL CAPSULE 7781991 NITROFURANTOIN MONOHYD MACRO In active NAPROXEN 500 [...] days PREDNISONE 20 MG ORAL T ABLET 730036 PREDNISONE Inactive PREDNISONE 20 MG ORAL TABLET 2 tabs daily for 3 days, 1 tab daily for 3 days, 1/2 tab daily for 2 days PREDNISONE 20 MG ORAL T ABLET 820356 PREDNISONE Inactive PREDNISONE 20 MG ORAL TABLET 2 tabs daily for 3 days, 1 tab daily for 3 days, 1/2 tab daily for 2 days PREDNISONE 20 MG ORAL T ABLET 135558 PREDNISONE Inactive PREDNISONE 20 MG ORAL TABLET 2 tabs daily for 3 days, 1 tab daily for 3 days, 1/2 tab daily for 2 days PREDNISONE 20 MG ORAL T ABLET 677456 PREDNISONE Inactive PREDNISONE 20 MG ORAL TABLET 1 tablet daily for airway inflammat ion PREDNISONE 20 MG ORAL TABLET 121814 PREDNISONE [place] ctive PREDNISONE 20 MG ORAL TABLET 1 tablet twice daily for 2 days, then 1 tablet once daily for 2 days PREDNISONE 20 MG ORAL TABLET 032788 PREDNISONE Inactive PROMETHAZINE HCL 12.5 MG ORAL TABLET 1 tablet by mouth every 6 hours as needed for nausea/vomiting PROMETHAZINE HCL 12.5 MG ORA L TABLET 970347 PROMETHAZINE HCL Inactive PROMETHAZINE HCL 25 MG ORAL TABLET 1 four times a day as nee ded for vomiting PROMETHAZINE HCL 25 MG ORAL TABLET 423784 PROMETHAZINE HCL Inactive ZOFRAN 4 MG ORAL TABLET 1 tablet every 4 hours ZOFRAN 4 MG ORAL TABLET 667553 ONDANSETRON HCL Inactive ZOFRAN 4 MG ORAL TABLET 1 TAB PO Q 6 HRS PRN NAUSEA 07/10/15 ZOFRAN 4 MG ORAL TABLET 132108 ONDANSETRON HCL Inactive ZOLOFT 50 MG ORAL TABLET 1 tablet by mouth daily 12/08 ZOLOFT 50 MG ORAL TABLET 620476 SERTRALINE HCL Inactive CETIRIZINE HCL 10 MG ORAL TABLET 1 po qd PRN Allergies CETIRIZINE HCL 10 MG ORAL TABLET 5787475 CETIRIZINE HCL Inactiv e TESSALON PERLES 100 MG ORAL CAPSULE 1 tablet by mouth 3 times da cory TESSALON PERLES 100 MG ORAL CAPSULE 329885 BENZONATATE Inactive AUGMENTIN 875-125 MG ORAL TABLET 1 tab by mouth twice daily with food AUGMENTIN 875-125 MG ORAL TABLET 696693 AMOXICIL ELSA-POT CLAVULANATE Inactive AMOXICILLIN 500 MG ORAL TABLET take 1 tab po TID 08/05 AMOXICILLIN 500 MG ORAL TABLET 493320 AMOXICILLIN Inactive AMOXICILLIN 500 MG ORAL TABLET 2 tabs twice a day for 10 days 20 07/09/11 AMOXICILLIN 500 MG ORAL TABLET 399623 AMOXICILLIN I nactive AZITHROMYCIN 500 MG ORAL TABLET 1 PO q day x 6 days 03/02/23 AZITHROMYCIN 500 MG ORAL TABLET 9034423 AZITHROMYCIN Inactive ZITHROMAX 250 MG ORAL TABLET 2 po today, then 1 po q days 2-5 20 09/23/25 ZITHROMAX 250 MG ORAL TABLET 207391 AZITHROMYCIN Arlen ctive ZITHROMAX 250 MG ORAL TABLET 2 po today, then 1 po q days 2-5 20 10/03/08 ZITHROMAX 250 MG ORAL TABLET 225601 AZITHROMYCIN Arlen ctive ZITHROMAX 250 MG ORAL TABLET 2 po today, then 1 po q days 2-5 20 06/08/16 ZITHROMAX 250 MG ORAL TABLET 957659 AZITHROMYCIN Arlen ctive AZITHROMYCIN 250 MG ORAL TABLET 2 po qd x 1 day, then 1 po q d x 4 days AZITHROMYCIN 250 MG ORAL TABLET 430319 AZITHROMY ALLISON Inactive AZITHROMYCIN 250 MG ORAL TABLET 2 po qd x 1 day, then 1 po q d x 4 days AZITHROMYCIN 250 MG ORAL TABLET 894915 AZITHROMY ALLISON Inactive CEFDINIR 300 MG ORAL CAPSULE 1 po BID x 10 days 12/18 CEFDINIR 300 MG ORAL CAPSULE 20030127 CEFDINIR Inactive CEFDINIR 300 MG ORAL CAPSULE 1 po BID x 10 days CEFDINIR 300 MG ORAL CAPSULE 351226 CEFDINIR Inactive CEFDINIR 300 MG ORAL CAPSULE 1 po BID x 10 days 01/03 CEFDINIR 300 MG ORAL CAPSULE 20030127 CEFDINIR Inactive ZOFRAN ODT 4 MG ORAL TABLET DISINTEGRATING 1 po q6hr PRN Nausea ZOFRAN ODT 4 MG ORAL TABLET DISINTEGRATING 640465 ONDAN SETRON Inactive TAMIFLU 75 MG ORAL CAPSULE 1 po BID x 5 days 0 TAMIFLU 75 MG ORAL CAPSULE 605596 OSELTAMIVIR PHOSPHATE Inactive PROTONIX 40 MG ORAL TABLET DELAYED RELEASE 1 po q a.m. PROTONIX 40 MG ORAL TABLET DELAYED RELEASE 030719 PANTOPRAZOLE SODI UM Inactive ZITHROMAX Z-EMIL 250 MG ORAL TABLET 2 today, then 1 daily for 4 d ays ZITHROMAX Z-EMIL 250 MG ORAL TABLET 405988 AZITHROMYCIN Inactive ZITHROMAX Z-EMIL 250 MG TABS Take two tablets today and then 1 tablet daily for 4 days ZITHROMAX Z-EMIL 250 MG TABS 947062 AZITHROM YCIN Inactive ZITHROMAX Z-EMIL 250 MG ORAL TABLET 2 today, then 1 daily for 4 d ays ZITHROMAX Z-EMIL 250 MG ORAL TABLET 157207 AZITHROMYCIN Inactive FLONASE 50 MCG/ACT NASAL SUSPENSION 1 spray each nostr il twice daily for allergies and runny nose until gone FLON ASE 50 MCG/ACT NASAL SUSPENSION 3853509 FLUTICASONE PROPIONATE Inactive MUCINEX 600 MG ORAL TABLET EXTENDED RELEASE 12 HOUR Ta ke 1-2 tablets every 12 hours MUCINEX 600 MG ORAL TABLET EXTENDED RELEA SE 12 HOUR GUAIFENESIN Inactive COMTREX COLD/COUGH DAY/NITE MS 5-2-10-325 MG ORAL 2 caps deja ry 4 hours COMTREX COLD/COUGH DAY/NITE MS 5-2-10-325 MG ORA L [id number] Inactive GUAIFENESIN-CODEINE 100-10 MG/5ML ORAL SYRUP 2 tsp every 6 hours prn GUAIFENESIN-CODEINE 100-10 MG/5ML ORAL SYRUP 775753 GUAIFENESIN-CODEINE Inactive VITAMINS 0.8 MG ORAL TABLET take 1 tab po qday VITAMINS 0.8 MG ORAL TABLET [id number] E-FA Inactive [facility] TUSSIN COUGH/COLD CF 5-10-100 MG/5ML ORAL LIQUID 2 teasp oons every 4 hours [facility] TUSSIN COUGH/COLD CF 5-10-100 MG/5ML ORAL LI QUID [id number] Inactive ZYRTEC ALLERGY 10 MG ORAL CAPSULE [...] Negative Encounters Code Encounter Date Provider Facility CPT-77030 [id number] Vst-Est Level III 17:21:41 CDT Me lobito Russ [facility]-71316 [id number] Vst-Est Level IV 13:30:22 C NIC Casper MD [facility]-62220 Level 4 Est. Patient 13:05:26 CDT Myrna maldonado MD [facility]-16825 [id number] Vst-Est Level IV 20:50:21 C NIC Casper MD [facility] CPT-99773 Level 3 Est. Patient 11:49:34 COMPLIANCE REPRESENTATIVE DEALER Jessica boyd [facility]-11632 Level 3 Est. Patient 14:55:50 COMPLIANCE REPRESENTATIVE DEALER Jose Zhong MD [facility]-98080 Level 3 Est. Patient 10:21:41 COMPLIANCE REPRESENTATIVE DEALER Arie mcqueen MD [facility]-10364 Level 3 Est. Patient 11:35:15 COMPLIANCE REPRESENTATIVE DEALER Arie mcqueen MD [facility]-67760 Level 3 Est. Patient 15:40:28 CDT Brii escalante [facility]-42565 Level 3 Est. Patient 16:40:36 CDT Arie mcqueen MD [facility] CPT-79526 Level 4 Est. Patient 15:29:22 COMPLIANCE REPRESENTATIVE DEALER Arie mcqueen MD [facility] CPT-98186 Level 3 Est. Patient 15:18:16 COMPLIANCE REPRESENTATIVE DEALER Jono black [facility] CPT-53004 Level 4 Est. Patient 12:08:40 COMPLIANCE REPRESENTATIVE DEALER Brii Are [facility] CPT-89757 Level 3 Est. Patient 09:24:42 CDT Brii Are [facility] CPT-89956 Level 3 Est. Patient 09:12:56 CDT Arie mcqueen MD [facility] CPT-45842 Level 3 Est. Patient 16:40:54 CDT Jose Zhong MD [facility]-40159 Level 2 Est. Patient 13:01:13 CDT Brii Are [facility] CPT-54667 Level 3 Est. Patient 11:55:30 COMPLIANCE REPRESENTATIVE DEALER Jono black [facility] CPT-93516 Level 3 Est. Patient 09:52:36 COMPLIANCE REPRESENTATIVE DEALER Brii Are [facility] CPT-27954 Level 3 Est. Patient 16:25:33 COMPLIANCE REPRESENTATIVE DEALER Rich Rosales MD [facility] CPT-44591 Level 3 Est. Patient 20:33:55 CDT Arie mcqueen MD [facility] CPT-59454 Level 3 Est. Patient 14:18:20 CDT Rich Rosales MD [facility] CPT-52439 Level 4 Est. Patient 09:34:31 CDT Arie mcqueen MD [facility]-72854 Level 3 Est. Patient 09:08:55 COMPLIANCE REPRESENTATIVE DEALER Liliana vincent MD PhD [facility] CPT-50141 Level 3 Est. Patient 16:44:07 COMPLIANCE REPRESENTATIVE DEALER Arie mcqueen MD [facility] CPT-66999 Level 3 Est. Patient 10:44:27 CDT Arie mcqueen MD [facility] CPT-25802 Level 3 Est. Patient 08:55:41 CDT Jose Zhong MD [facility] CPT-42903 Level 3 Est. Patient 18:37:31 CDT Liliana vincent MD PhD [facility] CPT-58282 Level 3 Est. Patient 14:28:23 CDT Abelardo marroquin PA [facility] CPT-49947 Level 3 Est. Patient 15:18:13 COMPLIANCE REPRESENTATIVE DEALER Arie mcqueen MD [facility] CPT-64242 Level 3 Est. Patient 10:11:29 COMPLIANCE REPRESENTATIVE DEALER Arie mcqueen MD [facility] CPT-16785 Level 3 Est. Patient 10:55:57 COMPLIANCE REPRESENTATIVE DEALER Jono black DO [facility] CPT-02621 Level 3 Est. Patient 17:29:05 CDT Arie mcqueen MD [facility] Procedures Code Procedure Name Date Entry Date Standard Desc ription CPT-83286 Ear Wash with irrigation 17:21:41 CDT 07/04 CPT-02138 Nexplanon Removal 15:40:28 CDT CPT-92167 Sono transvag pelvis non OB uterus ovari es cervix - XRAY USE ONLY 08:58:14 COMPLIANCE REPRESENTATIVE DEALER CPT-00342 UA w micro - LAB USE ONLY 16:04:56 COMPLIANCE REPRESENTATIVE DEALER 2015 CPT-09268 Wet Prep/GEN - LAB USE ONLY 16:04:56 COMPLIANCE REPRESENTATIVE DEALER 20 08/10/29 CPT-74564 First Vx - Ix admin via ID I M or jet injects without counseling by physician 16:57:10 CDT CPT-24084 Fluzone Preservative Free Intramuscular Suspension 16:57:10 CDT CPT-J0696 Rocephin 1000 mg (Ceftriaxone) 11:49:23 CDT CPT-J1040 Depo Medrol 80 mg (Methyl Prednisolone A cetate) 11:49:23 CDT CPT-J1100 Decadron 8mg (Dexamethasone) 11:49:23 CDT 2 CPT-00241 Abx/Therapy Injection 11:49:23 CDT CPT-78169 Abx/Therapy Injection 11:49:23 CDT CPT-59083 Abd compl w upright 09:07:26 COMPLIANCE REPRESENTATIVE DEALER CPT-96432 Ear Wash 16:12:47 COMPLIANCE REPRESENTATIVE DEALER CPT-OV Office Visit 11:12:01 CDT CPT-OV Office Visit 15:30:23 CDT CPT-44845 Sono pelvis non OB uterus ovaries cervix 15:50:44 CDT CPT-09673 Hand comp min 3V 16:42:32 CDT CPT-64499 Abd compl w upright 12:17:01 CDT CPT-04549 Nexplanon Placement 15:07:39 COMPLIANCE REPRESENTATIVE DEALER CPT-73870 Removal of IUD 15:07:39 COMPLIANCE REPRESENTATIVE DEALER CPT-36672 TB Tubersol 12:09:32 CDT CPT-43823 TB Tubersol 13:55:43 CDT
--- OUTSIDE RECORDS SUMMARY | 2020-03-03 08:00 | XMS REPORT | Clinical Summary ---
Author Author Admin, Diamante Marcelo Organization [employer] Address Unknown Phone Unavailable Allergies, Adverse Reactions, [...] site Abdominal pain 789.00 Active Brii Larson [employer] SCI[employer]IST Abdominal pain, unspecified site Diarrhea 787.91 Resolved [...] cute pharyngitis Nausea 787.02 Active Brii Larson [employer]IST Nausea alone URI 465.9 Active Jono Gagnon [...] Anxiety with depression 300.4 Active Glenn Larson [employer]IST Dysthymic disorder URI 465.9 Active Jono Gagnon [...] Ph D Urinary frequency ICD-788.41 Inactive Roseann willtet Medication List Medication Instructions Start Date Stop Date Generic Name NDC Status Provider Patient Instruction LOMOTIL 2.5-0.025 MG TAB 1 tab po four times a day as needed for diarrhea DIPHENOXYLATE-ATROPINE 68006479956 No Longer Active Fozia Casper MD Active ZOLOFT 50 MG TAB 1 tablet by mouth daily SERTRA LINE HCL 30834671264 No Longer Active Arie Casper MD Active NAPROXEN 500 MG TAB Take 1 tab BID NAPROXEN 332 34188746 No Longer Active Arie Casper MD Active NEXPLANON IMPL Left arm subcutaneously ETONOGES TREL IMPL 44820445810 Active Brii Larson APRN Active CEFDINIR 300 MG CAPS 1 po BID x 10 days CEFDINI R 32731527637 No Longer Active Brii Larson APRN Active PREDNISONE 20 MG TAB 1 tablet daily for airway inflammation 2015 PREDNISONE 32829359060 No Longer Active Brii Larson APRN Active CEFDINIR 300 MG CAPS 1 po BID x 10 days CEFDINI R 14956080326 No Longer Active Jono Gagnon DO Active FLONASE 50 MCG/ACT SUSP 1 spray each nostril twice d aily for allergies and runny nose until gone FLUTICASONE PROPIONATE No Longe r Active Jono Gagnon DO Active ALPRAZOLAM 0.25 MG TAB 1 tablet by mouth every 8 hours as ne eded for stress ALPRAZOLAM 02576654255 No Longer Active Jono Gagnon DO Active ZITHROMAX Z-EMIL 250 MG TABS 2 today, then 1 daily for 4 days 201 03/31/18 AZITHROMYCIN 73767385771 No Longer Active Arie Casper MD Active PROTONIX 40 MG ORAL TBEC 1 po q a.m. PANTOPRAZO LE SODIUM 42495141549 Active Arie Casper MD Active PREDNISONE 20 MG TAB 2 tabs daily for 3 days, 1 t ab daily for 3 days, 1/2 tab daily for 2 days PREDNISONE 94015826668 No Longer Active Brii Larson APRN Active PREDNISONE 20 MG TAB 1 tablet twice daily for 2 d ays, then 1 tablet once daily for 2 days PREDNISONE 04909128219 No Longer Active Brii Larsno APRN Active PROMETHAZINE HCL 12.5 MG TABS 1 tablet by mouth every 6 hours as needed for nausea/vomiting PROMETHAZINE HCL 98683894188 No Longe r Active Jono Gagnon DO Active CITRATE OF MAGNESIA ORAL SOLN 1 bottle today for constipation 20 07/10/15 MAGNESIUM CITRATE 24842155906 No Longer Active Jono Gagnon DO Active ZOFRAN 4 MG ORAL TABS 1 TAB PO Q 6 HRS PRN NAUSEA 2014 ONDANSETRON HCL 67098304842 No Longer Active Brii Larson APRN A ctive LOMOTIL 2.5-0.025 MG TAB 1 to 2 four times a day as needed f or diarrhea DIPHENOXYLATE-ATROPINE 80672093978 No Longer Active M kait Larson APRN Active AMOXICILLIN 500 MG TABS 2 tabs twice a day for 10 days AMOXICILLIN 72534319013 No Longer Active Brii Larson APRN Acti ve CYCLOBENZAPRINE HCL 10 MG TABS 1/2 - 1 tablet by mouth three times daily as needed for muscle spasm/pain CYCLOBENZAPRINE HCL 91075170619 No Longer Active Arie Casper MD Active LOMOTIL 2.5-0.025 MG TABS 1 to 2 four times a day as needed for diarrhea DIPHENOXYLATE-ATROPINE 98033585873 No Longer Active D freddy Casper MD Active MACROBID 100 MG CAP 1 cap by mouth twice daily NITROFURANTOIN MONOHYD MACRO 51976895072 No Longer Active Arie Casper MD Active ZYRTEC ALLERGY 10 MG CAPS 1 po qd CETIRIZINE HCL 59351318968 No Longer Active Arie Casper MD Active AZITHROMYCIN 250 MG TABS 2 po qd x 1 day, then 1 po qd x 4 days AZITHROMYCIN 72383563600 No Longer Active Jessica Heaton APRN Active PREDNISONE 20 MG TAB 2 tabs daily for 3 days, 1 t ab daily for 3 days, 1/2 tab daily for 2 days PREDNISONE 36889685211 No Longer Active Waynellisael Heaton APRN Active PROMETHAZINE HCL 25 MG TABS 1 four times a day as needed for vomiting PROMETHAZINE HCL 54102926128 No Longer Active Myrna Roberto MD Active BACTRIM DS 800-160 MG TABS 1 twice a day SULFAMETHOXAZOLE-TRIMETHOPRIM 44897619064 No Longer Active Myrna Roberto MD Active VICKS DAYQUIL SEVERE COLD/FLU TABS 1 tab every 6 hours prn 12/10 [id number]-APAP TABS 82693820565 No Longer Active Myrna leigh MD Active GUAIFENESIN-CODEINE 100-10 MG/5ML ORAL SYRP 2 tsp every 6 hours prn GUAIFENESIN-CODEINE 07701451382 No Longer Active Myrna Roberto MD Active NAPROXEN 500 MG TAB one tab PO BID NAPROXEN 332 47293417 No Longer Active Myrna Roberto MD Active AUGMENTIN 875-125 MG TAB 1 tab by mouth twice daily with food 20 08/12/16 AMOXICILLIN-POT CLAVULANATE 19464469041 No Longer Active Liliana Estrada MD PhD Active AMOXICILLIN 500 MG CAP 1 tab by mouth 3 times daily 08/12/16 AMOXICILLIN 77625826073 No Longer Active Liliana Estrada MD PhD Acti ve TESSALON PERLES 100 MG CAP 1 tablet by mouth 3 times daily 11/01 BENZONATATE 04398243238 No Longer Active Liliana Estrada MD PhD Active FLAGYL 500 MG TAB 1 tablet by mouth two times daily 07/11/29 METRONIDAZOLE 63949111347 No Longer Active Nilam Raida Active ZITHROMAX 250 MG TAB 2 po today, then 1 po q days 2-5 AZITHROMYCIN 45823086454 No Longer Active Arie Casper MD Acti ve VITAMINS 0.8 MG TABS take 1 tab po qday 08/08 [id number] 14977209099 No Longer Active Arie Casper MD Active IBUPROFEN 800 MG TABS take one po Q 8 hours IBU PROFEN 17124857488 No Longer Active Arie Casper MD Active [facility] TUSSIN COUGH/COLD CF 5-10-100 MG/5ML LIQD 2 teaspoons ev eliud 4 hours [id number] 07215818456 No Longer Active Blaine Casper MD Active COMTREX COLD/COUGH DAY/NITE MS 5-2-10-325 MG MISC 2 caps deja ry 4 hours [id number] 42168267932 No Longer Active Da aleksandra Casper MD Active CHLORASEPTIC MAX SORE THROAT 15-10 MG LOZG 1 every 2 hours prn 2 BENZOCAINE-MENTHOL 42181683301 No Longer Active Arie Marcelo Active PREDNISONE 20 MG TAB 2 tabs daily for 3 days, 1 t ab daily for 3 days, 1/2 tab daily for 2 days PREDNISONE 54237970754 No Longer Active Jose Zhong MD Active AZITHROMYCIN 250 MG TABS 2 po qd x 1 day, then 1 po qd x 4 days AZITHROMYCIN 35093389679 No Longer Active Jose Zhong MD Active ZOFRAN ODT 4 MG TBDP 1 po q6hr PRN Nausea ONDAN SETRON 74651717961 No Longer Active Rich Rosales MD Active ZOFRAN 4 MG TABS 1 tablet every 4 hours ONDANSE JERRELL HCL 23302867539 No Longer Active Rich Rosales MD Active MUCINEX 600 MG [id number]-VID Take 1-2 tablets every 12 hours GUAIFENESIN 38619192474 No Longer Active Rich Rosales MD Activ e BACTRIM 400-80 MG TABS take one po BID SULFAMETHOXAZOLE-TRIMETHOPRIM 46375564144 No Longer Active Abelardo HERNANDEZ Active AZITHROMYCIN 500 MG TABS 1 PO q day x 6 days AZ ITHROMYCIN 75614295784 No Longer Active Tin HERNANDEZ Active ZITHROMAX 250 MG TAB 2 po today, then 1 po q days 2-5 AZITHROMYCIN 00905394867 No Longer Active Arie Casper MD Acti ve ZITHROMAX 250 MG TAB 2 po today, then 1 po q days 2-5 AZITHROMYCIN 19336240037 No Longer Active Arie Casper MD Acti ve AMOXICILLIN 500 MG CAP 1 tab by mouth 3 times daily 09/23/20 AMOXICILLIN 38427664732 No Longer Active Arie Casper MD Acti ve BACTRIM DS 800-160 MG TAB 1 tab by mouth twice daily 2 TRIMETHOPRIM-SULFAMETHOXAZOLE 83280930442 No Longer Active Arie Casper MD Active AMOXICILLIN 500 MG TABS take 1 tab po TID AMOXI CILLIN 93198423675 No Longer Active Arie Casper MD Active BACTRIM DS 800-160 MG TAB 1 tab by mouth twice daily 2 BACTRIM DS 800-160 MG TAB 393567 TRIMETHOPRIM-SULFAMETHOXAZOLE Inac tive MUCINEX 600 MG [id number] Take 1-2 tablets every 12 hours MUCINEX 600 MG [id number] GUAIFENESIN Inactive ZOFRAN 4 MG TABS 1 tablet every 4 hours ZOFRAN 4 MG TABS 166260 ONDANSETRON HCL Inactive ZOFRAN ODT 4 MG TBDP 1 po q6hr PRN Nausea ZOFRAN ODT 4 MG TBDP 727600 ONDANSETRON Inactive CHLORASEPTIC MAX SORE THROAT 15-10 MG LOZG 1 every 2 hours prn 2 /04/30 CHLORASEPTIC MAX SORE THROAT 15-10 MG LOZG BENZO ARINA-MENTHOL Inactive COMTREX COLD/COUGH DAY/NITE MS 5-2-10-325 MG MISC 2 caps deja ry 4 hours COMTREX COLD/COUGH DAY/NITE MS 5-2-10-325 MG MIS C [id number] Inactive [facility] TUSSIN COUGH/COLD CF 5-10-100 MG/5ML LIQD 2 teaspoons ev eliud 4 hours [facility] TUSSIN COUGH/COLD CF 5-10-100 MG/5ML LIQD [id number] Inactive IBUPROFEN 800 MG TABS take one po Q 8 hours IBUPROFEN 800 MG TABS IBUPROFEN Inactive VITAMINS 0.8 MG TABS take 1 tab po qday 08/08 VITAMINS 0.8 MG TABS DMBOWKNA-AEN-OF-FA Inactive TESSALON PERLES 100 MG CAP 1 tablet by mouth 3 times daily 11/01 TESSALON PERLES 100 MG CAP 493529 BENZONATATE Inact zaid AMOXICILLIN 500 MG CAP 1 tab by mouth 3 times daily 08/12/16 AMOXICILLIN 500 MG CAP 995490 AMOXICILLIN Inactive GUAIFENESIN-CODEINE 100-10 MG/5ML ORAL SYRP 2 tsp every 6 hours prn GUAIFENESIN-CODEINE 100-10 MG/5ML ORAL SYRP 925768 GUAIFENESIN-CODEINE Inactive VICKS DAYQUIL SEVERE COLD/FLU TABS 1 tab every 6 hours prn 12/10 VICKS DAYQUIL SEVERE COLD/FLU TABS PHENYLEPHRINE -DM-GG-APAP TABS Inactive BACTRIM DS 800-160 MG TABS 1 twice a day BACTRIM DS 800- 160 MG TABS 351136 SULFAMETHOXAZOLE-TRIMETHOPRIM Inactive PROMETHAZINE HCL 25 MG TABS 1 four times a day as needed for vomiting PROMETHAZINE HCL 25 MG TABS 545334 PROMETHAZINE HCL Inactive ZYRTEC ALLERGY 10 MG CAPS 1 po qd ZY RTEC ALLERGY 10 MG CAPS CETIRIZINE HCL Inactive MACROBID 100 MG CAP 1 cap by mouth twice daily MACROBID 100 MG CAP 6718372 NITROFURANTOIN MONOHYD MACRO Inactive LOMOTIL 2.5-0.025 MG TABS 1 to 2 four times a day as needed for diarrhea LOMOTIL 2.5-0.025 MG TABS 2890277 DIPHENOXYLATE-A TROPINE Inactive CYCLOBENZAPRINE HCL 10 MG TABS 1/2 - 1 tablet by mouth three times daily as needed for muscle spasm/pain CYCLOBENZAP RINE HCL 10 MG TABS 769952 CYCLOBENZAPRINE HCL Inactive AMOXICILLIN 500 MG TABS 2 tabs twice a day for 10 days AMOXICILLIN 500 MG TABS 213248 AMOXICILLIN Inactive LOMOTIL 2.5-0.025 MG TAB 1 to 2 four times a day as needed f or diarrhea LOMOTIL 2.5-0.025 MG TAB 8920441 DIPHENOXYLATE-AT ROPINE Inactive ZOFRAN 4 MG ORAL TABS 1 TAB PO Q 6 HRS PRN NAUSEA 2014 ZOFRAN 4 MG ORAL TABS 902221 ONDANSETRON HCL Inactive CITRATE OF MAGNESIA ORAL SOLN 1 bottle today for constipation 20 07/10/15 CITRATE OF MAGNESIA ORAL SOLN 8194473 MAGNESIUM CITRATE Inactive PROMETHAZINE HCL 12.5 MG TABS 1 tablet by mouth every 6 hours as needed for nausea/vomiting PROMETHAZINE HCL 12.5 MG TABS 900432 PROMETHAZINE HCL Inactive PREDNISONE 20 MG TAB 1 tablet twice daily for 2 d ays, then 1 tablet once daily for 2 days PREDNISONE 20 MG TAB 424658 PREDNISONE Inac tive ALPRAZOLAM 0.25 MG TAB 1 tablet by mouth every 8 hours as ne eded for stress ALPRAZOLAM 0.25 MG TAB 568715 ALPRAZOLAM Inact zaid FLONASE 50 MCG/ACT SUSP 1 spray each nostril twice d aily for allergies and runny nose until gone FLONASE 50 MCG/ACT SUSP F LUTICASONE PROPIONATE Inactive PREDNISONE 20 MG TAB 1 tablet daily for airway inflammation 2015 PREDNISONE 20 MG TAB 031118 PREDNISONE Inactive NAPROXEN 500 MG TAB Take 1 tab BID NAPROXEN 500 MG TAB 665361 NAPROXEN Inactive ZOLOFT 50 MG TAB 1 tablet by mouth daily ZOLOFT 50 MG TAB 462452 SERTRALINE HCL Inactive LOMOTIL 2.5-0.025 MG TAB 1 tab po four times a day as needed for diarrhea LOMOTIL 2.5-0.025 MG TAB 8350607 DIPHENOXYLATE-AT ROPINE Inactive AMOXICILLIN 500 MG TABS take 1 tab po TID AMOXICILLIN 500 MG TABS 779442 AMOXICILLIN Inactive AMOXICILLIN 500 MG CAP 1 tab by mouth 3 times daily 09/23/20 AMOXICILLIN 500 MG CAP 229234 AMOXICILLIN Inactive ZITHROMAX 250 MG TAB 2 po today, then 1 po q days 2-5 ZITHROMAX 250 MG TAB 7942609 AZITHROMYCIN Inactive ZITHROMAX 250 MG TAB 2 po today, then 1 po q days 2-5 ZITHROMAX 250 MG TAB 8186022 AZITHROMYCIN Inactive AZITHROMYCIN 500 MG TABS 1 PO q day x 6 days 3 AZITHROMYCIN 500 MG TABS 6930221 AZITHROMYCIN Inactive BACTRIM 400-80 MG TABS take one po BID BA CTRIM 400-80 MG TABS 230517 SULFAMETHOXAZOLE-TRIMETHOPRIM Inactive AZITHROMYCIN 250 MG TABS 2 po qd x 1 day, then 1 po qd x 4 days AZITHROMYCIN 250 MG TABS 4082963 AZITHROMYCIN Inactiv e PREDNISONE 20 MG TAB 2 tabs daily for 3 days, 1 t ab daily for 3 days, 1/2 tab daily for 2 days PREDNISONE 20 MG TAB 723715 PREDNISON E Inactive ZITHROMAX 250 MG TAB 2 po today, then 1 po q days 2-5 ZITHROMAX 250 MG TAB 9057425 AZITHROMYCIN Inactive FLAGYL 500 MG TAB 1 tablet by mouth two times daily 07/11/29 FLAGYL 500 MG TAB 896791 METRONIDAZOLE Inactive AUGMENTIN 875-125 MG TAB 1 tab by mouth twice daily with food 20 08/12/16 AUGMENTIN 875-125 MG TAB 179551 AMOXICILLIN-POT CLAVULA ANGELO Inactive NAPROXEN 500 MG TAB one tab PO BID NAPROXEN 500 MG TAB 780265 NAPROXEN Inactive PREDNISONE 20 MG TAB 2 tabs daily for 3 days, 1 t ab daily for 3 days, 1/2 tab daily for 2 days PREDNISONE 20 MG TAB 734362 PREDNISON E Inactive AZITHROMYCIN 250 MG TABS 2 po qd x 1 day, then 1 po qd x 4 days AZITHROMYCIN 250 MG TABS 0659911 AZITHROMYCIN Inactiv e PREDNISONE 20 MG TAB 2 tabs daily for 3 days, 1 t ab daily for 3 days, 1/2 tab daily for 2 days PREDNISONE 20 MG TAB 254416 PREDNISON E Inactive ZITHROMAX Z-EMIL 250 MG TABS 2 today, then 1 daily for 4 days 201 03/31/18 ZITHROMAX Z-EMIL 250 MG TABS 0167488 AZITHROMYCIN Inac tive CEFDINIR 300 MG CAPS 1 po BID x 10 days C EFDINIR 300 MG CAPS 929940 CEFDINIR Inactive CEFDINIR 300 MG CAPS 1 po BID x 10 days C EFDINIR 300 MG CAPS 486302 CEFDINIR Inactive Advance Directives Directive Description Start [...] Panel - Chemistry sodium, serum 136 mmol/L 104-679 2165/04/26 carbon dioxide, venous blood 29.9 mmol/L 21.0-32 [...] 284 10^3/MM^3 10*3/mm3 142-424 Lab Report: Chlamydia/GC APTIMA/[id number] - Lab chlamydia DNA probe NOT DETECTED NOT DETECTED Lab Report: Chlamydia/GC APTIMA/[id number] - Microbiology Neisseria gonorrhoeae DNA probe NOT [...] urine, semiquantitative Negative Neg ative [facility] UAD[facility] W/MICRO, AUTO - Chemistry protein, total [...] Negative Encounters Code Encounter Date Provider Facility CPT-89003 Level 4 Est. Patient 15:29:22 REPROGRAPHICS ASSOCIATE Arie mcqueen MD [facility] CPT-67282 Level 3 Est. Patient 15:18:16 REPROGRAPHICS ASSOCIATE Jono black [facility] CPT-70922 Level 4 Est. Patient 12:08:40 REPROGRAPHICS ASSOCIATE Steve [employer] [facility] CPT-92572 Level 3 Est. [facility] 09:24:[facility] Level 3 Est. Patient 09:12:56 CDT Arie mcqueen MD [facility] [place]-50408 Level 3 Est. Patient 16:40:54 CDT Jose Zhong MD [facility] CPT-75369 Level 2 Est. Patient 13:01:13 CDT Steve [facility]-13218 Level 3 Est. Patient 11:55:30 REPROGRAPHICS ASSOCIATE Jono black [facility] CPT-25257 Level 3 Est. Patient 09:52:36 REPROGRAPHICS ASSOCIATE Steve [employer] SCIENTIST [facility] CPT-91738 Level 3 Est. Patient 16:25:33 REPROGRAPHICS ASSOCIATE Rich Rosales MD [facility] CPT-95147 Level 3 Est. Patient 20:33:55 CDT Arie mcqueen MD [facility] CPT-96524 Level 3 Est. Patient 14:18:20 CDT Rich Rosales MD [facility] CPT-42254 Level 4 Est. Patient 09:34:31 CDT Arie mcqueen MD [facility] [place]-10159 Level 3 Est. Patient 09:08:55 REPROGRAPHICS ASSOCIATE Liliana vincent MD PhD [facility] CPT-39408 Level 3 Est. Patient 16:44:07 REPROGRAPHICS ASSOCIATE Arie mcqueen MD [facility] CPT-40659 Level 3 Est. Patient 10:44:27 CDT Arie mcqueen MD [facility] CPT-51678 Level 3 Est. Patient 08:55:41 CDT Jose Zhong MD [facility] CPT-50192 Level 3 Est. Patient 18:37:31 CDT Liliana vincent MD PhD [facility] CPT-46099 Level 3 Est. Patient 14:28:23 CDT Abelardo HERNANDEZ [facility] CPT-36055 Level 3 Est. Patient 15:18:13 REPROGRAPHICS ASSOCIATE Arie mcqueen MD [facility] CPT-22694 Level 3 Est. Patient 10:11:29 REPROGRAPHICS ASSOCIATE Arie mcqueen MD [facility] CPT-96724 Level 3 Est. Patient 10:55:57 REPROGRAPHICS ASSOCIATE Jono black DO [facility] CPT-30838 Level 3 Est. Patient 17:29:05 CDT Arie mcqueen MD [facility] Procedures Code Procedure Name Date Entry Date Standard Desc ription CPT-96767 Sono transvag pelvis non OB uterus ovari es cervix - XRAY USE ONLY 08:58:14 REPROGRAPHICS ASSOCIATE CPT-90016 UA w micro - LAB USE ONLY 16:04:56 REPROGRAPHICS ASSOCIATE 2015 CPT-03404 Wet Prep/GEN - LAB USE ONLY 16:04:56 REPROGRAPHICS ASSOCIATE 20 08/10/29 CPT-11922 First Vx - Ix admin via ID I M or jet injects without counseling by physician 16:57:10 CDT CPT-35986 Fluzone Preservative Free Intramuscular Suspension 16:57:10 CDT CPT-J0696 Rocephin 1000 mg (Ceftriaxone) 11:49:23 CDT CPT-J1040 Depo Medrol 80 mg (Methyl Prednisolone A cetate) 11:49:23 CDT CPT-J1100 Decadron 8mg (Dexamethasone) 11:49:23 CDT 2 CPT-56137 Abx/Therapy Injection 11:49:23 CDT CPT-92215 Abx/Therapy Injection 11:49:23 CDT CPT-50730 Abd compl w upright 09:07:26 REPROGRAPHICS ASSOCIATE CPT-26899 Ear Wash 16:12:47 REPROGRAPHICS ASSOCIATE CPT-OV Office Visit 11:12:01 CDT CPT-OV Office Visit 15:30:23 CDT CPT-88468 Sono pelvis non OB uterus ovaries cervix 15:50:44 CDT CPT-92916 Hand comp min 3V 16:42:32 CDT CPT-37528 Abd compl w upright 12:17:01 CDT CPT-07358 Nexplanon Placement 15:07:39 REPROGRAPHICS ASSOCIATE CPT-94660 Removal of IUD 15:07:39 REPROGRAPHICS ASSOCIATE CPT-59728 TB Tubersol 12:09:32 CDT CPT-93631 TB Tubersol 13:55:43 CDT
--- OUTSIDE RECORDS SUMMARY | 2020-03-03 08:00 | XMS REPORT | Clinical Summary ---
Author Author Admin, Diamante Marcelo Organization [facility] Address Unknown Phone Unavailable Allergies, Adverse Reactions, [...] cute pharyngitis Nausea 787.02 Active Brii Larson [employer] Nausea alone URI 465.9 Active Jono Gagnon DO Acu te upper respiratory infections of unspecified site Allergic rhinitis 477.9 Active Brii Christianson PRN Allergic rhinitis, cause unspecified Abdominal pain, right lower quadrant 789.03 Active Jose Zhong MD Abdominal pain, right lower quadrant Urinary frequency 788.41 Inactive Roseann Crawford Urinary frequency Urinary frequency 788.41 Active 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, [employer] Urinary frequency Sinusitis - acute 461.9 Active Brii Christianson PRN Acute sinusitis, unspecified Anxiety with depression 300.4 Active Glenn Larson [employer] Dysthymic disorder URI 465.9 Active Jono Gagnon [...] tab by mouth twice daily 2 TRIMETHOPRIM-SULFAMETHOXAZOLE 28180932378 Active Roseann Crawford Active NEXPLANON IMPL right arm subcutaneously ETONOGE STREL IMPL 54730864876 No Longer Active Brii Larson APRN Active TUSSIONEX PENNKINETIC ER 10-8 MG/5ML LQCR 5ml po q12hr PRN Cough HYDROCOD POLST-CHLORPHEN POLST 47645278778 No Longer Active Brii Larson APRN Active CETIRIZINE HCL 10 MG ORAL TABS 1 po qd PRN Allergies 2 CETIRIZINE HCL 42267142934 No Longer Active Brii Larson APRN Ac tive PREDNISONE 20 MG TAB 2 tabs daily for 3 days, 1 t ab daily for 3 days, 1/2 tab daily for 2 days PREDNISONE 30682374653 No Longer Active Arie Casper MD Active LOMOTIL 2.5-0.025 MG TAB 1 tab po four times a day as needed for diarrhea DIPHENOXYLATE-ATROPINE 29226238079 No Longer Active D freddy Casper MD Active ZOLOFT 50 MG TAB 1 tablet by mouth daily SERTRA LINE HCL 44387533761 No Longer Active Arie Casper MD Active NAPROXEN 500 MG TAB Take 1 tab BID NAPROXEN 332 51460436 No Longer Active Arie Casper MD Active CEFDINIR 300 MG CAPS 1 po BID x 10 days CEFDINI R 59246500990 No Longer Active Brii Larson APRN Active PREDNISONE 20 MG TAB 1 tablet daily for airway inflammation 2015 PREDNISONE 95311978374 No Longer Active Brii Larson APRN Active CEFDINIR 300 MG CAPS 1 po BID x 10 days CEFDINI R 23273326331 No Longer Active Jono Gagnon DO Active FLONASE 50 MCG/ACT SUSP 1 spray each nostril twice d aily for allergies and runny nose until gone FLUTICASONE PROPIONATE No Longe r Active Jono Gagnon DO Active ALPRAZOLAM 0.25 MG TAB 1 tablet by mouth every 8 hours as ne eded for stress ALPRAZOLAM 82017497257 No Longer Active Jono Gagnon DO Active ZITHROMAX Z-EMIL 250 MG TABS 2 today, then 1 daily for 4 days 201 03/31/18 AZITHROMYCIN 49919863937 No Longer Active Arie Casper MD Active PROTONIX 40 MG ORAL TBEC 1 po q a.m. PANTOPRAZO LE SODIUM 94158108408 Active Arie Casper MD Active PREDNISONE 20 MG TAB 2 tabs daily for 3 days, 1 t ab daily for 3 days, 1/2 tab daily for 2 days PREDNISONE 47031126239 No Longer Active Brii Larson APRN Active PREDNISONE 20 MG TAB 1 tablet twice daily for 2 d ays, then 1 tablet once daily for 2 days PREDNISONE 38972887194 No Longer Active Brii Larson APRN Active PROMETHAZINE HCL 12.5 MG TABS 1 tablet by mouth every 6 hours as needed for nausea/vomiting PROMETHAZINE HCL 00701941771 No Longe r Active Jono Gagnon DO Active CITRATE OF MAGNESIA ORAL SOLN 1 bottle today for constipation 20 07/10/15 MAGNESIUM CITRATE 42446089979 No Longer Active Jono Gagnon DO Active ZOFRAN 4 MG ORAL TABS 1 TAB PO Q 6 HRS PRN NAUSEA 2014 ONDANSETRON HCL 91706820880 No Longer Active Brii Larson APRN A ctive LOMOTIL 2.5-0.025 MG TAB 1 to 2 four times a day as needed f or diarrhea DIPHENOXYLATE-ATROPINE 85430648933 No Longer Active January Larson APRN Active AMOXICILLIN 500 MG TABS 2 tabs twice a day for 10 days AMOXICILLIN 66241458042 No Longer Active Brii Larson APRN Acti ve CYCLOBENZAPRINE HCL 10 MG TABS 1/2 - 1 tablet by mouth three times daily as needed for muscle spasm/pain CYCLOBENZAPRINE HCL 95740102523 No Longer Active Arie Casper MD Active LOMOTIL 2.5-0.025 MG TABS 1 to 2 four times a day as needed for diarrhea DIPHENOXYLATE-ATROPINE 23899067034 No Longer Active Fozia Casper MD Active MACROBID 100 MG CAP 1 cap by mouth twice daily NITROFURANTOIN MONOHYD MACRO 35356339593 No Longer Active Arie Casper MD Active ZYRTEC ALLERGY 10 MG CAPS 1 po qd CETIRIZINE HCL 81317527032 No Longer Active Arie Casper MD Active AZITHROMYCIN 250 MG TABS 2 po qd x 1 day, then 1 po qd x 4 days AZITHROMYCIN 40352110914 No Longer Active Jillina Florina [employer] Active PREDNISONE 20 MG TAB 2 tabs daily for 3 days, 1 t ab daily for 3 days, 1/2 tab daily for 2 days PREDNISONE 43770337533 No Longer Active Jillina Fradeepl [employer] Active PROMETHAZINE HCL 25 MG TABS 1 four times a day as needed for vomiting PROMETHAZINE HCL 46139563060 No Longer Active Myrna Roberto MD Active BACTRIM DS 800-160 MG TABS 1 twice a day SULFAMETHOXAZOLE-TRIMETHOPRIM 86564422322 No Longer Active Myrna Roberto MD Active VICKS DAYQUIL SEVERE COLD/FLU TABS 1 tab every 6 hours prn 12/10 [id number] TABS 96399364744 No Longer Active Myrna leigh MD Active GUAIFENESIN-CODEINE 100-10 MG/5ML ORAL SYRP 2 tsp every 6 hours prn GUAIFENESIN-CODEINE 88181529829 No Longer Active Myrna Roberto MD Active NAPROXEN 500 MG TAB one tab PO BID NAPROXEN 332 25603113 No Longer Active Myrna Roberto MD Active AUGMENTIN 875-125 MG TAB 1 tab by mouth twice daily with food 20 08/12/16 AMOXICILLIN-POT CLAVULANATE 61242975233 No Longer Active Liliana Estrada MD PhD Active AMOXICILLIN 500 MG CAP 1 tab by mouth 3 times daily 08/12/16 AMOXICILLIN 99513102775 No Longer Active Liliana Estrada MD PhD Acti ve TESSALON PERLES 100 MG CAP 1 tablet by mouth 3 times daily 11/01 BENZONATATE 09104032927 No Longer Active Liliana Estrada MD PhD Active FLAGYL 500 MG TAB 1 tablet by mouth two times daily 07/11/29 METRONIDAZOLE 99865990699 No Longer Active Nilam Weber Active ZITHROMAX 250 MG TAB 2 po today, then 1 po q days 2-5 AZITHROMYCIN 14903669456 No Longer Active Arie Casper MD Acti ve VITAMINS 0.8 MG TABS take 1 tab po qday 08/08 [id number] 92844445383 No Longer Active Arie Casper MD Active IBUPROFEN 800 MG TABS take one po Q 8 hours IBU PROFEN 13887118254 No Longer Active Arie Casper MD Active [facility] TUSSIN COUGH/COLD CF 5-10-100 MG/5ML LIQD 2 teaspoons ev eliud 4 hours [id number] 20384930138 No Longer Active Blaine Casper MD Active COMTREX COLD/COUGH DAY/NITE MS 5-2-10-325 MG MISC 2 caps deja ry 4 hours [id number] 32850451525 No Longer Active Da aleksandra Casper MD Active CHLORASEPTIC MAX SORE THROAT 15-10 MG LOZG 1 every 2 hours prn 2 BENZOCAINE-MENTHOL 99632867690 No Longer Active Arie Marcelo Active PREDNISONE 20 MG TAB 2 tabs daily for 3 days, 1 t ab daily for 3 days, 1/2 tab daily for 2 days PREDNISONE 35779582089 No Longer Active Jose Zhong MD Active AZITHROMYCIN 250 MG TABS 2 po qd x 1 day, then 1 po qd x 4 days AZITHROMYCIN 11535248910 No Longer Active Jose Zhong MD Active ZOFRAN ODT 4 MG TBDP 1 po q6hr PRN Nausea ONDAN SETRON 67709462902 No Longer Active Rich Rosales MD Active ZOFRAN 4 MG TABS 1 tablet every 4 hours ONDANSE JERRELL HCL 94055464933 No Longer Active Rich Rosales MD Active MUCINEX 600 MG [id number] Take 1-2 tablets every 12 hours GUAIFENESIN 13200405295 No Longer Active Rich Rosales MD Activ e BACTRIM 400-80 MG TABS take one po BID SULFAMETHOXAZOLE-TRIMETHOPRIM 19129521036 No Longer Active Abelardo HERNANDEZ Active AZITHROMYCIN 500 MG TABS 1 PO q day x 6 days AZ ITHROMYCIN 06663251309 No Longer Active Tin HERNANDEZ Active ZITHROMAX 250 MG TAB 2 po today, then 1 po q days 2-5 AZITHROMYCIN 50894566784 No Longer Active Arie Casper MD Acti ve ZITHROMAX 250 MG TAB 2 po today, then 1 po q days 2-5 AZITHROMYCIN 74289025122 No Longer Active Arie Casper MD Acti ve AMOXICILLIN 500 MG CAP 1 tab by mouth 3 times daily 20 09/23/20 AMOXICILLIN 91277901831 No Longer Active Arie Casper MD Acti ve BACTRIM DS 800-160 MG TAB 1 tab by mouth twice daily 2 TRIMETHOPRIM-SULFAMETHOXAZOLE 25213052129 No Longer Active Arie Casper MD Active AMOXICILLIN 500 MG TABS take 1 tab po TID AMOXI CILLIN 23756541840 No Longer Active Arie Casper MD Active BACTRIM DS 800-160 MG TAB 1 tab by mouth twice daily 2 BACTRIM DS 800-160 MG TAB 19821226 TRIMETHOPRIM-SULFAMETHOXAZOLE Inac tive MUCINEX 600 MG [id number] Take 1-2 tablets every 12 hours MUCINEX 600 MG [id number] GUAIFENESIN Inactive ZOFRAN 4 MG TABS 1 tablet every 4 hours ZOFRAN 4 MG TABS 186485 ONDANSETRON HCL Inactive ZOFRAN ODT 4 MG TBDP 1 po q6hr PRN Nausea ZOFRAN ODT 4 MG TBDP 929492 ONDANSETRON Inactive CHLORASEPTIC MAX SORE THROAT 15-10 MG LOZG 1 every 2 hours prn 2 CHLORASEPTIC MAX SORE THROAT 15-10 MG LOZG BENZO ARINA-MENTHOL Inactive COMTREX COLD/COUGH DAY/NITE MS 5-2-10-325 MG MISC 2 caps deja ry 4 hours COMTREX COLD/COUGH DAY/NITE MS 5-2-10-325 MG MIS C [id number] Inactive [facility] TUSSIN COUGH/COLD CF 5-10-100 MG/5ML LIQD 2 teaspoons ev eliud 4 hours [facility] TUSSIN COUGH/COLD CF 5-10-100 MG/5ML LIQD [id number] Inactive IBUPROFEN 800 MG TABS take one po Q 8 hours IBUPROFEN 800 MG TABS IBUPROFEN Inactive VITAMINS 0.8 MG TABS take 1 tab po qday 08/08 VITAMINS 0.8 MG TABS [id number] Inactive TESSALON PERLES 100 MG CAP 1 tablet by mouth 3 times daily 11/01 TESSALON PERLES 100 MG CAP 165400 BENZONATATE Inact zaid AMOXICILLIN 500 MG CAP 1 tab by mouth 3 times daily 20 08/12/16 AMOXICILLIN 500 MG CAP 212292 AMOXICILLIN Inactive GUAIFENESIN-CODEINE 100-10 MG/5ML ORAL SYRP 2 tsp every 6 hours prn GUAIFENESIN-CODEINE 100-10 MG/5ML ORAL SYRP 127682 GUAIFENESIN-CODEINE Inactive VICKS DAYQUIL SEVERE COLD/FLU TABS 1 tab every 6 hours prn 12/10 VICKS DAYQUIL SEVERE COLD/FLU TABS PHENYLEPHRINE -DM-GG-APAP TABS Inactive BACTRIM DS 800-160 MG TABS 1 twice a day BACTRIM DS 800- 160 MG TABS 016729 SULFAMETHOXAZOLE-TRIMETHOPRIM Inactive PROMETHAZINE HCL 25 MG TABS 1 four times a day as needed for vomiting PROMETHAZINE HCL 25 MG TABS 045085 PROMETHAZINE HCL Inactive ZYRTEC ALLERGY 10 MG CAPS 1 po qd ZY RTEC ALLERGY 10 MG CAPS CETIRIZINE HCL Inactive MACROBID 100 MG CAP 1 cap by mouth twice daily MACROBID 100 MG CAP 3832126 NITROFURANTOIN MONOHYD MACRO Inactive LOMOTIL 2.5-0.025 MG TABS 1 to 2 four times a day as needed for diarrhea LOMOTIL 2.5-0.025 MG TABS 8774233 DIPHENOXYLATE-A TROPINE Inactive CYCLOBENZAPRINE HCL 10 MG TABS 1/2 - 1 tablet by mouth three times daily as needed for muscle spasm/pain CYCLOBENZAP RINE HCL 10 MG TABS 520920 CYCLOBENZAPRINE HCL Inactive AMOXICILLIN 500 MG TABS 2 tabs twice a day for 10 days AMOXICILLIN 500 MG TABS 679452 AMOXICILLIN Inactive LOMOTIL 2.5-0.025 MG TAB 1 to 2 four times a day as needed f or diarrhea LOMOTIL 2.5-0.025 MG TAB 7188903 DIPHENOXYLATE-AT ROPINE Inactive ZOFRAN 4 MG ORAL TABS 1 TAB PO Q 6 HRS PRN NAUSEA 2014 ZOFRAN 4 MG ORAL TABS 745334 ONDANSETRON HCL Inactive CITRATE OF MAGNESIA ORAL SOLN 1 bottle today for constipation 20 07/10/15 CITRATE OF MAGNESIA ORAL SOLN 0201900 MAGNESIUM CITRATE Inactive PROMETHAZINE HCL 12.5 MG TABS 1 tablet by mouth every 6 hours as needed for nausea/vomiting PROMETHAZINE HCL 12.5 MG TABS 965817 PROMETHAZINE HCL Inactive PREDNISONE 20 MG TAB 1 tablet twice daily for 2 d ays, then 1 tablet once daily for 2 days PREDNISONE 20 MG TAB 382779 PREDNISONE Inac tive ALPRAZOLAM 0.25 MG TAB 1 tablet by mouth every 8 hours as ne eded for stress ALPRAZOLAM 0.25 MG TAB 615647 ALPRAZOLAM Inact zaid FLONASE 50 MCG/ACT SUSP 1 spray each nostril twice d aily for allergies and runny nose until gone FLONASE 50 MCG/ACT SUSP 7724490 FLUTICASONE PROPIONATE Inactive PREDNISONE 20 MG TAB 1 tablet daily for airway inflammation 2015 PREDNISONE 20 MG TAB 522772 PREDNISONE Inactive NAPROXEN 500 MG TAB Take 1 tab BID NAPROXEN 500 MG TAB 146316 NAPROXEN Inactive ZOLOFT 50 MG TAB 1 tablet by mouth daily ZOLOFT 50 MG TAB 006432 SERTRALINE HCL Inactive LOMOTIL 2.5-0.025 MG TAB 1 tab po four times a day as needed for diarrhea LOMOTIL 2.5-0.025 MG TAB 8770290 DIPHENOXYLATE-AT ROPINE Inactive CETIRIZINE HCL 10 MG ORAL TABS 1 po qd PRN Allergies 2 CETIRIZINE HCL 10 MG ORAL TABS 5377438 CETIRIZINE HCL Inactive TUSSIONEX PENNKINETIC ER 10-8 MG/5ML LQCR 5ml po q12hr PRN Cough TUSSIONEX PENNKINETIC ER 10-8 MG/5ML LQCR HYDROCOD POLST-CHLORPHEN POLST Inactive NEXPLANON IMPL right arm subcutaneously NEXPLANO N IMPL ETONOGESTREL IMPL Inactive AMOXICILLIN 500 MG TABS take 1 tab po TID AMOXICILLIN 500 MG TABS 927678 AMOXICILLIN Inactive AMOXICILLIN 500 MG CAP 1 tab by mouth 3 times daily 09/23/20 AMOXICILLIN 500 MG CAP 173692 AMOXICILLIN Inactive ZITHROMAX 250 MG TAB 2 po today, then 1 po q days 2-5 ZITHROMAX 250 MG TAB 060573 AZITHROMYCIN Inactive ZITHROMAX 250 MG TAB 2 po today, then 1 po q days 2-5 ZITHROMAX 250 MG TAB 343392 AZITHROMYCIN Inactive AZITHROMYCIN 500 MG TABS 1 PO q day x 6 days 3 AZITHROMYCIN 500 MG TABS 8511402 AZITHROMYCIN Inactive BACTRIM 400-80 MG TABS take one po BID BA CTRIM 400-80 MG TABS 494690 SULFAMETHOXAZOLE-TRIMETHOPRIM Inactive AZITHROMYCIN 250 MG TABS 2 po qd x 1 day, then 1 po qd x 4 days AZITHROMYCIN 250 MG TABS 703484 AZITHROMYCIN Inactiv e PREDNISONE 20 MG TAB 2 tabs daily for 3 days, 1 t ab daily for 3 days, 1/2 tab daily for 2 days PREDNISONE 20 MG TAB 834432 PREDNISON E Inactive ZITHROMAX 250 MG TAB 2 po today, then 1 po q days 2-5 ZITHROMAX 250 MG TAB 308171 AZITHROMYCIN Inactive FLAGYL 500 MG TAB 1 tablet by mouth two times daily 07/11/29 FLAGYL 500 MG TAB 888211 METRONIDAZOLE Inactive AUGMENTIN 875-125 MG TAB 1 tab by mouth twice daily with food 20 08/12/16 AUGMENTIN 875-125 MG TAB 510370 AMOXICILLIN-POT CLAVULA ANGELO Inactive NAPROXEN 500 MG TAB one tab PO BID NAPROXEN 500 MG TAB 993047 NAPROXEN Inactive PREDNISONE 20 MG TAB 2 tabs daily for 3 days, 1 t ab daily for 3 days, 1/2 tab daily for 2 days PREDNISONE 20 MG TAB 233987 PREDNISON E Inactive AZITHROMYCIN 250 MG TABS 2 po qd x 1 day, then 1 po qd x 4 days AZITHROMYCIN 250 MG TABS 440556 AZITHROMYCIN Inactiv e PREDNISONE 20 MG TAB 2 tabs daily for 3 days, 1 t ab daily for 3 days, 1/2 tab daily for 2 days PREDNISONE 20 MG TAB 995702 PREDNISON E Inactive ZITHROMAX Z-EMIL 250 MG TABS 2 today, then 1 daily for 4 days 201 03/31/18 ZITHROMAX Z-EMIL 250 MG TABS 963102 AZITHROMYCIN Inac tive CEFDINIR 300 MG CAPS [...] for 2 days PREDNISONE 20 MG TAB 958559 PREDNISON E Inactive Advance Directives Directive Description [...] Value Unit Range Description Lab Report: Chlamydia/GC APTIMA/[id number] - Lab chlamydia DNA probe NOT DETECTED NOT DETECTED Lab Report: Chlamydia/GC APTIMA/[id number] - Microbiology Neisseria gonorrhoeae DNA probe NOT [...] 5.0-8.5 Encounters Code Encounter Date Provider Facility CPT-14149 Level 3 Est. Patient 15:40:28 CDT Steve [employer] [facility] CPT-48690 Level 3 Est. Patient 16:40:36 CDT Arie mcqueen MD [facility] CPT-88174 Level 4 Est. Patient 15:29:22 TERMITE CONTROL TECHNICIAN Arie mcqueen MD [facility] CPT-08220 Level 3 Est. Patient 15:18:16 TERMITE CONTROL TECHNICIAN Jono black DO [facility] CPT-79498 Level 4 Est. Patient 12:08:40 TERMITE CONTROL TECHNICIAN Steve [facility] CPT-57639 Level 3 Est. Patient 09:24:42 CDT Steve [employer] [facility] CPT-59257 Level 3 Est. Patient 09:12:56 CDT Arie mcqueen MD [facility] CPT-64967 Level 3 Est. Patient 16:40:54 CDT Jose Zhong MD [facility] CPT-68632 Level 2 Est. Patient 13:01:13 CDT Steve [facility] CPT-55597 Level 3 Est. Patient 11:55:30 TERMITE CONTROL TECHNICIAN Jono black [facility] CPT-48356 Level 3 Est. Patient 09:52:36 TERMITE CONTROL TECHNICIAN Steve PAREKHN [facility] CPT-93122 Level 3 Est. Patient 16:25:33 TERMITE CONTROL TECHNICIAN Rich Rosales MD [facility] CPT-25957 Level 3 Est. Patient 20:33:55 CDT Arie mcqueen MD [facility] CPT-13340 Level 3 Est. Patient 14:18:20 CDT Rich Rosales MD [facility] CPT-43143 Level 4 Est. Patient 09:34:31 CDT Arie mcqueen MD [facility]-23037 Level 3 Est. Patient 09:08:55 TERMITE CONTROL TECHNICIAN Liliana vincent MD PhD [facility] CPT-02958 Level 3 Est. Patient 16:44:07 TERMITE CONTROL TECHNICIAN Arie mcqueen MD [facility] CPT-62100 Level 3 Est. Patient 10:44:27 CDT Arie mcqueen MD [facility]-89302 Level 3 Est. Patient 08:55:41 CDT Jose Zhong MD [facility] CPT-24477 Level 3 Est. Patient 18:37:31 CDT Liliana vincent MD PhD [facility]-63654 Level 3 Est. Patient 14:28:23 CDT Abelardo HERNANDEZ [facility] CPT-86996 Level 3 Est. Patient 15:18:13 TERMITE CONTROL TECHNICIAN Arie mcqueen MD [facility]-76310 Level 3 Est. Patient 10:11:29 TERMITE CONTROL TECHNICIAN Arie mcqueen MD [facility] CPT-83564 Level 3 Est. Patient 10:55:57 TERMITE CONTROL TECHNICIAN Jono black DO [facility] CPT-72417 Level 3 Est. Patient 17:29:05 CDT Arie mcqueen MD [facility] Procedures Code Procedure Name Date Entry Date Standard Desc ription CPT-47978 Nexplanon Removal 15:40:28 CDT CPT-01708 Sono transvag pelvis non OB uterus ovari es cervix - XRAY USE ONLY 08:58:14 TERMITE CONTROL TECHNICIAN CPT-21922 UA w micro - LAB USE ONLY 16:04:56 TERMITE CONTROL TECHNICIAN 2015 CPT-95320 Wet Prep/GEN - LAB USE ONLY 16:04:56 TERMITE CONTROL TECHNICIAN 20 08/10/29 CPT-97560 First Vx - Ix admin via ID I M or jet injects without counseling by physician 16:57:10 CDT CPT-83201 Fluzone Preservative Free Intramuscular Suspension 16:57:10 CDT CPT-J0696 Rocephin 1000 mg (Ceftriaxone) 11:49:23 CDT CPT-J1040 Depo Medrol 80 mg (Methyl Prednisolone A cetate) 11:49:23 CDT CPT-J1100 Decadron 8mg (Dexamethasone) 11:49:23 CDT 2 CPT-35602 Abx/Therapy Injection 11:49:23 CDT CPT-32347 Abx/Therapy Injection 11:49:23 CDT CPT-55710 Abd compl w upright 09:07:26 TERMITE CONTROL TECHNICIAN CPT-08123 Ear Wash 16:12:47 TERMITE CONTROL TECHNICIAN CPT-OV Office Visit 11:12:01 CDT CPT-OV Office Visit 15:30:23 CDT CPT-67112 Sono pelvis non OB uterus ovaries cervix 15:50:44 CDT CPT-23929 Hand comp min 3V 16:42:32 CDT CPT-96288 Abd compl w upright 12:17:01 CDT CPT-88884 Nexplanon Placement 15:07:39 TERMITE CONTROL TECHNICIAN CPT-37539 Removal of IUD 15:07:39 TERMITE CONTROL TECHNICIAN CPT-56442 TB Tubersol 12:09:32 CDT CPT-00819 TB Tubersol 13:55:43 CDT
--- OUTSIDE RECORDS SUMMARY | 2020-03-03 08:00 | XMS REPORT | Clinical Summary ---
[...] TAB one tab PO BID NAPROXEN 332 [id number] Active Myrna Roberto MD Active LOMOTIL 2.5-0.025 MG TABS 1 to 2 four times a day as needed for diarrhea DIPHENOXYLATE-ATROPINE 54896307748 Active Rich mcintosh MD Active PROMETHAZINE HCL 25 MG TABS 1 four times a day as needed for vomiting PROMETHAZINE HCL 42557338695 Active Rich Rosales MD Active BACTRIM DS 800-160 MG TABS 1 twice a day SULFAMETHOXAZOLE-TRIMETHOPRIM 99671286598 Active Rich Rosales MD Active AUGMENTIN 875-125 MG TAB 1 tab by mouth twice daily with food 20 08/12/16 AMOXICILLIN-POT CLAVULANATE 83220148691 No Longer Active Liliana Estrada MD PhD Active CYCLOBENZAPRINE HCL 10 MG TABS 1/2 - 1 tablet by mouth three times daily as needed for muscle spasm/pain CYCLOBENZAPRINE HCL 95462 712291 Active Liliana Estrada MD PhD Active GUAIFENESIN-CODEINE 100-10 MG/5ML ORAL SYRP 2 tsp every 6 hours prn GUAIFENESIN-CODEINE 93538396498 Active Liliana Estrada MD PhD Active VICKS DAYQUIL SEVERE COLD/FLU TABS 1 tab every 6 hours prn [id number]-[id number]-APAP TABS 68925982354 Active Liliana Estrada MD PhD Active AMOXICILLIN 500 MG CAP 1 tab by mouth 3 times daily 08/12/16 AMOXICILLIN 19388650226 No Longer Active Liliana Estrada MD PhD Acti ve TESSALON PERLES 100 MG CAP 1 tablet by mouth 3 times daily 11/01 BENZONATATE 47045003726 No Longer Active Liliana Estrada MD PhD Active FLAGYL 500 MG TAB 1 tablet by mouth two times daily 07/11/29 METRONIDAZOLE 80102242883 No Longer Active Nilam Weber Active ZITHROMAX 250 MG TAB 2 po today, then 1 po q days 2-5 AZITHROMYCIN 66479099444 No Longer Active Arie Casper MD Acti ve VITAMINS 0.8 MG TABS take 1 tab po qday 08/08 [id number] 68843757258 No Longer Active Arie Casper MD Active IBUPROFEN 800 MG TABS take one po Q 8 hours IBU PROFEN 29071401015 No Longer Active Arie Casper MD Active [facility] TUSSIN COUGH/COLD CF 5-10-100 MG/5ML LIQD 2 teaspoons ev eliud 4 hours [id number] 76154926897 No Longer Active Blaine Casper MD Active COMTREX COLD/COUGH DAY/NITE MS 5-2-10-325 MG MISC 2 caps deja ry 4 hours [id number]-APAP 94842770178 No Longer Active Da aleksandra Casper MD Active CHLORASEPTIC MAX SORE THROAT 15-10 MG LOZG 1 every 2 hours prn 2 BENZOCAINE-MENTHOL 51147613501 No Longer Active Arie Marcelo Active PREDNISONE 20 MG TAB 2 tabs daily for 3 days, 1 t ab daily for 3 days, 1/2 tab daily for 2 days PREDNISONE 09313406154 No Longer Active Jose Zhong MD Active AZITHROMYCIN 250 MG TABS 2 po qd x 1 day, then 1 po qd x 4 days AZITHROMYCIN 93814813669 No Longer Active Jose Zhong MD Active ZOFRAN ODT 4 MG TBDP 1 po q6hr PRN Nausea ONDAN SETRON 33774543521 No Longer Active Rich Rosales MD Active ZOFRAN 4 MG TABS 1 tablet every 4 hours ONDANSE JERRELL HCL 58358211534 No Longer Active Rich Rosales MD Active MUCINEX 600 MG [id number] Take 1-2 tablets every 12 hours GUAIFENESIN 93780346189 No Longer Active Rich Rosales MD Activ e BACTRIM 400-80 MG TABS take one po BID SULFAMETHOXAZOLE-TRIMETHOPRIM 37555012134 No Longer Active Abelardo HERNANDEZ Active AZITHROMYCIN 500 MG TABS 1 PO q day x 6 days AZ ITHROMYCIN 76126844058 No Longer Active Tin HERNANDEZ Active ZITHROMAX 250 MG TAB 2 po today, then 1 po q days 2-5 AZITHROMYCIN 52533412978 No Longer Active Arie Casper MD Acti ve ZITHROMAX 250 MG TAB 2 po today, then 1 po q days 2-5 AZITHROMYCIN 37292096598 No Longer Active Arie Casper MD Acti ve AMOXICILLIN 500 MG CAP 1 tab by mouth 3 times daily 09/23/20 AMOXICILLIN 93210034731 No Longer Active Arie Capser MD Acti ve BACTRIM DS 800-160 MG TAB 1 tab by mouth twice daily 2 TRIMETHOPRIM-SULFAMETHOXAZOLE 35032557489 No Longer Active Arie Casper MD Active AMOXICILLIN 500 MG TABS take 1 tab po TID AMOXI CILLIN 23394993908 No Longer Active Arie Casper MD Active BACTRIM DS 800-160 MG TAB 1 tab by mouth twice daily 2 BACTRIM DS 800-160 MG TAB TRIMETHOPRIM-SULFAMETHOXAZOLE Inac tive MUCINEX 600 MG [id number] Take 1-2 tablets every 12 hours MUCINEX 600 MG [id number] GUAIFENESIN Inactive ZOFRAN 4 MG TABS 1 tablet every 4 hours ZOFRAN 4 MG TABS 074159 ONDANSETRON HCL Inactive ZOFRAN ODT 4 MG TBDP 1 po q6hr PRN Nausea ZOFRAN ODT 4 MG TBDP 010416 ONDANSETRON Inactive CHLORASEPTIC MAX SORE THROAT 15-10 MG LOZG 1 every 2 hours prn 2 014/04/30 CHLORASEPTIC MAX SORE THROAT 15-10 MG LOZG BENZO ARINA-MENTHOL Inactive COMTREX COLD/COUGH DAY/NITE MS 5-2-10-325 MG MISC 2 caps deja ry 4 hours COMTREX COLD/COUGH DAY/NITE MS 5-2-10-325 MG MIS C [id number] Inactive [facility] TUSSIN COUGH/COLD CF 5-10-100 MG/5ML LIQD 2 teaspoons ev eliud 4 hours [facility] TUSSIN COUGH/COLD CF 5-10-100 MG/5ML LIQD [id number] Inactive IBUPROFEN 800 MG TABS take one po Q 8 hours IBUPROFEN 800 MG TABS 805396 IBUPROFEN Inactive VITAMINS 0.8 MG TABS take 1 tab po qday 08/08 VITAMINS 0.8 MG TABS [id number] Inactive TESSALON PERLES 100 MG CAP 1 tablet by mouth 3 times daily 11/01 TESSALON PERLES 100 MG CAP 113419 BENZONATATE Inact zaid AMOXICILLIN 500 MG CAP 1 tab by mouth 3 times daily 08/12/16 AMOXICILLIN 500 MG CAP 932971 AMOXICILLIN Inactive AMOXICILLIN 500 MG TABS take 1 tab po TID AMOXICILLIN 500 MG TABS 621124 AMOXICILLIN Inactive AMOXICILLIN 500 MG CAP 1 tab by mouth 3 times daily 09/23/20 AMOXICILLIN 500 MG CAP 350335 AMOXICILLIN Inactive ZITHROMAX 250 MG TAB 2 po today, then 1 po q days 2-5 ZITHROMAX 250 MG TAB 0426888 AZITHROMYCIN Inactive ZITHROMAX 250 MG TAB 2 po today, then 1 po q days 2-5 ZITHROMAX 250 MG TAB 6376270 AZITHROMYCIN Inactive AZITHROMYCIN 500 MG TABS 1 PO q day x 6 days 3 AZITHROMYCIN 500 MG TABS 3945597 AZITHROMYCIN Inactive BACTRIM 400-80 MG TABS take one po BID BA CTRIM 400-80 MG TABS 801972 SULFAMETHOXAZOLE-TRIMETHOPRIM Inactive AZITHROMYCIN 250 MG TABS 2 po qd x 1 day, then 1 po qd x 4 days AZITHROMYCIN 250 MG TABS 4893645 AZITHROMYCIN Inactiv e PREDNISONE 20 MG TAB 2 tabs daily for 3 days, 1 t ab daily for 3 days, 1/2 tab daily for 2 days PREDNISONE 20 MG TAB 072914 PREDNISON E Inactive ZITHROMAX 250 MG TAB 2 po today, then 1 po q days 2-5 ZITHROMAX 250 MG TAB 4988236 AZITHROMYCIN Inactive FLAGYL 500 MG TAB 1 tablet by mouth two times daily 07/11/29 FLAGYL 500 MG TAB 721733 METRONIDAZOLE Inactive AUGMENTIN 875-125 MG TAB 1 tab by mouth twice daily with food 20 08/12/16 AUGMENTIN 875-125 MG TAB 170418 AMOXICILLIN-POT CLAVULA ANGELO Inactive Advance Directives Directive [...] 214 10^3/MM^3 10*3/mm3 142-424 Lab Report: Chlamydia/GC APTIMA/[id number] - Lab chlamydia DNA probe NOT DETECTED NOT DETECTED Lab Report: Chlamydia/GC APTIMA/[id number] - Microbiology Neisseria gonorrhoeae DNA probe NOT [...] 5.0-8.5 Encounters Code Encounter Date Provider Facility CPT-78116 Level 3 Est. Patient 14:18:20 CDT Rich Rosales MD [facility] CPT-23534 Level 4 Est. Patient 09:34:31 CDT Arie mcqueen MD [facility]-85210 Level 3 Est. Patient 09:08:55 H[employer]PITAL CLEANING SPECIALIST Liliana vincent MD PhD [facility]06111 Level 3 Est. Patient 16:44:07 HOSPITAL CLEANING SPECIALIST Arie mcqueen MD [facility] CPT-10001 Level 3 Est. Patient 10:44:27 CDT Arie mcqueen MD [facility] CPT-18269 Level 3 Est. Patient 08:55:41 CDT Jose Zhong MD [facility]-81270 Level 3 Est. Patient 18:37:31 CDT Liliana vincent MD PhD [facility]-32316 Level 3 Est. Patient 14:28:23 CDT Abelardo HERNANDEZ [facility]-30745 Level 3 Est. Patient 15:18:13 HOSPITAL CLEANING SPECIALIST Arie mcqueen MD [facility]-14682 Level 3 Est. Patient 10:11:29 HOSPITAL CLEANING SPECIALIST Arie mcqueen MD [facility]-91656 Level 3 Est. Patient 10:55:57 HOSPITAL CLEANING SPECIALIST Jono black DO [facility] CPT-65245 Level 3 Est. Patient 17:29:05 CDT Arie mcqueen MD [facility] Procedures Code Procedure Name Date Entry Date Standard Desc ription CPT-OV Office Visit 15:30:23 CDT CPT-85491 Sono pelvis non OB uterus ovaries cervix 15:50:44 CDT CPT-27807 Hand comp min 3V 16:42:32 CDT CPT-48211 Abd compl w upright 12:17:01 CDT CPT-39629 Nexplanon Placement 15:07:39 HOSPITAL CLEANING SPECIALIST CPT-17464 Removal of IUD 15:07:39 HOSPITAL CLEANING SPECIALIST CPT-03321 TB Tubersol 12:09:32 CDT CPT-83097 TB Tubersol 13:55:43 CDT
--- OUTSIDE RECORDS SUMMARY | 2020-03-03 08:01 | XMS REPORT | Clinical Summary ---
Author Author Admin, Diamante Marcelo Organization [employer] Address Unknown Phone Unavailable Allergies, Adverse Reactions, [...] site Abdominal pain 789.00 Active Brii Larson [employer] Abdominal pain, unspecified site Diarrhea 787.91 Resolved [...] cute pharyngitis Nausea 787.02 Active Brii Larson [employer] Nausea alone URI 465.9 Active Jono [...] Anxiety with depression 300.4 Active Glenn Larson [employer] Dysthymic disorder URI 465.9 Active Jono [...] a day as needed for diarrhea DIPHENOXYLATE-ATROPINE 22122206302 No Longer Active Fozia Casper MD Active ZOLOFT 50 MG TAB 1 tablet by mouth daily SERTRA LINE HCL 48521067927 No Longer Active Arie Casper MD Active NAPROXEN 500 MG TAB Take 1 tab BID NAPROXEN 332 66032205 No Longer Active Arie Casper MD Active NEXPLANON IMPL Left arm subcutaneously ETONOGES TREL IMPL 02539141722 Active Brii Larson APRN Active CEFDINIR 300 MG CAPS 1 po BID x 10 days CEFDINI R 52233572252 No Longer Active Brii Larson APRN Active PREDNISONE 20 MG TAB 1 tablet daily for airway inflammation 2015 PREDNISONE 62038505487 No Longer Active Brii Larson APRN Active CEFDINIR 300 MG CAPS 1 po BID x 10 days CEFDINI R 97991998462 No Longer Active Jono Gagnon DO Active FLONASE 50 MCG/ACT SUSP 1 spray each nostril twice d aily for allergies and runny nose until gone FLUTICASONE PROPIONATE No Longe r Active Jono Gagnon DO Active ALPRAZOLAM 0.25 MG TAB 1 tablet by mouth every 8 hours as ne eded for stress ALPRAZOLAM 04162632949 No Longer Active Jono Gagnon DO Active ZITHROMAX Z-EMIL 250 MG TABS 2 today, then 1 daily for 4 days 201 03/31/18 AZITHROMYCIN 19081860903 No Longer Active Arie Casper MD Active PROTONIX 40 MG ORAL TBEC 1 po q a.m. PANTOPRAZO LE SODIUM 22265596838 Active Arie Casper MD Active PREDNISONE 20 MG TAB 2 tabs daily for 3 days, 1 t ab daily for 3 days, 1/2 tab daily for 2 days PREDNISONE 10943525821 No Longer Active Brii Larson APRN Active PREDNISONE 20 MG TAB 1 tablet twice daily for 2 d ays, then 1 tablet once daily for 2 days PREDNISONE 91164226149 No Longer Active Brii Larson APRN Active PROMETHAZINE HCL 12.5 MG TABS 1 tablet by mouth every 6 hours as needed for nausea/vomiting PROMETHAZINE HCL 52657717501 No Longe r Active Jono Gagnon DO Active CITRATE OF MAGNESIA ORAL SOLN 1 bottle today for constipation 20 07/10/15 MAGNESIUM CITRATE 11161121173 No Longer Active Jono Gagnon DO Active ZOFRAN 4 MG ORAL TABS 1 TAB PO Q 6 HRS PRN NAUSEA 2014 ONDANSETRON HCL 44136858256 No Longer Active Brii Larson APRN A ctive LOMOTIL 2.5-0.025 MG TAB 1 to 2 four times a day as needed f or diarrhea DIPHENOXYLATE-ATROPINE 05361260536 No Longer Active M kait Larson APRN Active AMOXICILLIN 500 MG TABS 2 tabs twice a day for 10 days AMOXICILLIN 48925134677 No Longer Active Brii Larson APRN Acti ve CYCLOBENZAPRINE HCL 10 MG TABS 1/2 - 1 tablet by mouth three times daily as needed for muscle spasm/pain CYCLOBENZAPRINE HCL 40393998891 No Longer Active Arie Casper MD Active LOMOTIL 2.5-0.025 MG TABS 1 to 2 four times a day as needed for diarrhea DIPHENOXYLATE-ATROPINE 02240946403 No Longer Active D freddy Casper MD Active MACROBID 100 MG CAP 1 cap by mouth twice daily NITROFURANTOIN MONOHYD MACRO 59532476141 No Longer Active Arie Casper MD Active ZYRTEC ALLERGY 10 MG CAPS 1 po qd CETIRIZINE HCL 70871016344 No Longer Active Arie Casper MD Active AZITHROMYCIN 250 MG TABS 2 po qd x 1 day, then 1 po qd x 4 days AZITHROMYCIN 79406467780 No Longer Active Jessica Heaton APRN Active PREDNISONE 20 MG TAB 2 tabs daily for 3 days, 1 t ab daily for 3 days, 1/2 tab daily for 2 days PREDNISONE 06065958851 No Longer Active Waynellisael Heaton APRN Active PROMETHAZINE HCL 25 MG TABS 1 four times a day as needed for vomiting PROMETHAZINE HCL 34682489316 No Longer Active Myrna Roberto MD Active BACTRIM DS 800-160 MG TABS 1 twice a day SULFAMETHOXAZOLE-TRIMETHOPRIM 54733606714 No Longer Active Myrna Roberto MD Active VICKS DAYQUIL SEVERE COLD/FLU TABS 1 tab every 6 hours prn 12/10 [id number] TABS 60311946896 No Longer Active Myrna leigh MD Active GUAIFENESIN-CODEINE 100-10 MG/5ML ORAL SYRP 2 tsp every 6 hours prn GUAIFENESIN-CODEINE 55298818431 No Longer Active Myrna Roberto MD Active NAPROXEN 500 MG TAB one tab PO BID NAPROXEN 332 45886770 No Longer Active Myrna Roberto MD Active AUGMENTIN 875-125 MG TAB 1 tab by mouth twice daily with food 20 08/12/16 AMOXICILLIN-POT CLAVULANATE 63197866044 No Longer Active Liliana Estrada MD PhD Active AMOXICILLIN 500 MG CAP 1 tab by mouth 3 times daily 08/12/16 AMOXICILLIN 76152160758 No Longer Active Liliana Estrada MD PhD Acti ve TESSALON PERLES 100 MG CAP 1 tablet by mouth 3 times daily 11/01 BENZONATATE 17186468859 No Longer Active Liliana Estrada MD PhD Active FLAGYL 500 MG TAB 1 tablet by mouth two times daily 07/11/29 METRONIDAZOLE 06571914454 No Longer Active Nilam Raida Active ZITHROMAX 250 MG TAB 2 po today, then 1 po q days 2-5 AZITHROMYCIN 88873236366 No Longer Active Arie Casper MD Acti ve VITAMINS 0.8 MG TABS take 1 tab po qday 08/08 [id number] 22607132288 No Longer Active Arie Casper MD Active IBUPROFEN 800 MG TABS take one po Q 8 hours IBU PROFEN 65372567444 No Longer Active Arie Casper MD Active [facility] TUSSIN COUGH/COLD CF 5-10-100 MG/5ML LIQD 2 teaspoons ev eliud 4 hours [id number] 24034330392 No Longer Active Blaine Casper MD Active COMTREX COLD/COUGH DAY/NITE MS 5-2-10-325 MG MISC 2 caps deja ry 4 hours [id number]-APAP 74926137793 No Longer Active Da aleksandra Casper MD Active CHLORASEPTIC MAX SORE THROAT 15-10 MG LOZG 1 every 2 hours prn 2 BENZOCAINE-MENTHOL 39137927255 No Longer Active Arie Marcelo Active PREDNISONE 20 MG TAB 2 tabs daily for 3 days, 1 t ab daily for 3 days, 1/2 tab daily for 2 days PREDNISONE 13384009878 No Longer Active Jose Zhong MD Active AZITHROMYCIN 250 MG TABS 2 po qd x 1 day, then 1 po qd x 4 days AZITHROMYCIN 63473516854 No Longer Active Jose Zhong MD Active ZOFRAN ODT 4 MG TBDP 1 po q6hr PRN Nausea ONDAN SETRON 90462005219 No Longer Active Rich Rosales MD Active ZOFRAN 4 MG TABS 1 tablet every 4 hours ONDANSE JERRELL HCL 46587337259 No Longer Active Rich Rosales MD Active MUCINEX 600 MG IP90P-KMB Take 1-2 tablets every 12 hours GUAIFENESIN 38483959301 No Longer Active Rich Rosales MD Activ e BACTRIM 400-80 MG TABS take one po BID SULFAMETHOXAZOLE-TRIMETHOPRIM 57414779358 No Longer Active Abelardo HERNANDEZ Active AZITHROMYCIN 500 MG TABS 1 PO q day x 6 days AZ ITHROMYCIN 05808297195 No Longer Active Tin HERNANDEZ Active ZITHROMAX 250 MG TAB 2 po today, then 1 po q days 2-5 AZITHROMYCIN 68017783071 No Longer Active Arie Casper MD Acti ve ZITHROMAX 250 MG TAB 2 po today, then 1 po q days 2-5 AZITHROMYCIN 73157792674 No Longer Active Arie Casper MD Acti ve AMOXICILLIN 500 MG CAP 1 tab by mouth 3 times daily 09/23/20 AMOXICILLIN 45544277424 No Longer Active Arie Casper MD Acti ve BACTRIM DS 800-160 MG TAB 1 tab by mouth twice daily 2 TRIMETHOPRIM-SULFAMETHOXAZOLE 77702230962 No Longer Active Arie Casper MD Active AMOXICILLIN 500 MG TABS take 1 tab po TID AMOXI CILLIN 52282458598 No Longer Active Arie Casper MD Active BACTRIM DS 800-160 MG TAB 1 tab by mouth twice daily 2 BACTRIM DS 800-160 MG TAB 087672 TRIMETHOPRIM-SULFAMETHOXAZOLE Inac tive MUCINEX 600 MG [id number] Take 1-2 tablets every 12 hours MUCINEX 600 MG [id number] GUAIFENESIN Inactive ZOFRAN 4 MG TABS 1 tablet every 4 hours ZOFRAN 4 MG TABS 726703 ONDANSETRON HCL Inactive ZOFRAN ODT 4 MG TBDP 1 po q6hr PRN Nausea ZOFRAN ODT 4 MG TBDP 820436 ONDANSETRON Inactive CHLORASEPTIC MAX SORE THROAT 15-10 MG LOZG 1 every 2 hours prn 2 /04/30 CHLORASEPTIC MAX SORE THROAT 15-10 MG LOZG BENZO ARINA-MENTHOL Inactive COMTREX COLD/COUGH DAY/NITE MS 5-2-10-325 MG MISC 2 caps deja ry 4 hours COMTREX COLD/COUGH DAY/NITE MS 5-2-10-325 MG MIS C [id number] Inactive [facility] TUSSIN COUGH/COLD CF 5-10-100 MG/5ML LIQD 2 teaspoons ev eliud 4 hours [facility] TUSSIN COUGH/COLD CF 5-10-100 MG/5ML LIQD [id number] Inactive IBUPROFEN 800 MG TABS take one po Q 8 hours IBUPROFEN 800 MG TABS IBUPROFEN Inactive VITAMINS 0.8 MG TABS take 1 tab po qday 08/08 VITAMINS 0.8 MG TABS [id number] Inactive TESSALON PERLES 100 MG CAP 1 tablet by mouth 3 times daily 11/01 TESSALON PERLES 100 MG CAP 314855 BENZONATATE Inact zaid AMOXICILLIN 500 MG CAP 1 tab by mouth 3 times daily 08/12/16 AMOXICILLIN 500 MG CAP 283949 AMOXICILLIN Inactive GUAIFENESIN-CODEINE 100-10 MG/5ML ORAL SYRP 2 tsp every 6 hours prn GUAIFENESIN-CODEINE 100-10 MG/5ML ORAL SYRP 514717 GUAIFENESIN-CODEINE Inactive VICKS DAYQUIL SEVERE COLD/FLU TABS 1 tab every 6 hours prn 12/10 VICKS DAYQUIL SEVERE COLD/FLU TABS PHENYLEPHRINE -DM-GG-APAP TABS Inactive BACTRIM DS 800-160 MG TABS 1 twice a day BACTRIM DS 800- 160 MG TABS 290353 SULFAMETHOXAZOLE-TRIMETHOPRIM Inactive PROMETHAZINE HCL 25 MG TABS 1 four times a day as needed for vomiting PROMETHAZINE HCL 25 MG TABS 932063 PROMETHAZINE HCL Inactive ZYRTEC ALLERGY 10 MG CAPS 1 po qd ZY RTEC ALLERGY 10 MG CAPS CETIRIZINE HCL Inactive MACROBID 100 MG CAP 1 cap by mouth twice daily MACROBID 100 MG CAP 2361433 NITROFURANTOIN MONOHYD MACRO Inactive LOMOTIL 2.5-0.025 MG TABS 1 to 2 four times a day as needed for diarrhea LOMOTIL 2.5-0.025 MG TABS 8786567 DIPHENOXYLATE-A TROPINE Inactive CYCLOBENZAPRINE HCL 10 MG TABS 1/2 - 1 tablet by mouth three times daily as needed for muscle spasm/pain CYCLOBENZAP RINE HCL 10 MG TABS 718680 CYCLOBENZAPRINE HCL Inactive AMOXICILLIN 500 MG TABS 2 tabs twice a day for 10 days AMOXICILLIN 500 MG TABS 868496 AMOXICILLIN Inactive LOMOTIL 2.5-0.025 MG TAB 1 to 2 four times a day as needed f or diarrhea LOMOTIL 2.5-0.025 MG TAB 1696586 DIPHENOXYLATE-AT ROPINE Inactive ZOFRAN 4 MG ORAL TABS 1 TAB PO Q 6 HRS PRN NAUSEA 2014 ZOFRAN 4 MG ORAL TABS 570463 ONDANSETRON HCL Inactive CITRATE OF MAGNESIA ORAL SOLN 1 bottle today for constipation 20 07/10/15 CITRATE OF MAGNESIA ORAL SOLN 4386399 MAGNESIUM CITRATE Inactive PROMETHAZINE HCL 12.5 MG TABS 1 tablet by mouth every 6 hours as needed for nausea/vomiting PROMETHAZINE HCL 12.5 MG TABS 241388 PROMETHAZINE HCL Inactive PREDNISONE 20 MG TAB 1 tablet twice daily for 2 d ays, then 1 tablet once daily for 2 days PREDNISONE 20 MG TAB 388690 PREDNISONE Inac tive ALPRAZOLAM 0.25 MG TAB 1 tablet by mouth every 8 hours as ne eded for stress ALPRAZOLAM 0.25 MG TAB 381166 ALPRAZOLAM Inact zaid FLONASE 50 MCG/ACT SUSP 1 spray each nostril twice d aily for allergies and runny nose until gone FLONASE 50 MCG/ACT SUSP F LUTICASONE PROPIONATE Inactive PREDNISONE 20 MG TAB 1 tablet daily for airway inflammation 2015 PREDNISONE 20 MG TAB 225783 PREDNISONE Inactive NAPROXEN 500 MG TAB Take 1 tab BID NAPROXEN 500 MG TAB 273330 NAPROXEN Inactive ZOLOFT 50 MG TAB 1 tablet by mouth daily ZOLOFT 50 MG TAB 558972 SERTRALINE HCL Inactive LOMOTIL 2.5-0.025 MG TAB 1 tab po four times a day as needed for diarrhea LOMOTIL 2.5-0.025 MG TAB 3872343 DIPHENOXYLATE-AT ROPINE Inactive AMOXICILLIN 500 MG TABS take 1 tab po TID AMOXICILLIN 500 MG TABS 181340 AMOXICILLIN Inactive AMOXICILLIN 500 MG CAP 1 tab by mouth 3 times daily 09/23/20 AMOXICILLIN 500 MG CAP 752512 AMOXICILLIN Inactive ZITHROMAX 250 MG TAB 2 po today, then 1 po q days 2-5 ZITHROMAX 250 MG TAB 6912226 AZITHROMYCIN Inactive ZITHROMAX 250 MG TAB 2 po today, then 1 po q days 2-5 ZITHROMAX 250 MG TAB 3732531 AZITHROMYCIN Inactive AZITHROMYCIN 500 MG TABS 1 PO q day x 6 days 3 AZITHROMYCIN 500 MG TABS 2786796 AZITHROMYCIN Inactive BACTRIM 400-80 MG TABS take one po BID BA CTRIM 400-80 MG TABS 740069 SULFAMETHOXAZOLE-TRIMETHOPRIM Inactive AZITHROMYCIN 250 MG TABS 2 po qd x 1 day, then 1 po qd x 4 days AZITHROMYCIN 250 MG TABS 0652556 AZITHROMYCIN Inactiv e PREDNISONE 20 MG TAB 2 tabs daily for 3 days, 1 t ab daily for 3 days, 1/2 tab daily for 2 days PREDNISONE 20 MG TAB 094458 PREDNISON E Inactive ZITHROMAX 250 MG TAB 2 po today, then 1 po q days 2-5 ZITHROMAX 250 MG TAB 9548022 AZITHROMYCIN Inactive FLAGYL 500 MG TAB 1 tablet by mouth two times daily 07/11/29 FLAGYL 500 MG TAB 724799 METRONIDAZOLE Inactive AUGMENTIN 875-125 MG TAB 1 tab by mouth twice daily with food 20 08/12/16 AUGMENTIN 875-125 MG TAB 796966 AMOXICILLIN-POT CLAVULA ANGELO Inactive NAPROXEN 500 MG TAB one tab PO BID NAPROXEN 500 MG TAB 418946 NAPROXEN Inactive PREDNISONE 20 MG TAB 2 tabs daily for 3 days, 1 t ab daily for 3 days, 1/2 tab daily for 2 days PREDNISONE 20 MG TAB 736546 PREDNISON E Inactive AZITHROMYCIN 250 MG TABS 2 po qd x 1 day, then 1 po qd x 4 days AZITHROMYCIN 250 MG TABS 9787902 AZITHROMYCIN Inactiv e PREDNISONE 20 MG TAB 2 tabs daily for 3 days, 1 t ab daily for 3 days, 1/2 tab daily for 2 days PREDNISONE 20 MG TAB 799407 PREDNISON E Inactive ZITHROMAX Z-EMIL 250 MG TABS 2 today, then 1 daily for 4 days 201 03/31/18 ZITHROMAX Z-EMIL 250 MG TABS 0563242 AZITHROMYCIN Inac tive CEFDINIR 300 MG CAPS 1 po BID x 10 days C EFDINIR 300 MG CAPS 638642 CEFDINIR Inactive CEFDINIR 300 MG CAPS 1 po BID x 10 days C EFDINIR 300 MG CAPS 297299 CEFDINIR Inactive Advance Directives Directive Description Start [...] pressure, diastolic - 8462-4 70 mm[Hg] BP eknnedy blood pressure, systolic - 8480-6 132 mm[Hg] [...] Panel - Chemistry sodium, serum 136 mmol/L 934-903 7266/04/26 carbon dioxide, venous blood 29.9 mmol/L 21.0-32 [...] pH, urine, semiquantitative 7.0 5.0-8.5 Lab Report: CG, UADIP W/MICRO, AUTO [...] Negative Encounters Code Encounter Date Provider Facility CPT-03143 Level 4 Est. Patient 15:29:22 STATISTICAL CONSULTANT Arie mcqueen MD [facility] [place]-45414 Level 3 Est. Patient 15:18:16 STATISTICAL CONSULTANT Jono black [facility]-34673 Level 4 Est. Patient 12:08:40 STATISTICAL CONSULTANT Steve [facility]-48473 Level 3 Est. Patient 09:24:42 CDT [facility]-11024 Level 3 Est. Patient 09:12:56 CDT Arie mcqueen MD [facility] [place]-64857 Level 3 Est. Patient 16:40:54 CDT Jose Zhong MD [facility] [place]-47174 Level 2 Est. Patient 13:01:13 CDT Steve [facility]-33930 Level 3 Est. Patient 11:55:30 STATISTICAL CONSULTANT Jono black [facility]-81417 Level 3 Est. Patient 09:52:36 STATISTICAL CONSULTANT Steve [employer] [facility] CPT-53200 Level 3 Est. Patient 16:25:33 STATISTICAL CONSULTANT Rich Rosales MD [facility]-30247 Level 3 Est. Patient 20:33:55 CDT Arie mcqueen MD [facility]-92674 Level 3 Est. Patient 14:18:20 CDT Rich Rosales MD [facility] CPT-41741 Level 4 Est. Patient 09:34:31 CDT Arie mcqueen MD [facility] CPT-43131 Level 3 Est. Patient 09:08:55 STATISTICAL CONSULTANT Liliana vincent MD PhD [facility] CPT-83748 Level 3 Est. Patient 16:44:07 STATISTICAL CONSULTANT Arie mcqueen MD [facility] CPT-55521 Level 3 Est. Patient 10:44:27 CDT Arie mcqueen MD [facility] CPT-41211 Level 3 Est. Patient 08:55:41 CDT Jose Zhong MD [facility] CPT-78453 Level 3 Est. Patient 18:37:31 CDT Liliana vincent MD PhD [facility] CPT-87528 Level 3 Est. Patient 14:28:23 CDT Abelardo HERNANDEZ [facility] CPT-44877 Level 3 Est. Patient 15:18:13 STATISTICAL CONSULTANT Arie mcqueen MD [facility] CPT-66101 Level 3 Est. Patient 10:11:29 STATISTICAL CONSULTANT Arie mcqueen MD [facility] CPT-94325 Level 3 Est. Patient 10:55:57 STATISTICAL CONSULTANT Jono black DO [facility] CPT-44337 Level 3 Est. Patient 17:29:05 CDT Arie mcqueen MD [facility] Procedures Code Procedure Name Date Entry Date Standard Desc ription CPT-31210 Sono transvag pelvis non OB uterus ovari es cervix - XRAY USE ONLY 08:58:14 STATISTICAL CONSULTANT CPT-54383 UA w micro - LAB USE ONLY 16:04:56 STATISTICAL CONSULTANT 2015 CPT-03493 Wet Prep/GEN - LAB USE ONLY 16:04:56 STATISTICAL CONSULTANT 20 08/10/29 CPT-95291 First Vx - Ix admin via ID I M or jet injects without counseling by physician 16:57:10 CDT CPT-63401 Fluzone Preservative Free Intramuscular Suspension 16:57:10 CDT CPT-J0696 Rocephin 1000 mg (Ceftriaxone) 11:49:23 CDT CPT-J1040 Depo Medrol 80 mg (Methyl Prednisolone A cetate) 11:49:23 CDT CPT-J1100 Decadron 8mg (Dexamethasone) 11:49:23 CDT 2 CPT-87455 Abx/Therapy Injection 11:49:23 CDT CPT-36876 Abx/Therapy Injection 11:49:23 CDT CPT-00658 Abd compl w upright 09:07:26 STATISTICAL CONSULTANT CPT-01573 Ear Wash 16:12:47 STATISTICAL CONSULTANT CPT-OV Office Visit 11:12:01 CDT CPT-OV Office Visit 15:30:23 CDT CPT-05203 Sono pelvis non OB uterus ovaries cervix 15:50:44 CDT CPT-14502 Hand comp min 3V 16:42:32 CDT CPT-37064 Abd compl w upright 12:17:01 CDT CPT-61803 Nexplanon Placement 15:07:39 STATISTICAL CONSULTANT CPT-45863 Removal of IUD 15:07:39 STATISTICAL CONSULTANT CPT-47297 TB Tubersol 12:09:32 CDT CPT-96101 TB Tubersol 13:55:43 CDT
--- OUTSIDE RECORDS SUMMARY | 2020-03-03 08:01 | XMS REPORT | Clinical Summary ---
Author Author Admin, Diamante Marcelo Organization [employer] Address Unknown Phone Unavailable Allergies, Adverse Reactions, [...] cute pharyngitis Nausea 787.02 Active Brii Larson WOUND CARE TECHNICIAN Nausea alone URI 465.9 Active Jono Gagnon DO Acu te upper respiratory infections of unspecified site Allergic rhinitis 477.9 Active Brii Christianson PRN Allergic rhinitis, cause unspecified Abdominal pain, right lower quadrant 789.03 Active Jose Zhong MD Abdominal pain, right lower quadrant Urinary frequency 788.41 Inactive Roseann Crawford Urinary frequency Urinary frequency 788.41 Active 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, 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OPERATIONS FOR THERAPY Urinary frequency Sinusitis - acute 461.9 Active Biri Christianson PRN Acute sinusitis, unspecified Anxiety with depression 300.4 Active Glenn Larson WOUND CARE TECHNICIAN Dysthymic disorder URI 465.9 Active Jono Gagnon DO Acu te upper respiratory infections of unspecified site Vaginal bleeding 623.8 Active Brii MARROQUIN RN Other specified noninflammatory disorders of vagina High risk sexual behavior V69.2 Active Arie Casper MD High-risk sexual behavior GERD 530.81 Active Arie Casper MD Esophageal reflux Encounter for surveillance of implantable subdermal contraceptiv e Active Brii Larson APRN COLON CANCER ICD-V16.0 Inactive Jose Zhong MD [...] Patient Instruction TUSSIONEX PENNKINETIC ER 10-8 MG/5ML LQCR 5ml po q12hr PRN Cough HYDROCOD POLST-CHLORPHEN POLST 97111456293 No Longer Active Brii Larson APRN Active CETIRIZINE HCL 10 MG ORAL TABS 1 po qd PRN Allergies 2 CETIRIZINE HCL 44997556513 No Longer Active Brii Larson APRN Ac tive PREDNISONE 20 MG TAB 2 tabs daily for 3 days, 1 t ab daily for 3 days, 1/2 tab daily for 2 days PREDNISONE 94640616310 No Longer Active Arie Casper MD Active NEXPLANON IMPL right arm subcutaneously ETONOGE STREL IMPL 84880863701 Active Arie Casper MD Active LOMOTIL 2.5-0.025 MG TAB 1 tab po four times a day as needed for diarrhea DIPHENOXYLATE-ATROPINE 92254351210 No Longer Active Mason Casper MD Active ZOLOFT 50 MG TAB 1 tablet by mouth daily SERTRA LINE HCL 51034938898 No Longer Active Arie Casper MD Active NAPROXEN 500 MG TAB Take 1 tab BID NAPROXEN 332 83505035 No Longer Active Arie Casper MD Active CEFDINIR 300 MG CAPS 1 po BID x 10 days CEFDINI R 27103862250 No Longer Active Brii Larson APRN Active PREDNISONE 20 MG TAB 1 tablet daily for airway inflammation 2015 PREDNISONE 62418765950 No Longer Active Brii Larson APRN Active CEFDINIR 300 MG CAPS 1 po BID x 10 days CEFDINI R 73646537765 No Longer Active Jono Gagnon DO Active FLONASE 50 MCG/ACT SUSP 1 spray each nostril twice d aily for allergies and runny nose until gone FLUTICASONE PROPIONATE No Longe r Active Jono Gagnon DO Active ALPRAZOLAM 0.25 MG TAB 1 tablet by mouth every 8 hours as ne eded for stress ALPRAZOLAM 91272313907 No Longer Active Jono Gagnon DO Active ZITHROMAX Z-EMIL 250 MG TABS 2 today, then 1 daily for 4 days 201 03/31/18 AZITHROMYCIN 30561197790 No Longer Active Arie Casper MD Active PROTONIX 40 MG ORAL TBEC 1 po q a.m. PANTOPRAZO LE SODIUM 06595063877 Active Arie Casper MD Active PREDNISONE 20 MG TAB 2 tabs daily for 3 days, 1 t ab daily for 3 days, 1/2 tab daily for 2 days PREDNISONE 94643144381 No Longer Active Brii Larson APRN Active PREDNISONE 20 MG TAB 1 tablet twice daily for 2 d ays, then 1 tablet once daily for 2 days PREDNISONE 39585144143 No Longer Active Brii Larson APRN Active PROMETHAZINE HCL 12.5 MG TABS 1 tablet by mouth every 6 hours as needed for nausea/vomiting PROMETHAZINE HCL 60382310537 No Longe r Active Jono Gagnon DO Active CITRATE OF MAGNESIA ORAL SOLN 1 bottle today for constipation 20 07/10/15 MAGNESIUM CITRATE 11936369849 No Longer Active Jono Gagnon DO Active ZOFRAN 4 MG ORAL TABS 1 TAB PO Q 6 HRS PRN NAUSEA 2014 ONDANSETRON HCL 69404224112 No Longer Active Brii Larson APRN A ctive LOMOTIL 2.5-0.025 MG TAB 1 to 2 four times a day as needed f or diarrhea DIPHENOXYLATE-ATROPINE 21388871851 No Longer Active January Larson APRN Active AMOXICILLIN 500 MG TABS 2 tabs twice a day for 10 days AMOXICILLIN 17068862456 No Longer Active Brii Larson APRN Acti ve CYCLOBENZAPRINE HCL 10 MG TABS 1/2 - 1 tablet by mouth three times daily as needed for muscle spasm/pain CYCLOBENZAPRINE HCL 58918418911 No Longer Active Arie Casper MD Active LOMOTIL 2.5-0.025 MG TABS 1 to 2 four times a day as needed for diarrhea DIPHENOXYLATE-ATROPINE 94000457776 No Longer Active Mason Casper MD Active MACROBID 100 MG CAP 1 cap by mouth twice daily NITROFURANTOIN MONOHYD MACRO 41963349343 No Longer Active Arie Casper MD Active ZYRTEC ALLERGY 10 MG CAPS 1 po qd CETIRIZINE HCL 21348012950 No Longer Active Arie Casper MD Active AZITHROMYCIN 250 MG TABS 2 po qd x 1 day, then 1 po qd x 4 days AZITHROMYCIN 33007503820 No Longer Active Jillina Frazell WOUND CARE TECHNICIAN Active PREDNISONE 20 MG TAB 2 tabs daily for 3 days, 1 t ab daily for 3 days, 1/2 tab daily for 2 days PREDNISONE 21447948651 No Longer Active Jillina Frazell WOUND CARE TECHNICIAN Active PROMETHAZINE HCL 25 MG TABS 1 four times a day as needed for vomiting PROMETHAZINE HCL 62638591651 No Longer Active Myrna Roberto MD Active BACTRIM DS 800-160 MG TABS 1 twice a day SULFAMETHOXAZOLE-TRIMETHOPRIM 32416608092 No Longer Active Myrna Roberto MD Active VICKS DAYQUIL SEVERE COLD/FLU TABS 1 tab every 6 hours prn 12/10 [id number] TABS 28347573363 No Longer Active Myrna leigh MD Active GUAIFENESIN-CODEINE 100-10 MG/5ML ORAL SYRP 2 tsp every 6 hours prn GUAIFENESIN-CODEINE 13715674516 No Longer Active Myrna Roberto MD Active NAPROXEN 500 MG TAB one tab PO BID NAPROXEN 332 57992616 No Longer Active Myrna Roberto MD Active AUGMENTIN 875-125 MG TAB 1 tab by mouth twice daily with food 08/12/16 AMOXICILLIN-POT CLAVULANATE 29398862435 No Longer Active Liliana Estrada MD PhD Active AMOXICILLIN 500 MG CAP 1 tab by mouth 3 times daily 08/12/16 AMOXICILLIN 98148684690 No Longer Active Liliana Estrada MD PhD Acti ve TESSALON PERLES 100 MG CAP 1 tablet by mouth 3 times daily 11/01 BENZONATATE 02880448169 No Longer Active Liliana Estrada MD PhD Active FLAGYL 500 MG TAB 1 tablet by mouth two times daily 20 07/11/29 METRONIDAZOLE 69524083057 No Longer Active Nilam Weber Active ZITHROMAX 250 MG TAB 2 po today, then 1 po q days 2-5 AZITHROMYCIN 91196396753 No Longer Active Arie Casper MD Acti ve VITAMINS 0.8 MG TABS take 1 tab po qday 08/08 [id number] 74267837160 No Longer Active Arie Casper MD Active IBUPROFEN 800 MG TABS take one po Q 8 hours IBU PROFEN 54027851485 No Longer Active Arie Casper MD Active [facility] TUSSIN COUGH/COLD CF 5-10-100 MG/5ML LIQD 2 teaspoons ev eliud 4 hours [id number] 04735907358 No Longer Active Blaine Casper MD Active COMTREX COLD/COUGH DAY/NITE MS 5-2-10-325 MG MISC 2 caps deja ry 4 hours [id number] 84229696911 No Longer Active Da vimason Casper MD Active CHLORASEPTIC MAX SORE THROAT 15-10 MG LOZG 1 every 2 hours prn 2 BENZOCAINE-MENTHOL 19329952103 No Longer Active Arie Marcelo Active PREDNISONE 20 MG TAB 2 tabs daily for 3 days, 1 t ab daily for 3 days, 1/2 tab daily for 2 days PREDNISONE 36282670892 No Longer Active Jose Zhong MD Active AZITHROMYCIN 250 MG TABS 2 po qd x 1 day, then 1 po qd x 4 days AZITHROMYCIN 48994175781 No Longer Active Jose Zhong MD Active ZOFRAN ODT 4 MG TBDP 1 po q6hr PRN Nausea ONDAN SETRON 51902747126 No Longer Active Rich Rosales MD Active ZOFRAN 4 MG TABS 1 tablet every 4 hours ONDANSE JERRELL HCL 55977987358 No Longer Active Rich Rosales MD Active MUCINEX 600 MG [id number] Take 1-2 tablets every 12 hours GUAIFENESIN 58038080144 No Longer Active Rich Rosales MD Activ e BACTRIM 400-80 MG TABS take one po BID SULFAMETHOXAZOLE-TRIMETHOPRIM 26442172814 No Longer Active Abelardo HERNANDEZ Active AZITHROMYCIN 500 MG TABS 1 PO q day x 6 days AZ ITHROMYCIN 78597180276 No Longer Active Tin HERNANDEZ Active ZITHROMAX 250 MG TAB 2 po today, then 1 po q days 2-5 AZITHROMYCIN 68941178261 No Longer Active Arie Casper MD Acti ve ZITHROMAX 250 MG TAB 2 po today, then 1 po q days 2-5 AZITHROMYCIN 90190172449 No Longer Active Arie Casper MD Acti ve AMOXICILLIN 500 MG CAP 1 tab by mouth 3 times daily 20 09/23/20 AMOXICILLIN 01395437697 No Longer Active Arie Casper MD Acti ve BACTRIM DS 800-160 MG TAB 1 tab by mouth twice daily 2 TRIMETHOPRIM-SULFAMETHOXAZOLE 49257885483 No Longer Active Arie Casper MD Active AMOXICILLIN 500 MG TABS take 1 tab po TID AMOXI CILLIN 18285914397 No Longer Active Arie Casper MD Active BACTRIM DS 800-160 MG TAB 1 tab by mouth twice daily 2 BACTRIM DS 800-160 MG TAB 761138 TRIMETHOPRIM-SULFAMETHOXAZOLE Inac tive MUCINEX 600 MG [id number] Take 1-2 tablets every 12 hours MUCINEX 600 MG [id number] GUAIFENESIN Inactive ZOFRAN 4 MG TABS 1 tablet every 4 hours ZOFRAN 4 MG TABS 328846 ONDANSETRON HCL Inactive ZOFRAN ODT 4 MG TBDP 1 po q6hr PRN Nausea ZOFRAN ODT 4 MG TBDP 528977 ONDANSETRON Inactive CHLORASEPTIC MAX SORE THROAT 15-10 MG LOZG 1 every 2 hours prn 2 CHLORASEPTIC MAX SORE THROAT 15-10 MG LOZG BENZO ARINA-MENTHOL Inactive COMTREX COLD/COUGH DAY/NITE MS 5-2-10-325 MG MISC 2 caps deja ry 4 hours COMTREX COLD/COUGH DAY/NITE MS 5-2-10-325 MG MIS C [id number] Inactive [facility] TUSSIN COUGH/COLD CF 5-10-100 MG/5ML LIQD 2 teaspoons ev eliud 4 hours [facility] TUSSIN COUGH/COLD CF 5-10-100 MG/5ML LIQD [id number] Inactive IBUPROFEN 800 MG TABS take one po Q 8 hours IBUPROFEN 800 MG TABS IBUPROFEN Inactive VITAMINS 0.8 MG TABS take 1 tab po qday 08/08 VITAMINS 0.8 MG TABS [id number] Inactive TESSALON PERLES 100 MG CAP 1 tablet by mouth 3 times daily 11/01 TESSALON PERLES 100 MG CAP 892831 BENZONATATE Inact zaid AMOXICILLIN 500 MG CAP 1 tab by mouth 3 times daily 08/12/16 AMOXICILLIN 500 MG CAP 130190 AMOXICILLIN Inactive GUAIFENESIN-CODEINE 100-10 MG/5ML ORAL SYRP 2 tsp every 6 hours prn GUAIFENESIN-CODEINE 100-10 MG/5ML ORAL SYRP 527661 GUAIFENESIN-CODEINE Inactive VICKS DAYQUIL SEVERE COLD/FLU TABS 1 tab every 6 hours prn 12/10 BEVERLY DAYQUIL SEVERE COLD/FLU TABS PHENYLEPHRINE -DM-GG-APAP TABS Inactive BACTRIM DS 800-160 MG TABS 1 twice a day BACTRIM DS 800- 160 MG TABS 723048 SULFAMETHOXAZOLE-TRIMETHOPRIM Inactive PROMETHAZINE HCL 25 MG TABS 1 four times a day as needed for vomiting PROMETHAZINE HCL 25 MG TABS 524466 PROMETHAZINE HCL Inactive ZYRTEC ALLERGY 10 MG CAPS 1 po qd ZY RTEC ALLERGY 10 MG CAPS CETIRIZINE HCL Inactive MACROBID 100 MG CAP 1 cap by mouth twice daily MACROBID 100 MG CAP 1422667 NITROFURANTOIN MONOHYD MACRO Inactive LOMOTIL 2.5-0.025 MG TABS 1 to 2 four times a day as needed for diarrhea LOMOTIL 2.5-0.025 MG TABS 5007813 DIPHENOXYLATE-A TROPINE Inactive CYCLOBENZAPRINE HCL 10 MG TABS 1/2 - 1 tablet by mouth three times daily as needed for muscle spasm/pain CYCLOBENZAP RINE HCL 10 MG TABS 263999 CYCLOBENZAPRINE HCL Inactive AMOXICILLIN 500 MG TABS 2 tabs twice a day for 10 days AMOXICILLIN 500 MG TABS 411414 AMOXICILLIN Inactive LOMOTIL 2.5-0.025 MG TAB 1 to 2 four times a day as needed f or diarrhea LOMOTIL 2.5-0.025 MG TAB 0410277 DIPHENOXYLATE-AT ROPINE Inactive ZOFRAN 4 MG ORAL TABS 1 TAB PO Q 6 HRS PRN NAUSEA 2014 ZOFRAN 4 MG ORAL TABS 876331 ONDANSETRON HCL Inactive CITRATE OF MAGNESIA ORAL SOLN 1 bottle today for constipation 20 07/10/15 CITRATE OF MAGNESIA ORAL SOLN 9480697 MAGNESIUM CITRATE Inactive PROMETHAZINE HCL 12.5 MG TABS 1 tablet by mouth every 6 hours as needed for nausea/vomiting PROMETHAZINE HCL 12.5 MG TABS 280047 PROMETHAZINE HCL Inactive PREDNISONE 20 MG TAB 1 tablet twice daily for 2 d ays, then 1 tablet once daily for 2 days PREDNISONE 20 MG TAB 775180 PREDNISONE Inac tive ALPRAZOLAM 0.25 MG TAB 1 tablet by mouth every 8 hours as ne eded for stress ALPRAZOLAM 0.25 MG TAB 309779 ALPRAZOLAM Inact zaid FLONASE 50 MCG/ACT SUSP 1 spray each nostril twice d aily for allergies and runny nose until gone FLONASE 50 MCG/ACT SUSP 9910279 FLUTICASONE PROPIONATE Inactive PREDNISONE 20 MG TAB 1 tablet daily for airway inflammation 2015 PREDNISONE 20 MG TAB 548131 PREDNISONE Inactive NAPROXEN 500 MG TAB Take 1 tab BID NAPROXEN 500 MG TAB 970582 NAPROXEN Inactive ZOLOFT 50 MG TAB 1 tablet by mouth daily ZOLOFT 50 MG TAB 264594 SERTRALINE HCL Inactive LOMOTIL 2.5-0.025 MG TAB 1 tab po four times a day as needed for diarrhea LOMOTIL 2.5-0.025 MG TAB 8124857 DIPHENOXYLATE-AT ROPINE Inactive CETIRIZINE HCL 10 MG ORAL TABS 1 po qd PRN Allergies 2 CETIRIZINE HCL 10 MG ORAL TABS 4409440 CETIRIZINE HCL Inactive TUSSIONEX PENNKINETIC ER 10-8 MG/5ML LQCR 5ml po q12hr PRN Cough TUSSIONEX PENNKINETIC ER 10-8 MG/5ML LQCR HYDROCOD POLST-CHLORPHEN POLST Inactive AMOXICILLIN 500 MG TABS take 1 tab po TID AMOXICILLIN 500 MG TABS 280090 AMOXICILLIN Inactive AMOXICILLIN 500 MG CAP 1 tab by mouth 3 times daily 09/23/20 AMOXICILLIN 500 MG CAP 947510 AMOXICILLIN Inactive ZITHROMAX 250 MG TAB 2 po today, then 1 po q days 2-5 ZITHROMAX 250 MG TAB 661685 AZITHROMYCIN Inactive ZITHROMAX 250 MG TAB 2 po today, then 1 po q days 2-5 ZITHROMAX 250 MG TAB 548483 AZITHROMYCIN Inactive AZITHROMYCIN 500 MG TABS 1 PO q day x 6 days 3 AZITHROMYCIN 500 MG TABS 6315559 AZITHROMYCIN Inactive BACTRIM 400-80 MG TABS take one po BID BA CTRIM 400-80 MG TABS 907519 SULFAMETHOXAZOLE-TRIMETHOPRIM Inactive AZITHROMYCIN 250 MG TABS 2 po qd x 1 day, then 1 po qd x 4 days AZITHROMYCIN 250 MG TABS 432347 AZITHROMYCIN Inactiv e PREDNISONE 20 MG TAB 2 tabs daily for 3 days, 1 t ab daily for 3 days, 1/2 tab daily for 2 days PREDNISONE 20 MG TAB 826313 PREDNISON E Inactive ZITHROMAX 250 MG TAB 2 po today, then 1 po q days 2-5 ZITHROMAX 250 MG TAB 960532 AZITHROMYCIN Inactive FLAGYL 500 MG TAB 1 tablet by mouth two times daily 07/11/29 FLAGYL 500 MG TAB 031759 METRONIDAZOLE Inactive AUGMENTIN 875-125 MG TAB 1 tab by mouth twice daily with food 20 08/12/16 AUGMENTIN 875-125 MG TAB 740212 AMOXICILLIN-POT CLAVULA ANGELO Inactive NAPROXEN 500 MG TAB one tab PO BID NAPROXEN 500 MG TAB 666745 NAPROXEN Inactive PREDNISONE 20 MG TAB 2 tabs daily for 3 days, 1 t ab daily for 3 days, 1/2 tab daily for 2 days PREDNISONE 20 MG TAB 883275 PREDNISON E Inactive AZITHROMYCIN 250 MG TABS 2 po qd x 1 day, then 1 po qd x 4 days AZITHROMYCIN 250 MG TABS 255122 AZITHROMYCIN Inactiv e PREDNISONE 20 MG TAB 2 tabs daily for 3 days, 1 t ab daily for 3 days, 1/2 tab daily for 2 days PREDNISONE 20 MG TAB 047331 PREDNISON E Inactive ZITHROMAX Z-EMIL 250 MG TABS 2 today, then 1 daily for 4 days 201 03/31/18 ZITHROMAX Z-EMIL 250 MG TABS 323719 AZITHROMYCIN Inac tive CEFDINIR 300 MG CAPS 1 po BID x 10 days C EFDINIR 300 MG CAPS 158868 CEFDINIR Inactive CEFDINIR 300 MG CAPS 1 po BID x 10 days C EFDINIR 300 MG CAPS 195424 CEFDINIR Inactive PREDNISONE 20 MG TAB 2 tabs daily for 3 days, 1 t ab daily for 3 days, 1/2 tab daily for 2 days PREDNISONE 20 MG TAB 405227 PREDNISON E Inactive Advance Directives Directive Description [...] Value Unit Range Description blood pressure, diastolic 74 mm[Hg] BP kennedy [...] Value Unit Range Description Lab Report: Chlamydia/GC APTIMA/[id number] - Lab chlamydia DNA probe NOT DETECTED NOT DETECTED Lab Report: Chlamydia/GC APTIMA/[id number] - Microbiology Neisseria gonorrhoeae DNA probe NOT [...] Negative Encounters Code Encounter Date Provider Facility CPT-17062 Level 3 Est. Patient 15:40:28 CDT Steve WOUND CARE TECHNICIAN [facility] CPT-11701 Level 3 Est. Patient 16:40:36 CDT Arie mcqueen MD [facility] CPT-68717 Level 4 Est. Patient 15:29:22 BURR GRINDER Arie mcqueen MD [facility] CPT-80791 Level 3 Est. Patient 15:18:16 [facility]UR[facility] GRINDER Jono black DO [facility] CPT-83185 Level 4 Est. Patient 12:08:40 BUR[facility] GRINDER Steve CABRERA [facility] CPT-98275 Level 3 Est. Patient 09:24:42 CDT Steve CABRERA [facility] CPT-39783 Level 3 Est. Patient 09:12:56 CDT Arie mcqueen MD [facility] CPT-05940 Level 3 Est. Patient 16:40:54 CDT Jose Zhong MD [facility] CPT-29923 Level 2 Est. Patient 13:01:13 CDT Steve CABRERA [facility] CPT-82229 Level 3 Est. Patient 11:55:30 BURR GRINDER Jono black DO [facility] CPT-65512 Level 3 Est. Patient 09:52:36 BURR GRINDER Steve CABRERA [facility] CPT-14323 Level 3 Est. Patient 16:25:33 BURR GRINDER Rich Rosales MD [facility] CPT-31484 Level 3 Est. Patient 20:33:55 CDT Arie mcqueen MD [facility] CPT-32650 Level 3 Est. Patient 14:18:20 CDT Rich Rosales MD [facility] CPT-45967 Level 4 Est. Patient 09:34:31 CDT Arie mcqueen MD [facility]-79297 Level 3 Est. Patient 09:08:55 BURR GRINDER Liliana vincent MD PhD [facility] CPT-76389 Level 3 Est. Patient 16:44:07 BURR GRINDER Arie mcqueen MD [facility] CPT-02101 Level 3 Est. Patient 10:44:27 CDT Arie mcqueen MD [facility] CPT-29148 Level 3 Est. Patient 08:55:41 CDT Jose Zhong MD [facility] CPT-48661 Level 3 Est. Patient 18:37:31 CDT Liliana vincent MD PhD [facility] CPT-50124 Level 3 Est. Patient 14:28:23 CDT Abelardo HERNANDEZ [facility] CPT-44239 Level 3 Est. Patient 15:18:13 BURR GRINDER Arie mcqueen MD [facility] CPT-88106 Level 3 Est. Patient 10:11:29 BURR GRINDER Arie mcqueen MD [facility] CPT-97684 Level 3 Est. Patient 10:55:57 BURR GRINDER Jono black DO [facility] CPT-12322 Level 3 Est. Patient 17:29:05 CDT Arie mcqueen MD [facility] Procedures Code Procedure Name Date Entry Date Standard Desc ription CPT-91336 Nexplanon Removal 15:40:28 CDT CPT-48231 Sono transvag pelvis non OB uterus ovari es cervix - XRAY USE ONLY 08:58:14 BURR GRINDER CPT-88194 UA w micro - LAB USE ONLY 16:04:56 BURR GRINDER 2015 CPT-07934 Wet Prep/GEN - LAB USE ONLY 16:04:56 BURR GRINDER 20 08/10/29 CPT-38042 First Vx - Ix admin via ID I M or jet injects without counseling by physician 16:57:10 CDT CPT-61002 Fluzone Preservative Free Intramuscular Suspension 16:57:10 CDT CPT-J0696 Rocephin 1000 mg (Ceftriaxone) 11:49:23 CDT CPT-J1040 Depo Medrol 80 mg (Methyl Prednisolone A cetate) 11:49:23 CDT CPT-J1100 Decadron 8mg (Dexamethasone) 11:49:23 CDT 2 CPT-85571 Abx/Therapy Injection 11:49:23 CDT CPT-21976 Abx/Therapy Injection 11:49:23 CDT CPT-24337 Abd compl w upright 09:07:26 BURR GRINDER CPT-31836 Ear Wash 16:12:47 BURR GRINDER CPT-OV Office Visit 11:12:01 CDT CPT-OV Office Visit 15:30:23 CDT CPT-28573 Sono pelvis non OB uterus ovaries cervix 15:50:44 CDT CPT-74830 Hand comp min 3V 16:42:32 CDT CPT-49716 Abd compl w upright 12:17:01 CDT CPT-70786 Nexplanon Placement 15:07:39 BURR GRINDER CPT-01433 Removal of IUD 15:07:39 BURR GRINDER CPT-36415 TB Tubersol 12:09:32 CDT CPT-84459 TB Tubersol 13:55:43 CDT
--- OUTSIDE RECORDS SUMMARY | 2020-03-03 08:02 | XMS REPORT | Clinical Summary ---
Author Author Admin, Diamante Marcelo Organization [facility] Address Unknown Phone Unavailable Allergies, Adverse [...] TAB one tab PO BID NAPROXEN 332 [id number] Active Myrna Roberto MD Active LOMOTIL 2.5-0.025 MG TABS 1 to 2 four times a day as needed for diarrhea DIPHENOXYLATE-ATROPINE 29939166510 Active Rich mcintosh MD Active PROMETHAZINE HCL 25 MG TABS 1 four times a day as needed for vomiting PROMETHAZINE HCL 81017318700 Active Rich Rosales MD Active BACTRIM DS 800-160 MG TABS 1 twice a day SULFAMETHOXAZOLE-TRIMETHOPRIM 71800811032 Active Rich Rosales MD Active AUGMENTIN 875-125 MG TAB 1 tab by mouth twice daily with food 08/12/16 AMOXICILLIN-POT CLAVULANATE 05963868135 No Longer Active Liliana Estrada MD PhD Active CYCLOBENZAPRINE HCL 10 MG TABS 1/2 - 1 tablet by mouth three times daily as needed for muscle spasm/pain CYCLOBENZAPRINE HCL 95725 525029 Active Liliana Estrada MD PhD Active GUAIFENESIN-CODEINE 100-10 MG/5ML ORAL SYRP 2 tsp every 6 hours prn GUAIFENESIN-CODEINE 38918629569 Active Liliana Estrada MD PhD Active VICKS DAYQUIL SEVERE COLD/FLU TABS 1 tab every 6 hours prn [id number]-APAP TABS 89462065276 Active Liliana Estrada MD PhD Active AMOXICILLIN 500 MG CAP 1 tab by mouth 3 times daily 08/12/16 AMOXICILLIN 91340556854 No Longer Active Liliana Estrada MD PhD Acti ve TESSALON PERLES 100 MG CAP 1 tablet by mouth 3 times daily 11/01 BENZONATATE 12560127796 No Longer Active Liliana Estrada MD PhD Active FLAGYL 500 MG TAB 1 tablet by mouth two times daily 07/11/29 METRONIDAZOLE 06073833094 No Longer Active Nilam Weber Active ZITHROMAX 250 MG TAB 2 po today, then 1 po q days 2-5 AZITHROMYCIN 54543195280 No Longer Active Arie Casper MD Acti ve VITAMINS 0.8 MG TABS take 1 tab po qday 08/08 [id number] 39630779154 No Longer Active Arie Casper MD Active IBUPROFEN 800 MG TABS take one po Q 8 hours IBU PROFEN 90543529496 No Longer Active Arie Casper MD Active [facility] TUSSIN COUGH/COLD CF 5-10-100 MG/5ML LIQD 2 teaspoons ev eliud 4 hours [id number] 16647835140 No Longer Active Blaine Casper MD Active COMTREX COLD/COUGH DAY/NITE MS 5-2-10-325 MG MISC 2 caps deja ry 4 hours [id number]-APAP 12561843739 No Longer Active Da aleksandra Casper MD Active CHLORASEPTIC MAX SORE THROAT 15-10 MG LOZG 1 every 2 hours prn 2 BENZOCAINE-MENTHOL 17893402686 No Longer Active Arie Marcelo Active PREDNISONE 20 MG TAB 2 tabs daily for 3 days, 1 t ab daily for 3 days, 1/2 tab daily for 2 days PREDNISONE 29579726661 No Longer Active Jose Zhong MD Active AZITHROMYCIN 250 MG TABS 2 po qd x 1 day, then 1 po qd x 4 days AZITHROMYCIN 39533407748 No Longer Active Jose Zhong MD Active ZOFRAN ODT 4 MG TBDP 1 po q6hr PRN Nausea ONDAN SETRON 35451715257 No Longer Active Rich Rosales MD Active ZOFRAN 4 MG TABS 1 tablet every 4 hours ONDANSE JERRELL HCL 19210287417 No Longer Active Rich Rosales MD Active MUCINEX 600 MG [id number] Take 1-2 tablets every 12 hours GUAIFENESIN 15584150851 No Longer Active Rich Rosales MD Activ e BACTRIM 400-80 MG TABS take one po BID SULFAMETHOXAZOLE-TRIMETHOPRIM 43101272096 No Longer Active Abelardo HERNANDEZ Active AZITHROMYCIN 500 MG TABS 1 PO q day x 6 days AZ ITHROMYCIN 71700729061 No Longer Active Tin HERNANDEZ Active ZITHROMAX 250 MG TAB 2 po today, then 1 po q days 2-5 AZITHROMYCIN 28209756818 No Longer Active Arie Casper MD Acti ve ZITHROMAX 250 MG TAB 2 po today, then 1 po q days 2-5 AZITHROMYCIN 65170674196 No Longer Active Arie Casper MD Acti ve AMOXICILLIN 500 MG CAP 1 tab by mouth 3 times daily 09/23/20 AMOXICILLIN 61712067138 No Longer Active Arie Casper MD Acti ve BACTRIM DS 800-160 MG TAB 1 tab by mouth twice daily 2 TRIMETHOPRIM-SULFAMETHOXAZOLE 38801445237 No Longer Active Arie Casper MD Active AMOXICILLIN 500 MG TABS take 1 tab po TID AMOXI CILLIN 09380463766 No Longer Active Arie Casper MD Active BACTRIM DS 800-160 MG TAB 1 tab by mouth twice daily 2 BACTRIM DS 800-160 MG TAB TRIMETHOPRIM-SULFAMETHOXAZOLE Inac tive MUCINEX 600 MG [id number] Take 1-2 tablets every 12 hours MUCINEX 600 MG [id number] GUAIFENESIN Inactive ZOFRAN 4 MG TABS 1 tablet every 4 hours ZOFRAN 4 MG TABS 410025 ONDANSETRON HCL Inactive ZOFRAN ODT 4 MG TBDP 1 po q6hr PRN Nausea ZOFRAN ODT 4 MG TBDP 582055 ONDANSETRON Inactive CHLORASEPTIC MAX SORE THROAT 15-10 MG LOZG 1 every 2 hours prn 2 /04/30 CHLORASEPTIC MAX SORE THROAT 15-10 MG LOZG BENZO ARINA-MENTHOL Inactive COMTREX COLD/COUGH DAY/NITE MS 5-2-10-325 MG MISC 2 caps deja ry 4 hours COMTREX COLD/COUGH DAY/NITE MS 5-2-10-325 MG MIS C [id number] Inactive [facility] TUSSIN COUGH/COLD CF 5-10-100 MG/5ML LIQD 2 teaspoons ev eliud 4 hours [facility] TUSSIN COUGH/COLD CF 5-10-100 MG/5ML LIQD [id number] Inactive IBUPROFEN 800 MG TABS take one po Q 8 hours IBUPROFEN 800 MG TABS 969910 IBUPROFEN Inactive VITAMINS 0.8 MG TABS take 1 tab po qday 08/08 VITAMINS 0.8 MG TABS [id number] Inactive TESSALON PERLES 100 MG CAP 1 tablet by mouth 3 times daily 11/01 TESSALON PERLES 100 MG CAP 624632 BENZONATATE Inact zaid AMOXICILLIN 500 MG CAP 1 tab by mouth 3 times daily 08/12/16 AMOXICILLIN 500 MG CAP 673229 AMOXICILLIN Inactive AMOXICILLIN 500 MG TABS take 1 tab po TID AMOXICILLIN 500 MG TABS 521836 AMOXICILLIN Inactive AMOXICILLIN 500 MG CAP 1 tab by mouth 3 times daily 09/23/20 AMOXICILLIN 500 MG CAP 099666 AMOXICILLIN Inactive ZITHROMAX 250 MG TAB 2 po today, then 1 po q days 2-5 ZITHROMAX 250 MG TAB 5481345 AZITHROMYCIN Inactive ZITHROMAX 250 MG TAB 2 po today, then 1 po q days 2-5 ZITHROMAX 250 MG TAB 6577250 AZITHROMYCIN Inactive AZITHROMYCIN 500 MG TABS 1 PO q day x 6 days 3 AZITHROMYCIN 500 MG TABS 8718378 AZITHROMYCIN Inactive BACTRIM 400-80 MG TABS take one po BID BA CTRIM 400-80 MG TABS 009864 SULFAMETHOXAZOLE-TRIMETHOPRIM Inactive AZITHROMYCIN 250 MG TABS 2 po qd x 1 day, then 1 po qd x 4 days AZITHROMYCIN 250 MG TABS 8340385 AZITHROMYCIN Inactiv e PREDNISONE 20 MG TAB 2 tabs daily for 3 days, 1 t ab daily for 3 days, 1/2 tab daily for 2 days PREDNISONE 20 MG TAB 685247 PREDNISON E Inactive ZITHROMAX 250 MG TAB 2 po today, then 1 po q days 2-5 ZITHROMAX 250 MG TAB 5795582 AZITHROMYCIN Inactive FLAGYL 500 MG TAB 1 tablet by mouth two times daily 07/11/29 FLAGYL 500 MG TAB 789109 METRONIDAZOLE Inactive AUGMENTIN 875-125 MG TAB 1 tab by mouth twice daily with food 20 08/12/16 AUGMENTIN 875-125 MG TAB 280676 AMOXICILLIN-POT CLAVULA ANGELO Inactive Advance Directives Directive [...] 11 .6-14.8 platelet count 214 10^3/MM^3 10*3/mm3 128-682 3113/01/08 lymphocytes as percent of blood leukocytes 28.4 % 20.5-51.1 monocytes as percent of blood leukocytes 12.7 % 1.7-9.3 neutrophils as percent of blood leukocytes 54.8 % 42.2-75.2 leukocyte count, blood 4.4 10^3/MM^3 10*3/mm3 4.6-10.2 Lab Report: LILIA INFLUENZA A/B - [place] [...] 5.0-8.5 Encounters Code Encounter Date Provider Facility CPT-72406 Level 3 Est. Patient 14:18:20 CDT Rich Rosales MD [facility] CPT-55738 Level 4 Est. Patient 09:34:31 CDT Arie mcqueen MD [facility] CPT-47333 Level 3 Est. Patient 09:08:55 RN OR LVN Liliana vincent MD PhD [facility] CPT-35563 Level 3 Est. Patient 16:44:07 RN OR LVN Arie mcqueen MD [facility] CPT-64190 Level 3 Est. Patient 10:44:27 CDT Arie mcqueen MD [facility] CPT-18904 Level 3 Est. Patient 08:55:41 CDT Jose Zhong MD [facility] CPT-49283 Level 3 Est. Patient 18:37:31 CDT Liliana vincent MD PhD [facility] CPT-43162 Level 3 Est. Patient 14:28:23 CDT Abelardo HERNANDEZ [facility] CPT-05359 Level 3 Est. Patient 15:18:13 RN OR LVN Arie mcqueen MD [facility] CPT-14650 Level 3 Est. Patient 10:11:29 RN OR LVN Arie mcqueen MD [facility] CPT-09581 Level 3 Est. Patient 10:55:57 RN OR LVN Jono black DO [facility] CPT-33205 Level 3 Est. Patient 17:29:05 CDT Arie mcqueen MD [facility] Procedures Code Procedure Name Date Entry Date Standard Desc ription CPT-OV Office Visit 15:30:23 CDT CPT-94523 Sono pelvis non OB uterus ovaries cervix 15:50:44 CDT CPT-00395 Hand comp min 3V 16:42:32 CDT CPT-81184 Abd compl w upright 12:17:01 CDT CPT-99178 Nexplanon Placement 15:07:39 RN OR LVN CPT-13755 Removal of IUD 15:07:39 RN OR LVN CPT-01518 TB Tubersol 12:09:32 CDT CPT-87101 TB Tubersol 13:55:43 CDT
--- OUTSIDE RECORDS SUMMARY | 2020-03-03 08:02 | XMS REPORT | Clinical Summary ---
Author Author Admin, Diamante Marcelo Organization [facility] Address Unknown Phone Unavailable Allergies, [...] A cute pharyngitis Nausea 787.02 Active Brii Lrason [employer]PERVISOR Nausea alone URI 465.9 Active Jono [...] Anxiety with depression 300.4 Active Glenn Larson [employer] SUPERVISOR Dysthymic disorder URI 465.9 Active Jono Gagnon DO Acu te upper respiratory infections of unspecified site Vaginal bleeding 623.8 Active Brii Larson AP RN Other specified noninflammatory disorders of vagina [...] discharge ICD-623.5 Inactive Liliana lares MD PhD FH BREAST CANCER ICD-V16.3 Inactive Jose Marcelo Urinary frequency ICD-788.41 Inactive Roseann willett Medication List Medication Instructions Start Date Stop Date Generic Name NDC Status Provider Patient Instruction LOMOTIL 2.5-0.025 MG TAB 1 tab po four times a day as needed for diarrhea DIPHENOXYLATE-ATROPINE 84619893890 No Longer Active Fozia Casper MD Active ZOLOFT 50 MG TAB 1 tablet by mouth daily SERTRA LINE HCL 09409458823 No Longer Active Arie Casper MD Active NAPROXEN 500 MG TAB Take 1 tab BID NAPROXEN 332 44996240 No Longer Active Arie Casper MD Active NEXPLANON IMPL Left arm subcutaneously ETONOGES TREL IMPL 71736665824 Active Brii Larson APRN Active CEFDINIR 300 MG CAPS 1 po BID x 10 days CEFDINI R 09054142447 No Longer Active Brii Larson APRN Active PREDNISONE 20 MG TAB 1 tablet daily for airway inflammation 2015 PREDNISONE 40301400501 No Longer Active Brii Larson APRN Active CEFDINIR 300 MG CAPS 1 po BID x 10 days CEFDINI R 70370964187 No Longer Active Jono Gagnon DO Active FLONASE 50 MCG/ACT SUSP 1 spray each nostril twice d aily for allergies and runny nose until gone FLUTICASONE PROPIONATE No Longe r Active Jono Gagnon DO Active ALPRAZOLAM 0.25 MG TAB 1 tablet by mouth every 8 hours as ne eded for stress ALPRAZOLAM 69567963246 No Longer Active Jono Gagnon DO Active ZITHROMAX Z-EMIL 250 MG TABS 2 today, then 1 daily for 4 days 201 03/31/18 AZITHROMYCIN 37101379480 No Longer Active Arie Casper MD Active PROTONIX 40 MG ORAL TBEC 1 po q a.m. PANTOPRAZO LE SODIUM 71154689194 Active Arie Casper MD Active PREDNISONE 20 MG TAB 2 tabs daily for 3 days, 1 t ab daily for 3 days, 1/2 tab daily for 2 days PREDNISONE 97997803371 No Longer Active Brii Larson APRN Active PREDNISONE 20 MG TAB 1 tablet twice daily for 2 d ays, then 1 tablet once daily for 2 days PREDNISONE 31008558937 No Longer Active Brii Larson APRN Active PROMETHAZINE HCL 12.5 MG TABS 1 tablet by mouth every 6 hours as needed for nausea/vomiting PROMETHAZINE HCL 22214390543 No Longe r Active Jono Gagnon DO Active CITRATE OF MAGNESIA ORAL SOLN 1 bottle today for constipation 20 07/10/15 MAGNESIUM CITRATE 51354099292 No Longer Active Jono Gagnon DO Active ZOFRAN 4 MG ORAL TABS 1 TAB PO Q 6 HRS PRN NAUSEA 2014 ONDANSETRON HCL 76242776330 No Longer Active Brii Larson APRN A ctive LOMOTIL 2.5-0.025 MG TAB 1 to 2 four times a day as needed f or diarrhea DIPHENOXYLATE-ATROPINE 66312701394 No Longer Active January Larson APRN Active AMOXICILLIN 500 MG TABS 2 tabs twice a day for 10 days AMOXICILLIN 08253079173 No Longer Active Brii Larson APRN Acti ve CYCLOBENZAPRINE HCL 10 MG TABS 1/2 - 1 tablet by mouth three times daily as needed for muscle spasm/pain CYCLOBENZAPRINE HCL 43989202019 No Longer Active Arie Casper MD Active LOMOTIL 2.5-0.025 MG TABS 1 to 2 four times a day as needed for diarrhea DIPHENOXYLATE-ATROPINE 88168150899 No Longer Active D freddy Casper MD Active MACROBID 100 MG CAP 1 cap by mouth twice daily NITROFURANTOIN MONOHYD MACRO 72401550861 No Longer Active Arie Casper MD Active ZYRTEC ALLERGY 10 MG CAPS 1 po qd CETIRIZINE HCL 77524430809 No Longer Active Arie Casper MD Active AZITHROMYCIN 250 MG TABS 2 po qd x 1 day, then 1 po qd x 4 days AZITHROMYCIN 75034277410 No Longer Active Jessica Heaton APRN Active PREDNISONE 20 MG TAB 2 tabs daily for 3 days, 1 t ab daily for 3 days, 1/2 tab daily for 2 days PREDNISONE 76086579937 No Longer Active Jessica Heaton APRN Active PROMETHAZINE HCL 25 MG TABS 1 four times a day as needed for vomiting PROMETHAZINE HCL 12406390734 No Longer Active Myrna Roberto MD Active BACTRIM DS 800-160 MG TABS 1 twice a day SULFAMETHOXAZOLE-TRIMETHOPRIM 62468114402 No Longer Active Myrna Roberto MD Active VICKS DAYQUIL SEVERE COLD/FLU TABS 1 tab every 6 hours prn 12/10 [id number] TABS 00284100852 No Longer Active Myrna leigh MD Active GUAIFENESIN-CODEINE 100-10 MG/5ML ORAL SYRP 2 tsp every 6 hours prn GUAIFENESIN-CODEINE 87801822665 No Longer Active Myrna Roberto MD Active NAPROXEN 500 MG TAB one tab PO BID NAPROXEN 332 43960382 No Longer Active Myrna Roberto MD Active AUGMENTIN 875-125 MG TAB 1 tab by mouth twice daily with food 08/12/16 AMOXICILLIN-POT CLAVULANATE 57120821636 No Longer Active Liliana Estrada MD PhD Active AMOXICILLIN 500 MG CAP 1 tab by mouth 3 times daily 08/12/16 AMOXICILLIN 85968190912 No Longer Active Liliana Estrada MD PhD Acti ve TESSALON PERLES 100 MG CAP 1 tablet by mouth 3 times daily 11/01 BENZONATATE 18434036721 No Longer Active Liliana Estrada MD PhD Active FLAGYL 500 MG TAB 1 tablet by mouth two times daily 07/11/29 METRONIDAZOLE 19696413353 No Longer Active Nilam Raida Active ZITHROMAX 250 MG TAB 2 po today, then 1 po q days 2-5 AZITHROMYCIN 36694402564 No Longer Active Arie Casper MD Acti ve VITAMINS 0.8 MG TABS take 1 tab po qday 08/08 [id number] 38830552403 No Longer Active Arie Casper MD Active IBUPROFEN 800 MG TABS take one po Q 8 hours IBU PROFEN 93328387960 No Longer Active Arie Casper MD Active [facility] TUSSIN COUGH/COLD CF 5-10-100 MG/5ML LIQD 2 teaspoons ev eliud 4 hours [id number] 01808257595 No Longer Active Blaine Casper MD Active COMTREX COLD/COUGH DAY/NITE MS 5-2-10-325 MG MISC 2 caps deja ry 4 hours [id number] 50688567363 No Longer Active Da aleksandra Casper MD Active CHLORASEPTIC MAX SORE THROAT 15-10 MG LOZG 1 every 2 hours prn 2 BENZOCAINE-MENTHOL 93699320208 No Longer Active Arie Marcelo Active PREDNISONE 20 MG TAB 2 tabs daily for 3 days, 1 t ab daily for 3 days, 1/2 tab daily for 2 days PREDNISONE 35958698159 No Longer Active Jose Zhong MD Active AZITHROMYCIN 250 MG TABS 2 po qd x 1 day, then 1 po qd x 4 days AZITHROMYCIN 67333120522 No Longer Active Jose Zhong MD Active ZOFRAN ODT 4 MG TBDP 1 po q6hr PRN Nausea ONDAN SETRON 23477593696 No Longer Active Rich Rosales MD Active ZOFRAN 4 MG TABS 1 tablet every 4 hours ONDANSE JERRELL HCL 97479994288 No Longer Active Rich Rosales MD Active MUCINEX 600 MG [id number] Take 1-2 tablets every 12 hours GUAIFENESIN 07188398128 No Longer Active Rich Rosales MD Activ e BACTRIM 400-80 MG TABS take one po BID SULFAMETHOXAZOLE-TRIMETHOPRIM 12512603659 No Longer Active Abelardo HERNANDEZ Active AZITHROMYCIN 500 MG TABS 1 PO q day x 6 days AZ ITHROMYCIN 99934276042 No Longer Active Tin HERNANDEZ Active ZITHROMAX 250 MG TAB 2 po today, then 1 po q days 2-5 AZITHROMYCIN 31250951823 No Longer Active Arie Casper MD Acti ve ZITHROMAX 250 MG TAB 2 po today, then 1 po q days 2-5 AZITHROMYCIN 82105744144 No Longer Active Arie Casper MD Acti ve AMOXICILLIN 500 MG CAP 1 tab by mouth 3 times daily 20 09/23/20 AMOXICILLIN 04578216099 No Longer Active Arie Casper MD Acti ve BACTRIM DS 800-160 MG TAB 1 tab by mouth twice daily 2 TRIMETHOPRIM-SULFAMETHOXAZOLE 52486510362 No Longer Active Arie Casper MD Active AMOXICILLIN 500 MG TABS take 1 tab po TID AMOXI CILLIN 69039653228 No Longer Active Arie Casper MD Active BACTRIM DS 800-160 MG TAB 1 tab by mouth twice daily 2 BACTRIM DS 800-160 MG TAB 252878 TRIMETHOPRIM-SULFAMETHOXAZOLE Inac tive MUCINEX 600 MG [id number] Take 1-2 tablets every 12 hours MUCINEX 600 MG [id number] GUAIFENESIN Inactive ZOFRAN 4 MG TABS 1 tablet every 4 hours ZOFRAN 4 MG TABS 961365 ONDANSETRON HCL Inactive ZOFRAN ODT 4 MG TBDP 1 po q6hr PRN Nausea ZOFRAN ODT 4 MG TBDP 308329 ONDANSETRON Inactive CHLORASEPTIC MAX SORE THROAT 15-10 MG LOZG 1 every 2 hours prn 2 /04/30 CHLORASEPTIC MAX SORE THROAT 15-10 MG LOZG BENZO ARINA-MENTHOL Inactive COMTREX COLD/COUGH DAY/NITE MS 5-2-10-325 MG MISC 2 caps deja ry 4 hours COMTREX COLD/COUGH DAY/NITE MS 5-2-10-325 MG MIS C [id number] Inactive [facility] TUSSIN COUGH/COLD CF 5-10-100 MG/5ML LIQD 2 teaspoons ev eliud 4 hours [facility] TUSSIN COUGH/COLD CF 5-10-100 MG/5ML LIQD [id number] Inactive IBUPROFEN 800 MG TABS take one po Q 8 hours IBUPROFEN 800 MG TABS IBUPROFEN Inactive VITAMINS 0.8 MG TABS take 1 tab po qday 08/08 VITAMINS 0.8 MG TABS [id number] Inactive TESSALON PERLES 100 MG CAP 1 tablet by mouth 3 times daily 11/01 TESSALON PERLES 100 MG CAP 583074 BENZONATATE Inact zaid AMOXICILLIN 500 MG CAP 1 tab by mouth 3 times daily 08/12/16 AMOXICILLIN 500 MG CAP 391201 AMOXICILLIN Inactive GUAIFENESIN-CODEINE 100-10 MG/5ML ORAL SYRP 2 tsp every 6 hours prn GUAIFENESIN-CODEINE 100-10 MG/5ML ORAL SYRP 333222 GUAIFENESIN-CODEINE Inactive VICKS DAYQUIL SEVERE COLD/FLU TABS 1 tab every 6 hours prn 12/10 VICKS DAYQUIL SEVERE COLD/FLU TABS PHENYLEPHRINE -DM-GG-APAP TABS Inactive BACTRIM DS 800-160 MG TABS 1 twice a day BACTRIM DS 800- 160 MG TABS 683203 SULFAMETHOXAZOLE-TRIMETHOPRIM Inactive PROMETHAZINE HCL 25 MG TABS 1 four times a day as needed for vomiting PROMETHAZINE HCL 25 MG TABS 858122 PROMETHAZINE HCL Inactive ZYRTEC ALLERGY 10 MG CAPS 1 po qd ZY RTEC ALLERGY 10 MG CAPS CETIRIZINE HCL Inactive MACROBID 100 MG CAP 1 cap by mouth twice daily MACROBID 100 MG CAP 6815563 NITROFURANTOIN MONOHYD MACRO Inactive LOMOTIL 2.5-0.025 MG TABS 1 to 2 four times a day as needed for diarrhea LOMOTIL 2.5-0.025 MG TABS 0186270 DIPHENOXYLATE-A TROPINE Inactive CYCLOBENZAPRINE HCL 10 MG TABS 1/2 - 1 tablet by mouth three times daily as needed for muscle spasm/pain CYCLOBENZAP RINE HCL 10 MG TABS 236813 CYCLOBENZAPRINE HCL Inactive AMOXICILLIN 500 MG TABS 2 tabs twice a day for 10 days AMOXICILLIN 500 MG TABS 712072 AMOXICILLIN Inactive LOMOTIL 2.5-0.025 MG TAB 1 to 2 four times a day as needed f or diarrhea LOMOTIL 2.5-0.025 MG TAB 2687788 DIPHENOXYLATE-AT ROPINE Inactive ZOFRAN 4 MG ORAL TABS 1 TAB PO Q 6 HRS PRN NAUSEA 2014 ZOFRAN 4 MG ORAL TABS 833936 ONDANSETRON HCL Inactive CITRATE OF MAGNESIA ORAL SOLN 1 bottle today for constipation 20 07/10/15 CITRATE OF MAGNESIA ORAL SOLN 0330751 MAGNESIUM CITRATE Inactive PROMETHAZINE HCL 12.5 MG TABS 1 tablet by mouth every 6 hours as needed for nausea/vomiting PROMETHAZINE HCL 12.5 MG TABS 852056 PROMETHAZINE HCL Inactive PREDNISONE 20 MG TAB 1 tablet twice daily for 2 d ays, then 1 tablet once daily for 2 days PREDNISONE 20 MG TAB 175203 PREDNISONE Inac tive ALPRAZOLAM 0.25 MG TAB 1 tablet by mouth every 8 hours as ne eded for stress ALPRAZOLAM 0.25 MG TAB 593210 ALPRAZOLAM Inact zaid FLONASE 50 MCG/ACT SUSP 1 spray each nostril twice d aily for allergies and runny nose until gone FLONASE 50 MCG/ACT SUSP F LUTICASONE PROPIONATE Inactive PREDNISONE 20 MG TAB 1 tablet daily for airway inflammation 2015 PREDNISONE 20 MG TAB 404246 PREDNISONE Inactive NAPROXEN 500 MG TAB Take 1 tab BID NAPROXEN 500 MG TAB 364646 NAPROXEN Inactive ZOLOFT 50 MG TAB 1 tablet by mouth daily ZOLOFT 50 MG TAB 723757 SERTRALINE HCL Inactive LOMOTIL 2.5-0.025 MG TAB 1 tab po four times a day as needed for diarrhea LOMOTIL 2.5-0.025 MG TAB 9009883 DIPHENOXYLATE-AT ROPINE Inactive AMOXICILLIN 500 MG TABS take 1 tab po TID AMOXICILLIN 500 MG TABS 540110 AMOXICILLIN Inactive AMOXICILLIN 500 MG CAP 1 tab by mouth 3 times daily 09/23/20 AMOXICILLIN 500 MG CAP 719832 AMOXICILLIN Inactive ZITHROMAX 250 MG TAB 2 po today, then 1 po q days 2-5 ZITHROMAX 250 MG TAB 3330666 AZITHROMYCIN Inactive ZITHROMAX 250 MG TAB 2 po today, then 1 po q days 2-5 ZITHROMAX 250 MG TAB 7689490 AZITHROMYCIN Inactive AZITHROMYCIN 500 MG TABS 1 PO q day x 6 days 3 AZITHROMYCIN 500 MG TABS 0189169 AZITHROMYCIN Inactive BACTRIM 400-80 MG TABS take one po BID BA CTRIM 400-80 MG TABS 044101 SULFAMETHOXAZOLE-TRIMETHOPRIM Inactive AZITHROMYCIN 250 MG TABS 2 po qd x 1 day, then 1 po qd x 4 days AZITHROMYCIN 250 MG TABS 6874542 AZITHROMYCIN Inactiv e PREDNISONE 20 MG TAB 2 tabs daily for 3 days, 1 t ab daily for 3 days, 1/2 tab daily for 2 days PREDNISONE 20 MG TAB 270779 PREDNISON E Inactive ZITHROMAX 250 MG TAB 2 po today, then 1 po q days 2-5 ZITHROMAX 250 MG TAB 6987764 AZITHROMYCIN Inactive FLAGYL 500 MG TAB 1 tablet by mouth two times daily 07/11/29 FLAGYL 500 MG TAB 207926 METRONIDAZOLE Inactive AUGMENTIN 875-125 MG TAB 1 tab by mouth twice daily with food 20 08/12/16 AUGMENTIN 875-125 MG TAB 951006 AMOXICILLIN-POT CLAVULA ANGELO Inactive NAPROXEN 500 MG TAB one tab PO BID NAPROXEN 500 MG TAB 154931 NAPROXEN Inactive PREDNISONE 20 MG TAB 2 tabs daily for 3 days, 1 t ab daily for 3 days, 1/2 tab daily for 2 days PREDNISONE 20 MG TAB 027248 PREDNISON E Inactive AZITHROMYCIN 250 MG TABS 2 po qd x 1 day, then 1 po qd x 4 days AZITHROMYCIN 250 MG TABS 6993362 AZITHROMYCIN Inactiv e PREDNISONE 20 MG TAB 2 tabs daily for 3 days, 1 t ab daily for 3 days, 1/2 tab daily for 2 days PREDNISONE 20 MG TAB 753342 PREDNISON E Inactive ZITHROMAX Z-EMIL 250 MG TABS 2 today, then 1 daily for 4 days 201 03/31/18 ZITHROMAX Z-EMIL 250 MG TABS 9498975 AZITHROMYCIN Inac tive CEFDINIR 300 MG CAPS 1 po BID x 10 days C EFDINIR 300 MG CAPS 788830 CEFDINIR Inactive CEFDINIR 300 MG CAPS 1 po BID x 10 days C EFDINIR 300 MG CAPS 709418 CEFDINIR Inactive Advance Directives Directive Description Start [...] Panel - Chemistry sodium, serum 136 mmol/L 141-495 8245/04/26 carbon dioxide, venous blood 29.9 mmol/L 21.0-32 [...] Negative Encounters Code Encounter Date Provider Facility CPT-08806 Level 4 Est. Patient 15:29:22 LUSTERER Arie mcqueen MD [facility] CPT-11813 Level 3 Est. Patient 15:18:16 LUSTERER Jono black [facility]-02073 Level 4 Est. Patient 12:08:40 LUSTERER Steve METAL HANGING SUPERVISOR [facility]-36567 Level 3 Est. Patient 09:24:42 CDT [facility]-05539 Level 3 Est. Patient 09:12:56 CDT Arie mcqueen MD [facility]-21672 Level 3 Est. Patient 16:40:54 CDT Jose Zhong MD [facility] CPT-50452 Level 2 Est. Patient 13:01:13 CDT [facility]-89495 Level 3 Est. Patient 11:55:30 LUSTERER Jono black [facility]-53430 Level 3 Est. Patient 09:52:36 LUSTERER Steve METAL HANGING SUPERVISOR [facility] CPT-90566 Level 3 Est. Patient 16:25:33 LUSTERER Rich Rosales MD [facility] CPT-44080 Level 3 Est. Patient 20:33:55 CDT Arie mcqueen MD [facility] CPT-68731 Level 3 Est. Patient 14:18:20 CDT Rich Roslaes MD [facility] CPT-11838 Level 4 Est. Patient 09:34:31 CDT Arie mcqueen MD [facility] CPT-12380 Level 3 Est. Patient 09:08:55 LUSTERER Liliana vincent MD PhD [facility] CPT-31737 Level 3 Est. Patient 16:44:07 LUSTERER Arie mcqueen MD [facility] CPT-21083 Level 3 Est. Patient 10:44:27 CDT Arie mcqueen MD [facility] CPT-89613 Level 3 Est. Patient 08:55:41 CDT Jose Zhong MD [facility] CPT-17638 Level 3 Est. Patient 18:37:31 CDT Liliana vincent MD PhD [facility] CPT-49947 Level 3 Est. Patient 14:28:[address] [facility] CPT-57429 Level 3 Est. Patient 15:18:13 LUSTERER Arie mcqueen MD [facility] CPT-77089 Level 3 Est. Patient 10:11:29 LUSTERER Arie mcqueen MD [facility] CPT-95165 Level 3 Est. Patient 10:55:57 LUSTERER Jono black DO [facility] CPT-69375 Level 3 Est. Patient 17:29:05 CDT Arie mcqueen MD [facility] Procedures Code Procedure Name Date Entry Date Standard Desc ription CPT-56578 Sono transvag pelvis non OB uterus ovari es cervix - XRAY USE ONLY 08:58:14 LUSTERER CPT-86330 UA w micro - LAB USE ONLY 16:04:56 LUSTERER 2015 CPT-31065 Wet Prep/GEN - LAB USE ONLY 16:04:56 LUSTERER 20 08/10/29 CPT-99125 First Vx - Ix admin via ID I M or jet injects without counseling by physician 16:57:10 CDT CPT-94301 Fluzone Preservative Free Intramuscular Suspension 16:57:10 CDT CPT-J0696 Rocephin 1000 mg (Ceftriaxone) 11:49:23 CDT CPT-J1040 Depo Medrol 80 mg (Methyl Prednisolone A cetate) 11:49:23 CDT CPT-J1100 Decadron 8mg (Dexamethasone) 11:49:23 CDT 2 CPT-17729 Abx/Therapy Injection 11:49:23 CDT CPT-87806 Abx/Therapy Injection 11:49:23 CDT CPT-08788 Abd compl w upright 09:07:26 LUSTERER CPT-00501 Ear Wash 16:12:47 LUSTERER CPT-OV Office Visit 11:12:01 CDT CPT-OV Office Visit 15:30:23 CDT CPT-72112 Sono pelvis non OB uterus ovaries cervix 15:50:44 CDT CPT-34289 Hand comp min 3V 16:42:32 CDT CPT-35271 Abd compl w upright 12:17:01 CDT CPT-32654 Nexplanon Placement 15:07:39 LUSTERER CPT-97082 Removal of IUD 15:07:39 LUSTERER CPT-21745 TB Tubersol 12:09:32 CDT CPT-64520 TB Tubersol 13:55:43 CDT
--- OUTSIDE RECORDS SUMMARY | 2020-03-03 08:02 | XMS REPORT | Clinical Summary ---
Author Author Admin, Diamante Marcelo Organization [employer] Address Unknown Phone Unavailable Allergies, Adverse Reactions, [...] MD PhD Cystitis, unspecified SINUSITIS 473.9 Resolved iLliana Estrada MD PhD Unspecified sinusitis (chronic) CONTRACEPTIVE [...] Raida A cute pharyngitis Nausea 787.02 Active Biri Larson COMPENSATION MANAGER Nausea alone URI 465.9 Active Jono Gagnon DO Acu te upper respiratory infections of unspecified site Allergic rhinitis 477.9 Active Brii Christianson PRN Allergic rhinitis, cause unspecified Abdominal pain, right lower quadrant 789.03 Active Jose Zhong MD Abdominal pain, right lower quadrant Urinary frequency 788.41 Inactive Roseann Crawford Urinary frequency Urinary frequency 788.41 Active 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, BREWERY REPRESENTATIVE Urinary frequency Sinusitis - acute 461.9 Active Brii Christianson PRN Acute sinusitis, unspecified Anxiety with depression 300.4 Active Glenn Larson COMPENSATION MANAGER Dysthymic disorder URI 465.9 Active Jono Gagnon DO Acu te upper respiratory infections of unspecified site Vaginal bleeding 623.8 Active Brii MARROQUIN RN Other specified noninflammatory disorders of vagina High risk sexual behavior V69.2 Active Arie Casper MD High-risk sexual behavior GERD 530.81 Active Arie Casper MD Esophageal reflux Encounter for surveillance of implantable subdermal contraceptiv e Active Brii Larson COMPENSATION MANAGER Vaginal bleeding 623.8 Active Arie Casper [...] RELEASE 1 po q a.m. PANTOPRAZOLE SODIUM 93668529461 No Longer Active Arie Casper MD Active BACTRIM DS 800-160 MG ORAL TABLET 1 tab by mouth twice daily 201 05/02/30 TRIMETHOPRIM-SULFAMETHOXAZOLE 74221490827 No Longer Active R [facility] Active NEXPLANON IMPLANT right arm subcutaneously ETONOGESTREL IMPL 19667248286 No Longer Active Brii Larson APRN Acti ve TUSSIONEX PENNKINETIC ER 10-8 MG/5ML ORAL SUSPENSION E XTENDED RELEASE 5ml po q12hr PRN Cough HYDROCOD POLST-CHLORPHEN POLST 5 9990231928 No Longer Active Brii Larson APRN Active CETIRIZINE HCL 10 MG ORAL TABLET 1 po qd PRN Allergies CETIRIZINE HCL 34097878414 No Longer Active Brii Larson APRN Ac tive PREDNISONE 20 MG ORAL TABLET 2 tabs daily for 3 days, 1 tab daily for 3 days, 1/2 tab daily for 2 days PREDNISONE 76985582139 No Longer Active Arie Casper MD Active LOMOTIL 2.5-0.025 MG ORAL TABLET 1 tab po four times a day as needed for diarrhea DIPHENOXYLATE-ATROPINE 66496856914 No Lo nger Active Arie Casper MD Active ZOLOFT 50 MG ORAL TABLET 1 tablet by mouth daily 12/08 SERTRALINE HCL 38166623920 No Longer Active Arie Casper MD Ac tive NAPROXEN 500 MG ORAL TABLET Take 1 tab BID NAPR OXEN 93580647815 No Longer Active Arie Casper MD Active CEFDINIR 300 MG ORAL CAPSULE 1 po BID x 10 days CEFDINIR 82962837520 No Longer Active Brii Larson APRN Active PREDNISONE 20 MG ORAL TABLET 1 tablet daily for airway inflammat ion PREDNISONE 04430523180 No Longer Active Brii Larson APRN Active CEFDINIR 300 MG ORAL CAPSULE 1 po BID x 10 days CEFDINIR 47885737154 No Longer Active Jono Gagnon DO Active FLONASE 50 MCG/ACT NASAL SUSPENSION 1 spray each nostr il twice daily for allergies and runny nose until gone FLUT ICASONE PROPIONATE 00409227537 No Longer Active Jono Gagnon DO Active ALPRAZOLAM 0.25 MG ORAL TABLET 1 tablet by mouth every 8 hours as needed for stress ALPRAZOLAM 59998526525 No Longer Active Jono Gagnon DO Active ZITHROMAX Z-EMIL 250 MG ORAL TABLET 2 today, then 1 daily for 4 d ays AZITHROMYCIN 66684935260 No Longer Active Arie Casper MD Active PREDNISONE 20 MG ORAL TABLET 2 tabs daily for 3 days, 1 tab daily for 3 days, 1/2 tab daily for 2 days PREDNISONE 72460491813 No Longer Active Brii Larson APRN Active PREDNISONE 20 MG ORAL TABLET 1 tablet twice daily for 2 days, then 1 tablet once daily for 2 days PREDNISONE 14189732231 No Longer Active Brii Larson APRN Active PROMETHAZINE HCL 12.5 MG ORAL TABLET 1 tablet by mouth every 6 hours as needed for nausea/vomiting PROMETHAZINE HCL 49666913694 No L onger Active Jono Gagnon DO Active CITRATE OF MAGNESIA ORAL SOLUTION 1 bottle today for constipatio n MAGNESIUM CITRATE 88138766946 No Longer Active Jono Gagnon DO Active ZOFRAN 4 MG ORAL TABLET 1 TAB PO Q 6 HRS PRN NAUSEA 20 07/10/15 ONDANSETRON HCL 47277647034 No Longer Active Brii Larson APRN A ctive LOMOTIL 2.5-0.025 MG ORAL TABLET 1 to 2 four times a day as needed for diarrhea DIPHENOXYLATE-ATROPINE 11321927052 No Longer Active January Larson APRN Active AMOXICILLIN 500 MG ORAL TABLET 2 tabs twice a day for 10 days 20 07/09/11 AMOXICILLIN 15550996858 No Longer Active Brii Larson APRN Active CYCLOBENZAPRINE HCL 10 MG ORAL TABLET 1/2 - 1 tablet b y mouth three times daily as needed for muscle spasm/pain CYCLOBENZAPRINE HCL 43577484145 No Longer Active Arie Casper MD Active LOMOTIL 2.5-0.025 MG ORAL TABLET 1 to 2 four times a day as needed for diarrhea DIPHENOXYLATE-ATROPINE 74664755013 No Longer Active D freddy Casper MD Active MACROBID 100 MG ORAL CAPSULE 1 cap by mouth twice daily NITROFURANTOIN MONOHYD MACRO 78218544753 No Longer Active Arie Casper MD Active ZYRTEC ALLERGY 10 MG ORAL CAPSULE 1 po qd CE TIRIZINE HCL 62912880237 No Longer Active Arie Casper MD Active AZITHROMYCIN 250 MG ORAL TABLET 2 po qd x 1 day, then 1 po q d x 4 days AZITHROMYCIN 23264203266 No Longer Active Jessica salgado APRN Active PREDNISONE 20 MG ORAL TABLET 2 tabs daily for 3 days, 1 tab daily for 3 days, 1/2 tab daily for 2 days PREDNISONE 43753480598 No Longer Active Jessica Heaton COMPENSATION MANAGER Active PROMETHAZINE HCL 25 MG ORAL TABLET 1 four times a day as nee ded for vomiting PROMETHAZINE HCL 70858182987 No Longer Active Myrna Roberto MD Active BACTRIM DS 800-160 MG ORAL TABLET 1 twice a day 05/30 SULFAMETHOXAZOLE-TRIMETHOPRIM 36362229235 No Longer Active Myrna Roberto MD Active VICKS DAYQUIL SEVERE COLD/FLU TABLET 1 tab every 6 hours prn 201 02/22/17 [id number] TABS 32633484679 No Longer Active Chris Roberto MD Active GUAIFENESIN-CODEINE 100-10 MG/5ML ORAL SYRUP 2 tsp every 6 hours prn GUAIFENESIN-CODEINE 66584597114 No Longer Active Myrna Roberto MD Active NAPROXEN 500 MG ORAL TABLET one tab PO BID NAPR OXEN 30463231643 No Longer Active Myrna Roberto MD Active AUGMENTIN 875-125 MG ORAL TABLET 1 tab by mouth twice daily with food AMOXICILLIN-POT CLAVULANATE 08934403585 No Longer Act zaid Liliana Estrada MD PhD Active AMOXICILLIN 500 MG ORAL CAPSULE 1 tab by mouth 3 times daily 201 02/21/05 AMOXICILLIN 19405610532 No Longer Active Liliana Estrada MD PhD Active TESSALON PERLES 100 MG ORAL CAPSULE 1 tablet by mouth 3 times da cory BENZONATATE 14672382453 No Longer Active Liliana Estrada MD PhD Active FLAGYL 500 MG ORAL TABLET 1 tablet by mouth two times daily 2014 METRONIDAZOLE 37396413823 No Longer Active Nilam Doran tive ZITHROMAX 250 MG ORAL TABLET 2 po today, then 1 po q days 2-5 20 06/08/16 AZITHROMYCIN 48228731533 No Longer Active Arie Casper MD Active VITAMINS 0.8 MG ORAL TABLET take 1 tab po qday [id number] 54698358603 No Longer Active Arie Casper MD Active IBUPROFEN 800 MG ORAL TABLET take one po Q 8 hours 201 02/01/16 IBUPROFEN 56455963326 No Longer Active Arie Casper MD Acti ve [facility] TUSSIN COUGH/COLD CF 5-10-100 MG/5ML ORAL LIQUID 2 teasp oons every 4 hours [id number] 82687194817 No Longer Active Blaine Casper MD Active COMTREX COLD/COUGH DAY/NITE MS 5-2-10-325 MG ORAL 2 caps deja ry 4 hours [id number]-APAP 17595050528 No Longer Active Da aleksandra Casper MD Active CHLORASEPTIC MAX SORE THROAT 15-10 MG MOUTH/THROAT LOZENGE 1 every 2 hours prn BENZOCAINE-MENTHOL 61175619047 No Longer Active Arie Casper MD Active PREDNISONE 20 MG ORAL TABLET 2 tabs daily for 3 days, 1 tab daily for 3 days, 1/2 tab daily for 2 days PREDNISONE 69521422718 No Longer Active Jose Zhong MD Active AZITHROMYCIN 250 MG ORAL TABLET 2 po qd x 1 day, then 1 po q d x 4 days AZITHROMYCIN 25466962945 No Longer Active Jose Mcwilliams MD Active ZOFRAN ODT 4 MG ORAL TABLET DISINTEGRATING 1 po q6hr PRN Nausea ONDANSETRON 62053495241 No Longer Active Rich Rosales MD Active ZOFRAN 4 MG ORAL TABLET 1 tablet every 4 hours ONDANSETRON HCL 40985620606 No Longer Active Rich Rosales MD Activ e MUCINEX 600 MG ORAL TABLET EXTENDED RELEASE 12 HOUR Ta ke 1-2 tablets every 12 hours GUAIFENESIN 78227032936 No Longer Active Rich Rosales MD Active BACTRIM 400-80 MG ORAL TABLET take one po BID SULFAMETHOXAZOLE-TRIMETHOPRIM 55642224274 No Longer Active Abelardo HERNANDEZ Active AZITHROMYCIN 500 MG ORAL TABLET 1 PO q day x 6 days 20 03/02/23 AZITHROMYCIN 10824851087 No Longer Active Tin HERNANDEZ Activ e ZITHROMAX 250 MG ORAL TABLET 2 po today, then 1 po q days 2-5 20 10/03/08 AZITHROMYCIN 78874354813 No Longer Active Arie Casper MD Active ZITHROMAX 250 MG ORAL TABLET 2 po today, then 1 po q days 2-5 20 09/23/25 AZITHROMYCIN 69337270624 No Longer Active Arie Casper MD Active AMOXICILLIN 500 MG ORAL CAPSULE 1 tab by mouth 3 times daily 201 11/24/09 AMOXICILLIN 45651589684 No Longer Active Arie Casper MD Active BACTRIM DS 800-160 MG ORAL TABLET 1 tab by mouth twice daily 201 11/03/14 TRIMETHOPRIM-SULFAMETHOXAZOLE 97587032210 No Longer Active Fozia Casper MD Active AMOXICILLIN 500 MG ORAL TABLET take 1 tab po TID 08/05 AMOXICILLIN 16066931131 No Longer Active Arie Casper MD Acti ve BACTRIM DS 800-160 MG ORAL TABLET 1 tab by mouth twice daily 201 11/03/14 BACTRIM DS 800-160 MG ORAL TABLET 489127 TRIMETHOPRIM-SULFAMETHOXAZOLE Inactive MUCINEX 600 MG ORAL TABLET EXTENDED RELEASE 12 HOUR Ta ke 1-2 tablets every 12 hours MUCINEX 600 MG ORAL TABLET EXTENDED RELEA SE 12 HOUR GUAIFENESIN Inactive ZOFRAN 4 MG ORAL TABLET 1 tablet every 4 hours ZOFRAN 4 MG ORAL TABLET 196433 ONDANSETRON HCL Inactive ZOFRAN ODT 4 MG ORAL TABLET DISINTEGRATING 1 po q6hr PRN Nausea ZOFRAN ODT 4 MG ORAL TABLET DISINTEGRATING 791827 ONDAN SETRON Inactive CHLORASEPTIC MAX SORE THROAT 15-10 MG MOUTH/THROAT LOZENGE 1 every 2 hours prn CHLORASEPTIC MAX SORE THROAT 15-10 MG MOUTH/THROAT LOZENGE BENZOCAINE-MENTHOL Inactive COMTREX COLD/COUGH DAY/NITE MS 5-2-10-325 MG ORAL 2 caps deja ry 4 hours COMTREX COLD/COUGH DAY/NITE MS 5-2-10-325 MG ORA L [id number] Inactive [facility] TUSSIN COUGH/COLD CF 5-10-100 MG/5ML ORAL LIQUID 2 teasp oons every 4 hours [facility] TUSSIN COUGH/COLD CF 5-10-100 MG/5ML ORAL LI QUID [id number] Inactive IBUPROFEN 800 MG ORAL TABLET take one po Q 8 hours 201 02/01/16 IBUPROFEN 800 MG ORAL TABLET IBUPROFEN Inactive VITAMINS 0.8 MG ORAL TABLET take 1 tab po qday VITAMINS 0.8 MG ORAL TABLET [id number] E-FA Inactive TESSALON PERLES 100 MG ORAL CAPSULE 1 tablet by mouth 3 times da cory TESSALON PERLES 100 MG ORAL CAPSULE 105747 BENZONATATE Inactive AMOXICILLIN 500 MG ORAL CAPSULE 1 tab by mouth 3 times daily 201 02/21/05 AMOXICILLIN 500 MG ORAL CAPSULE 209622 AMOXICILLIN Inactive GUAIFENESIN-CODEINE 100-10 MG/5ML ORAL SYRUP 2 tsp every 6 hours prn GUAIFENESIN-CODEINE 100-10 MG/5ML ORAL SYRUP 872756 GUAIFENESIN-CODEINE Inactive VICKS DAYQUIL SEVERE COLD/FLU TABLET 1 tab every 6 hours prn 201 02/22/17 VICKS DAYQUIL SEVERE COLD/FLU TABLET PHENYLEPHRI [id number] TABS Inactive BACTRIM DS 800-160 MG ORAL TABLET 1 twice a day 05/30 BACTRIM DS 800-160 MG ORAL TABLET 401189 SULFAMETHOXAZOLE-TRIMETHOPRIM Inactiv e PROMETHAZINE HCL 25 MG ORAL TABLET 1 four times a day as nee ded for vomiting PROMETHAZINE HCL 25 MG ORAL TABLET 243546 PROMETHAZINE HCL Inactive ZYRTEC ALLERGY 10 MG ORAL CAPSULE 1 po qd ZYRTEC ALLERGY 10 MG ORAL CAPSULE CETIRIZINE HCL Inactive MACROBID 100 MG ORAL CAPSULE 1 cap by mouth twice daily MACROBID 100 MG ORAL CAPSULE 3158173 NITROFURANTOIN MONOHYD MACRO In active LOMOTIL 2.5-0.025 MG ORAL TABLET 1 to 2 four times a day as needed for diarrhea LOMOTIL 2.5-0.025 MG ORAL TABLET 3935756 DIPHENOXYLATE-ATROPINE Inactive CYCLOBENZAPRINE HCL 10 MG ORAL TABLET 1/2 - 1 tablet b y mouth three times daily as needed for muscle spasm/pain CYCLOBEN ZAPRINE HCL 10 MG ORAL TABLET 176019 CYCLOBENZAPRINE HCL Inactive AMOXICILLIN 500 MG ORAL TABLET 2 tabs twice a day for 10 days 20 07/09/11 AMOXICILLIN 500 MG ORAL TABLET 270222 AMOXICILLIN I nactive LOMOTIL 2.5-0.025 MG ORAL TABLET 1 to 2 four times a day as needed for diarrhea LOMOTIL 2.5-0.025 MG ORAL TABLET 5186883 DIPHENOXYLATE-ATROPINE Inactive ZOFRAN 4 MG ORAL TABLET 1 TAB PO Q 6 HRS PRN NAUSEA 20 07/10/15 ZOFRAN 4 MG ORAL TABLET 847264 ONDANSETRON HCL Inactive CITRATE OF MAGNESIA ORAL SOLUTION 1 bottle today for constipatio n CITRATE OF MAGNESIA ORAL SOLUTION 2350486 MAGNESIUM CITR ATE Inactive PROMETHAZINE HCL 12.5 MG ORAL TABLET 1 tablet by mouth every 6 hours as needed for nausea/vomiting PROMETHAZINE HCL 12.5 MG ORA L TABLET 902354 PROMETHAZINE HCL Inactive PREDNISONE 20 MG ORAL TABLET 1 tablet twice daily for 2 days, then 1 tablet once daily for 2 days PREDNISONE 20 MG ORAL TABLET 969831 PREDNISONE Inactive ALPRAZOLAM 0.25 MG ORAL TABLET 1 tablet by mouth every 8 hours as needed for stress ALPRAZOLAM 0.25 MG ORAL TABLET 633415 ALPRA ZOLAM Inactive FLONASE 50 MCG/ACT NASAL SUSPENSION 1 spray each nostr il twice daily for allergies and runny nose until gone FLON ASE 50 MCG/ACT NASAL SUSPENSION 4868765 FLUTICASONE PROPIONATE Inactive PREDNISONE 20 MG ORAL TABLET 1 tablet daily for airway inflammat ion PREDNISONE 20 MG ORAL TABLET 178512 PREDNISONE [place] ctive NAPROXEN 500 MG ORAL TABLET Take 1 tab BID NAPROXEN 500 MG ORAL TABLET 729487 NAPROXEN Inactive ZOLOFT 50 MG ORAL TABLET 1 tablet by mouth daily 12/08 ZOLOFT 50 MG ORAL TABLET 323198 SERTRALINE HCL Inactive LOMOTIL 2.5-0.025 MG ORAL TABLET 1 tab po four times a day as needed for diarrhea LOMOTIL 2.5-0.025 MG ORAL TABLET 1852105 DIPHENOXYLATE-ATROPINE Inactive CETIRIZINE HCL 10 MG ORAL TABLET 1 po qd PRN Allergies CETIRIZINE HCL 10 MG ORAL TABLET 2217214 CETIRIZINE HCL Inactiv e TUSSIONEX PENNKINETIC ER 10-8 MG/5ML ORAL SUSPENSION E XTENDED RELEASE 5ml po q12hr PRN Cough TUSSIONEX PENNKINETI C ER 10-8 MG/5ML ORAL SUSPENSION EXTENDED RELEASE HYDROCOD POLST-CHLORPHEN POLST I nactive NEXPLANON IMPLANT right arm subcutaneously NEXPLANON IMPLANT ETONOGESTREL IMPL Inactive PROTONIX 40 MG ORAL TABLET DELAYED RELEASE 1 po q a.m. PROTONIX 40 MG ORAL TABLET DELAYED RELEASE 645122 PANTOPRAZOLE SODI UM Inactive AMOXICILLIN 500 MG ORAL TABLET take 1 tab po TID 08/05 AMOXICILLIN 500 MG ORAL TABLET 547000 AMOXICILLIN Inactive AMOXICILLIN 500 MG ORAL CAPSULE 1 tab by mouth 3 times daily 201 11/24/09 AMOXICILLIN 500 MG ORAL CAPSULE 665933 AMOXICILLIN Inactive ZITHROMAX 250 MG ORAL TABLET 2 po today, then 1 po q days 2-5 20 09/23/25 ZITHROMAX 250 MG ORAL TABLET 233937 AZITHROMYCIN [place] ctive ZITHROMAX 250 MG ORAL TABLET 2 po today, then 1 po q days 2-5 20 10/03/08 ZITHROMAX 250 MG ORAL TABLET 224449 AZITHROMYCIN [place] ctive AZITHROMYCIN 500 MG ORAL TABLET 1 PO q day x 6 days 20 03/02/23 AZITHROMYCIN 500 MG ORAL TABLET 8451059 AZITHROMYCIN Inactive BACTRIM 400-80 MG ORAL TABLET take one po BID BACTRIM 400- 80 MG ORAL TABLET 634431 SULFAMETHOXAZOLE-TRIMETHOPRIM Inactive AZITHROMYCIN 250 MG ORAL TABLET 2 po qd x 1 day, then 1 po q d x 4 days AZITHROMYCIN 250 MG ORAL TABLET 100349 AZITHROMY ALLISON Inactive PREDNISONE 20 MG ORAL TABLET 2 tabs daily for 3 days, 1 tab daily for 3 days, 1/2 tab daily for 2 days PREDNISONE 20 MG ORAL T ABLET 982969 PREDNISONE Inactive ZITHROMAX 250 MG ORAL TABLET 2 po today, then 1 po q days 2-5 20 06/08/16 ZITHROMAX 250 MG ORAL TABLET 121598 AZITHROMYCIN [place] ctive FLAGYL 500 MG ORAL TABLET 1 tablet by mouth two times daily 2014 FLAGYL 500 MG ORAL TABLET 236254 METRONIDAZOLE Inacti ve AUGMENTIN 875-125 MG ORAL TABLET 1 tab by mouth twice daily with food AUGMENTIN 875-125 MG ORAL TABLET 211078 AMOXICIL ELSA-POT CLAVULANATE Inactive NAPROXEN 500 MG ORAL TABLET one tab PO BID NAPROXEN 500 MG ORAL TABLET 622529 NAPROXEN Inactive PREDNISONE 20 MG ORAL TABLET 2 tabs daily for 3 days, 1 tab daily for 3 days, 1/2 tab daily for 2 days PREDNISONE 20 MG ORAL T ABLET 326158 PREDNISONE Inactive AZITHROMYCIN 250 MG ORAL TABLET 2 po qd x 1 day, then 1 po q d x 4 days AZITHROMYCIN 250 MG ORAL TABLET 661274 AZITHROMY ALLISON Inactive PREDNISONE 20 MG ORAL TABLET 2 tabs daily for 3 days, 1 tab daily for 3 days, 1/2 tab daily for 2 days PREDNISONE 20 MG ORAL T ABLET 518313 PREDNISONE Inactive ZITHROMAX Z-EMIL 250 MG ORAL TABLET 2 today, then 1 daily for 4 d ays ZITHROMAX Z-EMIL 250 MG ORAL TABLET 951605 AZITHROMYCIN Inactive CEFDINIR 300 MG ORAL CAPSULE 1 po BID x 10 days 12/18 CEFDINIR 300 MG ORAL CAPSULE 809459 CEFDINIR Inactive CEFDINIR 300 MG ORAL CAPSULE 1 po BID x 10 days CEFDINIR 300 MG ORAL CAPSULE 653946 CEFDINIR Inactive PREDNISONE 20 MG ORAL TABLET 2 tabs daily for 3 days, 1 tab daily for 3 days, 1/2 tab daily for 2 days PREDNISONE 20 MG ORAL T ABLET 827652 PREDNISONE Inactive BACTRIM DS 800-160 MG ORAL TABLET 1 tab by mouth twice daily 201 05/02/30 BACTRIM DS 800-160 MG ORAL TABLET 571141 TRIMETHOPRIM-SULFAMETHOXAZOLE Inactive Advance Directives Directive Description Start [...] Range Description Lab Report: CBC, Quant [facility] [place] [place] Hematology leukocyte count, blood 7.8 10^3/MM^3 [...] 263 10^3/MM^3 10*3/mm3 142-424 Lab Report: Chlamydia/GC APTIMA/[id number] - Lab chlamydia DNA probe NOT DETECTED NOT DETECTED Lab Report: Chlamydia/GC [facility]/[id number] - Microbiology Neisseria gonorrhoeae DNA probe NOT [...] 5.0-8.5 Encounters Code Encounter Date Provider Facility CPT-22598 Level 3 Est. Patient 11:35:15 TRAINING DEVELOPMENT MANAGER Arie mcqueen MD [facility] CPT-94834 Level 3 Est. Patient 15:40:28 CDT Steve [facility] [place]-[address]609 Level 3 Est. Patient 16:40:36 CDT Arie mcqueen MD [facility] CPT-05849 Level 4 Est. Patient 15:29:22 TRAINING DEVELOPMENT MANAGER Arie mcqueen MD [facility] CPT-08737 Level 3 Est. Patient 15:18:16 TRAINING DEVELOPMENT MANAGER Jono black DO [facility] CPT-33287 Level 4 Est. Patient 12:08:40 TRAINING DEVELOPMENT MANAGER Steve [facility] [place]-92705 Level 3 Est. Patient 09:24:42 CDT Steve [facility] [place]-99406 Level 3 Est. Patient 09:12:56 CDT Arie mcqueen MD [facility] CPT-69499 Level 3 Est. Patient 16:40:54 CDT Jose Zhong MD [facility] CPT-97389 Level 2 Est. Patient 13:01:13 CDT Steve CABRERA [facility]-64861 Level 3 Est. Patient 11:55:30 TRAINING DEVELOPMENT MANAGER Jono black DO [facility] CPT-53390 Level 3 Est. Patient 09:52:36 TRAINING DEVELOPMENT MANAGER Brii Abhinav so COMPENSATION MANAGER [facility] CPT-26452 Level 3 Est. Patient 16:25:33 TRAINING DEVELOPMENT MANAGER Rich Rosales MD [facility]-23129 Level 3 Est. Patient 20:33:55 CDT Arie mcqueen MD [facility] CPT-69723 Level 3 Est. Patient 14:18:20 CDT Rich Rosales MD [facility] CPT-58954 Level 4 Est. Patient 09:34:31 CDT Arie mcqueen MD [facility]-08214 Level 3 Est. Patient 09:08:55 TRAINING DEVELOPMENT MANAGER Liliana vincent MD [facility]-06552 Level 3 Est. Patient 16:44:07 TRAINING DEVELOPMENT MANAGER Arie mcqueen MD [facility] CPT-71330 Level 3 Est. Patient 10:44:27 CDT Arie mcqueen MD [facility] CPT-93283 Level 3 Est. Patient 08:55:41 CDT Jose Zhong MD [facility] CPT-09256 Level 3 Est. Patient 18:37:31 CDT Liliana vincent MD [facility]-46586 Level 3 Est. Patient 14:28:23 CDT Abelardo HERNANDEZ [facility]-87813 Level 3 Est. Patient 15:18:13 TRAINING DEVELOPMENT MANAGER Arie mcqueen MD [facility] CPT-00035 Level 3 Est. Patient 10:11:29 TRAINING DEVELOPMENT MANAGER Arie mcqueen MD [facility] CPT-23015 Level 3 Est. Patient 10:55:57 TRAINING DEVELOPMENT MANAGER Jono black DO [facility] CPT-72574 Level 3 Est. Patient 17:29:05 CDT Arie mcqueen MD [facility] Procedures Code Procedure Name Date Entry Date Standard Desc ription CPT-79304 Nexplanon Removal 15:40:28 CDT CPT-57248 Sono transvag pelvis non OB uterus ovari es cervix - XRAY USE ONLY 08:58:14 TRAINING DEVELOPMENT MANAGER CPT-81109 UA w micro - LAB USE ONLY 16:04:56 TRAINING DEVELOPMENT MANAGER 2015 CPT-30771 Wet Prep/GEN - LAB USE ONLY 16:04:56 TRAINING DEVELOPMENT MANAGER 20 08/10/29 CPT-57171 First Vx - Ix admin via ID I M or jet injects without counseling by physician 16:57:10 CDT CPT-11030 Fluzone Preservative Free Intramuscular Suspension 16:57:10 CDT CPT-J0696 Rocephin 1000 mg (Ceftriaxone) 11:49:23 CDT CPT-J1040 Depo Medrol 80 mg (Methyl Prednisolone A cetate) 11:49:23 CDT CPT-J1100 Decadron 8mg (Dexamethasone) 11:49:23 CDT 2 CPT-89075 Abx/Therapy Injection 11:49:23 CDT CPT-30370 Abx/Therapy Injection 11:49:23 CDT CPT-60050 Abd compl w upright 09:07:26 TRAINING DEVELOPMENT MANAGER CPT-69798 Ear Wash 16:12:47 TRAINING DEVELOPMENT MANAGER CPT-OV Office Visit 11:12:01 CDT CPT-OV Office Visit 15:30:23 CDT CPT-82597 Sono pelvis non OB uterus ovaries cervix 15:50:44 CDT CPT-13935 Hand comp min 3V 16:42:32 CDT CPT-48496 Abd compl w upright 12:17:01 CDT CPT-52885 Nexplanon Placement 15:07:39 TRAINING DEVELOPMENT MANAGER CPT-32719 Removal of IUD 15:07:39 TRAINING DEVELOPMENT MANAGER CPT-99881 TB Tubersol 12:09:32 CDT CPT-22148 TB Tubersol 13:55:43 CDT
--- OUTSIDE RECORDS SUMMARY | 2020-03-03 08:03 | XMS REPORT | Clinical Summary ---
[...] site Abdominal pain 789.00 Active Brii Larson [employer] Abdominal pain, unspecified site Diarrhea 787.91 Resolved [...] cute pharyngitis Nausea 787.02 Active Brii Larson [employer] Nausea alone COLON CANCER ICD-V16.0 Inactive Jose [...] 6 HRS PRN NAUSEA 2014 ONDANSETRON HCL 01856802084 No Longer Active Brii Larson APRN A ctive LOMOTIL 2.5-0.025 MG TAB 1 to 2 four times a day as needed f or diarrhea DIPHENOXYLATE-ATROPINE 98309904849 No Longer Active January anguloan Neo CABRERA Active CITRATE OF MAGNESIA ORAL SOLN 1 bottle today for constipation 10/07 MAGNESIUM CITRATE 23185175406 Active Brii Larson APRN Act zaid PROMETHAZINE HCL 12.5 MG TABS 1 tablet by mouth every 6 hours as needed for nausea/vomiting PROMETHAZINE HCL 47575008271 Active Me robin Neo PAREKHN Active AMOXICILLIN 500 MG TABS 2 tabs twice a day for 10 days AMOXICILLIN 93156929535 No Longer Active Brii Larson APRN Acti ve NEXPLANON IMPL ETONOGESTREL IMPL 97412125701 Active Rich Rosales MD Active CYCLOBENZAPRINE HCL 10 MG TABS 1/2 - 1 tablet by mouth three times daily as needed for muscle spasm/pain CYCLOBENZAPRINE HCL 75027949409 No Longer Active Arie Casper MD Active LOMOTIL 2.5-0.025 MG TABS 1 to 2 four times a day as needed for diarrhea DIPHENOXYLATE-ATROPINE 22646878872 No Longer Active Fozia Casper MD Active MACROBID 100 MG CAP 1 cap by mouth twice daily NITROFURANTOIN MONOHYD MACRO 20079506930 No Longer Active Arie Casper MD Active ZYRTEC ALLERGY 10 MG CAPS 1 po qd CETIRIZINE HCL 80369027184 No Longer Active Arie Casper MD Active AZITHROMYCIN 250 MG TABS 2 po qd x 1 day, then 1 po qd x 4 days AZITHROMYCIN 92582588052 No Longer Active Jikaruna Heaton APRN Active PREDNISONE 20 MG TAB 2 tabs daily for 3 days, 1 t ab daily for 3 days, 1/2 tab daily for 2 days PREDNISONE 19729910970 No Longer Active Waynellina Florina [employer] Active PROMETHAZINE HCL 25 MG TABS 1 four times a day as needed for vomiting PROMETHAZINE HCL 55348532729 No Longer Active Myrna Roberto MD Active BACTRIM DS 800-160 MG TABS 1 twice a day SULFAMETHOXAZOLE-TRIMETHOPRIM 11064969956 No Longer Active Myrna Roberto MD Active VICKS DAYQUIL SEVERE COLD/FLU TABS 1 tab every 6 hours prn 12/10 [id number] TABS 64086607837 No Longer Active Myrna leigh MD Active GUAIFENESIN-CODEINE 100-10 MG/5ML ORAL SYRP 2 tsp every 6 hours prn GUAIFENESIN-CODEINE 63730544744 No Longer Active Myrna Roberto MD Active NAPROXEN 500 MG TAB one tab PO BID NAPROXEN 332 89642620 No Longer Active Myrna Roberto MD Active AUGMENTIN 875-125 MG TAB 1 tab by mouth twice daily with food 08/12/16 AMOXICILLIN-POT CLAVULANATE 91342763534 No Longer Active Liliana Estrada MD PhD Active AMOXICILLIN 500 MG CAP 1 tab by mouth 3 times daily 08/12/16 AMOXICILLIN 26987414098 No Longer Active Liliana Estrada MD PhD Acti ve TESSALON PERLES 100 MG CAP 1 tablet by mouth 3 times daily 11/01 BENZONATATE 10166157888 No Longer Active Liliana Estrada MD PhD Active FLAGYL 500 MG TAB 1 tablet by mouth two times daily 20 07/11/29 METRONIDAZOLE 51812039498 No Longer Active Nilam Weber Active ZITHROMAX 250 MG TAB 2 po today, then 1 po q days 2-5 AZITHROMYCIN 18680324617 No Longer Active Arie Casper MD Acti ve VITAMINS 0.8 MG TABS take 1 tab po qday 08/08 [id number] 04216813506 No Longer Active Arie Casper MD Active IBUPROFEN 800 MG TABS take one po Q 8 hours IBU PROFEN 84532717946 No Longer Active Arie Casper MD Active [facility] TUSSIN COUGH/COLD CF 5-10-100 MG/5ML LIQD 2 teaspoons ev eliud 4 hours [id number] 64110669657 No Longer Active Blaine Casper MD Active COMTREX COLD/COUGH DAY/NITE MS 5-2-10-325 MG MISC 2 caps deja ry 4 hours [id number] 64012737934 No Longer Active Da aleksandra Casper MD Active CHLORASEPTIC MAX SORE THROAT 15-10 MG LOZG 1 every 2 hours prn 2 BENZOCAINE-MENTHOL 94530516469 No Longer Active Arie Marcelo Active PREDNISONE 20 MG TAB 2 tabs daily for 3 days, 1 t ab daily for 3 days, 1/2 tab daily for 2 days PREDNISONE 35017578611 No Longer Active Jose Zhong MD Active AZITHROMYCIN 250 MG TABS 2 po qd x 1 day, then 1 po qd x 4 days AZITHROMYCIN 73692934118 No Longer Active Jose Zhong MD Active ZOFRAN ODT 4 MG TBDP 1 po q6hr PRN Nausea ONDAN SETRON 25113594063 No Longer Active Rich Rosales MD Active ZOFRAN 4 MG TABS 1 tablet every 4 hours ONDANSE JERRELL HCL 89572974688 No Longer Active Rich Rosales MD Active MUCINEX 600 MG [id number] Take 1-2 tablets every 12 hours GUAIFENESIN 93275038435 No Longer Active Rich Rosales MD Activ e BACTRIM 400-80 MG TABS take one po BID SULFAMETHOXAZOLE-TRIMETHOPRIM 17753146755 No Longer Active Abelardo HERNANDEZ Active AZITHROMYCIN 500 MG TABS 1 PO q day x 6 days AZ ITHROMYCIN 18486671936 No Longer Active Tin HERNANDEZ Active ZITHROMAX 250 MG TAB 2 po today, then 1 po q days 2-5 AZITHROMYCIN 17238517814 No Longer Active Arie Casper MD Acti ve ZITHROMAX 250 MG TAB 2 po today, then 1 po q days 2-5 AZITHROMYCIN 80059450991 No Longer Active Arie Casper MD Acti ve AMOXICILLIN 500 MG CAP 1 tab by mouth 3 times daily 09/23/20 AMOXICILLIN 04087928763 No Longer Active Arie Casper MD Acti ve BACTRIM DS 800-160 MG TAB 1 tab by mouth twice daily 2 TRIMETHOPRIM-SULFAMETHOXAZOLE 46987589743 No Longer Active Arie Casper MD Active AMOXICILLIN 500 MG TABS take 1 tab po TID AMOXI CILLIN 13661306217 No Longer Active Arie Casper MD Active BACTRIM DS 800-160 MG TAB 1 tab by mouth twice daily 2 BACTRIM DS 800-160 MG TAB 350547 TRIMETHOPRIM-SULFAMETHOXAZOLE Inac tive MUCINEX 600 MG [id number] Take 1-2 tablets every 12 hours MUCINEX 600 MG [id number] GUAIFENESIN Inactive ZOFRAN 4 MG TABS 1 tablet every 4 hours ZOFRAN 4 MG TABS 269474 ONDANSETRON HCL Inactive ZOFRAN ODT 4 MG TBDP 1 po q6hr PRN Nausea ZOFRAN ODT 4 MG TBDP 627677 ONDANSETRON Inactive CHLORASEPTIC MAX SORE THROAT 15-10 MG LOZG 1 every 2 hours prn 2 /04/30 CHLORASEPTIC MAX SORE THROAT 15-10 MG LOZG BENZO ARINA-MENTHOL Inactive COMTREX COLD/COUGH DAY/NITE MS 5-2-10-325 MG MISC 2 caps deja ry 4 hours COMTREX COLD/COUGH DAY/NITE MS 5-2-10-325 MG MIS C [id number] Inactive [facility] TUSSIN COUGH/COLD CF 5-10-100 MG/5ML LIQD 2 teaspoons ev eliud 4 hours [facility] TUSSIN COUGH/COLD CF 5-10-100 MG/5ML LIQD [id number] Inactive IBUPROFEN 800 MG TABS take one po Q 8 hours IBUPROFEN 800 MG TABS IBUPROFEN Inactive VITAMINS 0.8 MG TABS take 1 tab po qday 08/08 VITAMINS 0.8 MG TABS [id number] Inactive TESSALON PERLES 100 MG CAP 1 tablet by mouth 3 times daily 11/01 TESSALON PERLES 100 MG CAP 743311 BENZONATATE Inact zaid AMOXICILLIN 500 MG CAP 1 tab by mouth 3 times daily 08/12/16 AMOXICILLIN 500 MG CAP 653607 AMOXICILLIN Inactive GUAIFENESIN-CODEINE 100-10 MG/5ML ORAL SYRP 2 tsp every 6 hours prn GUAIFENESIN-CODEINE 100-10 MG/5ML ORAL SYRP 353826 GUAIFENESIN-CODEINE Inactive VICKS DAYQUIL SEVERE COLD/FLU TABS 1 tab every 6 hours prn 12/10 VICKS DAYQUIL SEVERE COLD/FLU TABS PHENYLEPHRINE -DM-GG-APAP TABS Inactive BACTRIM DS 800-160 MG TABS 1 twice a day BACTRIM DS 800- 160 MG TABS 288275 SULFAMETHOXAZOLE-TRIMETHOPRIM Inactive PROMETHAZINE HCL 25 MG TABS 1 four times a day as needed for vomiting PROMETHAZINE HCL 25 MG TABS 423429 PROMETHAZINE HCL Inactive ZYRTEC ALLERGY 10 MG CAPS 1 po qd ZY RTEC ALLERGY 10 MG CAPS CETIRIZINE HCL Inactive MACROBID 100 MG CAP 1 cap by mouth twice daily MACROBID 100 MG CAP 7823449 NITROFURANTOIN MONOHYD MACRO Inactive LOMOTIL 2.5-0.025 MG TABS 1 to 2 four times a day as needed for diarrhea LOMOTIL 2.5-0.025 MG TABS 3358895 DIPHENOXYLATE-A TROPINE Inactive CYCLOBENZAPRINE HCL 10 MG TABS 1/2 - 1 tablet by mouth three times daily as needed for muscle spasm/pain CYCLOBENZAP RINE HCL 10 MG TABS 790259 CYCLOBENZAPRINE HCL Inactive AMOXICILLIN 500 MG TABS 2 tabs twice a day for 10 days AMOXICILLIN 500 MG TABS 207951 AMOXICILLIN Inactive LOMOTIL 2.5-0.025 MG TAB 1 to 2 four times a day as needed f or diarrhea LOMOTIL 2.5-0.025 MG TAB 4379097 DIPHENOXYLATE-AT ROPINE Inactive ZOFRAN 4 MG ORAL TABS 1 TAB PO Q 6 HRS PRN NAUSEA 2014 ZOFRAN 4 MG ORAL TABS 020582 ONDANSETRON HCL Inactive AMOXICILLIN 500 MG TABS take 1 tab po TID AMOXICILLIN 500 MG TABS 385089 AMOXICILLIN Inactive AMOXICILLIN 500 MG CAP 1 tab by mouth 3 times daily 09/23/20 AMOXICILLIN 500 MG CAP 313198 AMOXICILLIN Inactive ZITHROMAX 250 MG TAB 2 po today, then 1 po q days 2-5 ZITHROMAX 250 MG TAB 5337780 AZITHROMYCIN Inactive ZITHROMAX 250 MG TAB 2 po today, then 1 po q days 2-5 ZITHROMAX 250 MG TAB 3266913 AZITHROMYCIN Inactive AZITHROMYCIN 500 MG TABS 1 PO q day x 6 days 3 AZITHROMYCIN 500 MG TABS 6451422 AZITHROMYCIN Inactive BACTRIM 400-80 MG TABS take one po BID BA CTRIM 400-80 MG TABS 886110 SULFAMETHOXAZOLE-TRIMETHOPRIM Inactive AZITHROMYCIN 250 MG TABS 2 po qd x 1 day, then 1 po qd x 4 days AZITHROMYCIN 250 MG TABS 1137303 AZITHROMYCIN Inactiv e PREDNISONE 20 MG TAB 2 tabs daily for 3 days, 1 t ab daily for 3 days, 1/2 tab daily for 2 days PREDNISONE 20 MG TAB 429646 PREDNISON E Inactive ZITHROMAX 250 MG TAB 2 po today, then 1 po q days 2-5 ZITHROMAX 250 MG TAB 2915305 AZITHROMYCIN Inactive FLAGYL 500 MG TAB 1 tablet by mouth two times daily 07/11/29 FLAGYL 500 MG TAB 432671 METRONIDAZOLE Inactive AUGMENTIN 875-125 MG TAB 1 tab by mouth twice daily with food 08/12/16 AUGMENTIN 875-125 MG TAB 394868 AMOXICILLIN-POT CLAVULA ANGELO Inactive NAPROXEN 500 MG TAB one tab PO BID NAPROXEN 500 MG TAB 518150 NAPROXEN Inactive PREDNISONE 20 MG TAB 2 tabs daily for 3 days, 1 t ab daily for 3 days, 1/2 tab daily for 2 days PREDNISONE 20 MG TAB 177674 PREDNISON E Inactive AZITHROMYCIN 250 MG TABS 2 po qd x 1 day, then 1 po qd x 4 days AZITHROMYCIN 250 MG TABS 6558851 AZITHROMYCIN Inactiv e Advance Directives Directive Description [...] leukocyte count, blood 10.1 10^3/MM^3 10*3/mm3 4.6-10.2 mean corpuscular hemoglobin concentration, RBC 33.4 G/DL % 31.8-35.4 red blood cell distribution width 13.9 % 11 .6-14.8 platelet count 277 10^3/MM^3 10*3/mm3 225-140 5286/09/16 erythrocyte (RBC) count 4.69 10^6/MM^3 10*6/mm3 4.04-5.4 8 hemoglobin, blood 12.9 g/dL 12.0-16.0 hematocrit, blood 38.7 % 36.0-46.0 mean corpuscular volume, RBC 83 fL 80-97 mean corpuscular hemoglobin, RBC 27.6 pg 27. 0-31.2 Lab Report: CBC W/DIFF - Hematology leukocyte [...] 11 .6-14.8 platelet count 276 10^3/MM^3 10*3/mm3 252-523 0689/01/08 erythrocyte (RBC) count 4.92 10^6/MM^3 10*6/mm3 4.04-5.4 8 hemoglobin, blood 13.5 g/dL 12.0-16.0 hematocrit, blood 40.7 % 36.0-46.0 mean corpuscular volume, RBC 83 fL 80-97 mean corpuscular hemoglobin, RBC 27.5 pg 27. 0-31.2 mean corpuscular hemoglobin concentration, RBC 33.2 G/DL % 31.8-35.4 red blood cell distribution width 13.5 % 11 .6-14.8 platelet count 214 10^3/MM^3 10*3/mm3 016-027 2769/01/08 lymphocytes as percent of blood leukocytes 28.4 % 20.5-51.1 monocytes as percent of blood leukocytes 12.7 % 1.7-9.3 neutrophils as percent of blood leukocytes 54.8 % 42.2-75.2 leukocyte count, blood 4.4 10^3/MM^3 10*3/mm3 4.6-10.2 Lab Report: Chlamydia/GC APTIMA/[id number] - Lab chlamydia DNA probe NOT DETECTED NOT DETECTED Lab Report: Chlamydia/GC APTIMA/[id number] - Microbiology Neisseria gonorrhoeae DNA probe NOT DETECTED NO T DETECTED Lab Report: Comp. Metabolic Panel - Chem istry sodium, serum 139 mmol/L 454-397 7169/12/15 carbon dioxide, venous blood 30.2 mmol/L 21.0-32 .0 potassium, serum 3.4 mmol/L 3.5-5.2 chloride, serum 101 mmol/L 98-107 blood glucose 92 mg/dL 65-110 urea nitrogen, blood 5 mg/dL 7-18 creatinine, serum 0.81 mg/dL 0.55-1.30 alanine aminotransferase (SGPT), serum 20 U/L 12-78 aspartate aminotransferase (SGOT), serum 10 U/L 15-37 calcium, serum 8.4 mg/dL 8.5-10.1 bilirubin, serum, total 0.60 mg/dL 0.00-1.00 Lab Report: HIV-1/2 Agn/Darcy/58761, HEPAT ITIS PANEL, ACUTE W/REFLE - Chemistry [...] Clear Clear specific gravity, urine 1.020 1.000-1.030 specific gravity, urine 1.025 1.000-1.030 pH, urine, semiquantitative 6.5 5.0-8.5 urobilinogen, [...] Neg ative pH, urine, semiquantitative 5.5 5.0-8.5 urine color Yellow Colorless;Lightyellow;St raw;Yellow appearance, urine Clear Clear urine color Yellow Colorless;Lightyellow;St raw;Yellow glucose, urine, semiquantitative Negative Neg ative ketones, urine, by test strip Trace Negati ve bilirubin, urine Negative Negative glucose, urine, semiquantitative Negative Neg ative ketones, urine, by test strip Negative Negati ve bilirubin, urine Negative Negative Encounters Code Encounter Date Provider Facility CPT-98476 Level 3 Est. Patient 09:52:36 PEDIATRICIAN Steve CABRERA [facility] CPT-66352 Level 3 Est. Patient 16:25:33 PEDIATRICIAN Rich Rosales MD [facility] CPT-64658 Level 3 Est. Patient 20:33:55 CDT Arie mcqueen MD [facility] CPT-57289 Level 3 Est. Patient 14:18:20 CDT Rich Rosales MD [facility] CPT-64943 Level 4 Est. Patient 09:34:31 CDT Arie mcqueen MD [facility] CPT-51169 Level 3 Est. Patient 09:08:55 PEDIATRICIAN Liliana vincent MD PhD [facility] CPT-27301 Level 3 Est. Patient 16:44:07 PEDIATRICIAN Arie mcqueen MD [facility] CPT-83924 Level 3 Est. Patient 10:44:27 CDT Arie mcqueen MD [facility] CPT-08667 Level 3 Est. Patient 08:55:41 CDT Jose Zhong MD [facility] CPT-52975 Level 3 Est. Patient 18:37:31 CDT Liliana vincent MD PhD [facility] CPT-77234 Level 3 Est. Patient 14:28:23 CDT Abelardo HERNANDEZ [facility] CPT-66787 Level 3 Est. Patient 15:18:13 PEDIATRICIAN Arie mcqueen MD [facility] CPT-43928 Level 3 Est. Patient 10:11:29 PEDIATRICIAN Arie mcqueen MD [facility] CPT-23906 Level 3 Est. Patient 10:55:57 PEDIATRICIAN Jono black DO [facility] CPT-36545 Level 3 Est. Patient 17:29:05 CDT Arie mcqueen MD [facility] Procedures Code Procedure Name Date Entry Date Standard Desc ription CPT-07079 Abd compl w upright 09:07:26 PEDIATRICIAN CPT-65873 Ear Wash 16:12:47 PEDIATRICIAN CPT-OV Office Visit 11:12:01 CDT CPT-OV Office Visit 15:30:23 CDT CPT-19539 Sono pelvis non OB uterus ovaries cervix 15:50:44 CDT CPT-91847 Hand comp min 3V 16:42:32 CDT CPT-37585 Abd compl w upright 12:17:01 CDT CPT-56705 Nexplanon Placement 15:07:39 PEDIATRICIAN CPT-45986 Removal of IUD 15:07:39 PEDIATRICIAN CPT-59215 TB Tubersol 12:09:32 CDT CPT-16003 TB Tubersol 13:55:43 CDT
--- OUTSIDE RECORDS SUMMARY | 2020-03-03 08:03 | XMS REPORT | Clinical Summary ---
Author Author Admin, Diamante Marcelo Organization [facility] Address Unknown Phone Unavailable Allergies, Adverse Reactions, [...] cute pharyngitis Nausea 787.02 Active Brii Larson POWER TECHNICIAN Nausea alone URI 465.9 Active Jono [...] 1 po q a.m. PANTOPRAZO LE SODIUM 26814114653 Active Brii Larson APRN Active PREDNISONE 20 MG TAB 2 tabs daily for 3 days, 1 t ab daily for 3 days, 1/2 tab daily for 2 days PREDNISONE 52301306490 No Longer Active Brii Larson APRN Active PREDNISONE 20 MG TAB 1 tablet twice daily for 2 d ays, then 1 tablet once daily for 2 days PREDNISONE 56868428253 No Longer Active Brii Larson APRN Active FLONASE 50 MCG/ACT SUSP 1 spray each nostril twice d aily for allergies and runny nose until gone FLUTICASONE PROPIONATE Active Jono Gagnon DO Active PROMETHAZINE HCL 12.5 MG TABS 1 tablet by mouth every 6 hours as needed for nausea/vomiting PROMETHAZINE HCL 16712011572 No Longe r Active Jono Gagnon DO Active CITRATE OF MAGNESIA ORAL SOLN 1 bottle today for constipation 20 07/10/15 MAGNESIUM CITRATE 60016455789 No Longer Active Jono Gagnon DO Active ZOFRAN 4 MG ORAL TABS 1 TAB PO Q 6 HRS PRN NAUSEA 2014 ONDANSETRON HCL 58182070039 No Longer Active Brii Larson APRN A ctive LOMOTIL 2.5-0.025 MG TAB 1 to 2 four times a day as needed f or diarrhea DIPHENOXYLATE-ATROPINE 33522737506 No Longer Active January anguloan Neo CABRERA Active AMOXICILLIN 500 MG TABS 2 tabs twice a day for 10 days AMOXICILLIN 24885229067 No Longer Active Brii Larson APRN Acti ve NEXPLANON IMPL ETONOGESTREL IMPL 47247300271 Active Rich Rosales MD Active CYCLOBENZAPRINE HCL 10 MG TABS 1/2 - 1 tablet by mouth three times daily as needed for muscle spasm/pain CYCLOBENZAPRINE HCL 28280970029 No Longer Active Arie Casper MD Active LOMOTIL 2.5-0.025 MG TABS 1 to 2 four times a day as needed for diarrhea DIPHENOXYLATE-ATROPINE 26064362644 No Longer Active D freddy Casper MD Active MACROBID 100 MG CAP 1 cap by mouth twice daily NITROFURANTOIN MONOHYD MACRO 27777162134 No Longer Active Arie Casper MD Active ZYRTEC ALLERGY 10 MG CAPS 1 po qd CETIRIZINE HCL 61185175217 No Longer Active Arie Casper MD Active AZITHROMYCIN 250 MG TABS 2 po qd x 1 day, then 1 po qd x 4 days AZITHROMYCIN 29796470705 No Longer Active Jillina Frazelanette CABRERA Active PREDNISONE 20 MG TAB 2 tabs daily for 3 days, 1 t ab daily for 3 days, 1/2 tab daily for 2 days PREDNISONE 82655513033 No Longer Active Jillina Frazell POWER TECHNICIAN Active PROMETHAZINE HCL 25 MG TABS 1 four times a day as needed for vomiting PROMETHAZINE HCL 96862342580 No Longer Active Myrna Roberto MD Active BACTRIM DS 800-160 MG TABS 1 twice a day SULFAMETHOXAZOLE-TRIMETHOPRIM 64671765629 No Longer Active Myrna Roberto MD Active VICKS DAYQUIL SEVERE COLD/FLU TABS 1 tab every 6 hours prn 12/10 UAWHSSFUVJHEU-HC-PH-APAP TABS 75894298074 No Longer Active Myrna leigh MD Active GUAIFENESIN-CODEINE 100-10 MG/5ML ORAL SYRP 2 tsp every 6 hours prn GUAIFENESIN-CODEINE 71975578839 No Longer Active Myrna Roberto MD Active NAPROXEN 500 MG TAB one tab PO BID NAPROXEN 332 52552618 No Longer Active Myrna Roberto MD Active AUGMENTIN 875-125 MG TAB 1 tab by mouth twice daily with food 08/12/16 AMOXICILLIN-POT CLAVULANATE 32071202031 No Longer Active Liliana Estrada MD PhD Active AMOXICILLIN 500 MG CAP 1 tab by mouth 3 times daily 08/12/16 AMOXICILLIN 69604770936 No Longer Active Liliana Estrada MD PhD Acti ve TESSALON PERLES 100 MG CAP 1 tablet by mouth 3 times daily 11/01 BENZONATATE 59002930938 No Longer Active Liliana Estrada MD PhD Active FLAGYL 500 MG TAB 1 tablet by mouth two times daily 07/11/29 METRONIDAZOLE 18715468346 No Longer Active Nilam Rakatie Active ZITHROMAX 250 MG TAB 2 po today, then 1 po q days 2-5 AZITHROMYCIN 48079949801 No Longer Active Arie Casper MD Acti ve VITAMINS 0.8 MG TABS take 1 tab po qday 08/08 [id number]-[id number]-FA 54929482666 No Longer Active Arie Casper MD Active IBUPROFEN 800 MG TABS take one po Q 8 hours IBU PROFEN 17313960200 No Longer Active Arie Casper MD Active [facility] TUSSIN COUGH/COLD CF 5-10-100 MG/5ML LIQD 2 teaspoons ev eliud 4 hours [id number]-DF-[id number] 77498713369 No Longer Active Blaine Casper MD Active COMTREX COLD/COUGH DAY/NITE MS 5-2-10-325 MG MISC 2 caps deja ry 4 hours [id number]-[id number]-CL-APAP 70541615794 No Longer Active Da aleksandra Casper MD Active CHLORASEPTIC MAX SORE THROAT 15-10 MG LOZG 1 every 2 hours prn 2 BENZOCAINE-MENTHOL 97520661341 No Longer Active Arie Marcelo Active PREDNISONE 20 MG TAB 2 tabs daily for 3 days, 1 t ab daily for 3 days, 1/2 tab daily for 2 days PREDNISONE 55179854954 No Longer Active Jose Zhong MD Active AZITHROMYCIN 250 MG TABS 2 po qd x 1 day, then 1 po qd x 4 days AZITHROMYCIN 25330448510 No Longer Active Jose Zhong MD Active ZOFRAN ODT 4 MG TBDP 1 po q6hr PRN Nausea ONDAN SETRON 68035997373 No Longer Active Rich Rosales MD Active ZOFRAN 4 MG TABS 1 tablet every 4 hours ONDANSE JERRELL HCL 12279485027 No Longer Active Rich Rosales MD Active MUCINEX 600 MG [id number]-PXY Take 1-2 tablets every 12 hours GUAIFENESIN 06844485612 No Longer Active Rich Rosales MD Activ e BACTRIM 400-80 MG TABS take one po BID SULFAMETHOXAZOLE-TRIMETHOPRIM 34248663216 No Longer Active Abelardo HERNANDEZ Active AZITHROMYCIN 500 MG TABS 1 PO q day x 6 days AZ ITHROMYCIN 10576035707 No Longer Active Tin HERNANDEZ Active ZITHROMAX 250 MG TAB 2 po today, then 1 po q days 2-5 AZITHROMYCIN 68543212120 No Longer Active Arie Casper MD Acti ve ZITHROMAX 250 MG TAB 2 po today, then 1 po q days 2-5 AZITHROMYCIN 00674492680 No Longer Active Arie Casper MD Acti ve AMOXICILLIN 500 MG CAP 1 tab by mouth 3 times daily 20 09/23/20 AMOXICILLIN 99929771863 No Longer Active Arie Casper MD Acti ve BACTRIM DS 800-160 MG TAB 1 tab by mouth twice daily 2 TRIMETHOPRIM-SULFAMETHOXAZOLE 42258269483 No Longer Active Arie Casper MD Active AMOXICILLIN 500 MG TABS take 1 tab po TID AMOXI CILLIN 84428602639 No Longer Active Arie Casper MD Active BACTRIM DS 800-160 MG TAB 1 tab by mouth twice daily 2 BACTRIM DS 800-160 MG TAB 525441 TRIMETHOPRIM-SULFAMETHOXAZOLE Inac tive MUCINEX 600 MG [id number] Take 1-2 tablets every 12 hours MUCINEX 600 MG [id number] GUAIFENESIN Inactive ZOFRAN 4 MG TABS 1 tablet every 4 hours ZOFRAN 4 MG TABS 031164 ONDANSETRON HCL Inactive ZOFRAN ODT 4 MG TBDP 1 po q6hr PRN Nausea ZOFRAN ODT 4 MG TBDP 202593 ONDANSETRON Inactive CHLORASEPTIC MAX SORE THROAT 15-10 MG LOZG 1 every 2 hours prn 2 /04/30 CHLORASEPTIC MAX SORE THROAT 15-10 MG LOZG BENZO ARINA-MENTHOL Inactive COMTREX COLD/COUGH DAY/NITE MS 5-2-10-325 MG MISC 2 caps deja ry 4 hours COMTREX COLD/COUGH DAY/NITE MS 5-2-10-325 MG MIS C [id number]-VB-APAP Inactive [facility] TUSSIN COUGH/COLD CF 5-10-100 MG/5ML LIQD 2 teaspoons ev eliud 4 hours [facility] TUSSIN COUGH/COLD CF 5-10-100 MG/5ML LIQD [id number]-PA Inactive IBUPROFEN 800 MG TABS take one po Q 8 hours IBUPROFEN 800 MG TABS 738170 IBUPROFEN Inactive VITAMINS 0.8 MG TABS take 1 tab po qday 08/08 VITAMINS 0.8 MG TABS [id number]-FA Inactive TESSALON PERLES 100 MG CAP 1 tablet by mouth 3 times daily 11/01 TESSALON PERLES 100 MG CAP 383213 BENZONATATE Inact zaid AMOXICILLIN 500 MG CAP 1 tab by mouth 3 times daily 08/12/16 AMOXICILLIN 500 MG CAP 409483 AMOXICILLIN Inactive GUAIFENESIN-CODEINE 100-10 MG/5ML ORAL SYRP 2 tsp every 6 hours prn GUAIFENESIN-CODEINE 100-10 MG/5ML ORAL SYRP 120904 GUAIFENESIN-CODEINE Inactive VICKS DAYQUIL SEVERE COLD/FLU TABS 1 tab every 6 hours prn 12/10 VICKS DAYQUIL SEVERE COLD/FLU TABS PHENYLEPHRINE -DM-GG-APAP TABS Inactive BACTRIM DS 800-160 MG TABS 1 twice a day BACTRIM DS 800- 160 MG TABS 841460 SULFAMETHOXAZOLE-TRIMETHOPRIM Inactive PROMETHAZINE HCL 25 MG TABS 1 four times a day as needed for vomiting PROMETHAZINE HCL 25 MG TABS 295821 PROMETHAZINE HCL Inactive ZYRTEC ALLERGY 10 MG CAPS 1 po qd ZY RTEC ALLERGY 10 MG CAPS CETIRIZINE HCL Inactive MACROBID 100 MG CAP 1 cap by mouth twice daily MACROBID 100 MG CAP 1038856 NITROFURANTOIN MONOHYD MACRO Inactive LOMOTIL 2.5-0.025 MG TABS 1 to 2 four times a day as needed for diarrhea LOMOTIL 2.5-0.025 MG TABS 8258318 DIPHENOXYLATE-A TROPINE Inactive CYCLOBENZAPRINE HCL 10 MG TABS 1/2 - 1 tablet by mouth three times daily as needed for muscle spasm/pain CYCLOBENZAP RINE HCL 10 MG TABS 024179 CYCLOBENZAPRINE HCL Inactive AMOXICILLIN 500 MG TABS 2 tabs twice a day for 10 days AMOXICILLIN 500 MG TABS 549149 AMOXICILLIN Inactive LOMOTIL 2.5-0.025 MG TAB 1 to 2 four times a day as needed f or diarrhea LOMOTIL 2.5-0.025 MG TAB 2930912 DIPHENOXYLATE-AT ROPINE Inactive ZOFRAN 4 MG ORAL TABS 1 TAB PO Q 6 HRS PRN NAUSEA 2014 ZOFRAN 4 MG ORAL TABS 840683 ONDANSETRON HCL Inactive CITRATE OF MAGNESIA ORAL SOLN 1 bottle today for constipation 20 07/10/15 CITRATE OF MAGNESIA ORAL SOLN 0772953 MAGNESIUM CITRATE Inactive PROMETHAZINE HCL 12.5 MG TABS 1 tablet by mouth every 6 hours as needed for nausea/vomiting PROMETHAZINE HCL 12.5 MG TABS 042943 PROMETHAZINE HCL Inactive PREDNISONE 20 MG TAB 1 tablet twice daily for 2 d ays, then 1 tablet once daily for 2 days PREDNISONE 20 MG TAB 708625 PREDNISONE Inac tive AMOXICILLIN 500 MG TABS take 1 tab po TID AMOXICILLIN 500 MG TABS 425976 AMOXICILLIN Inactive AMOXICILLIN 500 MG CAP 1 tab by mouth 3 times daily 09/23/20 AMOXICILLIN 500 MG CAP 554702 AMOXICILLIN Inactive ZITHROMAX 250 MG TAB 2 po today, then 1 po q days 2-5 ZITHROMAX 250 MG TAB 3192893 AZITHROMYCIN Inactive ZITHROMAX 250 MG TAB 2 po today, then 1 po q days 2-5 ZITHROMAX 250 MG TAB 7917834 AZITHROMYCIN Inactive AZITHROMYCIN 500 MG TABS 1 PO q day x 6 days 3 AZITHROMYCIN 500 MG TABS 7218223 AZITHROMYCIN Inactive BACTRIM 400-80 MG TABS take one po BID BA CTRIM 400-80 MG TABS 138886 SULFAMETHOXAZOLE-TRIMETHOPRIM Inactive AZITHROMYCIN 250 MG TABS 2 po qd x 1 day, then 1 po qd x 4 days AZITHROMYCIN 250 MG TABS 0238150 AZITHROMYCIN Inactiv e PREDNISONE 20 MG TAB 2 tabs daily for 3 days, 1 t ab daily for 3 days, 1/2 tab daily for 2 days PREDNISONE 20 MG TAB 555305 PREDNISON E Inactive ZITHROMAX 250 MG TAB 2 po today, then 1 po q days 2-5 ZITHROMAX 250 MG TAB 2133563 AZITHROMYCIN Inactive FLAGYL 500 MG TAB 1 tablet by mouth two times daily 07/11/29 FLAGYL 500 MG TAB 709319 METRONIDAZOLE Inactive AUGMENTIN 875-125 MG TAB 1 tab by mouth twice daily with food 20 08/12/16 AUGMENTIN 875-125 MG TAB 520623 AMOXICILLIN-POT CLAVULA ANGELO Inactive NAPROXEN 500 MG TAB one tab PO BID NAPROXEN 500 MG TAB 742154 NAPROXEN Inactive PREDNISONE 20 MG TAB 2 tabs daily for 3 days, 1 t ab daily for 3 days, 1/2 tab daily for 2 days PREDNISONE 20 MG TAB 248163 PREDNISON E Inactive AZITHROMYCIN 250 MG TABS 2 po qd x 1 day, then 1 po qd x 4 days AZITHROMYCIN 250 MG TABS 3323434 AZITHROMYCIN Inactiv e PREDNISONE 20 MG TAB 2 tabs daily for 3 days, 1 t ab daily for 3 days, 1/2 tab daily for 2 days PREDNISONE 20 MG TAB 342990 PREDNISON E Inactive Advance Directives Directive Description [...] pressure, diastolic - 8462-4 82 mm[Hg] BP kenneyd blood pressure, systolic - 8480-6 115 mm[Hg] [...] Panel - Chemistry sodium, serum 136 mmol/L 479-751 9105/04/26 carbon dioxide, venous blood 29.9 mmol/L 21.0-32 [...] 284 10^3/MM^3 10*3/mm3 142-424 Lab Report: Chlamydia/GC APTIMA/02067 - Lab chlamydia DNA probe NOT DETECTED NOT DETECTED Lab Report: Chlamydia/GC APTIMA/80898 - Microbiology Neisseria gonorrhoeae DNA probe NOT DETECTED NO T DETECTED Lab Report: Comp. Metabolic Panel - Chem istry sodium, serum 139 mmol/L 280-185 4054/12/15 carbon dioxide, venous blood 30.2 mmol/L 21.0-32 .0 potassium, serum 3.4 mmol/L 3.5-5.2 chloride, serum 101 mmol/L 98-107 blood glucose 92 mg/dL 65-110 urea nitrogen, blood 5 mg/dL 7-18 creatinine, serum 0.81 mg/dL 0.55-1.30 alanine aminotransferase (SGPT), serum 20 U/L 12-78 aspartate aminotransferase (SGOT), serum 10 U/L 15-37 calcium, serum 8.4 mg/dL 8.5-10.1 bilirubin, serum, total 0.60 mg/dL 0.00-1.00 Lab Report: HIV-1/2 Agn/Darcy/73492, HEPAT ITIS PANEL, ACUTE W/REFLE - Chemistry [...] Negative Encounters Code Encounter Date Provider Facility CPT-73711 Level 3 Est. Patient 16:40:54 CDT Jose Zhong MD [facility] CPT-97148 Level 2 Est. Patient 13:01:13 CDT [facility] CPT-92867 Level 3 Est. 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 Patient 09:52:36 [employer] UP WORKER Steve POWER TECHNICIAN [facility] CPT-42397 Level 3 Est. Patient 16:25:33 [employer]RE[employer] WORKER Rich Rosales MD [facility] CPT-13695 Level 3 Est. Patient 20:33:55 CDT Arie mcqueen MD [facility] CPT-27562 Level 3 Est. Patient 14:18:20 CDT Rich Rosales MD [facility] CPT-21979 Level 4 Est. Patient 09:34:31 CDT Arie mcqueen MD [facility] CPT-45687 Level 3 Est. Patient 09:08:55 [employer] UP WORKER Liliana vincent MD PhD [facility] CPT-96464 Level 3 Est. Patient 16:44:07 [employer]REGL[employer] LAY UP WORKER Arie mcqueen MD [facility] CPT-11770 Level 3 Est. Patient 10:44:27 CDT Arie mcqueen MD [facility] CPT-02427 Level 3 Est. Patient 08:55:41 CDT Jose Zhong MD [facility] CPT-41059 Level 3 Est. Patient 18:37:31 CDT Liliana vincent MD PhD [facility] CPT-24209 Level 3 Est. Patient 14:28:23 CDT Abelardo HERNANDEZ [facility] CPT-99989 Level 3 Est. Patient 15:18:13 [employer]RE[employer] UP WORKER Arie mcqueen MD [facility] CPT-82705 Level 3 Est. Patient 10:11:29 [employer]RE[employer] LAY UP WORKER Arie mcqueen MD [facility] CPT-70810 Level 3 Est. Patient 10:55:57 [employer] UP WORKER Jono black DO [facility] CPT-24008 Level 3 Est. Patient 17:29:05 CDT Arie mcqueen MD [facility] Procedures Code Procedure Name Date Entry Date Standard Desc ription CPT-42247 Abd compl w upright 09:07:26 [employer]RE[employer] WORKER CPT-25185 Ear Wash 16:12:47 [employer] WORKER CPT-OV Office Visit 11:12:01 CDT CPT-OV Office Visit 15:30:23 CDT CPT-73583 Sono pelvis non OB uterus ovaries cervix 15:50:44 CDT CPT-66850 Hand comp min 3V 16:42:32 CDT CPT-08226 Abd compl w upright 12:17:01 CDT CPT-82735 Nexplanon Placement 15:07:39 [employer] WORKER CPT-82957 Removal of IUD 15:07:39 [employer]RE[employer] WORKER CPT-00864 TB Tubersol 12:09:32 CDT CPT-27434 TB Tubersol 13:55:43 CDT
--- OUTSIDE RECORDS SUMMARY | 2020-03-03 08:04 | XMS REPORT | Clinical Summary ---
Author Author Admin, Diamante Marcelo Organization [facility] Address Unknown Phone Unavailable Allergies, [...] Roseann Crawford Accidents caused by hypodermic needle FH BREAST CANCER ICD-V16.3 Inactive Jose Marcelo [...] Jose monreal MD Diarrhea ICD-787.91 Inactive Jose Mareclo Thumb pain, right ICD-729.5 Inactive Jose pelayo [...] TAB one tab PO BID NAPROXEN 332 17195546 No Longer Active Myrna Roberto MD Active LOMOTIL 2.5-0.025 MG TABS 1 to 2 four times a day as needed for diarrhea DIPHENOXYLATE-ATROPINE 58969250136 Active Rich mcintosh MD Active PROMETHAZINE HCL 25 MG TABS 1 four times a day as needed for vomiting PROMETHAZINE HCL 62372181533 Active Rich Rosales MD Active BACTRIM DS 800-160 MG TABS 1 twice a day SULFAMETHOXAZOLE-TRIMETHOPRIM 53447287067 Active Rich Rosales MD Active AUGMENTIN 875-125 MG TAB 1 tab by mouth twice daily with food 20 08/12/16 AMOXICILLIN-POT CLAVULANATE 15467613759 No Longer Active Liliana Estrada MD PhD Active CYCLOBENZAPRINE HCL 10 MG TABS 1/2 - 1 tablet by mouth three times daily as needed for muscle spasm/pain CYCLOBENZAPRINE HCL 58961 623121 Active Liliana Estrada MD PhD Active GUAIFENESIN-CODEINE 100-10 MG/5ML ORAL SYRP 2 tsp every 6 hours prn GUAIFENESIN-CODEINE 62593611734 Active Liliana Estrada MD PhD Active VICKS DAYQUIL SEVERE COLD/FLU TABS 1 tab every 6 hours prn EOLPNHODETHTM-RX-YF-APAP TABS 41721446658 Active Liliana Estrada MD PhD Active AMOXICILLIN 500 MG CAP 1 tab by mouth 3 times daily 08/12/16 AMOXICILLIN 70765784124 No Longer Active Liliana Estrada MD PhD Acti ve TESSALON PERLES 100 MG CAP 1 tablet by mouth 3 times daily 11/01 BENZONATATE 82735008366 No Longer Active Liliana Estrada MD PhD Active FLAGYL 500 MG TAB 1 tablet by mouth two times daily 07/11/29 METRONIDAZOLE 54033464146 No Longer Active Nilam Weber Active ZITHROMAX 250 MG TAB 2 po today, then 1 po q days 2-5 AZITHROMYCIN 16398787898 No Longer Active Arie Casper MD Acti ve VITAMINS 0.8 MG TABS take 1 tab po qday 08/08 [id number]-[id number]-FA 97773778241 No Longer Active Arie Casper MD Active IBUPROFEN 800 MG TABS take one po Q 8 hours IBU PROFEN 35686501371 No Longer Active Arie Casper MD Active [facility] TUSSIN COUGH/COLD CF 5-10-100 MG/5ML LIQD 2 teaspoons ev eliud 4 hours CQBPNVFBPZQVL-CL-HH 02817407997 No Longer Active Blaine Casper MD Active COMTREX COLD/COUGH DAY/NITE MS 5-2-10-325 MG MISC 2 caps deja ry 4 hours FNELLXDPC-FET-WZ-APAP 59536661875 No Longer Active Landon Casper MD Active CHLORASEPTIC MAX SORE THROAT 15-10 MG LOZG 1 every 2 hours prn 2 BENZOCAINE-MENTHOL 06716856048 No Longer Active Arie Marcelo Active PREDNISONE 20 MG TAB 2 tabs daily for 3 days, 1 t ab daily for 3 days, 1/2 tab daily for 2 days PREDNISONE 32875505904 No Longer Active Jose Zhong MD Active AZITHROMYCIN 250 MG TABS 2 po qd x 1 day, then 1 po qd x 4 days AZITHROMYCIN 89141305392 No Longer Active Jose Zhong MD Active ZOFRAN ODT 4 MG TBDP 1 po q6hr PRN Nausea ONDAN SETRON 47319338845 No Longer Active Rich Rosales MD Active ZOFRAN 4 MG TABS 1 tablet every 4 hours ONDANSE JERRELL HCL 42542001627 No Longer Active Rich Rosales MD Active MUCINEX 600 MG [id number] Take 1-2 tablets every 12 hours GUAIFENESIN 40766633164 No Longer Active Rich Rosales MD Activ e BACTRIM 400-80 MG TABS take one po BID SULFAMETHOXAZOLE-TRIMETHOPRIM 60856800560 No Longer Active Abelardo HERNANDEZ Active AZITHROMYCIN 500 MG TABS 1 PO q day x 6 days AZ ITHROMYCIN 81302530433 No Longer Active Tin HERNANDEZ Active ZITHROMAX 250 MG TAB 2 po today, then 1 po q days 2-5 AZITHROMYCIN 42319615028 No Longer Active Arie Casper MD Acti ve ZITHROMAX 250 MG TAB 2 po today, then 1 po q days 2-5 AZITHROMYCIN 83367105791 No Longer Active Arie Casper MD Acti ve AMOXICILLIN 500 MG CAP 1 tab by mouth 3 times daily 20 09/23/20 AMOXICILLIN 42619377500 No Longer Active Arie Casper MD Acti ve BACTRIM DS 800-160 MG TAB 1 tab by mouth twice daily 2 TRIMETHOPRIM-SULFAMETHOXAZOLE 35547832241 No Longer Active Arie Casper MD Active AMOXICILLIN 500 MG TABS take 1 tab po TID AMOXI CILLIN 23865449134 No Longer Active Arie Casper MD Active BACTRIM DS 800-160 MG TAB 1 tab by mouth twice daily 2 BACTRIM DS 800-160 MG TAB TRIMETHOPRIM-SULFAMETHOXAZOLE Inac tive MUCINEX 600 MG [id number]-[id number] Take 1-2 tablets every 12 hours MUCINEX 600 MG [id number]-[id number] GUAIFENESIN Inactive ZOFRAN 4 MG TABS 1 tablet every 4 hours ZOFRAN 4 MG TABS 031212 ONDANSETRON HCL Inactive ZOFRAN ODT 4 MG TBDP 1 po q6hr PRN Nausea ZOFRAN ODT 4 MG TBDP 138552 ONDANSETRON Inactive CHLORASEPTIC MAX SORE THROAT 15-10 MG LOZG 1 every 2 hours prn 2 CHLORASEPTIC MAX SORE THROAT 15-10 MG LOZG BENZO ARINA-MENTHOL Inactive COMTREX COLD/COUGH DAY/NITE MS 5-2-10-325 MG MISC 2 caps deja ry 4 hours COMTREX COLD/COUGH DAY/NITE MS 5-2-10-325 MG MIS C [id number]-APAP Inactive [facility] TUSSIN COUGH/COLD CF 5-10-100 MG/5ML LIQD 2 teaspoons ev eliud 4 hours [facility] TUSSIN COUGH/COLD CF 5-10-100 MG/5ML LIQD [id number]-BF-UW Inactive IBUPROFEN 800 MG TABS take one po Q 8 hours IBUPROFEN 800 MG TABS 605785 IBUPROFEN Inactive VITAMINS 0.8 MG TABS take 1 tab po qday 08/08 VITAMINS 0.8 MG TABS [id number]-RA-FA Inactive TESSALON PERLES 100 MG CAP 1 tablet by mouth 3 times daily 11/01 TESSALON PERLES 100 MG CAP 234253 BENZONATATE Inact zaid AMOXICILLIN 500 MG CAP 1 tab by mouth 3 times daily 08/12/16 AMOXICILLIN 500 MG CAP 663948 AMOXICILLIN Inactive AMOXICILLIN 500 MG TABS take 1 tab po TID AMOXICILLIN 500 MG TABS 021355 AMOXICILLIN Inactive AMOXICILLIN 500 MG CAP 1 tab by mouth 3 times daily 09/23/20 AMOXICILLIN 500 MG CAP 723398 AMOXICILLIN Inactive ZITHROMAX 250 MG TAB 2 po today, then 1 po q days 2-5 ZITHROMAX 250 MG TAB 5076917 AZITHROMYCIN Inactive ZITHROMAX 250 MG TAB 2 po today, then 1 po q days 2-5 ZITHROMAX 250 MG TAB 2136953 AZITHROMYCIN Inactive AZITHROMYCIN 500 MG TABS 1 PO q day x 6 days 3 AZITHROMYCIN 500 MG TABS 1206453 AZITHROMYCIN Inactive BACTRIM 400-80 MG TABS take one po BID BA CTRIM 400-80 MG TABS 783535 SULFAMETHOXAZOLE-TRIMETHOPRIM Inactive AZITHROMYCIN 250 MG TABS 2 po qd x 1 day, then 1 po qd x 4 days AZITHROMYCIN 250 MG TABS 3021134 AZITHROMYCIN Inactiv e PREDNISONE 20 MG TAB 2 tabs daily for 3 days, 1 t ab daily for 3 days, 1/2 tab daily for 2 days PREDNISONE 20 MG TAB 160668 PREDNISON E Inactive ZITHROMAX 250 MG TAB 2 po today, then 1 po q days 2-5 ZITHROMAX 250 MG TAB 7738305 AZITHROMYCIN Inactive FLAGYL 500 MG TAB 1 tablet by mouth two times daily 07/11/29 FLAGYL 500 MG TAB 593114 METRONIDAZOLE Inactive AUGMENTIN 875-125 MG TAB 1 tab by mouth twice daily with food 08/12/16 AUGMENTIN 875-125 MG TAB 927789 AMOXICILLIN-POT CLAVULA ANGELO Inactive NAPROXEN 500 MG TAB one tab PO BID NAPROXEN 500 MG TAB 057719 NAPROXEN Inactive Advance Directives Directive Description Start [...] 214 10^3/MM^3 10*3/mm3 142-424 Lab Report: Chlamydia/GC APTIMA/19529 - Lab chlamydia DNA probe NOT DETECTED NOT DETECTED Lab Report: Chlamydia/GC APTIMA/42656 - Microbiology Neisseria gonorrhoeae DNA probe NOT [...] 5.0-8.5 Encounters Code Encounter Date Provider Facility CPT-93449 Level 3 Est. Patient 14:18:20 CDT Rich Rosales MD [facility] CPT-66206 Level 4 Est. Patient 09:34:31 CDT Arie mcqueen MD [facility] CPT-74429 Level 3 Est. Patient 09:08:55 [employer]NEL [employer]M PLACING SUPERVISOR Liliana vincent MD PhD [facility] CPT-67156 Level 3 Est. 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 Patient 10:44:27 CDT Arie mcqueen MD [facility] CPT-71378 Level 3 Est. Patient 08:55:41 CDT Jose Zhong MD [facility] CPT-27985 Level 3 Est. Patient 18:37:31 CDT Liliana vincent MD PhD [facility] CPT-83661 Level 3 Est. Patient 14:28:23 CDT Abelardo marroquin [facility] CPT-11086 Level 3 Est. 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 Patient 17:29:05 CDT Arie mcqueen MD [facility] Procedures Code Procedure Name Date Entry Date Standard Desc ription CPT-OV Office Visit 15:30:23 CDT CPT-39492 Sono pelvis non OB uterus ovaries cervix 15:50:44 CDT CPT-16002 Hand comp min 3V 16:42:32 CDT CPT-51186 Abd compl w upright 12:17:01 CDT CPT-96536 Nexplanon Placement 15:07:39 TUNNEL [employer]M PLACING SUPERVISOR CPT-94967 Removal of IUD 15:07:39 TUNNEL FORM PLACING SUPERVISOR CPT-93615 TB Tubersol 12:09:32 CDT CPT-68688 TB Tubersol 13:55:43 CDT
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
--- OUTSIDE RECORDS SUMMARY | 2020-03-03 08:05 | XMS REPORT | Clinical Summary ---
Author Author Admin, Diamante Marcelo Organization [employer] Address Unknown Phone Unavailable Allergies, Adverse Reactions, [...] cute pharyngitis Nausea 787.02 Active Brii Larson [employer] Nausea alone URI 465.9 Active Jono Gagnon DO Acu te upper respiratory infections of unspecified site Allergic rhinitis 477.9 Active Brii Christianson PRN Allergic rhinitis, cause unspecified Abdominal pain, right lower quadrant 789.03 Active Jose Zhong MD Abdominal pain, right lower quadrant Urinary frequency 788.41 Inactive Roseann Crawford Urinary frequency Urinary frequency 788.41 Active 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, [employer] Urinary frequency Sinusitis - acute 461.9 Active Brii Christianson PRN Acute sinusitis, unspecified Anxiety with depression 300.4 Active Glenn Larson [employer] Dysthymic disorder URI 465.9 Active Jono Gagnon [...] po q12hr PRN Cough HYDROCOD POLST-CHLORPHEN POLST 12261856799 No Longer Active Brii Larson APRN Active CETIRIZINE HCL 10 MG ORAL TABS 1 po qd PRN Allergies 2 CETIRIZINE HCL 16971372762 No Longer Active Brii Larson APRN Ac tive PREDNISONE 20 MG TAB 2 tabs daily for 3 days, 1 t ab daily for 3 days, 1/2 tab daily for 2 days PREDNISONE 89855702879 No Longer Active Arie Casper MD Active NEXPLANON IMPL right arm subcutaneously ETONOGE STREL IMPL 68393691507 Active Arie Casper MD Active LOMOTIL 2.5-0.025 MG TAB 1 tab po four times a day as needed for diarrhea DIPHENOXYLATE-ATROPINE 31782058435 No Longer Active Mason Casper MD Active ZOLOFT 50 MG TAB 1 tablet by mouth daily SERTRA LINE HCL 00850010550 No Longer Active Arie Casper MD Active NAPROXEN 500 MG TAB Take 1 tab BID NAPROXEN 332 78173391 No Longer Active Arie Casper MD Active CEFDINIR 300 MG CAPS 1 po BID x 10 days CEFDINI R 81278504265 No Longer Active Brii Larson APRN Active PREDNISONE 20 MG TAB 1 tablet daily for airway inflammation 2015 PREDNISONE 48809306305 No Longer Active Brii Larson APRN Active CEFDINIR 300 MG CAPS 1 po BID x 10 days CEFDINI R 14009354093 No Longer Active Jono Gagnon DO Active FLONASE 50 MCG/ACT SUSP 1 spray each nostril twice d aily for allergies and runny nose until gone FLUTICASONE PROPIONATE No Longe r Active Jono Gagnon DO Active ALPRAZOLAM 0.25 MG TAB 1 tablet by mouth every 8 hours as ne eded for stress ALPRAZOLAM 80264360608 No Longer Active Jono Gagnon DO Active ZITHROMAX Z-EMIL 250 MG TABS 2 today, then 1 daily for 4 days 201 03/31/18 AZITHROMYCIN 06259751798 No Longer Active Arie Casper MD Active PROTONIX 40 MG ORAL TBEC 1 po q a.m. PANTOPRAZO LE SODIUM 50180418759 Active Arie Casper MD Active PREDNISONE 20 MG TAB 2 tabs daily for 3 days, 1 t ab daily for 3 days, 1/2 tab daily for 2 days PREDNISONE 85412381610 No Longer Active Brii Larson APRN Active PREDNISONE 20 MG TAB 1 tablet twice daily for 2 d ays, then 1 tablet once daily for 2 days PREDNISONE 28387893606 No Longer Active Brii Larson APRN Active PROMETHAZINE HCL 12.5 MG TABS 1 tablet by mouth every 6 hours as needed for nausea/vomiting PROMETHAZINE HCL 88346672682 No Longe r Active oJno Gagnon DO Active CITRATE OF MAGNESIA ORAL SOLN 1 bottle today for constipation 20 07/10/15 MAGNESIUM CITRATE 57406818980 No Longer Active Jono Gagnon DO Active ZOFRAN 4 MG ORAL TABS 1 TAB PO Q 6 HRS PRN NAUSEA 2014 ONDANSETRON HCL 51481815060 No Longer Active Brii Larson APRN A ctive LOMOTIL 2.5-0.025 MG TAB 1 to 2 four times a day as needed f or diarrhea DIPHENOXYLATE-ATROPINE 35431238451 No Longer Active January Larson APRN Active AMOXICILLIN 500 MG TABS 2 tabs twice a day for 10 days AMOXICILLIN 46245009419 No Longer Active Brii Larson APRN Acti ve CYCLOBENZAPRINE HCL 10 MG TABS 1/2 - 1 tablet by mouth three times daily as needed for muscle spasm/pain CYCLOBENZAPRINE HCL 20806305626 No Longer Active Arie Casper MD Active LOMOTIL 2.5-0.025 MG TABS 1 to 2 four times a day as needed for diarrhea DIPHENOXYLATE-ATROPINE 74073649461 No Longer Active Mason Casper MD Active MACROBID 100 MG CAP 1 cap by mouth twice daily NITROFURANTOIN MONOHYD MACRO 34235582371 No Longer Active Arie Casper MD Active ZYRTEC ALLERGY 10 MG CAPS 1 po qd CETIRIZINE HCL 93478916759 No Longer Active Arie Casper MD Active AZITHROMYCIN 250 MG TABS 2 po qd x 1 day, then 1 po qd x 4 days AZITHROMYCIN 97029603594 No Longer Active Jillina Frazell [employer] Active PREDNISONE 20 MG TAB 2 tabs daily for 3 days, 1 t ab daily for 3 days, 1/2 tab daily for 2 days PREDNISONE 02246113058 No Longer Active Jillina Frazell [employer] Active PROMETHAZINE HCL 25 MG TABS 1 four times a day as needed for vomiting PROMETHAZINE HCL 41124543506 No Longer Active Myrna Roberto MD Active BACTRIM DS 800-160 MG TABS 1 twice a day SULFAMETHOXAZOLE-TRIMETHOPRIM 58737969749 No Longer Active Myrna Roberto MD Active VICKS DAYQUIL SEVERE COLD/FLU TABS 1 tab every 6 hours prn 12/10 [id number] TABS 86363978869 No Longer Active Myrna leigh MD Active GUAIFENESIN-CODEINE 100-10 MG/5ML ORAL SYRP 2 tsp every 6 hours prn GUAIFENESIN-CODEINE 30463737146 No Longer Active Myrna Roberto MD Active NAPROXEN 500 MG TAB one tab PO BID NAPROXEN 332 02590520 No Longer Active Myrna Roberto MD Active AUGMENTIN 875-125 MG TAB 1 tab by mouth twice daily with food 08/12/16 AMOXICILLIN-POT CLAVULANATE 15543909141 No Longer Active Liliana Estrada MD PhD Active AMOXICILLIN 500 MG CAP 1 tab by mouth 3 times daily 08/12/16 AMOXICILLIN 80349215178 No Longer Active Liliana Estrada MD PhD Acti ve TESSALON PERLES 100 MG CAP 1 tablet by mouth 3 times daily 11/01 BENZONATATE 92075842592 No Longer Active Liliana Estrada MD PhD Active FLAGYL 500 MG TAB 1 tablet by mouth two times daily 20 07/11/29 METRONIDAZOLE 67384446322 No Longer Active Nilam Weber Active ZITHROMAX 250 MG TAB 2 po today, then 1 po q days 2-5 AZITHROMYCIN 02819602176 No Longer Active Arie Casper MD Acti ve VITAMINS 0.8 MG TABS take 1 tab po qday 08/08 [id number] 04016735473 No Longer Active Arie Casper MD Active IBUPROFEN 800 MG TABS take one po Q 8 hours IBU PROFEN 37572211175 No Longer Active Arie Casper MD Active [facility] TUSSIN COUGH/COLD CF 5-10-100 MG/5ML LIQD 2 teaspoons ev eliud 4 hours [id number] 76595325056 No Longer Active Blaine Casper MD Active COMTREX COLD/COUGH DAY/NITE MS 5-2-10-325 MG MISC 2 caps deja ry 4 hours [id number] 57156218537 No Longer Active Da vimason Casper MD Active CHLORASEPTIC MAX SORE THROAT 15-10 MG LOZG 1 every 2 hours prn 2 BENZOCAINE-MENTHOL 80982325703 No Longer Active Arie Marcelo Active PREDNISONE 20 MG TAB 2 tabs daily for 3 days, 1 t ab daily for 3 days, 1/2 tab daily for 2 days PREDNISONE 84106619466 No Longer Active Jose Zhong MD Active AZITHROMYCIN 250 MG TABS 2 po qd x 1 day, then 1 po qd x 4 days AZITHROMYCIN 39636605030 No Longer Active Jose Zhong MD Active ZOFRAN ODT 4 MG TBDP 1 po q6hr PRN Nausea ONDAN SETRON 19595222925 No Longer Active Rich Rosales MD Active ZOFRAN 4 MG TABS 1 tablet every 4 hours ONDANSE JERRELL HCL 41337855196 No Longer Active Rich Rosales MD Active MUCINEX 600 MG [id number] Take 1-2 tablets every 12 hours GUAIFENESIN 99697116048 No Longer Active Rich Rosales MD Activ e BACTRIM 400-80 MG TABS take one po BID SULFAMETHOXAZOLE-TRIMETHOPRIM 37667144695 No Longer Active Abelardo HERNANDEZ Active AZITHROMYCIN 500 MG TABS 1 PO q day x 6 days AZ ITHROMYCIN 88240775067 No Longer Active Tin HERNANDEZ Active ZITHROMAX 250 MG TAB 2 po today, then 1 po q days 2-5 AZITHROMYCIN 83738469817 No Longer Active Arie Casper MD Acti ve ZITHROMAX 250 MG TAB 2 po today, then 1 po q days 2-5 AZITHROMYCIN 61337071885 No Longer Active Arie Casper MD Acti ve AMOXICILLIN 500 MG CAP 1 tab by mouth 3 times daily 20 09/23/20 AMOXICILLIN 36965999184 No Longer Active Arie Casper MD Acti ve BACTRIM DS 800-160 MG TAB 1 tab by mouth twice daily 2 TRIMETHOPRIM-SULFAMETHOXAZOLE 70048791983 No Longer Active Arie Casper MD Active AMOXICILLIN 500 MG TABS take 1 tab po TID AMOXI CILLIN 51113533146 No Longer Active Arie Casper MD Active BACTRIM DS 800-160 MG TAB 1 tab by mouth twice daily 2 BACTRIM DS 800-160 MG TAB 921148 TRIMETHOPRIM-SULFAMETHOXAZOLE Inac tive MUCINEX 600 MG [id number] Take 1-2 tablets every 12 hours MUCINEX 600 MG [id number] GUAIFENESIN Inactive ZOFRAN 4 MG TABS 1 tablet every 4 hours ZOFRAN 4 MG TABS 646825 ONDANSETRON HCL Inactive ZOFRAN ODT 4 MG TBDP 1 po q6hr PRN Nausea ZOFRAN ODT 4 MG TBDP 768834 ONDANSETRON Inactive CHLORASEPTIC MAX SORE THROAT 15-10 MG LOZG 1 every 2 hours prn 2 CHLORASEPTIC MAX SORE THROAT 15-10 MG LOZG BENZO ARINA-MENTHOL Inactive COMTREX COLD/COUGH DAY/NITE MS 5-2-10-325 MG MISC 2 caps deja ry 4 hours COMTREX COLD/COUGH DAY/NITE MS 5-2-10-325 MG MIS C [id number]-APAP Inactive [facility] TUSSIN COUGH/COLD CF 5-10-100 MG/5ML LIQD 2 teaspoons ev eliud 4 hours [facility] TUSSIN COUGH/COLD CF 5-10-100 MG/5ML LIQD [id number] Inactive IBUPROFEN 800 MG TABS take one po Q 8 hours IBUPROFEN 800 MG TABS IBUPROFEN Inactive VITAMINS 0.8 MG TABS take 1 tab po qday 08/08 VITAMINS 0.8 MG TABS [id number]-FA Inactive TESSALON PERLES 100 MG CAP 1 tablet by mouth 3 times daily 11/01 TESSALON PERLES 100 MG CAP 422364 BENZONATATE Inact zaid AMOXICILLIN 500 MG CAP 1 tab by mouth 3 times daily 08/12/16 AMOXICILLIN 500 MG CAP 763693 AMOXICILLIN Inactive GUAIFENESIN-CODEINE 100-10 MG/5ML ORAL SYRP 2 tsp every 6 hours prn GUAIFENESIN-CODEINE 100-10 MG/5ML ORAL SYRP 276790 GUAIFENESIN-CODEINE Inactive VICKS DAYQUIL SEVERE COLD/FLU TABS 1 tab every 6 hours prn 12/10 BEVERLY DAYQUIL SEVERE COLD/FLU TABS PHENYLEPHRINE -DM-GG-APAP TABS Inactive BACTRIM DS 800-160 MG TABS 1 twice a day BACTRIM DS 800- 160 MG TABS 327442 SULFAMETHOXAZOLE-TRIMETHOPRIM Inactive PROMETHAZINE HCL 25 MG TABS 1 four times a day as needed for vomiting PROMETHAZINE HCL 25 MG TABS 769916 PROMETHAZINE HCL Inactive ZYRTEC ALLERGY 10 MG CAPS 1 po qd ZY RTEC ALLERGY 10 MG CAPS CETIRIZINE HCL Inactive MACROBID 100 MG CAP 1 cap by mouth twice daily MACROBID 100 MG CAP 4831457 NITROFURANTOIN MONOHYD MACRO Inactive LOMOTIL 2.5-0.025 MG TABS 1 to 2 four times a day as needed for diarrhea LOMOTIL 2.5-0.025 MG TABS 2072069 DIPHENOXYLATE-A TROPINE Inactive CYCLOBENZAPRINE HCL 10 MG TABS 1/2 - 1 tablet by mouth three times daily as needed for muscle spasm/pain CYCLOBENZAP RINE HCL 10 MG TABS 949324 CYCLOBENZAPRINE HCL Inactive AMOXICILLIN 500 MG TABS 2 tabs twice a day for 10 days AMOXICILLIN 500 MG TABS 422354 AMOXICILLIN Inactive LOMOTIL 2.5-0.025 MG TAB 1 to 2 four times a day as needed f or diarrhea LOMOTIL 2.5-0.025 MG TAB 8240233 DIPHENOXYLATE-AT ROPINE Inactive ZOFRAN 4 MG ORAL TABS 1 TAB PO Q 6 HRS PRN NAUSEA 2014 ZOFRAN 4 MG ORAL TABS 828017 ONDANSETRON HCL Inactive CITRATE OF MAGNESIA ORAL SOLN 1 bottle today for constipation 20 07/10/15 CITRATE OF MAGNESIA ORAL SOLN 4145383 MAGNESIUM CITRATE Inactive PROMETHAZINE HCL 12.5 MG TABS 1 tablet by mouth every 6 hours as needed for nausea/vomiting PROMETHAZINE HCL 12.5 MG TABS 126180 PROMETHAZINE HCL Inactive PREDNISONE 20 MG TAB 1 tablet twice daily for 2 d ays, then 1 tablet once daily for 2 days PREDNISONE 20 MG TAB 863863 PREDNISONE Inac tive ALPRAZOLAM 0.25 MG TAB 1 tablet by mouth every 8 hours as ne eded for stress ALPRAZOLAM 0.25 MG TAB 219146 ALPRAZOLAM Inact zaid FLONASE 50 MCG/ACT SUSP 1 spray each nostril twice d aily for allergies and runny nose until gone FLONASE 50 MCG/ACT SUSP 9099975 FLUTICASONE PROPIONATE Inactive PREDNISONE 20 MG TAB 1 tablet daily for airway inflammation 2015 PREDNISONE 20 MG TAB 271362 PREDNISONE Inactive NAPROXEN 500 MG TAB Take 1 tab BID NAPROXEN 500 MG TAB 310853 NAPROXEN Inactive ZOLOFT 50 MG TAB 1 tablet by mouth daily ZOLOFT 50 MG TAB 120104 SERTRALINE HCL Inactive LOMOTIL 2.5-0.025 MG TAB 1 tab po four times a day as needed for diarrhea LOMOTIL 2.5-0.025 MG TAB 4030405 DIPHENOXYLATE-AT ROPINE Inactive CETIRIZINE HCL 10 MG ORAL TABS 1 po qd PRN Allergies 2 CETIRIZINE HCL 10 MG ORAL TABS 0631421 CETIRIZINE HCL Inactive TUSSIONEX PENNKINETIC ER 10-8 MG/5ML LQCR 5ml po q12hr PRN Cough TUSSIONEX PENNKINETIC ER 10-8 MG/5ML LQCR HYDROCOD POLST-CHLORPHEN POLST Inactive AMOXICILLIN 500 MG TABS take 1 tab po TID AMOXICILLIN 500 MG TABS 319864 AMOXICILLIN Inactive AMOXICILLIN 500 MG CAP 1 tab by mouth 3 times daily 09/23/20 AMOXICILLIN 500 MG CAP 161438 AMOXICILLIN Inactive ZITHROMAX 250 MG TAB 2 po today, then 1 po q days 2-5 ZITHROMAX 250 MG TAB 232634 AZITHROMYCIN Inactive ZITHROMAX 250 MG TAB 2 po today, then 1 po q days 2-5 ZITHROMAX 250 MG TAB 470644 AZITHROMYCIN Inactive AZITHROMYCIN 500 MG TABS 1 PO q day x 6 days 3 AZITHROMYCIN 500 MG TABS 0728501 AZITHROMYCIN Inactive BACTRIM 400-80 MG TABS take one po BID BA CTRIM 400-80 MG TABS 016360 SULFAMETHOXAZOLE-TRIMETHOPRIM Inactive AZITHROMYCIN 250 MG TABS 2 po qd x 1 day, then 1 po qd x 4 days AZITHROMYCIN 250 MG TABS 836688 AZITHROMYCIN Inactiv e PREDNISONE 20 MG TAB 2 tabs daily for 3 days, 1 t ab daily for 3 days, 1/2 tab daily for 2 days PREDNISONE 20 MG TAB 112673 PREDNISON E Inactive ZITHROMAX 250 MG TAB 2 po today, then 1 po q days 2-5 ZITHROMAX 250 MG TAB 613123 AZITHROMYCIN Inactive FLAGYL 500 MG TAB 1 tablet by mouth two times daily 07/11/29 FLAGYL 500 MG TAB 183991 METRONIDAZOLE Inactive AUGMENTIN 875-125 MG TAB 1 tab by mouth twice daily with food 20 08/12/16 AUGMENTIN 875-125 MG TAB 098987 AMOXICILLIN-POT CLAVULA ANGELO Inactive NAPROXEN 500 MG TAB one tab PO BID NAPROXEN 500 MG TAB 768651 NAPROXEN Inactive PREDNISONE 20 MG TAB 2 tabs daily for 3 days, 1 t ab daily for 3 days, 1/2 tab daily for 2 days PREDNISONE 20 MG TAB 990662 PREDNISON E Inactive AZITHROMYCIN 250 MG TABS 2 po qd x 1 day, then 1 po qd x 4 days AZITHROMYCIN 250 MG TABS 883772 AZITHROMYCIN Inactiv e PREDNISONE 20 MG TAB 2 tabs daily for 3 days, 1 t ab daily for 3 days, 1/2 tab daily for 2 days PREDNISONE 20 MG TAB 162171 PREDNISON E Inactive ZITHROMAX Z-EMIL 250 MG TABS 2 today, then 1 daily for 4 days 201 03/31/18 ZITHROMAX Z-EMIL 250 MG TABS 046076 AZITHROMYCIN Inac tive CEFDINIR 300 MG CAPS 1 po BID x 10 days C EFDINIR 300 MG CAPS 546517 CEFDINIR Inactive CEFDINIR 300 MG CAPS 1 po BID x 10 days C EFDINIR 300 MG CAPS 360717 CEFDINIR Inactive PREDNISONE 20 MG TAB 2 tabs daily for 3 days, 1 t ab daily for 3 days, 1/2 tab daily for 2 days PREDNISONE 20 MG TAB 445135 PREDNISON E Inactive Advance Directives Directive Description [...] Value Unit Range Description Lab Report: Chlamydia/GC APTIMA/[id number] - Lab chlamydia DNA probe NOT DETECTED NOT DETECTED Lab Report: Chlamydia/GC APTIMA/58809 - Microbiology Neisseria gonorrhoeae DNA probe NOT [...] ative Encounters Code Encounter Date Provider Facility CPT-46123 Level 3 Est. Patient 15:40:28 CDT Steve RETIREMENT [employer]ARY [facility] CPT-65531 Level 3 Est. Patient 16:40:36 CDT Arie mcqueen MD [facility] CPT-07342 Level 4 Est. Patient 15:29:22 ADVANCE SCOUT Arie mcqueen MD [facility] CPT-97324 Level 3 Est. Patient 15:18:16 ADVANCE SCOUT Jono black DO [facility] CPT-01695 Level 4 Est. Patient 12:08:40 ADVANCE SCOUT Steve CABRERA [facility] CPT-42588 Level 3 Est. Patient 09:24:42 CDT Steve CABRERA [facility] CPT-21314 Level 3 Est. Patient 09:12:56 CDT Arie mcqueen MD [facility] CPT-13924 Level 3 Est. Patient 16:40:54 CDT Jose Zhong MD [facility] CPT-28492 Level 2 Est. Patient 13:01:13 CDT Steve CABRERA [facility] CPT-00215 Level 3 Est. Patient 11:55:30 ADVANCE SCOUT Jono black DO [facility] CPT-37954 Level 3 Est. Patient 09:52:36 ADVANCE SCOUT Steve CABRERA [facility] CPT-30993 Level 3 Est. Patient 16:25:33 ADVANCE SCOUT Rich Rosales MD [facility] CPT-80837 Level 3 Est. Patient 20:33:55 CDT Arie mcqueen MD [facility] CPT-24072 Level 3 Est. Patient 14:18:20 CDT Rich Rosales MD [facility] CPT-67271 Level 4 Est. Patient 09:34:31 CDT Arie mcqueen MD [facility]-02477 Level 3 Est. Patient 09:08:55 ADVANCE SCOUT Liliana vincent MD PhD [facility] CPT-02099 Level 3 Est. Patient 16:44:07 ADVANCE SCOUT Arie mcqueen MD [facility] CPT-00124 Level 3 Est. Patient 10:44:27 CDT Arie mcqueen MD [facility] CPT-81321 Level 3 Est. Patient 08:55:41 CDT Jose Zhong MD [facility] CPT-01864 Level 3 Est. Patient 18:37:31 CDT Liliana vincent MD PhD [facility] CPT-53030 Level 3 Est. Patient 14:28:23 CDT Abelardo HENRANDEZ [facility] CPT-62561 Level 3 Est. Patient 15:18:13 ADVANCE SCOUT Arie mcqueen MD [facility] CPT-33211 Level 3 Est. Patient 10:11:29 ADVANCE SCOUT Arie mcqueen MD [facility] CPT-19614 Level 3 Est. Patient 10:55:57 ADVANCE SCOUT Jono black DO [facility] CPT-26096 Level 3 Est. Patient 17:29:05 CDT Arie mcqueen MD [facility] Procedures Code Procedure Name Date Entry Date Standard Desc ription CPT-12437 Nexplanon Removal 15:40:28 CDT CPT-37626 Sono transvag pelvis non OB uterus ovari es cervix - XRAY USE ONLY 08:58:14 ADVANCE SCOUT CPT-70657 UA w micro - LAB USE ONLY 16:04:56 ADVANCE SCOUT 2015 CPT-27057 Wet Prep/GEN - LAB USE ONLY 16:04:56 ADVANCE SCOUT 20 08/10/29 CPT-58056 First Vx - Ix admin via ID I M or jet injects without counseling by physician 16:57:10 CDT CPT-26300 Fluzone Preservative Free Intramuscular Suspension 16:57:10 CDT CPT-J0696 Rocephin 1000 mg (Ceftriaxone) 11:49:23 CDT CPT-J1040 Depo Medrol 80 mg (Methyl Prednisolone A cetate) 11:49:23 CDT CPT-J1100 Decadron 8mg (Dexamethasone) 11:49:23 CDT 2 CPT-33784 Abx/Therapy Injection 11:49:23 CDT CPT-75979 Abx/Therapy Injection 11:49:23 CDT CPT-82805 Abd compl w upright 09:07:26 ADVANCE SCOUT CPT-02014 Ear Wash 16:12:47 ADVANCE SCOUT CPT-OV Office Visit 11:12:01 CDT CPT-OV Office Visit 15:30:23 CDT CPT-24813 Sono pelvis non OB uterus ovaries cervix 15:50:44 CDT CPT-04464 Hand comp min 3V 16:42:32 CDT CPT-09501 Abd compl w upright 12:17:01 CDT CPT-84503 Nexplanon Placement 15:07:39 ADVANCE SCOUT CPT-26866 Removal of IUD 15:07:39 ADVANCE SCOUT CPT-68589 TB Tubersol 12:09:32 CDT CPT-97639 TB Tubersol 13:55:43 CDT
--- OUTSIDE RECORDS SUMMARY | 2020-03-03 08:05 | XMS REPORT | Clinical Summary ---
Author Author Admin, Diamante Marcelo Organization [facility] Address Unknown Phone Unavailable [...] a day as needed for diarrhea DIPHENOXYLATE-ATROPINE [id number] Active Rich mcintosh MD Active PROMETHAZINE HCL 25 MG TABS 1 four times a day as needed for vomiting PROMETHAZINE HCL 78828897477 Active Rich Rosales MD Active BACTRIM DS 800-160 MG TABS 1 twice a day SULFAMETHOXAZOLE-TRIMETHOPRIM 79731042340 Active Rich Rosales MD Active AUGMENTIN 875-125 MG TAB 1 tab by mouth twice daily with food 08/12/16 AMOXICILLIN-POT CLAVULANATE 57202541705 No Longer Active Liliana Estrada MD PhD Active CYCLOBENZAPRINE HCL 10 MG TABS 1/2 - 1 tablet by mouth three times daily as needed for muscle spasm/pain CYCLOBENZAPRINE HCL 47748 382340 Active Liliana Estrada MD PhD Active GUAIFENESIN-CODEINE 100-10 MG/5ML ORAL SYRP 2 tsp every 6 hours prn GUAIFENESIN-CODEINE 28704317178 Active Liliana Estrada MD PhD Active VICKS DAYQUIL SEVERE COLD/FLU TABS 1 tab every 6 hours prn [id number] TABS 03921110739 Active Liliana Estrada MD PhD Active AMOXICILLIN 500 MG CAP 1 tab by mouth 3 times daily 08/12/16 AMOXICILLIN 57884435457 No Longer Active Liliana Estrada MD PhD Acti ve TESSALON PERLES 100 MG CAP 1 tablet by mouth 3 times daily 11/01 BENZONATATE 21730515876 No Longer Active Liliana Estrada MD PhD Active FLAGYL 500 MG TAB 1 tablet by mouth two times daily 07/11/29 METRONIDAZOLE 59329138069 No Longer Active Nilam Weber Active ZITHROMAX 250 MG TAB 2 po today, then 1 po q days 2-5 AZITHROMYCIN 54084708769 No Longer Active Arie Casper MD Acti ve VITAMINS 0.8 MG TABS take 1 tab po qday 08/08 [id number] 56875661376 No Longer Active Arie Casper MD Active IBUPROFEN 800 MG TABS take one po Q 8 hours IBU PROFEN 68909192789 No Longer Active Arie Casper MD Active [facility] TUSSIN COUGH/COLD CF 5-10-100 MG/5ML LIQD 2 teaspoons ev eliud 4 hours [id number] 02394551071 No Longer Active Blaine Casper MD Active COMTREX COLD/COUGH DAY/NITE MS 5-2-10-325 MG MISC 2 caps deja ry 4 hours [id number] 26794591382 No Longer Active Da aleksandra Casper MD Active CHLORASEPTIC MAX SORE THROAT 15-10 MG LOZG 1 every 2 hours prn 2 BENZOCAINE-MENTHOL 06941500166 No Longer Active Arie Marcelo Active PREDNISONE 20 MG TAB 2 tabs daily for 3 days, 1 t ab daily for 3 days, 1/2 tab daily for 2 days PREDNISONE 27360490951 No Longer Active Jose Zhong MD Active AZITHROMYCIN 250 MG TABS 2 po qd x 1 day, then 1 po qd x 4 days AZITHROMYCIN 23565348449 No Longer Active Jose Zhong MD Active ZOFRAN ODT 4 MG TBDP 1 po q6hr PRN Nausea ONDAN SETRON 69854065977 No Longer Active Rich Rosales MD Active ZOFRAN 4 MG TABS 1 tablet every 4 hours ONDANSE JERRELL HCL 93033167983 No Longer Active Rich Rosales MD Active MUCINEX 600 MG [id number] Take 1-2 tablets every 12 hours GUAIFENESIN 06476806619 No Longer Active Rich Rosales MD Activ e BACTRIM 400-80 MG TABS take one po BID SULFAMETHOXAZOLE-TRIMETHOPRIM 48721451392 No Longer Active Abelardo HERNANDEZ Active AZITHROMYCIN 500 MG TABS 1 PO q day x 6 days AZ ITHROMYCIN 50380514836 No Longer Active Tin HERNANDEZ Active ZITHROMAX 250 MG TAB 2 po today, then 1 po q days 2-5 AZITHROMYCIN 18731386020 No Longer Active Arie Casper MD Acti ve ZITHROMAX 250 MG TAB 2 po today, then 1 po q days 2-5 AZITHROMYCIN 52280843400 No Longer Active Arie Casper MD Acti ve AMOXICILLIN 500 MG CAP 1 tab by mouth 3 times daily 20 09/23/20 AMOXICILLIN 38694852376 No Longer Active Arie Casper MD Acti ve BACTRIM DS 800-160 MG TAB 1 tab by mouth twice daily 2 TRIMETHOPRIM-SULFAMETHOXAZOLE 00824323161 No Longer Active Arie Casper MD Active AMOXICILLIN 500 MG TABS take 1 tab po TID AMOXI CILLIN 30885651271 No Longer Active Arie Casper MD Active BACTRIM DS 800-160 MG TAB 1 tab by mouth twice daily 2 BACTRIM DS 800-160 MG TAB TRIMETHOPRIM-SULFAMETHOXAZOLE Inac tive MUCINEX 600 MG [id number] Take 1-2 tablets every 12 hours MUCINEX 600 MG [id number] GUAIFENESIN Inactive ZOFRAN 4 MG TABS 1 tablet every 4 hours ZOFRAN 4 MG TABS 248580 ONDANSETRON HCL Inactive ZOFRAN ODT 4 MG TBDP 1 po q6hr PRN Nausea ZOFRAN ODT 4 MG TBDP 750431 ONDANSETRON Inactive CHLORASEPTIC MAX SORE THROAT 15-10 MG LOZG 1 every 2 hours prn 2 014/04/30 CHLORASEPTIC MAX SORE THROAT 15-10 MG LOZG BENZO ARINA-MENTHOL Inactive COMTREX COLD/COUGH DAY/NITE MS 5-2-10-325 MG MISC 2 caps deja ry 4 hours COMTREX COLD/COUGH DAY/NITE MS 5-2-10-325 MG MIS C [id number]-APAP Inactive [facility] TUSSIN COUGH/COLD CF 5-10-100 MG/5ML LIQD 2 teaspoons ev eliud 4 hours [facility] TUSSIN COUGH/COLD CF 5-10-100 MG/5ML LIQD [id number] Inactive IBUPROFEN 800 MG TABS take one po Q 8 hours IBUPROFEN 800 MG TABS IBUPROFEN Inactive VITAMINS 0.8 MG TABS take 1 tab po qday 08/08 VITAMINS 0.8 MG TABS [id number] Inactive TESSALON PERLES 100 MG CAP 1 tablet by mouth 3 times daily 11/01 TESSALON PERLES 100 MG CAP 572453 BENZONATATE Inact zaid AMOXICILLIN 500 MG CAP 1 tab by mouth 3 times daily 08/12/16 AMOXICILLIN 500 MG CAP 514902 AMOXICILLIN Inactive AMOXICILLIN 500 MG TABS take 1 tab po TID AMOXICILLIN 500 MG TABS 028877 AMOXICILLIN Inactive AMOXICILLIN 500 MG CAP 1 tab by mouth 3 times daily 09/23/20 AMOXICILLIN 500 MG CAP 235982 AMOXICILLIN Inactive ZITHROMAX 250 MG TAB 2 po today, then 1 po q days 2-5 ZITHROMAX 250 MG TAB 5339902 AZITHROMYCIN Inactive ZITHROMAX 250 MG TAB 2 po today, then 1 po q days 2-5 ZITHROMAX 250 MG TAB 5946133 AZITHROMYCIN Inactive AZITHROMYCIN 500 MG TABS 1 PO q day x 6 days 3 AZITHROMYCIN 500 MG TABS 2667950 AZITHROMYCIN Inactive BACTRIM 400-80 MG TABS take one po BID BA CTRIM 400-80 MG TABS 303169 SULFAMETHOXAZOLE-TRIMETHOPRIM Inactive AZITHROMYCIN 250 MG TABS 2 po qd x 1 day, then 1 po qd x 4 days AZITHROMYCIN 250 MG TABS 0954146 AZITHROMYCIN Inactiv e PREDNISONE 20 MG TAB 2 tabs daily for 3 days, 1 t ab daily for 3 days, 1/2 tab daily for 2 days PREDNISONE 20 MG TAB 303458 PREDNISON E Inactive ZITHROMAX 250 MG TAB 2 po today, then 1 po q days 2-5 ZITHROMAX 250 MG TAB 5110940 AZITHROMYCIN Inactive FLAGYL 500 MG TAB 1 tablet by mouth two times daily 07/11/29 FLAGYL 500 MG TAB 918571 METRONIDAZOLE Inactive AUGMENTIN 875-125 MG TAB 1 tab by mouth twice daily with food 08/12/16 AUGMENTIN 875-125 MG TAB 949355 AMOXICILLIN-POT CLAVULA ANGELO Inactive Advance Directives Directive [...] Negative;Positive Encounters Code Encounter Date Provider Facility CPT-11640 Level 3 Est. Patient 14:18:20 CDT Rich Rosales MD [facility] CPT-26710 Level 4 Est. Patient 09:34:31 CDT Arie mcqueen [facility] CPT-68451 Level 3 Est. 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 Patient 10:44:27 CDT Arie mcqueen MD [facility] CPT-97508 Level 3 Est. Patient 08:55:41 CDT Jose Zhong MD [facility] CPT-02631 Level 3 Est. Patient 18:37:31 CDT Liliana vincent MD PhD [facility] CPT-20143 Level 3 Est. Patient 14:28:23 CDT Abelardo HERNANDEZ [facility] CPT-05103 Level 3 Est. 

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
--- OUTSIDE RECORDS SUMMARY | 2020-03-03 08:06 | XMS REPORT | Clinical Summary ---
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 Unspecified sinusitis (chronic) Other mixed anxiety [...] a day as needed for stress/anxiety ALPRAZOLAM 58138700187 Active Arie whittington MD Active ESCITALOPRAM OXALATE 10 MG ORAL TABLET take 1 tab po qhs for mod 20 10/04/18 ESCITALOPRAM OXALATE 06416861120 Active Arie Casper MD Active TUSSIONEX PENNKINETIC ER 10-8 MG/5ML ORAL SUSPENSION E XTENDED RELEASE 5ml po q12hr PRN Cough HYDROCOD POLST-CHLORPHEN POLST 5 0993486757 No Longer Active Myrna Roberto MD Active ZITHROMAX Z-EMIL 250 MG TABS Take two tablets today and then 1 tablet daily for 4 days AZITHROMYCIN 28138403465 No Longer Active Flaco Rosales MD Active GUAIFENESIN DM 400-20 MG ORAL TABLET 1 pill by mouth t wice daily, if needed for cough DEXTROMETHORPHAN-GUAIFENESIN 17651026975 No Longer Active Rich Rosales MD Active CEFDINIR 300 MG ORAL CAPSULE 1 po BID x 10 days CEFDINIR 01541001837 No Longer Active Jessica Heaton [employer]ICE MECH[employer]IC Active CHERATUSSIN AC 100-10 MG/5ML ORAL SYRUP 1 tsp by mouth every 4 hours as needed for cough GUAIFENESIN-CODEINE 14762186131 No Longe r Active Jessica Heaton [employer]ICE MECHANIC Active TAMIFLU 75 MG ORAL CAPSULE 1 po BID x 5 days 0 OSELTAMIVIR PHOSPHATE 58175550316 No Longer Active Jose Zhong MD Activ e ZITHROMAX Z-EMIL 250 MG ORAL TABLET 2 today, then 1 daily for 4 d ays AZITHROMYCIN 83296567860 No Longer Active Arie Casper MD Active PROTONIX 40 MG ORAL TABLET DELAYED RELEASE 1 po q a.m. PANTOPRAZOLE SODIUM 64353684114 No Longer Active Arie Casper MD Active BACTRIM DS 800-160 MG ORAL TABLET 1 tab by mouth twice daily 201 05/02/30 TRIMETHOPRIM-SULFAMETHOXAZOLE 36593850130 No Longer Active R [facility] Ty Active NEXPLANON IMPLANT right arm subcutaneously ETONOGESTREL IMPL 37621421481 No Longer Active Brii Russ APRN Active TUSSIONEX PENNKINETIC ER 10-8 MG/5ML ORAL SUSPENSION E XTENDED RELEASE 5ml po q12hr PRN Cough HYDROCOD POLST-CHLORPHEN POLST 5 9619117632 No Longer Active Brii Russ APRN Active CETIRIZINE HCL 10 MG ORAL TABLET 1 po qd PRN Allergies CETIRIZINE HCL 01964753891 No Longer Active Brii Russ APRN Activ e PREDNISONE 20 MG ORAL TABLET 2 tabs daily for 3 days, 1 tab daily for 3 days, 1/2 tab daily for 2 days PREDNISONE 42255696900 No Longer Active Arie Casper MD Active LOMOTIL 2.5-0.025 MG ORAL TABLET 1 tab po four times a day as needed for diarrhea DIPHENOXYLATE-ATROPINE 56446201629 No Lo nger Active Arie Casper MD Active ZOLOFT 50 MG ORAL TABLET 1 tablet by mouth daily 12/08 SERTRALINE HCL 19322162906 No Longer Active Arie Casper MD Ac tive NAPROXEN 500 MG ORAL TABLET Take 1 tab BID NAPR OXEN 55438435310 No Longer Active Arie Casper MD Active CEFDINIR 300 MG ORAL CAPSULE 1 po BID x 10 days CEFDINIR 31621635151 No Longer Active Brii Russ APRN Active PREDNISONE 20 MG ORAL TABLET 1 tablet daily for airway inflammat ion PREDNISONE 50341831719 No Longer Active Brii Russ APRN A ctive CEFDINIR 300 MG ORAL CAPSULE 1 po BID x 10 days CEFDINIR 46742447195 No Longer Active Jono Gagnon DO Active FLONASE 50 MCG/ACT NASAL SUSPENSION 1 spray each nostr il twice daily for allergies and runny nose until gone FLUT ICASONE PROPIONATE 75385020351 No Longer Active Jono Gagnon DO Active ALPRAZOLAM 0.25 MG ORAL TABLET 1 tablet by mouth every 8 hours as needed for stress ALPRAZOLAM 41353389176 No Longer Active Jono Gagnon DO Active ZITHROMAX Z-EMIL 250 MG ORAL TABLET 2 today, then 1 daily for 4 d ays AZITHROMYCIN 46485690472 No Longer Active Arie Casper MD Active PREDNISONE 20 MG ORAL TABLET 2 tabs daily for 3 days, 1 tab daily for 3 days, 1/2 tab daily for 2 days PREDNISONE 27594514506 No Longer Active Brii Russ APRN Active PREDNISONE 20 MG ORAL TABLET 1 tablet twice daily for 2 days, then 1 tablet once daily for 2 days PREDNISONE 54645397394 No Longer Active Brii Russ APRN Active PROMETHAZINE HCL 12.5 MG ORAL TABLET 1 tablet by mouth every 6 hours as needed for nausea/vomiting PROMETHAZINE HCL 33544027458 No L onger Active Jono Gagnon DO Active CITRATE OF MAGNESIA ORAL SOLUTION 1 bottle today for constipatio n MAGNESIUM CITRATE 54516776793 No Longer Active Jono Gagnon DO Active ZOFRAN 4 MG ORAL TABLET 1 TAB PO Q 6 HRS PRN NAUSEA 20 07/10/15 ONDANSETRON HCL 72879610213 No Longer Active Brii Russ APRN Acti ve LOMOTIL 2.5-0.025 MG ORAL TABLET 1 to 2 four times a day as needed for diarrhea DIPHENOXYLATE-ATROPINE 62525778736 No Longer Active January Russ APRN Active AMOXICILLIN 500 MG ORAL TABLET 2 tabs twice a day for 10 days 07/09/11 AMOXICILLIN 53953070954 No Longer Active Brii Russ APRN Active CYCLOBENZAPRINE HCL 10 MG ORAL TABLET 1/2 - 1 tablet b y mouth three times daily as needed for muscle spasm/pain CYCLOBENZAPRINE HCL 70481621784 No Longer Active Arie Casper MD Active LOMOTIL 2.5-0.025 MG ORAL TABLET 1 to 2 four times a day as needed for diarrhea DIPHENOXYLATE-ATROPINE 05749193797 No Longer Active Fozia Casper MD Active MACROBID 100 MG ORAL CAPSULE 1 cap by mouth twice daily NITROFURANTOIN MONOHYD MACRO 83543011979 No Longer Active Arie Casper MD Active ZYRTEC ALLERGY 10 MG ORAL CAPSULE 1 po qd CE TIRIZINE HCL 52343436720 No Longer Active Arie Casper MD Active AZITHROMYCIN 250 MG ORAL TABLET 2 po qd x 1 day, then 1 po q d x 4 days AZITHROMYCIN 37361125820 No Longer Active Jessica salgado APRN Active PREDNISONE 20 MG ORAL TABLET 2 tabs daily for 3 days, 1 tab daily for 3 days, 1/2 tab daily for 2 days PREDNISONE 91684192162 No Longer Active Jessica Heaton APRN Active PROMETHAZINE HCL 25 MG ORAL TABLET 1 four times a day as nee ded for vomiting PROMETHAZINE HCL 13025286522 No Longer Active Myrna Roberto MD Active BACTRIM DS 800-160 MG ORAL TABLET 1 twice a day 05/30 SULFAMETHOXAZOLE-TRIMETHOPRIM 55938049724 No Longer Active Myrna Roberto MD Active VICKS DAYQUIL SEVERE COLD/FLU TABLET 1 tab every 6 hours prn 201 02/22/17 [id number] TABS 65168824258 No Longer Active Chris Roberto MD Active GUAIFENESIN-CODEINE 100-10 MG/5ML ORAL SYRUP 2 tsp every 6 hours prn GUAIFENESIN-CODEINE 02237391470 No Longer Active Myrna Roberto MD Active NAPROXEN 500 MG ORAL TABLET one tab PO BID NAPR OXEN 77003717542 No Longer Active Myrna Roberto MD Active AUGMENTIN 875-125 MG ORAL TABLET 1 tab by mouth twice daily with food AMOXICILLIN-POT CLAVULANATE 14881648843 No Longer Act zaid Liliana Estrada MD PhD Active AMOXICILLIN 500 MG ORAL CAPSULE 1 tab by mouth 3 times daily 201 02/21/05 AMOXICILLIN 30376630076 No Longer Active Liliana Estrada MD PhD Active TESSALON PERLES 100 MG ORAL CAPSULE 1 tablet by mouth 3 times da cory BENZONATATE 24745733025 No Longer Active Liliana Estrada MD PhD Active FLAGYL 500 MG ORAL TABLET 1 tablet by mouth two times daily 2014 METRONIDAZOLE 60325132189 No Longer Active Nilam Doran tive ZITHROMAX 250 MG ORAL TABLET 2 po today, then 1 po q days 2-5 20 06/08/16 AZITHROMYCIN 00363564969 No Longer Active Arie Casper MD Active VITAMINS 0.8 MG ORAL TABLET take 1 tab po qday [id number] 56900527113 No Longer Active Arie Casper MD Active IBUPROFEN 800 MG ORAL TABLET take one po Q 8 hours 201 02/01/16 IBUPROFEN 64807489945 No Longer Active Arie Casper MD Acti ve [facility] TUSSIN COUGH/COLD CF 5-10-100 MG/5ML ORAL LIQUID 2 teasp oons every 4 hours [id number] 27248755310 No Longer Active Blaine Casper MD Active COMTREX COLD/COUGH DAY/NITE MS 5-2-10-325 MG ORAL 2 caps deja ry 4 hours [id number] 88851145860 No Longer Active Da aleksandra Casper MD Active CHLORASEPTIC MAX SORE THROAT 15-10 MG MOUTH/THROAT LOZENGE 1 every 2 hours prn BENZOCAINE-MENTHOL 25765978728 No Longer Active Arie Casper MD Active PREDNISONE 20 MG ORAL TABLET 2 tabs daily for 3 days, 1 tab daily for 3 days, 1/2 tab daily for 2 days PREDNISONE 33659427946 No Longer Active Jose Zhong MD Active AZITHROMYCIN 250 MG ORAL TABLET 2 po qd x 1 day, then 1 po q d x 4 days AZITHROMYCIN 64491440141 No Longer Active Jose Mcwilliams MD Active ZOFRAN ODT 4 MG ORAL TABLET DISINTEGRATING 1 po q6hr PRN Nausea ONDANSETRON 61357069349 No Longer Active Rich Rosales MD Active ZOFRAN 4 MG ORAL TABLET 1 tablet every 4 hours ONDANSETRON HCL 76240778267 No Longer Active Rich Rosales MD Activ e MUCINEX 600 MG ORAL TABLET EXTENDED RELEASE 12 HOUR Ta ke 1-2 tablets every 12 hours GUAIFENESIN 38909438831 No Longer Active Rich Rosalse MD Active BACTRIM 400-80 MG ORAL TABLET take one po BID SULFAMETHOXAZOLE-TRIMETHOPRIM 48654015784 No Longer Active Abelardo HERNANDEZ Active AZITHROMYCIN 500 MG ORAL TABLET 1 PO q day x 6 days 03/02/23 AZITHROMYCIN 87101552462 No Longer Active Tin HERNANDEZ Activ e ZITHROMAX 250 MG ORAL TABLET 2 po today, then 1 po q days 2-5 20 10/03/08 AZITHROMYCIN 70333695675 No Longer Active Arie Casper MD Active ZITHROMAX 250 MG ORAL TABLET 2 po today, then 1 po q days 2-5 20 09/23/25 AZITHROMYCIN 88710190360 No Longer Active Arie Casper MD Active AMOXICILLIN 500 MG ORAL CAPSULE 1 tab by mouth 3 times daily 201 11/24/09 AMOXICILLIN 41756217871 No Longer Active Arie Casper MD Active BACTRIM DS 800-160 MG ORAL TABLET 1 tab by mouth twice daily 201 11/03/14 TRIMETHOPRIM-SULFAMETHOXAZOLE 11863808022 No Longer Active Fozia Casper MD Active AMOXICILLIN 500 MG ORAL TABLET take 1 tab po TID 08/05 AMOXICILLIN 44509187514 No Longer Active Arie Casper MD Acti ve BACTRIM DS 800-160 MG ORAL TABLET 1 tab by mouth twice daily 201 11/03/14 BACTRIM DS 800-160 MG ORAL TABLET 699773 TRIMETHOPRIM-SULFAMETHOXAZOLE Inactive MUCINEX 600 MG ORAL TABLET EXTENDED RELEASE 12 HOUR Ta ke 1-2 tablets every 12 hours MUCINEX 600 MG ORAL TABLET EXTENDED RELEA SE 12 HOUR GUAIFENESIN Inactive ZOFRAN 4 MG ORAL TABLET 1 tablet every 4 hours ZOFRAN 4 MG ORAL TABLET 790293 ONDANSETRON HCL Inactive ZOFRAN ODT 4 MG ORAL TABLET DISINTEGRATING 1 po q6hr PRN Nausea ZOFRAN ODT 4 MG ORAL TABLET DISINTEGRATING 246157 ONDAN SETRON Inactive CHLORASEPTIC MAX SORE THROAT 15-10 MG MOUTH/THROAT LOZENGE 1 every 2 hours prn CHLORASEPTIC MAX SORE THROAT 15-10 MG MOUTH/THROAT LOZENGE BENZOCAINE-MENTHOL Inactive COMTREX COLD/COUGH DAY/NITE MS 5-2-10-325 MG ORAL 2 caps deja ry 4 hours COMTREX COLD/COUGH DAY/NITE MS 5-2-10-325 MG ORA L [id number] Inactive [facility] TUSSIN COUGH/COLD CF 5-10-100 MG/5ML ORAL LIQUID 2 teasp oons every 4 hours [facility] TUSSIN COUGH/COLD CF 5-10-100 MG/5ML ORAL LI QUID [id number] Inactive IBUPROFEN 800 MG ORAL TABLET take one po Q 8 hours 201 02/01/16 IBUPROFEN 800 MG ORAL TABLET 062413 IBUPROFEN Inactive VITAMINS 0.8 MG ORAL TABLET take 1 tab po qday VITAMINS 0.8 MG ORAL TABLET [id number] E-FA Inactive TESSALON PERLES 100 MG ORAL CAPSULE 1 tablet by mouth 3 times da cory TESSALON PERLES 100 MG ORAL CAPSULE 135831 BENZONATATE Inactive AMOXICILLIN 500 MG ORAL CAPSULE 1 tab by mouth 3 times daily 201 02/21/05 AMOXICILLIN 500 MG ORAL CAPSULE 058660 AMOXICILLIN Inactive GUAIFENESIN-CODEINE 100-10 MG/5ML ORAL SYRUP 2 tsp every 6 hours prn GUAIFENESIN-CODEINE 100-10 MG/5ML ORAL SYRUP 017236 GUAIFENESIN-CODEINE Inactive VICKS DAYQUIL SEVERE COLD/FLU TABLET 1 tab every 6 hours prn 201 02/22/17 VICKS DAYQUIL SEVERE COLD/FLU TABLET PHENYLEPHRI XX-[id number]-HD-APAP TABS Inactive BACTRIM DS 800-160 MG ORAL TABLET 1 twice a day 05/30 BACTRIM DS 800-160 MG ORAL TABLET 703255 SULFAMETHOXAZOLE-TRIMETHOPRIM Inactiv e PROMETHAZINE HCL 25 MG ORAL TABLET 1 four times a day as nee ded for vomiting PROMETHAZINE HCL 25 MG ORAL TABLET 229224 PROMETHAZINE HCL Inactive ZYRTEC ALLERGY 10 MG ORAL CAPSULE 1 po qd ZYRTEC ALLERGY 10 MG ORAL CAPSULE CETIRIZINE HCL Inactive MACROBID 100 MG ORAL CAPSULE 1 cap by mouth twice daily MACROBID 100 MG ORAL CAPSULE 7886293 NITROFURANTOIN MONOHYD MACRO In active LOMOTIL 2.5-0.025 MG ORAL TABLET 1 to 2 four times a day as needed for diarrhea LOMOTIL 2.5-0.025 MG ORAL TABLET 8912647 DIPHENOXYLATE-ATROPINE Inactive CYCLOBENZAPRINE HCL 10 MG ORAL TABLET 1/2 - 1 tablet b y mouth three times daily as needed for muscle spasm/pain CYCLOBEN ZAPRINE HCL 10 MG ORAL TABLET 753478 CYCLOBENZAPRINE HCL Inactive AMOXICILLIN 500 MG ORAL TABLET 2 tabs twice a day for 10 days 07/09/11 AMOXICILLIN 500 MG ORAL TABLET 010026 AMOXICILLIN I nactive LOMOTIL 2.5-0.025 MG ORAL TABLET 1 to 2 four times a day as needed for diarrhea LOMOTIL 2.5-0.025 MG ORAL TABLET 2301452 DIPHENOXYLATE-ATROPINE Inactive ZOFRAN 4 MG ORAL TABLET 1 TAB PO Q 6 HRS PRN NAUSEA 07/10/15 ZOFRAN 4 MG ORAL TABLET 832622 ONDANSETRON HCL Inactive CITRATE OF MAGNESIA ORAL SOLUTION 1 bottle today for constipatio n CITRATE OF MAGNESIA ORAL SOLUTION 4287982 MAGNESIUM CITR ATE Inactive PROMETHAZINE HCL 12.5 MG ORAL TABLET 1 tablet by mouth every 6 hours as needed for nausea/vomiting PROMETHAZINE HCL 12.5 MG ORA L TABLET 046599 PROMETHAZINE HCL Inactive PREDNISONE 20 MG ORAL TABLET 1 tablet twice daily for 2 days, then 1 tablet once daily for 2 days PREDNISONE 20 MG ORAL TABLET 324871 PREDNISONE Inactive ALPRAZOLAM 0.25 MG ORAL TABLET 1 tablet by mouth every 8 hours as needed for stress ALPRAZOLAM 0.25 MG ORAL TABLET 089010 ALPRA ZOLAM Inactive FLONASE 50 MCG/ACT NASAL SUSPENSION 1 spray each nostr il twice daily for allergies and runny nose until gone FLON ASE 50 MCG/ACT NASAL SUSPENSION 0586431 FLUTICASONE PROPIONATE Inactive PREDNISONE 20 MG ORAL TABLET 1 tablet daily for airway inflammat ion PREDNISONE 20 MG ORAL TABLET 165737 PREDNISONE Draper ctive NAPROXEN 500 MG ORAL TABLET Take 1 tab BID NAPROXEN 500 MG ORAL TABLET 025737 NAPROXEN Inactive ZOLOFT 50 MG ORAL TABLET 1 tablet by mouth daily 12/08 ZOLOFT 50 MG ORAL TABLET 010732 SERTRALINE HCL Inactive LOMOTIL 2.5-0.025 MG ORAL TABLET 1 tab po four times a day as needed for diarrhea LOMOTIL 2.5-0.025 MG ORAL TABLET 1462943 DIPHENOXYLATE-ATROPINE Inactive CETIRIZINE HCL 10 MG ORAL TABLET 1 po qd PRN Allergies CETIRIZINE HCL 10 MG ORAL TABLET 6034407 CETIRIZINE HCL Inactiv e TUSSIONEX PENNKINETIC ER 10-8 MG/5ML ORAL SUSPENSION E XTENDED RELEASE 5ml po q12hr PRN Cough TUSSIONEX PENNKINETI C ER 10-8 MG/5ML ORAL SUSPENSION EXTENDED RELEASE HYDROCOD POLST-CHLORPHEN POLST I nactive NEXPLANON IMPLANT right arm subcutaneously NEXPLANON IMPLANT ETONOGESTREL IMPL Inactive PROTONIX 40 MG ORAL TABLET DELAYED RELEASE 1 po q a.m. PROTONIX 40 MG ORAL TABLET DELAYED RELEASE 933754 PANTOPRAZOLE SODI UM Inactive CHERATUSSIN AC 100-10 MG/5ML ORAL SYRUP 1 tsp by mouth every 4 hours as needed for cough CHERATUSSIN AC 100-10 MG/5ML ORAL SYRUP 9 73118 GUAIFENESIN-CODEINE Inactive GUAIFENESIN DM 400-20 MG ORAL [...] TID 08/05 AMOXICILLIN 500 MG ORAL TABLET 923726 AMOXICILLIN Inactive AMOXICILLIN 500 MG ORAL CAPSULE 1 tab by mouth 3 times daily 201 11/24/09 AMOXICILLIN 500 MG ORAL CAPSULE 696729 AMOXICILLIN Inactive ZITHROMAX 250 MG ORAL TABLET 2 po today, then 1 po q days 2-5 20 09/23/25 ZITHROMAX 250 MG ORAL TABLET 329833 AZITHROMYCIN Arlen ctive ZITHROMAX 250 MG ORAL TABLET 2 po today, then 1 po q days 2-5 20 10/03/08 ZITHROMAX 250 MG ORAL TABLET 999021 AZITHROMYCIN Arlen ctive AZITHROMYCIN 500 MG ORAL TABLET 1 PO q day x 6 days 03/02/23 AZITHROMYCIN 500 MG ORAL TABLET 7087473 AZITHROMYCIN Inactive BACTRIM 400-80 MG ORAL TABLET take one po BID BACTRIM 400- 80 MG ORAL TABLET 814560 SULFAMETHOXAZOLE-TRIMETHOPRIM Inactive AZITHROMYCIN 250 MG ORAL TABLET 2 po qd x 1 day, then 1 po q d x 4 days AZITHROMYCIN 250 MG ORAL TABLET 000760 AZITHROMY ALLISON Inactive PREDNISONE 20 MG ORAL TABLET 2 tabs daily for 3 days, 1 tab daily for 3 days, 1/2 tab daily for 2 days PREDNISONE 20 MG ORAL T ABLET 201766 PREDNISONE Inactive ZITHROMAX 250 MG ORAL TABLET 2 po today, then 1 po q days 2-5 20 06/08/16 ZITHROMAX 250 MG ORAL TABLET 982785 AZITHROMYCIN Arlen ctive FLAGYL 500 MG ORAL TABLET 1 tablet by mouth two times daily 2014 FLAGYL 500 MG ORAL TABLET 211521 METRONIDAZOLE Inacti ve AUGMENTIN 875-125 MG ORAL TABLET 1 tab by mouth twice daily with food AUGMENTIN 875-125 MG ORAL TABLET 000528 AMOXICIL ELSA-POT CLAVULANATE Inactive NAPROXEN 500 MG ORAL TABLET one tab PO BID NAPROXEN 500 MG ORAL TABLET 476673 NAPROXEN Inactive PREDNISONE 20 MG ORAL TABLET 2 tabs daily for 3 days, 1 tab daily for 3 days, 1/2 tab daily for 2 days PREDNISONE 20 MG ORAL T ABLET 634941 PREDNISONE Inactive AZITHROMYCIN 250 MG ORAL TABLET 2 po qd x 1 day, then 1 po q d x 4 days AZITHROMYCIN 250 MG ORAL TABLET 874280 AZITHROMY ALLISON Inactive PREDNISONE 20 MG ORAL TABLET 2 tabs daily for 3 days, 1 tab daily for 3 days, 1/2 tab daily for 2 days PREDNISONE 20 MG ORAL T ABLET 354098 PREDNISONE Inactive ZITHROMAX Z-EMIL 250 MG ORAL TABLET 2 today, then 1 daily for 4 d ays ZITHROMAX Z-EMIL 250 MG ORAL TABLET 207659 AZITHROMYCIN Inactive CEFDINIR 300 MG ORAL CAPSULE [...] days PREDNISONE 20 MG ORAL T ABLET 595274 PREDNISONE Inactive BACTRIM DS 800-160 MG ORAL TABLET 1 tab by mouth twice daily 201 05/02/30 BACTRIM DS 800-160 MG ORAL TABLET 268523 TRIMETHOPRIM-SULFAMETHOXAZOLE Inactive ZITHROMAX Z-EMIL 250 MG ORAL TABLET 2 today, then 1 daily for 4 d ays ZITHROMAX Z-EMIL 250 MG ORAL TABLET 885611 AZITHROMYCIN Inactive TAMIFLU 75 MG ORAL CAPSULE 1 po BID x 5 days 0 TAMIFLU 75 MG ORAL CAPSULE 642509 OSELTAMIVIR PHOSPHATE Inactive CEFDINIR 300 MG ORAL CAPSULE 1 po BID x 10 days 01/03 CEFDINIR 300 MG ORAL CAPSULE 105319 CEFDINIR Inactive ZITHROMAX Z-EMIL 250 MG TABS Take two tablets today and then 1 tablet daily for 4 days ZITHROMAX Z-EMIL 250 MG TABS 576502 AZITHROM YCIN Inactive Advance Directives Directive Description [...] Negative Encounters Code Encounter Date Provider Facility CPT-70041 [id number] Vst-Est Level IV 20:50:21 C DT Arie Casper MD [facility]-73841 Level 3 Est. Patient 11:49:34 ADJUNCT PROFESSOR OF ENGLISH Jessica boyd [facility]-00032 Level 3 Est. Patient 14:55:50 ADJUNCT PROFESSOR OF ENGLISH Jose Zhong MD [facility]-89873 Level 3 Est. Patient 10:21:41 ADJUNCT PROFESSOR OF ENGLISH Arie mcqueen MD [facility]-17751 Level 3 Est. Patient 11:35:15 ADJUNCT PROFESSOR OF ENGLISH Arie mcqueen MD [facility]-19065 Level 3 Est. Patient 15:40:28 CDT Brii Are [facility]-41192 Level 3 Est. Patient 16:40:36 CDT Arie mcqueen MD [facility]-54140 Level 4 Est. Patient 15:29:22 ADJUNCT PROFESSOR OF ENGLISH Arie mcqueen MD [facility]-46704 Level 3 Est. Patient 15:18:16 ADJUNCT PROFESSOR OF ENGLISH Jono black DO [facility]-66884 Level 4 Est. Patient 12:08:40 ADJUNCT PROFESSOR OF ENGLISH Brii Are ll [facility]-04715 Level 3 Est. Patient 09:24:42 CDT Brii Are ll [facility]-51177 Level 3 Est. Patient 09:12:56 CDT Arie mcqueen MD [facility]-56201 Level 3 Est. Patient 16:40:54 CDT Jose Zhong MD [facility] CPT-73479 Level 2 Est. Patient 13:01:13 CDT Brii Are ll [employer] SERVICE MECHANIC [facility] CPT-26768 Level 3 Est. Patient 11:55:30 ADJUNCT PROFESSOR OF ENGLISH Jono black DO [facility] CPT-65641 Level 3 Est. Patient 09:52:36 ADJUNCT PROFESSOR OF ENGLISH Brii Are ll AUT[employer] BODY SERVICE MECHANIC [facility] CPT-74174 Level 3 Est. Patient 16:25:33 ADJUNCT PROFESSOR OF ENGLISH Rich Rosales MD [facility] CPT-81719 Level 3 Est. Patient 20:33:55 CDT Arie mcqueen MD [facility]-03225 Level 3 Est. Patient 14:18:20 CDT Rich Rosales MD [facility] CPT-82310 Level 4 Est. Patient 09:34:31 CDT Arie mcqueen MD [facility]-81792 Level 3 Est. Patient 09:08:55 ADJUNCT PROFESSOR OF ENGLISH Liliana vincent MD PhD [facility] CPT-42481 Level 3 Est. Patient 16:44:07 ADJUNCT PROFESSOR OF ENGLISH Arie mcqueen MD [facility] CPT-48230 Level 3 Est. Patient 10:44:27 CDT Arie mcqueen MD [facility]-61725 Level 3 Est. Patient 08:55:41 CDT Jose Zhong MD [facility] CPT-01080 Level 3 Est. Patient 18:37:31 CDT Liliana vincent MD PhD [facility] CPT-26154 Level 3 Est. Patient 14:28:23 CDT Abelardo HERNANDEZ [facility] CPT-20393 Level 3 Est. Patient 15:18:13 ADJUNCT PROFESSOR OF ENGLISH Arie mcqueen MD [facility] CPT-93208 Level 3 Est. Patient 10:11:29 ADJUNCT PROFESSOR OF ENGLISH Arie mcqueen MD [facility] CPT-77982 Level 3 Est. Patient 10:55:57 ADJUNCT PROFESSOR OF ENGLISH Jono black DO [facility] CPT-82527 Level 3 Est. Patient 17:29:05 CDT Arie mcqueen MD [facility] Procedures Code Procedure Name Date Entry Date Standard Desc ription CPT-10467 Nexplanon Removal 15:40:28 CDT CPT-03918 Sono transvag pelvis non OB uterus ovari es cervix - XRAY USE ONLY 08:58:14 ADJUNCT PROFESSOR OF ENGLISH CPT-34632 UA w micro - LAB USE ONLY 16:04:56 ADJUNCT PROFESSOR OF ENGLISH 2015 CPT-83144 Wet Prep/GEN - LAB USE ONLY 16:04:56 ADJUNCT PROFESSOR OF ENGLISH 20 08/10/29 CPT-16284 First Vx - Ix admin via ID I M or jet injects without counseling by physician 16:57:10 CDT CPT-76849 Fluzone Preservative Free Intramuscular Suspension 16:57:10 CDT CPT-J0696 Rocephin 1000 mg (Ceftriaxone) 11:49:23 CDT CPT-J1040 Depo Medrol 80 mg (Methyl Prednisolone A cetate) 11:49:23 CDT CPT-J1100 Decadron 8mg (Dexamethasone) 11:49:23 CDT 2 CPT-38838 Abx/Therapy Injection 11:49:23 CDT CPT-13571 Abx/Therapy Injection 11:49:23 CDT CPT-39228 Abd compl w upright 09:07:26 ADJUNCT PROFESSOR OF ENGLISH CPT-32405 Ear Wash 16:12:47 ADJUNCT PROFESSOR OF ENGLISH CPT-OV Office Visit 11:12:01 CDT CPT-OV Office Visit 15:30:23 CDT CPT-79498 Sono pelvis non OB uterus ovaries cervix 15:50:44 CDT CPT-54733 Hand comp min 3V 16:42:32 CDT CPT-64244 Abd compl w upright 12:17:01 CDT CPT-84395 Nexplanon Placement 15:07:39 ADJUNCT PROFESSOR OF ENGLISH CPT-02904 Removal of IUD 15:07:39 ADJUNCT PROFESSOR OF ENGLISH CPT-11628 TB Tubersol 12:09:32 CDT CPT-69633 TB Tubersol 13:55:43 CDT
--- OUTSIDE RECORDS SUMMARY | 2020-03-03 08:06 | XMS REPORT | Clinical Summary ---
Author Author Admin, Diamante Marcelo Organization [facility] Address Unknown Phone Unavailable [...] without mention of infection Sinusitis 461.9 Active iRch Rosales MD Acute sinusitis, unspecified Cerumen impaction, right 380.4 Active Alex isamar Rosales MD Impacted cerumen Sore throat 462 Active Nilam Raida A cute pharyngitis Nausea 787.02 Active Brii Larson TECTONOPHYSICIST Nausea alone URI 465.9 Active Jono Gagnon DO Acu te upper respiratory infections of unspecified site Allergic rhinitis 477.9 Active Brii Christianson PRN Allergic rhinitis, cause unspecified Abdominal pain, right lower quadrant 789.03 Active Jose Zhong MD Abdominal pain, right lower quadrant Urinary frequency 788.41 Inactive Roseann Crawford Urinary frequency Urinary frequency 788.41 Active 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, CAR [employer] Urinary frequency Sinusitis - acute 461.9 Active Brii Christianson PRN Acute sinusitis, unspecified Anxiety with depression 300.4 Active Glenn Larson TECTONOPHYSICIST Dysthymic disorder URI 465.9 Active Jono Gagnon DO Acu te upper respiratory infections of unspecified site Vaginal bleeding 623.8 Active Brii MARROQUIN RN Other specified noninflammatory disorders of vagina High risk sexual behavior V69.2 Active Arie Casper MD High-risk sexual behavior GERD 530.81 Active Arie Casper MD Esophageal reflux Encounter for surveillance of implantable subdermal contraceptiv e Active Brii Neo TECTONOPHYSICIST Vaginal bleeding 623.8 Active Arie Casper MD [...] 1 po q a.m. PANTOPRAZO LE SODIUM 32681306604 No Longer Active Arie Casper MD Active BACTRIM DS 800-160 MG TAB 1 tab by mouth twice daily 2 TRIMETHOPRIM-SULFAMETHOXAZOLE 98991640326 No Longer Active Roseann Crawford Active NEXPLANON IMPL right arm subcutaneously ETONOGE STREL IMPL 08081817566 No Longer Active Brii Larson APRN Active TUSSIONEX PENNKINETIC ER 10-8 MG/5ML LQCR 5ml po q12hr PRN Cough HYDROCOD POLST-CHLORPHEN POLST 12301321204 No Longer Active Brii Larson APRN Active CETIRIZINE HCL 10 MG ORAL TABS 1 po qd PRN Allergies 2 CETIRIZINE HCL 48900906098 No Longer Active Brii Larson APRN Ac tive PREDNISONE 20 MG TAB 2 tabs daily for 3 days, 1 t ab daily for 3 days, 1/2 tab daily for 2 days PREDNISONE 07282781191 No Longer Active Arie Casper MD Active LOMOTIL 2.5-0.025 MG TAB 1 tab po four times a day as needed for diarrhea DIPHENOXYLATE-ATROPINE 58627666439 No Longer Active Fozia Casper MD Active ZOLOFT 50 MG TAB 1 tablet by mouth daily SERTRA LINE HCL 68521624379 No Longer Active Arie Casper MD Active NAPROXEN 500 MG TAB Take 1 tab BID NAPROXEN 332 69632104 No Longer Active Arie Casper MD Active CEFDINIR 300 MG CAPS 1 po BID x 10 days CEFDINI R 45907678727 No Longer Active Brii Larson APRN Active PREDNISONE 20 MG TAB 1 tablet daily for airway inflammation 2015 PREDNISONE 13031090214 No Longer Active Brii Larson APRN Active CEFDINIR 300 MG CAPS 1 po BID x 10 days CEFDINI R 99447826421 No Longer Active Jono Gagnon DO Active FLONASE 50 MCG/ACT SUSP 1 spray each nostril twice d aily for allergies and runny nose until gone FLUTICASONE PROPIONATE No Longe r Active Jono Gagnon DO Active ALPRAZOLAM 0.25 MG TAB 1 tablet by mouth every 8 hours as ne eded for stress ALPRAZOLAM 29682477269 No Longer Active Jono Gagnon DO Active ZITHROMAX Z-EMIL 250 MG TABS 2 today, then 1 daily for 4 days 201 03/31/18 AZITHROMYCIN 13259101717 No Longer Active Arie Casper MD Active PREDNISONE 20 MG TAB 2 tabs daily for 3 days, 1 t ab daily for 3 days, 1/2 tab daily for 2 days PREDNISONE 39452197854 No Longer Active Brii Larson APRN Active PREDNISONE 20 MG TAB 1 tablet twice daily for 2 d ays, then 1 tablet once daily for 2 days PREDNISONE 02876986718 No Longer Active Brii Larson APRN Active PROMETHAZINE HCL 12.5 MG TABS 1 tablet by mouth every 6 hours as needed for nausea/vomiting PROMETHAZINE HCL 60828525619 No Longe r Active Jono Gagnon DO Active CITRATE OF MAGNESIA ORAL SOLN 1 bottle today for constipation 20 07/10/15 MAGNESIUM CITRATE 15647109705 No Longer Active Jono Gagnon DO Active ZOFRAN 4 MG ORAL TABS 1 TAB PO Q 6 HRS PRN NAUSEA 2014 ONDANSETRON HCL 30227667927 No Longer Active Brii Larson APRN A ctive LOMOTIL 2.5-0.025 MG TAB 1 to 2 four times a day as needed f or diarrhea DIPHENOXYLATE-ATROPINE 60368794247 No Longer Active January Larson APRN Active AMOXICILLIN 500 MG TABS 2 tabs twice a day for 10 days AMOXICILLIN 11320389324 No Longer Active Brii Larson APRN Acti ve CYCLOBENZAPRINE HCL 10 MG TABS 1/2 - 1 tablet by mouth three times daily as needed for muscle spasm/pain CYCLOBENZAPRINE HCL 39701207774 No Longer Active Arie Casper MD Active LOMOTIL 2.5-0.025 MG TABS 1 to 2 four times a day as needed for diarrhea DIPHENOXYLATE-ATROPINE 56720490136 No Longer Active Fozia Casper MD Active MACROBID 100 MG CAP 1 cap by mouth twice daily NITROFURANTOIN MONOHYD MACRO 30790539799 No Longer Active Arie Casper MD Active ZYRTEC ALLERGY 10 MG CAPS 1 po qd CETIRIZINE HCL 75028740856 No Longer Active Arie Casper MD Active AZITHROMYCIN 250 MG TABS 2 po qd x 1 day, then 1 po qd x 4 days AZITHROMYCIN 06156069407 No Longer Active Jillina Frazell TECTONOPHYSICIST Active PREDNISONE 20 MG TAB 2 tabs daily for 3 days, 1 t ab daily for 3 days, 1/2 tab daily for 2 days PREDNISONE 93887044421 No Longer Active Jillina Frazell TECTONOPHYSICIST Active PROMETHAZINE HCL 25 MG TABS 1 four times a day as needed for vomiting PROMETHAZINE HCL 50238248028 No Longer Active Myrna Roberto MD Active BACTRIM DS 800-160 MG TABS 1 twice a day SULFAMETHOXAZOLE-TRIMETHOPRIM 70886069119 No Longer Active Myrna Roberto MD Active VICKS DAYQUIL SEVERE COLD/FLU TABS 1 tab every 6 hours prn 12/10 [id number] TABS 83716680227 No Longer Active Myrna leigh MD Active GUAIFENESIN-CODEINE 100-10 MG/5ML ORAL SYRP 2 tsp every 6 hours prn GUAIFENESIN-CODEINE 92542353575 No Longer Active Myrna Roberto MD Active NAPROXEN 500 MG TAB one tab PO BID NAPROXEN 332 67078721 No Longer Active Myrna Roberto MD Active AUGMENTIN 875-125 MG TAB 1 tab by mouth twice daily with food 08/12/16 AMOXICILLIN-POT CLAVULANATE 10308627267 No Longer Active Liliana Estrada MD PhD Active AMOXICILLIN 500 MG CAP 1 tab by mouth 3 times daily 08/12/16 AMOXICILLIN 36035615203 No Longer Active Liliana Estrada MD PhD Acti ve TESSALON PERLES 100 MG CAP 1 tablet by mouth 3 times daily 11/01 BENZONATATE 46494790060 No Longer Active Liliana Estrada MD PhD Active FLAGYL 500 MG TAB 1 tablet by mouth two times daily 07/11/29 METRONIDAZOLE 41816092084 No Longer Active Nilamnory Weber Active ZITHROMAX 250 MG TAB 2 po today, then 1 po q days 2-5 AZITHROMYCIN 13804005445 No Longer Active Arie Casper MD Acti ve VITAMINS 0.8 MG TABS take 1 tab po qday 08/08 [id number] 39619612930 No Longer Active Arie Casper MD Active IBUPROFEN 800 MG TABS take one po Q 8 hours IBU PROFEN 99754168592 No Longer Active Arie Casper MD Active [facility] TUSSIN COUGH/COLD CF 5-10-100 MG/5ML LIQD 2 teaspoons ev eliud 4 hours [id number] 52866206002 No Longer Active Blaine Casper MD Active COMTREX COLD/COUGH DAY/NITE MS 5-2-10-325 MG MISC 2 caps deja ry 4 hours [id number] 80338328701 No Longer Active Da aleksandra Casper MD Active CHLORASEPTIC MAX SORE THROAT 15-10 MG LOZG 1 every 2 hours prn 2 BENZOCAINE-MENTHOL 75362543831 No Longer Active Arie M [place] M D Active PREDNISONE 20 MG TAB 2 tabs daily for 3 days, 1 t ab daily for 3 days, 1/2 tab daily for 2 days PREDNISONE 82476425230 No Longer Active Jose Zhong MD Active AZITHROMYCIN 250 MG TABS 2 po qd x 1 day, then 1 po qd x 4 days AZITHROMYCIN 34917980358 No Longer Active Jose Zhong MD Active ZOFRAN ODT 4 MG TBDP 1 po q6hr PRN Nausea ONDAN SETRON 85299217716 No Longer Active Rich Rosales MD Active ZOFRAN 4 MG TABS 1 tablet every 4 hours ONDANSE JERRELL HCL 73030577054 No Longer Active Rich Rosales MD Active MUCINEX 600 MG [id number] Take 1-2 tablets every 12 hours GUAIFENESIN 96767046787 No Longer Active Rich Rosales MD Activ e BACTRIM 400-80 MG TABS take one po BID SULFAMETHOXAZOLE-TRIMETHOPRIM 90037857055 No Longer Active Abelardo HERNANDEZ Active AZITHROMYCIN 500 MG TABS 1 PO q day x 6 days AZ ITHROMYCIN 08507771431 No Longer Active Tin HERNANDEZ Active ZITHROMAX 250 MG TAB 2 po today, then 1 po q days 2-5 AZITHROMYCIN 96914101897 No Longer Active Arie Casper MD Acti ve ZITHROMAX 250 MG TAB 2 po today, then 1 po q days 2-5 AZITHROMYCIN 52275183622 No Longer Active Arie Casper MD Acti ve AMOXICILLIN 500 MG CAP 1 tab by mouth 3 times daily 09/23/20 AMOXICILLIN 13935083089 No Longer Active Arie Casper MD Acti ve BACTRIM DS 800-160 MG TAB 1 tab by mouth twice daily 2 TRIMETHOPRIM-SULFAMETHOXAZOLE 61877278756 No Longer Active Arie Casper MD Active AMOXICILLIN 500 MG TABS take 1 tab po TID AMOXI CILLIN 48753089166 No Longer Active Arie Casper MD Active BACTRIM DS 800-160 MG TAB 1 tab by mouth twice daily 2 BACTRIM DS 800-160 MG TAB 19821226 TRIMETHOPRIM-SULFAMETHOXAZOLE Inac tive MUCINEX 600 MG [id number] Take 1-2 tablets every 12 hours MUCINEX 600 MG [id number] GUAIFENESIN Inactive ZOFRAN 4 MG TABS 1 tablet every 4 hours ZOFRAN 4 MG TABS 618080 ONDANSETRON HCL Inactive ZOFRAN ODT 4 MG TBDP 1 po q6hr PRN Nausea ZOFRAN ODT 4 MG TBDP 783663 ONDANSETRON Inactive CHLORASEPTIC MAX SORE THROAT 15-10 MG LOZG 1 every 2 hours prn 2 /04/30 CHLORASEPTIC MAX SORE THROAT 15-10 MG LOZG BENZO ARINA-MENTHOL Inactive COMTREX COLD/COUGH DAY/NITE MS 5-2-10-325 MG MISC 2 caps deja ry 4 hours COMTREX COLD/COUGH DAY/NITE MS 5-2-10-325 MG MIS C [id number] Inactive [facility] TUSSIN COUGH/COLD CF 5-10-100 MG/5ML LIQD 2 teaspoons ev eliud 4 hours [facility] TUSSIN COUGH/COLD CF 5-10-100 MG/5ML LIQD [id number] Inactive IBUPROFEN 800 MG TABS take one po Q 8 hours IBUPROFEN 800 MG TABS IBUPROFEN Inactive VITAMINS 0.8 MG TABS take 1 tab po qday 08/08 VITAMINS 0.8 MG TABS [id number] Inactive TESSALON PERLES 100 MG CAP 1 tablet by mouth 3 times daily 11/01 TESSALON PERLES 100 MG CAP [id number] BENZONATATE Inact zaid AMOXICILLIN 500 MG CAP 1 tab by mouth 3 times daily 08/12/16 AMOXICILLIN 500 MG CAP 591314 AMOXICILLIN Inactive GUAIFENESIN-CODEINE 100-10 MG/5ML ORAL SYRP 2 tsp every 6 hours prn GUAIFENESIN-CODEINE 100-10 MG/5ML ORAL SYRP 731077 GUAIFENESIN-CODEINE Inactive VICKS DAYQUIL SEVERE COLD/FLU TABS 1 tab every 6 hours prn 12/10 VICKS DAYQUIL SEVERE COLD/FLU TABS PHENYLEPHRINE -DM-GG-APAP TABS Inactive BACTRIM DS 800-160 MG TABS 1 twice a day BACTRIM DS 800- 160 MG TABS 053617 SULFAMETHOXAZOLE-TRIMETHOPRIM Inactive PROMETHAZINE HCL 25 MG TABS 1 four times a day as needed for vomiting PROMETHAZINE HCL 25 MG TABS 990398 PROMETHAZINE HCL Inactive ZYRTEC ALLERGY 10 MG CAPS 1 po qd ZY RTEC ALLERGY 10 MG CAPS CETIRIZINE HCL Inactive MACROBID 100 MG CAP 1 cap by mouth twice daily MACROBID 100 MG CAP 3875278 NITROFURANTOIN MONOHYD MACRO Inactive LOMOTIL 2.5-0.025 MG TABS 1 to 2 four times a day as needed for diarrhea LOMOTIL 2.5-0.025 MG TABS 8321903 DIPHENOXYLATE-A TROPINE Inactive CYCLOBENZAPRINE HCL 10 MG TABS 1/2 - 1 tablet by mouth three times daily as needed for muscle spasm/pain CYCLOBENZAP RINE HCL 10 MG TABS 023651 CYCLOBENZAPRINE HCL Inactive AMOXICILLIN 500 MG TABS 2 tabs twice a day for 10 days AMOXICILLIN 500 MG TABS 745007 AMOXICILLIN Inactive LOMOTIL 2.5-0.025 MG TAB 1 to 2 four times a day as needed f or diarrhea LOMOTIL 2.5-0.025 MG TAB 3014971 DIPHENOXYLATE-AT ROPINE Inactive ZOFRAN 4 MG ORAL TABS 1 TAB PO Q 6 HRS PRN NAUSEA 2014 ZOFRAN 4 MG ORAL TABS 401792 ONDANSETRON HCL Inactive CITRATE OF MAGNESIA ORAL SOLN 1 bottle today for constipation 20 07/10/15 CITRATE OF MAGNESIA ORAL SOLN 3993850 MAGNESIUM CITRATE Inactive PROMETHAZINE HCL 12.5 MG TABS 1 tablet by mouth every 6 hours as needed for nausea/vomiting PROMETHAZINE HCL 12.5 MG TABS 904472 PROMETHAZINE HCL Inactive PREDNISONE 20 MG TAB 1 tablet twice daily for 2 d ays, then 1 tablet once daily for 2 days PREDNISONE 20 MG TAB 063614 PREDNISONE Inac tive ALPRAZOLAM 0.25 MG TAB 1 tablet by mouth every 8 hours as ne eded for stress ALPRAZOLAM 0.25 MG TAB 902707 ALPRAZOLAM Inact zaid FLONASE 50 MCG/ACT SUSP 1 spray each nostril twice d aily for allergies and runny nose until gone FLONASE 50 MCG/ACT SUSP 8666944 FLUTICASONE PROPIONATE Inactive PREDNISONE 20 MG TAB 1 tablet daily for airway inflammation 2015 PREDNISONE 20 MG TAB 444316 PREDNISONE Inactive NAPROXEN 500 MG TAB Take 1 tab BID NAPROXEN 500 MG TAB 452504 NAPROXEN Inactive ZOLOFT 50 MG TAB 1 tablet by mouth daily ZOLOFT 50 MG TAB 546845 SERTRALINE HCL Inactive LOMOTIL 2.5-0.025 MG TAB 1 tab po four times a day as needed for diarrhea LOMOTIL 2.5-0.025 MG TAB 3535628 DIPHENOXYLATE-AT ROPINE Inactive CETIRIZINE HCL 10 MG ORAL TABS 1 po qd PRN Allergies 2 CETIRIZINE HCL 10 MG ORAL TABS 4697442 CETIRIZINE HCL Inactive TUSSIONEX PENNKINETIC ER 10-8 MG/5ML LQCR 5ml po q12hr PRN Cough TUSSIONEX PENNKINETIC ER 10-8 MG/5ML LQCR HYDROCOD POLST-CHLORPHEN POLST Inactive NEXPLANON IMPL right arm subcutaneously NEXPLANO N IMPL ETONOGESTREL IMPL Inactive PROTONIX 40 MG ORAL TBEC 1 po q a.m. PRO TONIX 40 MG ORAL TBEC 173572 PANTOPRAZOLE SODIUM Inactive AMOXICILLIN 500 MG TABS take 1 tab po TID AMOXICILLIN 500 MG TABS 392918 AMOXICILLIN Inactive AMOXICILLIN 500 MG CAP 1 tab by mouth 3 times daily 09/23/20 AMOXICILLIN 500 MG CAP 181365 AMOXICILLIN Inactive ZITHROMAX 250 MG TAB 2 po today, then 1 po q days 2-5 ZITHROMAX 250 MG TAB 841492 AZITHROMYCIN Inactive ZITHROMAX 250 MG TAB 2 po today, then 1 po q days 2-5 ZITHROMAX 250 MG TAB 601940 AZITHROMYCIN Inactive AZITHROMYCIN 500 MG TABS 1 PO q day x 6 days 3 AZITHROMYCIN 500 MG TABS 4924110 AZITHROMYCIN Inactive BACTRIM 400-80 MG TABS take one po BID BA CTRIM 400-80 MG TABS 669162 SULFAMETHOXAZOLE-TRIMETHOPRIM Inactive AZITHROMYCIN 250 MG TABS 2 po qd x 1 day, then 1 po qd x 4 days AZITHROMYCIN 250 MG TABS 778587 AZITHROMYCIN Inactiv e PREDNISONE 20 MG TAB 2 tabs daily for 3 days, 1 t ab daily for 3 days, 1/2 tab daily for 2 days PREDNISONE 20 MG TAB 379470 PREDNISON E Inactive ZITHROMAX 250 MG TAB 2 po today, then 1 po q days 2-5 ZITHROMAX 250 MG TAB 602127 AZITHROMYCIN Inactive FLAGYL 500 MG TAB 1 tablet by mouth two times daily 07/11/29 FLAGYL 500 MG TAB 094893 METRONIDAZOLE Inactive AUGMENTIN 875-125 MG TAB 1 tab by mouth twice daily with food 08/12/16 AUGMENTIN 875-125 MG TAB 732982 AMOXICILLIN-POT CLAVULA ANGELO Inactive NAPROXEN 500 MG TAB one tab PO BID NAPROXEN 500 MG TAB 779429 NAPROXEN Inactive PREDNISONE 20 MG TAB 2 tabs daily for 3 days, 1 t ab daily for 3 days, 1/2 tab daily for 2 days PREDNISONE 20 MG TAB 199296 PREDNISON E Inactive AZITHROMYCIN 250 MG TABS 2 po qd x 1 day, then 1 po qd x 4 days AZITHROMYCIN 250 MG TABS 850993 AZITHROMYCIN Inactiv e PREDNISONE 20 MG TAB 2 tabs daily for 3 days, 1 t ab daily for 3 days, 1/2 tab daily for 2 days PREDNISONE 20 MG TAB 774911 PREDNISON E Inactive ZITHROMAX Z-EMIL 250 MG TABS 2 today, then 1 daily for 4 days 201 03/31/18 ZITHROMAX Z-EMIL 250 MG TABS 059238 AZITHROMYCIN Inac tive CEFDINIR 300 MG CAPS 1 po BID x 10 days C EFDINIR 300 MG CAPS 812610 CEFDINIR Inactive CEFDINIR 300 MG CAPS 1 po BID x 10 days C EFDINIR 300 MG CAPS 20030127 CEFDINIR Inactive PREDNISONE 20 MG TAB 2 tabs daily for 3 days, 1 t ab daily for 3 days, 1/2 tab daily for 2 days PREDNISONE 20 MG TAB 085042 PREDNISON E Inactive BACTRIM DS 800-160 MG TAB 1 tab by mouth twice daily 2 BACTRIM DS 800-160 MG TAB 446997 TRIMETHOPRIM-SULFAMETHOXAZOLE Inac tive Advance Directives Directive Description Start [...] Unit Range Description Lab Report: CBC, Quant CG - Hematology leukocyte count, blood 7.8 10^3/MM^3 [...] 263 10^3/MM^3 10*3/mm3 142-424 Lab Report: Chlamydia/GC APTIMA/[id number] - Lab chlamydia DNA probe NOT DETECTED NOT DETECTED Lab Report: Chlamydia/GC [facility]TIMA/[id number] - Microbiology Neisseria gonorrhoeae DNA probe NOT [...] Negative Negati ve bilirubin, urine Negative Negative specific gravity, urine 1.025 1.000-1.030 appearance, urine Clear Clear urine color Yellow Colorless;Lightyellow;St raw;Yellow Encounters Code Encounter Date Provider Facility CPT-21267 Level 3 Est. Patient 11:35:15 CLINICAL NURSE SPECIALIST Arie mcqueen MD [facility] CPT-12272 Level 3 Est. Patient 15:40:28 CDT Steve [facility]-44444 Level 3 Est. Patient 16:40:36 CDT Arie mcqueen MD [facility] CPT-19877 Level 4 Est. Patient 15:29:22 CLINICAL NURSE SPECIALIST Arie mcqueen MD [facility] CPT-26644 Level 3 Est. Patient 15:18:16 CLINICAL NURSE SPECIALIST Jono black [facility] CPT-76291 Level 4 Est. Patient 12:08:40 CLINICAL NURSE SPECIALIST Steve [facility] CPT-78299 Level 3 Est. Patient 09:24:42 CDT Steve [facility] CPT-95924 Level 3 Est. Patient 09:12:56 CDT Arie mcqueen MD [facility] CPT-15077 Level 3 Est. Patient 16:40:54 CDT Jose Zhong MD [facility] CPT-22363 Level 2 Est. Patient 13:01:13 CDT Steve [facility]-19985 Level 3 Est. Patient 11:55:30 CLINICAL NURSE SPECIALIST Jono black [facility] CPT-93627 Level 3 Est. Patient 09:52:36 CLINICAL NURSE SPECIALIST Steve [facility] CPT-01082 Level 3 Est. Patient 16:25:33 CLINICAL NURSE SPECIALIST Rich Rosales MD [facility]-92063 Level 3 Est. Patient 20:33:55 CDT Arie mcqueen MD [facility]-42408 Level 3 Est. Patient 14:18:20 CDT Rich Rosales MD [facility]-65116 Level 4 Est. Patient 09:34:31 CDT Arie mcqueen MD [facility]-80418 Level 3 Est. Patient 09:08:55 CLINICAL NURSE SPECIALIST Liliana vincent MD PhD [facility]-42520 Level 3 Est. Patient 16:44:07 CLINICAL NURSE SPECIALIST Arie mcqueen MD [facility] CPT-90068 Level 3 Est. Patient 10:44:27 CDT Arie mcqueen MD [facility]-26515 Level 3 Est. Patient 08:55:41 CDT Jose Zhong MD [facility]-50388 Level 3 Est. Patient 18:37:31 CDT Liliana vincent MD PhD [facility]-03658 Level 3 Est. Patient 14:28:23 CDT Abelardo HERNANDEZ [facility]-47922 Level 3 Est. Patient 15:18:13 CLINICAL NURSE SPECIALIST Arie mcqueen MD [facility]-58404 Level 3 Est. Patient 10:11:29 CLINICAL NURSE SPECIALIST Arie mcqueen MD [facility]-38339 Level 3 Est. Patient 10:55:57 CLINICAL NURSE SPECIALIST Jono black DO [facility] CPT-15369 Level 3 Est. Patient 17:29:05 CDT Arie mcqueen MD [facility] Procedures Code Procedure Name Date Entry Date Standard Desc ription CPT-39043 Nexplanon Removal 15:40:28 CDT CPT-43062 Sono transvag pelvis non OB uterus ovari es cervix - XRAY USE ONLY 08:58:14 CLINICAL NURSE SPECIALIST CPT-05900 UA w micro - LAB USE ONLY 16:04:56 CLINICAL NURSE SPECIALIST 2015 CPT-00950 Wet Prep/GEN - LAB USE ONLY 16:04:56 CLINICAL NURSE SPECIALIST 20 08/10/29 CPT-71081 First Vx - Ix admin via ID I M or jet injects without counseling by physician 16:57:10 CDT CPT-98750 Fluzone Preservative Free Intramuscular Suspension 16:57:10 CDT CPT-J0696 Rocephin 1000 mg (Ceftriaxone) 11:49:23 CDT CPT-J1040 Depo Medrol 80 mg (Methyl Prednisolone A cetate) 11:49:23 CDT CPT-J1100 Decadron 8mg (Dexamethasone) 11:49:23 CDT 2 CPT-16461 Abx/Therapy Injection 11:49:23 CDT CPT-09899 Abx/Therapy Injection 11:49:23 CDT CPT-83609 Abd compl w upright 09:07:26 CLINICAL NURSE SPECIALIST CPT-43874 Ear Wash 16:12:47 CLINICAL NURSE SPECIALIST CPT-OV Office Visit 11:12:01 CDT CPT-OV Office Visit 15:30:23 CDT CPT-05786 Sono pelvis non OB uterus ovaries cervix 15:50:44 CDT CPT-63593 Hand comp min 3V 16:42:32 CDT CPT-32699 Abd compl w upright 12:17:01 CDT CPT-65024 Nexplanon Placement 15:07:39 CLINICAL NURSE SPECIALIST CPT-93491 Removal of IUD 15:07:39 CLINICAL NURSE SPECIALIST CPT-16793 TB Tubersol 12:09:32 CDT CPT-01810 TB Tubersol 13:55:43 CDT
--- OUTSIDE RECORDS SUMMARY | 2020-03-03 08:07 | XMS REPORT | Clinical Summary ---
[...] TAB one tab PO BID NAPROXEN 332 [id number] Active Myrna Roberto MD Active LOMOTIL 2.5-0.025 MG TABS 1 to 2 four times a day as needed for diarrhea DIPHENOXYLATE-ATROPINE 10245954132 Active Rich mcintosh MD Active PROMETHAZINE HCL 25 MG TABS 1 four times a day as needed for vomiting PROMETHAZINE HCL 83915396843 Active Rich Rosales MD Active BACTRIM DS 800-160 MG TABS 1 twice a day SULFAMETHOXAZOLE-TRIMETHOPRIM 29396032268 Active Rich Rosales MD Active AUGMENTIN 875-125 MG TAB 1 tab by mouth twice daily with food 20 08/12/16 AMOXICILLIN-POT CLAVULANATE 92045594857 No Longer Active Liliana Estrada MD PhD Active CYCLOBENZAPRINE HCL 10 MG TABS 1/2 - 1 tablet by mouth three times daily as needed for muscle spasm/pain CYCLOBENZAPRINE HCL 00378 827338 Active Liliana Estrada MD PhD Active GUAIFENESIN-CODEINE 100-10 MG/5ML ORAL SYRP 2 tsp every 6 hours prn GUAIFENESIN-CODEINE 48209501432 Active Liliana Estrada MD PhD Active VICKS DAYQUIL SEVERE COLD/FLU TABS 1 tab every 6 hours prn [id number] TABS 81646961439 Active Liliana Estrada MD PhD Active AMOXICILLIN 500 MG CAP 1 tab by mouth 3 times daily 08/12/16 AMOXICILLIN 84959586657 No Longer Active Liliana Estrada MD PhD Acti ve TESSALON PERLES 100 MG CAP 1 tablet by mouth 3 times daily 11/01 BENZONATATE 42540744245 No Longer Active Liliana Estrada MD PhD Active FLAGYL 500 MG TAB 1 tablet by mouth two times daily 07/11/29 METRONIDAZOLE 07631392689 No Longer Active Nilam Weber Active ZITHROMAX 250 MG TAB 2 po today, then 1 po q days 2-5 AZITHROMYCIN 03127630539 No Longer Active Arie Casper MD Acti ve VITAMINS 0.8 MG TABS take 1 tab po qday 08/08 [id number] 54751679095 No Longer Active Arie Casper MD Active IBUPROFEN 800 MG TABS take one po Q 8 hours IBU PROFEN 33840126179 No Longer Active Arie Casper MD Active [facility] TUSSIN COUGH/COLD CF 5-10-100 MG/5ML LIQD 2 teaspoons ev eliud 4 hours [id number] 63456087920 No Longer Active Blaine Casper MD Active COMTREX COLD/COUGH DAY/NITE MS 5-2-10-325 MG MISC 2 caps deja ry 4 hours [id number] 15639382616 No Longer Active Da aleksandra Casper MD Active CHLORASEPTIC MAX SORE THROAT 15-10 MG LOZG 1 every 2 hours prn 2 BENZOCAINE-MENTHOL 16400095052 No Longer Active Arie Marcelo Active PREDNISONE 20 MG TAB 2 tabs daily for 3 days, 1 t ab daily for 3 days, 1/2 tab daily for 2 days PREDNISONE 87120782415 No Longer Active Jose Zhong MD Active AZITHROMYCIN 250 MG TABS 2 po qd x 1 day, then 1 po qd x 4 days AZITHROMYCIN 26233458480 No Longer Active Jose Zhong MD Active ZOFRAN ODT 4 MG TBDP 1 po q6hr PRN Nausea ONDAN SETRON 33969013448 No Longer Active Rich Rosales MD Active ZOFRAN 4 MG TABS 1 tablet every 4 hours ONDANSE JERRELL HCL 68430048496 No Longer Active Rich Rosales MD Active MUCINEX 600 MG [id number] Take 1-2 tablets every 12 hours GUAIFENESIN 05693935960 No Longer Active Rich Rosales MD Activ e BACTRIM 400-80 MG TABS take one po BID SULFAMETHOXAZOLE-TRIMETHOPRIM 80278611783 No Longer Active Abelardo HERNANDEZ Active AZITHROMYCIN 500 MG TABS 1 PO q day x 6 days AZ ITHROMYCIN 09611196611 No Longer Active Tin HERNANDEZ Active ZITHROMAX 250 MG TAB 2 po today, then 1 po q days 2-5 AZITHROMYCIN 13348301731 No Longer Active Arie Casper MD Acti ve ZITHROMAX 250 MG TAB 2 po today, then 1 po q days 2-5 AZITHROMYCIN 13297404398 No Longer Active Arie Casper MD Acti ve AMOXICILLIN 500 MG CAP 1 tab by mouth 3 times daily 09/23/20 AMOXICILLIN 49000145148 No Longer Active Arie Casper MD Acti ve BACTRIM DS 800-160 MG TAB 1 tab by mouth twice daily 2 TRIMETHOPRIM-SULFAMETHOXAZOLE 47781727593 No Longer Active Arie Casper MD Active AMOXICILLIN 500 MG TABS take 1 tab po TID AMOXI CILLIN 85072660380 No Longer Active Arie Casper MD Active BACTRIM DS 800-160 MG TAB 1 tab by mouth twice daily 2 BACTRIM DS 800-160 MG TAB TRIMETHOPRIM-SULFAMETHOXAZOLE Inac tive MUCINEX 600 MG [id number] Take 1-2 tablets every 12 hours MUCINEX 600 MG [id number] GUAIFENESIN Inactive ZOFRAN 4 MG TABS 1 tablet every 4 hours ZOFRAN 4 MG TABS 051779 ONDANSETRON HCL Inactive ZOFRAN ODT 4 MG TBDP 1 po q6hr PRN Nausea ZOFRAN ODT 4 MG TBDP 842896 ONDANSETRON Inactive CHLORASEPTIC MAX SORE THROAT 15-10 MG LOZG 1 every 2 hours prn 2 014/04/30 CHLORASEPTIC MAX SORE THROAT 15-10 MG LOZG BENZO ARINA-MENTHOL Inactive COMTREX COLD/COUGH DAY/NITE MS 5-2-10-325 MG MISC 2 caps deja ry 4 hours COMTREX COLD/COUGH DAY/NITE MS 5-2-10-325 MG MIS C [id number] Inactive [facility] TUSSIN COUGH/COLD CF 5-10-100 MG/5ML LIQD 2 teaspoons ev eliud 4 hours [facility] TUSSIN COUGH/COLD CF 5-10-100 MG/5ML LIQD [id number] Inactive IBUPROFEN 800 MG TABS take one po Q 8 hours IBUPROFEN 800 MG TABS 487284 IBUPROFEN Inactive VITAMINS 0.8 MG TABS take 1 tab po qday 08/08 VITAMINS 0.8 MG TABS [id number] Inactive TESSALON PERLES 100 MG CAP 1 tablet by mouth 3 times daily 11/01 TESSALON PERLES 100 MG CAP 515795 BENZONATATE Inact zaid AMOXICILLIN 500 MG CAP 1 tab by mouth 3 times daily 08/12/16 AMOXICILLIN 500 MG CAP 652615 AMOXICILLIN Inactive AMOXICILLIN 500 MG TABS take 1 tab po TID AMOXICILLIN 500 MG TABS 532516 AMOXICILLIN Inactive AMOXICILLIN 500 MG CAP 1 tab by mouth 3 times daily 09/23/20 AMOXICILLIN 500 MG CAP 557038 AMOXICILLIN Inactive ZITHROMAX 250 MG TAB 2 po today, then 1 po q days 2-5 ZITHROMAX 250 MG TAB 0034557 AZITHROMYCIN Inactive ZITHROMAX 250 MG TAB 2 po today, then 1 po q days 2-5 ZITHROMAX 250 MG TAB 0023120 AZITHROMYCIN Inactive AZITHROMYCIN 500 MG TABS 1 PO q day x 6 days 3 AZITHROMYCIN 500 MG TABS 6032025 AZITHROMYCIN Inactive BACTRIM 400-80 MG TABS take one po BID BA CTRIM 400-80 MG TABS 970171 SULFAMETHOXAZOLE-TRIMETHOPRIM Inactive AZITHROMYCIN 250 MG TABS 2 po qd x 1 day, then 1 po qd x 4 days AZITHROMYCIN 250 MG TABS 9088515 AZITHROMYCIN Inactiv e PREDNISONE 20 MG TAB 2 tabs daily for 3 days, 1 t ab daily for 3 days, 1/2 tab daily for 2 days PREDNISONE 20 MG TAB 721821 PREDNISON E Inactive ZITHROMAX 250 MG TAB 2 po today, then 1 po q days 2-5 ZITHROMAX 250 MG TAB 0021252 AZITHROMYCIN Inactive FLAGYL 500 MG TAB 1 tablet by mouth two times daily 07/11/29 FLAGYL 500 MG TAB 960194 METRONIDAZOLE Inactive AUGMENTIN 875-125 MG TAB 1 tab by mouth twice daily with food 20 08/12/16 AUGMENTIN 875-125 MG TAB 124872 AMOXICILLIN-POT CLAVULA ANGELO Inactive Advance Directives Directive [...] 214 10^3/MM^3 10*3/mm3 142-424 Lab Report: Chlamydia/GC APTIMA/[id number] - Lab chlamydia DNA probe NOT DETECTED NOT DETECTED Lab Report: Chlamydia/GC APTIMA/[id number] - Microbiology Neisseria gonorrhoeae DNA probe NOT [...] 5.0-8.5 Encounters Code Encounter Date Provider Facility CPT-02870 Level 3 Est. Patient 14:18:20 CDT Rich Rosales MD [facility] CPT-79317 Level 4 Est. Patient 09:34:31 CDT Arie mcqueen MD [facility] [place] CPT-71340 Level 3 Est. Patient 09:08:55 [employer]ICAL [employer] Liliana vincent MD PhD [facility]-72818 Level 3 Est. Patient 16:44:07 ELECTRICAL W[employer] Arie mcqueen MD [facility] CPT-02694 Level 3 Est. Patient 10:44:27 CDT Arie mcqueen MD [facility] CPT-64238 Level 3 Est. Patient 08:55:41 CDT Jose Zhong MD [facility] CPT-89270 Level 3 Est. Patient 18:37:31 CDT Liliana vincent MD PhD [facility] CPT-35758 Level 3 Est. Patient 14:28:23 CDT Abelardo HERNANDEZ [facility] CPT-06316 Level 3 Est. Patient 15:18:13 E[employer]ICAL [employer] Arie mcqueen MD [facility] CPT-70783 Level 3 Est. Patient 10:11:29 E[employer]RICAL W[employer] Arie mcqueen MD [facility] CPT-45840 Level 3 Est. Patient 10:55:57 [employer]RICAL [employer]ER Jono black DO [facility] CPT-86169 Level 3 Est. 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
--- OUTSIDE RECORDS SUMMARY | 2020-03-03 08:07 | XMS REPORT | Clinical Summary ---
Author Author Admin, Diamante Marcelo Organization [employer] Address Unknown Phone Unavailable Allergies, Adverse Reactions, [...] cute pharyngitis Nausea 787.02 Active Brii Larson [employer] Nausea alone URI 465.9 Active Jono Gagnon [...] Anxiety with depression 300.4 Active Glenn Larson [employer] Dysthymic disorder URI 465.9 Active Jono Gagnon DO Acu te upper respiratory infections of unspecified site Vaginal bleeding 623.8 Active Brii MARROQUIN RN Other specified noninflammatory disorders of vagina BREAST CANCER ICD-V16.3 Inactive Jose Marcelo FH [...] SINUSITIS ICD-461.1 Inactive Meghan Estrada MD PhD Fever ICD-780.60 Inactive Liliana Estrada [...] MG TAB Take 1 tab BID NAPROXEN 382797753 15 Active Brii Larson APRN Active NEXPLANON IMPL Left arm subcutaneously ETONOGES TREL IMPL 78180427183 Active Brii Larson APRN Active CEFDINIR 300 MG CAPS 1 po BID x 10 days CEFDINI R 31615122277 No Longer Active Brii Larson APRN Active PREDNISONE 20 MG TAB 1 tablet daily for airway inflammation 2015 PREDNISONE 61405789313 No Longer Active Brii Larson APRN Active CEFDINIR 300 MG CAPS 1 po BID x 10 days CEFDINI R 87874203805 No Longer Active Jono Gagnon DO Active FLONASE 50 MCG/ACT SUSP 1 spray each nostril twice d aily for allergies and runny nose until gone FLUTICASONE PROPIONATE No Longe r Active Jono Gagnon DO Active ALPRAZOLAM 0.25 MG TAB 1 tablet by mouth every 8 hours as ne eded for stress ALPRAZOLAM 72183210640 No Longer Active Jono Gagnon DO Active ZOLOFT 50 MG TAB 1 tablet by mouth daily SERTRA LINE HCL 04087402162 Active Arie Casper MD Active LOMOTIL 2.5-0.025 MG TAB 1 tab po four times a day as needed for diarrhea DIPHENOXYLATE-ATROPINE 48168385578 Active Brii Larson APRN Active ZITHROMAX Z-EMIL 250 MG TABS 2 today, then 1 daily for 4 days 201 03/31/18 AZITHROMYCIN 04108449438 No Longer Active Arie Casper MD Active PROTONIX 40 MG ORAL TBEC 1 po q a.m. PANTOPRAZO LE SODIUM 92528964893 Active Carline Ochoa RPT,RMA Active PREDNISONE 20 MG TAB 2 tabs daily for 3 days, 1 t ab daily for 3 days, 1/2 tab daily for 2 days PREDNISONE 59418519694 No Longer Active Brii Larson APRN Active PREDNISONE 20 MG TAB 1 tablet twice daily for 2 d ays, then 1 tablet once daily for 2 days PREDNISONE 11779753761 No Longer Active Brii Larson APRN Active PROMETHAZINE HCL 12.5 MG TABS 1 tablet by mouth every 6 hours as needed for nausea/vomiting PROMETHAZINE HCL 13935229727 No Longe r Active Jono Gagnon DO Active CITRATE OF MAGNESIA ORAL SOLN 1 bottle today for constipation 20 07/10/15 MAGNESIUM CITRATE 57870041818 No Longer Active Jono Gagnon DO Active ZOFRAN 4 MG ORAL TABS 1 TAB PO Q 6 HRS PRN NAUSEA 2014 ONDANSETRON HCL 38395711806 No Longer Active Brii Larson APRN A ctive LOMOTIL 2.5-0.025 MG TAB 1 to 2 four times a day as needed f or diarrhea DIPHENOXYLATE-ATROPINE 79118650533 No Longer Active January Larson APRN Active AMOXICILLIN 500 MG TABS 2 tabs twice a day for 10 days AMOXICILLIN 31565958021 No Longer Active Brii Larson APRN Acti ve CYCLOBENZAPRINE HCL 10 MG TABS 1/2 - 1 tablet by mouth three times daily as needed for muscle spasm/pain CYCLOBENZAPRINE HCL 47809025832 No Longer Active Arie Casper MD Active LOMOTIL 2.5-0.025 MG TABS 1 to 2 four times a day as needed for diarrhea DIPHENOXYLATE-ATROPINE 31475407067 No Longer Active D freddy Casper MD Active MACROBID 100 MG CAP 1 cap by mouth twice daily NITROFURANTOIN MONOHYD MACRO 47236885339 No Longer Active Arie Casper MD Active ZYRTEC ALLERGY 10 MG CAPS 1 po qd CETIRIZINE HCL 00134918094 No Longer Active Arie Casper MD Active AZITHROMYCIN 250 MG TABS 2 po qd x 1 day, then 1 po qd x 4 days AZITHROMYCIN 24339817806 No Longer Active Jillina Frazelanette CABRERA Active PREDNISONE 20 MG TAB 2 tabs daily for 3 days, 1 t ab daily for 3 days, 1/2 tab daily for 2 days PREDNISONE 31742090597 No Longer Active Jillina Frazell RICK Active PROMETHAZINE HCL 25 MG TABS 1 four times a day as needed for vomiting PROMETHAZINE HCL 94540844328 No Longer Active Myrna Roberto MD Active BACTRIM DS 800-160 MG TABS 1 twice a day SULFAMETHOXAZOLE-TRIMETHOPRIM 99238990535 No Longer Active Myrna Roberto MD Active VICKS DAYQUIL SEVERE COLD/FLU TABS 1 tab every 6 hours prn 12/10 [id number]-APAP TABS 40913297257 No Longer Active Myrna leigh MD Active GUAIFENESIN-CODEINE 100-10 MG/5ML ORAL SYRP 2 tsp every 6 hours prn GUAIFENESIN-CODEINE 24502975223 No Longer Active Myrna Roberto MD Active NAPROXEN 500 MG TAB one tab PO BID NAPROXEN 332 12638726 No Longer Active Myrna Roberto MD Active AUGMENTIN 875-125 MG TAB 1 tab by mouth twice daily with food 20 08/12/16 AMOXICILLIN-POT CLAVULANATE 83999418964 No Longer Active Liliana Estrada MD PhD Active AMOXICILLIN 500 MG CAP 1 tab by mouth 3 times daily 08/12/16 AMOXICILLIN 36102304137 No Longer Active Liliana Estrada MD PhD Acti ve TESSALON PERLES 100 MG CAP 1 tablet by mouth 3 times daily 11/01 BENZONATATE 23886154913 No Longer Active Liliana Estrada MD PhD Active FLAGYL 500 MG TAB 1 tablet by mouth two times daily 07/11/29 METRONIDAZOLE 07214277304 No Longer Active Nilam Weber Active ZITHROMAX 250 MG TAB 2 po today, then 1 po q days 2-5 AZITHROMYCIN 59234563190 No Longer Active Arie Casper MD Acti ve VITAMINS 0.8 MG TABS take 1 tab po qday 08/08 [id number] 76591271208 No Longer Active Arie Casper MD Active IBUPROFEN 800 MG TABS take one po Q 8 hours IBU PROFEN 02703744044 No Longer Active Arie Casper MD Active [facility] TUSSIN COUGH/COLD CF 5-10-100 MG/5ML LIQD 2 teaspoons ev eliud 4 hours [id number] 85903321263 No Longer Active Blaine Casper MD Active COMTREX COLD/COUGH DAY/NITE MS 5-2-10-325 MG MISC 2 caps deja ry 4 hours [id number] 68335923711 No Longer Active Da aleksandra Casper MD Active CHLORASEPTIC MAX SORE THROAT 15-10 MG LOZG 1 every 2 hours prn 2 BENZOCAINE-MENTHOL 60512667190 No Longer Active Arie Marcelo Active PREDNISONE 20 MG TAB 2 tabs daily for 3 days, 1 t ab daily for 3 days, 1/2 tab daily for 2 days PREDNISONE 34335932024 No Longer Active Jose Zhong MD Active AZITHROMYCIN 250 MG TABS 2 po qd x 1 day, then 1 po qd x 4 days AZITHROMYCIN 44660146170 No Longer Active Jose Zhong MD Active ZOFRAN ODT 4 MG TBDP 1 po q6hr PRN Nausea ONDAN SETRON 56324054088 No Longer Active Rich Rosales MD Active ZOFRAN 4 MG TABS 1 tablet every 4 hours ONDANSE JERRELL HCL 97663031368 No Longer Active Rich Rosales MD Active MUCINEX 600 MG [id number]-YTZ Take 1-2 tablets every 12 hours GUAIFENESIN 76000427539 No Longer Active Rich Rosales MD Activ e BACTRIM 400-80 MG TABS take one po BID SULFAMETHOXAZOLE-TRIMETHOPRIM 34633492258 No Longer Active Abelardo HERNANDEZ Active AZITHROMYCIN 500 MG TABS 1 PO q day x 6 days AZ ITHROMYCIN 12980924511 No Longer Active Tin HERNANDEZ Active ZITHROMAX 250 MG TAB 2 po today, then 1 po q days 2-5 AZITHROMYCIN 83110252160 No Longer Active Arie Casper MD Acti ve ZITHROMAX 250 MG TAB 2 po today, then 1 po q days 2-5 AZITHROMYCIN 34215104399 No Longer Active Arie Casper MD Acti ve AMOXICILLIN 500 MG CAP 1 tab by mouth 3 times daily 20 09/23/20 AMOXICILLIN 60170812096 No Longer Active Arie Casper MD Acti ve BACTRIM DS 800-160 MG TAB 1 tab by mouth twice daily 2 TRIMETHOPRIM-SULFAMETHOXAZOLE 30633744835 No Longer Active Arie Casper MD Active AMOXICILLIN 500 MG TABS take 1 tab po TID AMOXI CILLIN 33911867445 No Longer Active Arie Casper MD Active BACTRIM DS 800-160 MG TAB 1 tab by mouth twice daily 2 BACTRIM DS 800-160 MG TAB 715589 TRIMETHOPRIM-SULFAMETHOXAZOLE Inac tive MUCINEX 600 MG [id number] Take 1-2 tablets every 12 hours MUCINEX 600 MG [id number] GUAIFENESIN Inactive ZOFRAN 4 MG TABS 1 tablet every 4 hours ZOFRAN 4 MG TABS 942433 ONDANSETRON HCL Inactive ZOFRAN ODT 4 MG TBDP 1 po q6hr PRN Nausea ZOFRAN ODT 4 MG TBDP 786682 ONDANSETRON Inactive CHLORASEPTIC MAX SORE THROAT 15-10 MG LOZG 1 every 2 hours prn 2 CHLORASEPTIC MAX SORE THROAT 15-10 MG LOZG BENZO ARINA-MENTHOL Inactive COMTREX COLD/COUGH DAY/NITE MS 5-2-10-325 MG MISC 2 caps deja ry 4 hours COMTREX COLD/COUGH DAY/NITE MS 5-2-10-325 MG MIS C [id number] Inactive [facility] TUSSIN COUGH/COLD CF 5-10-100 MG/5ML LIQD 2 teaspoons ev eliud 4 hours [facility] TUSSIN COUGH/COLD CF 5-10-100 MG/5ML LIQD [id number] Inactive IBUPROFEN 800 MG TABS take one po Q 8 hours IBUPROFEN 800 MG TABS IBUPROFEN Inactive VITAMINS 0.8 MG TABS take 1 tab po qday 08/08 VITAMINS 0.8 MG TABS [id number]-FA Inactive TESSALON PERLES 100 MG CAP 1 tablet by mouth 3 times daily 11/01 TESSALON PERLES 100 MG CAP 234379 BENZONATATE Inact zaid AMOXICILLIN 500 MG CAP 1 tab by mouth 3 times daily 08/12/16 AMOXICILLIN 500 MG CAP 347248 AMOXICILLIN Inactive GUAIFENESIN-CODEINE 100-10 MG/5ML ORAL SYRP 2 tsp every 6 hours prn GUAIFENESIN-CODEINE 100-10 MG/5ML ORAL SYRP 103416 GUAIFENESIN-CODEINE Inactive VICKS DAYQUIL SEVERE COLD/FLU TABS 1 tab every 6 hours prn 12/10 VICKS DAYQUIL SEVERE COLD/FLU TABS PHENYLEPHRINE -DM-GG-APAP TABS Inactive BACTRIM DS 800-160 MG TABS 1 twice a day BACTRIM DS 800- 160 MG TABS 744046 SULFAMETHOXAZOLE-TRIMETHOPRIM Inactive PROMETHAZINE HCL 25 MG TABS 1 four times a day as needed for vomiting PROMETHAZINE HCL 25 MG TABS 920889 PROMETHAZINE HCL Inactive ZYRTEC ALLERGY 10 MG CAPS 1 po qd ZY RTEC ALLERGY 10 MG CAPS CETIRIZINE HCL Inactive MACROBID 100 MG CAP 1 cap by mouth twice daily MACROBID 100 MG CAP 3066027 NITROFURANTOIN MONOHYD MACRO Inactive LOMOTIL 2.5-0.025 MG TABS 1 to 2 four times a day as needed for diarrhea LOMOTIL 2.5-0.025 MG TABS 3445055 DIPHENOXYLATE-A TROPINE Inactive CYCLOBENZAPRINE HCL 10 MG TABS 1/2 - 1 tablet by mouth three times daily as needed for muscle spasm/pain CYCLOBENZAP RINE HCL 10 MG TABS 119316 CYCLOBENZAPRINE HCL Inactive AMOXICILLIN 500 MG TABS 2 tabs twice a day for 10 days AMOXICILLIN 500 MG TABS 001559 AMOXICILLIN Inactive LOMOTIL 2.5-0.025 MG TAB 1 to 2 four times a day as needed f or diarrhea LOMOTIL 2.5-0.025 MG TAB 8405401 DIPHENOXYLATE-AT ROPINE Inactive ZOFRAN 4 MG ORAL TABS 1 TAB PO Q 6 HRS PRN NAUSEA 2014 ZOFRAN 4 MG ORAL TABS 803561 ONDANSETRON HCL Inactive CITRATE OF MAGNESIA ORAL SOLN 1 bottle today for constipation 20 07/10/15 CITRATE OF MAGNESIA ORAL SOLN 7038290 MAGNESIUM CITRATE Inactive PROMETHAZINE HCL 12.5 MG TABS 1 tablet by mouth every 6 hours as needed for nausea/vomiting PROMETHAZINE HCL 12.5 MG TABS 386981 PROMETHAZINE HCL Inactive PREDNISONE 20 MG TAB 1 tablet twice daily for 2 d ays, then 1 tablet once daily for 2 days PREDNISONE 20 MG TAB 493422 PREDNISONE Inac tive ALPRAZOLAM 0.25 MG TAB 1 tablet by mouth every 8 hours as ne eded for stress ALPRAZOLAM 0.25 MG TAB 436780 ALPRAZOLAM Inact zaid FLONASE 50 MCG/ACT SUSP 1 spray each nostril twice d aily for allergies and runny nose until gone FLONASE 50 MCG/ACT SUSP F LUTICASONE PROPIONATE Inactive PREDNISONE 20 MG TAB 1 tablet daily for airway inflammation 2015 PREDNISONE 20 MG TAB 547395 PREDNISONE Inactive AMOXICILLIN 500 MG TABS take 1 tab po TID AMOXICILLIN 500 MG TABS 360190 AMOXICILLIN Inactive AMOXICILLIN 500 MG CAP 1 tab by mouth 3 times daily 09/23/20 AMOXICILLIN 500 MG CAP 244575 AMOXICILLIN Inactive ZITHROMAX 250 MG TAB 2 po today, then 1 po q days 2-5 ZITHROMAX 250 MG TAB 5344631 AZITHROMYCIN Inactive ZITHROMAX 250 MG TAB 2 po today, then 1 po q days 2-5 ZITHROMAX 250 MG TAB 6634746 AZITHROMYCIN Inactive AZITHROMYCIN 500 MG TABS 1 PO q day x 6 days 3 AZITHROMYCIN 500 MG TABS 2293761 AZITHROMYCIN Inactive BACTRIM 400-80 MG TABS take one po BID BA CTRIM 400-80 MG TABS 531198 SULFAMETHOXAZOLE-TRIMETHOPRIM Inactive AZITHROMYCIN 250 MG TABS 2 po qd x 1 day, then 1 po qd x 4 days AZITHROMYCIN 250 MG TABS 2703483 AZITHROMYCIN Inactiv e PREDNISONE 20 MG TAB 2 tabs daily for 3 days, 1 t ab daily for 3 days, 1/2 tab daily for 2 days PREDNISONE 20 MG TAB 839845 PREDNISON E Inactive ZITHROMAX 250 MG TAB 2 po today, then 1 po q days 2-5 ZITHROMAX 250 MG TAB 3301129 AZITHROMYCIN Inactive FLAGYL 500 MG TAB 1 tablet by mouth two times daily 07/11/29 FLAGYL 500 MG TAB 381407 METRONIDAZOLE Inactive AUGMENTIN 875-125 MG TAB 1 tab by mouth twice daily with food 20 08/12/16 AUGMENTIN 875-125 MG TAB 207684 AMOXICILLIN-POT CLAVULA ANGELO Inactive NAPROXEN 500 MG TAB one tab PO BID NAPROXEN 500 MG TAB 273994 NAPROXEN Inactive PREDNISONE 20 MG TAB 2 tabs daily for 3 days, 1 t ab daily for 3 days, 1/2 tab daily for 2 days PREDNISONE 20 MG TAB 625219 PREDNISON E Inactive AZITHROMYCIN 250 MG TABS 2 po qd x 1 day, then 1 po qd x 4 days AZITHROMYCIN 250 MG TABS 9692175 AZITHROMYCIN Inactiv e PREDNISONE 20 MG TAB 2 tabs daily for 3 days, 1 t ab daily for 3 days, 1/2 tab daily for 2 days PREDNISONE 20 MG TAB 544958 PREDNISON E Inactive ZITHROMAX Z-EMIL 250 MG TABS 2 today, then 1 daily for 4 days 201 03/31/18 ZITHROMAX Z-EMIL 250 MG TABS 4023311 AZITHROMYCIN Inac tive CEFDINIR 300 MG CAPS [...] Panel - Chemistry sodium, serum 136 mmol/L 367-663 8149/04/26 carbon dioxide, venous blood 29.9 mmol/L 21.0-32 [...] 11 .6-14.8 platelet count 284 10^3/MM^3 10*3/mm3 952-044 3312/04/26 erythrocyte (RBC) count 4.76 10^6/MM^3 10*6/mm3 4.04-5.4 [...] Negative Encounters Code Encounter Date Provider Facility CPT-63918 Level 4 Est. Patient 12:08:40 [employer] Steve [employer] [facility] CPT-49632 Level 3 Est. Patient 09:24:42 CDT Steve [facility] CPT-42858 Level 3 Est. Patient 09:12:56 CDT Arie mcqueen MD [facility] CPT-03285 Level 3 Est. Patient 16:40:54 CDT Jose Zhong MD [facility] CPT-88962 Level 2 Est. Patient 13:01:13 CDT Steve [employer] [facility] CPT-34915 Level 3 Est. Patient 11:55:30 [employer] Jono black DO [facility] CPT-66573 Level 3 Est. Patient 09:52:36 [employer] Steve CABRERA [facility] CPT-49352 Level 3 Est. Patient 16:25:33 [employer] Rich Rosales MD [facility] CPT-05989 Level 3 Est. Patient 20:33:55 CDT Arie mcqueen MD [facility] CPT-59270 Level 3 Est. Patient 14:18:20 CDT Rich Rosales MD [facility] CPT-11603 Level 4 Est. Patient 09:34:31 CDT Arie mcqueen MD [facility] CPT-86594 Level 3 Est. Patient 09:08:55 [employer] Liliana vincent MD PhD [facility]-15140 Level 3 Est. Patient 16:44:07 [employer] Arie mcqueen MD [facility] CPT-82528 Level 3 Est. Patient 10:44:27 CDT Arie mcqueen MD [facility] CPT-17984 Level 3 Est. Patient 08:55:41 CDT Jose Zhong MD [facility] CPT-25106 Level 3 Est. Patient 18:37:31 CDT Liliana vincent MD PhD [facility] CPT-94072 Level 3 Est. Patient 14:28:23 CDT Abelardo HERNANDEZ [facility] CPT-44264 Level 3 Est. Patient 15:18:13 [employer] Arie mcqueen MD [facility] CPT-80543 Level 3 Est. Patient 10:11:29 [employer] Arie mcqueen MD [facility] CPT-54387 Level 3 Est. Patient 10:55:57 [employer] Jono black DO [facility] CPT-22781 Level 3 Est. Patient 17:29:05 CDT Arie mcqueen MD [facility] Procedures Code Procedure Name Date Entry Date Standard Desc ription CPT-85077 Sono transvag pelvis non OB uterus ovari es cervix - XRAY USE ONLY 08:58:14 [employer] CPT-40891 UA w micro - LAB USE ONLY 16:04:56 [employer] 2015 CPT-95656 Wet Prep/GEN - LAB USE ONLY 16:04:56 [employer] 20 08/10/29 CPT-07241 First Vx - Ix admin via ID I M or jet injects without counseling by physician 16:57:10 CDT CPT-45013 Fluzone Preservative Free Intramuscular Suspension 16:57:10 CDT CPT-J0696 Rocephin 1000 mg (Ceftriaxone) 11:49:23 CDT CPT-J1040 Depo Medrol 80 mg (Methyl Prednisolone A cetate) 11:49:23 CDT CPT-J1100 Decadron 8mg (Dexamethasone) 11:49:23 CDT 2 CPT-91236 Abx/Therapy Injection 11:49:23 CDT CPT-47326 Abx/Therapy Injection 11:49:23 CDT CPT-14230 Abd compl w upright 09:07:26 [employer] CPT-81252 Ear Wash 16:12:47 [employer] CPT-OV Office Visit 11:12:01 CDT CPT-OV Office Visit 15:30:23 CDT CPT-27929 Sono pelvis non OB uterus ovaries cervix 15:50:44 CDT CPT-37895 Hand comp min 3V 16:42:32 CDT CPT-48959 Abd compl w upright 12:17:01 CDT CPT-88558 Nexplanon Placement 15:07:39 [employer] CPT-61176 Removal of IUD 15:07:39 [employer] CPT-62493 TB Tubersol 12:09:32 CDT CPT-46883 TB Tubersol 13:55:43 CDT
--- OUTSIDE RECORDS SUMMARY | 2020-03-03 08:08 | XMS REPORT | Clinical Summary ---
Author Author Admin, Diamante Marcelo Organization [facility] Address Unknown Phone Unavailable Allergies, [...] cute pharyngitis Nausea 787.02 Active Brii Larson CLAIMS SUPPORT SPECIALIST Nausea alone URI 465.9 Active Jono [...] tablet once daily for 2 days PREDNISONE 02110071609 Active Jono Gagnon DO Active FLONASE 50 MCG/ACT SUSP 1 spray each nostril twice d aily for allergies and runny nose until gone FLUTICASONE PROPIONATE Active Jono Gagnon DO Active PROMETHAZINE HCL 12.5 MG TABS 1 tablet by mouth every 6 hours as needed for nausea/vomiting PROMETHAZINE HCL 30141859186 No Longe r Active Jono Gagnon DO Active CITRATE OF MAGNESIA ORAL SOLN 1 bottle today for constipation 20 07/10/15 MAGNESIUM CITRATE 10782258850 No Longer Active Jono Gagnon DO Active ZOFRAN 4 MG ORAL TABS 1 TAB PO Q 6 HRS PRN NAUSEA 2014 ONDANSETRON HCL 51831655839 No Longer Active Brii Larson APRN A ctive LOMOTIL 2.5-0.025 MG TAB 1 to 2 four times a day as needed f or diarrhea DIPHENOXYLATE-ATROPINE 77963182139 No Longer Active January Larson APRN Active AMOXICILLIN 500 MG TABS 2 tabs twice a day for 10 days AMOXICILLIN 83329896289 No Longer Active Brii Larson APRN Acti ve NEXPLANON IMPL ETONOGESTREL IMPL 86276661972 Active Rich Rosales MD Active CYCLOBENZAPRINE HCL 10 MG TABS 1/2 - 1 tablet by mouth three times daily as needed for muscle spasm/pain CYCLOBENZAPRINE HCL 99641555015 No Longer Active Arie Casper MD Active LOMOTIL 2.5-0.025 MG TABS 1 to 2 four times a day as needed for diarrhea DIPHENOXYLATE-ATROPINE 81116432536 No Longer Active Fozia Casper MD Active MACROBID 100 MG CAP 1 cap by mouth twice daily NITROFURANTOIN MONOHYD MACRO 85551758480 No Longer Active Arie Casper MD Active ZYRTEC ALLERGY 10 MG CAPS 1 po qd CETIRIZINE HCL 96752786680 No Longer Active Arie Casper MD Active AZITHROMYCIN 250 MG TABS 2 po qd x 1 day, then 1 po qd x 4 days AZITHROMYCIN 36936686312 No Longer Active Jillina Frazell CLAIMS SUPPORT SPECIALIST Active PREDNISONE 20 MG TAB 2 tabs daily for 3 days, 1 t ab daily for 3 days, 1/2 tab daily for 2 days PREDNISONE 27084518813 No Longer Active Jillina Frazell CLAIMS SUPPORT SPECIALIST Active PROMETHAZINE HCL 25 MG TABS 1 four times a day as needed for vomiting PROMETHAZINE HCL 38150527737 No Longer Active Myrna Roberto MD Active BACTRIM DS 800-160 MG TABS 1 twice a day SULFAMETHOXAZOLE-TRIMETHOPRIM 21343958548 No Longer Active Myrna Roberto MD Active VICKS DAYQUIL SEVERE COLD/FLU TABS 1 tab every 6 hours prn 12/10 [id number]-APAP TABS 38731557076 No Longer Active Myrna leigh MD Active GUAIFENESIN-CODEINE 100-10 MG/5ML ORAL SYRP 2 tsp every 6 hours prn GUAIFENESIN-CODEINE 19252363427 No Longer Active Myrna Roberto MD Active NAPROXEN 500 MG TAB one tab PO BID NAPROXEN 332 75612123 No Longer Active Myrna Roberto MD Active AUGMENTIN 875-125 MG TAB 1 tab by mouth twice daily with food 20 15/02/17 AMOXICILLIN-POT CLAVULANATE 73759448137 No Longer Active Liliana Estrada MD PhD Active AMOXICILLIN 500 MG CAP 1 tab by mouth 3 times daily 08/12/16 AMOXICILLIN 94163438855 No Longer Active Liliana Estrada MD PhD Acti ve TESSALON PERLES 100 MG CAP 1 tablet by mouth 3 times daily 11/01 BENZONATATE 98388722587 No Longer Active Liliana Estrada MD PhD Active FLAGYL 500 MG TAB 1 tablet by mouth two times daily 07/11/29 METRONIDAZOLE 52676950427 No Longer Active Nilam Weber Active ZITHROMAX 250 MG TAB 2 po today, then 1 po q days 2-5 AZITHROMYCIN 07105006065 No Longer Active Arie Casper MD Acti ve VITAMINS 0.8 MG TABS take 1 tab po qday 08/08 [id number] 74043644223 No Longer Active Arie Casper MD Active IBUPROFEN 800 MG TABS take one po Q 8 hours IBU PROFEN 02293419431 No Longer Active Arie Casper MD Active [facility] TUSSIN COUGH/COLD CF 5-10-100 MG/5ML LIQD 2 teaspoons ev eliud 4 hours [id number] 87490020268 No Longer Active Blaine Casper MD Active COMTREX COLD/COUGH DAY/NITE MS 5-2-10-325 MG MISC 2 caps deja ry 4 hours [id number] 10922587850 No Longer Active Landon Casper MD Active CHLORASEPTIC MAX SORE THROAT 15-10 MG LOZG 1 every 2 hours prn 2 BENZOCAINE-MENTHOL 90605297660 No Longer Active rAie Marcelo Active PREDNISONE 20 MG TAB 2 tabs daily for 3 days, 1 t ab daily for 3 days, 1/2 tab daily for 2 days PREDNISONE 56113658561 No Longer Active Jose Zhong MD Active AZITHROMYCIN 250 MG TABS 2 po qd x 1 day, then 1 po qd x 4 days AZITHROMYCIN 45893529292 No Longer Active Jose Zhong MD Active ZOFRAN ODT 4 MG TBDP 1 po q6hr PRN Nausea ONDAN SETRON 25122067771 No Longer Active Rich Rosales MD Active ZOFRAN 4 MG TABS 1 tablet every 4 hours ONDANSE JERRELL HCL 75711990224 No Longer Active Rich Rosales MD Active MUCINEX 600 MG [id number]-TTD Take 1-2 tablets every 12 hours GUAIFENESIN 97973880384 No Longer Active Rich Rosales MD Activ e BACTRIM 400-80 MG TABS take one po BID SULFAMETHOXAZOLE-TRIMETHOPRIM 10938699702 No Longer Active Abelardo HERNANDEZ Active AZITHROMYCIN 500 MG TABS 1 PO q day x 6 days AZ ITHROMYCIN 28596426701 No Longer Active Tin HERNANDEZ Active ZITHROMAX 250 MG TAB 2 po today, then 1 po q days 2-5 AZITHROMYCIN 55651510146 No Longer Active Arie Casper MD Acti ve ZITHROMAX 250 MG TAB 2 po today, then 1 po q days 2-5 AZITHROMYCIN 59553572681 No Longer Active Arie Casper MD Acti ve AMOXICILLIN 500 MG CAP 1 tab by mouth 3 times daily 20 09/23/20 AMOXICILLIN 58944921174 No Longer Active Arie Casper MD Acti ve BACTRIM DS 800-160 MG TAB 1 tab by mouth twice daily 2 TRIMETHOPRIM-SULFAMETHOXAZOLE 51676634801 No Longer Active Arie Casper MD Active AMOXICILLIN 500 MG TABS take 1 tab po TID AMOXI CILLIN 00625536957 No Longer Active Arie Casper MD Active BACTRIM DS 800-160 MG TAB 1 tab by mouth twice daily 2 BACTRIM DS 800-160 MG TAB 19821226 TRIMETHOPRIM-SULFAMETHOXAZOLE Inac tive MUCINEX 600 MG [id number]-JSN Take 1-2 tablets every 12 hours MUCINEX 600 MG [id number] GUAIFENESIN Inactive ZOFRAN 4 MG TABS 1 tablet every 4 hours ZOFRAN 4 MG TABS 361696 ONDANSETRON HCL Inactive ZOFRAN ODT 4 MG TBDP 1 po q6hr PRN Nausea ZOFRAN ODT 4 MG TBDP 029792 ONDANSETRON Inactive CHLORASEPTIC MAX SORE THROAT 15-10 MG LOZG 1 every 2 hours prn 2 014/04/30 CHLORASEPTIC MAX SORE THROAT 15-10 MG LOZG BENZO ARINA-MENTHOL Inactive COMTREX COLD/COUGH DAY/NITE MS 5-2-10-325 MG MISC 2 caps deja ry 4 hours COMTREX COLD/COUGH DAY/NITE MS 5-2-10-325 MG MIS C [id number]-APAP Inactive [facility] TUSSIN COUGH/COLD CF 5-10-100 MG/5ML LIQD 2 teaspoons ev eliud 4 hours [facility] TUSSIN COUGH/COLD CF 5-10-100 MG/5ML LIQD [id number] Inactive IBUPROFEN 800 MG TABS take one po Q 8 hours IBUPROFEN 800 MG TABS IBUPROFEN Inactive VITAMINS 0.8 MG TABS take 1 tab po qday 08/08 VITAMINS 0.8 MG TABS [id number] Inactive TESSALON PERLES 100 MG CAP 1 tablet by mouth 3 times daily 11/01 TESSALON PERLES 100 MG CAP 173211 BENZONATATE Inact zaid AMOXICILLIN 500 MG CAP 1 tab by mouth 3 times daily 08/12/16 AMOXICILLIN 500 MG CAP 732837 AMOXICILLIN Inactive GUAIFENESIN-CODEINE 100-10 MG/5ML ORAL SYRP 2 tsp every 6 hours prn GUAIFENESIN-CODEINE 100-10 MG/5ML ORAL SYRP 808614 GUAIFENESIN-CODEINE Inactive VICKS DAYQUIL SEVERE COLD/FLU TABS 1 tab every 6 hours prn 12/10 VICKS DAYQUIL SEVERE COLD/FLU TABS PHENYLEPHRINE -DM-GG-APAP TABS Inactive BACTRIM DS 800-160 MG TABS 1 twice a day BACTRIM DS 800- 160 MG TABS 844217 SULFAMETHOXAZOLE-TRIMETHOPRIM Inactive PROMETHAZINE HCL 25 MG TABS 1 four times a day as needed for vomiting PROMETHAZINE HCL 25 MG TABS 768045 PROMETHAZINE HCL Inactive ZYRTEC ALLERGY 10 MG CAPS 1 po qd ZY RTEC ALLERGY 10 MG CAPS CETIRIZINE HCL Inactive MACROBID 100 MG CAP 1 cap by mouth twice daily MACROBID 100 MG CAP 5526117 NITROFURANTOIN MONOHYD MACRO Inactive LOMOTIL 2.5-0.025 MG TABS 1 to 2 four times a day as needed for diarrhea LOMOTIL 2.5-0.025 MG TABS 0466116 DIPHENOXYLATE-A TROPINE Inactive CYCLOBENZAPRINE HCL 10 MG TABS 1/2 - 1 tablet by mouth three times daily as needed for muscle spasm/pain CYCLOBENZAP RINE HCL 10 MG TABS 744300 CYCLOBENZAPRINE HCL Inactive AMOXICILLIN 500 MG TABS 2 tabs twice a day for 10 days AMOXICILLIN 500 MG TABS 623484 AMOXICILLIN Inactive LOMOTIL 2.5-0.025 MG TAB 1 to 2 four times a day as needed f or diarrhea LOMOTIL 2.5-0.025 MG TAB 1724607 DIPHENOXYLATE-AT ROPINE Inactive ZOFRAN 4 MG ORAL TABS 1 TAB PO Q 6 HRS PRN NAUSEA 2014 ZOFRAN 4 MG ORAL TABS 388035 ONDANSETRON HCL Inactive CITRATE OF MAGNESIA ORAL SOLN 1 bottle today for constipation 20 07/10/15 CITRATE OF MAGNESIA ORAL SOLN 3155692 MAGNESIUM CITRATE Inactive PROMETHAZINE HCL 12.5 MG TABS 1 tablet by mouth every 6 hours as needed for nausea/vomiting PROMETHAZINE HCL 12.5 MG TABS 951473 PROMETHAZINE HCL Inactive AMOXICILLIN 500 MG TABS take 1 tab po TID AMOXICILLIN 500 MG TABS 433631 AMOXICILLIN Inactive AMOXICILLIN 500 MG CAP 1 tab by mouth 3 times daily 09/23/20 AMOXICILLIN 500 MG CAP 248824 AMOXICILLIN Inactive ZITHROMAX 250 MG TAB 2 po today, then 1 po q days 2-5 ZITHROMAX 250 MG TAB 9483710 AZITHROMYCIN Inactive ZITHROMAX 250 MG TAB 2 po today, then 1 po q days 2-5 ZITHROMAX 250 MG TAB 5302231 AZITHROMYCIN Inactive AZITHROMYCIN 500 MG TABS 1 PO q day x 6 days 3 AZITHROMYCIN 500 MG TABS 1761968 AZITHROMYCIN Inactive BACTRIM 400-80 MG TABS take one po BID BA CTRIM 400-80 MG TABS 432942 SULFAMETHOXAZOLE-TRIMETHOPRIM Inactive AZITHROMYCIN 250 MG TABS 2 po qd x 1 day, then 1 po qd x 4 days AZITHROMYCIN 250 MG TABS 8381294 AZITHROMYCIN Inactiv e PREDNISONE 20 MG TAB 2 tabs daily for 3 days, 1 t ab daily for 3 days, 1/2 tab daily for 2 days PREDNISONE 20 MG TAB 433159 PREDNISON E Inactive ZITHROMAX 250 MG TAB 2 po today, then 1 po q days 2-5 ZITHROMAX 250 MG TAB 1427382 AZITHROMYCIN Inactive FLAGYL 500 MG TAB 1 tablet by mouth two times daily 07/11/29 FLAGYL 500 MG TAB 002170 METRONIDAZOLE Inactive AUGMENTIN 875-125 MG TAB 1 tab by mouth twice daily with food 08/12/16 AUGMENTIN 875-125 MG TAB 367606 AMOXICILLIN-POT CLAVULA ANGELO Inactive NAPROXEN 500 MG TAB one tab PO BID NAPROXEN 500 MG TAB 977292 NAPROXEN Inactive PREDNISONE 20 MG TAB 2 tabs daily for 3 days, 1 t ab daily for 3 days, 1/2 tab daily for 2 days PREDNISONE 20 MG TAB 380419 PREDNISON E Inactive AZITHROMYCIN 250 MG TABS 2 po qd x 1 day, then 1 po qd x 4 days AZITHROMYCIN 250 MG TABS 7753386 AZITHROMYCIN Inactiv e Advance Directives Directive Description [...] 276 10^3/MM^3 10*3/mm3 142-424 Lab Report: Chlamydia/GC APTIMA/[id number] - Lab chlamydia DNA probe NOT DETECTED NOT DETECTED Lab Report: Chlamydia/GC APTIMA/[id number] - Microbiology Neisseria gonorrhoeae DNA probe NOT DETECTED NO T DETECTED Lab Report: Comp. Metabolic Panel - Chem istry sodium, serum 139 mmol/L 391-526 1031/12/15 carbon dioxide, venous blood 30.2 mmol/L 21.0-32 .0 potassium, serum 3.4 mmol/L 3.5-5.2 chloride, serum 101 mmol/L 98-107 blood glucose 92 mg/dL 65-110 urea nitrogen, blood 5 mg/dL 7-18 creatinine, serum 0.81 mg/dL 0.55-1.30 alanine aminotransferase (SGPT), serum 20 U/L 12-78 aspartate aminotransferase (SGOT), serum 10 U/L 15-37 calcium, serum 8.4 mg/dL 8.5-10.1 bilirubin, serum, total 0.60 mg/dL 0.00-1.00 Lab Report: HIV-1/2 Agn/Darcy/81447, HEPAT ITIS PANEL, ACUTE W/REFLE - Chemistry [...] ative Encounters Code Encounter Date Provider Facility CPT-19821 Level 3 Est. Patient 11:55:30 MEDICINE AIDE Jono black DO [facility]-00673 Level 3 Est. Patient 09:52:36 MEDICINE AIDE Steve CABRERA [facility] CPT-65189 Level 3 Est. Patient 16:25:33 MEDICINE AIDE Rich Rosales MD [facility]-43948 Level 3 Est. Patient 20:33:55 CDT Arie mcqueen MD [facility]-14713 Level 3 Est. Patient 14:18:20 CDT Rich Rosales MD [facility] CPT-12210 Level 4 Est. Patient 09:34:31 CDT Arie mcqueen MD [facility]-70154 Level 3 Est. Patient 09:08:55 MEDICINE AIDE Liliana vincent MD [facility]-50561 Level 3 Est. Patient 16:44:07 MEDICINE AIDE Arie mcqueen MD [facility]-72485 Level 3 Est. Patient 10:44:27 CDT Arie mcqueen MD [facility]-96870 Level 3 Est. Patient 08:55:41 CDT Jose Zhong MD [facility]-42324 Level 3 Est. Patient 18:37:31 CDT Liliana vincent MD [facility]-00771 Level 3 Est. Patient 14:28:23 CDT Abelardo HERNANDEZ [facility]-75754 Level 3 Est. Patient 15:18:13 MEDICINE AIDE Arie mcqueen MD [facility] CPT-46241 Level 3 Est. Patient 10:11:29 MEDICINE AIDE Arie mcqueen MD [facility] CPT-73868 Level 3 Est. Patient 10:55:57 MEDICINE AIDE Jono black DO [facility] CPT-45625 Level 3 Est. Patient 17:29:05 CDT Arie mcqueen MD [facility] Procedures Code Procedure Name Date Entry Date Standard Desc ription CPT-83758 Abd compl w upright 09:07:26 MEDICINE AIDE CPT-90424 Ear Wash 16:12:47 MEDICINE AIDE CPT-OV Office Visit 11:12:01 CDT CPT-OV Office Visit 15:30:23 CDT CPT-42728 Sono pelvis non OB uterus ovaries cervix 15:50:44 CDT CPT-50411 Hand comp min 3V 16:42:32 CDT CPT-89078 Abd compl w upright 12:17:01 CDT CPT-62306 Nexplanon Placement 15:07:39 MEDICINE AIDE CPT-17621 Removal of IUD 15:07:39 MEDICINE AIDE CPT-87716 TB Tubersol 12:09:32 CDT CPT-81660 TB Tubersol 13:55:43 CDT
--- OUTSIDE RECORDS SUMMARY | 2020-03-03 08:08 | XMS REPORT | Clinical Summary ---
Author Author Admin, Diamante Marcelo Organization [employer] Address Unknown Phone Unavailable Allergies, Adverse Reactions, [...] site Abdominal pain 789.00 Active Brii Larson CRAYON SAWYER Abdominal pain, unspecified site Diarrhea 787.91 Resolved [...] cute pharyngitis Nausea 787.02 Active Brii Larson CRAYON SAWYER Nausea alone URI 465.9 Active Jono Gagnon [...] 1 po q a.m. PANTOPRAZO LE SODIUM 10222477128 Active Jose Zhong MD Active PREDNISONE 20 MG TAB 2 tabs daily for 3 days, 1 t ab daily for 3 days, 1/2 tab daily for 2 days PREDNISONE 74943956406 No Longer Active Brii Larson APRN Active PREDNISONE 20 MG TAB 1 tablet twice daily for 2 d ays, then 1 tablet once daily for 2 days PREDNISONE 30903090726 No Longer Active Brii Larson APRN Active FLONASE 50 MCG/ACT SUSP 1 spray each nostril twice d aily for allergies and runny nose until gone FLUTICASONE PROPIONATE Active Jono Gagnon DO Active PROMETHAZINE HCL 12.5 MG TABS 1 tablet by mouth every 6 hours as needed for nausea/vomiting PROMETHAZINE HCL 68015834319 No Longe r Active Jono Gagnon DO Active CITRATE OF MAGNESIA ORAL SOLN 1 bottle today for constipation 20 07/10/15 MAGNESIUM CITRATE 49427321102 No Longer Active Jono Gagnon DO Active ZOFRAN 4 MG ORAL TABS 1 TAB PO Q 6 HRS PRN NAUSEA 2014 ONDANSETRON HCL 31720616329 No Longer Active Brii Larson APRN A ctive LOMOTIL 2.5-0.025 MG TAB 1 to 2 four times a day as needed f or diarrhea DIPHENOXYLATE-ATROPINE 82339724423 No Longer Active January Larson APRN Active AMOXICILLIN 500 MG TABS 2 tabs twice a day for 10 days AMOXICILLIN 97113929339 No Longer Active Brii Larson APRN Acti ve NEXPLANON IMPL ETONOGESTREL IMPL 50842639413 Active Rich Rosales MD Active CYCLOBENZAPRINE HCL 10 MG TABS 1/2 - 1 tablet by mouth three times daily as needed for muscle spasm/pain CYCLOBENZAPRINE HCL 55740806152 No Longer Active Arie Casper MD Active LOMOTIL 2.5-0.025 MG TABS 1 to 2 four times a day as needed for diarrhea DIPHENOXYLATE-ATROPINE 78867796490 No Longer Active Fozia Casper MD Active MACROBID 100 MG CAP 1 cap by mouth twice daily NITROFURANTOIN MONOHYD MACRO 98181626749 No Longer Active Arie Casper MD Active ZYRTEC ALLERGY 10 MG CAPS 1 po qd CETIRIZINE HCL 91028640855 No Longer Active Arie Casper MD Active AZITHROMYCIN 250 MG TABS 2 po qd x 1 day, then 1 po qd x 4 days AZITHROMYCIN 59408024307 No Longer Active Jillina Franaomi CABRERA Active PREDNISONE 20 MG TAB 2 tabs daily for 3 days, 1 t ab daily for 3 days, 1/2 tab daily for 2 days PREDNISONE 27910108839 No Longer Active Jillina Frazell RICK Active PROMETHAZINE HCL 25 MG TABS 1 four times a day as needed for vomiting PROMETHAZINE HCL 64087638473 No Longer Active Myrna Roberto MD Active BACTRIM DS 800-160 MG TABS 1 twice a day SULFAMETHOXAZOLE-TRIMETHOPRIM 26140323136 No Longer Active Myrna Roberto MD Active VICKS DAYQUIL SEVERE COLD/FLU TABS 1 tab every 6 hours prn 12/10 [id number]-APAP TABS 18267762954 No Longer Active Myrna leigh MD Active GUAIFENESIN-CODEINE 100-10 MG/5ML ORAL SYRP 2 tsp every 6 hours prn GUAIFENESIN-CODEINE 51614695775 No Longer Active Myrna Roberto MD Active NAPROXEN 500 MG TAB one tab PO BID NAPROXEN 332 86158030 No Longer Active Myrna Roberto MD Active AUGMENTIN 875-125 MG TAB 1 tab by mouth twice daily with food 20 08/12/16 AMOXICILLIN-POT CLAVULANATE 41851477990 No Longer Active Liliana Estrada MD PhD Active AMOXICILLIN 500 MG CAP 1 tab by mouth 3 times daily 08/12/16 AMOXICILLIN 24881796784 No Longer Active Liliana Estrada MD PhD Acti ve TESSALON PERLES 100 MG CAP 1 tablet by mouth 3 times daily 11/01 BENZONATATE 62051025533 No Longer Active Liliana Estrada MD PhD Active FLAGYL 500 MG TAB 1 tablet by mouth two times daily 07/11/29 METRONIDAZOLE 26401782723 No Longer Active Nilam Weber Active ZITHROMAX 250 MG TAB 2 po today, then 1 po q days 2-5 AZITHROMYCIN 73388278280 No Longer Active Arie Casper MD Acti ve VITAMINS 0.8 MG TABS take 1 tab po qday 08/08 [id number]-[id number] 72016595120 No Longer Active Arie Casper MD Active IBUPROFEN 800 MG TABS take one po Q 8 hours IBU PROFEN 15489354154 No Longer Active Arie Casper MD Active [facility] TUSSIN COUGH/COLD CF 5-10-100 MG/5ML LIQD 2 teaspoons ev eliud 4 hours [id number] 02566479008 No Longer Active Blaine Casper MD Active COMTREX COLD/COUGH DAY/NITE MS 5-2-10-325 MG MISC 2 caps deja ry 4 hours [id number] 28353115563 No Longer Active Da aleksandra Casper MD Active CHLORASEPTIC MAX SORE THROAT 15-10 MG LOZG 1 every 2 hours prn 2 014/04/30 BENZOCAINE-MENTHOL 10227592839 No Longer Active Arie Marcelo Active PREDNISONE 20 MG TAB 2 tabs daily for 3 days, 1 t ab daily for 3 days, 1/2 tab daily for 2 days PREDNISONE 24961136946 No Longer Active Jose Zhong MD Active AZITHROMYCIN 250 MG TABS 2 po qd x 1 day, then 1 po qd x 4 days AZITHROMYCIN 80652810433 No Longer Active Jose Zhong MD Active ZOFRAN ODT 4 MG TBDP 1 po q6hr PRN Nausea ONDAN SETRON 29616764344 No Longer Active Rich Rosales MD Active ZOFRAN 4 MG TABS 1 tablet every 4 hours ONDANSE JERRELL HCL 42883243968 No Longer Active Rich Rosales MD Active MUCINEX 600 MG [id number] Take 1-2 tablets every 12 hours GUAIFENESIN 51814151323 No Longer Active Rich Rosales MD Activ e BACTRIM 400-80 MG TABS take one po BID SULFAMETHOXAZOLE-TRIMETHOPRIM 19941279115 No Longer Active Abelardo HERNANDEZ Active AZITHROMYCIN 500 MG TABS 1 PO q day x 6 days AZ ITHROMYCIN 27547125703 No Longer Active Tin HERNANDEZ Active ZITHROMAX 250 MG TAB 2 po today, then 1 po q days 2-5 AZITHROMYCIN 86759746355 No Longer Active Arie Casper MD Acti ve ZITHROMAX 250 MG TAB 2 po today, then 1 po q days 2-5 AZITHROMYCIN 56124579351 No Longer Active Arie Casper MD Acti ve AMOXICILLIN 500 MG CAP 1 tab by mouth 3 times daily 20 09/23/20 AMOXICILLIN 13464658707 No Longer Active Arie Casper MD Acti ve BACTRIM DS 800-160 MG TAB 1 tab by mouth twice daily 2 TRIMETHOPRIM-SULFAMETHOXAZOLE 87746846510 No Longer Active Arie Casper MD Active AMOXICILLIN 500 MG TABS take 1 tab po TID AMOXI CILLIN 36970120193 No Longer Active Arie Casper MD Active BACTRIM DS 800-160 MG TAB 1 tab by mouth twice daily 2 BACTRIM DS 800-160 MG TAB 294276 TRIMETHOPRIM-SULFAMETHOXAZOLE Inac tive MUCINEX 600 MG [id number]-[id number] Take 1-2 tablets every 12 hours MUCINEX 600 MG [id number] GUAIFENESIN Inactive ZOFRAN 4 MG TABS 1 tablet every 4 hours ZOFRAN 4 MG TABS 660179 ONDANSETRON HCL Inactive ZOFRAN ODT 4 MG TBDP 1 po q6hr PRN Nausea ZOFRAN ODT 4 MG TBDP 904558 ONDANSETRON Inactive CHLORASEPTIC MAX SORE THROAT 15-10 MG LOZG 1 every 2 hours prn 2 CHLORASEPTIC MAX SORE THROAT 15-10 MG LOZG BENZO ARINA-MENTHOL Inactive COMTREX COLD/COUGH DAY/NITE MS 5-2-10-325 MG MISC 2 caps deja ry 4 hours COMTREX COLD/COUGH DAY/NITE MS 5-2-10-325 MG MIS C [id number]-APAP Inactive [facility] TUSSIN COUGH/COLD CF 5-10-100 MG/5ML LIQD 2 teaspoons ev eliud 4 hours [facility] TUSSIN COUGH/COLD CF 5-10-100 MG/5ML LIQD [id number] Inactive IBUPROFEN 800 MG TABS take one po Q 8 hours IBUPROFEN 800 MG TABS IBUPROFEN Inactive VITAMINS 0.8 MG TABS take 1 tab po qday 08/08 VITAMINS 0.8 MG TABS [id number] Inactive TESSALON PERLES 100 MG CAP 1 tablet by mouth 3 times daily 11/01 TESSALON PERLES 100 MG CAP 690312 BENZONATATE Inact zaid AMOXICILLIN 500 MG CAP 1 tab by mouth 3 times daily 08/12/16 AMOXICILLIN 500 MG CAP 167207 AMOXICILLIN Inactive GUAIFENESIN-CODEINE 100-10 MG/5ML ORAL SYRP 2 tsp every 6 hours prn GUAIFENESIN-CODEINE 100-10 MG/5ML ORAL SYRP 709881 GUAIFENESIN-CODEINE Inactive VICKS DAYQUIL SEVERE COLD/FLU TABS 1 tab every 6 hours prn 12/10 VICKS DAYQUIL SEVERE COLD/FLU TABS PHENYLEPHRINE -DM-GG-APAP TABS Inactive BACTRIM DS 800-160 MG TABS 1 twice a day BACTRIM DS 800- 160 MG TABS 393489 SULFAMETHOXAZOLE-TRIMETHOPRIM Inactive PROMETHAZINE HCL 25 MG TABS 1 four times a day as needed for vomiting PROMETHAZINE HCL 25 MG TABS 596232 PROMETHAZINE HCL Inactive ZYRTEC ALLERGY 10 MG CAPS 1 po qd ZY RTEC ALLERGY 10 MG CAPS CETIRIZINE HCL Inactive MACROBID 100 MG CAP 1 cap by mouth twice daily MACROBID 100 MG CAP 9499706 NITROFURANTOIN MONOHYD MACRO Inactive LOMOTIL 2.5-0.025 MG TABS 1 to 2 four times a day as needed for diarrhea LOMOTIL 2.5-0.025 MG TABS 1205072 DIPHENOXYLATE-A TROPINE Inactive CYCLOBENZAPRINE HCL 10 MG TABS 1/2 - 1 tablet by mouth three times daily as needed for muscle spasm/pain CYCLOBENZAP RINE HCL 10 MG TABS 214010 CYCLOBENZAPRINE HCL Inactive AMOXICILLIN 500 MG TABS 2 tabs twice a day for 10 days AMOXICILLIN 500 MG TABS 229427 AMOXICILLIN Inactive LOMOTIL 2.5-0.025 MG TAB 1 to 2 four times a day as needed f or diarrhea LOMOTIL 2.5-0.025 MG TAB 5011998 DIPHENOXYLATE-AT ROPINE Inactive ZOFRAN 4 MG ORAL TABS 1 TAB PO Q 6 HRS PRN NAUSEA 2014 ZOFRAN 4 MG ORAL TABS 993246 ONDANSETRON HCL Inactive CITRATE OF MAGNESIA ORAL SOLN 1 bottle today for constipation 20 07/10/15 CITRATE OF MAGNESIA ORAL SOLN 7203845 MAGNESIUM CITRATE Inactive PROMETHAZINE HCL 12.5 MG TABS 1 tablet by mouth every 6 hours as needed for nausea/vomiting PROMETHAZINE HCL 12.5 MG TABS 413610 PROMETHAZINE HCL Inactive PREDNISONE 20 MG TAB 1 tablet twice daily for 2 d ays, then 1 tablet once daily for 2 days PREDNISONE 20 MG TAB 639358 PREDNISONE Inac tive AMOXICILLIN 500 MG TABS take 1 tab po TID AMOXICILLIN 500 MG TABS 765836 AMOXICILLIN Inactive AMOXICILLIN 500 MG CAP 1 tab by mouth 3 times daily 09/23/20 AMOXICILLIN 500 MG CAP 690818 AMOXICILLIN Inactive ZITHROMAX 250 MG TAB 2 po today, then 1 po q days 2-5 ZITHROMAX 250 MG TAB 4534202 AZITHROMYCIN Inactive ZITHROMAX 250 MG TAB 2 po today, then 1 po q days 2-5 ZITHROMAX 250 MG TAB 8119808 AZITHROMYCIN Inactive AZITHROMYCIN 500 MG TABS 1 PO q day x 6 days 3 AZITHROMYCIN 500 MG TABS 4971457 AZITHROMYCIN Inactive BACTRIM 400-80 MG TABS take one po BID BA CTRIM 400-80 MG TABS 609340 SULFAMETHOXAZOLE-TRIMETHOPRIM Inactive AZITHROMYCIN 250 MG TABS 2 po qd x 1 day, then 1 po qd x 4 days AZITHROMYCIN 250 MG TABS 7593940 AZITHROMYCIN Inactiv e PREDNISONE 20 MG TAB 2 tabs daily for 3 days, 1 t ab daily for 3 days, 1/2 tab daily for 2 days PREDNISONE 20 MG TAB 670556 PREDNISON E Inactive ZITHROMAX 250 MG TAB 2 po today, then 1 po q days 2-5 ZITHROMAX 250 MG TAB 2428298 AZITHROMYCIN Inactive FLAGYL 500 MG TAB 1 tablet by mouth two times daily 07/11/29 FLAGYL 500 MG TAB 021525 METRONIDAZOLE Inactive AUGMENTIN 875-125 MG TAB 1 tab by mouth twice daily with food 20 08/12/16 AUGMENTIN 875-125 MG TAB 283136 AMOXICILLIN-POT CLAVULA ANGELO Inactive NAPROXEN 500 MG TAB one tab PO BID NAPROXEN 500 MG TAB 586279 NAPROXEN Inactive PREDNISONE 20 MG TAB 2 tabs daily for 3 days, 1 t ab daily for 3 days, 1/2 tab daily for 2 days PREDNISONE 20 MG TAB 387004 PREDNISON E Inactive AZITHROMYCIN 250 MG TABS 2 po qd x 1 day, then 1 po qd x 4 days AZITHROMYCIN 250 MG TABS 8861911 AZITHROMYCIN Inactiv e PREDNISONE 20 MG TAB 2 tabs daily for 3 days, 1 t ab daily for 3 days, 1/2 tab daily for 2 days PREDNISONE 20 MG TAB 192492 PREDNISON E Inactive Advance Directives Directive Description [...] Panel - Chemistry sodium, serum 136 mmol/L 127-357 4794/04/26 carbon dioxide, venous blood 29.9 mmol/L 21.0-32 [...] 284 10^3/MM^3 10*3/mm3 142-424 Lab Report: Chlamydia/GC APTIMA/[id number] - Lab chlamydia DNA probe NOT DETECTED NOT DETECTED Lab Report: Chlamydia/GC APTIMA/14175 - Microbiology Neisseria gonorrhoeae DNA probe NOT DETECTED NO T DETECTED Lab Report: Comp. Metabolic Panel - Chem istry sodium, serum 139 mmol/L 393-624 0641/12/15 carbon dioxide, venous blood 30.2 mmol/L 21.0-32 .0 potassium, serum 3.4 mmol/L 3.5-5.2 chloride, serum 101 mmol/L 98-107 blood glucose 92 mg/dL 65-110 urea nitrogen, blood 5 mg/dL 7-18 creatinine, serum 0.81 mg/dL 0.55-1.30 alanine aminotransferase (SGPT), serum 20 U/L 12-78 aspartate aminotransferase (SGOT), serum 10 U/L 15-37 calcium, serum 8.4 mg/dL 8.5-10.1 bilirubin, serum, total 0.60 mg/dL 0.00-1.00 Lab Report: HIV-1/2 Agn/Darcy/81842, HEPAT ITIS PANEL, ACUTE W/REFLE - Chemistry [...] pH, urine, semiquantitative 5.5 5.0-8.5 [facility]/MICRO, AUTO - Chemistry protein, [...] Negative Encounters Code Encounter Date Provider Facility CPT-99613 Level 3 Est. Patient 16:40:54 CDT Jose Zhong MD [facility] CPT-42045 Level 2 Est. Patient 13:01:13 CDT [facility] CPT-65248 Level 3 Est. Patient 11:55:30 [employer]SE [employer] Jono black DO [facility] CPT-82677 Level 3 Est. Patient 09:52:36 HOSE MAKER Steve CRAYON SAWYER [facility] CPT-91397 Level 3 Est. Patient 16:25:33 HOSE MAKER Rich Rosales MD [facility] CPT-48966 Level 3 Est. Patient 20:33:55 CDT Arie mcqueen MD [facility] CPT-26000 Level 3 Est. Patient 14:18:20 CDT Rich Rosales MD [facility] CPT-47235 Level 4 Est. Patient 09:34:31 CDT Arie mcqueen MD [facility] CPT-63680 Level 3 Est. Patient 09:08:55 HOSE MAKER Liliana vincent MD PhD [facility]-48625 Level 3 Est. Patient 16:44:07 HOSE MAKER Arie mcqueen MD [facility] CPT-03958 Level 3 Est. Patient 10:44:27 CDT Arie mcqueen MD [facility] CPT-41276 Level 3 Est. Patient 08:55:41 CDT Jose Zhong MD [facility] CPT-47848 Level 3 Est. Patient 18:37:31 CDT Liliana vincent MD PhD [facility] CPT-89886 Level 3 Est. Patient 14:28:23 CDT Abelardo HERNANDEZ [facility] CPT-16591 Level 3 Est. Patient 15:18:13 HOSE MAKER Arie mcqueen MD [facility] CPT-68644 Level 3 Est. Patient 10:11:29 HOSE MAKER Arie mcqueen MD [facility] CPT-48600 Level 3 Est. Patient 10:55:57 HOSE MAKER Jono black DO [facility] CPT-68869 Level 3 Est. Patient 17:29:05 CDT Arie mcqueen MD [facility] Procedures Code Procedure Name Date Entry Date Standard Desc ription CPT-05673 Abd compl w upright 09:07:26 HOSE [employer] CPT-40175 Ear Wash 16:12:47 HOSE [employer]KER CPT-OV Office Visit 11:12:01 CDT CPT-OV Office Visit 15:30:23 CDT CPT-02353 Sono pelvis non OB uterus ovaries cervix 15:50:44 CDT CPT-32157 Hand comp min 3V 16:42:32 CDT CPT-82476 Abd compl w upright 12:17:01 CDT CPT-55745 Nexplanon Placement 15:07:39 HOSE MAKER CPT-96686 Removal of IUD 15:07:39 HOSE MAKER CPT-09269 TB Tubersol 12:09:32 CDT CPT-54898 TB Tubersol 13:55:43 CDT
--- OUTSIDE RECORDS SUMMARY | 2020-03-03 08:08 | XMS REPORT | Clinical Summary ---
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 Nausea alone URI 465.9 Active Jono Gagnon DO Acu te upper respiratory infections of unspecified site Allergic rhinitis 477.9 Active Brii Christianson PRN Allergic rhinitis, cause unspecified Abdominal pain, right lower quadrant 789.03 Active Jose Zhong MD Abdominal pain, right lower quadrant Urinary frequency 788.41 Inactive Roseann Crawford Urinary frequency Urinary frequency 788.41 Active 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, DOPSTER Urinary frequency Sinusitis - acute 461.9 Active Brii Christianson PRN Acute sinusitis, unspecified Anxiety with depression 300.4 Active 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 Dysthymic disorder URI 465.9 Active Jono Gagnon DO Acu te upper respiratory infections of unspecified site Vaginal bleeding 623.8 Active rBii MARROQUIN RN Other specified noninflammatory disorders of vagina High risk sexual behavior V69.2 Active Arie Casper MD High-risk sexual behavior GERD 530.81 Active Arie Casper MD Esophageal reflux Encounter for surveillance of implantable subdermal contraceptiv e Active 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 PANTOPRAZOLE SODIUM 75740618684 No Longer Active Arie Casper MD Active BACTRIM DS 800-160 MG ORAL TABLET 1 tab by mouth twice daily 201 05/02/30 TRIMETHOPRIM-SULFAMETHOXAZOLE 91728450709 No Longer Active R [facility] Ty Active NEXPLANON IMPLANT right arm subcutaneously ETONOGESTREL IMPL 80966196073 No Longer Active Brii Larson APRN Acti ve TUSSIONEX PENNKINETIC ER 10-8 MG/5ML ORAL SUSPENSION E XTENDED RELEASE 5ml po q12hr PRN Cough HYDROCOD POLST-CHLORPHEN POLST 5 2083468366 No Longer Active Brii Larson APRN Active CETIRIZINE HCL 10 MG ORAL TABLET 1 po qd PRN Allergies CETIRIZINE HCL 41050581507 No Longer Active Brii Larson APRN Ac tive PREDNISONE 20 MG ORAL TABLET 2 tabs daily for 3 days, 1 tab daily for 3 days, 1/2 tab daily for 2 days PREDNISONE 15030076615 No Longer Active Arie Casper MD Active LOMOTIL 2.5-0.025 MG ORAL TABLET 1 tab po four times a day as needed for diarrhea DIPHENOXYLATE-ATROPINE 54797413869 No Lo nger Active Arie Casper MD Active ZOLOFT 50 MG ORAL TABLET 1 tablet by mouth daily 12/08 SERTRALINE HCL 53603516288 No Longer Active Arie Casper MD Ac tive NAPROXEN 500 MG ORAL TABLET Take 1 tab BID NAPR OXEN 28116809601 No Longer Active Arie Casper MD Active CEFDINIR 300 MG ORAL CAPSULE 1 po BID x 10 days CEFDINIR 67113025677 No Longer Active Brii Larson APRN Active PREDNISONE 20 MG ORAL TABLET 1 tablet daily for airway inflammat ion PREDNISONE 87781295576 No Longer Active Brii Larson APRN Active CEFDINIR 300 MG ORAL CAPSULE 1 po BID x 10 days CEFDINIR 41429017221 No Longer Active Jono Gagnon DO Active FLONASE 50 MCG/ACT NASAL SUSPENSION 1 spray each nostr il twice daily for allergies and runny nose until gone FLUT ICASONE PROPIONATE 06974979785 No Longer Active Jono Gagnon DO Active ALPRAZOLAM 0.25 MG ORAL TABLET 1 tablet by mouth every 8 hours as needed for stress ALPRAZOLAM 63006902029 No Longer Active Jono Gagnon DO Active ZITHROMAX Z-EMIL 250 MG ORAL TABLET 2 today, then 1 daily for 4 d ays AZITHROMYCIN 05807654406 No Longer Active Arie Casper MD Active PREDNISONE 20 MG ORAL TABLET 2 tabs daily for 3 days, 1 tab daily for 3 days, 1/2 tab daily for 2 days PREDNISONE 37737391592 No Longer Active Brii Larson APRN Active PREDNISONE 20 MG ORAL TABLET 1 tablet twice daily for 2 days, then 1 tablet once daily for 2 days PREDNISONE 06615991473 No Longer Active Brii Larson APRN Active PROMETHAZINE HCL 12.5 MG ORAL TABLET 1 tablet by mouth every 6 hours as needed for nausea/vomiting PROMETHAZINE HCL 98877400587 No L onger Active Jono Gagnon DO Active CITRATE OF MAGNESIA ORAL SOLUTION 1 bottle today for constipatio n MAGNESIUM CITRATE 26423272145 No Longer Active Jono Gagnon DO Active ZOFRAN 4 MG ORAL TABLET 1 TAB PO Q 6 HRS PRN NAUSEA 07/10/15 ONDANSETRON HCL 05366424388 No Longer Active Brii Larson APRN A ctive LOMOTIL 2.5-0.025 MG ORAL TABLET 1 to 2 four times a day as needed for diarrhea DIPHENOXYLATE-ATROPINE 22121898993 No Longer Active January Larson APRN Active AMOXICILLIN 500 MG ORAL TABLET 2 tabs twice a day for 10 days 20 07/09/11 AMOXICILLIN 86070342895 No Longer Active Biri Larson APRN Active CYCLOBENZAPRINE HCL 10 MG ORAL TABLET 1/2 - 1 tablet b y mouth three times daily as needed for muscle spasm/pain CYCLOBENZAPRINE HCL 00073371888 No Longer Active Arie Casper MD Active LOMOTIL 2.5-0.025 MG ORAL TABLET 1 to 2 four times a day as needed for diarrhea DIPHENOXYLATE-ATROPINE 10713751513 No Longer Active Fozia Casper MD Active MACROBID 100 MG ORAL CAPSULE 1 cap by mouth twice daily NITROFURANTOIN MONOHYD MACRO 94613741419 No Longer Active Arie Casper MD Active ZYRTEC ALLERGY 10 MG ORAL CAPSULE 1 po qd CE TIRIZINE HCL 79706689332 No Longer Active Arie Casper MD Active AZITHROMYCIN 250 MG ORAL TABLET 2 po qd x 1 day, then 1 po q d x 4 days AZITHROMYCIN 28222068567 No Longer Active Jillarlen Fra naomi ASIC DESIGN ENGINEER Active PREDNISONE 20 MG ORAL TABLET 2 tabs daily for 3 days, 1 tab daily for 3 days, 1/2 tab daily for 2 days PREDNISONE 44665815988 No Longer Active Jillina Fradeepl ASIC DESIGN ENGINEER Active PROMETHAZINE HCL 25 MG ORAL TABLET 1 four times a day as nee ded for vomiting PROMETHAZINE HCL 85808601587 No Longer Active Myrna Roberto MD Active BACTRIM DS 800-160 MG ORAL TABLET 1 twice a day 05/30 SULFAMETHOXAZOLE-TRIMETHOPRIM 73709480798 No Longer Active Myrna Roberto MD Active VICKS DAYQUIL SEVERE COLD/FLU TABLET 1 tab every 6 hours prn 201 02/22/17 [id number] TABS 94066567756 No Longer Active Chris Roberto MD Active GUAIFENESIN-CODEINE 100-10 MG/5ML ORAL SYRUP 2 tsp every 6 hours prn GUAIFENESIN-CODEINE 80371429479 No Longer Active Myrna Roberto MD Active NAPROXEN 500 MG ORAL TABLET one tab PO BID NAPR OXEN 66477564586 No Longer Active Myrna Roberto MD Active AUGMENTIN 875-125 MG ORAL TABLET 1 tab by mouth twice daily with food AMOXICILLIN-POT CLAVULANATE 90973024231 No Longer Act zaid Liliana Estrada MD PhD Active AMOXICILLIN 500 MG ORAL CAPSULE 1 tab by mouth 3 times daily 201 02/21/05 AMOXICILLIN 14269598359 No Longer Active Liliana Estrada MD PhD Active TESSALON PERLES 100 MG ORAL CAPSULE 1 tablet by mouth 3 times da cory BENZONATATE 17918885638 No Longer Active Liliana Estrada MD PhD Active FLAGYL 500 MG ORAL TABLET 1 tablet by mouth two times daily 2014 METRONIDAZOLE 16837720859 No Longer Active Nilam Doran tive ZITHROMAX 250 MG ORAL TABLET 2 po today, then 1 po q days 2-5 20 06/08/16 AZITHROMYCIN 07319702762 No Longer Active Arie Casper MD Active VITAMINS 0.8 MG ORAL TABLET take 1 tab po qday [id number] 51616983318 No Longer Active Arie Casper MD Active IBUPROFEN 800 MG ORAL TABLET take one po Q 8 hours 201 02/01/16 IBUPROFEN 91876259219 No Longer Active Arie Casper MD Acti ve [facility] TUSSIN COUGH/COLD CF 5-10-100 MG/5ML ORAL LIQUID 2 teasp oons every 4 hours [id number] 84495866183 No Longer Active Blaine Casper MD Active COMTREX COLD/COUGH DAY/NITE MS 5-2-10-325 MG ORAL 2 caps deja ry 4 hours [id number] 97367608464 No Longer Active Landon Casper MD Active CHLORASEPTIC MAX SORE THROAT 15-10 MG MOUTH/THROAT LOZENGE 1 every 2 hours prn BENZOCAINE-MENTHOL 35463537958 No Longer Active Arie Casper MD Active PREDNISONE 20 MG ORAL TABLET 2 tabs daily for 3 days, 1 tab daily for 3 days, 1/2 tab daily for 2 days PREDNISONE 23933921734 No Longer Active Jose Zhong MD Active AZITHROMYCIN 250 MG ORAL TABLET 2 po qd x 1 day, then 1 po q d x 4 days AZITHROMYCIN 39200389264 No Longer Active Jose Mcwilliams MD Active ZOFRAN ODT 4 MG ORAL TABLET DISINTEGRATING 1 po q6hr PRN Nausea ONDANSETRON 48939949025 No Longer Active Rich Rosales MD Active ZOFRAN 4 MG ORAL TABLET 1 tablet every 4 hours ONDANSETRON HCL 57621852910 No Longer Active Rich Rosales MD Activ e MUCINEX 600 MG ORAL TABLET EXTENDED RELEASE 12 HOUR Ta ke 1-2 tablets every 12 hours GUAIFENESIN 82824954663 No Longer Active Rich Rosales MD Active BACTRIM 400-80 MG ORAL TABLET take one po BID SULFAMETHOXAZOLE-TRIMETHOPRIM 66919418885 No Longer Active Abelardo HERNANDEZ Active AZITHROMYCIN 500 MG ORAL TABLET 1 PO q day x 6 days 20 03/02/23 AZITHROMYCIN 98724100206 No Longer Active Tin HERNANDEZ Activ e ZITHROMAX 250 MG ORAL TABLET 2 po today, then 1 po q days 2-5 20 10/03/08 AZITHROMYCIN 86872798713 No Longer Active Arie Casper MD Active ZITHROMAX 250 MG ORAL TABLET 2 po today, then 1 po q days 2-5 20 09/23/25 AZITHROMYCIN 02528029414 No Longer Active Arie Casper MD Active AMOXICILLIN 500 MG ORAL CAPSULE 1 tab by mouth 3 times daily 201 11/24/09 AMOXICILLIN 43141893707 No Longer Active Arie Casper MD Active BACTRIM DS 800-160 MG ORAL TABLET 1 tab by mouth twice daily 201 11/03/14 TRIMETHOPRIM-SULFAMETHOXAZOLE 20021961391 No Longer Active Fozia Casper MD Active AMOXICILLIN 500 MG ORAL TABLET take 1 tab po TID 08/05 AMOXICILLIN 25317278773 No Longer Active Arie Casper MD Acti ve BACTRIM DS 800-160 MG ORAL TABLET 1 tab by mouth twice daily 201 11/03/14 BACTRIM DS 800-160 MG ORAL TABLET 117521 TRIMETHOPRIM-SULFAMETHOXAZOLE Inactive MUCINEX 600 MG ORAL TABLET EXTENDED RELEASE 12 HOUR Ta ke 1-2 tablets every 12 hours MUCINEX 600 MG ORAL TABLET EXTENDED RELEA SE 12 HOUR GUAIFENESIN Inactive ZOFRAN 4 MG ORAL TABLET 1 tablet every 4 hours ZOFRAN 4 MG ORAL TABLET 222773 ONDANSETRON HCL Inactive ZOFRAN ODT 4 MG ORAL TABLET DISINTEGRATING 1 po q6hr PRN Nausea ZOFRAN ODT 4 MG ORAL TABLET DISINTEGRATING 357006 ONDAN SETRON Inactive CHLORASEPTIC MAX SORE THROAT 15-10 MG MOUTH/THROAT LOZENGE 1 every 2 hours prn CHLORASEPTIC MAX SORE THROAT 15-10 MG MOUTH/THROAT LOZENGE BENZOCAINE-MENTHOL Inactive COMTREX COLD/COUGH DAY/NITE MS 5-2-10-325 MG ORAL 2 caps deja ry 4 hours COMTREX COLD/COUGH DAY/NITE MS 5-2-10-325 MG ORA L [id number] Inactive [facility] TUSSIN COUGH/COLD CF 5-10-100 MG/5ML ORAL LIQUID 2 teasp oons every 4 hours [facility] TUSSIN COUGH/COLD CF 5-10-100 MG/5ML ORAL LI QUID [id number] Inactive IBUPROFEN 800 MG ORAL TABLET take one po Q 8 hours 201 02/01/16 IBUPROFEN 800 MG ORAL TABLET 671682 IBUPROFEN Inactive VITAMINS 0.8 MG ORAL TABLET take 1 tab po qday VITAMINS 0.8 MG ORAL TABLET [id number] E-FA Inactive TESSALON PERLES 100 MG ORAL CAPSULE 1 tablet by mouth 3 times da cory TESSALON PERLES 100 MG ORAL CAPSULE 871665 BENZONATATE Inactive AMOXICILLIN 500 MG ORAL CAPSULE 1 tab by mouth 3 times daily 201 02/21/05 AMOXICILLIN 500 MG ORAL CAPSULE 482284 AMOXICILLIN Inactive GUAIFENESIN-CODEINE 100-10 MG/5ML ORAL SYRUP 2 tsp every 6 hours prn GUAIFENESIN-CODEINE 100-10 MG/5ML ORAL SYRUP 741525 GUAIFENESIN-CODEINE Inactive VICKS DAYQUIL SEVERE COLD/FLU TABLET 1 tab every 6 hours prn 201 02/22/17 VICKS DAYQUIL SEVERE COLD/FLU TABLET PHENYLEPHRI [id number]-APAP TABS Inactive BACTRIM DS 800-160 MG ORAL TABLET 1 twice a day 05/30 BACTRIM DS 800-160 MG ORAL TABLET 597516 SULFAMETHOXAZOLE-TRIMETHOPRIM Inactiv e PROMETHAZINE HCL 25 MG ORAL TABLET 1 four times a day as nee ded for vomiting PROMETHAZINE HCL 25 MG ORAL TABLET 753334 PROMETHAZINE HCL Inactive ZYRTEC ALLERGY 10 MG ORAL CAPSULE 1 po qd ZYRTEC ALLERGY 10 MG ORAL CAPSULE CETIRIZINE HCL Inactive MACROBID 100 MG ORAL CAPSULE 1 cap by mouth twice daily MACROBID 100 MG ORAL CAPSULE 2838965 NITROFURANTOIN MONOHYD MACRO In active LOMOTIL 2.5-0.025 MG ORAL TABLET 1 to 2 four times a day as needed for diarrhea LOMOTIL 2.5-0.025 MG ORAL TABLET 6815163 DIPHENOXYLATE-ATROPINE Inactive CYCLOBENZAPRINE HCL 10 MG ORAL TABLET 1/2 - 1 tablet b y mouth three times daily as needed for muscle spasm/pain CYCLOBEN ZAPRINE HCL 10 MG ORAL TABLET 834466 CYCLOBENZAPRINE HCL Inactive AMOXICILLIN 500 MG ORAL TABLET 2 tabs twice a day for 10 days 20 07/09/11 AMOXICILLIN 500 MG ORAL TABLET 282915 AMOXICILLIN I nactive LOMOTIL 2.5-0.025 MG ORAL TABLET 1 to 2 four times a day as needed for diarrhea LOMOTIL 2.5-0.025 MG ORAL TABLET 9255660 DIPHENOXYLATE-ATROPINE Inactive ZOFRAN 4 MG ORAL TABLET 1 TAB PO Q 6 HRS PRN NAUSEA 07/10/15 ZOFRAN 4 MG ORAL TABLET 473499 ONDANSETRON HCL Inactive CITRATE OF MAGNESIA ORAL SOLUTION 1 bottle today for constipatio n CITRATE OF MAGNESIA ORAL SOLUTION 0156482 MAGNESIUM CITR ATE Inactive PROMETHAZINE HCL 12.5 MG ORAL TABLET 1 tablet by mouth every 6 hours as needed for nausea/vomiting PROMETHAZINE HCL 12.5 MG ORA L TABLET 401657 PROMETHAZINE HCL Inactive PREDNISONE 20 MG ORAL TABLET 1 tablet twice daily for 2 days, then 1 tablet once daily for 2 days PREDNISONE 20 MG ORAL TABLET 983850 PREDNISONE Inactive ALPRAZOLAM 0.25 MG ORAL TABLET 1 tablet by mouth every 8 hours as needed for stress ALPRAZOLAM 0.25 MG ORAL TABLET 156079 ALPRA ZOLAM Inactive FLONASE 50 MCG/ACT NASAL SUSPENSION 1 spray each nostr il twice daily for allergies and runny nose until gone FLON ASE 50 MCG/ACT NASAL SUSPENSION 9290462 FLUTICASONE PROPIONATE Inactive PREDNISONE 20 MG ORAL TABLET 1 tablet daily for airway inflammat ion PREDNISONE 20 MG ORAL TABLET 458165 PREDNISONE [place] ctive NAPROXEN 500 MG ORAL TABLET Take 1 tab BID NAPROXEN 500 MG ORAL TABLET 055296 NAPROXEN Inactive ZOLOFT 50 MG ORAL TABLET 1 tablet by mouth daily 12/08 ZOLOFT 50 MG ORAL TABLET 001694 SERTRALINE HCL Inactive LOMOTIL 2.5-0.025 MG ORAL TABLET 1 tab po four times a day as needed for diarrhea LOMOTIL 2.5-0.025 MG ORAL TABLET 9057293 DIPHENOXYLATE-ATROPINE Inactive CETIRIZINE HCL 10 MG ORAL TABLET 1 po qd PRN Allergies CETIRIZINE HCL 10 MG ORAL TABLET 2761251 CETIRIZINE HCL Inactiv e TUSSIONEX PENNKINETIC ER 10-8 MG/5ML ORAL SUSPENSION E XTENDED RELEASE 5ml po q12hr PRN Cough TUSSIONEX PENNKINETI C ER 10-8 MG/5ML ORAL SUSPENSION EXTENDED RELEASE HYDROCOD POLST-CHLORPHEN POLST I nactive NEXPLANON IMPLANT right arm subcutaneously NEXPLANON IMPLANT ETONOGESTREL IMPL Inactive PROTONIX 40 MG ORAL TABLET DELAYED RELEASE 1 po q a.m. PROTONIX 40 MG ORAL TABLET DELAYED RELEASE 372833 PANTOPRAZOLE SODI UM Inactive AMOXICILLIN 500 MG ORAL TABLET take 1 tab po TID 08/05 AMOXICILLIN 500 MG ORAL TABLET 104668 AMOXICILLIN Inactive AMOXICILLIN 500 MG ORAL CAPSULE 1 tab by mouth 3 times daily 201 11/24/09 AMOXICILLIN 500 MG ORAL CAPSULE 520231 AMOXICILLIN Inactive ZITHROMAX 250 MG ORAL TABLET 2 po today, then 1 po q days 2-5 20 09/23/25 ZITHROMAX 250 MG ORAL TABLET 392593 AZITHROMYCIN [place] ctive ZITHROMAX 250 MG ORAL TABLET 2 po today, then 1 po q days 2-5 20 10/03/08 ZITHROMAX 250 MG ORAL TABLET 389341 AZITHROMYCIN [place] ctive AZITHROMYCIN 500 MG ORAL TABLET 1 PO q day x 6 days 20 03/02/23 AZITHROMYCIN 500 MG ORAL TABLET 2557001 AZITHROMYCIN Inactive BACTRIM 400-80 MG ORAL TABLET take one po BID BACTRIM 400- 80 MG ORAL TABLET 913641 SULFAMETHOXAZOLE-TRIMETHOPRIM Inactive AZITHROMYCIN 250 MG ORAL TABLET 2 po qd x 1 day, then 1 po q d x 4 days AZITHROMYCIN 250 MG ORAL TABLET 263760 AZITHROMY ALLISON Inactive PREDNISONE 20 MG ORAL TABLET 2 tabs daily for 3 days, 1 tab daily for 3 days, 1/2 tab daily for 2 days PREDNISONE 20 MG ORAL T ABLET 944018 PREDNISONE Inactive ZITHROMAX 250 MG ORAL TABLET 2 po today, then 1 po q days 2-5 20 06/08/16 ZITHROMAX 250 MG ORAL TABLET 810507 AZITHROMYCIN [place] ctive FLAGYL 500 MG ORAL TABLET 1 tablet by mouth two times daily 2014 FLAGYL 500 MG ORAL TABLET 659774 METRONIDAZOLE Inacti ve AUGMENTIN 875-125 MG ORAL TABLET 1 tab by mouth twice daily with food AUGMENTIN 875-125 MG ORAL TABLET 717003 AMOXICIL ELSA-POT CLAVULANATE Inactive NAPROXEN 500 MG ORAL TABLET one tab PO BID NAPROXEN 500 MG ORAL TABLET 468346 NAPROXEN Inactive PREDNISONE 20 MG ORAL TABLET 2 tabs daily for 3 days, 1 tab daily for 3 days, 1/2 tab daily for 2 days PREDNISONE 20 MG ORAL T ABLET 713467 PREDNISONE Inactive AZITHROMYCIN 250 MG ORAL TABLET 2 po qd x 1 day, then 1 po q d x 4 days AZITHROMYCIN 250 MG ORAL TABLET 539710 AZITHROMY ALLISON Inactive PREDNISONE 20 MG ORAL TABLET 2 tabs daily for 3 days, 1 tab daily for 3 days, 1/2 tab daily for 2 days PREDNISONE 20 MG ORAL T ABLET 128442 PREDNISONE Inactive ZITHROMAX Z-EMIL 250 MG ORAL TABLET 2 today, then 1 daily for 4 d ays ZITHROMAX Z-EMIL 250 MG ORAL TABLET 998903 AZITHROMYCIN Inactive CEFDINIR 300 MG ORAL CAPSULE 1 po BID x 10 days 12/18 CEFDINIR 300 MG ORAL CAPSULE 560531 CEFDINIR Inactive CEFDINIR 300 MG ORAL CAPSULE 1 po BID x 10 days CEFDINIR 300 MG ORAL CAPSULE 20030127 CEFDINIR Inactive PREDNISONE 20 MG ORAL TABLET 2 tabs daily for 3 days, 1 tab daily for 3 days, 1/2 tab daily for 2 days PREDNISONE 20 MG ORAL T ABLET 830651 PREDNISONE Inactive BACTRIM DS 800-160 MG ORAL TABLET 1 tab by mouth twice daily 201 05/02/30 BACTRIM DS 800-160 MG ORAL TABLET 762553 TRIMETHOPRIM-SULFAMETHOXAZOLE Inactive Advance Directives Directive Description Start [...] Unit Range Description Lab Report: CBC, Quant [facility] - Hematology leukocyte count, blood [...] 263 10^3/MM^3 10*3/mm3 [phone] Lab Report: Chlamydia/GC APTIMA/86350 - Lab chlamydia DNA probe NOT DETECTED NOT DETECTED Lab Report: Chlamydia/GC APTIMA/07514 - Microbiology Neisseria gonorrhoeae DNA probe NOT [...] 5.0-8.5 Encounters Code Encounter Date Provider Facility CPT-72478 Level 3 Est. Patient 10:21:41 [employer] INSPECTOR Arie mcqueen MD [facility] CPT-97981 Level 3 Est. Patient 11:35:15 [employer] INSPECTOR Arie mcqueen MD [facility] CPT-47123 Level 3 Est. Patient 15:40:28 CDT Brii And erson ASIC DESIGN ENGINEER [facility] CPT-66094 Level 3 Est. Patient 16:40:36 CDT Arie mcqueen MD [facility] CPT-12856 Level 4 Est. Patient 15:29:22 [employer]IP INSPECTOR Arie mcqueen MD [facility] CPT-92840 Level 3 Est. Patient 15:18:16 [employer] STRIP INSPECTOR Jono black [facility] CPT-31750 Level 4 Est. Patient 12:08:40 [employer] STRIP INSPECTOR Brii And erson [facility] CPT-93436 Level 3 Est. Patient 09:24:42 CDT Brii And erson [facility] CPT-28006 Level 3 Est. Patient 09:12:56 CDT Arie mcqueen MD [facility] CPT-37088 Level 3 Est. Patient 16:40:54 CDT Jose Zhong MD [facility] CPT-89910 Level 2 Est. Patient 13:01:13 CDT Brii La erson [facility] CPT-41188 Level 3 Est. Patient 11:55:30 [employer] INSPECTOR Jono black [facility] CPT-54679 Level 3 Est. Patient 09:52:36 [employer]IP INSPECTOR Brii And melinaon ASIC DESIGN ENGINEER [facility] CPT-96747 Level 3 Est. Patient 16:25:33 [employer] STRIP INSPECTOR Rich Rosales MD [facility] CPT-69758 Level 3 Est. Patient 20:33:55 CDT Arie mcqueen MD [facility] CPT-04664 Level 3 Est. Patient 14:18:20 CDT Rich Rosales MD [facility] CPT-70383 Level 4 Est. Patient 09:34:31 CDT Arie mcqueen MD [facility] CPT-54604 Level 3 Est. Patient 09:08:55 [employer] INSPECTOR Liliana vincent MD PhD [facility] CPT-77727 Level 3 Est. Patient 16:44:07 [employer]IP INSPECTOR Arie mcqueen MD [facility] CPT-81358 Level 3 Est. Patient 10:44:27 CDT Arie mcqueen MD [facility] CPT-98298 Level 3 Est. Patient 08:55:41 CDT Jose Zhong MD [facility] CPT-16746 Level 3 Est. Patient 18:37:31 CDT Liliana vincent MD PhD [facility] CPT-48476 Level 3 Est. Patient 14:28:23 CDT Abelardo HERNANDEZ [facility] CPT-81594 Level 3 Est. Patient 15:18:13 [employer] INSPECTOR Arie mcqueen MD [facility] CPT-21346 Level 3 Est. Patient 10:11:29 [employer]IP INSPECTOR Arie mcqueen MD [facility] CPT-75299 Level 3 Est. Patient 10:55:57 [employer]IP INSPECTOR Jono black DO [facility] CPT-03622 Level 3 Est. Patient 17:29:05 CDT Arie mcqueen MD [facility] Procedures Code Procedure Name Date Entry Date Standard Desc ription CPT-46554 Nexplanon Removal 15:40:28 CDT CPT-77608 Sono transvag pelvis non OB uterus ovari es cervix - XRAY USE ONLY 08:58:14 [employer] INSPECTOR CPT-48733 UA w micro - LAB USE ONLY 16:04:56 [employer] INSPECTOR 2015 CPT-80237 Wet Prep/GEN - LAB USE ONLY 16:04:56 [employer]IP INSPECTOR 20 08/10/29 CPT-89522 First Vx - Ix admin via ID I M or jet injects without counseling by physician 16:57:10 CDT CPT-89482 Fluzone Preservative Free Intramuscular Suspension 16:57:10 CDT CPT-J0696 Rocephin 1000 mg (Ceftriaxone) 11:49:23 CDT CPT-J1040 Depo Medrol 80 mg (Methyl Prednisolone A cetate) 11:49:23 CDT CPT-J1100 Decadron 8mg (Dexamethasone) 11:49:23 CDT 2 CPT-84910 Abx/Therapy Injection 11:49:23 CDT CPT-02420 Abx/Therapy Injection 11:49:23 CDT CPT-55531 Abd compl w upright 09:07:26 [employer] INSPECTOR CPT-98339 Ear Wash 16:12:47 [employer] INSPECTOR CPT-OV Office Visit 11:12:01 CDT CPT-OV Office Visit 15:30:23 CDT CPT-20165 Sono pelvis non OB uterus ovaries cervix 15:50:44 CDT CPT-95412 Hand comp min 3V 16:42:32 CDT CPT-06585 Abd compl w upright 12:17:01 CDT CPT-06657 Nexplanon Placement 15:07:39 [employer] INSPECTOR CPT-83569 Removal of IUD 15:07:39 [employer]IP INSPECTOR CPT-57509 TB Tubersol 12:09:32 CDT CPT-51045 TB Tubersol 13:55:43 CDT
--- OUTSIDE RECORDS SUMMARY | 2020-03-03 08:09 | XMS REPORT | Clinical Summary ---
Author Author Admin, Diamante Marcelo Organization [facility] Address Unknown Phone Unavailable Allergies, Adverse [...] site Abdominal pain 789.00 Active Brii Larson OIM CONSULTANT Abdominal pain, unspecified site Diarrhea 787.91 Resolved [...] mention of infection Sinusitis 461.9 Active Rich Roasles MD Acute sinusitis, unspecified Cerumen impaction, right 380.4 Active Alex isamar Rosales MD Impacted cerumen Sore throat 462 Active Nilam Raida A cute pharyngitis Nausea 787.02 Active Brii Larson OIM CONSULTANT Nausea alone URI 465.9 Active Jono Gagnon [...] Anxiety with depression 300.4 Active Glenn Larson OIM CONSULTANT Dysthymic disorder URI 465.9 Active Jono Gagnon [...] MG TAB Take 1 tab BID NAPROXEN 260888817 15 Active Brii Larson APRN Active NEXPLANON IMPL Left arm subcutaneously ETONOGES TREL IMPL 21999349166 Active Brii Larson APRN Active CEFDINIR 300 MG CAPS 1 po BID x 10 days CEFDINI R 79531667689 No Longer Active Brii Larson APRN Active PREDNISONE 20 MG TAB 1 tablet daily for airway inflammation 2015 PREDNISONE 59332008239 No Longer Active Brii Larson APRN Active CEFDINIR 300 MG CAPS 1 po BID x 10 days CEFDINI R 14138937577 No Longer Active Jono W Kalin DO Active FLONASE 50 MCG/ACT SUSP 1 spray each nostril twice d aily for allergies and runny nose until gone FLUTICASONE PROPIONATE No Longe r Active Jono Gagnon DO Active ALPRAZOLAM 0.25 MG TAB 1 tablet by mouth every 8 hours as ne eded for stress ALPRAZOLAM 23994129917 No Longer Active Jono Gagnon DO Active ZOLOFT 50 MG TAB 1 tablet by mouth daily SERTRA LINE HCL 38578773144 Active Arie Casper MD Active LOMOTIL 2.5-0.025 MG TAB 1 tab po four times a day as needed for diarrhea DIPHENOXYLATE-ATROPINE 58321177673 Active Brii Larson APRN Active ZITHROMAX Z-EMIL 250 MG TABS 2 today, then 1 daily for 4 days 201 03/31/18 AZITHROMYCIN 42154456454 No Longer Active Arie Casper MD Active PROTONIX 40 MG ORAL TBEC 1 po q a.m. PANTOPRAZO LE SODIUM 03359226218 Active Carline Ochoa RPT,RMA Active PREDNISONE 20 MG TAB 2 tabs daily for 3 days, 1 t ab daily for 3 days, 1/2 tab daily for 2 days PREDNISONE 06884587158 No Longer Active Brii Larson APRN Active PREDNISONE 20 MG TAB 1 tablet twice daily for 2 d ays, then 1 tablet once daily for 2 days PREDNISONE 97147294208 No Longer Active Brii Larson APRN Active PROMETHAZINE HCL 12.5 MG TABS 1 tablet by mouth every 6 hours as needed for nausea/vomiting PROMETHAZINE HCL 83711541858 No Longe r Active Jono Gagnon DO Active CITRATE OF MAGNESIA ORAL SOLN 1 bottle today for constipation 20 07/10/15 MAGNESIUM CITRATE 59952823021 No Longer Active Jono Gagnon DO Active ZOFRAN 4 MG ORAL TABS 1 TAB PO Q 6 HRS PRN NAUSEA 2014 ONDANSETRON HCL 56089911579 No Longer Active Brii Larson APRN A ctive LOMOTIL 2.5-0.025 MG TAB 1 to 2 four times a day as needed f or diarrhea DIPHENOXYLATE-ATROPINE 71555519667 No Longer Active January Larson APRN Active AMOXICILLIN 500 MG TABS 2 tabs twice a day for 10 days AMOXICILLIN 32316682762 No Longer Active Brii Larson APRN Acti ve CYCLOBENZAPRINE HCL 10 MG TABS 1/2 - 1 tablet by mouth three times daily as needed for muscle spasm/pain CYCLOBENZAPRINE HCL 13874731866 No Longer Active Arie Casper MD Active LOMOTIL 2.5-0.025 MG TABS 1 to 2 four times a day as needed for diarrhea DIPHENOXYLATE-ATROPINE 02993284766 No Longer Active D freddy Casper MD Active MACROBID 100 MG CAP 1 cap by mouth twice daily NITROFURANTOIN MONOHYD MACRO 11424339177 No Longer Active Arie Casper MD Active ZYRTEC ALLERGY 10 MG CAPS 1 po qd CETIRIZINE HCL 77961358769 No Longer Active Arie Casper MD Active AZITHROMYCIN 250 MG TABS 2 po qd x 1 day, then 1 po qd x 4 days AZITHROMYCIN 91798128578 No Longer Active Jillina Franaomi CABRERA Active PREDNISONE 20 MG TAB 2 tabs daily for 3 days, 1 t ab daily for 3 days, 1/2 tab daily for 2 days PREDNISONE 23796302988 No Longer Active Jillina Franaomi CABRERA Active PROMETHAZINE HCL 25 MG TABS 1 four times a day as needed for vomiting PROMETHAZINE HCL 50520887260 No Longer Active Myrna Roberto MD Active BACTRIM DS 800-160 MG TABS 1 twice a day SULFAMETHOXAZOLE-TRIMETHOPRIM 47771763333 No Longer Active Myrna Roberto MD Active VICKS DAYQUIL SEVERE COLD/FLU TABS 1 tab every 6 hours prn 12/10 [id number]-APAP TABS 82990228405 No Longer Active Myrna leigh MD Active GUAIFENESIN-CODEINE 100-10 MG/5ML ORAL SYRP 2 tsp every 6 hours prn GUAIFENESIN-CODEINE 52181803602 No Longer Active Myrna Roberto MD Active NAPROXEN 500 MG TAB one tab PO BID NAPROXEN 332 86504170 No Longer Active Myrna Roberto MD Active AUGMENTIN 875-125 MG TAB 1 tab by mouth twice daily with food 20 08/12/16 AMOXICILLIN-POT CLAVULANATE 01873971272 No Longer Active Liliana Estrada MD PhD Active AMOXICILLIN 500 MG CAP 1 tab by mouth 3 times daily 08/12/16 AMOXICILLIN 17594852255 No Longer Active Liliana Estrada MD PhD Acti ve TESSALON PERLES 100 MG CAP 1 tablet by mouth 3 times daily 11/01 BENZONATATE 48444650489 No Longer Active Liliana Estrada MD PhD Active FLAGYL 500 MG TAB 1 tablet by mouth two times daily 07/11/29 METRONIDAZOLE 12629456310 No Longer Active Nilam Weber Active ZITHROMAX 250 MG TAB 2 po today, then 1 po q days 2-5 AZITHROMYCIN 58460082444 No Longer Active Arie Casper MD Acti ve VITAMINS 0.8 MG TABS take 1 tab po qday 08/08 [id number] 94473698237 No Longer Active Arie Casper MD Active IBUPROFEN 800 MG TABS take one po Q 8 hours IBU PROFEN 17686526394 No Longer Active Arie Casper MD Active [facility] TUSSIN COUGH/COLD CF 5-10-100 MG/5ML LIQD 2 teaspoons ev eliud 4 hours [id number]-[id number]-VT 76702404559 No Longer Active Blaine Casper MD Active COMTREX COLD/COUGH DAY/NITE MS 5-2-10-325 MG MISC 2 caps deja ry 4 hours [id number]-[id number]-APAP 18764568298 No Longer Active Da aleksandra Casper MD Active CHLORASEPTIC MAX SORE THROAT 15-10 MG LOZG 1 every 2 hours prn 2 BENZOCAINE-MENTHOL 38529878281 No Longer Active Arie Marcelo Active PREDNISONE 20 MG TAB 2 tabs daily for 3 days, 1 t ab daily for 3 days, 1/2 tab daily for 2 days PREDNISONE 35399699530 No Longer Active Jose Zhong MD Active AZITHROMYCIN 250 MG TABS 2 po qd x 1 day, then 1 po qd x 4 days AZITHROMYCIN 51755547989 No Longer Active Jose Zhong MD Active ZOFRAN ODT 4 MG TBDP 1 po q6hr PRN Nausea ONDAN SETRON 33862354796 No Longer Active Rich Rosales MD Active ZOFRAN 4 MG TABS 1 tablet every 4 hours ONDANSE JERRELL HCL 97530806333 No Longer Active Rich Rosales MD Active MUCINEX 600 MG [id number] Take 1-2 tablets every 12 hours GUAIFENESIN 03279759786 No Longer Active Rich Rosales MD Activ e BACTRIM 400-80 MG TABS take one po BID SULFAMETHOXAZOLE-TRIMETHOPRIM 66262135429 No Longer Active Abelardo HERNANDEZ Active AZITHROMYCIN 500 MG TABS 1 PO q day x 6 days AZ ITHROMYCIN 38308422626 No Longer Active Tin HERNANDEZ Active ZITHROMAX 250 MG TAB 2 po today, then 1 po q days 2-5 AZITHROMYCIN 32473680706 No Longer Active Arie Casper MD Acti ve ZITHROMAX 250 MG TAB 2 po today, then 1 po q days 2-5 AZITHROMYCIN 85970209384 No Longer Active Arie Casper MD Acti ve AMOXICILLIN 500 MG CAP 1 tab by mouth 3 times daily 20 09/23/20 AMOXICILLIN 38367574029 No Longer Active Arie Casper MD Acti ve BACTRIM DS 800-160 MG TAB 1 tab by mouth twice daily 2 TRIMETHOPRIM-SULFAMETHOXAZOLE 13762750983 No Longer Active Arie Casper MD Active AMOXICILLIN 500 MG TABS take 1 tab po TID AMOXI CILLIN 75583536015 No Longer Active Arie Casper MD Active BACTRIM DS 800-160 MG TAB 1 tab by mouth twice daily 2 BACTRIM DS 800-160 MG TAB 673130 TRIMETHOPRIM-SULFAMETHOXAZOLE Inac tive MUCINEX 600 MG [id number] Take 1-2 tablets every 12 hours MUCINEX 600 MG [id number] GUAIFENESIN Inactive ZOFRAN 4 MG TABS 1 tablet every 4 hours ZOFRAN 4 MG TABS 872937 ONDANSETRON HCL Inactive ZOFRAN ODT 4 MG TBDP 1 po q6hr PRN Nausea ZOFRAN ODT 4 MG TBDP 315711 ONDANSETRON Inactive CHLORASEPTIC MAX SORE THROAT 15-10 MG LOZG 1 every 2 hours prn 2 CHLORASEPTIC MAX SORE THROAT 15-10 MG LOZG BENZO ARINA-MENTHOL Inactive COMTREX COLD/COUGH DAY/NITE MS 5-2-10-325 MG MISC 2 caps deja ry 4 hours COMTREX COLD/COUGH DAY/NITE MS 5-2-10-325 MG MIS C [id number] Inactive [facility] TUSSIN COUGH/COLD CF 5-10-100 MG/5ML LIQD 2 teaspoons ev eliud 4 hours [facility] TUSSIN COUGH/COLD CF 5-10-100 MG/5ML LIQD [id number]-ZC-HT Inactive IBUPROFEN 800 MG TABS take one po Q 8 hours IBUPROFEN 800 MG TABS IBUPROFEN Inactive VITAMINS 0.8 MG TABS take 1 tab po qday 08/08 VITAMINS 0.8 MG TABS NICHLEOT-VHC-RS-FA Inactive TESSALON PERLES 100 MG CAP 1 tablet by mouth 3 times daily 11/01 TESSALON PERLES 100 MG CAP 505359 BENZONATATE Inact zaid AMOXICILLIN 500 MG CAP 1 tab by mouth 3 times daily 08/12/16 AMOXICILLIN 500 MG CAP 521773 AMOXICILLIN Inactive GUAIFENESIN-CODEINE 100-10 MG/5ML ORAL SYRP 2 tsp every 6 hours prn GUAIFENESIN-CODEINE 100-10 MG/5ML ORAL SYRP 137251 GUAIFENESIN-CODEINE Inactive VICKS DAYQUIL SEVERE COLD/FLU TABS 1 tab every 6 hours prn 12/10 VICKS DAYQUIL SEVERE COLD/FLU TABS PHENYLEPHRINE -DM-GG-APAP TABS Inactive BACTRIM DS 800-160 MG TABS 1 twice a day BACTRIM DS 800- 160 MG TABS 897528 SULFAMETHOXAZOLE-TRIMETHOPRIM Inactive PROMETHAZINE HCL 25 MG TABS 1 four times a day as needed for vomiting PROMETHAZINE HCL 25 MG TABS 523215 PROMETHAZINE HCL Inactive ZYRTEC ALLERGY 10 MG CAPS 1 po qd ZY RTEC ALLERGY 10 MG CAPS CETIRIZINE HCL Inactive MACROBID 100 MG CAP 1 cap by mouth twice daily MACROBID 100 MG CAP 1622456 NITROFURANTOIN MONOHYD MACRO Inactive LOMOTIL 2.5-0.025 MG TABS 1 to 2 four times a day as needed for diarrhea LOMOTIL 2.5-0.025 MG TABS 2479567 DIPHENOXYLATE-A TROPINE Inactive CYCLOBENZAPRINE HCL 10 MG TABS 1/2 - 1 tablet by mouth three times daily as needed for muscle spasm/pain CYCLOBENZAP RINE HCL 10 MG TABS 673473 CYCLOBENZAPRINE HCL Inactive AMOXICILLIN 500 MG TABS 2 tabs twice a day for 10 days AMOXICILLIN 500 MG TABS 374547 AMOXICILLIN Inactive LOMOTIL 2.5-0.025 MG TAB 1 to 2 four times a day as needed f or diarrhea LOMOTIL 2.5-0.025 MG TAB 0222128 DIPHENOXYLATE-AT ROPINE Inactive ZOFRAN 4 MG ORAL TABS 1 TAB PO Q 6 HRS PRN NAUSEA 2014 ZOFRAN 4 MG ORAL TABS 314224 ONDANSETRON HCL Inactive CITRATE OF MAGNESIA ORAL SOLN 1 bottle today for constipation 20 07/10/15 CITRATE OF MAGNESIA ORAL SOLN 4442484 MAGNESIUM CITRATE Inactive PROMETHAZINE HCL 12.5 MG TABS 1 tablet by mouth every 6 hours as needed for nausea/vomiting PROMETHAZINE HCL 12.5 MG TABS 529791 PROMETHAZINE HCL Inactive PREDNISONE 20 MG TAB 1 tablet twice daily for 2 d ays, then 1 tablet once daily for 2 days PREDNISONE 20 MG TAB 336407 PREDNISONE Inac tive ALPRAZOLAM 0.25 MG TAB 1 tablet by mouth every 8 hours as ne eded for stress ALPRAZOLAM 0.25 MG TAB 925140 ALPRAZOLAM Inact zaid FLONASE 50 MCG/ACT SUSP 1 spray each nostril twice d aily for allergies and runny nose until gone FLONASE 50 MCG/ACT SUSP F LUTICASONE PROPIONATE Inactive PREDNISONE 20 MG TAB 1 tablet daily for airway inflammation 2015 PREDNISONE 20 MG TAB 434671 PREDNISONE Inactive AMOXICILLIN 500 MG TABS take 1 tab po TID AMOXICILLIN 500 MG TABS 652365 AMOXICILLIN Inactive AMOXICILLIN 500 MG CAP 1 tab by mouth 3 times daily 09/23/20 AMOXICILLIN 500 MG CAP 965019 AMOXICILLIN Inactive ZITHROMAX 250 MG TAB 2 po today, then 1 po q days 2-5 ZITHROMAX 250 MG TAB 9851791 AZITHROMYCIN Inactive ZITHROMAX 250 MG TAB 2 po today, then 1 po q days 2-5 ZITHROMAX 250 MG TAB 2439905 AZITHROMYCIN Inactive AZITHROMYCIN 500 MG TABS 1 PO q day x 6 days 3 AZITHROMYCIN 500 MG TABS 2629212 AZITHROMYCIN Inactive BACTRIM 400-80 MG TABS take one po BID BA CTRIM 400-80 MG TABS 645694 SULFAMETHOXAZOLE-TRIMETHOPRIM Inactive AZITHROMYCIN 250 MG TABS 2 po qd x 1 day, then 1 po qd x 4 days AZITHROMYCIN 250 MG TABS 2152796 AZITHROMYCIN Inactiv e PREDNISONE 20 MG TAB 2 tabs daily for 3 days, 1 t ab daily for 3 days, 1/2 tab daily for 2 days PREDNISONE 20 MG TAB 772664 PREDNISON E Inactive ZITHROMAX 250 MG TAB 2 po today, then 1 po q days 2-5 ZITHROMAX 250 MG TAB 3637674 AZITHROMYCIN Inactive FLAGYL 500 MG TAB 1 tablet by mouth two times daily 07/11/29 FLAGYL 500 MG TAB 826454 METRONIDAZOLE Inactive AUGMENTIN 875-125 MG TAB 1 tab by mouth twice daily with food 20 08/12/16 AUGMENTIN 875-125 MG TAB 659240 AMOXICILLIN-POT CLAVULA ANGELO Inactive NAPROXEN 500 MG TAB one tab PO BID NAPROXEN 500 MG TAB 523550 NAPROXEN Inactive PREDNISONE 20 MG TAB 2 tabs daily for 3 days, 1 t ab daily for 3 days, 1/2 tab daily for 2 days PREDNISONE 20 MG TAB 826753 PREDNISON E Inactive AZITHROMYCIN 250 MG TABS 2 po qd x 1 day, then 1 po qd x 4 days AZITHROMYCIN 250 MG TABS 4687550 AZITHROMYCIN Inactiv e PREDNISONE 20 MG TAB 2 tabs daily for 3 days, 1 t ab daily for 3 days, 1/2 tab daily for 2 days PREDNISONE 20 MG TAB 138770 PREDNISON E Inactive ZITHROMAX Z-EMIL 250 MG TABS 2 today, then 1 daily for 4 days 201 03/31/18 ZITHROMAX Z-EMIL 250 MG TABS 3143398 AZITHROMYCIN Inac tive CEFDINIR 300 MG CAPS [...] Panel - Chemistry sodium, serum 136 mmol/L 109-772 8145/04/26 carbon dioxide, venous blood 29.9 mmol/L 21.0-32 [...] Negative Encounters Code Encounter Date Provider Facility CPT-66827 Level 4 Est. Patient 12:08:40 MULTI PUNCH OPERATOR Steve OIM CONSULTANT [facility] CPT-92437 Level 3 Est. Patient 09:24:42 CDT Steve [facility] CPT-78603 Level 3 Est. Patient 09:12:56 CDT Arie mcqueen MD [facility] CPT-50905 Level 3 Est. Patient 16:40:54 CDT Jose Zhong MD [facility] CPT-82392 Level 2 Est. Patient 13:01:13 CDT Steve OIM CONSULTANT [facility] CPT-55040 Level 3 Est. Patient 11:55:30 MULTI PUNCH OPERATOR Jono black DO [facility] CPT-02795 Level 3 Est. Patient 09:52:36 MULTI PUNCH OPERATOR Steve CABRERA [facility] CPT-93050 Level 3 Est. Patient 16:25:33 MULTI PUNCH OPERATOR Rich Rosales MD [facility] CPT-48632 Level 3 Est. Patient 20:33:55 CDT Arie mcqueen MD [facility] CPT-67082 Level 3 Est. Patient 14:18:20 CDT Rich Rosales MD [facility] CPT-83513 Level 4 Est. Patient 09:34:31 CDT Arie mcqueen MD [facility]-90582 Level 3 Est. Patient 09:08:55 MULTI PUNCH OPERATOR Liliana vincent MD PhD [facility]-60810 Level 3 Est. Patient 16:44:07 MULTI PUNCH OPERATOR Arie mcqueen MD [facility] CPT-80139 Level 3 Est. Patient 10:44:27 CDT Arie mcqueen MD [facility] CPT-80043 Level 3 Est. Patient 08:55:41 CDT Jose Zhong MD [facility] CPT-55418 Level 3 Est. Patient 18:37:31 CDT Liliana vincent MD PhD [facility] CPT-10572 Level 3 Est. Patient 14:28:23 CDT Abelardo HERNANDEZ [facility] CPT-27151 Level 3 Est. Patient 15:18:13 MULTI PUNCH OPERATOR Arie mcqueen MD [facility] CPT-18672 Level 3 Est. Patient 10:11:29 MULTI PUNCH OPERATOR Arie mcqueen MD [facility] CPT-58299 Level 3 Est. Patient 10:55:57 MULTI PUNCH OPERATOR Jono black DO [facility] CPT-62009 Level 3 Est. Patient 17:29:05 CDT Arie mcqueen MD [facility] Procedures Code Procedure Name Date Entry Date Standard Desc ription CPT-72575 Sono transvag pelvis non OB uterus ovari es cervix - XRAY USE ONLY 08:58:14 MULTI PUNCH OPERATOR CPT-13562 UA w micro - LAB USE ONLY 16:04:56 MULTI PUNCH OPERATOR 2015 CPT-18200 Wet Prep/GEN - LAB USE ONLY 16:04:56 MULTI PUNCH OPERATOR 20 08/10/29 CPT-00423 First Vx - Ix admin via ID I M or jet injects without counseling by physician 16:57:10 CDT CPT-80191 Fluzone Preservative Free Intramuscular Suspension 16:57:10 CDT CPT-J0696 Rocephin 1000 mg (Ceftriaxone) 11:49:23 CDT CPT-J1040 Depo Medrol 80 mg (Methyl Prednisolone A cetate) 11:49:23 CDT CPT-J1100 Decadron 8mg (Dexamethasone) 11:49:23 CDT 2 CPT-81929 Abx/Therapy Injection 11:49:23 CDT CPT-03623 Abx/Therapy Injection 11:49:23 CDT CPT-47439 Abd compl w upright 09:07:26 MULTI PUNCH OPERATOR CPT-12516 Ear Wash 16:12:47 MULTI PUNCH OPERATOR CPT-OV Office Visit 11:12:01 CDT CPT-OV Office Visit 15:30:23 CDT CPT-25652 Sono pelvis non OB uterus ovaries cervix 15:50:44 CDT CPT-18045 Hand comp min 3V 16:42:32 CDT CPT-55374 Abd compl w upright 12:17:01 CDT CPT-04891 Nexplanon Placement 15:07:39 MULTI PUNCH OPERATOR CPT-81934 Removal of IUD 15:07:39 MULTI PUNCH OPERATOR CPT-53992 TB Tubersol 12:09:32 CDT CPT-86143 TB Tubersol 13:55:43 CDT
--- OUTSIDE RECORDS SUMMARY | 2020-03-03 08:09 | XMS REPORT | Clinical Summary ---
Author Author Admin, Diamante Marcelo Organization [employer] Address Unknown Phone Unavailable Allergies, Adverse Reactions, Alerts Allergy Name Reaction Description Start Date Severity Status Pr ovider DILAUDID Severe Active Biri MARROQUIN RN Conditions or Problems Problem Name [...] implantable subdermal contraceptiv e Active Brii Russ NEUROLOGIST Vaginal bleeding 623.8 Active Arie Casper MD Other specified noninflammatory disorders of vagina Influenza like illness 487.1 Active Jose Mcwilliams MD Influenza with other respiratory manifestations Sinusitis 473.9 Active Jessica Heaton NEUROLOGIST Unspecified sinusitis (chronic) COLON CANCER ICD-V16.0 Inactive Jose Zhong MD [...] Generic Name NDC Status Provider Patient Instruction GUAIFENESIN DM 400-20 MG ORAL TABLET 1 pill by mouth t wice daily, if needed for cough DEXTROMETHORPHAN-GUAIFENESIN [id number] Active Jillina Ottoniell RICK Active CEFDINIR 300 MG ORAL CAPSULE 1 po BID x 10 days CEFDINIR 75421462192 Active Jillina Frazell NEUROLOGIST Active CHERATUSSIN AC 100-10 MG/5ML ORAL SYRUP 1 tsp by mouth every 4 hours as needed for cough GUAIFENESIN-CODEINE 81303834913 No Longe r Active Jillina Florina CABRERA Active TAMIFLU 75 MG ORAL CAPSULE 1 po BID x 5 days 0 OSELTAMIVIR PHOSPHATE 06029909579 No Longer Active Jose Zhong MD Activ e ZITHROMAX Z-EMIL 250 MG ORAL TABLET 2 today, then 1 daily for 4 d ays AZITHROMYCIN 93886251616 No Longer Active Arie Casper MD Active PROTONIX 40 MG ORAL TABLET DELAYED RELEASE 1 po q a.m. PANTOPRAZOLE SODIUM 93138009011 No Longer Active Arie Casper MD Active BACTRIM DS 800-160 MG ORAL TABLET 1 tab by mouth twice daily 201 05/02/30 TRIMETHOPRIM-SULFAMETHOXAZOLE 14396332657 No Longer Active R [facility] yT Active NEXPLANON IMPLANT right arm subcutaneously ETONOGESTREL IMPL 88152619501 No Longer Active Brii Russ APRN Active TUSSIONEX PENNKINETIC ER 10-8 MG/5ML ORAL SUSPENSION E XTENDED RELEASE 5ml po q12hr PRN Cough HYDROCOD POLST-CHLORPHEN POLST 5 0356534947 No Longer Active Brii Russ APRN Active CETIRIZINE HCL 10 MG ORAL TABLET 1 po qd PRN Allergies CETIRIZINE HCL 12327091351 No Longer Active Biri Russ APRN Activ e PREDNISONE 20 MG ORAL TABLET 2 tabs daily for 3 days, 1 tab daily for 3 days, 1/2 tab daily for 2 days PREDNISONE 59345971439 No Longer Active Arie Casper MD Active LOMOTIL 2.5-0.025 MG ORAL TABLET 1 tab po four times a day as needed for diarrhea DIPHENOXYLATE-ATROPINE 51668412284 No Lo nger Active Arie Casper MD Active ZOLOFT 50 MG ORAL TABLET 1 tablet by mouth daily 12/08 SERTRALINE HCL 85632130123 No Longer Active Arie Casper MD Ac tive NAPROXEN 500 MG ORAL TABLET Take 1 tab BID NAPR OXEN 24294671843 No Longer Active Arie Casper MD Active CEFDINIR 300 MG ORAL CAPSULE 1 po BID x 10 days CEFDINIR 19540711985 No Longer Active Brii Russ APRN Active PREDNISONE 20 MG ORAL TABLET 1 tablet daily for airway inflammat ion PREDNISONE 23651394057 No Longer Active Brii Russ APRN A ctive CEFDINIR 300 MG ORAL CAPSULE 1 po BID x 10 days CEFDINIR 57532694799 No Longer Active Jono Gagnon DO Active FLONASE 50 MCG/ACT NASAL SUSPENSION 1 spray each nostr il twice daily for allergies and runny nose until gone FLUT ICASONE PROPIONATE 23016406275 No Longer Active Jono Gagnon DO Active ALPRAZOLAM 0.25 MG ORAL TABLET 1 tablet by mouth every 8 hours as needed for stress ALPRAZOLAM 79017751063 No Longer Active Jono Gagnon DO Active ZITHROMAX Z-EMIL 250 MG ORAL TABLET 2 today, then 1 daily for 4 d ays AZITHROMYCIN 74751571049 No Longer Active Arie Casper MD Active PREDNISONE 20 MG ORAL TABLET 2 tabs daily for 3 days, 1 tab daily for 3 days, 1/2 tab daily for 2 days PREDNISONE 80355517997 No Longer Active Brii Russ APRN Active PREDNISONE 20 MG ORAL TABLET 1 tablet twice daily for 2 days, then 1 tablet once daily for 2 days PREDNISONE 99807596038 No Longer Active Brii Russ APRN Active PROMETHAZINE HCL 12.5 MG ORAL TABLET 1 tablet by mouth every 6 hours as needed for nausea/vomiting PROMETHAZINE HCL 79729276998 No L onger Active Jono Gagnon DO Active CITRATE OF MAGNESIA ORAL SOLUTION 1 bottle today for constipatio n MAGNESIUM CITRATE 69061503865 No Longer Active Jono Gagnon DO Active ZOFRAN 4 MG ORAL TABLET 1 TAB PO Q 6 HRS PRN NAUSEA 07/10/15 ONDANSETRON HCL 06188901768 No Longer Active Brii Russ APRN Acti ve LOMOTIL 2.5-0.025 MG ORAL TABLET 1 to 2 four times a day as needed for diarrhea DIPHENOXYLATE-ATROPINE 40347302040 No Longer Active January Russ APRN Active AMOXICILLIN 500 MG ORAL TABLET 2 tabs twice a day for 10 days 07/09/11 AMOXICILLIN 46022632239 No Longer Active Brii Russ APRN Active CYCLOBENZAPRINE HCL 10 MG ORAL TABLET 1/2 - 1 tablet b y mouth three times daily as needed for muscle spasm/pain CYCLOBENZAPRINE HCL 27133335253 No Longer Active Arie Casper MD Active LOMOTIL 2.5-0.025 MG ORAL TABLET 1 to 2 four times a day as needed for diarrhea DIPHENOXYLATE-ATROPINE 16321978972 No Longer Active Fozia Casper MD Active MACROBID 100 MG ORAL CAPSULE 1 cap by mouth twice daily NITROFURANTOIN MONOHYD MACRO 23727962416 No Longer Active Arie Casper MD Active ZYRTEC ALLERGY 10 MG ORAL CAPSULE 1 po qd CE TIRIZINE HCL 39406221661 No Longer Active Arie Casper MD Active AZITHROMYCIN 250 MG ORAL TABLET 2 po qd x 1 day, then 1 po q d x 4 days AZITHROMYCIN 70396002014 No Longer Active Jessica salgado NEUROLOGIST Active PREDNISONE 20 MG ORAL TABLET 2 tabs daily for 3 days, 1 tab daily for 3 days, 1/2 tab daily for 2 days PREDNISONE 26462436232 No Longer Active Jessica Heaton NEUROLOGIST Active PROMETHAZINE HCL 25 MG ORAL TABLET 1 four times a day as nee ded for vomiting PROMETHAZINE HCL 44306406631 No Longer Active Myrna Roberto MD Active BACTRIM DS 800-160 MG ORAL TABLET 1 twice a day 05/30 SULFAMETHOXAZOLE-TRIMETHOPRIM 11061861015 No Longer Active Myrna Roberto MD Active VICKS DAYQUIL SEVERE COLD/FLU TABLET 1 tab every 6 hours prn 201 02/22/17 [id number] TABS 27397006851 No Longer Active Chris Roberto MD Active GUAIFENESIN-CODEINE 100-10 MG/5ML ORAL SYRUP 2 tsp every 6 hours prn GUAIFENESIN-CODEINE 83966896246 No Longer Active Myrna Roberto MD Active NAPROXEN 500 MG ORAL TABLET one tab PO BID NAPR OXEN 61503314587 No Longer Active Myrna Roberto MD Active AUGMENTIN 875-125 MG ORAL TABLET 1 tab by mouth twice daily with food AMOXICILLIN-POT CLAVULANATE 82971488280 No Longer Act zaid Liliana Estrada MD PhD Active AMOXICILLIN 500 MG ORAL CAPSULE 1 tab by mouth 3 times daily 201 02/21/05 AMOXICILLIN 26449605831 No Longer Active Liliana Estrada MD PhD Active TESSALON PERLES 100 MG ORAL CAPSULE 1 tablet by mouth 3 times da cory BENZONATATE 59160824741 No Longer Active Liliana Estrada MD PhD Active FLAGYL 500 MG ORAL TABLET 1 tablet by mouth two times daily 2014 METRONIDAZOLE 67769797410 No Longer Active Nilam Doran tive ZITHROMAX 250 MG ORAL TABLET 2 po today, then 1 po q days 2-5 20 06/08/16 AZITHROMYCIN 99234727698 No Longer Active Arie Casper MD Active VITAMINS 0.8 MG ORAL TABLET take 1 tab po qday [id number] 21253843909 No Longer Active Arie Casper MD Active IBUPROFEN 800 MG ORAL TABLET take one po Q 8 hours 201 02/01/16 IBUPROFEN 56511669103 No Longer Active Arie Casper MD Acti ve [facility] TUSSIN COUGH/COLD CF 5-10-100 MG/5ML ORAL LIQUID 2 teasp oons every 4 hours [id number] 36257315905 No Longer Active Blaine Casper MD Active COMTREX COLD/COUGH DAY/NITE MS 5-2-10-325 MG ORAL 2 caps deja ry 4 hours [id number] 76414185989 No Longer Active Da aleksandra Casper MD Active CHLORASEPTIC MAX SORE THROAT 15-10 MG MOUTH/THROAT LOZENGE 1 every 2 hours prn BENZOCAINE-MENTHOL 00925017975 No Longer Active Arie Casper MD Active PREDNISONE 20 MG ORAL TABLET 2 tabs daily for 3 days, 1 tab daily for 3 days, 1/2 tab daily for 2 days PREDNISONE 29402406895 No Longer Active Jose Zhong MD Active AZITHROMYCIN 250 MG ORAL TABLET 2 po qd x 1 day, then 1 po q d x 4 days AZITHROMYCIN 54985901655 No Longer Active Jose Mcwilliams MD Active ZOFRAN ODT 4 MG ORAL TABLET DISINTEGRATING 1 po q6hr PRN Nausea ONDANSETRON 97622538623 No Longer Active Rich Rosales MD Active ZOFRAN 4 MG ORAL TABLET 1 tablet every 4 hours ONDANSETRON HCL 69866603617 No Longer Active Rich Rosales MD Activ e MUCINEX 600 MG ORAL TABLET EXTENDED RELEASE 12 HOUR Ta ke 1-2 tablets every 12 hours GUAIFENESIN 52994072713 No Longer Active Rich Rosales MD Active BACTRIM 400-80 MG ORAL TABLET take one po BID SULFAMETHOXAZOLE-TRIMETHOPRIM 52875354196 No Longer Active Abelardo HERNANDEZ Active AZITHROMYCIN 500 MG ORAL TABLET 1 PO q day x 6 days 20 03/02/23 AZITHROMYCIN 64443535189 No Longer Active Tin HERNANDEZ Activ e ZITHROMAX 250 MG ORAL TABLET 2 po today, then 1 po q days 2-5 20 10/03/08 AZITHROMYCIN 31288222585 No Longer Active Arie Casper MD Active ZITHROMAX 250 MG ORAL TABLET 2 po today, then 1 po q days 2-5 20 09/23/25 AZITHROMYCIN 24443365875 No Longer Active Arie Casper MD Active AMOXICILLIN 500 MG ORAL CAPSULE 1 tab by mouth 3 times daily 201 11/24/09 AMOXICILLIN 64893250859 No Longer Active Arie Casper MD Active BACTRIM DS 800-160 MG ORAL TABLET 1 tab by mouth twice daily 201 11/03/14 TRIMETHOPRIM-SULFAMETHOXAZOLE 14880495249 No Longer Active Fozia Casper MD Active AMOXICILLIN 500 MG ORAL TABLET take 1 tab po TID 08/05 AMOXICILLIN 36125556075 No Longer Active Arie Casper MD Acti ve BACTRIM DS 800-160 MG ORAL TABLET 1 tab by mouth twice daily 201 11/03/14 BACTRIM DS 800-160 MG ORAL TABLET 868841 TRIMETHOPRIM-SULFAMETHOXAZOLE Inactive MUCINEX 600 MG ORAL TABLET EXTENDED RELEASE 12 HOUR Ta ke 1-2 tablets every 12 hours MUCINEX 600 MG ORAL TABLET EXTENDED RELEA SE 12 HOUR GUAIFENESIN Inactive ZOFRAN 4 MG ORAL TABLET 1 tablet every 4 hours ZOFRAN 4 MG ORAL TABLET 640079 ONDANSETRON HCL Inactive ZOFRAN ODT 4 MG ORAL TABLET DISINTEGRATING 1 po q6hr PRN Nausea ZOFRAN ODT 4 MG ORAL TABLET DISINTEGRATING 427683 ONDAN SETRON Inactive CHLORASEPTIC MAX SORE THROAT 15-10 MG MOUTH/THROAT LOZENGE 1 every 2 hours prn CHLORASEPTIC MAX SORE THROAT 15-10 MG MOUTH/THROAT LOZENGE BENZOCAINE-MENTHOL Inactive COMTREX COLD/COUGH DAY/NITE MS 5-2-10-325 MG ORAL 2 caps deja ry 4 hours COMTREX COLD/COUGH DAY/NITE MS 5-2-10-325 MG ORA L [id number] Inactive [facility] TUSSIN COUGH/COLD CF 5-10-100 MG/5ML ORAL LIQUID 2 teasp oons every 4 hours [facility] TUSSIN COUGH/COLD CF 5-10-100 MG/5ML ORAL LI QUID [id number] Inactive IBUPROFEN 800 MG ORAL TABLET take one po Q 8 hours 201 02/01/16 IBUPROFEN 800 MG ORAL TABLET 422626 IBUPROFEN Inactive VITAMINS 0.8 MG ORAL TABLET take 1 tab po qday VITAMINS 0.8 MG ORAL TABLET [id number]-FA Inactive TESSALON PERLES 100 MG ORAL CAPSULE 1 tablet by mouth 3 times da cory TESSALON PERLES 100 MG ORAL CAPSULE 537820 BENZONATATE Inactive AMOXICILLIN 500 MG ORAL CAPSULE 1 tab by mouth 3 times daily 201 02/21/05 AMOXICILLIN 500 MG ORAL CAPSULE 420019 AMOXICILLIN Inactive GUAIFENESIN-CODEINE 100-10 MG/5ML ORAL SYRUP 2 tsp every 6 hours prn GUAIFENESIN-CODEINE 100-10 MG/5ML ORAL SYRUP 267766 GUAIFENESIN-CODEINE Inactive VICKS DAYQUIL SEVERE COLD/FLU TABLET 1 tab every 6 hours prn 201 02/22/17 VICKS DAYQUIL SEVERE COLD/FLU TABLET PHENYLEPHRI [id number]-APAP TABS Inactive BACTRIM DS 800-160 MG ORAL TABLET 1 twice a day 05/30 BACTRIM DS 800-160 MG ORAL TABLET 980409 SULFAMETHOXAZOLE-TRIMETHOPRIM Inactiv e PROMETHAZINE HCL 25 MG ORAL TABLET 1 four times a day as nee ded for vomiting PROMETHAZINE HCL 25 MG ORAL TABLET 058102 PROMETHAZINE HCL Inactive ZYRTEC ALLERGY 10 MG ORAL CAPSULE 1 po qd ZYRTEC ALLERGY 10 MG ORAL CAPSULE CETIRIZINE HCL Inactive MACROBID 100 MG ORAL CAPSULE 1 cap by mouth twice daily MACROBID 100 MG ORAL CAPSULE 3086752 NITROFURANTOIN MONOHYD MACRO In active LOMOTIL 2.5-0.025 MG ORAL TABLET 1 to 2 four times a day as needed for diarrhea LOMOTIL 2.5-0.025 MG ORAL TABLET 6729140 DIPHENOXYLATE-ATROPINE Inactive CYCLOBENZAPRINE HCL 10 MG ORAL TABLET 1/2 - 1 tablet b y mouth three times daily as needed for muscle spasm/pain CYCLOBEN ZAPRINE HCL 10 MG ORAL TABLET 439043 CYCLOBENZAPRINE HCL Inactive AMOXICILLIN 500 MG ORAL TABLET 2 tabs twice a day for 10 days 20 07/09/11 AMOXICILLIN 500 MG ORAL TABLET 466823 AMOXICILLIN I nactive LOMOTIL 2.5-0.025 MG ORAL TABLET 1 to 2 four times a day as needed for diarrhea LOMOTIL 2.5-0.025 MG ORAL TABLET 0129848 DIPHENOXYLATE-ATROPINE Inactive ZOFRAN 4 MG ORAL TABLET 1 TAB PO Q 6 HRS PRN NAUSEA 20 07/10/15 ZOFRAN 4 MG ORAL TABLET 975580 ONDANSETRON HCL Inactive CITRATE OF MAGNESIA ORAL SOLUTION 1 bottle today for constipatio n CITRATE OF MAGNESIA ORAL SOLUTION 4623851 MAGNESIUM CITR ATE Inactive PROMETHAZINE HCL 12.5 MG ORAL TABLET 1 tablet by mouth every 6 hours as needed for nausea/vomiting PROMETHAZINE HCL 12.5 MG ORA L TABLET 605646 PROMETHAZINE HCL Inactive PREDNISONE 20 MG ORAL TABLET 1 tablet twice daily for 2 days, then 1 tablet once daily for 2 days PREDNISONE 20 MG ORAL TABLET 110277 PREDNISONE Inactive ALPRAZOLAM 0.25 MG ORAL TABLET 1 tablet by mouth every 8 hours as needed for stress ALPRAZOLAM 0.25 MG ORAL TABLET 542361 ALPRA ZOLAM Inactive FLONASE 50 MCG/ACT NASAL SUSPENSION 1 spray each nostr il twice daily for allergies and runny nose until gone FLON ASE 50 MCG/ACT NASAL SUSPENSION 1518191 FLUTICASONE PROPIONATE Inactive PREDNISONE 20 MG ORAL TABLET 1 tablet daily for airway inflammat ion PREDNISONE 20 MG ORAL TABLET 205896 PREDNISONE [place] ctive NAPROXEN 500 MG ORAL TABLET Take 1 tab BID NAPROXEN 500 MG ORAL TABLET 456027 NAPROXEN Inactive ZOLOFT 50 MG ORAL TABLET 1 tablet by mouth daily 12/08 ZOLOFT 50 MG ORAL TABLET 148021 SERTRALINE HCL Inactive LOMOTIL 2.5-0.025 MG ORAL TABLET 1 tab po four times a day as needed for diarrhea LOMOTIL 2.5-0.025 MG ORAL TABLET 8134331 DIPHENOXYLATE-ATROPINE Inactive CETIRIZINE HCL 10 MG ORAL TABLET 1 po qd PRN Allergies CETIRIZINE HCL 10 MG ORAL TABLET 4225748 CETIRIZINE HCL Inactiv e TUSSIONEX PENNKINETIC ER 10-8 MG/5ML ORAL SUSPENSION E XTENDED RELEASE 5ml po q12hr PRN Cough TUSSIONEX PENNKINETI C ER 10-8 MG/5ML ORAL SUSPENSION EXTENDED RELEASE HYDROCOD POLST-CHLORPHEN POLST I nactive NEXPLANON IMPLANT right arm subcutaneously NEXPLANON IMPLANT ETONOGESTREL IMPL Inactive PROTONIX 40 MG ORAL TABLET DELAYED RELEASE 1 po q a.m. PROTONIX 40 MG ORAL TABLET DELAYED RELEASE 923639 PANTOPRAZOLE SODI UM Inactive CHERATUSSIN AC 100-10 MG/5ML ORAL SYRUP 1 tsp by mouth every 4 hours as needed for cough CHERATUSSIN AC 100-10 MG/5ML ORAL SYRUP 9 86278 GUAIFENESIN-CODEINE Inactive AMOXICILLIN 500 MG ORAL TABLET take 1 tab po TID 08/05 AMOXICILLIN 500 MG ORAL TABLET 680428 AMOXICILLIN Inactive AMOXICILLIN 500 MG ORAL CAPSULE 1 tab by mouth 3 times daily 201 11/24/09 AMOXICILLIN 500 MG ORAL CAPSULE 846884 AMOXICILLIN Inactive ZITHROMAX 250 MG ORAL TABLET 2 po today, then 1 po q days 2-5 20 09/23/25 ZITHROMAX 250 MG ORAL TABLET 970224 AZITHROMYCIN [place] ctive ZITHROMAX 250 MG ORAL TABLET 2 po today, then 1 po q days 2-5 20 10/03/08 ZITHROMAX 250 MG ORAL TABLET 128845 AZITHROMYCIN [place] ctive AZITHROMYCIN 500 MG ORAL TABLET 1 PO q day x 6 days 03/02/23 AZITHROMYCIN 500 MG ORAL TABLET 6989336 AZITHROMYCIN Inactive BACTRIM 400-80 MG ORAL TABLET take one po BID BACTRIM 400- 80 MG ORAL TABLET 459848 SULFAMETHOXAZOLE-TRIMETHOPRIM Inactive AZITHROMYCIN 250 MG ORAL TABLET 2 po qd x 1 day, then 1 po q d x 4 days AZITHROMYCIN 250 MG ORAL TABLET 784190 AZITHROMY ALLISON Inactive PREDNISONE 20 MG ORAL TABLET 2 tabs daily for 3 days, 1 tab daily for 3 days, 1/2 tab daily for 2 days PREDNISONE 20 MG ORAL T ABLET 338608 PREDNISONE Inactive ZITHROMAX 250 MG ORAL TABLET 2 po today, then 1 po q days 2-5 20 06/08/16 ZITHROMAX 250 MG ORAL TABLET 981882 AZITHROMYCIN [place] ctive FLAGYL 500 MG ORAL TABLET 1 tablet by mouth two times daily 2014 FLAGYL 500 MG ORAL TABLET 928318 METRONIDAZOLE Inacti ve AUGMENTIN 875-125 MG ORAL TABLET 1 tab by mouth twice daily with food AUGMENTIN 875-125 MG ORAL TABLET 605421 AMOXICIL ELSA-POT CLAVULANATE Inactive NAPROXEN 500 MG ORAL TABLET one tab PO BID NAPROXEN 500 MG ORAL TABLET 907555 NAPROXEN Inactive PREDNISONE 20 MG ORAL TABLET 2 tabs daily for 3 days, 1 tab daily for 3 days, 1/2 tab daily for 2 days PREDNISONE 20 MG ORAL T ABLET 466191 PREDNISONE Inactive AZITHROMYCIN 250 MG ORAL TABLET 2 po qd x 1 day, then 1 po q d x 4 days AZITHROMYCIN 250 MG ORAL TABLET 095930 AZITHROMY ALLISON Inactive PREDNISONE 20 MG ORAL TABLET 2 tabs daily for 3 days, 1 tab daily for 3 days, 1/2 tab daily for 2 days PREDNISONE 20 MG ORAL T ABLET 580543 PREDNISONE Inactive ZITHROMAX Z-EMIL 250 MG ORAL TABLET 2 today, then 1 daily for 4 d ays ZITHROMAX Z-EMIL 250 MG ORAL TABLET 768091 AZITHROMYCIN Inactive CEFDINIR 300 MG ORAL CAPSULE 1 po BID x 10 days 12/18 CEFDINIR 300 MG ORAL CAPSULE 295480 CEFDINIR Inactive CEFDINIR 300 MG ORAL CAPSULE 1 po BID x 10 days CEFDINIR 300 MG ORAL CAPSULE 536474 CEFDINIR Inactive PREDNISONE 20 MG ORAL TABLET 2 tabs daily for 3 days, 1 tab daily for 3 days, 1/2 tab daily for 2 days PREDNISONE 20 MG ORAL T ABLET 418096 PREDNISONE Inactive BACTRIM DS 800-160 MG ORAL TABLET 1 tab by mouth twice daily 201 05/02/30 BACTRIM DS 800-160 MG ORAL TABLET 007364 TRIMETHOPRIM-SULFAMETHOXAZOLE Inactive ZITHROMAX Z-EMIL 250 MG ORAL TABLET 2 today, then 1 daily for 4 d ays ZITHROMAX Z-EMIL 250 MG ORAL TABLET 061592 AZITHROMYCIN Inactive TAMIFLU 75 MG ORAL CAPSULE 1 po BID x 5 days 0 TAMIFLU 75 MG ORAL CAPSULE 855363 OSELTAMIVIR PHOSPHATE Inactive Advance Directives Directive Description [...] 11 .6-14.8 platelet count 263 10^3/MM^3 10*3/mm3 178-866 9164/11/09 erythrocyte (RBC) count 4.77 10^6/MM^3 10*6/mm3 3.80-5.8 0 hemoglobin, blood 12.7 g/dL 12.0-16.0 hematocrit, blood 39.5 % 37.0-47.0 mean corpuscular volume, RBC 83 fL 80-97 mean corpuscular hemoglobin, RBC 26.7 pg 27. 0-31.2 Lab Report: UADIP W/MICRO, AUTO - Chemis [...] Negative Encounters Code Encounter Date Provider Facility CPT-42883 Level 3 Est. Patient 11:49:34 [employer] Jessica boyd [facility] CPT-55555 Level 3 Est. Patient 14:55:50 [employer] OPERATOR Jose Zhong MD [facility] CPT-54139 Level 3 Est. Patient 10:21:41 [employer] OPERATOR Arie mcqueen MD [facility] CPT-82224 Level 3 Est. Patient 11:35:15 [employer] OPERATOR Arie mcqueen MD [facility] CPT-01126 Level 3 Est. Patient 15:40:28 CDT Bri[address] [facility] CPT-18065 Level 3 Est. Patient 16:40:36 CDT Arie mcqueen MD [facility] CPT-12892 Level 4 Est. Patient 15:29:22 [employer] OPERATOR Arie mcqueen MD [facility] CPT-93839 Level 3 Est. Patient 15:18:16 [employer] OPERATOR Jono black DO [facility] CPT-48303 Level 4 Est. Patient 12:08:40 [employer] OPERATOR Brii Are [facility] CPT-49382 Level 3 Est. Patient 09:24:42 CDT Brii Are [facility] CPT-82919 Level 3 Est. Patient 09:12:56 CDT Arie mcqueen MD [facility] CPT-82987 Level 3 Est. Patient 16:40:54 CDT Jose Zhong MD [facility] CPT-56473 Level 2 Est. Patient 13:01:13 CDT Brii Are ll NEUROLOGIST [facility] CPT-37972 Level 3 Est. Patient 11:55:30 [employer] OPERATOR Jono black DO [facility] CPT-95688 Level 3 Est. Patient 09:52:36 [employer] OPERATOR Brii Are ll NEUROLOGIST [facility] CPT-77421 Level 3 Est. Patient 16:25:33 [employer] OPERATOR Rich Rosales MD [facility] CPT-91100 Level 3 Est. Patient 20:33:55 CDT Arie mcqueen MD [facility] CPT-86055 Level 3 Est. Patient 14:18:20 CDT Rich Rosales MD [facility] CPT-79351 Level 4 Est. Patient 09:34:31 CDT Arie mcqueen MD [facility] CPT-55457 Level 3 Est. Patient 09:08:55 [employer] OPERATOR Liliana vincent MD PhD [facility] CPT-84994 Level 3 Est. Patient 16:44:07 [employer] OPERATOR Arie mcqueen MD [facility] CPT-75166 Level 3 Est. Patient 10:44:27 CDT Arie mcqueen MD [facility] CPT-74111 Level 3 Est. Patient 08:55:41 CDT Jose Zhong MD [facility] CPT-33203 Level 3 Est. Patient 18:37:31 CDT Liliana vincent MD PhD [facility] CPT-01439 Level 3 Est. Patient 14:28:23 CDT Abelardo HERNANDEZ [facility] CPT-15809 Level 3 Est. Patient 15:18:13 [employer] OPERATOR Arie mcqueen MD [facility] CPT-27864 Level 3 Est. Patient 10:11:29 [employer] OPERATOR Arie mcqueen MD [facility] CPT-26917 Level 3 Est. Patient 10:55:57 [employer] OPERATOR Jono black DO [facility] CPT-26879 Level 3 Est. Patient 17:29:05 CDT Arie mcqueen MD [facility] Procedures Code Procedure Name Date Entry Date Standard Desc ription CPT-87927 Nexplanon Removal 15:40:28 CDT CPT-62956 Sono transvag pelvis non OB uterus ovari es cervix - XRAY USE ONLY 08:58:14 [employer] OPERATOR CPT-02566 UA w micro - LAB USE ONLY 16:04:56 [employer] OPERATOR 2015 CPT-76698 Wet Prep/GEN - LAB USE ONLY 16:04:56 [employer] OPERATOR 20 08/10/29 CPT-67715 First Vx - Ix admin via ID I M or jet injects without counseling by physician 16:57:10 CDT CPT-41628 Fluzone Preservative Free Intramuscular Suspension 16:57:10 CDT CPT-J0696 Rocephin 1000 mg (Ceftriaxone) 11:49:23 CDT CPT-J1040 Depo Medrol 80 mg (Methyl Prednisolone A cetate) 11:49:23 CDT CPT-J1100 Decadron 8mg (Dexamethasone) 11:49:23 CDT 2 CPT-21525 Abx/Therapy Injection 11:49:23 CDT CPT-72193 Abx/Therapy Injection 11:49:23 CDT CPT-20341 Abd compl w upright 09:07:26 [employer] OPERATOR CPT-61288 Ear Wash 16:12:47 [employer] OPERATOR CPT-OV Office Visit 11:12:01 CDT CPT-OV Office Visit 15:30:23 CDT CPT-74289 Sono pelvis non OB uterus ovaries cervix 15:50:44 CDT CPT-44350 Hand comp min 3V 16:42:32 CDT CPT-17535 Abd compl w upright 12:17:01 CDT CPT-83891 Nexplanon Placement 15:07:39 [employer] OPERATOR CPT-59874 Removal of IUD 15:07:39 [employer] OPERATOR CPT-61494 TB Tubersol 12:09:32 CDT CPT-98672 TB Tubersol 13:55:43 CDT
--- OUTSIDE RECORDS SUMMARY | 2020-03-03 08:10 | XMS REPORT | Clinical Summary ---
Author Author Admin, Diamante Marcelo Organization [facility] Address Unknown Phone Unavailable Allergies, Adverse Reactions, [...] 20 08/12/16 Symptom, cough ICD-786.2 Inactive Liliana Etsrada MD PhD Vaginal discharge ICD-623.5 Inactive Liliana lares MD PhD Medication List Medication Instructions Start Date Stop Date Generic Name NDC Status Provider Patient Instruction NAPROXEN 500 MG TAB one tab PO BID NAPROXEN 332 [id number] No Longer Active Myrna Roberto MD Active LOMOTIL 2.5-0.025 MG TABS 1 to 2 four times a day as needed for diarrhea DIPHENOXYLATE-ATROPINE 28057684060 Active Rich mcintosh MD Active PROMETHAZINE HCL 25 MG TABS 1 four times a day as needed for vomiting PROMETHAZINE HCL 27837572013 Active Rich Rosales MD Active BACTRIM DS 800-160 MG TABS 1 twice a day SULFAMETHOXAZOLE-TRIMETHOPRIM 95729430636 Active Rich Rosales MD Active AUGMENTIN 875-125 MG TAB 1 tab by mouth twice daily with food 20 08/12/16 AMOXICILLIN-POT CLAVULANATE 49795341972 No Longer Active Liliana Estrada MD PhD Active CYCLOBENZAPRINE HCL 10 MG TABS 1/2 - 1 tablet by mouth three times daily as needed for muscle spasm/pain CYCLOBENZAPRINE HCL 66491 106242 Active Liliana Estrada MD PhD Active GUAIFENESIN-CODEINE 100-10 MG/5ML ORAL SYRP 2 tsp every 6 hours prn GUAIFENESIN-CODEINE 89880322848 Active Liliana Estrada MD PhD Active VICKS DAYQUIL SEVERE COLD/FLU TABS 1 tab every 6 hours prn [id number]-APAP TABS 61766076049 Active Liliana Estrada MD PhD Active AMOXICILLIN 500 MG CAP 1 tab by mouth 3 times daily 08/12/16 AMOXICILLIN 31053365744 No Longer Active Liliana Estrada MD PhD Acti ve TESSALON PERLES 100 MG CAP 1 tablet by mouth 3 times daily 11/01 BENZONATATE 55922846944 No Longer Active Liliana Estrada MD PhD Active FLAGYL 500 MG TAB 1 tablet by mouth two times daily 07/11/29 METRONIDAZOLE 21106344056 No Longer Active Nilam Weber Active ZITHROMAX 250 MG TAB 2 po today, then 1 po q days 2-5 AZITHROMYCIN 40827570008 No Longer Active Arie Casper MD Acti ve VITAMINS 0.8 MG TABS take 1 tab po qday 08/08 MDCHISKO-[id number]-IP-FA 98755173780 No Longer Active Arie Casper MD Active IBUPROFEN 800 MG TABS take one po Q 8 hours IBU PROFEN 77713149364 No Longer Active Arie Casper MD Active [facility] TUSSIN COUGH/COLD CF 5-10-100 MG/5ML LIQD 2 teaspoons ev eliud 4 hours [id number]-QG-HM 98097639457 No Longer Active Blaine Casper MD Active COMTREX COLD/COUGH DAY/NITE MS 5-2-10-325 MG MISC 2 caps deja ry 4 hours [id number]-VTB-SM-APAP 98698094142 No Longer Active Landon Casper MD Active CHLORASEPTIC MAX SORE THROAT 15-10 MG LOZG 1 every 2 hours prn 2 BENZOCAINE-MENTHOL 25983914588 No Longer Active Arie Marcelo Active PREDNISONE 20 MG TAB 2 tabs daily for 3 days, 1 t ab daily for 3 days, 1/2 tab daily for 2 days PREDNISONE 93198273911 No Longer Active Jose Zhong MD Active AZITHROMYCIN 250 MG TABS 2 po qd x 1 day, then 1 po qd x 4 days AZITHROMYCIN 03544615981 No Longer Active Jose Zhong MD Active ZOFRAN ODT 4 MG TBDP 1 po q6hr PRN Nausea ONDAN SETRON 65130513021 No Longer Active Rich Rosales MD Active ZOFRAN 4 MG TABS 1 tablet every 4 hours ONDANSE JERRELL HCL 23958137360 No Longer Active Rich Rosales MD Active MUCINEX 600 MG [id number] Take 1-2 tablets every 12 hours GUAIFENESIN 04663305623 No Longer Active Rich Rosales MD Activ e BACTRIM 400-80 MG TABS take one po BID SULFAMETHOXAZOLE-TRIMETHOPRIM 27407646351 No Longer Active Abelardo HERNANDEZ Active AZITHROMYCIN 500 MG TABS 1 PO q day x 6 days AZ ITHROMYCIN 54508041915 No Longer Active Tin HERNANDEZ Active ZITHROMAX 250 MG TAB 2 po today, then 1 po q days 2-5 AZITHROMYCIN 33141424045 No Longer Active Arie Casper MD Acti ve ZITHROMAX 250 MG TAB 2 po today, then 1 po q days 2-5 AZITHROMYCIN 63708409798 No Longer Active Arie Casper MD Acti ve AMOXICILLIN 500 MG CAP 1 tab by mouth 3 times daily 20 09/23/20 AMOXICILLIN 10237821316 No Longer Active Arie Casper MD Acti ve BACTRIM DS 800-160 MG TAB 1 tab by mouth twice daily 2 TRIMETHOPRIM-SULFAMETHOXAZOLE 86402691173 No Longer Active Arie Casper MD Active AMOXICILLIN 500 MG TABS take 1 tab po TID AMOXI CILLIN 22529317993 No Longer Active Arie Casper MD Active BACTRIM DS 800-160 MG TAB 1 tab by mouth twice daily 2 BACTRIM DS 800-160 MG TAB TRIMETHOPRIM-SULFAMETHOXAZOLE Inac tive MUCINEX 600 MG [id number] Take 1-2 tablets every 12 hours MUCINEX 600 MG [id number] GUAIFENESIN Inactive ZOFRAN 4 MG TABS 1 tablet every 4 hours ZOFRAN 4 MG TABS 945573 ONDANSETRON HCL Inactive ZOFRAN ODT 4 MG TBDP 1 po q6hr PRN Nausea ZOFRAN ODT 4 MG TBDP 318892 ONDANSETRON Inactive CHLORASEPTIC MAX SORE THROAT 15-10 MG LOZG 1 every 2 hours prn 2 CHLORASEPTIC MAX SORE THROAT 15-10 MG LOZG BENZO ARINA-MENTHOL Inactive COMTREX COLD/COUGH DAY/NITE MS 5-2-10-325 MG MISC 2 caps deja ry 4 hours COMTREX COLD/COUGH DAY/NITE MS 5-2-10-325 MG MIS C [id number]-APAP Inactive [facility] TUSSIN COUGH/COLD CF 5-10-100 MG/5ML LIQD 2 teaspoons ev eliud 4 hours [facility] TUSSIN COUGH/COLD CF 5-10-100 MG/5ML LIQD [id number]-[id number] Inactive IBUPROFEN 800 MG TABS take one po Q 8 hours IBUPROFEN 800 MG TABS 907647 IBUPROFEN Inactive VITAMINS 0.8 MG TABS take 1 tab po qday 08/08 VITAMINS 0.8 MG TABS [id number] Inactive TESSALON PERLES 100 MG CAP 1 tablet by mouth 3 times daily 11/01 TESSALON PERLES 100 MG CAP 448642 BENZONATATE Inact zaid AMOXICILLIN 500 MG CAP 1 tab by mouth 3 times daily 08/12/16 AMOXICILLIN 500 MG CAP 339921 AMOXICILLIN Inactive AMOXICILLIN 500 MG TABS take 1 tab po TID AMOXICILLIN 500 MG TABS 059710 AMOXICILLIN Inactive AMOXICILLIN 500 MG CAP 1 tab by mouth 3 times daily 09/23/20 AMOXICILLIN 500 MG CAP 831010 AMOXICILLIN Inactive ZITHROMAX 250 MG TAB 2 po today, then 1 po q days 2-5 ZITHROMAX 250 MG TAB 9377338 AZITHROMYCIN Inactive ZITHROMAX 250 MG TAB 2 po today, then 1 po q days 2-5 ZITHROMAX 250 MG TAB 3344995 AZITHROMYCIN Inactive AZITHROMYCIN 500 MG TABS 1 PO q day x 6 days 3 AZITHROMYCIN 500 MG TABS 5431849 AZITHROMYCIN Inactive BACTRIM 400-80 MG TABS take one po BID BA CTRIM 400-80 MG TABS 024887 SULFAMETHOXAZOLE-TRIMETHOPRIM Inactive AZITHROMYCIN 250 MG TABS 2 po qd x 1 day, then 1 po qd x 4 days AZITHROMYCIN 250 MG TABS 1485795 AZITHROMYCIN Inactiv e PREDNISONE 20 MG TAB 2 tabs daily for 3 days, 1 t ab daily for 3 days, 1/2 tab daily for 2 days PREDNISONE 20 MG TAB 836080 PREDNISON E Inactive ZITHROMAX 250 MG TAB 2 po today, then 1 po q days 2-5 ZITHROMAX 250 MG TAB 4793669 AZITHROMYCIN Inactive FLAGYL 500 MG TAB 1 tablet by mouth two times daily 07/11/29 FLAGYL 500 MG TAB 598246 METRONIDAZOLE Inactive AUGMENTIN 875-125 MG TAB 1 tab by mouth twice daily with food 08/12/16 AUGMENTIN 875-125 MG TAB 772820 AMOXICILLIN-POT CLAVULA ANGELO Inactive NAPROXEN 500 MG TAB one tab PO BID NAPROXEN 500 MG TAB 446993 NAPROXEN Inactive Advance Directives Directive Description Start [...] 214 10^3/MM^3 10*3/mm3 142-424 Lab Report: Chlamydia/GC APTIMA/[id number] - Lab chlamydia DNA probe NOT DETECTED NOT DETECTED Lab Report: Chlamydia/GC APTIMA/[id number] - Microbiology Neisseria gonorrhoeae DNA probe NOT DETECTED NO T DETECTED Lab Report: HIV-1/2 Agn/Darcy/48254, HEPAT ITIS PANEL, ACUTE W/REFLE - Chemistry [...] 5.0-8.5 Encounters Code Encounter Date Provider Facility CPT-67519 Level 3 Est. Patient 14:18:20 CDT Rich Rosales MD [facility] CPT-89767 Level 4 Est. Patient 09:34:31 CDT Arie mcqueen MD [facility] CPT-24880 Level 3 Est. Patient 09:08:55 ICE CRUSHER Liliana vincent MD PhD [facility] CPT-67433 Level 3 Est. Patient 16:44:07 ICE CRUSHER Arie mcqueen MD [facility] CPT-25866 Level 3 Est. Patient 10:44:27 CDT Arie mcqueen MD [facility] CPT-57740 Level 3 Est. Patient 08:55:41 CDT Jose Zhong MD [facility] CPT-26520 Level 3 Est. Patient 18:37:31 CDT Liliana vincent MD PhD [facility] CPT-11841 Level 3 Est. Patient 14:28:23 CDT Abelardo marroquin [facility] CPT-30576 Level 3 Est. Patient 15:18:13 ICE CRUSHER Arie mcqueen MD [facility] CPT-80844 Level 3 Est. Patient 10:11:29 ICE CRUSHER Arie mcqueen MD [facility] CPT-64057 Level 3 Est. Patient 10:55:57 ICE CRUSHER Jono black DO [facility] CPT-00929 Level 3 Est. Patient 17:29:05 CDT Arie mcqueen MD [facility] Procedures Code Procedure Name Date Entry Date Standard Desc ription CPT-OV Office Visit 15:30:23 CDT CPT-54924 Sono pelvis non OB uterus ovaries cervix 15:50:44 CDT CPT-35567 Hand comp min 3V 16:42:32 CDT CPT-36404 Abd compl w upright 12:17:01 CDT CPT-51157 Nexplanon Placement 15:07:39 ICE CRUSHER CPT-89992 Removal of IUD 15:07:39 ICE CRUSHER CPT-15983 TB Tubersol 12:09:32 CDT CPT-48993 TB Tubersol 13:55:43 CDT
--- OUTSIDE RECORDS SUMMARY | 2020-03-03 08:10 | XMS REPORT | Clinical Summary ---
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 REPAIRER Nausea alone URI 465.9 Active Jono Gagnon [...] Anxiety with depression 300.4 Active Glenn Larson ORIENTAL RUG REPAIRER Dysthymic disorder URI 465.9 Active Jono Gagnon [...] 1/2 tab daily for 2 days PREDNISONE 69104448257 Active Arie Casper MD Active TUSSIONEX PENNKINETIC ER 10-8 MG/5ML LQCR 5ml po q12hr PRN Cough 20 07/02/19 HYDROCOD POLST-CHLORPHEN POLST 72227044850 Active Arie Casper MD Active CETIRIZINE HCL 10 MG ORAL TABS 1 po qd PRN Allergies CETIRIZINE HCL 81420250428 Active Arie Casper MD Active NEXPLANON IMPL right arm subcutaneously ETONOGE STREL IMPL 71381024576 Active Arie Casper MD Active LOMOTIL 2.5-0.025 MG TAB 1 tab po four times a day as needed for diarrhea DIPHENOXYLATE-ATROPINE 27342992470 No Longer Active Fozia Casper MD Active ZOLOFT 50 MG TAB 1 tablet by mouth daily SERTRA LINE HCL 38260597178 No Longer Active Arie Casper MD Active NAPROXEN 500 MG TAB Take 1 tab BID NAPROXEN 332 64810652 No Longer Active Arie Casper MD Active CEFDINIR 300 MG CAPS 1 po BID x 10 days CEFDINI R 53020330691 No Longer Active Brii Larson APRN Active PREDNISONE 20 MG TAB 1 tablet daily for airway inflammation 2015 PREDNISONE 29511335406 No Longer Active Brii Larson APRN Active CEFDINIR 300 MG CAPS 1 po BID x 10 days CEFDINI R 81644107886 No Longer Active Jono Gagnon DO Active FLONASE 50 MCG/ACT SUSP 1 spray each nostril twice d aily for allergies and runny nose until gone FLUTICASONE PROPIONATE No Longe r Active Jono Gagnon DO Active ALPRAZOLAM 0.25 MG TAB 1 tablet by mouth every 8 hours as ne eded for stress ALPRAZOLAM 40107104103 No Longer Active Jono Gagnon DO Active ZITHROMAX Z-EMIL 250 MG TABS 2 today, then 1 daily for 4 days 201 03/31/18 AZITHROMYCIN 21068146342 No Longer Active Arie Casper MD Active PROTONIX 40 MG ORAL TBEC 1 po q a.m. PANTOPRAZO LE SODIUM 14495930427 Active Arie Casper MD Active PREDNISONE 20 MG TAB 2 tabs daily for 3 days, 1 t ab daily for 3 days, 1/2 tab daily for 2 days PREDNISONE 00467866404 No Longer Active Brii Larson APRN Active PREDNISONE 20 MG TAB 1 tablet twice daily for 2 d ays, then 1 tablet once daily for 2 days PREDNISONE 00320437242 No Longer Active Brii Larson APRN Active PROMETHAZINE HCL 12.5 MG TABS 1 tablet by mouth every 6 hours as needed for nausea/vomiting PROMETHAZINE HCL 63822001319 No Longe r Active Jono Gagnon DO Active CITRATE OF MAGNESIA ORAL SOLN 1 bottle today for constipation 20 07/10/15 MAGNESIUM CITRATE 79117694581 No Longer Active Jono Gagnon DO Active ZOFRAN 4 MG ORAL TABS 1 TAB PO Q 6 HRS PRN NAUSEA 2014 ONDANSETRON HCL 77214652066 No Longer Active Brii Larson APRN A ctive LOMOTIL 2.5-0.025 MG TAB 1 to 2 four times a day as needed f or diarrhea DIPHENOXYLATE-ATROPINE 80071891327 No Longer Active January Larson APRN Active AMOXICILLIN 500 MG TABS 2 tabs twice a day for 10 days AMOXICILLIN 74879548463 No Longer Active Brii Larson APRN Acti ve CYCLOBENZAPRINE HCL 10 MG TABS 1/2 - 1 tablet by mouth three times daily as needed for muscle spasm/pain CYCLOBENZAPRINE HCL 26779529286 No Longer Active Arie Casper MD Active LOMOTIL 2.5-0.025 MG TABS 1 to 2 four times a day as needed for diarrhea DIPHENOXYLATE-ATROPINE 50270034665 No Longer Active D freddy Casper MD Active MACROBID 100 MG CAP 1 cap by mouth twice daily NITROFURANTOIN MONOHYD MACRO 06483273503 No Longer Active Arie Casper MD Active ZYRTEC ALLERGY 10 MG CAPS 1 po qd CETIRIZINE HCL 13984310109 No Longer Active Arie Casper MD Active AZITHROMYCIN 250 MG TABS 2 po qd x 1 day, then 1 po qd x 4 days AZITHROMYCIN 05097130067 No Longer Active Jillina Frazell ORIENTAL RUG REPAIRER Active PREDNISONE 20 MG TAB 2 tabs daily for 3 days, 1 t ab daily for 3 days, 1/2 tab daily for 2 days PREDNISONE 79151332015 No Longer Active Jillina Frazell ORIENTAL RUG REPAIRER Active PROMETHAZINE HCL 25 MG TABS 1 four times a day as needed for vomiting PROMETHAZINE HCL 43632027751 No Longer Active Myrna Roberto MD Active BACTRIM DS 800-160 MG TABS 1 twice a day SULFAMETHOXAZOLE-TRIMETHOPRIM 42080204929 No Longer Active Myrna Roberto MD Active VICKS DAYQUIL SEVERE COLD/FLU TABS 1 tab every 6 hours prn 12/10 [id number]-HE-DH-APAP TABS 48695061673 No Longer Active Myrna leigh MD Active GUAIFENESIN-CODEINE 100-10 MG/5ML ORAL SYRP 2 tsp every 6 hours prn GUAIFENESIN-CODEINE 18856079966 No Longer Active Myrna Roberto MD Active NAPROXEN 500 MG TAB one tab PO BID NAPROXEN 332 46048657 No Longer Active Myrna Roberto MD Active AUGMENTIN 875-125 MG TAB 1 tab by mouth twice daily with food 08/12/16 AMOXICILLIN-POT CLAVULANATE 39457297004 No Longer Active Liliana Estrada MD PhD Active AMOXICILLIN 500 MG CAP 1 tab by mouth 3 times daily 08/12/16 AMOXICILLIN 71264897268 No Longer Active Liliana Estrada MD PhD Acti ve TESSALON PERLES 100 MG CAP 1 tablet by mouth 3 times daily 11/01 BENZONATATE 84770862473 No Longer Active Liliana Estrada MD PhD Active FLAGYL 500 MG TAB 1 tablet by mouth two times daily 07/11/29 METRONIDAZOLE 66921324842 No Longer Active Nilam Weber Active ZITHROMAX 250 MG TAB 2 po today, then 1 po q days 2-5 AZITHROMYCIN 94408782569 No Longer Active Arie Casper MD Acti ve VITAMINS 0.8 MG TABS take 1 tab po qday 08/08 [id number] 39317912893 No Longer Active Arie Casper MD Active IBUPROFEN 800 MG TABS take one po Q 8 hours IBU PROFEN 91374943468 No Longer Active Arie Casper MD Active [facility] TUSSIN COUGH/COLD CF 5-10-100 MG/5ML LIQD 2 teaspoons ev eliud 4 hours [id number]-MC 10449904163 No Longer Active Blaine Casper MD Active COMTREX COLD/COUGH DAY/NITE MS 5-2-10-325 MG MISC 2 caps deja ry 4 hours [id number]-ULG-SJ-APAP 71911079867 No Longer Active Landon Casper MD Active CHLORASEPTIC MAX SORE THROAT 15-10 MG LOZG 1 every 2 hours prn 2 BENZOCAINE-MENTHOL 51884559514 No Longer Active Arie Marcelo Active PREDNISONE 20 MG TAB 2 tabs daily for 3 days, 1 t ab daily for 3 days, 1/2 tab daily for 2 days PREDNISONE 12670789252 No Longer Active Jose Zhong MD Active AZITHROMYCIN 250 MG TABS 2 po qd x 1 day, then 1 po qd x 4 days AZITHROMYCIN 39546180126 No Longer Active Jose Zhong MD Active ZOFRAN ODT 4 MG TBDP 1 po q6hr PRN Nausea ONDAN SETRON 02076355735 No Longer Active Rich Rosales MD Active ZOFRAN 4 MG TABS 1 tablet every 4 hours ONDAWANDY ALLAN HCL 37989534438 No Longer Active Rich Rosales MD Active MUCINEX 600 MG RD03H-DBP Take 1-2 tablets every 12 hours GUAIFENESIN 98295277035 No Longer Active Rich Rosales MD Activ e BACTRIM 400-80 MG TABS take one po BID SULFAMETHOXAZOLE-TRIMETHOPRIM 34538520404 No Longer Active Abelardo HERNANDEZ Active AZITHROMYCIN 500 MG TABS 1 PO q day x 6 days AZ ITHROMYCIN 39862872248 No Longer Active Tin HERNANDEZ Active ZITHROMAX 250 MG TAB 2 po today, then 1 po q days 2-5 AZITHROMYCIN 16080598915 No Longer Active Arie Casper MD Acti ve ZITHROMAX 250 MG TAB 2 po today, then 1 po q days 2-5 AZITHROMYCIN 63084649344 No Longer Active Arie Casper MD Acti ve AMOXICILLIN 500 MG CAP 1 tab by mouth 3 times daily 09/23/20 AMOXICILLIN 70653436646 No Longer Active Arie Casper MD Acti ve BACTRIM DS 800-160 MG TAB 1 tab by mouth twice daily 2 TRIMETHOPRIM-SULFAMETHOXAZOLE 11535642729 No Longer Active Arie Casper MD Active AMOXICILLIN 500 MG TABS take 1 tab po TID AMOXI CILLIN 65931178752 No Longer Active Arie Casper MD Active BACTRIM DS 800-160 MG TAB 1 tab by mouth twice daily 2 BACTRIM DS 800-160 MG TAB 245098 TRIMETHOPRIM-SULFAMETHOXAZOLE Inac tive MUCINEX 600 MG PL74P-XDR Take 1-2 tablets every 12 hours MUCINEX 600 MG [id number]-LNP GUAIFENESIN Inactive ZOFRAN 4 MG TABS 1 tablet every 4 hours ZOFRAN 4 MG TABS 861774 ONDANSETRON HCL Inactive ZOFRAN ODT 4 MG TBDP 1 po q6hr PRN Nausea ZOFRAN ODT 4 MG TBDP 762534 ONDANSETRON Inactive CHLORASEPTIC MAX SORE THROAT 15-10 MG LOZG 1 every 2 hours prn 2 CHLORASEPTIC MAX SORE THROAT 15-10 MG LOZG BENZO ARINA-MENTHOL Inactive COMTREX COLD/COUGH DAY/NITE MS 5-2-10-325 MG MISC 2 caps deja ry 4 hours COMTREX COLD/COUGH DAY/NITE MS 5-2-10-325 MG MIS C [id number]-APAP Inactive [facility] TUSSIN COUGH/COLD CF 5-10-100 MG/5ML LIQD 2 teaspoons ev eliud 4 hours [facility] TUSSIN COUGH/COLD CF 5-10-100 MG/5ML LIQD [id number] Inactive IBUPROFEN 800 MG TABS take one po Q 8 hours IBUPROFEN 800 MG TABS IBUPROFEN Inactive VITAMINS 0.8 MG TABS take 1 tab po qday 08/08 VITAMINS 0.8 MG TABS [id number]-[id number]-JY-FA Inactive TESSALON PERLES 100 MG CAP 1 tablet by mouth 3 times daily 11/01 TESSALON PERLES 100 MG CAP 748623 BENZONATATE Inact zaid AMOXICILLIN 500 MG CAP 1 tab by mouth 3 times daily 08/12/16 AMOXICILLIN 500 MG CAP 923759 AMOXICILLIN Inactive GUAIFENESIN-CODEINE 100-10 MG/5ML ORAL SYRP 2 tsp every 6 hours prn GUAIFENESIN-CODEINE 100-10 MG/5ML ORAL SYRP 319595 GUAIFENESIN-CODEINE Inactive VICKS DAYQUIL SEVERE COLD/FLU TABS 1 tab every 6 hours prn 12/10 VICKS DAYQUIL SEVERE COLD/FLU TABS PHENYLEPHRINE -DM-GG-APAP TABS Inactive BACTRIM DS 800-160 MG TABS 1 twice a day BACTRIM DS 800- 160 MG TABS 611677 SULFAMETHOXAZOLE-TRIMETHOPRIM Inactive PROMETHAZINE HCL 25 MG TABS 1 four times a day as needed for vomiting PROMETHAZINE HCL 25 MG TABS 475670 PROMETHAZINE HCL Inactive ZYRTEC ALLERGY 10 MG CAPS 1 po qd ZY RTEC ALLERGY 10 MG CAPS CETIRIZINE HCL Inactive MACROBID 100 MG CAP 1 cap by mouth twice daily MACROBID 100 MG CAP 4619953 NITROFURANTOIN MONOHYD MACRO Inactive LOMOTIL 2.5-0.025 MG TABS 1 to 2 four times a day as needed for diarrhea LOMOTIL 2.5-0.025 MG TABS 1386411 DIPHENOXYLATE-A TROPINE Inactive CYCLOBENZAPRINE HCL 10 MG TABS 1/2 - 1 tablet by mouth three times daily as needed for muscle spasm/pain CYCLOBENZAP RINE HCL 10 MG TABS 843601 CYCLOBENZAPRINE HCL Inactive AMOXICILLIN 500 MG TABS 2 tabs twice a day for 10 days AMOXICILLIN 500 MG TABS 982838 AMOXICILLIN Inactive LOMOTIL 2.5-0.025 MG TAB 1 to 2 four times a day as needed f or diarrhea LOMOTIL 2.5-0.025 MG TAB 0275880 DIPHENOXYLATE-AT ROPINE Inactive ZOFRAN 4 MG ORAL TABS 1 TAB PO Q 6 HRS PRN NAUSEA 2014 ZOFRAN 4 MG ORAL TABS 651549 ONDANSETRON HCL Inactive CITRATE OF MAGNESIA ORAL SOLN 1 bottle today for constipation 20 07/10/15 CITRATE OF MAGNESIA ORAL SOLN 1097481 MAGNESIUM CITRATE Inactive PROMETHAZINE HCL 12.5 MG TABS 1 tablet by mouth every 6 hours as needed for nausea/vomiting PROMETHAZINE HCL 12.5 MG TABS 309380 PROMETHAZINE HCL Inactive PREDNISONE 20 MG TAB 1 tablet twice daily for 2 d ays, then 1 tablet once daily for 2 days PREDNISONE 20 MG TAB 769756 PREDNISONE Inac tive ALPRAZOLAM 0.25 MG TAB 1 tablet by mouth every 8 hours as ne eded for stress ALPRAZOLAM 0.25 MG TAB 262731 ALPRAZOLAM Inact zaid FLONASE 50 MCG/ACT SUSP 1 spray each nostril twice d aily for allergies and runny nose until gone FLONASE 50 MCG/ACT SUSP F LUTICASONE PROPIONATE Inactive PREDNISONE 20 MG TAB 1 tablet daily for airway inflammation 2015 PREDNISONE 20 MG TAB 463508 PREDNISONE Inactive NAPROXEN 500 MG TAB Take 1 tab BID NAPROXEN 500 MG TAB 664561 NAPROXEN Inactive ZOLOFT 50 MG TAB 1 tablet by mouth daily ZOLOFT 50 MG TAB 145784 SERTRALINE HCL Inactive LOMOTIL 2.5-0.025 MG TAB 1 tab po four times a day as needed for diarrhea LOMOTIL 2.5-0.025 MG TAB 1306955 DIPHENOXYLATE-AT ROPINE Inactive AMOXICILLIN 500 MG TABS take 1 tab po TID AMOXICILLIN 500 MG TABS 349061 AMOXICILLIN Inactive AMOXICILLIN 500 MG CAP 1 tab by mouth 3 times daily 09/23/20 AMOXICILLIN 500 MG CAP 099051 AMOXICILLIN Inactive ZITHROMAX 250 MG TAB 2 po today, then 1 po q days 2-5 ZITHROMAX 250 MG TAB 7744951 AZITHROMYCIN Inactive ZITHROMAX 250 MG TAB 2 po today, then 1 po q days 2-5 ZITHROMAX 250 MG TAB 3360000 AZITHROMYCIN Inactive AZITHROMYCIN 500 MG TABS 1 PO q day x 6 days 3 AZITHROMYCIN 500 MG TABS 9798403 AZITHROMYCIN Inactive BACTRIM 400-80 MG TABS take one po BID BA CTRIM 400-80 MG TABS 582278 SULFAMETHOXAZOLE-TRIMETHOPRIM Inactive AZITHROMYCIN 250 MG TABS 2 po qd x 1 day, then 1 po qd x 4 days AZITHROMYCIN 250 MG TABS 2455512 AZITHROMYCIN Inactiv e PREDNISONE 20 MG TAB 2 tabs daily for 3 days, 1 t ab daily for 3 days, 1/2 tab daily for 2 days PREDNISONE 20 MG TAB 311675 PREDNISON E Inactive ZITHROMAX 250 MG TAB 2 po today, then 1 po q days 2-5 ZITHROMAX 250 MG TAB 6232955 AZITHROMYCIN Inactive FLAGYL 500 MG TAB 1 tablet by mouth two times daily 07/11/29 FLAGYL 500 MG TAB 531379 METRONIDAZOLE Inactive AUGMENTIN 875-125 MG TAB 1 tab by mouth twice daily with food 20 08/12/16 AUGMENTIN 875-125 MG TAB 747238 AMOXICILLIN-POT CLAVULA ANGELO Inactive NAPROXEN 500 MG TAB one tab PO BID NAPROXEN 500 MG TAB 204156 NAPROXEN Inactive PREDNISONE 20 MG TAB 2 tabs daily for 3 days, 1 t ab daily for 3 days, 1/2 tab daily for 2 days PREDNISONE 20 MG TAB 717253 PREDNISON E Inactive AZITHROMYCIN 250 MG TABS 2 po qd x 1 day, then 1 po qd x 4 days AZITHROMYCIN 250 MG TABS 0258013 AZITHROMYCIN Inactiv e PREDNISONE 20 MG TAB 2 tabs daily for 3 days, 1 t ab daily for 3 days, 1/2 tab daily for 2 days PREDNISONE 20 MG TAB 097021 PREDNISON E Inactive ZITHROMAX Z-EMIL 250 MG TABS 2 today, then 1 daily for 4 days 201 03/31/18 ZITHROMAX Z-EMIL 250 MG TABS 8760231 AZITHROMYCIN Inac tive CEFDINIR 300 MG CAPS 1 po BID x 10 days C EFDINIR 300 MG CAPS 20030127 CEFDINIR Inactive CEFDINIR 300 MG CAPS 1 po BID x 10 days C EFDINIR 300 MG CAPS 711596 CEFDINIR Inactive Advance Directives Directive Description Start [...] Panel - Chemistry sodium, serum 136 mmol/L 481-638 3065/04/26 carbon dioxide, venous blood 29.9 mmol/L 21.0-32 [...] 284 10^3/MM^3 10*3/mm3 142-424 Lab Report: Chlamydia/GC APTIMA/22032 - Lab chlamydia DNA probe NOT DETECTED NOT DETECTED Lab Report: Chlamydia/GC APTIMA/10309 - Microbiology Neisseria gonorrhoeae DNA probe NOT [...] urine, semiquantitative Negative Neg ative Lab Report: [facility], UADIP W/MICRO, AUTO - Chemistry protein, total [...] Negative Encounters Code Encounter Date Provider Facility CPT-05821 Level 3 Est. Patient 16:40:36 CDT Arie mcqueen MD [facility] CPT-48894 Level 4 Est. Patient 15:29:22 SAMPLE EXAMINER Arie mcqueen MD [facility] CPT-30805 Level 3 Est. Patient 15:18:16 SAMPLE EXAMINER Jono black [facility] CPT-36480 Level 4 Est. Patient 12:08:40 SAMPLE EXAMINER Steve [facility] CPT-44811 Level 3 Est. Patient 09:24:42 CDT Steve [facility] CPT-58137 Level 3 Est. Patient 09:12:56 CDT Arie mcqueen MD [facility] CPT-38749 Level 3 Est. Patient 16:40:54 CDT Jose Zhong MD [facility] CPT-21319 Level 2 Est. Patient 13:01:13 CDT Steve [facility] CPT-17524 Level 3 Est. Patient 11:55:30 SAMPLE EXAMINER Jono black [facility] CPT-27813 Level 3 Est. Patient 09:52:36 SAMPLE EXAMINER Steve [facility] CPT-43437 Level 3 Est. Patient 16:25:33 SAMPLE EXAMINER Rich Rosales MD [facility]-61359 Level 3 Est. Patient 20:33:55 CDT Arie mcqueen MD [facility]-68975 Level 3 Est. Patient 14:18:20 CDT Rich Rosales MD [facility]-65562 Level 4 Est. Patient 09:34:31 CDT Arie mcqueen MD [facility]-11162 Level 3 Est. Patient 09:08:55 SAMPLE EXAMINER Liliana vincent MD [facility]-08798 Level 3 Est. Patient 16:44:07 SAMPLE EXAMINER Arie mcqueen MD [facility]-87187 Level 3 Est. Patient 10:44:27 CDT Arie mcqueen MD [facility]-34205 Level 3 Est. Patient 08:55:41 CDT Jose Zhong MD [facility]-76752 Level 3 Est. Patient 18:37:31 CDT Liliana vincent MD [facility]-36208 Level 3 Est. Patient 14:28:23 CDT Abelardo HERNANDEZ [facility]-92313 Level 3 Est. Patient 15:18:13 SAMPLE EXAMINER Arie mcqueen MD [facility]-54710 Level 3 Est. Patient 10:11:29 SAMPLE EXAMINER Arie mcqueen MD [facility]-98396 Level 3 Est. Patient 10:55:57 SAMPLE EXAMINER Jono black DO [facility]-28047 Level 3 Est. Patient 17:29:05 CDT [facility] Procedures Code Procedure Name Date Entry Date Standard Desc ription CPT-94802 Sono transvag pelvis non OB uterus ovari es cervix - XRAY USE ONLY 08:58:14 SAMPLE EXAMINER CPT-62675 UA w micro - LAB USE ONLY 16:04:56 SAMPLE EXAMINER 2015 CPT-96739 Wet Prep/GEN - LAB USE ONLY 16:04:56 SAMPLE EXAMINER 20 08/10/29 CPT-08520 First Vx - Ix admin via ID I M or jet injects without counseling by physician 16:57:10 CDT CPT-66182 Fluzone Preservative Free Intramuscular Suspension 16:57:10 CDT CPT-J0696 Rocephin 1000 mg (Ceftriaxone) 11:49:23 CDT CPT-J1040 Depo Medrol 80 mg (Methyl Prednisolone A cetate) 11:49:23 CDT CPT-J1100 Decadron 8mg (Dexamethasone) 11:49:23 CDT 2 CPT-34667 Abx/Therapy Injection 11:49:23 CDT CPT-29181 Abx/Therapy Injection 11:49:23 CDT CPT-72278 Abd compl w upright 09:07:26 SAMPLE EXAMINER CPT-95571 Ear Wash 16:12:47 SAMPLE EXAMINER CPT-OV Office Visit 11:12:01 CDT CPT-OV Office Visit 15:30:23 CDT CPT-77775 Sono pelvis non OB uterus ovaries cervix 15:50:44 CDT CPT-95228 Hand comp min 3V 16:42:32 CDT CPT-18716 Abd compl w upright 12:17:01 CDT CPT-34049 Nexplanon Placement 15:07:39 SAMPLE EXAMINER CPT-39996 Removal of IUD 15:07:39 SAMPLE EXAMINER CPT-16350 TB Tubersol 12:09:32 CDT CPT-76193 TB Tubersol 13:55:43 CDT
--- OUTSIDE RECORDS SUMMARY | 2020-03-03 08:11 | XMS REPORT | Clinical Summary ---
Author Author Admin, Diamante Marcelo Organization [employer] Address Unknown Phone Unavailable Allergies, Adverse Reactions, [...] cute pharyngitis Nausea 787.02 Active Brii Larson TECHNOLOGY ASSISTANT Nausea alone URI 465.9 Active Jono Gagnon DO Acu te upper respiratory infections of unspecified site Allergic rhinitis 477.9 Active Brii Christianson PRN Allergic rhinitis, cause unspecified Abdominal pain, right lower quadrant 789.03 Active Jose Zhong MD Abdominal pain, right lower quadrant Urinary frequency 788.41 Inactive Roseann Crawford Urinary frequency Urinary frequency 788.41 Active 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, 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 Urinary frequency Sinusitis - acute 461.9 Active Brii Christianson PRN Acute sinusitis, unspecified Anxiety with depression 300.4 Active Glenn Larson TECHNOLOGY ASSISTANT Dysthymic disorder URI 465.9 Active Jono Gagnon DO Acu te upper respiratory infections of unspecified site Vaginal bleeding 623.8 Active Brii MARROQUIN RN Other specified noninflammatory disorders of vagina High risk sexual behavior V69.2 Active Arie Casper MD High-risk sexual behavior GERD 530.81 Active Arie Casper MD Esophageal reflux Encounter for surveillance of implantable subdermal contraceptiv e Active Brii Larson TECHNOLOGY ASSISTANT Vaginal bleeding 623.8 Active Arie Casper [...] 1 po q a.m. PANTOPRAZO LE SODIUM 95253892530 No Longer Active Arie Casper MD Active BACTRIM DS 800-160 MG TAB 1 tab by mouth twice daily 2 TRIMETHOPRIM-SULFAMETHOXAZOLE 80317471164 No Longer Active Roseann Crawford Active NEXPLANON IMPL right arm subcutaneously ETONOGE STREL IMPL 93919256860 No Longer Active Brii Larson APRN Active TUSSIONEX PENNKINETIC ER 10-8 MG/5ML LQCR 5ml po q12hr PRN Cough HYDROCOD POLST-CHLORPHEN POLST 90382750086 No Longer Active Brii Larson APRN Active CETIRIZINE HCL 10 MG ORAL TABS 1 po qd PRN Allergies 2 CETIRIZINE HCL 36977987652 No Longer Active Brii Larson APRN Ac tive PREDNISONE 20 MG TAB 2 tabs daily for 3 days, 1 t ab daily for 3 days, 1/2 tab daily for 2 days PREDNISONE 30383003579 No Longer Active Arie Casper MD Active LOMOTIL 2.5-0.025 MG TAB 1 tab po four times a day as needed for diarrhea DIPHENOXYLATE-ATROPINE 20367910396 No Longer Active Fozia Casper MD Active ZOLOFT 50 MG TAB 1 tablet by mouth daily SERTRA LINE HCL 78263724720 No Longer Active Arie Casper MD Active NAPROXEN 500 MG TAB Take 1 tab BID NAPROXEN 332 70977437 No Longer Active Arie Casper MD Active CEFDINIR 300 MG CAPS 1 po BID x 10 days CEFDINI R 18621534298 No Longer Active Brii Larson APRN Active PREDNISONE 20 MG TAB 1 tablet daily for airway inflammation 2015 PREDNISONE 77178192763 No Longer Active Brii Larson APRN Active CEFDINIR 300 MG CAPS 1 po BID x 10 days CEFDINI R 58715926287 No Longer Active Jono Gagnon DO Active FLONASE 50 MCG/ACT SUSP 1 spray each nostril twice d aily for allergies and runny nose until gone FLUTICASONE PROPIONATE No Longe r Active Jono Gagnon DO Active ALPRAZOLAM 0.25 MG TAB 1 tablet by mouth every 8 hours as ne eded for stress ALPRAZOLAM 85290865391 No Longer Active Jono Gagnon DO Active ZITHROMAX Z-EMIL 250 MG TABS 2 today, then 1 daily for 4 days 201 03/31/18 AZITHROMYCIN 13950126676 No Longer Active Arie Casper MD Active PREDNISONE 20 MG TAB 2 tabs daily for 3 days, 1 t ab daily for 3 days, 1/2 tab daily for 2 days PREDNISONE 77321664736 No Longer Active Brii Larson APRN Active PREDNISONE 20 MG TAB 1 tablet twice daily for 2 d ays, then 1 tablet once daily for 2 days PREDNISONE 13925025292 No Longer Active Brii Larson APRN Active PROMETHAZINE HCL 12.5 MG TABS 1 tablet by mouth every 6 hours as needed for nausea/vomiting PROMETHAZINE HCL 08826573172 No Longe r Active Jono Gagnon DO Active CITRATE OF MAGNESIA ORAL SOLN 1 bottle today for constipation 20 07/10/15 MAGNESIUM CITRATE 96892136337 No Longer Active Jono Gagnon DO Active ZOFRAN 4 MG ORAL TABS 1 TAB PO Q 6 HRS PRN NAUSEA 2014 ONDANSETRON HCL 37581284676 No Longer Active Brii Larson APRN A ctive LOMOTIL 2.5-0.025 MG TAB 1 to 2 four times a day as needed f or diarrhea DIPHENOXYLATE-ATROPINE 73208432653 No Longer Active January Larson APRN Active AMOXICILLIN 500 MG TABS 2 tabs twice a day for 10 days AMOXICILLIN 58849865983 No Longer Active Brii Larson APRN Acti ve CYCLOBENZAPRINE HCL 10 MG TABS 1/2 - 1 tablet by mouth three times daily as needed for muscle spasm/pain CYCLOBENZAPRINE HCL 15698659345 No Longer Active Arie Casper MD Active LOMOTIL 2.5-0.025 MG TABS 1 to 2 four times a day as needed for diarrhea DIPHENOXYLATE-ATROPINE 58471190475 No Longer Active Fozia Casper MD Active MACROBID 100 MG CAP 1 cap by mouth twice daily NITROFURANTOIN MONOHYD MACRO 04316319613 No Longer Active Arie Casper MD Active ZYRTEC ALLERGY 10 MG CAPS 1 po qd CETIRIZINE HCL 83912592809 No Longer Active Arie Casper MD Active AZITHROMYCIN 250 MG TABS 2 po qd x 1 day, then 1 po qd x 4 days AZITHROMYCIN 57025681902 No Longer Active Jillina Frazell TECHNOLOGY ASSISTANT Active PREDNISONE 20 MG TAB 2 tabs daily for 3 days, 1 t ab daily for 3 days, 1/2 tab daily for 2 days PREDNISONE 32942505676 No Longer Active Jillina Frazell TECHNOLOGY ASSISTANT Active PROMETHAZINE HCL 25 MG TABS 1 four times a day as needed for vomiting PROMETHAZINE HCL 52773997746 No Longer Active Myrna Roberto MD Active BACTRIM DS 800-160 MG TABS 1 twice a day SULFAMETHOXAZOLE-TRIMETHOPRIM 98161019458 No Longer Active Myrna Roberto MD Active VICKS DAYQUIL SEVERE COLD/FLU TABS 1 tab every 6 hours prn 12/10 [id number] TABS 64433399571 No Longer Active Myrna leigh MD Active GUAIFENESIN-CODEINE 100-10 MG/5ML ORAL SYRP 2 tsp every 6 hours prn GUAIFENESIN-CODEINE 04984373139 No Longer Active Myrna Roberto MD Active NAPROXEN 500 MG TAB one tab PO BID NAPROXEN 332 29605464 No Longer Active Myrna Roberto MD Active AUGMENTIN 875-125 MG TAB 1 tab by mouth twice daily with food 20 08/12/16 AMOXICILLIN-POT CLAVULANATE 96467294905 No Longer Active Liliana Estrada MD PhD Active AMOXICILLIN 500 MG CAP 1 tab by mouth 3 times daily 08/12/16 AMOXICILLIN 53397874589 No Longer Active Liliana Estrada MD PhD Acti ve TESSALON PERLES 100 MG CAP 1 tablet by mouth 3 times daily 11/01 BENZONATATE 63830000786 No Longer Active Liliana Estrada MD PhD Active FLAGYL 500 MG TAB 1 tablet by mouth two times daily 07/11/29 METRONIDAZOLE 27383542888 No Longer Active Nilam Gus Active ZITHROMAX 250 MG TAB 2 po today, then 1 po q days 2-5 AZITHROMYCIN 09265905382 No Longer Active Arie Casper MD Acti ve VITAMINS 0.8 MG TABS take 1 tab po qday 08/08 [id number] 95410665158 No Longer Active Arie Casper MD Active IBUPROFEN 800 MG TABS take one po Q 8 hours IBU PROFEN 86948622745 No Longer Active Arie Casper MD Active [facility] TUSSIN COUGH/COLD CF 5-10-100 MG/5ML LIQD 2 teaspoons ev eliud 4 hours [id number] 34261301674 No Longer Active Blaine Casper MD Active COMTREX COLD/COUGH DAY/NITE MS 5-2-10-325 MG MISC 2 caps deja ry 4 hours [id number] 51780909454 No Longer Active Landon Casper MD Active CHLORASEPTIC MAX SORE THROAT 15-10 MG LOZG 1 every 2 hours prn 2 BENZOCAINE-MENTHOL 44976129305 No Longer Active Arie Marcelo Active PREDNISONE 20 MG TAB 2 tabs daily for 3 days, 1 t ab daily for 3 days, 1/2 tab daily for 2 days PREDNISONE 56436116316 No Longer Active Jose Zhong MD Active AZITHROMYCIN 250 MG TABS 2 po qd x 1 day, then 1 po qd x 4 days AZITHROMYCIN 26729480670 No Longer Active Jose Zhong MD Active ZOFRAN ODT 4 MG TBDP 1 po q6hr PRN Nausea ONDAN SETRON 26170134574 No Longer Active Rich Rosales MD Active ZOFRAN 4 MG TABS 1 tablet every 4 hours ONDANSE JERRELL HCL 98190644476 No Longer Active Rich Rosales MD Active MUCINEX 600 MG [id number]-[id number] Take 1-2 tablets every 12 hours GUAIFENESIN 81942071067 No Longer Active Rich Rosales MD Activ e BACTRIM 400-80 MG TABS take one po BID SULFAMETHOXAZOLE-TRIMETHOPRIM 30853587598 No Longer Active Abelardo HERNANDEZ Active AZITHROMYCIN 500 MG TABS 1 PO q day x 6 days AZ ITHROMYCIN 26526981315 No Longer Active Tin HERNANDEZ Active ZITHROMAX 250 MG TAB 2 po today, then 1 po q days 2-5 AZITHROMYCIN 02605187401 No Longer Active Arie Casper MD Acti ve ZITHROMAX 250 MG TAB 2 po today, then 1 po q days 2-5 AZITHROMYCIN 10360692359 No Longer Active Arie Casper MD Acti ve AMOXICILLIN 500 MG CAP 1 tab by mouth 3 times daily 20 09/23/20 AMOXICILLIN 96121621001 No Longer Active Arie Casper MD Acti ve BACTRIM DS 800-160 MG TAB 1 tab by mouth twice daily 2 TRIMETHOPRIM-SULFAMETHOXAZOLE 46560332694 No Longer Active Arie Casper MD Active AMOXICILLIN 500 MG TABS take 1 tab po TID AMOXI CILLIN 29048517124 No Longer Active Aire Casper MD Active BACTRIM DS 800-160 MG TAB 1 tab by mouth twice daily 2 BACTRIM DS 800-160 MG TAB 19821226 TRIMETHOPRIM-SULFAMETHOXAZOLE Inac tive MUCINEX 600 MG [id number]-VXJ Take 1-2 tablets every 12 hours MUCINEX 600 MG [id number] GUAIFENESIN Inactive ZOFRAN 4 MG TABS 1 tablet every 4 hours ZOFRAN 4 MG TABS 301717 ONDANSETRON HCL Inactive ZOFRAN ODT 4 MG TBDP 1 po q6hr PRN Nausea ZOFRAN ODT 4 MG TBDP 748680 ONDANSETRON Inactive CHLORASEPTIC MAX SORE THROAT 15-10 MG LOZG 1 every 2 hours prn 2 /04/30 CHLORASEPTIC MAX SORE THROAT 15-10 MG LOZG BENZO ARINA-MENTHOL Inactive COMTREX COLD/COUGH DAY/NITE MS 5-2-10-325 MG MISC 2 caps deja ry 4 hours COMTREX COLD/COUGH DAY/NITE MS 5-2-10-325 MG MIS C [id number] Inactive [facility] TUSSIN COUGH/COLD CF 5-10-100 MG/5ML LIQD 2 teaspoons ev eliud 4 hours [facility] TUSSIN COUGH/COLD CF 5-10-100 MG/5ML LIQD [id number] Inactive IBUPROFEN 800 MG TABS take one po Q 8 hours IBUPROFEN 800 MG TABS IBUPROFEN Inactive VITAMINS 0.8 MG TABS take 1 tab po qday 08/08 VITAMINS 0.8 MG TABS [id number] Inactive TESSALON PERLES 100 MG CAP 1 tablet by mouth 3 times daily 11/01 TESSALON PERLES 100 MG CAP [id number] BENZONATATE Inact zaid AMOXICILLIN 500 MG CAP 1 tab by mouth 3 times daily 08/12/16 AMOXICILLIN 500 MG CAP 407938 AMOXICILLIN Inactive GUAIFENESIN-CODEINE 100-10 MG/5ML ORAL SYRP 2 tsp every 6 hours prn GUAIFENESIN-CODEINE 100-10 MG/5ML ORAL SYRP 993822 GUAIFENESIN-CODEINE Inactive VICKS DAYQUIL SEVERE COLD/FLU TABS 1 tab every 6 hours prn 12/10 VICKS DAYQUIL SEVERE COLD/FLU TABS PHENYLEPHRINE -DM-GG-APAP TABS Inactive BACTRIM DS 800-160 MG TABS 1 twice a day BACTRIM DS 800- 160 MG TABS 390186 SULFAMETHOXAZOLE-TRIMETHOPRIM Inactive PROMETHAZINE HCL 25 MG TABS 1 four times a day as needed for vomiting PROMETHAZINE HCL 25 MG TABS 506247 PROMETHAZINE HCL Inactive ZYRTEC ALLERGY 10 MG CAPS 1 po qd ZY RTEC ALLERGY 10 MG CAPS CETIRIZINE HCL Inactive MACROBID 100 MG CAP 1 cap by mouth twice daily MACROBID 100 MG CAP 2909354 NITROFURANTOIN MONOHYD MACRO Inactive LOMOTIL 2.5-0.025 MG TABS 1 to 2 four times a day as needed for diarrhea LOMOTIL 2.5-0.025 MG TABS 1624188 DIPHENOXYLATE-A TROPINE Inactive CYCLOBENZAPRINE HCL 10 MG TABS 1/2 - 1 tablet by mouth three times daily as needed for muscle spasm/pain CYCLOBENZAP RINE HCL 10 MG TABS 158771 CYCLOBENZAPRINE HCL Inactive AMOXICILLIN 500 MG TABS 2 tabs twice a day for 10 days AMOXICILLIN 500 MG TABS 980591 AMOXICILLIN Inactive LOMOTIL 2.5-0.025 MG TAB 1 to 2 four times a day as needed f or diarrhea LOMOTIL 2.5-0.025 MG TAB 0049538 DIPHENOXYLATE-AT ROPINE Inactive ZOFRAN 4 MG ORAL TABS 1 TAB PO Q 6 HRS PRN NAUSEA 2014 ZOFRAN 4 MG ORAL TABS 156527 ONDANSETRON HCL Inactive CITRATE OF MAGNESIA ORAL SOLN 1 bottle today for constipation 20 07/10/15 CITRATE OF MAGNESIA ORAL SOLN 4048544 MAGNESIUM CITRATE Inactive PROMETHAZINE HCL 12.5 MG TABS 1 tablet by mouth every 6 hours as needed for nausea/vomiting PROMETHAZINE HCL 12.5 MG TABS 893328 PROMETHAZINE HCL Inactive PREDNISONE 20 MG TAB 1 tablet twice daily for 2 d ays, then 1 tablet once daily for 2 days PREDNISONE 20 MG TAB 888069 PREDNISONE Inac tive ALPRAZOLAM 0.25 MG TAB 1 tablet by mouth every 8 hours as ne eded for stress ALPRAZOLAM 0.25 MG TAB 386900 ALPRAZOLAM Inact zaid FLONASE 50 MCG/ACT SUSP 1 spray each nostril twice d aily for allergies and runny nose until gone FLONASE 50 MCG/ACT SUSP 3171038 FLUTICASONE PROPIONATE Inactive PREDNISONE 20 MG TAB 1 tablet daily for airway inflammation 2015 PREDNISONE 20 MG TAB 307016 PREDNISONE Inactive NAPROXEN 500 MG TAB Take 1 tab BID NAPROXEN 500 MG TAB 290800 NAPROXEN Inactive ZOLOFT 50 MG TAB 1 tablet by mouth daily ZOLOFT 50 MG TAB 989926 SERTRALINE HCL Inactive LOMOTIL 2.5-0.025 MG TAB 1 tab po four times a day as needed for diarrhea LOMOTIL 2.5-0.025 MG TAB 1126658 DIPHENOXYLATE-AT ROPINE Inactive CETIRIZINE HCL 10 MG ORAL TABS 1 po qd PRN Allergies 2 CETIRIZINE HCL 10 MG ORAL TABS 5990217 CETIRIZINE HCL Inactive TUSSIONEX PENNKINETIC ER 10-8 MG/5ML LQCR 5ml po q12hr PRN Cough TUSSIONEX PENNKINETIC ER 10-8 MG/5ML LQCR HYDROCOD POLST-CHLORPHEN POLST Inactive NEXPLANON IMPL right arm subcutaneously NEXPLANO N IMPL ETONOGESTREL IMPL Inactive PROTONIX 40 MG ORAL TBEC 1 po q a.m. PRO TONIX 40 MG ORAL TBEC 361154 PANTOPRAZOLE SODIUM Inactive AMOXICILLIN 500 MG TABS take 1 tab po TID AMOXICILLIN 500 MG TABS 979506 AMOXICILLIN Inactive AMOXICILLIN 500 MG CAP 1 tab by mouth 3 times daily 09/23/20 AMOXICILLIN 500 MG CAP 207944 AMOXICILLIN Inactive ZITHROMAX 250 MG TAB 2 po today, then 1 po q days 2-5 ZITHROMAX 250 MG TAB 023599 AZITHROMYCIN Inactive ZITHROMAX 250 MG TAB 2 po today, then 1 po q days 2-5 ZITHROMAX 250 MG TAB 280933 AZITHROMYCIN Inactive AZITHROMYCIN 500 MG TABS 1 PO q day x 6 days 3 AZITHROMYCIN 500 MG TABS 0256757 AZITHROMYCIN Inactive BACTRIM 400-80 MG TABS take one po BID BA CTRIM 400-80 MG TABS 049698 SULFAMETHOXAZOLE-TRIMETHOPRIM Inactive AZITHROMYCIN 250 MG TABS 2 po qd x 1 day, then 1 po qd x 4 days AZITHROMYCIN 250 MG TABS 582714 AZITHROMYCIN Inactiv e PREDNISONE 20 MG TAB 2 tabs daily for 3 days, 1 t ab daily for 3 days, 1/2 tab daily for 2 days PREDNISONE 20 MG TAB 647512 PREDNISON E Inactive ZITHROMAX 250 MG TAB 2 po today, then 1 po q days 2-5 ZITHROMAX 250 MG TAB 099421 AZITHROMYCIN Inactive FLAGYL 500 MG TAB 1 tablet by mouth two times daily 07/11/29 FLAGYL 500 MG TAB 605455 METRONIDAZOLE Inactive AUGMENTIN 875-125 MG TAB 1 tab by mouth twice daily with food 08/12/16 AUGMENTIN 875-125 MG TAB 335785 AMOXICILLIN-POT CLAVULA ANGELO Inactive NAPROXEN 500 MG TAB one tab PO BID NAPROXEN 500 MG TAB 598123 NAPROXEN Inactive PREDNISONE 20 MG TAB 2 tabs daily for 3 days, 1 t ab daily for 3 days, 1/2 tab daily for 2 days PREDNISONE 20 MG TAB 378858 PREDNISON E Inactive AZITHROMYCIN 250 MG TABS 2 po qd x 1 day, then 1 po qd x 4 days AZITHROMYCIN 250 MG TABS 748013 AZITHROMYCIN Inactiv e PREDNISONE 20 MG TAB 2 tabs daily for 3 days, 1 t ab daily for 3 days, 1/2 tab daily for 2 days PREDNISONE 20 MG TAB 356298 PREDNISON E Inactive ZITHROMAX Z-EMIL 250 MG TABS 2 today, then 1 daily for 4 days 201 03/31/18 ZITHROMAX Z-EMIL 250 MG TABS 992898 AZITHROMYCIN Inac tive CEFDINIR 300 MG CAPS 1 po BID x 10 days C EFDINIR 300 MG CAPS 20030127 CEFDINIR Inactive CEFDINIR 300 MG CAPS 1 po BID x 10 days C EFDINIR 300 MG CAPS 977947 CEFDINIR Inactive PREDNISONE 20 MG TAB 2 tabs daily for 3 days, 1 t ab daily for 3 days, 1/2 tab daily for 2 days PREDNISONE 20 MG TAB 652146 PREDNISON E Inactive BACTRIM DS 800-160 MG TAB 1 tab by mouth twice daily 2 BACTRIM DS 800-160 MG TAB 669125 TRIMETHOPRIM-SULFAMETHOXAZOLE Inac tive Advance Directives Directive Description [...] Unit Range Description Lab Report: CBC, Quant [place] - Hematology leukocyte count, blood 7.8 10^3/MM^3 [...] 263 10^3/MM^3 10*3/mm3 142-424 Lab Report: Chlamydia/GC [facility]/[id number] - Lab chlamydia DNA probe NOT DETECTED NOT DETECTED Lab Report: Chlamydia/GC [facility]/[id number] - Microbiology Neisseria gonorrhoeae DNA probe NOT [...] 5.0-8.5 Encounters Code Encounter Date Provider Facility CPT-05583 Level 3 Est. Patient 11:35:15 CUSTOMER CARE SPECIALIST Arie mcqueen MD [facility] CPT-70617 Level 3 Est. Patient 15:40:28 CDT Brii And melinaon TECHNOLOGY ASSISTANT [facility]-40574 Level 3 Est. Patient 16:40:36 CDT Arie mcqueen MD [facility]-49698 Level 4 Est. Patient 15:29:22 CUSTOMER CARE SPECIALIST Arie mcqueen MD [facility] CPT-53104 Level 3 Est. Patient 15:18:16 CUSTOMER CARE SPECIALIST Jono black [facility]-32748 Level 4 Est. Patient 12:08:40 CUSTOMER CARE SPECIALIST Steve [facility]-17875 Level 3 Est. Patient 09:24:42 CDT Brii And erson [facility] CPT-80564 Level 3 Est. Patient 09:12:56 CDT Arie mcqueen MD [facility]-71006 Level 3 Est. Patient 16:40:54 CDT Jose Zhong MD [facility] CPT-84806 Level 2 Est. Patient 13:01:13 CDT Bladeon [facility]-36223 Level 3 Est. Patient 11:55:30 CUSTOMER CARE SPECIALIST Jono black [facility]-18848 Level 3 Est. Patient 09:52:36 CUSTOMER CARE SPECIALIST Steve TECHNOLOGY ASSISTANT [facility] CPT-82333 Level 3 Est. Patient 16:25:33 CUSTOMER CARE SPECIALIST Rich Rosales MD [facility] CPT-38754 Level 3 Est. Patient 20:33:55 CDT Arie mcqueen MD [facility] CPT-38022 Level 3 Est. Patient 14:18:20 CDT Rich Rosales MD [facility] CPT-68162 Level 4 Est. Patient 09:34:31 CDT Arie mcqueen MD [facility] CPT-98441 Level 3 Est. Patient 09:08:55 CUSTOMER CARE SPECIALIST Liliana vincent MD [facility] CPT-93179 Level 3 Est. Patient 16:44:07 CUSTOMER CARE SPECIALIST Arie mcqueen MD [facility] CPT-25329 Level 3 Est. Patient 10:44:27 CDT Arie mcqueen MD [facility] CPT-58019 Level 3 Est. Patient 08:55:41 CDT Jose Zhong MD [facility] CPT-23814 Level 3 Est. Patient 18:37:31 CDT Liliana vincent MD [facility] CPT-48810 Level 3 Est. Patient 14:28:23 CDT Abelardo HERNANDEZ [facility] CPT-94819 Level 3 Est. Patient 15:18:13 CUSTOMER CARE SPECIALIST Arie mcqueen MD [facility] CPT-87654 Level 3 Est. Patient 10:11:29 CUSTOMER CARE SPECIALIST Arie mcqueen MD [facility] CPT-36022 Level 3 Est. Patient 10:55:57 CUSTOMER CARE SPECIALIST Jono black DO [facility] CPT-49288 Level 3 Est. Patient 17:29:05 CDT Arie mcqueen MD [facility] Procedures Code Procedure Name Date Entry Date Standard Desc ription CPT-84950 Nexplanon Removal 15:40:28 CDT CPT-24215 Sono transvag pelvis non OB uterus ovari es cervix - XRAY USE ONLY 08:58:14 CUSTOMER CARE SPECIALIST CPT-07868 UA w micro - LAB USE ONLY 16:04:56 CUSTOMER CARE SPECIALIST 2015 CPT-35011 Wet Prep/GEN - LAB USE ONLY 16:04:56 CUSTOMER CARE SPECIALIST 20 08/10/29 CPT-47065 First Vx - Ix admin via ID I M or jet injects without counseling by physician 16:57:10 CDT CPT-95403 Fluzone Preservative Free Intramuscular Suspension 16:57:10 CDT CPT-J0696 Rocephin 1000 mg (Ceftriaxone) 11:49:23 CDT CPT-J1040 Depo Medrol 80 mg (Methyl Prednisolone A cetate) 11:49:23 CDT CPT-J1100 Decadron 8mg (Dexamethasone) 11:49:23 CDT 2 CPT-32525 Abx/Therapy Injection 11:49:23 CDT CPT-58898 Abx/Therapy Injection 11:49:23 CDT CPT-59851 Abd compl w upright 09:07:26 CUSTOMER CARE SPECIALIST CPT-84073 Ear Wash 16:12:47 CUSTOMER CARE SPECIALIST CPT-OV Office Visit 11:12:01 CDT CPT-OV Office Visit 15:30:23 CDT CPT-12002 Sono pelvis non OB uterus ovaries cervix 15:50:44 CDT CPT-39115 Hand comp min 3V 16:42:32 CDT CPT-50102 Abd compl w upright 12:17:01 CDT CPT-58426 Nexplanon Placement 15:07:39 CUSTOMER CARE SPECIALIST CPT-20358 Removal of IUD 15:07:39 CUSTOMER CARE SPECIALIST CPT-67629 TB Tubersol 12:09:32 CDT CPT-31460 TB Tubersol 13:55:43 CDT
--- OUTSIDE RECORDS SUMMARY | 2020-03-03 08:11 | XMS REPORT | Clinical Summary ---
Author Author Admin, Diamante Marcelo Organization [facility] Address Unknown Phone Unavailable Allergies, Adverse [...] with depression 300.4 Active Brii Ramirez l [facility] Dysthymic disorder URI 465.9 Active Jono Gagnon DO Acu te upper respiratory infections of unspecified site Vaginal bleeding 623.8 Resolved Jose Zhong MD Other specified noninflammatory disorders of vagina High risk sexual behavior V69.2 Active Arie Casper MD High-risk sexual behavior GERD 530.81 Active Arie Casper MD Esophageal reflux Encounter for surveillance of implantable subdermal contraceptiv e Active Brii Petrona [facility] Vaginal bleeding 623.8 Active Arie Casper MD Other specified noninflammatory disorders of vagina Influenza like illness 487.1 Active Jose Mcwilliams MD Influenza with other respiratory manifestations Sinusitis 473.9 Active Jessica Heaton [facility] Unspecified sinusitis (chronic) BREAST CANCER ICD-V16.3 Inactive [...] Generic Name ND Status Provider Patient Instruction TUSSIONEX PENNKINETIC ER 10-8 MG/5ML ORAL SUSPENSION E XTENDED RELEASE 5ml po q12hr PRN Cough HYDROCOD POLST-CHLORPHEN POLST 86550238173 Active Arie Casper MD Active GUAIFENESIN DM 400-20 MG ORAL TABLET 1 pill by mouth t wice daily, if needed for cough DEXTROMETHORPHAN-GUAIFENESIN 82477155664 Active Jessica Heaton APRN Active CEFDINIR 300 MG ORAL CAPSULE 1 po BID x 10 days CEFDINIR 89213285424 Active Jessica Heaton APRN Active CHERATUSSIN AC 100-10 MG/5ML ORAL SYRUP 1 tsp by mouth every 4 hours as needed for cough GUAIFENESIN-CODEINE 10411891307 No Longe r Active Jessica Heaton APRN Active TAMIFLU 75 MG ORAL CAPSULE 1 po BID x 5 days 0 OSELTAMIVIR PHOSPHATE 19121246428 No Longer Active Jose Zhong MD Activ e ZITHROMAX Z-EMIL 250 MG ORAL TABLET 2 today, then 1 daily for 4 d ays AZITHROMYCIN 81616256653 No Longer Active Arie Casper MD Active PROTONIX 40 MG ORAL TABLET DELAYED RELEASE 1 po q a.m. PANTOPRAZOLE SODIUM 05616440279 No Longer Active Arie Casper MD Active BACTRIM DS 800-160 MG ORAL TABLET 1 tab by mouth twice daily 201 05/02/30 TRIMETHOPRIM-SULFAMETHOXAZOLE 95212031102 No Longer Active R uth Ty Active NEXPLANON IMPLANT right arm subcutaneously ETONOGESTREL IMPL 56316890875 No Longer Active Brii Russ APRN Active TUSSIONEX PENNKINETIC ER 10-8 MG/5ML ORAL SUSPENSION E XTENDED RELEASE 5ml po q12hr PRN Cough HYDROCOD POLST-CHLORPHEN POLST 5 6997415634 No Longer Active Brii Russ APRN Active CETIRIZINE HCL 10 MG ORAL TABLET 1 po qd PRN Allergies CETIRIZINE HCL 29570471634 No Longer Active Brii Russ APRN Activ e PREDNISONE 20 MG ORAL TABLET 2 tabs daily for 3 days, 1 tab daily for 3 days, 1/2 tab daily for 2 days PREDNISONE 77268814934 No Longer Active Arie Casper MD Active LOMOTIL 2.5-0.025 MG ORAL TABLET 1 tab po four times a day as needed for diarrhea DIPHENOXYLATE-ATROPINE 25535183890 No Lo nger Active Arie Casper MD Active ZOLOFT 50 MG ORAL TABLET 1 tablet by mouth daily 12/08 SERTRALINE HCL 25776354797 No Longer Active Arie Casper MD Ac tive NAPROXEN 500 MG ORAL TABLET Take 1 tab BID NAPR OXEN 39491138485 No Longer Active Arie Casper MD Active CEFDINIR 300 MG ORAL CAPSULE 1 po BID x 10 days CEFDINIR 30085838842 No Longer Active Brii Russ APRN Active PREDNISONE 20 MG ORAL TABLET 1 tablet daily for airway inflammat ion PREDNISONE 33743284511 No Longer Active Brii Russ APRN A ctive CEFDINIR 300 MG ORAL CAPSULE 1 po BID x 10 days CEFDINIR 89171967570 No Longer Active Jono Gagnon DO Active FLONASE 50 MCG/ACT NASAL SUSPENSION 1 spray each nostr il twice daily for allergies and runny nose until gone FLUT ICASONE PROPIONATE 76018146391 No Longer Active Jono Gagnon DO Active ALPRAZOLAM 0.25 MG ORAL TABLET 1 tablet by mouth every 8 hours as needed for stress ALPRAZOLAM 51892430892 No Longer Active Jono Gagnon DO Active ZITHROMAX Z-EMIL 250 MG ORAL TABLET 2 today, then 1 daily for 4 d ays AZITHROMYCIN 02574945452 No Longer Active Arie Casper MD Active PREDNISONE 20 MG ORAL TABLET 2 tabs daily for 3 days, 1 tab daily for 3 days, 1/2 tab daily for 2 days PREDNISONE 16481448434 No Longer Active Brii Arell [facility] Active PREDNISONE 20 MG ORAL TABLET 1 tablet twice daily for 2 days, then 1 tablet once daily for 2 days PREDNISONE 25198203046 No Longer Active Brii Russ APRN Active PROMETHAZINE HCL 12.5 MG ORAL TABLET 1 tablet by mouth every 6 hours as needed for nausea/vomiting PROMETHAZINE HCL 85929140106 No L onger Active Jono Gagnon DO Active CITRATE OF MAGNESIA ORAL SOLUTION 1 bottle today for constipatio n MAGNESIUM CITRATE 76017859948 No Longer Active Jono Gagnon DO Active ZOFRAN 4 MG ORAL TABLET 1 TAB PO Q 6 HRS PRN NAUSEA 20 07/10/15 ONDANSETRON HCL 56037261038 No Longer Active Brii Russ APRN Acti ve LOMOTIL 2.5-0.025 MG ORAL TABLET 1 to 2 four times a day as needed for diarrhea DIPHENOXYLATE-ATROPINE 05423411652 No Longer Active January Russ APRN Active AMOXICILLIN 500 MG ORAL TABLET 2 tabs twice a day for 10 days 20 07/09/11 AMOXICILLIN 08540307461 No Longer Active Brii Russ APRN Active CYCLOBENZAPRINE HCL 10 MG ORAL TABLET 1/2 - 1 tablet b y mouth three times daily as needed for muscle spasm/pain CYCLOBENZAPRINE HCL 10921772768 No Longer Active Arie Casper MD Active LOMOTIL 2.5-0.025 MG ORAL TABLET 1 to 2 four times a day as needed for diarrhea DIPHENOXYLATE-ATROPINE 46919455669 No Longer Active D freddy Casper MD Active MACROBID 100 MG ORAL CAPSULE 1 cap by mouth twice daily NITROFURANTOIN MONOHYD MACRO 61719765205 No Longer Active Arie Casper MD Active ZYRTEC ALLERGY 10 MG ORAL CAPSULE 1 po qd CE TIRIZINE HCL 55682227913 No Longer Active Arie Casper MD Active AZITHROMYCIN 250 MG ORAL TABLET 2 po qd x 1 day, then 1 po q d x 4 days AZITHROMYCIN 23961546842 No Longer Active Jessica salgado [facility] Active PREDNISONE 20 MG ORAL TABLET 2 tabs daily for 3 days, 1 tab daily for 3 days, 1/2 tab daily for 2 days PREDNISONE 77281531215 No Longer Active Jessica Heaton [facility] Active PROMETHAZINE HCL 25 MG ORAL TABLET 1 four times a day as nee ded for vomiting PROMETHAZINE HCL 85546755856 No Longer Active Myrna Roberto MD Active BACTRIM DS 800-160 MG ORAL TABLET 1 twice a day 05/30 SULFAMETHOXAZOLE-TRIMETHOPRIM 81171880787 No Longer Active Myrna Roberto MD Active VICKS DAYQUIL SEVERE COLD/FLU TABLET 1 tab every 6 hours prn 201 02/22/17 [id number] TABS 77983497203 No Longer Active K fany Roberto MD Active GUAIFENESIN-CODEINE 100-10 MG/5ML ORAL SYRUP 2 tsp every 6 hours prn GUAIFENESIN-CODEINE 21036751826 No Longer Active Myrna Roberto MD Active NAPROXEN 500 MG ORAL TABLET one tab PO BID NAPR OXEN 75999060075 No Longer Active Myrna Roberto MD Active AUGMENTIN 875-125 MG ORAL TABLET 1 tab by mouth twice daily with food AMOXICILLIN-POT CLAVULANATE 42568636023 No Longer Act zaid Liliana Estrada MD PhD Active AMOXICILLIN 500 MG ORAL CAPSULE 1 tab by mouth 3 times daily 201 02/21/05 AMOXICILLIN 00738163723 No Longer Active Liliana Estrada MD PhD Active TESSALON PERLES 100 MG ORAL CAPSULE 1 tablet by mouth 3 times da cory BENZONATATE 49937071797 No Longer Active Liliana Estrada MD PhD Active FLAGYL 500 MG ORAL TABLET 1 tablet by mouth two times daily 2014 METRONIDAZOLE 84403161188 No Longer Active Nilam Raida Ac tive ZITHROMAX 250 MG ORAL TABLET 2 po today, then 1 po q days 2-5 20 06/08/16 AZITHROMYCIN 91752210369 No Longer Active Arie Casper MD Active VITAMINS 0.8 MG ORAL TABLET take 1 tab po qday [id number] 07818334099 No Longer Active Arie Casper MD Active IBUPROFEN 800 MG ORAL TABLET take one po Q 8 hours 201 02/01/16 IBUPROFEN 05371952369 No Longer Active Arie Casper MD Acti ve [facility] TUSSIN COUGH/COLD CF 5-10-100 MG/5ML ORAL LIQUID 2 teasp oons every 4 hours [id number] 19346232553 No Longer Active Blaine Casper MD Active COMTREX COLD/COUGH DAY/NITE MS 5-2-10-325 MG ORAL 2 caps deja ry 4 hours [id number] 67265824611 No Longer Active Da aleksandra Casper MD Active CHLORASEPTIC MAX SORE THROAT 15-10 MG MOUTH/THROAT LOZENGE 1 every 2 hours prn BENZOCAINE-MENTHOL 20636563642 No Longer Active Arie Casper MD Active PREDNISONE 20 MG ORAL TABLET 2 tabs daily for 3 days, 1 tab daily for 3 days, 1/2 tab daily for 2 days PREDNISONE 31126814950 No Longer Active Jose Zhong MD Active AZITHROMYCIN 250 MG ORAL TABLET 2 po qd x 1 day, then 1 po q d x 4 days AZITHROMYCIN 72216630759 No Longer Active Jose Mcwilliams MD Active ZOFRAN ODT 4 MG ORAL TABLET DISINTEGRATING 1 po q6hr PRN Nausea ONDANSETRON 53117821388 No Longer Active Rich Rosales MD Active ZOFRAN 4 MG ORAL TABLET 1 tablet every 4 hours ONDANSETRON HCL 67271911629 No Longer Active Rich Rosales MD Activ e MUCINEX 600 MG ORAL TABLET EXTENDED RELEASE 12 HOUR Ta ke 1-2 tablets every 12 hours GUAIFENESIN 99075605019 No Longer Active Rich Rosales MD Active BACTRIM 400-80 MG ORAL TABLET take one po BID SULFAMETHOXAZOLE-TRIMETHOPRIM 56518394845 No Longer Active Abelardo HERNANDEZ Active AZITHROMYCIN 500 MG ORAL TABLET 1 PO q day x 6 days 20 03/02/23 AZITHROMYCIN 89119111719 No Longer Active Tin HERNANDEZ Activ e ZITHROMAX 250 MG ORAL TABLET 2 po today, then 1 po q days 2-5 20 10/03/08 AZITHROMYCIN 04820503483 No Longer Active Arie Casper MD Active ZITHROMAX 250 MG ORAL TABLET 2 po today, then 1 po q days 2-5 20 09/23/25 AZITHROMYCIN 31840692942 No Longer Active Arie Casper MD Active AMOXICILLIN 500 MG ORAL CAPSULE 1 tab by mouth 3 times daily 201 11/24/09 AMOXICILLIN 86698056052 No Longer Active Arie Casper MD Active BACTRIM DS 800-160 MG ORAL TABLET 1 tab by mouth twice daily 201 11/03/14 TRIMETHOPRIM-SULFAMETHOXAZOLE 22718914432 No Longer Active Fozia Casper MD Active AMOXICILLIN 500 MG ORAL TABLET take 1 tab po TID 08/05 AMOXICILLIN 71579546621 No Longer Active Aire Casper MD Acti [...] 4 hours ZOFRAN 4 MG ORAL TABLET 611967 ONDANSETRON HCL Inactive ZOFRAN ODT 4 MG ORAL TABLET DISINTEGRATING 1 po q6hr PRN Nausea ZOFRAN ODT 4 MG ORAL TABLET DISINTEGRATING 343933 ONDAN SETRON Inactive CHLORASEPTIC MAX SORE THROAT 15-10 MG MOUTH/THROAT LOZENGE 1 every 2 hours prn CHLORASEPTIC MAX SORE THROAT 15-10 MG MOUTH/THROAT LOZENGE BENZOCAINE-MENTHOL Inactive COMTREX COLD/COUGH DAY/NITE MS 5-2-10-325 MG ORAL 2 caps deja ry 4 hours COMTREX COLD/COUGH DAY/NITE MS 5-2-10-325 MG ORA L [id number] Inactive [facility] TUSSIN COUGH/COLD CF 5-10-100 MG/5ML ORAL LIQUID 2 teasp oons every 4 hours [facility] TUSSIN COUGH/COLD CF 5-10-100 MG/5ML ORAL LI QUID [id number] Inactive IBUPROFEN 800 MG ORAL TABLET take one po Q 8 hours 201 02/01/16 IBUPROFEN 800 MG ORAL TABLET IBUPROFEN Inactive VITAMINS 0.8 MG ORAL TABLET take 1 tab po qday VITAMINS 0.8 MG ORAL TABLET [id number] E-FA Inactive TESSALON PERLES 100 MG ORAL CAPSULE 1 tablet by mouth 3 times da cory TESSALON PERLES 100 MG ORAL CAPSULE 223429 BENZONATATE Inactive AMOXICILLIN 500 MG ORAL CAPSULE 1 tab by mouth 3 times daily 201 02/21/05 AMOXICILLIN 500 MG ORAL CAPSULE 297742 AMOXICILLIN Inactive GUAIFENESIN-CODEINE 100-10 MG/5ML ORAL SYRUP 2 tsp every 6 hours prn GUAIFENESIN-CODEINE 100-10 MG/5ML ORAL SYRUP 497290 GUAIFENESIN-CODEINE Inactive VICKS DAYQUIL SEVERE COLD/FLU TABLET 1 tab every 6 hours prn 201 02/22/17 VICKS DAYQUIL SEVERE COLD/FLU TABLET PHENYLEPHRI [id number]-APAP TABS Inactive BACTRIM DS 800-160 MG ORAL TABLET 1 twice a day 05/30 BACTRIM DS 800-160 MG ORAL TABLET 211694 SULFAMETHOXAZOLE-TRIMETHOPRIM Inactiv e PROMETHAZINE HCL 25 MG ORAL TABLET 1 four times a day as nee ded for vomiting PROMETHAZINE HCL 25 MG ORAL TABLET 668447 PROMETHAZINE HCL Inactive ZYRTEC ALLERGY 10 MG ORAL CAPSULE 1 po qd ZYRTEC ALLERGY 10 MG ORAL CAPSULE CETIRIZINE HCL Inactive MACROBID 100 MG ORAL CAPSULE 1 cap by mouth twice daily MACROBID 100 MG ORAL CAPSULE 6106872 NITROFURANTOIN MONOHYD MACRO In active LOMOTIL 2.5-0.025 MG ORAL TABLET 1 to 2 four times a day as needed for diarrhea LOMOTIL 2.5-0.025 MG ORAL TABLET 6513502 DIPHENOXYLATE-ATROPINE Inactive CYCLOBENZAPRINE HCL 10 MG ORAL TABLET 1/2 - 1 tablet b y mouth three times daily as needed for muscle spasm/pain CYCLOBEN ZAPRINE HCL 10 MG ORAL TABLET 850017 CYCLOBENZAPRINE HCL Inactive AMOXICILLIN 500 MG ORAL TABLET 2 tabs twice a day for 10 days 20 07/09/11 AMOXICILLIN 500 MG ORAL TABLET 310969 AMOXICILLIN I nactive LOMOTIL 2.5-0.025 MG ORAL TABLET 1 to 2 four times a day as needed for diarrhea LOMOTIL 2.5-0.025 MG ORAL TABLET 6897825 DIPHENOXYLATE-ATROPINE Inactive ZOFRAN 4 MG ORAL TABLET 1 TAB PO Q 6 HRS PRN NAUSEA 20 07/10/15 ZOFRAN 4 MG ORAL TABLET 770947 ONDANSETRON HCL Inactive CITRATE OF MAGNESIA ORAL SOLUTION 1 bottle today for constipatio n CITRATE OF MAGNESIA ORAL SOLUTION 2362253 MAGNESIUM CITR ATE Inactive PROMETHAZINE HCL 12.5 MG ORAL TABLET 1 tablet by mouth every 6 hours as needed for nausea/vomiting PROMETHAZINE HCL 12.5 MG ORA L TABLET 529679 PROMETHAZINE HCL Inactive PREDNISONE 20 MG ORAL TABLET 1 tablet twice daily for 2 days, then 1 tablet once daily for 2 days PREDNISONE 20 MG ORAL TABLET 332867 PREDNISONE Inactive ALPRAZOLAM 0.25 MG ORAL TABLET 1 tablet by mouth every 8 hours as needed for stress ALPRAZOLAM 0.25 MG ORAL TABLET 093188 ALPRA ZOLAM Inactive FLONASE 50 MCG/ACT NASAL SUSPENSION 1 spray each nostr il twice daily for allergies and runny nose until gone FLON ASE 50 MCG/ACT NASAL SUSPENSION 0199638 FLUTICASONE PROPIONATE Inactive PREDNISONE 20 MG ORAL TABLET 1 tablet daily for airway inflammat ion PREDNISONE 20 MG ORAL TABLET 453244 PREDNISONE Arlen ctive NAPROXEN 500 MG ORAL TABLET Take 1 tab BID NAPROXEN 500 MG ORAL TABLET 817748 NAPROXEN Inactive ZOLOFT 50 MG ORAL TABLET 1 tablet by mouth daily 12/08 ZOLOFT 50 MG ORAL TABLET 696577 SERTRALINE HCL Inactive LOMOTIL 2.5-0.025 MG ORAL TABLET 1 tab po four times a day as needed for diarrhea LOMOTIL 2.5-0.025 MG ORAL TABLET 1694605 DIPHENOXYLATE-ATROPINE Inactive CETIRIZINE HCL 10 MG ORAL TABLET 1 po qd PRN Allergies CETIRIZINE HCL 10 MG ORAL TABLET 7364407 CETIRIZINE HCL Inactiv e TUSSIONEX PENNKINETIC ER 10-8 MG/5ML ORAL SUSPENSION E XTENDED RELEASE 5ml po q12hr PRN Cough TUSSIONEX PENNKINETI C ER 10-8 MG/5ML ORAL SUSPENSION EXTENDED RELEASE HYDROCOD POLST-CHLORPHEN POLST I nactive NEXPLANON IMPLANT right arm subcutaneously NEXPLANON IMPLANT ETONOGESTREL IMPL Inactive PROTONIX 40 MG ORAL TABLET DELAYED RELEASE 1 po q a.m. PROTONIX 40 MG ORAL TABLET DELAYED RELEASE 569165 PANTOPRAZOLE SODI UM Inactive CHERATUSSIN AC 100-10 MG/5ML ORAL SYRUP 1 tsp by mouth every 4 hours as needed for cough CHERATUSSIN AC 100-10 MG/5ML ORAL SYRUP 9 44237 GUAIFENESIN-CODEINE Inactive AMOXICILLIN 500 MG ORAL TABLET take 1 tab po TID 08/05 AMOXICILLIN 500 MG ORAL TABLET 667469 AMOXICILLIN Inactive AMOXICILLIN 500 MG ORAL CAPSULE 1 tab by mouth 3 times daily 201 11/24/09 AMOXICILLIN 500 MG ORAL CAPSULE 881544 AMOXICILLIN Inactive ZITHROMAX 250 MG ORAL TABLET 2 po today, then 1 po q days 2-5 20 09/23/25 ZITHROMAX 250 MG ORAL TABLET 511828 AZITHROMYCIN Grant ctive ZITHROMAX 250 MG ORAL TABLET 2 po today, then 1 po q days 2-5 20 10/03/08 ZITHROMAX 250 MG ORAL TABLET 049390 AZITHROMYCIN Grant ctive AZITHROMYCIN 500 MG ORAL TABLET 1 PO q day x 6 days 20 03/02/23 AZITHROMYCIN 500 MG ORAL TABLET 3873771 AZITHROMYCIN Inactive BACTRIM 400-80 MG ORAL TABLET take one po BID BACTRIM 400- 80 MG ORAL TABLET 839065 SULFAMETHOXAZOLE-TRIMETHOPRIM Inactive AZITHROMYCIN 250 MG ORAL TABLET 2 po qd x 1 day, then 1 po q d x 4 days AZITHROMYCIN 250 MG ORAL TABLET 363036 AZITHROMY ALLISON Inactive PREDNISONE 20 MG ORAL TABLET 2 tabs daily for 3 days, 1 tab daily for 3 days, 1/2 tab daily for 2 days PREDNISONE 20 MG ORAL T ABLET 953480 PREDNISONE Inactive ZITHROMAX 250 MG ORAL TABLET 2 po today, then 1 po q days 2-5 20 06/08/16 ZITHROMAX 250 MG ORAL TABLET 522693 AZITHROMYCIN Grant ctive FLAGYL 500 MG ORAL TABLET 1 tablet by mouth two times daily 2014 FLAGYL 500 MG ORAL TABLET 601347 METRONIDAZOLE Inacti ve AUGMENTIN 875-125 MG ORAL TABLET 1 tab by mouth twice daily with food AUGMENTIN 875-125 MG ORAL TABLET 682982 AMOXICIL ELSA-POT CLAVULANATE Inactive NAPROXEN 500 MG ORAL TABLET one tab PO BID NAPROXEN 500 MG ORAL TABLET 238905 NAPROXEN Inactive PREDNISONE 20 MG ORAL TABLET 2 tabs daily for 3 days, 1 tab daily for 3 days, 1/2 tab daily for 2 days PREDNISONE 20 MG ORAL T ABLET 487561 PREDNISONE Inactive AZITHROMYCIN 250 MG ORAL TABLET 2 po qd x 1 day, then 1 po q d x 4 days AZITHROMYCIN 250 MG ORAL TABLET 357236 AZITHROMY ALLISON Inactive PREDNISONE 20 MG ORAL TABLET 2 tabs daily for 3 days, 1 tab daily for 3 days, 1/2 tab daily for 2 days PREDNISONE 20 MG ORAL T ABLET 970097 PREDNISONE Inactive ZITHROMAX Z-EMIL 250 MG ORAL TABLET 2 today, then 1 daily for 4 d ays ZITHROMAX Z-EMIL 250 MG ORAL TABLET 921613 AZITHROMYCIN Inactive CEFDINIR 300 MG ORAL CAPSULE 1 po BID x 10 days 12/18 CEFDINIR 300 MG ORAL CAPSULE 20030127 CEFDINIR Inactive CEFDINIR 300 MG ORAL CAPSULE 1 po BID x 10 days CEFDINIR 300 MG ORAL CAPSULE 565068 CEFDINIR Inactive PREDNISONE 20 MG ORAL TABLET 2 tabs daily for 3 days, 1 tab daily for 3 days, 1/2 tab daily for 2 days PREDNISONE 20 MG ORAL T ABLET 125204 PREDNISONE Inactive BACTRIM DS 800-160 MG ORAL TABLET 1 tab by mouth twice daily 201 05/02/30 BACTRIM DS 800-160 MG ORAL TABLET 763310 TRIMETHOPRIM-SULFAMETHOXAZOLE Inactive ZITHROMAX Z-EMIL 250 MG ORAL TABLET 2 today, then 1 daily for 4 d ays ZITHROMAX Z-EMIL 250 MG ORAL TABLET 125174 AZITHROMYCIN Inactive TAMIFLU 75 MG ORAL CAPSULE 1 po BID x 5 days 0 TAMIFLU 75 MG ORAL CAPSULE 714584 OSELTAMIVIR PHOSPHATE Inactive Advance Directives Directive Description [...] Lab Report: CBC, Quant [facility] - Hematology leukocyte count, blood 7.8 10^3/MM^3 [...] 5.0-8.5 Encounters Code Encounter Date Provider Facility CPT-09561 Level 3 Est. Patient 11:49:34 SEWER LINE PHOTO INSPECTOR Jessica boyd [facility] CPT-50605 Level 3 Est. Patient 14:55:50 SEWER LINE PHOTO INSPECTOR Jose Zhong MD [facility] CPT-51563 Level 3 Est. Patient 10:21:41 SEWER LINE PHOTO INSPECTOR Arie mcqueen MD [facility] CPT-72437 Level 3 Est. Patient 11:35:15 SEWER LINE PHOTO INSPECTOR Arie mcqueen MD [facility] CPT-88239 Level 3 Est. Patient 15:40:28 CDT Brii escalante [facility] CPT-64270 Level 3 Est. Patient 16:40:36 CDT Arie mcqueen MD [facility] CPT-48045 Level 4 Est. Patient 15:29:22 SEWER LINE PHOTO INSPECTOR Arie mcqueen MD [facility] CPT-96687 Level 3 Est. Patient 15:18:16 SEWER LINE PHOTO INSPECTOR Jono black DO [facility] CPT-24361 Level 4 Est. Patient 12:08:40 SEWER LINE PHOTO INSPECTOR Brii Are ll [facility] CPT-53719 Level 3 Est. Patient 09:24:42 CDT Brii Are ll [facility] CPT-47617 Level 3 Est. Patient 09:12:56 CDT Arie mcqueen MD [facility] CPT-11528 Level 3 Est. Patient 16:40:54 CDT Jose Zhong MD [facility] CPT-34527 Level 2 Est. Patient 13:01:13 CDT Brii Are ll [facility] CPT-72445 Level 3 Est. Patient 11:55:30 SEWER LINE PHOTO INSPECTOR Jono black [facility] CPT-66519 Level 3 Est. Patient 09:52:36 SEWER LINE PHOTO INSPECTOR Brii Are ll [facility] CPT-20841 Level 3 Est. Patient 16:25:33 SEWER LINE PHOTO INSPECTOR Rich Rosales MD [facility] CPT-71454 Level 3 Est. Patient 20:33:55 CDT Arie mcqueen MD [facility] CPT-15133 Level 3 Est. Patient 14:18:20 CDT Rich Rosales MD [facility] CPT-15243 Level 4 Est. Patient 09:34:31 CDT Arie mcqueen MD [facility] CPT-80995 Level 3 Est. Patient 09:08:55 SE[employer]ER LINE PHOTO INSPECTOR Liliana vincent MD PhD [facility] CPT-89683 Level 3 Est. Patient 16:44:07 SEWER LINE PHOTO INSPECTOR Arie mcqueen MD [facility] CPT-23579 Level 3 Est. Patient 10:44:27 CDT Arie mcqueen MD [facility] CPT-92438 Level 3 Est. Patient 08:55:41 CDT Jose Zhong MD [facility] CPT-19831 Level 3 Est. Patient 18:37:31 CDT Liliana vincent MD PhD [facility] CPT-05996 Level 3 Est. Patient 14:28:23 CDT Abelardo HERNANDEZ [facility] CPT-72217 Level 3 Est. Patient 15:18:13 SEWER LINE PHOTO INSPECTOR Arie mcqueen MD [facility] CPT-06370 Level 3 Est. Patient 10:11:29 SEWER LINE PHOTO INSPECTOR Arie mcqueen MD [facility] CPT-49042 Level 3 Est. Patient 10:55:57 SEWER LINE PHOTO INSPECTOR Jono black DO [facility] CPT-00887 Level 3 Est. Patient 17:29:05 CDT Arie mcqueen MD [facility] Procedures Code Procedure Name Date Entry Date Standard Desc ription CPT-58627 Nexplanon Removal 15:40:28 CDT CPT-72858 Sono transvag pelvis non OB uterus ovari es cervix - XRAY USE ONLY 08:58:14 SEWER LINE PHOTO INSPECTOR CPT-24737 UA w micro - LAB USE ONLY 16:04:56 SEWER LINE PHOTO INSPECTOR 2015 CPT-13915 Wet Prep/GEN - LAB USE ONLY 16:04:56 SEWER LINE PHOTO INSPECTOR 20 08/10/29 CPT-87786 First Vx - Ix admin via ID I M or jet injects without counseling by physician 16:57:10 CDT CPT-72312 Fluzone Preservative Free Intramuscular Suspension 16:57:10 CDT CPT-J0696 Rocephin 1000 mg (Ceftriaxone) 11:49:23 CDT CPT-J1040 Depo Medrol 80 mg (Methyl Prednisolone A cetate) 11:49:23 CDT CPT-J1100 Decadron 8mg (Dexamethasone) 11:49:23 CDT 2 CPT-62309 Abx/Therapy Injection 11:49:23 CDT CPT-08660 Abx/Therapy Injection 11:49:23 CDT CPT-89719 Abd compl w upright 09:07:26 SEWER LINE PHOTO INSPECTOR CPT-38488 Ear Wash 16:12:47 SEWER LINE PHOTO INSPECTOR CPT-OV Office Visit 11:12:01 CDT CPT-OV Office Visit 15:30:23 CDT CPT-88044 Sono pelvis non OB uterus ovaries cervix 15:50:44 CDT CPT-95164 Hand comp min 3V 16:42:32 CDT CPT-79867 Abd compl w upright 12:17:01 CDT CPT-64608 Nexplanon Placement 15:07:39 SEWER LINE PHOTO INSPECTOR CPT-22583 Removal of IUD 15:07:39 SEWER LINE PHOTO INSPECTOR CPT-31843 TB Tubersol 12:09:32 CDT CPT-09502 TB Tubersol 13:55:43 CDT
--- OUTSIDE RECORDS SUMMARY | 2020-03-03 08:12 | XMS REPORT | Clinical Summary ---
Author Author Admin, Diamante Marcelo Organization [facility] Address Unknown Phone Unavailable Allergies, Adverse [...] Nausea 787.02 Active Brii Larson VICE PRESIDENT COMPLIANCE Nausea alone URI 465.9 Active Jono Gagnon [...] a day as needed for diarrhea DIPHENOXYLATE-ATROPINE 21153560498 Active Roseann Crawford Active ZITHROMAX Z-EMIL 250 MG TABS 2 today, then 1 daily for 4 days 201 03/31/18 AZITHROMYCIN 61974971252 Active Arie Casper MD Ac tive ALPRAZOLAM 0.25 MG TAB 1 tablet by mouth every 8 hours as ne eded for stress ALPRAZOLAM 17758639584 Active Arie Casper MD Active PROTONIX 40 MG ORAL TBEC 1 po q a.m. PANTOPRAZO LE SODIUM 89235091703 Active Carline Ochoa RPT,RMA Active PREDNISONE 20 MG TAB 2 tabs daily for 3 days, 1 t ab daily for 3 days, 1/2 tab daily for 2 days PREDNISONE 07951307936 No Longer Active Brii Larson APRN Active PREDNISONE 20 MG TAB 1 tablet twice daily for 2 d ays, then 1 tablet once daily for 2 days PREDNISONE 58964881531 No Longer Active Brii Larson APRN Active FLONASE 50 MCG/ACT SUSP 1 spray each nostril twice d aily for allergies and runny nose until gone FLUTICASONE PROPIONATE Active Jono Gagnon DO Active PROMETHAZINE HCL 12.5 MG TABS 1 tablet by mouth every 6 hours as needed for nausea/vomiting PROMETHAZINE HCL 76814468446 No Longe r Active Jono Gagnon DO Active CITRATE OF MAGNESIA ORAL SOLN 1 bottle today for constipation 20 07/10/15 MAGNESIUM CITRATE 13341644009 No Longer Active Jono Gagnon DO Active ZOFRAN 4 MG ORAL TABS 1 TAB PO Q 6 HRS PRN NAUSEA 2014 ONDANSETRON HCL 82688808267 No Longer Active Brii Larson APRN A ctive LOMOTIL 2.5-0.025 MG TAB 1 to 2 four times a day as needed f or diarrhea DIPHENOXYLATE-ATROPINE 34324080311 No Longer Active January Lasron APRN Active AMOXICILLIN 500 MG TABS 2 tabs twice a day for 10 days AMOXICILLIN 80857360548 No Longer Active Brii Larson APRN Acti ve NEXPLANON IMPL ETONOGESTREL IMPL 49287084527 Active Rich Rosales MD Active CYCLOBENZAPRINE HCL 10 MG TABS 1/2 - 1 tablet by mouth three times daily as needed for muscle spasm/pain CYCLOBENZAPRINE HCL 17284995668 No Longer Active Arie Casper MD Active LOMOTIL 2.5-0.025 MG TABS 1 to 2 four times a day as needed for diarrhea DIPHENOXYLATE-ATROPINE 61316902020 No Longer Active Mason Casper MD Active MACROBID 100 MG CAP 1 cap by mouth twice daily NITROFURANTOIN MONOHYD MACRO 21874194937 No Longer Active Arie Casper MD Active ZYRTEC ALLERGY 10 MG CAPS 1 po qd CETIRIZINE HCL 91560214351 No Longer Active Arie Casper MD Active AZITHROMYCIN 250 MG TABS 2 po qd x 1 day, then 1 po qd x 4 days AZITHROMYCIN 52987708209 No Longer Active Jessica Heaton APRN Active PREDNISONE 20 MG TAB 2 tabs daily for 3 days, 1 t ab daily for 3 days, 1/2 tab daily for 2 days PREDNISONE 83325805667 No Longer Active Jessica Heaton APRN Active PROMETHAZINE HCL 25 MG TABS 1 four times a day as needed for vomiting PROMETHAZINE HCL 74295691821 No Longer Active Myrna Roberto MD Active BACTRIM DS 800-160 MG TABS 1 twice a day SULFAMETHOXAZOLE-TRIMETHOPRIM 86253961124 No Longer Active Myrna Roberto MD Active VICKS DAYQUIL SEVERE COLD/FLU TABS 1 tab every 6 hours prn 12/10 [id number]-[id number]-EZ-APAP TABS 28491008448 No Longer Active Myrna leigh MD Active GUAIFENESIN-CODEINE 100-10 MG/5ML ORAL SYRP 2 tsp every 6 hours prn GUAIFENESIN-CODEINE 83796012828 No Longer Active Myrna Roberto MD Active NAPROXEN 500 MG TAB one tab PO BID NAPROXEN 332 71180118 No Longer Active Myrna Roberto MD Active AUGMENTIN 875-125 MG TAB 1 tab by mouth twice daily with food 08/12/16 AMOXICILLIN-POT CLAVULANATE 24905534150 No Longer Active Liliana Estrada MD PhD Active AMOXICILLIN 500 MG CAP 1 tab by mouth 3 times daily 08/12/16 AMOXICILLIN 40564630690 No Longer Active Liliana Estrada MD PhD Acti ve TESSALON PERLES 100 MG CAP 1 tablet by mouth 3 times daily 11/01 BENZONATATE 04670679691 No Longer Active Liliana Estrada MD PhD Active FLAGYL 500 MG TAB 1 tablet by mouth two times daily 07/11/29 METRONIDAZOLE 85295457759 No Longer Active Nilam Weber Active ZITHROMAX 250 MG TAB 2 po today, then 1 po q days 2-5 AZITHROMYCIN 52492770916 No Longer Active Arie Casper MD Acti ve VITAMINS 0.8 MG TABS take 1 tab po qday 08/08 [id number] 72298286724 No Longer Active Arie Casper MD Active IBUPROFEN 800 MG TABS take one po Q 8 hours IBU PROFEN 00605208850 No Longer Active Arie Casper MD Active CVS TUSSIN COUGH/COLD CF 5-10-100 MG/5ML LIQD 2 teaspoons ev elidu 4 hours [id number] 78169845214 No Longer Active Blaine Casper MD Active COMTREX COLD/COUGH DAY/NITE MS 5-2-10-325 MG MISC 2 caps deja ry 4 hours [id number]-[id number]-APAP 03645684199 No Longer Active Da vimason Casper MD Active CHLORASEPTIC MAX SORE THROAT 15-10 MG LOZG 1 every 2 hours prn 2 BENZOCAINE-MENTHOL 82712539236 No Longer Active Arie Marcelo Active PREDNISONE 20 MG TAB 2 tabs daily for 3 days, 1 t ab daily for 3 days, 1/2 tab daily for 2 days PREDNISONE 07294192305 No Longer Active Jose Zhong MD Active AZITHROMYCIN 250 MG TABS 2 po qd x 1 day, then 1 po qd x 4 days AZITHROMYCIN 69990726250 No Longer Active Jose Zhong MD Active ZOFRAN ODT 4 MG TBDP 1 po q6hr PRN Nausea ONDAN SETRON 62050890329 No Longer Active Rich Rosales MD Active ZOFRAN 4 MG TABS 1 tablet every 4 hours ONDANSE JERRELL HCL 32604102734 No Longer Active Rich Rosales MD Active MUCINEX 600 MG [id number] Take 1-2 tablets every 12 hours GUAIFENESIN 25199097295 No Longer Active Rich Rosales MD Activ e BACTRIM 400-80 MG TABS take one po BID SULFAMETHOXAZOLE-TRIMETHOPRIM 37348245073 No Longer Active Abelardo HERNANDEZ Active AZITHROMYCIN 500 MG TABS 1 PO q day x 6 days AZ ITHROMYCIN 58908028709 No Longer Active Tin HERNANDEZ Active ZITHROMAX 250 MG TAB 2 po today, then 1 po q days 2-5 AZITHROMYCIN 57164368565 No Longer Active Arie Casper MD Acti ve ZITHROMAX 250 MG TAB 2 po today, then 1 po q days 2-5 AZITHROMYCIN 21428657716 No Longer Active Arie Casper MD Acti ve AMOXICILLIN 500 MG CAP 1 tab by mouth 3 times daily 09/23/20 AMOXICILLIN 53601705744 No Longer Active Arie Casper MD Acti ve BACTRIM DS 800-160 MG TAB 1 tab by mouth twice daily 2 TRIMETHOPRIM-SULFAMETHOXAZOLE 91276791498 No Longer Active Arie Casper MD Active AMOXICILLIN 500 MG TABS take 1 tab po TID AMOXI CILLIN 54307803131 No Longer Active Arie Casper MD Active BACTRIM DS 800-160 MG TAB 1 tab by mouth twice daily 2 BACTRIM DS 800-160 MG TAB 552636 TRIMETHOPRIM-SULFAMETHOXAZOLE Inac tive MUCINEX 600 MG [id number] Take 1-2 tablets every 12 hours MUCINEX 600 MG [id number]-VVF GUAIFENESIN Inactive ZOFRAN 4 MG TABS 1 tablet every 4 hours ZOFRAN 4 MG TABS 023273 ONDANSETRON HCL Inactive ZOFRAN ODT 4 MG TBDP 1 po q6hr PRN Nausea ZOFRAN ODT 4 MG TBDP 304347 ONDANSETRON Inactive CHLORASEPTIC MAX SORE THROAT 15-10 MG LOZG 1 every 2 hours prn 2 CHLORASEPTIC MAX SORE THROAT 15-10 MG LOZG BENZO ARINA-MENTHOL Inactive COMTREX COLD/COUGH DAY/NITE MS 5-2-10-325 MG MISC 2 caps deja ry 4 hours COMTREX COLD/COUGH DAY/NITE MS 5-2-10-325 MG MIS C [id number]-APAP Inactive CVS TUSSIN COUGH/COLD CF 5-10-100 MG/5ML LIQD 2 teaspoons ev eliud 4 hours CVS TUSSIN COUGH/COLD CF 5-10-100 MG/5ML LIQD [id number]-DS Inactive IBUPROFEN 800 MG TABS take one po Q 8 hours IBUPROFEN 800 MG TABS 101508 IBUPROFEN Inactive VITAMINS 0.8 MG TABS take 1 tab po qday 08/08 VITAMINS 0.8 MG TABS [id number]-ION-AD-FA Inactive TESSALON PERLES 100 MG CAP 1 tablet by mouth 3 times daily 11/01 TESSALON PERLES 100 MG CAP 609954 BENZONATATE Inact zaid AMOXICILLIN 500 MG CAP 1 tab by mouth 3 times daily 08/12/16 AMOXICILLIN 500 MG CAP 978706 AMOXICILLIN Inactive GUAIFENESIN-CODEINE 100-10 MG/5ML ORAL SYRP 2 tsp every 6 hours prn GUAIFENESIN-CODEINE 100-10 MG/5ML ORAL SYRP 789736 GUAIFENESIN-CODEINE Inactive VICKS DAYQUIL SEVERE COLD/FLU TABS 1 tab every 6 hours prn 12/10 VICKS DAYQUIL SEVERE COLD/FLU TABS PHENYLEPHRINE -DM-GG-APAP TABS Inactive BACTRIM DS 800-160 MG TABS 1 twice a day BACTRIM DS 800- 160 MG TABS 523624 SULFAMETHOXAZOLE-TRIMETHOPRIM Inactive PROMETHAZINE HCL 25 MG TABS 1 four times a day as needed for vomiting PROMETHAZINE HCL 25 MG TABS 412133 PROMETHAZINE HCL Inactive ZYRTEC ALLERGY 10 MG CAPS 1 po qd ZY RTEC ALLERGY 10 MG CAPS CETIRIZINE HCL Inactive MACROBID 100 MG CAP 1 cap by mouth twice daily MACROBID 100 MG CAP 8815133 NITROFURANTOIN MONOHYD MACRO Inactive LOMOTIL 2.5-0.025 MG TABS 1 to 2 four times a day as needed for diarrhea LOMOTIL 2.5-0.025 MG TABS 0485348 DIPHENOXYLATE-A TROPINE Inactive CYCLOBENZAPRINE HCL 10 MG TABS 1/2 - 1 tablet by mouth three times daily as needed for muscle spasm/pain CYCLOBENZAP RINE HCL 10 MG TABS 375574 CYCLOBENZAPRINE HCL Inactive AMOXICILLIN 500 MG TABS 2 tabs twice a day for 10 days AMOXICILLIN 500 MG TABS 434482 AMOXICILLIN Inactive LOMOTIL 2.5-0.025 MG TAB 1 to 2 four times a day as needed f or diarrhea LOMOTIL 2.5-0.025 MG TAB 2900461 DIPHENOXYLATE-AT ROPINE Inactive ZOFRAN 4 MG ORAL TABS 1 TAB PO Q 6 HRS PRN NAUSEA 2014 ZOFRAN 4 MG ORAL TABS 704643 ONDANSETRON HCL Inactive CITRATE OF MAGNESIA ORAL SOLN 1 bottle today for constipation 20 07/10/15 CITRATE OF MAGNESIA ORAL SOLN 0414868 MAGNESIUM CITRATE Inactive PROMETHAZINE HCL 12.5 MG TABS 1 tablet by mouth every 6 hours as needed for nausea/vomiting PROMETHAZINE HCL 12.5 MG TABS 453939 PROMETHAZINE HCL Inactive PREDNISONE 20 MG TAB 1 tablet twice daily for 2 d ays, then 1 tablet once daily for 2 days PREDNISONE 20 MG TAB 973410 PREDNISONE Inac tive AMOXICILLIN 500 MG TABS take 1 tab po TID AMOXICILLIN 500 MG TABS 183673 AMOXICILLIN Inactive AMOXICILLIN 500 MG CAP 1 tab by mouth 3 times daily 09/23/20 AMOXICILLIN 500 MG CAP 101998 AMOXICILLIN Inactive ZITHROMAX 250 MG TAB 2 po today, then 1 po q days 2-5 ZITHROMAX 250 MG TAB 5345773 AZITHROMYCIN Inactive ZITHROMAX 250 MG TAB 2 po today, then 1 po q days 2-5 ZITHROMAX 250 MG TAB 9812452 AZITHROMYCIN Inactive AZITHROMYCIN 500 MG TABS 1 PO q day x 6 days 3 AZITHROMYCIN 500 MG TABS 3535283 AZITHROMYCIN Inactive BACTRIM 400-80 MG TABS take one po BID BA CTRIM 400-80 MG TABS 741068 SULFAMETHOXAZOLE-TRIMETHOPRIM Inactive AZITHROMYCIN 250 MG TABS 2 po qd x 1 day, then 1 po qd x 4 days AZITHROMYCIN 250 MG TABS 0758195 AZITHROMYCIN Inactiv e PREDNISONE 20 MG TAB 2 tabs daily for 3 days, 1 t ab daily for 3 days, 1/2 tab daily for 2 days PREDNISONE 20 MG TAB 286235 PREDNISON E Inactive ZITHROMAX 250 MG TAB 2 po today, then 1 po q days 2-5 ZITHROMAX 250 MG TAB 2594154 AZITHROMYCIN Inactive FLAGYL 500 MG TAB 1 tablet by mouth two times daily 07/11/29 FLAGYL 500 MG TAB 730949 METRONIDAZOLE Inactive AUGMENTIN 875-125 MG TAB 1 tab by mouth twice daily with food 20 08/12/16 AUGMENTIN 875-125 MG TAB 312720 AMOXICILLIN-POT CLAVULA ANGELO Inactive NAPROXEN 500 MG TAB one tab PO BID NAPROXEN 500 MG TAB 009040 NAPROXEN Inactive PREDNISONE 20 MG TAB 2 tabs daily for 3 days, 1 t ab daily for 3 days, 1/2 tab daily for 2 days PREDNISONE 20 MG TAB 736786 PREDNISON E Inactive AZITHROMYCIN 250 MG TABS 2 po qd x 1 day, then 1 po qd x 4 days AZITHROMYCIN 250 MG TABS 3706428 AZITHROMYCIN Inactiv e PREDNISONE 20 MG TAB 2 tabs daily for 3 days, 1 t ab daily for 3 days, 1/2 tab daily for 2 days PREDNISONE 20 MG TAB 941677 PREDNISON E Inactive Advance Directives Directive Description [...] - 3141-9 163 [lb_av] Weigh t Measured Diagnostic Results Date [...] Panel - Chemistry sodium, serum 136 mmol/L 144-793 5073/04/26 carbon dioxide, venous blood 29.9 mmol/L 21.0-32 [...] - Chem istry sodium, serum 139 mmol/L 196-475 0033/12/15 carbon dioxide, venous blood 30.2 mmol/L 21.0-32 [...] Trace Negati ve bilirubin, urine Negative Negative urine color Yellow Colorless;Lightyellow;St raw;Yellow appearance, urine Clear Clear specific gravity, urine 1.020 1.000-1.030 pH, urine, semiquantitative 6.5 5.0-8.5 [facility]/MICRO, AUTO - Chemistry [...] Negative Encounters Code Encounter Date Provider Facility CPT-67276 Level 3 Est. Patient 09:12:56 CDT Arie mcqueen MD [facility]-84961 Level 3 Est. Patient 16:40:54 CDT Jose Zhong MD [facility]-90162 Level 2 Est. Patient 13:01:13 CDT Steve VICE PRESIDENT COMPLIANCE [facility]-60870 Level 3 Est. Patient 11:55:30 SENIOR SYSTEMS SOFTWARE ENGINEER Jono black DO [facility]-21733 Level 3 Est. Patient 09:52:36 SENIOR SYSTEMS SOFTWARE ENGINEER Steve VICE PRESIDENT COMPLIANCE [facility]-90862 Level 3 Est. Patient 16:25:33 SENIOR SYSTEMS SOFTWARE ENGINEER Rich Rosales MD [facility]-74461 Level 3 Est. Patient 20:33:55 CDT Arie mcqueen MD [facility]-02877 Level 3 Est. Patient 14:18:20 CDT Rich Rosales MD [facility] CPT-76375 Level 4 Est. Patient 09:34:31 CDT Arie mcqueen MD [facility]-06646 Level 3 Est. Patient 09:08:55 SENIOR SYSTEMS SOFTWARE ENGINEER Liliana vincent MD PhD [facility]08109 Level 3 Est. Patient 16:44:07 SENIOR SYSTEMS SOFTWARE ENGINEER Arie mcqueen MD [facility]-33780 Level 3 Est. Patient 10:44:27 CDT Arie mcqueen MD [facility]-04660 Level 3 Est. Patient 08:55:41 CDT Jose Zhong MD [facility] CPT-64792 Level 3 Est. Patient 18:37:31 CDT Liliana vincent MD PhD [facility] CPT-37614 Level 3 Est. Patient 14:28:23 CDT Abelardo HERNANDEZ [facility] CPT-34207 Level 3 Est. Patient 15:18:13 SENIOR SYSTEMS SOFTWARE ENGINEER Arie mcqueen MD [facility] CPT-32083 Level 3 Est. Patient 10:11:29 SENIOR SYSTEMS SOFTWARE ENGINEER Arie mcqueen MD [facility] CPT-99745 Level 3 Est. Patient 10:55:57 SENIOR SYSTEMS SOFTWARE ENGINEER Jono black DO [facility] CPT-24281 Level 3 Est. Patient 17:29:05 CDT Arie mcqueen MD [facility] Procedures Code Procedure Name Date Entry Date Standard Desc ription CPT-32646 Abd compl w upright 09:07:26 SENIOR SYSTEMS SOFTWARE ENGINEER CPT-72200 Ear Wash 16:12:47 SENIOR SYSTEMS SOFTWARE ENGINEER CPT-OV Office Visit 11:12:01 CDT CPT-OV Office Visit 15:30:23 CDT CPT-26165 Sono pelvis non OB uterus ovaries cervix 15:50:44 CDT CPT-89664 Hand comp min 3V 16:42:32 CDT CPT-31181 Abd compl w upright 12:17:01 CDT CPT-18989 Nexplanon Placement 15:07:39 SENIOR SYSTEMS SOFTWARE ENGINEER CPT-51140 Removal of IUD 15:07:39 SENIOR SYSTEMS SOFTWARE ENGINEER CPT-70391 TB Tubersol 12:09:32 CDT CPT-73132 TB Tubersol 13:55:43 CDT
--- OUTSIDE RECORDS SUMMARY | 2020-03-03 08:12 | XMS REPORT | Clinical Summary ---
Author Author Admin, Diamante Marcelo Organization [facility] Address Unknown Phone Unavailable Allergies, Adverse Reactions, [...] Roseann Crawford Accidents caused by hypodermic needle BREAST CANCER ICD-V16.3 Inactive Jose Marcelo FH [...] TAB one tab PO BID NAPROXEN 332 73528498 No Longer Active Myrna Roberto MD Active LOMOTIL 2.5-0.025 MG TABS 1 to 2 four times a day as needed for diarrhea DIPHENOXYLATE-ATROPINE 17082648259 Active Rich mcintosh MD Active PROMETHAZINE HCL 25 MG TABS 1 four times a day as needed for vomiting PROMETHAZINE HCL 01613381042 Active Rich Rosales MD Active BACTRIM DS 800-160 MG TABS 1 twice a day SULFAMETHOXAZOLE-TRIMETHOPRIM 82177469620 Active Rich Rosales MD Active AUGMENTIN 875-125 MG TAB 1 tab by mouth twice daily with food 20 08/12/16 AMOXICILLIN-POT CLAVULANATE 73869562360 No Longer Active Liliana Estrada MD PhD Active CYCLOBENZAPRINE HCL 10 MG TABS 1/2 - 1 tablet by mouth three times daily as needed for muscle spasm/pain CYCLOBENZAPRINE HCL 76537 657369 Active Liliana Estrada MD PhD Active GUAIFENESIN-CODEINE 100-10 MG/5ML ORAL SYRP 2 tsp every 6 hours prn GUAIFENESIN-CODEINE 67245330277 Active Liliana Estrada MD PhD Active VICKS DAYQUIL SEVERE COLD/FLU TABS 1 tab every 6 hours prn [id number]-KK-BD-APAP TABS 75841153324 Active Liliana Estrada MD PhD Active AMOXICILLIN 500 MG CAP 1 tab by mouth 3 times daily 08/12/16 AMOXICILLIN 37765372956 No Longer Active Liliana Estrada MD PhD Acti ve TESSALON PERLES 100 MG CAP 1 tablet by mouth 3 times daily 11/01 BENZONATATE 98519639980 No Longer Active Liliana Estrada MD PhD Active FLAGYL 500 MG TAB 1 tablet by mouth two times daily 07/11/29 METRONIDAZOLE 20195467870 No Longer Active Nilam Weber Active ZITHROMAX 250 MG TAB 2 po today, then 1 po q days 2-5 AZITHROMYCIN 50908269617 No Longer Active Arie Casper MD Acti ve VITAMINS 0.8 MG TABS take 1 tab po qday 08/08 [id number]-XAX-BU-FA 34565252806 No Longer Active Arie Casper MD Active IBUPROFEN 800 MG TABS take one po Q 8 hours IBU PROFEN 87316534519 No Longer Active Arie Casper MD Active CVS TUSSIN COUGH/COLD CF 5-10-100 MG/5ML LIQD 2 teaspoons ev eliud 4 hours MVQUNKEFBDDLW-NN-UX 11230285865 No Longer Active Blaine Casper MD Active COMTREX COLD/COUGH DAY/NITE MS 5-2-10-325 MG MISC 2 caps deja ry 4 hours ZNTOWZYUX-IQN-VN-APAP 78632766448 No Longer Active Landon Casper MD Active CHLORASEPTIC MAX SORE THROAT 15-10 MG LOZG 1 every 2 hours prn 2 BENZOCAINE-MENTHOL 24826484375 No Longer Active Arie Marcelo Active PREDNISONE 20 MG TAB 2 tabs daily for 3 days, 1 t ab daily for 3 days, 1/2 tab daily for 2 days PREDNISONE 13816149820 No Longer Active Jose Zhong MD Active AZITHROMYCIN 250 MG TABS 2 po qd x 1 day, then 1 po qd x 4 days AZITHROMYCIN 96158654579 No Longer Active Jose Zhong MD Active ZOFRAN ODT 4 MG TBDP 1 po q6hr PRN Nausea ONDAN SETRON 57022656381 No Longer Active Rich Rosales MD Active ZOFRAN 4 MG TABS 1 tablet every 4 hours ONDANSE JERRELL HCL 82398518503 No Longer Active Rich Rosales MD Active MUCINEX 600 MG [id number]-KPU Take 1-2 tablets every 12 hours GUAIFENESIN 35994631561 No Longer Active Rich Rosales MD Activ e BACTRIM 400-80 MG TABS take one po BID SULFAMETHOXAZOLE-TRIMETHOPRIM 50077688546 No Longer Active Abelardo HERNANDEZ Active AZITHROMYCIN 500 MG TABS 1 PO q day x 6 days AZ ITHROMYCIN 06033465792 No Longer Active Tin HERNANDEZ Active ZITHROMAX 250 MG TAB 2 po today, then 1 po q days 2-5 AZITHROMYCIN 49321991643 No Longer Active Arie Casper MD Acti ve ZITHROMAX 250 MG TAB 2 po today, then 1 po q days 2-5 AZITHROMYCIN 06553733087 No Longer Active Arie Casper MD Acti ve AMOXICILLIN 500 MG CAP 1 tab by mouth 3 times daily 09/23/20 AMOXICILLIN 95220729187 No Longer Active Arie Casper MD Acti ve BACTRIM DS 800-160 MG TAB 1 tab by mouth twice daily 2 TRIMETHOPRIM-SULFAMETHOXAZOLE 20809044574 No Longer Active Arie Casper MD Active AMOXICILLIN 500 MG TABS take 1 tab po TID AMOXI CILLIN 69577079763 No Longer Active Arie Casper MD Active BACTRIM DS 800-160 MG TAB 1 tab by mouth twice daily 2 BACTRIM DS 800-160 MG TAB TRIMETHOPRIM-SULFAMETHOXAZOLE Inac tive MUCINEX 600 MG [id number]-GYK Take 1-2 tablets every 12 hours MUCINEX 600 MG [id number]-KRZ GUAIFENESIN Inactive ZOFRAN 4 MG TABS 1 tablet every 4 hours ZOFRAN 4 MG TABS 576898 ONDANSETRON HCL Inactive ZOFRAN ODT 4 MG TBDP 1 po q6hr PRN Nausea ZOFRAN ODT 4 MG TBDP 094635 ONDANSETRON Inactive CHLORASEPTIC MAX SORE THROAT 15-10 MG LOZG 1 every 2 hours prn 2 /04/30 CHLORASEPTIC MAX SORE THROAT 15-10 MG LOZG BENZO ARINA-MENTHOL Inactive COMTREX COLD/COUGH DAY/NITE MS 5-2-10-325 MG MISC 2 caps deja ry 4 hours COMTREX COLD/COUGH DAY/NITE MS 5-2-10-325 MG MIS C ERCJAQHBZ-VIA-AU-APAP Inactive [facility]S TUSSIN COUGH/COLD CF 5-10-100 MG/5ML LIQD 2 teaspoons ev eliud 4 hours CVS TUSSIN COUGH/COLD CF 5-10-100 MG/5ML LIQD [id number] Inactive IBUPROFEN 800 MG TABS take one po Q 8 hours IBUPROFEN 800 MG TABS 778727 IBUPROFEN Inactive VITAMINS 0.8 MG TABS take 1 tab po qday 08/08 VITAMINS 0.8 MG TABS JYFWEGWA-EMQ-GP-FA Inactive TESSALON PERLES 100 MG CAP 1 tablet by mouth 3 times daily 11/01 TESSALON PERLES 100 MG CAP 654766 BENZONATATE Inact zaid AMOXICILLIN 500 MG CAP 1 tab by mouth 3 times daily 08/12/16 AMOXICILLIN 500 MG CAP 778508 AMOXICILLIN Inactive AMOXICILLIN 500 MG TABS take 1 tab po TID AMOXICILLIN 500 MG TABS 200379 AMOXICILLIN Inactive AMOXICILLIN 500 MG CAP 1 tab by mouth 3 times daily 09/23/20 AMOXICILLIN 500 MG CAP 529173 AMOXICILLIN Inactive ZITHROMAX 250 MG TAB 2 po today, then 1 po q days 2-5 ZITHROMAX 250 MG TAB 3245461 AZITHROMYCIN Inactive ZITHROMAX 250 MG TAB 2 po today, then 1 po q days 2-5 ZITHROMAX 250 MG TAB 0093465 AZITHROMYCIN Inactive AZITHROMYCIN 500 MG TABS 1 PO q day x 6 days 3 AZITHROMYCIN 500 MG TABS 3200633 AZITHROMYCIN Inactive BACTRIM 400-80 MG TABS take one po BID BA CTRIM 400-80 MG TABS 638673 SULFAMETHOXAZOLE-TRIMETHOPRIM Inactive AZITHROMYCIN 250 MG TABS 2 po qd x 1 day, then 1 po qd x 4 days AZITHROMYCIN 250 MG TABS 2176846 AZITHROMYCIN Inactiv e PREDNISONE 20 MG TAB 2 tabs daily for 3 days, 1 t ab daily for 3 days, 1/2 tab daily for 2 days PREDNISONE 20 MG TAB 334677 PREDNISON E Inactive ZITHROMAX 250 MG TAB 2 po today, then 1 po q days 2-5 ZITHROMAX 250 MG TAB 3895114 AZITHROMYCIN Inactive FLAGYL 500 MG TAB 1 tablet by mouth two times daily 07/11/29 FLAGYL 500 MG TAB 273933 METRONIDAZOLE Inactive AUGMENTIN 875-125 MG TAB 1 tab by mouth twice daily with food 08/12/16 AUGMENTIN 875-125 MG TAB 979951 AMOXICILLIN-POT CLAVULA ANGELO Inactive NAPROXEN 500 MG TAB one tab PO BID NAPROXEN 500 MG TAB 620267 NAPROXEN Inactive Advance Directives Directive Description Start [...] 214 10^3/MM^3 10*3/mm3 142-424 Lab Report: Chlamydia/GC APTIMA/[id number] - Lab chlamydia DNA probe NOT DETECTED NOT DETECTED Lab Report: Chlamydia/GC [facility]TIMA/45065 - Microbiology Neisseria gonorrhoeae DNA probe NOT DETECTED NO T DETECTED Lab Report: HIV-1/2 Agn/Darcy/47991, HEPAT ITIS PANEL, ACUTE W/REFLE - Chemistry [...] 5.0-8.5 Encounters Code Encounter Date Provider Facility CPT-18218 Level 3 Est. Patient 14:18:20 CDT Rich Rosales MD [facility] CPT-01699 Level 4 Est. Patient 09:34:31 CDT Arie mcqueen MD [facility] CPT-88813 Level 3 Est. Patient 09:08:55 COLD TYPE COMPOSING 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 Liliana vincent MD PhD [facility] CPT-20822 Level 3 Est. Patient 16:44:07 COLD TYPE COMPOSING 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 Arie mcqueen MD [facility] CPT-82854 Level 3 Est. Patient 10:44:27 CDT Arie mcqueen MD [facility] CPT-70455 Level 3 Est. Patient 08:55:41 CDT Jose Zhong MD [facility] CPT-76137 Level 3 Est. Patient 18:37:31 CDT Liliana vincent MD PhD [facility] CPT-12663 Level 3 Est. Patient 14:28:23 CDT Abelardo HERNANDEZ [facility] CPT-17318 Level 3 Est. Patient 15:18:13 COLD TYPE COMPOSING 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 Arie mcqueen MD [facility] CPT-17437 Level 3 Est. Patient 10:11:29 COLD TYPE COMPOSING 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 Arie mcqueen MD [facility] CPT-25882 Level 3 Est. Patient 10:55:57 COLD TYPE COMPOSING 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 Jono black DO [facility] CPT-14590 Level 3 Est. Patient 17:29:05 CDT Arie mcqueen MD [facility] Procedures Code Procedure Name Date Entry Date Standard Desc ription CPT-OV Office Visit 15:30:23 CDT CPT-71936 Sono pelvis non OB uterus ovaries cervix 15:50:44 CDT CPT-35872 Hand comp min 3V 16:42:32 CDT CPT-56094 Abd compl w upright 12:17:01 CDT CPT-86359 Nexplanon Placement 15:07:39 COLD TYPE COMPOSING 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 CPT-89406 Removal of IUD 15:07:39 COLD TYPE COMPOSING 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 CPT-83432 TB Tubersol 12:09:32 CDT CPT-45815 TB Tubersol 13:55:43 CDT
--- OUTSIDE RECORDS SUMMARY | 2020-03-03 08:12 | XMS REPORT | Clinical Summary ---
Author Author Admin, Diamante Marcelo Organization [employer] Address Unknown Phone Unavailable Allergies, Adverse Reactions, [...] cute pharyngitis Nausea 787.02 Active Brii Larson DIRECTOR OPERATIONS Nausea alone URI 465.9 Active Jono Gagnon DO Acu te upper respiratory infections of unspecified site Allergic rhinitis 477.9 Active Brii Christianson PRN Allergic rhinitis, cause unspecified Abdominal pain, right lower quadrant 789.03 Active Jose Zhong MD Abdominal pain, right lower quadrant Urinary frequency 788.41 Inactive Roseann Crawford Urinary frequency Urinary frequency 788.41 Active 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, [employer] Urinary frequency Sinusitis - acute 461.9 Active Brii Christianson PRN Acute sinusitis, unspecified Anxiety with depression 300.4 Active Glenn Larson DIRECTOR OPERATIONS Dysthymic disorder URI 465.9 Active Jono Gagnon [...] IMPL right arm subcutaneously ETONOGE STREL IMPL 92982341839 No Longer Active Brii Larson APRN Active TUSSIONEX PENNKINETIC ER 10-8 MG/5ML LQCR 5ml po q12hr PRN Cough HYDROCOD POLST-CHLORPHEN POLST 97037549992 No Longer Active Brii Larson APRN Active CETIRIZINE HCL 10 MG ORAL TABS 1 po qd PRN Allergies 2 CETIRIZINE HCL 81007680295 No Longer Active Brii Larson APRN Ac tive PREDNISONE 20 MG TAB 2 tabs daily for 3 days, 1 t ab daily for 3 days, 1/2 tab daily for 2 days PREDNISONE 39921220698 No Longer Active Arie Casper MD Active LOMOTIL 2.5-0.025 MG TAB 1 tab po four times a day as needed for diarrhea DIPHENOXYLATE-ATROPINE 58644204408 No Longer Active Mason Casper MD Active ZOLOFT 50 MG TAB 1 tablet by mouth daily SERTRA LINE HCL 93698516120 No Longer Active Arie Casper MD Active NAPROXEN 500 MG TAB Take 1 tab BID NAPROXEN 332 96316993 No Longer Active Arie Casper MD Active CEFDINIR 300 MG CAPS 1 po BID x 10 days CEFDINI R 98144700383 No Longer Active Brii Larson APRN Active PREDNISONE 20 MG TAB 1 tablet daily for airway inflammation 2015 PREDNISONE 58001385189 No Longer Active Brii Larson APRN Active CEFDINIR 300 MG CAPS 1 po BID x 10 days CEFDINI R 70208674228 No Longer Active Jono Gagnon DO Active FLONASE 50 MCG/ACT SUSP 1 spray each nostril twice d aily for allergies and runny nose until gone FLUTICASONE PROPIONATE No Longe r Active Jono Gagnon DO Active ALPRAZOLAM 0.25 MG TAB 1 tablet by mouth every 8 hours as ne eded for stress ALPRAZOLAM 06486872889 No Longer Active Jono Gagnon DO Active ZITHROMAX Z-EMIL 250 MG TABS 2 today, then 1 daily for 4 days 201 03/31/18 AZITHROMYCIN 51433045524 No Longer Active Arie Casper MD Active PROTONIX 40 MG ORAL TBEC 1 po q a.m. PANTOPRAZO LE SODIUM 43530764800 Active Arie Casper MD Active PREDNISONE 20 MG TAB 2 tabs daily for 3 days, 1 t ab daily for 3 days, 1/2 tab daily for 2 days PREDNISONE 42773041932 No Longer Active Brii Larson APRN Active PREDNISONE 20 MG TAB 1 tablet twice daily for 2 d ays, then 1 tablet once daily for 2 days PREDNISONE 08663983583 No Longer Active Brii Larson APRN Active PROMETHAZINE HCL 12.5 MG TABS 1 tablet by mouth every 6 hours as needed for nausea/vomiting PROMETHAZINE HCL 00560525821 No Longe r Active Jono Gagnon DO Active CITRATE OF MAGNESIA ORAL SOLN 1 bottle today for constipation 20 07/10/15 MAGNESIUM CITRATE 24405472462 No Longer Active Jono Gagnon DO Active ZOFRAN 4 MG ORAL TABS 1 TAB PO Q 6 HRS PRN NAUSEA 2014 ONDANSETRON HCL 20423734745 No Longer Active Brii Larson APRN A ctive LOMOTIL 2.5-0.025 MG TAB 1 to 2 four times a day as needed f or diarrhea DIPHENOXYLATE-ATROPINE 55699932410 No Longer Active January Larson APRN Active AMOXICILLIN 500 MG TABS 2 tabs twice a day for 10 days AMOXICILLIN 47186565832 No Longer Active Brii Larson APRN Acti ve CYCLOBENZAPRINE HCL 10 MG TABS 1/2 - 1 tablet by mouth three times daily as needed for muscle spasm/pain CYCLOBENZAPRINE HCL 82781382897 No Longer Active Arie Casper MD Active LOMOTIL 2.5-0.025 MG TABS 1 to 2 four times a day as needed for diarrhea DIPHENOXYLATE-ATROPINE 54631268959 No Longer Active Mason Casper MD Active MACROBID 100 MG CAP 1 cap by mouth twice daily NITROFURANTOIN MONOHYD MACRO 90765611998 No Longer Active Arie Casper MD Active ZYRTEC ALLERGY 10 MG CAPS 1 po qd CETIRIZINE HCL 69201664495 No Longer Active Arie Casper MD Active AZITHROMYCIN 250 MG TABS 2 po qd x 1 day, then 1 po qd x 4 days AZITHROMYCIN 54199966309 No Longer Active Jillina Frazell DIRECTOR OPERATIONS Active PREDNISONE 20 MG TAB 2 tabs daily for 3 days, 1 t ab daily for 3 days, 1/2 tab daily for 2 days PREDNISONE 74140451128 No Longer Active Jillina Frazell DIRECTOR OPERATIONS Active PROMETHAZINE HCL 25 MG TABS 1 four times a day as needed for vomiting PROMETHAZINE HCL 55149144179 No Longer Active Myrna Roberto MD Active BACTRIM DS 800-160 MG TABS 1 twice a day SULFAMETHOXAZOLE-TRIMETHOPRIM 29212945650 No Longer Active Myrna Roberto MD Active VICKS DAYQUIL SEVERE COLD/FLU TABS 1 tab every 6 hours prn 12/10 [id number] TABS 65052895655 No Longer Active Myrna leigh MD Active GUAIFENESIN-CODEINE 100-10 MG/5ML ORAL SYRP 2 tsp every 6 hours prn GUAIFENESIN-CODEINE 56616100283 No Longer Active Myrna Roberto MD Active NAPROXEN 500 MG TAB one tab PO BID NAPROXEN 332 04140505 No Longer Active Myrna Roberto MD Active AUGMENTIN 875-125 MG TAB 1 tab by mouth twice daily with food 20 08/12/16 AMOXICILLIN-POT CLAVULANATE 40257939919 No Longer Active Liliana Estrada MD [facility] Active AMOXICILLIN 500 MG CAP 1 tab by mouth 3 times daily 08/12/16 AMOXICILLIN 86291289628 No Longer Active Liliana Estrada MD PhD Acti ve TESSALON PERLES 100 MG CAP 1 tablet by mouth 3 times daily 11/01 BENZONATATE 38703145435 No Longer Active Liliana Estrada MD PhD Active FLAGYL 500 MG TAB 1 tablet by mouth two times daily 20 07/11/29 METRONIDAZOLE 97271592150 No Longer Active Nilam Weber Active ZITHROMAX 250 MG TAB 2 po today, then 1 po q days 2-5 AZITHROMYCIN 84744998543 No Longer Active Arie Casper MD Acti ve VITAMINS 0.8 MG TABS take 1 tab po qday 08/08 [id number] 87704891060 No Longer Active Arie Casper MD Active IBUPROFEN 800 MG TABS take one po Q 8 hours IBU PROFEN 24934044583 No Longer Active Arie Casper MD Active [facility] TUSSIN COUGH/COLD CF 5-10-100 MG/5ML LIQD 2 teaspoons ev eliud 4 hours [id number] 21873780122 No Longer Active Blaine Casper MD Active COMTREX COLD/COUGH DAY/NITE MS 5-2-10-325 MG MISC 2 caps deja ry 4 hours [id number] 13258442773 No Longer Active Da vimason Casper MD Active CHLORASEPTIC MAX SORE THROAT 15-10 MG LOZG 1 every 2 hours prn 2 BENZOCAINE-MENTHOL 39443432327 No Longer Active Arie Marcelo Active PREDNISONE 20 MG TAB 2 tabs daily for 3 days, 1 t ab daily for 3 days, 1/2 tab daily for 2 days PREDNISONE 21790901874 No Longer Active Jose Zhong MD Active AZITHROMYCIN 250 MG TABS 2 po qd x 1 day, then 1 po qd x 4 days AZITHROMYCIN 82051235017 No Longer Active Jose Zhong MD Active ZOFRAN ODT 4 MG TBDP 1 po q6hr PRN Nausea ONDAN SETRON 88543909847 No Longer Active Rich Rosales MD Active ZOFRAN 4 MG TABS 1 tablet every 4 hours ONDANSE JERRELL HCL 29146271642 No Longer Active Rich Rosales MD Active MUCINEX 600 MG [id number]-[id number] Take 1-2 tablets every 12 hours GUAIFENESIN 21673108987 No Longer Active Rich Rosales MD Activ e BACTRIM 400-80 MG TABS take one po BID SULFAMETHOXAZOLE-TRIMETHOPRIM 65542666429 No Longer Active Abelardo HERNANDEZ Active AZITHROMYCIN 500 MG TABS 1 PO q day x 6 days AZ ITHROMYCIN 74173079765 No Longer Active Tin HERNANDEZ Active ZITHROMAX 250 MG TAB 2 po today, then 1 po q days 2-5 AZITHROMYCIN 71252722354 No Longer Active Arie Casper MD Acti ve ZITHROMAX 250 MG TAB 2 po today, then 1 po q days 2-5 AZITHROMYCIN 19003218226 No Longer Active Arie Casper MD Acti ve AMOXICILLIN 500 MG CAP 1 tab by mouth 3 times daily 20 09/23/20 AMOXICILLIN 07843993089 No Longer Active Arie Casper MD Acti ve BACTRIM DS 800-160 MG TAB 1 tab by mouth twice daily 2 TRIMETHOPRIM-SULFAMETHOXAZOLE 82134395886 No Longer Active Arie Casper MD Active AMOXICILLIN 500 MG TABS take 1 tab po TID AMOXI CILLIN 52387364254 No Longer Active Arie Casper MD Active BACTRIM DS 800-160 MG TAB 1 tab by mouth twice daily 2 BACTRIM DS 800-160 MG TAB 661319 TRIMETHOPRIM-SULFAMETHOXAZOLE Inac tive MUCINEX 600 MG [id number] Take 1-2 tablets every 12 hours MUCINEX 600 MG [id number] GUAIFENESIN Inactive ZOFRAN 4 MG TABS 1 tablet every 4 hours ZOFRAN 4 MG TABS 925525 ONDANSETRON HCL Inactive ZOFRAN ODT 4 MG TBDP 1 po q6hr PRN Nausea ZOFRAN ODT 4 MG TBDP 866921 ONDANSETRON Inactive CHLORASEPTIC MAX SORE THROAT 15-10 MG LOZG 1 every 2 hours prn 2 CHLORASEPTIC MAX SORE THROAT 15-10 MG LOZG BENZO ARINA-MENTHOL Inactive COMTREX COLD/COUGH DAY/NITE MS 5-2-10-325 MG MISC 2 caps deja ry 4 hours COMTREX COLD/COUGH DAY/NITE MS 5-2-10-325 MG MIS C [id number] Inactive [facility] TUSSIN COUGH/COLD CF 5-10-100 MG/5ML LIQD 2 teaspoons ev eliud 4 hours [facility] TUSSIN COUGH/COLD CF 5-10-100 MG/5ML LIQD [id number] Inactive IBUPROFEN 800 MG TABS take one po Q 8 hours IBUPROFEN 800 MG TABS IBUPROFEN Inactive VITAMINS 0.8 MG TABS take 1 tab po qday 08/08 VITAMINS 0.8 MG TABS [id number] Inactive TESSALON PERLES 100 MG CAP 1 tablet by mouth 3 times daily 11/01 TESSALON PERLES 100 MG CAP 835579 BENZONATATE Inact zaid AMOXICILLIN 500 MG CAP 1 tab by mouth 3 times daily 08/12/16 AMOXICILLIN 500 MG CAP 896382 AMOXICILLIN Inactive GUAIFENESIN-CODEINE 100-10 MG/5ML ORAL SYRP 2 tsp every 6 hours prn GUAIFENESIN-CODEINE 100-10 MG/5ML ORAL SYRP 763654 GUAIFENESIN-CODEINE Inactive VICKS DAYQUIL SEVERE COLD/FLU TABS 1 tab every 6 hours prn 12/10 VICKS DAYQUIL SEVERE COLD/FLU TABS PHENYLEPHRINE -DM-GG-APAP TABS Inactive BACTRIM DS 800-160 MG TABS 1 twice a day BACTRIM DS 800- 160 MG TABS 307651 SULFAMETHOXAZOLE-TRIMETHOPRIM Inactive PROMETHAZINE HCL 25 MG TABS 1 four times a day as needed for vomiting PROMETHAZINE HCL 25 MG TABS 281799 PROMETHAZINE HCL Inactive ZYRTEC ALLERGY 10 MG CAPS 1 po qd ZY RTEC ALLERGY 10 MG CAPS CETIRIZINE HCL Inactive MACROBID 100 MG CAP 1 cap by mouth twice daily MACROBID 100 MG CAP 6225392 NITROFURANTOIN MONOHYD MACRO Inactive LOMOTIL 2.5-0.025 MG TABS 1 to 2 four times a day as needed for diarrhea LOMOTIL 2.5-0.025 MG TABS 2570501 DIPHENOXYLATE-A TROPINE Inactive CYCLOBENZAPRINE HCL 10 MG TABS 1/2 - 1 tablet by mouth three times daily as needed for muscle spasm/pain CYCLOBENZAP RINE HCL 10 MG TABS 222438 CYCLOBENZAPRINE HCL Inactive AMOXICILLIN 500 MG TABS 2 tabs twice a day for 10 days AMOXICILLIN 500 MG TABS 332612 AMOXICILLIN Inactive LOMOTIL 2.5-0.025 MG TAB 1 to 2 four times a day as needed f or diarrhea LOMOTIL 2.5-0.025 MG TAB 4764952 DIPHENOXYLATE-AT ROPINE Inactive ZOFRAN 4 MG ORAL TABS 1 TAB PO Q 6 HRS PRN NAUSEA 2014 ZOFRAN 4 MG ORAL TABS 294997 ONDANSETRON HCL Inactive CITRATE OF MAGNESIA ORAL SOLN 1 bottle today for constipation 20 07/10/15 CITRATE OF MAGNESIA ORAL SOLN 2408221 MAGNESIUM CITRATE Inactive PROMETHAZINE HCL 12.5 MG TABS 1 tablet by mouth every 6 hours as needed for nausea/vomiting PROMETHAZINE HCL 12.5 MG TABS 459410 PROMETHAZINE HCL Inactive PREDNISONE 20 MG TAB 1 tablet twice daily for 2 d ays, then 1 tablet once daily for 2 days PREDNISONE 20 MG TAB 820643 PREDNISONE Inac tive ALPRAZOLAM 0.25 MG TAB 1 tablet by mouth every 8 hours as ne eded for stress ALPRAZOLAM 0.25 MG TAB 003666 ALPRAZOLAM Inact zaid FLONASE 50 MCG/ACT SUSP 1 spray each nostril twice d aily for allergies and runny nose until gone FLONASE 50 MCG/ACT SUSP 3949455 FLUTICASONE PROPIONATE Inactive PREDNISONE 20 MG TAB 1 tablet daily for airway inflammation 2015 PREDNISONE 20 MG TAB 935871 PREDNISONE Inactive NAPROXEN 500 MG TAB Take 1 tab BID NAPROXEN 500 MG TAB 869442 NAPROXEN Inactive ZOLOFT 50 MG TAB 1 tablet by mouth daily ZOLOFT 50 MG TAB 740608 SERTRALINE HCL Inactive LOMOTIL 2.5-0.025 MG TAB 1 tab po four times a day as needed for diarrhea LOMOTIL 2.5-0.025 MG TAB 4535939 DIPHENOXYLATE-AT ROPINE Inactive CETIRIZINE HCL 10 MG ORAL TABS 1 po qd PRN Allergies 2 CETIRIZINE HCL 10 MG ORAL TABS 4668905 CETIRIZINE HCL Inactive TUSSIONEX PENNKINETIC ER 10-8 MG/5ML LQCR 5ml po q12hr PRN Cough TUSSIONEX PENNKINETIC ER 10-8 MG/5ML LQCR HYDROCOD POLST-CHLORPHEN POLST Inactive NEXPLANON IMPL right arm subcutaneously NEXPLANO N IMPL ETONOGESTREL IMPL Inactive AMOXICILLIN 500 MG TABS take 1 tab po TID AMOXICILLIN 500 MG TABS 920567 AMOXICILLIN Inactive AMOXICILLIN 500 MG CAP 1 tab by mouth 3 times daily 09/23/20 AMOXICILLIN 500 MG CAP 258392 AMOXICILLIN Inactive ZITHROMAX 250 MG TAB 2 po today, then 1 po q days 2-5 ZITHROMAX 250 MG TAB 521267 AZITHROMYCIN Inactive ZITHROMAX 250 MG TAB 2 po today, then 1 po q days 2-5 ZITHROMAX 250 MG TAB 640894 AZITHROMYCIN Inactive AZITHROMYCIN 500 MG TABS 1 PO q day x 6 days 3 AZITHROMYCIN 500 MG TABS 5358717 AZITHROMYCIN Inactive BACTRIM 400-80 MG TABS take one po BID BA CTRIM 400-80 MG TABS 898176 SULFAMETHOXAZOLE-TRIMETHOPRIM Inactive AZITHROMYCIN 250 MG TABS 2 po qd x 1 day, then 1 po qd x 4 days AZITHROMYCIN 250 MG TABS 789966 AZITHROMYCIN Inactiv e PREDNISONE 20 MG TAB 2 tabs daily for 3 days, 1 t ab daily for 3 days, 1/2 tab daily for 2 days PREDNISONE 20 MG TAB 743472 PREDNISON E Inactive ZITHROMAX 250 MG TAB 2 po today, then 1 po q days 2-5 ZITHROMAX 250 MG TAB 254913 AZITHROMYCIN Inactive FLAGYL 500 MG TAB 1 tablet by mouth two times daily 07/11/29 FLAGYL 500 MG TAB 628665 METRONIDAZOLE Inactive AUGMENTIN 875-125 MG TAB 1 tab by mouth twice daily with food 08/12/16 AUGMENTIN 875-125 MG TAB 908262 AMOXICILLIN-POT CLAVULA ANGELO Inactive NAPROXEN 500 MG TAB one tab PO BID NAPROXEN 500 MG TAB 122206 NAPROXEN Inactive PREDNISONE 20 MG TAB 2 tabs daily for 3 days, 1 t ab daily for 3 days, 1/2 tab daily for 2 days PREDNISONE 20 MG TAB 567443 PREDNISON E Inactive AZITHROMYCIN 250 MG TABS 2 po qd x 1 day, then 1 po qd x 4 days AZITHROMYCIN 250 MG TABS 198409 AZITHROMYCIN Inactiv e PREDNISONE 20 MG TAB 2 tabs daily for 3 days, 1 t ab daily for 3 days, 1/2 tab daily for 2 days PREDNISONE 20 MG TAB 897281 PREDNISON E Inactive ZITHROMAX Z-EMIL 250 MG TABS 2 today, then 1 daily for 4 days 201 03/31/18 ZITHROMAX Z-EMIL 250 MG TABS 538621 AZITHROMYCIN Inac tive CEFDINIR 300 MG CAPS [...] for 2 days PREDNISONE 20 MG TAB 151001 PREDNISON E Inactive Advance Directives Directive Description [...] Value Unit Range Description Lab Report: Chlamydia/GC APTIMA/05495 - Lab chlamydia DNA probe NOT DETECTED NOT DETECTED Lab Report: Chlamydia/GC APTIMA/27178 - Microbiology Neisseria gonorrhoeae DNA probe NOT [...] ative Encounters Code Encounter Date Provider Facility CPT-79262 Level 3 Est. Patient 15:40:28 RENAE Wilson APRN [facility] CPT-14875 Level 3 Est. Patient 16:40:36 CDT Arie mcqueen MD [facility] CPT-26774 Level 4 Est. Patient 15:29:22 HEALTH AND SAFETY INSTRUCTOR Arie mcqueen MD [facility] CPT-07386 Level 3 Est. Patient 15:18:16 HEALTH AND SAFETY INSTRUCTOR Jono black [facility] CPT-80737 Level 4 Est. Patient 12:08:40 HEALTH AND SAFETY INSTRUCTOR Steve DIRECTOR OPERATIONS [facility] CPT-63090 Level 3 Est. Patient 09:24:42 CDT Steev DIRECTOR OPERATIONS [facility] CPT-72745 Level 3 Est. Patient 09:12:56 CDT Arie mcqueen MD [facility]-70743 Level 3 Est. Patient 16:40:54 CDT Jose Zhong MD [facility] CPT-70877 Level 2 Est. Patient 13:01:13 CDT Steve [facility]-02915 Level 3 Est. Patient 11:55:30 HEALTH AND SAFETY INSTRUCTOR Jono black [facility] CPT-04915 Level 3 Est. Patient 09:52:36 HEALTH AND SAFETY INSTRUCTOR Steve CABRERA [facility] CPT-25662 Level 3 Est. Patient 16:25:33 HEALTH AND SAFETY INSTRUCTOR Rich Rosales MD [facility] CPT-60865 Level 3 Est. Patient 20:33:55 CDT Arie mcqueen MD [facility] CPT-42300 Level 3 Est. Patient 14:18:20 CDT Rich Rosales MD [facility] CPT-55433 Level 4 Est. Patient 09:34:31 CDT Arie mcqueen MD [facility]-56214 Level 3 Est. Patient 09:08:55 HEALTH AND SAFETY INSTRUCTOR Liliana vincent MD, PhD [facility] CPT-03223 Level 3 Est. Patient 16:44:07 HEALTH AND SAFETY INSTRUCTOR Arie mcqueen MD [facility] CPT-56575 Level 3 Est. Patient 10:44:27 CDT Arie mcqueen MD [facility] CPT-18155 Level 3 Est. Patient 08:55:41 CDT Jose Zhong MD [facility] CPT-08643 Level 3 Est. Patient 18:37:31 CDT Liliana vincent MD PhD [facility] CPT-27307 Level 3 Est. Patient 14:28:23 CDT Abelardo HERNANDEZ [facility] CPT-30021 Level 3 Est. Patient 15:18:13 HEALTH AND SAFETY INSTRUCTOR Arie mcqueen MD [facility] CPT-90584 Level 3 Est. Patient 10:11:29 HEALTH AND SAFETY INSTRUCTOR Arie mcqueen MD [facility] CPT-08678 Level 3 Est. Patient 10:55:57 HEALTH AND SAFETY INSTRUCTOR Jono black DO [facility] CPT-40608 Level 3 Est. Patient 17:29:05 CDT Arie mcqueen MD [facility] Procedures Code Procedure Name Date Entry Date Standard Desc ription CPT-45686 Nexplanon Removal 15:40:28 CDT CPT-39259 Sono transvag pelvis non OB uterus ovari es cervix - XRAY USE ONLY 08:58:14 HEALTH AND SAFETY INSTRUCTOR CPT-23101 UA w micro - LAB USE ONLY 16:04:56 HEALTH AND SAFETY INSTRUCTOR 2015 CPT-54224 Wet Prep/GEN - LAB USE ONLY 16:04:56 HEALTH AND SAFETY INSTRUCTOR 20 08/10/29 CPT-65660 First Vx - Ix admin via ID I M or jet injects without counseling by physician 16:57:10 CDT CPT-35461 Fluzone Preservative Free Intramuscular Suspension 16:57:10 CDT CPT-J0696 Rocephin 1000 mg (Ceftriaxone) 11:49:23 CDT CPT-J1040 Depo Medrol 80 mg (Methyl Prednisolone A cetate) 11:49:23 CDT CPT-J1100 Decadron 8mg (Dexamethasone) 11:49:23 CDT 2 CPT-35127 Abx/Therapy Injection 11:49:23 CDT CPT-38628 Abx/Therapy Injection 11:49:23 CDT CPT-08070 Abd compl w upright 09:07:26 HEALTH AND SAFETY INSTRUCTOR CPT-99688 Ear Wash 16:12:47 HEALTH AND SAFETY INSTRUCTOR CPT-OV Office Visit 11:12:01 CDT CPT-OV Office Visit 15:30:23 CDT CPT-76543 Sono pelvis non OB uterus ovaries cervix 15:50:44 CDT CPT-95944 Hand comp min 3V 16:42:32 CDT CPT-90782 Abd compl w upright 12:17:01 CDT CPT-25157 Nexplanon Placement 15:07:39 HEALTH AND SAFETY INSTRUCTOR CPT-62289 Removal of IUD 15:07:39 HEALTH AND SAFETY INSTRUCTOR CPT-82536 TB Tubersol 12:09:32 CDT CPT-59872 TB Tubersol 13:55:43 CDT
--- OUTSIDE RECORDS SUMMARY | 2020-03-03 08:13 | XMS REPORT | Clinical Summary ---
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 PANTOPRAZO LE SODIUM 15971314607 Active Jose Zhong MD Active PREDNISONE 20 MG TAB 2 tabs daily for 3 days, 1 t ab daily for 3 days, 1/2 tab daily for 2 days PREDNISONE 77670636126 No Longer Active Brii Larson APRN Active PREDNISONE 20 MG TAB 1 tablet twice daily for 2 d ays, then 1 tablet once daily for 2 days PREDNISONE 47463351276 No Longer Active Brii Larson APRN Active FLONASE 50 MCG/ACT SUSP 1 spray each nostril twice d aily for allergies and runny nose until gone FLUTICASONE PROPIONATE Active Jono Gagnon DO Active PROMETHAZINE HCL 12.5 MG TABS 1 tablet by mouth every 6 hours as needed for nausea/vomiting PROMETHAZINE HCL 64644640934 No Longe r Active Jono Gagnon DO Active CITRATE OF MAGNESIA ORAL SOLN 1 bottle today for constipation 20 07/10/15 MAGNESIUM CITRATE 45361435078 No Longer Active Jono Gagnon DO Active ZOFRAN 4 MG ORAL TABS 1 TAB PO Q 6 HRS PRN NAUSEA 2014 ONDANSETRON HCL 72683274901 No Longer Active Brii Larson APRN A ctive LOMOTIL 2.5-0.025 MG TAB 1 to 2 four times a day as needed f or diarrhea DIPHENOXYLATE-ATROPINE 99867033185 No Longer Active January Larson APRN Active AMOXICILLIN 500 MG TABS 2 tabs twice a day for 10 days AMOXICILLIN 24173344525 No Longer Active Brii Larson APRN Acti ve NEXPLANON IMPL ETONOGESTREL IMPL 08120405141 Active Rich Rosales MD Active CYCLOBENZAPRINE HCL 10 MG TABS 1/2 - 1 tablet by mouth three times daily as needed for muscle spasm/pain CYCLOBENZAPRINE HCL 37821236914 No Longer Active Arie Casper MD Active LOMOTIL 2.5-0.025 MG TABS 1 to 2 four times a day as needed for diarrhea DIPHENOXYLATE-ATROPINE 97179691149 No Longer Active Fozia Casper MD Active MACROBID 100 MG CAP 1 cap by mouth twice daily NITROFURANTOIN MONOHYD MACRO 80869827969 No Longer Active Arie Casper MD Active ZYRTEC ALLERGY 10 MG CAPS 1 po qd CETIRIZINE HCL 65310337071 No Longer Active Arie Casper MD Active AZITHROMYCIN 250 MG TABS 2 po qd x 1 day, then 1 po qd x 4 days AZITHROMYCIN 95602975118 No Longer Active Jillina Franaomi CABRERA Active PREDNISONE 20 MG TAB 2 tabs daily for 3 days, 1 t ab daily for 3 days, 1/2 tab daily for 2 days PREDNISONE 89894752683 No Longer Active Jillina Frazell RICK Active PROMETHAZINE HCL 25 MG TABS 1 four times a day as needed for vomiting PROMETHAZINE HCL 01317881598 No Longer Active Myrna Roberto MD Active BACTRIM DS 800-160 MG TABS 1 twice a day SULFAMETHOXAZOLE-TRIMETHOPRIM 49587378193 No Longer Active Myrna Roberto MD Active VICKS DAYQUIL SEVERE COLD/FLU TABS 1 tab every 6 hours prn 12/10 [id number]-APAP TABS 34188590363 No Longer Active Myrna leigh MD Active GUAIFENESIN-CODEINE 100-10 MG/5ML ORAL SYRP 2 tsp every 6 hours prn GUAIFENESIN-CODEINE 32559371631 No Longer Active Myrna Roberto MD Active NAPROXEN 500 MG TAB one tab PO BID NAPROXEN 332 53050193 No Longer Active Myrna Roberto MD Active AUGMENTIN 875-125 MG TAB 1 tab by mouth twice daily with food 20 08/12/16 AMOXICILLIN-POT CLAVULANATE 95350437924 No Longer Active Liliana Estrada MD PhD Active AMOXICILLIN 500 MG CAP 1 tab by mouth 3 times daily 08/12/16 AMOXICILLIN 46415430828 No Longer Active Liliana Estrada MD PhD Acti ve TESSALON PERLES 100 MG CAP 1 tablet by mouth 3 times daily 11/01 BENZONATATE 65871743209 No Longer Active Liliana Estrada MD PhD Active FLAGYL 500 MG TAB 1 tablet by mouth two times daily 07/11/29 METRONIDAZOLE 67203067660 No Longer Active Nilam Weber Active ZITHROMAX 250 MG TAB 2 po today, then 1 po q days 2-5 AZITHROMYCIN 53874733819 No Longer Active Arie Casper MD Acti ve VITAMINS 0.8 MG TABS take 1 tab po qday 08/08 [id number] 30568090840 No Longer Active Arie aCsper MD Active IBUPROFEN 800 MG TABS take one po Q 8 hours IBU PROFEN 63473845322 No Longer Active Arie Casper MD Active [facility] TUSSIN COUGH/COLD CF 5-10-100 MG/5ML LIQD 2 teaspoons ev eliud 4 hours [id number] 55971524784 No Longer Active Blaine Casper MD Active COMTREX COLD/COUGH DAY/NITE MS 5-2-10-325 MG MISC 2 caps deja ry 4 hours [id number]-MS-APAP 87393953251 No Longer Active Da aleksandra Casper MD Active CHLORASEPTIC MAX SORE THROAT 15-10 MG LOZG 1 every 2 hours prn 2 /04/30 BENZOCAINE-MENTHOL 62877602823 No Longer Active Arie Marcelo Active PREDNISONE 20 MG TAB 2 tabs daily for 3 days, 1 t ab daily for 3 days, 1/2 tab daily for 2 days PREDNISONE 69359503211 No Longer Active Jose Zhong MD Active AZITHROMYCIN 250 MG TABS 2 po qd x 1 day, then 1 po qd x 4 days AZITHROMYCIN 57074450481 No Longer Active Jose Zhong MD Active ZOFRAN ODT 4 MG TBDP 1 po q6hr PRN Nausea ONDAN SETRON 18942790912 No Longer Active Rich Rosales MD Active ZOFRAN 4 MG TABS 1 tablet every 4 hours ONDANSE JERRELL HCL 28297337191 No Longer Active Rich Rosales MD Active MUCINEX 600 MG [id number]-YTM Take 1-2 tablets every 12 hours GUAIFENESIN 73755601569 No Longer Active Rich Rosales MD Activ e BACTRIM 400-80 MG TABS take one po BID SULFAMETHOXAZOLE-TRIMETHOPRIM 61025899369 No Longer Active Abelardo HERNANDEZ Active AZITHROMYCIN 500 MG TABS 1 PO q day x 6 days [place] ITHROMYCIN 10567824985 No Longer Active Tin HERNANDEZ Active ZITHROMAX 250 MG TAB 2 po today, then 1 po q days 2-5 AZITHROMYCIN 04506658135 No Longer Active Arie Casper MD Acti ve ZITHROMAX 250 MG TAB 2 po today, then 1 po q days 2-5 AZITHROMYCIN 98712966138 No Longer Active Arie Casper MD Acti ve AMOXICILLIN 500 MG CAP 1 tab by mouth 3 times daily 20 09/23/20 AMOXICILLIN 31284306589 No Longer Active Arie Casper MD Acti ve BACTRIM DS 800-160 MG TAB 1 tab by mouth twice daily 2 TRIMETHOPRIM-SULFAMETHOXAZOLE 42154183221 No Longer Active Arie Casper MD Active AMOXICILLIN 500 MG TABS take 1 tab po TID AMOXI CILLIN 94806747081 No Longer Active Arie Casper MD Active BACTRIM DS 800-160 MG TAB 1 tab by mouth twice daily 2 BACTRIM DS 800-160 MG TAB 541330 TRIMETHOPRIM-SULFAMETHOXAZOLE Inac tive MUCINEX 600 MG [id number] Take 1-2 tablets every 12 hours MUCINEX 600 MG [id number]-LTE GUAIFENESIN Inactive ZOFRAN 4 MG TABS 1 tablet every 4 hours ZOFRAN 4 MG TABS 023384 ONDANSETRON HCL Inactive ZOFRAN ODT 4 MG TBDP 1 po q6hr PRN Nausea ZOFRAN ODT 4 MG TBDP 007305 ONDANSETRON Inactive CHLORASEPTIC MAX SORE THROAT 15-10 MG LOZG 1 every 2 hours prn 2 /04/30 CHLORASEPTIC MAX SORE THROAT 15-10 MG LOZG BENZO ARINA-MENTHOL Inactive COMTREX COLD/COUGH DAY/NITE MS 5-2-10-325 MG MISC 2 caps deja ry 4 hours COMTREX COLD/COUGH DAY/NITE MS 5-2-10-325 MG MIS C [id number]-APAP Inactive [facility] TUSSIN COUGH/COLD CF 5-10-100 MG/5ML LIQD 2 teaspoons ev eliud 4 hours [facility] TUSSIN COUGH/COLD CF 5-10-100 MG/5ML LIQD [id number] Inactive IBUPROFEN 800 MG TABS take one po Q 8 hours IBUPROFEN 800 MG TABS IBUPROFEN Inactive VITAMINS 0.8 MG TABS take 1 tab po qday 08/08 VITAMINS 0.8 MG TABS [id number] Inactive TESSALON PERLES 100 MG CAP 1 tablet by mouth 3 times daily 11/01 TESSALON PERLES 100 MG CAP 671389 BENZONATATE Inact zaid AMOXICILLIN 500 MG CAP 1 tab by mouth 3 times daily 08/12/16 AMOXICILLIN 500 MG CAP 449110 AMOXICILLIN Inactive GUAIFENESIN-CODEINE 100-10 MG/5ML ORAL SYRP 2 tsp every 6 hours prn GUAIFENESIN-CODEINE 100-10 MG/5ML ORAL SYRP 818908 GUAIFENESIN-CODEINE Inactive VICKS DAYQUIL SEVERE COLD/FLU TABS 1 tab every 6 hours prn 12/10 VICKS DAYQUIL SEVERE COLD/FLU TABS PHENYLEPHRINE -DM-GG-APAP TABS Inactive BACTRIM DS 800-160 MG TABS 1 twice a day BACTRIM DS 800- 160 MG TABS 988329 SULFAMETHOXAZOLE-TRIMETHOPRIM Inactive PROMETHAZINE HCL 25 MG TABS 1 four times a day as needed for vomiting PROMETHAZINE HCL 25 MG TABS 950261 PROMETHAZINE HCL Inactive ZYRTEC ALLERGY 10 MG CAPS 1 po qd ZY RTEC ALLERGY 10 MG CAPS CETIRIZINE HCL Inactive MACROBID 100 MG CAP 1 cap by mouth twice daily MACROBID 100 MG CAP 2548093 NITROFURANTOIN MONOHYD MACRO Inactive LOMOTIL 2.5-0.025 MG TABS 1 to 2 four times a day as needed for diarrhea LOMOTIL 2.5-0.025 MG TABS 4341116 DIPHENOXYLATE-A TROPINE Inactive CYCLOBENZAPRINE HCL 10 MG TABS 1/2 - 1 tablet by mouth three times daily as needed for muscle spasm/pain CYCLOBENZAP RINE HCL 10 MG TABS 497152 CYCLOBENZAPRINE HCL Inactive AMOXICILLIN 500 MG TABS 2 tabs twice a day for 10 days AMOXICILLIN 500 MG TABS 597668 AMOXICILLIN Inactive LOMOTIL 2.5-0.025 MG TAB 1 to 2 four times a day as needed f or diarrhea LOMOTIL 2.5-0.025 MG TAB 9633504 DIPHENOXYLATE-AT ROPINE Inactive ZOFRAN 4 MG ORAL TABS 1 TAB PO Q 6 HRS PRN NAUSEA 2014 ZOFRAN 4 MG ORAL TABS 458189 ONDANSETRON HCL Inactive CITRATE OF MAGNESIA ORAL SOLN 1 bottle today for constipation 20 07/10/15 CITRATE OF MAGNESIA ORAL SOLN 4950098 MAGNESIUM CITRATE Inactive PROMETHAZINE HCL 12.5 MG TABS 1 tablet by mouth every 6 hours as needed for nausea/vomiting PROMETHAZINE HCL 12.5 MG TABS 483108 PROMETHAZINE HCL Inactive PREDNISONE 20 MG TAB 1 tablet twice daily for 2 d ays, then 1 tablet once daily for 2 days PREDNISONE 20 MG TAB 657602 PREDNISONE Inac tive AMOXICILLIN 500 MG TABS take 1 tab po TID AMOXICILLIN 500 MG TABS 001231 AMOXICILLIN Inactive AMOXICILLIN 500 MG CAP 1 tab by mouth 3 times daily 09/23/20 AMOXICILLIN 500 MG CAP 828918 AMOXICILLIN Inactive ZITHROMAX 250 MG TAB 2 po today, then 1 po q days 2-5 ZITHROMAX 250 MG TAB 0644124 AZITHROMYCIN Inactive ZITHROMAX 250 MG TAB 2 po today, then 1 po q days 2-5 ZITHROMAX 250 MG TAB 6875393 AZITHROMYCIN Inactive AZITHROMYCIN 500 MG TABS 1 PO q day x 6 days 3 AZITHROMYCIN 500 MG TABS 6290383 AZITHROMYCIN Inactive BACTRIM 400-80 MG TABS take one po BID BA CTRIM 400-80 MG TABS 370150 SULFAMETHOXAZOLE-TRIMETHOPRIM Inactive AZITHROMYCIN 250 MG TABS 2 po qd x 1 day, then 1 po qd x 4 days AZITHROMYCIN 250 MG TABS 5000113 AZITHROMYCIN Inactiv e PREDNISONE 20 MG TAB 2 tabs daily for 3 days, 1 t ab daily for 3 days, 1/2 tab daily for 2 days PREDNISONE 20 MG TAB 639962 PREDNISON E Inactive ZITHROMAX 250 MG TAB 2 po today, then 1 po q days 2-5 ZITHROMAX 250 MG TAB 6105235 AZITHROMYCIN Inactive FLAGYL 500 MG TAB 1 tablet by mouth two times daily 07/11/29 FLAGYL 500 MG TAB 645677 METRONIDAZOLE Inactive AUGMENTIN 875-125 MG TAB 1 tab by mouth twice daily with food 20 08/12/16 AUGMENTIN 875-125 MG TAB 384301 AMOXICILLIN-POT CLAVULA ANGELO Inactive NAPROXEN 500 MG TAB one tab PO BID NAPROXEN 500 MG TAB 952587 NAPROXEN Inactive PREDNISONE 20 MG TAB 2 tabs daily for 3 days, 1 t ab daily for 3 days, 1/2 tab daily for 2 days PREDNISONE 20 MG TAB 709655 PREDNISON E Inactive AZITHROMYCIN 250 MG TABS 2 po qd x 1 day, then 1 po qd x 4 days AZITHROMYCIN 250 MG TABS 5141132 AZITHROMYCIN Inactiv e PREDNISONE 20 MG TAB 2 tabs daily for 3 days, 1 t ab daily for 3 days, 1/2 tab daily for 2 days PREDNISONE 20 MG TAB 320248 PREDNISON E Inactive Advance Directives Directive Description [...] Panel - Chemistry sodium, serum 136 mmol/L 451-012 3994/04/26 carbon dioxide, venous blood 29.9 mmol/L 21.0-32 [...] 284 10^3/MM^3 10*3/mm3 142-424 Lab Report: Chlamydia/GC APTIMA/[id number] - Lab chlamydia DNA probe NOT DETECTED NOT DETECTED Lab Report: Chlamydia/GC APTIMA/63442 - Microbiology Neisseria gonorrhoeae DNA probe NOT DETECTED NO T DETECTED Lab Report: Comp. Metabolic Panel - Chem istry sodium, serum 139 mmol/L 031-941 6689/12/15 carbon dioxide, venous blood 30.2 mmol/L 21.0-32 .0 potassium, serum 3.4 mmol/L 3.5-5.2 chloride, serum 101 mmol/L 98-107 blood glucose 92 mg/dL 65-110 urea nitrogen, blood 5 mg/dL 7-18 creatinine, serum 0.81 mg/dL 0.55-1.30 alanine aminotransferase (SGPT), serum 20 U/L 12-78 aspartate aminotransferase (SGOT), serum 10 U/L 15-37 calcium, serum 8.4 mg/dL 8.5-10.1 bilirubin, serum, total 0.60 mg/dL 0.00-1.00 Lab Report: HIV-1/2 Agn/Darcy/59603, HEPAT ITIS PANEL, ACUTE W/REFLE - Chemistry [...] Negative Encounters Code Encounter Date Provider Facility CPT-66168 Level 3 Est. Patient 16:40:54 CDT Jose Zhong MD [facility] CPT-27233 Level 2 Est. Patient 13:01:13 CDT Steve [employer]IONICS SAFETY INSPECTOR [facility] CPT-26142 Level 3 Est. Patient 11:55:30 FR[employer] DESK AGENT Jono black DO [facility] CPT-92251 Level 3 Est. Patient 09:52:36 FR[employer] DESK AGENT Steve AVIONICS SAFETY INSPECTOR [facility] CPT-66733 Level 3 Est. Patient 16:25:33 FR[employer] DESK AGENT Rich Rosales MD [facility] CPT-43763 Level 3 Est. Patient 20:33:55 CDT Arie mcqueen MD [facility] CPT-53886 Level 3 Est. Patient 14:18:20 CDT Rich Rosales MD [facility] CPT-07652 Level 4 Est. Patient 09:34:31 CDT Arie mcqueen MD [facility] CPT-68890 Level 3 Est. Patient 09:08:55 FR[employer] DESK AGENT Liliana vincent MD PhD [facility] CPT-76287 Level 3 Est. Patient 16:44:07 FR[employer] DESK AGENT Arie mcqueen MD [facility] CPT-39880 Level 3 Est. Patient 10:44:27 CDT Arie mcquene MD [facility] CPT-64630 Level 3 Est. Patient 08:55:41 CDT Jose Zhong MD [facility] CPT-51705 Level 3 Est. Patient 18:37:31 CDT Liliana vincent MD PhD [facility] CPT-09976 Level 3 Est. Patient 14:28:23 CDT Abelardo HERNANDEZ [facility] CPT-23951 Level 3 Est. Patient 15:18:13 FR[employer] DESK AGENT Arie mcqueen MD [facility] CPT-39140 Level 3 Est. Patient 10:11:29 FR[employer] DESK AGENT Arie mcqueen MD [facility] CPT-82268 Level 3 Est. Patient 10:55:57 FR[employer] DESK AGENT Jono black DO [facility] CPT-51670 Level 3 Est. Patient 17:29:05 CDT Arie mcqueen MD [facility] Procedures Code Procedure Name Date Entry Date Standard Desc ription CPT-33222 Abd compl w upright 09:07:26 FRONT DESK AGENT CPT-81109 Ear Wash 16:12:47 FRONT DESK AGENT CPT-OV Office Visit 11:12:01 CDT CPT-OV Office Visit 15:30:23 CDT CPT-20663 Sono pelvis non OB uterus ovaries cervix 15:50:44 CDT CPT-50561 Hand comp min 3V 16:42:32 CDT CPT-29432 Abd compl w upright 12:17:01 CDT CPT-36792 Nexplanon Placement 15:07:39 FRONT DESK AGENT CPT-04098 Removal of IUD 15:07:39 FRONT DESK AGENT CPT-52912 TB Tubersol 12:09:32 CDT CPT-20438 TB Tubersol 13:55:43 CDT
--- OUTSIDE RECORDS SUMMARY | 2020-03-03 08:13 | XMS REPORT | Clinical Summary ---
Author Author Admin, Diamante Marcelo Organization [employer] Address Unknown Phone Unavailable Allergies, Adverse Reactions, [...] Abdominal pain, unspecified site Diarrhea 787.91 Resolved Jsoe Zhong MD Diarrhea Thumb pain, right 729.5 [...] pharyngitis Nausea 787.02 Active Brii Larson DIRECTOR SPORTS Nausea alone URI 465.9 Active Jono Gagnon DO Acu te upper respiratory infections of unspecified site Allergic rhinitis 477.9 Active Brii Christianson PRN Allergic rhinitis, cause unspecified Abdominal pain, right lower quadrant 789.03 Active Jose Zhong MD Abdominal pain, right lower quadrant Urinary frequency 788.41 Inactive Roseann Crawford Urinary frequency Urinary frequency 788.41 Active 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, 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 Urinary frequency Sinusitis - acute 461.9 Active Brii Christianson PRN Acute sinusitis, unspecified Anxiety with depression 300.4 Active Glenn Larson DIRECTOR SPORTS Dysthymic disorder URI 465.9 Active Jono Gagnon DO Acu te upper respiratory infections of unspecified site Vaginal bleeding 623.8 Active Brii MARROQUIN RN Other specified noninflammatory disorders of vagina High risk sexual behavior V69.2 Active Arie Casper MD High-risk sexual behavior GERD 530.81 Active Arie Casper MD Esophageal reflux Encounter for surveillance of implantable subdermal contraceptiv e Active Brii Larson DIRECTOR SPORTS Vaginal bleeding 623.8 Active Arie Casper MD [...] RELEASE 1 po q a.m. PANTOPRAZOLE SODIUM 99583810252 No Longer Active Arie Casper MD Active BACTRIM DS 800-160 MG ORAL TABLET 1 tab by mouth twice daily 201 05/02/30 TRIMETHOPRIM-SULFAMETHOXAZOLE 16585082047 No Longer Active R [facility] Active NEXPLANON IMPLANT right arm subcutaneously ETONOGESTREL IMPL 26965246669 No Longer Active Brii Larson APRN Acti ve TUSSIONEX PENNKINETIC ER 10-8 MG/5ML ORAL SUSPENSION E XTENDED RELEASE 5ml po q12hr PRN Cough HYDROCOD POLST-CHLORPHEN POLST 5 1104672772 No Longer Active Brii Larson APRN Active CETIRIZINE HCL 10 MG ORAL TABLET 1 po qd PRN Allergies CETIRIZINE HCL 15111520450 No Longer Active Brii Larson APRN Ac tive PREDNISONE 20 MG ORAL TABLET 2 tabs daily for 3 days, 1 tab daily for 3 days, 1/2 tab daily for 2 days PREDNISONE 05100294383 No Longer Active Arie Casper MD Active LOMOTIL 2.5-0.025 MG ORAL TABLET 1 tab po four times a day as needed for diarrhea DIPHENOXYLATE-ATROPINE 81110687106 No Lo nger Active Arie Casper MD Active ZOLOFT 50 MG ORAL TABLET 1 tablet by mouth daily 12/08 SERTRALINE HCL 52114273631 No Longer Active Arie Casper MD Ac tive NAPROXEN 500 MG ORAL TABLET Take 1 tab BID NAPR OXEN 03315099672 No Longer Active Arie Casper MD Active CEFDINIR 300 MG ORAL CAPSULE 1 po BID x 10 days CEFDINIR 11614930194 No Longer Active Brii Larson APRN Active PREDNISONE 20 MG ORAL TABLET 1 tablet daily for airway inflammat ion PREDNISONE 57351931603 No Longer Active Brii Larson APRN Active CEFDINIR 300 MG ORAL CAPSULE 1 po BID x 10 days CEFDINIR 69601808141 No Longer Active Jono Gagnon DO Active FLONASE 50 MCG/ACT NASAL SUSPENSION 1 spray each nostr il twice daily for allergies and runny nose until gone FLUT ICASONE PROPIONATE 96187148185 No Longer Active Jono Gagnon DO Active ALPRAZOLAM 0.25 MG ORAL TABLET 1 tablet by mouth every 8 hours as needed for stress ALPRAZOLAM 87727698167 No Longer Active Jono Gagnon DO Active ZITHROMAX Z-EMIL 250 MG ORAL TABLET 2 today, then 1 daily for 4 d ays AZITHROMYCIN 40013508774 No Longer Active Arie Casper MD Active PREDNISONE 20 MG ORAL TABLET 2 tabs daily for 3 days, 1 tab daily for 3 days, 1/2 tab daily for 2 days PREDNISONE 99716560237 No Longer Active Brii Larson APRN Active PREDNISONE 20 MG ORAL TABLET 1 tablet twice daily for 2 days, then 1 tablet once daily for 2 days PREDNISONE 14516799486 No Longer Active Brii Larson APRN Active PROMETHAZINE HCL 12.5 MG ORAL TABLET 1 tablet by mouth every 6 hours as needed for nausea/vomiting PROMETHAZINE HCL 24456376607 No L onger Active Jono Gagnon DO Active CITRATE OF MAGNESIA ORAL SOLUTION 1 bottle today for constipatio n MAGNESIUM CITRATE 17699854960 No Longer Active Jono Gagnon DO Active ZOFRAN 4 MG ORAL TABLET 1 TAB PO Q 6 HRS PRN NAUSEA 20 07/10/15 ONDANSETRON HCL 58920625571 No Longer Active Brii Larson APRN A ctive LOMOTIL 2.5-0.025 MG ORAL TABLET 1 to 2 four times a day as needed for diarrhea DIPHENOXYLATE-ATROPINE 65354894654 No Longer Active January Larson APRN Active AMOXICILLIN 500 MG ORAL TABLET 2 tabs twice a day for 10 days 20 07/09/11 AMOXICILLIN 43814930689 No Longer Active Brii Larson APRN Active CYCLOBENZAPRINE HCL 10 MG ORAL TABLET 1/2 - 1 tablet b y mouth three times daily as needed for muscle spasm/pain CYCLOBENZAPRINE HCL 92731175284 No Longer Active Arie Casper MD Active LOMOTIL 2.5-0.025 MG ORAL TABLET 1 to 2 four times a day as needed for diarrhea DIPHENOXYLATE-ATROPINE 19019215086 No Longer Active D freddy Casper MD Active MACROBID 100 MG ORAL CAPSULE 1 cap by mouth twice daily NITROFURANTOIN MONOHYD MACRO 34068137104 No Longer Active Arie Casper MD Active ZYRTEC ALLERGY 10 MG ORAL CAPSULE 1 po qd CE TIRIZINE HCL 81382224753 No Longer Active Arie Casper MD Active AZITHROMYCIN 250 MG ORAL TABLET 2 po qd x 1 day, then 1 po q d x 4 days AZITHROMYCIN 27899432829 No Longer Active Jessica salgado APRN Active PREDNISONE 20 MG ORAL TABLET 2 tabs daily for 3 days, 1 tab daily for 3 days, 1/2 tab daily for 2 days PREDNISONE 78307955129 No Longer Active Jessica Heaton DIRECTOR SPORTS Active PROMETHAZINE HCL 25 MG ORAL TABLET 1 four times a day as nee ded for vomiting PROMETHAZINE HCL 02085828145 No Longer Active Myrna Roberto MD Active BACTRIM DS 800-160 MG ORAL TABLET 1 twice a day 05/30 SULFAMETHOXAZOLE-TRIMETHOPRIM 30929213248 No Longer Active Myrna Roberto MD Active VICKS DAYQUIL SEVERE COLD/FLU TABLET 1 tab every 6 hours prn 201 02/22/17 [id number] TABS 79462971588 No Longer Active Chris Roberto MD Active GUAIFENESIN-CODEINE 100-10 MG/5ML ORAL SYRUP 2 tsp every 6 hours prn GUAIFENESIN-CODEINE 07793139364 No Longer Active Myrna Roberto MD Active NAPROXEN 500 MG ORAL TABLET one tab PO BID NAPR OXEN 11429189935 No Longer Active Myrna Roberto MD Active AUGMENTIN 875-125 MG ORAL TABLET 1 tab by mouth twice daily with food AMOXICILLIN-POT CLAVULANATE 74281246570 No Longer Act zaid Liliana Estrada MD PhD Active AMOXICILLIN 500 MG ORAL CAPSULE 1 tab by mouth 3 times daily 201 02/21/05 AMOXICILLIN 26411504609 No Longer Active Liliana Estrada MD PhD Active TESSALON PERLES 100 MG ORAL CAPSULE 1 tablet by mouth 3 times da cory BENZONATATE 08012014663 No Longer Active Liliana Estrada MD PhD Active FLAGYL 500 MG ORAL TABLET 1 tablet by mouth two times daily 2014 METRONIDAZOLE 28476068153 No Longer Active Nilam Doran tive ZITHROMAX 250 MG ORAL TABLET 2 po today, then 1 po q days 2-5 20 06/08/16 AZITHROMYCIN 87460853889 No Longer Active Arie Casper MD Active VITAMINS 0.8 MG ORAL TABLET take 1 tab po qday [id number] 62644065254 No Longer Active Arie Casper MD Active IBUPROFEN 800 MG ORAL TABLET take one po Q 8 hours 201 02/01/16 IBUPROFEN 02900749969 No Longer Active Arie Casper MD Acti ve [facility] TUSSIN COUGH/COLD CF 5-10-100 MG/5ML ORAL LIQUID 2 teasp oons every 4 hours [id number] 56435310314 No Longer Active Blaine Casper MD Active COMTREX COLD/COUGH DAY/NITE MS 5-2-10-325 MG ORAL 2 caps deja ry 4 hours [id number] 14838775672 No Longer Active Da aleksandra Casper MD Active CHLORASEPTIC MAX SORE THROAT 15-10 MG MOUTH/THROAT LOZENGE 1 every 2 hours prn BENZOCAINE-MENTHOL 96664047727 No Longer Active Arie Casper MD Active PREDNISONE 20 MG ORAL TABLET 2 tabs daily for 3 days, 1 tab daily for 3 days, 1/2 tab daily for 2 days PREDNISONE 40261133906 No Longer Active Jose Zhong MD Active AZITHROMYCIN 250 MG ORAL TABLET 2 po qd x 1 day, then 1 po q d x 4 days AZITHROMYCIN 61451467840 No Longer Active Jose Mcwilliams MD Active ZOFRAN ODT 4 MG ORAL TABLET DISINTEGRATING 1 po q6hr PRN Nausea ONDANSETRON 19495106262 No Longer Active Rich Rosales MD Active ZOFRAN 4 MG ORAL TABLET 1 tablet every 4 hours ONDANSETRON HCL 39542139838 No Longer Active Rich Rosales MD Activ e MUCINEX 600 MG ORAL TABLET EXTENDED RELEASE 12 HOUR Ta ke 1-2 tablets every 12 hours GUAIFENESIN 23858697107 No Longer Active Rich Rosales MD Active BACTRIM 400-80 MG ORAL TABLET take one po BID SULFAMETHOXAZOLE-TRIMETHOPRIM 94179208435 No Longer Active Abelardo HERNANDEZ Active AZITHROMYCIN 500 MG ORAL TABLET 1 PO q day x 6 days 20 03/02/23 AZITHROMYCIN 31901959245 No Longer Active Tin HERNANDEZ Activ e ZITHROMAX 250 MG ORAL TABLET 2 po today, then 1 po q days 2-5 20 10/03/08 AZITHROMYCIN 27573097272 No Longer Active Arie Casper MD Active ZITHROMAX 250 MG ORAL TABLET 2 po today, then 1 po q days 2-5 20 09/23/25 AZITHROMYCIN 47308905474 No Longer Active Arie Casper MD Active AMOXICILLIN 500 MG ORAL CAPSULE 1 tab by mouth 3 times daily 201 11/24/09 AMOXICILLIN 37151356361 No Longer Active Arie Casper MD Active BACTRIM DS 800-160 MG ORAL TABLET 1 tab by mouth twice daily 201 11/03/14 TRIMETHOPRIM-SULFAMETHOXAZOLE 64253380517 No Longer Active Fozia Casper MD Active AMOXICILLIN 500 MG ORAL TABLET take 1 tab po TID 08/05 AMOXICILLIN 14234791895 No Longer Active Arie Casper MD Acti ve BACTRIM DS 800-160 MG ORAL TABLET 1 tab by mouth twice daily 201 11/03/14 BACTRIM DS 800-160 MG ORAL TABLET 806513 TRIMETHOPRIM-SULFAMETHOXAZOLE Inactive MUCINEX 600 MG ORAL TABLET EXTENDED RELEASE 12 HOUR Ta ke 1-2 tablets every 12 hours MUCINEX 600 MG ORAL TABLET EXTENDED RELEA SE 12 HOUR GUAIFENESIN Inactive ZOFRAN 4 MG ORAL TABLET 1 tablet every 4 hours ZOFRAN 4 MG ORAL TABLET 734043 ONDANSETRON HCL Inactive ZOFRAN ODT 4 MG ORAL TABLET DISINTEGRATING 1 po q6hr PRN Nausea ZOFRAN ODT 4 MG ORAL TABLET DISINTEGRATING 837231 ONDAN SETRON Inactive CHLORASEPTIC MAX SORE THROAT 15-10 MG MOUTH/THROAT LOZENGE 1 every 2 hours prn CHLORASEPTIC MAX SORE THROAT 15-10 MG MOUTH/THROAT LOZENGE BENZOCAINE-MENTHOL Inactive COMTREX COLD/COUGH DAY/NITE MS 5-2-10-325 MG ORAL 2 caps deja ry 4 hours COMTREX COLD/COUGH DAY/NITE MS 5-2-10-325 MG ORA L [id number] Inactive [facility] TUSSIN COUGH/COLD CF 5-10-100 MG/5ML ORAL LIQUID 2 teasp oons every 4 hours [facility] TUSSIN COUGH/COLD CF 5-10-100 MG/5ML ORAL LI QUID [id number] Inactive IBUPROFEN 800 MG ORAL TABLET take one po Q 8 hours 201 02/01/16 IBUPROFEN 800 MG ORAL TABLET IBUPROFEN Inactive VITAMINS 0.8 MG ORAL TABLET take 1 tab po qday VITAMINS 0.8 MG ORAL TABLET [id number] E-FA Inactive TESSALON PERLES 100 MG ORAL CAPSULE 1 tablet by mouth 3 times da cory TESSALON PERLES 100 MG ORAL CAPSULE 170792 BENZONATATE Inactive AMOXICILLIN 500 MG ORAL CAPSULE 1 tab by mouth 3 times daily 201 02/21/05 AMOXICILLIN 500 MG ORAL CAPSULE 012466 AMOXICILLIN Inactive GUAIFENESIN-CODEINE 100-10 MG/5ML ORAL SYRUP 2 tsp every 6 hours prn GUAIFENESIN-CODEINE 100-10 MG/5ML ORAL SYRUP 066963 GUAIFENESIN-CODEINE Inactive VICKS DAYQUIL SEVERE COLD/FLU TABLET 1 tab every 6 hours prn 201 02/22/17 VICKS DAYQUIL SEVERE COLD/FLU TABLET PHENYLEPHRI CH-XF-CA-APAP TABS Inactive BACTRIM DS 800-160 MG ORAL TABLET 1 twice a day 05/30 BACTRIM DS 800-160 MG ORAL TABLET 627887 SULFAMETHOXAZOLE-TRIMETHOPRIM Inactiv e PROMETHAZINE HCL 25 MG ORAL TABLET 1 four times a day as nee ded for vomiting PROMETHAZINE HCL 25 MG ORAL TABLET 707310 PROMETHAZINE HCL Inactive ZYRTEC ALLERGY 10 MG ORAL CAPSULE 1 po qd ZYRTEC ALLERGY 10 MG ORAL CAPSULE CETIRIZINE HCL Inactive MACROBID 100 MG ORAL CAPSULE 1 cap by mouth twice daily MACROBID 100 MG ORAL CAPSULE 6414880 NITROFURANTOIN MONOHYD MACRO In active LOMOTIL 2.5-0.025 MG ORAL TABLET 1 to 2 four times a day as needed for diarrhea LOMOTIL 2.5-0.025 MG ORAL TABLET 7668980 DIPHENOXYLATE-ATROPINE Inactive CYCLOBENZAPRINE HCL 10 MG ORAL TABLET 1/2 - 1 tablet b y mouth three times daily as needed for muscle spasm/pain CYCLOBEN ZAPRINE HCL 10 MG ORAL TABLET 556607 CYCLOBENZAPRINE HCL Inactive AMOXICILLIN 500 MG ORAL TABLET 2 tabs twice a day for 10 days 20 07/09/11 AMOXICILLIN 500 MG ORAL TABLET 346605 AMOXICILLIN I nactive LOMOTIL 2.5-0.025 MG ORAL TABLET 1 to 2 four times a day as needed for diarrhea LOMOTIL 2.5-0.025 MG ORAL TABLET 9146521 DIPHENOXYLATE-ATROPINE Inactive ZOFRAN 4 MG ORAL TABLET 1 TAB PO Q 6 HRS PRN NAUSEA 20 07/10/15 ZOFRAN 4 MG ORAL TABLET 126170 ONDANSETRON HCL Inactive CITRATE OF MAGNESIA ORAL SOLUTION 1 bottle today for constipatio n CITRATE OF MAGNESIA ORAL SOLUTION 1380223 MAGNESIUM CITR ATE Inactive PROMETHAZINE HCL 12.5 MG ORAL TABLET 1 tablet by mouth every 6 hours as needed for nausea/vomiting PROMETHAZINE HCL 12.5 MG ORA L TABLET 390454 PROMETHAZINE HCL Inactive PREDNISONE 20 MG ORAL TABLET 1 tablet twice daily for 2 days, then 1 tablet once daily for 2 days PREDNISONE 20 MG ORAL TABLET 383915 PREDNISONE Inactive ALPRAZOLAM 0.25 MG ORAL TABLET 1 tablet by mouth every 8 hours as needed for stress ALPRAZOLAM 0.25 MG ORAL TABLET 363223 ALPRA ZOLAM Inactive FLONASE 50 MCG/ACT NASAL SUSPENSION 1 spray each nostr il twice daily for allergies and runny nose until gone FLON ASE 50 MCG/ACT NASAL SUSPENSION 3264273 FLUTICASONE PROPIONATE Inactive PREDNISONE 20 MG ORAL TABLET 1 tablet daily for airway inflammat ion PREDNISONE 20 MG ORAL TABLET 118198 PREDNISONE Arlen ctive NAPROXEN 500 MG ORAL TABLET Take 1 tab BID NAPROXEN 500 MG ORAL TABLET 045806 NAPROXEN Inactive ZOLOFT 50 MG ORAL TABLET 1 tablet by mouth daily 12/08 ZOLOFT 50 MG ORAL TABLET 779770 SERTRALINE HCL Inactive LOMOTIL 2.5-0.025 MG ORAL TABLET 1 tab po four times a day as needed for diarrhea LOMOTIL 2.5-0.025 MG ORAL TABLET 5449691 DIPHENOXYLATE-ATROPINE Inactive CETIRIZINE HCL 10 MG ORAL TABLET 1 po qd PRN Allergies CETIRIZINE HCL 10 MG ORAL TABLET 7895004 CETIRIZINE HCL Inactiv e TUSSIONEX PENNKINETIC ER 10-8 MG/5ML ORAL SUSPENSION E XTENDED RELEASE 5ml po q12hr PRN Cough TUSSIONEX PENNKINETI C ER 10-8 MG/5ML ORAL SUSPENSION EXTENDED RELEASE HYDROCOD POLST-CHLORPHEN POLST I nactive NEXPLANON IMPLANT right arm subcutaneously NEXPLANON IMPLANT ETONOGESTREL IMPL Inactive PROTONIX 40 MG ORAL TABLET DELAYED RELEASE 1 po q a.m. PROTONIX 40 MG ORAL TABLET DELAYED RELEASE 931556 PANTOPRAZOLE SODI UM Inactive AMOXICILLIN 500 MG ORAL TABLET take 1 tab po TID 08/05 AMOXICILLIN 500 MG ORAL TABLET 223690 AMOXICILLIN Inactive AMOXICILLIN 500 MG ORAL CAPSULE 1 tab by mouth 3 times daily 201 11/24/09 AMOXICILLIN 500 MG ORAL CAPSULE 410372 AMOXICILLIN Inactive ZITHROMAX 250 MG ORAL TABLET 2 po today, then 1 po q days 2-5 20 09/23/25 ZITHROMAX 250 MG ORAL TABLET 273927 AZITHROMYCIN [place] ctive ZITHROMAX 250 MG ORAL TABLET 2 po today, then 1 po q days 2-5 20 10/03/08 ZITHROMAX 250 MG ORAL TABLET 388769 AZITHROMYCIN Arlen ctive AZITHROMYCIN 500 MG ORAL TABLET 1 PO q day x 6 days 20 03/02/23 AZITHROMYCIN 500 MG ORAL TABLET 6985124 AZITHROMYCIN Inactive BACTRIM 400-80 MG ORAL TABLET take one po BID BACTRIM 400- 80 MG ORAL TABLET 600242 SULFAMETHOXAZOLE-TRIMETHOPRIM Inactive AZITHROMYCIN 250 MG ORAL TABLET 2 po qd x 1 day, then 1 po q d x 4 days AZITHROMYCIN 250 MG ORAL TABLET 030937 AZITHROMY ALLISON Inactive PREDNISONE 20 MG ORAL TABLET 2 tabs daily for 3 days, 1 tab daily for 3 days, 1/2 tab daily for 2 days PREDNISONE 20 MG ORAL T ABLET 681629 PREDNISONE Inactive ZITHROMAX 250 MG ORAL TABLET 2 po today, then 1 po q days 2-5 20 06/08/16 ZITHROMAX 250 MG ORAL TABLET 398752 AZITHROMYCIN [place] ctive FLAGYL 500 MG ORAL TABLET 1 tablet by mouth two times daily 2014 FLAGYL 500 MG ORAL TABLET 012295 METRONIDAZOLE Inacti ve AUGMENTIN 875-125 MG ORAL TABLET 1 tab by mouth twice daily with food AUGMENTIN 875-125 MG ORAL TABLET 989554 AMOXICIL ELSA-POT CLAVULANATE Inactive NAPROXEN 500 MG ORAL TABLET one tab PO BID NAPROXEN 500 MG ORAL TABLET 546922 NAPROXEN Inactive PREDNISONE 20 MG ORAL TABLET 2 tabs daily for 3 days, 1 tab daily for 3 days, 1/2 tab daily for 2 days PREDNISONE 20 MG ORAL T ABLET 683923 PREDNISONE Inactive AZITHROMYCIN 250 MG ORAL TABLET 2 po qd x 1 day, then 1 po q d x 4 days AZITHROMYCIN 250 MG ORAL TABLET 752696 AZITHROMY ALLISON Inactive PREDNISONE 20 MG ORAL TABLET 2 tabs daily for 3 days, 1 tab daily for 3 days, 1/2 tab daily for 2 days PREDNISONE 20 MG ORAL T ABLET 374611 PREDNISONE Inactive ZITHROMAX Z-EMIL 250 MG ORAL TABLET 2 today, then 1 daily for 4 d ays ZITHROMAX Z-EMIL 250 MG ORAL TABLET 450027 AZITHROMYCIN Inactive CEFDINIR 300 MG ORAL CAPSULE 1 po BID x 10 days 12/18 CEFDINIR 300 MG ORAL CAPSULE 329356 CEFDINIR Inactive CEFDINIR 300 MG ORAL CAPSULE 1 po BID x 10 days CEFDINIR 300 MG ORAL CAPSULE 383918 CEFDINIR Inactive PREDNISONE 20 MG ORAL TABLET 2 tabs daily for 3 days, 1 tab daily for 3 days, 1/2 tab daily for 2 days PREDNISONE 20 MG ORAL T ABLET 283141 PREDNISONE Inactive BACTRIM DS 800-160 MG ORAL TABLET 1 tab by mouth twice daily 201 05/02/30 BACTRIM DS 800-160 MG ORAL TABLET 582337 TRIMETHOPRIM-SULFAMETHOXAZOLE Inactive Advance Directives Directive Description Start [...] 263 10^3/MM^3 10*3/mm3 142-424 Lab Report: Chlamydia/GC [facility]TIM[facility]/[id number] - Lab chlamydia DNA probe NOT DETECTED NOT DETECTED Lab Report: Chlamydia/GC [facility]/63439 - Microbiology Neisseria gonorrhoeae DNA probe NOT [...] 5.0-8.5 Encounters Code Encounter Date Provider Facility CPT-76474 Level 3 Est. Patient 11:35:15 SENIOR PATIENT ACCOUNT REPRESENTATIVE Arie mcqueen MD [facility] CPT-12750 Level 3 Est. Patient 15:40:28 CDT [facility]-00320 Level 3 Est. Patient 16:40:36 CDT Arie mcqueen MD [facility] CPT-56766 Level 4 Est. Patient 15:29:22 SENIOR PATIENT ACCOUNT REPRESENTATIVE Arie mcqueen MD [facility] CPT-55431 Level 3 Est. Patient 15:18:16 SENIOR PATIENT ACCOUNT REPRESENTATIVE Jono black DO [facility] CPT-93502 Level 4 Est. Patient 12:08:40 SENIOR PATIENT ACCOUNT REPRESENTATIVE Steve [facility]-49424 Level 3 Est. Patient 09:24:42 CDT [facility]-92904 Level 3 Est. Patient 09:12:56 CDT Arie mcqueen MD [facility] CPT-20715 Level 3 Est. Patient 16:40:54 CDT Jose Zhong MD [facility] CPT-80823 Level 2 Est. Patient 13:01:13 CDT Steve CABRERA [facility]-57172 Level 3 Est. Patient 11:55:30 SENIOR PATIENT ACCOUNT REPRESENTATIVE Jono black DO [facility] CPT-38817 Level 3 Est. Patient 09:52:36 SENIOR PATIENT ACCOUNT REPRESENTATIVE Brii Abhinav so DIRECTOR SPORTS [facility] CPT-09705 Level 3 Est. Patient 16:25:33 SENIOR PATIENT ACCOUNT REPRESENTATIVE Rich Rosales MD [facility]-11335 Level 3 Est. Patient 20:33:55 CDT Arie mcqueen MD [facility] CPT-95760 Level 3 Est. Patient 14:18:20 CDT Rich Rosales MD [facility] CPT-87583 Level 4 Est. Patient 09:34:31 CDT Arie mcqueen MD [facility]-50561 Level 3 Est. Patient 09:08:55 SENIOR PATIENT ACCOUNT REPRESENTATIVE Liliana vincent MD [facility]-82766 Level 3 Est. Patient 16:44:07 SENIOR PATIENT ACCOUNT REPRESENTATIVE Arie mcqueen MD [facility] CPT-29138 Level 3 Est. Patient 10:44:27 CDT Arie mcqueen MD [facility] CPT-51645 Level 3 Est. Patient 08:55:41 CDT Jose Zhong MD [facility] CPT-41942 Level 3 Est. Patient 18:37:31 CDT Liliana vincent MD [facility]-45215 Level 3 Est. Patient 14:28:23 CDT Abelardo HERNANDEZ [facility]-02109 Level 3 Est. Patient 15:18:13 SENIOR PATIENT ACCOUNT REPRESENTATIVE Arie mcqueen MD [facility] CPT-93309 Level 3 Est. Patient 10:11:29 SENIOR PATIENT ACCOUNT REPRESENTATIVE Arie mcqueen MD [facility] CPT-41279 Level 3 Est. Patient 10:55:57 SENIOR PATIENT ACCOUNT REPRESENTATIVE Jono black DO [facility] CPT-36832 Level 3 Est. Patient 17:29:05 CDT Arie mcqueen MD [facility] Procedures Code Procedure Name Date Entry Date Standard Desc ription CPT-59805 Nexplanon Removal 15:40:28 CDT CPT-98218 Sono transvag pelvis non OB uterus ovari es cervix - XRAY USE ONLY 08:58:14 SENIOR PATIENT ACCOUNT REPRESENTATIVE CPT-61248 UA w micro - LAB USE ONLY 16:04:56 SENIOR PATIENT ACCOUNT REPRESENTATIVE 2015 CPT-39495 Wet Prep/GEN - LAB USE ONLY 16:04:56 SENIOR PATIENT ACCOUNT REPRESENTATIVE 20 08/10/29 CPT-02260 First Vx - Ix admin via ID I M or jet injects without counseling by physician 16:57:10 CDT CPT-57608 Fluzone Preservative Free Intramuscular Suspension 16:57:10 CDT CPT-J0696 Rocephin 1000 mg (Ceftriaxone) 11:49:23 CDT CPT-J1040 Depo Medrol 80 mg (Methyl Prednisolone A cetate) 11:49:23 CDT CPT-J1100 Decadron 8mg (Dexamethasone) 11:49:23 CDT 2 CPT-39632 Abx/Therapy Injection 11:49:23 CDT CPT-62152 Abx/Therapy Injection 11:49:23 CDT CPT-75710 Abd compl w upright 09:07:26 SENIOR PATIENT ACCOUNT REPRESENTATIVE CPT-89328 Ear Wash 16:12:47 SENIOR PATIENT ACCOUNT REPRESENTATIVE CPT-OV Office Visit 11:12:01 CDT CPT-OV Office Visit 15:30:23 CDT CPT-92688 Sono pelvis non OB uterus ovaries cervix 15:50:44 CDT CPT-55812 Hand comp min 3V 16:42:32 CDT CPT-82206 Abd compl w upright 12:17:01 CDT CPT-39209 Nexplanon Placement 15:07:39 SENIOR PATIENT ACCOUNT REPRESENTATIVE CPT-94288 Removal of IUD 15:07:39 SENIOR PATIENT ACCOUNT REPRESENTATIVE CPT-59470 TB Tubersol 12:09:32 CDT CPT-22718 TB Tubersol 13:55:43 CDT
--- OUTSIDE RECORDS SUMMARY | 2020-03-03 08:14 | XMS REPORT | Clinical Summary ---
[...] CAPS 1 po qd CETIRIZINE HC L [id number] Active Jillina Frazell ZIGZAG TUNNEL ELASTIC OPERATOR Active AZITHROMYCIN 250 MG TABS 2 po qd x 1 day, then 1 po qd x 4 days AZITHROMYCIN 99783446487 Active Jillina Frazelanette ZIGZAG TUNNEL ELASTIC OPERATOR A ctive PREDNISONE 20 MG TAB 2 tabs daily for 3 days, 1 t ab daily for 3 days, 1/2 tab daily for 2 days PREDNISONE 56512545052 Active Jessica Heaton ZIGZAG TUNNEL ELASTIC OPERATOR Active MACROBID 100 MG CAP 1 cap by mouth twice daily NITROFURANTOIN MONOHYD MACRO 03489646141 Active Myrna Roberto MD Active PROMETHAZINE HCL 25 MG TABS 1 four times a day as needed for vomiting PROMETHAZINE HCL 14948603461 No Longer Active Myrna Roberto MD Active BACTRIM DS 800-160 MG TABS 1 twice a day SULFAMETHOXAZOLE-TRIMETHOPRIM 69985656587 No Longer Active Myrna Roberto MD Active VICKS DAYQUIL SEVERE COLD/FLU TABS 1 tab every 6 hours prn 12/10 [id number]-[id number]-APAP TABS 85221670980 No Longer Active Myrna leigh MD Active GUAIFENESIN-CODEINE 100-10 MG/5ML ORAL SYRP 2 tsp every 6 hours prn GUAIFENESIN-CODEINE 55879273371 No Longer Active Myrna Roberto MD Active NAPROXEN 500 MG TAB one tab PO BID NAPROXEN 332 00462729 No Longer Active Myrna Roberto MD Active LOMOTIL 2.5-0.025 MG TABS 1 to 2 four times a day as needed for diarrhea DIPHENOXYLATE-ATROPINE 64031170449 Active Rich mcintosh MD Active AUGMENTIN 875-125 MG TAB 1 tab by mouth twice daily with food 08/12/16 AMOXICILLIN-POT CLAVULANATE 62446881797 No Longer Active Liliana Estrada MD PhD Active CYCLOBENZAPRINE HCL 10 MG TABS 1/2 - 1 tablet by mouth three times daily as needed for muscle spasm/pain CYCLOBENZAPRINE HCL 76365 675704 Active Liliana Estrada MD PhD Active AMOXICILLIN 500 MG CAP 1 tab by mouth 3 times daily 08/12/16 AMOXICILLIN 70601139006 No Longer Active Liliana Estrada MD PhD Acti ve TESSALON PERLES 100 MG CAP 1 tablet by mouth 3 times daily 11/01 BENZONATATE 86452858437 No Longer Active Liliana Estrada MD PhD Active FLAGYL 500 MG TAB 1 tablet by mouth two times daily 20 07/11/29 METRONIDAZOLE 22359849391 No Longer Active Nilam Weber Active ZITHROMAX 250 MG TAB 2 po today, then 1 po q days 2-5 AZITHROMYCIN 68008963945 No Longer Active Arie Casper MD Acti ve VITAMINS 0.8 MG TABS take 1 tab po qday 08/08 [id number]-FA 11983188890 No Longer Active Arie Casper MD Active IBUPROFEN 800 MG TABS take one po Q 8 hours IBU PROFEN 46261857657 No Longer Active Arie Casper MD Active [facility] TUSSIN COUGH/COLD CF 5-10-100 MG/5ML LIQD 2 teaspoons ev eliud 4 hours [id number]-QN-TA 34749942033 No Longer Active Blaine Casper MD Active COMTREX COLD/COUGH DAY/NITE MS 5-2-10-325 MG MISC 2 caps deja ry 4 hours [id number]-DJ-APAP 99710207753 No Longer Active Da vimason Casper MD Active CHLORASEPTIC MAX SORE THROAT 15-10 MG LOZG 1 every 2 hours prn 2 BENZOCAINE-MENTHOL 58243924999 No Longer Active Arie Marcelo Active PREDNISONE 20 MG TAB 2 tabs daily for 3 days, 1 t ab daily for 3 days, 1/2 tab daily for 2 days PREDNISONE 66791282040 No Longer Active Jose Zhong MD Active AZITHROMYCIN 250 MG TABS 2 po qd x 1 day, then 1 po qd x 4 days AZITHROMYCIN 04483263092 No Longer Active Jose Zhong MD Active ZOFRAN ODT 4 MG TBDP 1 po q6hr PRN Nausea ONDAN SETRON 87486377092 No Longer Active Rich Rosales MD Active ZOFRAN 4 MG TABS 1 tablet every 4 hours ONDANSE JERRELL HCL 80451148496 No Longer Active Rich Rosales MD Active MUCINEX 600 MG EQ50F-ALI Take 1-2 tablets every 12 hours GUAIFENESIN 91362635440 No Longer Active Rich Rosales MD Activ e BACTRIM 400-80 MG TABS take one po BID SULFAMETHOXAZOLE-TRIMETHOPRIM 88290500566 No Longer Active Abelardo HERNANDEZ Active AZITHROMYCIN 500 MG TABS 1 PO q day x 6 days AZ ITHROMYCIN 18579077281 No Longer Active Tin HERNANDEZ Active ZITHROMAX 250 MG TAB 2 po today, then 1 po q days 2-5 AZITHROMYCIN 02102206386 No Longer Active Arie Casper MD Acti ve ZITHROMAX 250 MG TAB 2 po today, then 1 po q days 2-5 AZITHROMYCIN 01213506704 No Longer Active Arie Casper MD Acti ve AMOXICILLIN 500 MG CAP 1 tab by mouth 3 times daily 20 09/23/20 AMOXICILLIN 26388793336 No Longer Active Arie Casper MD Acti ve BACTRIM DS 800-160 MG TAB 1 tab by mouth twice daily 2 TRIMETHOPRIM-SULFAMETHOXAZOLE 53172856772 No Longer Active Arie Casper MD Active AMOXICILLIN 500 MG TABS take 1 tab po TID AMOXI CILLIN 30427847274 No Longer Active Arie Casper MD Active BACTRIM DS 800-160 MG TAB 1 tab by mouth twice daily 2 BACTRIM DS 800-160 MG TAB TRIMETHOPRIM-SULFAMETHOXAZOLE Inac tive MUCINEX 600 MG QY12K-CLR Take 1-2 tablets every 12 hours MUCINEX 600 MG [id number] GUAIFENESIN Inactive ZOFRAN 4 MG TABS 1 tablet every 4 hours ZOFRAN 4 MG TABS 810788 ONDANSETRON HCL Inactive ZOFRAN ODT 4 MG TBDP 1 po q6hr PRN Nausea ZOFRAN ODT 4 MG TBDP 705391 ONDANSETRON Inactive CHLORASEPTIC MAX SORE THROAT 15-10 MG LOZG 1 every 2 hours prn 2 /04/30 CHLORASEPTIC MAX SORE THROAT 15-10 MG LOZG BENZO ARINA-MENTHOL Inactive COMTREX COLD/COUGH DAY/NITE MS 5-2-10-325 MG MISC 2 caps deja ry 4 hours COMTREX COLD/COUGH DAY/NITE MS 5-2-10-325 MG MIS C [id number]-APAP Inactive [facility] TUSSIN COUGH/COLD CF 5-10-100 MG/5ML LIQD 2 teaspoons ev eliud 4 hours [facility]S TUSSIN COUGH/COLD CF 5-10-100 MG/5ML LIQD [id number]-KF Inactive IBUPROFEN 800 MG TABS take one po Q 8 hours IBUPROFEN 800 MG TABS 764249 IBUPROFEN Inactive VITAMINS 0.8 MG TABS take 1 tab po qday 08/08 VITAMINS 0.8 MG TABS QKRIIVPR-CNR-II-FA Inactive TESSALON PERLES 100 MG CAP 1 tablet by mouth 3 times daily 11/01 TESSALON PERLES 100 MG CAP 271373 BENZONATATE Inact zaid AMOXICILLIN 500 MG CAP 1 tab by mouth 3 times daily 08/12/16 AMOXICILLIN 500 MG CAP 475232 AMOXICILLIN Inactive GUAIFENESIN-CODEINE 100-10 MG/5ML ORAL SYRP 2 tsp every 6 hours prn GUAIFENESIN-CODEINE 100-10 MG/5ML ORAL SYRP 767339 GUAIFENESIN-CODEINE Inactive VICKS DAYQUIL SEVERE COLD/FLU TABS 1 tab every 6 hours prn 12/10 VICKS DAYQUIL SEVERE COLD/FLU TABS PHENYLEPHRINE -DM-GG-APAP TABS Inactive BACTRIM DS 800-160 MG TABS 1 twice a day BACTRIM DS 800- 160 MG TABS SULFAMETHOXAZOLE-TRIMETHOPRIM Inactive PROMETHAZINE HCL 25 MG TABS 1 four times a day as needed for vomiting PROMETHAZINE HCL 25 MG TABS 304588 PROMETHAZINE HCL Inactive AMOXICILLIN 500 MG TABS take 1 tab po TID AMOXICILLIN 500 MG TABS 936410 AMOXICILLIN Inactive AMOXICILLIN 500 MG CAP 1 tab by mouth 3 times daily 09/23/20 AMOXICILLIN 500 MG CAP 840630 AMOXICILLIN Inactive ZITHROMAX 250 MG TAB 2 po today, then 1 po q days 2-5 ZITHROMAX 250 MG TAB 6945689 AZITHROMYCIN Inactive ZITHROMAX 250 MG TAB 2 po today, then 1 po q days 2-5 ZITHROMAX 250 MG TAB 1728747 AZITHROMYCIN Inactive AZITHROMYCIN 500 MG TABS 1 PO q day x 6 days 3 AZITHROMYCIN 500 MG TABS 9509525 AZITHROMYCIN Inactive BACTRIM 400-80 MG TABS take one po BID BA CTRIM 400-80 MG TABS 037101 SULFAMETHOXAZOLE-TRIMETHOPRIM Inactive AZITHROMYCIN 250 MG TABS 2 po qd x 1 day, then 1 po qd x 4 days AZITHROMYCIN 250 MG TABS 5842650 AZITHROMYCIN Inactiv e PREDNISONE 20 MG TAB 2 tabs daily for 3 days, 1 t ab daily for 3 days, 1/2 tab daily for 2 days PREDNISONE 20 MG TAB 615790 PREDNISON E Inactive ZITHROMAX 250 MG TAB 2 po today, then 1 po q days 2-5 ZITHROMAX 250 MG TAB 3809200 AZITHROMYCIN Inactive FLAGYL 500 MG TAB 1 tablet by mouth two times daily 07/11/29 FLAGYL 500 MG TAB 965262 METRONIDAZOLE Inactive AUGMENTIN 875-125 MG TAB 1 tab by mouth twice daily with food 08/12/16 AUGMENTIN 875-125 MG TAB 428369 AMOXICILLIN-POT CLAVULA ANGELO Inactive NAPROXEN 500 MG TAB one tab PO BID NAPROXEN 500 MG TAB 551259 NAPROXEN Inactive Advance Directives Directive Description Start [...] immunization #2 Historical DPT immunization #5 DTaP DPT immunization #4 DTaP oral polio vaccine [...] mm Lab Report: CBC W/DIFF - Hematology mean corpuscular hemoglobin, RBC 27.5 pg 27. 0-31.2 mean corpuscular hemoglobin concentration, RBC 33.2 G/DL % 31.8-35.4 red blood cell distribution width 13.5 % 11 .6-14.8 platelet count 214 10^3/MM^3 10*3/mm3 565-807 5408/01/08 monocytes as percent of blood leukocytes 12.7 % 1.7-9.3 neutrophils as percent of blood leukocytes 54.8 % 42.2-75.2 leukocyte count, blood 4.4 10^3/MM^3 10*3/mm3 4.6-10.2 mean corpuscular volume, RBC 83 fL 80-97 hematocrit, blood 40.7 % 36.0-46.0 hemoglobin, blood 13.5 g/dL 12.0-16.0 erythrocyte (RBC) count 4.92 10^6/MM^3 10*6/mm3 4.04-5.4 8 lymphocytes as percent of blood leukocytes 28.4 % 20.5-51.1 Lab Report: Chlamydia/GC APTIMA/[id number] - Lab chlamydia DNA probe NOT DETECTED NOT DETECTED Lab Report: Chlamydia/GC APTIMA/48002 - Microbiology Neisseria gonorrhoeae DNA probe NOT DETECTED NO T DETECTED Lab Report: HIV-1/2 Agn/Darcy/19221, HEPAT ITIS PANEL, ACUTE W/REFLE - Chemistry [...] Yellow Colorless;Lightyellow;St raw;Yellow appearance, urine Clear Clear pH, urine, semiquantitative 5.5 5.0-8.5 urine color Yellow Colorless;Lightyellow;St raw;Yellow appearance, urine Clear Clear specific gravity, urine 1.025 1.000-1.030 urobilinogen, urine, semiquantitative (dipstick) 0.2 Normal leukocyte esterase, urine, by dipstick Negative Negative nitrite, urine, semiquantitative Negative Neg ative urine color Yellow Colorless;Lightyellow;St raw;Yellow ketones, urine, by test strip Negative Negati ve bilirubin, urine Negative Negative glucose, urine, semiquantitative Negative Neg ative ketones, urine, by test strip Negative Negati ve bilirubin, urine Negative Negative glucose, urine, semiquantitative Negative Neg ative ketones, urine, by test strip Trace Negati ve bilirubin, urine Negative Negative glucose, urine, semiquantitative Negative Neg ative specific gravity, urine 1.020 1.000-1.030 pH, urine, semiquantitative 6.5 5.0-8.5 urobilinogen, urine, semiquantitative (dipstick) 0.2 Normal leukocyte esterase, urine, by dipstick Negative Negative nitrite, urine, semiquantitative Negative Neg ative appearance, urine Clear Clear specific gravity, urine >=1.030 1.000-1.030 pH, urine, semiquantitative 5.5 5.0-8.5 Encounters Code Encounter Date Provider Facility CPT-96787 Level 3 Est. Patient 14:18:20 CDT Rich Rosales MD [facility] CPT-63355 Level 4 Est. Patient 09:34:31 CDT Arie mcqueen MD [facility] CPT-41618 Level 3 Est. Patient 09:08:55 SINGLE WIRE SAW OPERATOR Liliana vincent MD PhD [facility] CPT-82659 Level 3 Est. Patient 16:44:07 SINGLE WIRE SAW OPERATOR Arie mcqueen MD [facility] CPT-29179 Level 3 Est. Patient 10:44:27 CDT Arie mcqueen MD [facility] CPT-71227 Level 3 Est. Patient 08:55:41 CDT Jose Zhong MD [facility] CPT-79587 Level 3 Est. Patient 18:37:31 CDT Liliana vincent MD PhD [facility] CPT-66905 Level 3 Est. Patient 14:28:23 CDT Abelardo HERNANDEZ [facility] CPT-22816 Level 3 Est. Patient 15:18:13 SINGLE WIRE SAW OPERATOR Arie mcqueen MD [facility] CPT-88563 Level 3 Est. Patient 10:11:29 SINGLE WIRE SAW OPERATOR Arie mcqueen MD [facility] CPT-43363 Level 3 Est. Patient 10:55:57 SINGLE WIRE SAW OPERATOR Jono black DO [facility] CPT-05580 Level 3 Est. Patient 17:29:05 CDT Arie mcqueen MD [facility] Procedures Code Procedure Name Date Entry Date Standard Desc ription CPT-OV Office Visit 11:12:01 CDT CPT-OV Office Visit 15:30:23 CDT CPT-66662 Sono pelvis non OB uterus ovaries cervix 15:50:44 CDT CPT-26020 Hand comp min 3V 16:42:32 CDT CPT-30993 Abd compl w upright 12:17:01 CDT CPT-92190 Nexplanon Placement 15:07:39 SINGLE WIRE SAW OPERATOR CPT-12550 Removal of IUD 15:07:39 SINGLE WIRE SAW OPERATOR CPT-38651 TB Tubersol 12:09:32 CDT CPT-61062 TB Tubersol 13:55:43 CDT
--- OUTSIDE RECORDS SUMMARY | 2020-03-03 08:14 | XMS REPORT | Clinical Summary ---
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.5 Active Roseann rCawford Accidents caused by hypodermic needle Post-op care [...] Generic Name NDC Status Provider Patient Instruction PROMETHAZINE HCL 25 MG TABS 1 four times a day as needed for vomiting PROMETHAZINE HCL 13638972089 No Longer Active Myrna Roberto MD Active BACTRIM DS 800-160 MG TABS 1 twice a day SULFAMETHOXAZOLE-TRIMETHOPRIM 67523741748 No Longer Active Myrna Roberto MD Active VICKS DAYQUIL SEVERE COLD/FLU TABS 1 tab every 6 hours prn 12/10 [id number]-[id number]-APAP TABS 88296359974 No Longer Active Myrna leigh MD Active GUAIFENESIN-CODEINE 100-10 MG/5ML ORAL SYRP 2 tsp every 6 hours prn GUAIFENESIN-CODEINE 91283106464 No Longer Active Myrna Roberto MD Active NAPROXEN 500 MG TAB one tab PO BID NAPROXEN 332 43599706 No Longer Active Myrna Roberto MD Active LOMOTIL 2.5-0.025 MG TABS 1 to 2 four times a day as needed for diarrhea DIPHENOXYLATE-ATROPINE 80963795421 Active Rich mcintosh MD Active AUGMENTIN 875-125 MG TAB 1 tab by mouth twice daily with food 08/12/16 AMOXICILLIN-POT CLAVULANATE 71899203205 No Longer Active Liliana Estrada MD PhD Active CYCLOBENZAPRINE HCL 10 MG TABS 1/2 - 1 tablet by mouth three times daily as needed for muscle spasm/pain CYCLOBENZAPRINE HCL 61334 287975 Active Liliana Estrada MD PhD Active AMOXICILLIN 500 MG CAP 1 tab by mouth 3 times daily 08/12/16 AMOXICILLIN 73501152349 No Longer Active Liliana Estrada MD PhD Acti ve TESSALON PERLES 100 MG CAP 1 tablet by mouth 3 times daily 11/01 BENZONATATE 86495871789 No Longer Active Liliana Estrada MD PhD Active FLAGYL 500 MG TAB 1 tablet by mouth two times daily 07/11/29 METRONIDAZOLE 37083733946 No Longer Active Nilam Raida Active ZITHROMAX 250 MG TAB 2 po today, then 1 po q days 2-5 AZITHROMYCIN 11026234420 No Longer Active Arie Casper MD Acti ve VITAMINS 0.8 MG TABS take 1 tab po qday 08/08 [id number]-PAV-XN-FA 91570509611 No Longer Active Arie Casper MD Active IBUPROFEN 800 MG TABS take one po Q 8 hours IBU PROFEN 68258217267 No Longer Active Arie Casper MD Active [facility] TUSSIN COUGH/COLD CF 5-10-100 MG/5ML LIQD 2 teaspoons ev eliud 4 hours QIWIYUGUDQWET-AZ-PM 73034295337 No Longer Active Blaine Casper MD Active COMTREX COLD/COUGH DAY/NITE MS 5-2-10-325 MG MISC 2 caps deja ry 4 hours LTOQYONWP-RLI-GP-APAP 35552299033 No Longer Active Da aleksandra Casper MD Active CHLORASEPTIC MAX SORE THROAT 15-10 MG LOZG 1 every 2 hours prn 2 BENZOCAINE-MENTHOL 11853787082 No Longer Active Arie Marcelo Active PREDNISONE 20 MG TAB 2 tabs daily for 3 days, 1 t ab daily for 3 days, 1/2 tab daily for 2 days PREDNISONE 07492538530 No Longer Active Jose Zhong MD Active AZITHROMYCIN 250 MG TABS 2 po qd x 1 day, then 1 po qd x 4 days AZITHROMYCIN 96426538543 No Longer Active Jose Zhong MD Active ZOFRAN ODT 4 MG TBDP 1 po q6hr PRN Nausea ONDAN SETRON 02813890628 No Longer Active Rich Rosales MD Active ZOFRAN 4 MG TABS 1 tablet every 4 hours ONDANSE JERRELL HCL 29372506023 No Longer Active Rich Rosales MD Active MUCINEX 600 MG NM22P-OPQ Take 1-2 tablets every 12 hours GUAIFENESIN 79494614636 No Longer Active Rich Rosales MD Activ e BACTRIM 400-80 MG TABS take one po BID SULFAMETHOXAZOLE-TRIMETHOPRIM 07082145398 No Longer Active Abelardo HERNANDEZ Active AZITHROMYCIN 500 MG TABS 1 PO q day x 6 days AZ ITHROMYCIN 84782402154 No Longer Active Tin HERNANDEZ Active ZITHROMAX 250 MG TAB 2 po today, then 1 po q days 2-5 AZITHROMYCIN 33311174545 No Longer Active Arie Casper MD Acti ve ZITHROMAX 250 MG TAB 2 po today, then 1 po q days 2-5 AZITHROMYCIN 78261259351 No Longer Active Arie Casper MD Acti ve AMOXICILLIN 500 MG CAP 1 tab by mouth 3 times daily 09/23/20 AMOXICILLIN 75434770045 No Longer Active Arie Casper MD Acti ve BACTRIM DS 800-160 MG TAB 1 tab by mouth twice daily 2 TRIMETHOPRIM-SULFAMETHOXAZOLE 04738258762 No Longer Active Arie Casper MD Active AMOXICILLIN 500 MG TABS take 1 tab po TID AMOXI CILLIN 63807154935 No Longer Active Arie Casper MD Active BACTRIM DS 800-160 MG TAB 1 tab by mouth twice daily 2 BACTRIM DS 800-160 MG TAB TRIMETHOPRIM-SULFAMETHOXAZOLE Inac tive MUCINEX 600 MG [id number] Take 1-2 tablets every 12 hours MUCINEX 600 MG IJ88E-PAN GUAIFENESIN Inactive ZOFRAN 4 MG TABS 1 tablet every 4 hours ZOFRAN 4 MG TABS 408735 ONDANSETRON HCL Inactive ZOFRAN ODT 4 MG TBDP 1 po q6hr PRN Nausea ZOFRAN ODT 4 MG TBDP 584464 ONDANSETRON Inactive CHLORASEPTIC MAX SORE THROAT 15-10 MG LOZG 1 every 2 hours prn 2 CHLORASEPTIC MAX SORE THROAT 15-10 MG LOZG BENZO ARINA-MENTHOL Inactive COMTREX COLD/COUGH DAY/NITE MS 5-2-10-325 MG MISC 2 caps deja ry 4 hours COMTREX COLD/COUGH DAY/NITE MS 5-2-10-325 MG MIS C [id number]-[id number]-APAP Inactive [facility]S TUSSIN COUGH/COLD CF 5-10-100 MG/5ML LIQD 2 teaspoons ev eliud 4 hours [facility]S TUSSIN COUGH/COLD CF 5-10-100 MG/5ML LIQD [id number] Inactive IBUPROFEN 800 MG TABS take one po Q 8 hours IBUPROFEN 800 MG TABS 217910 IBUPROFEN Inactive VITAMINS 0.8 MG TABS take 1 tab po qday 08/08 VITAMINS 0.8 MG TABS [id number]-MIW-ES-FA Inactive TESSALON PERLES 100 MG CAP 1 tablet by mouth 3 times daily 11/01 TESSALON PERLES 100 MG CAP 168101 BENZONATATE Inact zaid AMOXICILLIN 500 MG CAP 1 tab by mouth 3 times daily 08/12/16 AMOXICILLIN 500 MG CAP 089869 AMOXICILLIN Inactive GUAIFENESIN-CODEINE 100-10 MG/5ML ORAL SYRP 2 tsp every 6 hours prn GUAIFENESIN-CODEINE 100-10 MG/5ML ORAL SYRP 093654 GUAIFENESIN-CODEINE Inactive VICKS DAYQUIL SEVERE COLD/FLU TABS 1 tab every 6 hours prn 12/10 VICKS DAYQUIL SEVERE COLD/FLU TABS PHENYLEPHRINE -DM-GG-APAP TABS Inactive BACTRIM DS 800-160 MG TABS 1 twice a day BACTRIM DS 800- 160 MG TABS SULFAMETHOXAZOLE-TRIMETHOPRIM Inactive PROMETHAZINE HCL 25 MG TABS 1 four times a day as needed for vomiting PROMETHAZINE HCL 25 MG TABS 725638 PROMETHAZINE HCL Inactive AMOXICILLIN 500 MG TABS take 1 tab po TID AMOXICILLIN 500 MG TABS 258318 AMOXICILLIN Inactive AMOXICILLIN 500 MG CAP 1 tab by mouth 3 times daily 09/23/20 AMOXICILLIN 500 MG CAP 172875 AMOXICILLIN Inactive ZITHROMAX 250 MG TAB 2 po today, then 1 po q days 2-5 ZITHROMAX 250 MG TAB 7032608 AZITHROMYCIN Inactive ZITHROMAX 250 MG TAB 2 po today, then 1 po q days 2-5 ZITHROMAX 250 MG TAB 7640007 AZITHROMYCIN Inactive AZITHROMYCIN 500 MG TABS 1 PO q day x 6 days 3 AZITHROMYCIN 500 MG TABS 4299300 AZITHROMYCIN Inactive BACTRIM 400-80 MG TABS take one po BID BA CTRIM 400-80 MG TABS 805858 SULFAMETHOXAZOLE-TRIMETHOPRIM Inactive AZITHROMYCIN 250 MG TABS 2 po qd x 1 day, then 1 po qd x 4 days AZITHROMYCIN 250 MG TABS 9877932 AZITHROMYCIN Inactiv e PREDNISONE 20 MG TAB 2 tabs daily for 3 days, 1 t ab daily for 3 days, 1/2 tab daily for 2 days PREDNISONE 20 MG TAB 589003 PREDNISON E Inactive ZITHROMAX 250 MG TAB 2 po today, then 1 po q days 2-5 ZITHROMAX 250 MG TAB 9594176 AZITHROMYCIN Inactive FLAGYL 500 MG TAB 1 tablet by mouth two times daily 07/11/29 FLAGYL 500 MG TAB 135904 METRONIDAZOLE Inactive AUGMENTIN 875-125 MG TAB 1 tab by mouth twice daily with food 08/12/16 AUGMENTIN 875-125 MG TAB 355414 AMOXICILLIN-POT CLAVULA ANGELO Inactive NAPROXEN 500 MG TAB one tab PO BID NAPROXEN 500 MG TAB 864235 NAPROXEN Inactive Advance Directives Directive Description Start [...] 214 10^3/MM^3 10*3/mm3 142-424 Lab Report: Chlamydia/GC APTIMA/44046 - Lab chlamydia DNA probe NOT DETECTED NOT DETECTED Lab Report: Chlamydia/GC APTIMA/40552 - Microbiology Neisseria gonorrhoeae DNA probe NOT DETECTED NO T DETECTED Lab Report: HIV-1/2 Agn/Darcy/03739, HEPAT ITIS PANEL, ACUTE W/REFLE - Chemistry [...] 5.0-8.5 Encounters Code Encounter Date Provider Facility CPT-95378 Level 3 Est. Patient 14:18:20 CDT Rich Rosales MD [facility] CPT-10854 Level 4 Est. Patient 09:34:31 CDT Arie mcqueen MD [facility] CPT-96388 Level 3 Est. Patient 09:08:55 CLOTH STRETCHER Liliana vincent MD PhD [facility] CPT-99453 Level 3 Est. Patient 16:44:07 CLOTH STRETCHER Arie mcqueen MD [facility] CPT-05088 Level 3 Est. Patient 10:44:27 CDT Arie mcqueen MD [facility] CPT-34044 Level 3 Est. Patient 08:55:41 CDT Jose Zhong MD [facility] CPT-50360 Level 3 Est. Patient 18:37:31 CDT Liliana vincent MD PhD [facility] CPT-64916 Level 3 Est. Patient 14:28:23 CDT Abelardo HERNANDEZ [facility] CPT-99838 Level 3 Est. Patient 15:18:13 CLOTH STRETCHER Arie mcqueen MD [facility] CPT-87094 Level 3 Est. Patient 10:11:29 CLOTH STRETCHER Arie mcqueen MD [facility] CPT-48249 Level 3 Est. Patient 10:55:57 CLOTH STRETCHER Jono Cheema ee DO [facility] CPT-90359 Level 3 Est. Patient 17:29:05 CDT Arie mcqueen MD [facility] Procedures Code Procedure Name Date Entry Date Standard Desc ription CPT-OV Office Visit 11:12:01 CDT CPT-OV Office Visit 15:30:23 CDT CPT-16435 Sono pelvis non OB uterus ovaries cervix 15:50:44 CDT CPT-74962 Hand comp min 3V 16:42:32 CDT CPT-05840 Abd compl w upright 12:17:01 CDT CPT-74396 Nexplanon Placement 15:07:39 CLOTH STRETCHER CPT-55701 Removal of IUD 15:07:39 CLOTH STRETCHER CPT-49424 TB Tubersol 12:09:32 CDT CPT-73926 TB Tubersol 13:55:43 CDT
--- OUTSIDE RECORDS SUMMARY | 2020-03-03 08:14 | XMS REPORT | Clinical Summary ---
Author Author Admin, Diamante Marcelo Organization [facility] Address Unknown Phone Unavailable Allergies, Adverse Reactions, [...] site Abdominal pain 789.00 Active Brii Larson [employer] SUPERVISOR Abdominal pain, unspecified site Diarrhea 787.91 [...] cute pharyngitis Nausea 787.02 Active Brii Larson [employer] SUPER[employer]OR Nausea alone URI 465.9 Active Jono [...] Anxiety with depression 300.4 Active Glenn Larson [employer] SUPERVISOR Dysthymic disorder BREAST CANCER ICD-V16.3 Inactive Jose Marcelo FH COLON CANCER ICD-V16.0 Inactive Jose Zhong MD FH DIABETES ICD-V18.0 Inactive Jose Zhnog MD 201 [...] tablet by mouth daily SERTRA LINE HCL 68105911778 Active Brii Larson APRN Active LOMOTIL 2.5-0.025 MG TAB 1 tab po four times a day as needed for diarrhea DIPHENOXYLATE-ATROPINE 41302302937 Active Brii Larson APRN Active ZITHROMAX Z-EMIL 250 MG TABS 2 today, then 1 daily for 4 days 201 03/31/18 AZITHROMYCIN 05794994133 No Longer Active Arie Casper MD Active ALPRAZOLAM 0.25 MG TAB 1 tablet by mouth every 8 hours as ne eded for stress ALPRAZOLAM 54744775975 Active Brii Larson APRN Active PROTONIX 40 MG ORAL TBEC 1 po q a.m. PANTOPRAZO LE SODIUM 36032821426 Active Carline Ochoa RPT,RMA Active PREDNISONE 20 MG TAB 2 tabs daily for 3 days, 1 t ab daily for 3 days, 1/2 tab daily for 2 days PREDNISONE 63063377508 No Longer Active Biri Larson APRN Active PREDNISONE 20 MG TAB 1 tablet twice daily for 2 d ays, then 1 tablet once daily for 2 days PREDNISONE 55012886359 No Longer Active Brii Larson APRN Active FLONASE 50 MCG/ACT SUSP 1 spray each nostril twice d aily for allergies and runny nose until gone FLUTICASONE PROPIONATE Active Jono Gagnon DO Active PROMETHAZINE HCL 12.5 MG TABS 1 tablet by mouth every 6 hours as needed for nausea/vomiting PROMETHAZINE HCL 53653962334 No Longe r Active Jono Gagnon DO Active CITRATE OF MAGNESIA ORAL SOLN 1 bottle today for constipation 20 07/10/15 MAGNESIUM CITRATE 74624623780 No Longer Active Jono Gagnon DO Active ZOFRAN 4 MG ORAL TABS 1 TAB PO Q 6 HRS PRN NAUSEA 2014 ONDANSETRON HCL 65438535128 No Longer Active Brii Larson APRN A ctive LOMOTIL 2.5-0.025 MG TAB 1 to 2 four times a day as needed f or diarrhea DIPHENOXYLATE-ATROPINE 79879141123 No Longer Active January Larson APRN Active AMOXICILLIN 500 MG TABS 2 tabs twice a day for 10 days AMOXICILLIN 72917162388 No Longer Active Brii Larson APRN Acti ve NEXPLANON IMPL ETONOGESTREL IMPL 86884510585 Active Rich Rosales MD Active CYCLOBENZAPRINE HCL 10 MG TABS 1/2 - 1 tablet by mouth three times daily as needed for muscle spasm/pain CYCLOBENZAPRINE HCL 36567329368 No Longer Active Arie Casper MD Active LOMOTIL 2.5-0.025 MG TABS 1 to 2 four times a day as needed for diarrhea DIPHENOXYLATE-ATROPINE 52011544721 No Longer Active Mason Casper MD Active MACROBID 100 MG CAP 1 cap by mouth twice daily NITROFURANTOIN MONOHYD MACRO 19863639860 No Longer Active Arie Casper MD Active ZYRTEC ALLERGY 10 MG CAPS 1 po qd CETIRIZINE HCL 03307675340 No Longer Active Arie Casper MD Active AZITHROMYCIN 250 MG TABS 2 po qd x 1 day, then 1 po qd x 4 days AZITHROMYCIN 92295618328 No Longer Active Jillina Frazell [employer] SUPER[employer]OR Active PREDNISONE 20 MG TAB 2 tabs daily for 3 days, 1 t ab daily for 3 days, 1/2 tab daily for 2 days PREDNISONE 10420731039 No Longer Active Jillina Frazell [employer] SUPER[employer]OR Active PROMETHAZINE HCL 25 MG TABS 1 four times a day as needed for vomiting PROMETHAZINE HCL 72993702850 No Longer Active Myrna Roberto MD Active BACTRIM DS 800-160 MG TABS 1 twice a day SULFAMETHOXAZOLE-TRIMETHOPRIM 46936467386 No Longer Active Myrna Roberto MD Active VICKS DAYQUIL SEVERE COLD/FLU TABS 1 tab every 6 hours prn 12/10 [id number]-[id number]-APAP TABS 60865700866 No Longer Active Myrna leigh MD Active GUAIFENESIN-CODEINE 100-10 MG/5ML ORAL SYRP 2 tsp every 6 hours prn GUAIFENESIN-CODEINE 00424065800 No Longer Active Myrna Roberto MD Active NAPROXEN 500 MG TAB one tab PO BID NAPROXEN 332 91475823 No Longer Active Myrna Roberto MD Active AUGMENTIN 875-125 MG TAB 1 tab by mouth twice daily with food 08/12/16 AMOXICILLIN-POT CLAVULANATE 65492130401 No Longer Active Liliana Estrada MD PhD Active AMOXICILLIN 500 MG CAP 1 tab by mouth 3 times daily 08/12/16 AMOXICILLIN 76700697071 No Longer Active Liliana Estrada MD PhD Acti ve TESSALON PERLES 100 MG CAP 1 tablet by mouth 3 times daily 11/01 BENZONATATE 12563155173 No Longer Active Liliana Estrada MD PhD Active FLAGYL 500 MG TAB 1 tablet by mouth two times daily 20 07/11/29 METRONIDAZOLE 47332410553 No Longer Active Nilam Weber Active ZITHROMAX 250 MG TAB 2 po today, then 1 po q days 2-5 AZITHROMYCIN 73505369688 No Longer Active Arie Casper MD Acti ve VITAMINS 0.8 MG TABS take 1 tab po qday 08/08 [id number] 16201023482 No Longer Active Arie Casper MD Active IBUPROFEN 800 MG TABS take one po Q 8 hours IBU PROFEN 78625440252 No Longer Active Arie Casper MD Active [facility] TUSSIN COUGH/COLD CF 5-10-100 MG/5ML LIQD 2 teaspoons ev eliud 4 hours [id number] 46497424201 No Longer Active Blaine Casper MD Active COMTREX COLD/COUGH DAY/NITE MS 5-2-10-325 MG MISC 2 caps deja ry 4 hours [id number] 41628282184 No Longer Active Da vimason Casper MD Active CHLORASEPTIC MAX SORE THROAT 15-10 MG LOZG 1 every 2 hours prn 2 BENZOCAINE-MENTHOL 13574934437 No Longer Active Arie Marcelo Active PREDNISONE 20 MG TAB 2 tabs daily for 3 days, 1 t ab daily for 3 days, 1/2 tab daily for 2 days PREDNISONE 27766789995 No Longer Active Jose Zhong MD Active AZITHROMYCIN 250 MG TABS 2 po qd x 1 day, then 1 po qd x 4 days AZITHROMYCIN 87292257747 No Longer Active Jose Zhong MD Active ZOFRAN ODT 4 MG TBDP 1 po q6hr PRN Nausea ONDAN SETRON 09752089078 No Longer Active Rich Rosales MD Active ZOFRAN 4 MG TABS 1 tablet every 4 hours ONDANSE JERRELL HCL 31394605679 No Longer Active Rich Rosales MD Active MUCINEX 600 MG [id number] Take 1-2 tablets every 12 hours GUAIFENESIN 79843315660 No Longer Active Rich Rosales MD Activ e BACTRIM 400-80 MG TABS take one po BID SULFAMETHOXAZOLE-TRIMETHOPRIM 83655041209 No Longer Active Abelardo HERNANDEZ Active AZITHROMYCIN 500 MG TABS 1 PO q day x 6 days AZ ITHROMYCIN 05983768073 No Longer Active Tin HERNANDEZ Active ZITHROMAX 250 MG TAB 2 po today, then 1 po q days 2-5 AZITHROMYCIN 12396205884 No Longer Active Arie Casper MD Acti ve ZITHROMAX 250 MG TAB 2 po today, then 1 po q days 2-5 AZITHROMYCIN 66645703019 No Longer Active Arie Casper MD Acti ve AMOXICILLIN 500 MG CAP 1 tab by mouth 3 times daily 20 09/23/20 AMOXICILLIN 15435002020 No Longer Active Arie Casper MD Acti ve BACTRIM DS 800-160 MG TAB 1 tab by mouth twice daily 2 TRIMETHOPRIM-SULFAMETHOXAZOLE 29563099361 No Longer Active Arie Casper MD Active AMOXICILLIN 500 MG TABS take 1 tab po TID AMOXI CILLIN 86523136906 No Longer Active Arie Casper MD Active BACTRIM DS 800-160 MG TAB 1 tab by mouth twice daily 2 BACTRIM DS 800-160 MG TAB 595770 TRIMETHOPRIM-SULFAMETHOXAZOLE Inac tive MUCINEX 600 MG [id number] Take 1-2 tablets every 12 hours MUCINEX 600 MG [id number]-IFD GUAIFENESIN Inactive ZOFRAN 4 MG TABS 1 tablet every 4 hours ZOFRAN 4 MG TABS 395328 ONDANSETRON HCL Inactive ZOFRAN ODT 4 MG TBDP 1 po q6hr PRN Nausea ZOFRAN ODT 4 MG TBDP 059247 ONDANSETRON Inactive CHLORASEPTIC MAX SORE THROAT 15-10 MG LOZG 1 every 2 hours prn 2 /04/30 CHLORASEPTIC MAX SORE THROAT 15-10 MG LOZG BENZO ARINA-MENTHOL Inactive COMTREX COLD/COUGH DAY/NITE MS 5-2-10-325 MG MISC 2 caps deja ry 4 hours COMTREX COLD/COUGH DAY/NITE MS 5-2-10-325 MG MIS C [id number] Inactive [facility] TUSSIN COUGH/COLD CF 5-10-100 MG/5ML LIQD 2 teaspoons ev eliud 4 hours [facility] TUSSIN COUGH/COLD CF 5-10-100 MG/5ML LIQD [id number] Inactive IBUPROFEN 800 MG TABS take one po Q 8 hours IBUPROFEN 800 MG TABS 255011 IBUPROFEN Inactive VITAMINS 0.8 MG TABS take 1 tab po qday 08/08 VITAMINS 0.8 MG TABS MLINKUEO-ULP-PI-FA Inactive TESSALON PERLES 100 MG CAP 1 tablet by mouth 3 times daily 11/01 TESSALON PERLES 100 MG CAP 385608 BENZONATATE Inact zaid AMOXICILLIN 500 MG CAP 1 tab by mouth 3 times daily 08/12/16 AMOXICILLIN 500 MG CAP 554034 AMOXICILLIN Inactive GUAIFENESIN-CODEINE 100-10 MG/5ML ORAL SYRP 2 tsp every 6 hours prn GUAIFENESIN-CODEINE 100-10 MG/5ML ORAL SYRP 753896 GUAIFENESIN-CODEINE Inactive VICKS DAYQUIL SEVERE COLD/FLU TABS 1 tab every 6 hours prn 12/10 VICKS DAYQUIL SEVERE COLD/FLU TABS PHENYLEPHRINE -DM-GG-APAP TABS Inactive BACTRIM DS 800-160 MG TABS 1 twice a day BACTRIM DS 800- 160 MG TABS 055239 SULFAMETHOXAZOLE-TRIMETHOPRIM Inactive PROMETHAZINE HCL 25 MG TABS 1 four times a day as needed for vomiting PROMETHAZINE HCL 25 MG TABS 494596 PROMETHAZINE HCL Inactive ZYRTEC ALLERGY 10 MG CAPS 1 po qd ZY RTEC ALLERGY 10 MG CAPS CETIRIZINE HCL Inactive MACROBID 100 MG CAP 1 cap by mouth twice daily MACROBID 100 MG CAP 2400175 NITROFURANTOIN MONOHYD MACRO Inactive LOMOTIL 2.5-0.025 MG TABS 1 to 2 four times a day as needed for diarrhea LOMOTIL 2.5-0.025 MG TABS 6260580 DIPHENOXYLATE-A TROPINE Inactive CYCLOBENZAPRINE HCL 10 MG TABS 1/2 - 1 tablet by mouth three times daily as needed for muscle spasm/pain CYCLOBENZAP RINE HCL 10 MG TABS 011532 CYCLOBENZAPRINE HCL Inactive AMOXICILLIN 500 MG TABS 2 tabs twice a day for 10 days AMOXICILLIN 500 MG TABS 603292 AMOXICILLIN Inactive LOMOTIL 2.5-0.025 MG TAB 1 to 2 four times a day as needed f or diarrhea LOMOTIL 2.5-0.025 MG TAB 7405225 DIPHENOXYLATE-AT ROPINE Inactive ZOFRAN 4 MG ORAL TABS 1 TAB PO Q 6 HRS PRN NAUSEA 2014 ZOFRAN 4 MG ORAL TABS 017148 ONDANSETRON HCL Inactive CITRATE OF MAGNESIA ORAL SOLN 1 bottle today for constipation 20 07/10/15 CITRATE OF MAGNESIA ORAL SOLN 8097013 MAGNESIUM CITRATE Inactive PROMETHAZINE HCL 12.5 MG TABS 1 tablet by mouth every 6 hours as needed for nausea/vomiting PROMETHAZINE HCL 12.5 MG TABS 128876 PROMETHAZINE HCL Inactive PREDNISONE 20 MG TAB 1 tablet twice daily for 2 d ays, then 1 tablet once daily for 2 days PREDNISONE 20 MG TAB 057871 PREDNISONE Inac tive AMOXICILLIN 500 MG TABS take 1 tab po TID AMOXICILLIN 500 MG TABS 022872 AMOXICILLIN Inactive AMOXICILLIN 500 MG CAP 1 tab by mouth 3 times daily 09/23/20 AMOXICILLIN 500 MG CAP 654695 AMOXICILLIN Inactive ZITHROMAX 250 MG TAB 2 po today, then 1 po q days 2-5 ZITHROMAX 250 MG TAB 5123327 AZITHROMYCIN Inactive ZITHROMAX 250 MG TAB 2 po today, then 1 po q days 2-5 ZITHROMAX 250 MG TAB 1910243 AZITHROMYCIN Inactive AZITHROMYCIN 500 MG TABS 1 PO q day x 6 days 3 AZITHROMYCIN 500 MG TABS 5416582 AZITHROMYCIN Inactive BACTRIM 400-80 MG TABS take one po BID BA CTRIM 400-80 MG TABS 965634 SULFAMETHOXAZOLE-TRIMETHOPRIM Inactive AZITHROMYCIN 250 MG TABS 2 po qd x 1 day, then 1 po qd x 4 days AZITHROMYCIN 250 MG TABS 6083330 AZITHROMYCIN Inactiv e PREDNISONE 20 MG TAB 2 tabs daily for 3 days, 1 t ab daily for 3 days, 1/2 tab daily for 2 days PREDNISONE 20 MG TAB 869287 PREDNISON E Inactive ZITHROMAX 250 MG TAB 2 po today, then 1 po q days 2-5 ZITHROMAX 250 MG TAB 8635185 AZITHROMYCIN Inactive FLAGYL 500 MG TAB 1 tablet by mouth two times daily 07/11/29 FLAGYL 500 MG TAB 071842 METRONIDAZOLE Inactive AUGMENTIN 875-125 MG TAB 1 tab by mouth twice daily with food 20 08/12/16 AUGMENTIN 875-125 MG TAB 656540 AMOXICILLIN-POT CLAVULA ANGELO Inactive NAPROXEN 500 MG TAB one tab PO BID NAPROXEN 500 MG TAB 820844 NAPROXEN Inactive PREDNISONE 20 MG TAB 2 tabs daily for 3 days, 1 t ab daily for 3 days, 1/2 tab daily for 2 days PREDNISONE 20 MG TAB 168869 PREDNISON E Inactive AZITHROMYCIN 250 MG TABS 2 po qd x 1 day, then 1 po qd x 4 days AZITHROMYCIN 250 MG TABS 8851950 AZITHROMYCIN Inactiv e PREDNISONE 20 MG TAB 2 tabs daily for 3 days, 1 t ab daily for 3 days, 1/2 tab daily for 2 days PREDNISONE 20 MG TAB 066569 PREDNISON E Inactive ZITHROMAX Z-EMIL 250 MG TABS 2 today, then 1 daily for 4 days 201 03/31/18 ZITHROMAX Z-EMIL 250 MG TABS 6805018 AZITHROMYCIN Inac tive Advance Directives Directive Description [...] Panel - Chemistry sodium, serum 136 mmol/L 798-503 0273/04/26 carbon dioxide, venous blood 29.9 mmol/L 21.0-32 [...] - Chem istry sodium, serum 139 mmol/L 441-930 7608/12/15 carbon dioxide, venous blood 30.2 mmol/L 21.0-32 [...] rapid strep method Negative Negative Lab Report: [facility] [place]/MI[place], [place] - Chemistry human chorionic gonadotropin , urine, qualitative (urine test) Negative Negative protein, total urine random Negative mg/dL Negative RBC, urine, dipstick Trace Negative Lab Report: [facility] [place]/MICRO, AUT[place] - Urinalysis urobilinogen, urine, [...] 5.0-8.5 Encounters Code Encounter Date Provider Facility CPT-28240 Level 3 Est. Patient 09:12:56 CDT Arie mcqueen MD [facility] CPT-29219 Level 3 Est. Patient 16:40:54 CDT Jose Zhong MD [facility] CPT-95797 Level 2 Est. Patient 13:01:13 CDT Brii Abhinav rizzo [employer] SUPERVISOR [facility]-94419 Level 3 Est. Patient 11:55:30 AGING BOX HAND Jono black DO [facility] CPT-44191 Level 3 Est. Patient 09:52:36 AGING BOX HAND Brii Abhinav rizzo [employer]PER[employer] SUPERVISOR [facility] CPT-46227 Level 3 Est. Patient 16:25:33 AGING BOX HAND Rich Rosales MD [facility] CPT-88855 Level 3 Est. Patient 20:33:55 CDT Arie mcqueen MD [facility] CPT-12545 Level 3 Est. Patient 14:18:20 CDT Rich Rosales MD [facility] CPT-16674 Level 4 Est. Patient 09:34:31 CDT Arie mcqueen MD [facility]-03278 Level 3 Est. Patient 09:08:55 AGING BOX HAND Liliana vincent MD PhD [facility] CPT-90079 Level 3 Est. Patient 16:44:07 AGING BOX HAND Arie mcqueen MD [facility] CPT-48473 Level 3 Est. Patient 10:44:27 CDT Arie mcqueen MD [facility] CPT-05683 Level 3 Est. Patient 08:55:41 CDT Jose Zhong MD [facility] CPT-31533 Level 3 Est. Patient 18:37:31 CDT Liliana vincent MD PhD [facility] CPT-95331 Level 3 Est. Patient 14:28:23 CDT Abelardo HERNANDEZ [facility] CPT-50595 Level 3 Est. Patient 15:18:13 AGING BOX HAND Arie mcqueen MD [facility] CPT-34713 Level 3 Est. Patient 10:11:29 AGING BOX HAND Arie mcqueen MD [facility] CPT-37914 Level 3 Est. Patient 10:55:57 AGING BOX HAND Jono black DO [facility] CPT-19583 Level 3 Est. Patient 17:29:05 CDT Arie mcqueen MD [facility] Procedures Code Procedure Name Date Entry Date Standard Desc ription CPT-09631 Abd compl w upright 09:07:26 AGING BOX HAND CPT-06961 Ear Wash 16:12:47 AGING BOX HAND CPT-OV Office Visit 11:12:01 CDT CPT-OV Office Visit 15:30:23 CDT CPT-11583 Sono pelvis non OB uterus ovaries cervix 15:50:44 CDT CPT-94120 Hand comp min 3V 16:42:32 CDT CPT-77810 Abd compl w upright 12:17:01 CDT CPT-59059 Nexplanon Placement 15:07:39 AGING BOX HAND CPT-20294 Removal of IUD 15:07:39 AGING BOX HAND CPT-87537 TB Tubersol 12:09:32 CDT CPT-42100 TB Tubersol 13:55:43 CDT
--- OUTSIDE RECORDS SUMMARY | 2020-03-03 08:15 | XMS REPORT | Clinical Summary ---
Author Author Admin, Diamante Marcelo Organization [email or web address] Address Unknown Phone Unavailable Allergies, Adverse Reactions, [...] in limb Sinusitis, acute 461.9 Resolved Liliana Etsrada MD PhD Acute sinusitis, unspecified Fever 780.60 [...] cute pharyngitis Nausea 787.02 Active Brii Larson BUILDING SUPERINTENDENT Nausea alone URI 465.9 Active Jono Gagnon DO Acu te upper respiratory infections of unspecified site Allergic rhinitis 477.9 Active Brii Christianson PRN Allergic rhinitis, cause unspecified Abdominal pain, right lower quadrant 789.03 Active Jose Zhong MD Abdominal pain, right lower quadrant Urinary frequency 788.41 Inactive Roseann Crawford Urinary frequency Urinary frequency 788.41 Active 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, 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 Urinary frequency Sinusitis - acute 461.9 Active Brii Christianson PRN Acute sinusitis, unspecified Anxiety with depression 300.4 Active Glenn Larson BUILDING SUPERINTENDENT Dysthymic disorder URI 465.9 Active Jono Gagnon DO Acu te upper respiratory infections of unspecified site Vaginal bleeding 623.8 Active Brii MARROQUIN RN Other specified noninflammatory disorders of vagina High risk sexual behavior V69.2 Active Arie Casper MD High-risk sexual behavior GERD 530.81 Active Arie Casper MD Esophageal reflux Encounter for surveillance of implantable subdermal contraceptiv e Active Brii Larson BUILDING SUPERINTENDENT Vaginal bleeding 623.8 Active Arie Casper MD [...] 4 hours as needed for cough GUAIFENESIN-CODEINE [id number] Active Blaine Casper MD Active ZITHROMAX Z-EMIL 250 MG ORAL TABLET 2 today, then 1 daily for 4 d ays AZITHROMYCIN 55976084922 Active Arie Casper MD Ac tive PROTONIX 40 MG ORAL TABLET DELAYED RELEASE 1 po q a.m. PANTOPRAZOLE SODIUM 58880895937 No Longer Active Arie Casper MD Active BACTRIM DS 800-160 MG ORAL TABLET 1 tab by mouth twice daily 201 05/02/30 TRIMETHOPRIM-SULFAMETHOXAZOLE 07329944097 No Longer Active R [facility] Ty Active NEXPLANON IMPLANT right arm subcutaneously ETONOGESTREL IMPL 34920266224 No Longer Active Brii Larson APRN Acti ve TUSSIONEX PENNKINETIC ER 10-8 MG/5ML ORAL SUSPENSION E XTENDED RELEASE 5ml po q12hr PRN Cough HYDROCOD POLST-CHLORPHEN POLST 5 7471008294 No Longer Active Brii Larson APRN Active CETIRIZINE HCL 10 MG ORAL TABLET 1 po qd PRN Allergies CETIRIZINE HCL 87990162431 No Longer Active Brii Larson APRN Ac tive PREDNISONE 20 MG ORAL TABLET 2 tabs daily for 3 days, 1 tab daily for 3 days, 1/2 tab daily for 2 days PREDNISONE 06809363046 No Longer Active Arie Casper MD Active LOMOTIL 2.5-0.025 MG ORAL TABLET 1 tab po four times a day as needed for diarrhea DIPHENOXYLATE-ATROPINE 52244904960 No Lo nger Active Arie Casper MD Active ZOLOFT 50 MG ORAL TABLET 1 tablet by mouth daily 12/08 SERTRALINE HCL 41552996999 No Longer Active Arie Casper MD Ac tive NAPROXEN 500 MG ORAL TABLET Take 1 tab BID NAPR OXEN 93336836204 No Longer Active Arie Casper MD Active CEFDINIR 300 MG ORAL CAPSULE 1 po BID x 10 days CEFDINIR 95592803576 No Longer Active Brii Larson APRN Active PREDNISONE 20 MG ORAL TABLET 1 tablet daily for airway inflammat ion PREDNISONE 68402219424 No Longer Active Biri Larson APRN Active CEFDINIR 300 MG ORAL CAPSULE 1 po BID x 10 days CEFDINIR 27605312343 No Longer Active Jono Gagnon DO Active FLONASE 50 MCG/ACT NASAL SUSPENSION 1 spray each nostr il twice daily for allergies and runny nose until gone FLUT ICASONE PROPIONATE 79727927116 No Longer Active Jono Gagnon DO Active ALPRAZOLAM 0.25 MG ORAL TABLET 1 tablet by mouth every 8 hours as needed for stress ALPRAZOLAM 33857583871 No Longer Active Jono Gagnon DO Active ZITHROMAX Z-EMIL 250 MG ORAL TABLET 2 today, then 1 daily for 4 d ays AZITHROMYCIN 91803119128 No Longer Active Arie Casper MD Active PREDNISONE 20 MG ORAL TABLET 2 tabs daily for 3 days, 1 tab daily for 3 days, 1/2 tab daily for 2 days PREDNISONE 01369106934 No Longer Active Brii Larson APRN Active PREDNISONE 20 MG ORAL TABLET 1 tablet twice daily for 2 days, then 1 tablet once daily for 2 days PREDNISONE 24974806697 No Longer Active Brii Larson APRN Active PROMETHAZINE HCL 12.5 MG ORAL TABLET 1 tablet by mouth every 6 hours as needed for nausea/vomiting PROMETHAZINE HCL 99047875503 No L onger Active Jnoo Gagnon DO Active CITRATE OF MAGNESIA ORAL SOLUTION 1 bottle today for constipatio n MAGNESIUM CITRATE 81890849180 No Longer Active Jono Gagnon DO Active ZOFRAN 4 MG ORAL TABLET 1 TAB PO Q 6 HRS PRN NAUSEA 07/10/15 ONDANSETRON HCL 71545299106 No Longer Active Brii Larson APRN A ctive LOMOTIL 2.5-0.025 MG ORAL TABLET 1 to 2 four times a day as needed for diarrhea DIPHENOXYLATE-ATROPINE 52428604263 No Longer Active January Larson APRN Active AMOXICILLIN 500 MG ORAL TABLET 2 tabs twice a day for 10 days 20 07/09/11 AMOXICILLIN 83755519464 No Longer Active Brii Larson APRN Active CYCLOBENZAPRINE HCL 10 MG ORAL TABLET 1/2 - 1 tablet b y mouth three times daily as needed for muscle spasm/pain CYCLOBENZAPRINE HCL 33775308847 No Longer Active Arie Casper MD Active LOMOTIL 2.5-0.025 MG ORAL TABLET 1 to 2 four times a day as needed for diarrhea DIPHENOXYLATE-ATROPINE 50573745086 No Longer Active Fozia Casper MD Active MACROBID 100 MG ORAL CAPSULE 1 cap by mouth twice daily NITROFURANTOIN MONOHYD MACRO 86962396909 No Longer Active Arie Casper MD Active ZYRTEC ALLERGY 10 MG ORAL CAPSULE 1 po qd CE TIRIZINE HCL 59495921090 No Longer Active Arie Casper MD Active AZITHROMYCIN 250 MG ORAL TABLET 2 po qd x 1 day, then 1 po q d x 4 days AZITHROMYCIN 04680282101 No Longer Active Jillarlen Fra naomi BUILDING SUPERINTENDENT Active PREDNISONE 20 MG ORAL TABLET 2 tabs daily for 3 days, 1 tab daily for 3 days, 1/2 tab daily for 2 days PREDNISONE 82956292064 No Longer Active Jillina Fradeepl BUILDING SUPERINTENDENT Active PROMETHAZINE HCL 25 MG ORAL TABLET 1 four times a day as nee ded for vomiting PROMETHAZINE HCL 10552774017 No Longer Active Myrna Roberto MD Active BACTRIM DS 800-160 MG ORAL TABLET 1 twice a day 05/30 SULFAMETHOXAZOLE-TRIMETHOPRIM 82902406520 No Longer Active Myrna Roberto MD Active VICKS DAYQUIL SEVERE COLD/FLU TABLET 1 tab every 6 hours prn 201 02/22/17 [id number] TABS 74208265036 No Longer Active Chris Roberto MD Active GUAIFENESIN-CODEINE 100-10 MG/5ML ORAL SYRUP 2 tsp every 6 hours prn GUAIFENESIN-CODEINE 79409333521 No Longer Active Myrna Roberto MD Active NAPROXEN 500 MG ORAL TABLET one tab PO BID NAPR OXEN 97348713450 No Longer Active Myrna Roberto MD Active AUGMENTIN 875-125 MG ORAL TABLET 1 tab by mouth twice daily with food AMOXICILLIN-POT CLAVULANATE 63230805527 No Longer Act zaid Liliana Estrada MD PhD Active AMOXICILLIN 500 MG ORAL CAPSULE 1 tab by mouth 3 times daily 201 02/21/05 AMOXICILLIN 37084216686 No Longer Active Liliana Estrada MD PhD Active TESSALON PERLES 100 MG ORAL CAPSULE 1 tablet by mouth 3 times da cory BENZONATATE 63334072577 No Longer Active Liliana Estrada MD PhD Active FLAGYL 500 MG ORAL TABLET 1 tablet by mouth two times daily 2014 METRONIDAZOLE 15956420969 No Longer Active Nilam Doran tive ZITHROMAX 250 MG ORAL TABLET 2 po today, then 1 po q days 2-5 20 06/08/16 AZITHROMYCIN 37397023717 No Longer Active Arie Casper MD Active VITAMINS 0.8 MG ORAL TABLET take 1 tab po qday [id number] 49727606744 No Longer Active Arie Casper MD Active IBUPROFEN 800 MG ORAL TABLET take one po Q 8 hours 201 02/01/16 IBUPROFEN 57768988112 No Longer Active Arie Casper MD Acti ve [facility] TUSSIN COUGH/COLD CF 5-10-100 MG/5ML ORAL LIQUID 2 teasp oons every 4 hours [id number] 56339330096 No Longer Active Blaine Casper MD Active COMTREX COLD/COUGH DAY/NITE MS 5-2-10-325 MG ORAL 2 caps deja ry 4 hours [id number] 45105884621 No Longer Active Landon Casper MD Active CHLORASEPTIC MAX SORE THROAT 15-10 MG MOUTH/THROAT LOZENGE 1 every 2 hours prn BENZOCAINE-MENTHOL 92355685501 No Longer Active Arie Casper MD Active PREDNISONE 20 MG ORAL TABLET 2 tabs daily for 3 days, 1 tab daily for 3 days, 1/2 tab daily for 2 days PREDNISONE 44128370279 No Longer Active Jose Zhong MD Active AZITHROMYCIN 250 MG ORAL TABLET 2 po qd x 1 day, then 1 po q d x 4 days AZITHROMYCIN 64995711502 No Longer Active Jose Mcwilliams MD Active ZOFRAN ODT 4 MG ORAL TABLET DISINTEGRATING 1 po q6hr PRN Nausea ONDANSETRON 40516274503 No Longer Active Rich Rosales MD Active ZOFRAN 4 MG ORAL TABLET 1 tablet every 4 hours ONDANSETRON HCL 01584542820 No Longer Active Rich Rosales MD Activ e MUCINEX 600 MG ORAL TABLET EXTENDED RELEASE 12 HOUR Ta ke 1-2 tablets every 12 hours GUAIFENESIN 76480704942 No Longer Active Rich Rosales MD Active BACTRIM 400-80 MG ORAL TABLET take one po BID SULFAMETHOXAZOLE-TRIMETHOPRIM 49396637128 No Longer Active Abelardo HERNANDEZ Active AZITHROMYCIN 500 MG ORAL TABLET 1 PO q day x 6 days 20 03/02/23 AZITHROMYCIN 76657401452 No Longer Active Tin HERNANDEZ Activ e ZITHROMAX 250 MG ORAL TABLET 2 po today, then 1 po q days 2-5 20 10/03/08 AZITHROMYCIN 89021859018 No Longer Active Arie Casper MD Active ZITHROMAX 250 MG ORAL TABLET 2 po today, then 1 po q days 2-5 20 09/23/25 AZITHROMYCIN 12776393211 No Longer Active Arie Casper MD Active AMOXICILLIN 500 MG ORAL CAPSULE 1 tab by mouth 3 times daily 201 11/24/09 AMOXICILLIN 87333827452 No Longer Active Arie Casper MD Active BACTRIM DS 800-160 MG ORAL TABLET 1 tab by mouth twice daily 201 11/03/14 TRIMETHOPRIM-SULFAMETHOXAZOLE 82712498873 No Longer Active Fozia Casper MD Active AMOXICILLIN 500 MG ORAL TABLET take 1 tab po TID 08/05 AMOXICILLIN 73516762531 No Longer Active Arie Casper MD Acti ve BACTRIM DS 800-160 MG ORAL TABLET 1 tab by mouth twice daily 201 11/03/14 BACTRIM DS 800-160 MG ORAL TABLET 973251 TRIMETHOPRIM-SULFAMETHOXAZOLE Inactive MUCINEX 600 MG ORAL TABLET EXTENDED RELEASE 12 HOUR Ta ke 1-2 tablets every 12 hours MUCINEX 600 MG ORAL TABLET EXTENDED RELEA SE 12 HOUR GUAIFENESIN Inactive ZOFRAN 4 MG ORAL TABLET 1 tablet every 4 hours ZOFRAN 4 MG ORAL TABLET 989196 ONDANSETRON HCL Inactive ZOFRAN ODT 4 MG ORAL TABLET DISINTEGRATING 1 po q6hr PRN Nausea ZOFRAN ODT 4 MG ORAL TABLET DISINTEGRATING 619058 ONDAN SETRON Inactive CHLORASEPTIC MAX SORE THROAT 15-10 MG MOUTH/THROAT LOZENGE 1 every 2 hours prn CHLORASEPTIC MAX SORE THROAT 15-10 MG MOUTH/THROAT LOZENGE BENZOCAINE-MENTHOL Inactive COMTREX COLD/COUGH DAY/NITE MS 5-2-10-325 MG ORAL 2 caps deja ry 4 hours COMTREX COLD/COUGH DAY/NITE MS 5-2-10-325 MG ORA L [id number] Inactive [facility] TUSSIN COUGH/COLD CF 5-10-100 MG/5ML ORAL LIQUID 2 teasp oons every 4 hours [facility] TUSSIN COUGH/COLD CF 5-10-100 MG/5ML ORAL LI QUID [id number] Inactive IBUPROFEN 800 MG ORAL TABLET take one po Q 8 hours 201 02/01/16 IBUPROFEN 800 MG ORAL TABLET 333556 IBUPROFEN Inactive VITAMINS 0.8 MG ORAL TABLET take 1 tab po qday VITAMINS 0.8 MG ORAL TABLET [id number] E-FA Inactive TESSALON PERLES 100 MG ORAL CAPSULE 1 tablet by mouth 3 times da cory TESSALON PERLES 100 MG ORAL CAPSULE 698883 BENZONATATE Inactive AMOXICILLIN 500 MG ORAL CAPSULE 1 tab by mouth 3 times daily 201 02/21/05 AMOXICILLIN 500 MG ORAL CAPSULE 601498 AMOXICILLIN Inactive GUAIFENESIN-CODEINE 100-10 MG/5ML ORAL SYRUP 2 tsp every 6 hours prn GUAIFENESIN-CODEINE 100-10 MG/5ML ORAL SYRUP 192139 GUAIFENESIN-CODEINE Inactive VICKS DAYQUIL SEVERE COLD/FLU TABLET 1 tab every 6 hours prn 201 02/22/17 VICKS DAYQUIL SEVERE COLD/FLU TABLET PHENYLEPHRI AR-FI-IH-APAP TABS Inactive BACTRIM DS 800-160 MG ORAL TABLET 1 twice a day 05/30 BACTRIM DS 800-160 MG ORAL TABLET 144148 SULFAMETHOXAZOLE-TRIMETHOPRIM Inactiv e PROMETHAZINE HCL 25 MG ORAL TABLET 1 four times a day as nee ded for vomiting PROMETHAZINE HCL 25 MG ORAL TABLET 957065 PROMETHAZINE HCL Inactive ZYRTEC ALLERGY 10 MG ORAL CAPSULE 1 po qd ZYRTEC ALLERGY 10 MG ORAL CAPSULE CETIRIZINE HCL Inactive MACROBID 100 MG ORAL CAPSULE 1 cap by mouth twice daily MACROBID 100 MG ORAL CAPSULE 8549757 NITROFURANTOIN MONOHYD MACRO In active LOMOTIL 2.5-0.025 MG ORAL TABLET 1 to 2 four times a day as needed for diarrhea LOMOTIL 2.5-0.025 MG ORAL TABLET 6847882 DIPHENOXYLATE-ATROPINE Inactive CYCLOBENZAPRINE HCL 10 MG ORAL TABLET 1/2 - 1 tablet b y mouth three times daily as needed for muscle spasm/pain CYCLOBEN ZAPRINE HCL 10 MG ORAL TABLET 266515 CYCLOBENZAPRINE HCL Inactive AMOXICILLIN 500 MG ORAL TABLET 2 tabs twice a day for 10 days 20 07/09/11 AMOXICILLIN 500 MG ORAL TABLET 646605 AMOXICILLIN I nactive LOMOTIL 2.5-0.025 MG ORAL TABLET 1 to 2 four times a day as needed for diarrhea LOMOTIL 2.5-0.025 MG ORAL TABLET 6066475 DIPHENOXYLATE-ATROPINE Inactive ZOFRAN 4 MG ORAL TABLET 1 TAB PO Q 6 HRS PRN NAUSEA 07/10/15 ZOFRAN 4 MG ORAL TABLET 006219 ONDANSETRON HCL Inactive CITRATE OF MAGNESIA ORAL SOLUTION 1 bottle today for constipatio n CITRATE OF MAGNESIA ORAL SOLUTION 4312902 MAGNESIUM CITR ATE Inactive PROMETHAZINE HCL 12.5 MG ORAL TABLET 1 tablet by mouth every 6 hours as needed for nausea/vomiting PROMETHAZINE HCL 12.5 MG ORA L TABLET 374734 PROMETHAZINE HCL Inactive PREDNISONE 20 MG ORAL TABLET 1 tablet twice daily for 2 days, then 1 tablet once daily for 2 days PREDNISONE 20 MG ORAL TABLET 279166 PREDNISONE Inactive ALPRAZOLAM 0.25 MG ORAL TABLET 1 tablet by mouth every 8 hours as needed for stress ALPRAZOLAM 0.25 MG ORAL TABLET 184601 ALPRA ZOLAM Inactive FLONASE 50 MCG/ACT NASAL SUSPENSION 1 spray each nostr il twice daily for allergies and runny nose until gone FLON ASE 50 MCG/ACT NASAL SUSPENSION 4257597 FLUTICASONE PROPIONATE Inactive PREDNISONE 20 MG ORAL TABLET 1 tablet daily for airway inflammat ion PREDNISONE 20 MG ORAL TABLET 218233 PREDNISONE [employer] ctive NAPROXEN 500 MG ORAL TABLET Take 1 tab BID NAPROXEN 500 MG ORAL TABLET 854892 NAPROXEN Inactive ZOLOFT 50 MG ORAL TABLET 1 tablet by mouth daily 12/08 ZOLOFT 50 MG ORAL TABLET 420629 SERTRALINE HCL Inactive LOMOTIL 2.5-0.025 MG ORAL TABLET 1 tab po four times a day as needed for diarrhea LOMOTIL 2.5-0.025 MG ORAL TABLET 0126066 DIPHENOXYLATE-ATROPINE Inactive CETIRIZINE HCL 10 MG ORAL TABLET 1 po qd PRN Allergies CETIRIZINE HCL 10 MG ORAL TABLET 2247292 CETIRIZINE HCL Inactiv e TUSSIONEX PENNKINETIC ER 10-8 MG/5ML ORAL SUSPENSION E XTENDED RELEASE 5ml po q12hr PRN Cough TUSSIONEX PENNKINETI C ER 10-8 MG/5ML ORAL SUSPENSION EXTENDED RELEASE HYDROCOD POLST-CHLORPHEN POLST I nactive NEXPLANON IMPLANT right arm subcutaneously NEXPLANON IMPLANT ETONOGESTREL IMPL Inactive PROTONIX 40 MG ORAL TABLET DELAYED RELEASE 1 po q a.m. PROTONIX 40 MG ORAL TABLET DELAYED RELEASE 078773 PANTOPRAZOLE SODI UM Inactive AMOXICILLIN 500 MG ORAL TABLET take 1 tab po TID 08/05 AMOXICILLIN 500 MG ORAL TABLET 030509 AMOXICILLIN Inactive AMOXICILLIN 500 MG ORAL CAPSULE 1 tab by mouth 3 times daily 201 11/24/09 AMOXICILLIN 500 MG ORAL CAPSULE 520202 AMOXICILLIN Inactive ZITHROMAX 250 MG ORAL TABLET 2 po today, then 1 po q days 2-5 20 09/23/25 ZITHROMAX 250 MG ORAL TABLET 432433 AZITHROMYCIN Arlen ctive ZITHROMAX 250 MG ORAL TABLET 2 po today, then 1 po q days 2-5 20 10/03/08 ZITHROMAX 250 MG ORAL TABLET 475178 AZITHROMYCIN Arlen ctive AZITHROMYCIN 500 MG ORAL TABLET 1 PO q day x 6 days 20 03/02/23 AZITHROMYCIN 500 MG ORAL TABLET 0287713 AZITHROMYCIN Inactive BACTRIM 400-80 MG ORAL TABLET take one po BID BACTRIM 400- 80 MG ORAL TABLET 737289 SULFAMETHOXAZOLE-TRIMETHOPRIM Inactive AZITHROMYCIN 250 MG ORAL TABLET 2 po qd x 1 day, then 1 po q d x 4 days AZITHROMYCIN 250 MG ORAL TABLET 309318 AZITHROMY ALLIOSN Inactive PREDNISONE 20 MG ORAL TABLET 2 tabs daily for 3 days, 1 tab daily for 3 days, 1/2 tab daily for 2 days PREDNISONE 20 MG ORAL T ABLET 242510 PREDNISONE Inactive ZITHROMAX 250 MG ORAL TABLET 2 po today, then 1 po q days 2-5 20 06/08/16 ZITHROMAX 250 MG ORAL TABLET 152940 AZITHROMYCIN [employer] ctive FLAGYL 500 MG ORAL TABLET 1 tablet by mouth two times daily 2014 FLAGYL 500 MG ORAL TABLET 412246 METRONIDAZOLE Inacti ve AUGMENTIN 875-125 MG ORAL TABLET 1 tab by mouth twice daily with food AUGMENTIN 875-125 MG ORAL TABLET 191938 AMOXICIL ELSA-POT CLAVULANATE Inactive NAPROXEN 500 MG ORAL TABLET one tab PO BID NAPROXEN 500 MG ORAL TABLET 843229 NAPROXEN Inactive PREDNISONE 20 MG ORAL TABLET 2 tabs daily for 3 days, 1 tab daily for 3 days, 1/2 tab daily for 2 days PREDNISONE 20 MG ORAL T ABLET 377915 PREDNISONE Inactive AZITHROMYCIN 250 MG ORAL TABLET 2 po qd x 1 day, then 1 po q d x 4 days AZITHROMYCIN 250 MG ORAL TABLET 024947 AZITHROMY ALLISON Inactive PREDNISONE 20 MG ORAL TABLET 2 tabs daily for 3 days, 1 tab daily for 3 days, 1/2 tab daily for 2 days PREDNISONE 20 MG ORAL T ABLET 462149 PREDNISONE Inactive ZITHROMAX Z-EMIL 250 MG ORAL TABLET 2 today, then 1 daily for 4 d ays ZITHROMAX Z-EMIL 250 MG ORAL TABLET 893483 AZITHROMYCIN Inactive CEFDINIR 300 MG ORAL CAPSULE 1 po BID x 10 days 12/18 CEFDINIR 300 MG ORAL CAPSULE 681135 CEFDINIR Inactive CEFDINIR 300 MG ORAL CAPSULE 1 po BID x 10 days CEFDINIR 300 MG ORAL CAPSULE 20030127 CEFDINIR Inactive PREDNISONE 20 MG ORAL TABLET 2 tabs daily for 3 days, 1 tab daily for 3 days, 1/2 tab daily for 2 days PREDNISONE 20 MG ORAL T ABLET 254577 PREDNISONE Inactive BACTRIM DS 800-160 MG ORAL TABLET 1 tab by mouth twice daily 201 05/02/30 BACTRIM DS 800-160 MG ORAL TABLET 767250 TRIMETHOPRIM-SULFAMETHOXAZOLE Inactive Advance Directives Directive Description Start [...] 263 10^3/MM^3 10*3/mm3 142-424 Lab Report: Chlamydia/GC APTIMA/47005 - Lab chlamydia DNA probe NOT DETECTED NOT DETECTED Lab Report: Chlamydia/GC APTIMA/30059 - Microbiology Neisseria gonorrhoeae DNA probe NOT [...] raw;Yellow Encounters Code Encounter Date Provider Facility CPT-99543 Level 3 Est. Patient 10:21:41 PRODUCTIVITY ENGINEER Arie mcqueen MD [facility] CPT-86682 Level 3 Est. Patient 11:35:15 PRODUCTIVITY ENGINEER Arie mcqueen MD [facility] CPT-38206 Level 3 Est. Patient 15:40:28 CDT Brii And erson BUILDING SUPERINTENDENT [facility] CPT-12085 Level 3 Est. Patient 16:40:36 CDT Arie mcqueen MD [facility] CPT-69625 Level 4 Est. Patient 15:29:22 PRODUCTIVITY ENGINEER Arie mcqueen MD [facility] CPT-91210 Level 3 Est. Patient 15:18:16 PRODUCTIVITY ENGINEER Jono black [facility] CPT-75714 Level 4 Est. Patient 12:08:40 PRODUCTIVITY ENGINEER Brii And erson [facility] CPT-53228 Level 3 Est. Patient 09:24:42 CDT Brii And erson [facility] CPT-71683 Level 3 Est. Patient 09:12:56 CDT Arie mcqueen MD [facility] CPT-12830 Level 3 Est. Patient 16:40:54 CDT Jose Zhong MD [facility] CPT-47610 Level 2 Est. Patient 13:01:13 CDT Brii La erson [facility] CPT-23416 Level 3 Est. Patient 11:55:30 PRODUCTIVITY ENGINEER Jono black [facility] CPT-01584 Level 3 Est. Patient 09:52:36 PRODUCTIVITY ENGINEER Brii And melinaon BUILDING SUPERINTENDENT [facility] CPT-24283 Level 3 Est. Patient 16:25:33 PRODUCTIVITY ENGINEER Rich Rosales MD [facility] CPT-20653 Level 3 Est. Patient 20:33:55 CDT Arie mcqueen MD [facility] CPT-69527 Level 3 Est. Patient 14:18:20 CDT Rich Rosales MD [facility] CPT-90990 Level 4 Est. Patient 09:34:31 CDT Arie mcqueen MD [facility] CPT-56397 Level 3 Est. Patient 09:08:55 PRODUCTIVITY ENGINEER Liliana vincent MD PhD [facility] CPT-85674 Level 3 Est. Patient 16:44:07 PRODUCTIVITY ENGINEER Arie mcqueen MD [facility] CPT-91375 Level 3 Est. Patient 10:44:27 CDT Arie mcqueen MD [facility] CPT-77521 Level 3 Est. Patient 08:55:41 CDT Jose Zhong MD [facility] CPT-36111 Level 3 Est. Patient 18:37:31 CDT Liliana vincent MD PhD [facility] CPT-86851 Level 3 Est. Patient 14:28:23 CDT Abelardo HERNANDEZ [facility] CPT-12151 Level 3 Est. Patient 15:18:13 PRODUCTIVITY ENGINEER Arie mcqueen MD [facility] CPT-35503 Level 3 Est. Patient 10:11:29 PRODUCTIVITY ENGINEER Arie mcqueen MD [facility] CPT-69337 Level 3 Est. Patient 10:55:57 PRODUCTIVITY ENGINEER Jono black DO [facility] CPT-74496 Level 3 Est. Patient 17:29:05 CDT Arie mcqueen MD [facility] Procedures Code Procedure Name Date Entry Date Standard Desc ription CPT-97916 Nexplanon Removal 15:40:28 CDT CPT-16746 Sono transvag pelvis non OB uterus ovari es cervix - XRAY USE ONLY 08:58:14 PRODUCTIVITY ENGINEER CPT-36683 UA w micro - LAB USE ONLY 16:04:56 PRODUCTIVITY ENGINEER 2015 CPT-14114 Wet Prep/GEN - LAB USE ONLY 16:04:56 PRODUCTIVITY ENGINEER 20 08/10/29 CPT-22074 First Vx - Ix admin via ID I M or jet injects without counseling by physician 16:57:10 CDT CPT-36558 Fluzone Preservative Free Intramuscular Suspension 16:57:10 CDT CPT-J0696 Rocephin 1000 mg (Ceftriaxone) 11:49:23 CDT CPT-J1040 Depo Medrol 80 mg (Methyl Prednisolone A cetate) 11:49:23 CDT CPT-J1100 Decadron 8mg (Dexamethasone) 11:49:23 CDT 2 CPT-86785 Abx/Therapy Injection 11:49:23 CDT CPT-61476 Abx/Therapy Injection 11:49:23 CDT CPT-78896 Abd compl w upright 09:07:26 PRODUCTIVITY ENGINEER CPT-94413 Ear Wash 16:12:47 PRODUCTIVITY ENGINEER CPT-OV Office Visit 11:12:01 CDT CPT-OV Office Visit 15:30:23 CDT CPT-05578 Sono pelvis non OB uterus ovaries cervix 15:50:44 CDT CPT-43210 Hand comp min 3V 16:42:32 CDT CPT-35045 Abd compl w upright 12:17:01 CDT CPT-07273 Nexplanon Placement 15:07:39 PRODUCTIVITY ENGINEER CPT-66810 Removal of IUD 15:07:39 PRODUCTIVITY ENGINEER CPT-59565 TB Tubersol 12:09:32 CDT CPT-41796 TB Tubersol 13:55:43 CDT
--- OUTSIDE RECORDS SUMMARY | 2020-03-03 08:15 | XMS REPORT | Clinical Summary ---
[...] a day as needed for diarrhea DIPHENOXYLATE-ATROPINE 90054608169 Active Rich mcintosh MD Active PROMETHAZINE HCL 25 MG TABS 1 four times a day as needed for vomiting PROMETHAZINE HCL 08314947705 Active Rich Rosales MD Active BACTRIM DS 800-160 MG TABS 1 twice a day SULFAMETHOXAZOLE-TRIMETHOPRIM 27692454513 Active Rich Rosales MD Active AUGMENTIN 875-125 MG TAB 1 tab by mouth twice daily with food 08/12/16 AMOXICILLIN-POT CLAVULANATE 86116211753 No Longer Active Liliana Estrada MD PhD Active CYCLOBENZAPRINE HCL 10 MG TABS 1/2 - 1 tablet by mouth three times daily as needed for muscle spasm/pain CYCLOBENZAPRINE HCL 96974 270590 Active Liliana Estrada MD PhD Active GUAIFENESIN-CODEINE 100-10 MG/5ML ORAL SYRP 2 tsp every 6 hours prn GUAIFENESIN-CODEINE 18256075293 Active Liliana Estrada MD PhD Active VICKS DAYQUIL SEVERE COLD/FLU TABS 1 tab every 6 hours prn ATEOTBIJRKPAF-QL-IP-APAP TABS 37828065841 Active Liliana Estrada MD PhD Active AMOXICILLIN 500 MG CAP 1 tab by mouth 3 times daily 08/12/16 AMOXICILLIN 72615346817 No Longer Active Liliana Estrada MD PhD Acti ve TESSALON PERLES 100 MG CAP 1 tablet by mouth 3 times daily 11/01 BENZONATATE 45230762346 No Longer Active Liliana Estrada MD PhD Active FLAGYL 500 MG TAB 1 tablet by mouth two times daily 07/11/29 METRONIDAZOLE 73864959699 No Longer Active Nilam Weber Active ZITHROMAX 250 MG TAB 2 po today, then 1 po q days 2-5 AZITHROMYCIN 70920624592 No Longer Active Arie Casper MD Acti ve VITAMINS 0.8 MG TABS take 1 tab po qday 08/08 [id number]-FA 32832319631 No Longer Active Arie Casper MD Active IBUPROFEN 800 MG TABS take one po Q 8 hours IBU PROFEN 89489352068 No Longer Active Arie Casper MD Active [facility] TUSSIN COUGH/COLD CF 5-10-100 MG/5ML LIQD 2 teaspoons ev eliud 4 hours SSRUYNSLJXUUZ-DN-DS 36789588945 No Longer Active Blaine Casper MD Active COMTREX COLD/COUGH DAY/NITE MS 5-2-10-325 MG MISC 2 caps deja ry 4 hours [id number]-TMC-CZ-APAP 70252571073 No Longer Active Da aleksandra aCsper MD Active CHLORASEPTIC MAX SORE THROAT 15-10 MG LOZG 1 every 2 hours prn 2 BENZOCAINE-MENTHOL 11220975494 No Longer Active Arie Marcleo Active PREDNISONE 20 MG TAB 2 tabs daily for 3 days, 1 t ab daily for 3 days, 1/2 tab daily for 2 days PREDNISONE 11139002291 No Longer Active Jose Zhong MD Active AZITHROMYCIN 250 MG TABS 2 po qd x 1 day, then 1 po qd x 4 days AZITHROMYCIN 89529173460 No Longer Active Jose Zhong MD Active ZOFRAN ODT 4 MG TBDP 1 po q6hr PRN Nausea ONDAN SETRON 05593093122 No Longer Active Rich Rosales MD Active ZOFRAN 4 MG TABS 1 tablet every 4 hours ONDANSE JERRELL HCL 07006254795 No Longer Active Rich Rosales MD Active MUCINEX 600 MG [id number]-AHU Take 1-2 tablets every 12 hours GUAIFENESIN 98349568024 No Longer Active Rich Rosales MD Activ e BACTRIM 400-80 MG TABS take one po BID SULFAMETHOXAZOLE-TRIMETHOPRIM 50876265119 No Longer Active Abelardo HRENANDEZ Active AZITHROMYCIN 500 MG TABS 1 PO q day x 6 days AZ ITHROMYCIN 14831659386 No Longer Active Tin HERNANDEZ Active ZITHROMAX 250 MG TAB 2 po today, then 1 po q days 2-5 AZITHROMYCIN 66383474382 No Longer Active Arie Casper MD Acti ve ZITHROMAX 250 MG TAB 2 po today, then 1 po q days 2-5 AZITHROMYCIN 75328651521 No Longer Active Arie Casper MD Acti ve AMOXICILLIN 500 MG CAP 1 tab by mouth 3 times daily 20 09/23/20 AMOXICILLIN 84280283469 No Longer Active Arie Casper MD Acti ve BACTRIM DS 800-160 MG TAB 1 tab by mouth twice daily 2 TRIMETHOPRIM-SULFAMETHOXAZOLE 95698422845 No Longer Active Arie Casper MD Active AMOXICILLIN 500 MG TABS take 1 tab po TID AMOXI CILLIN 72340916087 No Longer Active Arie Casper MD Active BACTRIM DS 800-160 MG TAB 1 tab by mouth twice daily 2 BACTRIM DS 800-160 MG TAB TRIMETHOPRIM-SULFAMETHOXAZOLE Inac tive MUCINEX 600 MG [id number]-[id number] Take 1-2 tablets every 12 hours MUCINEX 600 MG [id number] GUAIFENESIN Inactive ZOFRAN 4 MG TABS 1 tablet every 4 hours ZOFRAN 4 MG TABS 609572 ONDANSETRON HCL Inactive ZOFRAN ODT 4 MG TBDP 1 po q6hr PRN Nausea ZOFRAN ODT 4 MG TBDP 291301 ONDANSETRON Inactive CHLORASEPTIC MAX SORE THROAT 15-10 MG LOZG 1 every 2 hours prn 2 014/04/30 CHLORASEPTIC MAX SORE THROAT 15-10 MG LOZG BENZO ARINA-MENTHOL Inactive COMTREX COLD/COUGH DAY/NITE MS 5-2-10-325 MG MISC 2 caps deja ry 4 hours COMTREX COLD/COUGH DAY/NITE MS 5-2-10-325 MG MIS C [id number]-[id number]-PH-APAP Inactive [facility] TUSSIN COUGH/COLD CF 5-10-100 MG/5ML LIQD 2 teaspoons ev eliud 4 hours [facility] TUSSIN COUGH/COLD CF 5-10-100 MG/5ML LIQD [id number] Inactive IBUPROFEN 800 MG TABS take one po Q 8 hours IBUPROFEN 800 MG TABS IBUPROFEN Inactive VITAMINS 0.8 MG TABS take 1 tab po qday 08/08 VITAMINS 0.8 MG TABS [id number]-ERC-IP-FA Inactive TESSALON PERLES 100 MG CAP 1 tablet by mouth 3 times daily 11/01 TESSALON PERLES 100 MG CAP 478877 BENZONATATE Inact zaid AMOXICILLIN 500 MG CAP 1 tab by mouth 3 times daily 08/12/16 AMOXICILLIN 500 MG CAP 941398 AMOXICILLIN Inactive AMOXICILLIN 500 MG TABS take 1 tab po TID AMOXICILLIN 500 MG TABS 946479 AMOXICILLIN Inactive AMOXICILLIN 500 MG CAP 1 tab by mouth 3 times daily 09/23/20 AMOXICILLIN 500 MG CAP 731786 AMOXICILLIN Inactive ZITHROMAX 250 MG TAB 2 po today, then 1 po q days 2-5 ZITHROMAX 250 MG TAB 7061233 AZITHROMYCIN Inactive ZITHROMAX 250 MG TAB 2 po today, then 1 po q days 2-5 ZITHROMAX 250 MG TAB 3851449 AZITHROMYCIN Inactive AZITHROMYCIN 500 MG TABS 1 PO q day x 6 days 3 AZITHROMYCIN 500 MG TABS 7232849 AZITHROMYCIN Inactive BACTRIM 400-80 MG TABS take one po BID BA CTRIM 400-80 MG TABS 317160 SULFAMETHOXAZOLE-TRIMETHOPRIM Inactive AZITHROMYCIN 250 MG TABS 2 po qd x 1 day, then 1 po qd x 4 days AZITHROMYCIN 250 MG TABS 2386167 AZITHROMYCIN Inactiv e PREDNISONE 20 MG TAB 2 tabs daily for 3 days, 1 t ab daily for 3 days, 1/2 tab daily for 2 days PREDNISONE 20 MG TAB 033410 PREDNISON E Inactive ZITHROMAX 250 MG TAB 2 po today, then 1 po q days 2-5 ZITHROMAX 250 MG TAB 3870433 AZITHROMYCIN Inactive FLAGYL 500 MG TAB 1 tablet by mouth two times daily 07/11/29 FLAGYL 500 MG TAB 249768 METRONIDAZOLE Inactive AUGMENTIN 875-125 MG TAB 1 tab by mouth twice daily with food 08/12/16 AUGMENTIN 875-125 MG TAB 548168 AMOXICILLIN-POT CLAVULA ANGELO Inactive Advance Directives Directive [...] Negative;Positive Encounters Code Encounter Date Provider Facility CPT-37585 Level 3 Est. Patient 14:18:20 CDT Rich Rosales MD [facility] CPT-47062 Level 4 Est. Patient 09:34:31 CDT Arie mcqueen MD [facility] CPT-49492 Level 3 Est. Patient 09:08:55 DRIVER Liliana vincent MD PhD [facility] CPT-55975 Level 3 Est. Patient 16:44:07 DRIVER Arie mcqueen MD [facility] CPT-03559 Level 3 Est. Patient 10:44:27 CDT Arie mcqueen MD [facility] CPT-80741 Level 3 Est. Patient 08:55:41 CDT Jose Zhong MD [facility] CPT-42568 Level 3 Est. Patient 18:37:31 CDT Liliana vincent MD PhD [facility] CPT-14702 Level 3 Est. Patient 14:28:23 CDT [address] [facility] CPT-56515 Level 3 Est. Patient 15:18:13 DRIVER Arie mcqueen MD [facility] CPT-95357 Level 3 Est. Patient 10:11:29 DRIVER Arie mcqueen MD [facility] CPT-16873 Level 3 Est. Patient 10:55:57 DRIVER Jono black DO [facility] CPT-39858 Level 3 Est. Patient 17:29:05 CDT Arei mcqueen MD [facility] Procedures Code Procedure Name Date Entry Date Standard Desc ription CPT-15171 Sono pelvis non OB uterus ovaries cervix 15:50:44 CDT CPT-91020 Hand comp min 3V 16:42:32 CDT CPT-36501 Abd compl w upright 12:17:01 CDT CPT-68774 Nexplanon Placement 15:07:39 DRIVER CPT-09084 Removal of IUD 15:07:39 DRIVER CPT-28093 TB Tubersol 12:09:32 CDT CPT-69911 TB Tubersol 13:55:43 CDT
--- OUTSIDE RECORDS SUMMARY | 2020-03-03 08:16 | XMS REPORT | Clinical Summary ---
Author Author Admin, Diamante Marcelo Organization [facility] Address Unknown Phone Unavailable Allergies, Adverse [...] cute pharyngitis Nausea 787.02 Active Brii Larson PETAL CUTTER Nausea alone URI 465.9 Active Jono Gagnon [...] Jose pelayo MD Sinusitis, acute ICD-461.9 Inactive Liilana cheema MD PhD Fever ICD-780.60 Inactive Liliana Estrada MD PhD 08/12/16 Symptom, cough ICD-786.2 Inactive Liliana Estrada MD PhD Vaginal discharge ICD-623.5 Inactive Liliana lares MD PhD Urinary frequency ICD-788.41 Inactive Roseann willett Medication List Medication Instructions Start Date Stop Date Generic Name NDC Status Provider Patient Instruction PROTONIX 40 MG ORAL TBEC 1 po q a.m. PANTOPRAZO LE SODIUM 59490683074 Active Brii Larson APRN Active PREDNISONE 20 MG TAB 2 tabs daily for 3 days, 1 t ab daily for 3 days, 1/2 tab daily for 2 days PREDNISONE 83738431397 No Longer Active Brii Larson APRN Active PREDNISONE 20 MG TAB 1 tablet twice daily for 2 d ays, then 1 tablet once daily for 2 days PREDNISONE 95613471367 No Longer Active Brii Larson APRN Active FLONASE 50 MCG/ACT SUSP 1 spray each nostril twice d aily for allergies and runny nose until gone FLUTICASONE PROPIONATE Active Jono Gagnon DO Active PROMETHAZINE HCL 12.5 MG TABS 1 tablet by mouth every 6 hours as needed for nausea/vomiting PROMETHAZINE HCL 52000416426 No Longe r Active Jono Gagnon DO Active CITRATE OF MAGNESIA ORAL SOLN 1 bottle today for constipation 20 07/10/15 MAGNESIUM CITRATE 29392185938 No Longer Active Jono Gagnon DO Active ZOFRAN 4 MG ORAL TABS 1 TAB PO Q 6 HRS PRN NAUSEA 2014 ONDANSETRON HCL 26098132195 No Longer Active Brii Larson APRN A ctive LOMOTIL 2.5-0.025 MG TAB 1 to 2 four times a day as needed f or diarrhea DIPHENOXYLATE-ATROPINE 81566298340 No Longer Active January Larson APRN Active AMOXICILLIN 500 MG TABS 2 tabs twice a day for 10 days AMOXICILLIN 43180266217 No Longer Active Brii Larson APRN Acti ve NEXPLANON IMPL ETONOGESTREL IMPL 87673377544 Active Rich Rosales MD Active CYCLOBENZAPRINE HCL 10 MG TABS 1/2 - 1 tablet by mouth three times daily as needed for muscle spasm/pain CYCLOBENZAPRINE HCL 65636754114 No Longer Active Arie Casper MD Active LOMOTIL 2.5-0.025 MG TABS 1 to 2 four times a day as needed for diarrhea DIPHENOXYLATE-ATROPINE 69944050562 No Longer Active D freddy Casper MD Active MACROBID 100 MG CAP 1 cap by mouth twice daily NITROFURANTOIN MONOHYD MACRO 92682367655 No Longer Active Arie Casper MD Active ZYRTEC ALLERGY 10 MG CAPS 1 po qd CETIRIZINE HCL 63491934864 No Longer Active Arie Casper MD Active AZITHROMYCIN 250 MG TABS 2 po qd x 1 day, then 1 po qd x 4 days AZITHROMYCIN 27794328369 No Longer Active Jillina Frazelanette CABRERA Active PREDNISONE 20 MG TAB 2 tabs daily for 3 days, 1 t ab daily for 3 days, 1/2 tab daily for 2 days PREDNISONE 98215454858 No Longer Active Jillina Frazell PETAL CUTTER Active PROMETHAZINE HCL 25 MG TABS 1 four times a day as needed for vomiting PROMETHAZINE HCL 14183417313 No Longer Active Myrna E Medina MD Active BACTRIM DS 800-160 MG TABS 1 twice a day SULFAMETHOXAZOLE-TRIMETHOPRIM 01062573942 No Longer Active Myrna Roberto MD Active VICKS DAYQUIL SEVERE COLD/FLU TABS 1 tab every 6 hours prn 12/10 ANRBQMTYOCNEW-YN-VR-APAP TABS 65411197616 No Longer Active Myrna leigh MD Active GUAIFENESIN-CODEINE 100-10 MG/5ML ORAL SYRP 2 tsp every 6 hours prn GUAIFENESIN-CODEINE 03871746690 No Longer Active Myrna Roberto MD Active NAPROXEN 500 MG TAB one tab PO BID NAPROXEN 332 86466319 No Longer Active Myrna Roberto MD Active AUGMENTIN 875-125 MG TAB 1 tab by mouth twice daily with food 08/12/16 AMOXICILLIN-POT CLAVULANATE 57354417962 No Longer Active Liliana Estrada MD PhD Active AMOXICILLIN 500 MG CAP 1 tab by mouth 3 times daily 08/12/16 AMOXICILLIN 57372583742 No Longer Active Liliana Estrada MD PhD Acti ve TESSALON PERLES 100 MG CAP 1 tablet by mouth 3 times daily 11/01 BENZONATATE 62670683567 No Longer Active Liliana Estrada MD PhD Active FLAGYL 500 MG TAB 1 tablet by mouth two times daily 07/11/29 METRONIDAZOLE 19721033600 No Longer Active Nilam Raida Active ZITHROMAX 250 MG TAB 2 po today, then 1 po q days 2-5 AZITHROMYCIN 69540288517 No Longer Active Arie Casper MD Acti ve VITAMINS 0.8 MG TABS take 1 tab po qday 08/08 [id number]-FA 88020906451 No Longer Active Arie Casper MD Active IBUPROFEN 800 MG TABS take one po Q 8 hours IBU PROFEN 46503881346 No Longer Active Arie Casper MD Active [facility] TUSSIN COUGH/COLD CF 5-10-100 MG/5ML LIQD 2 teaspoons ev eliud 4 hours [id number]-[id number] 49533773366 No Longer Active Blaine Casper MD Active COMTREX COLD/COUGH DAY/NITE MS 5-2-10-325 MG MISC 2 caps deja ry 4 hours [id number]-CIC-ST-APAP 90324398406 No Longer Active Da aleksandra Casper MD Active CHLORASEPTIC MAX SORE THROAT 15-10 MG LOZG 1 every 2 hours prn 2 BENZOCAINE-MENTHOL 38055213562 No Longer Active Arie Marcelo Active PREDNISONE 20 MG TAB 2 tabs daily for 3 days, 1 t ab daily for 3 days, 1/2 tab daily for 2 days PREDNISONE 50199864377 No Longer Active Jose Zhong MD Active AZITHROMYCIN 250 MG TABS 2 po qd x 1 day, then 1 po qd x 4 days AZITHROMYCIN 53244255736 No Longer Active Jose Zhong MD Active ZOFRAN ODT 4 MG TBDP 1 po q6hr PRN Nausea ONDAN SETRON 36261340705 No Longer Active Rich Rosales MD Active ZOFRAN 4 MG TABS 1 tablet every 4 hours ONDANSE JERRELL HCL 77306113318 No Longer Active Rich Rosales MD Active MUCINEX 600 MG [id number] Take 1-2 tablets every 12 hours GUAIFENESIN 03884019621 No Longer Active Rich Rosales MD Activ e BACTRIM 400-80 MG TABS take one po BID SULFAMETHOXAZOLE-TRIMETHOPRIM 60870147318 No Longer Active Abelardo HERNANDEZ Active AZITHROMYCIN 500 MG TABS 1 PO q day x 6 days AZ ITHROMYCIN 36184379951 No Longer Active Tin HERNANDEZ Active ZITHROMAX 250 MG TAB 2 po today, then 1 po q days 2-5 AZITHROMYCIN 72678362385 No Longer Active Arie Casper MD Acti ve ZITHROMAX 250 MG TAB 2 po today, then 1 po q days 2-5 AZITHROMYCIN 41947229841 No Longer Active Arie Casper MD Acti ve AMOXICILLIN 500 MG CAP 1 tab by mouth 3 times daily 09/23/20 AMOXICILLIN 91219417678 No Longer Active Arie Casper MD Acti ve BACTRIM DS 800-160 MG TAB 1 tab by mouth twice daily 2 TRIMETHOPRIM-SULFAMETHOXAZOLE 76510910386 No Longer Active Arie Casper MD Active AMOXICILLIN 500 MG TABS take 1 tab po TID AMOXI CILLIN 31850817344 No Longer Active Arie Casper MD Active BACTRIM DS 800-160 MG TAB 1 tab by mouth twice daily 2 BACTRIM DS 800-160 MG TAB 116446 TRIMETHOPRIM-SULFAMETHOXAZOLE Inac tive MUCINEX 600 MG [id number]-HSL Take 1-2 tablets every 12 hours MUCINEX 600 MG [id number]-EOQ GUAIFENESIN Inactive ZOFRAN 4 MG TABS 1 tablet every 4 hours ZOFRAN 4 MG TABS 567243 ONDANSETRON HCL Inactive ZOFRAN ODT 4 MG TBDP 1 po q6hr PRN Nausea ZOFRAN ODT 4 MG TBDP 117613 ONDANSETRON Inactive CHLORASEPTIC MAX SORE THROAT 15-10 MG LOZG 1 every 2 hours prn 2 /04/30 CHLORASEPTIC MAX SORE THROAT 15-10 MG LOZG BENZO ARINA-MENTHOL Inactive COMTREX COLD/COUGH DAY/NITE MS 5-2-10-325 MG MISC 2 caps deja ry 4 hours COMTREX COLD/COUGH DAY/NITE MS 5-2-10-325 MG MIS C [id number] Inactive [facility] TUSSIN COUGH/COLD CF 5-10-100 MG/5ML LIQD 2 teaspoons ev eliud 4 hours [facility] TUSSIN COUGH/COLD CF 5-10-100 MG/5ML LIQD [id number]-SO Inactive IBUPROFEN 800 MG TABS take one po Q 8 hours IBUPROFEN 800 MG TABS 795819 IBUPROFEN Inactive VITAMINS 0.8 MG TABS take 1 tab po qday 08/08 VITAMINS 0.8 MG TABS [id number]-FA Inactive TESSALON PERLES 100 MG CAP 1 tablet by mouth 3 times daily 11/01 TESSALON PERLES 100 MG CAP 345197 BENZONATATE Inact zaid AMOXICILLIN 500 MG CAP 1 tab by mouth 3 times daily 08/12/16 AMOXICILLIN 500 MG CAP 143483 AMOXICILLIN Inactive GUAIFENESIN-CODEINE 100-10 MG/5ML ORAL SYRP 2 tsp every 6 hours prn GUAIFENESIN-CODEINE 100-10 MG/5ML ORAL SYRP 471957 GUAIFENESIN-CODEINE Inactive VICKS DAYQUIL SEVERE COLD/FLU TABS 1 tab every 6 hours prn 12/10 VICKS DAYQUIL SEVERE COLD/FLU TABS PHENYLEPHRINE -DM-GG-APAP TABS Inactive BACTRIM DS 800-160 MG TABS 1 twice a day BACTRIM DS 800- 160 MG TABS 966488 SULFAMETHOXAZOLE-TRIMETHOPRIM Inactive PROMETHAZINE HCL 25 MG TABS 1 four times a day as needed for vomiting PROMETHAZINE HCL 25 MG TABS 758838 PROMETHAZINE HCL Inactive ZYRTEC ALLERGY 10 MG CAPS 1 po qd ZY RTEC ALLERGY 10 MG CAPS CETIRIZINE HCL Inactive MACROBID 100 MG CAP 1 cap by mouth twice daily MACROBID 100 MG CAP 0645576 NITROFURANTOIN MONOHYD MACRO Inactive LOMOTIL 2.5-0.025 MG TABS 1 to 2 four times a day as needed for diarrhea LOMOTIL 2.5-0.025 MG TABS 6835944 DIPHENOXYLATE-A TROPINE Inactive CYCLOBENZAPRINE HCL 10 MG TABS 1/2 - 1 tablet by mouth three times daily as needed for muscle spasm/pain CYCLOBENZAP RINE HCL 10 MG TABS 988199 CYCLOBENZAPRINE HCL Inactive AMOXICILLIN 500 MG TABS 2 tabs twice a day for 10 days AMOXICILLIN 500 MG TABS 605289 AMOXICILLIN Inactive LOMOTIL 2.5-0.025 MG TAB 1 to 2 four times a day as needed f or diarrhea LOMOTIL 2.5-0.025 MG TAB 1273247 DIPHENOXYLATE-AT ROPINE Inactive ZOFRAN 4 MG ORAL TABS 1 TAB PO Q 6 HRS PRN NAUSEA 2014 ZOFRAN 4 MG ORAL TABS 765520 ONDANSETRON HCL Inactive CITRATE OF MAGNESIA ORAL SOLN 1 bottle today for constipation 20 07/10/15 CITRATE OF MAGNESIA ORAL SOLN 7304430 MAGNESIUM CITRATE Inactive PROMETHAZINE HCL 12.5 MG TABS 1 tablet by mouth every 6 hours as needed for nausea/vomiting PROMETHAZINE HCL 12.5 MG TABS 046387 PROMETHAZINE HCL Inactive PREDNISONE 20 MG TAB 1 tablet twice daily for 2 d ays, then 1 tablet once daily for 2 days PREDNISONE 20 MG TAB 829381 PREDNISONE Inac tive AMOXICILLIN 500 MG TABS take 1 tab po TID AMOXICILLIN 500 MG TABS 901530 AMOXICILLIN Inactive AMOXICILLIN 500 MG CAP 1 tab by mouth 3 times daily 09/23/20 AMOXICILLIN 500 MG CAP 607554 AMOXICILLIN Inactive ZITHROMAX 250 MG TAB 2 po today, then 1 po q days 2-5 ZITHROMAX 250 MG TAB 6179580 AZITHROMYCIN Inactive ZITHROMAX 250 MG TAB 2 po today, then 1 po q days 2-5 ZITHROMAX 250 MG TAB 9270726 AZITHROMYCIN Inactive AZITHROMYCIN 500 MG TABS 1 PO q day x 6 days 3 AZITHROMYCIN 500 MG TABS 2444420 AZITHROMYCIN Inactive BACTRIM 400-80 MG TABS take one po BID BA CTRIM 400-80 MG TABS 684760 SULFAMETHOXAZOLE-TRIMETHOPRIM Inactive AZITHROMYCIN 250 MG TABS 2 po qd x 1 day, then 1 po qd x 4 days AZITHROMYCIN 250 MG TABS 2523213 AZITHROMYCIN Inactiv e PREDNISONE 20 MG TAB 2 tabs daily for 3 days, 1 t ab daily for 3 days, 1/2 tab daily for 2 days PREDNISONE 20 MG TAB 512491 PREDNISON E Inactive ZITHROMAX 250 MG TAB 2 po today, then 1 po q days 2-5 ZITHROMAX 250 MG TAB 6237049 AZITHROMYCIN Inactive FLAGYL 500 MG TAB 1 tablet by mouth two times daily 07/11/29 FLAGYL 500 MG TAB 351821 METRONIDAZOLE Inactive AUGMENTIN 875-125 MG TAB 1 tab by mouth twice daily with food 20 08/12/16 AUGMENTIN 875-125 MG TAB 398351 AMOXICILLIN-POT CLAVULA ANGELO Inactive NAPROXEN 500 MG TAB one tab PO BID NAPROXEN 500 MG TAB 669817 NAPROXEN Inactive PREDNISONE 20 MG TAB 2 tabs daily for 3 days, 1 t ab daily for 3 days, 1/2 tab daily for 2 days PREDNISONE 20 MG TAB 703235 PREDNISON E Inactive AZITHROMYCIN 250 MG TABS 2 po qd x 1 day, then 1 po qd x 4 days AZITHROMYCIN 250 MG TABS 7301678 AZITHROMYCIN Inactiv e PREDNISONE 20 MG TAB 2 tabs daily for 3 days, 1 t ab daily for 3 days, 1/2 tab daily for 2 days PREDNISONE 20 MG TAB 844935 PREDNISON E Inactive Advance Directives Directive Description [...] Panel - Chemistry sodium, serum 136 mmol/L 300-944 6114/04/26 carbon dioxide, venous blood 29.9 mmol/L 21.0-32 [...] - Chem istry sodium, serum 139 mmol/L 762-331 8376/12/15 carbon dioxide, venous blood 30.2 mmol/L 21.0-32 [...] 5.0-8.5 Encounters Code Encounter Date Provider Facility CPT-89330 Level 3 Est. Patient 16:40:54 CDT Jose Zhong MD [facility] CPT-01821 Level 2 Est. Patient 13:01:13 CDT Steve PETAL CUTTER [facility] CPT-41730 Level 3 Est. Patient 11:55:30 OVER SHORT AND DAMAGE CLERK Jono black DO [facility] CPT-04911 Level 3 Est. Patient 09:52:36 OVER SHORT AND DAMAGE CLERK Steve CABRERA [facility] CPT-11997 Level 3 Est. Patient 16:25:33 OVER SHORT AND DAMAGE CLERK Rich Rosales MD [facility] CPT-28585 Level 3 Est. Patient 20:33:55 CDT Arie mcqueen MD [facility] CPT-11142 Level 3 Est. Patient 14:18:20 CDT Rich Rosales MD [facility] CPT-34035 Level 4 Est. Patient 09:34:31 CDT Arie mcqueen MD [facility] CPT-05326 Level 3 Est. Patient 09:08:55 OVER SHORT AND DAMAGE CLERK Liliana vincent MD PhD [facility] CPT-87019 Level 3 Est. Patient 16:44:07 OVER SHORT AND DAMAGE CLERK Arie mcqueen MD [facility] CPT-78765 Level 3 Est. Patient 10:44:27 CDT Arie mcqueen MD [facility] CPT-77933 Level 3 Est. Patient 08:55:41 CDT Jose Zhong MD [facility] CPT-60099 Level 3 Est. Patient 18:37:31 CDT Liliana vincent MD PhD [facility] CPT-15563 Level 3 Est. Patient 14:28:23 CDT Abelardo HERNANDEZ [facility] CPT-35108 Level 3 Est. Patient 15:18:13 OVER SHORT AND DAMAGE CLERK Arie mcqueen MD [facility] CPT-69816 Level 3 Est. Patient 10:11:29 OVER SHORT AND DAMAGE CLERK Arie mcqueen MD [facility] CPT-46737 Level 3 Est. Patient 10:55:57 OVER SHORT AND DAMAGE CLERK Jono black DO [facility] CPT-57203 Level 3 Est. Patient 17:29:05 CDT Arie mcqueen MD [facility] Procedures Code Procedure Name Date Entry Date Standard Desc ription CPT-69922 Abd compl w upright 09:07:26 OVER SHORT AND DAMAGE CLERK CPT-82667 Ear Wash 16:12:47 OVER SHORT AND DAMAGE CLERK CPT-OV Office Visit 11:12:01 CDT CPT-OV Office Visit 15:30:23 CDT CPT-44888 Sono pelvis non OB uterus ovaries cervix 15:50:44 CDT CPT-88916 Hand comp min 3V 16:42:32 CDT CPT-43381 Abd compl w upright 12:17:01 CDT CPT-11177 Nexplanon Placement 15:07:39 OVER SHORT AND DAMAGE CLERK CPT-97368 Removal of IUD 15:07:39 OVER SHORT AND DAMAGE CLERK CPT-59549 TB Tubersol 12:09:32 CDT CPT-95588 TB Tubersol 13:55:43 CDT
--- OUTSIDE RECORDS SUMMARY | 2020-03-03 08:16 | XMS REPORT | Clinical Summary ---
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 Dysthymic disorder URI 465.9 Active Jono Gagnon DO Acu te upper respiratory infections of unspecified site Vaginal bleeding 623.8 Active Brii MARROQUIN RN Other specified noninflammatory disorders of vagina FH BREAST CANCER ICD-V16.3 Inactive Jsoe Marcelo FH COLON CANCER ICD-V16.0 Inactive Jose [...] MG TAB Take 1 tab BID NAPROXEN 488549917 15 Active Brii Larson APRN Active NEXPLANON IMPL Left arm subcutaneously ETONOGES TREL IMPL 50697980215 Active Brii Larson APRN Active CEFDINIR 300 MG CAPS 1 po BID x 10 days CEFDINI R 75851245481 No Longer Active Brii Larson APRN Active PREDNISONE 20 MG TAB 1 tablet daily for airway inflammation 2015 PREDNISONE 47053035508 No Longer Active Brii Larson APRN Active CEFDINIR 300 MG CAPS 1 po BID x 10 days CEFDINI R 01404270401 No Longer Active Jono Gagnon DO Active FLONASE 50 MCG/ACT SUSP 1 spray each nostril twice d aily for allergies and runny nose until gone FLUTICASONE PROPIONATE No Longe r Active Jono Gagnon DO Active ALPRAZOLAM 0.25 MG TAB 1 tablet by mouth every 8 hours as ne eded for stress ALPRAZOLAM 89550878863 No Longer Active Jono Gagnon DO Active ZOLOFT 50 MG TAB 1 tablet by mouth daily SERTRA LINE HCL 40386942285 Active Arie Casper MD Active LOMOTIL 2.5-0.025 MG TAB 1 tab po four times a day as needed for diarrhea DIPHENOXYLATE-ATROPINE 54435624427 Active Brii Larson APRN Active ZITHROMAX Z-EMIL 250 MG TABS 2 today, then 1 daily for 4 days 201 03/31/18 AZITHROMYCIN 03987524314 No Longer Active Arie Casper MD Active PROTONIX 40 MG ORAL TBEC 1 po q a.m. PANTOPRAZO LE SODIUM 75786488232 Active Carline Ochoa RPT,RMA Active PREDNISONE 20 MG TAB 2 tabs daily for 3 days, 1 t ab daily for 3 days, 1/2 tab daily for 2 days PREDNISONE 09212276493 No Longer Active Brii Larson APRN Active PREDNISONE 20 MG TAB 1 tablet twice daily for 2 d ays, then 1 tablet once daily for 2 days PREDNISONE 15153624466 No Longer Active Brii Larson APRN Active PROMETHAZINE HCL 12.5 MG TABS 1 tablet by mouth every 6 hours as needed for nausea/vomiting PROMETHAZINE HCL 22059119395 No Longe r Active Jono Gagnon DO Active CITRATE OF MAGNESIA ORAL SOLN 1 bottle today for constipation 20 07/10/15 MAGNESIUM CITRATE 11111293136 No Longer Active Jono Gagnon DO Active ZOFRAN 4 MG ORAL TABS 1 TAB PO Q 6 HRS PRN NAUSEA 2014 ONDANSETRON HCL 02362595385 No Longer Active Brii Larson APRN A ctive LOMOTIL 2.5-0.025 MG TAB 1 to 2 four times a day as needed f or diarrhea DIPHENOXYLATE-ATROPINE 97638064239 No Longer Active January Larson APRN Active AMOXICILLIN 500 MG TABS 2 tabs twice a day for 10 days AMOXICILLIN 78886516797 No Longer Active rBii Larson APRN Acti ve CYCLOBENZAPRINE HCL 10 MG TABS 1/2 - 1 tablet by mouth three times daily as needed for muscle spasm/pain CYCLOBENZAPRINE HCL 56640079341 No Longer Active Arie Casper MD Active LOMOTIL 2.5-0.025 MG TABS 1 to 2 four times a day as needed for diarrhea DIPHENOXYLATE-ATROPINE 62082041152 No Longer Active D freddy Casper MD Active MACROBID 100 MG CAP 1 cap by mouth twice daily NITROFURANTOIN MONOHYD MACRO 72211345980 No Longer Active Arie Casper MD Active ZYRTEC ALLERGY 10 MG CAPS 1 po qd CETIRIZINE HCL 21074220237 No Longer Active Arie Casper MD Active AZITHROMYCIN 250 MG TABS 2 po qd x 1 day, then 1 po qd x 4 days AZITHROMYCIN 28814072821 No Longer Active Jillina Frazelanette CABRERA Active PREDNISONE 20 MG TAB 2 tabs daily for 3 days, 1 t ab daily for 3 days, 1/2 tab daily for 2 days PREDNISONE 20958729547 No Longer Active Jillina Frazell RICK Active PROMETHAZINE HCL 25 MG TABS 1 four times a day as needed for vomiting PROMETHAZINE HCL 67979705383 No Longer Active Myrna Roberto MD Active BACTRIM DS 800-160 MG TABS 1 twice a day SULFAMETHOXAZOLE-TRIMETHOPRIM 16336149302 No Longer Active Myrna Roberto MD Active VICKS DAYQUIL SEVERE COLD/FLU TABS 1 tab every 6 hours prn 12/10 [id number] TABS 22457578670 No Longer Active Myrna leigh MD Active GUAIFENESIN-CODEINE 100-10 MG/5ML ORAL SYRP 2 tsp every 6 hours prn GUAIFENESIN-CODEINE 33840816642 No Longer Active Myrna Roberto MD Active NAPROXEN 500 MG TAB one tab PO BID NAPROXEN 332 26880135 No Longer Active Myrna Roberto MD Active AUGMENTIN 875-125 MG TAB 1 tab by mouth twice daily with food 20 08/12/16 AMOXICILLIN-POT CLAVULANATE 58000301684 No Longer Active Liliana Estrada MD PhD Active AMOXICILLIN 500 MG CAP 1 tab by mouth 3 times daily 08/12/16 AMOXICILLIN 74922192703 No Longer Active Liliana Estrada MD PhD Acti ve TESSALON PERLES 100 MG CAP 1 tablet by mouth 3 times daily 11/01 BENZONATATE 90127715284 No Longer Active Liliana Estrada MD PhD Active FLAGYL 500 MG TAB 1 tablet by mouth two times daily 07/11/29 METRONIDAZOLE 43705174275 No Longer Active Nilam Weber Active ZITHROMAX 250 MG TAB 2 po today, then 1 po q days 2-5 AZITHROMYCIN 05589481227 No Longer Active Arie Casper MD Acti ve VITAMINS 0.8 MG TABS take 1 tab po qday 08/08 [id number] 16015777274 No Longer Active Arie Casper MD Active IBUPROFEN 800 MG TABS take one po Q 8 hours IBU PROFEN 95678904265 No Longer Active Arie Casper MD Active [facility] TUSSIN COUGH/COLD CF 5-10-100 MG/5ML LIQD 2 teaspoons ev eliud 4 hours [id number] 87262374096 No Longer Active Blaine Casper MD Active COMTREX COLD/COUGH DAY/NITE MS 5-2-10-325 MG MISC 2 caps deja ry 4 hours [id number] 18855710442 No Longer Active Da aleksandra Casper MD Active CHLORASEPTIC MAX SORE THROAT 15-10 MG LOZG 1 every 2 hours prn 2 BENZOCAINE-MENTHOL 19258530661 No Longer Active Arie Marcelo Active PREDNISONE 20 MG TAB 2 tabs daily for 3 days, 1 t ab daily for 3 days, 1/2 tab daily for 2 days PREDNISONE 15537140246 No Longer Active Jose Zhong MD Active AZITHROMYCIN 250 MG TABS 2 po qd x 1 day, then 1 po qd x 4 days AZITHROMYCIN 84416432329 No Longer Active Jose Zhong MD Active ZOFRAN ODT 4 MG TBDP 1 po q6hr PRN Nausea ONDAN SETRON 72162792402 No Longer Active Rich Rosales MD Active ZOFRAN 4 MG TABS 1 tablet every 4 hours ONDANSE JERRELL HCL 65900127700 No Longer Active Rich Rosales MD Active MUCINEX 600 MG [id number]-[id number] Take 1-2 tablets every 12 hours GUAIFENESIN 28485816070 No Longer Active Rich Rosales MD Activ e BACTRIM 400-80 MG TABS take one po BID SULFAMETHOXAZOLE-TRIMETHOPRIM 64353988315 No Longer Active Abelardo HERNANDEZ Active AZITHROMYCIN 500 MG TABS 1 PO q day x 6 days AZ ITHROMYCIN 58057888377 No Longer Active Tin HERNANDEZ Active ZITHROMAX 250 MG TAB 2 po today, then 1 po q days 2-5 AZITHROMYCIN 66619285749 No Longer Active Arie Casper MD Acti ve ZITHROMAX 250 MG TAB 2 po today, then 1 po q days 2-5 AZITHROMYCIN 82755893499 No Longer Active Arie Casper MD Acti ve AMOXICILLIN 500 MG CAP 1 tab by mouth 3 times daily 20 09/23/20 AMOXICILLIN 38709904432 No Longer Active Arie Casper MD Acti ve BACTRIM DS 800-160 MG TAB 1 tab by mouth twice daily 2 TRIMETHOPRIM-SULFAMETHOXAZOLE 02156935070 No Longer Active Arie Casper MD Active AMOXICILLIN 500 MG TABS take 1 tab po TID AMOXI CILLIN 03139871981 No Longer Active Arie Casper MD Active BACTRIM DS 800-160 MG TAB 1 tab by mouth twice daily 2 BACTRIM DS 800-160 MG TAB 958920 TRIMETHOPRIM-SULFAMETHOXAZOLE Inac tive MUCINEX 600 MG [id number] Take 1-2 tablets every 12 hours MUCINEX 600 MG [id number]-MCE GUAIFENESIN Inactive ZOFRAN 4 MG TABS 1 tablet every 4 hours ZOFRAN 4 MG TABS 870170 ONDANSETRON HCL Inactive ZOFRAN ODT 4 MG TBDP 1 po q6hr PRN Nausea ZOFRAN ODT 4 MG TBDP 118757 ONDANSETRON Inactive CHLORASEPTIC MAX SORE THROAT 15-10 MG LOZG 1 every 2 hours prn 2 CHLORASEPTIC MAX SORE THROAT 15-10 MG LOZG BENZO ARINA-MENTHOL Inactive COMTREX COLD/COUGH DAY/NITE MS 5-2-10-325 MG MISC 2 caps deja ry 4 hours COMTREX COLD/COUGH DAY/NITE MS 5-2-10-325 MG MIS C [id number] Inactive [facility] TUSSIN COUGH/COLD CF 5-10-100 MG/5ML LIQD 2 teaspoons ev eliud 4 hours [facility] TUSSIN COUGH/COLD CF 5-10-100 MG/5ML LIQD QRAANMTNTGACL-IT-TA Inactive IBUPROFEN 800 MG TABS take one po Q 8 hours IBUPROFEN 800 MG TABS IBUPROFEN Inactive VITAMINS 0.8 MG TABS take 1 tab po qday 08/08 VITAMINS 0.8 MG TABS [id number] Inactive TESSALON PERLES 100 MG CAP 1 tablet by mouth 3 times daily 11/01 TESSALON PERLES 100 MG CAP 831063 BENZONATATE Inact zaid AMOXICILLIN 500 MG CAP 1 tab by mouth 3 times daily 08/12/16 AMOXICILLIN 500 MG CAP 452954 AMOXICILLIN Inactive GUAIFENESIN-CODEINE 100-10 MG/5ML ORAL SYRP 2 tsp every 6 hours prn GUAIFENESIN-CODEINE 100-10 MG/5ML ORAL SYRP 377180 GUAIFENESIN-CODEINE Inactive VICKS DAYQUIL SEVERE COLD/FLU TABS 1 tab every 6 hours prn 12/10 VICKS DAYQUIL SEVERE COLD/FLU TABS PHENYLEPHRINE -DM-GG-APAP TABS Inactive BACTRIM DS 800-160 MG TABS 1 twice a day BACTRIM DS 800- 160 MG TABS 037720 SULFAMETHOXAZOLE-TRIMETHOPRIM Inactive PROMETHAZINE HCL 25 MG TABS 1 four times a day as needed for vomiting PROMETHAZINE HCL 25 MG TABS 113811 PROMETHAZINE HCL Inactive ZYRTEC ALLERGY 10 MG CAPS 1 po qd ZY RTEC ALLERGY 10 MG CAPS CETIRIZINE HCL Inactive MACROBID 100 MG CAP 1 cap by mouth twice daily MACROBID 100 MG CAP 1408127 NITROFURANTOIN MONOHYD MACRO Inactive LOMOTIL 2.5-0.025 MG TABS 1 to 2 four times a day as needed for diarrhea LOMOTIL 2.5-0.025 MG TABS 8899813 DIPHENOXYLATE-A TROPINE Inactive CYCLOBENZAPRINE HCL 10 MG TABS 1/2 - 1 tablet by mouth three times daily as needed for muscle spasm/pain CYCLOBENZAP RINE HCL 10 MG TABS 860317 CYCLOBENZAPRINE HCL Inactive AMOXICILLIN 500 MG TABS 2 tabs twice a day for 10 days AMOXICILLIN 500 MG TABS 526203 AMOXICILLIN Inactive LOMOTIL 2.5-0.025 MG TAB 1 to 2 four times a day as needed f or diarrhea LOMOTIL 2.5-0.025 MG TAB 1850921 DIPHENOXYLATE-AT ROPINE Inactive ZOFRAN 4 MG ORAL TABS 1 TAB PO Q 6 HRS PRN NAUSEA 2014 ZOFRAN 4 MG ORAL TABS 167611 ONDANSETRON HCL Inactive CITRATE OF MAGNESIA ORAL SOLN 1 bottle today for constipation 20 07/10/15 CITRATE OF MAGNESIA ORAL SOLN 9610253 MAGNESIUM CITRATE Inactive PROMETHAZINE HCL 12.5 MG TABS 1 tablet by mouth every 6 hours as needed for nausea/vomiting PROMETHAZINE HCL 12.5 MG TABS 237215 PROMETHAZINE HCL Inactive PREDNISONE 20 MG TAB 1 tablet twice daily for 2 d ays, then 1 tablet once daily for 2 days PREDNISONE 20 MG TAB 243782 PREDNISONE Inac tive ALPRAZOLAM 0.25 MG TAB 1 tablet by mouth every 8 hours as ne eded for stress ALPRAZOLAM 0.25 MG TAB 111825 ALPRAZOLAM Inact zaid FLONASE 50 MCG/ACT SUSP 1 spray each nostril twice d aily for allergies and runny nose until gone FLONASE 50 MCG/ACT SUSP F LUTICASONE PROPIONATE Inactive PREDNISONE 20 MG TAB 1 tablet daily for airway inflammation 2015 PREDNISONE 20 MG TAB 122670 PREDNISONE Inactive AMOXICILLIN 500 MG TABS take 1 tab po TID AMOXICILLIN 500 MG TABS 692711 AMOXICILLIN Inactive AMOXICILLIN 500 MG CAP 1 tab by mouth 3 times daily 09/23/20 AMOXICILLIN 500 MG CAP 064958 AMOXICILLIN Inactive ZITHROMAX 250 MG TAB 2 po today, then 1 po q days 2-5 ZITHROMAX 250 MG TAB 2956389 AZITHROMYCIN Inactive ZITHROMAX 250 MG TAB 2 po today, then 1 po q days 2-5 ZITHROMAX 250 MG TAB 0015612 AZITHROMYCIN Inactive AZITHROMYCIN 500 MG TABS 1 PO q day x 6 days 3 AZITHROMYCIN 500 MG TABS 3875765 AZITHROMYCIN Inactive BACTRIM 400-80 MG TABS take one po BID BA CTRIM 400-80 MG TABS 147883 SULFAMETHOXAZOLE-TRIMETHOPRIM Inactive AZITHROMYCIN 250 MG TABS 2 po qd x 1 day, then 1 po qd x 4 days AZITHROMYCIN 250 MG TABS 9358196 AZITHROMYCIN Inactiv e PREDNISONE 20 MG TAB 2 tabs daily for 3 days, 1 t ab daily for 3 days, 1/2 tab daily for 2 days PREDNISONE 20 MG TAB 979184 PREDNISON E Inactive ZITHROMAX 250 MG TAB 2 po today, then 1 po q days 2-5 ZITHROMAX 250 MG TAB 7533208 AZITHROMYCIN Inactive FLAGYL 500 MG TAB 1 tablet by mouth two times daily 07/11/29 FLAGYL 500 MG TAB 141589 METRONIDAZOLE Inactive AUGMENTIN 875-125 MG TAB 1 tab by mouth twice daily with food 20 08/12/16 AUGMENTIN 875-125 MG TAB 053487 AMOXICILLIN-POT CLAVULA ANGELO Inactive NAPROXEN 500 MG TAB one tab PO BID NAPROXEN 500 MG TAB 147217 NAPROXEN Inactive PREDNISONE 20 MG TAB 2 tabs daily for 3 days, 1 t ab daily for 3 days, 1/2 tab daily for 2 days PREDNISONE 20 MG TAB 854847 PREDNISON E Inactive AZITHROMYCIN 250 MG TABS 2 po qd x 1 day, then 1 po qd x 4 days AZITHROMYCIN 250 MG TABS 4510443 AZITHROMYCIN Inactiv e PREDNISONE 20 MG TAB 2 tabs daily for 3 days, 1 t ab daily for 3 days, 1/2 tab daily for 2 days PREDNISONE 20 MG TAB 634820 PREDNISON E Inactive ZITHROMAX Z-EMIL 250 MG TABS 2 today, then 1 daily for 4 days 201 03/31/18 ZITHROMAX Z-EMIL 250 MG TABS 2801701 AZITHROMYCIN Inac tive CEFDINIR 300 MG CAPS [...] Panel - Chemistry sodium, serum 136 mmol/L 458-112 0204/04/26 carbon dioxide, venous blood 29.9 mmol/L 21.0-32 [...] Negative Encounters Code Encounter Date Provider Facility CPT-49662 Level 4 Est. 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 Patient 09:24:42 CDT Steve [facility] CPT-06174 Level 3 Est. Patient 09:12:56 CDT Arie mcqueen MD [facility] CPT-45037 Level 3 Est. Patient 16:40:54 CDT Jose Zhong MD [facility] CPT-66199 Level 2 Est. 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 Patient 11:55:30 [employer] Jono black DO [facility] CPT-04981 Level 3 Est. Patient 09:52:36 [employer] Steve CABRERA [facility] CPT-44304 Level 3 Est. Patient 16:25:33 [employer] Rich Rosales MD [facility] CPT-51916 Level 3 Est. Patient 20:33:55 CDT Arie mcqueen MD [facility] CPT-12073 Level 3 Est. Patient 14:18:20 CDT Rich Rosales MD [facility] CPT-97757 Level 4 Est. Patient 09:34:31 CDT Arie mcqueen MD [facility] CPT-67094 Level 3 Est. Patient 09:08:55 [employer] Liliana vincent MD PhD [facility]-03295 Level 3 Est. Patient 16:44:07 [employer] Arie mcqueen MD [facility] CPT-76015 Level 3 Est. Patient 10:44:27 CDT Arie mcqueen MD [facility] CPT-77961 Level 3 Est. Patient 08:55:41 CDT Jose Zhong MD [facility] CPT-66695 Level 3 Est. Patient 18:37:31 CDT Liliana vincent MD PhD [facility] CPT-87759 Level 3 Est. Patient 14:28:23 CDT Abelardo HERNANDEZ [facility] CPT-56379 Level 3 Est. Patient 15:18:13 [employer] Arie mcqueen MD [facility] CPT-90718 Level 3 Est. Patient 10:11:29 [employer] Arie mcqueen MD [facility] CPT-56616 Level 3 Est. Patient 10:55:57 [employer] Jono black DO [facility] CPT-82892 Level 3 Est. Patient 17:29:05 CDT Arie mcqueen MD [facility] Procedures Code Procedure Name Date Entry Date Standard Desc ription CPT-69033 Sono transvag pelvis non OB uterus ovari es cervix - XRAY USE ONLY 08:58:14 [employer] CPT-23286 UA w micro - LAB USE ONLY 16:04:56 [employer] 2015 CPT-91328 Wet Prep/GEN - LAB USE ONLY 16:04:56 [employer] 20 08/10/29 CPT-74568 First Vx - Ix admin via ID I M or jet injects without counseling by physician 16:57:10 CDT CPT-16596 Fluzone Preservative Free Intramuscular Suspension 16:57:10 CDT CPT-J0696 Rocephin 1000 mg (Ceftriaxone) 11:49:23 CDT CPT-J1040 Depo Medrol 80 mg (Methyl Prednisolone A cetate) 11:49:23 CDT CPT-J1100 Decadron 8mg (Dexamethasone) 11:49:23 CDT 2 CPT-66965 Abx/Therapy Injection 11:49:23 CDT CPT-90257 Abx/Therapy Injection 11:49:23 CDT CPT-43055 Abd compl w upright 09:07:26 [employer] CPT-22437 Ear Wash 16:12:47 [employer] CPT-OV Office Visit 11:12:01 CDT CPT-OV Office Visit 15:30:23 CDT CPT-09301 Sono pelvis non OB uterus ovaries cervix 15:50:44 CDT CPT-21284 Hand comp min 3V 16:42:32 CDT CPT-68313 Abd compl w upright 12:17:01 CDT CPT-56238 Nexplanon Placement 15:07:39 [employer] CPT-09544 Removal of IUD 15:07:39 [employer] CPT-09673 TB Tubersol 12:09:32 CDT CPT-51167 TB Tubersol 13:55:43 CDT
--- OUTSIDE RECORDS SUMMARY | 2020-03-03 08:17 | XMS REPORT | Clinical Summary ---
Author Author Admin, Diamante Marcelo Organization [employer] Address Unknown Phone Unavailable Allergies, Adverse Reactions, [...] implantable subdermal contraceptiv e Active Brii Russ NET WPF DEVELOPER Vaginal bleeding 623.8 Active Arie Casper MD Other specified noninflammatory disorders of vagina Influenza like illness 487.1 Active Jose Mcwilliams MD Influenza with other respiratory manifestations Sinusitis 473.9 Active Jessica Heaton NET WPF DEVELOPER Unspecified sinusitis (chronic) BREAST CANCER ICD-V16.3 Inactive [...] q12hr PRN Cough HYDROCOD POLST-CHLORPHEN POLST 5 [id number] No Longer Active Myrna Roberto MD Active ZITHROMAX Z-EMIL 250 MG TABS Take two tablets today and then 1 tablet daily for 4 days AZITHROMYCIN 18118420019 No Longer Active Flaco Rosales MD Active GUAIFENESIN DM 400-20 MG ORAL TABLET 1 pill by mouth t wice daily, if needed for cough DEXTROMETHORPHAN-GUAIFENESIN 36075228530 No Longer Active Rich Rosales MD Active CEFDINIR 300 MG ORAL CAPSULE 1 po BID x 10 days CEFDINIR 21573198292 No Longer Active Jessica Heaton APRN Active CHERATUSSIN AC 100-10 MG/5ML ORAL SYRUP 1 tsp by mouth every 4 hours as needed for cough GUAIFENESIN-CODEINE 17545262637 No Longe r Active Jessica Heaton APRN Active TAMIFLU 75 MG ORAL CAPSULE 1 po BID x 5 days 0 OSELTAMIVIR PHOSPHATE 32819663607 No Longer Active Jose Zhong MD Activ e ZITHROMAX Z-EMIL 250 MG ORAL TABLET 2 today, then 1 daily for 4 d ays AZITHROMYCIN 15930418894 No Longer Active Arie Casper MD Active PROTONIX 40 MG ORAL TABLET DELAYED RELEASE 1 po q a.m. PANTOPRAZOLE SODIUM 17244782314 No Longer Active Arie Casper MD Active BACTRIM DS 800-160 MG ORAL TABLET 1 tab by mouth twice daily 201 05/02/30 TRIMETHOPRIM-SULFAMETHOXAZOLE 12325989825 No Longer Active R [facility] Ty Active NEXPLANON IMPLANT right arm subcutaneously ETONOGESTREL IMPL 52668836060 No Longer Active Brii Russ APRN Active TUSSIONEX PENNKINETIC ER 10-8 MG/5ML ORAL SUSPENSION E XTENDED RELEASE 5ml po q12hr PRN Cough HYDROCOD POLST-CHLORPHEN POLST 5 5462176751 No Longer Active Brii Russ NET WPF DEVELOPER Active CETIRIZINE HCL 10 MG ORAL TABLET 1 po qd PRN Allergies CETIRIZINE HCL 01457086826 No Longer Active Brii Russ APRN Activ e PREDNISONE 20 MG ORAL TABLET 2 tabs daily for 3 days, 1 tab daily for 3 days, 1/2 tab daily for 2 days PREDNISONE 55187337023 No Longer Active Arie Casper MD Active LOMOTIL 2.5-0.025 MG ORAL TABLET 1 tab po four times a day as needed for diarrhea DIPHENOXYLATE-ATROPINE 09396408490 No Lo nger Active Arie Casper MD Active ZOLOFT 50 MG ORAL TABLET 1 tablet by mouth daily 12/08 SERTRALINE HCL 59274477624 No Longer Active Arie Casper MD Ac tive NAPROXEN 500 MG ORAL TABLET Take 1 tab BID NAPR OXEN 70937704760 No Longer Active Arie Casper MD Active CEFDINIR 300 MG ORAL CAPSULE 1 po BID x 10 days CEFDINIR 80160621818 No Longer Active Brii Russ APRN Active PREDNISONE 20 MG ORAL TABLET 1 tablet daily for airway inflammat ion PREDNISONE 30910834838 No Longer Active Brii Russ APRN A ctive CEFDINIR 300 MG ORAL CAPSULE 1 po BID x 10 days CEFDINIR 36267609499 No Longer Active Jono Gagnon DO Active FLONASE 50 MCG/ACT NASAL SUSPENSION 1 spray each nostr il twice daily for allergies and runny nose until gone FLUT ICASONE PROPIONATE 39716281300 No Longer Active Jono Gagnon DO Active ALPRAZOLAM 0.25 MG ORAL TABLET 1 tablet by mouth every 8 hours as needed for stress ALPRAZOLAM 92831675554 No Longer Active Jono Gagnon DO Active ZITHROMAX Z-EMIL 250 MG ORAL TABLET 2 today, then 1 daily for 4 d ays AZITHROMYCIN 05224254382 No Longer Active Arie Casper MD Active PREDNISONE 20 MG ORAL TABLET 2 tabs daily for 3 days, 1 tab daily for 3 days, 1/2 tab daily for 2 days PREDNISONE 56117753515 No Longer Active Brii Russ APRN Active PREDNISONE 20 MG ORAL TABLET 1 tablet twice daily for 2 days, then 1 tablet once daily for 2 days PREDNISONE 14909035203 No Longer Active Brii Russ APRN Active PROMETHAZINE HCL 12.5 MG ORAL TABLET 1 tablet by mouth every 6 hours as needed for nausea/vomiting PROMETHAZINE HCL 56624764258 No L onger Active Jono Gagnon DO Active CITRATE OF MAGNESIA ORAL SOLUTION 1 bottle today for constipatio n MAGNESIUM CITRATE 28891534108 No Longer Active Jono Gagnon DO Active ZOFRAN 4 MG ORAL TABLET 1 TAB PO Q 6 HRS PRN NAUSEA 07/10/15 ONDANSETRON HCL 40043121382 No Longer Active Brii Russ APRN Acti ve LOMOTIL 2.5-0.025 MG ORAL TABLET 1 to 2 four times a day as needed for diarrhea DIPHENOXYLATE-ATROPINE 82228070343 No Longer Active January Russ APRN Active AMOXICILLIN 500 MG ORAL TABLET 2 tabs twice a day for 10 days 20 07/09/11 AMOXICILLIN 04414689363 No Longer Active Brii Russ APRN Active CYCLOBENZAPRINE HCL 10 MG ORAL TABLET 1/2 - 1 tablet b y mouth three times daily as needed for muscle spasm/pain CYCLOBENZAPRINE HCL 57932364595 No Longer Active Arie Casper MD Active LOMOTIL 2.5-0.025 MG ORAL TABLET 1 to 2 four times a day as needed for diarrhea DIPHENOXYLATE-ATROPINE 72566485712 No Longer Active Fozia Casper MD Active MACROBID 100 MG ORAL CAPSULE 1 cap by mouth twice daily NITROFURANTOIN MONOHYD MACRO 27639083192 No Longer Active Arie Casper MD Active ZYRTEC ALLERGY 10 MG ORAL CAPSULE 1 po qd CE TIRIZINE HCL 99479162868 No Longer Active Arie Casper MD Active AZITHROMYCIN 250 MG ORAL TABLET 2 po qd x 1 day, then 1 po q d x 4 days AZITHROMYCIN 60250258687 No Longer Active Jessica salgado NET WPF DEVELOPER Active PREDNISONE 20 MG ORAL TABLET 2 tabs daily for 3 days, 1 tab daily for 3 days, 1/2 tab daily for 2 days PREDNISONE 22507345134 No Longer Active Jessica Heaotn NET WPF DEVELOPER Active PROMETHAZINE HCL 25 MG ORAL TABLET 1 four times a day as nee ded for vomiting PROMETHAZINE HCL 92767766641 No Longer Active Myrna Roberto MD Active BACTRIM DS 800-160 MG ORAL TABLET 1 twice a day 05/30 SULFAMETHOXAZOLE-TRIMETHOPRIM 32996614809 No Longer Active Myrna Roberto MD Active VICKS DAYQUIL SEVERE COLD/FLU TABLET 1 tab every 6 hours prn 201 02/22/17 [id number] TABS 02696800551 No Longer Active Chris Roberto MD Active GUAIFENESIN-CODEINE 100-10 MG/5ML ORAL SYRUP 2 tsp every 6 hours prn GUAIFENESIN-CODEINE 78819395075 No Longer Active Myrna Roberto MD Active NAPROXEN 500 MG ORAL TABLET one tab PO BID NAPR OXEN 11325288952 No Longer Active Myrna Roberto MD Active AUGMENTIN 875-125 MG ORAL TABLET 1 tab by mouth twice daily with food AMOXICILLIN-POT CLAVULANATE 45116926236 No Longer Act zaid Liliana Estrada MD PhD Active AMOXICILLIN 500 MG ORAL CAPSULE 1 tab by mouth 3 times daily 201 02/21/05 AMOXICILLIN 76847222024 No Longer Active Liliana Estrada MD PhD Active TESSALON PERLES 100 MG ORAL CAPSULE 1 tablet by mouth 3 times da cory BENZONATATE 50588133572 No Longer Active Liliana Estrada MD PhD Active FLAGYL 500 MG ORAL TABLET 1 tablet by mouth two times daily 2014 METRONIDAZOLE 40488657062 No Longer Active Nilam Doran tive ZITHROMAX 250 MG ORAL TABLET 2 po today, then 1 po q days 2-5 20 06/08/16 AZITHROMYCIN 14836761266 No Longer Active Arie Casper MD Active VITAMINS 0.8 MG ORAL TABLET take 1 tab po qday [id number] 10555238968 No Longer Active Arie Casper MD Active IBUPROFEN 800 MG ORAL TABLET take one po Q 8 hours 201 02/01/16 IBUPROFEN 10985732806 No Longer Active Arie Casper MD Acti ve [facility] TUSSIN COUGH/COLD CF 5-10-100 MG/5ML ORAL LIQUID 2 teasp oons every 4 hours [id number] 35180382558 No Longer Active Blaine Casper MD Active COMTREX COLD/COUGH DAY/NITE MS 5-2-10-325 MG ORAL 2 caps deja ry 4 hours [id number] 71055450943 No Longer Active Da aleksandra Casper MD Active CHLORASEPTIC MAX SORE THROAT 15-10 MG MOUTH/THROAT LOZENGE 1 every 2 hours prn BENZOCAINE-MENTHOL 16131375593 No Longer Active Arie Casper MD Active PREDNISONE 20 MG ORAL TABLET 2 tabs daily for 3 days, 1 tab daily for 3 days, 1/2 tab daily for 2 days PREDNISONE 24276759125 No Longer Active Jose Zhong MD Active AZITHROMYCIN 250 MG ORAL TABLET 2 po qd x 1 day, then 1 po q d x 4 days AZITHROMYCIN 49570402807 No Longer Active Jose Mcwilliams MD Active ZOFRAN ODT 4 MG ORAL TABLET DISINTEGRATING 1 po q6hr PRN Nausea ONDANSETRON 23211149525 No Longer Active Rich Rosales MD Active ZOFRAN 4 MG ORAL TABLET 1 tablet every 4 hours ONDANSETRON HCL 48711929553 No Longer Active Rich Rosales MD Activ e MUCINEX 600 MG ORAL TABLET EXTENDED RELEASE 12 HOUR Ta ke 1-2 tablets every 12 hours GUAIFENESIN 33991806247 No Longer Active Rich Rosales MD Active BACTRIM 400-80 MG ORAL TABLET take one po BID SULFAMETHOXAZOLE-TRIMETHOPRIM 93316983297 No Longer Active Abelardo HERNANDEZ Active AZITHROMYCIN 500 MG ORAL TABLET 1 PO q day x 6 days 20 03/02/23 AZITHROMYCIN 40390936343 No Longer Active Tin HERNANDEZ Activ e ZITHROMAX 250 MG ORAL TABLET 2 po today, then 1 po q days 2-5 20 10/03/08 AZITHROMYCIN 62464572273 No Longer Active Arie Casper MD Active ZITHROMAX 250 MG ORAL TABLET 2 po today, then 1 po q days 2-5 20 09/23/25 AZITHROMYCIN 17087554226 No Longer Active Arie Casper MD Active AMOXICILLIN 500 MG ORAL CAPSULE 1 tab by mouth 3 times daily 201 11/24/09 AMOXICILLIN 54664105057 No Longer Active Arie Casper MD Active BACTRIM DS 800-160 MG ORAL TABLET 1 tab by mouth twice daily 201 11/03/14 TRIMETHOPRIM-SULFAMETHOXAZOLE 92124805364 No Longer Active Fozia Casper MD Active AMOXICILLIN 500 MG ORAL TABLET take 1 tab po TID 08/05 AMOXICILLIN 33503451724 No Longer Active Arie Casper MD Acti ve BACTRIM DS 800-160 MG ORAL TABLET 1 tab by mouth twice daily 201 11/03/14 BACTRIM DS 800-160 MG ORAL TABLET 242587 TRIMETHOPRIM-SULFAMETHOXAZOLE Inactive MUCINEX 600 MG ORAL TABLET EXTENDED RELEASE 12 HOUR Ta ke 1-2 tablets every 12 hours MUCINEX 600 MG ORAL TABLET EXTENDED RELEA SE 12 HOUR GUAIFENESIN Inactive ZOFRAN 4 MG ORAL TABLET 1 tablet every 4 hours ZOFRAN 4 MG ORAL TABLET 648334 ONDANSETRON HCL Inactive ZOFRAN ODT 4 MG ORAL TABLET DISINTEGRATING 1 po q6hr PRN Nausea ZOFRAN ODT 4 MG ORAL TABLET DISINTEGRATING 949332 ONDAN SETRON Inactive CHLORASEPTIC MAX SORE THROAT 15-10 MG MOUTH/THROAT LOZENGE 1 every 2 hours prn CHLORASEPTIC MAX SORE THROAT 15-10 MG MOUTH/THROAT LOZENGE BENZOCAINE-MENTHOL Inactive COMTREX COLD/COUGH DAY/NITE MS 5-2-10-325 MG ORAL 2 caps deja ry 4 hours COMTREX COLD/COUGH DAY/NITE MS 5-2-10-325 MG ORA L [id number] Inactive [facility] TUSSIN COUGH/COLD CF 5-10-100 MG/5ML ORAL LIQUID 2 teasp oons every 4 hours [facility] TUSSIN COUGH/COLD CF 5-10-100 MG/5ML ORAL LI QUID [id number] Inactive IBUPROFEN 800 MG ORAL TABLET take one po Q 8 hours 201 02/01/16 IBUPROFEN 800 MG ORAL TABLET IBUPROFEN Inactive VITAMINS 0.8 MG ORAL TABLET take 1 tab po qday VITAMINS 0.8 MG ORAL TABLET [id number] E-FA Inactive TESSALON PERLES 100 MG ORAL CAPSULE 1 tablet by mouth 3 times da cory TESSALON PERLES 100 MG ORAL CAPSULE 801110 BENZONATATE Inactive AMOXICILLIN 500 MG ORAL CAPSULE 1 tab by mouth 3 times daily 201 02/21/05 AMOXICILLIN 500 MG ORAL CAPSULE 062717 AMOXICILLIN Inactive GUAIFENESIN-CODEINE 100-10 MG/5ML ORAL SYRUP 2 tsp every 6 hours prn GUAIFENESIN-CODEINE 100-10 MG/5ML ORAL SYRUP 954251 GUAIFENESIN-CODEINE Inactive VICKS DAYQUIL SEVERE COLD/FLU TABLET 1 tab every 6 hours prn 201 02/22/17 VICKS DAYQUIL SEVERE COLD/FLU TABLET PHENYLEPHRI RG-UO-RO-APAP TABS Inactive BACTRIM DS 800-160 MG ORAL TABLET 1 twice a day 05/30 BACTRIM DS 800-160 MG ORAL TABLET 739772 SULFAMETHOXAZOLE-TRIMETHOPRIM Inactiv e PROMETHAZINE HCL 25 MG ORAL TABLET 1 four times a day as nee ded for vomiting PROMETHAZINE HCL 25 MG ORAL TABLET 873318 PROMETHAZINE HCL Inactive ZYRTEC ALLERGY 10 MG ORAL CAPSULE 1 po qd ZYRTEC ALLERGY 10 MG ORAL CAPSULE CETIRIZINE HCL Inactive MACROBID 100 MG ORAL CAPSULE 1 cap by mouth twice daily MACROBID 100 MG ORAL CAPSULE 6711594 NITROFURANTOIN MONOHYD MACRO In active LOMOTIL 2.5-0.025 MG ORAL TABLET 1 to 2 four times a day as needed for diarrhea LOMOTIL 2.5-0.025 MG ORAL TABLET 9885636 DIPHENOXYLATE-ATROPINE Inactive CYCLOBENZAPRINE HCL 10 MG ORAL TABLET 1/2 - 1 tablet b y mouth three times daily as needed for muscle spasm/pain CYCLOBEN ZAPRINE HCL 10 MG ORAL TABLET 553490 CYCLOBENZAPRINE HCL Inactive AMOXICILLIN 500 MG ORAL TABLET 2 tabs twice a day for 10 days 20 07/09/11 AMOXICILLIN 500 MG ORAL TABLET 867634 AMOXICILLIN I nactive LOMOTIL 2.5-0.025 MG ORAL TABLET 1 to 2 four times a day as needed for diarrhea LOMOTIL 2.5-0.025 MG ORAL TABLET 2154755 DIPHENOXYLATE-ATROPINE Inactive ZOFRAN 4 MG ORAL TABLET 1 TAB PO Q 6 HRS PRN NAUSEA 20 07/10/15 ZOFRAN 4 MG ORAL TABLET 377504 ONDANSETRON HCL Inactive CITRATE OF MAGNESIA ORAL SOLUTION 1 bottle today for constipatio n CITRATE OF MAGNESIA ORAL SOLUTION 3599857 MAGNESIUM CITR ATE Inactive PROMETHAZINE HCL 12.5 MG ORAL TABLET 1 tablet by mouth every 6 hours as needed for nausea/vomiting PROMETHAZINE HCL 12.5 MG ORA L TABLET 770650 PROMETHAZINE HCL Inactive PREDNISONE 20 MG ORAL TABLET 1 tablet twice daily for 2 days, then 1 tablet once daily for 2 days PREDNISONE 20 MG ORAL TABLET 915143 PREDNISONE Inactive ALPRAZOLAM 0.25 MG ORAL TABLET 1 tablet by mouth every 8 hours as needed for stress ALPRAZOLAM 0.25 MG ORAL TABLET 030104 ALPRA ZOLAM Inactive FLONASE 50 MCG/ACT NASAL SUSPENSION 1 spray each nostr il twice daily for allergies and runny nose until gone FLON ASE 50 MCG/ACT NASAL SUSPENSION 4327290 FLUTICASONE PROPIONATE Inactive PREDNISONE 20 MG ORAL TABLET 1 tablet daily for airway inflammat ion PREDNISONE 20 MG ORAL TABLET 019861 PREDNISONE [place] ctive NAPROXEN 500 MG ORAL TABLET Take 1 tab BID NAPROXEN 500 MG ORAL TABLET 432095 NAPROXEN Inactive ZOLOFT 50 MG ORAL TABLET 1 tablet by mouth daily 12/08 ZOLOFT 50 MG ORAL TABLET 187759 SERTRALINE HCL Inactive LOMOTIL 2.5-0.025 MG ORAL TABLET 1 tab po four times a day as needed for diarrhea LOMOTIL 2.5-0.025 MG ORAL TABLET 9548394 DIPHENOXYLATE-ATROPINE Inactive CETIRIZINE HCL 10 MG ORAL TABLET 1 po qd PRN Allergies CETIRIZINE HCL 10 MG ORAL TABLET 0786089 CETIRIZINE HCL Inactiv e TUSSIONEX PENNKINETIC ER 10-8 MG/5ML ORAL SUSPENSION E XTENDED RELEASE 5ml po q12hr PRN Cough TUSSIONEX PENNKINETI C ER 10-8 MG/5ML ORAL SUSPENSION EXTENDED RELEASE HYDROCOD POLST-CHLORPHEN POLST I nactive NEXPLANON IMPLANT right arm subcutaneously NEXPLANON IMPLANT ETONOGESTREL IMPL Inactive PROTONIX 40 MG ORAL TABLET DELAYED RELEASE 1 po q a.m. PROTONIX 40 MG ORAL TABLET DELAYED RELEASE 936832 PANTOPRAZOLE SODI UM Inactive CHERATUSSIN AC 100-10 MG/5ML ORAL SYRUP 1 tsp by mouth every 4 hours as needed for cough CHERATUSSIN AC 100-10 MG/5ML ORAL SYRUP 9 10103 GUAIFENESIN-CODEINE Inactive GUAIFENESIN DM 400-20 MG ORAL [...] TID 08/05 AMOXICILLIN 500 MG ORAL TABLET 045169 AMOXICILLIN Inactive AMOXICILLIN 500 MG ORAL CAPSULE 1 tab by mouth 3 times daily 201 11/24/09 AMOXICILLIN 500 MG ORAL CAPSULE 426027 AMOXICILLIN Inactive ZITHROMAX 250 MG ORAL TABLET 2 po today, then 1 po q days 2-5 20 09/23/25 ZITHROMAX 250 MG ORAL TABLET 624039 AZITHROMYCIN [place] ctive ZITHROMAX 250 MG ORAL TABLET 2 po today, then 1 po q days 2-5 20 10/03/08 ZITHROMAX 250 MG ORAL TABLET 174184 AZITHROMYCIN [place] ctive AZITHROMYCIN 500 MG ORAL TABLET 1 PO q day x 6 days 03/02/23 AZITHROMYCIN 500 MG ORAL TABLET 8860701 AZITHROMYCIN Inactive BACTRIM 400-80 MG ORAL TABLET take one po BID BACTRIM 400- 80 MG ORAL TABLET 046595 SULFAMETHOXAZOLE-TRIMETHOPRIM Inactive AZITHROMYCIN 250 MG ORAL TABLET 2 po qd x 1 day, then 1 po q d x 4 days AZITHROMYCIN 250 MG ORAL TABLET 269673 AZITHROMY ALLISON Inactive PREDNISONE 20 MG ORAL TABLET 2 tabs daily for 3 days, 1 tab daily for 3 days, 1/2 tab daily for 2 days PREDNISONE 20 MG ORAL T ABLET 894007 PREDNISONE Inactive ZITHROMAX 250 MG ORAL TABLET 2 po today, then 1 po q days 2-5 20 06/08/16 ZITHROMAX 250 MG ORAL TABLET 488154 AZITHROMYCIN [place] ctive FLAGYL 500 MG ORAL TABLET 1 tablet by mouth two times daily 2014 FLAGYL 500 MG ORAL TABLET 939056 METRONIDAZOLE Inacti ve AUGMENTIN 875-125 MG ORAL TABLET 1 tab by mouth twice daily with food AUGMENTIN 875-125 MG ORAL TABLET 289382 AMOXICIL ELSA-POT CLAVULANATE Inactive NAPROXEN 500 MG ORAL TABLET one tab PO BID NAPROXEN 500 MG ORAL TABLET 420016 NAPROXEN Inactive PREDNISONE 20 MG ORAL TABLET 2 tabs daily for 3 days, 1 tab daily for 3 days, 1/2 tab daily for 2 days PREDNISONE 20 MG ORAL T ABLET 319740 PREDNISONE Inactive AZITHROMYCIN 250 MG ORAL TABLET 2 po qd x 1 day, then 1 po q d x 4 days AZITHROMYCIN 250 MG ORAL TABLET 483000 AZITHROMY ALLISON Inactive PREDNISONE 20 MG ORAL TABLET 2 tabs daily for 3 days, 1 tab daily for 3 days, 1/2 tab daily for 2 days PREDNISONE 20 MG ORAL T ABLET 965899 PREDNISONE Inactive ZITHROMAX Z-EMIL 250 MG ORAL TABLET 2 today, then 1 daily for 4 d ays ZITHROMAX Z-EMIL 250 MG ORAL TABLET 095848 AZITHROMYCIN Inactive CEFDINIR 300 MG ORAL CAPSULE [...] days PREDNISONE 20 MG ORAL T ABLET 242350 PREDNISONE Inactive BACTRIM DS 800-160 MG ORAL TABLET 1 tab by mouth twice daily 201 05/02/30 BACTRIM DS 800-160 MG ORAL TABLET 407566 TRIMETHOPRIM-SULFAMETHOXAZOLE Inactive ZITHROMAX Z-EMIL 250 MG ORAL TABLET 2 today, then 1 daily for 4 d ays ZITHROMAX Z-EMIL 250 MG ORAL TABLET 800389 AZITHROMYCIN Inactive TAMIFLU 75 MG ORAL CAPSULE 1 po BID x 5 days 0 TAMIFLU 75 MG ORAL CAPSULE 507068 OSELTAMIVIR PHOSPHATE Inactive CEFDINIR 300 MG ORAL CAPSULE 1 po BID x 10 days 2018/01/03 CEFDINIR 300 MG ORAL CAPSULE 650556 CEFDINIR Inactive ZITHROMAX Z-EMIL 250 MG TABS Take two tablets today and then 1 tablet daily for 4 days ZITHROMAX Z-EMIL 250 MG TABS 939345 AZITHROM YCIN Inactive Advance Directives Directive Description [...] Negative Encounters Code Encounter Date Provider Facility CPT-46753 Level 3 Est. Patient 11:49:34 CHEESEMAKER Jessica boyd [facility] CPT-50080 Level 3 Est. Patient 14:55:50 CHEESEMAKER Jose Zhong MD [facility] CPT-13233 Level 3 Est. Patient 10:21:41 CHEESEMAKER Arie mcqueen MD [facility]-62755 Level 3 Est. Patient 11:35:15 CHEESEMAKER Arie mcqueen MD [facility]-64459 Level 3 Est. Patient 15:40:28 CDT Brii Are [facility] CPT-19495 Level 3 Est. Patient 16:40:36 CDT Arie mcqueen MD [facility] CPT-26989 Level 4 Est. Patient 15:29:22 CHEESEMAKER Arie mcqueen MD [facility]-75208 Level 3 Est. Patient 15:18:16 CHEESEMAKER Jono black DO [facility] CPT-62754 Level 4 Est. Patient 12:08:40 CHEESEMAKER Brii Are [facility]-74787 Level 3 Est. Patient 09:24:42 CDT Brii Are [facility] CPT-72369 Level 3 Est. Patient 09:12:56 CDT Arie mcqueen MD [facility] CPT-87400 Level 3 Est. Patient 16:40:54 CDT Jose Zhong MD [facility] CPT-66411 Level 2 Est. Patient 13:01:13 CDT Brii Are ll [facility] CPT-81203 Level 3 Est. Patient 11:55:30 CHEESEMAKER Jono Cheema ee DO [facility] CPT-08436 Level 3 Est. Patient 09:52:36 CHEESEMAKER Brii Are ll [facility][note 3] CPT-20340 Level 3 Est. Patient 16:25:33 CHEESEMAKER Rich Rosales MD [facility] CPT-87978 Level 3 Est. Patient 20:33:55 CDT Arie mcqueen MD [facility] CPT-08798 Level 3 Est. Patient 14:18:20 CDT Rich Rosales MD [facility] CPT-36582 Level 4 Est. Patient 09:34:31 CDT Arie mcqueen MD [facility] CPT-31818 Level 3 Est. Patient 09:08:55 CHEESEMAKER Liliana vincent MD PhD [facility] CPT-13851 Level 3 Est. Patient 16:44:07 CHEESEMAKER Arie mcqueen MD [facility] CPT-02178 Level 3 Est. Patient 10:44:27 CDT Arie mcqueen MD [facility] CPT-62779 Level 3 Est. Patient 08:55:41 CDT Jose Zhong MD [facility] CPT-41350 Level 3 Est. Patient 18:37:31 CDT Liliana vincent MD PhD [facility] CPT-93013 Level 3 Est. Patient 14:28:23 CDT Abelardo HERNANDEZ [facility] CPT-71777 Level 3 Est. Patient 15:18:13 CHEESEMAKER Arie mcqueen MD [facility] CPT-46284 Level 3 Est. Patient 10:11:29 CHEESEMAKER Arie mcqueen MD [facility] CPT-54087 Level 3 Est. Patient 10:55:57 CHEESEMAKER Jono black DO [facility] CPT-97968 Level 3 Est. Patient 17:29:05 CDT Arie mcqueen MD [facility] Procedures Code Procedure Name Date Entry Date Standard Desc ription CPT-90557 Nexplanon Removal 15:40:28 CDT CPT-63380 Sono transvag pelvis non OB uterus ovari es cervix - XRAY USE ONLY 08:58:14 CHEESEMAKER CPT-67978 UA w micro - LAB USE ONLY 16:04:56 CHEESEMAKER 2015 CPT-95691 Wet Prep/GEN - LAB USE ONLY 16:04:56 CHEESEMAKER 20 08/10/29 CPT-33177 First Vx - Ix admin via ID I M or jet injects without counseling by physician 16:57:10 CDT CPT-71742 Fluzone Preservative Free Intramuscular Suspension 16:57:10 CDT CPT-J0696 Rocephin 1000 mg (Ceftriaxone) 11:49:23 CDT CPT-J1040 Depo Medrol 80 mg (Methyl Prednisolone A cetate) 11:49:23 CDT CPT-J1100 Decadron 8mg (Dexamethasone) 11:49:23 CDT 2 CPT-77534 Abx/Therapy Injection 11:49:23 CDT CPT-57291 Abx/Therapy Injection 11:49:23 CDT CPT-48313 Abd compl w upright 09:07:26 CHEESEMAKER CPT-38010 Ear Wash 16:12:47 CHEESEMAKER CPT-OV Office Visit 11:12:01 CDT CPT-OV Office Visit 15:30:23 CDT CPT-29886 Sono pelvis non OB uterus ovaries cervix 15:50:44 CDT CPT-83858 Hand comp min 3V 16:42:32 CDT CPT-96988 Abd compl w upright 12:17:01 CDT CPT-67188 Nexplanon Placement 15:07:39 CHEESEMAKER CPT-66137 Removal of IUD 15:07:39 CHEESEMAKER CPT-87532 TB Tubersol 12:09:32 CDT CPT-63747 TB Tubersol 13:55:43 CDT
--- OUTSIDE RECORDS SUMMARY | 2020-03-03 08:17 | XMS REPORT | Clinical Summary ---
Author Author Admin, Diamante Marcelo Organization [facility] Address Unknown Phone Unavailable Allergies, Adverse Reactions, [...] cute pharyngitis Nausea 787.02 Active Brii Larson DIE TECHNICIAN Nausea alone URI 465.9 Active Jono Gagnon DO Acu te upper respiratory infections of unspecified site Allergic rhinitis 477.9 Active Brii Christianson PRN Allergic rhinitis, cause unspecified Abdominal pain, right lower quadrant 789.03 Active Jose Zhong MD Abdominal pain, right lower quadrant Urinary frequency 788.41 Inactive Roseann Crawford Urinary frequency Urinary frequency 788.41 Active 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, BARREL LAPPER Urinary frequency Sinusitis - acute 461.9 Active Brii Christianson PRN Acute sinusitis, unspecified Anxiety with depression 300.4 Active Glenn Larson DIE TECHNICIAN Dysthymic disorder URI 465.9 Active Jono Gagnon DO Acu te upper respiratory infections of unspecified site Vaginal bleeding 623.8 Active Brii MARROQUIN RN Other specified noninflammatory disorders of vagina High risk sexual behavior V69.2 Active Arie Casper MD High-risk sexual behavior GERD 530.81 Active Arie Casper MD Esophageal reflux Encounter for surveillance of implantable subdermal contraceptiv e Active Brii Neo DIE TECHNICIAN Vaginal bleeding 623.8 Active Arie Casper MD [...] RELEASE 1 po q a.m. PANTOPRAZOLE SODIUM 16844309915 No Longer Active Arie Casper MD Active BACTRIM DS 800-160 MG ORAL TABLET 1 tab by mouth twice daily 201 05/02/30 TRIMETHOPRIM-SULFAMETHOXAZOLE 60549268729 No Longer Active R [facility] Ty Active NEXPLANON IMPLANT right arm subcutaneously ETONOGESTREL IMPL 01874435932 No Longer Active Brii Larson APRN Acti ve TUSSIONEX PENNKINETIC ER 10-8 MG/5ML ORAL SUSPENSION E XTENDED RELEASE 5ml po q12hr PRN Cough HYDROCOD POLST-CHLORPHEN POLST 5 4768627559 No Longer Active Brii Larson APRN Active CETIRIZINE HCL 10 MG ORAL TABLET 1 po qd PRN Allergies CETIRIZINE HCL 82185081297 No Longer Active Brii Larson APRN Ac tive PREDNISONE 20 MG ORAL TABLET 2 tabs daily for 3 days, 1 tab daily for 3 days, 1/2 tab daily for 2 days PREDNISONE 93481615258 No Longer Active Arie Casper MD Active LOMOTIL 2.5-0.025 MG ORAL TABLET 1 tab po four times a day as needed for diarrhea DIPHENOXYLATE-ATROPINE 78121619071 No Lo nger Active Arie Casper MD Active ZOLOFT 50 MG ORAL TABLET 1 tablet by mouth daily 12/08 SERTRALINE HCL 82504356386 No Longer Active Arie Casper MD Ac tive NAPROXEN 500 MG ORAL TABLET Take 1 tab BID NAPR OXEN 47157645155 No Longer Active Arie Casper MD Active CEFDINIR 300 MG ORAL CAPSULE 1 po BID x 10 days CEFDINIR 94454982397 No Longer Active Brii Larson APRN Active PREDNISONE 20 MG ORAL TABLET 1 tablet daily for airway inflammat ion PREDNISONE 77910425828 No Longer Active Brii Larson APRN Active CEFDINIR 300 MG ORAL CAPSULE 1 po BID x 10 days CEFDINIR 34906682509 No Longer Active Jono Gagnon DO Active FLONASE 50 MCG/ACT NASAL SUSPENSION 1 spray each nostr il twice daily for allergies and runny nose until gone FLUT ICASONE PROPIONATE 66949475348 No Longer Active Jono Gagnon DO Active ALPRAZOLAM 0.25 MG ORAL TABLET 1 tablet by mouth every 8 hours as needed for stress ALPRAZOLAM 49216541997 No Longer Active Jono Gagnon DO Active ZITHROMAX Z-EMIL 250 MG ORAL TABLET 2 today, then 1 daily for 4 d ays AZITHROMYCIN 12898409665 No Longer Active Arie Casper MD Active PREDNISONE 20 MG ORAL TABLET 2 tabs daily for 3 days, 1 tab daily for 3 days, 1/2 tab daily for 2 days PREDNISONE 45512262790 No Longer Active Brii Larson APRN Active PREDNISONE 20 MG ORAL TABLET 1 tablet twice daily for 2 days, then 1 tablet once daily for 2 days PREDNISONE 78839053540 No Longer Active Brii Larson APRN Active PROMETHAZINE HCL 12.5 MG ORAL TABLET 1 tablet by mouth every 6 hours as needed for nausea/vomiting PROMETHAZINE HCL 96021926038 No L onger Active Jono Gagnon DO Active CITRATE OF MAGNESIA ORAL SOLUTION 1 bottle today for constipatio n MAGNESIUM CITRATE 10327905421 No Longer Active Jono Gagnon DO Active ZOFRAN 4 MG ORAL TABLET 1 TAB PO Q 6 HRS PRN NAUSEA 07/10/15 ONDANSETRON HCL 81950456672 No Longer Active Brii Larson APRN A ctive LOMOTIL 2.5-0.025 MG ORAL TABLET 1 to 2 four times a day as needed for diarrhea DIPHENOXYLATE-ATROPINE 73732681561 No Longer Active January Larson APRN Active AMOXICILLIN 500 MG ORAL TABLET 2 tabs twice a day for 10 days 20 07/09/11 AMOXICILLIN 47495100899 No Longer Active Brii Larson APRN Active CYCLOBENZAPRINE HCL 10 MG ORAL TABLET 1/2 - 1 tablet b y mouth three times daily as needed for muscle spasm/pain CYCLOBENZAPRINE HCL 16107233423 No Longer Active Arie Casper MD Active LOMOTIL 2.5-0.025 MG ORAL TABLET 1 to 2 four times a day as needed for diarrhea DIPHENOXYLATE-ATROPINE 76046825189 No Longer Active D freddy Casper MD Active MACROBID 100 MG ORAL CAPSULE 1 cap by mouth twice daily NITROFURANTOIN MONOHYD MACRO 35597770552 No Longer Active Arie Casper MD Active ZYRTEC ALLERGY 10 MG ORAL CAPSULE 1 po qd CE TIRIZINE HCL 84397483135 No Longer Active Arie Casper MD Active AZITHROMYCIN 250 MG ORAL TABLET 2 po qd x 1 day, then 1 po q d x 4 days AZITHROMYCIN 35312498298 No Longer Active Jessica salgado DIE TECHNICIAN Active PREDNISONE 20 MG ORAL TABLET 2 tabs daily for 3 days, 1 tab daily for 3 days, 1/2 tab daily for 2 days PREDNISONE 79535702365 No Longer Active Jessica Heaton DIE TECHNICIAN Active PROMETHAZINE HCL 25 MG ORAL TABLET 1 four times a day as nee ded for vomiting PROMETHAZINE HCL 63580071276 No Longer Active Myrna Roberto MD Active BACTRIM DS 800-160 MG ORAL TABLET 1 twice a day 05/30 SULFAMETHOXAZOLE-TRIMETHOPRIM 08944168893 No Longer Active Myrna Roberto MD Active VICKS DAYQUIL SEVERE COLD/FLU TABLET 1 tab every 6 hours prn 201 02/22/17 [id number] TABS 92076153435 No Longer Active Chris Roberto MD Active GUAIFENESIN-CODEINE 100-10 MG/5ML ORAL SYRUP 2 tsp every 6 hours prn GUAIFENESIN-CODEINE 74077474692 No Longer Active Myrna Roberto MD Active NAPROXEN 500 MG ORAL TABLET one tab PO BID NAPR OXEN 13794713650 No Longer Active Myrna Roberto MD Active AUGMENTIN 875-125 MG ORAL TABLET 1 tab by mouth twice daily with food AMOXICILLIN-POT CLAVULANATE 06286572534 No Longer Act zaid Liliana Estrada MD PhD Active AMOXICILLIN 500 MG ORAL CAPSULE 1 tab by mouth 3 times daily 201 02/21/05 AMOXICILLIN 13089655180 No Longer Active Liliana Estrada MD PhD Active TESSALON PERLES 100 MG ORAL CAPSULE 1 tablet by mouth 3 times da cory BENZONATATE 73457770647 No Longer Active Liliana Estrada MD PhD Active FLAGYL 500 MG ORAL TABLET 1 tablet by mouth two times daily 2014 METRONIDAZOLE 56252742374 No Longer Active Nilam Weber Ac tive ZITHROMAX 250 MG ORAL TABLET 2 po today, then 1 po q days 2-5 20 06/08/16 AZITHROMYCIN 05769305830 No Longer Active Arie Casper MD Active VITAMINS 0.8 MG ORAL TABLET take 1 tab po qday [id number] 21385287585 No Longer Active Arie Casper MD Active IBUPROFEN 800 MG ORAL TABLET take one po Q 8 hours 201 02/01/16 IBUPROFEN 40304630095 No Longer Active Arie Casper MD Acti ve [facility] TUSSIN COUGH/COLD CF 5-10-100 MG/5ML ORAL LIQUID 2 teasp oons every 4 hours [id number] 15339097233 No Longer Active Blaine Casper MD Active COMTREX COLD/COUGH DAY/NITE MS 5-2-10-325 MG ORAL 2 caps deja ry 4 hours [id number] 53996448539 No Longer Active Landon Casper MD Active CHLORASEPTIC MAX SORE THROAT 15-10 MG MOUTH/THROAT LOZENGE 1 every 2 hours prn BENZOCAINE-MENTHOL 96235060158 No Longer Active Arie Casper MD Active PREDNISONE 20 MG ORAL TABLET 2 tabs daily for 3 days, 1 tab daily for 3 days, 1/2 tab daily for 2 days PREDNISONE 38365033436 No Longer Active Jose Zhong MD Active AZITHROMYCIN 250 MG ORAL TABLET 2 po qd x 1 day, then 1 po q d x 4 days AZITHROMYCIN 80751062357 No Longer Active Jose Mcwilliams MD Active ZOFRAN ODT 4 MG ORAL TABLET DISINTEGRATING 1 po q6hr PRN Nausea ONDANSETRON 68803872625 No Longer Active Rich Rosales MD Active ZOFRAN 4 MG ORAL TABLET 1 tablet every 4 hours ONDANSETRON HCL 86871923763 No Longer Active Rich Rosales MD Activ e MUCINEX 600 MG ORAL TABLET EXTENDED RELEASE 12 HOUR Ta ke 1-2 tablets every 12 hours GUAIFENESIN 83784208001 No Longer Active Rich Rosales MD Active BACTRIM 400-80 MG ORAL TABLET take one po BID SULFAMETHOXAZOLE-TRIMETHOPRIM 79434973921 No Longer Active Abelardo HERNANDEZ Active AZITHROMYCIN 500 MG ORAL TABLET 1 PO q day x 6 days 20 03/02/23 AZITHROMYCIN 70527918218 No Longer Active Tin HERNANDEZ Activ e ZITHROMAX 250 MG ORAL TABLET 2 po today, then 1 po q days 2-5 20 10/03/08 AZITHROMYCIN 09448757581 No Longer Active Arie Casper MD Active ZITHROMAX 250 MG ORAL TABLET 2 po today, then 1 po q days 2-5 20 09/23/25 AZITHROMYCIN 97408673202 No Longer Active Arie Casper MD Active AMOXICILLIN 500 MG ORAL CAPSULE 1 tab by mouth 3 times daily 201 11/24/09 AMOXICILLIN 98346457351 No Longer Active Arie Casper MD Active BACTRIM DS 800-160 MG ORAL TABLET 1 tab by mouth twice daily 201 11/03/14 TRIMETHOPRIM-SULFAMETHOXAZOLE 47052971430 No Longer Active Fozia Casper MD Active AMOXICILLIN 500 MG ORAL TABLET take 1 tab po TID 08/05 AMOXICILLIN 43821981798 No Longer Active Arie Casper MD Acti ve BACTRIM DS 800-160 MG ORAL TABLET 1 tab by mouth twice daily 201 11/03/14 BACTRIM DS 800-160 MG ORAL TABLET 462420 TRIMETHOPRIM-SULFAMETHOXAZOLE Inactive MUCINEX 600 MG ORAL TABLET EXTENDED RELEASE 12 HOUR Ta ke 1-2 tablets every 12 hours MUCINEX 600 MG ORAL TABLET EXTENDED RELEA SE 12 HOUR GUAIFENESIN Inactive ZOFRAN 4 MG ORAL TABLET 1 tablet every 4 hours ZOFRAN 4 MG ORAL TABLET 890295 ONDANSETRON HCL Inactive ZOFRAN ODT 4 MG ORAL TABLET DISINTEGRATING 1 po q6hr PRN Nausea ZOFRAN ODT 4 MG ORAL TABLET DISINTEGRATING 088038 ONDAN SETRON Inactive CHLORASEPTIC MAX SORE THROAT 15-10 MG MOUTH/THROAT LOZENGE 1 every 2 hours prn CHLORASEPTIC MAX SORE THROAT 15-10 MG MOUTH/THROAT LOZENGE BENZOCAINE-MENTHOL Inactive COMTREX COLD/COUGH DAY/NITE MS 5-2-10-325 MG ORAL 2 caps deja ry 4 hours COMTREX COLD/COUGH DAY/NITE MS 5-2-10-325 MG ORA L [id number] Inactive [facility] TUSSIN COUGH/COLD CF 5-10-100 MG/5ML ORAL LIQUID 2 teasp oons every 4 hours [facility] TUSSIN COUGH/COLD CF 5-10-100 MG/5ML ORAL LI QUID [id number] Inactive IBUPROFEN 800 MG ORAL TABLET take one po Q 8 hours 201 02/01/16 IBUPROFEN 800 MG ORAL TABLET IBUPROFEN Inactive VITAMINS 0.8 MG ORAL TABLET take 1 tab po qday VITAMINS 0.8 MG ORAL TABLET [id number] E-FA Inactive TESSALON PERLES 100 MG ORAL CAPSULE 1 tablet by mouth 3 times da cory TESSALON PERLES 100 MG ORAL CAPSULE 232981 BENZONATATE Inactive AMOXICILLIN 500 MG ORAL CAPSULE 1 tab by mouth 3 times daily 201 02/21/05 AMOXICILLIN 500 MG ORAL CAPSULE 194653 AMOXICILLIN Inactive GUAIFENESIN-CODEINE 100-10 MG/5ML ORAL SYRUP 2 tsp every 6 hours prn GUAIFENESIN-CODEINE 100-10 MG/5ML ORAL SYRUP 271505 GUAIFENESIN-CODEINE Inactive VICKS DAYQUIL SEVERE COLD/FLU TABLET 1 tab every 6 hours prn 201 02/22/17 VICKS DAYQUIL SEVERE COLD/FLU TABLET PHENYLEPHRI [id number]-APAP TABS Inactive BACTRIM DS 800-160 MG ORAL TABLET 1 twice a day 05/30 BACTRIM DS 800-160 MG ORAL TABLET 203763 SULFAMETHOXAZOLE-TRIMETHOPRIM Inactiv e PROMETHAZINE HCL 25 MG ORAL TABLET 1 four times a day as nee ded for vomiting PROMETHAZINE HCL 25 MG ORAL TABLET 399557 PROMETHAZINE HCL Inactive ZYRTEC ALLERGY 10 MG ORAL CAPSULE 1 po qd ZYRTEC ALLERGY 10 MG ORAL CAPSULE CETIRIZINE HCL Inactive MACROBID 100 MG ORAL CAPSULE 1 cap by mouth twice daily MACROBID 100 MG ORAL CAPSULE 1553202 NITROFURANTOIN MONOHYD MACRO In active LOMOTIL 2.5-0.025 MG ORAL TABLET 1 to 2 four times a day as needed for diarrhea LOMOTIL 2.5-0.025 MG ORAL TABLET 8002886 DIPHENOXYLATE-ATROPINE Inactive CYCLOBENZAPRINE HCL 10 MG ORAL TABLET 1/2 - 1 tablet b y mouth three times daily as needed for muscle spasm/pain CYCLOBEN ZAPRINE HCL 10 MG ORAL TABLET 226660 CYCLOBENZAPRINE HCL Inactive AMOXICILLIN 500 MG ORAL TABLET 2 tabs twice a day for 10 days 20 07/09/11 AMOXICILLIN 500 MG ORAL TABLET 195882 AMOXICILLIN I nactive LOMOTIL 2.5-0.025 MG ORAL TABLET 1 to 2 four times a day as needed for diarrhea LOMOTIL 2.5-0.025 MG ORAL TABLET 1249277 DIPHENOXYLATE-ATROPINE Inactive ZOFRAN 4 MG ORAL TABLET 1 TAB PO Q 6 HRS PRN NAUSEA 20 07/10/15 ZOFRAN 4 MG ORAL TABLET 886399 ONDANSETRON HCL Inactive CITRATE OF MAGNESIA ORAL SOLUTION 1 bottle today for constipatio n CITRATE OF MAGNESIA ORAL SOLUTION 2297270 MAGNESIUM CITR ATE Inactive PROMETHAZINE HCL 12.5 MG ORAL TABLET 1 tablet by mouth every 6 hours as needed for nausea/vomiting PROMETHAZINE HCL 12.5 MG ORA L TABLET 622508 PROMETHAZINE HCL Inactive PREDNISONE 20 MG ORAL TABLET 1 tablet twice daily for 2 days, then 1 tablet once daily for 2 days PREDNISONE 20 MG ORAL TABLET 986060 PREDNISONE Inactive ALPRAZOLAM 0.25 MG ORAL TABLET 1 tablet by mouth every 8 hours as needed for stress ALPRAZOLAM 0.25 MG ORAL TABLET 234022 ALPRA ZOLAM Inactive FLONASE 50 MCG/ACT NASAL SUSPENSION 1 spray each nostr il twice daily for allergies and runny nose until gone FLON ASE 50 MCG/ACT NASAL SUSPENSION 6272052 FLUTICASONE PROPIONATE Inactive PREDNISONE 20 MG ORAL TABLET 1 tablet daily for airway inflammat ion PREDNISONE 20 MG ORAL TABLET 758412 PREDNISONE [place] ctive NAPROXEN 500 MG ORAL TABLET Take 1 tab BID NAPROXEN 500 MG ORAL TABLET 264287 NAPROXEN Inactive ZOLOFT 50 MG ORAL TABLET 1 tablet by mouth daily 12/08 ZOLOFT 50 MG ORAL TABLET 311016 SERTRALINE HCL Inactive LOMOTIL 2.5-0.025 MG ORAL TABLET 1 tab po four times a day as needed for diarrhea LOMOTIL 2.5-0.025 MG ORAL TABLET 5167240 DIPHENOXYLATE-ATROPINE Inactive CETIRIZINE HCL 10 MG ORAL TABLET 1 po qd PRN Allergies CETIRIZINE HCL 10 MG ORAL TABLET 9669121 CETIRIZINE HCL Inactiv e TUSSIONEX PENNKINETIC ER 10-8 MG/5ML ORAL SUSPENSION E XTENDED RELEASE 5ml po q12hr PRN Cough TUSSIONEX PENNKINETI C ER 10-8 MG/5ML ORAL SUSPENSION EXTENDED RELEASE HYDROCOD POLST-CHLORPHEN POLST I nactive NEXPLANON IMPLANT right arm subcutaneously NEXPLANON IMPLANT ETONOGESTREL IMPL Inactive PROTONIX 40 MG ORAL TABLET DELAYED RELEASE 1 po q a.m. PROTONIX 40 MG ORAL TABLET DELAYED RELEASE 365972 PANTOPRAZOLE SODI UM Inactive AMOXICILLIN 500 MG ORAL TABLET take 1 tab po TID 08/05 AMOXICILLIN 500 MG ORAL TABLET 419720 AMOXICILLIN Inactive AMOXICILLIN 500 MG ORAL CAPSULE 1 tab by mouth 3 times daily 201 11/24/09 AMOXICILLIN 500 MG ORAL CAPSULE 792729 AMOXICILLIN Inactive ZITHROMAX 250 MG ORAL TABLET 2 po today, then 1 po q days 2-5 20 09/23/25 ZITHROMAX 250 MG ORAL TABLET 646897 AZITHROMYCIN [place] ctive ZITHROMAX 250 MG ORAL TABLET 2 po today, then 1 po q days 2-5 20 10/03/08 ZITHROMAX 250 MG ORAL TABLET 630915 AZITHROMYCIN [place] ctive AZITHROMYCIN 500 MG ORAL TABLET 1 PO q day x 6 days 20 03/02/23 AZITHROMYCIN 500 MG ORAL TABLET 4473168 AZITHROMYCIN Inactive BACTRIM 400-80 MG ORAL TABLET take one po BID BACTRIM 400- 80 MG ORAL TABLET 092730 SULFAMETHOXAZOLE-TRIMETHOPRIM Inactive AZITHROMYCIN 250 MG ORAL TABLET 2 po qd x 1 day, then 1 po q d x 4 days AZITHROMYCIN 250 MG ORAL TABLET 676470 AZITHROMY ALLISON Inactive PREDNISONE 20 MG ORAL TABLET 2 tabs daily for 3 days, 1 tab daily for 3 days, 1/2 tab daily for 2 days PREDNISONE 20 MG ORAL T ABLET 740756 PREDNISONE Inactive ZITHROMAX 250 MG ORAL TABLET 2 po today, then 1 po q days 2-5 20 06/08/16 ZITHROMAX 250 MG ORAL TABLET 616502 AZITHROMYCIN [place] ctive FLAGYL 500 MG ORAL TABLET 1 tablet by mouth two times daily 2014 FLAGYL 500 MG ORAL TABLET 472697 METRONIDAZOLE Inacti ve AUGMENTIN 875-125 MG ORAL TABLET 1 tab by mouth twice daily with food AUGMENTIN 875-125 MG ORAL TABLET 243866 AMOXICIL ELSA-POT CLAVULANATE Inactive NAPROXEN 500 MG ORAL TABLET one tab PO BID NAPROXEN 500 MG ORAL TABLET 252156 NAPROXEN Inactive PREDNISONE 20 MG ORAL TABLET 2 tabs daily for 3 days, 1 tab daily for 3 days, 1/2 tab daily for 2 days PREDNISONE 20 MG ORAL T ABLET 527919 PREDNISONE Inactive AZITHROMYCIN 250 MG ORAL TABLET 2 po qd x 1 day, then 1 po q d x 4 days AZITHROMYCIN 250 MG ORAL TABLET 092948 AZITHROMY ALLISON Inactive PREDNISONE 20 MG ORAL TABLET 2 tabs daily for 3 days, 1 tab daily for 3 days, 1/2 tab daily for 2 days PREDNISONE 20 MG ORAL T ABLET 258744 PREDNISONE Inactive ZITHROMAX Z-EMIL 250 MG ORAL TABLET 2 today, then 1 daily for 4 d ays ZITHROMAX Z-EMIL 250 MG ORAL TABLET 387717 AZITHROMYCIN Inactive CEFDINIR 300 MG ORAL CAPSULE 1 po BID x 10 days 12/18 CEFDINIR 300 MG ORAL CAPSULE 951145 CEFDINIR Inactive CEFDINIR 300 MG ORAL CAPSULE 1 po BID x 10 days CEFDINIR 300 MG ORAL CAPSULE 510336 CEFDINIR Inactive PREDNISONE 20 MG ORAL TABLET 2 tabs daily for 3 days, 1 tab daily for 3 days, 1/2 tab daily for 2 days PREDNISONE 20 MG ORAL T ABLET 823600 PREDNISONE Inactive BACTRIM DS 800-160 MG ORAL TABLET 1 tab by mouth twice daily 201 05/02/30 BACTRIM DS 800-160 MG ORAL TABLET 610558 TRIMETHOPRIM-SULFAMETHOXAZOLE Inactive Advance Directives Directive Description Start [...] Unit Range Description Lab Report: [facility], [facility] H[facility] leukocyte count, blood 7.8 10^3/MM^3 [...] 263 10^3/MM^3 10*3/mm3 142-424 Lab Report: Chlamydia/GC APTIMA/64004 - Lab chlamydia DNA probe NOT DETECTED NOT DETECTED Lab Report: Chlamydia/GC [facility]TIMA/59516 - Microbiology Neisseria gonorrhoeae DNA probe NOT [...] 5.0-8.5 Encounters Code Encounter Date Provider Facility CPT-62805 Level 3 Est. Patient 11:35:15 NUT ROASTER HELPER Arie mcqueen MD [facility] CPT-34641 Level 3 Est. Patient 15:40:28 CDT [facility] CPT-44973 Level 3 Est. Patient 16:40:36 CDT Arie mcqueen MD [facility] CPT-12436 Level 4 Est. Patient 15:29:22 NUT ROASTER HELPER Arie mcqueen MD [facility] CPT-87644 Level 3 Est. Patient 15:18:16 NUT ROASTER HELPER Jono black DO [facility] CPT-93938 Level 4 Est. Patient 12:08:40 NUT ROASTER HELPER [facility] CPT-41621 Level 3 Est. Patient 09:24:42 CDT [facility] CPT-77201 Level 3 Est. Patient 09:12:56 CDT Arie mcqueen MD [facility] CPT-65114 Level 3 Est. Patient 16:40:54 CDT Jose Zhong MD [facility] CPT-56262 Level 2 Est. Patient 13:01:13 CDT Brii Sylwia PAREKHN [facility] CPT-15101 Level 3 Est. Patient 11:55:30 NUT ROASTER HELPER Jono black DO [facility] CPT-26264 Level 3 Est. Patient 09:52:36 NUT ROASTER HELPER Brii Sylwia PAREKHN [facility] CPT-24527 Level 3 Est. Patient 16:25:33 NUT ROASTER HELPER Rich Rosales MD [facility]-22884 Level 3 Est. Patient 20:33:55 CDT Arie cmqueen MD [facility] CPT-10074 Level 3 Est. Patient 14:18:20 CDT Rich Rosales MD [facility] CPT-60214 Level 4 Est. Patient 09:34:31 CDT Arie mcqueen MD [facility] CPT-29896 Level 3 Est. Patient 09:08:55 NUT ROASTER HELPER Liliana vincent MD PhD [facility]-62388 Level 3 Est. Patient 16:44:07 NUT ROASTER HELPER Arie mcqueen MD [facility] CPT-11740 Level 3 Est. Patient 10:44:27 CDT Arie mcqueen MD [facility] CPT-42350 Level 3 Est. Patient 08:55:41 CDT Jose Zhong MD [facility] CPT-78836 Level 3 Est. Patient 18:37:31 CDT Liliana vincent MD PhD [facility] CPT-83959 Level 3 Est. Patient 14:28:23 CDT Abelardo HERNANDEZ [facility] CPT-40850 Level 3 Est. Patient 15:18:13 NUT ROASTER HELPER Arie mcqueen MD [facility] CPT-02913 Level 3 Est. Patient 10:11:29 NUT ROASTER HELPER Arie mcqueen MD [facility] CPT-42449 Level 3 Est. Patient 10:55:57 NUT ROASTER HELPER Jono black DO [facility] CPT-48512 Level 3 Est. Patient 17:29:05 CDT Arie mcqueen MD [facility] Procedures Code Procedure Name Date Entry Date Standard Desc ription CPT-98621 Nexplanon Removal 15:40:28 CDT CPT-47847 Sono transvag pelvis non OB uterus ovari es cervix - XRAY USE ONLY 08:58:14 NUT ROASTER HELPER CPT-13809 UA w micro - LAB USE ONLY 16:04:56 NUT ROASTER HELPER 2015 CPT-65517 Wet Prep/GEN - LAB USE ONLY 16:04:56 NUT ROASTER HELPER 20 08/10/29 CPT-54359 First Vx - Ix admin via ID I M or jet injects without counseling by physician 16:57:10 CDT CPT-63982 Fluzone Preservative Free Intramuscular Suspension 16:57:10 CDT CPT-J0696 Rocephin 1000 mg (Ceftriaxone) 11:49:23 CDT CPT-J1040 Depo Medrol 80 mg (Methyl Prednisolone A cetate) 11:49:23 CDT CPT-J1100 Decadron 8mg (Dexamethasone) 11:49:23 CDT 2 CPT-89690 Abx/Therapy Injection 11:49:23 CDT CPT-13352 Abx/Therapy Injection 11:49:23 CDT CPT-58756 Abd compl w upright 09:07:26 NUT ROASTER HELPER CPT-74636 Ear Wash 16:12:47 NUT ROASTER HELPER CPT-OV Office Visit 11:12:01 CDT CPT-OV Office Visit 15:30:23 CDT CPT-90565 Sono pelvis non OB uterus ovaries cervix 15:50:44 CDT CPT-50743 Hand comp min 3V 16:42:32 CDT CPT-34788 Abd compl w upright 12:17:01 CDT CPT-37577 Nexplanon Placement 15:07:39 NUT ROASTER HELPER CPT-40209 Removal of IUD 15:07:39 NUT ROASTER HELPER CPT-34999 TB Tubersol 12:09:32 CDT CPT-31817 TB Tubersol 13:55:43 CDT
--- OUTSIDE RECORDS SUMMARY | 2020-03-03 08:18 | XMS REPORT | Clinical Summary ---
[...] PhD Cystitis, unspecified SINUSITIS 473.9 Resolved Liliana Etsrada MD PhD Unspecified sinusitis (chronic) CONTRACEPTIVE MANAGEMENT [...] cute pharyngitis Nausea 787.02 Active Brii Larson [employer] ADDED ASSESSOR Nausea alone URI 465.9 Active Jono Gagnon [...] Anxiety with depression 300.4 Active Glenn Larson [employer] VALUE ADDED ASSESSOR Dysthymic disorder URI 465.9 Active Jono Gagnon [...] MG TAB Take 1 tab BID NAPROXEN 320062482 15 Active Brii Larson APRN Active NEXPLANON IMPL Left arm subcutaneously ETONOGES TREL IMPL 93363258372 Active Brii Larson APRN Active CEFDINIR 300 MG CAPS 1 po BID x 10 days CEFDINI R 10389056414 Active Brii Larson APRN Active PREDNISONE 20 MG TAB 1 tablet daily for airway inflammation 2015 PREDNISONE 38337667454 No Longer Active Brii Larson APRN Active CEFDINIR 300 MG CAPS 1 po BID x 10 days CEFDINI R 34499552119 No Longer Active Jono Gagnon DO Active FLONASE 50 MCG/ACT SUSP 1 spray each nostril twice d aily for allergies and runny nose until gone FLUTICASONE PROPIONATE No Longe r Active Jono Gagnon DO Active ALPRAZOLAM 0.25 MG TAB 1 tablet by mouth every 8 hours as ne eded for stress ALPRAZOLAM 66411786872 No Longer Active Joon Gagnon DO Active ZOLOFT 50 MG TAB 1 tablet by mouth daily SERTRA LINE HCL 11501861698 Active Arie Casper MD Active LOMOTIL 2.5-0.025 MG TAB 1 tab po four times a day as needed for diarrhea DIPHENOXYLATE-ATROPINE 29486929113 Active Brii Larson APRN Active ZITHROMAX Z-EMIL 250 MG TABS 2 today, then 1 daily for 4 days 201 03/31/18 AZITHROMYCIN 89109751759 No Longer Active Arie Casper MD Active PROTONIX 40 MG ORAL TBEC 1 po q a.m. PANTOPRAZO LE SODIUM 69241003277 Active Carline Ochoa RPT,RMA Active PREDNISONE 20 MG TAB 2 tabs daily for 3 days, 1 t ab daily for 3 days, 1/2 tab daily for 2 days PREDNISONE 21045812882 No Longer Active Brii Larson APRN Active PREDNISONE 20 MG TAB 1 tablet twice daily for 2 d ays, then 1 tablet once daily for 2 days PREDNISONE 74689004918 No Longer Active Brii Larson APRN Active PROMETHAZINE HCL 12.5 MG TABS 1 tablet by mouth every 6 hours as needed for nausea/vomiting PROMETHAZINE HCL 27858369879 No Longe r Active Jono Gagnon DO Active CITRATE OF MAGNESIA ORAL SOLN 1 bottle today for constipation 20 07/10/15 MAGNESIUM CITRATE 83286890567 No Longer Active Jono Gagnon DO Active ZOFRAN 4 MG ORAL TABS 1 TAB PO Q 6 HRS PRN NAUSEA 2014 ONDANSETRON HCL 51571549755 No Longer Active Brii Larson APRN A ctive LOMOTIL 2.5-0.025 MG TAB 1 to 2 four times a day as needed f or diarrhea DIPHENOXYLATE-ATROPINE 94802049441 No Longer Active January Larson APRN Active AMOXICILLIN 500 MG TABS 2 tabs twice a day for 10 days AMOXICILLIN 23866252378 No Longer Active Brii Larson APRN Acti ve CYCLOBENZAPRINE HCL 10 MG TABS 1/2 - 1 tablet by mouth three times daily as needed for muscle spasm/pain CYCLOBENZAPRINE HCL 93285885806 No Longer Active Arie Casper MD Active LOMOTIL 2.5-0.025 MG TABS 1 to 2 four times a day as needed for diarrhea DIPHENOXYLATE-ATROPINE 53091433084 No Longer Active D freddy Casper MD Active MACROBID 100 MG CAP 1 cap by mouth twice daily NITROFURANTOIN MONOHYD MACRO 24868115767 No Longer Active Arie Casper MD Active ZYRTEC ALLERGY 10 MG CAPS 1 po qd CETIRIZINE HCL 18226992670 No Longer Active Arie Casper MD Active AZITHROMYCIN 250 MG TABS 2 po qd x 1 day, then 1 po qd x 4 days AZITHROMYCIN 48727353543 No Longer Active Jillisael Heaton APRN Active PREDNISONE 20 MG TAB 2 tabs daily for 3 days, 1 t ab daily for 3 days, 1/2 tab daily for 2 days PREDNISONE 97161640053 No Longer Active Jillina Frazelanette CABRERA Active PROMETHAZINE HCL 25 MG TABS 1 four times a day as needed for vomiting PROMETHAZINE HCL 18584252373 No Longer Active Myrna Rboerto MD Active BACTRIM DS 800-160 MG TABS 1 twice a day SULFAMETHOXAZOLE-TRIMETHOPRIM 72139791463 No Longer Active Myrna Roberto MD Active VICKS DAYQUIL SEVERE COLD/FLU TABS 1 tab every 6 hours prn 12/10 [id number] TABS 22416305466 No Longer Active Myrna leigh MD Active GUAIFENESIN-CODEINE 100-10 MG/5ML ORAL SYRP 2 tsp every 6 hours prn GUAIFENESIN-CODEINE 44073244418 No Longer Active Myrna Roberto MD Active NAPROXEN 500 MG TAB one tab PO BID NAPROXEN 332 69743746 No Longer Active Myrna Roberto MD Active AUGMENTIN 875-125 MG TAB 1 tab by mouth twice daily with food 20 08/12/16 AMOXICILLIN-POT CLAVULANATE 81236723983 No Longer Active Liliana Estrada MD PhD Active AMOXICILLIN 500 MG CAP 1 tab by mouth 3 times daily 08/12/16 AMOXICILLIN 90734629475 No Longer Active Liliana Estrada MD PhD Acti ve TESSALON PERLES 100 MG CAP 1 tablet by mouth 3 times daily 11/01 BENZONATATE 61396979122 No Longer Active Liliana Estrada MD PhD Active FLAGYL 500 MG TAB 1 tablet by mouth two times daily 07/11/29 METRONIDAZOLE 22750490719 No Longer Active Nilam Weber Active ZITHROMAX 250 MG TAB 2 po today, then 1 po q days 2-5 AZITHROMYCIN 90164862549 No Longer Active Arie Casper MD Acti ve VITAMINS 0.8 MG TABS take 1 tab po qday 08/08 [id number] 49007827353 No Longer Active Arie Casper MD Active IBUPROFEN 800 MG TABS take one po Q 8 hours IBU PROFEN 13948880342 No Longer Active Arie Casper MD Active [facility] TUSSIN COUGH/COLD CF 5-10-100 MG/5ML LIQD 2 teaspoons ev eliud 4 hours [id number] 42737278422 No Longer Active Blaine Casper MD Active COMTREX COLD/COUGH DAY/NITE MS 5-2-10-325 MG MISC 2 caps deja ry 4 hours [id number] 27128071465 No Longer Active Da aleksandra Casper MD Active CHLORASEPTIC MAX SORE THROAT 15-10 MG LOZG 1 every 2 hours prn 2 BENZOCAINE-MENTHOL 34676025111 No Longer Active Arie Marcelo Active PREDNISONE 20 MG TAB 2 tabs daily for 3 days, 1 t ab daily for 3 days, 1/2 tab daily for 2 days PREDNISONE 59661762948 No Longer Active Jose Zhong MD Active AZITHROMYCIN 250 MG TABS 2 po qd x 1 day, then 1 po qd x 4 days AZITHROMYCIN 03692635329 No Longer Active Jose Zhong MD Active ZOFRAN ODT 4 MG TBDP 1 po q6hr PRN Nausea ONDAN SETRON 61561039171 No Longer Active Rich Rosales MD Active ZOFRAN 4 MG TABS 1 tablet every 4 hours ONDANSE JERRELL HCL 00675864975 No Longer Active Rich Rosales MD Active MUCINEX 600 MG [id number] Take 1-2 tablets every 12 hours GUAIFENESIN 67106882115 No Longer Active Rich Rosales MD Activ e BACTRIM 400-80 MG TABS take one po BID SULFAMETHOXAZOLE-TRIMETHOPRIM 91208315905 No Longer Active Abelardo HERNANDEZ Active AZITHROMYCIN 500 MG TABS 1 PO q day x 6 days AZ ITHROMYCIN 56731636413 No Longer Active Tin HERNANDEZ Active ZITHROMAX 250 MG TAB 2 po today, then 1 po q days 2-5 AZITHROMYCIN 62411821207 No Longer Active Arie Casper MD Acti ve ZITHROMAX 250 MG TAB 2 po today, then 1 po q days 2-5 AZITHROMYCIN 76092501156 No Longer Active Arie Casper MD Acti ve AMOXICILLIN 500 MG CAP 1 tab by mouth 3 times daily 20 09/23/20 AMOXICILLIN 42388029394 No Longer Active Arie Casper MD Acti ve BACTRIM DS 800-160 MG TAB 1 tab by mouth twice daily 2 TRIMETHOPRIM-SULFAMETHOXAZOLE 21349111129 No Longer Active Arie Casper MD Active AMOXICILLIN 500 MG TABS take 1 tab po TID AMOXI CILLIN 02405287782 No Longer Active Arie Casper MD Active BACTRIM DS 800-160 MG TAB 1 tab by mouth twice daily 2 BACTRIM DS 800-160 MG TAB 107793 TRIMETHOPRIM-SULFAMETHOXAZOLE Inac tive MUCINEX 600 MG [id number] Take 1-2 tablets every 12 hours MUCINEX 600 MG [id number] GUAIFENESIN Inactive ZOFRAN 4 MG TABS 1 tablet every 4 hours ZOFRAN 4 MG TABS 148931 ONDANSETRON HCL Inactive ZOFRAN ODT 4 MG TBDP 1 po q6hr PRN Nausea ZOFRAN ODT 4 MG TBDP 037230 ONDANSETRON Inactive CHLORASEPTIC MAX SORE THROAT 15-10 MG LOZG 1 every 2 hours prn 2 CHLORASEPTIC MAX SORE THROAT 15-10 MG LOZG BENZO ARINA-MENTHOL Inactive COMTREX COLD/COUGH DAY/NITE MS 5-2-10-325 MG MISC 2 caps deja ry 4 hours COMTREX COLD/COUGH DAY/NITE MS 5-2-10-325 MG MIS C [id number] Inactive [facility] TUSSIN COUGH/COLD CF 5-10-100 MG/5ML LIQD 2 teaspoons ev eliud 4 hours [facility] TUSSIN COUGH/COLD CF 5-10-100 MG/5ML LIQD [id number] Inactive IBUPROFEN 800 MG TABS take one po Q 8 hours IBUPROFEN 800 MG TABS IBUPROFEN Inactive VITAMINS 0.8 MG TABS take 1 tab po qday 08/08 VITAMINS 0.8 MG TABS [id number] Inactive TESSALON PERLES 100 MG CAP 1 tablet by mouth 3 times daily 11/01 TESSALON PERLES 100 MG CAP 779162 BENZONATATE Inact zaid AMOXICILLIN 500 MG CAP 1 tab by mouth 3 times daily 08/12/16 AMOXICILLIN 500 MG CAP 093243 AMOXICILLIN Inactive GUAIFENESIN-CODEINE 100-10 MG/5ML ORAL SYRP 2 tsp every 6 hours prn GUAIFENESIN-CODEINE 100-10 MG/5ML ORAL SYRP 513843 GUAIFENESIN-CODEINE Inactive VICKS DAYQUIL SEVERE COLD/FLU TABS 1 tab every 6 hours prn 12/10 VICKS DAYQUIL SEVERE COLD/FLU TABS PHENYLEPHRINE -DM-GG-APAP TABS Inactive BACTRIM DS 800-160 MG TABS 1 twice a day BACTRIM DS 800- 160 MG TABS 641056 SULFAMETHOXAZOLE-TRIMETHOPRIM Inactive PROMETHAZINE HCL 25 MG TABS 1 four times a day as needed for vomiting PROMETHAZINE HCL 25 MG TABS 857987 PROMETHAZINE HCL Inactive ZYRTEC ALLERGY 10 MG CAPS 1 po qd ZY RTEC ALLERGY 10 MG CAPS CETIRIZINE HCL Inactive MACROBID 100 MG CAP 1 cap by mouth twice daily MACROBID 100 MG CAP 8628996 NITROFURANTOIN MONOHYD MACRO Inactive LOMOTIL 2.5-0.025 MG TABS 1 to 2 four times a day as needed for diarrhea LOMOTIL 2.5-0.025 MG TABS 8879079 DIPHENOXYLATE-A TROPINE Inactive CYCLOBENZAPRINE HCL 10 MG TABS 1/2 - 1 tablet by mouth three times daily as needed for muscle spasm/pain CYCLOBENZAP RINE HCL 10 MG TABS 957387 CYCLOBENZAPRINE HCL Inactive AMOXICILLIN 500 MG TABS 2 tabs twice a day for 10 days AMOXICILLIN 500 MG TABS 156791 AMOXICILLIN Inactive LOMOTIL 2.5-0.025 MG TAB 1 to 2 four times a day as needed f or diarrhea LOMOTIL 2.5-0.025 MG TAB 7967666 DIPHENOXYLATE-AT ROPINE Inactive ZOFRAN 4 MG ORAL TABS 1 TAB PO Q 6 HRS PRN NAUSEA 2014 ZOFRAN 4 MG ORAL TABS 877334 ONDANSETRON HCL Inactive CITRATE OF MAGNESIA ORAL SOLN 1 bottle today for constipation 20 07/10/15 CITRATE OF MAGNESIA ORAL SOLN 7203577 MAGNESIUM CITRATE Inactive PROMETHAZINE HCL 12.5 MG TABS 1 tablet by mouth every 6 hours as needed for nausea/vomiting PROMETHAZINE HCL 12.5 MG TABS 246901 PROMETHAZINE HCL Inactive PREDNISONE 20 MG TAB 1 tablet twice daily for 2 d ays, then 1 tablet once daily for 2 days PREDNISONE 20 MG TAB 205456 PREDNISONE Inac tive ALPRAZOLAM 0.25 MG TAB 1 tablet by mouth every 8 hours as ne eded for stress ALPRAZOLAM 0.25 MG TAB 561196 ALPRAZOLAM Inact zaid FLONASE 50 MCG/ACT SUSP 1 spray each nostril twice d aily for allergies and runny nose until gone FLONASE 50 MCG/ACT SUSP F LUTICASONE PROPIONATE Inactive PREDNISONE 20 MG TAB 1 tablet daily for airway inflammation 2015 PREDNISONE 20 MG TAB 764361 PREDNISONE Inactive AMOXICILLIN 500 MG TABS take 1 tab po TID AMOXICILLIN 500 MG TABS 827766 AMOXICILLIN Inactive AMOXICILLIN 500 MG CAP 1 tab by mouth 3 times daily 09/23/20 AMOXICILLIN 500 MG CAP 806804 AMOXICILLIN Inactive ZITHROMAX 250 MG TAB 2 po today, then 1 po q days 2-5 ZITHROMAX 250 MG TAB 8259850 AZITHROMYCIN Inactive ZITHROMAX 250 MG TAB 2 po today, then 1 po q days 2-5 ZITHROMAX 250 MG TAB 0350126 AZITHROMYCIN Inactive AZITHROMYCIN 500 MG TABS 1 PO q day x 6 days 3 AZITHROMYCIN 500 MG TABS 1119989 AZITHROMYCIN Inactive BACTRIM 400-80 MG TABS take one po BID BA CTRIM 400-80 MG TABS 297247 SULFAMETHOXAZOLE-TRIMETHOPRIM Inactive AZITHROMYCIN 250 MG TABS 2 po qd x 1 day, then 1 po qd x 4 days AZITHROMYCIN 250 MG TABS 0605607 AZITHROMYCIN Inactiv e PREDNISONE 20 MG TAB 2 tabs daily for 3 days, 1 t ab daily for 3 days, 1/2 tab daily for 2 days PREDNISONE 20 MG TAB 720059 PREDNISON E Inactive ZITHROMAX 250 MG TAB 2 po today, then 1 po q days 2-5 ZITHROMAX 250 MG TAB 0573076 AZITHROMYCIN Inactive FLAGYL 500 MG TAB 1 tablet by mouth two times daily 07/11/29 FLAGYL 500 MG TAB 358711 METRONIDAZOLE Inactive AUGMENTIN 875-125 MG TAB 1 tab by mouth twice daily with food 20 08/12/16 AUGMENTIN 875-125 MG TAB 613760 AMOXICILLIN-POT CLAVULA ANGELO Inactive NAPROXEN 500 MG TAB one tab PO BID NAPROXEN 500 MG TAB 640451 NAPROXEN Inactive PREDNISONE 20 MG TAB 2 tabs daily for 3 days, 1 t ab daily for 3 days, 1/2 tab daily for 2 days PREDNISONE 20 MG TAB 582644 PREDNISON E Inactive AZITHROMYCIN 250 MG TABS 2 po qd x 1 day, then 1 po qd x 4 days AZITHROMYCIN 250 MG TABS 8641234 AZITHROMYCIN Inactiv e PREDNISONE 20 MG TAB 2 tabs daily for 3 days, 1 t ab daily for 3 days, 1/2 tab daily for 2 days PREDNISONE 20 MG TAB 012338 PREDNISON E Inactive ZITHROMAX Z-EMIL 250 MG TABS 2 today, then 1 daily for 4 days 201 03/31/18 ZITHROMAX Z-EMIL 250 MG TABS 4057109 AZITHROMYCIN Inac tive CEFDINIR 300 MG CAPS 1 po BID x 10 days C EFDINIR 300 MG CAPS 408832 CEFDINIR Inactive Advance Directives Directive Description Start [...] Panel - Chemistry sodium, serum 136 mmol/L 916-893 1017/04/26 carbon dioxide, venous blood 29.9 mmol/L 21.0-32 [...] pH, urine, semiquantitative 7.0 5.0-8.5 [place] [facility] [place] - Chemistry protein, total [...] Negative Encounters Code Encounter Date Provider Facility CPT-21383 Level 4 Est. Patient 12:08:40 [employer] Steve GREEN MATERIAL VALUE ADDED ASSESSOR [facility] CPT-01041 Level 3 Est. Patient 09:24:42 CDT Steve [facility] CPT-08341 Level 3 Est. Patient 09:12:56 CDT Arie mcqueen MD [facility] CPT-04359 Level 3 Est. Patient 16:40:54 CDT Jose Zhong MD [facility] CPT-49202 Level 2 Est. Patient 13:01:13 CDT Steve [employer] VALUE ADDED ASSESSOR [facility] CPT-20115 Level 3 Est. Patient 11:55:30 [employer] WORK[employer] Jono black DO [facility] CPT-70862 Level 3 Est. Patient 09:52:36 [employer] Steve GRE[employer] MATERIAL VALUE ADDED ASSESSOR [facility] CPT-86998 Level 3 Est. Patient 16:25:33 [employer] Rich Rosales MD [facility] CPT-14734 Level 3 Est. Patient 20:33:55 CDT Arie mcqueen MD [facility] CPT-75726 Level 3 Est. Patient 14:18:20 CDT Rich Rosales MD [facility] CPT-37414 Level 4 Est. Patient 09:34:31 CDT Arie mcqueen MD [facility] CPT-76014 Level 3 Est. Patient 09:08:55 [employer] Liliana vincent MD [facility] CPT-82569 Level 3 Est. Patient 16:44:07 [employer] Arie mcqueen MD [facility] CPT-74917 Level 3 Est. Patient 10:44:27 CDT Arie mcqueen MD [facility] CPT-09157 Level 3 Est. Patient 08:55:41 CDT Jose Zhong MD [facility] CPT-55475 Level 3 Est. Patient 18:37:31 CDT Liliana vincent MD [facility] CPT-85444 Level 3 Est. Patient 14:28:23 CDT Abelardo marroquin [facility] CPT-24747 Level 3 Est. Patient 15:18:13 [employer] Arie mcqueen MD [facility] CPT-22523 Level 3 Est. Patient 10:11:29 [employer] WORK[employer] Arie mcqueen MD [facility] CPT-80953 Level 3 Est. Patient 10:55:57 [employer] Jono black DO [facility] CPT-61368 Level 3 Est. Patient 17:29:05 CDT Arie mcqueen MD [facility] Procedures Code Procedure Name Date Entry Date Standard Desc ription CPT-06542 UA w micro - LAB USE ONLY 16:04:56 [employer] 2015 CPT-36474 Wet Prep/GEN - LAB USE ONLY 16:04:56 [employer] 20 08/10/29 CPT-03146 First Vx - Ix admin via ID I M or jet injects without counseling by physician 16:57:10 CDT CPT-23164 Fluzone Preservative Free Intramuscular Suspension 16:57:10 CDT CPT-J0696 Rocephin 1000 mg (Ceftriaxone) 11:49:23 CDT CPT-J1040 Depo Medrol 80 mg (Methyl Prednisolone A cetate) 11:49:23 CDT CPT-J1100 Decadron 8mg (Dexamethasone) 11:49:23 CDT 2 CPT-13360 Abx/Therapy Injection 11:49:23 CDT CPT-06792 Abx/Therapy Injection 11:49:23 CDT CPT-45580 Abd compl w upright 09:07:26 [employer] CPT-58269 Ear Wash 16:12:47 [employer] CPT-OV Office Visit 11:12:01 CDT CPT-OV Office Visit 15:30:23 CDT CPT-71152 Sono pelvis non OB uterus ovaries cervix 15:50:44 CDT CPT-30056 Hand comp min 3V 16:42:32 CDT CPT-78454 Abd compl w upright 12:17:01 CDT CPT-46463 Nexplanon Placement 15:07:39 [employer] CPT-09635 Removal of IUD 15:07:39 [employer] CPT-97528 TB Tubersol 12:09:32 CDT CPT-17501 TB Tubersol 13:55:43 CDT
--- OUTSIDE RECORDS SUMMARY | 2020-03-03 08:18 | XMS REPORT | Clinical Summary ---
Author Author Admin, Diamante Marcelo Organization [employer] Address Unknown Phone Unavailable Allergies, Adverse [...] site Abdominal pain 789.00 Active Brii Larson SHIPPING TECHNICIAN Abdominal pain, unspecified site Diarrhea 787.91 Resolved [...] cute pharyngitis Nausea 787.02 Active Brii Larson SHIPPING TECHNICIAN Nausea alone URI 465.9 Active Jono [...] Anxiety with depression 300.4 Active Glenn Larson SHIPPING TECHNICIAN Dysthymic disorder URI 465.9 Active Jono [...] MG TAB Take 1 tab BID NAPROXEN 929645066 15 Active Brii Larson APRN Active NEXPLANON IMPL Left arm subcutaneously ETONOGES TREL IMPL 09648627602 Active Brii Larson APRN Active CEFDINIR 300 MG CAPS 1 po BID x 10 days CEFDINI R 39197463181 No Longer Active Brii Larson APRN Active PREDNISONE 20 MG TAB 1 tablet daily for airway inflammation 2015 PREDNISONE 46464388153 No Longer Active Brii Larson APRN Active CEFDINIR 300 MG CAPS 1 po BID x 10 days CEFDINI R 77708040358 No Longer Active Jono W Kalin DO Active FLONASE 50 MCG/ACT SUSP 1 spray each nostril twice d aily for allergies and runny nose until gone FLUTICASONE PROPIONATE No Longe r Active Jono Gagnon DO Active ALPRAZOLAM 0.25 MG TAB 1 tablet by mouth every 8 hours as ne eded for stress ALPRAZOLAM 56611862932 No Longer Active Jono Gagnon DO Active ZOLOFT 50 MG TAB 1 tablet by mouth daily SERTRA LINE HCL 83897642950 Active Arie Casper MD Active LOMOTIL 2.5-0.025 MG TAB 1 tab po four times a day as needed for diarrhea DIPHENOXYLATE-ATROPINE 20697869177 Active Brii Larson APRN Active ZITHROMAX Z-EMIL 250 MG TABS 2 today, then 1 daily for 4 days 201 03/31/18 AZITHROMYCIN 99723750971 No Longer Active Arie Casper MD Active PROTONIX 40 MG ORAL TBEC 1 po q a.m. PANTOPRAZO LE SODIUM 46827525776 Active Arie Casper MD Active PREDNISONE 20 MG TAB 2 tabs daily for 3 days, 1 t ab daily for 3 days, 1/2 tab daily for 2 days PREDNISONE 32017434449 No Longer Active Brii Larson APRN Active PREDNISONE 20 MG TAB 1 tablet twice daily for 2 d ays, then 1 tablet once daily for 2 days PREDNISONE 25975762656 No Longer Active Brii Larson APRN Active PROMETHAZINE HCL 12.5 MG TABS 1 tablet by mouth every 6 hours as needed for nausea/vomiting PROMETHAZINE HCL 70405000717 No Longe r Active Jono Gagnon DO Active CITRATE OF MAGNESIA ORAL SOLN 1 bottle today for constipation 20 07/10/15 MAGNESIUM CITRATE 19397054498 No Longer Active Jono Gagnon DO Active ZOFRAN 4 MG ORAL TABS 1 TAB PO Q 6 HRS PRN NAUSEA 2014 ONDANSETRON HCL 16434518092 No Longer Active Brii Larson APRN A ctive LOMOTIL 2.5-0.025 MG TAB 1 to 2 four times a day as needed f or diarrhea DIPHENOXYLATE-ATROPINE 99131837672 No Longer Active January Larson APRN Active AMOXICILLIN 500 MG TABS 2 tabs twice a day for 10 days AMOXICILLIN 09650182276 No Longer Active Brii Larson APRN Acti ve CYCLOBENZAPRINE HCL 10 MG TABS 1/2 - 1 tablet by mouth three times daily as needed for muscle spasm/pain CYCLOBENZAPRINE HCL 72779200386 No Longer Active Arie Casper MD Active LOMOTIL 2.5-0.025 MG TABS 1 to 2 four times a day as needed for diarrhea DIPHENOXYLATE-ATROPINE 83121402474 No Longer Active D freddy Casper MD Active MACROBID 100 MG CAP 1 cap by mouth twice daily NITROFURANTOIN MONOHYD MACRO 21133432488 No Longer Active Arie Casper MD Active ZYRTEC ALLERGY 10 MG CAPS 1 po qd CETIRIZINE HCL 15329898966 No Longer Active Arie Casper MD Active AZITHROMYCIN 250 MG TABS 2 po qd x 1 day, then 1 po qd x 4 days AZITHROMYCIN 15611010318 No Longer Active Jillina Frazelanette CABRERA Active PREDNISONE 20 MG TAB 2 tabs daily for 3 days, 1 t ab daily for 3 days, 1/2 tab daily for 2 days PREDNISONE 50855823315 No Longer Active Jillina Frazell RICK Active PROMETHAZINE HCL 25 MG TABS 1 four times a day as needed for vomiting PROMETHAZINE HCL 03456839483 No Longer Active Myrna Roberto MD Active BACTRIM DS 800-160 MG TABS 1 twice a day SULFAMETHOXAZOLE-TRIMETHOPRIM 49351012679 No Longer Active Myrna Roberto MD Active VICKS DAYQUIL SEVERE COLD/FLU TABS 1 tab every 6 hours prn 12/10 [id number] TABS 80346524366 No Longer Active Myrna leigh MD Active GUAIFENESIN-CODEINE 100-10 MG/5ML ORAL SYRP 2 tsp every 6 hours prn GUAIFENESIN-CODEINE 35101529954 No Longer Active Myrna Roberto MD Active NAPROXEN 500 MG TAB one tab PO BID NAPROXEN 332 63490649 No Longer Active Myrna Roberto MD Active AUGMENTIN 875-125 MG TAB 1 tab by mouth twice daily with food 20 08/12/16 AMOXICILLIN-POT CLAVULANATE 94750517276 No Longer Active Liliana Estrada MD PhD Active AMOXICILLIN 500 MG CAP 1 tab by mouth 3 times daily 08/12/16 AMOXICILLIN 28831927122 No Longer Active Liliana Estrada MD PhD Acti ve TESSALON PERLES 100 MG CAP 1 tablet by mouth 3 times daily 11/01 BENZONATATE 99105811310 No Longer Active Liliana Estrada MD PhD Active FLAGYL 500 MG TAB 1 tablet by mouth two times daily 07/11/29 METRONIDAZOLE 68394130167 No Longer Active Nilam Weber Active ZITHROMAX 250 MG TAB 2 po today, then 1 po q days 2-5 AZITHROMYCIN 87405656929 No Longer Active Arie Casper MD Acti ve VITAMINS 0.8 MG TABS take 1 tab po qday 08/08 [id number] 38598649163 No Longer Active Arie Casper MD Active IBUPROFEN 800 MG TABS take one po Q 8 hours IBU PROFEN 15182664613 No Longer Active Arie Casper MD Active [facility] TUSSIN COUGH/COLD CF 5-10-100 MG/5ML LIQD 2 teaspoons ev eliud 4 hours [id number] 59051091551 No Longer Active Blaine Casper MD Active COMTREX COLD/COUGH DAY/NITE MS 5-2-10-325 MG MISC 2 caps deja ry 4 hours [id number] 29987483086 No Longer Active Da aleksandra Casper MD Active CHLORASEPTIC MAX SORE THROAT 15-10 MG LOZG 1 every 2 hours prn 2 BENZOCAINE-MENTHOL 21583115772 No Longer Active Arie Marcelo Active PREDNISONE 20 MG TAB 2 tabs daily for 3 days, 1 t ab daily for 3 days, 1/2 tab daily for 2 days PREDNISONE 21719086420 No Longer Active Jose Zhong MD Active AZITHROMYCIN 250 MG TABS 2 po qd x 1 day, then 1 po qd x 4 days AZITHROMYCIN 88891348224 No Longer Active Jose Zhong MD Active ZOFRAN ODT 4 MG TBDP 1 po q6hr PRN Nausea ONDAN SETRON 17189715898 No Longer Active Rich Rosales MD Active ZOFRAN 4 MG TABS 1 tablet every 4 hours ONDANSE JERRELL HCL 69018812648 No Longer Active Rich Rosales MD Active MUCINEX 600 MG [id number] Take 1-2 tablets every 12 hours GUAIFENESIN 92992409618 No Longer Active Rich Rosales MD Activ e BACTRIM 400-80 MG TABS take one po BID SULFAMETHOXAZOLE-TRIMETHOPRIM 21989324057 No Longer Active Abelardo HERNANDEZ Active AZITHROMYCIN 500 MG TABS 1 PO q day x 6 days AZ ITHROMYCIN 33198959256 No Longer Active Tin HERNANDEZ Active ZITHROMAX 250 MG TAB 2 po today, then 1 po q days 2-5 AZITHROMYCIN 52428154102 No Longer Active Arie Casper MD Acti ve ZITHROMAX 250 MG TAB 2 po today, then 1 po q days 2-5 AZITHROMYCIN 73414500025 No Longer Active Arie Casper MD Acti ve AMOXICILLIN 500 MG CAP 1 tab by mouth 3 times daily 20 09/23/20 AMOXICILLIN 03987994503 No Longer Active Arie Casper MD Acti ve BACTRIM DS 800-160 MG TAB 1 tab by mouth twice daily 2 TRIMETHOPRIM-SULFAMETHOXAZOLE 03746491030 No Longer Active Arie Casper MD Active AMOXICILLIN 500 MG TABS take 1 tab po TID AMOXI CILLIN 55340378337 No Longer Active Arie Casper MD Active BACTRIM DS 800-160 MG TAB 1 tab by mouth twice daily 2 BACTRIM DS 800-160 MG TAB 791819 TRIMETHOPRIM-SULFAMETHOXAZOLE Inac tive MUCINEX 600 MG [id number] Take 1-2 tablets every 12 hours MUCINEX 600 MG [id number] GUAIFENESIN Inactive ZOFRAN 4 MG TABS 1 tablet every 4 hours ZOFRAN 4 MG TABS 392230 ONDANSETRON HCL Inactive ZOFRAN ODT 4 MG TBDP 1 po q6hr PRN Nausea ZOFRAN ODT 4 MG TBDP 342718 ONDANSETRON Inactive CHLORASEPTIC MAX SORE THROAT 15-10 MG LOZG 1 every 2 hours prn 2 CHLORASEPTIC MAX SORE THROAT 15-10 MG LOZG BENZO ARINA-MENTHOL Inactive COMTREX COLD/COUGH DAY/NITE MS 5-2-10-325 MG MISC 2 caps deja ry 4 hours COMTREX COLD/COUGH DAY/NITE MS 5-2-10-325 MG MIS C [id number] Inactive [facility] TUSSIN COUGH/COLD CF 5-10-100 MG/5ML LIQD 2 teaspoons ev eliud 4 hours [facility] TUSSIN COUGH/COLD CF 5-10-100 MG/5ML LIQD [id number] Inactive IBUPROFEN 800 MG TABS take one po Q 8 hours IBUPROFEN 800 MG TABS IBUPROFEN Inactive VITAMINS 0.8 MG TABS take 1 tab po qday 08/08 VITAMINS 0.8 MG TABS [id number] Inactive TESSALON PERLES 100 MG CAP 1 tablet by mouth 3 times daily 11/01 TESSALON PERLES 100 MG CAP 712897 BENZONATATE Inact zaid AMOXICILLIN 500 MG CAP 1 tab by mouth 3 times daily 08/12/16 AMOXICILLIN 500 MG CAP 438140 AMOXICILLIN Inactive GUAIFENESIN-CODEINE 100-10 MG/5ML ORAL SYRP 2 tsp every 6 hours prn GUAIFENESIN-CODEINE 100-10 MG/5ML ORAL SYRP 502676 GUAIFENESIN-CODEINE Inactive VICKS DAYQUIL SEVERE COLD/FLU TABS 1 tab every 6 hours prn 12/10 VICKS DAYQUIL SEVERE COLD/FLU TABS PHENYLEPHRINE -DM-GG-APAP TABS Inactive BACTRIM DS 800-160 MG TABS 1 twice a day BACTRIM DS 800- 160 MG TABS 033827 SULFAMETHOXAZOLE-TRIMETHOPRIM Inactive PROMETHAZINE HCL 25 MG TABS 1 four times a day as needed for vomiting PROMETHAZINE HCL 25 MG TABS 244763 PROMETHAZINE HCL Inactive ZYRTEC ALLERGY 10 MG CAPS 1 po qd ZY RTEC ALLERGY 10 MG CAPS CETIRIZINE HCL Inactive MACROBID 100 MG CAP 1 cap by mouth twice daily MACROBID 100 MG CAP 1572140 NITROFURANTOIN MONOHYD MACRO Inactive LOMOTIL 2.5-0.025 MG TABS 1 to 2 four times a day as needed for diarrhea LOMOTIL 2.5-0.025 MG TABS 1626580 DIPHENOXYLATE-A TROPINE Inactive CYCLOBENZAPRINE HCL 10 MG TABS 1/2 - 1 tablet by mouth three times daily as needed for muscle spasm/pain CYCLOBENZAP RINE HCL 10 MG TABS 076970 CYCLOBENZAPRINE HCL Inactive AMOXICILLIN 500 MG TABS 2 tabs twice a day for 10 days AMOXICILLIN 500 MG TABS 400789 AMOXICILLIN Inactive LOMOTIL 2.5-0.025 MG TAB 1 to 2 four times a day as needed f or diarrhea LOMOTIL 2.5-0.025 MG TAB 9565741 DIPHENOXYLATE-AT ROPINE Inactive ZOFRAN 4 MG ORAL TABS 1 TAB PO Q 6 HRS PRN NAUSEA 2014 ZOFRAN 4 MG ORAL TABS 419559 ONDANSETRON HCL Inactive CITRATE OF MAGNESIA ORAL SOLN 1 bottle today for constipation 20 07/10/15 CITRATE OF MAGNESIA ORAL SOLN 0147633 MAGNESIUM CITRATE Inactive PROMETHAZINE HCL 12.5 MG TABS 1 tablet by mouth every 6 hours as needed for nausea/vomiting PROMETHAZINE HCL 12.5 MG TABS 762482 PROMETHAZINE HCL Inactive PREDNISONE 20 MG TAB 1 tablet twice daily for 2 d ays, then 1 tablet once daily for 2 days PREDNISONE 20 MG TAB 086831 PREDNISONE Inac tive ALPRAZOLAM 0.25 MG TAB 1 tablet by mouth every 8 hours as ne eded for stress ALPRAZOLAM 0.25 MG TAB 078234 ALPRAZOLAM Inact zaid FLONASE 50 MCG/ACT SUSP 1 spray each nostril twice d aily for allergies and runny nose until gone FLONASE 50 MCG/ACT SUSP F LUTICASONE PROPIONATE Inactive PREDNISONE 20 MG TAB 1 tablet daily for airway inflammation 2015 PREDNISONE 20 MG TAB 622885 PREDNISONE Inactive AMOXICILLIN 500 MG TABS take 1 tab po TID AMOXICILLIN 500 MG TABS 859242 AMOXICILLIN Inactive AMOXICILLIN 500 MG CAP 1 tab by mouth 3 times daily 09/23/20 AMOXICILLIN 500 MG CAP 290255 AMOXICILLIN Inactive ZITHROMAX 250 MG TAB 2 po today, then 1 po q days 2-5 ZITHROMAX 250 MG TAB 3598542 AZITHROMYCIN Inactive ZITHROMAX 250 MG TAB 2 po today, then 1 po q days 2-5 ZITHROMAX 250 MG TAB 8724102 AZITHROMYCIN Inactive AZITHROMYCIN 500 MG TABS 1 PO q day x 6 days 3 AZITHROMYCIN 500 MG TABS 9311219 AZITHROMYCIN Inactive BACTRIM 400-80 MG TABS take one po BID BA CTRIM 400-80 MG TABS 409783 SULFAMETHOXAZOLE-TRIMETHOPRIM Inactive AZITHROMYCIN 250 MG TABS 2 po qd x 1 day, then 1 po qd x 4 days AZITHROMYCIN 250 MG TABS 9712442 AZITHROMYCIN Inactiv e PREDNISONE 20 MG TAB 2 tabs daily for 3 days, 1 t ab daily for 3 days, 1/2 tab daily for 2 days PREDNISONE 20 MG TAB 225048 PREDNISON E Inactive ZITHROMAX 250 MG TAB 2 po today, then 1 po q days 2-5 ZITHROMAX 250 MG TAB 7072777 AZITHROMYCIN Inactive FLAGYL 500 MG TAB 1 tablet by mouth two times daily 07/11/29 FLAGYL 500 MG TAB 552803 METRONIDAZOLE Inactive AUGMENTIN 875-125 MG TAB 1 tab by mouth twice daily with food 20 08/12/16 AUGMENTIN 875-125 MG TAB 245383 AMOXICILLIN-POT CLAVULA ANGELO Inactive NAPROXEN 500 MG TAB one tab PO BID NAPROXEN 500 MG TAB 916153 NAPROXEN Inactive PREDNISONE 20 MG TAB 2 tabs daily for 3 days, 1 t ab daily for 3 days, 1/2 tab daily for 2 days PREDNISONE 20 MG TAB 448427 PREDNISON E Inactive AZITHROMYCIN 250 MG TABS 2 po qd x 1 day, then 1 po qd x 4 days AZITHROMYCIN 250 MG TABS 9224108 AZITHROMYCIN Inactiv e PREDNISONE 20 MG TAB 2 tabs daily for 3 days, 1 t ab daily for 3 days, 1/2 tab daily for 2 days PREDNISONE 20 MG TAB 689977 PREDNISON E Inactive ZITHROMAX Z-EMIL 250 MG TABS 2 today, then 1 daily for 4 days 201 03/31/18 ZITHROMAX Z-EMIL 250 MG TABS 5075778 AZITHROMYCIN Inac tive CEFDINIR 300 MG CAPS [...] Panel - Chemistry sodium, serum 136 mmol/L 421-985 8388/04/26 carbon dioxide, venous blood 29.9 mmol/L 21.0-32 [...] Negative Encounters Code Encounter Date Provider Facility CPT-95875 Level 3 Est. Patient 15:18:16 SUPERVISOR FILTER ASSEMBLY Jono black [facility] CPT-91622 Level 4 Est. Patient 12:08:40 SUPERVISOR FILTER ASSEMBLY Steve [facility] [place][note 2] CPT-27627 Level 3 Est. Patient 09:24:42 CDT Steve [facility] [place][note 2] CPT-43861 Level 3 Est. Patient 09:12:56 CDT Arie mcqueen MD [facility] CPT-03720 Level 3 Est. Patient 16:40:54 CDT Jose Zhong MD [facility] CPT-59866 Level 2 Est. Patient 13:01:13 CDT Steve [facility] [place][note 2] CPT-01751 Level 3 Est. Patient 11:55:30 SUPERVISOR FILTER ASSEMBLY Jono black [facility] CPT-77818 Level 3 Est. Patient 09:52:36 SUPERVISOR FILTER ASSEMBLY Steve PAREKHN [facility] CPT-02142 Level 3 Est. Patient 16:25:33 SUPERVISOR FILTER ASSEMBLY Rich Rosales MD [facility]-74536 Level 3 Est. Patient 20:33:55 CDT Arie mcqueen MD [facility]-85802 Level 3 Est. Patient 14:18:20 CDT Rich Rosales MD [facility]-32526 Level 4 Est. Patient 09:34:31 CDT Arie mcqueen MD [facility]-28439 Level 3 Est. Patient 09:08:55 SUPERVISOR FILTER ASSEMBLY Liliana vincent MD [facility]-30874 Level 3 Est. Patient 16:44:07 SUPERVISOR FILTER ASSEMBLY Arie mcqueen MD [facility]-29566 Level 3 Est. Patient 10:44:27 CDT Arie mcqueen MD [facility]-34112 Level 3 Est. Patient 08:55:41 CDT Jose Zhong MD [facility]-33750 Level 3 Est. Patient 18:37:31 CDT Liliana vincent MD [facility] [place]-80283 Level 3 Est. Patient 14:28:23 CDT Abelardo HERNANDEZ [facility]-62278 Level 3 Est. Patient 15:18:13 SUPERVISOR FILTER ASSEMBLY Arie mcqueen MD [facility]-84203 Level 3 Est. Patient 10:11:29 SUPERVISOR FILTER ASSEMBLY Arie mcqueen MD [facility]-66207 Level 3 Est. Patient 10:55:57 SUPERVISOR FILTER ASSEMBLY Jono black DO [facility]-52102 Level 3 Est. Patient 17:29:05 CDT Arie mcqueen MD [facility] Procedures Code Procedure Name Date Entry Date Standard Desc ription CPT-40726 Sono transvag pelvis non OB uterus ovari es cervix - XRAY USE ONLY 08:58:14 SUPERVISOR FILTER ASSEMBLY CPT-30892 UA w micro - LAB USE ONLY 16:04:56 SUPERVISOR FILTER ASSEMBLY 2015 CPT-48285 Wet Prep/GEN - LAB USE ONLY 16:04:56 SUPERVISOR FILTER ASSEMBLY 20 08/10/29 CPT-62680 First Vx - Ix admin via ID I M or jet injects without counseling by physician 16:57:10 CDT CPT-18301 Fluzone Preservative Free Intramuscular Suspension 16:57:10 CDT CPT-J0696 Rocephin 1000 mg (Ceftriaxone) 11:49:23 CDT CPT-J1040 Depo Medrol 80 mg (Methyl Prednisolone A cetate) 11:49:23 CDT CPT-J1100 Decadron 8mg (Dexamethasone) 11:49:23 CDT 2 CPT-55512 Abx/Therapy Injection 11:49:23 CDT CPT-84642 Abx/Therapy Injection 11:49:23 CDT CPT-59406 Abd compl w upright 09:07:26 SUPERVISOR FILTER ASSEMBLY CPT-83698 Ear Wash 16:12:47 SUPERVISOR FILTER ASSEMBLY CPT-OV Office Visit 11:12:01 CDT CPT-OV Office Visit 15:30:23 CDT CPT-76039 Sono pelvis non OB uterus ovaries cervix 15:50:44 CDT CPT-95398 Hand comp min 3V 16:42:32 CDT CPT-01739 Abd compl w upright 12:17:01 CDT CPT-64763 Nexplanon Placement 15:07:39 SUPERVISOR FILTER ASSEMBLY CPT-69501 Removal of IUD 15:07:39 SUPERVISOR FILTER ASSEMBLY CPT-79467 TB Tubersol 12:09:32 CDT CPT-24983 TB Tubersol 13:55:43 CDT
--- OUTSIDE RECORDS SUMMARY | 2020-03-03 08:18 | XMS REPORT | Clinical Summary ---
Author Author Admin, Diamante Marcelo Organization [facility] Address Unknown Phone Unavailable [...] cute pharyngitis Nausea 787.02 Active Brii Larson [employer] Nausea alone URI 465.9 Active Jono Gagnon DO Acu te upper respiratory infections of unspecified site Allergic rhinitis 477.9 Active Brii Christianson PRN Allergic rhinitis, cause unspecified Abdominal pain, right lower quadrant 789.03 Active Jose Zhong MD Abdominal pain, right lower quadrant Urinary frequency 788.41 Inactive Roseann Crawford Urinary frequency Urinary frequency 788.41 Active 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, [employer] Urinary frequency Sinusitis - acute 461.9 Active Brii Christianson PRN Acute sinusitis, unspecified Anxiety with depression 300.4 Active 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 [employer] [facility] Dysthymic disorder URI 465.9 Active Jono Gagnon DO Acu te upper respiratory infections of unspecified site Vaginal bleeding 623.8 Active Brii MARROQUIN RN Other specified noninflammatory disorders of vagina High risk sexual behavior V69.2 Active Arie Casper MD High-risk sexual behavior GERD 530.81 Active Arie Casper MD Esophageal reflux Encounter for surveillance of implantable subdermal contraceptiv e Active Brii Neo [employer] [employer] [facility] Vaginal bleeding 623.8 Active Arie Casper MD [...] 1 po q a.m. PANTOPRAZO LE SODIUM 99105335822 No Longer Active Arie Casper MD Active BACTRIM DS 800-160 MG TAB 1 tab by mouth twice daily 2 TRIMETHOPRIM-SULFAMETHOXAZOLE 84260068136 No Longer Active Roseann Crawford Active NEXPLANON IMPL right arm subcutaneously ETONOGE STREL IMPL 37514799373 No Longer Active Brii Larson APRN Active TUSSIONEX PENNKINETIC ER 10-8 MG/5ML LQCR 5ml po q12hr PRN Cough HYDROCOD POLST-CHLORPHEN POLST 05018362821 No Longer Active Brii Larson APRN Active CETIRIZINE HCL 10 MG ORAL TABS 1 po qd PRN Allergies 2 CETIRIZINE HCL 20015074673 No Longer Active Brii Larson APRN Ac tive PREDNISONE 20 MG TAB 2 tabs daily for 3 days, 1 t ab daily for 3 days, 1/2 tab daily for 2 days PREDNISONE 17488609799 No Longer Active Arie Casper MD Active LOMOTIL 2.5-0.025 MG TAB 1 tab po four times a day as needed for diarrhea DIPHENOXYLATE-ATROPINE 88502616146 No Longer Active Fozia Casper MD Active ZOLOFT 50 MG TAB 1 tablet by mouth daily SERTRA LINE HCL 55995526039 No Longer Active Arie Casper MD Active NAPROXEN 500 MG TAB Take 1 tab BID NAPROXEN 332 39350289 No Longer Active Arie Casper MD Active CEFDINIR 300 MG CAPS 1 po BID x 10 days CEFDINI R 48164184925 No Longer Active Brii Larson APRN Active PREDNISONE 20 MG TAB 1 tablet daily for airway inflammation 2015 PREDNISONE 10197512931 No Longer Active Brii Larson APRN Active CEFDINIR 300 MG CAPS 1 po BID x 10 days CEFDINI R 05357237956 No Longer Active Jono Gagnon DO Active FLONASE 50 MCG/ACT SUSP 1 spray each nostril twice d aily for allergies and runny nose until gone FLUTICASONE PROPIONATE No Longe r Active Jono Gagnon DO Active ALPRAZOLAM 0.25 MG TAB 1 tablet by mouth every 8 hours as ne eded for stress ALPRAZOLAM 26748125088 No Longer Active Jono Gagnon DO Active ZITHROMAX Z-EMIL 250 MG TABS 2 today, then 1 daily for 4 days 201 03/31/18 AZITHROMYCIN 33776893985 No Longer Active Arie Casper MD Active PREDNISONE 20 MG TAB 2 tabs daily for 3 days, 1 t ab daily for 3 days, 1/2 tab daily for 2 days PREDNISONE 69746141082 No Longer Active Brii Larson APRN Active PREDNISONE 20 MG TAB 1 tablet twice daily for 2 d ays, then 1 tablet once daily for 2 days PREDNISONE 70340150802 No Longer Active Brii Larson APRN Active PROMETHAZINE HCL 12.5 MG TABS 1 tablet by mouth every 6 hours as needed for nausea/vomiting PROMETHAZINE HCL 73104791904 No Longe r Active Jono Gagnon DO Active CITRATE OF MAGNESIA ORAL SOLN 1 bottle today for constipation 20 07/10/15 MAGNESIUM CITRATE 17872404795 No Longer Active Jono Gagnon DO Active ZOFRAN 4 MG ORAL TABS 1 TAB PO Q 6 HRS PRN NAUSEA 2014 ONDANSETRON HCL 75708901962 No Longer Active Brii Larson APRN A ctive LOMOTIL 2.5-0.025 MG TAB 1 to 2 four times a day as needed f or diarrhea DIPHENOXYLATE-ATROPINE 05358610996 No Longer Active January Larson APRN Active AMOXICILLIN 500 MG TABS 2 tabs twice a day for 10 days AMOXICILLIN 14739277924 No Longer Active Brii Larson APRN Acti ve CYCLOBENZAPRINE HCL 10 MG TABS 1/2 - 1 tablet by mouth three times daily as needed for muscle spasm/pain CYCLOBENZAPRINE HCL 25628176615 No Longer Active Arie Casper MD Active LOMOTIL 2.5-0.025 MG TABS 1 to 2 four times a day as needed for diarrhea DIPHENOXYLATE-ATROPINE 36293102355 No Longer Active Fozia Casper MD Active MACROBID 100 MG CAP 1 cap by mouth twice daily NITROFURANTOIN MONOHYD MACRO 39788033444 No Longer Active Arie Casper MD Active ZYRTEC ALLERGY 10 MG CAPS 1 po qd CETIRIZINE HCL 62556128980 No Longer Active Arie Casper MD Active AZITHROMYCIN 250 MG TABS 2 po qd x 1 day, then 1 po qd x 4 days AZITHROMYCIN 52702152613 No Longer Active Jillina Frazell [employer] [employer] Active PREDNISONE 20 MG TAB 2 tabs daily for 3 days, 1 t ab daily for 3 days, 1/2 tab daily for 2 days PREDNISONE 74566126600 No Longer Active Jillina Frazell [employer] [employer] [facility] Active PROMETHAZINE HCL 25 MG TABS 1 four times a day as needed for vomiting PROMETHAZINE HCL 97401154194 No Longer Active Myrna Roberto MD Active BACTRIM DS 800-160 MG TABS 1 twice a day SULFAMETHOXAZOLE-TRIMETHOPRIM 60349221827 No Longer Active Myrna Roberto MD Active VICKS DAYQUIL SEVERE COLD/FLU TABS 1 tab every 6 hours prn 12/10 [id number] TABS 72623582573 No Longer Active Myrna leigh MD Active GUAIFENESIN-CODEINE 100-10 MG/5ML ORAL SYRP 2 tsp every 6 hours prn GUAIFENESIN-CODEINE 34378142067 No Longer Active Myrna Roberto MD Active NAPROXEN 500 MG TAB one tab PO BID NAPROXEN 332 40072231 No Longer Active Myrna Roberto MD Active AUGMENTIN 875-125 MG TAB 1 tab by mouth twice daily with food 08/12/16 AMOXICILLIN-POT CLAVULANATE 24936809484 No Longer Active Liliana Estrada MD PhD Active AMOXICILLIN 500 MG CAP 1 tab by mouth 3 times daily 08/12/16 AMOXICILLIN 76642719157 No Longer Active Liliana Estrada MD PhD Acti ve TESSALON PERLES 100 MG CAP 1 tablet by mouth 3 times daily 11/01 BENZONATATE 99820875316 No Longer Active Liliana Estrada MD PhD Active FLAGYL 500 MG TAB 1 tablet by mouth two times daily 07/11/29 METRONIDAZOLE 00862475785 No Longer Active Nilamnory Weber Active ZITHROMAX 250 MG TAB 2 po today, then 1 po q days 2-5 AZITHROMYCIN 75792438396 No Longer Active Arie Casper MD Acti ve VITAMINS 0.8 MG TABS take 1 tab po qday 08/08 [id number] 81988708487 No Longer Active Arie Casper MD Active IBUPROFEN 800 MG TABS take one po Q 8 hours IBU PROFEN 52921961659 No Longer Active Arie Casper MD Active [facility] TUSSIN COUGH/COLD CF 5-10-100 MG/5ML LIQD 2 teaspoons ev eliud 4 hours [id number] 63630124042 No Longer Active Blaine Casper MD Active COMTREX COLD/COUGH DAY/NITE MS 5-2-10-325 MG MISC 2 caps deja ry 4 hours [id number] 83150897431 No Longer Active Da aleksandra Casper MD Active CHLORASEPTIC MAX SORE THROAT 15-10 MG LOZG 1 every 2 hours prn 2 BENZOCAINE-MENTHOL 58450664222 No Longer Active Arie M Sioux M D Active PREDNISONE 20 MG TAB 2 tabs daily for 3 days, 1 t ab daily for 3 days, 1/2 tab daily for 2 days PREDNISONE 15478669950 No Longer Active Jose Zhong MD Active AZITHROMYCIN 250 MG TABS 2 po qd x 1 day, then 1 po qd x 4 days AZITHROMYCIN 39269584668 No Longer Active Jose Zhong MD Active ZOFRAN ODT 4 MG TBDP 1 po q6hr PRN Nausea ONDAN SETRON 86370549649 No Longer Active Rich Rosales MD Active ZOFRAN 4 MG TABS 1 tablet every 4 hours ONDANSE JERRELL HCL 65088276017 No Longer Active Rich Rosales MD Active MUCINEX 600 MG [id number] Take 1-2 tablets every 12 hours GUAIFENESIN 01054427573 No Longer Active Rich Rosales MD Activ e BACTRIM 400-80 MG TABS take one po BID SULFAMETHOXAZOLE-TRIMETHOPRIM 22860000177 No Longer Active Abelardo HERNANDEZ Active AZITHROMYCIN 500 MG TABS 1 PO q day x 6 days AZ ITHROMYCIN 92382436750 No Longer Active Tin HERNANDEZ Active ZITHROMAX 250 MG TAB 2 po today, then 1 po q days 2-5 AZITHROMYCIN 78873562901 No Longer Active Arie Casper MD Acti ve ZITHROMAX 250 MG TAB 2 po today, then 1 po q days 2-5 AZITHROMYCIN 17705315845 No Longer Active Arie Casper MD Acti ve AMOXICILLIN 500 MG CAP 1 tab by mouth 3 times daily 09/23/20 AMOXICILLIN 51229516483 No Longer Active Arie Casper MD Acti ve BACTRIM DS 800-160 MG TAB 1 tab by mouth twice daily 2 TRIMETHOPRIM-SULFAMETHOXAZOLE 36156476431 No Longer Active Arie Casper MD Active AMOXICILLIN 500 MG TABS take 1 tab po TID AMOXI CILLIN 68725100654 No Longer Active Arie Casper MD Active BACTRIM DS 800-160 MG TAB 1 tab by mouth twice daily 2 BACTRIM DS 800-160 MG TAB 19821226 TRIMETHOPRIM-SULFAMETHOXAZOLE Inac tive MUCINEX 600 MG [id number] Take 1-2 tablets every 12 hours MUCINEX 600 MG [id number] GUAIFENESIN Inactive ZOFRAN 4 MG TABS 1 tablet every 4 hours ZOFRAN 4 MG TABS 832749 ONDANSETRON HCL Inactive ZOFRAN ODT 4 MG TBDP 1 po q6hr PRN Nausea ZOFRAN ODT 4 MG TBDP 988113 ONDANSETRON Inactive CHLORASEPTIC MAX SORE THROAT 15-10 MG LOZG 1 every 2 hours prn 2 /04/30 CHLORASEPTIC MAX SORE THROAT 15-10 MG LOZG BENZO ARINA-MENTHOL Inactive COMTREX COLD/COUGH DAY/NITE MS 5-2-10-325 MG MISC 2 caps deja ry 4 hours COMTREX COLD/COUGH DAY/NITE MS 5-2-10-325 MG MIS C [id number] Inactive [facility] TUSSIN COUGH/COLD CF 5-10-100 MG/5ML LIQD 2 teaspoons ev eliud 4 hours [facility] TUSSIN COUGH/COLD CF 5-10-100 MG/5ML LIQD [id number] Inactive IBUPROFEN 800 MG TABS take one po Q 8 hours IBUPROFEN 800 MG TABS IBUPROFEN Inactive VITAMINS 0.8 MG TABS take 1 tab po qday 08/08 VITAMINS 0.8 MG TABS [id number] Inactive TESSALON PERLES 100 MG CAP 1 tablet by mouth 3 times daily 11/01 TESSALON PERLES 100 MG CAP [id number] BENZONATATE Inact zaid AMOXICILLIN 500 MG CAP 1 tab by mouth 3 times daily 08/12/16 AMOXICILLIN 500 MG CAP 826159 AMOXICILLIN Inactive GUAIFENESIN-CODEINE 100-10 MG/5ML ORAL SYRP 2 tsp every 6 hours prn GUAIFENESIN-CODEINE 100-10 MG/5ML ORAL SYRP 535565 GUAIFENESIN-CODEINE Inactive VICKS DAYQUIL SEVERE COLD/FLU TABS 1 tab every 6 hours prn 12/10 VICKS DAYQUIL SEVERE COLD/FLU TABS PHENYLEPHRINE -DM-GG-APAP TABS Inactive BACTRIM DS 800-160 MG TABS 1 twice a day BACTRIM DS 800- 160 MG TABS 098694 SULFAMETHOXAZOLE-TRIMETHOPRIM Inactive PROMETHAZINE HCL 25 MG TABS 1 four times a day as needed for vomiting PROMETHAZINE HCL 25 MG TABS 158903 PROMETHAZINE HCL Inactive ZYRTEC ALLERGY 10 MG CAPS 1 po qd ZY RTEC ALLERGY 10 MG CAPS CETIRIZINE HCL Inactive MACROBID 100 MG CAP 1 cap by mouth twice daily MACROBID 100 MG CAP 0305536 NITROFURANTOIN MONOHYD MACRO Inactive LOMOTIL 2.5-0.025 MG TABS 1 to 2 four times a day as needed for diarrhea LOMOTIL 2.5-0.025 MG TABS 1870093 DIPHENOXYLATE-A TROPINE Inactive CYCLOBENZAPRINE HCL 10 MG TABS 1/2 - 1 tablet by mouth three times daily as needed for muscle spasm/pain CYCLOBENZAP RINE HCL 10 MG TABS 856541 CYCLOBENZAPRINE HCL Inactive AMOXICILLIN 500 MG TABS 2 tabs twice a day for 10 days AMOXICILLIN 500 MG TABS 740949 AMOXICILLIN Inactive LOMOTIL 2.5-0.025 MG TAB 1 to 2 four times a day as needed f or diarrhea LOMOTIL 2.5-0.025 MG TAB 2049532 DIPHENOXYLATE-AT ROPINE Inactive ZOFRAN 4 MG ORAL TABS 1 TAB PO Q 6 HRS PRN NAUSEA 2014 ZOFRAN 4 MG ORAL TABS 602397 ONDANSETRON HCL Inactive CITRATE OF MAGNESIA ORAL SOLN 1 bottle today for constipation 20 07/10/15 CITRATE OF MAGNESIA ORAL SOLN 9909263 MAGNESIUM CITRATE Inactive PROMETHAZINE HCL 12.5 MG TABS 1 tablet by mouth every 6 hours as needed for nausea/vomiting PROMETHAZINE HCL 12.5 MG TABS 136455 PROMETHAZINE HCL Inactive PREDNISONE 20 MG TAB 1 tablet twice daily for 2 d ays, then 1 tablet once daily for 2 days PREDNISONE 20 MG TAB 105814 PREDNISONE Inac tive ALPRAZOLAM 0.25 MG TAB 1 tablet by mouth every 8 hours as ne eded for stress ALPRAZOLAM 0.25 MG TAB 660746 ALPRAZOLAM Inact zaid FLONASE 50 MCG/ACT SUSP 1 spray each nostril twice d aily for allergies and runny nose until gone FLONASE 50 MCG/ACT SUSP 9558122 FLUTICASONE PROPIONATE Inactive PREDNISONE 20 MG TAB 1 tablet daily for airway inflammation 2015 PREDNISONE 20 MG TAB 170118 PREDNISONE Inactive NAPROXEN 500 MG TAB Take 1 tab BID NAPROXEN 500 MG TAB 685481 NAPROXEN Inactive ZOLOFT 50 MG TAB 1 tablet by mouth daily ZOLOFT 50 MG TAB 316981 SERTRALINE HCL Inactive LOMOTIL 2.5-0.025 MG TAB 1 tab po four times a day as needed for diarrhea LOMOTIL 2.5-0.025 MG TAB 3262817 DIPHENOXYLATE-AT ROPINE Inactive CETIRIZINE HCL 10 MG ORAL TABS 1 po qd PRN Allergies 2 CETIRIZINE HCL 10 MG ORAL TABS 4968500 CETIRIZINE HCL Inactive TUSSIONEX PENNKINETIC ER 10-8 MG/5ML LQCR 5ml po q12hr PRN Cough TUSSIONEX PENNKINETIC ER 10-8 MG/5ML LQCR HYDROCOD POLST-CHLORPHEN POLST Inactive NEXPLANON IMPL right arm subcutaneously NEXPLANO N IMPL ETONOGESTREL IMPL Inactive PROTONIX 40 MG ORAL TBEC 1 po q a.m. PRO TONIX 40 MG ORAL TBEC 382559 PANTOPRAZOLE SODIUM Inactive AMOXICILLIN 500 MG TABS take 1 tab po TID AMOXICILLIN 500 MG TABS 696534 AMOXICILLIN Inactive AMOXICILLIN 500 MG CAP 1 tab by mouth 3 times daily 09/23/20 AMOXICILLIN 500 MG CAP 299300 AMOXICILLIN Inactive ZITHROMAX 250 MG TAB 2 po today, then 1 po q days 2-5 ZITHROMAX 250 MG TAB 871458 AZITHROMYCIN Inactive ZITHROMAX 250 MG TAB 2 po today, then 1 po q days 2-5 ZITHROMAX 250 MG TAB 878525 AZITHROMYCIN Inactive AZITHROMYCIN 500 MG TABS 1 PO q day x 6 days 3 AZITHROMYCIN 500 MG TABS 1890424 AZITHROMYCIN Inactive BACTRIM 400-80 MG TABS take one po BID BA CTRIM 400-80 MG TABS 715218 SULFAMETHOXAZOLE-TRIMETHOPRIM Inactive AZITHROMYCIN 250 MG TABS 2 po qd x 1 day, then 1 po qd x 4 days AZITHROMYCIN 250 MG TABS 411588 AZITHROMYCIN Inactiv e PREDNISONE 20 MG TAB 2 tabs daily for 3 days, 1 t ab daily for 3 days, 1/2 tab daily for 2 days PREDNISONE 20 MG TAB 390628 PREDNISON E Inactive ZITHROMAX 250 MG TAB 2 po today, then 1 po q days 2-5 ZITHROMAX 250 MG TAB 195487 AZITHROMYCIN Inactive FLAGYL 500 MG TAB 1 tablet by mouth two times daily 07/11/29 FLAGYL 500 MG TAB 176300 METRONIDAZOLE Inactive AUGMENTIN 875-125 MG TAB 1 tab by mouth twice daily with food 08/12/16 AUGMENTIN 875-125 MG TAB 167442 AMOXICILLIN-POT CLAVULA ANGELO Inactive NAPROXEN 500 MG TAB one tab PO BID NAPROXEN 500 MG TAB 110468 NAPROXEN Inactive PREDNISONE 20 MG TAB 2 tabs daily for 3 days, 1 t ab daily for 3 days, 1/2 tab daily for 2 days PREDNISONE 20 MG TAB 011735 PREDNISON E Inactive AZITHROMYCIN 250 MG TABS 2 po qd x 1 day, then 1 po qd x 4 days AZITHROMYCIN 250 MG TABS 090430 AZITHROMYCIN Inactiv e PREDNISONE 20 MG TAB 2 tabs daily for 3 days, 1 t ab daily for 3 days, 1/2 tab daily for 2 days PREDNISONE 20 MG TAB 946537 PREDNISON E Inactive ZITHROMAX Z-EMIL 250 MG TABS 2 today, then 1 daily for 4 days 201 03/31/18 ZITHROMAX Z-EMIL 250 MG TABS 038153 AZITHROMYCIN Inac tive CEFDINIR 300 MG CAPS 1 po BID x 10 days C EFDINIR 300 MG CAPS 774464 CEFDINIR Inactive CEFDINIR 300 MG CAPS 1 po BID x 10 days C EFDINIR 300 MG CAPS 20030127 CEFDINIR Inactive PREDNISONE 20 MG TAB 2 tabs daily for 3 days, 1 t ab daily for 3 days, 1/2 tab daily for 2 days PREDNISONE 20 MG TAB 056400 PREDNISON E Inactive BACTRIM DS 800-160 MG TAB 1 tab by mouth twice daily 2 BACTRIM DS 800-160 MG TAB 382204 TRIMETHOPRIM-SULFAMETHOXAZOLE Inac tive Advance Directives Directive Description [...] 263 10^3/MM^3 10*3/mm3 142-424 Lab Report: Chlamydia/GC APTIMA/[id number] - Lab chlamydia DNA probe NOT DETECTED NOT DETECTED Lab Report: Chlamydia/GC APTIMA/[id number] - Microbiology Neisseria gonorrhoeae DNA probe NOT [...] 5.0-8.5 Encounters Code Encounter Date Provider Facility CPT-37890 Level 3 Est. Patient 11:35:15 [employer] Arie mcqueen MD [facility] CPT-58908 Level 3 Est. Patient 15:40:28 CDT Steve [facility] CPT-48498 Level 3 Est. Patient 16:40:36 CDT Arie mcqueen MD [facility] CPT-94214 Level 4 Est. Patient 15:29:22 [employer] Arie mcqueen MD [facility] CPT-77186 Level 3 Est. Patient 15:18:16 [employer] Jono black [facility] CPT-86107 Level 4 Est. Patient 12:08:40 [employer] Steve [facility] CPT-51101 Level 3 Est. Patient 09:24:42 CDT Bladeon [facility] CPT-61669 Level 3 Est. Patient 09:12:56 CDT Arie mcqueen MD [facility] CPT-85267 Level 3 Est. Patient 16:40:54 CDT Jose Zhong MD [facility] CPT-24298 Level 2 Est. Patient 13:01:13 CDT Steve [facility]-75078 Level 3 Est. Patient 11:55:30 [employer] Jono black [facility] CPT-69332 Level 3 Est. Patient 09:52:36 [employer] Steve PAREKHN [facility] CPT-29335 Level 3 Est. Patient 16:25:33 [employer]ER Rich Rosales MD [facility]-37280 Level 3 Est. Patient 20:33:55 CDT Arie mcqueen MD [facility]-78652 Level 3 Est. Patient 14:18:20 CDT Rich Rosales MD [facility]-05529 Level 4 Est. Patient 09:34:31 CDT Arie mcqueen MD [facility]-34505 Level 3 Est. Patient 09:08:55 [employer] Liliana vincent MD PhD [facility]-71727 Level 3 Est. Patient 16:44:07 [employer] Arie mcqueen MD [facility] CPT-43945 Level 3 Est. Patient 10:44:27 CDT Arie mcqueen MD [facility]-58257 Level 3 Est. Patient 08:55:41 CDT Jose Zhong MD [facility]-76524 Level 3 Est. Patient 18:37:31 CDT Liliana vincent MD PhD [facility]-95588 Level 3 Est. Patient 14:28:23 CDT Abelardo HERNANDEZ [facility]-75925 Level 3 Est. Patient 15:18:13 [employer] Arie mcqueen MD [facility]-11776 Level 3 Est. Patient 10:11:29 [employer] Arie mcqueen MD [facility]-95911 Level 3 Est. Patient 10:55:57 [employer] Jono black DO [facility] CPT-08076 Level 3 Est. Patient 17:29:05 CDT Arie mcqueen MD [facility] Procedures Code Procedure Name Date Entry Date Standard Desc ription CPT-71586 Nexplanon Removal 15:40:28 CDT CPT-25130 Sono transvag pelvis non OB uterus ovari es cervix - XRAY USE ONLY 08:58:14 [employer] CPT-56857 UA w micro - LAB USE ONLY 16:04:56 [employer]ER 2015 CPT-57020 Wet Prep/GEN - LAB USE ONLY 16:04:56 SILVER [employer]ER 20 08/10/29 CPT-16903 First Vx - Ix admin via ID I M or jet injects without counseling by physician 16:57:10 CDT CPT-51987 Fluzone Preservative Free Intramuscular Suspension 16:57:10 CDT CPT-J0696 Rocephin 1000 mg (Ceftriaxone) 11:49:23 CDT CPT-J1040 Depo Medrol 80 mg (Methyl Prednisolone A cetate) 11:49:23 CDT CPT-J1100 Decadron 8mg (Dexamethasone) 11:49:23 CDT 2 CPT-93319 Abx/Therapy Injection 11:49:23 CDT CPT-19850 Abx/Therapy Injection 11:49:23 CDT CPT-27138 Abd compl w upright 09:07:26 [employer] CPT-13069 Ear Wash 16:12:47 [employer]ER CPT-OV Office Visit 11:12:01 CDT CPT-OV Office Visit 15:30:23 CDT CPT-45259 Sono pelvis non OB uterus ovaries cervix 15:50:44 CDT CPT-24238 Hand comp min 3V 16:42:32 CDT CPT-82518 Abd compl w upright 12:17:01 CDT CPT-71968 Nexplanon Placement 15:07:39 [employer]IL[employer]ER CPT-46401 Removal of IUD 15:07:39 [employer]IL[employer]ER CPT-59976 TB Tubersol 12:09:32 CDT CPT-96518 TB Tubersol 13:55:43 CDT
--- OUTSIDE RECORDS SUMMARY | 2020-03-03 08:19 | XMS REPORT | Clinical Summary ---
Author Author Admin, Diamante Marcelo Organization [facility] Address Unknown Phone Unavailable Allergies, Adverse [...] cute pharyngitis Nausea 787.02 Active Brii Larson SOFTWARE ENGINEER INTERN Nausea alone URI 465.9 Active Jono Gagnon DO Acu te upper respiratory infections of unspecified site Allergic rhinitis 477.9 Active Brii Christianson PRN Allergic rhinitis, cause unspecified Abdominal pain, right lower quadrant 789.03 Active Jose Zhong MD Abdominal pain, right lower quadrant Urinary frequency 788.41 Inactive Roseann Crawford Urinary frequency Urinary frequency 788.41 Active 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, SYSTEMS SOFTWARE DEVELOPER Urinary frequency Sinusitis - acute 461.9 Active Brii Christianson PRN Acute sinusitis, unspecified Anxiety with depression 300.4 Active Glenn Larson SOFTWARE ENGINEER INTERN Dysthymic disorder URI 465.9 Active Jono Gagnon DO Acu te upper respiratory infections of unspecified site Vaginal bleeding 623.8 Active Brii MARROQUIN RN Other specified noninflammatory disorders of vagina High risk sexual behavior V69.2 Active Arie Casper MD High-risk sexual behavior GERD 530.81 Active Arie Casper MD Esophageal reflux Encounter for surveillance of implantable subdermal contraceptiv e Active Brii Larson SOFTWARE ENGINEER INTERN Vaginal bleeding 623.8 Active Arie Casper MD [...] 4 hours as needed for cough GUAIFENESIN-CODEINE 44927379355 Active Blaine Casper MD Active ZITHROMAX Z-EMIL 250 MG ORAL TABLET 2 today, then 1 daily for 4 d ays AZITHROMYCIN 45281094730 No Longer Active Arie Casper MD Active PROTONIX 40 MG ORAL TABLET DELAYED RELEASE 1 po q a.m. PANTOPRAZOLE SODIUM 58202643333 No Longer Active Arie Casper MD Active BACTRIM DS 800-160 MG ORAL TABLET 1 tab by mouth twice daily 201 05/02/30 TRIMETHOPRIM-SULFAMETHOXAZOLE 23979963900 No Longer Active R [facility] Active NEXPLANON IMPLANT right arm subcutaneously ETONOGESTREL IMPL 69016224706 No Longer Active Brii Larson APRN Acti ve TUSSIONEX PENNKINETIC ER 10-8 MG/5ML ORAL SUSPENSION E XTENDED RELEASE 5ml po q12hr PRN Cough HYDROCOD POLST-CHLORPHEN POLST 5 7990911536 No Longer Active Brii Larson APRN Active CETIRIZINE HCL 10 MG ORAL TABLET 1 po qd PRN Allergies CETIRIZINE HCL 69932644363 No Longer Active Brii Larson APRN Ac tive PREDNISONE 20 MG ORAL TABLET 2 tabs daily for 3 days, 1 tab daily for 3 days, 1/2 tab daily for 2 days PREDNISONE 59850453547 No Longer Active Arie Casper MD Active LOMOTIL 2.5-0.025 MG ORAL TABLET 1 tab po four times a day as needed for diarrhea DIPHENOXYLATE-ATROPINE 27896600127 No Lo nger Active Arie Casper MD Active ZOLOFT 50 MG ORAL TABLET 1 tablet by mouth daily 12/08 SERTRALINE HCL 85442990257 No Longer Active Arie Casper MD Ac tive NAPROXEN 500 MG ORAL TABLET Take 1 tab BID NAPR OXEN 12625912917 No Longer Active Arie Casper MD Active CEFDINIR 300 MG ORAL CAPSULE 1 po BID x 10 days CEFDINIR 24758251851 No Longer Active Brii Larson APRN Active PREDNISONE 20 MG ORAL TABLET 1 tablet daily for airway inflammat ion PREDNISONE 03302536375 No Longer Active Brii Larson APRN Active CEFDINIR 300 MG ORAL CAPSULE 1 po BID x 10 days CEFDINIR 71338548568 No Longer Active Jono Gagnon DO Active FLONASE 50 MCG/ACT NASAL SUSPENSION 1 spray each nostr il twice daily for allergies and runny nose until gone FLUT ICASONE PROPIONATE 77474136699 No Longer Active Jono Gagnon DO Active ALPRAZOLAM 0.25 MG ORAL TABLET 1 tablet by mouth every 8 hours as needed for stress ALPRAZOLAM 51146732873 No Longer Active Jono Gagnon DO Active ZITHROMAX Z-EMIL 250 MG ORAL TABLET 2 today, then 1 daily for 4 d ays AZITHROMYCIN 41245155582 No Longer Active Arie Casper MD Active PREDNISONE 20 MG ORAL TABLET 2 tabs daily for 3 days, 1 tab daily for 3 days, 1/2 tab daily for 2 days PREDNISONE 95338380327 No Longer Active Brii Larson APRN Active PREDNISONE 20 MG ORAL TABLET 1 tablet twice daily for 2 days, then 1 tablet once daily for 2 days PREDNISONE 02661754895 No Longer Active Brii Larson APRN Active PROMETHAZINE HCL 12.5 MG ORAL TABLET 1 tablet by mouth every 6 hours as needed for nausea/vomiting PROMETHAZINE HCL 96626207964 No L onger Active Jono Gagnon DO Active CITRATE OF MAGNESIA ORAL SOLUTION 1 bottle today for constipatio n MAGNESIUM CITRATE 06852650919 No Longer Active Jono Gagnon DO Active ZOFRAN 4 MG ORAL TABLET 1 TAB PO Q 6 HRS PRN NAUSEA 20 07/10/15 ONDANSETRON HCL 37710321515 No Longer Active Brii Larson APRN A ctive LOMOTIL 2.5-0.025 MG ORAL TABLET 1 to 2 four times a day as needed for diarrhea DIPHENOXYLATE-ATROPINE 35503834158 No Longer Active January Larson APRN Active AMOXICILLIN 500 MG ORAL TABLET 2 tabs twice a day for 10 days 20 07/09/11 AMOXICILLIN 57134817039 No Longer Active Brii Larson APRN Active CYCLOBENZAPRINE HCL 10 MG ORAL TABLET 1/2 - 1 tablet b y mouth three times daily as needed for muscle spasm/pain CYCLOBENZAPRINE HCL 55167411234 No Longer Active Arie Casper MD Active LOMOTIL 2.5-0.025 MG ORAL TABLET 1 to 2 four times a day as needed for diarrhea DIPHENOXYLATE-ATROPINE 37834321241 No Longer Active Fozia Casper MD Active MACROBID 100 MG ORAL CAPSULE 1 cap by mouth twice daily NITROFURANTOIN MONOHYD MACRO 74337039949 No Longer Active Arie Casper MD Active ZYRTEC ALLERGY 10 MG ORAL CAPSULE 1 po qd CE TIRIZINE HCL 76765688797 No Longer Active Arie Casper MD Active AZITHROMYCIN 250 MG ORAL TABLET 2 po qd x 1 day, then 1 po q d x 4 days AZITHROMYCIN 77198462634 No Longer Active Jillina Fra naomi SOFTWARE ENGINEER INTERN Active PREDNISONE 20 MG ORAL TABLET 2 tabs daily for 3 days, 1 tab daily for 3 days, 1/2 tab daily for 2 days PREDNISONE 79757607801 No Longer Active Jillina Fradeepl SOFTWARE ENGINEER INTERN Active PROMETHAZINE HCL 25 MG ORAL TABLET 1 four times a day as nee ded for vomiting PROMETHAZINE HCL 07356775533 No Longer Active Myrna Roberto MD Active BACTRIM DS 800-160 MG ORAL TABLET 1 twice a day 05/30 SULFAMETHOXAZOLE-TRIMETHOPRIM 57443232212 No Longer Active Myrna Roberto MD Active VICKS DAYQUIL SEVERE COLD/FLU TABLET 1 tab every 6 hours prn 201 02/22/17 [id number] TABS 16324525045 No Longer Active Chris Roberto MD Active GUAIFENESIN-CODEINE 100-10 MG/5ML ORAL SYRUP 2 tsp every 6 hours prn GUAIFENESIN-CODEINE 60108206820 No Longer Active Myrna Roberto MD Active NAPROXEN 500 MG ORAL TABLET one tab PO BID NAPR OXEN 49963758822 No Longer Active Myrna Roberto MD Active AUGMENTIN 875-125 MG ORAL TABLET 1 tab by mouth twice daily with food AMOXICILLIN-POT CLAVULANATE 89873487042 No Longer Act zaid Liliana Estrada MD PhD Active AMOXICILLIN 500 MG ORAL CAPSULE 1 tab by mouth 3 times daily 201 02/21/05 AMOXICILLIN 14645411878 No Longer Active Liliana Estrada MD PhD Active TESSALON PERLES 100 MG ORAL CAPSULE 1 tablet by mouth 3 times da cory BENZONATATE 68283984050 No Longer Active Lilinaa Estrada MD PhD Active FLAGYL 500 MG ORAL TABLET 1 tablet by mouth two times daily 2014 METRONIDAZOLE 87534929688 No Longer Active Nilam Doran tive ZITHROMAX 250 MG ORAL TABLET 2 po today, then 1 po q days 2-5 20 06/08/16 AZITHROMYCIN 79880600863 No Longer Active Arie Casper MD Active VITAMINS 0.8 MG ORAL TABLET take 1 tab po qday AUSVOTHE-IHP-AX-FA 16336418672 No Longer Active Arie Casper MD Active IBUPROFEN 800 MG ORAL TABLET take one po Q 8 hours 201 02/01/16 IBUPROFEN 78776417072 No Longer Active Arie Casper MD Acti ve [facility] TUSSIN COUGH/COLD CF 5-10-100 MG/5ML ORAL LIQUID 2 teasp oons every 4 hours [id number] 82172311557 No Longer Active Blaine Casper MD Active COMTREX COLD/COUGH DAY/NITE MS 5-2-10-325 MG ORAL 2 caps deja ry 4 hours [id number] 61275303393 No Longer Active Landon Casper MD Active CHLORASEPTIC MAX SORE THROAT 15-10 MG MOUTH/THROAT LOZENGE 1 every 2 hours prn BENZOCAINE-MENTHOL 66222130502 No Longer Active Arie Casper MD Active PREDNISONE 20 MG ORAL TABLET 2 tabs daily for 3 days, 1 tab daily for 3 days, 1/2 tab daily for 2 days PREDNISONE 10443893261 No Longer Active Jose Zhong MD Active AZITHROMYCIN 250 MG ORAL TABLET 2 po qd x 1 day, then 1 po q d x 4 days AZITHROMYCIN 79125250656 No Longer Active Jose Mcwilliams MD Active ZOFRAN ODT 4 MG ORAL TABLET DISINTEGRATING 1 po q6hr PRN Nausea ONDANSETRON 86588615259 No Longer Active Rich Rosales MD Active ZOFRAN 4 MG ORAL TABLET 1 tablet every 4 hours ONDANSETRON HCL 12120702891 No Longer Active Rich Rosales MD Activ e MUCINEX 600 MG ORAL TABLET EXTENDED RELEASE 12 HOUR Ta ke 1-2 tablets every 12 hours GUAIFENESIN 08752418173 No Longer Active Rich Rosales MD Active BACTRIM 400-80 MG ORAL TABLET take one po BID SULFAMETHOXAZOLE-TRIMETHOPRIM 57689558963 No Longer Active Abelardo HERNANDEZ Active AZITHROMYCIN 500 MG ORAL TABLET 1 PO q day x 6 days 20 03/02/23 AZITHROMYCIN 54640845877 No Longer Active Tin HERNANDEZ Activ e ZITHROMAX 250 MG ORAL TABLET 2 po today, then 1 po q days 2-5 20 10/03/08 AZITHROMYCIN 86255560340 No Longer Active Arie Casper MD Active ZITHROMAX 250 MG ORAL TABLET 2 po today, then 1 po q days 2-5 20 09/23/25 AZITHROMYCIN 81910396449 No Longer Active Arie Casper MD Active AMOXICILLIN 500 MG ORAL CAPSULE 1 tab by mouth 3 times daily 201 11/24/09 AMOXICILLIN 68142614338 No Longer Active Arie Casper MD Active BACTRIM DS 800-160 MG ORAL TABLET 1 tab by mouth twice daily 201 11/03/14 TRIMETHOPRIM-SULFAMETHOXAZOLE 77824213945 No Longer Active Fozia Casper MD Active AMOXICILLIN 500 MG ORAL TABLET take 1 tab po TID 08/05 AMOXICILLIN 13485193279 No Longer Active Arie Casper MD Acti ve BACTRIM DS 800-160 MG ORAL TABLET 1 tab by mouth twice daily 201 11/03/14 BACTRIM DS 800-160 MG ORAL TABLET 162066 TRIMETHOPRIM-SULFAMETHOXAZOLE Inactive MUCINEX 600 MG ORAL TABLET EXTENDED RELEASE 12 HOUR Ta ke 1-2 tablets every 12 hours MUCINEX 600 MG ORAL TABLET EXTENDED RELEA SE 12 HOUR GUAIFENESIN Inactive ZOFRAN 4 MG ORAL TABLET 1 tablet every 4 hours ZOFRAN 4 MG ORAL TABLET 136950 ONDANSETRON HCL Inactive ZOFRAN ODT 4 MG ORAL TABLET DISINTEGRATING 1 po q6hr PRN Nausea ZOFRAN ODT 4 MG ORAL TABLET DISINTEGRATING 112426 ONDAN SETRON Inactive CHLORASEPTIC MAX SORE THROAT 15-10 MG MOUTH/THROAT LOZENGE 1 every 2 hours prn CHLORASEPTIC MAX SORE THROAT 15-10 MG MOUTH/THROAT LOZENGE BENZOCAINE-MENTHOL Inactive COMTREX COLD/COUGH DAY/NITE MS 5-2-10-325 MG ORAL 2 caps deja ry 4 hours COMTREX COLD/COUGH DAY/NITE MS 5-2-10-325 MG ORA L [id number] Inactive [facility] TUSSIN COUGH/COLD CF 5-10-100 MG/5ML ORAL LIQUID 2 teasp oons every 4 hours [facility] TUSSIN COUGH/COLD CF 5-10-100 MG/5ML ORAL LI QUID [id number] Inactive IBUPROFEN 800 MG ORAL TABLET take one po Q 8 hours 201 02/01/16 IBUPROFEN 800 MG ORAL TABLET IBUPROFEN Inactive VITAMINS 0.8 MG ORAL TABLET take 1 tab po qday VITAMINS 0.8 MG ORAL TABLET [id number] E-FA Inactive TESSALON PERLES 100 MG ORAL CAPSULE 1 tablet by mouth 3 times da cory TESSALON PERLES 100 MG ORAL CAPSULE 019170 BENZONATATE Inactive AMOXICILLIN 500 MG ORAL CAPSULE 1 tab by mouth 3 times daily 201 02/21/05 AMOXICILLIN 500 MG ORAL CAPSULE 850343 AMOXICILLIN Inactive GUAIFENESIN-CODEINE 100-10 MG/5ML ORAL SYRUP 2 tsp every 6 hours prn GUAIFENESIN-CODEINE 100-10 MG/5ML ORAL SYRUP 848641 GUAIFENESIN-CODEINE Inactive VICKS DAYQUIL SEVERE COLD/FLU TABLET 1 tab every 6 hours prn 201 02/22/17 VICKS DAYQUIL SEVERE COLD/FLU TABLET PHENYLEPHRI MG-QN-IU-APAP TABS Inactive BACTRIM DS 800-160 MG ORAL TABLET 1 twice a day 05/30 BACTRIM DS 800-160 MG ORAL TABLET 772482 SULFAMETHOXAZOLE-TRIMETHOPRIM Inactiv e PROMETHAZINE HCL 25 MG ORAL TABLET 1 four times a day as nee ded for vomiting PROMETHAZINE HCL 25 MG ORAL TABLET 738401 PROMETHAZINE HCL Inactive ZYRTEC ALLERGY 10 MG ORAL CAPSULE 1 po qd ZYRTEC ALLERGY 10 MG ORAL CAPSULE CETIRIZINE HCL Inactive MACROBID 100 MG ORAL CAPSULE 1 cap by mouth twice daily MACROBID 100 MG ORAL CAPSULE 6113746 NITROFURANTOIN MONOHYD MACRO In active LOMOTIL 2.5-0.025 MG ORAL TABLET 1 to 2 four times a day as needed for diarrhea LOMOTIL 2.5-0.025 MG ORAL TABLET 2881561 DIPHENOXYLATE-ATROPINE Inactive CYCLOBENZAPRINE HCL 10 MG ORAL TABLET 1/2 - 1 tablet b y mouth three times daily as needed for muscle spasm/pain CYCLOBEN ZAPRINE HCL 10 MG ORAL TABLET 942432 CYCLOBENZAPRINE HCL Inactive AMOXICILLIN 500 MG ORAL TABLET 2 tabs twice a day for 10 days 07/09/11 AMOXICILLIN 500 MG ORAL TABLET 720670 AMOXICILLIN I nactive LOMOTIL 2.5-0.025 MG ORAL TABLET 1 to 2 four times a day as needed for diarrhea LOMOTIL 2.5-0.025 MG ORAL TABLET 1119271 DIPHENOXYLATE-ATROPINE Inactive ZOFRAN 4 MG ORAL TABLET 1 TAB PO Q 6 HRS PRN NAUSEA 07/10/15 ZOFRAN 4 MG ORAL TABLET 454024 ONDANSETRON HCL Inactive CITRATE OF MAGNESIA ORAL SOLUTION 1 bottle today for constipatio n CITRATE OF MAGNESIA ORAL SOLUTION 2004584 MAGNESIUM CITR ATE Inactive PROMETHAZINE HCL 12.5 MG ORAL TABLET 1 tablet by mouth every 6 hours as needed for nausea/vomiting PROMETHAZINE HCL 12.5 MG ORA L TABLET 500125 PROMETHAZINE HCL Inactive PREDNISONE 20 MG ORAL TABLET 1 tablet twice daily for 2 days, then 1 tablet once daily for 2 days PREDNISONE 20 MG ORAL TABLET 654882 PREDNISONE Inactive ALPRAZOLAM 0.25 MG ORAL TABLET 1 tablet by mouth every 8 hours as needed for stress ALPRAZOLAM 0.25 MG ORAL TABLET 152444 ALPRA ZOLAM Inactive FLONASE 50 MCG/ACT NASAL SUSPENSION 1 spray each nostr il twice daily for allergies and runny nose until gone FLON ASE 50 MCG/ACT NASAL SUSPENSION 5220291 FLUTICASONE PROPIONATE Inactive PREDNISONE 20 MG ORAL TABLET 1 tablet daily for airway inflammat ion PREDNISONE 20 MG ORAL TABLET 454786 PREDNISONE [place] ctive NAPROXEN 500 MG ORAL TABLET Take 1 tab BID NAPROXEN 500 MG ORAL TABLET 947651 NAPROXEN Inactive ZOLOFT 50 MG ORAL TABLET 1 tablet by mouth daily 12/08 ZOLOFT 50 MG ORAL TABLET 441386 SERTRALINE HCL Inactive LOMOTIL 2.5-0.025 MG ORAL TABLET 1 tab po four times a day as needed for diarrhea LOMOTIL 2.5-0.025 MG ORAL TABLET 5910231 DIPHENOXYLATE-ATROPINE Inactive CETIRIZINE HCL 10 MG ORAL TABLET 1 po qd PRN Allergies CETIRIZINE HCL 10 MG ORAL TABLET 3172446 CETIRIZINE HCL Inactiv e TUSSIONEX PENNKINETIC ER 10-8 MG/5ML ORAL SUSPENSION E XTENDED RELEASE 5ml po q12hr PRN Cough TUSSIONEX PENNKINETI C ER 10-8 MG/5ML ORAL SUSPENSION EXTENDED RELEASE HYDROCOD POLST-CHLORPHEN POLST I nactive NEXPLANON IMPLANT right arm subcutaneously NEXPLANON IMPLANT ETONOGESTREL IMPL Inactive PROTONIX 40 MG ORAL TABLET DELAYED RELEASE 1 po q a.m. PROTONIX 40 MG ORAL TABLET DELAYED RELEASE 208343 PANTOPRAZOLE SODI UM Inactive AMOXICILLIN 500 MG ORAL TABLET take 1 tab po TID 08/05 AMOXICILLIN 500 MG ORAL TABLET 717554 AMOXICILLIN Inactive AMOXICILLIN 500 MG ORAL CAPSULE 1 tab by mouth 3 times daily 201 11/24/09 AMOXICILLIN 500 MG ORAL CAPSULE 104771 AMOXICILLIN Inactive ZITHROMAX 250 MG ORAL TABLET 2 po today, then 1 po q days 2-5 20 09/23/25 ZITHROMAX 250 MG ORAL TABLET 813262 AZITHROMYCIN [place] ctive ZITHROMAX 250 MG ORAL TABLET 2 po today, then 1 po q days 2-5 20 10/03/08 ZITHROMAX 250 MG ORAL TABLET 261438 AZITHROMYCIN [place] ctive AZITHROMYCIN 500 MG ORAL TABLET 1 PO q day x 6 days 20 03/02/23 AZITHROMYCIN 500 MG ORAL TABLET 1211173 AZITHROMYCIN Inactive BACTRIM 400-80 MG ORAL TABLET take one po BID BACTRIM 400- 80 MG ORAL TABLET 726719 SULFAMETHOXAZOLE-TRIMETHOPRIM Inactive AZITHROMYCIN 250 MG ORAL TABLET 2 po qd x 1 day, then 1 po q d x 4 days AZITHROMYCIN 250 MG ORAL TABLET 717614 AZITHROMY ALLISON Inactive PREDNISONE 20 MG ORAL TABLET 2 tabs daily for 3 days, 1 tab daily for 3 days, 1/2 tab daily for 2 days PREDNISONE 20 MG ORAL T ABLET 726921 PREDNISONE Inactive ZITHROMAX 250 MG ORAL TABLET 2 po today, then 1 po q days 2-5 20 06/08/16 ZITHROMAX 250 MG ORAL TABLET 919575 AZITHROMYCIN Arlen ctive FLAGYL 500 MG ORAL TABLET 1 tablet by mouth two times daily 2014 FLAGYL 500 MG ORAL TABLET 228158 METRONIDAZOLE Inacti ve AUGMENTIN 875-125 MG ORAL TABLET 1 tab by mouth twice daily with food AUGMENTIN 875-125 MG ORAL TABLET 099622 AMOXICIL ELSA-POT CLAVULANATE Inactive NAPROXEN 500 MG ORAL TABLET one tab PO BID NAPROXEN 500 MG ORAL TABLET 212083 NAPROXEN Inactive PREDNISONE 20 MG ORAL TABLET 2 tabs daily for 3 days, 1 tab daily for 3 days, 1/2 tab daily for 2 days PREDNISONE 20 MG ORAL T ABLET 988224 PREDNISONE Inactive AZITHROMYCIN 250 MG ORAL TABLET 2 po qd x 1 day, then 1 po q d x 4 days AZITHROMYCIN 250 MG ORAL TABLET 345979 AZITHROMY ALLISON Inactive PREDNISONE 20 MG ORAL TABLET 2 tabs daily for 3 days, 1 tab daily for 3 days, 1/2 tab daily for 2 days PREDNISONE 20 MG ORAL T ABLET 464941 PREDNISONE Inactive ZITHROMAX Z-EMIL 250 MG ORAL TABLET 2 today, then 1 daily for 4 d ays ZITHROMAX Z-EMIL 250 MG ORAL TABLET 031306 AZITHROMYCIN Inactive CEFDINIR 300 MG ORAL CAPSULE 1 po BID x 10 days 12/18 CEFDINIR 300 MG ORAL CAPSULE 350399 CEFDINIR Inactive CEFDINIR 300 MG ORAL CAPSULE 1 po BID x 10 days CEFDINIR 300 MG ORAL CAPSULE 20030127 CEFDINIR Inactive PREDNISONE 20 MG ORAL TABLET 2 tabs daily for 3 days, 1 tab daily for 3 days, 1/2 tab daily for 2 days PREDNISONE 20 MG ORAL T ABLET 196468 PREDNISONE Inactive BACTRIM DS 800-160 MG ORAL TABLET 1 tab by mouth twice daily 201 05/02/30 BACTRIM DS 800-160 MG ORAL TABLET 081255 TRIMETHOPRIM-SULFAMETHOXAZOLE Inactive ZITHROMAX Z-EMIL 250 MG ORAL TABLET 2 today, then 1 daily for 4 d ays ZITHROMAX Z-EMIL 250 MG ORAL TABLET 984089 AZITHROMYCIN Inactive Advance Directives Directive Description Start [...] Range Description Lab Report: CBC, [place] [facility] [place] leukocyte count, [...] 263 10^3/MM^3 10*3/mm3 [phone] Lab Report: Chlamydia/GC APTIMA/[id number] - Lab chlamydia DNA probe NOT DETECTED NOT DETECTED Lab Report: Chlamydia/GC APTIMA/[id number] - Microbiology Neisseria gonorrhoeae DNA probe NOT [...] 5.0-8.5 Encounters Code Encounter Date Provider Facility CPT-18378 Level 3 Est. Patient 10:21:41 CUSTOM MOTORCYCLE PAINTER Arie mcqueen MD [facility] CPT-52905 Level 3 Est. Patient 11:35:15 CUSTOM MOTORCYCLE PAINTER Arie mcqueen MD [facility] CPT-23440 Level 3 Est. Patient 15:40:28 CDT Steve SOFTWARE ENGINEER INTERN [facility] CPT-54031 Level 3 Est. Patient 16:40:36 CDT Arie mcqueen MD [facility] CPT-64347 Level 4 Est. Patient 15:29:22 CUSTOM MOTORCYCLE PAINTER Arie mcqueen MD [facility]-58708 Level 3 Est. Patient 15:18:16 CUSTOM MOTORCYCLE PAINTER Jono black [facility] CPT-46497 Level 4 Est. Patient 12:08:40 CUSTOM MOTORCYCLE PAINTER Steve SOFTWARE ENGINEER INTERN [facility] CPT-06493 Level 3 Est. Patient 09:24:42 CDT Bladeon [facility] CPT-31680 Level 3 Est. Patient 09:12:56 CDT Arie mcqueen MD [facility] CPT-26340 Level 3 Est. Patient 16:40:54 CDT Jose Zhong MD [facility] CPT-87302 Level 2 Est. Patient 13:01:13 CDT Steve SOFTWARE ENGINEER INTERN [facility] CPT-60611 Level 3 Est. Patient 11:55:30 CUSTOM MOTORCYCLE PAINTER Jono black [facility] CPT-25069 Level 3 Est. Patient 09:52:36 CUSTOM MOTORCYCLE PAINTER Steve SOFTWARE ENGINEER INTERN [facility] CPT-76519 Level 3 Est. Patient 16:25:33 CUSTOM MOTORCYCLE PAINTER Rich Rosales MD [facility] CPT-39784 Level 3 Est. Patient 20:33:55 CDT Arie mcqueen MD [facility] CPT-39758 Level 3 Est. Patient 14:18:20 CDT Rich Rosales MD [facility] CPT-91248 Level 4 Est. Patient 09:34:31 CDT Arie mcqueen MD [facility] CPT-31384 Level 3 Est. Patient 09:08:55 CUSTOM MOTORCYCLE PAINTER Liliana vincent MD PhD [facility] CPT-69988 Level 3 Est. Patient 16:44:07 CUSTOM MOTORCYCLE PAINTER Arie mcqueen MD [facility] CPT-13195 Level 3 Est. Patient 10:44:27 CDT Arie mcqueen MD [facility] CPT-90396 Level 3 Est. Patient 08:55:41 CDT Jose Zhong MD [facility] CPT-55171 Level 3 Est. Patient 18:37:31 CDT Liliana vincent MD PhD [facility] CPT-81607 Level 3 Est. Patient 14:28:23 CDT Abelardo HERNANDEZ [facility] CPT-50856 Level 3 Est. Patient 15:18:13 CUSTOM MOTORCYCLE PAINTER Arie mcqueen MD [facility] CPT-40553 Level 3 Est. Patient 10:11:29 CUSTOM MOTORCYCLE PAINTER Arie mcqueen MD [facility] CPT-42983 Level 3 Est. Patient 10:55:57 CUSTOM MOTORCYCLE PAINTER Jono black DO [facility] CPT-66976 Level 3 Est. Patient 17:29:05 CDT Arie mcqueen MD [facility] Procedures Code Procedure Name Date Entry Date Standard Desc ription CPT-99284 Nexplanon Removal 15:40:28 CDT CPT-23519 Sono transvag pelvis non OB uterus ovari es cervix - XRAY USE ONLY 08:58:14 CUSTOM MOTORCYCLE PAINTER CPT-64650 UA w micro - LAB USE ONLY 16:04:56 CUSTOM MOTORCYCLE PAINTER 2015 CPT-62243 Wet Prep/GEN - LAB USE ONLY 16:04:56 CUSTOM MOTORCYCLE PAINTER 20 08/10/29 CPT-20208 First Vx - Ix admin via ID I M or jet injects without counseling by physician 16:57:10 CDT CPT-84702 Fluzone Preservative Free Intramuscular Suspension 16:57:10 CDT CPT-J0696 Rocephin 1000 mg (Ceftriaxone) 11:49:23 CDT CPT-J1040 Depo Medrol 80 mg (Methyl Prednisolone A cetate) 11:49:23 CDT CPT-J1100 Decadron 8mg (Dexamethasone) 11:49:23 CDT 2 CPT-69581 Abx/Therapy Injection 11:49:23 CDT CPT-32162 Abx/Therapy Injection 11:49:23 CDT CPT-99879 Abd compl w upright 09:07:26 CUSTOM MOTORCYCLE PAINTER CPT-08214 Ear Wash 16:12:47 CUSTOM MOTORCYCLE PAINTER CPT-OV Office Visit 11:12:01 CDT CPT-OV Office Visit 15:30:23 CDT CPT-87545 Sono pelvis non OB uterus ovaries cervix 15:50:44 CDT CPT-88862 Hand comp min 3V 16:42:32 CDT CPT-05315 Abd compl w upright 12:17:01 CDT CPT-12357 Nexplanon Placement 15:07:39 CUSTOM MOTORCYCLE PAINTER CPT-42522 Removal of IUD 15:07:39 CUSTOM MOTORCYCLE PAINTER CPT-40658 TB Tubersol 12:09:32 CDT CPT-94939 TB Tubersol 13:55:43 CDT
--- OUTSIDE RECORDS SUMMARY | 2020-03-03 08:19 | XMS REPORT | Clinical Summary ---
Author Author Admin, Diamante Marcelo Organization [employer] Address Unknown Phone Unavailable Allergies, Adverse Reactions, [...] site Abdominal pain 789.00 Active Brii Larson BUYING AGENT Abdominal pain, unspecified site Diarrhea 787.91 Resolved [...] as infective Preventive health care V70.0 Active Nialm Chapin a Routine general medical examination at [...] cute pharyngitis Nausea 787.02 Active Brii Larson BUYING AGENT Nausea alone URI 465.9 Active Jono Gagnon [...] Anxiety with depression 300.4 Active Glenn Larson BUYING AGENT Dysthymic disorder URI 465.9 Active Jono Gagnon [...] MG TAB Take 1 tab BID NAPROXEN 114366372 15 Active Brii Larson APRN Active NEXPLANON IMPL Left arm subcutaneously ETONOGES TREL IMPL 00795383615 Active Brii Larson APRN Active CEFDINIR 300 MG CAPS 1 po BID x 10 days CEFDINI R 67373719616 No Longer Active Brii Larson APRN Active PREDNISONE 20 MG TAB 1 tablet daily for airway inflammation 2015 PREDNISONE 36563881306 No Longer Active Brii Larson APRN Active CEFDINIR 300 MG CAPS 1 po BID x 10 days CEFDINI R 00366468937 No Longer Active Jono W Kalin DO Active FLONASE 50 MCG/ACT SUSP 1 spray each nostril twice d aily for allergies and runny nose until gone FLUTICASONE PROPIONATE No Longe r Active Jono Gagnon DO Active ALPRAZOLAM 0.25 MG TAB 1 tablet by mouth every 8 hours as ne eded for stress ALPRAZOLAM 62005912144 No Longer Active Jono Gagnon DO Active ZOLOFT 50 MG TAB 1 tablet by mouth daily SERTRA LINE HCL 39957339910 Active Arie Casper MD Active LOMOTIL 2.5-0.025 MG TAB 1 tab po four times a day as needed for diarrhea DIPHENOXYLATE-ATROPINE 45039960990 Active Brii Larson APRN Active ZITHROMAX Z-EMIL 250 MG TABS 2 today, then 1 daily for 4 days 201 03/31/18 AZITHROMYCIN 13786091665 No Longer Active Arie Casper MD Active PROTONIX 40 MG ORAL TBEC 1 po q a.m. PANTOPRAZO LE SODIUM 87275316599 Active Arie Casper MD Active PREDNISONE 20 MG TAB 2 tabs daily for 3 days, 1 t ab daily for 3 days, 1/2 tab daily for 2 days PREDNISONE 19531069824 No Longer Active Brii Larson APRN Active PREDNISONE 20 MG TAB 1 tablet twice daily for 2 d ays, then 1 tablet once daily for 2 days PREDNISONE 32891166579 No Longer Active Brii Larson APRN Active PROMETHAZINE HCL 12.5 MG TABS 1 tablet by mouth every 6 hours as needed for nausea/vomiting PROMETHAZINE HCL 56795918183 No Longe r Active Jono Gagnon DO Active CITRATE OF MAGNESIA ORAL SOLN 1 bottle today for constipation 20 07/10/15 MAGNESIUM CITRATE 10821632779 No Longer Active Jono Gagnon DO Active ZOFRAN 4 MG ORAL TABS 1 TAB PO Q 6 HRS PRN NAUSEA 2014 ONDANSETRON HCL 74866740940 No Longer Active Brii Larson APRN A ctive LOMOTIL 2.5-0.025 MG TAB 1 to 2 four times a day as needed f or diarrhea DIPHENOXYLATE-ATROPINE 08530902931 No Longer Active January Larson APRN Active AMOXICILLIN 500 MG TABS 2 tabs twice a day for 10 days AMOXICILLIN 78951056526 No Longer Active Brii Larson APRN Acti ve CYCLOBENZAPRINE HCL 10 MG TABS 1/2 - 1 tablet by mouth three times daily as needed for muscle spasm/pain CYCLOBENZAPRINE HCL 85301274159 No Longer Active Arie Casper MD Active LOMOTIL 2.5-0.025 MG TABS 1 to 2 four times a day as needed for diarrhea DIPHENOXYLATE-ATROPINE 88632532825 No Longer Active D freddy Casper MD Active MACROBID 100 MG CAP 1 cap by mouth twice daily NITROFURANTOIN MONOHYD MACRO 01862591982 No Longer Active Arie Casper MD Active ZYRTEC ALLERGY 10 MG CAPS 1 po qd CETIRIZINE HCL 02291144907 No Longer Active Arie Casper MD Active AZITHROMYCIN 250 MG TABS 2 po qd x 1 day, then 1 po qd x 4 days AZITHROMYCIN 49370918975 No Longer Active Jillina Frazelanette CABRERA Active PREDNISONE 20 MG TAB 2 tabs daily for 3 days, 1 t ab daily for 3 days, 1/2 tab daily for 2 days PREDNISONE 53295832433 No Longer Active Jillina Frazell RICK Active PROMETHAZINE HCL 25 MG TABS 1 four times a day as needed for vomiting PROMETHAZINE HCL 22756512902 No Longer Active Myrna Roberto MD Active BACTRIM DS 800-160 MG TABS 1 twice a day SULFAMETHOXAZOLE-TRIMETHOPRIM 55677889211 No Longer Active Myrna Roberto MD Active VICKS DAYQUIL SEVERE COLD/FLU TABS 1 tab every 6 hours prn 12/10 [id number] TABS 10704724001 No Longer Active Myrna leigh MD Active GUAIFENESIN-CODEINE 100-10 MG/5ML ORAL SYRP 2 tsp every 6 hours prn GUAIFENESIN-CODEINE 37926303173 No Longer Active Myrna Roberto MD Active NAPROXEN 500 MG TAB one tab PO BID NAPROXEN 332 73483285 No Longer Active Myrna Roberto MD Active AUGMENTIN 875-125 MG TAB 1 tab by mouth twice daily with food 20 08/12/16 AMOXICILLIN-POT CLAVULANATE 37891638385 No Longer Active Liliana Estrada MD PhD Active AMOXICILLIN 500 MG CAP 1 tab by mouth 3 times daily 08/12/16 AMOXICILLIN 35990127359 No Longer Active Liliana Estrada MD PhD Acti ve TESSALON PERLES 100 MG CAP 1 tablet by mouth 3 times daily 11/01 BENZONATATE 46546330274 No Longer Active Liliana Estrada MD PhD Active FLAGYL 500 MG TAB 1 tablet by mouth two times daily 07/11/29 METRONIDAZOLE 29481368045 No Longer Active Nilam Weber Active ZITHROMAX 250 MG TAB 2 po today, then 1 po q days 2-5 AZITHROMYCIN 06895392329 No Longer Active Arie Casper MD Acti ve VITAMINS 0.8 MG TABS take 1 tab po qday 08/08 [id number] 11101174344 No Longer Active Arie Casper MD Active IBUPROFEN 800 MG TABS take one po Q 8 hours IBU PROFEN 18553525364 No Longer Active Arie Casper MD Active [facility] TUSSIN COUGH/COLD CF 5-10-100 MG/5ML LIQD 2 teaspoons ev eliud 4 hours [id number]-OT-UP 15353493972 No Longer Active Blaine Casper MD Active COMTREX COLD/COUGH DAY/NITE MS 5-2-10-325 MG MISC 2 caps deja ry 4 hours HYPHGRILA-[id number]-IK-APAP 84926217651 No Longer Active Da aleksandra Casper MD Active CHLORASEPTIC MAX SORE THROAT 15-10 MG LOZG 1 every 2 hours prn 2 BENZOCAINE-MENTHOL 55005666085 No Longer Active Arie Marcelo Active PREDNISONE 20 MG TAB 2 tabs daily for 3 days, 1 t ab daily for 3 days, 1/2 tab daily for 2 days PREDNISONE 42595615382 No Longer Active Jose Zhong MD Active AZITHROMYCIN 250 MG TABS 2 po qd x 1 day, then 1 po qd x 4 days AZITHROMYCIN 85163876008 No Longer Active Jose Zhong MD Active ZOFRAN ODT 4 MG TBDP 1 po q6hr PRN Nausea ONDAN SETRON 94681437996 No Longer Active Rich Rosales MD Active ZOFRAN 4 MG TABS 1 tablet every 4 hours ONDANSE JERRELL HCL 96647394789 No Longer Active Rich Rosales MD Active MUCINEX 600 MG [id number] Take 1-2 tablets every 12 hours GUAIFENESIN 48046168848 No Longer Active Rich Rosales MD Activ e BACTRIM 400-80 MG TABS take one po BID SULFAMETHOXAZOLE-TRIMETHOPRIM 49544858702 No Longer Active Abelardo HERNANDEZ Active AZITHROMYCIN 500 MG TABS 1 PO q day x 6 days AZ ITHROMYCIN 99004751640 No Longer Active Tin HERNANDEZ Active ZITHROMAX 250 MG TAB 2 po today, then 1 po q days 2-5 AZITHROMYCIN 88573269414 No Longer Active Arie Casper MD Acti ve ZITHROMAX 250 MG TAB 2 po today, then 1 po q days 2-5 AZITHROMYCIN 61795287902 No Longer Active Arie Casper MD Acti ve AMOXICILLIN 500 MG CAP 1 tab by mouth 3 times daily 20 09/23/20 AMOXICILLIN 09782931662 No Longer Active Arie Casper MD Acti ve BACTRIM DS 800-160 MG TAB 1 tab by mouth twice daily 2 TRIMETHOPRIM-SULFAMETHOXAZOLE 90787154091 No Longer Active Arie Casper MD Active AMOXICILLIN 500 MG TABS take 1 tab po TID AMOXI CILLIN 16590983513 No Longer Active Arie Casper MD Active BACTRIM DS 800-160 MG TAB 1 tab by mouth twice daily 2 BACTRIM DS 800-160 MG TAB 443863 TRIMETHOPRIM-SULFAMETHOXAZOLE Inac tive MUCINEX 600 MG [id number] Take 1-2 tablets every 12 hours MUCINEX 600 MG [id number] GUAIFENESIN Inactive ZOFRAN 4 MG TABS 1 tablet every 4 hours ZOFRAN 4 MG TABS 095598 ONDANSETRON HCL Inactive ZOFRAN ODT 4 MG TBDP 1 po q6hr PRN Nausea ZOFRAN ODT 4 MG TBDP 658464 ONDANSETRON Inactive CHLORASEPTIC MAX SORE THROAT 15-10 MG LOZG 1 every 2 hours prn 2 CHLORASEPTIC MAX SORE THROAT 15-10 MG LOZG BENZO ARINA-MENTHOL Inactive COMTREX COLD/COUGH DAY/NITE MS 5-2-10-325 MG MISC 2 caps deja ry 4 hours COMTREX COLD/COUGH DAY/NITE MS 5-2-10-325 MG MIS C [id number] Inactive [facility] TUSSIN COUGH/COLD CF 5-10-100 MG/5ML LIQD 2 teaspoons ev eliud 4 hours [facility] TUSSIN COUGH/COLD CF 5-10-100 MG/5ML LIQD [id number] Inactive IBUPROFEN 800 MG TABS take one po Q 8 hours IBUPROFEN 800 MG TABS IBUPROFEN Inactive VITAMINS 0.8 MG TABS take 1 tab po qday 08/08 VITAMINS 0.8 MG TABS [id number] Inactive TESSALON PERLES 100 MG CAP 1 tablet by mouth 3 times daily 11/01 TESSALON PERLES 100 MG CAP 308269 BENZONATATE Inact zaid AMOXICILLIN 500 MG CAP 1 tab by mouth 3 times daily 08/12/16 AMOXICILLIN 500 MG CAP 212550 AMOXICILLIN Inactive GUAIFENESIN-CODEINE 100-10 MG/5ML ORAL SYRP 2 tsp every 6 hours prn GUAIFENESIN-CODEINE 100-10 MG/5ML ORAL SYRP 787437 GUAIFENESIN-CODEINE Inactive VICKS DAYQUIL SEVERE COLD/FLU TABS 1 tab every 6 hours prn 12/10 VICKS DAYQUIL SEVERE COLD/FLU TABS PHENYLEPHRINE -DM-GG-APAP TABS Inactive BACTRIM DS 800-160 MG TABS 1 twice a day BACTRIM DS 800- 160 MG TABS 290040 SULFAMETHOXAZOLE-TRIMETHOPRIM Inactive PROMETHAZINE HCL 25 MG TABS 1 four times a day as needed for vomiting PROMETHAZINE HCL 25 MG TABS 988029 PROMETHAZINE HCL Inactive ZYRTEC ALLERGY 10 MG CAPS 1 po qd ZY RTEC ALLERGY 10 MG CAPS CETIRIZINE HCL Inactive MACROBID 100 MG CAP 1 cap by mouth twice daily MACROBID 100 MG CAP 9497629 NITROFURANTOIN MONOHYD MACRO Inactive LOMOTIL 2.5-0.025 MG TABS 1 to 2 four times a day as needed for diarrhea LOMOTIL 2.5-0.025 MG TABS 2680893 DIPHENOXYLATE-A TROPINE Inactive CYCLOBENZAPRINE HCL 10 MG TABS 1/2 - 1 tablet by mouth three times daily as needed for muscle spasm/pain CYCLOBENZAP RINE HCL 10 MG TABS 948657 CYCLOBENZAPRINE HCL Inactive AMOXICILLIN 500 MG TABS 2 tabs twice a day for 10 days AMOXICILLIN 500 MG TABS 104127 AMOXICILLIN Inactive LOMOTIL 2.5-0.025 MG TAB 1 to 2 four times a day as needed f or diarrhea LOMOTIL 2.5-0.025 MG TAB 5743029 DIPHENOXYLATE-AT ROPINE Inactive ZOFRAN 4 MG ORAL TABS 1 TAB PO Q 6 HRS PRN NAUSEA 2014 ZOFRAN 4 MG ORAL TABS 733083 ONDANSETRON HCL Inactive CITRATE OF MAGNESIA ORAL SOLN 1 bottle today for constipation 20 07/10/15 CITRATE OF MAGNESIA ORAL SOLN 4683336 MAGNESIUM CITRATE Inactive PROMETHAZINE HCL 12.5 MG TABS 1 tablet by mouth every 6 hours as needed for nausea/vomiting PROMETHAZINE HCL 12.5 MG TABS 395052 PROMETHAZINE HCL Inactive PREDNISONE 20 MG TAB 1 tablet twice daily for 2 d ays, then 1 tablet once daily for 2 days PREDNISONE 20 MG TAB 407953 PREDNISONE Inac tive ALPRAZOLAM 0.25 MG TAB 1 tablet by mouth every 8 hours as ne eded for stress ALPRAZOLAM 0.25 MG TAB 212930 ALPRAZOLAM Inact zaid FLONASE 50 MCG/ACT SUSP 1 spray each nostril twice d aily for allergies and runny nose until gone FLONASE 50 MCG/ACT SUSP F LUTICASONE PROPIONATE Inactive PREDNISONE 20 MG TAB 1 tablet daily for airway inflammation 2015 PREDNISONE 20 MG TAB 239407 PREDNISONE Inactive AMOXICILLIN 500 MG TABS take 1 tab po TID AMOXICILLIN 500 MG TABS 479508 AMOXICILLIN Inactive AMOXICILLIN 500 MG CAP 1 tab by mouth 3 times daily 09/23/20 AMOXICILLIN 500 MG CAP 246745 AMOXICILLIN Inactive ZITHROMAX 250 MG TAB 2 po today, then 1 po q days 2-5 ZITHROMAX 250 MG TAB 9096347 AZITHROMYCIN Inactive ZITHROMAX 250 MG TAB 2 po today, then 1 po q days 2-5 ZITHROMAX 250 MG TAB 8587140 AZITHROMYCIN Inactive AZITHROMYCIN 500 MG TABS 1 PO q day x 6 days 3 AZITHROMYCIN 500 MG TABS 6885804 AZITHROMYCIN Inactive BACTRIM 400-80 MG TABS take one po BID BA CTRIM 400-80 MG TABS 516636 SULFAMETHOXAZOLE-TRIMETHOPRIM Inactive AZITHROMYCIN 250 MG TABS 2 po qd x 1 day, then 1 po qd x 4 days AZITHROMYCIN 250 MG TABS 4837974 AZITHROMYCIN Inactiv e PREDNISONE 20 MG TAB 2 tabs daily for 3 days, 1 t ab daily for 3 days, 1/2 tab daily for 2 days PREDNISONE 20 MG TAB 227507 PREDNISON E Inactive ZITHROMAX 250 MG TAB 2 po today, then 1 po q days 2-5 ZITHROMAX 250 MG TAB 2022546 AZITHROMYCIN Inactive FLAGYL 500 MG TAB 1 tablet by mouth two times daily 07/11/29 FLAGYL 500 MG TAB 501917 METRONIDAZOLE Inactive AUGMENTIN 875-125 MG TAB 1 tab by mouth twice daily with food 20 08/12/16 AUGMENTIN 875-125 MG TAB 072320 AMOXICILLIN-POT CLAVULA ANGELO Inactive NAPROXEN 500 MG TAB one tab PO BID NAPROXEN 500 MG TAB 633888 NAPROXEN Inactive PREDNISONE 20 MG TAB 2 tabs daily for 3 days, 1 t ab daily for 3 days, 1/2 tab daily for 2 days PREDNISONE 20 MG TAB 290939 PREDNISON E Inactive AZITHROMYCIN 250 MG TABS 2 po qd x 1 day, then 1 po qd x 4 days AZITHROMYCIN 250 MG TABS 4416931 AZITHROMYCIN Inactiv e PREDNISONE 20 MG TAB 2 tabs daily for 3 days, 1 t ab daily for 3 days, 1/2 tab daily for 2 days PREDNISONE 20 MG TAB 272044 PREDNISON E Inactive ZITHROMAX Z-EMIL 250 MG TABS 2 today, then 1 daily for 4 days 201 03/31/18 ZITHROMAX Z-EMIL 250 MG TABS 0890931 AZITHROMYCIN Inac tive CEFDINIR 300 MG CAPS [...] Panel - Chemistry sodium, serum 136 mmol/L 122-894 8516/04/26 carbon dioxide, venous blood 29.9 mmol/L 21.0-32 [...] Negative Encounters Code Encounter Date Provider Facility CPT-78542 Level 3 Est. Patient 15:18:16 [employer]TING [employer]ACH[employer] Jono black [facility] CPT-88153 Level 4 Est. Patient 12:08:40 C[employer]TING MACH[employer] [facility] [facility] [place] CPT-12146 Level 3 Est. Patient 09:24:42 CDT [facility] [place] [facility] [place] CPT-43685 Level 3 Est. Patient 09:12:56 CDT Arie mcqueen MD [facility] CPT-52648 Level 3 Est. Patient 16:40:54 CDT Jose Zhong MD [facility] CPT-17028 Level 2 Est. Patient 13:01:13 CDT [facility] [place] [facility] [place] CPT-51893 Level 3 Est. Patient 11:55:30 C[employer]TING [employer]ACH[employer] Jnoo black [facility] CPT-23136 Level 3 Est. 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 Patient 16:25:33 C[employer]TING MACH[employer] Rich Rosales MD [facility]-87452 Level 3 Est. Patient 20:33:55 CDT Arie mcqueen MD [facility]-28442 Level 3 Est. Patient 14:18:20 CDT Rich Rosales MD [facility]-85933 Level 4 Est. Patient 09:34:31 CDT Arie mcqueen MD [facility]-49344 Level 3 Est. Patient 09:08:55 C[employer]TING MACHINE [employer]IVE Liliana vincent MD [facility]-66889 Level 3 Est. 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 Patient 10:44:27 CDT Arie mcqueen MD [facility]-45145 Level 3 Est. Patient 08:55:41 CDT Jose Zhong MD [facility]-34341 Level 3 Est. Patient 18:37:31 CDT Liliana vincent MD [facility]-55304 Level 3 Est. Patient 14:28:23 CDT Abelardo HERNANDEZ [facility]-01440 Level 3 Est. Patient 15:18:13 CUTTING MACHINE [employer]ENDER [employer]ORATIVE Arie mcqueen MD [facility]-42622 Level 3 Est. Patient 10:11:29 CUTTING MACHINE [employer]ENDER [employer]ORATIVE Arie mcqueen MD [facility]-04004 Level 3 Est. Patient 10:55:57 C[employer]TING MACHINE [employer]ORATIVE Jono black DO [facility]-46672 Level 3 Est. Patient 17:29:05 CDT Arie mcqueen MD [facility] Procedures Code Procedure Name Date Entry Date Standard Desc ription CPT-50870 Sono transvag pelvis non OB uterus ovari es cervix - XRAY USE ONLY 08:58:14 C[employer]TING [employer] CPT-23284 UA w micro - LAB USE ONLY 16:04:56 C[employer]TING MACHINE [employer]ENDER [employer]ORATIVE 2015 CPT-02994 Wet Prep/GEN - LAB USE ONLY 16:04:56 C[employer]TING MACHINE [employer]ENDER [employer]ORATIVE 20 08/10/29 CPT-39439 First Vx - Ix admin via ID I M or jet injects without counseling by physician 16:57:10 CDT CPT-56331 Fluzone Preservative Free Intramuscular Suspension 16:57:10 CDT CPT-J0696 Rocephin 1000 mg (Ceftriaxone) 11:49:23 CDT CPT-J1040 Depo Medrol 80 mg (Methyl Prednisolone A cetate) 11:49:23 CDT CPT-J1100 Decadron 8mg (Dexamethasone) 11:49:23 CDT 2 CPT-11756 Abx/Therapy Injection 11:49:23 CDT CPT-45575 Abx/Therapy Injection 11:49:23 CDT CPT-89758 Abd compl w upright 09:07:26 [employer]TING [employer] CPT-33055 Ear Wash 16:12:47 C[employer]TING [employer] CPT-OV Office Visit 11:12:01 CDT CPT-OV Office Visit 15:30:23 CDT CPT-40198 Sono pelvis non OB uterus ovaries cervix 15:50:44 CDT CPT-79740 Hand comp min 3V 16:42:32 CDT CPT-94955 Abd compl w upright 12:17:01 CDT CPT-61516 Nexplanon Placement 15:07:39 [employer]TING [employer] CPT-71777 Removal of IUD 15:07:39 C[employer]TING [employer] CPT-87879 TB Tubersol 12:09:32 CDT CPT-49546 TB Tubersol 13:55:43 CDT
--- OUTSIDE RECORDS SUMMARY | 2020-03-03 08:20 | XMS REPORT | Clinical Summary ---
[...] cute pharyngitis Nausea 787.02 Active Brii Larson PERIOPERATIVE NURSE Nausea alone URI 465.9 Active Jono Gagnon [...] Anxiety with depression 300.4 Active Glenn Larson PERIOPERATIVE NURSE Dysthymic disorder URI 465.9 Active Jono Gagnon [...] 1/2 tab daily for 2 days PREDNISONE 30145419907 Active Arie Casper MD Active TUSSIONEX PENNKINETIC ER 10-8 MG/5ML LQCR 5ml po q12hr PRN Cough 20 07/02/19 HYDROCOD POLST-CHLORPHEN POLST 16592708697 Active Arie Casper MD Active CETIRIZINE HCL 10 MG ORAL TABS 1 po qd PRN Allergies CETIRIZINE HCL 12778074046 Active Arie Casper MD Active NEXPLANON IMPL right arm subcutaneously ETONOGE STREL IMPL 07508443465 Active Arie Casper MD Active LOMOTIL 2.5-0.025 MG TAB 1 tab po four times a day as needed for diarrhea DIPHENOXYLATE-ATROPINE 10327765633 No Longer Active Fozia Casper MD Active ZOLOFT 50 MG TAB 1 tablet by mouth daily SERTRA LINE HCL 08778956761 No Longer Active Arie Casper MD Active NAPROXEN 500 MG TAB Take 1 tab BID NAPROXEN 332 46638316 No Longer Active Arie Casper MD Active CEFDINIR 300 MG CAPS 1 po BID x 10 days CEFDINI R 36472502878 No Longer Active Brii Larson APRN Active PREDNISONE 20 MG TAB 1 tablet daily for airway inflammation 2015 PREDNISONE 85897124322 No Longer Active Brii Larson APRN Active CEFDINIR 300 MG CAPS 1 po BID x 10 days CEFDINI R 40911522842 No Longer Active Jono Gagnon DO Active FLONASE 50 MCG/ACT SUSP 1 spray each nostril twice d aily for allergies and runny nose until gone FLUTICASONE PROPIONATE No Longe r Active Jono Gagnon DO Active ALPRAZOLAM 0.25 MG TAB 1 tablet by mouth every 8 hours as ne eded for stress ALPRAZOLAM 89022232640 No Longer Active Jono Gagnon DO Active ZITHROMAX Z-EMIL 250 MG TABS 2 today, then 1 daily for 4 days 201 03/31/18 AZITHROMYCIN 53163897745 No Longer Active Arie Casper MD Active PROTONIX 40 MG ORAL TBEC 1 po q a.m. PANTOPRAZO LE SODIUM 00582831037 Active Arie Casper MD Active PREDNISONE 20 MG TAB 2 tabs daily for 3 days, 1 t ab daily for 3 days, 1/2 tab daily for 2 days PREDNISONE 69876816565 No Longer Active Brii Larson APRN Active PREDNISONE 20 MG TAB 1 tablet twice daily for 2 d ays, then 1 tablet once daily for 2 days PREDNISONE 30173095905 No Longer Active Brii Larson APRN Active PROMETHAZINE HCL 12.5 MG TABS 1 tablet by mouth every 6 hours as needed for nausea/vomiting PROMETHAZINE HCL 47120283021 No Longe r Active Jono Gagnon DO Active CITRATE OF MAGNESIA ORAL SOLN 1 bottle today for constipation 20 07/10/15 MAGNESIUM CITRATE 79326308400 No Longer Active Jono Gagnon DO Active ZOFRAN 4 MG ORAL TABS 1 TAB PO Q 6 HRS PRN NAUSEA 2014 ONDANSETRON HCL 06984379573 No Longer Active Brii Larson APRN A ctive LOMOTIL 2.5-0.025 MG TAB 1 to 2 four times a day as needed f or diarrhea DIPHENOXYLATE-ATROPINE 49427275652 No Longer Active January Larson APRN Active AMOXICILLIN 500 MG TABS 2 tabs twice a day for 10 days AMOXICILLIN 63428097952 No Longer Active Brii Larson APRN Acti ve CYCLOBENZAPRINE HCL 10 MG TABS 1/2 - 1 tablet by mouth three times daily as needed for muscle spasm/pain CYCLOBENZAPRINE HCL 98398889264 No Longer Active Arie Casper MD Active LOMOTIL 2.5-0.025 MG TABS 1 to 2 four times a day as needed for diarrhea DIPHENOXYLATE-ATROPINE 75165029964 No Longer Active Fozia Casper MD Active MACROBID 100 MG CAP 1 cap by mouth twice daily NITROFURANTOIN MONOHYD MACRO 58278931784 No Longer Active Arie Casper MD Active ZYRTEC ALLERGY 10 MG CAPS 1 po qd CETIRIZINE HCL 77761047097 No Longer Active Arie Casper MD Active AZITHROMYCIN 250 MG TABS 2 po qd x 1 day, then 1 po qd x 4 days AZITHROMYCIN 31070995602 No Longer Active Jillina Frazell PERIOPERATIVE NURSE Active PREDNISONE 20 MG TAB 2 tabs daily for 3 days, 1 t ab daily for 3 days, 1/2 tab daily for 2 days PREDNISONE 48847094459 No Longer Active Jillina Frazell PERIOPERATIVE NURSE Active PROMETHAZINE HCL 25 MG TABS 1 four times a day as needed for vomiting PROMETHAZINE HCL 30369582134 No Longer Active Myrna Roberto MD Active BACTRIM DS 800-160 MG TABS 1 twice a day SULFAMETHOXAZOLE-TRIMETHOPRIM 63420368816 No Longer Active Myrna Roberto MD Active VICKS DAYQUIL SEVERE COLD/FLU TABS 1 tab every 6 hours prn 12/10 [id number] TABS 27878196098 No Longer Active Myrna leigh MD Active GUAIFENESIN-CODEINE 100-10 MG/5ML ORAL SYRP 2 tsp every 6 hours prn GUAIFENESIN-CODEINE 30092292975 No Longer Active Myrna Roberto MD Active NAPROXEN 500 MG TAB one tab PO BID NAPROXEN 332 89908587 No Longer Active Myrna Roberto MD Active AUGMENTIN 875-125 MG TAB 1 tab by mouth twice daily with food 08/12/16 AMOXICILLIN-POT CLAVULANATE 31956012960 No Longer Active Liliana Estrada MD PhD Active AMOXICILLIN 500 MG CAP 1 tab by mouth 3 times daily 20 08/12/16 AMOXICILLIN 37662141863 No Longer Active Liliana Estrada MD PhD Acti ve TESSALON PERLES 100 MG CAP 1 tablet by mouth 3 times daily 11/01 BENZONATATE 92249211923 No Longer Active Liliana Estrada MD PhD Active FLAGYL 500 MG TAB 1 tablet by mouth two times daily 07/11/29 METRONIDAZOLE 52890143567 No Longer Active Nilam Weber Active ZITHROMAX 250 MG TAB 2 po today, then 1 po q days 2-5 AZITHROMYCIN 67074303142 No Longer Active Arie Casper MD Acti ve VITAMINS 0.8 MG TABS take 1 tab po qday 08/08 [id number] 77906839120 No Longer Active Arie Casper MD Active IBUPROFEN 800 MG TABS take one po Q 8 hours IBU PROFEN 33679929467 No Longer Active Arie Casper MD Active [facility] TUSSIN COUGH/COLD CF 5-10-100 MG/5ML LIQD 2 teaspoons ev eliud 4 hours [id number] 57536537739 No Longer Active Blaine Casper MD Active COMTREX COLD/COUGH DAY/NITE MS 5-2-10-325 MG MISC 2 caps deja ry 4 hours [id number] 38743247553 No Longer Active Da aleksandra Casper MD Active CHLORASEPTIC MAX SORE THROAT 15-10 MG LOZG 1 every 2 hours prn 2 BENZOCAINE-MENTHOL 70632069627 No Longer Active Arie Marcelo Active PREDNISONE 20 MG TAB 2 tabs daily for 3 days, 1 t ab daily for 3 days, 1/2 tab daily for 2 days PREDNISONE 89189389634 No Longer Active Jose Zhong MD Active AZITHROMYCIN 250 MG TABS 2 po qd x 1 day, then 1 po qd x 4 days AZITHROMYCIN 44509576784 No Longer Active Jose Zhong MD Active ZOFRAN ODT 4 MG TBDP 1 po q6hr PRN Nausea ONDAN SETRON 01190257534 No Longer Active Rich Rosales MD Active ZOFRAN 4 MG TABS 1 tablet every 4 hours ONDANSE JERRELL HCL 21639804284 No Longer Active Rich Rosales MD Active MUCINEX 600 MG [id number] Take 1-2 tablets every 12 hours GUAIFENESIN 30712802024 No Longer Active Rich Rosales MD Activ e BACTRIM 400-80 MG TABS take one po BID SULFAMETHOXAZOLE-TRIMETHOPRIM 14368964011 No Longer Active Abelardo HERNANDEZ Active AZITHROMYCIN 500 MG TABS 1 PO q day x 6 days AZ ITHROMYCIN 07469560579 No Longer Active Tin HERNANDEZ Active ZITHROMAX 250 MG TAB 2 po today, then 1 po q days 2-5 AZITHROMYCIN 02341941954 No Longer Active Arie Casper MD Acti ve ZITHROMAX 250 MG TAB 2 po today, then 1 po q days 2-5 AZITHROMYCIN 00567332816 No Longer Active Arie Casper MD Acti ve AMOXICILLIN 500 MG CAP 1 tab by mouth 3 times daily 20 09/23/20 AMOXICILLIN 90036685932 No Longer Active Arie Casper MD Acti ve BACTRIM DS 800-160 MG TAB 1 tab by mouth twice daily 2 TRIMETHOPRIM-SULFAMETHOXAZOLE 00446160618 No Longer Active Arie Casper MD Active AMOXICILLIN 500 MG TABS take 1 tab po TID AMOXI CILLIN 29361595772 No Longer Active Arie Casper MD Active BACTRIM DS 800-160 MG TAB 1 tab by mouth twice daily 2 BACTRIM DS 800-160 MG TAB 632043 TRIMETHOPRIM-SULFAMETHOXAZOLE Inac tive MUCINEX 600 MG [id number] Take 1-2 tablets every 12 hours MUCINEX 600 MG [id number] GUAIFENESIN Inactive ZOFRAN 4 MG TABS 1 tablet every 4 hours ZOFRAN 4 MG TABS 630643 ONDANSETRON HCL Inactive ZOFRAN ODT 4 MG TBDP 1 po q6hr PRN Nausea ZOFRAN ODT 4 MG TBDP 665092 ONDANSETRON Inactive CHLORASEPTIC MAX SORE THROAT 15-10 MG LOZG 1 every 2 hours prn 2 /04/30 CHLORASEPTIC MAX SORE THROAT 15-10 MG LOZG BENZO ARINA-MENTHOL Inactive COMTREX COLD/COUGH DAY/NITE MS 5-2-10-325 MG MISC 2 caps deja ry 4 hours COMTREX COLD/COUGH DAY/NITE MS 5-2-10-325 MG MIS C [id number] Inactive [facility] TUSSIN COUGH/COLD CF 5-10-100 MG/5ML LIQD 2 teaspoons ev eliud 4 hours [facility] TUSSIN COUGH/COLD CF 5-10-100 MG/5ML LIQD [id number] Inactive IBUPROFEN 800 MG TABS take one po Q 8 hours IBUPROFEN 800 MG TABS IBUPROFEN Inactive VITAMINS 0.8 MG TABS take 1 tab po qday 08/08 VITAMINS 0.8 MG TABS [id number] Inactive TESSALON PERLES 100 MG CAP 1 tablet by mouth 3 times daily 11/01 TESSALON PERLES 100 MG CAP 942694 BENZONATATE Inact zaid AMOXICILLIN 500 MG CAP 1 tab by mouth 3 times daily 08/12/16 AMOXICILLIN 500 MG CAP 104133 AMOXICILLIN Inactive GUAIFENESIN-CODEINE 100-10 MG/5ML ORAL SYRP 2 tsp every 6 hours prn GUAIFENESIN-CODEINE 100-10 MG/5ML ORAL SYRP 739699 GUAIFENESIN-CODEINE Inactive VICKS DAYQUIL SEVERE COLD/FLU TABS 1 tab every 6 hours prn 12/10 VICKS DAYQUIL SEVERE COLD/FLU TABS PHENYLEPHRINE -DM-GG-APAP TABS Inactive BACTRIM DS 800-160 MG TABS 1 twice a day BACTRIM DS 800- 160 MG TABS 524212 SULFAMETHOXAZOLE-TRIMETHOPRIM Inactive PROMETHAZINE HCL 25 MG TABS 1 four times a day as needed for vomiting PROMETHAZINE HCL 25 MG TABS 051200 PROMETHAZINE HCL Inactive ZYRTEC ALLERGY 10 MG CAPS 1 po qd ZY RTEC ALLERGY 10 MG CAPS CETIRIZINE HCL Inactive MACROBID 100 MG CAP 1 cap by mouth twice daily MACROBID 100 MG CAP 9834888 NITROFURANTOIN MONOHYD MACRO Inactive LOMOTIL 2.5-0.025 MG TABS 1 to 2 four times a day as needed for diarrhea LOMOTIL 2.5-0.025 MG TABS 0719302 DIPHENOXYLATE-A TROPINE Inactive CYCLOBENZAPRINE HCL 10 MG TABS 1/2 - 1 tablet by mouth three times daily as needed for muscle spasm/pain CYCLOBENZAP RINE HCL 10 MG TABS 908013 CYCLOBENZAPRINE HCL Inactive AMOXICILLIN 500 MG TABS 2 tabs twice a day for 10 days AMOXICILLIN 500 MG TABS 902538 AMOXICILLIN Inactive LOMOTIL 2.5-0.025 MG TAB 1 to 2 four times a day as needed f or diarrhea LOMOTIL 2.5-0.025 MG TAB 6561453 DIPHENOXYLATE-AT ROPINE Inactive ZOFRAN 4 MG ORAL TABS 1 TAB PO Q 6 HRS PRN NAUSEA 2014 ZOFRAN 4 MG ORAL TABS 295671 ONDANSETRON HCL Inactive CITRATE OF MAGNESIA ORAL SOLN 1 bottle today for constipation 20 07/10/15 CITRATE OF MAGNESIA ORAL SOLN 7947523 MAGNESIUM CITRATE Inactive PROMETHAZINE HCL 12.5 MG TABS 1 tablet by mouth every 6 hours as needed for nausea/vomiting PROMETHAZINE HCL 12.5 MG TABS 878774 PROMETHAZINE HCL Inactive PREDNISONE 20 MG TAB 1 tablet twice daily for 2 d ays, then 1 tablet once daily for 2 days PREDNISONE 20 MG TAB 182130 PREDNISONE Inac tive ALPRAZOLAM 0.25 MG TAB 1 tablet by mouth every 8 hours as ne eded for stress ALPRAZOLAM 0.25 MG TAB 205659 ALPRAZOLAM Inact zaid FLONASE 50 MCG/ACT SUSP 1 spray each nostril twice d aily for allergies and runny nose until gone FLONASE 50 MCG/ACT SUSP F LUTICASONE PROPIONATE Inactive PREDNISONE 20 MG TAB 1 tablet daily for airway inflammation 2015 PREDNISONE 20 MG TAB 490477 PREDNISONE Inactive NAPROXEN 500 MG TAB Take 1 tab BID NAPROXEN 500 MG TAB 950706 NAPROXEN Inactive ZOLOFT 50 MG TAB 1 tablet by mouth daily ZOLOFT 50 MG TAB 168651 SERTRALINE HCL Inactive LOMOTIL 2.5-0.025 MG TAB 1 tab po four times a day as needed for diarrhea LOMOTIL 2.5-0.025 MG TAB 5325110 DIPHENOXYLATE-AT ROPINE Inactive AMOXICILLIN 500 MG TABS take 1 tab po TID AMOXICILLIN 500 MG TABS 762839 AMOXICILLIN Inactive AMOXICILLIN 500 MG CAP 1 tab by mouth 3 times daily 09/23/20 AMOXICILLIN 500 MG CAP 374271 AMOXICILLIN Inactive ZITHROMAX 250 MG TAB 2 po today, then 1 po q days 2-5 ZITHROMAX 250 MG TAB 7228034 AZITHROMYCIN Inactive ZITHROMAX 250 MG TAB 2 po today, then 1 po q days 2-5 ZITHROMAX 250 MG TAB 7729055 AZITHROMYCIN Inactive AZITHROMYCIN 500 MG TABS 1 PO q day x 6 days 3 AZITHROMYCIN 500 MG TABS 6005067 AZITHROMYCIN Inactive BACTRIM 400-80 MG TABS take one po BID BA CTRIM 400-80 MG TABS 259129 SULFAMETHOXAZOLE-TRIMETHOPRIM Inactive AZITHROMYCIN 250 MG TABS 2 po qd x 1 day, then 1 po qd x 4 days AZITHROMYCIN 250 MG TABS 0416628 AZITHROMYCIN Inactiv e PREDNISONE 20 MG TAB 2 tabs daily for 3 days, 1 t ab daily for 3 days, 1/2 tab daily for 2 days PREDNISONE 20 MG TAB 370775 PREDNISON E Inactive ZITHROMAX 250 MG TAB 2 po today, then 1 po q days 2-5 ZITHROMAX 250 MG TAB 6923472 AZITHROMYCIN Inactive FLAGYL 500 MG TAB 1 tablet by mouth two times daily 07/11/29 FLAGYL 500 MG TAB 938372 METRONIDAZOLE Inactive AUGMENTIN 875-125 MG TAB 1 tab by mouth twice daily with food 20 08/12/16 AUGMENTIN 875-125 MG TAB 482337 AMOXICILLIN-POT CLAVULA ANGELO Inactive NAPROXEN 500 MG TAB one tab PO BID NAPROXEN 500 MG TAB 883958 NAPROXEN Inactive PREDNISONE 20 MG TAB 2 tabs daily for 3 days, 1 t ab daily for 3 days, 1/2 tab daily for 2 days PREDNISONE 20 MG TAB 711665 PREDNISON E Inactive AZITHROMYCIN 250 MG TABS 2 po qd x 1 day, then 1 po qd x 4 days AZITHROMYCIN 250 MG TABS 6106678 AZITHROMYCIN Inactiv e PREDNISONE 20 MG TAB 2 tabs daily for 3 days, 1 t ab daily for 3 days, 1/2 tab daily for 2 days PREDNISONE 20 MG TAB 957386 PREDNISON E Inactive ZITHROMAX Z-EMIL 250 MG TABS 2 today, then 1 daily for 4 days 201 03/31/18 ZITHROMAX Z-EMIL 250 MG TABS 1384720 AZITHROMYCIN Inac tive CEFDINIR 300 MG CAPS 1 po BID x 10 days C EFDINIR 300 MG CAPS 20030127 CEFDINIR Inactive CEFDINIR 300 MG CAPS 1 po BID x 10 days C EFDINIR 300 MG CAPS 291969 CEFDINIR Inactive Advance Directives Directive Description Start [...] Panel - Chemistry sodium, serum 136 mmol/L 851-235 4521/04/26 carbon dioxide, venous blood 29.9 mmol/L 21.0-32 [...] 284 10^3/MM^3 10*3/mm3 142-424 Lab Report: Chlamydia/GC APTIMA/69180 - Lab chlamydia DNA probe NOT DETECTED NOT DETECTED Lab Report: Chlamydia/GC APTIMA/60968 - Microbiology Neisseria gonorrhoeae DNA probe NOT [...] urine, semiquantitative Negative Neg ative Lab Report: [facility] [place] UADIP W/MICRO, AUTO - Chemistry protein, total [...] Negative Encounters Code Encounter Date Provider Facility CPT-46191 Level 3 Est. Patient 16:40:36 CDT Arie mcqueen MD [facility] CPT-04082 Level 4 Est. Patient 15:29:22 LABELING SPECIALIST Arie mcqueen MD [facility] CPT-19797 Level 3 Est. Patient 15:18:16 LABELING SPECIALIST Jono black [facility] CPT-59789 Level 4 Est. Patient 12:08:40 LABELING SPECIALIST [facility] CPT-18955 Level 3 Est. Patient 09:24:42 CDT [facility] CPT-12374 Level 3 Est. Patient 09:12:56 CDT Arie mcqueen MD [facility] CPT-93308 Level 3 Est. Patient 16:40:54 CDT Jose Zhong MD [facility] CPT-96331 Level 2 Est. Patient 13:01:13 CDT [facility] CPT-65894 Level 3 Est. Patient 11:55:30 LABELING SPECIALIST Jono black [facility] CPT-06591 Level 3 Est. Patient 09:52:36 LABELING SPECIALIST Steve [facility] CPT-65160 Level 3 Est. Patient 16:25:33 LABELING SPECIALIST Rich Rosales MD [facility]-29221 Level 3 Est. Patient 20:33:55 CDT Arie mcqueen MD [facility]-13616 Level 3 Est. Patient 14:18:20 CDT Rich Rosales MD [facility]-52849 Level 4 Est. Patient 09:34:31 CDT Arie mcqueen MD [facility]-42300 Level 3 Est. Patient 09:08:55 LABELING SPECIALIST Liliana vincent MD [facility]-99175 Level 3 Est. Patient 16:44:07 LABELING SPECIALIST Arie mcqueen MD [facility]-13352 Level 3 Est. Patient 10:44:27 CDT Arie mcqueen MD [facility] CPT-60431 Level 3 Est. Patient 08:55:41 CDT Jose Zhong MD [facility]-17478 Level 3 Est. Patient 18:37:31 CDT Liliana vincent MD [facility]-57746 Level 3 Est. Patient 14:28:23 CDT Abelardo marroquin [facility] CPT-93228 Level 3 Est. Patient 15:18:13 LABELING SPECIALIST Arie mcqueen MD [facility]-74672 Level 3 Est. Patient 10:11:29 LABELING SPECIALIST Arie mcqueen MD [facility]-15169 Level 3 Est. Patient 10:55:57 LABELING SPECIALIST Jono black DO [facility] CPT-39247 Level 3 Est. Patient 17:29:05 CDT Arie mcqueen MD [facility] Procedures Code Procedure Name Date Entry Date Standard Desc ription CPT-78621 Sono transvag pelvis non OB uterus ovari es cervix - XRAY USE ONLY 08:58:14 LABELING SPECIALIST CPT-83072 UA w micro - LAB USE ONLY 16:04:56 LABELING SPECIALIST 2015 CPT-58662 Wet Prep/GEN - LAB USE ONLY 16:04:56 LABELING SPECIALIST 20 08/10/29 CPT-40619 First Vx - Ix admin via ID I M or jet injects without counseling by physician 16:57:10 CDT CPT-93387 Fluzone Preservative Free Intramuscular Suspension 16:57:10 CDT CPT-J0696 Rocephin 1000 mg (Ceftriaxone) 11:49:23 CDT CPT-J1040 Depo Medrol 80 mg (Methyl Prednisolone A cetate) 11:49:23 CDT CPT-J1100 Decadron 8mg (Dexamethasone) 11:49:23 CDT 2 CPT-00578 Abx/Therapy Injection 11:49:23 CDT CPT-47214 Abx/Therapy Injection 11:49:23 CDT CPT-64311 Abd compl w upright 09:07:26 LABELING SPECIALIST CPT-67069 Ear Wash 16:12:47 LABELING SPECIALIST CPT-OV Office Visit 11:12:01 CDT CPT-OV Office Visit 15:30:23 CDT CPT-66418 Sono pelvis non OB uterus ovaries cervix 15:50:44 CDT CPT-60688 Hand comp min 3V 16:42:32 CDT CPT-29465 Abd compl w upright 12:17:01 CDT CPT-21144 Nexplanon Placement 15:07:39 LABELING SPECIALIST CPT-66676 Removal of IUD 15:07:39 LABELING SPECIALIST CPT-40702 TB Tubersol 12:09:32 CDT CPT-93562 TB Tubersol 13:55:43 CDT
--- OUTSIDE RECORDS SUMMARY | 2020-03-03 08:20 | XMS REPORT | Clinical Summary ---
Author Author Admin, Diamante Marcelo Organization [facility] Address Unknown Phone Unavailable Allergies, Adverse Reactions, [...] site Abdominal pain 789.00 Active Brii Larson PRODUCTION OFFICER Abdominal pain, unspecified site Diarrhea 787.91 [...] cute pharyngitis Nausea 787.02 Active Brii Larson PRODUCTION OFFICER Nausea alone URI 465.9 Active Jono [...] Anxiety with depression 300.4 Active Glenn Larson PRODUCTION OFFICER Dysthymic disorder URI 465.9 Active Jono Gagnon [...] MG TAB Take 1 tab BID NAPROXEN 770815409 15 Active Brii Larson APRN Active NEXPLANON IMPL Left arm subcutaneously ETONOGES TREL IMPL 76149850861 Active Brii Larson APRN Active CEFDINIR 300 MG CAPS 1 po BID x 10 days CEFDINI R 01997251660 Active Brii Larson APRN Active PREDNISONE 20 MG TAB 1 tablet daily for airway inflammation 2015 PREDNISONE 93026095966 No Longer Active Brii Larson APRN Active CEFDINIR 300 MG CAPS 1 po BID x 10 days CEFDINI R 86431932021 No Longer Active Jono Gagnon DO Active FLONASE 50 MCG/ACT SUSP 1 spray each nostril twice d aily for allergies and runny nose until gone FLUTICASONE PROPIONATE No Longe r Active Jono Gagnon DO Active ALPRAZOLAM 0.25 MG TAB 1 tablet by mouth every 8 hours as ne eded for stress ALPRAZOLAM 79065036044 No Longer Active Jono Gagnon DO Active ZOLOFT 50 MG TAB 1 tablet by mouth daily SERTRA LINE HCL 58238046216 Active Arie Casper MD Active LOMOTIL 2.5-0.025 MG TAB 1 tab po four times a day as needed for diarrhea DIPHENOXYLATE-ATROPINE 64660497627 Active Brii Larson APRN Active ZITHROMAX Z-EMIL 250 MG TABS 2 today, then 1 daily for 4 days 201 03/31/18 AZITHROMYCIN 19046209799 No Longer Active Arie Casper MD Active PROTONIX 40 MG ORAL TBEC 1 po q a.m. PANTOPRAZO LE SODIUM 81684587237 Active Carline Ochoa RPT,RMA Active PREDNISONE 20 MG TAB 2 tabs daily for 3 days, 1 t ab daily for 3 days, 1/2 tab daily for 2 days PREDNISONE 85650999293 No Longer Active Brii Larson APRN Active PREDNISONE 20 MG TAB 1 tablet twice daily for 2 d ays, then 1 tablet once daily for 2 days PREDNISONE 84733317828 No Longer Active Brii Larson APRN Active PROMETHAZINE HCL 12.5 MG TABS 1 tablet by mouth every 6 hours as needed for nausea/vomiting PROMETHAZINE HCL 00482398559 No Longe r Active Jono Gagnon DO Active CITRATE OF MAGNESIA ORAL SOLN 1 bottle today for constipation 20 07/10/15 MAGNESIUM CITRATE 62381508513 No Longer Active Jono Gagnon DO Active ZOFRAN 4 MG ORAL TABS 1 TAB PO Q 6 HRS PRN NAUSEA 2014 ONDANSETRON HCL 71635159826 No Longer Active Brii Larson APRN A ctive LOMOTIL 2.5-0.025 MG TAB 1 to 2 four times a day as needed f or diarrhea DIPHENOXYLATE-ATROPINE 64426845548 No Longer Active January Larson APRN Active AMOXICILLIN 500 MG TABS 2 tabs twice a day for 10 days AMOXICILLIN 18794926774 No Longer Active Brii Larson APRN Acti ve CYCLOBENZAPRINE HCL 10 MG TABS 1/2 - 1 tablet by mouth three times daily as needed for muscle spasm/pain CYCLOBENZAPRINE HCL 40248027170 No Longer Active Arie Casper MD Active LOMOTIL 2.5-0.025 MG TABS 1 to 2 four times a day as needed for diarrhea DIPHENOXYLATE-ATROPINE 66928983842 No Longer Active D freddy Casper MD Active MACROBID 100 MG CAP 1 cap by mouth twice daily NITROFURANTOIN MONOHYD MACRO 80653790780 No Longer Active Arie Casper MD Active ZYRTEC ALLERGY 10 MG CAPS 1 po qd CETIRIZINE HCL 96371752288 No Longer Active Arie Casper MD Active AZITHROMYCIN 250 MG TABS 2 po qd x 1 day, then 1 po qd x 4 days AZITHROMYCIN 59289056627 No Longer Active Jillisael Frazelanette CABRERA Active PREDNISONE 20 MG TAB 2 tabs daily for 3 days, 1 t ab daily for 3 days, 1/2 tab daily for 2 days PREDNISONE 22903548147 No Longer Active Jillina Frazell RICK Active PROMETHAZINE HCL 25 MG TABS 1 four times a day as needed for vomiting PROMETHAZINE HCL 59557362318 No Longer Active Myrna Roberto MD Active BACTRIM DS 800-160 MG TABS 1 twice a day SULFAMETHOXAZOLE-TRIMETHOPRIM 87427052600 No Longer Active Myrna Roberto MD Active VICKS DAYQUIL SEVERE COLD/FLU TABS 1 tab every 6 hours prn 12/10 [id number]-APAP TABS 63223950521 No Longer Active Myrna leigh MD Active GUAIFENESIN-CODEINE 100-10 MG/5ML ORAL SYRP 2 tsp every 6 hours prn GUAIFENESIN-CODEINE 67188018722 No Longer Active Myrna Roberto MD Active NAPROXEN 500 MG TAB one tab PO BID NAPROXEN 332 51548336 No Longer Active Myrna Roberto MD Active AUGMENTIN 875-125 MG TAB 1 tab by mouth twice daily with food 20 08/12/16 AMOXICILLIN-POT CLAVULANATE 96869510842 No Longer Active Liliana Estrada MD PhD Active AMOXICILLIN 500 MG CAP 1 tab by mouth 3 times daily 08/12/16 AMOXICILLIN 56741753173 No Longer Active Liliana Estrada MD PhD Acti ve TESSALON PERLES 100 MG CAP 1 tablet by mouth 3 times daily 11/01 BENZONATATE 14912312017 No Longer Active Liliana Estrada MD PhD Active FLAGYL 500 MG TAB 1 tablet by mouth two times daily 07/11/29 METRONIDAZOLE 89404641632 No Longer Active Nilam Weber Active ZITHROMAX 250 MG TAB 2 po today, then 1 po q days 2-5 AZITHROMYCIN 86145321138 No Longer Active Arie Casper MD Acti ve VITAMINS 0.8 MG TABS take 1 tab po qday 08/08 [id number]-FA 81076577466 No Longer Active Arie Casper MD Active IBUPROFEN 800 MG TABS take one po Q 8 hours IBU PROFEN 52393082509 No Longer Active Arie Casper MD Active [facility] TUSSIN COUGH/COLD CF 5-10-100 MG/5ML LIQD 2 teaspoons ev eliud 4 hours [id number] 88010563911 No Longer Active Blaine Casper MD Active COMTREX COLD/COUGH DAY/NITE MS 5-2-10-325 MG MISC 2 caps deja ry 4 hours [id number]-APAP 55302818112 No Longer Active Landon Casper MD Active CHLORASEPTIC MAX SORE THROAT 15-10 MG LOZG 1 every 2 hours prn 2 BENZOCAINE-MENTHOL 90686434929 No Longer Active Arie Marcelo Active PREDNISONE 20 MG TAB 2 tabs daily for 3 days, 1 t ab daily for 3 days, 1/2 tab daily for 2 days PREDNISONE 64316508218 No Longer Active Jose Zhong MD Active AZITHROMYCIN 250 MG TABS 2 po qd x 1 day, then 1 po qd x 4 days AZITHROMYCIN 47444203256 No Longer Active Jose Zhong MD Active ZOFRAN ODT 4 MG TBDP 1 po q6hr PRN Nausea ONDAN SETRON 14167209955 No Longer Active Rich Rosales MD Active ZOFRAN 4 MG TABS 1 tablet every 4 hours ONDANSE JERRELL HCL 58328829992 No Longer Active Rich Rosales MD Active MUCINEX 600 MG [id number]-IHC Take 1-2 tablets every 12 hours GUAIFENESIN 57431648331 No Longer Active Rich Rosales MD Activ e BACTRIM 400-80 MG TABS take one po BID SULFAMETHOXAZOLE-TRIMETHOPRIM 19967473923 No Longer Active Abelardo HERNANDEZ Active AZITHROMYCIN 500 MG TABS 1 PO q day x 6 days [place] ITHROMYCIN 25529788964 No Longer Active Tin HERNANDEZ Active ZITHROMAX 250 MG TAB 2 po today, then 1 po q days 2-5 AZITHROMYCIN 43260459404 No Longer Active Arie Casper MD Acti ve ZITHROMAX 250 MG TAB 2 po today, then 1 po q days 2-5 AZITHROMYCIN 85604702747 No Longer Active Arie Casper MD Acti ve AMOXICILLIN 500 MG CAP 1 tab by mouth 3 times daily 20 09/23/20 AMOXICILLIN 28868643749 No Longer Active Arie Casper MD Acti ve BACTRIM DS 800-160 MG TAB 1 tab by mouth twice daily 2 TRIMETHOPRIM-SULFAMETHOXAZOLE 16964521124 No Longer Active Arie Casper MD Active AMOXICILLIN 500 MG TABS take 1 tab po TID AMOXI CILLIN 30751334526 No Longer Active Arie Casper MD Active BACTRIM DS 800-160 MG TAB 1 tab by mouth twice daily 2 BACTRIM DS 800-160 MG TAB 175689 TRIMETHOPRIM-SULFAMETHOXAZOLE Inac tive MUCINEX 600 MG [id number] Take 1-2 tablets every 12 hours MUCINEX 600 MG [id number] GUAIFENESIN Inactive ZOFRAN 4 MG TABS 1 tablet every 4 hours ZOFRAN 4 MG TABS 655506 ONDANSETRON HCL Inactive ZOFRAN ODT 4 MG TBDP 1 po q6hr PRN Nausea ZOFRAN ODT 4 MG TBDP 002482 ONDANSETRON Inactive CHLORASEPTIC MAX SORE THROAT 15-10 MG LOZG 1 every 2 hours prn 2 CHLORASEPTIC MAX SORE THROAT 15-10 MG LOZG BENZO ARINA-MENTHOL Inactive COMTREX COLD/COUGH DAY/NITE MS 5-2-10-325 MG MISC 2 caps deja ry 4 hours COMTREX COLD/COUGH DAY/NITE MS 5-2-10-325 MG MIS C [id number]-APAP Inactive [facility] TUSSIN COUGH/COLD CF 5-10-100 MG/5ML LIQD 2 teaspoons ev eliud 4 hours [facility] TUSSIN COUGH/COLD CF 5-10-100 MG/5ML LIQD [id number] Inactive IBUPROFEN 800 MG TABS take one po Q 8 hours IBUPROFEN 800 MG TABS IBUPROFEN Inactive VITAMINS 0.8 MG TABS take 1 tab po qday 08/08 VITAMINS 0.8 MG TABS [id number] Inactive TESSALON PERLES 100 MG CAP 1 tablet by mouth 3 times daily 11/01 TESSALON PERLES 100 MG CAP 925861 BENZONATATE Inact zaid AMOXICILLIN 500 MG CAP 1 tab by mouth 3 times daily 08/12/16 AMOXICILLIN 500 MG CAP 266411 AMOXICILLIN Inactive GUAIFENESIN-CODEINE 100-10 MG/5ML ORAL SYRP 2 tsp every 6 hours prn GUAIFENESIN-CODEINE 100-10 MG/5ML ORAL SYRP 623926 GUAIFENESIN-CODEINE Inactive VICKS DAYQUIL SEVERE COLD/FLU TABS 1 tab every 6 hours prn 12/10 VICKS DAYQUIL SEVERE COLD/FLU TABS PHENYLEPHRINE -DM-GG-APAP TABS Inactive BACTRIM DS 800-160 MG TABS 1 twice a day BACTRIM DS 800- 160 MG TABS 134907 SULFAMETHOXAZOLE-TRIMETHOPRIM Inactive PROMETHAZINE HCL 25 MG TABS 1 four times a day as needed for vomiting PROMETHAZINE HCL 25 MG TABS 293508 PROMETHAZINE HCL Inactive ZYRTEC ALLERGY 10 MG CAPS 1 po qd ZY RTEC ALLERGY 10 MG CAPS CETIRIZINE HCL Inactive MACROBID 100 MG CAP 1 cap by mouth twice daily MACROBID 100 MG CAP 0545141 NITROFURANTOIN MONOHYD MACRO Inactive LOMOTIL 2.5-0.025 MG TABS 1 to 2 four times a day as needed for diarrhea LOMOTIL 2.5-0.025 MG TABS 7538636 DIPHENOXYLATE-A TROPINE Inactive CYCLOBENZAPRINE HCL 10 MG TABS 1/2 - 1 tablet by mouth three times daily as needed for muscle spasm/pain CYCLOBENZAP RINE HCL 10 MG TABS 340339 CYCLOBENZAPRINE HCL Inactive AMOXICILLIN 500 MG TABS 2 tabs twice a day for 10 days AMOXICILLIN 500 MG TABS 434915 AMOXICILLIN Inactive LOMOTIL 2.5-0.025 MG TAB 1 to 2 four times a day as needed f or diarrhea LOMOTIL 2.5-0.025 MG TAB 1702503 DIPHENOXYLATE-AT ROPINE Inactive ZOFRAN 4 MG ORAL TABS 1 TAB PO Q 6 HRS PRN NAUSEA 2014 ZOFRAN 4 MG ORAL TABS 808607 ONDANSETRON HCL Inactive CITRATE OF MAGNESIA ORAL SOLN 1 bottle today for constipation 20 07/10/15 CITRATE OF MAGNESIA ORAL SOLN 6192530 MAGNESIUM CITRATE Inactive PROMETHAZINE HCL 12.5 MG TABS 1 tablet by mouth every 6 hours as needed for nausea/vomiting PROMETHAZINE HCL 12.5 MG TABS 054979 PROMETHAZINE HCL Inactive PREDNISONE 20 MG TAB 1 tablet twice daily for 2 d ays, then 1 tablet once daily for 2 days PREDNISONE 20 MG TAB 332992 PREDNISONE Inac tive ALPRAZOLAM 0.25 MG TAB 1 tablet by mouth every 8 hours as ne eded for stress ALPRAZOLAM 0.25 MG TAB 197319 ALPRAZOLAM Inact zaid FLONASE 50 MCG/ACT SUSP 1 spray each nostril twice d aily for allergies and runny nose until gone FLONASE 50 MCG/ACT SUSP F LUTICASONE PROPIONATE Inactive PREDNISONE 20 MG TAB 1 tablet daily for airway inflammation 2015 PREDNISONE 20 MG TAB 842236 PREDNISONE Inactive AMOXICILLIN 500 MG TABS take 1 tab po TID AMOXICILLIN 500 MG TABS 397008 AMOXICILLIN Inactive AMOXICILLIN 500 MG CAP 1 tab by mouth 3 times daily 09/23/20 AMOXICILLIN 500 MG CAP 493586 AMOXICILLIN Inactive ZITHROMAX 250 MG TAB 2 po today, then 1 po q days 2-5 ZITHROMAX 250 MG TAB 9409091 AZITHROMYCIN Inactive ZITHROMAX 250 MG TAB 2 po today, then 1 po q days 2-5 ZITHROMAX 250 MG TAB 1203388 AZITHROMYCIN Inactive AZITHROMYCIN 500 MG TABS 1 PO q day x 6 days 3 AZITHROMYCIN 500 MG TABS 9222763 AZITHROMYCIN Inactive BACTRIM 400-80 MG TABS take one po BID BA CTRIM 400-80 MG TABS 271705 SULFAMETHOXAZOLE-TRIMETHOPRIM Inactive AZITHROMYCIN 250 MG TABS 2 po qd x 1 day, then 1 po qd x 4 days AZITHROMYCIN 250 MG TABS 7330417 AZITHROMYCIN Inactiv e PREDNISONE 20 MG TAB 2 tabs daily for 3 days, 1 t ab daily for 3 days, 1/2 tab daily for 2 days PREDNISONE 20 MG TAB 223397 PREDNISON E Inactive ZITHROMAX 250 MG TAB 2 po today, then 1 po q days 2-5 ZITHROMAX 250 MG TAB 6094272 AZITHROMYCIN Inactive FLAGYL 500 MG TAB 1 tablet by mouth two times daily 07/11/29 FLAGYL 500 MG TAB 617824 METRONIDAZOLE Inactive AUGMENTIN 875-125 MG TAB 1 tab by mouth twice daily with food 20 08/12/16 AUGMENTIN 875-125 MG TAB 403210 AMOXICILLIN-POT CLAVULA ANGELO Inactive NAPROXEN 500 MG TAB one tab PO BID NAPROXEN 500 MG TAB 952054 NAPROXEN Inactive PREDNISONE 20 MG TAB 2 tabs daily for 3 days, 1 t ab daily for 3 days, 1/2 tab daily for 2 days PREDNISONE 20 MG TAB 471228 PREDNISON E Inactive AZITHROMYCIN 250 MG TABS 2 po qd x 1 day, then 1 po qd x 4 days AZITHROMYCIN 250 MG TABS 7016262 AZITHROMYCIN Inactiv e PREDNISONE 20 MG TAB 2 tabs daily for 3 days, 1 t ab daily for 3 days, 1/2 tab daily for 2 days PREDNISONE 20 MG TAB 071260 PREDNISON E Inactive ZITHROMAX Z-EMIL 250 MG TABS 2 today, then 1 daily for 4 days 201 03/31/18 ZITHROMAX Z-EMIL 250 MG TABS 4308376 AZITHROMYCIN Inac tive CEFDINIR 300 MG CAPS 1 po BID x 10 days C EFDINIR 300 MG CAPS 982672 CEFDINIR Inactive Advance Directives Directive Description Start [...] pressure, diastolic - 8462-4 81 mm[Hg] BP knenedy blood pressure, systolic - 8480-6 113 mm[Hg] [...] Panel - Chemistry sodium, serum 136 mmol/L 923-618 6845/04/26 carbon dioxide, venous blood 29.9 mmol/L 21.0-32 [...] pH, urine, semiquantitative 7.0 5.0-8.5 Lab Report: [facility] [place], UADIP W/MICRO, AUTO - Chemistry protein, [...] Negative Encounters Code Encounter Date Provider Facility CPT-48959 Level 4 Est. Patient 12:08:40 TREATMENT SPECIALIST Steve PRODUCTION OFFICER [facility] CPT-40590 Level 3 Est. Patient 09:24:42 CDT Steve [facility] CPT-97848 Level 3 Est. Patient 09:12:56 CDT Arie mcqueen MD [facility] CPT-22760 Level 3 Est. Patient 16:40:54 CDT Jose Zhong MD [facility] CPT-14187 Level 2 Est. Patient 13:01:13 CDT Steve [facility] CPT-34906 Level 3 Est. Patient 11:55:30 TREATMENT SPECIALIST Jono black DO [facility] CPT-95024 Level 3 Est. Patient 09:52:36 TREATMENT SPECIALIST Steve CABRERA [facility] CPT-98120 Level 3 Est. Patient 16:25:33 TREATMENT SPECIALIST Rich Rosales MD [facility] CPT-12708 Level 3 Est. Patient 20:33:55 CDT Arie mcqueen MD [facility] CPT-55676 Level 3 Est. Patient 14:18:20 CDT Rich Rosales MD [facility] CPT-94275 Level 4 Est. Patient 09:34:31 CDT Arie mcqueen MD [facility] CPT-14162 Level 3 Est. Patient 09:08:55 TREATMENT SPECIALIST Liliana vincent MD PhD [facility] CPT-36218 Level 3 Est. Patient 16:44:07 TREATMENT SPECIALIST Arie mcqueen MD [facility] CPT-32602 Level 3 Est. Patient 10:44:27 CDT Arie mcqueen MD [facility] CPT-70755 Level 3 Est. Patient 08:55:41 CDT Jose Zhong MD [facility] CPT-47352 Level 3 Est. Patient 18:37:31 CDT Liliana vincent MD PhD [facility] CPT-29849 Level 3 Est. Patient 14:28:23 CDT Abelardo HERNANDEZ [facility] CPT-07599 Level 3 Est. Patient 15:18:13 TREATMENT SPECIALIST Arie mcqueen MD [facility] CPT-43023 Level 3 Est. Patient 10:11:29 TREATMENT SPECIALIST Arie mcqueen MD [facility] CPT-78230 Level 3 Est. Patient 10:55:57 TREATMENT SPECIALIST Jono black DO [facility] CPT-55901 Level 3 Est. Patient 17:29:05 CDT Arie mcqueen MD [facility] Procedures Code Procedure Name Date Entry Date Standard Desc ription CPT-01794 UA w micro - LAB USE ONLY 16:04:56 TREATMENT SPECIALIST 2015 CPT-79626 Wet Prep/GEN - LAB USE ONLY 16:04:56 TREATMENT SPECIALIST 20 08/10/29 CPT-37710 First Vx - Ix admin via ID I M or jet injects without counseling by physician 16:57:10 CDT CPT-43702 Fluzone Preservative Free Intramuscular Suspension 16:57:10 CDT CPT-J0696 Rocephin 1000 mg (Ceftriaxone) 11:49:23 CDT CPT-J1040 Depo Medrol 80 mg (Methyl Prednisolone A cetate) 11:49:23 CDT CPT-J1100 Decadron 8mg (Dexamethasone) 11:49:23 CDT 2 CPT-80429 Abx/Therapy Injection 11:49:23 CDT CPT-50050 Abx/Therapy Injection 11:49:23 CDT CPT-70365 Abd compl w upright 09:07:26 TREATMENT SPECIALIST CPT-18323 Ear Wash 16:12:47 TREATMENT SPECIALIST CPT-OV Office Visit 11:12:01 CDT CPT-OV Office Visit 15:30:23 CDT CPT-26702 Sono pelvis non OB uterus ovaries cervix 15:50:44 CDT CPT-47936 Hand comp min 3V 16:42:32 CDT CPT-13415 Abd compl w upright 12:17:01 CDT CPT-93158 Nexplanon Placement 15:07:39 TREATMENT SPECIALIST CPT-05219 Removal of IUD 15:07:39 TREATMENT SPECIALIST CPT-84858 TB Tubersol 12:09:32 CDT CPT-31359 TB Tubersol 13:55:43 CDT
--- OUTSIDE RECORDS SUMMARY | 2020-03-03 08:20 | XMS REPORT | Clinical Summary ---
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 Dysthymic disorder URI 465.9 Active [...] MG TAB Take 1 tab BID NAPROXEN 734412177 15 Active Brii Larson APRN Active NEXPLANON IMPL Left arm subcutaneously ETONOGES TREL IMPL 57975111844 Active Brii Larson APRN Active CEFDINIR 300 MG CAPS 1 po BID x 10 days CEFDINI R 19863344631 No Longer Active Brii Larson APRN Active PREDNISONE 20 MG TAB 1 tablet daily for airway inflammation 2015 PREDNISONE 33528507376 No Longer Active Brii Larson APRN Active CEFDINIR 300 MG CAPS 1 po BID x 10 days CEFDINI R 22872324727 No Longer Active Jono Gagnon DO Active FLONASE 50 MCG/ACT SUSP 1 spray each nostril twice d aily for allergies and runny nose until gone FLUTICASONE PROPIONATE No Longe r Active Jono Gagnon DO Active ALPRAZOLAM 0.25 MG TAB 1 tablet by mouth every 8 hours as ne eded for stress ALPRAZOLAM 40434408448 No Longer Active Jono Gagnon DO Active ZOLOFT 50 MG TAB 1 tablet by mouth daily SERTRA LINE HCL 78108289062 Active Arie Casper MD Active LOMOTIL 2.5-0.025 MG TAB 1 tab po four times a day as needed for diarrhea DIPHENOXYLATE-ATROPINE 20944352670 Active Brii Larson APRN Active ZITHROMAX Z-EMIL 250 MG TABS 2 today, then 1 daily for 4 days 201 03/31/18 AZITHROMYCIN 63983393151 No Longer Active Arie Casper MD Active PROTONIX 40 MG ORAL TBEC 1 po q a.m. PANTOPRAZO LE SODIUM 45368374393 Active Carline Ochoa RPT,RMA Active PREDNISONE 20 MG TAB 2 tabs daily for 3 days, 1 t ab daily for 3 days, 1/2 tab daily for 2 days PREDNISONE 87762593948 No Longer Active Brii Larson APRN Active PREDNISONE 20 MG TAB 1 tablet twice daily for 2 d ays, then 1 tablet once daily for 2 days PREDNISONE 79134903361 No Longer Active Brii Larson APRN Active PROMETHAZINE HCL 12.5 MG TABS 1 tablet by mouth every 6 hours as needed for nausea/vomiting PROMETHAZINE HCL 76237576183 No Longe r Active Jono Gagnon DO Active CITRATE OF MAGNESIA ORAL SOLN 1 bottle today for constipation 20 07/10/15 MAGNESIUM CITRATE 02348291122 No Longer Active Jono Gagnon DO Active ZOFRAN 4 MG ORAL TABS 1 TAB PO Q 6 HRS PRN NAUSEA 2014 ONDANSETRON HCL 11114669214 No Longer Active Brii Larson APRN A ctive LOMOTIL 2.5-0.025 MG TAB 1 to 2 four times a day as needed f or diarrhea DIPHENOXYLATE-ATROPINE 10110675413 No Longer Active January Larson APRN Active AMOXICILLIN 500 MG TABS 2 tabs twice a day for 10 days AMOXICILLIN 75180161078 No Longer Active Brii Larson APRN Acti ve CYCLOBENZAPRINE HCL 10 MG TABS 1/2 - 1 tablet by mouth three times daily as needed for muscle spasm/pain CYCLOBENZAPRINE HCL 36923045161 No Longer Active Arie Casper MD Active LOMOTIL 2.5-0.025 MG TABS 1 to 2 four times a day as needed for diarrhea DIPHENOXYLATE-ATROPINE 34133871259 No Longer Active D freddy Casper MD Active MACROBID 100 MG CAP 1 cap by mouth twice daily NITROFURANTOIN MONOHYD MACRO 21669054900 No Longer Active Arie aCsper MD Active ZYRTEC ALLERGY 10 MG CAPS 1 po qd CETIRIZINE HCL 04645648761 No Longer Active Arie Casper MD Active AZITHROMYCIN 250 MG TABS 2 po qd x 1 day, then 1 po qd x 4 days AZITHROMYCIN 12435401878 No Longer Active Jillina Frazelanette CABRERA Active PREDNISONE 20 MG TAB 2 tabs daily for 3 days, 1 t ab daily for 3 days, 1/2 tab daily for 2 days PREDNISONE 27638883617 No Longer Active Jillina Frazell RICK Active PROMETHAZINE HCL 25 MG TABS 1 four times a day as needed for vomiting PROMETHAZINE HCL 87102713910 No Longer Active Myrna Roberto MD Active BACTRIM DS 800-160 MG TABS 1 twice a day SULFAMETHOXAZOLE-TRIMETHOPRIM 85161467970 No Longer Active Myrna Roberto MD Active VICKS DAYQUIL SEVERE COLD/FLU TABS 1 tab every 6 hours prn 12/10 [id number] TABS 94486578248 No Longer Active Myrna leigh MD Active GUAIFENESIN-CODEINE 100-10 MG/5ML ORAL SYRP 2 tsp every 6 hours prn GUAIFENESIN-CODEINE 28336030524 No Longer Active Myrna Roberto MD Active NAPROXEN 500 MG TAB one tab PO BID NAPROXEN 332 08721428 No Longer Active Myrna Roberto MD Active AUGMENTIN 875-125 MG TAB 1 tab by mouth twice daily with food 20 08/12/16 AMOXICILLIN-POT CLAVULANATE 04103037224 No Longer Active Liliana Estrada MD PhD Active AMOXICILLIN 500 MG CAP 1 tab by mouth 3 times daily 08/12/16 AMOXICILLIN 73057678000 No Longer Active Liliana Estrada MD PhD Acti ve TESSALON PERLES 100 MG CAP 1 tablet by mouth 3 times daily 11/01 BENZONATATE 63876221198 No Longer Active Liliana Estrada MD PhD Active FLAGYL 500 MG TAB 1 tablet by mouth two times daily 07/11/29 METRONIDAZOLE 61928608231 No Longer Active Nilam Weber Active ZITHROMAX 250 MG TAB 2 po today, then 1 po q days 2-5 AZITHROMYCIN 60046957038 No Longer Active Arie Casper MD Acti ve VITAMINS 0.8 MG TABS take 1 tab po qday 08/08 [id number] 09310039000 No Longer Active Arie Casper MD Active IBUPROFEN 800 MG TABS take one po Q 8 hours IBU PROFEN 91082478509 No Longer Active Arie Casper MD Active [facility] TUSSIN COUGH/COLD CF 5-10-100 MG/5ML LIQD 2 teaspoons ev eliud 4 hours [id number] 97081127277 No Longer Active Blaine Casper MD Active COMTREX COLD/COUGH DAY/NITE MS 5-2-10-325 MG MISC 2 caps deja ry 4 hours EREOLFHEB-[id number]-APAP 59610503428 No Longer Active Da aleksandra Casper MD Active CHLORASEPTIC MAX SORE THROAT 15-10 MG LOZG 1 every 2 hours prn 2 BENZOCAINE-MENTHOL 61744850436 No Longer Active Arie Marcelo Active PREDNISONE 20 MG TAB 2 tabs daily for 3 days, 1 t ab daily for 3 days, 1/2 tab daily for 2 days PREDNISONE 91573199465 No Longer Active Jose Zhong MD Active AZITHROMYCIN 250 MG TABS 2 po qd x 1 day, then 1 po qd x 4 days AZITHROMYCIN 26411269312 No Longer Active Jose Zhong MD Active ZOFRAN ODT 4 MG TBDP 1 po q6hr PRN Nausea ONDAN SETRON 73713075931 No Longer Active Rich Rosales MD Active ZOFRAN 4 MG TABS 1 tablet every 4 hours ONDANSE JERRELL HCL 88536277540 No Longer Active Rich Rosales MD Active MUCINEX 600 MG PH53N-VHR Take 1-2 tablets every 12 hours GUAIFENESIN 85647632130 No Longer Active Rich Rosales MD Activ e BACTRIM 400-80 MG TABS take one po BID SULFAMETHOXAZOLE-TRIMETHOPRIM 99729197229 No Longer Active Abelardo HERNANDEZ Active AZITHROMYCIN 500 MG TABS 1 PO q day x 6 days AZ ITHROMYCIN 40459900384 No Longer Active Tin HERNANDEZ Active ZITHROMAX 250 MG TAB 2 po today, then 1 po q days 2-5 AZITHROMYCIN 19661852874 No Longer Active Arie Casper MD Acti ve ZITHROMAX 250 MG TAB 2 po today, then 1 po q days 2-5 AZITHROMYCIN 52995300126 No Longer Active Arie Casper MD Acti ve AMOXICILLIN 500 MG CAP 1 tab by mouth 3 times daily 20 09/23/20 AMOXICILLIN 54082751893 No Longer Active Arie Casper MD Acti ve BACTRIM DS 800-160 MG TAB 1 tab by mouth twice daily 2 TRIMETHOPRIM-SULFAMETHOXAZOLE 55500775816 No Longer Active Arie Casper MD Active AMOXICILLIN 500 MG TABS take 1 tab po TID AMOXI CILLIN 30977900685 No Longer Active Arie Casper MD Active BACTRIM DS 800-160 MG TAB 1 tab by mouth twice daily 2 BACTRIM DS 800-160 MG TAB 693383 TRIMETHOPRIM-SULFAMETHOXAZOLE Inac tive MUCINEX 600 MG [id number]-TZP Take 1-2 tablets every 12 hours MUCINEX 600 MG [id number]-[facility] GUAIFENESIN Inactive ZOFRAN 4 MG TABS 1 tablet every 4 hours ZOFRAN 4 MG TABS 187317 ONDANSETRON HCL Inactive ZOFRAN ODT 4 MG TBDP 1 po q6hr PRN Nausea ZOFRAN ODT 4 MG TBDP 400344 ONDANSETRON Inactive CHLORASEPTIC MAX SORE THROAT 15-10 MG LOZG 1 every 2 hours prn 2 CHLORASEPTIC MAX SORE THROAT 15-10 MG LOZG BENZO ARINA-MENTHOL Inactive COMTREX COLD/COUGH DAY/NITE MS 5-2-10-325 MG MISC 2 caps deja ry 4 hours COMTREX COLD/COUGH DAY/NITE MS 5-2-10-325 MG MIS C [id number] Inactive [facility] TUSSIN COUGH/COLD CF 5-10-100 MG/5ML LIQD 2 teaspoons ev eliud 4 hours [facility] TUSSIN COUGH/COLD CF 5-10-100 MG/5ML LIQD [id number] Inactive IBUPROFEN 800 MG TABS take one po Q 8 hours IBUPROFEN 800 MG TABS IBUPROFEN Inactive VITAMINS 0.8 MG TABS take 1 tab po qday 08/08 VITAMINS 0.8 MG TABS [id number] Inactive TESSALON PERLES 100 MG CAP 1 tablet by mouth 3 times daily 11/01 TESSALON PERLES 100 MG CAP 653070 BENZONATATE Inact zaid AMOXICILLIN 500 MG CAP 1 tab by mouth 3 times daily 08/12/16 AMOXICILLIN 500 MG CAP 270330 AMOXICILLIN Inactive GUAIFENESIN-CODEINE 100-10 MG/5ML ORAL SYRP 2 tsp every 6 hours prn GUAIFENESIN-CODEINE 100-10 MG/5ML ORAL SYRP 959426 GUAIFENESIN-CODEINE Inactive VICKS DAYQUIL SEVERE COLD/FLU TABS 1 tab every 6 hours prn 12/10 VICKS DAYQUIL SEVERE COLD/FLU TABS PHENYLEPHRINE -DM-GG-APAP TABS Inactive BACTRIM DS 800-160 MG TABS 1 twice a day BACTRIM DS 800- 160 MG TABS 602207 SULFAMETHOXAZOLE-TRIMETHOPRIM Inactive PROMETHAZINE HCL 25 MG TABS 1 four times a day as needed for vomiting PROMETHAZINE HCL 25 MG TABS 250076 PROMETHAZINE HCL Inactive ZYRTEC ALLERGY 10 MG CAPS 1 po qd ZY RTEC ALLERGY 10 MG CAPS CETIRIZINE HCL Inactive MACROBID 100 MG CAP 1 cap by mouth twice daily MACROBID 100 MG CAP 8533834 NITROFURANTOIN MONOHYD MACRO Inactive LOMOTIL 2.5-0.025 MG TABS 1 to 2 four times a day as needed for diarrhea LOMOTIL 2.5-0.025 MG TABS 1241990 DIPHENOXYLATE-A TROPINE Inactive CYCLOBENZAPRINE HCL 10 MG TABS 1/2 - 1 tablet by mouth three times daily as needed for muscle spasm/pain CYCLOBENZAP RINE HCL 10 MG TABS 491646 CYCLOBENZAPRINE HCL Inactive AMOXICILLIN 500 MG TABS 2 tabs twice a day for 10 days AMOXICILLIN 500 MG TABS 676661 AMOXICILLIN Inactive LOMOTIL 2.5-0.025 MG TAB 1 to 2 four times a day as needed f or diarrhea LOMOTIL 2.5-0.025 MG TAB 3518365 DIPHENOXYLATE-AT ROPINE Inactive ZOFRAN 4 MG ORAL TABS 1 TAB PO Q 6 HRS PRN NAUSEA 2014 ZOFRAN 4 MG ORAL TABS 723107 ONDANSETRON HCL Inactive CITRATE OF MAGNESIA ORAL SOLN 1 bottle today for constipation 20 07/10/15 CITRATE OF MAGNESIA ORAL SOLN 9451211 MAGNESIUM CITRATE Inactive PROMETHAZINE HCL 12.5 MG TABS 1 tablet by mouth every 6 hours as needed for nausea/vomiting PROMETHAZINE HCL 12.5 MG TABS 036950 PROMETHAZINE HCL Inactive PREDNISONE 20 MG TAB 1 tablet twice daily for 2 d ays, then 1 tablet once daily for 2 days PREDNISONE 20 MG TAB 377218 PREDNISONE Inac tive ALPRAZOLAM 0.25 MG TAB 1 tablet by mouth every 8 hours as ne eded for stress ALPRAZOLAM 0.25 MG TAB 363819 ALPRAZOLAM Inact zaid FLONASE 50 MCG/ACT SUSP 1 spray each nostril twice d aily for allergies and runny nose until gone FLONASE 50 MCG/ACT SUSP F LUTICASONE PROPIONATE Inactive PREDNISONE 20 MG TAB 1 tablet daily for airway inflammation 2015 PREDNISONE 20 MG TAB 788093 PREDNISONE Inactive AMOXICILLIN 500 MG TABS take 1 tab po TID AMOXICILLIN 500 MG TABS 281155 AMOXICILLIN Inactive AMOXICILLIN 500 MG CAP 1 tab by mouth 3 times daily 09/23/20 AMOXICILLIN 500 MG CAP 540540 AMOXICILLIN Inactive ZITHROMAX 250 MG TAB 2 po today, then 1 po q days 2-5 ZITHROMAX 250 MG TAB 6526848 AZITHROMYCIN Inactive ZITHROMAX 250 MG TAB 2 po today, then 1 po q days 2-5 ZITHROMAX 250 MG TAB 8345406 AZITHROMYCIN Inactive AZITHROMYCIN 500 MG TABS 1 PO q day x 6 days 3 AZITHROMYCIN 500 MG TABS 0155613 AZITHROMYCIN Inactive BACTRIM 400-80 MG TABS take one po BID BA CTRIM 400-80 MG TABS 992581 SULFAMETHOXAZOLE-TRIMETHOPRIM Inactive AZITHROMYCIN 250 MG TABS 2 po qd x 1 day, then 1 po qd x 4 days AZITHROMYCIN 250 MG TABS 4866756 AZITHROMYCIN Inactiv e PREDNISONE 20 MG TAB 2 tabs daily for 3 days, 1 t ab daily for 3 days, 1/2 tab daily for 2 days PREDNISONE 20 MG TAB 870696 PREDNISON E Inactive ZITHROMAX 250 MG TAB 2 po today, then 1 po q days 2-5 ZITHROMAX 250 MG TAB 9601592 AZITHROMYCIN Inactive FLAGYL 500 MG TAB 1 tablet by mouth two times daily 07/11/29 FLAGYL 500 MG TAB 084632 METRONIDAZOLE Inactive AUGMENTIN 875-125 MG TAB 1 tab by mouth twice daily with food 20 08/12/16 AUGMENTIN 875-125 MG TAB 676491 AMOXICILLIN-POT CLAVULA ANGELO Inactive NAPROXEN 500 MG TAB one tab PO BID NAPROXEN 500 MG TAB 626122 NAPROXEN Inactive PREDNISONE 20 MG TAB 2 tabs daily for 3 days, 1 t ab daily for 3 days, 1/2 tab daily for 2 days PREDNISONE 20 MG TAB 267154 PREDNISON E Inactive AZITHROMYCIN 250 MG TABS 2 po qd x 1 day, then 1 po qd x 4 days AZITHROMYCIN 250 MG TABS 4705938 AZITHROMYCIN Inactiv e PREDNISONE 20 MG TAB 2 tabs daily for 3 days, 1 t ab daily for 3 days, 1/2 tab daily for 2 days PREDNISONE 20 MG TAB 511119 PREDNISON E Inactive ZITHROMAX Z-EMIL 250 MG TABS 2 today, then 1 daily for 4 days 201 03/31/18 ZITHROMAX Z-EMIL 250 MG TABS 9207995 AZITHROMYCIN Inac tive CEFDINIR 300 MG CAPS [...] Panel - Chemistry sodium, serum 136 mmol/L 147-234 4172/04/26 carbon dioxide, venous blood 29.9 mmol/L 21.0-32 [...] Negative Encounters Code Encounter Date Provider Facility CPT-56525 Level 4 Est. 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 Patient 09:24:42 CDT Steve [facility] CPT-15919 Level 3 Est. Patient 09:12:56 CDT Arie mcqueen MD [facility] CPT-06493 Level 3 Est. Patient 16:40:54 CDT Jose Zhong MD [facility] CPT-69358 Level 2 Est. 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 Patient 11:55:30 PICKLE PUMPER Jono black DO [facility] CPT-37334 Level 3 Est. Patient 09:52:36 PICKLE PUMPER Steve CABRERA [facility] CPT-31674 Level 3 Est. Patient 16:25:33 PICKLE PUMPER Rich Rosales MD [facility] CPT-97957 Level 3 Est. Patient 20:33:55 CDT Arie mcqueen MD [facility] CPT-63502 Level 3 Est. Patient 14:18:20 CDT Rich Rosales MD [facility] CPT-64378 Level 4 Est. Patient 09:34:31 CDT Arie mcqueen MD [facility] CPT-58732 Level 3 Est. Patient 09:08:55 PICKLE PUMPER Liliana vincent MD PhD [facility]-19346 Level 3 Est. Patient 16:44:07 PICKLE PUMPER Arie mcqueen MD [facility] CPT-96972 Level 3 Est. Patient 10:44:27 CDT Arie mcqueen MD [facility] CPT-87227 Level 3 Est. Patient 08:55:41 CDT Jose Zhong MD [facility] CPT-13667 Level 3 Est. Patient 18:37:31 CDT Liliana vincent MD PhD [facility] CPT-43404 Level 3 Est. Patient 14:28:23 CDT Abelardo HERNANDEZ [facility] CPT-73561 Level 3 Est. Patient 15:18:13 PICKLE PUMPER Arie mcqueen MD [facility] CPT-03674 Level 3 Est. Patient 10:11:29 PICKLE PUMPER Arie mcqueen MD [facility] CPT-73011 Level 3 Est. Patient 10:55:57 PICKLE PUMPER Jono black DO [facility] CPT-72470 Level 3 Est. Patient 17:29:05 CDT Arie mcqueen MD [facility] Procedures Code Procedure Name Date Entry Date Standard Desc ription CPT-99718 Sono transvag pelvis non OB uterus ovari es cervix - XRAY USE ONLY 08:58:14 PICKLE PUMPER CPT-82155 UA w micro - LAB USE ONLY 16:04:56 PICKLE PUMPER 2015 CPT-16585 Wet Prep/GEN - LAB USE ONLY 16:04:56 PICKLE PUMPER 20 08/10/29 CPT-26669 First Vx - Ix admin via ID I M or jet injects without counseling by physician 16:57:10 CDT CPT-23761 Fluzone Preservative Free Intramuscular Suspension 16:57:10 CDT CPT-J0696 Rocephin 1000 mg (Ceftriaxone) 11:49:23 CDT CPT-J1040 Depo Medrol 80 mg (Methyl Prednisolone A cetate) 11:49:23 CDT CPT-J1100 Decadron 8mg (Dexamethasone) 11:49:23 CDT 2 CPT-41823 Abx/Therapy Injection 11:49:23 CDT CPT-23005 Abx/Therapy Injection 11:49:23 CDT CPT-48406 Abd compl w upright 09:07:26 PICKLE PUMPER CPT-88920 Ear Wash 16:12:47 PICKLE PUMPER CPT-OV Office Visit 11:12:01 CDT CPT-OV Office Visit 15:30:23 CDT CPT-37722 Sono pelvis non OB uterus ovaries cervix 15:50:44 CDT CPT-14337 Hand comp min 3V 16:42:32 CDT CPT-84822 Abd compl w upright 12:17:01 CDT CPT-22360 Nexplanon Placement 15:07:39 PICKLE PUMPER CPT-31246 Removal of IUD 15:07:39 PICKLE PUMPER CPT-97989 TB Tubersol 12:09:32 CDT CPT-55150 TB Tubersol 13:55:43 CDT
--- OUTSIDE RECORDS SUMMARY | 2020-03-03 08:21 | XMS REPORT | Clinical Summary ---
Author Author Admin, Diamante Marcelo Organization [facility] Address Unknown Phone Unavailable Allergies, Adverse Reactions, [...] with depression 300.4 Active Brii Ramirez l [employer] Dysthymic disorder URI 465.9 Active Jono Gagnon DO Acu te upper respiratory infections of unspecified site Vaginal bleeding 623.8 Resolved Jose Zhong MD Other specified noninflammatory disorders of vagina High risk sexual behavior V69.2 Active Arie Casper MD High-risk sexual behavior GERD 530.81 Active Arie Casper MD Esophageal reflux Encounter for surveillance of implantable subdermal contraceptiv e Active Brii Petrona [employer] Vaginal bleeding 623.8 Active Arie Casper MD Other specified noninflammatory disorders of vagina Influenza like illness 487.1 Active Jose Mcwilliams MD Influenza with other respiratory manifestations Sinusitis 473.9 Active Jessica Heaton [employer] Unspecified sinusitis (chronic) BREAST CANCER ICD-V16.3 Inactive [...] wice daily, if needed for cough DEXTROMETHORPHAN-GUAIFENESIN [id number] Active Jillina Franaomi CABRERA Active CEFDINIR 300 MG ORAL CAPSULE 1 po BID x 10 days CEFDINIR 74862763562 Active Jillina Frazell [employer] Active CHERATUSSIN AC 100-10 MG/5ML ORAL SYRUP 1 tsp by mouth every 4 hours as needed for cough GUAIFENESIN-CODEINE 58864195528 No Longe r Active Waynellina Florina CABRERA Active TAMIFLU 75 MG ORAL CAPSULE 1 po BID x 5 days 0 OSELTAMIVIR PHOSPHATE 31544778239 No Longer Active Jose Zhong MD Activ e ZITHROMAX Z-EMIL 250 MG ORAL TABLET 2 today, then 1 daily for 4 d ays AZITHROMYCIN 67658701361 No Longer Active Arie Casper MD Active PROTONIX 40 MG ORAL TABLET DELAYED RELEASE 1 po q a.m. PANTOPRAZOLE SODIUM 97011323525 No Longer Active Arie Casper MD Active BACTRIM DS 800-160 MG ORAL TABLET 1 tab by mouth twice daily 201 05/02/30 TRIMETHOPRIM-SULFAMETHOXAZOLE 10588717365 No Longer Active R [facility] Ty Active NEXPLANON IMPLANT right arm subcutaneously ETONOGESTREL IMPL 63320444420 No Longer Active Brii Petrona CABRERA Active TUSSIONEX PENNKINETIC ER 10-8 MG/5ML ORAL SUSPENSION E XTENDED RELEASE 5ml po q12hr PRN Cough HYDROCOD POLST-CHLORPHEN POLST 5 3432312592 No Longer Active Brii Arell [employer] Active CETIRIZINE HCL 10 MG ORAL TABLET 1 po qd PRN Allergies CETIRIZINE HCL 49686014915 No Longer Active Brii Russ APRN Activ e PREDNISONE 20 MG ORAL TABLET 2 tabs daily for 3 days, 1 tab daily for 3 days, 1/2 tab daily for 2 days PREDNISONE 29073222976 No Longer Active Arie Casper MD Active LOMOTIL 2.5-0.025 MG ORAL TABLET 1 tab po four times a day as needed for diarrhea DIPHENOXYLATE-ATROPINE 28410816180 No Lo nger Active Arie Casper MD Active ZOLOFT 50 MG ORAL TABLET 1 tablet by mouth daily 12/08 SERTRALINE HCL 04889024821 No Longer Active Arie Casper MD Ac tive NAPROXEN 500 MG ORAL TABLET Take 1 tab BID NAPR OXEN 18803956195 No Longer Active Arie Casper MD Active CEFDINIR 300 MG ORAL CAPSULE 1 po BID x 10 days CEFDINIR 74959154524 No Longer Active Brii Russ APRN Active PREDNISONE 20 MG ORAL TABLET 1 tablet daily for airway inflammat ion PREDNISONE 25950526235 No Longer Active Brii Russ APRN A ctive CEFDINIR 300 MG ORAL CAPSULE 1 po BID x 10 days CEFDINIR 61585961373 No Longer Active Jono Gagnon DO Active FLONASE 50 MCG/ACT NASAL SUSPENSION 1 spray each nostr il twice daily for allergies and runny nose until gone FLUT ICASONE PROPIONATE 20105612826 No Longer Active Jono Gagnon DO Active ALPRAZOLAM 0.25 MG ORAL TABLET 1 tablet by mouth every 8 hours as needed for stress ALPRAZOLAM 58640280326 No Longer Active Jono aGgnon DO Active ZITHROMAX Z-EMIL 250 MG ORAL TABLET 2 today, then 1 daily for 4 d ays AZITHROMYCIN 64898149952 No Longer Active Arie Casper MD Active PREDNISONE 20 MG ORAL TABLET 2 tabs daily for 3 days, 1 tab daily for 3 days, 1/2 tab daily for 2 days PREDNISONE 61748527038 No Longer Active Brii Russ APRN Active PREDNISONE 20 MG ORAL TABLET 1 tablet twice daily for 2 days, then 1 tablet once daily for 2 days PREDNISONE 53561546599 No Longer Active Brii Russ APRN Active PROMETHAZINE HCL 12.5 MG ORAL TABLET 1 tablet by mouth every 6 hours as needed for nausea/vomiting PROMETHAZINE HCL 07521853671 No L onger Active Jono Gagnon DO Active CITRATE OF MAGNESIA ORAL SOLUTION 1 bottle today for constipatio n MAGNESIUM CITRATE 96917646318 No Longer Active Jono Gagnon DO Active ZOFRAN 4 MG ORAL TABLET 1 TAB PO Q 6 HRS PRN NAUSEA 07/10/15 ONDANSETRON HCL 95564654022 No Longer Active Brii Russ APRN Acti ve LOMOTIL 2.5-0.025 MG ORAL TABLET 1 to 2 four times a day as needed for diarrhea DIPHENOXYLATE-ATROPINE 99228365371 No Longer Active January Russ APRN Active AMOXICILLIN 500 MG ORAL TABLET 2 tabs twice a day for 10 days 20 07/09/11 AMOXICILLIN 15676260800 No Longer Active Brii Russ APRN Active CYCLOBENZAPRINE HCL 10 MG ORAL TABLET 1/2 - 1 tablet b y mouth three times daily as needed for muscle spasm/pain CYCLOBENZAPRINE HCL 90340228777 No Longer Active Arie Casper MD Active LOMOTIL 2.5-0.025 MG ORAL TABLET 1 to 2 four times a day as needed for diarrhea DIPHENOXYLATE-ATROPINE 29943103427 No Longer Active Fozia Casper MD Active MACROBID 100 MG ORAL CAPSULE 1 cap by mouth twice daily NITROFURANTOIN MONOHYD MACRO 39698674267 No Longer Active Arie Casper MD Active ZYRTEC ALLERGY 10 MG ORAL CAPSULE 1 po qd CE TIRIZINE HCL 60718116397 No Longer Active Arie Casper MD Active AZITHROMYCIN 250 MG ORAL TABLET 2 po qd x 1 day, then 1 po q d x 4 days AZITHROMYCIN 19646079957 No Longer Active Jessica salgado [employer] Active PREDNISONE 20 MG ORAL TABLET 2 tabs daily for 3 days, 1 tab daily for 3 days, 1/2 tab daily for 2 days PREDNISONE 98560039305 No Longer Active Jessica Heaton APRN Active PROMETHAZINE HCL 25 MG ORAL TABLET 1 four times a day as nee ded for vomiting PROMETHAZINE HCL 61556071371 No Longer Active Myrna Roberto MD Active BACTRIM DS 800-160 MG ORAL TABLET 1 twice a day 05/30 SULFAMETHOXAZOLE-TRIMETHOPRIM 83819926579 No Longer Active Myrna Roberto MD Active VICKS DAYQUIL SEVERE COLD/FLU TABLET 1 tab every 6 hours prn 201 02/22/17 [id number] TABS 41667432145 No Longer Active Chris Roberto MD Active GUAIFENESIN-CODEINE 100-10 MG/5ML ORAL SYRUP 2 tsp every 6 hours prn GUAIFENESIN-CODEINE 25980029255 No Longer Active Myrna Roberto MD Active NAPROXEN 500 MG ORAL TABLET one tab PO BID NAPR OXEN 51765195650 No Longer Active Myrna Roberto MD Active AUGMENTIN 875-125 MG ORAL TABLET 1 tab by mouth twice daily with food AMOXICILLIN-POT CLAVULANATE 60496346118 No Longer Act zaid Liliana Estrada MD PhD Active AMOXICILLIN 500 MG ORAL CAPSULE 1 tab by mouth 3 times daily 201 02/21/05 AMOXICILLIN 75658792842 No Longer Active Liliana Estrada MD PhD Active TESSALON PERLES 100 MG ORAL CAPSULE 1 tablet by mouth 3 times da cory BENZONATATE 87773048437 No Longer Active Liliana Estrada MD PhD Active FLAGYL 500 MG ORAL TABLET 1 tablet by mouth two times daily 2014 METRONIDAZOLE 18054267980 No Longer Active Nilam Doran tive ZITHROMAX 250 MG ORAL TABLET 2 po today, then 1 po q days 2-5 20 06/08/16 AZITHROMYCIN 95755349028 No Longer Active Arie Casper MD Active VITAMINS 0.8 MG ORAL TABLET take 1 tab po qday [id number] 33190450326 No Longer Active Arei Casper MD Active IBUPROFEN 800 MG ORAL TABLET take one po Q 8 hours 201 02/01/16 IBUPROFEN 10866555097 No Longer Active Arie Casper MD Acti ve [facility] TUSSIN COUGH/COLD CF 5-10-100 MG/5ML ORAL LIQUID 2 teasp oons every 4 hours [id number] 45645727846 No Longer Active Blaine Casper MD Active COMTREX COLD/COUGH DAY/NITE MS 5-2-10-325 MG ORAL 2 caps deja ry 4 hours [id number] 80129194300 No Longer Active Da aleksandra Casper MD Active CHLORASEPTIC MAX SORE THROAT 15-10 MG MOUTH/THROAT LOZENGE 1 every 2 hours prn BENZOCAINE-MENTHOL 05770417971 No Longer Active Arie Casper MD Active PREDNISONE 20 MG ORAL TABLET 2 tabs daily for 3 days, 1 tab daily for 3 days, 1/2 tab daily for 2 days PREDNISONE 93460410747 No Longer Active Jose Zhong MD Active AZITHROMYCIN 250 MG ORAL TABLET 2 po qd x 1 day, then 1 po q d x 4 days AZITHROMYCIN 87997382241 No Longer Active Jose Mcwilliams MD Active ZOFRAN ODT 4 MG ORAL TABLET DISINTEGRATING 1 po q6hr PRN Nausea ONDANSETRON 78374236738 No Longer Active Rich Rosales MD Active ZOFRAN 4 MG ORAL TABLET 1 tablet every 4 hours ONDANSETRON HCL 40617863252 No Longer Active Rich Rosales MD Activ e MUCINEX 600 MG ORAL TABLET EXTENDED RELEASE 12 HOUR Ta ke 1-2 tablets every 12 hours GUAIFENESIN 09226140580 No Longer Active Rich Rosales MD Active BACTRIM 400-80 MG ORAL TABLET take one po BID SULFAMETHOXAZOLE-TRIMETHOPRIM 01941509762 No Longer Active Abelardo HERNANDEZ Active AZITHROMYCIN 500 MG ORAL TABLET 1 PO q day x 6 days 20 03/02/23 AZITHROMYCIN 18190336576 No Longer Active Tin HERNANDEZ Activ e ZITHROMAX 250 MG ORAL TABLET 2 po today, then 1 po q days 2-5 20 10/03/08 AZITHROMYCIN 49166746741 No Longer Active Arie Casper MD Active ZITHROMAX 250 MG ORAL TABLET 2 po today, then 1 po q days 2-5 20 09/23/25 AZITHROMYCIN 96872112995 No Longer Active Arie Casper MD Active AMOXICILLIN 500 MG ORAL CAPSULE 1 tab by mouth 3 times daily 201 11/24/09 AMOXICILLIN 34970179408 No Longer Active Arie Casper MD Active BACTRIM DS 800-160 MG ORAL TABLET 1 tab by mouth twice daily 201 11/03/14 TRIMETHOPRIM-SULFAMETHOXAZOLE 03002963663 No Longer Active Fozia Casper MD Active AMOXICILLIN 500 MG ORAL TABLET take 1 tab po TID 08/05 AMOXICILLIN 99892243925 No Longer Active Arie Casper MD Acti ve BACTRIM DS 800-160 MG ORAL TABLET 1 tab by mouth twice daily 201 11/03/14 BACTRIM DS 800-160 MG ORAL TABLET 599880 TRIMETHOPRIM-SULFAMETHOXAZOLE Inactive MUCINEX 600 MG ORAL TABLET EXTENDED RELEASE 12 HOUR Ta ke 1-2 tablets every 12 hours MUCINEX 600 MG ORAL TABLET EXTENDED RELEA SE 12 HOUR GUAIFENESIN Inactive ZOFRAN 4 MG ORAL TABLET 1 tablet every 4 hours ZOFRAN 4 MG ORAL TABLET 424073 ONDANSETRON HCL Inactive ZOFRAN ODT 4 MG ORAL TABLET DISINTEGRATING 1 po q6hr PRN Nausea ZOFRAN ODT 4 MG ORAL TABLET DISINTEGRATING 729408 ONDAN SETRON Inactive CHLORASEPTIC MAX SORE THROAT 15-10 MG MOUTH/THROAT LOZENGE 1 every 2 hours prn CHLORASEPTIC MAX SORE THROAT 15-10 MG MOUTH/THROAT LOZENGE BENZOCAINE-MENTHOL Inactive COMTREX COLD/COUGH DAY/NITE MS 5-2-10-325 MG ORAL 2 caps deja ry 4 hours COMTREX COLD/COUGH DAY/NITE MS 5-2-10-325 MG ORA L [id number] Inactive [facility] TUSSIN COUGH/COLD CF 5-10-100 MG/5ML ORAL LIQUID 2 teasp oons every 4 hours [facility] TUSSIN COUGH/COLD CF 5-10-100 MG/5ML ORAL LI QUID [id number] Inactive IBUPROFEN 800 MG ORAL TABLET take one po Q 8 hours 201 02/01/16 IBUPROFEN 800 MG ORAL TABLET 298906 IBUPROFEN Inactive VITAMINS 0.8 MG ORAL TABLET take 1 tab po qday VITAMINS 0.8 MG ORAL TABLET [id number] E-FA Inactive TESSALON PERLES 100 MG ORAL CAPSULE 1 tablet by mouth 3 times da cory TESSALON PERLES 100 MG ORAL CAPSULE 244099 BENZONATATE Inactive AMOXICILLIN 500 MG ORAL CAPSULE 1 tab by mouth 3 times daily 201 02/21/05 AMOXICILLIN 500 MG ORAL CAPSULE 885648 AMOXICILLIN Inactive GUAIFENESIN-CODEINE 100-10 MG/5ML ORAL SYRUP 2 tsp every 6 hours prn GUAIFENESIN-CODEINE 100-10 MG/5ML ORAL SYRUP 775273 GUAIFENESIN-CODEINE Inactive VICKS DAYQUIL SEVERE COLD/FLU TABLET 1 tab every 6 hours prn 201 02/22/17 VICKS DAYQUIL SEVERE COLD/FLU TABLET PHENYLEPHRI [id number]-APAP TABS Inactive BACTRIM DS 800-160 MG ORAL TABLET 1 twice a day 05/30 BACTRIM DS 800-160 MG ORAL TABLET 718540 SULFAMETHOXAZOLE-TRIMETHOPRIM Inactiv e PROMETHAZINE HCL 25 MG ORAL TABLET 1 four times a day as nee ded for vomiting PROMETHAZINE HCL 25 MG ORAL TABLET 862670 PROMETHAZINE HCL Inactive ZYRTEC ALLERGY 10 MG ORAL CAPSULE 1 po qd ZYRTEC ALLERGY 10 MG ORAL CAPSULE CETIRIZINE HCL Inactive MACROBID 100 MG ORAL CAPSULE 1 cap by mouth twice daily MACROBID 100 MG ORAL CAPSULE 7548807 NITROFURANTOIN MONOHYD MACRO In active LOMOTIL 2.5-0.025 MG ORAL TABLET 1 to 2 four times a day as needed for diarrhea LOMOTIL 2.5-0.025 MG ORAL TABLET 4162192 DIPHENOXYLATE-ATROPINE Inactive CYCLOBENZAPRINE HCL 10 MG ORAL TABLET 1/2 - 1 tablet b y mouth three times daily as needed for muscle spasm/pain CYCLOBEN ZAPRINE HCL 10 MG ORAL TABLET 941221 CYCLOBENZAPRINE HCL Inactive AMOXICILLIN 500 MG ORAL TABLET 2 tabs twice a day for 10 days 20 07/09/11 AMOXICILLIN 500 MG ORAL TABLET 336968 AMOXICILLIN I nactive LOMOTIL 2.5-0.025 MG ORAL TABLET 1 to 2 four times a day as needed for diarrhea LOMOTIL 2.5-0.025 MG ORAL TABLET 3426591 DIPHENOXYLATE-ATROPINE Inactive ZOFRAN 4 MG ORAL TABLET 1 TAB PO Q 6 HRS PRN NAUSEA 20 07/10/15 ZOFRAN 4 MG ORAL TABLET 714964 ONDANSETRON HCL Inactive CITRATE OF MAGNESIA ORAL SOLUTION 1 bottle today for constipatio n CITRATE OF MAGNESIA ORAL SOLUTION 5821699 MAGNESIUM CITR ATE Inactive PROMETHAZINE HCL 12.5 MG ORAL TABLET 1 tablet by mouth every 6 hours as needed for nausea/vomiting PROMETHAZINE HCL 12.5 MG ORA L TABLET 644022 PROMETHAZINE HCL Inactive PREDNISONE 20 MG ORAL TABLET 1 tablet twice daily for 2 days, then 1 tablet once daily for 2 days PREDNISONE 20 MG ORAL TABLET 106972 PREDNISONE Inactive ALPRAZOLAM 0.25 MG ORAL TABLET 1 tablet by mouth every 8 hours as needed for stress ALPRAZOLAM 0.25 MG ORAL TABLET 356245 ALPRA ZOLAM Inactive FLONASE 50 MCG/ACT NASAL SUSPENSION 1 spray each nostr il twice daily for allergies and runny nose until gone FLON ASE 50 MCG/ACT NASAL SUSPENSION 8694124 FLUTICASONE PROPIONATE Inactive PREDNISONE 20 MG ORAL TABLET 1 tablet daily for airway inflammat ion PREDNISONE 20 MG ORAL TABLET 151179 PREDNISONE [place] ctive NAPROXEN 500 MG ORAL TABLET Take 1 tab BID NAPROXEN 500 MG ORAL TABLET 065427 NAPROXEN Inactive ZOLOFT 50 MG ORAL TABLET 1 tablet by mouth daily 12/08 ZOLOFT 50 MG ORAL TABLET 445862 SERTRALINE HCL Inactive LOMOTIL 2.5-0.025 MG ORAL TABLET 1 tab po four times a day as needed for diarrhea LOMOTIL 2.5-0.025 MG ORAL TABLET 2302936 DIPHENOXYLATE-ATROPINE Inactive CETIRIZINE HCL 10 MG ORAL TABLET 1 po qd PRN Allergies CETIRIZINE HCL 10 MG ORAL TABLET 9393857 CETIRIZINE HCL Inactiv e TUSSIONEX PENNKINETIC ER 10-8 MG/5ML ORAL SUSPENSION E XTENDED RELEASE 5ml po q12hr PRN Cough TUSSIONEX PENNKINETI C ER 10-8 MG/5ML ORAL SUSPENSION EXTENDED RELEASE HYDROCOD POLST-CHLORPHEN POLST I nactive NEXPLANON IMPLANT right arm subcutaneously NEXPLANON IMPLANT ETONOGESTREL IMPL Inactive PROTONIX 40 MG ORAL TABLET DELAYED RELEASE 1 po q a.m. PROTONIX 40 MG ORAL TABLET DELAYED RELEASE 345272 PANTOPRAZOLE SODI UM Inactive CHERATUSSIN AC 100-10 MG/5ML ORAL SYRUP 1 tsp by mouth every 4 hours as needed for cough CHERATUSSIN AC 100-10 MG/5ML ORAL SYRUP 9 67665 GUAIFENESIN-CODEINE Inactive AMOXICILLIN 500 MG ORAL TABLET take 1 tab po TID 08/05 AMOXICILLIN 500 MG ORAL TABLET 156850 AMOXICILLIN Inactive AMOXICILLIN 500 MG ORAL CAPSULE 1 tab by mouth 3 times daily 201 11/24/09 AMOXICILLIN 500 MG ORAL CAPSULE 509799 AMOXICILLIN Inactive ZITHROMAX 250 MG ORAL TABLET 2 po today, then 1 po q days 2-5 20 09/23/25 ZITHROMAX 250 MG ORAL TABLET 501295 AZITHROMYCIN [place] ctive ZITHROMAX 250 MG ORAL TABLET 2 po today, then 1 po q days 2-5 20 10/03/08 ZITHROMAX 250 MG ORAL TABLET 265826 AZITHROMYCIN [place] ctive AZITHROMYCIN 500 MG ORAL TABLET 1 PO q day x 6 days 20 03/02/23 AZITHROMYCIN 500 MG ORAL TABLET 6684448 AZITHROMYCIN Inactive BACTRIM 400-80 MG ORAL TABLET take one po BID BACTRIM 400- 80 MG ORAL TABLET 703061 SULFAMETHOXAZOLE-TRIMETHOPRIM Inactive AZITHROMYCIN 250 MG ORAL TABLET 2 po qd x 1 day, then 1 po q d x 4 days AZITHROMYCIN 250 MG ORAL TABLET 355706 AZITHROMY ALLISON Inactive PREDNISONE 20 MG ORAL TABLET 2 tabs daily for 3 days, 1 tab daily for 3 days, 1/2 tab daily for 2 days PREDNISONE 20 MG ORAL T ABLET 386436 PREDNISONE Inactive ZITHROMAX 250 MG ORAL TABLET 2 po today, then 1 po q days 2-5 20 06/08/16 ZITHROMAX 250 MG ORAL TABLET 110743 AZITHROMYCIN Arlen ctive FLAGYL 500 MG ORAL TABLET 1 tablet by mouth two times daily 2014 FLAGYL 500 MG ORAL TABLET 338500 METRONIDAZOLE Inacti ve AUGMENTIN 875-125 MG ORAL TABLET 1 tab by mouth twice daily with food AUGMENTIN 875-125 MG ORAL TABLET 469455 AMOXICIL ELSA-POT CLAVULANATE Inactive NAPROXEN 500 MG ORAL TABLET one tab PO BID NAPROXEN 500 MG ORAL TABLET 808588 NAPROXEN Inactive PREDNISONE 20 MG ORAL TABLET 2 tabs daily for 3 days, 1 tab daily for 3 days, 1/2 tab daily for 2 days PREDNISONE 20 MG ORAL T ABLET 937319 PREDNISONE Inactive AZITHROMYCIN 250 MG ORAL TABLET 2 po qd x 1 day, then 1 po q d x 4 days AZITHROMYCIN 250 MG ORAL TABLET 315436 AZITHROMY ALLISON Inactive PREDNISONE 20 MG ORAL TABLET 2 tabs daily for 3 days, 1 tab daily for 3 days, 1/2 tab daily for 2 days PREDNISONE 20 MG ORAL T ABLET 626233 PREDNISONE Inactive ZITHROMAX Z-EMIL 250 MG ORAL TABLET 2 today, then 1 daily for 4 d ays ZITHROMAX Z-EMIL 250 MG ORAL TABLET 825150 AZITHROMYCIN Inactive CEFDINIR 300 MG ORAL CAPSULE 1 po BID x 10 days 12/18 CEFDINIR 300 MG ORAL CAPSULE 20030127 CEFDINIR Inactive CEFDINIR 300 MG ORAL CAPSULE 1 po BID x 10 days CEFDINIR 300 MG ORAL CAPSULE 267333 CEFDINIR Inactive PREDNISONE 20 MG ORAL TABLET 2 tabs daily for 3 days, 1 tab daily for 3 days, 1/2 tab daily for 2 days PREDNISONE 20 MG ORAL T ABLET 594297 PREDNISONE Inactive BACTRIM DS 800-160 MG ORAL TABLET 1 tab by mouth twice daily 201 05/02/30 BACTRIM DS 800-160 MG ORAL TABLET 461696 TRIMETHOPRIM-SULFAMETHOXAZOLE Inactive ZITHROMAX Z-EMIL 250 MG ORAL TABLET 2 today, then 1 daily for 4 d ays ZITHROMAX Z-EMIL 250 MG ORAL TABLET 098903 AZITHROMYCIN Inactive TAMIFLU 75 MG ORAL CAPSULE 1 po BID x 5 days 0 TAMIFLU 75 MG ORAL CAPSULE 388453 OSELTAMIVIR PHOSPHATE Inactive Advance Directives Directive Description [...] 5.0-8.5 Encounters Code Encounter Date Provider Facility CPT-95369 Level 3 Est. Patient 11:49:34 WIRE BOUND BOX 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 Jessica boyd [facility] CPT-40979 Level 3 Est. Patient 14:55:50 WIRE BOUND BOX 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 Jose Zhong MD [facility] CPT-24568 Level 3 Est. Patient 10:21:41 WIRE BOUND BOX 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 Arie mcqueen MD [facility] CPT-82423 Level 3 Est. Patient 11:35:15 WIRE BOUND BOX 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 Arie mcqueen MD [facility] CPT-86164 Level 3 Est. Patient 15:40:28 CDT Brii Are [facility] CPT-10348 Level 3 Est. Patient 16:40:36 CDT Arie mcqueen MD [facility] CPT-20712 Level 4 Est. Patient 15:29:22 WIRE BOUND BOX 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 Arie mcqueen MD [facility] CPT-04795 Level 3 Est. Patient 15:18:16 WIRE BOUND BOX 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 Jono black DO [facility] CPT-70179 Level 4 Est. Patient 12:08:40 WIRE BOUND BOX 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 Brii Are ll [facility] [place]-42740 Level 3 Est. Patient 09:24:42 CDT Brii Are ll [employer] [facility] CPT-59374 Level 3 Est. Patient 09:12:56 CDT Arie mcqueen MD [facility] CPT-43696 Level 3 Est. Patient 16:40:54 CDT Jose Zhong MD [facility] CPT-87614 Level 2 Est. Patient 13:01:13 CDT Brii Are ll [employer] [facility] CPT-09779 Level 3 Est. Patient 11:55:30 WIRE BOUND BOX 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 Jono black DO [facility] CPT-57134 Level 3 Est. Patient 09:52:36 WIRE BOUND BOX 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 Brii Are ll [facility] CPT-56246 Level 3 Est. Patient 16:25:33 WIRE BOUND BOX 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 Rich Rosales MD [facility] CPT-68710 Level 3 Est. Patient 20:33:55 CDT Arie mcqueen MD [facility] CPT-22432 Level 3 Est. Patient 14:18:20 CDT Rich Rosales MD [facility] CPT-42473 Level 4 Est. Patient 09:34:31 CDT Arie mcqueen MD [facility] CPT-21149 Level 3 Est. Patient 09:08:55 WIRE BOUND BOX 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 Liliana vincent MD PhD [facility] CPT-66712 Level 3 Est. Patient 16:44:07 WIRE BOUND BOX 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 Arie mcqueen MD [facility] CPT-96837 Level 3 Est. Patient 10:44:27 CDT Arie mcqueen MD [facility] CPT-38444 Level 3 Est. Patient 08:55:41 CDT Jose Zhong MD [facility] CPT-66707 Level 3 Est. Patient 18:37:31 CDT Liliana vincent MD PhD [facility] CPT-96903 Level 3 Est. Patient 14:28:23 CDT Abelardo HERNANDEZ [facility] CPT-53880 Level 3 Est. Patient 15:18:13 WIRE BOUND BOX 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 Arie mcqueen MD [facility] CPT-09659 Level 3 Est. Patient 10:11:29 WIRE BOUND BOX 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 Arie mcqueen MD [facility] CPT-39498 Level 3 Est. Patient 10:55:57 WIRE BOUND BOX 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 Jono Cheema ee DO [facility] CPT-11383 Level 3 Est. Patient 17:29:05 CDT Arie mcqueen MD [facility] Procedures Code Procedure Name Date Entry Date Standard Desc ription CPT-42712 Nexplanon Removal 15:40:28 CDT CPT-19456 Sono transvag pelvis non OB uterus ovari es cervix - XRAY USE ONLY 08:58:14 WIRE BOUND BOX 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 CPT-13226 UA w micro - LAB USE ONLY 16:04:56 WIRE BOUND BOX 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 2015 CPT-95651 Wet Prep/GEN - LAB USE ONLY 16:04:56 WIRE BOUND BOX 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 20 08/10/29 CPT-68647 First Vx - Ix admin via ID I M or jet injects without counseling by physician 16:57:10 CDT CPT-35769 Fluzone Preservative Free Intramuscular Suspension 16:57:10 CDT CPT-J0696 Rocephin 1000 mg (Ceftriaxone) 11:49:23 CDT CPT-J1040 Depo Medrol 80 mg (Methyl Prednisolone A cetate) 11:49:23 CDT CPT-J1100 Decadron 8mg (Dexamethasone) 11:49:23 CDT 2 CPT-60761 Abx/Therapy Injection 11:49:23 CDT CPT-22618 Abx/Therapy Injection 11:49:23 CDT CPT-37773 Abd compl w upright 09:07:26 WIRE BOUND BOX 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 CPT-05350 Ear Wash 16:12:47 WIRE BOUND BOX 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 CPT-OV Office Visit 11:12:01 CDT CPT-OV Office Visit 15:30:23 CDT CPT-74395 Sono pelvis non OB uterus ovaries cervix 15:50:44 CDT CPT-18492 Hand comp min 3V 16:42:32 CDT CPT-30743 Abd compl w upright 12:17:01 CDT CPT-50621 Nexplanon Placement 15:07:39 WIRE BOUND BOX 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 CPT-49132 Removal of IUD 15:07:39 WIRE BOUND BOX 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 CPT-49392 TB Tubersol 12:09:32 CDT CPT-87553 TB Tubersol 13:55:43 CDT
--- OUTSIDE RECORDS SUMMARY | 2020-03-03 08:21 | XMS REPORT | Clinical Summary ---
[...] Instructions Start Date Stop Date Generic Name [facility] Status Provider Patient Instruction MACROBID 100 MG CAP 1 cap by mouth twice daily NITROFURANTOIN MONOHYD MACRO 47856982513 Active Myrna Roberto MD Active PROMETHAZINE HCL 25 MG TABS 1 four times a day as needed for vomiting PROMETHAZINE HCL 56971567468 No Longer Active Myrna Roberto MD Active BACTRIM DS 800-160 MG TABS 1 twice a day SULFAMETHOXAZOLE-TRIMETHOPRIM 38059371897 No Longer Active Myrna Roberto MD Active VICKS DAYQUIL SEVERE COLD/FLU TABS 1 tab every 6 hours prn 12/10 [id number]-RN-APAP TABS 54800183082 No Longer Active Myrna leigh MD Active GUAIFENESIN-CODEINE 100-10 MG/5ML ORAL SYRP 2 tsp every 6 hours prn GUAIFENESIN-CODEINE 74774888152 No Longer Active Myrna Roberto MD Active NAPROXEN 500 MG TAB one tab PO BID NAPROXEN 332 92848161 No Longer Active Myrna Roberto MD Active LOMOTIL 2.5-0.025 MG TABS 1 to 2 four times a day as needed for diarrhea DIPHENOXYLATE-ATROPINE 40702725338 Active Rich mcintosh MD Active AUGMENTIN 875-125 MG TAB 1 tab by mouth twice daily with food 20 08/12/16 AMOXICILLIN-POT CLAVULANATE 50403560746 No Longer Active Liliana Estrada MD PhD Active CYCLOBENZAPRINE HCL 10 MG TABS 1/2 - 1 tablet by mouth three times daily as needed for muscle spasm/pain CYCLOBENZAPRINE HCL 43915 433164 Active Liliana Estrada MD PhD Active AMOXICILLIN 500 MG CAP 1 tab by mouth 3 times daily 08/12/16 AMOXICILLIN 10669544269 No Longer Active Liliana Estrada MD PhD Acti ve TESSALON PERLES 100 MG CAP 1 tablet by mouth 3 times daily 11/01 BENZONATATE 12761360628 No Longer Active Liliana Estrada MD PhD Active FLAGYL 500 MG TAB 1 tablet by mouth two times daily 07/11/29 METRONIDAZOLE 16791292096 No Longer Active Nilam Rakatie Active ZITHROMAX 250 MG TAB 2 po today, then 1 po q days 2-5 AZITHROMYCIN 76570684999 No Longer Active Arie Casper MD Acti ve VITAMINS 0.8 MG TABS take 1 tab po qday 08/08 [id number] 35062347482 No Longer Active Arie Casper MD Active IBUPROFEN 800 MG TABS take one po Q 8 hours IBU PROFEN 98244650552 No Longer Active Arie Casper MD Active [facility]S TUSSIN COUGH/COLD CF 5-10-100 MG/5ML LIQD 2 teaspoons ev eliud 4 hours [id number]-MR 05088989763 No Longer Active Blaine Casper MD Active COMTREX COLD/COUGH DAY/NITE MS 5-2-10-325 MG MISC 2 caps deja ry 4 hours [id number]-SN-APAP 68965084533 No Longer Active Landon Casper MD Active CHLORASEPTIC MAX SORE THROAT 15-10 MG LOZG 1 every 2 hours prn 2 BENZOCAINE-MENTHOL 25004358145 No Longer Active Arie Marcelo Active PREDNISONE 20 MG TAB 2 tabs daily for 3 days, 1 t ab daily for 3 days, 1/2 tab daily for 2 days PREDNISONE 87142751778 No Longer Active Jose Zhong MD Active AZITHROMYCIN 250 MG TABS 2 po qd x 1 day, then 1 po qd x 4 days AZITHROMYCIN 09699367091 No Longer Active Jose Zhong MD Active ZOFRAN ODT 4 MG TBDP 1 po q6hr PRN Nausea ONDAN SETRON 22674231927 No Longer Active Rich Rosales MD Active ZOFRAN 4 MG TABS 1 tablet every 4 hours ONDANSE JERRELL HCL 82036220324 No Longer Active Rich Rosales MD Active MUCINEX 600 MG [id number]-VWW Take 1-2 tablets every 12 hours GUAIFENESIN 36512137916 No Longer Active Rich Rosales MD Activ e BACTRIM 400-80 MG TABS take one po BID SULFAMETHOXAZOLE-TRIMETHOPRIM 00064580094 No Longer Active Abelardo HERNANDEZ Active AZITHROMYCIN 500 MG TABS 1 PO q day x 6 days AZ ITHROMYCIN 52192001108 No Longer Active Tin HERNANDEZ Active ZITHROMAX 250 MG TAB 2 po today, then 1 po q days 2-5 AZITHROMYCIN 35678064270 No Longer Active Arie Casper MD Acti ve ZITHROMAX 250 MG TAB 2 po today, then 1 po q days 2-5 AZITHROMYCIN 62657029145 No Longer Active Arie Casper MD Acti ve AMOXICILLIN 500 MG CAP 1 tab by mouth 3 times daily 09/23/20 AMOXICILLIN 73756677014 No Longer Active Arie Casper MD Acti ve BACTRIM DS 800-160 MG TAB 1 tab by mouth twice daily 2 TRIMETHOPRIM-SULFAMETHOXAZOLE 95552738938 No Longer Active Arie Casper MD Active AMOXICILLIN 500 MG TABS take 1 tab po TID AMOXI CILLIN 07753629761 No Longer Active Arie Casper MD Active BACTRIM DS 800-160 MG TAB 1 tab by mouth twice daily 2 BACTRIM DS 800-160 MG TAB TRIMETHOPRIM-SULFAMETHOXAZOLE Inac tive MUCINEX 600 MG [id number] Take 1-2 tablets every 12 hours MUCINEX 600 MG [id number]-OVJ GUAIFENESIN Inactive ZOFRAN 4 MG TABS 1 tablet every 4 hours ZOFRAN 4 MG TABS 725369 ONDANSETRON HCL Inactive ZOFRAN ODT 4 MG TBDP 1 po q6hr PRN Nausea ZOFRAN ODT 4 MG TBDP 385858 ONDANSETRON Inactive CHLORASEPTIC MAX SORE THROAT 15-10 MG LOZG 1 every 2 hours prn 2 /04/30 CHLORASEPTIC MAX SORE THROAT 15-10 MG LOZG BENZO ARINA-MENTHOL Inactive COMTREX COLD/COUGH DAY/NITE MS 5-2-10-325 MG MISC 2 caps deja ry 4 hours COMTREX COLD/COUGH DAY/NITE MS 5-2-10-325 MG MIS C [id number]-APAP Inactive CVS TUSSIN COUGH/COLD CF 5-10-100 MG/5ML LIQD 2 teaspoons ev eliud 4 hours CVS TUSSIN COUGH/COLD CF 5-10-100 MG/5ML LIQD [id number] Inactive IBUPROFEN 800 MG TABS take one po Q 8 hours IBUPROFEN 800 MG TABS 616593 IBUPROFEN Inactive VITAMINS 0.8 MG TABS take 1 tab po qday 08/08 VITAMINS 0.8 MG TABS [id number]-FA Inactive TESSALON PERLES 100 MG CAP 1 tablet by mouth 3 times daily 11/01 TESSALON PERLES 100 MG CAP 611102 BENZONATATE Inact zaid AMOXICILLIN 500 MG CAP 1 tab by mouth 3 times daily 08/12/16 AMOXICILLIN 500 MG CAP 347043 AMOXICILLIN Inactive GUAIFENESIN-CODEINE 100-10 MG/5ML ORAL SYRP 2 tsp every 6 hours prn GUAIFENESIN-CODEINE 100-10 MG/5ML ORAL SYRP 759830 GUAIFENESIN-CODEINE Inactive VICKS DAYQUIL SEVERE COLD/FLU TABS 1 tab every 6 hours prn 12/10 VICKS DAYQUIL SEVERE COLD/FLU TABS PHENYLEPHRINE -DM-GG-APAP TABS Inactive BACTRIM DS 800-160 MG TABS 1 twice a day BACTRIM DS 800- 160 MG TABS SULFAMETHOXAZOLE-TRIMETHOPRIM Inactive PROMETHAZINE HCL 25 MG TABS 1 four times a day as needed for vomiting PROMETHAZINE HCL 25 MG TABS 220804 PROMETHAZINE HCL Inactive AMOXICILLIN 500 MG TABS take 1 tab po TID AMOXICILLIN 500 MG TABS 905510 AMOXICILLIN Inactive AMOXICILLIN 500 MG CAP 1 tab by mouth 3 times daily 09/23/20 AMOXICILLIN 500 MG CAP 566049 AMOXICILLIN Inactive ZITHROMAX 250 MG TAB 2 po today, then 1 po q days 2-5 ZITHROMAX 250 MG TAB 5741350 AZITHROMYCIN Inactive ZITHROMAX 250 MG TAB 2 po today, then 1 po q days 2-5 ZITHROMAX 250 MG TAB 5373880 AZITHROMYCIN Inactive AZITHROMYCIN 500 MG TABS 1 PO q day x 6 days 3 AZITHROMYCIN 500 MG TABS 0617161 AZITHROMYCIN Inactive BACTRIM 400-80 MG TABS take one po BID BA CTRIM 400-80 MG TABS 440893 SULFAMETHOXAZOLE-TRIMETHOPRIM Inactive AZITHROMYCIN 250 MG TABS 2 po qd x 1 day, then 1 po qd x 4 days AZITHROMYCIN 250 MG TABS 8779881 AZITHROMYCIN Inactiv e PREDNISONE 20 MG TAB 2 tabs daily for 3 days, 1 t ab daily for 3 days, 1/2 tab daily for 2 days PREDNISONE 20 MG TAB 411802 PREDNISON E Inactive ZITHROMAX 250 MG TAB 2 po today, then 1 po q days 2-5 ZITHROMAX 250 MG TAB 7028155 AZITHROMYCIN Inactive FLAGYL 500 MG TAB 1 tablet by mouth two times daily 07/11/29 FLAGYL 500 MG TAB 494481 METRONIDAZOLE Inactive AUGMENTIN 875-125 MG TAB 1 tab by mouth twice daily with food 20 08/12/16 AUGMENTIN 875-125 MG TAB 657887 AMOXICILLIN-POT CLAVULA ANGELO Inactive NAPROXEN 500 MG TAB one tab PO BID NAPROXEN 500 MG TAB 518855 NAPROXEN Inactive Advance Directives Directive Description Start [...] 214 10^3/MM^3 10*3/mm3 142-424 Lab Report: Chlamydia/GC APTIMA/[id number] - Lab chlamydia DNA probe NOT DETECTED NOT DETECTED Lab Report: Chlamydia/GC APTIMA/[id number] - Microbiology Neisseria gonorrhoeae DNA probe NOT DETECTED NO T DETECTED Lab Report: HIV-1/2 Agn/Darcy/95719, HEPAT ITIS PANEL, ACUTE W/REFLE - Chemistry [...] 5.0-8.5 Encounters Code Encounter Date Provider Facility CPT-05050 Level 3 Est. Patient 14:18:20 CDT Rich Rosales MD [facility] CPT-49279 Level 4 Est. Patient 09:34:31 CDT Arie mcqueen MD [facility] CPT-39570 Level 3 Est. Patient 09:08:55 TEAROOM HOSTESS Liliana vincent MD PhD [facility] CPT-66440 Level 3 Est. Patient 16:44:07 TEAROOM HOSTESS Arie mcqueen MD [facility] CPT-12941 Level 3 Est. Patient 10:44:27 CDT Arie mcqueen MD [facility] CPT-45220 Level 3 Est. Patient 08:55:41 CDT Jose Zhong MD [facility] CPT-96113 Level 3 Est. Patient 18:37:31 CDT Liliana vincent MD PhD [facility] CPT-53564 Level 3 Est. Patient 14:28:23 CDT Abelardo marroquin PA [facility] CPT-37970 Level 3 Est. Patient 15:18:13 TEAROOM HOSTESS Arie mcqueen MD [facility] CPT-88930 Level 3 Est. Patient 10:11:29 TEAROOM HOSTESS Arie mcqueen MD [facility] CPT-90187 Level 3 Est. Patient 10:55:57 TEAROOM HOSTESS Jono black DO [facility] CPT-96176 Level 3 Est. Patient 17:29:05 CDT Arie mcqueen MD [facility] Procedures Code Procedure Name Date Entry Date Standard Desc ription CPT-OV Office Visit 11:12:01 CDT CPT-OV Office Visit 15:30:23 CDT CPT-88121 Sono pelvis non OB uterus ovaries cervix 15:50:44 CDT CPT-86102 Hand comp min 3V 16:42:32 CDT CPT-76246 Abd compl w upright 12:17:01 CDT CPT-03122 Nexplanon Placement 15:07:39 TEAROOM HOSTESS CPT-38854 Removal of IUD 15:07:39 TEAROOM HOSTESS CPT-20510 TB Tubersol 12:09:32 CDT CPT-04899 TB Tubersol 13:55:43 CDT
--- OUTSIDE RECORDS SUMMARY | 2020-03-03 08:22 | XMS REPORT | Clinical Summary ---
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 PANTOPRAZO LE SODIUM 25007684111 Active Brii Larson APRN Active PREDNISONE 20 MG TAB 2 tabs daily for 3 days, 1 t ab daily for 3 days, 1/2 tab daily for 2 days PREDNISONE 67111917014 No Longer Active Brii Larson APRN Active PREDNISONE 20 MG TAB 1 tablet twice daily for 2 d ays, then 1 tablet once daily for 2 days PREDNISONE 73106244961 No Longer Active Brii Larson APRN Active FLONASE 50 MCG/ACT SUSP 1 spray each nostril twice d aily for allergies and runny nose until gone FLUTICASONE PROPIONATE Active Jono Gagnon DO Active PROMETHAZINE HCL 12.5 MG TABS 1 tablet by mouth every 6 hours as needed for nausea/vomiting PROMETHAZINE HCL 84230782376 No Longe r Active Jono Gagnon DO Active CITRATE OF MAGNESIA ORAL SOLN 1 bottle today for constipation 20 07/10/15 MAGNESIUM CITRATE 01598887509 No Longer Active Jono Gagnon DO Active ZOFRAN 4 MG ORAL TABS 1 TAB PO Q 6 HRS PRN NAUSEA 2014 ONDANSETRON HCL 62973721665 No Longer Active Brii Larson APRN A ctive LOMOTIL 2.5-0.025 MG TAB 1 to 2 four times a day as needed f or diarrhea DIPHENOXYLATE-ATROPINE 56926956051 No Longer Active January anguloan Neo CABRERA Active AMOXICILLIN 500 MG TABS 2 tabs twice a day for 10 days AMOXICILLIN 79618066733 No Longer Active Brii Larson APRN Acti ve NEXPLANON IMPL ETONOGESTREL IMPL 75964883138 Active Rich Rosales MD Active CYCLOBENZAPRINE HCL 10 MG TABS 1/2 - 1 tablet by mouth three times daily as needed for muscle spasm/pain CYCLOBENZAPRINE HCL 06950075308 No Longer Active Arie Casper MD Active LOMOTIL 2.5-0.025 MG TABS 1 to 2 four times a day as needed for diarrhea DIPHENOXYLATE-ATROPINE 99236652416 No Longer Active D freddy Casper MD Active MACROBID 100 MG CAP 1 cap by mouth twice daily NITROFURANTOIN MONOHYD MACRO 32970117134 No Longer Active Arie Casper MD Active ZYRTEC ALLERGY 10 MG CAPS 1 po qd CETIRIZINE HCL 68037633183 No Longer Active Arie Casper MD Active AZITHROMYCIN 250 MG TABS 2 po qd x 1 day, then 1 po qd x 4 days AZITHROMYCIN 14375806595 No Longer Active Jillina Frazelanette CABRERA Active PREDNISONE 20 MG TAB 2 tabs daily for 3 days, 1 t ab daily for 3 days, 1/2 tab daily for 2 days PREDNISONE 29889085547 No Longer Active Jillina Frazell RICK Active PROMETHAZINE HCL 25 MG TABS 1 four times a day as needed for vomiting PROMETHAZINE HCL 28169773174 No Longer Active Myrna Roberto MD Active BACTRIM DS 800-160 MG TABS 1 twice a day SULFAMETHOXAZOLE-TRIMETHOPRIM 80925605012 No Longer Active Myrna Roberto MD Active VICKS DAYQUIL SEVERE COLD/FLU TABS 1 tab every 6 hours prn 12/10 [id number]-APAP TABS 45078946784 No Longer Active Myrna leigh MD Active GUAIFENESIN-CODEINE 100-10 MG/5ML ORAL SYRP 2 tsp every 6 hours prn GUAIFENESIN-CODEINE 25458021643 No Longer Active Myrna Roberto MD Active NAPROXEN 500 MG TAB one tab PO BID NAPROXEN 332 25387835 No Longer Active Myrna Roberto MD Active AUGMENTIN 875-125 MG TAB 1 tab by mouth twice daily with food 08/12/16 AMOXICILLIN-POT CLAVULANATE 05922107469 No Longer Active Liliana Estrada MD PhD Active AMOXICILLIN 500 MG CAP 1 tab by mouth 3 times daily 08/12/16 AMOXICILLIN 40136765317 No Longer Active Liliana Estrada MD PhD Acti ve TESSALON PERLES 100 MG CAP 1 tablet by mouth 3 times daily 11/01 BENZONATATE 66645231502 No Longer Active Liliana Estrada MD PhD Active FLAGYL 500 MG TAB 1 tablet by mouth two times daily 07/11/29 METRONIDAZOLE 19497528194 No Longer Active Nilam Raida Active ZITHROMAX 250 MG TAB 2 po today, then 1 po q days 2-5 AZITHROMYCIN 06176133306 No Longer Active Arie Casper MD Acti ve VITAMINS 0.8 MG TABS take 1 tab po qday 08/08 [id number]-FA 91456270679 No Longer Active Arie Casper MD Active IBUPROFEN 800 MG TABS take one po Q 8 hours IBU PROFEN 22735316595 No Longer Active Arie Casper MD Active [facility] TUSSIN COUGH/COLD CF 5-10-100 MG/5ML LIQD 2 teaspoons ev eliud 4 hours [id number]-NW 33351093903 No Longer Active Blaine Casper MD Active COMTREX COLD/COUGH DAY/NITE MS 5-2-10-325 MG MISC 2 caps deja ry 4 hours [id number]-LDF-ZY-APAP 98755414412 No Longer Active Da aleksandra Casper MD Active CHLORASEPTIC MAX SORE THROAT 15-10 MG LOZG 1 every 2 hours prn 2 BENZOCAINE-MENTHOL 02600444333 No Longer Active Arie Marcelo Active PREDNISONE 20 MG TAB 2 tabs daily for 3 days, 1 t ab daily for 3 days, 1/2 tab daily for 2 days PREDNISONE 44993091652 No Longer Active Jose Zhong MD Active AZITHROMYCIN 250 MG TABS 2 po qd x 1 day, then 1 po qd x 4 days AZITHROMYCIN 32438588843 No Longer Active Jose Zhong MD Active ZOFRAN ODT 4 MG TBDP 1 po q6hr PRN Nausea ONDAN SETRON 79263829097 No Longer Active Rich Rosales MD Active ZOFRAN 4 MG TABS 1 tablet every 4 hours ONDANSE JERRELL HCL 69540894446 No Longer Active Rich Rosales MD Active MUCINEX 600 MG [id number]-FAV Take 1-2 tablets every 12 hours GUAIFENESIN 14352833384 No Longer Active Rich Rosales MD Activ e BACTRIM 400-80 MG TABS take one po BID SULFAMETHOXAZOLE-TRIMETHOPRIM 53079035195 No Longer Active Abelardo HERNANDEZ Active AZITHROMYCIN 500 MG TABS 1 PO q day x 6 days AZ ITHROMYCIN 82118482009 No Longer Active Tin HERNANDEZ Active ZITHROMAX 250 MG TAB 2 po today, then 1 po q days 2-5 AZITHROMYCIN 90265792458 No Longer Active Arie Casper MD Acti ve ZITHROMAX 250 MG TAB 2 po today, then 1 po q days 2-5 AZITHROMYCIN 04509517665 No Longer Active Arie Casper MD Acti ve AMOXICILLIN 500 MG CAP 1 tab by mouth 3 times daily 20 09/23/20 AMOXICILLIN 66667762558 No Longer Active Arie Casper MD Acti ve BACTRIM DS 800-160 MG TAB 1 tab by mouth twice daily 2 TRIMETHOPRIM-SULFAMETHOXAZOLE 14900469944 No Longer Active Arie Casper MD Active AMOXICILLIN 500 MG TABS take 1 tab po TID AMOXI CILLIN 13313413833 No Longer Active Arie Casper MD Active BACTRIM DS 800-160 MG TAB 1 tab by mouth twice daily 2 BACTRIM DS 800-160 MG TAB 635865 TRIMETHOPRIM-SULFAMETHOXAZOLE Inac tive MUCINEX 600 MG OB91Y-AOD Take 1-2 tablets every 12 hours MUCINEX 600 MG ZR21C-ZPT GUAIFENESIN Inactive ZOFRAN 4 MG TABS 1 tablet every 4 hours ZOFRAN 4 MG TABS 450611 ONDANSETRON HCL Inactive ZOFRAN ODT 4 MG TBDP 1 po q6hr PRN Nausea ZOFRAN ODT 4 MG TBDP 270241 ONDANSETRON Inactive CHLORASEPTIC MAX SORE THROAT 15-10 MG LOZG 1 every 2 hours prn 2 /04/30 CHLORASEPTIC MAX SORE THROAT 15-10 MG LOZG BENZO ARINA-MENTHOL Inactive COMTREX COLD/COUGH DAY/NITE MS 5-2-10-325 MG MISC 2 caps deja ry 4 hours COMTREX COLD/COUGH DAY/NITE MS 5-2-10-325 MG MIS C [id number]-APAP Inactive [facility]S TUSSIN COUGH/COLD CF 5-10-100 MG/5ML LIQD 2 teaspoons ev eliud 4 hours [facility]S TUSSIN COUGH/COLD CF 5-10-100 MG/5ML LIQD [id number]-AT-QE Inactive IBUPROFEN 800 MG TABS take one po Q 8 hours IBUPROFEN 800 MG TABS 595909 IBUPROFEN Inactive VITAMINS 0.8 MG TABS take 1 tab po qday 08/08 VITAMINS 0.8 MG TABS [id number]-CUS-QI-FA Inactive TESSALON PERLES 100 MG CAP 1 tablet by mouth 3 times daily 11/01 TESSALON PERLES 100 MG CAP 523291 BENZONATATE Inact zaid AMOXICILLIN 500 MG CAP 1 tab by mouth 3 times daily 08/12/16 AMOXICILLIN 500 MG CAP 772820 AMOXICILLIN Inactive GUAIFENESIN-CODEINE 100-10 MG/5ML ORAL SYRP 2 tsp every 6 hours prn GUAIFENESIN-CODEINE 100-10 MG/5ML ORAL SYRP 815440 GUAIFENESIN-CODEINE Inactive VICKS DAYQUIL SEVERE COLD/FLU TABS 1 tab every 6 hours prn 12/10 VICKS DAYQUIL SEVERE COLD/FLU TABS PHENYLEPHRINE -DM-GG-APAP TABS Inactive BACTRIM DS 800-160 MG TABS 1 twice a day BACTRIM DS 800- 160 MG TABS 075745 SULFAMETHOXAZOLE-TRIMETHOPRIM Inactive PROMETHAZINE HCL 25 MG TABS 1 four times a day as needed for vomiting PROMETHAZINE HCL 25 MG TABS 482821 PROMETHAZINE HCL Inactive ZYRTEC ALLERGY 10 MG CAPS 1 po qd ZY RTEC ALLERGY 10 MG CAPS CETIRIZINE HCL Inactive MACROBID 100 MG CAP 1 cap by mouth twice daily MACROBID 100 MG CAP 9369260 NITROFURANTOIN MONOHYD MACRO Inactive LOMOTIL 2.5-0.025 MG TABS 1 to 2 four times a day as needed for diarrhea LOMOTIL 2.5-0.025 MG TABS 0067310 DIPHENOXYLATE-A TROPINE Inactive CYCLOBENZAPRINE HCL 10 MG TABS 1/2 - 1 tablet by mouth three times daily as needed for muscle spasm/pain CYCLOBENZAP RINE HCL 10 MG TABS 100082 CYCLOBENZAPRINE HCL Inactive AMOXICILLIN 500 MG TABS 2 tabs twice a day for 10 days AMOXICILLIN 500 MG TABS 519252 AMOXICILLIN Inactive LOMOTIL 2.5-0.025 MG TAB 1 to 2 four times a day as needed f or diarrhea LOMOTIL 2.5-0.025 MG TAB 0909343 DIPHENOXYLATE-AT ROPINE Inactive ZOFRAN 4 MG ORAL TABS 1 TAB PO Q 6 HRS PRN NAUSEA 2014 ZOFRAN 4 MG ORAL TABS 702704 ONDANSETRON HCL Inactive CITRATE OF MAGNESIA ORAL SOLN 1 bottle today for constipation 20 07/10/15 CITRATE OF MAGNESIA ORAL SOLN 8822657 MAGNESIUM CITRATE Inactive PROMETHAZINE HCL 12.5 MG TABS 1 tablet by mouth every 6 hours as needed for nausea/vomiting PROMETHAZINE HCL 12.5 MG TABS 396748 PROMETHAZINE HCL Inactive PREDNISONE 20 MG TAB 1 tablet twice daily for 2 d ays, then 1 tablet once daily for 2 days PREDNISONE 20 MG TAB 762260 PREDNISONE Inac tive AMOXICILLIN 500 MG TABS take 1 tab po TID AMOXICILLIN 500 MG TABS 833989 AMOXICILLIN Inactive AMOXICILLIN 500 MG CAP 1 tab by mouth 3 times daily 09/23/20 AMOXICILLIN 500 MG CAP 163138 AMOXICILLIN Inactive ZITHROMAX 250 MG TAB 2 po today, then 1 po q days 2-5 ZITHROMAX 250 MG TAB 8374692 AZITHROMYCIN Inactive ZITHROMAX 250 MG TAB 2 po today, then 1 po q days 2-5 ZITHROMAX 250 MG TAB 2132355 AZITHROMYCIN Inactive AZITHROMYCIN 500 MG TABS 1 PO q day x 6 days 3 AZITHROMYCIN 500 MG TABS 6601646 AZITHROMYCIN Inactive BACTRIM 400-80 MG TABS take one po BID BA CTRIM 400-80 MG TABS 758245 SULFAMETHOXAZOLE-TRIMETHOPRIM Inactive AZITHROMYCIN 250 MG TABS 2 po qd x 1 day, then 1 po qd x 4 days AZITHROMYCIN 250 MG TABS 6789119 AZITHROMYCIN Inactiv e PREDNISONE 20 MG TAB 2 tabs daily for 3 days, 1 t ab daily for 3 days, 1/2 tab daily for 2 days PREDNISONE 20 MG TAB 803874 PREDNISON E Inactive ZITHROMAX 250 MG TAB 2 po today, then 1 po q days 2-5 ZITHROMAX 250 MG TAB 5925333 AZITHROMYCIN Inactive FLAGYL 500 MG TAB 1 tablet by mouth two times daily 07/11/29 FLAGYL 500 MG TAB 629096 METRONIDAZOLE Inactive AUGMENTIN 875-125 MG TAB 1 tab by mouth twice daily with food 20 08/12/16 AUGMENTIN 875-125 MG TAB 906383 AMOXICILLIN-POT CLAVULA ANGELO Inactive NAPROXEN 500 MG TAB one tab PO BID NAPROXEN 500 MG TAB 235392 NAPROXEN Inactive PREDNISONE 20 MG TAB 2 tabs daily for 3 days, 1 t ab daily for 3 days, 1/2 tab daily for 2 days PREDNISONE 20 MG TAB 995753 PREDNISON E Inactive AZITHROMYCIN 250 MG TABS 2 po qd x 1 day, then 1 po qd x 4 days AZITHROMYCIN 250 MG TABS 2467219 AZITHROMYCIN Inactiv e PREDNISONE 20 MG TAB 2 tabs daily for 3 days, 1 t ab daily for 3 days, 1/2 tab daily for 2 days PREDNISONE 20 MG TAB 679117 PREDNISON E Inactive Advance Directives Directive Description [...] tests PPD results in mm 0 mm PPD results in mm 0 mm [...] Panel - Chemistry sodium, serum 136 mmol/L 928-701 1288/04/26 carbon dioxide, venous blood 29.9 mmol/L 21.0-32 [...] - Chem istry sodium, serum 139 mmol/L 505-212 4738/12/15 carbon dioxide, venous blood 30.2 mmol/L 21.0-32 [...] 5.0-8.5 Encounters Code Encounter Date Provider Facility CPT-45960 Level 3 Est. Patient 16:40:54 CDT Jose Zhong MD [facility] CPT-29868 Level 2 Est. Patient 13:01:13 CDT [facility] CPT-74397 Level 3 Est. Patient 11:55:30 CHECKERER HAND Jono black DO [facility] CPT-95519 Level 3 Est. Patient 09:52:36 CHECKERER HAND Steve INSURANCE SALES MANAGER [facility] CPT-49704 Level 3 Est. Patient 16:25:33 CHECKERER HAND Rich Rosales MD [facility] CPT-67368 Level 3 Est. Patient 20:33:55 CDT Arie mcqueen MD [facility] CPT-65217 Level 3 Est. Patient 14:18:20 CDT Rich Rosales MD [facility] CPT-14512 Level 4 Est. Patient 09:34:31 CDT Arie mcqueen MD [facility] CPT-76747 Level 3 Est. Patient 09:08:55 CHECKERER HAND Liliana vincent MD PhD [facility] CPT-62245 Level 3 Est. Patient 16:44:07 CHECKERER HAND Arie mcqueen MD [facility] CPT-13619 Level 3 Est. Patient 10:44:27 CDT Arie mcqueen MD [facility] CPT-01799 Level 3 Est. Patient 08:55:41 CDT Jose Zhong MD [facility] CPT-44880 Level 3 Est. Patient 18:37:31 CDT Liliana vincent MD PhD [facility] CPT-36287 Level 3 Est. Patient 14:28:23 CDT Abelardo HERNANDEZ [facility] CPT-14139 Level 3 Est. Patient 15:18:13 CHECKERER HAND Arie mcqueen MD [facility] CPT-77852 Level 3 Est. Patient 10:11:29 CHECKERER HAND Arie mcqueen MD [facility] CPT-36488 Level 3 Est. Patient 10:55:57 CHECKERER HAND Jono black DO [facility] CPT-92678 Level 3 Est. Patient 17:29:05 CDT Arie mcqueen MD [facility] Procedures Code Procedure Name Date Entry Date Standard Desc ription CPT-55774 Abd compl w upright 09:07:26 CHECKERER HAND CPT-61488 Ear Wash 16:12:47 CHECKERER HAND CPT-OV Office Visit 11:12:01 CDT CPT-OV Office Visit 15:30:23 CDT CPT-67142 Sono pelvis non OB uterus ovaries cervix 15:50:44 CDT CPT-51571 Hand comp min 3V 16:42:32 CDT CPT-83669 Abd compl w upright 12:17:01 CDT CPT-26505 Nexplanon Placement 15:07:39 CHECKERER HAND CPT-34345 Removal of IUD 15:07:39 CHECKERER HAND CPT-47852 TB Tubersol 12:09:32 CDT CPT-19914 TB Tubersol 13:55:43 CDT
--- OUTSIDE RECORDS SUMMARY | 2020-03-03 08:22 | XMS REPORT | Clinical Summary ---
Author Author Admin, Diamante Marcelo Organization [employer] Address Unknown Phone Unavailable Allergies, Adverse Reactions, [...] site Abdominal pain 789.00 Active Brii Larson BUSINESS RISK ANALYST Abdominal pain, unspecified site Diarrhea 787.91 Resolved [...] cute pharyngitis Nausea 787.02 Active Brii Larson BUSINESS RISK ANALYST Nausea alone URI 465.9 Active [...] Anxiety with depression 300.4 Active Glenn Larson BUSINESS RISK ANALYST Dysthymic disorder URI 465.9 Active [...] MG TAB Take 1 tab BID NAPROXEN 066823476 15 Active Brii Larson APRN Active NEXPLANON IMPL Left arm subcutaneously ETONOGES TREL IMPL 99595004522 Active Brii Larson APRN Active CEFDINIR 300 MG CAPS 1 po BID x 10 days CEFDINI R 43495721195 No Longer Active Brii Larson APRN Active PREDNISONE 20 MG TAB 1 tablet daily for airway inflammation 2015 PREDNISONE 66185484107 No Longer Active Brii Larson APRN Active CEFDINIR 300 MG CAPS 1 po BID x 10 days CEFDINI R 68478386614 No Longer Active Jono W Kalin DO Active FLONASE 50 MCG/ACT SUSP 1 spray each nostril twice d aily for allergies and runny nose until gone FLUTICASONE PROPIONATE No Longe r Active Jono Gagnon DO Active ALPRAZOLAM 0.25 MG TAB 1 tablet by mouth every 8 hours as ne eded for stress ALPRAZOLAM 78102412976 No Longer Active Jono Gagnon DO Active ZOLOFT 50 MG TAB 1 tablet by mouth daily SERTRA LINE HCL 94671589669 Active Arie Casper MD Active LOMOTIL 2.5-0.025 MG TAB 1 tab po four times a day as needed for diarrhea DIPHENOXYLATE-ATROPINE 61268969965 Active Brii Larson APRN Active ZITHROMAX Z-EMIL 250 MG TABS 2 today, then 1 daily for 4 days 201 03/31/18 AZITHROMYCIN 08455336998 No Longer Active Arie Casper MD Active PROTONIX 40 MG ORAL TBEC 1 po q a.m. PANTOPRAZO LE SODIUM 34433688492 Active Carline Ohcoa RPT,RMA Active PREDNISONE 20 MG TAB 2 tabs daily for 3 days, 1 t ab daily for 3 days, 1/2 tab daily for 2 days PREDNISONE 19254118834 No Longer Active Brii Larson APRN Active PREDNISONE 20 MG TAB 1 tablet twice daily for 2 d ays, then 1 tablet once daily for 2 days PREDNISONE 67639989118 No Longer Active Brii Larson APRN Active PROMETHAZINE HCL 12.5 MG TABS 1 tablet by mouth every 6 hours as needed for nausea/vomiting PROMETHAZINE HCL 28598194786 No Longe r Active Jono Gagnon DO Active CITRATE OF MAGNESIA ORAL SOLN 1 bottle today for constipation 20 07/10/15 MAGNESIUM CITRATE 22049386941 No Longer Active Jono Gagnon DO Active ZOFRAN 4 MG ORAL TABS 1 TAB PO Q 6 HRS PRN NAUSEA 2014 ONDANSETRON HCL 56779749305 No Longer Active Brii Larson APRN A ctive LOMOTIL 2.5-0.025 MG TAB 1 to 2 four times a day as needed f or diarrhea DIPHENOXYLATE-ATROPINE 74045866255 No Longer Active January Larson APRN Active AMOXICILLIN 500 MG TABS 2 tabs twice a day for 10 days AMOXICILLIN 11862952030 No Longer Active Brii Larson APRN Acti ve CYCLOBENZAPRINE HCL 10 MG TABS 1/2 - 1 tablet by mouth three times daily as needed for muscle spasm/pain CYCLOBENZAPRINE HCL 63803859949 No Longer Active Arie Casper MD Active LOMOTIL 2.5-0.025 MG TABS 1 to 2 four times a day as needed for diarrhea DIPHENOXYLATE-ATROPINE 80992433473 No Longer Active D freddy Casper MD Active MACROBID 100 MG CAP 1 cap by mouth twice daily NITROFURANTOIN MONOHYD MACRO 55603448979 No Longer Active Arie Casper MD Active ZYRTEC ALLERGY 10 MG CAPS 1 po qd CETIRIZINE HCL 06252979218 No Longer Active Arie Casper MD Active AZITHROMYCIN 250 MG TABS 2 po qd x 1 day, then 1 po qd x 4 days AZITHROMYCIN 78636183774 No Longer Active Jillina Franaomi CABRERA Active PREDNISONE 20 MG TAB 2 tabs daily for 3 days, 1 t ab daily for 3 days, 1/2 tab daily for 2 days PREDNISONE 26578963879 No Longer Active Jillina Franaomi CABRERA Active PROMETHAZINE HCL 25 MG TABS 1 four times a day as needed for vomiting PROMETHAZINE HCL 84781968581 No Longer Active Myrna Roberto MD Active BACTRIM DS 800-160 MG TABS 1 twice a day SULFAMETHOXAZOLE-TRIMETHOPRIM 86831760877 No Longer Active Myrna Roberto MD Active VICKS DAYQUIL SEVERE COLD/FLU TABS 1 tab every 6 hours prn 12/10 [id number] TABS 00613080673 No Longer Active Myrna leigh MD Active GUAIFENESIN-CODEINE 100-10 MG/5ML ORAL SYRP 2 tsp every 6 hours prn GUAIFENESIN-CODEINE 45591008068 No Longer Active Myrna Roberto MD Active NAPROXEN 500 MG TAB one tab PO BID NAPROXEN 332 33659528 No Longer Active Myrna Robetro MD Active AUGMENTIN 875-125 MG TAB 1 tab by mouth twice daily with food 20 08/12/16 AMOXICILLIN-POT CLAVULANATE 35008258338 No Longer Active Liliana Estrada MD PhD Active AMOXICILLIN 500 MG CAP 1 tab by mouth 3 times daily 08/12/16 AMOXICILLIN 07862975040 No Longer Active Liliana Estrada MD PhD Acti ve TESSALON PERLES 100 MG CAP 1 tablet by mouth 3 times daily 11/01 BENZONATATE 95162344633 No Longer Active Liliana Estrada MD PhD Active FLAGYL 500 MG TAB 1 tablet by mouth two times daily 07/11/29 METRONIDAZOLE 10276486231 No Longer Active Nilam Weber Active ZITHROMAX 250 MG TAB 2 po today, then 1 po q days 2-5 AZITHROMYCIN 77865241156 No Longer Active Arie Casper MD Acti ve VITAMINS 0.8 MG TABS take 1 tab po qday 08/08 [id number] 68103182348 No Longer Active Arie Casper MD Active IBUPROFEN 800 MG TABS take one po Q 8 hours IBU PROFEN 77258109877 No Longer Active Arie Casper MD Active [facility] TUSSIN COUGH/COLD CF 5-10-100 MG/5ML LIQD 2 teaspoons ev eliud 4 hours [id number] 72294949870 No Longer Active Blaine Casper MD Active COMTREX COLD/COUGH DAY/NITE MS 5-2-10-325 MG MISC 2 caps deja ry 4 hours [id number] 25638091845 No Longer Active Da aleksandra Casper MD Active CHLORASEPTIC MAX SORE THROAT 15-10 MG LOZG 1 every 2 hours prn 2 BENZOCAINE-MENTHOL 37512473492 No Longer Active Arie Marcelo Active PREDNISONE 20 MG TAB 2 tabs daily for 3 days, 1 t ab daily for 3 days, 1/2 tab daily for 2 days PREDNISONE 25170332441 No Longer Active Jose Zhong MD Active AZITHROMYCIN 250 MG TABS 2 po qd x 1 day, then 1 po qd x 4 days AZITHROMYCIN 89140090671 No Longer Active Jose Zhong MD Active ZOFRAN ODT 4 MG TBDP 1 po q6hr PRN Nausea ONDAN SETRON 54424378332 No Longer Active Rich Rosales MD Active ZOFRAN 4 MG TABS 1 tablet every 4 hours ONDANSE JERRELL HCL 19533715877 No Longer Active Rich Rosales MD Active MUCINEX 600 MG [id number] Take 1-2 tablets every 12 hours GUAIFENESIN 39412067816 No Longer Active Rich Rosales MD Activ e BACTRIM 400-80 MG TABS take one po BID SULFAMETHOXAZOLE-TRIMETHOPRIM 40768213555 No Longer Active Abelardo HERNANDEZ Active AZITHROMYCIN 500 MG TABS 1 PO q day x 6 days AZ ITHROMYCIN 98872188718 No Longer Active Tin HERNANDEZ Active ZITHROMAX 250 MG TAB 2 po today, then 1 po q days 2-5 AZITHROMYCIN 89306879025 No Longer Active Arie Casper MD Acti ve ZITHROMAX 250 MG TAB 2 po today, then 1 po q days 2-5 AZITHROMYCIN 15239410438 No Longer Active Arie Casper MD Acti ve AMOXICILLIN 500 MG CAP 1 tab by mouth 3 times daily 20 09/23/20 AMOXICILLIN 21835064097 No Longer Active Arie Casper MD Acti ve BACTRIM DS 800-160 MG TAB 1 tab by mouth twice daily 2 TRIMETHOPRIM-SULFAMETHOXAZOLE 40858647667 No Longer Active Arie Casper MD Active AMOXICILLIN 500 MG TABS take 1 tab po TID AMOXI CILLIN 08538314274 No Longer Active Arie Casper MD Active BACTRIM DS 800-160 MG TAB 1 tab by mouth twice daily 2 BACTRIM DS 800-160 MG TAB 956641 TRIMETHOPRIM-SULFAMETHOXAZOLE Inac tive MUCINEX 600 MG [id number] Take 1-2 tablets every 12 hours MUCINEX 600 MG EA81I-SAN GUAIFENESIN Inactive ZOFRAN 4 MG TABS 1 tablet every 4 hours ZOFRAN 4 MG TABS 818384 ONDANSETRON HCL Inactive ZOFRAN ODT 4 MG TBDP 1 po q6hr PRN Nausea ZOFRAN ODT 4 MG TBDP 086830 ONDANSETRON Inactive CHLORASEPTIC MAX SORE THROAT 15-10 MG LOZG 1 every 2 hours prn 2 CHLORASEPTIC MAX SORE THROAT 15-10 MG LOZG BENZO ARINA-MENTHOL Inactive COMTREX COLD/COUGH DAY/NITE MS 5-2-10-325 MG MISC 2 caps deja ry 4 hours COMTREX COLD/COUGH DAY/NITE MS 5-2-10-325 MG MIS C [id number] Inactive [facility] TUSSIN COUGH/COLD CF 5-10-100 MG/5ML LIQD 2 teaspoons ev eliud 4 hours [facility] TUSSIN COUGH/COLD CF 5-10-100 MG/5ML LIQD [id number] Inactive IBUPROFEN 800 MG TABS take one po Q 8 hours IBUPROFEN 800 MG TABS IBUPROFEN Inactive VITAMINS 0.8 MG TABS take 1 tab po qday 08/08 VITAMINS 0.8 MG TABS [id number] Inactive TESSALON PERLES 100 MG CAP 1 tablet by mouth 3 times daily 11/01 TESSALON PERLES 100 MG CAP 929921 BENZONATATE Inact zaid AMOXICILLIN 500 MG CAP 1 tab by mouth 3 times daily 08/12/16 AMOXICILLIN 500 MG CAP 587046 AMOXICILLIN Inactive GUAIFENESIN-CODEINE 100-10 MG/5ML ORAL SYRP 2 tsp every 6 hours prn GUAIFENESIN-CODEINE 100-10 MG/5ML ORAL SYRP 977399 GUAIFENESIN-CODEINE Inactive VICKS DAYQUIL SEVERE COLD/FLU TABS 1 tab every 6 hours prn 12/10 VICKS DAYQUIL SEVERE COLD/FLU TABS PHENYLEPHRINE -DM-GG-APAP TABS Inactive BACTRIM DS 800-160 MG TABS 1 twice a day BACTRIM DS 800- 160 MG TABS 548889 SULFAMETHOXAZOLE-TRIMETHOPRIM Inactive PROMETHAZINE HCL 25 MG TABS 1 four times a day as needed for vomiting PROMETHAZINE HCL 25 MG TABS 693828 PROMETHAZINE HCL Inactive ZYRTEC ALLERGY 10 MG CAPS 1 po qd ZY RTEC ALLERGY 10 MG CAPS CETIRIZINE HCL Inactive MACROBID 100 MG CAP 1 cap by mouth twice daily MACROBID 100 MG CAP 1805332 NITROFURANTOIN MONOHYD MACRO Inactive LOMOTIL 2.5-0.025 MG TABS 1 to 2 four times a day as needed for diarrhea LOMOTIL 2.5-0.025 MG TABS 3383779 DIPHENOXYLATE-A TROPINE Inactive CYCLOBENZAPRINE HCL 10 MG TABS 1/2 - 1 tablet by mouth three times daily as needed for muscle spasm/pain CYCLOBENZAP RINE HCL 10 MG TABS 586109 CYCLOBENZAPRINE HCL Inactive AMOXICILLIN 500 MG TABS 2 tabs twice a day for 10 days AMOXICILLIN 500 MG TABS 536624 AMOXICILLIN Inactive LOMOTIL 2.5-0.025 MG TAB 1 to 2 four times a day as needed f or diarrhea LOMOTIL 2.5-0.025 MG TAB 8598010 DIPHENOXYLATE-AT ROPINE Inactive ZOFRAN 4 MG ORAL TABS 1 TAB PO Q 6 HRS PRN NAUSEA 2014 ZOFRAN 4 MG ORAL TABS 373636 ONDANSETRON HCL Inactive CITRATE OF MAGNESIA ORAL SOLN 1 bottle today for constipation 20 07/10/15 CITRATE OF MAGNESIA ORAL SOLN 6901365 MAGNESIUM CITRATE Inactive PROMETHAZINE HCL 12.5 MG TABS 1 tablet by mouth every 6 hours as needed for nausea/vomiting PROMETHAZINE HCL 12.5 MG TABS 329202 PROMETHAZINE HCL Inactive PREDNISONE 20 MG TAB 1 tablet twice daily for 2 d ays, then 1 tablet once daily for 2 days PREDNISONE 20 MG TAB 912266 PREDNISONE Inac tive ALPRAZOLAM 0.25 MG TAB 1 tablet by mouth every 8 hours as ne eded for stress ALPRAZOLAM 0.25 MG TAB 566408 ALPRAZOLAM Inact zaid FLONASE 50 MCG/ACT SUSP 1 spray each nostril twice d aily for allergies and runny nose until gone FLONASE 50 MCG/ACT SUSP F LUTICASONE PROPIONATE Inactive PREDNISONE 20 MG TAB 1 tablet daily for airway inflammation 2015 PREDNISONE 20 MG TAB 077326 PREDNISONE Inactive AMOXICILLIN 500 MG TABS take 1 tab po TID AMOXICILLIN 500 MG TABS 406135 AMOXICILLIN Inactive AMOXICILLIN 500 MG CAP 1 tab by mouth 3 times daily 09/23/20 AMOXICILLIN 500 MG CAP 583552 AMOXICILLIN Inactive ZITHROMAX 250 MG TAB 2 po today, then 1 po q days 2-5 ZITHROMAX 250 MG TAB 2149161 AZITHROMYCIN Inactive ZITHROMAX 250 MG TAB 2 po today, then 1 po q days 2-5 ZITHROMAX 250 MG TAB 3055748 AZITHROMYCIN Inactive AZITHROMYCIN 500 MG TABS 1 PO q day x 6 days 3 AZITHROMYCIN 500 MG TABS 6527904 AZITHROMYCIN Inactive BACTRIM 400-80 MG TABS take one po BID BA CTRIM 400-80 MG TABS 902628 SULFAMETHOXAZOLE-TRIMETHOPRIM Inactive AZITHROMYCIN 250 MG TABS 2 po qd x 1 day, then 1 po qd x 4 days AZITHROMYCIN 250 MG TABS 6156871 AZITHROMYCIN Inactiv e PREDNISONE 20 MG TAB 2 tabs daily for 3 days, 1 t ab daily for 3 days, 1/2 tab daily for 2 days PREDNISONE 20 MG TAB 243243 PREDNISON E Inactive ZITHROMAX 250 MG TAB 2 po today, then 1 po q days 2-5 ZITHROMAX 250 MG TAB 6680267 AZITHROMYCIN Inactive FLAGYL 500 MG TAB 1 tablet by mouth two times daily 07/11/29 FLAGYL 500 MG TAB 472063 METRONIDAZOLE Inactive AUGMENTIN 875-125 MG TAB 1 tab by mouth twice daily with food 20 08/12/16 AUGMENTIN 875-125 MG TAB 965281 AMOXICILLIN-POT CLAVULA ANGELO Inactive NAPROXEN 500 MG TAB one tab PO BID NAPROXEN 500 MG TAB 226626 NAPROXEN Inactive PREDNISONE 20 MG TAB 2 tabs daily for 3 days, 1 t ab daily for 3 days, 1/2 tab daily for 2 days PREDNISONE 20 MG TAB 467864 PREDNISON E Inactive AZITHROMYCIN 250 MG TABS 2 po qd x 1 day, then 1 po qd x 4 days AZITHROMYCIN 250 MG TABS 0494391 AZITHROMYCIN Inactiv e PREDNISONE 20 MG TAB 2 tabs daily for 3 days, 1 t ab daily for 3 days, 1/2 tab daily for 2 days PREDNISONE 20 MG TAB 846958 PREDNISON E Inactive ZITHROMAX Z-EMIL 250 MG TABS 2 today, then 1 daily for 4 days 201 03/31/18 ZITHROMAX Z-EMIL 250 MG TABS 0799974 AZITHROMYCIN Inac tive CEFDINIR 300 MG CAPS [...] Panel - Chemistry sodium, serum 136 mmol/L 479-399 0907/04/26 carbon dioxide, venous blood 29.9 mmol/L 21.0-32 [...] Negative Encounters Code Encounter Date Provider Facility CPT-33473 Level 4 Est. Patient 12:08:40 GRAIN SACKER Steve BUSINESS RISK ANALYST [facility] CPT-46390 Level 3 Est. Patient 09:24:42 CDT Steve [facility] CPT-06620 Level 3 Est. Patient 09:12:56 CDT Arie mcqueen MD [facility] CPT-55430 Level 3 Est. Patient 16:40:54 CDT Jose Zhong MD [facility] CPT-96174 Level 2 Est. Patient 13:01:13 CDT Steve BUSINESS RISK ANALYST [facility] CPT-64964 Level 3 Est. Patient 11:55:30 GRAIN SACKER Jono black DO [facility] CPT-38320 Level 3 Est. Patient 09:52:36 GRAIN SACKER Steve CABRERA [facility] CPT-02232 Level 3 Est. Patient 16:25:33 GRAIN SACKER Rich Rosales MD [facility] CPT-17458 Level 3 Est. Patient 20:33:55 CDT Arie mcqueen MD [facility] CPT-32264 Level 3 Est. Patient 14:18:20 CDT Rcih Rosales MD [facility] CPT-61091 Level 4 Est. Patient 09:34:31 CDT Arie mcqueen MD [facility]-41111 Level 3 Est. Patient 09:08:55 GRAIN SACKER Liliana vincent MD PhD [facility]-98625 Level 3 Est. Patient 16:44:07 GRAIN SACKER Arie mcqueen MD [facility] CPT-43527 Level 3 Est. Patient 10:44:27 CDT Arie mcqueen MD [facility] CPT-97063 Level 3 Est. Patient 08:55:41 CDT Jose Zhong MD [facility] CPT-17607 Level 3 Est. Patient 18:37:31 CDT Liliana vincent MD PhD [facility] CPT-97161 Level 3 Est. Patient 14:28:23 CDT Abelardo HERNANDEZ [facility] CPT-70988 Level 3 Est. Patient 15:18:13 GRAIN SACKER Arie mcqueen MD [facility] CPT-61771 Level 3 Est. Patient 10:11:29 GRAIN SACKER Arie mcqueen MD [facility] CPT-50129 Level 3 Est. Patient 10:55:57 GRAIN SACKER Jono black DO [facility] CPT-71389 Level 3 Est. Patient 17:29:05 CDT Arie mcqueen MD [facility] Procedures Code Procedure Name Date Entry Date Standard Desc ription CPT-16689 UA w micro - LAB USE ONLY 16:04:56 GRAIN SACKER 2015 CPT-57767 Wet Prep/GEN - LAB USE ONLY 16:04:56 GRAIN SACKER 20 08/10/29 CPT-65728 First Vx - Ix admin via ID I M or jet injects without counseling by physician 16:57:10 CDT CPT-73238 Fluzone Preservative Free Intramuscular Suspension 16:57:10 CDT CPT-J0696 Rocephin 1000 mg (Ceftriaxone) 11:49:23 CDT CPT-J1040 Depo Medrol 80 mg (Methyl Prednisolone A cetate) 11:49:23 CDT CPT-J1100 Decadron 8mg (Dexamethasone) 11:49:23 CDT 2 CPT-93328 Abx/Therapy Injection 11:49:23 CDT CPT-09723 Abx/Therapy Injection 11:49:23 CDT CPT-00957 Abd compl w upright 09:07:26 GRAIN SACKER CPT-92039 Ear Wash 16:12:47 GRAIN SACKER CPT-OV Office Visit 11:12:01 CDT CPT-OV Office Visit 15:30:23 CDT CPT-04605 Sono pelvis non OB uterus ovaries cervix 15:50:44 CDT CPT-10236 Hand comp min 3V 16:42:32 CDT CPT-12296 Abd compl w upright 12:17:01 CDT CPT-05361 Nexplanon Placement 15:07:39 GRAIN SACKER CPT-98153 Removal of IUD 15:07:39 GRAIN SACKER CPT-53699 TB Tubersol 12:09:32 CDT CPT-78907 TB Tubersol 13:55:43 CDT
--- OUTSIDE RECORDS SUMMARY | 2020-03-03 08:23 | XMS REPORT | Clinical Summary ---
Author Author Admin, Diamante Marcelo Organization [facility] Address Unknown Phone Unavailable Allergies, Adverse Reactions, [...] cute pharyngitis Nausea 787.02 Active Brii Larson [employer] Nausea alone URI 465.9 Active Jono Gagnon [...] Anxiety with depression 300.4 Active Glenn Larson [employer] Dysthymic disorder URI 465.9 Active Jono Gagnon [...] MG TAB Take 1 tab BID NAPROXEN 459602367 15 Active Brii Larson APRN Active NEXPLANON IMPL Left arm subcutaneously ETONOGES TREL IMPL 50467066915 Active Brii Larson APRN Active CEFDINIR 300 MG CAPS 1 po BID x 10 days CEFDINI R 44172439807 Active Brii Larson APRN Active PREDNISONE 20 MG TAB 1 tablet daily for airway inflammation 2015 PREDNISONE 69125876864 No Longer Active Brii Larson APRN Active CEFDINIR 300 MG CAPS 1 po BID x 10 days CEFDINI R 68444581156 No Longer Active Jono Gagnon DO Active FLONASE 50 MCG/ACT SUSP 1 spray each nostril twice d aily for allergies and runny nose until gone FLUTICASONE PROPIONATE No Longe r Active Jono Gagnon DO Active ALPRAZOLAM 0.25 MG TAB 1 tablet by mouth every 8 hours as ne eded for stress ALPRAZOLAM 57158813397 No Longer Active Jono Gagnon DO Active ZOLOFT 50 MG TAB 1 tablet by mouth daily SERTRA LINE HCL 41836448685 Active Arie Casper MD Active LOMOTIL 2.5-0.025 MG TAB 1 tab po four times a day as needed for diarrhea DIPHENOXYLATE-ATROPINE 33766149000 Active Brii Larson APRN Active ZITHROMAX Z-EMIL 250 MG TABS 2 today, then 1 daily for 4 days 201 03/31/18 AZITHROMYCIN 37208456219 No Longer Active Arie Casper MD Active PROTONIX 40 MG ORAL TBEC 1 po q a.m. PANTOPRAZO LE SODIUM 92906967380 Active Carline Ochoa RPT,RMA Active PREDNISONE 20 MG TAB 2 tabs daily for 3 days, 1 t ab daily for 3 days, 1/2 tab daily for 2 days PREDNISONE 44565883718 No Longer Active Brii Larson APRN Active PREDNISONE 20 MG TAB 1 tablet twice daily for 2 d ays, then 1 tablet once daily for 2 days PREDNISONE 04156177974 No Longer Active Brii Larson APRN Active PROMETHAZINE HCL 12.5 MG TABS 1 tablet by mouth every 6 hours as needed for nausea/vomiting PROMETHAZINE HCL 43513182357 No Longe r Active Jono Gagnon DO Active CITRATE OF MAGNESIA ORAL SOLN 1 bottle today for constipation 20 07/10/15 MAGNESIUM CITRATE 42228619817 No Longer Active Jono Gagnon DO Active ZOFRAN 4 MG ORAL TABS 1 TAB PO Q 6 HRS PRN NAUSEA 2014 ONDANSETRON HCL 09736285953 No Longer Active Brii Larson APRN A ctive LOMOTIL 2.5-0.025 MG TAB 1 to 2 four times a day as needed f or diarrhea DIPHENOXYLATE-ATROPINE 52455660962 No Longer Active January Larson APRN Active AMOXICILLIN 500 MG TABS 2 tabs twice a day for 10 days AMOXICILLIN 88508448364 No Longer Active Brii Larson APRN Acti ve CYCLOBENZAPRINE HCL 10 MG TABS 1/2 - 1 tablet by mouth three times daily as needed for muscle spasm/pain CYCLOBENZAPRINE HCL 58056929227 No Longer Active Arie Casper MD Active LOMOTIL 2.5-0.025 MG TABS 1 to 2 four times a day as needed for diarrhea DIPHENOXYLATE-ATROPINE 24551877205 No Longer Active D freddy Casper MD Active MACROBID 100 MG CAP 1 cap by mouth twice daily NITROFURANTOIN MONOHYD MACRO 27011336573 No Longer Active Arie Casper MD Active ZYRTEC ALLERGY 10 MG CAPS 1 po qd CETIRIZINE HCL 30833497010 No Longer Active Arie Casper MD Active AZITHROMYCIN 250 MG TABS 2 po qd x 1 day, then 1 po qd x 4 days AZITHROMYCIN 52202209145 No Longer Active Jillisael Frazelanette CABRERA Active PREDNISONE 20 MG TAB 2 tabs daily for 3 days, 1 t ab daily for 3 days, 1/2 tab daily for 2 days PREDNISONE 31964593869 No Longer Active Jillina Frazell RICK Active PROMETHAZINE HCL 25 MG TABS 1 four times a day as needed for vomiting PROMETHAZINE HCL 66435016776 No Longer Active Myrna Roberto MD Active BACTRIM DS 800-160 MG TABS 1 twice a day SULFAMETHOXAZOLE-TRIMETHOPRIM 27779785945 No Longer Active Myrna Roberto MD Active VICKS DAYQUIL SEVERE COLD/FLU TABS 1 tab every 6 hours prn 12/10 [id number]-APAP TABS 26816521063 No Longer Active Myrna leigh MD Active GUAIFENESIN-CODEINE 100-10 MG/5ML ORAL SYRP 2 tsp every 6 hours prn GUAIFENESIN-CODEINE 48636274482 No Longer Active Myrna Roberto MD Active NAPROXEN 500 MG TAB one tab PO BID NAPROXEN 332 97405275 No Longer Active Myrna Roberto MD Active AUGMENTIN 875-125 MG TAB 1 tab by mouth twice daily with food 20 08/12/16 AMOXICILLIN-POT CLAVULANATE 49272901840 No Longer Active Liliana Estrada MD PhD Active AMOXICILLIN 500 MG CAP 1 tab by mouth 3 times daily 08/12/16 AMOXICILLIN 26766912349 No Longer Active Liliana Estrada MD PhD Acti ve TESSALON PERLES 100 MG CAP 1 tablet by mouth 3 times daily 11/01 BENZONATATE 19427694784 No Longer Active Liliana Estrada MD PhD Active FLAGYL 500 MG TAB 1 tablet by mouth two times daily 07/11/29 METRONIDAZOLE 40529318731 No Longer Active Nilamnory Weber Active ZITHROMAX 250 MG TAB 2 po today, then 1 po q days 2-5 AZITHROMYCIN 95013048140 No Longer Active Arie Casper MD Acti ve VITAMINS 0.8 MG TABS take 1 tab po qday 08/08 [id number] 98567518894 No Longer Active Arie Casper MD Active IBUPROFEN 800 MG TABS take one po Q 8 hours IBU PROFEN 70749372509 No Longer Active Arie Casper MD Active [facility] TUSSIN COUGH/COLD CF 5-10-100 MG/5ML LIQD 2 teaspoons ev eliud 4 hours [id number] 93013506098 No Longer Active Blaine Casper MD Active COMTREX COLD/COUGH DAY/NITE MS 5-2-10-325 MG MISC 2 caps deja ry 4 hours [id number] 18775877515 No Longer Active Landon Casper MD Active CHLORASEPTIC MAX SORE THROAT 15-10 MG LOZG 1 every 2 hours prn 2 BENZOCAINE-MENTHOL 04300091945 No Longer Active Arie Marcelo Active PREDNISONE 20 MG TAB 2 tabs daily for 3 days, 1 t ab daily for 3 days, 1/2 tab daily for 2 days PREDNISONE 06607078466 No Longer Active Jose Zhong MD Active AZITHROMYCIN 250 MG TABS 2 po qd x 1 day, then 1 po qd x 4 days AZITHROMYCIN 45397298589 No Longer Active Jose Zhong MD Active ZOFRAN ODT 4 MG TBDP 1 po q6hr PRN Nausea ONDAN SETRON 41545007000 No Longer Active Rich Rosales MD Active ZOFRAN 4 MG TABS 1 tablet every 4 hours ONDANSE JERRELL HCL 48223438115 No Longer Active Rich Rosales MD Active MUCINEX 600 MG [id number] Take 1-2 tablets every 12 hours GUAIFENESIN 71979339799 No Longer Active Rich Rosales MD Activ e BACTRIM 400-80 MG TABS take one po BID SULFAMETHOXAZOLE-TRIMETHOPRIM 36138767327 No Longer Active Abelardo HERNANDEZ Active AZITHROMYCIN 500 MG TABS 1 PO q day x 6 days AZ ITHROMYCIN 08075700229 No Longer Active Tin HERNANDEZ Active ZITHROMAX 250 MG TAB 2 po today, then 1 po q days 2-5 AZITHROMYCIN 57764061780 No Longer Active Arie Casper MD Acti ve ZITHROMAX 250 MG TAB 2 po today, then 1 po q days 2-5 AZITHROMYCIN 92545892046 No Longer Active Arie Casper MD Acti ve AMOXICILLIN 500 MG CAP 1 tab by mouth 3 times daily 20 09/23/20 AMOXICILLIN 22102931501 No Longer Active Arie Casper MD Acti ve BACTRIM DS 800-160 MG TAB 1 tab by mouth twice daily 2 TRIMETHOPRIM-SULFAMETHOXAZOLE 49886464616 No Longer Active Arie Casper MD Active AMOXICILLIN 500 MG TABS take 1 tab po TID AMOXI CILLIN 40414220922 No Longer Active Arie Casper MD Active BACTRIM DS 800-160 MG TAB 1 tab by mouth twice daily 2 BACTRIM DS 800-160 MG TAB 421573 TRIMETHOPRIM-SULFAMETHOXAZOLE Inac tive MUCINEX 600 MG [id number] Take 1-2 tablets every 12 hours MUCINEX 600 MG [id number]-CAS GUAIFENESIN Inactive ZOFRAN 4 MG TABS 1 tablet every 4 hours ZOFRAN 4 MG TABS 203700 ONDANSETRON HCL Inactive ZOFRAN ODT 4 MG TBDP 1 po q6hr PRN Nausea ZOFRAN ODT 4 MG TBDP 759727 ONDANSETRON Inactive CHLORASEPTIC MAX SORE THROAT 15-10 MG LOZG 1 every 2 hours prn 2 CHLORASEPTIC MAX SORE THROAT 15-10 MG LOZG BENZO ARINA-MENTHOL Inactive COMTREX COLD/COUGH DAY/NITE MS 5-2-10-325 MG MISC 2 caps deja ry 4 hours COMTREX COLD/COUGH DAY/NITE MS 5-2-10-325 MG MIS C [id number] Inactive [facility] TUSSIN COUGH/COLD CF 5-10-100 MG/5ML LIQD 2 teaspoons ev eliud 4 hours [facility] TUSSIN COUGH/COLD CF 5-10-100 MG/5ML LIQD [id number] Inactive IBUPROFEN 800 MG TABS take one po Q 8 hours IBUPROFEN 800 MG TABS IBUPROFEN Inactive VITAMINS 0.8 MG TABS take 1 tab po qday 08/08 VITAMINS 0.8 MG TABS [id number] Inactive TESSALON PERLES 100 MG CAP 1 tablet by mouth 3 times daily 11/01 TESSALON PERLES 100 MG CAP 361173 BENZONATATE Inact zaid AMOXICILLIN 500 MG CAP 1 tab by mouth 3 times daily 08/12/16 AMOXICILLIN 500 MG CAP 691917 AMOXICILLIN Inactive GUAIFENESIN-CODEINE 100-10 MG/5ML ORAL SYRP 2 tsp every 6 hours prn GUAIFENESIN-CODEINE 100-10 MG/5ML ORAL SYRP 650993 GUAIFENESIN-CODEINE Inactive VICKS DAYQUIL SEVERE COLD/FLU TABS 1 tab every 6 hours prn 12/10 VICKS DAYQUIL SEVERE COLD/FLU TABS PHENYLEPHRINE -DM-GG-APAP TABS Inactive BACTRIM DS 800-160 MG TABS 1 twice a day BACTRIM DS 800- 160 MG TABS 634681 SULFAMETHOXAZOLE-TRIMETHOPRIM Inactive PROMETHAZINE HCL 25 MG TABS 1 four times a day as needed for vomiting PROMETHAZINE HCL 25 MG TABS 328725 PROMETHAZINE HCL Inactive ZYRTEC ALLERGY 10 MG CAPS 1 po qd ZY RTEC ALLERGY 10 MG CAPS CETIRIZINE HCL Inactive MACROBID 100 MG CAP 1 cap by mouth twice daily MACROBID 100 MG CAP 0225554 NITROFURANTOIN MONOHYD MACRO Inactive LOMOTIL 2.5-0.025 MG TABS 1 to 2 four times a day as needed for diarrhea LOMOTIL 2.5-0.025 MG TABS 5610964 DIPHENOXYLATE-A TROPINE Inactive CYCLOBENZAPRINE HCL 10 MG TABS 1/2 - 1 tablet by mouth three times daily as needed for muscle spasm/pain CYCLOBENZAP RINE HCL 10 MG TABS 755043 CYCLOBENZAPRINE HCL Inactive AMOXICILLIN 500 MG TABS 2 tabs twice a day for 10 days AMOXICILLIN 500 MG TABS 348187 AMOXICILLIN Inactive LOMOTIL 2.5-0.025 MG TAB 1 to 2 four times a day as needed f or diarrhea LOMOTIL 2.5-0.025 MG TAB 6851629 DIPHENOXYLATE-AT ROPINE Inactive ZOFRAN 4 MG ORAL TABS 1 TAB PO Q 6 HRS PRN NAUSEA 2014 ZOFRAN 4 MG ORAL TABS 514563 ONDANSETRON HCL Inactive CITRATE OF MAGNESIA ORAL SOLN 1 bottle today for constipation 20 07/10/15 CITRATE OF MAGNESIA ORAL SOLN 4644633 MAGNESIUM CITRATE Inactive PROMETHAZINE HCL 12.5 MG TABS 1 tablet by mouth every 6 hours as needed for nausea/vomiting PROMETHAZINE HCL 12.5 MG TABS 372860 PROMETHAZINE HCL Inactive PREDNISONE 20 MG TAB 1 tablet twice daily for 2 d ays, then 1 tablet once daily for 2 days PREDNISONE 20 MG TAB 410637 PREDNISONE Inac tive ALPRAZOLAM 0.25 MG TAB 1 tablet by mouth every 8 hours as ne eded for stress ALPRAZOLAM 0.25 MG TAB 287935 ALPRAZOLAM Inact zaid FLONASE 50 MCG/ACT SUSP 1 spray each nostril twice d aily for allergies and runny nose until gone FLONASE 50 MCG/ACT SUSP F LUTICASONE PROPIONATE Inactive PREDNISONE 20 MG TAB 1 tablet daily for airway inflammation 2015 PREDNISONE 20 MG TAB 393882 PREDNISONE Inactive AMOXICILLIN 500 MG TABS take 1 tab po TID AMOXICILLIN 500 MG TABS 514927 AMOXICILLIN Inactive AMOXICILLIN 500 MG CAP 1 tab by mouth 3 times daily 09/23/20 AMOXICILLIN 500 MG CAP 973876 AMOXICILLIN Inactive ZITHROMAX 250 MG TAB 2 po today, then 1 po q days 2-5 ZITHROMAX 250 MG TAB 0382677 AZITHROMYCIN Inactive ZITHROMAX 250 MG TAB 2 po today, then 1 po q days 2-5 ZITHROMAX 250 MG TAB 1228584 AZITHROMYCIN Inactive AZITHROMYCIN 500 MG TABS 1 PO q day x 6 days 3 AZITHROMYCIN 500 MG TABS 8012181 AZITHROMYCIN Inactive BACTRIM 400-80 MG TABS take one po BID BA CTRIM 400-80 MG TABS 646720 SULFAMETHOXAZOLE-TRIMETHOPRIM Inactive AZITHROMYCIN 250 MG TABS 2 po qd x 1 day, then 1 po qd x 4 days AZITHROMYCIN 250 MG TABS 6139281 AZITHROMYCIN Inactiv e PREDNISONE 20 MG TAB 2 tabs daily for 3 days, 1 t ab daily for 3 days, 1/2 tab daily for 2 days PREDNISONE 20 MG TAB 377644 PREDNISON E Inactive ZITHROMAX 250 MG TAB 2 po today, then 1 po q days 2-5 ZITHROMAX 250 MG TAB 6150384 AZITHROMYCIN Inactive FLAGYL 500 MG TAB 1 tablet by mouth two times daily 07/11/29 FLAGYL 500 MG TAB 076131 METRONIDAZOLE Inactive AUGMENTIN 875-125 MG TAB 1 tab by mouth twice daily with food 20 08/12/16 AUGMENTIN 875-125 MG TAB 499332 AMOXICILLIN-POT CLAVULA ANGELO Inactive NAPROXEN 500 MG TAB one tab PO BID NAPROXEN 500 MG TAB 066018 NAPROXEN Inactive PREDNISONE 20 MG TAB 2 tabs daily for 3 days, 1 t ab daily for 3 days, 1/2 tab daily for 2 days PREDNISONE 20 MG TAB 236093 PREDNISON E Inactive AZITHROMYCIN 250 MG TABS 2 po qd x 1 day, then 1 po qd x 4 days AZITHROMYCIN 250 MG TABS 2047783 AZITHROMYCIN Inactiv e PREDNISONE 20 MG TAB 2 tabs daily for 3 days, 1 t ab daily for 3 days, 1/2 tab daily for 2 days PREDNISONE 20 MG TAB 117244 PREDNISON E Inactive ZITHROMAX Z-EMIL 250 MG TABS 2 today, then 1 daily for 4 days 201 03/31/18 ZITHROMAX Z-EMIL 250 MG TABS 3037837 AZITHROMYCIN Inac tive CEFDINIR 300 MG CAPS 1 po BID x 10 days C EFDINIR 300 MG CAPS 402186 CEFDINIR Inactive Advance Directives Directive Description Start [...] Panel - Chemistry sodium, serum 136 mmol/L 974-058 7671/04/26 carbon dioxide, venous blood 29.9 mmol/L 21.0-32 [...] count 284 10^3/MM^3 10*3/mm3 142-424 Lab Report: UHCG, UADIP W/MICRO, AUTO - [...] Negative Encounters Code Encounter Date Provider Facility CPT-58208 Level 3 Est. Patient 09:24:42 CDT Steve CABRERA [facility] CPT-57042 Level 3 Est. Patient 09:12:56 CDT Arie mcqueen MD [facility] CPT-30040 Level 3 Est. Patient 16:40:54 CDT Jose Zhong MD [facility] CPT-38580 Level 2 Est. Patient 13:01:13 CDT Steve CABRERA [facility] CPT-37646 Level 3 Est. Patient 11:55:30 NOVELTY MAKER Jono black DO [facility] CPT-31631 Level 3 Est. Patient 09:52:36 NOVELTY MAKER Steve CABRERA [facility] [place][note 2]-31582 Level 3 Est. Patient 16:25:33 NOVELTY MAKER Rich Rosales MD [facility] CPT-76974 Level 3 Est. Patient 20:33:55 CDT Arie mcqueen MD [facility] [place][note 2]-68771 Level 3 Est. Patient 14:18:20 CDT Rich Rosales MD [facility] CPT-10635 Level 4 Est. Patient 09:34:31 CDT Arie mcqueen MD [facility]-75817 Level 3 Est. Patient 09:08:55 NOVELTY MAKER Liliana vincent MD PhD [facility] CPT-73349 Level 3 Est. Patient 16:44:07 NOVELTY MAKER Arie mcqueen MD [facility] [place][note 2]-33457 Level 3 Est. Patient 10:44:27 CDT Arie mcqueen MD [facility] [place][note 2]-29418 Level 3 Est. Patient 08:55:41 CDT Jose Zhong MD [facility] CPT-88740 Level 3 Est. Patient 18:37:31 CDT Liliana vincent MD PhD [facility] CPT-02022 Level 3 Est. Patient 14:28:23 CDT Abelardo HERNANDEZ [facility] CPT-95270 Level 3 Est. Patient 15:18:13 NOVELTY MAKER Arie mcqueen MD [facility] [place][note 2]-55073 Level 3 Est. Patient 10:11:29 NOVELTY MAKER Arie mcqueen MD [facility] CPT-65667 Level 3 Est. Patient 10:55:57 NOVELTY MAKER Jono Cheema ee DO [facility] CPT-44862 Level 3 Est. Patient 17:29:05 CDT Arie mcqueen MD [facility] Procedures Code Procedure Name Date Entry Date Standard Desc ription CPT-61685 UA w micro - LAB USE ONLY 16:04:56 NOVELTY MAKER 2015 CPT-70543 Wet Prep/GEN - LAB USE ONLY 16:04:56 NOVELTY MAKER 20 08/10/29 CPT-69004 First Vx - Ix admin via ID I M or jet injects without counseling by physician 16:57:10 CDT CPT-48104 Fluzone Preservative Free Intramuscular Suspension 16:57:10 CDT CPT-J0696 Rocephin 1000 mg (Ceftriaxone) 11:49:23 CDT CPT-J1040 Depo Medrol 80 mg (Methyl Prednisolone A cetate) 11:49:23 CDT CPT-J1100 Decadron 8mg (Dexamethasone) 11:49:23 CDT 2 CPT-20454 Abx/Therapy Injection 11:49:23 CDT CPT-27617 Abx/Therapy Injection 11:49:23 CDT CPT-74469 Abd compl w upright 09:07:26 NOVELTY MAKER CPT-26008 Ear Wash 16:12:47 NOVELTY MAKER CPT-OV Office Visit 11:12:01 CDT CPT-OV Office Visit 15:30:23 CDT CPT-90980 Sono pelvis non OB uterus ovaries cervix 15:50:44 CDT CPT-14930 Hand comp min 3V 16:42:32 CDT CPT-85901 Abd compl w upright 12:17:01 CDT CPT-46988 Nexplanon Placement 15:07:39 NOVELTY MAKER CPT-00358 Removal of IUD 15:07:39 NOVELTY MAKER CPT-33274 TB Tubersol 12:09:32 CDT CPT-68840 TB Tubersol 13:55:43 CDT
--- OUTSIDE RECORDS SUMMARY | 2020-03-03 08:23 | XMS REPORT | Clinical Summary ---
Author Author Admin, Diamante Marcelo Organization [facility] Address Unknown Phone Unavailable Allergies, Adverse Reactions, [...] cute pharyngitis Nausea 787.02 Active Brii Larson BIOMEDICAL EQUIPMENT TECH Nausea alone URI 465.9 Active Jono Gagnon DO Acu te upper respiratory infections of unspecified site Allergic rhinitis 477.9 Active Brii Christianson PRN Allergic rhinitis, cause unspecified Abdominal pain, right lower quadrant 789.03 Active Jose Zhong MD Abdominal pain, right lower quadrant Urinary frequency 788.41 Inactive Roseann Crawford Urinary frequency Urinary frequency 788.41 Active 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, RIGHT OF WAY AGENT Urinary frequency Sinusitis - acute 461.9 Active Brii Christianson PRN Acute sinusitis, unspecified Anxiety with depression 300.4 Active Glenn Larson BIOMEDICAL EQUIPMENT TECH Dysthymic disorder URI 465.9 Active Jono Gagnon DO Acu te upper respiratory infections of unspecified site Vaginal bleeding 623.8 Active Brii MARROQUIN RN Other specified noninflammatory disorders of vagina High risk sexual behavior V69.2 Active Arie Casper MD High-risk sexual behavior GERD 530.81 Active Arie Casper MD Esophageal reflux Encounter for surveillance of implantable subdermal contraceptiv e Active Brii Larson BIOMEDICAL EQUIPMENT TECH Vaginal bleeding 623.8 Active Arie Casper MD [...] 4 hours as needed for cough GUAIFENESIN-CODEINE 68150935501 Active Blaine Casper MD Active ZITHROMAX Z-EMIL 250 MG ORAL TABLET 2 today, then 1 daily for 4 d ays AZITHROMYCIN 43301973924 No Longer Active Arie Casper MD Active PROTONIX 40 MG ORAL TABLET DELAYED RELEASE 1 po q a.m. PANTOPRAZOLE SODIUM 17698728445 No Longer Active Arie Casper MD Active BACTRIM DS 800-160 MG ORAL TABLET 1 tab by mouth twice daily 201 05/02/30 TRIMETHOPRIM-SULFAMETHOXAZOLE 19981624252 No Longer Active R [facility] Active NEXPLANON IMPLANT right arm subcutaneously ETONOGESTREL IMPL 80809156574 No Longer Active Brii Larson APRN Acti ve TUSSIONEX PENNKINETIC ER 10-8 MG/5ML ORAL SUSPENSION E XTENDED RELEASE 5ml po q12hr PRN Cough HYDROCOD POLST-CHLORPHEN POLST 5 0826953163 No Longer Active Brii Larson APRN Active CETIRIZINE HCL 10 MG ORAL TABLET 1 po qd PRN Allergies CETIRIZINE HCL 93321179261 No Longer Active Brii Larson APRN Ac tive PREDNISONE 20 MG ORAL TABLET 2 tabs daily for 3 days, 1 tab daily for 3 days, 1/2 tab daily for 2 days PREDNISONE 16920401050 No Longer Active Arie Casper MD Active LOMOTIL 2.5-0.025 MG ORAL TABLET 1 tab po four times a day as needed for diarrhea DIPHENOXYLATE-ATROPINE 93122118878 No Lo nger Active Arie Casper MD Active ZOLOFT 50 MG ORAL TABLET 1 tablet by mouth daily 12/08 SERTRALINE HCL 33543832990 No Longer Active Arie Casper MD Ac tive NAPROXEN 500 MG ORAL TABLET Take 1 tab BID NAPR OXEN 92567010436 No Longer Active Arie Casper MD Active CEFDINIR 300 MG ORAL CAPSULE 1 po BID x 10 days CEFDINIR 23669867920 No Longer Active Brii Larson APRN Active PREDNISONE 20 MG ORAL TABLET 1 tablet daily for airway inflammat ion PREDNISONE 81684787043 No Longer Active Brii Larson APRN Active CEFDINIR 300 MG ORAL CAPSULE 1 po BID x 10 days CEFDINIR 62169076860 No Longer Active Jono Gagnon DO Active FLONASE 50 MCG/ACT NASAL SUSPENSION 1 spray each nostr il twice daily for allergies and runny nose until gone FLUT ICASONE PROPIONATE 85911270675 No Longer Active Jono Gagnon DO Active ALPRAZOLAM 0.25 MG ORAL TABLET 1 tablet by mouth every 8 hours as needed for stress ALPRAZOLAM 09844423002 No Longer Active Jono Gagnon DO Active ZITHROMAX Z-EMIL 250 MG ORAL TABLET 2 today, then 1 daily for 4 d ays AZITHROMYCIN 09513666755 No Longer Active Arie Casper MD Active PREDNISONE 20 MG ORAL TABLET 2 tabs daily for 3 days, 1 tab daily for 3 days, 1/2 tab daily for 2 days PREDNISONE 48326241641 No Longer Active Brii Larson APRN Active PREDNISONE 20 MG ORAL TABLET 1 tablet twice daily for 2 days, then 1 tablet once daily for 2 days PREDNISONE 60792021480 No Longer Active Brii Larson APRN Active PROMETHAZINE HCL 12.5 MG ORAL TABLET 1 tablet by mouth every 6 hours as needed for nausea/vomiting PROMETHAZINE HCL 35590587497 No L onger Active Jono Gagnon DO Active CITRATE OF MAGNESIA ORAL SOLUTION 1 bottle today for constipatio n MAGNESIUM CITRATE 27448206593 No Longer Active Jono Gagnon DO Active ZOFRAN 4 MG ORAL TABLET 1 TAB PO Q 6 HRS PRN NAUSEA 20 07/10/15 ONDANSETRON HCL 69461985268 No Longer Active Brii Larson APRN A ctive LOMOTIL 2.5-0.025 MG ORAL TABLET 1 to 2 four times a day as needed for diarrhea DIPHENOXYLATE-ATROPINE 41235986025 No Longer Active January Larson APRN Active AMOXICILLIN 500 MG ORAL TABLET 2 tabs twice a day for 10 days 20 07/09/11 AMOXICILLIN 13045513939 No Longer Active Brii Larson APRN Active CYCLOBENZAPRINE HCL 10 MG ORAL TABLET 1/2 - 1 tablet b y mouth three times daily as needed for muscle spasm/pain CYCLOBENZAPRINE HCL 20781948395 No Longer Active Arie Casper MD Active LOMOTIL 2.5-0.025 MG ORAL TABLET 1 to 2 four times a day as needed for diarrhea DIPHENOXYLATE-ATROPINE 80291386575 No Longer Active Fozia Casper MD Active MACROBID 100 MG ORAL CAPSULE 1 cap by mouth twice daily NITROFURANTOIN MONOHYD MACRO 25516147541 No Longer Active Arie Casper MD Active ZYRTEC ALLERGY 10 MG ORAL CAPSULE 1 po qd CE TIRIZINE HCL 12273914585 No Longer Active Arie Casper MD Active AZITHROMYCIN 250 MG ORAL TABLET 2 po qd x 1 day, then 1 po q d x 4 days AZITHROMYCIN 66064164212 No Longer Active Jillina Fra naomi BIOMEDICAL EQUIPMENT TECH Active PREDNISONE 20 MG ORAL TABLET 2 tabs daily for 3 days, 1 tab daily for 3 days, 1/2 tab daily for 2 days PREDNISONE 25706990733 No Longer Active Jillina Fradeepl BIOMEDICAL EQUIPMENT TECH Active PROMETHAZINE HCL 25 MG ORAL TABLET 1 four times a day as nee ded for vomiting PROMETHAZINE HCL 72351918437 No Longer Active Myrna Roberto MD Active BACTRIM DS 800-160 MG ORAL TABLET 1 twice a day 05/30 SULFAMETHOXAZOLE-TRIMETHOPRIM 13953005629 No Longer Active Myrna Roberto MD Active VICKS DAYQUIL SEVERE COLD/FLU TABLET 1 tab every 6 hours prn 201 02/22/17 [id number] TABS 15857249426 No Longer Active Chris Roberto MD Active GUAIFENESIN-CODEINE 100-10 MG/5ML ORAL SYRUP 2 tsp every 6 hours prn GUAIFENESIN-CODEINE 51179559479 No Longer Active Myrna Roberto MD Active NAPROXEN 500 MG ORAL TABLET one tab PO BID NAPR OXEN 63453840104 No Longer Active Myrna Roberto MD Active AUGMENTIN 875-125 MG ORAL TABLET 1 tab by mouth twice daily with food AMOXICILLIN-POT CLAVULANATE 90685688868 No Longer Act zaid Liliana Estrada MD PhD Active AMOXICILLIN 500 MG ORAL CAPSULE 1 tab by mouth 3 times daily 201 02/21/05 AMOXICILLIN 72883193036 No Longer Active Liliana Estrada MD PhD Active TESSALON PERLES 100 MG ORAL CAPSULE 1 tablet by mouth 3 times da cory BENZONATATE 49224567607 No Longer Active Liliana Estrada MD PhD Active FLAGYL 500 MG ORAL TABLET 1 tablet by mouth two times daily 2014 METRONIDAZOLE 58381072480 No Longer Active Nilam Doran tive ZITHROMAX 250 MG ORAL TABLET 2 po today, then 1 po q days 2-5 20 06/08/16 AZITHROMYCIN 51199971485 No Longer Active Arie Casper MD Active VITAMINS 0.8 MG ORAL TABLET take 1 tab po qday [id number] 57471478317 No Longer Active Arie Casper MD Active IBUPROFEN 800 MG ORAL TABLET take one po Q 8 hours 201 02/01/16 IBUPROFEN 78418415101 No Longer Active Arie Casper MD Acti ve [facility] TUSSIN COUGH/COLD CF 5-10-100 MG/5ML ORAL LIQUID 2 teasp oons every 4 hours [id number] 73095592925 No Longer Active Blaine Casper MD Active COMTREX COLD/COUGH DAY/NITE MS 5-2-10-325 MG ORAL 2 caps deja ry 4 hours [id number] 09000287104 No Longer Active Landon Casper MD Active CHLORASEPTIC MAX SORE THROAT 15-10 MG MOUTH/THROAT LOZENGE 1 every 2 hours prn BENZOCAINE-MENTHOL 07570602387 No Longer Active Arie Casper MD Active PREDNISONE 20 MG ORAL TABLET 2 tabs daily for 3 days, 1 tab daily for 3 days, 1/2 tab daily for 2 days PREDNISONE 45302688594 No Longer Active Jose Zhong MD Active AZITHROMYCIN 250 MG ORAL TABLET 2 po qd x 1 day, then 1 po q d x 4 days AZITHROMYCIN 73225798484 No Longer Active Jose Mcwilliams MD Active ZOFRAN ODT 4 MG ORAL TABLET DISINTEGRATING 1 po q6hr PRN Nausea ONDANSETRON 11485888486 No Longer Active Rich Rosales MD Active ZOFRAN 4 MG ORAL TABLET 1 tablet every 4 hours ONDANSETRON HCL 80523261477 No Longer Active Rich Rosales MD Activ e MUCINEX 600 MG ORAL TABLET EXTENDED RELEASE 12 HOUR Ta ke 1-2 tablets every 12 hours GUAIFENESIN 20296013244 No Longer Active Rich Rosales MD Active BACTRIM 400-80 MG ORAL TABLET take one po BID SULFAMETHOXAZOLE-TRIMETHOPRIM 22960278032 No Longer Active Abelardo HERNANDEZ Active AZITHROMYCIN 500 MG ORAL TABLET 1 PO q day x 6 days 20 03/02/23 AZITHROMYCIN 21763392545 No Longer Active Tin HERNANDEZ Activ e ZITHROMAX 250 MG ORAL TABLET 2 po today, then 1 po q days 2-5 20 10/03/08 AZITHROMYCIN 53564714939 No Longer Active Arie Casper MD Active ZITHROMAX 250 MG ORAL TABLET 2 po today, then 1 po q days 2-5 20 09/23/25 AZITHROMYCIN 46167807870 No Longer Active Arie Casper MD Active AMOXICILLIN 500 MG ORAL CAPSULE 1 tab by mouth 3 times daily 201 11/24/09 AMOXICILLIN 44680549369 No Longer Active Arie Casper MD Active BACTRIM DS 800-160 MG ORAL TABLET 1 tab by mouth twice daily 201 11/03/14 TRIMETHOPRIM-SULFAMETHOXAZOLE 79621909970 No Longer Active Fozia Casper MD Active AMOXICILLIN 500 MG ORAL TABLET take 1 tab po TID 08/05 AMOXICILLIN 57365651670 No Longer Active Arie Casper MD Acti ve BACTRIM DS 800-160 MG ORAL TABLET 1 tab by mouth twice daily 201 11/03/14 BACTRIM DS 800-160 MG ORAL TABLET 824694 TRIMETHOPRIM-SULFAMETHOXAZOLE Inactive MUCINEX 600 MG ORAL TABLET EXTENDED RELEASE 12 HOUR Ta ke 1-2 tablets every 12 hours MUCINEX 600 MG ORAL TABLET EXTENDED RELEA SE 12 HOUR GUAIFENESIN Inactive ZOFRAN 4 MG ORAL TABLET 1 tablet every 4 hours ZOFRAN 4 MG ORAL TABLET 095304 ONDANSETRON HCL Inactive ZOFRAN ODT 4 MG ORAL TABLET DISINTEGRATING 1 po q6hr PRN Nausea ZOFRAN ODT 4 MG ORAL TABLET DISINTEGRATING 576194 ONDAN SETRON Inactive CHLORASEPTIC MAX SORE THROAT 15-10 MG MOUTH/THROAT LOZENGE 1 every 2 hours prn CHLORASEPTIC MAX SORE THROAT 15-10 MG MOUTH/THROAT LOZENGE BENZOCAINE-MENTHOL Inactive COMTREX COLD/COUGH DAY/NITE MS 5-2-10-325 MG ORAL 2 caps deja ry 4 hours COMTREX COLD/COUGH DAY/NITE MS 5-2-10-325 MG ORA L [id number] Inactive [facility] TUSSIN COUGH/COLD CF 5-10-100 MG/5ML ORAL LIQUID 2 teasp oons every 4 hours [facility] TUSSIN COUGH/COLD CF 5-10-100 MG/5ML ORAL LI QUID [id number] Inactive IBUPROFEN 800 MG ORAL TABLET take one po Q 8 hours 201 02/01/16 IBUPROFEN 800 MG ORAL TABLET IBUPROFEN Inactive VITAMINS 0.8 MG ORAL TABLET take 1 tab po qday VITAMINS 0.8 MG ORAL TABLET [id number] E-FA Inactive TESSALON PERLES 100 MG ORAL CAPSULE 1 tablet by mouth 3 times da cory TESSALON PERLES 100 MG ORAL CAPSULE 118371 BENZONATATE Inactive AMOXICILLIN 500 MG ORAL CAPSULE 1 tab by mouth 3 times daily 201 02/21/05 AMOXICILLIN 500 MG ORAL CAPSULE 281258 AMOXICILLIN Inactive GUAIFENESIN-CODEINE 100-10 MG/5ML ORAL SYRUP 2 tsp every 6 hours prn GUAIFENESIN-CODEINE 100-10 MG/5ML ORAL SYRUP 753454 GUAIFENESIN-CODEINE Inactive VICKS DAYQUIL SEVERE COLD/FLU TABLET 1 tab every 6 hours prn 201 02/22/17 VICKS DAYQUIL SEVERE COLD/FLU TABLET PHENYLEPHRI [id number] TABS Inactive BACTRIM DS 800-160 MG ORAL TABLET 1 twice a day 05/30 BACTRIM DS 800-160 MG ORAL TABLET 976061 SULFAMETHOXAZOLE-TRIMETHOPRIM Inactiv e PROMETHAZINE HCL 25 MG ORAL TABLET 1 four times a day as nee ded for vomiting PROMETHAZINE HCL 25 MG ORAL TABLET 757561 PROMETHAZINE HCL Inactive ZYRTEC ALLERGY 10 MG ORAL CAPSULE 1 po qd ZYRTEC ALLERGY 10 MG ORAL CAPSULE CETIRIZINE HCL Inactive MACROBID 100 MG ORAL CAPSULE 1 cap by mouth twice daily MACROBID 100 MG ORAL CAPSULE 8947830 NITROFURANTOIN MONOHYD MACRO In active LOMOTIL 2.5-0.025 MG ORAL TABLET 1 to 2 four times a day as needed for diarrhea LOMOTIL 2.5-0.025 MG ORAL TABLET 0003385 DIPHENOXYLATE-ATROPINE Inactive CYCLOBENZAPRINE HCL 10 MG ORAL TABLET 1/2 - 1 tablet b y mouth three times daily as needed for muscle spasm/pain CYCLOBEN ZAPRINE HCL 10 MG ORAL TABLET 026666 CYCLOBENZAPRINE HCL Inactive AMOXICILLIN 500 MG ORAL TABLET 2 tabs twice a day for 10 days 07/09/11 AMOXICILLIN 500 MG ORAL TABLET 364477 AMOXICILLIN I nactive LOMOTIL 2.5-0.025 MG ORAL TABLET 1 to 2 four times a day as needed for diarrhea LOMOTIL 2.5-0.025 MG ORAL TABLET 5725938 DIPHENOXYLATE-ATROPINE Inactive ZOFRAN 4 MG ORAL TABLET 1 TAB PO Q 6 HRS PRN NAUSEA 07/10/15 ZOFRAN 4 MG ORAL TABLET 946005 ONDANSETRON HCL Inactive CITRATE OF MAGNESIA ORAL SOLUTION 1 bottle today for constipatio n CITRATE OF MAGNESIA ORAL SOLUTION 0682570 MAGNESIUM CITR ATE Inactive PROMETHAZINE HCL 12.5 MG ORAL TABLET 1 tablet by mouth every 6 hours as needed for nausea/vomiting PROMETHAZINE HCL 12.5 MG ORA L TABLET 324666 PROMETHAZINE HCL Inactive PREDNISONE 20 MG ORAL TABLET 1 tablet twice daily for 2 days, then 1 tablet once daily for 2 days PREDNISONE 20 MG ORAL TABLET 497648 PREDNISONE Inactive ALPRAZOLAM 0.25 MG ORAL TABLET 1 tablet by mouth every 8 hours as needed for stress ALPRAZOLAM 0.25 MG ORAL TABLET 741635 ALPRA ZOLAM Inactive FLONASE 50 MCG/ACT NASAL SUSPENSION 1 spray each nostr il twice daily for allergies and runny nose until gone FLON ASE 50 MCG/ACT NASAL SUSPENSION 7730155 FLUTICASONE PROPIONATE Inactive PREDNISONE 20 MG ORAL TABLET 1 tablet daily for airway inflammat ion PREDNISONE 20 MG ORAL TABLET 734587 PREDNISONE Inez ctive NAPROXEN 500 MG ORAL TABLET Take 1 tab BID NAPROXEN 500 MG ORAL TABLET 456176 NAPROXEN Inactive ZOLOFT 50 MG ORAL TABLET 1 tablet by mouth daily 12/08 ZOLOFT 50 MG ORAL TABLET 170086 SERTRALINE HCL Inactive LOMOTIL 2.5-0.025 MG ORAL TABLET 1 tab po four times a day as needed for diarrhea LOMOTIL 2.5-0.025 MG ORAL TABLET 0435006 DIPHENOXYLATE-ATROPINE Inactive CETIRIZINE HCL 10 MG ORAL TABLET 1 po qd PRN Allergies CETIRIZINE HCL 10 MG ORAL TABLET 4234118 CETIRIZINE HCL Inactiv e TUSSIONEX PENNKINETIC ER 10-8 MG/5ML ORAL SUSPENSION E XTENDED RELEASE 5ml po q12hr PRN Cough TUSSIONEX PENNKINETI C ER 10-8 MG/5ML ORAL SUSPENSION EXTENDED RELEASE HYDROCOD POLST-CHLORPHEN POLST I nactive NEXPLANON IMPLANT right arm subcutaneously NEXPLANON IMPLANT ETONOGESTREL IMPL Inactive PROTONIX 40 MG ORAL TABLET DELAYED RELEASE 1 po q a.m. PROTONIX 40 MG ORAL TABLET DELAYED RELEASE 365712 PANTOPRAZOLE SODI UM Inactive AMOXICILLIN 500 MG ORAL TABLET take 1 tab po TID 08/05 AMOXICILLIN 500 MG ORAL TABLET 462974 AMOXICILLIN Inactive AMOXICILLIN 500 MG ORAL CAPSULE 1 tab by mouth 3 times daily 201 11/24/09 AMOXICILLIN 500 MG ORAL CAPSULE 876892 AMOXICILLIN Inactive ZITHROMAX 250 MG ORAL TABLET 2 po today, then 1 po q days 2-5 20 09/23/25 ZITHROMAX 250 MG ORAL TABLET 402866 AZITHROMYCIN Arlen ctive ZITHROMAX 250 MG ORAL TABLET 2 po today, then 1 po q days 2-5 20 10/03/08 ZITHROMAX 250 MG ORAL TABLET 423123 AZITHROMYCIN Inez ctive AZITHROMYCIN 500 MG ORAL TABLET 1 PO q day x 6 days 20 03/02/23 AZITHROMYCIN 500 MG ORAL TABLET 4635762 AZITHROMYCIN Inactive BACTRIM 400-80 MG ORAL TABLET take one po BID BACTRIM 400- 80 MG ORAL TABLET 343581 SULFAMETHOXAZOLE-TRIMETHOPRIM Inactive AZITHROMYCIN 250 MG ORAL TABLET 2 po qd x 1 day, then 1 po q d x 4 days AZITHROMYCIN 250 MG ORAL TABLET 960269 AZITHROMY ALLISON Inactive PREDNISONE 20 MG ORAL TABLET 2 tabs daily for 3 days, 1 tab daily for 3 days, 1/2 tab daily for 2 days PREDNISONE 20 MG ORAL T ABLET 210752 PREDNISONE Inactive ZITHROMAX 250 MG ORAL TABLET 2 po today, then 1 po q days 2-5 20 06/08/16 ZITHROMAX 250 MG ORAL TABLET 549717 AZITHROMYCIN Arlen ctive FLAGYL 500 MG ORAL TABLET 1 tablet by mouth two times daily 2014 FLAGYL 500 MG ORAL TABLET 065356 METRONIDAZOLE Inacti ve AUGMENTIN 875-125 MG ORAL TABLET 1 tab by mouth twice daily with food AUGMENTIN 875-125 MG ORAL TABLET 005172 AMOXICIL ELSA-POT CLAVULANATE Inactive NAPROXEN 500 MG ORAL TABLET one tab PO BID NAPROXEN 500 MG ORAL TABLET 108627 NAPROXEN Inactive PREDNISONE 20 MG ORAL TABLET 2 tabs daily for 3 days, 1 tab daily for 3 days, 1/2 tab daily for 2 days PREDNISONE 20 MG ORAL T ABLET 760278 PREDNISONE Inactive AZITHROMYCIN 250 MG ORAL TABLET 2 po qd x 1 day, then 1 po q d x 4 days AZITHROMYCIN 250 MG ORAL TABLET 302621 AZITHROMY ALLISON Inactive PREDNISONE 20 MG ORAL TABLET 2 tabs daily for 3 days, 1 tab daily for 3 days, 1/2 tab daily for 2 days PREDNISONE 20 MG ORAL T ABLET 322498 PREDNISONE Inactive ZITHROMAX Z-EMIL 250 MG ORAL TABLET 2 today, then 1 daily for 4 d ays ZITHROMAX Z-EMIL 250 MG ORAL TABLET 287019 AZITHROMYCIN Inactive CEFDINIR 300 MG ORAL CAPSULE 1 po BID x 10 days 12/18 CEFDINIR 300 MG ORAL CAPSULE 857669 CEFDINIR Inactive CEFDINIR 300 MG ORAL CAPSULE 1 po BID x 10 days CEFDINIR 300 MG ORAL CAPSULE 20030127 CEFDINIR Inactive PREDNISONE 20 MG ORAL TABLET 2 tabs daily for 3 days, 1 tab daily for 3 days, 1/2 tab daily for 2 days PREDNISONE 20 MG ORAL T ABLET 380771 PREDNISONE Inactive BACTRIM DS 800-160 MG ORAL TABLET 1 tab by mouth twice daily 201 05/02/30 BACTRIM DS 800-160 MG ORAL TABLET 591300 TRIMETHOPRIM-SULFAMETHOXAZOLE Inactive ZITHROMAX Z-EMIL 250 MG ORAL TABLET 2 today, then 1 daily for 4 d ays ZITHROMAX Z-EMIL 250 MG ORAL TABLET 681892 AZITHROMYCIN Inactive Advance Directives Directive Description Start [...] Range Description Lab Report: CBC, [place] [facility] [place] leukocyte count, blood 7.8 [...] 263 10^3/MM^3 10*3/mm3 142-424 Lab Report: Chlamydia/GC APTIMA/[id number] - Lab chlamydia DNA probe NOT DETECTED NOT DETECTED Lab Report: Chlamydia/GC [facility]TIMA/[id number] - Microbiology Neisseria gonorrhoeae DNA probe NOT [...] 5.0-8.5 Encounters Code Encounter Date Provider Facility CPT-21036 Level 3 Est. Patient 10:21:41 HEALTHCARE MARKETER Arie mcqueen MD [facility] CPT-46937 Level 3 Est. Patient 11:35:15 HEALTHCARE MARKETER Arie mcqueen MD [facility] CPT-02532 Level 3 Est. Patient 15:40:28 CDT Steve BIOMEDICAL EQUIPMENT TECH [facility] CPT-76987 Level 3 Est. Patient 16:40:36 CDT Arie mcqueen MD [facility] CPT-16436 Level 4 Est. Patient 15:29:22 HEALTHCARE MARKETER Arie mcqueen MD [facility]-11320 Level 3 Est. Patient 15:18:16 HEALTHCARE MARKETER Jono black [facility] CPT-86876 Level 4 Est. Patient 12:08:40 HEALTHCARE MARKETER Steve BIOMEDICAL EQUIPMENT TECH [facility] CPT-78471 Level 3 Est. Patient 09:24:42 CDT [facility] CPT-91760 Level 3 Est. Patient 09:12:56 CDT Arie mcqueen MD [facility] CPT-20394 Level 3 Est. Patient 16:40:54 CDT Jose Zhong MD [facility] CPT-60103 Level 2 Est. Patient 13:01:13 CDT Steve BIOMEDICAL EQUIPMENT TECH [facility] CPT-14145 Level 3 Est. Patient 11:55:30 HEALTHCARE MARKETER Jono black [facility] CPT-99567 Level 3 Est. Patient 09:52:36 HEALTHCARE MARKETER Steve BIOMEDICAL EQUIPMENT TECH [facility] CPT-99242 Level 3 Est. Patient 16:25:33 HEALTHCARE MARKETER Rich Rosales MD [facility] CPT-19744 Level 3 Est. Patient 20:33:55 CDT Arie mcqueen MD [facility] CPT-34927 Level 3 Est. Patient 14:18:20 CDT Rich Rosales MD [facility] CPT-33468 Level 4 Est. Patient 09:34:31 CDT Arie mcqueen MD [facility] CPT-60966 Level 3 Est. Patient 09:08:55 HEALTHCARE MARKETER Liliana vincent MD PhD [facility] CPT-45847 Level 3 Est. Patient 16:44:07 HEALTHCARE MARKETER Arie mcqueen MD [facility] CPT-63618 Level 3 Est. Patient 10:44:27 CDT Arie mcqueen MD [facility] CPT-89280 Level 3 Est. Patient 08:55:41 CDT Jose Zhong MD [facility] CPT-34579 Level 3 Est. Patient 18:37:31 CDT Liliana vincent MD PhD [facility] CPT-16648 Level 3 Est. Patient 14:28:23 CDT Abelardo HERNANDEZ [facility] CPT-70350 Level 3 Est. Patient 15:18:13 HEALTHCARE MARKETER Arie mcqueen MD [facility] CPT-24906 Level 3 Est. Patient 10:11:29 HEALTHCARE MARKETER Arie mcqueen MD [facility] CPT-24944 Level 3 Est. Patient 10:55:57 HEALTHCARE MARKETER Jono black DO [facility] CPT-97496 Level 3 Est. Patient 17:29:05 CDT Arie mcqueen MD [facility] Procedures Code Procedure Name Date Entry Date Standard Desc ription CPT-67203 Nexplanon Removal 15:40:28 CDT CPT-91797 Sono transvag pelvis non OB uterus ovari es cervix - XRAY USE ONLY 08:58:14 HEALTHCARE MARKETER CPT-84302 UA w micro - LAB USE ONLY 16:04:56 HEALTHCARE MARKETER 2015 CPT-98620 Wet Prep/GEN - LAB USE ONLY 16:04:56 HEALTHCARE MARKETER 20 08/10/29 CPT-09803 First Vx - Ix admin via ID I M or jet injects without counseling by physician 16:57:10 CDT CPT-23586 Fluzone Preservative Free Intramuscular Suspension 16:57:10 CDT CPT-J0696 Rocephin 1000 mg (Ceftriaxone) 11:49:23 CDT CPT-J1040 Depo Medrol 80 mg (Methyl Prednisolone A cetate) 11:49:23 CDT CPT-J1100 Decadron 8mg (Dexamethasone) 11:49:23 CDT 2 CPT-49333 Abx/Therapy Injection 11:49:23 CDT CPT-33573 Abx/Therapy Injection 11:49:23 CDT CPT-73938 Abd compl w upright 09:07:26 HEALTHCARE MARKETER CPT-56281 Ear Wash 16:12:47 HEALTHCARE MARKETER CPT-OV Office Visit 11:12:01 CDT CPT-OV Office Visit 15:30:23 CDT CPT-69396 Sono pelvis non OB uterus ovaries cervix 15:50:44 CDT CPT-75818 Hand comp min 3V 16:42:32 CDT CPT-02902 Abd compl w upright 12:17:01 CDT CPT-53265 Nexplanon Placement 15:07:39 HEALTHCARE MARKETER CPT-34075 Removal of IUD 15:07:39 HEALTHCARE MARKETER CPT-65254 TB Tubersol 12:09:32 CDT CPT-21508 TB Tubersol 13:55:43 CDT
--- OUTSIDE RECORDS SUMMARY | 2020-03-03 08:24 | XMS REPORT | Clinical Summary ---
Author Author Admin, Diamante Marcelo Organization [employer] Address Unknown Phone Unavailable Allergies, Adverse Reactions, [...] cute pharyngitis Nausea 787.02 Active Brii Larson NUCLEAR TECHNOLOGIST Nausea alone URI 465.9 Active Jono [...] Anxiety with depression 300.4 Active Glenn Larson NUCLEAR TECHNOLOGIST Dysthymic disorder BREAST CANCER ICD-V16.3 Inactive Jose [...] tablet by mouth daily SERTRA LINE HCL 98164035893 Active Brii Larson APRN Active LOMOTIL 2.5-0.025 MG TAB 1 tab po four times a day as needed for diarrhea DIPHENOXYLATE-ATROPINE 52132109029 Active Brii Larson APRN Active ZITHROMAX Z-EMIL 250 MG TABS 2 today, then 1 daily for 4 days 201 03/31/18 AZITHROMYCIN 59239811217 No Longer Active Arie Casper MD Active ALPRAZOLAM 0.25 MG TAB 1 tablet by mouth every 8 hours as ne eded for stress ALPRAZOLAM 77492059511 Active Brii Larson APRN Active PROTONIX 40 MG ORAL TBEC 1 po q a.m. PANTOPRAZO LE SODIUM 32412152668 Active Carline Ochoa RPT,RMA Active PREDNISONE 20 MG TAB 2 tabs daily for 3 days, 1 t ab daily for 3 days, /2 tab daily for 2 days PREDNISONE 37900737444 No Longer Active Brii Larson APRN Active PREDNISONE 20 MG TAB 1 tablet twice daily for 2 d ays, then 1 tablet once daily for 2 days PREDNISONE 42350609401 No Longer Active Brii Larson APRN Active FLONASE 50 MCG/ACT SUSP 1 spray each nostril twice d aily for allergies and runny nose until gone FLUTICASONE PROPIONATE Active Jono Gagnon DO Active PROMETHAZINE HCL 12.5 MG TABS 1 tablet by mouth every 6 hours as needed for nausea/vomiting PROMETHAZINE HCL 17138967294 No Longe r Active Jono Gagnon DO Active CITRATE OF MAGNESIA ORAL SOLN 1 bottle today for constipation 20 07/10/15 MAGNESIUM CITRATE 02601514743 No Longer Active Jono Gagnon DO Active ZOFRAN 4 MG ORAL TABS 1 TAB PO Q 6 HRS PRN NAUSEA 2014 ONDANSETRON HCL 78413267957 No Longer Active Brii Larson APRN A ctive LOMOTIL 2.5-0.025 MG TAB 1 to 2 four times a day as needed f or diarrhea DIPHENOXYLATE-ATROPINE 58336855829 No Longer Active January Larson APRN Active AMOXICILLIN 500 MG TABS 2 tabs twice a day for 10 days AMOXICILLIN 48286717166 No Longer Active Brii Larson APRN Acti ve NEXPLANON IMPL ETONOGESTREL IMPL 21775782014 Active Rich Rosales MD Active CYCLOBENZAPRINE HCL 10 MG TABS 1/2 - 1 tablet by mouth three times daily as needed for muscle spasm/pain CYCLOBENZAPRINE HCL 70459270166 No Longer Active Arie Casper MD Active LOMOTIL 2.5-0.025 MG TABS 1 to 2 four times a day as needed for diarrhea DIPHENOXYLATE-ATROPINE 72448088394 No Longer Active Mason Casper MD Active MACROBID 100 MG CAP 1 cap by mouth twice daily NITROFURANTOIN MONOHYD MACRO 95326934372 No Longer Active Arie Casper MD Active ZYRTEC ALLERGY 10 MG CAPS 1 po qd CETIRIZINE HCL 60842574572 No Longer Active Arie Casper MD Active AZITHROMYCIN 250 MG TABS 2 po qd x 1 day, then 1 po qd x 4 days AZITHROMYCIN 81806098529 No Longer Active Jillina Frazell NUCLEAR TECHNOLOGIST Active PREDNISONE 20 MG TAB 2 tabs daily for 3 days, 1 t ab daily for 3 days, 1/2 tab daily for 2 days PREDNISONE 58198246758 No Longer Active Jillina Frazell NUCLEAR TECHNOLOGIST Active PROMETHAZINE HCL 25 MG TABS 1 four times a day as needed for vomiting PROMETHAZINE HCL 20046459256 No Longer Active Myrna Roberto MD Active BACTRIM DS 800-160 MG TABS 1 twice a day SULFAMETHOXAZOLE-TRIMETHOPRIM 19880482238 No Longer Active Myrna Roberto MD Active VICKS DAYQUIL SEVERE COLD/FLU TABS 1 tab every 6 hours prn 12/10 [id number] TABS 52471266148 No Longer Active Myrna leigh MD Active GUAIFENESIN-CODEINE 100-10 MG/5ML ORAL SYRP 2 tsp every 6 hours prn GUAIFENESIN-CODEINE 76450499569 No Longer Active Myrna Roberto MD Active NAPROXEN 500 MG TAB one tab PO BID NAPROXEN 332 20319695 No Longer Active Myrna Roberto MD Active AUGMENTIN 875-125 MG TAB 1 tab by mouth twice daily with food 08/12/16 AMOXICILLIN-POT CLAVULANATE 88956755610 No Longer Active Liliana Estrada MD [facility] Active AMOXICILLIN 500 MG CAP 1 tab by mouth 3 times daily 08/12/16 AMOXICILLIN 48884891380 No Longer Active Liliana Estrada MD PhD Acti ve TESSALON PERLES 100 MG CAP 1 tablet by mouth 3 times daily 11/01 BENZONATATE 02067202349 No Longer Active Liliana Estrada MD PhD Active FLAGYL 500 MG TAB 1 tablet by mouth two times daily 20 07/11/29 METRONIDAZOLE 49203790025 No Longer Active Nilam Weber Active ZITHROMAX 250 MG TAB 2 po today, then 1 po q days 2-5 AZITHROMYCIN 00038894307 No Longer Active Arie Casper MD Acti ve VITAMINS 0.8 MG TABS take 1 tab po qday 08/08 [id number] 74372043828 No Longer Active Arie Casper MD Active IBUPROFEN 800 MG TABS take one po Q 8 hours IBU PROFEN 38917082833 No Longer Active Arie Casper MD Active [facility] TUSSIN COUGH/COLD CF 5-10-100 MG/5ML LIQD 2 teaspoons ev eliud 4 hours [id number] 08143018290 No Longer Active Blaine Casper MD Active COMTREX COLD/COUGH DAY/NITE MS 5-2-10-325 MG MISC 2 caps deja ry 4 hours [id number] 06668146785 No Longer Active Da vimason Casper MD Active CHLORASEPTIC MAX SORE THROAT 15-10 MG LOZG 1 every 2 hours prn 2 BENZOCAINE-MENTHOL 34163346037 No Longer Active Arie Marcelo Active PREDNISONE 20 MG TAB 2 tabs daily for 3 days, 1 t ab daily for 3 days, 1/2 tab daily for 2 days PREDNISONE 85574647117 No Longer Active Jose Zhong MD Active AZITHROMYCIN 250 MG TABS 2 po qd x 1 day, then 1 po qd x 4 days AZITHROMYCIN 40181735416 No Longer Active Jose Zhong MD Active ZOFRAN ODT 4 MG TBDP 1 po q6hr PRN Nausea ONDAN SETRON 86264729823 No Longer Active Rich Rosales MD Active ZOFRAN 4 MG TABS 1 tablet every 4 hours ONDANSE JERRELL HCL 51066925782 No Longer Active Rich Rosales MD Active MUCINEX 600 MG [id number] Take 1-2 tablets every 12 hours GUAIFENESIN 42821027670 No Longer Active Rich Rosales MD Activ e BACTRIM 400-80 MG TABS take one po BID SULFAMETHOXAZOLE-TRIMETHOPRIM 14001758090 No Longer Active Abelardo HERNANDEZ Active AZITHROMYCIN 500 MG TABS 1 PO q day x 6 days AZ ITHROMYCIN 23897076394 No Longer Active Tin HERNANDEZ Active ZITHROMAX 250 MG TAB 2 po today, then 1 po q days 2-5 AZITHROMYCIN 98206976606 No Longer Active Arie Casper MD Acti ve ZITHROMAX 250 MG TAB 2 po today, then 1 po q days 2-5 AZITHROMYCIN 52320275749 No Longer Active Arie Casper MD Acti ve AMOXICILLIN 500 MG CAP 1 tab by mouth 3 times daily 20 09/23/20 AMOXICILLIN 10566798351 No Longer Active Arie Casper MD Acti ve BACTRIM DS 800-160 MG TAB 1 tab by mouth twice daily 2 TRIMETHOPRIM-SULFAMETHOXAZOLE 05687247341 No Longer Active Arie Casper MD Active AMOXICILLIN 500 MG TABS take 1 tab po TID AMOXI CILLIN 15754311571 No Longer Active Arie Casper MD Active BACTRIM DS 800-160 MG TAB 1 tab by mouth twice daily 2 BACTRIM DS 800-160 MG TAB 734276 TRIMETHOPRIM-SULFAMETHOXAZOLE Inac tive MUCINEX 600 MG [id number] Take 1-2 tablets every 12 hours MUCINEX 600 MG [id number] GUAIFENESIN Inactive ZOFRAN 4 MG TABS 1 tablet every 4 hours ZOFRAN 4 MG TABS 521101 ONDANSETRON HCL Inactive ZOFRAN ODT 4 MG TBDP 1 po q6hr PRN Nausea ZOFRAN ODT 4 MG TBDP 566937 ONDANSETRON Inactive CHLORASEPTIC MAX SORE THROAT 15-10 MG LOZG 1 every 2 hours prn 2 /04/30 CHLORASEPTIC MAX SORE THROAT 15-10 MG LOZG BENZO ARINA-MENTHOL Inactive COMTREX COLD/COUGH DAY/NITE MS 5-2-10-325 MG MISC 2 caps deja ry 4 hours COMTREX COLD/COUGH DAY/NITE MS 5-2-10-325 MG MIS C [id number] Inactive [facility] TUSSIN COUGH/COLD CF 5-10-100 MG/5ML LIQD 2 teaspoons ev eliud 4 hours [facility] TUSSIN COUGH/COLD CF 5-10-100 MG/5ML LIQD [id number] Inactive IBUPROFEN 800 MG TABS take one po Q 8 hours IBUPROFEN 800 MG TABS 640307 IBUPROFEN Inactive VITAMINS 0.8 MG TABS take 1 tab po qday 08/08 VITAMINS 0.8 MG TABS [id number] Inactive TESSALON PERLES 100 MG CAP 1 tablet by mouth 3 times daily 11/01 TESSALON PERLES 100 MG CAP 506774 BENZONATATE Inact zaid AMOXICILLIN 500 MG CAP 1 tab by mouth 3 times daily 08/12/16 AMOXICILLIN 500 MG CAP 242648 AMOXICILLIN Inactive GUAIFENESIN-CODEINE 100-10 MG/5ML ORAL SYRP 2 tsp every 6 hours prn GUAIFENESIN-CODEINE 100-10 MG/5ML ORAL SYRP 923433 GUAIFENESIN-CODEINE Inactive VICKS DAYQUIL SEVERE COLD/FLU TABS 1 tab every 6 hours prn 12/10 VICKS DAYQUIL SEVERE COLD/FLU TABS PHENYLEPHRINE -DM-GG-APAP TABS Inactive BACTRIM DS 800-160 MG TABS 1 twice a day BACTRIM DS 800- 160 MG TABS 551033 SULFAMETHOXAZOLE-TRIMETHOPRIM Inactive PROMETHAZINE HCL 25 MG TABS 1 four times a day as needed for vomiting PROMETHAZINE HCL 25 MG TABS 432718 PROMETHAZINE HCL Inactive ZYRTEC ALLERGY 10 MG CAPS 1 po qd ZY RTEC ALLERGY 10 MG CAPS CETIRIZINE HCL Inactive MACROBID 100 MG CAP 1 cap by mouth twice daily MACROBID 100 MG CAP 8343762 NITROFURANTOIN MONOHYD MACRO Inactive LOMOTIL 2.5-0.025 MG TABS 1 to 2 four times a day as needed for diarrhea LOMOTIL 2.5-0.025 MG TABS 9891070 DIPHENOXYLATE-A TROPINE Inactive CYCLOBENZAPRINE HCL 10 MG TABS 1/2 - 1 tablet by mouth three times daily as needed for muscle spasm/pain CYCLOBENZAP RINE HCL 10 MG TABS 675085 CYCLOBENZAPRINE HCL Inactive AMOXICILLIN 500 MG TABS 2 tabs twice a day for 10 days AMOXICILLIN 500 MG TABS 877673 AMOXICILLIN Inactive LOMOTIL 2.5-0.025 MG TAB 1 to 2 four times a day as needed f or diarrhea LOMOTIL 2.5-0.025 MG TAB 6983217 DIPHENOXYLATE-AT ROPINE Inactive ZOFRAN 4 MG ORAL TABS 1 TAB PO Q 6 HRS PRN NAUSEA 2014 ZOFRAN 4 MG ORAL TABS 765605 ONDANSETRON HCL Inactive CITRATE OF MAGNESIA ORAL SOLN 1 bottle today for constipation 20 07/10/15 CITRATE OF MAGNESIA ORAL SOLN 5556808 MAGNESIUM CITRATE Inactive PROMETHAZINE HCL 12.5 MG TABS 1 tablet by mouth every 6 hours as needed for nausea/vomiting PROMETHAZINE HCL 12.5 MG TABS 354729 PROMETHAZINE HCL Inactive PREDNISONE 20 MG TAB 1 tablet twice daily for 2 d ays, then 1 tablet once daily for 2 days PREDNISONE 20 MG TAB 457309 PREDNISONE Inac tive AMOXICILLIN 500 MG TABS take 1 tab po TID AMOXICILLIN 500 MG TABS 534388 AMOXICILLIN Inactive AMOXICILLIN 500 MG CAP 1 tab by mouth 3 times daily 09/23/20 AMOXICILLIN 500 MG CAP 324683 AMOXICILLIN Inactive ZITHROMAX 250 MG TAB 2 po today, then 1 po q days 2-5 ZITHROMAX 250 MG TAB 3201351 AZITHROMYCIN Inactive ZITHROMAX 250 MG TAB 2 po today, then 1 po q days 2-5 ZITHROMAX 250 MG TAB 0457549 AZITHROMYCIN Inactive AZITHROMYCIN 500 MG TABS 1 PO q day x 6 days 3 AZITHROMYCIN 500 MG TABS 0921066 AZITHROMYCIN Inactive BACTRIM 400-80 MG TABS take one po BID BA CTRIM 400-80 MG TABS 808960 SULFAMETHOXAZOLE-TRIMETHOPRIM Inactive AZITHROMYCIN 250 MG TABS 2 po qd x 1 day, then 1 po qd x 4 days AZITHROMYCIN 250 MG TABS 9042207 AZITHROMYCIN Inactiv e PREDNISONE 20 MG TAB 2 tabs daily for 3 days, 1 t ab daily for 3 days, 1/2 tab daily for 2 days PREDNISONE 20 MG TAB 291986 PREDNISON E Inactive ZITHROMAX 250 MG TAB 2 po today, then 1 po q days 2-5 ZITHROMAX 250 MG TAB 2909426 AZITHROMYCIN Inactive FLAGYL 500 MG TAB 1 tablet by mouth two times daily 07/11/29 FLAGYL 500 MG TAB 838731 METRONIDAZOLE Inactive AUGMENTIN 875-125 MG TAB 1 tab by mouth twice daily with food 20 08/12/16 AUGMENTIN 875-125 MG TAB 491060 AMOXICILLIN-POT CLAVULA ANGELO Inactive NAPROXEN 500 MG TAB one tab PO BID NAPROXEN 500 MG TAB 133233 NAPROXEN Inactive PREDNISONE 20 MG TAB 2 tabs daily for 3 days, 1 t ab daily for 3 days, 1/2 tab daily for 2 days PREDNISONE 20 MG TAB 780396 PREDNISON E Inactive AZITHROMYCIN 250 MG TABS 2 po qd x 1 day, then 1 po qd x 4 days AZITHROMYCIN 250 MG TABS 5784972 AZITHROMYCIN Inactiv e PREDNISONE 20 MG TAB 2 tabs daily for 3 days, 1 t ab daily for 3 days, 1/2 tab daily for 2 days PREDNISONE 20 MG TAB 421890 PREDNISON E Inactive ZITHROMAX Z-EMIL 250 MG TABS 2 today, then 1 daily for 4 days 201 03/31/18 ZITHROMAX Z-EMIL 250 MG TABS 5394876 AZITHROMYCIN Inac tive Advance Directives Directive Description [...] Panel - Chemistry sodium, serum 136 mmol/L 117-759 7813/04/26 carbon dioxide, venous blood 29.9 mmol/L 21.0-32 [...] - Chem istry sodium, serum 139 mmol/L 500-528 2407/12/15 carbon dioxide, venous blood 30.2 mmol/L 21.0-32 [...] rapid strep method Negative Negative [facility] UAD[facility] W/MICRO, AUTO - Chemistry protein, total urine random Negative mg/dL Negative RBC, urine, dipstick Trace Negative human chorionic gonadotropin , urine, qualitative (urine test) Negative Negative Lab Report[facility] UADIP W/MICRO, AUTO - Urinalysis [...] Negative Encounters Code Encounter Date Provider Facility CPT-22596 Level 3 Est. Patient 09:12:56 CDT Arie mcqueen MD [facility]-33317 Level 3 Est. Patient 16:40:54 CDT Jose Zhong MD [facility] CPT-60535 Level 2 Est. Patient 13:01:13 CDT Steve NUCLEAR TECHNOLOGIST [facility] CPT-26054 Level 3 Est. Patient 11:55:30 LABORATORY TECHNICAL SPECIALIST Jono black DO [facility] CPT-25942 Level 3 Est. Patient 09:52:36 LABORATORY TECHNICAL SPECIALIST Steve NUCLEAR TECHNOLOGIST [facility] CPT-92868 Level 3 Est. Patient 16:25:33 LABORATORY TECHNICAL SPECIALIST Rich Rosales MD [facility] CPT-15332 Level 3 Est. Patient 20:33:55 CDT Arie mcqueen MD [facility] CPT-32759 Level 3 Est. Patient 14:18:20 CDT Rich Rosales MD [facility] CPT-08592 Level 4 Est. Patient 09:34:31 CDT Arie mcqueen MD [facility] CPT-92041 Level 3 Est. Patient 09:08:55 LABORATORY TECHNICAL SPECIALIST Liliana vincent MD PhD [facility]-77042 Level 3 Est. Patient 16:44:07 LABORATORY TECHNICAL SPECIALIST Arie mcqueen MD [facility] CPT-30500 Level 3 Est. Patient 10:44:27 CDT Arie mcqueen MD [facility] CPT-31405 Level 3 Est. Patient 08:55:41 CDT Jose Zhong MD [facility] CPT-28840 Level 3 Est. Patient 18:37:31 CDT Liliana vincent MD PhD [facility] CPT-14609 Level 3 Est. Patient 14:28:23 CDT Abelardo HERNANDEZ [facility] CPT-83709 Level 3 Est. Patient 15:18:13 LABORATORY TECHNICAL SPECIALIST Arie mcqueen MD [facility] CPT-89282 Level 3 Est. Patient 10:11:29 LABORATORY TECHNICAL SPECIALIST Arie mcqueen MD [facility] CPT-27504 Level 3 Est. Patient 10:55:57 LABORATORY TECHNICAL SPECIALIST Jono black DO [facility] CPT-39022 Level 3 Est. Patient 17:29:05 CDT Arie mcqueen MD [facility] Procedures Code Procedure Name Date Entry Date Standard Desc ription CPT-47252 First Vx - Ix admin via ID I M or jet injects without counseling by physician 16:57:10 CDT CPT-91858 Fluzone Preservative Free Intramuscular Suspension 16:57:10 CDT CPT-J0696 Rocephin 1000 mg (Ceftriaxone) 11:49:23 CDT CPT-J1040 Depo Medrol 80 mg (Methyl Prednisolone A cetate) 11:49:23 CDT CPT-J1100 Decadron 8mg (Dexamethasone) 11:49:23 CDT 2 CPT-65424 Abx/Therapy Injection 11:49:23 CDT CPT-24355 Abx/Therapy Injection 11:49:23 CDT CPT-01049 Abd compl w upright 09:07:26 LABORATORY TECHNICAL SPECIALIST CPT-78677 Ear Wash 16:12:47 LABORATORY TECHNICAL SPECIALIST CPT-OV Office Visit 11:12:01 CDT CPT-OV Office Visit 15:30:23 CDT CPT-38820 Sono pelvis non OB uterus ovaries cervix 15:50:44 CDT CPT-79527 Hand comp min 3V 16:42:32 CDT CPT-45365 Abd compl w upright 12:17:01 CDT CPT-48466 Nexplanon Placement 15:07:39 LABORATORY TECHNICAL SPECIALIST CPT-69420 Removal of IUD 15:07:39 LABORATORY TECHNICAL SPECIALIST CPT-38907 TB Tubersol 12:09:32 CDT CPT-46957 TB Tubersol 13:55:43 CDT
--- OUTSIDE RECORDS SUMMARY | 2020-03-03 08:24 | XMS REPORT | Clinical Summary ---
Author Author Admin, Diamante Marcelo Organization Emailage Address Unknown Phone Unavailable Allergies, Adverse Reactions, [...] lower quadrant Urinary frequency 788.41 Inactive Roseann [place] Urinary frequency Urinary frequency 788.41 Resolved Jose [...] implantable subdermal contraceptiv e Active Brii Russ FISHING GUIDE Vaginal bleeding 623.8 Active Arie Casper MD Other specified noninflammatory disorders of vagina Influenza like illness 487.1 Active Jose Mcwilliams MD Influenza with other respiratory manifestations Sinusitis 473.9 Active Jessica Heaton FISHING GUIDE Unspecified sinusitis (chronic) BREAST CANCER ICD-V16.3 Inactive [...] 1 tablet daily for 4 days AZITHROMYCIN 11324506344 Active Rich Marcelo Active GUAIFENESIN DM 400-20 MG ORAL TABLET 1 pill by mouth t wice daily, if needed for cough DEXTROMETHORPHAN-GUAIFENESIN 48489581490 No Longer Active Rich Rosales MD Active TUSSIONEX PENNKINETIC ER 10-8 MG/5ML ORAL SUSPENSION E XTENDED RELEASE 5ml po q12hr PRN Cough HYDROCOD POLST-CHLORPHEN POLST 43824938693 Active Rich Rosales MD Active CEFDINIR 300 MG ORAL CAPSULE 1 po BID x 10 days CEFDINIR 00700702427 No Longer Active Jillina Florina FISHING GUIDE Active CHERATUSSIN AC 100-10 MG/5ML ORAL SYRUP 1 tsp by mouth every 4 hours as needed for cough GUAIFENESIN-CODEINE 22100046334 No Longe r Active Jillina Fradeepl FISHING GUIDE Active TAMIFLU 75 MG ORAL CAPSULE 1 po BID x 5 days 0 OSELTAMIVIR PHOSPHATE 94209486613 No Longer Active Jose Zhong MD Activ e ZITHROMAX Z-EMIL 250 MG ORAL TABLET 2 today, then 1 daily for 4 d ays AZITHROMYCIN 23517051692 No Longer Active Arie Casper MD Active PROTONIX 40 MG ORAL TABLET DELAYED RELEASE 1 po q a.m. PANTOPRAZOLE SODIUM 66976847956 No Longer Active Arie Casper MD Active BACTRIM DS 800-160 MG ORAL TABLET 1 tab by mouth twice daily 201 05/02/30 TRIMETHOPRIM-SULFAMETHOXAZOLE 55225676274 No Longer Active R [facility] Ty Active NEXPLANON IMPLANT right arm subcutaneously ETONOGESTREL IMPL 73353008945 No Longer Active Brii Russ APRN Active TUSSIONEX PENNKINETIC ER 10-8 MG/5ML ORAL SUSPENSION E XTENDED RELEASE 5ml po q12hr PRN Cough HYDROCOD POLST-CHLORPHEN POLST 5 4785492202 No Longer Active Brii Russ APRN Active CETIRIZINE HCL 10 MG ORAL TABLET 1 po qd PRN Allergies CETIRIZINE HCL 27314603711 No Longer Active Brii Russ APRN Activ e PREDNISONE 20 MG ORAL TABLET 2 tabs daily for 3 days, 1 tab daily for 3 days, 1/2 tab daily for 2 days PREDNISONE 40943528478 No Longer Active Arie Casper MD Active LOMOTIL 2.5-0.025 MG ORAL TABLET 1 tab po four times a day as needed for diarrhea DIPHENOXYLATE-ATROPINE 16212683851 No Lo nger Active Arie Casper MD Active ZOLOFT 50 MG ORAL TABLET 1 tablet by mouth daily 12/08 SERTRALINE HCL 70090971470 No Longer Active Arie Casper MD Ac tive NAPROXEN 500 MG ORAL TABLET Take 1 tab BID NAPR OXEN 23173596920 No Longer Active Arie Casper MD Active CEFDINIR 300 MG ORAL CAPSULE 1 po BID x 10 days CEFDINIR 73913573194 No Longer Active Brii Russ APRN Active PREDNISONE 20 MG ORAL TABLET 1 tablet daily for airway inflammat ion PREDNISONE 18597908210 No Longer Active Brii Russ APRN A ctive CEFDINIR 300 MG ORAL CAPSULE 1 po BID x 10 days CEFDINIR 89628101714 No Longer Active Jono Gagnon DO Active FLONASE 50 MCG/ACT NASAL SUSPENSION 1 spray each nostr il twice daily for allergies and runny nose until gone FLUT ICASONE PROPIONATE 02533876524 No Longer Active Jono Gagnon DO Active ALPRAZOLAM 0.25 MG ORAL TABLET 1 tablet by mouth every 8 hours as needed for stress ALPRAZOLAM 42763666915 No Longer Active Jono Gagnon DO Active ZITHROMAX Z-EMIL 250 MG ORAL TABLET 2 today, then 1 daily for 4 d ays AZITHROMYCIN 86524932817 No Longer Active Arie Casper MD Active PREDNISONE 20 MG ORAL TABLET 2 tabs daily for 3 days, 1 tab daily for 3 days, 1/2 tab daily for 2 days PREDNISONE 26978124957 No Longer Active Brii Russ APRN Active PREDNISONE 20 MG ORAL TABLET 1 tablet twice daily for 2 days, then 1 tablet once daily for 2 days PREDNISONE 83076388524 No Longer Active Brii Russ APRN Active PROMETHAZINE HCL 12.5 MG ORAL TABLET 1 tablet by mouth every 6 hours as needed for nausea/vomiting PROMETHAZINE HCL 75907942111 No L onger Active Jono Gagnon DO Active CITRATE OF MAGNESIA ORAL SOLUTION 1 bottle today for constipatio n MAGNESIUM CITRATE 64050180418 No Longer Active Jono Gagnon DO Active ZOFRAN 4 MG ORAL TABLET 1 TAB PO Q 6 HRS PRN NAUSEA 07/10/15 ONDANSETRON HCL 59461214313 No Longer Active Brii Russ APRN Acti ve LOMOTIL 2.5-0.025 MG ORAL TABLET 1 to 2 four times a day as needed for diarrhea DIPHENOXYLATE-ATROPINE 49282792325 No Longer Active January Russ APRN Active AMOXICILLIN 500 MG ORAL TABLET 2 tabs twice a day for 10 days 20 07/09/11 AMOXICILLIN 92281165559 No Longer Active Brii Russ APRN Active CYCLOBENZAPRINE HCL 10 MG ORAL TABLET 1/2 - 1 tablet b y mouth three times daily as needed for muscle spasm/pain CYCLOBENZAPRINE HCL 46473235186 No Longer Active Arie Casper MD Active LOMOTIL 2.5-0.025 MG ORAL TABLET 1 to 2 four times a day as needed for diarrhea DIPHENOXYLATE-ATROPINE 06159447162 No Longer Active Fozia Casper MD Active MACROBID 100 MG ORAL CAPSULE 1 cap by mouth twice daily NITROFURANTOIN MONOHYD MACRO 14978629107 No Longer Active Arie Casper MD Active ZYRTEC ALLERGY 10 MG ORAL CAPSULE 1 po qd CE TIRIZINE HCL 64592292923 No Longer Active Arie Casper MD Active AZITHROMYCIN 250 MG ORAL TABLET 2 po qd x 1 day, then 1 po q d x 4 days AZITHROMYCIN 18648784688 No Longer Active Jillina Fra naomi FISHING GUIDE Active PREDNISONE 20 MG ORAL TABLET 2 tabs daily for 3 days, 1 tab daily for 3 days, 1/2 tab daily for 2 days PREDNISONE 71320009229 No Longer Active Jillina Florina FISHING GUIDE Active PROMETHAZINE HCL 25 MG ORAL TABLET 1 four times a day as nee ded for vomiting PROMETHAZINE HCL 89734259984 No Longer Active Myrna Roberto MD Active BACTRIM DS 800-160 MG ORAL TABLET 1 twice a day 05/30 SULFAMETHOXAZOLE-TRIMETHOPRIM 08564991367 No Longer Active Myrna Roberto MD Active VICKS DAYQUIL SEVERE COLD/FLU TABLET 1 tab every 6 hours prn 201 02/22/17 [id number] TABS 72869657569 No Longer Active Chris Roberto MD Active GUAIFENESIN-CODEINE 100-10 MG/5ML ORAL SYRUP 2 tsp every 6 hours prn GUAIFENESIN-CODEINE 25811195076 No Longer Active Myrna Roberto MD Active NAPROXEN 500 MG ORAL TABLET one tab PO BID NAPR OXEN 11599867476 No Longer Active Myrna Roberto MD Active AUGMENTIN 875-125 MG ORAL TABLET 1 tab by mouth twice daily with food AMOXICILLIN-POT CLAVULANATE 20842536137 No Longer Act zaid Liliana Estrada MD PhD Active AMOXICILLIN 500 MG ORAL CAPSULE 1 tab by mouth 3 times daily 201 02/21/05 AMOXICILLIN 14369564066 No Longer Active Liliana Estrada MD PhD Active TESSALON PERLES 100 MG ORAL CAPSULE 1 tablet by mouth 3 times da cory BENZONATATE 95785719647 No Longer Active Liliana Estrada MD PhD Active FLAGYL 500 MG ORAL TABLET 1 tablet by mouth two times daily 2014 METRONIDAZOLE 58885071255 No Longer Active Nilam Gus Ac tive ZITHROMAX 250 MG ORAL TABLET 2 po today, then 1 po q days 2-5 20 06/08/16 AZITHROMYCIN 80894509823 No Longer Active Arie Casper MD Active VITAMINS 0.8 MG ORAL TABLET take 1 tab po qday [id number] 72071250601 No Longer Active Arie Casper MD Active IBUPROFEN 800 MG ORAL TABLET take one po Q 8 hours 201 02/01/16 IBUPROFEN 51014986900 No Longer Active Arie Casper MD Acti ve [facility] TUSSIN COUGH/COLD CF 5-10-100 MG/5ML ORAL LIQUID 2 teasp oons every 4 hours [id number] 76133768363 No Longer Active Blaine Casper MD Active COMTREX COLD/COUGH DAY/NITE MS 5-2-10-325 MG ORAL 2 caps deja ry 4 hours [id number] 97407650647 No Longer Active Landon Casper MD Active CHLORASEPTIC MAX SORE THROAT 15-10 MG MOUTH/THROAT LOZENGE 1 every 2 hours prn BENZOCAINE-MENTHOL 10569925288 No Longer Active Arie Casper MD Active PREDNISONE 20 MG ORAL TABLET 2 tabs daily for 3 days, 1 tab daily for 3 days, 1/2 tab daily for 2 days PREDNISONE 30179687786 No Longer Active Jose Zhong MD Active AZITHROMYCIN 250 MG ORAL TABLET 2 po qd x 1 day, then 1 po q d x 4 days AZITHROMYCIN 37685076836 No Longer Active Jose Mcwilliams MD Active ZOFRAN ODT 4 MG ORAL TABLET DISINTEGRATING 1 po q6hr PRN Nausea ONDANSETRON 47228327657 No Longer Active Rich Rosales MD Active ZOFRAN 4 MG ORAL TABLET 1 tablet every 4 hours ONDANSETRON HCL 14344374618 No Longer Active Rich Rosales MD Activ e MUCINEX 600 MG ORAL TABLET EXTENDED RELEASE 12 HOUR Ta ke 1-2 tablets every 12 hours GUAIFENESIN 05090968182 No Longer Active Rich Rosales MD Active BACTRIM 400-80 MG ORAL TABLET take one po BID SULFAMETHOXAZOLE-TRIMETHOPRIM 96191984428 No Longer Active Abelardo HERNANDEZ Active AZITHROMYCIN 500 MG ORAL TABLET 1 PO q day x 6 days 20 03/02/23 AZITHROMYCIN 13575817730 No Longer Active Tin HERNANDEZ Activ e ZITHROMAX 250 MG ORAL TABLET 2 po today, then 1 po q days 2-5 20 10/03/08 AZITHROMYCIN 86828574786 No Longer Active Arie Casper MD Active ZITHROMAX 250 MG ORAL TABLET 2 po today, then 1 po q days 2-5 20 09/23/25 AZITHROMYCIN 31025758303 No Longer Active Arie Casper MD Active AMOXICILLIN 500 MG ORAL CAPSULE 1 tab by mouth 3 times daily 201 11/24/09 AMOXICILLIN 64926668704 No Longer Active Arie Casper MD Active BACTRIM DS 800-160 MG ORAL TABLET 1 tab by mouth twice daily 201 11/03/14 TRIMETHOPRIM-SULFAMETHOXAZOLE 85980690532 No Longer Active Fozia Casper MD Active AMOXICILLIN 500 MG ORAL TABLET take 1 tab po TID 08/05 AMOXICILLIN 46620959481 No Longer Active Arie Casper MD Acti ve BACTRIM DS 800-160 MG ORAL TABLET 1 tab by mouth twice daily 201 11/03/14 BACTRIM DS 800-160 MG ORAL TABLET 565872 TRIMETHOPRIM-SULFAMETHOXAZOLE Inactive MUCINEX 600 MG ORAL TABLET EXTENDED RELEASE 12 HOUR Ta ke 1-2 tablets every 12 hours MUCINEX 600 MG ORAL TABLET EXTENDED RELEA SE 12 HOUR GUAIFENESIN Inactive ZOFRAN 4 MG ORAL TABLET 1 tablet every 4 hours ZOFRAN 4 MG ORAL TABLET 857987 ONDANSETRON HCL Inactive ZOFRAN ODT 4 MG ORAL TABLET DISINTEGRATING 1 po q6hr PRN Nausea ZOFRAN ODT 4 MG ORAL TABLET DISINTEGRATING 295638 ONDAN SETRON Inactive CHLORASEPTIC MAX SORE THROAT 15-10 MG MOUTH/THROAT LOZENGE 1 every 2 hours prn CHLORASEPTIC MAX SORE THROAT 15-10 MG MOUTH/THROAT LOZENGE BENZOCAINE-MENTHOL Inactive COMTREX COLD/COUGH DAY/NITE MS 5-2-10-325 MG ORAL 2 caps deja ry 4 hours COMTREX COLD/COUGH DAY/NITE MS 5-2-10-325 MG ORA L [id number] Inactive [facility] TUSSIN COUGH/COLD CF 5-10-100 MG/5ML ORAL LIQUID 2 teasp oons every 4 hours [facility] TUSSIN COUGH/COLD CF 5-10-100 MG/5ML ORAL LI QUID [id number] Inactive IBUPROFEN 800 MG ORAL TABLET take one po Q 8 hours 201 02/01/16 IBUPROFEN 800 MG ORAL TABLET IBUPROFEN Inactive VITAMINS 0.8 MG ORAL TABLET take 1 tab po qday VITAMINS 0.8 MG ORAL TABLET [id number]-FA Inactive TESSALON PERLES 100 MG ORAL CAPSULE 1 tablet by mouth 3 times da cory TESSALON PERLES 100 MG ORAL CAPSULE 211168 BENZONATATE Inactive AMOXICILLIN 500 MG ORAL CAPSULE 1 tab by mouth 3 times daily 201 02/21/05 AMOXICILLIN 500 MG ORAL CAPSULE 986483 AMOXICILLIN Inactive GUAIFENESIN-CODEINE 100-10 MG/5ML ORAL SYRUP 2 tsp every 6 hours prn GUAIFENESIN-CODEINE 100-10 MG/5ML ORAL SYRUP 578306 GUAIFENESIN-CODEINE Inactive VICKS DAYQUIL SEVERE COLD/FLU TABLET 1 tab every 6 hours prn 201 02/22/17 VICKS DAYQUIL SEVERE COLD/FLU TABLET PHENYLEPHRI [id number] TABS Inactive BACTRIM DS 800-160 MG ORAL TABLET 1 twice a day 05/30 BACTRIM DS 800-160 MG ORAL TABLET 514395 SULFAMETHOXAZOLE-TRIMETHOPRIM Inactiv e PROMETHAZINE HCL 25 MG ORAL TABLET 1 four times a day as nee ded for vomiting PROMETHAZINE HCL 25 MG ORAL TABLET 005655 PROMETHAZINE HCL Inactive ZYRTEC ALLERGY 10 MG ORAL CAPSULE 1 po qd ZYRTEC ALLERGY 10 MG ORAL CAPSULE CETIRIZINE HCL Inactive MACROBID 100 MG ORAL CAPSULE 1 cap by mouth twice daily MACROBID 100 MG ORAL CAPSULE 0846653 NITROFURANTOIN MONOHYD MACRO In active LOMOTIL 2.5-0.025 MG ORAL TABLET 1 to 2 four times a day as needed for diarrhea LOMOTIL 2.5-0.025 MG ORAL TABLET 7466799 DIPHENOXYLATE-ATROPINE Inactive CYCLOBENZAPRINE HCL 10 MG ORAL TABLET 1/2 - 1 tablet b y mouth three times daily as needed for muscle spasm/pain CYCLOBEN ZAPRINE HCL 10 MG ORAL TABLET 396919 CYCLOBENZAPRINE HCL Inactive AMOXICILLIN 500 MG ORAL TABLET 2 tabs twice a day for 10 days 20 07/09/11 AMOXICILLIN 500 MG ORAL TABLET 544097 AMOXICILLIN I nactive LOMOTIL 2.5-0.025 MG ORAL TABLET 1 to 2 four times a day as needed for diarrhea LOMOTIL 2.5-0.025 MG ORAL TABLET 2372185 DIPHENOXYLATE-ATROPINE Inactive ZOFRAN 4 MG ORAL TABLET 1 TAB PO Q 6 HRS PRN NAUSEA 20 07/10/15 ZOFRAN 4 MG ORAL TABLET 992623 ONDANSETRON HCL Inactive CITRATE OF MAGNESIA ORAL SOLUTION 1 bottle today for constipatio n CITRATE OF MAGNESIA ORAL SOLUTION 0815209 MAGNESIUM CITR ATE Inactive PROMETHAZINE HCL 12.5 MG ORAL TABLET 1 tablet by mouth every 6 hours as needed for nausea/vomiting PROMETHAZINE HCL 12.5 MG ORA L TABLET 054206 PROMETHAZINE HCL Inactive PREDNISONE 20 MG ORAL TABLET 1 tablet twice daily for 2 days, then 1 tablet once daily for 2 days PREDNISONE 20 MG ORAL TABLET 208355 PREDNISONE Inactive ALPRAZOLAM 0.25 MG ORAL TABLET 1 tablet by mouth every 8 hours as needed for stress ALPRAZOLAM 0.25 MG ORAL TABLET 666890 ALPRA ZOLAM Inactive FLONASE 50 MCG/ACT NASAL SUSPENSION 1 spray each nostr il twice daily for allergies and runny nose until gone FLON ASE 50 MCG/ACT NASAL SUSPENSION 0603514 FLUTICASONE PROPIONATE Inactive PREDNISONE 20 MG ORAL TABLET 1 tablet daily for airway inflammat ion PREDNISONE 20 MG ORAL TABLET 125803 PREDNISONE Arlen ctive NAPROXEN 500 MG ORAL TABLET Take 1 tab BID NAPROXEN 500 MG ORAL TABLET 848642 NAPROXEN Inactive ZOLOFT 50 MG ORAL TABLET 1 tablet by mouth daily 12/08 ZOLOFT 50 MG ORAL TABLET 396525 SERTRALINE HCL Inactive LOMOTIL 2.5-0.025 MG ORAL TABLET 1 tab po four times a day as needed for diarrhea LOMOTIL 2.5-0.025 MG ORAL TABLET 9130654 DIPHENOXYLATE-ATROPINE Inactive CETIRIZINE HCL 10 MG ORAL TABLET 1 po qd PRN Allergies CETIRIZINE HCL 10 MG ORAL TABLET 2907279 CETIRIZINE HCL Inactiv e TUSSIONEX PENNKINETIC ER 10-8 MG/5ML ORAL SUSPENSION E XTENDED RELEASE 5ml po q12hr PRN Cough TUSSIONEX PENNKINETI C ER 10-8 MG/5ML ORAL SUSPENSION EXTENDED RELEASE HYDROCOD POLST-CHLORPHEN POLST I nactive NEXPLANON IMPLANT right arm subcutaneously NEXPLANON IMPLANT ETONOGESTREL IMPL Inactive PROTONIX 40 MG ORAL TABLET DELAYED RELEASE 1 po q a.m. PROTONIX 40 MG ORAL TABLET DELAYED RELEASE 301811 PANTOPRAZOLE SODI UM Inactive CHERATUSSIN AC 100-10 MG/5ML ORAL SYRUP 1 tsp by mouth every 4 hours as needed for cough CHERATUSSIN AC 100-10 MG/5ML ORAL SYRUP 9 48825 GUAIFENESIN-CODEINE Inactive GUAIFENESIN DM 400-20 MG ORAL TABLET 1 pill by mouth t wice daily, if needed for cough GUAIFENESIN DM 400-20 MG ORAL TABLET 1147 685 DEXTROMETHORPHAN-GUAIFENESIN Inactive AMOXICILLIN 500 MG ORAL TABLET take 1 tab po TID 08/05 AMOXICILLIN 500 MG ORAL TABLET 588321 AMOXICILLIN Inactive AMOXICILLIN 500 MG ORAL CAPSULE 1 tab by mouth 3 times daily 201 11/24/09 AMOXICILLIN 500 MG ORAL CAPSULE 243407 AMOXICILLIN Inactive ZITHROMAX 250 MG ORAL TABLET 2 po today, then 1 po q days 2-5 20 09/23/25 ZITHROMAX 250 MG ORAL TABLET 088911 AZITHROMYCIN [place]lock ctive ZITHROMAX 250 MG ORAL TABLET 2 po today, then 1 po q days 2-5 20 10/03/08 ZITHROMAX 250 MG ORAL TABLET 054946 AZITHROMYCIN [place]lock ctive AZITHROMYCIN 500 MG ORAL TABLET 1 PO q day x 6 days 20 03/02/23 AZITHROMYCIN 500 MG ORAL TABLET 8027123 AZITHROMYCIN Inactive BACTRIM 400-80 MG ORAL TABLET take one po BID BACTRIM 400- 80 MG ORAL TABLET 044820 SULFAMETHOXAZOLE-TRIMETHOPRIM Inactive AZITHROMYCIN 250 MG ORAL TABLET 2 po qd x 1 day, then 1 po q d x 4 days AZITHROMYCIN 250 MG ORAL TABLET 707985 AZITHROMY ALLISON Inactive PREDNISONE 20 MG ORAL TABLET 2 tabs daily for 3 days, 1 tab daily for 3 days, 1/2 tab daily for 2 days PREDNISONE 20 MG ORAL T ABLET 785649 PREDNISONE Inactive ZITHROMAX 250 MG ORAL TABLET 2 po today, then 1 po q days 2-5 20 06/08/16 ZITHROMAX 250 MG ORAL TABLET 978499 AZITHROMYCIN Arlen ctive FLAGYL 500 MG ORAL TABLET 1 tablet by mouth two times daily 2014 FLAGYL 500 MG ORAL TABLET 095881 METRONIDAZOLE Inacti ve AUGMENTIN 875-125 MG ORAL TABLET 1 tab by mouth twice daily with food AUGMENTIN 875-125 MG ORAL TABLET 372958 AMOXICIL ELSA-POT CLAVULANATE Inactive NAPROXEN 500 MG ORAL TABLET one tab PO BID NAPROXEN 500 MG ORAL TABLET 907520 NAPROXEN Inactive PREDNISONE 20 MG ORAL TABLET 2 tabs daily for 3 days, 1 tab daily for 3 days, 1/2 tab daily for 2 days PREDNISONE 20 MG ORAL T ABLET 712454 PREDNISONE Inactive AZITHROMYCIN 250 MG ORAL TABLET 2 po qd x 1 day, then 1 po q d x 4 days AZITHROMYCIN 250 MG ORAL TABLET 567724 AZITHROMY ALLISON Inactive PREDNISONE 20 MG ORAL TABLET 2 tabs daily for 3 days, 1 tab daily for 3 days, 1/2 tab daily for 2 days PREDNISONE 20 MG ORAL T ABLET 756610 PREDNISONE Inactive ZITHROMAX Z-EMIL 250 MG ORAL TABLET 2 today, then 1 daily for 4 d ays ZITHROMAX Z-EMIL 250 MG ORAL TABLET 051318 AZITHROMYCIN Inactive CEFDINIR 300 MG ORAL CAPSULE 1 po BID x 10 days 12/18 CEFDINIR 300 MG ORAL CAPSULE 402881 CEFDINIR Inactive CEFDINIR 300 MG ORAL CAPSULE 1 po BID x 10 days CEFDINIR 300 MG ORAL CAPSULE 20030127 CEFDINIR Inactive PREDNISONE 20 MG ORAL TABLET 2 tabs daily for 3 days, 1 tab daily for 3 days, 1/2 tab daily for 2 days PREDNISONE 20 MG ORAL T ABLET 998934 PREDNISONE Inactive BACTRIM DS 800-160 MG ORAL TABLET 1 tab by mouth twice daily 201 05/02/30 BACTRIM DS 800-160 MG ORAL TABLET 909975 TRIMETHOPRIM-SULFAMETHOXAZOLE Inactive ZITHROMAX Z-EMIL 250 MG ORAL TABLET 2 today, then 1 daily for 4 d ays ZITHROMAX Z-EMIL 250 MG ORAL TABLET 252271 AZITHROMYCIN Inactive TAMIFLU 75 MG ORAL CAPSULE 1 po BID x 5 days 0 TAMIFLU 75 MG ORAL CAPSULE 069255 OSELTAMIVIR PHOSPHATE Inactive CEFDINIR 300 MG ORAL [...] Unit Range Description Lab Report: CBC, [facility] leukocyte count, blood 7.8 10^3/MM^3 [...] 5.0-8.5 Encounters Code Encounter Date Provider Facility CPT-14283 Level 3 Est. Patient 11:49:34 ORDNANCE ENGINEER Jessica boyd [facility] CPT-37184 Level 3 Est. Patient 14:55:50 ORDNANCE ENGINEER Jose Zhong MD [facility] CPT-63855 Level 3 Est. Patient 10:21:41 ORDNANCE ENGINEER Arie mcqueen MD [facility] CPT-32106 Level 3 Est. Patient 11:35:15 ORDNANCE ENGINEER Arie mcqueen MD [facility] CPT-74546 Level 3 Est. Patient 15:40:28 CDT Brii Are ll [facility] CPT-58183 Level 3 Est. Patient 16:40:36 CDT Arie mcqueen MD [facility] CPT-95644 Level 4 Est. Patient 15:29:22 ORDNANCE ENGINEER Arie mcqueen MD [facility] CPT-67247 Level 3 Est. Patient 15:18:16 ORDNANCE ENGINEER Jono black [facility] CPT-36236 Level 4 Est. Patient 12:08:40 ORDNANCE ENGINEER Brii Are ll [facility] CPT-06095 Level 3 Est. Patient 09:24:42 CDT Brii Are ll [facility] CPT-70769 Level 3 Est. Patient 09:12:56 CDT Arie mcqueen MD [facility] CPT-90733 Level 3 Est. Patient 16:40:54 CDT Jose Zhong MD [facility] CPT-50170 Level 2 Est. Patient 13:01:13 CDT Brii Are ll [facility] CPT-88670 Level 3 Est. Patient 11:55:30 ORDNANCE ENGINEER Jono black [facility] CPT-36798 Level 3 Est. Patient 09:52:36 ORDNANCE ENGINEER Brii Are ll FISHING GUIDE [facility] CPT-36610 Level 3 Est. Patient 16:25:33 ORDNANCE ENGINEER Rich Rosales MD [facility] CPT-51023 Level 3 Est. Patient 20:33:55 CDT Arie mcqueen MD [facility] CPT-55240 Level 3 Est. Patient 14:18:20 CDT Rich Rosales MD [facility] CPT-80564 Level 4 Est. Patient 09:34:31 CDT Arie mcqueen MD [facility] CPT-58335 Level 3 Est. Patient 09:08:55 ORDNANCE ENGINEER Liliana vincent MD PhD [facility] CPT-52666 Level 3 Est. Patient 16:44:07 ORDNANCE ENGINEER Arie mcqueen MD [facility] CPT-69346 Level 3 Est. Patient 10:44:27 CDT Arie mcqueen MD [facility] CPT-83971 Level 3 Est. Patient 08:55:41 CDT Jose Zhong MD [facility] CPT-83032 Level 3 Est. Patient 18:37:31 CDT Liliana vincent MD [facility] CPT-22009 Level 3 Est. Patient 14:28:23 CDT Abelardo HERNANDEZ [facility] CPT-53652 Level 3 Est. Patient 15:18:13 ORDNANCE ENGINEER Arie mcqueen MD [facility] CPT-63570 Level 3 Est. Patient 10:11:29 ORDNANCE ENGINEER Arie mcqueen MD [facility] CPT-28170 Level 3 Est. Patient 10:55:57 ORDNANCE ENGINEER Jono black DO [facility] CPT-39826 Level 3 Est. Patient 17:29:05 CDT Arie mcqueen MD [facility] Procedures Code Procedure Name Date Entry Date Standard Desc ription CPT-88067 Nexplanon Removal 15:40:28 CDT CPT-89069 Sono transvag pelvis non OB uterus ovari es cervix - XRAY USE ONLY 08:58:14 ORDNANCE ENGINEER CPT-84403 UA w micro - LAB USE ONLY 16:04:56 ORDNANCE ENGINEER 2015 CPT-00829 Wet Prep/GEN - LAB USE ONLY 16:04:56 ORDNANCE ENGINEER 20 08/10/29 CPT-39098 First Vx - Ix admin via ID I M or jet injects without counseling by physician 16:57:10 CDT CPT-07728 Fluzone Preservative Free Intramuscular Suspension 16:57:10 CDT CPT-J0696 Rocephin 1000 mg (Ceftriaxone) 11:49:23 CDT CPT-J1040 Depo Medrol 80 mg (Methyl Prednisolone A cetate) 11:49:23 CDT CPT-J1100 Decadron 8mg (Dexamethasone) 11:49:23 CDT 2 CPT-38021 Abx/Therapy Injection 11:49:23 CDT CPT-13960 Abx/Therapy Injection 11:49:23 CDT CPT-53070 Abd compl w upright 09:07:26 ORDNANCE ENGINEER CPT-41683 Ear Wash 16:12:47 ORDNANCE ENGINEER CPT-OV Office Visit 11:12:01 CDT CPT-OV Office Visit 15:30:23 CDT CPT-75026 Sono pelvis non OB uterus ovaries cervix 15:50:44 CDT CPT-82275 Hand comp min 3V 16:42:32 CDT CPT-32575 Abd compl w upright 12:17:01 CDT CPT-16486 Nexplanon Placement 15:07:39 ORDNANCE ENGINEER CPT-56547 Removal of IUD 15:07:39 ORDNANCE ENGINEER CPT-40787 TB Tubersol 12:09:32 CDT CPT-74080 TB Tubersol 13:55:43 CDT
--- OUTSIDE RECORDS SUMMARY | 2020-03-03 08:24 | XMS REPORT | Clinical Summary ---
Author Author Admin, Diamante Marcelo Organization 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 Nausea alone URI 465.9 Active Jono Gagnon DO Acu te upper respiratory infections of unspecified site Allergic rhinitis 477.9 Active Brii Christianson PRN Allergic rhinitis, cause unspecified Abdominal pain, right lower quadrant 789.03 Active Jose Zhong MD Abdominal pain, right lower quadrant Urinary frequency 788.41 Inactive Roseann Crawford Urinary frequency Urinary frequency 788.41 Active 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, 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 Urinary frequency Sinusitis - acute 461.9 Active Brii Christianson PRN Acute sinusitis, unspecified Anxiety with depression 300.4 Active 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 Dysthymic disorder URI 465.9 Active Jono Gagnon [...] 1/2 tab daily for 2 days PREDNISONE 92096434629 Active Arie Casper MD Active TUSSIONEX PENNKINETIC ER 10-8 MG/5ML LQCR 5ml po q12hr PRN Cough 20 07/02/19 HYDROCOD POLST-CHLORPHEN POLST 82589873419 Active Arie Casper MD Active CETIRIZINE HCL 10 MG ORAL TABS 1 po qd PRN Allergies CETIRIZINE HCL 57369254506 Active Arie Casper MD Active NEXPLANON IMPL right arm subcutaneously ETONOGE STREL IMPL 89318724535 Active Arie Casper MD Active LOMOTIL 2.5-0.025 MG TAB 1 tab po four times a day as needed for diarrhea DIPHENOXYLATE-ATROPINE 03984131386 No Longer Active Fozia Casper MD Active ZOLOFT 50 MG TAB 1 tablet by mouth daily SERTRA LINE HCL 30004467996 No Longer Active Arie Casper MD Active NAPROXEN 500 MG TAB Take 1 tab BID NAPROXEN 332 39075886 No Longer Active Arie Casper MD Active CEFDINIR 300 MG CAPS 1 po BID x 10 days CEFDINI R 43660430854 No Longer Active Brii Larson APRN Active PREDNISONE 20 MG TAB 1 tablet daily for airway inflammation 2015 PREDNISONE 76199761720 No Longer Active Brii Larson APRN Active CEFDINIR 300 MG CAPS 1 po BID x 10 days CEFDINI R 60968047895 No Longer Active Jono Gagnon DO Active FLONASE 50 MCG/ACT SUSP 1 spray each nostril twice d aily for allergies and runny nose until gone FLUTICASONE PROPIONATE No Longe r Active Jono Gagnon DO Active ALPRAZOLAM 0.25 MG TAB 1 tablet by mouth every 8 hours as ne eded for stress ALPRAZOLAM 56046958248 No Longer Active Jono Gagnon DO Active ZITHROMAX Z-EMIL 250 MG TABS 2 today, then 1 daily for 4 days 201 03/31/18 AZITHROMYCIN 15790112010 No Longer Active Arie Casper MD Active PROTONIX 40 MG ORAL TBEC 1 po q a.m. PANTOPRAZO LE SODIUM 03710830096 Active Arie Casper MD Active PREDNISONE 20 MG TAB 2 tabs daily for 3 days, 1 t ab daily for 3 days, 1/2 tab daily for 2 days PREDNISONE 24490062237 No Longer Active Brii Larson APRN Active PREDNISONE 20 MG TAB 1 tablet twice daily for 2 d ays, then 1 tablet once daily for 2 days PREDNISONE 94510064970 No Longer Active Brii Larson APRN Active PROMETHAZINE HCL 12.5 MG TABS 1 tablet by mouth every 6 hours as needed for nausea/vomiting PROMETHAZINE HCL 47042031601 No Longe r Active Jono Gagnon DO Active CITRATE OF MAGNESIA ORAL SOLN 1 bottle today for constipation 20 07/10/15 MAGNESIUM CITRATE 19544231186 No Longer Active Jono Gagnon DO Active ZOFRAN 4 MG ORAL TABS 1 TAB PO Q 6 HRS PRN NAUSEA 2014 ONDANSETRON HCL 29502146027 No Longer Active Brii Larson APRN A ctive LOMOTIL 2.5-0.025 MG TAB 1 to 2 four times a day as needed f or diarrhea DIPHENOXYLATE-ATROPINE 29575171408 No Longer Active January Larson APRN Active AMOXICILLIN 500 MG TABS 2 tabs twice a day for 10 days AMOXICILLIN 41638623578 No Longer Active Brii Larson APRN Acti ve CYCLOBENZAPRINE HCL 10 MG TABS 1/2 - 1 tablet by mouth three times daily as needed for muscle spasm/pain CYCLOBENZAPRINE HCL 49205598760 No Longer Active Arie Casper MD Active LOMOTIL 2.5-0.025 MG TABS 1 to 2 four times a day as needed for diarrhea DIPHENOXYLATE-ATROPINE 93312761931 No Longer Active Fozia Casper MD Active MACROBID 100 MG CAP 1 cap by mouth twice daily NITROFURANTOIN MONOHYD MACRO 93815026165 No Longer Active Arie Casper MD Active ZYRTEC ALLERGY 10 MG CAPS 1 po qd CETIRIZINE HCL 73457262524 No Longer Active Arie Casper MD Active AZITHROMYCIN 250 MG TABS 2 po qd x 1 day, then 1 po qd x 4 days AZITHROMYCIN 58724614185 No Longer Active Jillina Frazell 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 PREDNISONE 20 MG TAB 2 tabs daily for 3 days, 1 t ab daily for 3 days, 1/2 tab daily for 2 days PREDNISONE 77772627501 No Longer Active Jillina Frazell 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 PROMETHAZINE HCL 25 MG TABS 1 four times a day as needed for vomiting PROMETHAZINE HCL 47685947376 No Longer Active Mryna Roberto MD Active BACTRIM DS 800-160 MG TABS 1 twice a day SULFAMETHOXAZOLE-TRIMETHOPRIM 78137445738 No Longer Active Myrna Roberto MD Active VICKS DAYQUIL SEVERE COLD/FLU TABS 1 tab every 6 hours prn 12/10 [id number]-APAP TABS 86028284528 No Longer Active Myrna leigh MD Active GUAIFENESIN-CODEINE 100-10 MG/5ML ORAL SYRP 2 tsp every 6 hours prn GUAIFENESIN-CODEINE 21944174758 No Longer Active Myrna Roberto MD Active NAPROXEN 500 MG TAB one tab PO BID NAPROXEN 332 61733929 No Longer Active Myrna Roberto MD Active AUGMENTIN 875-125 MG TAB 1 tab by mouth twice daily with food 20 08/12/16 AMOXICILLIN-POT CLAVULANATE 86740454464 No Longer Active Liliana Estrada MD PhD Active AMOXICILLIN 500 MG CAP 1 tab by mouth 3 times daily 20 08/12/16 AMOXICILLIN 67508602736 No Longer Active Liliana Estrada MD PhD Acti ve TESSALON PERLES 100 MG CAP 1 tablet by mouth 3 times daily 11/01 BENZONATATE 14216978551 No Longer Active Liliana Estrada MD PhD Active FLAGYL 500 MG TAB 1 tablet by mouth two times daily 07/11/29 METRONIDAZOLE 45000417845 No Longer Active Nilam Weber Active ZITHROMAX 250 MG TAB 2 po today, then 1 po q days 2-5 AZITHROMYCIN 93266851543 No Longer Active Arie Casper MD Acti ve VITAMINS 0.8 MG TABS take 1 tab po qday 08/08 YOPYISOA-GYS-WY-FA 27590888757 No Longer Active Arie Casper MD Active IBUPROFEN 800 MG TABS take one po Q 8 hours IBU PROFEN 91900155911 No Longer Active Arie Casper MD Active [facility] TUSSIN COUGH/COLD CF 5-10-100 MG/5ML LIQD 2 teaspoons ev eliud 4 hours [id number] 02083974537 No Longer Active Blaine Casper MD Active COMTREX COLD/COUGH DAY/NITE MS 5-2-10-325 MG MISC 2 caps deja ry 4 hours SEOLYOTOO-EPQ-FU-APAP 92702243746 No Longer Active Da aleksandra Casper MD Active CHLORASEPTIC MAX SORE THROAT 15-10 MG LOZG 1 every 2 hours prn 2 BENZOCAINE-MENTHOL 41573883626 No Longer Active Arie Marcelo Active PREDNISONE 20 MG TAB 2 tabs daily for 3 days, 1 t ab daily for 3 days, 1/2 tab daily for 2 days PREDNISONE 35101177200 No Longer Active Jose Zhong MD Active AZITHROMYCIN 250 MG TABS 2 po qd x 1 day, then 1 po qd x 4 days AZITHROMYCIN 40229218410 No Longer Active Jose Zhong MD Active ZOFRAN ODT 4 MG TBDP 1 po q6hr PRN Nausea ONDAN SETRON 78924305195 No Longer Active Rich Rosales MD Active ZOFRAN 4 MG TABS 1 tablet every 4 hours ONDANSAddie ALLAN HCL 99203288246 No Longer Active Rich Rosales MD Active MUCINEX 600 MG [id number] Take 1-2 tablets every 12 hours GUAIFENESIN 44741811033 No Longer Active Rich Rosales MD Activ e BACTRIM 400-80 MG TABS take one po BID SULFAMETHOXAZOLE-TRIMETHOPRIM 23511557752 No Longer Active Abelardo HERNANDEZ Active AZITHROMYCIN 500 MG TABS 1 PO q day x 6 days [place] ITHROMYCIN 20980881006 No Longer Active Tin HERNANDEZ Active ZITHROMAX 250 MG TAB 2 po today, then 1 po q days 2-5 AZITHROMYCIN 71708613624 No Longer Active Arie Casper MD Acti ve ZITHROMAX 250 MG TAB 2 po today, then 1 po q days 2-5 AZITHROMYCIN 83181598789 No Longer Active Arie Casper MD Acti ve AMOXICILLIN 500 MG CAP 1 tab by mouth 3 times daily 09/23/20 AMOXICILLIN 91323711901 No Longer Active Arie Casper MD Acti ve BACTRIM DS 800-160 MG TAB 1 tab by mouth twice daily 2 TRIMETHOPRIM-SULFAMETHOXAZOLE 92382109892 No Longer Active Arie Casper MD Active AMOXICILLIN 500 MG TABS take 1 tab po TID AMOXI CILLIN 32515148436 No Longer Active Arie Casper MD Active BACTRIM DS 800-160 MG TAB 1 tab by mouth twice daily 2 BACTRIM DS 800-160 MG TAB 496694 TRIMETHOPRIM-SULFAMETHOXAZOLE Inac tive MUCINEX 600 MG [id number] Take 1-2 tablets every 12 hours MUCINEX 600 MG [id number] GUAIFENESIN Inactive ZOFRAN 4 MG TABS 1 tablet every 4 hours ZOFRAN 4 MG TABS 768553 ONDANSETRON HCL Inactive ZOFRAN ODT 4 MG TBDP 1 po q6hr PRN Nausea ZOFRAN ODT 4 MG TBDP 904613 ONDANSETRON Inactive CHLORASEPTIC MAX SORE THROAT 15-10 MG LOZG 1 every 2 hours prn 2 /04/30 CHLORASEPTIC MAX SORE THROAT 15-10 MG LOZG BENZO ARINA-MENTHOL Inactive COMTREX COLD/COUGH DAY/NITE MS 5-2-10-325 MG MISC 2 caps deja ry 4 hours COMTREX COLD/COUGH DAY/NITE MS 5-2-10-325 MG MIS C [id number]-APAP Inactive [facility] TUSSIN COUGH/COLD CF 5-10-100 MG/5ML LIQD 2 teaspoons ev eliud 4 hours [facility] TUSSIN COUGH/COLD CF 5-10-100 MG/5ML LIQD [id number]-QP Inactive IBUPROFEN 800 MG TABS take one po Q 8 hours IBUPROFEN 800 MG TABS IBUPROFEN Inactive VITAMINS 0.8 MG TABS take 1 tab po qday 08/08 VITAMINS 0.8 MG TABS [id number]-FA Inactive TESSALON PERLES 100 MG CAP 1 tablet by mouth 3 times daily 11/01 TESSALON PERLES 100 MG CAP 755535 BENZONATATE Inact zaid AMOXICILLIN 500 MG CAP 1 tab by mouth 3 times daily 08/12/16 AMOXICILLIN 500 MG CAP 569878 AMOXICILLIN Inactive GUAIFENESIN-CODEINE 100-10 MG/5ML ORAL SYRP 2 tsp every 6 hours prn GUAIFENESIN-CODEINE 100-10 MG/5ML ORAL SYRP 545631 GUAIFENESIN-CODEINE Inactive VICKS DAYQUIL SEVERE COLD/FLU TABS 1 tab every 6 hours prn 12/10 VICKS DAYQUIL SEVERE COLD/FLU TABS PHENYLEPHRINE -DM-GG-APAP TABS Inactive BACTRIM DS 800-160 MG TABS 1 twice a day BACTRIM DS 800- 160 MG TABS 615111 SULFAMETHOXAZOLE-TRIMETHOPRIM Inactive PROMETHAZINE HCL 25 MG TABS 1 four times a day as needed for vomiting PROMETHAZINE HCL 25 MG TABS 924983 PROMETHAZINE HCL Inactive ZYRTEC ALLERGY 10 MG CAPS 1 po qd ZY RTEC ALLERGY 10 MG CAPS CETIRIZINE HCL Inactive MACROBID 100 MG CAP 1 cap by mouth twice daily MACROBID 100 MG CAP 9828835 NITROFURANTOIN MONOHYD MACRO Inactive LOMOTIL 2.5-0.025 MG TABS 1 to 2 four times a day as needed for diarrhea LOMOTIL 2.5-0.025 MG TABS 8341700 DIPHENOXYLATE-A TROPINE Inactive CYCLOBENZAPRINE HCL 10 MG TABS 1/2 - 1 tablet by mouth three times daily as needed for muscle spasm/pain CYCLOBENZAP RINE HCL 10 MG TABS 431384 CYCLOBENZAPRINE HCL Inactive AMOXICILLIN 500 MG TABS 2 tabs twice a day for 10 days AMOXICILLIN 500 MG TABS 916534 AMOXICILLIN Inactive LOMOTIL 2.5-0.025 MG TAB 1 to 2 four times a day as needed f or diarrhea LOMOTIL 2.5-0.025 MG TAB 0478897 DIPHENOXYLATE-AT ROPINE Inactive ZOFRAN 4 MG ORAL TABS 1 TAB PO Q 6 HRS PRN NAUSEA 2014 ZOFRAN 4 MG ORAL TABS 217371 ONDANSETRON HCL Inactive CITRATE OF MAGNESIA ORAL SOLN 1 bottle today for constipation 20 07/10/15 CITRATE OF MAGNESIA ORAL SOLN 1893357 MAGNESIUM CITRATE Inactive PROMETHAZINE HCL 12.5 MG TABS 1 tablet by mouth every 6 hours as needed for nausea/vomiting PROMETHAZINE HCL 12.5 MG TABS 258006 PROMETHAZINE HCL Inactive PREDNISONE 20 MG TAB 1 tablet twice daily for 2 d ays, then 1 tablet once daily for 2 days PREDNISONE 20 MG TAB 643261 PREDNISONE Inac tive ALPRAZOLAM 0.25 MG TAB 1 tablet by mouth every 8 hours as ne eded for stress ALPRAZOLAM 0.25 MG TAB 030273 ALPRAZOLAM Inact zaid FLONASE 50 MCG/ACT SUSP 1 spray each nostril twice d aily for allergies and runny nose until gone FLONASE 50 MCG/ACT SUSP F LUTICASONE PROPIONATE Inactive PREDNISONE 20 MG TAB 1 tablet daily for airway inflammation 2015 PREDNISONE 20 MG TAB 884262 PREDNISONE Inactive NAPROXEN 500 MG TAB Take 1 tab BID NAPROXEN 500 MG TAB 468039 NAPROXEN Inactive ZOLOFT 50 MG TAB 1 tablet by mouth daily ZOLOFT 50 MG TAB 052364 SERTRALINE HCL Inactive LOMOTIL 2.5-0.025 MG TAB 1 tab po four times a day as needed for diarrhea LOMOTIL 2.5-0.025 MG TAB 1934908 DIPHENOXYLATE-AT ROPINE Inactive AMOXICILLIN 500 MG TABS take 1 tab po TID AMOXICILLIN 500 MG TABS 576292 AMOXICILLIN Inactive AMOXICILLIN 500 MG CAP 1 tab by mouth 3 times daily 09/23/20 AMOXICILLIN 500 MG CAP 973787 AMOXICILLIN Inactive ZITHROMAX 250 MG TAB 2 po today, then 1 po q days 2-5 ZITHROMAX 250 MG TAB 7765651 AZITHROMYCIN Inactive ZITHROMAX 250 MG TAB 2 po today, then 1 po q days 2-5 ZITHROMAX 250 MG TAB 4805698 AZITHROMYCIN Inactive AZITHROMYCIN 500 MG TABS 1 PO q day x 6 days 3 AZITHROMYCIN 500 MG TABS 8935884 AZITHROMYCIN Inactive BACTRIM 400-80 MG TABS take one po BID BA CTRIM 400-80 MG TABS 185488 SULFAMETHOXAZOLE-TRIMETHOPRIM Inactive AZITHROMYCIN 250 MG TABS 2 po qd x 1 day, then 1 po qd x 4 days AZITHROMYCIN 250 MG TABS 7048855 AZITHROMYCIN Inactiv e PREDNISONE 20 MG TAB 2 tabs daily for 3 days, 1 t ab daily for 3 days, 1/2 tab daily for 2 days PREDNISONE 20 MG TAB 181064 PREDNISON E Inactive ZITHROMAX 250 MG TAB 2 po today, then 1 po q days 2-5 ZITHROMAX 250 MG TAB 6324119 AZITHROMYCIN Inactive FLAGYL 500 MG TAB 1 tablet by mouth two times daily 07/11/29 FLAGYL 500 MG TAB 045376 METRONIDAZOLE Inactive AUGMENTIN 875-125 MG TAB 1 tab by mouth twice daily with food 20 08/12/16 AUGMENTIN 875-125 MG TAB 802516 AMOXICILLIN-POT CLAVULA ANGELO Inactive NAPROXEN 500 MG TAB one tab PO BID NAPROXEN 500 MG TAB 541884 NAPROXEN Inactive PREDNISONE 20 MG TAB 2 tabs daily for 3 days, 1 t ab daily for 3 days, 1/2 tab daily for 2 days PREDNISONE 20 MG TAB 424576 PREDNISON E Inactive AZITHROMYCIN 250 MG TABS 2 po qd x 1 day, then 1 po qd x 4 days AZITHROMYCIN 250 MG TABS 6906688 AZITHROMYCIN Inactiv e PREDNISONE 20 MG TAB 2 tabs daily for 3 days, 1 t ab daily for 3 days, 1/2 tab daily for 2 days PREDNISONE 20 MG TAB 103654 PREDNISON E Inactive ZITHROMAX Z-EMIL 250 MG TABS 2 today, then 1 daily for 4 days 201 03/31/18 ZITHROMAX Z-EMIL 250 MG TABS 0721370 AZITHROMYCIN Inac tive CEFDINIR 300 MG CAPS 1 po BID x 10 days C EFDINIR 300 MG CAPS 466614 CEFDINIR Inactive CEFDINIR 300 MG CAPS 1 po BID x 10 days C EFDINIR 300 MG CAPS 929254 CEFDINIR Inactive Advance Directives Directive Description Start [...] Panel - Chemistry sodium, serum 136 mmol/L 722-789 0014/04/26 carbon dioxide, venous blood 29.9 mmol/L 21.0-32 [...] 284 10^3/MM^3 10*3/mm3 142-424 Lab Report: Chlamydia/GC APTIMA/[id number] - Lab chlamydia DNA probe NOT DETECTED NOT DETECTED Lab Report: Chlamydia/GC APTIMA/[id number] - Microbiology Neisseria gonorrhoeae DNA probe NOT [...] urine, semiquantitative Negative Neg ative Lab Report: [facility] [place], UADIP W/MICRO, AUTO - Chemistry protein, total [...] Negative Encounters Code Encounter Date Provider Facility CPT-34960 Level 3 Est. Patient 16:40:36 CDT Arie mcqueen MD [facility] CPT-42378 Level 4 Est. Patient 15:29:22 SOFTWARE DEVELOPMENT SPECIALIST Arie mcqueen MD [facility] CPT-89581 Level 3 Est. Patient 15:18:16 SOFTWARE DEVELOPMENT SPECIALIST Jono black [facility] CPT-28150 Level 4 Est. Patient 12:08:40 SOFTWARE DEVELOPMENT SPECIALIST Steve [facility] CPT-02530 Level 3 Est. Patient 09:24:42 CDT Steve [facility] CPT-02239 Level 3 Est. Patient 09:12:56 CDT Arie mcqueen MD [facility] CPT-37602 Level 3 Est. Patient 16:40:54 CDT Jose Zhong MD [facility] CPT-13540 Level 2 Est. Patient 13:01:13 CDT Steve EDUC[employer] FACULTY MEMBER [facility] CPT-31433 Level 3 Est. Patient 11:55:30 SOFTWARE DEVELOPMENT SPECIALIST Jono black [facility] CPT-16843 Level 3 Est. Patient 09:52:36 SOFTWARE DEVELOPMENT SPECIALIST Steve [facility] CPT-63046 Level 3 Est. Patient 16:25:33 SOFTWARE DEVELOPMENT SPECIALIST Rich Rosales MD [facility]-15124 Level 3 Est. Patient 20:33:55 CDT Arie mcqueen MD [facility]-94669 Level 3 Est. Patient 14:18:20 CDT Rich Rosales MD [facility]-19414 Level 4 Est. Patient 09:34:31 CDT Arie mcqueen MD [facility]-15592 Level 3 Est. Patient 09:08:55 SOFTWARE DEVELOPMENT SPECIALIST Liliana vincent MD [facility]-42666 Level 3 Est. Patient 16:44:07 SOFTWARE DEVELOPMENT SPECIALIST Arie mcqueen MD [facility]-08887 Level 3 Est. Patient 10:44:27 CDT Arie mcqueen MD [facility] CPT-76920 Level 3 Est. Patient 08:55:41 CDT Jose Zhong MD [facility]-72052 Level 3 Est. Patient 18:37:31 CDT Liliana vincent MD PhD [facility]-53513 Level 3 Est. Patient 14:28:23 CDT Abelardo HERNANDEZ [facility]-28252 Level 3 Est. Patient 15:18:13 SOFTWARE DEVELOPMENT SPECIALIST Arie mcqueen MD [facility]-87031 Level 3 Est. Patient 10:11:29 SOFTWARE DEVELOPMENT SPECIALIST Arie mcqueen MD [facility]-50081 Level 3 Est. Patient 10:55:57 SOFTWARE DEVELOPMENT SPECIALIST Jono black DO [facility] CPT-11726 Level 3 Est. Patient 17:29:05 CDT Arie mcqueen MD [facility] Procedures Code Procedure Name Date Entry Date Standard Desc ription CPT-72339 Sono transvag pelvis non OB uterus ovari es cervix - XRAY USE ONLY 08:58:14 SOFTWARE DEVELOPMENT SPECIALIST CPT-82503 UA w micro - LAB USE ONLY 16:04:56 SOFTWARE DEVELOPMENT SPECIALIST 2015 CPT-51615 Wet Prep/GEN - LAB USE ONLY 16:04:56 SOFTWARE DEVELOPMENT SPECIALIST 20 08/10/29 CPT-08774 First Vx - Ix admin via ID I M or jet injects without counseling by physician 16:57:10 CDT CPT-74341 Fluzone Preservative Free Intramuscular Suspension 16:57:10 CDT CPT-J0696 Rocephin 1000 mg (Ceftriaxone) 11:49:23 CDT CPT-J1040 Depo Medrol 80 mg (Methyl Prednisolone A cetate) 11:49:23 CDT CPT-J1100 Decadron 8mg (Dexamethasone) 11:49:23 CDT 2 CPT-03252 Abx/Therapy Injection 11:49:23 CDT CPT-79229 Abx/Therapy Injection 11:49:23 CDT CPT-95136 Abd compl w upright 09:07:26 SOFTWARE DEVELOPMENT SPECIALIST CPT-88295 Ear Wash 16:12:47 SOFTWARE DEVELOPMENT SPECIALIST CPT-OV Office Visit 11:12:01 CDT CPT-OV Office Visit 15:30:23 CDT CPT-50610 Sono pelvis non OB uterus ovaries cervix 15:50:44 CDT CPT-25809 Hand comp min 3V 16:42:32 CDT CPT-98411 Abd compl w upright 12:17:01 CDT CPT-78870 Nexplanon Placement 15:07:39 SOFTWARE DEVELOPMENT SPECIALIST CPT-92522 Removal of IUD 15:07:39 SOFTWARE DEVELOPMENT SPECIALIST CPT-38692 TB Tubersol 12:09:32 CDT CPT-81085 TB Tubersol 13:55:43 CDT
--- OUTSIDE RECORDS SUMMARY | 2020-03-03 08:25 | XMS REPORT | Clinical Summary ---
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 Nausea alone URI 465.9 Active Jono Gagnon DO Acu te upper respiratory infections of unspecified site Allergic rhinitis 477.9 Active Brii Christiansno PRN Allergic rhinitis, cause unspecified Abdominal pain, right lower quadrant 789.03 Active Jose Zhong MD Abdominal pain, right lower quadrant Urinary frequency 788.41 Inactive Roseann Crawford Urinary frequency Urinary frequency 788.41 Active 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, [employer]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 Urinary frequency Sinusitis - acute 461.9 Active Brii Christianson PRN Acute sinusitis, unspecified Anxiety with depression 300.4 Active Glenn Larson ENTER[employer]ISE BUSINESS ARCHITECT Dysthymic disorder URI 465.9 Active Jono Gagnon [...] tab by mouth twice daily 2 TRIMETHOPRIM-SULFAMETHOXAZOLE 29961270378 Active Roseann Crawford Active NEXPLANON IMPL right arm subcutaneously ETONOGE STREL IMPL 53367015804 No Longer Active Brii Larson APRN Active TUSSIONEX PENNKINETIC ER 10-8 MG/5ML LQCR 5ml po q12hr PRN Cough HYDROCOD POLST-CHLORPHEN POLST 60733531382 No Longer Active Brii Larson APRN Active CETIRIZINE HCL 10 MG ORAL TABS 1 po qd PRN Allergies 2 CETIRIZINE HCL 62483213972 No Longer Active Brii Larson APRN Ac tive PREDNISONE 20 MG TAB 2 tabs daily for 3 days, 1 t ab daily for 3 days, 1/2 tab daily for 2 days PREDNISONE 36616623655 No Longer Active Arie Casper MD Active LOMOTIL 2.5-0.025 MG TAB 1 tab po four times a day as needed for diarrhea DIPHENOXYLATE-ATROPINE 32709709611 No Longer Active D freddy Casper MD Active ZOLOFT 50 MG TAB 1 tablet by mouth daily SERTRA LINE HCL 39101753776 No Longer Active Arie Casper MD Active NAPROXEN 500 MG TAB Take 1 tab BID NAPROXEN 332 01905949 No Longer Active Arie Casper MD Active CEFDINIR 300 MG CAPS 1 po BID x 10 days CEFDINI R 02965457811 No Longer Active rBii Larson APRN Active PREDNISONE 20 MG TAB 1 tablet daily for airway inflammation 2015 PREDNISONE 18470767941 No Longer Active Brii Larson APRN Active CEFDINIR 300 MG CAPS 1 po BID x 10 days CEFDINI R 26698371721 No Longer Active Jono Gagnon DO Active FLONASE 50 MCG/ACT SUSP 1 spray each nostril twice d aily for allergies and runny nose until gone FLUTICASONE PROPIONATE No Longe r Active Jono Gagnon DO Active ALPRAZOLAM 0.25 MG TAB 1 tablet by mouth every 8 hours as ne eded for stress ALPRAZOLAM 01943508445 No Longer Active Jono Gagnon DO Active ZITHROMAX Z-EMIL 250 MG TABS 2 today, then 1 daily for 4 days 201 03/31/18 AZITHROMYCIN 91790206636 No Longer Active Arie Casper MD Active PROTONIX 40 MG ORAL TBEC 1 po q a.m. PANTOPRAZO LE SODIUM 59504467974 Active Arie Casper MD Active PREDNISONE 20 MG TAB 2 tabs daily for 3 days, 1 t ab daily for 3 days, 1/2 tab daily for 2 days PREDNISONE 14929212370 No Longer Active Brii Larson APRN Active PREDNISONE 20 MG TAB 1 tablet twice daily for 2 d ays, then 1 tablet once daily for 2 days PREDNISONE 72809576920 No Longer Active Brii Larson APRN Active PROMETHAZINE HCL 12.5 MG TABS 1 tablet by mouth every 6 hours as needed for nausea/vomiting PROMETHAZINE HCL 78530292710 No Longe r Active Jono Gagnon DO Active CITRATE OF MAGNESIA ORAL SOLN 1 bottle today for constipation 20 07/10/15 MAGNESIUM CITRATE 71302163701 No Longer Active Jono Gagnon DO Active ZOFRAN 4 MG ORAL TABS 1 TAB PO Q 6 HRS PRN NAUSEA 2014 ONDANSETRON HCL 82063615474 No Longer Active Brii Larson APRN A ctive LOMOTIL 2.5-0.025 MG TAB 1 to 2 four times a day as needed f or diarrhea DIPHENOXYLATE-ATROPINE 01634308728 No Longer Active January Larson APRN Active AMOXICILLIN 500 MG TABS 2 tabs twice a day for 10 days AMOXICILLIN 36654698153 No Longer Active Brii Larson APRN Acti ve CYCLOBENZAPRINE HCL 10 MG TABS 1/2 - 1 tablet by mouth three times daily as needed for muscle spasm/pain CYCLOBENZAPRINE HCL 25671250382 No Longer Active Arie Casper MD Active LOMOTIL 2.5-0.025 MG TABS 1 to 2 four times a day as needed for diarrhea DIPHENOXYLATE-ATROPINE 21276675380 No Longer Active Fozia Casper MD Active MACROBID 100 MG CAP 1 cap by mouth twice daily NITROFURANTOIN MONOHYD MACRO 47170694839 No Longer Active Arie Casper MD Active ZYRTEC ALLERGY 10 MG CAPS 1 po qd CETIRIZINE HCL 50530068049 No Longer Active Arie Casper MD Active AZITHROMYCIN 250 MG TABS 2 po qd x 1 day, then 1 po qd x 4 days AZITHROMYCIN 47054919220 No Longer Active Jillina Florina EN[employer]ISE BUSINESS ARCHITECT Active PREDNISONE 20 MG TAB 2 tabs daily for 3 days, 1 t ab daily for 3 days, 1/2 tab daily for 2 days PREDNISONE 19505864206 No Longer Active Jillina Fradeepl ENTER[employer]ISE BUSINESS ARCHITECT Active PROMETHAZINE HCL 25 MG TABS 1 four times a day as needed for vomiting PROMETHAZINE HCL 53571896002 No Longer Active Myrna Roberto MD Active BACTRIM DS 800-160 MG TABS 1 twice a day SULFAMETHOXAZOLE-TRIMETHOPRIM 83400724546 No Longer Active Myrna Roberto MD Active VICKS DAYQUIL SEVERE COLD/FLU TABS 1 tab every 6 hours prn 12/10 [id number]-APAP TABS 81217517923 No Longer Active Myrna leigh MD Active GUAIFENESIN-CODEINE 100-10 MG/5ML ORAL SYRP 2 tsp every 6 hours prn GUAIFENESIN-CODEINE 78456723417 No Longer Active Myrna Roberto MD Active NAPROXEN 500 MG TAB one tab PO BID NAPROXEN 332 94261401 No Longer Active Myrna Roberto MD Active AUGMENTIN 875-125 MG TAB 1 tab by mouth twice daily with food 20 08/12/16 AMOXICILLIN-POT CLAVULANATE 92085728521 No Longer Active Liliana Estrada MD PhD Active AMOXICILLIN 500 MG CAP 1 tab by mouth 3 times daily 08/12/16 AMOXICILLIN 95652181370 No Longer Active Liliana Estrada MD PhD Acti ve TESSALON PERLES 100 MG CAP 1 tablet by mouth 3 times daily 11/01 BENZONATATE 31281189240 No Longer Active Liliana Estrada MD PhD Active FLAGYL 500 MG TAB 1 tablet by mouth two times daily 07/11/29 METRONIDAZOLE 40241555870 No Longer Active Nilam Weber Active ZITHROMAX 250 MG TAB 2 po today, then 1 po q days 2-5 AZITHROMYCIN 71274620133 No Longer Active Arie Casper MD Acti ve VITAMINS 0.8 MG TABS take 1 tab po qday 08/08 NCIGMTAT-IEO-UP-FA 89567867431 No Longer Active Arie Casper MD Active IBUPROFEN 800 MG TABS take one po Q 8 hours IBU PROFEN 42043434989 No Longer Active Arie Casper MD Active [facility] TUSSIN COUGH/COLD CF 5-10-100 MG/5ML LIQD 2 teaspoons ev eliud 4 hours [id number] 41005140656 No Longer Active Blaine Casper MD Active COMTREX COLD/COUGH DAY/NITE MS 5-2-10-325 MG MISC 2 caps deja ry 4 hours [id number]-UC-APAP 13623648342 No Longer Active Da aleksandra Casper MD Active CHLORASEPTIC MAX SORE THROAT 15-10 MG LOZG 1 every 2 hours prn 2 BENZOCAINE-MENTHOL 28624070861 No Longer Active Arie Marcelo Active PREDNISONE 20 MG TAB 2 tabs daily for 3 days, 1 t ab daily for 3 days, 1/2 tab daily for 2 days PREDNISONE 35860805493 No Longer Active Jose Zhong MD Active AZITHROMYCIN 250 MG TABS 2 po qd x 1 day, then 1 po qd x 4 days AZITHROMYCIN 92100474902 No Longer Active Jose Zhong MD Active ZOFRAN ODT 4 MG TBDP 1 po q6hr PRN Nausea ONDAN SETRON 41654342427 No Longer Active Rich Rosales MD Active ZOFRAN 4 MG TABS 1 tablet every 4 hours ONDANSE JERRELL HCL 40156024364 No Longer Active Rich Rosales MD Active MUCINEX 600 MG [id number] Take 1-2 tablets every 12 hours GUAIFENESIN 14265398565 No Longer Active Rich Rosales MD Activ e BACTRIM 400-80 MG TABS take one po BID SULFAMETHOXAZOLE-TRIMETHOPRIM 36923911453 No Longer Active Abelardo HERNANDEZ Active AZITHROMYCIN 500 MG TABS 1 PO q day x 6 days AZ ITHROMYCIN 81061940427 No Longer Active Tin HERNANDEZ Active ZITHROMAX 250 MG TAB 2 po today, then 1 po q days 2-5 AZITHROMYCIN 16100779572 No Longer Active Arie Casper MD Acti ve ZITHROMAX 250 MG TAB 2 po today, then 1 po q days 2-5 AZITHROMYCIN 53811244103 No Longer Active Arie Casper MD Acti ve AMOXICILLIN 500 MG CAP 1 tab by mouth 3 times daily 20 09/23/20 AMOXICILLIN 43870594401 No Longer Active Arie Casper MD Acti ve BACTRIM DS 800-160 MG TAB 1 tab by mouth twice daily 2 TRIMETHOPRIM-SULFAMETHOXAZOLE 51572911517 No Longer Active Arie Casper MD Active AMOXICILLIN 500 MG TABS take 1 tab po TID AMOXI CILLIN 06949452498 No Longer Active Arie Casper MD Active BACTRIM DS 800-160 MG TAB 1 tab by mouth twice daily 2 BACTRIM DS 800-160 MG TAB 19821226 TRIMETHOPRIM-SULFAMETHOXAZOLE Inac tive MUCINEX 600 MG [id number] Take 1-2 tablets every 12 hours MUCINEX 600 MG [id number] GUAIFENESIN Inactive ZOFRAN 4 MG TABS 1 tablet every 4 hours ZOFRAN 4 MG TABS 002653 ONDANSETRON HCL Inactive ZOFRAN ODT 4 MG TBDP 1 po q6hr PRN Nausea ZOFRAN ODT 4 MG TBDP 568320 ONDANSETRON Inactive CHLORASEPTIC MAX SORE THROAT 15-10 MG LOZG 1 every 2 hours prn 2 CHLORASEPTIC MAX SORE THROAT 15-10 MG LOZG BENZO ARINA-MENTHOL Inactive COMTREX COLD/COUGH DAY/NITE MS 5-2-10-325 MG MISC 2 caps deja ry 4 hours COMTREX COLD/COUGH DAY/NITE MS 5-2-10-325 MG MIS C [id number] Inactive [facility] TUSSIN COUGH/COLD CF 5-10-100 MG/5ML LIQD 2 teaspoons ev eliud 4 hours [facility] TUSSIN COUGH/COLD CF 5-10-100 MG/5ML LIQD [id number] Inactive IBUPROFEN 800 MG TABS take one po Q 8 hours IBUPROFEN 800 MG TABS IBUPROFEN Inactive VITAMINS 0.8 MG TABS take 1 tab po qday 08/08 VITAMINS 0.8 MG TABS [id number] Inactive TESSALON PERLES 100 MG CAP 1 tablet by mouth 3 times daily 11/01 TESSALON PERLES 100 MG CAP 640501 BENZONATATE Inact zaid AMOXICILLIN 500 MG CAP 1 tab by mouth 3 times daily 20 08/12/16 AMOXICILLIN 500 MG CAP 353762 AMOXICILLIN Inactive GUAIFENESIN-CODEINE 100-10 MG/5ML ORAL SYRP 2 tsp every 6 hours prn GUAIFENESIN-CODEINE 100-10 MG/5ML ORAL SYRP 598661 GUAIFENESIN-CODEINE Inactive VICKS DAYQUIL SEVERE COLD/FLU TABS 1 tab every 6 hours prn 12/10 VICKS DAYQUIL SEVERE COLD/FLU TABS PHENYLEPHRINE -DM-GG-APAP TABS Inactive BACTRIM DS 800-160 MG TABS 1 twice a day BACTRIM DS 800- 160 MG TABS 187348 SULFAMETHOXAZOLE-TRIMETHOPRIM Inactive PROMETHAZINE HCL 25 MG TABS 1 four times a day as needed for vomiting PROMETHAZINE HCL 25 MG TABS 349184 PROMETHAZINE HCL Inactive ZYRTEC ALLERGY 10 MG CAPS 1 po qd ZY RTEC ALLERGY 10 MG CAPS CETIRIZINE HCL Inactive MACROBID 100 MG CAP 1 cap by mouth twice daily MACROBID 100 MG CAP 1361467 NITROFURANTOIN MONOHYD MACRO Inactive LOMOTIL 2.5-0.025 MG TABS 1 to 2 four times a day as needed for diarrhea LOMOTIL 2.5-0.025 MG TABS 8762702 DIPHENOXYLATE-A TROPINE Inactive CYCLOBENZAPRINE HCL 10 MG TABS 1/2 - 1 tablet by mouth three times daily as needed for muscle spasm/pain CYCLOBENZAP RINE HCL 10 MG TABS 105305 CYCLOBENZAPRINE HCL Inactive AMOXICILLIN 500 MG TABS 2 tabs twice a day for 10 days AMOXICILLIN 500 MG TABS 865841 AMOXICILLIN Inactive LOMOTIL 2.5-0.025 MG TAB 1 to 2 four times a day as needed f or diarrhea LOMOTIL 2.5-0.025 MG TAB 9278491 DIPHENOXYLATE-AT ROPINE Inactive ZOFRAN 4 MG ORAL TABS 1 TAB PO Q 6 HRS PRN NAUSEA 2014 ZOFRAN 4 MG ORAL TABS 242537 ONDANSETRON HCL Inactive CITRATE OF MAGNESIA ORAL SOLN 1 bottle today for constipation 20 07/10/15 CITRATE OF MAGNESIA ORAL SOLN 9658423 MAGNESIUM CITRATE Inactive PROMETHAZINE HCL 12.5 MG TABS 1 tablet by mouth every 6 hours as needed for nausea/vomiting PROMETHAZINE HCL 12.5 MG TABS 631384 PROMETHAZINE HCL Inactive PREDNISONE 20 MG TAB 1 tablet twice daily for 2 d ays, then 1 tablet once daily for 2 days PREDNISONE 20 MG TAB 418383 PREDNISONE Inac tive ALPRAZOLAM 0.25 MG TAB 1 tablet by mouth every 8 hours as ne eded for stress ALPRAZOLAM 0.25 MG TAB 259056 ALPRAZOLAM Inact zaid FLONASE 50 MCG/ACT SUSP 1 spray each nostril twice d aily for allergies and runny nose until gone FLONASE 50 MCG/ACT SUSP 1029836 FLUTICASONE PROPIONATE Inactive PREDNISONE 20 MG TAB 1 tablet daily for airway inflammation 2015 PREDNISONE 20 MG TAB 957424 PREDNISONE Inactive NAPROXEN 500 MG TAB Take 1 tab BID NAPROXEN 500 MG TAB 315490 NAPROXEN Inactive ZOLOFT 50 MG TAB 1 tablet by mouth daily ZOLOFT 50 MG TAB 587524 SERTRALINE HCL Inactive LOMOTIL 2.5-0.025 MG TAB 1 tab po four times a day as needed for diarrhea LOMOTIL 2.5-0.025 MG TAB 8303869 DIPHENOXYLATE-AT ROPINE Inactive CETIRIZINE HCL 10 MG ORAL TABS 1 po qd PRN Allergies 2 CETIRIZINE HCL 10 MG ORAL TABS 0497335 CETIRIZINE HCL Inactive TUSSIONEX PENNKINETIC ER 10-8 MG/5ML LQCR 5ml po q12hr PRN Cough TUSSIONEX PENNKINETIC ER 10-8 MG/5ML LQCR HYDROCOD POLST-CHLORPHEN POLST Inactive NEXPLANON IMPL right arm subcutaneously NEXPLANO N IMPL ETONOGESTREL IMPL Inactive AMOXICILLIN 500 MG TABS take 1 tab po TID AMOXICILLIN 500 MG TABS 518144 AMOXICILLIN Inactive AMOXICILLIN 500 MG CAP 1 tab by mouth 3 times daily 09/23/20 AMOXICILLIN 500 MG CAP 787604 AMOXICILLIN Inactive ZITHROMAX 250 MG TAB 2 po today, then 1 po q days 2-5 ZITHROMAX 250 MG TAB 459707 AZITHROMYCIN Inactive ZITHROMAX 250 MG TAB 2 po today, then 1 po q days 2-5 ZITHROMAX 250 MG TAB 818391 AZITHROMYCIN Inactive AZITHROMYCIN 500 MG TABS 1 PO q day x 6 days 3 AZITHROMYCIN 500 MG TABS 2757298 AZITHROMYCIN Inactive BACTRIM 400-80 MG TABS take one po BID BA CTRIM 400-80 MG TABS 039272 SULFAMETHOXAZOLE-TRIMETHOPRIM Inactive AZITHROMYCIN 250 MG TABS 2 po qd x 1 day, then 1 po qd x 4 days AZITHROMYCIN 250 MG TABS 244545 AZITHROMYCIN Inactiv e PREDNISONE 20 MG TAB 2 tabs daily for 3 days, 1 t ab daily for 3 days, 1/2 tab daily for 2 days PREDNISONE 20 MG TAB 493981 PREDNISON E Inactive ZITHROMAX 250 MG TAB 2 po today, then 1 po q days 2-5 ZITHROMAX 250 MG TAB 731855 AZITHROMYCIN Inactive FLAGYL 500 MG TAB 1 tablet by mouth two times daily 07/11/29 FLAGYL 500 MG TAB 097461 METRONIDAZOLE Inactive AUGMENTIN 875-125 MG TAB 1 tab by mouth twice daily with food 20 08/12/16 AUGMENTIN 875-125 MG TAB 346512 AMOXICILLIN-POT CLAVULA ANGELO Inactive NAPROXEN 500 MG TAB one tab PO BID NAPROXEN 500 MG TAB 890729 NAPROXEN Inactive PREDNISONE 20 MG TAB 2 tabs daily for 3 days, 1 t ab daily for 3 days, 1/2 tab daily for 2 days PREDNISONE 20 MG TAB 336973 PREDNISON E Inactive AZITHROMYCIN 250 MG TABS 2 po qd x 1 day, then 1 po qd x 4 days AZITHROMYCIN 250 MG TABS 972810 AZITHROMYCIN Inactiv e PREDNISONE 20 MG TAB 2 tabs daily for 3 days, 1 t ab daily for 3 days, 1/2 tab daily for 2 days PREDNISONE 20 MG TAB 309468 PREDNISON E Inactive ZITHROMAX Z-EMIL 250 MG TABS 2 today, then 1 daily for 4 days 201 03/31/18 ZITHROMAX Z-EMIL 250 MG TABS 656378 AZITHROMYCIN Inac tive CEFDINIR 300 MG CAPS [...] for 2 days PREDNISONE 20 MG TAB 883660 PREDNISON E Inactive Advance Directives Directive Description [...] Value Unit Range Description Lab Report: Chlamydia/GC APTIMA/10104 - Lab chlamydia DNA probe NOT DETECTED NOT DETECTED Lab Report: Chlamydia/GC APTIMA/80785 - Microbiology Neisseria gonorrhoeae DNA probe NOT [...] 5.0-8.5 Encounters Code Encounter Date Provider Facility CPT-58256 Level 3 Est. Patient 15:40:28 CDT Steve EN[employer]ISE BUSINESS ARCHITECT [facility] CPT-01330 Level 3 Est. Patient 16:40:36 CDT Arie mcqueen MD [facility] CPT-95570 Level 4 Est. Patient 15:29:22 INTERNET SALES REPRESENTATIVE Arie mcqueen MD [facility] CPT-34609 Level 3 Est. Patient 15:18:16 INTERNET SALES REPRESENTATIVE Jono black DO [facility] CPT-35304 Level 4 Est. Patient 12:08:40 INTERNET SALES REPRESENTATIVE Steve [facility] CPT-80590 Level 3 Est. Patient 09:24:42 CDT Steve EN[employer] BUSINESS ARCHITECT [facility] CPT-98338 Level 3 Est. Patient 09:12:56 CDT Arie mcqueen MD [facility] CPT-03954 Level 3 Est. Patient 16:40:54 CDT Jose Zhong MD [facility] CPT-91988 Level 2 Est. Patient 13:01:[address] [facility] CPT-75364 Level 3 Est. Patient 11:55:30 INTERNET SALES REPRESENTATIVE Jono black [facility] CPT-17648 Level 3 Est. Patient 09:52:36 INTERNET SALES REPRESENTATIVE Steve PAREKHN [facility] CPT-14650 Level 3 Est. Patient 16:25:33 INTERNET SALES REPRESENTATIVE Rich Rosales MD [facility] CPT-33512 Level 3 Est. Patient 20:33:55 CDT Arie mcqueen MD [facility] CPT-23766 Level 3 Est. Patient 14:18:20 CDT Rich Rosales MD [facility] CPT-44597 Level 4 Est. Patient 09:34:31 CDT Arie mcqueen MD [facility]-99987 Level 3 Est. Patient 09:08:55 INTERNET SALES REPRESENTATIVE Liliana vincent MD PhD [facility] CPT-90239 Level 3 Est. Patient 16:44:07 INTERNET SALES REPRESENTATIVE Arie mcqueen MD [facility] CPT-96220 Level 3 Est. Patient 10:44:27 CDT Arie mcqueen MD [facility]-63325 Level 3 Est. Patient 08:55:41 CDT Jose Zhong MD [facility] CPT-38677 Level 3 Est. Patient 18:37:31 CDT Liliana vincent MD PhD [facility]-80486 Level 3 Est. Patient 14:28:23 CDT Abelardo HERNANDEZ [facility] CPT-80779 Level 3 Est. Patient 15:18:13 INTERNET SALES REPRESENTATIVE Arie mcqueen MD [facility]-56405 Level 3 Est. Patient 10:11:29 INTERNET SALES REPRESENTATIVE Arie mcqueen MD [facility] CPT-13436 Level 3 Est. Patient 10:55:57 INTERNET SALES REPRESENTATIVE Jono black DO [facility] CPT-53540 Level 3 Est. Patient 17:29:05 CDT Arie mcqueen MD [facility] Procedures Code Procedure Name Date Entry Date Standard Desc ription CPT-60206 Nexplanon Removal 15:40:28 CDT CPT-85612 Sono transvag pelvis non OB uterus ovari es cervix - XRAY USE ONLY 08:58:14 INTERNET SALES REPRESENTATIVE CPT-12986 UA w micro - LAB USE ONLY 16:04:56 INTERNET SALES REPRESENTATIVE 2015 CPT-81413 Wet Prep/GEN - LAB USE ONLY 16:04:56 INTERNET SALES REPRESENTATIVE 20 08/10/29 CPT-45489 First Vx - Ix admin via ID I M or jet injects without counseling by physician 16:57:10 CDT CPT-93449 Fluzone Preservative Free Intramuscular Suspension 16:57:10 CDT CPT-J0696 Rocephin 1000 mg (Ceftriaxone) 11:49:23 CDT CPT-J1040 Depo Medrol 80 mg (Methyl Prednisolone A cetate) 11:49:23 CDT CPT-J1100 Decadron 8mg (Dexamethasone) 11:49:23 CDT 2 CPT-98604 Abx/Therapy Injection 11:49:23 CDT CPT-86392 Abx/Therapy Injection 11:49:23 CDT CPT-30121 Abd compl w upright 09:07:26 INTERNET SALES REPRESENTATIVE CPT-93377 Ear Wash 16:12:47 INTERNET SALES REPRESENTATIVE CPT-OV Office Visit 11:12:01 CDT CPT-OV Office Visit 15:30:23 CDT CPT-33267 Sono pelvis non OB uterus ovaries cervix 15:50:44 CDT CPT-66638 Hand comp min 3V 16:42:32 CDT CPT-63314 Abd compl w upright 12:17:01 CDT CPT-34008 Nexplanon Placement 15:07:39 INTERNET SALES REPRESENTATIVE CPT-52147 Removal of IUD 15:07:39 INTERNET SALES REPRESENTATIVE CPT-52999 TB Tubersol 12:09:32 CDT CPT-51318 TB Tubersol 13:55:43 CDT
--- OUTSIDE RECORDS SUMMARY | 2020-03-03 08:25 | XMS REPORT | Clinical Summary ---
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 Nausea alone URI 465.9 Active Jono Gagnon DO Acu te upper respiratory infections of unspecified site Allergic rhinitis 477.9 Active Brii Larson A PRN Allergic rhinitis, cause unspecified Abdominal pain, right lower quadrant 789.03 Active Jose Zhong MD Abdominal pain, right lower quadrant Urinary frequency 788.41 Inactive Roseann Crawford Urinary frequency BREAST CANCER ICD-V16.3 Inactive Jose Marcelo COLON [...] PhD Urinary frequency ICD-788.41 Inactive Roseann willett Sinusitis, acute ICD-461.9 Inactive Liliana cheema MD PhD Fever ICD-780.60 Inactive Liilana Estrada MD PhD 08/12/16 Medication List Medication Instructions Start Date Stop Date Generic Name NDC Status Provider Patient Instruction ALPRAZOLAM 0.25 MG TAB 1 tablet by mouth every 8 hours as ne eded for stress ALPRAZOLAM 62308843784 Active Jono Gagnon DO A ctive PROTONIX 40 MG ORAL TBEC 1 po q a.m. PANTOPRAZO LE SODIUM 43594726223 Active Carline Ochoa RPT,RMA Active PREDNISONE 20 MG TAB 2 tabs daily for 3 days, 1 t ab daily for 3 days, 1/2 tab daily for 2 days PREDNISONE 94331952559 No Longer Active Brii Larson APRN Active PREDNISONE 20 MG TAB 1 tablet twice daily for 2 d ays, then 1 tablet once daily for 2 days PREDNISONE 81731647835 No Longer Active Brii Larson APRN Active FLONASE 50 MCG/ACT SUSP 1 spray each nostril twice d aily for allergies and runny nose until gone FLUTICASONE PROPIONATE Active Jono Gagnon DO Active PROMETHAZINE HCL 12.5 MG TABS 1 tablet by mouth every 6 hours as needed for nausea/vomiting PROMETHAZINE HCL 49941654942 No Longe r Active Jono Gagnon DO Active CITRATE OF MAGNESIA ORAL SOLN 1 bottle today for constipation 20 07/10/15 MAGNESIUM CITRATE 78834622551 No Longer Active Jono Gagnon DO Active ZOFRAN 4 MG ORAL TABS 1 TAB PO Q 6 HRS PRN NAUSEA 2014 ONDANSETRON HCL 89538442824 No Longer Active Brii Larson APRN A ctive LOMOTIL 2.5-0.025 MG TAB 1 to 2 four times a day as needed f or diarrhea DIPHENOXYLATE-ATROPINE 23713666201 No Longer Active January Larson APRN Active AMOXICILLIN 500 MG TABS 2 tabs twice a day for 10 days AMOXICILLIN 75707226349 No Longer Active Brii Larson APRN Acti ve NEXPLANON IMPL ETONOGESTREL IMPL 68122279231 Active Rich Rosales MD Active CYCLOBENZAPRINE HCL 10 MG TABS 1/2 - 1 tablet by mouth three times daily as needed for muscle spasm/pain CYCLOBENZAPRINE HCL 32736858622 No Longer Active Arei Casper MD Active LOMOTIL 2.5-0.025 MG TABS 1 to 2 four times a day as needed for diarrhea DIPHENOXYLATE-ATROPINE 36541705240 No Longer Active Fozia Casper MD Active MACROBID 100 MG CAP 1 cap by mouth twice daily NITROFURANTOIN MONOHYD MACRO 99973684888 No Longer Active Arie Casper MD Active ZYRTEC ALLERGY 10 MG CAPS 1 po qd CETIRIZINE HCL 12511532358 No Longer Active Arie Casper MD Active AZITHROMYCIN 250 MG TABS 2 po qd x 1 day, then 1 po qd x 4 days AZITHROMYCIN 58483019920 No Longer Active Jessica Heaton APRN Active PREDNISONE 20 MG TAB 2 tabs daily for 3 days, 1 t ab daily for 3 days, 1/2 tab daily for 2 days PREDNISONE 02311900150 No Longer Active Jillina Frazell BIODIESEL PRODUCTION TECHNICIAN Active PROMETHAZINE HCL 25 MG TABS 1 four times a day as needed for vomiting PROMETHAZINE HCL 11226520978 No Longer Active Myrna Roberto MD Active BACTRIM DS 800-160 MG TABS 1 twice a day SULFAMETHOXAZOLE-TRIMETHOPRIM 11032126992 No Longer Active Myrna Roberto MD Active VICKS DAYQUIL SEVERE COLD/FLU TABS 1 tab every 6 hours prn 12/10 [id number] TABS 50038427241 No Longer Active Myrna leigh MD Active GUAIFENESIN-CODEINE 100-10 MG/5ML ORAL SYRP 2 tsp every 6 hours prn GUAIFENESIN-CODEINE 70377034421 No Longer Active Myrna Roberto MD Active NAPROXEN 500 MG TAB one tab PO BID NAPROXEN 332 11002535 No Longer Active Myrna Roberto MD Active AUGMENTIN 875-125 MG TAB 1 tab by mouth twice daily with food 08/12/16 AMOXICILLIN-POT CLAVULANATE 02361018713 No Longer Active Liliana Estrada MD PhD Active AMOXICILLIN 500 MG CAP 1 tab by mouth 3 times daily 08/12/16 AMOXICILLIN 24406762163 No Longer Active Liliana Estrada MD PhD Acti ve TESSALON PERLES 100 MG CAP 1 tablet by mouth 3 times daily 11/01 BENZONATATE 35308460700 No Longer Active Liliana Estrada MD PhD Active FLAGYL 500 MG TAB 1 tablet by mouth two times daily 07/11/29 METRONIDAZOLE 84134779500 No Longer Active Nilam Raida Active ZITHROMAX 250 MG TAB 2 po today, then 1 po q days 2-5 AZITHROMYCIN 57793026229 No Longer Active Arie Casper MD Acti ve VITAMINS 0.8 MG TABS take 1 tab po qday 08/08 [id number] 72104527147 No Longer Active Arie Casper MD Active IBUPROFEN 800 MG TABS take one po Q 8 hours IBU PROFEN 45941319992 No Longer Active Arie Casper MD Active [facility] TUSSIN COUGH/COLD CF 5-10-100 MG/5ML LIQD 2 teaspoons ev eliud 4 hours [id number] 74880964184 No Longer Active Blaine Casper MD Active COMTREX COLD/COUGH DAY/NITE MS 5-2-10-325 MG MISC 2 caps deja ry 4 hours [id number] 57604603272 No Longer Active Landon Casper MD Active CHLORASEPTIC MAX SORE THROAT 15-10 MG LOZG 1 every 2 hours prn 2 BENZOCAINE-MENTHOL 57972816582 No Longer Active Arie Marcelo Active PREDNISONE 20 MG TAB 2 tabs daily for 3 days, 1 t ab daily for 3 days, 1/2 tab daily for 2 days PREDNISONE 63622632633 No Longer Active Jose Zhong MD Active AZITHROMYCIN 250 MG TABS 2 po qd x 1 day, then 1 po qd x 4 days AZITHROMYCIN 33143812863 No Longer Active Jose Zhong MD Active ZOFRAN ODT 4 MG TBDP 1 po q6hr PRN Nausea ONDAN SETRON 96735217881 No Longer Active Rich Rosales MD Active ZOFRAN 4 MG TABS 1 tablet every 4 hours ONDANSE JERRELL HCL 66119765680 No Longer Active Rich Rosales MD Active MUCINEX 600 MG [id number] Take 1-2 tablets every 12 hours GUAIFENESIN 44370046337 No Longer Active Rich Rosales MD Activ e BACTRIM 400-80 MG TABS take one po BID SULFAMETHOXAZOLE-TRIMETHOPRIM 85177157160 No Longer Active Demie Ahlquist PA Active AZITHROMYCIN 500 MG TABS 1 PO q day x 6 days [place] ITHROMYCIN 27475149130 No Longer Active Tin HERNANDEZ Active ZITHROMAX 250 MG TAB 2 po today, then 1 po q days 2-5 AZITHROMYCIN 32509210997 No Longer Active Arie Casper MD Acti ve ZITHROMAX 250 MG TAB 2 po today, then 1 po q days 2-5 AZITHROMYCIN 65627487953 No Longer Active Arie Casper MD Acti ve AMOXICILLIN 500 MG CAP 1 tab by mouth 3 times daily 20 09/23/20 AMOXICILLIN 96361929191 No Longer Active Arie Caspre MD Acti ve BACTRIM DS 800-160 MG TAB 1 tab by mouth twice daily 2 TRIMETHOPRIM-SULFAMETHOXAZOLE 84135260083 No Longer Active Arie Casper MD Active AMOXICILLIN 500 MG TABS take 1 tab po TID AMOXI CILLIN 01989140242 No Longer Active Arie Casper MD Active BACTRIM DS 800-160 MG TAB 1 tab by mouth twice daily 2 BACTRIM DS 800-160 MG TAB 094613 TRIMETHOPRIM-SULFAMETHOXAZOLE Inac tive MUCINEX 600 MG [id number] Take 1-2 tablets every 12 hours MUCINEX 600 MG [id number] GUAIFENESIN Inactive ZOFRAN 4 MG TABS 1 tablet every 4 hours ZOFRAN 4 MG TABS 504154 ONDANSETRON HCL Inactive ZOFRAN ODT 4 MG TBDP 1 po q6hr PRN Nausea ZOFRAN ODT 4 MG TBDP 504602 ONDANSETRON Inactive CHLORASEPTIC MAX SORE THROAT 15-10 MG LOZG 1 every 2 hours prn 2 /04/30 CHLORASEPTIC MAX SORE THROAT 15-10 MG LOZG BENZO ARINA-MENTHOL Inactive COMTREX COLD/COUGH DAY/NITE MS 5-2-10-325 MG MISC 2 caps deja ry 4 hours COMTREX COLD/COUGH DAY/NITE MS 5-2-10-325 MG MIS C [id number] Inactive [facility] TUSSIN COUGH/COLD CF 5-10-100 MG/5ML LIQD 2 teaspoons ev eliud 4 hours [facility] TUSSIN COUGH/COLD CF 5-10-100 MG/5ML LIQD [id number] Inactive IBUPROFEN 800 MG TABS take one po Q 8 hours IBUPROFEN 800 MG TABS IBUPROFEN Inactive VITAMINS 0.8 MG TABS take 1 tab po qday 08/08 VITAMINS 0.8 MG TABS [id number] Inactive TESSALON PERLES 100 MG CAP 1 tablet by mouth 3 times daily 11/01 TESSALON PERLES 100 MG CAP 216032 BENZONATATE Inact zaid AMOXICILLIN 500 MG CAP 1 tab by mouth 3 times daily 08/12/16 AMOXICILLIN 500 MG CAP 595843 AMOXICILLIN Inactive GUAIFENESIN-CODEINE 100-10 MG/5ML ORAL SYRP 2 tsp every 6 hours prn GUAIFENESIN-CODEINE 100-10 MG/5ML ORAL SYRP 144516 GUAIFENESIN-CODEINE Inactive VICKS DAYQUIL SEVERE COLD/FLU TABS 1 tab every 6 hours prn 12/10 VICKS DAYQUIL SEVERE COLD/FLU TABS PHENYLEPHRINE -DM-GG-APAP TABS Inactive BACTRIM DS 800-160 MG TABS 1 twice a day BACTRIM DS 800- 160 MG TABS 434322 SULFAMETHOXAZOLE-TRIMETHOPRIM Inactive PROMETHAZINE HCL 25 MG TABS 1 four times a day as needed for vomiting PROMETHAZINE HCL 25 MG TABS 891980 PROMETHAZINE HCL Inactive ZYRTEC ALLERGY 10 MG CAPS 1 po qd ZY RTEC ALLERGY 10 MG CAPS CETIRIZINE HCL Inactive MACROBID 100 MG CAP 1 cap by mouth twice daily MACROBID 100 MG CAP 2467574 NITROFURANTOIN MONOHYD MACRO Inactive LOMOTIL 2.5-0.025 MG TABS 1 to 2 four times a day as needed for diarrhea LOMOTIL 2.5-0.025 MG TABS 1120070 DIPHENOXYLATE-A TROPINE Inactive CYCLOBENZAPRINE HCL 10 MG TABS 1/2 - 1 tablet by mouth three times daily as needed for muscle spasm/pain CYCLOBENZAP RINE HCL 10 MG TABS 509332 CYCLOBENZAPRINE HCL Inactive AMOXICILLIN 500 MG TABS 2 tabs twice a day for 10 days AMOXICILLIN 500 MG TABS 174987 AMOXICILLIN Inactive LOMOTIL 2.5-0.025 MG TAB 1 to 2 four times a day as needed f or diarrhea LOMOTIL 2.5-0.025 MG TAB 0211920 DIPHENOXYLATE-AT ROPINE Inactive ZOFRAN 4 MG ORAL TABS 1 TAB PO Q 6 HRS PRN NAUSEA 2014 ZOFRAN 4 MG ORAL TABS 147177 ONDANSETRON HCL Inactive CITRATE OF MAGNESIA ORAL SOLN 1 bottle today for constipation 20 07/10/15 CITRATE OF MAGNESIA ORAL SOLN 0163910 MAGNESIUM CITRATE Inactive PROMETHAZINE HCL 12.5 MG TABS 1 tablet by mouth every 6 hours as needed for nausea/vomiting PROMETHAZINE HCL 12.5 MG TABS 184270 PROMETHAZINE HCL Inactive PREDNISONE 20 MG TAB 1 tablet twice daily for 2 d ays, then 1 tablet once daily for 2 days PREDNISONE 20 MG TAB 851017 PREDNISONE Inac tive AMOXICILLIN 500 MG TABS take 1 tab po TID AMOXICILLIN 500 MG TABS 891513 AMOXICILLIN Inactive AMOXICILLIN 500 MG CAP 1 tab by mouth 3 times daily 09/23/20 AMOXICILLIN 500 MG CAP 665149 AMOXICILLIN Inactive ZITHROMAX 250 MG TAB 2 po today, then 1 po q days 2-5 ZITHROMAX 250 MG TAB 9043604 AZITHROMYCIN Inactive ZITHROMAX 250 MG TAB 2 po today, then 1 po q days 2-5 ZITHROMAX 250 MG TAB 5651154 AZITHROMYCIN Inactive AZITHROMYCIN 500 MG TABS 1 PO q day x 6 days 3 AZITHROMYCIN 500 MG TABS 9181088 AZITHROMYCIN Inactive BACTRIM 400-80 MG TABS take one po BID BA CTRIM 400-80 MG TABS 112001 SULFAMETHOXAZOLE-TRIMETHOPRIM Inactive AZITHROMYCIN 250 MG TABS 2 po qd x 1 day, then 1 po qd x 4 days AZITHROMYCIN 250 MG TABS 7972420 AZITHROMYCIN Inactiv e PREDNISONE 20 MG TAB 2 tabs daily for 3 days, 1 t ab daily for 3 days, 1/2 tab daily for 2 days PREDNISONE 20 MG TAB 989509 PREDNISON E Inactive ZITHROMAX 250 MG TAB 2 po today, then 1 po q days 2-5 ZITHROMAX 250 MG TAB 2285282 AZITHROMYCIN Inactive FLAGYL 500 MG TAB 1 tablet by mouth two times daily 07/11/29 FLAGYL 500 MG TAB 509177 METRONIDAZOLE Inactive AUGMENTIN 875-125 MG TAB 1 tab by mouth twice daily with food 20 08/12/16 AUGMENTIN 875-125 MG TAB 517907 AMOXICILLIN-POT CLAVULA ANGELO Inactive NAPROXEN 500 MG TAB one tab PO BID NAPROXEN 500 MG TAB 666025 NAPROXEN Inactive PREDNISONE 20 MG TAB 2 tabs daily for 3 days, 1 t ab daily for 3 days, 1/2 tab daily for 2 days PREDNISONE 20 MG TAB 315950 PREDNISON E Inactive AZITHROMYCIN 250 MG TABS 2 po qd x 1 day, then 1 po qd x 4 days AZITHROMYCIN 250 MG TABS 5296462 AZITHROMYCIN Inactiv e PREDNISONE 20 MG TAB 2 tabs daily for 3 days, 1 t ab daily for 3 days, 1/2 tab daily for 2 days PREDNISONE 20 MG TAB 858362 PREDNISON E Inactive Advance Directives Directive Description [...] Panel - Chemistry sodium, serum 136 mmol/L 104-099 4077/04/26 carbon dioxide, venous blood 29.9 mmol/L 21.0-32 [...] - Chem istry sodium, serum 139 mmol/L 719-276 6704/12/15 carbon dioxide, venous blood 30.2 mmol/L 21.0-32 [...] 5.0-8.5 Encounters Code Encounter Date Provider Facility CPT-[id number] Level 3 Est. Patient 16:40:54 CDT Jose Zhong MD [facility] CPT-76635 Level 2 Est. Patient 13:01:13 CDT Steve [facility] CPT-29812 Level 3 Est. Patient 11:55:30 COMMUNICATIONS CLERK Jono black DO [facility] CPT-81453 Level 3 Est. Patient 09:52:36 COMMUNICATIONS CLERK Steve CABRERA [facility] CPT-55555 Level 3 Est. Patient 16:25:33 COMMUNICATIONS CLERK Rich Rosales MD [facility] CPT-03223 Level 3 Est. Patient 20:33:55 CDT Arie mcqueen MD [facility] CPT-92888 Level 3 Est. Patient 14:18:20 CDT Rich Rosales MD [facility] CPT-74850 Level 4 Est. Patient 09:34:31 CDT Arie mcqueen MD [facility] CPT-38130 Level 3 Est. Patient 09:08:55 COMMUNICATIONS CLERK Liliana vincent MD PhD [facility] CPT-78754 Level 3 Est. Patient 16:44:07 COMMUNICATIONS CLERK Arie mcqueen MD [facility] CPT-11850 Level 3 Est. Patient 10:44:27 CDT Arie mcqueen MD [facility] CPT-61131 Level 3 Est. Patient 08:55:41 CDT Jose Zhong MD [facility] CPT-38923 Level 3 Est. Patient 18:37:31 CDT Liilana vincent MD PhD [facility] CPT-21084 Level 3 Est. Patient 14:28:23 CDT Abelardo HERNANDEZ [facility] CPT-93196 Level 3 Est. Patient 15:18:13 COMMUNICATIONS CLERK Arie mcqueen MD [facility] CPT-71981 Level 3 Est. Patient 10:11:29 COMMUNICATIONS CLERK Arie mcqueen MD [facility] CPT-90476 Level 3 Est. Patient 10:55:57 COMMUNICATIONS CLERK Jono black DO [facility] CPT-29590 Level 3 Est. Patient 17:29:05 CDT Arie mcqueen MD [facility] Procedures Code Procedure Name Date Entry Date Standard Desc ription CPT-81800 Abd compl w upright 09:07:26 COMMUNICATIONS CLERK CPT-87530 Ear Wash 16:12:47 COMMUNICATIONS CLERK CPT-OV Office Visit 11:12:01 CDT CPT-OV Office Visit 15:30:23 CDT CPT-02914 Sono pelvis non OB uterus ovaries cervix 15:50:44 CDT CPT-60774 Hand comp min 3V 16:42:32 CDT CPT-20054 Abd compl w upright 12:17:01 CDT CPT-49169 Nexplanon Placement 15:07:39 COMMUNICATIONS CLERK CPT-74470 Removal of IUD 15:07:39 COMMUNICATIONS CLERK CPT-20483 TB Tubersol 12:09:32 CDT CPT-29090 TB Tubersol 13:55:43 CDT
--- OUTSIDE RECORDS SUMMARY | 2020-03-03 08:26 | XMS REPORT | Clinical Summary ---
Author Author Admin, Diamante Marcelo Organization [employer] Address Unknown Phone Unavailable Allergies, Adverse Reactions, [...] site Abdominal pain 789.00 Active Brii Larson LANGUAGE ASSISTANT Abdominal pain, unspecified site Diarrhea 787.91 Resolved [...] cute pharyngitis Nausea 787.02 Active Brii Larson LANGUAGE ASSISTANT Nausea alone URI 465.9 Active Jono [...] Anxiety with depression 300.4 Active Glenn Larson LANGUAGE ASSISTANT Dysthymic disorder URI 465.9 Active Jono [...] a day as needed for diarrhea DIPHENOXYLATE-ATROPINE 08357060480 No Longer Active Fozia Casper MD Active ZOLOFT 50 MG TAB 1 tablet by mouth daily SERTRA LINE HCL 47917858956 No Longer Active Arie Casper MD Active NAPROXEN 500 MG TAB Take 1 tab BID NAPROXEN 332 43867711 No Longer Active Arie Casper MD Active NEXPLANON IMPL Left arm subcutaneously ETONOGES TREL IMPL 84450065954 Active Brii Larson APRN Active CEFDINIR 300 MG CAPS 1 po BID x 10 days CEFDINI R 67271203575 No Longer Active Brii Larson APRN Active PREDNISONE 20 MG TAB 1 tablet daily for airway inflammation 2015 PREDNISONE 90569158251 No Longer Active Brii Larson APRN Active CEFDINIR 300 MG CAPS 1 po BID x 10 days CEFDINI R 31706095023 No Longer Active Jono Gagnon DO Active FLONASE 50 MCG/ACT SUSP 1 spray each nostril twice d aily for allergies and runny nose until gone FLUTICASONE PROPIONATE No Longe r Active Jono Gagnon DO Active ALPRAZOLAM 0.25 MG TAB 1 tablet by mouth every 8 hours as ne eded for stress ALPRAZOLAM 31620844364 No Longer Active Jono Gagnon DO Active ZITHROMAX Z-EMIL 250 MG TABS 2 today, then 1 daily for 4 days 201 03/31/18 AZITHROMYCIN 31085537883 No Longer Active Arie Casper MD Active PROTONIX 40 MG ORAL TBEC 1 po q a.m. PANTOPRAZO LE SODIUM 20785586131 Active Arie Casper MD Active PREDNISONE 20 MG TAB 2 tabs daily for 3 days, 1 t ab daily for 3 days, 1/2 tab daily for 2 days PREDNISONE 70396374206 No Longer Active Brii Larson APRN Active PREDNISONE 20 MG TAB 1 tablet twice daily for 2 d ays, then 1 tablet once daily for 2 days PREDNISONE 84851044404 No Longer Active Brii Larson APRN Active PROMETHAZINE HCL 12.5 MG TABS 1 tablet by mouth every 6 hours as needed for nausea/vomiting PROMETHAZINE HCL 96357705972 No Longe r Active Jono Gagnon DO Active CITRATE OF MAGNESIA ORAL SOLN 1 bottle today for constipation 20 07/10/15 MAGNESIUM CITRATE 31597295978 No Longer Active Jono Gagnon DO Active ZOFRAN 4 MG ORAL TABS 1 TAB PO Q 6 HRS PRN NAUSEA 2014 ONDANSETRON HCL 02584129644 No Longer Active Brii Larson APRN A ctive LOMOTIL 2.5-0.025 MG TAB 1 to 2 four times a day as needed f or diarrhea DIPHENOXYLATE-ATROPINE 41696671367 No Longer Active M kait Larson APRN Active AMOXICILLIN 500 MG TABS 2 tabs twice a day for 10 days AMOXICILLIN 88178415107 No Longer Active Brii Larson APRN Acti ve CYCLOBENZAPRINE HCL 10 MG TABS 1/2 - 1 tablet by mouth three times daily as needed for muscle spasm/pain CYCLOBENZAPRINE HCL 42391129225 No Longer Active Arie Casper MD Active LOMOTIL 2.5-0.025 MG TABS 1 to 2 four times a day as needed for diarrhea DIPHENOXYLATE-ATROPINE 03256264085 No Longer Active D freddy Casper MD Active MACROBID 100 MG CAP 1 cap by mouth twice daily NITROFURANTOIN MONOHYD MACRO 05597729476 No Longer Active Arie Casper MD Active ZYRTEC ALLERGY 10 MG CAPS 1 po qd CETIRIZINE HCL 31259405570 No Longer Active Arie Casper MD Active AZITHROMYCIN 250 MG TABS 2 po qd x 1 day, then 1 po qd x 4 days AZITHROMYCIN 46589477982 No Longer Active Jessica Heaton APRN Active PREDNISONE 20 MG TAB 2 tabs daily for 3 days, 1 t ab daily for 3 days, 1/2 tab daily for 2 days PREDNISONE 83734552594 No Longer Active Waynellisael Heaton APRN Active PROMETHAZINE HCL 25 MG TABS 1 four times a day as needed for vomiting PROMETHAZINE HCL 22366038537 No Longer Active Myrna Roberto MD Active BACTRIM DS 800-160 MG TABS 1 twice a day SULFAMETHOXAZOLE-TRIMETHOPRIM 17732341647 No Longer Active Myrna Roberto MD Active VICKS DAYQUIL SEVERE COLD/FLU TABS 1 tab every 6 hours prn 12/10 [id number]-APAP TABS 83216212310 No Longer Active Myrna leigh MD Active GUAIFENESIN-CODEINE 100-10 MG/5ML ORAL SYRP 2 tsp every 6 hours prn GUAIFENESIN-CODEINE 13351653118 No Longer Active Myrna Roberto MD Active NAPROXEN 500 MG TAB one tab PO BID NAPROXEN 332 25022816 No Longer Active Myrna Roberto MD Active AUGMENTIN 875-125 MG TAB 1 tab by mouth twice daily with food 20 08/12/16 AMOXICILLIN-POT CLAVULANATE 91962425304 No Longer Active Liliana Estrada MD PhD Active AMOXICILLIN 500 MG CAP 1 tab by mouth 3 times daily 08/12/16 AMOXICILLIN 28874663920 No Longer Active Liliana Estrada MD PhD Acti ve TESSALON PERLES 100 MG CAP 1 tablet by mouth 3 times daily 11/01 BENZONATATE 01884299850 No Longer Active Liliana Estrada MD PhD Active FLAGYL 500 MG TAB 1 tablet by mouth two times daily 07/11/29 METRONIDAZOLE 96643615364 No Longer Active Nilam Raida Active ZITHROMAX 250 MG TAB 2 po today, then 1 po q days 2-5 AZITHROMYCIN 09151066893 No Longer Active Arie Casper MD Acti ve VITAMINS 0.8 MG TABS take 1 tab po qday 08/08 [id number] 50379069339 No Longer Active Arie Casper MD Active IBUPROFEN 800 MG TABS take one po Q 8 hours IBU PROFEN 41853505459 No Longer Active Arie Casper MD Active [facility] TUSSIN COUGH/COLD CF 5-10-100 MG/5ML LIQD 2 teaspoons ev eliud 4 hours [id number] 09460319297 No Longer Active Blaine Casper MD Active COMTREX COLD/COUGH DAY/NITE MS 5-2-10-325 MG MISC 2 caps deja ry 4 hours [id number] 88569638669 No Longer Active Da aleksandra Casper MD Active CHLORASEPTIC MAX SORE THROAT 15-10 MG LOZG 1 every 2 hours prn 2 BENZOCAINE-MENTHOL 18962234804 No Longer Active Arie Marcelo Active PREDNISONE 20 MG TAB 2 tabs daily for 3 days, 1 t ab daily for 3 days, 1/2 tab daily for 2 days PREDNISONE 78086677841 No Longer Active Jose Zhong MD Active AZITHROMYCIN 250 MG TABS 2 po qd x 1 day, then 1 po qd x 4 days AZITHROMYCIN 37586813170 No Longer Active Jose Zhong MD Active ZOFRAN ODT 4 MG TBDP 1 po q6hr PRN Nausea ONDAN SETRON 07495593319 No Longer Active Rich Rosales MD Active ZOFRAN 4 MG TABS 1 tablet every 4 hours ONDANSE JERRELL HCL 97487779512 No Longer Active Rich Rosales MD Active MUCINEX 600 MG [id number]-QUM Take 1-2 tablets every 12 hours GUAIFENESIN 04790739074 No Longer Active Rich Rosales MD Activ e BACTRIM 400-80 MG TABS take one po BID SULFAMETHOXAZOLE-TRIMETHOPRIM 31273827892 No Longer Active Abelardo HERNANDEZ Active AZITHROMYCIN 500 MG TABS 1 PO q day x 6 days AZ ITHROMYCIN 83446148959 No Longer Active Tin HERNANDEZ Active ZITHROMAX 250 MG TAB 2 po today, then 1 po q days 2-5 AZITHROMYCIN 10771804838 No Longer Active Arie Casper MD Acti ve ZITHROMAX 250 MG TAB 2 po today, then 1 po q days 2-5 AZITHROMYCIN 63134619653 No Longer Active Arie Casper MD Acti ve AMOXICILLIN 500 MG CAP 1 tab by mouth 3 times daily 09/23/20 AMOXICILLIN 37960583869 No Longer Active Arie Casper MD Acti ve BACTRIM DS 800-160 MG TAB 1 tab by mouth twice daily 2 TRIMETHOPRIM-SULFAMETHOXAZOLE 13878432373 No Longer Active Arie Casper MD Active AMOXICILLIN 500 MG TABS take 1 tab po TID AMOXI CILLIN 45658763594 No Longer Active Arie Casper MD Active BACTRIM DS 800-160 MG TAB 1 tab by mouth twice daily 2 BACTRIM DS 800-160 MG TAB 413971 TRIMETHOPRIM-SULFAMETHOXAZOLE Inac tive MUCINEX 600 MG [id number]-ZED Take 1-2 tablets every 12 hours MUCINEX 600 MG [id number] GUAIFENESIN Inactive ZOFRAN 4 MG TABS 1 tablet every 4 hours ZOFRAN 4 MG TABS 225473 ONDANSETRON HCL Inactive ZOFRAN ODT 4 MG TBDP 1 po q6hr PRN Nausea ZOFRAN ODT 4 MG TBDP 140582 ONDANSETRON Inactive CHLORASEPTIC MAX SORE THROAT 15-10 MG LOZG 1 every 2 hours prn 2 /04/30 CHLORASEPTIC MAX SORE THROAT 15-10 MG LOZG BENZO ARINA-MENTHOL Inactive COMTREX COLD/COUGH DAY/NITE MS 5-2-10-325 MG MISC 2 caps deja ry 4 hours COMTREX COLD/COUGH DAY/NITE MS 5-2-10-325 MG MIS C [id number] Inactive [facility] TUSSIN COUGH/COLD CF 5-10-100 MG/5ML LIQD 2 teaspoons ev eliud 4 hours [facility] TUSSIN COUGH/COLD CF 5-10-100 MG/5ML LIQD [id number] Inactive IBUPROFEN 800 MG TABS take one po Q 8 hours IBUPROFEN 800 MG TABS IBUPROFEN Inactive VITAMINS 0.8 MG TABS take 1 tab po qday 08/08 VITAMINS 0.8 MG TABS [id number] Inactive TESSALON PERLES 100 MG CAP 1 tablet by mouth 3 times daily 11/01 TESSALON PERLES 100 MG CAP 298124 BENZONATATE Inact zaid AMOXICILLIN 500 MG CAP 1 tab by mouth 3 times daily 08/12/16 AMOXICILLIN 500 MG CAP 041603 AMOXICILLIN Inactive GUAIFENESIN-CODEINE 100-10 MG/5ML ORAL SYRP 2 tsp every 6 hours prn GUAIFENESIN-CODEINE 100-10 MG/5ML ORAL SYRP 981315 GUAIFENESIN-CODEINE Inactive VICKS DAYQUIL SEVERE COLD/FLU TABS 1 tab every 6 hours prn 12/10 VICKS DAYQUIL SEVERE COLD/FLU TABS PHENYLEPHRINE -DM-GG-APAP TABS Inactive BACTRIM DS 800-160 MG TABS 1 twice a day BACTRIM DS 800- 160 MG TABS 929273 SULFAMETHOXAZOLE-TRIMETHOPRIM Inactive PROMETHAZINE HCL 25 MG TABS 1 four times a day as needed for vomiting PROMETHAZINE HCL 25 MG TABS 693036 PROMETHAZINE HCL Inactive ZYRTEC ALLERGY 10 MG CAPS 1 po qd ZY RTEC ALLERGY 10 MG CAPS CETIRIZINE HCL Inactive MACROBID 100 MG CAP 1 cap by mouth twice daily MACROBID 100 MG CAP 4058107 NITROFURANTOIN MONOHYD MACRO Inactive LOMOTIL 2.5-0.025 MG TABS 1 to 2 four times a day as needed for diarrhea LOMOTIL 2.5-0.025 MG TABS 3675174 DIPHENOXYLATE-A TROPINE Inactive CYCLOBENZAPRINE HCL 10 MG TABS 1/2 - 1 tablet by mouth three times daily as needed for muscle spasm/pain CYCLOBENZAP RINE HCL 10 MG TABS 164758 CYCLOBENZAPRINE HCL Inactive AMOXICILLIN 500 MG TABS 2 tabs twice a day for 10 days AMOXICILLIN 500 MG TABS 850850 AMOXICILLIN Inactive LOMOTIL 2.5-0.025 MG TAB 1 to 2 four times a day as needed f or diarrhea LOMOTIL 2.5-0.025 MG TAB 7356291 DIPHENOXYLATE-AT ROPINE Inactive ZOFRAN 4 MG ORAL TABS 1 TAB PO Q 6 HRS PRN NAUSEA 2014 ZOFRAN 4 MG ORAL TABS 026054 ONDANSETRON HCL Inactive CITRATE OF MAGNESIA ORAL SOLN 1 bottle today for constipation 20 07/10/15 CITRATE OF MAGNESIA ORAL SOLN 3620015 MAGNESIUM CITRATE Inactive PROMETHAZINE HCL 12.5 MG TABS 1 tablet by mouth every 6 hours as needed for nausea/vomiting PROMETHAZINE HCL 12.5 MG TABS 653355 PROMETHAZINE HCL Inactive PREDNISONE 20 MG TAB 1 tablet twice daily for 2 d ays, then 1 tablet once daily for 2 days PREDNISONE 20 MG TAB 721358 PREDNISONE Inac tive ALPRAZOLAM 0.25 MG TAB 1 tablet by mouth every 8 hours as ne eded for stress ALPRAZOLAM 0.25 MG TAB 771431 ALPRAZOLAM Inact zaid FLONASE 50 MCG/ACT SUSP 1 spray each nostril twice d aily for allergies and runny nose until gone FLONASE 50 MCG/ACT SUSP F LUTICASONE PROPIONATE Inactive PREDNISONE 20 MG TAB 1 tablet daily for airway inflammation 2015 PREDNISONE 20 MG TAB 728879 PREDNISONE Inactive NAPROXEN 500 MG TAB Take 1 tab BID NAPROXEN 500 MG TAB 321005 NAPROXEN Inactive ZOLOFT 50 MG TAB 1 tablet by mouth daily ZOLOFT 50 MG TAB 628888 SERTRALINE HCL Inactive LOMOTIL 2.5-0.025 MG TAB 1 tab po four times a day as needed for diarrhea LOMOTIL 2.5-0.025 MG TAB 9162705 DIPHENOXYLATE-AT ROPINE Inactive AMOXICILLIN 500 MG TABS take 1 tab po TID AMOXICILLIN 500 MG TABS 293908 AMOXICILLIN Inactive AMOXICILLIN 500 MG CAP 1 tab by mouth 3 times daily 09/23/20 AMOXICILLIN 500 MG CAP 836224 AMOXICILLIN Inactive ZITHROMAX 250 MG TAB 2 po today, then 1 po q days 2-5 ZITHROMAX 250 MG TAB 9140568 AZITHROMYCIN Inactive ZITHROMAX 250 MG TAB 2 po today, then 1 po q days 2-5 ZITHROMAX 250 MG TAB 0286208 AZITHROMYCIN Inactive AZITHROMYCIN 500 MG TABS 1 PO q day x 6 days 3 AZITHROMYCIN 500 MG TABS 1959810 AZITHROMYCIN Inactive BACTRIM 400-80 MG TABS take one po BID BA CTRIM 400-80 MG TABS 619930 SULFAMETHOXAZOLE-TRIMETHOPRIM Inactive AZITHROMYCIN 250 MG TABS 2 po qd x 1 day, then 1 po qd x 4 days AZITHROMYCIN 250 MG TABS 0859221 AZITHROMYCIN Inactiv e PREDNISONE 20 MG TAB 2 tabs daily for 3 days, 1 t ab daily for 3 days, 1/2 tab daily for 2 days PREDNISONE 20 MG TAB 598470 PREDNISON E Inactive ZITHROMAX 250 MG TAB 2 po today, then 1 po q days 2-5 ZITHROMAX 250 MG TAB 1426889 AZITHROMYCIN Inactive FLAGYL 500 MG TAB 1 tablet by mouth two times daily 07/11/29 FLAGYL 500 MG TAB 934041 METRONIDAZOLE Inactive AUGMENTIN 875-125 MG TAB 1 tab by mouth twice daily with food 20 08/12/16 AUGMENTIN 875-125 MG TAB 800210 AMOXICILLIN-POT CLAVULA ANGELO Inactive NAPROXEN 500 MG TAB one tab PO BID NAPROXEN 500 MG TAB 272402 NAPROXEN Inactive PREDNISONE 20 MG TAB 2 tabs daily for 3 days, 1 t ab daily for 3 days, 1/2 tab daily for 2 days PREDNISONE 20 MG TAB 006045 PREDNISON E Inactive AZITHROMYCIN 250 MG TABS 2 po qd x 1 day, then 1 po qd x 4 days AZITHROMYCIN 250 MG TABS 0868457 AZITHROMYCIN Inactiv e PREDNISONE 20 MG TAB 2 tabs daily for 3 days, 1 t ab daily for 3 days, 1/2 tab daily for 2 days PREDNISONE 20 MG TAB 385853 PREDNISON E Inactive ZITHROMAX Z-EMIL 250 MG TABS 2 today, then 1 daily for 4 days 201 03/31/18 ZITHROMAX Z-EMIL 250 MG TABS 6148944 AZITHROMYCIN Inac tive CEFDINIR 300 MG CAPS 1 po BID x 10 days C EFDINIR 300 MG CAPS 651789 CEFDINIR Inactive CEFDINIR 300 MG CAPS 1 po BID x 10 days C EFDINIR 300 MG CAPS 482898 CEFDINIR Inactive Advance Directives Directive Description Start [...] Panel - Chemistry sodium, serum 136 mmol/L 396-124 4558/04/26 carbon dioxide, venous blood 29.9 mmol/L 21.0-32 [...] 11 .6-14.8 platelet count 284 10^3/MM^3 10*3/mm3 539-391 9430/04/26 erythrocyte (RBC) count 4.76 10^6/MM^3 10*6/mm3 4.04-5.4 8 lymphocytes as percent of blood leukocytes 20.6 % 20.5-51.1 monocytes as percent of blood leukocytes 7.1 % 1.7-9.3 neutrophils as percent of blood leukocytes 67.2 % 42.2-75.2 leukocyte count, blood 15.9 10^3/MM^3 10*3/mm3 4.6-10.2 Lab Report: Chlamydia/GC APTIMA/[id number] - Lab chlamydia DNA probe NOT DETECTED NOT DETECTED Lab Report: Chlamydia/GC APTIMA/[id number] - Microbiology Neisseria gonorrhoeae DNA probe NOT [...] ative Encounters Code Encounter Date Provider Facility CPT-52012 Level 4 Est. Patient 15:29:22 REAL ESTATE SALES SUPERVISOR Arie mcqueen MD [facility] CPT-78579 Level 3 Est. Patient 15:18:16 REAL ESTATE SALES SUPERVISOR Jono black [facility] CPT-10776 Level 4 Est. Patient 12:08:40 REAL ESTATE SALES SUPERVISOR Steve LANGUAGE ASSISTANT [facility] CPT-37618 Level 3 Est. Patient 09:24:42 CDT Steve LANGUAGE ASSISTANT [facility] CPT-27863 Level 3 Est. Patient 09:12:56 CDT Arie mcqueen MD [facility]-31854 Level 3 Est. Patient 16:40:54 CDT Jose Zhong MD [facility] CPT-93376 Level 2 Est. Patient 13:01:13 CDT Steve [facility]-57520 Level 3 Est. Patient 11:55:30 REAL ESTATE SALES SUPERVISOR Jono black [facility] CPT-40620 Level 3 Est. Patient 09:52:36 REAL ESTATE SALES SUPERVISOR Steve CABRERA [facility] CPT-43057 Level 3 Est. Patient 16:25:33 REAL ESTATE SALES SUPERVISOR Rich Rosales MD [facility] CPT-32492 Level 3 Est. Patient 20:33:55 CDT Arie mcqueen MD [facility] CPT-85701 Level 3 Est. Patient 14:18:20 CDT Rich Rosales MD [facility] CPT-00953 Level 4 Est. Patient 09:34:31 CDT Arie mcqueen MD [facility]-61818 Level 3 Est. Patient 09:08:55 REAL ESTATE SALES SUPERVISOR Liliana vincent MD PhD [facility] CPT-83715 Level 3 Est. Patient 16:44:07 REAL ESTATE SALES SUPERVISOR Arie mcqueen MD [facility] CPT-61190 Level 3 Est. Patient 10:44:27 CDT Arie mcqueen MD [facility] CPT-70152 Level 3 Est. Patient 08:55:41 CDT Jose Zhong MD [facility] CPT-29726 Level 3 Est. Patient 18:37:31 CDT Liliana vincent MD PhD [facility] CPT-48524 Level 3 Est. Patient 14:28:23 CDT Abelardo HERNANDEZ [facility] CPT-93775 Level 3 Est. Patient 15:18:13 REAL ESTATE SALES SUPERVISOR Arie mcqueen MD [facility] CPT-95554 Level 3 Est. Patient 10:11:29 REAL ESTATE SALES SUPERVISOR Arie mcqueen MD [facility] CPT-96980 Level 3 Est. Patient 10:55:57 REAL ESTATE SALES SUPERVISOR Jono black DO [facility] CPT-48589 Level 3 Est. Patient 17:29:05 CDT Arie mcqueen MD [facility] Procedures Code Procedure Name Date Entry Date Standard Desc ription CPT-35468 Sono transvag pelvis non OB uterus ovari es cervix - XRAY USE ONLY 08:58:14 REAL ESTATE SALES SUPERVISOR CPT-82719 UA w micro - LAB USE ONLY 16:04:56 REAL ESTATE SALES SUPERVISOR 2015 CPT-79686 Wet Prep/GEN - LAB USE ONLY 16:04:56 REAL ESTATE SALES SUPERVISOR 20 08/10/29 CPT-47611 First Vx - Ix admin via ID I M or jet injects without counseling by physician 16:57:10 CDT CPT-88501 Fluzone Preservative Free Intramuscular Suspension 16:57:10 CDT CPT-J0696 Rocephin 1000 mg (Ceftriaxone) 11:49:23 CDT CPT-J1040 Depo Medrol 80 mg (Methyl Prednisolone A cetate) 11:49:23 CDT CPT-J1100 Decadron 8mg (Dexamethasone) 11:49:23 CDT 2 CPT-94535 Abx/Therapy Injection 11:49:23 CDT CPT-39281 Abx/Therapy Injection 11:49:23 CDT CPT-99138 Abd compl w upright 09:07:26 REAL ESTATE SALES SUPERVISOR CPT-20964 Ear Wash 16:12:47 REAL ESTATE SALES SUPERVISOR CPT-OV Office Visit 11:12:01 CDT CPT-OV Office Visit 15:30:23 CDT CPT-53064 Sono pelvis non OB uterus ovaries cervix 15:50:44 CDT CPT-84141 Hand comp min 3V 16:42:32 CDT CPT-34840 Abd compl w upright 12:17:01 CDT CPT-60834 Nexplanon Placement 15:07:39 REAL ESTATE SALES SUPERVISOR CPT-90021 Removal of IUD 15:07:39 REAL ESTATE SALES SUPERVISOR CPT-83442 TB Tubersol 12:09:32 CDT CPT-80948 TB Tubersol 13:55:43 CDT
--- OUTSIDE RECORDS SUMMARY | 2020-03-03 08:26 | XMS REPORT | Clinical Summary ---
Author Author Admin, Diamante Marcelo Organization [facility] Address Unknown Phone Unavailable Allergies, Adverse Reactions, [...] with depression 300.4 Active Brii Ramirez l BACKPACKERS MANAGER Dysthymic disorder URI 465.9 Active Jono Gagnon DO Acu te upper respiratory infections of unspecified site Vaginal bleeding 623.8 Resolved Jose Zhong MD Other specified noninflammatory disorders of vagina High risk sexual behavior V69.2 Active Arie Casper MD High-risk sexual behavior GERD 530.81 Active Arie Casper MD Esophageal reflux Encounter for surveillance of implantable subdermal contraceptiv e Active Brii Petrona BACKPACKERS MANAGER Vaginal bleeding 623.8 Active Arie Casper MD Other specified noninflammatory disorders of vagina Influenza like illness 487.1 Active Jose Mcwilliams MD Influenza with other respiratory manifestations Sinusitis 473.9 Active Jessica Heaton BACKPACKERS MANAGER Unspecified sinusitis (chronic) COLON CANCER ICD-V16.0 Inactive [...] q12hr PRN Cough HYDROCOD POLST-CHLORPHEN POLST 5 [id number] No Longer Active Myrna Roberto MD Active ZITHROMAX Z-EMIL 250 MG TABS Take two tablets today and then 1 tablet daily for 4 days AZITHROMYCIN 30246841492 No Longer Active Flaco Rosales MD Active GUAIFENESIN DM 400-20 MG ORAL TABLET 1 pill by mouth t wice daily, if needed for cough DEXTROMETHORPHAN-GUAIFENESIN 85989430243 No Longer Active Rich Rosales MD Active CEFDINIR 300 MG ORAL CAPSULE 1 po BID x 10 days CEFDINIR 45283591791 No Longer Active Jessica Heaton APRN Active CHERATUSSIN AC 100-10 MG/5ML ORAL SYRUP 1 tsp by mouth every 4 hours as needed for cough GUAIFENESIN-CODEINE 73626730875 No Longe r Active Jessica Heaton APRN Active TAMIFLU 75 MG ORAL CAPSULE 1 po BID x 5 days 0 OSELTAMIVIR PHOSPHATE 65992282712 No Longer Active Jose Zhong MD Activ e ZITHROMAX Z-EMIL 250 MG ORAL TABLET 2 today, then 1 daily for 4 d ays AZITHROMYCIN 62497084987 No Longer Active Arie Casper MD Active PROTONIX 40 MG ORAL TABLET DELAYED RELEASE 1 po q a.m. PANTOPRAZOLE SODIUM 31909505654 No Longer Active Arie Casper MD Active BACTRIM DS 800-160 MG ORAL TABLET 1 tab by mouth twice daily 201 05/02/30 TRIMETHOPRIM-SULFAMETHOXAZOLE 02050757135 No Longer Active R [facility] Ty Active NEXPLANON IMPLANT right arm subcutaneously ETONOGESTREL IMPL 39460879974 No Longer Active Brii Russ APRN Active TUSSIONEX PENNKINETIC ER 10-8 MG/5ML ORAL SUSPENSION E XTENDED RELEASE 5ml po q12hr PRN Cough HYDROCOD POLST-CHLORPHEN POLST 5 2538838215 No Longer Active Brii Russ APRN Active CETIRIZINE HCL 10 MG ORAL TABLET 1 po qd PRN Allergies CETIRIZINE HCL 32137048005 No Longer Active Brii Russ APRN Activ e PREDNISONE 20 MG ORAL TABLET 2 tabs daily for 3 days, 1 tab daily for 3 days, 1/2 tab daily for 2 days PREDNISONE 60967407694 No Longer Active Arie Casper MD Active LOMOTIL 2.5-0.025 MG ORAL TABLET 1 tab po four times a day as needed for diarrhea DIPHENOXYLATE-ATROPINE 17341855339 No Lo nger Active Arie Casper MD Active ZOLOFT 50 MG ORAL TABLET 1 tablet by mouth daily 12/08 SERTRALINE HCL 21713366644 No Longer Active Arie Casper MD Ac tive NAPROXEN 500 MG ORAL TABLET Take 1 tab BID NAPR OXEN 02508624308 No Longer Active Arie Casper MD Active CEFDINIR 300 MG ORAL CAPSULE 1 po BID x 10 days CEFDINIR 67512986353 No Longer Active Brii Russ APRN Active PREDNISONE 20 MG ORAL TABLET 1 tablet daily for airway inflammat ion PREDNISONE 45390230317 No Longer Active Brii Russ APRN A ctive CEFDINIR 300 MG ORAL CAPSULE 1 po BID x 10 days CEFDINIR 40149145722 No Longer Active Jono Gagnon DO Active FLONASE 50 MCG/ACT NASAL SUSPENSION 1 spray each nostr il twice daily for allergies and runny nose until gone FLUT ICASONE PROPIONATE 04387912212 No Longer Active Jono Gagnon DO Active ALPRAZOLAM 0.25 MG ORAL TABLET 1 tablet by mouth every 8 hours as needed for stress ALPRAZOLAM 15379836013 No Longer Active Jono Gagnon DO Active ZITHROMAX Z-EMIL 250 MG ORAL TABLET 2 today, then 1 daily for 4 d ays AZITHROMYCIN 59135276731 No Longer Active Arie Casper MD Active PREDNISONE 20 MG ORAL TABLET 2 tabs daily for 3 days, 1 tab daily for 3 days, 1/2 tab daily for 2 days PREDNISONE 05087668377 No Longer Active Brii Russ APRN Active PREDNISONE 20 MG ORAL TABLET 1 tablet twice daily for 2 days, then 1 tablet once daily for 2 days PREDNISONE 18379084091 No Longer Active Brii Russ APRN Active PROMETHAZINE HCL 12.5 MG ORAL TABLET 1 tablet by mouth every 6 hours as needed for nausea/vomiting PROMETHAZINE HCL 44585355800 No L onger Active Jono Gagnon DO Active CITRATE OF MAGNESIA ORAL SOLUTION 1 bottle today for constipatio n MAGNESIUM CITRATE 82123920186 No Longer Active Jono Gangon DO Active ZOFRAN 4 MG ORAL TABLET 1 TAB PO Q 6 HRS PRN NAUSEA 20 07/10/15 ONDANSETRON HCL 09816137962 No Longer Active Brii Russ APRN Acti ve LOMOTIL 2.5-0.025 MG ORAL TABLET 1 to 2 four times a day as needed for diarrhea DIPHENOXYLATE-ATROPINE 16914985475 No Longer Active January Russ APRN Active AMOXICILLIN 500 MG ORAL TABLET 2 tabs twice a day for 10 days 20 07/09/11 AMOXICILLIN 09972253136 No Longer Active Brii Russ APRN Active CYCLOBENZAPRINE HCL 10 MG ORAL TABLET 1/2 - 1 tablet b y mouth three times daily as needed for muscle spasm/pain CYCLOBENZAPRINE HCL 92509767980 No Longer Active Arie Casper MD Active LOMOTIL 2.5-0.025 MG ORAL TABLET 1 to 2 four times a day as needed for diarrhea DIPHENOXYLATE-ATROPINE 36527606491 No Longer Active D freddy Casper MD Active MACROBID 100 MG ORAL CAPSULE 1 cap by mouth twice daily NITROFURANTOIN MONOHYD MACRO 25027923871 No Longer Active Arie Casper MD Active ZYRTEC ALLERGY 10 MG ORAL CAPSULE 1 po qd CE TIRIZINE HCL 09886475552 No Longer Active Arie Casper MD Active AZITHROMYCIN 250 MG ORAL TABLET 2 po qd x 1 day, then 1 po q d x 4 days AZITHROMYCIN 12712104345 No Longer Active Jessica salgado BACKPACKERS MANAGER Active PREDNISONE 20 MG ORAL TABLET 2 tabs daily for 3 days, 1 tab daily for 3 days, 1/2 tab daily for 2 days PREDNISONE 53111306089 No Longer Active Jessica Heaton BACKPACKERS MANAGER Active PROMETHAZINE HCL 25 MG ORAL TABLET 1 four times a day as nee ded for vomiting PROMETHAZINE HCL 84567828388 No Longer Active Myrna Roberto MD Active BACTRIM DS 800-160 MG ORAL TABLET 1 twice a day 05/30 SULFAMETHOXAZOLE-TRIMETHOPRIM 98354729834 No Longer Active Myrna Roberto MD Active VICKS DAYQUIL SEVERE COLD/FLU TABLET 1 tab every 6 hours prn 201 02/22/17 [id number] TABS 41344900102 No Longer Active Chris Roberto MD Active GUAIFENESIN-CODEINE 100-10 MG/5ML ORAL SYRUP 2 tsp every 6 hours prn GUAIFENESIN-CODEINE 36510830399 No Longer Active Myrna Roberto MD Active NAPROXEN 500 MG ORAL TABLET one tab PO BID NAPR OXEN 69165257159 No Longer Active Mryna Roberto MD Active AUGMENTIN 875-125 MG ORAL TABLET 1 tab by mouth twice daily with food AMOXICILLIN-POT CLAVULANATE 85548174094 No Longer Act zaid Liliana Estrada MD PhD Active AMOXICILLIN 500 MG ORAL CAPSULE 1 tab by mouth 3 times daily 201 02/21/05 AMOXICILLIN 76885065667 No Longer Active Liliana Estrada MD PhD Active TESSALON PERLES 100 MG ORAL CAPSULE 1 tablet by mouth 3 times da cory BENZONATATE 87138309729 No Longer Active Liliana Estrada MD PhD Active FLAGYL 500 MG ORAL TABLET 1 tablet by mouth two times daily 2014 METRONIDAZOLE 28071837644 No Longer Active Nilamnory Plattida Ac tive ZITHROMAX 250 MG ORAL TABLET 2 po today, then 1 po q days 2-5 20 06/08/16 AZITHROMYCIN 73612190934 No Longer Active Arie Casper MD Active VITAMINS 0.8 MG ORAL TABLET take 1 tab po qday [id number] 42085201115 No Longer Active Arie Casper MD Active IBUPROFEN 800 MG ORAL TABLET take one po Q 8 hours 201 02/01/16 IBUPROFEN 52945380924 No Longer Active Arie Casper MD Acti ve [facility] TUSSIN COUGH/COLD CF 5-10-100 MG/5ML ORAL LIQUID 2 teasp oons every 4 hours [id number] 15712651440 No Longer Active Blaine Casper MD Active COMTREX COLD/COUGH DAY/NITE MS 5-2-10-325 MG ORAL 2 caps deja ry 4 hours [id number] 30963409189 No Longer Active Landon Casper MD Active CHLORASEPTIC MAX SORE THROAT 15-10 MG MOUTH/THROAT LOZENGE 1 every 2 hours prn BENZOCAINE-MENTHOL 55448754572 No Longer Active Arie Casper MD Active PREDNISONE 20 MG ORAL TABLET 2 tabs daily for 3 days, 1 tab daily for 3 days, 1/2 tab daily for 2 days PREDNISONE 91537101719 No Longer Active Jose Zhong MD Active AZITHROMYCIN 250 MG ORAL TABLET 2 po qd x 1 day, then 1 po q d x 4 days AZITHROMYCIN 54174710104 No Longer Active Jose Mcwilliams MD Active ZOFRAN ODT 4 MG ORAL TABLET DISINTEGRATING 1 po q6hr PRN Nausea ONDANSETRON 52459163398 No Longer Active Rich Rosales MD Active ZOFRAN 4 MG ORAL TABLET 1 tablet every 4 hours ONDANSETRON HCL 39401268537 No Longer Active Rich Rosales MD Activ e MUCINEX 600 MG ORAL TABLET EXTENDED RELEASE 12 HOUR Ta ke 1-2 tablets every 12 hours GUAIFENESIN 52292987099 No Longer Active Rich Rosales MD Active BACTRIM 400-80 MG ORAL TABLET take one po BID SULFAMETHOXAZOLE-TRIMETHOPRIM 20707846554 No Longer Active Abelardo HERNANDEZ Active AZITHROMYCIN 500 MG ORAL TABLET 1 PO q day x 6 days 20 03/02/23 AZITHROMYCIN 47076771102 No Longer Active Tin HERNANDEZ Activ e ZITHROMAX 250 MG ORAL TABLET 2 po today, then 1 po q days 2-5 20 10/03/08 AZITHROMYCIN 96251315629 No Longer Active Arie Casper MD Active ZITHROMAX 250 MG ORAL TABLET 2 po today, then 1 po q days 2-5 20 09/23/25 AZITHROMYCIN 87260253145 No Longer Active Arie Casper MD Active AMOXICILLIN 500 MG ORAL CAPSULE 1 tab by mouth 3 times daily 201 11/24/09 AMOXICILLIN 10896285518 No Longer Active Arie Casper MD Active BACTRIM DS 800-160 MG ORAL TABLET 1 tab by mouth twice daily 201 11/03/14 TRIMETHOPRIM-SULFAMETHOXAZOLE 59179879958 No Longer Active Fozia Casper MD Active AMOXICILLIN 500 MG ORAL TABLET take 1 tab po TID 08/05 AMOXICILLIN 65596154434 No Longer Active Arie Casper MD Acti ve BACTRIM DS 800-160 MG ORAL TABLET 1 tab by mouth twice daily 201 11/03/14 BACTRIM DS 800-160 MG ORAL TABLET 015932 TRIMETHOPRIM-SULFAMETHOXAZOLE Inactive MUCINEX 600 MG ORAL TABLET EXTENDED RELEASE 12 HOUR Ta ke 1-2 tablets every 12 hours MUCINEX 600 MG ORAL TABLET EXTENDED RELEA SE 12 HOUR GUAIFENESIN Inactive ZOFRAN 4 MG ORAL TABLET 1 tablet every 4 hours ZOFRAN 4 MG ORAL TABLET 221369 ONDANSETRON HCL Inactive ZOFRAN ODT 4 MG ORAL TABLET DISINTEGRATING 1 po q6hr PRN Nausea ZOFRAN ODT 4 MG ORAL TABLET DISINTEGRATING 880460 ONDAN SETRON Inactive CHLORASEPTIC MAX SORE THROAT 15-10 MG MOUTH/THROAT LOZENGE 1 every 2 hours prn CHLORASEPTIC MAX SORE THROAT 15-10 MG MOUTH/THROAT LOZENGE BENZOCAINE-MENTHOL Inactive COMTREX COLD/COUGH DAY/NITE MS 5-2-10-325 MG ORAL 2 caps deja ry 4 hours COMTREX COLD/COUGH DAY/NITE MS 5-2-10-325 MG ORA L [id number] Inactive [facility] TUSSIN COUGH/COLD CF 5-10-100 MG/5ML ORAL LIQUID 2 teasp oons every 4 hours [facility] TUSSIN COUGH/COLD CF 5-10-100 MG/5ML ORAL LI QUID [id number] Inactive IBUPROFEN 800 MG ORAL TABLET take one po Q 8 hours 201 02/01/16 IBUPROFEN 800 MG ORAL TABLET IBUPROFEN Inactive VITAMINS 0.8 MG ORAL TABLET take 1 tab po qday VITAMINS 0.8 MG ORAL TABLET [id number] E-FA Inactive TESSALON PERLES 100 MG ORAL CAPSULE 1 tablet by mouth 3 times da cory TESSALON PERLES 100 MG ORAL CAPSULE 503081 BENZONATATE Inactive AMOXICILLIN 500 MG ORAL CAPSULE 1 tab by mouth 3 times daily 201 02/21/05 AMOXICILLIN 500 MG ORAL CAPSULE 831414 AMOXICILLIN Inactive GUAIFENESIN-CODEINE 100-10 MG/5ML ORAL SYRUP 2 tsp every 6 hours prn GUAIFENESIN-CODEINE 100-10 MG/5ML ORAL SYRUP 485213 GUAIFENESIN-CODEINE Inactive VICKS DAYQUIL SEVERE COLD/FLU TABLET 1 tab every 6 hours prn 201 02/22/17 VICKS DAYQUIL SEVERE COLD/FLU TABLET PHENYLEPHRI [id number] TABS Inactive BACTRIM DS 800-160 MG ORAL TABLET 1 twice a day 05/30 BACTRIM DS 800-160 MG ORAL TABLET 546246 SULFAMETHOXAZOLE-TRIMETHOPRIM Inactiv e PROMETHAZINE HCL 25 MG ORAL TABLET 1 four times a day as nee ded for vomiting PROMETHAZINE HCL 25 MG ORAL TABLET 951116 PROMETHAZINE HCL Inactive ZYRTEC ALLERGY 10 MG ORAL CAPSULE 1 po qd ZYRTEC ALLERGY 10 MG ORAL CAPSULE CETIRIZINE HCL Inactive MACROBID 100 MG ORAL CAPSULE 1 cap by mouth twice daily MACROBID 100 MG ORAL CAPSULE 1160872 NITROFURANTOIN MONOHYD MACRO In active LOMOTIL 2.5-0.025 MG ORAL TABLET 1 to 2 four times a day as needed for diarrhea LOMOTIL 2.5-0.025 MG ORAL TABLET 3390995 DIPHENOXYLATE-ATROPINE Inactive CYCLOBENZAPRINE HCL 10 MG ORAL TABLET 1/2 - 1 tablet b y mouth three times daily as needed for muscle spasm/pain CYCLOBEN ZAPRINE HCL 10 MG ORAL TABLET 283385 CYCLOBENZAPRINE HCL Inactive AMOXICILLIN 500 MG ORAL TABLET 2 tabs twice a day for 10 days 20 07/09/11 AMOXICILLIN 500 MG ORAL TABLET 173078 AMOXICILLIN I nactive LOMOTIL 2.5-0.025 MG ORAL TABLET 1 to 2 four times a day as needed for diarrhea LOMOTIL 2.5-0.025 MG ORAL TABLET 1008751 DIPHENOXYLATE-ATROPINE Inactive ZOFRAN 4 MG ORAL TABLET 1 TAB PO Q 6 HRS PRN NAUSEA 20 07/10/15 ZOFRAN 4 MG ORAL TABLET 142489 ONDANSETRON HCL Inactive CITRATE OF MAGNESIA ORAL SOLUTION 1 bottle today for constipatio n CITRATE OF MAGNESIA ORAL SOLUTION 8531939 MAGNESIUM CITR ATE Inactive PROMETHAZINE HCL 12.5 MG ORAL TABLET 1 tablet by mouth every 6 hours as needed for nausea/vomiting PROMETHAZINE HCL 12.5 MG ORA L TABLET 645402 PROMETHAZINE HCL Inactive PREDNISONE 20 MG ORAL TABLET 1 tablet twice daily for 2 days, then 1 tablet once daily for 2 days PREDNISONE 20 MG ORAL TABLET 291698 PREDNISONE Inactive ALPRAZOLAM 0.25 MG ORAL TABLET 1 tablet by mouth every 8 hours as needed for stress ALPRAZOLAM 0.25 MG ORAL TABLET 153882 ALPRA ZOLAM Inactive FLONASE 50 MCG/ACT NASAL SUSPENSION 1 spray each nostr il twice daily for allergies and runny nose until gone FLON ASE 50 MCG/ACT NASAL SUSPENSION 5557118 FLUTICASONE PROPIONATE Inactive PREDNISONE 20 MG ORAL TABLET 1 tablet daily for airway inflammat ion PREDNISONE 20 MG ORAL TABLET 493894 PREDNISONE Arlen ctive NAPROXEN 500 MG ORAL TABLET Take 1 tab BID NAPROXEN 500 MG ORAL TABLET 618906 NAPROXEN Inactive ZOLOFT 50 MG ORAL TABLET 1 tablet by mouth daily 12/08 ZOLOFT 50 MG ORAL TABLET 568742 SERTRALINE HCL Inactive LOMOTIL 2.5-0.025 MG ORAL TABLET 1 tab po four times a day as needed for diarrhea LOMOTIL 2.5-0.025 MG ORAL TABLET 8879002 DIPHENOXYLATE-ATROPINE Inactive CETIRIZINE HCL 10 MG ORAL TABLET 1 po qd PRN Allergies CETIRIZINE HCL 10 MG ORAL TABLET 4082211 CETIRIZINE HCL Inactiv e TUSSIONEX PENNKINETIC ER 10-8 MG/5ML ORAL SUSPENSION E XTENDED RELEASE 5ml po q12hr PRN Cough TUSSIONEX PENNKINETI C ER 10-8 MG/5ML ORAL SUSPENSION EXTENDED RELEASE HYDROCOD POLST-CHLORPHEN POLST I nactive NEXPLANON IMPLANT right arm subcutaneously NEXPLANON IMPLANT ETONOGESTREL IMPL Inactive PROTONIX 40 MG ORAL TABLET DELAYED RELEASE 1 po q a.m. PROTONIX 40 MG ORAL TABLET DELAYED RELEASE 500635 PANTOPRAZOLE SODI UM Inactive CHERATUSSIN AC 100-10 MG/5ML ORAL SYRUP 1 tsp by mouth every 4 hours as needed for cough CHERATUSSIN AC 100-10 MG/5ML ORAL SYRUP 9 21020 GUAIFENESIN-CODEINE Inactive GUAIFENESIN DM 400-20 MG ORAL [...] TID 08/05 AMOXICILLIN 500 MG ORAL TABLET 323474 AMOXICILLIN Inactive AMOXICILLIN 500 MG ORAL CAPSULE 1 tab by mouth 3 times daily 201 11/24/09 AMOXICILLIN 500 MG ORAL CAPSULE 553214 AMOXICILLIN Inactive ZITHROMAX 250 MG ORAL TABLET 2 po today, then 1 po q days 2-5 20 09/23/25 ZITHROMAX 250 MG ORAL TABLET 377018 AZITHROMYCIN Martin ctive ZITHROMAX 250 MG ORAL TABLET 2 po today, then 1 po q days 2-5 20 10/03/08 ZITHROMAX 250 MG ORAL TABLET 897507 AZITHROMYCIN Arlen ctive AZITHROMYCIN 500 MG ORAL TABLET 1 PO q day x 6 days 20 03/02/23 AZITHROMYCIN 500 MG ORAL TABLET 3527113 AZITHROMYCIN Inactive BACTRIM 400-80 MG ORAL TABLET take one po BID BACTRIM 400- 80 MG ORAL TABLET 117605 SULFAMETHOXAZOLE-TRIMETHOPRIM Inactive AZITHROMYCIN 250 MG ORAL TABLET 2 po qd x 1 day, then 1 po q d x 4 days AZITHROMYCIN 250 MG ORAL TABLET 733764 AZITHROMY ALLISON Inactive PREDNISONE 20 MG ORAL TABLET 2 tabs daily for 3 days, 1 tab daily for 3 days, 1/2 tab daily for 2 days PREDNISONE 20 MG ORAL T ABLET 082674 PREDNISONE Inactive ZITHROMAX 250 MG ORAL TABLET 2 po today, then 1 po q days 2-5 20 06/08/16 ZITHROMAX 250 MG ORAL TABLET 301888 AZITHROMYCIN Martin ctive FLAGYL 500 MG ORAL TABLET 1 tablet by mouth two times daily 2014 FLAGYL 500 MG ORAL TABLET 886655 METRONIDAZOLE Inacti ve AUGMENTIN 875-125 MG ORAL TABLET 1 tab by mouth twice daily with food AUGMENTIN 875-125 MG ORAL TABLET 624024 AMOXICIL ELSA-POT CLAVULANATE Inactive NAPROXEN 500 MG ORAL TABLET one tab PO BID NAPROXEN 500 MG ORAL TABLET 759226 NAPROXEN Inactive PREDNISONE 20 MG ORAL TABLET 2 tabs daily for 3 days, 1 tab daily for 3 days, 1/2 tab daily for 2 days PREDNISONE 20 MG ORAL T ABLET 239883 PREDNISONE Inactive AZITHROMYCIN 250 MG ORAL TABLET 2 po qd x 1 day, then 1 po q d x 4 days AZITHROMYCIN 250 MG ORAL TABLET 701383 AZITHROMY ALLISON Inactive PREDNISONE 20 MG ORAL TABLET 2 tabs daily for 3 days, 1 tab daily for 3 days, 1/2 tab daily for 2 days PREDNISONE 20 MG ORAL T ABLET 117078 PREDNISONE Inactive ZITHROMAX Z-EMLI 250 MG ORAL TABLET 2 today, then 1 daily for 4 d ays ZITHROMAX Z-EMIL 250 MG ORAL TABLET 439413 AZITHROMYCIN Inactive CEFDINIR 300 MG ORAL CAPSULE 1 po BID x 10 days 12/18 CEFDINIR 300 MG ORAL CAPSULE 840544 CEFDINIR Inactive CEFDINIR 300 MG ORAL CAPSULE 1 po BID x 10 days CEFDINIR 300 MG ORAL CAPSULE 20030127 CEFDINIR Inactive PREDNISONE 20 MG ORAL TABLET 2 tabs daily for 3 days, 1 tab daily for 3 days, 1/2 tab daily for 2 days PREDNISONE 20 MG ORAL T ABLET 232622 PREDNISONE Inactive BACTRIM DS 800-160 MG ORAL TABLET 1 tab by mouth twice daily 201 05/02/30 BACTRIM DS 800-160 MG ORAL TABLET 883343 TRIMETHOPRIM-SULFAMETHOXAZOLE Inactive ZITHROMAX Z-EMIL 250 MG ORAL TABLET 2 today, then 1 daily for 4 d ays ZITHROMAX Z-EMIL 250 MG ORAL TABLET 302452 AZITHROMYCIN Inactive TAMIFLU 75 MG ORAL CAPSULE 1 po BID x 5 days 0 TAMIFLU 75 MG ORAL CAPSULE 547984 OSELTAMIVIR PHOSPHATE Inactive CEFDINIR 300 MG ORAL CAPSULE 1 po BID x 10 days 01/03 CEFDINIR 300 MG ORAL CAPSULE 669002 CEFDINIR Inactive ZITHROMAX Z-EMIL 250 MG TABS Take two tablets today and then 1 tablet daily for 4 days ZITHROMAX Z-EMIL 250 MG TABS 470462 AZITHROM YCIN Inactive Advance Directives Directive Description [...] 11 .6-14.8 platelet count 263 10^3/MM^3 10*3/mm3 143-473 1298/11/09 erythrocyte (RBC) count 4.77 10^6/MM^3 10*6/mm3 3.80-5.8 [...] Negative Encounters Code Encounter Date Provider Facility CPT-55255 Level 3 Est. Patient 11:49:34 ASSOCIATE FINANCIAL ANALYST Jessica boyd [facility] CPT-15464 Level 3 Est. Patient 14:55:50 ASSOCIATE FINANCIAL ANALYST Jose Zhong MD [facility] CPT-78896 Level 3 Est. Patient 10:21:41 ASSOCIATE FINANCIAL ANALYST Arie mcqueen MD [facility] CPT-78435 Level 3 Est. Patient 11:35:15 ASSOCIATE FINANCIAL ANALYST Arie mcqueen MD [facility] CPT-74345 Level 3 Est. Patient 15:40:28 CDT Brii escalante [facility] CPT-23725 Level 3 Est. Patient 16:40:36 CDT Arie mcqueen MD [facility] CPT-67932 Level 4 Est. Patient 15:29:22 ASSOCIATE FINANCIAL ANALYST Arie mcqueen MD [facility] CPT-39704 Level 3 Est. Patient 15:18:16 ASSOCIATE FINANCIAL ANALYST Jono W L ee [facility] CPT-66324 Level 4 Est. Patient 12:08:40 ASSOCIATE FINANCIAL ANALYST Brii Are ll [facility] CPT-63396 Level 3 Est. Patient 09:24:42 CDT Brii Are ll [facility] CPT-45022 Level 3 Est. Patient 09:12:56 CDT Arie mcqueen MD [facility] CPT-27071 Level 3 Est. Patient 16:40:54 CDT Jose Zhong MD [facility] CPT-82696 Level 2 Est. Patient 13:01:13 CDT Brii Are ll [facility] CPT-93396 Level 3 Est. Patient 11:55:30 ASSOCIATE FINANCIAL ANALYST Jono black [facility] CPT-23703 Level 3 Est. Patient 09:52:36 ASSOCIATE FINANCIAL ANALYST Brii Are ll [facility] CPT-53037 Level 3 Est. Patient 16:25:33 ASSOCIATE FINANCIAL ANALYST Rich Rosales MD [facility] CPT-72277 Level 3 Est. Patient 20:33:55 CDT Arie mcqueen MD [facility] CPT-86311 Level 3 Est. Patient 14:18:20 CDT Rich Rosales MD [facility] CPT-28058 Level 4 Est. Patient 09:34:31 CDT Arie mcqueen MD [facility] CPT-97937 Level 3 Est. Patient 09:08:55 ASSOCIATE FINANCIAL ANALYST Liliana vincent MD PhD [facility] CPT-58920 Level 3 Est. Patient 16:44:07 ASSOCIATE FINANCIAL ANALYST Arie mcqueen MD [facility] CPT-38849 Level 3 Est. Patient 10:44:27 CDT Arie mcqueen MD [facility] CPT-52614 Level 3 Est. Patient 08:55:41 CDT Jose Zhong MD [facility] CPT-94013 Level 3 Est. Patient 18:37:31 CDT Liliana vincent MD PhD [facility] CPT-72093 Level 3 Est. Patient 14:28:23 CDT Abelardo HERNANDEZ [facility] CPT-77885 Level 3 Est. Patient 15:18:13 ASSOCIATE FINANCIAL ANALYST Arie mcqueen MD [facility] CPT-14979 Level 3 Est. Patient 10:11:29 ASSOCIATE FINANCIAL ANALYST Arie mcqueen MD [facility] CPT-39302 Level 3 Est. Patient 10:55:57 ASSOCIATE FINANCIAL ANALYST Jono black DO [facility] CPT-90634 Level 3 Est. Patient 17:29:05 CDT Arie mcqueen MD [facility] Procedures Code Procedure Name Date Entry Date Standard Desc ription CPT-82578 Nexplanon Removal 15:40:28 CDT CPT-85966 Sono transvag pelvis non OB uterus ovari es cervix - XRAY USE ONLY 08:58:14 ASSOCIATE FINANCIAL ANALYST CPT-89025 UA w micro - LAB USE ONLY 16:04:56 ASSOCIATE FINANCIAL ANALYST 2015 CPT-24328 Wet Prep/GEN - LAB USE ONLY 16:04:56 ASSOCIATE FINANCIAL ANALYST 20 08/10/29 CPT-06641 First Vx - Ix admin via ID I M or jet injects without counseling by physician 16:57:10 CDT CPT-01031 Fluzone Preservative Free Intramuscular Suspension 16:57:10 CDT CPT-J0696 Rocephin 1000 mg (Ceftriaxone) 11:49:23 CDT CPT-J1040 Depo Medrol 80 mg (Methyl Prednisolone A cetate) 11:49:23 CDT CPT-J1100 Decadron 8mg (Dexamethasone) 11:49:23 CDT 2 CPT-80816 Abx/Therapy Injection 11:49:23 CDT CPT-00509 Abx/Therapy Injection 11:49:23 CDT CPT-03774 Abd compl w upright 09:07:26 ASSOCIATE FINANCIAL ANALYST CPT-66950 Ear Wash 16:12:47 ASSOCIATE FINANCIAL ANALYST CPT-OV Office Visit 11:12:01 CDT CPT-OV Office Visit 15:30:23 CDT CPT-74928 Sono pelvis non OB uterus ovaries cervix 15:50:44 CDT CPT-86881 Hand comp min 3V 16:42:32 CDT CPT-32755 Abd compl w upright 12:17:01 CDT CPT-38195 Nexplanon Placement 15:07:39 ASSOCIATE FINANCIAL ANALYST CPT-62788 Removal of IUD 15:07:39 ASSOCIATE FINANCIAL ANALYST CPT-91559 TB Tubersol 12:09:32 CDT CPT-39300 TB Tubersol 13:55:43 CDT
--- OUTSIDE RECORDS SUMMARY | 2020-03-03 08:27 | XMS REPORT | Clinical Summary ---
Author Author Admin, Diamante Marcelo Organization [employer] Address Unknown Phone Unavailable Allergies, Adverse Reactions, [...] site Abdominal pain 789.00 Active Brii Larson ANIMAL CARE ASSISTANT Abdominal pain, unspecified site Diarrhea 787.91 [...] cute pharyngitis Nausea 787.02 Active Brii Larson ANIMAL CARE ASSISTANT Nausea alone URI 465.9 Active Jono [...] Anxiety with depression 300.4 Active Glenn Larson ANIMAL CARE ASSISTANT Dysthymic disorder URI 465.9 Active Jono [...] MG TAB Take 1 tab BID NAPROXEN 887113728 15 Active Brii Larson APRN Active NEXPLANON IMPL Left arm subcutaneously ETONOGES TREL IMPL 61391755400 Active Brii Larson APRN Active CEFDINIR 300 MG CAPS 1 po BID x 10 days CEFDINI R 46341210527 Active Brii Larson APRN Active PREDNISONE 20 MG TAB 1 tablet daily for airway inflammation 2015 PREDNISONE 12840084029 No Longer Active Brii Larson APRN Active CEFDINIR 300 MG CAPS 1 po BID x 10 days CEFDINI R 91461517967 No Longer Active Jono Gagnon DO Active FLONASE 50 MCG/ACT SUSP 1 spray each nostril twice d aily for allergies and runny nose until gone FLUTICASONE PROPIONATE No Longe r Active Jono Gagnon DO Active ALPRAZOLAM 0.25 MG TAB 1 tablet by mouth every 8 hours as ne eded for stress ALPRAZOLAM 62692952587 No Longer Active Jono Gagnon DO Active ZOLOFT 50 MG TAB 1 tablet by mouth daily SERTRA LINE HCL 17286101521 Active Arie Casper MD Active LOMOTIL 2.5-0.025 MG TAB 1 tab po four times a day as needed for diarrhea DIPHENOXYLATE-ATROPINE 47419540634 Active Brii Larson APRN Active ZITHROMAX Z-EMIL 250 MG TABS 2 today, then 1 daily for 4 days 201 03/31/18 AZITHROMYCIN 89953866700 No Longer Active Arie Casper MD Active PROTONIX 40 MG ORAL TBEC 1 po q a.m. PANTOPRAZO LE SODIUM 33627024642 Active Carline Ochoa RPT,RMA Active PREDNISONE 20 MG TAB 2 tabs daily for 3 days, 1 t ab daily for 3 days, 1/2 tab daily for 2 days PREDNISONE 43521521057 No Longer Active Brii Larson APRN Active PREDNISONE 20 MG TAB 1 tablet twice daily for 2 d ays, then 1 tablet once daily for 2 days PREDNISONE 30125602052 No Longer Active Brii Larson APRN Active PROMETHAZINE HCL 12.5 MG TABS 1 tablet by mouth every 6 hours as needed for nausea/vomiting PROMETHAZINE HCL 82158702868 No Longe r Active Jono Gagnon DO Active CITRATE OF MAGNESIA ORAL SOLN 1 bottle today for constipation 20 07/10/15 MAGNESIUM CITRATE 72467806399 No Longer Active Jono Gagnon DO Active ZOFRAN 4 MG ORAL TABS 1 TAB PO Q 6 HRS PRN NAUSEA 2014 ONDANSETRON HCL 23573774137 No Longer Active Brii Larson APRN A ctive LOMOTIL 2.5-0.025 MG TAB 1 to 2 four times a day as needed f or diarrhea DIPHENOXYLATE-ATROPINE 92107065315 No Longer Active January Larson APRN Active AMOXICILLIN 500 MG TABS 2 tabs twice a day for 10 days AMOXICILLIN 96478896775 No Longer Active Brii Larson APRN Acti ve CYCLOBENZAPRINE HCL 10 MG TABS 1/2 - 1 tablet by mouth three times daily as needed for muscle spasm/pain CYCLOBENZAPRINE HCL 99572857646 No Longer Active Arie Casper MD Active LOMOTIL 2.5-0.025 MG TABS 1 to 2 four times a day as needed for diarrhea DIPHENOXYLATE-ATROPINE 37374790627 No Longer Active D freddy Casper MD Active MACROBID 100 MG CAP 1 cap by mouth twice daily NITROFURANTOIN MONOHYD MACRO 63873014505 No Longer Active Arie Casper MD Active ZYRTEC ALLERGY 10 MG CAPS 1 po qd CETIRIZINE HCL 75315875191 No Longer Active Arie Casper MD Active AZITHROMYCIN 250 MG TABS 2 po qd x 1 day, then 1 po qd x 4 days AZITHROMYCIN 20756830492 No Longer Active Jillisael Frazelanette CABRERA Active PREDNISONE 20 MG TAB 2 tabs daily for 3 days, 1 t ab daily for 3 days, 1/2 tab daily for 2 days PREDNISONE 40405714818 No Longer Active Jillina Frazell RICK Active PROMETHAZINE HCL 25 MG TABS 1 four times a day as needed for vomiting PROMETHAZINE HCL 55710572033 No Longer Active Myrna Roberto MD Active BACTRIM DS 800-160 MG TABS 1 twice a day SULFAMETHOXAZOLE-TRIMETHOPRIM 76447055327 No Longer Active Myrna Roberto MD Active VICKS DAYQUIL SEVERE COLD/FLU TABS 1 tab every 6 hours prn 12/10 [id number]-APAP TABS 89944976658 No Longer Active Myrna leigh MD Active GUAIFENESIN-CODEINE 100-10 MG/5ML ORAL SYRP 2 tsp every 6 hours prn GUAIFENESIN-CODEINE 51069505885 No Longer Active Myrna Roberto MD Active NAPROXEN 500 MG TAB one tab PO BID NAPROXEN 332 81445567 No Longer Active Myrna Roberto MD Active AUGMENTIN 875-125 MG TAB 1 tab by mouth twice daily with food 20 08/12/16 AMOXICILLIN-POT CLAVULANATE 07391483066 No Longer Active Liliana Estrada MD PhD Active AMOXICILLIN 500 MG CAP 1 tab by mouth 3 times daily 08/12/16 AMOXICILLIN 96349466391 No Longer Active Liliana Estrada MD PhD Acti ve TESSALON PERLES 100 MG CAP 1 tablet by mouth 3 times daily 11/01 BENZONATATE 64689848580 No Longer Active Liliana Estrada MD PhD Active FLAGYL 500 MG TAB 1 tablet by mouth two times daily 07/11/29 METRONIDAZOLE 56049565799 No Longer Active Nilam Weber Active ZITHROMAX 250 MG TAB 2 po today, then 1 po q days 2-5 AZITHROMYCIN 86680773643 No Longer Active Arie Casper MD Acti ve VITAMINS 0.8 MG TABS take 1 tab po qday 08/08 [id number] 94518486350 No Longer Active Arie Casper MD Active IBUPROFEN 800 MG TABS take one po Q 8 hours IBU PROFEN 41099036883 No Longer Active Arie Casper MD Active [facility] TUSSIN COUGH/COLD CF 5-10-100 MG/5ML LIQD 2 teaspoons ev eliud 4 hours [id number] 39151126435 No Longer Active Blaine Casper MD Active COMTREX COLD/COUGH DAY/NITE MS 5-2-10-325 MG MISC 2 caps deja ry 4 hours [id number] 13598190787 No Longer Active Landon Casper MD Active CHLORASEPTIC MAX SORE THROAT 15-10 MG LOZG 1 every 2 hours prn 2 BENZOCAINE-MENTHOL 13484195746 No Longer Active Arie Marcelo Active PREDNISONE 20 MG TAB 2 tabs daily for 3 days, 1 t ab daily for 3 days, 1/2 tab daily for 2 days PREDNISONE 21303040823 No Longer Active Jose Zhong MD Active AZITHROMYCIN 250 MG TABS 2 po qd x 1 day, then 1 po qd x 4 days AZITHROMYCIN 14204900367 No Longer Active Jose Zhong MD Active ZOFRAN ODT 4 MG TBDP 1 po q6hr PRN Nausea ONDAN SETRON 25489109266 No Longer Active Rich Rosales MD Active ZOFRAN 4 MG TABS 1 tablet every 4 hours ONDANSE JERRELL HCL 34838114009 No Longer Active Rich Rosales MD Active MUCINEX 600 MG [id number] Take 1-2 tablets every 12 hours GUAIFENESIN 02767914192 No Longer Active Rich Rosales MD Activ e BACTRIM 400-80 MG TABS take one po BID SULFAMETHOXAZOLE-TRIMETHOPRIM 50536274781 No Longer Active Abelardo HERNANDEZ Active AZITHROMYCIN 500 MG TABS 1 PO q day x 6 days AZ ITHROMYCIN 20232038812 No Longer Active Tin HERNANDEZ Active ZITHROMAX 250 MG TAB 2 po today, then 1 po q days 2-5 AZITHROMYCIN 99353099301 No Longer Active Arie Casper MD Acti ve ZITHROMAX 250 MG TAB 2 po today, then 1 po q days 2-5 AZITHROMYCIN 04508770559 No Longer Active Arie Casper MD Acti ve AMOXICILLIN 500 MG CAP 1 tab by mouth 3 times daily 20 09/23/20 AMOXICILLIN 51686040918 No Longer Active Arie Casper MD Acti ve BACTRIM DS 800-160 MG TAB 1 tab by mouth twice daily 2 TRIMETHOPRIM-SULFAMETHOXAZOLE 24855739150 No Longer Active Arie Casper MD Active AMOXICILLIN 500 MG TABS take 1 tab po TID AMOXI CILLIN 12236413620 No Longer Active Arie Casper MD Active BACTRIM DS 800-160 MG TAB 1 tab by mouth twice daily 2 BACTRIM DS 800-160 MG TAB 933748 TRIMETHOPRIM-SULFAMETHOXAZOLE Inac tive MUCINEX 600 MG [id number] Take 1-2 tablets every 12 hours MUCINEX 600 MG [id number] GUAIFENESIN Inactive ZOFRAN 4 MG TABS 1 tablet every 4 hours ZOFRAN 4 MG TABS 507264 ONDANSETRON HCL Inactive ZOFRAN ODT 4 MG TBDP 1 po q6hr PRN Nausea ZOFRAN ODT 4 MG TBDP 657560 ONDANSETRON Inactive CHLORASEPTIC MAX SORE THROAT 15-10 MG LOZG 1 every 2 hours prn 2 CHLORASEPTIC MAX SORE THROAT 15-10 MG LOZG BENZO ARINA-MENTHOL Inactive COMTREX COLD/COUGH DAY/NITE MS 5-2-10-325 MG MISC 2 caps deja ry 4 hours COMTREX COLD/COUGH DAY/NITE MS 5-2-10-325 MG MIS C [id number]-APAP Inactive [facility] TUSSIN COUGH/COLD CF 5-10-100 MG/5ML LIQD 2 teaspoons ev eliud 4 hours [facility] TUSSIN COUGH/COLD CF 5-10-100 MG/5ML LIQD [id number] Inactive IBUPROFEN 800 MG TABS take one po Q 8 hours IBUPROFEN 800 MG TABS IBUPROFEN Inactive VITAMINS 0.8 MG TABS take 1 tab po qday 08/08 VITAMINS 0.8 MG TABS [id number] Inactive TESSALON PERLES 100 MG CAP 1 tablet by mouth 3 times daily 11/01 TESSALON PERLES 100 MG CAP 685540 BENZONATATE Inact zaid AMOXICILLIN 500 MG CAP 1 tab by mouth 3 times daily 08/12/16 AMOXICILLIN 500 MG CAP 535130 AMOXICILLIN Inactive GUAIFENESIN-CODEINE 100-10 MG/5ML ORAL SYRP 2 tsp every 6 hours prn GUAIFENESIN-CODEINE 100-10 MG/5ML ORAL SYRP 416841 GUAIFENESIN-CODEINE Inactive VICKS DAYQUIL SEVERE COLD/FLU TABS 1 tab every 6 hours prn 12/10 VICKS DAYQUIL SEVERE COLD/FLU TABS PHENYLEPHRINE -DM-GG-APAP TABS Inactive BACTRIM DS 800-160 MG TABS 1 twice a day BACTRIM DS 800- 160 MG TABS 782680 SULFAMETHOXAZOLE-TRIMETHOPRIM Inactive PROMETHAZINE HCL 25 MG TABS 1 four times a day as needed for vomiting PROMETHAZINE HCL 25 MG TABS 615570 PROMETHAZINE HCL Inactive ZYRTEC ALLERGY 10 MG CAPS 1 po qd ZY RTEC ALLERGY 10 MG CAPS CETIRIZINE HCL Inactive MACROBID 100 MG CAP 1 cap by mouth twice daily MACROBID 100 MG CAP 3288870 NITROFURANTOIN MONOHYD MACRO Inactive LOMOTIL 2.5-0.025 MG TABS 1 to 2 four times a day as needed for diarrhea LOMOTIL 2.5-0.025 MG TABS 4182974 DIPHENOXYLATE-A TROPINE Inactive CYCLOBENZAPRINE HCL 10 MG TABS 1/2 - 1 tablet by mouth three times daily as needed for muscle spasm/pain CYCLOBENZAP RINE HCL 10 MG TABS 479161 CYCLOBENZAPRINE HCL Inactive AMOXICILLIN 500 MG TABS 2 tabs twice a day for 10 days AMOXICILLIN 500 MG TABS 019204 AMOXICILLIN Inactive LOMOTIL 2.5-0.025 MG TAB 1 to 2 four times a day as needed f or diarrhea LOMOTIL 2.5-0.025 MG TAB 8484545 DIPHENOXYLATE-AT ROPINE Inactive ZOFRAN 4 MG ORAL TABS 1 TAB PO Q 6 HRS PRN NAUSEA 2014 ZOFRAN 4 MG ORAL TABS 793283 ONDANSETRON HCL Inactive CITRATE OF MAGNESIA ORAL SOLN 1 bottle today for constipation 20 07/10/15 CITRATE OF MAGNESIA ORAL SOLN 6004759 MAGNESIUM CITRATE Inactive PROMETHAZINE HCL 12.5 MG TABS 1 tablet by mouth every 6 hours as needed for nausea/vomiting PROMETHAZINE HCL 12.5 MG TABS 476353 PROMETHAZINE HCL Inactive PREDNISONE 20 MG TAB 1 tablet twice daily for 2 d ays, then 1 tablet once daily for 2 days PREDNISONE 20 MG TAB 068840 PREDNISONE Inac tive ALPRAZOLAM 0.25 MG TAB 1 tablet by mouth every 8 hours as ne eded for stress ALPRAZOLAM 0.25 MG TAB 184082 ALPRAZOLAM Inact zaid FLONASE 50 MCG/ACT SUSP 1 spray each nostril twice d aily for allergies and runny nose until gone FLONASE 50 MCG/ACT SUSP F LUTICASONE PROPIONATE Inactive PREDNISONE 20 MG TAB 1 tablet daily for airway inflammation 2015 PREDNISONE 20 MG TAB 135988 PREDNISONE Inactive AMOXICILLIN 500 MG TABS take 1 tab po TID AMOXICILLIN 500 MG TABS 525351 AMOXICILLIN Inactive AMOXICILLIN 500 MG CAP 1 tab by mouth 3 times daily 09/23/20 AMOXICILLIN 500 MG CAP 170686 AMOXICILLIN Inactive ZITHROMAX 250 MG TAB 2 po today, then 1 po q days 2-5 ZITHROMAX 250 MG TAB 6829440 AZITHROMYCIN Inactive ZITHROMAX 250 MG TAB 2 po today, then 1 po q days 2-5 ZITHROMAX 250 MG TAB 6726344 AZITHROMYCIN Inactive AZITHROMYCIN 500 MG TABS 1 PO q day x 6 days 3 AZITHROMYCIN 500 MG TABS 2582548 AZITHROMYCIN Inactive BACTRIM 400-80 MG TABS take one po BID BA CTRIM 400-80 MG TABS 680281 SULFAMETHOXAZOLE-TRIMETHOPRIM Inactive AZITHROMYCIN 250 MG TABS 2 po qd x 1 day, then 1 po qd x 4 days AZITHROMYCIN 250 MG TABS 7083419 AZITHROMYCIN Inactiv e PREDNISONE 20 MG TAB 2 tabs daily for 3 days, 1 t ab daily for 3 days, 1/2 tab daily for 2 days PREDNISONE 20 MG TAB 652505 PREDNISON E Inactive ZITHROMAX 250 MG TAB 2 po today, then 1 po q days 2-5 ZITHROMAX 250 MG TAB 1707432 AZITHROMYCIN Inactive FLAGYL 500 MG TAB 1 tablet by mouth two times daily 07/11/29 FLAGYL 500 MG TAB 491163 METRONIDAZOLE Inactive AUGMENTIN 875-125 MG TAB 1 tab by mouth twice daily with food 20 08/12/16 AUGMENTIN 875-125 MG TAB 660321 AMOXICILLIN-POT CLAVULA ANGELO Inactive NAPROXEN 500 MG TAB one tab PO BID NAPROXEN 500 MG TAB 617544 NAPROXEN Inactive PREDNISONE 20 MG TAB 2 tabs daily for 3 days, 1 t ab daily for 3 days, 1/2 tab daily for 2 days PREDNISONE 20 MG TAB 722914 PREDNISON E Inactive AZITHROMYCIN 250 MG TABS 2 po qd x 1 day, then 1 po qd x 4 days AZITHROMYCIN 250 MG TABS 3762009 AZITHROMYCIN Inactiv e PREDNISONE 20 MG TAB 2 tabs daily for 3 days, 1 t ab daily for 3 days, 1/2 tab daily for 2 days PREDNISONE 20 MG TAB 662474 PREDNISON E Inactive ZITHROMAX Z-EMIL 250 MG TABS 2 today, then 1 daily for 4 days 201 03/31/18 ZITHROMAX Z-EMIL 250 MG TABS 8685083 AZITHROMYCIN Inac tive CEFDINIR 300 MG CAPS 1 po BID x 10 days C EFDINIR 300 MG CAPS 672366 CEFDINIR Inactive Advance Directives Directive Description Start [...] Panel - Chemistry sodium, serum 136 mmol/L 691-760 3859/04/26 carbon dioxide, venous blood 29.9 mmol/L 21.0-32 [...] pH, urine, semiquantitative 7.0 5.0-8.5 Lab Report: [facility], UADIP W/MICRO, AUTO - Chemistry [...] Negative Encounters Code Encounter Date Provider Facility CPT-17983 Level 4 Est. Patient 12:08:40 ASSOCIATE SOFTWARE DEVELOPER Steve ANIMAL CARE ASSISTANT [facility] CPT-13903 Level 3 Est. Patient 09:24:42 CDT Steve [facility] CPT-04002 Level 3 Est. Patient 09:12:56 CDT Arie mcqueen MD [facility] CPT-52452 Level 3 Est. Patient 16:40:54 CDT Jose Zhong MD [facility] CPT-20170 Level 2 Est. Patient 13:01:13 CDT Steve [facility] CPT-60448 Level 3 Est. Patient 11:55:30 ASSOCIATE SOFTWARE DEVELOPER Jono black DO [facility] CPT-82114 Level 3 Est. Patient 09:52:36 ASSOCIATE SOFTWARE DEVELOPER Steve CABRERA [facility] CPT-15434 Level 3 Est. Patient 16:25:33 ASSOCIATE SOFTWARE DEVELOPER Rich Rosales MD [facility] CPT-47892 Level 3 Est. Patient 20:33:55 CDT Arie mcqueen MD [facility] CPT-13735 Level 3 Est. Patient 14:18:20 CDT Rich Rosales MD [facility] CPT-43108 Level 4 Est. Patient 09:34:31 CDT Arie mcqueen MD [facility] CPT-36469 Level 3 Est. Patient 09:08:55 ASSOCIATE SOFTWARE DEVELOPER Liliana vincent MD PhD [facility] CPT-57491 Level 3 Est. Patient 16:44:07 ASSOCIATE SOFTWARE DEVELOPER Arie mcqueen MD [facility] CPT-41200 Level 3 Est. Patient 10:44:27 CDT Arie mcqueen MD [facility] CPT-17024 Level 3 Est. Patient 08:55:41 CDT Jose Zhong MD [facility] CPT-13374 Level 3 Est. Patient 18:37:31 CDT Liliana vincent MD PhD [facility] CPT-82464 Level 3 Est. Patient 14:28:23 CDT Abelardo HERNANDEZ [facility] CPT-78253 Level 3 Est. Patient 15:18:13 ASSOCIATE SOFTWARE DEVELOPER Arie mcqueen MD [facility] CPT-00548 Level 3 Est. Patient 10:11:29 ASSOCIATE SOFTWARE DEVELOPER Arie mcqueen MD [facility] CPT-14833 Level 3 Est. Patient 10:55:57 ASSOCIATE SOFTWARE DEVELOPER Jono black DO [facility] CPT-94363 Level 3 Est. Patient 17:29:05 CDT Arie mcqueen MD [facility] Procedures Code Procedure Name Date Entry Date Standard Desc ription CPT-74916 UA w micro - LAB USE ONLY 16:04:56 ASSOCIATE SOFTWARE DEVELOPER 2015 CPT-62164 Wet Prep/GEN - LAB USE ONLY 16:04:56 ASSOCIATE SOFTWARE DEVELOPER 20 08/10/29 CPT-33412 First Vx - Ix admin via ID I M or jet injects without counseling by physician 16:57:10 CDT CPT-11100 Fluzone Preservative Free Intramuscular Suspension 16:57:10 CDT CPT-J0696 Rocephin 1000 mg (Ceftriaxone) 11:49:23 CDT CPT-J1040 Depo Medrol 80 mg (Methyl Prednisolone A cetate) 11:49:23 CDT CPT-J1100 Decadron 8mg (Dexamethasone) 11:49:23 CDT 2 CPT-55776 Abx/Therapy Injection 11:49:23 CDT CPT-65404 Abx/Therapy Injection 11:49:23 CDT CPT-78025 Abd compl w upright 09:07:26 ASSOCIATE SOFTWARE DEVELOPER CPT-54108 Ear Wash 16:12:47 ASSOCIATE SOFTWARE DEVELOPER CPT-OV Office Visit 11:12:01 CDT CPT-OV Office Visit 15:30:23 CDT CPT-29512 Sono pelvis non OB uterus ovaries cervix 15:50:44 CDT CPT-43843 Hand comp min 3V 16:42:32 CDT CPT-23061 Abd compl w upright 12:17:01 CDT CPT-39152 Nexplanon Placement 15:07:39 ASSOCIATE SOFTWARE DEVELOPER CPT-97025 Removal of IUD 15:07:39 ASSOCIATE SOFTWARE DEVELOPER CPT-68668 TB Tubersol 12:09:32 CDT CPT-51772 TB Tubersol 13:55:43 CDT
--- OUTSIDE RECORDS SUMMARY | 2020-03-03 08:27 | XMS REPORT | Clinical Summary ---
Author Author Admin, Diamante Marcelo Organization [employer] Address Unknown Phone Unavailable Allergies, Adverse Reactions, [...] pain, unspecified site Abdominal pain 789.00 Active rBii Russ APRN Abdominal pain, unspecified site Diarrhea [...] implantable subdermal contraceptiv e Active Brii Russ [employer] Vaginal bleeding 623.8 Active Arie Casper MD Other specified noninflammatory disorders of vagina Influenza like illness 487.1 Active Jose Mcwilliams MD Influenza with other respiratory manifestations Sinusitis 473.9 Active Jessica Heaton [employer] Unspecified sinusitis (chronic) BREAST CANCER ICD-V16.3 Inactive [...] q12hr PRN Cough HYDROCOD POLST-CHLORPHEN POLST 5 8430313465 No Longer Active Myrna Roberto MD Active ZITHROMAX Z-EMIL 250 MG TABS Take two tablets today and then 1 tablet daily for 4 days AZITHROMYCIN 81766608444 No Longer Active Flaco Rosales MD Active GUAIFENESIN DM 400-20 MG ORAL TABLET 1 pill by mouth t wice daily, if needed for cough DEXTROMETHORPHAN-GUAIFENESIN 46837984919 No Longer Active Rich Rosales MD Active CEFDINIR 300 MG ORAL CAPSULE 1 po BID x 10 days CEFDINIR 44119367712 No Longer Active Jessica Heaton APRN Active CHERATUSSIN AC 100-10 MG/5ML ORAL SYRUP 1 tsp by mouth every 4 hours as needed for cough GUAIFENESIN-CODEINE 97973489215 No Longe r Active Jessica Heaton APRN Active TAMIFLU 75 MG ORAL CAPSULE 1 po BID x 5 days 0 OSELTAMIVIR PHOSPHATE 01264694947 No Longer Active Jose Zhong MD Activ e ZITHROMAX Z-EMIL 250 MG ORAL TABLET 2 today, then 1 daily for 4 d ays AZITHROMYCIN 03860168854 No Longer Active Arie Casper MD Active PROTONIX 40 MG ORAL TABLET DELAYED RELEASE 1 po q a.m. PANTOPRAZOLE SODIUM 71119537684 No Longer Active Arie Casper MD Active BACTRIM DS 800-160 MG ORAL TABLET 1 tab by mouth twice daily 201 05/02/30 TRIMETHOPRIM-SULFAMETHOXAZOLE 40703133944 No Longer Active [facility] Active NEXPLANON IMPLANT right arm subcutaneously ETONOGESTREL IMPL 82984058808 No Longer Active Brii Russ APRN Active TUSSIONEX PENNKINETIC ER 10-8 MG/5ML ORAL SUSPENSION E XTENDED RELEASE 5ml po q12hr PRN Cough HYDROCOD POLST-CHLORPHEN POLST 5 8629217850 No Longer Active Brii Russ [employer] Active CETIRIZINE HCL 10 MG ORAL TABLET 1 po qd PRN Allergies CETIRIZINE HCL 64556548751 No Longer Active Brii Russ APRN Activ e PREDNISONE 20 MG ORAL TABLET 2 tabs daily for 3 days, 1 tab daily for 3 days, 1/2 tab daily for 2 days PREDNISONE 30303973186 No Longer Active Arie Casper MD Active LOMOTIL 2.5-0.025 MG ORAL TABLET 1 tab po four times a day as needed for diarrhea DIPHENOXYLATE-ATROPINE 37923872418 No Lo nger Active Arie Casper MD Active ZOLOFT 50 MG ORAL TABLET 1 tablet by mouth daily 12/08 SERTRALINE HCL 54109304685 No Longer Active Arie Casper MD Ac tive NAPROXEN 500 MG ORAL TABLET Take 1 tab BID NAPR OXEN 70861630608 No Longer Active Arie Casper MD Active CEFDINIR 300 MG ORAL CAPSULE 1 po BID x 10 days CEFDINIR 38115906552 No Longer Active Brii Russ APRN Active PREDNISONE 20 MG ORAL TABLET 1 tablet daily for airway inflammat ion PREDNISONE 88542935020 No Longer Active Brii Russ APRN A ctive CEFDINIR 300 MG ORAL CAPSULE 1 po BID x 10 days CEFDINIR 88816078181 No Longer Active Jono Gagnon DO Active FLONASE 50 MCG/ACT NASAL SUSPENSION 1 spray each nostr il twice daily for allergies and runny nose until gone FLUT ICASONE PROPIONATE 61662452826 No Longer Active Jono Gagnon DO Active ALPRAZOLAM 0.25 MG ORAL TABLET 1 tablet by mouth every 8 hours as needed for stress ALPRAZOLAM 66959096201 No Longer Active Jono Gagnon DO Active ZITHROMAX Z-EMIL 250 MG ORAL TABLET 2 today, then 1 daily for 4 d ays AZITHROMYCIN 86510562199 No Longer Active Arie Casper MD Active PREDNISONE 20 MG ORAL TABLET 2 tabs daily for 3 days, 1 tab daily for 3 days, 1/2 tab daily for 2 days PREDNISONE 02526287730 No Longer Active Brii Russ APRN Active PREDNISONE 20 MG ORAL TABLET 1 tablet twice daily for 2 days, then 1 tablet once daily for 2 days PREDNISONE 25716740302 No Longer Active Brii Russ APRN Active PROMETHAZINE HCL 12.5 MG ORAL TABLET 1 tablet by mouth every 6 hours as needed for nausea/vomiting PROMETHAZINE HCL 13073995542 No L onger Active Jono Gagnon DO Active CITRATE OF MAGNESIA ORAL SOLUTION 1 bottle today for constipatio n MAGNESIUM CITRATE 23768737615 No Longer Active Jono Gagnon DO Active ZOFRAN 4 MG ORAL TABLET 1 TAB PO Q 6 HRS PRN NAUSEA 07/10/15 ONDANSETRON HCL 17541967319 No Longer Active Brii Russ APRN Acti ve LOMOTIL 2.5-0.025 MG ORAL TABLET 1 to 2 four times a day as needed for diarrhea DIPHENOXYLATE-ATROPINE 05927634685 No Longer Active January Russ APRN Active AMOXICILLIN 500 MG ORAL TABLET 2 tabs twice a day for 10 days 20 07/09/11 AMOXICILLIN 20603609088 No Longer Active Brii Russ APRN Active CYCLOBENZAPRINE HCL 10 MG ORAL TABLET 1/2 - 1 tablet b y mouth three times daily as needed for muscle spasm/pain CYCLOBENZAPRINE HCL 37864175964 No Longer Active Arie Casper MD Active LOMOTIL 2.5-0.025 MG ORAL TABLET 1 to 2 four times a day as needed for diarrhea DIPHENOXYLATE-ATROPINE 33968967830 No Longer Active Fozia Casper MD Active MACROBID 100 MG ORAL CAPSULE 1 cap by mouth twice daily NITROFURANTOIN MONOHYD MACRO 66281804970 No Longer Active Arie Casper MD Active ZYRTEC ALLERGY 10 MG ORAL CAPSULE 1 po qd CE TIRIZINE HCL 64955297594 No Longer Active Arie Casper MD Active AZITHROMYCIN 250 MG ORAL TABLET 2 po qd x 1 day, then 1 po q d x 4 days AZITHROMYCIN 80585231671 No Longer Active Jessica salgado [employer] Active PREDNISONE 20 MG ORAL TABLET 2 tabs daily for 3 days, 1 tab daily for 3 days, 1/2 tab daily for 2 days PREDNISONE 66755000620 No Longer Active Jessica Heaton [employer] Active PROMETHAZINE HCL 25 MG ORAL TABLET 1 four times a day as nee ded for vomiting PROMETHAZINE HCL 18300265282 No Longer Active Myrna Roberto MD Active BACTRIM DS 800-160 MG ORAL TABLET 1 twice a day 05/30 SULFAMETHOXAZOLE-TRIMETHOPRIM 65677414688 No Longer Active Myrna Roberto MD Active VICKS DAYQUIL SEVERE COLD/FLU TABLET 1 tab every 6 hours prn 201 02/22/17 [id number] TABS 70604314701 No Longer Active Chris Roberto MD Active GUAIFENESIN-CODEINE 100-10 MG/5ML ORAL SYRUP 2 tsp every 6 hours prn GUAIFENESIN-CODEINE 05173877905 No Longer Active Myrna Roberto MD Active NAPROXEN 500 MG ORAL TABLET one tab PO BID NAPR OXEN 86538558915 No Longer Active Myrna Roberto MD Active AUGMENTIN 875-125 MG ORAL TABLET 1 tab by mouth twice daily with food AMOXICILLIN-POT CLAVULANATE 86127723391 No Longer Act zaid Liliana Estrada MD PhD Active AMOXICILLIN 500 MG ORAL CAPSULE 1 tab by mouth 3 times daily 201 02/21/05 AMOXICILLIN 45013285250 No Longer Active Liliana Estrada MD PhD Active TESSALON PERLES 100 MG ORAL CAPSULE 1 tablet by mouth 3 times da cory BENZONATATE 20355823659 No Longer Active Liliana Estrada MD PhD Active FLAGYL 500 MG ORAL TABLET 1 tablet by mouth two times daily 2014 METRONIDAZOLE 70598185223 No Longer Active Nilam Doran tive ZITHROMAX 250 MG ORAL TABLET 2 po today, then 1 po q days 2-5 20 06/08/16 AZITHROMYCIN 99746372584 No Longer Active Arie Casper MD Active VITAMINS 0.8 MG ORAL TABLET take 1 tab po qday [id number] 74755480525 No Longer Active Arie Casper MD Active IBUPROFEN 800 MG ORAL TABLET take one po Q 8 hours 201 02/01/16 IBUPROFEN 80235688965 No Longer Active Arie Casper MD Acti ve [facility] TUSSIN COUGH/COLD CF 5-10-100 MG/5ML ORAL LIQUID 2 teasp oons every 4 hours [id number] 12742101231 No Longer Active Blaine Casper MD Active COMTREX COLD/COUGH DAY/NITE MS 5-2-10-325 MG ORAL 2 caps deja ry 4 hours [id number] 10608023329 No Longer Active Da aleksandra Casper MD Active CHLORASEPTIC MAX SORE THROAT 15-10 MG MOUTH/THROAT LOZENGE 1 every 2 hours prn BENZOCAINE-MENTHOL 03881902864 No Longer Active Arie Casper MD Active PREDNISONE 20 MG ORAL TABLET 2 tabs daily for 3 days, 1 tab daily for 3 days, 1/2 tab daily for 2 days PREDNISONE 44059954521 No Longer Active Jose Zhong MD Active AZITHROMYCIN 250 MG ORAL TABLET 2 po qd x 1 day, then 1 po q d x 4 days AZITHROMYCIN 05143623904 No Longer Active Jose Mcwilliams MD Active ZOFRAN ODT 4 MG ORAL TABLET DISINTEGRATING 1 po q6hr PRN Nausea ONDANSETRON 26315999477 No Longer Active Rich Rosales MD Active ZOFRAN 4 MG ORAL TABLET 1 tablet every 4 hours ONDANSETRON HCL 82107195991 No Longer Active Rich Rosales MD Activ e MUCINEX 600 MG ORAL TABLET EXTENDED RELEASE 12 HOUR Ta ke 1-2 tablets every 12 hours GUAIFENESIN 51990121383 No Longer Active Rich Rosales MD Active BACTRIM 400-80 MG ORAL TABLET take one po BID SULFAMETHOXAZOLE-TRIMETHOPRIM 29689560536 No Longer Active Abelardo HERNANDEZ Active AZITHROMYCIN 500 MG ORAL TABLET 1 PO q day x 6 days 20 03/02/23 AZITHROMYCIN 26923769552 No Longer Active Tin HERNANDEZ Activ e ZITHROMAX 250 MG ORAL TABLET 2 po today, then 1 po q days 2-5 20 10/03/08 AZITHROMYCIN 92753139222 No Longer Active Arie Casper MD Active ZITHROMAX 250 MG ORAL TABLET 2 po today, then 1 po q days 2-5 20 09/23/25 AZITHROMYCIN 39861989155 No Longer Active Arie Casper MD Active AMOXICILLIN 500 MG ORAL CAPSULE 1 tab by mouth 3 times daily 201 11/24/09 AMOXICILLIN 52244135160 No Longer Active Arie Casper MD Active BACTRIM DS 800-160 MG ORAL TABLET 1 tab by mouth twice daily 201 11/03/14 TRIMETHOPRIM-SULFAMETHOXAZOLE 88248397690 No Longer Active Fozia Casper MD Active AMOXICILLIN 500 MG ORAL TABLET take 1 tab po TID 08/05 AMOXICILLIN 37435406581 No Longer Active Arie Casper MD Acti ve BACTRIM DS 800-160 MG ORAL TABLET 1 tab by mouth twice daily 201 11/03/14 BACTRIM DS 800-160 MG ORAL TABLET 721620 TRIMETHOPRIM-SULFAMETHOXAZOLE Inactive MUCINEX 600 MG ORAL TABLET EXTENDED RELEASE 12 HOUR Ta ke 1-2 tablets every 12 hours MUCINEX 600 MG ORAL TABLET EXTENDED RELEA SE 12 HOUR GUAIFENESIN Inactive ZOFRAN 4 MG ORAL TABLET 1 tablet every 4 hours ZOFRAN 4 MG ORAL TABLET 477409 ONDANSETRON HCL Inactive ZOFRAN ODT 4 MG ORAL TABLET DISINTEGRATING 1 po q6hr PRN Nausea ZOFRAN ODT 4 MG ORAL TABLET DISINTEGRATING 702123 ONDAN SETRON Inactive CHLORASEPTIC MAX SORE THROAT 15-10 MG MOUTH/THROAT LOZENGE 1 every 2 hours prn CHLORASEPTIC MAX SORE THROAT 15-10 MG MOUTH/THROAT LOZENGE BENZOCAINE-MENTHOL Inactive COMTREX COLD/COUGH DAY/NITE MS 5-2-10-325 MG ORAL 2 caps deja ry 4 hours COMTREX COLD/COUGH DAY/NITE MS 5-2-10-325 MG ORA L [id number] Inactive [facility] TUSSIN COUGH/COLD CF 5-10-100 MG/5ML ORAL LIQUID 2 teasp oons every 4 hours [facility] TUSSIN COUGH/COLD CF 5-10-100 MG/5ML ORAL LI QUID [id number] Inactive IBUPROFEN 800 MG ORAL TABLET take one po Q 8 hours 201 02/01/16 IBUPROFEN 800 MG ORAL TABLET IBUPROFEN Inactive VITAMINS 0.8 MG ORAL TABLET take 1 tab po qday VITAMINS 0.8 MG ORAL TABLET [id number] E-FA Inactive TESSALON PERLES 100 MG ORAL CAPSULE 1 tablet by mouth 3 times da cory TESSALON PERLES 100 MG ORAL CAPSULE 376810 BENZONATATE Inactive AMOXICILLIN 500 MG ORAL CAPSULE 1 tab by mouth 3 times daily 201 02/21/05 AMOXICILLIN 500 MG ORAL CAPSULE 921251 AMOXICILLIN Inactive GUAIFENESIN-CODEINE 100-10 MG/5ML ORAL SYRUP 2 tsp every 6 hours prn GUAIFENESIN-CODEINE 100-10 MG/5ML ORAL SYRUP 163839 GUAIFENESIN-CODEINE Inactive VICKS DAYQUIL SEVERE COLD/FLU TABLET 1 tab every 6 hours prn 201 02/22/17 VICKS DAYQUIL SEVERE COLD/FLU TABLET PHENYLEPHRI [id number]-APAP TABS Inactive BACTRIM DS 800-160 MG ORAL TABLET 1 twice a day 05/30 BACTRIM DS 800-160 MG ORAL TABLET 905855 SULFAMETHOXAZOLE-TRIMETHOPRIM Inactiv e PROMETHAZINE HCL 25 MG ORAL TABLET 1 four times a day as nee ded for vomiting PROMETHAZINE HCL 25 MG ORAL TABLET 204239 PROMETHAZINE HCL Inactive ZYRTEC ALLERGY 10 MG ORAL CAPSULE 1 po qd ZYRTEC ALLERGY 10 MG ORAL CAPSULE CETIRIZINE HCL Inactive MACROBID 100 MG ORAL CAPSULE 1 cap by mouth twice daily MACROBID 100 MG ORAL CAPSULE 7639488 NITROFURANTOIN MONOHYD MACRO In active LOMOTIL 2.5-0.025 MG ORAL TABLET 1 to 2 four times a day as needed for diarrhea LOMOTIL 2.5-0.025 MG ORAL TABLET 5129321 DIPHENOXYLATE-ATROPINE Inactive CYCLOBENZAPRINE HCL 10 MG ORAL TABLET 1/2 - 1 tablet b y mouth three times daily as needed for muscle spasm/pain CYCLOBEN ZAPRINE HCL 10 MG ORAL TABLET 585726 CYCLOBENZAPRINE HCL Inactive AMOXICILLIN 500 MG ORAL TABLET 2 tabs twice a day for 10 days 20 07/09/11 AMOXICILLIN 500 MG ORAL TABLET 925325 AMOXICILLIN I nactive LOMOTIL 2.5-0.025 MG ORAL TABLET 1 to 2 four times a day as needed for diarrhea LOMOTIL 2.5-0.025 MG ORAL TABLET 1875456 DIPHENOXYLATE-ATROPINE Inactive ZOFRAN 4 MG ORAL TABLET 1 TAB PO Q 6 HRS PRN NAUSEA 20 07/10/15 ZOFRAN 4 MG ORAL TABLET 812127 ONDANSETRON HCL Inactive CITRATE OF MAGNESIA ORAL SOLUTION 1 bottle today for constipatio n CITRATE OF MAGNESIA ORAL SOLUTION 8478633 MAGNESIUM CITR ATE Inactive PROMETHAZINE HCL 12.5 MG ORAL TABLET 1 tablet by mouth every 6 hours as needed for nausea/vomiting PROMETHAZINE HCL 12.5 MG ORA L TABLET 796621 PROMETHAZINE HCL Inactive PREDNISONE 20 MG ORAL TABLET 1 tablet twice daily for 2 days, then 1 tablet once daily for 2 days PREDNISONE 20 MG ORAL TABLET 457352 PREDNISONE Inactive ALPRAZOLAM 0.25 MG ORAL TABLET 1 tablet by mouth every 8 hours as needed for stress ALPRAZOLAM 0.25 MG ORAL TABLET 677336 ALPRA ZOLAM Inactive FLONASE 50 MCG/ACT NASAL SUSPENSION 1 spray each nostr il twice daily for allergies and runny nose until gone FLON ASE 50 MCG/ACT NASAL SUSPENSION 4503967 FLUTICASONE PROPIONATE Inactive PREDNISONE 20 MG ORAL TABLET 1 tablet daily for airway inflammat ion PREDNISONE 20 MG ORAL TABLET 543197 PREDNISONE [place] ctive NAPROXEN 500 MG ORAL TABLET Take 1 tab BID NAPROXEN 500 MG ORAL TABLET 206274 NAPROXEN Inactive ZOLOFT 50 MG ORAL TABLET 1 tablet by mouth daily 12/08 ZOLOFT 50 MG ORAL TABLET 628850 SERTRALINE HCL Inactive LOMOTIL 2.5-0.025 MG ORAL TABLET 1 tab po four times a day as needed for diarrhea LOMOTIL 2.5-0.025 MG ORAL TABLET 6734762 DIPHENOXYLATE-ATROPINE Inactive CETIRIZINE HCL 10 MG ORAL TABLET 1 po qd PRN Allergies CETIRIZINE HCL 10 MG ORAL TABLET 9334022 CETIRIZINE HCL Inactiv e TUSSIONEX PENNKINETIC ER 10-8 MG/5ML ORAL SUSPENSION E XTENDED RELEASE 5ml po q12hr PRN Cough TUSSIONEX PENNKINETI C ER 10-8 MG/5ML ORAL SUSPENSION EXTENDED RELEASE HYDROCOD POLST-CHLORPHEN POLST I nactive NEXPLANON IMPLANT right arm subcutaneously NEXPLANON IMPLANT ETONOGESTREL IMPL Inactive PROTONIX 40 MG ORAL TABLET DELAYED RELEASE 1 po q a.m. PROTONIX 40 MG ORAL TABLET DELAYED RELEASE 122498 PANTOPRAZOLE SODI UM Inactive CHERATUSSIN AC 100-10 MG/5ML ORAL SYRUP 1 tsp by mouth every 4 hours as needed for cough CHERATUSSIN AC 100-10 MG/5ML ORAL SYRUP 9 55566 GUAIFENESIN-CODEINE Inactive GUAIFENESIN DM 400-20 MG ORAL [...] TID 08/05 AMOXICILLIN 500 MG ORAL TABLET 789378 AMOXICILLIN Inactive AMOXICILLIN 500 MG ORAL CAPSULE 1 tab by mouth 3 times daily 201 11/24/09 AMOXICILLIN 500 MG ORAL CAPSULE 633036 AMOXICILLIN Inactive ZITHROMAX 250 MG ORAL TABLET 2 po today, then 1 po q days 2-5 20 09/23/25 ZITHROMAX 250 MG ORAL TABLET 111031 AZITHROMYCIN [place] ctive ZITHROMAX 250 MG ORAL TABLET 2 po today, then 1 po q days 2-5 20 10/03/08 ZITHROMAX 250 MG ORAL TABLET 958497 AZITHROMYCIN [place] ctive AZITHROMYCIN 500 MG ORAL TABLET 1 PO q day x 6 days 03/02/23 AZITHROMYCIN 500 MG ORAL TABLET 2120812 AZITHROMYCIN Inactive BACTRIM 400-80 MG ORAL TABLET take one po BID BACTRIM 400- 80 MG ORAL TABLET 938722 SULFAMETHOXAZOLE-TRIMETHOPRIM Inactive AZITHROMYCIN 250 MG ORAL TABLET 2 po qd x 1 day, then 1 po q d x 4 days AZITHROMYCIN 250 MG ORAL TABLET 797128 AZITHROMY ALLISON Inactive PREDNISONE 20 MG ORAL TABLET 2 tabs daily for 3 days, 1 tab daily for 3 days, 1/2 tab daily for 2 days PREDNISONE 20 MG ORAL T ABLET 729121 PREDNISONE Inactive ZITHROMAX 250 MG ORAL TABLET 2 po today, then 1 po q days 2-5 20 06/08/16 ZITHROMAX 250 MG ORAL TABLET 609568 AZITHROMYCIN [place] ctive FLAGYL 500 MG ORAL TABLET 1 tablet by mouth two times daily 2014 FLAGYL 500 MG ORAL TABLET 200253 METRONIDAZOLE Inacti ve AUGMENTIN 875-125 MG ORAL TABLET 1 tab by mouth twice daily with food AUGMENTIN 875-125 MG ORAL TABLET 482681 AMOXICIL ELSA-POT CLAVULANATE Inactive NAPROXEN 500 MG ORAL TABLET one tab PO BID NAPROXEN 500 MG ORAL TABLET 243310 NAPROXEN Inactive PREDNISONE 20 MG ORAL TABLET 2 tabs daily for 3 days, 1 tab daily for 3 days, 1/2 tab daily for 2 days PREDNISONE 20 MG ORAL T ABLET 327549 PREDNISONE Inactive AZITHROMYCIN 250 MG ORAL TABLET 2 po qd x 1 day, then 1 po q d x 4 days AZITHROMYCIN 250 MG ORAL TABLET 039139 AZITHROMY ALLISON Inactive PREDNISONE 20 MG ORAL TABLET 2 tabs daily for 3 days, 1 tab daily for 3 days, 1/2 tab daily for 2 days PREDNISONE 20 MG ORAL T ABLET 653208 PREDNISONE Inactive ZITHROMAX Z-EMIL 250 MG ORAL TABLET 2 today, then 1 daily for 4 d ays ZITHROMAX Z-EMIL 250 MG ORAL TABLET 762698 AZITHROMYCIN Inactive CEFDINIR 300 MG ORAL CAPSULE [...] days PREDNISONE 20 MG ORAL T ABLET 277489 PREDNISONE Inactive BACTRIM DS 800-160 MG ORAL TABLET 1 tab by mouth twice daily 201 05/02/30 BACTRIM DS 800-160 MG ORAL TABLET 333321 TRIMETHOPRIM-SULFAMETHOXAZOLE Inactive ZITHROMAX Z-EMIL 250 MG ORAL TABLET 2 today, then 1 daily for 4 d ays ZITHROMAX Z-EMIL 250 MG ORAL TABLET 059065 AZITHROMYCIN Inactive TAMIFLU 75 MG ORAL CAPSULE 1 po BID x 5 days 0 TAMIFLU 75 MG ORAL CAPSULE 217427 OSELTAMIVIR PHOSPHATE Inactive CEFDINIR 300 MG ORAL CAPSULE 1 po BID x 10 days 2018/01/03 CEFDINIR 300 MG ORAL CAPSULE 802467 CEFDINIR Inactive ZITHROMAX Z-EMIL 250 MG TABS Take two tablets today and then 1 tablet daily for 4 days ZITHROMAX Z-EMIL 250 MG TABS 670922 AZITHROM YCIN Inactive Advance Directives Directive Description [...] Negative Encounters Code Encounter Date Provider Facility CPT-67026 Level 3 Est. Patient 11:49:34 PRINCIPAL CONSULTING ENGINEER Jessica boyd [facility] [place] CPT-79830 Level 3 Est. Patient 14:55:50 PRINCIPAL CONSULTING ENGINEER Jose Zhong MD [facility] CPT-48577 Level 3 Est. Patient 10:21:41 PRINCIPAL CONSULTING ENGINEER Arie mcqueen MD [facility] CPT-03065 Level 3 Est. Patient 11:35:15 PRINCIPAL CONSULTING ENGINEER Arie mcqueen MD [facility] CPT-70416 Level 3 Est. Patient 15:40:28 CDT Brii escalante [facility] [place] CPT-58524 Level 3 Est. Patient 16:40:36 CDT Arie mcqueen MD [facility] CPT-94034 Level 4 Est. Patient 15:29:22 PRINCIPAL CONSULTING ENGINEER Arie mcqueen MD [facility] CPT-72772 Level 3 Est. Patient 15:18:16 PRINCIPAL CONSULTING ENGINEER Jono W L [facility] CPT-19364 Level 4 Est. Patient 12:08:40 PRINCIPAL CONSULTING ENGINEER Brii Are ll [employer] [facility] CPT-83461 Level 3 Est. Patient 09:24:42 CDT Brii Are ll [employer] [facility] CPT-83716 Level 3 Est. Patient 09:12:56 CDT Arie mcqueen MD [facility] CPT-16891 Level 3 Est. Patient 16:40:54 CDT Jose Zhong MD [facility] CPT-98723 Level 2 Est. Patient 13:01:13 CDT Brii Are ll [facility] [place] CPT-29706 Level 3 Est. Patient 11:55:30 PRINCIPAL CONSULTING ENGINEER Jono Cheema [facility]-69703 Level 3 Est. Patient 09:52:36 PRINCIPAL CONSULTING ENGINEER Brii Are ll [facility] [place] CPT-98700 Level 3 Est. Patient 16:25:33 PRINCIPAL CONSULTING ENGINEER Rich Rosales MD [facility] CPT-30738 Level 3 Est. Patient 20:33:55 CDT Arie mcqueen MD [facility] CPT-99267 Level 3 Est. Patient 14:18:20 CDT Rich Rosales MD [facility] CPT-26252 Level 4 Est. Patient 09:34:31 CDT Arie mcqueen MD [facility] CPT-42730 Level 3 Est. Patient 09:08:55 PRINCIPAL CONSULTING ENGINEER Liliana vincent MD PhD [facility] CPT-42118 Level 3 Est. Patient 16:44:07 PRINCIPAL CONSULTING ENGINEER Arie mcqueen MD [facility]-89401 Level 3 Est. Patient 10:44:27 CDT Arie mcqueen MD [facility] CPT-62658 Level 3 Est. Patient 08:55:41 CDT Jose Zhong MD [facility] CPT-62124 Level 3 Est. Patient 18:37:31 CDT Liliana vincent MD PhD [facility] CPT-92115 Level 3 Est. Patient 14:28:23 CDT Abelardo HERNANDEZ [facility] CPT-62154 Level 3 Est. Patient 15:18:13 PRINCIPAL CONSULTING ENGINEER Arie mcqueen MD [facility] CPT-87103 Level 3 Est. Patient 10:11:29 PRINCIPAL CONSULTING ENGINEER Arie mcqueen MD [facility] CPT-29812 Level 3 Est. Patient 10:55:57 PRINCIPAL CONSULTING ENGINEER Jono black DO [facility] CPT-64310 Level 3 Est. Patient 17:29:05 CDT Arie mcqueen MD [facility] Procedures Code Procedure Name Date Entry Date Standard Desc ription CPT-68138 Nexplanon Removal 15:40:28 CDT CPT-47490 Sono transvag pelvis non OB uterus ovari es cervix - XRAY USE ONLY 08:58:14 PRINCIPAL CONSULTING ENGINEER CPT-64497 UA w micro - LAB USE ONLY 16:04:56 PRINCIPAL CONSULTING ENGINEER 2015 CPT-02575 Wet Prep/GEN - LAB USE ONLY 16:04:56 PRINCIPAL CONSULTING ENGINEER 20 08/10/29 CPT-02258 First Vx - Ix admin via ID I M or jet injects without counseling by physician 16:57:10 CDT CPT-23839 Fluzone Preservative Free Intramuscular Suspension 16:57:10 CDT CPT-J0696 Rocephin 1000 mg (Ceftriaxone) 11:49:23 CDT CPT-J1040 Depo Medrol 80 mg (Methyl Prednisolone A cetate) 11:49:23 CDT CPT-J1100 Decadron 8mg (Dexamethasone) 11:49:23 CDT 2 CPT-96114 Abx/Therapy Injection 11:49:23 CDT CPT-04647 Abx/Therapy Injection 11:49:23 CDT CPT-73263 Abd compl w upright 09:07:26 PRINCIPAL CONSULTING ENGINEER CPT-24817 Ear Wash 16:12:47 PRINCIPAL CONSULTING ENGINEER CPT-OV Office Visit 11:12:01 CDT CPT-OV Office Visit 15:30:23 CDT CPT-81807 Sono pelvis non OB uterus ovaries cervix 15:50:44 CDT CPT-58011 Hand comp min 3V 16:42:32 CDT CPT-26516 Abd compl w upright 12:17:01 CDT CPT-12545 Nexplanon Placement 15:07:39 PRINCIPAL CONSULTING ENGINEER CPT-36830 Removal of IUD 15:07:39 PRINCIPAL CONSULTING ENGINEER CPT-73357 TB Tubersol 12:09:32 CDT CPT-14332 TB Tubersol 13:55:43 CDT
--- OUTSIDE RECORDS SUMMARY | 2020-03-03 08:27 | XMS REPORT | Clinical Summary ---
Author Author Admin, Diamante Marcelo Organization [employer] Address Unknown Phone Unavailable Allergies, Adverse Reactions, [...] site Abdominal pain 789.00 Active Brii Larson [employer] Abdominal pain, unspecified site Diarrhea 787.91 Resolved [...] cute pharyngitis Nausea 787.02 Active Brii Larson [employer] Nausea alone URI 465.9 Active Jono Gagnon [...] Anxiety with depression 300.4 Active Glenn Larson [employer] Dysthymic disorder URI 465.9 Active Jono Gagnon [...] MG TAB Take 1 tab BID NAPROXEN 922674719 15 Active Brii Larson APRN Active NEXPLANON IMPL Left arm subcutaneously ETONOGES TREL IMPL 72711946098 Active Brii Larson APRN Active CEFDINIR 300 MG CAPS 1 po BID x 10 days CEFDINI R 68404234356 Active Brii Larson APRN Active PREDNISONE 20 MG TAB 1 tablet daily for airway inflammation 2015 PREDNISONE 24470303887 No Longer Active Brii Larson APRN Active CEFDINIR 300 MG CAPS 1 po BID x 10 days CEFDINI R 48990244733 No Longer Active Jono Gagnon DO Active FLONASE 50 MCG/ACT SUSP 1 spray each nostril twice d aily for allergies and runny nose until gone FLUTICASONE PROPIONATE No Longe r Active Jono Gagnon DO Active ALPRAZOLAM 0.25 MG TAB 1 tablet by mouth every 8 hours as ne eded for stress ALPRAZOLAM 63095630238 No Longer Active Jono Gagnon DO Active ZOLOFT 50 MG TAB 1 tablet by mouth daily SERTRA LINE HCL 04965110526 Active Arie Casper MD Active LOMOTIL 2.5-0.025 MG TAB 1 tab po four times a day as needed for diarrhea DIPHENOXYLATE-ATROPINE 61178234367 Active Brii Larson APRN Active ZITHROMAX Z-EMIL 250 MG TABS 2 today, then 1 daily for 4 days 201 03/31/18 AZITHROMYCIN 18495607642 No Longer Active Arie Casper MD Active PROTONIX 40 MG ORAL TBEC 1 po q a.m. PANTOPRAZO LE SODIUM 62668140148 Active Carline Ochoa RPT,RMA Active PREDNISONE 20 MG TAB 2 tabs daily for 3 days, 1 t ab daily for 3 days, 1/2 tab daily for 2 days PREDNISONE 23746077251 No Longer Active Brii Larson APRN Active PREDNISONE 20 MG TAB 1 tablet twice daily for 2 d ays, then 1 tablet once daily for 2 days PREDNISONE 48176752844 No Longer Active Brii Larson APRN Active PROMETHAZINE HCL 12.5 MG TABS 1 tablet by mouth every 6 hours as needed for nausea/vomiting PROMETHAZINE HCL 62976996573 No Longe r Active Jono Gagnon DO Active CITRATE OF MAGNESIA ORAL SOLN 1 bottle today for constipation 20 07/10/15 MAGNESIUM CITRATE 64739756057 No Longer Active Jono Gagnon DO Active ZOFRAN 4 MG ORAL TABS 1 TAB PO Q 6 HRS PRN NAUSEA 2014 ONDANSETRON HCL 36879207538 No Longer Active Brii Larson APRN A ctive LOMOTIL 2.5-0.025 MG TAB 1 to 2 four times a day as needed f or diarrhea DIPHENOXYLATE-ATROPINE 36205098477 No Longer Active January Larson APRN Active AMOXICILLIN 500 MG TABS 2 tabs twice a day for 10 days AMOXICILLIN 85663350075 No Longer Active Brii Larson APRN Acti ve CYCLOBENZAPRINE HCL 10 MG TABS 1/2 - 1 tablet by mouth three times daily as needed for muscle spasm/pain CYCLOBENZAPRINE HCL 57423063222 No Longer Active Arie Casper MD Active LOMOTIL 2.5-0.025 MG TABS 1 to 2 four times a day as needed for diarrhea DIPHENOXYLATE-ATROPINE 11203179291 No Longer Active D freddy Casper MD Active MACROBID 100 MG CAP 1 cap by mouth twice daily NITROFURANTOIN MONOHYD MACRO 92016276011 No Longer Active Arie Casper MD Active ZYRTEC ALLERGY 10 MG CAPS 1 po qd CETIRIZINE HCL 12976795184 No Longer Active Arie Casper MD Active AZITHROMYCIN 250 MG TABS 2 po qd x 1 day, then 1 po qd x 4 days AZITHROMYCIN 10598195609 No Longer Active Jillisael Frazelanette CABRERA Active PREDNISONE 20 MG TAB 2 tabs daily for 3 days, 1 t ab daily for 3 days, 1/2 tab daily for 2 days PREDNISONE 94623386113 No Longer Active Jillina Frazell RICK Active PROMETHAZINE HCL 25 MG TABS 1 four times a day as needed for vomiting PROMETHAZINE HCL 24944484539 No Longer Active Myrna Roberto MD Active BACTRIM DS 800-160 MG TABS 1 twice a day SULFAMETHOXAZOLE-TRIMETHOPRIM 34067006911 No Longer Active Myrna Roberto MD Active VICKS DAYQUIL SEVERE COLD/FLU TABS 1 tab every 6 hours prn 12/10 [id number]-[id number]-APAP TABS 84239630265 No Longer Active Myrna leigh MD Active GUAIFENESIN-CODEINE 100-10 MG/5ML ORAL SYRP 2 tsp every 6 hours prn GUAIFENESIN-CODEINE 97570122133 No Longer Active Myrna Roberto MD Active NAPROXEN 500 MG TAB one tab PO BID NAPROXEN 332 56689050 No Longer Active Myrna Roberto MD Active AUGMENTIN 875-125 MG TAB 1 tab by mouth twice daily with food 20 08/12/16 AMOXICILLIN-POT CLAVULANATE 45743869073 No Longer Active Liliana Estrada MD PhD Active AMOXICILLIN 500 MG CAP 1 tab by mouth 3 times daily 08/12/16 AMOXICILLIN 69580169944 No Longer Active Liliana Estrada MD PhD Acti ve TESSALON PERLES 100 MG CAP 1 tablet by mouth 3 times daily 11/01 BENZONATATE 83766422707 No Longer Active Liliana Estrada MD PhD Active FLAGYL 500 MG TAB 1 tablet by mouth two times daily 07/11/29 METRONIDAZOLE 56446658522 No Longer Active Nilam Weber Active ZITHROMAX 250 MG TAB 2 po today, then 1 po q days 2-5 AZITHROMYCIN 81399399334 No Longer Active Arie Capser MD Acti ve VITAMINS 0.8 MG TABS take 1 tab po qday 08/08 [id number]-PQ-FA 79715811392 No Longer Active Arie Casper MD Active IBUPROFEN 800 MG TABS take one po Q 8 hours IBU PROFEN 90180812762 No Longer Active Arie Casper MD Active [facility] TUSSIN COUGH/COLD CF 5-10-100 MG/5ML LIQD 2 teaspoons ev eliud 4 hours [id number] 96214160691 No Longer Active Blaine Casper MD Active COMTREX COLD/COUGH DAY/NITE MS 5-2-10-325 MG MISC 2 caps deja ry 4 hours [id number]-[id number]-SQ-APAP 36392048661 No Longer Active Landon Casper MD Active CHLORASEPTIC MAX SORE THROAT 15-10 MG LOZG 1 every 2 hours prn 2 BENZOCAINE-MENTHOL 98137869631 No Longer Active Arie Marcelo Active PREDNISONE 20 MG TAB 2 tabs daily for 3 days, 1 t ab daily for 3 days, 1/2 tab daily for 2 days PREDNISONE 94886879171 No Longer Active Jose Zhong MD Active AZITHROMYCIN 250 MG TABS 2 po qd x 1 day, then 1 po qd x 4 days AZITHROMYCIN 39954276525 No Longer Active Jose Zhong MD Active ZOFRAN ODT 4 MG TBDP 1 po q6hr PRN Nausea ONDAN SETRON 19274602431 No Longer Active Rich Rosales MD Active ZOFRAN 4 MG TABS 1 tablet every 4 hours ONDANSE JERRELL HCL 18822056938 No Longer Active Rich Rosales MD Active MUCINEX 600 MG [id number]-OWC Take 1-2 tablets every 12 hours GUAIFENESIN 36394891253 No Longer Active Rich Rosales MD Activ e BACTRIM 400-80 MG TABS take one po BID SULFAMETHOXAZOLE-TRIMETHOPRIM 25103714161 No Longer Active Abelardo HERNANDEZ Active AZITHROMYCIN 500 MG TABS 1 PO q day x 6 days AZ ITHROMYCIN 00306363012 No Longer Active Tin HERNANDEZ Active ZITHROMAX 250 MG TAB 2 po today, then 1 po q days 2-5 AZITHROMYCIN 90160979184 No Longer Active Arie Casper MD Acti ve ZITHROMAX 250 MG TAB 2 po today, then 1 po q days 2-5 AZITHROMYCIN 28985273989 No Longer Active Arie Casper MD Acti ve AMOXICILLIN 500 MG CAP 1 tab by mouth 3 times daily 20 09/23/20 AMOXICILLIN 92462189967 No Longer Active Arie Casper MD Acti ve BACTRIM DS 800-160 MG TAB 1 tab by mouth twice daily 2 TRIMETHOPRIM-SULFAMETHOXAZOLE 20070302392 No Longer Active Arie Casper MD Active AMOXICILLIN 500 MG TABS take 1 tab po TID AMOXI CILLIN 74307868966 No Longer Active Arie Casper MD Active BACTRIM DS 800-160 MG TAB 1 tab by mouth twice daily 2 BACTRIM DS 800-160 MG TAB 018032 TRIMETHOPRIM-SULFAMETHOXAZOLE Inac tive MUCINEX 600 MG [id number]-[id number] Take 1-2 tablets every 12 hours MUCINEX 600 MG [id number] GUAIFENESIN Inactive ZOFRAN 4 MG TABS 1 tablet every 4 hours ZOFRAN 4 MG TABS 479922 ONDANSETRON HCL Inactive ZOFRAN ODT 4 MG TBDP 1 po q6hr PRN Nausea ZOFRAN ODT 4 MG TBDP 769075 ONDANSETRON Inactive CHLORASEPTIC MAX SORE THROAT 15-10 MG LOZG 1 every 2 hours prn 2 CHLORASEPTIC MAX SORE THROAT 15-10 MG LOZG BENZO ARINA-MENTHOL Inactive COMTREX COLD/COUGH DAY/NITE MS 5-2-10-325 MG MISC 2 caps deja ry 4 hours COMTREX COLD/COUGH DAY/NITE MS 5-2-10-325 MG MIS C [id number]-ZNM-IX-APAP Inactive [facility] TUSSIN COUGH/COLD CF 5-10-100 MG/5ML LIQD 2 teaspoons ev eliud 4 hours [facility] TUSSIN COUGH/COLD CF 5-10-100 MG/5ML LIQD [id number]-QL-FS Inactive IBUPROFEN 800 MG TABS take one po Q 8 hours IBUPROFEN 800 MG TABS IBUPROFEN Inactive VITAMINS 0.8 MG TABS take 1 tab po qday 08/08 VITAMINS 0.8 MG TABS [id number]-FA Inactive TESSALON PERLES 100 MG CAP 1 tablet by mouth 3 times daily 11/01 TESSALON PERLES 100 MG CAP 026572 BENZONATATE Inact zaid AMOXICILLIN 500 MG CAP 1 tab by mouth 3 times daily 08/12/16 AMOXICILLIN 500 MG CAP 418540 AMOXICILLIN Inactive GUAIFENESIN-CODEINE 100-10 MG/5ML ORAL SYRP 2 tsp every 6 hours prn GUAIFENESIN-CODEINE 100-10 MG/5ML ORAL SYRP 134199 GUAIFENESIN-CODEINE Inactive VICKS DAYQUIL SEVERE COLD/FLU TABS 1 tab every 6 hours prn 12/10 VICKS DAYQUIL SEVERE COLD/FLU TABS PHENYLEPHRINE -DM-GG-APAP TABS Inactive BACTRIM DS 800-160 MG TABS 1 twice a day BACTRIM DS 800- 160 MG TABS 319458 SULFAMETHOXAZOLE-TRIMETHOPRIM Inactive PROMETHAZINE HCL 25 MG TABS 1 four times a day as needed for vomiting PROMETHAZINE HCL 25 MG TABS 101202 PROMETHAZINE HCL Inactive ZYRTEC ALLERGY 10 MG CAPS 1 po qd ZY RTEC ALLERGY 10 MG CAPS CETIRIZINE HCL Inactive MACROBID 100 MG CAP 1 cap by mouth twice daily MACROBID 100 MG CAP 9808458 NITROFURANTOIN MONOHYD MACRO Inactive LOMOTIL 2.5-0.025 MG TABS 1 to 2 four times a day as needed for diarrhea LOMOTIL 2.5-0.025 MG TABS 3019139 DIPHENOXYLATE-A TROPINE Inactive CYCLOBENZAPRINE HCL 10 MG TABS 1/2 - 1 tablet by mouth three times daily as needed for muscle spasm/pain CYCLOBENZAP RINE HCL 10 MG TABS 748509 CYCLOBENZAPRINE HCL Inactive AMOXICILLIN 500 MG TABS 2 tabs twice a day for 10 days AMOXICILLIN 500 MG TABS 026987 AMOXICILLIN Inactive LOMOTIL 2.5-0.025 MG TAB 1 to 2 four times a day as needed f or diarrhea LOMOTIL 2.5-0.025 MG TAB 5931116 DIPHENOXYLATE-AT ROPINE Inactive ZOFRAN 4 MG ORAL TABS 1 TAB PO Q 6 HRS PRN NAUSEA 2014 ZOFRAN 4 MG ORAL TABS 767371 ONDANSETRON HCL Inactive CITRATE OF MAGNESIA ORAL SOLN 1 bottle today for constipation 20 07/10/15 CITRATE OF MAGNESIA ORAL SOLN 5018818 MAGNESIUM CITRATE Inactive PROMETHAZINE HCL 12.5 MG TABS 1 tablet by mouth every 6 hours as needed for nausea/vomiting PROMETHAZINE HCL 12.5 MG TABS 654757 PROMETHAZINE HCL Inactive PREDNISONE 20 MG TAB 1 tablet twice daily for 2 d ays, then 1 tablet once daily for 2 days PREDNISONE 20 MG TAB 465725 PREDNISONE Inac tive ALPRAZOLAM 0.25 MG TAB 1 tablet by mouth every 8 hours as ne eded for stress ALPRAZOLAM 0.25 MG TAB 020059 ALPRAZOLAM Inact zaid FLONASE 50 MCG/ACT SUSP 1 spray each nostril twice d aily for allergies and runny nose until gone FLONASE 50 MCG/ACT SUSP F LUTICASONE PROPIONATE Inactive PREDNISONE 20 MG TAB 1 tablet daily for airway inflammation 2015 PREDNISONE 20 MG TAB 985558 PREDNISONE Inactive AMOXICILLIN 500 MG TABS take 1 tab po TID AMOXICILLIN 500 MG TABS 030496 AMOXICILLIN Inactive AMOXICILLIN 500 MG CAP 1 tab by mouth 3 times daily 09/23/20 AMOXICILLIN 500 MG CAP 809264 AMOXICILLIN Inactive ZITHROMAX 250 MG TAB 2 po today, then 1 po q days 2-5 ZITHROMAX 250 MG TAB 7633666 AZITHROMYCIN Inactive ZITHROMAX 250 MG TAB 2 po today, then 1 po q days 2-5 ZITHROMAX 250 MG TAB 9315582 AZITHROMYCIN Inactive AZITHROMYCIN 500 MG TABS 1 PO q day x 6 days 3 AZITHROMYCIN 500 MG TABS 8580645 AZITHROMYCIN Inactive BACTRIM 400-80 MG TABS take one po BID BA CTRIM 400-80 MG TABS 491318 SULFAMETHOXAZOLE-TRIMETHOPRIM Inactive AZITHROMYCIN 250 MG TABS 2 po qd x 1 day, then 1 po qd x 4 days AZITHROMYCIN 250 MG TABS 9572486 AZITHROMYCIN Inactiv e PREDNISONE 20 MG TAB 2 tabs daily for 3 days, 1 t ab daily for 3 days, 1/2 tab daily for 2 days PREDNISONE 20 MG TAB 842238 PREDNISON E Inactive ZITHROMAX 250 MG TAB 2 po today, then 1 po q days 2-5 ZITHROMAX 250 MG TAB 5323922 AZITHROMYCIN Inactive FLAGYL 500 MG TAB 1 tablet by mouth two times daily 07/11/29 FLAGYL 500 MG TAB 476961 METRONIDAZOLE Inactive AUGMENTIN 875-125 MG TAB 1 tab by mouth twice daily with food 20 08/12/16 AUGMENTIN 875-125 MG TAB 021762 AMOXICILLIN-POT CLAVULA ANGELO Inactive NAPROXEN 500 MG TAB one tab PO BID NAPROXEN 500 MG TAB 529999 NAPROXEN Inactive PREDNISONE 20 MG TAB 2 tabs daily for 3 days, 1 t ab daily for 3 days, 1/2 tab daily for 2 days PREDNISONE 20 MG TAB 466492 PREDNISON E Inactive AZITHROMYCIN 250 MG TABS 2 po qd x 1 day, then 1 po qd x 4 days AZITHROMYCIN 250 MG TABS 3140493 AZITHROMYCIN Inactiv e PREDNISONE 20 MG TAB 2 tabs daily for 3 days, 1 t ab daily for 3 days, 1/2 tab daily for 2 days PREDNISONE 20 MG TAB 643640 PREDNISON E Inactive ZITHROMAX Z-EMIL 250 MG TABS 2 today, then 1 daily for 4 days 201 03/31/18 ZITHROMAX Z-EMIL 250 MG TABS 3661675 AZITHROMYCIN Inac tive CEFDINIR 300 MG CAPS 1 po BID x 10 days C EFDINIR 300 MG CAPS 590434 CEFDINIR Inactive Advance Directives Directive Description Start [...] Panel - Chemistry sodium, serum 136 mmol/L 391-571 7990/04/26 carbon dioxide, venous blood 29.9 mmol/L 21.0-32 [...] Negative Encounters Code Encounter Date Provider Facility CPT-67964 Level 3 Est. Patient 09:24:42 CDT Steve CABRERA [facility] CPT-27407 Level 3 Est. Patient 09:12:56 CDT Arie mcqueen MD [facility] CPT-04029 Level 3 Est. Patient 16:40:54 CDT Jose Zhong MD [facility] CPT-34708 Level 2 Est. Patient 13:01:13 CDT Steve CABRERA [facility]-29271 Level 3 Est. Patient 11:55:30 NATURAL HISTORY COLLECTIONS CURATOR Jono black DO [facility] CPT-31012 Level 3 Est. Patient 09:52:36 NATURAL HISTORY COLLECTIONS CURATOR Steve CABRERA [facility]-05334 Level 3 Est. Patient 16:25:33 NATURAL HISTORY COLLECTIONS CURATOR Rich Rosales MD [facility]-78873 Level 3 Est. Patient 20:33:55 CDT Arie mcqueen MD [facility]-97203 Level 3 Est. Patient 14:18:20 CDT Rich Rosales MD [facility] CPT-80464 Level 4 Est. Patient 09:34:31 CDT Arie mcqueen MD [facility]-77900 Level 3 Est. Patient 09:08:55 NATURAL HISTORY COLLECTIONS CURATOR Liliana vincent MD PhD [facility]-46021 Level 3 Est. Patient 16:44:07 NATURAL HISTORY COLLECTIONS CURATOR Arie mcqueen MD [facility]-19001 Level 3 Est. Patient 10:44:27 CDT Arie mcqueen MD [facility]-81275 Level 3 Est. Patient 08:55:41 CDT Jose Zhong MD [facility]-49716 Level 3 Est. Patient 18:37:31 CDT Liliana vincent MD PhD [facility]-16831 Level 3 Est. Patient 14:28:23 CDT Abelardo HERNANDEZ [facility]-53490 Level 3 Est. Patient 15:18:13 NATURAL HISTORY COLLECTIONS CURATOR Arie mcqueen MD [facility]-43720 Level 3 Est. Patient 10:11:29 NATURAL HISTORY COLLECTIONS CURATOR Arie mcqueen MD [facility] CPT-82051 Level 3 Est. Patient 10:55:57 NATURAL HISTORY COLLECTIONS CURATOR Jono Cheema ee DO [facility] CPT-11310 Level 3 Est. Patient 17:29:05 CDT Arie mcqueen MD [facility] Procedures Code Procedure Name Date Entry Date Standard Desc ription CPT-12585 UA w micro - LAB USE ONLY 16:04:56 NATURAL HISTORY COLLECTIONS CURATOR 2015 CPT-56575 Wet Prep/GEN - LAB USE ONLY 16:04:56 NATURAL HISTORY COLLECTIONS CURATOR 20 08/10/29 CPT-98702 First Vx - Ix admin via ID I M or jet injects without counseling by physician 16:57:10 CDT CPT-38329 Fluzone Preservative Free Intramuscular Suspension 16:57:10 CDT CPT-J0696 Rocephin 1000 mg (Ceftriaxone) 11:49:23 CDT CPT-J1040 Depo Medrol 80 mg (Methyl Prednisolone A cetate) 11:49:23 CDT CPT-J1100 Decadron 8mg (Dexamethasone) 11:49:23 CDT 2 CPT-24182 Abx/Therapy Injection 11:49:23 CDT CPT-28841 Abx/Therapy Injection 11:49:23 CDT CPT-53581 Abd compl w upright 09:07:26 NATURAL HISTORY COLLECTIONS CURATOR CPT-30965 Ear Wash 16:12:47 NATURAL HISTORY COLLECTIONS CURATOR CPT-OV Office Visit 11:12:01 CDT CPT-OV Office Visit 15:30:23 CDT CPT-84710 Sono pelvis non OB uterus ovaries cervix 15:50:44 CDT CPT-53777 Hand comp min 3V 16:42:32 CDT CPT-78342 Abd compl w upright 12:17:01 CDT CPT-02568 Nexplanon Placement 15:07:39 NATURAL HISTORY COLLECTIONS CURATOR CPT-71907 Removal of IUD 15:07:39 NATURAL HISTORY COLLECTIONS CURATOR CPT-93790 TB Tubersol 12:09:32 CDT CPT-75037 TB Tubersol 13:55:43 CDT
--- OUTSIDE RECORDS SUMMARY | 2020-03-03 08:28 | XMS REPORT | Clinical Summary ---
Author Author Admin, Diamante Marcelo Organization [employer] Address Unknown Phone Unavailable Allergies, Adverse Reactions, [...] implantable subdermal contraceptiv e Active Brii Russ MOBILE NURSE Vaginal bleeding 623.8 Active Arie Casper MD Other specified noninflammatory disorders of vagina Influenza like illness 487.1 Active Jose Mcwilliams MD Influenza with other respiratory manifestations Sinusitis 473.9 Active Jessica Heaton MOBILE NURSE Unspecified sinusitis (chronic) BREAST CANCER ICD-V16.3 Inactive [...] q12hr PRN Cough HYDROCOD POLST-CHLORPHEN POLST 5 [id number] No Longer Active Myrna Roberto MD Active ZITHROMAX Z-EMIL 250 MG TABS Take two tablets today and then 1 tablet daily for 4 days AZITHROMYCIN 09668630390 No Longer Active Flaco Rosales MD Active GUAIFENESIN DM 400-20 MG ORAL TABLET 1 pill by mouth t wice daily, if needed for cough DEXTROMETHORPHAN-GUAIFENESIN 34702163224 No Longer Active Rich Rosales MD Active CEFDINIR 300 MG ORAL CAPSULE 1 po BID x 10 days CEFDINIR 94386233993 No Longer Active Jessica Heaton APRN Active CHERATUSSIN AC 100-10 MG/5ML ORAL SYRUP 1 tsp by mouth every 4 hours as needed for cough GUAIFENESIN-CODEINE 56974620290 No Longe r Active Jessica Heaton APRN Active TAMIFLU 75 MG ORAL CAPSULE 1 po BID x 5 days 0 OSELTAMIVIR PHOSPHATE 55271099639 No Longer Active Jose Zhong MD Activ e ZITHROMAX Z-EMIL 250 MG ORAL TABLET 2 today, then 1 daily for 4 d ays AZITHROMYCIN 36768995495 No Longer Active Arie Casper MD Active PROTONIX 40 MG ORAL TABLET DELAYED RELEASE 1 po q a.m. PANTOPRAZOLE SODIUM 45330301570 No Longer Active Arie Casper MD Active BACTRIM DS 800-160 MG ORAL TABLET 1 tab by mouth twice daily 201 05/02/30 TRIMETHOPRIM-SULFAMETHOXAZOLE 17552220148 No Longer Active R [facility] Ty Active NEXPLANON IMPLANT right arm subcutaneously ETONOGESTREL IMPL 75522873421 No Longer Active Brii Russ APRN Active TUSSIONEX PENNKINETIC ER 10-8 MG/5ML ORAL SUSPENSION E XTENDED RELEASE 5ml po q12hr PRN Cough HYDROCOD POLST-CHLORPHEN POLST 5 2923981544 No Longer Active Brii Russ MOBILE NURSE Active CETIRIZINE HCL 10 MG ORAL TABLET 1 po qd PRN Allergies CETIRIZINE HCL 41719288105 No Longer Active Brii Russ APRN Activ e PREDNISONE 20 MG ORAL TABLET 2 tabs daily for 3 days, 1 tab daily for 3 days, 1/2 tab daily for 2 days PREDNISONE 07914319656 No Longer Active Arie Casper MD Active LOMOTIL 2.5-0.025 MG ORAL TABLET 1 tab po four times a day as needed for diarrhea DIPHENOXYLATE-ATROPINE 53921374650 No Lo nger Active Arie Casper MD Active ZOLOFT 50 MG ORAL TABLET 1 tablet by mouth daily 12/08 SERTRALINE HCL 64350944865 No Longer Active Arie Casper MD Ac tive NAPROXEN 500 MG ORAL TABLET Take 1 tab BID NAPR OXEN 11347884618 No Longer Active Arie Casper MD Active CEFDINIR 300 MG ORAL CAPSULE 1 po BID x 10 days CEFDINIR 80185489154 No Longer Active Brii Russ APRN Active PREDNISONE 20 MG ORAL TABLET 1 tablet daily for airway inflammat ion PREDNISONE 43438549037 No Longer Active Brii Russ APRN A ctive CEFDINIR 300 MG ORAL CAPSULE 1 po BID x 10 days CEFDINIR 72221522045 No Longer Active Jono Gagnon DO Active FLONASE 50 MCG/ACT NASAL SUSPENSION 1 spray each nostr il twice daily for allergies and runny nose until gone FLUT ICASONE PROPIONATE 99719965575 No Longer Active Jono Gagnon DO Active ALPRAZOLAM 0.25 MG ORAL TABLET 1 tablet by mouth every 8 hours as needed for stress ALPRAZOLAM 87310232847 No Longer Active Jono Gagnon DO Active ZITHROMAX Z-EMIL 250 MG ORAL TABLET 2 today, then 1 daily for 4 d ays AZITHROMYCIN 12522017867 No Longer Active Arie Casper MD Active PREDNISONE 20 MG ORAL TABLET 2 tabs daily for 3 days, 1 tab daily for 3 days, 1/2 tab daily for 2 days PREDNISONE 75411618954 No Longer Active Brii Russ APRN Active PREDNISONE 20 MG ORAL TABLET 1 tablet twice daily for 2 days, then 1 tablet once daily for 2 days PREDNISONE 03493336786 No Longer Active Brii Russ APRN Active PROMETHAZINE HCL 12.5 MG ORAL TABLET 1 tablet by mouth every 6 hours as needed for nausea/vomiting PROMETHAZINE HCL 80078123169 No L onger Active Jono Gagnon DO Active CITRATE OF MAGNESIA ORAL SOLUTION 1 bottle today for constipatio n MAGNESIUM CITRATE 61384167863 No Longer Active Jono Gagnon DO Active ZOFRAN 4 MG ORAL TABLET 1 TAB PO Q 6 HRS PRN NAUSEA 07/10/15 ONDANSETRON HCL 26274751635 No Longer Active Brii Russ APRN Acti ve LOMOTIL 2.5-0.025 MG ORAL TABLET 1 to 2 four times a day as needed for diarrhea DIPHENOXYLATE-ATROPINE 86336383307 No Longer Active January Russ APRN Active AMOXICILLIN 500 MG ORAL TABLET 2 tabs twice a day for 10 days 20 07/09/11 AMOXICILLIN 10145494809 No Longer Active Brii Russ APRN Active CYCLOBENZAPRINE HCL 10 MG ORAL TABLET 1/2 - 1 tablet b y mouth three times daily as needed for muscle spasm/pain CYCLOBENZAPRINE HCL 86677614189 No Longer Active Arie Casper MD Active LOMOTIL 2.5-0.025 MG ORAL TABLET 1 to 2 four times a day as needed for diarrhea DIPHENOXYLATE-ATROPINE 76364250747 No Longer Active Fozia Casper MD Active MACROBID 100 MG ORAL CAPSULE 1 cap by mouth twice daily NITROFURANTOIN MONOHYD MACRO 41991366911 No Longer Active Arie Casper MD Active ZYRTEC ALLERGY 10 MG ORAL CAPSULE 1 po qd CE TIRIZINE HCL 22282724105 No Longer Active Arie Casper MD Active AZITHROMYCIN 250 MG ORAL TABLET 2 po qd x 1 day, then 1 po q d x 4 days AZITHROMYCIN 13101869662 No Longer Active Jessica salgado MOBILE NURSE Active PREDNISONE 20 MG ORAL TABLET 2 tabs daily for 3 days, 1 tab daily for 3 days, 1/2 tab daily for 2 days PREDNISONE 09935015074 No Longer Active Jessica Heaton MOBILE NURSE Active PROMETHAZINE HCL 25 MG ORAL TABLET 1 four times a day as nee ded for vomiting PROMETHAZINE HCL 02533782112 No Longer Active Myrna Roberto MD Active BACTRIM DS 800-160 MG ORAL TABLET 1 twice a day 05/30 SULFAMETHOXAZOLE-TRIMETHOPRIM 42946717866 No Longer Active Myrna Roberto MD Active VICKS DAYQUIL SEVERE COLD/FLU TABLET 1 tab every 6 hours prn 201 02/22/17 [id number] TABS 50927562346 No Longer Active Chris Roberto MD Active GUAIFENESIN-CODEINE 100-10 MG/5ML ORAL SYRUP 2 tsp every 6 hours prn GUAIFENESIN-CODEINE 65423946087 No Longer Active Myrna Roberto MD Active NAPROXEN 500 MG ORAL TABLET one tab PO BID NAPR OXEN 58160545725 No Longer Active Myrna Roberto MD Active AUGMENTIN 875-125 MG ORAL TABLET 1 tab by mouth twice daily with food AMOXICILLIN-POT CLAVULANATE 51569681598 No Longer Act zaid Liliana Estrada MD PhD Active AMOXICILLIN 500 MG ORAL CAPSULE 1 tab by mouth 3 times daily 201 02/21/05 AMOXICILLIN 27140351303 No Longer Active Liliana Estrada MD PhD Active TESSALON PERLES 100 MG ORAL CAPSULE 1 tablet by mouth 3 times da cory BENZONATATE 94705801964 No Longer Active Liliana Estrada MD PhD Active FLAGYL 500 MG ORAL TABLET 1 tablet by mouth two times daily 2014 METRONIDAZOLE 26148385400 No Longer Active Nilam Doran tive ZITHROMAX 250 MG ORAL TABLET 2 po today, then 1 po q days 2-5 20 06/08/16 AZITHROMYCIN 04354863500 No Longer Active Arie Casper MD Active VITAMINS 0.8 MG ORAL TABLET take 1 tab po qday [id number] 49646927371 No Longer Active Arie Casper MD Active IBUPROFEN 800 MG ORAL TABLET take one po Q 8 hours 201 02/01/16 IBUPROFEN 38794164077 No Longer Active Arie Casper MD Acti ve [facility] TUSSIN COUGH/COLD CF 5-10-100 MG/5ML ORAL LIQUID 2 teasp oons every 4 hours [id number] 64916195201 No Longer Active Blaine Casper MD Active COMTREX COLD/COUGH DAY/NITE MS 5-2-10-325 MG ORAL 2 caps deja ry 4 hours [id number] 68667518973 No Longer Active Da aleksandra Casper MD Active CHLORASEPTIC MAX SORE THROAT 15-10 MG MOUTH/THROAT LOZENGE 1 every 2 hours prn BENZOCAINE-MENTHOL 53256837145 No Longer Active Arie Casper MD Active PREDNISONE 20 MG ORAL TABLET 2 tabs daily for 3 days, 1 tab daily for 3 days, 1/2 tab daily for 2 days PREDNISONE 23367217604 No Longer Active Jose Zhong MD Active AZITHROMYCIN 250 MG ORAL TABLET 2 po qd x 1 day, then 1 po q d x 4 days AZITHROMYCIN 72790312672 No Longer Active Jose Mcwilliams MD Active ZOFRAN ODT 4 MG ORAL TABLET DISINTEGRATING 1 po q6hr PRN Nausea ONDANSETRON 05741042181 No Longer Active Rich Rosales MD Active ZOFRAN 4 MG ORAL TABLET 1 tablet every 4 hours ONDANSETRON HCL 16398599506 No Longer Active Rich Rosales MD Activ e MUCINEX 600 MG ORAL TABLET EXTENDED RELEASE 12 HOUR Ta ke 1-2 tablets every 12 hours GUAIFENESIN 01449112080 No Longer Active Rich Rosales MD Active BACTRIM 400-80 MG ORAL TABLET take one po BID SULFAMETHOXAZOLE-TRIMETHOPRIM 58192020071 No Longer Active Abelardo HERNANDEZ Active AZITHROMYCIN 500 MG ORAL TABLET 1 PO q day x 6 days 20 03/02/23 AZITHROMYCIN 18173598071 No Longer Active Tin HERNANDEZ Activ e ZITHROMAX 250 MG ORAL TABLET 2 po today, then 1 po q days 2-5 20 10/03/08 AZITHROMYCIN 96726949765 No Longer Active Arie Casper MD Active ZITHROMAX 250 MG ORAL TABLET 2 po today, then 1 po q days 2-5 20 09/23/25 AZITHROMYCIN 18913786831 No Longer Active Arie Casper MD Active AMOXICILLIN 500 MG ORAL CAPSULE 1 tab by mouth 3 times daily 201 11/24/09 AMOXICILLIN 83876258895 No Longer Active Arie Csaper MD Active BACTRIM DS 800-160 MG ORAL TABLET 1 tab by mouth twice daily 201 11/03/14 TRIMETHOPRIM-SULFAMETHOXAZOLE 02709537035 No Longer Active Fozia Casepr MD Active AMOXICILLIN 500 MG ORAL TABLET take 1 tab po TID 08/05 AMOXICILLIN 21454208563 No Longer Active Arie Casper MD Acti ve BACTRIM DS 800-160 MG ORAL TABLET 1 tab by mouth twice daily 201 11/03/14 BACTRIM DS 800-160 MG ORAL TABLET 193908 TRIMETHOPRIM-SULFAMETHOXAZOLE Inactive MUCINEX 600 MG ORAL TABLET EXTENDED RELEASE 12 HOUR Ta ke 1-2 tablets every 12 hours MUCINEX 600 MG ORAL TABLET EXTENDED RELEA SE 12 HOUR GUAIFENESIN Inactive ZOFRAN 4 MG ORAL TABLET 1 tablet every 4 hours ZOFRAN 4 MG ORAL TABLET 588756 ONDANSETRON HCL Inactive ZOFRAN ODT 4 MG ORAL TABLET DISINTEGRATING 1 po q6hr PRN Nausea ZOFRAN ODT 4 MG ORAL TABLET DISINTEGRATING 949911 ONDAN SETRON Inactive CHLORASEPTIC MAX SORE THROAT 15-10 MG MOUTH/THROAT LOZENGE 1 every 2 hours prn CHLORASEPTIC MAX SORE THROAT 15-10 MG MOUTH/THROAT LOZENGE BENZOCAINE-MENTHOL Inactive COMTREX COLD/COUGH DAY/NITE MS 5-2-10-325 MG ORAL 2 caps deja ry 4 hours COMTREX COLD/COUGH DAY/NITE MS 5-2-10-325 MG ORA L [id number] Inactive [facility] TUSSIN COUGH/COLD CF 5-10-100 MG/5ML ORAL LIQUID 2 teasp oons every 4 hours [facility] TUSSIN COUGH/COLD CF 5-10-100 MG/5ML ORAL LI QUID [id number] Inactive IBUPROFEN 800 MG ORAL TABLET take one po Q 8 hours 201 02/01/16 IBUPROFEN 800 MG ORAL TABLET IBUPROFEN Inactive VITAMINS 0.8 MG ORAL TABLET take 1 tab po qday VITAMINS 0.8 MG ORAL TABLET [id number] E-FA Inactive TESSALON PERLES 100 MG ORAL CAPSULE 1 tablet by mouth 3 times da cory TESSALON PERLES 100 MG ORAL CAPSULE 314166 BENZONATATE Inactive AMOXICILLIN 500 MG ORAL CAPSULE 1 tab by mouth 3 times daily 201 02/21/05 AMOXICILLIN 500 MG ORAL CAPSULE 746429 AMOXICILLIN Inactive GUAIFENESIN-CODEINE 100-10 MG/5ML ORAL SYRUP 2 tsp every 6 hours prn GUAIFENESIN-CODEINE 100-10 MG/5ML ORAL SYRUP 770096 GUAIFENESIN-CODEINE Inactive VICKS DAYQUIL SEVERE COLD/FLU TABLET 1 tab every 6 hours prn 201 02/22/17 VICKS DAYQUIL SEVERE COLD/FLU TABLET PHENYLEPHRI [id number] TABS Inactive BACTRIM DS 800-160 MG ORAL TABLET 1 twice a day 05/30 BACTRIM DS 800-160 MG ORAL TABLET 309874 SULFAMETHOXAZOLE-TRIMETHOPRIM Inactiv e PROMETHAZINE HCL 25 MG ORAL TABLET 1 four times a day as nee ded for vomiting PROMETHAZINE HCL 25 MG ORAL TABLET 173554 PROMETHAZINE HCL Inactive ZYRTEC ALLERGY 10 MG ORAL CAPSULE 1 po qd ZYRTEC ALLERGY 10 MG ORAL CAPSULE CETIRIZINE HCL Inactive MACROBID 100 MG ORAL CAPSULE 1 cap by mouth twice daily MACROBID 100 MG ORAL CAPSULE 8767406 NITROFURANTOIN MONOHYD MACRO In active LOMOTIL 2.5-0.025 MG ORAL TABLET 1 to 2 four times a day as needed for diarrhea LOMOTIL 2.5-0.025 MG ORAL TABLET 6143180 DIPHENOXYLATE-ATROPINE Inactive CYCLOBENZAPRINE HCL 10 MG ORAL TABLET 1/2 - 1 tablet b y mouth three times daily as needed for muscle spasm/pain CYCLOBEN ZAPRINE HCL 10 MG ORAL TABLET 779319 CYCLOBENZAPRINE HCL Inactive AMOXICILLIN 500 MG ORAL TABLET 2 tabs twice a day for 10 days 20 07/09/11 AMOXICILLIN 500 MG ORAL TABLET 244579 AMOXICILLIN I nactive LOMOTIL 2.5-0.025 MG ORAL TABLET 1 to 2 four times a day as needed for diarrhea LOMOTIL 2.5-0.025 MG ORAL TABLET 8902769 DIPHENOXYLATE-ATROPINE Inactive ZOFRAN 4 MG ORAL TABLET 1 TAB PO Q 6 HRS PRN NAUSEA 20 07/10/15 ZOFRAN 4 MG ORAL TABLET 339056 ONDANSETRON HCL Inactive CITRATE OF MAGNESIA ORAL SOLUTION 1 bottle today for constipatio n CITRATE OF MAGNESIA ORAL SOLUTION 8626219 MAGNESIUM CITR ATE Inactive PROMETHAZINE HCL 12.5 MG ORAL TABLET 1 tablet by mouth every 6 hours as needed for nausea/vomiting PROMETHAZINE HCL 12.5 MG ORA L TABLET 165312 PROMETHAZINE HCL Inactive PREDNISONE 20 MG ORAL TABLET 1 tablet twice daily for 2 days, then 1 tablet once daily for 2 days PREDNISONE 20 MG ORAL TABLET 306507 PREDNISONE Inactive ALPRAZOLAM 0.25 MG ORAL TABLET 1 tablet by mouth every 8 hours as needed for stress ALPRAZOLAM 0.25 MG ORAL TABLET 695081 ALPRA ZOLAM Inactive FLONASE 50 MCG/ACT NASAL SUSPENSION 1 spray each nostr il twice daily for allergies and runny nose until gone FLON ASE 50 MCG/ACT NASAL SUSPENSION 2683369 FLUTICASONE PROPIONATE Inactive PREDNISONE 20 MG ORAL TABLET 1 tablet daily for airway inflammat ion PREDNISONE 20 MG ORAL TABLET 506984 PREDNISONE [place] ctive NAPROXEN 500 MG ORAL TABLET Take 1 tab BID NAPROXEN 500 MG ORAL TABLET 050940 NAPROXEN Inactive ZOLOFT 50 MG ORAL TABLET 1 tablet by mouth daily 12/08 ZOLOFT 50 MG ORAL TABLET 028779 SERTRALINE HCL Inactive LOMOTIL 2.5-0.025 MG ORAL TABLET 1 tab po four times a day as needed for diarrhea LOMOTIL 2.5-0.025 MG ORAL TABLET 9081475 DIPHENOXYLATE-ATROPINE Inactive CETIRIZINE HCL 10 MG ORAL TABLET 1 po qd PRN Allergies CETIRIZINE HCL 10 MG ORAL TABLET 7146853 CETIRIZINE HCL Inactiv e TUSSIONEX PENNKINETIC ER 10-8 MG/5ML ORAL SUSPENSION E XTENDED RELEASE 5ml po q12hr PRN Cough TUSSIONEX PENNKINETI C ER 10-8 MG/5ML ORAL SUSPENSION EXTENDED RELEASE HYDROCOD POLST-CHLORPHEN POLST I nactive NEXPLANON IMPLANT right arm subcutaneously NEXPLANON IMPLANT ETONOGESTREL IMPL Inactive PROTONIX 40 MG ORAL TABLET DELAYED RELEASE 1 po q a.m. PROTONIX 40 MG ORAL TABLET DELAYED RELEASE 684875 PANTOPRAZOLE SODI UM Inactive CHERATUSSIN AC 100-10 MG/5ML ORAL SYRUP 1 tsp by mouth every 4 hours as needed for cough CHERATUSSIN AC 100-10 MG/5ML ORAL SYRUP 9 15585 GUAIFENESIN-CODEINE Inactive GUAIFENESIN DM 400-20 MG ORAL [...] TID 08/05 AMOXICILLIN 500 MG ORAL TABLET 681084 AMOXICILLIN Inactive AMOXICILLIN 500 MG ORAL CAPSULE 1 tab by mouth 3 times daily 201 11/24/09 AMOXICILLIN 500 MG ORAL CAPSULE 632621 AMOXICILLIN Inactive ZITHROMAX 250 MG ORAL TABLET 2 po today, then 1 po q days 2-5 20 09/23/25 ZITHROMAX 250 MG ORAL TABLET 162054 AZITHROMYCIN [place] ctive ZITHROMAX 250 MG ORAL TABLET 2 po today, then 1 po q days 2-5 20 10/03/08 ZITHROMAX 250 MG ORAL TABLET 827253 AZITHROMYCIN [place] ctive AZITHROMYCIN 500 MG ORAL TABLET 1 PO q day x 6 days 03/02/23 AZITHROMYCIN 500 MG ORAL TABLET 4376910 AZITHROMYCIN Inactive BACTRIM 400-80 MG ORAL TABLET take one po BID BACTRIM 400- 80 MG ORAL TABLET 347664 SULFAMETHOXAZOLE-TRIMETHOPRIM Inactive AZITHROMYCIN 250 MG ORAL TABLET 2 po qd x 1 day, then 1 po q d x 4 days AZITHROMYCIN 250 MG ORAL TABLET 974555 AZITHROMY ALLISON Inactive PREDNISONE 20 MG ORAL TABLET 2 tabs daily for 3 days, 1 tab daily for 3 days, 1/2 tab daily for 2 days PREDNISONE 20 MG ORAL T ABLET 460126 PREDNISONE Inactive ZITHROMAX 250 MG ORAL TABLET 2 po today, then 1 po q days 2-5 20 06/08/16 ZITHROMAX 250 MG ORAL TABLET 185625 AZITHROMYCIN [place] ctive FLAGYL 500 MG ORAL TABLET 1 tablet by mouth two times daily 2014 FLAGYL 500 MG ORAL TABLET 320107 METRONIDAZOLE Inacti ve AUGMENTIN 875-125 MG ORAL TABLET 1 tab by mouth twice daily with food AUGMENTIN 875-125 MG ORAL TABLET 953455 AMOXICIL ELSA-POT CLAVULANATE Inactive NAPROXEN 500 MG ORAL TABLET one tab PO BID NAPROXEN 500 MG ORAL TABLET 012751 NAPROXEN Inactive PREDNISONE 20 MG ORAL TABLET 2 tabs daily for 3 days, 1 tab daily for 3 days, 1/2 tab daily for 2 days PREDNISONE 20 MG ORAL T ABLET 132505 PREDNISONE Inactive AZITHROMYCIN 250 MG ORAL TABLET 2 po qd x 1 day, then 1 po q d x 4 days AZITHROMYCIN 250 MG ORAL TABLET 933148 AZITHROMY ALLISON Inactive PREDNISONE 20 MG ORAL TABLET 2 tabs daily for 3 days, 1 tab daily for 3 days, 1/2 tab daily for 2 days PREDNISONE 20 MG ORAL T ABLET 576077 PREDNISONE Inactive ZITHROMAX Z-EMIL 250 MG ORAL TABLET 2 today, then 1 daily for 4 d ays ZITHROMAX Z-EMIL 250 MG ORAL TABLET 696229 AZITHROMYCIN Inactive CEFDINIR 300 MG ORAL CAPSULE [...] days PREDNISONE 20 MG ORAL T ABLET 473996 PREDNISONE Inactive BACTRIM DS 800-160 MG ORAL TABLET 1 tab by mouth twice daily 201 05/02/30 BACTRIM DS 800-160 MG ORAL TABLET 401509 TRIMETHOPRIM-SULFAMETHOXAZOLE Inactive ZITHROMAX Z-EMIL 250 MG ORAL TABLET 2 today, then 1 daily for 4 d ays ZITHROMAX Z-EMIL 250 MG ORAL TABLET 894136 AZITHROMYCIN Inactive TAMIFLU 75 MG ORAL CAPSULE 1 po BID x 5 days 0 TAMIFLU 75 MG ORAL CAPSULE 743515 OSELTAMIVIR PHOSPHATE Inactive CEFDINIR 300 MG ORAL CAPSULE 1 po BID x 10 days 2018/01/03 CEFDINIR 300 MG ORAL CAPSULE 946390 CEFDINIR Inactive ZITHROMAX Z-EMIL 250 MG TABS Take two tablets today and then 1 tablet daily for 4 days ZITHROMAX Z-EMIL 250 MG TABS 377996 AZITHROM YCIN Inactive Advance Directives Directive Description [...] Negative Encounters Code Encounter Date Provider Facility CPT-68712 Level 3 Est. Patient 11:49:34 ARBOREAL SCIENTIST Jessica boyd [facility] CPT-62697 Level 3 Est. Patient 14:55:50 ARBOREAL SCIENTIST Jose Zhong MD [facility] CPT-25341 Level 3 Est. Patient 10:21:41 ARBOREAL SCIENTIST Arie mcqueen MD [facility]-45463 Level 3 Est. Patient 11:35:15 ARBOREAL SCIENTIST Arie mcqueen MD [facility]-30821 Level 3 Est. Patient 15:40:28 CDT Brii Are [facility] CPT-92894 Level 3 Est. Patient 16:40:36 CDT Arie mcqueen MD [facility] CPT-42813 Level 4 Est. Patient 15:29:22 ARBOREAL SCIENTIST Arie mcqueen MD [facility]-94381 Level 3 Est. Patient 15:18:16 ARBOREAL SCIENTIST Jono black DO [facility] CPT-22053 Level 4 Est. Patient 12:08:40 ARBOREAL SCIENTIST Brii Are [facility]-65252 Level 3 Est. Patient 09:24:42 CDT Brii Are [facility] CPT-37510 Level 3 Est. Patient 09:12:56 CDT Arie mcqueen MD [facility] CPT-83171 Level 3 Est. Patient 16:40:54 CDT Jose Zhong MD [facility] CPT-63877 Level 2 Est. Patient 13:01:13 CDT Brii Are ll [facility] CPT-52176 Level 3 Est. Patient 11:55:30 ARBOREAL SCIENTIST Jono Cheema ee DO [facility] CPT-77270 Level 3 Est. Patient 09:52:36 ARBOREAL SCIENTIST Brii Are ll [facility] CPT-20680 Level 3 Est. Patient 16:25:33 ARBOREAL SCIENTIST Rich Rosales MD [facility] CPT-95676 Level 3 Est. Patient 20:33:55 CDT Arie mcqueen MD [facility] CPT-10914 Level 3 Est. Patient 14:18:20 CDT Rich Rosales MD [facility] CPT-08444 Level 4 Est. Patient 09:34:31 CDT Arie mcqueen MD [facility] CPT-09954 Level 3 Est. Patient 09:08:55 ARBOREAL SCIENTIST Liliana vincent MD PhD [facility] CPT-07113 Level 3 Est. Patient 16:44:07 ARBOREAL SCIENTIST Arie mcqueen MD [facility] CPT-84752 Level 3 Est. Patient 10:44:27 CDT Arie mcqueen MD [facility] CPT-54735 Level 3 Est. Patient 08:55:41 CDT Jose Zhong MD [facility] CPT-92414 Level 3 Est. Patient 18:37:31 CDT Liliana vincent MD PhD [facility] CPT-92002 Level 3 Est. Patient 14:28:23 CDT Abelardo HERNANDEZ [facility] CPT-61932 Level 3 Est. Patient 15:18:13 ARBOREAL SCIENTIST Arie mcqueen MD [facility] CPT-31074 Level 3 Est. Patient 10:11:29 ARBOREAL SCIENTIST Arie mcqueen MD [facility] CPT-18776 Level 3 Est. Patient 10:55:57 ARBOREAL SCIENTIST Jono black DO [facility] CPT-39309 Level 3 Est. Patient 17:29:05 CDT Arie mcqueen MD [facility] Procedures Code Procedure Name Date Entry Date Standard Desc ription CPT-78872 Nexplanon Removal 15:40:28 CDT CPT-78421 Sono transvag pelvis non OB uterus ovari es cervix - XRAY USE ONLY 08:58:14 ARBOREAL SCIENTIST CPT-63766 UA w micro - LAB USE ONLY 16:04:56 ARBOREAL SCIENTIST 2015 CPT-60401 Wet Prep/EGN - LAB USE ONLY 16:04:56 ARBOREAL SCIENTIST 20 08/10/29 CPT-28226 First Vx - Ix admin via ID I M or jet injects without counseling by physician 16:57:10 CDT CPT-19086 Fluzone Preservative Free Intramuscular Suspension 16:57:10 CDT CPT-J0696 Rocephin 1000 mg (Ceftriaxone) 11:49:23 CDT CPT-J1040 Depo Medrol 80 mg (Methyl Prednisolone A cetate) 11:49:23 CDT CPT-J1100 Decadron 8mg (Dexamethasone) 11:49:23 CDT 2 CPT-47498 Abx/Therapy Injection 11:49:23 CDT CPT-20368 Abx/Therapy Injection 11:49:23 CDT CPT-45212 Abd compl w upright 09:07:26 ARBOREAL SCIENTIST CPT-50838 Ear Wash 16:12:47 ARBOREAL SCIENTIST CPT-OV Office Visit 11:12:01 CDT CPT-OV Office Visit 15:30:23 CDT CPT-16144 Sono pelvis non OB uterus ovaries cervix 15:50:44 CDT CPT-00689 Hand comp min 3V 16:42:32 CDT CPT-62837 Abd compl w upright 12:17:01 CDT CPT-86310 Nexplanon Placement 15:07:39 ARBOREAL SCIENTIST CPT-54462 Removal of IUD 15:07:39 ARBOREAL SCIENTIST CPT-05493 TB Tubersol 12:09:32 CDT CPT-37129 TB Tubersol 13:55:43 CDT
--- OUTSIDE RECORDS SUMMARY | 2020-03-03 08:28 | XMS REPORT | Clinical Summary ---
Author Author Admin, Diamante Marcelo Organization [employer] Address Unknown Phone Unavailable Allergies, Adverse Reactions, [...] site Abdominal pain 789.00 Active Brii Larson GAMB[employer]ER HELPER Abdominal pain, unspecified site Diarrhea 787.91 Resolved Jose Zhong MD Diarrhea Thumb pain, right 729.5 Resolved Jose Zhong MD Pain in limb Sinusitis, acute 461.9 Resolved Liliana Estrada MD PhD Acute sinusitis, unspecified Fever 780.60 Resolved Liliana Estrada MD PhD Fever, unspecified Symptom, cough 786.2 Resolved Lliiana Estrada MD Ph D Cough Vaginal discharge [...] cute pharyngitis Nausea 787.02 Active Brii Larson G[employer]ER HELPER Nausea alone URI 465.9 Active Jono Gagnon DO Acu te upper respiratory infections of unspecified site Allergic rhinitis 477.9 Active Brii Christianson PRN Allergic rhinitis, cause unspecified Abdominal pain, right lower quadrant 789.03 Active Jose Zhong MD Abdominal pain, right lower quadrant Urinary frequency 788.41 Inactive Rsoeann Crawford Urinary frequency Sinusitis - acute 461.9 Active Brii Christianson PRN Acute sinusitis, unspecified Anxiety with depression 300.4 Active Glenn Larson GAMBRELER HELPER Dysthymic disorder FH COLON CANCER ICD-V16.0 Inactive Jose Zhong [...] tablet by mouth daily SERTRA LINE HCL 50787677170 Active Brii Larson APRN Active LOMOTIL 2.5-0.025 MG TAB 1 tab po four times a day as needed for diarrhea DIPHENOXYLATE-ATROPINE 25325714943 Active Brii Larson APRN Active ZITHROMAX Z-EMIL 250 MG TABS 2 today, then 1 daily for 4 days 201 03/31/18 AZITHROMYCIN 15978587289 No Longer Active Arie Casper MD Active ALPRAZOLAM 0.25 MG TAB 1 tablet by mouth every 8 hours as ne eded for stress ALPRAZOLAM 95869417655 Active Brii Larson APRN Active PROTONIX 40 MG ORAL TBEC 1 po q a.m. PANTOPRAZO LE SODIUM 34115968478 Active Carline Ochoa RPT,RMA Active PREDNISONE 20 MG TAB 2 tabs daily for 3 days, 1 t ab daily for 3 days, 1/2 tab daily for 2 days PREDNISONE 31838625094 No Longer Active Brii Larson APRN Active PREDNISONE 20 MG TAB 1 tablet twice daily for 2 d ays, then 1 tablet once daily for 2 days PREDNISONE 44650095242 No Longer Active Brii Larson APRN Active FLONASE 50 MCG/ACT SUSP 1 spray each nostril twice d aily for allergies and runny nose until gone FLUTICASONE PROPIONATE Active Jono Gagnon DO Active PROMETHAZINE HCL 12.5 MG TABS 1 tablet by mouth every 6 hours as needed for nausea/vomiting PROMETHAZINE HCL 56997561304 No Longe r Active Jono Gagnon DO Active CITRATE OF MAGNESIA ORAL SOLN 1 bottle today for constipation 20 07/10/15 MAGNESIUM CITRATE 69524728698 No Longer Active Jono Gagnon DO Active ZOFRAN 4 MG ORAL TABS 1 TAB PO Q 6 HRS PRN NAUSEA 2014 ONDANSETRON HCL 07545432335 No Longer Active Brii Larson APRN A ctive LOMOTIL 2.5-0.025 MG TAB 1 to 2 four times a day as needed f or diarrhea DIPHENOXYLATE-ATROPINE 21918583180 No Longer Active January Larson APRN Active AMOXICILLIN 500 MG TABS 2 tabs twice a day for 10 days AMOXICILLIN 54617618688 No Longer Active Brii Larson APRN Acti ve NEXPLANON IMPL ETONOGESTREL IMPL 07871689673 Active Rich Rosales MD Active CYCLOBENZAPRINE HCL 10 MG TABS 1/2 - 1 tablet by mouth three times daily as needed for muscle spasm/pain CYCLOBENZAPRINE HCL 02845100172 No Longer Active Arie Casper MD Active LOMOTIL 2.5-0.025 MG TABS 1 to 2 four times a day as needed for diarrhea DIPHENOXYLATE-ATROPINE 09784147244 No Longer Active Mason Casper MD Active MACROBID 100 MG CAP 1 cap by mouth twice daily NITROFURANTOIN MONOHYD MACRO 62023167601 No Longer Active Arie Casper MD Active ZYRTEC ALLERGY 10 MG CAPS 1 po qd CETIRIZINE HCL 72991448332 No Longer Active Arie Casper MD Active AZITHROMYCIN 250 MG TABS 2 po qd x 1 day, then 1 po qd x 4 days AZITHROMYCIN 98584374977 No Longer Active Jillina Frazell [employer]ER HELPER Active PREDNISONE 20 MG TAB 2 tabs daily for 3 days, 1 t ab daily for 3 days, 1/2 tab daily for 2 days PREDNISONE 41485932760 No Longer Active Jillina Frazell GAMBRELER HELPER Active PROMETHAZINE HCL 25 MG TABS 1 four times a day as needed for vomiting PROMETHAZINE HCL 39847452389 No Longer Active Myrna Roberto MD Active BACTRIM DS 800-160 MG TABS 1 twice a day SULFAMETHOXAZOLE-TRIMETHOPRIM 23629433461 No Longer Active Myrna Roberto MD Active VICKS DAYQUIL SEVERE COLD/FLU TABS 1 tab every 6 hours prn 12/10 [id number] TABS 76403775160 No Longer Active Myrna leigh MD Active GUAIFENESIN-CODEINE 100-10 MG/5ML ORAL SYRP 2 tsp every 6 hours prn GUAIFENESIN-CODEINE 95714648941 No Longer Active Myrna Roberto MD Active NAPROXEN 500 MG TAB one tab PO BID NAPROXEN 332 40652012 No Longer Active Myrna Roberto MD Active AUGMENTIN 875-125 MG TAB 1 tab by mouth twice daily with food 08/12/16 AMOXICILLIN-POT CLAVULANATE 13084366876 No Longer Active Liliana Estrada MD PhD Active AMOXICILLIN 500 MG CAP 1 tab by mouth 3 times daily 08/12/16 AMOXICILLIN 00589116304 No Longer Active Liliana Estrada MD PhD Acti ve TESSALON PERLES 100 MG CAP 1 tablet by mouth 3 times daily 11/01 BENZONATATE 12984228911 No Longer Active Liliana Estrada MD PhD Active FLAGYL 500 MG TAB 1 tablet by mouth two times daily 20 07/11/29 METRONIDAZOLE 77069441015 No Longer Active Nilam Weber Active ZITHROMAX 250 MG TAB 2 po today, then 1 po q days 2-5 AZITHROMYCIN 91422369793 No Longer Active Arie Casper MD Acti ve VITAMINS 0.8 MG TABS take 1 tab po qday 08/08 [id number] 29135646387 No Longer Active Arie Casper MD Active IBUPROFEN 800 MG TABS take one po Q 8 hours IBU PROFEN 39126793863 No Longer Active Arie Casper MD Active [facility] TUSSIN COUGH/COLD CF 5-10-100 MG/5ML LIQD 2 teaspoons ev eliud 4 hours [id number] 93597316499 No Longer Active Blaine Casper MD Active COMTREX COLD/COUGH DAY/NITE MS 5-2-10-325 MG MISC 2 caps deja ry 4 hours [id number] 59839562399 No Longer Active Da vimason Casper MD Active CHLORASEPTIC MAX SORE THROAT 15-10 MG LOZG 1 every 2 hours prn 2 BENZOCAINE-MENTHOL 29079648284 No Longer Active Arie Marcelo Active PREDNISONE 20 MG TAB 2 tabs daily for 3 days, 1 t ab daily for 3 days, 1/2 tab daily for 2 days PREDNISONE 70661940796 No Longer Active Jose Zhong MD Active AZITHROMYCIN 250 MG TABS 2 po qd x 1 day, then 1 po qd x 4 days AZITHROMYCIN 19059873166 No Longer Active Jose Zhong MD Active ZOFRAN ODT 4 MG TBDP 1 po q6hr PRN Nausea ONDAN SETRON 84035999804 No Longer Active Rich Rosales MD Active ZOFRAN 4 MG TABS 1 tablet every 4 hours ONDANSE JERRELL HCL 08421026278 No Longer Active Rich Rosales MD Active MUCINEX 600 MG [id number] Take 1-2 tablets every 12 hours GUAIFENESIN 40008521794 No Longer Active Rich Rosales MD Activ e BACTRIM 400-80 MG TABS take one po BID SULFAMETHOXAZOLE-TRIMETHOPRIM 95064546196 No Longer Active Abelardo HERNANDEZ Active AZITHROMYCIN 500 MG TABS 1 PO q day x 6 days AZ ITHROMYCIN 04600626468 No Longer Active Tin HERNANDEZ Active ZITHROMAX 250 MG TAB 2 po today, then 1 po q days 2-5 AZITHROMYCIN 39218188575 No Longer Active Arie Casper MD Acti ve ZITHROMAX 250 MG TAB 2 po today, then 1 po q days 2-5 AZITHROMYCIN 72714049735 No Longer Active Arie Casper MD Acti ve AMOXICILLIN 500 MG CAP 1 tab by mouth 3 times daily 20 09/23/20 AMOXICILLIN 64812551174 No Longer Active Arie Casper MD Acti ve BACTRIM DS 800-160 MG TAB 1 tab by mouth twice daily 2 TRIMETHOPRIM-SULFAMETHOXAZOLE 81412050713 No Longer Active Arie Casper MD Active AMOXICILLIN 500 MG TABS take 1 tab po TID AMOXI CILLIN 01042109603 No Longer Active Arie Casper MD Active BACTRIM DS 800-160 MG TAB 1 tab by mouth twice daily 2 BACTRIM DS 800-160 MG TAB 433656 TRIMETHOPRIM-SULFAMETHOXAZOLE Inac tive MUCINEX 600 MG [id number] Take 1-2 tablets every 12 hours MUCINEX 600 MG [id number] GUAIFENESIN Inactive ZOFRAN 4 MG TABS 1 tablet every 4 hours ZOFRAN 4 MG TABS 933675 ONDANSETRON HCL Inactive ZOFRAN ODT 4 MG TBDP 1 po q6hr PRN Nausea ZOFRAN ODT 4 MG TBDP 779323 ONDANSETRON Inactive CHLORASEPTIC MAX SORE THROAT 15-10 MG LOZG 1 every 2 hours prn 2 /04/30 CHLORASEPTIC MAX SORE THROAT 15-10 MG LOZG BENZO ARINA-MENTHOL Inactive COMTREX COLD/COUGH DAY/NITE MS 5-2-10-325 MG MISC 2 caps deja ry 4 hours COMTREX COLD/COUGH DAY/NITE MS 5-2-10-325 MG MIS C [id number] Inactive [facility] TUSSIN COUGH/COLD CF 5-10-100 MG/5ML LIQD 2 teaspoons ev eliud 4 hours [facility] TUSSIN COUGH/COLD CF 5-10-100 MG/5ML LIQD [id number] Inactive IBUPROFEN 800 MG TABS take one po Q 8 hours IBUPROFEN 800 MG TABS 701300 IBUPROFEN Inactive VITAMINS 0.8 MG TABS take 1 tab po qday 08/08 VITAMINS 0.8 MG TABS [id number] Inactive TESSALON PERLES 100 MG CAP 1 tablet by mouth 3 times daily 11/01 TESSALON PERLES 100 MG CAP 549258 BENZONATATE Inact zaid AMOXICILLIN 500 MG CAP 1 tab by mouth 3 times daily 08/12/16 AMOXICILLIN 500 MG CAP 755601 AMOXICILLIN Inactive GUAIFENESIN-CODEINE 100-10 MG/5ML ORAL SYRP 2 tsp every 6 hours prn GUAIFENESIN-CODEINE 100-10 MG/5ML ORAL SYRP 610524 GUAIFENESIN-CODEINE Inactive VICKS DAYQUIL SEVERE COLD/FLU TABS 1 tab every 6 hours prn 12/10 VICKS DAYQUIL SEVERE COLD/FLU TABS PHENYLEPHRINE -DM-GG-APAP TABS Inactive BACTRIM DS 800-160 MG TABS 1 twice a day BACTRIM DS 800- 160 MG TABS 366247 SULFAMETHOXAZOLE-TRIMETHOPRIM Inactive PROMETHAZINE HCL 25 MG TABS 1 four times a day as needed for vomiting PROMETHAZINE HCL 25 MG TABS 500123 PROMETHAZINE HCL Inactive ZYRTEC ALLERGY 10 MG CAPS 1 po qd ZY RTEC ALLERGY 10 MG CAPS CETIRIZINE HCL Inactive MACROBID 100 MG CAP 1 cap by mouth twice daily MACROBID 100 MG CAP 6860955 NITROFURANTOIN MONOHYD MACRO Inactive LOMOTIL 2.5-0.025 MG TABS 1 to 2 four times a day as needed for diarrhea LOMOTIL 2.5-0.025 MG TABS 9435606 DIPHENOXYLATE-A TROPINE Inactive CYCLOBENZAPRINE HCL 10 MG TABS 1/2 - 1 tablet by mouth three times daily as needed for muscle spasm/pain CYCLOBENZAP RINE HCL 10 MG TABS 081860 CYCLOBENZAPRINE HCL Inactive AMOXICILLIN 500 MG TABS 2 tabs twice a day for 10 days AMOXICILLIN 500 MG TABS 472465 AMOXICILLIN Inactive LOMOTIL 2.5-0.025 MG TAB 1 to 2 four times a day as needed f or diarrhea LOMOTIL 2.5-0.025 MG TAB 6719777 DIPHENOXYLATE-AT ROPINE Inactive ZOFRAN 4 MG ORAL TABS 1 TAB PO Q 6 HRS PRN NAUSEA 2014 ZOFRAN 4 MG ORAL TABS 205389 ONDANSETRON HCL Inactive CITRATE OF MAGNESIA ORAL SOLN 1 bottle today for constipation 20 07/10/15 CITRATE OF MAGNESIA ORAL SOLN 7723675 MAGNESIUM CITRATE Inactive PROMETHAZINE HCL 12.5 MG TABS 1 tablet by mouth every 6 hours as needed for nausea/vomiting PROMETHAZINE HCL 12.5 MG TABS 715141 PROMETHAZINE HCL Inactive PREDNISONE 20 MG TAB 1 tablet twice daily for 2 d ays, then 1 tablet once daily for 2 days PREDNISONE 20 MG TAB 816905 PREDNISONE Inac tive AMOXICILLIN 500 MG TABS take 1 tab po TID AMOXICILLIN 500 MG TABS 274143 AMOXICILLIN Inactive AMOXICILLIN 500 MG CAP 1 tab by mouth 3 times daily 09/23/20 AMOXICILLIN 500 MG CAP 503701 AMOXICILLIN Inactive ZITHROMAX 250 MG TAB 2 po today, then 1 po q days 2-5 ZITHROMAX 250 MG TAB 4467606 AZITHROMYCIN Inactive ZITHROMAX 250 MG TAB 2 po today, then 1 po q days 2-5 ZITHROMAX 250 MG TAB 2909287 AZITHROMYCIN Inactive AZITHROMYCIN 500 MG TABS 1 PO q day x 6 days 3 AZITHROMYCIN 500 MG TABS 0164054 AZITHROMYCIN Inactive BACTRIM 400-80 MG TABS take one po BID BA CTRIM 400-80 MG TABS 253405 SULFAMETHOXAZOLE-TRIMETHOPRIM Inactive AZITHROMYCIN 250 MG TABS 2 po qd x 1 day, then 1 po qd x 4 days AZITHROMYCIN 250 MG TABS 2853700 AZITHROMYCIN Inactiv e PREDNISONE 20 MG TAB 2 tabs daily for 3 days, 1 t ab daily for 3 days, 1/2 tab daily for 2 days PREDNISONE 20 MG TAB 286935 PREDNISON E Inactive ZITHROMAX 250 MG TAB 2 po today, then 1 po q days 2-5 ZITHROMAX 250 MG TAB 7307393 AZITHROMYCIN Inactive FLAGYL 500 MG TAB 1 tablet by mouth two times daily 07/11/29 FLAGYL 500 MG TAB 480725 METRONIDAZOLE Inactive AUGMENTIN 875-125 MG TAB 1 tab by mouth twice daily with food 20 08/12/16 AUGMENTIN 875-125 MG TAB 013989 AMOXICILLIN-POT CLAVULA ANGELO Inactive NAPROXEN 500 MG TAB one tab PO BID NAPROXEN 500 MG TAB 331802 NAPROXEN Inactive PREDNISONE 20 MG TAB 2 tabs daily for 3 days, 1 t ab daily for 3 days, 1/2 tab daily for 2 days PREDNISONE 20 MG TAB 185909 PREDNISON E Inactive AZITHROMYCIN 250 MG TABS 2 po qd x 1 day, then 1 po qd x 4 days AZITHROMYCIN 250 MG TABS 5135584 AZITHROMYCIN Inactiv e PREDNISONE 20 MG TAB 2 tabs daily for 3 days, 1 t ab daily for 3 days, 1/2 tab daily for 2 days PREDNISONE 20 MG TAB 886285 PREDNISON E Inactive ZITHROMAX Z-EMIL 250 MG TABS 2 today, then 1 daily for 4 days 201 03/31/18 ZITHROMAX Z-EMIL 250 MG TABS 2222272 AZITHROMYCIN Inac tive Advance Directives Directive Description [...] mm Lab Report: CBC W/DIFF - Hematology hemoglobin, blood 13.0 g/dL 12.0-16.0 hematocrit, blood 38.9 % 36.0-46.0 mean corpuscular volume, RBC 82 fL 80-97 mean corpuscular hemoglobin, RBC 27.3 pg 27. 0-31.2 mean corpuscular hemoglobin concentration, RBC 33.5 G/DL % 31.8-35.4 red blood cell distribution width 14.0 % 11 .6-14.8 platelet count 276 10^3/MM^3 10*3/mm3 298-465 6270/12/15 erythrocyte (RBC) count 4.77 10^6/MM^3 10*6/mm3 4.04-5.4 8 lymphocytes as percent of blood leukocytes 21.8 % 20.5-51.1 monocytes as percent of blood leukocytes 8.4 % 1.7-9.3 neutrophils as percent of blood leukocytes 64.1 % 42.2-75.2 leukocyte count, blood 8.4 10^3/MM^3 10*3/mm3 4.6-10.2 Lab Report: CBC W/DIFF, Comp. Metabolic Panel - Chemistry sodium, serum 136 mmol/L 365-355 1776/04/26 carbon dioxide, venous blood 29.9 mmol/L 21.0-32 [...] CBC W/DIFF, Comp. Metabolic Panel - Hematology neutrophils as percent of blood leukocytes 67.2 % 42.2-75.2 monocytes as percent of blood leukocytes 7.1 % 1.7-9.3 lymphocytes as percent of blood leukocytes 20.6 % 20.5-51.1 erythrocyte (RBC) count 4.76 10^6/MM^3 10*6/mm3 4.04-5.4 8 hemoglobin, blood 12.8 g/dL 12.0-16.0 leukocyte count, blood 15.9 10^3/MM^3 10*3/mm3 4.6-10.2 hematocrit, blood 39.0 % 36.0-46.0 mean corpuscular volume, RBC 82 fL 80-97 mean corpuscular hemoglobin, RBC 26.9 pg 27. 0-31.2 mean corpuscular hemoglobin concentration, RBC 32.8 G/DL % 31.8-35.4 red blood cell distribution width 14.1 % 11 .6-14.8 platelet count 284 10^3/MM^3 10*3/mm3 142-424 Lab Report: Comp. Metabolic Panel - Chem istry sodium, serum 139 mmol/L 502-746 1674/12/15 creatinine, serum 0.81 mg/dL 0.55-1.30 alanine aminotransferase (SGPT), serum 20 U/L 12-78 aspartate aminotransferase (SGOT), serum 10 U/L 15-37 calcium, serum 8.4 mg/dL 8.5-10.1 bilirubin, serum, total 0.60 mg/dL 0.00-1.00 carbon dioxide, venous blood 30.2 mmol/L 21.0-32 .0 potassium, serum 3.4 mmol/L 3.5-5.2 chloride, serum 101 mmol/L 98-107 blood glucose 92 mg/dL 65-110 urea nitrogen, blood 5 mg/dL 7-18 Lab Report: RapidStrep Rflx/Cx - Lab Microbial [...] Negative Encounters Code Encounter Date Provider Facility CPT-27832 Level 3 Est. Patient 09:24:42 CDT Steve GAMBRELER HELPER [facility] CPT-41362 Level 3 Est. Patient 09:12:56 CDT Arie mcqueen MD [facility] CPT-01792 Level 3 Est. Patient 16:40:54 CDT Jose Zhong MD [facility] CPT-98220 Level 2 Est. Patient 13:01:13 CDT Steve G[employer]BRELER HELPER [facility] CPT-56649 Level 3 Est. Patient 11:55:30 [employer] Jono black DO [facility] CPT-42625 Level 3 Est. Patient 09:52:36 [employer] Steve CABRERA [facility] CPT-73736 Level 3 Est. Patient 16:25:33 [employer] Rich Rosales MD [facility] CPT-14178 Level 3 Est. Patient 20:33:55 CDT Arie mcqueen MD [facility] CPT-13015 Level 3 Est. Patient 14:18:20 CDT Rich Rosales MD [facility] CPT-07099 Level 4 Est. Patient 09:34:31 CDT Arie mcqueen MD [facility]-41935 Level 3 Est. Patient 09:08:55 [employer] Liliana vincent MD PhD [facility]-16404 Level 3 Est. Patient 16:44:07 [employer] Arie mcqueen MD [facility]-37214 Level 3 Est. Patient 10:44:27 CDT Arie mcqueen MD [facility]-26017 Level 3 Est. Patient 08:55:41 CDT Jose Zhong MD [facility] CPT-96244 Level 3 Est. Patient 18:37:31 CDT Liliana vincent MD PhD [facility] CPT-96980 Level 3 Est. Patient 14:28:23 CDT Abelardo HERNANDEZ [facility]-44279 Level 3 Est. Patient 15:18:13 [employer] Arie mcqueen MD [facility] CPT-27022 Level 3 Est. Patient 10:11:29 [employer] Arie mcqueen MD [facility] CPT-47811 Level 3 Est. Patient 10:55:57 [employer] Jono black DO [facility]-96016 Level 3 Est. Patient 17:29:05 CDT Arie mcqueen MD [facility] Procedures Code Procedure Name Date Entry Date Standard Desc ription CPT-23845 First Vx - Ix admin via ID I M or jet injects without counseling by physician 16:57:10 CDT CPT-66126 Fluzone Preservative Free Intramuscular Suspension 16:57:10 CDT CPT-J0696 Rocephin 1000 mg (Ceftriaxone) 11:49:23 CDT CPT-J1040 Depo Medrol 80 mg (Methyl Prednisolone A cetate) 11:49:23 CDT CPT-J1100 Decadron 8mg (Dexamethasone) 11:49:23 CDT 2 CPT-36870 Abx/Therapy Injection 11:49:23 CDT CPT-59970 Abx/Therapy Injection 11:49:23 CDT CPT-45382 Abd compl w upright 09:07:26 [employer] CPT-59937 Ear Wash 16:12:47 [employer] CPT-OV Office Visit 11:12:01 CDT CPT-OV Office Visit 15:30:23 CDT CPT-86521 Sono pelvis non OB uterus ovaries cervix 15:50:44 CDT CPT-79985 Hand comp min 3V 16:42:32 CDT CPT-33339 Abd compl w upright 12:17:01 CDT CPT-19141 Nexplanon Placement 15:07:39 [employer] CPT-33121 Removal of IUD 15:07:39 [employer] CPT-50114 TB Tubersol 12:09:32 CDT CPT-40151 TB Tubersol 13:55:43 CDT
--- OUTSIDE RECORDS SUMMARY | 2020-03-03 08:29 | XMS REPORT | Clinical Summary ---
Author Author Admin, Diamante Marcelo Organization [employer] Address Unknown Phone Unavailable Allergies, Adverse Reactions, [...] implantable subdermal contraceptiv e Active Brii Russ THERAPEUTIC RADIOLOGIST Vaginal bleeding 623.8 Active Arie Casper MD Other specified noninflammatory disorders of vagina Influenza like illness 487.1 Active Jose Mcwilliams MD Influenza with other respiratory manifestations Sinusitis 473.9 Active Jessica Heaton THERAPEUTIC RADIOLOGIST Unspecified sinusitis (chronic) BREAST CANCER ICD-V16.3 Inactive [...] wice daily, if needed for cough DEXTROMETHORPHAN-GUAIFENESIN [id number] Active Jiborisina Florina CABRERA Active CEFDINIR 300 MG ORAL CAPSULE 1 po BID x 10 days CEFDINIR 26859427045 Active Jillina Fradeepl THERAPEUTIC RADIOLOGIST Active CHERATUSSIN AC 100-10 MG/5ML ORAL SYRUP 1 tsp by mouth every 4 hours as needed for cough GUAIFENESIN-CODEINE 37538897814 No Longe r Active Waynellina Florina CABRERA Active TAMIFLU 75 MG ORAL CAPSULE 1 po BID x 5 days 0 OSELTAMIVIR PHOSPHATE 54015417837 No Longer Active Jose Zhong MD Activ e ZITHROMAX Z-EMIL 250 MG ORAL TABLET 2 today, then 1 daily for 4 d ays AZITHROMYCIN 74381509417 No Longer Active Arie Casper MD Active PROTONIX 40 MG ORAL TABLET DELAYED RELEASE 1 po q a.m. PANTOPRAZOLE SODIUM 15819085224 No Longer Active Arie Casper MD Active BACTRIM DS 800-160 MG ORAL TABLET 1 tab by mouth twice daily 201 05/02/30 TRIMETHOPRIM-SULFAMETHOXAZOLE 44273846262 No Longer Active R [facility] Ty Active NEXPLANON IMPLANT right arm subcutaneously ETONOGESTREL IMPL 09217713386 No Longer Active Brii Russ APRN Active TUSSIONEX PENNKINETIC ER 10-8 MG/5ML ORAL SUSPENSION E XTENDED RELEASE 5ml po q12hr PRN Cough HYDROCOD POLST-CHLORPHEN POLST 5 9947499299 No Longer Active Brii Russ APRN Active CETIRIZINE HCL 10 MG ORAL TABLET 1 po qd PRN Allergies CETIRIZINE HCL 23060322727 No Longer Active Brii Russ APRN Activ e PREDNISONE 20 MG ORAL TABLET 2 tabs daily for 3 days, 1 tab daily for 3 days, 1/2 tab daily for 2 days PREDNISONE 39562319935 No Longer Active Arie Casper MD Active LOMOTIL 2.5-0.025 MG ORAL TABLET 1 tab po four times a day as needed for diarrhea DIPHENOXYLATE-ATROPINE 86642370677 No Lo nger Active Arie Casper MD Active ZOLOFT 50 MG ORAL TABLET 1 tablet by mouth daily 12/08 SERTRALINE HCL 33770099465 No Longer Active Arie Casper MD Ac tive NAPROXEN 500 MG ORAL TABLET Take 1 tab BID NAPR OXEN 23206839945 No Longer Active Arie Casper MD Active CEFDINIR 300 MG ORAL CAPSULE 1 po BID x 10 days CEFDINIR 57085681916 No Longer Active Brii Russ APRN Active PREDNISONE 20 MG ORAL TABLET 1 tablet daily for airway inflammat ion PREDNISONE 35186214413 No Longer Active Brii Russ APRN A ctive CEFDINIR 300 MG ORAL CAPSULE 1 po BID x 10 days CEFDINIR 85423224973 No Longer Active Jono Gagnon DO Active FLONASE 50 MCG/ACT NASAL SUSPENSION 1 spray each nostr il twice daily for allergies and runny nose until gone FLUT ICASONE PROPIONATE 17153328243 No Longer Active Jono Gagnon DO Active ALPRAZOLAM 0.25 MG ORAL TABLET 1 tablet by mouth every 8 hours as needed for stress ALPRAZOLAM 63299440323 No Longer Active Jono Gagnon DO Active ZITHROMAX Z-EMIL 250 MG ORAL TABLET 2 today, then 1 daily for 4 d ays AZITHROMYCIN 03124730614 No Longer Active Arie Casper MD Active PREDNISONE 20 MG ORAL TABLET 2 tabs daily for 3 days, 1 tab daily for 3 days, 1/2 tab daily for 2 days PREDNISONE 71947607874 No Longer Active Brii Russ APRN Active PREDNISONE 20 MG ORAL TABLET 1 tablet twice daily for 2 days, then 1 tablet once daily for 2 days PREDNISONE 78281111740 No Longer Active Brii Russ APRN Active PROMETHAZINE HCL 12.5 MG ORAL TABLET 1 tablet by mouth every 6 hours as needed for nausea/vomiting PROMETHAZINE HCL 07154280376 No L onger Active Jono Gagnon DO Active CITRATE OF MAGNESIA ORAL SOLUTION 1 bottle today for constipatio n MAGNESIUM CITRATE 94264133745 No Longer Active Jono Gagnon DO Active ZOFRAN 4 MG ORAL TABLET 1 TAB PO Q 6 HRS PRN NAUSEA 07/10/15 ONDANSETRON HCL 29363550158 No Longer Active Brii Russ APRN Acti ve LOMOTIL 2.5-0.025 MG ORAL TABLET 1 to 2 four times a day as needed for diarrhea DIPHENOXYLATE-ATROPINE 52917239741 No Longer Active January Russ APRN Active AMOXICILLIN 500 MG ORAL TABLET 2 tabs twice a day for 10 days 07/09/11 AMOXICILLIN 63760851206 No Longer Active Brii Russ APRN Active CYCLOBENZAPRINE HCL 10 MG ORAL TABLET 1/2 - 1 tablet b y mouth three times daily as needed for muscle spasm/pain CYCLOBENZAPRINE HCL 34198709660 No Longer Active Arie Casper MD Active LOMOTIL 2.5-0.025 MG ORAL TABLET 1 to 2 four times a day as needed for diarrhea DIPHENOXYLATE-ATROPINE 34160384178 No Longer Active Fozia Casper MD Active MACROBID 100 MG ORAL CAPSULE 1 cap by mouth twice daily NITROFURANTOIN MONOHYD MACRO 82858926121 No Longer Active Arie Casper MD Active ZYRTEC ALLERGY 10 MG ORAL CAPSULE 1 po qd CE TIRIZINE HCL 62890281957 No Longer Active Arie Casper MD Active AZITHROMYCIN 250 MG ORAL TABLET 2 po qd x 1 day, then 1 po q d x 4 days AZITHROMYCIN 29533610334 No Longer Active Jessica salgado THERAPEUTIC RADIOLOGIST Active PREDNISONE 20 MG ORAL TABLET 2 tabs daily for 3 days, 1 tab daily for 3 days, 1/2 tab daily for 2 days PREDNISONE 28690304750 No Longer Active Jessica Heaton THERAPEUTIC RADIOLOGIST Active PROMETHAZINE HCL 25 MG ORAL TABLET 1 four times a day as nee ded for vomiting PROMETHAZINE HCL 16590620692 No Longer Active Myrna Roberto MD Active BACTRIM DS 800-160 MG ORAL TABLET 1 twice a day 05/30 SULFAMETHOXAZOLE-TRIMETHOPRIM 85476432831 No Longer Active Myrna Roberto MD Active VICKS DAYQUIL SEVERE COLD/FLU TABLET 1 tab every 6 hours prn 201 02/22/17 [id number] TABS 57155755075 No Longer Active Chris Roberto MD Active GUAIFENESIN-CODEINE 100-10 MG/5ML ORAL SYRUP 2 tsp every 6 hours prn GUAIFENESIN-CODEINE 07774600931 No Longer Active Myrna Roberto MD Active NAPROXEN 500 MG ORAL TABLET one tab PO BID NAPR OXEN 51744951888 No Longer Active Myrna Roberto MD Active AUGMENTIN 875-125 MG ORAL TABLET 1 tab by mouth twice daily with food AMOXICILLIN-POT CLAVULANATE 30393828230 No Longer Act zaid Liliana Estrada MD PhD Active AMOXICILLIN 500 MG ORAL CAPSULE 1 tab by mouth 3 times daily 201 02/21/05 AMOXICILLIN 53162178776 No Longer Active Liliana Estrada MD PhD Active TESSALON PERLES 100 MG ORAL CAPSULE 1 tablet by mouth 3 times da cory BENZONATATE 52212601094 No Longer Active Liliana Estrada MD PhD Active FLAGYL 500 MG ORAL TABLET 1 tablet by mouth two times daily 2014 METRONIDAZOLE 24882552372 No Longer Active Nilam Doran tive ZITHROMAX 250 MG ORAL TABLET 2 po today, then 1 po q days 2-5 20 06/08/16 AZITHROMYCIN 78854812796 No Longer Active Arie Casper MD Active VITAMINS 0.8 MG ORAL TABLET take 1 tab po qday [id number] 07144635750 No Longer Active Arie Casper MD Active IBUPROFEN 800 MG ORAL TABLET take one po Q 8 hours 201 02/01/16 IBUPROFEN 68840322021 No Longer Active Arie Casper MD Acti ve [facility] TUSSIN COUGH/COLD CF 5-10-100 MG/5ML ORAL LIQUID 2 teasp oons every 4 hours [id number] 11631041101 No Longer Active Blaine Casper MD Active COMTREX COLD/COUGH DAY/NITE MS 5-2-10-325 MG ORAL 2 caps deja ry 4 hours [id number] 20371132056 No Longer Active Da aleksandra Casper MD Active CHLORASEPTIC MAX SORE THROAT 15-10 MG MOUTH/THROAT LOZENGE 1 every 2 hours prn BENZOCAINE-MENTHOL 63308377261 No Longer Active Arie Casper MD Active PREDNISONE 20 MG ORAL TABLET 2 tabs daily for 3 days, 1 tab daily for 3 days, 1/2 tab daily for 2 days PREDNISONE 98526229895 No Longer Active Jose Zhogn MD Active AZITHROMYCIN 250 MG ORAL TABLET 2 po qd x 1 day, then 1 po q d x 4 days AZITHROMYCIN 38872900680 No Longer Active Jose Mcwilliams MD Active ZOFRAN ODT 4 MG ORAL TABLET DISINTEGRATING 1 po q6hr PRN Nausea ONDANSETRON 44099939361 No Longer Active Rich Rosales MD Active ZOFRAN 4 MG ORAL TABLET 1 tablet every 4 hours ONDANSETRON HCL 07713878351 No Longer Active Rich Rosales MD Activ e MUCINEX 600 MG ORAL TABLET EXTENDED RELEASE 12 HOUR Ta ke 1-2 tablets every 12 hours GUAIFENESIN 46845156483 No Longer Active Rich Rosales MD Active BACTRIM 400-80 MG ORAL TABLET take one po BID SULFAMETHOXAZOLE-TRIMETHOPRIM 83375981923 No Longer Active Abelardo HERNANDEZ Active AZITHROMYCIN 500 MG ORAL TABLET 1 PO q day x 6 days 20 03/02/23 AZITHROMYCIN 86280695597 No Longer Active Tin HERNANDEZ Activ e ZITHROMAX 250 MG ORAL TABLET 2 po today, then 1 po q days 2-5 20 10/03/08 AZITHROMYCIN 17859250548 No Longer Active Arie Casper MD Active ZITHROMAX 250 MG ORAL TABLET 2 po today, then 1 po q days 2-5 20 09/23/25 AZITHROMYCIN 23222969827 No Longer Active Arie Casper MD Active AMOXICILLIN 500 MG ORAL CAPSULE 1 tab by mouth 3 times daily 201 11/24/09 AMOXICILLIN 17302068332 No Longer Active Arie Casper MD Active BACTRIM DS 800-160 MG ORAL TABLET 1 tab by mouth twice daily 201 11/03/14 TRIMETHOPRIM-SULFAMETHOXAZOLE 81158171178 No Longer Active Fozia Casper MD Active AMOXICILLIN 500 MG ORAL TABLET take 1 tab po TID 08/05 AMOXICILLIN 22466259504 No Longer Active Arie Casper MD Acti ve BACTRIM DS 800-160 MG ORAL TABLET 1 tab by mouth twice daily 201 11/03/14 BACTRIM DS 800-160 MG ORAL TABLET 128648 TRIMETHOPRIM-SULFAMETHOXAZOLE Inactive MUCINEX 600 MG ORAL TABLET EXTENDED RELEASE 12 HOUR Ta ke 1-2 tablets every 12 hours MUCINEX 600 MG ORAL TABLET EXTENDED RELEA SE 12 HOUR GUAIFENESIN Inactive ZOFRAN 4 MG ORAL TABLET 1 tablet every 4 hours ZOFRAN 4 MG ORAL TABLET 565820 ONDANSETRON HCL Inactive ZOFRAN ODT 4 MG ORAL TABLET DISINTEGRATING 1 po q6hr PRN Nausea ZOFRAN ODT 4 MG ORAL TABLET DISINTEGRATING 735630 ONDAN SETRON Inactive CHLORASEPTIC MAX SORE THROAT 15-10 MG MOUTH/THROAT LOZENGE 1 every 2 hours prn CHLORASEPTIC MAX SORE THROAT 15-10 MG MOUTH/THROAT LOZENGE BENZOCAINE-MENTHOL Inactive COMTREX COLD/COUGH DAY/NITE MS 5-2-10-325 MG ORAL 2 caps deja ry 4 hours COMTREX COLD/COUGH DAY/NITE MS 5-2-10-325 MG ORA L [id number] Inactive [facility] TUSSIN COUGH/COLD CF 5-10-100 MG/5ML ORAL LIQUID 2 teasp oons every 4 hours [facility] TUSSIN COUGH/COLD CF 5-10-100 MG/5ML ORAL LI QUID [id number] Inactive IBUPROFEN 800 MG ORAL TABLET take one po Q 8 hours 201 02/01/16 IBUPROFEN 800 MG ORAL TABLET 380654 IBUPROFEN Inactive VITAMINS 0.8 MG ORAL TABLET take 1 tab po qday VITAMINS 0.8 MG ORAL TABLET [id number] E-FA Inactive TESSALON PERLES 100 MG ORAL CAPSULE 1 tablet by mouth 3 times da cory TESSALON PERLES 100 MG ORAL CAPSULE 002613 BENZONATATE Inactive AMOXICILLIN 500 MG ORAL CAPSULE 1 tab by mouth 3 times daily 201 02/21/05 AMOXICILLIN 500 MG ORAL CAPSULE 025391 AMOXICILLIN Inactive GUAIFENESIN-CODEINE 100-10 MG/5ML ORAL SYRUP 2 tsp every 6 hours prn GUAIFENESIN-CODEINE 100-10 MG/5ML ORAL SYRUP 517626 GUAIFENESIN-CODEINE Inactive VICKS DAYQUIL SEVERE COLD/FLU TABLET 1 tab every 6 hours prn 201 02/22/17 VICKS DAYQUIL SEVERE COLD/FLU TABLET PHENYLEPHRI US-TR-GV-APAP TABS Inactive BACTRIM DS 800-160 MG ORAL TABLET 1 twice a day 05/30 BACTRIM DS 800-160 MG ORAL TABLET 170982 SULFAMETHOXAZOLE-TRIMETHOPRIM Inactiv e PROMETHAZINE HCL 25 MG ORAL TABLET 1 four times a day as nee ded for vomiting PROMETHAZINE HCL 25 MG ORAL TABLET 934148 PROMETHAZINE HCL Inactive ZYRTEC ALLERGY 10 MG ORAL CAPSULE 1 po qd ZYRTEC ALLERGY 10 MG ORAL CAPSULE CETIRIZINE HCL Inactive MACROBID 100 MG ORAL CAPSULE 1 cap by mouth twice daily MACROBID 100 MG ORAL CAPSULE 1222653 NITROFURANTOIN MONOHYD MACRO In active LOMOTIL 2.5-0.025 MG ORAL TABLET 1 to 2 four times a day as needed for diarrhea LOMOTIL 2.5-0.025 MG ORAL TABLET 4127478 DIPHENOXYLATE-ATROPINE Inactive CYCLOBENZAPRINE HCL 10 MG ORAL TABLET 1/2 - 1 tablet b y mouth three times daily as needed for muscle spasm/pain CYCLOBEN ZAPRINE HCL 10 MG ORAL TABLET 386356 CYCLOBENZAPRINE HCL Inactive AMOXICILLIN 500 MG ORAL TABLET 2 tabs twice a day for 10 days 20 07/09/11 AMOXICILLIN 500 MG ORAL TABLET 394104 AMOXICILLIN I nactive LOMOTIL 2.5-0.025 MG ORAL TABLET 1 to 2 four times a day as needed for diarrhea LOMOTIL 2.5-0.025 MG ORAL TABLET 0855348 DIPHENOXYLATE-ATROPINE Inactive ZOFRAN 4 MG ORAL TABLET 1 TAB PO Q 6 HRS PRN NAUSEA 20 07/10/15 ZOFRAN 4 MG ORAL TABLET 289904 ONDANSETRON HCL Inactive CITRATE OF MAGNESIA ORAL SOLUTION 1 bottle today for constipatio n CITRATE OF MAGNESIA ORAL SOLUTION 0310191 MAGNESIUM CITR ATE Inactive PROMETHAZINE HCL 12.5 MG ORAL TABLET 1 tablet by mouth every 6 hours as needed for nausea/vomiting PROMETHAZINE HCL 12.5 MG ORA L TABLET 083004 PROMETHAZINE HCL Inactive PREDNISONE 20 MG ORAL TABLET 1 tablet twice daily for 2 days, then 1 tablet once daily for 2 days PREDNISONE 20 MG ORAL TABLET 551963 PREDNISONE Inactive ALPRAZOLAM 0.25 MG ORAL TABLET 1 tablet by mouth every 8 hours as needed for stress ALPRAZOLAM 0.25 MG ORAL TABLET 052180 ALPRA ZOLAM Inactive FLONASE 50 MCG/ACT NASAL SUSPENSION 1 spray each nostr il twice daily for allergies and runny nose until gone FLON ASE 50 MCG/ACT NASAL SUSPENSION 3981367 FLUTICASONE PROPIONATE Inactive PREDNISONE 20 MG ORAL TABLET 1 tablet daily for airway inflammat ion PREDNISONE 20 MG ORAL TABLET 071789 PREDNISONE [place] ct[facility] NAPROXEN 500 MG ORAL TABLET Take 1 tab BID NAPROXEN 500 MG ORAL TABLET 227941 NAPROXEN Inactive ZOLOFT 50 MG ORAL TABLET 1 tablet by mouth daily 12/08 ZOLOFT 50 MG ORAL TABLET 336391 SERTRALINE HCL Inactive LOMOTIL 2.5-0.025 MG ORAL TABLET 1 tab po four times a day as needed for diarrhea LOMOTIL 2.5-0.025 MG ORAL TABLET 9046687 DIPHENOXYLATE-ATROPINE Inactive CETIRIZINE HCL 10 MG ORAL TABLET 1 po qd PRN Allergies CETIRIZINE HCL 10 MG ORAL TABLET 3934443 CETIRIZINE HCL Inactiv e TUSSIONEX PENNKINETIC ER 10-8 MG/5ML ORAL SUSPENSION E XTENDED RELEASE 5ml po q12hr PRN Cough TUSSIONEX PENNKINETI C ER 10-8 MG/5ML ORAL SUSPENSION EXTENDED RELEASE HYDROCOD POLST-CHLORPHEN POLST I nactive NEXPLANON IMPLANT right arm subcutaneously NEXPLANON IMPLANT ETONOGESTREL IMPL Inactive PROTONIX 40 MG ORAL TABLET DELAYED RELEASE 1 po q a.m. PROTONIX 40 MG ORAL TABLET DELAYED RELEASE 873618 PANTOPRAZOLE SODI UM Inactive CHERATUSSIN AC 100-10 MG/5ML ORAL SYRUP 1 tsp by mouth every 4 hours as needed for cough CHERATUSSIN AC 100-10 MG/5ML ORAL SYRUP 9 14012 GUAIFENESIN-CODEINE Inactive AMOXICILLIN 500 MG ORAL TABLET take 1 tab po TID 08/05 AMOXICILLIN 500 MG ORAL TABLET 384606 AMOXICILLIN Inactive AMOXICILLIN 500 MG ORAL CAPSULE 1 tab by mouth 3 times daily 201 11/24/09 AMOXICILLIN 500 MG ORAL CAPSULE 676811 AMOXICILLIN Inactive ZITHROMAX 250 MG ORAL TABLET 2 po today, then 1 po q days 2-5 20 09/23/25 ZITHROMAX 250 MG ORAL TABLET 043086 AZITHROMYCIN Arlen ctive ZITHROMAX 250 MG ORAL TABLET 2 po today, then 1 po q days 2-5 20 10/03/08 ZITHROMAX 250 MG ORAL TABLET 229146 AZITHROMYCIN [facility] ctive AZITHROMYCIN 500 MG ORAL TABLET 1 PO q day x 6 days 03/02/23 AZITHROMYCIN 500 MG ORAL TABLET 9963729 AZITHROMYCIN Inactive BACTRIM 400-80 MG ORAL TABLET take one po BID BACTRIM 400- 80 MG ORAL TABLET 311069 SULFAMETHOXAZOLE-TRIMETHOPRIM Inactive AZITHROMYCIN 250 MG ORAL TABLET 2 po qd x 1 day, then 1 po q d x 4 days AZITHROMYCIN 250 MG ORAL TABLET 409074 AZITHROMY ALLISON Inactive PREDNISONE 20 MG ORAL TABLET 2 tabs daily for 3 days, 1 tab daily for 3 days, 1/2 tab daily for 2 days PREDNISONE 20 MG ORAL T ABLET 740841 PREDNISONE Inactive ZITHROMAX 250 MG ORAL TABLET 2 po today, then 1 po q days 2-5 20 06/08/16 ZITHROMAX 250 MG ORAL TABLET 544391 AZITHROMYCIN [facility] ct[facility] FLAGYL 500 MG ORAL TABLET 1 tablet by mouth two times daily 2014 FLAGYL 500 MG ORAL TABLET 300413 METRONIDAZOLE Inacti ve AUGMENTIN 875-125 MG ORAL TABLET 1 tab by mouth twice daily with food AUGMENTIN 875-125 MG ORAL TABLET 213835 AMOXICIL ELSA-POT CLAVULANATE Inactive NAPROXEN 500 MG ORAL TABLET one tab PO BID NAPROXEN 500 MG ORAL TABLET 412267 NAPROXEN Inactive PREDNISONE 20 MG ORAL TABLET 2 tabs daily for 3 days, 1 tab daily for 3 days, 1/2 tab daily for 2 days PREDNISONE 20 MG ORAL T ABLET 015031 PREDNISONE Inactive AZITHROMYCIN 250 MG ORAL TABLET 2 po qd x 1 day, then 1 po q d x 4 days AZITHROMYCIN 250 MG ORAL TABLET 916714 AZITHROMY ALLISON Inactive PREDNISONE 20 MG ORAL TABLET 2 tabs daily for 3 days, 1 tab daily for 3 days, 1/2 tab daily for 2 days PREDNISONE 20 MG ORAL T ABLET 062075 PREDNISONE Inactive ZITHROMAX Z-EMIL 250 MG ORAL TABLET 2 today, then 1 daily for 4 d ays ZITHROMAX Z-EMIL 250 MG ORAL TABLET 148287 AZITHROMYCIN Inactive CEFDINIR 300 MG ORAL CAPSULE 1 po BID x 10 days 12/18 CEFDINIR 300 MG ORAL CAPSULE 490631 CEFDINIR Inactive CEFDINIR 300 MG ORAL CAPSULE 1 po BID x 10 days CEFDINIR 300 MG ORAL CAPSULE 238266 CEFDINIR Inactive PREDNISONE 20 MG ORAL TABLET 2 tabs daily for 3 days, 1 tab daily for 3 days, 1/2 tab daily for 2 days PREDNISONE 20 MG ORAL T ABLET 795864 PREDNISONE Inactive BACTRIM DS 800-160 MG ORAL TABLET 1 tab by mouth twice daily 201 05/02/30 BACTRIM DS 800-160 MG ORAL TABLET 641885 TRIMETHOPRIM-SULFAMETHOXAZOLE Inactive ZITHROMAX Z-EMIL 250 MG ORAL TABLET 2 today, then 1 daily for 4 d ays ZITHROMAX Z-EMIL 250 MG ORAL TABLET 542982 AZITHROMYCIN Inactive TAMIFLU 75 MG ORAL CAPSULE 1 po BID x 5 days 0 TAMIFLU 75 MG ORAL CAPSULE 817797 OSELTAMIVIR PHOSPHATE Inactive Advance Directives Directive Description [...] 5.0-8.5 Encounters Code Encounter Date Provider Facility CPT-82872 Level 3 Est. Patient 11:49:34 DISPOSAL OPERATOR Jessica boyd [facility] CPT-48541 Level 3 Est. Patient 14:55:50 DISPOSAL OPERATOR Jose Zhong MD [facility]-07573 Level 3 Est. Patient 10:21:41 DISPOSAL OPERATOR Arie mcqueen MD [facility] CPT-70064 Level 3 Est. Patient 11:35:15 DISPOSAL OPERATOR Arie mcqueen MD [facility] CPT-18582 Level 3 Est. Patient 15:40:28 CDT Brii Are [facility] CPT-22819 Level 3 Est. Patient 16:40:36 CDT Arie mcqueen MD [facility] CPT-93483 Level 4 Est. Patient 15:29:22 DISPOSAL OPERATOR Arie mcqueen MD [facility] CPT-79702 Level 3 Est. Patient 15:18:16 DISPOSAL OPERATOR Jono black DO [facility] CPT-60941 Level 4 Est. Patient 12:08:40 DISPOSAL OPERATOR Brii Are [facility] CPT-41686 Level 3 Est. Patient 09:24:42 CDT Brii Are [facility] CPT-74395 Level 3 Est. Patient 09:12:56 CDT Arie mcqueen MD [facility] CPT-47829 Level 3 Est. Patient 16:40:54 CDT Jose Zhong MD [facility] CPT-69489 Level 2 Est. Patient 13:01:13 CDT Brii Are ll THERAPEUTIC RADIOLOGIST [facility] CPT-74270 Level 3 Est. Patient 11:55:30 DISPOSAL OPERATOR Jono black DO [facility] CPT-28982 Level 3 Est. Patient 09:52:36 DISPOSAL OPERATOR Brii Are ll THERAPEUTIC RADIOLOGIST [facility] CPT-89344 Level 3 Est. Patient 16:25:33 DISPOSAL OPERATOR Rich Rosales MD [facility] CPT-39828 Level 3 Est. Patient 20:33:55 CDT Arie mcqueen MD [facility] CPT-95292 Level 3 Est. Patient 14:18:20 CDT Rich Rosales MD [facility] CPT-00639 Level 4 Est. Patient 09:34:31 CDT Arie mcqueen MD [facility] CPT-52605 Level 3 Est. Patient 09:08:55 DISPOSAL OPERATOR Liliana vincent MD PhD [facility] CPT-25931 Level 3 Est. Patient 16:44:07 DISPOSAL OPERATOR Arie mcqueen MD [facility] CPT-00175 Level 3 Est. Patient 10:44:27 CDT Arie mcqueen MD [facility] CPT-26592 Level 3 Est. Patient 08:55:41 CDT Jose Zhong MD [facility] CPT-78884 Level 3 Est. Patient 18:37:31 CDT Liliana vincent MD PhD [facility] CPT-84422 Level 3 Est. Patient 14:28:23 CDT Abelardo HERNANDEZ [facility] CPT-07160 Level 3 Est. Patient 15:18:13 DISPOSAL OPERATOR Arie mcqueen MD [facility] CPT-43604 Level 3 Est. Patient 10:11:29 DISPOSAL OPERATOR Arie mcqueen MD [facility] CPT-75661 Level 3 Est. Patient 10:55:57 DISPOSAL OPERATOR Jono black DO [facility] CPT-31910 Level 3 Est. Patient 17:29:05 CDT Arie mcqueen MD [facility] Procedures Code Procedure Name Date Entry Date Standard Desc ription CPT-90872 Nexplanon Removal 15:40:28 CDT CPT-97244 Sono transvag pelvis non OB uterus ovari es cervix - XRAY USE ONLY 08:58:14 DISPOSAL OPERATOR CPT-05317 UA w micro - LAB USE ONLY 16:04:56 DISPOSAL OPERATOR 2015 CPT-85282 Wet Prep/GEN - LAB USE ONLY 16:04:56 DISPOSAL OPERATOR 20 08/10/29 CPT-05345 First Vx - Ix admin via ID I M or jet injects without counseling by physician 16:57:10 CDT CPT-52092 Fluzone Preservative Free Intramuscular Suspension 16:57:10 CDT CPT-J0696 Rocephin 1000 mg (Ceftriaxone) 11:49:23 CDT CPT-J1040 Depo Medrol 80 mg (Methyl Prednisolone A cetate) 11:49:23 CDT CPT-J1100 Decadron 8mg (Dexamethasone) 11:49:23 CDT 2 CPT-61216 Abx/Therapy Injection 11:49:23 CDT CPT-73323 Abx/Therapy Injection 11:49:23 CDT CPT-29007 Abd compl w upright 09:07:26 DISPOSAL OPERATOR CPT-86428 Ear Wash 16:12:47 DISPOSAL OPERATOR CPT-OV Office Visit 11:12:01 CDT CPT-OV Office Visit 15:30:23 CDT CPT-79338 Sono pelvis non OB uterus ovaries cervix 15:50:44 CDT CPT-40091 Hand comp min 3V 16:42:32 CDT CPT-33601 Abd compl w upright 12:17:01 CDT CPT-30305 Nexplanon Placement 15:07:39 DISPOSAL OPERATOR CPT-11055 Removal of IUD 15:07:39 DISPOSAL OPERATOR CPT-25431 TB Tubersol 12:09:32 CDT CPT-81298 TB Tubersol 13:55:43 CDT
--- OUTSIDE RECORDS SUMMARY | 2020-03-03 08:29 | XMS REPORT | Clinical Summary ---
Author Author Admin, Diamante Marcelo Organization [employer] Address Unknown Phone Unavailable Allergies, Adverse Reactions, [...] MD Diarrhea Thumb pain, right 729.5 Resolved Joes Zhong MD Pain in limb Sinusitis, acute [...] cute pharyngitis Nausea 787.02 Active Brii Larson [employer] Nausea alone URI 465.9 Active Jono Gagnon DO Acu te upper respiratory infections of unspecified site Allergic rhinitis 477.9 Active Brii Christianson PRN Allergic rhinitis, cause unspecified Abdominal pain, right lower quadrant 789.03 Active Jose Zhong MD Abdominal pain, right lower quadrant Urinary frequency 788.41 Inactive Roseann Crawford Urinary frequency Urinary frequency 788.41 Active 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, [employer]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 Urinary frequency Sinusitis - acute 461.9 Active Brii Christianson PRN Acute sinusitis, unspecified Anxiety with depression 300.4 Active Glenn Larson [employer] Dysthymic disorder URI 465.9 Active oJno Gagnon DO Acu te upper respiratory infections of unspecified site Vaginal bleeding 623.8 Active Brii MARROQUIN RN Other specified noninflammatory disorders of vagina High risk sexual behavior V69.2 Active Arie Casper MD High-risk sexual behavior GERD 530.81 Active Arie Casper MD Esophageal reflux Encounter for surveillance of implantable subdermal contraceptiv e Active Brii Larson [employer] Vaginal bleeding 623.8 Active Arie Casper MD [...] 1 po q a.m. PANTOPRAZO LE SODIUM [id number] No Longer Active Arie Casper MD Active BACTRIM DS 800-160 MG TAB 1 tab by mouth twice daily 2 TRIMETHOPRIM-SULFAMETHOXAZOLE 88587605281 No Longer Active Roseann Crawford Active NEXPLANON IMPL right arm subcutaneously ETONOGE STREL IMPL 53873608797 No Longer Active Brii Larson APRN Active TUSSIONEX PENNKINETIC ER 10-8 MG/5ML LQCR 5ml po q12hr PRN Cough HYDROCOD POLST-CHLORPHEN POLST 54194421637 No Longer Active Brii Larson APRN Active CETIRIZINE HCL 10 MG ORAL TABS 1 po qd PRN Allergies 2 CETIRIZINE HCL 61832864241 No Longer Active Brii Larson APRN Ac tive PREDNISONE 20 MG TAB 2 tabs daily for 3 days, 1 t ab daily for 3 days, 1/2 tab daily for 2 days PREDNISONE 83694686463 No Longer Active Arie Casper MD Active LOMOTIL 2.5-0.025 MG TAB 1 tab po four times a day as needed for diarrhea DIPHENOXYLATE-ATROPINE 14835883566 No Longer Active Fozia Casper MD Active ZOLOFT 50 MG TAB 1 tablet by mouth daily SERTRA LINE HCL 37794723902 No Longer Active Arie Casper MD Active NAPROXEN 500 MG TAB Take 1 tab BID NAPROXEN 332 46088423 No Longer Active Arie Casper MD Active CEFDINIR 300 MG CAPS 1 po BID x 10 days CEFDINI R 15184534437 No Longer Active Brii Larson APRN Active PREDNISONE 20 MG TAB 1 tablet daily for airway inflammation 2015 PREDNISONE 65438213964 No Longer Active Brii Larson APRN Active CEFDINIR 300 MG CAPS 1 po BID x 10 days CEFDINI R 22974397801 No Longer Active Jono Gagnon DO Active FLONASE 50 MCG/ACT SUSP 1 spray each nostril twice d aily for allergies and runny nose until gone FLUTICASONE PROPIONATE No Longe r Active Jono Gagnon DO Active ALPRAZOLAM 0.25 MG TAB 1 tablet by mouth every 8 hours as ne eded for stress ALPRAZOLAM 67460049540 No Longer Active Jono Gagnon DO Active ZITHROMAX Z-EMIL 250 MG TABS 2 today, then 1 daily for 4 days 201 03/31/18 AZITHROMYCIN 82685802233 No Longer Active Arie Casper MD Active PREDNISONE 20 MG TAB 2 tabs daily for 3 days, 1 t ab daily for 3 days, 1/2 tab daily for 2 days PREDNISONE 97824524859 No Longer Active Brii Larson APRN Active PREDNISONE 20 MG TAB 1 tablet twice daily for 2 d ays, then 1 tablet once daily for 2 days PREDNISONE 04054959286 No Longer Active Brii Larson APRN Active PROMETHAZINE HCL 12.5 MG TABS 1 tablet by mouth every 6 hours as needed for nausea/vomiting PROMETHAZINE HCL 06027108344 No Longe r Active Jono Gagnon DO Active CITRATE OF MAGNESIA ORAL SOLN 1 bottle today for constipation 20 07/10/15 MAGNESIUM CITRATE 98535665173 No Longer Active Jono Gagnon DO Active ZOFRAN 4 MG ORAL TABS 1 TAB PO Q 6 HRS PRN NAUSEA 2014 ONDANSETRON HCL 08244115557 No Longer Active Brii Larson APRN A ctive LOMOTIL 2.5-0.025 MG TAB 1 to 2 four times a day as needed f or diarrhea DIPHENOXYLATE-ATROPINE 00342569558 No Longer Active January Larson APRN Active AMOXICILLIN 500 MG TABS 2 tabs twice a day for 10 days AMOXICILLIN 34722530179 No Longer Active Brii Larson APRN Acti ve CYCLOBENZAPRINE HCL 10 MG TABS 1/2 - 1 tablet by mouth three times daily as needed for muscle spasm/pain CYCLOBENZAPRINE HCL 93048467896 No Longer Active Arie Casper MD Active LOMOTIL 2.5-0.025 MG TABS 1 to 2 four times a day as needed for diarrhea DIPHENOXYLATE-ATROPINE 91113789990 No Longer Active Fozia Casper MD Active MACROBID 100 MG CAP 1 cap by mouth twice daily NITROFURANTOIN MONOHYD MACRO 15637928531 No Longer Active Arie Casper MD Active ZYRTEC ALLERGY 10 MG CAPS 1 po qd CETIRIZINE HCL 23366834888 No Longer Active Arie Casper MD Active AZITHROMYCIN 250 MG TABS 2 po qd x 1 day, then 1 po qd x 4 days AZITHROMYCIN 70009873563 No Longer Active Jillina Frazell [employer] Active PREDNISONE 20 MG TAB 2 tabs daily for 3 days, 1 t ab daily for 3 days, 1/2 tab daily for 2 days PREDNISONE 91955698324 No Longer Active Jillina Frazell [employer] Active PROMETHAZINE HCL 25 MG TABS 1 four times a day as needed for vomiting PROMETHAZINE HCL 83831556660 No Longer Active Myrna Roberto MD Active BACTRIM DS 800-160 MG TABS 1 twice a day SULFAMETHOXAZOLE-TRIMETHOPRIM 97527225180 No Longer Active Myrna Roberto MD Active VICKS DAYQUIL SEVERE COLD/FLU TABS 1 tab every 6 hours prn 12/10 [id number] TABS 70631965109 No Longer Active Myrna leigh MD Active GUAIFENESIN-CODEINE 100-10 MG/5ML ORAL SYRP 2 tsp every 6 hours prn GUAIFENESIN-CODEINE 88325082036 No Longer Active Myrna Roberto MD Active NAPROXEN 500 MG TAB one tab PO BID NAPROXEN 332 09584210 No Longer Active Myrna Roberto MD Active AUGMENTIN 875-125 MG TAB 1 tab by mouth twice daily with food 20 08/12/16 AMOXICILLIN-POT CLAVULANATE 88168342438 No Longer Active Liliana Estrada MD PhD Active AMOXICILLIN 500 MG CAP 1 tab by mouth 3 times daily 08/12/16 AMOXICILLIN 71585811434 No Longer Active Liliana Estrada MD PhD Acti ve TESSALON PERLES 100 MG CAP 1 tablet by mouth 3 times daily 11/01 BENZONATATE 97837652923 No Longer Active Liliana Estrada MD PhD Active FLAGYL 500 MG TAB 1 tablet by mouth two times daily 07/11/29 METRONIDAZOLE 32115919574 No Longer Active Nilam Gus Active ZITHROMAX 250 MG TAB 2 po today, then 1 po q days 2-5 AZITHROMYCIN 79330379621 No Longer Active Arie Casper MD Acti ve VITAMINS 0.8 MG TABS take 1 tab po qday 08/08 [id number] 69838170048 No Longer Active Arie Casper MD Active IBUPROFEN 800 MG TABS take one po Q 8 hours IBU PROFEN 77709030154 No Longer Active Arie Casper MD Active [facility] TUSSIN COUGH/COLD CF 5-10-100 MG/5ML LIQD 2 teaspoons ev eliud 4 hours [id number] 73969119902 No Longer Active Blaine Casper MD Active COMTREX COLD/COUGH DAY/NITE MS 5-2-10-325 MG MISC 2 caps deja ry 4 hours [id number] 18694383395 No Longer Active Landon Casper MD Active CHLORASEPTIC MAX SORE THROAT 15-10 MG LOZG 1 every 2 hours prn 2 BENZOCAINE-MENTHOL 73261540820 No Longer Active Arie Marcelo Active PREDNISONE 20 MG TAB 2 tabs daily for 3 days, 1 t ab daily for 3 days, 1/2 tab daily for 2 days PREDNISONE 39754717414 No Longer Active Jose Zhong MD Active AZITHROMYCIN 250 MG TABS 2 po qd x 1 day, then 1 po qd x 4 days AZITHROMYCIN 09266725292 No Longer Active Jose Zhong MD Active ZOFRAN ODT 4 MG TBDP 1 po q6hr PRN Nausea ONDAN SETRON 15782762384 No Longer Active Rich Rosales MD Active ZOFRAN 4 MG TABS 1 tablet every 4 hours ONDANSE JERRELL HCL 22864619732 No Longer Active Rich Rosales MD Active MUCINEX 600 MG [id number] Take 1-2 tablets every 12 hours GUAIFENESIN 32623796445 No Longer Active Rich Rosales MD Activ e BACTRIM 400-80 MG TABS take one po BID SULFAMETHOXAZOLE-TRIMETHOPRIM 91615191805 No Longer Active Abelardo HERNANDEZ Active AZITHROMYCIN 500 MG TABS 1 PO q day x 6 days AZ ITHROMYCIN 20447496938 No Longer Active Tin HERNANDEZ Active ZITHROMAX 250 MG TAB 2 po today, then 1 po q days 2-5 AZITHROMYCIN 76615736823 No Longer Active Arie Casper MD Acti ve ZITHROMAX 250 MG TAB 2 po today, then 1 po q days 2-5 AZITHROMYCIN 92522415224 No Longer Active Arie Casper MD Acti ve AMOXICILLIN 500 MG CAP 1 tab by mouth 3 times daily 20 09/23/20 AMOXICILLIN 00541224072 No Longer Active Arie Casper MD Acti ve BACTRIM DS 800-160 MG TAB 1 tab by mouth twice daily 2 TRIMETHOPRIM-SULFAMETHOXAZOLE 30141782926 No Longer Active Arie Casper MD Active AMOXICILLIN 500 MG TABS take 1 tab po TID AMOXI CILLIN 90460081258 No Longer Active Arie Casper MD Active BACTRIM DS 800-160 MG TAB 1 tab by mouth twice daily 2 BACTRIM DS 800-160 MG TAB 19821226 TRIMETHOPRIM-SULFAMETHOXAZOLE Inac tive MUCINEX 600 MG [id number]-ROR Take 1-2 tablets every 12 hours MUCINEX 600 MG [id number] GUAIFENESIN Inactive ZOFRAN 4 MG TABS 1 tablet every 4 hours ZOFRAN 4 MG TABS 768555 ONDANSETRON HCL Inactive ZOFRAN ODT 4 MG TBDP 1 po q6hr PRN Nausea ZOFRAN ODT 4 MG TBDP 138020 ONDANSETRON Inactive CHLORASEPTIC MAX SORE THROAT 15-10 MG LOZG 1 every 2 hours prn 2 /04/30 CHLORASEPTIC MAX SORE THROAT 15-10 MG LOZG BENZO ARINA-MENTHOL Inactive COMTREX COLD/COUGH DAY/NITE MS 5-2-10-325 MG MISC 2 caps deja ry 4 hours COMTREX COLD/COUGH DAY/NITE MS 5-2-10-325 MG MIS C [id number] Inactive [facility] TUSSIN COUGH/COLD CF 5-10-100 MG/5ML LIQD 2 teaspoons ev eliud 4 hours [facility] TUSSIN COUGH/COLD CF 5-10-100 MG/5ML LIQD [id number] Inactive IBUPROFEN 800 MG TABS take one po Q 8 hours IBUPROFEN 800 MG TABS IBUPROFEN Inactive VITAMINS 0.8 MG TABS take 1 tab po qday 08/08 VITAMINS 0.8 MG TABS [id number] Inactive TESSALON PERLES 100 MG CAP 1 tablet by mouth 3 times daily 11/01 TESSALON PERLES 100 MG CAP [id number] BENZONATATE Inact zaid AMOXICILLIN 500 MG CAP 1 tab by mouth 3 times daily 08/12/16 AMOXICILLIN 500 MG CAP 843140 AMOXICILLIN Inactive GUAIFENESIN-CODEINE 100-10 MG/5ML ORAL SYRP 2 tsp every 6 hours prn GUAIFENESIN-CODEINE 100-10 MG/5ML ORAL SYRP 952324 GUAIFENESIN-CODEINE Inactive VICKS DAYQUIL SEVERE COLD/FLU TABS 1 tab every 6 hours prn 12/10 VICKS DAYQUIL SEVERE COLD/FLU TABS PHENYLEPHRINE -DM-GG-APAP TABS Inactive BACTRIM DS 800-160 MG TABS 1 twice a day BACTRIM DS 800- 160 MG TABS 445158 SULFAMETHOXAZOLE-TRIMETHOPRIM Inactive PROMETHAZINE HCL 25 MG TABS 1 four times a day as needed for vomiting PROMETHAZINE HCL 25 MG TABS 350455 PROMETHAZINE HCL Inactive ZYRTEC ALLERGY 10 MG CAPS 1 po qd ZY RTEC ALLERGY 10 MG CAPS CETIRIZINE HCL Inactive MACROBID 100 MG CAP 1 cap by mouth twice daily MACROBID 100 MG CAP 2474897 NITROFURANTOIN MONOHYD MACRO Inactive LOMOTIL 2.5-0.025 MG TABS 1 to 2 four times a day as needed for diarrhea LOMOTIL 2.5-0.025 MG TABS 4494059 DIPHENOXYLATE-A TROPINE Inactive CYCLOBENZAPRINE HCL 10 MG TABS 1/2 - 1 tablet by mouth three times daily as needed for muscle spasm/pain CYCLOBENZAP RINE HCL 10 MG TABS 303787 CYCLOBENZAPRINE HCL Inactive AMOXICILLIN 500 MG TABS 2 tabs twice a day for 10 days AMOXICILLIN 500 MG TABS 916140 AMOXICILLIN Inactive LOMOTIL 2.5-0.025 MG TAB 1 to 2 four times a day as needed f or diarrhea LOMOTIL 2.5-0.025 MG TAB 0891668 DIPHENOXYLATE-AT ROPINE Inactive ZOFRAN 4 MG ORAL TABS 1 TAB PO Q 6 HRS PRN NAUSEA 2014 ZOFRAN 4 MG ORAL TABS 319333 ONDANSETRON HCL Inactive CITRATE OF MAGNESIA ORAL SOLN 1 bottle today for constipation 20 07/10/15 CITRATE OF MAGNESIA ORAL SOLN 0321541 MAGNESIUM CITRATE Inactive PROMETHAZINE HCL 12.5 MG TABS 1 tablet by mouth every 6 hours as needed for nausea/vomiting PROMETHAZINE HCL 12.5 MG TABS 293985 PROMETHAZINE HCL Inactive PREDNISONE 20 MG TAB 1 tablet twice daily for 2 d ays, then 1 tablet once daily for 2 days PREDNISONE 20 MG TAB 715900 PREDNISONE Inac tive ALPRAZOLAM 0.25 MG TAB 1 tablet by mouth every 8 hours as ne eded for stress ALPRAZOLAM 0.25 MG TAB 998055 ALPRAZOLAM Inact zaid FLONASE 50 MCG/ACT SUSP 1 spray each nostril twice d aily for allergies and runny nose until gone FLONASE 50 MCG/ACT SUSP 0078761 FLUTICASONE PROPIONATE Inactive PREDNISONE 20 MG TAB 1 tablet daily for airway inflammation 2015 PREDNISONE 20 MG TAB 154440 PREDNISONE Inactive NAPROXEN 500 MG TAB Take 1 tab BID NAPROXEN 500 MG TAB 114015 NAPROXEN Inactive ZOLOFT 50 MG TAB 1 tablet by mouth daily ZOLOFT 50 MG TAB 252271 SERTRALINE HCL Inactive LOMOTIL 2.5-0.025 MG TAB 1 tab po four times a day as needed for diarrhea LOMOTIL 2.5-0.025 MG TAB 5194926 DIPHENOXYLATE-AT ROPINE Inactive CETIRIZINE HCL 10 MG ORAL TABS 1 po qd PRN Allergies 2 CETIRIZINE HCL 10 MG ORAL TABS 4971878 CETIRIZINE HCL Inactive TUSSIONEX PENNKINETIC ER 10-8 MG/5ML LQCR 5ml po q12hr PRN Cough TUSSIONEX PENNKINETIC ER 10-8 MG/5ML LQCR HYDROCOD POLST-CHLORPHEN POLST Inactive NEXPLANON IMPL right arm subcutaneously NEXPLANO N IMPL ETONOGESTREL IMPL Inactive PROTONIX 40 MG ORAL TBEC 1 po q a.m. PRO TONIX 40 MG ORAL TBEC 668202 PANTOPRAZOLE SODIUM Inactive AMOXICILLIN 500 MG TABS take 1 tab po TID AMOXICILLIN 500 MG TABS 137681 AMOXICILLIN Inactive AMOXICILLIN 500 MG CAP 1 tab by mouth 3 times daily 09/23/20 AMOXICILLIN 500 MG CAP 365675 AMOXICILLIN Inactive ZITHROMAX 250 MG TAB 2 po today, then 1 po q days 2-5 ZITHROMAX 250 MG TAB 818174 AZITHROMYCIN Inactive ZITHROMAX 250 MG TAB 2 po today, then 1 po q days 2-5 ZITHROMAX 250 MG TAB 024122 AZITHROMYCIN Inactive AZITHROMYCIN 500 MG TABS 1 PO q day x 6 days 3 AZITHROMYCIN 500 MG TABS 7593940 AZITHROMYCIN Inactive BACTRIM 400-80 MG TABS take one po BID BA CTRIM 400-80 MG TABS 512767 SULFAMETHOXAZOLE-TRIMETHOPRIM Inactive AZITHROMYCIN 250 MG TABS 2 po qd x 1 day, then 1 po qd x 4 days AZITHROMYCIN 250 MG TABS 531941 AZITHROMYCIN Inactiv e PREDNISONE 20 MG TAB 2 tabs daily for 3 days, 1 t ab daily for 3 days, 1/2 tab daily for 2 days PREDNISONE 20 MG TAB 193166 PREDNISON E Inactive ZITHROMAX 250 MG TAB 2 po today, then 1 po q days 2-5 ZITHROMAX 250 MG TAB 473521 AZITHROMYCIN Inactive FLAGYL 500 MG TAB 1 tablet by mouth two times daily 07/11/29 FLAGYL 500 MG TAB 345810 METRONIDAZOLE Inactive AUGMENTIN 875-125 MG TAB 1 tab by mouth twice daily with food 08/12/16 AUGMENTIN 875-125 MG TAB 182926 AMOXICILLIN-POT CLAVULA ANGELO Inactive NAPROXEN 500 MG TAB one tab PO BID NAPROXEN 500 MG TAB 528207 NAPROXEN Inactive PREDNISONE 20 MG TAB 2 tabs daily for 3 days, 1 t ab daily for 3 days, 1/2 tab daily for 2 days PREDNISONE 20 MG TAB 085900 PREDNISON E Inactive AZITHROMYCIN 250 MG TABS 2 po qd x 1 day, then 1 po qd x 4 days AZITHROMYCIN 250 MG TABS 061411 AZITHROMYCIN Inactiv e PREDNISONE 20 MG TAB 2 tabs daily for 3 days, 1 t ab daily for 3 days, 1/2 tab daily for 2 days PREDNISONE 20 MG TAB 170538 PREDNISON E Inactive ZITHROMAX Z-EMIL 250 MG TABS 2 today, then 1 daily for 4 days 201 03/31/18 ZITHROMAX Z-EMIL 250 MG TABS 097705 AZITHROMYCIN Inac tive CEFDINIR 300 MG CAPS 1 po BID x 10 days C EFDINIR 300 MG CAPS 20030127 CEFDINIR Inactive CEFDINIR 300 MG CAPS 1 po BID x 10 days C EFDINIR 300 MG CAPS 151265 CEFDINIR Inactive PREDNISONE 20 MG TAB 2 tabs daily for 3 days, 1 t ab daily for 3 days, 1/2 tab daily for 2 days PREDNISONE 20 MG TAB 321729 PREDNISON E Inactive BACTRIM DS 800-160 MG TAB 1 tab by mouth twice daily 2 BACTRIM DS 800-160 MG TAB 403881 TRIMETHOPRIM-SULFAMETHOXAZOLE Inac tive Advance Directives Directive Description [...] Description Lab Report: CBC, [place] [facility] [place], blood 7.8 10^3/MM^3 [...] 263 10^3/MM^3 10*3/mm3 142-424 Lab Report: Chlamydia/GC [facility]/[id number] - Lab chlamydia DNA probe NOT DETECTED NOT DETECTED Lab Report: Chlamydia/GC [facility]/[id number] - Microbiology Neisseria gonorrhoeae DNA probe NOT [...] 5.0-8.5 Encounters Code Encounter Date Provider Facility CPT-18334 Level 3 Est. Patient 11:35:15 [employer] SALES REPRESENTATIVE Arie mcqueen MD [facility] CPT-02698 Level 3 Est. Patient 15:40:28 CDT Brii And melinaon [employer] [facility]-74016 Level 3 Est. Patient 16:40:36 CDT Arie mcqueen MD [facility]-55537 Level 4 Est. Patient 15:29:22 BILINGUAL SALES REPRESENTATIVE Arie mcqueen MD [facility] CPT-00220 Level 3 Est. Patient 15:18:16 BILINGUAL SALES REPRESENTATIVE Jono black [facility]-02015 Level 4 Est. Patient 12:08:40 BILINGUAL SALES REPRESENTATIVE Steve [facility]-84403 Level 3 Est. Patient 09:24:42 CDT Brii And erson [facility] CPT-93898 Level 3 Est. Patient 09:12:56 CDT Arie mcqueen MD [facility]-40447 Level 3 Est. Patient 16:40:54 CDT Jose Zhong MD [facility] CPT-31592 Level 2 Est. Patient 13:01:13 CDT Bladeon [facility]-94724 Level 3 Est. Patient 11:55:30 BILINGUAL SALES REPRESENTATIVE Jono black [facility]-44825 Level 3 Est. Patient 09:52:36 BILINGUAL SALES REPRESENTATIVE Steve [employer] [facility] CPT-88343 Level 3 Est. Patient 16:25:33 BILINGUAL SALES REPRESENTATIVE Rich Rosales MD [facility] CPT-27391 Level 3 Est. Patient 20:33:55 CDT Arie mcqueen MD [facility] CPT-26604 Level 3 Est. Patient 14:18:20 CDT Rich Rosales MD [facility] CPT-69583 Level 4 Est. Patient 09:34:31 CDT Arie mcqueen MD [facility] CPT-76383 Level 3 Est. Patient 09:08:55 BILINGUAL SALES REPRESENTATIVE Liliana vincent MD [facility] CPT-96609 Level 3 Est. Patient 16:44:07 BILINGUAL SALES REPRESENTATIVE Arie mcqueen MD [facility] CPT-73959 Level 3 Est. Patient 10:44:27 CDT Arie mcqueen MD [facility] CPT-13401 Level 3 Est. Patient 08:55:41 CDT Jose Zhong MD [facility] CPT-72194 Level 3 Est. Patient 18:37:31 CDT Liliana vincent MD [facility] CPT-44370 Level 3 Est. Patient 14:28:23 CDT Abelardo HERNANDEZ [facility] CPT-17525 Level 3 Est. Patient 15:18:13 BILINGUAL SALES REPRESENTATIVE Arie mcqueen MD [facility] CPT-99946 Level 3 Est. Patient 10:11:29 BILINGUAL SALES REPRESENTATIVE Arie mcqueen MD [facility] CPT-34383 Level 3 Est. Patient 10:55:57 BILINGUAL SALES REPRESENTATIVE Jono black DO [facility] CPT-02064 Level 3 Est. Patient 17:29:05 CDT Arie mcqueen MD [facility] Procedures Code Procedure Name Date Entry Date Standard Desc ription CPT-63313 Nexplanon Removal 15:40:28 CDT CPT-39945 Sono transvag pelvis non OB uterus ovari es cervix - XRAY USE ONLY 08:58:14 B[employer]INGUAL SALES REPRESENTATIVE CPT-59973 UA w micro - LAB USE ONLY 16:04:56 BILINGUAL SALES REPRESENTATIVE 2015 CPT-94095 Wet Prep/GEN - LAB USE ONLY 16:04:56 BILINGUAL SALES REPRESENTATIVE 20 08/10/29 CPT-45562 First Vx - Ix admin via ID I M or jet injects without counseling by physician 16:57:10 CDT CPT-48884 Fluzone Preservative Free Intramuscular Suspension 16:57:10 CDT CPT-J0696 Rocephin 1000 mg (Ceftriaxone) 11:49:23 CDT CPT-J1040 Depo Medrol 80 mg (Methyl Prednisolone A cetate) 11:49:23 CDT CPT-J1100 Decadron 8mg (Dexamethasone) 11:49:23 CDT 2 CPT-93057 Abx/Therapy Injection 11:49:23 CDT CPT-86731 Abx/Therapy Injection 11:49:23 CDT CPT-49003 Abd compl w upright 09:07:26 BILINGUAL SALES REPRESENTATIVE CPT-63973 Ear Wash 16:12:47 BILINGUAL SALES REPRESENTATIVE CPT-OV Office Visit 11:12:01 CDT CPT-OV Office Visit 15:30:23 CDT CPT-29742 Sono pelvis non OB uterus ovaries cervix 15:50:44 CDT CPT-35358 Hand comp min 3V 16:42:32 CDT CPT-38302 Abd compl w upright 12:17:01 CDT CPT-06654 Nexplanon Placement 15:07:39 BILINGUAL SALES REPRESENTATIVE CPT-12892 Removal of IUD 15:07:39 BILINGUAL SALES REPRESENTATIVE CPT-74948 TB Tubersol 12:09:32 CDT CPT-77762 TB Tubersol 13:55:43 CDT
--- OUTSIDE RECORDS SUMMARY | 2020-03-03 08:30 | XMS REPORT | Clinical Summary ---
Author Author Admin, Diamante Marcelo Organization [facility] Address Unknown Phone Unavailable Allergies, Adverse Reactions, [...] site Abdominal pain 789.00 Active Brii Larson CURRICULUM AND INSTRUCTION DIRECTOR Abdominal pain, unspecified site Diarrhea 787.91 Resolved [...] examination following surgery, unspecified Constipation 564.00 Active Mynra Roberto MD Constipation, unspecified Bronchitis 490 Active [...] cute pharyngitis Nausea 787.02 Active Brii Larson CURRICULUM AND INSTRUCTION DIRECTOR Nausea alone URI 465.9 Active Jono Gagnon [...] Anxiety with depression 300.4 Active Glenn Larson CURRICULUM AND INSTRUCTION DIRECTOR Dysthymic disorder URI 465.9 Active Jono Gagnon [...] MG TAB Take 1 tab BID NAPROXEN 892035093 15 Active Brii Larson APRN Active NEXPLANON IMPL Left arm subcutaneously ETONOGES TREL IMPL 10615989535 Active Brii Larson APRN Active CEFDINIR 300 MG CAPS 1 po BID x 10 days CEFDINI R 80173077549 No Longer Active Brii Larson APRN Active PREDNISONE 20 MG TAB 1 tablet daily for airway inflammation 2015 PREDNISONE 67770657420 No Longer Active Brii Larson APRN Active CEFDINIR 300 MG CAPS 1 po BID x 10 days CEFDINI R 60610237938 No Longer Active Jono W Kalin DO Active FLONASE 50 MCG/ACT SUSP 1 spray each nostril twice d aily for allergies and runny nose until gone FLUTICASONE PROPIONATE No Longe r Active Jono Gagnon DO Active ALPRAZOLAM 0.25 MG TAB 1 tablet by mouth every 8 hours as ne eded for stress ALPRAZOLAM 73128976292 No Longer Active Jono Gagnon DO Active ZOLOFT 50 MG TAB 1 tablet by mouth daily SERTRA LINE HCL 76664773934 Active Arie Casper MD Active LOMOTIL 2.5-0.025 MG TAB 1 tab po four times a day as needed for diarrhea DIPHENOXYLATE-ATROPINE 21637214318 Active Brii Larson APRN Active ZITHROMAX Z-EMIL 250 MG TABS 2 today, then 1 daily for 4 days 201 03/31/18 AZITHROMYCIN 69943476074 No Longer Active Arie Casper MD Active PROTONIX 40 MG ORAL TBEC 1 po q a.m. PANTOPRAZO LE SODIUM 01524970263 Active Carline Ochoa RPT,RMA Active PREDNISONE 20 MG TAB 2 tabs daily for 3 days, 1 t ab daily for 3 days, 1/2 tab daily for 2 days PREDNISONE 87505120008 No Longer Active Brii Larson APRN Active PREDNISONE 20 MG TAB 1 tablet twice daily for 2 d ays, then 1 tablet once daily for 2 days PREDNISONE 54245747202 No Longer Active Brii Larson APRN Active PROMETHAZINE HCL 12.5 MG TABS 1 tablet by mouth every 6 hours as needed for nausea/vomiting PROMETHAZINE HCL 29096737247 No Longe r Active Jono Gagnon DO Active CITRATE OF MAGNESIA ORAL SOLN 1 bottle today for constipation 20 07/10/15 MAGNESIUM CITRATE 31928990126 No Longer Active Jono Gagnon DO Active ZOFRAN 4 MG ORAL TABS 1 TAB PO Q 6 HRS PRN NAUSEA 2014 ONDANSETRON HCL 81235389196 No Longer Active Brii Larson APRN A ctive LOMOTIL 2.5-0.025 MG TAB 1 to 2 four times a day as needed f or diarrhea DIPHENOXYLATE-ATROPINE 19676141926 No Longer Active January Larson APRN Active AMOXICILLIN 500 MG TABS 2 tabs twice a day for 10 days AMOXICILLIN 64733063803 No Longer Active Brii Larson APRN Acti ve CYCLOBENZAPRINE HCL 10 MG TABS 1/2 - 1 tablet by mouth three times daily as needed for muscle spasm/pain CYCLOBENZAPRINE HCL 86113903599 No Longer Active Arie Casper MD Active LOMOTIL 2.5-0.025 MG TABS 1 to 2 four times a day as needed for diarrhea DIPHENOXYLATE-ATROPINE 69662167711 No Longer Active D freddy Casper MD Active MACROBID 100 MG CAP 1 cap by mouth twice daily NITROFURANTOIN MONOHYD MACRO 77907287878 No Longer Active Arie Casper MD Active ZYRTEC ALLERGY 10 MG CAPS 1 po qd CETIRIZINE HCL 82192324694 No Longer Active Arie Casper MD Active AZITHROMYCIN 250 MG TABS 2 po qd x 1 day, then 1 po qd x 4 days AZITHROMYCIN 30010257710 No Longer Active Jillina Franaomi CARBERA Active PREDNISONE 20 MG TAB 2 tabs daily for 3 days, 1 t ab daily for 3 days, 1/2 tab daily for 2 days PREDNISONE 44331482695 No Longer Active Jillina Franaomi CABRERA Active PROMETHAZINE HCL 25 MG TABS 1 four times a day as needed for vomiting PROMETHAZINE HCL 79261627555 No Longer Active Myrna Roberto MD Active BACTRIM DS 800-160 MG TABS 1 twice a day SULFAMETHOXAZOLE-TRIMETHOPRIM 39948774714 No Longer Active Myrna Roberto MD Active VICKS DAYQUIL SEVERE COLD/FLU TABS 1 tab every 6 hours prn 12/10 [id number] TABS 76840198398 No Longer Active Myrna leigh MD Active GUAIFENESIN-CODEINE 100-10 MG/5ML ORAL SYRP 2 tsp every 6 hours prn GUAIFENESIN-CODEINE 97076355938 No Longer Active Myrna Roberto MD Active NAPROXEN 500 MG TAB one tab PO BID NAPROXEN 332 84001165 No Longer Active Myrna Roberto MD Active AUGMENTIN 875-125 MG TAB 1 tab by mouth twice daily with food 20 08/12/16 AMOXICILLIN-POT CLAVULANATE 59409605238 No Longer Active Liliana Estrada MD PhD Active AMOXICILLIN 500 MG CAP 1 tab by mouth 3 times daily 08/12/16 AMOXICILLIN 61797104337 No Longer Active Liliana Estrada MD PhD Acti ve TESSALON PERLES 100 MG CAP 1 tablet by mouth 3 times daily 11/01 BENZONATATE 30471236319 No Longer Active Liliana Estrada MD PhD Active FLAGYL 500 MG TAB 1 tablet by mouth two times daily 07/11/29 METRONIDAZOLE 24182133904 No Longer Active Nilam Weber Active ZITHROMAX 250 MG TAB 2 po today, then 1 po q days 2-5 AZITHROMYCIN 64888367024 No Longer Active Arie Casper MD Acti ve VITAMINS 0.8 MG TABS take 1 tab po qday 08/08 [id number] 12762730390 No Longer Active Arie Casper MD Active IBUPROFEN 800 MG TABS take one po Q 8 hours IBU PROFEN 93299611677 No Longer Active Arie Casper MD Active [facility] TUSSIN COUGH/COLD CF 5-10-100 MG/5ML LIQD 2 teaspoons ev eliud 4 hours [id number] 37278507811 No Longer Active Blaine Casper MD Active COMTREX COLD/COUGH DAY/NITE MS 5-2-10-325 MG MISC 2 caps deja ry 4 hours [id number] 46558691824 No Longer Active Da aleksandra Casper MD Active CHLORASEPTIC MAX SORE THROAT 15-10 MG LOZG 1 every 2 hours prn 2 BENZOCAINE-MENTHOL 26194359675 No Longer Active Arie Marcelo Active PREDNISONE 20 MG TAB 2 tabs daily for 3 days, 1 t ab daily for 3 days, 1/2 tab daily for 2 days PREDNISONE 95037573418 No Longer Active Jose Zhong MD Active AZITHROMYCIN 250 MG TABS 2 po qd x 1 day, then 1 po qd x 4 days AZITHROMYCIN 49863441964 No Longer Active Jose Zhong MD Active ZOFRAN ODT 4 MG TBDP 1 po q6hr PRN Nausea ONDAN SETRON 02239323629 No Longer Active Rich Rosales MD Active ZOFRAN 4 MG TABS 1 tablet every 4 hours ONDANSE JERRELL HCL 39992733754 No Longer Active Rich Rosales MD Active MUCINEX 600 MG [id number] Take 1-2 tablets every 12 hours GUAIFENESIN 91379328964 No Longer Active Rich Rosales MD Activ e BACTRIM 400-80 MG TABS take one po BID SULFAMETHOXAZOLE-TRIMETHOPRIM 22260342412 No Longer Active Abelardo HERNANDEZ Active AZITHROMYCIN 500 MG TABS 1 PO q day x 6 days AZ ITHROMYCIN 38522494638 No Longer Active Tin HERNANDEZ Active ZITHROMAX 250 MG TAB 2 po today, then 1 po q days 2-5 AZITHROMYCIN 22204677442 No Longer Active Arie Casper MD Acti ve ZITHROMAX 250 MG TAB 2 po today, then 1 po q days 2-5 AZITHROMYCIN 53038541234 No Longer Active Arie Casper MD Acti ve AMOXICILLIN 500 MG CAP 1 tab by mouth 3 times daily 20 09/23/20 AMOXICILLIN 26050242795 No Longer Active Arie Casper MD Acti ve BACTRIM DS 800-160 MG TAB 1 tab by mouth twice daily 2 TRIMETHOPRIM-SULFAMETHOXAZOLE 59106633648 No Longer Active Arie Casper MD Active AMOXICILLIN 500 MG TABS take 1 tab po TID AMOXI CILLIN 02606724604 No Longer Active Arie Casper MD Active BACTRIM DS 800-160 MG TAB 1 tab by mouth twice daily 2 BACTRIM DS 800-160 MG TAB 355308 TRIMETHOPRIM-SULFAMETHOXAZOLE Inac tive MUCINEX 600 MG [id number] Take 1-2 tablets every 12 hours MUCINEX 600 MG [id number] GUAIFENESIN Inactive ZOFRAN 4 MG TABS 1 tablet every 4 hours ZOFRAN 4 MG TABS 996183 ONDANSETRON HCL Inactive ZOFRAN ODT 4 MG TBDP 1 po q6hr PRN Nausea ZOFRAN ODT 4 MG TBDP 643646 ONDANSETRON Inactive CHLORASEPTIC MAX SORE THROAT 15-10 MG LOZG 1 every 2 hours prn 2 CHLORASEPTIC MAX SORE THROAT 15-10 MG LOZG BENZO ARINA-MENTHOL Inactive COMTREX COLD/COUGH DAY/NITE MS 5-2-10-325 MG MISC 2 caps deja ry 4 hours COMTREX COLD/COUGH DAY/NITE MS 5-2-10-325 MG MIS C [id number] Inactive [facility] TUSSIN COUGH/COLD CF 5-10-100 MG/5ML LIQD 2 teaspoons ev eliud 4 hours [facility] TUSSIN COUGH/COLD CF 5-10-100 MG/5ML LIQD [id number] Inactive IBUPROFEN 800 MG TABS take one po Q 8 hours IBUPROFEN 800 MG TABS IBUPROFEN Inactive VITAMINS 0.8 MG TABS take 1 tab po qday 08/08 VITAMINS 0.8 MG TABS [id number] Inactive TESSALON PERLES 100 MG CAP 1 tablet by mouth 3 times daily 11/01 TESSALON PERLES 100 MG CAP 337316 BENZONATATE Inact zaid AMOXICILLIN 500 MG CAP 1 tab by mouth 3 times daily 08/12/16 AMOXICILLIN 500 MG CAP 751080 AMOXICILLIN Inactive GUAIFENESIN-CODEINE 100-10 MG/5ML ORAL SYRP 2 tsp every 6 hours prn GUAIFENESIN-CODEINE 100-10 MG/5ML ORAL SYRP 267607 GUAIFENESIN-CODEINE Inactive VICKS DAYQUIL SEVERE COLD/FLU TABS 1 tab every 6 hours prn 12/10 VICKS DAYQUIL SEVERE COLD/FLU TABS PHENYLEPHRINE -DM-GG-APAP TABS Inactive BACTRIM DS 800-160 MG TABS 1 twice a day BACTRIM DS 800- 160 MG TABS 973375 SULFAMETHOXAZOLE-TRIMETHOPRIM Inactive PROMETHAZINE HCL 25 MG TABS 1 four times a day as needed for vomiting PROMETHAZINE HCL 25 MG TABS 851518 PROMETHAZINE HCL Inactive ZYRTEC ALLERGY 10 MG CAPS 1 po qd ZY RTEC ALLERGY 10 MG CAPS CETIRIZINE HCL Inactive MACROBID 100 MG CAP 1 cap by mouth twice daily MACROBID 100 MG CAP 2657985 NITROFURANTOIN MONOHYD MACRO Inactive LOMOTIL 2.5-0.025 MG TABS 1 to 2 four times a day as needed for diarrhea LOMOTIL 2.5-0.025 MG TABS 2352108 DIPHENOXYLATE-A TROPINE Inactive CYCLOBENZAPRINE HCL 10 MG TABS 1/2 - 1 tablet by mouth three times daily as needed for muscle spasm/pain CYCLOBENZAP RINE HCL 10 MG TABS 377793 CYCLOBENZAPRINE HCL Inactive AMOXICILLIN 500 MG TABS 2 tabs twice a day for 10 days AMOXICILLIN 500 MG TABS 597085 AMOXICILLIN Inactive LOMOTIL 2.5-0.025 MG TAB 1 to 2 four times a day as needed f or diarrhea LOMOTIL 2.5-0.025 MG TAB 4324984 DIPHENOXYLATE-AT ROPINE Inactive ZOFRAN 4 MG ORAL TABS 1 TAB PO Q 6 HRS PRN NAUSEA 2014 ZOFRAN 4 MG ORAL TABS 554522 ONDANSETRON HCL Inactive CITRATE OF MAGNESIA ORAL SOLN 1 bottle today for constipation 20 07/10/15 CITRATE OF MAGNESIA ORAL SOLN 1443141 MAGNESIUM CITRATE Inactive PROMETHAZINE HCL 12.5 MG TABS 1 tablet by mouth every 6 hours as needed for nausea/vomiting PROMETHAZINE HCL 12.5 MG TABS 909366 PROMETHAZINE HCL Inactive PREDNISONE 20 MG TAB 1 tablet twice daily for 2 d ays, then 1 tablet once daily for 2 days PREDNISONE 20 MG TAB 887756 PREDNISONE Inac tive ALPRAZOLAM 0.25 MG TAB 1 tablet by mouth every 8 hours as ne eded for stress ALPRAZOLAM 0.25 MG TAB 897530 ALPRAZOLAM Inact zaid FLONASE 50 MCG/ACT SUSP 1 spray each nostril twice d aily for allergies and runny nose until gone FLONASE 50 MCG/ACT SUSP F LUTICASONE PROPIONATE Inactive PREDNISONE 20 MG TAB 1 tablet daily for airway inflammation 2015 PREDNISONE 20 MG TAB 294305 PREDNISONE Inactive AMOXICILLIN 500 MG TABS take 1 tab po TID AMOXICILLIN 500 MG TABS 549177 AMOXICILLIN Inactive AMOXICILLIN 500 MG CAP 1 tab by mouth 3 times daily 09/23/20 AMOXICILLIN 500 MG CAP 402214 AMOXICILLIN Inactive ZITHROMAX 250 MG TAB 2 po today, then 1 po q days 2-5 ZITHROMAX 250 MG TAB 1729906 AZITHROMYCIN Inactive ZITHROMAX 250 MG TAB 2 po today, then 1 po q days 2-5 ZITHROMAX 250 MG TAB 2557374 AZITHROMYCIN Inactive AZITHROMYCIN 500 MG TABS 1 PO q day x 6 days 3 AZITHROMYCIN 500 MG TABS 4883035 AZITHROMYCIN Inactive BACTRIM 400-80 MG TABS take one po BID BA CTRIM 400-80 MG TABS 791187 SULFAMETHOXAZOLE-TRIMETHOPRIM Inactive AZITHROMYCIN 250 MG TABS 2 po qd x 1 day, then 1 po qd x 4 days AZITHROMYCIN 250 MG TABS 2673667 AZITHROMYCIN Inactiv e PREDNISONE 20 MG TAB 2 tabs daily for 3 days, 1 t ab daily for 3 days, 1/2 tab daily for 2 days PREDNISONE 20 MG TAB 479225 PREDNISON E Inactive ZITHROMAX 250 MG TAB 2 po today, then 1 po q days 2-5 ZITHROMAX 250 MG TAB 0044529 AZITHROMYCIN Inactive FLAGYL 500 MG TAB 1 tablet by mouth two times daily 07/11/29 FLAGYL 500 MG TAB 334781 METRONIDAZOLE Inactive AUGMENTIN 875-125 MG TAB 1 tab by mouth twice daily with food 20 08/12/16 AUGMENTIN 875-125 MG TAB 708376 AMOXICILLIN-POT CLAVULA ANGELO Inactive NAPROXEN 500 MG TAB one tab PO BID NAPROXEN 500 MG TAB 871976 NAPROXEN Inactive PREDNISONE 20 MG TAB 2 tabs daily for 3 days, 1 t ab daily for 3 days, 1/2 tab daily for 2 days PREDNISONE 20 MG TAB 826270 PREDNISON E Inactive AZITHROMYCIN 250 MG TABS 2 po qd x 1 day, then 1 po qd x 4 days AZITHROMYCIN 250 MG TABS 2505204 AZITHROMYCIN Inactiv e PREDNISONE 20 MG TAB 2 tabs daily for 3 days, 1 t ab daily for 3 days, 1/2 tab daily for 2 days PREDNISONE 20 MG TAB 055995 PREDNISON E Inactive ZITHROMAX Z-EMIL 250 MG TABS 2 today, then 1 daily for 4 days 201 03/31/18 ZITHROMAX Z-EMIL 250 MG TABS 5291163 AZITHROMYCIN Inac tive CEFDINIR 300 MG CAPS [...] Panel - Chemistry sodium, serum 136 mmol/L 830-441 6381/04/26 carbon dioxide, venous blood 29.9 mmol/L 21.0-32 [...] Negative Encounters Code Encounter Date Provider Facility CPT-37684 Level 4 Est. Patient 12:08:40 [employer]OOKER TENDER Steve CURRICULUM AND INSTRUCTION DIRECTOR [facility] CPT-93337 Level 3 Est. Patient 09:24:42 CDT Steve [facility] [place] CPT-28728 Level 3 Est. Patient 09:12:56 CDT Arie mcqueen MD [facility] CPT-17604 Level 3 Est. Patient 16:40:54 CDT Jose Zhong MD [facility] CPT-62875 Level 2 Est. Patient 13:01:13 CDT Steve [employer] INSTRUCTION DIRECTOR [facility] CPT-92593 Level 3 Est. Patient 11:55:30 COOKER TENDER Jono black DO [facility] CPT-07616 Level 3 Est. Patient 09:52:36 COOKER TENDER Steve CABRERA [facility] CPT-79538 Level 3 Est. Patient 16:25:33 COOKER TENDER Rich Rosales MD [facility] CPT-97171 Level 3 Est. Patient 20:33:55 CDT Arie mcqueen MD [facility] CPT-34432 Level 3 Est. Patient 14:18:20 CDT Rich Rosales MD [facility] CPT-27615 Level 4 Est. Patient 09:34:31 CDT Arie mcqueen MD [facility]-05537 Level 3 Est. Patient 09:08:55 COOKER TENDER Liliana vincent MD PhD [facility]-64364 Level 3 Est. Patient 16:44:07 COOKER TENDER Arie mcqueen MD [facility] CPT-55849 Level 3 Est. Patient 10:44:27 CDT Arie mcqueen MD [facility] CPT-52547 Level 3 Est. Patient 08:55:41 CDT Jose Zhong MD [facility] CPT-86230 Level 3 Est. Patient 18:37:31 CDT Liliana vincent MD PhD [facility] CPT-27172 Level 3 Est. Patient 14:28:23 CDT Abelardo HERNANDEZ [facility] CPT-90957 Level 3 Est. Patient 15:18:13 COOKER TENDER Arie mcqueen MD [facility] CPT-26318 Level 3 Est. Patient 10:11:29 COOKER TENDER Arie mcqueen MD [facility] CPT-83094 Level 3 Est. Patient 10:55:57 COOKER TENDER Jono black DO [facility] CPT-59135 Level 3 Est. Patient 17:29:05 CDT Arie mcqueen MD [facility] Procedures Code Procedure Name Date Entry Date Standard Desc ription CPT-32499 UA w micro - LAB USE ONLY 16:04:56 COOKER TENDER 2015 CPT-04207 Wet Prep/GEN - LAB USE ONLY 16:04:56 COOKER TENDER 20 08/10/29 CPT-15142 First Vx - Ix admin via ID I M or jet injects without counseling by physician 16:57:10 CDT CPT-29823 Fluzone Preservative Free Intramuscular Suspension 16:57:10 CDT CPT-J0696 Rocephin 1000 mg (Ceftriaxone) 11:49:23 CDT CPT-J1040 Depo Medrol 80 mg (Methyl Prednisolone A cetate) 11:49:23 CDT CPT-J1100 Decadron 8mg (Dexamethasone) 11:49:23 CDT 2 CPT-66624 Abx/Therapy Injection 11:49:23 CDT CPT-24672 Abx/Therapy Injection 11:49:23 CDT CPT-97776 Abd compl w upright 09:07:26 [employer]ER TENDER CPT-25474 Ear Wash 16:12:47 COOKER TENDER CPT-OV Office Visit 11:12:01 CDT CPT-OV Office Visit 15:30:23 CDT CPT-24706 Sono pelvis non OB uterus ovaries cervix 15:50:44 CDT CPT-77517 Hand comp min 3V 16:42:32 CDT CPT-06590 Abd compl w upright 12:17:01 CDT CPT-66970 Nexplanon Placement 15:07:39 COOKER TENDER CPT-95191 Removal of IUD 15:07:39 COOKER TENDER CPT-99390 TB Tubersol 12:09:32 CDT CPT-24521 TB Tubersol 13:55:43 CDT
--- OUTSIDE RECORDS SUMMARY | 2020-03-03 08:30 | XMS REPORT | Clinical Summary ---
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, [employer]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 Urinary frequency Sinusitis - acute 461.9 Active Brii Christianson PRN Acute sinusitis, unspecified Anxiety with depression 300.4 Active Glenn Larson RESERVATION CLERK Dysthymic disorder URI 465.9 Active Jono [...] po q12hr PRN Cough HYDROCOD POLST-CHLORPHEN POLST 42726344138 No Longer Active Brii Larson APRN Active CETIRIZINE HCL 10 MG ORAL TABS 1 po qd PRN Allergies 2 CETIRIZINE HCL 05242460700 No Longer Active Brii Larson APRN Ac tive PREDNISONE 20 MG TAB 2 tabs daily for 3 days, 1 t ab daily for 3 days, 1/2 tab daily for 2 days PREDNISONE 50838561377 No Longer Active Arie Casper MD Active NEXPLANON IMPL right arm subcutaneously ETONOGE STREL IMPL 12807615214 Active Arie Casper MD Active LOMOTIL 2.5-0.025 MG TAB 1 tab po four times a day as needed for diarrhea DIPHENOXYLATE-ATROPINE 34732190600 No Longer Active Mason Casper MD Active ZOLOFT 50 MG TAB 1 tablet by mouth daily SERTRA LINE HCL 97069822416 No Longer Active Arie Casper MD Active NAPROXEN 500 MG TAB Take 1 tab BID NAPROXEN 332 54002577 No Longer Active Arie Casper MD Active CEFDINIR 300 MG CAPS 1 po BID x 10 days CEFDINI R 29826805591 No Longer Active Brii Larson APRN Active PREDNISONE 20 MG TAB 1 tablet daily for airway inflammation 2015 PREDNISONE 91571309176 No Longer Active Brii Larson APRN Active CEFDINIR 300 MG CAPS 1 po BID x 10 days CEFDINI R 31627895388 No Longer Active Jono Gagnon DO Active FLONASE 50 MCG/ACT SUSP 1 spray each nostril twice d aily for allergies and runny nose until gone FLUTICASONE PROPIONATE No Longe r Active Jono Gagnon DO Active ALPRAZOLAM 0.25 MG TAB 1 tablet by mouth every 8 hours as ne eded for stress ALPRAZOLAM 89550562804 No Longer Active Jono Gagnon DO Active ZITHROMAX Z-EMIL 250 MG TABS 2 today, then 1 daily for 4 days 201 03/31/18 AZITHROMYCIN 21431364716 No Longer Active Arie Casper MD Active PROTONIX 40 MG ORAL TBEC 1 po q a.m. PANTOPRAZO LE SODIUM 85362532518 Active Arie Casper MD Active PREDNISONE 20 MG TAB 2 tabs daily for 3 days, 1 t ab daily for 3 days, 1/2 tab daily for 2 days PREDNISONE 22677730054 No Longer Active Brii Larson APRN Active PREDNISONE 20 MG TAB 1 tablet twice daily for 2 d ays, then 1 tablet once daily for 2 days PREDNISONE 79541489857 No Longer Active Brii Larson APRN Active PROMETHAZINE HCL 12.5 MG TABS 1 tablet by mouth every 6 hours as needed for nausea/vomiting PROMETHAZINE HCL 95753126276 No Longe r Active Jono Gagnon DO Active CITRATE OF MAGNESIA ORAL SOLN 1 bottle today for constipation 20 07/10/15 MAGNESIUM CITRATE 87411939775 No Longer Active Jono Gagnon DO Active ZOFRAN 4 MG ORAL TABS 1 TAB PO Q 6 HRS PRN NAUSEA 2014 ONDANSETRON HCL 62119148599 No Longer Active Brii Larson APRN A ctive LOMOTIL 2.5-0.025 MG TAB 1 to 2 four times a day as needed f or diarrhea DIPHENOXYLATE-ATROPINE 02757069822 No Longer Active January Larson APRN Active AMOXICILLIN 500 MG TABS 2 tabs twice a day for 10 days AMOXICILLIN 57313051827 No Longer Active Brii Larson APRN Acti ve CYCLOBENZAPRINE HCL 10 MG TABS 1/2 - 1 tablet by mouth three times daily as needed for muscle spasm/pain CYCLOBENZAPRINE HCL 71937309273 No Longer Active Arie Casper MD Active LOMOTIL 2.5-0.025 MG TABS 1 to 2 four times a day as needed for diarrhea DIPHENOXYLATE-ATROPINE 62276692701 No Longer Active Mason Casper MD Active MACROBID 100 MG CAP 1 cap by mouth twice daily NITROFURANTOIN MONOHYD MACRO 86802412307 No Longer Active Arie Casper MD Active ZYRTEC ALLERGY 10 MG CAPS 1 po qd CETIRIZINE HCL 28212791980 No Longer Active Arie Casper MD Active AZITHROMYCIN 250 MG TABS 2 po qd x 1 day, then 1 po qd x 4 days AZITHROMYCIN 77614908889 No Longer Active Jillina Frazell RESERVATION CLERK Active PREDNISONE 20 MG TAB 2 tabs daily for 3 days, 1 t ab daily for 3 days, 1/2 tab daily for 2 days PREDNISONE 44095669108 No Longer Active Jillina Frazell RESERVATION CLERK Active PROMETHAZINE HCL 25 MG TABS 1 four times a day as needed for vomiting PROMETHAZINE HCL 79812540340 No Longer Active Myrna Roberto MD Active BACTRIM DS 800-160 MG TABS 1 twice a day SULFAMETHOXAZOLE-TRIMETHOPRIM 84551829445 No Longer Active Myrna Roberto MD Active VICKS DAYQUIL SEVERE COLD/FLU TABS 1 tab every 6 hours prn 12/10 [id number] TABS 15905721249 No Longer Active Myrna leigh MD Active GUAIFENESIN-CODEINE 100-10 MG/5ML ORAL SYRP 2 tsp every 6 hours prn GUAIFENESIN-CODEINE 68441003556 No Longer Active Myrna Roberto MD Active NAPROXEN 500 MG TAB one tab PO BID NAPROXEN 332 13192684 No Longer Active Myrna Roberto MD Active AUGMENTIN 875-125 MG TAB 1 tab by mouth twice daily with food 08/12/16 AMOXICILLIN-POT CLAVULANATE 06938549206 No Longer Active Liliana Estrada MD PhD Active AMOXICILLIN 500 MG CAP 1 tab by mouth 3 times daily 08/12/16 AMOXICILLIN 22763526166 No Longer Active Liliana Estrada MD PhD Acti ve TESSALON PERLES 100 MG CAP 1 tablet by mouth 3 times daily 11/01 BENZONATATE 65041787663 No Longer Active Liliana Estrada MD PhD Active FLAGYL 500 MG TAB 1 tablet by mouth two times daily 20 07/11/29 METRONIDAZOLE 56710559699 No Longer Active Nilam Weber Active ZITHROMAX 250 MG TAB 2 po today, then 1 po q days 2-5 AZITHROMYCIN 84210367850 No Longer Active Arie Casper MD Acti ve VITAMINS 0.8 MG TABS take 1 tab po qday 08/08 [id number] 83993520278 No Longer Active Arie Casper MD Active IBUPROFEN 800 MG TABS take one po Q 8 hours IBU PROFEN 85786123733 No Longer Active Arie Casper MD Active [facility] TUSSIN COUGH/COLD CF 5-10-100 MG/5ML LIQD 2 teaspoons ev eliud 4 hours [id number] 06449058256 No Longer Active Blaine Casper MD Active COMTREX COLD/COUGH DAY/NITE MS 5-2-10-325 MG MISC 2 caps deja ry 4 hours [id number] 21364324792 No Longer Active Da vimason Casper MD Active CHLORASEPTIC MAX SORE THROAT 15-10 MG LOZG 1 every 2 hours prn 2 BENZOCAINE-MENTHOL 35149362550 No Longer Active Arie Marcelo Active PREDNISONE 20 MG TAB 2 tabs daily for 3 days, 1 t ab daily for 3 days, 1/2 tab daily for 2 days PREDNISONE 95469947289 No Longer Active Jose Zhong MD Active AZITHROMYCIN 250 MG TABS 2 po qd x 1 day, then 1 po qd x 4 days AZITHROMYCIN 63425529054 No Longer Active Jose Zhong MD Active ZOFRAN ODT 4 MG TBDP 1 po q6hr PRN Nausea ONDAN SETRON 21156052665 No Longer Active Rich Rosales MD Active ZOFRAN 4 MG TABS 1 tablet every 4 hours ONDANSE JERRELL HCL 39408560082 No Longer Active Rich Rosales MD Active MUCINEX 600 MG [id number] Take 1-2 tablets every 12 hours GUAIFENESIN 77881328621 No Longer Active Rich Rosales MD Activ e BACTRIM 400-80 MG TABS take one po BID SULFAMETHOXAZOLE-TRIMETHOPRIM 69832399186 No Longer Active Abelardo HERNANDEZ Active AZITHROMYCIN 500 MG TABS 1 PO q day x 6 days AZ ITHROMYCIN 21954304021 No Longer Active Tin HERNANDEZ Active ZITHROMAX 250 MG TAB 2 po today, then 1 po q days 2-5 AZITHROMYCIN 04892126133 No Longer Active Arie Casper MD Acti ve ZITHROMAX 250 MG TAB 2 po today, then 1 po q days 2-5 AZITHROMYCIN 41892220338 No Longer Active Arie Casper MD Acti ve AMOXICILLIN 500 MG CAP 1 tab by mouth 3 times daily 20 09/23/20 AMOXICILLIN 71625656305 No Longer Active Arie Casper MD Acti ve BACTRIM DS 800-160 MG TAB 1 tab by mouth twice daily 2 TRIMETHOPRIM-SULFAMETHOXAZOLE 96793133594 No Longer Active Arie Casper MD Active AMOXICILLIN 500 MG TABS take 1 tab po TID AMOXI CILLIN 96276042356 No Longer Active Arie Casper MD Active BACTRIM DS 800-160 MG TAB 1 tab by mouth twice daily 2 BACTRIM DS 800-160 MG TAB 660910 TRIMETHOPRIM-SULFAMETHOXAZOLE Inac tive MUCINEX 600 MG [id number] Take 1-2 tablets every 12 hours MUCINEX 600 MG [id number] GUAIFENESIN Inactive ZOFRAN 4 MG TABS 1 tablet every 4 hours ZOFRAN 4 MG TABS 926247 ONDANSETRON HCL Inactive ZOFRAN ODT 4 MG TBDP 1 po q6hr PRN Nausea ZOFRAN ODT 4 MG TBDP 665564 ONDANSETRON Inactive CHLORASEPTIC MAX SORE THROAT 15-10 MG LOZG 1 every 2 hours prn 2 CHLORASEPTIC MAX SORE THROAT 15-10 MG LOZG BENZO ARINA-MENTHOL Inactive COMTREX COLD/COUGH DAY/NITE MS 5-2-10-325 MG MISC 2 caps deja ry 4 hours COMTREX COLD/COUGH DAY/NITE MS 5-2-10-325 MG MIS C [id number]-APAP Inactive [facility] TUSSIN COUGH/COLD CF 5-10-100 MG/5ML LIQD 2 teaspoons ev eliud 4 hours [facility] TUSSIN COUGH/COLD CF 5-10-100 MG/5ML LIQD [id number] Inactive IBUPROFEN 800 MG TABS take one po Q 8 hours IBUPROFEN 800 MG TABS IBUPROFEN Inactive VITAMINS 0.8 MG TABS take 1 tab po qday 08/08 VITAMINS 0.8 MG TABS [id number] Inactive TESSALON PERLES 100 MG CAP 1 tablet by mouth 3 times daily 11/01 TESSALON PERLES 100 MG CAP 707237 BENZONATATE Inact zaid AMOXICILLIN 500 MG CAP 1 tab by mouth 3 times daily 08/12/16 AMOXICILLIN 500 MG CAP 064827 AMOXICILLIN Inactive GUAIFENESIN-CODEINE 100-10 MG/5ML ORAL SYRP 2 tsp every 6 hours prn GUAIFENESIN-CODEINE 100-10 MG/5ML ORAL SYRP 035387 GUAIFENESIN-CODEINE Inactive VICKS DAYQUIL SEVERE COLD/FLU TABS 1 tab every 6 hours prn 12/10 BEVERLY DAYQUIL SEVERE COLD/FLU TABS PHENYLEPHRINE -DM-GG-APAP TABS Inactive BACTRIM DS 800-160 MG TABS 1 twice a day BACTRIM DS 800- 160 MG TABS 459509 SULFAMETHOXAZOLE-TRIMETHOPRIM Inactive PROMETHAZINE HCL 25 MG TABS 1 four times a day as needed for vomiting PROMETHAZINE HCL 25 MG TABS 111153 PROMETHAZINE HCL Inactive ZYRTEC ALLERGY 10 MG CAPS 1 po qd ZY RTEC ALLERGY 10 MG CAPS CETIRIZINE HCL Inactive MACROBID 100 MG CAP 1 cap by mouth twice daily MACROBID 100 MG CAP 0217532 NITROFURANTOIN MONOHYD MACRO Inactive LOMOTIL 2.5-0.025 MG TABS 1 to 2 four times a day as needed for diarrhea LOMOTIL 2.5-0.025 MG TABS 9023459 DIPHENOXYLATE-A TROPINE Inactive CYCLOBENZAPRINE HCL 10 MG TABS 1/2 - 1 tablet by mouth three times daily as needed for muscle spasm/pain CYCLOBENZAP RINE HCL 10 MG TABS 685752 CYCLOBENZAPRINE HCL Inactive AMOXICILLIN 500 MG TABS 2 tabs twice a day for 10 days AMOXICILLIN 500 MG TABS 476368 AMOXICILLIN Inactive LOMOTIL 2.5-0.025 MG TAB 1 to 2 four times a day as needed f or diarrhea LOMOTIL 2.5-0.025 MG TAB 0500115 DIPHENOXYLATE-AT ROPINE Inactive ZOFRAN 4 MG ORAL TABS 1 TAB PO Q 6 HRS PRN NAUSEA 2014 ZOFRAN 4 MG ORAL TABS 743738 ONDANSETRON HCL Inactive CITRATE OF MAGNESIA ORAL SOLN 1 bottle today for constipation 20 07/10/15 CITRATE OF MAGNESIA ORAL SOLN 0203521 MAGNESIUM CITRATE Inactive PROMETHAZINE HCL 12.5 MG TABS 1 tablet by mouth every 6 hours as needed for nausea/vomiting PROMETHAZINE HCL 12.5 MG TABS 123513 PROMETHAZINE HCL Inactive PREDNISONE 20 MG TAB 1 tablet twice daily for 2 d ays, then 1 tablet once daily for 2 days PREDNISONE 20 MG TAB 898704 PREDNISONE Inac tive ALPRAZOLAM 0.25 MG TAB 1 tablet by mouth every 8 hours as ne eded for stress ALPRAZOLAM 0.25 MG TAB 591219 ALPRAZOLAM Inact zaid FLONASE 50 MCG/ACT SUSP 1 spray each nostril twice d aily for allergies and runny nose until gone FLONASE 50 MCG/ACT SUSP 8781077 FLUTICASONE PROPIONATE Inactive PREDNISONE 20 MG TAB 1 tablet daily for airway inflammation 2015 PREDNISONE 20 MG TAB 522607 PREDNISONE Inactive NAPROXEN 500 MG TAB Take 1 tab BID NAPROXEN 500 MG TAB 465391 NAPROXEN Inactive ZOLOFT 50 MG TAB 1 tablet by mouth daily ZOLOFT 50 MG TAB 453708 SERTRALINE HCL Inactive LOMOTIL 2.5-0.025 MG TAB 1 tab po four times a day as needed for diarrhea LOMOTIL 2.5-0.025 MG TAB 2093519 DIPHENOXYLATE-AT ROPINE Inactive CETIRIZINE HCL 10 MG ORAL TABS 1 po qd PRN Allergies 2 CETIRIZINE HCL 10 MG ORAL TABS 1389086 CETIRIZINE HCL Inactive TUSSIONEX PENNKINETIC ER 10-8 MG/5ML LQCR 5ml po q12hr PRN Cough TUSSIONEX PENNKINETIC ER 10-8 MG/5ML LQCR HYDROCOD POLST-CHLORPHEN POLST Inactive AMOXICILLIN 500 MG TABS take 1 tab po TID AMOXICILLIN 500 MG TABS 575886 AMOXICILLIN Inactive AMOXICILLIN 500 MG CAP 1 tab by mouth 3 times daily 09/23/20 AMOXICILLIN 500 MG CAP 636374 AMOXICILLIN Inactive ZITHROMAX 250 MG TAB 2 po today, then 1 po q days 2-5 ZITHROMAX 250 MG TAB 948832 AZITHROMYCIN Inactive ZITHROMAX 250 MG TAB 2 po today, then 1 po q days 2-5 ZITHROMAX 250 MG TAB 014077 AZITHROMYCIN Inactive AZITHROMYCIN 500 MG TABS 1 PO q day x 6 days 3 AZITHROMYCIN 500 MG TABS 6485530 AZITHROMYCIN Inactive BACTRIM 400-80 MG TABS take one po BID BA CTRIM 400-80 MG TABS 677722 SULFAMETHOXAZOLE-TRIMETHOPRIM Inactive AZITHROMYCIN 250 MG TABS 2 po qd x 1 day, then 1 po qd x 4 days AZITHROMYCIN 250 MG TABS 158196 AZITHROMYCIN Inactiv e PREDNISONE 20 MG TAB 2 tabs daily for 3 days, 1 t ab daily for 3 days, 1/2 tab daily for 2 days PREDNISONE 20 MG TAB 992835 PREDNISON E Inactive ZITHROMAX 250 MG TAB 2 po today, then 1 po q days 2-5 ZITHROMAX 250 MG TAB 167768 AZITHROMYCIN Inactive FLAGYL 500 MG TAB 1 tablet by mouth two times daily 07/11/29 FLAGYL 500 MG TAB 153231 METRONIDAZOLE Inactive AUGMENTIN 875-125 MG TAB 1 tab by mouth twice daily with food 20 08/12/16 AUGMENTIN 875-125 MG TAB 138001 AMOXICILLIN-POT CLAVULA ANGELO Inactive NAPROXEN 500 MG TAB one tab PO BID NAPROXEN 500 MG TAB 541467 NAPROXEN Inactive PREDNISONE 20 MG TAB 2 tabs daily for 3 days, 1 t ab daily for 3 days, 1/2 tab daily for 2 days PREDNISONE 20 MG TAB 412535 PREDNISON E Inactive AZITHROMYCIN 250 MG TABS 2 po qd x 1 day, then 1 po qd x 4 days AZITHROMYCIN 250 MG TABS 155402 AZITHROMYCIN Inactiv e PREDNISONE 20 MG TAB 2 tabs daily for 3 days, 1 t ab daily for 3 days, 1/2 tab daily for 2 days PREDNISONE 20 MG TAB 710016 PREDNISON E Inactive ZITHROMAX Z-EMIL 250 MG TABS 2 today, then 1 daily for 4 days 201 03/31/18 ZITHROMAX Z-EMIL 250 MG TABS 475424 AZITHROMYCIN Inac tive CEFDINIR 300 MG CAPS 1 po BID x 10 days C EFDINIR 300 MG CAPS 767969 CEFDINIR Inactive CEFDINIR 300 MG CAPS 1 po BID x 10 days C EFDINIR 300 MG CAPS 410014 CEFDINIR Inactive PREDNISONE 20 MG TAB 2 tabs daily for 3 days, 1 t ab daily for 3 days, 1/2 tab daily for 2 days PREDNISONE 20 MG TAB 936610 PREDNISON E Inactive Advance Directives Directive Description [...] Value Unit Range Description Lab Report: Chlamydia/GC APTIMA/[id number] - Lab chlamydia DNA probe NOT DETECTED NOT DETECTED Lab Report: Chlamydia/GC APTIMA/[id number] - Microbiology Neisseria gonorrhoeae DNA probe NOT [...] Negative Encounters Code Encounter Date Provider Facility CPT-51119 Level 3 Est. Patient 15:40:28 CDT Steve RESERVATION CLERK [facility] CPT-14972 Level 3 Est. Patient 16:40:36 CDT Arie mcqueen MD [facility] CPT-76387 Level 4 Est. Patient 15:29:22 MARKETING COMMUNICATIONS ASSOCIATE Arie mcqueen MD [facility] CPT-64196 Level 3 Est. Patient 15:18:16 MARKETING COMMUNICATIONS ASSOCIATE Jono black DO [facility] CPT-75247 Level 4 Est. Patient 12:08:40 MARKETING COMMUNICATIONS ASSOCIATE Steve CABRERA [facility] CPT-54957 Level 3 Est. Patient 09:24:42 CDT Steve CABRERA [facility] CPT-43373 Level 3 Est. Patient 09:12:56 CDT Arie mcqueen MD [facility] CPT-76851 Level 3 Est. Patient 16:40:54 CDT Jose Zhong MD [facility] CPT-39848 Level 2 Est. Patient 13:01:13 CDT Steve CABRERA [facility] CPT-56986 Level 3 Est. Patient 11:55:30 MARKETING COMMUNICATIONS ASSOCIATE Jono black DO [facility] CPT-73548 Level 3 Est. Patient 09:52:36 MARKETING COMMUNICATIONS ASSOCIATE Steve CABRERA [facility] CPT-15896 Level 3 Est. Patient 16:25:33 MARKETING COMMUNICATIONS ASSOCIATE Rich Rosales MD [facility] CPT-29844 Level 3 Est. Patient 20:33:55 CDT Arie mcqueen MD [facility] CPT-50891 Level 3 Est. Patient 14:18:20 CDT Rich Rosales MD [facility] CPT-37128 Level 4 Est. Patient 09:34:31 CDT Arie mcqueen MD [facility]-50437 Level 3 Est. Patient 09:08:55 MARKETING COMMUNICATIONS ASSOCIATE Liliana vincent MD PhD [facility] CPT-72316 Level 3 Est. Patient 16:44:07 MARKETING COMMUNICATIONS ASSOCIATE Arie mcqueen MD [facility] CPT-29757 Level 3 Est. Patient 10:44:27 CDT Arie mcqueen MD [facility] CPT-18837 Level 3 Est. Patient 08:55:41 CDT Jose Zohng MD [facility] CPT-00409 Level 3 Est. Patient 18:37:31 CDT Liliana vincent MD PhD [facility] CPT-74425 Level 3 Est. Patient 14:28:23 CDT Abelardo HERNANDEZ [facility] CPT-51812 Level 3 Est. Patient 15:18:13 MARKETING COMMUNICATIONS ASSOCIATE Arie mcqueen MD [facility] CPT-12588 Level 3 Est. Patient 10:11:29 MARKETING COMMUNICATIONS ASSOCIATE Arie mcqueen MD [facility] CPT-83916 Level 3 Est. Patient 10:55:57 MARKETING COMMUNICATIONS ASSOCIATE Jono black DO [facility] CPT-20326 Level 3 Est. Patient 17:29:05 CDT Arie mcqueen MD [facility] Procedures Code Procedure Name Date Entry Date Standard Desc ription CPT-60108 Nexplanon Removal 15:40:28 CDT CPT-34582 Sono transvag pelvis non OB uterus ovari es cervix - XRAY USE ONLY 08:58:14 MARKETING COMMUNICATIONS ASSOCIATE CPT-39128 UA w micro - LAB USE ONLY 16:04:56 MARKETING COMMUNICATIONS ASSOCIATE 2015 CPT-45799 Wet Prep/GEN - LAB USE ONLY 16:04:56 MARKETING COMMUNICATIONS ASSOCIATE 20 08/10/29 CPT-15059 First Vx - Ix admin via ID I M or jet injects without counseling by physician 16:57:10 CDT CPT-53806 Fluzone Preservative Free Intramuscular Suspension 16:57:10 CDT CPT-J0696 Rocephin 1000 mg (Ceftriaxone) 11:49:23 CDT CPT-J1040 Depo Medrol 80 mg (Methyl Prednisolone A cetate) 11:49:23 CDT CPT-J1100 Decadron 8mg (Dexamethasone) 11:49:23 CDT 2 CPT-95531 Abx/Therapy Injection 11:49:23 CDT CPT-64710 Abx/Therapy Injection 11:49:23 CDT CPT-59498 Abd compl w upright 09:07:26 MARKETING COMMUNICATIONS ASSOCIATE CPT-26869 Ear Wash 16:12:47 MARKETING COMMUNICATIONS ASSOCIATE CPT-OV Office Visit 11:12:01 CDT CPT-OV Office Visit 15:30:23 CDT CPT-67040 Sono pelvis non OB uterus ovaries cervix 15:50:44 CDT CPT-50236 Hand comp min 3V 16:42:32 CDT CPT-04572 Abd compl w upright 12:17:01 CDT CPT-72816 Nexplanon Placement 15:07:39 MARKETING COMMUNICATIONS ASSOCIATE CPT-03781 Removal of IUD 15:07:39 MARKETING COMMUNICATIONS ASSOCIATE CPT-54284 TB Tubersol 12:09:32 CDT CPT-29957 TB Tubersol 13:55:43 CDT
--- OUTSIDE RECORDS SUMMARY | 2020-03-03 08:31 | XMS REPORT | Clinical Summary ---
Author Author Admin, Diamante Marcelo Organization [facility] Address Unknown Phone Unavailable Allergies, [...] cute pharyngitis Nausea 787.02 Active Brii Larson PREFITTER Nausea alone URI 465.9 Active Jono Gagnon [...] Anxiety with depression 300.4 Active Glenn Larson PREFITTER Dysthymic disorder URI 465.9 Active Jono Gagnon [...] MG TAB Take 1 tab BID NAPROXEN 467343695 15 Active Brii Larson APRN Active NEXPLANON IMPL Left arm subcutaneously ETONOGES TREL IMPL 54211541931 Active Brii Larson APRN Active CEFDINIR 300 MG CAPS 1 po BID x 10 days CEFDINI R 85191954531 Active Brii Larson APRN Active PREDNISONE 20 MG TAB 1 tablet daily for airway inflammation 2015 PREDNISONE 13748706431 No Longer Active Brii Larson APRN Active CEFDINIR 300 MG CAPS 1 po BID x 10 days CEFDINI R 46351823238 No Longer Active Jono Gagnon DO Active FLONASE 50 MCG/ACT SUSP 1 spray each nostril twice d aily for allergies and runny nose until gone FLUTICASONE PROPIONATE No Longe r Active Jono Gagnon DO Active ALPRAZOLAM 0.25 MG TAB 1 tablet by mouth every 8 hours as ne eded for stress ALPRAZOLAM 71006173307 No Longer Active Jono Gagnon DO Active ZOLOFT 50 MG TAB 1 tablet by mouth daily SERTRA LINE HCL 91806713126 Active Arie Casper MD Active LOMOTIL 2.5-0.025 MG TAB 1 tab po four times a day as needed for diarrhea DIPHENOXYLATE-ATROPINE 97857878035 Active Brii Larson APRN Active ZITHROMAX Z-EMIL 250 MG TABS 2 today, then 1 daily for 4 days 201 03/31/18 AZITHROMYCIN 43543485891 No Longer Active Arie Casper MD Active PROTONIX 40 MG ORAL TBEC 1 po q a.m. PANTOPRAZO LE SODIUM 85950325334 Active Carline Ochoa RPT,RMA Active PREDNISONE 20 MG TAB 2 tabs daily for 3 days, 1 t ab daily for 3 days, 1/2 tab daily for 2 days PREDNISONE 29925956666 No Longer Active Brii Larson APRN Active PREDNISONE 20 MG TAB 1 tablet twice daily for 2 d ays, then 1 tablet once daily for 2 days PREDNISONE 37306580578 No Longer Active Brii Larson APRN Active PROMETHAZINE HCL 12.5 MG TABS 1 tablet by mouth every 6 hours as needed for nausea/vomiting PROMETHAZINE HCL 94552293055 No Longe r Active Jono Gagnon DO Active CITRATE OF MAGNESIA ORAL SOLN 1 bottle today for constipation 20 07/10/15 MAGNESIUM CITRATE 21245519374 No Longer Active Jono Gagnon DO Active ZOFRAN 4 MG ORAL TABS 1 TAB PO Q 6 HRS PRN NAUSEA 2014 ONDANSETRON HCL 03583828980 No Longer Active Brii Larson APRN A ctive LOMOTIL 2.5-0.025 MG TAB 1 to 2 four times a day as needed f or diarrhea DIPHENOXYLATE-ATROPINE 80200988656 No Longer Active January Larson APRN Active AMOXICILLIN 500 MG TABS 2 tabs twice a day for 10 days AMOXICILLIN 39401849193 No Longer Active Brii Larson APRN Acti ve CYCLOBENZAPRINE HCL 10 MG TABS 1/2 - 1 tablet by mouth three times daily as needed for muscle spasm/pain CYCLOBENZAPRINE HCL 08250712932 No Longer Active Arie Casper MD Active LOMOTIL 2.5-0.025 MG TABS 1 to 2 four times a day as needed for diarrhea DIPHENOXYLATE-ATROPINE 16206767954 No Longer Active D freddy Casper MD Active MACROBID 100 MG CAP 1 cap by mouth twice daily NITROFURANTOIN MONOHYD MACRO 57354409810 No Longer Active Arie Casper MD Active ZYRTEC ALLERGY 10 MG CAPS 1 po qd CETIRIZINE HCL 31709343070 No Longer Active Arie Casper MD Active AZITHROMYCIN 250 MG TABS 2 po qd x 1 day, then 1 po qd x 4 days AZITHROMYCIN 41445098178 No Longer Active Jillisael Heaton APRN Active PREDNISONE 20 MG TAB 2 tabs daily for 3 days, 1 t ab daily for 3 days, 1/2 tab daily for 2 days PREDNISONE 76551456062 No Longer Active Jillina Frazelanette CABRERA Active PROMETHAZINE HCL 25 MG TABS 1 four times a day as needed for vomiting PROMETHAZINE HCL 79360323407 No Longer Active Myrna Roberto MD Active BACTRIM DS 800-160 MG TABS 1 twice a day SULFAMETHOXAZOLE-TRIMETHOPRIM 96105892724 No Longer Active Myrna Roberto MD Active VICKS DAYQUIL SEVERE COLD/FLU TABS 1 tab every 6 hours prn 12/10 [id number] TABS 66157435424 No Longer Active Myrna leigh MD Active GUAIFENESIN-CODEINE 100-10 MG/5ML ORAL SYRP 2 tsp every 6 hours prn GUAIFENESIN-CODEINE 78559525396 No Longer Active Myrna Roberto MD Active NAPROXEN 500 MG TAB one tab PO BID NAPROXEN 332 31625279 No Longer Active Myrna Roberto MD Active AUGMENTIN 875-125 MG TAB 1 tab by mouth twice daily with food 20 08/12/16 AMOXICILLIN-POT CLAVULANATE 90291720844 No Longer Active Liliana Estrada MD PhD Active AMOXICILLIN 500 MG CAP 1 tab by mouth 3 times daily 08/12/16 AMOXICILLIN 09181177900 No Longer Active Liliana Estrada MD PhD Acti ve TESSALON PERLES 100 MG CAP 1 tablet by mouth 3 times daily 11/01 BENZONATATE 11789780086 No Longer Active Liliana Estrada MD PhD Active FLAGYL 500 MG TAB 1 tablet by mouth two times daily 07/11/29 METRONIDAZOLE 79606389807 No Longer Active Nilam Weber Active ZITHROMAX 250 MG TAB 2 po today, then 1 po q days 2-5 AZITHROMYCIN 92644741283 No Longer Active Arie Casper MD Acti ve VITAMINS 0.8 MG TABS take 1 tab po qday 08/08 [id number] 06981080740 No Longer Active Arie Casper MD Active IBUPROFEN 800 MG TABS take one po Q 8 hours IBU PROFEN 47379656786 No Longer Active Arie Casper MD Active [facility] TUSSIN COUGH/COLD CF 5-10-100 MG/5ML LIQD 2 teaspoons ev eliud 4 hours [id number] 31082640188 No Longer Active Blaine Casper MD Active COMTREX COLD/COUGH DAY/NITE MS 5-2-10-325 MG MISC 2 caps deja ry 4 hours [id number] 80181931568 No Longer Active Da aleksandra Casper MD Active CHLORASEPTIC MAX SORE THROAT 15-10 MG LOZG 1 every 2 hours prn 2 BENZOCAINE-MENTHOL 46166562858 No Longer Active Arie Marcelo Active PREDNISONE 20 MG TAB 2 tabs daily for 3 days, 1 t ab daily for 3 days, 1/2 tab daily for 2 days PREDNISONE 10252691944 No Longer Active Jose Zhong MD Active AZITHROMYCIN 250 MG TABS 2 po qd x 1 day, then 1 po qd x 4 days AZITHROMYCIN 36248166112 No Longer Active Jose Zhong MD Active ZOFRAN ODT 4 MG TBDP 1 po q6hr PRN Nausea ONDAN SETRON 60647717287 No Longer Active Rich Rosales MD Active ZOFRAN 4 MG TABS 1 tablet every 4 hours ONDANSE JERRELL HCL 06531669381 No Longer Active Rich Rosales MD Active MUCINEX 600 MG [id number] Take 1-2 tablets every 12 hours GUAIFENESIN 84498369546 No Longer Active iRch Rosales MD Activ e BACTRIM 400-80 MG TABS take one po BID SULFAMETHOXAZOLE-TRIMETHOPRIM 72568836924 No Longer Active Abelardo HERNANDEZ Active AZITHROMYCIN 500 MG TABS 1 PO q day x 6 days AZ ITHROMYCIN 95177783889 No Longer Active Tin HERNANDEZ Active ZITHROMAX 250 MG TAB 2 po today, then 1 po q days 2-5 AZITHROMYCIN 25282720450 No Longer Active Arie Casper MD Acti ve ZITHROMAX 250 MG TAB 2 po today, then 1 po q days 2-5 AZITHROMYCIN 67335956211 No Longer Active Arie Casper MD Acti ve AMOXICILLIN 500 MG CAP 1 tab by mouth 3 times daily 20 09/23/20 AMOXICILLIN 21594670456 No Longer Active Arie Casper MD Acti ve BACTRIM DS 800-160 MG TAB 1 tab by mouth twice daily 2 TRIMETHOPRIM-SULFAMETHOXAZOLE 24410564228 No Longer Active Arie Casper MD Active AMOXICILLIN 500 MG TABS take 1 tab po TID AMOXI CILLIN 32422037710 No Longer Active Arie Casper MD Active BACTRIM DS 800-160 MG TAB 1 tab by mouth twice daily 2 BACTRIM DS 800-160 MG TAB 985857 TRIMETHOPRIM-SULFAMETHOXAZOLE Inac tive MUCINEX 600 MG [id number] Take 1-2 tablets every 12 hours MUCINEX 600 MG [id number] GUAIFENESIN Inactive ZOFRAN 4 MG TABS 1 tablet every 4 hours ZOFRAN 4 MG TABS 175816 ONDANSETRON HCL Inactive ZOFRAN ODT 4 MG TBDP 1 po q6hr PRN Nausea ZOFRAN ODT 4 MG TBDP 947150 ONDANSETRON Inactive CHLORASEPTIC MAX SORE THROAT 15-10 MG LOZG 1 every 2 hours prn 2 CHLORASEPTIC MAX SORE THROAT 15-10 MG LOZG BENZO ARINA-MENTHOL Inactive COMTREX COLD/COUGH DAY/NITE MS 5-2-10-325 MG MISC 2 caps deja ry 4 hours COMTREX COLD/COUGH DAY/NITE MS 5-2-10-325 MG MIS C [id number] Inactive [facility] TUSSIN COUGH/COLD CF 5-10-100 MG/5ML LIQD 2 teaspoons ev eliud 4 hours [facility] TUSSIN COUGH/COLD CF 5-10-100 MG/5ML LIQD [id number] Inactive IBUPROFEN 800 MG TABS take one po Q 8 hours IBUPROFEN 800 MG TABS IBUPROFEN Inactive VITAMINS 0.8 MG TABS take 1 tab po qday 08/08 VITAMINS 0.8 MG TABS [id number] Inactive TESSALON PERLES 100 MG CAP 1 tablet by mouth 3 times daily 11/01 TESSALON PERLES 100 MG CAP 430483 BENZONATATE Inact zaid AMOXICILLIN 500 MG CAP 1 tab by mouth 3 times daily 08/12/16 AMOXICILLIN 500 MG CAP 803749 AMOXICILLIN Inactive GUAIFENESIN-CODEINE 100-10 MG/5ML ORAL SYRP 2 tsp every 6 hours prn GUAIFENESIN-CODEINE 100-10 MG/5ML ORAL SYRP 550493 GUAIFENESIN-CODEINE Inactive VICKS DAYQUIL SEVERE COLD/FLU TABS 1 tab every 6 hours prn 12/10 VICKS DAYQUIL SEVERE COLD/FLU TABS PHENYLEPHRINE -DM-GG-APAP TABS Inactive BACTRIM DS 800-160 MG TABS 1 twice a day BACTRIM DS 800- 160 MG TABS 055765 SULFAMETHOXAZOLE-TRIMETHOPRIM Inactive PROMETHAZINE HCL 25 MG TABS 1 four times a day as needed for vomiting PROMETHAZINE HCL 25 MG TABS 363403 PROMETHAZINE HCL Inactive ZYRTEC ALLERGY 10 MG CAPS 1 po qd ZY RTEC ALLERGY 10 MG CAPS CETIRIZINE HCL Inactive MACROBID 100 MG CAP 1 cap by mouth twice daily MACROBID 100 MG CAP 0144661 NITROFURANTOIN MONOHYD MACRO Inactive LOMOTIL 2.5-0.025 MG TABS 1 to 2 four times a day as needed for diarrhea LOMOTIL 2.5-0.025 MG TABS 9282038 DIPHENOXYLATE-A TROPINE Inactive CYCLOBENZAPRINE HCL 10 MG TABS 1/2 - 1 tablet by mouth three times daily as needed for muscle spasm/pain CYCLOBENZAP RINE HCL 10 MG TABS 909667 CYCLOBENZAPRINE HCL Inactive AMOXICILLIN 500 MG TABS 2 tabs twice a day for 10 days AMOXICILLIN 500 MG TABS 262204 AMOXICILLIN Inactive LOMOTIL 2.5-0.025 MG TAB 1 to 2 four times a day as needed f or diarrhea LOMOTIL 2.5-0.025 MG TAB 7499773 DIPHENOXYLATE-AT ROPINE Inactive ZOFRAN 4 MG ORAL TABS 1 TAB PO Q 6 HRS PRN NAUSEA 2014 ZOFRAN 4 MG ORAL TABS 308443 ONDANSETRON HCL Inactive CITRATE OF MAGNESIA ORAL SOLN 1 bottle today for constipation 20 07/10/15 CITRATE OF MAGNESIA ORAL SOLN 8666725 MAGNESIUM CITRATE Inactive PROMETHAZINE HCL 12.5 MG TABS 1 tablet by mouth every 6 hours as needed for nausea/vomiting PROMETHAZINE HCL 12.5 MG TABS 571723 PROMETHAZINE HCL Inactive PREDNISONE 20 MG TAB 1 tablet twice daily for 2 d ays, then 1 tablet once daily for 2 days PREDNISONE 20 MG TAB 302643 PREDNISONE Inac tive ALPRAZOLAM 0.25 MG TAB 1 tablet by mouth every 8 hours as ne eded for stress ALPRAZOLAM 0.25 MG TAB 795257 ALPRAZOLAM Inact zaid FLONASE 50 MCG/ACT SUSP 1 spray each nostril twice d aily for allergies and runny nose until gone FLONASE 50 MCG/ACT SUSP F LUTICASONE PROPIONATE Inactive PREDNISONE 20 MG TAB 1 tablet daily for airway inflammation 2015 PREDNISONE 20 MG TAB 661688 PREDNISONE Inactive AMOXICILLIN 500 MG TABS take 1 tab po TID AMOXICILLIN 500 MG TABS 430581 AMOXICILLIN Inactive AMOXICILLIN 500 MG CAP 1 tab by mouth 3 times daily 09/23/20 AMOXICILLIN 500 MG CAP 600009 AMOXICILLIN Inactive ZITHROMAX 250 MG TAB 2 po today, then 1 po q days 2-5 ZITHROMAX 250 MG TAB 7658940 AZITHROMYCIN Inactive ZITHROMAX 250 MG TAB 2 po today, then 1 po q days 2-5 ZITHROMAX 250 MG TAB 0572732 AZITHROMYCIN Inactive AZITHROMYCIN 500 MG TABS 1 PO q day x 6 days 3 AZITHROMYCIN 500 MG TABS 9954851 AZITHROMYCIN Inactive BACTRIM 400-80 MG TABS take one po BID BA CTRIM 400-80 MG TABS 334884 SULFAMETHOXAZOLE-TRIMETHOPRIM Inactive AZITHROMYCIN 250 MG TABS 2 po qd x 1 day, then 1 po qd x 4 days AZITHROMYCIN 250 MG TABS 5384769 AZITHROMYCIN Inactiv e PREDNISONE 20 MG TAB 2 tabs daily for 3 days, 1 t ab daily for 3 days, 1/2 tab daily for 2 days PREDNISONE 20 MG TAB 910476 PREDNISON E Inactive ZITHROMAX 250 MG TAB 2 po today, then 1 po q days 2-5 ZITHROMAX 250 MG TAB 5228734 AZITHROMYCIN Inactive FLAGYL 500 MG TAB 1 tablet by mouth two times daily 07/11/29 FLAGYL 500 MG TAB 096712 METRONIDAZOLE Inactive AUGMENTIN 875-125 MG TAB 1 tab by mouth twice daily with food 20 08/12/16 AUGMENTIN 875-125 MG TAB 047199 AMOXICILLIN-POT CLAVULA ANGELO Inactive NAPROXEN 500 MG TAB one tab PO BID NAPROXEN 500 MG TAB 243290 NAPROXEN Inactive PREDNISONE 20 MG TAB 2 tabs daily for 3 days, 1 t ab daily for 3 days, 1/2 tab daily for 2 days PREDNISONE 20 MG TAB 332515 PREDNISON E Inactive AZITHROMYCIN 250 MG TABS 2 po qd x 1 day, then 1 po qd x 4 days AZITHROMYCIN 250 MG TABS 4483734 AZITHROMYCIN Inactiv e PREDNISONE 20 MG TAB 2 tabs daily for 3 days, 1 t ab daily for 3 days, 1/2 tab daily for 2 days PREDNISONE 20 MG TAB 736769 PREDNISON E Inactive ZITHROMAX Z-EMIL 250 MG TABS 2 today, then 1 daily for 4 days 201 03/31/18 ZITHROMAX Z-EMIL 250 MG TABS 9250609 AZITHROMYCIN Inac tive CEFDINIR 300 MG CAPS 1 po BID x 10 days C EFDINIR 300 MG CAPS 886481 CEFDINIR Inactive Advance Directives Directive Description Start [...] Panel - Chemistry sodium, serum 136 mmol/L 746-030 2300/04/26 carbon dioxide, venous blood 29.9 mmol/L 21.0-32 [...] pH, urine, semiquantitative 7.0 5.0-8.5 [facility]/MICRO, AUTO - Chemistry protein, total urine random Negative mg/dL Negative RBC, urine, dipstick Trace Negative human chorionic gonadotropin , urine, qualitative (urine test) Negative Negative Lab Report: [facility], UADIP W/MICRO, AUTO - Urinalysis urine color [...] Negative Encounters Code Encounter Date Provider Facility CPT-06670 Level 3 Est. Patient 09:24:42 CDT Steve PREFITTER [facility]-07894 Level 3 Est. Patient 09:12:56 CDT Arie mcqueen MD [facility]-11688 Level 3 Est. Patient 16:40:54 CDT Jose Zhnog MD [facility] CPT-73033 Level 2 Est. Patient 13:01:13 CDT [facility] CPT-59075 Level 3 Est. Patient 11:55:30 BOX SPINNER Jono black DO [facility]-90247 Level 3 Est. Patient 09:52:36 BOX SPINNER Steve PREFITTER [facility] CPT-78536 Level 3 Est. Patient 16:25:33 BOX SPINNER Rich Rosales MD [facility] CPT-29601 Level 3 Est. Patient 20:33:55 CDT Arie mcqueen MD [facility] CPT-65744 Level 3 Est. Patient 14:18:20 CDT Rich Rosales MD [facility] CPT-67192 Level 4 Est. Patient 09:34:31 CDT Arie mcqueen MD [facility] CPT-39056 Level 3 Est. Patient 09:08:55 BOX SPINNER Liliana vincent MD PhD [facility]-73356 Level 3 Est. Patient 16:44:07 BOX SPINNER Arie mcqueen MD [facility] CPT-20467 Level 3 Est. Patient 10:44:27 CDT Arie mcqueen MD [facility] CPT-98253 Level 3 Est. Patient 08:55:41 CDT Jose Zhong MD [facility] CPT-34966 Level 3 Est. Patient 18:37:31 CDT Liliana vincent MD PhD [facility] CPT-59825 Level 3 Est. Patient 14:28:23 CDT Abelardo marroquin PA [facility] CPT-54448 Level 3 Est. Patient 15:18:13 BOX SPINNER Arie mcqueen MD [facility] CPT-39015 Level 3 Est. Patient 10:11:29 BOX SPINNER Arie mcqueen MD [facility] CPT-41856 Level 3 Est. Patient 10:55:57 BOX SPINNER Jono black DO [facility] CPT-82207 Level 3 Est. Patient 17:29:05 CDT Arie mcqueen MD [facility] Procedures Code Procedure Name Date Entry Date Standard Desc ription CPT-05887 UA w micro - LAB USE ONLY 16:04:56 BOX SPINNER 2015 CPT-86397 Wet Prep/GEN - LAB USE ONLY 16:04:56 BOX SPINNER 20 08/10/29 CPT-19011 First Vx - Ix admin via ID I M or jet injects without counseling by physician 16:57:10 CDT CPT-33008 Fluzone Preservative Free Intramuscular Suspension 16:57:10 CDT CPT-J0696 Rocephin 1000 mg (Ceftriaxone) 11:49:23 CDT CPT-J1040 Depo Medrol 80 mg (Methyl Prednisolone A cetate) 11:49:23 CDT CPT-J1100 Decadron 8mg (Dexamethasone) 11:49:23 CDT 2 CPT-79577 Abx/Therapy Injection 11:49:23 CDT CPT-01052 Abx/Therapy Injection 11:49:23 CDT CPT-11895 Abd compl w upright 09:07:26 BOX SPINNER CPT-28495 Ear Wash 16:12:47 BOX SPINNER CPT-OV Office Visit 11:12:01 CDT CPT-OV Office Visit 15:30:23 CDT CPT-88140 Sono pelvis non OB uterus ovaries cervix 15:50:44 CDT CPT-16580 Hand comp min 3V 16:42:32 CDT CPT-91551 Abd compl w upright 12:17:01 CDT CPT-29659 Nexplanon Placement 15:07:39 BOX SPINNER CPT-61141 Removal of IUD 15:07:39 BOX SPINNER CPT-94526 TB Tubersol 12:09:32 CDT CPT-71186 TB Tubersol 13:55:43 CDT
--- OUTSIDE RECORDS SUMMARY | 2020-03-03 08:31 | XMS REPORT | Clinical Summary ---
Author Author Admin, Diamante Marcelo Organization [employer] Address Unknown Phone Unavailable Allergies, Adverse Reactions, [...] on contraceptive management IUD removal V25.42 Resolved iLliana Estrada MD PhD Encounter for surveillance of [...] cute pharyngitis Nausea 787.02 Active Brii Larson [employer]ERTY WORKER Nausea alone URI 465.9 Active Jono [...] Anxiety with depression 300.4 Active Glenn Larson PROPERTY WORKER Dysthymic disorder URI 465.9 Active Jono [...] MG TAB Take 1 tab BID NAPROXEN 818861902 15 Active Brii Larson APRN Active NEXPLANON IMPL Left arm subcutaneously ETONOGES TREL IMPL 44467436994 Active Brii Larson APRN Active CEFDINIR 300 MG CAPS 1 po BID x 10 days CEFDINI R 68103961175 No Longer Active Brii Larson APRN Active PREDNISONE 20 MG TAB 1 tablet daily for airway inflammation 2015 PREDNISONE 79047256489 No Longer Active Brii Larson APRN Active CEFDINIR 300 MG CAPS 1 po BID x 10 days CEFDINI R 92203587414 No Longer Active Jono Gagnon DO Active FLONASE 50 MCG/ACT SUSP 1 spray each nostril twice d aily for allergies and runny nose until gone FLUTICASONE PROPIONATE No Longe r Active Jono Gagnon DO Active ALPRAZOLAM 0.25 MG TAB 1 tablet by mouth every 8 hours as ne eded for stress ALPRAZOLAM 14076077278 No Longer Active Jono Gagnon DO Active ZOLOFT 50 MG TAB 1 tablet by mouth daily SERTRA LINE HCL 74922935030 Active Arie Casper MD Active LOMOTIL 2.5-0.025 MG TAB 1 tab po four times a day as needed for diarrhea DIPHENOXYLATE-ATROPINE 59897994030 Active Brii Larosn APRN Active ZITHROMAX Z-EMIL 250 MG TABS 2 today, then 1 daily for 4 days 201 03/31/18 AZITHROMYCIN 85562522692 No Longer Active Arie Casper MD Active PROTONIX 40 MG ORAL TBEC 1 po q a.m. PANTOPRAZO LE SODIUM 18724737439 Active Arie Casper MD Active PREDNISONE 20 MG TAB 2 tabs daily for 3 days, 1 t ab daily for 3 days, 1/2 tab daily for 2 days PREDNISONE 25431827193 No Longer Active Brii Larson APRN Active PREDNISONE 20 MG TAB 1 tablet twice daily for 2 d ays, then 1 tablet once daily for 2 days PREDNISONE 11773223808 No Longer Active Brii Larson APRN Active PROMETHAZINE HCL 12.5 MG TABS 1 tablet by mouth every 6 hours as needed for nausea/vomiting PROMETHAZINE HCL 46952086110 No Longe r Active Jono Gagnon DO Active CITRATE OF MAGNESIA ORAL SOLN 1 bottle today for constipation 20 07/10/15 MAGNESIUM CITRATE 98380596154 No Longer Active Jono Gagnon DO Active ZOFRAN 4 MG ORAL TABS 1 TAB PO Q 6 HRS PRN NAUSEA 2014 ONDANSETRON HCL 85052734628 No Longer Active Brii Larson APRN A ctive LOMOTIL 2.5-0.025 MG TAB 1 to 2 four times a day as needed f or diarrhea DIPHENOXYLATE-ATROPINE 87359061734 No Longer Active January Larson APRN Active AMOXICILLIN 500 MG TABS 2 tabs twice a day for 10 days AMOXICILLIN 02229086943 No Longer Active Brii Larson APRN Acti ve CYCLOBENZAPRINE HCL 10 MG TABS 1/2 - 1 tablet by mouth three times daily as needed for muscle spasm/pain CYCLOBENZAPRINE HCL 27871586579 No Longer Active Arie Casper MD Active LOMOTIL 2.5-0.025 MG TABS 1 to 2 four times a day as needed for diarrhea DIPHENOXYLATE-ATROPINE 54760022502 No Longer Active D freddy Casper MD Active MACROBID 100 MG CAP 1 cap by mouth twice daily NITROFURANTOIN MONOHYD MACRO 82029731669 No Longer Active Arie Casper MD Active ZYRTEC ALLERGY 10 MG CAPS 1 po qd CETIRIZINE HCL 00724522326 No Longer Active Arie Casper MD Active AZITHROMYCIN 250 MG TABS 2 po qd x 1 day, then 1 po qd x 4 days AZITHROMYCIN 91827806784 No Longer Active Jillisael Frazelanette CABRERA Active PREDNISONE 20 MG TAB 2 tabs daily for 3 days, 1 t ab daily for 3 days, 1/2 tab daily for 2 days PREDNISONE 50537646890 No Longer Active Jillina Frazell RICK Active PROMETHAZINE HCL 25 MG TABS 1 four times a day as needed for vomiting PROMETHAZINE HCL 71726161303 No Longer Active Myrna Roberto MD Active BACTRIM DS 800-160 MG TABS 1 twice a day SULFAMETHOXAZOLE-TRIMETHOPRIM 80399046280 No Longer Active Myrna Roberto MD Active VICKS DAYQUIL SEVERE COLD/FLU TABS 1 tab every 6 hours prn 12/10 [id number] TABS 18429690840 No Longer Active Myrna leigh MD Active GUAIFENESIN-CODEINE 100-10 MG/5ML ORAL SYRP 2 tsp every 6 hours prn GUAIFENESIN-CODEINE 27557873890 No Longer Active Myrna Roberto MD Active NAPROXEN 500 MG TAB one tab PO BID NAPROXEN 332 67962225 No Longer Active Myrna Roberto MD Active AUGMENTIN 875-125 MG TAB 1 tab by mouth twice daily with food 20 08/12/16 AMOXICILLIN-POT CLAVULANATE 64718385948 No Longer Active Liliana Estrada MD PhD Active AMOXICILLIN 500 MG CAP 1 tab by mouth 3 times daily 08/12/16 AMOXICILLIN 50462114328 No Longer Active Liliana Estrada MD PhD Acti ve TESSALON PERLES 100 MG CAP 1 tablet by mouth 3 times daily 11/01 BENZONATATE 01612103630 No Longer Active Liliana Estrada MD PhD Active FLAGYL 500 MG TAB 1 tablet by mouth two times daily 07/11/29 METRONIDAZOLE 14227608057 No Longer Active Nilam Weber Active ZITHROMAX 250 MG TAB 2 po today, then 1 po q days 2-5 AZITHROMYCIN 25073562445 No Longer Active Arie Casper MD Acti ve VITAMINS 0.8 MG TABS take 1 tab po qday 08/08 [id number] 60458755586 No Longer Active Arie Casper MD Active IBUPROFEN 800 MG TABS take one po Q 8 hours IBU PROFEN 16238370596 No Longer Active Arie Casper MD Active [facility] TUSSIN COUGH/COLD CF 5-10-100 MG/5ML LIQD 2 teaspoons ev eliud 4 hours [id number] 69599061968 No Longer Active Blaine Casper MD Active COMTREX COLD/COUGH DAY/NITE MS 5-2-10-325 MG MISC 2 caps deja ry 4 hours [id number] 71474039099 No Longer Active Landon Casper MD Active CHLORASEPTIC MAX SORE THROAT 15-10 MG LOZG 1 every 2 hours prn 2 BENZOCAINE-MENTHOL 15490325027 No Longer Active Arie Marcelo Active PREDNISONE 20 MG TAB 2 tabs daily for 3 days, 1 t ab daily for 3 days, 1/2 tab daily for 2 days PREDNISONE 77649512786 No Longer Active Jose Zhong MD Active AZITHROMYCIN 250 MG TABS 2 po qd x 1 day, then 1 po qd x 4 days AZITHROMYCIN 19195590040 No Longer Active Jose Zhong MD Active ZOFRAN ODT 4 MG TBDP 1 po q6hr PRN Nausea ONDAN SETRON 20663926097 No Longer Active Rich Rosales MD Active ZOFRAN 4 MG TABS 1 tablet every 4 hours ONDANSE JERRELL HCL 57653984206 No Longer Active Rich Rosales MD Active MUCINEX 600 MG [id number] Take 1-2 tablets every 12 hours GUAIFENESIN 97391364037 No Longer Active Rich Rosales MD Activ e BACTRIM 400-80 MG TABS take one po BID SULFAMETHOXAZOLE-TRIMETHOPRIM 17170613048 No Longer Active Abelardo HERNANDEZ Active AZITHROMYCIN 500 MG TABS 1 PO q day x 6 days AZ ITHROMYCIN 89151684502 No Longer Active Tin HERNANDEZ Active ZITHROMAX 250 MG TAB 2 po today, then 1 po q days 2-5 AZITHROMYCIN 60242305951 No Longer Active Arie Casper MD Acti ve ZITHROMAX 250 MG TAB 2 po today, then 1 po q days 2-5 AZITHROMYCIN 42094833874 No Longer Active Arie Casper MD Acti ve AMOXICILLIN 500 MG CAP 1 tab by mouth 3 times daily 20 09/23/20 AMOXICILLIN 97915703642 No Longer Active Arie Casper MD Acti ve BACTRIM DS 800-160 MG TAB 1 tab by mouth twice daily 2 TRIMETHOPRIM-SULFAMETHOXAZOLE 06114154345 No Longer Active Arie Casper MD Active AMOXICILLIN 500 MG TABS take 1 tab po TID AMOXI CILLIN 90334106699 No Longer Active Arie Casper MD Active BACTRIM DS 800-160 MG TAB 1 tab by mouth twice daily 2 BACTRIM DS 800-160 MG TAB 676528 TRIMETHOPRIM-SULFAMETHOXAZOLE Inac tive MUCINEX 600 MG [id number]-UQF Take 1-2 tablets every 12 hours MUCINEX 600 MG [id number]-[id number] GUAIFENESIN Inactive ZOFRAN 4 MG TABS 1 tablet every 4 hours ZOFRAN 4 MG TABS 892361 ONDANSETRON HCL Inactive ZOFRAN ODT 4 MG TBDP 1 po q6hr PRN Nausea ZOFRAN ODT 4 MG TBDP 871291 ONDANSETRON Inactive CHLORASEPTIC MAX SORE THROAT 15-10 MG LOZG 1 every 2 hours prn 2 CHLORASEPTIC MAX SORE THROAT 15-10 MG LOZG BENZO ARINA-MENTHOL Inactive COMTREX COLD/COUGH DAY/NITE MS 5-2-10-325 MG MISC 2 caps deja ry 4 hours COMTREX COLD/COUGH DAY/NITE MS 5-2-10-325 MG MIS C [id number] Inactive [facility] TUSSIN COUGH/COLD CF 5-10-100 MG/5ML LIQD 2 teaspoons ev eliud 4 hours [facility] TUSSIN COUGH/COLD CF 5-10-100 MG/5ML LIQD [id number] Inactive IBUPROFEN 800 MG TABS take one po Q 8 hours IBUPROFEN 800 MG TABS IBUPROFEN Inactive VITAMINS 0.8 MG TABS take 1 tab po qday 08/08 VITAMINS 0.8 MG TABS [id number]-FA Inactive TESSALON PERLES 100 MG CAP 1 tablet by mouth 3 times daily 11/01 TESSALON PERLES 100 MG CAP 656175 BENZONATATE Inact zaid AMOXICILLIN 500 MG CAP 1 tab by mouth 3 times daily 08/12/16 AMOXICILLIN 500 MG CAP 973164 AMOXICILLIN Inactive GUAIFENESIN-CODEINE 100-10 MG/5ML ORAL SYRP 2 tsp every 6 hours prn GUAIFENESIN-CODEINE 100-10 MG/5ML ORAL SYRP 606592 GUAIFENESIN-CODEINE Inactive VICKS DAYQUIL SEVERE COLD/FLU TABS 1 tab every 6 hours prn 12/10 VICKS DAYQUIL SEVERE COLD/FLU TABS PHENYLEPHRINE -DM-GG-APAP TABS Inactive BACTRIM DS 800-160 MG TABS 1 twice a day BACTRIM DS 800- 160 MG TABS 554665 SULFAMETHOXAZOLE-TRIMETHOPRIM Inactive PROMETHAZINE HCL 25 MG TABS 1 four times a day as needed for vomiting PROMETHAZINE HCL 25 MG TABS 871848 PROMETHAZINE HCL Inactive ZYRTEC ALLERGY 10 MG CAPS 1 po qd ZY RTEC ALLERGY 10 MG CAPS CETIRIZINE HCL Inactive MACROBID 100 MG CAP 1 cap by mouth twice daily MACROBID 100 MG CAP 3632376 NITROFURANTOIN MONOHYD MACRO Inactive LOMOTIL 2.5-0.025 MG TABS 1 to 2 four times a day as needed for diarrhea LOMOTIL 2.5-0.025 MG TABS 1688392 DIPHENOXYLATE-A TROPINE Inactive CYCLOBENZAPRINE HCL 10 MG TABS 1/2 - 1 tablet by mouth three times daily as needed for muscle spasm/pain CYCLOBENZAP RINE HCL 10 MG TABS 252512 CYCLOBENZAPRINE HCL Inactive AMOXICILLIN 500 MG TABS 2 tabs twice a day for 10 days AMOXICILLIN 500 MG TABS 657872 AMOXICILLIN Inactive LOMOTIL 2.5-0.025 MG TAB 1 to 2 four times a day as needed f or diarrhea LOMOTIL 2.5-0.025 MG TAB 1523214 DIPHENOXYLATE-AT ROPINE Inactive ZOFRAN 4 MG ORAL TABS 1 TAB PO Q 6 HRS PRN NAUSEA 2014 ZOFRAN 4 MG ORAL TABS 578860 ONDANSETRON HCL Inactive CITRATE OF MAGNESIA ORAL SOLN 1 bottle today for constipation 20 07/10/15 CITRATE OF MAGNESIA ORAL SOLN 5365240 MAGNESIUM CITRATE Inactive PROMETHAZINE HCL 12.5 MG TABS 1 tablet by mouth every 6 hours as needed for nausea/vomiting PROMETHAZINE HCL 12.5 MG TABS 728910 PROMETHAZINE HCL Inactive PREDNISONE 20 MG TAB 1 tablet twice daily for 2 d ays, then 1 tablet once daily for 2 days PREDNISONE 20 MG TAB 860716 PREDNISONE Inac tive ALPRAZOLAM 0.25 MG TAB 1 tablet by mouth every 8 hours as ne eded for stress ALPRAZOLAM 0.25 MG TAB 269555 ALPRAZOLAM Inact azid FLONASE 50 MCG/ACT SUSP 1 spray each nostril twice d aily for allergies and runny nose until gone FLONASE 50 MCG/ACT SUSP F LUTICASONE PROPIONATE Inactive PREDNISONE 20 MG TAB 1 tablet daily for airway inflammation 2015 PREDNISONE 20 MG TAB 608114 PREDNISONE Inactive AMOXICILLIN 500 MG TABS take 1 tab po TID AMOXICILLIN 500 MG TABS 558344 AMOXICILLIN Inactive AMOXICILLIN 500 MG CAP 1 tab by mouth 3 times daily 09/23/20 AMOXICILLIN 500 MG CAP 668369 AMOXICILLIN Inactive ZITHROMAX 250 MG TAB 2 po today, then 1 po q days 2-5 ZITHROMAX 250 MG TAB 4502036 AZITHROMYCIN Inactive ZITHROMAX 250 MG TAB 2 po today, then 1 po q days 2-5 ZITHROMAX 250 MG TAB 6518840 AZITHROMYCIN Inactive AZITHROMYCIN 500 MG TABS 1 PO q day x 6 days 3 AZITHROMYCIN 500 MG TABS 1212567 AZITHROMYCIN Inactive BACTRIM 400-80 MG TABS take one po BID BA CTRIM 400-80 MG TABS 732342 SULFAMETHOXAZOLE-TRIMETHOPRIM Inactive AZITHROMYCIN 250 MG TABS 2 po qd x 1 day, then 1 po qd x 4 days AZITHROMYCIN 250 MG TABS 3301840 AZITHROMYCIN Inactiv e PREDNISONE 20 MG TAB 2 tabs daily for 3 days, 1 t ab daily for 3 days, 1/2 tab daily for 2 days PREDNISONE 20 MG TAB 565221 PREDNISON E Inactive ZITHROMAX 250 MG TAB 2 po today, then 1 po q days 2-5 ZITHROMAX 250 MG TAB 6698575 AZITHROMYCIN Inactive FLAGYL 500 MG TAB 1 tablet by mouth two times daily 07/11/29 FLAGYL 500 MG TAB 873553 METRONIDAZOLE Inactive AUGMENTIN 875-125 MG TAB 1 tab by mouth twice daily with food 20 08/12/16 AUGMENTIN 875-125 MG TAB 428218 AMOXICILLIN-POT CLAVULA ANGELO Inactive NAPROXEN 500 MG TAB one tab PO BID NAPROXEN 500 MG TAB 347201 NAPROXEN Inactive PREDNISONE 20 MG TAB 2 tabs daily for 3 days, 1 t ab daily for 3 days, 1/2 tab daily for 2 days PREDNISONE 20 MG TAB 131335 PREDNISON E Inactive AZITHROMYCIN 250 MG TABS 2 po qd x 1 day, then 1 po qd x 4 days AZITHROMYCIN 250 MG TABS 2766906 AZITHROMYCIN Inactiv e PREDNISONE 20 MG TAB 2 tabs daily for 3 days, 1 t ab daily for 3 days, 1/2 tab daily for 2 days PREDNISONE 20 MG TAB 856361 PREDNISON E Inactive ZITHROMAX Z-EMIL 250 MG TABS 2 today, then 1 daily for 4 days 201 03/31/18 ZITHROMAX Z-EMIL 250 MG TABS 0151874 AZITHROMYCIN Inac tive CEFDINIR 300 MG CAPS [...] Panel - Chemistry sodium, serum 136 mmol/L 432-017 4752/04/26 carbon dioxide, venous blood 29.9 mmol/L 21.0-32 [...] Negative Encounters Code Encounter Date Provider Facility CPT-84684 Level 4 Est. Patient 12:08:40 TRANSPORTATION BROKER Steve PROPERTY WORKER [facility] CPT-07989 Level 3 Est. Patient 09:24:42 CDT Steve [facility] CPT-21428 Level 3 Est. Patient 09:12:56 CDT Arie mcqueen MD [facility] CPT-00150 Level 3 Est. Patient 16:40:54 CDT Jose Zhong MD [facility] CPT-49464 Level 2 Est. Patient 13:01:13 CDT Steve PROPERTY WORK[employer] [facility] CPT-89276 Level 3 Est. Patient 11:55:30 TRANSPORTATION BROKER Jono black DO [facility] CPT-16287 Level 3 Est. Patient 09:52:36 TRANSPORTATION BROKER Steve CABRERA [facility] CPT-28996 Level 3 Est. Patient 16:25:33 TRANSPORTATION BROKER Rich Rosaels MD [facility] CPT-30773 Level 3 Est. Patient 20:33:55 CDT Arie mcqueen MD [facility] CPT-05641 Level 3 Est. Patient 14:18:20 CDT Rich Rosales MD [facility] CPT-68792 Level 4 Est. Patient 09:34:31 CDT Arie mcqueen MD [facility] CPT-43473 Level 3 Est. Patient 09:08:55 TRANSPORTATION BROKER Liliana vincent MD PhD [facility]-80241 Level 3 Est. Patient 16:44:07 TRANSPORTATION BROKER Arie mcqueen MD [facility] CPT-14213 Level 3 Est. Patient 10:44:27 CDT Arie mcqueen MD [facility] CPT-87840 Level 3 Est. Patient 08:55:41 CDT Jose Zhong MD [facility] CPT-16825 Level 3 Est. Patient 18:37:31 CDT Liliana vincent MD PhD [facility] CPT-67643 Level 3 Est. Patient 14:28:23 CDT Abelardo HERNANDEZ [facility] CPT-24851 Level 3 Est. Patient 15:18:13 TRANSPORTATION BROKER Arie mcqueen MD [facility] CPT-59880 Level 3 Est. Patient 10:11:29 TRANSPORTATION BROKER Arie mcqueen MD [facility] CPT-15939 Level 3 Est. Patient 10:55:57 TRANSPORTATION BROKER Jono black DO [facility] CPT-26451 Level 3 Est. Patient 17:29:05 CDT Arie mcqueen MD [facility] Procedures Code Procedure Name Date Entry Date Standard Desc ription CPT-68098 Sono transvag pelvis non OB uterus ovari es cervix - XRAY USE ONLY 08:58:14 TRANSPORTATION BROKER CPT-84757 UA w micro - LAB USE ONLY 16:04:56 TRANSPORTATION BROKER 2015 CPT-94007 Wet Prep/GEN - LAB USE ONLY 16:04:56 TRANSPORTATION BROKER 20 08/10/29 CPT-37137 First Vx - Ix admin via ID I M or jet injects without counseling by physician 16:57:10 CDT CPT-02558 Fluzone Preservative Free Intramuscular Suspension 16:57:10 CDT CPT-J0696 Rocephin 1000 mg (Ceftriaxone) 11:49:23 CDT CPT-J1040 Depo Medrol 80 mg (Methyl Prednisolone A cetate) 11:49:23 CDT CPT-J1100 Decadron 8mg (Dexamethasone) 11:49:23 CDT 2 CPT-02692 Abx/Therapy Injection 11:49:23 CDT CPT-08235 Abx/Therapy Injection 11:49:23 CDT CPT-79864 Abd compl w upright 09:07:26 TRANSPORTATION BROKER CPT-89142 Ear Wash 16:12:47 TRANSPORTATION BROKER CPT-OV Office Visit 11:12:01 CDT CPT-OV Office Visit 15:30:23 CDT CPT-88368 Sono pelvis non OB uterus ovaries cervix 15:50:44 CDT CPT-24035 Hand comp min 3V 16:42:32 CDT CPT-49469 Abd compl w upright 12:17:01 CDT CPT-99212 Nexplanon Placement 15:07:39 TRANSPORTATION BROKER CPT-23378 Removal of IUD 15:07:39 TRANSPORTATION BROKER CPT-10516 TB Tubersol 12:09:32 CDT CPT-40016 TB Tubersol 13:55:43 CDT
--- OUTSIDE RECORDS SUMMARY | 2020-03-03 08:31 | XMS REPORT | Clinical Summary ---
[...] care facility Sinusitis, maxillary, acute 461.0 Active Liilana Estrada MD PhD Acute maxillary sinusitis Neck [...] TAB one tab PO BID NAPROXEN 332 [id number] No Longer Active Myrna Roberto MD Active LOMOTIL 2.5-0.025 MG TABS 1 to 2 four times a day as needed for diarrhea DIPHENOXYLATE-ATROPINE 31919164759 Active Rich mcintosh MD Active PROMETHAZINE HCL 25 MG TABS 1 four times a day as needed for vomiting PROMETHAZINE HCL 83024302500 Active Rich Rosales MD Active BACTRIM DS 800-160 MG TABS 1 twice a day SULFAMETHOXAZOLE-TRIMETHOPRIM 41786393155 Active Rich Rosales MD Active AUGMENTIN 875-125 MG TAB 1 tab by mouth twice daily with food 20 08/12/16 AMOXICILLIN-POT CLAVULANATE 93122786491 No Longer Active Liliana Estrada MD PhD Active CYCLOBENZAPRINE HCL 10 MG TABS 1/2 - 1 tablet by mouth three times daily as needed for muscle spasm/pain CYCLOBENZAPRINE HCL 95642 577897 Active Liliana Estrada MD PhD Active GUAIFENESIN-CODEINE 100-10 MG/5ML ORAL SYRP 2 tsp every 6 hours prn GUAIFENESIN-CODEINE 16008956187 Active Liliana Estrada MD PhD Active VICKS DAYQUIL SEVERE COLD/FLU TABS 1 tab every 6 hours prn [id number] TABS 79265736333 Active Liliana Estrada MD PhD Active AMOXICILLIN 500 MG CAP 1 tab by mouth 3 times daily 08/12/16 AMOXICILLIN 35569743250 No Longer Active Liliana Estrada MD PhD Acti ve TESSALON PERLES 100 MG CAP 1 tablet by mouth 3 times daily 11/01 BENZONATATE 67991989027 No Longer Active Liliana Estrada MD PhD Active FLAGYL 500 MG TAB 1 tablet by mouth two times daily 07/11/29 METRONIDAZOLE 45451144116 No Longer Active Nilam Weber Active ZITHROMAX 250 MG TAB 2 po today, then 1 po q days 2-5 AZITHROMYCIN 05741193109 No Longer Active Arie Casper MD Acti ve VITAMINS 0.8 MG TABS take 1 tab po qday 08/08 [id number] 86798878544 No Longer Active Arie Casper MD Active IBUPROFEN 800 MG TABS take one po Q 8 hours IBU PROFEN 58012128193 No Longer Active Arie Casper MD Active [facility] TUSSIN COUGH/COLD CF 5-10-100 MG/5ML LIQD 2 teaspoons ev eliud 4 hours [id number] 94171247494 No Longer Active Blaine Casper MD Active COMTREX COLD/COUGH DAY/NITE MS 5-2-10-325 MG MISC 2 caps deja ry 4 hours [id number]-APAP 50389606078 No Longer Active Landon Casper MD Active CHLORASEPTIC MAX SORE THROAT 15-10 MG LOZG 1 every 2 hours prn 2 BENZOCAINE-MENTHOL 15182731033 No Longer Active Arie Marcelo Active PREDNISONE 20 MG TAB 2 tabs daily for 3 days, 1 t ab daily for 3 days, 1/2 tab daily for 2 days PREDNISONE 58067017291 No Longer Active Jose Zhong MD Active AZITHROMYCIN 250 MG TABS 2 po qd x 1 day, then 1 po qd x 4 days AZITHROMYCIN 76163493737 No Longer Active Jose Zhong MD Active ZOFRAN ODT 4 MG TBDP 1 po q6hr PRN Nausea ONDAN SETRON 92815503458 No Longer Active Rich Rosales MD Active ZOFRAN 4 MG TABS 1 tablet every 4 hours ONDANSE JERRELL HCL 01175515211 No Longer Active Rich Rosales MD Active MUCINEX 600 MG [id number] Take 1-2 tablets every 12 hours GUAIFENESIN 08365645498 No Longer Active Rich Rosales MD Activ e BACTRIM 400-80 MG TABS take one po BID SULFAMETHOXAZOLE-TRIMETHOPRIM 43551793455 No Longer Active Abelardo HERNANDEZ Active AZITHROMYCIN 500 MG TABS 1 PO q day x 6 days AZ ITHROMYCIN 43739094051 No Longer Active Tin HERNANDEZ Active ZITHROMAX 250 MG TAB 2 po today, then 1 po q days 2-5 AZITHROMYCIN 27552320682 No Longer Active Arie Casper MD Acti ve ZITHROMAX 250 MG TAB 2 po today, then 1 po q days 2-5 AZITHROMYCIN 17679405849 No Longer Active Arie Casper MD Acti ve AMOXICILLIN 500 MG CAP 1 tab by mouth 3 times daily 09/23/20 AMOXICILLIN 74250825009 No Longer Active Arie Casper MD Acti ve BACTRIM DS 800-160 MG TAB 1 tab by mouth twice daily 2 TRIMETHOPRIM-SULFAMETHOXAZOLE 25488889839 No Longer Active Arie Casper MD Active AMOXICILLIN 500 MG TABS take 1 tab po TID AMOXI CILLIN 72282729716 No Longer Active Arie Casper MD Active BACTRIM DS 800-160 MG TAB 1 tab by mouth twice daily 2 BACTRIM DS 800-160 MG TAB TRIMETHOPRIM-SULFAMETHOXAZOLE Inac tive MUCINEX 600 MG [id number] Take 1-2 tablets every 12 hours MUCINEX 600 MG [id number] GUAIFENESIN Inactive ZOFRAN 4 MG TABS 1 tablet every 4 hours ZOFRAN 4 MG TABS 863249 ONDANSETRON HCL Inactive ZOFRAN ODT 4 MG TBDP 1 po q6hr PRN Nausea ZOFRAN ODT 4 MG TBDP 636913 ONDANSETRON Inactive CHLORASEPTIC MAX SORE THROAT 15-10 MG LOZG 1 every 2 hours prn 2 /04/30 CHLORASEPTIC MAX SORE THROAT 15-10 MG LOZG BENZO ARINA-MENTHOL Inactive COMTREX COLD/COUGH DAY/NITE MS 5-2-10-325 MG MISC 2 caps deja ry 4 hours COMTREX COLD/COUGH DAY/NITE MS 5-2-10-325 MG MIS C [id number] Inactive [facility] TUSSIN COUGH/COLD CF 5-10-100 MG/5ML LIQD 2 teaspoons ev eliud 4 hours [facility] TUSSIN COUGH/COLD CF 5-10-100 MG/5ML LIQD [id number] Inactive IBUPROFEN 800 MG TABS take one po Q 8 hours IBUPROFEN 800 MG TABS 162549 IBUPROFEN Inactive VITAMINS 0.8 MG TABS take 1 tab po qday 08/08 VITAMINS 0.8 MG TABS [id number] Inactive TESSALON PERLES 100 MG CAP 1 tablet by mouth 3 times daily 11/01 TESSALON PERLES 100 MG CAP 017388 BENZONATATE Inact zaid AMOXICILLIN 500 MG CAP 1 tab by mouth 3 times daily 08/12/16 AMOXICILLIN 500 MG CAP 665447 AMOXICILLIN Inactive AMOXICILLIN 500 MG TABS take 1 tab po TID AMOXICILLIN 500 MG TABS 852138 AMOXICILLIN Inactive AMOXICILLIN 500 MG CAP 1 tab by mouth 3 times daily 09/23/20 AMOXICILLIN 500 MG CAP 393227 AMOXICILLIN Inactive ZITHROMAX 250 MG TAB 2 po today, then 1 po q days 2-5 ZITHROMAX 250 MG TAB 8843534 AZITHROMYCIN Inactive ZITHROMAX 250 MG TAB 2 po today, then 1 po q days 2-5 ZITHROMAX 250 MG TAB 8147190 AZITHROMYCIN Inactive AZITHROMYCIN 500 MG TABS 1 PO q day x 6 days 3 AZITHROMYCIN 500 MG TABS 1444853 AZITHROMYCIN Inactive BACTRIM 400-80 MG TABS take one po BID BA CTRIM 400-80 MG TABS 553517 SULFAMETHOXAZOLE-TRIMETHOPRIM Inactive AZITHROMYCIN 250 MG TABS 2 po qd x 1 day, then 1 po qd x 4 days AZITHROMYCIN 250 MG TABS 6351831 AZITHROMYCIN Inactiv e PREDNISONE 20 MG TAB 2 tabs daily for 3 days, 1 t ab daily for 3 days, 1/2 tab daily for 2 days PREDNISONE 20 MG TAB 473529 PREDNISON E Inactive ZITHROMAX 250 MG TAB 2 po today, then 1 po q days 2-5 ZITHROMAX 250 MG TAB 7716319 AZITHROMYCIN Inactive FLAGYL 500 MG TAB 1 tablet by mouth two times daily 07/11/29 FLAGYL 500 MG TAB 472873 METRONIDAZOLE Inactive AUGMENTIN 875-125 MG TAB 1 tab by mouth twice daily with food 08/12/16 AUGMENTIN 875-125 MG TAB 298772 AMOXICILLIN-POT CLAVULA ANGELO Inactive NAPROXEN 500 MG TAB one tab PO BID NAPROXEN 500 MG TAB 600070 NAPROXEN Inactive Advance Directives Directive Description Start [...] 214 10^3/MM^3 10*3/mm3 142-424 Lab Report: Chlamydia/GC APTIMA/[id number] - Lab chlamydia DNA probe NOT DETECTED NOT DETECTED Lab Report: Chlamydia/GC APTIMA/[id number] - Microbiology Neisseria gonorrhoeae DNA probe NOT [...] 5.0-8.5 Encounters Code Encounter Date Provider Facility CPT-98276 Level 3 Est. Patient 14:18:20 CDT Rich Rosales MD [facility] CPT-26354 Level 4 Est. Patient 09:34:31 CDT Arie mcqueen MD [facility] CPT-25747 Level 3 Est. Patient 09:08:55 RESEARCH GEOLOGIST Liliana vincent MD PhD [facility] CPT-93963 Level 3 Est. Patient 16:44:07 RESEARCH GEOLOGIST Arie mcqueen MD [facility] CPT-19329 Level 3 Est. Patient 10:44:27 CDT Arie mcqueen MD [facility] CPT-73481 Level 3 Est. Patient 08:55:41 CDT Jose Zhong MD [facility] CPT-69531 Level 3 Est. Patient 18:37:31 CDT Liliana vincent MD [facility] CPT-95726 Level 3 Est. Patient 14:28:23 CDT Abelardo marroquin [facility] CPT-16824 Level 3 Est. Patient 15:18:13 RESEARCH GEOLOGIST Arie mcqueen MD [facility] CPT-59825 Level 3 Est. Patient 10:11:29 RESEARCH GEOLOGIST Arie mcqueen MD [facility] CPT-60161 Level 3 Est. Patient 10:55:57 RESEARCH GEOLOGIST Jono black DO [facility] CPT-70193 Level 3 Est. Patient 17:29:05 CDT Arie mcqueen MD [facility] Procedures Code Procedure Name Date Entry Date Standard Desc ription CPT-OV Office Visit 15:30:23 CDT CPT-66465 Sono pelvis non OB uterus ovaries cervix 15:50:44 CDT CPT-46434 Hand comp min 3V 16:42:32 CDT CPT-21419 Abd compl w upright 12:17:01 CDT CPT-07286 Nexplanon Placement 15:07:39 RESEARCH GEOLOGIST CPT-45498 Removal of IUD 15:07:39 RESEARCH GEOLOGIST CPT-10257 TB Tubersol 12:09:32 CDT CPT-76108 TB Tubersol 13:55:43 CDT
--- OUTSIDE RECORDS SUMMARY | 2020-03-03 08:32 | XMS REPORT | Clinical Summary ---
Author Author Admin, Diamante Marcelo Organization [employer] Address Unknown Phone Unavailable Allergies, Adverse Reactions, [...] cute pharyngitis Nausea 787.02 Active Brii Larson [employer] Nausea alone URI 465.9 Active Jono Gagnon DO Acu te upper respiratory infections of unspecified site Allergic rhinitis 477.9 Active Brii Christianson PRN Allergic rhinitis, cause unspecified Abdominal pain, right lower quadrant 789.03 Active Jose Zhong MD Abdominal pain, right lower quadrant Urinary frequency 788.41 Inactive Roseann Crawford Urinary frequency Urinary frequency 788.41 Active 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, 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 Urinary frequency Sinusitis - acute 461.9 Active Brii Christianson PRN Acute sinusitis, unspecified Anxiety with depression 300.4 Active Glenn Larson [employer] Dysthymic disorder URI 465.9 Active Jono Gagnon [...] IMPL right arm subcutaneously ETONOGE STREL IMPL 82952556858 No Longer Active Brii Larson APRN Active TUSSIONEX PENNKINETIC ER 10-8 MG/5ML LQCR 5ml po q12hr PRN Cough HYDROCOD POLST-CHLORPHEN POLST 14333517960 No Longer Active Brii Larson APRN Active CETIRIZINE HCL 10 MG ORAL TABS 1 po qd PRN Allergies 2 CETIRIZINE HCL 97335795421 No Longer Active Brii Larson APRN Ac tive PREDNISONE 20 MG TAB 2 tabs daily for 3 days, 1 t ab daily for 3 days, 1/2 tab daily for 2 days PREDNISONE 14650179029 No Longer Active Arie Casper MD Active LOMOTIL 2.5-0.025 MG TAB 1 tab po four times a day as needed for diarrhea DIPHENOXYLATE-ATROPINE 46361334532 No Longer Active Mason Casper MD Active ZOLOFT 50 MG TAB 1 tablet by mouth daily SERTRA LINE HCL 51264849815 No Longer Active Arie Casper MD Active NAPROXEN 500 MG TAB Take 1 tab BID NAPROXEN 332 13690579 No Longer Active Arie Casper MD Active CEFDINIR 300 MG CAPS 1 po BID x 10 days CEFDINI R 69763879824 No Longer Active Brii Larson APRN Active PREDNISONE 20 MG TAB 1 tablet daily for airway inflammation 2015 PREDNISONE 46055163611 No Longer Active Brii Larson APRN Active CEFDINIR 300 MG CAPS 1 po BID x 10 days CEFDINI R 78824074063 No Longer Active Jono Gagnon DO Active FLONASE 50 MCG/ACT SUSP 1 spray each nostril twice d aily for allergies and runny nose until gone FLUTICASONE PROPIONATE No Longe r Active Jono Gagnon DO Active ALPRAZOLAM 0.25 MG TAB 1 tablet by mouth every 8 hours as ne eded for stress ALPRAZOLAM 01129543793 No Longer Active Jono Gagnon DO Active ZITHROMAX Z-EMIL 250 MG TABS 2 today, then 1 daily for 4 days 201 03/31/18 AZITHROMYCIN 87653625116 No Longer Active Arie Casper MD Active PROTONIX 40 MG ORAL TBEC 1 po q a.m. PANTOPRAZO LE SODIUM 83064326769 Active Arie Casper MD Active PREDNISONE 20 MG TAB 2 tabs daily for 3 days, 1 t ab daily for 3 days, 1/2 tab daily for 2 days PREDNISONE 61185157031 No Longer Active Brii Larson APRN Active PREDNISONE 20 MG TAB 1 tablet twice daily for 2 d ays, then 1 tablet once daily for 2 days PREDNISONE 49433877548 No Longer Active Brii Larson APRN Active PROMETHAZINE HCL 12.5 MG TABS 1 tablet by mouth every 6 hours as needed for nausea/vomiting PROMETHAZINE HCL 15777463708 No Longe r Active Jono Gagnon DO Active CITRATE OF MAGNESIA ORAL SOLN 1 bottle today for constipation 20 07/10/15 MAGNESIUM CITRATE 46674077227 No Longer Active Jono Gagnon DO Active ZOFRAN 4 MG ORAL TABS 1 TAB PO Q 6 HRS PRN NAUSEA 2014 ONDANSETRON HCL 93422816949 No Longer Active Brii Larson APRN A ctive LOMOTIL 2.5-0.025 MG TAB 1 to 2 four times a day as needed f or diarrhea DIPHENOXYLATE-ATROPINE 70093807919 No Longer Active January Larson APRN Active AMOXICILLIN 500 MG TABS 2 tabs twice a day for 10 days AMOXICILLIN 10675161679 No Longer Active Brii Larson APRN Acti ve CYCLOBENZAPRINE HCL 10 MG TABS 1/2 - 1 tablet by mouth three times daily as needed for muscle spasm/pain CYCLOBENZAPRINE HCL 97679040038 No Longer Active Arie Casper MD Active LOMOTIL 2.5-0.025 MG TABS 1 to 2 four times a day as needed for diarrhea DIPHENOXYLATE-ATROPINE 14822584064 No Longer Active Mason Casper MD Active MACROBID 100 MG CAP 1 cap by mouth twice daily NITROFURANTOIN MONOHYD MACRO 08655440517 No Longer Active Arie Casper MD Active ZYRTEC ALLERGY 10 MG CAPS 1 po qd CETIRIZINE HCL 93230738183 No Longer Active Arie Casper MD Active AZITHROMYCIN 250 MG TABS 2 po qd x 1 day, then 1 po qd x 4 days AZITHROMYCIN 87094905343 No Longer Active Jillina Frazell [employer] Active PREDNISONE 20 MG TAB 2 tabs daily for 3 days, 1 t ab daily for 3 days, 1/2 tab daily for 2 days PREDNISONE 38739970710 No Longer Active Jillina Frazell [employer] Active PROMETHAZINE HCL 25 MG TABS 1 four times a day as needed for vomiting PROMETHAZINE HCL 64690219222 No Longer Active Myrna Roberto MD Active BACTRIM DS 800-160 MG TABS 1 twice a day SULFAMETHOXAZOLE-TRIMETHOPRIM 49677326593 No Longer Active Myrna Roberto MD Active VICKS DAYQUIL SEVERE COLD/FLU TABS 1 tab every 6 hours prn 12/10 [id number]-APAP TABS 96062916974 No Longer Active Myrna leigh MD Active GUAIFENESIN-CODEINE 100-10 MG/5ML ORAL SYRP 2 tsp every 6 hours prn GUAIFENESIN-CODEINE 60100529422 No Longer Active Myrna Roberto MD Active NAPROXEN 500 MG TAB one tab PO BID NAPROXEN 332 40448877 No Longer Active Myrna Roberto MD Active AUGMENTIN 875-125 MG TAB 1 tab by mouth twice daily with food 20 08/12/16 AMOXICILLIN-POT CLAVULANATE 02959195442 No Longer Active Liliana Estrada MD [facility] Active AMOXICILLIN 500 MG CAP 1 tab by mouth 3 times daily 08/12/16 AMOXICILLIN 31277456984 No Longer Active Liliana Estrdaa MD PhD Acti ve TESSALON PERLES 100 MG CAP 1 tablet by mouth 3 times daily 11/01 BENZONATATE 18627347211 No Longer Active Liliana Estrada MD PhD Active FLAGYL 500 MG TAB 1 tablet by mouth two times daily 20 07/11/29 METRONIDAZOLE 11754877124 No Longer Active Nilam Weber Active ZITHROMAX 250 MG TAB 2 po today, then 1 po q days 2-5 AZITHROMYCIN 74382311633 No Longer Active Arie Casper MD Acti ve VITAMINS 0.8 MG TABS take 1 tab po qday 08/08 [id number] 07045219097 No Longer Active Arie Casper MD Active IBUPROFEN 800 MG TABS take one po Q 8 hours IBU PROFEN 72491892593 No Longer Active Arie Casper MD Active [facility] TUSSIN COUGH/COLD CF 5-10-100 MG/5ML LIQD 2 teaspoons ev eliud 4 hours [id number] 33794743365 No Longer Active Blaine Casper MD Active COMTREX COLD/COUGH DAY/NITE MS 5-2-10-325 MG MISC 2 caps deja ry 4 hours [id number] 72811449264 No Longer Active Da vimason Casper MD Active CHLORASEPTIC MAX SORE THROAT 15-10 MG LOZG 1 every 2 hours prn 2 BENZOCAINE-MENTHOL 92568461876 No Longer Active Arie Marcelo Active PREDNISONE 20 MG TAB 2 tabs daily for 3 days, 1 t ab daily for 3 days, 1/2 tab daily for 2 days PREDNISONE 63822879255 No Longer Active Jose Zhong MD Active AZITHROMYCIN 250 MG TABS 2 po qd x 1 day, then 1 po qd x 4 days AZITHROMYCIN 72086182199 No Longer Active Jose Zhong MD Active ZOFRAN ODT 4 MG TBDP 1 po q6hr PRN Nausea ONDAN SETRON 61966881737 No Longer Active Rich Rosales MD Active ZOFRAN 4 MG TABS 1 tablet every 4 hours ONDANSE JERRELL HCL 00755468350 No Longer Active Rich Rosales MD Active MUCINEX 600 MG [id number] Take 1-2 tablets every 12 hours GUAIFENESIN 30030731925 No Longer Active Rich Rosales MD Activ e BACTRIM 400-80 MG TABS take one po BID SULFAMETHOXAZOLE-TRIMETHOPRIM 42110719820 No Longer Active Abelardo HERNANDEZ Active AZITHROMYCIN 500 MG TABS 1 PO q day x 6 days AZ ITHROMYCIN 12760802057 No Longer Active Tin HERNANDEZ Active ZITHROMAX 250 MG TAB 2 po today, then 1 po q days 2-5 AZITHROMYCIN 57183422428 No Longer Active Arie Casper MD Acti ve ZITHROMAX 250 MG TAB 2 po today, then 1 po q days 2-5 AZITHROMYCIN 46385801232 No Longer Active Arie Casper MD Acti ve AMOXICILLIN 500 MG CAP 1 tab by mouth 3 times daily 20 09/23/20 AMOXICILLIN 27469906335 No Longer Active Arie Casper MD Acti ve BACTRIM DS 800-160 MG TAB 1 tab by mouth twice daily 2 TRIMETHOPRIM-SULFAMETHOXAZOLE 68562666767 No Longer Active Arie Casper MD Active AMOXICILLIN 500 MG TABS take 1 tab po TID AMOXI CILLIN 38237701917 No Longer Active Arie Casper MD Active BACTRIM DS 800-160 MG TAB 1 tab by mouth twice daily 2 BACTRIM DS 800-160 MG TAB 091104 TRIMETHOPRIM-SULFAMETHOXAZOLE Inac tive MUCINEX 600 MG [id number] Take 1-2 tablets every 12 hours MUCINEX 600 MG [id number] GUAIFENESIN Inactive ZOFRAN 4 MG TABS 1 tablet every 4 hours ZOFRAN 4 MG TABS 569120 ONDANSETRON HCL Inactive ZOFRAN ODT 4 MG TBDP 1 po q6hr PRN Nausea ZOFRAN ODT 4 MG TBDP 049428 ONDANSETRON Inactive CHLORASEPTIC MAX SORE THROAT 15-10 MG LOZG 1 every 2 hours prn 2 CHLORASEPTIC MAX SORE THROAT 15-10 MG LOZG BENZO ARINA-MENTHOL Inactive COMTREX COLD/COUGH DAY/NITE MS 5-2-10-325 MG MISC 2 caps deja ry 4 hours COMTREX COLD/COUGH DAY/NITE MS 5-2-10-325 MG MIS C [id number] Inactive [facility] TUSSIN COUGH/COLD CF 5-10-100 MG/5ML LIQD 2 teaspoons ev eliud 4 hours [facility] TUSSIN COUGH/COLD CF 5-10-100 MG/5ML LIQD [id number] Inactive IBUPROFEN 800 MG TABS take one po Q 8 hours IBUPROFEN 800 MG TABS IBUPROFEN Inactive VITAMINS 0.8 MG TABS take 1 tab po qday 08/08 VITAMINS 0.8 MG TABS [id number] Inactive TESSALON PERLES 100 MG CAP 1 tablet by mouth 3 times daily 11/01 TESSALON PERLES 100 MG CAP 931645 BENZONATATE Inact zaid AMOXICILLIN 500 MG CAP 1 tab by mouth 3 times daily 08/12/16 AMOXICILLIN 500 MG CAP 406527 AMOXICILLIN Inactive GUAIFENESIN-CODEINE 100-10 MG/5ML ORAL SYRP 2 tsp every 6 hours prn GUAIFENESIN-CODEINE 100-10 MG/5ML ORAL SYRP 888715 GUAIFENESIN-CODEINE Inactive VICKS DAYQUIL SEVERE COLD/FLU TABS 1 tab every 6 hours prn 12/10 VICKS DAYQUIL SEVERE COLD/FLU TABS PHENYLEPHRINE -DM-GG-APAP TABS Inactive BACTRIM DS 800-160 MG TABS 1 twice a day BACTRIM DS 800- 160 MG TABS 251127 SULFAMETHOXAZOLE-TRIMETHOPRIM Inactive PROMETHAZINE HCL 25 MG TABS 1 four times a day as needed for vomiting PROMETHAZINE HCL 25 MG TABS 371535 PROMETHAZINE HCL Inactive ZYRTEC ALLERGY 10 MG CAPS 1 po qd ZY RTEC ALLERGY 10 MG CAPS CETIRIZINE HCL Inactive MACROBID 100 MG CAP 1 cap by mouth twice daily MACROBID 100 MG CAP 2879436 NITROFURANTOIN MONOHYD MACRO Inactive LOMOTIL 2.5-0.025 MG TABS 1 to 2 four times a day as needed for diarrhea LOMOTIL 2.5-0.025 MG TABS 1516333 DIPHENOXYLATE-A TROPINE Inactive CYCLOBENZAPRINE HCL 10 MG TABS 1/2 - 1 tablet by mouth three times daily as needed for muscle spasm/pain CYCLOBENZAP RINE HCL 10 MG TABS 525121 CYCLOBENZAPRINE HCL Inactive AMOXICILLIN 500 MG TABS 2 tabs twice a day for 10 days AMOXICILLIN 500 MG TABS 270456 AMOXICILLIN Inactive LOMOTIL 2.5-0.025 MG TAB 1 to 2 four times a day as needed f or diarrhea LOMOTIL 2.5-0.025 MG TAB 8410435 DIPHENOXYLATE-AT ROPINE Inactive ZOFRAN 4 MG ORAL TABS 1 TAB PO Q 6 HRS PRN NAUSEA 2014 ZOFRAN 4 MG ORAL TABS 260865 ONDANSETRON HCL Inactive CITRATE OF MAGNESIA ORAL SOLN 1 bottle today for constipation 20 07/10/15 CITRATE OF MAGNESIA ORAL SOLN 8791311 MAGNESIUM CITRATE Inactive PROMETHAZINE HCL 12.5 MG TABS 1 tablet by mouth every 6 hours as needed for nausea/vomiting PROMETHAZINE HCL 12.5 MG TABS 497544 PROMETHAZINE HCL Inactive PREDNISONE 20 MG TAB 1 tablet twice daily for 2 d ays, then 1 tablet once daily for 2 days PREDNISONE 20 MG TAB 746641 PREDNISONE Inac tive ALPRAZOLAM 0.25 MG TAB 1 tablet by mouth every 8 hours as ne eded for stress ALPRAZOLAM 0.25 MG TAB 381797 ALPRAZOLAM Inact zaid FLONASE 50 MCG/ACT SUSP 1 spray each nostril twice d aily for allergies and runny nose until gone FLONASE 50 MCG/ACT SUSP 9127077 FLUTICASONE PROPIONATE Inactive PREDNISONE 20 MG TAB 1 tablet daily for airway inflammation 2015 PREDNISONE 20 MG TAB 485231 PREDNISONE Inactive NAPROXEN 500 MG TAB Take 1 tab BID NAPROXEN 500 MG TAB 734475 NAPROXEN Inactive ZOLOFT 50 MG TAB 1 tablet by mouth daily ZOLOFT 50 MG TAB 661965 SERTRALINE HCL Inactive LOMOTIL 2.5-0.025 MG TAB 1 tab po four times a day as needed for diarrhea LOMOTIL 2.5-0.025 MG TAB 0391081 DIPHENOXYLATE-AT ROPINE Inactive CETIRIZINE HCL 10 MG ORAL TABS 1 po qd PRN Allergies 2 CETIRIZINE HCL 10 MG ORAL TABS 3600905 CETIRIZINE HCL Inactive TUSSIONEX PENNKINETIC ER 10-8 MG/5ML LQCR 5ml po q12hr PRN Cough TUSSIONEX PENNKINETIC ER 10-8 MG/5ML LQCR HYDROCOD POLST-CHLORPHEN POLST Inactive NEXPLANON IMPL right arm subcutaneously NEXPLANO N IMPL ETONOGESTREL IMPL Inactive AMOXICILLIN 500 MG TABS take 1 tab po TID AMOXICILLIN 500 MG TABS 729789 AMOXICILLIN Inactive AMOXICILLIN 500 MG CAP 1 tab by mouth 3 times daily 09/23/20 AMOXICILLIN 500 MG CAP 702904 AMOXICILLIN Inactive ZITHROMAX 250 MG TAB 2 po today, then 1 po q days 2-5 ZITHROMAX 250 MG TAB 634710 AZITHROMYCIN Inactive ZITHROMAX 250 MG TAB 2 po today, then 1 po q days 2-5 ZITHROMAX 250 MG TAB 077841 AZITHROMYCIN Inactive AZITHROMYCIN 500 MG TABS 1 PO q day x 6 days 3 AZITHROMYCIN 500 MG TABS 6042469 AZITHROMYCIN Inactive BACTRIM 400-80 MG TABS take one po BID BA CTRIM 400-80 MG TABS 112632 SULFAMETHOXAZOLE-TRIMETHOPRIM Inactive AZITHROMYCIN 250 MG TABS 2 po qd x 1 day, then 1 po qd x 4 days AZITHROMYCIN 250 MG TABS 176216 AZITHROMYCIN Inactiv e PREDNISONE 20 MG TAB 2 tabs daily for 3 days, 1 t ab daily for 3 days, 1/2 tab daily for 2 days PREDNISONE 20 MG TAB 411221 PREDNISON E Inactive ZITHROMAX 250 MG TAB 2 po today, then 1 po q days 2-5 ZITHROMAX 250 MG TAB 614338 AZITHROMYCIN Inactive FLAGYL 500 MG TAB 1 tablet by mouth two times daily 07/11/29 FLAGYL 500 MG TAB 797384 METRONIDAZOLE Inactive AUGMENTIN 875-125 MG TAB 1 tab by mouth twice daily with food 08/12/16 AUGMENTIN 875-125 MG TAB 417714 AMOXICILLIN-POT CLAVULA ANGELO Inactive NAPROXEN 500 MG TAB one tab PO BID NAPROXEN 500 MG TAB 815050 NAPROXEN Inactive PREDNISONE 20 MG TAB 2 tabs daily for 3 days, 1 t ab daily for 3 days, 1/2 tab daily for 2 days PREDNISONE 20 MG TAB 464744 PREDNISON E Inactive AZITHROMYCIN 250 MG TABS 2 po qd x 1 day, then 1 po qd x 4 days AZITHROMYCIN 250 MG TABS 361474 AZITHROMYCIN Inactiv e PREDNISONE 20 MG TAB 2 tabs daily for 3 days, 1 t ab daily for 3 days, 1/2 tab daily for 2 days PREDNISONE 20 MG TAB 702480 PREDNISON E Inactive ZITHROMAX Z-EMIL 250 MG TABS 2 today, then 1 daily for 4 days 201 03/31/18 ZITHROMAX Z-EMIL 250 MG TABS 603637 AZITHROMYCIN Inac tive CEFDINIR 300 MG CAPS [...] for 2 days PREDNISONE 20 MG TAB 707107 PREDNISON E Inactive Advance Directives Directive Description [...] Value Unit Range Description Lab Report: Chlamydia/GC APTIMA/[id number] - Lab chlamydia DNA probe NOT DETECTED NOT DETECTED Lab Report: Chlamydia/GC APTIMA/28127 - Microbiology Neisseria gonorrhoeae DNA probe NOT [...] 5.0-8.5 Encounters Code Encounter Date Provider Facility CPT-50560 Level 3 Est. Patient 15:40:28 CDT Steve [employer] [facility] CPT-15614 Level 3 Est. Patient 16:40:36 CDT Arie mcqueen MD [facility] CPT-13547 Level 4 Est. Patient 15:29:22 R AND D LAB TECHNICIAN Arie mcqueen MD [facility] CPT-39327 Level 3 Est. Patient 15:18:16 R AND D LAB TECHNICIAN Jono black [facility] CPT-17292 Level 4 Est. Patient 12:08:40 R AND D LAB TECHNICIAN Steve [employer] [facility] CPT-47065 Level 3 Est. Patient 09:24:42 CDT Steve [facility] CPT-19637 Level 3 Est. Patient 09:12:56 CDT Arie mcqueen MD [facility] CPT-98445 Level 3 Est. Patient 16:40:54 CDT Jose Zhong MD [facility] CPT-42598 Level 2 Est. Patient 13:01:13 CDT Steve [employer] [facility] CPT-78060 Level 3 Est. Patient 11:55:30 R AND D LAB TECHNICIAN Jono black [facility] CPT-90100 Level 3 Est. Patient 09:52:36 R AND D LAB TECHNICIAN Steve RICK [facility] CPT-10191 Level 3 Est. Patient 16:25:33 R AND D LAB TECHNICIAN Rich Rosales MD [facility] CPT-23500 Level 3 Est. Patient 20:33:55 CDT Arie mcqueen MD [facility] CPT-86940 Level 3 Est. Patient 14:18:20 CDT Rich Rosales MD [facility] CPT-17808 Level 4 Est. Patient 09:34:31 CDT Arie mcqueen MD [facility] CPT-55675 Level 3 Est. Patient 09:08:55 R AND D LAB TECHNICIAN Liliana vincent MD PhD [facility]-96734 Level 3 Est. Patient 16:44:07 R AND D LAB TECHNICIAN Arie mcqueen MD [facility] CPT-97744 Level 3 Est. Patient 10:44:27 CDT Arie mcqueen MD [facility] CPT-66679 Level 3 Est. Patient 08:55:41 CDT Jose Zhong MD [facility] CPT-55227 Level 3 Est. Patient 18:37:31 CDT Liliana vincent MD PhD [facility] CPT-07307 Level 3 Est. Patient 14:28:23 CDT Abelardo HERNANDEZ [facility] CPT-13532 Level 3 Est. Patient 15:18:13 R AND D LAB TECHNICIAN Arie mcqueen MD [facility] CPT-13108 Level 3 Est. Patient 10:11:29 R AND D LAB TECHNICIAN Arie mcqueen MD [facility] CPT-91447 Level 3 Est. Patient 10:55:57 R AND D LAB TECHNICIAN Jono black DO [facility] CPT-72877 Level 3 Est. Patient 17:29:05 CDT Arie mcqueen MD [facility] Procedures Code Procedure Name Date Entry Date Standard Desc ription CPT-46141 Nexplanon Removal 15:40:28 CDT CPT-72178 Sono transvag pelvis non OB uterus ovari es cervix - XRAY USE ONLY 08:58:14 R AND D LAB TECHNICIAN CPT-10769 UA w micro - LAB USE ONLY 16:04:56 R AND D LAB TECHNICIAN 2015 CPT-03693 Wet Prep/GEN - LAB USE ONLY 16:04:56 R AND D LAB TECHNICIAN 20 08/10/29 CPT-57778 First Vx - Ix admin via ID I M or jet injects without counseling by physician 16:57:10 CDT CPT-38323 Fluzone Preservative Free Intramuscular Suspension 16:57:10 CDT CPT-J0696 Rocephin 1000 mg (Ceftriaxone) 11:49:23 CDT CPT-J1040 Depo Medrol 80 mg (Methyl Prednisolone A cetate) 11:49:23 CDT CPT-J1100 Decadron 8mg (Dexamethasone) 11:49:23 CDT 2 CPT-90300 Abx/Therapy Injection 11:49:23 CDT CPT-66938 Abx/Therapy Injection 11:49:23 CDT CPT-81983 Abd compl w upright 09:07:26 R AND D LAB TECHNICIAN CPT-01678 Ear Wash 16:12:47 R AND D LAB TECHNICIAN CPT-OV Office Visit 11:12:01 CDT CPT-OV Office Visit 15:30:23 CDT CPT-75851 Sono pelvis non OB uterus ovaries cervix 15:50:44 CDT CPT-71932 Hand comp min 3V 16:42:32 CDT CPT-69079 Abd compl w upright 12:17:01 CDT CPT-62008 Nexplanon Placement 15:07:39 R AND D LAB TECHNICIAN CPT-41802 Removal of IUD 15:07:39 R AND D LAB TECHNICIAN CPT-50427 TB Tubersol 12:09:32 CDT CPT-64652 TB Tubersol 13:55:43 CDT
--- OUTSIDE RECORDS SUMMARY | 2020-03-03 08:32 | XMS REPORT | Clinical Summary ---
Author Author Admin, Diamante Marcelo Organization [facility] Address Unknown Phone Unavailable Allergies, Adverse [...] cute pharyngitis Nausea 787.02 Active Brii Larson RAT EXTERMINATOR Nausea alone URI 465.9 Active Jono Gagnon [...] 1 po q a.m. PANTOPRAZO LE SODIUM 64367448864 Active Jose Zhong MD Active PREDNISONE 20 MG TAB 2 tabs daily for 3 days, 1 t ab daily for 3 days, 1/2 tab daily for 2 days PREDNISONE 58603582495 No Longer Active Brii Larson APRN Active PREDNISONE 20 MG TAB 1 tablet twice daily for 2 d ays, then 1 tablet once daily for 2 days PREDNISONE 11053448779 No Longer Active Brii Larson APRN Active FLONASE 50 MCG/ACT SUSP 1 spray each nostril twice d aily for allergies and runny nose until gone FLUTICASONE PROPIONATE Active Jono Gagnon DO Active PROMETHAZINE HCL 12.5 MG TABS 1 tablet by mouth every 6 hours as needed for nausea/vomiting PROMETHAZINE HCL 80257801255 No Longe r Active Jono Gagnon DO Active CITRATE OF MAGNESIA ORAL SOLN 1 bottle today for constipation 20 07/10/15 MAGNESIUM CITRATE 15936879232 No Longer Active Jono Gagnon DO Active ZOFRAN 4 MG ORAL TABS 1 TAB PO Q 6 HRS PRN NAUSEA 2014 ONDANSETRON HCL 44294205494 No Longer Active Brii Larson APRN A ctive LOMOTIL 2.5-0.025 MG TAB 1 to 2 four times a day as needed f or diarrhea DIPHENOXYLATE-ATROPINE 21869111310 No Longer Active January Larson APRN Active AMOXICILLIN 500 MG TABS 2 tabs twice a day for 10 days AMOXICILLIN 82629255225 No Longer Active Brii Larson APRN Acti ve NEXPLANON IMPL ETONOGESTREL IMPL 92867092048 Active Rich Rosales MD Active CYCLOBENZAPRINE HCL 10 MG TABS 1/2 - 1 tablet by mouth three times daily as needed for muscle spasm/pain CYCLOBENZAPRINE HCL 56010232175 No Longer Active Arie Casper MD Active LOMOTIL 2.5-0.025 MG TABS 1 to 2 four times a day as needed for diarrhea DIPHENOXYLATE-ATROPINE 05926944635 No Longer Active Fozia Casper MD Active MACROBID 100 MG CAP 1 cap by mouth twice daily NITROFURANTOIN MONOHYD MACRO 12777910977 No Longer Active Arie Casper MD Active ZYRTEC ALLERGY 10 MG CAPS 1 po qd CETIRIZINE HCL 72016509192 No Longer Active Arie Casper MD Active AZITHROMYCIN 250 MG TABS 2 po qd x 1 day, then 1 po qd x 4 days AZITHROMYCIN 74677642876 No Longer Active Jillina Franaomi CABRERA Active PREDNISONE 20 MG TAB 2 tabs daily for 3 days, 1 t ab daily for 3 days, 1/2 tab daily for 2 days PREDNISONE 99685385631 No Longer Active Jillina Frazell RICK Active PROMETHAZINE HCL 25 MG TABS 1 four times a day as needed for vomiting PROMETHAZINE HCL 93799330317 No Longer Active Myrna Roberto MD Active BACTRIM DS 800-160 MG TABS 1 twice a day SULFAMETHOXAZOLE-TRIMETHOPRIM 77394574534 No Longer Active Myrna Roberto MD Active VICKS DAYQUIL SEVERE COLD/FLU TABS 1 tab every 6 hours prn 12/10 [id number] TABS 12153738559 No Longer Active Myrna leigh MD Active GUAIFENESIN-CODEINE 100-10 MG/5ML ORAL SYRP 2 tsp every 6 hours prn GUAIFENESIN-CODEINE 69255882805 No Longer Active Myrna Roberto MD Active NAPROXEN 500 MG TAB one tab PO BID NAPROXEN 332 66703377 No Longer Active Myrna Roberto MD Active AUGMENTIN 875-125 MG TAB 1 tab by mouth twice daily with food 20 08/12/16 AMOXICILLIN-POT CLAVULANATE 49221765616 No Longer Active Liliana Estrada MD PhD Active AMOXICILLIN 500 MG CAP 1 tab by mouth 3 times daily 08/12/16 AMOXICILLIN 75802328824 No Longer Active Liliana Estrada MD PhD Acti ve TESSALON PERLES 100 MG CAP 1 tablet by mouth 3 times daily 11/01 BENZONATATE 93906012003 No Longer Active Liliana Estrada MD PhD Active FLAGYL 500 MG TAB 1 tablet by mouth two times daily 07/11/29 METRONIDAZOLE 08342697286 No Longer Active Nilamnory Weber Active ZITHROMAX 250 MG TAB 2 po today, then 1 po q days 2-5 AZITHROMYCIN 59202469474 No Longer Active Arie Casper MD Acti ve VITAMINS 0.8 MG TABS take 1 tab po qday 08/08 [id number] 24884624278 No Longer Active Arie Casper MD Active IBUPROFEN 800 MG TABS take one po Q 8 hours IBU PROFEN 33486746809 No Longer Active Arie Casper MD Active [facility] TUSSIN COUGH/COLD CF 5-10-100 MG/5ML LIQD 2 teaspoons ev eliud 4 hours [id number] 99674084771 No Longer Active Blaine Casper MD Active COMTREX COLD/COUGH DAY/NITE MS 5-2-10-325 MG MISC 2 caps deja ry 4 hours [id number] 38617273019 No Longer Active Landon Casper MD Active CHLORASEPTIC MAX SORE THROAT 15-10 MG LOZG 1 every 2 hours prn 2 BENZOCAINE-MENTHOL 32351036963 No Longer Active Arie Marcelo Active PREDNISONE 20 MG TAB 2 tabs daily for 3 days, 1 t ab daily for 3 days, 1/2 tab daily for 2 days PREDNISONE 01451470476 No Longer Active Jose Zhong MD Active AZITHROMYCIN 250 MG TABS 2 po qd x 1 day, then 1 po qd x 4 days AZITHROMYCIN 08789601281 No Longer Active Jose Zhong MD Active ZOFRAN ODT 4 MG TBDP 1 po q6hr PRN Nausea ONDAN SETRON 82574287741 No Longer Active Rich Rosales MD Active ZOFRAN 4 MG TABS 1 tablet every 4 hours ONDANSE JERRELL HCL 54550588362 No Longer Active Rich Rosales MD Active MUCINEX 600 MG [id number] Take 1-2 tablets every 12 hours GUAIFENESIN 48941156168 No Longer Active Rich Rosales MD Activ e BACTRIM 400-80 MG TABS take one po BID SULFAMETHOXAZOLE-TRIMETHOPRIM 45205053492 No Longer Active Abelardo HERNANDEZ Active AZITHROMYCIN 500 MG TABS 1 PO q day x 6 days AZ ITHROMYCIN 49039862728 No Longer Active Tin HERNANDEZ Active ZITHROMAX 250 MG TAB 2 po today, then 1 po q days 2-5 AZITHROMYCIN 58818596980 No Longer Active Arie Casper MD Acti ve ZITHROMAX 250 MG TAB 2 po today, then 1 po q days 2-5 AZITHROMYCIN 67546118798 No Longer Active Arie Casper MD Acti ve AMOXICILLIN 500 MG CAP 1 tab by mouth 3 times daily 20 09/23/20 AMOXICILLIN 09867175089 No Longer Active Arie Casper MD Acti ve BACTRIM DS 800-160 MG TAB 1 tab by mouth twice daily 2 TRIMETHOPRIM-SULFAMETHOXAZOLE 24935699004 No Longer Active Arie Casper MD Active AMOXICILLIN 500 MG TABS take 1 tab po TID AMOXI CILLIN 30818953913 No Longer Active Arie Casper MD Active BACTRIM DS 800-160 MG TAB 1 tab by mouth twice daily 2 BACTRIM DS 800-160 MG TAB 673609 TRIMETHOPRIM-SULFAMETHOXAZOLE Inac tive MUCINEX 600 MG [id number] Take 1-2 tablets every 12 hours MUCINEX 600 MG [id number] GUAIFENESIN Inactive ZOFRAN 4 MG TABS 1 tablet every 4 hours ZOFRAN 4 MG TABS 247766 ONDANSETRON HCL Inactive ZOFRAN ODT 4 MG TBDP 1 po q6hr PRN Nausea ZOFRAN ODT 4 MG TBDP 002147 ONDANSETRON Inactive CHLORASEPTIC MAX SORE THROAT 15-10 MG LOZG 1 every 2 hours prn 2 CHLORASEPTIC MAX SORE THROAT 15-10 MG LOZG BENZO ARINA-MENTHOL Inactive COMTREX COLD/COUGH DAY/NITE MS 5-2-10-325 MG MISC 2 caps deja ry 4 hours COMTREX COLD/COUGH DAY/NITE MS 5-2-10-325 MG MIS C [id number] Inactive [facility] TUSSIN COUGH/COLD CF 5-10-100 MG/5ML LIQD 2 teaspoons ev eliud 4 hours [facility] TUSSIN COUGH/COLD CF 5-10-100 MG/5ML LIQD [id number] Inactive IBUPROFEN 800 MG TABS take one po Q 8 hours IBUPROFEN 800 MG TABS IBUPROFEN Inactive VITAMINS 0.8 MG TABS take 1 tab po qday 08/08 VITAMINS 0.8 MG TABS [id number] Inactive TESSALON PERLES 100 MG CAP 1 tablet by mouth 3 times daily 11/01 TESSALON PERLES 100 MG CAP 755221 BENZONATATE Inact zaid AMOXICILLIN 500 MG CAP 1 tab by mouth 3 times daily 08/12/16 AMOXICILLIN 500 MG CAP 589293 AMOXICILLIN Inactive GUAIFENESIN-CODEINE 100-10 MG/5ML ORAL SYRP 2 tsp every 6 hours prn GUAIFENESIN-CODEINE 100-10 MG/5ML ORAL SYRP 462871 GUAIFENESIN-CODEINE Inactive VICKS DAYQUIL SEVERE COLD/FLU TABS 1 tab every 6 hours prn 12/10 VICKS DAYQUIL SEVERE COLD/FLU TABS PHENYLEPHRINE -DM-GG-APAP TABS Inactive BACTRIM DS 800-160 MG TABS 1 twice a day BACTRIM DS 800- 160 MG TABS 101590 SULFAMETHOXAZOLE-TRIMETHOPRIM Inactive PROMETHAZINE HCL 25 MG TABS 1 four times a day as needed for vomiting PROMETHAZINE HCL 25 MG TABS 680816 PROMETHAZINE HCL Inactive ZYRTEC ALLERGY 10 MG CAPS 1 po qd ZY RTEC ALLERGY 10 MG CAPS CETIRIZINE HCL Inactive MACROBID 100 MG CAP 1 cap by mouth twice daily MACROBID 100 MG CAP 5697697 NITROFURANTOIN MONOHYD MACRO Inactive LOMOTIL 2.5-0.025 MG TABS 1 to 2 four times a day as needed for diarrhea LOMOTIL 2.5-0.025 MG TABS 8156364 DIPHENOXYLATE-A TROPINE Inactive CYCLOBENZAPRINE HCL 10 MG TABS 1/2 - 1 tablet by mouth three times daily as needed for muscle spasm/pain CYCLOBENZAP RINE HCL 10 MG TABS 130367 CYCLOBENZAPRINE HCL Inactive AMOXICILLIN 500 MG TABS 2 tabs twice a day for 10 days AMOXICILLIN 500 MG TABS 394709 AMOXICILLIN Inactive LOMOTIL 2.5-0.025 MG TAB 1 to 2 four times a day as needed f or diarrhea LOMOTIL 2.5-0.025 MG TAB 4289738 DIPHENOXYLATE-AT ROPINE Inactive ZOFRAN 4 MG ORAL TABS 1 TAB PO Q 6 HRS PRN NAUSEA 2014 ZOFRAN 4 MG ORAL TABS 858003 ONDANSETRON HCL Inactive CITRATE OF MAGNESIA ORAL SOLN 1 bottle today for constipation 20 07/10/15 CITRATE OF MAGNESIA ORAL SOLN 3282715 MAGNESIUM CITRATE Inactive PROMETHAZINE HCL 12.5 MG TABS 1 tablet by mouth every 6 hours as needed for nausea/vomiting PROMETHAZINE HCL 12.5 MG TABS 237723 PROMETHAZINE HCL Inactive PREDNISONE 20 MG TAB 1 tablet twice daily for 2 d ays, then 1 tablet once daily for 2 days PREDNISONE 20 MG TAB 631282 PREDNISONE Inac tive AMOXICILLIN 500 MG TABS take 1 tab po TID AMOXICILLIN 500 MG TABS 391024 AMOXICILLIN Inactive AMOXICILLIN 500 MG CAP 1 tab by mouth 3 times daily 09/23/20 AMOXICILLIN 500 MG CAP 348219 AMOXICILLIN Inactive ZITHROMAX 250 MG TAB 2 po today, then 1 po q days 2-5 ZITHROMAX 250 MG TAB 5929539 AZITHROMYCIN Inactive ZITHROMAX 250 MG TAB 2 po today, then 1 po q days 2-5 ZITHROMAX 250 MG TAB 1619423 AZITHROMYCIN Inactive AZITHROMYCIN 500 MG TABS 1 PO q day x 6 days 3 AZITHROMYCIN 500 MG TABS 8372708 AZITHROMYCIN Inactive BACTRIM 400-80 MG TABS take one po BID BA CTRIM 400-80 MG TABS 485491 SULFAMETHOXAZOLE-TRIMETHOPRIM Inactive AZITHROMYCIN 250 MG TABS 2 po qd x 1 day, then 1 po qd x 4 days AZITHROMYCIN 250 MG TABS 4081164 AZITHROMYCIN Inactiv e PREDNISONE 20 MG TAB 2 tabs daily for 3 days, 1 t ab daily for 3 days, 1/2 tab daily for 2 days PREDNISONE 20 MG TAB 329461 PREDNISON E Inactive ZITHROMAX 250 MG TAB 2 po today, then 1 po q days 2-5 ZITHROMAX 250 MG TAB 8678504 AZITHROMYCIN Inactive FLAGYL 500 MG TAB 1 tablet by mouth two times daily 07/11/29 FLAGYL 500 MG TAB 425333 METRONIDAZOLE Inactive AUGMENTIN 875-125 MG TAB 1 tab by mouth twice daily with food 20 08/12/16 AUGMENTIN 875-125 MG TAB 961180 AMOXICILLIN-POT CLAVULA ANGELO Inactive NAPROXEN 500 MG TAB one tab PO BID NAPROXEN 500 MG TAB 799157 NAPROXEN Inactive PREDNISONE 20 MG TAB 2 tabs daily for 3 days, 1 t ab daily for 3 days, 1/2 tab daily for 2 days PREDNISONE 20 MG TAB 635762 PREDNISON E Inactive AZITHROMYCIN 250 MG TABS 2 po qd x 1 day, then 1 po qd x 4 days AZITHROMYCIN 250 MG TABS 7710815 AZITHROMYCIN Inactiv e PREDNISONE 20 MG TAB 2 tabs daily for 3 days, 1 t ab daily for 3 days, 1/2 tab daily for 2 days PREDNISONE 20 MG TAB 982894 PREDNISON E Inactive Advance Directives Directive Description [...] Panel - Chemistry sodium, serum 136 mmol/L 432-348 2420/04/26 carbon dioxide, venous blood 29.9 mmol/L 21.0-32 [...] 284 10^3/MM^3 10*3/mm3 142-424 Lab Report: Chlamydia/GC APTIMA/[id number] - Lab chlamydia DNA probe NOT DETECTED NOT DETECTED Lab Report: Chlamydia/GC APTIMA/[id number] - Microbiology Neisseria gonorrhoeae DNA probe NOT DETECTED NO T DETECTED Lab Report: Comp. Metabolic Panel - Chem istry sodium, serum 139 mmol/L 412-674 1908/12/15 carbon dioxide, venous blood 30.2 mmol/L 21.0-32 .0 potassium, serum 3.4 mmol/L 3.5-5.2 chloride, serum 101 mmol/L 98-107 blood glucose 92 mg/dL 65-110 urea nitrogen, blood 5 mg/dL 7-18 creatinine, serum 0.81 mg/dL 0.55-1.30 alanine aminotransferase (SGPT), serum 20 U/L 12-78 aspartate aminotransferase (SGOT), serum 10 U/L 15-37 calcium, serum 8.4 mg/dL 8.5-10.1 bilirubin, serum, total 0.60 mg/dL 0.00-1.00 Lab Report: HIV-1/2 Agn/Darcy/15601, HEPAT ITIS PANEL, ACUTE W/REFLE - Chemistry [...] Negative Encounters Code Encounter Date Provider Facility CPT-77189 Level 3 Est. Patient 16:40:54 CDT Jose Zhong MD [facility] CPT-16312 Level 2 Est. Patient 13:01:13 CDT Steve RAT EXTERMINATOR [facility] CPT-37531 Level 3 Est. Patient 11:55:30 PRODUCTION SANITIZER Jono black DO [facility] CPT-40658 Level 3 Est. Patient 09:52:36 PRODUCTION SANITIZER Steve RAT EXTERMINATOR [facility] CPT-96265 Level 3 Est. Patient 16:25:33 PRODUCTION SANITIZER Rich Rosales MD [facility] CPT-72679 Level 3 Est. Patient 20:33:55 CDT Arie mcqueen MD [facility] CPT-89120 Level 3 Est. Patient 14:18:20 CDT Rich Rosales MD [facility] CPT-77591 Level 4 Est. Patient 09:34:31 CDT Arie mcqueen MD [facility] CPT-13763 Level 3 Est. Patient 09:08:55 PRODUCTION SANITIZER Liliana vincent MD PhD [facility] CPT-44596 Level 3 Est. Patient 16:44:07 PRODUCTION SANITIZER Arie mcqueen MD [facility] CPT-66731 Level 3 Est. Patient 10:44:27 CDT Arie mcqueen MD [facility] CPT-98947 Level 3 Est. Patient 08:55:41 CDT Jose Zhong MD [facility] CPT-94461 Level 3 Est. Patient 18:37:31 CDT Liliana vincent MD [facility] CPT-97484 Level 3 Est. Patient 14:28:23 CDT Abelardo HERNANDEZ [facility] CPT-19197 Level 3 Est. Patient 15:18:13 PRODUCTION SANITIZER Arie mcqueen MD [facility] CPT-78731 Level 3 Est. Patient 10:11:29 PRODUCTION SANITIZER Arie mcqueen MD [facility] CPT-88479 Level 3 Est. Patient 10:55:57 PRODUCTION SANITIZER Jono black DO [facility] CPT-07904 Level 3 Est. Patient 17:29:05 CDT Arie mcqueen MD [facility] Procedures Code Procedure Name Date Entry Date Standard Desc ription CPT-27651 Abd compl w upright 09:07:26 PRODUCTION SANITIZER CPT-43965 Ear Wash 16:12:47 PRODUCTION SANITIZER CPT-OV Office Visit 11:12:01 CDT CPT-OV Office Visit 15:30:23 CDT CPT-98671 Sono pelvis non OB uterus ovaries cervix 15:50:44 CDT CPT-42996 Hand comp min 3V 16:42:32 CDT CPT-81474 Abd compl w upright 12:17:01 CDT CPT-36297 Nexplanon Placement 15:07:39 PRODUCTION SANITIZER CPT-29230 Removal of IUD 15:07:39 PRODUCTION SANITIZER CPT-95608 TB Tubersol 12:09:32 CDT CPT-46049 TB Tubersol 13:55:43 CDT
--- OUTSIDE RECORDS SUMMARY | 2020-03-03 08:32 | XMS REPORT | Clinical Summary ---
Author Author Admin, Diamante Marcelo Organization [facility] Address Unknown Phone Unavailable Allergies, [...] cute pharyngitis Nausea 787.02 Active Brii Larson SLOT KEY PERSON Nausea alone URI 465.9 Active Jono Gagnon [...] Anxiety with depression 300.4 Active Glenn Larson SLOT KEY PERSON Dysthymic disorder URI 465.9 Active Jono Gagnon [...] a day as needed for diarrhea DIPHENOXYLATE-ATROPINE 86429497365 No Longer Active Fozia Casper MD Active ZOLOFT 50 MG TAB 1 tablet by mouth daily SERTRA LINE HCL 09253451473 No Longer Active Arie Casper MD Active NAPROXEN 500 MG TAB Take 1 tab BID NAPROXEN 332 01679787 No Longer Active Arie Casper MD Active NEXPLANON IMPL Left arm subcutaneously ETONOGES TREL IMPL 50471605927 Active Brii Larson APRN Active CEFDINIR 300 MG CAPS 1 po BID x 10 days CEFDINI R 64903181475 No Longer Active Brii Larson APRN Active PREDNISONE 20 MG TAB 1 tablet daily for airway inflammation 2015 PREDNISONE 40691421298 No Longer Active Brii Larson APRN Active CEFDINIR 300 MG CAPS 1 po BID x 10 days CEFDINI R 82701390054 No Longer Active Jono Gagnon DO Active FLONASE 50 MCG/ACT SUSP 1 spray each nostril twice d aily for allergies and runny nose until gone FLUTICASONE PROPIONATE No Longe r Active Jono Gagnon DO Active ALPRAZOLAM 0.25 MG TAB 1 tablet by mouth every 8 hours as ne eded for stress ALPRAZOLAM 83263797047 No Longer Active Jono Gagnon DO Active ZITHROMAX Z-EMIL 250 MG TABS 2 today, then 1 daily for 4 days 201 03/31/18 AZITHROMYCIN 22689480961 No Longer Active Arie Casper MD Active PROTONIX 40 MG ORAL TBEC 1 po q a.m. PANTOPRAZO LE SODIUM 89367903040 Active Arie Casper MD Active PREDNISONE 20 MG TAB 2 tabs daily for 3 days, 1 t ab daily for 3 days, 1/2 tab daily for 2 days PREDNISONE 64633972642 No Longer Active Brii Larson APRN Active PREDNISONE 20 MG TAB 1 tablet twice daily for 2 d ays, then 1 tablet once daily for 2 days PREDNISONE 50135165198 No Longer Active Brii Larson APRN Active PROMETHAZINE HCL 12.5 MG TABS 1 tablet by mouth every 6 hours as needed for nausea/vomiting PROMETHAZINE HCL 41299705196 No Longe r Active Jono Gagnon DO Active CITRATE OF MAGNESIA ORAL SOLN 1 bottle today for constipation 20 07/10/15 MAGNESIUM CITRATE 66592845563 No Longer Active Jono Gagnon DO Active ZOFRAN 4 MG ORAL TABS 1 TAB PO Q 6 HRS PRN NAUSEA 2014 ONDANSETRON HCL 28956289701 No Longer Active rBii Larson APRN A ctive LOMOTIL 2.5-0.025 MG TAB 1 to 2 four times a day as needed f or diarrhea DIPHENOXYLATE-ATROPINE 04101926157 No Longer Active January Larson APRN Active AMOXICILLIN 500 MG TABS 2 tabs twice a day for 10 days AMOXICILLIN 40218076298 No Longer Active Brii Larson APRN Acti ve CYCLOBENZAPRINE HCL 10 MG TABS 1/2 - 1 tablet by mouth three times daily as needed for muscle spasm/pain CYCLOBENZAPRINE HCL 79271349523 No Longer Active Arie Casper MD Active LOMOTIL 2.5-0.025 MG TABS 1 to 2 four times a day as needed for diarrhea DIPHENOXYLATE-ATROPINE 78373505551 No Longer Active D freddy Casper MD Active MACROBID 100 MG CAP 1 cap by mouth twice daily NITROFURANTOIN MONOHYD MACRO 13389648378 No Longer Active Arie Casper MD Active ZYRTEC ALLERGY 10 MG CAPS 1 po qd CETIRIZINE HCL 97457466027 No Longer Active Arie Casper MD Active AZITHROMYCIN 250 MG TABS 2 po qd x 1 day, then 1 po qd x 4 days AZITHROMYCIN 35420612653 No Longer Active Jessica Heaton APRN Active PREDNISONE 20 MG TAB 2 tabs daily for 3 days, 1 t ab daily for 3 days, 1/2 tab daily for 2 days PREDNISONE 28451774505 No Longer Active Jessica Heaton APRN Active PROMETHAZINE HCL 25 MG TABS 1 four times a day as needed for vomiting PROMETHAZINE HCL 41568016741 No Longer Active Myrna Roberto MD Active BACTRIM DS 800-160 MG TABS 1 twice a day SULFAMETHOXAZOLE-TRIMETHOPRIM 37186541242 No Longer Active Myrna Roberto MD Active VICKS DAYQUIL SEVERE COLD/FLU TABS 1 tab every 6 hours prn 12/10 [id number]-APAP TABS 28573219593 No Longer Active Myrna leigh MD Active GUAIFENESIN-CODEINE 100-10 MG/5ML ORAL SYRP 2 tsp every 6 hours prn GUAIFENESIN-CODEINE 77611259700 No Longer Active Myrna Roberto MD Active NAPROXEN 500 MG TAB one tab PO BID NAPROXEN 332 26643534 No Longer Active Myrna Roberto MD Active AUGMENTIN 875-125 MG TAB 1 tab by mouth twice daily with food 08/12/16 AMOXICILLIN-POT CLAVULANATE 41350785269 No Longer Active Liliana Estrada MD PhD Active AMOXICILLIN 500 MG CAP 1 tab by mouth 3 times daily 08/12/16 AMOXICILLIN 19796460246 No Longer Active Liliana Estrada MD PhD Acti ve TESSALON PERLES 100 MG CAP 1 tablet by mouth 3 times daily 11/01 BENZONATATE 52593507077 No Longer Active Liliana Estrada MD PhD Active FLAGYL 500 MG TAB 1 tablet by mouth two times daily 07/11/29 METRONIDAZOLE 14195460507 No Longer Active Nilam Raida Active ZITHROMAX 250 MG TAB 2 po today, then 1 po q days 2-5 AZITHROMYCIN 43803131179 No Longer Active Arie Casper MD Acti ve VITAMINS 0.8 MG TABS take 1 tab po qday 08/08 [id number] 98144390901 No Longer Active Arie Casper MD Active IBUPROFEN 800 MG TABS take one po Q 8 hours IBU PROFEN 16355871302 No Longer Active Arie Casper MD Active [facility] TUSSIN COUGH/COLD CF 5-10-100 MG/5ML LIQD 2 teaspoons ev eliud 4 hours [id number] 49351638189 No Longer Active Blaine Casper MD Active COMTREX COLD/COUGH DAY/NITE MS 5-2-10-325 MG MISC 2 caps deja ry 4 hours [id number]-APAP 92168169267 No Longer Active Da aleksandra Casper MD Active CHLORASEPTIC MAX SORE THROAT 15-10 MG LOZG 1 every 2 hours prn 2 BENZOCAINE-MENTHOL 90915444189 No Longer Active Arie Marcelo Active PREDNISONE 20 MG TAB 2 tabs daily for 3 days, 1 t ab daily for 3 days, 1/2 tab daily for 2 days PREDNISONE 26265975259 No Longer Active Jose Zhong MD Active AZITHROMYCIN 250 MG TABS 2 po qd x 1 day, then 1 po qd x 4 days AZITHROMYCIN 97366296421 No Longer Active Jose Zhong MD Active ZOFRAN ODT 4 MG TBDP 1 po q6hr PRN Nausea ONDAN SETRON 24030966144 No Longer Active Rich Rosales MD Active ZOFRAN 4 MG TABS 1 tablet every 4 hours ONDANSE JERRELL HCL 06588726063 No Longer Active Rich Rosales MD Active MUCINEX 600 MG [id number] Take 1-2 tablets every 12 hours GUAIFENESIN 94463766762 No Longer Active Rich Rosales MD Activ e BACTRIM 400-80 MG TABS take one po BID SULFAMETHOXAZOLE-TRIMETHOPRIM 91153818733 No Longer Active Abelardo HERNANDEZ Active AZITHROMYCIN 500 MG TABS 1 PO q day x 6 days AZ ITHROMYCIN 78160327771 No Longer Active Tin HERNANDEZ Active ZITHROMAX 250 MG TAB 2 po today, then 1 po q days 2-5 AZITHROMYCIN 88529110838 No Longer Active Arie Casper MD Acti ve ZITHROMAX 250 MG TAB 2 po today, then 1 po q days 2-5 AZITHROMYCIN 05126553654 No Longer Active Arie Casper MD Acti ve AMOXICILLIN 500 MG CAP 1 tab by mouth 3 times daily 20 09/23/20 AMOXICILLIN 00414941839 No Longer Active Arie Casper MD Acti ve BACTRIM DS 800-160 MG TAB 1 tab by mouth twice daily 2 TRIMETHOPRIM-SULFAMETHOXAZOLE 31698319182 No Longer Active Arie Casper MD Active AMOXICILLIN 500 MG TABS take 1 tab po TID AMOXI CILLIN 00050713479 No Longer Active Arie Casper MD Active BACTRIM DS 800-160 MG TAB 1 tab by mouth twice daily 2 BACTRIM DS 800-160 MG TAB 123635 TRIMETHOPRIM-SULFAMETHOXAZOLE Inac tive MUCINEX 600 MG [id number] Take 1-2 tablets every 12 hours MUCINEX 600 MG [id number] GUAIFENESIN Inactive ZOFRAN 4 MG TABS 1 tablet every 4 hours ZOFRAN 4 MG TABS 581832 ONDANSETRON HCL Inactive ZOFRAN ODT 4 MG TBDP 1 po q6hr PRN Nausea ZOFRAN ODT 4 MG TBDP 956489 ONDANSETRON Inactive CHLORASEPTIC MAX SORE THROAT 15-10 MG LOZG 1 every 2 hours prn 2 /04/30 CHLORASEPTIC MAX SORE THROAT 15-10 MG LOZG BENZO ARINA-MENTHOL Inactive COMTREX COLD/COUGH DAY/NITE MS 5-2-10-325 MG MISC 2 caps deja ry 4 hours COMTREX COLD/COUGH DAY/NITE MS 5-2-10-325 MG MIS C [id number] Inactive [facility] TUSSIN COUGH/COLD CF 5-10-100 MG/5ML LIQD 2 teaspoons ev eliud 4 hours [facility] TUSSIN COUGH/COLD CF 5-10-100 MG/5ML LIQD [id number] Inactive IBUPROFEN 800 MG TABS take one po Q 8 hours IBUPROFEN 800 MG TABS IBUPROFEN Inactive VITAMINS 0.8 MG TABS take 1 tab po qday 08/08 VITAMINS 0.8 MG TABS [id number] Inactive TESSALON PERLES 100 MG CAP 1 tablet by mouth 3 times daily 11/01 TESSALON PERLES 100 MG CAP 083159 BENZONATATE Inact zaid AMOXICILLIN 500 MG CAP 1 tab by mouth 3 times daily 08/12/16 AMOXICILLIN 500 MG CAP 781798 AMOXICILLIN Inactive GUAIFENESIN-CODEINE 100-10 MG/5ML ORAL SYRP 2 tsp every 6 hours prn GUAIFENESIN-CODEINE 100-10 MG/5ML ORAL SYRP 137235 GUAIFENESIN-CODEINE Inactive VICKS DAYQUIL SEVERE COLD/FLU TABS 1 tab every 6 hours prn 12/10 VICKS DAYQUIL SEVERE COLD/FLU TABS PHENYLEPHRINE -DM-GG-APAP TABS Inactive BACTRIM DS 800-160 MG TABS 1 twice a day BACTRIM DS 800- 160 MG TABS 626156 SULFAMETHOXAZOLE-TRIMETHOPRIM Inactive PROMETHAZINE HCL 25 MG TABS 1 four times a day as needed for vomiting PROMETHAZINE HCL 25 MG TABS 928168 PROMETHAZINE HCL Inactive ZYRTEC ALLERGY 10 MG CAPS 1 po qd ZY RTEC ALLERGY 10 MG CAPS CETIRIZINE HCL Inactive MACROBID 100 MG CAP 1 cap by mouth twice daily MACROBID 100 MG CAP 2311369 NITROFURANTOIN MONOHYD MACRO Inactive LOMOTIL 2.5-0.025 MG TABS 1 to 2 four times a day as needed for diarrhea LOMOTIL 2.5-0.025 MG TABS 4634851 DIPHENOXYLATE-A TROPINE Inactive CYCLOBENZAPRINE HCL 10 MG TABS 1/2 - 1 tablet by mouth three times daily as needed for muscle spasm/pain CYCLOBENZAP RINE HCL 10 MG TABS 455277 CYCLOBENZAPRINE HCL Inactive AMOXICILLIN 500 MG TABS 2 tabs twice a day for 10 days AMOXICILLIN 500 MG TABS 722311 AMOXICILLIN Inactive LOMOTIL 2.5-0.025 MG TAB 1 to 2 four times a day as needed f or diarrhea LOMOTIL 2.5-0.025 MG TAB 3662387 DIPHENOXYLATE-AT ROPINE Inactive ZOFRAN 4 MG ORAL TABS 1 TAB PO Q 6 HRS PRN NAUSEA 2014 ZOFRAN 4 MG ORAL TABS 600658 ONDANSETRON HCL Inactive CITRATE OF MAGNESIA ORAL SOLN 1 bottle today for constipation 20 07/10/15 CITRATE OF MAGNESIA ORAL SOLN 5884473 MAGNESIUM CITRATE Inactive PROMETHAZINE HCL 12.5 MG TABS 1 tablet by mouth every 6 hours as needed for nausea/vomiting PROMETHAZINE HCL 12.5 MG TABS 557589 PROMETHAZINE HCL Inactive PREDNISONE 20 MG TAB 1 tablet twice daily for 2 d ays, then 1 tablet once daily for 2 days PREDNISONE 20 MG TAB 853814 PREDNISONE Inac tive ALPRAZOLAM 0.25 MG TAB 1 tablet by mouth every 8 hours as ne eded for stress ALPRAZOLAM 0.25 MG TAB 703410 ALPRAZOLAM Inact zaid FLONASE 50 MCG/ACT SUSP 1 spray each nostril twice d aily for allergies and runny nose until gone FLONASE 50 MCG/ACT SUSP F LUTICASONE PROPIONATE Inactive PREDNISONE 20 MG TAB 1 tablet daily for airway inflammation 2015 PREDNISONE 20 MG TAB 634680 PREDNISONE Inactive NAPROXEN 500 MG TAB Take 1 tab BID NAPROXEN 500 MG TAB 242920 NAPROXEN Inactive ZOLOFT 50 MG TAB 1 tablet by mouth daily ZOLOFT 50 MG TAB 414792 SERTRALINE HCL Inactive LOMOTIL 2.5-0.025 MG TAB 1 tab po four times a day as needed for diarrhea LOMOTIL 2.5-0.025 MG TAB 2231136 DIPHENOXYLATE-AT ROPINE Inactive AMOXICILLIN 500 MG TABS take 1 tab po TID AMOXICILLIN 500 MG TABS 318131 AMOXICILLIN Inactive AMOXICILLIN 500 MG CAP 1 tab by mouth 3 times daily 09/23/20 AMOXICILLIN 500 MG CAP 803375 AMOXICILLIN Inactive ZITHROMAX 250 MG TAB 2 po today, then 1 po q days 2-5 ZITHROMAX 250 MG TAB 2619002 AZITHROMYCIN Inactive ZITHROMAX 250 MG TAB 2 po today, then 1 po q days 2-5 ZITHROMAX 250 MG TAB 3924574 AZITHROMYCIN Inactive AZITHROMYCIN 500 MG TABS 1 PO q day x 6 days 3 AZITHROMYCIN 500 MG TABS 0040763 AZITHROMYCIN Inactive BACTRIM 400-80 MG TABS take one po BID BA CTRIM 400-80 MG TABS 914889 SULFAMETHOXAZOLE-TRIMETHOPRIM Inactive AZITHROMYCIN 250 MG TABS 2 po qd x 1 day, then 1 po qd x 4 days AZITHROMYCIN 250 MG TABS 2624947 AZITHROMYCIN Inactiv e PREDNISONE 20 MG TAB 2 tabs daily for 3 days, 1 t ab daily for 3 days, 1/2 tab daily for 2 days PREDNISONE 20 MG TAB 626740 PREDNISON E Inactive ZITHROMAX 250 MG TAB 2 po today, then 1 po q days 2-5 ZITHROMAX 250 MG TAB 6831527 AZITHROMYCIN Inactive FLAGYL 500 MG TAB 1 tablet by mouth two times daily 07/11/29 FLAGYL 500 MG TAB 706907 METRONIDAZOLE Inactive AUGMENTIN 875-125 MG TAB 1 tab by mouth twice daily with food 20 08/12/16 AUGMENTIN 875-125 MG TAB 414950 AMOXICILLIN-POT CLAVULA ANGELO Inactive NAPROXEN 500 MG TAB one tab PO BID NAPROXEN 500 MG TAB 041083 NAPROXEN Inactive PREDNISONE 20 MG TAB 2 tabs daily for 3 days, 1 t ab daily for 3 days, 1/2 tab daily for 2 days PREDNISONE 20 MG TAB 338080 PREDNISON E Inactive AZITHROMYCIN 250 MG TABS 2 po qd x 1 day, then 1 po qd x 4 days AZITHROMYCIN 250 MG TABS 7283728 AZITHROMYCIN Inactiv e PREDNISONE 20 MG TAB 2 tabs daily for 3 days, 1 t ab daily for 3 days, 1/2 tab daily for 2 days PREDNISONE 20 MG TAB 208632 PREDNISON E Inactive ZITHROMAX Z-EMIL 250 MG TABS 2 today, then 1 daily for 4 days 201 03/31/18 ZITHROMAX Z-EMIL 250 MG TABS 9518628 AZITHROMYCIN Inac tive CEFDINIR 300 MG CAPS 1 po BID x 10 days C EFDINIR 300 MG CAPS 224247 CEFDINIR Inactive CEFDINIR 300 MG CAPS 1 po BID x 10 days C EFDINIR 300 MG CAPS 991045 CEFDINIR Inactive Advance Directives Directive Description Start [...] Panel - Chemistry sodium, serum 136 mmol/L 144-490 3990/04/26 carbon dioxide, venous blood 29.9 mmol/L 21.0-32 [...] Negative Encounters Code Encounter Date Provider Facility CPT-68223 Level 4 Est. Patient 15:29:22 MARKETING REPRESENTATIVE Arie mcqueen MD [facility] CPT-16231 Level 3 Est. Patient 15:18:16 MARKETING REPRESENTATIVE Jono black [facility]-22751 Level 4 Est. Patient 12:08:40 MARKETING REPRESENTATIVE Steve SLOT KEY PERSON [facility]-79526 Level 3 Est. Patient 09:24:42 CDT Steve [facility]-06336 Level 3 Est. Patient 09:12:56 CDT Arie mcqueen MD [facility]-35142 Level 3 Est. Patient 16:40:54 CDT Jose Zhong MD [facility] CPT-69646 Level 2 Est. Patient 13:01:13 CDT Steve [facility]-51318 Level 3 Est. Patient 11:55:30 MARKETING REPRESENTATIVE Jono black [facility]-11302 Level 3 Est. Patient 09:52:36 MARKETING REPRESENTATIVE Steve SLOT KEY PERSON [facility] CPT-71095 Level 3 Est. Patient 16:25:33 MARKETING REPRESENTATIVE Rich Rosales MD [facility] CPT-79577 Level 3 Est. Patient 20:33:55 CDT Arie mcqueen MD [facility] CPT-47813 Level 3 Est. Patient 14:18:20 CDT Rich Rosales MD [facility] CPT-55784 Level 4 Est. Patient 09:34:31 CDT Arie mcqueen MD [facility] CPT-49609 Level 3 Est. Patient 09:08:55 MARKETING REPRESENTATIVE Liliana vincent MD PhD [facility] CPT-11185 Level 3 Est. Patient 16:44:07 MARKETING REPRESENTATIVE Arie mcqueen MD [facility] CPT-57824 Level 3 Est. Patient 10:44:27 CDT Arie mcqueen MD [facility] CPT-36542 Level 3 Est. Patient 08:55:41 CDT Jose Zhong MD [facility] CPT-43592 Level 3 Est. Patient 18:37:31 CDT Liliana vincent MD PhD [facility] CPT-33334 Level 3 Est. Patient 14:28:23 CDT Abelardo HERNANDEZ [facility] CPT-45485 Level 3 Est. Patient 15:18:13 MARKETING REPRESENTATIVE Arie mcqueen MD [facility] CPT-47727 Level 3 Est. Patient 10:11:29 MARKETING REPRESENTATIVE Arie mcqueen MD [facility] CPT-48595 Level 3 Est. Patient 10:55:57 MARKETING REPRESENTATIVE Jono black DO [facility] CPT-57744 Level 3 Est. Patient 17:29:05 CDT Arie mcqueen MD [facility] Procedures Code Procedure Name Date Entry Date Standard Desc ription CPT-06071 Sono transvag pelvis non OB uterus ovari es cervix - XRAY USE ONLY 08:58:14 MARKETING REPRESENTATIVE CPT-61910 UA w micro - LAB USE ONLY 16:04:56 MARKETING REPRESENTATIVE 2015 CPT-93272 Wet Prep/GEN - LAB USE ONLY 16:04:56 MARKETING REPRESENTATIVE 20 08/10/29 CPT-10768 First Vx - Ix admin via ID I M or jet injects without counseling by physician 16:57:10 CDT CPT-50457 Fluzone Preservative Free Intramuscular Suspension 16:57:10 CDT CPT-J0696 Rocephin 1000 mg (Ceftriaxone) 11:49:23 CDT CPT-J1040 Depo Medrol 80 mg (Methyl Prednisolone A cetate) 11:49:23 CDT CPT-J1100 Decadron 8mg (Dexamethasone) 11:49:23 CDT 2 CPT-32235 Abx/Therapy Injection 11:49:23 CDT CPT-23103 Abx/Therapy Injection 11:49:23 CDT CPT-86873 Abd compl w upright 09:07:26 MARKETING REPRESENTATIVE CPT-53750 Ear Wash 16:12:47 MARKETING REPRESENTATIVE CPT-OV Office Visit 11:12:01 CDT CPT-OV Office Visit 15:30:23 CDT CPT-74142 Sono pelvis non OB uterus ovaries cervix 15:50:44 CDT CPT-86831 Hand comp min 3V 16:42:32 CDT CPT-00518 Abd compl w upright 12:17:01 CDT CPT-11977 Nexplanon Placement 15:07:39 MARKETING REPRESENTATIVE CPT-69511 Removal of IUD 15:07:39 MARKETING REPRESENTATIVE CPT-99206 TB Tubersol 12:09:32 CDT CPT-71878 TB Tubersol 13:55:43 CDT
--- OUTSIDE RECORDS SUMMARY | 2020-03-03 08:33 | XMS REPORT | Clinical Summary ---
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 Urinary frequency Sinusitis - acute 461.9 Active Brii Christianson PRN Acute sinusitis, unspecified Anxiety with depression 300.4 Active 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 [employer] Dysthymic disorder URI 465.9 Active Jono Gagnon [...] 1/2 tab daily for 2 days PREDNISONE 36378519122 No Longer Active Arie Casper MD Active TUSSIONEX PENNKINETIC ER 10-8 MG/5ML LQCR 5ml po q12hr PRN Cough 20 07/02/19 HYDROCOD POLST-CHLORPHEN POLST 99032627705 Active Arie Casper MD Active CETIRIZINE HCL 10 MG ORAL TABS 1 po qd PRN Allergies CETIRIZINE HCL 67973402152 Active Arie Casper MD Active NEXPLANON IMPL right arm subcutaneously ETONOGE STREL IMPL 93689370788 Active Arie Casper MD Active LOMOTIL 2.5-0.025 MG TAB 1 tab po four times a day as needed for diarrhea DIPHENOXYLATE-ATROPINE 08949930840 No Longer Active Fozia Casper MD Active ZOLOFT 50 MG TAB 1 tablet by mouth daily SERTRA LINE HCL 34101198301 No Longer Active Arie Casper MD Active NAPROXEN 500 MG TAB Take 1 tab BID NAPROXEN 332 52641317 No Longer Active Arie Casper MD Active CEFDINIR 300 MG CAPS 1 po BID x 10 days CEFDINI R 64882808557 No Longer Active Brii Larson APRN Active PREDNISONE 20 MG TAB 1 tablet daily for airway inflammation 2015 PREDNISONE 26729703856 No Longer Active Brii Larson APRN Active CEFDINIR 300 MG CAPS 1 po BID x 10 days CEFDINI R 60605485400 No Longer Active Jono Gagnon DO Active FLONASE 50 MCG/ACT SUSP 1 spray each nostril twice d aily for allergies and runny nose until gone FLUTICASONE PROPIONATE No Longe r Active Jono Gagnon DO Active ALPRAZOLAM 0.25 MG TAB 1 tablet by mouth every 8 hours as ne eded for stress ALPRAZOLAM 29418988555 No Longer Active Jono Gagnon DO Active ZITHROMAX Z-EMIL 250 MG TABS 2 today, then 1 daily for 4 days 201 03/31/18 AZITHROMYCIN 80399479121 No Longer Active Arie Casper MD Active PROTONIX 40 MG ORAL TBEC 1 po q a.m. PANTOPRAZO LE SODIUM 97403496017 Active Arie Casper MD Active PREDNISONE 20 MG TAB 2 tabs daily for 3 days, 1 t ab daily for 3 days, 1/2 tab daily for 2 days PREDNISONE 30005644894 No Longer Active Brii Larson APRN Active PREDNISONE 20 MG TAB 1 tablet twice daily for 2 d ays, then 1 tablet once daily for 2 days PREDNISONE 50949264371 No Longer Active Brii Larson APRN Active PROMETHAZINE HCL 12.5 MG TABS 1 tablet by mouth every 6 hours as needed for nausea/vomiting PROMETHAZINE HCL 48479020992 No Longe r Active Jono Gagnon DO Active CITRATE OF MAGNESIA ORAL SOLN 1 bottle today for constipation 20 07/10/15 MAGNESIUM CITRATE 49842471821 No Longer Active Jono Gagnon DO Active ZOFRAN 4 MG ORAL TABS 1 TAB PO Q 6 HRS PRN NAUSEA 2014 ONDANSETRON HCL 76525135846 No Longer Active Brii Larson APRN A ctive LOMOTIL 2.5-0.025 MG TAB 1 to 2 four times a day as needed f or diarrhea DIPHENOXYLATE-ATROPINE 71759942774 No Longer Active January Larson APRN Active AMOXICILLIN 500 MG TABS 2 tabs twice a day for 10 days AMOXICILLIN 60626709180 No Longer Active Brii Larson APRN Acti ve CYCLOBENZAPRINE HCL 10 MG TABS 1/2 - 1 tablet by mouth three times daily as needed for muscle spasm/pain CYCLOBENZAPRINE HCL 39803110875 No Longer Active Arie Casper MD Active LOMOTIL 2.5-0.025 MG TABS 1 to 2 four times a day as needed for diarrhea DIPHENOXYLATE-ATROPINE 87404627462 No Longer Active D freddy Casper MD Active MACROBID 100 MG CAP 1 cap by mouth twice daily NITROFURANTOIN MONOHYD MACRO 60363616923 No Longer Active Arie Casper MD Active ZYRTEC ALLERGY 10 MG CAPS 1 po qd CETIRIZINE HCL 82175009578 No Longer Active Arie Casper MD Active AZITHROMYCIN 250 MG TABS 2 po qd x 1 day, then 1 po qd x 4 days AZITHROMYCIN 77361256332 No Longer Active Jillina Frazell MANAGER [employer] Active PREDNISONE 20 MG TAB 2 tabs daily for 3 days, 1 t ab daily for 3 days, 1/2 tab daily for 2 days PREDNISONE 69322574261 No Longer Active Jillina Frazell MANAGER [employer] Active PROMETHAZINE HCL 25 MG TABS 1 four times a day as needed for vomiting PROMETHAZINE HCL 68081135366 No Longer Active Myrna Roberto MD Active BACTRIM DS 800-160 MG TABS 1 twice a day SULFAMETHOXAZOLE-TRIMETHOPRIM 23213472342 No Longer Active Myrna Roberto MD Active VICKS DAYQUIL SEVERE COLD/FLU TABS 1 tab every 6 hours prn 12/10 [id number] TABS 79065367344 No Longer Active Myrna leigh MD Active GUAIFENESIN-CODEINE 100-10 MG/5ML ORAL SYRP 2 tsp every 6 hours prn GUAIFENESIN-CODEINE 08531561408 No Longer Active Myrna Roberto MD Active NAPROXEN 500 MG TAB one tab PO BID NAPROXEN 332 42018969 No Longer Active Myrna Roberto MD Active AUGMENTIN 875-125 MG TAB 1 tab by mouth twice daily with food 08/12/16 AMOXICILLIN-POT CLAVULANATE 88441575493 No Longer Active Liliana Estrada MD PhD Active AMOXICILLIN 500 MG CAP 1 tab by mouth 3 times daily 08/12/16 AMOXICILLIN 06294692679 No Longer Active Liliana Estrada MD PhD Acti ve TESSALON PERLES 100 MG CAP 1 tablet by mouth 3 times daily 11/01 BENZONATATE 90101772410 No Longer Active Liliana Estrada MD PhD Active FLAGYL 500 MG TAB 1 tablet by mouth two times daily 07/11/29 METRONIDAZOLE 76201075847 No Longer Active Nilam Weber Active ZITHROMAX 250 MG TAB 2 po today, then 1 po q days 2-5 AZITHROMYCIN 01420969456 No Longer Active Arie Casper MD Acti ve VITAMINS 0.8 MG TABS take 1 tab po qday 08/08 [id number] 13765155319 No Longer Active Arie Casper MD Active IBUPROFEN 800 MG TABS take one po Q 8 hours IBU PROFEN 24878258165 No Longer Active Arie Casper MD Active [facility] TUSSIN COUGH/COLD CF 5-10-100 MG/5ML LIQD 2 teaspoons ev eliud 4 hours [id number] 49818450658 No Longer Active Blaine Casper MD Active COMTREX COLD/COUGH DAY/NITE MS 5-2-10-325 MG MISC 2 caps deja ry 4 hours [id number] 80569530754 No Longer Active Landon Casper MD Active CHLORASEPTIC MAX SORE THROAT 15-10 MG LOZG 1 every 2 hours prn 2 BENZOCAINE-MENTHOL 02359681509 No Longer Active Arie Marcelo Active PREDNISONE 20 MG TAB 2 tabs daily for 3 days, 1 t ab daily for 3 days, 1/2 tab daily for 2 days PREDNISONE 16227372227 No Longer Active Jose Zhong MD Active AZITHROMYCIN 250 MG TABS 2 po qd x 1 day, then 1 po qd x 4 days AZITHROMYCIN 04617846137 No Longer Active Jose Zhong MD Active ZOFRAN ODT 4 MG TBDP 1 po q6hr PRN Nausea ONDAN SETRON 87012269650 No Longer Active Rich Rosales MD Active ZOFRAN 4 MG TABS 1 tablet every 4 hours ONDAWANDY ALLAN HCL 18430935746 No Longer Active Rich Rosales MD Active MUCINEX 600 MG [id number] Take 1-2 tablets every 12 hours GUAIFENESIN 30439165679 No Longer Active Rich Rosales MD Activ e BACTRIM 400-80 MG TABS take one po BID SULFAMETHOXAZOLE-TRIMETHOPRIM 08406097175 No Longer Active Abelardo HERNANDEZ Active AZITHROMYCIN 500 MG TABS 1 PO q day x 6 days AZ ITHROMYCIN 52408819587 No Longer Active Tin HERNANDEZ Active ZITHROMAX 250 MG TAB 2 po today, then 1 po q days 2-5 AZITHROMYCIN 72313760201 No Longer Active Arie Casper MD Acti ve ZITHROMAX 250 MG TAB 2 po today, then 1 po q days 2-5 AZITHROMYCIN 71413074403 No Longer Active Arie Casper MD Acti ve AMOXICILLIN 500 MG CAP 1 tab by mouth 3 times daily 09/23/20 AMOXICILLIN 90069253238 No Longer Active Arie Casper MD Acti ve BACTRIM DS 800-160 MG TAB 1 tab by mouth twice daily 2 TRIMETHOPRIM-SULFAMETHOXAZOLE 38218394635 No Longer Active Arie Casper MD Active AMOXICILLIN 500 MG TABS take 1 tab po TID AMOXI CILLIN 69532694196 No Longer Active Arie Casper MD Active BACTRIM DS 800-160 MG TAB 1 tab by mouth twice daily 2 BACTRIM DS 800-160 MG TAB 441913 TRIMETHOPRIM-SULFAMETHOXAZOLE Inac tive MUCINEX 600 MG [id number] Take 1-2 tablets every 12 hours MUCINEX 600 MG AS25C-NOL GUAIFENESIN Inactive ZOFRAN 4 MG TABS 1 tablet every 4 hours ZOFRAN 4 MG TABS 920958 ONDANSETRON HCL Inactive ZOFRAN ODT 4 MG TBDP 1 po q6hr PRN Nausea ZOFRAN ODT 4 MG TBDP 593713 ONDANSETRON Inactive CHLORASEPTIC MAX SORE THROAT 15-10 MG LOZG 1 every 2 hours prn 2 CHLORASEPTIC MAX SORE THROAT 15-10 MG LOZG BENZO ARINA-MENTHOL Inactive COMTREX COLD/COUGH DAY/NITE MS 5-2-10-325 MG MISC 2 caps deja ry 4 hours COMTREX COLD/COUGH DAY/NITE MS 5-2-10-325 MG MIS C [id number] Inactive [facility] TUSSIN COUGH/COLD CF 5-10-100 MG/5ML LIQD 2 teaspoons ev leiud 4 hours [facility] TUSSIN COUGH/COLD CF 5-10-100 MG/5ML LIQD [id number] Inactive IBUPROFEN 800 MG TABS take one po Q 8 hours IBUPROFEN 800 MG TABS IBUPROFEN Inactive VITAMINS 0.8 MG TABS take 1 tab po qday 08/08 VITAMINS 0.8 MG TABS [id number] Inactive TESSALON PERLES 100 MG CAP 1 tablet by mouth 3 times daily 11/01 TESSALON PERLES 100 MG CAP 706139 BENZONATATE Inact zaid AMOXICILLIN 500 MG CAP 1 tab by mouth 3 times daily 08/12/16 AMOXICILLIN 500 MG CAP 941439 AMOXICILLIN Inactive GUAIFENESIN-CODEINE 100-10 MG/5ML ORAL SYRP 2 tsp every 6 hours prn GUAIFENESIN-CODEINE 100-10 MG/5ML ORAL SYRP 349192 GUAIFENESIN-CODEINE Inactive VICKS DAYQUIL SEVERE COLD/FLU TABS 1 tab every 6 hours prn 12/10 VICKS DAYQUIL SEVERE COLD/FLU TABS PHENYLEPHRINE -DM-GG-APAP TABS Inactive BACTRIM DS 800-160 MG TABS 1 twice a day BACTRIM DS 800- 160 MG TABS 642809 SULFAMETHOXAZOLE-TRIMETHOPRIM Inactive PROMETHAZINE HCL 25 MG TABS 1 four times a day as needed for vomiting PROMETHAZINE HCL 25 MG TABS 846624 PROMETHAZINE HCL Inactive ZYRTEC ALLERGY 10 MG CAPS 1 po qd ZY RTEC ALLERGY 10 MG CAPS CETIRIZINE HCL Inactive MACROBID 100 MG CAP 1 cap by mouth twice daily MACROBID 100 MG CAP 6709033 NITROFURANTOIN MONOHYD MACRO Inactive LOMOTIL 2.5-0.025 MG TABS 1 to 2 four times a day as needed for diarrhea LOMOTIL 2.5-0.025 MG TABS 9082923 DIPHENOXYLATE-A TROPINE Inactive CYCLOBENZAPRINE HCL 10 MG TABS 1/2 - 1 tablet by mouth three times daily as needed for muscle spasm/pain CYCLOBENZAP RINE HCL 10 MG TABS 825672 CYCLOBENZAPRINE HCL Inactive AMOXICILLIN 500 MG TABS 2 tabs twice a day for 10 days AMOXICILLIN 500 MG TABS 808077 AMOXICILLIN Inactive LOMOTIL 2.5-0.025 MG TAB 1 to 2 four times a day as needed f or diarrhea LOMOTIL 2.5-0.025 MG TAB 6329299 DIPHENOXYLATE-AT ROPINE Inactive ZOFRAN 4 MG ORAL TABS 1 TAB PO Q 6 HRS PRN NAUSEA 2014 ZOFRAN 4 MG ORAL TABS 717583 ONDANSETRON HCL Inactive CITRATE OF MAGNESIA ORAL SOLN 1 bottle today for constipation 20 07/10/15 CITRATE OF MAGNESIA ORAL SOLN 8099796 MAGNESIUM CITRATE Inactive PROMETHAZINE HCL 12.5 MG TABS 1 tablet by mouth every 6 hours as needed for nausea/vomiting PROMETHAZINE HCL 12.5 MG TABS 598503 PROMETHAZINE HCL Inactive PREDNISONE 20 MG TAB 1 tablet twice daily for 2 d ays, then 1 tablet once daily for 2 days PREDNISONE 20 MG TAB 467876 PREDNISONE Inac tive ALPRAZOLAM 0.25 MG TAB 1 tablet by mouth every 8 hours as ne eded for stress ALPRAZOLAM 0.25 MG TAB 615068 ALPRAZOLAM Inact zaid FLONASE 50 MCG/ACT SUSP 1 spray each nostril twice d aily for allergies and runny nose until gone FLONASE 50 MCG/ACT SUSP F LUTICASONE PROPIONATE Inactive PREDNISONE 20 MG TAB 1 tablet daily for airway inflammation 2015 PREDNISONE 20 MG TAB 021366 PREDNISONE Inactive NAPROXEN 500 MG TAB Take 1 tab BID NAPROXEN 500 MG TAB 233748 NAPROXEN Inactive ZOLOFT 50 MG TAB 1 tablet by mouth daily ZOLOFT 50 MG TAB 509686 SERTRALINE HCL Inactive LOMOTIL 2.5-0.025 MG TAB 1 tab po four times a day as needed for diarrhea LOMOTIL 2.5-0.025 MG TAB 5014001 DIPHENOXYLATE-AT ROPINE Inactive AMOXICILLIN 500 MG TABS take 1 tab po TID AMOXICILLIN 500 MG TABS 574813 AMOXICILLIN Inactive AMOXICILLIN 500 MG CAP 1 tab by mouth 3 times daily 09/23/20 AMOXICILLIN 500 MG CAP 262713 AMOXICILLIN Inactive ZITHROMAX 250 MG TAB 2 po today, then 1 po q days 2-5 ZITHROMAX 250 MG TAB 2169533 AZITHROMYCIN Inactive ZITHROMAX 250 MG TAB 2 po today, then 1 po q days 2-5 ZITHROMAX 250 MG TAB 5326930 AZITHROMYCIN Inactive AZITHROMYCIN 500 MG TABS 1 PO q day x 6 days 3 AZITHROMYCIN 500 MG TABS 7747215 AZITHROMYCIN Inactive BACTRIM 400-80 MG TABS take one po BID BA CTRIM 400-80 MG TABS 585814 SULFAMETHOXAZOLE-TRIMETHOPRIM Inactive AZITHROMYCIN 250 MG TABS 2 po qd x 1 day, then 1 po qd x 4 days AZITHROMYCIN 250 MG TABS 7801167 AZITHROMYCIN Inactiv e PREDNISONE 20 MG TAB 2 tabs daily for 3 days, 1 t ab daily for 3 days, 1/2 tab daily for 2 days PREDNISONE 20 MG TAB 296155 PREDNISON E Inactive ZITHROMAX 250 MG TAB 2 po today, then 1 po q days 2-5 ZITHROMAX 250 MG TAB 4067400 AZITHROMYCIN Inactive FLAGYL 500 MG TAB 1 tablet by mouth two times daily 07/11/29 FLAGYL 500 MG TAB 879267 METRONIDAZOLE Inactive AUGMENTIN 875-125 MG TAB 1 tab by mouth twice daily with food 20 08/12/16 AUGMENTIN 875-125 MG TAB 683973 AMOXICILLIN-POT CLAVULA ANGELO Inactive NAPROXEN 500 MG TAB one tab PO BID NAPROXEN 500 MG TAB 953636 NAPROXEN Inactive PREDNISONE 20 MG TAB 2 tabs daily for 3 days, 1 t ab daily for 3 days, 1/2 tab daily for 2 days PREDNISONE 20 MG TAB 731507 PREDNISON E Inactive AZITHROMYCIN 250 MG TABS 2 po qd x 1 day, then 1 po qd x 4 days AZITHROMYCIN 250 MG TABS 0389842 AZITHROMYCIN Inactiv e PREDNISONE 20 MG TAB 2 tabs daily for 3 days, 1 t ab daily for 3 days, 1/2 tab daily for 2 days PREDNISONE 20 MG TAB 027885 PREDNISON E Inactive ZITHROMAX Z-EMIL 250 MG TABS 2 today, then 1 daily for 4 days 201 03/31/18 ZITHROMAX Z-EMIL 250 MG TABS 5462746 AZITHROMYCIN Inac tive CEFDINIR 300 MG CAPS 1 po BID x 10 days C EFDINIR 300 MG CAPS 20030127 CEFDINIR Inactive CEFDINIR 300 MG CAPS 1 po BID x 10 days C EFDINIR 300 MG CAPS 595499 CEFDINIR Inactive PREDNISONE 20 MG TAB 2 tabs daily for 3 days, 1 t ab daily for 3 days, 1/2 tab daily for 2 days PREDNISONE 20 MG TAB 570756 PREDNISON E Inactive Advance Directives Directive Description [...] in mm 0 mm Lab Report: Chlamydia/GC APTIMA/[id number] - Lab chlamydia DNA probe NOT DETECTED NOT DETECTED Lab Report: Chlamydia/GC APTIMA/[id number] - Microbiology Neisseria gonorrhoeae DNA probe NOT [...] ative Encounters Code Encounter Date Provider Facility CPT-74460 Level 3 Est. Patient 16:40:36 CDT Arie mcqueen MD [facility] CPT-31799 Level 4 Est. Patient 15:29:22 CLINICAL EDUCATION ASSISTANT Arie mcqueen MD [facility] CPT-87043 Level 3 Est. Patient 15:18:16 CLINICAL EDUCATION ASSISTANT Jono black DO [facility] CPT-85225 Level 4 Est. Patient 12:08:40 CLINICAL EDUCATION ASSISTANT Brii And erson [facility] [place] CPT-51337 Level 3 Est. Patient 09:24:[address] [facility] [place] CPT-28200 Level 3 Est. Patient 09:12:56 CDT Arie mcqueen MD [facility]-01799 Level 3 Est. Patient 16:40:54 CDT Jose Zhong MD [facility] CPT-37684 Level 2 Est. Patient 13:01:13 CDT [address]hinav ri[address] [facility] [place] CPT-49931 Level 3 Est. Patient 11:55:30 CLINICAL EDUCATION ASSISTANT Jono black [facility] CPT-68930 Level 3 Est. Patient 09:52:36 CLINICAL EDUCATION ASSISTANT Steve [facility] CPT-74466 Level 3 Est. Patient 16:25:33 CLINICAL EDUCATION ASSISTANT Rich Rosales MD [facility] CPT-82477 Level 3 Est. Patient 20:33:55 CDT Arie mcqueen MD [facility] CPT-20336 Level 3 Est. Patient 14:18:20 CDT Rich Rosales MD [facility] CPT-05486 Level 4 Est. Patient 09:34:31 CDT Arie mcqueen MD [facility] CPT-60948 Level 3 Est. Patient 09:08:55 CLINICAL EDUCATION ASSISTANT Liliana vincent MD PhD [facility]-06559 Level 3 Est. Patient 16:44:07 CLINICAL EDUCATION ASSISTANT Arie mcqueen MD [facility] CPT-18564 Level 3 Est. Patient 10:44:27 CDT Arie mcqueen MD [facility] [place]-34501 Level 3 Est. Patient 08:55:41 CDT Joes Zhong MD [facility] CPT-04492 Level 3 Est. Patient 18:37:31 CDT Liliana vincent MD PhD [facility] CPT-63577 Level 3 Est. Patient 14:28:23 CDT Abelardo HERNANDEZ [facility] CPT-99620 Level 3 Est. Patient 15:18:13 CLINICAL EDUCATION ASSISTANT Arie mcqueen MD [facility] CPT-22029 Level 3 Est. Patient 10:11:29 CLINICAL EDUCATION ASSISTANT Arie mcqueen MD [facility] CPT-77955 Level 3 Est. Patient 10:55:57 CLINICAL EDUCATION ASSISTANT Jono Cheema ee DO [facility] CPT-33907 Level 3 Est. Patient 17:29:05 CDT Arie mcqueen MD [facility] Procedures Code Procedure Name Date Entry Date Standard Desc ription CPT-70531 Sono transvag pelvis non OB uterus ovari es cervix - XRAY USE ONLY 08:58:14 CLINICAL EDUCATION ASSISTANT CPT-36413 UA w micro - LAB USE ONLY 16:04:56 CLINICAL EDUCATION ASSISTANT 2015 CPT-67927 Wet Prep/GEN - LAB USE ONLY 16:04:56 CLINICAL EDUCATION ASSISTANT 20 08/10/29 CPT-04404 First Vx - Ix admin via ID I M or jet injects without counseling by physician 16:57:10 CDT CPT-77515 Fluzone Preservative Free Intramuscular Suspension 16:57:10 CDT CPT-J0696 Rocephin 1000 mg (Ceftriaxone) 11:49:23 CDT CPT-J1040 Depo Medrol 80 mg (Methyl Prednisolone A cetate) 11:49:23 CDT CPT-J1100 Decadron 8mg (Dexamethasone) 11:49:23 CDT 2 CPT-33491 Abx/Therapy Injection 11:49:23 CDT CPT-77487 Abx/Therapy Injection 11:49:23 CDT CPT-68503 Abd compl w upright 09:07:26 CLINICAL EDUCATION ASSISTANT CPT-88310 Ear Wash 16:12:47 CLINICAL EDUCATION ASSISTANT CPT-OV Office Visit 11:12:01 CDT CPT-OV Office Visit 15:30:23 CDT CPT-56089 Sono pelvis non OB uterus ovaries cervix 15:50:44 CDT CPT-77506 Hand comp min 3V 16:42:32 CDT CPT-33382 Abd compl w upright 12:17:01 CDT CPT-47760 Nexplanon Placement 15:07:39 CLINICAL EDUCATION ASSISTANT CPT-74854 Removal of IUD 15:07:39 CLINICAL EDUCATION ASSISTANT CPT-78288 TB Tubersol 12:09:32 CDT CPT-18216 TB Tubersol 13:55:43 CDT
--- OUTSIDE RECORDS SUMMARY | 2020-03-03 08:34 | XMS REPORT | Clinical Summary ---
Author Author Admin, Diamante Marcelo Organization [facility] Address Unknown Phone Unavailable Allergies, [...] a day as needed for diarrhea DIPHENOXYLATE-ATROPINE [id number] Active Rich mcintosh MD Active PROMETHAZINE HCL 25 MG TABS 1 four times a day as needed for vomiting PROMETHAZINE HCL 37367445862 Active Rich Rosales MD Active BACTRIM DS 800-160 MG TABS 1 twice a day SULFAMETHOXAZOLE-TRIMETHOPRIM 82337062922 Active Rich Rosales MD Active AUGMENTIN 875-125 MG TAB 1 tab by mouth twice daily with food 08/12/16 AMOXICILLIN-POT CLAVULANATE 74725705979 No Longer Active Liliana Estrada MD PhD Active CYCLOBENZAPRINE HCL 10 MG TABS 1/2 - 1 tablet by mouth three times daily as needed for muscle spasm/pain CYCLOBENZAPRINE HCL 17969 424771 Active Liliana Estrada MD PhD Active GUAIFENESIN-CODEINE 100-10 MG/5ML ORAL SYRP 2 tsp every 6 hours prn GUAIFENESIN-CODEINE 18137969034 Active Liliana Estrada MD PhD Active VICKS DAYQUIL SEVERE COLD/FLU TABS 1 tab every 6 hours prn [id number]-APAP TABS 77035420028 Active Liliana Estrada MD PhD Active AMOXICILLIN 500 MG CAP 1 tab by mouth 3 times daily 08/12/16 AMOXICILLIN 60167888989 No Longer Active Liliana Estrada MD PhD Acti ve TESSALON PERLES 100 MG CAP 1 tablet by mouth 3 times daily 11/01 BENZONATATE 20805310840 No Longer Active Liliana Estrada MD PhD Active FLAGYL 500 MG TAB 1 tablet by mouth two times daily 07/11/29 METRONIDAZOLE 55931221927 No Longer Active Nilam Weber Active ZITHROMAX 250 MG TAB 2 po today, then 1 po q days 2-5 AZITHROMYCIN 72555197863 No Longer Active Arie Casper MD Acti ve VITAMINS 0.8 MG TABS take 1 tab po qday 08/08 [id number]-[id number] 94694670543 No Longer Active Arie Casper MD Active IBUPROFEN 800 MG TABS take one po Q 8 hours IBU PROFEN 47165935297 No Longer Active Arie Casper MD Active [facility] TUSSIN COUGH/COLD CF 5-10-100 MG/5ML LIQD 2 teaspoons ev eliud 4 hours [id number]-VQ-[id number] 82395425401 No Longer Active Blaine Casper MD Active COMTREX COLD/COUGH DAY/NITE MS 5-2-10-325 MG MISC 2 caps deja ry 4 hours KHACIQUCA-JSJ-BN-APAP 74829476244 No Longer Active Landon Casper MD Active CHLORASEPTIC MAX SORE THROAT 15-10 MG LOZG 1 every 2 hours prn 2 BENZOCAINE-MENTHOL 04372560017 No Longer Active Arie Marcelo Active PREDNISONE 20 MG TAB 2 tabs daily for 3 days, 1 t ab daily for 3 days, 1/2 tab daily for 2 days PREDNISONE 52895596140 No Longer Active Jose Zhong MD Active AZITHROMYCIN 250 MG TABS 2 po qd x 1 day, then 1 po qd x 4 days AZITHROMYCIN 65340091795 No Longer Active Jose Zhong MD Active ZOFRAN ODT 4 MG TBDP 1 po q6hr PRN Nausea ONDAN SETRON 50085554397 No Longer Active Rich Rosales MD Active ZOFRAN 4 MG TABS 1 tablet every 4 hours ONDANSE JERRELL HCL 47640255677 No Longer Active Rich Rosales MD Active MUCINEX 600 MG FA06Y-AUN Take 1-2 tablets every 12 hours GUAIFENESIN 69052755000 No Longer Active Rich Rosales MD Activ e BACTRIM 400-80 MG TABS take one po BID SULFAMETHOXAZOLE-TRIMETHOPRIM 02868648622 No Longer Active Abelardo HERNANDEZ Active AZITHROMYCIN 500 MG TABS 1 PO q day x 6 days AZ ITHROMYCIN 54063329492 No Longer Active Tin HERNANDEZ Active ZITHROMAX 250 MG TAB 2 po today, then 1 po q days 2-5 AZITHROMYCIN 64710070840 No Longer Active Arie Casper MD Acti ve ZITHROMAX 250 MG TAB 2 po today, then 1 po q days 2-5 AZITHROMYCIN 22483621706 No Longer Active Arie Casper MD Acti ve AMOXICILLIN 500 MG CAP 1 tab by mouth 3 times daily 09/23/20 AMOXICILLIN 28502412745 No Longer Active Arie Casper MD Acti ve BACTRIM DS 800-160 MG TAB 1 tab by mouth twice daily 2 TRIMETHOPRIM-SULFAMETHOXAZOLE 74520288921 No Longer Active Arie Casper MD Active AMOXICILLIN 500 MG TABS take 1 tab po TID AMOXI CILLIN 52919430230 No Longer Active Arie Csaper MD Active BACTRIM DS 800-160 MG TAB 1 tab by mouth twice daily 2 BACTRIM DS 800-160 MG TAB TRIMETHOPRIM-SULFAMETHOXAZOLE Inac tive MUCINEX 600 MG [id number]-[id number] Take 1-2 tablets every 12 hours MUCINEX 600 MG [id number] GUAIFENESIN Inactive ZOFRAN 4 MG TABS 1 tablet every 4 hours ZOFRAN 4 MG TABS 206270 ONDANSETRON HCL Inactive ZOFRAN ODT 4 MG TBDP 1 po q6hr PRN Nausea ZOFRAN ODT 4 MG TBDP 290199 ONDANSETRON Inactive CHLORASEPTIC MAX SORE THROAT 15-10 MG LOZG 1 every 2 hours prn 2 014/04/30 CHLORASEPTIC MAX SORE THROAT 15-10 MG LOZG BENZO ARINA-MENTHOL Inactive COMTREX COLD/COUGH DAY/NITE MS 5-2-10-325 MG MISC 2 caps deja ry 4 hours COMTREX COLD/COUGH DAY/NITE MS 5-2-10-325 MG MIS C [id number]-[id number]-APAP Inactive [facility] TUSSIN COUGH/COLD CF 5-10-100 MG/5ML LIQD 2 teaspoons ev eliud 4 hours [facility] TUSSIN COUGH/COLD CF 5-10-100 MG/5ML LIQD [id number]-LC Inactive IBUPROFEN 800 MG TABS take one po Q 8 hours IBUPROFEN 800 MG TABS IBUPROFEN Inactive VITAMINS 0.8 MG TABS take 1 tab po qday 08/08 VITAMINS 0.8 MG TABS [id number]-[id number]-FA Inactive TESSALON PERLES 100 MG CAP 1 tablet by mouth 3 times daily 11/01 TESSALON PERLES 100 MG CAP 527597 BENZONATATE Inact zaid AMOXICILLIN 500 MG CAP 1 tab by mouth 3 times daily 08/12/16 AMOXICILLIN 500 MG CAP 888228 AMOXICILLIN Inactive AMOXICILLIN 500 MG TABS take 1 tab po TID AMOXICILLIN 500 MG TABS 089615 AMOXICILLIN Inactive AMOXICILLIN 500 MG CAP 1 tab by mouth 3 times daily 09/23/20 AMOXICILLIN 500 MG CAP 730830 AMOXICILLIN Inactive ZITHROMAX 250 MG TAB 2 po today, then 1 po q days 2-5 ZITHROMAX 250 MG TAB 7790003 AZITHROMYCIN Inactive ZITHROMAX 250 MG TAB 2 po today, then 1 po q days 2-5 ZITHROMAX 250 MG TAB 6840723 AZITHROMYCIN Inactive AZITHROMYCIN 500 MG TABS 1 PO q day x 6 days 3 AZITHROMYCIN 500 MG TABS 7964511 AZITHROMYCIN Inactive BACTRIM 400-80 MG TABS take one po BID BA CTRIM 400-80 MG TABS 269194 SULFAMETHOXAZOLE-TRIMETHOPRIM Inactive AZITHROMYCIN 250 MG TABS 2 po qd x 1 day, then 1 po qd x 4 days AZITHROMYCIN 250 MG TABS 0244585 AZITHROMYCIN Inactiv e PREDNISONE 20 MG TAB 2 tabs daily for 3 days, 1 t ab daily for 3 days, 1/2 tab daily for 2 days PREDNISONE 20 MG TAB 914740 PREDNISON E Inactive ZITHROMAX 250 MG TAB 2 po today, then 1 po q days 2-5 ZITHROMAX 250 MG TAB 4065006 AZITHROMYCIN Inactive FLAGYL 500 MG TAB 1 tablet by mouth two times daily 07/11/29 FLAGYL 500 MG TAB 265938 METRONIDAZOLE Inactive AUGMENTIN 875-125 MG TAB 1 tab by mouth twice daily with food 08/12/16 AUGMENTIN 875-125 MG TAB 829660 AMOXICILLIN-POT CLAVULA ANGELO Inactive Advance Directives Directive [...] Negative;Positive Encounters Code Encounter Date Provider Facility CPT-56805 Level 3 Est. Patient 14:18:20 CDT Rich Rosales MD [facility] CPT-90841 Level 4 Est. Patient 09:34:31 CDT Arie mcqueen MD [facility] CPT-55732 Level 3 Est. Patient 09:08:55 COMMERCIAL ARTIST LETTERING Liliana vincent MD PhD [facility] CPT-56857 Level 3 Est. Patient 16:44:07 COMMERCIAL ARTIST LETTERING Arie mcqueen MD [facility] CPT-73901 Level 3 Est. Patient 10:44:27 CDT Arie mcqueen MD [facility] CPT-64927 Level 3 Est. Patient 08:55:41 CDT Jose Zhong MD [facility] CPT-16022 Level 3 Est. Patient 18:37:31 CDT Liliana vincent MD PhD [facility] CPT-51221 Level 3 Est. Patient 14:28:23 CDT Abelardo HERNANDEZ [facility] CPT-21080 Level 3 Est. Patient 15:18:13 COMMERCIAL ARTIST LETTERING Arie mcqueen MD [facility] CPT-87336 Level 3 Est. Patient 10:11:29 COMMERCIAL ARTIST LETTERING Arie mcqueen MD [facility] CPT-39275 Level 3 Est. Patient 10:55:57 COMMERCIAL ARTIST LETTERING Jono black DO [facility] CPT-32405 Level 3 Est. Patient 17:29:05 CDT Arie mcqueen MD [facility] Procedures Code Procedure Name Date Entry Date Standard Desc ription CPT-06625 Hand comp min 3V 16:42:32 CDT CPT-18144 Abd compl w upright 12:17:01 CDT CPT-07515 Nexplanon Placement 15:07:39 COMMERCIAL ARTIST LETTERING CPT-97204 Removal of IUD 15:07:39 COMMERCIAL ARTIST LETTERING CPT-92746 TB Tubersol 12:09:32 CDT CPT-13935 TB Tubersol 13:55:43 CDT
--- OUTSIDE RECORDS SUMMARY | 2020-03-03 08:34 | XMS REPORT | Clinical Summary ---
Author Author Admin, Diamante Marcelo Organization [facility] Address Unknown Phone Unavailable Allergies, Adverse [...] a day as needed for diarrhea DIPHENOXYLATE-ATROPINE 18246010508 Active Rich mcintosh MD Active PROMETHAZINE HCL 25 MG TABS 1 four times a day as needed for vomiting PROMETHAZINE HCL 53584532505 Active Rich Rosales MD Active BACTRIM DS 800-160 MG TABS 1 twice a day SULFAMETHOXAZOLE-TRIMETHOPRIM 98848334939 Active Rich Rosales MD Active AUGMENTIN 875-125 MG TAB 1 tab by mouth twice daily with food 08/12/16 AMOXICILLIN-POT CLAVULANATE 40085110217 No Longer Active Liliana Estrada MD PhD Active CYCLOBENZAPRINE HCL 10 MG TABS 1/2 - 1 tablet by mouth three times daily as needed for muscle spasm/pain CYCLOBENZAPRINE HCL 18056 807337 Active Liliana Estrada MD PhD Active GUAIFENESIN-CODEINE 100-10 MG/5ML ORAL SYRP 2 tsp every 6 hours prn GUAIFENESIN-CODEINE 03362306898 Active Liliana Estrada MD PhD Active VICKS DAYQUIL SEVERE COLD/FLU TABS 1 tab every 6 hours prn [id number]-BR-APAP TABS 31720216899 Active Liliana Estrada MD PhD Active AMOXICILLIN 500 MG CAP 1 tab by mouth 3 times daily 08/12/16 AMOXICILLIN 22771442074 No Longer Active Liilana Estrada MD PhD Acti ve TESSALON PERLES 100 MG CAP 1 tablet by mouth 3 times daily 11/01 BENZONATATE 98787001376 No Longer Active Liliana Estrada MD PhD Active FLAGYL 500 MG TAB 1 tablet by mouth two times daily 07/11/29 METRONIDAZOLE 29081767916 No Longer Active Nilam Weber Active ZITHROMAX 250 MG TAB 2 po today, then 1 po q days 2-5 AZITHROMYCIN 86505987305 No Longer Active Arie Casper MD Acti ve VITAMINS 0.8 MG TABS take 1 tab po qday 08/08 [id number]-ELG-JM-FA 04128055835 No Longer Active Arie Casper MD Active IBUPROFEN 800 MG TABS take one po Q 8 hours IBU PROFEN 64218594542 No Longer Active Arie Casper MD Active [facility] TUSSIN COUGH/COLD CF 5-10-100 MG/5ML LIQD 2 teaspoons ev eliud 4 hours RYCMNWNHEHBKP-QK-DZ 38771285461 No Longer Active Blaine Casper MD Active COMTREX COLD/COUGH DAY/NITE MS 5-2-10-325 MG MISC 2 caps deja ry 4 hours PCBCUNABA-JEF-TJ-APAP 69522948546 No Longer Active Landon Casper MD Active CHLORASEPTIC MAX SORE THROAT 15-10 MG LOZG 1 every 2 hours prn 2 BENZOCAINE-MENTHOL 02982327236 No Longer Active Arie Marcelo Active PREDNISONE 20 MG TAB 2 tabs daily for 3 days, 1 t ab daily for 3 days, 1/2 tab daily for 2 days PREDNISONE 99699812329 No Longer Active Jose Zhong MD Active AZITHROMYCIN 250 MG TABS 2 po qd x 1 day, then 1 po qd x 4 days AZITHROMYCIN 04739960931 No Longer Active Jose Zhong MD Active ZOFRAN ODT 4 MG TBDP 1 po q6hr PRN Nausea ONDAN SETRON 14139355261 No Longer Active Rich Rosales MD Active ZOFRAN 4 MG TABS 1 tablet every 4 hours ONDANSE JERRELL HCL 30278557467 No Longer Active Rich Rosales MD Active MUCINEX 600 MG [id number]-[id number] Take 1-2 tablets every 12 hours GUAIFENESIN 66234005836 No Longer Active Rich Rosales MD Activ e BACTRIM 400-80 MG TABS take one po BID SULFAMETHOXAZOLE-TRIMETHOPRIM 56062987574 No Longer Active Abelardo HERNANDEZ Active AZITHROMYCIN 500 MG TABS 1 PO q day x 6 days AZ ITHROMYCIN 87015791429 No Longer Active Tin HERNANDEZ Active ZITHROMAX 250 MG TAB 2 po today, then 1 po q days 2-5 AZITHROMYCIN 64182681242 No Longer Active Arie Casper MD Acti ve ZITHROMAX 250 MG TAB 2 po today, then 1 po q days 2-5 AZITHROMYCIN 00338219576 No Longer Active Arie Casper MD Acti ve AMOXICILLIN 500 MG CAP 1 tab by mouth 3 times daily 09/23/20 AMOXICILLIN 42451971332 No Longer Active Arei Casper MD Acti ve BACTRIM DS 800-160 MG TAB 1 tab by mouth twice daily 2 TRIMETHOPRIM-SULFAMETHOXAZOLE 69150347865 No Longer Active Arie Casper MD Active AMOXICILLIN 500 MG TABS take 1 tab po TID AMOXI CILLIN 60361292939 No Longer Active Arie Casper MD Active BACTRIM DS 800-160 MG TAB 1 tab by mouth twice daily 2 BACTRIM DS 800-160 MG TAB TRIMETHOPRIM-SULFAMETHOXAZOLE Inac tive MUCINEX 600 MG [id number] Take 1-2 tablets every 12 hours MUCINEX 600 MG [id number] GUAIFENESIN Inactive ZOFRAN 4 MG TABS 1 tablet every 4 hours ZOFRAN 4 MG TABS 750574 ONDANSETRON HCL Inactive ZOFRAN ODT 4 MG TBDP 1 po q6hr PRN Nausea ZOFRAN ODT 4 MG TBDP 145542 ONDANSETRON Inactive CHLORASEPTIC MAX SORE THROAT 15-10 MG LOZG 1 every 2 hours prn 2 014/04/30 CHLORASEPTIC MAX SORE THROAT 15-10 MG LOZG BENZO ARINA-MENTHOL Inactive COMTREX COLD/COUGH DAY/NITE MS 5-2-10-325 MG MISC 2 caps deja ry 4 hours COMTREX COLD/COUGH DAY/NITE MS 5-2-10-325 MG MIS C [id number]-APAP Inactive [facility] TUSSIN COUGH/COLD CF 5-10-100 MG/5ML LIQD 2 teaspoons ev eliud 4 hours CVS TUSSIN COUGH/COLD CF 5-10-100 MG/5ML LIQD [id number] Inactive IBUPROFEN 800 MG TABS take one po Q 8 hours IBUPROFEN 800 MG TABS IBUPROFEN Inactive VITAMINS 0.8 MG TABS take 1 tab po qday 08/08 VITAMINS 0.8 MG TABS CSNAESQY-BAC-UT-FA Inactive TESSALON PERLES 100 MG CAP 1 tablet by mouth 3 times daily 11/01 TESSALON PERLES 100 MG CAP 096966 BENZONATATE Inact zaid AMOXICILLIN 500 MG CAP 1 tab by mouth 3 times daily 08/12/16 AMOXICILLIN 500 MG CAP 380665 AMOXICILLIN Inactive AMOXICILLIN 500 MG TABS take 1 tab po TID AMOXICILLIN 500 MG TABS 322317 AMOXICILLIN Inactive AMOXICILLIN 500 MG CAP 1 tab by mouth 3 times daily 09/23/20 AMOXICILLIN 500 MG CAP 479445 AMOXICILLIN Inactive ZITHROMAX 250 MG TAB 2 po today, then 1 po q days 2-5 ZITHROMAX 250 MG TAB 8958749 AZITHROMYCIN Inactive ZITHROMAX 250 MG TAB 2 po today, then 1 po q days 2-5 ZITHROMAX 250 MG TAB 9822616 AZITHROMYCIN Inactive AZITHROMYCIN 500 MG TABS 1 PO q day x 6 days 3 AZITHROMYCIN 500 MG TABS 1740972 AZITHROMYCIN Inactive BACTRIM 400-80 MG TABS take one po BID BA CTRIM 400-80 MG TABS 811746 SULFAMETHOXAZOLE-TRIMETHOPRIM Inactive AZITHROMYCIN 250 MG TABS 2 po qd x 1 day, then 1 po qd x 4 days AZITHROMYCIN 250 MG TABS 0839442 AZITHROMYCIN Inactiv e PREDNISONE 20 MG TAB 2 tabs daily for 3 days, 1 t ab daily for 3 days, 1/2 tab daily for 2 days PREDNISONE 20 MG TAB 109420 PREDNISON E Inactive ZITHROMAX 250 MG TAB 2 po today, then 1 po q days 2-5 ZITHROMAX 250 MG TAB 0187521 AZITHROMYCIN Inactive FLAGYL 500 MG TAB 1 tablet by mouth two times daily 07/11/29 FLAGYL 500 MG TAB 659212 METRONIDAZOLE Inactive AUGMENTIN 875-125 MG TAB 1 tab by mouth twice daily with food 08/12/16 AUGMENTIN 875-125 MG TAB 652014 AMOXICILLIN-POT CLAVULA ANGELO Inactive Advance Directives Directive [...] 11 .6-14.8 platelet count 214 10^3/MM^3 10*3/mm3 267-181 4485/01/08 lymphocytes as percent of blood leukocytes 28.4 % 20.5-51.1 monocytes as percent of blood leukocytes 12.7 % 1.7-9.3 neutrophils as percent of blood leukocytes 54.8 % 42.2-75.2 leukocyte count, blood 4.4 10^3/MM^3 10*3/mm3 4.6-10.2 Lab Report: LILIA INFLUENZA A/B - [place] rapid flu test Negative Negative;Positive Encounters Code Encounter Date Provider Facility CPT-88090 Level 3 Est. Patient 14:18:20 CDT Rich Rosales MD [facility] CPT-15975 Level 4 Est. Patient 09:34:31 CDT Arie mcqueen MD [facility] CPT-34671 Level 3 Est. Patient 09:08:55 APARTMENT MAINTENANCE MANAGER Liliana vincent MD PhD [facility] CPT-22504 Level 3 Est. Patient 16:44:07 APARTMENT MAINTENANCE MANAGER Arie mcqueen MD [facility] CPT-83863 Level 3 Est. Patient 10:44:27 CDT Arie mcqueen MD [facility] CPT-43008 Level 3 Est. Patient 08:55:41 CDT Jose Zhong MD [facility] CPT-00276 Level 3 Est. Patient 18:37:31 CDT Liliana vincent MD PhD [facility] CPT-97711 Level 3 Est. Patient 14:28:23 CDT Abelardo HERNANDEZ [facility] CPT-34487 Level 3 Est. Patient 15:18:13 APARTMENT MAINTENANCE MANAGER Arie mcqueen MD [facility] CPT-22188 Level 3 Est. Patient 10:11:29 APARTMENT MAINTENANCE MANAGER Arie mcqueen MD [facility] CPT-55571 Level 3 Est. Patient 10:55:57 APARTMENT MAINTENANCE MANAGER Jono black DO [facility] CPT-64979 Level 3 Est. Patient 17:29:05 CDT Arie mcqueen MD [facility] Procedures Code Procedure Name Date Entry Date Standard Desc ription CPT-78320 Sono pelvis non OB uterus ovaries cervix 15:50:44 CDT CPT-22000 Hand comp min 3V 16:42:32 CDT CPT-26176 Abd compl w upright 12:17:01 CDT CPT-69688 Nexplanon Placement 15:07:39 APARTMENT MAINTENANCE MANAGER CPT-44977 Removal of IUD 15:07:39 APARTMENT MAINTENANCE MANAGER CPT-51415 TB Tubersol 12:09:32 CDT CPT-49555 TB Tubersol 13:55:43 CDT
--- OUTSIDE RECORDS SUMMARY | 2020-03-03 08:34 | XMS REPORT | Clinical Summary ---
Author Author Admin, Diamante Marcelo Organization [facility] Address Unknown Phone Unavailable Allergies, Adverse Reactions, [...] TAB one tab PO BID NAPROXEN 332 [id number] Active Myrna Roberto MD Active LOMOTIL 2.5-0.025 MG TABS 1 to 2 four times a day as needed for diarrhea DIPHENOXYLATE-ATROPINE 19253323370 Active Rich mcintosh MD Active PROMETHAZINE HCL 25 MG TABS 1 four times a day as needed for vomiting PROMETHAZINE HCL 96117568580 Active Rich Rosales MD Active BACTRIM DS 800-160 MG TABS 1 twice a day SULFAMETHOXAZOLE-TRIMETHOPRIM 47530594110 Active Rich Rosales MD Active AUGMENTIN 875-125 MG TAB 1 tab by mouth twice daily with food 20 08/12/16 AMOXICILLIN-POT CLAVULANATE 32481044788 No Longer Active Liliana Estrada MD PhD Active CYCLOBENZAPRINE HCL 10 MG TABS 1/2 - 1 tablet by mouth three times daily as needed for muscle spasm/pain CYCLOBENZAPRINE HCL 61064 483627 Active Liliana Estrada MD PhD Active GUAIFENESIN-CODEINE 100-10 MG/5ML ORAL SYRP 2 tsp every 6 hours prn GUAIFENESIN-CODEINE 16441574136 Active Liliana Estrada MD PhD Active VICKS DAYQUIL SEVERE COLD/FLU TABS 1 tab every 6 hours prn JNWZLEYLUKNZP-DE-CY-APAP TABS 04944004845 Active Liliana Estrada MD PhD Active AMOXICILLIN 500 MG CAP 1 tab by mouth 3 times daily 08/12/16 AMOXICILLIN 07674345168 No Longer Active Liliana Estrada MD PhD Acti ve TESSALON PERLES 100 MG CAP 1 tablet by mouth 3 times daily 11/01 BENZONATATE 33468510575 No Longer Active Liliana Estrada MD PhD Active FLAGYL 500 MG TAB 1 tablet by mouth two times daily 07/11/29 METRONIDAZOLE 45852997460 No Longer Active Nilam Weber Active ZITHROMAX 250 MG TAB 2 po today, then 1 po q days 2-5 AZITHROMYCIN 31559249527 No Longer Active Arie Casper MD Acti ve VITAMINS 0.8 MG TABS take 1 tab po qday 08/08 BPBNMZOO-JFW-KX-FA 77053501584 No Longer Active Arie Casper MD Active IBUPROFEN 800 MG TABS take one po Q 8 hours IBU PROFEN 97919204130 No Longer Active Arie Casper MD Active [facility]S TUSSIN COUGH/COLD CF 5-10-100 MG/5ML LIQD 2 teaspoons ev eliud 4 hours [id number]-EL-GM 01101141850 No Longer Active Blaine Casper MD Active COMTREX COLD/COUGH DAY/NITE MS 5-2-10-325 MG MISC 2 caps deja ry 4 hours GBIXCXXFV-SIN-ES-APAP 12063472289 No Longer Active Da aleksandra Casper MD Active CHLORASEPTIC MAX SORE THROAT 15-10 MG LOZG 1 every 2 hours prn 2 BENZOCAINE-MENTHOL 14892791660 No Longer Active Arie Marcelo Active PREDNISONE 20 MG TAB 2 tabs daily for 3 days, 1 t ab daily for 3 days, 1/2 tab daily for 2 days PREDNISONE 40782223752 No Longer Active Jose Zhong MD Active AZITHROMYCIN 250 MG TABS 2 po qd x 1 day, then 1 po qd x 4 days AZITHROMYCIN 21674403540 No Longer Active Jose Zhong MD Active ZOFRAN ODT 4 MG TBDP 1 po q6hr PRN Nausea ONDAN SETRON 98616073410 No Longer Active Rich Rosales MD Active ZOFRAN 4 MG TABS 1 tablet every 4 hours ONDANSE JERRELL HCL 13830385535 No Longer Active Rich Rosales MD Active MUCINEX 600 MG [id number]-CNI Take 1-2 tablets every 12 hours GUAIFENESIN 71764882283 No Longer Active Rich Rosales MD Activ e BACTRIM 400-80 MG TABS take one po BID SULFAMETHOXAZOLE-TRIMETHOPRIM 27524919609 No Longer Active Abelardo HERNANDEZ Active AZITHROMYCIN 500 MG TABS 1 PO q day x 6 days AZ ITHROMYCIN 07178848134 No Longer Active Tin HERNANDEZ Active ZITHROMAX 250 MG TAB 2 po today, then 1 po q days 2-5 AZITHROMYCIN 29209285600 No Longer Active Arie Casper MD Acti ve ZITHROMAX 250 MG TAB 2 po today, then 1 po q days 2-5 AZITHROMYCIN 44767455992 No Longer Active Arie Casper MD Acti ve AMOXICILLIN 500 MG CAP 1 tab by mouth 3 times daily 09/23/20 AMOXICILLIN 06433316230 No Longer Active Arie Casper MD Acti ve BACTRIM DS 800-160 MG TAB 1 tab by mouth twice daily 2 TRIMETHOPRIM-SULFAMETHOXAZOLE 99621333010 No Longer Active Arie Casper MD Active AMOXICILLIN 500 MG TABS take 1 tab po TID AMOXI CILLIN 16044460289 No Longer Active Arie Casper MD Active BACTRIM DS 800-160 MG TAB 1 tab by mouth twice daily 2 BACTRIM DS 800-160 MG TAB TRIMETHOPRIM-SULFAMETHOXAZOLE Inac tive MUCINEX 600 MG [id number]-YDS Take 1-2 tablets every 12 hours MUCINEX 600 MG HY91P-QHS GUAIFENESIN Inactive ZOFRAN 4 MG TABS 1 tablet every 4 hours ZOFRAN 4 MG TABS 896478 ONDANSETRON HCL Inactive ZOFRAN ODT 4 MG TBDP 1 po q6hr PRN Nausea ZOFRAN ODT 4 MG TBDP 833054 ONDANSETRON Inactive CHLORASEPTIC MAX SORE THROAT 15-10 MG LOZG 1 every 2 hours prn 2 /04/30 CHLORASEPTIC MAX SORE THROAT 15-10 MG LOZG BENZO ARINA-MENTHOL Inactive COMTREX COLD/COUGH DAY/NITE MS 5-2-10-325 MG MISC 2 caps deja ry 4 hours COMTREX COLD/COUGH DAY/NITE MS 5-2-10-325 MG MIS C [id number]-KQO-EK-APAP Inactive [facility] TUSSIN COUGH/COLD CF 5-10-100 MG/5ML LIQD 2 teaspoons ev eliud 4 hours [facility] TUSSIN COUGH/COLD CF 5-10-100 MG/5ML LIQD [id number]-MY-HI Inactive IBUPROFEN 800 MG TABS take one po Q 8 hours IBUPROFEN 800 MG TABS 623911 IBUPROFEN Inactive VITAMINS 0.8 MG TABS take 1 tab po qday 08/08 VITAMINS 0.8 MG TABS PQSFVQHA-SUT-TM-FA Inactive TESSALON PERLES 100 MG CAP 1 tablet by mouth 3 times daily 11/01 TESSALON PERLES 100 MG CAP 220397 BENZONATATE Inact zaid AMOXICILLIN 500 MG CAP 1 tab by mouth 3 times daily 08/12/16 AMOXICILLIN 500 MG CAP 341644 AMOXICILLIN Inactive AMOXICILLIN 500 MG TABS take 1 tab po TID AMOXICILLIN 500 MG TABS 289790 AMOXICILLIN Inactive AMOXICILLIN 500 MG CAP 1 tab by mouth 3 times daily 09/23/20 AMOXICILLIN 500 MG CAP 552673 AMOXICILLIN Inactive ZITHROMAX 250 MG TAB 2 po today, then 1 po q days 2-5 ZITHROMAX 250 MG TAB 1613640 AZITHROMYCIN Inactive ZITHROMAX 250 MG TAB 2 po today, then 1 po q days 2-5 ZITHROMAX 250 MG TAB 2558839 AZITHROMYCIN Inactive AZITHROMYCIN 500 MG TABS 1 PO q day x 6 days 3 AZITHROMYCIN 500 MG TABS 7209759 AZITHROMYCIN Inactive BACTRIM 400-80 MG TABS take one po BID BA CTRIM 400-80 MG TABS 484447 SULFAMETHOXAZOLE-TRIMETHOPRIM Inactive AZITHROMYCIN 250 MG TABS 2 po qd x 1 day, then 1 po qd x 4 days AZITHROMYCIN 250 MG TABS 3044604 AZITHROMYCIN Inactiv e PREDNISONE 20 MG TAB 2 tabs daily for 3 days, 1 t ab daily for 3 days, 1/2 tab daily for 2 days PREDNISONE 20 MG TAB 702434 PREDNISON E Inactive ZITHROMAX 250 MG TAB 2 po today, then 1 po q days 2-5 ZITHROMAX 250 MG TAB 0091552 AZITHROMYCIN Inactive FLAGYL 500 MG TAB 1 tablet by mouth two times daily 07/11/29 FLAGYL 500 MG TAB 578216 METRONIDAZOLE Inactive AUGMENTIN 875-125 MG TAB 1 tab by mouth twice daily with food 20 08/12/16 AUGMENTIN 875-125 MG TAB 254329 AMOXICILLIN-POT CLAVULA ANGELO Inactive Advance Directives Directive [...] 214 10^3/MM^3 10*3/mm3 142-424 Lab Report: Chlamydia/GC APTIMA/10607 - Lab chlamydia DNA probe NOT DETECTED NOT DETECTED Lab Report: Chlamydia/GC APTIMA/01600 - Microbiology Neisseria gonorrhoeae DNA probe NOT [...] 5.0-8.5 Encounters Code Encounter Date Provider Facility CPT-97004 Level 3 Est. Patient 14:18:20 CDT Rich Rosales MD [facility] CPT-85494 Level 4 Est. Patient 09:34:31 CDT Arie mcqueen MD [facility]-73912 Level 3 Est. Patient 09:08:55 BATCH AND FURNACE MANAGER Liliana vincent MD PhD [facility]71011 Level 3 Est. Patient 16:44:07 BATCH AND FURNACE MANAGER Arie mcqueen MD [facility] CPT-32849 Level 3 Est. Patient 10:44:27 CDT Arie mcqueen MD [facility] CPT-67379 Level 3 Est. Patient 08:55:41 CDT Jose Zhong MD [facility]-32761 Level 3 Est. Patient 18:37:31 CDT Liliana vincent MD PhD [facility] CPT-72171 Level 3 Est. Patient 14:28:23 CDT Abelardo HERNANDEZ [facility]-36431 Level 3 Est. Patient 15:18:13 BATCH AND FURNACE MANAGER Arie mcqueen MD [facility]-06228 Level 3 Est. Patient 10:11:29 BATCH AND FURNACE MANAGER Arie mcqueen MD [facility]-44390 Level 3 Est. Patient 10:55:57 BATCH AND FURNACE MANAGER Jono black DO [facility]-34299 Level 3 Est. Patient 17:29:05 CDT Arie mcqueen MD [facility] Procedures Code Procedure Name Date Entry Date Standard Desc ription CPT-OV Office Visit 15:30:23 CDT CPT-91984 Sono pelvis non OB uterus ovaries cervix 15:50:44 CDT CPT-69872 Hand comp min 3V 16:42:32 CDT CPT-59452 Abd compl w upright 12:17:01 CDT CPT-99281 Nexplanon Placement 15:07:39 BATCH AND FURNACE MANAGER CPT-63251 Removal of IUD 15:07:39 BATCH AND FURNACE MANAGER CPT-75019 TB Tubersol 12:09:32 CDT CPT-74771 TB Tubersol 13:55:43 CDT
--- OUTSIDE RECORDS SUMMARY | 2020-03-03 08:34 | XMS REPORT | Clinical Summary ---
Author Author Admin, Diamante Marcelo Organization [facility] Address Unknown Phone Unavailable Allergies, Adverse Reactions, [...] site Abdominal pain 789.00 Active Brii Larson ADAPTED PHYSICAL EDUCATION AIDE Abdominal pain, unspecified site Diarrhea 787.91 Resolved [...] cute pharyngitis Nausea 787.02 Active Brii Larson ADAPTED PHYSICAL EDUCATION AIDE Nausea alone URI 465.9 Active Jono Gagnon [...] Anxiety with depression 300.4 Active Glenn Larson ADAPTED PHYSICAL EDUCATION AIDE Dysthymic disorder BREAST CANCER ICD-V16.3 Inactive Jose [...] tablet by mouth daily SERTRA LINE HCL 39475617827 Active Brii Larson APRN Active LOMOTIL 2.5-0.025 MG TAB 1 tab po four times a day as needed for diarrhea DIPHENOXYLATE-ATROPINE 49249745622 Active Brii Larson APRN Active ZITHROMAX Z-EMIL 250 MG TABS 2 today, then 1 daily for 4 days 201 03/31/18 AZITHROMYCIN 08835720369 No Longer Active Arie Casper MD Active ALPRAZOLAM 0.25 MG TAB 1 tablet by mouth every 8 hours as ne eded for stress ALPRAZOLAM 84453946137 Active Brii Larson APRN Active PROTONIX 40 MG ORAL TBEC 1 po q a.m. PANTOPRAZO LE SODIUM 62417674649 Active Carline Ochoa RPT,RMA Active PREDNISONE 20 MG TAB 2 tabs daily for 3 days, 1 t ab daily for 3 days, 1/2 tab daily for 2 days PREDNISONE 33214812627 No Longer Active Brii Larson APRN Active PREDNISONE 20 MG TAB 1 tablet twice daily for 2 d ays, then 1 tablet once daily for 2 days PREDNISONE 47702509137 No Longer Active Brii Larson APRN Active FLONASE 50 MCG/ACT SUSP 1 spray each nostril twice d aily for allergies and runny nose until gone FLUTICASONE PROPIONATE Active Jono Gagnon DO Active PROMETHAZINE HCL 12.5 MG TABS 1 tablet by mouth every 6 hours as needed for nausea/vomiting PROMETHAZINE HCL 96395174521 No Longe r Active Jono Gagnon DO Active CITRATE OF MAGNESIA ORAL SOLN 1 bottle today for constipation 20 07/10/15 MAGNESIUM CITRATE 85667017440 No Longer Active Jono Gagnon DO Active ZOFRAN 4 MG ORAL TABS 1 TAB PO Q 6 HRS PRN NAUSEA 2014 ONDANSETRON HCL 00912693225 No Longer Active Brii Larson APRN A ctive LOMOTIL 2.5-0.025 MG TAB 1 to 2 four times a day as needed f or diarrhea DIPHENOXYLATE-ATROPINE 70079922797 No Longer Active January Larson APRN Active AMOXICILLIN 500 MG TABS 2 tabs twice a day for 10 days AMOXICILLIN 91061720515 No Longer Active Brii Larson APRN Acti ve NEXPLANON IMPL ETONOGESTREL IMPL 04506187433 Active Rich Rosales MD Active CYCLOBENZAPRINE HCL 10 MG TABS 1/2 - 1 tablet by mouth three times daily as needed for muscle spasm/pain CYCLOBENZAPRINE HCL 83851750886 No Longer Active Arie Casper MD Active LOMOTIL 2.5-0.025 MG TABS 1 to 2 four times a day as needed for diarrhea DIPHENOXYLATE-ATROPINE 15362056591 No Longer Active Mason Casper MD Active MACROBID 100 MG CAP 1 cap by mouth twice daily NITROFURANTOIN MONOHYD MACRO 24906597825 No Longer Active Arie Casper MD Active ZYRTEC ALLERGY 10 MG CAPS 1 po qd CETIRIZINE HCL 05576361204 No Longer Active Arie Casper MD Active AZITHROMYCIN 250 MG TABS 2 po qd x 1 day, then 1 po qd x 4 days AZITHROMYCIN 99794359727 No Longer Active Jillina Frazell ADAPTED PHYSICAL EDUCATION AIDE Active PREDNISONE 20 MG TAB 2 tabs daily for 3 days, 1 t ab daily for 3 days, 1/2 tab daily for 2 days PREDNISONE 67543148409 No Longer Active Jillina Frazell ADAPTED PHYSICAL EDUCATION AIDE Active PROMETHAZINE HCL 25 MG TABS 1 four times a day as needed for vomiting PROMETHAZINE HCL 04318387372 No Longer Active Myrna Roberto MD Active BACTRIM DS 800-160 MG TABS 1 twice a day SULFAMETHOXAZOLE-TRIMETHOPRIM 88273902482 No Longer Active Myrna Roberto MD Active VICKS DAYQUIL SEVERE COLD/FLU TABS 1 tab every 6 hours prn 12/10 OACBLFPXCONVO-IM-ER-APAP TABS 78843831687 No Longer Active Myrna leigh MD Active GUAIFENESIN-CODEINE 100-10 MG/5ML ORAL SYRP 2 tsp every 6 hours prn GUAIFENESIN-CODEINE 90069166943 No Longer Active Myrna Roberto MD Active NAPROXEN 500 MG TAB one tab PO BID NAPROXEN 332 47294957 No Longer Active Myrna Roberto MD Active AUGMENTIN 875-125 MG TAB 1 tab by mouth twice daily with food 08/12/16 AMOXICILLIN-POT CLAVULANATE 45881329788 No Longer Active Liliana Estrada MD PhD Active AMOXICILLIN 500 MG CAP 1 tab by mouth 3 times daily 08/12/16 AMOXICILLIN 26599062942 No Longer Active Liliana Estrada MD PhD Acti ve TESSALON PERLES 100 MG CAP 1 tablet by mouth 3 times daily 11/01 BENZONATATE 60916110091 No Longer Active Liliana Estrada MD PhD Active FLAGYL 500 MG TAB 1 tablet by mouth two times daily 20 07/11/29 METRONIDAZOLE 67940723790 No Longer Active Nilam Weber Active ZITHROMAX 250 MG TAB 2 po today, then 1 po q days 2-5 AZITHROMYCIN 31565288512 No Longer Active Arie Casper MD Acti ve VITAMINS 0.8 MG TABS take 1 tab po qday 08/08 [id number]-UPG-CO-FA 79691992079 No Longer Active Aire Casper MD Active IBUPROFEN 800 MG TABS take one po Q 8 hours IBU PROFEN 78959672105 No Longer Active Arie Casper MD Active [facility] TUSSIN COUGH/COLD CF 5-10-100 MG/5ML LIQD 2 teaspoons ev eliud 4 hours [id number]-JX-VM 25860308154 No Longer Active Blaine Casper MD Active COMTREX COLD/COUGH DAY/NITE MS 5-2-10-325 MG MISC 2 caps deja ry 4 hours [id number]-HFF-IJ-APAP 50858886218 No Longer Active Da vimason Casper MD Active CHLORASEPTIC MAX SORE THROAT 15-10 MG LOZG 1 every 2 hours prn 2 BENZOCAINE-MENTHOL 90740363492 No Longer Active Arie Marcelo Active PREDNISONE 20 MG TAB 2 tabs daily for 3 days, 1 t ab daily for 3 days, 1/2 tab daily for 2 days PREDNISONE 88848554132 No Longer Active Jose Zhong MD Active AZITHROMYCIN 250 MG TABS 2 po qd x 1 day, then 1 po qd x 4 days AZITHROMYCIN 76566526515 No Longer Active Jose Zhong MD Active ZOFRAN ODT 4 MG TBDP 1 po q6hr PRN Nausea ONDAN SETRON 88877535110 No Longer Active Rich Rosales MD Active ZOFRAN 4 MG TABS 1 tablet every 4 hours ONDANSE JERRELL HCL 77964212150 No Longer Active Rich Rosales MD Active MUCINEX 600 MG [id number]-BDM Take 1-2 tablets every 12 hours GUAIFENESIN 48423807212 No Longer Active Rich Rosales MD Activ e BACTRIM 400-80 MG TABS take one po BID SULFAMETHOXAZOLE-TRIMETHOPRIM 70684876480 No Longer Active Abelardo HERNANDEZ Active AZITHROMYCIN 500 MG TABS 1 PO q day x 6 days AZ ITHROMYCIN 30564557864 No Longer Active Tin HERNANDEZ Active ZITHROMAX 250 MG TAB 2 po today, then 1 po q days 2-5 AZITHROMYCIN 33633685862 No Longer Active Arie Casper MD Acti ve ZITHROMAX 250 MG TAB 2 po today, then 1 po q days 2-5 AZITHROMYCIN 79434440200 No Longer Active Arie Casper MD Acti ve AMOXICILLIN 500 MG CAP 1 tab by mouth 3 times daily 20 09/23/20 AMOXICILLIN 88191778026 No Longer Active Arie Casper MD Acti ve BACTRIM DS 800-160 MG TAB 1 tab by mouth twice daily 2 TRIMETHOPRIM-SULFAMETHOXAZOLE 07565515916 No Longer Active Arie Casper MD Active AMOXICILLIN 500 MG TABS take 1 tab po TID AMOXI CILLIN 32401005181 No Longer Active Arie Casper MD Active BACTRIM DS 800-160 MG TAB 1 tab by mouth twice daily 2 BACTRIM DS 800-160 MG TAB 710726 TRIMETHOPRIM-SULFAMETHOXAZOLE Inac tive MUCINEX 600 MG [id number] Take 1-2 tablets every 12 hours MUCINEX 600 MG [id number]-ZXU GUAIFENESIN Inactive ZOFRAN 4 MG TABS 1 tablet every 4 hours ZOFRAN 4 MG TABS 008489 ONDANSETRON HCL Inactive ZOFRAN ODT 4 MG TBDP 1 po q6hr PRN Nausea ZOFRAN ODT 4 MG TBDP 249236 ONDANSETRON Inactive CHLORASEPTIC MAX SORE THROAT 15-10 MG LOZG 1 every 2 hours prn 2 /04/30 CHLORASEPTIC MAX SORE THROAT 15-10 MG LOZG BENZO ARINA-MENTHOL Inactive COMTREX COLD/COUGH DAY/NITE MS 5-2-10-325 MG MISC 2 caps deja ry 4 hours COMTREX COLD/COUGH DAY/NITE MS 5-2-10-325 MG MIS C [id number]-APAP Inactive [facility]S TUSSIN COUGH/COLD CF 5-10-100 MG/5ML LIQD 2 teaspoons ev eliud 4 hours [facility]S TUSSIN COUGH/COLD CF 5-10-100 MG/5ML LIQD UKRHOTQYRDEQM-WR-FF Inactive IBUPROFEN 800 MG TABS take one po Q 8 hours IBUPROFEN 800 MG TABS 432292 IBUPROFEN Inactive VITAMINS 0.8 MG TABS take 1 tab po qday 08/08 VITAMINS 0.8 MG TABS [id number]-XL-FA Inactive TESSALON PERLES 100 MG CAP 1 tablet by mouth 3 times daily 11/01 TESSALON PERLES 100 MG CAP 468988 BENZONATATE Inact zaid AMOXICILLIN 500 MG CAP 1 tab by mouth 3 times daily 08/12/16 AMOXICILLIN 500 MG CAP 248579 AMOXICILLIN Inactive GUAIFENESIN-CODEINE 100-10 MG/5ML ORAL SYRP 2 tsp every 6 hours prn GUAIFENESIN-CODEINE 100-10 MG/5ML ORAL SYRP 336376 GUAIFENESIN-CODEINE Inactive VICKS DAYQUIL SEVERE COLD/FLU TABS 1 tab every 6 hours prn 12/10 VICKS DAYQUIL SEVERE COLD/FLU TABS PHENYLEPHRINE -DM-GG-APAP TABS Inactive BACTRIM DS 800-160 MG TABS 1 twice a day BACTRIM DS 800- 160 MG TABS 756146 SULFAMETHOXAZOLE-TRIMETHOPRIM Inactive PROMETHAZINE HCL 25 MG TABS 1 four times a day as needed for vomiting PROMETHAZINE HCL 25 MG TABS 968031 PROMETHAZINE HCL Inactive ZYRTEC ALLERGY 10 MG CAPS 1 po qd ZY RTEC ALLERGY 10 MG CAPS CETIRIZINE HCL Inactive MACROBID 100 MG CAP 1 cap by mouth twice daily MACROBID 100 MG CAP 0493512 NITROFURANTOIN MONOHYD MACRO Inactive LOMOTIL 2.5-0.025 MG TABS 1 to 2 four times a day as needed for diarrhea LOMOTIL 2.5-0.025 MG TABS 3279521 DIPHENOXYLATE-A TROPINE Inactive CYCLOBENZAPRINE HCL 10 MG TABS 1/2 - 1 tablet by mouth three times daily as needed for muscle spasm/pain CYCLOBENZAP RINE HCL 10 MG TABS 285704 CYCLOBENZAPRINE HCL Inactive AMOXICILLIN 500 MG TABS 2 tabs twice a day for 10 days AMOXICILLIN 500 MG TABS 005416 AMOXICILLIN Inactive LOMOTIL 2.5-0.025 MG TAB 1 to 2 four times a day as needed f or diarrhea LOMOTIL 2.5-0.025 MG TAB 6825010 DIPHENOXYLATE-AT ROPINE Inactive ZOFRAN 4 MG ORAL TABS 1 TAB PO Q 6 HRS PRN NAUSEA 2014 ZOFRAN 4 MG ORAL TABS 331754 ONDANSETRON HCL Inactive CITRATE OF MAGNESIA ORAL SOLN 1 bottle today for constipation 20 07/10/15 CITRATE OF MAGNESIA ORAL SOLN 8198378 MAGNESIUM CITRATE Inactive PROMETHAZINE HCL 12.5 MG TABS 1 tablet by mouth every 6 hours as needed for nausea/vomiting PROMETHAZINE HCL 12.5 MG TABS 972790 PROMETHAZINE HCL Inactive PREDNISONE 20 MG TAB 1 tablet twice daily for 2 d ays, then 1 tablet once daily for 2 days PREDNISONE 20 MG TAB 457704 PREDNISONE Inac tive AMOXICILLIN 500 MG TABS take 1 tab po TID AMOXICILLIN 500 MG TABS 011979 AMOXICILLIN Inactive AMOXICILLIN 500 MG CAP 1 tab by mouth 3 times daily 09/23/20 AMOXICILLIN 500 MG CAP 960012 AMOXICILLIN Inactive ZITHROMAX 250 MG TAB 2 po today, then 1 po q days 2-5 ZITHROMAX 250 MG TAB 7650373 AZITHROMYCIN Inactive ZITHROMAX 250 MG TAB 2 po today, then 1 po q days 2-5 ZITHROMAX 250 MG TAB 5011167 AZITHROMYCIN Inactive AZITHROMYCIN 500 MG TABS 1 PO q day x 6 days 3 AZITHROMYCIN 500 MG TABS 6515612 AZITHROMYCIN Inactive BACTRIM 400-80 MG TABS take one po BID BA CTRIM 400-80 MG TABS 169915 SULFAMETHOXAZOLE-TRIMETHOPRIM Inactive AZITHROMYCIN 250 MG TABS 2 po qd x 1 day, then 1 po qd x 4 days AZITHROMYCIN 250 MG TABS 0155889 AZITHROMYCIN Inactiv e PREDNISONE 20 MG TAB 2 tabs daily for 3 days, 1 t ab daily for 3 days, 1/2 tab daily for 2 days PREDNISONE 20 MG TAB 165112 PREDNISON E Inactive ZITHROMAX 250 MG TAB 2 po today, then 1 po q days 2-5 ZITHROMAX 250 MG TAB 3425390 AZITHROMYCIN Inactive FLAGYL 500 MG TAB 1 tablet by mouth two times daily 07/11/29 FLAGYL 500 MG TAB 466123 METRONIDAZOLE Inactive AUGMENTIN 875-125 MG TAB 1 tab by mouth twice daily with food 20 08/12/16 AUGMENTIN 875-125 MG TAB 107125 AMOXICILLIN-POT CLAVULA ANGELO Inactive NAPROXEN 500 MG TAB one tab PO BID NAPROXEN 500 MG TAB 453461 NAPROXEN Inactive PREDNISONE 20 MG TAB 2 tabs daily for 3 days, 1 t ab daily for 3 days, 1/2 tab daily for 2 days PREDNISONE 20 MG TAB 677986 PREDNISON E Inactive AZITHROMYCIN 250 MG TABS 2 po qd x 1 day, then 1 po qd x 4 days AZITHROMYCIN 250 MG TABS 9836883 AZITHROMYCIN Inactiv e PREDNISONE 20 MG TAB 2 tabs daily for 3 days, 1 t ab daily for 3 days, 1/2 tab daily for 2 days PREDNISONE 20 MG TAB 766681 PREDNISON E Inactive ZITHROMAX Z-EMIL 250 MG TABS 2 today, then 1 daily for 4 days 201 03/31/18 ZITHROMAX Z-MEIL 250 MG TABS 9026350 AZITHROMYCIN Inac tive Advance Directives Directive Description [...] Panel - Chemistry sodium, serum 136 mmol/L 874-102 4842/04/26 carbon dioxide, venous blood 29.9 mmol/L 21.0-32 [...] - Chem istry sodium, serum 139 mmol/L 026-476 4307/12/15 carbon dioxide, venous blood 30.2 mmol/L 21.0-32 [...] Negative Encounters Code Encounter Date Provider Facility CPT-70100 Level 3 Est. Patient 09:24:42 CDT Steve ADAPTED PHYSICAL EDUCATION AIDE [facility] CPT-34726 Level 3 Est. Patient 09:12:56 CDT Arie mcqueen MD [facility] CPT-25075 Level 3 Est. Patient 16:40:54 CDT Jose Zhong MD [facility] CPT-02375 Level 2 Est. Patient 13:01:13 CDT Steve ADAPTED PHYSICAL EDUCATION AIDE [facility] CPT-66191 Level 3 Est. Patient 11:55:30 TRADING ASSISTANT Jono black DO [facility] CPT-18166 Level 3 Est. Patient 09:52:36 TRADING ASSISTANT Steve CABRERA [facility] CPT-47787 Level 3 Est. Patient 16:25:33 TRADING ASSISTANT Rich Rosales MD [facility] CPT-72677 Level 3 Est. Patient 20:33:55 CDT Arie mcqueen MD [facility] CPT-00252 Level 3 Est. Patient 14:18:20 CDT Rich Rosales MD [facility] CPT-66411 Level 4 Est. Patient 09:34:31 CDT Arie mcqueen MD [facility]-00537 Level 3 Est. Patient 09:08:55 TRADING ASSISTANT Liliana vincent MD PhD [facility]-80316 Level 3 Est. Patient 16:44:07 TRADING ASSISTANT Arie mcqueen MD [facility]-96087 Level 3 Est. Patient 10:44:27 CDT Arie mcqueen MD [facility]-06717 Level 3 Est. Patient 08:55:41 CDT Jose Zhong MD [facility] CPT-42017 Level 3 Est. Patient 18:37:31 CDT Liliana vincent MD PhD [facility] CPT-24415 Level 3 Est. Patient 14:28:23 CDT Abelardo HERNANDEZ [facility]-78357 Level 3 Est. Patient 15:18:13 TRADING ASSISTANT Arie mcqueen MD [facility] CPT-32485 Level 3 Est. Patient 10:11:29 TRADING ASSISTANT Arie mcqueen MD [facility] CPT-10182 Level 3 Est. Patient 10:55:57 TRADING ASSISTANT Jono black DO [facility]-14318 Level 3 Est. Patient 17:29:05 CDT Arie mcqueen MD [facility] Procedures Code Procedure Name Date Entry Date Standard Desc ription CPT-94361 First Vx - Ix admin via ID I M or jet injects without counseling by physician 16:57:10 CDT CPT-02840 Fluzone Preservative Free Intramuscular Suspension 16:57:10 CDT CPT-J0696 Rocephin 1000 mg (Ceftriaxone) 11:49:23 CDT CPT-J1040 Depo Medrol 80 mg (Methyl Prednisolone A cetate) 11:49:23 CDT CPT-J1100 Decadron 8mg (Dexamethasone) 11:49:23 CDT 2 CPT-24961 Abx/Therapy Injection 11:49:23 CDT CPT-03737 Abx/Therapy Injection 11:49:23 CDT CPT-76523 Abd compl w upright 09:07:26 TRADING ASSISTANT CPT-58845 Ear Wash 16:12:47 TRADING ASSISTANT CPT-OV Office Visit 11:12:01 CDT CPT-OV Office Visit 15:30:23 CDT CPT-72316 Sono pelvis non OB uterus ovaries cervix 15:50:44 CDT CPT-86761 Hand comp min 3V 16:42:32 CDT CPT-13138 Abd compl w upright 12:17:01 CDT CPT-94426 Nexplanon Placement 15:07:39 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
--- OUTSIDE RECORDS SUMMARY | 2020-03-03 08:35 | XMS REPORT | Clinical Summary ---
Author Author Admin, Diamante Marcelo Organization [employer] Address Unknown Phone Unavailable Allergies, Adverse Reactions, [...] site Abdominal pain 789.00 Active Brii Larson ADMINISTRATION INTERN Abdominal pain, unspecified site Diarrhea 787.91 Resolved [...] cute pharyngitis Nausea 787.02 Active Brii Larson ADMINISTRATION INTERN Nausea alone URI 465.9 Active Jono [...] Anxiety with depression 300.4 Active Glenn Larson ADMINISTRATION INTERN Dysthymic disorder URI 465.9 Active Jono Gagonn DO Acu te upper respiratory infections of [...] MG TAB Take 1 tab BID NAPROXEN 836623904 15 Active Brii Larson APRN Active NEXPLANON IMPL Left arm subcutaneously ETONOGES TREL IMPL 73299392809 Active Brii Larson APRN Active CEFDINIR 300 MG CAPS 1 po BID x 10 days CEFDINI R 03070071136 No Longer Active Brii Larson APRN Active PREDNISONE 20 MG TAB 1 tablet daily for airway inflammation 2015 PREDNISONE 21297249159 No Longer Active Brii Larson APRN Active CEFDINIR 300 MG CAPS 1 po BID x 10 days CEFDINI R 17211814463 No Longer Active Jono W Kalin DO Active FLONASE 50 MCG/ACT SUSP 1 spray each nostril twice d aily for allergies and runny nose until gone FLUTICASONE PROPIONATE No Longe r Active Jono Gagnon DO Active ALPRAZOLAM 0.25 MG TAB 1 tablet by mouth every 8 hours as ne eded for stress ALPRAZOLAM 40141533243 No Longer Active Jono Gagnon DO Active ZOLOFT 50 MG TAB 1 tablet by mouth daily SERTRA LINE HCL 37348615576 Active Arie Casper MD Active LOMOTIL 2.5-0.025 MG TAB 1 tab po four times a day as needed for diarrhea DIPHENOXYLATE-ATROPINE 45726635075 Active Brii Larson APRN Active ZITHROMAX Z-EMIL 250 MG TABS 2 today, then 1 daily for 4 days 201 03/31/18 AZITHROMYCIN 82224573891 No Longer Active Arie Casper MD Active PROTONIX 40 MG ORAL TBEC 1 po q a.m. PANTOPRAZO LE SODIUM 26415622319 Active Arie Casper MD Active PREDNISONE 20 MG TAB 2 tabs daily for 3 days, 1 t ab daily for 3 days, 1/2 tab daily for 2 days PREDNISONE 31744316787 No Longer Active Brii Larson APRN Active PREDNISONE 20 MG TAB 1 tablet twice daily for 2 d ays, then 1 tablet once daily for 2 days PREDNISONE 49320902285 No Longer Active Brii Larson APRN Active PROMETHAZINE HCL 12.5 MG TABS 1 tablet by mouth every 6 hours as needed for nausea/vomiting PROMETHAZINE HCL 42141620622 No Longe r Active Jono Gagnon DO Active CITRATE OF MAGNESIA ORAL SOLN 1 bottle today for constipation 20 07/10/15 MAGNESIUM CITRATE 77141627265 No Longer Active Jono Gagnon DO Active ZOFRAN 4 MG ORAL TABS 1 TAB PO Q 6 HRS PRN NAUSEA 2014 ONDANSETRON HCL 64168224058 No Longer Active Brii Larson APRN A ctive LOMOTIL 2.5-0.025 MG TAB 1 to 2 four times a day as needed f or diarrhea DIPHENOXYLATE-ATROPINE 39594106061 No Longer Active January Larson APRN Active AMOXICILLIN 500 MG TABS 2 tabs twice a day for 10 days AMOXICILLIN 47137947727 No Longer Active Brii Larson APRN Acti ve CYCLOBENZAPRINE HCL 10 MG TABS 1/2 - 1 tablet by mouth three times daily as needed for muscle spasm/pain CYCLOBENZAPRINE HCL 99184810620 No Longer Active Arie Casper MD Active LOMOTIL 2.5-0.025 MG TABS 1 to 2 four times a day as needed for diarrhea DIPHENOXYLATE-ATROPINE 29267031673 No Longer Active D freddy Casper MD Active MACROBID 100 MG CAP 1 cap by mouth twice daily NITROFURANTOIN MONOHYD MACRO 75549408060 No Longer Active Arie Casper MD Active ZYRTEC ALLERGY 10 MG CAPS 1 po qd CETIRIZINE HCL 88790815399 No Longer Active Arie Casper MD Active AZITHROMYCIN 250 MG TABS 2 po qd x 1 day, then 1 po qd x 4 days AZITHROMYCIN 57921022132 No Longer Active Jillina Frazelanette CABRERA Active PREDNISONE 20 MG TAB 2 tabs daily for 3 days, 1 t ab daily for 3 days, 1/2 tab daily for 2 days PREDNISONE 25494645503 No Longer Active Jillina Frazell RICK Active PROMETHAZINE HCL 25 MG TABS 1 four times a day as needed for vomiting PROMETHAZINE HCL 48012187947 No Longer Active Myrna Roberto MD Active BACTRIM DS 800-160 MG TABS 1 twice a day SULFAMETHOXAZOLE-TRIMETHOPRIM 82762345458 No Longer Active Myrna Roberto MD Active VICKS DAYQUIL SEVERE COLD/FLU TABS 1 tab every 6 hours prn 12/10 [id number]-APAP TABS 06017417687 No Longer Active Myrna leigh MD Active GUAIFENESIN-CODEINE 100-10 MG/5ML ORAL SYRP 2 tsp every 6 hours prn GUAIFENESIN-CODEINE 36612932518 No Longer Active Myrna Roberto MD Active NAPROXEN 500 MG TAB one tab PO BID NAPROXEN 332 23163955 No Longer Active Myrna Roberto MD Active AUGMENTIN 875-125 MG TAB 1 tab by mouth twice daily with food 20 08/12/16 AMOXICILLIN-POT CLAVULANATE 54183069757 No Longer Active Liliana Estrada MD PhD Active AMOXICILLIN 500 MG CAP 1 tab by mouth 3 times daily 08/12/16 AMOXICILLIN 00986120341 No Longer Active Liliana Estrada MD PhD Acti ve TESSALON PERLES 100 MG CAP 1 tablet by mouth 3 times daily 11/01 BENZONATATE 03717993240 No Longer Active Liliana Estrada MD PhD Active FLAGYL 500 MG TAB 1 tablet by mouth two times daily 07/11/29 METRONIDAZOLE 36431634992 No Longer Active Nilam Weber Active ZITHROMAX 250 MG TAB 2 po today, then 1 po q days 2-5 AZITHROMYCIN 74992526744 No Longer Active Arie Casper MD Acti ve VITAMINS 0.8 MG TABS take 1 tab po qday 08/08 [id number] 33339903134 No Longer Active Arie Casper MD Active IBUPROFEN 800 MG TABS take one po Q 8 hours IBU PROFEN 73191564349 No Longer Active Arie Casper MD Active [facility] TUSSIN COUGH/COLD CF 5-10-100 MG/5ML LIQD 2 teaspoons ev eliud 4 hours [id number]-[id number] 10837738470 No Longer Active Blaine Casper MD Active COMTREX COLD/COUGH DAY/NITE MS 5-2-10-325 MG MISC 2 caps deja ry 4 hours [id number]-APAP 54972997663 No Longer Active Da aleksandra Casper MD Active CHLORASEPTIC MAX SORE THROAT 15-10 MG LOZG 1 every 2 hours prn 2 BENZOCAINE-MENTHOL 60757095313 No Longer Active Arie Marcelo Active PREDNISONE 20 MG TAB 2 tabs daily for 3 days, 1 t ab daily for 3 days, 1/2 tab daily for 2 days PREDNISONE 53978414323 No Longer Active Jose Zhong MD Active AZITHROMYCIN 250 MG TABS 2 po qd x 1 day, then 1 po qd x 4 days AZITHROMYCIN 87687800336 No Longer Active Jose Zhong MD Active ZOFRAN ODT 4 MG TBDP 1 po q6hr PRN Nausea ONDAN SETRON 33365173430 No Longer Active Rich Rosales MD Active ZOFRAN 4 MG TABS 1 tablet every 4 hours ONDANSE JERRELL HCL 56586584119 No Longer Active Rich Rosales MD Active MUCINEX 600 MG [id number]-[id number] Take 1-2 tablets every 12 hours GUAIFENESIN 79596487778 No Longer Active Rich Rosales MD Activ e BACTRIM 400-80 MG TABS take one po BID SULFAMETHOXAZOLE-TRIMETHOPRIM 52763290781 No Longer Active Abelardo HERNANDEZ Active AZITHROMYCIN 500 MG TABS 1 PO q day x 6 days AZ ITHROMYCIN 42773637637 No Longer Active Tin HERNANDEZ Active ZITHROMAX 250 MG TAB 2 po today, then 1 po q days 2-5 AZITHROMYCIN 50378201859 No Longer Active Arie Casper MD Acti ve ZITHROMAX 250 MG TAB 2 po today, then 1 po q days 2-5 AZITHROMYCIN 85119937754 No Longer Active Arie Casper MD Acti ve AMOXICILLIN 500 MG CAP 1 tab by mouth 3 times daily 20 09/23/20 AMOXICILLIN 14305348921 No Longer Active Arie Casper MD Acti ve BACTRIM DS 800-160 MG TAB 1 tab by mouth twice daily 2 TRIMETHOPRIM-SULFAMETHOXAZOLE 73393605246 No Longer Active Arie Casper MD Active AMOXICILLIN 500 MG TABS take 1 tab po TID AMOXI CILLIN 39483112058 No Longer Active Arie Casper MD Active BACTRIM DS 800-160 MG TAB 1 tab by mouth twice daily 2 BACTRIM DS 800-160 MG TAB 035282 TRIMETHOPRIM-SULFAMETHOXAZOLE Inac tive MUCINEX 600 MG [id number]-DVS Take 1-2 tablets every 12 hours MUCINEX 600 MG [id number] GUAIFENESIN Inactive ZOFRAN 4 MG TABS 1 tablet every 4 hours ZOFRAN 4 MG TABS 449637 ONDANSETRON HCL Inactive ZOFRAN ODT 4 MG TBDP 1 po q6hr PRN Nausea ZOFRAN ODT 4 MG TBDP 810308 ONDANSETRON Inactive CHLORASEPTIC MAX SORE THROAT 15-10 MG LOZG 1 every 2 hours prn 2 CHLORASEPTIC MAX SORE THROAT 15-10 MG LOZG BENZO ARINA-MENTHOL Inactive COMTREX COLD/COUGH DAY/NITE MS 5-2-10-325 MG MISC 2 caps deja ry 4 hours COMTREX COLD/COUGH DAY/NITE MS 5-2-10-325 MG MIS C [id number] Inactive [facility] TUSSIN COUGH/COLD CF 5-10-100 MG/5ML LIQD 2 teaspoons ev eliud 4 hours [facility] TUSSIN COUGH/COLD CF 5-10-100 MG/5ML LIQD [id number] Inactive IBUPROFEN 800 MG TABS take one po Q 8 hours IBUPROFEN 800 MG TABS IBUPROFEN Inactive VITAMINS 0.8 MG TABS take 1 tab po qday 08/08 VITAMINS 0.8 MG TABS [id number]-FA Inactive TESSALON PERLES 100 MG CAP 1 tablet by mouth 3 times daily 11/01 TESSALON PERLES 100 MG CAP 069346 BENZONATATE Inact zaid AMOXICILLIN 500 MG CAP 1 tab by mouth 3 times daily 08/12/16 AMOXICILLIN 500 MG CAP 955856 AMOXICILLIN Inactive GUAIFENESIN-CODEINE 100-10 MG/5ML ORAL SYRP 2 tsp every 6 hours prn GUAIFENESIN-CODEINE 100-10 MG/5ML ORAL SYRP 156277 GUAIFENESIN-CODEINE Inactive VICKS DAYQUIL SEVERE COLD/FLU TABS 1 tab every 6 hours prn 12/10 VICKS DAYQUIL SEVERE COLD/FLU TABS PHENYLEPHRINE -DM-GG-APAP TABS Inactive BACTRIM DS 800-160 MG TABS 1 twice a day BACTRIM DS 800- 160 MG TABS 834693 SULFAMETHOXAZOLE-TRIMETHOPRIM Inactive PROMETHAZINE HCL 25 MG TABS 1 four times a day as needed for vomiting PROMETHAZINE HCL 25 MG TABS 866013 PROMETHAZINE HCL Inactive ZYRTEC ALLERGY 10 MG CAPS 1 po qd ZY RTEC ALLERGY 10 MG CAPS CETIRIZINE HCL Inactive MACROBID 100 MG CAP 1 cap by mouth twice daily MACROBID 100 MG CAP 5296674 NITROFURANTOIN MONOHYD MACRO Inactive LOMOTIL 2.5-0.025 MG TABS 1 to 2 four times a day as needed for diarrhea LOMOTIL 2.5-0.025 MG TABS 4593008 DIPHENOXYLATE-A TROPINE Inactive CYCLOBENZAPRINE HCL 10 MG TABS 1/2 - 1 tablet by mouth three times daily as needed for muscle spasm/pain CYCLOBENZAP RINE HCL 10 MG TABS 410372 CYCLOBENZAPRINE HCL Inactive AMOXICILLIN 500 MG TABS 2 tabs twice a day for 10 days AMOXICILLIN 500 MG TABS 290160 AMOXICILLIN Inactive LOMOTIL 2.5-0.025 MG TAB 1 to 2 four times a day as needed f or diarrhea LOMOTIL 2.5-0.025 MG TAB 9495794 DIPHENOXYLATE-AT ROPINE Inactive ZOFRAN 4 MG ORAL TABS 1 TAB PO Q 6 HRS PRN NAUSEA 2014 ZOFRAN 4 MG ORAL TABS 493377 ONDANSETRON HCL Inactive CITRATE OF MAGNESIA ORAL SOLN 1 bottle today for constipation 20 07/10/15 CITRATE OF MAGNESIA ORAL SOLN 9106468 MAGNESIUM CITRATE Inactive PROMETHAZINE HCL 12.5 MG TABS 1 tablet by mouth every 6 hours as needed for nausea/vomiting PROMETHAZINE HCL 12.5 MG TABS 631154 PROMETHAZINE HCL Inactive PREDNISONE 20 MG TAB 1 tablet twice daily for 2 d ays, then 1 tablet once daily for 2 days PREDNISONE 20 MG TAB 296784 PREDNISONE Inac tive ALPRAZOLAM 0.25 MG TAB 1 tablet by mouth every 8 hours as ne eded for stress ALPRAZOLAM 0.25 MG TAB 858827 ALPRAZOLAM Inact zaid FLONASE 50 MCG/ACT SUSP 1 spray each nostril twice d aily for allergies and runny nose until gone FLONASE 50 MCG/ACT SUSP F LUTICASONE PROPIONATE Inactive PREDNISONE 20 MG TAB 1 tablet daily for airway inflammation 2015 PREDNISONE 20 MG TAB 704161 PREDNISONE Inactive AMOXICILLIN 500 MG TABS take 1 tab po TID AMOXICILLIN 500 MG TABS 149305 AMOXICILLIN Inactive AMOXICILLIN 500 MG CAP 1 tab by mouth 3 times daily 09/23/20 AMOXICILLIN 500 MG CAP 658459 AMOXICILLIN Inactive ZITHROMAX 250 MG TAB 2 po today, then 1 po q days 2-5 ZITHROMAX 250 MG TAB 0316057 AZITHROMYCIN Inactive ZITHROMAX 250 MG TAB 2 po today, then 1 po q days 2-5 ZITHROMAX 250 MG TAB 7709390 AZITHROMYCIN Inactive AZITHROMYCIN 500 MG TABS 1 PO q day x 6 days 3 AZITHROMYCIN 500 MG TABS 7920725 AZITHROMYCIN Inactive BACTRIM 400-80 MG TABS take one po BID BA CTRIM 400-80 MG TABS 965830 SULFAMETHOXAZOLE-TRIMETHOPRIM Inactive AZITHROMYCIN 250 MG TABS 2 po qd x 1 day, then 1 po qd x 4 days AZITHROMYCIN 250 MG TABS 0901829 AZITHROMYCIN Inactiv e PREDNISONE 20 MG TAB 2 tabs daily for 3 days, 1 t ab daily for 3 days, 1/2 tab daily for 2 days PREDNISONE 20 MG TAB 660629 PREDNISON E Inactive ZITHROMAX 250 MG TAB 2 po today, then 1 po q days 2-5 ZITHROMAX 250 MG TAB 3685938 AZITHROMYCIN Inactive FLAGYL 500 MG TAB 1 tablet by mouth two times daily 07/11/29 FLAGYL 500 MG TAB 236985 METRONIDAZOLE Inactive AUGMENTIN 875-125 MG TAB 1 tab by mouth twice daily with food 20 08/12/16 AUGMENTIN 875-125 MG TAB 019633 AMOXICILLIN-POT CLAVULA AGNELO Inactive NAPROXEN 500 MG TAB one tab PO BID NAPROXEN 500 MG TAB 591011 NAPROXEN Inactive PREDNISONE 20 MG TAB 2 tabs daily for 3 days, 1 t ab daily for 3 days, 1/2 tab daily for 2 days PREDNISONE 20 MG TAB 708484 PREDNISON E Inactive AZITHROMYCIN 250 MG TABS 2 po qd x 1 day, then 1 po qd x 4 days AZITHROMYCIN 250 MG TABS 4945402 AZITHROMYCIN Inactiv e PREDNISONE 20 MG TAB 2 tabs daily for 3 days, 1 t ab daily for 3 days, 1/2 tab daily for 2 days PREDNISONE 20 MG TAB 814454 PREDNISON E Inactive ZITHROMAX Z-EMIL 250 MG TABS 2 today, then 1 daily for 4 days 201 03/31/18 ZITHROMAX Z-EMIL 250 MG TABS 4613251 AZITHROMYCIN Inac tive CEFDINIR 300 MG CAPS [...] Panel - Chemistry sodium, serum 136 mmol/L 519-127 7347/04/26 carbon dioxide, venous blood 29.9 mmol/L 21.0-32 [...] Negative Encounters Code Encounter Date Provider Facility CPT-38965 Level 3 Est. Patient 15:18:16 OPERATIONS DISPATCHER Jono black [facility] CPT-09959 Level 4 Est. Patient 12:08:40 OPERATIONS DISPATCHER Steve Formerly named [facility] CPT-14223 Level 3 Est. Patient 09:24:42 CDT Steve Formerly named [facility] CPT-89123 Level 3 Est. Patient 09:12:56 CDT Arie mcqueen MD [facility] CPT-36301 Level 3 Est. Patient 16:40:54 CDT Jose Zhong MD [facility] CPT-16547 Level 2 Est. Patient 13:01:13 CDT Steve Formerly named [facility] CPT-16579 Level 3 Est. Patient 11:55:30 OPERATIONS DISPATCHER Jono black [facility] CPT-33760 Level 3 Est. Patient 09:52:36 OPERATIONS DISPATCHER Steve [facility] CPT-02686 Level 3 Est. Patient 16:25:33 OPERATIONS DISPATCHER Rich Rosales MD [facility]-01830 Level 3 Est. Patient 20:33:55 CDT Arie mcqueen MD [facility]-61930 Level 3 Est. Patient 14:18:20 CDT Rich Rosales MD [facility]-92154 Level 4 Est. Patient 09:34:31 CDT Arie mcqueen MD [facility]-95137 Level 3 Est. Patient 09:08:55 OPERATIONS DISPATCHER Liliana vincent MD [facility]-01759 Level 3 Est. Patient 16:44:07 OPERATIONS DISPATCHER Arie mcqueen MD [facility]-05298 Level 3 Est. Patient 10:44:27 CDT Arie mcqueen MD [facility]-32642 Level 3 Est. Patient 08:55:41 CDT Jose Zhong MD [facility]-25879 Level 3 Est. Patient 18:37:31 CDT Liliana vincent MD [facility]-20196 Level 3 Est. Patient 14:28:23 CDT Abelardo HERNANDEZ [facility]-81292 Level 3 Est. Patient 15:18:13 OPERATIONS DISPATCHER Arie mcqueen MD [facility]-75595 Level 3 Est. Patient 10:11:29 OPERATIONS DISPATCHER Arie mcqueen MD [facility]-26906 Level 3 Est. Patient 10:55:57 OPERATIONS DISPATCHER Jono black DO [facility]-68921 Level 3 Est. Patient 17:29:05 CDT Arie mcqueen MD [facility] Procedures Code Procedure Name Date Entry Date Standard Desc ription CPT-37152 Sono transvag pelvis non OB uterus ovari es cervix - XRAY USE ONLY 08:58:14 OPERATIONS DISPATCHER CPT-45956 UA w micro - LAB USE ONLY 16:04:56 OPERATIONS DISPATCHER 2015 CPT-32601 Wet Prep/GEN - LAB USE ONLY 16:04:56 OPERATIONS DISPATCHER 20 08/10/29 CPT-10985 First Vx - Ix admin via ID I M or jet injects without counseling by physician 16:57:10 CDT CPT-06050 Fluzone Preservative Free Intramuscular Suspension 16:57:10 CDT CPT-J0696 Rocephin 1000 mg (Ceftriaxone) 11:49:23 CDT CPT-J1040 Depo Medrol 80 mg (Methyl Prednisolone A cetate) 11:49:23 CDT CPT-J1100 Decadron 8mg (Dexamethasone) 11:49:23 CDT 2 CPT-68425 Abx/Therapy Injection 11:49:23 CDT CPT-71686 Abx/Therapy Injection 11:49:23 CDT CPT-80384 Abd compl w upright 09:07:26 OPERATIONS DISPATCHER CPT-32177 Ear Wash 16:12:47 OPERATIONS DISPATCHER CPT-OV Office Visit 11:12:01 CDT CPT-OV Office Visit 15:30:23 CDT CPT-63090 Sono pelvis non OB uterus ovaries cervix 15:50:44 CDT CPT-86402 Hand comp min 3V 16:42:32 CDT CPT-48148 Abd compl w upright 12:17:01 CDT CPT-33016 Nexplanon Placement 15:07:39 OPERATIONS DISPATCHER CPT-87914 Removal of IUD 15:07:39 OPERATIONS DISPATCHER CPT-10949 TB Tubersol 12:09:32 CDT CPT-92903 TB Tubersol 13:55:43 CDT
--- OUTSIDE RECORDS SUMMARY | 2020-03-03 08:35 | XMS REPORT | Clinical Summary ---
Author Author Admin, Diamante Marcelo Organization [facility] Address Unknown Phone Unavailable Allergies, Adverse [...] cute pharyngitis Nausea 787.02 Active Brii Larson PULL TAB DEALER Nausea alone URI 465.9 Active Jono Gagnon DO Acu te upper respiratory infections of unspecified site Allergic rhinitis 477.9 Active Brii Christianson PRN Allergic rhinitis, cause unspecified Abdominal pain, right lower quadrant 789.03 Active Jose Zhong MD Abdominal pain, right lower quadrant Urinary frequency 788.41 Inactive Roseann Crawford Urinary frequency Urinary frequency 788.41 Active 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, HYDROMETER TESTER Urinary frequency Sinusitis - acute 461.9 Active Brii Christianson PRN Acute sinusitis, unspecified Anxiety with depression 300.4 Active Glenn Larson PULL TAB DEALER Dysthymic disorder URI 465.9 Active Jono Gagnon [...] Jose Marcelo Thumb pain, right ICD-729.5 Inactive Joes pelayo MD Sinusitis, acute ICD-461.9 Inactive Liliana cheema MD PhD Fever ICD-780.60 Inactive Liliana Estrada MD PhD 20 08/12/16 Symptom, cough ICD-786.2 Inactive Liliana Estrada MD PhD Vaginal discharge ICD-623.5 Inactive Liliana lares MD PhD Medication List Medication Instructions Start Date Stop Date Generic Name NDC Status Provider Patient Instruction NEXPLANON IMPL right arm subcutaneously ETONOGE STREL IMPL [id number] No Longer Active Brii Larson APRN Active TUSSIONEX PENNKINETIC ER 10-8 MG/5ML LQCR 5ml po q12hr PRN Cough HYDROCOD POLST-CHLORPHEN POLST 96984326989 No Longer Active Brii Larson APRN Active CETIRIZINE HCL 10 MG ORAL TABS 1 po qd PRN Allergies 2 CETIRIZINE HCL 36637237243 No Longer Active Brii Larson APRN Ac tive PREDNISONE 20 MG TAB 2 tabs daily for 3 days, 1 t ab daily for 3 days, 1/2 tab daily for 2 days PREDNISONE 16005034473 No Longer Active Arie Casper MD Active LOMOTIL 2.5-0.025 MG TAB 1 tab po four times a day as needed for diarrhea DIPHENOXYLATE-ATROPINE 63191189203 No Longer Active Fozia Casper MD Active ZOLOFT 50 MG TAB 1 tablet by mouth daily SERTRA LINE HCL 87307545861 No Longer Active Arie Casper MD Active NAPROXEN 500 MG TAB Take 1 tab BID NAPROXEN 332 84585784 No Longer Active Arie Casper MD Active CEFDINIR 300 MG CAPS 1 po BID x 10 days CEFDINI R 79680390681 No Longer Active Brii Larson APRN Active PREDNISONE 20 MG TAB 1 tablet daily for airway inflammation 2015 PREDNISONE 24319778093 No Longer Active Brii Larson APRN Active CEFDINIR 300 MG CAPS 1 po BID x 10 days CEFDINI R 78007722422 No Longer Active Jono Gagnon DO Active FLONASE 50 MCG/ACT SUSP 1 spray each nostril twice d aily for allergies and runny nose until gone FLUTICASONE PROPIONATE No Longe r Active Jono Gagnon DO Active ALPRAZOLAM 0.25 MG TAB 1 tablet by mouth every 8 hours as ne eded for stress ALPRAZOLAM 98400247381 No Longer Active Jono Gagnon DO Active ZITHROMAX Z-EMIL 250 MG TABS 2 today, then 1 daily for 4 days 201 03/31/18 AZITHROMYCIN 34408193010 No Longer Active Arie Casper MD Active PROTONIX 40 MG ORAL TBEC 1 po q a.m. PANTOPRAZO LE SODIUM 57561076179 Active Arie Casper MD Active PREDNISONE 20 MG TAB 2 tabs daily for 3 days, 1 t ab daily for 3 days, 1/2 tab daily for 2 days PREDNISONE 47962600510 No Longer Active Brii Larson APRN Active PREDNISONE 20 MG TAB 1 tablet twice daily for 2 d ays, then 1 tablet once daily for 2 days PREDNISONE 68531105274 No Longer Active Brii Larson APRN Active PROMETHAZINE HCL 12.5 MG TABS 1 tablet by mouth every 6 hours as needed for nausea/vomiting PROMETHAZINE HCL 40815530185 No Longe r Active Jono Gagnon DO Active CITRATE OF MAGNESIA ORAL SOLN 1 bottle today for constipation 20 07/10/15 MAGNESIUM CITRATE 22204859337 No Longer Active Jono Gagnon DO Active ZOFRAN 4 MG ORAL TABS 1 TAB PO Q 6 HRS PRN NAUSEA 2014 ONDANSETRON HCL 23424002588 No Longer Active Brii Larson APRN A ctive LOMOTIL 2.5-0.025 MG TAB 1 to 2 four times a day as needed f or diarrhea DIPHENOXYLATE-ATROPINE 38273576062 No Longer Active January Larson APRN Active AMOXICILLIN 500 MG TABS 2 tabs twice a day for 10 days AMOXICILLIN 01694818636 No Longer Active Brii Larson APRN Acti ve CYCLOBENZAPRINE HCL 10 MG TABS 1/2 - 1 tablet by mouth three times daily as needed for muscle spasm/pain CYCLOBENZAPRINE HCL 81158091811 No Longer Active Arie Casper MD Active LOMOTIL 2.5-0.025 MG TABS 1 to 2 four times a day as needed for diarrhea DIPHENOXYLATE-ATROPINE 11608346269 No Longer Active Fozia Casper MD Active MACROBID 100 MG CAP 1 cap by mouth twice daily NITROFURANTOIN MONOHYD MACRO 32303677493 No Longer Active Arie Casper MD Active ZYRTEC ALLERGY 10 MG CAPS 1 po qd CETIRIZINE HCL 48886634056 No Longer Active Arie Casper MD Active AZITHROMYCIN 250 MG TABS 2 po qd x 1 day, then 1 po qd x 4 days AZITHROMYCIN 89886844414 No Longer Active Jillina Frazell PULL TAB DEALER Active PREDNISONE 20 MG TAB 2 tabs daily for 3 days, 1 t ab daily for 3 days, 1/2 tab daily for 2 days PREDNISONE 66246575219 No Longer Active Jillina Frazell PULL TAB DEALER Active PROMETHAZINE HCL 25 MG TABS 1 four times a day as needed for vomiting PROMETHAZINE HCL 84825749426 No Longer Active Myrna Roberto MD Active BACTRIM DS 800-160 MG TABS 1 twice a day SULFAMETHOXAZOLE-TRIMETHOPRIM 13167940935 No Longer Active Myrna Roberto MD Active VICKS DAYQUIL SEVERE COLD/FLU TABS 1 tab every 6 hours prn 12/10 [id number]-APAP TABS 15781779668 No Longer Active Myrna leigh MD Active GUAIFENESIN-CODEINE 100-10 MG/5ML ORAL SYRP 2 tsp every 6 hours prn GUAIFENESIN-CODEINE 79428086922 No Longer Active Myrna Roberto MD Active NAPROXEN 500 MG TAB one tab PO BID NAPROXEN 332 19035417 No Longer Active Myrna Roberto MD Active AUGMENTIN 875-125 MG TAB 1 tab by mouth twice daily with food 20 08/12/16 AMOXICILLIN-POT CLAVULANATE 50932483373 No Longer Active Liliana Estrada MD PhD Active AMOXICILLIN 500 MG CAP 1 tab by mouth 3 times daily 20 08/12/16 AMOXICILLIN 24920461515 No Longer Active Liliana Estrada MD PhD Acti ve TESSALON PERLES 100 MG CAP 1 tablet by mouth 3 times daily 11/01 BENZONATATE 14968323907 No Longer Active Liliana Estrada MD PhD Active FLAGYL 500 MG TAB 1 tablet by mouth two times daily 20 07/11/29 METRONIDAZOLE 86362153252 No Longer Active Nilam Weber Active ZITHROMAX 250 MG TAB 2 po today, then 1 po q days 2-5 AZITHROMYCIN 10279776775 No Longer Active Arie Casper MD Acti ve VITAMINS 0.8 MG TABS take 1 tab po qday 08/08 [id number] 42366931416 No Longer Active Arie Casper MD Active IBUPROFEN 800 MG TABS take one po Q 8 hours IBU PROFEN 27819221996 No Longer Active Arie Casper MD Active [facility] TUSSIN COUGH/COLD CF 5-10-100 MG/5ML LIQD 2 teaspoons ev eliud 4 hours [id number] 17139604197 No Longer Active Blaine Casper MD Active COMTREX COLD/COUGH DAY/NITE MS 5-2-10-325 MG MISC 2 caps deja ry 4 hours [id number] 71995895927 No Longer Active Da aleksandra Casper MD Active CHLORASEPTIC MAX SORE THROAT 15-10 MG LOZG 1 every 2 hours prn 2 BENZOCAINE-MENTHOL 26352754060 No Longer Active Arie Marcelo Active PREDNISONE 20 MG TAB 2 tabs daily for 3 days, 1 t ab daily for 3 days, 1/2 tab daily for 2 days PREDNISONE 89497626611 No Longer Active Jose Zhong MD Active AZITHROMYCIN 250 MG TABS 2 po qd x 1 day, then 1 po qd x 4 days AZITHROMYCIN 36760628354 No Longer Active Jose Zhong MD Active ZOFRAN ODT 4 MG TBDP 1 po q6hr PRN Nausea ONDAN SETRON 79643866328 No Longer Active Rich Rosales MD Active ZOFRAN 4 MG TABS 1 tablet every 4 hours ONDANSE JERRELL HCL 64409408094 No Longer Active Rich Rosales MD Active MUCINEX 600 MG [id number] Take 1-2 tablets every 12 hours GUAIFENESIN 46017590181 No Longer Active Rich Rosales MD Activ e BACTRIM 400-80 MG TABS take one po BID SULFAMETHOXAZOLE-TRIMETHOPRIM 10648678959 No Longer Active Abelardo HERNANDEZ Active AZITHROMYCIN 500 MG TABS 1 PO q day x 6 days AZ ITHROMYCIN 22405487417 No Longer Active Tin HERNANDEZ Active ZITHROMAX 250 MG TAB 2 po today, then 1 po q days 2-5 AZITHROMYCIN 81130397085 No Longer Active Arie Casper MD Acti ve ZITHROMAX 250 MG TAB 2 po today, then 1 po q days 2-5 AZITHROMYCIN 55186241300 No Longer Active Arie Casper MD Acti ve AMOXICILLIN 500 MG CAP 1 tab by mouth 3 times daily 20 09/23/20 AMOXICILLIN 75448882937 No Longer Active Arie Casper MD Acti ve BACTRIM DS 800-160 MG TAB 1 tab by mouth twice daily 2 TRIMETHOPRIM-SULFAMETHOXAZOLE 82979126350 No Longer Active Arie Casper MD Active AMOXICILLIN 500 MG TABS take 1 tab po TID AMOXI CILLIN 32672767693 No Longer Active Arie Casper MD Active BACTRIM DS 800-160 MG TAB 1 tab by mouth twice daily 2 BACTRIM DS 800-160 MG TAB 363057 TRIMETHOPRIM-SULFAMETHOXAZOLE Inac tive MUCINEX 600 MG [id number] Take 1-2 tablets every 12 hours MUCINEX 600 MG [id number] GUAIFENESIN Inactive ZOFRAN 4 MG TABS 1 tablet every 4 hours ZOFRAN 4 MG TABS 678588 ONDANSETRON HCL Inactive ZOFRAN ODT 4 MG TBDP 1 po q6hr PRN Nausea ZOFRAN ODT 4 MG TBDP 866210 ONDANSETRON Inactive CHLORASEPTIC MAX SORE THROAT 15-10 MG LOZG 1 every 2 hours prn 2 /04/30 CHLORASEPTIC MAX SORE THROAT 15-10 MG LOZG BENZO ARINA-MENTHOL Inactive COMTREX COLD/COUGH DAY/NITE MS 5-2-10-325 MG MISC 2 caps deja ry 4 hours COMTREX COLD/COUGH DAY/NITE MS 5-2-10-325 MG MIS C [id number] Inactive [facility] TUSSIN COUGH/COLD CF 5-10-100 MG/5ML LIQD 2 teaspoons ev eliud 4 hours [facility] TUSSIN COUGH/COLD CF 5-10-100 MG/5ML LIQD [id number] Inactive IBUPROFEN 800 MG TABS take one po Q 8 hours IBUPROFEN 800 MG TABS 118351 IBUPROFEN Inactive VITAMINS 0.8 MG TABS take 1 tab po qday 08/08 VITAMINS 0.8 MG TABS [id number] Inactive TESSALON PERLES 100 MG CAP 1 tablet by mouth 3 times daily 11/01 TESSALON PERLES 100 MG CAP 042885 BENZONATATE Inact zaid AMOXICILLIN 500 MG CAP 1 tab by mouth 3 times daily 08/12/16 AMOXICILLIN 500 MG CAP 048677 AMOXICILLIN Inactive GUAIFENESIN-CODEINE 100-10 MG/5ML ORAL SYRP 2 tsp every 6 hours prn GUAIFENESIN-CODEINE 100-10 MG/5ML ORAL SYRP 838492 GUAIFENESIN-CODEINE Inactive VICKS DAYQUIL SEVERE COLD/FLU TABS 1 tab every 6 hours prn 12/10 VICKS DAYQUIL SEVERE COLD/FLU TABS PHENYLEPHRINE -DM-GG-APAP TABS Inactive BACTRIM DS 800-160 MG TABS 1 twice a day BACTRIM DS 800- 160 MG TABS 614532 SULFAMETHOXAZOLE-TRIMETHOPRIM Inactive PROMETHAZINE HCL 25 MG TABS 1 four times a day as needed for vomiting PROMETHAZINE HCL 25 MG TABS 761084 PROMETHAZINE HCL Inactive ZYRTEC ALLERGY 10 MG CAPS 1 po qd ZY RTEC ALLERGY 10 MG CAPS CETIRIZINE HCL Inactive MACROBID 100 MG CAP 1 cap by mouth twice daily MACROBID 100 MG CAP 5110336 NITROFURANTOIN MONOHYD MACRO Inactive LOMOTIL 2.5-0.025 MG TABS 1 to 2 four times a day as needed for diarrhea LOMOTIL 2.5-0.025 MG TABS 4287699 DIPHENOXYLATE-A TROPINE Inactive CYCLOBENZAPRINE HCL 10 MG TABS 1/2 - 1 tablet by mouth three times daily as needed for muscle spasm/pain CYCLOBENZAP RINE HCL 10 MG TABS 239889 CYCLOBENZAPRINE HCL Inactive AMOXICILLIN 500 MG TABS 2 tabs twice a day for 10 days AMOXICILLIN 500 MG TABS 706885 AMOXICILLIN Inactive LOMOTIL 2.5-0.025 MG TAB 1 to 2 four times a day as needed f or diarrhea LOMOTIL 2.5-0.025 MG TAB 7383807 DIPHENOXYLATE-AT ROPINE Inactive ZOFRAN 4 MG ORAL TABS 1 TAB PO Q 6 HRS PRN NAUSEA 2014 ZOFRAN 4 MG ORAL TABS 295918 ONDANSETRON HCL Inactive CITRATE OF MAGNESIA ORAL SOLN 1 bottle today for constipation 20 07/10/15 CITRATE OF MAGNESIA ORAL SOLN 2463530 MAGNESIUM CITRATE Inactive PROMETHAZINE HCL 12.5 MG TABS 1 tablet by mouth every 6 hours as needed for nausea/vomiting PROMETHAZINE HCL 12.5 MG TABS 539187 PROMETHAZINE HCL Inactive PREDNISONE 20 MG TAB 1 tablet twice daily for 2 d ays, then 1 tablet once daily for 2 days PREDNISONE 20 MG TAB 546389 PREDNISONE Inac tive ALPRAZOLAM 0.25 MG TAB 1 tablet by mouth every 8 hours as ne eded for stress ALPRAZOLAM 0.25 MG TAB 759147 ALPRAZOLAM Inact zaid FLONASE 50 MCG/ACT SUSP 1 spray each nostril twice d aily for allergies and runny nose until gone FLONASE 50 MCG/ACT SUSP 4583969 FLUTICASONE PROPIONATE Inactive PREDNISONE 20 MG TAB 1 tablet daily for airway inflammation 2015 PREDNISONE 20 MG TAB 224730 PREDNISONE Inactive NAPROXEN 500 MG TAB Take 1 tab BID NAPROXEN 500 MG TAB 931052 NAPROXEN Inactive ZOLOFT 50 MG TAB 1 tablet by mouth daily ZOLOFT 50 MG TAB 480950 SERTRALINE HCL Inactive LOMOTIL 2.5-0.025 MG TAB 1 tab po four times a day as needed for diarrhea LOMOTIL 2.5-0.025 MG TAB 9868469 DIPHENOXYLATE-AT ROPINE Inactive CETIRIZINE HCL 10 MG ORAL TABS 1 po qd PRN Allergies 2 CETIRIZINE HCL 10 MG ORAL TABS 0333426 CETIRIZINE HCL Inactive TUSSIONEX PENNKINETIC ER 10-8 MG/5ML LQCR 5ml po q12hr PRN Cough TUSSIONEX PENNKINETIC ER 10-8 MG/5ML LQCR HYDROCOD POLST-CHLORPHEN POLST Inactive NEXPLANON IMPL right arm subcutaneously NEXPLANO N IMPL ETONOGESTREL IMPL Inactive AMOXICILLIN 500 MG TABS take 1 tab po TID AMOXICILLIN 500 MG TABS 836225 AMOXICILLIN Inactive AMOXICILLIN 500 MG CAP 1 tab by mouth 3 times daily 09/23/20 AMOXICILLIN 500 MG CAP 533550 AMOXICILLIN Inactive ZITHROMAX 250 MG TAB 2 po today, then 1 po q days 2-5 ZITHROMAX 250 MG TAB 736974 AZITHROMYCIN Inactive ZITHROMAX 250 MG TAB 2 po today, then 1 po q days 2-5 ZITHROMAX 250 MG TAB 304716 AZITHROMYCIN Inactive AZITHROMYCIN 500 MG TABS 1 PO q day x 6 days 3 AZITHROMYCIN 500 MG TABS 6210627 AZITHROMYCIN Inactive BACTRIM 400-80 MG TABS take one po BID BA CTRIM 400-80 MG TABS 222811 SULFAMETHOXAZOLE-TRIMETHOPRIM Inactive AZITHROMYCIN 250 MG TABS 2 po qd x 1 day, then 1 po qd x 4 days AZITHROMYCIN 250 MG TABS 561988 AZITHROMYCIN Inactiv e PREDNISONE 20 MG TAB 2 tabs daily for 3 days, 1 t ab daily for 3 days, 1/2 tab daily for 2 days PREDNISONE 20 MG TAB 759724 PREDNISON E Inactive ZITHROMAX 250 MG TAB 2 po today, then 1 po q days 2-5 ZITHROMAX 250 MG TAB 652511 AZITHROMYCIN Inactive FLAGYL 500 MG TAB 1 tablet by mouth two times daily 07/11/29 FLAGYL 500 MG TAB 375232 METRONIDAZOLE Inactive AUGMENTIN 875-125 MG TAB 1 tab by mouth twice daily with food 08/12/16 AUGMENTIN 875-125 MG TAB 557544 AMOXICILLIN-POT CLAVULA ANGELO Inactive NAPROXEN 500 MG TAB one tab PO BID NAPROXEN 500 MG TAB 204217 NAPROXEN Inactive PREDNISONE 20 MG TAB 2 tabs daily for 3 days, 1 t ab daily for 3 days, 1/2 tab daily for 2 days PREDNISONE 20 MG TAB 276132 PREDNISON E Inactive AZITHROMYCIN 250 MG TABS 2 po qd x 1 day, then 1 po qd x 4 days AZITHROMYCIN 250 MG TABS 727809 AZITHROMYCIN Inactiv e PREDNISONE 20 MG TAB 2 tabs daily for 3 days, 1 t ab daily for 3 days, 1/2 tab daily for 2 days PREDNISONE 20 MG TAB 870313 PREDNISON E Inactive ZITHROMAX Z-EMIL 250 MG TABS 2 today, then 1 daily for 4 days 201 03/31/18 ZITHROMAX Z-EMIL 250 MG TABS 844092 AZITHROMYCIN Inac tive CEFDINIR 300 MG CAPS 1 po BID x 10 days C EFDINIR 300 MG CAPS 20030127 CEFDINIR Inactive CEFDINIR 300 MG CAPS 1 po BID x 10 days C EFDINIR 300 MG CAPS 015872 CEFDINIR Inactive PREDNISONE 20 MG TAB 2 tabs daily for 3 days, 1 t ab daily for 3 days, 1/2 tab daily for 2 days PREDNISONE 20 MG TAB 039693 PREDNISON E Inactive Advance Directives Directive Description [...] Value Unit Range Description Lab Report: Chlamydia/GC APTIMA/88507 - Lab chlamydia DNA probe NOT DETECTED NOT DETECTED Lab Report: Chlamydia/GC APTIMA/[id number] - Microbiology Neisseria gonorrhoeae DNA probe NOT [...] Negative Encounters Code Encounter Date Provider Facility CPT-46786 Level 3 Est. Patient 15:40:28 CDT Steve PULL TAB DEALER [facility]-02412 Level 3 Est. Patient 16:40:36 CDT Arie mcqueen MD [facility] CPT-95344 Level 4 Est. Patient 15:29:22 BOOM CRANE OPERATOR Arie mcqueen MD [facility] CPT-36772 Level 3 Est. Patient 15:18:16 BOOM CRANE OPERATOR Jono black [facility] CPT-51150 Level 4 Est. Patient 12:08:40 BOOM CRANE OPERATOR Steve PULL TAB DEALER [facility] CPT-28369 Level 3 Est. Patient 09:24:42 CDT Steve PULL TAB DEALER [facility] CPT-49006 Level 3 Est. Patient 09:12:56 CDT Arie mcqueen MD [facility] CPT-23041 Level 3 Est. Patient 16:40:54 CDT Jose Zhong MD [facility] CPT-38909 Level 2 Est. Patient 13:01:13 CDT Steve [facility]-76278 Level 3 Est. Patient 11:55:30 BOOM CRANE OPERATOR Jono black [facility] CPT-38487 Level 3 Est. Patient 09:52:36 BOOM CRANE OPERATOR Steve PAREKHN [facility] CPT-68713 Level 3 Est. Patient 16:25:33 BOOM CRANE OPERATOR Rich Rosales MD [facility] CPT-02498 Level 3 Est. Patient 20:33:55 CDT Arie mcqueen MD [facility] CPT-27435 Level 3 Est. Patient 14:18:20 CDT Rich Rosales MD [facility] CPT-16792 Level 4 Est. Patient 09:34:31 CDT Arie mcqueen MD [facility] CPT-73477 Level 3 Est. Patient 09:08:55 BOOM CRANE OPERATOR Liliana vincent MD PhD [facility] CPT-80498 Level 3 Est. Patient 16:44:07 BOOM CRANE OPERATOR Arie mcqueen MD [facility] CPT-88031 Level 3 Est. Patient 10:44:27 CDT Arie mcqueen MD [facility] CPT-21954 Level 3 Est. Patient 08:55:41 CDT Jose Zhong MD [facility] CPT-07528 Level 3 Est. Patient 18:37:31 CDT Liliana vincent MD PhD [facility] CPT-87356 Level 3 Est. Patient 14:28:23 CDT Abelardo HERNANDEZ [facility] CPT-63334 Level 3 Est. Patient 15:18:13 BOOM CRANE OPERATOR Arie cmqueen MD [facility] CPT-57793 Level 3 Est. Patient 10:11:29 BOOM CRANE OPERATOR Arie mcqueen MD [facility] CPT-33137 Level 3 Est. Patient 10:55:57 BOOM CRANE OPERATOR Jono black DO [facility] CPT-29951 Level 3 Est. Patient 17:29:05 CDT Arie mcqueen MD [facility] Procedures Code Procedure Name Date Entry Date Standard Desc ription CPT-37170 Nexplanon Removal 15:40:28 CDT CPT-58556 Sono transvag pelvis non OB uterus ovari es cervix - XRAY USE ONLY 08:58:14 BOOM CRANE OPERATOR CPT-43177 UA w micro - LAB USE ONLY 16:04:56 BOOM CRANE OPERATOR 2015 CPT-03858 Wet Prep/GEN - LAB USE ONLY 16:04:56 BOOM CRANE OPERATOR 20 08/10/29 CPT-07573 First Vx - Ix admin via ID I M or jet injects without counseling by physician 16:57:10 CDT CPT-40902 Fluzone Preservative Free Intramuscular Suspension 16:57:10 CDT CPT-J0696 Rocephin 1000 mg (Ceftriaxone) 11:49:23 CDT CPT-J1040 Depo Medrol 80 mg (Methyl Prednisolone A cetate) 11:49:23 CDT CPT-J1100 Decadron 8mg (Dexamethasone) 11:49:23 CDT 2 CPT-28329 Abx/Therapy Injection 11:49:23 CDT CPT-69667 Abx/Therapy Injection 11:49:23 CDT CPT-49798 Abd compl w upright 09:07:26 BOOM CRANE OPERATOR CPT-64616 Ear Wash 16:12:47 BOOM CRANE OPERATOR CPT-OV Office Visit 11:12:01 CDT CPT-OV Office Visit 15:30:23 CDT CPT-93533 Sono pelvis non OB uterus ovaries cervix 15:50:44 CDT CPT-72217 Hand comp min 3V 16:42:32 CDT CPT-51654 Abd compl w upright 12:17:01 CDT CPT-81821 Nexplanon Placement 15:07:39 BOOM CRANE OPERATOR CPT-93626 Removal of IUD 15:07:39 BOOM CRANE OPERATOR CPT-39298 TB Tubersol 12:09:32 CDT CPT-08881 TB Tubersol 13:55:43 CDT
--- OUTSIDE RECORDS SUMMARY | 2020-03-03 08:35 | XMS REPORT | Clinical Summary ---
Author Author Admin, Diamante Marcelo Organization [facility] Address Unknown Phone Unavailable Allergies, Adverse Reactions, Alerts Allergy Name Reaction Description Start Date Severity Status Pr ovider No Known Allergies Jessica Elder Conditions or Problems Problem Name Problem Code [...] Abdominal pain, other specified site; multiple sites BREAST CANCER ICD-V16.3 Inactive Jose Marcelo FH [...] Generic Name NDC Status Provider Patient Instruction AUGMENTIN 875-125 MG TAB 1 tab by mouth twice daily with food 08/12/16 AMOXICILLIN-POT CLAVULANATE [id number] No Longer Active Liliana Estrada MD PhD Active CYCLOBENZAPRINE HCL 10 MG TABS 1/2 - 1 tablet by mouth three times daily as needed for muscle spasm/pain CYCLOBENZAPRINE HCL 30824 881650 Active Liliana Estrada MD PhD Active GUAIFENESIN-CODEINE 100-10 MG/5ML ORAL SYRP 2 tsp every 6 hours prn GUAIFENESIN-CODEINE 45479856220 Active Liliana Estrada MD PhD Active VICKS DAYQUIL SEVERE COLD/FLU TABS 1 tab every 6 hours prn [id number] TABS 53841133399 Active Liliana Estrada MD PhD Active AMOXICILLIN 500 MG CAP 1 tab by mouth 3 times daily 08/12/16 AMOXICILLIN 53212346036 No Longer Active Liliana Estrada MD PhD Acti ve TESSALON PERLES 100 MG CAP 1 tablet by mouth 3 times daily 11/01 BENZONATATE 00098519978 No Longer Active Liliana Estrada MD PhD Active FLAGYL 500 MG TAB 1 tablet by mouth two times daily 07/11/29 METRONIDAZOLE 58932134820 No Longer Active Nilam Weber Active ZITHROMAX 250 MG TAB 2 po today, then 1 po q days 2-5 AZITHROMYCIN 78749103453 No Longer Active Arie Casper MD Acti ve VITAMINS 0.8 MG TABS take 1 tab po qday 08/08 [id number] 35247468198 No Longer Active Arie Casper MD Active IBUPROFEN 800 MG TABS take one po Q 8 hours IBU PROFEN 85794100388 No Longer Active Arie Casper MD Active [facility] TUSSIN COUGH/COLD CF 5-10-100 MG/5ML LIQD 2 teaspoons ev eliud 4 hours [id number]-GC 33803235678 No Longer Active Blaine Casper MD Active COMTREX COLD/COUGH DAY/NITE MS 5-2-10-325 MG MISC 2 caps deja ry 4 hours [id number]-HDM-FL-APAP 24397531217 No Longer Active Da aleksandra Casper MD Active CHLORASEPTIC MAX SORE THROAT 15-10 MG LOZG 1 every 2 hours prn 2 BENZOCAINE-MENTHOL 28087457681 No Longer Active Arie Marcelo Active PREDNISONE 20 MG TAB 2 tabs daily for 3 days, 1 t ab daily for 3 days, 1/2 tab daily for 2 days PREDNISONE 20991212383 No Longer Active Jose Zhong MD Active AZITHROMYCIN 250 MG TABS 2 po qd x 1 day, then 1 po qd x 4 days AZITHROMYCIN 93273132957 No Longer Active Jose Zhong MD Active ZOFRAN ODT 4 MG TBDP 1 po q6hr PRN Nausea ONDAN SETRON 17653829946 No Longer Active Rich Rosales MD Active ZOFRAN 4 MG TABS 1 tablet every 4 hours ONDANSE JERRELL HCL 73389151777 No Longer Active Rich Rosales MD Active MUCINEX 600 MG ST53O-DED Take 1-2 tablets every 12 hours GUAIFENESIN 80068311011 No Longer Active Rich Rosales MD Activ e BACTRIM 400-80 MG TABS take one po BID SULFAMETHOXAZOLE-TRIMETHOPRIM 10195039727 No Longer Active Abelardo HERNANDEZ Active AZITHROMYCIN 500 MG TABS 1 PO q day x 6 days AZ ITHROMYCIN 88854223850 No Longer Active Tin HERNANDEZ Active ZITHROMAX 250 MG TAB 2 po today, then 1 po q days 2-5 AZITHROMYCIN 37490672473 No Longer Active Arie Casper MD Acti ve ZITHROMAX 250 MG TAB 2 po today, then 1 po q days 2-5 AZITHROMYCIN 00712056698 No Longer Active Arie Casper MD Acti ve AMOXICILLIN 500 MG CAP 1 tab by mouth 3 times daily 20 09/23/20 AMOXICILLIN 84686735530 No Longer Active Arie Casper MD Acti ve BACTRIM DS 800-160 MG TAB 1 tab by mouth twice daily 2 TRIMETHOPRIM-SULFAMETHOXAZOLE 39875241075 No Longer Active Arie Casper MD Active AMOXICILLIN 500 MG TABS take 1 tab po TID AMOXI CILLIN 82112870495 No Longer Active Arie Casper MD Active BACTRIM DS 800-160 MG TAB 1 tab by mouth twice daily 2 BACTRIM DS 800-160 MG TAB TRIMETHOPRIM-SULFAMETHOXAZOLE Inac tive MUCINEX 600 MG [id number] Take 1-2 tablets every 12 hours MUCINEX 600 MG PG23Q-[id number] GUAIFENESIN Inactive ZOFRAN 4 MG TABS 1 tablet every 4 hours ZOFRAN 4 MG TABS 581333 ONDANSETRON HCL Inactive ZOFRAN ODT 4 MG TBDP 1 po q6hr PRN Nausea ZOFRAN ODT 4 MG TBDP 173007 ONDANSETRON Inactive CHLORASEPTIC MAX SORE THROAT 15-10 MG LOZG 1 every 2 hours prn 2 CHLORASEPTIC MAX SORE THROAT 15-10 MG LOZG BENZO ARINA-MENTHOL Inactive COMTREX COLD/COUGH DAY/NITE MS 5-2-10-325 MG MISC 2 caps deja ry 4 hours COMTREX COLD/COUGH DAY/NITE MS 5-2-10-325 MG MIS C [id number]-APAP Inactive [facility] TUSSIN COUGH/COLD CF 5-10-100 MG/5ML LIQD 2 teaspoons ev eliud 4 hours [facility] TUSSIN COUGH/COLD CF 5-10-100 MG/5ML LIQD [id number]-FM-LM Inactive IBUPROFEN 800 MG TABS take one po Q 8 hours IBUPROFEN 800 MG TABS 167027 IBUPROFEN Inactive VITAMINS 0.8 MG TABS take 1 tab po qday 08/08 VITAMINS 0.8 MG TABS [id number]-[id number]-KY-FA Inactive TESSALON PERLES 100 MG CAP 1 tablet by mouth 3 times daily 11/01 TESSALON PERLES 100 MG CAP 441455 BENZONATATE Inact zaid AMOXICILLIN 500 MG CAP 1 tab by mouth 3 times daily 08/12/16 AMOXICILLIN 500 MG CAP 609221 AMOXICILLIN Inactive AMOXICILLIN 500 MG TABS take 1 tab po TID AMOXICILLIN 500 MG TABS 166229 AMOXICILLIN Inactive AMOXICILLIN 500 MG CAP 1 tab by mouth 3 times daily 09/23/20 AMOXICILLIN 500 MG CAP 819036 AMOXICILLIN Inactive ZITHROMAX 250 MG TAB 2 po today, then 1 po q days 2-5 ZITHROMAX 250 MG TAB 4341878 AZITHROMYCIN Inactive ZITHROMAX 250 MG TAB 2 po today, then 1 po q days 2-5 ZITHROMAX 250 MG TAB 1578089 AZITHROMYCIN Inactive AZITHROMYCIN 500 MG TABS 1 PO q day x 6 days 3 AZITHROMYCIN 500 MG TABS 6568273 AZITHROMYCIN Inactive BACTRIM 400-80 MG TABS take one po BID BA CTRIM 400-80 MG TABS 371637 SULFAMETHOXAZOLE-TRIMETHOPRIM Inactive AZITHROMYCIN 250 MG TABS 2 po qd x 1 day, then 1 po qd x 4 days AZITHROMYCIN 250 MG TABS 6073740 AZITHROMYCIN Inactiv e PREDNISONE 20 MG TAB 2 tabs daily for 3 days, 1 t ab daily for 3 days, 1/2 tab daily for 2 days PREDNISONE 20 MG TAB 701350 PREDNISON E Inactive ZITHROMAX 250 MG TAB 2 po today, then 1 po q days 2-5 ZITHROMAX 250 MG TAB 8575633 AZITHROMYCIN Inactive FLAGYL 500 MG TAB 1 tablet by mouth two times daily 07/11/29 FLAGYL 500 MG TAB 819131 METRONIDAZOLE Inactive AUGMENTIN 875-125 MG TAB 1 tab by mouth twice daily with food 08/12/16 AUGMENTIN 875-125 MG TAB 637450 AMOXICILLIN-POT CLAVULA ANGELO Inactive Advance Directives Directive [...] Range Description blood pressure, diastolic - 8462-4 83 mm[Hg] [...] Negative;Positive Encounters Code Encounter Date Provider Facility CPT-76126 Level 4 Est. Patient 09:34:31 CDT Arie mcqueen MD [facility] CPT-74087 Level 3 Est. Patient 09:08:55 COURT BAILIFF Liliana vincent MD [facility] CPT-79578 Level 3 Est. Patient 16:44:07 COURT BAILIFF Arie mcqueen MD [facility] CPT-49005 Level 3 Est. Patient 10:44:27 CDT Arie mcqueen MD [facility] CPT-63752 Level 3 Est. Patient 08:55:41 CDT Jose Zhong MD [facility] CPT-80443 Level 3 Est. Patient 18:37:31 CDT Liliana vincent MD [facility] CPT-35830 Level 3 Est. Patient 14:28:23 CDT Abelardo HERNANDEZ [facility] CPT-52208 Level 3 Est. Patient 15:18:13 COURT BAILIFF Arie mcqueen MD [facility] CPT-12011 Level 3 Est. Patient 10:11:29 COURT BAILIFF Arie mcqueen MD [facility] CPT-12612 Level 3 Est. Patient 10:55:57 COURT BAILIFF Jono black DO [facility] CPT-23113 Level 3 Est. Patient 17:29:05 CDT Arie mcqueen MD [facility] Procedures Code Procedure Name Date Entry Date Standard Desc ription CPT-53885 Hand comp min 3V 16:42:32 CDT CPT-33672 Abd compl w upright 12:17:01 CDT CPT-74174 Nexplanon Placement 15:07:39 [address] BAILIFF CPT-82129 Removal of IUD 15:07:39 [address] BAILIFF CPT-11836 TB Tubersol 12:09:32 CDT CPT-03402 TB Tubersol 13:55:43 CDT
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
--- NOTE | 2020-03-03 09:30 | NUR ---
Pt to room 307 via bed accompanied by RN, S.o., infant. Pt and S.o. oriented to room and call light. packet explained. SCD's on and activated. IV pitocin to pump. Toradol given. Fresh ice water provided. Pt denies needs or concerns at this time.
[2020-03-03] MEDS: KETOROLAC 30 MG/ML VIAL IV SCH ×3 (09:59→23:13)
--- NOTE | 2020-03-03 11:16 | NUR ---
Dr. Mitchell called and notified of pt c/o pain. Order rec'd for 1mg dilaudid and 12.5mg benadryl
[2020-03-03] MEDS: diphenhydrAMINE 50 MG/ML INJ (BENADRYL) IVP PRN ×3 (12:29→20:29)
--- NOTE | 2020-03-03 12:30 | NUR ---
Pt assisted up to bathroom, unable to void at this time. Pericare performed, fresh vpad on. Pt assisted back to bed without incident.
[2020-03-03] MEDS: HYDROmorphone 2 MG/ML VIAL (DILAUDID) IV PRN ×3 (12:33→20:29)
--- NOTE | 2020-03-03 12:38 | NUR ---
RT notified of IS needed
--- NOTE | 2020-03-03 13:36 | OPERATIVE REPORT ---
DATE OF SERVICE: PREOPERATIVE DIAGNOSES: 1. A 34-year-old G4, P1 at 39 weeks gestation. 2. Previous section. POSTOPERATIVE DIAGNOSES: 1. A 34-year-old G4, P1 at 39 weeks gestation. 2. Previous section. PROCEDURE PERFORMED: Repeat low transverse section. SURGEON: Jovani Mitchell DO. REVENUE FIELD AGENT: Eulalia Dueñas DNP, who was necessary for retraction and manipulation throughout the procedure. ANESTHESIA: Spinal. ESTIMATED BLOOD LOSS: 500 mL. URINE OUTPUT: 75 mL clear at the end of the procedure. FLUIDS: 2100 mL of lactated Ringer's solution. FINDINGS: A live male weighing 7 pounds and 5 ounces, Apgars of 9 and 9. Grossly normal appearing uterus, bilateral fallopian tubes and ovaries. SPECIMEN SENT: None. INDICATIONS FOR PROCEDURE: This 34-year-old female is a patient, who is consulted to my office from by Dr. De Leon for repeat . Her care was uncomplicated. Upon consultation in my office, we discussed the risk of repeat versus the delivery. The patient opted to proceed with repeat . After all of her questions were answered pertaining to the recovery timeframe, hospital stay, postoperative restrictions and recovery in detail including the risks involved with the procedure, consent was obtained in the preoperative area and the patient was taken to the operating room. OPERATIVE REPORT IN DETAIL: Once in the operating room, spinal anesthesia was found to be adequate, she was placed in the supine position with leftward tilt and prepped and draped in a normal sterile fashion. A timeout was performed and anesthesia was tested. I then make a Pfannenstiel skin incision through the previously existing scar using a knife and carried down to the underlying fascia using Bovie cautery. The fascial incision was extended laterally using Bovie cautery. Superior aspect of the fascial incision was then grasped with Boni clamps, tented up and dissected off the underlying rectus muscles. The inferior aspect of the fascial incision was then grasped with Boni clamps, tented up and dissected off the underlying rectus muscles. Rectus muscle was then dissected down the midline using Valderrama scissors, which exposed the peritoneum, which I entered bluntly and extended using blunt traction. Linwood ring retractor was placed in the peritoneal incision, which offers excellent lateral sidewall retraction. I then identified the lower uterine segment, which was found to be slightly thinned out and I made a low transverse incision to the vesicouterine peritoneum and bluntly dissected off the lower uterine segment. I then proceeded with myotomy until membranes were visualized, at which point, I extended the uterine incision laterally and superiorly using bandage scissors. The amniotomy was performed using Allis clamp and clear fluid was noted. The infant was found in vertex presentation. With gentle fundal pressure, the 's head was elevated and delivered through the incision, where the nares and oropharynx were bulb suctioned. Anterior and posterior shoulders were delivered. The infant was then brought into the operative field. The cord was doubly clamped and cut and infant handed off to waiting nurses in attendance. Cord blood was collected. Three-vessel cord with intact placenta was delivered spontaneously thereafter. IV Pitocin was initiated to facilitate uterine contraction. Uterine fundus became firmer by manual massage. The uterus was then exteriorized and cleared of all endometrial clots and debris. I then proceeded with closing the uterine incision using 0 Vicryl suture in a running locked fashion. Second layer of imbricating 0 Monocryl was placed. Excellent hemostasis was noted after doing this. I then placed the uterus back within the pelvis and copiously irrigated the pelvis using normal saline. There was no active bleeding noted from any of my dissection planes. I placed Interceed antiadhesive over my low transverse incision and proceeded with closing the peritoneum after removing the Linwood ring retractor. The peritoneum was reapproximated using 0 Vicryl suture in a running fashion. The rectus muscle reapproximated using 3-0 Vicryl suture in an interrupted fashion. The fascia was reapproximated using 0 Vicryl suture in a running fashion. Subcutaneous tissue was reapproximated using 3-0 plain interrupted subcutaneous stitch and skin was reapproximated using 4-0 Monocryl in a running subcuticular. Dermabond was applied to incision and a sterile dressing with adhesive white tape. The patient tolerated the procedure well and was taken to the recovery area in stable condition. Lap and sponge counts were correct at the end of the procedure. Instrument counts correct as well. Two grams of Ancef was given preoperatively for infection prophylaxis. Job ID: [id number] DocumentID: [id number] Dictated Date: 03/03/2020 08:43:00 Cotton Feeder Date: 03/03/2020 13:36:02 Dictated By: JOVANI MITCHELL DO
[2020-03-03] MEDS ORDERED: CATHETER FLUSH 10 ML SYR IV SCH (14:00)
--- NOTE | 2020-03-03 15:30 | NUR ---
Pt assisted up to bathroom, +void 800ml clear, yellow urine. Pericare performed. Pt assisted back to bed without incident.
[2020-03-03] MEDS: DOCUSATE SODIUM 100 MG (COLACE) CAP PO SCH (20:07)
[2020-03-04] VITALS: BP 95/52
[2020-03-04] MEDS: diphenhydrAMINE 50 MG/ML INJ (BENADRYL) IVP PRN (00:53)
[2020-03-04] MEDS: HYDROmorphone 2 MG/ML VIAL (DILAUDID) IV PRN (00:53)
[2020-03-04 04:00] VITALS: BP 103/56
[2020-03-04] MEDS: KETOROLAC 30 MG/ML VIAL IV SCH (05:17)
[2020-03-04 06:07] LABS: BASOPHILS % (AUTO) 0 % (0-10); EOSINOPHILS # (AUTO) 0.2 10^3/uL (0.0-0.3); EOSINOPHILS % (AUTO) 2 % (0-10); HEMATOCRIT 27 % (35-52); HEMOGLOBIN 8.6 G/DL (11.5-16.0); LYMPHOCYTES # (AUTO) 1.8 X 10^3 (1.0-4.0); LYMPHOCYTES % (AUTO) 16 % (12-44); MEAN CORPUSCULAR HGB CONC 32 G/DL (32-36); MEAN CORPUSCULAR VOLUME 82 FL (80-99); MEAN PLATELET VOLUME 10.3 FL (7.4-10.4); MONOCYTES # (AUTO) 0.8 X 10^3 (0.0-1.0); MONOCYTES % (AUTO) 8 % (0-12); NEUTROPHILS # (AUTO) 8.1 X 10^3 (1.8-7.8); NEUTROPHILS % (AUTO) 74 % (42-75); PLATELET COUNT 158 10^3/uL (130-400); RED CELL DISTRIBUTION WIDTH 13.5 % (10.0-14.5)
[2020-03-04 06:09] LABS: MEAN CORPUSCULAR HEMOGLOBIN 26 PG (25-34)
--- NOTE | 2020-03-04 07:58 | Postpartum Progress Note ---
Note Note Day # 1 Subjective: Patient is without complaints. Ambulating, voiding. Tolerating a regular diet without nausea or vomiting. Normal lochia. Pain is well controlled with oral pain medications. Objective: Physical Exam: General - Alert and oriented, no apparent distress Abdomen - Soft, appropriately tender to palpation, non-distended, fundus firm at umbilicus Extremities - no edema, negative Eduar's bilaterally Incision- c/d/i Assessment: POD 2 RLTCS Acute blood loss anemia Plan: Routine care. Encourage breast feeding. Encourage ambulation. Ferrous sulfate supplementation. Plan for discharge tomorrow Vitals - Labs Vital Signs - I&O Vital Signs Date Time Temp Pulse Resp B/P (MAP) Pulse Ox O2 Delivery O2 Flow Rate FiO2 03/04/20 04:00 36.4 77 18 103/56 (72) 97 Room Air 03/04/20 00:00 36.5 74 16 95/52 (66) 97 Room Air 03/03/20 21:00 97 Room Air 03/03/20 20:00 36.9 83 16 101/58 (72) 97 Room Air 03/03/20 16:50 36.8 65 18 110/63 (79) 100 Room Air 03/03/20 14:30 98 Room Air 03/03/20 14:20 37.5 69 18 104/68 (80) 100 Room Air 03/03/20 10:00 36.2 57 18 115/66 (82) 100 Room Air 03/03/20 09:27 36.2 18 109/97 (101) 100 Room Air 03/03/20 09:27 Room Air 03/03/20 09:12 Room Air 03/03/20 09:12 36.1 18 97/74 (82) 100 Room Air 03/03/20 08:57 36.2 16 100/68 (79) 100 Room Air 03/03/20 08:57 Room Air 03/03/20 08:42 Room Air 03/03/20 08:42 36.0 16 109/97 (101) 100 Room Air 03/03/20 08:27 36.2 16 103/73 (83) 100 Room Air 03/03/20 08:27 Room Air I & O 03/04/20 07:00 Intake Total 2550 ml Output Total 2975 ml Balance -425 ml Labs Laboratory Tests 03/04/20 05:54: White Blood Count 11.0, Red Blood Count 3.25L, Hemoglobin 8.6#L, Hematocrit 27L, Mean Corpuscular Volume 82, Mean Corpuscular Hemoglobin 26, Mean Corpuscular Hemoglobin Concent 32, Red Cell Distribution Width 13.5, Platelet Count 158, Mean Platelet Volume 10.3, Neutrophils (%) (Auto) 74, Lymphocytes (%) (Auto) 16, Monocytes (%) (Auto) 8, Eosinophils (%) (Auto) 2, Basophils (%) (Auto) 0, Neutrophils # (Auto) 8.1H, Lymphocytes # (Auto) 1.8, Monocytes # (Auto) 0.8, Eosinophils # (Auto) 0.2, Basophils # (Auto) 0.0 MARYANA GARCIA DO March 04, 2020 07:58
--- NOTE | 2020-03-04 08:00 | NUR ---
Dr Mitchell here to see pt. Plan for D/C tomorrow. No orders rec'd.
[2020-03-04 09:04] VITALS: BP 97/53
[2020-03-04] MEDS: DOCUSATE SODIUM 100 MG (COLACE) CAP PO SCH ×2 (09:06→20:05)
--- NOTE | 2020-03-04 10:01 | Anesthesia-Regional Post-Op ---
Regional Patient Condition Mental Status: Alert, Oriented x3 Circulation: Same as Pre-Op Headache: Absent Sensation: Full Recovery Motor Block: Absent Post Op Complications Complications None Follow Up Care/Instructions Patient Instructions None needed. Anesthesia/Patient Condition Patient is doing well, no complaints, stable vital signs, no apparent adverse anesthesia problems. No complications reported per nursing. D/C home per [facility] Criteria: SARAH Ly CRNA March 04, 2020 10:01
[2020-03-04] MEDS: IBUPROFEN 800 MG (MOTRIN) TAB PO SCH ×2 (11:42→20:05)
--- NOTE | 2020-03-04 13:52 | NUR ---
Dr Mitchell notified of pt c/o pain. order rec'd for lorab 5 1-2tabs q 4-6hrs
[2020-03-04 14:38] VITALS: BP 110/50
[2020-03-04] MEDS: HYDROcodone/APAP 5 MG/325 MG (LORTAB) TAB PO PRN ×3 (14:38→22:01)
[2020-03-04 20:07] VITALS: BP 102/62
[2020-03-05 01:15] VITALS: BP 114/73
[2020-03-05] MEDS: IBUPROFEN 800 MG (MOTRIN) TAB PO SCH ×3 (03:30→16:20)
[2020-03-05] MEDS: HYDROcodone/APAP 5 MG/325 MG (LORTAB) TAB PO PRN (05:23)
--- NOTE | 2020-03-05 08:00 | NUR ---
DR. GARCIA HERE TO SEE PT. PLAN FOR DISCHARGE TODAY.
--- NOTE | 2020-03-05 08:03 | Postpartum Progress Note ---
Note Note Day # 2 Subjective: Patient is without complaints. Ambulating, voiding. Tolerating a regular diet without nausea or vomiting. Normal lochia. Pain is well controlled with oral pain medications. Objective: Physical Exam: General - Alert and oriented, no apparent distress Abdomen - Soft, appropriately tender to palpation, non-distended, fundus firm at umbilicus Extremities - no edema, negative Eduar's bilaterally Incision- c/d/i Assessment: POD 2 RLTCS Acute blood loss anemia Plan: Routine care. Encourage breast feeding. Encourage ambulation. Ferrous sulfate supplementation. Plan for discharge today Vitals - Labs Vital Signs - I&O Vital Signs Date Time Temp Pulse Resp B/P (MAP) Pulse Ox O2 Delivery O2 Flow Rate FiO2 03/05/20 01:15 37.1 73 18 114/73 (87) 98 Room Air 03/05/20 01:15 98 Room Air 03/04/20 20:07 36.5 65 20 102/62 (75) 97 Room Air 03/04/20 14:38 36.9 72 20 110/50 (70) 03/04/20 09:04 37.2 75 18 97/53 (68) 97 Room Air MARYANA GARCIA DO March 05, 2020 08:03
[2020-03-05] MEDS ORDERED: HYDR-83 PO (08:17)
[2020-03-05 09:00] VITALS: BP 107/54
--- NOTE | 2020-03-05 09:00 | NUR ---
A.M. ASSESSMENT COMPLETED. VSS.
--- NOTE | 2020-03-05 10:00 | NUR ---
SHOWERED WITHOUT PROBLEMS.
[2020-03-05] MEDS: DOCUSATE SODIUM 100 MG (COLACE) CAP PO SCH (10:17)
--- NOTE | 2020-03-05 11:30 | NUR ---
PT TEARFUL AT TIMES R/T TRYING TO BREASTFEED AND POSSIBLY NOT GOING HOME TODAY. HAS BEEN IN OFF AND ON TODAY TO ASSIST PT.
[2020-03-05 13:30] VITALS: BP 101/55
--- NOTE | 2020-03-05 14:30 | NUR ---
CARING FOR INFANT IN ROOM. PLANNING TO SUPPLEMENT WITH FORMULA. SEE NOTES.
--- NOTE | 2020-03-05 16:00 | NUR ---
SPOUSE HAD TO LEAVE EARLIER BECAUSE OF WORK. MEDICATIONS BROUGHT TO HOSPITAL FOR PT.
--- NOTE | 2020-03-05 16:30 | NUR ---
DECISION TO SWITCH TO FORMULA FEEDING BY PATIENT. SUPPORTIVE TO PT. PT TEARFUL AND STATES WANTS WHAT IS BEST FOR INFANT. SUGGESTED SHE MAY GET HOME AND DECIDE TO RESUME OR DO BOTH BUT WHATEVER SHE DECIDES IT IS HER DECISION AND WE WILL SUPPORT HER WISHES.
--- NOTE | 2020-03-05 17:45 | NUR ---
DISCHARGE INSTRUCTIONS REVIEWED WITH COPY TO PT.STATES UNDERSTANDING OF ALL INSTRUCTIONS AND NEED TO F/U SCHEDULED AND NEEDED. PRESCRIPTIONS FILLED EARLIER AND RETURNED BY SPOUSE.
[2020-03-05 18:00] VITALS: BP 101/55
--- NOTE | 2020-03-05 18:00 | NUR ---
DISMISSED FROM WS IN STABLE CONDITION. 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
== END 2020-03-05 18:00 | disposition home or self-care (01) | DRG 787 ==
LOC: LDRP 06:27
PROVIDERS: ADMIT Obstetrics & Gynecology; ATTEND Obstetrics & Gynecology
PROC: 10D00Z1 Extraction of Products of Conception, Low, Open Approach (ICD-10-PCS; principal; 2020-03-04)
DX: O34.211 Maternal care for low transverse scar from previous cesarean delivery (principal); O90.81 Anemia of the puerperium; D62 Acute posthemorrhagic anemia; Z37.0 Single live birth; Z3A.39 39 weeks gestation of pregnancy
CPT/HCPCS: 36415; 85025; 86850; 86900; 86901; 94664